=== PATIENT | male | born 1960 | race American Indian/Alaskan Native ===

== ENCOUNTER 2020-06-17 11:32 | Inpatient (IN) | payer OTHER ==
[2020-06-17] MEDS ORDERED: dexAMETHasone 4 MG/ML VIAL IV ONE (12:05)
--- NOTE | 2020-06-17 12:05 | Emergency Department Report ---
ED General Adult HPI - General Chief complaint: Dyspnea/Respdistress Stated complaint: SOB PUI?: Yes Time Seen by Provider: 06/17/20 11:40 Source: patient, EMS ( EMS documentation not available at time of chart dictation ), RN notes reviewed Mode of arrival: Stretcher Limitations: No Limitations, Physical Limitation - History of Present Illness Initial comments: The patient was evaluated in the emergency department for symptoms described in the history of present illness. He/she was evaluated in the context of the global COVID-19 pandemic, which necessitated consideration that the patient might be at risk for infection with the virus that causes COVID-19. Institutional protocols and algorithms that pertain to the evaluation of patients at risk for COVID-19 are in a state of rapid change based on information released by regulatory bodies including the CDC and federal and state organizations. These policies and algorithms were followed during the patient's care in the emergency department. Please note that these policies, procedures and recommendations changed on a rapid basis. During the entire history and physical examination, I had on complete personal protective equipment The patient is a 59-year-old gentleman. He is not known to myself previously. He was diagnosed with COVID-19 over the weekend. He presents to the ER today with a complaint of painless malaise, fatigue and shortness of breath. He was hypoxic in the field to the high 60s/low 70s. He was taking antibiotics over the weekend, not sure if he is taking steroids. He denies physical pain. He denies loss of taste and smell. Denies vomiting. Symptoms constant. Worsened with physical exertion. Decreased with rest. -: Gradual, days(s) Severity scale (0 -10): 2 Consistency: constant Improves with: rest Worsens with: movement - Related Data Allergies Allergy/AdvReac Type Severity Reaction Status Date / Time No Known Allergies Allergy Unverified 06/17/20 14:24 ED Review of Systems ROS: Stated complaint: SOB Other details as noted in HPI Constitutional: fever, malaise, weakness Eyes: denies: eye discharge ENT: congestion Respiratory: cough, shortness of breath Cardiovascular: denies: chest pain Gastrointestinal: denies: abdominal pain, nausea Musculoskeletal: myalgia Neurological: weakness Hematological/Lymphatic: denies: easy bleeding ED Past Medical Hx - Social History Smoking Status: Never Smoker Substance Use Type: None ED Physical Exam - General Limitations: Physical Limitation General appearance: alert, anxious, in distress, obese - Head Head exam: Present: atraumatic, normocephalic - Eye Eye exam: Present: normal appearance, EOMI. Absent: nystagmus - ENT ENT exam: Present: normal exam, normal orophraynx, mucous membranes moist, normal external ear exam - Neck Neck exam: Present: normal inspection, full ROM. Absent: tenderness, meningismus - Respiratory Respiratory exam: Present: respiratory distress, accessory muscle use. Absent: stridor - Cardiovascular Cardiovascular Exam: Present: normal rhythm, tachycardia, normal heart sounds. Absent: systolic murmur, diastolic murmur, rubs, gallop - GI/Abdominal GI/Abdominal exam: Present: soft. Absent: distended, tenderness, guarding, rebound, rigid, pulsatile mass - Rectal Rectal exam: Present: deferred - Extremities Exam Extremities exam: Present: normal inspection, full ROM, other (2+ pulses noted in the bilateral upper and lower extremities. There is no palpable cord. negative Homans sign. Muscular compartments are soft. The pelvis is stable.). Absent: pedal edema, calf tenderness - Back Exam Back exam: Present: normal inspection. Absent: tenderness, CVA tenderness (R), CVA tenderness (L), paraspinal tenderness, vertebral tenderness - Neurological Exam Neurological exam: Present: alert - Psychiatric Psychiatric exam: Present: anxious, other (No facial droop. Tongue midline. Extraocular movements intact bilaterally. Facial sensation intact to light touch in V1, V2, V3 distribution bilaterally. 5 and a 5 strength in 4 extremities. Sensation intact to light touch in 4 extremities.) - Skin Skin exam: Present: warm, dry, intact, normal color. Absent: rash ED Course Vital Signs 06/17/20 06/17/20 06/17/20 11:53 11:55 12:42 Temperature 97.7 F Pulse Rate 127 H Respiratory 14 14 Rate Blood Pressure 115/72 Blood Pressure [Left] O2 Sat by Pulse 93 93 Oximetry 06/17/20 06/17/20 12:59 14:12 Temperature Pulse Rate 123 H Respiratory 25 H Rate Blood Pressure Blood Pressure 112/71 [Left] O2 Sat by Pulse 95 94 Oximetry - Reevaluation(s) Reevaluation #1: 06/17/20 13:23 Appreciate that the patient meets sepsis/SIRS criteria. However, Covid patients have a propensity to develop acute respiratory distress syndrome. Therefore, patient will not benefit from aggressive fluid bolus 30 cc/kg. He will be given gentle fluids, and reassess. Reevaluation #2: 06/17/20 13:42 Laboratory studies reviewed and appreciated. Transaminitis and inflammatory markers consistent with Covid illness. We will admit to the hospitalist service Patient improved on high flow high humidity nasal cannula therapy. Reevaluation #3: 06/17/20 14:14 Hospital physician, Dr. Robb, to admit to the medical service. Patient improved on high flow, O2 sat particularly improved when the patient in prone position - Consultations Consultation #1: 06/17/20 14:29 Discussed the patient's history, physical, and pertinent findings with [place] administrative help physician, Dr. Cortez, Who has authorized the patient to be admitted to this [facility] ED Medical Decision Making - Lab Data Result diagrams: 06/17/20 12:33 06/17/20 12:33 Vital Signs 06/17/20 06/17/20 11:53 11:55 Pulse Rate 127 H Respiratory 14 14 Rate Blood Pressure 115/72 O2 Sat by Pulse 93 93 Oximetry Lab Results 06/17/20 06/17/20 06/17/20 Range/Units 12:33 12:33 12:33 WBC 19.5 H (4.5-11.0) K/mm3 RBC 5.18 H (3.65-5.03) M/mm3 Hgb 15.5 H (11.8-15.2) gm/dl Hct 45.2 (35.5-45.6) % MCV 87 (84-94) fl MCH 30 (28-32) pg MCHC 34 (32-34) % RDW 13.4 (13.2-15.2) % Plt Count 185 (140-440) K/mm3 Lymph % (Auto) 3.8 L (13.4-35.0) % Bullock % (Auto) 2.7 (0.0-7.3) % Eos % (Auto) 0.0 (0.0-4.3) % Baso % (Auto) 0.2 (0.0-1.8) % Lymph # (Auto) 0.7 L (1.2-5.4) K/mm3 Bullock # (Auto) 0.5 (0.0-0.8) K/mm3 Eos # (Auto) 0.0 (0.0-0.4) K/mm3 Baso # (Auto) 0.0 (0.0-0.1) K/mm3 Seg Neutrophils % Cigar Head Perforator Seg Neutrophils # 18.2 H (1.8-7.7) K/mm3 PT 16.5 H (12.2-14.9) Sec. INR 1.33 H (0.87-1.13) D-Dimer 1025.04 H (0-234) ng/mlDDU Sodium 130 L (137-145) mmol/L Potassium 3.4 L (3.6-5.0) mmol/L Chloride 95.0 L (98-107) mmol/L Carbon Dioxide 24 (22-30) mmol/L Anion Gap 14 mmol/L BUN 21 H (9-20) mg/dL Creatinine 0.8 (0.8-1.3) mg/dL Estimated GFR > 60 ml/min BUN/Creatinine Ratio 26 % Glucose 137 H (75-100) mg/dL Lactic Acid (0.7-2.0) mmol/L Calcium 7.9 L (8.4-10.2) mg/dL Magnesium 2.20 (1.7-2.3) mg/dL Total Bilirubin 0.70 (0.1-1.2) mg/dL AST 84 H (5-40) units/L ALT 67 H (7-56) units/L Alkaline Phosphatase 59 (35-129) units/L Lactate Dehydrogenase 437 H (91-180) units/L Total Creatine Kinase 310 H (55-170) units/L Troponin T < 0.010 (0.00-0.029) ng/mL C-Reactive Protein 27.90 H (0.00-1.30) mg/dL Total Protein 6.7 (6.3-8.2) g/dL Albumin 2.9 L (3.9-5) g/dL Albumin/Globulin Ratio 0.8 % // Range/Units 12:33 WBC (4.5-11.0) K/mm3 RBC (3.65-5.03) M/mm3 Hgb (11.8-15.2) gm/dl Hct (35.5-45.6) % MCV (84-94) fl MCH (28-32) pg MCHC (32-34) % RDW (13.2-15.2) % Plt Count (140-440) K/mm3 Lymph % (Auto) (13.4-35.0) % Bullock % (Auto) (0.0-7.3) % Eos % (Auto) (0.0-4.3) % Baso % (Auto) (0.0-1.8) % Lymph # (Auto) (1.2-5.4) K/mm3 Bullock # (Auto) (0.0-0.8) K/mm3 Eos # (Auto) (0.0-0.4) K/mm3 Baso # (Auto) (0.0-0.1) K/mm3 Seg Neutrophils % Seg Neutrophils # (1.8-7.7) K/mm3 PT (12.2-14.9) Sec. INR (0.87-1.13) D-Dimer (0-234) ng/mlDDU Sodium (137-145) mmol/L Potassium (3.6-5.0) mmol/L Chloride (98-107) mmol/L Carbon Dioxide (22-30) mmol/L Anion Gap mmol/L BUN (9-20) mg/dL Creatinine (0.8-1.3) mg/dL Estimated GFR ml/min BUN/Creatinine Ratio % Glucose (75-100) mg/dL Lactic Acid 2.50 H* (0.7-2.0) mmol/L Calcium (8.4-10.2) mg/dL Magnesium (1.7-2.3) mg/dL Total Bilirubin (0.1-1.2) mg/dL AST (5-40) units/L ALT (7-56) units/L Alkaline Phosphatase (35-129) units/L Lactate Dehydrogenase (91-180) units/L Total Creatine Kinase (55-170) units/L Troponin T (0.00-0.029) ng/mL C-Reactive Protein (0.00-1.30) mg/dL Total Protein (6.3-8.2) g/dL Albumin (3.9-5) g/dL Albumin/Globulin Ratio % - Radiology Data Radiology results: pending, report reviewed, image reviewed XR chest 1V ap INDICATION / CLINICAL INFORMATION: Dyspnea COMPARISON: None available. FINDINGS: SUPPORT DEVICES: None. HEART / MEDIASTINUM: No significant abnormality. LUNGS / PLEURA: Lateral airspace disease. Costophrenic sulci are sharp. No pneumothorax. ADDITIONAL FINDINGS: No significant additional findings. IMPRESSION: 1. Bilateral airspace disease concerning for infection. Covid is a consideration. Signer Name: Alan Parrish MD Signed: 06/17/2020 11:56 AM Workstation Name: Register My [employer] - Medical Decision Making Differential diagnosis, including but not limited to: Pneumonia, COVID-19, acute hypoxic respiratory failure Assessment and plan: 59-year-old gentleman, with diagnosed Covid over the weekend, likely presenting with natural history of Covid, and acute hypoxic r espiratory failure. He is protecting his airway, awake, alert, oriented, not encephalopathic. We will start high flow nasal cannula oxygen therapy. We will start antibiotic therapy empirically, and steroids. Courtesy consultation placed for infectious disease. Laboratory studies will be ordered to risk stratify for Covid cytokine storm. Will defer to inpatient team to follow-up on infectious disease consultation which I have placed as a courtesy. Patient will require admission to the hospital once initial diagnostics have resulted. I discussed this plan of care with the patient, who verbalized understanding, and is amenable to this plan of care. Critical Care Time: Yes Critical care time in (mins) excluding proc time.: 35 Critical care attestation.: If time is entered above; I have spent that time in minutes in the direct care of this critically ill patient, excluding procedure time. ED Disposition Clinical Impression: Acute respiratory failure with hypoxia, COVID-19, SIRS (systemic inflammatory response syndrome), Transaminitis, Hypokalemia Disposition: OP ADMIT IP TO THIS HOSP Is pt being admited?: Yes Does the pt Need Aspirin: No Condition: Serious Referrals: JAJA AYALA,ARIES Magallon [Other] - 3-5 Days
[2020-06-17] MEDS ORDERED: AZITHROMYCIN/NS 500 MG/250 ML 500 MG/250 ML BAG IV ONE (12:26)
[2020-06-17] MEDS ORDERED: cefTRIAXone/NS 1 GM/50 ML 1 GM/50 ML BAG IV ONE (12:26)
--- NOTE | 2020-06-17 13:00 | XRay Report ---
XR chest 1V ap INDICATION / CLINICAL INFORMATION: Dyspnea COMPARISON: None available. FINDINGS: SUPPORT DEVICES: None. HEART / MEDIASTINUM: No significant abnormality. LUNGS / PLEURA: Lateral airspace disease. Costophrenic sulci are sharp. No pneumothorax. ADDITIONAL FINDINGS: No significant additional findings. IMPRESSION: 1. Bilateral airspace disease concerning for infection. Covid is a consideration. Signer Name: Alan Parrish MD Signed: 06/17/2020 12:56 PM Workstation Name: [id number]
[2020-06-17 13:05] LABS: Hematocrit 45.2 % (35.5-45.6); Hemoglobin 15.5 gm/dl (11.8-15.2); Mean Corpuscular HGB Conc 34 % (32-34); Mean Corpuscular Volume 87 fl (84-94); Platelet Count 185 K/mm3 (140-440); Red Blood Count 5.18 M/mm3 (3.65-5.03); Red Cell Distribution Width 13.4 % (13.2-15.2)
[2020-06-17 13:09] LABS: Basophils % (Auto) 0.2 % (0.0-1.8); Lymphocytes # (Auto) 0.7 K/mm3 (1.2-5.4); Lymphocytes % (Auto) 3.8 % (13.4-35.0); Monocytes # (Auto) 0.5 K/mm3 (0.0-0.8); Monocytes % (Auto) 2.7 % (0.0-7.3)
[2020-06-17 13:14] LABS: INR 1.33 (0.87-1.13)
[2020-06-17 13:25] LABS: Alanine Aminotransferase 67 units/L (7-56); Albumin 2.9 g/dL (3.9-5); BUN/Creatinine Ratio 26; Blood Urea Nitrogen 21 mg/dL (9-20); Calcium 7.9 mg/dL (8.4-10.2); Hemolysis Index 8
--- NOTE | 2020-06-17 14:16 | History and Physical Report ---
<NELSON AVENDAÑO - Last Filed: 06/17/20 14:28> Medications and Allergies Allergies Allergy/AdvReac Type Severity Reaction Status Date / Time No Known Allergies Allergy Unverified 06/17/20 14:24 Active Meds: Active Medications Acetaminophen (Acetaminophen 325 Mg Tab) 650 mg PO Q4H PRN PRN Reason: Pain MILD(1-3)/Fever >100.5/[facility]OBERTS Ascorbic Acid (Ascorbic Acid 250 Mg Tab) 250 mg PO BID [facility] Cholecalciferol (Cholecalciferol (Vit D3) 400 Unit Tab) 1,000 unit PO QDAY [facility] Heparin Sodium (Porcine) (Heparin 5,000 Unit/1 Ml Vial) 5,000 unit SUB-Q Q12HR [facility] Hydromorphone HCl (Hydromorphone 1 Mg/1 Ml Inj) 0.25 mg IV Q4H PRN PRN Reason: Pain, Moderate (4-6) Potassium Chloride (Kcl 10meq/100ml) 10 meq in 100 mls @ 100 mls/hr IV Q1H [facility] Stop: 06/17/20 15:59 Ceftriaxone Sodium (Rocephin/Ns 2 Gm/100 Ml) 2 gm in 100 mls @ 200 mls/hr IV Q24H [facility]; Protocol Azithromycin (Zithromax/Ns) 500 mg in 250 mls @ 250 mls/hr IV Q24H [facility]; Protocol Methylprednisolone Sodium Succinate (Methylprednisolone Sod Succinate 40 Mg/1 Ml Inj) 40 mg IV Q8HR [facility] Ondansetron HCl (Ondansetron 4 Mg/2 Ml Inj) 4 mg IV Q8H PRN PRN Reason: Nausea And Vomiting Sodium Chloride (Sodium Chloride 0.9% 10 Ml Flush Syringe) 10 ml IV BID [facility] Sodium Chloride (Sodium Chloride 0.9% 10 Ml Flush Syringe) 10 ml IV PRN PRN PRN Reason: LINE FLUSH Zinc Sulfate (Zinc Sulfate 220 Mg Cap) 220 mg PO BID [facility] Exam - Constitutional Vitals: Temp Pulse Resp BP Pulse Ox 97.7 F 123 H 25 H 112/71 94 06/17/20 12:42 06/17/20 14:12 06/17/20 14:12 06/17/20 14:12 06/17/20 14:12 HEART Score - HEART Score Troponin: Troponin T < 0.010 ng/mL (0.00-0.029) 06/17/20 12:33 Results - Labs CBC & Chem 7: 06/17/20 12:33 06/17/20 12:33 Labs: Abnormal lab results 06/17/20 06/17/20 06/17/20 Range/Units 12:33 12:33 12:33 WBC 19.5 H (4.5-11.0) K/mm3 RBC 5.18 H (3.65-5.03) M/mm3 Hgb 15.5 H (11.8-15.2) gm/dl Lymph % (Auto) 3.8 L (13.4-35.0) % Lymph # (Auto) 0.7 L (1.2-5.4) K/mm3 Seg Neutrophils # 18.2 H (1.8-7.7) K/mm3 PT 16.5 H (12.2-14.9) Sec. INR 1.33 H (0.87-1.13) D-Dimer 1025.04 H (0-234) ng/mlDDU Sodium 130 L (137-145) mmol/L Potassium 3.4 L (3.6-5.0) mmol/L Chloride 95.0 L (98-107) mmol/L BUN 21 H (9-20) mg/dL Glucose 137 H (75-100) mg/dL Lactic Acid (0.7-2.0) mmol/L Calcium 7.9 L (8.4-10.2) mg/dL AST 84 H (5-40) units/L ALT 67 H (7-56) units/L Lactate Dehydrogenase 437 H (91-180) units/L Total Creatine Kinase 310 H (55-170) units/L C-Reactive Protein 27.90 H (0.00-1.30) mg/dL Albumin 2.9 L (3.9-5) g/dL 06/17/20 Range/Units 12:33 WBC (4.5-11.0) K/mm3 RBC (3.65-5.03) M/mm3 Hgb (11.8-15.2) gm/dl Lymph % (Auto) (13.4-35.0) % Lymph # (Auto) (1.2-5.4) K/mm3 Seg Neutrophils # (1.8-7.7) K/mm3 PT (12.2-14.9) Sec. INR (0.87-1.13) D-Dimer (0-234) ng/mlDDU Sodium (137-145) mmol/L Potassium (3.6-5.0) mmol/L Chloride (98-107) mmol/L BUN (9-20) mg/dL Glucose (75-100) mg/dL Lactic Acid 2.50 H* (0.7-2.0) mmol/L Calcium (8.4-10.2) mg/dL AST (5-40) units/L ALT (7-56) units/L Lactate Dehydrogenase (91-180) units/L Total Creatine Kinase (55-170) units/L C-Reactive Protein (0.00-1.30) mg/dL Albumin (3.9-5) g/dL <FLAVIA GALINDO - Last Filed: 06/17/20 16:12> History of Present Illness Chief complaint: I cannot breathe History of present illness: 59 YO Male with Obesity Hypoventilation Syndrome presents to ED for evaluation. Patient reports I feel weak and tired". Patient states that he has experienced generalized weakness, malaise, fatigue, decreased exercise tolerance, and shortness of breath over the past 1 week with persistently worsening symptoms with over the same timeframe. Patient states that he underwent a car coronavirus test over the weekend and was found to be coronavirus positive. EMS was notified and upon arrival the patient was found to be in distress with a pulse oximetry in the 60s. The patient was placed on supplemental oxygen and transported to [facility] for further care and evaluation of the aforementioned symptoms. Patient seen and evaluated in the emergency department. All lab imaging studies reviewed. Patient found to have a pulse oximetry of 76% on room air which is consistent with acute hypoxemic respiratory failure. Patient ini tiated on supplemental oxygen with mild improvement in symptoms. Patient also underwent chest x-ray and was found to have bilateral pneumonia complicated by sepsis, as well as acidosis. Patient admitted to medical floor and initiated on coronavirus protocol as well as pneumonia protocol. Patient denies fever, chills, chest pain, palpitations, productive cough, skin rash, recent ill contacts. No prior admission for review. No medication listed at time of admission for reconciliation. Advanced care planning conducted in ED. Past History Past Medical History: other (See HPI) Past Surgical History: No surgical history, Other (Reviewed) Social history: . denies: smoking, alcohol abuse, prescription drug abuse Family history: diabetes, hypertension Medications and Allergies Active Meds: Active Medications Potassium Chloride (Kcl 10meq/100ml) 10 meq in 100 mls @ 100 mls/hr IV Q1H [facility] Stop: 06/17/20 15:59 Review of Systems Constitutional: fatigue, weakness, malaise, no weight loss, no weight gain, no fever, no chills Ears, nose, mouth and throat: no ear pain, no ear discharge, no tinnitis, no decreased hearing, no nasal congestion, no sinus pain Cardiovascular: shortness of breath, no chest pain, no orthopnea, no palpitati ons Respiratory: cough with sputum, shortness of breath, no cough, no hemoptysis Gastrointestinal: no abdominal pain, no nausea, no vomiting, no diarrhea Genitourinary Male: no hematuria, no flank pain, no discharge, no urinary frequency Rectal: no pain, no incontinence, no bleeding Musculoskeletal: no neck stiffness, no neck pain, no arm numbness/tingling Integumentary: no rash, no pruritis, no redness, no sores, no wounds Neurological: no transient paralysis, no paralysis, no weakness, no parathesias, no numbness, no seizures, no syncope Psychiatric: no anxiety, no change in sleep habits, no insomnia, no hypersomnia, no change in appetite, no suicidal ideation, no disorientation Endocrine: no cold intolerance, no heat intolerance, no polyphagia, no polydipsia, no polyuria, no nocturia, no excessive sweating Hematologic/Lymphatic: no easy bruising, no lymphadenopathy, no lymphedema Allergic/Immunologic: no urticaria, no allergic rhinitis, no persistent infections, no anaphylaxis Exam - Constitutional Vitals: Temp Pulse Resp BP Pulse Ox 97.7 F 123 H 25 H 112/71 94 06/17/20 12:42 06/17/20 14:12 06/17/20 14:12 06/17/20 14:12 06/17/20 14:12 General appearance: Present: mild distress - EENT Eyes: Present: PERRL ENT: hearing intact, clear oral mucosa - Neck Neck: Present: supple, normal ROM - Respiratory Respiratory effort: normal, labored, accessory muscle use Respiratory: bilateral: diminished, rhonchi - Cardiovascular Heart Sounds: Present: S1 & S2. Absent: rub, click - Extremities Extremities: pulses symmetrical, No edema Peripheral Pulses: within normal limits - Abdominal General gastrointestinal: Present: soft, non-tender, non-distended, normal bowel sounds Male genitourinary: Present: normal - Integumentary Integumentary: Present: clear, warm, dry - Musculoskeletal Musculoskeletal: generalized weakness - Psychiatric Psychiatric: appropriate mood/affect, intact judgment & insight - Neurologic Neurologic: CNII-XII intact, moves all extremities HEART Score - HEART Score Troponin: Troponin T < 0.010 ng/mL (0.00-0.029) 06/17/20 12:33 Results - Labs CBC & Chem 7: 06/17/20 12:33 06/17/20 14:48 Labs: Abnormal lab results 06/17/20 06/17/20 06/17/20 Range/Units 12:33 12:33 12:33 WBC 19.5 H (4.5-11.0) K/mm3 RBC 5.18 H (3.65-5.03) M/mm3 Hgb 15.5 H (11.8-15.2) gm/dl Lymph % (Auto) 3.8 L (13.4-35.0) % Lymph # (Auto) 0.7 L (1.2-5.4) K/mm3 Seg Neutrophils # 18.2 H (1.8-7.7) K/mm3 PT 16.5 H (12.2-14.9) Sec. INR 1.33 H (0.87-1.13) D-Dimer 1025.04 H (0-234) ng/mlDDU Sodium 130 L (137-145) mmol/L Potassium 3.4 L (3.6-5.0) mmol/L Chloride 95.0 L (98-107) mmol/L BUN 21 H (9-20) mg/dL Glucose 137 H (75-100) mg/dL Lactic Acid (0.7-2.0) mmol/L Calcium 7.9 L (8.4-10.2) mg/dL AST 84 H (5-40) units/L ALT 67 H (7-56) units/L Lactate Dehydrogenase 437 H (91-180) units/L Total Creatine Kinase 310 H (55-170) units/L C-Reactive Protein 27.90 H (0.00-1.30) mg/dL Albumin 2.9 L (3.9-5) g/dL 06/17/20 Range/Units 12:33 WBC (4.5-11.0) K/mm3 RBC (3.65-5.03) M/mm3 Hgb (11.8-15.2) gm/dl Lymph % (Auto) (13.4-35.0) % Lymph # (Auto) (1.2-5.4) K/mm3 Seg Neutrophils # (1.8-7.7) K/mm3 PT (12.2-14.9) Sec. INR (0.87-1.13) D-Dimer (0-234) ng/mlDDU Sodium (137-145) mmol/L Potassium (3.6-5.0) mmol/L Chloride (98-107) mmol/L BUN (9-20) mg/dL Glucose (75-100) mg/dL Lactic Acid 2.50 H* (0.7-2.0) mmol/L Calcium (8.4-10.2) mg/dL AST (5-40) units/L ALT (7-56) units/L Lactate Dehydrogenase (91-180) units/L Total Creatine Kinase (55-170) units/L C-Reactive Protein (0.00-1.30) mg/dL Albumin (3.9-5) g/dL Assessment and Plan - Patient Problems (1) Sepsis Current Visit: Yes Status: Acute Qualifiers: Severe sepsis acute organ dysfunction type: acute respiratory failure Plan to address problem: Sepsis protocol: Chest x-ray, CBC, urinalysis, blood culture, IV antibiotic therapy, IV fluid resuscitation therapy as clinically indicated. Care is taken to avoid fluid overload in a patient with coronavirus infection to avoid fluid overload and flash pulmonary edema with concomitant worsening acute respiratory failure. (2) Acute respiratory failure with hypoxia Current Visit: Yes Status: Acute Plan to address problem: Supplemental oxygen, pulse oximetry, nebulizer therapy, prone positioning while in bed as tolerated, high flow supplemental oxygen as clinically indicated, (3) COVID-19 Current Visit: Yes Status: Acute Plan to address problem: Coronavirus protocol: Contact precaution, isolation precautions, IV antibiotic therapy, IV steroid therapy, supplemental oxygen, supportive care. Prone positioning while in bed. (4) Hypokalemia Current Visit: Yes Status: Acute Plan to address problem: Repleted in ED. Repeat BMP in a.m. (5) Pneumonia Current Visit: Yes Status: Acute Plan to address problem: Pneumonia protocol: Chest x-ray, CBC, CMP, IV antibiotic therapy, supplemental oxygen, pulse oximetry, blood cultures. (6) Acidosis Current Visit: Yes Status: Acute Plan to address problem: BMP, serial lactic acid level, repeat BMP in a.m. (7) DVT prophylaxis Current Visit: Yes Status: Acute Plan to address problem: SCD to bilateral lower extremities while in bed, prophylactic anticoagulation (8) Advance care planning Current Visit: Yes Status: Acute Plan to address problem: Disease education conducted, patient is full code, prognosis discussed, care plan discussed, patient knowledges understanding and agreement with care plan, +30 minutes.
[2020-06-17] MEDS ORDERED: ONDANSETRON 4 MG/2 ML INJ IV PRN (14:17)
[2020-06-17] MEDS ORDERED: ACETAMINOPHEN 325 MG TAB PO PRN (14:21)
[2020-06-17] MEDS ORDERED: HYDROmorphone 1 MG/1 ML INJ IV PRN (14:21)
[2020-06-17 15:04] LABS: Platelet Estimate Consistent w Auto; RBC Morphology Normal; Total Cells Counted 100
[2020-06-17 15:21] LABS: C-Reactive Protein 24.7 mg/dL (0.00-1.30)
--- NOTE | 2020-06-17 15:24 | Consultation ---
History of Present Illness - Reason for Consult Consult date: 06/17/20 COVID Requesting physician: NELSON AVENDAÑO - History of Present Illness The patient is a 59-year-old male with obesity, obesity hypoventilation syndrome came into the emergency room with cough, shortness of breath, fatigue. He was diagnosed with COVID-19 as an outpatient. He was noted to be hypoxic and hence brought to the hospital. No fever. Currently requiring high flow oxygen by nasal cannula. Infectious diseases was consulted for additional evaluation. Labs showed leukocytosis, D-dimer 1025, mild lactate elevation, transaminitis, elevated CRP. Procalcitonin 2.25, ferritin 2297, LDH 437 Review of Systems: reviewed in the chart, unable to obtain, minimize risk of transmission Medications and Allergies Allergies Allergy/AdvReac Type Severity Reaction Status Date / Time No Known Allergies Allergy Unverified 06/17/20 14:24 Active Meds: Active Medications Acetaminophen (Acetaminophen 325 Mg Tab) 650 mg PO Q4H PRN PRN Reason: Pain MILD(1-3)/Fever >100.5/ROBERTS Ascorbic Acid (Ascorbic Acid 250 Mg Tab) 250 mg PO BID CONNOR Cholecalciferol (Cholecalciferol (Vit D3) 1000 Unit (25 Mcg) Tab) 1,000 unit PO DAILY CONNOR Heparin Sodium (Porcine) (Heparin 5,000 Unit/1 Ml Vial) 5,000 unit SUB-Q Q12HR CONNOR Hydromorphone HCl (Hydromorphone 1 Mg/1 Ml Inj) 0.25 mg IV Q4H PRN PRN Reason: Pain, Moderate (4-6) Potassium Chloride (Kcl 10meq/100ml) 10 meq in 100 mls @ 100 mls/hr IV Q1H CONNOR Stop: 06/17/20 15:59 Ceftriaxone Sodium (Rocephin/Ns 2 Gm/100 Ml) 2 gm in 100 mls @ 200 mls/hr IV Q24H CONNOR; Protocol Azithromycin (Zithromax/Ns) 500 mg in 250 mls @ 250 mls/hr IV Q24H CONNOR; Protocol Methylprednisolone Sodium Succinate (Methylprednisolone Sod Succinate 40 Mg/1 Ml Inj) 40 mg IV Q8HR CONNOR Ondansetron HCl (Ondansetron 4 Mg/2 Ml Inj) 4 mg IV Q8H PRN PRN Reason: Nausea And Vomiting Sodium Chloride (Sodium Chloride 0.9% 10 Ml Flush Syringe) 10 ml IV BID CONNOR Sodium Chloride (Sodium Chloride 0.9% 10 Ml Flush Syringe) 10 ml IV PRN PRN PRN Reason: LINE FLUSH Zinc Sulfate (Zinc Sulfate 220 Mg Cap) 220 mg PO BID CONNOR Physical Examination - Physical Exam Narrative exam: Physical Exam (reviewed in chart to minimize risk of transmission) Constitutional: deferred Head, Ears, Nose: deferred Eyes: deferred Neck: deferred Oral: deferred Cardiovascular: deferred Respiratory: deferred GI: deferred Musculoskeletal: deferred Skin: deferred Hem/Lymphatic: deferred Psych: deferred Neurological: deferred - Constitutional Vitals: Vital Signs Temp Pulse Resp BP Pulse Ox 97.7 F 123 H 25 H 112/71 94 06/17/20 12:42 06/17/20 14:12 06/17/20 14:12 06/17/20 14:12 06/17/20 14:12 Temperature -Last 24 Hours Temperature 97.7 F Results - Labs CBC & Chem 7: 06/17/20 12:33 06/17/20 14:48 Labs: Abnormal lab results 06/17/20 06/17/20 06/17/20 Range/Units 12:33 12:33 12:33 WBC 19.5 H (4.5-11.0) K/mm3 RBC 5.18 H (3.65-5.03) M/mm3 Hgb 15.5 H (11.8-15.2) gm/dl Lymph % (Auto) 3.8 L (13.4-35.0) % Lymph # (Auto) 0.7 L (1.2-5.4) K/mm3 Seg Neuts % (Manual) 99.0 H (40.0-70.0) % Lymphocytes % (Manual) 1.0 L (13.4-35.0) % Seg Neutrophils # 18.2 H (1.8-7.7) K/mm3 Seg Neutrophils # Man 19.3 H (1.8-7.7) K/mm3 Lymphocytes # (Manual) 0.2 L (1.2-5.4) K/mm3 PT 16.5 H (12.2-14.9) Sec. INR 1.33 H (0.87-1.13) D-Dimer 1025.04 H (0-234) ng/mlDDU Sodium 130 L (137-145) mmol/L Potassium 3.4 L (3.6-5.0) mmol/L Chloride 95.0 L (98-107) mmol/L BUN 21 H (9-20) mg/dL Glucose 137 H (75-100) mg/dL Lactic Acid (0.7-2.0) mmol/L Calcium 7.9 L (8.4-10.2) mg/dL Ferritin (30.0-300.0) ng/mL AST 84 H (5-40) units/L ALT 67 H (7-56) units/L Lactate Dehydrogenase 437 H (91-180) units/L Total Creatine Kinase 310 H (55-170) units/L C-Reactive Protein 27.90 H (0.00-1.30) mg/dL Albumin 2.9 L (3.9-5) g/dL 06/17/20 06/17/20 06/17/20 Range/Units 12:33 12:33 14:48 WBC (4.5-11.0) K/mm3 RBC (3.65-5.03) M/mm3 Hgb (11.8-15.2) gm/dl Lymph % (Auto) (13.4-35.0) % Lymph # (Auto) (1.2-5.4) K/mm3 Seg Neuts % (Manual) (40.0-70.0) % Lymphocytes % (Manual) (13.4-35.0) % Seg Neutrophils # (1.8-7.7) K/mm3 Seg Neutrophils # Man (1.8-7.7) K/mm3 Lymphocytes # (Manual) (1.2-5.4) K/mm3 PT (12.2-14.9) Sec. INR (0.87-1.13) D-Dimer (0-234) ng/mlDDU Sodium (137-145) mmol/L Potassium (3.6-5.0) mmol/L Chloride (98-107) mmol/L BUN (9-20) mg/dL Glucose (75-100) mg/dL Lactic Acid 2.50 H* 2.20 H* (0.7-2.0) mmol/L Calcium (8.4-10.2) mg/dL Ferritin 2297.0 H (30.0-300.0) ng/mL AST (5-40) units/L ALT (7-56) units/L Lactate Dehydrogenase (91-180) units/L Total Creatine Kinase (55-170) units/L C-Reactive Protein (0.00-1.30) mg/dL Albumin (3.9-5) g/dL 06/17/20 06/17/20 Range/Units 14:48 14:48 WBC (4.5-11.0) K/mm3 RBC (3.65-5.03) M/mm3 Hgb (11.8-15.2) gm/dl Lymph % (Auto) (13.4-35.0) % Lymph # (Auto) (1.2-5.4) K/mm3 Seg Neuts % (Manual) (40.0-70.0) % Lymphocytes % (Manual) (13.4-35.0) % Seg Neutrophils # (1.8-7.7) K/mm3 Seg Neutrophils # Man (1.8-7.7) K/mm3 Lymphocytes # (Manual) (1.2-5.4) K/mm3 PT (12.2-14.9) Sec. INR (0.87-1.13) D-Dimer 939.89 H (0-234) ng/mlDDU Sodium (137-145) mmol/L Potassium (3.6-5.0) mmol/L Chloride (98-107) mmol/L BUN (9-20) mg/dL Glucose 141 H (75-100) mg/dL Lactic Acid (0.7-2.0) mmol/L Calcium (8.4-10.2) mg/dL Ferritin (30.0-300.0) ng/mL AST (5-40) units/L ALT (7-56) units/L Lactate Dehydrogenase 503 H (91-180) units/L Total Creatine Kinase (55-170) units/L C-Reactive Protein 24.70 H (0.00-1.30) mg/dL Albumin (3.9-5) g/dL - Imaging and Cardiology Chest x-ray: report reviewed, image reviewed (b/l airspace disease) Assessment and Plan Cultures: SARS CoV2 PCR: Positive as outpatient Blood culture: In process A/P: 59-year-old male with obesity, obesity hypoventilation syndrome: #Bilateral pneumonia: Secondary to COVID-19. Procalcitonin is also high, treat with empiric antibiotics. Inflammatory markers elevated. #Acute hypoxic respiratory failure: On HFNC #Transaminitis: Likely secondary to COVID-19 Recs: -already on solumedrol per primary -IV remdesivir added -Continue empiric antibiotics: Ceftriaxone + Azithromycin -prophylactic anticoagulation based on d-dimer per hospital protocol -trend ferritin, LDH, d-dimer, CRP every 2-3 days for risk stratification and to assess disease progression Tj Fajardo MD, FACP [facility] O: [phone] F: [phone]
[2020-06-17] MEDS: POTASSIUM CHLORIDE 10 MEQ 10 MEQ/100 ML BAG IV SCH ×2 (15:44→16:57)
[2020-06-17 16:20] LABS: Mucus,Urine FEW /HPF
[2020-06-17 16:21] LABS: Bilirubin,Urine NEG (Negative); Blood,Urine SM (Negative); Color,Urine Yellow (Yellow); Urobilinogen,Urine < 2.0 mg/dL (<2.0)
[2020-06-17] MEDS ORDERED: REMDESIVIR 200 MG in SODIUM CHLORIDE 0.9% 250ML 250 ML IV ONE (17:00)
[2020-06-17] MEDS ORDERED: REMDESIVIR 100 MG VIAL IV ONE (17:00)
[2020-06-17] MEDS ORDERED: LORazepam 2 MG/ML VIAL IV PRN ×2 (17:05→22:52)
[2020-06-17] MEDS ORDERED: ALBUTEROL 2.5 MG/3 ML NEBU IH ONE (17:41)
[2020-06-17] MEDS ORDERED: dilTIAZem 25 MG/5 ML INJ IV STA (18:25)
[2020-06-17] MEDS ORDERED: ADENOSINE 6 MG/2 ML INJ IV ONE ×2 (18:57→21:32)
[2020-06-17] MEDS ORDERED: METOPROLOL TARTRATE 5 MG/5 ML INJ IV ONE ×3 (20:23→21:32)
[2020-06-17] MEDS ORDERED: AMIODARONE 150 MG in DEXTROSE 5% IN WATER 97 ML IV ONE (20:30)
[2020-06-17] MEDS ORDERED: dilTIAZem/D5W 100 MG/100 ML BAG IV ONE (20:39)
[2020-06-17] MEDS ORDERED: dilTIAZem/D5W 100 MG/100 ML BAG IV SCH (21:00)
--- NOTE | 2020-06-17 21:25 | Procedure Note ---
Date of procedure: 06/17/20 Pre-op diagnosis: IV access Post-op diagnosis: same Procedure: Patient is 59-year-old admitted patient was admitted for Covid. The hospitalist is asked me to place an IV because the patient does not have IV access and is currently in SVT. Patient has a small hand 22 that the nurse is using to give the cardiac drugs. Central Venous Line Placement: Indication: Hemodynamic monitoring/Intravenous access The patient gave verbal consent. I discussed the procedure at length with the patient. Patient voiced understanding and agreed to have the central line placed. A time-out was completed verifying correct patient, procedure, site, positioning.. The patient was placed in a dependent position appropriate for central line placement based on the vein to be cannulated. The patients right groin was prepped and draped in sterile fashion. 1% Lidocaine was used to anesthetize the surrounding skin area. Adequate anesthesia was achieved. An ultrasound was used in a sterile fashion to identify vasculature. A triple lumen catheter was introduced into the the common femoral vein using the Seldinger technique and under ultrasound guidance. The catheter was threaded smoothly over the guide wire and appropriate blood return was obtained. Each lumen of the catheter was evacuated of air and flushed with sterile saline. The catheter was then sutured in place to the skin and a sterile dressing applied. Perfusion to the extremity distal to the point of catheter insertion was checked and found to be adequate. Nurse given communication order to use line. Estimated Blood Loss: minimal The patient tolerated the procedure well and there were no complications. Care will be transferred back to the primary team. Estimated blood loss: minimal Pathology: none Condition: critical Disposition: ICU
[2020-06-17] MEDS ORDERED: AMIODARONE 900 MG in DEXTROSE 5% IN WATER 482 ML IV SCH (22:00)
[2020-06-17] MEDS ORDERED: ETOMIDATE 20 MG/10 ML INJ IV ONE (22:45)
[2020-06-17] MEDS ORDERED: ROCURONIUM 50 MG/5 ML INJ IV ONE (22:45)
[2020-06-17] MEDS ORDERED: MINERAL OIL/PETROLATUM, WHITE OPHTH OINT 3.5 GM OU PRN (22:52)
[2020-06-17] MEDS ORDERED: SODIUM CHLORIDE 0.9% 500 ML 500 ML IV ONE (22:58)
[2020-06-17] MEDS ORDERED: LORazepam 100 MG in SODIUM CHLORIDE 0.9% 50 ML, EMPTY BAG 0 ML IV SCH (23:00)
[2020-06-17] MEDS ORDERED: labetaloL 200 MG in DEXTROSE 5% IN WATER 160 ML IV SCH (23:00)
--- NOTE | 2020-06-17 23:10 | Procedure Note ---
Date of procedure: 06/17/20 Pre-op diagnosis: Respiratory failure Post-op diagnosis: same Procedure: Patient is a 59-year-old patient is admitted to the hospital service. Patient is here for Covid. Patient is severely hypoxic. Patient is also confused. Patient is not able to use BiPAP anymore and the hospitalist is asked that I intubate the patient. Endotracheal Intubation: Indication: Respiratory Distress A time-out was completed verifying correct patient, procedure, site, positioning,. The patient was placed in a flat position. Sedation was obtained using etomidate 20 mg and rocuronium 50 mg. The patient was easily ventilated using an ambu bag. The [employer] was used and inserted into the oropharynx at which time there was a Grade 1 view of the vocal cords. A 7.5- maltese endotracheal tube was inserted and visualized going through the vocal cords. The stylette was removed. Colorimetric change was visualized on the capnography. Breath sounds were heard in both lung block equally. The endotracheal tube was placed at 22cm, measured at the teeth. No epigastric sounds were noted. Equal rise and fall of the chest. Patient's oxygen saturation improved after intubation. A chest x-ray was ordered to assess for pneumothorax and verify endotrachealtube placement. Estimated Blood Loss: none The patient tolerated the procedure well and there were no complications. Care will be transferred back to the primary team. Anesthesia: other (Rapid sequence intubation) Estimated blood loss: none Pathology: none Condition: critical Disposition: ICU
--- NOTE | 2020-06-17 23:28 | Event Note ---
Date: 06/17/20 YONIS CARMONA called on 59-year-old white male who was admitted earlier this evening for pneumonia possibly secondary to Covid with associated respiratory failure and sepsis. He was said to be in SVT and subsequently having atrial fibrillation during his initial presentation in IMCU. He was given IV labetalol, dose of amiodarone and subsequently placed on Cardizem drip. However all the above intervention did not control his heart rate. Patient was found in severe respiratory distress. Oxygen saturation was found to be in the 40s. Patient was subsequently intubated by the ER physician. Patient transferred into the intensive care unit. Will monitor ABG. Will await further evaluation by propeller tester and television news anchor.
--- NOTE | 2020-06-17 23:55 | XRay Report ---
CHEST 1 VIEW 06/17/2020 10:38 PM INDICATION / CLINICAL INFORMATION: ETT placement. COMPARISON: 12:29 PM FINDINGS: SUPPORT DEVICES: Endotracheal tube has been placed with the tip 4.8 cm above the marnie. HEART / MEDIASTINUM: No significant abnormality. LUNGS / PLEURA: Bilateral pulmonary opacities are unchanged. No pneumothorax. ADDITIONAL FINDINGS: No significant additional findings. IMPRESSION: 1. Endotracheal tube in expected position. Signer Name: Katie Pringle MD Signed: 06/17/2020 11:51 PM Workstation Name: [id number]
[2020-06-17] MEDS ORDERED: NORepinephrine/NS 4 MG-250 ML 4 MG/250 ML BAG IV ONE (23:57)
[2020-06-18] MEDS ORDERED: SODIUM CHLORIDE 0.9% 1000 ML 1,000 ML IV ONE (00:06)
[2020-06-18] MEDS ORDERED: fentaNYL DRIP Premix 2,000 MCG/100 ML BAG IV ONE (00:58)
[2020-06-18] MEDS: fentaNYL DRIP Premix 2,000 MCG/100 ML BAG IV SCH ×5 (01:15→22:24)
[2020-06-18] MEDS: fentaNYL 100 MCG/2 ML INJ IV PRN (01:22)
[2020-06-18] MEDS: NORepinephrine/NS 4 MG-250 ML 4 MG/250 ML BAG IV SCH ×9 (01:43→22:24)
[2020-06-18] MEDS ORDERED: VASOPRESSIN 20 UNIT in SODIUM CHLORIDE 0.9% 100 ML IV SCH (02:00)
--- NOTE | 2020-06-18 02:30 | XRay Report ---
ABDOMEN 1 VIEW 06/18/2020 1:24 AM INDICATION / CLINICAL INFORMATION: NG TUBE. COMPARISON: None available. FINDINGS: TUBES / LINES: Esophagogastric tube is present in the distal stomach. BOWEL GAS PATTERN: No significant abnormality. FREE AIR / EXTRALUMINAL GAS: None. ADDITIONAL FINDINGS: No significant additional findings. IMPRESSION: 1. Esophagogastric tube in expected position. Signer Name: Katie Pringle MD Signed: 06/18/2020 2:26 AM Workstation Name: [email or web address]
[2020-06-18] MEDS: ZINC SULFATE 220 MG CAP PO SCH ×3 (05:18→23:05)
[2020-06-18] MEDS: ASCORBIC ACID 250 MG TAB PO SCH ×3 (05:18→23:12)
[2020-06-18] MEDS: methylPREDNISolone Sod Succinate 40 MG/1 ML INJ IV SCH ×2 (05:31→07:31)
[2020-06-18 05:58] LABS: Hematocrit 41.7 % (35.5-45.6); Hemoglobin 14.1 gm/dl (11.8-15.2); Mean Corpuscular HGB Conc 34 % (32-34); Mean Corpuscular Volume 88 fl (84-94); Platelet Count 216 K/mm3 (140-440); Red Blood Count 4.75 M/mm3 (3.65-5.03); Red Cell Distribution Width 14.1 % (13.2-15.2)
[2020-06-18 06:10] LABS: Calcium 7.2 mg/dL (8.4-10.2)
[2020-06-18 06:12] LABS: Platelet Estimate Consistent w Auto; Total Cells Counted 100
[2020-06-18] MEDS: POTASSIUM CHLORIDE 10 MEQ 10 MEQ/100 ML BAG IV SCH (07:28)
[2020-06-18] MEDS: SODIUM CHLORIDE 0.9% 50 ML IVPB IV SCH (07:29)
[2020-06-18] MEDS: HEPARIN 5,000 UNIT/1 ML VIAL SUB-Q SCH ×3 (07:30→23:10)
--- NOTE | 2020-06-18 08:37 | Consultation ---
History of Present Illness Consult date: 06/18/20 Requesting physician: FLAVIA GALINDO Reason for consult: other (COVID ARDS, PNEUMONIA) History of present illness: The patient is a 59-year-old male with obesity, obesity hypoventilation syndrome came into the emergency room with cough, shortness of breath, fatigue. He was diagnosed with COVID-19 as an outpatient. He was noted to be hypoxic and hence brought to the hospital. No fever. Currently requiring high flow oxygen by nasal cannula. Infectious diseases was consulted for additional evaluation. Labs showed leukocytosis, D-dimer 1025, mild lactate elevation, transaminitis, elevated CRP. Procalcitonin 2.25, ferritin 2297, LDH 437 Patient was admitted on high flow oxygen, decompensated on BIPAP and was transferred to the ICU and was orally intubated. Currently intubated, on MVS, PEEP +14, FIO2 100% On vasopressin and norepinephrine On Fentanyl and Lorazepam Patient seen and examined. Vitals, labs, medications, chart and imaging reviewed. Discussed with respiratory and nursing staff Past History Past Medical History: other (See HPI) Past Surgical History: No surgical history, Other (Reviewed) Social history: . denies: smoking, alcohol abuse, prescription drug abuse Family history: diabetes, hypertension Medications and Allergies Allergies Allergy/AdvReac Type Severity Reaction Status Date / Time No Known Allergies Allergy Unverified 06/17/20 14:24 Active Meds: Active Medications Acetaminophen (Acetaminophen 325 Mg Tab) 650 mg PO Q4H PRN PRN Reason: Pain MILD(1-3)/Fever >100.5/ROBERTS Ascorbic Acid (Ascorbic Acid 250 Mg Tab) 250 mg PO BID [facility] Last Admin: 06/18/20 05:18 Dose: Not Given Documented by: Cholecalciferol (Cholecalciferol (Vit D3) 1000 Unit (25 Mcg) Tab) 1,000 unit PO DAILY [facility] Fentanyl (Fentanyl 100 Mcg/2 Ml Inj) 50 mcg IV Q10MIN PRN PRN Reason: ANALGESIA Last Admin: 06/18/20 01:22 Dose: 50 mcg Documented by: Heparin Sodium (Porcine) (Heparin 5,000 Unit/1 Ml Vial) 5,000 unit SUB-Q Q12HR [facility] Last Admin: 06/18/20 07:30 Dose: Not Given Documented by: Hydromorphone HCl (Hydromorphone 1 Mg/1 Ml Inj) 0.25 mg IV Q4H PRN PRN Reason: Pain, Moderate (4-6) Hydrophilic Ointment (Lip Therapy Vaseline) 1 applic TP Q2HR PRN PRN Reason: Dry Lips Ceftriaxone Sodium (Rocephin/Ns 2 Gm/100 Ml) 2 gm in 100 mls @ 200 mls/hr IV Q24H [facility]; Protocol Azithromycin (Zithromax/Ns) 500 mg in 250 mls @ 250 mls/hr IV Q24H [facility]; Protocol REMDESIVIR 100 mg/ Sodium (Chloride) 250 mls @ 500 mls/hr IV Q24HR@2100 [facility] Stop: 06/21/20 21:29 Diltiazem HCl (Cardizem/D5w 100mg/100ml) 100 mg in 100 mls @ 5 mls/hr IV TITR [facility]; Protocol Amiodarone HCl 900 mg/ (Dextrose) 500 mls @ 33.333 mls/hr IV DIRECT [facility]; Protocol Labetalol HCl 200 mg/ Dextrose 200 mls @ 120 mls/hr IV TITR [facility]; Protocol Last Titration: 06/18/20 00:00 Dose: 0 mg/min, 0 mls/hr Documented by: Lorazepam 100 mg/ Sodium Chloride/ Miscellaneous Information 100 mls @ 1 mls/hr IV TITR [facility]; Protocol Last Titration: 06/18/20 08:04 Dose: 4 mg/hr, 4 mls/hr Documented by: Norepinephrine (Levophed Drip 4 Mg/Ns 250 Ml) 4 mg in 250 mls @ 7.5 mls/hr IV TITR [facility]; Protocol Last Admin: 06/18/20 07:57 Dose: 24 mcg/min, 90 mls/hr Documented by: Propofol (Diprivan 10 Mg/Ml) 1,000 mg in 100 mls @ 3.402 mls/hr IV TITR [facility]; Protocol Fentanyl Citrate (Fentanyl Drip Premix) 2,000 mcg in 100 mls @ 5.67 mls/hr IV TITR [facility]; Protocol Last Titration: 06/18/20 02:19 Dose: 1 mcg/kg/hr, 5.67 mls/hr Documented by: Vasopressin 20 unit/ Sodium (Chloride) 101 mls @ 12.12 mls/hr IV TITR [facility]; Protocol Last Admin: 06/18/20 02:12 Dose: 0.04 units/min, 12.12 mls/hr Documented by: Lorazepam (Lorazepam 2 Mg/Ml Vial) 1 mg IV BID PRN PRN Reason: Anxiety Last Admin: 06/17/20 17:10 Dose: 1 mg Documented by: Lorazepam (Lorazepam 2 Mg/Ml Vial) 2 mg IV Q10MIN PRN PRN Reason: Agitation Methylprednisolone Sodium Succinate (Methylprednisolone Sod Succinate 40 Mg/1 Ml Inj) 40 mg IV Q8HR [facility] Last Admin: 06/18/20 07:31 Dose: Not Given Documented by: Multi-Ingred Cream/Lotion/Oil/Oint (Mineral Oil/Petrolatum, White Ophth Oint 3.5 Gm) 1 applic OU Q4HR PRN PRN Reason: Dry Eye(s) Ondansetron HCl (Ondansetron 4 Mg/2 Ml Inj) 4 mg IV Q8H PRN PRN Reason: Nausea And Vomiting Sodium Chloride (Sodium Chloride 0.9% 10 Ml Flush Syringe) 10 ml IV BID [facility] Last Admin: 06/18/20 07:31 Dose: Not Given Documented by: Sodium Chloride (Sodium Chloride 0.9% 10 Ml Flush Syringe) 10 ml IV PRN PRN PRN Reason: LINE FLUSH Sodium Chloride (Sodium Chloride 0.9% 50 Ml Ivpb) 50 ml IV Q24HR@2100 [facility] Stop: 06/20/20 21:01 Last Admin: 06/18/20 07:29 Dose: Not Given Documented by: Zinc Sulfate (Zinc Sulfate 220 Mg Cap) 220 mg PO BID [facility] Last Admin: 06/18/20 05:18 Dose: Not Given Documented by: Review of Systems ROS unobtainable: due to endotracheal tube, due to mental status Physical Examination Vital signs: Vital Signs Pulse Resp BP Pulse Ox 127 H 14 115/72 93 06/17/20 11:53 06/17/20 11:53 06/17/20 11:53 06/17/20 11:53 Limitations: Physical Limitation General appearance: obese man, orally intubated ETT 7.5cm at 23cm - Head Head exam: Present: atraumatic, normocephalic Large neck circumference - Eye Eye exam: Present: normal appearance, EOMI. - ENT ENT exam: Present: normal exam, normal orophraynx, mucous membranes moist, normal external ear exam - Neck Neck exam: Present: normal inspection, full ROM. Absent: tenderness, meningismus - Respiratory Respiratory exam: Present: respiratory distress, accessory muscle use, decreased AE bilaterally with rhonchi - Cardiovascular Cardiovascular Exam: Present: normal rhythm, tachycardia, normal heart sounds. Absent: systolic murmur, diastolic murmur, rubs, gallop - GI/Abdominal GI/Abdominal exam: Present: soft. Absent: distended, tenderness, guarding, rebound, rigid, pulsatile mass - Rectal Rectal exam: Present: deferred - Extremities Exam Extremities exam: Present: normal inspection, full ROM, other (2+ pulses noted in the bilateral upper and lower extremities. There is no palpable cord. negative Homans sign. Muscular compartments are soft. Absent: pedal edema, calf tenderness - Neurological Exam Neurological exam: Present: sedated Results - Laboratory Findings CBC and BMP: 06/18/20 05:39 06/18/20 05:39 ABG ABG pH 7.388 (7.320-7.450) 06/18/20 03:55 POC ABG pCO2 33.4 mmHg (32.0-48.0) 06/18/20 03:55 POC ABG pO2 48.3 mmHg (83-108) L 06/18/20 03:55 POC ABG HCO3 19.7 06/18/20 03:55 PT/INR, D-dimer PT 16.5 Sec. (12.2-14.9) H 06/17/20 12:33 INR 1.33 (0.87-1.13) H 06/17/20 12:33 D-Dimer 939.89 ng/mlDDU (0-234) H 06/17/20 14:48 Abnormal lab findings: Abnormal Labs 06/17/20 06/17/20 06/17/20 12:33 12:33 12:33 WBC 19.5 H RBC 5.18 H Hgb 15.5 H Lymph % (Auto) 3.8 L Lymph # (Auto) 0.7 L Seg Neuts % (Manual) 99.0 H Lymphocytes % (Manual) 1.0 L Seg Neutrophils # 18.2 H Seg Neutrophils # Man 19.3 H Lymphocytes # (Manual) 0.2 L Monocytes # (Manual) PT 16.5 H INR 1.33 H D-Dimer 1025.04 H ABG pH POC ABG pCO2 POC ABG pO2 ABG Oxyhemoglobin ABG Sodium ABG Glucose Carboxyhemoglobin Sodium 130 L Potassium 3.4 L Chloride 95.0 L Carbon Dioxide BUN 21 H Creatinine Glucose 137 H POC Glucose Lactic Acid Calcium 7.9 L Ferritin AST 84 H ALT 67 H Lactate Dehydrogenase 437 H Total Creatine Kinase 310 H C-Reactive Protein 27.90 H Albumin 2.9 L Arterial Blood Glucose Arterial Blood Ionized Calcium 06/17/20 06/17/20 06/17/20 12:33 12:33 14:48 WBC RBC Hgb Lymph % (Auto) Lymph # (Auto) Seg Neuts % (Manual) Lymphocytes % (Manual) Seg Neutrophils # Seg Neutrophils # Man Lymphocytes # (Manual) Monocytes # (Manual) PT INR D-Dimer ABG pH POC ABG pCO2 POC ABG pO2 ABG Oxyhemoglobin ABG Sodium ABG Glucose Carboxyhemoglobin Sodium Potassium Chloride Carbon Dioxide BUN Creatinine Glucose POC Glucose Lactic Acid 2.50 H* 2.20 H* Calcium Ferritin 2297.0 H AST ALT Lactate Dehydrogenase Total Creatine Kinase C-Reactive Protein Albumin Arterial Blood Glucose Arterial Blood Ionized Calcium 06/17/20 06/17/20 06/17/20 14:48 14:48 14:48 WBC RBC Hgb Lymph % (Auto) Lymph # (Auto) Seg Neuts % (Manual) Lymphocytes % (Manual) Seg Neutrophils # Seg Neutrophils # Man Lymphocytes # (Manual) Monocytes # (Manual) PT INR D-Dimer 939.89 H ABG pH POC ABG pCO2 POC ABG pO2 ABG Oxyhemoglobin ABG Sodium ABG Glucose Carboxyhemoglobin Sodium Potassium Chloride Carbon Dioxide BUN Creatinine Glucose 141 H POC Glucose Lactic Acid Calcium Ferritin > 2000.0 H AST ALT Lactate Dehydrogenase 503 H Total Creatine Kinase C-Reactive Protein 24.70 H Albumin Arterial Blood Glucose Arterial Blood Ionized Calcium 06/17/20 06/17/20 06/17/20 16:54 19:39 23:43 WBC RBC Hgb Lymph % (Auto) Lymph # (Auto) Seg Neuts % (Manual) Lymphocytes % (Manual) Seg Neutrophils # Seg Neutrophils # Man Lymphocytes # (Manual) Monocytes # (Manual) PT INR D-Dimer ABG pH 7.571 H POC ABG pCO2 24.3 L POC ABG pO2 41.6 L ABG Oxyhemoglobin 84.0 L ABG Sodium 131.0 L ABG Glucose 163 H Carboxyhemoglobin Sodium Potassium Chloride Carbon Dioxide BUN Creatinine Glucose POC Glucose 185 H Lactic Acid 2.10 H* Calcium Ferritin AST ALT Lactate Dehydrogenase Total Creatine Kinase C-Reactive Protein Albumin Arterial Blood Glucose 163 H Arterial Blood Ionized Calcium 4.4 L 06/18/20 06/18/20 06/18/20 00:17 00:23 03:55 WBC RBC Hgb Lymph % (Auto) Lymph # (Auto) Seg Neuts % (Manual) Lymphocytes % (Manual) Seg Neutrophils # Seg Neutrophils # Man Lymphocytes # (Manual) Monocytes # (Manual) PT INR D-Dimer ABG pH POC ABG pCO2 POC ABG pO2 56.5 L 48.3 L ABG Oxyhemoglobin 86.3 L 81.7 L ABG Sodium 132.9 L 131.0 L ABG Glucose 189 H 161 H Carboxyhemoglobin 0.4 L Sodium Potassium Chloride Carbon Dioxide BUN Creatinine Glucose POC Glucose Lactic Acid 3.80 H* Calcium Ferritin AST ALT Lactate Dehydrogenase Total Creatine Kinase C-Reactive Protein Albumin Arterial Blood Glucose 189 H 161 H Arterial Blood Ionized Calcium 4.3 L 4.2 L 06/18/20 06/18/20 06/18/20 05:39 05:39 05:39 WBC 26.2 H RBC Hgb Lymph % (Auto) Lymph # (Auto) Seg Neuts % (Manual) 90.0 H Lymphocytes % (Manual) 5.0 L Seg Neutrophils # Seg Neutrophils # Man 23.6 H Lymphocytes # (Manual) Monocytes # (Manual) 1.3 H PT INR D-Dimer ABG pH POC ABG pCO2 POC ABG pO2 ABG Oxyhemoglobin ABG Sodium ABG Glucose Carboxyhemoglobin Sodium 135 L Potassium Chloride 97.5 L Carbon Dioxide 21 L BUN 39 H Creatinine 1.7 H D Glucose 168 H POC Glucose Lactic Acid 3.40 H* Calcium 7.2 L Ferritin AST ALT Lactate Dehydrogenase Total Creatine Kinase C-Reactive Protein Albumin Arterial Blood Glucose Arterial Blood Ionized Calcium 06/18/20 07:24 WBC RBC Hgb Lymph % (Auto) Lymph # (Auto) Seg Neuts % (Manual) Lymphocytes % (Manual) Seg Neutrophils # Seg Neutrophils # Man Lymphocytes # (Manual) Monocytes # (Manual) PT INR D-Dimer ABG pH POC ABG pCO2 POC ABG pO2 ABG Oxyhemoglobin ABG Sodium ABG Glucose Carboxyhemoglobin Sodium Potassium Chloride Carbon Dioxide BUN Creatinine Glucose POC Glucose Lactic Acid 2.90 H* Calcium Ferritin AST ALT Lactate Dehydrogenase Total Creatine Kinase C-Reactive Protein Albumin Arterial Blood Glucose Arterial Blood Ionized Calcium - Diagnostic Findings Chest x-ray: image reviewed (Bilateral dense alveolar infiltrates) Assessment and Plan Acute hypoxemic respiratory failure due to COVID-19 Severe COVID infection Severe Sepsis Bilateral pneumonia Acute kidney injury (GIRISH) with acute tubular necrosis (ATN) -Continue to wean supplemental oxygen for O2 sats>90% -Monitor blood pressure closely while optimizing sedation,wean vasopressor support for MAP>65 -Critical care prone positioning -Agitation management, keep RASS -4 to allow for critical proning -VAP bundle addressed, aspiration precautions HOB >40 -continue lung protective strategies, permissive hypercapnic acceptable. -continue bronchodilators with pulmonary hygiene per RT - wean per pulmonary driven protocols otherwise - accuchecks with glycemic control per SSI (While critically ill target blood g lucose of 140-180 mg/dL; avoid hypoglycemia) - sedation prn for target RASS -1 to -2 - continue enteral nutritional support at goal rate as tolerated - Monitor liver function test ,avoid hepatotoxic agents - Avoid nephrotoxins, renally dose all medications, conservative fluid management - continue to avoid benzodiazepines, reduce the possibility of delirium - prn analgesia per CPOT score - Maintenance of sleep-wake cycle, avoid delirium -Stress ulcer prophylaxis, Famotidine -PT/OT/ROM exercises -Mobility protocols for pressure ulcer prevention -CXR, ABG in am, ABG 1 hour after critical proning is started -CBC, BMP as clinically indicated -Supportive transfusions to keep HgB >7g/dL -Monitor hemodynamics closely - continue other care per attending / other consultants COVID SPECIFIC INTERVENTIONS -continue steroids:on Solu-Medrol, change to Dexamethasone -continue with Remdesivir -monitor inflammatory markers - ferritin, D-dimer, CRP, LDH every 3 days per facility protocol -continue anticoagulation per System Protocol based on d-dimer -continue contact and airborne isolation CONDITION: CRITICAL PROGNOSIS: GUARDED CODE STATUS: FULL CODE The high probability of a clinically significant, sudden or life-threatening deterioration of the [respiratory, cardiovascular, hematologic & neurologic] system(s) required my full and direct attention, intervention and personal management. The aggregate critical care time was [75] minutes without overlap. Time includes spent on; [x] Data Review and interpretation [x] Patient assessment and monitoring of vital signs [x] Documentation [x] Medication orders and management He was evaluated in the context of the global COVID-19 pandemic, which necessitated consideration that the patient might be at risk for infection with the virus that causes COVID-19. Institutional protocols and algorithms that pertain to the evaluation of patients at risk for COVID-19 are in a state of rapid change based on information released by regulatory bodies including the CDC and federal and state organizations. These policies and algorithms were followed during the patient's care in the ICU Please note that these policies, procedures and recommendations changed on a rapid basis.
[2020-06-18] MEDS ORDERED: SODIUM CHLORIDE 0.9% 500 ML 500 ML IV PRN (09:38)
[2020-06-18] MEDS: VASOPRESSIN 20 UNIT in SODIUM CHLORIDE 0.9% 100 ML IV SCH ×2 (09:46→19:32)
[2020-06-18] MEDS: CHOLECALCIFEROL (VIT D3) 1000 UNIT (25 mcg) TAB PO SCH (09:47)
[2020-06-18] MEDS ORDERED: dexAMETHasone 4 MG/ML VIAL IV SCH (10:00)
[2020-06-18] MEDS ORDERED: CHOLECALCIFEROL (VIT D3) 400 UNIT TAB PO SCH (10:00)
[2020-06-18] MEDS ORDERED: SIMPLE SYRUP 15 ML FEEDTUBE PRN ×2 (10:43)
[2020-06-18] MEDS ORDERED: SODIUM BICARBONATE 325 MG TAB FEEDTUBE PRN (10:43)
[2020-06-18] MEDS ORDERED: LIPASE 10,500/PROTEASE 25,000/AMYLASE 43,750 (UNITS) DR CAP FEEDTUBE PRN (10:43)
[2020-06-18] MEDS: INSULIN REGULAR, HUMAN 100 UNITS/1 ML SUB-Q SCH ×2 (12:22→18:27)
[2020-06-18] MEDS: D5W/0.9% NACL 1,000 ML IV SCH (12:24)
[2020-06-18] MEDS ORDERED: AZITHROMYCIN/NS 500 MG/250 ML 500 MG/250 ML BAG IV SCH (13:00)
[2020-06-18] MEDS ORDERED: cefTRIAXone/NS 2 GM/100 ML 2 GM/100 ML BAG IV SCH (14:00)
--- NOTE | 2020-06-18 14:13 | Consultation ---
History of Present Illness - Reason for Consult acute renal failure - History of Present Illness Morbidly obese 59-year-old male with also past medical history of documented sleep apnea, presented to the emergency department with worsening shortness of breath. Diagnosed with COVID-19 pneumonia. With worsening respiratory distress he had to be eventually intubated. He is on 2 pressors at this time and is in the ICU upon examination. Newell catheter in place and he has remained nonoliguric. Noted to have an acute kidney injury overnight for which nephrology is being consulted. No documented history of renal injury in the past. Past History Past Medical History: other (See HPI) Past Surgical History: No surgical history, Other (Reviewed) Social history: . denies: smoking, alcohol abuse, prescription drug abuse Family history: diabetes, hypertension Medications and Allergies Allergies Allergy/AdvReac Type Severity Reaction Status Date / Time No Known Allergies Allergy Unverified 06/17/20 14:24 Active Meds: Active Medications Acetaminophen (Acetaminophen 325 Mg Tab) 650 mg PO Q4H PRN PRN Reason: Pain MILD(1-3)/Fever >100.5/ROBERTS Lipase/Protease/Amylase (Lipase 10,500/Protease 25,000/Amylase 43,750 (Units) Dr Kulkarni) 1 each FEEDTUBE PRN PRN PRN Reason: For Clogged Feeding Tube Ascorbic Acid (Ascorbic Acid 250 Mg Tab) 250 mg PO BID [facility] Last Admin: 06/18/20 10:16 Dose: 250 mg Documented by: Cholecalciferol (Cholecalciferol (Vit D3) 1000 Unit (25 Mcg) Tab) 1,000 unit PO DAILY [facility] Last Admin: 06/18/20 09:47 Dose: 1,000 unit Documented by: Dexamethasone (Dexamethasone 4 Mg/Ml Vial) 6 mg IV Q12HR [facility] Fentanyl (Fentanyl 100 Mcg/2 Ml Inj) 50 mcg IV Q10MIN PRN PRN Reason: ANALGESIA Last Admin: 06/18/20 01:22 Dose: 50 mcg Documented by: Heparin Sodium (Porcine) (Heparin 5,000 Unit/1 Ml Vial) 5,000 unit SUB-Q Q12HR [facility] Last Admin: 06/18/20 09:47 Dose: 5,000 unit Documented by: Hydromorphone HCl (Hydromorphone 1 Mg/1 Ml Inj) 0.25 mg IV Q4H PRN PRN Reason: Pain, Moderate (4-6) Hydrophilic Ointment (Lip Therapy Vaseline) 1 applic TP Q2HR PRN PRN Reason: Dry Lips Ceftriaxone Sodium (Rocephin/Ns 2 Gm/100 Ml) 2 gm in 100 mls @ 200 mls/hr IV Q24H [facility]; Protocol Last Admin: 06/18/20 13:26 Dose: 200 mls/hr Documented by: Azithromycin (Zithromax/Ns) 500 mg in 250 mls @ 250 mls/hr IV Q24H [facility]; Protocol Last Admin: 06/18/20 12:23 Dose: 250 mls/hr Documented by: REMDESIVIR 100 mg/ Sodium (Chloride) 250 mls @ 500 mls/hr IV Q24HR@2100 [facility] Stop: 06/21/20 21:29 Lorazepam 100 mg/ Sodium Chloride/ Miscellaneous Information 100 mls @ 1 mls/hr IV TITR [facility]; Protocol Last Titration: 06/18/20 10:31 Dose: 1 mg/hr, 1 mls/hr Documented by: Norepinephrine (Levophed Drip 4 Mg/Ns 250 Ml) 4 mg in 250 mls @ 7.5 mls/hr IV TITR [facility]; Protocol Last Admin: 06/18/20 13:26 Dose: 22 mcg/min, 82.5 mls/hr Documented by: Propofol (Diprivan 10 Mg/Ml) 1,000 mg in 100 mls @ 3.402 mls/hr IV TITR [facility]; Protocol Last Titration: 06/18/20 10:31 Dose: 10 mcg/kg/min, 6.804 mls/hr Documented by: Fentanyl Citrate (Fentanyl Drip Premix) 2,000 mcg in 100 mls @ 5.67 mls/hr IV TITR [facility]; Protocol Last Admin: 06/18/20 10:18 Dose: 3 mcg/kg/hr, 17.01 mls/hr Documented by: Vasopressin 20 unit/ Sodium (Chloride) 101 mls @ 9.09 mls/hr IV TITR [facility]; Protocol Last Admin: 06/18/20 09:46 Dose: 0.03 units/min, 9.09 mls/hr Documented by: Sodium Chloride (Nacl 0.9% 500 Ml) 500 mls @ 1 mls/hr IV DIRECT PRN PRN Reason: ARTERIAL LINE FLUSH Last Admin: 06/18/20 10:16 Dose: 1 mls/hr Documented by: Dextrose/Sodium Chloride (D5ns) 1,000 mls @ 75 mls/hr IV DIRECT [facility] Last Admin: 06/18/20 12:24 Dose: 75 mls/hr Documented by: Insulin Human Regular (Insulin Regular, Human 100 Units/1 Ml) 0 units SUB-Q Q6HR [facility]; Protocol Last Admin: 06/18/20 12:22 Dose: 3 units Documented by: Lorazepam (Lorazepam 2 Mg/Ml Vial) 1 mg IV BID PRN PRN Reason: Anxiety Last Admin: 06/17/20 17:10 Dose: 1 mg Documented by: Lorazepam (Lorazepam 2 Mg/Ml Vial) 2 mg IV Q10MIN PRN PRN Reason: Agitation Multi-Ingred Cream/Lotion/Oil/Oint (Mineral Oil/Petrolatum, White Ophth Oint 3.5 Gm) 1 applic OU Q4HR PRN PRN Reason: Dry Eye(s) Ondansetron HCl (Ondansetron 4 Mg/2 Ml Inj) 4 mg IV Q8H PRN PRN Reason: Nausea And Vomiting Simple Syrup (Simple Syrup 15 Ml) 15 ml FEEDTUBE PRN PRN PRN Reason: Hypoglycemia Simple Syrup (Simple Syrup 15 Ml) 30 ml FEEDTUBE PRN PRN PRN Reason: Hypoglycemia Sodium Bicarbonate (Sodium Bicarbonate 325 Mg Tab) 325 mg FEEDTUBE PRN PRN PRN Reason: For Clogged Feeding Tube Sodium Chloride (Sodium Chloride 0.9% 10 Ml Flush Syringe) 10 ml IV BID [facility] Last Admin: 06/18/20 09:47 Dose: 10 ml Documented by: Sodium Chloride (Sodium Chloride 0.9% 10 Ml Flush Syringe) 10 ml IV PRN PRN PRN Reason: LINE FLUSH Sodium Chloride (Sodium Chloride 0.9% 50 Ml Ivpb) 50 ml IV Q24HR@2100 [facility] Stop: 06/20/20 21:01 Last Admin: 06/18/20 07:29 Dose: Not Given Documented by: Zinc Sulfate (Zinc Sulfate 220 Mg Cap) 220 mg PO BID [facility] Last Admin: 06/18/20 09:47 Dose: 220 mg Documented by: Review of Systems ROS unobtainable: due to endotracheal tube Exam - Vital Signs Vital signs: Vital Signs Pulse Resp BP Pulse Ox 127 H 14 115/72 93 02/05/21 11:53 06/17/20 11:53 06/17/20 11:53 06/17/20 11:53 - General Appearance General appearance: obese, chronically ill, sedated on ventilator, intubated EENT: ATNC Neck: Present: neck supple Respiratory: Decreased Breath Sounds Heart: regular Gastrointestinal: Present: normal Integumentary: no rash Musculoskeletal: Present: deferred Results - Lab Results 06/18/20 05:39 06/18/20 05:39 Most recent lab results ABG pH 7.388 (7.320-7.450) 06/18/20 03:55 Calcium 7.2 mg/dL (8.4-10.2) L 06/18/20 05:39 Magnesium 2.20 mg/dL (1.7-2.3) 06/17/20 12:33 Assessment and Plan - Patient Problems (1) Acute renal failure Current Visit: Yes Status: Acute Plan to address problem: Likely prerenal in nature secondary to new onset of COVID-19 pneumonia with worsening sepsis and hypotension. Concern for acute tubular necrosis. He does however remain nonoliguric at this time and will continue to closely monitor his urine output. Please ensure that we avoid all nephrotoxins at this time. We will need to maintain mean arterial pressures above 65 mmHg. Titrate pressors accordingly. Renal ultrasound is pending at this time. We will also obtain urine electrolytes for further evaluation. Urinalysis without any acute abnormalities noted. (2) Pneumonia due to COVID-19 virus Current Visit: Yes Status: Acute Plan to address problem: Management per infectious disease recommendations. (3) Acute respiratory failure with hypoxia Current Visit: Yes Status: Acute Plan to address problem: Patient currently intubated at this time. Vent management per pulmonology recommendations. (4) Hypokalemia Current Visit: Yes Status: Acute Plan to address problem: Replete per protocol.
--- NOTE | 2020-06-18 15:06 | Progress Note ---
Assessment and Plan Acute metabolic encephalopathy -Due to severe sepsis and severe hypoxia -CT head ordered, currently intubated, continue supportive care with frequent neuro check Acute hypoxic respiratory failure -Due to severe COVID-19 pneumonia -Intubated following admission overnight as patient was unable to maintain oxygenation with 100% FiO2 with BiPAP -Critical care following, frequent nebulizer breathing treatment, empiric steroid Severe septic shock -Patient currently on 2 pressor support -Wean off as tolerated COVID-19 pneumonia -Follow inflammatory markers, ID consulted --Patient initially tested positive for COVID-19 virus about 2 weeks before this admission -CXR shows patchy parenchymal disease which represent pulmonary edema or aty pical pneumonia -Placed on dexamethasone for total 10 days and remdesivir total 5 days as long as renal function is optimal -hold off if CrCl<30 -Continue empiric antibiotics for now -Infectious disease consulted, will follow recommendation -Droplet/contact isolation -Continue SPO2 monitoring -Supplemental oxygen as needed -Pulmonary hygiene, Prone intermittently to improve oxygenation -Vitamin C, vitamin D, zinc -Anticoagulation per protocol -Lasix IV as needed to prevent pulmonary edema GIRISH, likely ATN -Follow BMP daily, avoid nephrotoxins -Consult nephrology, follow recommendations hypokalemia, repleted Supraventricular tachycardia/paroxysmal atrial fibrillation -likely due to severe sepsis -Patient currently on 2 pressor, will initiate IV amiodarone drip for rate control if needed -Consulted cardiology, echo ordered currently pending Elevated LFT, due to shock liver from severe sepsis and COVID-19 infection -Continue to trend DVT prophylaxis, per Covid protocol The high probability of a clinically significant, sudden or life threatening deterioration of the [cvs, NURSING SCHEDULER, 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 The aggregate critical care time was [62] minutes. This time is in addition to time spent performing reported procedures but includes the following: [x] Data Review and interpretation [x] Patient assessment and monitoring of vital signs [x] Documentation [x] Medication orders and management 06/18: Patient got intubated overnight. Patient was placed on BiPAP to maintain oxygenation with 100% FiO2 but apparently he found to take off his argueta which made his oxygen saturation go down at 60s/50s and patient was found altered mental status. Code met was called immediately. Patient was transferred to ICU and intubated, patient currently on 2 pressors, intubated with 100% FiO2, renal function noted to be decline, nephrology consulted. Discussed with [place] physician Dr. Thompson and requested call back on Saturday. Poor prognosis, continue to monitor with aggressive supportive care. Also c alled family/ to update clinical status. Subjective Date of service: 06/18/20 Interval history: Patient seen and examined Currently on 2 pressors, mechanically ventilated and sedated Noted vitals, lab results reviewed Discussed with RN at the bedside and critical care attending Objective - Exam Narrative Exam: Limited physical exam due to COVID-19 pandemic to minimize transmission of the disease and to preserve PPE. Vital reviewed and stable. GENERAL: well-developed obese white male lying on bed who is mechanically ventilated and sedated. HEENT: Normocephalic. Atraumatic. NECK: Supple. CHEST/LUNGS: On mechanical ventilation HEART/CARDIOVASCULAR: Tachycardic ABDOMEN: Visibly not distended SKIN: There is no rash NEURO: Patient is intubated MUSCULOSKELETAL: No joint effusion EXTRIMITY: no cyanosis or clubbing. PSYCH: Unable to assess. - Constitutional Vitals: Vital Signs - 12hr 06/18/20 06/18/20 06/18/20 03:15 03:30 03:45 Temperature Pulse Rate 94 H 106 H 92 H Pulse Rate [ Apical] Pulse Rate [ From Monitor] Respiratory 35 H 34 H 36 H Rate Blood Pressure 91/52 87/66 100/62 O2 Sat by Pulse 84 85 84 Oximetry 06/18/20 06/18/20 06/18/20 04:00 04:15 04:30 Temperature 98.3 F Pulse Rate 92 H 99 H 87 Pulse Rate [ Apical] Pulse Rate [ From Monitor] Respiratory 35 H 35 H 35 H Rate Blood Pressure 98/61 100/62 99/62 O2 Sat by Pulse 84 84 Oximetry 06/18/20 06/18/20 06/18/20 04:45 05:01 05:14 Temperature Pulse Rate 93 H 93 H 88 Pulse Rate [ Apical] Pulse Rate [ From Monitor] Respiratory 36 H 34 H Rate Blood Pressure 102/60 102/56 104/58 O2 Sat by Pulse 86 86 84 Oximetry 06/18/20 06/18/20 06/18/20 05:15 05:31 05:45 Temperature Pulse Rate 98 H 105 H 92 H Pulse Rate [ Apical] Pulse Rate [ From Monitor] Respiratory 34 H 38 H 35 H Rate Blood Pressure 104/58 145/101 106/67 O2 Sat by Pulse 85 87 Oximetry 06/18/20 06/18/20 06/18/20 06:00 06:15 06:30 Temperature Pulse Rate 96 H 97 H 94 H Pulse Rate [ Apical] Pulse Rate [ From Monitor] Respiratory 35 H 31 H 32 H Rate Blood Pressure 96/69 100/67 108/71 O2 Sat by Pulse 88 89 90 Oximetry 06/18/20 06/18/20 06/18/20 06:45 07:00 07:15 Temperature Pulse Rate 91 H 95 H 93 H Pulse Rate [ Apical] Pulse Rate [ From Monitor] Respiratory 31 H 33 H 31 H Rate Blood Pressure 105/69 117/61 98/69 O2 Sat by Pulse 90 89 89 Oximetry 06/18/20 06/18/20 06/18/20 07:30 07:45 08:00 Temperature 100.7 F H Pulse Rate 89 94 H 84 Pulse Rate [ 89 Apical] Pulse Rate [ 89 From Monitor] Respiratory 31 H 29 H 32 H Rate Blood Pressure 112/69 108/70 111/68 O2 Sat by Pulse 89 89 89 Oximetry 06/18/20 06/18/20 06/18/20 08:15 08:30 08:45 Temperature Pulse Rate 84 95 H 101 H Pulse Rate [ Apical] Pulse Rate [ From Monitor] Respiratory 35 H 33 H 31 H Rate Blood Pressure 109/73 112/70 105/67 O2 Sat by Pulse 89 87 88 Oximetry 06/18/20 06/18/20 06/18/20 08:55 09:01 09:15 Temperature Pulse Rate 88 97 H 97 H Pulse Rate [ Apical] Pulse Rate [ From Monitor] Respiratory 29 H 33 H Rate Blood Pressure 139/56 139/56 104/72 O2 Sat by Pulse 88 89 Oximetry 06/18/20 06/18/20 06/18/20 09:30 09:45 10:00 Temperature Pulse Rate 100 H 94 H 91 H Pulse Rate [ Apical] Pulse Rate [ From Monitor] Respiratory 31 H 30 H 29 H Rate Blood Pressure 107/63 102/66 100/63 O2 Sat by Pulse 88 89 89 Oximetry 06/18/20 06/18/20 06/18/20 10:15 10:30 10:45 Temperature Pulse Rate 91 H 94 H 90 Pulse Rate [ Apical] Pulse Rate [ From Monitor] Respiratory 25 H 24 25 H Rate Blood Pressure 95/65 102/55 102/66 O2 Sat by Pulse 88 85 86 Oximetry 06/18/20 06/18/20 06/18/20 11:00 11:15 11:29 Temperature Pulse Rate 96 H 99 H 88 Pulse Rate [ Apical] Pulse Rate [ From Monitor] Respiratory 23 22 Rate Blood Pressure 99/65 102/63 90/63 O2 Sat by Pulse 87 87 88 Oximetry 06/18/20 06/18/20 06/18/20 11:30 11:45 11:56 Temperature 99.2 F Pulse Rate 92 H 100 H Pulse Rate [ Apical] Pulse Rate [ From Monitor] Respiratory 21 27 H Rate Blood Pressure 90/63 102/63 O2 Sat by Pulse 87 81 L Oximetry 06/18/20 06/18/20 06/18/20 12:00 12:15 12:30 Temperature Pulse Rate 95 H 96 H 97 H Pulse Rate [ 92 H Apical] Pulse Rate [ 92 H From Monitor] Respiratory 23 22 19 Rate Blood Pressure 100/61 99/65 93/62 O2 Sat by Pulse 85 85 85 Oximetry 06/18/20 06/18/20 06/18/20 12:45 13:00 13:15 Temperature Pulse Rate 85 95 H 107 H Pulse Rate [ Apical] Pulse Rate [ From Monitor] Respiratory 23 22 Rate Blood Pressure 96/58 84/56 84/56 O2 Sat by Pulse 84 84 89 Oximetry 06/18/20 06/18/20 06/18/20 13:30 13:45 14:00 Temperature Pulse Rate 92 H 89 80 Pulse Rate [ Apical] Pulse Rate [ From Monitor] Respiratory 20 17 17 Rate Blood Pressure 94/54 94/54 94/53 O2 Sat by Pulse 95 97 96 Oximetry 06/18/20 06/18/20 14:15 14:30 Temperature Pulse Rate 87 86 Pulse Rate [ Apical] Pulse Rate [ From Monitor] Respiratory 17 13 Rate Blood Pressure 92/51 105/58 O2 Sat by Pulse 97 95 Oximetry - Labs CBC & Chem 7: 06/23/20 04:00 06/23/20 04:00 Labs: Abnormal lab results 06/17/20 06/17/20 06/17/20 Range/Units 12:33 14:48 14:48 WBC (4.5-11.0) K/mm3 Seg Neuts % (Manual) 99.0 H (40.0-70.0) % Lymphocytes % (Manual) 1.0 L (13.4-35.0) % Seg Neutrophils # Man 19.3 H (1.8-7.7) K/mm3 Lymphocytes # (Manual) 0.2 L (1.2-5.4) K/mm3 Monocytes # (Manual) (0.0-0.8) K/mm3 D-Dimer 939.89 H (0-234) ng/mlDDU ABG pH (7.320-7.450) POC ABG pCO2 (32.0-48.0) mmHg POC ABG pO2 (83-108) mmHg ABG Oxyhemoglobin (94-98) ABG Sodium (136.0-145.0) mmol/L ABG Glucose (65-95) mg/dL Carboxyhemoglobin (0.5-1.5) Sodium (137-145) mmol/L Chloride (98-107) mmol/L Carbon Dioxide (22-30) mmol/L BUN (9-20) mg/dL Creatinine (0.8-1.3) mg/dL Glucose (75-100) mg/dL POC Glucose (70-105) mg/dL Lactic Acid 2.20 H* (0.7-2.0) mmol/L Calcium (8.4-10.2) mg/dL Ferritin (30.0-300.0) ng/mL Lactate Dehydrogenase (91-180) units/L C-Reactive Protein (0.00-1.30) mg/dL Arterial Blood Glucose (65-95) mg/dL Arterial Blood Ionized Calcium (4.6-5.3) mg/dL Coronavirus (PCR) (Negative) 06/17/20 06/17/20 06/17/20 Range/Units 14:48 14:48 16:54 WBC (4.5-11.0) K/mm3 Seg Neuts % (Manual) (40.0-70.0) % Lymphocytes % (Manual) (13.4-35.0) % Seg Neutrophils # Man (1.8-7.7) K/mm3 Lymphocytes # (Manual) (1.2-5.4) K/mm3 Monocytes # (Manual) (0.0-0.8) K/mm3 D-Dimer (0-234) ng/mlDDU ABG pH (7.320-7.450) POC ABG pCO2 (32.0-48.0) mmHg POC ABG pO2 (83-108) mmHg ABG Oxyhemoglobin (94-98) ABG Sodium (136.0-145.0) mmol/L ABG Glucose (65-95) mg/dL Carboxyhemoglobin (0.5-1.5) Sodium (137-145) mmol/L Chloride (98-107) mmol/L Carbon Dioxide (22-30) mmol/L BUN (9-20) mg/dL Creatinine (0.8-1.3) mg/dL Glucose 141 H (75-100) mg/dL POC Glucose (70-105) mg/dL Lactic Acid 2.10 H* (0.7-2.0) mmol/L Calcium (8.4-10.2) mg/dL Ferritin > 2000.0 H (30.0-300.0) ng/mL Lactate Dehydrogenase 503 H (91-180) units/L C-Reactive Protein 24.70 H (0.00-1.30) mg/dL Arterial Blood Glucose (65-95) mg/dL Arterial Blood Ionized Calcium (4.6-5.3) mg/dL Coronavirus (PCR) (Negative) 06/17/20 06/17/20 06/18/20 Range/Units 19:39 23:43 00:17 WBC (4.5-11.0) K/mm3 Seg Neuts % (Manual) (40.0-70.0) % Lymphocytes % (Manual) (13.4-35.0) % Seg Neutrophils # Man (1.8-7.7) K/mm3 Lymphocytes # (Manual) (1.2-5.4) K/mm3 Monocytes # (Manual) (0.0-0.8) K/mm3 D-Dimer (0-234) ng/mlDDU ABG pH 7.571 H (7.320-7.450) POC ABG pCO2 24.3 L (32.0-48.0) mmHg POC ABG pO2 41.6 L (83-108) mmHg ABG Oxyhemoglobin 84.0 L (94-98) ABG Sodium 131.0 L (136.0-145.0) mmol/L ABG Glucose 163 H (65-95) mg/dL Carboxyhemoglobin (0.5-1.5) Sodium (137-145) mmol/L Chloride (98-107) mmol/L Carbon Dioxide (22-30) mmol/L BUN (9-20) mg/dL Creatinine (0.8-1.3) mg/dL Glucose (75-100) mg/dL POC Glucose 185 H (70-105) mg/dL Lactic Acid 3.80 H* (0.7-2.0) mmol/L Calcium (8.4-10.2) mg/dL Ferritin (30.0-300.0) ng/mL Lactate Dehydrogenase (91-180) units/L C-Reactive Protein (0.00-1.30) mg/dL Arterial Blood Glucose 163 H (65-95) mg/dL Arterial Blood Ionized Calcium 4.4 L (4.6-5.3) mg/dL Coronavirus (PCR) (Negative) 06/18/20 06/18/20 06/18/20 Range/Units 00:23 03:55 05:39 WBC 26.2 H (4.5-11.0) K/mm3 Seg Neuts % (Manual) 90.0 H (40.0-70.0) % Lymphocytes % (Manual) 5.0 L (13.4-35.0) % Seg Neutrophils # Man 23.6 H (1.8-7.7) K/mm3 Lymphocytes # (Manual) (1.2-5.4) K/mm3 Monocytes # (Manual) 1.3 H (0.0-0.8) K/mm3 D-Dimer (0-234) ng/mlDDU ABG pH (7.320-7.450) POC ABG pCO2 (32.0-48.0) mmHg POC ABG pO2 56.5 L 48.3 L (83-108) mmHg ABG Oxyhemoglobin 86.3 L 81.7 L (94-98) ABG Sodium 132.9 L 131.0 L (136.0-145.0) mmol/L ABG Glucose 189 H 161 H (65-95) mg/dL Carboxyhemoglobin 0.4 L (0.5-1.5) Sodium (137-145) mmol/L Chloride (98-107) mmol/L Carbon Dioxide (22-30) mmol/L BUN (9-20) mg/dL Creatinine (0.8-1.3) mg/dL Glucose (75-100) mg/dL POC Glucose (70-105) mg/dL Lactic Acid (0.7-2.0) mmol/L Calcium (8.4-10.2) mg/dL Ferritin (30.0-300.0) ng/mL Lactate Dehydrogenase (91-180) units/L C-Reactive Protein (0.00-1.30) mg/dL Arterial Blood Glucose 189 H 161 H (65-95) mg/dL Arterial Blood Ionized Calcium 4.3 L 4.2 L (4.6-5.3) mg/dL Coronavirus (PCR) (Negative) 06/18/20 06/18/20 06/18/20 Range/Units 05:39 05:39 07:24 WBC (4.5-11.0) K/mm3 Seg Neuts % (Manual) (40.0-70.0) % Lymphocytes % (Manual) (13.4-35.0) % Seg Neutrophils # Man (1.8-7.7) K/mm3 Lymphocytes # (Manual) (1.2-5.4) K/mm3 Monocytes # (Manual) (0.0-0.8) K/mm3 D-Dimer (0-234) ng/mlDDU ABG pH (7.320-7.450) POC ABG pCO2 (32.0-48.0) mmHg POC ABG pO2 (83-108) mmHg ABG Oxyhemoglobin (94-98) ABG Sodium (136.0-145.0) mmol/L ABG Glucose (65-95) mg/dL Carboxyhemoglobin (0.5-1.5) Sodium 135 L (137-145) mmol/L Chloride 97.5 L (98-107) mmol/L Carbon Dioxide 21 L (22-30) mmol/L BUN 39 H (9-20) mg/dL Creatinine 1.7 H D (0.8-1.3) mg/dL Glucose 168 H (75-100) mg/dL POC Glucose (70-105) mg/dL Lactic Acid 3.40 H* 2.90 H* (0.7-2.0) mmol/L Calcium 7.2 L (8.4-10.2) mg/dL Ferritin (30.0-300.0) ng/mL Lactate Dehydrogenase (91-180) units/L C-Reactive Protein (0.00-1.30) mg/dL Arterial Blood Glucose (65-95) mg/dL Arterial Blood Ionized Calcium (4.6-5.3) mg/dL Coronavirus (PCR) (Negative) 06/18/20 06/18/20 06/18/20 Range/Units 09:00 10:10 14:43 WBC (4.5-11.0) K/mm3 Seg Neuts % (Manual) (40.0-70.0) % Lymphocytes % (Manual) (13.4-35.0) % Seg Neutrophils # Man (1.8-7.7) K/mm3 Lymphocytes # (Manual) (1.2-5.4) K/mm3 Monocytes # (Manual) (0.0-0.8) K/mm3 D-Dimer (0-234) ng/mlDDU ABG pH 7.303 L (7.320-7.450) POC ABG pCO2 (32.0-48.0) mmHg POC ABG pO2 82.3 L (83-108) mmHg ABG Oxyhemoglobin (94-98) ABG Sodium 135.3 L (136.0-145.0) mmol/L ABG Glucose 215 H (65-95) mg/dL Carboxyhemoglobin 0.3 L (0.5-1.5) Sodium (137-145) mmol/L Chloride (98-107) mmol/L Carbon Dioxide (22-30) mmol/L BUN (9-20) mg/dL Creatinine (0.8-1.3) mg/dL Glucose (75-100) mg/dL POC Glucose (70-105) mg/dL Lactic Acid 3.20 H* (0.7-2.0) mmol/L Calcium (8.4-10.2) mg/dL Ferritin (30.0-300.0) ng/mL Lactate Dehydrogenase (91-180) units/L C-Reactive Protein (0.00-1.30) mg/dL Arterial Blood Glucose 215 H (65-95) mg/dL Arterial Blood Ionized Calcium 4.2 L (4.6-5.3) mg/dL Coronavirus (PCR) Positive A (Negative) HEART Score - HEART Score Troponin: Troponin T < 0.010 ng/mL (0.00-0.029) 06/17/20 12:33
[2020-06-18 15:19] LABS: Chloride, Urine 31.1 mmolL (110-250); Creatinine,Urine 192.4 mg/dL (0.1-20.0)
--- NOTE | 2020-06-18 16:41 | Consultation ---
History of Present Illness Consult date: 06/18/20 Requesting physician: FLAVIA GALINDO Consult reason: other (SVT) History of present illness: Pt is a 59-year-old male, previously unknown to our practice, who presented in respiratory distress requiring BiPAP. Pt's respiratory status declined shortly after arrival, and he was subsequently intubated. He was recently found to be COVID-positive and is now being treated for PNA in the setting of COVID-19 infection. Cardiology has been consulted for the eval and mgmt of SVT. Tele reviewed - AF 90-110s. Of note, pt is currently requiring 2 pressors. Past History Social history: Medications and Allergies Allergies Allergy/AdvReac Type Severity Reaction Status Date / Time No Known Allergies Allergy Unverified 06/17/20 14:24 Home Medications Medication Instructions Recorded Confirmed Last Taken Type Losartan/Hydrochlorothiazide 1 each PO QDAY 06/19/20 06/19/20 Unknown History [Losartan-Hctz 100-25 mg Tab] amLODIPine [Norvasc] 5 mg PO DAILY 06/19/20 06/19/20 Unknown History Active Meds: Active Medications Acetaminophen (Acetaminophen 325 Mg Tab) 650 mg PO Q4H PRN PRN Reason: Pain MILD(1-3)/Fever >100.5/ROBERTS Lipase/Protease/Amylase (Lipase 10,500/Protease 25,000/Amylase 43,750 (Units) Dr Kulkarni) 1 each FEEDTUBE PRN PRN PRN Reason: For Clogged Feeding Tube Ascorbic Acid (Ascorbic Acid 250 Mg Tab) 250 mg PO BID [facility] Last Admin: 06/18/20 10:16 Dose: 250 mg Documented by: Cholecalciferol (Cholecalciferol (Vit D3) 1000 Unit (25 Mcg) Tab) 1,000 unit PO DAILY [facility] Last Admin: 06/18/20 09:47 Dose: 1,000 unit Documented by: Dexamethasone (Dexamethasone 4 Mg/Ml Vial) 6 mg IV Q12HR [facility] Fentanyl (Fentanyl 100 Mcg/2 Ml Inj) 50 mcg IV Q10MIN PRN PRN Reason: ANALGESIA Last Admin: 06/18/20 01:22 Dose: 50 mcg Documented by: Heparin Sodium (Porcine) (Heparin 5,000 Unit/1 Ml Vial) 5,000 unit SUB-Q Q12HR [facility] Last Admin: 06/18/20 09:47 Dose: 5,000 unit Documented by: Hydromorphone HCl (Hydromorphone 1 Mg/1 Ml Inj) 0.25 mg IV Q4H PRN PRN Reason: Pain, Moderate (4-6) Hydrophilic Ointment (Lip Therapy Vaseline) 1 applic TP Q2HR PRN PRN Reason: Dry Lips Ceftriaxone Sodium (Rocephin/Ns 2 Gm/100 Ml) 2 gm in 100 mls @ 200 mls/hr IV Q24H [facility]; Protocol Last Admin: 06/18/20 13:26 Dose: 200 mls/hr Documented by: Azithromycin (Zithromax/Ns) 500 mg in 250 mls @ 250 mls/hr IV Q24H [facility]; Protocol Last Admin: 06/18/20 12:23 Dose: 250 mls/hr Documented by: REMDESIVIR 100 mg/ Sodium (Chloride) 250 mls @ 500 mls/hr IV Q24HR@2100 [facility] Stop: 06/21/20 21:29 Lorazepam 100 mg/ Sodium Chloride/ Miscellaneous Information 100 mls @ 1 mls/hr IV TITR [facility]; Protocol Last Titration: 06/18/20 12:30 Dose: 0 mg/hr, 0 mls/hr Documented by: Norepinephrine (Levophed Drip 4 Mg/Ns 250 Ml) 4 mg in 250 mls @ 7.5 mls/hr IV TITR [facility]; Protocol Last Admin: 06/18/20 16:16 Dose: 20 mcg/min, 75 mls/hr Documented by: Propofol (Diprivan 10 Mg/Ml) 1,000 mg in 100 mls @ 3.402 mls/hr IV TITR [facility]; Protocol Last Titration: 06/18/20 10:31 Dose: 10 mcg/kg/min, 6.804 mls/hr Documented by: Fentanyl Citrate (Fentanyl Drip Premix) 2,000 mcg in 100 mls @ 5.67 mls/hr IV TITR [facility]; Protocol Last Admin: 06/18/20 14:53 Dose: 4 mcg/kg/hr, 22.68 mls/hr Documented by: Vasopressin 20 unit/ Sodium (Chloride) 101 mls @ 9.09 mls/hr IV TITR [facility]; Protocol Last Admin: 06/18/20 09:46 Dose: 0.03 units/min, 9.09 mls/hr Documented by: Sodium Chloride (Nacl 0.9% 500 Ml) 500 mls @ 1 mls/hr IV DIRECT PRN PRN Reason: ARTERIAL LINE FLUSH Last Admin: 06/18/20 10:16 Dose: 1 mls/hr Documented by: Dextrose/Sodium Chloride (D5ns) 1,000 mls @ 75 mls/hr IV DIRECT [facility] Last Admin: 06/18/20 12:24 Dose: 75 mls/hr Documented by: Insulin Human Regular (Insulin Regular, Human 100 Units/1 Ml) 0 units SUB-Q Q6HR [facility]; Protocol Last Admin: 06/18/20 12:22 Dose: 3 units Documented by: Lorazepam (Lorazepam 2 Mg/Ml Vial) 1 mg IV BID PRN PRN Reason: Anxiety Last Admin: 06/17/20 17:10 Dose: 1 mg Documented by: Lorazepam (Lorazepam 2 Mg/Ml Vial) 2 mg IV Q10MIN PRN PRN Reason: Agitation Multi-Ingred Cream/Lotion/Oil/Oint (Mineral Oil/Petrolatum, White Ophth Oint 3.5 Gm) 1 applic OU Q4HR PRN PRN Reason: Dry Eye(s) Ondansetron HCl (Ondansetron 4 Mg/2 Ml Inj) 4 mg IV Q8H PRN PRN Reason: Nausea And Vomiting Simple Syrup (Simple Syrup 15 Ml) 15 ml FEEDTUBE PRN PRN PRN Reason: Hypoglycemia Simple Syrup (Simple Syrup 15 Ml) 30 ml FEEDTUBE PRN PRN PRN Reason: Hypoglycemia Sodium Bicarbonate (Sodium Bicarbonate 325 Mg Tab) 325 mg FEEDTUBE PRN PRN PRN Reason: For Clogged Feeding Tube Sodium Chloride (Sodium Chloride 0.9% 10 Ml Flush Syringe) 10 ml IV BID [facility] Last Admin: 06/18/20 09:47 Dose: 10 ml Documented by: Sodium Chloride (Sodium Chloride 0.9% 10 Ml Flush Syringe) 10 ml IV PRN PRN PRN Reason: LINE FLUSH Sodium Chloride (Sodium Chloride 0.9% 50 Ml Ivpb) 50 ml IV Q24HR@2100 [facility] Stop: 06/20/20 21:01 Last Admin: 06/18/20 07:29 Dose: Not Given Documented by: Zinc Sulfate (Zinc Sulfate 220 Mg Cap) 220 mg PO BID [facility] Last Admin: 02/06/21 09:47 Dose: 220 mg Documented by: Review of Systems ROS unobtainable: due to endotracheal tube Physical Examination Last Vital Signs Temp 98.2 F 06/18/20 16:00 Pulse 105 H 06/18/20 19:16 Resp 12 06/18/20 19:16 BP 111/62 06/18/20 19:16 Pulse Ox 96 06/18/20 19:16 Narrative exam: Exam deferred due to COVID-19 infection (exposure reduction). Recommendations based on chart review and provider discussions. Results 06/19/20 04:00 06/19/20 04:00 CBC 06/18/20 Range/Units 05:39 WBC 26.2 H (4.5-11.0) K/mm3 RBC 4.75 (3.65-5.03) M/mm3 Hgb 14.1 (11.8-15.2) gm/dl Hct 41.7 (35.5-45.6) % Plt Count 216 (140-440) K/mm3 Comprehensive Metabolic Panel 06/18/20 Range/Units 05:39 Sodium 135 L (137-145) mmol/L Potassium 4.2 D (3.6-5.0) mmol/L Chloride 97.5 L (98-107) mmol/L Carbon Dioxide 21 L (22-30) mmol/L BUN 39 H (9-20) mg/dL Creatinine 1.7 H D (0.8-1.3) mg/dL Glucose 168 H (75-100) mg/dL Calcium 7.2 L (8.4-10.2) mg/dL EKG interpretations - Telemetry EKG Rhythm: Atrial Fibrillation - EKG Supraventricular dysrhythmia: atrial fibrillation Assessment and Plan Obtain ECG. May initiate IV Amio gtt for rate control if needed. Wean pressors as tolerated. PRN repletion of electrolytes. Continue SQ heparin. Guarded prognosis. Case reviewed in conjunction with Dr. Chavis, who agrees with the assessment and plan of care. - Patient Problems (1) Acute respiratory failure with hypoxia Current Visit: Yes Status: Acute (2) Pneumonia due to COVID-19 virus Current Visit: Yes Status: Acute (3) Sepsis Current Visit: Yes Status: Acute Qualifiers: Severe sepsis acute organ dysfunction type: acute respiratory failure Severe sepsis shock status: with septic shock (4) PAF (paroxysmal atrial fibrillation) Current Visit: Yes Status: Acute (5) GIRISH (acute kidney injury) Current Visit: Yes Status: Acute (6) Elevated LFTs Current Visit: Yes Status: Acute
[2020-06-18] MEDS: dexAMETHasone 4 MG/ML VIAL IV SCH (23:04)
[2020-06-18] MEDS: REMDESIVIR 100 MG in SODIUM CHLORIDE 0.9% 250ML 250 ML IV SCH (23:04)
[2020-06-19] MEDS: fentaNYL DRIP Premix 2,000 MCG/100 ML BAG IV SCH ×6 (01:40→23:12)
[2020-06-19] MEDS: NORepinephrine/NS 4 MG-250 ML 4 MG/250 ML BAG IV SCH ×7 (01:40→23:43)
--- NOTE | 2020-06-19 03:35 | XRay Report ---
CHEST 1 VIEW 06/19/2020 2:15 AM INDICATION / CLINICAL INFORMATION: follow up respiratory failure. COMPARISON: 06/17/20 FINDINGS: SUPPORT DEVICES: Endotracheal tube is unchanged. Esophagogastric tube has been placed below the diaph ragm into the stomach. HEART / MEDIASTINUM: No significant abnormality. LUNGS / PLEURA: Slight improvement in bilateral pulmonary opacities. No pneumothorax. ADDITIONAL FINDINGS: No significant additional findings. IMPRESSION: 1. Interval improvement. Signer Name: Katie Pringle MD Signed: 06/19/2020 3:31 AM Workstation Name: [id number]
[2020-06-19] MEDS: VASOPRESSIN 20 UNIT in SODIUM CHLORIDE 0.9% 100 ML IV SCH ×2 (05:01→16:09)
[2020-06-19] MEDS: D5W/0.9% NACL 1,000 ML IV SCH ×2 (05:13→20:26)
[2020-06-19 05:48] LABS: Albumin 2.5 g/dL (3.9-5); Hematocrit 40.3 % (35.5-45.6); Hemoglobin 13.3 gm/dl (11.8-15.2); Mean Corpuscular HGB Conc 33 % (32-34); Mean Corpuscular Volume 90 fl (84-94); Platelet Count 205 K/mm3 (140-440); Red Cell Distribution Width 14.3 % (13.2-15.2)
[2020-06-19] MEDS: INSULIN REGULAR, HUMAN 100 UNITS/1 ML SUB-Q SCH ×4 (06:22→17:17)
[2020-06-19] MEDS: ACETAMINOPHEN 325 MG TAB PO PRN (06:42)
[2020-06-19 07:12] LABS: Anisocytosis 1+; Monocytes % (Manual) 1.5 % (0.0-7.3); Platelet Estimate Consistent w Auto; Total Cells Counted 200
[2020-06-19] MEDS: SODIUM CHLORIDE 0.9% 50 ML IVPB IV SCH ×2 (07:15→20:39)
[2020-06-19] MEDS ORDERED: SODIUM CHLORIDE 0.9% 1000 ML 1,000 ML ONE (08:41)
--- NOTE | 2020-06-19 09:47 | Progress Note ---
Assessment and Plan Acute hypoxemic respiratory failure due to COVID-19 Severe COVID infection Severe Sepsis with shock Bilateral pneumonia Acute kidney injury (GIRISH) with acute tubular necrosis (ATN) Elevated liver enzymes Obesity NSaline 250cc bolus, Renal consulted may need [employer] Critical care prone positioning for 5 days Day 2/5 Get lower extremity dopplers r/o DVT Amiodarone infusion for afib RVR Antibiotics per ID, on going fevers -Continue to wean supplemental oxygen for O2 sats>90% -Monitor blood pressure closely while optimizing sedation,wean vasopressor support for MAP>65 -Agitation management, keep RASS -4 to allow for critical proning -VAP bundle addressed, aspiration precautions HOB >40 -continue lung protective strategies, permissive hypercapnic acceptable. -continue bronchodilators with pulmonary hygiene per RT - wean per pulmonary driven protocols otherwise - accuchecks with glycemic control per SSI (While critically ill target blood glucose of 140-180 mg/dL; avoid hypoglycemia) - sedation prn for target RASS -1 to -2 - continue enteral nutritional support at goal rate as tolerated - Monitor liver function test ,avoid hepatotoxic agents - Avoid nephrotoxins, renally dose all medications, conservative fluid curt gement - continue to avoid benzodiazepines, reduce the possibility of delirium, - prn analgesia per CPOT score - Maintenance of sleep-wake cycle, avoid delirium -Stress ulcer prophylaxis, Famotidine -PT/OT/ROM exercises -Mobility protocols for pressure ulcer prevention -CXR, ABG in am -CBC, CMP in am -Supportive transfusions to keep HgB >7g/dL -Monitor hemodynamics closely - continue other care per attending / other consultants COVID SPECIFIC INTERVENTIONS -continue steroids: Dexamethasone -continue with Remdesivir -monitor inflammatory markers - ferritin, D-dimer, CRP, LDH every 3 days per facility protocol -continue anticoagulation per System Protocol based on d-dimer -continue contact and airborne isolation CONDITION: CRITICAL PROGNOSIS: GUARDED CODE STATUS: FULL CODE The high probability of a clinically significant, sudden or life-threatening deterioration of the [respiratory, cardiovascular, hematologic & neurologic] system(s) required my full and direct attention, intervention and personal management. The aggregate critical care time was [35] minutes without overlap. Time includes spent on; [x] Data Review and interpretation [x] Patient assessment and monitoring of vital signs [x] Documentation [x] Medication orders and management He was evaluated and treated in the context of the global COVID-19 pandemic, Institutional protocols and algorithms that pertain to the treatment of patients with COVID-19 are in a state of rapid change based on information released by regulatory bodies including the CDC and federal and state organizations. These policies and algorithms were followed during the patient's care in the ICU Please note that these policies, procedures and recommendations continue to change. Called the Sherri Graham, [phone], to update her but unable to get a hold of her. Mail box does not allow for messages Subjective Date of service: 06/19/20 Interval history: Follow up for severe sepsis with septic shock; COVID-ARDS; acute hypoxemic resp failure on MVS: GIRISH/ATN Seen and examined. Vitals, labs, medications, chart reviewed. Discussed with nursing and respiratory staff. Remains critically ill on MVS, tolerated 12 hours of proning yesterday with improvement on P/F ratio Febrile , remains on Norepinephrine and vasopressin. weaning down Norepinephrine requirements. PEEP +14/FIO2 100%, lungs remain compliant with Plat<35. Afib with RVR On Propofol and Fentanyl Objective Vital Signs - 12hr 06/18/20 06/18/20 06/18/20 22:00 22:16 22:30 Temperature Pulse Rate 135 H 127 H 143 H Pulse Rate [ Apical] Pulse Rate [ From Monitor] Respiratory 12 13 11 L Rate Blood Pressure 106/58 104/60 103/59 O2 Sat by Pulse 96 97 97 Oximetry 06/18/20 06/18/20 06/18/20 22:46 23:00 23:16 Temperature Pulse Rate 159 H 133 H 112 H Pulse Rate [ Apical] Pulse Rate [ From Monitor] Respiratory 14 13 14 Rate Blood Pressure 100/64 106/64 106/63 O2 Sat by Pulse 97 97 96 Oximetry 06/18/20 06/18/20 06/18/20 23:18 23:30 23:46 Temperature Pulse Rate 116 H 121 H 126 H Pulse Rate [ Apical] Pulse Rate [ From Monitor] Respiratory 12 10 L 13 Rate Blood Pressure 106/63 103/59 95/60 O2 Sat by Pulse 96 95 95 Oximetry 06/19/20 06/19/20 06/19/20 00:00 00:16 00:26 Temperature 100.2 F H Pulse Rate 133 H 133 H 132 H Pulse Rate [ 83 Apical] Pulse Rate [ 83 From Monitor] Respiratory 20 15 Rate Blood Pressure 96/60 87/60 97/58 O2 Sat by Pulse 97 97 97 Oximetry 06/19/20 06/19/20 06/19/20 00:30 00:46 01:00 Temperature Pulse Rate 117 H 121 H 126 H Pulse Rate [ Apical] Pulse Rate [ From Monitor] Respiratory 12 22 18 Rate Blood Pressure 101/59 102/60 104/56 O2 Sat by Pulse 97 97 97 Oximetry 06/19/20 06/19/20 06/19/20 01:15 01:30 01:46 Temperature Pulse Rate 140 H 128 H Pulse Rate [ Apical] Pulse Rate [ From Monitor] Respiratory 11 L 12 Rate Blood Pressure 101/56 105/63 105/54 O2 Sat by Pulse 97 95 96 Oximetry 06/19/20 06/19/20 06/19/20 02:00 02:16 02:30 Temperature Pulse Rate 111 H 123 H 114 H Pulse Rate [ Apical] Pulse Rate [ From Monitor] Respiratory 10 L 10 L 12 Rate Blood Pressure 101/56 97/63 101/63 O2 Sat by Pulse 95 93 93 Oximetry 06/19/20 06/19/20 06/19/20 02:46 03:00 03:16 Temperature Pulse Rate 131 H 114 H 108 H Pulse Rate [ Apical] Pulse Rate [ From Monitor] Respiratory 10 L 10 L 10 L Rate Blood Pressure 97/57 102/58 99/60 O2 Sat by Pulse 93 91 90 Oximetry 06/19/20 06/19/20 06/19/20 03:30 03:46 03:52 Temperature Pulse Rate 121 H 140 H 108 H Pulse Rate [ Apical] Pulse Rate [ From Monitor] Respiratory 13 12 Rate Blood Pressure 104/55 98/62 95/57 O2 Sat by Pulse 90 91 91 Oximetry 06/19/20 06/19/20 06/19/20 04:00 04:16 04:30 Temperature 101.8 F H Pulse Rate 108 H 102 H 128 H Pulse Rate [ 83 Apical] Pulse Rate [ 83 From Monitor] Respiratory 9 L 10 L 11 L Rate Blood Pressure 102/56 103/58 98/57 O2 Sat by Pulse 89 91 90 Oximetry 06/19/20 06/19/20 06/19/20 04:46 05:00 05:16 Temperature Pulse Rate 140 H 122 H 117 H Pulse Rate [ Apical] Pulse Rate [ From Monitor] Respiratory 13 10 L 11 L Rate Blood Pressure 103/55 99/59 109/59 O2 Sat by Pulse 90 90 89 Oximetry 06/19/20 06/19/20 06/19/20 05:30 05:46 06:00 Temperature Pulse Rate 126 H 110 H 112 H Pulse Rate [ Apical] Pulse Rate [ From Monitor] Respiratory 12 11 L 11 L Rate Blood Pressure 106/58 105/61 104/53 O2 Sat by Pulse 89 91 91 Oximetry 06/19/20 06/19/20 06/19/20 06:16 06:30 06:46 Temperature Pulse Rate 123 H 120 H 111 H Pulse Rate [ Apical] Pulse Rate [ From Monitor] Respiratory 10 L 13 11 L Rate Blood Pressure 103/61 107/61 99/58 O2 Sat by Pulse 90 89 90 Oximetry 06/19/20 06/19/20 06/19/20 07:00 07:16 07:30 Temperature Pulse Rate 123 H 126 H 115 H Pulse Rate [ Apical] Pulse Rate [ From Monitor] Respiratory 16 14 12 Rate Blood Pressure 94/60 94/64 106/56 O2 Sat by Pulse 87 89 89 Oximetry 06/19/20 06/19/20 06/19/20 07:40 07:46 08:00 Temperature 102.4 F H Pulse Rate 130 H 122 H 115 H Pulse Rate [ Apical] Pulse Rate [ 130 H From Monitor] Respiratory 10 L 13 Rate Blood Pressure 102/62 98/62 O2 Sat by Pulse 89 89 Oximetry 06/19/20 08:30 Temperature Pulse Rate 124 H Pulse Rate [ Apical] Pulse Rate [ From Monitor] Respiratory Rate Blood Pressure 105/59 O2 Sat by Pulse 90 Oximetry Constitutional: other (morbidly obese, atraumatic, normocephalic, mild resp distress, orally intuabted) Eyes: non-icteric Neck: supple, no lymphadenopathy, other (Large , short neck) Effort: mildly labored Ascultation: Bilateral: diminished breath sounds, rhonchi Cardiovascular: irregular rhythm, other (S1,S2) Gastrointestinal: normoactive bowel sounds, non-distended Integumentary: rash, other (Femoral CVC, Newell catheter) Extremities: no edema, pulses normal Neurologic: other (unable to assess, sedated) Psychiatric: other (unable to assess, sedated) CBC and BMP: 06/21/20 04:00 06/21/20 05:00 ABG, PT/INR, D-dimer: ABG ABG pH 7.265 (7.320-7.450) L 06/19/20 04:00 POC ABG pCO2 51.8 mmHg (32.0-48.0) H 06/19/20 04:00 POC ABG pO2 65.1 mmHg (83-108) L 06/19/20 04:00 POC ABG HCO3 23.0 06/19/20 04:00 PT/INR, D-dimer PT 16.5 Sec. (12.2-14.9) H 06/17/20 12:33 INR 1.33 (0.87-1.13) H 06/17/20 12:33 D-Dimer 939.89 ng/mlDDU (0-234) H 06/17/20 14:48 Abnormal lab findings: Abnormal Labs 06/17/20 06/17/20 06/17/20 12:33 12:33 12:33 WBC 19.5 H RBC 5.18 H Hgb 15.5 H Lymph % (Auto) 3.8 L Lymph # (Auto) 0.7 L Seg Neuts % (Manual) 99.0 H Lymphocytes % (Manual) 1.0 L Seg Neutrophils # 18.2 H Seg Neutrophils # Man 19.3 H Lymphocytes # (Manual) 0.2 L Monocytes # (Manual) PT 16.5 H INR 1.33 H D-Dimer 1025.04 H ABG pH POC ABG pCO2 POC ABG pO2 ABG Oxyhemoglobin ABG Sodium ABG Glucose Carboxyhemoglobin Sodium 130 L Potassium 3.4 L Chloride 95.0 L Carbon Dioxide BUN 21 H Creatinine Glucose 137 H POC Glucose Lactic Acid Calcium 7.9 L Magnesium Ferritin AST 84 H ALT 67 H Lactate Dehydrogenase 437 H Total Creatine Kinase 310 H C-Reactive Protein 27.90 H Total Protein Albumin 2.9 L Arterial Blood Glucose Arterial Blood Ionized Calcium Urine Creatinine Urine Chloride Coronavirus (PCR) 06/17/20 06/17/20 06/17/20 12:33 12:33 14:48 WBC RBC Hgb Lymph % (Auto) Lymph # (Auto) Seg Neuts % (Manual) Lymphocytes % (Manual) Seg Neutrophils # Seg Neutrophils # Man Lymphocytes # (Manual) Monocytes # (Manual) PT INR D-Dimer ABG pH POC ABG pCO2 POC ABG pO2 ABG Oxyhemoglobin ABG Sodium ABG Glucose Carboxyhemoglobin Sodium Potassium Chloride Carbon Dioxide BUN Creatinine Glucose POC Glucose Lactic Acid 2.50 H* 2.20 H* Calcium Magnesium Ferritin 2297.0 H AST ALT Lactate Dehydrogenase Total Creatine Kinase C-Reactive Protein Total Protein Albumin Arterial Blood Glucose Arterial Blood Ionized Calcium Urine Creatinine Urine Chloride Coronavirus (PCR) 06/17/20 06/17/20 06/17/20 14:48 14:48 14:48 WBC RBC Hgb Lymph % (Auto) Lymph # (Auto) Seg Neuts % (Manual) Lymphocytes % (Manual) Seg Neutrophils # Seg Neutrophils # Man Lymphocytes # (Manual) Monocytes # (Manual) PT INR D-Dimer 939.89 H ABG pH POC ABG pCO2 POC ABG pO2 ABG Oxyhemoglobin ABG Sodium ABG Glucose Carboxyhemoglobin Sodium Potassium Chloride Carbon Dioxide BUN Creatinine Glucose 141 H POC Glucose Lactic Acid Calcium Magnesium Ferritin > 2000.0 H AST ALT Lactate Dehydrogenase 503 H Total Creatine Kinase C-Reactive Protein 24.70 H Total Protein Albumin Arterial Blood Glucose Arterial Blood Ionized Calcium Urine Creatinine Urine Chloride Coronavirus (PCR) 06/17/20 06/17/20 06/17/20 16:54 19:39 23:43 WBC RBC Hgb Lymph % (Auto) Lymph # (Auto) Seg Neuts % (Manual) Lymphocytes % (Manual) Seg Neutrophils # Seg Neutrophils # Man Lymphocytes # (Manual) Monocytes # (Manual) PT INR D-Dimer ABG pH 7.571 H POC ABG pCO2 24.3 L POC ABG pO2 41.6 L ABG Oxyhemoglobin 84.0 L ABG Sodium 131.0 L ABG Glucose 163 H Carboxyhemoglobin Sodium Potassium Chloride Carbon Dioxide BUN Creatinine Glucose POC Glucose 185 H Lactic Acid 2.10 H* Calcium Magnesium Ferritin AST ALT Lactate Dehydrogenase Total Creatine Kinase C-Reactive Protein Total Protein Albumin Arterial Blood Glucose 163 H Arterial Blood Ionized Calcium 4.4 L Urine Creatinine Urine Chloride Coronavirus (PCR) 06/18/20 06/18/20 06/18/20 00:17 00:23 03:55 WBC RBC Hgb Lymph % (Auto) Lymph # (Auto) Seg Neuts % (Manual) Lymphocytes % (Manual) Seg Neutrophils # Seg Neutrophils # Man Lymphocytes # (Manual) Monocytes # (Manual) PT INR D-Dimer ABG pH POC ABG pCO2 POC ABG pO2 56.5 L 48.3 L ABG Oxyhemoglobin 86.3 L 81.7 L ABG Sodium 132.9 L 131.0 L ABG Glucose 189 H 161 H Carboxyhemoglobin 0.4 L Sodium Potassium Chloride Carbon Dioxide BUN Creatinine Glucose POC Glucose Lactic Acid 3.80 H* Calcium Magnesium Ferritin AST ALT Lactate Dehydrogenase Total Creatine Kinase C-Reactive Protein Total Protein Albumin Arterial Blood Glucose 189 H 161 H Arterial Blood Ionized Calcium 4.3 L 4.2 L Urine Creatinine Urine Chloride Coronavirus (PCR) 06/18/20 06/18/20 06/18/20 05:39 05:39 05:39 WBC 26.2 H RBC Hgb Lymph % (Auto) Lymph # (Auto) Seg Neuts % (Manual) 90.0 H Lymphocytes % (Manual) 5.0 L Seg Neutrophils # Seg Neutrophils # Man 23.6 H Lymphocytes # (Manual) Monocytes # (Manual) 1.3 H PT INR D-Dimer ABG pH POC ABG pCO2 POC ABG pO2 ABG Oxyhemoglobin ABG Sodium ABG Glucose Carboxyhemoglobin Sodium 135 L Potassium Chloride 97.5 L Carbon Dioxide 21 L BUN 39 H Creatinine 1.7 H D Glucose 168 H POC Glucose Lactic Acid 3.40 H* Calcium 7.2 L Magnesium Ferritin AST ALT Lactate Dehydrogenase Total Creatine Kinase C-Reactive Protein Total Protein Albumin Arterial Blood Glucose Arterial Blood Ionized Calcium Urine Creatinine Urine Chloride Coronavirus (PCR) 06/18/20 06/18/20 06/18/20 07:24 09:00 10:10 WBC RBC Hgb Lymph % (Auto) Lymph # (Auto) Seg Neuts % (Manual) Lymphocytes % (Manual) Seg Neutrophils # Seg Neutrophils # Man Lymphocytes # (Manual) Monocytes # (Manual) PT INR D-Dimer ABG pH POC ABG pCO2 POC ABG pO2 ABG Oxyhemoglobin ABG Sodium ABG Glucose Carboxyhemoglobin Sodium Potassium Chloride Carbon Dioxide BUN Creatinine Glucose POC Glucose Lactic Acid 2.90 H* 3.20 H* Calcium Magnesium Ferritin AST ALT Lactate Dehydrogenase Total Creatine Kinase C-Reactive Protein Total Protein Albumin Arterial Blood Glucose Arterial Blood Ionized Calcium Urine Creatinine Urine Chloride Coronavirus (PCR) Positive A 06/18/20 06/18/20 06/18/20 11:58 14:43 15:00 WBC RBC Hgb Lymph % (Auto) Lymph # (Auto) Seg Neuts % (Manual) Lymphocytes % (Manual) Seg Neutrophils # Seg Neutrophils # Man Lymphocytes # (Manual) Monocytes # (Manual) PT INR D-Dimer ABG pH 7.303 L POC ABG pCO2 POC ABG pO2 82.3 L ABG Oxyhemoglobin ABG Sodium 135.3 L ABG Glucose 215 H Carboxyhemoglobin 0.3 L Sodium Potassium Chloride Carbon Dioxide BUN Creatinine Glucose POC Glucose 209 H Lactic Acid Calcium Magnesium Ferritin AST ALT Lactate Dehydrogenase Total Creatine Kinase C-Reactive Protein Total Protein Albumin Arterial Blood Glucose 215 H Arterial Blood Ionized Calcium 4.2 L Urine Creatinine 192.4 H Urine Chloride 31.1 L Coronavirus (PCR) 06/18/20 06/18/20 06/18/20 17:16 19:44 20:33 WBC RBC Hgb Lymph % (Auto) Lymph # (Auto) Seg Neuts % (Manual) Lymphocytes % (Manual) Seg Neutrophils # Seg Neutrophils # Man Lymphocytes # (Manual) Monocytes # (Manual) PT INR D-Dimer ABG pH POC ABG pCO2 POC ABG pO2 ABG Oxyhemoglobin ABG Sodium ABG Glucose Carboxyhemoglobin Sodium Potassium Chloride Carbon Dioxide BUN Creatinine Glucose POC Glucose 182 H Lactic Acid 3.00 H* Calcium Magnesium 2.70 H Ferritin AST ALT Lactate Dehydrogenase Total Creatine Kinase C-Reactive Protein Total Protein Albumin Arterial Blood Glucose Arterial Blood Ionized Calcium Urine Creatinine Urine Chloride Coronavirus (PCR) 06/18/20 06/19/20 06/19/20 23:43 04:00 04:00 WBC 31.6 H RBC Hgb Lymph % (Auto) Lymph # (Auto) Seg Neuts % (Manual) 98.0 H Lymphocytes % (Manual) 0.5 L Seg Neutrophils # Seg Neutrophils # Man 31.0 H Lymphocytes # (Manual) 0.2 L Monocytes # (Manual) PT INR D-Dimer ABG pH POC ABG pCO2 POC ABG pO2 ABG Oxyhemoglobin ABG Sodium ABG Glucose Carboxyhemoglobin Sodium Potassium Chloride Carbon Dioxide BUN 56 H Creatinine 1.6 H Glucose 176 H POC Glucose 149 H Lactic Acid Calcium 7.0 L Magnesium Ferritin AST 244 H ALT 159 H Lactate Dehydrogenase Total Creatine Kinase C-Reactive Protein Total Protein 4.9 L D Albumin 2.5 L Arterial Blood Glucose Arterial Blood Ionized Calcium Urine Creatinine Urine Chloride Coronavirus (PCR) 06/19/20 06/19/20 04:00 05:44 WBC RBC Hgb Lymph % (Auto) Lymph # (Auto) Seg Neuts % (Manual) Lymphocytes % (Manual) Seg Neutrophils # Seg Neutrophils # Man Lymphocytes # (Manual) Monocytes # (Manual) PT INR D-Dimer ABG pH 7.265 L POC ABG pCO2 51.8 H POC ABG pO2 65.1 L ABG Oxyhemoglobin ABG Sodium ABG Glucose 184 H Carboxyhemoglobin Sodium Potassium Chloride Carbon Dioxide BUN Creatinine Glucose POC Glucose 156 H Lactic Acid Calcium Magnesium Ferritin AST ALT Lactate Dehydrogenase Total Creatine Kinase C-Reactive Protein Total Protein Albumin Arterial Blood Glucose 184 H Arterial Blood Ionized Calcium 4.3 L Urine Creatinine Urine Chloride Coronavirus (PCR) Chest x-ray: image reviewed Allied health notes reviewed: RT
[2020-06-19] MEDS ORDERED: SODIUM CHLORIDE 0.9% 250ML 250 ML IV NR (09:59)
--- NOTE | 2020-06-19 10:29 | Progress Note ---
Assessment and Plan Cultures: SARS CoV2 PCR: Positive as outpatient SARS-CoV-2 PCR positive low pain 224 okay okay none on the antibiotic given next week for any any other 1 you do have okay thank you best I Blood culture: No growth Sputum culture pending A/P: 59-year-old male with obesity, obesity hypoventilation syndrome: #Severe sepsis with septic shock: Patient on pressors, leukocytosis worsening, likely secondary to critical COVID-19 pneumonia. Blood cultures so far negative. ? Bacterial pneumonia component. #Critical COVID-19 pneumonia: Procalcitonin is also high, treat with empiric antibiotics. Inflammatory markers elevated and worsening. #Acute hypoxic respiratory failure: Worsening, now intubated FiO2 1%, PEEP 16 #Transaminitis: Likely secondary to COVID-19. Worsening #GIRISH: Worsening Recs: -Continue dexamethasone high-dose total 10 days -Continue remdesivir, hold off if CrCl<30 -Stop empiric antibiotics: Ceftriaxone + Azithromycin -Start cefepime IV renally adjusted -Start vancomycin IV renally adjusted, check MRSA PCR -prophylactic anticoagulation based on d-dimer per hospital protocol -trend ferritin, LDH, d-dimer, CRP every 2-3 days for risk stratification and to assess disease progression Poor prognosis Bere Hampton MD [facility] ([facility]) Office [phone] Subjective Date of service: 06/19/20 Principal diagnosis: Critical COVID-19 pneumonia Interval history: Patient remains in critical condition, on pressors, now intubated FiO2 100%, PEEP of 16, sats down to 88%, tachycardic on monitor. Objective - Exam Narrative Exam: Physical exam deferred to minimize COVID-19 transmission during pandemic. - Constitutional Vitals: Vital Signs Temp Pulse Resp BP Pulse Ox 102.4 F H 119 H 12 102/52 88 06/19/20 08:00 06/19/20 10:16 06/19/20 10:16 06/19/20 10:16 06/19/20 10:16 Temperature -Last 24 Hours Temperature 102.4 F Temperature 101.8 F Temperature 100.2 F Temperature 97.9 F Temperature 98.2 F Temperature 99.2 F - Labs CBC & Chem 7: 06/19/20 04:00 06/19/20 04:00 Labs: Abnormal lab results 06/18/20 06/18/20 06/18/20 Range/Units 09:00 10:10 11:58 WBC (4.5-11.0) K/mm3 Seg Neuts % (Manual) (40.0-70.0) % Lymphocytes % (Manual) (13.4-35.0) % Seg Neutrophils # Man (1.8-7.7) K/mm3 Lymphocytes # (Manual) (1.2-5.4) K/mm3 ABG pH (7.320-7.450) POC ABG pCO2 (32.0-48.0) mmHg POC ABG pO2 (83-108) mmHg ABG Sodium (136.0-145.0) mmol/L ABG Glucose (65-95) mg/dL Carboxyhemoglobin (0.5-1.5) BUN (9-20) mg/dL Creatinine (0.8-1.3) mg/dL Glucose (75-100) mg/dL POC Glucose 209 H (70-105) mg/dL Lactic Acid 3.20 H* (0.7-2.0) mmol/L Calcium (8.4-10.2) mg/dL Magnesium (1.7-2.3) mg/dL AST (5-40) units/L ALT (7-56) units/L Total Protein (6.3-8.2) g/dL Albumin (3.9-5) g/dL Arterial Blood Glucose (65-95) mg/dL Arterial Blood Ionized Calcium (4.6-5.3) mg/dL Urine Creatinine (0.1-20.0) mg/dL Urine Chloride (110-250) mmolL Coronavirus (PCR) Positive A (Negative) 06/18/20 06/18/20 06/18/20 Range/Units 14:43 15:00 17:16 WBC (4.5-11.0) K/mm3 Seg Neuts % (Manual) (40.0-70.0) % Lymphocytes % (Manual) (13.4-35.0) % Seg Neutrophils # Man (1.8-7.7) K/mm3 Lymphocytes # (Manual) (1.2-5.4) K/mm3 ABG pH 7.303 L (7.320-7.450) POC ABG pCO2 (32.0-48.0) mmHg POC ABG pO2 82.3 L (83-108) mmHg ABG Sodium 135.3 L (136.0-145.0) mmol/L ABG Glucose 215 H (65-95) mg/dL Carboxyhemoglobin 0.3 L (0.5-1.5) BUN (9-20) mg/dL Creatinine (0.8-1.3) mg/dL Glucose (75-100) mg/dL POC Glucose 182 H (70-105) mg/dL Lactic Acid (0.7-2.0) mmol/L Calcium (8.4-10.2) mg/dL Magnesium (1.7-2.3) mg/dL AST (5-40) units/L ALT (7-56) units/L Total Protein (6.3-8.2) g/dL Albumin (3.9-5) g/dL Arterial Blood Glucose 215 H (65-95) mg/dL Arterial Blood Ionized Calcium 4.2 L (4.6-5.3) mg/dL Urine Creatinine 192.4 H (0.1-20.0) mg/dL Urine Chloride 31.1 L (110-250) mmolL Coronavirus (PCR) (Negative) 06/18/20 06/18/20 06/18/20 Range/Units 19:44 20:33 23:43 WBC (4.5-11.0) K/mm3 Seg Neuts % (Manual) (40.0-70.0) % Lymphocytes % (Manual) (13.4-35.0) % Seg Neutrophils # Man (1.8-7.7) K/mm3 Lymphocytes # (Manual) (1.2-5.4) K/mm3 ABG pH (7.320-7.450) POC ABG pCO2 (32.0-48.0) mmHg POC ABG pO2 (83-108) mmHg ABG Sodium (136.0-145.0) mmol/L ABG Glucose (65-95) mg/dL Carboxyhemoglobin (0.5-1.5) BUN (9-20) mg/dL Creatinine (0.8-1.3) mg/dL Glucose (75-100) mg/dL POC Glucose 149 H (70-105) mg/dL Lactic Acid 3.00 H* (0.7-2.0) mmol/L Calcium (8.4-10.2) mg/dL Magnesium 2.70 H (1.7-2.3) mg/dL AST (5-40) units/L ALT (7-56) units/L Total Protein (6.3-8.2) g/dL Albumin (3.9-5) g/dL Arterial Blood Glucose (65-95) mg/dL Arterial Blood Ionized Calcium (4.6-5.3) mg/dL Urine Creatinine (0.1-20.0) mg/dL Urine Chloride (110-250) mmolL Coronavirus (PCR) (Negative) 06/19/20 06/19/20 06/19/20 Range/Units 04:00 04:00 04:00 WBC 31.6 H (4.5-11.0) K/mm3 Seg Neuts % (Manual) 98.0 H (40.0-70.0) % Lymphocytes % (Manual) 0.5 L (13.4-35.0) % Seg Neutrophils # Man 31.0 H (1.8-7.7) K/mm3 Lymphocytes # (Manual) 0.2 L (1.2-5.4) K/mm3 ABG pH 7.265 L (7.320-7.450) POC ABG pCO2 51.8 H (32.0-48.0) mmHg POC ABG pO2 65.1 L (83-108) mmHg ABG Sodium (136.0-145.0) mmol/L ABG Glucose 184 H (65-95) mg/dL Carboxyhemoglobin (0.5-1.5) BUN 56 H (9-20) mg/dL Creatinine 1.6 H (0.8-1.3) mg/dL Glucose 176 H (75-100) mg/dL POC Glucose (70-105) mg/dL Lactic Acid (0.7-2.0) mmol/L Calcium 7.0 L (8.4-10.2) mg/dL Magnesium (1.7-2.3) mg/dL AST 244 H (5-40) units/L ALT 159 H (7-56) units/L Total Protein 4.9 L D (6.3-8.2) g/dL Albumin 2.5 L (3.9-5) g/dL Arterial Blood Glucose 184 H (65-95) mg/dL Arterial Blood Ionized Calcium 4.3 L (4.6-5.3) mg/dL Urine Creatinine (0.1-20.0) mg/dL Urine Chloride (110-250) mmolL Coronavirus (PCR) (Negative) 06/19/20 Range/Units 05:44 WBC (4.5-11.0) K/mm3 Seg Neuts % (Manual) (40.0-70.0) % Lymphocytes % (Manual) (13.4-35.0) % Seg Neutrophils # Man (1.8-7.7) K/mm3 Lymphocytes # (Manual) (1.2-5.4) K/mm3 ABG pH (7.320-7.450) POC ABG pCO2 (32.0-48.0) mmHg POC ABG pO2 (83-108) mmHg ABG Sodium (136.0-145.0) mmol/L ABG Glucose (65-95) mg/dL Carboxyhemoglobin (0.5-1.5) BUN (9-20) mg/dL Creatinine (0.8-1.3) mg/dL Glucose (75-100) mg/dL POC Glucose 156 H (70-105) mg/dL Lactic Acid (0.7-2.0) mmol/L Calcium (8.4-10.2) mg/dL Magnesium (1.7-2.3) mg/dL AST (5-40) units/L ALT (7-56) units/L Total Protein (6.3-8.2) g/dL Albumin (3.9-5) g/dL Arterial Blood Glucose (65-95) mg/dL Arterial Blood Ionized Calcium (4.6-5.3) mg/dL Urine Creatinine (0.1-20.0) mg/dL Urine Chloride (110-250) mmolL Coronavirus (PCR) (Negative)
[2020-06-19] MEDS: dexAMETHasone 4 MG/ML VIAL IV SCH ×2 (10:36→21:21)
[2020-06-19] MEDS: HEPARIN 5,000 UNIT/1 ML VIAL SUB-Q SCH (10:36)
[2020-06-19] MEDS: ZINC SULFATE 220 MG CAP PO SCH ×2 (10:37→21:22)
[2020-06-19] MEDS: CHOLECALCIFEROL (VIT D3) 1000 UNIT (25 mcg) TAB PO SCH (10:37)
[2020-06-19] MEDS ORDERED: VANCOMYCIN PHARMACY TO DOSE IV SCH (11:00)
--- NOTE | 2020-06-19 11:27 | Progress Note ---
Assessment and Plan May initiate IV Amio gtt for sustained rate > 130 bpm. Wean pressors as tolerated. PRN repletion of electrolytes. Recommend switching SQ heparin to IV heparin gtt given AF duration > 24 hrs. Guarded prognosis. Case reviewed in conjunction with Dr. Chavis, who agrees with the assessment and plan of care. - Patient Problems (1) Acute respiratory failure with hypoxia Current Visit: Yes Status: Acute (2) Pneumonia due to COVID-19 virus Current Visit: Yes Status: Acute (3) Sepsis Current Visit: Yes Status: Acute Qualifiers: Severe sepsis acute organ dysfunction type: acute respiratory failure Severe sepsis shock status: with septic shock (4) Atrial fibrillation with rapid ventricular response Current Visit: Yes Status: Acute (5) GIRISH (acute kidney injury) Current Visit: Yes Status: Acute (6) Elevated LFTs Current Visit: Yes Status: Acute Subjective Date of service: 06/19/20 Principal diagnosis: ARF/Septic Shock/COVID-19 PNA, AF with RVR Interval history: No acute events reported overnight. Remains in AF 90-120s on tele, no events. On Levo & Vaso gtts. Objective Vital Signs Temp Pulse Pulse Pulse Resp BP Pulse Ox 06/19/20 10:16 119 H 12 102/52 88 06/19/20 10:00 108 H 12 96/58 88 06/19/20 09:46 142 H 12 100/54 91 06/19/20 09:30 118 H 13 104/55 91 06/19/20 09:16 128 H 11 L 103/54 89 06/19/20 09:00 148 H 10 L 105/56 89 06/19/20 08:46 123 H 15 105/59 90 06/19/20 08:30 121 H 13 97/59 90 06/19/20 08:16 139 H 11 L 92/58 88 06/19/20 08:00 102.4 F H 115 H 130 H 13 98/62 89 06/19/20 07:46 122 H 10 L 102/62 89 06/19/20 07:40 130 H 06/19/20 07:30 115 H 12 106/56 89 06/19/20 07:16 126 H 14 94/64 89 06/19/20 07:00 123 H 16 94/60 87 06/19/20 06:46 111 H 11 L 99/58 90 06/19/20 06:30 120 H 13 107/61 89 06/19/20 06:16 123 H 10 L 103/61 90 06/19/20 06:00 112 H 11 L 104/53 91 06/19/20 05:46 110 H 11 L 105/61 91 06/19/20 05:30 126 H 12 106/58 89 06/19/20 05:16 117 H 11 L 109/59 89 06/19/20 05:00 122 H 10 L 99/59 90 06/19/20 04:46 140 H 13 103/55 90 06/19/20 04:30 128 H 11 L 98/57 90 06/19/20 04:16 102 H 10 L 103/58 91 06/19/20 04:00 101.8 F H 108 H 83 83 9 L 102/56 89 06/19/20 03:52 108 H 95/57 91 06/19/20 03:46 140 H 12 98/62 91 06/19/20 03:30 121 H 13 104/55 90 06/19/20 03:16 108 H 10 L 99/60 90 06/19/20 03:00 114 H 10 L 102/58 91 06/19/20 02:46 131 H 10 L 97/57 93 06/19/20 02:30 114 H 12 101/63 93 06/19/20 02:16 123 H 10 L 97/63 93 06/19/20 02:00 111 H 10 L 101/56 95 06/19/20 01:46 128 H 12 105/54 96 06/19/20 01:30 140 H 11 L 105/63 95 06/19/20 01:15 101/56 97 06/19/20 01:00 126 H 18 104/56 97 06/19/20 00:46 121 H 22 102/60 97 06/19/20 00:30 117 H 12 101/59 97 06/19/20 00:26 132 H 97/58 97 06/19/20 00:16 133 H 15 87/60 97 06/19/20 00:00 100.2 F H 133 H 83 83 20 96/60 97 06/18/20 23:46 126 H 13 95/60 95 06/18/20 23:30 121 H 10 L 103/59 95 06/18/20 23:18 116 H 12 106/63 96 06/18/20 23:16 112 H 14 106/63 96 06/18/20 23:00 133 H 13 106/64 97 06/18/20 22:46 159 H 14 100/64 97 06/18/20 22:30 143 H 11 L 103/59 97 06/18/20 22:16 127 H 13 104/60 97 06/18/20 22:00 135 H 12 106/58 96 06/18/20 21:46 139 H 22 93/62 96 06/18/20 21:30 108 H 11 L 91/64 94 06/18/20 21:16 137 H 14 106/64 95 06/18/20 21:00 120 H 14 118/68 95 06/18/20 20:54 157 H 118/68 94 06/18/20 20:46 117 H 15 128/66 94 06/18/20 20:30 124 H 12 121/57 95 06/18/20 20:16 125 H 14 111/68 94 06/18/20 20:00 97.9 F 113 H 83 83 14 110/69 94 06/18/20 19:46 110 H 13 108/66 87 06/18/20 19:30 121 H 16 87/58 06/18/20 19:16 105 H 12 111/62 96 06/18/20 19:00 122 H 12 93/65 95 06/18/20 18:46 111 H 13 109/60 95 06/18/20 18:30 96 H 14 95/71 95 06/18/20 18:16 103 H 16 109/63 97 06/18/20 18:00 103 H 12 108/63 95 06/18/20 17:46 100 H 15 102/57 97 06/18/20 17:30 107 H 12 107/57 96 06/18/20 17:16 97 H 16 100/66 96 06/18/20 17:00 102 H 12 107/61 96 06/18/20 16:46 101 H 13 104/61 97 06/18/20 16:30 96 H 16 103/56 95 06/18/20 16:16 112 H 12 108/57 95 06/18/20 16:00 98.2 F 89 83 83 12 104/60 95 06/18/20 15:46 96 H 12 108/61 95 06/18/20 15:30 93 H 12 112/63 97 02/06/21 15:16 96 H 12 106/64 96 06/18/20 15:00 90 12 111/58 96 06/18/20 14:46 93 H 12 106/61 96 06/18/20 14:30 86 13 105/58 95 06/18/20 14:15 87 17 92/51 97 06/18/20 14:00 80 17 94/53 96 06/18/20 13:45 89 17 94/54 97 06/18/20 13:30 92 H 20 94/54 95 06/18/20 13:15 107 H 84/56 89 06/18/20 13:00 95 H 22 84/56 84 06/18/20 12:45 85 23 96/58 84 06/18/20 12:30 97 H 19 93/62 85 06/18/20 12:15 96 H 22 99/65 85 06/18/20 12:00 95 H 92 H 92 H 23 100/61 85 06/18/20 11:56 99.2 F 06/18/20 11:45 100 H 27 H 102/63 81 L 06/18/20 11:30 92 H 21 90/63 87 06/18/20 11:29 88 90/63 88 - Physical Examination Narrative exam: Exam deferred due to COVID-19 infection (exposure reduction). Recommendations based on chart review and provider discussions. - Labs and Meds Cardiac Enzymes 06/19/20 Range/Units 04:00 AST 244 H (5-40) units/L CBC 06/19/20 Range/Units 04:00 WBC 31.6 H (4.5-11.0) K/mm3 RBC 4.50 (3.65-5.03) M/mm3 Hgb 13.3 (11.8-15.2) gm/dl Hct 40.3 (35.5-45.6) % Plt Count 205 (140-440) K/mm3 Comprehensive Metabolic Panel 06/19/20 Range/Units 04:00 Sodium 141 (137-145) mmol/L Potassium 4.8 (3.6-5.0) mmol/L Chloride 104.8 (98-107) mmol/L Carbon Dioxide 24 (22-30) mmol/L BUN 56 H (9-20) mg/dL Creatinine 1.6 H (0.8-1.3) mg/dL Glucose 176 H (75-100) mg/dL Calcium 7.0 L (8.4-10.2) mg/dL AST 244 H (5-40) units/L ALT 159 H (7-56) units/L Alkaline Phosphatase 60 (35-129) units/L Total Protein 4.9 L D (6.3-8.2) g/dL Albumin 2.5 L (3.9-5) g/dL - Imaging and Cardiology EKG: report reviewed, image reviewed - Telemetry EKG Rhythm: Atrial Fibrillation - EKG Supraventricular dysrhythmia: atrial fibrillation
[2020-06-19] MEDS ORDERED: VANCOMYCIN 2,000 MG in SODIUM CHLORIDE 0.9% 500 ML 500 ML IV ONE (12:00)
[2020-06-19] MEDS ORDERED: SIMPLE SYRUP 15 ML FEEDTUBE PRN (12:15)
[2020-06-19] MEDS ORDERED: LIPASE 10,500/PROTEASE 25,000/AMYLASE 43,750 (UNITS) DR CAP FEEDTUBE PRN (12:15)
[2020-06-19] MEDS ORDERED: SODIUM BICARBONATE 325 MG TAB FEEDTUBE PRN (12:15)
[2020-06-19] MEDS: ASCORBIC ACID 250 MG TAB PO SCH ×2 (12:36→21:22)
[2020-06-19] MEDS: HEPARIN/ 0.45% NACL DRIP 25,000 UNIT/500 ML BAG IV SCH (12:37)
[2020-06-19] MEDS: HEPARIN 10,000 UNITS/10 ML VIAL IV PRN (12:37)
[2020-06-19] MEDS: CEFEPIME/NS 2 GM/100 ML 2 GM/100 ML BAG IV SCH ×2 (12:37→21:21)
--- NOTE | 2020-06-19 12:38 | Progress Note ---
Assessment and Plan - Patient Problems (1) Acute renal failure Current Visit: Yes Status: Acute Plan to address problem: Likely prerenal in nature secondary to new onset of COVID-19 pneumonia with worsening sepsis and hypotension. Concern for acute tubular necrosis. He does however remain nonoliguric at this time and will continue to closely monitor his urine output. Please ensure that we avoid all nephrotoxins at this time. We will need to maintain mean arterial pressures above 65 mmHg. Titrate pressors accordingly. Renal ultrasound is pending at this time. Urine electrolytes for further evaluation, likely indicating pre-renal injury. Urinalysis without any acute abnormalities noted. (2) Pneumonia due to COVID-19 virus Current Visit: Yes Status: Acute Plan to address problem: Management per infectious disease recommendations. (3) Acute respiratory failure with hypoxia Current Visit: Yes Status: Acute Plan to address problem: Patient currently intubated at this time. Vent management per pulmonology recommendations. (4) Hypokalemia Current Visit: Yes Status: Acute Plan to address problem: Replete per protocol. Subjective Date of service: 06/19/20 Principal diagnosis: ARF/Septic Shock/COVID-19 PNA, AF with RVR Interval history: Remains on pressor support, intubated. UOP noted. Non-oliguric over the last 24 hours. Renal function remains stable. Objective - Exam Narrative Exam: Not directly examined in order to preserve PPE. - Vital Signs Vital signs: Vital Signs - 12hr 06/19/20 06/19/20 06/19/20 00:46 01:00 01:15 Temperature Pulse Rate 121 H 126 H Pulse Rate [ Apical] Pulse Rate [ From Monitor] Respiratory 22 18 Rate Blood Pressure 102/60 104/56 101/56 O2 Sat by Pulse 97 97 97 Oximetry 06/19/20 06/19/20 06/19/20 01:30 01:46 02:00 Temperature Pulse Rate 140 H 128 H 111 H Pulse Rate [ Apical] Pulse Rate [ From Monitor] Respiratory 11 L 12 10 L Rate Blood Pressure 105/63 105/54 101/56 O2 Sat by Pulse 95 96 95 Oximetry 06/19/20 06/19/20 06/19/20 02:16 02:30 02:46 Temperature Pulse Rate 123 H 114 H 131 H Pulse Rate [ Apical] Pulse Rate [ From Monitor] Respiratory 10 L 12 10 L Rate Blood Pressure 97/63 101/63 97/57 O2 Sat by Pulse 93 93 93 Oximetry 06/19/20 06/19/20 06/19/20 03:00 03:16 03:30 Temperature Pulse Rate 114 H 108 H 121 H Pulse Rate [ Apical] Pulse Rate [ From Monitor] Respiratory 10 L 10 L 13 Rate Blood Pressure 102/58 99/60 104/55 O2 Sat by Pulse 91 90 90 Oximetry 06/19/20 06/19/20 06/19/20 03:46 03:52 04:00 Temperature 101.8 F H Pulse Rate 140 H 108 H 108 H Pulse Rate [ 83 Apical] Pulse Rate [ 83 From Monitor] Respiratory 12 9 L Rate Blood Pressure 98/62 95/57 102/56 O2 Sat by Pulse 91 91 89 Oximetry 06/19/20 06/19/20 06/19/20 04:16 04:30 04:46 Temperature Pulse Rate 102 H 128 H 140 H Pulse Rate [ Apical] Pulse Rate [ From Monitor] Respiratory 10 L 11 L 13 Rate Blood Pressure 103/58 98/57 103/55 O2 Sat by Pulse 91 90 90 Oximetry 06/19/20 06/19/20 06/19/20 05:00 05:16 05:30 Temperature Pulse Rate 122 H 117 H 126 H Pulse Rate [ Apical] Pulse Rate [ From Monitor] Respiratory 10 L 11 L 12 Rate Blood Pressure 99/59 109/59 106/58 O2 Sat by Pulse 90 89 89 Oximetry 06/19/20 06/19/20 06/19/20 05:46 06:00 06:16 Temperature Pulse Rate 110 H 112 H 123 H Pulse Rate [ Apical] Pulse Rate [ From Monitor] Respiratory 11 L 11 L 10 L Rate Blood Pressure 105/61 104/53 103/61 O2 Sat by Pulse 91 91 90 Oximetry 06/19/20 06/19/20 06/19/20 06:30 06:46 07:00 Temperature Pulse Rate 120 H 111 H 123 H Pulse Rate [ Apical] Pulse Rate [ From Monitor] Respiratory 13 11 L 16 Rate Blood Pressure 107/61 99/58 94/60 O2 Sat by Pulse 89 90 87 Oximetry 06/19/20 06/19/20 06/19/20 07:16 07:30 07:40 Temperature Pulse Rate 126 H 115 H 130 H Pulse Rate [ Apical] Pulse Rate [ From Monitor] Respiratory 14 12 Rate Blood Pressure 94/64 106/56 O2 Sat by Pulse 89 89 Oximetry 06/19/20 06/19/20 06/19/20 07:46 08:00 08:16 Temperature 102.4 F H Pulse Rate 122 H 115 H 139 H Pulse Rate [ Apical] Pulse Rate [ 130 H From Monitor] Respiratory 10 L 13 11 L Rate Blood Pressure 102/62 98/62 92/58 O2 Sat by Pulse 89 89 88 Oximetry 06/19/20 06/19/20 06/19/20 08:30 08:46 09:00 Temperature Pulse Rate 121 H 123 H 148 H Pulse Rate [ Apical] Pulse Rate [ From Monitor] Respiratory 13 15 10 L Rate Blood Pressure 97/59 105/59 105/56 O2 Sat by Pulse 90 90 89 Oximetry 06/19/20 06/19/20 06/19/20 09:16 09:30 09:46 Temperature Pulse Rate 128 H 118 H 142 H Pulse Rate [ Apical] Pulse Rate [ From Monitor] Respiratory 11 L 13 12 Rate Blood Pressure 103/54 104/55 100/54 O2 Sat by Pulse 89 91 91 Oximetry 06/19/20 06/19/20 06/19/20 10:00 10:16 10:30 Temperature Pulse Rate 108 H 119 H 115 H Pulse Rate [ Apical] Pulse Rate [ From Monitor] Respiratory 12 12 11 L Rate Blood Pressure 96/58 102/52 93/59 O2 Sat by Pulse 88 88 88 Oximetry 06/19/20 06/19/20 06/19/20 10:46 11:00 11:16 Temperature Pulse Rate 114 H 104 H 124 H Pulse Rate [ Apical] Pulse Rate [ From Monitor] Respiratory 14 14 12 Rate Blood Pressure 96/63 93/65 102/58 O2 Sat by Pulse 91 83 L 91 Oximetry 06/19/20 06/19/20 06/19/20 11:30 11:54 12:00 Temperature 99.5 F Pulse Rate 108 H 123 H Pulse Rate [ Apical] Pulse Rate [ From Monitor] Respiratory 12 Rate Blood Pressure 98/57 92/56 O2 Sat by Pulse 85 91 Oximetry - Lab 06/19/20 04:00 06/19/20 04:00 Most recent lab results ABG pH 7.265 (7.320-7.450) L 06/19/20 04:00 Calcium 7.0 mg/dL (8.4-10.2) L 06/19/20 04:00 Magnesium 2.70 mg/dL (1.7-2.3) H 06/18/20 20:33 Urine Creatinine 192.4 mg/dL (0.1-20.0) H 06/18/20 15:00 Urine Sodium 28 mmol/L 06/18/20 15:00 Medications & Allergies - Medications Allergies/Adverse Reactions: Allergies No Known Allergies Allergy (Unverified 06/17/20 14:24) Home Medications: Home Medications Medication Instructions Recorded Confirmed Last Taken Type Losartan/Hydrochlorothiazide 1 each PO QDAY 06/19/20 06/19/20 Unknown History [Losartan-Hctz 100-25 mg Tab] amLODIPine [Norvasc] 5 mg PO DAILY 06/19/20 06/19/20 Unknown History Active Medications: Generic Name Dose Route Start Last Admin Trade Name Freq PRN Reason Stop Dose Admin Acetaminophen 650 mg 06/17/20 14:17 06/19/20 06:42 Acetaminophen 325 Mg Tab PO 650 mg Q4H PRN Administration Pain MILD(1-3)/Fever >100.5/ROBERTS Lipase/Protease/Amylase 1 each 06/18/20 10:43 Lipase 10,500/Protease 25,000/Amylase 43,750 (Units) Dr Kulkarni FEEDTUBE PRN PRN For Clogged Feeding Tube Lipase/Protease/Amylase 1 each 06/19/20 12:15 Lipase 10,500/Protease 25,000/Amylase 43,750 (Units) Dr Kulkarni FEEDTUBE PRN PRN For Clogged Feeding Tube Ascorbic Acid 250 mg 06/17/20 22:00 06/18/20 23:12 Ascorbic Acid 250 Mg Tab PO 250 mg BID CONNOR Administration Cholecalciferol 1,000 unit 06/18/20 10:00 06/19/20 10:37 Cholecalciferol (Vit D3) 1000 Unit (25 Mcg) Tab PO 1,000 unit DAILY CONNOR Administration Dexamethasone 6 mg 06/18/20 22:00 06/19/20 10:36 Dexamethasone 4 Mg/Ml Vial IV 6 mg Q12HR CONNOR Administration Fentanyl 50 mcg 06/18/20 01:02 06/18/20 01:22 Fentanyl 100 Mcg/2 Ml Inj IV 50 mcg Q10MIN PRN Administration ANALGESIA Heparin Sodium (Porcine) 4,500 unit 06/19/20 11:34 Heparin 10,000 Units/10 Ml Vial 40 unit/kg (4500 unit) IV Q6H PRN Anti-Xa Assay < 0.1 units/ml Hydromorphone HCl 0.25 mg 06/17/20 14:21 Hydromorphone 1 Mg/1 Ml Inj IV Q4H PRN Pain, Moderate (4-6) Hydrophilic Ointment 1 applic 06/17/20 22:52 Lip Therapy Vaseline TP Q2HR PRN Dry Lips REMDESIVIR 100 mg/ Sodium 250 mls @ 500 mls/hr 06/18/20 21:00 06/18/20 23:04 Chloride IV 06/21/20 21:29 500 mls/hr Q24HR@2100 CONNOR Administration Norepinephrine 4 mg in 250 mls @ 7.5 mls/hr 06/18/20 00:00 06/19/20 08:47 Levophed Drip 4 Mg/Ns 250 Ml IV 18 mcg/min TITR CONNOR 67.5 mls/hr Administration Protocol 2 MCG/MIN Propofol 1,000 mg in 100 mls @ 3.402 mls/hr 06/18/20 01:00 06/19/20 05:25 Diprivan 10 Mg/Ml IV 15 mcg/kg/min TITR CONNOR 10.206 mls/hr Administration Protocol 5 MCG/KG/MIN Fentanyl Citrate 2,000 mcg in 100 mls @ 5.67 mls/hr 06/18/20 02:00 06/19/20 10:37 Fentanyl Drip Premix IV 4 mcg/kg/hr TITR CONNOR 22.68 mls/hr Administration Protocol 1 MCG/KG/HR Vasopressin 20 unit/ Sodium 101 mls @ 9.09 mls/hr 06/18/20 10:00 06/19/20 05:01 Chloride IV 0.03 units/min TITR CONONR 9.09 mls/hr Administration Protocol 0.03 UNITS/MIN Sodium Chloride 500 mls @ 1 mls/hr 06/18/20 09:38 06/18/20 10:16 Nacl 0.9% 500 Ml IV 1 mls/hr DIRECT PRN Administration ARTERIAL LINE FLUSH Dextrose/Sodium Chloride 1,000 mls @ 75 mls/hr 06/18/20 12:00 06/19/20 05:13 D5ns IV 75 mls/hr DIRECT CONNOR Administration Cefepime HCl 2 gm in 100 mls @ 200 mls/hr 06/19/20 11:00 Cefepime/Ns 2 Gm/100 Ml IV Q12HR [facility] Protocol Vancomycin HCl 2,000 mg/ 540 mls @ 360 mls/hr 06/19/20 12:00 Sodium Chloride IV 06/19/20 13:29 ONCE ONE Vancomycin HCl 1,250 mg/ 275 mls @ 183.333 mls/hr 06/20/20 00:00 Sodium Chloride IV Q12H [facility] Heparin Sodium/Sodium Chloride 25,000 unit in 500 mls @ 30 mls/hr 06/19/20 12:00 Heparin/ 0.45% Nacl-25,000 Unit/500 Ml IV TITR CONNOR Protocol 1,500 UNITS/HR Insulin Human Regular 0 units 06/18/20 12:00 06/19/20 06:22 Insulin Regular, Human 100 Units/1 Ml SUB-Q 2 units Q6HR [facility] Administration Protocol Lorazepam 1 mg 06/17/20 17:05 06/17/20 17:10 Lorazepam 2 Mg/Ml Vial IV 1 mg BID PRN Administration Anxiety Lorazepam 2 mg 06/17/20 22:52 Lorazepam 2 Mg/Ml Vial IV Q10MIN PRN Agitation Multi-Ingred Cream/Lotion/Oil/Oint 1 applic 06/17/20 22:52 Mineral Oil/Petrolatum, White Ophth Oint 3.5 Gm OU Q4HR PRN Dry Eye(s) Ondansetron HCl 4 mg 06/17/20 14:17 Ondansetron 4 Mg/2 Ml Inj IV Q8H PRN Nausea And Vomiting Simple Syrup 15 ml 06/18/20 10:43 Simple Syrup 15 Ml FEEDTUBE PRN PRN Hypoglycemia Simple Syrup 30 ml 06/18/20 10:43 Simple Syrup 15 Ml FEEDTUBE PRN PRN Hypoglycemia Simple Syrup 15 ml 06/19/20 12:15 Simple Syrup 15 Ml FEEDTUBE PRN PRN Hypoglycemia Simple Syrup 30 ml 06/19/20 12:15 Simple Syrup 15 Ml FEEDTUBE PRN PRN Hypoglycemia Sodium Bicarbonate 325 mg 06/18/20 10:43 Sodium Bicarbonate 325 Mg Tab FEEDTUBE PRN PRN For Clogged Feeding Tube Sodium Bicarbonate 325 mg 06/19/20 12:15 Sodium Bicarbonate 325 Mg Tab FEEDTUBE PRN PRN For Clogged Feeding Tube Sodium Chloride 10 ml 06/17/20 22:00 06/19/20 10:37 Sodium Chloride 0.9% 10 Ml Flush Syringe IV 10 ml BID CONNOR Administration Sodium Chloride 10 ml 06/17/20 14:17 Sodium Chloride 0.9% 10 Ml Flush Syringe IV PRN PRN LINE FLUSH Sodium Chloride 50 ml 06/17/20 17:00 06/19/20 07:15 Sodium Chloride 0.9% 50 Ml Ivpb IV 06/20/20 21:01 Not Given Q24HR@2100 [facility] Zinc Sulfate 220 mg 06/17/20 22:00 06/19/20 10:37 Zinc Sulfate 220 Mg Cap PO 220 mg BID CONNOR Administration
[2020-06-19 13:13] LABS: Hematocrit 37.9 % (35.5-45.6); Hemoglobin 12.6 gm/dl (11.8-15.2)
[2020-06-19 13:24] LABS: INR 1.32 (0.87-1.13)
[2020-06-19 13:25] LABS: Partial Thromboplastin Time 34.9 Sec. (24.2-36.6)
--- NOTE | 2020-06-19 14:29 | Progress Note ---
Assessment and Plan Acute metabolic encephalopathy -Due to severe sepsis and severe hypoxia -CT head ordered, currently intubated, continue supportive care with frequent neuro check Acute hypoxic respiratory failure -Due to severe COVID-19 pneumonia -Intubated following admission overnight as patient was unable to maintain oxygenation with 100% FiO2 with BiPAP -Critical care following, frequent nebulizer breathing treatment, empiric steroid Severe septic shock -Patient currently on 2 pressor support -Wean off as tolerated COVID-19 pneumonia -Follow inflammatory markers, ID consulted --Patient initially tested positive for COVID-19 virus about 2 weeks before this admission -CXR shows patchy parenchymal disease which represent pulmonary edema or aty pical pneumonia -Placed on dexamethasone for total 10 days and remdesivir total 5 days as long as renal function is optimal -hold off if CrCl<30 -Continue empiric antibiotics for now -Infectious disease consulted, will follow recommendation -Droplet/contact isolation -Continue SPO2 monitoring -Supplemental oxygen as needed -Pulmonary hygiene, Prone intermittently to improve oxygenation -Vitamin C, vitamin D, zinc -Anticoagulation per protocol -Lasix IV as needed to prevent pulmonary edema GIRISH, likely ATN -Follow BMP daily, avoid nephrotoxins -Consult nephrology, follow recommendations hypokalemia, repleted Supraventricular tachycardia/paroxysmal atrial fibrillation -likely due to severe sepsis -Patient currently on 2 pressor, will initiate IV amiodarone drip for rate control if needed -Consulted cardiology, echo ordered currently pending -Placed on heparin drip Elevated LFT, due to shock liver from severe sepsis and COVID-19 infection -Continue to trend DVT prophylaxis, per Covid protocol The high probability of a clinically significant, sudden or life threatening deterioration of the [cvs, 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 The aggregate critical care time was [42] minutes. This time is in addition to time spent performing reported procedures but includes the following: [x] Data Review and interpretation [x] Patient assessment and monitoring of vital signs [x] Documentation [x] Medication orders and management 06/18: Patient got intubated overnight. Patient was placed on BiPAP to maintain oxygenation with 100% FiO2 but apparently he found to take off his argueta which made his oxygen saturation go down at 60s/50s and patient was found altered mental status. Code met was called immediately. Patient was transferred to ICU and intubated, patient currently on 2 pressors, intubated with 100% FiO2, renal function noted to be decline, nephrology consulted. Discussed with [place] physician Dr. Thompson and requested call back on Saturday. Poor prognosis, continue to monitor with aggressive supportive care. Also called family/ to update clinical status. 06/19: repeat COVID test was positive. cont cefepime, remdesivir per ID recommendation. follow inflammatory markers, cbc, bmp. placed on heparin drip for atrial fib. Subjective Date of service: 06/19/20 Principal diagnosis: ARF/Septic Shock/COVID-19 PNA, AF with RVR Interval history: Patient seen and examined Currently on 2 pressors, mechanically ventilated and sedated Noted vitals, lab results reviewed Discussed with RN at the bedside and critical care attending Objective - Exam Narrative Exam: Limited physical exam due to COVID-19 pandemic to minimize transmission of the disease and to preserve PPE. Vital reviewed and stable. GENERAL: well-developed obese white male lying on bed who is mechanically ventilated and sedated. HEENT: Normocephalic. Atraumatic. NECK: Supple. CHEST/LUNGS: On mechanical ventilation HEART/CARDIOVASCULAR: Tachycardic ABDOMEN: Visibly not distended SKIN: There is no rash NEURO: Patient is intubated MUSCULOSKELETAL: No joint effusion EXTRIMITY: no cyanosis or clubbing. PSYCH: Unable to assess. - Constitutional Vitals: Vital Signs - 12hr 06/19/20 06/19/20 06/19/20 02:30 02:46 03:00 Temperature Pulse Rate 114 H 131 H 114 H Pulse Rate [ Apical] Pulse Rate [ From Monitor] Respiratory 12 10 L 10 L Rate Blood Pressure 101/63 97/57 102/58 O2 Sat by Pulse 93 93 91 Oximetry 06/19/20 06/19/20 06/19/20 03:16 03:30 03:46 Temperature Pulse Rate 108 H 121 H 140 H Pulse Rate [ Apical] Pulse Rate [ From Monitor] Respiratory 10 L 13 12 Rate Blood Pressure 99/60 104/55 98/62 O2 Sat by Pulse 90 90 91 Oximetry 06/19/20 06/19/20 06/19/20 03:52 04:00 04:16 Temperature 101.8 F H Pulse Rate 108 H 108 H 102 H Pulse Rate [ 83 Apical] Pulse Rate [ 83 From Monitor] Respiratory 9 L 10 L Rate Blood Pressure 95/57 102/56 103/58 O2 Sat by Pulse 91 89 91 Oximetry 06/19/20 06/19/20 06/19/20 04:30 04:46 05:00 Temperature Pulse Rate 128 H 140 H 122 H Pulse Rate [ Apical] Pulse Rate [ From Monitor] Respiratory 11 L 13 10 L Rate Blood Pressure 98/57 103/55 99/59 O2 Sat by Pulse 90 90 90 Oximetry 06/19/20 06/19/20 06/19/20 05:16 05:30 05:46 Temperature Pulse Rate 117 H 126 H 110 H Pulse Rate [ Apical] Pulse Rate [ From Monitor] Respiratory 11 L 12 11 L Rate Blood Pressure 109/59 106/58 105/61 O2 Sat by Pulse 89 89 91 Oximetry 06/19/20 06/19/20 06/19/20 06:00 06:16 06:30 Temperature Pulse Rate 112 H 123 H 120 H Pulse Rate [ Apical] Pulse Rate [ From Monitor] Respiratory 11 L 10 L 13 Rate Blood Pressure 104/53 103/61 107/61 O2 Sat by Pulse 91 90 89 Oximetry 06/19/20 06/19/20 06/19/20 06:46 07:00 07:16 Temperature Pulse Rate 111 H 123 H 126 H Pulse Rate [ Apical] Pulse Rate [ From Monitor] Respiratory 11 L 16 14 Rate Blood Pressure 99/58 94/60 94/64 O2 Sat by Pulse 90 87 89 Oximetry 06/19/20 06/19/20 06/19/20 07:30 07:40 07:46 Temperature Pulse Rate 115 H 130 H 122 H Pulse Rate [ Apical] Pulse Rate [ From Monitor] Respiratory 12 10 L Rate Blood Pressure 106/56 102/62 O2 Sat by Pulse 89 89 Oximetry 06/19/20 06/19/20 06/19/20 08:00 08:16 08:30 Temperature 102.4 F H Pulse Rate 115 H 139 H 121 H Pulse Rate [ Apical] Pulse Rate [ 130 H From Monitor] Respiratory 13 11 L 13 Rate Blood Pressure 98/62 92/58 97/59 O2 Sat by Pulse 89 88 90 Oximetry 06/19/20 06/19/20 06/19/20 08:46 09:00 09:16 Temperature Pulse Rate 123 H 148 H 128 H Pulse Rate [ Apical] Pulse Rate [ From Monitor] Respiratory 15 10 L 11 L Rate Blood Pressure 105/59 105/56 103/54 O2 Sat by Pulse 90 89 89 Oximetry 06/19/20 06/19/20 06/19/20 09:30 09:46 10:00 Temperature Pulse Rate 118 H 142 H 108 H Pulse Rate [ Apical] Pulse Rate [ From Monitor] Respiratory 13 12 12 Rate Blood Pressure 104/55 100/54 96/58 O2 Sat by Pulse 91 91 88 Oximetry 06/19/20 06/19/20 06/19/20 10:16 10:30 10:46 Temperature Pulse Rate 119 H 115 H 114 H Pulse Rate [ Apical] Pulse Rate [ From Monitor] Respiratory 12 11 L 14 Rate Blood Pressure 102/52 93/59 96/63 O2 Sat by Pulse 88 88 91 Oximetry 06/19/20 06/19/20 06/19/20 11:00 11:16 11:30 Temperature Pulse Rate 104 H 124 H 108 H Pulse Rate [ Apical] Pulse Rate [ From Monitor] Respiratory 14 12 12 Rate Blood Pressure 93/65 102/58 98/57 O2 Sat by Pulse 83 L 91 85 Oximetry 06/19/20 06/19/20 06/19/20 11:46 11:54 12:00 Temperature 99.5 F Pulse Rate 115 H 123 H 105 H Pulse Rate [ Apical] Pulse Rate [ 129 H From Monitor] Respiratory 19 18 Rate Blood Pressure 101/60 92/56 101/59 O2 Sat by Pulse 90 91 90 Oximetry 06/19/20 06/19/20 06/19/20 12:16 12:30 12:46 Temperature Pulse Rate 136 H 129 H 111 H Pulse Rate [ Apical] Pulse Rate [ From Monitor] Respiratory 20 13 22 Rate Blood Pressure 101/60 74/40 95/59 O2 Sat by Pulse 90 75 L 89 Oximetry 06/19/20 06/19/20 06/19/20 13:00 13:16 13:30 Temperature Pulse Rate 112 H 109 H 113 H Pulse Rate [ Apical] Pulse Rate [ From Monitor] Respiratory 21 19 18 Rate Blood Pressure 101/58 99/52 108/59 O2 Sat by Pulse 77 L 92 87 Oximetry 06/19/20 06/19/20 13:46 14:00 Temperature Pulse Rate 114 H 112 H Pulse Rate [ Apical] Pulse Rate [ From Monitor] Respiratory 22 19 Rate Blood Pressure 106/63 96/55 O2 Sat by Pulse 92 Oximetry - Labs CBC & Chem 7: 06/23/20 04:00 06/23/20 04:00 Labs: Abnormal lab results 06/18/20 06/18/20 06/18/20 Range/Units 09:00 11:58 14:43 WBC (4.5-11.0) K/mm3 Seg Neuts % (Manual) (40.0-70.0) % Lymphocytes % (Manual) (13.4-35.0) % Seg Neutrophils # Man (1.8-7.7) K/mm3 Lymphocytes # (Manual) (1.2-5.4) K/mm3 PT (12.2-14.9) Sec. INR (0.87-1.13) ABG pH 7.303 L (7.320-7.450) POC ABG pCO2 (32.0-48.0) mmHg POC ABG pO2 82.3 L (83-108) mmHg ABG Sodium 135.3 L (136.0-145.0) mmol/L ABG Glucose 215 H (65-95) mg/dL Carboxyhemoglobin 0.3 L (0.5-1.5) BUN (9-20) mg/dL Creatinine (0.8-1.3) mg/dL Glucose (75-100) mg/dL POC Glucose 209 H (70-105) mg/dL Lactic Acid (0.7-2.0) mmol/L Calcium (8.4-10.2) mg/dL Magnesium (1.7-2.3) mg/dL AST (5-40) units/L ALT (7-56) units/L Total Protein (6.3-8.2) g/dL Albumin (3.9-5) g/dL Arterial Blood Glucose 215 H (65-95) mg/dL Arterial Blood Ionized Calcium 4.2 L (4.6-5.3) mg/dL Urine Creatinine (0.1-20.0) mg/dL Urine Chloride (110-250) mmolL Coronavirus (PCR) Positive A (Negative) 06/18/20 06/18/20 06/18/20 Range/Units 15:00 17:16 19:44 WBC (4.5-11.0) K/mm3 Seg Neuts % (Manual) (40.0-70.0) % Lymphocytes % (Manual) (13.4-35.0) % Seg Neutrophils # Man (1.8-7.7) K/mm3 Lymphocytes # (Manual) (1.2-5.4) K/mm3 PT (12.2-14.9) Sec. INR (0.87-1.13) ABG pH (7.320-7.450) POC ABG pCO2 (32.0-48.0) mmHg POC ABG pO2 (83-108) mmHg ABG Sodium (136.0-145.0) mmol/L ABG Glucose (65-95) mg/dL Carboxyhemoglobin (0.5-1.5) BUN (9-20) mg/dL Creatinine (0.8-1.3) mg/dL Glucose (75-100) mg/dL POC Glucose 182 H (70-105) mg/dL Lactic Acid 3.00 H* (0.7-2.0) mmol/L Calcium (8.4-10.2) mg/dL Magnesium (1.7-2.3) mg/dL AST (5-40) units/L ALT (7-56) units/L Total Protein (6.3-8.2) g/dL Albumin (3.9-5) g/dL Arterial Blood Glucose (65-95) mg/dL Arterial Blood Ionized Calcium (4.6-5.3) mg/dL Urine Creatinine 192.4 H (0.1-20.0) mg/dL Urine Chloride 31.1 L (110-250) mmolL Coronavirus (PCR) (Negative) 06/18/20 06/18/20 06/19/20 Range/Units 20:33 23:43 04:00 WBC 31.6 H (4.5-11.0) K/mm3 Seg Neuts % (Manual) 98.0 H (40.0-70.0) % Lymphocytes % (Manual) 0.5 L (13.4-35.0) % Seg Neutrophils # Man 31.0 H (1.8-7.7) K/mm3 Lymphocytes # (Manual) 0.2 L (1.2-5.4) K/mm3 PT (12.2-14.9) Sec. INR (0.87-1.13) ABG pH (7.320-7.450) POC ABG pCO2 (32.0-48.0) mmHg POC ABG pO2 (83-108) mmHg ABG Sodium (136.0-145.0) mmol/L ABG Glucose (65-95) mg/dL Carboxyhemoglobin (0.5-1.5) BUN (9-20) mg/dL Creatinine (0.8-1.3) mg/dL Glucose (75-100) mg/dL POC Glucose 149 H (70-105) mg/dL Lactic Acid (0.7-2.0) mmol/L Calcium (8.4-10.2) mg/dL Magnesium 2.70 H (1.7-2.3) mg/dL AST (5-40) units/L ALT (7-56) units/L Total Protein (6.3-8.2) g/dL Albumin (3.9-5) g/dL Arterial Blood Glucose (65-95) mg/dL Arterial Blood Ionized Calcium (4.6-5.3) mg/dL Urine Creatinine (0.1-20.0) mg/dL Urine Chloride (110-250) mmolL Coronavirus (PCR) (Negative) 06/19/20 06/19/20 06/19/20 Range/Units 04:00 04:00 05:44 WBC (4.5-11.0) K/mm3 Seg Neuts % (Manual) (40.0-70.0) % Lymphocytes % (Manual) (13.4-35.0) % Seg Neutrophils # Man (1.8-7.7) K/mm3 Lymphocytes # (Manual) (1.2-5.4) K/mm3 PT (12.2-14.9) Sec. INR (0.87-1.13) ABG pH 7.265 L (7.320-7.450) POC ABG pCO2 51.8 H (32.0-48.0) mmHg POC ABG pO2 65.1 L (83-108) mmHg ABG Sodium (136.0-145.0) mmol/L ABG Glucose 184 H (65-95) mg/dL Carboxyhemoglobin (0.5-1.5) BUN 56 H (9-20) mg/dL Creatinine 1.6 H (0.8-1.3) mg/dL Glucose 176 H (75-100) mg/dL POC Glucose 156 H (70-105) mg/dL Lactic Acid (0.7-2.0) mmol/L Calcium 7.0 L (8.4-10.2) mg/dL Magnesium (1.7-2.3) mg/dL AST 244 H (5-40) units/L ALT 159 H (7-56) units/L Total Protein 4.9 L D (6.3-8.2) g/dL Albumin 2.5 L (3.9-5) g/dL Arterial Blood Glucose 184 H (65-95) mg/dL Arterial Blood Ionized Calcium 4.3 L (4.6-5.3) mg/dL Urine Creatinine (0.1-20.0) mg/dL Urine Chloride (110-250) mmolL Coronavirus (PCR) (Negative) 06/19/20 06/19/20 Range/Units 11:42 12:30 WBC (4.5-11.0) K/mm3 Seg Neuts % (Manual) (40.0-70.0) % Lymphocytes % (Manual) (13.4-35.0) % Seg Neutrophils # Man (1.8-7.7) K/mm3 Lymphocytes # (Manual) (1.2-5.4) K/mm3 PT 16.4 H (12.2-14.9) Sec. INR 1.32 H (0.87-1.13) ABG pH (7.320-7.450) POC ABG pCO2 (32.0-48.0) mmHg POC ABG pO2 (83-108) mmHg ABG Sodium (136.0-145.0) mmol/L ABG Glucose (65-95) mg/dL Carboxyhemoglobin (0.5-1.5) BUN (9-20) mg/dL Creatinine (0.8-1.3) mg/dL Glucose (75-100) mg/dL POC Glucose 191 H (70-105) mg/dL Lactic Acid (0.7-2.0) mmol/L Calcium (8.4-10.2) mg/dL Magnesium (1.7-2.3) mg/dL AST (5-40) units/L ALT (7-56) units/L Total Protein (6.3-8.2) g/dL Albumin (3.9-5) g/dL Arterial Blood Glucose (65-95) mg/dL Arterial Blood Ionized Calcium (4.6-5.3) mg/dL Urine Creatinine (0.1-20.0) mg/dL Urine Chloride (110-250) mmolL Coronavirus (PCR) (Negative) HEART Score - HEART Score Troponin: Troponin T < 0.010 ng/mL (0.00-0.029) 06/17/20 12:33
[2020-06-19] MEDS: REMDESIVIR 100 MG in SODIUM CHLORIDE 0.9% 250ML 250 ML IV SCH (20:39)
[2020-06-20] MEDS ORDERED: VANCOMYCIN 1,250 MG in SODIUM CHLORIDE 0.9% 250ML 250 ML IV SCH
[2020-06-20] MEDS: INSULIN REGULAR, HUMAN 100 UNITS/1 ML SUB-Q SCH ×4 (00:11→18:13)
[2020-06-20] MEDS: NORepinephrine/NS 4 MG-250 ML 4 MG/250 ML BAG IV SCH ×5 (02:55→19:51)
[2020-06-20] MEDS: VASOPRESSIN 20 UNIT in SODIUM CHLORIDE 0.9% 100 ML IV SCH ×2 (02:55→14:18)
[2020-06-20] MEDS: fentaNYL DRIP Premix 2,000 MCG/100 ML BAG IV SCH ×5 (02:56→19:58)
[2020-06-20] MEDS: HEPARIN/ 0.45% NACL DRIP 25,000 UNIT/500 ML BAG IV SCH ×2 (04:52→22:30)
[2020-06-20 09:09] LABS: Albumin 1.5 g/dL (3.9-5)
[2020-06-20 09:12] LABS: Calcium 5.5 mg/dL (8.4-10.2)
[2020-06-20] MEDS: CEFEPIME/NS 2 GM/100 ML 2 GM/100 ML BAG IV SCH (09:27)
[2020-06-20] MEDS: CHOLECALCIFEROL (VIT D3) 1000 UNIT (25 mcg) TAB PO SCH ×2 (09:31→11:32)
[2020-06-20] MEDS: ZINC SULFATE 220 MG CAP PO SCH ×3 (09:31→21:30)
[2020-06-20] MEDS: ASCORBIC ACID 250 MG TAB PO SCH ×3 (09:31→21:30)
[2020-06-20] MEDS: dexAMETHasone 4 MG/ML VIAL IV SCH ×2 (09:32→21:31)
--- NOTE | 2020-06-20 10:30 | Progress Note ---
Assessment and Plan Acute hypoxemic respiratory failure due to COVID-19 Severe COVID infection Severe Sepsis with shock Bilateral pneumonia Acute kidney injury (GIRISH) with acute tubular necrosis (ATN) Elevated liver enzymes Obesity - reduced FiO2 to 90% - continue daily proning for > 12 hours - changed tube feeds to Nepro per value engineer's rec's - follow lower extremity dopplers r/o DVT - continue care as below otherwise; - rate control per cardiology team for afib RVR - Antibiotics per ID, on going fevers (Cefepime) - Continue to wean supplemental oxygen for O2 sats >92% - Monitor blood pressure closely while optimizing sedation,wean vasopressor support for MAP > 65 mmHg - Critical care prone positioning - Agitation management, keep RASS -4 to allow for critical proning - VAP bundle addressed, aspiration precautions HOB >40 - continue lung protective strategies, permissive hypercapnic acceptable. - continue bronchodilators with pulmonary hygiene per RT - wean per pulmonary driven protocols otherwise - accuchecks with glycemic control per SSI (While critically ill target blood glucose of 140-180 mg/dL; avoid hypoglycemia) - sedation prn for target RASS -1 to -2 - continue enteral nutritional support at goal rate as tolerated - Monitor liver function test ,avoid hepatotoxic agents - Avoid nephrotoxins, renally dose all medications, conservative fluid management - continue to avoid benzodiazepines, reduce the possibility of delirium, - prn analgesia per CPOT score - Maintenance of sleep-wake cycle, avoid delirium - Stress ulcer prophylaxis, Famotidine - PT/OT/ROM exercises - Mobility protocols for pressure ulcer prevention - CXR, ABG in am - CBC, CMP in am - Supportive transfusions to keep HgB >7g/dL - Monitor hemodynamics closely - continue other care per attending / other consultants COVID SPECIFIC INTERVENTIONS - continue steroids: Dexamethasone - continue with Remdesivir - monitor inflammatory markers - ferritin, D-dimer, CRP, LDH every 3 days per facility protocol - continue anticoagulation per System Protocol based on d-dimer - continue contact and airborne isolation CONDITION: CRITICAL PROGNOSIS: GUARDED CODE STATUS: FULL CODE The high probability of a clinically significant, sudden or life-threatening deterioration of the [respiratory, cardiovascular, hematologic & neurologic] system(s) required my full and direct attention, intervention and personal management. The aggregate critical care time was [35] minutes without overlap. Time includes spent on; [x] Data Review and interpretation [x] Patient assessment and monitoring of vital signs [x] Documentation [x] Medication orders and management He was evaluated in the context of the global COVID-19 pandemic, which necessitated consideration that the patient might be at risk for infection with the virus that causes COVID-19. Institutional protocols and algorithms that pertain to the evaluation of patients at risk for COVID-19 are in a state of rapid change based on information released by regulatory bodies including the CDC and federal and state organizations. These policies and algorithms were followed during the patient's care in the ICU Please note that these policies, procedures and recommendations changed on a rapid basis. Subjective Date of service: 06/20/20 Principal diagnosis: ARF/Septic Shock/COVID-19 PNA, AF with RVR Interval history: Patient is seen today for: Ac hypoxemic respiratory failure; COVID-19; Severe Sepsis with shock; Zackery. pneumonia; GIRISH; Elevated liver enzymes; Obesity Seen and examined at bedside; 24hour events reviewed; nursing and respiratory care staff consulted; no adverse overnight events reported to me; resting in bed; remains opn MVS; AMS is persistent; remains on 100% FiO2 but some room to wean; in prone position Objective Vital Signs - 12hr 06/19/20 06/19/20 06/19/20 22:30 22:46 23:00 Temperature Pulse Rate 99 H 100 H 88 Pulse Rate [ From Monitor] Respiratory 30 H 30 H 30 H Rate Blood Pressure 114/65 104/61 101/61 O2 Sat by Pulse 97 99 97 Oximetry 06/19/20 06/19/20 06/19/20 23:16 23:30 23:46 Temperature Pulse Rate 92 H 100 H 96 H Pulse Rate [ From Monitor] Respiratory 29 H 30 H 30 H Rate Blood Pressure 91/67 106/63 104/66 O2 Sat by Pulse 98 98 99 Oximetry 06/19/20 06/20/20 06/20/20 23:57 00:00 00:04 Temperature 97.5 F L Pulse Rate 99 H 93 H 99 H Pulse Rate [ 86 From Monitor] Respiratory 30 H 30 H Rate Blood Pressure 99/64 109/65 109/65 O2 Sat by Pulse 98 97 98 Oximetry 06/20/20 06/20/20 06/20/20 00:16 00:30 00:46 Temperature Pulse Rate 94 H 96 H 105 H Pulse Rate [ From Monitor] Respiratory 30 H 30 H 30 H Rate Blood Pressure 109/62 107/63 108/59 O2 Sat by Pulse 91 97 99 Oximetry 06/20/20 06/20/20 06/20/20 01:00 01:16 01:30 Temperature Pulse Rate 103 H 102 H 98 H Pulse Rate [ From Monitor] Respiratory 30 H 31 H 31 H Rate Blood Pressure 109/71 106/61 96/60 O2 Sat by Pulse 97 99 97 Oximetry 06/20/20 06/20/20 06/20/20 01:46 02:00 02:16 Temperature Pulse Rate 105 H 97 H 93 H Pulse Rate [ From Monitor] Respiratory 31 H 30 H 30 H Rate Blood Pressure 101/63 109/63 108/67 O2 Sat by Pulse 99 97 99 Oximetry 06/20/20 06/20/20 06/20/20 02:30 02:46 03:00 Temperature Pulse Rate 96 H 90 94 H Pulse Rate [ From Monitor] Respiratory 30 H 30 H 29 H Rate Blood Pressure 102/65 92/68 93/63 O2 Sat by Pulse 97 99 97 Oximetry 06/20/20 06/20/20 06/20/20 03:16 03:30 03:46 Temperature Pulse Rate 90 91 H 102 H Pulse Rate [ From Monitor] Respiratory 30 H 30 H 26 H Rate Blood Pressure 98/62 111/62 107/62 O2 Sat by Pulse 99 97 99 Oximetry 06/20/20 06/20/20 06/20/20 03:54 04:00 04:15 Temperature 97.4 F L Pulse Rate 102 H 94 H 91 H Pulse Rate [ 95 H From Monitor] Respiratory 0 L 7 L Rate Blood Pressure 91/55 103/64 112/61 O2 Sat by Pulse 99 97 97 Oximetry 06/20/20 06/20/20 06/20/20 04:30 04:45 05:00 Temperature Pulse Rate 92 H 85 101 H Pulse Rate [ From Monitor] Respiratory 0 L 9 L 30 H Rate Blood Pressure 100/64 112/64 109/63 O2 Sat by Pulse 97 97 97 Oximetry 06/20/20 06/20/20 06/20/20 05:15 05:30 05:45 Temperature Pulse Rate 99 H 91 H 86 Pulse Rate [ From Monitor] Respiratory 30 H 30 H 30 H Rate Blood Pressure 102/64 108/62 110/61 O2 Sat by Pulse 97 98 97 Oximetry 06/20/20 06/20/20 06/20/20 06:00 06:15 06:30 Temperature Pulse Rate 91 H 85 105 H Pulse Rate [ From Monitor] Respiratory 30 H 30 H 30 H Rate Blood Pressure 109/64 100/64 110/67 O2 Sat by Pulse 97 97 Oximetry 06/20/20 06/20/20 06/20/20 06:45 07:00 07:15 Temperature Pulse Rate 101 H 82 88 Pulse Rate [ From Monitor] Respiratory 30 H 30 H 30 H Rate Blood Pressure 118/61 101/60 106/65 O2 Sat by Pulse 97 97 97 Oximetry 06/20/20 06/20/20 06/20/20 07:30 07:45 07:47 Temperature Pulse Rate 101 H 96 H 98 H Pulse Rate [ From Monitor] Respiratory 30 H 30 H Rate Blood Pressure 104/66 93/66 O2 Sat by Pulse 97 97 Oximetry 06/20/20 06/20/20 06/20/20 07:48 07:59 08:00 Temperature Pulse Rate 99 H 93 H Pulse Rate [ 98 H From Monitor] Respiratory 30 H 30 H Rate Blood Pressure 97/64 97/64 O2 Sat by Pulse 99 99 97 Oximetry 06/20/20 06/20/20 06/20/20 08:15 08:30 08:45 Temperature Pulse Rate 98 H 103 H 90 Pulse Rate [ From Monitor] Respiratory 30 H 30 H 30 H Rate Blood Pressure 105/65 110/68 103/61 O2 Sat by Pulse 97 97 97 Oximetry 06/20/20 06/20/20 06/20/20 09:00 09:15 09:30 Temperature Pulse Rate 99 H 100 H 107 H Pulse Rate [ From Monitor] Respiratory 30 H 30 H 30 H Rate Blood Pressure 109/62 113/60 98/56 O2 Sat by Pulse 97 98 96 Oximetry 06/20/20 06/20/20 09:45 10:00 Temperature Pulse Rate 99 H 90 Pulse Rate [ From Monitor] Respiratory 30 H 30 H Rate Blood Pressure 99/56 94/59 O2 Sat by Pulse 98 98 Oximetry Constitutional: no acute distress, other (morbidly obese, atraumatic, normocephalic, well sedated) Eyes: non-icteric Neck: supple, no lymphadenopathy, other (Large , short neck) Effort: mildly labored Ascultation: Bilateral: diminished breath sounds, rhonchi (scant) Percussion: Bilateral: not dull Cardiovascular: irregular rhythm, other (S1,S2) Gastrointestinal: normoactive bowel sounds, soft, non-tender, non-distended Integumentary: rash, other (Femoral CVC, Newell catheter) Extremities: no cyanosis, no edema, pulses normal, no ischemia or petechiae Neurologic: other (unable to assess, sedated) Psychiatric: other (unable to assess, sedated) CBC and BMP: 06/19/20 12:30 06/20/20 08:25 ABG, PT/INR, D-dimer: ABG ABG pH 7.088 (7.320-7.450) L 06/19/20 18:36 POC ABG pCO2 78.1 mmHg (32.0-48.0) H 06/19/20 18:36 POC ABG pO2 208.3 mmHg (83-108) H 06/19/20 18:36 POC ABG HCO3 23.1 06/19/20 18:36 PT/INR, D-dimer PT 16.4 Sec. (12.2-14.9) H 06/19/20 12:30 INR 1.32 (0.87-1.13) H 06/19/20 12:30 D-Dimer 939.89 ng/mlDDU (0-234) H 06/17/20 14:48 Abnormal lab findings: Abnormal Labs 06/17/20 06/17/20 06/17/20 12:33 12:33 12:33 WBC 19.5 H RBC 5.18 H Hgb 15.5 H Lymph % (Auto) 3.8 L Lymph # (Auto) 0.7 L Seg Neuts % (Manual) 99.0 H Lymphocytes % (Manual) 1.0 L Seg Neutrophils # 18.2 H Seg Neutrophils # Man 19.3 H Lymphocytes # (Manual) 0.2 L Monocytes # (Manual) PT 16.5 H INR 1.33 H D-Dimer 1025.04 H Heparin Anti-Xa Level ABG pH POC ABG pCO2 POC ABG pO2 ABG Oxyhemoglobin ABG Sodium ABG Potassium ABG Glucose Carboxyhemoglobin Sodium 130 L Potassium 3.4 L Chloride 95.0 L Carbon Dioxide BUN 21 H Creatinine Glucose 137 H POC Glucose Lactic Acid Calcium 7.9 L Magnesium Ferritin AST 84 H ALT 67 H Lactate Dehydrogenase 437 H Total Creatine Kinase 310 H C-Reactive Protein 27.90 H Total Protein Albumin 2.9 L Arterial Blood Glucose Arterial Blood Ionized Calcium Urine Creatinine Urine Chloride Vancomycin Trough Coronavirus (PCR) 06/17/20 06/17/20 06/17/20 12:33 12:33 14:48 WBC RBC Hgb Lymph % (Auto) Lymph # (Auto) Seg Neuts % (Manual) Lymphocytes % (Manual) Seg Neutrophils # Seg Neutrophils # Man Lymphocytes # (Manual) Monocytes # (Manual) PT INR D-Dimer Heparin Anti-Xa Level ABG pH POC ABG pCO2 POC ABG pO2 ABG Oxyhemoglobin ABG Sodium ABG Potassium ABG Glucose Carboxyhemoglobin Sodium Potassium Chloride Carbon Dioxide BUN Creatinine Glucose POC Glucose Lactic Acid 2.50 H* 2.20 H* Calcium Magnesium Ferritin 2297.0 H AST ALT Lactate Dehydrogenase Total Creatine Kinase C-Reactive Protein Total Protein Albumin Arterial Blood Glucose Arterial Blood Ionized Calcium Urine Creatinine Urine Chloride Vancomycin Trough Coronavirus (PCR) 06/17/20 06/17/20 06/17/20 14:48 14:48 14:48 WBC RBC Hgb Lymph % (Auto) Lymph # (Auto) Seg Neuts % (Manual) Lymphocytes % (Manual) Seg Neutrophils # Seg Neutrophils # Man Lymphocytes # (Manual) Monocytes # (Manual) PT INR D-Dimer 939.89 H Heparin Anti-Xa Level ABG pH POC ABG pCO2 POC ABG pO2 ABG Oxyhemoglobin ABG Sodium ABG Potassium ABG Glucose Carboxyhemoglobin Sodium Potassium Chloride Carbon Dioxide BUN Creatinine Glucose 141 H POC Glucose Lactic Acid Calcium Magnesium Ferritin > 2000.0 H AST ALT Lactate Dehydrogenase 503 H Total Creatine Kinase C-Reactive Protein 24.70 H Total Protein Albumin Arterial Blood Glucose Arterial Blood Ionized Calcium Urine Creatinine Urine Chloride Vancomycin Trough Coronavirus (PCR) 06/17/20 06/17/20 06/17/20 16:54 19:39 23:43 WBC RBC Hgb Lymph % (Auto) Lymph # (Auto) Seg Neuts % (Manual) Lymphocytes % (Manual) Seg Neutrophils # Seg Neutrophils # Man Lymphocytes # (Manual) Monocytes # (Manual) PT INR D-Dimer Heparin Anti-Xa Level ABG pH 7.571 H POC ABG pCO2 24.3 L POC ABG pO2 41.6 L ABG Oxyhemoglobin 84.0 L ABG Sodium 131.0 L ABG Potassium ABG Glucose 163 H Carboxyhemoglobin Sodium Potassium Chloride Carbon Dioxide BUN Creatinine Glucose POC Glucose 185 H Lactic Acid 2.10 H* Calcium Magnesium Ferritin AST ALT Lactate Dehydrogenase Total Creatine Kinase C-Reactive Protein Total Protein Albumin Arterial Blood Glucose 163 H Arterial Blood Ionized Calcium 4.4 L Urine Creatinine Urine Chloride Vancomycin Trough Coronavirus (PCR) 06/18/20 06/18/20 06/18/20 00:17 00:23 03:55 WBC RBC Hgb Lymph % (Auto) Lymph # (Auto) Seg Neuts % (Manual) Lymphocytes % (Manual) Seg Neutrophils # Seg Neutrophils # Man Lymphocytes # (Manual) Monocytes # (Manual) PT INR D-Dimer Heparin Anti-Xa Level ABG pH POC ABG pCO2 POC ABG pO2 56.5 L 48.3 L ABG Oxyhemoglobin 86.3 L 81.7 L ABG Sodium 132.9 L 131.0 L ABG Potassium ABG Glucose 189 H 161 H Carboxyhemoglobin 0.4 L Sodium Potassium Chloride Carbon Dioxide BUN Creatinine Glucose POC Glucose Lactic Acid 3.80 H* Calcium Magnesium Ferritin AST ALT Lactate Dehydrogenase Total Creatine Kinase C-Reactive Protein Total Protein Albumin Arterial Blood Glucose 189 H 161 H Arterial Blood Ionized Calcium 4.3 L 4.2 L Urine Creatinine Urine Chloride Vancomycin Trough Coronavirus (PCR) 06/18/20 06/18/20 06/18/20 05:39 05:39 05:39 WBC 26.2 H RBC Hgb Lymph % (Auto) Lymph # (Auto) Seg Neuts % (Manual) 90.0 H Lymphocytes % (Manual) 5.0 L Seg Neutrophils # Seg Neutrophils # Man 23.6 H Lymphocytes # (Manual) Monocytes # (Manual) 1.3 H PT INR D-Dimer Heparin Anti-Xa Level ABG pH POC ABG pCO2 POC ABG pO2 ABG Oxyhemoglobin ABG Sodium ABG Potassium ABG Glucose Carboxyhemoglobin Sodium 135 L Potassium Chloride 97.5 L Carbon Dioxide 21 L BUN 39 H Creatinine 1.7 H D Glucose 168 H POC Glucose Lactic Acid 3.40 H* Calcium 7.2 L Magnesium Ferritin AST ALT Lactate Dehydrogenase Total Creatine Kinase C-Reactive Protein Total Protein Albumin Arterial Blood Glucose Arterial Blood Ionized Calcium Urine Creatinine Urine Chloride Vancomycin Trough Coronavirus (PCR) 06/18/20 06/18/20 06/18/20 07:24 09:00 10:10 WBC RBC Hgb Lymph % (Auto) Lymph # (Auto) Seg Neuts % (Manual) Lymphocytes % (Manual) Seg Neutrophils # Seg Neutrophils # Man Lymphocytes # (Manual) Monocytes # (Manual) PT INR D-Dimer Heparin Anti-Xa Level ABG pH POC ABG pCO2 POC ABG pO2 ABG Oxyhemoglobin ABG Sodium ABG Potassium ABG Glucose Carboxyhemoglobin Sodium Potassium Chloride Carbon Dioxide BUN Creatinine Glucose POC Glucose Lactic Acid 2.90 H* 3.20 H* Calcium Magnesium Ferritin AST ALT Lactate Dehydrogenase Total Creatine Kinase C-Reactive Protein Total Protein Albumin Arterial Blood Glucose Arterial Blood Ionized Calcium Urine Creatinine Urine Chloride Vancomycin Trough Coronavirus (PCR) Positive A 06/18/20 06/18/20 06/18/20 11:58 14:43 15:00 WBC RBC Hgb Lymph % (Auto) Lymph # (Auto) Seg Neuts % (Manual) Lymphocytes % (Manual) Seg Neutrophils # Seg Neutrophils # Man Lymphocytes # (Manual) Monocytes # (Manual) PT INR D-Dimer Heparin Anti-Xa Level ABG pH 7.303 L POC ABG pCO2 POC ABG pO2 82.3 L ABG Oxyhemoglobin ABG Sodium 135.3 L ABG Potassium ABG Glucose 215 H Carboxyhemoglobin 0.3 L Sodium Potassium Chloride Carbon Dioxide BUN Creatinine Glucose POC Glucose 209 H Lactic Acid Calcium Magnesium Ferritin AST ALT Lactate Dehydrogenase Total Creatine Kinase C-Reactive Protein Total Protein Albumin Arterial Blood Glucose 215 H Arterial Blood Ionized Calcium 4.2 L Urine Creatinine 192.4 H Urine Chloride 31.1 L Vancomycin Trough Coronavirus (PCR) 06/18/20 06/18/20 06/18/20 17:16 19:44 20:33 WBC RBC Hgb Lymph % (Auto) Lymph # (Auto) Seg Neuts % (Manual) Lymphocytes % (Manual) Seg Neutrophils # Seg Neutrophils # Man Lymphocytes # (Manual) Monocytes # (Manual) PT INR D-Dimer Heparin Anti-Xa Level ABG pH POC ABG pCO2 POC ABG pO2 ABG Oxyhemoglobin ABG Sodium ABG Potassium ABG Glucose Carboxyhemoglobin Sodium Potassium Chloride Carbon Dioxide BUN Creatinine Glucose POC Glucose 182 H Lactic Acid 3.00 H* Calcium Magnesium 2.70 H Ferritin AST ALT Lactate Dehydrogenase Total Creatine Kinase C-Reactive Protein Total Protein Albumin Arterial Blood Glucose Arterial Blood Ionized Calcium Urine Creatinine Urine Chloride Vancomycin Trough Coronavirus (PCR) 06/18/20 06/19/20 06/19/20 23:43 04:00 04:00 WBC 31.6 H RBC Hgb Lymph % (Auto) Lymph # (Auto) Seg Neuts % (Manual) 98.0 H Lymphocytes % (Manual) 0.5 L Seg Neutrophils # Seg Neutrophils # Man 31.0 H Lymphocytes # (Manual) 0.2 L Monocytes # (Manual) PT INR D-Dimer Heparin Anti-Xa Level ABG pH POC ABG pCO2 POC ABG pO2 ABG Oxyhemoglobin ABG Sodium ABG Potassium ABG Glucose Carboxyhemoglobin Sodium Potassium Chloride Carbon Dioxide BUN 56 H Creatinine 1.6 H Glucose 176 H POC Glucose 149 H Lactic Acid Calcium 7.0 L Magnesium Ferritin AST 244 H ALT 159 H Lactate Dehydrogenase Total Creatine Kinase C-Reactive Protein Total Protein 4.9 L D Albumin 2.5 L Arterial Blood Glucose Arterial Blood Ionized Calcium Urine Creatinine Urine Chloride Vancomycin Trough Coronavirus (PCR) 06/19/20 06/19/20 06/19/20 04:00 05:44 11:42 WBC RBC Hgb Lymph % (Auto) Lymph # (Auto) Seg Neuts % (Manual) Lymphocytes % (Manual) Seg Neutrophils # Seg Neutrophils # Man Lymphocytes # (Manual) Monocytes # (Manual) PT INR D-Dimer Heparin Anti-Xa Level ABG pH 7.265 L POC ABG pCO2 51.8 H POC ABG pO2 65.1 L ABG Oxyhemoglobin ABG Sodium ABG Potassium ABG Glucose 184 H Carboxyhemoglobin Sodium Potassium Chloride Carbon Dioxide BUN Creatinine Glucose POC Glucose 156 H 191 H Lactic Acid Calcium Magnesium Ferritin AST ALT Lactate Dehydrogenase Total Creatine Kinase C-Reactive Protein Total Protein Albumin Arterial Blood Glucose 184 H Arterial Blood Ionized Calcium 4.3 L Urine Creatinine Urine Chloride Vancomycin Trough Coronavirus (PCR) 06/19/20 06/19/20 06/19/20 12:30 17:16 18:36 WBC RBC Hgb Lymph % (Auto) Lymph # (Auto) Seg Neuts % (Manual) Lymphocytes % (Manual) Seg Neutrophils # Seg Neutrophils # Man Lymphocytes # (Manual) Monocytes # (Manual) PT 16.4 H INR 1.32 H D-Dimer Heparin Anti-Xa Level ABG pH 7.088 L POC ABG pCO2 78.1 H POC ABG pO2 208.3 H ABG Oxyhemoglobin 98.3 H ABG Sodium ABG Potassium 5.0 H ABG Glucose 182 H Carboxyhemoglobin 0.4 L Sodium Potassium Chloride Carbon Dioxide BUN Creatinine Glucose POC Glucose 154 H Lactic Acid Calcium Magnesium Ferritin AST ALT Lactate Dehydrogenase Total Creatine Kinase C-Reactive Protein Total Protein Albumin Arterial Blood Glucose 182 H Arterial Blood Ionized Calcium 4.3 L Urine Creatinine Urine Chloride Vancomycin Trough Coronavirus (PCR) 06/19/20 06/20/20 06/20/20 23:32 03:00 05:19 WBC RBC Hgb Lymph % (Auto) Lymph # (Auto) Seg Neuts % (Manual) Lymphocytes % (Manual) Seg Neutrophils # Seg Neutrophils # Man Lymphocytes # (Manual) Monocytes # (Manual) PT INR D-Dimer Heparin Anti-Xa Level 0.77 H ABG pH POC ABG pCO2 POC ABG pO2 ABG Oxyhemoglobin ABG Sodium ABG Potassium ABG Glucose Carboxyhemoglobin Sodium Potassium Chloride Carbon Dioxide BUN Creatinine Glucose POC Glucose 201 H 190 H Lactic Acid Calcium Magnesium Ferritin AST ALT Lactate Dehydrogenase Total Creatine Kinase C-Reactive Protein Total Protein Albumin Arterial Blood Glucose Arterial Blood Ionized Calcium Urine Creatinine Urine Chloride Vancomycin Trough Coronavirus (PCR) 06/20/20 06/20/20 08:25 08:25 WBC RBC Hgb Lymph % (Auto) Lymph # (Auto) Seg Neuts % (Manual) Lymphocytes % (Manual) Seg Neutrophils # Seg Neutrophils # Man Lymphocytes # (Manual) Monocytes # (Manual) PT INR D-Dimer Heparin Anti-Xa Level ABG pH POC ABG pCO2 POC ABG pO2 ABG Oxyhemoglobin ABG Sodium ABG Potassium ABG Glucose Carboxyhemoglobin Sodium 135 L Potassium 5.4 H Chloride 109.2 H Carbon Dioxide 19 L BUN 68 H Creatinine 2.5 H D Glucose 201 H POC Glucose Lactic Acid Calcium 5.5 L* D Magnesium Ferritin AST 123 H ALT 86 H Lactate Dehydrogenase Total Creatine Kinase C-Reactive Protein Total Protein 4.6 L Albumin 1.5 L Arterial Blood Glucose Arterial Blood Ionized Calcium Urine Creatinine Urine Chloride Vancomycin Trough 22.7 H Coronavirus (PCR) Chest x-ray: image reviewed (bilateral basilar predominant infiltrates) Allied health notes reviewed: nursing
[2020-06-20] MEDS: D5W/0.9% NACL 1,000 ML IV SCH (11:30)
--- NOTE | 2020-06-20 12:27 | Progress Note ---
Assessment and Plan Cultures: SARS CoV2 PCR: Positive as outpatient Blood culture: no growth Sputum culture: no rowth A/P: 59-year-old male with obesity, obesity hypoventilation syndrome: #Severe sepsis with septic shock: likely secondary to critical COVID-19 pneumonia. Blood cultures so far negative. ?Bacterial pneumonia component. #Critical COVID-19 pneumonia: Procalcitonin is also high, treat with empiric antibiotics. #Acute hypoxic respiratory failure: on the vent, prone ventilation. #Transaminitis: Likely secondary to COVID-19. #GIRISH: Worsening Recs: -Continue steroids for at least total 10 days -Continue remdesivir, hold off if CrCl<30 -Continue empiric IV Cefepime, Vancomycin, renally dosed -prophylactic anticoagulation based on d-dimer per hospital protocol -trend ferritin, LDH, d-dimer, CRP every 2-3 days for risk stratification and to assess disease progression -poor prognosis Tj Fajardo MD, FACP [facility], [place], [facility] ([facility] O: [phone] F: [phone] Subjective Date of service: 06/20/20 Principal diagnosis: ARF/Septic Shock/COVID-19 PNA, AF with RVR Interval history: No fever. Now on prone ventilation. Objective - Exam Narrative Exam: Physical Exam (reviewed in chart to minimize risk of transmission) Constitutional: deferred Head, Ears, Nose: deferred Eyes: deferred Neck: deferred Oral: deferred Cardiovascular: deferred Respiratory: deferred GI: deferred Musculoskeletal: deferred Skin: deferred Hem/Lymphatic: deferred Psych: deferred Neurological: deferred - Constitutional Vitals: Vital Signs Temp Pulse Resp BP Pulse Ox 97.7 F 97 H 30 H 95/61 99 06/20/20 12:00 06/20/20 12:00 06/20/20 12:00 06/20/20 12:00 06/20/20 12:00 Temperature -Last 24 Hours Temperature 97.7 F Temperature 97.3 F Temperature 97.4 F Temperature 97.5 F Temperature 97.8 F Temperature 98.9 F - Labs CBC & Chem 7: 06/19/20 12:30 06/20/20 08:25 Labs: Abnormal lab results 06/19/20 06/19/20 06/19/20 Range/Units 12:30 17:16 18:36 PT 16.4 H (12.2-14.9) Sec. INR 1.32 H (0.87-1.13) Heparin Anti-Xa Level (0.3-0.7) U.I./ml ABG pH 7.088 L (7.320-7.450) POC ABG pCO2 78.1 H (32.0-48.0) mmHg POC ABG pO2 208.3 H (83-108) mmHg ABG Oxyhemoglobin 98.3 H (94-98) ABG Potassium 5.0 H (3.40-4.50) mmol/L ABG Glucose 182 H (65-95) mg/dL Carboxyhemoglobin 0.4 L (0.5-1.5) Sodium (137-145) mmol/L Potassium (3.6-5.0) mmol/L Chloride (98-107) mmol/L Carbon Dioxide (22-30) mmol/L BUN (9-20) mg/dL Creatinine (0.8-1.3) mg/dL Glucose (75-100) mg/dL POC Glucose 154 H (70-105) mg/dL Calcium (8.4-10.2) mg/dL AST (5-40) units/L ALT (7-56) units/L Total Protein (6.3-8.2) g/dL Albumin (3.9-5) g/dL Arterial Blood Glucose 182 H (65-95) mg/dL Arterial Blood Ionized Calcium 4.3 L (4.6-5.3) mg/dL Vancomycin Trough (5.0-20.0) ug/mL 06/19/20 06/20/20 06/20/20 Range/Units 23:32 03:00 05:19 PT (12.2-14.9) Sec. INR (0.87-1.13) Heparin Anti-Xa Level 0.77 H (0.3-0.7) U.I./ml ABG pH (7.320-7.450) POC ABG pCO2 (32.0-48.0) mmHg POC ABG pO2 (83-108) mmHg ABG Oxyhemoglobin (94-98) ABG Potassium (3.40-4.50) mmol/L ABG Glucose (65-95) mg/dL Carboxyhemoglobin (0.5-1.5) Sodium (137-145) mmol/L Potassium (3.6-5.0) mmol/L Chloride (98-107) mmol/L Carbon Dioxide (22-30) mmol/L BUN (9-20) mg/dL Creatinine (0.8-1.3) mg/dL Glucose (75-100) mg/dL POC Glucose 201 H 190 H (70-105) mg/dL Calcium (8.4-10.2) mg/dL AST (5-40) units/L ALT (7-56) units/L Total Protein (6.3-8.2) g/dL Albumin (3.9-5) g/dL Arterial Blood Glucose (65-95) mg/dL Arterial Blood Ionized Calcium (4.6-5.3) mg/dL Vancomycin Trough (5.0-20.0) ug/mL 06/20/20 06/20/20 06/20/20 Range/Units 08:25 08:25 11:40 PT (12.2-14.9) Sec. INR (0.87-1.13) Heparin Anti-Xa Level 0.89 H (0.3-0.7) U.I./ml ABG pH (7.320-7.450) POC ABG pCO2 (32.0-48.0) mmHg POC ABG pO2 (83-108) mmHg ABG Oxyhemoglobin (94-98) ABG Potassium (3.40-4.50) mmol/L ABG Glucose (65-95) mg/dL Carboxyhemoglobin (0.5-1.5) Sodium 135 L (137-145) mmol/L Potassium 5.4 H (3.6-5.0) mmol/L Chloride 109.2 H (98-107) mmol/L Carbon Dioxide 19 L (22-30) mmol/L BUN 68 H (9-20) mg/dL Creatinine 2.5 H D (0.8-1.3) mg/dL Glucose 201 H (75-100) mg/dL POC Glucose (70-105) mg/dL Calcium 5.5 L* D (8.4-10.2) mg/dL AST 123 H (5-40) units/L ALT 86 H (7-56) units/L Total Protein 4.6 L (6.3-8.2) g/dL Albumin 1.5 L (3.9-5) g/dL Arterial Blood Glucose (65-95) mg/dL Arterial Blood Ionized Calcium (4.6-5.3) mg/dL Vancomycin Trough 22.7 H (5.0-20.0) ug/mL - Imaging and cardiology Chest x-ray: report reviewed, image reviewed (Slight interval improvement. ET tube +)
[2020-06-20] MEDS: FAMOTIDINE 20 MG/2 ML INJ IV SCH (12:49)
--- NOTE | 2020-06-20 14:18 | Progress Note ---
Assessment and Plan - Patient Problems (1) Acute renal failure Current Visit: Yes Status: Acute Plan to address problem: Likely prerenal in nature secondary to new onset of COVID-19 pneumonia with worsening sepsis and hypotension. Concern for acute tubular necrosis. He has become now progressively more oliguric. I am concerned that his acute tubular necrosis is worsening at this time. Renal function has shown worsening. Labs reviewed this morning. He is continuing on D5 half-normal saline at 75 cc an hour. I will give him a dose of Lasix 60 mg IV twice daily to see if he will start to increase overall urine output. His respiratory status continues to be poor as he remains intubated with an FiO2 of 90%. He is prone at this time. No acute indications for renal placement therapy but if within the next 24 hours renal function continues to worsen he will likely need to be started. (2) Pneumonia due to COVID-19 virus Current Visit: Yes Status: Acute Plan to address problem: Management per infectious disease recommendations. (3) Acute respiratory failure with hypoxia Current Visit: Yes Status: Acute Plan to address problem: Patient currently intubated at this time. Vent management per pulmonology recommendations. (4) Hypokalemia Current Visit: Yes Status: Acute Plan to address problem: Now showing evidence of hyperkalemia. Will give dose of Lasix today to increase potassium secretion. Subjective Date of service: 06/20/20 Principal diagnosis: ARF/Septic Shock/COVID-19 PNA, AF with RVR Interval history: Renal function is showing worsening at this time along with progressively worsening oliguria. He has only produced approximately 100 cc of urine output since this morning. Newell catheter is in place this time. He remains on 2 pressors at this time. We will give a trial of Lasix to see if we can increase his urine output and clearance. Remains intubated. Objective - Exam Narrative Exam: Not directly examined in order to preserve PPE. - Vital Signs Vital signs: Vital Signs - 12hr 06/20/20 06/20/20 06/20/20 02:16 02:30 02:46 Temperature Pulse Rate 93 H 96 H 90 Pulse Rate [ From Monitor] Respiratory 30 H 30 H 30 H Rate Blood Pressure 108/67 102/65 92/68 O2 Sat by Pulse 99 97 99 Oximetry 06/20/20 06/20/20 06/20/20 03:00 03:16 03:30 Temperature Pulse Rate 94 H 90 91 H Pulse Rate [ From Monitor] Respiratory 29 H 30 H 30 H Rate Blood Pressure 93/63 98/62 111/62 O2 Sat by Pulse 97 99 97 Oximetry 06/20/20 06/20/20 06/20/20 03:46 03:54 04:00 Temperature 97.4 F L Pulse Rate 102 H 102 H 94 H Pulse Rate [ 95 H From Monitor] Respiratory 26 H 0 L Rate Blood Pressure 107/62 91/55 103/64 O2 Sat by Pulse 99 99 97 Oximetry 06/20/20 06/20/20 06/20/20 04:15 04:30 04:45 Temperature Pulse Rate 91 H 92 H 85 Pulse Rate [ From Monitor] Respiratory 7 L 0 L 9 L Rate Blood Pressure 112/61 100/64 112/64 O2 Sat by Pulse 97 97 97 Oximetry 06/20/20 06/20/20 06/20/20 05:00 05:15 05:30 Temperature Pulse Rate 101 H 99 H 91 H Pulse Rate [ From Monitor] Respiratory 30 H 30 H 30 H Rate Blood Pressure 109/63 102/64 108/62 O2 Sat by Pulse 97 97 98 Oximetry 06/20/20 06/20/20 06/20/20 05:45 06:00 06:15 Temperature Pulse Rate 86 91 H 85 Pulse Rate [ From Monitor] Respiratory 30 H 30 H 30 H Rate Blood Pressure 110/61 109/64 100/64 O2 Sat by Pulse 97 97 Oximetry 06/20/20 06/20/20 06/20/20 06:30 06:45 07:00 Temperature Pulse Rate 105 H 101 H 82 Pulse Rate [ From Monitor] Respiratory 30 H 30 H 30 H Rate Blood Pressure 110/67 118/61 101/60 O2 Sat by Pulse 97 97 97 Oximetry 06/20/20 06/20/20 06/20/20 07:15 07:30 07:45 Temperature Pulse Rate 88 101 H 96 H Pulse Rate [ From Monitor] Respiratory 30 H 30 H 30 H Rate Blood Pressure 106/65 104/66 93/66 O2 Sat by Pulse 97 97 97 Oximetry 06/20/20 06/20/20 06/20/20 07:47 07:48 07:59 Temperature Pulse Rate 98 H 99 H Pulse Rate [ 98 H From Monitor] Respiratory 30 H Rate Blood Pressure 97/64 O2 Sat by Pulse 99 99 Oximetry 06/20/20 06/20/20 06/20/20 08:00 08:15 08:30 Temperature 97.3 F L Pulse Rate 93 H 98 H 103 H Pulse Rate [ From Monitor] Respiratory 30 H 30 H 30 H Rate Blood Pressure 97/64 105/65 110/68 O2 Sat by Pulse 97 97 97 Oximetry 06/20/20 06/20/20 06/20/20 08:45 09:00 09:15 Temperature Pulse Rate 90 99 H 100 H Pulse Rate [ From Monitor] Respiratory 30 H 30 H 30 H Rate Blood Pressure 103/61 109/62 113/60 O2 Sat by Pulse 97 97 98 Oximetry 06/20/20 06/20/20 06/20/20 09:30 09:45 10:00 Temperature Pulse Rate 107 H 99 H 90 Pulse Rate [ From Monitor] Respiratory 30 H 30 H 30 H Rate Blood Pressure 98/56 99/56 94/59 O2 Sat by Pulse 96 98 98 Oximetry 06/20/20 06/20/20 06/20/20 10:15 10:30 10:45 Temperature Pulse Rate 99 H 99 H 91 H Pulse Rate [ From Monitor] Respiratory 30 H 30 H 30 H Rate Blood Pressure 98/52 97/64 101/61 O2 Sat by Pulse 97 98 Oximetry 06/20/20 06/20/20 06/20/20 11:00 11:15 11:30 Temperature Pulse Rate 95 H 94 H 92 H Pulse Rate [ From Monitor] Respiratory 30 H 30 H 30 H Rate Blood Pressure 100/66 105/61 97/62 O2 Sat by Pulse 98 98 99 Oximetry 06/20/20 06/20/20 06/20/20 11:35 11:45 11:51 Temperature Pulse Rate 105 H 92 H 90 Pulse Rate [ From Monitor] Respiratory 30 H Rate Blood Pressure 97/62 96/55 O2 Sat by Pulse 99 98 Oximetry 06/20/20 06/20/20 06/20/20 11:52 12:00 12:15 Temperature 97.7 F Pulse Rate 97 H 89 Pulse Rate [ 90 From Monitor] Respiratory 30 H 30 H 30 H Rate Blood Pressure 95/61 97/57 O2 Sat by Pulse 98 99 100 Oximetry 06/20/20 06/20/20 06/20/20 12:30 12:45 13:00 Temperature Pulse Rate 104 H 95 H 90 Pulse Rate [ From Monitor] Respiratory 30 H 31 H 30 H Rate Blood Pressure 95/58 93/60 102/61 O2 Sat by Pulse 100 99 94 Oximetry 06/20/20 06/20/20 06/20/20 13:15 13:30 13:45 Temperature Pulse Rate 104 H 97 H 100 H Pulse Rate [ From Monitor] Respiratory 30 H 30 H 30 H Rate Blood Pressure 102/62 110/64 107/61 O2 Sat by Pulse 96 97 93 Oximetry 06/20/20 14:00 Temperature Pulse Rate 95 H Pulse Rate [ From Monitor] Respiratory 29 H Rate Blood Pressure 93/55 O2 Sat by Pulse 91 Oximetry - Lab 06/19/20 12:30 06/20/20 08:25 Most recent lab results ABG pH 7.088 (7.320-7.450) L 06/19/20 18:36 Calcium 5.5 mg/dL (8.4-10.2) L* D 06/20/20 08:25 Magnesium 2.70 mg/dL (1.7-2.3) H 06/18/20 20:33 Urine Creatinine 192.4 mg/dL (0.1-20.0) H 06/18/20 15:00 Urine Sodium 28 mmol/L 06/18/20 15:00 Medications & Allergies - Medications Allergies/Adverse Reactions: Allergies No Known Allergies Allergy (Unverified 06/17/20 14:24) Home Medications: Home Medications Medication Instructions Recorded Confirmed Last Taken Type Losartan/Hydrochlorothiazide 1 each PO QDAY 06/19/20 06/19/20 Unknown History [Losartan-Hctz 100-25 mg Tab] amLODIPine [Norvasc] 5 mg PO DAILY 06/19/20 06/19/20 Unknown History Active Medications: Generic Name Dose Route Start Last Admin Trade Name Freq PRN Reason Stop Dose Admin Acetaminophen 650 mg 06/17/20 14:17 06/19/20 06:42 Acetaminophen 325 Mg Tab PO 650 mg Q4H PRN Administration Pain MILD(1-3)/Fever >100.5/ROBERTS Lipase/Protease/Amylase 1 each 06/19/20 12:15 Lipase 10,500/Protease 25,000/Amylase 43,750 (Units) Dr Kulkarni FEEDTUBE PRN PRN For Clogged Feeding Tube Ascorbic Acid 250 mg 06/17/20 22:00 06/20/20 11:31 Ascorbic Acid 250 Mg Tab PO Not Given BID [facility] Cholecalciferol 1,000 unit 06/18/20 10:00 06/20/20 11:32 Cholecalciferol (Vit D3) 1000 Unit (25 Mcg) Tab PO Not Given DAILY [facility] Dexamethasone 6 mg 06/18/20 22:00 06/20/20 09:32 Dexamethasone 4 Mg/Ml Vial IV 06/28/20 10:01 6 mg Q12HR CONNOR Administration Famotidine 20 mg 06/20/20 11:00 06/20/20 12:49 Famotidine 20 Mg/2 Ml Inj IV 20 mg DAILY CONNOR Administration Fentanyl 50 mcg 06/18/20 01:02 06/18/20 01:22 Fentanyl 100 Mcg/2 Ml Inj IV 50 mcg Q10MIN PRN Administration ANALGESIA Heparin Sodium (Porcine) 4,500 unit 06/19/20 11:34 06/19/20 12:37 Heparin 10,000 Units/10 Ml Vial 40 unit/kg (4500 unit) 4,500 unit IV Administration Q6H PRN Anti-Xa Assay < 0.1 units/ml Hydrophilic Ointment 1 applic 06/17/20 22:52 Lip Therapy Vaseline TP Q2HR PRN Dry Lips REMDESIVIR 100 mg/ Sodium 250 mls @ 500 mls/hr 06/18/20 21:00 06/19/20 20:39 Chloride IV 06/21/20 21:29 500 mls/hr Q24HR@2100 CONNOR Administration Norepinephrine 4 mg in 250 mls @ 7.5 mls/hr 06/18/20 00:00 06/20/20 13:45 Levophed Drip 4 Mg/Ns 250 Ml IV 12 mcg/min TITR CONNOR 45 mls/hr Titration Protocol 2 MCG/MIN Propofol 1,000 mg in 100 mls @ 3.402 mls/hr 06/18/20 01:00 06/20/20 09:32 Diprivan 10 Mg/Ml IV 15 mcg/kg/min TITR CONNOR 10.206 mls/hr Administration Protocol 5 MCG/KG/MIN Fentanyl Citrate 2,000 mcg in 100 mls @ 5.67 mls/hr 06/18/20 02:00 06/20/20 11:31 Fentanyl Drip Premix IV 4 mcg/kg/hr TITR CONNOR 22.68 mls/hr Administration Protocol 1 MCG/KG/HR Vasopressin 20 unit/ Sodium 101 mls @ 9.09 mls/hr 06/18/20 10:00 06/20/20 02:55 Chloride IV 0.03 units/min TITR CONNOR 9.09 mls/hr Administration Protocol 0.03 UNITS/MIN Sodium Chloride 500 mls @ 1 mls/hr 06/18/20 09:38 06/19/20 21:37 Nacl 0.9% 500 Ml IV 0 mls/hr DIRECT PRN Infusion ARTERIAL LINE FLUSH Dextrose/Sodium Chloride 1,000 mls @ 75 mls/hr 06/18/20 12:00 06/20/20 11:30 D5ns IV 75 mls/hr DIRECT CONNOR Administration Heparin Sodium/Sodium Chloride 25,000 unit in 500 mls @ 30 mls/hr 06/19/20 12:00 06/20/20 04:52 Heparin/ 0.45% Nacl-25,000 Unit/500 Ml IV 1,400 units/hr TITR CONNOR 28 mls/hr Administration Protocol 1,500 UNITS/HR Cefepime HCl 2 gm in 100 mls @ 200 mls/hr 06/21/20 10:00 Cefepime/Ns 2 Gm/100 Ml IV Q24HR CONNOR Protocol Insulin Human Regular 0 units 06/18/20 12:00 06/20/20 12:49 Insulin Regular, Human 100 Units/1 Ml SUB-Q 2 units Q6HR CONNOR Administration Protocol Lorazepam 1 mg 06/17/20 17:05 06/17/20 17:10 Lorazepam 2 Mg/Ml Vial IV 1 mg BID PRN Administration Anxiety Multi-Ingred Cream/Lotion/Oil/Oint 1 applic 06/17/20 22:52 Mineral Oil/Petrolatum, White Ophth Oint 3.5 Gm OU Q4HR PRN Dry Eye(s) Ondansetron HCl 4 mg 06/17/20 14:17 Ondansetron 4 Mg/2 Ml Inj IV Q8H PRN Nausea And Vomiting Simple Syrup 15 ml 06/19/20 12:15 Simple Syrup 15 Ml FEEDTUBE PRN PRN Hypoglycemia Simple Syrup 30 ml 06/19/20 12:15 Simple Syrup 15 Ml FEEDTUBE PRN PRN Hypoglycemia Sodium Bicarbonate 325 mg 06/19/20 12:15 Sodium Bicarbonate 325 Mg Tab FEEDTUBE PRN PRN For Clogged Feeding Tube Sodium Chloride 10 ml 06/17/20 22:00 06/20/20 09:32 Sodium Chloride 0.9% 10 Ml Flush Syringe IV 10 ml BID CONNOR Administration Sodium Chloride 10 ml 06/17/20 14:17 Sodium Chloride 0.9% 10 Ml Flush Syringe IV PRN PRN LINE FLUSH Sodium Chloride 50 ml 06/17/20 17:00 06/19/20 20:39 Sodium Chloride 0.9% 50 Ml Ivpb IV 06/20/20 21:01 50 ml Q24HR@2100 CONNOR Administration Zinc Sulfate 220 mg 06/17/20 22:00 06/20/20 11:32 Zinc Sulfate 220 Mg Cap PO Not Given BID CONNOR
--- NOTE | 2020-06-20 16:13 | Progress Note ---
Assessment and Plan Pt in AFib HR 90s. Agree with present cardiac management. Consider IV amio if necessary for HR optimization. Obtain tte once COVID-19 infection is adequately managed. Cont vasopressors and supportive management per primary/critical care team. Pt is critically ill. Overall guarded prognosis. Case reviewed in conjunction with Dr. Chavis, who agrees with the assessment and plan of care. - Patient Problems (1) Acute respiratory failure with hypoxia Current Visit: Yes Status: Acute (2) Pneumonia due to COVID-19 virus Current Visit: Yes Status: Acute (3) Sepsis Current Visit: Yes Status: Acute Qualifiers: Severe sepsis acute organ dysfunction type: acute respiratory failure Severe sepsis shock status: with septic shock (4) Atrial fibrillation with rapid ventricular response Current Visit: Yes Status: Acute (5) GIRISH (acute kidney injury) Current Visit: Yes Status: Acute (6) Elevated LFTs Current Visit: Yes Status: Acute Subjective Date of service: 06/20/20 Principal diagnosis: ARF/Septic Shock/COVID-19 PNA, AF with RVR Interval history: pt remains intubated, sedated, in prone position. requiring multiple vasopressors. on heparin gtt. tele reviewed - in AFib HR 90s. Objective Last Vital Signs Temp 97.7 F 06/20/20 12:00 Pulse 93 H 06/20/20 15:19 Resp 30 H 06/20/20 15:00 BP 97/58 06/20/20 15:19 Pulse Ox 100 06/20/20 15:19 - Physical Examination General: Other (intubated, sedated, prone position ) Neck: Positive: neck supple Cardiac: Positive: irregularly irregular, S1/S2 Lungs: Positive: Oxygen, Ventilated Respirations Neuro: Positive: Other (intubated, sedated, prone position ) - Labs and Meds Cardiac Enzymes 06/20/20 Range/Units 08:25 AST 123 H (5-40) units/L Comprehensive Metabolic Panel 06/20/20 Range/Units 08:25 Sodium 135 L (137-145) mmol/L Potassium 5.4 H (3.6-5.0) mmol/L Chloride 109.2 H (98-107) mmol/L Carbon Dioxide 19 L (22-30) mmol/L BUN 68 H (9-20) mg/dL Creatinine 2.5 H D (0.8-1.3) mg/dL Glucose 201 H (75-100) mg/dL Calcium 5.5 L* D (8.4-10.2) mg/dL AST 123 H (5-40) units/L ALT 86 H (7-56) units/L Alkaline Phosphatase 59 (35-129) units/L Total Protein 4.6 L (6.3-8.2) g/dL Albumin 1.5 L (3.9-5) g/dL - Imaging and Cardiology EKG: report reviewed, image reviewed - Telemetry EKG Rhythm: Atrial Fibrillation
--- NOTE | 2020-06-20 16:26 | Progress Note ---
Assessment and Plan Acute metabolic encephalopathy -Due to severe sepsis and severe hypoxia -CT head ordered (patient is too unstable to do the scan), currently intubated, continue supportive care with frequent neuro check Acute hypoxic respiratory failure -Due to severe COVID-19 pneumonia -Intubated following admission overnight as patient was unable to maintain oxygenation with 100% FiO2 with BiPAP -Critical care following, frequent nebulizer breathing treatment, empiric steroid Severe septic shock -Patient currently on 2 pressor support -Wean off as tolerated COVID-19 pneumonia -Follow inflammatory markers, ID consulted --Patient initially tested positive for COVID-19 virus about 2 weeks before this admission -CXR shows patchy parenchymal disease which represent pulmonary edema or atypical pneumonia -Placed on dexamethasone for total 10 days and remdesivir total 5 days as long as renal function is optimal -hold off if CrCl<30 -Continue empiric antibiotics for now per ID recommendation -Droplet/contact isolation -Continue SPO2 monitoring -Supplemental oxygen as needed -Pulmonary hygiene, Prone intermittently to improve oxygenation -Vitamin C, vitamin D, zinc -Anticoagulation per protocol -Lasix IV as needed to prevent pulmonary edema GIRISH, likely ATN -Follow BMP daily, avoid nephrotoxins -Consult nephrology, follow recommendations hypokalemia, repleted Supraventricular tachycardia/paroxysmal atrial fibrillation -likely due to severe sepsis -Patient currently on 2 pressor, will initiate IV amiodarone drip for rate control if needed -Consulted cardiology, echo ordered currently pending -Placed on heparin drip Elevated LFT, due to shock liver from severe sepsis and COVID-19 infection -Continue to trend DVT prophylaxis, per Covid protocol The high probability of a clinically significant, sudden or life threatening deterioration of the [[facility], DIRECTOR IT, 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 The aggregate critical care time was [42] minutes. This time is in addition to time spent performing reported procedures but includes the following: [x] Data Review and interpretation [x] Patient assessment and monitoring of vital signs [x] Documentation [x] Medication orders and management 06/18: Patient got intubated overnight. Patient was placed on BiPAP to maintain oxygenation with 100% FiO2 but apparently he found to take off his argueta which made his oxygen saturation go down at 60s/50s and patient was found altered mental status. Code met was called immediately. Patient was transferred to ICU and intubated, patient currently on 2 pressors, intubated with 100% FiO2, renal function noted to be decline, nephrology consulted. Discussed with [place] physician Dr. Thompson and requested call back on Saturday. Poor prognosis, continue to monitor with aggressive supportive care. Also called family/ to update clinical status. 06/19: Repeat COVID test was positive. cont cefepime, remdesivir per ID recommendation. follow inflammatory markers, cbc, bmp. placed on heparin drip for atrial fib 06/20: Remains on mechanical ventilation, on 2 pressors, on heparin drip. discussed with and daughter by phone. Renal function declining. cont supportive care for now Subjective Date of service: 06/20/20 Principal diagnosis: ARF/Septic Shock/COVID-19 PNA, AF with RVR Interval history: Patient seen and examined Currently on 2 pressors, mechanically ventilated and sedated Noted vitals, lab results reviewed Discussed with RN at the bedside and critical care attending Objective - Exam Narrative Exam: Limited physical exam due to COVID-19 pandemic to minimize transmission of the disease and to preserve PPE. Vital reviewed and stable. GENERAL: well-developed obese white male lying on bed who is mechanically ventilated and sedated. HEENT: Normocephalic. Atraumatic. NECK: Supple. CHEST/LUNGS: On mechanical ventilation HEART/CARDIOVASCULAR: Tachycardic ABDOMEN: Visibly not distended SKIN: There is no rash NEURO: Patient is intubated MUSCULOSKELETAL: No joint effusion EXTRIMITY: no cyanosis or clubbing. PSYCH: Unable to assess. - Constitutional Vitals: Vital Signs - 12hr 06/20/20 06/20/20 06/20/20 04:30 04:45 05:00 Temperature Pulse Rate 92 H 85 101 H Pulse Rate [ From Monitor] Respiratory 0 L 9 L 30 H Rate Blood Pressure 100/64 112/64 109/63 O2 Sat by Pulse 97 97 97 Oximetry 06/20/20 06/20/20 06/20/20 05:15 05:30 05:45 Temperature Pulse Rate 99 H 91 H 86 Pulse Rate [ From Monitor] Respiratory 30 H 30 H 30 H Rate Blood Pressure 102/64 108/62 110/61 O2 Sat by Pulse 97 98 97 Oximetry 06/20/20 06/20/20 06/20/20 06:00 06:15 06:30 Temperature Pulse Rate 91 H 85 105 H Pulse Rate [ From Monitor] Respiratory 30 H 30 H 30 H Rate Blood Pressure 109/64 100/64 110/67 O2 Sat by Pulse 97 97 Oximetry 06/20/20 06/20/20 06/20/20 06:45 07:00 07:15 Temperature Pulse Rate 101 H 82 88 Pulse Rate [ From Monitor] Respiratory 30 H 30 H 30 H Rate Blood Pressure 118/61 101/60 106/65 O2 Sat by Pulse 97 97 97 Oximetry 06/20/20 06/20/20 06/20/20 07:30 07:45 07:47 Temperature Pulse Rate 101 H 96 H 98 H Pulse Rate [ From Monitor] Respiratory 30 H 30 H Rate Blood Pressure 104/66 93/66 O2 Sat by Pulse 97 97 Oximetry 06/20/20 06/20/20 06/20/20 07:48 07:59 08:00 Temperature 97.3 F L Pulse Rate 99 H 93 H Pulse Rate [ 98 H From Monitor] Respiratory 30 H 30 H Rate Blood Pressure 97/64 97/64 O2 Sat by Pulse 99 99 97 Oximetry 06/20/20 06/20/20 06/20/20 08:15 08:30 08:45 Temperature Pulse Rate 98 H 103 H 90 Pulse Rate [ From Monitor] Respiratory 30 H 30 H 30 H Rate Blood Pressure 105/65 110/68 103/61 O2 Sat by Pulse 97 97 97 Oximetry 06/20/20 06/20/20 06/20/20 09:00 09:15 09:30 Temperature Pulse Rate 99 H 100 H 107 H Pulse Rate [ From Monitor] Respiratory 30 H 30 H 30 H Rate Blood Pressure 109/62 113/60 98/56 O2 Sat by Pulse 97 98 96 Oximetry 06/20/20 06/20/20 06/20/20 09:45 10:00 10:15 Temperature Pulse Rate 99 H 90 99 H Pulse Rate [ From Monitor] Respiratory 30 H 30 H 30 H Rate Blood Pressure 99/56 94/59 98/52 O2 Sat by Pulse 98 98 97 Oximetry 06/20/20 06/20/20 06/20/20 10:30 10:45 11:00 Temperature Pulse Rate 99 H 91 H 95 H Pulse Rate [ From Monitor] Respiratory 30 H 30 H 30 H Rate Blood Pressure 97/64 101/61 100/66 O2 Sat by Pulse 98 98 Oximetry 06/20/20 06/20/20 06/20/20 11:15 11:30 11:35 Temperature Pulse Rate 94 H 92 H 105 H Pulse Rate [ From Monitor] Respiratory 30 H 30 H Rate Blood Pressure 105/61 97/62 97/62 O2 Sat by Pulse 98 99 99 Oximetry 06/20/20 06/20/20 06/20/20 11:45 11:51 11:52 Temperature Pulse Rate 92 H 90 Pulse Rate [ 90 From Monitor] Respiratory 30 H 30 H Rate Blood Pressure 96/55 O2 Sat by Pulse 98 98 Oximetry 06/20/20 06/20/20 06/20/20 12:00 12:15 12:30 Temperature 97.7 F Pulse Rate 97 H 89 104 H Pulse Rate [ From Monitor] Respiratory 30 H 30 H 30 H Rate Blood Pressure 95/61 97/57 95/58 O2 Sat by Pulse 99 100 100 Oximetry 06/20/20 06/20/20 06/20/20 12:45 13:00 13:15 Temperature Pulse Rate 95 H 90 104 H Pulse Rate [ From Monitor] Respiratory 31 H 30 H 30 H Rate Blood Pressure 93/60 102/61 102/62 O2 Sat by Pulse 99 94 96 Oximetry 06/20/20 06/20/20 06/20/20 13:30 13:45 14:00 Temperature Pulse Rate 97 H 100 H 95 H Pulse Rate [ From Monitor] Respiratory 30 H 30 H 29 H Rate Blood Pressure 110/64 107/61 93/55 O2 Sat by Pulse 97 93 91 Oximetry 06/20/20 06/20/20 06/20/20 14:15 14:30 14:45 Temperature Pulse Rate 97 H 93 H 100 H Pulse Rate [ From Monitor] Respiratory 30 H 31 H 30 H Rate Blood Pressure 96/60 104/56 95/54 O2 Sat by Pulse 89 96 92 Oximetry 06/20/20 06/20/20 15:00 15:19 Temperature Pulse Rate 105 H 93 H Pulse Rate [ From Monitor] Respiratory 30 H Rate Blood Pressure 104/55 97/58 O2 Sat by Pulse 98 100 Oximetry - Labs CBC & Chem 7: 06/23/20 04:00 06/23/20 04:00 Labs: Abnormal lab results 06/19/20 06/19/20 06/19/20 Range/Units 17:16 18:36 23:32 Heparin Anti-Xa Level (0.3-0.7) U.I./ml ABG pH 7.088 L (7.320-7.450) POC ABG pCO2 78.1 H (32.0-48.0) mmHg POC ABG pO2 208.3 H (83-108) mmHg ABG Oxyhemoglobin 98.3 H (94-98) ABG Potassium 5.0 H (3.40-4.50) mmol/L ABG Glucose 182 H (65-95) mg/dL Carboxyhemoglobin 0.4 L (0.5-1.5) Sodium (137-145) mmol/L Potassium (3.6-5.0) mmol/L Chloride (98-107) mmol/L Carbon Dioxide (22-30) mmol/L BUN (9-20) mg/dL Creatinine (0.8-1.3) mg/dL Glucose (75-100) mg/dL POC Glucose 154 H 201 H (70-105) mg/dL Calcium (8.4-10.2) mg/dL AST (5-40) units/L ALT (7-56) units/L Total Protein (6.3-8.2) g/dL Albumin (3.9-5) g/dL Arterial Blood Glucose 182 H (65-95) mg/dL Arterial Blood Ionized Calcium 4.3 L (4.6-5.3) mg/dL Vancomycin Trough (5.0-20.0) ug/mL 06/20/20 06/20/20 06/20/20 Range/Units 03:00 05:19 08:25 Heparin Anti-Xa Level 0.77 H (0.3-0.7) U.I./ml ABG pH (7.320-7.450) POC ABG pCO2 (32.0-48.0) mmHg POC ABG pO2 (83-108) mmHg ABG Oxyhemoglobin (94-98) ABG Potassium (3.40-4.50) mmol/L ABG Glucose (65-95) mg/dL Carboxyhemoglobin (0.5-1.5) Sodium 135 L (137-145) mmol/L Potassium 5.4 H (3.6-5.0) mmol/L Chloride 109.2 H (98-107) mmol/L Carbon Dioxide 19 L (22-30) mmol/L BUN 68 H (9-20) mg/dL Creatinine 2.5 H D (0.8-1.3) mg/dL Glucose 201 H (75-100) mg/dL POC Glucose 190 H (70-105) mg/dL Calcium 5.5 L* D (8.4-10.2) mg/dL AST 123 H (5-40) units/L ALT 86 H (7-56) units/L Total Protein 4.6 L (6.3-8.2) g/dL Albumin 1.5 L (3.9-5) g/dL Arterial Blood Glucose (65-95) mg/dL Arterial Blood Ionized Calcium (4.6-5.3) mg/dL Vancomycin Trough (5.0-20.0) ug/mL 06/20/20 06/20/20 06/20/20 Range/Units 08:25 11:36 11:40 Heparin Anti-Xa Level 0.89 H (0.3-0.7) U.I./ml ABG pH (7.320-7.450) POC ABG pCO2 (32.0-48.0) mmHg POC ABG pO2 (83-108) mmHg ABG Oxyhemoglobin (94-98) ABG Potassium (3.40-4.50) mmol/L ABG Glucose (65-95) mg/dL Carboxyhemoglobin (0.5-1.5) Sodium (137-145) mmol/L Potassium (3.6-5.0) mmol/L Chloride (98-107) mmol/L Carbon Dioxide (22-30) mmol/L BUN (9-20) mg/dL Creatinine (0.8-1.3) mg/dL Glucose (75-100) mg/dL POC Glucose 184 H (70-105) mg/dL Calcium (8.4-10.2) mg/dL AST (5-40) units/L ALT (7-56) units/L Total Protein (6.3-8.2) g/dL Albumin (3.9-5) g/dL Arterial Blood Glucose (65-95) mg/dL Arterial Blood Ionized Calcium (4.6-5.3) mg/dL Vancomycin Trough 22.7 H (5.0-20.0) ug/mL HEART Score - HEART Score Troponin: Troponin T < 0.010 ng/mL (0.00-0.029) 06/17/20 12:33
--- NOTE | 2020-06-20 17:37 | XRay Report ---
CHEST 1 VIEW 5:14 PM INDICATION / CLINICAL INFORMATION: Follow-up respiratory failure. COMPARISON: Yesterday. FINDINGS: SUPPORT DEVICES: The nasogastric tube has been removed. The tip of the endotracheal tube is approxima tely 9 cm above the marnie. HEART / MEDIASTINUM: Unchanged. LUNGS / PLEURA: Patchy parenchymal opacities in both mid to lower lung zones have improved, especiall y in the left lower lobe. No new abnormality. No pneumothorax. ADDITIONAL FINDINGS: No significant additional findings. IMPRESSION: 1. Improving bilateral parenchymal opacities. 2. Slightly high endotracheal tube position. Signer Name: Jay Post MD Signed: 06/20/2020 5:33 PM Workstation Name: [id number]
[2020-06-20] MEDS: FUROSEMIDE 40 MG/4 ML INJ IV SCH (18:13)
[2020-06-20] MEDS ORDERED: SODIUM BICARB 8.4% 50 MEQ/50 ML SYRINGE IV ONE (20:30)
--- NOTE | 2020-06-20 20:59 | XRay Report ---
ABDOMEN 1 VIEW 06/20/2020 7:50 PM INDICATION / CLINICAL INFORMATION: OGT insertion. COMPARISON: June 20 2020 chest radiograph and 06/18/2020 abdominal radiograph FINDINGS: TUBES / LINES: Gastric tube tip terminates over the expected location of the mid/distal stomach. BOWEL GAS PATTERN: No significant abnormality. FREE AIR / EXTRALUMINAL GAS: None. ADDITIONAL FINDINGS: Pulmonary airspace disease. IMPRESSION: 1. Gastric tube tip likely resides in the mid/distal stomach. Signer Name: Jay Duff MD Signed: 06/20/2020 8:55 PM Workstation Name: [id number]
[2020-06-20] MEDS: SODIUM CHLORIDE 0.9% 50 ML IVPB IV SCH (21:31)
[2020-06-20] MEDS: REMDESIVIR 100 MG in SODIUM CHLORIDE 0.9% 250ML 250 ML IV SCH (21:31)
[2020-06-21] MEDS: fentaNYL DRIP Premix 2,000 MCG/100 ML BAG IV SCH ×7 (00:23→22:20)
[2020-06-21] MEDS: NORepinephrine/NS 4 MG-250 ML 4 MG/250 ML BAG IV SCH ×4 (00:23→20:55)
[2020-06-21] MEDS: D5W/0.9% NACL 1,000 ML IV SCH (00:23)
[2020-06-21] MEDS: INSULIN REGULAR, HUMAN 100 UNITS/1 ML SUB-Q SCH ×4 (00:24→17:19)
[2020-06-21] MEDS: VASOPRESSIN 20 UNIT in SODIUM CHLORIDE 0.9% 100 ML IV SCH ×3 (01:44→23:08)
[2020-06-21] MEDS: FUROSEMIDE 40 MG/4 ML INJ IV SCH ×3 (05:41→17:15)
[2020-06-21 05:45] LABS: Hematocrit 36.9 % (35.5-45.6); Hemoglobin 11.9 gm/dl (11.8-15.2)
[2020-06-21 06:44] LABS: Albumin 2.1 g/dL (3.9-5); Calcium 6.5 mg/dL (8.4-10.2)
--- NOTE | 2020-06-21 07:59 | Progress Note ---
Assessment and Plan Acute hypoxemic respiratory failure due to COVID-19 Severe COVID infection Severe Sepsis with shock Bilateral pneumonia Acute kidney injury (GIRISH) with acute tubular necrosis (ATN) Elevated liver enzymes Obesity - reduced FiO2 to 70% - continue daily proning for > 12 hours - lower extremity dopplers r/o DVT - continue care as below otherwise; - rate control per cardiology team for afib RVR - Antibiotics per ID, on going fevers (Cefepime) - Continue to wean supplemental oxygen for O2 sats >92% - Monitor blood pressure closely while optimizing sedation,wean vasopressor support for MAP > 65 mmHg - Critical care prone positioning - Agitation management, keep RASS -4 to allow for critical proning - VAP bundle addressed, aspiration precautions HOB >40 - continue lung protective strategies, permissive hypercapnic acceptable. - continue bronchodilators with pulmonary hygiene per RT - wean per pulmonary driven protocols otherwise - accuchecks with glycemic control per SSI (While critically ill target blood glucose of 140-180 mg/dL; avoid hypoglycemia) - sedation prn for target RASS -1 to -2 - continue enteral nutritional support at goal rate as tolerated - Monitor liver function test ,avoid hepatotoxic agents - azotemia per nephrology rec's - Avoid nephrotoxins, renally dose all medications, conservative fluid management - continue to avoid benzodiazepines, reduce the possibility of delirium, - prn analgesia per CPOT score - Maintenance of sleep-wake cycle, avoid delirium - Stress ulcer prophylaxis, Famotidine - PT/OT/ROM exercises - Mobility protocols for pressure ulcer prevention - CXR, ABG in am - CBC, CMP in am - Supportive transfusions to keep HgB >7g/dL - Monitor hemodynamics closely - continue other care per attending / other consultants COVID SPECIFIC INTERVENTIONS - continue steroids: Dexamethasone - continue with Remdesivir - monitor inflammatory markers - ferritin, D-dimer, CRP, LDH every 3 days per facility protocol - continue anticoagulation per System Protocol based on d-dimer - continue contact and airborne isolation CONDITION: CRITICAL PROGNOSIS: GUARDED CODE STATUS: FULL CODE The high probability of a clinically significant, sudden or life-threatening deterioration of the [respiratory, cardiovascular, hematologic & neurologic] system(s) required my full and direct attention, intervention and personal management. The aggregate critical care time was [32] minutes without overlap. Time includes spent on; [x] Data Review and interpretation [x] Patient assessment and monitoring of vital signs [x] Documentation [x] Medication orders and management He was evaluated in the context of the global COVID-19 pandemic, which necessitated consideration that the patient might be at risk for infection with the virus that causes COVID-19. Institutional protocols and algorithms that pertain to the evaluation of patients at risk for COVID-19 are in a state of rapid change based on information released by regulatory bodies including the CDC and federal and state organizations. These policies and algorithms were followed during the patient's care in the ICU Please note that these policies, procedures and recommendations changed on a rapid basis. Subjective Date of service: 06/21/20 Principal diagnosis: Ac hypoxemic resp failure; COVID-19; Septic Shock; Zackery. PNA; GIRISH; Obesity Interval history: Patient is seen today for: Ac hypoxemic respiratory failure; COVID-19; Severe Sepsis with shock; Zackery. pneumonia; GIRISH; Elevated liver enzymes; Obesity Seen and examined at bedside; 24hour events reviewed; nursing and respiratory care staff consulted; no adverse overnight events reported to me; resting in bed; remains on MVS; back in prone position; FiO2 at 80% with 100% FiO2; sedated; no emesis or overt aspiration; remains on levophed and vasopressin Objective Vital Signs - 12hr 06/20/20 06/20/20 06/20/20 20:00 20:15 20:30 Temperature 97.7 F Pulse Rate 87 95 H 103 H Pulse Rate [ 98 H From Monitor] Respiratory 30 H 30 H 30 H Rate Blood Pressure 90/52 82/55 105/70 O2 Sat by Pulse 97 97 98 Oximetry 06/20/20 06/20/20 06/20/20 20:45 21:00 21:15 Temperature Pulse Rate 92 H 84 80 Pulse Rate [ From Monitor] Respiratory 30 H 30 H 30 H Rate Blood Pressure 111/71 113/70 111/64 O2 Sat by Pulse 95 95 95 Oximetry 06/20/20 06/20/20 06/20/20 21:30 21:45 22:00 Temperature Pulse Rate 88 87 84 Pulse Rate [ From Monitor] Respiratory 30 H 30 H 30 H Rate Blood Pressure 115/68 108/63 111/64 O2 Sat by Pulse 95 96 95 Oximetry 06/20/20 06/20/20 06/20/20 22:15 22:30 22:45 Temperature Pulse Rate 91 H 77 90 Pulse Rate [ From Monitor] Respiratory 30 H 30 H 30 H Rate Blood Pressure 117/67 104/62 114/71 O2 Sat by Pulse 94 94 94 Oximetry 06/20/20 06/20/20 06/20/20 23:00 23:14 23:15 Temperature Pulse Rate 88 80 85 Pulse Rate [ From Monitor] Respiratory 30 H 30 H 30 H Rate Blood Pressure 113/69 113/69 116/67 O2 Sat by Pulse 95 94 93 Oximetry 06/20/20 06/20/20 06/21/20 23:30 23:45 00:00 Temperature 97.3 F L 97.3 F L Pulse Rate 89 86 102 H Pulse Rate [ 102 H From Monitor] Respiratory 30 H 30 H 30 H Rate Blood Pressure 118/75 113/67 O2 Sat by Pulse 94 92 98 Oximetry 06/21/20 06/21/20 06/21/20 00:05 00:14 00:15 Temperature Pulse Rate 79 94 H 111 H Pulse Rate [ From Monitor] Respiratory 30 H Rate Blood Pressure 118/75 124/72 124/72 O2 Sat by Pulse 99 99 Oximetry 06/21/20 06/21/20 06/21/20 00:30 00:45 01:00 Temperature Pulse Rate 103 H 93 H 86 Pulse Rate [ From Monitor] Respiratory 31 H 30 H 30 H Rate Blood Pressure 125/66 128/74 118/68 O2 Sat by Pulse 99 100 100 Oximetry 06/21/20 06/21/20 06/21/20 01:15 01:30 01:45 Temperature Pulse Rate 92 H 95 H 99 H Pulse Rate [ From Monitor] Respiratory 30 H 30 H 30 H Rate Blood Pressure 116/65 119/66 109/70 O2 Sat by Pulse 100 100 100 Oximetry 06/21/20 06/21/20 06/21/20 02:00 02:15 02:30 Temperature Pulse Rate 90 89 88 Pulse Rate [ From Monitor] Respiratory 30 H 30 H 30 H Rate Blood Pressure 109/67 122/63 124/72 O2 Sat by Pulse 100 99 99 Oximetry 06/21/20 06/21/20 06/21/20 02:45 03:00 03:15 Temperature Pulse Rate 97 H 99 H 101 H Pulse Rate [ From Monitor] Respiratory 30 H 30 H 30 H Rate Blood Pressure 121/64 117/67 120/67 O2 Sat by Pulse 100 100 99 Oximetry 06/21/20 06/21/20 06/21/20 03:30 03:45 04:00 Temperature 97.1 F L Pulse Rate 98 H 91 H 97 H Pulse Rate [ 84 From Monitor] Respiratory 30 H 30 H 30 H Rate Blood Pressure 126/72 115/60 106/68 O2 Sat by Pulse 99 99 99 Oximetry 06/21/20 06/21/20 06/21/20 04:15 04:30 04:39 Temperature Pulse Rate 101 H 95 H 100 H Pulse Rate [ From Monitor] Respiratory 30 H 30 H Rate Blood Pressure 115/70 111/65 111/65 O2 Sat by Pulse 99 99 99 Oximetry 06/21/20 06/21/20 06/21/20 04:45 05:00 05:15 Temperature Pulse Rate 97 H 83 93 H Pulse Rate [ From Monitor] Respiratory 30 H 30 H 30 H Rate Blood Pressure 115/59 115/60 117/67 O2 Sat by Pulse 98 99 99 Oximetry 06/21/20 06/21/20 06/21/20 05:30 05:45 06:00 Temperature Pulse Rate 98 H 89 95 H Pulse Rate [ From Monitor] Respiratory 30 H 30 H 30 H Rate Blood Pressure 110/64 110/65 114/66 O2 Sat by Pulse 98 99 98 Oximetry Constitutional: no acute distress, other (morbidly obese, atraumatic, normocephalic, well sedated) Eyes: non-icteric Neck: supple, no lymphadenopathy, other (Large , short neck) Effort: mildly labored Ascultation: Bilateral: diminished breath sounds, rhonchi (scant) Percussion: Bilateral: not dull Cardiovascular: irregular rhythm, other (S1,S2) Gastrointestinal: normoactive bowel sounds, soft, non-tender, non-distended Integumentary: rash, other (Femoral CVC, Newell catheter) Extremities: no cyanosis, no edema, pulses normal, no ischemia or petechiae Neurologic: pupils equal and round, other (unable to assess, sedated) Psychiatric: other (unable to assess, sedated) CBC and BMP: 06/21/20 04:00 06/21/20 05:00 ABG, PT/INR, D-dimer: ABG ABG pH 7.099 (7.320-7.450) L 06/20/20 20:00 POC ABG pCO2 61.1 mmHg (32.0-48.0) H 06/20/20 20:00 POC ABG pO2 94.8 mmHg (83-108) 06/20/20 20:00 POC ABG HCO3 18.5 06/20/20 20:00 PT/INR, D-dimer PT 16.4 Sec. (12.2-14.9) H 06/19/20 12:30 INR 1.32 (0.87-1.13) H 06/19/20 12:30 D-Dimer 939.89 ng/mlDDU (0-234) H 06/17/20 14:48 Abnormal lab findings: Abnormal Labs 06/17/20 06/17/20 06/17/20 12:33 12:33 12:33 WBC 19.5 H RBC 5.18 H Hgb 15.5 H Lymph % (Auto) 3.8 L Lymph # (Auto) 0.7 L Seg Neuts % (Manual) 99.0 H Lymphocytes % (Manual) 1.0 L Seg Neutrophils # 18.2 H Seg Neutrophils # Man 19.3 H Lymphocytes # (Manual) 0.2 L Monocytes # (Manual) PT 16.5 H INR 1.33 H D-Dimer 1025.04 H Heparin Anti-Xa Level ABG pH POC ABG pCO2 POC ABG pO2 ABG Oxyhemoglobin ABG Sodium ABG Potassium ABG Chloride ABG Glucose Carboxyhemoglobin Sodium 130 L Potassium 3.4 L Chloride 95.0 L Carbon Dioxide BUN 21 H Creatinine Glucose 137 H POC Glucose Lactic Acid Calcium 7.9 L Magnesium Ferritin AST 84 H ALT 67 H Lactate Dehydrogenase 437 H Total Creatine Kinase 310 H C-Reactive Protein 27.90 H Total Protein Albumin 2.9 L Triglycerides Arterial Blood Glucose Arterial Blood Ionized Calcium Urine Creatinine Urine Chloride Vancomycin Trough Coronavirus (PCR) 06/17/20 06/17/20 06/17/20 12:33 12:33 14:48 WBC RBC Hgb Lymph % (Auto) Lymph # (Auto) Seg Neuts % (Manual) Lymphocytes % (Manual) Seg Neutrophils # Seg Neutrophils # Man Lymphocytes # (Manual) Monocytes # (Manual) PT INR D-Dimer Heparin Anti-Xa Level ABG pH POC ABG pCO2 POC ABG pO2 ABG Oxyhemoglobin ABG Sodium ABG Potassium ABG Chloride ABG Glucose Carboxyhemoglobin Sodium Potassium Chloride Carbon Dioxide BUN Creatinine Glucose POC Glucose Lactic Acid 2.50 H* 2.20 H* Calcium Magnesium Ferritin 2297.0 H AST ALT Lactate Dehydrogenase Total Creatine Kinase C-Reactive Protein Total Protein Albumin Triglycerides Arterial Blood Glucose Arterial Blood Ionized Calcium Urine Creatinine Urine Chloride Vancomycin Trough Coronavirus (PCR) 06/17/20 06/17/20 06/17/20 14:48 14:48 14:48 WBC RBC Hgb Lymph % (Auto) Lymph # (Auto) Seg Neuts % (Manual) Lymphocytes % (Manual) Seg Neutrophils # Seg Neutrophils # Man Lymphocytes # (Manual) Monocytes # (Manual) PT INR D-Dimer 939.89 H Heparin Anti-Xa Level ABG pH POC ABG pCO2 POC ABG pO2 ABG Oxyhemoglobin ABG Sodium ABG Potassium ABG Chloride ABG Glucose Carboxyhemoglobin Sodium Potassium Chloride Carbon Dioxide BUN Creatinine Glucose 141 H POC Glucose Lactic Acid Calcium Magnesium Ferritin > 2000.0 H AST ALT Lactate Dehydrogenase 503 H Total Creatine Kinase C-Reactive Protein 24.70 H Total Protein Albumin Triglycerides Arterial Blood Glucose Arterial Blood Ionized Calcium Urine Creatinine Urine Chloride Vancomycin Trough Coronavirus (PCR) 06/17/20 06/17/20 06/17/20 16:54 19:39 23:43 WBC RBC Hgb Lymph % (Auto) Lymph # (Auto) Seg Neuts % (Manual) Lymphocytes % (Manual) Seg Neutrophils # Seg Neutrophils # Man Lymphocytes # (Manual) Monocytes # (Manual) PT INR D-Dimer Heparin Anti-Xa Level ABG pH 7.571 H POC ABG pCO2 24.3 L POC ABG pO2 41.6 L ABG Oxyhemoglobin 84.0 L ABG Sodium 131.0 L ABG Potassium ABG Chloride ABG Glucose 163 H Carboxyhemoglobin Sodium Potassium Chloride Carbon Dioxide BUN Creatinine Glucose POC Glucose 185 H Lactic Acid 2.10 H* Calcium Magnesium Ferritin AST ALT Lactate Dehydrogenase Total Creatine Kinase C-Reactive Protein Total Protein Albumin Triglycerides Arterial Blood Glucose 163 H Arterial Blood Ionized Calcium 4.4 L Urine Creatinine Urine Chloride Vancomycin Trough Coronavirus (PCR) 06/18/20 06/18/20 06/18/20 00:17 00:23 03:55 WBC RBC Hgb Lymph % (Auto) Lymph # (Auto) Seg Neuts % (Manual) Lymphocytes % (Manual) Seg Neutrophils # Seg Neutrophils # Man Lymphocytes # (Manual) Monocytes # (Manual) PT INR D-Dimer Heparin Anti-Xa Level ABG pH POC ABG pCO2 POC ABG pO2 56.5 L 48.3 L ABG Oxyhemoglobin 86.3 L 81.7 L ABG Sodium 132.9 L 131.0 L ABG Potassium ABG Chloride ABG Glucose 189 H 161 H Carboxyhemoglobin 0.4 L Sodium Potassium Chloride Carbon Dioxide BUN Creatinine Glucose POC Glucose Lactic Acid 3.80 H* Calcium Magnesium Ferritin AST ALT Lactate Dehydrogenase Total Creatine Kinase C-Reactive Protein Total Protein Albumin Triglycerides Arterial Blood Glucose 189 H 161 H Arterial Blood Ionized Calcium 4.3 L 4.2 L Urine Creatinine Urine Chloride Vancomycin Trough Coronavirus (PCR) 06/18/20 06/18/20 06/18/20 05:39 05:39 05:39 WBC 26.2 H RBC Hgb Lymph % (Auto) Lymph # (Auto) Seg Neuts % (Manual) 90.0 H Lymphocytes % (Manual) 5.0 L Seg Neutrophils # Seg Neutrophils # Man 23.6 H Lymphocytes # (Manual) Monocytes # (Manual) 1.3 H PT INR D-Dimer Heparin Anti-Xa Level ABG pH POC ABG pCO2 POC ABG pO2 ABG Oxyhemoglobin ABG Sodium ABG Potassium ABG Chloride ABG Glucose Carboxyhemoglobin Sodium 135 L Potassium Chloride 97.5 L Carbon Dioxide 21 L BUN 39 H Creatinine 1.7 H D Glucose 168 H POC Glucose Lactic Acid 3.40 H* Calcium 7.2 L Magnesium Ferritin AST ALT Lactate Dehydrogenase Total Creatine Kinase C-Reactive Protein Total Protein Albumin Triglycerides Arterial Blood Glucose Arterial Blood Ionized Calcium Urine Creatinine Urine Chloride Vancomycin Trough Coronavirus (PCR) 06/18/20 06/18/20 06/18/20 07:24 09:00 10:10 WBC RBC Hgb Lymph % (Auto) Lymph # (Auto) Seg Neuts % (Manual) Lymphocytes % (Manual) Seg Neutrophils # Seg Neutrophils # Man Lymphocytes # (Manual) Monocytes # (Manual) PT INR D-Dimer Heparin Anti-Xa Level ABG pH POC ABG pCO2 POC ABG pO2 ABG Oxyhemoglobin ABG Sodium ABG Potassium ABG Chloride ABG Glucose Carboxyhemoglobin Sodium Potassium Chloride Carbon Dioxide BUN Creatinine Glucose POC Glucose Lactic Acid 2.90 H* 3.20 H* Calcium Magnesium Ferritin AST ALT Lactate Dehydrogenase Total Creatine Kinase C-Reactive Protein Total Protein Albumin Triglycerides Arterial Blood Glucose Arterial Blood Ionized Calcium Urine Creatinine Urine Chloride Vancomycin Trough Coronavirus (PCR) Positive A 06/18/20 06/18/20 06/18/20 11:58 14:43 15:00 WBC RBC Hgb Lymph % (Auto) Lymph # (Auto) Seg Neuts % (Manual) Lymphocytes % (Manual) Seg Neutrophils # Seg Neutrophils # Man Lymphocytes # (Manual) Monocytes # (Manual) PT INR D-Dimer Heparin Anti-Xa Level ABG pH 7.303 L POC ABG pCO2 POC ABG pO2 82.3 L ABG Oxyhemoglobin ABG Sodium 135.3 L ABG Potassium ABG Chloride ABG Glucose 215 H Carboxyhemoglobin 0.3 L Sodium Potassium Chloride Carbon Dioxide BUN Creatinine Glucose POC Glucose 209 H Lactic Acid Calcium Magnesium Ferritin AST ALT Lactate Dehydrogenase Total Creatine Kinase C-Reactive Protein Total Protein Albumin Triglycerides Arterial Blood Glucose 215 H Arterial Blood Ionized Calcium 4.2 L Urine Creatinine 192.4 H Urine Chloride 31.1 L Vancomycin Trough Coronavirus (PCR) 06/18/20 06/18/20 06/18/20 17:16 19:44 20:33 WBC RBC Hgb Lymph % (Auto) Lymph # (Auto) Seg Neuts % (Manual) Lymphocytes % (Manual) Seg Neutrophils # Seg Neutrophils # Man Lymphocytes # (Manual) Monocytes # (Manual) PT INR D-Dimer Heparin Anti-Xa Level ABG pH POC ABG pCO2 POC ABG pO2 ABG Oxyhemoglobin ABG Sodium ABG Potassium ABG Chloride ABG Glucose Carboxyhemoglobin Sodium Potassium Chloride Carbon Dioxide BUN Creatinine Glucose POC Glucose 182 H Lactic Acid 3.00 H* Calcium Magnesium 2.70 H Ferritin AST ALT Lactate Dehydrogenase Total Creatine Kinase C-Reactive Protein Total Protein Albumin Triglycerides Arterial Blood Glucose Arterial Blood Ionized Calcium Urine Creatinine Urine Chloride Vancomycin Trough Coronavirus (PCR) 06/18/20 06/19/20 06/19/20 23:43 04:00 04:00 WBC 31.6 H RBC Hgb Lymph % (Auto) Lymph # (Auto) Seg Neuts % (Manual) 98.0 H Lymphocytes % (Manual) 0.5 L Seg Neutrophils # Seg Neutrophils # Man 31.0 H Lymphocytes # (Manual) 0.2 L Monocytes # (Manual) PT INR D-Dimer Heparin Anti-Xa Level ABG pH POC ABG pCO2 POC ABG pO2 ABG Oxyhemoglobin ABG Sodium ABG Potassium ABG Chloride ABG Glucose Carboxyhemoglobin Sodium Potassium Chloride Carbon Dioxide BUN 56 H Creatinine 1.6 H Glucose 176 H POC Glucose 149 H Lactic Acid Calcium 7.0 L Magnesium Ferritin AST 244 H ALT 159 H Lactate Dehydrogenase Total Creatine Kinase C-Reactive Protein Total Protein 4.9 L D Albumin 2.5 L Triglycerides Arterial Blood Glucose Arterial Blood Ionized Calcium Urine Creatinine Urine Chloride Vancomycin Trough Coronavirus (PCR) 06/19/20 06/19/20 06/19/20 04:00 05:44 11:42 WBC RBC Hgb Lymph % (Auto) Lymph # (Auto) Seg Neuts % (Manual) Lymphocytes % (Manual) Seg Neutrophils # Seg Neutrophils # Man Lymphocytes # (Manual) Monocytes # (Manual) PT INR D-Dimer Heparin Anti-Xa Level ABG pH 7.265 L POC ABG pCO2 51.8 H POC ABG pO2 65.1 L ABG Oxyhemoglobin ABG Sodium ABG Potassium ABG Chloride ABG Glucose 184 H Carboxyhemoglobin Sodium Potassium Chloride Carbon Dioxide BUN Creatinine Glucose POC Glucose 156 H 191 H Lactic Acid Calcium Magnesium Ferritin AST ALT Lactate Dehydrogenase Total Creatine Kinase C-Reactive Protein Total Protein Albumin Triglycerides Arterial Blood Glucose 184 H Arterial Blood Ionized Calcium 4.3 L Urine Creatinine Urine Chloride Vancomycin Trough Coronavirus (PCR) 06/19/20 06/19/20 06/19/20 12:30 17:16 18:36 WBC RBC Hgb Lymph % (Auto) Lymph # (Auto) Seg Neuts % (Manual) Lymphocytes % (Manual) Seg Neutrophils # Seg Neutrophils # Man Lymphocytes # (Manual) Monocytes # (Manual) PT 16.4 H INR 1.32 H D-Dimer Heparin Anti-Xa Level ABG pH 7.088 L POC ABG pCO2 78.1 H POC ABG pO2 208.3 H ABG Oxyhemoglobin 98.3 H ABG Sodium ABG Potassium 5.0 H ABG Chloride ABG Glucose 182 H Carboxyhemoglobin 0.4 L Sodium Potassium Chloride Carbon Dioxide BUN Creatinine Glucose POC Glucose 154 H Lactic Acid Calcium Magnesium Ferritin AST ALT Lactate Dehydrogenase Total Creatine Kinase C-Reactive Protein Total Protein Albumin Triglycerides Arterial Blood Glucose 182 H Arterial Blood Ionized Calcium 4.3 L Urine Creatinine Urine Chloride Vancomycin Trough Coronavirus (PCR) 06/19/20 06/20/20 06/20/20 23:32 03:00 05:19 WBC RBC Hgb Lymph % (Auto) Lymph # (Auto) Seg Neuts % (Manual) Lymphocytes % (Manual) Seg Neutrophils # Seg Neutrophils # Man Lymphocytes # (Manual) Monocytes # (Manual) PT INR D-Dimer Heparin Anti-Xa Level 0.77 H ABG pH POC ABG pCO2 POC ABG pO2 ABG Oxyhemoglobin ABG Sodium ABG Potassium ABG Chloride ABG Glucose Carboxyhemoglobin Sodium Potassium Chloride Carbon Dioxide BUN Creatinine Glucose POC Glucose 201 H 190 H Lactic Acid Calcium Magnesium Ferritin AST ALT Lactate Dehydrogenase Total Creatine Kinase C-Reactive Protein Total Protein Albumin Triglycerides Arterial Blood Glucose Arterial Blood Ionized Calcium Urine Creatinine Urine Chloride Vancomycin Trough Coronavirus (PCR) 06/20/20 06/20/20 06/20/20 08:25 08:25 11:36 WBC RBC Hgb Lymph % (Auto) Lymph # (Auto) Seg Neuts % (Manual) Lymphocytes % (Manual) Seg Neutrophils # Seg Neutrophils # Man Lymphocytes # (Manual) Monocytes # (Manual) PT INR D-Dimer Heparin Anti-Xa Level ABG pH POC ABG pCO2 POC ABG pO2 ABG Oxyhemoglobin ABG Sodium ABG Potassium ABG Chloride ABG Glucose Carboxyhemoglobin Sodium 135 L Potassium 5.4 H Chloride 109.2 H Carbon Dioxide 19 L BUN 68 H Creatinine 2.5 H D Glucose 201 H POC Glucose 184 H Lactic Acid Calcium 5.5 L* D Magnesium Ferritin AST 123 H ALT 86 H Lactate Dehydrogenase Total Creatine Kinase C-Reactive Protein Total Protein 4.6 L Albumin 1.5 L Triglycerides Arterial Blood Glucose Arterial Blood Ionized Calcium Urine Creatinine Urine Chloride Vancomycin Trough 22.7 H Coronavirus (PCR) 06/20/20 06/20/20 06/20/20 11:40 17:28 20:00 WBC RBC Hgb Lymph % (Auto) Lymph # (Auto) Seg Neuts % (Manual) Lymphocytes % (Manual) Seg Neutrophils # Seg Neutrophils # Man Lymphocytes # (Manual) Monocytes # (Manual) PT INR D-Dimer Heparin Anti-Xa Level 0.89 H ABG pH 7.099 L POC ABG pCO2 61.1 H POC ABG pO2 ABG Oxyhemoglobin ABG Sodium ABG Potassium 5.0 H ABG Chloride 111.0 H ABG Glucose 200 H Carboxyhemoglobin 0.4 L Sodium Potassium Chloride Carbon Dioxide BUN Creatinine Glucose POC Glucose 165 H Lactic Acid Calcium Magnesium Ferritin AST ALT Lactate Dehydrogenase Total Creatine Kinase C-Reactive Protein Total Protein Albumin Triglycerides Arterial Blood Glucose 200 H Arterial Blood Ionized Calcium 4.2 L Urine Creatinine Urine Chloride Vancomycin Trough Coronavirus (PCR) 06/20/20 06/21/20 06/21/20 23:29 05:00 05:20 WBC RBC Hgb Lymph % (Auto) Lymph # (Auto) Seg Neuts % (Manual) Lymphocytes % (Manual) Seg Neutrophils # Seg Neutrophils # Man Lymphocytes # (Manual) Monocytes # (Manual) PT INR D-Dimer Heparin Anti-Xa Level ABG pH POC ABG pCO2 POC ABG pO2 ABG Oxyhemoglobin ABG Sodium ABG Potassium ABG Chloride ABG Glucose Carboxyhemoglobin Sodium Potassium Chloride 112.0 H Carbon Dioxide 20 L BUN 92 H Creatinine 3.9 H D Glucose 214 H POC Glucose 145 H 191 H Lactic Acid Calcium 6.5 L D Magnesium Ferritin AST 98 H ALT 84 H Lactate Dehydrogenase Total Creatine Kinase C-Reactive Protein Total Protein 4.6 L Albumin 2.1 L Triglycerides 180 H Arterial Blood Glucose Arterial Blood Ionized Calcium Urine Creatinine Urine Chloride Vancomycin Trough Coronavirus (PCR) 06/21/20 Unknown WBC RBC Hgb Lymph % (Auto) Lymph # (Auto) Seg Neuts % (Manual) Lymphocytes % (Manual) Seg Neutrophils # Seg Neutrophils # Man Lymphocytes # (Manual) Monocytes # (Manual) PT INR D-Dimer Heparin Anti-Xa Level 0.78 H ABG pH POC ABG pCO2 POC ABG pO2 ABG Oxyhemoglobin ABG Sodium ABG Potassium ABG Chloride ABG Glucose Carboxyhemoglobin Sodium Potassium Chloride Carbon Dioxide BUN Creatinine Glucose POC Glucose Lactic Acid Calcium Magnesium Ferritin AST ALT Lactate Dehydrogenase Total Creatine Kinase C-Reactive Protein Total Protein Albumin Triglycerides Arterial Blood Glucose Arterial Blood Ionized Calcium Urine Creatinine Urine Chloride Vancomycin Trough Coronavirus (PCR) Chest x-ray: image reviewed (slightly worse L>R lower lobe infiltrates) Allied health notes reviewed: nursing
--- NOTE | 2020-06-21 08:36 | XRay Report ---
CHEST 1 VIEW 0754 hours INDICATION: follow up respiratory failure. COMPARISON: Yesterday FINDINGS: Support devices: The endotracheal tube terminates 6.4 cm superior to the marnie. Nasogastric tube is followed to the mid stomach although the distal tip is not included. Heart: Within normal limits. Lungs/Pleura: Patchy infiltrate throughout the left lung appears increased by 25%. Subtle airspace di sease at the right lung base has resolved. The right lung is generally clear. No pneumothorax. Additional findings: None. IMPRESSION: Mild interval worsening of the left lung infiltrate. Signer Name: Mahendra Keane Jr, MD Signed: 06/21/2020 8:32 AM Workstation Name: [id number]
[2020-06-21] MEDS: FAMOTIDINE 20 MG/2 ML INJ IV SCH (08:59)
[2020-06-21] MEDS: dexAMETHasone 4 MG/ML VIAL IV SCH ×2 (08:59→21:05)
[2020-06-21] MEDS: CHOLECALCIFEROL (VIT D3) 1000 UNIT (25 mcg) TAB PO SCH (09:00)
[2020-06-21] MEDS: ASCORBIC ACID 250 MG TAB PO SCH ×2 (09:00→21:05)
[2020-06-21] MEDS: CEFEPIME/NS 2 GM/100 ML 2 GM/100 ML BAG IV SCH (09:00)
[2020-06-21] MEDS: ZINC SULFATE 220 MG CAP PO SCH ×2 (09:00→21:05)
--- NOTE | 2020-06-21 11:28 | Progress Note ---
Assessment and Plan Pt in AFib HR 90s. Agree with present cardiac management. Consider IV amio if necessary for HR optimization. Obtain tte once COVID-19 infection is adequately managed. Cont vasopressors and supportive management per primary/critical care team. Pt is critically ill. Overall guarded prognosis. Case reviewed in conjunction with Dr. Chavis, who agrees with the assessment and plan of care. - Patient Problems (1) Acute respiratory failure with hypoxia Current Visit: Yes Status: Acute (2) Pneumonia due to COVID-19 virus Current Visit: Yes Status: Acute (3) Sepsis Current Visit: Yes Status: Acute Qualifiers: Severe sepsis acute organ dysfunction type: acute respiratory failure Severe sepsis shock status: with septic shock (4) Atrial fibrillation with rapid ventricular response Current Visit: Yes Status: Acute (5) GIRISH (acute kidney injury) Current Visit: Yes Status: Acute (6) Elevated LFTs Current Visit: Yes Status: Acute Subjective Date of service: 06/21/20 Principal diagnosis: Ac hypoxemic resp failure; COVID-19; Septic Shock; Zackeyr. PNA; GIRISH; Obesity Interval history: pt remains intubated, sedated, in prone position. requiring multiple vasopressor s. on heparin gtt. tele reviewed - in AFib/AFlutter HR 90s. Objective Last Vital Signs Temp 97.7 F 06/21/20 08:00 Pulse 89 06/21/20 10:00 Resp 30 H 06/21/20 10:00 BP 107/61 06/21/20 10:00 Pulse Ox 100 06/21/20 10:00 - Physical Examination General: Other (intubated, sedated, prone position ) Neck: Positive: neck supple Cardiac: Positive: irregularly irregular, S1/S2 Lungs: Positive: Decreased Breath Sounds, Oxygen, Ventilated Respirations Neuro: Positive: Other (intubated, sedated, prone position ) - Labs and Meds Cardiac Enzymes 06/21/20 Range/Units 05:00 AST 98 H (5-40) units/L Lipids 06/21/20 Range/Units 05:00 Triglycerides 180 H (2-149) mg/dL CBC 06/21/20 Range/Units 04:00 Hgb 11.9 (11.8-15.2) gm/dl Hct 36.9 (35.5-45.6) % Plt Count 190 (140-440) K/mm3 Comprehensive Metabolic Panel 06/21/20 Range/Units 05:00 Sodium 144 D (137-145) mmol/L Potassium 5.0 (3.6-5.0) mmol/L Chloride 112.0 H (98-107) mmol/L Carbon Dioxide 20 L (22-30) mmol/L BUN 92 H (9-20) mg/dL Creatinine 3.9 H D (0.8-1.3) mg/dL Glucose 214 H (75-100) mg/dL Calcium 6.5 L D (8.4-10.2) mg/dL AST 98 H (5-40) units/L ALT 84 H (7-56) units/L Alkaline Phosphatase 68 (35-129) units/L Total Protein 4.6 L (6.3-8.2) g/dL Albumin 2.1 L (3.9-5) g/dL - Imaging and Cardiology EKG: report reviewed, image reviewed - Telemetry EKG Rhythm: Atrial Fibrillation - Allied health notes Allied health notes reviewed: nursing
--- NOTE | 2020-06-21 13:16 | Progress Note ---
Assessment and Plan Cultures: SARS CoV2 PCR: Positive as outpatient Blood culture: no growth Sputum culture: no growth A/P: 59-year-old male with obesity, obesity hypoventilation syndrome: #Severe sepsis with septic shock: likely secondary to critical COVID-19 pneumonia. Blood cultures so far negative. ?Bacterial pneumonia component. #Critical COVID-19 pneumonia: Procalcitonin also high, treat with empiric a ntibiotics. #Acute hypoxic respiratory failure: on the vent, requiring prone ventilation. #Transaminitis: Likely secondary to COVID-19. #GIRISH: creatinine elevated. Recs: -Continue steroids for at least total 10 days -Continue remdesivir, D5 today -Continue empiric IV Cefepime x 5-7 days -Vancomycin discontinued -prophylactic anticoagulation based on d-dimer per hospital protocol -trend ferritin, LDH, d-dimer, CRP every 2-3 days for risk stratification and to assess disease progression -poor prognosis Tj Fajardo MD, FACP [facility] ([facility] O: [phone] F: [phone] Subjective Date of service: 06/21/20 Principal diagnosis: Ac hypoxemic resp failure; COVID-19; Septic Shock; Zackery. PNA; GIRISH; Obesity Interval history: No fever. Remains on the vent. Still on pressors. Objective - Exam Narrative Exam: Physical Exam (reviewed in chart to minimize risk of transmission) Constitutional: deferred Head, Ears, Nose: deferred Eyes: deferred Neck: deferred Oral: deferred Cardiovascular: deferred Respiratory: deferred GI: deferred Musculoskeletal: deferred Skin: deferred Hem/Lymphatic: deferred Psych: deferred Neurological: deferred - Constitutional Vitals: Vital Signs Temp Pulse Resp BP Pulse Ox 97.7 F 89 30 H 107/61 100 06/21/20 08:00 06/21/20 10:00 06/21/20 10:00 06/21/20 10:00 06/21/20 10:00 Temperature -Last 24 Hours Temperature 97.7 F Temperature 97.1 F Temperature 97.1 F Temperature 97.3 F Temperature 97.3 F Temperature 97.7 F Temperature 97.9 F - Labs CBC & Chem 7: 06/21/20 04:00 06/21/20 05:00 Labs: Abnormal lab results 02/12/3106/20/20 06/20/20 Range/Units 11:36 17:28 20:00 Heparin Anti-Xa Level (0.3-0.7) U.I./ml ABG pH 7.099 L (7.320-7.450) POC ABG pCO2 61.1 H (32.0-48.0) mmHg ABG Potassium 5.0 H (3.40-4.50) mmol/L ABG Chloride 111.0 H (98-107) mmol/L ABG Glucose 200 H (65-95) mg/dL Carboxyhemoglobin 0.4 L (0.5-1.5) Chloride (98-107) mmol/L Carbon Dioxide (22-30) mmol/L BUN (9-20) mg/dL Creatinine (0.8-1.3) mg/dL Glucose (75-100) mg/dL POC Glucose 184 H 165 H (70-105) mg/dL Calcium (8.4-10.2) mg/dL AST (5-40) units/L ALT (7-56) units/L Total Protein (6.3-8.2) g/dL Albumin (3.9-5) g/dL Triglycerides (2-149) mg/dL Arterial Blood Glucose 200 H (65-95) mg/dL Arterial Blood Ionized Calcium 4.2 L (4.6-5.3) mg/dL 06/20/20 06/21/20 06/21/20 Range/Units 23:29 05:00 05:20 Heparin Anti-Xa Level (0.3-0.7) U.I./ml ABG pH (7.320-7.450) POC ABG pCO2 (32.0-48.0) mmHg ABG Potassium (3.40-4.50) mmol/L ABG Chloride (98-107) mmol/L ABG Glucose (65-95) mg/dL Carboxyhemoglobin (0.5-1.5) Chloride 112.0 H (98-107) mmol/L Carbon Dioxide 20 L (22-30) mmol/L BUN 92 H (9-20) mg/dL Creatinine 3.9 H D (0.8-1.3) mg/dL Glucose 214 H (75-100) mg/dL POC Glucose 145 H 191 H (70-105) mg/dL Calcium 6.5 L D (8.4-10.2) mg/dL AST 98 H (5-40) units/L ALT 84 H (7-56) units/L Total Protein 4.6 L (6.3-8.2) g/dL Albumin 2.1 L (3.9-5) g/dL Triglycerides 180 H (2-149) mg/dL Arterial Blood Glucose (65-95) mg/dL Arterial Blood Ionized Calcium (4.6-5.3) mg/dL 06/21/20 06/21/20 Range/Units 08:56 Unknown Heparin Anti-Xa Level 0.28 L 0.78 H (0.3-0.7) U.I./ml ABG pH (7.320-7.450) POC ABG pCO2 (32.0-48.0) mmHg ABG Potassium (3.40-4.50) mmol/L ABG Chloride (98-107) mmol/L ABG Glucose (65-95) mg/dL Carboxyhemoglobin (0.5-1.5) Chloride (98-107) mmol/L Carbon Dioxide (22-30) mmol/L BUN (9-20) mg/dL Creatinine (0.8-1.3) mg/dL Glucose (75-100) mg/dL POC Glucose (70-105) mg/dL Calcium (8.4-10.2) mg/dL AST (5-40) units/L ALT (7-56) units/L Total Protein (6.3-8.2) g/dL Albumin (3.9-5) g/dL Triglycerides (2-149) mg/dL Arterial Blood Glucose (65-95) mg/dL Arterial Blood Ionized Calcium (4.6-5.3) mg/dL
--- NOTE | 2020-06-21 15:49 | Progress Note ---
Assessment and Plan - Patient Problems (1) Acute renal failure Current Visit: Yes Status: Acute Plan to address problem: Likely prerenal in nature secondary to new onset of COVID-19 pneumonia with worsening sepsis and hypotension. Concern for acute tubular necrosis. He has become now progressively more oliguric. I am concerned that his acute tubular necrosis is worsening at this time. Renal function has shown worsening. Labs reviewed this morning. He is continuing on D5 half-normal saline at 75 cc an hour. I will increase dose of Lasix to 80 mg IV twice daily to see if he will start to increase overall urine output. His respiratory status continues to be poor as he remains intubated with an FiO2 of 80%. He is prone at this time. No acute indications for renal placement therapy but if within the next 24 hours renal function continues to worsen he will likely need to be started. (2) Pneumonia due to COVID-19 virus Current Visit: Yes Status: Acute Plan to address problem: Management per infectious disease recommendations. (3) Acute respiratory failure with hypoxia Current Visit: Yes Status: Acute Plan to address problem: Patient currently intubated at this time. Vent management per pulmonology recommendations. (4) Hypokalemia Current Visit: Yes Status: Acute Plan to address problem: Now showing evidence of hyperkalemia. Will give dose of Lasix today to increase potassium secretion. Subjective Date of service: 06/21/20 Principal diagnosis: Ac hypoxemic resp failure; COVID-19; Septic Shock; Zackery. PNA; GIRISH; Obesity Interval history: patient remains intubated on 2 pressors at this time. FiO2 of 80%. Remains oliguric but has produced approximately 200 cc of urine this morning. Is obtaining Lasix therapy. Objective - Exam Narrative Exam: Not directly examined in order to preserve PPE. - Vital Signs Vital signs: Vital Signs - 12hr 06/21/20 06/21/20 06/21/20 03:45 04:00 04:15 Temperature 97.1 F L Pulse Rate 91 H 97 H 101 H Pulse Rate [ 84 From Monitor] Respiratory 30 H 30 H 30 H Rate Blood Pressure 115/60 106/68 115/70 O2 Sat by Pulse 99 99 99 Oximetry 06/21/20 06/21/20 06/21/20 04:30 04:39 04:45 Temperature Pulse Rate 95 H 100 H 97 H Pulse Rate [ From Monitor] Respiratory 30 H 30 H Rate Blood Pressure 111/65 111/65 115/59 O2 Sat by Pulse 99 99 98 Oximetry 06/21/20 06/21/20 06/21/20 05:00 05:15 05:30 Temperature Pulse Rate 83 93 H 98 H Pulse Rate [ From Monitor] Respiratory 30 H 30 H 30 H Rate Blood Pressure 115/60 117/67 110/64 O2 Sat by Pulse 99 99 98 Oximetry 06/21/20 06/21/20 06/21/20 05:45 06:00 06:15 Temperature Pulse Rate 89 95 H 91 H Pulse Rate [ From Monitor] Respiratory 30 H 30 H 30 H Rate Blood Pressure 110/65 114/66 104/56 O2 Sat by Pulse 99 98 98 Oximetry 06/21/20 06/21/20 06/21/20 06:30 06:46 07:00 Temperature Pulse Rate 87 94 H 90 Pulse Rate [ From Monitor] Respiratory 30 H 30 H 30 H Rate Blood Pressure 114/62 109/63 106/59 O2 Sat by Pulse 99 99 99 Oximetry 06/21/20 06/21/20 06/21/20 07:15 07:30 07:45 Temperature Pulse Rate 85 88 90 Pulse Rate [ From Monitor] Respiratory 30 H 30 H 30 H Rate Blood Pressure 112/61 102/65 107/63 O2 Sat by Pulse 98 99 99 Oximetry 06/21/20 06/21/20 06/21/20 08:00 08:15 08:30 Temperature 97.7 F Pulse Rate 89 92 H 93 H Pulse Rate [ 95 H From Monitor] Respiratory 11 L 20 15 Rate Blood Pressure 106/60 112/62 110/56 O2 Sat by Pulse 98 99 100 Oximetry 06/21/20 06/21/20 06/21/20 08:45 08:57 09:00 Temperature Pulse Rate 90 79 92 H Pulse Rate [ From Monitor] Respiratory 30 H 30 H Rate Blood Pressure 105/61 105/61 107/61 O2 Sat by Pulse 100 99 100 Oximetry 06/21/20 06/21/20 06/21/20 09:15 09:30 09:45 Temperature Pulse Rate 93 H 94 H 91 H Pulse Rate [ From Monitor] Respiratory 30 H 30 H 30 H Rate Blood Pressure 105/59 99/55 104/56 O2 Sat by Pulse 100 100 100 Oximetry 06/21/20 06/21/20 06/21/20 10:00 10:15 10:30 Temperature Pulse Rate 89 78 90 Pulse Rate [ From Monitor] Respiratory 30 H 30 H 30 H Rate Blood Pressure 107/61 104/59 107/62 O2 Sat by Pulse 100 100 100 Oximetry 06/21/20 06/21/20 06/21/20 10:45 11:00 11:15 Temperature Pulse Rate 95 H 103 H 86 Pulse Rate [ From Monitor] Respiratory 30 H 30 H 30 H Rate Blood Pressure 87/58 99/63 91/54 O2 Sat by Pulse 100 100 100 Oximetry 06/21/20 06/21/20 06/21/20 11:30 11:45 12:00 Temperature 97.0 F L Pulse Rate 93 H 89 87 Pulse Rate [ 88 From Monitor] Respiratory 30 H 30 H 30 H Rate Blood Pressure 102/52 104/56 93/59 O2 Sat by Pulse 100 100 100 Oximetry 06/21/20 06/21/20 06/21/20 12:15 12:30 12:40 Temperature Pulse Rate 92 H 88 99 H Pulse Rate [ From Monitor] Respiratory 30 H 30 H Rate Blood Pressure 107/56 105/54 105/54 O2 Sat by Pulse 100 100 100 Oximetry 06/21/20 06/21/20 06/21/20 12:45 13:00 13:15 Temperature Pulse Rate 109 H 96 H 83 Pulse Rate [ From Monitor] Respiratory 30 H 30 H 30 H Rate Blood Pressure 100/52 101/59 111/58 O2 Sat by Pulse 100 99 100 Oximetry 06/21/20 06/21/20 06/21/20 13:30 13:45 14:00 Temperature Pulse Rate 89 89 88 Pulse Rate [ From Monitor] Respiratory 30 H 30 H 30 H Rate Blood Pressure 102/53 92/52 96/56 O2 Sat by Pulse 99 99 99 Oximetry 06/21/20 06/21/20 06/21/20 14:15 14:30 14:45 Temperature Pulse Rate 93 H 90 100 H Pulse Rate [ From Monitor] Respiratory 30 H 30 H 30 H Rate Blood Pressure 98/56 98/58 94/52 O2 Sat by Pulse 99 99 100 Oximetry - Lab 06/21/20 04:00 06/21/20 05:00 Most recent lab results ABG pH 7.099 (7.320-7.450) L 06/20/20 20:00 Calcium 6.5 mg/dL (8.4-10.2) L D 06/21/20 05:00 Magnesium 2.70 mg/dL (1.7-2.3) H 06/18/20 20:33 Urine Creatinine 192.4 mg/dL (0.1-20.0) H 06/18/20 15:00 Urine Sodium 28 mmol/L 06/18/20 15:00 Medications & Allergies - Medications Allergies/Adverse Reactions: Allergies No Known Allergies Allergy (Unverified 06/17/20 14:24) Home Medications: Home Medications Medication Instructions Recorded Confirmed Last Taken Type Losartan/Hydrochlorothiazide 1 each PO QDAY 06/19/20 06/19/20 Unknown History [Losartan-Hctz 100-25 mg Tab] amLODIPine [Norvasc] 5 mg PO DAILY 06/19/20 06/19/20 Unknown History Active Medications: Generic Name Dose Route Start Last Admin Trade Name Freq PRN Reason Stop Dose Admin Acetaminophen 650 mg 06/17/20 14:17 06/19/20 06:42 Acetaminophen 325 Mg Tab PO 650 mg Q4H PRN Administration Pain MILD(1-3)/Fever >100.5/ROBERTS Lipase/Protease/Amylase 1 each 06/19/20 12:15 Lipase 10,500/Protease 25,000/Amylase 43,750 (Units) Dr Kulkarni FEEDTUBE PRN PRN For Clogged Feeding Tube Ascorbic Acid 250 mg 06/17/20 22:00 06/21/20 09:00 Ascorbic Acid 250 Mg Tab PO 250 mg BID CONNOR Administration Cholecalciferol 1,000 unit 06/18/20 10:00 06/21/20 09:00 Cholecalciferol (Vit D3) 1000 Unit (25 Mcg) Tab PO 1,000 unit DAILY CONNOR Administration Dexamethasone 6 mg 06/18/20 22:00 06/21/20 08:59 Dexamethasone 4 Mg/Ml Vial IV 06/28/20 10:01 6 mg Q12HR CONNOR Administration Famotidine 20 mg 06/20/20 11:00 06/21/20 08:59 Famotidine 20 Mg/2 Ml Inj IV 20 mg DAILY CONNOR Administration Fentanyl 50 mcg 06/18/20 01:02 06/18/20 01:22 Fentanyl 100 Mcg/2 Ml Inj IV 50 mcg Q10MIN PRN Administration ANALGESIA Furosemide 60 mg 06/20/20 18:00 06/21/20 05:41 Furosemide 40 Mg/4 Ml Inj IV 60 mg 0600,1800 CONNOR Administration Heparin Sodium (Porcine) 4,500 unit 06/19/20 11:34 06/19/20 12:37 Heparin 10,000 Units/10 Ml Vial 40 unit/kg (4500 unit) 4,500 unit IV Administration Q6H PRN Anti-Xa Assay < 0.1 units/ml Hydrophilic Ointment 1 applic 06/17/20 22:52 Lip Therapy Vaseline TP Q2HR PRN Dry Lips REMDESIVIR 100 mg/ Sodium 250 mls @ 500 mls/hr 06/18/20 21:00 06/20/20 21:31 Chloride IV 06/21/20 21:29 500 mls/hr Q24HR@2100 CONNOR Administration Norepinephrine 4 mg in 250 mls @ 7.5 mls/hr 06/18/20 00:00 06/21/20 13:43 Levophed Drip 4 Mg/Ns 250 Ml IV 6 mcg/min TITR CONNOR 22.5 mls/hr Administration Protocol 2 MCG/MIN Propofol 1,000 mg in 100 mls @ 3.402 mls/hr 06/18/20 01:00 06/21/20 10:41 Diprivan 10 Mg/Ml IV 15 mcg/kg/min TITR CONNOR 10.206 mls/hr Administration Protocol 5 MCG/KG/MIN Fentanyl Citrate 2,000 mcg in 100 mls @ 5.67 mls/hr 06/18/20 02:00 06/21/20 14:44 Fentanyl Drip Premix IV 4 mcg/kg/hr TITR CONNOR 22.68 mls/hr Administration Protocol 1 MCG/KG/HR Vasopressin 20 unit/ Sodium 101 mls @ 9.09 mls/hr 06/18/20 10:00 06/21/20 12:15 Chloride IV 0.03 units/min TITR CONNOR 9.09 mls/hr Administration Protocol 0.03 UNITS/MIN Sodium Chloride 500 mls @ 1 mls/hr 06/18/20 09:38 06/19/20 21:37 Nacl 0.9% 500 Ml IV 0 mls/hr DIRECT PRN Infusion ARTERIAL LINE FLUSH Dextrose/Sodium Chloride 1,000 mls @ 75 mls/hr 06/18/20 12:00 06/21/20 00:23 D5ns IV 75 mls/hr DIRECT CONNOR Administration Heparin Sodium/Sodium Chloride 25,000 unit in 500 mls @ 30 mls/hr 06/19/20 12:00 06/21/20 10:42 Heparin/ 0.45% Nacl-25,000 Unit/500 Ml IV 1,300 units/hr TITR CONNOR 26 mls/hr Titration Protocol 1,500 UNITS/HR Cefepime HCl 2 gm in 100 mls @ 200 mls/hr 06/21/20 10:00 06/21/20 09:00 Cefepime/Ns 2 Gm/100 Ml IV 200 mls/hr Q24HR CONNOR Administration Protocol Insulin Human Regular 0 units 06/18/20 12:00 06/21/20 12:57 Insulin Regular, Human 100 Units/1 Ml SUB-Q 2 units Q6HR CONNOR Administration Protocol Lorazepam 1 mg 06/17/20 17:05 06/17/20 17:10 Lorazepam 2 Mg/Ml Vial IV 1 mg BID PRN Administration Anxiety Multi-Ingred Cream/Lotion/Oil/Oint 1 applic 06/17/20 22:52 Mineral Oil/Petrolatum, White Ophth Oint 3.5 Gm OU Q4HR PRN Dry Eye(s) Ondansetron HCl 4 mg 06/17/20 14:17 Ondansetron 4 Mg/2 Ml Inj IV Q8H PRN Nausea And Vomiting Simple Syrup 15 ml 06/19/20 12:15 Simple Syrup 15 Ml FEEDTUBE PRN PRN Hypoglycemia Simple Syrup 30 ml 06/19/20 12:15 Simple Syrup 15 Ml FEEDTUBE PRN PRN Hypoglycemia Sodium Bicarbonate 325 mg 06/19/20 12:15 Sodium Bicarbonate 325 Mg Tab FEEDTUBE PRN PRN For Clogged Feeding Tube Sodium Chloride 10 ml 06/17/20 22:00 06/21/20 09:00 Sodium Chloride 0.9% 10 Ml Flush Syringe IV 10 ml BID CONNOR Administration Sodium Chloride 10 ml 06/17/20 14:17 Sodium Chloride 0.9% 10 Ml Flush Syringe IV PRN PRN LINE FLUSH Zinc Sulfate 220 mg 06/17/20 22:00 06/21/20 09:00 Zinc Sulfate 220 Mg Cap PO 220 mg BID CONNOR Administration
--- NOTE | 2020-06-21 16:43 | Progress Note ---
Assessment and Plan 59-year-old white male who was admitted for pneumonia secondary to Covid with associated respiratory failure and sepsis. Acute metabolic encephalopathy -Due to severe sepsis and severe hypoxia -CT head ordered (patient is too unstable to do the scan), currently intubated, continue supportive care with frequent neuro check Acute hypoxic respiratory failure -Due to severe COVID-19 pneumonia -Intubated following admission overnight as patient was unable to maintain oxygenation with 100% FiO2 with BiPAP -Critical care following, frequent nebulizer breathing treatment, empiric steroid Severe septic shock -Patient currently on 2 pressor support -Wean off as tolerated COVID-19 pneumonia -Follow inflammatory markers, ID consulted --Patient initially tested positive for COVID-19 virus about 2 weeks before this admission -CXR shows patchy parenchymal disease which represent pulmonary edema or atypical pneumonia -Placed on dexamethasone for total 10 days and remdesivir total 5 days as long as renal function is optimal -hold off if CrCl<30 -Continue empiric antibiotics for now per ID recommendation -Droplet/contact isolation -Continue SPO2 monitoring -Supplemental oxygen as needed -Pulmonary hygiene, Prone intermittently to improve oxygenation -Vitamin C, vitamin D, zinc -Anticoagulation per protocol -Lasix IV as needed to prevent pulmonary edema GIRISH, likely ATN -Follow BMP daily, avoid nephrotoxins -Consult nephrology, follow recommendations hypokalemia, repleted Supraventricular tachycardia/paroxysmal atrial fibrillation -likely due to severe sepsis -Patient currently on 2 pressor, will initiate IV amiodarone drip for rate control if needed -Consulted cardiology, echo ordered currently pending -Placed on heparin drip Elevated LFT, due to shock liver from severe sepsis and COVID-19 infection -Continue to trend DVT prophylaxis, per Covid protocol The high probability of a clinically significant, sudden or life threatening deterioration of the [[facility], 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 The aggregate critical care time was [42] minutes. This time is in addition to time spent performing reported procedures but includes the following: [x] Data Review and interpretation [x] Patient assessment and monitoring of vital signs [x] Documentation [x] Medication orders and management daily course: 06/18: Patient got intubated overnight. Patient was placed on BiPAP to maintain oxygenation with 100% FiO2 but apparently he found to take off his argueta which made his oxygen saturation go down at 60s/50s and patient was found altered mental status. Code met was called immediately. Patient was transferred to ICU and intubated, patient currently on 2 pressors, intubated with 100% FiO2, renal function noted to be decline, nephrology consulted. Discussed with [facility] physician Dr. Thompson and requested call back on Saturday. Poor prognosis, continue to monitor with aggressive supportive care. Also called family/ to update clinical status. 06/19: Repeat COVID test was positive. cont cefepime, remdesivir per ID recommendation. follow inflammatory markers, cbc, bmp. placed on heparin drip for atrial fib 06/20: Remains on mechanical ventilation, on 2 pressors, on heparin drip. discussed with and daughter by phone. Renal function declining. cont supportive care for now. 06/21: Renal function cont to decline, urine outpt sig decreased. started on lasix 80mg BID, plan to follow urine output, if no improvement patient need to start on HD. called and daughter today. updated all clinical details. Also discussed clinical condition with Alex AYALA. Subjective Date of service: 06/21/20 Principal diagnosis: ARF/Septic Shock/COVID-19 PNA, AF with RVR Interval history: Patient seen and examined Currently on 2 pressors, mechanically ventilated and sedated Noted vitals, lab results reviewed Discussed with RN at the bedside and critical care attending Objective - Exam Narrative Exam: Limited physical exam due to COVID-19 pandemic to minimize transmission of the disease and to preserve PPE. Vital reviewed and stable. GENERAL: well-developed obese white male lying on bed who is mechanically ventilated and sedated. HEENT: Normocephalic. Atraumatic. NECK: Supple. CHEST/LUNGS: On mechanical ventilation HEART/CARDIOVASCULAR: Tachycardic ABDOMEN: Visibly not distended SKIN: There is no rash NEURO: Patient is intubated MUSCULOSKELETAL: No joint effusion EXTRIMITY: no cyanosis or clubbing. PSYCH: Unable to assess. - Constitutional Vitals: Vital Signs - 12hr 06/21/20 06/21/20 06/21/20 04:45 05:00 05:15 Temperature Pulse Rate 97 H 83 93 H Pulse Rate [ From Monitor] Respiratory 30 H 30 H 30 H Rate Blood Pressure 115/59 115/60 117/67 O2 Sat by Pulse 98 99 99 Oximetry 06/21/20 06/21/20 06/21/20 05:30 05:45 06:00 Temperature Pulse Rate 98 H 89 95 H Pulse Rate [ From Monitor] Respiratory 30 H 30 H 30 H Rate Blood Pressure 110/64 110/65 114/66 O2 Sat by Pulse 98 99 98 Oximetry 06/21/20 06/21/20 06/21/20 06:15 06:30 06:46 Temperature Pulse Rate 91 H 87 94 H Pulse Rate [ From Monitor] Respiratory 30 H 30 H 30 H Rate Blood Pressure 104/56 114/62 109/63 O2 Sat by Pulse 98 99 99 Oximetry 06/21/20 06/21/20 06/21/20 07:00 07:15 07:30 Temperature Pulse Rate 90 85 88 Pulse Rate [ From Monitor] Respiratory 30 H 30 H 30 H Rate Blood Pressure 106/59 112/61 102/65 O2 Sat by Pulse 99 98 99 Oximetry 06/21/20 06/21/20 06/21/20 07:45 08:00 08:15 Temperature 97.7 F Pulse Rate 90 89 92 H Pulse Rate [ 95 H From Monitor] Respiratory 30 H 11 L 20 Rate Blood Pressure 107/63 106/60 112/62 O2 Sat by Pulse 99 98 99 Oximetry 06/21/20 06/21/20 06/21/20 08:30 08:45 08:57 Temperature Pulse Rate 93 H 90 79 Pulse Rate [ From Monitor] Respiratory 15 30 H Rate Blood Pressure 110/56 105/61 105/61 O2 Sat by Pulse 100 100 99 Oximetry 06/21/20 06/21/20 06/21/20 09:00 09:15 09:30 Temperature Pulse Rate 92 H 93 H 94 H Pulse Rate [ From Monitor] Respiratory 30 H 30 H 30 H Rate Blood Pressure 107/61 105/59 99/55 O2 Sat by Pulse 100 100 100 Oximetry 06/21/20 06/21/20 06/21/20 09:45 10:00 10:15 Temperature Pulse Rate 91 H 89 78 Pulse Rate [ From Monitor] Respiratory 30 H 30 H 30 H Rate Blood Pressure 104/56 107/61 104/59 O2 Sat by Pulse 100 100 100 Oximetry 06/21/20 06/21/20 06/21/20 10:30 10:45 11:00 Temperature Pulse Rate 90 95 H 103 H Pulse Rate [ From Monitor] Respiratory 30 H 30 H 30 H Rate Blood Pressure 107/62 87/58 99/63 O2 Sat by Pulse 100 100 100 Oximetry 06/21/20 06/21/20 06/21/20 11:15 11:30 11:45 Temperature Pulse Rate 86 93 H 89 Pulse Rate [ From Monitor] Respiratory 30 H 30 H 30 H Rate Blood Pressure 91/54 102/52 104/56 O2 Sat by Pulse 100 100 100 Oximetry 06/21/20 06/21/20 06/21/20 12:00 12:15 12:30 Temperature 97.0 F L Pulse Rate 87 92 H 88 Pulse Rate [ 88 From Monitor] Respiratory 30 H 30 H 30 H Rate Blood Pressure 93/59 107/56 105/54 O2 Sat by Pulse 100 100 100 Oximetry 06/21/20 06/21/20 06/21/20 12:40 12:45 13:00 Temperature Pulse Rate 99 H 109 H 96 H Pulse Rate [ From Monitor] Respiratory 30 H 30 H Rate Blood Pressure 105/54 100/52 101/59 O2 Sat by Pulse 100 100 99 Oximetry 06/21/20 06/21/20 06/21/20 13:15 13:30 13:45 Temperature Pulse Rate 83 89 89 Pulse Rate [ From Monitor] Respiratory 30 H 30 H 30 H Rate Blood Pressure 111/58 102/53 92/52 O2 Sat by Pulse 100 99 99 Oximetry 06/21/20 06/21/20 06/21/20 14:00 14:15 14:30 Temperature Pulse Rate 88 93 H 90 Pulse Rate [ From Monitor] Respiratory 30 H 30 H 30 H Rate Blood Pressure 96/56 98/56 98/58 O2 Sat by Pulse 99 99 99 Oximetry 06/21/20 14:45 Temperature Pulse Rate 100 H Pulse Rate [ From Monitor] Respiratory 30 H Rate Blood Pressure 94/52 O2 Sat by Pulse 100 Oximetry - Labs CBC & Chem 7: 06/23/20 04:00 06/23/20 04:00 Labs: Abnormal lab results 06/20/20 06/20/20 06/20/20 Range/Units 17:28 20:00 23:29 Heparin Anti-Xa Level (0.3-0.7) U.I./ml ABG pH 7.099 L (7.320-7.450) POC ABG pCO2 61.1 H (32.0-48.0) mmHg POC ABG pO2 (83-108) mmHg ABG Oxyhemoglobin (94-98) ABG Potassium 5.0 H (3.40-4.50) mmol/L ABG Chloride 111.0 H (98-107) mmol/L ABG Glucose 200 H (65-95) mg/dL Carboxyhemoglobin 0.4 L (0.5-1.5) Chloride (98-107) mmol/L Carbon Dioxide (22-30) mmol/L BUN (9-20) mg/dL Creatinine (0.8-1.3) mg/dL Glucose (75-100) mg/dL POC Glucose 165 H 145 H (70-105) mg/dL Calcium (8.4-10.2) mg/dL AST (5-40) units/L ALT (7-56) units/L Total Protein (6.3-8.2) g/dL Albumin (3.9-5) g/dL Triglycerides (2-149) mg/dL Arterial Blood Glucose 200 H (65-95) mg/dL Arterial Blood Ionized Calcium 4.2 L (4.6-5.3) mg/dL 06/21/20 06/21/20 06/21/20 Range/Units 05:00 05:20 08:56 Heparin Anti-Xa Level 0.28 L (0.3-0.7) U.I./ml ABG pH (7.320-7.450) POC ABG pCO2 (32.0-48.0) mmHg POC ABG pO2 (83-108) mmHg ABG Oxyhemoglobin (94-98) ABG Potassium (3.40-4.50) mmol/L ABG Chloride (98-107) mmol/L ABG Glucose (65-95) mg/dL Carboxyhemoglobin (0.5-1.5) Chloride 112.0 H (98-107) mmol/L Carbon Dioxide 20 L (22-30) mmol/L BUN 92 H (9-20) mg/dL Creatinine 3.9 H D (0.8-1.3) mg/dL Glucose 214 H (75-100) mg/dL POC Glucose 191 H (70-105) mg/dL Calcium 6.5 L D (8.4-10.2) mg/dL AST 98 H (5-40) units/L ALT 84 H (7-56) units/L Total Protein 4.6 L (6.3-8.2) g/dL Albumin 2.1 L (3.9-5) g/dL Triglycerides 180 H (2-149) mg/dL Arterial Blood Glucose (65-95) mg/dL Arterial Blood Ionized Calcium (4.6-5.3) mg/dL 06/21/20 06/21/20 06/21/20 Range/Units 11:12 12:43 Unknown Heparin Anti-Xa Level 0.78 H (0.3-0.7) U.I./ml ABG pH 7.184 L (7.320-7.450) POC ABG pCO2 48.3 H (32.0-48.0) mmHg POC ABG pO2 172.1 H (83-108) mmHg ABG Oxyhemoglobin 98.7 H (94-98) ABG Potassium 4.9 H (3.40-4.50) mmol/L ABG Chloride 112.0 H (98-107) mmol/L ABG Glucose 196 H (65-95) mg/dL Carboxyhemoglobin 0.2 L (0.5-1.5) Chloride (98-107) mmol/L Carbon Dioxide (22-30) mmol/L BUN (9-20) mg/dL Creatinine (0.8-1.3) mg/dL Glucose (75-100) mg/dL POC Glucose 177 H (70-105) mg/dL Calcium (8.4-10.2) mg/dL AST (5-40) units/L ALT (7-56) units/L Total Protein (6.3-8.2) g/dL Albumin (3.9-5) g/dL Triglycerides (2-149) mg/dL Arterial Blood Glucose 196 H (65-95) mg/dL Arterial Blood Ionized Calcium 4.1 L (4.6-5.3) mg/dL HEART Score - HEART Score Troponin: Troponin T < 0.010 ng/mL (0.00-0.029) 06/17/20 12:33
[2020-06-21] MEDS: HEPARIN/ 0.45% NACL DRIP 25,000 UNIT/500 ML BAG IV SCH (17:38)
[2020-06-21] MEDS: REMDESIVIR 100 MG in SODIUM CHLORIDE 0.9% 250ML 250 ML IV SCH (21:00)
[2020-06-22] MEDS: INSULIN REGULAR, HUMAN 100 UNITS/1 ML SUB-Q SCH ×4 (00:22→17:43)
[2020-06-22] MEDS: NORepinephrine/NS 4 MG-250 ML 4 MG/250 ML BAG IV SCH ×4 (02:21→22:45)
[2020-06-22] MEDS: fentaNYL DRIP Premix 2,000 MCG/100 ML BAG IV SCH ×6 (02:21→21:34)
[2020-06-22] MEDS: FUROSEMIDE 40 MG/4 ML INJ IV SCH ×2 (06:07→17:03)
[2020-06-22 06:32] LABS: Hematocrit 35.2 % (35.5-45.6); Hemoglobin 11.7 gm/dl (11.8-15.2); Mean Corpuscular HGB Conc 33 % (32-34); Mean Corpuscular Volume 89 fl (84-94); Platelet Count 205 K/mm3 (140-440); Red Blood Count 3.94 M/mm3 (3.65-5.03); Red Cell Distribution Width 15.8 % (13.2-15.2)
[2020-06-22 07:59] LABS: Calcium 6.7 mg/dL (8.4-10.2)
--- NOTE | 2020-06-22 08:53 | XRay Report ---
CHEST 1 VIEW INDICATION: follow up respiratory failure COMPARISON: 06/21/2020 FINDINGS: SUPPORT DEVICES: Endotracheal tubes in good position. Nasogastric tube has tip below diaphragm. HEART / MEDIASTINUM: No significant abnormality. LUNGS / PLEURA: Persistent pulmonary process noted left lung more severe effected than right. No pneu mothorax. ADDITIONAL FINDINGS: IMPRESSION: 1. No interval change as compared to previous exam Signer Name: Chapin Adam MD Signed: 06/22/2020 8:48 AM Workstation Name: [id number]
[2020-06-22] MEDS: CEFEPIME/NS 2 GM/100 ML 2 GM/100 ML BAG IV SCH (08:59)
[2020-06-22] MEDS: CHOLECALCIFEROL (VIT D3) 1000 UNIT (25 mcg) TAB PO SCH (08:59)
[2020-06-22] MEDS: ZINC SULFATE 220 MG CAP PO SCH ×2 (08:59→21:08)
[2020-06-22] MEDS: FAMOTIDINE 20 MG/2 ML INJ IV SCH (08:59)
[2020-06-22] MEDS: dexAMETHasone 4 MG/ML VIAL IV SCH ×2 (08:59→21:09)
[2020-06-22] MEDS: ASCORBIC ACID 250 MG TAB PO SCH ×2 (08:59→21:09)
[2020-06-22] MEDS: VASOPRESSIN 20 UNIT in SODIUM CHLORIDE 0.9% 100 ML IV SCH ×2 (09:57→21:08)
--- NOTE | 2020-06-22 10:44 | Progress Note ---
Assessment and Plan Pt in AFib HR 90s. Agree with present cardiac management. Consider IV amio if necessary for HR optimization. Obtain tte once COVID-19 infection is adequately managed. Cont vasopressors and supportive management per primary/critical care team. Renal indices trending upwards - for possible MANAGER FLOAT per nephrology team. Pt is critically ill. Overall guarded prognosis. The patient has been seen in conjunction with Dr. Chavis who agrees with the assessment and plan of care. - Patient Problems (1) Acute respiratory failure with hypoxia Current Visit: Yes Status: Acute (2) Pneumonia due to COVID-19 virus Current Visit: Yes Status: Acute (3) Sepsis Current Visit: Yes Status: Acute Qualifiers: Severe sepsis acute organ dysfunction type: acute respiratory failure Severe sepsis shock status: with septic shock (4) Atrial fibrillation with rapid ventricular response Current Visit: Yes Status: Acute (5) Acute renal failure Current Visit: Yes Status: Acute (6) Elevated LFTs Current Visit: Yes Status: Acute Subjective Date of service: 06/22/20 Principal diagnosis: ARF/Septic Shock/COVID-19 PNA, AF with RVR Interval history: pt remains intubated, sedated, in prone position. requiring multiple vasopressors. on heparin gtt. tele reviewed - in AFib/AFlutter HR 90s, intermittent AFib RVR HR 130s noted overnight. Objective Last Vital Signs Temp 97.9 F 06/22/20 08:00 Pulse 98 H 06/22/20 09:15 Resp 30 H 06/22/20 09:15 BP 108/39 06/22/20 09:15 Pulse Ox 99 06/22/20 09:15 - Physical Examination General: Other (intubated, sedated, prone position ) Neck: Positive: neck supple Cardiac: Positive: irregularly irregular, S1/S2 Lungs: Positive: Decreased Breath Sounds Neuro: Positive: Other (intubated, sedated, prone position ) Skin: Negative: Rash - Labs and Meds CBC 06/22/20 Range/Units 05:30 WBC 33.9 H (4.5-11.0) K/mm3 RBC 3.94 (3.65-5.03) M/mm3 Hgb 11.7 L (11.8-15.2) gm/dl Hct 35.2 L (35.5-45.6) % Plt Count 205 (140-440) K/mm3 Comprehensive Metabolic Panel 06/22/20 Range/Units 05:30 Sodium 142 (137-145) mmol/L Potassium 5.7 H (3.6-5.0) mmol/L Chloride 111.3 H (98-107) mmol/L Carbon Dioxide 18 L (22-30) mmol/L BUN 112 H (9-20) mg/dL Creatinine 5.0 H (0.8-1.3) mg/dL Glucose 173 H (75-100) mg/dL Calcium 6.7 L (8.4-10.2) mg/dL - Imaging and Cardiology EKG: report reviewed, image reviewed - Telemetry EKG Rhythm: Atrial Fibrillation - Allied health notes Allied health notes reviewed: RT
--- NOTE | 2020-06-22 12:31 | Progress Note ---
Assessment and Plan Acute hypoxemic respiratory failure due to COVID-19 Severe COVID infection Severe Sepsis with shock Bilateral pneumonia Acute kidney injury (GIRISH) with acute tubular necrosis (ATN) Elevated liver enzymes Obesity - repeat Procalcitonin & CRP re: ? steroid leucocytosis - hold tube feeds - begin Reglan re: high residuals - again reduced FiO2 to 70% - get trialysis catheter re: dialysis and discontinue femoral CVL - HD/UF per nephrology team - continue daily proning for > 12 hours - follow lower extremity dopplers r/o DVT - continue care as below otherwise; - rate control per cardiology team for afib RVR - Antibiotics per ID, on going fevers (Cefepime) - Continue to wean supplemental oxygen for O2 sats >92% - Monitor blood pressure closely while optimizing sedation,wean vasopressor support for MAP > 65 mmHg - Critical care prone positioning - Agitation management, keep RASS -4 to allow for critical proning - VAP bundle addressed, aspiration precautions HOB >40 - continue lung protective strategies, permissive hypercapnic acceptable. - continue bronchodilators with pulmonary hygiene per RT - wean per pulmonary driven protocols otherwise - accuchecks with glycemic control per SSI (While critically ill target blood glucose of 140-180 mg/dL; avoid hypoglycemia) - sedation prn for target RASS -1 to -2 - continue enteral nutritional support at goal rate as tolerated - Monitor liver function test ,avoid hepatotoxic agents - azotemia per nephrology rec's - Avoid nephrotoxins, renally dose all medications, conservative fluid management - continue to avoid benzodiazepines, reduce the possibility of delirium, - prn analgesia per CPOT score - Maintenance of sleep-wake cycle, avoid delirium - Stress ulcer prophylaxis, Famotidine - PT/OT/ROM exercises - Mobility protocols for pressure ulcer prevention - CXR, ABG in am - CBC, CMP in am - Supportive transfusions to keep HgB >7g/dL - Monitor hemodynamics closely - continue other care per attending / other consultants COVID SPECIFIC INTERVENTIONS - continue steroids: Dexamethasone - continue with Remdesivir - monitor inflammatory markers - ferritin, D-dimer, CRP, LDH every 3 days per facility protocol - continue anticoagulation per System Protocol based on d-dimer - continue contact and airborne isolation CONDITION: CRITICAL PROGNOSIS: GUARDED CODE STATUS: FULL CODE The high probability of a clinically significant, sudden or life-threatening deterioration of the [respiratory, cardiovascular, hematologic & neurologic] system(s) required my full and direct attention, intervention and personal management. The aggregate critical care time was [37] minutes without overlap. Time includes spent on; [x] Data Review and interpretation [x] Patient assessment and monitoring of vital signs [x] Documentation [x] Medication orders and management He was evaluated in the context of the global COVID-19 pandemic, which necessitated consideration that the patient might be at risk for infection with the virus that causes COVID-19. Institutional protocols and algorithms that pertain to the evaluation of patients at risk for COVID-19 are in a state of rapid change based on information released by regulatory bodies including the CDC and federal and state organizations. These policies and algorithms were followed during the patient's care in the ICU Please note that these policies, procedures and recommendations changed on a rapid basis. Subjective Date of service: 06/22/20 Principal diagnosis: ARF/Septic Shock/COVID-19 PNA, AF with RVR Interval history: Patient is seen today for: Ac hypoxemic respiratory failure; COVID-19; Severe Sepsis with shock; Zackery. pneumonia; GIRISH; Elevated liver enzymes; Obesity Seen and examined at bedside; 24hour events reviewed; nursing and respiratory care staff consulted; no adverse overnight events reported to me; resting in bed; remains on MVS; back in prone position; FiO2 at 80% but room to wean; residuals high (700's) and tube feeds held; no emesis or overt aspiration; remains on levophed & vasopressin Objective Vital Signs - 12hr 06/22/20 06/22/20 06/22/20 00:30 00:31 00:45 Temperature Pulse Rate 110 H 90 101 H Pulse Rate [ From Monitor] Respiratory 30 H 30 H Rate Blood Pressure 112/68 112/68 111/67 O2 Sat by Pulse 97 96 97 Oximetry 06/22/20 06/22/20 06/22/20 01:00 01:15 01:30 Temperature Pulse Rate 95 H 102 H 103 H Pulse Rate [ From Monitor] Respiratory 22 31 H 30 H Rate Blood Pressure 122/63 126/59 124/62 O2 Sat by Pulse 97 97 97 Oximetry 06/22/20 06/22/20 06/22/20 01:46 02:00 02:15 Temperature Pulse Rate 104 H 100 H 118 H Pulse Rate [ From Monitor] Respiratory 30 H 30 H 31 H Rate Blood Pressure 127/55 121/61 118/60 O2 Sat by Pulse 97 96 96 Oximetry 06/22/20 06/22/20 06/22/20 02:30 02:46 03:00 Temperature Pulse Rate 105 H 98 H 101 H Pulse Rate [ From Monitor] Respiratory 29 H 28 H 27 H Rate Blood Pressure 110/55 123/55 112/59 O2 Sat by Pulse 97 97 97 Oximetry 06/22/20 06/22/20 06/22/20 03:15 03:30 03:45 Temperature 97.9 F Pulse Rate 120 H 102 H 87 Pulse Rate [ From Monitor] Respiratory 30 H 27 H 22 Rate Blood Pressure 116/57 109/58 99/57 O2 Sat by Pulse 96 96 96 Oximetry 06/22/20 06/22/20 06/22/20 04:00 04:15 04:30 Temperature Pulse Rate 99 H 97 H 94 H Pulse Rate [ 95 H From Monitor] Respiratory 26 H 30 H 28 H Rate Blood Pressure 90/63 109/65 119/68 O2 Sat by Pulse 95 96 95 Oximetry 06/22/20 06/22/20 06/22/20 04:46 05:00 05:10 Temperature Pulse Rate 91 H 107 H 104 H Pulse Rate [ From Monitor] Respiratory 30 H 30 H Rate Blood Pressure 124/57 129/65 129/65 O2 Sat by Pulse 96 95 98 Oximetry 06/22/20 06/22/20 06/22/20 05:16 05:30 05:45 Temperature Pulse Rate 105 H 105 H 94 H Pulse Rate [ From Monitor] Respiratory 31 H 29 H 31 H Rate Blood Pressure 126/54 126/54 114/61 O2 Sat by Pulse 96 98 98 Oximetry 06/22/20 06/22/20 06/22/20 06:00 06:15 06:30 Temperature Pulse Rate 92 H 96 H 98 H Pulse Rate [ From Monitor] Respiratory 31 H 28 H 29 H Rate Blood Pressure 127/58 119/58 113/62 O2 Sat by Pulse 97 98 98 Oximetry 06/22/20 06/22/20 06/22/20 06:45 07:00 07:15 Temperature Pulse Rate 98 H 97 H 104 H Pulse Rate [ From Monitor] Respiratory 31 H 30 H 32 H Rate Blood Pressure 110/62 117/56 113/62 O2 Sat by Pulse 98 98 98 Oximetry 06/22/20 06/22/20 06/22/20 07:30 07:46 08:00 Temperature 97.9 F Pulse Rate 91 H 91 H 84 Pulse Rate [ 86 From Monitor] Respiratory 30 H 30 H 29 H Rate Blood Pressure 120/59 118/62 112/61 O2 Sat by Pulse 98 98 98 Oximetry 06/22/20 06/22/20 06/22/20 08:16 08:30 08:45 Temperature Pulse Rate 91 H 103 H 96 H Pulse Rate [ From Monitor] Respiratory 13 30 H 30 H Rate Blood Pressure 112/61 95/44 90/43 O2 Sat by Pulse 98 98 98 Oximetry 06/22/20 06/22/20 06/22/20 09:00 09:15 09:30 Temperature Pulse Rate 96 H 98 H 100 H Pulse Rate [ From Monitor] Respiratory 30 H 30 H 32 H Rate Blood Pressure 95/52 108/39 102/29 O2 Sat by Pulse 98 99 100 Oximetry 06/22/20 06/22/20 06/22/20 09:45 10:00 10:15 Temperature Pulse Rate 90 92 H 93 H Pulse Rate [ From Monitor] Respiratory 31 H 30 H 30 H Rate Blood Pressure 104/32 113/50 121/54 O2 Sat by Pulse 99 99 100 Oximetry 06/22/20 06/22/20 06/22/20 10:30 10:45 11:00 Temperature Pulse Rate 103 H 99 H 107 H Pulse Rate [ From Monitor] Respiratory 30 H 30 H 31 H Rate Blood Pressure 120/59 109/57 121/61 O2 Sat by Pulse 100 100 100 Oximetry Constitutional: other (morbidly obese, atraumatic, normocephalic, mild resp distress, orally intuabted) Eyes: non-icteric ENT: oropharynx moist, other (ETT 24 cm TROY) Neck: supple, no lymphadenopathy, other (Large , short neck) Effort: mildly labored Ascultation: Right: rhonchi (scant), Bilateral: diminished breath sounds Percussion: Bilateral: not dull Cardiovascular: irregular rhythm, other (S1,S2) Gastrointestinal: normoactive bowel sounds, non-distended Integumentary: rash, other (Femoral CVC, Newell catheter) Extremities: no edema, pink and warm, pulses normal, no ischemia or petechiae Neurologic: other (unable to assess, sedated) Psychiatric: other (unable to assess, sedated) CBC and BMP: 06/22/20 05:30 06/22/20 05:30 ABG, PT/INR, D-dimer: ABG ABG pH 7.169 (7.320-7.450) L 06/22/20 04:00 POC ABG pCO2 46.5 mmHg (32.0-48.0) 06/22/20 04:00 POC ABG pO2 88.8 mmHg (83-108) 06/22/20 04:00 POC ABG HCO3 16.5 06/22/20 04:00 PT/INR, D-dimer PT 16.4 Sec. (12.2-14.9) H 06/19/20 12:30 INR 1.32 (0.87-1.13) H 06/19/20 12:30 D-Dimer 939.89 ng/mlDDU (0-234) H 06/17/20 14:48 Abnormal lab findings: Abnormal Labs 06/17/20 06/17/20 06/17/20 12:33 12:33 12:33 WBC 19.5 H RBC 5.18 H Hgb 15.5 H Hct RDW Lymph % (Auto) 3.8 L Lymph # (Auto) 0.7 L Seg Neuts % (Manual) 99.0 H Lymphocytes % (Manual) 1.0 L Seg Neutrophils # 18.2 H Seg Neutrophils # Man 19.3 H Lymphocytes # (Manual) 0.2 L Monocytes # (Manual) PT 16.5 H INR 1.33 H D-Dimer 1025.04 H Heparin Anti-Xa Level ABG pH POC ABG pCO2 POC ABG pO2 ABG Oxyhemoglobin ABG Sodium ABG Potassium ABG Chloride ABG Glucose Carboxyhemoglobin Sodium 130 L Potassium 3.4 L Chloride 95.0 L Carbon Dioxide BUN 21 H Creatinine Glucose 137 H POC Glucose Lactic Acid Calcium 7.9 L Magnesium Ferritin AST 84 H ALT 67 H Lactate Dehydrogenase 437 H Total Creatine Kinase 310 H C-Reactive Protein 27.90 H Total Protein Albumin 2.9 L Triglycerides Arterial Blood Glucose Arterial Blood Ionized Calcium Urine Creatinine Urine Chloride Vancomycin Trough Coronavirus (PCR) 06/17/20 06/17/20 06/17/20 12:33 12:33 14:48 WBC RBC Hgb Hct RDW Lymph % (Auto) Lymph # (Auto) Seg Neuts % (Manual) Lymphocytes % (Manual) Seg Neutrophils # Seg Neutrophils # Man Lymphocytes # (Manual) Monocytes # (Manual) PT INR D-Dimer Heparin Anti-Xa Level ABG pH POC ABG pCO2 POC ABG pO2 ABG Oxyhemoglobin ABG Sodium ABG Potassium ABG Chloride ABG Glucose Carboxyhemoglobin Sodium Potassium Chloride Carbon Dioxide BUN Creatinine Glucose POC Glucose Lactic Acid 2.50 H* 2.20 H* Calcium Magnesium Ferritin 2297.0 H AST ALT Lactate Dehydrogenase Total Creatine Kinase C-Reactive Protein Total Protein Albumin Triglycerides Arterial Blood Glucose Arterial Blood Ionized Calcium Urine Creatinine Urine Chloride Vancomycin Trough Coronavirus (PCR) 06/17/20 06/17/20 06/17/20 14:48 14:48 14:48 WBC RBC Hgb Hct RDW Lymph % (Auto) Lymph # (Auto) Seg Neuts % (Manual) Lymphocytes % (Manual) Seg Neutrophils # Seg Neutrophils # Man Lymphocytes # (Manual) Monocytes # (Manual) PT INR D-Dimer 939.89 H Heparin Anti-Xa Level ABG pH POC ABG pCO2 POC ABG pO2 ABG Oxyhemoglobin ABG Sodium ABG Potassium ABG Chloride ABG Glucose Carboxyhemoglobin Sodium Potassium Chloride Carbon Dioxide BUN Creatinine Glucose 141 H POC Glucose Lactic Acid Calcium Magnesium Ferritin > 2000.0 H AST ALT Lactate Dehydrogenase 503 H Total Creatine Kinase C-Reactive Protein 24.70 H Total Protein Albumin Triglycerides Arterial Blood Glucose Arterial Blood Ionized Calcium Urine Creatinine Urine Chloride Vancomycin Trough Coronavirus (PCR) 06/17/20 06/17/20 06/17/20 16:54 19:39 23:43 WBC RBC Hgb Hct RDW Lymph % (Auto) Lymph # (Auto) Seg Neuts % (Manual) Lymphocytes % (Manual) Seg Neutrophils # Seg Neutrophils # Man Lymphocytes # (Manual) Monocytes # (Manual) PT INR D-Dimer Heparin Anti-Xa Level ABG pH 7.571 H POC ABG pCO2 24.3 L POC ABG pO2 41.6 L ABG Oxyhemoglobin 84.0 L ABG Sodium 131.0 L ABG Potassium ABG Chloride ABG Glucose 163 H Carboxyhemoglobin Sodium Potassium Chloride Carbon Dioxide BUN Creatinine Glucose POC Glucose 185 H Lactic Acid 2.10 H* Calcium Magnesium Ferritin AST ALT Lactate Dehydrogenase Total Creatine Kinase C-Reactive Protein Total Protein Albumin Triglycerides Arterial Blood Glucose 163 H Arterial Blood Ionized Calcium 4.4 L Urine Creatinine Urine Chloride Vancomycin Trough Coronavirus (PCR) 06/18/20 06/18/20 06/18/20 00:17 00:23 03:55 WBC RBC Hgb Hct RDW Lymph % (Auto) Lymph # (Auto) Seg Neuts % (Manual) Lymphocytes % (Manual) Seg Neutrophils # Seg Neutrophils # Man Lymphocytes # (Manual) Monocytes # (Manual) PT INR D-Dimer Heparin Anti-Xa Level ABG pH POC ABG pCO2 POC ABG pO2 56.5 L 48.3 L ABG Oxyhemoglobin 86.3 L 81.7 L ABG Sodium 132.9 L 131.0 L ABG Potassium ABG Chloride ABG Glucose 189 H 161 H Carboxyhemoglobin 0.4 L Sodium Potassium Chloride Carbon Dioxide BUN Creatinine Glucose POC Glucose Lactic Acid 3.80 H* Calcium Magnesium Ferritin AST ALT Lactate Dehydrogenase Total Creatine Kinase C-Reactive Protein Total Protein Albumin Triglycerides Arterial Blood Glucose 189 H 161 H Arterial Blood Ionized Calcium 4.3 L 4.2 L Urine Creatinine Urine Chloride Vancomycin Trough Coronavirus (PCR) 06/18/20 06/18/20 06/18/20 05:39 05:39 05:39 WBC 26.2 H RBC Hgb Hct RDW Lymph % (Auto) Lymph # (Auto) Seg Neuts % (Manual) 90.0 H Lymphocytes % (Manual) 5.0 L Seg Neutrophils # Seg Neutrophils # Man 23.6 H Lymphocytes # (Manual) Monocytes # (Manual) 1.3 H PT INR D-Dimer Heparin Anti-Xa Level ABG pH POC ABG pCO2 POC ABG pO2 ABG Oxyhemoglobin ABG Sodium ABG Potassium ABG Chloride ABG Glucose Carboxyhemoglobin Sodium 135 L Potassium Chloride 97.5 L Carbon Dioxide 21 L BUN 39 H Creatinine 1.7 H D Glucose 168 H POC Glucose Lactic Acid 3.40 H* Calcium 7.2 L Magnesium Ferritin AST ALT Lactate Dehydrogenase Total Creatine Kinase C-Reactive Protein Total Protein Albumin Triglycerides Arterial Blood Glucose Arterial Blood Ionized Calcium Urine Creatinine Urine Chloride Vancomycin Trough Coronavirus (PCR) 06/18/20 06/18/20 06/18/20 07:24 09:00 10:10 WBC RBC Hgb Hct RDW Lymph % (Auto) Lymph # (Auto) Seg Neuts % (Manual) Lymphocytes % (Manual) Seg Neutrophils # Seg Neutrophils # Man Lymphocytes # (Manual) Monocytes # (Manual) PT INR D-Dimer Heparin Anti-Xa Level ABG pH POC ABG pCO2 POC ABG pO2 ABG Oxyhemoglobin ABG Sodium ABG Potassium ABG Chloride ABG Glucose Carboxyhemoglobin Sodium Potassium Chloride Carbon Dioxide BUN Creatinine Glucose POC Glucose Lactic Acid 2.90 H* 3.20 H* Calcium Magnesium Ferritin AST ALT Lactate Dehydrogenase Total Creatine Kinase C-Reactive Protein Total Protein Albumin Triglycerides Arterial Blood Glucose Arterial Blood Ionized Calcium Urine Creatinine Urine Chloride Vancomycin Trough Coronavirus (PCR) Positive A 06/18/20 06/18/20 06/18/20 11:58 14:43 15:00 WBC RBC Hgb Hct RDW Lymph % (Auto) Lymph # (Auto) Seg Neuts % (Manual) Lymphocytes % (Manual) Seg Neutrophils # Seg Neutrophils # Man Lymphocytes # (Manual) Monocytes # (Manual) PT INR D-Dimer Heparin Anti-Xa Level ABG pH 7.303 L POC ABG pCO2 POC ABG pO2 82.3 L ABG Oxyhemoglobin ABG Sodium 135.3 L ABG Potassium ABG Chloride ABG Glucose 215 H Carboxyhemoglobin 0.3 L Sodium Potassium Chloride Carbon Dioxide BUN Creatinine Glucose POC Glucose 209 H Lactic Acid Calcium Magnesium Ferritin AST ALT Lactate Dehydrogenase Total Creatine Kinase C-Reactive Protein Total Protein Albumin Triglycerides Arterial Blood Glucose 215 H Arterial Blood Ionized Calcium 4.2 L Urine Creatinine 192.4 H Urine Chloride 31.1 L Vancomycin Trough Coronavirus (PCR) 06/18/20 06/18/20 06/18/20 17:16 19:44 20:33 WBC RBC Hgb Hct RDW Lymph % (Auto) Lymph # (Auto) Seg Neuts % (Manual) Lymphocytes % (Manual) Seg Neutrophils # Seg Neutrophils # Man Lymphocytes # (Manual) Monocytes # (Manual) PT INR D-Dimer Heparin Anti-Xa Level ABG pH POC ABG pCO2 POC ABG pO2 ABG Oxyhemoglobin ABG Sodium ABG Potassium ABG Chloride ABG Glucose Carboxyhemoglobin Sodium Potassium Chloride Carbon Dioxide BUN Creatinine Glucose POC Glucose 182 H Lactic Acid 3.00 H* Calcium Magnesium 2.70 H Ferritin AST ALT Lactate Dehydrogenase Total Creatine Kinase C-Reactive Protein Total Protein Albumin Triglycerides Arterial Blood Glucose Arterial Blood Ionized Calcium Urine Creatinine Urine Chloride Vancomycin Trough Coronavirus (PCR) 06/18/20 06/19/20 06/19/20 23:43 04:00 04:00 WBC 31.6 H RBC Hgb Hct RDW Lymph % (Auto) Lymph # (Auto) Seg Neuts % (Manual) 98.0 H Lymphocytes % (Manual) 0.5 L Seg Neutrophils # Seg Neutrophils # Man 31.0 H Lymphocytes # (Manual) 0.2 L Monocytes # (Manual) PT INR D-Dimer Heparin Anti-Xa Level ABG pH POC ABG pCO2 POC ABG pO2 ABG Oxyhemoglobin ABG Sodium ABG Potassium ABG Chloride ABG Glucose Carboxyhemoglobin Sodium Potassium Chloride Carbon Dioxide BUN 56 H Creatinine 1.6 H Glucose 176 H POC Glucose 149 H Lactic Acid Calcium 7.0 L Magnesium Ferritin AST 244 H ALT 159 H Lactate Dehydrogenase Total Creatine Kinase C-Reactive Protein Total Protein 4.9 L D Albumin 2.5 L Triglycerides Arterial Blood Glucose Arterial Blood Ionized Calcium Urine Creatinine Urine Chloride Vancomycin Trough Coronavirus (PCR) 06/19/20 06/19/20 06/19/20 04:00 05:44 11:42 WBC RBC Hgb Hct RDW Lymph % (Auto) Lymph # (Auto) Seg Neuts % (Manual) Lymphocytes % (Manual) Seg Neutrophils # Seg Neutrophils # Man Lymphocytes # (Manual) Monocytes # (Manual) PT INR D-Dimer Heparin Anti-Xa Level ABG pH 7.265 L POC ABG pCO2 51.8 H POC ABG pO2 65.1 L ABG Oxyhemoglobin ABG Sodium ABG Potassium ABG Chloride ABG Glucose 184 H Carboxyhemoglobin Sodium Potassium Chloride Carbon Dioxide BUN Creatinine Glucose POC Glucose 156 H 191 H Lactic Acid Calcium Magnesium Ferritin AST ALT Lactate Dehydrogenase Total Creatine Kinase C-Reactive Protein Total Protein Albumin Triglycerides Arterial Blood Glucose 184 H Arterial Blood Ionized Calcium 4.3 L Urine Creatinine Urine Chloride Vancomycin Trough Coronavirus (PCR) 06/19/20 06/19/20 06/19/20 12:30 17:16 18:36 WBC RBC Hgb Hct RDW Lymph % (Auto) Lymph # (Auto) Seg Neuts % (Manual) Lymphocytes % (Manual) Seg Neutrophils # Seg Neutrophils # Man Lymphocytes # (Manual) Monocytes # (Manual) PT 16.4 H INR 1.32 H D-Dimer Heparin Anti-Xa Level ABG pH 7.088 L POC ABG pCO2 78.1 H POC ABG pO2 208.3 H ABG Oxyhemoglobin 98.3 H ABG Sodium ABG Potassium 5.0 H ABG Chloride ABG Glucose 182 H Carboxyhemoglobin 0.4 L Sodium Potassium Chloride Carbon Dioxide BUN Creatinine Glucose POC Glucose 154 H Lactic Acid Calcium Magnesium Ferritin AST ALT Lactate Dehydrogenase Total Creatine Kinase C-Reactive Protein Total Protein Albumin Triglycerides Arterial Blood Glucose 182 H Arterial Blood Ionized Calcium 4.3 L Urine Creatinine Urine Chloride Vancomycin Trough Coronavirus (PCR) 06/19/20 06/20/20 06/20/20 23:32 03:00 05:19 WBC RBC Hgb Hct RDW Lymph % (Auto) Lymph # (Auto) Seg Neuts % (Manual) Lymphocytes % (Manual) Seg Neutrophils # Seg Neutrophils # Man Lymphocytes # (Manual) Monocytes # (Manual) PT INR D-Dimer Heparin Anti-Xa Level 0.77 H ABG pH POC ABG pCO2 POC ABG pO2 ABG Oxyhemoglobin ABG Sodium ABG Potassium ABG Chloride ABG Glucose Carboxyhemoglobin Sodium Potassium Chloride Carbon Dioxide BUN Creatinine Glucose POC Glucose 201 H 190 H Lactic Acid Calcium Magnesium Ferritin AST ALT Lactate Dehydrogenase Total Creatine Kinase C-Reactive Protein Total Protein Albumin Triglycerides Arterial Blood Glucose Arterial Blood Ionized Calcium Urine Creatinine Urine Chloride Vancomycin Trough Coronavirus (PCR) 06/20/20 06/20/20 06/20/20 08:25 08:25 11:36 WBC RBC Hgb Hct RDW Lymph % (Auto) Lymph # (Auto) Seg Neuts % (Manual) Lymphocytes % (Manual) Seg Neutrophils # Seg Neutrophils # Man Lymphocytes # (Manual) Monocytes # (Manual) PT INR D-Dimer Heparin Anti-Xa Level ABG pH POC ABG pCO2 POC ABG pO2 ABG Oxyhemoglobin ABG Sodium ABG Potassium ABG Chloride ABG Glucose Carboxyhemoglobin Sodium 135 L Potassium 5.4 H Chloride 109.2 H Carbon Dioxide 19 L BUN 68 H Creatinine 2.5 H D Glucose 201 H POC Glucose 184 H Lactic Acid Calcium 5.5 L* D Magnesium Ferritin AST 123 H ALT 86 H Lactate Dehydrogenase Total Creatine Kinase C-Reactive Protein Total Protein 4.6 L Albumin 1.5 L Triglycerides Arterial Blood Glucose Arterial Blood Ionized Calcium Urine Creatinine Urine Chloride Vancomycin Trough 22.7 H Coronavirus (PCR) 06/20/20 06/20/20 06/20/20 11:40 17:28 20:00 WBC RBC Hgb Hct RDW Lymph % (Auto) Lymph # (Auto) Seg Neuts % (Manual) Lymphocytes % (Manual) Seg Neutrophils # Seg Neutrophils # Man Lymphocytes # (Manual) Monocytes # (Manual) PT INR D-Dimer Heparin Anti-Xa Level 0.89 H ABG pH 7.099 L POC ABG pCO2 61.1 H POC ABG pO2 ABG Oxyhemoglobin ABG Sodium ABG Potassium 5.0 H ABG Chloride 111.0 H ABG Glucose 200 H Carboxyhemoglobin 0.4 L Sodium Potassium Chloride Carbon Dioxide BUN Creatinine Glucose POC Glucose 165 H Lactic Acid Calcium Magnesium Ferritin AST ALT Lactate Dehydrogenase Total Creatine Kinase C-Reactive Protein Total Protein Albumin Triglycerides Arterial Blood Glucose 200 H Arterial Blood Ionized Calcium 4.2 L Urine Creatinine Urine Chloride Vancomycin Trough Coronavirus (PCR) 06/20/20 06/21/20 06/21/20 23:29 05:00 05:20 WBC RBC Hgb Hct RDW Lymph % (Auto) Lymph # (Auto) Seg Neuts % (Manual) Lymphocytes % (Manual) Seg Neutrophils # Seg Neutrophils # Man Lymphocytes # (Manual) Monocytes # (Manual) PT INR D-Dimer Heparin Anti-Xa Level ABG pH POC ABG pCO2 POC ABG pO2 ABG Oxyhemoglobin ABG Sodium ABG Potassium ABG Chloride ABG Glucose Carboxyhemoglobin Sodium Potassium Chloride 112.0 H Carbon Dioxide 20 L BUN 92 H Creatinine 3.9 H D Glucose 214 H POC Glucose 145 H 191 H Lactic Acid Calcium 6.5 L D Magnesium Ferritin AST 98 H ALT 84 H Lactate Dehydrogenase Total Creatine Kinase C-Reactive Protein Total Protein 4.6 L Albumin 2.1 L Triglycerides 180 H Arterial Blood Glucose Arterial Blood Ionized Calcium Urine Creatinine Urine Chloride Vancomycin Trough Coronavirus (PCR) 06/21/20 06/21/20 06/21/20 08:56 11:12 12:43 WBC RBC Hgb Hct RDW Lymph % (Auto) Lymph # (Auto) Seg Neuts % (Manual) Lymphocytes % (Manual) Seg Neutrophils # Seg Neutrophils # Man Lymphocytes # (Manual) Monocytes # (Manual) PT INR D-Dimer Heparin Anti-Xa Level 0.28 L ABG pH 7.184 L POC ABG pCO2 48.3 H POC ABG pO2 172.1 H ABG Oxyhemoglobin 98.7 H ABG Sodium ABG Potassium 4.9 H ABG Chloride 112.0 H ABG Glucose 196 H Carboxyhemoglobin 0.2 L Sodium Potassium Chloride Carbon Dioxide BUN Creatinine Glucose POC Glucose 177 H Lactic Acid Calcium Magnesium Ferritin AST ALT Lactate Dehydrogenase Total Creatine Kinase C-Reactive Protein Total Protein Albumin Triglycerides Arterial Blood Glucose 196 H Arterial Blood Ionized Calcium 4.1 L Urine Creatinine Urine Chloride Vancomycin Trough Coronavirus (PCR) 06/21/20 06/21/20 06/22/20 16:31 Unknown 00:12 WBC RBC Hgb Hct RDW Lymph % (Auto) Lymph # (Auto) Seg Neuts % (Manual) Lymphocytes % (Manual) Seg Neutrophils # Seg Neutrophils # Man Lymphocytes # (Manual) Monocytes # (Manual) PT INR D-Dimer Heparin Anti-Xa Level 0.78 H ABG pH POC ABG pCO2 POC ABG pO2 ABG Oxyhemoglobin ABG Sodium ABG Potassium ABG Chloride ABG Glucose Carboxyhemoglobin Sodium Potassium Chloride Carbon Dioxide BUN Creatinine Glucose POC Glucose 150 H 173 H Lactic Acid Calcium Magnesium Ferritin AST ALT Lactate Dehydrogenase Total Creatine Kinase C-Reactive Protein Total Protein Albumin Triglycerides Arterial Blood Glucose Arterial Blood Ionized Calcium Urine Creatinine Urine Chloride Vancomycin Trough Coronavirus (PCR) 06/22/20 06/22/20 06/22/20 04:00 05:04 05:30 WBC 33.9 H RBC Hgb 11.7 L Hct 35.2 L RDW 15.8 H Lymph % (Auto) Lymph # (Auto) Seg Neuts % (Manual) Lymphocytes % (Manual) Seg Neutrophils # Seg Neutrophils # Man Lymphocytes # (Manual) Monocytes # (Manual) PT INR D-Dimer Heparin Anti-Xa Level ABG pH 7.169 L POC ABG pCO2 POC ABG pO2 ABG Oxyhemoglobin ABG Sodium ABG Potassium 5.1 H ABG Chloride 112.0 H ABG Glucose 186 H Carboxyhemoglobin 0.3 L Sodium Potassium Chloride Carbon Dioxide BUN Creatinine Glucose POC Glucose 161 H Lactic Acid Calcium Magnesium Ferritin AST ALT Lactate Dehydrogenase Total Creatine Kinase C-Reactive Protein Total Protein Albumin Triglycerides Arterial Blood Glucose 186 H Arterial Blood Ionized Calcium 4.1 L Urine Creatinine Urine Chloride Vancomycin Trough Coronavirus (PCR) 06/22/20 05:30 WBC RBC Hgb Hct RDW Lymph % (Auto) Lymph # (Auto) Seg Neuts % (Manual) Lymphocytes % (Manual) Seg Neutrophils # Seg Neutrophils # Man Lymphocytes # (Manual) Monocytes # (Manual) PT INR D-Dimer Heparin Anti-Xa Level ABG pH POC ABG pCO2 POC ABG pO2 ABG Oxyhemoglobin ABG Sodium ABG Potassium ABG Chloride ABG Glucose Carboxyhemoglobin Sodium Potassium 5.7 H Chloride 111.3 H Carbon Dioxide 18 L BUN 112 H Creatinine 5.0 H Glucose 173 H POC Glucose Lactic Acid Calcium 6.7 L Magnesium Ferritin AST ALT Lactate Dehydrogenase Total Creatine Kinase C-Reactive Protein Total Protein Albumin Triglycerides Arterial Blood Glucose Arterial Blood Ionized Calcium Urine Creatinine Urine Chloride Vancomycin Trough Coronavirus (PCR) Chest x-ray: image reviewed (ETT in good position) Allied health notes reviewed: nursing
--- NOTE | 2020-06-22 12:34 | Progress Note ---
Assessment and Plan Cultures: SARS CoV2 PCR: Positive as outpatient Blood culture: no growth Sputum culture: no growth A/P: 59-year-old male with obesity, obesity hypoventilation syndrome: #Severe sepsis with septic shock: likely secondary to critical COVID-19 pneumonia. Blood cultures so far negative. ?Bacterial pneumonia component, but sputum culture with no growth. On empiric abx, steroids. Completed Remdesivir. #Critical COVID-19 pneumonia: Procalcitonin also high, treat with empiric antibiotics. #Acute hypoxic respiratory failure: on the vent #Transaminitis: Likely secondary to COVID-19. #GIRISH: creatinine elevated. Recs: -Continue steroids for at least total 10 days -completed Remdesivir -Continue empiric IV Cefepime x 5-7 days given ongoing pressor use -prophylactic anticoagulation based on d-dimer per hospital protocol -trend ferritin, LDH, d-dimer, CRP every 2-3 days for risk stratification and to assess disease progression -poor prognosis Tj Fajardo MD, FACP [facility] ([facility] O: [phone] F: [phone] Subjective Date of service: 06/22/20 Principal diagnosis: ARF/Septic Shock/COVID-19 PNA, AF with RVR Interval history: No fever. Remains on the vent. Critically ill, on pressors. Objective - Exam Narrative Exam: Physical Exam (reviewed in chart to minimize risk of transmission) Constitutional: deferred Head, Ears, Nose: deferred Eyes: deferred Neck: deferred Oral: deferred Cardiovascular: deferred Respiratory: deferred GI: deferred Musculoskeletal: deferred Skin: deferred Hem/Lymphatic: deferred Psych: deferred Neurological: deferred - Constitutional Vitals: Vital Signs Temp Pulse Resp BP Pulse Ox 97.9 F 107 H 31 H 121/61 100 06/22/20 08:00 06/22/20 11:00 06/22/20 11:00 06/22/20 11:00 06/22/20 11:00 Temperature -Last 24 Hours Temperature 97.9 F Temperature 97.9 F Temperature 98.1 F Temperature 98.2 F Temperature 97.9 F - Labs CBC & Chem 7: 06/22/20 05:30 06/22/20 05:30 Labs: Abnormal lab results 06/21/20 06/21/2021 Range/Units 11:12 12:43 16:31 WBC (4.5-11.0) K/mm3 Hgb (11.8-15.2) gm/dl Hct (35.5-45.6) % RDW (13.2-15.2) % ABG pH 7.184 L (7.320-7.450) POC ABG pCO2 48.3 H (32.0-48.0) mmHg POC ABG pO2 172.1 H (83-108) mmHg ABG Oxyhemoglobin 98.7 H (94-98) ABG Potassium 4.9 H (3.40-4.50) mmol/L ABG Chloride 112.0 H (98-107) mmol/L ABG Glucose 196 H (65-95) mg/dL Carboxyhemoglobin 0.2 L (0.5-1.5) Potassium (3.6-5.0) mmol/L Chloride (98-107) mmol/L Carbon Dioxide (22-30) mmol/L BUN (9-20) mg/dL Creatinine (0.8-1.3) mg/dL Glucose (75-100) mg/dL POC Glucose 177 H 150 H (70-105) mg/dL Calcium (8.4-10.2) mg/dL Arterial Blood Glucose 196 H (65-95) mg/dL Arterial Blood Ionized Calcium 4.1 L (4.6-5.3) mg/dL 06/22/20 06/22/20 06/22/20 Range/Units 00:12 04:00 05:04 WBC (4.5-11.0) K/mm3 Hgb (11.8-15.2) gm/dl Hct (35.5-45.6) % RDW (13.2-15.2) % ABG pH 7.169 L (7.320-7.450) POC ABG pCO2 (32.0-48.0) mmHg POC ABG pO2 (83-108) mmHg ABG Oxyhemoglobin (94-98) ABG Potassium 5.1 H (3.40-4.50) mmol/L ABG Chloride 112.0 H (98-107) mmol/L ABG Glucose 186 H (65-95) mg/dL Carboxyhemoglobin 0.3 L (0.5-1.5) Potassium (3.6-5.0) mmol/L Chloride (98-107) mmol/L Carbon Dioxide (22-30) mmol/L BUN (9-20) mg/dL Creatinine (0.8-1.3) mg/dL Glucose (75-100) mg/dL POC Glucose 173 H 161 H (70-105) mg/dL Calcium (8.4-10.2) mg/dL Arterial Blood Glucose 186 H (65-95) mg/dL Arterial Blood Ionized Calcium 4.1 L (4.6-5.3) mg/dL 06/22/20 06/22/20 Range/Units 05:30 05:30 WBC 33.9 H (4.5-11.0) K/mm3 Hgb 11.7 L (11.8-15.2) gm/dl Hct 35.2 L (35.5-45.6) % RDW 15.8 H (13.2-15.2) % ABG pH (7.320-7.450) POC ABG pCO2 (32.0-48.0) mmHg POC ABG pO2 (83-108) mmHg ABG Oxyhemoglobin (94-98) ABG Potassium (3.40-4.50) mmol/L ABG Chloride (98-107) mmol/L ABG Glucose (65-95) mg/dL Carboxyhemoglobin (0.5-1.5) Potassium 5.7 H (3.6-5.0) mmol/L Chloride 111.3 H (98-107) mmol/L Carbon Dioxide 18 L (22-30) mmol/L BUN 112 H (9-20) mg/dL Creatinine 5.0 H (0.8-1.3) mg/dL Glucose 173 H (75-100) mg/dL POC Glucose (70-105) mg/dL Calcium 6.7 L (8.4-10.2) mg/dL Arterial Blood Glucose (65-95) mg/dL Arterial Blood Ionized Calcium (4.6-5.3) mg/dL
[2020-06-22] MEDS ORDERED: SODIUM CHLORIDE 0.9% 100 ML IV PRN (12:53)
[2020-06-22] MEDS: HEPARIN/ 0.45% NACL DRIP 25,000 UNIT/500 ML BAG IV SCH (13:25)
[2020-06-22] MEDS: METOCLOPRAMIDE 10 MG/2 ML INJ IV SCH ×2 (13:25→18:10)
[2020-06-22 14:13] LABS: Total Cells Counted 100
[2020-06-22 14:14] LABS: Anisocytosis 1+; Band Neutrophils # (Manual) 0.7 K/mm3; Burr Cells Few; Platelet Estimate Consistent w Auto
--- NOTE | 2020-06-22 14:49 | Progress Note ---
Assessment and Plan 59-year-old white male who was admitted for pneumonia secondary to Covid with associated respiratory failure and sepsis. Acute metabolic encephalopathy -Due to severe sepsis and severe hypoxia -CT head ordered (patient is too unstable to do the scan), currently intubated, continue supportive care with frequent neuro check Acute hypoxic respiratory failure -Due to severe COVID-19 pneumonia -Intubated following admission overnight as patient was unable to maintain oxygenation with 100% FiO2 with BiPAP -Critical care following, frequent nebulizer breathing treatment, empiric steroid Severe septic shock -Patient currently on 2 pressor support -Wean off as tolerated COVID-19 pneumonia -Follow inflammatory markers, ID consulted --Patient initially tested positive for COVID-19 virus about 2 weeks before this admission -CXR shows patchy parenchymal disease which represent pulmonary edema or atypical pneumonia -Placed on dexamethasone for total 10 days and completed remdesivir total 5 days -Continue empiric antibiotics for now per ID recommendation -Droplet/contact isolation -Continue SPO2 monitoring -Supplemental oxygen as needed -Pulmonary hygiene, Prone intermittently to improve oxygenation -Vitamin C, vitamin D, zinc -Anticoagulation per protocol -Lasix IV as needed to prevent pulmonary edema GIRISH, likely ATN -Follow BMP daily, avoid nephrotoxins -Consulted nephrology, follow recommendations -Renal function continues to decline, started on hemodialysis hypokalemia, repleted Supraventricular tachycardia/paroxysmal atrial fibrillation -likely due to severe sepsis -Patient currently on 2 pressor, will initiate IV amiodarone drip for rate control if needed -Consulted cardiology, echo ordered currently pending -Placed on heparin drip Elevated LFT, due to shock liver from severe sepsis and COVID-19 infection -Continue to trend DVT prophylaxis, per Covid protocol The high probability of a clinically significant, sudden or life threatening deterioration of the [cvs, H[employer] STR[employer]ER, 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 The aggregate critical care time was [42] minutes. This time is in addition to time spent performing reported procedures but includes the following: [x] Data Review and interpretation [x] Patient assessment and monitoring of vital signs [x] Documentation [x] Medication orders and management daily course: 06/18: Patient got intubated overnight. Patient was placed on BiPAP to maintain oxygenation with 100% FiO2 but apparently he found to take off his argueta which made his oxygen saturation go down at 60s/50s and patient was found altered mental status. Code met was called immediately. Patient was transferred to ICU and intubated, patient currently on 2 pressors, intubated with 100% FiO2, renal function noted to be decline, nephrology consulted. Discussed with [place] physician Dr. Thompson and requested call back on Saturday. Poor prognosis, continue to monitor with aggressive supportive care. Also called family/ to update clinical status. 06/19: Repeat COVID test was positive. cont cefepime, remdesivir per ID recommendation. follow inflammatory markers, cbc, bmp. placed on heparin drip for atrial fib 06/20: Remains on mechanical ventilation, on 2 pressors, on heparin drip. discussed with and daughter by phone. Renal function declining. cont supportive care for now. 06/21: Renal function cont to decline, urine outpt sig decreased. started on lasix 80mg BID, plan to follow urine output, if no improvement patient need to start on HD. called and daughter today. updated all clinical details 06/22: Renal function continues to decline with uremia and hyperkalemia. Will need to proceed with hemodialysis. Nephrology discussed with the family and they agrees for the hemodialysis. Patient remains on pressor support and mechanical ventilation. Vas-Cath placed today by vascular started on hemodialysis today. Subjective Date of service: 06/22/20 Principal diagnosis: ARF/Septic Shock/COVID-19 PNA, AF with RVR Interval history: Patient seen and examined Currently on 2 pressors, mechanically ventilated and sedated Noted vitals, lab results reviewed Discussed with RN at the bedside and critical care attending Objective - Exam Narrative Exam: Limited physical exam due to COVID-19 pandemic to minimize transmission of the disease and to preserve PPE. Vital reviewed and stable. GENERAL: well-developed obese white male lying on bed who is mechanically ventilated and sedated. HEENT: Normocephalic. Atraumatic. NECK: Supple. CHEST/LUNGS: On mechanical ventilation HEART/CARDIOVASCULAR: Tachycardic ABDOMEN: Visibly not distended SKIN: There is no rash NEURO: Patient is intubated MUSCULOSKELETAL: No joint effusion EXTRIMITY: no cyanosis or clubbing. PSYCH: Unable to assess. - Constitutional Vitals: Vital Signs - 12hr 06/22/20 06/22/20 06/22/20 03:00 03:15 03:30 Temperature Pulse Rate 101 H 120 H 102 H Pulse Rate [ From Monitor] Respiratory 27 H 30 H 27 H Rate Blood Pressure 112/59 116/57 109/58 O2 Sat by Pulse 97 96 96 Oximetry 06/22/20 06/22/20 06/22/20 03:45 04:00 04:15 Temperature 97.9 F Pulse Rate 87 99 H 97 H Pulse Rate [ 95 H From Monitor] Respiratory 22 26 H 30 H Rate Blood Pressure 99/57 90/63 109/65 O2 Sat by Pulse 96 95 96 Oximetry 06/22/20 06/22/20 06/22/20 04:30 04:46 05:00 Temperature Pulse Rate 94 H 91 H 107 H Pulse Rate [ From Monitor] Respiratory 28 H 30 H 30 H Rate Blood Pressure 119/68 124/57 129/65 O2 Sat by Pulse 95 96 95 Oximetry 06/22/20 06/22/20 06/22/20 05:10 05:16 05:30 Temperature Pulse Rate 104 H 105 H 105 H Pulse Rate [ From Monitor] Respiratory 31 H 29 H Rate Blood Pressure 129/65 126/54 126/54 O2 Sat by Pulse 98 96 98 Oximetry 06/22/20 06/22/20 06/22/20 05:45 06:00 06:15 Temperature Pulse Rate 94 H 92 H 96 H Pulse Rate [ From Monitor] Respiratory 31 H 31 H 28 H Rate Blood Pressure 114/61 127/58 119/58 O2 Sat by Pulse 98 97 98 Oximetry 06/22/20 06/22/20 06/22/20 06:30 06:45 07:00 Temperature Pulse Rate 98 H 98 H 97 H Pulse Rate [ From Monitor] Respiratory 29 H 31 H 30 H Rate Blood Pressure 113/62 110/62 117/56 O2 Sat by Pulse 98 98 98 Oximetry 06/22/20 06/22/20 06/22/20 07:15 07:30 07:46 Temperature Pulse Rate 104 H 91 H 91 H Pulse Rate [ From Monitor] Respiratory 32 H 30 H 30 H Rate Blood Pressure 113/62 120/59 118/62 O2 Sat by Pulse 98 98 98 Oximetry 06/22/20 06/22/20 06/22/20 08:00 08:16 08:30 Temperature 97.9 F Pulse Rate 84 91 H 103 H Pulse Rate [ 86 From Monitor] Respiratory 29 H 13 30 H Rate Blood Pressure 112/61 112/61 95/44 O2 Sat by Pulse 98 98 98 Oximetry 06/22/20 06/22/20 06/22/20 08:45 09:00 09:15 Temperature Pulse Rate 96 H 96 H 98 H Pulse Rate [ From Monitor] Respiratory 30 H 30 H 30 H Rate Blood Pressure 90/43 95/52 108/39 O2 Sat by Pulse 98 98 99 Oximetry 06/22/20 06/22/20 06/22/20 09:30 09:45 10:00 Temperature Pulse Rate 100 H 90 92 H Pulse Rate [ From Monitor] Respiratory 32 H 31 H 30 H Rate Blood Pressure 102/29 104/32 113/50 O2 Sat by Pulse 100 99 99 Oximetry 06/22/20 06/22/20 06/22/20 10:10 10:15 10:30 Temperature Pulse Rate 127 H 93 H 103 H Pulse Rate [ From Monitor] Respiratory 30 H 30 H Rate Blood Pressure 110/63 121/54 120/59 O2 Sat by Pulse 97 100 100 Oximetry 06/22/20 06/22/20 06/22/20 10:45 11:00 11:15 Temperature Pulse Rate 99 H 107 H 99 H Pulse Rate [ From Monitor] Respiratory 30 H 31 H 30 H Rate Blood Pressure 109/57 121/61 110/62 O2 Sat by Pulse 100 100 100 Oximetry 06/22/20 06/22/20 06/22/20 11:30 11:45 12:00 Temperature 98.4 F Pulse Rate 89 111 H 114 H Pulse Rate [ 88 From Monitor] Respiratory 30 H 30 H 30 H Rate Blood Pressure 117/51 120/59 120/59 O2 Sat by Pulse 100 98 99 Oximetry 06/22/20 06/22/20 06/22/20 12:15 12:30 12:46 Temperature Pulse Rate 110 H 113 H 112 H Pulse Rate [ From Monitor] Respiratory 31 H 31 H 27 H Rate Blood Pressure 126/59 124/56 128/57 O2 Sat by Pulse 99 98 99 Oximetry 06/22/20 06/22/20 06/22/20 13:00 13:15 13:30 Temperature Pulse Rate 110 H 106 H 129 H Pulse Rate [ From Monitor] Respiratory 23 30 H 29 H Rate Blood Pressure 114/53 119/58 113/63 O2 Sat by Pulse 98 98 98 Oximetry 06/22/20 06/22/20 13:46 14:30 Temperature Pulse Rate 127 H 136 H Pulse Rate [ From Monitor] Respiratory 30 H Rate Blood Pressure 110/63 106/55 O2 Sat by Pulse 97 98 Oximetry - Labs CBC & Chem 7: 06/23/20 04:00 06/23/20 04:00 Labs: Abnormal lab results 06/21/20 06/21/20 06/22/20 Range/Units 11:12 16:31 00:12 WBC (4.5-11.0) K/mm3 Hgb (11.8-15.2) gm/dl Hct (35.5-45.6) % RDW (13.2-15.2) % Seg Neuts % (Manual) (40.0-70.0) % Lymphocytes % (Manual) (13.4-35.0) % Seg Neutrophils # Man (1.8-7.7) K/mm3 ABG pH 7.184 L (7.320-7.450) POC ABG pCO2 48.3 H (32.0-48.0) mmHg POC ABG pO2 172.1 H (83-108) mmHg ABG Oxyhemoglobin 98.7 H (94-98) ABG Potassium 4.9 H (3.40-4.50) mmol/L ABG Chloride 112.0 H (98-107) mmol/L ABG Glucose 196 H (65-95) mg/dL Carboxyhemoglobin 0.2 L (0.5-1.5) Potassium (3.6-5.0) mmol/L Chloride (98-107) mmol/L Carbon Dioxide (22-30) mmol/L BUN (9-20) mg/dL Creatinine (0.8-1.3) mg/dL Glucose (75-100) mg/dL POC Glucose 150 H 173 H (70-105) mg/dL Calcium (8.4-10.2) mg/dL Arterial Blood Glucose 196 H (65-95) mg/dL Arterial Blood Ionized Calcium 4.1 L (4.6-5.3) mg/dL 06/22/20 06/22/20 06/22/20 Range/Units 04:00 05:04 05:30 WBC 33.9 H (4.5-11.0) K/mm3 Hgb 11.7 L (11.8-15.2) gm/dl Hct 35.2 L (35.5-45.6) % RDW 15.8 H (13.2-15.2) % Seg Neuts % (Manual) 93.0 H (40.0-70.0) % Lymphocytes % (Manual) 5.0 L (13.4-35.0) % Seg Neutrophils # Man 31.5 H (1.8-7.7) K/mm3 ABG pH 7.169 L (7.320-7.450) POC ABG pCO2 (32.0-48.0) mmHg POC ABG pO2 (83-108) mmHg ABG Oxyhemoglobin (94-98) ABG Potassium 5.1 H (3.40-4.50) mmol/L ABG Chloride 112.0 H (98-107) mmol/L ABG Glucose 186 H (65-95) mg/dL Carboxyhemoglobin 0.3 L (0.5-1.5) Potassium (3.6-5.0) mmol/L Chloride (98-107) mmol/L Carbon Dioxide (22-30) mmol/L BUN (9-20) mg/dL Creatinine (0.8-1.3) mg/dL Glucose (75-100) mg/dL POC Glucose 161 H (70-105) mg/dL Calcium (8.4-10.2) mg/dL Arterial Blood Glucose 186 H (65-95) mg/dL Arterial Blood Ionized Calcium 4.1 L (4.6-5.3) mg/dL 06/22/20 Range/Units 05:30 WBC (4.5-11.0) K/mm3 Hgb (11.8-15.2) gm/dl Hct (35.5-45.6) % RDW (13.2-15.2) % Seg Neuts % (Manual) (40.0-70.0) % Lymphocytes % (Manual) (13.4-35.0) % Seg Neutrophils # Man (1.8-7.7) K/mm3 ABG pH (7.320-7.450) POC ABG pCO2 (32.0-48.0) mmHg POC ABG pO2 (83-108) mmHg ABG Oxyhemoglobin (94-98) ABG Potassium (3.40-4.50) mmol/L ABG Chloride (98-107) mmol/L ABG Glucose (65-95) mg/dL Carboxyhemoglobin (0.5-1.5) Potassium 5.7 H (3.6-5.0) mmol/L Chloride 111.3 H (98-107) mmol/L Carbon Dioxide 18 L (22-30) mmol/L BUN 112 H (9-20) mg/dL Creatinine 5.0 H (0.8-1.3) mg/dL Glucose 173 H (75-100) mg/dL POC Glucose (70-105) mg/dL Calcium 6.7 L (8.4-10.2) mg/dL Arterial Blood Glucose (65-95) mg/dL Arterial Blood Ionized Calcium (4.6-5.3) mg/dL HEART Score - HEART Score Troponin: Troponin T < 0.010 ng/mL (0.00-0.029) 06/17/20 12:33
--- NOTE | 2020-06-22 17:06 | Progress Note ---
Assessment and Plan - Patient Problems (1) Acute renal failure Current Visit: Yes Status: Acute Plan to address problem: Acute kidney failure Covid as stated nephropathy -prerenal azotemia versus acute tubular necrosis. Kidney function is worsening. Patient has developed hyperkalemia, refractory acidosis and worsening azotemia. I called patient's and daughter and discussed patient's condition. Prognosis is poor given worsening COVID-19 pneumonia with multisystem organ failure. Discussed options and they want to do dialysis and see if patient improves. We discussed the risks of dialysis especially with the unstable hemodynamic status including hypotension which could be potentially life-threatening. They want to proceed with dialysis at this time. They state that patient would not want to be on prolonged life support though. Will reevaluate in 48 to 72 hours. Consulted vascular for access placement. Hemodialysis thereafter. (2) Severe sepsis with septic shock Current Visit: Yes Status: Acute Plan to address problem: Continue antibiotics per infectious disease tanning consultant appropriately adjusted to the degree of renal function. (3) Hyperkalemia Current Visit: Yes Status: Acute Plan to address problem: Hemodialysis and then reevaluate in the morning (4) Metabolic acidosis Current Visit: Yes Status: Acute Plan to address problem: Worsening acidosis noted. We will dialyze today and reevaluate in the morning (5) Acute respiratory failure with hypoxia Current Visit: Yes Status: Acute Plan to address problem: Continue respiratory management by pulmonary (6) Pneumonia due to COVID-19 virus Current Visit: Yes Status: Acute Plan to address problem: IV Dexamethasone Supplemental oxygen/Respiratory support as needed Proning as tolerated Remdesevir contra-indicated due to Kidney failure Prophylactic anticoagulation Trend inflammatory markers to assess disease progression and prognosis (7) Transaminitis Current Visit: Yes Status: Acute Plan to address problem: Hypoperfusion injury. Follow-up liver function test Subjective Date of service: 06/22/20 Principal diagnosis: ARF/Septic Shock/COVID-19 PNA, AF with RVR Interval history: Patient was not examined today due to the COVID-19 status to limit exposure of the consulting hunter skin diver and also for PPE preservation. I reviewed multidisciplinary notes and discussed with staff and physicians as needed. Objective - Exam Narrative Exam: Patient was not examined at the bedside today due to personal protective equipment preservation during the COVID-19 pandemic - Vital Signs Vital signs: Vital Signs - 12hr 06/22/20 06/22/20 06/22/20 05:10 05:16 05:30 Temperature Pulse Rate 104 H 105 H 105 H Pulse Rate [ From Monitor] Respiratory 31 H 29 H Rate Blood Pressure 129/65 126/54 126/54 O2 Sat by Pulse 98 96 98 Oximetry 06/22/20 06/22/20 06/22/20 05:45 06:00 06:15 Temperature Pulse Rate 94 H 92 H 96 H Pulse Rate [ From Monitor] Respiratory 31 H 31 H 28 H Rate Blood Pressure 114/61 127/58 119/58 O2 Sat by Pulse 98 97 98 Oximetry 06/22/20 06/22/20 06/22/20 06:30 06:45 07:00 Temperature Pulse Rate 98 H 98 H 97 H Pulse Rate [ From Monitor] Respiratory 29 H 31 H 30 H Rate Blood Pressure 113/62 110/62 117/56 O2 Sat by Pulse 98 98 98 Oximetry 06/22/20 06/22/20 06/22/20 07:15 07:30 07:46 Temperature Pulse Rate 104 H 91 H 91 H Pulse Rate [ From Monitor] Respiratory 32 H 30 H 30 H Rate Blood Pressure 113/62 120/59 118/62 O2 Sat by Pulse 98 98 98 Oximetry 06/22/20 06/22/20 06/22/20 08:00 08:16 08:30 Temperature 97.9 F Pulse Rate 84 91 H 103 H Pulse Rate [ 86 From Monitor] Respiratory 29 H 13 30 H Rate Blood Pressure 112/61 112/61 95/44 O2 Sat by Pulse 98 98 98 Oximetry 06/22/20 06/22/20 06/22/20 08:45 09:00 09:15 Temperature Pulse Rate 96 H 96 H 98 H Pulse Rate [ From Monitor] Respiratory 30 H 30 H 30 H Rate Blood Pressure 90/43 95/52 108/39 O2 Sat by Pulse 98 98 99 Oximetry 06/22/20 06/22/20 06/22/20 09:30 09:45 10:00 Temperature Pulse Rate 100 H 90 92 H Pulse Rate [ From Monitor] Respiratory 32 H 31 H 30 H Rate Blood Pressure 102/29 104/32 113/50 O2 Sat by Pulse 100 99 99 Oximetry 06/22/20 06/22/20 06/22/20 10:10 10:15 10:30 Temperature Pulse Rate 127 H 93 H 103 H Pulse Rate [ From Monitor] Respiratory 30 H 30 H Rate Blood Pressure 110/63 121/54 120/59 O2 Sat by Pulse 97 100 100 Oximetry 06/22/20 06/22/20 06/22/20 10:45 11:00 11:15 Temperature Pulse Rate 99 H 107 H 99 H Pulse Rate [ From Monitor] Respiratory 30 H 31 H 30 H Rate Blood Pressure 109/57 121/61 110/62 O2 Sat by Pulse 100 100 100 Oximetry 06/22/20 06/22/20 06/22/20 11:30 11:45 12:00 Temperature 98.4 F Pulse Rate 89 111 H 114 H Pulse Rate [ 88 From Monitor] Respiratory 30 H 30 H 30 H Rate Blood Pressure 117/51 120/59 120/59 O2 Sat by Pulse 100 98 99 Oximetry 06/22/20 06/22/20 06/22/20 12:15 12:30 12:46 Temperature Pulse Rate 110 H 113 H 112 H Pulse Rate [ From Monitor] Respiratory 31 H 31 H 27 H Rate Blood Pressure 126/59 124/56 128/57 O2 Sat by Pulse 99 98 99 Oximetry 06/22/20 06/22/20 06/22/20 13:00 13:15 13:30 Temperature Pulse Rate 110 H 106 H 129 H Pulse Rate [ From Monitor] Respiratory 23 30 H 29 H Rate Blood Pressure 114/53 119/58 113/63 O2 Sat by Pulse 98 98 98 Oximetry 06/22/20 06/22/20 06/22/20 13:46 14:00 14:15 Temperature Pulse Rate 127 H 120 H 118 H Pulse Rate [ From Monitor] Respiratory 30 H 30 H 30 H Rate Blood Pressure 110/63 113/63 116/54 O2 Sat by Pulse 97 98 97 Oximetry 06/22/20 06/22/20 06/22/20 14:30 14:45 15:00 Temperature Pulse Rate 125 H 113 H 124 H Pulse Rate [ From Monitor] Respiratory 27 H 30 H 30 H Rate Blood Pressure 106/55 112/52 120/53 O2 Sat by Pulse 97 98 98 Oximetry 06/22/20 06/22/20 06/22/20 15:15 15:30 15:45 Temperature Pulse Rate 127 H 105 H 102 H Pulse Rate [ From Monitor] Respiratory 30 H 30 H 30 H Rate Blood Pressure 127/52 127/52 105/54 O2 Sat by Pulse 99 94 97 Oximetry 06/22/20 16:00 Temperature 98.1 F Pulse Rate 98 H Pulse Rate [ 128 H From Monitor] Respiratory 30 H Rate Blood Pressure 108/67 O2 Sat by Pulse 96 Oximetry - Lab 06/22/20 05:30 06/22/20 05:30 Most recent lab results ABG pH 7.169 (7.320-7.450) L 06/22/20 04:00 Calcium 6.7 mg/dL (8.4-10.2) L 06/22/20 05:30 Magnesium 2.70 mg/dL (1.7-2.3) H 06/18/20 20:33 Urine Creatinine 192.4 mg/dL (0.1-20.0) H 06/18/20 15:00 Urine Sodium 28 mmol/L 06/18/20 15:00 Medications & Allergies - Medications Allergies/Adverse Reactions: Allergies No Known Allergies Allergy (Unverified 06/17/20 14:24) Home Medications: Home Medications Medication Instructions Recorded Confirmed Last Taken Type Losartan/Hydrochlorothiazide 1 each PO QDAY 06/19/20 06/19/20 Unknown History [Losartan-Hctz 100-25 mg Tab] amLODIPine [Norvasc] 5 mg PO DAILY 06/19/20 06/19/20 Unknown History Active Medications: Generic Name Dose Route Start Last Admin Trade Name Garrett PRN Reason Stop Dose Admin Acetaminophen 650 mg 06/17/20 14:17 06/19/20 06:42 Acetaminophen 325 Mg Tab PO 650 mg Q4H PRN Administration Pain MILD(1-3)/Fever >100.5/ROBERTS Lipase/Protease/Amylase 1 each 06/19/20 12:15 Lipase 10,500/Protease 25,000/Amylase 43,750 (Units) Dr Shad BOYLE PRN PRN For Clogged Feeding Tube Ascorbic Acid 250 mg 06/17/20 22:00 06/22/20 08:59 Ascorbic Acid 250 Mg Tab PO 250 mg BID [facility] Administration Cholecalciferol 1,000 unit 06/18/20 10:00 06/22/20 08:59 Cholecalciferol (Vit D3) 1000 Unit (25 Mcg) Tab PO 1,000 unit DAILY [facility] Administration Dexamethasone 6 mg 06/18/20 22:00 06/22/20 08:59 Dexamethasone 4 Mg/Ml Vial IV 06/28/20 10:01 6 mg Q12HR [facility] Administration Famotidine 20 mg 06/20/20 11:00 06/22/20 08:59 Famotidine 20 Mg/2 Ml Inj IV 20 mg DAILY [facility] Administration Fentanyl 50 mcg 06/18/20 01:02 06/18/20 01:22 Fentanyl 100 Mcg/2 Ml Inj IV 50 mcg Q10MIN PRN Administration ANALGESIA Furosemide 80 mg 06/21/20 16:00 06/22/20 17:03 Furosemide 40 Mg/4 Ml Inj IV 80 mg 0600,1800 [facility] Administration Heparin Sodium (Porcine) 4,500 unit 06/19/20 11:34 06/19/20 12:37 Heparin 10,000 Units/10 Ml Vial 40 unit/kg (4500 unit) 4,500 unit IV Administration Q6H PRN Anti-Xa Assay < 0.1 units/ml Heparin Sodium (Porcine) 5,000 unit 06/22/20 12:53 Heparin 10,000 Unit/1 Ml Vial IV PAM PRN hemodialysis Hydrophilic Ointment 1 applic 06/17/20 22:52 Lip Therapy Vaseline TP Q2HR PRN Dry Lips Norepinephrine 4 mg in 250 mls @ 7.5 mls/hr 06/18/20 00:00 06/22/20 14:23 Levophed Drip 4 Mg/Ns 250 Ml IV 8 mcg/min TITR CON[facility] 30 mls/hr Administration Protocol 2 MCG/MIN Propofol 1,000 mg in 100 mls @ 3.402 mls/hr 06/18/20 01:00 06/22/20 16:40 Diprivan 10 Mg/Ml IV 15 mcg/kg/min TITR [facility] 10.206 mls/hr Administration Protocol 5 MCG/KG/MIN Fentanyl Citrate 2,000 mcg in 100 mls @ 5.67 mls/hr 06/18/20 02:00 06/22/20 13:38 Fentanyl Drip Premix IV 4 mcg/kg/hr TITR [facility] 22.68 mls/hr Administration Protocol 1 MCG/KG/HR Vasopressin 20 unit/ Sodium 101 mls @ 9.09 mls/hr 06/18/20 10:00 06/22/20 09:57 Chloride IV 0.03 units/min TITR [facility] 9.09 mls/hr Administration Protocol 0.03 UNITS/MIN Sodium Chloride 500 mls @ 1 mls/hr 06/18/20 09:38 06/19/20 21:37 Nacl 0.9% 500 Ml IV 0 mls/hr DIRECT PRN Infusion ARTERIAL LINE FLUSH Dextrose/Sodium Chloride 1,000 mls @ 75 mls/hr 06/18/20 12:00 06/21/20 19:16 D5ns IV Infused DIRECT [facility] Infusion Heparin Sodium/Sodium Chloride 25,000 unit in 500 mls @ 30 mls/hr 06/19/20 12:00 06/22/20 13:25 Heparin/ 0.45% Nacl-25,000 Unit/500 Ml IV 1,300 units/hr TITR [facility] 26 mls/hr Administration Protocol 1,500 UNITS/HR Cefepime HCl 2 gm in 100 mls @ 200 mls/hr 06/21/20 10:00 06/22/20 08:59 Cefepime/Ns 2 Gm/100 Ml IV 06/27/20 10:29 200 mls/hr Q24HR [facility] Administration Protocol Sodium Chloride 100 mls @ 999 mls/hr 06/22/20 12:53 Nacl 0.9% IV PAM PRN Hypotension Insulin Human Regular 0 units 06/18/20 12:00 06/22/20 13:17 Insulin Regular, Human 100 Units/1 Ml SUB-Q Not Given Q6HR COUNT INCLUDES THE [facility] Protocol Lorazepam 1 mg 06/17/20 17:05 06/17/20 17:10 Lorazepam 2 Mg/Ml Vial IV 1 mg BID PRN Administration Anxiety Metoclopramide HCl 5 mg 06/22/20 13:00 06/22/20 13:25 Metoclopramide 10 Mg/2 Ml Inj IV 5 mg Q6H COUNT INCLUDES THE [facility] Administration Multi-Ingred Cream/Lotion/Oil/Oint 1 applic 06/17/20 22:52 Mineral Oil/Petrolatum, White Ophth Oint 3.5 Gm OU Q4HR PRN Dry Eye(s) Ondansetron HCl 4 mg 06/17/20 14:17 Ondansetron 4 Mg/2 Ml Inj IV Q8H PRN Nausea And Vomiting Simple Syrup 15 ml 06/19/20 12:15 Simple Syrup 15 Ml FEEDTUBE PRN PRN Hypoglycemia Simple Syrup 30 ml 06/19/20 12:15 Simple Syrup 15 Ml FEEDTUBE PRN PRN Hypoglycemia Sodium Bicarbonate 325 mg 06/19/20 12:15 Sodium Bicarbonate 325 Mg Tab FEEDTUBE PRN PRN For Clogged Feeding Tube Sodium Chloride 10 ml 06/17/20 22:00 06/22/20 08:59 Sodium Chloride 0.9% 10 Ml Flush Syringe IV 10 ml BID CONNOR Administration Sodium Chloride 10 ml 06/17/20 14:17 Sodium Chloride 0.9% 10 Ml Flush Syringe IV PRN PRN LINE FLUSH Zinc Sulfate 220 mg 06/17/20 22:00 06/22/20 08:59 Zinc Sulfate 220 Mg Cap PO 220 mg BID CONNOR Administration
--- NOTE | 2020-06-22 17:24 | Consultation ---
History of Present Illness - Reason for Consult Consult date: 06/22/20 Vas-Cath Insertion Requesting physician: JACINTO LATHAM - History of Present Illness The patient is a 60-year-old male who presented to the hospital after being diagnosed with COVID-19 infection the weekend prior to his presentation. He presented to the emergency department with complaints of malaise and shortness of breath. Upon presentation he was found to have an oxygen saturation in the 60s and was intubated shortly after his presentation. Since his admission he has developed multisystem organ failure requiring increasing oxygen and prone positioning as well as worsening renal failure and SVTs. We were consulted for placement of a Vas-Cath for urgent dialysis. Past History Past Medical History: hypertension, other (Morbid obesity) Past Surgical History: No surgical history, Other (Reviewed) Social history: Family history: diabetes, hypertension Medications and Allergies Allergies Allergy/AdvReac Type Severity Reaction Status Date / Time No Known Allergies Allergy Unverified 06/17/20 14:24 Home Medications Medication Instructions Recorded Confirmed Last Taken Type Losartan/Hydrochlorothiazide 1 each PO QDAY 06/19/20 06/19/20 Unknown History [Losartan-Hctz 100-25 mg Tab] amLODIPine [Norvasc] 5 mg PO DAILY 06/19/20 06/19/20 Unknown History Active Meds: Active Medications Acetaminophen (Acetaminophen 325 Mg Tab) 650 mg PO Q4H PRN PRN Reason: Pain MILD(1-3)/Fever >100.5/ROBERTS Last Admin: 06/19/20 06:42 Dose: 650 mg Documented by: Lipase/Protease/Amylase (Lipase 10,500/Protease 25,000/Amylase 43,750 (Units) Dr Kulkarni) 1 each FEEDTUBE PRN PRN PRN Reason: For Clogged Feeding Tube Ascorbic Acid (Ascorbic Acid 250 Mg Tab) 250 mg PO BID [facility] Last Admin: 06/22/20 08:59 Dose: 250 mg Documented by: Cholecalciferol (Cholecalciferol (Vit D3) 1000 Unit (25 Mcg) Tab) 1,000 unit PO DAILY [facility] Last Admin: 06/22/20 08:59 Dose: 1,000 unit Documented by: Dexamethasone (Dexamethasone 4 Mg/Ml Vial) 6 mg IV Q12HR [facility] Stop: 06/28/20 10:01 Last Admin: 06/22/20 08:59 Dose: 6 mg Documented by: Famotidine (Famotidine 20 Mg/2 Ml Inj) 20 mg IV DAILY [facility] Last Admin: 06/22/20 08:59 Dose: 20 mg Documented by: Fentanyl (Fentanyl 100 Mcg/2 Ml Inj) 50 mcg IV Q10MIN PRN PRN Reason: ANALGESIA Last Admin: 06/18/20 01:22 Dose: 50 mcg Documented by: Furosemide (Furosemide 40 Mg/4 Ml Inj) 80 mg IV 0600,1800 CON[facility] Last Admin: 06/22/20 17:03 Dose: 80 mg Documented by: Heparin Sodium (Porcine) (Heparin 10,000 Units/10 Ml Vial) 4,500 unit 40 unit/kg (4500 unit) IV Q6H PRN PRN Reason: Anti-Xa Assay < 0.1 units/ml Last Admin: 06/19/20 12:37 Dose: 4,500 unit Documented by: Heparin Sodium (Porcine) (Heparin 10,000 Unit/1 Ml Vial) 5,000 unit IV PAM PRN PRN Reason: hemodialysis Hydrophilic Ointment (Lip Therapy Vaseline) 1 applic TP Q2HR PRN PRN Reason: Dry Lips Norepinephrine (Levophed Drip 4 Mg/Ns 250 Ml) 4 mg in 250 mls @ 7.5 mls/hr IV TITR CONNOR; Protocol Last Admin: 06/22/20 14:23 Dose: 8 mcg/min, 30 mls/hr Documented by: Propofol (Diprivan 10 Mg/Ml) 1,000 mg in 100 mls @ 3.402 mls/hr IV TITR CONNOR; Protocol Last Admin: 06/22/20 16:40 Dose: 15 mcg/kg/min, 10.206 mls/hr Documented by: Fentanyl Citrate (Fentanyl Drip Premix) 2,000 mcg in 100 mls @ 5.67 mls/hr IV TITR [facility]; Protocol Last Admin: 06/22/20 17:13 Dose: 4 mcg/kg/hr, 22.68 mls/hr Documented by: Vasopressin 20 unit/ Sodium (Chloride) 101 mls @ 9.09 mls/hr IV TITR [facility]; Protocol Last Admin: 06/22/20 09:57 Dose: 0.03 units/min, 9.09 mls/hr Documented by: Sodium Chloride (Nacl 0.9% 500 Ml) 500 mls @ 1 mls/hr IV DIRECT PRN PRN Reason: ARTERIAL LINE FLUSH Last Infusion: 06/19/20 21:37 Dose: 0 mls/hr Documented by: Dextrose/Sodium Chloride (D5ns) 1,000 mls @ 75 mls/hr IV DIRECT [facility] Last Infusion: 06/21/20 19:16 Dose: Infused Documented by: Heparin Sodium/Sodium Chloride (Heparin/ 0.45% Nacl-25,000 Unit/500 Ml) 25,000 unit in 500 mls @ 30 mls/hr IV TITR [facility]; Protocol Last Admin: 06/22/20 13:25 Dose: 1,300 units/hr, 26 mls/hr Documented by: Cefepime HCl (Cefepime/Ns 2 Gm/100 Ml) 2 gm in 100 mls @ 200 mls/hr IV Q24HR [facility]; Protocol Stop: 06/27/20 10:29 Last Admin: 06/22/20 08:59 Dose: 200 mls/hr Documented by: Sodium Chloride (Nacl 0.9%) 100 mls @ 999 mls/hr IV PAM PRN PRN Reason: Hypotension Insulin Human Regular (Insulin Regular, Human 100 Units/1 Ml) 0 units SUB-Q Q6HR [facility]; Protocol Last Admin: 06/22/20 13:17 Dose: Not Given Documented by: Lorazepam (Lorazepam 2 Mg/Ml Vial) 1 mg IV BID PRN PRN Reason: Anxiety Last Admin: 06/17/20 17:10 Dose: 1 mg Documented by: Metoclopramide HCl (Metoclopramide 10 Mg/2 Ml Inj) 5 mg IV Q6H [facility] Last Admin: 06/22/20 13:25 Dose: 5 mg Documented by: Multi-Ingred Cream/Lotion/Oil/Oint (Mineral Oil/Petrolatum, White Ophth Oint 3.5 Gm) 1 applic OU Q4HR PRN PRN Reason: Dry Eye(s) Ondansetron HCl (Ondansetron 4 Mg/2 Ml Inj) 4 mg IV Q8H PRN PRN Reason: Nausea And Vomiting Simple Syrup (Simple Syrup 15 Ml) 15 ml FEEDTUBE PRN PRN PRN Reason: Hypoglycemia Simple Syrup (Simple Syrup 15 Ml) 30 ml FEEDTUBE PRN PRN PRN Reason: Hypoglycemia Sodium Bicarbonate (Sodium Bicarbonate 325 Mg Tab) 325 mg FEEDTUBE PRN PRN PRN Reason: For Clogged Feeding Tube Sodium Chloride (Sodium Chloride 0.9% 10 Ml Flush Syringe) 10 ml IV BID [facility] Last Admin: 06/22/20 08:59 Dose: 10 ml Documented by: Sodium Chloride (Sodium Chloride 0.9% 10 Ml Flush Syringe) 10 ml IV PRN PRN PRN Reason: LINE FLUSH Zinc Sulfate (Zinc Sulfate 220 Mg Cap) 220 mg PO BID [facility] Last Admin: 06/22/20 08:59 Dose: 220 mg Documented by: Review of Systems ROS unobtainable: due to endotracheal tube Exam - Constitutional Vitals: Temp Pulse Resp BP Pulse Ox 98.1 F 128 H 30 H 108/67 99 06/22/20 16:00 06/22/20 16:00 06/22/20 16:00 06/22/20 16:00 06/22/20 16:00 General appearance: Present: other (Intubated and sedated) - Respiratory Respiratory effort: other (Ventilator dependent) - Cardiovascular Heart rate: 116 Rhythm: other (Irregular and tachycardic) - Extremities Extremity abnormal: edema (Diffuse edema in all 4 extremities) - Abdominal General gastrointestinal: Present: deferred Male genitourinary: Present: deferred - Rectal Rectal Exam: deferred Results - Labs CBC & Chem 7: 06/22/20 05:30 06/22/20 05:30 Labs: Abnormal lab results 06/21/20 06/22/20 06/22/20 Range/Units 16:31 00:12 04:00 WBC (4.5-11.0) K/mm3 Hgb (11.8-15.2) gm/dl Hct (35.5-45.6) % RDW (13.2-15.2) % Seg Neuts % (Manual) (40.0-70.0) % Lymphocytes % (Manual) (13.4-35.0) % Seg Neutrophils # Man (1.8-7.7) K/mm3 ABG pH 7.169 L (7.320-7.450) ABG Potassium 5.1 H (3.40-4.50) mmol/L ABG Chloride 112.0 H (98-107) mmol/L ABG Glucose 186 H (65-95) mg/dL Carboxyhemoglobin 0.3 L (0.5-1.5) Potassium (3.6-5.0) mmol/L Chloride (98-107) mmol/L Carbon Dioxide (22-30) mmol/L BUN (9-20) mg/dL Creatinine (0.8-1.3) mg/dL Glucose (75-100) mg/dL POC Glucose 150 H 173 H (70-105) mg/dL Calcium (8.4-10.2) mg/dL C-Reactive Protein (0.00-1.30) mg/dL Arterial Blood Glucose 186 H (65-95) mg/dL Arterial Blood Ionized Calcium 4.1 L (4.6-5.3) mg/dL 06/22/20 06/22/20 06/22/20 Range/Units 05:04 05:30 05:30 WBC 33.9 H (4.5-11.0) K/mm3 Hgb 11.7 L (11.8-15.2) gm/dl Hct 35.2 L (35.5-45.6) % RDW 15.8 H (13.2-15.2) % Seg Neuts % (Manual) 93.0 H (40.0-70.0) % Lymphocytes % (Manual) 5.0 L (13.4-35.0) % Seg Neutrophils # Man 31.5 H (1.8-7.7) K/mm3 ABG pH (7.320-7.450) ABG Potassium (3.40-4.50) mmol/L ABG Chloride (98-107) mmol/L ABG Glucose (65-95) mg/dL Carboxyhemoglobin (0.5-1.5) Potassium 5.7 H (3.6-5.0) mmol/L Chloride 111.3 H (98-107) mmol/L Carbon Dioxide 18 L (22-30) mmol/L BUN 112 H (9-20) mg/dL Creatinine 5.0 H (0.8-1.3) mg/dL Glucose 173 H (75-100) mg/dL POC Glucose 161 H (70-105) mg/dL Calcium 6.7 L (8.4-10.2) mg/dL C-Reactive Protein (0.00-1.30) mg/dL Arterial Blood Glucose (65-95) mg/dL Arterial Blood Ionized Calcium (4.6-5.3) mg/dL 06/22/20 Range/Units 14:37 WBC (4.5-11.0) K/mm3 Hgb (11.8-15.2) gm/dl Hct (35.5-45.6) % RDW (13.2-15.2) % Seg Neuts % (Manual) (40.0-70.0) % Lymphocytes % (Manual) (13.4-35.0) % Seg Neutrophils # Man (1.8-7.7) K/mm3 ABG pH (7.320-7.450) ABG Potassium (3.40-4.50) mmol/L ABG Chloride (98-107) mmol/L ABG Glucose (65-95) mg/dL Carboxyhemoglobin (0.5-1.5) Potassium (3.6-5.0) mmol/L Chloride (98-107) mmol/L Carbon Dioxide (22-30) mmol/L BUN (9-20) mg/dL Creatinine (0.8-1.3) mg/dL Glucose (75-100) mg/dL POC Glucose (70-105) mg/dL Calcium (8.4-10.2) mg/dL C-Reactive Protein 5.30 H (0.00-1.30) mg/dL Arterial Blood Glucose (65-95) mg/dL Arterial Blood Ionized Calcium (4.6-5.3) mg/dL Assessment and Plan The patient is a 60-year-old male with a history of COVID-19 infection and multisystem organ failure. He is in need of a Vas-Cath for urgent dialysis. His was given the risk, benefits, and alternative procedures and consented to the procedure.
--- NOTE | 2020-06-22 17:31 | Operative Report ---
Operative Report Operative Report: Date of Procedure: 06/22/2020 Pre-operative Diagnosis: Acute Renal Insufficiency Secondary to COVID-19 Infecti on Post-operative Diagnosis: Same Procedure(s): 1. Ultrasound-Guided Access Left Common Femoral Vein 2. Placement of 30 cm Trialysis Vascath Surgeon: Margarito Hunter M.D. Lineman: None Anesthesia: 2% Lidocaine EBL: Minimal Counts: Correct Complications: None Condition: Stable Findings: All ports easily aspirated and flushed at the completion of the case. Specimen: None Indication: The patient is a 60-year-old male with a history of COVID-19 infection who developed multisystem organ failure including acute renal failure. He is in need of a Vas-Cath for urgent dialysis. His was given the risk, benefits, and alternative procedures and consented to the procedure. Description of Procedure: The procedure was performed at the patient's bedside in the intensive care unit. Ultrasound was used to identify the left common femoral vein and confirm patency. Once patency was confirmed the overlying skin and soft tissue was anesthetized with lidocaine. An 11 blade was used to make a small stab incision and then an 18-gauge access needle was used ultrasound guidance in the left common femoral vein. A 0.035 J-wire was advanced to the vein and after removing the needle the tract was serially dilated. A 30 cm Trialysis Vas-Cath was then inserted by Seldinger technique. All ports easily aspirated and flushed and then were primed with the appropriate amount heparin. The catheter was then secured in position with a 3-0 nylon suture and then dressed with a sterile dressing. The patient tolerated procedure well and remained in the intensive care unit in critical but stable condition.
[2020-06-22 17:56] LABS: Hepatitis B Surface Antigen Non-Reactive (Negative); Hepatitis C Virus Antibody Non-Reactive (NonReactive)
[2020-06-22] MEDS: EPOETIN ALFA-EPBX 10,000 UNIT/1 ML VIAL IV PRN (22:21)
[2020-06-23] MEDS: METOCLOPRAMIDE 10 MG/2 ML INJ IV SCH ×4 (00:12→18:03)
[2020-06-23] MEDS: INSULIN REGULAR, HUMAN 100 UNITS/1 ML SUB-Q SCH ×4 (00:21→17:58)
[2020-06-23] MEDS: fentaNYL DRIP Premix 2,000 MCG/100 ML BAG IV SCH ×6 (01:18→20:18)
--- NOTE | 2020-06-23 03:08 | XRay Report ---
CHEST 1 VIEW 06/23/2020 1:03 AM INDICATION / CLINICAL INFORMATION: follow up respiratory failure. COMPARISON: 06/22/20 FINDINGS: SUPPORT DEVICES: Stable, satisfactory device positioning. HEART / MEDIASTINUM: Stable. LUNGS / PLEURA: Bilateral pulmonary opacities, left greater than right, are unchanged. No pneumothora x. ADDITIONAL FINDINGS: No significant additional findings. IMPRESSION: 1. No significant change. Signer Name: Katie Pringle MD Signed: 06/23/2020 3:03 AM Workstation Name: [id number]
[2020-06-23 04:37] LABS: Hematocrit 33.8 % (35.5-45.6); Hemoglobin 11.3 gm/dl (11.8-15.2); Mean Corpuscular HGB Conc 33 % (32-34); Mean Corpuscular Volume 89 fl (84-94); Platelet Count 179 K/mm3 (140-440); Red Blood Count 3.81 M/mm3 (3.65-5.03); Red Cell Distribution Width 15.1 % (13.2-15.2)
[2020-06-23 04:58] LABS: Calcium 8.5 mg/dL (8.4-10.2)
[2020-06-23] MEDS: FUROSEMIDE 40 MG/4 ML INJ IV SCH ×2 (06:10→17:59)
[2020-06-23 06:18] LABS: Anisocytosis 1+; Band Neutrophils # (Manual) 0.3 K/mm3; Ovalocytes Rare; Platelet Estimate Consistent w Auto; Spherocytes Rare; Target Cells Few; Total Cells Counted 100
[2020-06-23] MEDS: VASOPRESSIN 20 UNIT in SODIUM CHLORIDE 0.9% 100 ML IV SCH ×2 (06:46→16:08)
[2020-06-23] MEDS: CHOLECALCIFEROL (VIT D3) 1000 UNIT (25 mcg) TAB PO SCH (09:15)
[2020-06-23] MEDS: FAMOTIDINE 20 MG/2 ML INJ IV SCH (09:15)
[2020-06-23] MEDS: ZINC SULFATE 220 MG CAP PO SCH ×2 (09:15→22:00)
[2020-06-23] MEDS: dexAMETHasone 4 MG/ML VIAL IV SCH ×2 (09:15→22:00)
[2020-06-23] MEDS: CEFEPIME/NS 2 GM/100 ML 2 GM/100 ML BAG IV SCH (09:16)
[2020-06-23] MEDS: ASCORBIC ACID 250 MG TAB PO SCH ×2 (09:18→22:00)
--- NOTE | 2020-06-23 11:34 | Vascular Lab Report ---
DUPLEX DOPPLER LOWER EXTREMITY VEINS, BILATERAL INDICATION: swelling. TECHNIQUE: Duplex doppler imaging was performed through the veins of both lower extremities using ve nous compression and other maneuvers. COMPARISON: No relevant prior imaging study available. FINDINGS: Right Common femoral vein: Negative. Right Superficial femoral vein: Negative. Right Popliteal vein: Negative. Right Calf veins: Negative. Left Common femoral vein: Negative. Left Superficial femoral vein: Negative. Left Popliteal vein: Negative. Left Calf veins: Negative. Additional findings: None. IMPRESSION: No sonographic evidence for DVT in either lower extremity. Signer Name: Mahendra Keane Jr, MD Signed: 06/23/2020 11:29 AM Workstation Name: [id number]
[2020-06-23] MEDS: NORepinephrine/NS 4 MG-250 ML 4 MG/250 ML BAG IV SCH (12:24)
--- NOTE | 2020-06-23 12:44 | Progress Note ---
Assessment and Plan Cultures: SARS CoV2 PCR: Positive as outpatient Blood culture: no growth Sputum culture: no growth A/P: 59-year-old male with obesity, obesity hypoventilation syndrome: #Severe sepsis with septic shock: likely secondary to critical COVID-19 pneumonia. Blood cultures so far negative. ?Bacterial pneumonia component, but sputum culture with no growth. On empiric abx, steroids. Completed Remdesivir. #Critical COVID-19 pneumonia: Procalcitonin also high, treat with empiric antibiotics. #Acute hypoxic respiratory failure: on the vent #Transaminitis: Likely secondary to COVID-19. #GIRISH: creatinine elevated. Recs: -Continue steroids for at least total 10 days -completed Remdesivir -Continue empiric IV Cefepime x 5-7 days given ongoing pressor use -prophylactic anticoagulation based on d-dimer per hospital protocol -trend ferritin, LDH, d-dimer, CRP every 2-3 days for risk stratification and to assess disease progression -poor prognosis Tj Fajardo MD, FACP [facility] ([facility] O: [phone] F: [phone] Subjective Date of service: 06/23/20 Principal diagnosis: ARF/Septic Shock/COVID-19 PNA, AF with RVR Interval history: No fever. Remains on the vent. Critically ill, on pressors. Objective - Exam Narrative Exam: Physical Exam (reviewed in chart to minimize risk of transmission) Constitutional: deferred Head, Ears, Nose: deferred Eyes: deferred Neck: deferred Oral: deferred Cardiovascular: deferred Respiratory: deferred GI: deferred Musculoskeletal: deferred Skin: deferred Hem/Lymphatic: deferred Psych: deferred Neurological: deferred - Constitutional Vitals: Vital Signs Temp Pulse Resp BP Pulse Ox 98.6 F 128 H 30 H 90/46 94 06/23/20 12:00 06/23/20 12:04 06/23/20 09:15 06/23/20 12:04 06/23/20 11:20 Temperature -Last 24 Hours Temperature 98.6 F Temperature 99.1 F Temperature 99.1 F Temperature 98.1 F Temperature 97.2 F Temperature 98.0 F Temperature 98.0 F Temperature 98.0 F Temperature 98.1 F - Labs CBC & Chem 7: 06/23/20 04:00 06/23/20 04:00 Labs: Abnormal lab results 06/22/20 06/22/20 06/22/20 Range/Units 05:30 11:39 13:27 WBC (4.5-11.0) K/mm3 Hgb (11.8-15.2) gm/dl Hct (35.5-45.6) % Seg Neuts % (Manual) 93.0 H (40.0-70.0) % Lymphocytes % (Manual) 5.0 L (13.4-35.0) % Nucleated RBC % (0.0-0.9) % Seg Neutrophils # Man 31.5 H (1.8-7.7) K/mm3 Lymphocytes # (Manual) (1.2-5.4) K/mm3 Monocytes # (Manual) (0.0-0.8) K/mm3 Heparin Anti-Xa Level (0.3-0.7) U.I./ml ABG pH (7.320-7.450) POC ABG pO2 (83-108) mmHg ABG Sodium (136.0-145.0) mmol/L ABG Potassium (3.40-4.50) mmol/L ABG Chloride (98-107) mmol/L ABG Glucose (65-95) mg/dL Chloride (98-107) mmol/L Carbon Dioxide (22-30) mmol/L BUN (9-20) mg/dL Creatinine (0.8-1.3) mg/dL Glucose (75-100) mg/dL POC Glucose 172 H 176 H (70-105) mg/dL C-Reactive Protein (0.00-1.30) mg/dL Arterial Blood Glucose (65-95) mg/dL 06/22/20 06/22/20 06/22/20 Range/Units 14:37 17:00 17:40 WBC (4.5-11.0) K/mm3 Hgb (11.8-15.2) gm/dl Hct (35.5-45.6) % Seg Neuts % (Manual) (40.0-70.0) % Lymphocytes % (Manual) (13.4-35.0) % Nucleated RBC % (0.0-0.9) % Seg Neutrophils # Man (1.8-7.7) K/mm3 Lymphocytes # (Manual) (1.2-5.4) K/mm3 Monocytes # (Manual) (0.0-0.8) K/mm3 Heparin Anti-Xa Level 1.32 H (0.3-0.7) U.I./ml ABG pH (7.320-7.450) POC ABG pO2 (83-108) mmHg ABG Sodium (136.0-145.0) mmol/L ABG Potassium (3.40-4.50) mmol/L ABG Chloride (98-107) mmol/L ABG Glucose (65-95) mg/dL Chloride (98-107) mmol/L Carbon Dioxide (22-30) mmol/L BUN (9-20) mg/dL Creatinine (0.8-1.3) mg/dL Glucose (75-100) mg/dL POC Glucose 171 H (70-105) mg/dL C-Reactive Protein 5.30 H (0.00-1.30) mg/dL Arterial Blood Glucose (65-95) mg/dL 06/22/20 06/23/20 06/23/20 Range/Units 23:36 02:13 02:41 WBC (4.5-11.0) K/mm3 Hgb (11.8-15.2) gm/dl Hct (35.5-45.6) % Seg Neuts % (Manual) (40.0-70.0) % Lymphocytes % (Manual) (13.4-35.0) % Nucleated RBC % (0.0-0.9) % Seg Neutrophils # Man (1.8-7.7) K/mm3 Lymphocytes # (Manual) (1.2-5.4) K/mm3 Monocytes # (Manual) (0.0-0.8) K/mm3 Heparin Anti-Xa Level 0.21 L (0.3-0.7) U.I./ml ABG pH 7.318 L (7.320-7.450) POC ABG pO2 157.5 H (83-108) mmHg ABG Sodium 135.6 L (136.0-145.0) mmol/L ABG Potassium 4.6 H (3.40-4.50) mmol/L ABG Chloride 110.0 H (98-107) mmol/L ABG Glucose 169 H (65-95) mg/dL Chloride (98-107) mmol/L Carbon Dioxide (22-30) mmol/L BUN (9-20) mg/dL Creatinine (0.8-1.3) mg/dL Glucose (75-100) mg/dL POC Glucose 155 H (70-105) mg/dL C-Reactive Protein (0.00-1.30) mg/dL Arterial Blood Glucose 169 H (65-95) mg/dL 06/23/20 06/23/20 06/23/20 Range/Units 04:00 04:00 05:24 WBC 27.4 H (4.5-11.0) K/mm3 Hgb 11.3 L (11.8-15.2) gm/dl Hct 33.8 L (35.5-45.6) % Seg Neuts % (Manual) 93.0 H (40.0-70.0) % Lymphocytes % (Manual) 1.0 L (13.4-35.0) % Nucleated RBC % 1.0 H (0.0-0.9) % Seg Neutrophils # Man 25.5 H (1.8-7.7) K/mm3 Lymphocytes # (Manual) 0.3 L (1.2-5.4) K/mm3 Monocytes # (Manual) 1.1 H (0.0-0.8) K/mm3 Heparin Anti-Xa Level (0.3-0.7) U.I./ml ABG pH (7.320-7.450) POC ABG pO2 (83-108) mmHg ABG Sodium (136.0-145.0) mmol/L ABG Potassium (3.40-4.50) mmol/L ABG Chloride (98-107) mmol/L ABG Glucose (65-95) mg/dL Chloride 107.6 H (98-107) mmol/L Carbon Dioxide 20 L (22-30) mmol/L BUN 100 H (9-20) mg/dL Creatinine 4.7 H (0.8-1.3) mg/dL Glucose 168 H (75-100) mg/dL POC Glucose 151 H (70-105) mg/dL C-Reactive Protein (0.00-1.30) mg/dL Arterial Blood Glucose (65-95) mg/dL
--- NOTE | 2020-06-23 12:55 | Progress Note ---
Assessment and Plan Acute hypoxemic respiratory failure due to COVID-19 Severe COVID infection Severe Sepsis with shock Bilateral pneumonia Acute kidney injury (GIRISH) with acute tubular necrosis (ATN) Elevated liver enzymes Obesity - repeat Procalcitonin elevated - continue antibiotics per ID, on going fevers (Cefepime) - resume tube feeds @ 10 cc/hr - continue Reglan - discontinue femoral CVL - continue HD/UF per nephrology team for toxin and volume clearance - begin bowel regimen - continue care as below otherwise; - rate control per cardiology team for afib RVR - Continue to wean supplemental oxygen for O2 sats >92% - Monitor blood pressure closely while optimizing sedation,wean vasopressor support for MAP > 65 mmHg - Critical care prone positioning - Agitation management, keep RASS -1 to -12 now off proning - VAP bundle addressed, aspiration precautions HOB >40 - continue lung protective strategies, permissive hypercapnic acceptable. - continue bronchodilators with pulmonary hygiene per RT - wean per pulmonary driven protocols otherwise - accuchecks with glycemic control per SSI (While critically ill target blood glucose of 140-180 mg/dL; avoid hypoglycemia) - sedation prn for target RASS -1 to -2 - continue enteral nutritional support at goal rate as tolerated - Monitor liver function test ,avoid hepatotoxic agents - azotemia per nephrology rec's - Avoid nephrotoxins, renally dose all medications, conservative fluid management - continue to avoid benzodiazepines, reduce the possibility of delirium, - prn analgesia per CPOT score - Maintenance of sleep-wake cycle, avoid delirium - Stress ulcer prophylaxis, Famotidine - PT/OT/ROM exercises - Mobility protocols for pressure ulcer prevention - CXR, ABG in am - CBC, CMP in am - Supportive transfusions to keep HgB >7g/dL - Monitor hemodynamics closely - continue other care per attending / other consultants COVID SPECIFIC INTERVENTIONS - continue steroids: Dexamethasone - continue with Remdesivir - monitor inflammatory markers - ferritin, D-dimer, CRP, LDH every 3 days per facility protocol - continue anticoagulation per System Protocol based on d-dimer - continue contact and airborne isolation CONDITION: CRITICAL PROGNOSIS: GUARDED CODE STATUS: FULL CODE The high probability of a clinically significant, sudden or life-threatening deterioration of the [respiratory, cardiovascular, hematologic & neurologic] system(s) required my full and direct attention, intervention and personal management. The aggregate critical care time was [33] minutes without overlap. Time includes spent on; [x] Data Review and interpretation [x] Patient assessment and monitoring of vital signs [x] Documentation [x] Medication orders and management He was evaluated in the context of the global COVID-19 pandemic, which necessita antelmo consideration that the patient might be at risk for infection with the virus that causes COVID-19. Institutional protocols and algorithms that pertain to the evaluation of patients at risk for COVID-19 are in a state of rapid change based on information released by regulatory bodies including the CDC and federal and state organizations. These policies and algorithms were followed during the patient's care in the ICU Please note that these policies, procedures and recommendations changed on a rapid basis. Subjective Date of service: 06/23/20 Principal diagnosis: ARF/Septic Shock/COVID-19 PNA, AF with RVR Interval history: Patient is seen today for: Ac hypoxemic respiratory failure; COVID-19; Severe Sepsis with shock; Zackery. pneumonia; GIRISH; Elevated liver enzymes; Obesity Seen and examined at bedside; 24hour events reviewed; nursing and respiratory care staff consulted; no adverse overnight events reported to me; resting in bed; remains on MVS; FiO2 down to 60%; s/p HD/UF yesterday and today; AMS is persistent; remains on Levophed and vasopressin Objective Vital Signs - 12hr 06/23/20 06/23/20 06/23/20 01:00 01:10 01:20 Temperature Pulse Rate 101 H 107 H 108 H Respiratory 31 H 30 H 23 Rate Blood Pressure 106/56 106/56 105/56 O2 Sat by Pulse 99 99 99 Oximetry O2 Sat by Pulse Oximetry [ Anterior Bilateral Throughout] 06/23/20 06/23/20 06/23/20 01:30 01:40 01:50 Temperature Pulse Rate 103 H 104 H 111 H Respiratory 30 H 28 H 30 H Rate Blood Pressure 104/50 104/50 109/55 O2 Sat by Pulse 99 99 99 Oximetry O2 Sat by Pulse Oximetry [ Anterior Bilateral Throughout] 06/23/20 06/23/20 06/23/20 02:00 02:10 02:20 Temperature Pulse Rate 106 H 109 H 107 H Respiratory 30 H 28 H 30 H Rate Blood Pressure 112/55 112/55 114/53 O2 Sat by Pulse 99 99 99 Oximetry O2 Sat by Pulse Oximetry [ Anterior Bilateral Throughout] 06/23/20 06/23/20 06/23/20 02:30 02:40 02:50 Temperature Pulse Rate 100 H 106 H 113 H Respiratory 30 H 30 H 30 H Rate Blood Pressure 104/59 104/59 106/51 O2 Sat by Pulse 99 99 99 Oximetry O2 Sat by Pulse Oximetry [ Anterior Bilateral Throughout] 06/23/20 06/23/20 06/23/20 03:00 03:10 03:20 Temperature Pulse Rate 111 H 121 H 126 H Respiratory 29 H 28 H 31 H Rate Blood Pressure 97/52 97/52 96/51 O2 Sat by Pulse 97 91 98 Oximetry O2 Sat by Pulse Oximetry [ Anterior Bilateral Throughout] 06/23/20 06/23/20 06/23/20 03:30 03:40 03:50 Temperature Pulse Rate 97 H 104 H 99 H Respiratory 28 H 32 H 30 H Rate Blood Pressure 99/51 99/51 109/54 O2 Sat by Pulse 100 99 98 Oximetry O2 Sat by Pulse Oximetry [ Anterior Bilateral Throughout] 06/23/20 06/23/20 06/23/20 04:00 04:10 04:20 Temperature 98.1 F Pulse Rate 100 H 101 H 101 H Respiratory 30 H 30 H 30 H Rate Blood Pressure 95/49 95/49 99/51 O2 Sat by Pulse 98 98 98 Oximetry O2 Sat by Pulse Oximetry [ Anterior Bilateral Throughout] 06/23/20 06/23/20 06/23/20 04:26 04:30 04:40 Temperature Pulse Rate 98 H 114 H 103 H Respiratory 30 H 30 H Rate Blood Pressure 104/53 107/57 107/57 O2 Sat by Pulse 97 97 97 Oximetry O2 Sat by Pulse Oximetry [ Anterior Bilateral Throughout] 06/23/20 06/23/20 06/23/20 04:50 05:00 05:10 Temperature Pulse Rate 97 H 115 H 115 H Respiratory 30 H 30 H 30 H Rate Blood Pressure 104/53 98/50 98/50 O2 Sat by Pulse 96 94 96 Oximetry O2 Sat by Pulse Oximetry [ Anterior Bilateral Throughout] 06/23/20 06/23/20 06/23/20 05:20 05:30 05:40 Temperature Pulse Rate 98 H 102 H 98 H Respiratory 28 H 32 H 29 H Rate Blood Pressure 107/57 104/68 104/68 O2 Sat by Pulse 97 97 97 Oximetry O2 Sat by Pulse Oximetry [ Anterior Bilateral Throughout] 02/04/0206/23/20 06/23/20 05:50 06:00 06:10 Temperature Pulse Rate 94 H 102 H 99 H Respiratory 30 H 31 H 30 H Rate Blood Pressure 107/71 116/67 116/67 O2 Sat by Pulse 97 97 97 Oximetry O2 Sat by Pulse Oximetry [ Anterior Bilateral Throughout] 06/23/20 06/23/20 06/23/20 07:47 08:18 09:15 Temperature 99.1 F 99.1 F Pulse Rate 87 97 H Respiratory 30 H Rate Blood Pressure 111/58 109/62 O2 Sat by Pulse 96 Oximetry O2 Sat by Pulse 94 Oximetry [ Anterior Bilateral Throughout] 06/23/20 06/23/20 06/23/20 09:25 09:30 09:45 Temperature Pulse Rate 77 94 H 96 H Respiratory Rate Blood Pressure 113/58 115/71 101/54 O2 Sat by Pulse Oximetry O2 Sat by Pulse Oximetry [ Anterior Bilateral Throughout] 06/23/20 06/23/20 06/23/20 10:00 10:15 10:30 Temperature Pulse Rate 96 H 101 H 91 H Respiratory Rate Blood Pressure 96/51 110/58 92/53 O2 Sat by Pulse Oximetry O2 Sat by Pulse Oximetry [ Anterior Bilateral Throughout] 06/23/20 06/23/20 06/23/20 10:45 10:48 11:00 Temperature Pulse Rate 92 H 92 H 92 H Respiratory Rate Blood Pressure 84/54 100/61 104/62 O2 Sat by Pulse Oximetry O2 Sat by Pulse Oximetry [ Anterior Bilateral Throughout] 06/23/20 06/23/20 06/23/20 11:15 11:20 11:30 Temperature Pulse Rate 96 H 94 H 101 H Respiratory Rate Blood Pressure 98/65 98/65 93/60 O2 Sat by Pulse 94 Oximetry O2 Sat by Pulse Oximetry [ Anterior Bilateral Throughout] 06/23/20 06/23/20 06/23/20 11:45 11:58 12:00 Temperature 98.6 F Pulse Rate 97 H 139 H Respiratory Rate Blood Pressure 106/55 81/45 O2 Sat by Pulse Oximetry O2 Sat by Pulse Oximetry [ Anterior Bilateral Throughout] 06/23/20 12:04 Temperature Pulse Rate 128 H Respiratory Rate Blood Pressure 90/46 O2 Sat by Pulse Oximetry O2 Sat by Pulse Oximetry [ Anterior Bilateral Throughout] Constitutional: other (morbidly obese, atraumatic, normocephalic, mild resp distress, orally intuabted) Eyes: non-icteric ENT: oropharynx moist, other (ETT 24 cm TROY) Neck: supple, no lymphadenopathy, other (Large , short neck) Effort: mildly labored Ascultation: Bilateral: diminished breath sounds, rhonchi Percussion: Bilateral: not dull Cardiovascular: irregular rhythm, other (S1,S2) Gastrointestinal: normoactive bowel sounds, non-distended Integumentary: rash, other (Femoral CVC, Newell catheter) Extremities: no edema, pink and warm, pulses normal, no ischemia or petechiae Neurologic: pupils equal and round, other (unable to assess, sedated) Psychiatric: other (unable to assess, sedated) CBC and BMP: 06/23/20 04:00 06/23/20 04:00 ABG, PT/INR, D-dimer: ABG ABG pH 7.318 (7.320-7.450) L 06/23/20 02:41 POC ABG pCO2 39.5 mmHg (32.0-48.0) 06/23/20 02:41 POC ABG pO2 157.5 mmHg (83-108) H 06/23/20 02:41 POC ABG HCO3 19.8 06/23/20 02:41 PT/INR, D-dimer PT 16.4 Sec. (12.2-14.9) H 06/19/20 12:30 INR 1.32 (0.87-1.13) H 06/19/20 12:30 D-Dimer 939.89 ng/mlDDU (0-234) H 06/17/20 14:48 Abnormal lab findings: Abnormal Labs 06/17/20 06/17/20 06/17/20 12:33 12:33 12:33 WBC 19.5 H RBC 5.18 H Hgb 15.5 H Hct RDW Lymph % (Auto) 3.8 L Lymph # (Auto) 0.7 L Seg Neuts % (Manual) 99.0 H Lymphocytes % (Manual) 1.0 L Nucleated RBC % Seg Neutrophils # 18.2 H Seg Neutrophils # Man 19.3 H Lymphocytes # (Manual) 0.2 L Monocytes # (Manual) PT 16.5 H INR 1.33 H D-Dimer 1025.04 H Heparin Anti-Xa Level ABG pH POC ABG pCO2 POC ABG pO2 ABG Oxyhemoglobin ABG Sodium ABG Potassium ABG Chloride ABG Glucose Carboxyhemoglobin Sodium 130 L Potassium 3.4 L Chloride 95.0 L Carbon Dioxide BUN 21 H Creatinine Glucose 137 H POC Glucose Lactic Acid Calcium 7.9 L Magnesium Ferritin AST 84 H ALT 67 H Lactate Dehydrogenase 437 H Total Creatine Kinase 310 H C-Reactive Protein 27.90 H Total Protein Albumin 2.9 L Triglycerides Arterial Blood Glucose Arterial Blood Ionized Calcium Urine Creatinine Urine Chloride Vancomycin Trough Coronavirus (PCR) 06/17/20 06/17/20 06/17/20 12:33 12:33 14:48 WBC RBC Hgb Hct RDW Lymph % (Auto) Lymph # (Auto) Seg Neuts % (Manual) Lymphocytes % (Manual) Nucleated RBC % Seg Neutrophils # Seg Neutrophils # Man Lymphocytes # (Manual) Monocytes # (Manual) PT INR D-Dimer Heparin Anti-Xa Level ABG pH POC ABG pCO2 POC ABG pO2 ABG Oxyhemoglobin ABG Sodium ABG Potassium ABG Chloride ABG Glucose Carboxyhemoglobin Sodium Potassium Chloride Carbon Dioxide BUN Creatinine Glucose POC Glucose Lactic Acid 2.50 H* 2.20 H* Calcium Magnesium Ferritin 2297.0 H AST ALT Lactate Dehydrogenase Total Creatine Kinase C-Reactive Protein Total Protein Albumin Triglycerides Arterial Blood Glucose Arterial Blood Ionized Calcium Urine Creatinine Urine Chloride Vancomycin Trough Coronavirus (PCR) 06/17/20 06/17/20 06/17/20 14:48 14:48 14:48 WBC RBC Hgb Hct RDW Lymph % (Auto) Lymph # (Auto) Seg Neuts % (Manual) Lymphocytes % (Manual) Nucleated RBC % Seg Neutrophils # Seg Neutrophils # Man Lymphocytes # (Manual) Monocytes # (Manual) PT INR D-Dimer 939.89 H Heparin Anti-Xa Level ABG pH POC ABG pCO2 POC ABG pO2 ABG Oxyhemoglobin ABG Sodium ABG Potassium ABG Chloride ABG Glucose Carboxyhemoglobin Sodium Potassium Chloride Carbon Dioxide BUN Creatinine Glucose 141 H POC Glucose Lactic Acid Calcium Magnesium Ferritin > 2000.0 H AST ALT Lactate Dehydrogenase 503 H Total Creatine Kinase C-Reactive Protein 24.70 H Total Protein Albumin Triglycerides Arterial Blood Glucose Arterial Blood Ionized Calcium Urine Creatinine Urine Chloride Vancomycin Trough Coronavirus (PCR) 06/17/20 06/17/20 06/17/20 16:54 19:39 23:43 WBC RBC Hgb Hct RDW Lymph % (Auto) Lymph # (Auto) Seg Neuts % (Manual) Lymphocytes % (Manual) Nucleated RBC % Seg Neutrophils # Seg Neutrophils # Man Lymphocytes # (Manual) Monocytes # (Manual) PT INR D-Dimer Heparin Anti-Xa Level ABG pH 7.571 H POC ABG pCO2 24.3 L POC ABG pO2 41.6 L ABG Oxyhemoglobin 84.0 L ABG Sodium 131.0 L ABG Potassium ABG Chloride ABG Glucose 163 H Carboxyhemoglobin Sodium Potassium Chloride Carbon Dioxide BUN Creatinine Glucose POC Glucose 185 H Lactic Acid 2.10 H* Calcium Magnesium Ferritin AST ALT Lactate Dehydrogenase Total Creatine Kinase C-Reactive Protein Total Protein Albumin Triglycerides Arterial Blood Glucose 163 H Arterial Blood Ionized Calcium 4.4 L Urine Creatinine Urine Chloride Vancomycin Trough Coronavirus (PCR) 06/18/20 06/18/20 06/18/20 00:17 00:23 03:55 WBC RBC Hgb Hct RDW Lymph % (Auto) Lymph # (Auto) Seg Neuts % (Manual) Lymphocytes % (Manual) Nucleated RBC % Seg Neutrophils # Seg Neutrophils # Man Lymphocytes # (Manual) Monocytes # (Manual) PT INR D-Dimer Heparin Anti-Xa Level ABG pH POC ABG pCO2 POC ABG pO2 56.5 L 48.3 L ABG Oxyhemoglobin 86.3 L 81.7 L ABG Sodium 132.9 L 131.0 L ABG Potassium ABG Chloride ABG Glucose 189 H 161 H Carboxyhemoglobin 0.4 L Sodium Potassium Chloride Carbon Dioxide BUN Creatinine Glucose POC Glucose Lactic Acid 3.80 H* Calcium Magnesium Ferritin AST ALT Lactate Dehydrogenase Total Creatine Kinase C-Reactive Protein Total Protein Albumin Triglycerides Arterial Blood Glucose 189 H 161 H Arterial Blood Ionized Calcium 4.3 L 4.2 L Urine Creatinine Urine Chloride Vancomycin Trough Coronavirus (PCR) 06/18/20 06/18/20 06/18/20 05:39 05:39 05:39 WBC 26.2 H RBC Hgb Hct RDW Lymph % (Auto) Lymph # (Auto) Seg Neuts % (Manual) 90.0 H Lymphocytes % (Manual) 5.0 L Nucleated RBC % Seg Neutrophils # Seg Neutrophils # Man 23.6 H Lymphocytes # (Manual) Monocytes # (Manual) 1.3 H PT INR D-Dimer Heparin Anti-Xa Level ABG pH POC ABG pCO2 POC ABG pO2 ABG Oxyhemoglobin ABG Sodium ABG Potassium ABG Chloride ABG Glucose Carboxyhemoglobin Sodium 135 L Potassium Chloride 97.5 L Carbon Dioxide 21 L BUN 39 H Creatinine 1.7 H D Glucose 168 H POC Glucose Lactic Acid 3.40 H* Calcium 7.2 L Magnesium Ferritin AST ALT Lactate Dehydrogenase Total Creatine Kinase C-Reactive Protein Total Protein Albumin Triglycerides Arterial Blood Glucose Arterial Blood Ionized Calcium Urine Creatinine Urine Chloride Vancomycin Trough Coronavirus (PCR) 06/18/20 06/18/20 06/18/20 07:24 09:00 10:10 WBC RBC Hgb Hct RDW Lymph % (Auto) Lymph # (Auto) Seg Neuts % (Manual) Lymphocytes % (Manual) Nucleated RBC % Seg Neutrophils # Seg Neutrophils # Man Lymphocytes # (Manual) Monocytes # (Manual) PT INR D-Dimer Heparin Anti-Xa Level ABG pH POC ABG pCO2 POC ABG pO2 ABG Oxyhemoglobin ABG Sodium ABG Potassium ABG Chloride ABG Glucose Carboxyhemoglobin Sodium Potassium Chloride Carbon Dioxide BUN Creatinine Glucose POC Glucose Lactic Acid 2.90 H* 3.20 H* Calcium Magnesium Ferritin AST ALT Lactate Dehydrogenase Total Creatine Kinase C-Reactive Protein Total Protein Albumin Triglycerides Arterial Blood Glucose Arterial Blood Ionized Calcium Urine Creatinine Urine Chloride Vancomycin Trough Coronavirus (PCR) Positive A 06/18/20 06/18/20 06/18/20 11:58 14:43 15:00 WBC RBC Hgb Hct RDW Lymph % (Auto) Lymph # (Auto) Seg Neuts % (Manual) Lymphocytes % (Manual) Nucleated RBC % Seg Neutrophils # Seg Neutrophils # Man Lymphocytes # (Manual) Monocytes # (Manual) PT INR D-Dimer Heparin Anti-Xa Level ABG pH 7.303 L POC ABG pCO2 POC ABG pO2 82.3 L ABG Oxyhemoglobin ABG Sodium 135.3 L ABG Potassium ABG Chloride ABG Glucose 215 H Carboxyhemoglobin 0.3 L Sodium Potassium Chloride Carbon Dioxide BUN Creatinine Glucose POC Glucose 209 H Lactic Acid Calcium Magnesium Ferritin AST ALT Lactate Dehydrogenase Total Creatine Kinase C-Reactive Protein Total Protein Albumin Triglycerides Arterial Blood Glucose 215 H Arterial Blood Ionized Calcium 4.2 L Urine Creatinine 192.4 H Urine Chloride 31.1 L Vancomycin Trough Coronavirus (PCR) 06/18/20 06/18/20 06/18/20 17:16 19:44 20:33 WBC RBC Hgb Hct RDW Lymph % (Auto) Lymph # (Auto) Seg Neuts % (Manual) Lymphocytes % (Manual) Nucleated RBC % Seg Neutrophils # Seg Neutrophils # Man Lymphocytes # (Manual) Monocytes # (Manual) PT INR D-Dimer Heparin Anti-Xa Level ABG pH POC ABG pCO2 POC ABG pO2 ABG Oxyhemoglobin ABG Sodium ABG Potassium ABG Chloride ABG Glucose Carboxyhemoglobin Sodium Potassium Chloride Carbon Dioxide BUN Creatinine Glucose POC Glucose 182 H Lactic Acid 3.00 H* Calcium Magnesium 2.70 H Ferritin AST ALT Lactate Dehydrogenase Total Creatine Kinase C-Reactive Protein Total Protein Albumin Triglycerides Arterial Blood Glucose Arterial Blood Ionized Calcium Urine Creatinine Urine Chloride Vancomycin Trough Coronavirus (PCR) 06/18/20 06/19/20 06/19/20 23:43 04:00 04:00 WBC 31.6 H RBC Hgb Hct RDW Lymph % (Auto) Lymph # (Auto) Seg Neuts % (Manual) 98.0 H Lymphocytes % (Manual) 0.5 L Nucleated RBC % Seg Neutrophils # Seg Neutrophils # Man 31.0 H Lymphocytes # (Manual) 0.2 L Monocytes # (Manual) PT INR D-Dimer Heparin Anti-Xa Level ABG pH POC ABG pCO2 POC ABG pO2 ABG Oxyhemoglobin ABG Sodium ABG Potassium ABG Chloride ABG Glucose Carboxyhemoglobin Sodium Potassium Chloride Carbon Dioxide BUN 56 H Creatinine 1.6 H Glucose 176 H POC Glucose 149 H Lactic Acid Calcium 7.0 L Magnesium Ferritin AST 244 H ALT 159 H Lactate Dehydrogenase Total Creatine Kinase C-Reactive Protein Total Protein 4.9 L D Albumin 2.5 L Triglycerides Arterial Blood Glucose Arterial Blood Ionized Calcium Urine Creatinine Urine Chloride Vancomycin Trough Coronavirus (PCR) 06/19/20 06/19/20 06/19/20 04:00 05:44 11:42 WBC RBC Hgb Hct RDW Lymph % (Auto) Lymph # (Auto) Seg Neuts % (Manual) Lymphocytes % (Manual) Nucleated RBC % Seg Neutrophils # Seg Neutrophils # Man Lymphocytes # (Manual) Monocytes # (Manual) PT INR D-Dimer Heparin Anti-Xa Level ABG pH 7.265 L POC ABG pCO2 51.8 H POC ABG pO2 65.1 L ABG Oxyhemoglobin ABG Sodium ABG Potassium ABG Chloride ABG Glucose 184 H Carboxyhemoglobin Sodium Potassium Chloride Carbon Dioxide BUN Creatinine Glucose POC Glucose 156 H 191 H Lactic Acid Calcium Magnesium Ferritin AST ALT Lactate Dehydrogenase Total Creatine Kinase C-Reactive Protein Total Protein Albumin Triglycerides Arterial Blood Glucose 184 H Arterial Blood Ionized Calcium 4.3 L Urine Creatinine Urine Chloride Vancomycin Trough Coronavirus (PCR) 06/19/20 06/19/20 06/19/20 12:30 17:16 18:36 WBC RBC Hgb Hct RDW Lymph % (Auto) Lymph # (Auto) Seg Neuts % (Manual) Lymphocytes % (Manual) Nucleated RBC % Seg Neutrophils # Seg Neutrophils # Man Lymphocytes # (Manual) Monocytes # (Manual) PT 16.4 H INR 1.32 H D-Dimer Heparin Anti-Xa Level ABG pH 7.088 L POC ABG pCO2 78.1 H POC ABG pO2 208.3 H ABG Oxyhemoglobin 98.3 H ABG Sodium ABG Potassium 5.0 H ABG Chloride ABG Glucose 182 H Carboxyhemoglobin 0.4 L Sodium Potassium Chloride Carbon Dioxide BUN Creatinine Glucose POC Glucose 154 H Lactic Acid Calcium Magnesium Ferritin AST ALT Lactate Dehydrogenase Total Creatine Kinase C-Reactive Protein Total Protein Albumin Triglycerides Arterial Blood Glucose 182 H Arterial Blood Ionized Calcium 4.3 L Urine Creatinine Urine Chloride Vancomycin Trough Coronavirus (PCR) 06/19/20 06/20/20 06/20/20 23:32 03:00 05:19 WBC RBC Hgb Hct RDW Lymph % (Auto) Lymph # (Auto) Seg Neuts % (Manual) Lymphocytes % (Manual) Nucleated RBC % Seg Neutrophils # Seg Neutrophils # Man Lymphocytes # (Manual) Monocytes # (Manual) PT INR D-Dimer Heparin Anti-Xa Level 0.77 H ABG pH POC ABG pCO2 POC ABG pO2 ABG Oxyhemoglobin ABG Sodium ABG Potassium ABG Chloride ABG Glucose Carboxyhemoglobin Sodium Potassium Chloride Carbon Dioxide BUN Creatinine Glucose POC Glucose 201 H 190 H Lactic Acid Calcium Magnesium Ferritin AST ALT Lactate Dehydrogenase Total Creatine Kinase C-Reactive Protein Total Protein Albumin Triglycerides Arterial Blood Glucose Arterial Blood Ionized Calcium Urine Creatinine Urine Chloride Vancomycin Trough Coronavirus (PCR) 06/20/20 06/20/20 06/20/20 08:25 08:25 11:36 WBC RBC Hgb Hct RDW Lymph % (Auto) Lymph # (Auto) Seg Neuts % (Manual) Lymphocytes % (Manual) Nucleated RBC % Seg Neutrophils # Seg Neutrophils # Man Lymphocytes # (Manual) Monocytes # (Manual) PT INR D-Dimer Heparin Anti-Xa Level ABG pH POC ABG pCO2 POC ABG pO2 ABG Oxyhemoglobin ABG Sodium ABG Potassium ABG Chloride ABG Glucose Carboxyhemoglobin Sodium 135 L Potassium 5.4 H Chloride 109.2 H Carbon Dioxide 19 L BUN 68 H Creatinine 2.5 H D Glucose 201 H POC Glucose 184 H Lactic Acid Calcium 5.5 L* D Magnesium Ferritin AST 123 H ALT 86 H Lactate Dehydrogenase Total Creatine Kinase C-Reactive Protein Total Protein 4.6 L Albumin 1.5 L Triglycerides Arterial Blood Glucose Arterial Blood Ionized Calcium Urine Creatinine Urine Chloride Vancomycin Trough 22.7 H Coronavirus (PCR) 06/20/20 06/20/20 06/20/20 11:40 17:28 20:00 WBC RBC Hgb Hct RDW Lymph % (Auto) Lymph # (Auto) Seg Neuts % (Manual) Lymphocytes % (Manual) Nucleated RBC % Seg Neutrophils # Seg Neutrophils # Man Lymphocytes # (Manual) Monocytes # (Manual) PT INR D-Dimer Heparin Anti-Xa Level 0.89 H ABG pH 7.099 L POC ABG pCO2 61.1 H POC ABG pO2 ABG Oxyhemoglobin ABG Sodium ABG Potassium 5.0 H ABG Chloride 111.0 H ABG Glucose 200 H Carboxyhemoglobin 0.4 L Sodium Potassium Chloride Carbon Dioxide BUN Creatinine Glucose POC Glucose 165 H Lactic Acid Calcium Magnesium Ferritin AST ALT Lactate Dehydrogenase Total Creatine Kinase C-Reactive Protein Total Protein Albumin Triglycerides Arterial Blood Glucose 200 H Arterial Blood Ionized Calcium 4.2 L Urine Creatinine Urine Chloride Vancomycin Trough Coronavirus (PCR) 06/20/20 06/21/20 06/21/20 23:29 05:00 05:20 WBC RBC Hgb Hct RDW Lymph % (Auto) Lymph # (Auto) Seg Neuts % (Manual) Lymphocytes % (Manual) Nucleated RBC % Seg Neutrophils # Seg Neutrophils # Man Lymphocytes # (Manual) Monocytes # (Manual) PT INR D-Dimer Heparin Anti-Xa Level ABG pH POC ABG pCO2 POC ABG pO2 ABG Oxyhemoglobin ABG Sodium ABG Potassium ABG Chloride ABG Glucose Carboxyhemoglobin Sodium Potassium Chloride 112.0 H Carbon Dioxide 20 L BUN 92 H Creatinine 3.9 H D Glucose 214 H POC Glucose 145 H 191 H Lactic Acid Calcium 6.5 L D Magnesium Ferritin AST 98 H ALT 84 H Lactate Dehydrogenase Total Creatine Kinase C-Reactive Protein Total Protein 4.6 L Albumin 2.1 L Triglycerides 180 H Arterial Blood Glucose Arterial Blood Ionized Calcium Urine Creatinine Urine Chloride Vancomycin Trough Coronavirus (PCR) 06/21/20 06/21/20 06/21/20 08:56 11:12 12:43 WBC RBC Hgb Hct RDW Lymph % (Auto) Lymph # (Auto) Seg Neuts % (Manual) Lymphocytes % (Manual) Nucleated RBC % Seg Neutrophils # Seg Neutrophils # Man Lymphocytes # (Manual) Monocytes # (Manual) PT INR D-Dimer Heparin Anti-Xa Level 0.28 L ABG pH 7.184 L POC ABG pCO2 48.3 H POC ABG pO2 172.1 H ABG Oxyhemoglobin 98.7 H ABG Sodium ABG Potassium 4.9 H ABG Chloride 112.0 H ABG Glucose 196 H Carboxyhemoglobin 0.2 L Sodium Potassium Chloride Carbon Dioxide BUN Creatinine Glucose POC Glucose 177 H Lactic Acid Calcium Magnesium Ferritin AST ALT Lactate Dehydrogenase Total Creatine Kinase C-Reactive Protein Total Protein Albumin Triglycerides Arterial Blood Glucose 196 H Arterial Blood Ionized Calcium 4.1 L Urine Creatinine Urine Chloride Vancomycin Trough Coronavirus (PCR) 06/21/20 06/21/20 06/22/20 16:31 Unknown 00:12 WBC RBC Hgb Hct RDW Lymph % (Auto) Lymph # (Auto) Seg Neuts % (Manual) Lymphocytes % (Manual) Nucleated RBC % Seg Neutrophils # Seg Neutrophils # Man Lymphocytes # (Manual) Monocytes # (Manual) PT INR D-Dimer Heparin Anti-Xa Level 0.78 H ABG pH POC ABG pCO2 POC ABG pO2 ABG Oxyhemoglobin ABG Sodium ABG Potassium ABG Chloride ABG Glucose Carboxyhemoglobin Sodium Potassium Chloride Carbon Dioxide BUN Creatinine Glucose POC Glucose 150 H 173 H Lactic Acid Calcium Magnesium Ferritin AST ALT Lactate Dehydrogenase Total Creatine Kinase C-Reactive Protein Total Protein Albumin Triglycerides Arterial Blood Glucose Arterial Blood Ionized Calcium Urine Creatinine Urine Chloride Vancomycin Trough Coronavirus (PCR) 06/22/20 06/22/20 06/22/20 04:00 05:04 05:30 WBC 33.9 H RBC Hgb 11.7 L Hct 35.2 L RDW 15.8 H Lymph % (Auto) Lymph # (Auto) Seg Neuts % (Manual) 93.0 H Lymphocytes % (Manual) 5.0 L Nucleated RBC % Seg Neutrophils # Seg Neutrophils # Man 31.5 H Lymphocytes # (Manual) Monocytes # (Manual) PT INR D-Dimer Heparin Anti-Xa Level ABG pH 7.169 L POC ABG pCO2 POC ABG pO2 ABG Oxyhemoglobin ABG Sodium ABG Potassium 5.1 H ABG Chloride 112.0 H ABG Glucose 186 H Carboxyhemoglobin 0.3 L Sodium Potassium Chloride Carbon Dioxide BUN Creatinine Glucose POC Glucose 161 H Lactic Acid Calcium Magnesium Ferritin AST ALT Lactate Dehydrogenase Total Creatine Kinase C-Reactive Protein Total Protein Albumin Triglycerides Arterial Blood Glucose 186 H Arterial Blood Ionized Calcium 4.1 L Urine Creatinine Urine Chloride Vancomycin Trough Coronavirus (PCR) 06/22/20 06/22/20 06/22/20 05:30 11:39 13:27 WBC RBC Hgb Hct RDW Lymph % (Auto) Lymph # (Auto) Seg Neuts % (Manual) Lymphocytes % (Manual) Nucleated RBC % Seg Neutrophils # Seg Neutrophils # Man Lymphocytes # (Manual) Monocytes # (Manual) PT INR D-Dimer Heparin Anti-Xa Level ABG pH POC ABG pCO2 POC ABG pO2 ABG Oxyhemoglobin ABG Sodium ABG Potassium ABG Chloride ABG Glucose Carboxyhemoglobin Sodium Potassium 5.7 H Chloride 111.3 H Carbon Dioxide 18 L BUN 112 H Creatinine 5.0 H Glucose 173 H POC Glucose 172 H 176 H Lactic Acid Calcium 6.7 L Magnesium Ferritin AST ALT Lactate Dehydrogenase Total Creatine Kinase C-Reactive Protein Total Protein Albumin Triglycerides Arterial Blood Glucose Arterial Blood Ionized Calcium Urine Creatinine Urine Chloride Vancomycin Trough Coronavirus (PCR) 06/22/20 06/22/20 06/22/20 14:37 17:00 17:40 WBC RBC Hgb Hct RDW Lymph % (Auto) Lymph # (Auto) Seg Neuts % (Manual) Lymphocytes % (Manual) Nucleated RBC % Seg Neutrophils # Seg Neutrophils # Man Lymphocytes # (Manual) Monocytes # (Manual) PT INR D-Dimer Heparin Anti-Xa Level 1.32 H ABG pH POC ABG pCO2 POC ABG pO2 ABG Oxyhemoglobin ABG Sodium ABG Potassium ABG Chloride ABG Glucose Carboxyhemoglobin Sodium Potassium Chloride Carbon Dioxide BUN Creatinine Glucose POC Glucose 171 H Lactic Acid Calcium Magnesium Ferritin AST ALT Lactate Dehydrogenase Total Creatine Kinase C-Reactive Protein 5.30 H Total Protein Albumin Triglycerides Arterial Blood Glucose Arterial Blood Ionized Calcium Urine Creatinine Urine Chloride Vancomycin Trough Coronavirus (PCR) 06/22/20 06/23/20 06/23/20 23:36 02:13 02:41 WBC RBC Hgb Hct RDW Lymph % (Auto) Lymph # (Auto) Seg Neuts % (Manual) Lymphocytes % (Manual) Nucleated RBC % Seg Neutrophils # Seg Neutrophils # Man Lymphocytes # (Manual) Monocytes # (Manual) PT INR D-Dimer Heparin Anti-Xa Level 0.21 L ABG pH 7.318 L POC ABG pCO2 POC ABG pO2 157.5 H ABG Oxyhemoglobin ABG Sodium 135.6 L ABG Potassium 4.6 H ABG Chloride 110.0 H ABG Glucose 169 H Carboxyhemoglobin Sodium Potassium Chloride Carbon Dioxide BUN Creatinine Glucose POC Glucose 155 H Lactic Acid Calcium Magnesium Ferritin AST ALT Lactate Dehydrogenase Total Creatine Kinase C-Reactive Protein Total Protein Albumin Triglycerides Arterial Blood Glucose 169 H Arterial Blood Ionized Calcium Urine Creatinine Urine Chloride Vancomycin Trough Coronavirus (PCR) 06/23/20 06/23/20 06/23/20 04:00 04:00 05:24 WBC 27.4 H RBC Hgb 11.3 L Hct 33.8 L RDW Lymph % (Auto) Lymph # (Auto) Seg Neuts % (Manual) 93.0 H Lymphocytes % (Manual) 1.0 L Nucleated RBC % 1.0 H Seg Neutrophils # Seg Neutrophils # Man 25.5 H Lymphocytes # (Manual) 0.3 L Monocytes # (Manual) 1.1 H PT INR D-Dimer Heparin Anti-Xa Level ABG pH POC ABG pCO2 POC ABG pO2 ABG Oxyhemoglobin ABG Sodium ABG Potassium ABG Chloride ABG Glucose Carboxyhemoglobin Sodium Potassium Chloride 107.6 H Carbon Dioxide 20 L BUN 100 H Creatinine 4.7 H Glucose 168 H POC Glucose 151 H Lactic Acid Calcium Magnesium Ferritin AST ALT Lactate Dehydrogenase Total Creatine Kinase C-Reactive Protein Total Protein Albumin Triglycerides Arterial Blood Glucose Arterial Blood Ionized Calcium Urine Creatinine Urine Chloride Vancomycin Trough Coronavirus (PCR) Prior PFT's, U/S of legs: report reviewed (negative for DVT) Allied health notes reviewed: nursing
--- NOTE | 2020-06-23 13:18 | Progress Note ---
Assessment and Plan Agree with present cardiac management. Consider IV amio if necessary for HR optimization. Obtain tte once COVID-19 infection is adequately managed. Cont vasopressors and supportive management per primary/critical care team. 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 Overall guarded prognosis. The patient has been seen in conjunction with Dr. Chavis who agrees with the assessment and plan of care. - Patient Problems (1) Acute respiratory failure with hypoxia Current Visit: Yes Status: Acute (2) Pneumonia due to COVID-19 virus Current Visit: Yes Status: Acute (3) Sepsis Current Visit: Yes Status: Acute Qualifiers: Severe sepsis acute organ dysfunction type: acute respiratory failure Severe sepsis shock status: with septic shock (4) Atrial fibrillation with rapid ventricular response Current Visit: Yes Status: Acute (5) Acute renal failure Current Visit: Yes Status: Acute (6) Elevated LFTs Current Visit: Yes Status: Acute Subjective Date of service: 06/23/20 Principal diagnosis: ARF/Septic Shock/COVID-19 PNA, AF with RVR Interval history: pt remains intubated, sedated, turned to supine position due to need for HD access placement yesterday. requiring multiple vasopressors. on heparin gtt. tele reviewed - in AFib/AFlutter HR 100s. Objective Last Vital Signs Temp 98.6 F 06/23/20 12:00 Pulse 128 H 06/23/20 12:04 Resp 30 H 06/23/20 09:15 BP 90/46 06/23/20 12:04 Pulse Ox 94 06/23/20 11:20 - Physical Examination General: Other (intubated, sedated) Neck: Positive: neck supple Cardiac: Positive: irregularly irregular, S1/S2 Lungs: Positive: Decreased Breath Sounds, Oxygen, Ventilated Respirations Neuro: Positive: Other (intubated, sedated) Skin: Negative: Rash - Labs and Meds CBC 06/23/20 Range/Units 04:00 WBC 27.4 H (4.5-11.0) K/mm3 RBC 3.81 (3.65-5.03) M/mm3 Hgb 11.3 L (11.8-15.2) gm/dl Hct 33.8 L (35.5-45.6) % Plt Count 179 (140-440) K/mm3 Comprehensive Metabolic Panel 06/23/20 Range/Units 04:00 Sodium 143 (137-145) mmol/L Potassium 4.8 (3.6-5.0) mmol/L Chloride 107.6 H (98-107) mmol/L Carbon Dioxide 20 L (22-30) mmol/L BUN 100 H (9-20) mg/dL Creatinine 4.7 H (0.8-1.3) mg/dL Glucose 168 H (75-100) mg/dL Calcium 8.5 D (8.4-10.2) mg/dL - Imaging and Cardiology EKG: report reviewed, image reviewed - Allied health notes Allied health notes reviewed: nursing
[2020-06-23] MEDS: HEPARIN/ 0.45% NACL DRIP 25,000 UNIT/500 ML BAG IV SCH (13:24)
--- NOTE | 2020-06-23 13:59 | Progress Note ---
Assessment and Plan 59-year-old white male who was admitted for pneumonia secondary to Covid with associated respiratory failure and sepsis. Acute metabolic encephalopathy -Due to severe sepsis and severe hypoxia -CT head ordered (patient is too unstable to do the scan), currently intubated, continue supportive care with frequent neuro check Acute hypoxic respiratory failure -Due to severe COVID-19 pneumonia -Intubated following admission overnight as patient was unable to maintain oxygenation with 100% FiO2 with BiPAP -Critical care following, frequent nebulizer breathing treatment, empiric steroid Severe septic shock -Patient currently on 2 pressor support -Wean off as tolerated COVID-19 pneumonia -Follow inflammatory markers, ID consulted --Patient initially tested positive for COVID-19 virus about 2 weeks before this admission -CXR shows patchy parenchymal disease which represent pulmonary edema or atypical pneumonia -Placed on dexamethasone for total 10 days and completed remdesivir total 5 days -Continue empiric antibiotics for now per ID recommendation -Droplet/contact isolation -Continue SPO2 monitoring -Supplemental oxygen as needed -Pulmonary hygiene, Prone intermittently to improve oxygenation -Vitamin C, vitamin D, zinc -Anticoagulation per protocol -Lasix IV as needed to prevent pulmonary edema GIRISH, likely ATN -Follow BMP daily, avoid nephrotoxins -Consulted nephrology, follow recommendations -Renal function continues to decline, started on hemodialysis since 06/22/20 hypokalemia, repleted Supraventricular tachycardia/paroxysmal atrial fibrillation -likely due to severe sepsis -Patient currently on 2 pressor, will initiate IV amiodarone drip for rate control if needed -Consulted cardiology, echo ordered currently pending -Placed on heparin drip Elevated LFT, due to shock liver from severe sepsis and COVID-19 infection -Continue to trend Morbid obesity, -Associated with poor outcome with Covid infection -need counseling for diet and exercise and healthy lifestyles once clinically stable as outpatient DVT prophylaxis, per Covid protocol Full CODE STATUS Poor prognosis The high probability of a clinically significant, sudden or life threatening deterioration of the [[employer], [employer], 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 The aggregate critical care time was [42] minutes. This time is in addition to time spent performing reported procedures but includes the following: [x] Data Review and interpretation [x] Patient assessment and monitoring of vital signs [x] Documentation [x] Medication orders and management daily course: 06/18: Patient got intubated overnight. Patient was placed on BiPAP to maintain oxygenation with 100% FiO2 but apparently he found to take off his argueta which made his oxygen saturation go down at 60s/50s and patient was found altered mental status. Code met was called immediately. Patient was transferred to ICU and intubated, patient currently on 2 pressors, intubated with 100% FiO2, renal function noted to be decline, nephrology consulted. Discussed with [place] physician Dr. Thompson and requested call back on Saturday. Poor prognosis, continue to monitor with aggressive supportive care. Also called family/ to update clinical status. 06/19: Repeat COVID test was positive. cont cefepime, remdesivir per ID recommendation. follow inflammatory markers, cbc, bmp. placed on heparin drip for atrial fib 06/20: Remains on mechanical ventilation, on 2 pressors, on heparin drip. discussed with and daughter by phone. Renal function declining. cont supportive care for now. 06/21: Renal function cont to decline, urine outpt sig decreased. started on lasix 80mg BID, plan to follow urine output, if no improvement patient need to start on HD. called and daughter today. updated all clinical details 06/22: Renal function continues to decline with uremia and hyperkalemia. Will need to proceed with hemodialysis. Nephrology discussed with the family and they agrees for the hemodialysis. Patient remains on pressor support and mechanical ventilation. Vas-Cath placed today by vascular started on hemodialysis today. 06/23: 2nd round of HD today, remains on 2 pressors. per RN not tolerating TF, has no record of BM since 06/18. start on stool softner. follow cbc/bmp. updated family( and daughter) by phone -all question answered to best of my knowledge and to their satisfaction. Patient remains critically ill with a very poor prognosis. Subjective Date of service: 06/23/20 Principal diagnosis: ARF/Septic Shock/COVID-19 PNA, AF with RVR Interval history: Patient seen and examined Currently on 2 pressors, mechanically ventilated and sedated Noted vitals, lab results reviewed Discussed with RN at the bedside and critical care attending Objective - Exam Narrative Exam: Limited physical exam due to COVID-19 pandemic to minimize transmission of the disease and to preserve PPE. Vital reviewed and stable. GENERAL: Well-developed obese white male lying on bed who is mechanically ventilated and sedated. HEENT: Normocephalic. Atraumatic. NECK: Supple. CHEST/LUNGS: On mechanical ventilation HEART/CARDIOVASCULAR: Tachycardic ABDOMEN: Visibly not distended SKIN: There is no rash NEURO: Patient is intubated MUSCULOSKELETAL: No joint effusion EXTRIMITY: no cyanosis or clubbing. PSYCH: Unable to assess. - Constitutional Vitals: Vital Signs - 12hr 06/23/20 06/23/20 06/23/20 02:00 02:10 02:20 Temperature Pulse Rate 106 H 109 H 107 H Respiratory 30 H 28 H 30 H Rate Blood Pressure 112/55 112/55 114/53 O2 Sat by Pulse 99 99 99 Oximetry O2 Sat by Pulse Oximetry [ Anterior Bilateral Throughout] 06/23/20 06/23/20 06/23/20 02:30 02:40 02:50 Temperature Pulse Rate 100 H 106 H 113 H Respiratory 30 H 30 H 30 H Rate Blood Pressure 104/59 104/59 106/51 O2 Sat by Pulse 99 99 99 Oximetry O2 Sat by Pulse Oximetry [ Anterior Bilateral Throughout] 06/23/20 06/23/20 06/23/20 03:00 03:10 03:20 Temperature Pulse Rate 111 H 121 H 126 H Respiratory 29 H 28 H 31 H Rate Blood Pressure 97/52 97/52 96/51 O2 Sat by Pulse 97 91 98 Oximetry O2 Sat by Pulse Oximetry [ Anterior Bilateral Throughout] 06/23/20 06/23/20 06/23/20 03:30 03:40 03:50 Temperature Pulse Rate 97 H 104 H 99 H Respiratory 28 H 32 H 30 H Rate Blood Pressure 99/51 99/51 109/54 O2 Sat by Pulse 100 99 98 Oximetry O2 Sat by Pulse Oximetry [ Anterior Bilateral Throughout] 06/23/20 06/23/20 06/23/20 04:00 04:10 04:20 Temperature 98.1 F Pulse Rate 100 H 101 H 101 H Respiratory 30 H 30 H 30 H Rate Blood Pressure 95/49 95/49 99/51 O2 Sat by Pulse 98 98 98 Oximetry O2 Sat by Pulse Oximetry [ Anterior Bilateral Throughout] 06/23/20 06/23/20 06/23/20 04:26 04:30 04:40 Temperature Pulse Rate 98 H 114 H 103 H Respiratory 30 H 30 H Rate Blood Pressure 104/53 107/57 107/57 O2 Sat by Pulse 97 97 97 Oximetry O2 Sat by Pulse Oximetry [ Anterior Bilateral Throughout] 06/23/20 06/23/20 06/23/20 04:50 05:00 05:10 Temperature Pulse Rate 97 H 115 H 115 H Respiratory 30 H 30 H 30 H Rate Blood Pressure 104/53 98/50 98/50 O2 Sat by Pulse 96 94 96 Oximetry O2 Sat by Pulse Oximetry [ Anterior Bilateral Throughout] 06/23/20 06/23/20 06/23/20 05:20 05:30 05:40 Temperature Pulse Rate 98 H 102 H 98 H Respiratory 28 H 32 H 29 H Rate Blood Pressure 107/57 104/68 104/68 O2 Sat by Pulse 97 97 97 Oximetry O2 Sat by Pulse Oximetry [ Anterior Bilateral Throughout] 06/23/20 06/23/20 06/23/20 05:50 06:00 06:10 Temperature Pulse Rate 94 H 102 H 99 H Respiratory 30 H 31 H 30 H Rate Blood Pressure 107/71 116/67 116/67 O2 Sat by Pulse 97 97 97 Oximetry O2 Sat by Pulse Oximetry [ Anterior Bilateral Throughout] 06/23/20 06/23/20 06/23/20 07:47 08:18 09:15 Temperature 99.1 F 99.1 F Pulse Rate 87 97 H Respiratory 30 H Rate Blood Pressure 111/58 109/62 O2 Sat by Pulse 96 Oximetry O2 Sat by Pulse 94 Oximetry [ Anterior Bilateral Throughout] 06/23/20 06/23/20 06/23/20 09:25 09:30 09:45 Temperature Pulse Rate 77 94 H 96 H Respiratory Rate Blood Pressure 113/58 115/71 101/54 O2 Sat by Pulse Oximetry O2 Sat by Pulse Oximetry [ Anterior Bilateral Throughout] 06/23/20 06/23/20 06/23/20 10:00 10:15 10:30 Temperature Pulse Rate 96 H 101 H 91 H Respiratory Rate Blood Pressure 96/51 110/58 92/53 O2 Sat by Pulse Oximetry O2 Sat by Pulse Oximetry [ Anterior Bilateral Throughout] 06/23/20 06/23/20 06/23/20 10:45 10:48 11:00 Temperature Pulse Rate 92 H 92 H 92 H Respiratory Rate Blood Pressure 84/54 100/61 104/62 O2 Sat by Pulse Oximetry O2 Sat by Pulse Oximetry [ Anterior Bilateral Throughout] 06/23/20 06/23/20 06/23/20 11:15 11:20 11:30 Temperature Pulse Rate 96 H 94 H 101 H Respiratory Rate Blood Pressure 98/65 98/65 93/60 O2 Sat by Pulse 94 Oximetry O2 Sat by Pulse Oximetry [ Anterior Bilateral Throughout] 06/23/20 06/23/20 06/23/20 11:45 12:00 12:04 Temperature 98.6 F Pulse Rate 97 H 139 H 128 H Respiratory Rate Blood Pressure 106/55 81/45 88/46 O2 Sat by Pulse Oximetry O2 Sat by Pulse Oximetry [ Anterior Bilateral Throughout] 06/23/20 06/23/20 12:15 12:25 Temperature Pulse Rate 142 H 99 H Respiratory 30 H Rate Blood Pressure 85/54 130/54 O2 Sat by Pulse Oximetry O2 Sat by Pulse 94 Oximetry [ Anterior Bilateral Throughout] - Labs CBC & Chem 7: 06/23/20 04:00 06/23/20 04:00 Labs: Abnormal lab results 06/22/20 06/22/20 06/22/20 Range/Units 05:30 11:39 13:27 WBC (4.5-11.0) K/mm3 Hgb (11.8-15.2) gm/dl Hct (35.5-45.6) % Seg Neuts % (Manual) 93.0 H (40.0-70.0) % Lymphocytes % (Manual) 5.0 L (13.4-35.0) % Nucleated RBC % (0.0-0.9) % Seg Neutrophils # Man 31.5 H (1.8-7.7) K/mm3 Lymphocytes # (Manual) (1.2-5.4) K/mm3 Monocytes # (Manual) (0.0-0.8) K/mm3 Heparin Anti-Xa Level (0.3-0.7) U.I./ml ABG pH (7.320-7.450) POC ABG pO2 (83-108) mmHg ABG Sodium (136.0-145.0) mmol/L ABG Potassium (3.40-4.50) mmol/L ABG Chloride (98-107) mmol/L ABG Glucose (65-95) mg/dL Chloride (98-107) mmol/L Carbon Dioxide (22-30) mmol/L BUN (9-20) mg/dL Creatinine (0.8-1.3) mg/dL Glucose (75-100) mg/dL POC Glucose 172 H 176 H (70-105) mg/dL C-Reactive Protein (0.00-1.30) mg/dL Arterial Blood Glucose (65-95) mg/dL 06/22/20 06/22/20 06/22/20 Range/Units 14:37 17:00 17:40 WBC (4.5-11.0) K/mm3 Hgb (11.8-15.2) gm/dl Hct (35.5-45.6) % Seg Neuts % (Manual) (40.0-70.0) % Lymphocytes % (Manual) (13.4-35.0) % Nucleated RBC % (0.0-0.9) % Seg Neutrophils # Man (1.8-7.7) K/mm3 Lymphocytes # (Manual) (1.2-5.4) K/mm3 Monocytes # (Manual) (0.0-0.8) K/mm3 Heparin Anti-Xa Level 1.32 H (0.3-0.7) U.I./ml ABG pH (7.320-7.450) POC ABG pO2 (83-108) mmHg ABG Sodium (136.0-145.0) mmol/L ABG Potassium (3.40-4.50) mmol/L ABG Chloride (98-107) mmol/L ABG Glucose (65-95) mg/dL Chloride (98-107) mmol/L Carbon Dioxide (22-30) mmol/L BUN (9-20) mg/dL Creatinine (0.8-1.3) mg/dL Glucose (75-100) mg/dL POC Glucose 171 H (70-105) mg/dL C-Reactive Protein 5.30 H (0.00-1.30) mg/dL Arterial Blood Glucose (65-95) mg/dL 06/22/20 06/23/20 06/23/20 Range/Units 23:36 02:13 02:41 WBC (4.5-11.0) K/mm3 Hgb (11.8-15.2) gm/dl Hct (35.5-45.6) % Seg Neuts % (Manual) (40.0-70.0) % Lymphocytes % (Manual) (13.4-35.0) % Nucleated RBC % (0.0-0.9) % Seg Neutrophils # Man (1.8-7.7) K/mm3 Lymphocytes # (Manual) (1.2-5.4) K/mm3 Monocytes # (Manual) (0.0-0.8) K/mm3 Heparin Anti-Xa Level 0.21 L (0.3-0.7) U.I./ml ABG pH 7.318 L (7.320-7.450) POC ABG pO2 157.5 H (83-108) mmHg ABG Sodium 135.6 L (136.0-145.0) mmol/L ABG Potassium 4.6 H (3.40-4.50) mmol/L ABG Chloride 110.0 H (98-107) mmol/L ABG Glucose 169 H (65-95) mg/dL Chloride (98-107) mmol/L Carbon Dioxide (22-30) mmol/L BUN (9-20) mg/dL Creatinine (0.8-1.3) mg/dL Glucose (75-100) mg/dL POC Glucose 155 H (70-105) mg/dL C-Reactive Protein (0.00-1.30) mg/dL Arterial Blood Glucose 169 H (65-95) mg/dL 06/23/20 06/23/20 06/23/20 Range/Units 04:00 04:00 05:24 WBC 27.4 H (4.5-11.0) K/mm3 Hgb 11.3 L (11.8-15.2) gm/dl Hct 33.8 L (35.5-45.6) % Seg Neuts % (Manual) 93.0 H (40.0-70.0) % Lymphocytes % (Manual) 1.0 L (13.4-35.0) % Nucleated RBC % 1.0 H (0.0-0.9) % Seg Neutrophils # Man 25.5 H (1.8-7.7) K/mm3 Lymphocytes # (Manual) 0.3 L (1.2-5.4) K/mm3 Monocytes # (Manual) 1.1 H (0.0-0.8) K/mm3 Heparin Anti-Xa Level (0.3-0.7) U.I./ml ABG pH (7.320-7.450) POC ABG pO2 (83-108) mmHg ABG Sodium (136.0-145.0) mmol/L ABG Potassium (3.40-4.50) mmol/L ABG Chloride (98-107) mmol/L ABG Glucose (65-95) mg/dL Chloride 107.6 H (98-107) mmol/L Carbon Dioxide 20 L (22-30) mmol/L BUN 100 H (9-20) mg/dL Creatinine 4.7 H (0.8-1.3) mg/dL Glucose 168 H (75-100) mg/dL POC Glucose 151 H (70-105) mg/dL C-Reactive Protein (0.00-1.30) mg/dL Arterial Blood Glucose (65-95) mg/dL HEART Score - HEART Score Troponin: Troponin T < 0.010 ng/mL (0.00-0.029) 06/17/20 12:33
[2020-06-23] MEDS ORDERED: DOCUSATE SODIUM 100 MG CAP PO SCH (15:00)
[2020-06-23] MEDS: POLYETHYLENE GLYCOL 3350 17 GM POWDER PO SCH (15:53)
[2020-06-23] MEDS: DOCUSATE SODIUM 100 MG/10 ML ORAL LIQD FEEDTUBE SCH ×2 (15:53→22:00)
--- NOTE | 2020-06-23 17:08 | Progress Note ---
Assessment and Plan - Patient Problems (1) Acute renal failure Current Visit: Yes Status: Acute Plan to address problem: Acute kidney failure Covid as stated nephropathy -prerenal azotemia versus acute tubular necrosis. Kidney function is worsening. Patient has developed hyperkalemia, refractory acidosis and worsening azotemia. Hemodialysis initia [place] on June 22. Patient tolerated treatment yesterday. Today's treatment was cut short by 15 minutes due to tachycardia. Will reevaluate in the morning and proceed with dialysis if hemodynamically stable. (2) Severe sepsis with septic shock Current Visit: Yes Status: Acute Plan to address problem: Continue antibiotics per infectious disease food consultant appropriately adjusted to the degree of renal function. (3) Hyperkalemia Current Visit: Yes Status: Acute Plan to address problem: Hemodialysis and then reevaluate in the morning (4) Metabolic acidosis Current Visit: Yes Status: Acute Plan to address problem: Acidosis improving with dialysis. Dialyze again in the morning and reevaluate (5) Acute respiratory failure with hypoxia Current Visit: Yes Status: Acute Plan to address problem: Continue respiratory management by pulmonary (6) Pneumonia due to COVID-19 virus Current Visit: Yes Status: Acute Plan to address problem: IV Dexamethasone Supplemental oxygen/Respiratory support as needed Proning as tolerated Remdesevir contra-indicated due to Kidney failure Prophylactic anticoagulation Trend inflammatory markers to assess disease progression and prognosis (7) Transaminitis Current Visit: Yes Status: Acute Plan to address problem: Hypoperfusion injury. Follow-up liver function test Subjective Date of service: 06/23/20 Principal diagnosis: ARF/Septic Shock/COVID-19 PNA, AF with RVR Interval history: Patient was not examined today due to the COVID-19 status to limit exposure of the consulting au pair and also for PPE preservation. I reviewed multidisciplinary notes and discussed with staff and physicians as needed. Patient is on 2 vasopressors. Dialysis was abbreviated by 15 minutes due to t achycardia. I discussed with the dialysis nurse. Objective - Exam Narrative Exam: Patient was not examined at the bedside today due to personal protective equipment preservation during the COVID-19 pandemic. Patient is on 2 pressors now - Vital Signs Vital signs: Vital Signs - 12hr 06/23/20 06/23/20 06/23/20 05:10 05:20 05:30 Temperature Pulse Rate 115 H 98 H 102 H Respiratory 30 H 28 H 32 H Rate Blood Pressure 98/50 107/57 104/68 O2 Sat by Pulse 96 97 97 Oximetry O2 Sat by Pulse Oximetry [ Anterior Bilateral Throughout] 06/23/20 06/23/20 06/23/20 05:40 05:50 06:00 Temperature Pulse Rate 98 H 94 H 102 H Respiratory 29 H 30 H 31 H Rate Blood Pressure 104/68 107/71 116/67 O2 Sat by Pulse 97 97 97 Oximetry O2 Sat by Pulse Oximetry [ Anterior Bilateral Throughout] 06/23/20 06/23/20 06/23/20 06:10 06:20 06:30 Temperature Pulse Rate 99 H 94 H 93 H Respiratory 30 H 30 H 32 H Rate Blood Pressure 116/67 121/59 109/64 O2 Sat by Pulse 97 96 96 Oximetry O2 Sat by Pulse Oximetry [ Anterior Bilateral Throughout] 06/23/20 06/23/20 06/23/20 06:40 06:50 07:00 Temperature Pulse Rate 102 H 95 H 101 H Respiratory 31 H 30 H 27 H Rate Blood Pressure 109/64 114/61 119/63 O2 Sat by Pulse 96 96 96 Oximetry O2 Sat by Pulse Oximetry [ Anterior Bilateral Throughout] 06/23/20 06/23/20 06/23/20 07:10 07:20 07:30 Temperature Pulse Rate 97 H 109 H 103 H Respiratory 30 H 31 H 31 H Rate Blood Pressure 119/63 124/59 115/60 O2 Sat by Pulse 96 96 96 Oximetry O2 Sat by Pulse Oximetry [ Anterior Bilateral Throughout] 06/23/20 06/23/20 06/23/20 07:40 07:47 07:50 Temperature 99.1 F Pulse Rate 97 H 95 H Respiratory 30 H 30 H Rate Blood Pressure 115/60 113/58 O2 Sat by Pulse 96 96 Oximetry O2 Sat by Pulse Oximetry [ Anterior Bilateral Throughout] 06/23/20 06/23/20 06/23/20 08:00 08:10 08:18 Temperature Pulse Rate 99 H 89 87 Respiratory 30 H 30 H Rate Blood Pressure 117/56 117/56 111/58 O2 Sat by Pulse 95 96 96 Oximetry O2 Sat by Pulse Oximetry [ Anterior Bilateral Throughout] 06/23/20 06/23/20 06/23/20 08:20 08:30 08:40 Temperature Pulse Rate 96 H 97 H 102 H Respiratory 28 H 30 H 30 H Rate Blood Pressure 111/58 98/50 98/50 O2 Sat by Pulse 96 93 94 Oximetry O2 Sat by Pulse Oximetry [ Anterior Bilateral Throughout] 06/23/20 06/23/20 06/23/20 08:50 09:00 09:10 Temperature Pulse Rate 100 H 102 H 96 H Respiratory 25 H 31 H 30 H Rate Blood Pressure 112/56 109/62 109/62 O2 Sat by Pulse 96 96 96 Oximetry O2 Sat by Pulse Oximetry [ Anterior Bilateral Throughout] 06/23/20 06/23/20 06/23/20 09:15 09:20 09:25 Temperature 99.1 F Pulse Rate 97 H 97 H 77 Respiratory 30 H 30 H Rate Blood Pressure 109/62 113/58 113/58 O2 Sat by Pulse 95 Oximetry O2 Sat by Pulse 94 Oximetry [ Anterior Bilateral Throughout] 06/23/20 06/23/20 06/23/20 09:30 09:40 09:45 Temperature Pulse Rate 103 H 99 H 96 H Respiratory 30 H 30 H Rate Blood Pressure 113/58 115/71 101/54 O2 Sat by Pulse 96 87 Oximetry O2 Sat by Pulse Oximetry [ Anterior Bilateral Throughout] 06/23/20 06/23/20 06/23/20 09:50 10:00 10:10 Temperature Pulse Rate 108 H 100 H 108 H Respiratory 30 H 31 H 31 H Rate Blood Pressure 101/54 96/51 96/51 O2 Sat by Pulse 94 94 93 Oximetry O2 Sat by Pulse Oximetry [ Anterior Bilateral Throughout] 06/23/20 06/23/20 06/23/20 10:15 10:20 10:30 Temperature Pulse Rate 101 H 116 H 112 H Respiratory 31 H 30 H Rate Blood Pressure 110/58 110/58 110/58 O2 Sat by Pulse 94 93 Oximetry O2 Sat by Pulse Oximetry [ Anterior Bilateral Throughout] 06/23/20 06/23/20 06/23/20 10:40 10:45 10:48 Temperature Pulse Rate 103 H 92 H 92 H Respiratory 30 H Rate Blood Pressure 92/53 84/54 100/61 O2 Sat by Pulse 91 Oximetry O2 Sat by Pulse Oximetry [ Anterior Bilateral Throughout] 06/23/20 06/23/20 06/23/20 10:50 11:00 11:10 Temperature Pulse Rate 107 H 115 H 129 H Respiratory 30 H 32 H 32 H Rate Blood Pressure 81/57 104/62 104/62 O2 Sat by Pulse 92 93 94 Oximetry O2 Sat by Pulse Oximetry [ Anterior Bilateral Throughout] 06/23/20 06/23/20 06/23/20 11:15 11:20 11:30 Temperature Pulse Rate 96 H 105 H 99 H Respiratory 30 H 28 H Rate Blood Pressure 98/65 98/65 93/60 O2 Sat by Pulse 94 95 Oximetry O2 Sat by Pulse Oximetry [ Anterior Bilateral Throughout] 06/23/20 06/23/20 06/23/20 11:40 11:45 11:50 Temperature Pulse Rate 101 H 97 H 118 H Respiratory 31 H 33 H Rate Blood Pressure 93/60 106/55 106/55 O2 Sat by Pulse 94 94 Oximetry O2 Sat by Pulse Oximetry [ Anterior Bilateral Throughout] 06/23/20 06/23/20 06/23/20 12:00 12:04 12:10 Temperature 98.6 F Pulse Rate 120 H 128 H 110 H Respiratory 28 H 27 H Rate Blood Pressure 106/55 88/46 85/54 O2 Sat by Pulse 94 96 Oximetry O2 Sat by Pulse Oximetry [ Anterior Bilateral Throughout] 06/23/20 06/23/20 06/23/20 12:15 12:20 12:25 Temperature Pulse Rate 142 H 93 H 99 H Respiratory 30 H 30 H Rate Blood Pressure 85/54 130/54 130/54 O2 Sat by Pulse 98 Oximetry O2 Sat by Pulse 94 Oximetry [ Anterior Bilateral Throughout] 06/23/20 06/23/20 06/23/20 12:30 12:40 12:50 Temperature Pulse Rate 100 H 94 H 106 H Respiratory 30 H 30 H 30 H Rate Blood Pressure 130/59 130/59 126/68 O2 Sat by Pulse 97 96 96 Oximetry O2 Sat by Pulse Oximetry [ Anterior Bilateral Throughout] 06/23/20 06/23/20 06/23/20 13:00 13:10 13:20 Temperature Pulse Rate 102 H 113 H 98 H Respiratory 30 H 30 H 30 H Rate Blood Pressure 123/65 123/65 116/66 O2 Sat by Pulse 96 96 96 Oximetry O2 Sat by Pulse Oximetry [ Anterior Bilateral Throughout] 06/23/20 06/23/20 06/23/20 13:30 13:40 13:50 Temperature Pulse Rate 101 H 128 H 104 H Respiratory 30 H 31 H 29 H Rate Blood Pressure 104/51 104/51 111/73 O2 Sat by Pulse 94 93 94 Oximetry O2 Sat by Pulse Oximetry [ Anterior Bilateral Throughout] 06/23/20 06/23/20 06/23/20 14:00 14:10 14:20 Temperature Pulse Rate 100 H 100 H 109 H Respiratory 32 H 30 H 30 H Rate Blood Pressure 111/73 114/68 124/67 O2 Sat by Pulse 95 95 94 Oximetry O2 Sat by Pulse Oximetry [ Anterior Bilateral Throughout] 06/23/20 06/23/20 06/23/20 14:30 14:40 14:50 Temperature Pulse Rate 95 H 94 H 100 H Respiratory 30 H 30 H 31 H Rate Blood Pressure 132/69 124/67 127/68 O2 Sat by Pulse 95 95 95 Oximetry O2 Sat by Pulse Oximetry [ Anterior Bilateral Throughout] 06/23/20 06/23/20 06/23/20 15:00 15:30 15:37 Temperature 98.9 F Pulse Rate 90 98 H Respiratory 30 H Rate Blood Pressure 122/73 130/63 O2 Sat by Pulse 95 95 Oximetry O2 Sat by Pulse Oximetry [ Anterior Bilateral Throughout] - Lab 06/23/20 04:00 06/23/20 04:00 Most recent lab results ABG pH 7.318 (7.320-7.450) L 06/23/20 02:41 Calcium 8.5 mg/dL (8.4-10.2) D 06/23/20 04:00 Magnesium 2.70 mg/dL (1.7-2.3) H 06/18/20 20:33 Urine Creatinine 192.4 mg/dL (0.1-20.0) H 06/18/20 15:00 Urine Sodium 28 mmol/L 06/18/20 15:00 Medications & Allergies - Medications Allergies/Adverse Reactions: Allergies No Known Allergies Allergy (Unverified 06/17/20 14:24) Home Medications: Home Medications Medication Instructions Recorded Confirmed Last Taken Type Losartan/Hydrochlorothiazide 1 each PO QDAY 06/19/20 06/19/20 Unknown History [Losartan-Hctz 100-25 mg Tab] amLODIPine [Norvasc] 5 mg PO DAILY 06/19/20 06/19/20 Unknown History Active Medications: Generic Name Dose Route Start Last Admin Trade Name Freq PRN Reason Stop Dose Admin Acetaminophen 650 mg 06/17/20 14:17 06/19/20 06:42 Acetaminophen 325 Mg Tab PO 650 mg Q4H PRN Administration Pain MILD(1-3)/Fever >100.5/ROBERTS Lipase/Protease/Amylase 1 each 06/19/20 12:15 Lipase 10,500/Protease 25,000/Amylase 43,750 (Units) Dr Cap FEEDTUBE PRN PRN For Clogged Feeding Tube Ascorbic Acid 250 mg 06/17/20 22:00 06/23/20 09:18 Ascorbic Acid 250 Mg Tab PO 250 mg BID CONNOR Administration Cholecalciferol 1,000 unit 06/18/20 10:00 06/23/20 09:15 Cholecalciferol (Vit D3) 1000 Unit (25 Mcg) Tab PO 1,000 unit DAILY CONNOR Administration Dexamethasone 6 mg 06/18/20 22:00 06/23/20 09:15 Dexamethasone 4 Mg/Ml Vial IV 06/28/20 10:01 6 mg Q12HR CONNOR Administration Docusate Sodium 100 mg 06/23/20 15:00 06/23/20 15:53 Docusate Sodium 100 Mg/10 Ml Oral Liqd FEEDTUBE 100 mg BID CONNOR Administration Famotidine 20 mg 06/20/20 11:00 06/23/20 09:15 Famotidine 20 Mg/2 Ml Inj IV 20 mg DAILY CONNOR Administration Fentanyl 50 mcg 06/18/20 01:02 06/18/20 01:22 Fentanyl 100 Mcg/2 Ml Inj IV 50 mcg Q10MIN PRN Administration ANALGESIA Furosemide 80 mg 06/21/20 16:00 06/23/20 06:10 Furosemide 40 Mg/4 Ml Inj IV 80 mg 0600,1800 CONNOR Administration Heparin Sodium (Porcine) 4,500 unit 06/19/20 11:34 06/19/20 12:37 Heparin 10,000 Units/10 Ml Vial 40 unit/kg (4500 unit) 4,500 unit IV Administration Q6H PRN Anti-Xa Assay < 0.1 units/ml Heparin Sodium (Porcine) 5,000 unit 06/22/20 12:53 Heparin 10,000 Unit/1 Ml Vial IV PAM PRN hemodialysis Hydrophilic Ointment 1 applic 06/17/20 22:52 Lip Therapy Vaseline TP Q2HR PRN Dry Lips Norepinephrine 4 mg in 250 mls @ 7.5 mls/hr 06/18/20 00:00 06/23/20 12:24 Levophed Drip 4 Mg/Ns 250 Ml IV 4 mcg/min TITR CONNOR 15 mls/hr Administration Protocol 2 MCG/MIN Propofol 1,000 mg in 100 mls @ 3.402 mls/hr 06/18/20 01:00 06/23/20 09:12 Diprivan 10 Mg/Ml IV 15 mcg/kg/min TITR CONNOR 10.206 mls/hr Administration Protocol 5 MCG/KG/MIN Fentanyl Citrate 2,000 mcg in 100 mls @ 5.67 mls/hr 06/18/20 02:00 06/23/20 13:24 Fentanyl Drip Premix IV 4 mcg/kg/hr TITR CONNOR 22.68 mls/hr Administration Protocol 1 MCG/KG/HR Vasopressin 20 unit/ Sodium 101 mls @ 9.09 mls/hr 06/18/20 10:00 06/23/20 16:08 Chloride IV 0.03 units/min TITR CONNOR 9.09 mls/hr Administration Protocol 0.03 UNITS/MIN Sodium Chloride 500 mls @ 1 mls/hr 06/18/20 09:38 06/19/20 21:37 Nacl 0.9% 500 Ml IV 0 mls/hr DIRECT PRN Infusion ARTERIAL LINE FLUSH Dextrose/Sodium Chloride 1,000 mls @ 30 mls/hr 06/18/20 12:00 06/21/20 19:16 D5ns IV Infused DIRECT CONNOR Infusion Heparin Sodium/Sodium Chloride 25,000 unit in 500 mls @ 30 mls/hr 06/19/20 12:00 06/23/20 13:24 Heparin/ 0.45% Nacl-25,000 Unit/500 Ml IV 1,200 units/hr TITR CONNOR 24 mls/hr Administration Protocol 1,500 UNITS/HR Cefepime HCl 2 gm in 100 mls @ 200 mls/hr 06/21/20 10:00 06/23/20 09:16 Cefepime/Ns 2 Gm/100 Ml IV 06/27/20 10:29 200 mls/hr Q24HR CONNOR Administration Protocol Sodium Chloride 100 mls @ 999 mls/hr 06/22/20 12:53 Nacl 0.9% IV PAM PRN Hypotension Insulin Human Regular 0 units 06/18/20 12:00 06/23/20 13:26 Insulin Regular, Human 100 Units/1 Ml SUB-Q Not Given Q6HR [facility] Protocol Lorazepam 1 mg 06/17/20 17:05 06/17/20 17:10 Lorazepam 2 Mg/Ml Vial IV 1 mg BID PRN Administration Anxiety Metoclopramide HCl 5 mg 06/22/20 13:00 06/23/20 12:24 Metoclopramide 10 Mg/2 Ml Inj IV 5 mg Q6H CONNOR Administration Multi-Ingred Cream/Lotion/Oil/Oint 1 applic 06/17/20 22:52 Mineral Oil/Petrolatum, White Ophth Oint 3.5 Gm OU Q4HR PRN Dry Eye(s) Ondansetron HCl 4 mg 06/17/20 14:17 Ondansetron 4 Mg/2 Ml Inj IV Q8H PRN Nausea And Vomiting Polyethylene Glycol 17 gm 06/23/20 15:00 06/23/20 15:53 Polyethylene Glycol 3350 17 Gm Powder PO 17 gm QDAY CONNOR Administration Simple Syrup 15 ml 06/19/20 12:15 Simple Syrup 15 Ml FEEDTUBE PRN PRN Hypoglycemia Simple Syrup 30 ml 06/19/20 12:15 Simple Syrup 15 Ml FEEDTUBE PRN PRN Hypoglycemia Sodium Bicarbonate 325 mg 06/19/20 12:15 Sodium Bicarbonate 325 Mg Tab FEEDTUBE PRN PRN For Clogged Feeding Tube Sodium Chloride 10 ml 06/17/20 22:00 06/23/20 09:17 Sodium Chloride 0.9% 10 Ml Flush Syringe IV 10 ml BID CONNOR Administration Sodium Chloride 10 ml 06/17/20 14:17 Sodium Chloride 0.9% 10 Ml Flush Syringe IV PRN PRN LINE FLUSH Zinc Sulfate 220 mg 06/17/20 22:00 06/23/20 09:15 Zinc Sulfate 220 Mg Cap PO 220 mg BID CONNOR Administration
[2020-06-24] MEDS: INSULIN REGULAR, HUMAN 100 UNITS/1 ML SUB-Q SCH ×5 (00:14→18:29)
[2020-06-24] MEDS: fentaNYL DRIP Premix 2,000 MCG/100 ML BAG IV SCH ×5 (00:31→22:23)
[2020-06-24] MEDS: METOCLOPRAMIDE 10 MG/2 ML INJ IV SCH ×4 (00:32→18:03)
[2020-06-24] MEDS: VASOPRESSIN 20 UNIT in SODIUM CHLORIDE 0.9% 100 ML IV SCH ×2 (02:15→13:40)
--- NOTE | 2020-06-24 03:48 | XRay Report ---
CHEST 1 VIEW 06/24/2020 1:48 AM INDICATION / CLINICAL INFORMATION: follow up respiratory failure. COMPARISON: 06/23/20 FINDINGS: SUPPORT DEVICES: Unchanged. HEART / MEDIASTINUM: Stable. LUNGS / PLEURA: Bilateral pulmonary opacities, left greater than right, appear stable. No pneumothora x. ADDITIONAL FINDINGS: No significant additional findings. IMPRESSION: 1. No significant change. Signer Name: Katie Pringle MD Signed: 06/24/2020 3:44 AM Workstation Name: [id number]
[2020-06-24] MEDS: NORepinephrine/NS 4 MG-250 ML 4 MG/250 ML BAG IV SCH (04:02)
[2020-06-24] MEDS: FUROSEMIDE 40 MG/4 ML INJ IV SCH (05:41)
[2020-06-24 07:29] LABS: Hematocrit 32.6 % (35.5-45.6); Hemoglobin 10.9 gm/dl (11.8-15.2); Mean Corpuscular HGB Conc 34 % (32-34); Mean Corpuscular Volume 87 fl (84-94); Platelet Count 194 K/mm3 (140-440); Red Blood Count 3.73 M/mm3 (3.65-5.03); Red Cell Distribution Width 14.8 % (13.2-15.2)
[2020-06-24 07:42] LABS: Calcium 7.6 mg/dL (8.4-10.2)
[2020-06-24 07:44] LABS: Basophils % (Auto) 0.1 % (0.0-1.8); Lymphocytes # (Auto) 0.7 K/mm3 (1.2-5.4); Monocytes # (Auto) 1.2 K/mm3 (0.0-0.8); Monocytes % (Auto) 3.6 % (0.0-7.3)
[2020-06-24] MEDS: HEPARIN/ 0.45% NACL DRIP 25,000 UNIT/500 ML BAG IV SCH (08:04)
--- NOTE | 2020-06-24 09:00 | Progress Note ---
Assessment and Plan - Patient Problems (1) Acute renal failure Current Visit: Yes Status: Acute Plan to address problem: Acute kidney failure Covid as stated nephropathy -prerenal azotemia versus acute tubular necrosis. Kidney function worsening and patient developed hyperkalemia, refractory acidosis and worsening azotemia. Hemodialysis initiated on June 22. Patient tolerated treatment June 22. On June 23, treatment was cut short by 15 minutes due to tachycardia. Hemodynamic status is not significantly changed. Will attempt dialysis again today. I will habematolel back with family tomorrow and see about their long-term goals. They had indicated and patient would not like to be on chronic life support. Patient with multisystem organ failure and does not appear to be making significant progress. (2) Severe sepsis with septic shock Current Visit: Yes Status: Acute Plan to address problem: Continue antibiotics per infectious disease network systems consultant appropriately adjusted to the degree of renal function. (3) Hyperkalemia Current Visit: Yes Status: Acute Plan to address problem: Hemodialysis and then reevaluate in the morning (4) Metabolic acidosis Current Visit: Yes Status: Acute Plan to address problem: Acidosis improving with dialysis. Dialyze again today and reevaluate (5) Acute respiratory failure with hypoxia Current Visit: Yes Status: Acute Plan to address problem: Continue respiratory management by pulmonary (6) Pneumonia due to COVID-19 virus Current Visit: Yes Status: Acute Plan to address problem: IV Dexamethasone Supplemental oxygen/Respiratory support as needed Proning as tolerated Remdesevir contra-indicated due to Kidney failure Prophylactic anticoagulation Trend inflammatory markers to assess disease progression and prognosis (7) Transaminitis Current Visit: Yes Status: Acute Plan to address problem: Hypoperfusion injury. Follow-up liver function test Subjective Date of service: 06/24/20 Principal diagnosis: ARF/Septic Shock/COVID-19 PNA, AF with RVR Interval history: Patient was not examined today due to the COVID-19 status to limit exposure of the consulting substance abuse prevention coordinator and also for PPE preservation. I reviewed multid isciplinary notes and discussed with staff and physicians as needed. Patient is still on 2 vasopressors -Levophed and vasopressin he is sedated on propofol and fentanyl. He is on anticoagulation with intravenous heparin. Dialysis was abbreviated yesterday by 15 minutes due to tachycardia. Will attempt dialysis again today Objective - Exam Narrative Exam: Patient was not examined at the bedside today due to personal protective equipment preservation during the COVID-19 pandemic. Patient is on 2 pressors now - Vital Signs Vital signs: Vital Signs - 12hr 06/23/20 06/23/20 06/23/20 21:00 21:10 21:20 Temperature Pulse Rate 99 H 109 H 119 H Pulse Rate [ From Monitor] Respiratory 31 H 21 30 H Rate Blood Pressure 130/71 130/71 102/57 O2 Sat by Pulse 94 91 91 Oximetry 06/23/20 06/23/20 06/23/20 21:30 21:40 21:50 Temperature Pulse Rate 98 H 102 H 109 H Pulse Rate [ From Monitor] Respiratory 29 H 30 H 31 H Rate Blood Pressure 111/57 111/57 111/63 O2 Sat by Pulse 92 94 93 Oximetry 06/23/20 06/23/20 06/23/20 22:00 22:10 22:20 Temperature Pulse Rate 96 H 104 H 112 H Pulse Rate [ From Monitor] Respiratory 30 H 29 H 25 H Rate Blood Pressure 116/61 116/61 110/60 O2 Sat by Pulse 92 92 92 Oximetry 06/23/20 06/23/20 06/23/20 22:30 22:40 22:50 Temperature Pulse Rate 125 H 121 H 128 H Pulse Rate [ From Monitor] Respiratory 29 H 32 H 31 H Rate Blood Pressure 110/60 90/50 89/51 O2 Sat by Pulse 91 91 92 Oximetry 06/23/20 06/23/20 06/23/20 23:00 23:10 23:16 Temperature Pulse Rate 130 H 111 H 112 H Pulse Rate [ From Monitor] Respiratory 30 H 30 H 28 H Rate Blood Pressure 80/56 177/79 103/59 O2 Sat by Pulse 92 93 92 Oximetry 06/23/20 06/23/20 06/23/20 23:20 23:25 23:30 Temperature Pulse Rate 88 104 H 106 H Pulse Rate [ From Monitor] Respiratory 26 H 34 H Rate Blood Pressure 103/59 103/59 108/67 O2 Sat by Pulse 92 92 92 Oximetry 06/23/20 06/23/20 06/24/20 23:40 23:50 00:00 Temperature 98.1 F Pulse Rate 101 H 109 H 117 H Pulse Rate [ From Monitor] Respiratory 34 H 30 H 30 H Rate Blood Pressure 108/67 104/64 109/61 O2 Sat by Pulse 93 93 92 Oximetry 06/24/20 06/24/2021 00:10 00:20 00:30 Temperature Pulse Rate 101 H 99 H 114 H Pulse Rate [ From Monitor] Respiratory 32 H 33 H 31 H Rate Blood Pressure 109/61 101/60 111/63 O2 Sat by Pulse 93 94 93 Oximetry 06/24/20 06/24/20 06/24/20 00:40 00:50 01:00 Temperature Pulse Rate 111 H 112 H 96 H Pulse Rate [ From Monitor] Respiratory 31 H 32 H 33 H Rate Blood Pressure 111/63 118/57 105/56 O2 Sat by Pulse 93 93 93 Oximetry 06/24/20 06/24/20 06/24/20 01:10 01:20 01:30 Temperature Pulse Rate 113 H 108 H 101 H Pulse Rate [ From Monitor] Respiratory 28 H 27 H 31 H Rate Blood Pressure 105/56 113/58 116/62 O2 Sat by Pulse 93 93 93 Oximetry 06/24/20 06/24/20 06/24/20 01:40 01:50 02:00 Temperature Pulse Rate 102 H 108 H 112 H Pulse Rate [ From Monitor] Respiratory 29 H 30 H 30 H Rate Blood Pressure 116/62 112/58 115/52 O2 Sat by Pulse 94 92 91 Oximetry 06/24/20 06/24/20 06/24/20 02:10 02:20 02:30 Temperature Pulse Rate 103 H 108 H 108 H Pulse Rate [ From Monitor] Respiratory 30 H 30 H 30 H Rate Blood Pressure 115/52 103/54 112/64 O2 Sat by Pulse 92 92 92 Oximetry 06/24/20 06/24/20 06/24/20 02:40 02:50 03:00 Temperature Pulse Rate 110 H 107 H 112 H Pulse Rate [ From Monitor] Respiratory 30 H 31 H 28 H Rate Blood Pressure 112/64 112/52 111/54 O2 Sat by Pulse 94 92 92 Oximetry 06/24/20 06/24/20 06/24/20 03:10 03:20 03:30 Temperature Pulse Rate 109 H 104 H 94 H Pulse Rate [ From Monitor] Respiratory 33 H 26 H 30 H Rate Blood Pressure 111/54 116/61 113/61 O2 Sat by Pulse 92 93 94 Oximetry 06/24/20 06/24/20 06/24/20 03:31 03:40 03:50 Temperature Pulse Rate 104 H 107 H 126 H Pulse Rate [ From Monitor] Respiratory 28 H 25 H Rate Blood Pressure 116/61 113/61 99/52 O2 Sat by Pulse 93 93 92 Oximetry 06/24/20 06/24/20 06/24/20 04:00 04:10 04:20 Temperature Pulse Rate 91 H 104 H 96 H Pulse Rate [ From Monitor] Respiratory 30 H 30 H 30 H Rate Blood Pressure 113/61 110/63 110/63 O2 Sat by Pulse 93 93 93 Oximetry 06/24/20 06/24/20 06/24/20 04:30 04:40 04:50 Temperature Pulse Rate 120 H 105 H 105 H Pulse Rate [ From Monitor] Respiratory 28 H 30 H 30 H Rate Blood Pressure 110/63 100/53 100/66 O2 Sat by Pulse 89 92 94 Oximetry 06/24/20 06/24/20 06/24/20 05:00 05:10 05:20 Temperature Pulse Rate 100 H 102 H 108 H Pulse Rate [ From Monitor] Respiratory 30 H 31 H 30 H Rate Blood Pressure 93/69 93/69 119/69 O2 Sat by Pulse 94 92 92 Oximetry 06/24/20 06/24/20 06/24/20 05:30 05:40 05:50 Temperature Pulse Rate 104 H 104 H 89 Pulse Rate [ From Monitor] Respiratory 25 H 30 H 28 H Rate Blood Pressure 120/63 120/63 127/66 O2 Sat by Pulse 92 93 93 Oximetry 06/24/20 06/24/20 06/24/20 06:00 06:10 06:20 Temperature Pulse Rate 107 H 107 H 97 H Pulse Rate [ From Monitor] Respiratory 30 H 28 H 28 H Rate Blood Pressure 127/66 117/54 123/63 O2 Sat by Pulse 92 93 93 Oximetry 06/24/20 06/24/20 06/24/20 06:30 06:40 06:50 Temperature Pulse Rate 117 H 112 H 105 H Pulse Rate [ From Monitor] Respiratory 22 30 H 23 Rate Blood Pressure 123/63 100/56 112/63 O2 Sat by Pulse 90 93 93 Oximetry 06/24/20 06/24/20 06/24/20 07:00 07:10 07:20 Temperature 98.7 F Pulse Rate 115 H 111 H 97 H Pulse Rate [ From Monitor] Respiratory 30 H 28 H 17 Rate Blood Pressure 122/67 122/67 117/64 O2 Sat by Pulse 92 92 94 Oximetry 0206/24/20 06/24/20 07:30 07:40 07:50 Temperature Pulse Rate 97 H 103 H 103 H Pulse Rate [ From Monitor] Respiratory 23 30 H 27 H Rate Blood Pressure 113/61 113/61 102/66 O2 Sat by Pulse 93 93 94 Oximetry 06/24/20 06/24/20 06/24/20 08:00 08:10 08:20 Temperature Pulse Rate 95 H 114 H 135 H Pulse Rate [ 89 From Monitor] Respiratory 29 H 26 H 30 H Rate Blood Pressure 103/70 103/70 109/58 O2 Sat by Pulse 93 93 91 Oximetry 06/24/20 08:30 Temperature Pulse Rate 121 H Pulse Rate [ From Monitor] Respiratory 30 H Rate Blood Pressure 122/58 O2 Sat by Pulse 92 Oximetry - Lab 06/24/20 06:30 06/24/20 07:03 Most recent lab results ABG pH 7.335 (7.320-7.450) 06/24/20 04:41 Calcium 7.6 mg/dL (8.4-10.2) L 06/24/20 07:03 Magnesium 2.70 mg/dL (1.7-2.3) H 06/18/20 20:33 Urine Creatinine 192.4 mg/dL (0.1-20.0) H 06/18/20 15:00 Urine Sodium 28 mmol/L 06/18/20 15:00 Medications & Allergies - Medications Allergies/Adverse Reactions: Allergies No Known Allergies Allergy (Unverified 06/17/20 14:24) Home Medications: Home Medications Medication Instructions Recorded Confirmed Last Taken Type Losartan/Hydrochlorothiazide 1 each PO QDAY 06/19/20 06/19/20 Unknown History [Losartan-Hctz 100-25 mg Tab] amLODIPine [Norvasc] 5 mg PO DAILY 06/19/20 06/19/20 Unknown History Active Medications: Generic Name Dose Route Start Last Admin Trade Name Freq PRN Reason Stop Dose Admin Acetaminophen 650 mg 06/17/20 14:17 06/19/20 06:42 Acetaminophen 325 Mg Tab PO 650 mg Q4H PRN Administration Pain MILD(1-3)/Fever >100.5/ROBERTS Lipase/Protease/Amylase 1 each 06/19/20 12:15 Lipase 10,500/Protease 25,000/Amylase 43,750 (Units) Dr Cap FEEDTUBE PRN PRN For Clogged Feeding Tube Ascorbic Acid 250 mg 06/17/20 22:00 06/23/20 22:00 Ascorbic Acid 250 Mg Tab PO 250 mg BID CONNOR Administration Cholecalciferol 1,000 unit 06/18/20 10:00 06/23/20 09:15 Cholecalciferol (Vit D3) 1000 Unit (25 Mcg) Tab PO 1,000 unit DAILY CONNOR Administration Dexamethasone 6 mg 06/18/20 22:00 06/23/20 22:00 Dexamethasone 4 Mg/Ml Vial IV 06/28/20 10:01 6 mg Q12HR CONNOR Administration Docusate Sodium 100 mg 06/23/20 15:00 06/23/20 22:00 Docusate Sodium 100 Mg/10 Ml Oral Liqd FEEDTUBE Not Given BID CONNOR Famotidine 20 mg 06/20/20 11:00 06/23/20 09:15 Famotidine 20 Mg/2 Ml Inj IV 20 mg DAILY CONNOR Administration Fentanyl 50 mcg 06/18/20 01:02 06/18/20 01:22 Fentanyl 100 Mcg/2 Ml Inj IV 50 mcg Q10MIN PRN Administration ANALGESIA Furosemide 80 mg 06/21/20 16:00 06/24/20 05:41 Furosemide 40 Mg/4 Ml Inj IV 80 mg 0600,1800 CONNOR Administration Heparin Sodium (Porcine) 4,500 unit 06/19/20 11:34 06/19/20 12:37 Heparin 10,000 Units/10 Ml Vial 40 unit/kg (4500 unit) 4,500 unit IV Administration Q6H PRN Anti-Xa Assay < 0.1 units/ml Heparin Sodium (Porcine) 5,000 unit 06/22/20 12:53 Heparin 10,000 Unit/1 Ml Vial IV PAM PRN hemodialysis Hydrophilic Ointment 1 applic 06/17/20 22:52 Lip Therapy Vaseline TP Q2HR PRN Dry Lips Norepinephrine 4 mg in 250 mls @ 7.5 mls/hr 06/18/20 00:00 06/24/20 08:16 Levophed Drip 4 Mg/Ns 250 Ml IV 2 mcg/min TITR CONNOR 7.5 mls/hr Titration Protocol 2 MCG/MIN Propofol 1,000 mg in 100 mls @ 3.402 mls/hr 06/18/20 01:00 06/24/20 08:05 Diprivan 10 Mg/Ml IV 15 mcg/kg/min TITR CONNOR 10.206 mls/hr Administration Protocol 5 MCG/KG/MIN Fentanyl Citrate 2,000 mcg in 100 mls @ 5.67 mls/hr 06/18/20 02:00 06/24/20 08:04 Fentanyl Drip Premix IV 4 mcg/kg/hr TITR CONNOR 22.68 mls/hr Administration Protocol 1 MCG/KG/HR Vasopressin 20 unit/ Sodium 101 mls @ 9.09 mls/hr 06/18/20 10:00 06/24/20 02:15 Chloride IV 0.03 units/min TITR CONNOR 9.09 mls/hr Administration Protocol 0.03 UNITS/MIN Sodium Chloride 500 mls @ 1 mls/hr 06/18/20 09:38 06/19/20 21:37 Nacl 0.9% 500 Ml IV 0 mls/hr DIRECT PRN Infusion ARTERIAL LINE FLUSH Dextrose/Sodium Chloride 1,000 mls @ 30 mls/hr 06/18/20 12:00 06/21/20 19:16 D5ns IV Infused DIRECT CONNOR Infusion Heparin Sodium/Sodium Chloride 25,000 unit in 500 mls @ 30 mls/hr 06/19/20 12:00 06/24/20 08:04 Heparin/ 0.45% Nacl-25,000 Unit/500 Ml IV 1,200 units/hr TITR CONNOR 24 mls/hr Administration Protocol 1,500 UNITS/HR Cefepime HCl 2 gm in 100 mls @ 200 mls/hr 06/21/20 10:00 06/23/20 09:16 Cefepime/Ns 2 Gm/100 Ml IV 06/27/20 10:29 200 mls/hr Q24HR [facility] Administration Protocol Sodium Chloride 100 mls @ 999 mls/hr 06/22/20 12:53 Nacl 0.9% IV PAM PRN Hypotension Insulin Human Regular 0 units 06/18/20 12:00 06/24/20 05:58 Insulin Regular, Human 100 Units/1 Ml SUB-Q Not Given Q6HR [facility] Protocol Lorazepam 1 mg 06/17/20 17:05 06/17/20 17:10 Lorazepam 2 Mg/Ml Vial IV 1 mg BID PRN Administration Anxiety Metoclopramide HCl 5 mg 06/22/20 13:00 06/24/20 00:32 Metoclopramide 10 Mg/2 Ml Inj IV 5 mg Q6H [facility] Administration Multi-Ingred Cream/Lotion/Oil/Oint 1 applic 06/17/20 22:52 Mineral Oil/Petrolatum, White Ophth Oint 3.5 Gm OU Q4HR PRN Dry Eye(s) Ondansetron HCl 4 mg 06/17/20 14:17 Ondansetron 4 Mg/2 Ml Inj IV Q8H PRN Nausea And Vomiting Polyethylene Glycol 17 gm 06/23/20 15:00 06/23/20 15:53 Polyethylene Glycol 3350 17 Gm Powder PO 17 gm QDAY [facility] Administration Simple Syrup 15 ml 06/19/20 12:15 Simple Syrup 15 Ml FEEDTUBE PRN PRN Hypoglycemia Simple Syrup 30 ml 06/19/20 12:15 Simple Syrup 15 Ml FEEDTUBE PRN PRN Hypoglycemia Sodium Bicarbonate 325 mg 06/19/20 12:15 Sodium Bicarbonate 325 Mg Tab FEEDTUBE PRN PRN For Clogged Feeding Tube Sodium Chloride 10 ml 06/17/20 22:00 06/23/20 22:00 Sodium Chloride 0.9% 10 Ml Flush Syringe IV 10 ml BID CONNOR Administration Sodium Chloride 10 ml 06/17/20 14:17 Sodium Chloride 0.9% 10 Ml Flush Syringe IV PRN PRN LINE FLUSH Zinc Sulfate 220 mg 06/17/20 22:00 06/23/20 22:00 Zinc Sulfate 220 Mg Cap PO 220 mg BID CONNOR Administration
[2020-06-24] MEDS: dexAMETHasone 4 MG/ML VIAL IV SCH ×2 (09:14→22:23)
[2020-06-24] MEDS: ASCORBIC ACID 250 MG TAB PO SCH ×2 (09:15→22:00)
[2020-06-24] MEDS: DOCUSATE SODIUM 100 MG/10 ML ORAL LIQD FEEDTUBE SCH ×2 (09:15→22:23)
[2020-06-24] MEDS: CEFEPIME/NS 2 GM/100 ML 2 GM/100 ML BAG IV SCH (09:15)
[2020-06-24] MEDS: CHOLECALCIFEROL (VIT D3) 1000 UNIT (25 mcg) TAB PO SCH (09:15)
[2020-06-24] MEDS: POLYETHYLENE GLYCOL 3350 17 GM POWDER PO SCH (09:15)
[2020-06-24] MEDS: FAMOTIDINE 20 MG/2 ML INJ IV SCH (09:16)
[2020-06-24] MEDS: ZINC SULFATE 220 MG CAP PO SCH ×2 (09:17→22:23)
[2020-06-24 09:21] LABS: Total Cells Counted 100
[2020-06-24 09:22] LABS: Platelet Estimate Consistent w Auto; RBC Morphology Normal
--- NOTE | 2020-06-24 10:43 | Progress Note ---
Assessment and Plan tele reviewed - pt noted to be in AFlutter HR 110 - 130s since initiation of HD. He remains on vasopressors. Optimize HR - initiate IV amio. Cont heparin gtt. Pt is critically ill. Overall guarded prognosis. The patient has been seen in conjunction with Dr. Chavis who agrees with the assessment and plan of care. - Patient Problems (1) Acute respiratory failure with hypoxia Current Visit: Yes Status: Acute (2) Pneumonia due to COVID-19 virus Current Visit: Yes Status: Acute (3) Sepsis Current Visit: Yes Status: Acute Qualifiers: Severe sepsis acute organ dysfunction type: acute respiratory failure Severe sepsis shock status: with septic shock (4) Atrial fibrillation with rapid ventricular response Current Visit: Yes Status: Acute (5) Acute renal failure Current Visit: Yes Status: Acute (6) Elevated LFTs Current Visit: Yes Status: Acute Subjective Date of service: 06/24/20 Principal diagnosis: ARF/Septic Shock/COVID-19 PNA, AF with RVR Interval history: pt remains intubated, sedated. requiring multiple vasopressors. on heparin gtt. tele reviewed - in AFib/AFlutter HR 110 - 130s. Objective Last Vital Signs Temp 98.7 F 06/24/20 07:00 Pulse 121 H 06/24/20 10:20 Resp 33 H 06/24/20 10:20 BP 96/48 06/24/20 10:20 Pulse Ox 91 06/24/20 10:20 - Physical Examination General: Other (intubated, sedated) Neck: Positive: neck supple Cardiac: Positive: irregularly irregular, S1/S2, Tachycardia Lungs: Positive: Decreased Breath Sounds, Oxygen, Ventilated Respirations Neuro: Positive: Other (intubated, sedated) Skin: Negative: Rash - Labs and Meds CBC 06/24/20 Range/Units 06:30 WBC 34.3 H (4.5-11.0) K/mm3 RBC 3.73 (3.65-5.03) M/mm3 Hgb 10.9 L (11.8-15.2) gm/dl Hct 32.6 L (35.5-45.6) % Plt Count 194 (140-440) K/mm3 Lymph # (Auto) 0.7 L (1.2-5.4) K/mm3 [place] # (Auto) 1.2 H (0.0-0.8) K/mm3 Eos # (Auto) 0.0 (0.0-0.4) K/mm3 Baso # (Auto) 0.0 (0.0-0.1) K/mm3 Comprehensive Metabolic Panel 06/24/20 Range/Units 07:03 Sodium 140 (137-145) mmol/L Potassium 5.1 H (3.6-5.0) mmol/L Chloride 103.0 (98-107) mmol/L Carbon Dioxide 23 (22-30) mmol/L BUN 103 H (9-20) mg/dL Creatinine 5.0 H (0.8-1.3) mg/dL Glucose 163 H (75-100) mg/dL Calcium 7.6 L (8.4-10.2) mg/dL - Imaging and Cardiology EKG: report reviewed, image reviewed - Allied health notes Allied health notes reviewed: nursing
[2020-06-24] MEDS ORDERED: AMIODARONE 900 MG in DEXTROSE 5% IN WATER 482 ML IV SCH (11:15)
[2020-06-24] MEDS ORDERED: AMIODARONE 150 MG in DEXTROSE 5% IN WATER 97 ML IV ONE (11:15)
--- NOTE | 2020-06-24 11:36 | Progress Note ---
Assessment and Plan Assessment and plan: 59-year-old white male who was admitted for pneumonia secondary to Covid with associated respiratory failure and sepsis. Acute metabolic encephalopathy -Due to severe sepsis and severe hypoxia -CT head ordered (patient is too unstable to do the scan), currently intubated, continue supportive care with frequent neuro check Acute hypoxic respiratory failure -Due to severe COVID-19 pneumonia -Intubated following admission overnight as patient was unable to maintain oxygenation with 100% FiO2 with BiPAP -Critical care following, frequent nebulizer breathing treatment, empiric steroid Severe septic shock -Patient currently on 2 pressor support -Wean off as tolerated COVID-19 pneumonia -Follow inflammatory markers, ID consulted --Patient initially tested positive for COVID-19 virus about 2 weeks before this admission -CXR shows patchy parenchymal disease which represent pulmonary edema or atypi tanisha pneumonia -Placed on dexamethasone for total 10 days and completed remdesivir total 5 days -Continue empiric antibiotics for now per ID recommendation -Droplet/contact isolation -Continue SPO2 monitoring -Supplemental oxygen as needed -Pulmonary hygiene, Prone intermittently to improve oxygenation -Vitamin C, vitamin D, zinc -Anticoagulation per protocol -Lasix IV as needed to prevent pulmonary edema GIRISH, likely ATN -Follow BMP daily, avoid nephrotoxins -Consulted nephrology, follow recommendations -Renal function continues to decline, started on hemodialysis since 06/22/20 hypokalemia, repleted Supraventricular tachycardia/paroxysmal atrial fibrillation -likely due to severe sepsis -Patient currently on 2 pressor, will initiate IV amiodarone drip for rate control if needed -Consulted cardiology, echo ordered currently pending -Placed on heparin drip Elevated LFT, due to shock liver from severe sepsis and COVID-19 infection -Continue to trend Morbid obesity, -Associated with poor outcome with Covid infection -need counseling for diet and exercise and healthy lifestyles once clinically stable as outpatient DVT prophylaxis, per Covid protocol Full CODE STATUS Poor prognosis The high probability of a clinically significant, sudden or life threatening deterioration of the [[facility], 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 The aggregate critical care time was [42] minutes. This time is in addition to time spent performing reported procedures but includes the following: [x] Data Review and interpretation [x] Patient assessment and monitoring of vital signs [x] Documentation [x] Medication orders and management daily course: 06/18: Patient got intubated overnight. Patient was placed on BiPAP to maintain oxygenation with 100% FiO2 but apparently he found to take off his argueta which made his oxygen saturation go down at 60s/50s and patient was found altered mental status. Code met was called immediately. Patient was transferred to ICU and intubated, patient currently on 2 pressors, intubated with 100% FiO2, renal function noted to be decline, nephrology consulted. Discussed with [place] physician Dr. Thompson and requested call back on Saturday. Poor prognosis, continue to monitor with aggressive supportive care. Also called family/ to update clinical status. 06/19: Repeat COVID test was positive. cont cefepime, remdesivir per ID recommendation. follow inflammatory markers, cbc, bmp. placed on heparin drip for atrial fib 06/20: Remains on mechanical ventilation, on 2 pressors, on heparin drip. discussed with and daughter by phone. Renal function declining. cont supportive care for now. 06/21: Renal function cont to decline, urine outpt sig decreased. started on lasix 80mg BID, plan to follow urine output, if no improvement patient need to start on HD. called and daughter today. updated all clinical details 06/22: Renal function continues to decline with uremia and hyperkalemia. Will need to proceed with hemodialysis. Nephrology discussed with the family and they agrees for the hemodialysis. Patient remains on pressor support and mech anical ventilation. Vas-Cath placed today by vascular started on hemodialysis today. 06/23: 2nd round of HD today, remains on 2 pressors. per RN not tolerating TF, has no record of BM since 06/18. start on stool softner. follow cbc/bmp. updated family( and daughter) by phone -all question answered to best of my knowledge and to their satisfaction. Patient remains critically ill with a very poor prognosis. 06/24: Continue supportive care, Very poor prognosis, [employer] Supervisor to discuss with family in am due to the futility of the condition. History Interval history: patient seen and examined, remains on full ventilator, discussed with [employer] Supervisor. Hospitalist Physical - Physical exam Narrative exam: Limited physical exam due to COVID-19 pandemic to minimize transmission of the disease and to preserve PPE. Vital reviewed and stable. GENERAL: Well-developed obese white male lying on bed who is mechanically ventilated and sedated. HEENT: Normocephalic. Atraumatic. NECK: Supple. CHEST/LUNGS: On mechanical ventilation HEART/CARDIOVASCULAR: Tachycardic ABDOMEN: Visibly not distended SKIN: There is no rash NEURO: Patient is intubated MUSCULOSKELETAL: No joint effusion EXTRIMITY: no cyanosis or clubbing. PSYCH: Unable to assess. - Constitutional Vitals: Temp Pulse Resp BP Pulse Ox 98.7 F 121 H 33 H 96/48 91 06/24/20 07:00 06/24/20 10:20 06/24/20 10:20 06/24/20 10:20 06/24/20 10:20 General appearance: Present: other (Intubated and sedated) HEART Score - HEART Score Troponin: Troponin T < 0.010 ng/mL (0.00-0.029) 06/17/20 12:33 Results - Labs CBC & Chem 7: 06/24/20 06:30 06/24/20 07:03 Labs: Laboratory Last Values WBC 34.3 K/mm3 (4.5-11.0) H 06/24/20 06:30 RBC 3.73 M/mm3 (3.65-5.03) 06/24/20 06:30 Hgb 10.9 gm/dl (11.8-15.2) L 06/24/20 06:30 Hct 32.6 % (35.5-45.6) L 06/24/20 06:30 MCV 87 fl (84-94) 06/24/20 06:30 MCH 29 pg (28-32) 06/24/20 06:30 MCHC 34 % (32-34) 06/24/20 06:30 RDW 14.8 % (13.2-15.2) 06/24/20 06:30 Plt Count 194 K/mm3 (140-440) 06/24/20 06:30 Lymph % (Auto) 2.0 % (13.4-35.0) L 06/24/20 06:30 [place] % (Auto) 3.6 % (0.0-7.3) 06/24/20 06:30 Eos % (Auto) 0.0 % (0.0-4.3) 06/24/20 06:30 Baso % (Auto) 0.1 % (0.0-1.8) 06/24/20 06:30 Lymph # (Auto) 0.7 K/mm3 (1.2-5.4) L 06/24/20 06:30 [place] # (Auto) 1.2 K/mm3 (0.0-0.8) H 06/24/20 06:30 Eos # (Auto) 0.0 K/mm3 (0.0-0.4) 06/24/20 06:30 Baso # (Auto) 0.0 K/mm3 (0.0-0.1) 06/24/20 06:30 Add Manual Diff Complete 06/24/20 06:30 Total Counted 100 06/24/20 06:30 Seg Neutrophils % Cook Soup 06/24/20 06:30 Seg Neuts % (Manual) 96.0 % (40.0-70.0) H 06/24/20 06:30 Band Neutrophils % 1.0 % 06/23/20 04:00 Lymphocytes % (Manual) 3.0 % (13.4-35.0) L 06/24/20 06:30 Reactive Lymphs % (Man) 1.0 % 06/23/20 04:00 Monocytes % (Manual) 1.0 % (0.0-7.3) 06/24/20 06:30 Nucleated RBC % Not Reportable 06/24/20 06:30 Seg Neutrophils # 32.3 K/mm3 (1.8-7.7) H 06/24/20 06:30 Seg Neutrophils # Man 32.9 K/mm3 (1.8-7.7) H 06/24/20 06:30 Band Neutrophils # 0.0 K/mm3 06/24/20 06:30 Lymphocytes # (Manual) 1.0 K/mm3 (1.2-5.4) L 06/24/20 06:30 Abs React Lymphs (Man) 0.0 K/mm3 06/24/20 06:30 Monocytes # (Manual) 0.3 K/mm3 (0.0-0.8) 06/24/20 06:30 Eosinophils # (Manual) 0.0 K/mm3 (0.0-0.4) 06/24/20 06:30 Basophils # (Manual) 0.0 K/mm3 (0.0-0.1) 06/24/20 06:30 Metamyelocytes # 0.0 K/mm3 06/24/20 06:30 Myelocytes # 0.0 K/mm3 06/24/20 06:30 Promyelocytes # 0.0 K/mm3 06/24/20 06:30 Blast Cells # 0.0 K/mm3 06/24/20 06:30 WBC Morphology Not Reportable 06/24/20 06:30 Hypersegmented Neuts Not Reportable 06/24/20 06:30 Hyposegmented Neuts Not Reportable 06/24/20 06:30 Hypogranular Neuts Not Reportable 06/24/20 06:30 Smudge Cells Not Reportable 06/24/20 06:30 Toxic Granulation Not Reportable 06/24/20 06:30 Toxic Vacuolation Not Reportable 06/24/20 06:30 Dohle Bodies Not Reportable 06/24/20 06:30 Pelger-Huet Anomaly Not Reportable 06/24/20 06:30 Carlito Rods Not Reportable 06/24/20 06:30 Platelet Estimate Consistent w auto 06/24/20 06:30 Clumped Platelets Not Reportable 06/24/20 06:30 Plt Clumps, EDTA Not Reportable 06/24/20 06:30 Large Platelets Not Reportable 06/24/20 06:30 Giant Platelets Not Reportable 06/24/20 06:30 Platelet Satelliting Not Reportable 06/24/20 06:30 Plt Morphology Comment Not Reportable 06/24/20 06:30 RBC Morphology Normal 06/24/20 06:30 Dimorphic RBCs Not Reportable 06/24/20 06:30 Polychromasia Not Reportable 06/24/20 06:30 Hypochromasia Not Reportable 06/24/20 06:30 Poikilocytosis Not Reportable 06/24/20 06:30 Anisocytosis Not Reportable 06/24/20 06:30 Microcytosis Not Reportable 06/24/20 06:30 Macrocytosis Not Reportable 06/24/20 06:30 Spherocytes Not Reportable 06/24/20 06:30 Pappenheimer Bodies Not Reportable 06/24/20 06:30 Sickle Cells Not Reportable 06/24/20 06:30 Target Cells Not Reportable 06/24/20 06:30 Tear Drop Cells Not Reportable 06/24/20 06:30 Ovalocytes Not Reportable 06/24/20 06:30 Helmet Cells Not Reportable 06/24/20 06:30 [place] Bodies Not Reportable 06/24/20 06:30 [place] Rings Not Reportable 06/24/20 06:30 Livier Cells Not Reportable 06/24/20 06:30 Bite Cells Not Reportable 06/24/20 06:30 Crenated Cell Not Reportable 06/24/20 06:30 Elliptocytes Not Reportable 06/24/20 06:30 Acanthocytes (Spur) Not Reportable 06/24/20 06:30 Rouleaux Not Reportable 06/24/20 06:30 Hemoglobin C Crystals Not Reportable 06/24/20 06:30 Schistocytes Not Reportable 06/24/20 06:30 Malaria parasites Not Reportable 06/24/20 06:30 Victoriano Bodies Not Reportable 06/24/20 06:30 Hem Pathologist Commnt No 06/24/20 06:30 PT 16.4 Sec. (12.2-14.9) H 06/19/20 12:30 INR 1.32 (0.87-1.13) H 06/19/20 12:30 APTT 34.9 Sec. (24.2-36.6) 06/19/20 12:30 D-Dimer 939.89 ng/mlDDU (0-234) H 06/17/20 14:48 Heparin Anti-Xa Level 0.26 U.I./ml (0.3-0.7) L 06/24/20 09:37 ABG pH 7.335 (7.320-7.450) 06/24/20 04:41 POC ABG pCO2 41.9 mmHg (32.0-48.0) 06/24/20 04:41 POC ABG pO2 71.1 mmHg (83-108) L 06/24/20 04:41 POC ABG HCO3 21.8 06/24/20 04:41 POC ABG Base Excess -3.8 06/24/20 04:41 ABG Hemoglobin 13.1 (12.0-17.5) 06/24/20 04:41 ABG Oxyhemoglobin 92.4 (94-98) L 06/24/20 04:41 ABG Methemoglobin 0 (0.0-1.5) 06/24/20 04:41 ABG Sodium 115.6 mmol/L (136.0-145.0) L 06/24/20 04:41 ABG Potassium 4.5 mmol/L (3.40-4.50) 06/24/20 04:41 ABG Chloride 103.0 mmol/L (98-107) 06/24/20 04:41 ABG Glucose 159 mg/dL (65-95) H 06/24/20 04:41 Carboxyhemoglobin 0.5 (0.5-1.5) 06/24/20 04:41 FiO2 60.0 06/24/20 04:41 Sodium 140 mmol/L (137-145) 06/24/20 07:03 Potassium 5.1 mmol/L (3.6-5.0) H 06/24/20 07:03 Chloride 103.0 mmol/L (98-107) 06/24/20 07:03 Carbon Dioxide 23 mmol/L (22-30) 06/24/20 07:03 Anion Gap 19 mmol/L 06/24/20 07:03 BUN 103 mg/dL (9-20) H 06/24/20 07:03 Creatinine 5.0 mg/dL (0.8-1.3) H 06/24/20 07:03 Estimated GFR 14 ml/min 06/24/20 07:03 BUN/Creatinine Ratio 21 % 06/24/20 07:03 Glucose 163 mg/dL (75-100) H 06/24/20 07:03 POC Glucose 143 mg/dL (70-105) H 06/24/20 05:57 Lactic Acid 1.90 mmol/L (0.7-2.0) 06/18/20 Unknown Calcium 7.6 mg/dL (8.4-10.2) L 06/24/20 07:03 Magnesium 2.70 mg/dL (1.7-2.3) H 06/18/20 20:33 Ferritin > 2000.0 ng/mL (30.0-300.0) H 06/17/20 14:48 Total Bilirubin 0.40 mg/dL (0.1-1.2) 06/21/20 05:00 AST 98 units/L (5-40) H 06/21/20 05:00 ALT 84 units/L (7-56) H 06/21/20 05:00 Alkaline Phosphatase 68 units/L (35-129) 06/21/20 05:00 Lactate Dehydrogenase 503 units/L (91-180) H 06/17/20 14:48 Total Creatine Kinase 310 units/L (55-170) H 06/17/20 12:33 Troponin T < 0.010 ng/mL (0.00-0.029) 06/17/20 12:33 C-Reactive Protein 5.30 mg/dL (0.00-1.30) H 06/22/20 14:37 Total Protein 4.6 g/dL (6.3-8.2) L 06/21/20 05:00 Albumin 2.1 g/dL (3.9-5) L 06/21/20 05:00 Albumin/Globulin Ratio 0.8 % 06/21/20 05:00 Triglycerides 180 mg/dL (2-149) H 06/21/20 05:00 Procalcitonin 17.82 ng/mL (<0.15) 06/22/20 14:37 Arterial Blood Glucose 159 mg/dL (65-95) H 06/24/20 04:41 Arterial Blood Ionized Calcium 4.2 mg/dL (4.6-5.3) L 06/24/20 04:41 Urine Color Yellow (Yellow) 06/17/20 15:57 Urine Turbidity Clear (Clear) 06/17/20 15:57 Urine pH 6.0 (5.0-7.0) 06/17/20 15:57 Ur Specific [place] 1.019 (1.003-1.030) 06/17/20 15:57 Urine Protein 30 mg/dl mg/dL (Negative) 06/17/20 15:57 Urine Glucose (UA) Neg mg/dL (Negative) 06/17/20 15:57 Urine Ketones Neg mg/dL (Negative) 06/17/20 15:57 Urine Blood Sm (Negative) 06/17/20 15:57 Urine Nitrite Neg (Negative) 06/17/20 15:57 Ur Reducing Substances Not Reportable 06/17/20 15:57 Urine Bilirubin Neg (Negative) 06/17/20 15:57 Urine Ictotest Not Reportable 06/17/20 15:57 Urine Urobilinogen < 2.0 mg/dL (<2.0) 06/17/20 15:57 Ur Leukocyte Esterase Neg (Negative) 06/17/20 15:57 Urine WBC (Auto) 1.0 /HPF (0.0-6.0) 06/17/20 15:57 Urine RBC (Auto) 2.0 /HPF (0.0-6.0) 06/17/20 15:57 Urine Mucus Few /HPF 06/17/20 15:57 Urine Creatinine 192.4 mg/dL (0.1-20.0) H 06/18/20 15:00 Urine Sodium 28 mmol/L 06/18/20 15:00 Urine Chloride 31.1 mmolL (110-250) L 06/18/20 15:00 Nasal Screen MRSA (PCR) Negative (Negative) 06/19/20 10:38 Vancomycin Trough 22.7 ug/mL (5.0-20.0) H 06/20/20 08:25 Coronavirus (PCR) Positive (Negative) A 06/18/20 09:00 Hepatitis A IgM Ab Non-reactive (NonReactive) 06/22/20 17:00 Hep Bs Antigen Non-reactive (Negative) 06/22/20 17:00 Hep B Core IgM Ab Non-reactive (NonReactive) 06/22/20 17:00 Hepatitis C Antibody Non-reactive (NonReactive) 06/22/20 17:00 [place]/IV: Voiding Method Indwelling Catheter Active Medications - Current Medications Current Medications: Generic Name Dose Route Start Last Admin Trade Name Freq PRN Reason Stop Dose Admin Acetaminophen 650 mg 06/17/20 14:17 06/19/20 06:42 Acetaminophen 325 Mg Tab PO 650 mg Q4H PRN Administration Pain MILD(1-3)/Fever >100.5/ROBERTS Lipase/Protease/Amylase 1 each 06/19/20 12:15 Lipase 10,500/Protease 25,000/Amylase 43,750 (Units) Dr Kulkarni FEEDTUBE PRN PRN For Clogged Feeding Tube Ascorbic Acid 250 mg 06/17/20 22:00 06/24/20 09:15 Ascorbic Acid 250 Mg Tab PO 250 mg BID CONNOR Administration Cholecalciferol 1,000 unit 06/18/20 10:00 06/24/20 09:15 Cholecalciferol (Vit D3) 1000 Unit (25 Mcg) Tab PO 1,000 unit DAILY CONNOR Administration Dexamethasone 6 mg 06/18/20 22:00 06/24/20 09:14 Dexamethasone 4 Mg/Ml Vial IV 06/28/20 10:01 6 mg Q12HR CONNOR Administration Docusate Sodium 100 mg 06/23/20 15:00 06/24/20 09:15 Docusate Sodium 100 Mg/10 Ml Oral Liqd FEEDTUBE 100 mg BID CONNOR Administration Famotidine 20 mg 06/20/20 11:00 06/24/20 09:16 Famotidine 20 Mg/2 Ml Inj IV 20 mg DAILY CONNOR Administration Fentanyl 50 mcg 06/18/20 01:02 06/18/20 01:22 Fentanyl 100 Mcg/2 Ml Inj IV 50 mcg Q10MIN PRN Administration ANALGESIA Heparin Sodium (Porcine) 4,500 unit 06/19/20 11:34 06/19/20 12:37 Heparin 10,000 Units/10 Ml Vial 40 unit/kg (4500 unit) 4,500 unit IV Administration Q6H PRN Anti-Xa Assay < 0.1 units/ml Heparin Sodium (Porcine) 5,000 unit 06/22/20 12:53 Heparin 10,000 Unit/1 Ml Vial IV PAM PRN hemodialysis Hydrophilic Ointment 1 applic 06/17/20 22:52 Lip Therapy Vaseline TP Q2HR PRN Dry Lips Norepinephrine 4 mg in 250 mls @ 7.5 mls/hr 06/18/20 00:00 06/24/20 09:30 Levophed Drip 4 Mg/Ns 250 Ml IV 0 mcg/min TITR CONNOR 0 mls/hr Titration Protocol 2 MCG/MIN Propofol 1,000 mg in 100 mls @ 3.402 mls/hr 06/18/20 01:00 06/24/20 08:05 Diprivan 10 Mg/Ml IV 15 mcg/kg/min TITR CONNOR 10.206 mls/hr Administration Protocol 5 MCG/KG/MIN Fentanyl Citrate 2,000 mcg in 100 mls @ 5.67 mls/hr 06/18/20 02:00 06/24/20 08:04 Fentanyl Drip Premix IV 4 mcg/kg/hr TITR CONNOR 22.68 mls/hr Administration Protocol 1 MCG/KG/HR Vasopressin 20 unit/ Sodium 101 mls @ 9.09 mls/hr 06/18/20 10:00 06/24/20 02:15 Chloride IV 0.03 units/min TITR CONNOR 9.09 mls/hr Administration Protocol 0.03 UNITS/MIN Sodium Chloride 500 mls @ 1 mls/hr 06/18/20 09:38 06/19/20 21:37 Nacl 0.9% 500 Ml IV 0 mls/hr DIRECT PRN Infusion ARTERIAL LINE FLUSH Dextrose/Sodium Chloride 1,000 mls @ 30 mls/hr 06/18/20 12:00 06/21/20 19:16 D5ns IV Infused DIRECT CONNOR Infusion Heparin Sodium/Sodium Chloride 25,000 unit in 500 mls @ 30 mls/hr 06/19/20 12:00 06/24/20 11:14 Heparin/ 0.45% Nacl-25,000 Unit/500 Ml IV 1,350 units/hr TITR CONNOR 27 mls/hr Titration Protocol 1,500 UNITS/HR Cefepime HCl 2 gm in 100 mls @ 200 mls/hr 06/21/20 10:00 06/24/20 09:15 Cefepime/Ns 2 Gm/100 Ml IV 06/27/20 10:29 200 mls/hr Q24HR CONNOR Administration Protocol Sodium Chloride 100 mls @ 999 mls/hr 06/22/20 12:53 Nacl 0.9% IV PAM PRN Hypotension Amiodarone HCl 900 mg/ 500 mls @ 33.333 mls/hr 06/24/20 11:15 06/24/20 11:20 Dextrose IV 1 mg/min DIRECT CONNOR 33.333 mls/hr Administration Protocol 1 MG/MIN Insulin Human Regular 0 units 06/18/20 12:00 06/24/20 05:58 Insulin Regular, Human 100 Units/1 Ml SUB-Q Not Given Q6HR [facility] Protocol Lorazepam 1 mg 06/17/20 17:05 06/17/20 17:10 Lorazepam 2 Mg/Ml Vial IV 1 mg BID PRN Administration Anxiety Metoclopramide HCl 5 mg 06/22/20 13:00 06/24/20 09:14 Metoclopramide 10 Mg/2 Ml Inj IV 5 mg Q6H CONNOR Administration Multi-Ingred Cream/Lotion/Oil/Oint 1 applic 06/17/20 22:52 Mineral Oil/Petrolatum, White Ophth Oint 3.5 Gm OU Q4HR PRN Dry Eye(s) Ondansetron HCl 4 mg 06/17/20 14:17 Ondansetron 4 Mg/2 Ml Inj IV Q8H PRN Nausea And Vomiting Polyethylene Glycol 17 gm 06/23/20 15:00 06/24/20 09:15 Polyethylene Glycol 3350 17 Gm Powder PO 17 gm QDAY CONNOR Administration Simple Syrup 15 ml 06/19/20 12:15 Simple Syrup 15 Ml FEEDTUBE PRN PRN Hypoglycemia Simple Syrup 30 ml 06/19/20 12:15 Simple Syrup 15 Ml FEEDTUBE PRN PRN Hypoglycemia Sodium Bicarbonate 325 mg 06/19/20 12:15 Sodium Bicarbonate 325 Mg Tab FEEDTUBE PRN PRN For Clogged Feeding Tube Sodium Chloride 10 ml 06/17/20 22:00 06/24/20 09:16 Sodium Chloride 0.9% 10 Ml Flush Syringe IV 10 ml BID CONNOR Administration Sodium Chloride 10 ml 06/17/20 14:17 Sodium Chloride 0.9% 10 Ml Flush Syringe IV PRN PRN LINE FLUSH Zinc Sulfate 220 mg 06/17/20 22:00 06/24/20 09:17 Zinc Sulfate 220 Mg Cap PO 220 mg BID CONNOR Administration Nutrition/Malnutrition Assess - Dietary Evaluation Nutrition/Malnutrition Findings: Nutrition Notes Start: 06/18/20 10:28 Freq: Status: Active Protocol: Document 06/23/20 11:43 NASIR (Rec: 06/23/20 12:03 NASIR [id number]) Co-Sign 06/23/20 11:43 NHALL Nutrition Notes Initial or Follow up Reassessment Current Diagnosis Acute Kidney Injury,Sepsis, Respiratory Failure Other Pertinent Diagnosis COVID-19 (+), pneu Current Diet Nepro at 70 ml/h when supine, 20 ml/h when prone Labs/Tests BUN 100 Cr 4.7 GFR 15 K 4.8 Pertinent Medications Lasix Levophed Vasopressin Height 6 ft Weight 137 kg [place] Body Weight (kg) 80.90 BMI 40.9 Weight change and time frame Wt change noted, pt has fluid overload Weight Status Obese Subjective/Other Information F/u TF re-start, renal labs, and HD status. TF still on hold. HD removed 1 L. Spoke with RN about constipation and POC. Percent of energy/protein needs met: 0%/0% Burn Absent Trauma Absent GI Symptoms Constipation Current % PO Negligible Minimum of two criteria No physical signs of malnutrition #2 Nutrition Diagnosis Overweight/obesity Diagnosis Progress(for reassessment Continues documentation) #1 Nutrition Diagnosis Inadequate oral intake Diagnosis Progress(for reassessment Continues documentation) Is patient on ventilator? Yes Is Patient Ambulatory and/or Out of Bed No REE-([facility]-confined to bed) 2653.908 Kcal/Kg value to use for calculation 13 Approximate Energy Requirements Using 1781 kcal/Kg Calculation Used for Recommendations Kcal/kg Additional Notes Protein needs up to >2 g/kg IBW: 162 g Fluid needs: 500 ml + output Nutrition Intervention Change Diet Order: Once medically able, re-start Nepro 1.8 Nutrition Support: Nepro 1.8 at 40ml/hr. Flush 50ml q4hr. If proning regimen: Prone (12 hr): 20 ml/hr. Flush 50 ml q4h. Supine: 60 ml/hr Flush 50 ml q4h. Kcal 1,728 Protein (gm) 78 Fluid (mL) 698 Goal #1 Tolerate TF Goal #2 Once medically able, meet energy and protein needs as best as possible. Anticipated Discharge Needs: Unable to determine at this time Follow-Up By: 06/24/20 Additional Comments F/u TF re-start, I&O's, and renal labs.
--- NOTE | 2020-06-24 12:37 | Progress Note ---
Assessment and Plan Acute hypoxemic respiratory failure due to COVID-19 Severe COVID infection Severe Sepsis with shock Bilateral pneumonia Acute kidney injury (GIRISH) with acute tubular necrosis (ATN) Elevated liver enzymes Obesity - discussed care plan at length with his and daughters and answered their questions - RN asked to hold sedation for SAT - continue antibiotics per ID, on going fevers & hypotension (Cefepime) - continue tube feeds and advance to goal rate as tolerated - continue Reglan - discontinued femoral CVL - continue HD/UF per nephrology team for toxin and volume clearance - continue bowel regimen - continue care as below otherwise; - rate control per cardiology team for afib RVR - Continue to wean supplemental oxygen for O2 sats >92% - Monitor blood pressure closely while optimizing sedation,wean vasopressor s upport for MAP > 65 mmHg - Critical care prone positioning - Agitation management, keep RASS -1 to -12 now off proning - VAP bundle addressed, aspiration precautions HOB >40 - continue lung protective strategies, permissive hypercapnic acceptable. - continue bronchodilators with pulmonary hygiene per RT - wean per pulmonary driven protocols otherwise - accuchecks with glycemic control per SSI (While critically ill target blood glucose of 140-180 mg/dL; avoid hypoglycemia) - sedation prn for target RASS -1 to -2 - continue enteral nutritional support at goal rate as tolerated - Monitor liver function test ,avoid hepatotoxic agents - azotemia per nephrology rec's - Avoid nephrotoxins, renally dose all medications, conservative fluid management - continue to avoid benzodiazepines, reduce the possibility of delirium, - prn analgesia per CPOT score - Maintenance of sleep-wake cycle, avoid delirium - Stress ulcer prophylaxis, Famotidine - PT/OT/ROM exercises - Mobility protocols for pressure ulcer prevention - CXR, ABG in am - CBC, CMP in am - Supportive transfusions to keep HgB >7g/dL - Monitor hemodynamics closely - continue other care per attending / other consultants COVID SPECIFIC INTERVENTIONS - continue steroids: Dexamethasone - continue with Remdesivir - monitor inflammatory markers - ferritin, D-dimer, CRP, LDH every 3 days per facility protocol - continue anticoagulation per System Protocol based on d-dimer - continue contact and airborne isolation CONDITION: CRITICAL PROGNOSIS: GUARDED CODE STATUS: FULL CODE The high probability of a clinically significant, sudden or life-threatening deterioration of the [respiratory, cardiovascular, hematologic & neurologic] system(s) required my full and direct attention, intervention and personal management. The aggregate critical care time was [45] minutes without overlap. Time includes spent on; [x] Data Review and interpretation [x] Patient assessment and monitoring of vital signs [x] Documentation [x] Medication orders and management He was evaluated in the context of the global COVID-19 pandemic, which necessitated consideration that the patient might be at risk for infection with the virus that causes COVID-19. Institutional protocols and algorithms that pertain to the evaluation of patients at risk for COVID-19 are in a state of rapid change based on information released by regulatory bodies including the CDC and federal and state organizations. These policies and algorithms were followed during the patient's care in the ICU Please note that these policies, procedures and recommendations changed on a rapid basis. Subjective Date of service: 06/24/20 Principal diagnosis: ARF/Septic Shock/COVID-19 PNA, AF with RVR Interval history: Patient is seen today for: Ac hypoxemic respiratory failure; COVID-19; Severe Sepsis with shock; Zackery. pneumonia; GIRISH; Elevated liver enzymes; Obesity Seen and examined at bedside; 24hour events reviewed; nursing and respiratory care staff consulted; no adverse overnight events reported to me; resting in bed; remains on MVS; FiO2 remains at 60%; tolerating HD/UF so far; no emesis or overt aspiration; sedated; remains on full weight based anticoagulation Objective Vital Signs - 12hr 06/24/20 06/24/20 06/24/20 00:40 00:50 01:00 Temperature Pulse Rate 111 H 112 H 96 H Pulse Rate [ From Monitor] Respiratory 31 H 32 H 33 H Rate Blood Pressure 111/63 118/57 105/56 O2 Sat by Pulse 93 93 93 Oximetry 06/24/20 06/24/20 06/24/20 01:10 01:20 01:30 Temperature Pulse Rate 113 H 108 H 101 H Pulse Rate [ From Monitor] Respiratory 28 H 27 H 31 H Rate Blood Pressure 105/56 113/58 116/62 O2 Sat by Pulse 93 93 93 Oximetry 06/24/20 06/24/20 06/24/20 01:40 01:50 02:00 Temperature Pulse Rate 102 H 108 H 112 H Pulse Rate [ From Monitor] Respiratory 29 H 30 H 30 H Rate Blood Pressure 116/62 112/58 115/52 O2 Sat by Pulse 94 92 91 Oximetry 02/05/0206/24/20 06/24/20 02:10 02:20 02:30 Temperature Pulse Rate 103 H 108 H 108 H Pulse Rate [ From Monitor] Respiratory 30 H 30 H 30 H Rate Blood Pressure 115/52 103/54 112/64 O2 Sat by Pulse 92 92 92 Oximetry 06/24/20 06/24/20 06/24/20 02:40 02:50 03:00 Temperature Pulse Rate 110 H 107 H 112 H Pulse Rate [ From Monitor] Respiratory 30 H 31 H 28 H Rate Blood Pressure 112/64 112/52 111/54 O2 Sat by Pulse 94 92 92 Oximetry 06/24/20 06/24/20 06/24/20 03:10 03:20 03:30 Temperature Pulse Rate 109 H 104 H 94 H Pulse Rate [ From Monitor] Respiratory 33 H 26 H 30 H Rate Blood Pressure 111/54 116/61 113/61 O2 Sat by Pulse 92 93 94 Oximetry 06/24/20 06/24/20 06/24/20 03:31 03:40 03:50 Temperature Pulse Rate 104 H 107 H 126 H Pulse Rate [ From Monitor] Respiratory 28 H 25 H Rate Blood Pressure 116/61 113/61 99/52 O2 Sat by Pulse 93 93 92 Oximetry 06/24/20 06/24/20 06/24/20 04:00 04:10 04:20 Temperature Pulse Rate 91 H 104 H 96 H Pulse Rate [ From Monitor] Respiratory 30 H 30 H 30 H Rate Blood Pressure 113/61 110/63 110/63 O2 Sat by Pulse 93 93 93 Oximetry 06/24/20 06/24/20 06/24/20 04:30 04:40 04:50 Temperature Pulse Rate 120 H 105 H 105 H Pulse Rate [ From Monitor] Respiratory 28 H 30 H 30 H Rate Blood Pressure 110/63 100/53 100/66 O2 Sat by Pulse 89 92 94 Oximetry 06/24/20 06/24/20 06/24/20 05:00 05:10 05:20 Temperature Pulse Rate 100 H 102 H 108 H Pulse Rate [ From Monitor] Respiratory 30 H 31 H 30 H Rate Blood Pressure 93/69 93/69 119/69 O2 Sat by Pulse 94 92 92 Oximetry 06/24/20 06/24/20 06/24/20 05:30 05:40 05:50 Temperature Pulse Rate 104 H 104 H 89 Pulse Rate [ From Monitor] Respiratory 25 H 30 H 28 H Rate Blood Pressure 120/63 120/63 127/66 O2 Sat by Pulse 92 93 93 Oximetry 06/24/20 06/24/20 06/24/20 06:00 06:10 06:20 Temperature Pulse Rate 107 H 107 H 97 H Pulse Rate [ From Monitor] Respiratory 30 H 28 H 28 H Rate Blood Pressure 127/66 117/54 123/63 O2 Sat by Pulse 92 93 93 Oximetry 06/24/20 06/24/20 06/24/20 06:30 06:40 06:50 Temperature Pulse Rate 117 H 112 H 105 H Pulse Rate [ From Monitor] Respiratory 22 30 H 23 Rate Blood Pressure 123/63 100/56 112/63 O2 Sat by Pulse 90 93 93 Oximetry 06/24/20 06/24/20 06/24/20 07:00 07:10 07:20 Temperature 98.7 F Pulse Rate 115 H 111 H 97 H Pulse Rate [ From Monitor] Respiratory 30 H 28 H 17 Rate Blood Pressure 122/67 122/67 117/64 O2 Sat by Pulse 92 92 94 Oximetry 06/24/20 06/24/20 06/24/20 07:30 07:40 07:50 Temperature Pulse Rate 97 H 103 H 103 H Pulse Rate [ From Monitor] Respiratory 23 30 H 27 H Rate Blood Pressure 113/61 113/61 102/66 O2 Sat by Pulse 93 93 94 Oximetry 06/24/20 06/24/20 06/24/20 08:00 08:10 08:20 Temperature Pulse Rate 128 H 114 H 135 H Pulse Rate [ 89 From Monitor] Respiratory 29 H 26 H 30 H Rate Blood Pressure 119/61 103/70 109/58 O2 Sat by Pulse 92 93 91 Oximetry 06/24/20 06/24/20 06/24/20 08:30 08:40 08:50 Temperature Pulse Rate 121 H 113 H 107 H Pulse Rate [ From Monitor] Respiratory 30 H 26 H 28 H Rate Blood Pressure 122/58 122/58 118/57 O2 Sat by Pulse 92 93 93 Oximetry 06/24/20 06/24/20 06/24/20 09:00 09:10 09:20 Temperature Pulse Rate 113 H 115 H 101 H Pulse Rate [ From Monitor] Respiratory 30 H 30 H 28 H Rate Blood Pressure 107/53 107/53 116/60 O2 Sat by Pulse 92 92 93 Oximetry 06/24/20 06/24/20 06/24/20 09:30 09:40 09:50 Temperature Pulse Rate 107 H 107 H 126 H Pulse Rate [ From Monitor] Respiratory 30 H 30 H 30 H Rate Blood Pressure 119/61 120/51 98/52 O2 Sat by Pulse 92 91 91 Oximetry 06/24/20 06/24/20 06/24/20 10:00 10:10 10:20 Temperature Pulse Rate 119 H 136 H 121 H Pulse Rate [ From Monitor] Respiratory 28 H 28 H 33 H Rate Blood Pressure 107/42 107/42 96/48 O2 Sat by Pulse 91 90 91 Oximetry 06/24/20 06/24/20 12:00 12:15 Temperature 98.6 F Pulse Rate 107 H Pulse Rate [ From Monitor] Respiratory Rate Blood Pressure 101/51 O2 Sat by Pulse 93 Oximetry Constitutional: no acute distress, other (morbidly obese, atraumatic, normocephalic, mild resp distress, orally intuabted) Eyes: non-icteric ENT: oropharynx moist, other (ETT 24 cm TROY) Neck: supple, no lymphadenopathy, other (Large , short neck) Effort: mildly labored Ascultation: Bilateral: diminished breath sounds, rhonchi Percussion: Bilateral: not dull Cardiovascular: irregular rhythm, other (S1,S2) Gastrointestinal: normoactive bowel sounds, non-distended Integumentary: rash, other (Femoral CVC, Newell catheter) Extremities: no edema, pink and warm, pulses normal, no ischemia or petechiae Neurologic: pupils equal and round, other (unable to assess, sedated) Psychiatric: other (unable to assess, sedated) CBC and BMP: 06/24/20 06:30 06/24/20 07:03 ABG, PT/INR, D-dimer: ABG ABG pH 7.335 (7.320-7.450) 06/24/20 04:41 POC ABG pCO2 41.9 mmHg (32.0-48.0) 06/24/20 04:41 POC ABG pO2 71.1 mmHg (83-108) L 06/24/20 04:41 POC ABG HCO3 21.8 06/24/20 04:41 PT/INR, D-dimer PT 16.4 Sec. (12.2-14.9) H 06/19/20 12:30 INR 1.32 (0.87-1.13) H 06/19/20 12:30 D-Dimer 939.89 ng/mlDDU (0-234) H 06/17/20 14:48 Abnormal lab findings: Abnormal Labs 06/17/20 06/17/20 06/17/20 12:33 12:33 12:33 WBC 19.5 H RBC 5.18 H Hgb 15.5 H Hct RDW Lymph % (Auto) 3.8 L Lymph # (Auto) 0.7 L Ocean # (Auto) Seg Neuts % (Manual) 99.0 H Lymphocytes % (Manual) 1.0 L Nucleated RBC % Seg Neutrophils # 18.2 H Seg Neutrophils # Man 19.3 H Lymphocytes # (Manual) 0.2 L Monocytes # (Manual) PT 16.5 H INR 1.33 H D-Dimer 1025.04 H Heparin Anti-Xa Level ABG pH POC ABG pCO2 POC ABG pO2 ABG Oxyhemoglobin ABG Sodium ABG Potassium ABG Chloride ABG Glucose Carboxyhemoglobin Sodium 130 L Potassium 3.4 L Chloride 95.0 L Carbon Dioxide BUN 21 H Creatinine Glucose 137 H POC Glucose Lactic Acid Calcium 7.9 L Magnesium Ferritin AST 84 H ALT 67 H Lactate Dehydrogenase 437 H Total Creatine Kinase 310 H C-Reactive Protein 27.90 H Total Protein Albumin 2.9 L Triglycerides Arterial Blood Glucose Arterial Blood Ionized Calcium Urine Creatinine Urine Chloride Vancomycin Trough Coronavirus (PCR) 06/17/20 06/17/20 06/17/20 12:33 12:33 14:48 WBC RBC Hgb Hct RDW Lymph % (Auto) Lymph # (Auto) Ocean # (Auto) Seg Neuts % (Manual) Lymphocytes % (Manual) Nucleated RBC % Seg Neutrophils # Seg Neutrophils # Man Lymphocytes # (Manual) Monocytes # (Manual) PT INR D-Dimer Heparin Anti-Xa Level ABG pH POC ABG pCO2 POC ABG pO2 ABG Oxyhemoglobin ABG Sodium ABG Potassium ABG Chloride ABG Glucose Carboxyhemoglobin Sodium Potassium Chloride Carbon Dioxide BUN Creatinine Glucose POC Glucose Lactic Acid 2.50 H* 2.20 H* Calcium Magnesium Ferritin 2297.0 H AST ALT Lactate Dehydrogenase Total Creatine Kinase C-Reactive Protein Total Protein Albumin Triglycerides Arterial Blood Glucose Arterial Blood Ionized Calcium Urine Creatinine Urine Chloride Vancomycin Trough Coronavirus (PCR) 06/17/20 06/17/2006/17/21 14:48 14:48 14:48 WBC RBC Hgb Hct RDW Lymph % (Auto) Lymph # (Auto) Ocean # (Auto) Seg Neuts % (Manual) Lymphocytes % (Manual) Nucleated RBC % Seg Neutrophils # Seg Neutrophils # Man Lymphocytes # (Manual) Monocytes # (Manual) PT INR D-Dimer 939.89 H Heparin Anti-Xa Level ABG pH POC ABG pCO2 POC ABG pO2 ABG Oxyhemoglobin ABG Sodium ABG Potassium ABG Chloride ABG Glucose Carboxyhemoglobin Sodium Potassium Chloride Carbon Dioxide BUN Creatinine Glucose 141 H POC Glucose Lactic Acid Calcium Magnesium Ferritin > 2000.0 H AST ALT Lactate Dehydrogenase 503 H Total Creatine Kinase C-Reactive Protein 24.70 H Total Protein Albumin Triglycerides Arterial Blood Glucose Arterial Blood Ionized Calcium Urine Creatinine Urine Chloride Vancomycin Trough Coronavirus (PCR) 06/17/20 06/17/20 06/17/20 16:54 19:39 23:43 WBC RBC Hgb Hct RDW Lymph % (Auto) Lymph # (Auto) Ocean # (Auto) Seg Neuts % (Manual) Lymphocytes % (Manual) Nucleated RBC % Seg Neutrophils # Seg Neutrophils # Man Lymphocytes # (Manual) Monocytes # (Manual) PT INR D-Dimer Heparin Anti-Xa Level ABG pH 7.571 H POC ABG pCO2 24.3 L POC ABG pO2 41.6 L ABG Oxyhemoglobin 84.0 L ABG Sodium 131.0 L ABG Potassium ABG Chloride ABG Glucose 163 H Carboxyhemoglobin Sodium Potassium Chloride Carbon Dioxide BUN Creatinine Glucose POC Glucose 185 H Lactic Acid 2.10 H* Calcium Magnesium Ferritin AST ALT Lactate Dehydrogenase Total Creatine Kinase C-Reactive Protein Total Protein Albumin Triglycerides Arterial Blood Glucose 163 H Arterial Blood Ionized Calcium 4.4 L Urine Creatinine Urine Chloride Vancomycin Trough Coronavirus (PCR) 06/18/20 06/18/20 06/18/20 00:17 00:23 03:55 WBC RBC Hgb Hct RDW Lymph % (Auto) Lymph # (Auto) Ocean # (Auto) Seg Neuts % (Manual) Lymphocytes % (Manual) Nucleated RBC % Seg Neutrophils # Seg Neutrophils # Man Lymphocytes # (Manual) Monocytes # (Manual) PT INR D-Dimer Heparin Anti-Xa Level ABG pH POC ABG pCO2 POC ABG pO2 56.5 L 48.3 L ABG Oxyhemoglobin 86.3 L 81.7 L ABG Sodium 132.9 L 131.0 L ABG Potassium ABG Chloride ABG Glucose 189 H 161 H Carboxyhemoglobin 0.4 L Sodium Potassium Chloride Carbon Dioxide BUN Creatinine Glucose POC Glucose Lactic Acid 3.80 H* Calcium Magnesium Ferritin AST ALT Lactate Dehydrogenase Total Creatine Kinase C-Reactive Protein Total Protein Albumin Triglycerides Arterial Blood Glucose 189 H 161 H Arterial Blood Ionized Calcium 4.3 L 4.2 L Urine Creatinine Urine Chloride Vancomycin Trough Coronavirus (PCR) 06/18/20 06/18/20 06/18/20 05:39 05:39 05:39 WBC 26.2 H RBC Hgb Hct RDW Lymph % (Auto) Lymph # (Auto) Ocean # (Auto) Seg Neuts % (Manual) 90.0 H Lymphocytes % (Manual) 5.0 L Nucleated RBC % Seg Neutrophils # Seg Neutrophils # Man 23.6 H Lymphocytes # (Manual) Monocytes # (Manual) 1.3 H PT INR D-Dimer Heparin Anti-Xa Level ABG pH POC ABG pCO2 POC ABG pO2 ABG Oxyhemoglobin ABG Sodium ABG Potassium ABG Chloride ABG Glucose Carboxyhemoglobin Sodium 135 L Potassium Chloride 97.5 L Carbon Dioxide 21 L BUN 39 H Creatinine 1.7 H D Glucose 168 H POC Glucose Lactic Acid 3.40 H* Calcium 7.2 L Magnesium Ferritin AST ALT Lactate Dehydrogenase Total Creatine Kinase C-Reactive Protein Total Protein Albumin Triglycerides Arterial Blood Glucose Arterial Blood Ionized Calcium Urine Creatinine Urine Chloride Vancomycin Trough Coronavirus (PCR) 06/18/20 06/18/20 06/18/20 07:24 09:00 10:10 WBC RBC Hgb Hct RDW Lymph % (Auto) Lymph # (Auto) Ocean # (Auto) Seg Neuts % (Manual) Lymphocytes % (Manual) Nucleated RBC % Seg Neutrophils # Seg Neutrophils # Man Lymphocytes # (Manual) Monocytes # (Manual) PT INR D-Dimer Heparin Anti-Xa Level ABG pH POC ABG pCO2 POC ABG pO2 ABG Oxyhemoglobin ABG Sodium ABG Potassium ABG Chloride ABG Glucose Carboxyhemoglobin Sodium Potassium Chloride Carbon Dioxide BUN Creatinine Glucose POC Glucose Lactic Acid 2.90 H* 3.20 H* Calcium Magnesium Ferritin AST ALT Lactate Dehydrogenase Total Creatine Kinase C-Reactive Protein Total Protein Albumin Triglycerides Arterial Blood Glucose Arterial Blood Ionized Calcium Urine Creatinine Urine Chloride Vancomycin Trough Coronavirus (PCR) Positive A 06/18/20 06/18/20 06/18/20 11:58 14:43 15:00 WBC RBC Hgb Hct RDW Lymph % (Auto) Lymph # (Auto) Ocean # (Auto) Seg Neuts % (Manual) Lymphocytes % (Manual) Nucleated RBC % Seg Neutrophils # Seg Neutrophils # Man Lymphocytes # (Manual) Monocytes # (Manual) PT INR D-Dimer Heparin Anti-Xa Level ABG pH 7.303 L POC ABG pCO2 POC ABG pO2 82.3 L ABG Oxyhemoglobin ABG Sodium 135.3 L ABG Potassium ABG Chloride ABG Glucose 215 H Carboxyhemoglobin 0.3 L Sodium Potassium Chloride Carbon Dioxide BUN Creatinine Glucose POC Glucose 209 H Lactic Acid Calcium Magnesium Ferritin AST ALT Lactate Dehydrogenase Total Creatine Kinase C-Reactive Protein Total Protein Albumin Triglycerides Arterial Blood Glucose 215 H Arterial Blood Ionized Calcium 4.2 L Urine Creatinine 192.4 H Urine Chloride 31.1 L Vancomycin Trough Coronavirus (PCR) 06/18/20 06/18/20 06/18/20 17:16 19:44 20:33 WBC RBC Hgb Hct RDW Lymph % (Auto) Lymph # (Auto) Ocean # (Auto) Seg Neuts % (Manual) Lymphocytes % (Manual) Nucleated RBC % Seg Neutrophils # Seg Neutrophils # Man Lymphocytes # (Manual) Monocytes # (Manual) PT INR D-Dimer Heparin Anti-Xa Level ABG pH POC ABG pCO2 POC ABG pO2 ABG Oxyhemoglobin ABG Sodium ABG Potassium ABG Chloride ABG Glucose Carboxyhemoglobin Sodium Potassium Chloride Carbon Dioxide BUN Creatinine Glucose POC Glucose 182 H Lactic Acid 3.00 H* Calcium Magnesium 2.70 H Ferritin AST ALT Lactate Dehydrogenase Total Creatine Kinase C-Reactive Protein Total Protein Albumin Triglycerides Arterial Blood Glucose Arterial Blood Ionized Calcium Urine Creatinine Urine Chloride Vancomycin Trough Coronavirus (PCR) 06/18/20 06/19/20 06/19/20 23:43 04:00 04:00 WBC 31.6 H RBC Hgb Hct RDW Lymph % (Auto) Lymph # (Auto) Ocean # (Auto) Seg Neuts % (Manual) 98.0 H Lymphocytes % (Manual) 0.5 L Nucleated RBC % Seg Neutrophils # Seg Neutrophils # Man 31.0 H Lymphocytes # (Manual) 0.2 L Monocytes # (Manual) PT INR D-Dimer Heparin Anti-Xa Level ABG pH POC ABG pCO2 POC ABG pO2 ABG Oxyhemoglobin ABG Sodium ABG Potassium ABG Chloride ABG Glucose Carboxyhemoglobin Sodium Potassium Chloride Carbon Dioxide BUN 56 H Creatinine 1.6 H Glucose 176 H POC Glucose 149 H Lactic Acid Calcium 7.0 L Magnesium Ferritin AST 244 H ALT 159 H Lactate Dehydrogenase Total Creatine Kinase C-Reactive Protein Total Protein 4.9 L D Albumin 2.5 L Triglycerides Arterial Blood Glucose Arterial Blood Ionized Calcium Urine Creatinine Urine Chloride Vancomycin Trough Coronavirus (PCR) 06/19/20 06/19/20 06/19/20 04:00 05:44 11:42 WBC RBC Hgb Hct RDW Lymph % (Auto) Lymph # (Auto) Ocean # (Auto) Seg Neuts % (Manual) Lymphocytes % (Manual) Nucleated RBC % Seg Neutrophils # Seg Neutrophils # Man Lymphocytes # (Manual) Monocytes # (Manual) PT INR D-Dimer Heparin Anti-Xa Level ABG pH 7.265 L POC ABG pCO2 51.8 H POC ABG pO2 65.1 L ABG Oxyhemoglobin ABG Sodium ABG Potassium ABG Chloride ABG Glucose 184 H Carboxyhemoglobin Sodium Potassium Chloride Carbon Dioxide BUN Creatinine Glucose POC Glucose 156 H 191 H Lactic Acid Calcium Magnesium Ferritin AST ALT Lactate Dehydrogenase Total Creatine Kinase C-Reactive Protein Total Protein Albumin Triglycerides Arterial Blood Glucose 184 H Arterial Blood Ionized Calcium 4.3 L Urine Creatinine Urine Chloride Vancomycin Trough Coronavirus (PCR) 06/19/20 06/19/20 06/19/20 12:30 17:16 18:36 WBC RBC Hgb Hct RDW Lymph % (Auto) Lymph # (Auto) Ocean # (Auto) Seg Neuts % (Manual) Lymphocytes % (Manual) Nucleated RBC % Seg Neutrophils # Seg Neutrophils # Man Lymphocytes # (Manual) Monocytes # (Manual) PT 16.4 H INR 1.32 H D-Dimer Heparin Anti-Xa Level ABG pH 7.088 L POC ABG pCO2 78.1 H POC ABG pO2 208.3 H ABG Oxyhemoglobin 98.3 H ABG Sodium ABG Potassium 5.0 H ABG Chloride ABG Glucose 182 H Carboxyhemoglobin 0.4 L Sodium Potassium Chloride Carbon Dioxide BUN Creatinine Glucose POC Glucose 154 H Lactic Acid Calcium Magnesium Ferritin AST ALT Lactate Dehydrogenase Total Creatine Kinase C-Reactive Protein Total Protein Albumin Triglycerides Arterial Blood Glucose 182 H Arterial Blood Ionized Calcium 4.3 L Urine Creatinine Urine Chloride Vancomycin Trough Coronavirus (PCR) 06/19/20 06/20/20 06/20/20 23:32 03:00 05:19 WBC RBC Hgb Hct RDW Lymph % (Auto) Lymph # (Auto) Ocean # (Auto) Seg Neuts % (Manual) Lymphocytes % (Manual) Nucleated RBC % Seg Neutrophils # Seg Neutrophils # Man Lymphocytes # (Manual) Monocytes # (Manual) PT INR D-Dimer Heparin Anti-Xa Level 0.77 H ABG pH POC ABG pCO2 POC ABG pO2 ABG Oxyhemoglobin ABG Sodium ABG Potassium ABG Chloride ABG Glucose Carboxyhemoglobin Sodium Potassium Chloride Carbon Dioxide BUN Creatinine Glucose POC Glucose 201 H 190 H Lactic Acid Calcium Magnesium Ferritin AST ALT Lactate Dehydrogenase Total Creatine Kinase C-Reactive Protein Total Protein Albumin Triglycerides Arterial Blood Glucose Arterial Blood Ionized Calcium Urine Creatinine Urine Chloride Vancomycin Trough Coronavirus (PCR) 06/20/20 06/20/20 06/20/20 08:25 08:25 11:36 WBC RBC Hgb Hct RDW Lymph % (Auto) Lymph # (Auto) Ocean # (Auto) Seg Neuts % (Manual) Lymphocytes % (Manual) Nucleated RBC % Seg Neutrophils # Seg Neutrophils # Man Lymphocytes # (Manual) Monocytes # (Manual) PT INR D-Dimer Heparin Anti-Xa Level ABG pH POC ABG pCO2 POC ABG pO2 ABG Oxyhemoglobin ABG Sodium ABG Potassium ABG Chloride ABG Glucose Carboxyhemoglobin Sodium 135 L Potassium 5.4 H Chloride 109.2 H Carbon Dioxide 19 L BUN 68 H Creatinine 2.5 H D Glucose 201 H POC Glucose 184 H Lactic Acid Calcium 5.5 L* D Magnesium Ferritin AST 123 H ALT 86 H Lactate Dehydrogenase Total Creatine Kinase C-Reactive Protein Total Protein 4.6 L Albumin 1.5 L Triglycerides Arterial Blood Glucose Arterial Blood Ionized Calcium Urine Creatinine Urine Chloride Vancomycin Trough 22.7 H Coronavirus (PCR) 06/20/20 06/20/20 06/20/20 11:40 17:28 20:00 WBC RBC Hgb Hct RDW Lymph % (Auto) Lymph # (Auto) Ocean # (Auto) Seg Neuts % (Manual) Lymphocytes % (Manual) Nucleated RBC % Seg Neutrophils # Seg Neutrophils # Man Lymphocytes # (Manual) Monocytes # (Manual) PT INR D-Dimer Heparin Anti-Xa Level 0.89 H ABG pH 7.099 L POC ABG pCO2 61.1 H POC ABG pO2 ABG Oxyhemoglobin ABG Sodium ABG Potassium 5.0 H ABG Chloride 111.0 H ABG Glucose 200 H Carboxyhemoglobin 0.4 L Sodium Potassium Chloride Carbon Dioxide BUN Creatinine Glucose POC Glucose 165 H Lactic Acid Calcium Magnesium Ferritin AST ALT Lactate Dehydrogenase Total Creatine Kinase C-Reactive Protein Total Protein Albumin Triglycerides Arterial Blood Glucose 200 H Arterial Blood Ionized Calcium 4.2 L Urine Creatinine Urine Chloride Vancomycin Trough Coronavirus (PCR) 06/20/20 06/21/20 06/21/20 23:29 05:00 05:20 WBC RBC Hgb Hct RDW Lymph % (Auto) Lymph # (Auto) Ocean # (Auto) Seg Neuts % (Manual) Lymphocytes % (Manual) Nucleated RBC % Seg Neutrophils # Seg Neutrophils # Man Lymphocytes # (Manual) Monocytes # (Manual) PT INR D-Dimer Heparin Anti-Xa Level ABG pH POC ABG pCO2 POC ABG pO2 ABG Oxyhemoglobin ABG Sodium ABG Potassium ABG Chloride ABG Glucose Carboxyhemoglobin Sodium Potassium Chloride 112.0 H Carbon Dioxide 20 L BUN 92 H Creatinine 3.9 H D Glucose 214 H POC Glucose 145 H 191 H Lactic Acid Calcium 6.5 L D Magnesium Ferritin AST 98 H ALT 84 H Lactate Dehydrogenase Total Creatine Kinase C-Reactive Protein Total Protein 4.6 L Albumin 2.1 L Triglycerides 180 H Arterial Blood Glucose Arterial Blood Ionized Calcium Urine Creatinine Urine Chloride Vancomycin Trough Coronavirus (PCR) 06/21/20 06/21/20 06/21/20 08:56 11:12 12:43 WBC RBC Hgb Hct RDW Lymph % (Auto) Lymph # (Auto) Ocean # (Auto) Seg Neuts % (Manual) Lymphocytes % (Manual) Nucleated RBC % Seg Neutrophils # Seg Neutrophils # Man Lymphocytes # (Manual) Monocytes # (Manual) PT INR D-Dimer Heparin Anti-Xa Level 0.28 L ABG pH 7.184 L POC ABG pCO2 48.3 H POC ABG pO2 172.1 H ABG Oxyhemoglobin 98.7 H ABG Sodium ABG Potassium 4.9 H ABG Chloride 112.0 H ABG Glucose 196 H Carboxyhemoglobin 0.2 L Sodium Potassium Chloride Carbon Dioxide BUN Creatinine Glucose POC Glucose 177 H Lactic Acid Calcium Magnesium Ferritin AST ALT Lactate Dehydrogenase Total Creatine Kinase C-Reactive Protein Total Protein Albumin Triglycerides Arterial Blood Glucose 196 H Arterial Blood Ionized Calcium 4.1 L Urine Creatinine Urine Chloride Vancomycin Trough Coronavirus (PCR) 06/21/20 06/21/20 06/22/20 16:31 Unknown 00:12 WBC RBC Hgb Hct RDW Lymph % (Auto) Lymph # (Auto) Ocean # (Auto) Seg Neuts % (Manual) Lymphocytes % (Manual) Nucleated RBC % Seg Neutrophils # Seg Neutrophils # Man Lymphocytes # (Manual) Monocytes # (Manual) PT INR D-Dimer Heparin Anti-Xa Level 0.78 H ABG pH POC ABG pCO2 POC ABG pO2 ABG Oxyhemoglobin ABG Sodium ABG Potassium ABG Chloride ABG Glucose Carboxyhemoglobin Sodium Potassium Chloride Carbon Dioxide BUN Creatinine Glucose POC Glucose 150 H 173 H Lactic Acid Calcium Magnesium Ferritin AST ALT Lactate Dehydrogenase Total Creatine Kinase C-Reactive Protein Total Protein Albumin Triglycerides Arterial Blood Glucose Arterial Blood Ionized Calcium Urine Creatinine Urine Chloride Vancomycin Trough Coronavirus (PCR) 06/22/20 06/22/20 06/22/20 04:00 05:04 05:30 WBC 33.9 H RBC Hgb 11.7 L Hct 35.2 L RDW 15.8 H Lymph % (Auto) Lymph # (Auto) Ocean # (Auto) Seg Neuts % (Manual) 93.0 H Lymphocytes % (Manual) 5.0 L Nucleated RBC % Seg Neutrophils # Seg Neutrophils # Man 31.5 H Lymphocytes # (Manual) Monocytes # (Manual) PT INR D-Dimer Heparin Anti-Xa Level ABG pH 7.169 L POC ABG pCO2 POC ABG pO2 ABG Oxyhemoglobin ABG Sodium ABG Potassium 5.1 H ABG Chloride 112.0 H ABG Glucose 186 H Carboxyhemoglobin 0.3 L Sodium Potassium Chloride Carbon Dioxide BUN Creatinine Glucose POC Glucose 161 H Lactic Acid Calcium Magnesium Ferritin AST ALT Lactate Dehydrogenase Total Creatine Kinase C-Reactive Protein Total Protein Albumin Triglycerides Arterial Blood Glucose 186 H Arterial Blood Ionized Calcium 4.1 L Urine Creatinine Urine Chloride Vancomycin Trough Coronavirus (PCR) 06/22/20 06/22/20 06/22/20 05:30 11:39 13:27 WBC RBC Hgb Hct RDW Lymph % (Auto) Lymph # (Auto) Ocean # (Auto) Seg Neuts % (Manual) Lymphocytes % (Manual) Nucleated RBC % Seg Neutrophils # Seg Neutrophils # Man Lymphocytes # (Manual) Monocytes # (Manual) PT INR D-Dimer Heparin Anti-Xa Level ABG pH POC ABG pCO2 POC ABG pO2 ABG Oxyhemoglobin ABG Sodium ABG Potassium ABG Chloride ABG Glucose Carboxyhemoglobin Sodium Potassium 5.7 H Chloride 111.3 H Carbon Dioxide 18 L BUN 112 H Creatinine 5.0 H Glucose 173 H POC Glucose 172 H 176 H Lactic Acid Calcium 6.7 L Magnesium Ferritin AST ALT Lactate Dehydrogenase Total Creatine Kinase C-Reactive Protein Total Protein Albumin Triglycerides Arterial Blood Glucose Arterial Blood Ionized Calcium Urine Creatinine Urine Chloride Vancomycin Trough Coronavirus (PCR) 06/22/20 06/22/20 06/22/20 14:37 17:00 17:40 WBC RBC Hgb Hct RDW Lymph % (Auto) Lymph # (Auto) Ocean # (Auto) Seg Neuts % (Manual) Lymphocytes % (Manual) Nucleated RBC % Seg Neutrophils # Seg Neutrophils # Man Lymphocytes # (Manual) Monocytes # (Manual) PT INR D-Dimer Heparin Anti-Xa Level 1.32 H ABG pH POC ABG pCO2 POC ABG pO2 ABG Oxyhemoglobin ABG Sodium ABG Potassium ABG Chloride ABG Glucose Carboxyhemoglobin Sodium Potassium Chloride Carbon Dioxide BUN Creatinine Glucose POC Glucose 171 H Lactic Acid Calcium Magnesium Ferritin AST ALT Lactate Dehydrogenase Total Creatine Kinase C-Reactive Protein 5.30 H Total Protein Albumin Triglycerides Arterial Blood Glucose Arterial Blood Ionized Calcium Urine Creatinine Urine Chloride Vancomycin Trough Coronavirus (PCR) 06/22/20 06/23/20 06/23/20 23:36 02:13 02:41 WBC RBC Hgb Hct RDW Lymph % (Auto) Lymph # (Auto) Ocean # (Auto) Seg Neuts % (Manual) Lymphocytes % (Manual) Nucleated RBC % Seg Neutrophils # Seg Neutrophils # Man Lymphocytes # (Manual) Monocytes # (Manual) PT INR D-Dimer Heparin Anti-Xa Level 0.21 L ABG pH 7.318 L POC ABG pCO2 POC ABG pO2 157.5 H ABG Oxyhemoglobin ABG Sodium 135.6 L ABG Potassium 4.6 H ABG Chloride 110.0 H ABG Glucose 169 H Carboxyhemoglobin Sodium Potassium Chloride Carbon Dioxide BUN Creatinine Glucose POC Glucose 155 H Lactic Acid Calcium Magnesium Ferritin AST ALT Lactate Dehydrogenase Total Creatine Kinase C-Reactive Protein Total Protein Albumin Triglycerides Arterial Blood Glucose 169 H Arterial Blood Ionized Calcium Urine Creatinine Urine Chloride Vancomycin Trough Coronavirus (PCR) 06/23/20 06/23/20 06/23/20 04:00 04:00 05:24 WBC 27.4 H RBC Hgb 11.3 L Hct 33.8 L RDW Lymph % (Auto) Lymph # (Auto) Ocean # (Auto) Seg Neuts % (Manual) 93.0 H Lymphocytes % (Manual) 1.0 L Nucleated RBC % 1.0 H Seg Neutrophils # Seg Neutrophils # Man 25.5 H Lymphocytes # (Manual) 0.3 L Monocytes # (Manual) 1.1 H PT INR D-Dimer Heparin Anti-Xa Level ABG pH POC ABG pCO2 POC ABG pO2 ABG Oxyhemoglobin ABG Sodium ABG Potassium ABG Chloride ABG Glucose Carboxyhemoglobin Sodium Potassium Chloride 107.6 H Carbon Dioxide 20 L BUN 100 H Creatinine 4.7 H Glucose 168 H POC Glucose 151 H Lactic Acid Calcium Magnesium Ferritin AST ALT Lactate Dehydrogenase Total Creatine Kinase C-Reactive Protein Total Protein Albumin Triglycerides Arterial Blood Glucose Arterial Blood Ionized Calcium Urine Creatinine Urine Chloride Vancomycin Trough Coronavirus (PCR) 06/23/20 06/23/20 06/23/20 11:30 17:18 23:50 WBC RBC Hgb Hct RDW Lymph % (Auto) Lymph # (Auto) Ocean # (Auto) Seg Neuts % (Manual) Lymphocytes % (Manual) Nucleated RBC % Seg Neutrophils # Seg Neutrophils # Man Lymphocytes # (Manual) Monocytes # (Manual) PT INR D-Dimer Heparin Anti-Xa Level ABG pH POC ABG pCO2 POC ABG pO2 ABG Oxyhemoglobin ABG Sodium ABG Potassium ABG Chloride ABG Glucose Carboxyhemoglobin Sodium Potassium Chloride Carbon Dioxide BUN Creatinine Glucose POC Glucose 157 H 156 H 162 H Lactic Acid Calcium Magnesium Ferritin AST ALT Lactate Dehydrogenase Total Creatine Kinase C-Reactive Protein Total Protein Albumin Triglycerides Arterial Blood Glucose Arterial Blood Ionized Calcium Urine Creatinine Urine Chloride Vancomycin Trough Coronavirus (PCR) 06/24/20 06/24/20 06/24/20 04:41 05:57 06:30 WBC 34.3 H RBC Hgb 10.9 L Hct 32.6 L RDW Lymph % (Auto) 2.0 L Lymph # (Auto) 0.7 L Ocean # (Auto) 1.2 H Seg Neuts % (Manual) 96.0 H Lymphocytes % (Manual) 3.0 L Nucleated RBC % Seg Neutrophils # 32.3 H Seg Neutrophils # Man 32.9 H Lymphocytes # (Manual) 1.0 L Monocytes # (Manual) PT INR D-Dimer Heparin Anti-Xa Level ABG pH POC ABG pCO2 POC ABG pO2 71.1 L ABG Oxyhemoglobin 92.4 L ABG Sodium 115.6 L ABG Potassium ABG Chloride ABG Glucose 159 H Carboxyhemoglobin Sodium Potassium Chloride Carbon Dioxide BUN Creatinine Glucose POC Glucose 143 H Lactic Acid Calcium Magnesium Ferritin AST ALT Lactate Dehydrogenase Total Creatine Kinase C-Reactive Protein Total Protein Albumin Triglycerides Arterial Blood Glucose 159 H Arterial Blood Ionized Calcium 4.2 L Urine Creatinine Urine Chloride Vancomycin Trough Coronavirus (PCR) 06/24/20 06/24/20 06/24/20 07:03 09:37 11:56 WBC RBC Hgb Hct RDW Lymph % (Auto) Lymph # (Auto) Ocean # (Auto) Seg Neuts % (Manual) Lymphocytes % (Manual) Nucleated RBC % Seg Neutrophils # Seg Neutrophils # Man Lymphocytes # (Manual) Monocytes # (Manual) PT INR D-Dimer Heparin Anti-Xa Level 0.26 L ABG pH POC ABG pCO2 POC ABG pO2 ABG Oxyhemoglobin ABG Sodium ABG Potassium ABG Chloride ABG Glucose Carboxyhemoglobin Sodium Potassium 5.1 H Chloride Carbon Dioxide BUN 103 H Creatinine 5.0 H Glucose 163 H POC Glucose 149 H Lactic Acid Calcium 7.6 L Magnesium Ferritin AST ALT Lactate Dehydrogenase Total Creatine Kinase C-Reactive Protein Total Protein Albumin Triglycerides Arterial Blood Glucose Arterial Blood Ionized Calcium Urine Creatinine Urine Chloride Vancomycin Trough Coronavirus (PCR) Chest x-ray: image reviewed (tubes and lines in good position) Allied health notes reviewed: nursing
[2020-06-24] MEDS: EPOETIN ALFA-EPBX 10,000 UNIT/1 ML VIAL IV PRN (14:33)
--- NOTE | 2020-06-24 15:30 | Progress Note ---
Assessment and Plan Cultures: SARS CoV2 PCR: Positive as outpatient Blood culture: no growth Sputum culture: no growth A/P: 59-year-old male with obesity, obesity hypoventilation syndrome: #Severe sepsis with septic shock: likely secondary to critical COVID-19 pneumonia. Blood cultures so far negative. ?Bacterial pneumonia component, but sputum culture with no growth. On empiric abx, steroids. Completed Remdesivir. #Critical COVID-19 pneumonia: Procalcitonin also high, treating with empiric antibiotics. #Acute hypoxic respiratory failure: on the vent #Transaminitis: Likely secondary to COVID-19. #GIRISH: creatinine elevated. Recs: -Continue steroids for at least total 10 days -s/p Remdesivir -Continue empiric IV Cefepime x 7 days given ongoing pressor use -prophylactic anticoagulation based on d-dimer per hospital protocol -trend ferritin, LDH, d-dimer, CRP every 2-3 days for risk stratification and to assess disease progression -extremely poor prognosis Tj Fajardo MD, FACP [facility] ([facility] O: [phone] F: [phone] Subjective Date of service: 06/24/20 Principal diagnosis: ARF/Septic Shock/COVID-19 PNA, AF with RVR Interval history: Remains on the vent. Critically ill, on multiple pressors. Objective - Exam Narrative Exam: Physical Exam (reviewed in chart to minimize risk of transmission) Constitutional: deferred Head, Ears, Nose: deferred Eyes: deferred Neck: deferred Oral: deferred Cardiovascular: deferred Respiratory: deferred GI: deferred Musculoskeletal: deferred Skin: deferred Hem/Lymphatic: deferred Psych: deferred Neurological: deferred - Constitutional Vitals: Vital Signs Temp Pulse Resp BP Pulse Ox 98.6 F 114 H 25 H 100/63 90 06/24/20 12:00 06/24/20 15:00 06/24/20 13:10 06/24/20 15:00 06/24/20 15:00 Temperature -Last 24 Hours Temperature 98.6 F Temperature 98.7 F Temperature 98.1 F Temperature 99.3 F Temperature 98.8 F Temperature 98.9 F - Labs CBC & Chem 7: 06/24/20 06:30 06/24/20 07:03 Labs: Abnormal lab results 06/23/20 06/23/20 06/23/20 Range/Units 11:30 17:18 23:50 WBC (4.5-11.0) K/mm3 Hgb (11.8-15.2) gm/dl Hct (35.5-45.6) % Lymph % (Auto) (13.4-35.0) % Lymph # (Auto) (1.2-5.4) K/mm3 Hill # (Auto) (0.0-0.8) K/mm3 Seg Neuts % (Manual) (40.0-70.0) % Lymphocytes % (Manual) (13.4-35.0) % Seg Neutrophils # (1.8-7.7) K/mm3 Seg Neutrophils # Man (1.8-7.7) K/mm3 Lymphocytes # (Manual) (1.2-5.4) K/mm3 Heparin Anti-Xa Level (0.3-0.7) U.I./ml POC ABG pO2 (83-108) mmHg ABG Oxyhemoglobin (94-98) ABG Sodium (136.0-145.0) mmol/L ABG Glucose (65-95) mg/dL Potassium (3.6-5.0) mmol/L BUN (9-20) mg/dL Creatinine (0.8-1.3) mg/dL Glucose (75-100) mg/dL POC Glucose 157 H 156 H 162 H (70-105) mg/dL Calcium (8.4-10.2) mg/dL Arterial Blood Glucose (65-95) mg/dL Arterial Blood Ionized Calcium (4.6-5.3) mg/dL 06/24/20 06/24/20 06/24/20 Range/Units 04:41 05:57 06:30 WBC 34.3 H (4.5-11.0) K/mm3 Hgb 10.9 L (11.8-15.2) gm/dl Hct 32.6 L (35.5-45.6) % Lymph % (Auto) 2.0 L (13.4-35.0) % Lymph # (Auto) 0.7 L (1.2-5.4) K/mm3 Hill # (Auto) 1.2 H (0.0-0.8) K/mm3 Seg Neuts % (Manual) 96.0 H (40.0-70.0) % Lymphocytes % (Manual) 3.0 L (13.4-35.0) % Seg Neutrophils # 32.3 H (1.8-7.7) K/mm3 Seg Neutrophils # Man 32.9 H (1.8-7.7) K/mm3 Lymphocytes # (Manual) 1.0 L (1.2-5.4) K/mm3 Heparin Anti-Xa Level (0.3-0.7) U.I./ml POC ABG pO2 71.1 L (83-108) mmHg ABG Oxyhemoglobin 92.4 L (94-98) ABG Sodium 115.6 L (136.0-145.0) mmol/L ABG Glucose 159 H (65-95) mg/dL Potassium (3.6-5.0) mmol/L BUN (9-20) mg/dL Creatinine (0.8-1.3) mg/dL Glucose (75-100) mg/dL POC Glucose 143 H (70-105) mg/dL Calcium (8.4-10.2) mg/dL Arterial Blood Glucose 159 H (65-95) mg/dL Arterial Blood Ionized Calcium 4.2 L (4.6-5.3) mg/dL 06/24/20 06/24/20 06/24/20 Range/Units 07:03 09:37 11:56 WBC (4.5-11.0) K/mm3 Hgb (11.8-15.2) gm/dl Hct (35.5-45.6) % Lymph % (Auto) (13.4-35.0) % Lymph # (Auto) (1.2-5.4) K/mm3 Hill # (Auto) (0.0-0.8) K/mm3 Seg Neuts % (Manual) (40.0-70.0) % Lymphocytes % (Manual) (13.4-35.0) % Seg Neutrophils # (1.8-7.7) K/mm3 Seg Neutrophils # Man (1.8-7.7) K/mm3 Lymphocytes # (Manual) (1.2-5.4) K/mm3 Heparin Anti-Xa Level 0.26 L (0.3-0.7) U.I./ml POC ABG pO2 (83-108) mmHg ABG Oxyhemoglobin (94-98) ABG Sodium (136.0-145.0) mmol/L ABG Glucose (65-95) mg/dL Potassium 5.1 H (3.6-5.0) mmol/L BUN 103 H (9-20) mg/dL Creatinine 5.0 H (0.8-1.3) mg/dL Glucose 163 H (75-100) mg/dL POC Glucose 149 H (70-105) mg/dL Calcium 7.6 L (8.4-10.2) mg/dL Arterial Blood Glucose (65-95) mg/dL Arterial Blood Ionized Calcium (4.6-5.3) mg/dL
[2020-06-25] MEDS: METOCLOPRAMIDE 10 MG/2 ML INJ IV SCH ×4 (01:00→18:03)
[2020-06-25] MEDS: HEPARIN/ 0.45% NACL DRIP 25,000 UNIT/500 ML BAG IV SCH ×2 (02:33→19:21)
[2020-06-25 03:47] LABS: Hematocrit 32.1 % (35.5-45.6); Hemoglobin 10.6 gm/dl (11.8-15.2)
[2020-06-25] MEDS: fentaNYL DRIP Premix 2,000 MCG/100 ML BAG IV SCH ×3 (05:08→20:52)
[2020-06-25] MEDS: INSULIN REGULAR, HUMAN 100 UNITS/1 ML SUB-Q SCH ×3 (05:50→17:54)
[2020-06-25] MEDS: DOCUSATE SODIUM 100 MG/10 ML ORAL LIQD FEEDTUBE SCH ×2 (09:03→22:30)
[2020-06-25] MEDS: ZINC SULFATE 220 MG CAP PO SCH ×2 (09:03→22:30)
[2020-06-25] MEDS: CHOLECALCIFEROL (VIT D3) 1000 UNIT (25 mcg) TAB PO SCH (09:03)
[2020-06-25] MEDS: FAMOTIDINE 20 MG/2 ML INJ IV SCH (09:03)
[2020-06-25] MEDS: dexAMETHasone 4 MG/ML VIAL IV SCH ×2 (09:03→22:25)
[2020-06-25] MEDS: CEFEPIME/NS 2 GM/100 ML 2 GM/100 ML BAG IV SCH (09:04)
[2020-06-25] MEDS: POLYETHYLENE GLYCOL 3350 17 GM POWDER PO SCH (09:05)
[2020-06-25] MEDS: ASCORBIC ACID 250 MG TAB PO SCH ×2 (09:05→22:30)
--- NOTE | 2020-06-25 10:11 | Progress Note ---
Assessment and Plan - Patient Problems (1) Acute renal failure Current Visit: Yes Status: Acute Plan to address problem: Acute kidney failure Covid as stated nephropathy -prerenal azotemia versus acute tubular necrosis. Kidney function worsening and patient developed hyperkalemia, refractory acidosis and worsening azotemia. Hemodialysis initiated on June 22. Patient tolerated treatment June 22. On June 23, treatment was cut short by 15 minutes due to tachycardia. Tolerated hemodialysis yesterday June 24 with no problems and 1 L ultrafiltration. Hemodynamic status is not significantly changed. I will [place] back with family today and see about their long-term goals. They had indicated and patient would not like to be on chronic life support. Patient with multisystem organ failure and does not appear to be making significant progress. Prognosis is poor (2) Severe sepsis with septic shock Current Visit: Yes Status: Acute Plan to address problem: Continue antibiotics per infectious disease library consultant appropriately adjusted to the degree of renal function. (3) Hyperkalemia Current Visit: Yes Status: Acute Plan to address problem: Improved with dialysis (4) Metabolic acidosis Current Visit: Yes Status: Acute Plan to address problem: Acidosis improving with dialysis. (5) Acute respiratory failure with hypoxia Current Visit: Yes Status: Acute Plan to address problem: Continue respiratory management by pulmonary (6) Pneumonia due to COVID-19 virus Current Visit: Yes Status: Acute Plan to address problem: IV Dexamethasone Supplemental oxygen/Respiratory support as needed Proning as tolerated Remdesevir contra-indicated due to Kidney failure Prophylactic anticoagulation Trend inflammatory markers to assess disease progression and prognosis (7) Transaminitis Current Visit: Yes Status: Acute Plan to address problem: Hypoperfusion injury. 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 I reviewed multidisciplinary notes and discussed with staff and physicians as needed. Patient is still on 2 vasopressors -Levophed and vasopressin he is sedated on propofol and fentanyl. He is on anticoagulation with intravenous heparin. Tolerated hemodialysis yesterday with 1 L ultrafiltration. Heart rate in the 130s. Objective - Exam Narrative Exam: Patient was not examined at the bedside today due to personal protective equipment preservation during the COVID-19 pandemic. Patient is on 2 pressors now - Vital Signs Vital signs: Vital Signs - 12hr 06/24/20 06/24/20 06/24/20 22:10 22:20 22:30 Temperature Pulse Rate 121 H 118 H 113 H Respiratory 16 22 30 H Rate Blood Pressure 99/52 92/50 95/49 O2 Sat by Pulse 93 95 93 Oximetry 06/24/20 06/24/20 06/24/20 22:40 22:50 23:00 Temperature Pulse Rate 118 H 112 H 117 H Respiratory 31 H 30 H 24 Rate Blood Pressure 95/49 90/50 98/54 O2 Sat by Pulse 93 93 93 Oximetry 06/24/20 06/24/20 06/24/20 23:10 23:20 23:30 Temperature Pulse Rate 115 H 112 H 95 H Respiratory 30 H 30 H 30 H Rate Blood Pressure 98/54 94/48 92/47 O2 Sat by Pulse 93 93 93 Oximetry 06/24/20 06/24/20 06/24/20 23:40 23:50 23:55 Temperature 97.9 F Pulse Rate 112 H 113 H Respiratory 26 H 32 H Rate Blood Pressure 92/47 92/53 O2 Sat by Pulse 93 94 Oximetry 06/25/20 06/25/20 06/25/20 00:00 00:10 00:20 Temperature Pulse Rate 120 H 115 H 113 H Respiratory 28 H 30 H 24 Rate Blood Pressure 98/56 98/56 98/55 O2 Sat by Pulse 93 93 93 Oximetry 06/25/20 06/25/20 06/25/20 00:30 00:40 00:50 Temperature Pulse Rate 111 H 116 H 105 H Respiratory 25 H 27 H 21 Rate Blood Pressure 93/49 93/49 96/51 O2 Sat by Pulse 93 93 93 Oximetry 06/25/20 06/25/20 06/25/20 01:00 01:10 01:20 Temperature Pulse Rate 103 H 119 H 108 H Respiratory 28 H 22 19 Rate Blood Pressure 99/52 99/52 102/52 O2 Sat by Pulse 93 92 93 Oximetry 06/25/20 06/25/20 06/25/20 01:30 01:40 01:50 Temperature Pulse Rate 113 H 115 H 117 H Respiratory 22 17 22 Rate Blood Pressure 101/51 101/51 100/56 O2 Sat by Pulse 92 92 92 Oximetry 06/25/20 06/25/20 06/25/20 02:00 02:10 02:20 Temperature Pulse Rate 113 H 121 H 127 H Respiratory 21 30 H 14 Rate Blood Pressure 102/57 102/57 105/63 O2 Sat by Pulse 91 92 93 Oximetry 06/25/20 06/25/20 06/25/20 02:30 02:40 02:50 Temperature Pulse Rate 123 H 124 H 125 H Respiratory 21 14 21 Rate Blood Pressure 118/60 105/63 140/76 O2 Sat by Pulse 91 92 92 Oximetry 06/25/20 06/25/20 06/25/20 03:00 03:10 03:20 Temperature Pulse Rate 137 H 138 H 125 H Respiratory 23 16 26 H Rate Blood Pressure 140/76 166/88 144/70 O2 Sat by Pulse 92 91 92 Oximetry 06/25/20 06/25/20 06/25/20 03:30 03:34 03:40 Temperature 98.6 F Pulse Rate 112 H 134 H Respiratory 30 H 16 Rate Blood Pressure 121/75 121/75 O2 Sat by Pulse 91 94 Oximetry 06/25/20 06/25/20 06/25/20 03:50 04:00 04:10 Temperature Pulse Rate 132 H 131 H 133 H Respiratory 17 15 17 Rate Blood Pressure 114/66 145/73 145/73 O2 Sat by Pulse 92 92 92 Oximetry 06/25/20 06/25/20 06/25/20 04:20 04:29 04:30 Temperature Pulse Rate 134 H 134 H 134 H Respiratory 22 21 Rate Blood Pressure 152/75 160/82 160/82 O2 Sat by Pulse 93 91 91 Oximetry 06/25/20 06/25/20 06/25/20 04:40 04:50 05:00 Temperature Pulse Rate 133 H 131 H 131 H Respiratory 18 17 18 Rate Blood Pressure 160/82 143/64 122/78 O2 Sat by Pulse 93 91 92 Oximetry 06/25/20 06/25/20 06/25/20 05:10 05:20 05:30 Temperature Pulse Rate 132 H 132 H 139 H Respiratory 17 17 17 Rate Blood Pressure 143/64 164/74 165/77 O2 Sat by Pulse 92 93 92 Oximetry 06/25/20 06/25/20 06/25/20 05:40 05:50 06:00 Temperature Pulse Rate 138 H 125 H 147 H Respiratory 20 16 18 Rate Blood Pressure 122/78 165/87 164/79 O2 Sat by Pulse 93 92 91 Oximetry 06/25/20 06/25/20 06/25/20 06:10 06:20 06:30 Temperature Pulse Rate 150 H 136 H 130 H Respiratory 16 21 15 Rate Blood Pressure 142/79 129/63 118/61 O2 Sat by Pulse 90 90 91 Oximetry 06/25/20 06/25/20 06/25/20 06:40 06:50 07:00 Temperature Pulse Rate 117 H 123 H 123 H Respiratory 24 16 19 Rate Blood Pressure 118/61 102/54 99/50 O2 Sat by Pulse 90 90 91 Oximetry 06/25/20 06/25/20 06/25/20 07:10 07:20 07:30 Temperature Pulse Rate 123 H 115 H 105 H Respiratory 17 23 21 Rate Blood Pressure 99/50 110/54 117/51 O2 Sat by Pulse 93 92 92 Oximetry 06/25/20 06/25/20 06/25/20 07:40 07:50 08:00 Temperature 98.9 F Pulse Rate 122 H 111 H 110 H Respiratory 30 H 25 H 21 Rate Blood Pressure 117/51 98/49 100/53 O2 Sat by Pulse 92 92 92 Oximetry 06/25/20 06/25/20 06/25/20 08:10 08:20 08:30 Temperature Pulse Rate 109 H 113 H 111 H Respiratory 18 20 18 Rate Blood Pressure 100/53 102/49 103/49 O2 Sat by Pulse 91 91 92 Oximetry 06/25/20 06/25/20 06/25/20 08:40 08:50 09:00 Temperature Pulse Rate 110 H 111 H 110 H Respiratory 23 16 24 Rate Blood Pressure 103/49 102/55 104/58 O2 Sat by Pulse 93 92 92 Oximetry 06/25/20 09:10 Temperature Pulse Rate 111 H Respiratory 18 Rate Blood Pressure 104/58 O2 Sat by Pulse 94 Oximetry - Lab 06/25/20 03:00 06/24/20 07:03 Most recent lab results ABG pH 7.445 (7.320-7.450) 06/25/20 03:48 Calcium 7.6 mg/dL (8.4-10.2) L 06/24/20 07:03 Magnesium 2.70 mg/dL (1.7-2.3) H 06/18/20 20:33 Urine Creatinine 192.4 mg/dL (0.1-20.0) H 06/18/20 15:00 Urine Sodium 28 mmol/L 06/18/20 15:00 Medications & Allergies - Medications Allergies/Adverse Reactions: Allergies No Known Allergies Allergy (Unverified 06/17/20 14:24) Home Medications: Home Medications Medication Instructions Recorded Confirmed Last Taken Type Losartan/Hydrochlorothiazide 1 each PO QDAY 06/19/20 06/19/20 Unknown History [Losartan-Hctz 100-25 mg Tab] amLODIPine [Norvasc] 5 mg PO DAILY 06/19/20 06/19/20 Unknown History Active Medications: Generic Name Dose Route Start Last Admin Trade Name Freq PRN Reason Stop Dose Admin Acetaminophen 650 mg 06/17/20 14:17 06/19/20 06:42 Acetaminophen 325 Mg Tab PO 650 mg Q4H PRN Administration Pain MILD(1-3)/Fever >100.5/ROBERTS Lipase/Protease/Amylase 1 each 06/19/20 12:15 Lipase 10,500/Protease 25,000/Amylase 43,750 (Units) Dr Kulkarni FEEDTUBE PRN PRN For Clogged Feeding Tube Ascorbic Acid 250 mg 06/17/20 22:00 06/25/20 09:05 Ascorbic Acid 250 Mg Tab PO 250 mg BID CONNOR Administration Cholecalciferol 1,000 unit 06/18/20 10:00 06/25/20 09:03 Cholecalciferol (Vit D3) 1000 Unit (25 Mcg) Tab PO 1,000 unit DAILY CONNOR Administration Dexamethasone 6 mg 06/18/20 22:00 06/25/20 09:03 Dexamethasone 4 Mg/Ml Vial IV 06/28/20 10:01 6 mg Q12HR CONNOR Administration Docusate Sodium 100 mg 06/23/20 15:00 06/25/20 09:03 Docusate Sodium 100 Mg/10 Ml Oral Liqd FEEDTUBE 100 mg BID CONNOR Administration Famotidine 20 mg 06/20/20 11:00 06/25/20 09:03 Famotidine 20 Mg/2 Ml Inj IV 20 mg DAILY CONNOR Administration Fentanyl 50 mcg 06/18/20 01:02 06/18/20 01:22 Fentanyl 100 Mcg/2 Ml Inj IV 50 mcg Q10MIN PRN Administration ANALGESIA Heparin Sodium (Porcine) 4,500 unit 06/19/20 11:34 06/19/20 12:37 Heparin 10,000 Units/10 Ml Vial 40 unit/kg (4500 unit) 4,500 unit IV Administration Q6H PRN Anti-Xa Assay < 0.1 units/ml Heparin Sodium (Porcine) 5,000 unit 06/22/20 12:53 Heparin 10,000 Unit/1 Ml Vial IV PAM PRN hemodialysis Hydrophilic Ointment 1 applic 06/17/20 22:52 Lip Therapy Vaseline TP Q2HR PRN Dry Lips Norepinephrine 4 mg in 250 mls @ 7.5 mls/hr 06/18/20 00:00 06/24/20 09:30 Levophed Drip 4 Mg/Ns 250 Ml IV 0 mcg/min TITR CONNOR 0 mls/hr Titration Protocol 2 MCG/MIN Propofol 1,000 mg in 100 mls @ 3.402 mls/hr 06/18/20 01:00 06/25/20 06:05 Diprivan 10 Mg/Ml IV 20 mcg/kg/min TITR CONNOR 13.608 mls/hr Titration Protocol 5 MCG/KG/MIN Fentanyl Citrate 2,000 mcg in 100 mls @ 5.67 mls/hr 06/18/20 02:00 06/25/20 05:08 Fentanyl Drip Premix IV 2 mcg/kg/hr TITR CONNOR 11.34 mls/hr Administration Protocol 1 MCG/KG/HR Vasopressin 20 unit/ Sodium 101 mls @ 9.09 mls/hr 06/18/20 10:00 06/24/20 18:05 Chloride IV 0 units/min TITR CONNOR 0 mls/hr Titration Protocol 0.03 UNITS/MIN Sodium Chloride 500 mls @ 1 mls/hr 06/18/20 09:38 06/19/20 21:37 Nacl 0.9% 500 Ml IV 0 mls/hr DIRECT PRN Infusion ARTERIAL LINE FLUSH Heparin Sodium/Sodium Chloride 25,000 unit in 500 mls @ 30 mls/hr 06/19/20 12:00 06/25/20 02:33 Heparin/ 0.45% Nacl-25,000 Unit/500 Ml IV 1,350 units/hr TITR CONNOR 27 mls/hr Administration Protocol 1,500 UNITS/HR Cefepime HCl 2 gm in 100 mls @ 200 mls/hr 06/21/20 10:00 06/25/20 09:04 Cefepime/Ns 2 Gm/100 Ml IV 06/27/20 10:29 200 mls/hr Q24HR CONNOR Administration Protocol Sodium Chloride 100 mls @ 999 mls/hr 06/22/20 12:53 Nacl 0.9% IV PAM PRN Hypotension Amiodarone HCl 900 mg/ 500 mls @ 33.333 mls/hr 06/24/20 11:15 06/24/20 17:20 Dextrose IV 0.5 mg/min DIRECT CONNOR 16.667 mls/hr Infusion Protocol 1 MG/MIN Insulin Human Regular 0 units 06/18/20 12:00 06/25/20 05:50 Insulin Regular, Human 100 Units/1 Ml SUB-Q Not Given Q6HR CONNOR Protocol Lorazepam 1 mg 06/17/20 17:05 06/17/20 17:10 Lorazepam 2 Mg/Ml Vial IV 1 mg BID PRN Administration Anxiety Metoclopramide HCl 5 mg 06/22/20 13:00 06/25/20 09:05 Metoclopramide 10 Mg/2 Ml Inj IV 5 mg Q6H CONNOR Administration Multi-Ingred Cream/Lotion/Oil/Oint 1 applic 06/17/20 22:52 Mineral Oil/Petrolatum, White Ophth Oint 3.5 Gm OU Q4HR PRN Dry Eye(s) Ondansetron HCl 4 mg 06/17/20 14:17 Ondansetron 4 Mg/2 Ml Inj IV Q8H PRN Nausea And Vomiting Polyethylene Glycol 17 gm 06/23/20 15:00 06/25/20 09:05 Polyethylene Glycol 3350 17 Gm Powder PO 17 gm QDAY CONNOR Administration Simple Syrup 15 ml 06/19/20 12:15 Simple Syrup 15 Ml FEEDTUBE PRN PRN Hypoglycemia Simple Syrup 30 ml 06/19/20 12:15 Simple Syrup 15 Ml FEEDTUBE PRN PRN Hypoglycemia Sodium Bicarbonate 325 mg 06/19/20 12:15 Sodium Bicarbonate 325 Mg Tab FEEDTUBE PRN PRN For Clogged Feeding Tube Sodium Chloride 10 ml 06/17/20 22:00 06/25/20 09:05 Sodium Chloride 0.9% 10 Ml Flush Syringe IV 10 ml BID CONNOR Administration Sodium Chloride 10 ml 06/17/20 14:17 Sodium Chloride 0.9% 10 Ml Flush Syringe IV PRN PRN LINE FLUSH Zinc Sulfate 220 mg 06/17/20 22:00 06/25/20 09:03 Zinc Sulfate 220 Mg Cap PO 220 mg BID CONNOR Administration
--- NOTE | 2020-06-25 12:28 | Progress Note ---
Assessment and Plan Acute hypoxemic respiratory failure due to COVID-19 Severe COVID infection Severe Sepsis with shock Bilateral pneumonia Acute kidney injury (GIRISH) with acute tubular necrosis (ATN) Elevated liver enzymes Obesity - continue daily SAT's & SBT's as tolerated - to transition to oral amiodarone - complete antibiotics per ID, on going fevers & hypotension (Cefepime) - continue care as below otherwise; - continue tube feeds and advance to goal rate as tolerated - continue HD/UF per nephrology team for toxin and volume clearance - continue bowel regimen - rate control per cardiology team for afib RVR - Continue to wean supplemental oxygen for O2 sats >92% - Monitor blood pressure closely while optimizing sedation,wean vasopressor support for MAP > 65 mmHg - Critical care prone positioning - Agitation management, keep RASS -1 to -12 now off proning - VAP bundle addressed, aspiration precautions HOB >40 - continue lung protective strategies, permissive hypercapnic acceptable. - continue bronchodilators with pulmonary hygiene per RT - wean per pulmonary driven protocols otherwise - accuchecks with glycemic control per SSI (While critically ill target blood glucose of 140-180 mg/dL; avoid hypoglycemia) - sedation prn for target RASS -1 to -2 - continue enteral nutritional support at goal rate as tolerated - Monitor liver function test ,avoid hepatotoxic agents - azotemia per nephrology rec's - Avoid nephrotoxins, renally dose all medications, conservative fluid management - continue to avoid benzodiazepines, reduce the possibility of delirium, - prn analgesia per CPOT score - Maintenance of sleep-wake cycle, avoid delirium - Stress ulcer prophylaxis, Famotidine - PT/OT/ROM exercises - Mobility protocols for pressure ulcer prevention - CXR, ABG in am - CBC, CMP in am - Supportive transfusions to keep HgB >7g/dL - Monitor hemodynamics closely - continue other care per attending / other consultants COVID SPECIFIC INTERVENTIONS - continue steroids: Dexamethasone - continue with Remdesivir - monitor inflammatory markers - ferritin, D-dimer, CRP, LDH every 3 days per facility protocol - continue anticoagulation per System Protocol based on d-dimer - continue contact and airborne isolation CONDITION: CRITICAL PROGNOSIS: GUARDED CODE STATUS: FULL CODE The high probability of a clinically significant, sudden or life-threatening deterioration of the [respiratory, cardiovascular, hematologic & neurologic] system(s) required my full and direct attention, intervention and personal management. The aggregate critical care time was [35] minutes without overlap. Time includes spent on; [x] Data Review and interpretation [x] Patient assessment and monitoring of vital signs [x] Documentation [x] Medication orders and management He was evaluated in the context of the global COVID-19 pandemic, which necessitated consideration that the patient might be at risk for infection with the virus that causes COVID-19. Institutional protocols and algorithms that per tain to the evaluation of patients at risk for COVID-19 are in a state of rapid change based on information released by regulatory bodies including the CDC and federal and state organizations. These policies and algorithms were followed during the patient's care in the ICU Please note that these policies, procedures and recommendations changed on a rapid basis. Subjective Date of service: 06/25/20 Principal diagnosis: ARF/Septic Shock/COVID-19 PNA, AF with RVR Interval history: Patient is seen today for: Ac hypoxemic respiratory failure; COVID-19; Severe Sepsis with shock; Zackery. pneumonia; GIRISH; Elevated liver enzymes; Obesity Seen and examined at bedside; 24hour events reviewed; nursing and respiratory care staff consulted; no adverse overnight events reported to me; resting in bed; remains on MVS; FiO2 remains at 60%; weaned off vasopressors; sedated; agitated during SAT; no emesis or overt aspiration; remains on amiodarone Objective Vital Signs - 12hr 06/25/20 06/25/20 06/25/20 00:30 00:40 00:50 Temperature Pulse Rate 111 H 116 H 105 H Respiratory 25 H 27 H 21 Rate Blood Pressure 93/49 93/49 96/51 O2 Sat by Pulse 93 93 93 Oximetry 06/25/20 06/25/20 06/25/20 01:00 01:10 01:20 Temperature Pulse Rate 103 H 119 H 108 H Respiratory 28 H 22 19 Rate Blood Pressure 99/52 99/52 102/52 O2 Sat by Pulse 93 92 93 Oximetry 06/25/20 06/25/20 06/25/20 01:30 01:40 01:50 Temperature Pulse Rate 113 H 115 H 117 H Respiratory 22 17 22 Rate Blood Pressure 101/51 101/51 100/56 O2 Sat by Pulse 92 92 92 Oximetry 06/25/20 06/25/20 06/25/20 02:00 02:10 02:20 Temperature Pulse Rate 113 H 121 H 127 H Respiratory 21 30 H 14 Rate Blood Pressure 102/57 102/57 105/63 O2 Sat by Pulse 91 92 93 Oximetry 06/25/20 06/25/20 06/25/20 02:30 02:40 02:50 Temperature Pulse Rate 123 H 124 H 125 H Respiratory 21 14 21 Rate Blood Pressure 118/60 105/63 140/76 O2 Sat by Pulse 91 92 92 Oximetry 06/25/20 06/25/20 06/25/20 03:00 03:10 03:20 Temperature Pulse Rate 137 H 138 H 125 H Respiratory 23 16 26 H Rate Blood Pressure 140/76 166/88 144/70 O2 Sat by Pulse 92 91 92 Oximetry 06/25/20 06/25/20 06/25/20 03:30 03:34 03:40 Temperature 98.6 F Pulse Rate 112 H 134 H Respiratory 30 H 16 Rate Blood Pressure 121/75 121/75 O2 Sat by Pulse 91 94 Oximetry 06/25/20 06/25/20 06/25/20 03:50 04:00 04:10 Temperature Pulse Rate 132 H 131 H 133 H Respiratory 17 15 17 Rate Blood Pressure 114/66 145/73 145/73 O2 Sat by Pulse 92 92 92 Oximetry 06/25/20 06/25/20 06/25/20 04:20 04:29 04:30 Temperature Pulse Rate 134 H 134 H 134 H Respiratory 22 21 Rate Blood Pressure 152/75 160/82 160/82 O2 Sat by Pulse 93 91 91 Oximetry 06/25/20 06/25/20 06/25/20 04:40 04:50 05:00 Temperature Pulse Rate 133 H 131 H 131 H Respiratory 18 17 18 Rate Blood Pressure 160/82 143/64 122/78 O2 Sat by Pulse 93 91 92 Oximetry 06/25/20 06/25/20 06/25/20 05:10 05:20 05:30 Temperature Pulse Rate 132 H 132 H 139 H Respiratory 17 17 17 Rate Blood Pressure 143/64 164/74 165/77 O2 Sat by Pulse 92 93 92 Oximetry 06/25/20 06/25/20 06/25/20 05:40 05:50 06:00 Temperature Pulse Rate 138 H 125 H 147 H Respiratory 20 16 18 Rate Blood Pressure 122/78 165/87 164/79 O2 Sat by Pulse 93 92 91 Oximetry 06/25/20 06/25/20 06/25/20 06:10 06:20 06:30 Temperature Pulse Rate 150 H 136 H 130 H Respiratory 16 21 15 Rate Blood Pressure 142/79 129/63 118/61 O2 Sat by Pulse 90 90 91 Oximetry 06/25/20 06/25/20 06/25/20 06:40 06:50 07:00 Temperature Pulse Rate 117 H 123 H 123 H Respiratory 24 16 19 Rate Blood Pressure 118/61 102/54 99/50 O2 Sat by Pulse 90 90 91 Oximetry 06/25/20 06/25/20 06/25/20 07:10 07:20 07:30 Temperature Pulse Rate 123 H 115 H 105 H Respiratory 17 23 21 Rate Blood Pressure 99/50 110/54 117/51 O2 Sat by Pulse 93 92 92 Oximetry 06/25/20 06/25/20 06/25/20 07:40 07:50 08:00 Temperature 98.9 F Pulse Rate 122 H 111 H 110 H Respiratory 30 H 25 H 21 Rate Blood Pressure 117/51 98/49 100/53 O2 Sat by Pulse 92 92 92 Oximetry 06/25/20 06/25/20 06/25/20 08:10 08:20 08:30 Temperature Pulse Rate 109 H 113 H 111 H Respiratory 18 20 18 Rate Blood Pressure 100/53 102/49 103/49 O2 Sat by Pulse 91 91 92 Oximetry 06/25/20 06/25/20 06/25/20 08:40 08:50 09:00 Temperature Pulse Rate 110 H 111 H 110 H Respiratory 23 16 24 Rate Blood Pressure 103/49 102/55 104/58 O2 Sat by Pulse 93 92 92 Oximetry 06/25/20 09:10 Temperature Pulse Rate 111 H Respiratory 18 Rate Blood Pressure 104/58 O2 Sat by Pulse 94 Oximetry Constitutional: no acute distress, other (morbidly obese, atraumatic, normocephalic, mild resp distress, orally intuabted) Eyes: non-icteric ENT: oropharynx moist, other (ETT 24 cm TROY) Neck: supple, no lymphadenopathy, other (Large , short neck) Effort: mildly labored Ascultation: Bilateral: diminished breath sounds, rhonchi Percussion: Bilateral: not dull Cardiovascular: irregular rhythm, other (S1,S2) Gastrointestinal: normoactive bowel sounds, non-distended Integumentary: rash, other (Femoral CVC, Newell catheter) Extremities: no edema, pink and warm, pulses normal, no ischemia or petechiae Neurologic: pupils equal and round, other (unable to assess, sedated) Psychiatric: other (unable to assess, sedated) CBC and BMP: 06/25/20 03:00 06/24/20 07:03 ABG, PT/INR, D-dimer: ABG ABG pH 7.445 (7.320-7.450) 06/25/20 03:48 POC ABG pCO2 29.4 mmHg (32.0-48.0) L 06/25/20 03:48 POC ABG pO2 67.1 mmHg (83-108) L 06/25/20 03:48 POC ABG HCO3 19.7 06/25/20 03:48 PT/INR, D-dimer PT 16.4 Sec. (12.2-14.9) H 06/19/20 12:30 INR 1.32 (0.87-1.13) H 06/19/20 12:30 D-Dimer 939.89 ng/mlDDU (0-234) H 06/17/20 14:48 Abnormal lab findings: Abnormal Labs 06/17/20 06/17/20 06/17/20 12:33 12:33 12:33 WBC 19.5 H RBC 5.18 H Hgb 15.5 H Hct RDW Lymph % (Auto) 3.8 L Lymph # (Auto) 0.7 L Cherry # (Auto) Seg Neuts % (Manual) 99.0 H Lymphocytes % (Manual) 1.0 L Nucleated RBC % Seg Neutrophils # 18.2 H Seg Neutrophils # Man 19.3 H Lymphocytes # (Manual) 0.2 L Monocytes # (Manual) PT 16.5 H INR 1.33 H D-Dimer 1025.04 H Heparin Anti-Xa Level ABG pH POC ABG pCO2 POC ABG pO2 ABG Hemoglobin ABG Oxyhemoglobin ABG Sodium ABG Potassium ABG Chloride ABG Glucose Carboxyhemoglobin Sodium 130 L Potassium 3.4 L Chloride 95.0 L Carbon Dioxide BUN 21 H Creatinine Glucose 137 H POC Glucose Lactic Acid Calcium 7.9 L Magnesium Ferritin AST 84 H ALT 67 H Lactate Dehydrogenase 437 H Total Creatine Kinase 310 H C-Reactive Protein 27.90 H Total Protein Albumin 2.9 L Triglycerides Arterial Blood Glucose Arterial Blood Ionized Calcium Urine Creatinine Urine Chloride Vancomycin Trough Coronavirus (PCR) 06/17/20 06/17/20 06/17/20 12:33 12:33 14:48 WBC RBC Hgb Hct RDW Lymph % (Auto) Lymph # (Auto) Cherry # (Auto) Seg Neuts % (Manual) Lymphocytes % (Manual) Nucleated RBC % Seg Neutrophils # Seg Neutrophils # Man Lymphocytes # (Manual) Monocytes # (Manual) PT INR D-Dimer Heparin Anti-Xa Level ABG pH POC ABG pCO2 POC ABG pO2 ABG Hemoglobin ABG Oxyhemoglobin ABG Sodium ABG Potassium ABG Chloride ABG Glucose Carboxyhemoglobin Sodium Potassium Chloride Carbon Dioxide BUN Creatinine Glucose POC Glucose Lactic Acid 2.50 H* 2.20 H* Calcium Magnesium Ferritin 2297.0 H AST ALT Lactate Dehydrogenase Total Creatine Kinase C-Reactive Protein Total Protein Albumin Triglycerides Arterial Blood Glucose Arterial Blood Ionized Calcium Urine Creatinine Urine Chloride Vancomycin Trough Coronavirus (PCR) 06/17/20 06/17/20 06/17/20 14:48 14:48 14:48 WBC RBC Hgb Hct RDW Lymph % (Auto) Lymph # (Auto) Cherry # (Auto) Seg Neuts % (Manual) Lymphocytes % (Manual) Nucleated RBC % Seg Neutrophils # Seg Neutrophils # Man Lymphocytes # (Manual) Monocytes # (Manual) PT INR D-Dimer 939.89 H Heparin Anti-Xa Level ABG pH POC ABG pCO2 POC ABG pO2 ABG Hemoglobin ABG Oxyhemoglobin ABG Sodium ABG Potassium ABG Chloride ABG Glucose Carboxyhemoglobin Sodium Potassium Chloride Carbon Dioxide BUN Creatinine Glucose 141 H POC Glucose Lactic Acid Calcium Magnesium Ferritin > 2000.0 H AST ALT Lactate Dehydrogenase 503 H Total Creatine Kinase C-Reactive Protein 24.70 H Total Protein Albumin Triglycerides Arterial Blood Glucose Arterial Blood Ionized Calcium Urine Creatinine Urine Chloride Vancomycin Trough Coronavirus (PCR) 06/17/20 06/17/20 06/17/20 16:54 19:39 23:43 WBC RBC Hgb Hct RDW Lymph % (Auto) Lymph # (Auto) Cherry # (Auto) Seg Neuts % (Manual) Lymphocytes % (Manual) Nucleated RBC % Seg Neutrophils # Seg Neutrophils # Man Lymphocytes # (Manual) Monocytes # (Manual) PT INR D-Dimer Heparin Anti-Xa Level ABG pH 7.571 H POC ABG pCO2 24.3 L POC ABG pO2 41.6 L ABG Hemoglobin ABG Oxyhemoglobin 84.0 L ABG Sodium 131.0 L ABG Potassium ABG Chloride ABG Glucose 163 H Carboxyhemoglobin Sodium Potassium Chloride Carbon Dioxide BUN Creatinine Glucose POC Glucose 185 H Lactic Acid 2.10 H* Calcium Magnesium Ferritin AST ALT Lactate Dehydrogenase Total Creatine Kinase C-Reactive Protein Total Protein Albumin Triglycerides Arterial Blood Glucose 163 H Arterial Blood Ionized Calcium 4.4 L Urine Creatinine Urine Chloride Vancomycin Trough Coronavirus (PCR) 06/18/20 06/18/20 06/18/20 00:17 00:23 03:55 WBC RBC Hgb Hct RDW Lymph % (Auto) Lymph # (Auto) Cherry # (Auto) Seg Neuts % (Manual) Lymphocytes % (Manual) Nucleated RBC % Seg Neutrophils # Seg Neutrophils # Man Lymphocytes # (Manual) Monocytes # (Manual) PT INR D-Dimer Heparin Anti-Xa Level ABG pH POC ABG pCO2 POC ABG pO2 56.5 L 48.3 L ABG Hemoglobin ABG Oxyhemoglobin 86.3 L 81.7 L ABG Sodium 132.9 L 131.0 L ABG Potassium ABG Chloride ABG Glucose 189 H 161 H Carboxyhemoglobin 0.4 L Sodium Potassium Chloride Carbon Dioxide BUN Creatinine Glucose POC Glucose Lactic Acid 3.80 H* Calcium Magnesium Ferritin AST ALT Lactate Dehydrogenase Total Creatine Kinase C-Reactive Protein Total Protein Albumin Triglycerides Arterial Blood Glucose 189 H 161 H Arterial Blood Ionized Calcium 4.3 L 4.2 L Urine Creatinine Urine Chloride Vancomycin Trough Coronavirus (PCR) 06/18/20 06/18/20 06/18/20 05:39 05:39 05:39 WBC 26.2 H RBC Hgb Hct RDW Lymph % (Auto) Lymph # (Auto) Cherry # (Auto) Seg Neuts % (Manual) 90.0 H Lymphocytes % (Manual) 5.0 L Nucleated RBC % Seg Neutrophils # Seg Neutrophils # Man 23.6 H Lymphocytes # (Manual) Monocytes # (Manual) 1.3 H PT INR D-Dimer Heparin Anti-Xa Level ABG pH POC ABG pCO2 POC ABG pO2 ABG Hemoglobin ABG Oxyhemoglobin ABG Sodium ABG Potassium ABG Chloride ABG Glucose Carboxyhemoglobin Sodium 135 L Potassium Chloride 97.5 L Carbon Dioxide 21 L BUN 39 H Creatinine 1.7 H D Glucose 168 H POC Glucose Lactic Acid 3.40 H* Calcium 7.2 L Magnesium Ferritin AST ALT Lactate Dehydrogenase Total Creatine Kinase C-Reactive Protein Total Protein Albumin Triglycerides Arterial Blood Glucose Arterial Blood Ionized Calcium Urine Creatinine Urine Chloride Vancomycin Trough Coronavirus (PCR) 06/18/20 06/18/20 06/18/20 07:24 09:00 10:10 WBC RBC Hgb Hct RDW Lymph % (Auto) Lymph # (Auto) Cherry # (Auto) Seg Neuts % (Manual) Lymphocytes % (Manual) Nucleated RBC % Seg Neutrophils # Seg Neutrophils # Man Lymphocytes # (Manual) Monocytes # (Manual) PT INR D-Dimer Heparin Anti-Xa Level ABG pH POC ABG pCO2 POC ABG pO2 ABG Hemoglobin ABG Oxyhemoglobin ABG Sodium ABG Potassium ABG Chloride ABG Glucose Carboxyhemoglobin Sodium Potassium Chloride Carbon Dioxide BUN Creatinine Glucose POC Glucose Lactic Acid 2.90 H* 3.20 H* Calcium Magnesium Ferritin AST ALT Lactate Dehydrogenase Total Creatine Kinase C-Reactive Protein Total Protein Albumin Triglycerides Arterial Blood Glucose Arterial Blood Ionized Calcium Urine Creatinine Urine Chloride Vancomycin Trough Coronavirus (PCR) Positive A 06/18/20 06/18/20 06/18/20 11:58 14:43 15:00 WBC RBC Hgb Hct RDW Lymph % (Auto) Lymph # (Auto) Cherry # (Auto) Seg Neuts % (Manual) Lymphocytes % (Manual) Nucleated RBC % Seg Neutrophils # Seg Neutrophils # Man Lymphocytes # (Manual) Monocytes # (Manual) PT INR D-Dimer Heparin Anti-Xa Level ABG pH 7.303 L POC ABG pCO2 POC ABG pO2 82.3 L ABG Hemoglobin ABG Oxyhemoglobin ABG Sodium 135.3 L ABG Potassium ABG Chloride ABG Glucose 215 H Carboxyhemoglobin 0.3 L Sodium Potassium Chloride Carbon Dioxide BUN Creatinine Glucose POC Glucose 209 H Lactic Acid Calcium Magnesium Ferritin AST ALT Lactate Dehydrogenase Total Creatine Kinase C-Reactive Protein Total Protein Albumin Triglycerides Arterial Blood Glucose 215 H Arterial Blood Ionized Calcium 4.2 L Urine Creatinine 192.4 H Urine Chloride 31.1 L Vancomycin Trough Coronavirus (PCR) 06/18/20 06/18/20 06/18/20 17:16 19:44 20:33 WBC RBC Hgb Hct RDW Lymph % (Auto) Lymph # (Auto) Cherry # (Auto) Seg Neuts % (Manual) Lymphocytes % (Manual) Nucleated RBC % Seg Neutrophils # Seg Neutrophils # Man Lymphocytes # (Manual) Monocytes # (Manual) PT INR D-Dimer Heparin Anti-Xa Level ABG pH POC ABG pCO2 POC ABG pO2 ABG Hemoglobin ABG Oxyhemoglobin ABG Sodium ABG Potassium ABG Chloride ABG Glucose Carboxyhemoglobin Sodium Potassium Chloride Carbon Dioxide BUN Creatinine Glucose POC Glucose 182 H Lactic Acid 3.00 H* Calcium Magnesium 2.70 H Ferritin AST ALT Lactate Dehydrogenase Total Creatine Kinase C-Reactive Protein Total Protein Albumin Triglycerides Arterial Blood Glucose Arterial Blood Ionized Calcium Urine Creatinine Urine Chloride Vancomycin Trough Coronavirus (PCR) 06/18/20 06/19/20 06/19/20 23:43 04:00 04:00 WBC 31.6 H RBC Hgb Hct RDW Lymph % (Auto) Lymph # (Auto) Cherry # (Auto) Seg Neuts % (Manual) 98.0 H Lymphocytes % (Manual) 0.5 L Nucleated RBC % Seg Neutrophils # Seg Neutrophils # Man 31.0 H Lymphocytes # (Manual) 0.2 L Monocytes # (Manual) PT INR D-Dimer Heparin Anti-Xa Level ABG pH POC ABG pCO2 POC ABG pO2 ABG Hemoglobin ABG Oxyhemoglobin ABG Sodium ABG Potassium ABG Chloride ABG Glucose Carboxyhemoglobin Sodium Potassium Chloride Carbon Dioxide BUN 56 H Creatinine 1.6 H Glucose 176 H POC Glucose 149 H Lactic Acid Calcium 7.0 L Magnesium Ferritin AST 244 H ALT 159 H Lactate Dehydrogenase Total Creatine Kinase C-Reactive Protein Total Protein 4.9 L D Albumin 2.5 L Triglycerides Arterial Blood Glucose Arterial Blood Ionized Calcium Urine Creatinine Urine Chloride Vancomycin Trough Coronavirus (PCR) 06/19/20 06/19/20 06/19/20 04:00 05:44 11:42 WBC RBC Hgb Hct RDW Lymph % (Auto) Lymph # (Auto) Cherry # (Auto) Seg Neuts % (Manual) Lymphocytes % (Manual) Nucleated RBC % Seg Neutrophils # Seg Neutrophils # Man Lymphocytes # (Manual) Monocytes # (Manual) PT INR D-Dimer Heparin Anti-Xa Level ABG pH 7.265 L POC ABG pCO2 51.8 H POC ABG pO2 65.1 L ABG Hemoglobin ABG Oxyhemoglobin ABG Sodium ABG Potassium ABG Chloride ABG Glucose 184 H Carboxyhemoglobin Sodium Potassium Chloride Carbon Dioxide BUN Creatinine Glucose POC Glucose 156 H 191 H Lactic Acid Calcium Magnesium Ferritin AST ALT Lactate Dehydrogenase Total Creatine Kinase C-Reactive Protein Total Protein Albumin Triglycerides Arterial Blood Glucose 184 H Arterial Blood Ionized Calcium 4.3 L Urine Creatinine Urine Chloride Vancomycin Trough Coronavirus (PCR) 06/19/20 06/19/20 06/19/20 12:30 17:16 18:36 WBC RBC Hgb Hct RDW Lymph % (Auto) Lymph # (Auto) Cherry # (Auto) Seg Neuts % (Manual) Lymphocytes % (Manual) Nucleated RBC % Seg Neutrophils # Seg Neutrophils # Man Lymphocytes # (Manual) Monocytes # (Manual) PT 16.4 H INR 1.32 H D-Dimer Heparin Anti-Xa Level ABG pH 7.088 L POC ABG pCO2 78.1 H POC ABG pO2 208.3 H ABG Hemoglobin ABG Oxyhemoglobin 98.3 H ABG Sodium ABG Potassium 5.0 H ABG Chloride ABG Glucose 182 H Carboxyhemoglobin 0.4 L Sodium Potassium Chloride Carbon Dioxide BUN Creatinine Glucose POC Glucose 154 H Lactic Acid Calcium Magnesium Ferritin AST ALT Lactate Dehydrogenase Total Creatine Kinase C-Reactive Protein Total Protein Albumin Triglycerides Arterial Blood Glucose 182 H Arterial Blood Ionized Calcium 4.3 L Urine Creatinine Urine Chloride Vancomycin Trough Coronavirus (PCR) 06/19/20 06/20/20 06/20/20 23:32 03:00 05:19 WBC RBC Hgb Hct RDW Lymph % (Auto) Lymph # (Auto) Cherry # (Auto) Seg Neuts % (Manual) Lymphocytes % (Manual) Nucleated RBC % Seg Neutrophils # Seg Neutrophils # Man Lymphocytes # (Manual) Monocytes # (Manual) PT INR D-Dimer Heparin Anti-Xa Level 0.77 H ABG pH POC ABG pCO2 POC ABG pO2 ABG Hemoglobin ABG Oxyhemoglobin ABG Sodium ABG Potassium ABG Chloride ABG Glucose Carboxyhemoglobin Sodium Potassium Chloride Carbon Dioxide BUN Creatinine Glucose POC Glucose 201 H 190 H Lactic Acid Calcium Magnesium Ferritin AST ALT Lactate Dehydrogenase Total Creatine Kinase C-Reactive Protein Total Protein Albumin Triglycerides Arterial Blood Glucose Arterial Blood Ionized Calcium Urine Creatinine Urine Chloride Vancomycin Trough Coronavirus (PCR) 06/20/20 06/20/20 06/20/20 08:25 08:25 11:36 WBC RBC Hgb Hct RDW Lymph % (Auto) Lymph # (Auto) Cherry # (Auto) Seg Neuts % (Manual) Lymphocytes % (Manual) Nucleated RBC % Seg Neutrophils # Seg Neutrophils # Man Lymphocytes # (Manual) Monocytes # (Manual) PT INR D-Dimer Heparin Anti-Xa Level ABG pH POC ABG pCO2 POC ABG pO2 ABG Hemoglobin ABG Oxyhemoglobin ABG Sodium ABG Potassium ABG Chloride ABG Glucose Carboxyhemoglobin Sodium 135 L Potassium 5.4 H Chloride 109.2 H Carbon Dioxide 19 L BUN 68 H Creatinine 2.5 H D Glucose 201 H POC Glucose 184 H Lactic Acid Calcium 5.5 L* D Magnesium Ferritin AST 123 H ALT 86 H Lactate Dehydrogenase Total Creatine Kinase C-Reactive Protein Total Protein 4.6 L Albumin 1.5 L Triglycerides Arterial Blood Glucose Arterial Blood Ionized Calcium Urine Creatinine Urine Chloride Vancomycin Trough 22.7 H Coronavirus (PCR) 06/20/20 06/20/20 06/20/20 11:40 17:28 20:00 WBC RBC Hgb Hct RDW Lymph % (Auto) Lymph # (Auto) Cherry # (Auto) Seg Neuts % (Manual) Lymphocytes % (Manual) Nucleated RBC % Seg Neutrophils # Seg Neutrophils # Man Lymphocytes # (Manual) Monocytes # (Manual) PT INR D-Dimer Heparin Anti-Xa Level 0.89 H ABG pH 7.099 L POC ABG pCO2 61.1 H POC ABG pO2 ABG Hemoglobin ABG Oxyhemoglobin ABG Sodium ABG Potassium 5.0 H ABG Chloride 111.0 H ABG Glucose 200 H Carboxyhemoglobin 0.4 L Sodium Potassium Chloride Carbon Dioxide BUN Creatinine Glucose POC Glucose 165 H Lactic Acid Calcium Magnesium Ferritin AST ALT Lactate Dehydrogenase Total Creatine Kinase C-Reactive Protein Total Protein Albumin Triglycerides Arterial Blood Glucose 200 H Arterial Blood Ionized Calcium 4.2 L Urine Creatinine Urine Chloride Vancomycin Trough Coronavirus (PCR) 06/20/20 06/21/20 06/21/20 23:29 05:00 05:20 WBC RBC Hgb Hct RDW Lymph % (Auto) Lymph # (Auto) Cherry # (Auto) Seg Neuts % (Manual) Lymphocytes % (Manual) Nucleated RBC % Seg Neutrophils # Seg Neutrophils # Man Lymphocytes # (Manual) Monocytes # (Manual) PT INR D-Dimer Heparin Anti-Xa Level ABG pH POC ABG pCO2 POC ABG pO2 ABG Hemoglobin ABG Oxyhemoglobin ABG Sodium ABG Potassium ABG Chloride ABG Glucose Carboxyhemoglobin Sodium Potassium Chloride 112.0 H Carbon Dioxide 20 L BUN 92 H Creatinine 3.9 H D Glucose 214 H POC Glucose 145 H 191 H Lactic Acid Calcium 6.5 L D Magnesium Ferritin AST 98 H ALT 84 H Lactate Dehydrogenase Total Creatine Kinase C-Reactive Protein Total Protein 4.6 L Albumin 2.1 L Triglycerides 180 H Arterial Blood Glucose Arterial Blood Ionized Calcium Urine Creatinine Urine Chloride Vancomycin Trough Coronavirus (PCR) 06/21/20 06/21/20 06/21/20 08:56 11:12 12:43 WBC RBC Hgb Hct RDW Lymph % (Auto) Lymph # (Auto) Cherry # (Auto) Seg Neuts % (Manual) Lymphocytes % (Manual) Nucleated RBC % Seg Neutrophils # Seg Neutrophils # Man Lymphocytes # (Manual) Monocytes # (Manual) PT INR D-Dimer Heparin Anti-Xa Level 0.28 L ABG pH 7.184 L POC ABG pCO2 48.3 H POC ABG pO2 172.1 H ABG Hemoglobin ABG Oxyhemoglobin 98.7 H ABG Sodium ABG Potassium 4.9 H ABG Chloride 112.0 H ABG Glucose 196 H Carboxyhemoglobin 0.2 L Sodium Potassium Chloride Carbon Dioxide BUN Creatinine Glucose POC Glucose 177 H Lactic Acid Calcium Magnesium Ferritin AST ALT Lactate Dehydrogenase Total Creatine Kinase C-Reactive Protein Total Protein Albumin Triglycerides Arterial Blood Glucose 196 H Arterial Blood Ionized Calcium 4.1 L Urine Creatinine Urine Chloride Vancomycin Trough Coronavirus (PCR) 06/21/20 06/21/20 06/22/20 16:31 Unknown 00:12 WBC RBC Hgb Hct RDW Lymph % (Auto) Lymph # (Auto) Cherry # (Auto) Seg Neuts % (Manual) Lymphocytes % (Manual) Nucleated RBC % Seg Neutrophils # Seg Neutrophils # Man Lymphocytes # (Manual) Monocytes # (Manual) PT INR D-Dimer Heparin Anti-Xa Level 0.78 H ABG pH POC ABG pCO2 POC ABG pO2 ABG Hemoglobin ABG Oxyhemoglobin ABG Sodium ABG Potassium ABG Chloride ABG Glucose Carboxyhemoglobin Sodium Potassium Chloride Carbon Dioxide BUN Creatinine Glucose POC Glucose 150 H 173 H Lactic Acid Calcium Magnesium Ferritin AST ALT Lactate Dehydrogenase Total Creatine Kinase C-Reactive Protein Total Protein Albumin Triglycerides Arterial Blood Glucose Arterial Blood Ionized Calcium Urine Creatinine Urine Chloride Vancomycin Trough Coronavirus (PCR) 06/22/20 06/22/20 06/22/20 04:00 05:04 05:30 WBC 33.9 H RBC Hgb 11.7 L Hct 35.2 L RDW 15.8 H Lymph % (Auto) Lymph # (Auto) Cherry # (Auto) Seg Neuts % (Manual) 93.0 H Lymphocytes % (Manual) 5.0 L Nucleated RBC % Seg Neutrophils # Seg Neutrophils # Man 31.5 H Lymphocytes # (Manual) Monocytes # (Manual) PT INR D-Dimer Heparin Anti-Xa Level ABG pH 7.169 L POC ABG pCO2 POC ABG pO2 ABG Hemoglobin ABG Oxyhemoglobin ABG Sodium ABG Potassium 5.1 H ABG Chloride 112.0 H ABG Glucose 186 H Carboxyhemoglobin 0.3 L Sodium Potassium Chloride Carbon Dioxide BUN Creatinine Glucose POC Glucose 161 H Lactic Acid Calcium Magnesium Ferritin AST ALT Lactate Dehydrogenase Total Creatine Kinase C-Reactive Protein Total Protein Albumin Triglycerides Arterial Blood Glucose 186 H Arterial Blood Ionized Calcium 4.1 L Urine Creatinine Urine Chloride Vancomycin Trough Coronavirus (PCR) 06/22/20 06/22/20 06/22/20 05:30 11:39 13:27 WBC RBC Hgb Hct RDW Lymph % (Auto) Lymph # (Auto) Cherry # (Auto) Seg Neuts % (Manual) Lymphocytes % (Manual) Nucleated RBC % Seg Neutrophils # Seg Neutrophils # Man Lymphocytes # (Manual) Monocytes # (Manual) PT INR D-Dimer Heparin Anti-Xa Level ABG pH POC ABG pCO2 POC ABG pO2 ABG Hemoglobin ABG Oxyhemoglobin ABG Sodium ABG Potassium ABG Chloride ABG Glucose Carboxyhemoglobin Sodium Potassium 5.7 H Chloride 111.3 H Carbon Dioxide 18 L BUN 112 H Creatinine 5.0 H Glucose 173 H POC Glucose 172 H 176 H Lactic Acid Calcium 6.7 L Magnesium Ferritin AST ALT Lactate Dehydrogenase Total Creatine Kinase C-Reactive Protein Total Protein Albumin Triglycerides Arterial Blood Glucose Arterial Blood Ionized Calcium Urine Creatinine Urine Chloride Vancomycin Trough Coronavirus (PCR) 06/22/20 06/22/20 06/22/20 14:37 17:00 17:40 WBC RBC Hgb Hct RDW Lymph % (Auto) Lymph # (Auto) Cherry # (Auto) Seg Neuts % (Manual) Lymphocytes % (Manual) Nucleated RBC % Seg Neutrophils # Seg Neutrophils # Man Lymphocytes # (Manual) Monocytes # (Manual) PT INR D-Dimer Heparin Anti-Xa Level 1.32 H ABG pH POC ABG pCO2 POC ABG pO2 ABG Hemoglobin ABG Oxyhemoglobin ABG Sodium ABG Potassium ABG Chloride ABG Glucose Carboxyhemoglobin Sodium Potassium Chloride Carbon Dioxide BUN Creatinine Glucose POC Glucose 171 H Lactic Acid Calcium Magnesium Ferritin AST ALT Lactate Dehydrogenase Total Creatine Kinase C-Reactive Protein 5.30 H Total Protein Albumin Triglycerides Arterial Blood Glucose Arterial Blood Ionized Calcium Urine Creatinine Urine Chloride Vancomycin Trough Coronavirus (PCR) 06/22/20 06/23/20 06/23/20 23:36 02:13 02:41 WBC RBC Hgb Hct RDW Lymph % (Auto) Lymph # (Auto) Cherry # (Auto) Seg Neuts % (Manual) Lymphocytes % (Manual) Nucleated RBC % Seg Neutrophils # Seg Neutrophils # Man Lymphocytes # (Manual) Monocytes # (Manual) PT INR D-Dimer Heparin Anti-Xa Level 0.21 L ABG pH 7.318 L POC ABG pCO2 POC ABG pO2 157.5 H ABG Hemoglobin ABG Oxyhemoglobin ABG Sodium 135.6 L ABG Potassium 4.6 H ABG Chloride 110.0 H ABG Glucose 169 H Carboxyhemoglobin Sodium Potassium Chloride Carbon Dioxide BUN Creatinine Glucose POC Glucose 155 H Lactic Acid Calcium Magnesium Ferritin AST ALT Lactate Dehydrogenase Total Creatine Kinase C-Reactive Protein Total Protein Albumin Triglycerides Arterial Blood Glucose 169 H Arterial Blood Ionized Calcium Urine Creatinine Urine Chloride Vancomycin Trough Coronavirus (PCR) 06/23/20 06/23/20 06/23/20 04:00 04:00 05:24 WBC 27.4 H RBC Hgb 11.3 L Hct 33.8 L RDW Lymph % (Auto) Lymph # (Auto) Cherry # (Auto) Seg Neuts % (Manual) 93.0 H Lymphocytes % (Manual) 1.0 L Nucleated RBC % 1.0 H Seg Neutrophils # Seg Neutrophils # Man 25.5 H Lymphocytes # (Manual) 0.3 L Monocytes # (Manual) 1.1 H PT INR D-Dimer Heparin Anti-Xa Level ABG pH POC ABG pCO2 POC ABG pO2 ABG Hemoglobin ABG Oxyhemoglobin ABG Sodium ABG Potassium ABG Chloride ABG Glucose Carboxyhemoglobin Sodium Potassium Chloride 107.6 H Carbon Dioxide 20 L BUN 100 H Creatinine 4.7 H Glucose 168 H POC Glucose 151 H Lactic Acid Calcium Magnesium Ferritin AST ALT Lactate Dehydrogenase Total Creatine Kinase C-Reactive Protein Total Protein Albumin Triglycerides Arterial Blood Glucose Arterial Blood Ionized Calcium Urine Creatinine Urine Chloride Vancomycin Trough Coronavirus (PCR) 06/23/20 06/23/20 06/23/20 11:30 17:18 23:50 WBC RBC Hgb Hct RDW Lymph % (Auto) Lymph # (Auto) Cherry # (Auto) Seg Neuts % (Manual) Lymphocytes % (Manual) Nucleated RBC % Seg Neutrophils # Seg Neutrophils # Man Lymphocytes # (Manual) Monocytes # (Manual) PT INR D-Dimer Heparin Anti-Xa Level ABG pH POC ABG pCO2 POC ABG pO2 ABG Hemoglobin ABG Oxyhemoglobin ABG Sodium ABG Potassium ABG Chloride ABG Glucose Carboxyhemoglobin Sodium Potassium Chloride Carbon Dioxide BUN Creatinine Glucose POC Glucose 157 H 156 H 162 H Lactic Acid Calcium Magnesium Ferritin AST ALT Lactate Dehydrogenase Total Creatine Kinase C-Reactive Protein Total Protein Albumin Triglycerides Arterial Blood Glucose Arterial Blood Ionized Calcium Urine Creatinine Urine Chloride Vancomycin Trough Coronavirus (PCR) 06/24/20 06/24/20 06/24/20 04:41 05:57 06:30 WBC 34.3 H RBC Hgb 10.9 L Hct 32.6 L RDW Lymph % (Auto) 2.0 L Lymph # (Auto) 0.7 L Cherry # (Auto) 1.2 H Seg Neuts % (Manual) 96.0 H Lymphocytes % (Manual) 3.0 L Nucleated RBC % Seg Neutrophils # 32.3 H Seg Neutrophils # Man 32.9 H Lymphocytes # (Manual) 1.0 L Monocytes # (Manual) PT INR D-Dimer Heparin Anti-Xa Level ABG pH POC ABG pCO2 POC ABG pO2 71.1 L ABG Hemoglobin ABG Oxyhemoglobin 92.4 L ABG Sodium 115.6 L ABG Potassium ABG Chloride ABG Glucose 159 H Carboxyhemoglobin Sodium Potassium Chloride Carbon Dioxide BUN Creatinine Glucose POC Glucose 143 H Lactic Acid Calcium Magnesium Ferritin AST ALT Lactate Dehydrogenase Total Creatine Kinase C-Reactive Protein Total Protein Albumin Triglycerides Arterial Blood Glucose 159 H Arterial Blood Ionized Calcium 4.2 L Urine Creatinine Urine Chloride Vancomycin Trough Coronavirus (PCR) 06/24/20 06/24/20 06/24/20 07:03 09:37 11:56 WBC RBC Hgb Hct RDW Lymph % (Auto) Lymph # (Auto) Cherry # (Auto) Seg Neuts % (Manual) Lymphocytes % (Manual) Nucleated RBC % Seg Neutrophils # Seg Neutrophils # Man Lymphocytes # (Manual) Monocytes # (Manual) PT INR D-Dimer Heparin Anti-Xa Level 0.26 L ABG pH POC ABG pCO2 POC ABG pO2 ABG Hemoglobin ABG Oxyhemoglobin ABG Sodium ABG Potassium ABG Chloride ABG Glucose Carboxyhemoglobin Sodium Potassium 5.1 H Chloride Carbon Dioxide BUN 103 H Creatinine 5.0 H Glucose 163 H POC Glucose 149 H Lactic Acid Calcium 7.6 L Magnesium Ferritin AST ALT Lactate Dehydrogenase Total Creatine Kinase C-Reactive Protein Total Protein Albumin Triglycerides Arterial Blood Glucose Arterial Blood Ionized Calcium Urine Creatinine Urine Chloride Vancomycin Trough Coronavirus (PCR) 06/24/20 06/25/20 06/25/20 18:09 01:05 03:00 WBC RBC Hgb 10.6 L Hct 32.1 L RDW Lymph % (Auto) Lymph # (Auto) Cherry # (Auto) Seg Neuts % (Manual) Lymphocytes % (Manual) Nucleated RBC % Seg Neutrophils # Seg Neutrophils # Man Lymphocytes # (Manual) Monocytes # (Manual) PT INR D-Dimer Heparin Anti-Xa Level ABG pH POC ABG pCO2 POC ABG pO2 ABG Hemoglobin ABG Oxyhemoglobin ABG Sodium ABG Potassium ABG Chloride ABG Glucose Carboxyhemoglobin Sodium Potassium Chloride Carbon Dioxide BUN Creatinine Glucose POC Glucose 141 H 137 H Lactic Acid Calcium Magnesium Ferritin AST ALT Lactate Dehydrogenase Total Creatine Kinase C-Reactive Protein Total Protein Albumin Triglycerides Arterial Blood Glucose Arterial Blood Ionized Calcium Urine Creatinine Urine Chloride Vancomycin Trough Coronavirus (PCR) 06/25/20 06/25/20 06/25/20 03:48 05:17 12:08 WBC RBC Hgb Hct RDW Lymph % (Auto) Lymph # (Auto) Cherry # (Auto) Seg Neuts % (Manual) Lymphocytes % (Manual) Nucleated RBC % Seg Neutrophils # Seg Neutrophils # Man Lymphocytes # (Manual) Monocytes # (Manual) PT INR D-Dimer Heparin Anti-Xa Level ABG pH POC ABG pCO2 29.4 L POC ABG pO2 67.1 L ABG Hemoglobin 11.5 L ABG Oxyhemoglobin ABG Sodium 124.1 L ABG Potassium 4.6 H ABG Chloride ABG Glucose 159 H Carboxyhemoglobin Sodium Potassium Chloride Carbon Dioxide BUN Creatinine Glucose POC Glucose 149 H 150 H Lactic Acid Calcium Magnesium Ferritin AST ALT Lactate Dehydrogenase Total Creatine Kinase C-Reactive Protein Total Protein Albumin Triglycerides Arterial Blood Glucose 159 H Arterial Blood Ionized Calcium 4.2 L Urine Creatinine Urine Chloride Vancomycin Trough Coronavirus (PCR) Chest x-ray: other (none today) Allied health notes reviewed: nursing
--- NOTE | 2020-06-25 16:15 | Progress Note ---
Assessment and Plan Cultures: SARS CoV2 PCR: Positive as outpatient Blood culture: no growth Sputum culture: no growth A/P: 59-year-old male with obesity, obesity hypoventilation syndrome: #Severe sepsis with septic shock: likely secondary to critical COVID-19 pneumonia. Blood cultures so far negative. ?Bacterial pneumonia component, but sputum culture with no growth. On empiric abx, steroids. Completed Remdesivir. #Critical COVID-19 pneumonia: Procalcitonin also high, treating with empiric antibiotics. #Acute hypoxic respiratory failure: on the vent #Transaminitis: Likely secondary to COVID-19. #GIRISH: creatinine elevated. Recs: -Continue steroids for at least total 10 days -s/p Remdesivir -Continue empiric IV Cefepime x 7 days given ongoing pressor use -prophylactic anticoagulation based on d-dimer per hospital protocol -trend ferritin, LDH, d-dimer, CRP every 2-3 days for risk stratification and to assess disease progression -extremely poor prognosis Юлия Finney MD [facility] ([facility] O: [phone] F: [phone] Subjective Date of service: 06/25/20 Principal diagnosis: ARF/Septic Shock/COVID-19 PNA, AF with RVR Interval history: Afebrile, white count mildly elevated at 10.6. Remains on the vent. Objective - Exam Narrative Exam: Physical exam deferred due to PPE conservation strategy. Please refer to primary team's note. - Constitutional Vitals: Vital Signs Temp Pulse Resp BP Pulse Ox 98.9 F 111 H 18 110/62 90 06/25/20 08:00 06/25/20 13:30 06/25/20 13:30 06/25/20 13:30 06/25/20 13:30 Temperature -Last 24 Hours Temperature 98.9 F Temperature 98.6 F Temperature 97.9 F Temperature 97.9 F Temperature 98.9 F - Labs CBC & Chem 7: 06/25/20 03:00 06/24/20 07:03 Labs: Abnormal lab results 06/24/20 06/25/20 06/25/20 Range/Units 18:09 01:05 03:00 Hgb 10.6 L (11.8-15.2) gm/dl Hct 32.1 L (35.5-45.6) % POC ABG pCO2 (32.0-48.0) mmHg POC ABG pO2 (83-108) mmHg ABG Hemoglobin (12.0-17.5) ABG Sodium (136.0-145.0) mmol/L ABG Potassium (3.40-4.50) mmol/L ABG Glucose (65-95) mg/dL POC Glucose 141 H 137 H (70-105) mg/dL Arterial Blood Glucose (65-95) mg/dL Arterial Blood Ionized Calcium (4.6-5.3) mg/dL 06/25/20 06/25/20 06/25/20 Range/Units 03:48 05:17 12:08 Hgb (11.8-15.2) gm/dl Hct (35.5-45.6) % POC ABG pCO2 29.4 L (32.0-48.0) mmHg POC ABG pO2 67.1 L (83-108) mmHg ABG Hemoglobin 11.5 L (12.0-17.5) ABG Sodium 124.1 L (136.0-145.0) mmol/L ABG Potassium 4.6 H (3.40-4.50) mmol/L ABG Glucose 159 H (65-95) mg/dL POC Glucose 149 H 150 H (70-105) mg/dL Arterial Blood Glucose 159 H (65-95) mg/dL Arterial Blood Ionized Calcium 4.2 L (4.6-5.3) mg/dL
--- NOTE | 2020-06-25 17:44 | Progress Note ---
Assessment and Plan Will initiate enteral Amiodarone. - Patient Problems (1) Acute respiratory failure with hypoxia Current Visit: Yes Status: Acute (2) Sepsis Current Visit: Yes Status: Acute Qualifiers: Severe sepsis acute organ dysfunction type: acute respiratory failure Severe sepsis shock status: with septic shock (3) Atrial fibrillation with rapid ventricular response Current Visit: Yes Status: Acute (4) Acute renal failure Current Visit: Yes Status: Acute (5) Pneumonia due to COVID-19 virus Current Visit: Yes Status: Acute (6) Elevated LFTs Current Visit: Yes Status: Acute Subjective Date of service: 06/25/20 Principal diagnosis: ARF/Septic Shock/COVID-19 PNA, AF with RVR Interval history: Intubated and mechanically ventilated. In sinus tachycardia. Objective Vital Signs Last Vital Signs Temp 98.9 F 06/25/20 08:00 Pulse 118 H 06/25/20 17:10 Resp 21 06/25/20 17:10 BP 162/84 06/25/20 17:10 Pulse Ox 93 06/25/20 17:10 - Physical Examination General: Other (intubated, sedated) Neck: Positive: neck supple Cardiac: Positive: Regular Rhythm Lungs: Positive: Decreased Breath Sounds Neuro: Positive: Other (intubated, sedated) Skin: Negative: Rash - Labs and Meds CBC 06/25/20 Range/Units 03:00 Hgb 10.6 L (11.8-15.2) gm/dl Hct 32.1 L (35.5-45.6) % Plt Count 193 (140-440) K/mm3 - Imaging and Cardiology EKG: report reviewed, image reviewed - EKG Sinus rhythms and dysrhythmias: sinus tachycardia
[2020-06-25] MEDS: HEPARIN 10,000 UNITS/10 ML VIAL IV PRN (19:22)
[2020-06-25] MEDS: AMIODARONE 200 MG TAB PO SCH (20:00)
[2020-06-25 20:17] LABS: Hematocrit 26.7 % (35.5-45.6); Mean Corpuscular HGB Conc 34 % (32-34); Mean Corpuscular Volume 87 fl (84-94); Platelet Count 193 K/mm3 (140-440); Red Blood Count 3.06 M/mm3 (3.65-5.03); Red Cell Distribution Width 14.4 % (13.2-15.2)
--- NOTE | 2020-06-25 20:49 | Progress Note ---
Assessment and Plan The high probability of a clinically significant, sudden or life threatening deterioration of the [cvs, [employer], 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 The aggregate critical care time was [42] minutes. This time is in addition to time spent performing reported procedures but includes the following: [x] Data Review and interpretation [x] Patient assessment and monitoring of vital signs [x] Documentation [x] Medication orders and management Assessment and Plan Assessment and plan: 59-year-old white male who was admitted for pneumonia secondary to Covid with associated respiratory failure and sepsis. Acute metabolic encephalopathy -Due to severe sepsis and severe hypoxia -CT head ordered (patient is too unstable to do the scan), currently intubated, continue supportive care with frequent neuro check Acute hypoxic respiratory failure -Due to severe COVID-19 pneumonia -Intubated following admission overnight as patient was unable to maintain oxygenation with 100% FiO2 with BiPAP -Critical care following, frequent nebulizer breathing treatment, empiric steroid Severe septic shock -Patient currently on 2 pressor support -Wean off as tolerated COVID-19 pneumonia -Follow inflammatory markers, ID consulted --Patient initially tested positive for COVID-19 virus about 2 weeks before this admission -CXR shows patchy parenchymal disease which represent pulmonary edema or atypical pneumonia -Placed on dexamethasone for total 10 days and completed remdesivir total 5 days -Continue empiric antibiotics for now per ID recommendation -Droplet/contact isolation -Continue SPO2 monitoring -Supplemental oxygen as needed -Pulmonary hygiene, Prone intermittently to improve oxygenation -Vitamin C, vitamin D, zinc -Anticoagulation per protocol -Lasix IV as needed to prevent pulmonary edema GIRISH, likely ATN -Follow BMP daily, avoid nephrotoxins -Consulted nephrology, follow recommendations -Renal function continues to decline, started on hemodialysis since 06/22/20 hypokalemia, repleted Supraventricular tachycardia/paroxysmal atrial fibrillation -likely due to severe sepsis -Patient currently on 2 pressor, will initiate IV amiodarone drip for rate control if needed -Consulted cardiology, echo ordered currently pending -Placed on heparin drip Elevated LFT, due to shock liver from severe sepsis and COVID-19 infection -Continue to trend Morbid obesity, -Associated with poor outcome with Covid infection -need counseling for diet and exercise and healthy lifestyles once clinically stable as outpatient DVT prophylaxis, per Covid protocol Full CODE STATUS Poor prognosis Subjective Date of service: 06/25/20 Principal diagnosis: ARF/Septic Shock/COVID-19 PNA, AF with RVR Interval history: 59 YO Male with Obesity Hypoventilation Syndrome presents to ED for evaluation. Patient reports I feel weak and tired". Patient states that he has experienced generalized weakness, malaise, fatigue, decreased exercise tolerance, and shortness of breath over the past 1 week with persistently worsening symptoms with over the same timeframe. Patient states that he underwent a car coronavirus test over the weekend and was found to be coronavirus positive. EMS was notified and upon arrival the patient was found to be in distress with a pulse oximetry in the 60s. The patient was placed on supplemental oxygen and transported to [facility] for further care and evaluation of the aforementioned symptoms. Patient seen and evaluated in the emergency department. All lab imaging studies reviewed. Patient found to have a pulse oximetry of 76% on room air which is consistent with acute hypoxemic respiratory failure. Patient in itiated on supplemental oxygen with mild improvement in symptoms. Patient also underwent chest x-ray and was found to have bilateral pneumonia complicated by sepsis, as well as acidosis. Patient admitted to medical floor and initiated on coronavirus protocol as well as pneumonia protocol. Patient denies fever, chills, chest pain, palpitations, productive cough, skin rash, recent ill contacts. No prior admission for review. No medication listed at time of admission for reconciliation. Advanced care planning conducted in ED. Patient admitted for respiratory failure with hypoxia Patient was intubated on 06/17/2020 daily course: 06/18: Patient got intubated overnight. Patient was placed on BiPAP to maintain oxygenation with 100% FiO2 but apparently he found to take off his argueta which made his oxygen saturation go down at 60s/50s and patient was found altered mental status. Code met was called immediately. Patient was transferred to ICU and intubated, patient currently on 2 pressors, intubated with 100% FiO2, renal function noted to be decline, nephrology consulted. Discussed with [place] physician Dr. Thompson and requested call back on Saturday. Poor prognosis, continue to monitor with aggressive supportive care. Also called family/ to update clinical status. 06/19: Repeat COVID test was positive. cont cefepime, remdesivir per ID recommendation. follow inflammatory markers, cbc, bmp. placed on heparin drip for atrial fib 06/20: Remains on mechanical ventilation, on 2 pressors, on heparin drip. discussed with and daughter by phone. Renal function declining. cont supportive care for now. 06/21: Renal function cont to decline, urine outpt sig decreased. started on lasix 80mg BID, plan to follow urine output, if no improvement patient need to start on HD. called and daughter today. updated all clinical details 06/22: Renal function continues to decline with uremia and hyperkalemia. Will need to proceed with hemodialysis. Nephrology discussed with the family and they agrees for the hemodialysis. Patient remains on pressor support and mechanical ventilation. Vas-Cath placed today by vascular started on hemodialysis today. 06/23: 2nd round of HD today, remains on 2 pressors. per RN not tolerating TF, has no record of BM since 06/18. start on stool softner. follow cbc/bmp. updated family( and daughter) by phone -all question answered to best of my knowledge and to their satisfaction. Patient remains critically ill with a very poor prognosis. 06/24: Continue supportive care, Very poor prognosis, G[employer] Peeler to discuss with family in am due to the futility of the condition. 06/25/2020 continue supportive care very poor prognosis History Interval history: patient seen and examined, remains on ventilator Objective - Exam Narrative Exam: Patient intubated - Constitutional Vitals: Vital Signs - 12hr 06/25/20 06/25/20 06/25/20 08:50 09:00 09:10 Temperature Pulse Rate 111 H 110 H 111 H Respiratory 16 24 18 Rate Blood Pressure 102/55 104/58 104/58 O2 Sat by Pulse 92 92 94 Oximetry 06/25/20 06/25/20 06/25/20 09:20 09:30 09:40 Temperature Pulse Rate 120 H 110 H 105 H Respiratory 16 15 14 Rate Blood Pressure 92/53 81/51 81/51 O2 Sat by Pulse 91 91 91 Oximetry 06/25/20 06/25/20 06/25/20 09:50 10:00 10:10 Temperature Pulse Rate 105 H 109 H 115 H Respiratory 16 13 16 Rate Blood Pressure 83/56 94/58 94/58 O2 Sat by Pulse 91 90 91 Oximetry 06/25/20 06/25/20 06/25/20 10:20 10:30 10:40 Temperature Pulse Rate 104 H 111 H 108 H Respiratory 12 15 23 Rate Blood Pressure 92/56 92/56 103/61 O2 Sat by Pulse 91 90 91 Oximetry 06/25/20 06/25/20 06/25/20 10:50 11:00 11:10 Temperature Pulse Rate 105 H 96 H 112 H Respiratory 13 18 13 Rate Blood Pressure 92/56 92/56 122/59 O2 Sat by Pulse 90 91 91 Oximetry 06/25/20 06/25/20 06/25/20 11:20 11:30 11:40 Temperature Pulse Rate 99 H 120 H 142 H Respiratory 16 20 24 Rate Blood Pressure 122/59 122/59 184/83 O2 Sat by Pulse 91 93 91 Oximetry 06/25/20 06/25/20 06/25/20 11:50 12:00 12:10 Temperature Pulse Rate 142 H 122 H 122 H Respiratory 21 21 13 Rate Blood Pressure 184/83 146/79 146/79 O2 Sat by Pulse 93 90 90 Oximetry 06/25/20 06/25/20 06/25/20 12:20 12:30 12:40 Temperature Pulse Rate 132 H 130 H 105 H Respiratory 27 H 25 H 16 Rate Blood Pressure 146/79 144/62 144/62 O2 Sat by Pulse 89 90 90 Oximetry 06/25/20 06/25/20 06/25/20 12:50 13:00 13:10 Temperature Pulse Rate 129 H 121 H 126 H Respiratory 16 15 15 Rate Blood Pressure 144/62 109/55 109/55 O2 Sat by Pulse 90 89 89 Oximetry 06/25/20 06/25/20 06/25/20 13:20 13:30 13:40 Temperature Pulse Rate 113 H 111 H 112 H Respiratory 13 18 18 Rate Blood Pressure 116/66 110/62 110/62 O2 Sat by Pulse 90 90 91 Oximetry 06/25/20 06/25/20 06/25/20 13:50 14:00 14:10 Temperature Pulse Rate 107 H 115 H 99 H Respiratory 17 21 16 Rate Blood Pressure 112/53 118/58 118/58 O2 Sat by Pulse 90 91 91 Oximetry 06/25/20 06/25/20 06/25/20 14:20 14:30 14:40 Temperature Pulse Rate 118 H 107 H 117 H Respiratory 22 19 13 Rate Blood Pressure 120/62 117/66 117/66 O2 Sat by Pulse 91 91 92 Oximetry 06/25/20 06/25/20 06/25/20 14:50 15:00 15:10 Temperature Pulse Rate 114 H 121 H 125 H Respiratory 23 14 15 Rate Blood Pressure 111/64 118/64 118/64 O2 Sat by Pulse 91 91 92 Oximetry 06/25/20 06/25/20 06/25/20 15:20 15:30 15:40 Temperature Pulse Rate 124 H 133 H 134 H Respiratory 14 20 21 Rate Blood Pressure 115/73 111/64 182/77 O2 Sat by Pulse 91 89 91 Oximetry 06/25/20 06/25/20 06/25/20 15:50 16:00 16:10 Temperature Pulse Rate 117 H 120 H 121 H Respiratory 16 19 14 Rate Blood Pressure 158/77 148/72 148/72 O2 Sat by Pulse 92 93 91 Oximetry 06/25/20 06/25/20 06/25/20 16:20 16:30 16:38 Temperature Pulse Rate 126 H 116 H 120 H Respiratory 16 13 Rate Blood Pressure 123/61 115/58 158/77 O2 Sat by Pulse 93 92 92 Oximetry 06/25/20 06/25/20 06/25/20 16:40 16:50 17:00 Temperature Pulse Rate 120 H 121 H 123 H Respiratory 22 16 22 Rate Blood Pressure 115/58 109/52 162/84 O2 Sat by Pulse 92 92 94 Oximetry 06/25/20 06/25/20 06/25/20 17:10 17:20 17:30 Temperature Pulse Rate 118 H 141 H 132 H Respiratory 21 23 24 Rate Blood Pressure 162/84 168/84 182/59 O2 Sat by Pulse 93 92 92 Oximetry 06/25/20 06/25/20 06/25/20 17:40 17:50 18:00 Temperature Pulse Rate 125 H 124 H 131 H Respiratory 17 17 19 Rate Blood Pressure 182/59 178/85 172/75 O2 Sat by Pulse 91 90 91 Oximetry 06/25/20 06/25/20 18:10 20:00 Temperature 98.3 F Pulse Rate 118 H Respiratory 15 Rate Blood Pressure 140/79 O2 Sat by Pulse 91 Oximetry General appearance: Present: no acute distress, well-nourished - EENT Eyes: PERRL, EOM intact ENT: hearing intact, clear oral mucosa Ears: bilateral: normal - Neck Neck: supple, normal ROM - Respiratory Respiratory effort: normal Respiratory: bilateral: CTA - Breasts Breasts: normal - Cardiovascular Heart rate: 78 Rhythm: regular Heart Sounds: Present: S1 & S2. Absent: gallop, rub Extremities: pulses intact, No edema, normal color, Full ROM - Gastrointestinal General gastrointestinal: Present: soft, non-tender, non-distended, normal bowel sounds - Genitourinary Male genitourinary: normal - Integumentary Integumentary: clear, warm, dry - Musculoskeletal Musculoskeletal: generalized weakness - Neurologic Neurologic: moves all extremities, other (Intubated and sedated) - Psychiatric Psychiatric: memory intact, other (Intubated) - Labs CBC & Chem 7: 06/28/20 10:03 06/29/20 03:45 Labs: Abnormal lab results 06/25/20 06/25/20 06/25/20 Range/Units 01:05 03:00 03:48 WBC (4.5-11.0) K/mm3 RBC (3.65-5.03) M/mm3 Hgb 10.6 L (11.8-15.2) gm/dl Hct 32.1 L (35.5-45.6) % Heparin Anti-Xa Level (0.3-0.7) U.I./ml POC ABG pCO2 29.4 L (32.0-48.0) mmHg POC ABG pO2 67.1 L (83-108) mmHg ABG Hemoglobin 11.5 L (12.0-17.5) ABG Sodium 124.1 L (136.0-145.0) mmol/L ABG Potassium 4.6 H (3.40-4.50) mmol/L ABG Glucose 159 H (65-95) mg/dL POC Glucose 137 H (70-105) mg/dL Arterial Blood Glucose 159 H (65-95) mg/dL Arterial Blood Ionized Calcium 4.2 L (4.6-5.3) mg/dL 06/25/20 06/25/20 06/25/20 Range/Units 05:17 12:08 16:27 WBC (4.5-11.0) K/mm3 RBC (3.65-5.03) M/mm3 Hgb (11.8-15.2) gm/dl Hct (35.5-45.6) % Heparin Anti-Xa Level < 0.10 L (0.3-0.7) U.I./ml POC ABG pCO2 (32.0-48.0) mmHg POC ABG pO2 (83-108) mmHg ABG Hemoglobin (12.0-17.5) ABG Sodium (136.0-145.0) mmol/L ABG Potassium (3.40-4.50) mmol/L ABG Glucose (65-95) mg/dL POC Glucose 149 H 150 H (70-105) mg/dL Arterial Blood Glucose (65-95) mg/dL Arterial Blood Ionized Calcium (4.6-5.3) mg/dL 06/25/20 06/25/20 06/25/20 Range/Units 16:35 17:27 20:00 WBC 32.7 H (4.5-11.0) K/mm3 RBC 3.06 L (3.65-5.03) M/mm3 Hgb 9.0 L (11.8-15.2) gm/dl Hct 26.7 L (35.5-45.6) % Heparin Anti-Xa Level (0.3-0.7) U.I./ml POC ABG pCO2 (32.0-48.0) mmHg POC ABG pO2 (83-108) mmHg ABG Hemoglobin (12.0-17.5) ABG Sodium (136.0-145.0) mmol/L ABG Potassium (3.40-4.50) mmol/L ABG Glucose (65-95) mg/dL POC Glucose 143 H 156 H (70-105) mg/dL Arterial Blood Glucose (65-95) mg/dL Arterial Blood Ionized Calcium (4.6-5.3) mg/dL HEART Score - HEART Score Troponin: Troponin T < 0.010 ng/mL (0.00-0.029) 06/17/20 12:33
[2020-06-25 21:02] LABS: Total Cells Counted 100
[2020-06-25 21:03] LABS: RBC Morphology Normal
[2020-06-25 21:19] LABS: INR 1.47 (0.87-1.13)
[2020-06-25 22:26] LABS: Partial Thromboplastin Time 65.8 Sec. (24.2-36.6)
[2020-06-25 23:42] LABS: Hematocrit 28.6 % (35.5-45.6); Hemoglobin 9.5 gm/dl (11.8-15.2)
[2020-06-26] MEDS: INSULIN REGULAR, HUMAN 100 UNITS/1 ML SUB-Q SCH ×4 (00:30→17:59)
[2020-06-26] MEDS: METOCLOPRAMIDE 10 MG/2 ML INJ IV SCH ×4 (01:34→20:30)
[2020-06-26] MEDS: fentaNYL DRIP Premix 2,000 MCG/100 ML BAG IV SCH ×3 (04:24→20:30)
[2020-06-26 05:03] LABS: Calcium 7.6 mg/dL (8.4-10.2)
[2020-06-26] MEDS ORDERED: CALCIUM GLUCONATE 1,000 MG in SODIUM CHLORIDE 0.9% 100 ML IV ONE (05:18)
[2020-06-26] MEDS ORDERED: INSULIN REGULAR, HUMAN 100 UNITS/1 ML SUB-Q ONE (05:18)
[2020-06-26] MEDS ORDERED: DEXTROSE 50% IN WATER (25GM) 50 ML SYRINGE IV ONE (05:19)
[2020-06-26 06:17] LABS: Hematocrit 28.2 % (35.5-45.6); Hemoglobin 9.7 gm/dl (11.8-15.2); Mean Corpuscular HGB Conc 34 % (32-34); Mean Corpuscular Volume 87 fl (84-94); Platelet Count 203 K/mm3 (140-440); Red Blood Count 3.26 M/mm3 (3.65-5.03); Red Cell Distribution Width 14.1 % (13.2-15.2)
[2020-06-26 06:30] LABS: INR 1.44 (0.87-1.13); Partial Thromboplastin Time 28.5 Sec. (24.2-36.6)
[2020-06-26 07:09] LABS: Band Neutrophils # (Manual) 1.1 K/mm3; Total Cells Counted 100
[2020-06-26 07:10] LABS: Anisocytosis Few; Hypochromasia Few; Macrocytosis Rare; Platelet Estimate Consistent w Auto; Target Cells Few
[2020-06-26] MEDS: AMIODARONE 200 MG TAB PO SCH ×3 (08:51→20:30)
[2020-06-26] MEDS: ASCORBIC ACID 250 MG TAB PO SCH ×2 (10:03→21:57)
[2020-06-26] MEDS: CHOLECALCIFEROL (VIT D3) 1000 UNIT (25 mcg) TAB PO SCH (10:03)
[2020-06-26] MEDS: DOCUSATE SODIUM 100 MG/10 ML ORAL LIQD FEEDTUBE SCH ×2 (10:03→21:57)
[2020-06-26] MEDS: ZINC SULFATE 220 MG CAP PO SCH ×2 (10:03→21:58)
[2020-06-26] MEDS: CEFEPIME/NS 2 GM/100 ML 2 GM/100 ML BAG IV SCH (10:03)
[2020-06-26] MEDS: FAMOTIDINE 20 MG/2 ML INJ IV SCH (10:04)
[2020-06-26] MEDS: POLYETHYLENE GLYCOL 3350 17 GM POWDER PO SCH (10:04)
[2020-06-26] MEDS: dexAMETHasone 4 MG/ML VIAL IV SCH ×2 (10:04→21:57)
--- NOTE | 2020-06-26 12:55 | Progress Note ---
Assessment and Plan Acute hypoxemic respiratory failure due to COVID-19 Severe COVID infection Severe Sepsis with shock Bilateral pneumonia Acute kidney injury (GIRISH) with acute tubular necrosis (ATN) Elevated liver enzymes Obesity - repeat CXR in am - get Procalcitonin, lactate levels in am to aid clinical decision making - complete antibiotics per ID (Cefepime) - continue daily SAT's & SBT's as tolerated - to transition to oral amiodarone - continue care as below otherwise; - continue tube feeds and advance to goal rate as tolerated - continue HD/UF per nephrology team for toxin and volume clearance - continue bowel regimen - rate control per cardiology team for afib RVR - Continue to wean supplemental oxygen for O2 sats >92% - Monitor blood pressure closely while optimizing sedation,wean vasopressor support for MAP > 65 mmHg - Critical care prone positioning - Agitation management, keep RASS -1 to -12 now off proning - VAP bundle addressed, aspiration precautions HOB >40 - continue lung protective strategies, permissive hypercapnic acceptable. - continue bronchodilators with pulmonary hygiene per RT - wean per pulmonary driven protocols otherwise - accuchecks with glycemic control per SSI (While critically ill target blood glucose of 140-180 mg/dL; avoid hypoglycemia) - sedation prn for target RASS -1 to -2 - continue enteral nutritional support at goal rate as tolerated - Monitor liver function test ,avoid hepatotoxic agents - azotemia per nephrology rec's - Avoid nephrotoxins, renally dose all medications, conservative fluid management - continue to avoid benzodiazepines, reduce the possibility of delirium, - prn analgesia per CPOT score - Maintenance of sleep-wake cycle, avoid delirium - Stress ulcer prophylaxis, Famotidine - PT/OT/ROM exercises - Mobility protocols for pressure ulcer prevention - CXR, ABG in am - CBC, CMP in am - Supportive transfusions to keep HgB >7g/dL - Monitor hemodynamics closely - continue other care per attending / other consultants COVID SPECIFIC INTERVENTIONS - continue steroids: Dexamethasone - continue with Remdesivir - monitor inflammatory markers - ferritin, D-dimer, CRP, LDH every 3 days per facility protocol - continue anticoagulation per System Protocol based on d-dimer - continue contact and airborne isolation CONDITION: CRITICAL PROGNOSIS: GUARDED CODE STATUS: FULL CODE The high probability of a clinically significant, sudden or life-threatening deterioration of the [respiratory, cardiovascular, hematologic & neurologic] system(s) required my full and direct attention, intervention and personal management. The aggregate critical care time was [32] minutes without overlap. Time includes spent on; [x] Data Review and interpretation [x] Patient assessment and monitoring of vital signs [x] Documentation [x] Medication orders and management He was evaluated in the context of the global COVID-19 pandemic, which necessitated consideration that the patient might be at risk for infection with the virus that causes COVID-19. Institutional protocols and algorithms that pertain to the evaluation of patients at risk for COVID-19 are in a state of rapid change based on information released by regulatory bodies including the CDC and federal and state organizations. These policies and algorithms were followed during the patient's care in the ICU Please note that these policies, procedures and recommendations changed on a rapid basis. Subjective Date of service: 06/26/20 Principal diagnosis: ARF/Septic Shock/COVID-19 PNA, AF with RVR Interval history: Patient is seen today for: Ac hypoxemic respiratory failure; COVID-19; Severe Sepsis with shock; Zackery. pneumonia; GIRISH; Elevated liver enzymes; Obesity Seen and examined at bedside; 24hour events reviewed; nursing and respiratory care staff consulted; no adverse overnight events reported to me; resting in bed ; remains on MVS; FiO2 slowly improving; leucocytosis noted but has weaned of vasopressors and is mostly afebrile; AMS is persistent and not following prompts well during SAT's but non-focal examination Objective Vital Signs - 12hr 06/26/20 06/26/20 06/26/20 01:00 01:10 01:20 Temperature Pulse Rate 105 H 104 H 118 H Respiratory 26 H 21 23 Rate Blood Pressure 89/53 89/53 106/49 O2 Sat by Pulse 95 95 96 Oximetry 06/26/20 06/26/20 06/26/20 01:30 01:40 01:50 Temperature Pulse Rate 109 H 116 H 117 H Respiratory 20 15 17 Rate Blood Pressure 106/49 156/87 153/81 O2 Sat by Pulse 98 97 96 Oximetry 06/26/20 06/26/20 06/26/20 02:00 02:10 02:20 Temperature Pulse Rate 135 H 131 H 113 H Respiratory 18 26 H 18 Rate Blood Pressure 141/72 141/72 153/78 O2 Sat by Pulse 96 95 96 Oximetry 06/26/20 06/26/20 06/26/20 02:30 02:40 02:50 Temperature Pulse Rate 133 H 112 H 118 H Respiratory 17 15 21 Rate Blood Pressure 155/78 155/78 149/69 O2 Sat by Pulse 96 95 95 Oximetry 06/26/20 06/26/20 06/26/20 03:00 03:10 03:20 Temperature Pulse Rate 109 H 120 H 126 H Respiratory 20 14 20 Rate Blood Pressure 152/78 152/78 143/65 O2 Sat by Pulse 96 96 96 Oximetry 06/26/20 06/26/20 06/26/20 03:30 03:40 03:50 Temperature Pulse Rate 118 H 118 H 117 H Respiratory 21 28 H 23 Rate Blood Pressure 143/65 125/62 114/60 O2 Sat by Pulse 95 95 95 Oximetry 06/26/20 06/26/20 06/26/20 03:52 04:00 04:10 Temperature 98.4 F Pulse Rate 114 H 129 H Respiratory 21 22 Rate Blood Pressure 113/64 113/64 O2 Sat by Pulse 95 96 Oximetry 06/26/20 06/26/20 06/26/20 04:20 04:30 04:40 Temperature Pulse Rate 117 H 108 H 116 H Respiratory 22 17 24 Rate Blood Pressure 156/81 156/81 169/74 O2 Sat by Pulse 96 96 95 Oximetry 06/26/20 06/26/20 06/26/20 04:50 05:00 05:10 Temperature Pulse Rate 110 H 120 H 118 H Respiratory 18 25 H 22 Rate Blood Pressure 138/74 123/55 123/55 O2 Sat by Pulse 94 94 95 Oximetry 06/26/20 06/26/20 06/26/20 05:20 05:30 05:40 Temperature Pulse Rate 116 H 113 H 119 H Respiratory 25 H 18 27 H Rate Blood Pressure 144/77 125/62 125/62 O2 Sat by Pulse 95 95 95 Oximetry 06/26/20 06/26/20 06/26/20 05:50 06:00 06:10 Temperature Pulse Rate 116 H 124 H 120 H Respiratory 18 28 H 17 Rate Blood Pressure 126/61 120/58 120/58 O2 Sat by Pulse 96 95 96 Oximetry 06/26/20 06/26/20 06/26/20 06:20 06:30 06:40 Temperature Pulse Rate 126 H 122 H 121 H Respiratory 16 21 15 Rate Blood Pressure 127/62 130/70 130/70 O2 Sat by Pulse 96 96 96 Oximetry 02/14/21 02/14/21 02/14/21 06:50 07:00 07:10 Temperature Pulse Rate 128 H 114 H 130 H Respiratory 18 18 23 Rate Blood Pressure 146/68 152/76 146/68 O2 Sat by Pulse 95 96 96 Oximetry 06/26/20 06/26/20 06/26/20 07:20 07:30 07:35 Temperature Pulse Rate 141 H 150 H 144 H Respiratory 21 25 H Rate Blood Pressure 170/86 178/90 178/90 O2 Sat by Pulse 96 95 95 Oximetry 06/26/20 06/26/20 06/26/20 07:40 07:50 08:00 Temperature Pulse Rate 145 H 138 H 128 H Respiratory 21 20 21 Rate Blood Pressure 178/90 177/82 177/82 O2 Sat by Pulse 94 93 95 Oximetry 06/26/20 06/26/20 06/26/20 08:10 08:20 08:30 Temperature Pulse Rate 126 H 114 H 119 H Respiratory 19 17 19 Rate Blood Pressure 147/59 141/66 143/68 O2 Sat by Pulse 95 95 95 Oximetry 06/26/20 06/26/20 06/26/20 08:40 08:50 09:00 Temperature Pulse Rate 124 H 127 H 116 H Respiratory 17 19 17 Rate Blood Pressure 143/68 145/63 134/80 O2 Sat by Pulse 95 95 95 Oximetry 06/26/20 06/26/20 06/26/20 09:10 09:20 09:30 Temperature Pulse Rate 132 H 126 H 111 H Respiratory 20 17 18 Rate Blood Pressure 134/80 158/66 158/66 O2 Sat by Pulse 95 95 95 Oximetry 06/26/20 06/26/20 06/26/20 09:40 09:50 10:00 Temperature Pulse Rate 139 H 120 H 125 H Respiratory 29 H 18 28 H Rate Blood Pressure 133/56 138/51 138/51 O2 Sat by Pulse 94 95 95 Oximetry 06/26/20 06/26/20 06/26/20 10:10 10:20 10:30 Temperature Pulse Rate 111 H 130 H 114 H Respiratory 17 16 15 Rate Blood Pressure 115/55 126/58 126/58 O2 Sat by Pulse 96 96 96 Oximetry 06/26/20 06/26/20 06/26/20 10:40 10:50 11:00 Temperature Pulse Rate 123 H 130 H 116 H Respiratory 19 22 27 H Rate Blood Pressure 144/64 155/81 155/81 O2 Sat by Pulse 95 95 93 Oximetry Constitutional: no acute distress, other (morbidly obese, atraumatic, normocephalic, mild resp distress, orally intuabted) Eyes: non-icteric ENT: oropharynx moist, other (ETT 24 cm TROY) Neck: supple, no lymphadenopathy, other (Large , short neck) Effort: mildly labored Ascultation: Bilateral: diminished breath sounds, rhonchi Percussion: Bilateral: not dull Cardiovascular: irregular rhythm, other (S1,S2) Gastrointestinal: normoactive bowel sounds, non-distended Integumentary: rash, other (Femoral CVC, Newell catheter) Extremities: no edema, pink and warm, pulses normal, no ischemia or petechiae, edema (trace) Neurologic: non-focal exam (grossly), pupils equal and round, other (unable to assess, sedated) Psychiatric: other (unable to assess, sedated) CBC and BMP: 06/26/20 05:47 06/26/20 03:59 ABG, PT/INR, D-dimer: ABG ABG pH 7.370 (7.320-7.450) 06/26/20 03:25 POC ABG pCO2 33.1 mmHg (32.0-48.0) 06/26/20 03:25 POC ABG pO2 87.1 mmHg (83-108) 06/26/20 03:25 POC ABG HCO3 18.7 06/26/20 03:25 PT/INR, D-dimer PT 17.4 Sec. (12.2-14.9) H 06/26/20 05:47 INR 1.44 (0.87-1.13) H 06/26/20 05:47 D-Dimer 939.89 ng/mlDDU (0-234) H 06/17/20 14:48 Abnormal lab findings: Abnormal Labs 06/17/20 06/17/20 06/17/20 12:33 12:33 12:33 WBC 19.5 H RBC 5.18 H Hgb 15.5 H Hct RDW Lymph % (Auto) 3.8 L Lymph # (Auto) 0.7 L [place] # (Auto) Seg Neuts % (Manual) 99.0 H Lymphocytes % (Manual) 1.0 L Nucleated RBC % Seg Neutrophils # 18.2 H Seg Neutrophils # Man 19.3 H Lymphocytes # (Manual) 0.2 L Monocytes # (Manual) PT 16.5 H INR 1.33 H APTT D-Dimer 1025.04 H Heparin Anti-Xa Level ABG pH POC ABG pCO2 POC ABG pO2 ABG Hemoglobin ABG Oxyhemoglobin ABG Sodium ABG Potassium ABG Chloride ABG Glucose Carboxyhemoglobin Sodium 130 L Potassium 3.4 L Chloride 95.0 L Carbon Dioxide BUN 21 H Creatinine Glucose 137 H POC Glucose Lactic Acid Calcium 7.9 L Magnesium Ferritin AST 84 H ALT 67 H Lactate Dehydrogenase 437 H Total Creatine Kinase 310 H C-Reactive Protein 27.90 H Total Protein Albumin 2.9 L Triglycerides Arterial Blood Glucose Arterial Blood Ionized Calcium Urine Creatinine Urine Chloride Vancomycin Trough Coronavirus (PCR) 06/17/20 06/17/20 06/17/20 12:33 12:33 14:48 WBC RBC Hgb Hct RDW Lymph % (Auto) Lymph # (Auto) [place] # (Auto) Seg Neuts % (Manual) Lymphocytes % (Manual) Nucleated RBC % Seg Neutrophils # Seg Neutrophils # Man Lymphocytes # (Manual) Monocytes # (Manual) PT INR APTT D-Dimer Heparin Anti-Xa Level ABG pH POC ABG pCO2 POC ABG pO2 ABG Hemoglobin ABG Oxyhemoglobin ABG Sodium ABG Potassium ABG Chloride ABG Glucose Carboxyhemoglobin Sodium Potassium Chloride Carbon Dioxide BUN Creatinine Glucose POC Glucose Lactic Acid 2.50 H* 2.20 H* Calcium Magnesium Ferritin 2297.0 H AST ALT Lactate Dehydrogenase Total Creatine Kinase C-Reactive Protein Total Protein Albumin Triglycerides Arterial Blood Glucose Arterial Blood Ionized Calcium Urine Creatinine Urine Chloride Vancomycin Trough Coronavirus (PCR) 06/17/20 06/17/20 06/17/20 14:48 14:48 14:48 WBC RBC Hgb Hct RDW Lymph % (Auto) Lymph # (Auto) [place] # (Auto) Seg Neuts % (Manual) Lymphocytes % (Manual) Nucleated RBC % Seg Neutrophils # Seg Neutrophils # Man Lymphocytes # (Manual) Monocytes # (Manual) PT INR APTT D-Dimer 939.89 H Heparin Anti-Xa Level ABG pH POC ABG pCO2 POC ABG pO2 ABG Hemoglobin ABG Oxyhemoglobin ABG Sodium ABG Potassium ABG Chloride ABG Glucose Carboxyhemoglobin Sodium Potassium Chloride Carbon Dioxide BUN Creatinine Glucose 141 H POC Glucose Lactic Acid Calcium Magnesium Ferritin > 2000.0 H AST ALT Lactate Dehydrogenase 503 H Total Creatine Kinase C-Reactive Protein 24.70 H Total Protein Albumin Triglycerides Arterial Blood Glucose Arterial Blood Ionized Calcium Urine Creatinine Urine Chloride Vancomycin Trough Coronavirus (PCR) 06/17/20 06/17/20 06/17/20 16:54 19:39 23:43 WBC RBC Hgb Hct RDW Lymph % (Auto) Lymph # (Auto) [place] # (Auto) Seg Neuts % (Manual) Lymphocytes % (Manual) Nucleated RBC % Seg Neutrophils # Seg Neutrophils # Man Lymphocytes # (Manual) Monocytes # (Manual) PT INR APTT D-Dimer Heparin Anti-Xa Level ABG pH 7.571 H POC ABG pCO2 24.3 L POC ABG pO2 41.6 L ABG Hemoglobin ABG Oxyhemoglobin 84.0 L ABG Sodium 131.0 L ABG Potassium ABG Chloride ABG Glucose 163 H Carboxyhemoglobin Sodium Potassium Chloride Carbon Dioxide BUN Creatinine Glucose POC Glucose 185 H Lactic Acid 2.10 H* Calcium Magnesium Ferritin AST ALT Lactate Dehydrogenase Total Creatine Kinase C-Reactive Protein Total Protein Albumin Triglycerides Arterial Blood Glucose 163 H Arterial Blood Ionized Calcium 4.4 L Urine Creatinine Urine Chloride Vancomycin Trough Coronavirus (PCR) 06/18/20 06/18/20 06/18/20 00:17 00:23 03:55 WBC RBC Hgb Hct RDW Lymph % (Auto) Lymph # (Auto) [place] # (Auto) Seg Neuts % (Manual) Lymphocytes % (Manual) Nucleated RBC % Seg Neutrophils # Seg Neutrophils # Man Lymphocytes # (Manual) Monocytes # (Manual) PT INR APTT D-Dimer Heparin Anti-Xa Level ABG pH POC ABG pCO2 POC ABG pO2 56.5 L 48.3 L ABG Hemoglobin ABG Oxyhemoglobin 86.3 L 81.7 L ABG Sodium 132.9 L 131.0 L ABG Potassium ABG Chloride ABG Glucose 189 H 161 H Carboxyhemoglobin 0.4 L Sodium Potassium Chloride Carbon Dioxide BUN Creatinine Glucose POC Glucose Lactic Acid 3.80 H* Calcium Magnesium Ferritin AST ALT Lactate Dehydrogenase Total Creatine Kinase C-Reactive Protein Total Protein Albumin Triglycerides Arterial Blood Glucose 189 H 161 H Arterial Blood Ionized Calcium 4.3 L 4.2 L Urine Creatinine Urine Chloride Vancomycin Trough Coronavirus (PCR) 06/18/20 06/18/20 06/18/20 05:39 05:39 05:39 WBC 26.2 H RBC Hgb Hct RDW Lymph % (Auto) Lymph # (Auto) [place] # (Auto) Seg Neuts % (Manual) 90.0 H Lymphocytes % (Manual) 5.0 L Nucleated RBC % Seg Neutrophils # Seg Neutrophils # Man 23.6 H Lymphocytes # (Manual) Monocytes # (Manual) 1.3 H PT INR APTT D-Dimer Heparin Anti-Xa Level ABG pH POC ABG pCO2 POC ABG pO2 ABG Hemoglobin ABG Oxyhemoglobin ABG Sodium ABG Potassium ABG Chloride ABG Glucose Carboxyhemoglobin Sodium 135 L Potassium Chloride 97.5 L Carbon Dioxide 21 L BUN 39 H Creatinine 1.7 H D Glucose 168 H POC Glucose Lactic Acid 3.40 H* Calcium 7.2 L Magnesium Ferritin AST ALT Lactate Dehydrogenase Total Creatine Kinase C-Reactive Protein Total Protein Albumin Triglycerides Arterial Blood Glucose Arterial Blood Ionized Calcium Urine Creatinine Urine Chloride Vancomycin Trough Coronavirus (PCR) 06/18/20 06/18/20 06/18/20 07:24 09:00 10:10 WBC RBC Hgb Hct RDW Lymph % (Auto) Lymph # (Auto) [place] # (Auto) Seg Neuts % (Manual) Lymphocytes % (Manual) Nucleated RBC % Seg Neutrophils # Seg Neutrophils # Man Lymphocytes # (Manual) Monocytes # (Manual) PT INR APTT D-Dimer Heparin Anti-Xa Level ABG pH POC ABG pCO2 POC ABG pO2 ABG Hemoglobin ABG Oxyhemoglobin ABG Sodium ABG Potassium ABG Chloride ABG Glucose Carboxyhemoglobin Sodium Potassium Chloride Carbon Dioxide BUN Creatinine Glucose POC Glucose Lactic Acid 2.90 H* 3.20 H* Calcium Magnesium Ferritin AST ALT Lactate Dehydrogenase Total Creatine Kinase C-Reactive Protein Total Protein Albumin Triglycerides Arterial Blood Glucose Arterial Blood Ionized Calcium Urine Creatinine Urine Chloride Vancomycin Trough Coronavirus (PCR) Positive A 06/18/20 06/18/20 06/18/20 11:58 14:43 15:00 WBC RBC Hgb Hct RDW Lymph % (Auto) Lymph # (Auto) [place] # (Auto) Seg Neuts % (Manual) Lymphocytes % (Manual) Nucleated RBC % Seg Neutrophils # Seg Neutrophils # Man Lymphocytes # (Manual) Monocytes # (Manual) PT INR APTT D-Dimer Heparin Anti-Xa Level ABG pH 7.303 L POC ABG pCO2 POC ABG pO2 82.3 L ABG Hemoglobin ABG Oxyhemoglobin ABG Sodium 135.3 L ABG Potassium ABG Chloride ABG Glucose 215 H Carboxyhemoglobin 0.3 L Sodium Potassium Chloride Carbon Dioxide BUN Creatinine Glucose POC Glucose 209 H Lactic Acid Calcium Magnesium Ferritin AST ALT Lactate Dehydrogenase Total Creatine Kinase C-Reactive Protein Total Protein Albumin Triglycerides Arterial Blood Glucose 215 H Arterial Blood Ionized Calcium 4.2 L Urine Creatinine 192.4 H Urine Chloride 31.1 L Vancomycin Trough Coronavirus (PCR) 06/18/20 06/18/20 06/18/20 17:16 19:44 20:33 WBC RBC Hgb Hct RDW Lymph % (Auto) Lymph # (Auto) [place] # (Auto) Seg Neuts % (Manual) Lymphocytes % (Manual) Nucleated RBC % Seg Neutrophils # Seg Neutrophils # Man Lymphocytes # (Manual) Monocytes # (Manual) PT INR APTT D-Dimer Heparin Anti-Xa Level ABG pH POC ABG pCO2 POC ABG pO2 ABG Hemoglobin ABG Oxyhemoglobin ABG Sodium ABG Potassium ABG Chloride ABG Glucose Carboxyhemoglobin Sodium Potassium Chloride Carbon Dioxide BUN Creatinine Glucose POC Glucose 182 H Lactic Acid 3.00 H* Calcium Magnesium 2.70 H Ferritin AST ALT Lactate Dehydrogenase Total Creatine Kinase C-Reactive Protein Total Protein Albumin Triglycerides Arterial Blood Glucose Arterial Blood Ionized Calcium Urine Creatinine Urine Chloride Vancomycin Trough Coronavirus (PCR) 06/18/20 06/19/20 06/19/20 23:43 04:00 04:00 WBC 31.6 H RBC Hgb Hct RDW Lymph % (Auto) Lymph # (Auto) [place] # (Auto) Seg Neuts % (Manual) 98.0 H Lymphocytes % (Manual) 0.5 L Nucleated RBC % Seg Neutrophils # Seg Neutrophils # Man 31.0 H Lymphocytes # (Manual) 0.2 L Monocytes # (Manual) PT INR APTT D-Dimer Heparin Anti-Xa Level ABG pH POC ABG pCO2 POC ABG pO2 ABG Hemoglobin ABG Oxyhemoglobin ABG Sodium ABG Potassium ABG Chloride ABG Glucose Carboxyhemoglobin Sodium Potassium Chloride Carbon Dioxide BUN 56 H Creatinine 1.6 H Glucose 176 H POC Glucose 149 H Lactic Acid Calcium 7.0 L Magnesium Ferritin AST 244 H ALT 159 H Lactate Dehydrogenase Total Creatine Kinase C-Reactive Protein Total Protein 4.9 L D Albumin 2.5 L Triglycerides Arterial Blood Glucose Arterial Blood Ionized Calcium Urine Creatinine Urine Chloride Vancomycin Trough Coronavirus (PCR) 06/19/20 06/19/20 06/19/20 04:00 05:44 11:42 WBC RBC Hgb Hct RDW Lymph % (Auto) Lymph # (Auto) [place] # (Auto) Seg Neuts % (Manual) Lymphocytes % (Manual) Nucleated RBC % Seg Neutrophils # Seg Neutrophils # Man Lymphocytes # (Manual) Monocytes # (Manual) PT INR APTT D-Dimer Heparin Anti-Xa Level ABG pH 7.265 L POC ABG pCO2 51.8 H POC ABG pO2 65.1 L ABG Hemoglobin ABG Oxyhemoglobin ABG Sodium ABG Potassium ABG Chloride ABG Glucose 184 H Carboxyhemoglobin Sodium Potassium Chloride Carbon Dioxide BUN Creatinine Glucose POC Glucose 156 H 191 H Lactic Acid Calcium Magnesium Ferritin AST ALT Lactate Dehydrogenase Total Creatine Kinase C-Reactive Protein Total Protein Albumin Triglycerides Arterial Blood Glucose 184 H Arterial Blood Ionized Calcium 4.3 L Urine Creatinine Urine Chloride Vancomycin Trough Coronavirus (PCR) 06/19/20 06/19/20 06/19/20 12:30 17:16 18:36 WBC RBC Hgb Hct RDW Lymph % (Auto) Lymph # (Auto) [place] # (Auto) Seg Neuts % (Manual) Lymphocytes % (Manual) Nucleated RBC % Seg Neutrophils # Seg Neutrophils # Man Lymphocytes # (Manual) Monocytes # (Manual) PT 16.4 H INR 1.32 H APTT D-Dimer Heparin Anti-Xa Level ABG pH 7.088 L POC ABG pCO2 78.1 H POC ABG pO2 208.3 H ABG Hemoglobin ABG Oxyhemoglobin 98.3 H ABG Sodium ABG Potassium 5.0 H ABG Chloride ABG Glucose 182 H Carboxyhemoglobin 0.4 L Sodium Potassium Chloride Carbon Dioxide BUN Creatinine Glucose POC Glucose 154 H Lactic Acid Calcium Magnesium Ferritin AST ALT Lactate Dehydrogenase Total Creatine Kinase C-Reactive Protein Total Protein Albumin Triglycerides Arterial Blood Glucose 182 H Arterial Blood Ionized Calcium 4.3 L Urine Creatinine Urine Chloride Vancomycin Trough Coronavirus (PCR) 06/19/20 06/20/20 06/20/20 23:32 03:00 05:19 WBC RBC Hgb Hct RDW Lymph % (Auto) Lymph # (Auto) [place] # (Auto) Seg Neuts % (Manual) Lymphocytes % (Manual) Nucleated RBC % Seg Neutrophils # Seg Neutrophils # Man Lymphocytes # (Manual) Monocytes # (Manual) PT INR APTT D-Dimer Heparin Anti-Xa Level 0.77 H ABG pH POC ABG pCO2 POC ABG pO2 ABG Hemoglobin ABG Oxyhemoglobin ABG Sodium ABG Potassium ABG Chloride ABG Glucose Carboxyhemoglobin Sodium Potassium Chloride Carbon Dioxide BUN Creatinine Glucose POC Glucose 201 H 190 H Lactic Acid Calcium Magnesium Ferritin AST ALT Lactate Dehydrogenase Total Creatine Kinase C-Reactive Protein Total Protein Albumin Triglycerides Arterial Blood Glucose Arterial Blood Ionized Calcium Urine Creatinine Urine Chloride Vancomycin Trough Coronavirus (PCR) 06/20/20 06/20/20 06/20/20 08:25 08:25 11:36 WBC RBC Hgb Hct RDW Lymph % (Auto) Lymph # (Auto) [place] # (Auto) Seg Neuts % (Manual) Lymphocytes % (Manual) Nucleated RBC % Seg Neutrophils # Seg Neutrophils # Man Lymphocytes # (Manual) Monocytes # (Manual) PT INR APTT D-Dimer Heparin Anti-Xa Level ABG pH POC ABG pCO2 POC ABG pO2 ABG Hemoglobin ABG Oxyhemoglobin ABG Sodium ABG Potassium ABG Chloride ABG Glucose Carboxyhemoglobin Sodium 135 L Potassium 5.4 H Chloride 109.2 H Carbon Dioxide 19 L BUN 68 H Creatinine 2.5 H D Glucose 201 H POC Glucose 184 H Lactic Acid Calcium 5.5 L* D Magnesium Ferritin AST 123 H ALT 86 H Lactate Dehydrogenase Total Creatine Kinase C-Reactive Protein Total Protein 4.6 L Albumin 1.5 L Triglycerides Arterial Blood Glucose Arterial Blood Ionized Calcium Urine Creatinine Urine Chloride Vancomycin Trough 22.7 H Coronavirus (PCR) 06/20/20 06/20/20 06/20/20 11:40 17:28 20:00 WBC RBC Hgb Hct RDW Lymph % (Auto) Lymph # (Auto) [place] # (Auto) Seg Neuts % (Manual) Lymphocytes % (Manual) Nucleated RBC % Seg Neutrophils # Seg Neutrophils # Man Lymphocytes # (Manual) Monocytes # (Manual) PT INR APTT D-Dimer Heparin Anti-Xa Level 0.89 H ABG pH 7.099 L POC ABG pCO2 61.1 H POC ABG pO2 ABG Hemoglobin ABG Oxyhemoglobin ABG Sodium ABG Potassium 5.0 H ABG Chloride 111.0 H ABG Glucose 200 H Carboxyhemoglobin 0.4 L Sodium Potassium Chloride Carbon Dioxide BUN Creatinine Glucose POC Glucose 165 H Lactic Acid Calcium Magnesium Ferritin AST ALT Lactate Dehydrogenase Total Creatine Kinase C-Reactive Protein Total Protein Albumin Triglycerides Arterial Blood Glucose 200 H Arterial Blood Ionized Calcium 4.2 L Urine Creatinine Urine Chloride Vancomycin Trough Coronavirus (PCR) 06/20/20 06/21/20 06/21/20 23:29 05:00 05:20 WBC RBC Hgb Hct RDW Lymph % (Auto) Lymph # (Auto) [place] # (Auto) Seg Neuts % (Manual) Lymphocytes % (Manual) Nucleated RBC % Seg Neutrophils # Seg Neutrophils # Man Lymphocytes # (Manual) Monocytes # (Manual) PT INR APTT D-Dimer Heparin Anti-Xa Level ABG pH POC ABG pCO2 POC ABG pO2 ABG Hemoglobin ABG Oxyhemoglobin ABG Sodium ABG Potassium ABG Chloride ABG Glucose Carboxyhemoglobin Sodium Potassium Chloride 112.0 H Carbon Dioxide 20 L BUN 92 H Creatinine 3.9 H D Glucose 214 H POC Glucose 145 H 191 H Lactic Acid Calcium 6.5 L D Magnesium Ferritin AST 98 H ALT 84 H Lactate Dehydrogenase Total Creatine Kinase C-Reactive Protein Total Protein 4.6 L Albumin 2.1 L Triglycerides 180 H Arterial Blood Glucose Arterial Blood Ionized Calcium Urine Creatinine Urine Chloride Vancomycin Trough Coronavirus (PCR) 06/21/20 06/21/20 06/21/20 08:56 11:12 12:43 WBC RBC Hgb Hct RDW Lymph % (Auto) Lymph # (Auto) [place] # (Auto) Seg Neuts % (Manual) Lymphocytes % (Manual) Nucleated RBC % Seg Neutrophils # Seg Neutrophils # Man Lymphocytes # (Manual) Monocytes # (Manual) PT INR APTT D-Dimer Heparin Anti-Xa Level 0.28 L ABG pH 7.184 L POC ABG pCO2 48.3 H POC ABG pO2 172.1 H ABG Hemoglobin ABG Oxyhemoglobin 98.7 H ABG Sodium ABG Potassium 4.9 H ABG Chloride 112.0 H ABG Glucose 196 H Carboxyhemoglobin 0.2 L Sodium Potassium Chloride Carbon Dioxide BUN Creatinine Glucose POC Glucose 177 H Lactic Acid Calcium Magnesium Ferritin AST ALT Lactate Dehydrogenase Total Creatine Kinase C-Reactive Protein Total Protein Albumin Triglycerides Arterial Blood Glucose 196 H Arterial Blood Ionized Calcium 4.1 L Urine Creatinine Urine Chloride Vancomycin Trough Coronavirus (PCR) 06/21/20 06/21/20 06/22/20 16:31 Unknown 00:12 WBC RBC Hgb Hct RDW Lymph % (Auto) Lymph # (Auto) [place] # (Auto) Seg Neuts % (Manual) Lymphocytes % (Manual) Nucleated RBC % Seg Neutrophils # Seg Neutrophils # Man Lymphocytes # (Manual) Monocytes # (Manual) PT INR APTT D-Dimer Heparin Anti-Xa Level 0.78 H ABG pH POC ABG pCO2 POC ABG pO2 ABG Hemoglobin ABG Oxyhemoglobin ABG Sodium ABG Potassium ABG Chloride ABG Glucose Carboxyhemoglobin Sodium Potassium Chloride Carbon Dioxide BUN Creatinine Glucose POC Glucose 150 H 173 H Lactic Acid Calcium Magnesium Ferritin AST ALT Lactate Dehydrogenase Total Creatine Kinase C-Reactive Protein Total Protein Albumin Triglycerides Arterial Blood Glucose Arterial Blood Ionized Calcium Urine Creatinine Urine Chloride Vancomycin Trough Coronavirus (PCR) 06/22/20 06/22/20 06/22/20 04:00 05:04 05:30 WBC 33.9 H RBC Hgb 11.7 L Hct 35.2 L RDW 15.8 H Lymph % (Auto) Lymph # (Auto) [place] # (Auto) Seg Neuts % (Manual) 93.0 H Lymphocytes % (Manual) 5.0 L Nucleated RBC % Seg Neutrophils # Seg Neutrophils # Man 31.5 H Lymphocytes # (Manual) Monocytes # (Manual) PT INR APTT D-Dimer Heparin Anti-Xa Level ABG pH 7.169 L POC ABG pCO2 POC ABG pO2 ABG Hemoglobin ABG Oxyhemoglobin ABG Sodium ABG Potassium 5.1 H ABG Chloride 112.0 H ABG Glucose 186 H Carboxyhemoglobin 0.3 L Sodium Potassium Chloride Carbon Dioxide BUN Creatinine Glucose POC Glucose 161 H Lactic Acid Calcium Magnesium Ferritin AST ALT Lactate Dehydrogenase Total Creatine Kinase C-Reactive Protein Total Protein Albumin Triglycerides Arterial Blood Glucose 186 H Arterial Blood Ionized Calcium 4.1 L Urine Creatinine Urine Chloride Vancomycin Trough Coronavirus (PCR) 06/22/20 06/22/20 06/22/20 05:30 11:39 13:27 WBC RBC Hgb Hct RDW Lymph % (Auto) Lymph # (Auto) [place] # (Auto) Seg Neuts % (Manual) Lymphocytes % (Manual) Nucleated RBC % Seg Neutrophils # Seg Neutrophils # Man Lymphocytes # (Manual) Monocytes # (Manual) PT INR APTT D-Dimer Heparin Anti-Xa Level ABG pH POC ABG pCO2 POC ABG pO2 ABG Hemoglobin ABG Oxyhemoglobin ABG Sodium ABG Potassium ABG Chloride ABG Glucose Carboxyhemoglobin Sodium Potassium 5.7 H Chloride 111.3 H Carbon Dioxide 18 L BUN 112 H Creatinine 5.0 H Glucose 173 H POC Glucose 172 H 176 H Lactic Acid Calcium 6.7 L Magnesium Ferritin AST ALT Lactate Dehydrogenase Total Creatine Kinase C-Reactive Protein Total Protein Albumin Triglycerides Arterial Blood Glucose Arterial Blood Ionized Calcium Urine Creatinine Urine Chloride Vancomycin Trough Coronavirus (PCR) 06/22/20 06/22/20 06/22/20 14:37 17:00 17:40 WBC RBC Hgb Hct RDW Lymph % (Auto) Lymph # (Auto) [place] # (Auto) Seg Neuts % (Manual) Lymphocytes % (Manual) Nucleated RBC % Seg Neutrophils # Seg Neutrophils # Man Lymphocytes # (Manual) Monocytes # (Manual) PT INR APTT D-Dimer Heparin Anti-Xa Level 1.32 H ABG pH POC ABG pCO2 POC ABG pO2 ABG Hemoglobin ABG Oxyhemoglobin ABG Sodium ABG Potassium ABG Chloride ABG Glucose Carboxyhemoglobin Sodium Potassium Chloride Carbon Dioxide BUN Creatinine Glucose POC Glucose 171 H Lactic Acid Calcium Magnesium Ferritin AST ALT Lactate Dehydrogenase Total Creatine Kinase C-Reactive Protein 5.30 H Total Protein Albumin Triglycerides Arterial Blood Glucose Arterial Blood Ionized Calcium Urine Creatinine Urine Chloride Vancomycin Trough Coronavirus (PCR) 06/22/20 06/23/20 06/23/20 23:36 02:13 02:41 WBC RBC Hgb Hct RDW Lymph % (Auto) Lymph # (Auto) [place] # (Auto) Seg Neuts % (Manual) Lymphocytes % (Manual) Nucleated RBC % Seg Neutrophils # Seg Neutrophils # Man Lymphocytes # (Manual) Monocytes # (Manual) PT INR APTT D-Dimer Heparin Anti-Xa Level 0.21 L ABG pH 7.318 L POC ABG pCO2 POC ABG pO2 157.5 H ABG Hemoglobin ABG Oxyhemoglobin ABG Sodium 135.6 L ABG Potassium 4.6 H ABG Chloride 110.0 H ABG Glucose 169 H Carboxyhemoglobin Sodium Potassium Chloride Carbon Dioxide BUN Creatinine Glucose POC Glucose 155 H Lactic Acid Calcium Magnesium Ferritin AST ALT Lactate Dehydrogenase Total Creatine Kinase C-Reactive Protein Total Protein Albumin Triglycerides Arterial Blood Glucose 169 H Arterial Blood Ionized Calcium Urine Creatinine Urine Chloride Vancomycin Trough Coronavirus (PCR) 06/23/20 06/23/20 06/23/20 04:00 04:00 05:24 WBC 27.4 H RBC Hgb 11.3 L Hct 33.8 L RDW Lymph % (Auto) Lymph # (Auto) [place] # (Auto) Seg Neuts % (Manual) 93.0 H Lymphocytes % (Manual) 1.0 L Nucleated RBC % 1.0 H Seg Neutrophils # Seg Neutrophils # Man 25.5 H Lymphocytes # (Manual) 0.3 L Monocytes # (Manual) 1.1 H PT INR APTT D-Dimer Heparin Anti-Xa Level ABG pH POC ABG pCO2 POC ABG pO2 ABG Hemoglobin ABG Oxyhemoglobin ABG Sodium ABG Potassium ABG Chloride ABG Glucose Carboxyhemoglobin Sodium Potassium Chloride 107.6 H Carbon Dioxide 20 L BUN 100 H Creatinine 4.7 H Glucose 168 H POC Glucose 151 H Lactic Acid Calcium Magnesium Ferritin AST ALT Lactate Dehydrogenase Total Creatine Kinase C-Reactive Protein Total Protein Albumin Triglycerides Arterial Blood Glucose Arterial Blood Ionized Calcium Urine Creatinine Urine Chloride Vancomycin Trough Coronavirus (PCR) 06/23/20 06/23/20 06/23/20 11:30 17:18 23:50 WBC RBC Hgb Hct RDW Lymph % (Auto) Lymph # (Auto) [place] # (Auto) Seg Neuts % (Manual) Lymphocytes % (Manual) Nucleated RBC % Seg Neutrophils # Seg Neutrophils # Man Lymphocytes # (Manual) Monocytes # (Manual) PT INR APTT D-Dimer Heparin Anti-Xa Level ABG pH POC ABG pCO2 POC ABG pO2 ABG Hemoglobin ABG Oxyhemoglobin ABG Sodium ABG Potassium ABG Chloride ABG Glucose Carboxyhemoglobin Sodium Potassium Chloride Carbon Dioxide BUN Creatinine Glucose POC Glucose 157 H 156 H 162 H Lactic Acid Calcium Magnesium Ferritin AST ALT Lactate Dehydrogenase Total Creatine Kinase C-Reactive Protein Total Protein Albumin Triglycerides Arterial Blood Glucose Arterial Blood Ionized Calcium Urine Creatinine Urine Chloride Vancomycin Trough Coronavirus (PCR) 06/24/20 06/24/20 06/24/20 04:41 05:57 06:30 WBC 34.3 H RBC Hgb 10.9 L Hct 32.6 L RDW Lymph % (Auto) 2.0 L Lymph # (Auto) 0.7 L [place] # (Auto) 1.2 H Seg Neuts % (Manual) 96.0 H Lymphocytes % (Manual) 3.0 L Nucleated RBC % Seg Neutrophils # 32.3 H Seg Neutrophils # Man 32.9 H Lymphocytes # (Manual) 1.0 L Monocytes # (Manual) PT INR APTT D-Dimer Heparin Anti-Xa Level ABG pH POC ABG pCO2 POC ABG pO2 71.1 L ABG Hemoglobin ABG Oxyhemoglobin 92.4 L ABG Sodium 115.6 L ABG Potassium ABG Chloride ABG Glucose 159 H Carboxyhemoglobin Sodium Potassium Chloride Carbon Dioxide BUN Creatinine Glucose POC Glucose 143 H Lactic Acid Calcium Magnesium Ferritin AST ALT Lactate Dehydrogenase Total Creatine Kinase C-Reactive Protein Total Protein Albumin Triglycerides Arterial Blood Glucose 159 H Arterial Blood Ionized Calcium 4.2 L Urine Creatinine Urine Chloride Vancomycin Trough Coronavirus (PCR) 06/24/20 06/24/20 06/24/20 07:03 09:37 11:56 WBC RBC Hgb Hct RDW Lymph % (Auto) Lymph # (Auto) [place] # (Auto) Seg Neuts % (Manual) Lymphocytes % (Manual) Nucleated RBC % Seg Neutrophils # Seg Neutrophils # Man Lymphocytes # (Manual) Monocytes # (Manual) PT INR APTT D-Dimer Heparin Anti-Xa Level 0.26 L ABG pH POC ABG pCO2 POC ABG pO2 ABG Hemoglobin ABG Oxyhemoglobin ABG Sodium ABG Potassium ABG Chloride ABG Glucose Carboxyhemoglobin Sodium Potassium 5.1 H Chloride Carbon Dioxide BUN 103 H Creatinine 5.0 H Glucose 163 H POC Glucose 149 H Lactic Acid Calcium 7.6 L Magnesium Ferritin AST ALT Lactate Dehydrogenase Total Creatine Kinase C-Reactive Protein Total Protein Albumin Triglycerides Arterial Blood Glucose Arterial Blood Ionized Calcium Urine Creatinine Urine Chloride Vancomycin Trough Coronavirus (PCR) 06/24/20 06/25/20 06/25/20 18:09 01:05 03:00 WBC RBC Hgb 10.6 L Hct 32.1 L RDW Lymph % (Auto) Lymph # (Auto) [place] # (Auto) Seg Neuts % (Manual) Lymphocytes % (Manual) Nucleated RBC % Seg Neutrophils # Seg Neutrophils # Man Lymphocytes # (Manual) Monocytes # (Manual) PT INR APTT D-Dimer Heparin Anti-Xa Level ABG pH POC ABG pCO2 POC ABG pO2 ABG Hemoglobin ABG Oxyhemoglobin ABG Sodium ABG Potassium ABG Chloride ABG Glucose Carboxyhemoglobin Sodium Potassium Chloride Carbon Dioxide BUN Creatinine Glucose POC Glucose 141 H 137 H Lactic Acid Calcium Magnesium Ferritin AST ALT Lactate Dehydrogenase Total Creatine Kinase C-Reactive Protein Total Protein Albumin Triglycerides Arterial Blood Glucose Arterial Blood Ionized Calcium Urine Creatinine Urine Chloride Vancomycin Trough Coronavirus (PCR) 06/25/20 06/25/20 06/25/20 03:48 05:17 12:08 WBC RBC Hgb Hct RDW Lymph % (Auto) Lymph # (Auto) [place] # (Auto) Seg Neuts % (Manual) Lymphocytes % (Manual) Nucleated RBC % Seg Neutrophils # Seg Neutrophils # Man Lymphocytes # (Manual) Monocytes # (Manual) PT INR APTT D-Dimer Heparin Anti-Xa Level ABG pH POC ABG pCO2 29.4 L POC ABG pO2 67.1 L ABG Hemoglobin 11.5 L ABG Oxyhemoglobin ABG Sodium 124.1 L ABG Potassium 4.6 H ABG Chloride ABG Glucose 159 H Carboxyhemoglobin Sodium Potassium Chloride Carbon Dioxide BUN Creatinine Glucose POC Glucose 149 H 150 H Lactic Acid Calcium Magnesium Ferritin AST ALT Lactate Dehydrogenase Total Creatine Kinase C-Reactive Protein Total Protein Albumin Triglycerides Arterial Blood Glucose 159 H Arterial Blood Ionized Calcium 4.2 L Urine Creatinine Urine Chloride Vancomycin Trough Coronavirus (PCR) 06/25/20 06/25/20 06/25/20 16:27 16:35 17:27 WBC RBC Hgb Hct RDW Lymph % (Auto) Lymph # (Auto) [place] # (Auto) Seg Neuts % (Manual) Lymphocytes % (Manual) Nucleated RBC % Seg Neutrophils # Seg Neutrophils # Man Lymphocytes # (Manual) Monocytes # (Manual) PT INR APTT D-Dimer Heparin Anti-Xa Level < 0.10 L ABG pH POC ABG pCO2 POC ABG pO2 ABG Hemoglobin ABG Oxyhemoglobin ABG Sodium ABG Potassium ABG Chloride ABG Glucose Carboxyhemoglobin Sodium Potassium Chloride Carbon Dioxide BUN Creatinine Glucose POC Glucose 143 H 156 H Lactic Acid Calcium Magnesium Ferritin AST ALT Lactate Dehydrogenase Total Creatine Kinase C-Reactive Protein Total Protein Albumin Triglycerides Arterial Blood Glucose Arterial Blood Ionized Calcium Urine Creatinine Urine Chloride Vancomycin Trough Coronavirus (PCR) 06/25/20 06/25/20 06/25/20 20:00 20:55 23:10 WBC 32.7 H RBC 3.06 L Hgb 9.0 L 9.5 L Hct 26.7 L 28.6 L RDW Lymph % (Auto) Lymph # (Auto) [place] # (Auto) Seg Neuts % (Manual) Lymphocytes % (Manual) 2.0 L Nucleated RBC % Seg Neutrophils # Seg Neutrophils # Man 30.7 H Lymphocytes # (Manual) 0.7 L Monocytes # (Manual) 1.3 H PT 17.7 H INR 1.47 H APTT 65.8 H* D-Dimer Heparin Anti-Xa Level ABG pH POC ABG pCO2 POC ABG pO2 ABG Hemoglobin ABG Oxyhemoglobin ABG Sodium ABG Potassium ABG Chloride ABG Glucose Carboxyhemoglobin Sodium Potassium Chloride Carbon Dioxide BUN Creatinine Glucose POC Glucose Lactic Acid Calcium Magnesium Ferritin AST ALT Lactate Dehydrogenase Total Creatine Kinase C-Reactive Protein Total Protein Albumin Triglycerides Arterial Blood Glucose Arterial Blood Ionized Calcium Urine Creatinine Urine Chloride Vancomycin Trough Coronavirus (PCR) 06/25/20 06/26/20 06/26/20 23:14 01:30 03:25 WBC RBC Hgb Hct RDW Lymph % (Auto) Lymph # (Auto) [place] # (Auto) Seg Neuts % (Manual) Lymphocytes % (Manual) Nucleated RBC % Seg Neutrophils # Seg Neutrophils # Man Lymphocytes # (Manual) Monocytes # (Manual) PT INR APTT D-Dimer Heparin Anti-Xa Level < 0.10 L ABG pH POC ABG pCO2 POC ABG pO2 ABG Hemoglobin 11.8 L ABG Oxyhemoglobin ABG Sodium 127.1 L ABG Potassium 5.4 H ABG Chloride ABG Glucose 155 H Carboxyhemoglobin 0.3 L Sodium Potassium Chloride Carbon Dioxide BUN Creatinine Glucose POC Glucose 148 H Lactic Acid Calcium Magnesium Ferritin AST ALT Lactate Dehydrogenase Total Creatine Kinase C-Reactive Protein Total Protein Albumin Triglycerides Arterial Blood Glucose 155 H Arterial Blood Ionized Calcium 4.2 L Urine Creatinine Urine Chloride Vancomycin Trough Coronavirus (PCR) 06/26/20 06/26/20 06/26/20 03:59 05:14 05:47 WBC 36.5 H RBC 3.26 L Hgb 9.7 L Hct 28.2 L RDW Lymph % (Auto) Lymph # (Auto) [place] # (Auto) Seg Neuts % (Manual) 92.0 H Lymphocytes % (Manual) 4.0 L Nucleated RBC % Seg Neutrophils # Seg Neutrophils # Man 33.6 H Lymphocytes # (Manual) Monocytes # (Manual) PT INR APTT D-Dimer Heparin Anti-Xa Level ABG pH POC ABG pCO2 POC ABG pO2 ABG Hemoglobin ABG Oxyhemoglobin ABG Sodium ABG Potassium ABG Chloride ABG Glucose Carboxyhemoglobin Sodium Potassium 5.9 H Chloride Carbon Dioxide 20 L BUN 144 H Creatinine 6.4 H Glucose 149 H POC Glucose 128 H Lactic Acid Calcium 7.6 L Magnesium Ferritin AST ALT Lactate Dehydrogenase Total Creatine Kinase C-Reactive Protein Total Protein Albumin Triglycerides Arterial Blood Glucose Arterial Blood Ionized Calcium Urine Creatinine Urine Chloride Vancomycin Trough Coronavirus (PCR) 06/26/20 05:47 WBC RBC Hgb Hct RDW Lymph % (Auto) Lymph # (Auto) [place] # (Auto) Seg Neuts % (Manual) Lymphocytes % (Manual) Nucleated RBC % Seg Neutrophils # Seg Neutrophils # Man Lymphocytes # (Manual) Monocytes # (Manual) PT 17.4 H INR 1.44 H APTT D-Dimer Heparin Anti-Xa Level ABG pH POC ABG pCO2 POC ABG pO2 ABG Hemoglobin ABG Oxyhemoglobin ABG Sodium ABG Potassium ABG Chloride ABG Glucose Carboxyhemoglobin Sodium Potassium Chloride Carbon Dioxide BUN Creatinine Glucose POC Glucose Lactic Acid Calcium Magnesium Ferritin AST ALT Lactate Dehydrogenase Total Creatine Kinase C-Reactive Protein Total Protein Albumin Triglycerides Arterial Blood Glucose Arterial Blood Ionized Calcium Urine Creatinine Urine Chloride Vancomycin Trough Coronavirus (PCR) Chest x-ray: other (none today) Allied health notes reviewed: nursing
--- NOTE | 2020-06-26 14:56 | Progress Note ---
Assessment and Plan - Patient Problems (1) Acute renal failure Current Visit: Yes Status: Acute Plan to address problem: Acute kidney failure Covid as stated nephropathy -prerenal azotemia versus acute tubular necrosis. Kidney function worsening and patient developed hyperkalemia, refractory acidosis and worsening azotemia. Hemodialysis initiated on June 22. Patient tolerated treatment June 22. On June 23, treatment was cut short by 15 minutes due to tachycardia. Tolerated hemodialysis yesterday June 24 with no problems and 1 L ultrafiltration. Hemodynamic status has improved as patient is now off of vasopressors. Hemodialysis again in the morning. (2) Severe sepsis with septic shock Current Visit: Yes Status: Acute Plan to address problem: Continue antibiotics per infectious disease communications consultant appropriately adjusted to the degree of renal function. Patient is now off of vasopressors. (3) Hyperkalemia Current Visit: Yes Status: Acute Plan to address problem: Improved with dialysis (4) Metabolic acidosis Current Visit: Yes Status: Acute Plan to address problem: Acidosis improving with dialysis. (5) Acute respiratory failure with hypoxia Current Visit: Yes Status: Acute Plan to address problem: Continue respiratory management by pulmonary (6) Pneumonia due to COVID-19 virus Current Visit: Yes Status: Acute Plan to address problem: IV Dexamethasone Supplemental oxygen/Respiratory support as needed Proning as tolerated Remdesevir contra-indicated due to Kidney failure Prophylactic anticoagulation Trend inflammatory markers to assess disease progression and prognosis (7) Transaminitis Current Visit: Yes Status: Acute Plan to address problem: Hypoperfusion injury. Follow-up liver function test Subjective Date of service: 06/26/20 Principal diagnosis: ARF/Septic Shock/COVID-19 PNA, AF with RVR Interval history: Patient was not examined today due to the COVID-19 status to limit exposure of the consulting obstetric assistant and also for PPE preservation. I reviewed multidisciplinary notes and discussed with staff and physicians as needed. Patient is sedated on propofol and fentanyl. He is on anticoagulation with intravenous heparin. Discussed with the nurse on medical floor. Patient is now off of vasopressors. Objective - Exam Narrative Exam: Patient was not examined at the bedside today due to personal protective equipment preservation during the COVID-19 pandemic. Patient is on 2 pressors now - Vital Signs Vital signs: Vital Signs - 12hr 06/26/20 06/26/20 06/26/20 03:00 03:10 03:20 Temperature Pulse Rate 109 H 120 H 126 H Respiratory 20 14 20 Rate Blood Pressure 152/78 152/78 143/65 O2 Sat by Pulse 96 96 96 Oximetry 06/26/20 06/26/20 06/26/20 03:30 03:40 03:50 Temperature Pulse Rate 118 H 118 H 117 H Respiratory 21 28 H 23 Rate Blood Pressure 143/65 125/62 114/60 O2 Sat by Pulse 95 95 95 Oximetry 06/26/20 06/26/20 06/26/20 03:52 04:00 04:10 Temperature 98.4 F Pulse Rate 114 H 129 H Respiratory 21 22 Rate Blood Pressure 113/64 113/64 O2 Sat by Pulse 95 96 Oximetry 06/26/20 06/26/20 06/26/20 04:20 04:30 04:40 Temperature Pulse Rate 117 H 108 H 116 H Respiratory 22 17 24 Rate Blood Pressure 156/81 156/81 169/74 O2 Sat by Pulse 96 96 95 Oximetry 06/26/20 06/26/20 06/26/20 04:50 05:00 05:10 Temperature Pulse Rate 110 H 120 H 118 H Respiratory 18 25 H 22 Rate Blood Pressure 138/74 123/55 123/55 O2 Sat by Pulse 94 94 95 Oximetry 06/26/20 06/26/20 06/26/20 05:20 05:30 05:40 Temperature Pulse Rate 116 H 113 H 119 H Respiratory 25 H 18 27 H Rate Blood Pressure 144/77 125/62 125/62 O2 Sat by Pulse 95 95 95 Oximetry 06/26/20 06/26/20 06/26/20 05:50 06:00 06:10 Temperature Pulse Rate 116 H 124 H 120 H Respiratory 18 28 H 17 Rate Blood Pressure 126/61 120/58 120/58 O2 Sat by Pulse 96 95 96 Oximetry 06/26/20 06/26/20 06/26/20 06:20 06:30 06:40 Temperature Pulse Rate 126 H 122 H 121 H Respiratory 16 21 15 Rate Blood Pressure 127/62 130/70 130/70 O2 Sat by Pulse 96 96 96 Oximetry 06/26/20 06/26/20 06/26/20 06:50 07:00 07:10 Temperature Pulse Rate 128 H 114 H 130 H Respiratory 18 18 23 Rate Blood Pressure 146/68 152/76 146/68 O2 Sat by Pulse 95 96 96 Oximetry 02/06/26/20 06/26/20 07:20 07:30 07:35 Temperature Pulse Rate 141 H 150 H 144 H Respiratory 21 25 H Rate Blood Pressure 170/86 178/90 178/90 O2 Sat by Pulse 96 95 95 Oximetry 06/26/20 06/26/20 06/26/20 07:40 07:50 08:00 Temperature Pulse Rate 145 H 138 H 128 H Respiratory 21 20 21 Rate Blood Pressure 178/90 177/82 177/82 O2 Sat by Pulse 94 93 95 Oximetry 06/26/20 06/26/20 06/26/20 08:10 08:20 08:30 Temperature Pulse Rate 126 H 114 H 119 H Respiratory 19 17 19 Rate Blood Pressure 147/59 141/66 143/68 O2 Sat by Pulse 95 95 95 Oximetry 06/26/20 06/26/20 06/26/20 08:40 08:50 09:00 Temperature Pulse Rate 124 H 127 H 116 H Respiratory 17 19 17 Rate Blood Pressure 143/68 145/63 134/80 O2 Sat by Pulse 95 95 95 Oximetry 06/26/20 06/26/20 06/26/20 09:10 09:20 09:30 Temperature Pulse Rate 132 H 126 H 111 H Respiratory 20 17 18 Rate Blood Pressure 134/80 158/66 158/66 O2 Sat by Pulse 95 95 95 Oximetry 06/26/20 06/26/20 06/26/20 09:40 09:50 10:00 Temperature Pulse Rate 139 H 120 H 125 H Respiratory 29 H 18 28 H Rate Blood Pressure 133/56 138/51 138/51 O2 Sat by Pulse 94 95 95 Oximetry 06/26/20 06/26/20 06/26/20 10:10 10:20 10:30 Temperature Pulse Rate 111 H 130 H 114 H Respiratory 17 16 15 Rate Blood Pressure 115/55 126/58 126/58 O2 Sat by Pulse 96 96 96 Oximetry 06/26/20 06/26/20 06/26/20 10:40 10:50 11:00 Temperature Pulse Rate 123 H 130 H 116 H Respiratory 19 22 27 H Rate Blood Pressure 144/64 155/81 155/81 O2 Sat by Pulse 95 95 93 Oximetry 06/26/20 06/26/20 06/26/20 11:10 11:20 11:30 Temperature Pulse Rate 138 H 123 H 131 H Respiratory 21 20 25 H Rate Blood Pressure 159/72 178/85 172/75 O2 Sat by Pulse 94 95 95 Oximetry 06/26/20 06/26/20 06/26/20 11:40 11:50 12:00 Temperature Pulse Rate 129 H 124 H 131 H Respiratory 22 23 22 Rate Blood Pressure 172/75 180/76 180/76 O2 Sat by Pulse 95 95 95 Oximetry 06/26/20 06/26/20 06/26/20 12:10 12:20 12:30 Temperature Pulse Rate 130 H 139 H 131 H Respiratory 20 18 20 Rate Blood Pressure 181/77 169/70 167/67 O2 Sat by Pulse 95 95 95 Oximetry 06/26/20 06/26/20 06/26/20 12:40 12:50 13:00 Temperature Pulse Rate 124 H 126 H 127 H Respiratory 22 19 21 Rate Blood Pressure 167/67 177/74 166/61 O2 Sat by Pulse 94 95 94 Oximetry 06/26/20 06/26/20 06/26/20 13:10 13:20 13:30 Temperature Pulse Rate 131 H 128 H 123 H Respiratory 17 19 19 Rate Blood Pressure 166/61 146/83 156/74 O2 Sat by Pulse 95 95 95 Oximetry 06/26/20 06/26/20 06/26/20 13:40 13:50 14:00 Temperature Pulse Rate 129 H 131 H 120 H Respiratory 21 25 H 21 Rate Blood Pressure 156/74 153/77 163/73 O2 Sat by Pulse 95 93 94 Oximetry 06/26/20 06/26/20 14:10 14:20 Temperature Pulse Rate 122 H 119 H Respiratory 20 20 Rate Blood Pressure 163/73 161/68 O2 Sat by Pulse 94 94 Oximetry - Lab 06/26/20 05:47 06/26/20 03:59 Most recent lab results ABG pH 7.370 (7.320-7.450) 06/26/20 03:25 Calcium 7.6 mg/dL (8.4-10.2) L 06/26/20 03:59 Magnesium 2.70 mg/dL (1.7-2.3) H 06/18/20 20:33 Urine Creatinine 192.4 mg/dL (0.1-20.0) H 06/18/20 15:00 Urine Sodium 28 mmol/L 06/18/20 15:00 Medications & Allergies - Medications Allergies/Adverse Reactions: Allergies No Known Allergies Allergy (Unverified 06/17/20 14:24) Home Medications: Home Medications Medication Instructions Recorded Confirmed Last Taken Type Losartan/Hydrochlorothiazide 1 each PO QDAY 06/19/20 06/19/20 Unknown History [Losartan-Hctz 100-25 mg Tab] amLODIPine [Norvasc] 5 mg PO DAILY 06/19/20 06/19/20 Unknown History Active Medications: Generic Name Dose Route Start Last Admin Trade Name Freq PRN Reason Stop Dose Admin Acetaminophen 650 mg 06/17/20 14:17 06/19/20 06:42 Acetaminophen 325 Mg Tab PO 650 mg Q4H PRN Administration Pain MILD(1-3)/Fever >100.5/ROBERTS Amiodarone HCl 400 mg 06/25/20 20:00 06/26/20 13:36 Amiodarone 200 Mg Tab PO 400 mg TID CONNOR Administration Lipase/Protease/Amylase 1 each 06/19/20 12:15 Lipase 10,500/Protease 25,000/Amylase 43,750 (Units) Dr Kulkarni FEEDTUBE PRN PRN For Clogged Feeding Tube Ascorbic Acid 250 mg 06/17/20 22:00 06/26/20 10:03 Ascorbic Acid 250 Mg Tab PO 250 mg BID CONNOR Administration Cholecalciferol 1,000 unit 06/18/20 10:00 06/26/20 10:03 Cholecalciferol (Vit D3) 1000 Unit (25 Mcg) Tab PO 1,000 unit DAILY CONNOR Administration Dexamethasone 6 mg 06/18/20 22:00 06/26/20 10:04 Dexamethasone 4 Mg/Ml Vial IV 06/28/20 10:01 6 mg Q12HR CONNOR Administration Docusate Sodium 100 mg 06/23/20 15:00 06/26/20 10:03 Docusate Sodium 100 Mg/10 Ml Oral Liqd FEEDTUBE 100 mg BID CONNOR Administration Famotidine 20 mg 06/20/20 11:00 06/26/20 10:04 Famotidine 20 Mg/2 Ml Inj IV 20 mg DAILY CONNOR Administration Fentanyl 50 mcg 06/18/20 01:02 06/18/20 01:22 Fentanyl 100 Mcg/2 Ml Inj IV 50 mcg Q10MIN PRN Administration ANALGESIA Heparin Sodium (Porcine) 4,500 unit 06/19/20 11:34 06/25/20 19:22 Heparin 10,000 Units/10 Ml Vial 40 unit/kg (4500 unit) 4,500 unit IV Administration Q6H PRN Anti-Xa Assay < 0.1 units/ml Heparin Sodium (Porcine) 5,000 unit 06/22/20 12:53 Heparin 10,000 Unit/1 Ml Vial IV PAM PRN hemodialysis Hydrophilic Ointment 1 applic 06/17/20 22:52 Lip Therapy Vaseline TP Q2HR PRN Dry Lips Norepinephrine 4 mg in 250 mls @ 7.5 mls/hr 06/18/20 00:00 06/24/20 09:30 Levophed Drip 4 Mg/Ns 250 Ml IV 0 mcg/min TITR CONNOR 0 mls/hr Titration Protocol 2 MCG/MIN Propofol 1,000 mg in 100 mls @ 3.402 mls/hr 06/18/20 01:00 06/26/20 11:56 Diprivan 10 Mg/Ml IV 20 mcg/kg/min TITR CONNOR 13.608 mls/hr Administration Protocol 5 MCG/KG/MIN Fentanyl Citrate 2,000 mcg in 100 mls @ 5.67 mls/hr 06/18/20 02:00 06/26/20 11:47 Fentanyl Drip Premix IV 2 mcg/kg/hr TITR CONNOR 11.34 mls/hr Administration Protocol 1 MCG/KG/HR Vasopressin 20 unit/ Sodium 101 mls @ 9.09 mls/hr 06/18/20 10:00 06/24/20 18:05 Chloride IV 0 units/min TITR CONNOR 0 mls/hr Titration Protocol 0.03 UNITS/MIN Sodium Chloride 500 mls @ 1 mls/hr 06/18/20 09:38 06/19/20 21:37 Nacl 0.9% 500 Ml IV 0 mls/hr DIRECT PRN Infusion ARTERIAL LINE FLUSH Heparin Sodium/Sodium Chloride 25,000 unit in 500 mls @ 30 mls/hr 06/19/20 12:00 06/25/20 19:49 Heparin/ 0.45% Nacl-25,000 Unit/500 Ml IV 0 units/hr TITR CONNOR 0 mls/hr Titration Protocol 1,500 UNITS/HR Cefepime HCl 2 gm in 100 mls @ 200 mls/hr 06/21/20 10:00 06/26/20 10:03 Cefepime/Ns 2 Gm/100 Ml IV 06/27/20 10:29 200 mls/hr Q24HR CONNOR Administration Protocol Sodium Chloride 100 mls @ 999 mls/hr 06/22/20 12:53 Nacl 0.9% IV PAM PRN Hypotension Insulin Human Regular 0 units 06/18/20 12:00 06/26/20 13:07 Insulin Regular, Human 100 Units/1 Ml SUB-Q Not Given Q6HR CONNOR Protocol Lorazepam 1 mg 06/17/20 17:05 06/17/20 17:10 Lorazepam 2 Mg/Ml Vial IV 1 mg BID PRN Administration Anxiety Metoclopramide HCl 5 mg 06/22/20 13:00 06/26/20 13:36 Metoclopramide 10 Mg/2 Ml Inj IV 5 mg Q6H CONNOR Administration Multi-Ingred Cream/Lotion/Oil/Oint 1 applic 06/17/20 22:52 Mineral Oil/Petrolatum, White Ophth Oint 3.5 Gm OU Q4HR PRN Dry Eye(s) Ondansetron HCl 4 mg 06/17/20 14:17 Ondansetron 4 Mg/2 Ml Inj IV Q8H PRN Nausea And Vomiting Polyethylene Glycol 17 gm 06/23/20 15:00 06/26/20 10:04 Polyethylene Glycol 3350 17 Gm Powder PO 17 gm QDAY CONNOR Administration Simple Syrup 15 ml 06/19/20 12:15 Simple Syrup 15 Ml FEEDTUBE PRN PRN Hypoglycemia Simple Syrup 30 ml 06/19/20 12:15 Simple Syrup 15 Ml FEEDTUBE PRN PRN Hypoglycemia Sodium Bicarbonate 325 mg 06/19/20 12:15 Sodium Bicarbonate 325 Mg Tab FEEDTUBE PRN PRN For Clogged Feeding Tube Sodium Chloride 10 ml 06/17/20 22:00 06/26/20 09:01 Sodium Chloride 0.9% 10 Ml Flush Syringe IV 10 ml BID CONNOR Administration Sodium Chloride 10 ml 06/17/20 14:17 Sodium Chloride 0.9% 10 Ml Flush Syringe IV PRN PRN LINE FLUSH Zinc Sulfate 220 mg 06/17/20 22:00 06/26/20 10:03 Zinc Sulfate 220 Mg Cap PO 220 mg BID CONNOR Administration
--- NOTE | 2020-06-26 19:01 | Progress Note ---
Assessment and Plan Continue loading doses of amiodarone. - Patient Problems (1) Acute respiratory failure with hypoxia Current Visit: Yes Status: Acute (2) Sepsis Current Visit: Yes Status: Acute Qualifiers: Severe sepsis acute organ dysfunction type: acute respiratory failure Severe sepsis shock status: with septic shock (3) Atrial fibrillation with rapid ventricular response Current Visit: Yes Status: Acute (4) Acute renal failure Current Visit: Yes Status: Acute (5) Pneumonia due to COVID-19 virus Current Visit: Yes Status: Acute (6) Elevated LFTs Current Visit: Yes Status: Acute Subjective Date of service: 06/26/20 Principal diagnosis: ARF/Septic Shock/COVID-19 PNA, AF with RVR Interval history: Intubated and mechanically ventilated. In AF with RVR. Objective Vital Signs Vital Signs - 8 hr 06/26/20 06/26/20 06/26/20 11:00 11:10 11:20 Pulse Rate 116 H 138 H 123 H Respiratory 27 H 21 20 Rate Blood Pressure 155/81 159/72 178/85 O2 Sat by Pulse 93 94 95 Oximetry 06/26/20 06/26/20 06/26/20 11:30 11:40 11:50 Pulse Rate 131 H 129 H 124 H Respiratory 25 H 22 23 Rate Blood Pressure 172/75 172/75 180/76 O2 Sat by Pulse 95 95 95 Oximetry 06/26/20 06/26/20 06/26/20 12:00 12:10 12:20 Pulse Rate 131 H 130 H 139 H Respiratory 22 20 18 Rate Blood Pressure 180/76 181/77 169/70 O2 Sat by Pulse 95 95 95 Oximetry 06/26/20 06/26/20 06/26/20 12:30 12:40 12:50 Pulse Rate 131 H 124 H 126 H Respiratory 20 22 19 Rate Blood Pressure 167/67 167/67 177/74 O2 Sat by Pulse 95 94 95 Oximetry 06/26/20 06/26/20 06/26/20 13:00 13:10 13:20 Pulse Rate 127 H 131 H 128 H Respiratory 21 17 19 Rate Blood Pressure 166/61 166/61 146/83 O2 Sat by Pulse 94 95 95 Oximetry 06/26/20 06/26/20 06/26/20 13:30 13:40 13:50 Pulse Rate 123 H 129 H 131 H Respiratory 19 21 25 H Rate Blood Pressure 156/74 156/74 153/77 O2 Sat by Pulse 95 95 93 Oximetry 06/26/20 06/26/20 06/26/20 14:00 14:10 14:20 Pulse Rate 120 H 122 H 119 H Respiratory 21 20 20 Rate Blood Pressure 163/73 163/73 161/68 O2 Sat by Pulse 94 94 94 Oximetry 06/26/20 06/26/20 06/26/20 14:30 14:40 14:50 Pulse Rate 133 H 119 H 126 H Respiratory 17 19 18 Rate Blood Pressure 161/68 141/69 134/65 O2 Sat by Pulse 95 94 94 Oximetry 06/26/20 06/26/20 06/26/20 15:00 15:10 15:20 Pulse Rate 120 H 112 H 125 H Respiratory 19 19 18 Rate Blood Pressure 147/73 147/73 152/71 O2 Sat by Pulse 95 95 94 Oximetry 06/26/20 06/26/20 06/26/20 15:30 15:40 15:50 Pulse Rate 123 H 124 H 128 H Respiratory 17 20 17 Rate Blood Pressure 152/71 156/53 147/52 O2 Sat by Pulse 95 95 95 Oximetry 06/26/20 06/26/20 06/26/20 16:00 16:10 16:20 Pulse Rate 120 H 123 H 122 H Respiratory 19 16 18 Rate Blood Pressure 138/61 138/61 148/67 O2 Sat by Pulse 95 95 95 Oximetry 06/26/20 06/26/20 06/26/20 16:30 16:40 16:50 Pulse Rate 127 H 128 H 130 H Respiratory 19 20 24 Rate Blood Pressure 149/58 149/58 152/53 O2 Sat by Pulse 95 95 95 Oximetry 06/26/20 06/26/20 06/26/20 17:00 17:10 17:20 Pulse Rate 124 H 120 H 118 H Respiratory 21 17 21 Rate Blood Pressure 138/62 138/62 147/52 O2 Sat by Pulse 95 95 95 Oximetry 06/26/20 06/26/20 06/26/20 17:30 17:40 17:50 Pulse Rate 116 H 116 H 128 H Respiratory 18 18 22 Rate Blood Pressure 136/61 136/61 147/71 O2 Sat by Pulse 95 95 96 Oximetry 06/26/20 18:01 Pulse Rate 116 H Respiratory 22 Rate Blood Pressure 157/69 O2 Sat by Pulse 95 Oximetry - Physical Examination General: Other (intubated, sedated) Neck: Positive: neck supple Cardiac: Positive: Irregularly Regular, S1/S2 Lungs: Positive: Rhonchi Neuro: Positive: Other (intubated, sedated) Abdomen: Positive: Soft Skin: Negative: Rash - Labs and Meds Coagulation 06/25/20 06/26/20 Range/Units 20:55 05:47 PT 17.7 H 17.4 H (12.2-14.9) Sec. INR 1.47 H 1.44 H (0.87-1.13) APTT 65.8 H* 28.5 (24.2-36.6) Sec. Lipids 06/26/20 Range/Units 03:58 Triglycerides 147 (2-149) mg/dL CBC 06/25/20 06/25/20 06/26/20 Range/Units 20:00 23:10 05:47 WBC 32.7 H 36.5 H (4.5-11.0) K/mm3 RBC 3.06 L 3.26 L (3.65-5.03) M/mm3 Hgb 9.0 L 9.5 L 9.7 L (11.8-15.2) gm/dl Hct 26.7 L 28.6 L 28.2 L (35.5-45.6) % Plt Count 193 203 (140-440) K/mm3 Comprehensive Metabolic Panel 06/26/20 Range/Units 03:59 Sodium 140 (137-145) mmol/L Potassium 5.9 H (3.6-5.0) mmol/L Chloride 99.6 (98-107) mmol/L Carbon Dioxide 20 L (22-30) mmol/L BUN 144 H (9-20) mg/dL Creatinine 6.4 H (0.8-1.3) mg/dL Glucose 149 H (75-100) mg/dL Calcium 7.6 L (8.4-10.2) mg/dL - Imaging and Cardiology EKG: report reviewed, image reviewed - EKG Sinus rhythms and dysrhythmias: sinus tachycardia - Allied health notes Allied health notes reviewed: nursing
[2020-06-27] MEDS: METOCLOPRAMIDE 10 MG/2 ML INJ IV SCH ×4 (00:22→20:01)
[2020-06-27] MEDS: INSULIN REGULAR, HUMAN 100 UNITS/1 ML SUB-Q SCH ×5 (00:22→23:53)
[2020-06-27] MEDS: fentaNYL DRIP Premix 2,000 MCG/100 ML BAG IV SCH ×3 (04:43→21:29)
--- NOTE | 2020-06-27 04:53 | XRay Report ---
CHEST 1 VIEW 06/27/2020 3:21 AM INDICATION / CLINICAL INFORMATION: Aspiration. COMPARISON: 06/24/2020 FINDINGS: SUPPORT DEVICES: Endotracheal and nasogastric tubes project in expected position HEART / MEDIASTINUM: No significant abnormality. LUNGS / PLEURA: Bilateral airspace consolidation has slightly worsened No pneumothorax. ADDITIONAL FINDINGS: No significant additional findings. IMPRESSION: 1. Worsening bilateral pneumonia Signer Name: Chaitanya Beaver MD Signed: 06/27/2020 4:49 AM Workstation Name: [id number]
[2020-06-27 05:00] LABS: Hematocrit 26.4 % (35.5-45.6); Hemoglobin 8.7 gm/dl (11.8-15.2)
--- NOTE | 2020-06-27 07:12 | Progress Note ---
Assessment and Plan The high probability of a clinically significant, sudden or life threatening deterioration of the [[facility], [employer], 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 The aggregate critical care time was [42] minutes. This time is in addition to time spent performing reported procedures but includes the following: [x] Data Review and interpretation [x] Patient assessment and monitoring of vital signs [x] Documentation [x] Medication orders and management Assessment and Plan Assessment and plan: 59-year-old white male who was admitted for pneumonia secondary to Covid with associated respiratory failure and sepsis. Acute metabolic encephalopathy -Due to severe sepsis and severe hypoxia -CT head ordered (patient is too unstable to do the scan), currently intubated, continue supportive care with frequent neuro check Acute hypoxic respiratory failure -Due to severe COVID-19 pneumonia -Intubated following admission overnight as patient was unable to maintain oxygenation with 100% FiO2 with BiPAP -Critical care following, frequent nebulizer breathing treatment, empiric steroid Severe septic shock -Patient currently on 2 pressor support -Wean off as tolerated COVID-19 pneumonia -Follow inflammatory markers, ID consulted --Patient initially tested positive for COVID-19 virus about 2 weeks before this admission -CXR shows patchy parenchymal disease which represent pulmonary edema or atypical pneumonia -Placed on dexamethasone for total 10 days and completed remdesivir total 5 days -Continue empiric antibiotics for now per ID recommendation -Droplet/contact isolation -Continue SPO2 monitoring -Supplemental oxygen as needed -Pulmonary hygiene, Prone intermittently to improve oxygenation -Vitamin C, vitamin D, zinc -Anticoagulation per protocol -Lasix IV as needed to prevent pulmonary edema GIRISH, likely ATN -Follow BMP daily, avoid nephrotoxins -Consulted nephrology, follow recommendations -Renal function continues to decline, started on hemodialysis since 06/22/20 hypokalemia, repleted Supraventricular tachycardia/paroxysmal atrial fibrillation -likely due to severe sepsis -Patient currently on 2 pressor, will initiate IV amiodarone drip for rate control if needed -Consulted cardiology, echo ordered currently pending -Placed on heparin drip Elevated LFT, due to shock liver from severe sepsis and COVID-19 infection -Continue to trend Morbid obesity, -Associated with poor outcome with Covid infection -need counseling for diet and exercise and healthy lifestyles once clinically stable as outpatient DVT prophylaxis, per Covid protocol Full CODE STATUS Poor prognosis Subjective Date of service: 06/26/20 Principal diagnosis: ARF/Septic Shock/COVID-19 PNA, AF with RVR Interval history: 59 YO Male with Obesity Hypoventilation Syndrome presents to ED for evaluation. Patient reports I feel weak and tired". Patient states that he has experienced generalized weakness, malaise, fatigue, decreased exercise tolerance, and shortness of breath over the past 1 week with persistently worsening symptoms with over the same timeframe. Patient states that he underwent a car coronavirus test over the weekend and was found to be coronavirus positive. EMS was notified and upon arrival the patient was found to be in distress with a pulse oximetry in the 60s. The patient was placed on supplemental oxygen and transported to [facility] for further care and evaluation of the aforementioned symptoms. Patient seen and evaluated in the emergency department. All lab imaging studies reviewed. Patient found to have a pulse oximetry of 76% on room air which is consistent with acute hypoxemic respiratory failure. Patient in itiated on supplemental oxygen with mild improvement in symptoms. Patient also underwent chest x-ray and was found to have bilateral pneumonia complicated by sepsis, as well as acidosis. Patient admitted to medical floor and initiated on coronavirus protocol as well as pneumonia protocol. Patient denies fever, chills, chest pain, palpitations, productive cough, skin rash, recent ill contacts. No prior admission for review. No medication listed at time of admission for reconciliation. Advanced care planning conducted in ED. Patient admitted for respiratory failure with hypoxia Patient was intubated on 06/17/2020 daily course: 06/18: Patient got intubated overnight. Patient was placed on BiPAP to maintain oxygenation with 100% FiO2 but apparently he found to take off his argueta which made his oxygen saturation go down at 60s/50s and patient was found altered mental status. Code met was called immediately. Patient was transferred to ICU and intubated, patient currently on 2 pressors, intubated with 100% FiO2, renal function noted to be decline, nephrology consulted. Discussed with [place] physician Dr. Thompson and requested call back on Saturday. Poor prognosis, continue to monitor with aggressive supportive care. Also called family/ to update clinical status. 06/19: Repeat COVID test was positive. cont cefepime, remdesivir per ID recommendation. follow inflammatory markers, cbc, bmp. placed on heparin drip for atrial fib 06/20: Remains on mechanical ventilation, on 2 pressors, on heparin drip. discussed with and daughter by phone. Renal function declining. cont supportive care for now. 06/21: Renal function cont to decline, urine outpt sig decreased. started on lasix 80mg BID, plan to follow urine output, if no improvement patient need to start on HD. called and daughter today. updated all clinical details 06/22: Renal function continues to decline with uremia and hyperkalemia. Will need to proceed with hemodialysis. Nephrology discussed with the family and they agrees for the hemodialysis. Patient remains on pressor support and mechanical ventilation. Vas-Cath placed today by vascular started on hemodialysis today. 06/23: 2nd round of HD today, remains on 2 pressors. per RN not tolerating TF, has no record of BM since 06/18. start on stool softner. follow cbc/bmp. updated family( and daughter) by phone -all question answered to best of my knowledge and to their satisfaction. Patient remains critically ill with a very poor prognosis. 06/24: Continue supportive care, Very poor prognosis, [employer] to discuss with family in am due to the futility of the condition. 06/25/2020 continue supportive care very poor prognosis History Interval history: patient seen and examined, remains on ventilator Objective - Exam Narrative Exam: Patient intubated - Constitutional Vitals: Vital Signs - 12hr 06/26/20 06/26/20 06/26/20 19:20 19:30 19:40 Temperature Pulse Rate 119 H 136 H 131 H Respiratory 16 19 17 Rate Blood Pressure 146/62 153/63 153/63 O2 Sat by Pulse 96 96 96 Oximetry 06/26/20 06/26/20 06/26/20 19:50 20:00 20:10 Temperature 99.7 F H Pulse Rate 117 H 115 H 115 H Respiratory 17 30 H 21 Rate Blood Pressure 142/70 135/61 135/61 O2 Sat by Pulse 96 96 95 Oximetry 06/26/20 06/26/20 06/26/20 20:20 20:30 20:32 Temperature Pulse Rate 133 H 121 H 120 H Respiratory 17 19 Rate Blood Pressure 138/59 138/59 161/72 O2 Sat by Pulse 96 96 95 Oximetry 06/26/20 06/26/20 06/26/20 20:40 20:50 21:00 Temperature Pulse Rate 134 H 126 H 142 H Respiratory 17 21 25 H Rate Blood Pressure 161/72 164/71 126/67 O2 Sat by Pulse 93 95 95 Oximetry 06/26/20 06/26/20 06/26/20 21:10 21:20 21:30 Temperature Pulse Rate 126 H 124 H 128 H Respiratory 19 19 18 Rate Blood Pressure 126/67 129/60 139/64 O2 Sat by Pulse 96 95 95 Oximetry 06/26/20 06/26/20 06/26/20 21:40 21:50 22:00 Temperature Pulse Rate 116 H 108 H 119 H Respiratory 30 H 15 17 Rate Blood Pressure 139/64 125/55 127/58 O2 Sat by Pulse 95 95 96 Oximetry 06/26/20 06/26/20 06/26/20 22:04 22:10 22:20 Temperature Pulse Rate 107 H 117 H 128 H Respiratory 22 23 26 H Rate Blood Pressure 127/58 127/58 129/57 O2 Sat by Pulse 95 95 95 Oximetry 06/26/20 06/26/20 06/26/20 22:30 22:40 22:50 Temperature Pulse Rate 118 H 131 H 124 H Respiratory 26 H 18 17 Rate Blood Pressure 145/63 145/63 130/63 O2 Sat by Pulse 96 96 95 Oximetry 06/26/20 06/26/20 06/26/20 23:00 23:10 23:20 Temperature Pulse Rate 117 H 118 H 133 H Respiratory 18 22 23 Rate Blood Pressure 130/63 143/64 154/74 O2 Sat by Pulse 96 95 96 Oximetry 06/26/20 06/26/20 06/26/20 23:30 23:40 23:50 Temperature Pulse Rate 118 H 133 H 113 H Respiratory 27 H 30 H 30 H Rate Blood Pressure 136/59 154/74 127/60 O2 Sat by Pulse 96 96 95 Oximetry 06/26/20 06/26/20 06/27/20 23:55 23:56 00:00 Temperature 99.1 F Pulse Rate 125 H 116 H Respiratory 26 H Rate Blood Pressure 127/60 122/62 O2 Sat by Pulse 95 96 Oximetry 06/27/20 06/27/20 06/27/20 00:10 00:20 00:30 Temperature Pulse Rate 121 H 109 H 124 H Respiratory 26 H 26 H 17 Rate Blood Pressure 122/62 132/67 144/72 O2 Sat by Pulse 96 96 96 Oximetry 06/27/20 06/27/20 06/27/20 00:40 00:50 01:00 Temperature Pulse Rate 118 H 116 H 128 H Respiratory 20 26 H 25 H Rate Blood Pressure 144/72 145/62 139/60 O2 Sat by Pulse 96 96 96 Oximetry 06/27/20 06/27/20 06/27/20 01:10 01:20 01:30 Temperature Pulse Rate 112 H 116 H 120 H Respiratory 28 H 29 H 25 H Rate Blood Pressure 139/60 129/64 121/56 O2 Sat by Pulse 95 96 96 Oximetry 06/27/20 06/27/20 06/27/20 01:40 01:50 02:00 Temperature Pulse Rate 113 H 116 H 120 H Respiratory 28 H 32 H 28 H Rate Blood Pressure 121/56 115/49 111/43 O2 Sat by Pulse 95 96 95 Oximetry 06/27/20 06/27/20 06/27/20 02:10 02:20 02:30 Temperature Pulse Rate 102 H 105 H 104 H Respiratory 27 H 28 H 30 H Rate Blood Pressure 111/43 107/49 112/46 O2 Sat by Pulse 96 96 95 Oximetry 06/27/20 06/27/20 06/27/20 02:40 02:50 03:00 Temperature Pulse Rate 107 H 111 H 109 H Respiratory 24 30 H 20 Rate Blood Pressure 112/46 107/44 91/51 O2 Sat by Pulse 96 96 95 Oximetry 06/27/20 06/27/20 06/27/20 03:10 03:20 03:30 Temperature Pulse Rate 109 H 112 H 107 H Respiratory 31 H 23 22 Rate Blood Pressure 91/51 91/52 97/52 O2 Sat by Pulse 96 96 96 Oximetry 06/27/20 06/27/20 06/27/20 03:34 03:40 03:50 Temperature 98.1 F Pulse Rate 111 H 107 H Respiratory 30 H 27 H Rate Blood Pressure 97/52 110/52 O2 Sat by Pulse 96 96 Oximetry 06/27/20 06/27/20 06/27/20 04:00 04:10 04:15 Temperature Pulse Rate 99 H 118 H 115 H Respiratory 30 H 22 Rate Blood Pressure 116/42 116/42 125/72 O2 Sat by Pulse 96 96 96 Oximetry 06/27/20 06/27/20 06/27/20 04:20 04:30 04:40 Temperature Pulse Rate 130 H 130 H 126 H Respiratory 17 27 H 24 Rate Blood Pressure 125/72 125/72 169/81 O2 Sat by Pulse 96 98 96 Oximetry 06/27/20 06/27/20 06/27/20 04:50 05:00 05:10 Temperature Pulse Rate 115 H 125 H 117 H Respiratory 21 17 20 Rate Blood Pressure 181/82 181/82 145/73 O2 Sat by Pulse 98 94 95 Oximetry 06/27/20 06/27/20 06/27/20 05:20 05:30 05:40 Temperature Pulse Rate 119 H 109 H 127 H Respiratory 23 22 26 H Rate Blood Pressure 143/66 141/69 141/69 O2 Sat by Pulse 95 95 96 Oximetry 06/27/20 06/27/20 06/27/20 05:50 06:00 06:10 Temperature Pulse Rate 114 H 124 H 107 H Respiratory 30 H 18 25 H Rate Blood Pressure 142/64 127/68 127/68 O2 Sat by Pulse 96 96 96 Oximetry 06/27/20 06/27/20 06/27/20 06:20 06:30 06:40 Temperature Pulse Rate 112 H 118 H 118 H Respiratory 24 30 H 31 H Rate Blood Pressure 125/62 125/60 125/60 O2 Sat by Pulse 96 96 95 Oximetry General appearance: Present: no acute distress, well-nourished - EENT Eyes: PERRL, EOM intact ENT: hearing intact, clear oral mucosa Ears: bilateral: normal - Neck Neck: supple, normal ROM - Respiratory Respiratory effort: normal Respiratory: bilateral: CTA - Breasts Breasts: normal - Cardiovascular Rhythm: regular Heart Sounds: Present: S1 & S2. Absent: gallop, rub Extremities: pulses intact, No edema, normal color, Full ROM - Gastrointestinal General gastrointestinal: Present: soft, non-tender, non-distended, normal bowel sounds - Genitourinary Male genitourinary: normal - Integumentary Integumentary: clear, warm, dry - Musculoskeletal Musculoskeletal: 1, strength equal bilaterally - Neurologic Neurologic: moves all extremities - Psychiatric Psychiatric: memory intact, appropriate mood/affect, intact judgment & insight - Labs CBC & Chem 7: 06/27/20 04:00 06/26/20 03:59 Labs: Abnormal lab results 06/26/20 06/26/20 06/26/20 Range/Units 05:14 05:47 12:47 WBC 36.5 H (4.5-11.0) K/mm3 RBC 3.26 L (3.65-5.03) M/mm3 Hgb 9.7 L (11.8-15.2) gm/dl Hct 28.2 L (35.5-45.6) % Seg Neuts % (Manual) 92.0 H (40.0-70.0) % Lymphocytes % (Manual) 4.0 L (13.4-35.0) % Seg Neutrophils # Man 33.6 H (1.8-7.7) K/mm3 ABG pH (7.320-7.450) ABG Hemoglobin (12.0-17.5) ABG Sodium (136.0-145.0) mmol/L ABG Potassium (3.40-4.50) mmol/L ABG Glucose (65-95) mg/dL POC Glucose 128 H 124 H (70-105) mg/dL Arterial Blood Glucose (65-95) mg/dL Arterial Blood Ionized Calcium (4.6-5.3) mg/dL 06/26/20 06/27/20 06/27/20 Range/Units 17:42 03:32 04:00 WBC (4.5-11.0) K/mm3 RBC (3.65-5.03) M/mm3 Hgb 8.7 L (11.8-15.2) gm/dl Hct 26.4 L (35.5-45.6) % Seg Neuts % (Manual) (40.0-70.0) % Lymphocytes % (Manual) (13.4-35.0) % Seg Neutrophils # Man (1.8-7.7) K/mm3 ABG pH 7.298 L (7.320-7.450) ABG Hemoglobin 9.6 L (12.0-17.5) ABG Sodium 124.4 L (136.0-145.0) mmol/L ABG Potassium 6.6 H (3.40-4.50) mmol/L ABG Glucose 136 H (65-95) mg/dL POC Glucose 127 H (70-105) mg/dL Arterial Blood Glucose 136 H (65-95) mg/dL Arterial Blood Ionized Calcium 4.1 L (4.6-5.3) mg/dL HEART Score - HEART Score Troponin: Troponin T < 0.010 ng/mL (0.00-0.029) 06/17/20 12:33
[2020-06-27] MEDS: AMIODARONE 200 MG TAB PO SCH ×3 (08:13→20:00)
[2020-06-27] MEDS ORDERED: SODIUM CHLORIDE 0.9% 100 ML IV PRN (08:30)
--- NOTE | 2020-06-27 09:02 | Progress Note ---
Assessment and Plan - Patient Problems (1) Acute renal failure Current Visit: Yes Status: Acute Plan to address problem: Acute kidney failure Covid as stated nephropathy -prerenal azotemia versus acute tubular necrosis. Kidney function worsening and patient developed hyperkalemia, refractory acidosis and worsening azotemia. Hemodialysis initiated on June 22. Patient tolerated treatment June 22. On June 23, treatment was cut short by 15 minutes due to tachycardia. Tolerated hemodialysis June 24 with no problems and 1 L ultrafiltration. Hemodynamic status has improved as patient is now off of vasopressors. Hemodialysis this morning attempt 1 to 2 L ultrafiltration. (2) Severe sepsis with septic shock Current Visit: Yes Status: Acute Plan to address problem: Continue antibiotics per infectious disease oracle drm consultant appropriately adjusted to the degree of renal function. Patient is now off of vasopressors. (3) Hyperkalemia Current Visit: Yes Status: Acute Plan to address problem: Improved with dialysis (4) Metabolic acidosis Current Visit: Yes Status: Acute Plan to address problem: Acidosis improving with dialysis. (5) Acute respiratory failure with hypoxia Current Visit: Yes Status: Acute Plan to address problem: Continue respiratory management by pulmonary (6) Pneumonia due to COVID-19 virus Current Visit: Yes Status: Acute Plan to address problem: IV Dexamethasone Supplemental oxygen/Respiratory support as needed Proning as tolerated Remdesevir contra-indicated due to Kidney failure Prophylactic anticoagulation Trend inflammatory markers to assess disease progression and prognosis (7) Transaminitis Current Visit: Yes Status: Acute Plan to address problem: Hypoperfusion injury. Follow-up liver function test Subjective Date of service: 06/27/20 Principal diagnosis: ARF/Septic Shock/COVID-19 PNA, AF with RVR Interval history: Patient was not examined today due to the COVID-19 status to limit exposure of the consulting creative consultant and also for PPE preservation. I reviewed multidisciplinary notes and discussed with staff and physicians as needed. Patient is sedated on propofol and fentanyl. He is on anticoagulation with in travenous heparin. Discussed with the nurse on medical floor. Patient is still off of vasopressors. Objective - Exam Narrative Exam: Patient was not examined at the bedside today due to personal protective equipment preservation during the COVID-19 pandemic. Patient is off pressors now - Vital Signs Vital signs: Vital Signs - 12hr 06/26/20 06/26/20 06/26/20 21:00 21:10 21:20 Temperature Pulse Rate 142 H 126 H 124 H Respiratory 25 H 19 19 Rate Blood Pressure 126/67 126/67 129/60 O2 Sat by Pulse 95 96 95 Oximetry 06/26/20 06/26/20 06/26/20 21:30 21:40 21:50 Temperature Pulse Rate 128 H 116 H 108 H Respiratory 18 30 H 15 Rate Blood Pressure 139/64 139/64 125/55 O2 Sat by Pulse 95 95 95 Oximetry 06/26/20 06/26/20 06/26/20 22:00 22:04 22:10 Temperature Pulse Rate 119 H 107 H 117 H Respiratory 17 22 23 Rate Blood Pressure 127/58 127/58 127/58 O2 Sat by Pulse 96 95 95 Oximetry 06/26/20 06/26/20 06/26/20 22:20 22:30 22:40 Temperature Pulse Rate 128 H 118 H 131 H Respiratory 26 H 26 H 18 Rate Blood Pressure 129/57 145/63 145/63 O2 Sat by Pulse 95 96 96 Oximetry 06/26/20 06/26/20 06/26/20 22:50 23:00 23:10 Temperature Pulse Rate 124 H 117 H 118 H Respiratory 17 18 22 Rate Blood Pressure 130/63 130/63 143/64 O2 Sat by Pulse 95 96 95 Oximetry 06/26/20 06/26/20 06/26/20 23:20 23:30 23:40 Temperature Pulse Rate 133 H 118 H 133 H Respiratory 23 27 H 30 H Rate Blood Pressure 154/74 136/59 154/74 O2 Sat by Pulse 96 96 96 Oximetry 06/26/20 06/26/20 06/26/20 23:50 23:55 23:56 Temperature 99.1 F Pulse Rate 113 H 125 H Respiratory 30 H Rate Blood Pressure 127/60 127/60 O2 Sat by Pulse 95 95 Oximetry 06/27/20 06/27/20 06/27/20 00:00 00:10 00:20 Temperature Pulse Rate 116 H 121 H 109 H Respiratory 26 H 26 H 26 H Rate Blood Pressure 122/62 122/62 132/67 O2 Sat by Pulse 96 96 96 Oximetry 06/27/20 06/27/20 06/27/20 00:30 00:40 00:50 Temperature Pulse Rate 124 H 118 H 116 H Respiratory 17 20 26 H Rate Blood Pressure 144/72 144/72 145/62 O2 Sat by Pulse 96 96 96 Oximetry 06/27/20 06/27/20 06/27/20 01:00 01:10 01:20 Temperature Pulse Rate 128 H 112 H 116 H Respiratory 25 H 28 H 29 H Rate Blood Pressure 139/60 139/60 129/64 O2 Sat by Pulse 96 95 96 Oximetry 06/27/20 06/27/20 06/27/20 01:30 01:40 01:50 Temperature Pulse Rate 120 H 113 H 116 H Respiratory 25 H 28 H 32 H Rate Blood Pressure 121/56 121/56 115/49 O2 Sat by Pulse 96 95 96 Oximetry 06/27/20 06/27/20 06/27/20 02:00 02:10 02:20 Temperature Pulse Rate 120 H 102 H 105 H Respiratory 28 H 27 H 28 H Rate Blood Pressure 111/43 111/43 107/49 O2 Sat by Pulse 95 96 96 Oximetry 06/27/20 06/27/20 06/27/20 02:30 02:40 02:50 Temperature Pulse Rate 104 H 107 H 111 H Respiratory 30 H 24 30 H Rate Blood Pressure 112/46 112/46 107/44 O2 Sat by Pulse 95 96 96 Oximetry 06/27/20 06/27/20 06/27/20 03:00 03:10 03:20 Temperature Pulse Rate 109 H 109 H 112 H Respiratory 20 31 H 23 Rate Blood Pressure 91/51 91/51 91/52 O2 Sat by Pulse 95 96 96 Oximetry 06/27/20 06/27/20 06/27/20 03:30 03:34 03:40 Temperature 98.1 F Pulse Rate 107 H 111 H Respiratory 22 30 H Rate Blood Pressure 97/52 97/52 O2 Sat by Pulse 96 96 Oximetry 06/27/20 06/27/20 06/27/20 03:50 04:00 04:10 Temperature Pulse Rate 107 H 99 H 118 H Respiratory 27 H 30 H 22 Rate Blood Pressure 110/52 116/42 116/42 O2 Sat by Pulse 96 96 96 Oximetry 06/27/20 06/27/20 06/27/20 04:15 04:20 04:30 Temperature Pulse Rate 115 H 130 H 130 H Respiratory 17 27 H Rate Blood Pressure 125/72 125/72 125/72 O2 Sat by Pulse 96 96 98 Oximetry 06/27/20 06/27/20 06/27/20 04:40 04:50 05:00 Temperature Pulse Rate 126 H 115 H 125 H Respiratory 24 21 17 Rate Blood Pressure 169/81 181/82 181/82 O2 Sat by Pulse 96 98 94 Oximetry 06/27/20 06/27/20 06/27/20 05:10 05:20 05:30 Temperature Pulse Rate 117 H 119 H 109 H Respiratory 20 23 22 Rate Blood Pressure 145/73 143/66 141/69 O2 Sat by Pulse 95 95 95 Oximetry 06/27/20 06/27/20 06/27/20 05:40 05:50 06:00 Temperature Pulse Rate 127 H 114 H 124 H Respiratory 26 H 30 H 18 Rate Blood Pressure 141/69 142/64 127/68 O2 Sat by Pulse 96 96 96 Oximetry 06/27/20 06/27/20 06/27/20 06:10 06:20 06:30 Temperature Pulse Rate 107 H 112 H 118 H Respiratory 25 H 24 30 H Rate Blood Pressure 127/68 125/62 125/60 O2 Sat by Pulse 96 96 96 Oximetry 06/27/20 06/27/20 06/27/20 06:40 06:50 07:00 Temperature Pulse Rate 118 H 112 H 110 H Respiratory 31 H 29 H 30 H Rate Blood Pressure 125/60 113/56 108/53 O2 Sat by Pulse 95 96 95 Oximetry 06/27/20 06/27/20 06/27/20 07:10 07:20 07:30 Temperature Pulse Rate 125 H 119 H 106 H Respiratory 30 H 30 H 28 H Rate Blood Pressure 108/53 108/53 98/51 O2 Sat by Pulse 95 96 96 Oximetry 06/27/20 06/27/20 06/27/20 07:40 07:50 08:00 Temperature 98.7 F Pulse Rate 113 H 108 H 107 H Respiratory 30 H 30 H 27 H Rate Blood Pressure 98/51 98/51 93/55 O2 Sat by Pulse 96 96 96 Oximetry 06/27/20 06/27/20 08:10 08:20 Temperature Pulse Rate 101 H 96 H Respiratory 30 H 30 H Rate Blood Pressure 93/55 98/53 O2 Sat by Pulse 96 96 Oximetry - Lab 06/27/20 04:00 06/26/20 03:59 Most recent lab results ABG pH 7.298 (7.320-7.450) L 06/27/20 03:32 Calcium 7.6 mg/dL (8.4-10.2) L 06/26/20 03:59 Magnesium 2.70 mg/dL (1.7-2.3) H 06/18/20 20:33 Urine Creatinine 192.4 mg/dL (0.1-20.0) H 06/18/20 15:00 Urine Sodium 28 mmol/L 06/18/20 15:00 Medications & Allergies - Medications Allergies/Adverse Reactions: Allergies No Known Allergies Allergy (Unverified 06/17/20 14:24) Home Medications: Home Medications Medication Instructions Recorded Confirmed Last Taken Type Losartan/Hydrochlorothiazide 1 each PO QDAY 06/19/20 06/19/20 Unknown History [Losartan-Hctz 100-25 mg Tab] amLODIPine [Norvasc] 5 mg PO DAILY 06/19/20 06/19/20 Unknown History Active Medications: Generic Name Dose Route Start Last Admin Trade Name Freq PRN Reason Stop Dose Admin Acetaminophen 650 mg 06/17/20 14:17 06/19/20 06:42 Acetaminophen 325 Mg Tab PO 650 mg Q4H PRN Administration Pain MILD(1-3)/Fever >100.5/ROBERTS Amiodarone HCl 400 mg 06/25/20 20:00 06/27/20 08:13 Amiodarone 200 Mg Tab PO 400 mg TID CONNOR Administration Lipase/Protease/Amylase 1 each 06/19/20 12:15 Lipase 10,500/Protease 25,000/Amylase 43,750 (Units) Dr Kulkarni FEEDTUBE PRN PRN For Clogged Feeding Tube Ascorbic Acid 250 mg 06/17/20 22:00 06/26/20 21:57 Ascorbic Acid 250 Mg Tab PO 250 mg BID CONNOR Administration Cholecalciferol 1,000 unit 06/18/20 10:00 06/26/20 10:03 Cholecalciferol (Vit D3) 1000 Unit (25 Mcg) Tab PO 1,000 unit DAILY CONNOR Administration Dexamethasone 6 mg 06/18/20 22:00 06/26/20 21:57 Dexamethasone 4 Mg/Ml Vial IV 06/28/20 10:01 6 mg Q12HR CONNOR Administration Docusate Sodium 100 mg 06/23/20 15:00 06/26/20 21:57 Docusate Sodium 100 Mg/10 Ml Oral Liqd FEEDTUBE 100 mg BID CONNOR Administration Famotidine 20 mg 06/20/20 11:00 06/26/20 10:04 Famotidine 20 Mg/2 Ml Inj IV 20 mg DAILY CONNOR Administration Fentanyl 50 mcg 06/18/20 01:02 06/18/20 01:22 Fentanyl 100 Mcg/2 Ml Inj IV 50 mcg Q10MIN PRN Administration ANALGESIA Heparin Sodium (Porcine) 4,500 unit 06/19/20 11:34 06/25/20 19:22 Heparin 10,000 Units/10 Ml Vial 40 unit/kg (4500 unit) 4,500 unit IV Administration Q6H PRN Anti-Xa Assay < 0.1 units/ml Heparin Sodium (Porcine) 5,000 unit 06/22/20 12:53 Heparin 10,000 Unit/1 Ml Vial IV PAM PRN hemodialysis Hydrophilic Ointment 1 applic 06/17/20 22:52 Lip Therapy Vaseline TP Q2HR PRN Dry Lips Norepinephrine 4 mg in 250 mls @ 7.5 mls/hr 06/18/20 00:00 06/24/20 09:30 Levophed Drip 4 Mg/Ns 250 Ml IV 0 mcg/min TITR CONNOR 0 mls/hr Titration Protocol 2 MCG/MIN Propofol 1,000 mg in 100 mls @ 3.402 mls/hr 06/18/20 01:00 06/27/20 04:50 Diprivan 10 Mg/Ml IV 25 mcg/kg/min TITR CONNOR 17.01 mls/hr Titration Protocol 5 MCG/KG/MIN Fentanyl Citrate 2,000 mcg in 100 mls @ 5.67 mls/hr 06/18/20 02:00 06/27/20 04:43 Fentanyl Drip Premix IV 2 mcg/kg/hr TITR CONONR 11.34 mls/hr Administration Protocol 1 MCG/KG/HR Vasopressin 20 unit/ Sodium 101 mls @ 9.09 mls/hr 06/18/20 10:00 06/24/20 18:05 Chloride IV 0 units/min TITR CONNOR 0 mls/hr Titration Protocol 0.03 UNITS/MIN Sodium Chloride 500 mls @ 1 mls/hr 06/18/20 09:38 06/19/20 21:37 Nacl 0.9% 500 Ml IV 0 mls/hr DIRECT PRN Infusion ARTERIAL LINE FLUSH Heparin Sodium/Sodium Chloride 25,000 unit in 500 mls @ 30 mls/hr 06/19/20 12:00 06/25/20 19:49 Heparin/ 0.45% Nacl-25,000 Unit/500 Ml IV 0 units/hr TITR CONNOR 0 mls/hr Titration Protocol 1,500 UNITS/HR Cefepime HCl 2 gm in 100 mls @ 200 mls/hr 06/21/20 10:00 06/26/20 10:03 Cefepime/Ns 2 Gm/100 Ml IV 06/27/20 10:29 200 mls/hr Q24HR CONNOR Administration Protocol Sodium Chloride 100 mls @ 999 mls/hr 06/27/20 08:30 Nacl 0.9% IV PAM PRN Hypotension Insulin Human Regular 0 units 06/18/20 12:00 06/27/20 06:26 Insulin Regular, Human 100 Units/1 Ml SUB-Q Not Given Q6HR [facility] Protocol Lorazepam 1 mg 06/17/20 17:05 06/17/20 17:10 Lorazepam 2 Mg/Ml Vial IV 1 mg BID PRN Administration Anxiety Metoclopramide HCl 5 mg 06/22/20 13:00 06/27/20 06:25 Metoclopramide 10 Mg/2 Ml Inj IV 5 mg Q6H CONNOR Administration Multi-Ingred Cream/Lotion/Oil/Oint 1 applic 06/17/20 22:52 Mineral Oil/Petrolatum, White Ophth Oint 3.5 Gm OU Q4HR PRN Dry Eye(s) Ondansetron HCl 4 mg 06/17/20 14:17 Ondansetron 4 Mg/2 Ml Inj IV Q8H PRN Nausea And Vomiting Polyethylene Glycol 17 gm 06/23/20 15:00 06/26/20 10:04 Polyethylene Glycol 3350 17 Gm Powder PO 17 gm QDAY CONNOR Administration Simple Syrup 15 ml 06/19/20 12:15 Simple Syrup 15 Ml FEEDTUBE PRN PRN Hypoglycemia Simple Syrup 30 ml 06/19/20 12:15 Simple Syrup 15 Ml FEEDTUBE PRN PRN Hypoglycemia Sodium Bicarbonate 325 mg 06/19/20 12:15 Sodium Bicarbonate 325 Mg Tab FEEDTUBE PRN PRN For Clogged Feeding Tube Sodium Chloride 10 ml 06/17/20 22:00 06/27/20 07:28 Sodium Chloride 0.9% 10 Ml Flush Syringe IV Not Given BID CONNOR Sodium Chloride 10 ml 06/17/20 14:17 Sodium Chloride 0.9% 10 Ml Flush Syringe IV PRN PRN LINE FLUSH Zinc Sulfate 220 mg 06/17/20 22:00 06/26/20 21:58 Zinc Sulfate 220 Mg Cap PO 220 mg BID CONNOR Administration
[2020-06-27] MEDS: ASCORBIC ACID 250 MG TAB PO SCH ×2 (09:52→21:28)
[2020-06-27] MEDS: CHOLECALCIFEROL (VIT D3) 1000 UNIT (25 mcg) TAB PO SCH (09:52)
[2020-06-27] MEDS: ZINC SULFATE 220 MG CAP PO SCH ×2 (09:52→21:28)
[2020-06-27] MEDS: CEFEPIME/NS 2 GM/100 ML 2 GM/100 ML BAG IV SCH (09:52)
[2020-06-27] MEDS: dexAMETHasone 4 MG/ML VIAL IV SCH ×2 (09:52→21:27)
[2020-06-27] MEDS: FAMOTIDINE 20 MG/2 ML INJ IV SCH (09:52)
[2020-06-27] MEDS: DOCUSATE SODIUM 100 MG/10 ML ORAL LIQD FEEDTUBE SCH ×2 (09:53→21:27)
[2020-06-27] MEDS: POLYETHYLENE GLYCOL 3350 17 GM POWDER PO SCH (09:53)
[2020-06-27 10:45] LABS: Calcium 7.6 mg/dL (8.4-10.2)
[2020-06-27] MEDS ORDERED: SODIUM BICARB 8.4% 50 MEQ/50 ML SYRINGE IV ONE (12:00)
[2020-06-27] MEDS ORDERED: CALCIUM GLUCONATE 2,000 MG in SODIUM CHLORIDE 0.9% 100 ML IV ONE ×3 (12:00→22:24)
--- NOTE | 2020-06-27 13:02 | Progress Note ---
Assessment and Plan Acute hypoxemic respiratory failure due to COVID-19 Severe COVID infection Severe Sepsis with shock Bilateral pneumonia Acute kidney injury (GIRISH) with acute tubular necrosis (ATN) Elevated liver enzymes Obesity - reduced FiO2 to 55% & RT notified - repeat CXR reviewed and stable; tubes & lines in good position - lactate elevated slightly, follow procalcitonin - received hyperkalemia cocktail and RN to notify nephrology re: ? HD/UF - complete antibiotics per ID (Cefepime) - continue daily SAT's & SBT's as tolerated - continue care as below otherwise; - continue tube feeds and advance to goal rate as tolerated - continue HD/UF per nephrology team for toxin and volume clearance - continue bowel regimen - rate control per cardiology team for afib RVR - Continue to wean supplemental oxygen for O2 sats >92% - Monitor blood pressure closely while optimizing sedation,wean vasopressor support for MAP > 65 mmHg - Critical care prone positioning - Agitation management, keep RASS -1 to -12 now off proning - VAP bundle addressed, aspiration precautions HOB >40 - continue lung protective strategies, permissive hypercapnic acceptable. - continue bronchodilators with pulmonary hygiene per RT - wean per pulmonary driven protocols otherwise - accuchecks with glycemic control per SSI (While critically ill target blood g lucose of 140-180 mg/dL; avoid hypoglycemia) - sedation prn for target RASS -1 to -2 - continue enteral nutritional support at goal rate as tolerated - Monitor liver function test ,avoid hepatotoxic agents - azotemia per nephrology rec's - Avoid nephrotoxins, renally dose all medications, conservative fluid management - continue to avoid benzodiazepines, reduce the possibility of delirium, - prn analgesia per CPOT score - Maintenance of sleep-wake cycle, avoid delirium - Stress ulcer prophylaxis, Famotidine - PT/OT/ROM exercises - Mobility protocols for pressure ulcer prevention - CXR, ABG in am - CBC, CMP in am - Supportive transfusions to keep HgB >7g/dL - Monitor hemodynamics closely - continue other care per attending / other consultants COVID SPECIFIC INTERVENTIONS - continue steroids: Dexamethasone - continue with Remdesivir - monitor inflammatory markers - ferritin, D-dimer, CRP, LDH every 3 days per facility protocol - continue anticoagulation per System Protocol based on d-dimer - continue contact and airborne isolation CONDITION: CRITICAL PROGNOSIS: GUARDED CODE STATUS: FULL CODE The high probability of a clinically significant, sudden or life-threatening deterioration of the [respiratory, cardiovascular, hematologic & neurologic] sy stem(s) required my full and direct attention, intervention and personal management. The aggregate critical care time was [36] minutes without overlap. Time includes spent on; [x] Data Review and interpretation [x] Patient assessment and monitoring of vital signs [x] Documentation [x] Medication orders and management He was evaluated in the context of the global COVID-19 pandemic, which ne cessitated consideration that the patient might be at risk for infection with the virus that causes COVID-19. Institutional protocols and algorithms that pertain to the evaluation of patients at risk for COVID-19 are in a state of rapid change based on information released by regulatory bodies including the CDC and federal and state organizations. These policies and algorithms were followed during the patient's care in the ICU Please note that these policies, procedures and recommendations changed on a rapid basis. Subjective Date of service: 06/27/20 Principal diagnosis: ARF/Septic Shock/COVID-19 PNA, AF with RVR Interval history: Patient is seen today for: Ac hypoxemic respiratory failure; COVID-19; Severe Sepsis with shock; Zackery. pneumonia; GIRISH; Elevated liver enzymes; Obesity Seen and examined at bedside; 24hour events reviewed; nursing and respiratory care staff consulted; no adverse overnight events reported to me; resting in bed; remains on MVS; hyperkalemic today withg potassium of 7.0; no emesis or overt aspiration; still making some clear looking urine; FiO2 remains at 60% but some room to wean Objective Vital Signs - 12hr 06/27/20 06/27/20 06/27/20 01:10 01:20 01:30 Temperature Pulse Rate 112 H 116 H 120 H Respiratory 28 H 29 H 25 H Rate Blood Pressure 139/60 129/64 121/56 O2 Sat by Pulse 95 96 96 Oximetry O2 Sat by Pulse Oximetry [ Anterior Bilateral Throughout] 06/27/20 06/27/20 06/27/20 01:40 01:50 02:00 Temperature Pulse Rate 113 H 116 H 120 H Respiratory 28 H 32 H 28 H Rate Blood Pressure 121/56 115/49 111/43 O2 Sat by Pulse 95 96 95 Oximetry O2 Sat by Pulse Oximetry [ Anterior Bilateral Throughout] 06/27/20 06/27/20 06/27/20 02:10 02:20 02:30 Temperature Pulse Rate 102 H 105 H 104 H Respiratory 27 H 28 H 30 H Rate Blood Pressure 111/43 107/49 112/46 O2 Sat by Pulse 96 96 95 Oximetry O2 Sat by Pulse Oximetry [ Anterior Bilateral Throughout] 06/27/20 06/27/20 06/27/20 02:40 02:50 03:00 Temperature Pulse Rate 107 H 111 H 109 H Respiratory 24 30 H 20 Rate Blood Pressure 112/46 107/44 91/51 O2 Sat by Pulse 96 96 95 Oximetry O2 Sat by Pulse Oximetry [ Anterior Bilateral Throughout] 06/27/20 06/27/20 06/27/20 03:10 03:20 03:30 Temperature Pulse Rate 109 H 112 H 107 H Respiratory 31 H 23 22 Rate Blood Pressure 91/51 91/52 97/52 O2 Sat by Pulse 96 96 96 Oximetry O2 Sat by Pulse Oximetry [ Anterior Bilateral Throughout] 06/27/20 06/27/20 06/27/20 03:34 03:40 03:50 Temperature 98.1 F Pulse Rate 111 H 107 H Respiratory 30 H 27 H Rate Blood Pressure 97/52 110/52 O2 Sat by Pulse 96 96 Oximetry O2 Sat by Pulse Oximetry [ Anterior Bilateral Throughout] 06/27/20 06/27/20 06/27/20 04:00 04:10 04:15 Temperature Pulse Rate 99 H 118 H 115 H Respiratory 30 H 22 Rate Blood Pressure 116/42 116/42 125/72 O2 Sat by Pulse 96 96 96 Oximetry O2 Sat by Pulse Oximetry [ Anterior Bilateral Throughout] 06/27/20 06/27/20 06/27/20 04:20 04:30 04:40 Temperature Pulse Rate 130 H 130 H 126 H Respiratory 17 27 H 24 Rate Blood Pressure 125/72 125/72 169/81 O2 Sat by Pulse 96 98 96 Oximetry O2 Sat by Pulse Oximetry [ Anterior Bilateral Throughout] 06/27/20 06/27/20 06/27/20 04:50 05:00 05:10 Temperature Pulse Rate 115 H 125 H 117 H Respiratory 21 17 20 Rate Blood Pressure 181/82 181/82 145/73 O2 Sat by Pulse 98 94 95 Oximetry O2 Sat by Pulse Oximetry [ Anterior Bilateral Throughout] 06/27/20 06/27/20 06/27/20 05:20 05:30 05:40 Temperature Pulse Rate 119 H 109 H 127 H Respiratory 23 22 26 H Rate Blood Pressure 143/66 141/69 141/69 O2 Sat by Pulse 95 95 96 Oximetry O2 Sat by Pulse Oximetry [ Anterior Bilateral Throughout] 06/27/20 06/27/20 06/27/20 05:50 06:00 06:10 Temperature Pulse Rate 114 H 124 H 107 H Respiratory 30 H 18 25 H Rate Blood Pressure 142/64 127/68 127/68 O2 Sat by Pulse 96 96 96 Oximetry O2 Sat by Pulse Oximetry [ Anterior Bilateral Throughout] 06/27/20 06/27/20 06/27/20 06:20 06:30 06:40 Temperature Pulse Rate 112 H 118 H 118 H Respiratory 24 30 H 31 H Rate Blood Pressure 125/62 125/60 125/60 O2 Sat by Pulse 96 96 95 Oximetry O2 Sat by Pulse Oximetry [ Anterior Bilateral Throughout] 06/27/20 06/27/20 06/27/20 06:50 07:00 07:10 Temperature Pulse Rate 112 H 110 H 125 H Respiratory 29 H 30 H 30 H Rate Blood Pressure 113/56 108/53 108/53 O2 Sat by Pulse 96 95 95 Oximetry O2 Sat by Pulse Oximetry [ Anterior Bilateral Throughout] 06/27/20 06/27/20 06/27/20 07:20 07:30 07:40 Temperature Pulse Rate 119 H 106 H 113 H Respiratory 30 H 28 H 30 H Rate Blood Pressure 108/53 98/51 98/51 O2 Sat by Pulse 96 96 96 Oximetry O2 Sat by Pulse Oximetry [ Anterior Bilateral Throughout] 06/27/20 06/27/20 06/27/20 07:50 08:00 08:10 Temperature 98.7 F Pulse Rate 108 H 107 H 101 H Respiratory 30 H 27 H 30 H Rate Blood Pressure 98/51 93/55 93/55 O2 Sat by Pulse 96 96 96 Oximetry O2 Sat by Pulse Oximetry [ Anterior Bilateral Throughout] 06/27/20 06/27/20 06/27/20 08:20 08:24 08:30 Temperature Pulse Rate 96 H 101 H 102 H Respiratory 30 H 30 H Rate Blood Pressure 98/53 98/53 98/53 O2 Sat by Pulse 96 96 97 Oximetry O2 Sat by Pulse Oximetry [ Anterior Bilateral Throughout] 06/27/20 06/27/20 06/27/20 08:40 08:50 09:00 Temperature Pulse Rate 124 H 116 H 99 H Respiratory 22 26 H 28 H Rate Blood Pressure 149/74 150/70 134/79 O2 Sat by Pulse 97 97 97 Oximetry O2 Sat by Pulse Oximetry [ Anterior Bilateral Throughout] 06/27/20 06/27/20 06/27/20 09:10 09:20 09:30 Temperature Pulse Rate 114 H 113 H 107 H Respiratory 25 H 20 19 Rate Blood Pressure 134/79 156/72 144/73 O2 Sat by Pulse 96 96 96 Oximetry O2 Sat by Pulse Oximetry [ Anterior Bilateral Throughout] 06/27/20 06/27/20 06/27/20 09:40 09:50 10:00 Temperature Pulse Rate 108 H 112 H 127 H Respiratory 28 H 23 26 H Rate Blood Pressure 98/51 133/74 133/74 O2 Sat by Pulse 96 96 96 Oximetry O2 Sat by Pulse Oximetry [ Anterior Bilateral Throughout] 06/27/20 06/27/20 06/27/20 10:10 10:20 10:30 Temperature 98.5 F Pulse Rate 113 H 123 H 131 H Respiratory 17 21 17 Rate Blood Pressure 122/74 110/77 116/68 O2 Sat by Pulse 97 94 94 Oximetry O2 Sat by Pulse 93 Oximetry [ Anterior Bilateral Throughout] 06/27/20 06/27/20 06/27/20 10:40 10:45 10:50 Temperature Pulse Rate 139 H 89 118 H Respiratory 20 31 H Rate Blood Pressure 116/68 107/62 107/62 O2 Sat by Pulse 94 93 Oximetry O2 Sat by Pulse Oximetry [ Anterior Bilateral Throughout] 06/27/20 06/27/20 06/27/20 11:00 11:10 11:15 Temperature Pulse Rate 117 H 112 H 131 H Respiratory 28 H 26 H Rate Blood Pressure 103/45 103/45 96/51 O2 Sat by Pulse 92 92 Oximetry O2 Sat by Pulse Oximetry [ Anterior Bilateral Throughout] 06/27/20 06/27/20 06/27/20 11:30 11:45 12:00 Temperature 98.6 F Pulse Rate 91 H 87 109 H Respiratory Rate Blood Pressure 96/51 104/44 108/48 O2 Sat by Pulse Oximetry O2 Sat by Pulse Oximetry [ Anterior Bilateral Throughout] 06/27/20 06/27/20 06/27/20 12:15 12:30 12:40 Temperature Pulse Rate 83 100 H 102 H Respiratory Rate Blood Pressure 102/52 93/53 85/55 O2 Sat by Pulse Oximetry O2 Sat by Pulse Oximetry [ Anterior Bilateral Throughout] Constitutional: appears uncomfortable, other (morbidly obese, atraumatic, normocephalic, mild resp distress, orally intuabted) Eyes: non-icteric ENT: oropharynx moist, other (ETT 24 cm TROY) Neck: supple, no lymphadenopathy, other (Large , short neck) Effort: mildly labored Ascultation: Bilateral: diminished breath sounds, rhonchi Percussion: Bilateral: not dull Cardiovascular: irregular rhythm, other (S1,S2) Gastrointestinal: normoactive bowel sounds, non-distended Integumentary: rash, other (Femoral CVC, Newell catheter) Extremities: no edema, pink and warm, pulses normal, no ischemia or petechiae, edema (trace to 1+) Neurologic: non-focal exam (grossly), pupils equal and round, other (unable to assess, sedated) Psychiatric: other (unable to assess, sedated) CBC and BMP: 06/27/20 04:00 06/27/20 10:14 ABG, PT/INR, D-dimer: ABG ABG pH 7.298 (7.320-7.450) L 06/27/20 03:32 POC ABG pCO2 38.1 mmHg (32.0-48.0) 06/27/20 03:32 POC ABG pO2 97.3 mmHg (83-108) 06/27/20 03:32 POC ABG HCO3 18.2 06/27/20 03:32 PT/INR, D-dimer PT 17.4 Sec. (12.2-14.9) H 06/26/20 05:47 INR 1.44 (0.87-1.13) H 06/26/20 05:47 D-Dimer 939.89 ng/mlDDU (0-234) H 06/17/20 14:48 Abnormal lab findings: Abnormal Labs 06/17/20 06/17/20 06/17/20 12:33 12:33 12:33 WBC 19.5 H RBC 5.18 H Hgb 15.5 H Hct RDW Lymph % (Auto) 3.8 L Lymph # (Auto) 0.7 L [place] # (Auto) Seg Neuts % (Manual) 99.0 H Lymphocytes % (Manual) 1.0 L Nucleated RBC % Seg Neutrophils # 18.2 H Seg Neutrophils # Man 19.3 H Lymphocytes # (Manual) 0.2 L Monocytes # (Manual) PT 16.5 H INR 1.33 H APTT D-Dimer 1025.04 H Heparin Anti-Xa Level ABG pH POC ABG pCO2 POC ABG pO2 ABG Hemoglobin ABG Oxyhemoglobin ABG Sodium ABG Potassium ABG Chloride ABG Glucose Carboxyhemoglobin Sodium 130 L Potassium 3.4 L Chloride 95.0 L Carbon Dioxide BUN 21 H Creatinine Glucose 137 H POC Glucose Lactic Acid Calcium 7.9 L Magnesium Ferritin AST 84 H ALT 67 H Lactate Dehydrogenase 437 H Total Creatine Kinase 310 H C-Reactive Protein 27.90 H Total Protein Albumin 2.9 L Triglycerides Arterial Blood Glucose Arterial Blood Ionized Calcium Urine Creatinine Urine Chloride Vancomycin Trough Coronavirus (PCR) 06/17/20 06/17/20 06/17/20 12:33 12:33 14:48 WBC RBC Hgb Hct RDW Lymph % (Auto) Lymph # (Auto) [place] # (Auto) Seg Neuts % (Manual) Lymphocytes % (Manual) Nucleated RBC % Seg Neutrophils # Seg Neutrophils # Man Lymphocytes # (Manual) Monocytes # (Manual) PT INR APTT D-Dimer Heparin Anti-Xa Level ABG pH POC ABG pCO2 POC ABG pO2 ABG Hemoglobin ABG Oxyhemoglobin ABG Sodium ABG Potassium ABG Chloride ABG Glucose Carboxyhemoglobin Sodium Potassium Chloride Carbon Dioxide BUN Creatinine Glucose POC Glucose Lactic Acid 2.50 H* 2.20 H* Calcium Magnesium Ferritin 2297.0 H AST ALT Lactate Dehydrogenase Total Creatine Kinase C-Reactive Protein Total Protein Albumin Triglycerides Arterial Blood Glucose Arterial Blood Ionized Calcium Urine Creatinine Urine Chloride Vancomycin Trough Coronavirus (PCR) 06/17/20 06/17/20 06/17/20 14:48 14:48 14:48 WBC RBC Hgb Hct RDW Lymph % (Auto) Lymph # (Auto) [place] # (Auto) Seg Neuts % (Manual) Lymphocytes % (Manual) Nucleated RBC % Seg Neutrophils # Seg Neutrophils # Man Lymphocytes # (Manual) Monocytes # (Manual) PT INR APTT D-Dimer 939.89 H Heparin Anti-Xa Level ABG pH POC ABG pCO2 POC ABG pO2 ABG Hemoglobin ABG Oxyhemoglobin ABG Sodium ABG Potassium ABG Chloride ABG Glucose Carboxyhemoglobin Sodium Potassium Chloride Carbon Dioxide BUN Creatinine Glucose 141 H POC Glucose Lactic Acid Calcium Magnesium Ferritin > 2000.0 H AST ALT Lactate Dehydrogenase 503 H Total Creatine Kinase C-Reactive Protein 24.70 H Total Protein Albumin Triglycerides Arterial Blood Glucose Arterial Blood Ionized Calcium Urine Creatinine Urine Chloride Vancomycin Trough Coronavirus (PCR) 06/17/20 06/17/20 06/17/20 16:54 19:39 23:43 WBC RBC Hgb Hct RDW Lymph % (Auto) Lymph # (Auto) [place] # (Auto) Seg Neuts % (Manual) Lymphocytes % (Manual) Nucleated RBC % Seg Neutrophils # Seg Neutrophils # Man Lymphocytes # (Manual) Monocytes # (Manual) PT INR APTT D-Dimer Heparin Anti-Xa Level ABG pH 7.571 H POC ABG pCO2 24.3 L POC ABG pO2 41.6 L ABG Hemoglobin ABG Oxyhemoglobin 84.0 L ABG Sodium 131.0 L ABG Potassium ABG Chloride ABG Glucose 163 H Carboxyhemoglobin Sodium Potassium Chloride Carbon Dioxide BUN Creatinine Glucose POC Glucose 185 H Lactic Acid 2.10 H* Calcium Magnesium Ferritin AST ALT Lactate Dehydrogenase Total Creatine Kinase C-Reactive Protein Total Protein Albumin Triglycerides Arterial Blood Glucose 163 H Arterial Blood Ionized Calcium 4.4 L Urine Creatinine Urine Chloride Vancomycin Trough Coronavirus (PCR) 06/18/20 06/18/20 06/18/20 00:17 00:23 03:55 WBC RBC Hgb Hct RDW Lymph % (Auto) Lymph # (Auto) [place] # (Auto) Seg Neuts % (Manual) Lymphocytes % (Manual) Nucleated RBC % Seg Neutrophils # Seg Neutrophils # Man Lymphocytes # (Manual) Monocytes # (Manual) PT INR APTT D-Dimer Heparin Anti-Xa Level ABG pH POC ABG pCO2 POC ABG pO2 56.5 L 48.3 L ABG Hemoglobin ABG Oxyhemoglobin 86.3 L 81.7 L ABG Sodium 132.9 L 131.0 L ABG Potassium ABG Chloride ABG Glucose 189 H 161 H Carboxyhemoglobin 0.4 L Sodium Potassium Chloride Carbon Dioxide BUN Creatinine Glucose POC Glucose Lactic Acid 3.80 H* Calcium Magnesium Ferritin AST ALT Lactate Dehydrogenase Total Creatine Kinase C-Reactive Protein Total Protein Albumin Triglycerides Arterial Blood Glucose 189 H 161 H Arterial Blood Ionized Calcium 4.3 L 4.2 L Urine Creatinine Urine Chloride Vancomycin Trough Coronavirus (PCR) 06/18/20 06/18/20 06/18/20 05:39 05:39 05:39 WBC 26.2 H RBC Hgb Hct RDW Lymph % (Auto) Lymph # (Auto) [place] # (Auto) Seg Neuts % (Manual) 90.0 H Lymphocytes % (Manual) 5.0 L Nucleated RBC % Seg Neutrophils # Seg Neutrophils # Man 23.6 H Lymphocytes # (Manual) Monocytes # (Manual) 1.3 H PT INR APTT D-Dimer Heparin Anti-Xa Level ABG pH POC ABG pCO2 POC ABG pO2 ABG Hemoglobin ABG Oxyhemoglobin ABG Sodium ABG Potassium ABG Chloride ABG Glucose Carboxyhemoglobin Sodium 135 L Potassium Chloride 97.5 L Carbon Dioxide 21 L BUN 39 H Creatinine 1.7 H D Glucose 168 H POC Glucose Lactic Acid 3.40 H* Calcium 7.2 L Magnesium Ferritin AST ALT Lactate Dehydrogenase Total Creatine Kinase C-Reactive Protein Total Protein Albumin Triglycerides Arterial Blood Glucose Arterial Blood Ionized Calcium Urine Creatinine Urine Chloride Vancomycin Trough Coronavirus (PCR) 06/18/20 06/18/20 06/18/20 07:24 09:00 10:10 WBC RBC Hgb Hct RDW Lymph % (Auto) Lymph # (Auto) [place] # (Auto) Seg Neuts % (Manual) Lymphocytes % (Manual) Nucleated RBC % Seg Neutrophils # Seg Neutrophils # Man Lymphocytes # (Manual) Monocytes # (Manual) PT INR APTT D-Dimer Heparin Anti-Xa Level ABG pH POC ABG pCO2 POC ABG pO2 ABG Hemoglobin ABG Oxyhemoglobin ABG Sodium ABG Potassium ABG Chloride ABG Glucose Carboxyhemoglobin Sodium Potassium Chloride Carbon Dioxide BUN Creatinine Glucose POC Glucose Lactic Acid 2.90 H* 3.20 H* Calcium Magnesium Ferritin AST ALT Lactate Dehydrogenase Total Creatine Kinase C-Reactive Protein Total Protein Albumin Triglycerides Arterial Blood Glucose Arterial Blood Ionized Calcium Urine Creatinine Urine Chloride Vancomycin Trough Coronavirus (PCR) Positive A 06/18/20 06/18/20 06/18/20 11:58 14:43 15:00 WBC RBC Hgb Hct RDW Lymph % (Auto) Lymph # (Auto) [place] # (Auto) Seg Neuts % (Manual) Lymphocytes % (Manual) Nucleated RBC % Seg Neutrophils # Seg Neutrophils # Man Lymphocytes # (Manual) Monocytes # (Manual) PT INR APTT D-Dimer Heparin Anti-Xa Level ABG pH 7.303 L POC ABG pCO2 POC ABG pO2 82.3 L ABG Hemoglobin ABG Oxyhemoglobin ABG Sodium 135.3 L ABG Potassium ABG Chloride ABG Glucose 215 H Carboxyhemoglobin 0.3 L Sodium Potassium Chloride Carbon Dioxide BUN Creatinine Glucose POC Glucose 209 H Lactic Acid Calcium Magnesium Ferritin AST ALT Lactate Dehydrogenase Total Creatine Kinase C-Reactive Protein Total Protein Albumin Triglycerides Arterial Blood Glucose 215 H Arterial Blood Ionized Calcium 4.2 L Urine Creatinine 192.4 H Urine Chloride 31.1 L Vancomycin Trough Coronavirus (PCR) 06/18/20 06/18/20 06/18/20 17:16 19:44 20:33 WBC RBC Hgb Hct RDW Lymph % (Auto) Lymph # (Auto) [place] # (Auto) Seg Neuts % (Manual) Lymphocytes % (Manual) Nucleated RBC % Seg Neutrophils # Seg Neutrophils # Man Lymphocytes # (Manual) Monocytes # (Manual) PT INR APTT D-Dimer Heparin Anti-Xa Level ABG pH POC ABG pCO2 POC ABG pO2 ABG Hemoglobin ABG Oxyhemoglobin ABG Sodium ABG Potassium ABG Chloride ABG Glucose Carboxyhemoglobin Sodium Potassium Chloride Carbon Dioxide BUN Creatinine Glucose POC Glucose 182 H Lactic Acid 3.00 H* Calcium Magnesium 2.70 H Ferritin AST ALT Lactate Dehydrogenase Total Creatine Kinase C-Reactive Protein Total Protein Albumin Triglycerides Arterial Blood Glucose Arterial Blood Ionized Calcium Urine Creatinine Urine Chloride Vancomycin Trough Coronavirus (PCR) 06/18/20 06/19/20 06/19/20 23:43 04:00 04:00 WBC 31.6 H RBC Hgb Hct RDW Lymph % (Auto) Lymph # (Auto) [place] # (Auto) Seg Neuts % (Manual) 98.0 H Lymphocytes % (Manual) 0.5 L Nucleated RBC % Seg Neutrophils # Seg Neutrophils # Man 31.0 H Lymphocytes # (Manual) 0.2 L Monocytes # (Manual) PT INR APTT D-Dimer Heparin Anti-Xa Level ABG pH POC ABG pCO2 POC ABG pO2 ABG Hemoglobin ABG Oxyhemoglobin ABG Sodium ABG Potassium ABG Chloride ABG Glucose Carboxyhemoglobin Sodium Potassium Chloride Carbon Dioxide BUN 56 H Creatinine 1.6 H Glucose 176 H POC Glucose 149 H Lactic Acid Calcium 7.0 L Magnesium Ferritin AST 244 H ALT 159 H Lactate Dehydrogenase Total Creatine Kinase C-Reactive Protein Total Protein 4.9 L D Albumin 2.5 L Triglycerides Arterial Blood Glucose Arterial Blood Ionized Calcium Urine Creatinine Urine Chloride Vancomycin Trough Coronavirus (PCR) 06/19/20 06/19/20 06/19/20 04:00 05:44 11:42 WBC RBC Hgb Hct RDW Lymph % (Auto) Lymph # (Auto) [place] # (Auto) Seg Neuts % (Manual) Lymphocytes % (Manual) Nucleated RBC % Seg Neutrophils # Seg Neutrophils # Man Lymphocytes # (Manual) Monocytes # (Manual) PT INR APTT D-Dimer Heparin Anti-Xa Level ABG pH 7.265 L POC ABG pCO2 51.8 H POC ABG pO2 65.1 L ABG Hemoglobin ABG Oxyhemoglobin ABG Sodium ABG Potassium ABG Chloride ABG Glucose 184 H Carboxyhemoglobin Sodium Potassium Chloride Carbon Dioxide BUN Creatinine Glucose POC Glucose 156 H 191 H Lactic Acid Calcium Magnesium Ferritin AST ALT Lactate Dehydrogenase Total Creatine Kinase C-Reactive Protein Total Protein Albumin Triglycerides Arterial Blood Glucose 184 H Arterial Blood Ionized Calcium 4.3 L Urine Creatinine Urine Chloride Vancomycin Trough Coronavirus (PCR) 06/19/20 06/19/20 06/19/20 12:30 17:16 18:36 WBC RBC Hgb Hct RDW Lymph % (Auto) Lymph # (Auto) [place] # (Auto) Seg Neuts % (Manual) Lymphocytes % (Manual) Nucleated RBC % Seg Neutrophils # Seg Neutrophils # Man Lymphocytes # (Manual) Monocytes # (Manual) PT 16.4 H INR 1.32 H APTT D-Dimer Heparin Anti-Xa Level ABG pH 7.088 L POC ABG pCO2 78.1 H POC ABG pO2 208.3 H ABG Hemoglobin ABG Oxyhemoglobin 98.3 H ABG Sodium ABG Potassium 5.0 H ABG Chloride ABG Glucose 182 H Carboxyhemoglobin 0.4 L Sodium Potassium Chloride Carbon Dioxide BUN Creatinine Glucose POC Glucose 154 H Lactic Acid Calcium Magnesium Ferritin AST ALT Lactate Dehydrogenase Total Creatine Kinase C-Reactive Protein Total Protein Albumin Triglycerides Arterial Blood Glucose 182 H Arterial Blood Ionized Calcium 4.3 L Urine Creatinine Urine Chloride Vancomycin Trough Coronavirus (PCR) 06/19/20 06/20/20 06/20/20 23:32 03:00 05:19 WBC RBC Hgb Hct RDW Lymph % (Auto) Lymph # (Auto) [place] # (Auto) Seg Neuts % (Manual) Lymphocytes % (Manual) Nucleated RBC % Seg Neutrophils # Seg Neutrophils # Man Lymphocytes # (Manual) Monocytes # (Manual) PT INR APTT D-Dimer Heparin Anti-Xa Level 0.77 H ABG pH POC ABG pCO2 POC ABG pO2 ABG Hemoglobin ABG Oxyhemoglobin ABG Sodium ABG Potassium ABG Chloride ABG Glucose Carboxyhemoglobin Sodium Potassium Chloride Carbon Dioxide BUN Creatinine Glucose POC Glucose 201 H 190 H Lactic Acid Calcium Magnesium Ferritin AST ALT Lactate Dehydrogenase Total Creatine Kinase C-Reactive Protein Total Protein Albumin Triglycerides Arterial Blood Glucose Arterial Blood Ionized Calcium Urine Creatinine Urine Chloride Vancomycin Trough Coronavirus (PCR) 06/20/20 06/20/20 06/20/20 08:25 08:25 11:36 WBC RBC Hgb Hct RDW Lymph % (Auto) Lymph # (Auto) [place] # (Auto) Seg Neuts % (Manual) Lymphocytes % (Manual) Nucleated RBC % Seg Neutrophils # Seg Neutrophils # Man Lymphocytes # (Manual) Monocytes # (Manual) PT INR APTT D-Dimer Heparin Anti-Xa Level ABG pH POC ABG pCO2 POC ABG pO2 ABG Hemoglobin ABG Oxyhemoglobin ABG Sodium ABG Potassium ABG Chloride ABG Glucose Carboxyhemoglobin Sodium 135 L Potassium 5.4 H Chloride 109.2 H Carbon Dioxide 19 L BUN 68 H Creatinine 2.5 H D Glucose 201 H POC Glucose 184 H Lactic Acid Calcium 5.5 L* D Magnesium Ferritin AST 123 H ALT 86 H Lactate Dehydrogenase Total Creatine Kinase C-Reactive Protein Total Protein 4.6 L Albumin 1.5 L Triglycerides Arterial Blood Glucose Arterial Blood Ionized Calcium Urine Creatinine Urine Chloride Vancomycin Trough 22.7 H Coronavirus (PCR) 06/20/20 06/20/20 06/20/20 11:40 17:28 20:00 WBC RBC Hgb Hct RDW Lymph % (Auto) Lymph # (Auto) [place] # (Auto) Seg Neuts % (Manual) Lymphocytes % (Manual) Nucleated RBC % Seg Neutrophils # Seg Neutrophils # Man Lymphocytes # (Manual) Monocytes # (Manual) PT INR APTT D-Dimer Heparin Anti-Xa Level 0.89 H ABG pH 7.099 L POC ABG pCO2 61.1 H POC ABG pO2 ABG Hemoglobin ABG Oxyhemoglobin ABG Sodium ABG Potassium 5.0 H ABG Chloride 111.0 H ABG Glucose 200 H Carboxyhemoglobin 0.4 L Sodium Potassium Chloride Carbon Dioxide BUN Creatinine Glucose POC Glucose 165 H Lactic Acid Calcium Magnesium Ferritin AST ALT Lactate Dehydrogenase Total Creatine Kinase C-Reactive Protein Total Protein Albumin Triglycerides Arterial Blood Glucose 200 H Arterial Blood Ionized Calcium 4.2 L Urine Creatinine Urine Chloride Vancomycin Trough Coronavirus (PCR) 06/20/20 06/21/20 06/21/20 23:29 05:00 05:20 WBC RBC Hgb Hct RDW Lymph % (Auto) Lymph # (Auto) [place] # (Auto) Seg Neuts % (Manual) Lymphocytes % (Manual) Nucleated RBC % Seg Neutrophils # Seg Neutrophils # Man Lymphocytes # (Manual) Monocytes # (Manual) PT INR APTT D-Dimer Heparin Anti-Xa Level ABG pH POC ABG pCO2 POC ABG pO2 ABG Hemoglobin ABG Oxyhemoglobin ABG Sodium ABG Potassium ABG Chloride ABG Glucose Carboxyhemoglobin Sodium Potassium Chloride 112.0 H Carbon Dioxide 20 L BUN 92 H Creatinine 3.9 H D Glucose 214 H POC Glucose 145 H 191 H Lactic Acid Calcium 6.5 L D Magnesium Ferritin AST 98 H ALT 84 H Lactate Dehydrogenase Total Creatine Kinase C-Reactive Protein Total Protein 4.6 L Albumin 2.1 L Triglycerides 180 H Arterial Blood Glucose Arterial Blood Ionized Calcium Urine Creatinine Urine Chloride Vancomycin Trough Coronavirus (PCR) 06/21/20 06/21/20 06/21/20 08:56 11:12 12:43 WBC RBC Hgb Hct RDW Lymph % (Auto) Lymph # (Auto) [place] # (Auto) Seg Neuts % (Manual) Lymphocytes % (Manual) Nucleated RBC % Seg Neutrophils # Seg Neutrophils # Man Lymphocytes # (Manual) Monocytes # (Manual) PT INR APTT D-Dimer Heparin Anti-Xa Level 0.28 L ABG pH 7.184 L POC ABG pCO2 48.3 H POC ABG pO2 172.1 H ABG Hemoglobin ABG Oxyhemoglobin 98.7 H ABG Sodium ABG Potassium 4.9 H ABG Chloride 112.0 H ABG Glucose 196 H Carboxyhemoglobin 0.2 L Sodium Potassium Chloride Carbon Dioxide BUN Creatinine Glucose POC Glucose 177 H Lactic Acid Calcium Magnesium Ferritin AST ALT Lactate Dehydrogenase Total Creatine Kinase C-Reactive Protein Total Protein Albumin Triglycerides Arterial Blood Glucose 196 H Arterial Blood Ionized Calcium 4.1 L Urine Creatinine Urine Chloride Vancomycin Trough Coronavirus (PCR) 06/21/20 06/21/20 06/22/20 16:31 Unknown 00:12 WBC RBC Hgb Hct RDW Lymph % (Auto) Lymph # (Auto) [place] # (Auto) Seg Neuts % (Manual) Lymphocytes % (Manual) Nucleated RBC % Seg Neutrophils # Seg Neutrophils # Man Lymphocytes # (Manual) Monocytes # (Manual) PT INR APTT D-Dimer Heparin Anti-Xa Level 0.78 H ABG pH POC ABG pCO2 POC ABG pO2 ABG Hemoglobin ABG Oxyhemoglobin ABG Sodium ABG Potassium ABG Chloride ABG Glucose Carboxyhemoglobin Sodium Potassium Chloride Carbon Dioxide BUN Creatinine Glucose POC Glucose 150 H 173 H Lactic Acid Calcium Magnesium Ferritin AST ALT Lactate Dehydrogenase Total Creatine Kinase C-Reactive Protein Total Protein Albumin Triglycerides Arterial Blood Glucose Arterial Blood Ionized Calcium Urine Creatinine Urine Chloride Vancomycin Trough Coronavirus (PCR) 06/22/20 06/22/20 06/22/20 04:00 05:04 05:30 WBC 33.9 H RBC Hgb 11.7 L Hct 35.2 L RDW 15.8 H Lymph % (Auto) Lymph # (Auto) [place] # (Auto) Seg Neuts % (Manual) 93.0 H Lymphocytes % (Manual) 5.0 L Nucleated RBC % Seg Neutrophils # Seg Neutrophils # Man 31.5 H Lymphocytes # (Manual) Monocytes # (Manual) PT INR APTT D-Dimer Heparin Anti-Xa Level ABG pH 7.169 L POC ABG pCO2 POC ABG pO2 ABG Hemoglobin ABG Oxyhemoglobin ABG Sodium ABG Potassium 5.1 H ABG Chloride 112.0 H ABG Glucose 186 H Carboxyhemoglobin 0.3 L Sodium Potassium Chloride Carbon Dioxide BUN Creatinine Glucose POC Glucose 161 H Lactic Acid Calcium Magnesium Ferritin AST ALT Lactate Dehydrogenase Total Creatine Kinase C-Reactive Protein Total Protein Albumin Triglycerides Arterial Blood Glucose 186 H Arterial Blood Ionized Calcium 4.1 L Urine Creatinine Urine Chloride Vancomycin Trough Coronavirus (PCR) 06/22/20 06/22/20 06/22/20 05:30 11:39 13:27 WBC RBC Hgb Hct RDW Lymph % (Auto) Lymph # (Auto) [place] # (Auto) Seg Neuts % (Manual) Lymphocytes % (Manual) Nucleated RBC % Seg Neutrophils # Seg Neutrophils # Man Lymphocytes # (Manual) Monocytes # (Manual) PT INR APTT D-Dimer Heparin Anti-Xa Level ABG pH POC ABG pCO2 POC ABG pO2 ABG Hemoglobin ABG Oxyhemoglobin ABG Sodium ABG Potassium ABG Chloride ABG Glucose Carboxyhemoglobin Sodium Potassium 5.7 H Chloride 111.3 H Carbon Dioxide 18 L BUN 112 H Creatinine 5.0 H Glucose 173 H POC Glucose 172 H 176 H Lactic Acid Calcium 6.7 L Magnesium Ferritin AST ALT Lactate Dehydrogenase Total Creatine Kinase C-Reactive Protein Total Protein Albumin Triglycerides Arterial Blood Glucose Arterial Blood Ionized Calcium Urine Creatinine Urine Chloride Vancomycin Trough Coronavirus (PCR) 06/22/20 06/22/20 06/22/20 14:37 17:00 17:40 WBC RBC Hgb Hct RDW Lymph % (Auto) Lymph # (Auto) [place] # (Auto) Seg Neuts % (Manual) Lymphocytes % (Manual) Nucleated RBC % Seg Neutrophils # Seg Neutrophils # Man Lymphocytes # (Manual) Monocytes # (Manual) PT INR APTT D-Dimer Heparin Anti-Xa Level 1.32 H ABG pH POC ABG pCO2 POC ABG pO2 ABG Hemoglobin ABG Oxyhemoglobin ABG Sodium ABG Potassium ABG Chloride ABG Glucose Carboxyhemoglobin Sodium Potassium Chloride Carbon Dioxide BUN Creatinine Glucose POC Glucose 171 H Lactic Acid Calcium Magnesium Ferritin AST ALT Lactate Dehydrogenase Total Creatine Kinase C-Reactive Protein 5.30 H Total Protein Albumin Triglycerides Arterial Blood Glucose Arterial Blood Ionized Calcium Urine Creatinine Urine Chloride Vancomycin Trough Coronavirus (PCR) 06/22/20 06/23/20 06/23/20 23:36 02:13 02:41 WBC RBC Hgb Hct RDW Lymph % (Auto) Lymph # (Auto) [place] # (Auto) Seg Neuts % (Manual) Lymphocytes % (Manual) Nucleated RBC % Seg Neutrophils # Seg Neutrophils # Man Lymphocytes # (Manual) Monocytes # (Manual) PT INR APTT D-Dimer Heparin Anti-Xa Level 0.21 L ABG pH 7.318 L POC ABG pCO2 POC ABG pO2 157.5 H ABG Hemoglobin ABG Oxyhemoglobin ABG Sodium 135.6 L ABG Potassium 4.6 H ABG Chloride 110.0 H ABG Glucose 169 H Carboxyhemoglobin Sodium Potassium Chloride Carbon Dioxide BUN Creatinine Glucose POC Glucose 155 H Lactic Acid Calcium Magnesium Ferritin AST ALT Lactate Dehydrogenase Total Creatine Kinase C-Reactive Protein Total Protein Albumin Triglycerides Arterial Blood Glucose 169 H Arterial Blood Ionized Calcium Urine Creatinine Urine Chloride Vancomycin Trough Coronavirus (PCR) 06/23/20 06/23/20 06/23/20 04:00 04:00 05:24 WBC 27.4 H RBC Hgb 11.3 L Hct 33.8 L RDW Lymph % (Auto) Lymph # (Auto) [place] # (Auto) Seg Neuts % (Manual) 93.0 H Lymphocytes % (Manual) 1.0 L Nucleated RBC % 1.0 H Seg Neutrophils # Seg Neutrophils # Man 25.5 H Lymphocytes # (Manual) 0.3 L Monocytes # (Manual) 1.1 H PT INR APTT D-Dimer Heparin Anti-Xa Level ABG pH POC ABG pCO2 POC ABG pO2 ABG Hemoglobin ABG Oxyhemoglobin ABG Sodium ABG Potassium ABG Chloride ABG Glucose Carboxyhemoglobin Sodium Potassium Chloride 107.6 H Carbon Dioxide 20 L BUN 100 H Creatinine 4.7 H Glucose 168 H POC Glucose 151 H Lactic Acid Calcium Magnesium Ferritin AST ALT Lactate Dehydrogenase Total Creatine Kinase C-Reactive Protein Total Protein Albumin Triglycerides Arterial Blood Glucose Arterial Blood Ionized Calcium Urine Creatinine Urine Chloride Vancomycin Trough Coronavirus (PCR) 06/23/20 06/23/20 06/23/20 11:30 17:18 23:50 WBC RBC Hgb Hct RDW Lymph % (Auto) Lymph # (Auto) [place] # (Auto) Seg Neuts % (Manual) Lymphocytes % (Manual) Nucleated RBC % Seg Neutrophils # Seg Neutrophils # Man Lymphocytes # (Manual) Monocytes # (Manual) PT INR APTT D-Dimer Heparin Anti-Xa Level ABG pH POC ABG pCO2 POC ABG pO2 ABG Hemoglobin ABG Oxyhemoglobin ABG Sodium ABG Potassium ABG Chloride ABG Glucose Carboxyhemoglobin Sodium Potassium Chloride Carbon Dioxide BUN Creatinine Glucose POC Glucose 157 H 156 H 162 H Lactic Acid Calcium Magnesium Ferritin AST ALT Lactate Dehydrogenase Total Creatine Kinase C-Reactive Protein Total Protein Albumin Triglycerides Arterial Blood Glucose Arterial Blood Ionized Calcium Urine Creatinine Urine Chloride Vancomycin Trough Coronavirus (PCR) 06/24/20 06/24/20 06/24/20 04:41 05:57 06:30 WBC 34.3 H RBC Hgb 10.9 L Hct 32.6 L RDW Lymph % (Auto) 2.0 L Lymph # (Auto) 0.7 L [place] # (Auto) 1.2 H Seg Neuts % (Manual) 96.0 H Lymphocytes % (Manual) 3.0 L Nucleated RBC % Seg Neutrophils # 32.3 H Seg Neutrophils # Man 32.9 H Lymphocytes # (Manual) 1.0 L Monocytes # (Manual) PT INR APTT D-Dimer Heparin Anti-Xa Level ABG pH POC ABG pCO2 POC ABG pO2 71.1 L ABG Hemoglobin ABG Oxyhemoglobin 92.4 L ABG Sodium 115.6 L ABG Potassium ABG Chloride ABG Glucose 159 H Carboxyhemoglobin Sodium Potassium Chloride Carbon Dioxide BUN Creatinine Glucose POC Glucose 143 H Lactic Acid Calcium Magnesium Ferritin AST ALT Lactate Dehydrogenase Total Creatine Kinase C-Reactive Protein Total Protein Albumin Triglycerides Arterial Blood Glucose 159 H Arterial Blood Ionized Calcium 4.2 L Urine Creatinine Urine Chloride Vancomycin Trough Coronavirus (PCR) 06/24/20 06/24/20 06/24/20 07:03 09:37 11:56 WBC RBC Hgb Hct RDW Lymph % (Auto) Lymph # (Auto) [place] # (Auto) Seg Neuts % (Manual) Lymphocytes % (Manual) Nucleated RBC % Seg Neutrophils # Seg Neutrophils # Man Lymphocytes # (Manual) Monocytes # (Manual) PT INR APTT D-Dimer Heparin Anti-Xa Level 0.26 L ABG pH POC ABG pCO2 POC ABG pO2 ABG Hemoglobin ABG Oxyhemoglobin ABG Sodium ABG Potassium ABG Chloride ABG Glucose Carboxyhemoglobin Sodium Potassium 5.1 H Chloride Carbon Dioxide BUN 103 H Creatinine 5.0 H Glucose 163 H POC Glucose 149 H Lactic Acid Calcium 7.6 L Magnesium Ferritin AST ALT Lactate Dehydrogenase Total Creatine Kinase C-Reactive Protein Total Protein Albumin Triglycerides Arterial Blood Glucose Arterial Blood Ionized Calcium Urine Creatinine Urine Chloride Vancomycin Trough Coronavirus (PCR) 06/24/20 06/25/20 06/25/20 18:09 01:05 03:00 WBC RBC Hgb 10.6 L Hct 32.1 L RDW Lymph % (Auto) Lymph # (Auto) [place] # (Auto) Seg Neuts % (Manual) Lymphocytes % (Manual) Nucleated RBC % Seg Neutrophils # Seg Neutrophils # Man Lymphocytes # (Manual) Monocytes # (Manual) PT INR APTT D-Dimer Heparin Anti-Xa Level ABG pH POC ABG pCO2 POC ABG pO2 ABG Hemoglobin ABG Oxyhemoglobin ABG Sodium ABG Potassium ABG Chloride ABG Glucose Carboxyhemoglobin Sodium Potassium Chloride Carbon Dioxide BUN Creatinine Glucose POC Glucose 141 H 137 H Lactic Acid Calcium Magnesium Ferritin AST ALT Lactate Dehydrogenase Total Creatine Kinase C-Reactive Protein Total Protein Albumin Triglycerides Arterial Blood Glucose Arterial Blood Ionized Calcium Urine Creatinine Urine Chloride Vancomycin Trough Coronavirus (PCR) 06/25/20 06/25/20 06/25/20 03:48 05:17 12:08 WBC RBC Hgb Hct RDW Lymph % (Auto) Lymph # (Auto) [place] # (Auto) Seg Neuts % (Manual) Lymphocytes % (Manual) Nucleated RBC % Seg Neutrophils # Seg Neutrophils # Man Lymphocytes # (Manual) Monocytes # (Manual) PT INR APTT D-Dimer Heparin Anti-Xa Level ABG pH POC ABG pCO2 29.4 L POC ABG pO2 67.1 L ABG Hemoglobin 11.5 L ABG Oxyhemoglobin ABG Sodium 124.1 L ABG Potassium 4.6 H ABG Chloride ABG Glucose 159 H Carboxyhemoglobin Sodium Potassium Chloride Carbon Dioxide BUN Creatinine Glucose POC Glucose 149 H 150 H Lactic Acid Calcium Magnesium Ferritin AST ALT Lactate Dehydrogenase Total Creatine Kinase C-Reactive Protein Total Protein Albumin Triglycerides Arterial Blood Glucose 159 H Arterial Blood Ionized Calcium 4.2 L Urine Creatinine Urine Chloride Vancomycin Trough Coronavirus (PCR) 06/25/20 06/25/20 06/25/20 16:27 16:35 17:27 WBC RBC Hgb Hct RDW Lymph % (Auto) Lymph # (Auto) [place] # (Auto) Seg Neuts % (Manual) Lymphocytes % (Manual) Nucleated RBC % Seg Neutrophils # Seg Neutrophils # Man Lymphocytes # (Manual) Monocytes # (Manual) PT INR APTT D-Dimer Heparin Anti-Xa Level < 0.10 L ABG pH POC ABG pCO2 POC ABG pO2 ABG Hemoglobin ABG Oxyhemoglobin ABG Sodium ABG Potassium ABG Chloride ABG Glucose Carboxyhemoglobin Sodium Potassium Chloride Carbon Dioxide BUN Creatinine Glucose POC Glucose 143 H 156 H Lactic Acid Calcium Magnesium Ferritin AST ALT Lactate Dehydrogenase Total Creatine Kinase C-Reactive Protein Total Protein Albumin Triglycerides Arterial Blood Glucose Arterial Blood Ionized Calcium Urine Creatinine Urine Chloride Vancomycin Trough Coronavirus (PCR) 06/25/20 06/25/20 06/25/20 20:00 20:55 23:10 WBC 32.7 H RBC 3.06 L Hgb 9.0 L 9.5 L Hct 26.7 L 28.6 L RDW Lymph % (Auto) Lymph # (Auto) [place] # (Auto) Seg Neuts % (Manual) Lymphocytes % (Manual) 2.0 L Nucleated RBC % Seg Neutrophils # Seg Neutrophils # Man 30.7 H Lymphocytes # (Manual) 0.7 L Monocytes # (Manual) 1.3 H PT 17.7 H INR 1.47 H APTT 65.8 H* D-Dimer Heparin Anti-Xa Level ABG pH POC ABG pCO2 POC ABG pO2 ABG Hemoglobin ABG Oxyhemoglobin ABG Sodium ABG Potassium ABG Chloride ABG Glucose Carboxyhemoglobin Sodium Potassium Chloride Carbon Dioxide BUN Creatinine Glucose POC Glucose Lactic Acid Calcium Magnesium Ferritin AST ALT Lactate Dehydrogenase Total Creatine Kinase C-Reactive Protein Total Protein Albumin Triglycerides Arterial Blood Glucose Arterial Blood Ionized Calcium Urine Creatinine Urine Chloride Vancomycin Trough Coronavirus (PCR) 06/25/20 06/26/20 06/26/20 23:14 01:30 03:25 WBC RBC Hgb Hct RDW Lymph % (Auto) Lymph # (Auto) [place] # (Auto) Seg Neuts % (Manual) Lymphocytes % (Manual) Nucleated RBC % Seg Neutrophils # Seg Neutrophils # Man Lymphocytes # (Manual) Monocytes # (Manual) PT INR APTT D-Dimer Heparin Anti-Xa Level < 0.10 L ABG pH POC ABG pCO2 POC ABG pO2 ABG Hemoglobin 11.8 L ABG Oxyhemoglobin ABG Sodium 127.1 L ABG Potassium 5.4 H ABG Chloride ABG Glucose 155 H Carboxyhemoglobin 0.3 L Sodium Potassium Chloride Carbon Dioxide BUN Creatinine Glucose POC Glucose 148 H Lactic Acid Calcium Magnesium Ferritin AST ALT Lactate Dehydrogenase Total Creatine Kinase C-Reactive Protein Total Protein Albumin Triglycerides Arterial Blood Glucose 155 H Arterial Blood Ionized Calcium 4.2 L Urine Creatinine Urine Chloride Vancomycin Trough Coronavirus (PCR) 06/26/20 06/26/20 06/26/20 03:59 05:14 05:47 WBC 36.5 H RBC 3.26 L Hgb 9.7 L Hct 28.2 L RDW Lymph % (Auto) Lymph # (Auto) [place] # (Auto) Seg Neuts % (Manual) 92.0 H Lymphocytes % (Manual) 4.0 L Nucleated RBC % Seg Neutrophils # Seg Neutrophils # Man 33.6 H Lymphocytes # (Manual) Monocytes # (Manual) PT INR APTT D-Dimer Heparin Anti-Xa Level ABG pH POC ABG pCO2 POC ABG pO2 ABG Hemoglobin ABG Oxyhemoglobin ABG Sodium ABG Potassium ABG Chloride ABG Glucose Carboxyhemoglobin Sodium Potassium 5.9 H Chloride Carbon Dioxide 20 L BUN 144 H Creatinine 6.4 H Glucose 149 H POC Glucose 128 H Lactic Acid Calcium 7.6 L Magnesium Ferritin AST ALT Lactate Dehydrogenase Total Creatine Kinase C-Reactive Protein Total Protein Albumin Triglycerides Arterial Blood Glucose Arterial Blood Ionized Calcium Urine Creatinine Urine Chloride Vancomycin Trough Coronavirus (PCR) 06/26/20 06/26/20 06/26/20 05:47 12:47 17:42 WBC RBC Hgb Hct RDW Lymph % (Auto) Lymph # (Auto) [place] # (Auto) Seg Neuts % (Manual) Lymphocytes % (Manual) Nucleated RBC % Seg Neutrophils # Seg Neutrophils # Man Lymphocytes # (Manual) Monocytes # (Manual) PT 17.4 H INR 1.44 H APTT D-Dimer Heparin Anti-Xa Level ABG pH POC ABG pCO2 POC ABG pO2 ABG Hemoglobin ABG Oxyhemoglobin ABG Sodium ABG Potassium ABG Chloride ABG Glucose Carboxyhemoglobin Sodium Potassium Chloride Carbon Dioxide BUN Creatinine Glucose POC Glucose 124 H 127 H Lactic Acid Calcium Magnesium Ferritin AST ALT Lactate Dehydrogenase Total Creatine Kinase C-Reactive Protein Total Protein Albumin Triglycerides Arterial Blood Glucose Arterial Blood Ionized Calcium Urine Creatinine Urine Chloride Vancomycin Trough Coronavirus (PCR) 06/26/20 06/27/20 06/27/20 23:30 03:32 04:00 WBC RBC Hgb 8.7 L Hct 26.4 L RDW Lymph % (Auto) Lymph # (Auto) [place] # (Auto) Seg Neuts % (Manual) Lymphocytes % (Manual) Nucleated RBC % Seg Neutrophils # Seg Neutrophils # Man Lymphocytes # (Manual) Monocytes # (Manual) PT INR APTT D-Dimer Heparin Anti-Xa Level ABG pH 7.298 L POC ABG pCO2 POC ABG pO2 ABG Hemoglobin 9.6 L ABG Oxyhemoglobin ABG Sodium 124.4 L ABG Potassium 6.6 H ABG Chloride ABG Glucose 136 H Carboxyhemoglobin Sodium Potassium Chloride Carbon Dioxide BUN Creatinine Glucose POC Glucose 123 H Lactic Acid Calcium Magnesium Ferritin AST ALT Lactate Dehydrogenase Total Creatine Kinase C-Reactive Protein Total Protein Albumin Triglycerides Arterial Blood Glucose 136 H Arterial Blood Ionized Calcium 4.1 L Urine Creatinine Urine Chloride Vancomycin Trough Coronavirus (PCR) 06/27/20 06/27/20 06/27/20 05:26 10:14 11:58 WBC RBC Hgb Hct RDW Lymph % (Auto) Lymph # (Auto) [place] # (Auto) Seg Neuts % (Manual) Lymphocytes % (Manual) Nucleated RBC % Seg Neutrophils # Seg Neutrophils # Man Lymphocytes # (Manual) Monocytes # (Manual) PT INR APTT D-Dimer Heparin Anti-Xa Level ABG pH POC ABG pCO2 POC ABG pO2 ABG Hemoglobin ABG Oxyhemoglobin ABG Sodium ABG Potassium ABG Chloride ABG Glucose Carboxyhemoglobin Sodium 136 L Potassium 7.0 H* Chloride 97.8 L Carbon Dioxide BUN 172 H Creatinine 7.4 H Glucose 129 H POC Glucose 124 H 115 H Lactic Acid Calcium 7.6 L Magnesium Ferritin AST ALT Lactate Dehydrogenase Total Creatine Kinase C-Reactive Protein Total Protein Albumin Triglycerides Arterial Blood Glucose Arterial Blood Ionized Calcium Urine Creatinine Urine Chloride Vancomycin Trough Coronavirus (PCR) Chest x-ray: image reviewed Allied health notes reviewed: nursing
--- NOTE | 2020-06-27 14:09 | Progress Note ---
Assessment and Plan Telemetry reviewed: Afib, HR 100-110. Continue PO Amiodarone and initiate PO lopressor. Continue Heparin gtt. Electrolyte management per nephrology. Pt was seen in conjunction with Dr Sumanth Santos, who agrees with this assessment and plan of care. - Patient Problems (1) Acute respiratory failure with hypoxia Current Visit: Yes Status: Acute (2) Sepsis Current Visit: Yes Status: Acute Qualifiers: Severe sepsis acute organ dysfunction type: acute respiratory failure Severe sepsis shock status: with septic shock (3) Atrial fibrillation with rapid ventricular response Current Visit: Yes Status: Acute (4) Acute renal failure Current Visit: Yes Status: Acute (5) Pneumonia due to COVID-19 virus Current Visit: Yes Status: Acute (6) Elevated LFTs Current Visit: Yes Status: Acute (7) Hyperkalemia Current Visit: Yes Status: Acute Subjective Date of service: 06/27/20 Principal diagnosis: ARF/Septic Shock/COVID-19 PNA, AF with RVR Interval history: Pt is lying supine, sedated, remains intubated. Telemetry reviewed: Afib HR 100-110. Objective Last Vital Signs Temp 98.3 F 06/27/20 12:45 Pulse 109 H 06/27/20 12:45 Resp 30 H 06/27/20 12:45 BP 96/54 06/27/20 12:45 Pulse Ox 94 06/27/20 12:45 - Physical Examination General: Other (intubated, lethargic) Neck: Positive: neck supple Cardiac: Positive: irregularly irregular, S1/S2 Lungs: Positive: Decreased Breath Sounds Neuro: Positive: Other (intubated, lethargic) Abdomen: Positive: Soft Skin: Negative: Rash, Wound Extremities: Present: upper extr. pulses, lower extr. pulses - Labs and Meds CBC 06/27/20 Range/Units 04:00 Hgb 8.7 L (11.8-15.2) gm/dl Hct 26.4 L (35.5-45.6) % Plt Count 205 (140-440) K/mm3 Comprehensive Metabolic Panel 06/27/20 Range/Units 10:14 Sodium 136 L (137-145) mmol/L Potassium 7.0 H* (3.6-5.0) mmol/L Chloride 97.8 L (98-107) mmol/L Carbon Dioxide 22 (22-30) mmol/L BUN 172 H (9-20) mg/dL Creatinine 7.4 H (0.8-1.3) mg/dL Glucose 129 H (75-100) mg/dL Calcium 7.6 L (8.4-10.2) mg/dL - Imaging and Cardiology EKG: report reviewed, image reviewed - Telemetry EKG Rhythm: Atrial Fibrillation - EKG Sinus rhythms and dysrhythmias: sinus tachycardia - Allied health notes Allied health notes reviewed: nursing
[2020-06-27] MEDS: METOPROLOL TARTRATE 25 MG TAB PO SCH ×2 (17:58→21:28)
--- NOTE | 2020-06-27 18:11 | Progress Note ---
Assessment and Plan Cultures: SARS CoV2 PCR: Positive as outpatient Blood culture: no growth Sputum culture: no growth A/P: 59-year-old male with obesity, obesity hypoventilation syndrome: #Severe sepsis with septic shock: likely secondary to critical COVID-19 pneumonia. Blood cultures so far negative. ?Bacterial pneumonia component, but sputum culture with no growth. On empiric abx, steroids. Completed Remdesivir. #Critical COVID-19 pneumonia: Procalcitonin also high, treating with empiric antibiotics. #Acute hypoxic respiratory failure: on the vent #Transaminitis: Likely secondary to COVID-19. #GIRISH: creatinine elevated. Recs: -Continue steroids for at least total 10 days -s/p Remdesivir -Continue empiric IV Cefepime x 7 days given ongoing pressor use -prophylactic anticoagulation based on d-dimer per hospital protocol -trend ferritin, LDH, d-dimer, CRP every 2-3 days for risk stratification and to assess disease progression -extremely poor prognosis Юлия Finney MD [facility] O: [phone] F: [phone] Subjective Date of service: 06/27/20 Principal diagnosis: ARF/Septic Shock/COVID-19 PNA, AF with RVR Interval history: Afebrile, no acute change present. Imaging personally reviewed: Chest x-ray: Worsening bilateral pneumonia. Objective - Exam Narrative Exam: Physical exam deferred due to PPE conservation strategy. Please refer to primary team's note. - Constitutional Vitals: Vital Signs Temp Pulse Resp BP Pulse Ox 98.6 F 124 H 27 H 169/63 95 06/27/20 15:55 06/27/20 17:58 06/27/20 17:00 06/27/20 17:58 06/27/20 17:00 Temperature -Last 24 Hours Temperature 98.6 F Temperature 98.3 F Temperature 98.6 F Temperature 98.5 F Temperature 98.7 F Temperature 98.1 F Temperature 99.1 F Temperature 99.7 F - Labs CBC & Chem 7: 06/27/20 04:00 06/27/20 10:14 Labs: Abnormal lab results 06/26/20 06/27/20 06/27/20 Range/Units 23:30 03:32 04:00 Hgb 8.7 L (11.8-15.2) gm/dl Hct 26.4 L (35.5-45.6) % ABG pH 7.298 L (7.320-7.450) ABG Hemoglobin 9.6 L (12.0-17.5) ABG Sodium 124.4 L (136.0-145.0) mmol/L ABG Potassium 6.6 H (3.40-4.50) mmol/L ABG Glucose 136 H (65-95) mg/dL Sodium (137-145) mmol/L Potassium (3.6-5.0) mmol/L Chloride (98-107) mmol/L BUN (9-20) mg/dL Creatinine (0.8-1.3) mg/dL Glucose (75-100) mg/dL POC Glucose 123 H (70-105) mg/dL Calcium (8.4-10.2) mg/dL Arterial Blood Glucose 136 H (65-95) mg/dL Arterial Blood Ionized Calcium 4.1 L (4.6-5.3) mg/dL 06/27/20 06/27/20 06/27/20 Range/Units 05:26 10:14 11:58 Hgb (11.8-15.2) gm/dl Hct (35.5-45.6) % ABG pH (7.320-7.450) ABG Hemoglobin (12.0-17.5) ABG Sodium (136.0-145.0) mmol/L ABG Potassium (3.40-4.50) mmol/L ABG Glucose (65-95) mg/dL Sodium 136 L (137-145) mmol/L Potassium 7.0 H* (3.6-5.0) mmol/L Chloride 97.8 L (98-107) mmol/L BUN 172 H (9-20) mg/dL Creatinine 7.4 H (0.8-1.3) mg/dL Glucose 129 H (75-100) mg/dL POC Glucose 124 H 115 H (70-105) mg/dL Calcium 7.6 L (8.4-10.2) mg/dL Arterial Blood Glucose (65-95) mg/dL Arterial Blood Ionized Calcium (4.6-5.3) mg/dL
[2020-06-27] MEDS ORDERED: SODIUM POLYSTYRENE 15 GM/60 ML ORAL LIQD PO ONE (22:25)
[2020-06-28] MEDS ORDERED: SODIUM CHLORIDE 0.9% 100 ML IV PRN (01:25)
[2020-06-28] MEDS: METOCLOPRAMIDE 10 MG/2 ML INJ IV SCH ×4 (01:41→21:08)
[2020-06-28] MEDS: fentaNYL 100 MCG/2 ML INJ IV PRN (04:32)
[2020-06-28] MEDS: NORepinephrine/NS 4 MG-250 ML 4 MG/250 ML BAG IV SCH (04:39)
[2020-06-28] MEDS: fentaNYL DRIP Premix 2,000 MCG/100 ML BAG IV SCH ×3 (05:07→19:46)
[2020-06-28] MEDS: INSULIN REGULAR, HUMAN 100 UNITS/1 ML SUB-Q SCH ×4 (05:50→23:58)
[2020-06-28] MEDS: HEPARIN 10,000 UNIT/1 ML VIAL IV PRN (06:11)
[2020-06-28] MEDS: DOCUSATE SODIUM 100 MG/10 ML ORAL LIQD FEEDTUBE SCH ×2 (09:42→21:08)
[2020-06-28] MEDS: AMIODARONE 200 MG TAB PO SCH ×2 (09:42→13:22)
[2020-06-28] MEDS: METOPROLOL TARTRATE 25 MG TAB PO SCH ×2 (09:42→13:23)
[2020-06-28] MEDS: POLYETHYLENE GLYCOL 3350 17 GM POWDER PO SCH (09:43)
[2020-06-28] MEDS: dexAMETHasone 4 MG/ML VIAL IV SCH (09:43)
[2020-06-28] MEDS: FAMOTIDINE 20 MG/2 ML INJ IV SCH (09:43)
[2020-06-28] MEDS: ASCORBIC ACID 250 MG TAB PO SCH ×2 (09:44→21:08)
[2020-06-28] MEDS: CHOLECALCIFEROL (VIT D3) 1000 UNIT (25 mcg) TAB PO SCH (09:45)
[2020-06-28] MEDS: ZINC SULFATE 220 MG CAP PO SCH ×2 (09:45→21:08)
[2020-06-28 10:39] LABS: Calcium 7.6 mg/dL (8.4-10.2)
--- NOTE | 2020-06-28 10:52 | Progress Note ---
Assessment and Plan - Patient Problems (1) Acute renal failure Current Visit: Yes Status: Acute Plan to address problem: Acute kidney failure Covid as stated nephropathy -prerenal azotemia versus acute tubular necrosis. Kidney function worsening and patient developed hyperkalemia, refractory acidosis and worsening azotemia. Hemodialysis initiated on June 22. Patient tolerated treatment June 22. On June 23, treatment was cut short by 15 minutes due to tachycardia. Tolerated hemodialysis June 24 with no problems and 1 L ultrafiltration. Hemodynamic status has improved as patient is now off of vasopressors. Hemodialysis again today if potassium is not corrected with medications (2) Severe sepsis with septic shock Current Visit: Yes Status: Acute Plan to address problem: Continue antibiotics per infectious disease ada accommodation consultant appropriately adjusted to the degree of renal function. Patient is off of vasopressors. (3) Hyperkalemia Current Visit: Yes Status: Acute Plan to address problem: Potassium increased last night and patient had to be dialyzed early this morning. Repeat potassium still 6.5. Will need dialysis again today. 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 I reviewed multidi sciplinary notes and discussed with staff and physicians as needed. Patient is sedated on propofol and fentanyl. He is on anticoagulation with intravenous heparin. Discussed with the nurse on medical floor. Patient is still off of vasopressors. He had dialysis again early this morning due to hyperkalemia. Potassium was 7.3. Objective - Exam Narrative Exam: Patient was not examined at the bedside today due to personal protective equipment preservation during the COVID-19 pandemic. Patient is off pressors now - Vital Signs Vital signs: Vital Signs - 12hr 06/27/20 06/27/20 06/27/20 22:51 23:01 23:09 Temperature Pulse Rate 113 H 109 H 114 H Pulse Rate [ From Monitor] Respiratory 23 27 H 29 H Rate Blood Pressure 159/75 168/73 168/73 O2 Sat by Pulse 94 94 94 Oximetry O2 Sat by Pulse Oximetry [ Anterior Bilateral Throughout] 06/27/20 06/27/20 06/27/20 23:11 23:21 23:30 Temperature Pulse Rate 100 H 115 H 115 H Pulse Rate [ From Monitor] Respiratory 30 H 25 H 21 Rate Blood Pressure 168/73 155/73 137/76 O2 Sat by Pulse 94 94 94 Oximetry O2 Sat by Pulse Oximetry [ Anterior Bilateral Throughout] 06/27/20 06/27/20 06/27/20 23:41 23:48 23:51 Temperature 99.0 F Pulse Rate 108 H 101 H Pulse Rate [ From Monitor] Respiratory 31 H 30 H Rate Blood Pressure 137/76 131/68 O2 Sat by Pulse 94 94 Oximetry O2 Sat by Pulse Oximetry [ Anterior Bilateral Throughout] 06/28/20 06/28/20 06/28/20 00:00 00:01 00:11 Temperature Pulse Rate 120 H 111 H 102 H Pulse Rate [ 120 H From Monitor] Respiratory 30 H 30 H 30 H Rate Blood Pressure 114/61 114/61 O2 Sat by Pulse 90 93 94 Oximetry O2 Sat by Pulse Oximetry [ Anterior Bilateral Throughout] 06/28/20 06/28/20 06/28/20 00:21 00:26 00:30 Temperature Pulse Rate 102 H 98 H 107 H Pulse Rate [ From Monitor] Respiratory 30 H 30 H Rate Blood Pressure 132/72 132/72 106/56 O2 Sat by Pulse 93 92 90 Oximetry O2 Sat by Pulse Oximetry [ Anterior Bilateral Throughout] 06/28/20 06/28/20 06/28/20 00:41 00:51 01:00 Temperature Pulse Rate 111 H 99 H 113 H Pulse Rate [ From Monitor] Respiratory 30 H 30 H 30 H Rate Blood Pressure 106/56 109/52 110/55 O2 Sat by Pulse 93 92 93 Oximetry O2 Sat by Pulse Oximetry [ Anterior Bilateral Throughout] 06/28/20 06/28/20 06/28/20 01:11 01:21 01:30 Temperature Pulse Rate 109 H 99 H 103 H Pulse Rate [ From Monitor] Respiratory 30 H 30 H 30 H Rate Blood Pressure 110/55 100/50 99/47 O2 Sat by Pulse 95 93 94 Oximetry O2 Sat by Pulse Oximetry [ Anterior Bilateral Throughout] 06/28/20 06/28/20 06/28/20 01:41 01:51 02:00 Temperature Pulse Rate 86 94 H 101 H Pulse Rate [ From Monitor] Respiratory 30 H 30 H 30 H Rate Blood Pressure 100/50 105/50 94/54 O2 Sat by Pulse 93 94 94 Oximetry O2 Sat by Pulse Oximetry [ Anterior Bilateral Throughout] 06/28/20 06/28/20 06/28/20 02:11 02:21 02:30 Temperature Pulse Rate 89 93 H 90 Pulse Rate [ From Monitor] Respiratory 30 H 30 H 30 H Rate Blood Pressure 105/50 109/47 104/46 O2 Sat by Pulse 94 94 94 Oximetry O2 Sat by Pulse Oximetry [ Anterior Bilateral Throughout] 06/28/20 06/28/20 06/28/20 02:41 02:51 03:01 Temperature Pulse Rate 96 H 104 H 103 H Pulse Rate [ From Monitor] Respiratory 32 H 28 H 22 Rate Blood Pressure 104/46 121/65 124/70 O2 Sat by Pulse 95 95 95 Oximetry O2 Sat by Pulse Oximetry [ Anterior Bilateral Throughout] 06/28/20 06/28/20 06/28/20 03:10 03:11 03:15 Temperature 98.9 F Pulse Rate 103 H 100 H 113 H Pulse Rate [ From Monitor] Respiratory 28 H 28 H Rate Blood Pressure 124/70 124/70 128/76 O2 Sat by Pulse 95 Oximetry O2 Sat by Pulse 94 Oximetry [ Anterior Bilateral Throughout] 06/28/20 06/28/20 06/28/20 03:21 03:30 03:41 Temperature Pulse Rate 104 H 110 H 111 H Pulse Rate [ From Monitor] Respiratory 28 H 19 21 Rate Blood Pressure 128/71 144/64 144/64 O2 Sat by Pulse 93 93 91 Oximetry O2 Sat by Pulse Oximetry [ Anterior Bilateral Throughout] 06/28/20 06/28/20 06/28/20 03:45 03:51 03:56 Temperature 98.1 F Pulse Rate 114 H 121 H Pulse Rate [ From Monitor] Respiratory 17 Rate Blood Pressure 138/62 138/62 O2 Sat by Pulse 89 Oximetry O2 Sat by Pulse Oximetry [ Anterior Bilateral Throughout] 06/28/20 06/28/20 06/28/20 04:00 04:01 04:11 Temperature Pulse Rate 112 H 124 H 111 H Pulse Rate [ 116 H From Monitor] Respiratory 30 H 20 24 Rate Blood Pressure 128/58 128/58 128/58 O2 Sat by Pulse 90 91 91 Oximetry O2 Sat by Pulse Oximetry [ Anterior Bilateral Throughout] 06/28/20 06/28/20 06/28/20 04:15 04:21 04:30 Temperature Pulse Rate 115 H 130 H 115 H Pulse Rate [ From Monitor] Respiratory 17 Rate Blood Pressure 118/63 118/63 98/51 O2 Sat by Pulse 87 Oximetry O2 Sat by Pulse Oximetry [ Anterior Bilateral Throughout] 06/28/20 06/28/20 06/28/20 04:31 04:40 04:45 Temperature Pulse Rate 128 H 127 H 118 H Pulse Rate [ From Monitor] Respiratory 30 H 28 H Rate Blood Pressure 98/51 86/46 109/65 O2 Sat by Pulse 87 89 Oximetry O2 Sat by Pulse Oximetry [ Anterior Bilateral Throughout] 06/28/20 06/28/20 06/28/20 04:50 05:00 05:10 Temperature Pulse Rate 110 H 113 H 113 H Pulse Rate [ From Monitor] Respiratory 24 21 27 H Rate Blood Pressure 93/57 112/38 107/52 O2 Sat by Pulse 91 91 92 Oximetry O2 Sat by Pulse Oximetry [ Anterior Bilateral Throughout] 06/28/20 06/28/20 06/28/20 05:15 05:20 05:25 Temperature Pulse Rate 97 H 116 H 108 H Pulse Rate [ From Monitor] Respiratory 23 Rate Blood Pressure 113/45 120/54 115/60 O2 Sat by Pulse 93 93 Oximetry O2 Sat by Pulse Oximetry [ Anterior Bilateral Throughout] 06/28/20 06/28/20 06/28/20 05:30 05:31 05:41 Temperature Pulse Rate 108 H 126 H 137 H Pulse Rate [ From Monitor] Respiratory 25 H 15 Rate Blood Pressure 111/51 111/51 112/64 O2 Sat by Pulse 89 88 Oximetry O2 Sat by Pulse Oximetry [ Anterior Bilateral Throughout] 06/28/20 06/28/20 06/28/20 05:45 05:50 06:00 Temperature Pulse Rate 120 H 118 H 128 H Pulse Rate [ From Monitor] Respiratory 29 H 27 H Rate Blood Pressure 93/64 99/60 112/67 O2 Sat by Pulse 92 91 Oximetry O2 Sat by Pulse Oximetry [ Anterior Bilateral Throughout] 06/28/20 06/28/20 06/28/20 06:11 06:15 06:20 Temperature Pulse Rate 127 H 114 H 110 H Pulse Rate [ From Monitor] Respiratory 24 24 Rate Blood Pressure 109/59 96/61 104/59 O2 Sat by Pulse 90 92 Oximetry O2 Sat by Pulse Oximetry [ Anterior Bilateral Throughout] 06/28/20 06/28/20 06/28/20 06:29 06:30 06:40 Temperature 98.8 F Pulse Rate 109 H 115 H 116 H Pulse Rate [ From Monitor] Respiratory 26 H 30 H 22 Rate Blood Pressure 106/58 103/54 122/64 O2 Sat by Pulse 93 93 Oximetry O2 Sat by Pulse 93 Oximetry [ Anterior Bilateral Throughout] 06/28/20 06/28/20 06/28/20 06:50 07:00 07:10 Temperature Pulse Rate 122 H 103 H 129 H Pulse Rate [ From Monitor] Respiratory 30 H 26 H 24 Rate Blood Pressure 119/63 125/61 112/55 O2 Sat by Pulse 94 94 93 Oximetry O2 Sat by Pulse Oximetry [ Anterior Bilateral Throughout] 06/28/20 06/28/20 06/28/20 08:00 08:30 09:42 Temperature 99.1 F Pulse Rate 134 H 120 H Pulse Rate [ From Monitor] Respiratory Rate Blood Pressure 83/44 121/76 O2 Sat by Pulse 93 Oximetry O2 Sat by Pulse Oximetry [ Anterior Bilateral Throughout] - Lab 06/27/20 04:00 06/28/20 10:03 Most recent lab results ABG pH 7.338 (7.320-7.450) 06/28/20 02:16 Calcium 7.6 mg/dL (8.4-10.2) L 06/28/20 10:03 Magnesium 2.70 mg/dL (1.7-2.3) H 06/18/20 20:33 Urine Creatinine 192.4 mg/dL (0.1-20.0) H 06/18/20 15:00 Urine Sodium 28 mmol/L 06/18/20 15:00 Medications & Allergies - Medications Allergies/Adverse Reactions: Allergies No Known Allergies Allergy (Unverified 06/17/20 14:24) Home Medications: Home Medications Medication Instructions Recorded Confirmed Last Taken Type Losartan/Hydrochlorothiazide 1 each PO QDAY 06/19/20 06/19/20 Unknown History [Losartan-Hctz 100-25 mg Tab] amLODIPine [Norvasc] 5 mg PO DAILY 06/19/20 06/19/20 Unknown History Active Medications: Generic Name Dose Route Start Last Admin Trade Name Freq PRN Reason Stop Dose Admin Acetaminophen 650 mg 06/17/20 14:17 06/19/20 06:42 Acetaminophen 325 Mg Tab PO 650 mg Q4H PRN Administration Pain MILD(1-3)/Fever >100.5/ROBERTS Amiodarone HCl 400 mg 06/25/20 20:00 06/28/20 09:42 Amiodarone 200 Mg Tab PO 400 mg TID CONNOR Administration Lipase/Protease/Amylase 1 each 06/19/20 12:15 Lipase 10,500/Protease 25,000/Amylase 43,750 (Units) Dr Cap FEEDTUBE PRN PRN For Clogged Feeding Tube Ascorbic Acid 250 mg 06/17/20 22:00 06/28/20 09:44 Ascorbic Acid 250 Mg Tab PO 250 mg BID CONNOR Administration Cholecalciferol 1,000 unit 06/18/20 10:00 06/28/20 09:45 Cholecalciferol (Vit D3) 1000 Unit (25 Mcg) Tab PO 1,000 unit DAILY CONNOR Administration Docusate Sodium 100 mg 06/23/20 15:00 06/28/20 09:42 Docusate Sodium 100 Mg/10 Ml Oral Liqd FEEDTUBE 100 mg BID CONNOR Administration Famotidine 20 mg 06/20/20 11:00 06/28/20 09:43 Famotidine 20 Mg/2 Ml Inj IV 20 mg DAILY CONNOR Administration Fentanyl 50 mcg 06/18/20 01:02 06/28/20 04:32 Fentanyl 100 Mcg/2 Ml Inj IV 50 mcg Q10MIN PRN Administration ANALGESIA Heparin Sodium (Porcine) 4,500 unit 06/19/20 11:34 06/25/20 19:22 Heparin 10,000 Units/10 Ml Vial 40 unit/kg (4500 unit) 4,500 unit IV Administration Q6H PRN Anti-Xa Assay < 0.1 units/ml Heparin Sodium (Porcine) 5,000 unit 06/22/20 12:53 06/28/20 06:11 Heparin 10,000 Unit/1 Ml Vial IV 5,000 unit PAM PRN Administration hemodialysis Hydrophilic Ointment 1 applic 06/17/20 22:52 Lip Therapy Vaseline TP Q2HR PRN Dry Lips Norepinephrine 4 mg in 250 mls @ 7.5 mls/hr 06/18/20 00:00 06/28/20 06:54 Levophed Drip 4 Mg/Ns 250 Ml IV 0 mcg/min TITR CONNOR 0 mls/hr Titration Protocol 2 MCG/MIN Propofol 1,000 mg in 100 mls @ 3.402 mls/hr 06/18/20 01:00 06/28/20 05:17 Diprivan 10 Mg/Ml IV 25 mcg/kg/min TITR CONNOR 17.01 mls/hr Administration Protocol 5 MCG/KG/MIN Fentanyl Citrate 2,000 mcg in 100 mls @ 5.67 mls/hr 06/18/20 02:00 06/28/20 06:54 Fentanyl Drip Premix IV 2 mcg/kg/hr TITR CONNOR 11.34 mls/hr Titration Protocol 1 MCG/KG/HR Vasopressin 20 unit/ Sodium 101 mls @ 9.09 mls/hr 06/18/20 10:00 06/24/20 18:05 Chloride IV 0 units/min TITR CONNOR 0 mls/hr Titration Protocol 0.03 UNITS/MIN Sodium Chloride 500 mls @ 1 mls/hr 06/18/20 09:38 06/19/20 21:37 Nacl 0.9% 500 Ml IV 0 mls/hr DIRECT PRN Infusion ARTERIAL LINE FLUSH Heparin Sodium/Sodium Chloride 25,000 unit in 500 mls @ 30 mls/hr 06/19/20 12:00 06/25/20 19:49 Heparin/ 0.45% Nacl-25,000 Unit/500 Ml IV 0 units/hr TITR CONNOR 0 mls/hr Titration Protocol 1,500 UNITS/HR Sodium Chloride 100 mls @ 999 mls/hr 06/28/20 01:25 Nacl 0.9% IV PAM PRN Hypotension Insulin Human Regular 0 units 06/18/20 12:00 06/28/20 05:50 Insulin Regular, Human 100 Units/1 Ml SUB-Q Not Given Q6HR [facility] Protocol Lorazepam 1 mg 06/17/20 17:05 06/17/20 17:10 Lorazepam 2 Mg/Ml Vial IV 1 mg BID PRN Administration Anxiety Metoclopramide HCl 5 mg 06/22/20 13:00 06/28/20 06:29 Metoclopramide 10 Mg/2 Ml Inj IV 5 mg Q6H CONNOR Administration Metoprolol Tartrate 25 mg 06/27/20 15:00 06/28/20 09:42 Metoprolol Tartrate 25 Mg Tab PO 25 mg TID CONNOR Administration Multi-Ingred Cream/Lotion/Oil/Oint 1 applic 06/17/20 22:52 Mineral Oil/Petrolatum, White Ophth Oint 3.5 Gm OU Q4HR PRN Dry Eye(s) Ondansetron HCl 4 mg 06/17/20 14:17 Ondansetron 4 Mg/2 Ml Inj IV Q8H PRN Nausea And Vomiting Polyethylene Glycol 17 gm 06/23/20 15:00 06/28/20 09:43 Polyethylene Glycol 3350 17 Gm Powder PO 17 gm QDAY CONNOR Administration Simple Syrup 15 ml 06/19/20 12:15 Simple Syrup 15 Ml FEEDTUBE PRN PRN Hypoglycemia Simple Syrup 30 ml 06/19/20 12:15 Simple Syrup 15 Ml FEEDTUBE PRN PRN Hypoglycemia Sodium Bicarbonate 325 mg 06/19/20 12:15 Sodium Bicarbonate 325 Mg Tab FEEDTUBE PRN PRN For Clogged Feeding Tube Sodium Chloride 10 ml 06/17/20 22:00 06/28/20 09:44 Sodium Chloride 0.9% 10 Ml Flush Syringe IV 10 ml BID CONNOR Administration Sodium Chloride 10 ml 06/17/20 14:17 Sodium Chloride 0.9% 10 Ml Flush Syringe IV PRN PRN LINE FLUSH Zinc Sulfate 220 mg 06/17/20 22:00 06/28/20 09:45 Zinc Sulfate 220 Mg Cap PO 220 mg BID CONNOR Administration
[2020-06-28] MEDS ORDERED: DEXTROSE 50% IN WATER (25GM) 50 ML SYRINGE IV STA (10:58)
[2020-06-28] MEDS ORDERED: SODIUM BICARB 8.4% 50 MEQ/50 ML SYRINGE IV STA (10:58)
[2020-06-28] MEDS ORDERED: INSULIN REGULAR, HUMAN 100 UNITS/1 ML IV ONE (11:00)
[2020-06-28] MEDS ORDERED: ALBUTEROL 2.5 MG/3 ML NEBU IH ONE (11:00)
[2020-06-28 11:18] LABS: Hemoglobin 8.9 gm/dl (11.8-15.2); Mean Corpuscular HGB Conc 33 % (32-34); Mean Corpuscular Volume 89 fl (84-94); Platelet Count 167 K/mm3 (140-440); Red Blood Count 3.03 M/mm3 (3.65-5.03)
--- NOTE | 2020-06-28 11:45 | Progress Note ---
Assessment and Plan Acute hypoxemic respiratory failure due to COVID-19 Severe COVID infection Severe Sepsis with shock Bilateral pneumonia Acute kidney injury (GIRISH) with acute tubular necrosis (ATN) Elevated liver enzymes Obesity - for repeat HD re: hyperkalemia - received hyperkalemia cocktail today also - begin Seroquel and wean off propofol - repeat lactate WNL - complete antibiotics per ID recommendations - continue daily SAT's & SBT's as tolerated - continue care as below otherwise; - continue tube feeds and advance to goal rate as tolerated - continue HD/UF per nephrology team for toxin and volume clearance - continue bowel regimen - rate control per cardiology team for afib RVR - Continue to wean supplemental oxygen for O2 sats >92% - Monitor blood pressure closely while optimizing sedation,wean vasopressor support for MAP > 65 mmHg - Critical care prone positioning - Agitation management, keep RASS -1 to -12 now off proning - VAP bundle addressed, aspiration precautions HOB >40 - continue lung protective strategies, permissive hypercapnic acceptable. - continue bronchodilators with pulmonary hygiene per RT - wean per pulmonary driven protocols otherwise - accuchecks with glycemic control per SSI (While critically ill target blood glucose of 140-180 mg/dL; avoid hypoglycemia) - sedation prn for target RASS -1 to -2 - continue enteral nutritional support at goal rate as tolerated - Monitor liver function test ,avoid hepatotoxic agents - azotemia per nephrology rec's - Avoid nephrotoxins, renally dose all medications, conservative fluid management - continue to avoid benzodiazepines, reduce the possibility of delirium, - prn analgesia per CPOT score - Maintenance of sleep-wake cycle, avoid delirium - Stress ulcer prophylaxis, Famotidine - PT/OT/ROM exercises - Mobility protocols for pressure ulcer prevention - CXR, ABG in am - CBC, CMP in am - Supportive transfusions to keep HgB >7g/dL - Monitor hemodynamics closely - continue other care per attending / other consultants COVID SPECIFIC INTERVENTIONS - continue steroids: Dexamethasone - continue with Remdesivir - monitor inflammatory markers - ferritin, D-dimer, CRP, LDH per facility protocol - continue anticoagulation per System Protocol based on d-dimer - continue contact and airborne isolation CONDITION: CRITICAL PROGNOSIS: GUARDED CODE STATUS: FULL CODE The high probability of a clinically significant, sudden or life-threatening deterioration of the [respiratory, cardiovascular, hematologic & neurologic] system(s) required my full and direct attention, intervention and personal management. The aggregate critical care time was [32] minutes without overlap. Time includes spent on; [x] Data Review and interpretation [x] Patient assessment and monitoring of vital signs [x] Documentation [x] Medication orders and management He was evaluated in the context of the global COVID-19 pandemic, which necessitated consideration that the patient might be at risk for infection with the virus that causes COVID-19. Institutional protocols and algorithms that pertain to the evaluation of patients at risk for COVID-19 are in a state of rapid change based on information released by regulatory bodies including the CDC and federal and state organizations. These policies and algorithms were followed during the patient's care in the ICU Please note that these policies, procedures and recommendations changed on a rapid basis. Subjective Date of service: 06/28/20 Principal diagnosis: ARF/Septic Shock/COVID-19 PNA, AF with RVR Interval history: Patient is seen today for: Ac hypoxemic respiratory failure; COVID-19; Severe Sepsis with shock; Zackery. pneumonia; GIRISH; Elevated liver enzymes; Obesity Seen and examined at bedside; 24hour events reviewed; nursing and respiratory care staff consulted; no adverse overnight events reported to me; resting in bed; remains on MVS; FiO2 at 55%; agitated during SAT's and on propofol now; still with hyperkalemia post dialysis; No emesis or overt aspiration; tolerating trickle feeds at 10 mls/hr so far Objective Vital Signs - 12hr 06/27/20 06/27/20 06/28/20 23:48 23:51 00:00 Temperature 99.0 F Pulse Rate 101 H 120 H Pulse Rate [ 120 H From Monitor] Respiratory 30 H 30 H Rate Blood Pressure 131/68 O2 Sat by Pulse 94 90 Oximetry O2 Sat by Pulse Oximetry [ Anterior Bilateral Throughout] 06/28/20 06/28/20 06/28/20 00:01 00:11 00:21 Temperature Pulse Rate 111 H 102 H 102 H Pulse Rate [ From Monitor] Respiratory 30 H 30 H 30 H Rate Blood Pressure 114/61 114/61 132/72 O2 Sat by Pulse 93 94 93 Oximetry O2 Sat by Pulse Oximetry [ Anterior Bilateral Throughout] 06/28/20 06/28/20 06/28/20 00:26 00:30 00:41 Temperature Pulse Rate 98 H 107 H 111 H Pulse Rate [ From Monitor] Respiratory 30 H 30 H Rate Blood Pressure 132/72 106/56 106/56 O2 Sat by Pulse 92 90 93 Oximetry O2 Sat by Pulse Oximetry [ Anterior Bilateral Throughout] 06/28/20 06/28/20 06/28/20 00:51 01:00 01:11 Temperature Pulse Rate 99 H 113 H 109 H Pulse Rate [ From Monitor] Respiratory 30 H 30 H 30 H Rate Blood Pressure 109/52 110/55 110/55 O2 Sat by Pulse 92 93 95 Oximetry O2 Sat by Pulse Oximetry [ Anterior Bilateral Throughout] 06/28/20 06/28/20 06/28/20 01:21 01:30 01:41 Temperature Pulse Rate 99 H 103 H 86 Pulse Rate [ From Monitor] Respiratory 30 H 30 H 30 H Rate Blood Pressure 100/50 99/47 100/50 O2 Sat by Pulse 93 94 93 Oximetry O2 Sat by Pulse Oximetry [ Anterior Bilateral Throughout] 06/28/20 06/28/20 06/28/20 01:51 02:00 02:11 Temperature Pulse Rate 94 H 101 H 89 Pulse Rate [ From Monitor] Respiratory 30 H 30 H 30 H Rate Blood Pressure 105/50 94/54 105/50 O2 Sat by Pulse 94 94 94 Oximetry O2 Sat by Pulse Oximetry [ Anterior Bilateral Throughout] 06/28/20 06/28/20 06/28/20 02:21 02:30 02:41 Temperature Pulse Rate 93 H 90 96 H Pulse Rate [ From Monitor] Respiratory 30 H 30 H 32 H Rate Blood Pressure 109/47 104/46 104/46 O2 Sat by Pulse 94 94 95 Oximetry O2 Sat by Pulse Oximetry [ Anterior Bilateral Throughout] 06/28/20 06/28/20 06/28/20 02:51 03:01 03:10 Temperature 98.9 F Pulse Rate 104 H 103 H 103 H Pulse Rate [ From Monitor] Respiratory 28 H 22 28 H Rate Blood Pressure 121/65 124/70 124/70 O2 Sat by Pulse 95 95 Oximetry O2 Sat by Pulse 94 Oximetry [ Anterior Bilateral Throughout] 06/28/20 06/28/20 06/28/20 03:11 03:15 03:21 Temperature Pulse Rate 100 H 113 H 104 H Pulse Rate [ From Monitor] Respiratory 28 H 28 H Rate Blood Pressure 124/70 128/76 128/71 O2 Sat by Pulse 95 93 Oximetry O2 Sat by Pulse Oximetry [ Anterior Bilateral Throughout] 06/28/20 06/28/20 06/28/20 03:30 03:41 03:45 Temperature Pulse Rate 110 H 111 H 114 H Pulse Rate [ From Monitor] Respiratory 19 21 Rate Blood Pressure 144/64 144/64 138/62 O2 Sat by Pulse 93 91 Oximetry O2 Sat by Pulse Oximetry [ Anterior Bilateral Throughout] 06/28/20 06/28/20 06/28/20 03:51 03:56 04:00 Temperature 98.1 F Pulse Rate 121 H 112 H Pulse Rate [ 116 H From Monitor] Respiratory 17 30 H Rate Blood Pressure 138/62 128/58 O2 Sat by Pulse 89 90 Oximetry O2 Sat by Pulse Oximetry [ Anterior Bilateral Throughout] 06/28/20 06/28/20 06/28/20 04:01 04:11 04:15 Temperature Pulse Rate 124 H 111 H 115 H Pulse Rate [ From Monitor] Respiratory 20 24 Rate Blood Pressure 128/58 128/58 118/63 O2 Sat by Pulse 91 91 Oximetry O2 Sat by Pulse Oximetry [ Anterior Bilateral Throughout] 06/28/20 06/28/20 06/28/20 04:21 04:30 04:31 Temperature Pulse Rate 130 H 115 H 128 H Pulse Rate [ From Monitor] Respiratory 17 30 H Rate Blood Pressure 118/63 98/51 98/51 O2 Sat by Pulse 87 87 Oximetry O2 Sat by Pulse Oximetry [ Anterior Bilateral Throughout] 06/28/20 06/28/20 06/28/20 04:40 04:45 04:50 Temperature Pulse Rate 127 H 118 H 110 H Pulse Rate [ From Monitor] Respiratory 28 H 24 Rate Blood Pressure 86/46 109/65 93/57 O2 Sat by Pulse 89 91 Oximetry O2 Sat by Pulse Oximetry [ Anterior Bilateral Throughout] 06/28/20 06/28/20 06/28/20 05:00 05:10 05:15 Temperature Pulse Rate 113 H 113 H 97 H Pulse Rate [ From Monitor] Respiratory 21 27 H Rate Blood Pressure 112/38 107/52 113/45 O2 Sat by Pulse 91 92 Oximetry O2 Sat by Pulse Oximetry [ Anterior Bilateral Throughout] 06/28/20 06/28/20 06/28/20 05:20 05:25 05:30 Temperature Pulse Rate 116 H 108 H 108 H Pulse Rate [ From Monitor] Respiratory 23 Rate Blood Pressure 120/54 115/60 111/51 O2 Sat by Pulse 93 93 Oximetry O2 Sat by Pulse Oximetry [ Anterior Bilateral Throughout] 06/28/20 06/28/20 06/28/20 05:31 05:41 05:45 Temperature Pulse Rate 126 H 137 H 120 H Pulse Rate [ From Monitor] Respiratory 25 H 15 Rate Blood Pressure 111/51 112/64 93/64 O2 Sat by Pulse 89 88 Oximetry O2 Sat by Pulse Oximetry [ Anterior Bilateral Throughout] 06/28/20 06/28/20 06/28/20 05:50 06:00 06:11 Temperature Pulse Rate 118 H 128 H 127 H Pulse Rate [ From Monitor] Respiratory 29 H 27 H 24 Rate Blood Pressure 99/60 112/67 109/59 O2 Sat by Pulse 92 91 90 Oximetry O2 Sat by Pulse Oximetry [ Anterior Bilateral Throughout] 06/28/20 06/28/20 06/28/20 06:15 06:20 06:29 Temperature 98.8 F Pulse Rate 114 H 110 H 109 H Pulse Rate [ From Monitor] Respiratory 24 26 H Rate Blood Pressure 96/61 104/59 106/58 O2 Sat by Pulse 92 Oximetry O2 Sat by Pulse 93 Oximetry [ Anterior Bilateral Throughout] 06/28/20 06/28/20 06/28/20 06:30 06:40 06:50 Temperature Pulse Rate 115 H 116 H 122 H Pulse Rate [ From Monitor] Respiratory 30 H 22 30 H Rate Blood Pressure 103/54 122/64 119/63 O2 Sat by Pulse 93 93 94 Oximetry O2 Sat by Pulse Oximetry [ Anterior Bilateral Throughout] 06/28/20 06/28/20 06/28/20 07:00 07:10 07:15 Temperature Pulse Rate 103 H 129 H 125 H Pulse Rate [ From Monitor] Respiratory 26 H 24 29 H Rate Blood Pressure 125/61 112/55 115/58 O2 Sat by Pulse 94 93 94 Oximetry O2 Sat by Pulse Oximetry [ Anterior Bilateral Throughout] 06/28/20 06/28/20 06/28/20 07:30 07:45 08:00 Temperature 99.1 F Pulse Rate 119 H 110 H 124 H Pulse Rate [ 118 H From Monitor] Respiratory 24 23 25 H Rate Blood Pressure 94/54 90/56 83/54 O2 Sat by Pulse 92 93 93 Oximetry O2 Sat by Pulse Oximetry [ Anterior Bilateral Throughout] 06/28/20 06/28/20 06/28/20 08:15 08:30 08:45 Temperature Pulse Rate 100 H 102 H 106 H Pulse Rate [ From Monitor] Respiratory 30 H 21 24 Rate Blood Pressure 88/51 83/44 104/50 O2 Sat by Pulse 93 92 95 Oximetry O2 Sat by Pulse Oximetry [ Anterior Bilateral Throughout] 06/28/20 06/28/20 06/28/20 09:00 09:15 09:30 Temperature Pulse Rate 102 H 116 H 113 H Pulse Rate [ From Monitor] Respiratory 27 H 30 H 25 H Rate Blood Pressure 117/63 121/67 121/76 O2 Sat by Pulse 96 95 95 Oximetry O2 Sat by Pulse Oximetry [ Anterior Bilateral Throughout] 06/28/20 06/28/20 06/28/20 09:42 09:45 10:01 Temperature Pulse Rate 120 H 105 H 112 H Pulse Rate [ From Monitor] Respiratory 22 19 Rate Blood Pressure 121/76 122/67 139/73 O2 Sat by Pulse 95 95 Oximetry O2 Sat by Pulse Oximetry [ Anterior Bilateral Throughout] 06/28/20 06/28/20 06/28/20 10:15 10:31 10:45 Temperature Pulse Rate 117 H 99 H 108 H Pulse Rate [ From Monitor] Respiratory 30 H 30 H 22 Rate Blood Pressure 129/70 116/54 116/54 O2 Sat by Pulse 94 94 95 Oximetry O2 Sat by Pulse Oximetry [ Anterior Bilateral Throughout] 06/28/20 06/28/20 06/28/20 11:01 11:15 11:27 Temperature Pulse Rate 100 H 99 H Pulse Rate [ 110 H From Monitor] Respiratory 30 H 25 H 30 H Rate Blood Pressure 120/58 121/67 O2 Sat by Pulse 94 94 93 Oximetry O2 Sat by Pulse Oximetry [ Anterior Bilateral Throughout] Constitutional: appears uncomfortable, other (morbidly obese, atraumatic, normocephalic, mild resp distress, orally intuabted) Eyes: non-icteric ENT: oropharynx moist, other (ETT 24 cm TROY) Neck: supple, no lymphadenopathy, other (Large , short neck) Effort: mildly labored Ascultation: Bilateral: diminished breath sounds, rhonchi Percussion: Bilateral: not dull Cardiovascular: irregular rhythm, other (S1,S2) Gastrointestinal: normoactive bowel sounds, non-distended, other (OG Tube) Integumentary: rash, other (Femoral CVC, Newell catheter) Extremities: no edema, pink and warm, pulses normal, no ischemia or petechiae, edema (trace to 1+) Neurologic: non-focal exam (grossly), pupils equal and round, other (unable to assess, sedated) Psychiatric: other (unable to assess, sedated) CBC and BMP: 06/28/20 10:03 06/28/20 10:03 ABG, PT/INR, D-dimer: ABG ABG pH 7.338 (7.320-7.450) 06/28/20 02:16 POC ABG pCO2 34.9 mmHg (32.0-48.0) 06/28/20 02:16 POC ABG pO2 79.0 mmHg (83-108) L 06/28/20 02:16 POC ABG HCO3 18.3 06/28/20 02:16 PT/INR, D-dimer PT 17.4 Sec. (12.2-14.9) H 06/26/20 05:47 INR 1.44 (0.87-1.13) H 06/26/20 05:47 D-Dimer 939.89 ng/mlDDU (0-234) H 06/17/20 14:48 Abnormal lab findings: Abnormal Labs 06/17/20 06/17/20 06/17/20 12:33 12:33 12:33 WBC 19.5 H RBC 5.18 H Hgb 15.5 H Hct RDW Lymph % (Auto) 3.8 L Lymph # (Auto) 0.7 L Dickenson # (Auto) Seg Neuts % (Manual) 99.0 H Lymphocytes % (Manual) 1.0 L Nucleated RBC % Seg Neutrophils # 18.2 H Seg Neutrophils # Man 19.3 H Lymphocytes # (Manual) 0.2 L Monocytes # (Manual) PT 16.5 H INR 1.33 H APTT D-Dimer 1025.04 H Heparin Anti-Xa Level ABG pH POC ABG pCO2 POC ABG pO2 ABG Hemoglobin ABG Oxyhemoglobin ABG Sodium ABG Potassium ABG Chloride ABG Glucose Carboxyhemoglobin Sodium 130 L Potassium 3.4 L Chloride 95.0 L Carbon Dioxide BUN 21 H Creatinine Glucose 137 H POC Glucose Lactic Acid Calcium 7.9 L Magnesium Ferritin AST 84 H ALT 67 H Lactate Dehydrogenase 437 H Total Creatine Kinase 310 H C-Reactive Protein 27.90 H Total Protein Albumin 2.9 L Triglycerides Arterial Blood Glucose Arterial Blood Ionized Calcium Urine Creatinine Urine Chloride Vancomycin Trough Coronavirus (PCR) 06/17/20 06/17/20 06/17/20 12:33 12:33 14:48 WBC RBC Hgb Hct RDW Lymph % (Auto) Lymph # (Auto) Dickenson # (Auto) Seg Neuts % (Manual) Lymphocytes % (Manual) Nucleated RBC % Seg Neutrophils # Seg Neutrophils # Man Lymphocytes # (Manual) Monocytes # (Manual) PT INR APTT D-Dimer Heparin Anti-Xa Level ABG pH POC ABG pCO2 POC ABG pO2 ABG Hemoglobin ABG Oxyhemoglobin ABG Sodium ABG Potassium ABG Chloride ABG Glucose Carboxyhemoglobin Sodium Potassium Chloride Carbon Dioxide BUN Creatinine Glucose POC Glucose Lactic Acid 2.50 H* 2.20 H* Calcium Magnesium Ferritin 2297.0 H AST ALT Lactate Dehydrogenase Total Creatine Kinase C-Reactive Protein Total Protein Albumin Triglycerides Arterial Blood Glucose Arterial Blood Ionized Calcium Urine Creatinine Urine Chloride Vancomycin Trough Coronavirus (PCR) 06/17/20 06/17/20 06/17/20 14:48 14:48 14:48 WBC RBC Hgb Hct RDW Lymph % (Auto) Lymph # (Auto) Dickenson # (Auto) Seg Neuts % (Manual) Lymphocytes % (Manual) Nucleated RBC % Seg Neutrophils # Seg Neutrophils # Man Lymphocytes # (Manual) Monocytes # (Manual) PT INR APTT D-Dimer 939.89 H Heparin Anti-Xa Level ABG pH POC ABG pCO2 POC ABG pO2 ABG Hemoglobin ABG Oxyhemoglobin ABG Sodium ABG Potassium ABG Chloride ABG Glucose Carboxyhemoglobin Sodium Potassium Chloride Carbon Dioxide BUN Creatinine Glucose 141 H POC Glucose Lactic Acid Calcium Magnesium Ferritin > 2000.0 H AST ALT Lactate Dehydrogenase 503 H Total Creatine Kinase C-Reactive Protein 24.70 H Total Protein Albumin Triglycerides Arterial Blood Glucose Arterial Blood Ionized Calcium Urine Creatinine Urine Chloride Vancomycin Trough Coronavirus (PCR) 06/17/20 06/17/20 06/17/20 16:54 19:39 23:43 WBC RBC Hgb Hct RDW Lymph % (Auto) Lymph # (Auto) Dickenson # (Auto) Seg Neuts % (Manual) Lymphocytes % (Manual) Nucleated RBC % Seg Neutrophils # Seg Neutrophils # Man Lymphocytes # (Manual) Monocytes # (Manual) PT INR APTT D-Dimer Heparin Anti-Xa Level ABG pH 7.571 H POC ABG pCO2 24.3 L POC ABG pO2 41.6 L ABG Hemoglobin ABG Oxyhemoglobin 84.0 L ABG Sodium 131.0 L ABG Potassium ABG Chloride ABG Glucose 163 H Carboxyhemoglobin Sodium Potassium Chloride Carbon Dioxide BUN Creatinine Glucose POC Glucose 185 H Lactic Acid 2.10 H* Calcium Magnesium Ferritin AST ALT Lactate Dehydrogenase Total Creatine Kinase C-Reactive Protein Total Protein Albumin Triglycerides Arterial Blood Glucose 163 H Arterial Blood Ionized Calcium 4.4 L Urine Creatinine Urine Chloride Vancomycin Trough Coronavirus (PCR) 06/18/20 06/18/20 06/18/20 00:17 00:23 03:55 WBC RBC Hgb Hct RDW Lymph % (Auto) Lymph # (Auto) Dickenson # (Auto) Seg Neuts % (Manual) Lymphocytes % (Manual) Nucleated RBC % Seg Neutrophils # Seg Neutrophils # Man Lymphocytes # (Manual) Monocytes # (Manual) PT INR APTT D-Dimer Heparin Anti-Xa Level ABG pH POC ABG pCO2 POC ABG pO2 56.5 L 48.3 L ABG Hemoglobin ABG Oxyhemoglobin 86.3 L 81.7 L ABG Sodium 132.9 L 131.0 L ABG Potassium ABG Chloride ABG Glucose 189 H 161 H Carboxyhemoglobin 0.4 L Sodium Potassium Chloride Carbon Dioxide BUN Creatinine Glucose POC Glucose Lactic Acid 3.80 H* Calcium Magnesium Ferritin AST ALT Lactate Dehydrogenase Total Creatine Kinase C-Reactive Protein Total Protein Albumin Triglycerides Arterial Blood Glucose 189 H 161 H Arterial Blood Ionized Calcium 4.3 L 4.2 L Urine Creatinine Urine Chloride Vancomycin Trough Coronavirus (PCR) 06/18/20 06/18/20 06/18/20 05:39 05:39 05:39 WBC 26.2 H RBC Hgb Hct RDW Lymph % (Auto) Lymph # (Auto) Dickenson # (Auto) Seg Neuts % (Manual) 90.0 H Lymphocytes % (Manual) 5.0 L Nucleated RBC % Seg Neutrophils # Seg Neutrophils # Man 23.6 H Lymphocytes # (Manual) Monocytes # (Manual) 1.3 H PT INR APTT D-Dimer Heparin Anti-Xa Level ABG pH POC ABG pCO2 POC ABG pO2 ABG Hemoglobin ABG Oxyhemoglobin ABG Sodium ABG Potassium ABG Chloride ABG Glucose Carboxyhemoglobin Sodium 135 L Potassium Chloride 97.5 L Carbon Dioxide 21 L BUN 39 H Creatinine 1.7 H D Glucose 168 H POC Glucose Lactic Acid 3.40 H* Calcium 7.2 L Magnesium Ferritin AST ALT Lactate Dehydrogenase Total Creatine Kinase C-Reactive Protein Total Protein Albumin Triglycerides Arterial Blood Glucose Arterial Blood Ionized Calcium Urine Creatinine Urine Chloride Vancomycin Trough Coronavirus (PCR) 06/18/20 06/18/20 06/18/20 07:24 09:00 10:10 WBC RBC Hgb Hct RDW Lymph % (Auto) Lymph # (Auto) Dickenson # (Auto) Seg Neuts % (Manual) Lymphocytes % (Manual) Nucleated RBC % Seg Neutrophils # Seg Neutrophils # Man Lymphocytes # (Manual) Monocytes # (Manual) PT INR APTT D-Dimer Heparin Anti-Xa Level ABG pH POC ABG pCO2 POC ABG pO2 ABG Hemoglobin ABG Oxyhemoglobin ABG Sodium ABG Potassium ABG Chloride ABG Glucose Carboxyhemoglobin Sodium Potassium Chloride Carbon Dioxide BUN Creatinine Glucose POC Glucose Lactic Acid 2.90 H* 3.20 H* Calcium Magnesium Ferritin AST ALT Lactate Dehydrogenase Total Creatine Kinase C-Reactive Protein Total Protein Albumin Triglycerides Arterial Blood Glucose Arterial Blood Ionized Calcium Urine Creatinine Urine Chloride Vancomycin Trough Coronavirus (PCR) Positive A 06/18/20 06/18/20 06/18/20 11:58 14:43 15:00 WBC RBC Hgb Hct RDW Lymph % (Auto) Lymph # (Auto) Dickenson # (Auto) Seg Neuts % (Manual) Lymphocytes % (Manual) Nucleated RBC % Seg Neutrophils # Seg Neutrophils # Man Lymphocytes # (Manual) Monocytes # (Manual) PT INR APTT D-Dimer Heparin Anti-Xa Level ABG pH 7.303 L POC ABG pCO2 POC ABG pO2 82.3 L ABG Hemoglobin ABG Oxyhemoglobin ABG Sodium 135.3 L ABG Potassium ABG Chloride ABG Glucose 215 H Carboxyhemoglobin 0.3 L Sodium Potassium Chloride Carbon Dioxide BUN Creatinine Glucose POC Glucose 209 H Lactic Acid Calcium Magnesium Ferritin AST ALT Lactate Dehydrogenase Total Creatine Kinase C-Reactive Protein Total Protein Albumin Triglycerides Arterial Blood Glucose 215 H Arterial Blood Ionized Calcium 4.2 L Urine Creatinine 192.4 H Urine Chloride 31.1 L Vancomycin Trough Coronavirus (PCR) 06/18/20 06/18/20 06/18/20 17:16 19:44 20:33 WBC RBC Hgb Hct RDW Lymph % (Auto) Lymph # (Auto) Dickenson # (Auto) Seg Neuts % (Manual) Lymphocytes % (Manual) Nucleated RBC % Seg Neutrophils # Seg Neutrophils # Man Lymphocytes # (Manual) Monocytes # (Manual) PT INR APTT D-Dimer Heparin Anti-Xa Level ABG pH POC ABG pCO2 POC ABG pO2 ABG Hemoglobin ABG Oxyhemoglobin ABG Sodium ABG Potassium ABG Chloride ABG Glucose Carboxyhemoglobin Sodium Potassium Chloride Carbon Dioxide BUN Creatinine Glucose POC Glucose 182 H Lactic Acid 3.00 H* Calcium Magnesium 2.70 H Ferritin AST ALT Lactate Dehydrogenase Total Creatine Kinase C-Reactive Protein Total Protein Albumin Triglycerides Arterial Blood Glucose Arterial Blood Ionized Calcium Urine Creatinine Urine Chloride Vancomycin Trough Coronavirus (PCR) 06/18/20 06/19/20 06/19/20 23:43 04:00 04:00 WBC 31.6 H RBC Hgb Hct RDW Lymph % (Auto) Lymph # (Auto) Dickenson # (Auto) Seg Neuts % (Manual) 98.0 H Lymphocytes % (Manual) 0.5 L Nucleated RBC % Seg Neutrophils # Seg Neutrophils # Man 31.0 H Lymphocytes # (Manual) 0.2 L Monocytes # (Manual) PT INR APTT D-Dimer Heparin Anti-Xa Level ABG pH POC ABG pCO2 POC ABG pO2 ABG Hemoglobin ABG Oxyhemoglobin ABG Sodium ABG Potassium ABG Chloride ABG Glucose Carboxyhemoglobin Sodium Potassium Chloride Carbon Dioxide BUN 56 H Creatinine 1.6 H Glucose 176 H POC Glucose 149 H Lactic Acid Calcium 7.0 L Magnesium Ferritin AST 244 H ALT 159 H Lactate Dehydrogenase Total Creatine Kinase C-Reactive Protein Total Protein 4.9 L D Albumin 2.5 L Triglycerides Arterial Blood Glucose Arterial Blood Ionized Calcium Urine Creatinine Urine Chloride Vancomycin Trough Coronavirus (PCR) 06/19/20 06/19/20 06/19/20 04:00 05:44 11:42 WBC RBC Hgb Hct RDW Lymph % (Auto) Lymph # (Auto) Dickenson # (Auto) Seg Neuts % (Manual) Lymphocytes % (Manual) Nucleated RBC % Seg Neutrophils # Seg Neutrophils # Man Lymphocytes # (Manual) Monocytes # (Manual) PT INR APTT D-Dimer Heparin Anti-Xa Level ABG pH 7.265 L POC ABG pCO2 51.8 H POC ABG pO2 65.1 L ABG Hemoglobin ABG Oxyhemoglobin ABG Sodium ABG Potassium ABG Chloride ABG Glucose 184 H Carboxyhemoglobin Sodium Potassium Chloride Carbon Dioxide BUN Creatinine Glucose POC Glucose 156 H 191 H Lactic Acid Calcium Magnesium Ferritin AST ALT Lactate Dehydrogenase Total Creatine Kinase C-Reactive Protein Total Protein Albumin Triglycerides Arterial Blood Glucose 184 H Arterial Blood Ionized Calcium 4.3 L Urine Creatinine Urine Chloride Vancomycin Trough Coronavirus (PCR) 06/19/20 06/19/20 06/19/20 12:30 17:16 18:36 WBC RBC Hgb Hct RDW Lymph % (Auto) Lymph # (Auto) Dickenson # (Auto) Seg Neuts % (Manual) Lymphocytes % (Manual) Nucleated RBC % Seg Neutrophils # Seg Neutrophils # Man Lymphocytes # (Manual) Monocytes # (Manual) PT 16.4 H INR 1.32 H APTT D-Dimer Heparin Anti-Xa Level ABG pH 7.088 L POC ABG pCO2 78.1 H POC ABG pO2 208.3 H ABG Hemoglobin ABG Oxyhemoglobin 98.3 H ABG Sodium ABG Potassium 5.0 H ABG Chloride ABG Glucose 182 H Carboxyhemoglobin 0.4 L Sodium Potassium Chloride Carbon Dioxide BUN Creatinine Glucose POC Glucose 154 H Lactic Acid Calcium Magnesium Ferritin AST ALT Lactate Dehydrogenase Total Creatine Kinase C-Reactive Protein Total Protein Albumin Triglycerides Arterial Blood Glucose 182 H Arterial Blood Ionized Calcium 4.3 L Urine Creatinine Urine Chloride Vancomycin Trough Coronavirus (PCR) 06/19/20 06/20/20 06/20/20 23:32 03:00 05:19 WBC RBC Hgb Hct RDW Lymph % (Auto) Lymph # (Auto) Dickenson # (Auto) Seg Neuts % (Manual) Lymphocytes % (Manual) Nucleated RBC % Seg Neutrophils # Seg Neutrophils # Man Lymphocytes # (Manual) Monocytes # (Manual) PT INR APTT D-Dimer Heparin Anti-Xa Level 0.77 H ABG pH POC ABG pCO2 POC ABG pO2 ABG Hemoglobin ABG Oxyhemoglobin ABG Sodium ABG Potassium ABG Chloride ABG Glucose Carboxyhemoglobin Sodium Potassium Chloride Carbon Dioxide BUN Creatinine Glucose POC Glucose 201 H 190 H Lactic Acid Calcium Magnesium Ferritin AST ALT Lactate Dehydrogenase Total Creatine Kinase C-Reactive Protein Total Protein Albumin Triglycerides Arterial Blood Glucose Arterial Blood Ionized Calcium Urine Creatinine Urine Chloride Vancomycin Trough Coronavirus (PCR) 06/20/20 06/20/20 06/20/20 08:25 08:25 11:36 WBC RBC Hgb Hct RDW Lymph % (Auto) Lymph # (Auto) Dickenson # (Auto) Seg Neuts % (Manual) Lymphocytes % (Manual) Nucleated RBC % Seg Neutrophils # Seg Neutrophils # Man Lymphocytes # (Manual) Monocytes # (Manual) PT INR APTT D-Dimer Heparin Anti-Xa Level ABG pH POC ABG pCO2 POC ABG pO2 ABG Hemoglobin ABG Oxyhemoglobin ABG Sodium ABG Potassium ABG Chloride ABG Glucose Carboxyhemoglobin Sodium 135 L Potassium 5.4 H Chloride 109.2 H Carbon Dioxide 19 L BUN 68 H Creatinine 2.5 H D Glucose 201 H POC Glucose 184 H Lactic Acid Calcium 5.5 L* D Magnesium Ferritin AST 123 H ALT 86 H Lactate Dehydrogenase Total Creatine Kinase C-Reactive Protein Total Protein 4.6 L Albumin 1.5 L Triglycerides Arterial Blood Glucose Arterial Blood Ionized Calcium Urine Creatinine Urine Chloride Vancomycin Trough 22.7 H Coronavirus (PCR) 06/20/20 06/20/20 06/20/20 11:40 17:28 20:00 WBC RBC Hgb Hct RDW Lymph % (Auto) Lymph # (Auto) [place] # (Auto) Seg Neuts % (Manual) Lymphocytes % (Manual) Nucleated RBC % Seg Neutrophils # Seg Neutrophils # Man Lymphocytes # (Manual) Monocytes # (Manual) PT INR APTT D-Dimer Heparin Anti-Xa Level 0.89 H ABG pH 7.099 L POC ABG pCO2 61.1 H POC ABG pO2 ABG Hemoglobin ABG Oxyhemoglobin ABG Sodium ABG Potassium 5.0 H ABG Chloride 111.0 H ABG Glucose 200 H Carboxyhemoglobin 0.4 L Sodium Potassium Chloride Carbon Dioxide BUN Creatinine Glucose POC Glucose 165 H Lactic Acid Calcium Magnesium Ferritin AST ALT Lactate Dehydrogenase Total Creatine Kinase C-Reactive Protein Total Protein Albumin Triglycerides Arterial Blood Glucose 200 H Arterial Blood Ionized Calcium 4.2 L Urine Creatinine Urine Chloride Vancomycin Trough Coronavirus (PCR) 06/20/20 06/21/20 06/21/20 23:29 05:00 05:20 WBC RBC Hgb Hct RDW Lymph % (Auto) Lymph # (Auto) [place] # (Auto) Seg Neuts % (Manual) Lymphocytes % (Manual) Nucleated RBC % Seg Neutrophils # Seg Neutrophils # Man Lymphocytes # (Manual) Monocytes # (Manual) PT INR APTT D-Dimer Heparin Anti-Xa Level ABG pH POC ABG pCO2 POC ABG pO2 ABG Hemoglobin ABG Oxyhemoglobin ABG Sodium ABG Potassium ABG Chloride ABG Glucose Carboxyhemoglobin Sodium Potassium Chloride 112.0 H Carbon Dioxide 20 L BUN 92 H Creatinine 3.9 H D Glucose 214 H POC Glucose 145 H 191 H Lactic Acid Calcium 6.5 L D Magnesium Ferritin AST 98 H ALT 84 H Lactate Dehydrogenase Total Creatine Kinase C-Reactive Protein Total Protein 4.6 L Albumin 2.1 L Triglycerides 180 H Arterial Blood Glucose Arterial Blood Ionized Calcium Urine Creatinine Urine Chloride Vancomycin Trough Coronavirus (PCR) 06/21/20 06/21/20 06/21/20 08:56 11:12 12:43 WBC RBC Hgb Hct RDW Lymph % (Auto) Lymph # (Auto) [place] # (Auto) Seg Neuts % (Manual) Lymphocytes % (Manual) Nucleated RBC % Seg Neutrophils # Seg Neutrophils # Man Lymphocytes # (Manual) Monocytes # (Manual) PT INR APTT D-Dimer Heparin Anti-Xa Level 0.28 L ABG pH 7.184 L POC ABG pCO2 48.3 H POC ABG pO2 172.1 H ABG Hemoglobin ABG Oxyhemoglobin 98.7 H ABG Sodium ABG Potassium 4.9 H ABG Chloride 112.0 H ABG Glucose 196 H Carboxyhemoglobin 0.2 L Sodium Potassium Chloride Carbon Dioxide BUN Creatinine Glucose POC Glucose 177 H Lactic Acid Calcium Magnesium Ferritin AST ALT Lactate Dehydrogenase Total Creatine Kinase C-Reactive Protein Total Protein Albumin Triglycerides Arterial Blood Glucose 196 H Arterial Blood Ionized Calcium 4.1 L Urine Creatinine Urine Chloride Vancomycin Trough Coronavirus (PCR) 06/21/20 06/21/20 06/22/20 16:31 Unknown 00:12 WBC RBC Hgb Hct RDW Lymph % (Auto) Lymph # (Auto) [place] # (Auto) Seg Neuts % (Manual) Lymphocytes % (Manual) Nucleated RBC % Seg Neutrophils # Seg Neutrophils # Man Lymphocytes # (Manual) Monocytes # (Manual) PT INR APTT D-Dimer Heparin Anti-Xa Level 0.78 H ABG pH POC ABG pCO2 POC ABG pO2 ABG Hemoglobin ABG Oxyhemoglobin ABG Sodium ABG Potassium ABG Chloride ABG Glucose Carboxyhemoglobin Sodium Potassium Chloride Carbon Dioxide BUN Creatinine Glucose POC Glucose 150 H 173 H Lactic Acid Calcium Magnesium Ferritin AST ALT Lactate Dehydrogenase Total Creatine Kinase C-Reactive Protein Total Protein Albumin Triglycerides Arterial Blood Glucose Arterial Blood Ionized Calcium Urine Creatinine Urine Chloride Vancomycin Trough Coronavirus (PCR) 06/22/20 06/22/20 06/22/20 04:00 05:04 05:30 WBC 33.9 H RBC Hgb 11.7 L Hct 35.2 L RDW 15.8 H Lymph % (Auto) Lymph # (Auto) [place] # (Auto) Seg Neuts % (Manual) 93.0 H Lymphocytes % (Manual) 5.0 L Nucleated RBC % Seg Neutrophils # Seg Neutrophils # Man 31.5 H Lymphocytes # (Manual) Monocytes # (Manual) PT INR APTT D-Dimer Heparin Anti-Xa Level ABG pH 7.169 L POC ABG pCO2 POC ABG pO2 ABG Hemoglobin ABG Oxyhemoglobin ABG Sodium ABG Potassium 5.1 H ABG Chloride 112.0 H ABG Glucose 186 H Carboxyhemoglobin 0.3 L Sodium Potassium Chloride Carbon Dioxide BUN Creatinine Glucose POC Glucose 161 H Lactic Acid Calcium Magnesium Ferritin AST ALT Lactate Dehydrogenase Total Creatine Kinase C-Reactive Protein Total Protein Albumin Triglycerides Arterial Blood Glucose 186 H Arterial Blood Ionized Calcium 4.1 L Urine Creatinine Urine Chloride Vancomycin Trough Coronavirus (PCR) 06/22/20 06/22/20 06/22/20 05:30 11:39 13:27 WBC RBC Hgb Hct RDW Lymph % (Auto) Lymph # (Auto) [place] # (Auto) Seg Neuts % (Manual) Lymphocytes % (Manual) Nucleated RBC % Seg Neutrophils # Seg Neutrophils # Man Lymphocytes # (Manual) Monocytes # (Manual) PT INR APTT D-Dimer Heparin Anti-Xa Level ABG pH POC ABG pCO2 POC ABG pO2 ABG Hemoglobin ABG Oxyhemoglobin ABG Sodium ABG Potassium ABG Chloride ABG Glucose Carboxyhemoglobin Sodium Potassium 5.7 H Chloride 111.3 H Carbon Dioxide 18 L BUN 112 H Creatinine 5.0 H Glucose 173 H POC Glucose 172 H 176 H Lactic Acid Calcium 6.7 L Magnesium Ferritin AST ALT Lactate Dehydrogenase Total Creatine Kinase C-Reactive Protein Total Protein Albumin Triglycerides Arterial Blood Glucose Arterial Blood Ionized Calcium Urine Creatinine Urine Chloride Vancomycin Trough Coronavirus (PCR) 06/22/20 06/22/20 06/22/20 14:37 17:00 17:40 WBC RBC Hgb Hct RDW Lymph % (Auto) Lymph # (Auto) [place] # (Auto) Seg Neuts % (Manual) Lymphocytes % (Manual) Nucleated RBC % Seg Neutrophils # Seg Neutrophils # Man Lymphocytes # (Manual) Monocytes # (Manual) PT INR APTT D-Dimer Heparin Anti-Xa Level 1.32 H ABG pH POC ABG pCO2 POC ABG pO2 ABG Hemoglobin ABG Oxyhemoglobin ABG Sodium ABG Potassium ABG Chloride ABG Glucose Carboxyhemoglobin Sodium Potassium Chloride Carbon Dioxide BUN Creatinine Glucose POC Glucose 171 H Lactic Acid Calcium Magnesium Ferritin AST ALT Lactate Dehydrogenase Total Creatine Kinase C-Reactive Protein 5.30 H Total Protein Albumin Triglycerides Arterial Blood Glucose Arterial Blood Ionized Calcium Urine Creatinine Urine Chloride Vancomycin Trough Coronavirus (PCR) 06/22/20 06/23/20 06/23/20 23:36 02:13 02:41 WBC RBC Hgb Hct RDW Lymph % (Auto) Lymph # (Auto) [place] # (Auto) Seg Neuts % (Manual) Lymphocytes % (Manual) Nucleated RBC % Seg Neutrophils # Seg Neutrophils # Man Lymphocytes # (Manual) Monocytes # (Manual) PT INR APTT D-Dimer Heparin Anti-Xa Level 0.21 L ABG pH 7.318 L POC ABG pCO2 POC ABG pO2 157.5 H ABG Hemoglobin ABG Oxyhemoglobin ABG Sodium 135.6 L ABG Potassium 4.6 H ABG Chloride 110.0 H ABG Glucose 169 H Carboxyhemoglobin Sodium Potassium Chloride Carbon Dioxide BUN Creatinine Glucose POC Glucose 155 H Lactic Acid Calcium Magnesium Ferritin AST ALT Lactate Dehydrogenase Total Creatine Kinase C-Reactive Protein Total Protein Albumin Triglycerides Arterial Blood Glucose 169 H Arterial Blood Ionized Calcium Urine Creatinine Urine Chloride Vancomycin Trough Coronavirus (PCR) 06/23/20 06/23/20 06/23/20 04:00 04:00 05:24 WBC 27.4 H RBC Hgb 11.3 L Hct 33.8 L RDW Lymph % (Auto) Lymph # (Auto) [place] # (Auto) Seg Neuts % (Manual) 93.0 H Lymphocytes % (Manual) 1.0 L Nucleated RBC % 1.0 H Seg Neutrophils # Seg Neutrophils # Man 25.5 H Lymphocytes # (Manual) 0.3 L Monocytes # (Manual) 1.1 H PT INR APTT D-Dimer Heparin Anti-Xa Level ABG pH POC ABG pCO2 POC ABG pO2 ABG Hemoglobin ABG Oxyhemoglobin ABG Sodium ABG Potassium ABG Chloride ABG Glucose Carboxyhemoglobin Sodium Potassium Chloride 107.6 H Carbon Dioxide 20 L BUN 100 H Creatinine 4.7 H Glucose 168 H POC Glucose 151 H Lactic Acid Calcium Magnesium Ferritin AST ALT Lactate Dehydrogenase Total Creatine Kinase C-Reactive Protein Total Protein Albumin Triglycerides Arterial Blood Glucose Arterial Blood Ionized Calcium Urine Creatinine Urine Chloride Vancomycin Trough Coronavirus (PCR) 06/23/20 06/23/20 06/23/20 11:30 17:18 23:50 WBC RBC Hgb Hct RDW Lymph % (Auto) Lymph # (Auto) [place] # (Auto) Seg Neuts % (Manual) Lymphocytes % (Manual) Nucleated RBC % Seg Neutrophils # Seg Neutrophils # Man Lymphocytes # (Manual) Monocytes # (Manual) PT INR APTT D-Dimer Heparin Anti-Xa Level ABG pH POC ABG pCO2 POC ABG pO2 ABG Hemoglobin ABG Oxyhemoglobin ABG Sodium ABG Potassium ABG Chloride ABG Glucose Carboxyhemoglobin Sodium Potassium Chloride Carbon Dioxide BUN Creatinine Glucose POC Glucose 157 H 156 H 162 H Lactic Acid Calcium Magnesium Ferritin AST ALT Lactate Dehydrogenase Total Creatine Kinase C-Reactive Protein Total Protein Albumin Triglycerides Arterial Blood Glucose Arterial Blood Ionized Calcium Urine Creatinine Urine Chloride Vancomycin Trough Coronavirus (PCR) 06/24/20 06/24/20 06/24/20 04:41 05:57 06:30 WBC 34.3 H RBC Hgb 10.9 L Hct 32.6 L RDW Lymph % (Auto) 2.0 L Lymph # (Auto) 0.7 L [place] # (Auto) 1.2 H Seg Neuts % (Manual) 96.0 H Lymphocytes % (Manual) 3.0 L Nucleated RBC % Seg Neutrophils # 32.3 H Seg Neutrophils # Man 32.9 H Lymphocytes # (Manual) 1.0 L Monocytes # (Manual) PT INR APTT D-Dimer Heparin Anti-Xa Level ABG pH POC ABG pCO2 POC ABG pO2 71.1 L ABG Hemoglobin ABG Oxyhemoglobin 92.4 L ABG Sodium 115.6 L ABG Potassium ABG Chloride ABG Glucose 159 H Carboxyhemoglobin Sodium Potassium Chloride Carbon Dioxide BUN Creatinine Glucose POC Glucose 143 H Lactic Acid Calcium Magnesium Ferritin AST ALT Lactate Dehydrogenase Total Creatine Kinase C-Reactive Protein Total Protein Albumin Triglycerides Arterial Blood Glucose 159 H Arterial Blood Ionized Calcium 4.2 L Urine Creatinine Urine Chloride Vancomycin Trough Coronavirus (PCR) 06/24/20 06/24/20 06/24/20 07:03 09:37 11:56 WBC RBC Hgb Hct RDW Lymph % (Auto) Lymph # (Auto) [place] # (Auto) Seg Neuts % (Manual) Lymphocytes % (Manual) Nucleated RBC % Seg Neutrophils # Seg Neutrophils # Man Lymphocytes # (Manual) Monocytes # (Manual) PT INR APTT D-Dimer Heparin Anti-Xa Level 0.26 L ABG pH POC ABG pCO2 POC ABG pO2 ABG Hemoglobin ABG Oxyhemoglobin ABG Sodium ABG Potassium ABG Chloride ABG Glucose Carboxyhemoglobin Sodium Potassium 5.1 H Chloride Carbon Dioxide BUN 103 H Creatinine 5.0 H Glucose 163 H POC Glucose 149 H Lactic Acid Calcium 7.6 L Magnesium Ferritin AST ALT Lactate Dehydrogenase Total Creatine Kinase C-Reactive Protein Total Protein Albumin Triglycerides Arterial Blood Glucose Arterial Blood Ionized Calcium Urine Creatinine Urine Chloride Vancomycin Trough Coronavirus (PCR) 06/24/20 06/25/20 06/25/20 18:09 01:05 03:00 WBC RBC Hgb 10.6 L Hct 32.1 L RDW Lymph % (Auto) Lymph # (Auto) [place] # (Auto) Seg Neuts % (Manual) Lymphocytes % (Manual) Nucleated RBC % Seg Neutrophils # Seg Neutrophils # Man Lymphocytes # (Manual) Monocytes # (Manual) PT INR APTT D-Dimer Heparin Anti-Xa Level ABG pH POC ABG pCO2 POC ABG pO2 ABG Hemoglobin ABG Oxyhemoglobin ABG Sodium ABG Potassium ABG Chloride ABG Glucose Carboxyhemoglobin Sodium Potassium Chloride Carbon Dioxide BUN Creatinine Glucose POC Glucose 141 H 137 H Lactic Acid Calcium Magnesium Ferritin AST ALT Lactate Dehydrogenase Total Creatine Kinase C-Reactive Protein Total Protein Albumin Triglycerides Arterial Blood Glucose Arterial Blood Ionized Calcium Urine Creatinine Urine Chloride Vancomycin Trough Coronavirus (PCR) 06/25/20 06/25/20 06/25/20 03:48 05:17 12:08 WBC RBC Hgb Hct RDW Lymph % (Auto) Lymph # (Auto) [place] # (Auto) Seg Neuts % (Manual) Lymphocytes % (Manual) Nucleated RBC % Seg Neutrophils # Seg Neutrophils # Man Lymphocytes # (Manual) Monocytes # (Manual) PT INR APTT D-Dimer Heparin Anti-Xa Level ABG pH POC ABG pCO2 29.4 L POC ABG pO2 67.1 L ABG Hemoglobin 11.5 L ABG Oxyhemoglobin ABG Sodium 124.1 L ABG Potassium 4.6 H ABG Chloride ABG Glucose 159 H Carboxyhemoglobin Sodium Potassium Chloride Carbon Dioxide BUN Creatinine Glucose POC Glucose 149 H 150 H Lactic Acid Calcium Magnesium Ferritin AST ALT Lactate Dehydrogenase Total Creatine Kinase C-Reactive Protein Total Protein Albumin Triglycerides Arterial Blood Glucose 159 H Arterial Blood Ionized Calcium 4.2 L Urine Creatinine Urine Chloride Vancomycin Trough Coronavirus (PCR) 06/25/20 06/25/20 06/25/20 16:27 16:35 17:27 WBC RBC Hgb Hct RDW Lymph % (Auto) Lymph # (Auto) [place] # (Auto) Seg Neuts % (Manual) Lymphocytes % (Manual) Nucleated RBC % Seg Neutrophils # Seg Neutrophils # Man Lymphocytes # (Manual) Monocytes # (Manual) PT INR APTT D-Dimer Heparin Anti-Xa Level < 0.10 L ABG pH POC ABG pCO2 POC ABG pO2 ABG Hemoglobin ABG Oxyhemoglobin ABG Sodium ABG Potassium ABG Chloride ABG Glucose Carboxyhemoglobin Sodium Potassium Chloride Carbon Dioxide BUN Creatinine Glucose POC Glucose 143 H 156 H Lactic Acid Calcium Magnesium Ferritin AST ALT Lactate Dehydrogenase Total Creatine Kinase C-Reactive Protein Total Protein Albumin Triglycerides Arterial Blood Glucose Arterial Blood Ionized Calcium Urine Creatinine Urine Chloride Vancomycin Trough Coronavirus (PCR) 06/25/20 06/25/20 06/25/20 20:00 20:55 23:10 WBC 32.7 H RBC 3.06 L Hgb 9.0 L 9.5 L Hct 26.7 L 28.6 L RDW Lymph % (Auto) Lymph # (Auto) [place] # (Auto) Seg Neuts % (Manual) Lymphocytes % (Manual) 2.0 L Nucleated RBC % Seg Neutrophils # Seg Neutrophils # Man 30.7 H Lymphocytes # (Manual) 0.7 L Monocytes # (Manual) 1.3 H PT 17.7 H INR 1.47 H APTT 65.8 H* D-Dimer Heparin Anti-Xa Level ABG pH POC ABG pCO2 POC ABG pO2 ABG Hemoglobin ABG Oxyhemoglobin ABG Sodium ABG Potassium ABG Chloride ABG Glucose Carboxyhemoglobin Sodium Potassium Chloride Carbon Dioxide BUN Creatinine Glucose POC Glucose Lactic Acid Calcium Magnesium Ferritin AST ALT Lactate Dehydrogenase Total Creatine Kinase C-Reactive Protein Total Protein Albumin Triglycerides Arterial Blood Glucose Arterial Blood Ionized Calcium Urine Creatinine Urine Chloride Vancomycin Trough Coronavirus (PCR) 06/25/20 06/26/20 06/26/20 23:14 01:30 03:25 WBC RBC Hgb Hct RDW Lymph % (Auto) Lymph # (Auto) [place] # (Auto) Seg Neuts % (Manual) Lymphocytes % (Manual) Nucleated RBC % Seg Neutrophils # Seg Neutrophils # Man Lymphocytes # (Manual) Monocytes # (Manual) PT INR APTT D-Dimer Heparin Anti-Xa Level < 0.10 L ABG pH POC ABG pCO2 POC ABG pO2 ABG Hemoglobin 11.8 L ABG Oxyhemoglobin ABG Sodium 127.1 L ABG Potassium 5.4 H ABG Chloride ABG Glucose 155 H Carboxyhemoglobin 0.3 L Sodium Potassium Chloride Carbon Dioxide BUN Creatinine Glucose POC Glucose 148 H Lactic Acid Calcium Magnesium Ferritin AST ALT Lactate Dehydrogenase Total Creatine Kinase C-Reactive Protein Total Protein Albumin Triglycerides Arterial Blood Glucose 155 H Arterial Blood Ionized Calcium 4.2 L Urine Creatinine Urine Chloride Vancomycin Trough Coronavirus (PCR) 06/26/20 06/26/20 06/26/20 03:59 05:14 05:47 WBC 36.5 H RBC 3.26 L Hgb 9.7 L Hct 28.2 L RDW Lymph % (Auto) Lymph # (Auto) [place] # (Auto) Seg Neuts % (Manual) 92.0 H Lymphocytes % (Manual) 4.0 L Nucleated RBC % Seg Neutrophils # Seg Neutrophils # Man 33.6 H Lymphocytes # (Manual) Monocytes # (Manual) PT INR APTT D-Dimer Heparin Anti-Xa Level ABG pH POC ABG pCO2 POC ABG pO2 ABG Hemoglobin ABG Oxyhemoglobin ABG Sodium ABG Potassium ABG Chloride ABG Glucose Carboxyhemoglobin Sodium Potassium 5.9 H Chloride Carbon Dioxide 20 L BUN 144 H Creatinine 6.4 H Glucose 149 H POC Glucose 128 H Lactic Acid Calcium 7.6 L Magnesium Ferritin AST ALT Lactate Dehydrogenase Total Creatine Kinase C-Reactive Protein Total Protein Albumin Triglycerides Arterial Blood Glucose Arterial Blood Ionized Calcium Urine Creatinine Urine Chloride Vancomycin Trough Coronavirus (PCR) 06/26/20 06/26/20 06/26/20 05:47 12:47 17:42 WBC RBC Hgb Hct RDW Lymph % (Auto) Lymph # (Auto) [place] # (Auto) Seg Neuts % (Manual) Lymphocytes % (Manual) Nucleated RBC % Seg Neutrophils # Seg Neutrophils # Man Lymphocytes # (Manual) Monocytes # (Manual) PT 17.4 H INR 1.44 H APTT D-Dimer Heparin Anti-Xa Level ABG pH POC ABG pCO2 POC ABG pO2 ABG Hemoglobin ABG Oxyhemoglobin ABG Sodium ABG Potassium ABG Chloride ABG Glucose Carboxyhemoglobin Sodium Potassium Chloride Carbon Dioxide BUN Creatinine Glucose POC Glucose 124 H 127 H Lactic Acid Calcium Magnesium Ferritin AST ALT Lactate Dehydrogenase Total Creatine Kinase C-Reactive Protein Total Protein Albumin Triglycerides Arterial Blood Glucose Arterial Blood Ionized Calcium Urine Creatinine Urine Chloride Vancomycin Trough Coronavirus (PCR) 06/26/20 06/27/20 06/27/20 23:30 03:32 04:00 WBC RBC Hgb 8.7 L Hct 26.4 L RDW Lymph % (Auto) Lymph # (Auto) [place] # (Auto) Seg Neuts % (Manual) Lymphocytes % (Manual) Nucleated RBC % Seg Neutrophils # Seg Neutrophils # Man Lymphocytes # (Manual) Monocytes # (Manual) PT INR APTT D-Dimer Heparin Anti-Xa Level ABG pH 7.298 L POC ABG pCO2 POC ABG pO2 ABG Hemoglobin 9.6 L ABG Oxyhemoglobin ABG Sodium 124.4 L ABG Potassium 6.6 H ABG Chloride ABG Glucose 136 H Carboxyhemoglobin Sodium Potassium Chloride Carbon Dioxide BUN Creatinine Glucose POC Glucose 123 H Lactic Acid Calcium Magnesium Ferritin AST ALT Lactate Dehydrogenase Total Creatine Kinase C-Reactive Protein Total Protein Albumin Triglycerides Arterial Blood Glucose 136 H Arterial Blood Ionized Calcium 4.1 L Urine Creatinine Urine Chloride Vancomycin Trough Coronavirus (PCR) 06/27/20 06/27/20 06/27/20 05:26 10:14 11:58 WBC RBC Hgb Hct RDW Lymph % (Auto) Lymph # (Auto) [place] # (Auto) Seg Neuts % (Manual) Lymphocytes % (Manual) Nucleated RBC % Seg Neutrophils # Seg Neutrophils # Man Lymphocytes # (Manual) Monocytes # (Manual) PT INR APTT D-Dimer Heparin Anti-Xa Level ABG pH POC ABG pCO2 POC ABG pO2 ABG Hemoglobin ABG Oxyhemoglobin ABG Sodium ABG Potassium ABG Chloride ABG Glucose Carboxyhemoglobin Sodium 136 L Potassium 7.0 H* Chloride 97.8 L Carbon Dioxide BUN 172 H Creatinine 7.4 H Glucose 129 H POC Glucose 124 H 115 H Lactic Acid Calcium 7.6 L Magnesium Ferritin AST ALT Lactate Dehydrogenase Total Creatine Kinase C-Reactive Protein Total Protein Albumin Triglycerides Arterial Blood Glucose Arterial Blood Ionized Calcium Urine Creatinine Urine Chloride Vancomycin Trough Coronavirus (PCR) 06/27/20 06/27/20 06/27/20 17:32 18:30 23:24 WBC RBC Hgb Hct RDW Lymph % (Auto) Lymph # (Auto) [place] # (Auto) Seg Neuts % (Manual) Lymphocytes % (Manual) Nucleated RBC % Seg Neutrophils # Seg Neutrophils # Man Lymphocytes # (Manual) Monocytes # (Manual) PT INR APTT D-Dimer Heparin Anti-Xa Level ABG pH POC ABG pCO2 POC ABG pO2 ABG Hemoglobin ABG Oxyhemoglobin ABG Sodium ABG Potassium ABG Chloride ABG Glucose Carboxyhemoglobin Sodium Potassium 7.3 H* Chloride Carbon Dioxide BUN Creatinine Glucose POC Glucose 122 H 116 H Lactic Acid Calcium Magnesium Ferritin AST ALT Lactate Dehydrogenase Total Creatine Kinase C-Reactive Protein Total Protein Albumin Triglycerides Arterial Blood Glucose Arterial Blood Ionized Calcium Urine Creatinine Urine Chloride Vancomycin Trough Coronavirus (PCR) 06/28/20 06/28/20 06/28/20 00:00 02:16 05:37 WBC RBC Hgb Hct RDW Lymph % (Auto) Lymph # (Auto) [place] # (Auto) Seg Neuts % (Manual) Lymphocytes % (Manual) Nucleated RBC % Seg Neutrophils # Seg Neutrophils # Man Lymphocytes # (Manual) Monocytes # (Manual) PT INR APTT D-Dimer Heparin Anti-Xa Level ABG pH POC ABG pCO2 POC ABG pO2 79.0 L ABG Hemoglobin 11.7 L ABG Oxyhemoglobin ABG Sodium 128.1 L ABG Potassium 6.6 H ABG Chloride ABG Glucose 124 H Carboxyhemoglobin Sodium Potassium 7.3 H* Chloride Carbon Dioxide BUN Creatinine Glucose POC Glucose 115 H Lactic Acid Calcium Magnesium Ferritin AST ALT Lactate Dehydrogenase Total Creatine Kinase C-Reactive Protein Total Protein Albumin Triglycerides Arterial Blood Glucose 124 H Arterial Blood Ionized Calcium 4.2 L Urine Creatinine Urine Chloride Vancomycin Trough Coronavirus (PCR) 06/28/20 06/28/20 10:03 10:03 WBC 33.6 H RBC 3.03 L Hgb 8.9 L Hct 27.0 L RDW Lymph % (Auto) Lymph # (Auto) [place] # (Auto) Seg Neuts % (Manual) Lymphocytes % (Manual) Nucleated RBC % Seg Neutrophils # Seg Neutrophils # Man Lymphocytes # (Manual) Monocytes # (Manual) PT INR APTT D-Dimer Heparin Anti-Xa Level ABG pH POC ABG pCO2 POC ABG pO2 ABG Hemoglobin ABG Oxyhemoglobin ABG Sodium ABG Potassium ABG Chloride ABG Glucose Carboxyhemoglobin Sodium 136 L Potassium 6.5 H* Chloride Carbon Dioxide 20 L BUN 129 H Creatinine 5.8 H Glucose 113 H POC Glucose Lactic Acid Calcium 7.6 L Magnesium Ferritin AST ALT Lactate Dehydrogenase Total Creatine Kinase C-Reactive Protein Total Protein Albumin Triglycerides Arterial Blood Glucose Arterial Blood Ionized Calcium Urine Creatinine Urine Chloride Vancomycin Trough Coronavirus (PCR) Chest x-ray: other (none today) Allied health notes reviewed: nursing
[2020-06-28] MEDS: QUEtiapine 200 MG TAB PO SCH ×2 (13:22→21:09)
--- NOTE | 2020-06-28 13:54 | Progress Note ---
Assessment and Plan Telemetry reviewed: Afib, HR 110-130. Convert PO Amiodarone to Amiodarone IV and initiate discontinue lopressor. Continue Heparin gtt. Electrolyte management per nephrology. Pt was seen in conjunction with Dr Sumanth Santos, who agrees with this assessment and plan of care. - Patient Problems (1) Acute respiratory failure with hypoxia Current Visit: Yes Status: Acute (2) Sepsis Current Visit: Yes Status: Acute Qualifiers: Severe sepsis acute organ dysfunction type: acute respiratory failure Severe sepsis shock status: with septic shock (3) Atrial fibrillation with rapid ventricular response Current Visit: Yes Status: Acute (4) Acute renal failure Current Visit: Yes Status: Acute (5) Pneumonia due to COVID-19 virus Current Visit: Yes Status: Acute (6) Elevated LFTs Current Visit: Yes Status: Acute (7) Hyperkalemia Current Visit: Yes Status: Acute Subjective Date of service: 06/28/20 Principal diagnosis: ARF/Septic Shock/COVID-19 PNA, AF with RVR Interval history: Pt is lying supine, sedated, remains intubated. Telemetry reviewed: Afib HR 110-130. Objective Vital Signs Temp Pulse Pulse Pulse Resp Resp BP 06/28/20 13:23 113 H 145/62 06/28/20 13:01 112 H 29 H 139/80 06/28/20 12:45 107 H 25 H 126/78 06/28/20 12:31 110 H 20 123/78 06/28/20 12:15 112 H 20 106/76 06/28/20 12:00 111 H 30 H 111/78 06/28/20 11:47 113 H 93 H 24 103/53 06/28/20 11:45 101 H 30 H 103/53 06/28/20 11:30 111 H 28 H 101/59 06/28/20 11:27 110 H 30 H 06/28/20 11:15 99 H 25 H 121/67 06/28/20 11:01 100 H 30 H 120/58 06/28/20 10:45 108 H 22 116/54 06/28/20 10:31 99 H 30 H 116/54 06/28/20 10:15 117 H 30 H 129/70 06/28/20 10:01 112 H 19 139/73 06/28/20 09:45 105 H 22 122/67 06/28/20 09:42 120 H 121/76 06/28/20 09:30 113 H 25 H 121/76 06/28/20 09:15 116 H 30 H 121/67 06/28/20 09:00 102 H 27 H 117/63 06/28/20 08:45 106 H 24 104/50 06/28/20 08:30 102 H 21 83/44 06/28/20 08:15 100 H 30 H 88/51 06/28/20 08:00 99.1 F 122 H 118 H 25 H 83/54 06/28/20 07:45 110 H 23 90/56 06/28/20 07:30 119 H 24 94/54 06/28/20 07:15 125 H 29 H 115/58 06/28/20 07:10 129 H 24 112/55 06/28/20 07:00 103 H 26 H 125/61 06/28/20 06:50 122 H 30 H 119/63 06/28/20 06:40 116 H 22 122/64 06/28/20 06:30 115 H 30 H 103/54 06/28/20 06:29 98.8 F 109 H 26 H 106/58 06/28/20 06:20 110 H 24 104/59 06/28/20 06:15 114 H 96/61 06/28/20 06:11 127 H 24 109/59 06/28/20 06:00 128 H 27 H 112/67 06/28/20 05:50 118 H 29 H 99/60 06/28/20 05:45 120 H 93/64 06/28/20 05:41 137 H 15 112/64 06/28/20 05:31 126 H 25 H 111/51 06/28/20 05:30 108 H 111/51 06/28/20 05:25 108 H 115/60 06/28/20 05:20 116 H 23 120/54 06/28/20 05:15 97 H 113/45 06/28/20 05:10 113 H 27 H 107/52 06/28/20 05:00 113 H 21 112/38 06/28/20 04:50 110 H 24 93/57 06/28/20 04:45 118 H 109/65 06/28/20 04:40 127 H 28 H 86/46 06/28/20 04:31 128 H 30 H 98/51 06/28/20 04:30 115 H 98/51 06/28/20 04:21 130 H 17 118/63 06/28/20 04:15 115 H 118/63 06/28/20 04:11 111 H 24 128/58 06/28/20 04:01 124 H 20 128/58 06/28/20 04:00 112 H 116 H 30 H 128/58 06/28/20 03:56 98.1 F 06/28/20 03:51 121 H 17 138/62 06/28/20 03:45 114 H 138/62 06/28/20 03:41 111 H 21 144/64 06/28/20 03:30 110 H 19 144/64 06/28/20 03:21 104 H 28 H 128/71 06/28/20 03:15 113 H 128/76 06/28/20 03:11 100 H 28 H 124/70 06/28/20 03:10 98.9 F 103 H 28 H 124/70 06/28/20 03:01 103 H 22 124/70 06/28/20 02:51 104 H 28 H 121/65 06/28/20 02:41 96 H 32 H 104/46 06/28/20 02:30 90 30 H 104/46 06/28/20 02:21 93 H 30 H 109/47 06/28/20 02:11 89 30 H 105/50 06/28/20 02:00 101 H 30 H 94/54 06/28/20 01:51 94 H 30 H 105/50 06/28/20 01:41 86 30 H 100/50 06/28/20 01:30 103 H 30 H 99/47 06/28/20 01:21 99 H 30 H 100/50 06/28/20 01:11 109 H 30 H 110/55 06/28/20 01:00 113 H 30 H 110/55 06/28/20 00:51 99 H 30 H 109/52 06/28/20 00:41 111 H 30 H 106/56 06/28/20 00:30 107 H 30 H 106/56 06/28/20 00:26 98 H 132/72 06/28/20 00:21 102 H 30 H 132/72 06/28/20 00:11 102 H 30 H 114/61 06/28/20 00:01 111 H 30 H 114/61 06/28/20 00:00 120 H 120 H 30 H 06/27/20 23:51 101 H 30 H 131/68 06/27/20 23:48 99.0 F 06/27/20 23:41 108 H 31 H 137/76 06/27/20 23:30 115 H 21 137/76 06/27/20 23:21 115 H 25 H 155/73 06/27/20 23:11 100 H 30 H 168/73 06/27/20 23:09 114 H 29 H 168/73 06/27/20 23:01 109 H 27 H 168/73 06/27/20 22:51 113 H 23 159/75 06/27/20 22:41 121 H 27 H 151/74 06/27/20 22:31 98 H 24 151/74 06/27/20 22:21 116 H 26 H 164/80 06/27/20 22:11 115 H 18 149/74 06/27/20 22:01 126 H 22 149/74 06/27/20 21:51 105 H 22 162/81 06/27/20 21:41 113 H 29 H 145/84 06/27/20 21:31 105 H 24 145/84 06/27/20 21:28 104 H 06/27/20 21:21 100 H 24 134/70 06/27/20 21:11 88 30 H 132/77 06/27/20 21:01 95 H 30 H 132/77 06/27/20 20:58 95 H 132/77 06/27/20 20:51 97 H 25 H 110/63 06/27/20 20:41 95 H 30 H 110/59 06/27/20 20:30 102 H 30 H 110/59 06/27/20 20:21 99 H 30 H 104/50 06/27/20 20:10 107 H 30 H 110/49 06/27/20 20:00 112 H 111 H 30 H 110/49 06/27/20 19:58 99.0 F 06/27/20 19:50 105 H 30 H 115/56 06/27/20 19:40 109 H 30 H 113/58 06/27/20 19:30 111 H 30 H 146/61 06/27/20 19:20 115 H 30 H 146/61 06/27/20 19:10 114 H 27 H 138/75 06/27/20 19:00 126 H 26 H 157/67 06/27/20 18:50 110 H 27 H 157/67 06/27/20 18:40 117 H 30 H 143/67 06/27/20 18:30 115 H 28 H 143/67 06/27/20 18:20 110 H 26 H 157/74 06/27/20 18:10 124 H 30 H 143/70 06/27/20 18:00 121 H 21 169/63 06/27/20 17:58 124 H 169/63 06/27/20 17:50 123 H 28 H 169/63 06/27/20 17:40 116 H 21 168/74 06/27/20 17:30 120 H 21 167/82 06/27/20 17:20 122 H 17 163/77 06/27/20 17:10 117 H 17 168/74 06/27/20 17:00 105 H 27 H 168/74 06/27/20 16:50 114 H 21 159/74 06/27/20 16:40 104 H 22 150/77 06/27/20 16:30 120 H 21 150/77 06/27/20 16:20 104 H 22 155/76 06/27/20 16:10 98 H 25 H 102/51 06/27/20 16:00 95 H 30 H 102/51 06/27/20 15:56 104 H 95/53 06/27/20 15:55 98.6 F 06/27/20 15:50 102 H 30 H 95/53 06/27/20 15:40 113 H 30 H 103/47 06/27/20 15:30 103 H 30 H 103/47 06/27/20 15:20 109 H 30 H 103/53 06/27/20 15:10 100 H 31 H 104/54 06/27/20 15:00 106 H 30 H 104/54 06/27/20 14:50 115 H 30 H 111/51 06/27/20 14:40 104 H 30 H 109/58 06/27/20 14:30 108 H 30 H 109/58 06/27/20 14:20 108 H 30 H 104/54 06/27/20 14:10 103 H 30 H 99/54 06/27/20 14:00 104 H 30 H 99/54 Pulse Ox Pulse Ox 06/28/20 13:23 06/28/20 13:01 96 06/28/20 12:45 95 06/28/20 12:31 96 06/28/20 12:15 96 06/28/20 12:00 95 06/28/20 11:47 94 06/28/20 11:45 94 06/28/20 11:30 93 06/28/20 11:27 93 06/28/20 11:15 94 06/28/20 11:01 94 06/28/20 10:45 95 06/28/20 10:31 94 06/28/20 10:15 94 06/28/20 10:01 95 06/28/20 09:45 95 06/28/20 09:42 06/28/20 09:30 95 06/28/20 09:15 95 06/28/20 09:00 96 06/28/20 08:45 95 06/28/20 08:30 92 06/28/20 08:15 93 06/28/20 08:00 93 06/28/20 07:45 93 06/28/20 07:30 92 06/28/20 07:15 94 06/28/20 07:10 93 06/28/20 07:00 94 06/28/20 06:50 94 06/28/20 06:40 93 06/28/20 06:30 93 06/28/20 06:29 93 06/28/20 06:20 92 06/28/20 06:15 06/28/20 06:11 90 06/28/20 06:00 91 06/28/20 05:50 92 06/28/20 05:45 06/28/20 05:41 88 06/28/20 05:31 89 06/28/20 05:30 06/28/20 05:25 93 06/28/20 05:20 93 06/28/20 05:15 06/28/20 05:10 92 06/28/20 05:00 91 06/28/20 04:50 91 06/28/20 04:45 06/28/20 04:40 89 06/28/20 04:31 87 06/28/20 04:30 06/28/20 04:21 87 06/28/20 04:15 06/28/20 04:11 91 06/28/20 04:01 91 06/28/20 04:00 90 06/28/20 03:56 06/28/20 03:51 89 06/28/20 03:45 06/28/20 03:41 91 06/28/20 03:30 93 06/28/20 03:21 93 06/28/20 03:15 06/28/20 03:11 95 06/28/20 03:10 94 06/28/20 03:01 95 06/28/20 02:51 95 06/28/20 02:41 95 06/28/20 02:30 94 06/28/20 02:21 94 06/28/20 02:11 94 06/28/20 02:00 94 06/28/20 01:51 94 06/28/20 01:41 93 06/28/20 01:30 94 06/28/20 01:21 93 06/28/20 01:11 95 06/28/20 01:00 93 06/28/20 00:51 92 06/28/20 00:41 93 06/28/20 00:30 90 06/28/20 00:26 92 06/28/20 00:21 93 06/28/20 00:11 94 06/28/20 00:01 93 06/28/20 00:00 90 06/27/20 23:51 94 06/27/20 23:48 06/27/20 23:41 94 06/27/20 23:30 94 06/27/20 23:21 94 06/27/20 23:11 94 06/27/20 23:09 94 06/27/20 23:01 94 06/27/20 22:51 94 06/27/20 22:41 94 06/27/20 22:31 94 06/27/20 22:21 93 06/27/20 22:11 94 06/27/20 22:01 95 06/27/20 21:51 95 06/27/20 21:41 96 06/27/20 21:31 95 06/27/20 21:28 06/27/20 21:21 95 06/27/20 21:11 95 06/27/20 21:01 95 06/27/20 20:58 95 06/27/20 20:51 98 06/27/20 20:41 94 06/27/20 20:30 94 06/27/20 20:21 93 06/27/20 20:10 93 06/27/20 20:00 93 06/27/20 19:58 06/27/20 19:50 93 06/27/20 19:40 94 06/27/20 19:30 93 06/27/20 19:20 95 06/27/20 19:10 95 06/27/20 19:00 95 06/27/20 18:50 94 06/27/20 18:40 94 06/27/20 18:30 94 06/27/20 18:20 94 06/27/20 18:10 94 06/27/20 18:00 94 06/27/20 17:58 06/27/20 17:50 94 06/27/20 17:40 94 06/27/20 17:30 95 06/27/20 17:20 95 06/27/20 17:10 95 06/27/20 17:00 95 06/27/20 16:50 96 06/27/20 16:40 96 06/27/20 16:30 96 06/27/20 16:20 96 06/27/20 16:10 96 06/27/20 16:00 95 06/27/20 15:56 96 06/27/20 15:55 06/27/20 15:50 95 06/27/20 15:40 96 06/27/20 15:30 95 06/27/20 15:20 95 06/27/20 15:10 95 06/27/20 15:00 94 06/27/20 14:50 95 06/27/20 14:40 95 06/27/20 14:30 95 06/27/20 14:20 96 06/27/20 14:10 96 06/27/20 14:00 96 - Physical Examination General: Other (intubated, lethargic) Neck: Positive: neck supple Cardiac: Positive: Reg Rate and Rhythm, S1/S2 Lungs: Positive: Decreased Breath Sounds Neuro: Positive: Other (intubated, lethargic) Abdomen: Positive: Soft Skin: Negative: Rash, Wound Extremities: Present: upper extr. pulses, lower extr. pulses - Labs and Meds CBC 06/28/20 Range/Units 10:03 WBC 33.6 H (4.5-11.0) K/mm3 RBC 3.03 L (3.65-5.03) M/mm3 Hgb 8.9 L (11.8-15.2) gm/dl Hct 27.0 L (35.5-45.6) % Plt Count 167 (140-440) K/mm3 Comprehensive Metabolic Panel 06/27/20 06/28/20 06/28/20 Range/Units 18:30 00:00 10:03 Sodium 136 L (137-145) mmol/L Potassium 7.3 H* 7.3 H* 6.5 H* (3.6-5.0) mmol/L Chloride 98.7 (98-107) mmol/L Carbon Dioxide 20 L (22-30) mmol/L BUN 129 H (9-20) mg/dL Creatinine 5.8 H (0.8-1.3) mg/dL Glucose 113 H (75-100) mg/dL Calcium 7.6 L (8.4-10.2) mg/dL - Imaging and Cardiology EKG: report reviewed, image reviewed - EKG Sinus rhythms and dysrhythmias: sinus tachycardia - Allied health notes Allied health notes reviewed: nursing
--- NOTE | 2020-06-28 15:49 | Progress Note ---
Assessment and Plan Cultures: SARS CoV2 PCR: Positive as outpatient Blood culture: no growth Sputum culture: no growth A/P: 59-year-old male with obesity, obesity hypoventilation syndrome: #Severe sepsis with septic shock: likely secondary to critical COVID-19 pneumonia. Blood cultures so far negative. ?Bacterial pneumonia component, but sputum culture with no growth. On empiric abx, steroids. Completed Remdesivir. #Critical COVID-19 pneumonia: Procalcitonin also high, treating with empiric antibiotics. #Acute hypoxic respiratory failure: on the vent #Transaminitis: Likely secondary to COVID-19. #GIRISH: creatinine elevated. Recs: -Continue steroids for at least total 10 days -s/p Remdesivir -Continue empiric IV Cefepime x 7 days given ongoing pressor use -prophylactic anticoagulation based on d-dimer per hospital protocol -trend ferritin, LDH, d-dimer, CRP every 2-3 days for risk stratification and to assess disease progression -extremely poor prognosis Юлия Finney MD [facility] O: [phone] F: [phone] Subjective Date of service: 06/28/20 Principal diagnosis: ARF/Septic Shock/COVID-19 PNA, AF with RVR Interval history: Afebrile, whtie count elevated at 33.6 which is approximately stable. Objective - Exam Narrative Exam: Physical exam deferred due to PPE conservation strategy. Please refer to primary team's note. - Constitutional Vitals: Vital Signs Temp Pulse Resp BP Pulse Ox 99.1 F 113 H 29 H 145/62 96 06/28/20 08:00 06/28/20 13:23 06/28/20 13:01 06/28/20 13:23 06/28/20 13:01 Temperature -Last 24 Hours Temperature 99.1 F Temperature 98.8 F Temperature 98.1 F Temperature 98.9 F Temperature 99.0 F Temperature 99.0 F Temperature 98.6 F - Labs CBC & Chem 7: 06/28/20 10:03 06/28/20 Unknown Labs: Abnormal lab results 06/27/20 06/27/20 06/27/20 Range/Units 17:32 18:30 23:24 WBC (4.5-11.0) K/mm3 RBC (3.65-5.03) M/mm3 Hgb (11.8-15.2) gm/dl Hct (35.5-45.6) % POC ABG pO2 (83-108) mmHg ABG Hemoglobin (12.0-17.5) ABG Sodium (136.0-145.0) mmol/L ABG Potassium (3.40-4.50) mmol/L ABG Glucose (65-95) mg/dL Sodium (137-145) mmol/L Potassium 7.3 H* (3.6-5.0) mmol/L Carbon Dioxide (22-30) mmol/L BUN (9-20) mg/dL Creatinine (0.8-1.3) mg/dL Glucose (75-100) mg/dL POC Glucose 122 H 116 H (70-105) mg/dL Calcium (8.4-10.2) mg/dL Arterial Blood Glucose (65-95) mg/dL Arterial Blood Ionized Calcium (4.6-5.3) mg/dL 06/28/20 06/28/20 06/28/20 Range/Units 00:00 02:16 05:37 WBC (4.5-11.0) K/mm3 RBC (3.65-5.03) M/mm3 Hgb (11.8-15.2) gm/dl Hct (35.5-45.6) % POC ABG pO2 79.0 L (83-108) mmHg ABG Hemoglobin 11.7 L (12.0-17.5) ABG Sodium 128.1 L (136.0-145.0) mmol/L ABG Potassium 6.6 H (3.40-4.50) mmol/L ABG Glucose 124 H (65-95) mg/dL Sodium (137-145) mmol/L Potassium 7.3 H* (3.6-5.0) mmol/L Carbon Dioxide (22-30) mmol/L BUN (9-20) mg/dL Creatinine (0.8-1.3) mg/dL Glucose (75-100) mg/dL POC Glucose 115 H (70-105) mg/dL Calcium (8.4-10.2) mg/dL Arterial Blood Glucose 124 H (65-95) mg/dL Arterial Blood Ionized Calcium 4.2 L (4.6-5.3) mg/dL 06/28/20 06/28/20 06/28/20 Range/Units 10:03 10:03 11:51 WBC 33.6 H (4.5-11.0) K/mm3 RBC 3.03 L (3.65-5.03) M/mm3 Hgb 8.9 L (11.8-15.2) gm/dl Hct 27.0 L (35.5-45.6) % POC ABG pO2 (83-108) mmHg ABG Hemoglobin (12.0-17.5) ABG Sodium (136.0-145.0) mmol/L ABG Potassium (3.40-4.50) mmol/L ABG Glucose (65-95) mg/dL Sodium 136 L (137-145) mmol/L Potassium 6.5 H* (3.6-5.0) mmol/L Carbon Dioxide 20 L (22-30) mmol/L BUN 129 H (9-20) mg/dL Creatinine 5.8 H (0.8-1.3) mg/dL Glucose 113 H (75-100) mg/dL POC Glucose 107 H (70-105) mg/dL Calcium 7.6 L (8.4-10.2) mg/dL Arterial Blood Glucose (65-95) mg/dL Arterial Blood Ionized Calcium (4.6-5.3) mg/dL 06/28/20 Range/Units Unknown WBC (4.5-11.0) K/mm3 RBC (3.65-5.03) M/mm3 Hgb (11.8-15.2) gm/dl Hct (35.5-45.6) % POC ABG pO2 (83-108) mmHg ABG Hemoglobin (12.0-17.5) ABG Sodium (136.0-145.0) mmol/L ABG Potassium (3.40-4.50) mmol/L ABG Glucose (65-95) mg/dL Sodium (137-145) mmol/L Potassium 5.4 H (3.6-5.0) mmol/L Carbon Dioxide (22-30) mmol/L BUN (9-20) mg/dL Creatinine (0.8-1.3) mg/dL Glucose (75-100) mg/dL POC Glucose (70-105) mg/dL Calcium (8.4-10.2) mg/dL Arterial Blood Glucose (65-95) mg/dL Arterial Blood Ionized Calcium (4.6-5.3) mg/dL
[2020-06-28] MEDS: AMIODARONE 900 MG in DEXTROSE 5% IN WATER 482 ML IV SCH (16:37)
--- NOTE | 2020-06-28 18:52 | Event Note ---
Date: 06/28/20 Family including and daughter were called at home phone number # [phone] Family updated about the patient's present condition Family was informed about Covid pneumonia respiratory failure vent dependency end-stage renal disease and the prognosis which is poor.
[2020-06-28] MEDS ORDERED: CALCIUM GLUCONATE 2,000 MG in SODIUM CHLORIDE 0.9% 100 ML IV ONE (19:45)
[2020-06-29] MEDS: fentaNYL DRIP Premix 2,000 MCG/100 ML BAG IV SCH ×3 (03:12→19:28)
[2020-06-29 04:14] LABS: Albumin 2.2 g/dL (3.9-5); Calcium 7.4 mg/dL (8.4-10.2)
[2020-06-29] MEDS: AMIODARONE 900 MG in DEXTROSE 5% IN WATER 482 ML IV SCH (05:04)
[2020-06-29] MEDS: INSULIN REGULAR, HUMAN 100 UNITS/1 ML SUB-Q SCH ×3 (05:07→18:32)
[2020-06-29] MEDS: METOCLOPRAMIDE 10 MG/2 ML INJ IV SCH ×3 (06:03→23:37)
--- NOTE | 2020-06-29 07:56 | Progress Note ---
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 The aggregate critical care time was [42] minutes. This time is in addition to time spent performing reported procedures but includes the following: [x] Data Review and interpretation [x] Patient assessment and monitoring of vital signs [x] Documentation [x] Medication orders and management Assessment and Plan Assessment and plan: 59-year-old white male who was admitted for pneumonia secondary to Covid with associated respiratory failure and sepsis. Hyperkalemia Treated aggressively Calcium gluconate IV sodium bicarbonate and Kayexalate given Acute metabolic encephalopathy -Due to severe sepsis and severe hypoxia -CT head ordered (patient is too unstable to do the scan), currently intubated, continue supportive care with frequent neuro check Acute hypoxic respiratory failure -Due to severe COVID-19 pneumonia -Intubated following admission overnight as patient was unable to maintain oxygenation with 100% FiO2 with BiPAP -Critical care following, frequent nebulizer breathing treatment, empiric steroid Severe septic shock -Patient currently on 2 pressor support -Wean off as tolerated COVID-19 pneumonia -Follow inflammatory markers, ID consulted --Patient initially tested positive for COVID-19 virus about 2 weeks before this admission -CXR shows patchy parenchymal disease which represent pulmonary edema or atypical pneumonia -Placed on dexamethasone for total 10 days and completed remdesivir total 5 days -Continue empiric antibiotics for now per ID recommendation -Droplet/contact isolation -Continue SPO2 monitoring -Supplemental oxygen as needed -Pulmonary hygiene, Prone intermittently to improve oxygenation -Vitamin C, vitamin D, zinc -Anticoagulation per protocol -Lasix IV as needed to prevent pulmonary edema GIRISH, likely ATN -Follow BMP daily, avoid nephrotoxins -Consulted nephrology, follow recommendations -Renal function continues to decline, started on hemodialysis since 06/22/20 hypokalemia, repleted Supraventricular tachycardia/paroxysmal atrial fibrillation -likely due to severe sepsis -Patient currently on 2 pressor, will initiate IV amiodarone drip for rate control if needed -Consulted cardiology, echo ordered currently pending -Placed on heparin drip Elevated LFT, due to shock liver from severe sepsis and COVID-19 infection -Continue to trend Morbid obesity, -Associated with poor outcome with Covid infection -need counseling for diet and exercise and healthy lifestyles once clinically stable as outpatient DVT prophylaxis, per Covid protocol Full CODE STATUS Poor prognosis Subjective Date of service: 06/28/20 Principal diagnosis: ARF/Septic Shock/COVID-19 PNA, AF with RVR Interval history: 59 YO Male with Obesity Hypoventilation Syndrome presents to ED for evaluation. Patient reports I feel weak and tired". Patient states that he has experienced generalized weakness, malaise, fatigue, decreased exercise tolerance, and shortness of breath over the past 1 week with persistently worsening symptoms with over the same timeframe. Patient states that he underwent a car coronavirus test over the weekend and was found to be coronavirus positive. EMS was notified and upon arrival the patient was found to be in distress with a pulse oximetry in the 60s. The patient was placed on supplemental oxygen and transported to [facility] for further care and evaluation of the aforementioned symptoms. Patient seen and evaluated in the emergency department. All lab imaging studies reviewed. Patient found to have a pulse oximetry of 76% on room air which is consistent with acute hypoxemic respiratory failure. Patient initiated on supplemental oxygen with mild improvement in symptoms. Patient also underwent chest x-ray and was found to have bilateral pneumonia complicated by sepsis, as well as acidosis. Patient admitted to medical floor and initiated on coronavirus protocol as well as pneumonia protocol. Patient denies fever, chills, chest pain, palpitations, productive cough, skin rash, recent ill contacts. No prior admission for review. No medication listed at time of admission for reconciliation. Advanced care planning conducted in ED. Patient admitted for respiratory failure with hypoxia Patient was intubated on 06/17/2020 daily course: 06/18: Patient got intubated overnight. Patient was placed on BiPAP to maintain oxygenation with 100% FiO2 but apparently he found to take off his argueta which made his oxygen saturation go down at 60s/50s and patient was found altered mental status. Code met was called immediately. Patient was transferred to ICU and intubated, patient currently on 2 pressors, intubated with 100% FiO2, renal function noted to be decline, nephrology consulted. Discussed with [place] physician Dr. Thompson and requested call back on Saturday. Poor prognosis, continue to monitor with aggressive supportive care. Also called family/ to update clinical status. 06/19: Repeat COVID test was positive. cont cefepime, remdesivir per ID recommendation. follow inflammatory markers, cbc, bmp. placed on heparin ip for atrial fib 06/20: Remains on mechanical ventilation, on 2 pressors, on heparin drip. discussed with and daughter by phone. Renal function declining. cont supportive care for now. 06/21: Renal function cont to decline, urine outpt sig decreased. started on lasix 80mg BID, plan to follow urine output, if no improvement patient need to start on HD. called and daughter today. updated all clinical details 06/22: Renal function continues to decline with uremia and hyperkalemia. Will need to proceed with hemodialysis. Nephrology discussed with the family and they agrees for the hemodialysis. Patient remains on pressor support and mechanical ventilation. Vas-Cath placed today by vascular started on hemodialysis today. 06/23: 2nd round of HD today, remains on 2 pressors. per RN not tolerating TF, has no record of BM since 06/18. start on stool softner. follow cbc/bmp. updated family( and daughter) by phone -all question answered to best of my knowledge and to their satisfaction. Patient remains critically ill with a very poor prognosis. 06/24: Continue supportive care, Very poor prognosis, Patient Service Representative to discuss wi th family in am due to the futility of the condition. 06/25/2020 continue supportive care very poor prognosis 06/26/2020 continue supportive care very poor prognosis family updated 06/27/2020 continue supportive care and weaning if possible 06/28/2020 continue supportive care, talk with at length History Interval history: patient seen and examined, remains on ventilator Objective - Exam Narrative Exam: Patient intubated - Constitutional Vitals: Vital Signs - 12hr 06/28/20 06/28/20 06/28/20 20:00 20:15 20:23 Temperature 98.1 F Pulse Rate 100 H 97 H 91 H Respiratory 31 H 29 H Rate Blood Pressure 92/48 100/46 92/48 O2 Sat by Pulse 97 96 97 Oximetry 06/28/20 06/28/20 06/28/20 20:30 20:45 21:00 Temperature Pulse Rate 109 H 87 95 H Respiratory 30 H 30 H 30 H Rate Blood Pressure 105/58 92/48 108/51 O2 Sat by Pulse 99 97 98 Oximetry 06/28/20 06/28/20 06/28/20 21:15 21:30 21:45 Temperature Pulse Rate 92 H 85 110 H Respiratory 30 H 30 H 30 H Rate Blood Pressure 105/58 99/45 99/45 O2 Sat by Pulse 98 99 98 Oximetry 06/28/20 06/28/20 06/28/20 22:00 22:11 22:15 Temperature Pulse Rate 96 H 102 H 94 H Respiratory 30 H 27 H 22 Rate Blood Pressure 95/51 108/51 108/51 O2 Sat by Pulse 98 98 98 Oximetry 06/28/20 06/28/20 06/28/20 22:30 22:45 23:00 Temperature Pulse Rate 88 82 97 H Respiratory 27 H 27 H 31 H Rate Blood Pressure 102/48 102/48 103/51 O2 Sat by Pulse 97 97 97 Oximetry 06/28/20 06/28/20 06/28/20 23:15 23:30 23:45 Temperature Pulse Rate 89 92 H 86 Respiratory 30 H 30 H 30 H Rate Blood Pressure 102/48 107/51 107/51 O2 Sat by Pulse 97 98 97 Oximetry 06/28/20 06/29/20 06/29/20 23:57 00:00 00:09 Temperature 98.9 F Pulse Rate 82 100 H Respiratory 30 H Rate Blood Pressure 96/48 96/48 O2 Sat by Pulse 97 97 Oximetry 06/29/20 06/29/20 06/29/20 00:15 00:30 00:45 Temperature Pulse Rate 91 H 94 H 93 H Respiratory 30 H 30 H 30 H Rate Blood Pressure 96/48 98/52 98/52 O2 Sat by Pulse 96 97 99 Oximetry 06/29/20 06/29/20 06/29/20 01:00 01:15 01:30 Temperature Pulse Rate 91 H 95 H 86 Respiratory 30 H 30 H 31 H Rate Blood Pressure 92/47 92/47 101/48 O2 Sat by Pulse 98 98 98 Oximetry 06/29/20 06/29/20 06/29/20 01:45 02:00 02:15 Temperature Pulse Rate 98 H 94 H 89 Respiratory 30 H 30 H 30 H Rate Blood Pressure 101/48 96/49 96/49 O2 Sat by Pulse 98 98 97 Oximetry 06/29/20 06/29/20 06/29/20 02:30 02:45 03:00 Temperature Pulse Rate 96 H 96 H 92 H Respiratory 28 H 30 H 30 H Rate Blood Pressure 88/48 88/48 87/52 O2 Sat by Pulse 97 98 97 Oximetry 06/29/20 06/29/20 06/29/20 03:15 03:31 03:45 Temperature Pulse Rate 84 94 H 89 Respiratory 30 H 30 H 30 H Rate Blood Pressure 87/52 127/52 127/52 O2 Sat by Pulse 99 99 98 Oximetry 06/29/20 06/29/20 06/29/20 04:00 04:15 04:30 Temperature 98.8 F Pulse Rate 96 H 111 H 107 H Respiratory 24 18 30 H Rate Blood Pressure 127/52 149/68 O2 Sat by Pulse 98 97 97 Oximetry 06/29/20 06/29/20 06/29/20 04:44 04:45 05:01 Temperature Pulse Rate 100 H 97 H 100 H Respiratory 27 H 30 H Rate Blood Pressure 149/68 149/68 138/53 O2 Sat by Pulse 96 97 100 Oximetry 06/29/20 06/29/20 06/29/20 05:15 05:31 05:45 Temperature Pulse Rate 101 H 102 H 104 H Respiratory 30 H 30 H 30 H Rate Blood Pressure 138/53 108/47 108/47 O2 Sat by Pulse 98 98 100 Oximetry 06/29/20 06:00 Temperature Pulse Rate 96 H Respiratory 30 H Rate Blood Pressure 108/47 O2 Sat by Pulse 100 Oximetry General appearance: Present: no acute distress, well-nourished - EENT Eyes: PERRL, EOM intact ENT: hearing intact, clear oral mucosa Ears: bilateral: normal - Neck Neck: supple, normal ROM - Respiratory Respiratory effort: normal Respiratory: bilateral: CTA - Breasts Breasts: normal - Cardiovascular Rhythm: regular Heart Sounds: Present: S1 & S2. Absent: gallop, rub Extremities: pulses intact, No edema, normal color, Full ROM - Gastrointestinal General gastrointestinal: Present: soft, non-tender, non-distended, normal bowel sounds - Genitourinary Male genitourinary: normal - Integumentary Integumentary: clear, warm, dry - Musculoskeletal Musculoskeletal: generalized weakness - Neurologic Neurologic: moves all extremities, other (Intubated ) - Psychiatric Psychiatric: other (Intubated) - Labs CBC & Chem 7: 06/28/20 10:03 06/29/20 03:45 Labs: Abnormal lab results 02/16/21 02/16/21 02/16/21 Range/Units 10:03 10:03 11:51 WBC 33.6 H (4.5-11.0) K/mm3 RBC 3.03 L (3.65-5.03) M/mm3 Hgb 8.9 L (11.8-15.2) gm/dl Hct 27.0 L (35.5-45.6) % ABG Hemoglobin (12.0-17.5) ABG Sodium (136.0-145.0) mmol/L ABG Potassium (3.40-4.50) mmol/L ABG Chloride (98-107) mmol/L ABG Glucose (65-95) mg/dL Sodium 136 L (137-145) mmol/L Potassium 6.5 H* (3.6-5.0) mmol/L Chloride (98-107) mmol/L Carbon Dioxide 20 L (22-30) mmol/L BUN 129 H (9-20) mg/dL Creatinine 5.8 H (0.8-1.3) mg/dL Glucose 113 H (75-100) mg/dL POC Glucose 107 H (70-105) mg/dL Calcium 7.6 L (8.4-10.2) mg/dL AST (5-40) units/L Total Protein (6.3-8.2) g/dL Albumin (3.9-5) g/dL Arterial Blood Glucose (65-95) mg/dL Arterial Blood Ionized Calcium (4.6-5.3) mg/dL 06/28/20 06/28/20 06/29/20 Range/Units 17:45 Unknown 03:15 WBC (4.5-11.0) K/mm3 RBC (3.65-5.03) M/mm3 Hgb (11.8-15.2) gm/dl Hct (35.5-45.6) % ABG Hemoglobin 7.8 L (12.0-17.5) ABG Sodium 127.4 L (136.0-145.0) mmol/L ABG Potassium 5.5 H (3.40-4.50) mmol/L ABG Chloride 97.0 L (98-107) mmol/L ABG Glucose 96 H (65-95) mg/dL Sodium (137-145) mmol/L Potassium 5.4 H (3.6-5.0) mmol/L Chloride (98-107) mmol/L Carbon Dioxide (22-30) mmol/L BUN (9-20) mg/dL Creatinine (0.8-1.3) mg/dL Glucose (75-100) mg/dL POC Glucose 117 H (70-105) mg/dL Calcium (8.4-10.2) mg/dL AST (5-40) units/L Total Protein (6.3-8.2) g/dL Albumin (3.9-5) g/dL Arterial Blood Glucose 96 H (65-95) mg/dL Arterial Blood Ionized Calcium 4.0 L (4.6-5.3) mg/dL 06/29/20 Range/Units 03:45 WBC (4.5-11.0) K/mm3 RBC (3.65-5.03) M/mm3 Hgb (11.8-15.2) gm/dl Hct (35.5-45.6) % ABG Hemoglobin (12.0-17.5) ABG Sodium (136.0-145.0) mmol/L ABG Potassium (3.40-4.50) mmol/L ABG Chloride (98-107) mmol/L ABG Glucose (65-95) mg/dL Sodium 135 L (137-145) mmol/L Potassium 6.0 H (3.6-5.0) mmol/L Chloride 94.8 L (98-107) mmol/L Carbon Dioxide (22-30) mmol/L BUN 109 H (9-20) mg/dL Creatinine 5.5 H (0.8-1.3) mg/dL Glucose (75-100) mg/dL POC Glucose (70-105) mg/dL Calcium 7.4 L (8.4-10.2) mg/dL AST 47 H (5-40) units/L Total Protein 4.9 L (6.3-8.2) g/dL Albumin 2.2 L (3.9-5) g/dL Arterial Blood Glucose (65-95) mg/dL Arterial Blood Ionized Calcium (4.6-5.3) mg/dL HEART Score - HEART Score Troponin: Troponin T < 0.010 ng/mL (0.00-0.029) 06/17/20 12:33
--- NOTE | 2020-06-29 07:59 | Progress Note ---
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 The aggregate critical care time was [42] minutes. This time is in addition to time spent performing reported procedures but includes the following: [x] Data Review and interpretation [x] Patient assessment and monitoring of vital signs [x] Documentation [x] Medication orders and management Assessment and Plan Assessment and plan: 59-year-old white male who was admitted for pneumonia secondary to Covid with associated respiratory failure and sepsis. Hyperkalemia Treated aggressively Calcium gluconate IV sodium bicarbonate and Kayexalate given Acute metabolic encephalopathy -Due to severe sepsis and severe hypoxia -CT head ordered (patient is too unstable to do the scan), currently intubated, continue supportive care with frequent neuro check Acute hypoxic respiratory failure -Due to severe COVID-19 pneumonia -Intubated following admission overnight as patient was unable to maintain oxygenation with 100% FiO2 with BiPAP -Critical care following, frequent nebulizer breathing treatment, empiric steroid Severe septic shock -Patient currently on 2 pressor support -Wean off as tolerated COVID-19 pneumonia -Follow inflammatory markers, ID consulted --Patient initially tested positive for COVID-19 virus about 2 weeks before this admission -CXR shows patchy parenchymal disease which represent pulmonary edema or atypical pneumonia -Placed on dexamethasone for total 10 days and completed remdesivir total 5 days -Continue empiric antibiotics for now per ID recommendation -Droplet/contact isolation -Continue SPO2 monitoring -Supplemental oxygen as needed -Pulmonary hygiene, Prone intermittently to improve oxygenation -Vitamin C, vitamin D, zinc -Anticoagulation per protocol -Lasix IV as needed to prevent pulmonary edema GIRISH, likely ATN -Follow BMP daily, avoid nephrotoxins -Consulted nephrology, follow recommendations -Renal function continues to decline, started on hemodialysis since 06/22/20 hypokalemia, repleted Supraventricular tachycardia/paroxysmal atrial fibrillation -likely due to severe sepsis -Patient currently on 2 pressor, will initiate IV amiodarone drip for rate control if needed -Consulted cardiology, echo ordered currently pending -Placed on heparin drip Elevated LFT, due to shock liver from severe sepsis and COVID-19 infection -Continue to trend Morbid obesity, -Associated with poor outcome with Covid infection -need counseling for diet and exercise and healthy lifestyles once clinically stable as outpatient DVT prophylaxis, per Covid protocol Full CODE STATUS Poor prognosis Subjective Date of service: 06/27/20 Principal diagnosis: ARF/Septic Shock/COVID-19 PNA, AF with RVR Interval history: 59 YO Male with Obesity Hypoventilation Syndrome presents to ED for evaluation. Patient reports I feel weak and tired". Patient states that he has experienced generalized weakness, malaise, fatigue, decreased exercise tolerance, and shortness of breath over the past 1 week with persistently worsening symptoms with over the same timeframe. Patient states that he underwent a car coronavirus test over the weekend and was found to be coronavirus positive. EMS was notified and upon arrival the patient was found to be in distress with a pulse oximetry in the 60s. The patient was placed on supplemental oxygen and transported to [facility] for further care and evaluation of the aforementioned symptoms. Patient seen and evaluated in the emergency department. All lab imaging studies reviewed. Patient found to have a pulse oximetry of 76% on room air which is consistent with acute hypoxemic respiratory failure. Patient initiated on supplemental oxygen with mild improvement in symptoms. Patient also underwent chest x-ray and was found to have bilateral pneumonia complicated by sepsis, as well as acidosis. Patient admitted to medical floor and initiated on coronavirus protocol as well as pneumonia protocol. Patient denies fever, chills, chest pain, palpitations, productive cough, skin rash, recent ill contacts. No prior admission for review. No medication listed at time of admission for reconciliation. Advanced care planning conducted in ED. Patient admitted for respiratory failure with hypoxia Patient was intubated on 06/17/2020 daily course: 06/18: Patient got intubated overnight. Patient was placed on BiPAP to maintain oxygenation with 100% FiO2 but apparently he found to take off his argueta which made his oxygen saturation go down at 60s/50s and patient was found altered mental status. Code met was called immediately. Patient was transferred to ICU and intubated, patient currently on 2 pressors, intubated with 100% FiO2, renal function noted to be decline, nephrology consulted. Discussed with [place] physician Dr. Thompson and requested call back on Saturday. Poor prognosis, continue to monitor with aggressive supportive care. Also called family/ to update clinical status. 06/19: Repeat COVID test was positive. cont cefepime, remdesivir per ID recommendation. follow inflammatory markers, cbc, bmp. placed on heparin ip for atrial fib 06/20: Remains on mechanical ventilation, on 2 pressors, on heparin drip. discussed with and daughter by phone. Renal function declining. cont supportive care for now. 06/21: Renal function cont to decline, urine outpt sig decreased. started on lasix 80mg BID, plan to follow urine output, if no improvement patient need to start on HD. called and daughter today. updated all clinical details 06/22: Renal function continues to decline with uremia and hyperkalemia. Will need to proceed with hemodialysis. Nephrology discussed with the family and they agrees for the hemodialysis. Patient remains on pressor support and mechanical ventilation. Vas-Cath placed today by vascular started on hemodialysis today. 06/23: 2nd round of HD today, remains on 2 pressors. per RN not tolerating TF, has no record of BM since 06/18. start on stool softner. follow cbc/bmp. updated family( and daughter) by phone -all question answered to best of my knowledge and to their satisfaction. Patient remains critically ill with a very poor prognosis. 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 06/25/2020 continue supportive care very poor prognosis 06/26/2020 continue supportive care very poor prognosis family updated 06/27/2020 continue supportive care and weaning if possible History Interval history: patient seen and examined, remains on ventilator Objective - Exam Narrative Exam: Patient intubated - Constitutional Vitals: Vital Signs - 12hr 06/28/20 06/28/20 06/28/20 20:00 20:15 20:23 Temperature 98.1 F Pulse Rate 100 H 97 H 91 H Respiratory 31 H 29 H Rate Blood Pressure 92/48 100/46 92/48 O2 Sat by Pulse 97 96 97 Oximetry 06/28/20 06/28/20 06/28/20 20:30 20:45 21:00 Temperature Pulse Rate 109 H 87 95 H Respiratory 30 H 30 H 30 H Rate Blood Pressure 105/58 92/48 108/51 O2 Sat by Pulse 99 97 98 Oximetry 06/28/20 06/28/20 06/28/20 21:15 21:30 21:45 Temperature Pulse Rate 92 H 85 110 H Respiratory 30 H 30 H 30 H Rate Blood Pressure 105/58 99/45 99/45 O2 Sat by Pulse 98 99 98 Oximetry 06/28/20 06/28/20 06/28/20 22:00 22:11 22:15 Temperature Pulse Rate 96 H 102 H 94 H Respiratory 30 H 27 H 22 Rate Blood Pressure 95/51 108/51 108/51 O2 Sat by Pulse 98 98 98 Oximetry 06/28/20 06/28/20 06/28/20 22:30 22:45 23:00 Temperature Pulse Rate 88 82 97 H Respiratory 27 H 27 H 31 H Rate Blood Pressure 102/48 102/48 103/51 O2 Sat by Pulse 97 97 97 Oximetry 06/28/20 06/28/20 06/28/20 23:15 23:30 23:45 Temperature Pulse Rate 89 92 H 86 Respiratory 30 H 30 H 30 H Rate Blood Pressure 102/48 107/51 107/51 O2 Sat by Pulse 97 98 97 Oximetry 06/28/20 06/29/20 06/29/20 23:57 00:00 00:09 Temperature 98.9 F Pulse Rate 82 100 H Respiratory 30 H Rate Blood Pressure 96/48 96/48 O2 Sat by Pulse 97 97 Oximetry 06/29/20 06/29/20 06/29/20 00:15 00:30 00:45 Temperature Pulse Rate 91 H 94 H 93 H Respiratory 30 H 30 H 30 H Rate Blood Pressure 96/48 98/52 98/52 O2 Sat by Pulse 96 97 99 Oximetry 06/29/20 06/29/20 06/29/20 01:00 01:15 01:30 Temperature Pulse Rate 91 H 95 H 86 Respiratory 30 H 30 H 31 H Rate Blood Pressure 92/47 92/47 101/48 O2 Sat by Pulse 98 98 98 Oximetry 06/29/20 06/29/20 06/29/20 01:45 02:00 02:15 Temperature Pulse Rate 98 H 94 H 89 Respiratory 30 H 30 H 30 H Rate Blood Pressure 101/48 96/49 96/49 O2 Sat by Pulse 98 98 97 Oximetry 06/29/20 06/29/20 06/29/20 02:30 02:45 03:00 Temperature Pulse Rate 96 H 96 H 92 H Respiratory 28 H 30 H 30 H Rate Blood Pressure 88/48 88/48 87/52 O2 Sat by Pulse 97 98 97 Oximetry 02/06/29/20 06/29/20 03:15 03:31 03:45 Temperature Pulse Rate 84 94 H 89 Respiratory 30 H 30 H 30 H Rate Blood Pressure 87/52 127/52 127/52 O2 Sat by Pulse 99 99 98 Oximetry 06/29/20 06/29/20 06/29/20 04:00 04:15 04:30 Temperature 98.8 F Pulse Rate 96 H 111 H 107 H Respiratory 24 18 30 H Rate Blood Pressure 127/52 149/68 O2 Sat by Pulse 98 97 97 Oximetry 06/29/20 06/29/20 06/29/20 04:44 04:45 05:01 Temperature Pulse Rate 100 H 97 H 100 H Respiratory 27 H 30 H Rate Blood Pressure 149/68 149/68 138/53 O2 Sat by Pulse 96 97 100 Oximetry 06/29/20 06/29/20 06/29/20 05:15 05:31 05:45 Temperature Pulse Rate 101 H 102 H 104 H Respiratory 30 H 30 H 30 H Rate Blood Pressure 138/53 108/47 108/47 O2 Sat by Pulse 98 98 100 Oximetry 06/29/20 06:00 Temperature Pulse Rate 96 H Respiratory 30 H Rate Blood Pressure 108/47 O2 Sat by Pulse 100 Oximetry General appearance: Present: no acute distress, well-nourished - EENT Eyes: PERRL, EOM intact ENT: hearing intact, clear oral mucosa Ears: bilateral: normal - Neck Neck: supple, normal ROM - Respiratory Respiratory effort: normal Respiratory: bilateral: CTA - Breasts Breasts: normal - Cardiovascular Heart rate: 76 Rhythm: regular Heart Sounds: Present: S1 & S2. Absent: gallop, rub Extremities: pulses intact, No edema, normal color, Full ROM - Gastrointestinal General gastrointestinal: Present: soft, non-tender, non-distended, normal bowel sounds - Genitourinary Male genitourinary: normal - Integumentary Integumentary: clear, warm, dry - Musculoskeletal Musculoskeletal: generalized weakness - Neurologic Neurologic: moves all extremities, other (Patient intubated) - Psychiatric Psychiatric: other (Patient intubated) - Labs CBC & Chem 7: 06/28/20 10:03 06/29/20 03:45 Labs: Abnormal lab results 06/28/20 06/28/20 06/28/20 Range/Units 10:03 10:03 11:51 WBC 33.6 H (4.5-11.0) K/mm3 RBC 3.03 L (3.65-5.03) M/mm3 Hgb 8.9 L (11.8-15.2) gm/dl Hct 27.0 L (35.5-45.6) % ABG Hemoglobin (12.0-17.5) ABG Sodium (136.0-145.0) mmol/L ABG Potassium (3.40-4.50) mmol/L ABG Chloride (98-107) mmol/L ABG Glucose (65-95) mg/dL Sodium 136 L (137-145) mmol/L Potassium 6.5 H* (3.6-5.0) mmol/L Chloride (98-107) mmol/L Carbon Dioxide 20 L (22-30) mmol/L BUN 129 H (9-20) mg/dL Creatinine 5.8 H (0.8-1.3) mg/dL Glucose 113 H (75-100) mg/dL POC Glucose 107 H (70-105) mg/dL Calcium 7.6 L (8.4-10.2) mg/dL AST (5-40) units/L Total Protein (6.3-8.2) g/dL Albumin (3.9-5) g/dL Arterial Blood Glucose (65-95) mg/dL Arterial Blood Ionized Calcium (4.6-5.3) mg/dL 06/28/20 06/28/20 06/29/20 Range/Units 17:45 Unknown 03:15 WBC (4.5-11.0) K/mm3 RBC (3.65-5.03) M/mm3 Hgb (11.8-15.2) gm/dl Hct (35.5-45.6) % ABG Hemoglobin 7.8 L (12.0-17.5) ABG Sodium 127.4 L (136.0-145.0) mmol/L ABG Potassium 5.5 H (3.40-4.50) mmol/L ABG Chloride 97.0 L (98-107) mmol/L ABG Glucose 96 H (65-95) mg/dL Sodium (137-145) mmol/L Potassium 5.4 H (3.6-5.0) mmol/L Chloride (98-107) mmol/L Carbon Dioxide (22-30) mmol/L BUN (9-20) mg/dL Creatinine (0.8-1.3) mg/dL Glucose (75-100) mg/dL POC Glucose 117 H (70-105) mg/dL Calcium (8.4-10.2) mg/dL AST (5-40) units/L Total Protein (6.3-8.2) g/dL Albumin (3.9-5) g/dL Arterial Blood Glucose 96 H (65-95) mg/dL Arterial Blood Ionized Calcium 4.0 L (4.6-5.3) mg/dL 06/29/20 Range/Units 03:45 WBC (4.5-11.0) K/mm3 RBC (3.65-5.03) M/mm3 Hgb (11.8-15.2) gm/dl Hct (35.5-45.6) % ABG Hemoglobin (12.0-17.5) ABG Sodium (136.0-145.0) mmol/L ABG Potassium (3.40-4.50) mmol/L ABG Chloride (98-107) mmol/L ABG Glucose (65-95) mg/dL Sodium 135 L (137-145) mmol/L Potassium 6.0 H (3.6-5.0) mmol/L Chloride 94.8 L (98-107) mmol/L Carbon Dioxide (22-30) mmol/L BUN 109 H (9-20) mg/dL Creatinine 5.5 H (0.8-1.3) mg/dL Glucose (75-100) mg/dL POC Glucose (70-105) mg/dL Calcium 7.4 L (8.4-10.2) mg/dL AST 47 H (5-40) units/L Total Protein 4.9 L (6.3-8.2) g/dL Albumin 2.2 L (3.9-5) g/dL Arterial Blood Glucose (65-95) mg/dL Arterial Blood Ionized Calcium (4.6-5.3) mg/dL HEART Score - HEART Score Troponin: Troponin T < 0.010 ng/mL (0.00-0.029) 06/17/20 12:33
[2020-06-29] MEDS: ZINC SULFATE 220 MG CAP PO SCH ×2 (10:19→23:36)
[2020-06-29] MEDS: QUEtiapine 200 MG TAB PO SCH ×2 (10:19→23:37)
[2020-06-29] MEDS: ASCORBIC ACID 250 MG TAB PO SCH ×2 (10:19→23:37)
[2020-06-29] MEDS: FAMOTIDINE 20 MG/2 ML INJ IV SCH (10:19)
[2020-06-29] MEDS: DOCUSATE SODIUM 100 MG/10 ML ORAL LIQD FEEDTUBE SCH ×2 (10:19→23:36)
[2020-06-29] MEDS: POLYETHYLENE GLYCOL 3350 17 GM POWDER PO SCH (10:19)
[2020-06-29] MEDS: CHOLECALCIFEROL (VIT D3) 1000 UNIT (25 mcg) TAB PO SCH (10:19)
--- NOTE | 2020-06-29 10:42 | Progress Note ---
Assessment and Plan - Patient Problems (1) Acute renal failure Current Visit: Yes Status: Acute Plan to address problem: Acute kidney failure Covid as stated nephropathy -prerenal azotemia versus acute tubular necrosis. Kidney function worsening and patient developed hyperkalemia, refractory acidosis and worsening azotemia. Hemodialysis initiated on June 22. Hemodynamic status has improved as patient is now off of vasopressors. Hemodialysis again today (2) Severe sepsis with septic shock Current Visit: Yes Status: Acute Plan to address problem: Continue antibiotics per infectious disease health analytics consultant appropriately adjusted to the degree of renal function. Patient is off of vasopressors. (3) Hyperkalemia Current Visit: Yes Status: Acute Plan to address problem: Persistent hypokalemia. Suspect inadequate clearance with dialysis. Also need to exclude cell lysis. Follow-up hemoglobin and also check CPK. Will need dialysis again today. Repeat potassium after dialysis today. (4) Metabolic acidosis Current Visit: Yes Status: Acute Plan to address problem: Acidosis improving with dialysis. (5) Acute respiratory failure with hypoxia Current Visit: Yes Status: Acute Plan to address problem: Continue respiratory management by pulmonary (6) Pneumonia due to COVID-19 virus Current Visit: Yes Status: Acute Plan to address problem: IV Dexamethasone Supplemental oxygen/Respiratory support as needed Proning as tolerated Remdesevir contra-indicated due to Kidney failure Prophylactic anticoagulation Trend inflammatory markers to assess disease progression and prognosis (7) Transaminitis Current Visit: Yes Status: Acute Plan to address problem: Hypoperfusion injury. Follow-up liver function test Subjective Date of service: 06/29/20 Principal diagnosis: ARF/Septic Shock/COVID-19 PNA, AF with RVR Interval history: Patient was not examined today due to the COVID-19 status to limit exposure of the consulting modeler and also for PPE preservation. I reviewed multidisciplinary notes and discussed with staff and physicians as needed. Patient is sedated on propofol and fentanyl. He is on anticoagulation with intravenous heparin. Discussed with the nurse on medical floor. Patient is still off of vasopressors. He had dialysis again yesterday and potassium had decreased but is again high this morning. Objective - Exam Narrative Exam: Patient was not examined at the bedside today due to personal protective equipment preservation during the COVID-19 pandemic. Patient is off pressors now - Vital Signs Vital signs: Vital Signs - 12hr 06/28/20 06/28/20 06/28/20 22:45 23:00 23:15 Temperature Pulse Rate 82 97 H 89 Pulse Rate [ From Monitor] Respiratory 27 H 31 H 30 H Rate Blood Pressure 102/48 103/51 102/48 O2 Sat by Pulse 97 97 97 Oximetry 06/28/20 06/28/20 06/28/20 23:30 23:45 23:57 Temperature 98.9 F Pulse Rate 92 H 86 Pulse Rate [ From Monitor] Respiratory 30 H 30 H Rate Blood Pressure 107/51 107/51 O2 Sat by Pulse 98 97 Oximetry 06/29/20 06/29/20 06/29/20 00:00 00:09 00:15 Temperature Pulse Rate 82 100 H 91 H Pulse Rate [ From Monitor] Respiratory 30 H 30 H Rate Blood Pressure 96/48 96/48 96/48 O2 Sat by Pulse 97 97 96 Oximetry 06/29/20 06/29/20 06/29/20 00:30 00:45 01:00 Temperature Pulse Rate 94 H 93 H 91 H Pulse Rate [ From Monitor] Respiratory 30 H 30 H 30 H Rate Blood Pressure 98/52 98/52 92/47 O2 Sat by Pulse 97 99 98 Oximetry 06/29/20 06/29/20 06/29/20 01:15 01:30 01:45 Temperature Pulse Rate 95 H 86 98 H Pulse Rate [ From Monitor] Respiratory 30 H 31 H 30 H Rate Blood Pressure 92/47 101/48 101/48 O2 Sat by Pulse 98 98 98 Oximetry 06/29/20 06/29/20 06/29/20 02:00 02:15 02:30 Temperature Pulse Rate 94 H 89 96 H Pulse Rate [ From Monitor] Respiratory 30 H 30 H 28 H Rate Blood Pressure 96/49 96/49 88/48 O2 Sat by Pulse 98 97 97 Oximetry 06/29/20 06/29/20 06/29/20 02:45 03:00 03:15 Temperature Pulse Rate 96 H 92 H 84 Pulse Rate [ From Monitor] Respiratory 30 H 30 H 30 H Rate Blood Pressure 88/48 87/52 87/52 O2 Sat by Pulse 98 97 99 Oximetry 06/29/20 06/29/20 06/29/20 03:31 03:45 04:00 Temperature 98.8 F Pulse Rate 94 H 89 96 H Pulse Rate [ From Monitor] Respiratory 30 H 30 H 24 Rate Blood Pressure 127/52 127/52 127/52 O2 Sat by Pulse 99 98 98 Oximetry 06/29/20 06/29/20 06/29/20 04:15 04:30 04:44 Temperature Pulse Rate 111 H 107 H 100 H Pulse Rate [ From Monitor] Respiratory 18 30 H Rate Blood Pressure 149/68 149/68 O2 Sat by Pulse 97 97 96 Oximetry 06/29/20 06/29/20 06/29/20 04:45 05:01 05:15 Temperature Pulse Rate 97 H 100 H 101 H Pulse Rate [ From Monitor] Respiratory 27 H 30 H 30 H Rate Blood Pressure 149/68 138/53 138/53 O2 Sat by Pulse 97 100 98 Oximetry 06/29/20 06/29/20 06/29/20 05:31 05:45 06:00 Temperature Pulse Rate 102 H 104 H 96 H Pulse Rate [ From Monitor] Respiratory 30 H 30 H 30 H Rate Blood Pressure 108/47 108/47 108/47 O2 Sat by Pulse 98 100 100 Oximetry 06/29/20 06/29/20 06/29/20 06:15 06:30 06:45 Temperature Pulse Rate 94 H 111 H 106 H Pulse Rate [ From Monitor] Respiratory 30 H 31 H 30 H Rate Blood Pressure 95/47 106/46 106/46 O2 Sat by Pulse 100 100 100 Oximetry 06/29/20 06/29/20 06/29/20 07:00 07:15 07:30 Temperature Pulse Rate 92 H 103 H 99 H Pulse Rate [ From Monitor] Respiratory 30 H 30 H 30 H Rate Blood Pressure 104/46 104/46 104/49 O2 Sat by Pulse 100 100 100 Oximetry 06/29/20 06/29/20 06/29/20 07:45 07:58 08:00 Temperature 99.2 F Pulse Rate 96 H 100 H Pulse Rate [ 106 H From Monitor] Respiratory 30 H 30 H 31 H Rate Blood Pressure 104/49 92/46 O2 Sat by Pulse 100 100 99 Oximetry 06/29/20 08:32 Temperature Pulse Rate 95 H Pulse Rate [ From Monitor] Respiratory Rate Blood Pressure 97/49 O2 Sat by Pulse 97 Oximetry - Lab 06/28/20 10:03 06/29/20 03:45 Most recent lab results ABG pH 7.369 (7.320-7.450) 06/29/20 03:15 Calcium 7.4 mg/dL (8.4-10.2) L 06/29/20 03:45 Magnesium 2.70 mg/dL (1.7-2.3) H 06/18/20 20:33 Urine Creatinine 192.4 mg/dL (0.1-20.0) H 06/18/20 15:00 Urine Sodium 28 mmol/L 06/18/20 15:00 Medications & Allergies - Medications Allergies/Adverse Reactions: Allergies No Known Allergies Allergy (Unverified 06/17/20 14:24) Home Medications: Home Medications Medication Instructions Recorded Confirmed Last Taken Type Losartan/Hydrochlorothiazide 1 each PO QDAY 06/19/20 06/19/20 Unknown History [Losartan-Hctz 100-25 mg Tab] amLODIPine [Norvasc] 5 mg PO DAILY 06/19/20 06/19/20 Unknown History Active Medications: Generic Name Dose Route Start Last Admin Trade Name Freq PRN Reason Stop Dose Admin Acetaminophen 650 mg 06/17/20 14:17 06/19/20 06:42 Acetaminophen 325 Mg Tab PO 650 mg Q4H PRN Administration Pain MILD(1-3)/Fever >100.5/ROBERTS Lipase/Protease/Amylase 1 each 06/19/20 12:15 Lipase 10,500/Protease 25,000/Amylase 43,750 (Units) Dr Kulkarni FEEDTUBE PRN PRN For Clogged Feeding Tube Ascorbic Acid 250 mg 06/17/20 22:00 06/29/20 10:19 Ascorbic Acid 250 Mg Tab PO 250 mg BID CONNOR Administration Cholecalciferol 1,000 unit 06/18/20 10:00 06/29/20 10:19 Cholecalciferol (Vit D3) 1000 Unit (25 Mcg) Tab PO 1,000 unit DAILY CONNOR Administration Docusate Sodium 100 mg 06/23/20 15:00 06/29/20 10:19 Docusate Sodium 100 Mg/10 Ml Oral Liqd FEEDTUBE 100 mg BID CONNOR Administration Famotidine 20 mg 06/20/20 11:00 06/29/20 10:19 Famotidine 20 Mg/2 Ml Inj IV 20 mg DAILY CONNOR Administration Fentanyl 50 mcg 06/18/20 01:02 06/28/20 04:32 Fentanyl 100 Mcg/2 Ml Inj IV 50 mcg Q10MIN PRN Administration ANALGESIA Heparin Sodium (Porcine) 4,500 unit 06/19/20 11:34 06/25/20 19:22 Heparin 10,000 Units/10 Ml Vial 40 unit/kg (4500 unit) 4,500 unit IV Administration Q6H PRN Anti-Xa Assay < 0.1 units/ml Heparin Sodium (Porcine) 5,000 unit 06/22/20 12:53 06/28/20 06:11 Heparin 10,000 Unit/1 Ml Vial IV 5,000 unit PAM PRN Administration hemodialysis Hydrophilic Ointment 1 applic 06/17/20 22:52 Lip Therapy Vaseline TP Q2HR PRN Dry Lips Norepinephrine 4 mg in 250 mls @ 7.5 mls/hr 06/18/20 00:00 06/28/20 17:30 Levophed Drip 4 Mg/Ns 250 Ml IV 0 mcg/min TITR CONNOR 0 mls/hr Titration Protocol 2 MCG/MIN Propofol 1,000 mg in 100 mls @ 3.402 mls/hr 06/18/20 01:00 06/29/20 10:35 Diprivan 10 Mg/Ml IV 25 mcg/kg/min TITR CONNOR 17.01 mls/hr Titration Protocol 5 MCG/KG/MIN Fentanyl Citrate 2,000 mcg in 100 mls @ 5.67 mls/hr 06/18/20 02:00 06/29/20 03:12 Fentanyl Drip Premix IV 2 mcg/kg/hr TITR CONNOR 11.34 mls/hr Administration Protocol 1 MCG/KG/HR Vasopressin 20 unit/ Sodium 101 mls @ 9.09 mls/hr 06/18/20 10:00 06/24/20 18:05 Chloride IV 0 units/min TITR CONNOR 0 mls/hr Titration Protocol 0.03 UNITS/MIN Sodium Chloride 500 mls @ 1 mls/hr 06/18/20 09:38 06/19/20 21:37 Nacl 0.9% 500 Ml IV 0 mls/hr DIRECT PRN Infusion ARTERIAL LINE FLUSH Heparin Sodium/Sodium Chloride 25,000 unit in 500 mls @ 30 mls/hr 06/19/20 12:00 06/25/20 19:49 Heparin/ 0.45% Nacl-25,000 Unit/500 Ml IV 0 units/hr TITR CONNOR 0 mls/hr Titration Protocol 1,500 UNITS/HR Sodium Chloride 100 mls @ 999 mls/hr 06/28/20 01:25 Nacl 0.9% IV PAM PRN Hypotension Amiodarone HCl 900 mg/ 500 mls @ 33.333 mls/hr 06/28/20 15:00 06/29/20 05:04 Dextrose IV 1 mg/min DIRECT CONNOR 33.333 mls/hr Administration Protocol 1 MG/MIN Insulin Human Regular 0 units 06/18/20 12:00 06/29/20 05:07 Insulin Regular, Human 100 Units/1 Ml SUB-Q Not Given Q6HR CONNOR Protocol Lorazepam 1 mg 06/17/20 17:05 06/17/20 17:10 Lorazepam 2 Mg/Ml Vial IV 1 mg BID PRN Administration Anxiety Metoclopramide HCl 10 mg 06/28/20 13:00 06/29/20 06:03 Metoclopramide 10 Mg/2 Ml Inj IV 10 mg Q8H CONNOR Administration Multi-Ingred Cream/Lotion/Oil/Oint 1 applic 06/17/20 22:52 Mineral Oil/Petrolatum, White Ophth Oint 3.5 Gm OU Q4HR PRN Dry Eye(s) Ondansetron HCl 4 mg 06/17/20 14:17 Ondansetron 4 Mg/2 Ml Inj IV Q8H PRN Nausea And Vomiting Polyethylene Glycol 17 gm 06/23/20 15:00 06/29/20 10:19 Polyethylene Glycol 3350 17 Gm Powder PO 17 gm QDAY CONNOR Administration Quetiapine Fumarate 200 mg 06/28/20 13:00 06/29/20 10:19 Quetiapine 200 Mg Tab PO 200 mg BID CONNOR Administration Simple Syrup 15 ml 06/19/20 12:15 Simple Syrup 15 Ml FEEDTUBE PRN PRN Hypoglycemia Simple Syrup 30 ml 06/19/20 12:15 Simple Syrup 15 Ml FEEDTUBE PRN PRN Hypoglycemia Sodium Bicarbonate 325 mg 06/19/20 12:15 Sodium Bicarbonate 325 Mg Tab FEEDTUBE PRN PRN For Clogged Feeding Tube Sodium Chloride 10 ml 06/17/20 22:00 06/29/20 10:19 Sodium Chloride 0.9% 10 Ml Flush Syringe IV 10 ml BID CONNOR Administration Sodium Chloride 10 ml 06/17/20 14:17 Sodium Chloride 0.9% 10 Ml Flush Syringe IV PRN PRN LINE FLUSH Zinc Sulfate 220 mg 06/17/20 22:00 06/29/20 10:19 Zinc Sulfate 220 Mg Cap PO 220 mg BID CONNOR Administration
--- NOTE | 2020-06-29 11:52 | Progress Note ---
Assessment and Plan Acute hypoxemic respiratory failure due to COVID-19 Severe COVID infection Severe Sepsis with shock Bilateral pneumonia Acute kidney injury (GIRISH) with acute tubular necrosis (ATN) Elevated liver enzymes Obesity - advance tube feeds by 10 mls/hr q12h till back at goal rate - Levophed resumed, titrate for target MAP > 65 mmHg - for repeat HD/UF today - continue Seroquel (QTc 420) - s/p antibiotics per ID recommendations - continue daily SAT's & SBT's as tolerated - continue care as below otherwise; - continue tube feeds and advance to goal rate as tolerated - continue HD/UF per nephrology team for toxin and volume clearance - continue bowel regimen - rate control per cardiology team for afib RVR - Continue to wean supplemental oxygen for O2 sats >92% - Monitor blood pressure closely while optimizing sedation,wean vasopressor support for MAP > 65 mmHg - Critical care prone positioning - Agitation management, keep RASS -1 to -12 now off proning - VAP bundle addressed, aspiration precautions HOB >40 - continue lung protective strategies, permissive hypercapnic acceptable. - continue bronchodilators with pulmonary hygiene per RT - wean per pulmonary driven protocols otherwise - accuchecks with glycemic control per SSI (While critically ill target blood glucose of 140-180 mg/dL; avoid hypoglycemia) - sedation prn for target RASS -1 to -2 - continue enteral nutritional support at goal rate as tolerated - Monitor liver function test ,avoid hepatotoxic agents - azotemia per nephrology rec's - Avoid nephrotoxins, renally dose all medications, conservative fluid management - continue to avoid benzodiazepines, reduce the possibility of delirium, - prn analgesia per CPOT score - Maintenance of sleep-wake cycle, avoid delirium - Stress ulcer prophylaxis, Famotidine - PT/OT/ROM exercises - Mobility protocols for pressure ulcer prevention - CXR, ABG in am - CBC, CMP in am - Supportive transfusions to keep HgB >7g/dL - Monitor hemodynamics closely - continue other care per attending / other consultants COVID SPECIFIC INTERVENTIONS - continue steroids: Dexamethasone - continue with Remdesivir - monitor inflammatory markers - ferritin, D-dimer, CRP, LDH per facility srikanth col - continue anticoagulation per System Protocol based on d-dimer - continue contact and airborne isolation CONDITION: CRITICAL PROGNOSIS: GUARDED CODE STATUS: FULL CODE The high probability of a clinically significant, sudden or life-threatening deterioration of the [respiratory, cardiovascular, hematologic & neurologic] system(s) required my full and direct attention, intervention and personal management. The aggregate critical care time was [34] minutes without overlap. Time includes spent on; [x] Data Review and interpretation [x] Patient assessment and monitoring of vital signs [x] Documentation [x] Medication orders and management He was evaluated in the context of the global COVID-19 pandemic, which necessitated consideration that the patient might be at risk for infection with the virus that causes COVID-19. Institutional protocols and algorithms that pertain to the evaluation of patients at risk for COVID-19 are in a state of rapid change based on information released by regulatory bodies including the CDC and federal and state organizations. These policies and algorithms were followed during the patient's care in the ICU Please note that these policies, procedures and recommendations changed on a rapid basis. Subjective Date of service: 06/29/20 Principal diagnosis: ARF/Septic Shock/COVID-19 PNA, AF with RVR Interval history: Patient is seen today for: Ac hypoxemic respiratory failure; COVID-19; Severe Sepsis with shock; Zackery. pneumonia; GIRISH; Elevated liver enzymes; Obesity Seen and examined at bedside; 24hour events reviewed; nursing and respiratory care staff consulted; no adverse overnight events reported to me; resting in bed; remains on MVS; now back on vasopressors; oxygenation is improved somewhat; still with hyperkalemia and for HD/UF today; had a good BM and tolerating tube feeds better now Objective Vital Signs - 12hr 06/28/20 06/29/20 06/29/20 23:57 00:00 00:09 Temperature 98.9 F Pulse Rate 82 100 H Pulse Rate [ From Monitor] Respiratory 30 H Rate Blood Pressure 96/48 96/48 O2 Sat by Pulse 97 97 Oximetry 06/29/20 06/29/20 06/29/20 00:15 00:30 00:45 Temperature Pulse Rate 91 H 94 H 93 H Pulse Rate [ From Monitor] Respiratory 30 H 30 H 30 H Rate Blood Pressure 96/48 98/52 98/52 O2 Sat by Pulse 96 97 99 Oximetry 06/29/20 06/29/20 06/29/20 01:00 01:15 01:30 Temperature Pulse Rate 91 H 95 H 86 Pulse Rate [ From Monitor] Respiratory 30 H 30 H 31 H Rate Blood Pressure 92/47 92/47 101/48 O2 Sat by Pulse 98 98 98 Oximetry 06/29/20 06/29/20 06/29/20 01:45 02:00 02:15 Temperature Pulse Rate 98 H 94 H 89 Pulse Rate [ From Monitor] Respiratory 30 H 30 H 30 H Rate Blood Pressure 101/48 96/49 96/49 O2 Sat by Pulse 98 98 97 Oximetry 06/29/20 06/29/20 06/29/20 02:30 02:45 03:00 Temperature Pulse Rate 96 H 96 H 92 H Pulse Rate [ From Monitor] Respiratory 28 H 30 H 30 H Rate Blood Pressure 88/48 88/48 87/52 O2 Sat by Pulse 97 98 97 Oximetry 06/29/20 06/29/20 06/29/20 03:15 03:31 03:45 Temperature Pulse Rate 84 94 H 89 Pulse Rate [ From Monitor] Respiratory 30 H 30 H 30 H Rate Blood Pressure 87/52 127/52 127/52 O2 Sat by Pulse 99 99 98 Oximetry 06/29/20 06/29/20 06/29/20 04:00 04:15 04:30 Temperature 98.8 F Pulse Rate 96 H 111 H 107 H Pulse Rate [ From Monitor] Respiratory 24 18 30 H Rate Blood Pressure 127/52 149/68 O2 Sat by Pulse 98 97 97 Oximetry 06/29/20 06/29/20 06/29/20 04:44 04:45 05:01 Temperature Pulse Rate 100 H 97 H 100 H Pulse Rate [ From Monitor] Respiratory 27 H 30 H Rate Blood Pressure 149/68 149/68 138/53 O2 Sat by Pulse 96 97 100 Oximetry 06/29/20 06/29/20 06/29/20 05:15 05:31 05:45 Temperature Pulse Rate 101 H 102 H 104 H Pulse Rate [ From Monitor] Respiratory 30 H 30 H 30 H Rate Blood Pressure 138/53 108/47 108/47 O2 Sat by Pulse 98 98 100 Oximetry 06/29/20 06/29/20 06/29/20 06:00 06:15 06:30 Temperature Pulse Rate 96 H 94 H 111 H Pulse Rate [ From Monitor] Respiratory 30 H 30 H 31 H Rate Blood Pressure 108/47 95/47 106/46 O2 Sat by Pulse 100 100 100 Oximetry 06/29/20 06/29/20 06/29/20 06:45 07:00 07:15 Temperature Pulse Rate 106 H 92 H 103 H Pulse Rate [ From Monitor] Respiratory 30 H 30 H 30 H Rate Blood Pressure 106/46 104/46 104/46 O2 Sat by Pulse 100 100 100 Oximetry 06/29/20 06/29/20 06/29/20 07:30 07:45 07:58 Temperature Pulse Rate 99 H 96 H Pulse Rate [ 106 H From Monitor] Respiratory 30 H 30 H 30 H Rate Blood Pressure 104/49 104/49 O2 Sat by Pulse 100 100 100 Oximetry 06/29/20 06/29/20 08:00 08:32 Temperature 99.2 F Pulse Rate 100 H 95 H Pulse Rate [ From Monitor] Respiratory 31 H Rate Blood Pressure 92/46 97/49 O2 Sat by Pulse 99 97 Oximetry Constitutional: appears uncomfortable, other (morbidly obese, atraumatic, normocephalic, mild resp distress, orally intuabted) Eyes: non-icteric ENT: oropharynx moist, other (ETT 24 cm TROY) Neck: supple, no lymphadenopathy, other (Large , short neck) Effort: mildly labored Ascultation: Bilateral: rhonchi (scant) Percussion: Bilateral: not dull Cardiovascular: irregular rhythm, other (S1,S2) Gastrointestinal: normoactive bowel sounds, non-distended (protuberant), other (OG Tube) Integumentary: rash, other (Femoral CVC, Newell catheter) Extremities: no edema, pink and warm, pulses normal, no ischemia or petechiae, edema (trace to 1+) Neurologic: non-focal exam (grossly), pupils equal and round, other (unable to assess, sedated) Psychiatric: other (unable to assess, sedated) CBC and BMP: 06/28/20 10:03 06/29/20 03:45 ABG, PT/INR, D-dimer: ABG ABG pH 7.369 (7.320-7.450) 06/29/20 03:15 POC ABG pCO2 37.3 mmHg (32.0-48.0) 06/29/20 03:15 POC ABG pO2 95.5 mmHg (83-108) 06/29/20 03:15 POC ABG HCO3 21 06/29/20 03:15 PT/INR, D-dimer PT 17.4 Sec. (12.2-14.9) H 06/26/20 05:47 INR 1.44 (0.87-1.13) H 06/26/20 05:47 D-Dimer 939.89 ng/mlDDU (0-234) H 06/17/20 14:48 Abnormal lab findings: Abnormal Labs 06/17/20 06/17/20 06/17/20 12:33 12:33 12:33 WBC 19.5 H RBC 5.18 H Hgb 15.5 H Hct RDW Lymph % (Auto) 3.8 L Lymph # (Auto) 0.7 L [place] # (Auto) Seg Neuts % (Manual) 99.0 H Lymphocytes % (Manual) 1.0 L Nucleated RBC % Seg Neutrophils # 18.2 H Seg Neutrophils # Man 19.3 H Lymphocytes # (Manual) 0.2 L Monocytes # (Manual) PT 16.5 H INR 1.33 H APTT D-Dimer 1025.04 H Heparin Anti-Xa Level ABG pH POC ABG pCO2 POC ABG pO2 ABG Hemoglobin ABG Oxyhemoglobin ABG Sodium ABG Potassium ABG Chloride ABG Glucose Carboxyhemoglobin Sodium 130 L Potassium 3.4 L Chloride 95.0 L Carbon Dioxide BUN 21 H Creatinine Glucose 137 H POC Glucose Lactic Acid Calcium 7.9 L Magnesium Ferritin AST 84 H ALT 67 H Lactate Dehydrogenase 437 H Total Creatine Kinase 310 H C-Reactive Protein 27.90 H Total Protein Albumin 2.9 L Triglycerides Arterial Blood Glucose Arterial Blood Ionized Calcium Urine Creatinine Urine Chloride Vancomycin Trough Coronavirus (PCR) 06/17/20 06/17/20 06/17/20 12:33 12:33 14:48 WBC RBC Hgb Hct RDW Lymph % (Auto) Lymph # (Auto) [place] # (Auto) Seg Neuts % (Manual) Lymphocytes % (Manual) Nucleated RBC % Seg Neutrophils # Seg Neutrophils # Man Lymphocytes # (Manual) Monocytes # (Manual) PT INR APTT D-Dimer Heparin Anti-Xa Level ABG pH POC ABG pCO2 POC ABG pO2 ABG Hemoglobin ABG Oxyhemoglobin ABG Sodium ABG Potassium ABG Chloride ABG Glucose Carboxyhemoglobin Sodium Potassium Chloride Carbon Dioxide BUN Creatinine Glucose POC Glucose Lactic Acid 2.50 H* 2.20 H* Calcium Magnesium Ferritin 2297.0 H AST ALT Lactate Dehydrogenase Total Creatine Kinase C-Reactive Protein Total Protein Albumin Triglycerides Arterial Blood Glucose Arterial Blood Ionized Calcium Urine Creatinine Urine Chloride Vancomycin Trough Coronavirus (PCR) 06/17/20 06/17/20 06/17/20 14:48 14:48 14:48 WBC RBC Hgb Hct RDW Lymph % (Auto) Lymph # (Auto) [place] # (Auto) Seg Neuts % (Manual) Lymphocytes % (Manual) Nucleated RBC % Seg Neutrophils # Seg Neutrophils # Man Lymphocytes # (Manual) Monocytes # (Manual) PT INR APTT D-Dimer 939.89 H Heparin Anti-Xa Level ABG pH POC ABG pCO2 POC ABG pO2 ABG Hemoglobin ABG Oxyhemoglobin ABG Sodium ABG Potassium ABG Chloride ABG Glucose Carboxyhemoglobin Sodium Potassium Chloride Carbon Dioxide BUN Creatinine Glucose 141 H POC Glucose Lactic Acid Calcium Magnesium Ferritin > 2000.0 H AST ALT Lactate Dehydrogenase 503 H Total Creatine Kinase C-Reactive Protein 24.70 H Total Protein Albumin Triglycerides Arterial Blood Glucose Arterial Blood Ionized Calcium Urine Creatinine Urine Chloride Vancomycin Trough Coronavirus (PCR) 06/17/20 06/17/20 06/17/20 16:54 19:39 23:43 WBC RBC Hgb Hct RDW Lymph % (Auto) Lymph # (Auto) [place] # (Auto) Seg Neuts % (Manual) Lymphocytes % (Manual) Nucleated RBC % Seg Neutrophils # Seg Neutrophils # Man Lymphocytes # (Manual) Monocytes # (Manual) PT INR APTT D-Dimer Heparin Anti-Xa Level ABG pH 7.571 H POC ABG pCO2 24.3 L POC ABG pO2 41.6 L ABG Hemoglobin ABG Oxyhemoglobin 84.0 L ABG Sodium 131.0 L ABG Potassium ABG Chloride ABG Glucose 163 H Carboxyhemoglobin Sodium Potassium Chloride Carbon Dioxide BUN Creatinine Glucose POC Glucose 185 H Lactic Acid 2.10 H* Calcium Magnesium Ferritin AST ALT Lactate Dehydrogenase Total Creatine Kinase C-Reactive Protein Total Protein Albumin Triglycerides Arterial Blood Glucose 163 H Arterial Blood Ionized Calcium 4.4 L Urine Creatinine Urine Chloride Vancomycin Trough Coronavirus (PCR) 06/18/20 06/18/20 06/18/20 00:17 00:23 03:55 WBC RBC Hgb Hct RDW Lymph % (Auto) Lymph # (Auto) [place] # (Auto) Seg Neuts % (Manual) Lymphocytes % (Manual) Nucleated RBC % Seg Neutrophils # Seg Neutrophils # Man Lymphocytes # (Manual) Monocytes # (Manual) PT INR APTT D-Dimer Heparin Anti-Xa Level ABG pH POC ABG pCO2 POC ABG pO2 56.5 L 48.3 L ABG Hemoglobin ABG Oxyhemoglobin 86.3 L 81.7 L ABG Sodium 132.9 L 131.0 L ABG Potassium ABG Chloride ABG Glucose 189 H 161 H Carboxyhemoglobin 0.4 L Sodium Potassium Chloride Carbon Dioxide BUN Creatinine Glucose POC Glucose Lactic Acid 3.80 H* Calcium Magnesium Ferritin AST ALT Lactate Dehydrogenase Total Creatine Kinase C-Reactive Protein Total Protein Albumin Triglycerides Arterial Blood Glucose 189 H 161 H Arterial Blood Ionized Calcium 4.3 L 4.2 L Urine Creatinine Urine Chloride Vancomycin Trough Coronavirus (PCR) 06/18/20 06/18/20 06/18/20 05:39 05:39 05:39 WBC 26.2 H RBC Hgb Hct RDW Lymph % (Auto) Lymph # (Auto) [place] # (Auto) Seg Neuts % (Manual) 90.0 H Lymphocytes % (Manual) 5.0 L Nucleated RBC % Seg Neutrophils # Seg Neutrophils # Man 23.6 H Lymphocytes # (Manual) Monocytes # (Manual) 1.3 H PT INR APTT D-Dimer Heparin Anti-Xa Level ABG pH POC ABG pCO2 POC ABG pO2 ABG Hemoglobin ABG Oxyhemoglobin ABG Sodium ABG Potassium ABG Chloride ABG Glucose Carboxyhemoglobin Sodium 135 L Potassium Chloride 97.5 L Carbon Dioxide 21 L BUN 39 H Creatinine 1.7 H D Glucose 168 H POC Glucose Lactic Acid 3.40 H* Calcium 7.2 L Magnesium Ferritin AST ALT Lactate Dehydrogenase Total Creatine Kinase C-Reactive Protein Total Protein Albumin Triglycerides Arterial Blood Glucose Arterial Blood Ionized Calcium Urine Creatinine Urine Chloride Vancomycin Trough Coronavirus (PCR) 06/18/20 06/18/20 06/18/20 07:24 09:00 10:10 WBC RBC Hgb Hct RDW Lymph % (Auto) Lymph # (Auto) [place] # (Auto) Seg Neuts % (Manual) Lymphocytes % (Manual) Nucleated RBC % Seg Neutrophils # Seg Neutrophils # Man Lymphocytes # (Manual) Monocytes # (Manual) PT INR APTT D-Dimer Heparin Anti-Xa Level ABG pH POC ABG pCO2 POC ABG pO2 ABG Hemoglobin ABG Oxyhemoglobin ABG Sodium ABG Potassium ABG Chloride ABG Glucose Carboxyhemoglobin Sodium Potassium Chloride Carbon Dioxide BUN Creatinine Glucose POC Glucose Lactic Acid 2.90 H* 3.20 H* Calcium Magnesium Ferritin AST ALT Lactate Dehydrogenase Total Creatine Kinase C-Reactive Protein Total Protein Albumin Triglycerides Arterial Blood Glucose Arterial Blood Ionized Calcium Urine Creatinine Urine Chloride Vancomycin Trough Coronavirus (PCR) Positive A 06/18/20 06/18/20 06/18/20 11:58 14:43 15:00 WBC RBC Hgb Hct RDW Lymph % (Auto) Lymph # (Auto) [place] # (Auto) Seg Neuts % (Manual) Lymphocytes % (Manual) Nucleated RBC % Seg Neutrophils # Seg Neutrophils # Man Lymphocytes # (Manual) Monocytes # (Manual) PT INR APTT D-Dimer Heparin Anti-Xa Level ABG pH 7.303 L POC ABG pCO2 POC ABG pO2 82.3 L ABG Hemoglobin ABG Oxyhemoglobin ABG Sodium 135.3 L ABG Potassium ABG Chloride ABG Glucose 215 H Carboxyhemoglobin 0.3 L Sodium Potassium Chloride Carbon Dioxide BUN Creatinine Glucose POC Glucose 209 H Lactic Acid Calcium Magnesium Ferritin AST ALT Lactate Dehydrogenase Total Creatine Kinase C-Reactive Protein Total Protein Albumin Triglycerides Arterial Blood Glucose 215 H Arterial Blood Ionized Calcium 4.2 L Urine Creatinine 192.4 H Urine Chloride 31.1 L Vancomycin Trough Coronavirus (PCR) 06/18/20 06/18/20 06/18/20 17:16 19:44 20:33 WBC RBC Hgb Hct RDW Lymph % (Auto) Lymph # (Auto) [place] # (Auto) Seg Neuts % (Manual) Lymphocytes % (Manual) Nucleated RBC % Seg Neutrophils # Seg Neutrophils # Man Lymphocytes # (Manual) Monocytes # (Manual) PT INR APTT D-Dimer Heparin Anti-Xa Level ABG pH POC ABG pCO2 POC ABG pO2 ABG Hemoglobin ABG Oxyhemoglobin ABG Sodium ABG Potassium ABG Chloride ABG Glucose Carboxyhemoglobin Sodium Potassium Chloride Carbon Dioxide BUN Creatinine Glucose POC Glucose 182 H Lactic Acid 3.00 H* Calcium Magnesium 2.70 H Ferritin AST ALT Lactate Dehydrogenase Total Creatine Kinase C-Reactive Protein Total Protein Albumin Triglycerides Arterial Blood Glucose Arterial Blood Ionized Calcium Urine Creatinine Urine Chloride Vancomycin Trough Coronavirus (PCR) 06/18/20 06/19/20 06/19/20 23:43 04:00 04:00 WBC 31.6 H RBC Hgb Hct RDW Lymph % (Auto) Lymph # (Auto) [place] # (Auto) Seg Neuts % (Manual) 98.0 H Lymphocytes % (Manual) 0.5 L Nucleated RBC % Seg Neutrophils # Seg Neutrophils # Man 31.0 H Lymphocytes # (Manual) 0.2 L Monocytes # (Manual) PT INR APTT D-Dimer Heparin Anti-Xa Level ABG pH POC ABG pCO2 POC ABG pO2 ABG Hemoglobin ABG Oxyhemoglobin ABG Sodium ABG Potassium ABG Chloride ABG Glucose Carboxyhemoglobin Sodium Potassium Chloride Carbon Dioxide BUN 56 H Creatinine 1.6 H Glucose 176 H POC Glucose 149 H Lactic Acid Calcium 7.0 L Magnesium Ferritin AST 244 H ALT 159 H Lactate Dehydrogenase Total Creatine Kinase C-Reactive Protein Total Protein 4.9 L D Albumin 2.5 L Triglycerides Arterial Blood Glucose Arterial Blood Ionized Calcium Urine Creatinine Urine Chloride Vancomycin Trough Coronavirus (PCR) 06/19/20 06/19/20 06/19/20 04:00 05:44 11:42 WBC RBC Hgb Hct RDW Lymph % (Auto) Lymph # (Auto) [place] # (Auto) Seg Neuts % (Manual) Lymphocytes % (Manual) Nucleated RBC % Seg Neutrophils # Seg Neutrophils # Man Lymphocytes # (Manual) Monocytes # (Manual) PT INR APTT D-Dimer Heparin Anti-Xa Level ABG pH 7.265 L POC ABG pCO2 51.8 H POC ABG pO2 65.1 L ABG Hemoglobin ABG Oxyhemoglobin ABG Sodium ABG Potassium ABG Chloride ABG Glucose 184 H Carboxyhemoglobin Sodium Potassium Chloride Carbon Dioxide BUN Creatinine Glucose POC Glucose 156 H 191 H Lactic Acid Calcium Magnesium Ferritin AST ALT Lactate Dehydrogenase Total Creatine Kinase C-Reactive Protein Total Protein Albumin Triglycerides Arterial Blood Glucose 184 H Arterial Blood Ionized Calcium 4.3 L Urine Creatinine Urine Chloride Vancomycin Trough Coronavirus (PCR) 06/19/20 06/19/20 06/19/20 12:30 17:16 18:36 WBC RBC Hgb Hct RDW Lymph % (Auto) Lymph # (Auto) [place] # (Auto) Seg Neuts % (Manual) Lymphocytes % (Manual) Nucleated RBC % Seg Neutrophils # Seg Neutrophils # Man Lymphocytes # (Manual) Monocytes # (Manual) PT 16.4 H INR 1.32 H APTT D-Dimer Heparin Anti-Xa Level ABG pH 7.088 L POC ABG pCO2 78.1 H POC ABG pO2 208.3 H ABG Hemoglobin ABG Oxyhemoglobin 98.3 H ABG Sodium ABG Potassium 5.0 H ABG Chloride ABG Glucose 182 H Carboxyhemoglobin 0.4 L Sodium Potassium Chloride Carbon Dioxide BUN Creatinine Glucose POC Glucose 154 H Lactic Acid Calcium Magnesium Ferritin AST ALT Lactate Dehydrogenase Total Creatine Kinase C-Reactive Protein Total Protein Albumin Triglycerides Arterial Blood Glucose 182 H Arterial Blood Ionized Calcium 4.3 L Urine Creatinine Urine Chloride Vancomycin Trough Coronavirus (PCR) 06/19/20 06/20/20 06/20/20 23:32 03:00 05:19 WBC RBC Hgb Hct RDW Lymph % (Auto) Lymph # (Auto) [place] # (Auto) Seg Neuts % (Manual) Lymphocytes % (Manual) Nucleated RBC % Seg Neutrophils # Seg Neutrophils # Man Lymphocytes # (Manual) Monocytes # (Manual) PT INR APTT D-Dimer Heparin Anti-Xa Level 0.77 H ABG pH POC ABG pCO2 POC ABG pO2 ABG Hemoglobin ABG Oxyhemoglobin ABG Sodium ABG Potassium ABG Chloride ABG Glucose Carboxyhemoglobin Sodium Potassium Chloride Carbon Dioxide BUN Creatinine Glucose POC Glucose 201 H 190 H Lactic Acid Calcium Magnesium Ferritin AST ALT Lactate Dehydrogenase Total Creatine Kinase C-Reactive Protein Total Protein Albumin Triglycerides Arterial Blood Glucose Arterial Blood Ionized Calcium Urine Creatinine Urine Chloride Vancomycin Trough Coronavirus (PCR) 06/20/20 06/20/20 06/20/20 08:25 08:25 11:36 WBC RBC Hgb Hct RDW Lymph % (Auto) Lymph # (Auto) [place] # (Auto) Seg Neuts % (Manual) Lymphocytes % (Manual) Nucleated RBC % Seg Neutrophils # Seg Neutrophils # Man Lymphocytes # (Manual) Monocytes # (Manual) PT INR APTT D-Dimer Heparin Anti-Xa Level ABG pH POC ABG pCO2 POC ABG pO2 ABG Hemoglobin ABG Oxyhemoglobin ABG Sodium ABG Potassium ABG Chloride ABG Glucose Carboxyhemoglobin Sodium 135 L Potassium 5.4 H Chloride 109.2 H Carbon Dioxide 19 L BUN 68 H Creatinine 2.5 H D Glucose 201 H POC Glucose 184 H Lactic Acid Calcium 5.5 L* D Magnesium Ferritin AST 123 H ALT 86 H Lactate Dehydrogenase Total Creatine Kinase C-Reactive Protein Total Protein 4.6 L Albumin 1.5 L Triglycerides Arterial Blood Glucose Arterial Blood Ionized Calcium Urine Creatinine Urine Chloride Vancomycin Trough 22.7 H Coronavirus (PCR) 06/20/20 06/20/20 06/20/20 11:40 17:28 20:00 WBC RBC Hgb Hct RDW Lymph % (Auto) Lymph # (Auto) [place] # (Auto) Seg Neuts % (Manual) Lymphocytes % (Manual) Nucleated RBC % Seg Neutrophils # Seg Neutrophils # Man Lymphocytes # (Manual) Monocytes # (Manual) PT INR APTT D-Dimer Heparin Anti-Xa Level 0.89 H ABG pH 7.099 L POC ABG pCO2 61.1 H POC ABG pO2 ABG Hemoglobin ABG Oxyhemoglobin ABG Sodium ABG Potassium 5.0 H ABG Chloride 111.0 H ABG Glucose 200 H Carboxyhemoglobin 0.4 L Sodium Potassium Chloride Carbon Dioxide BUN Creatinine Glucose POC Glucose 165 H Lactic Acid Calcium Magnesium Ferritin AST ALT Lactate Dehydrogenase Total Creatine Kinase C-Reactive Protein Total Protein Albumin Triglycerides Arterial Blood Glucose 200 H Arterial Blood Ionized Calcium 4.2 L Urine Creatinine Urine Chloride Vancomycin Trough Coronavirus (PCR) 06/20/20 06/21/20 06/21/20 23:29 05:00 05:20 WBC RBC Hgb Hct RDW Lymph % (Auto) Lymph # (Auto) [place] # (Auto) Seg Neuts % (Manual) Lymphocytes % (Manual) Nucleated RBC % Seg Neutrophils # Seg Neutrophils # Man Lymphocytes # (Manual) Monocytes # (Manual) PT INR APTT D-Dimer Heparin Anti-Xa Level ABG pH POC ABG pCO2 POC ABG pO2 ABG Hemoglobin ABG Oxyhemoglobin ABG Sodium ABG Potassium ABG Chloride ABG Glucose Carboxyhemoglobin Sodium Potassium Chloride 112.0 H Carbon Dioxide 20 L BUN 92 H Creatinine 3.9 H D Glucose 214 H POC Glucose 145 H 191 H Lactic Acid Calcium 6.5 L D Magnesium Ferritin AST 98 H ALT 84 H Lactate Dehydrogenase Total Creatine Kinase C-Reactive Protein Total Protein 4.6 L Albumin 2.1 L Triglycerides 180 H Arterial Blood Glucose Arterial Blood Ionized Calcium Urine Creatinine Urine Chloride Vancomycin Trough Coronavirus (PCR) 06/21/20 06/21/20 06/21/20 08:56 11:12 12:43 WBC RBC Hgb Hct RDW Lymph % (Auto) Lymph # (Auto) [place] # (Auto) Seg Neuts % (Manual) Lymphocytes % (Manual) Nucleated RBC % Seg Neutrophils # Seg Neutrophils # Man Lymphocytes # (Manual) Monocytes # (Manual) PT INR APTT D-Dimer Heparin Anti-Xa Level 0.28 L ABG pH 7.184 L POC ABG pCO2 48.3 H POC ABG pO2 172.1 H ABG Hemoglobin ABG Oxyhemoglobin 98.7 H ABG Sodium ABG Potassium 4.9 H ABG Chloride 112.0 H ABG Glucose 196 H Carboxyhemoglobin 0.2 L Sodium Potassium Chloride Carbon Dioxide BUN Creatinine Glucose POC Glucose 177 H Lactic Acid Calcium Magnesium Ferritin AST ALT Lactate Dehydrogenase Total Creatine Kinase C-Reactive Protein Total Protein Albumin Triglycerides Arterial Blood Glucose 196 H Arterial Blood Ionized Calcium 4.1 L Urine Creatinine Urine Chloride Vancomycin Trough Coronavirus (PCR) 06/21/20 06/21/20 06/22/20 16:31 Unknown 00:12 WBC RBC Hgb Hct RDW Lymph % (Auto) Lymph # (Auto) [place] # (Auto) Seg Neuts % (Manual) Lymphocytes % (Manual) Nucleated RBC % Seg Neutrophils # Seg Neutrophils # Man Lymphocytes # (Manual) Monocytes # (Manual) PT INR APTT D-Dimer Heparin Anti-Xa Level 0.78 H ABG pH POC ABG pCO2 POC ABG pO2 ABG Hemoglobin ABG Oxyhemoglobin ABG Sodium ABG Potassium ABG Chloride ABG Glucose Carboxyhemoglobin Sodium Potassium Chloride Carbon Dioxide BUN Creatinine Glucose POC Glucose 150 H 173 H Lactic Acid Calcium Magnesium Ferritin AST ALT Lactate Dehydrogenase Total Creatine Kinase C-Reactive Protein Total Protein Albumin Triglycerides Arterial Blood Glucose Arterial Blood Ionized Calcium Urine Creatinine Urine Chloride Vancomycin Trough Coronavirus (PCR) 06/22/20 06/22/20 06/22/20 04:00 05:04 05:30 WBC 33.9 H RBC Hgb 11.7 L Hct 35.2 L RDW 15.8 H Lymph % (Auto) Lymph # (Auto) [place] # (Auto) Seg Neuts % (Manual) 93.0 H Lymphocytes % (Manual) 5.0 L Nucleated RBC % Seg Neutrophils # Seg Neutrophils # Man 31.5 H Lymphocytes # (Manual) Monocytes # (Manual) PT INR APTT D-Dimer Heparin Anti-Xa Level ABG pH 7.169 L POC ABG pCO2 POC ABG pO2 ABG Hemoglobin ABG Oxyhemoglobin ABG Sodium ABG Potassium 5.1 H ABG Chloride 112.0 H ABG Glucose 186 H Carboxyhemoglobin 0.3 L Sodium Potassium Chloride Carbon Dioxide BUN Creatinine Glucose POC Glucose 161 H Lactic Acid Calcium Magnesium Ferritin AST ALT Lactate Dehydrogenase Total Creatine Kinase C-Reactive Protein Total Protein Albumin Triglycerides Arterial Blood Glucose 186 H Arterial Blood Ionized Calcium 4.1 L Urine Creatinine Urine Chloride Vancomycin Trough Coronavirus (PCR) 06/22/20 06/22/20 06/22/20 05:30 11:39 13:27 WBC RBC Hgb Hct RDW Lymph % (Auto) Lymph # (Auto) [place] # (Auto) Seg Neuts % (Manual) Lymphocytes % (Manual) Nucleated RBC % Seg Neutrophils # Seg Neutrophils # Man Lymphocytes # (Manual) Monocytes # (Manual) PT INR APTT D-Dimer Heparin Anti-Xa Level ABG pH POC ABG pCO2 POC ABG pO2 ABG Hemoglobin ABG Oxyhemoglobin ABG Sodium ABG Potassium ABG Chloride ABG Glucose Carboxyhemoglobin Sodium Potassium 5.7 H Chloride 111.3 H Carbon Dioxide 18 L BUN 112 H Creatinine 5.0 H Glucose 173 H POC Glucose 172 H 176 H Lactic Acid Calcium 6.7 L Magnesium Ferritin AST ALT Lactate Dehydrogenase Total Creatine Kinase C-Reactive Protein Total Protein Albumin Triglycerides Arterial Blood Glucose Arterial Blood Ionized Calcium Urine Creatinine Urine Chloride Vancomycin Trough Coronavirus (PCR) 06/22/20 06/22/20 06/22/20 14:37 17:00 17:40 WBC RBC Hgb Hct RDW Lymph % (Auto) Lymph # (Auto) [place] # (Auto) Seg Neuts % (Manual) Lymphocytes % (Manual) Nucleated RBC % Seg Neutrophils # Seg Neutrophils # Man Lymphocytes # (Manual) Monocytes # (Manual) PT INR APTT D-Dimer Heparin Anti-Xa Level 1.32 H ABG pH POC ABG pCO2 POC ABG pO2 ABG Hemoglobin ABG Oxyhemoglobin ABG Sodium ABG Potassium ABG Chloride ABG Glucose Carboxyhemoglobin Sodium Potassium Chloride Carbon Dioxide BUN Creatinine Glucose POC Glucose 171 H Lactic Acid Calcium Magnesium Ferritin AST ALT Lactate Dehydrogenase Total Creatine Kinase C-Reactive Protein 5.30 H Total Protein Albumin Triglycerides Arterial Blood Glucose Arterial Blood Ionized Calcium Urine Creatinine Urine Chloride Vancomycin Trough Coronavirus (PCR) 06/22/20 06/23/20 06/23/20 23:36 02:13 02:41 WBC RBC Hgb Hct RDW Lymph % (Auto) Lymph # (Auto) [place] # (Auto) Seg Neuts % (Manual) Lymphocytes % (Manual) Nucleated RBC % Seg Neutrophils # Seg Neutrophils # Man Lymphocytes # (Manual) Monocytes # (Manual) PT INR APTT D-Dimer Heparin Anti-Xa Level 0.21 L ABG pH 7.318 L POC ABG pCO2 POC ABG pO2 157.5 H ABG Hemoglobin ABG Oxyhemoglobin ABG Sodium 135.6 L ABG Potassium 4.6 H ABG Chloride 110.0 H ABG Glucose 169 H Carboxyhemoglobin Sodium Potassium Chloride Carbon Dioxide BUN Creatinine Glucose POC Glucose 155 H Lactic Acid Calcium Magnesium Ferritin AST ALT Lactate Dehydrogenase Total Creatine Kinase C-Reactive Protein Total Protein Albumin Triglycerides Arterial Blood Glucose 169 H Arterial Blood Ionized Calcium Urine Creatinine Urine Chloride Vancomycin Trough Coronavirus (PCR) 06/23/20 06/23/20 06/23/20 04:00 04:00 05:24 WBC 27.4 H RBC Hgb 11.3 L Hct 33.8 L RDW Lymph % (Auto) Lymph # (Auto) [place] # (Auto) Seg Neuts % (Manual) 93.0 H Lymphocytes % (Manual) 1.0 L Nucleated RBC % 1.0 H Seg Neutrophils # Seg Neutrophils # Man 25.5 H Lymphocytes # (Manual) 0.3 L Monocytes # (Manual) 1.1 H PT INR APTT D-Dimer Heparin Anti-Xa Level ABG pH POC ABG pCO2 POC ABG pO2 ABG Hemoglobin ABG Oxyhemoglobin ABG Sodium ABG Potassium ABG Chloride ABG Glucose Carboxyhemoglobin Sodium Potassium Chloride 107.6 H Carbon Dioxide 20 L BUN 100 H Creatinine 4.7 H Glucose 168 H POC Glucose 151 H Lactic Acid Calcium Magnesium Ferritin AST ALT Lactate Dehydrogenase Total Creatine Kinase C-Reactive Protein Total Protein Albumin Triglycerides Arterial Blood Glucose Arterial Blood Ionized Calcium Urine Creatinine Urine Chloride Vancomycin Trough Coronavirus (PCR) 06/23/20 06/23/20 06/23/20 11:30 17:18 23:50 WBC RBC Hgb Hct RDW Lymph % (Auto) Lymph # (Auto) [place] # (Auto) Seg Neuts % (Manual) Lymphocytes % (Manual) Nucleated RBC % Seg Neutrophils # Seg Neutrophils # Man Lymphocytes # (Manual) Monocytes # (Manual) PT INR APTT D-Dimer Heparin Anti-Xa Level ABG pH POC ABG pCO2 POC ABG pO2 ABG Hemoglobin ABG Oxyhemoglobin ABG Sodium ABG Potassium ABG Chloride ABG Glucose Carboxyhemoglobin Sodium Potassium Chloride Carbon Dioxide BUN Creatinine Glucose POC Glucose 157 H 156 H 162 H Lactic Acid Calcium Magnesium Ferritin AST ALT Lactate Dehydrogenase Total Creatine Kinase C-Reactive Protein Total Protein Albumin Triglycerides Arterial Blood Glucose Arterial Blood Ionized Calcium Urine Creatinine Urine Chloride Vancomycin Trough Coronavirus (PCR) 06/24/20 06/24/20 06/24/20 04:41 05:57 06:30 WBC 34.3 H RBC Hgb 10.9 L Hct 32.6 L RDW Lymph % (Auto) 2.0 L Lymph # (Auto) 0.7 L [place] # (Auto) 1.2 H Seg Neuts % (Manual) 96.0 H Lymphocytes % (Manual) 3.0 L Nucleated RBC % Seg Neutrophils # 32.3 H Seg Neutrophils # Man 32.9 H Lymphocytes # (Manual) 1.0 L Monocytes # (Manual) PT INR APTT D-Dimer Heparin Anti-Xa Level ABG pH POC ABG pCO2 POC ABG pO2 71.1 L ABG Hemoglobin ABG Oxyhemoglobin 92.4 L ABG Sodium 115.6 L ABG Potassium ABG Chloride ABG Glucose 159 H Carboxyhemoglobin Sodium Potassium Chloride Carbon Dioxide BUN Creatinine Glucose POC Glucose 143 H Lactic Acid Calcium Magnesium Ferritin AST ALT Lactate Dehydrogenase Total Creatine Kinase C-Reactive Protein Total Protein Albumin Triglycerides Arterial Blood Glucose 159 H Arterial Blood Ionized Calcium 4.2 L Urine Creatinine Urine Chloride Vancomycin Trough Coronavirus (PCR) 06/24/20 06/24/20 06/24/20 07:03 09:37 11:56 WBC RBC Hgb Hct RDW Lymph % (Auto) Lymph # (Auto) [place] # (Auto) Seg Neuts % (Manual) Lymphocytes % (Manual) Nucleated RBC % Seg Neutrophils # Seg Neutrophils # Man Lymphocytes # (Manual) Monocytes # (Manual) PT INR APTT D-Dimer Heparin Anti-Xa Level 0.26 L ABG pH POC ABG pCO2 POC ABG pO2 ABG Hemoglobin ABG Oxyhemoglobin ABG Sodium ABG Potassium ABG Chloride ABG Glucose Carboxyhemoglobin Sodium Potassium 5.1 H Chloride Carbon Dioxide BUN 103 H Creatinine 5.0 H Glucose 163 H POC Glucose 149 H Lactic Acid Calcium 7.6 L Magnesium Ferritin AST ALT Lactate Dehydrogenase Total Creatine Kinase C-Reactive Protein Total Protein Albumin Triglycerides Arterial Blood Glucose Arterial Blood Ionized Calcium Urine Creatinine Urine Chloride Vancomycin Trough Coronavirus (PCR) 06/24/20 06/25/20 06/25/20 18:09 01:05 03:00 WBC RBC Hgb 10.6 L Hct 32.1 L RDW Lymph % (Auto) Lymph # (Auto) [place] # (Auto) Seg Neuts % (Manual) Lymphocytes % (Manual) Nucleated RBC % Seg Neutrophils # Seg Neutrophils # Man Lymphocytes # (Manual) Monocytes # (Manual) PT INR APTT D-Dimer Heparin Anti-Xa Level ABG pH POC ABG pCO2 POC ABG pO2 ABG Hemoglobin ABG Oxyhemoglobin ABG Sodium ABG Potassium ABG Chloride ABG Glucose Carboxyhemoglobin Sodium Potassium Chloride Carbon Dioxide BUN Creatinine Glucose POC Glucose 141 H 137 H Lactic Acid Calcium Magnesium Ferritin AST ALT Lactate Dehydrogenase Total Creatine Kinase C-Reactive Protein Total Protein Albumin Triglycerides Arterial Blood Glucose Arterial Blood Ionized Calcium Urine Creatinine Urine Chloride Vancomycin Trough Coronavirus (PCR) 06/25/20 06/25/20 06/25/20 03:48 05:17 12:08 WBC RBC Hgb Hct RDW Lymph % (Auto) Lymph # (Auto) [place] # (Auto) Seg Neuts % (Manual) Lymphocytes % (Manual) Nucleated RBC % Seg Neutrophils # Seg Neutrophils # Man Lymphocytes # (Manual) Monocytes # (Manual) PT INR APTT D-Dimer Heparin Anti-Xa Level ABG pH POC ABG pCO2 29.4 L POC ABG pO2 67.1 L ABG Hemoglobin 11.5 L ABG Oxyhemoglobin ABG Sodium 124.1 L ABG Potassium 4.6 H ABG Chloride ABG Glucose 159 H Carboxyhemoglobin Sodium Potassium Chloride Carbon Dioxide BUN Creatinine Glucose POC Glucose 149 H 150 H Lactic Acid Calcium Magnesium Ferritin AST ALT Lactate Dehydrogenase Total Creatine Kinase C-Reactive Protein Total Protein Albumin Triglycerides Arterial Blood Glucose 159 H Arterial Blood Ionized Calcium 4.2 L Urine Creatinine Urine Chloride Vancomycin Trough Coronavirus (PCR) 06/25/20 06/25/20 06/25/20 16:27 16:35 17:27 WBC RBC Hgb Hct RDW Lymph % (Auto) Lymph # (Auto) [place] # (Auto) Seg Neuts % (Manual) Lymphocytes % (Manual) Nucleated RBC % Seg Neutrophils # Seg Neutrophils # Man Lymphocytes # (Manual) Monocytes # (Manual) PT INR APTT D-Dimer Heparin Anti-Xa Level < 0.10 L ABG pH POC ABG pCO2 POC ABG pO2 ABG Hemoglobin ABG Oxyhemoglobin ABG Sodium ABG Potassium ABG Chloride ABG Glucose Carboxyhemoglobin Sodium Potassium Chloride Carbon Dioxide BUN Creatinine Glucose POC Glucose 143 H 156 H Lactic Acid Calcium Magnesium Ferritin AST ALT Lactate Dehydrogenase Total Creatine Kinase C-Reactive Protein Total Protein Albumin Triglycerides Arterial Blood Glucose Arterial Blood Ionized Calcium Urine Creatinine Urine Chloride Vancomycin Trough Coronavirus (PCR) 06/25/20 06/25/20 06/25/20 20:00 20:55 23:10 WBC 32.7 H RBC 3.06 L Hgb 9.0 L 9.5 L Hct 26.7 L 28.6 L RDW Lymph % (Auto) Lymph # (Auto) [place] # (Auto) Seg Neuts % (Manual) Lymphocytes % (Manual) 2.0 L Nucleated RBC % Seg Neutrophils # Seg Neutrophils # Man 30.7 H Lymphocytes # (Manual) 0.7 L Monocytes # (Manual) 1.3 H PT 17.7 H INR 1.47 H APTT 65.8 H* D-Dimer Heparin Anti-Xa Level ABG pH POC ABG pCO2 POC ABG pO2 ABG Hemoglobin ABG Oxyhemoglobin ABG Sodium ABG Potassium ABG Chloride ABG Glucose Carboxyhemoglobin Sodium Potassium Chloride Carbon Dioxide BUN Creatinine Glucose POC Glucose Lactic Acid Calcium Magnesium Ferritin AST ALT Lactate Dehydrogenase Total Creatine Kinase C-Reactive Protein Total Protein Albumin Triglycerides Arterial Blood Glucose Arterial Blood Ionized Calcium Urine Creatinine Urine Chloride Vancomycin Trough Coronavirus (PCR) 06/25/20 06/26/20 06/26/20 23:14 01:30 03:25 WBC RBC Hgb Hct RDW Lymph % (Auto) Lymph # (Auto) [place] # (Auto) Seg Neuts % (Manual) Lymphocytes % (Manual) Nucleated RBC % Seg Neutrophils # Seg Neutrophils # Man Lymphocytes # (Manual) Monocytes # (Manual) PT INR APTT D-Dimer Heparin Anti-Xa Level < 0.10 L ABG pH POC ABG pCO2 POC ABG pO2 ABG Hemoglobin 11.8 L ABG Oxyhemoglobin ABG Sodium 127.1 L ABG Potassium 5.4 H ABG Chloride ABG Glucose 155 H Carboxyhemoglobin 0.3 L Sodium Potassium Chloride Carbon Dioxide BUN Creatinine Glucose POC Glucose 148 H Lactic Acid Calcium Magnesium Ferritin AST ALT Lactate Dehydrogenase Total Creatine Kinase C-Reactive Protein Total Protein Albumin Triglycerides Arterial Blood Glucose 155 H Arterial Blood Ionized Calcium 4.2 L Urine Creatinine Urine Chloride Vancomycin Trough Coronavirus (PCR) 06/26/20 06/26/20 06/26/20 03:59 05:14 05:47 WBC 36.5 H RBC 3.26 L Hgb 9.7 L Hct 28.2 L RDW Lymph % (Auto) Lymph # (Auto) [place] # (Auto) Seg Neuts % (Manual) 92.0 H Lymphocytes % (Manual) 4.0 L Nucleated RBC % Seg Neutrophils # Seg Neutrophils # Man 33.6 H Lymphocytes # (Manual) Monocytes # (Manual) PT INR APTT D-Dimer Heparin Anti-Xa Level ABG pH POC ABG pCO2 POC ABG pO2 ABG Hemoglobin ABG Oxyhemoglobin ABG Sodium ABG Potassium ABG Chloride ABG Glucose Carboxyhemoglobin Sodium Potassium 5.9 H Chloride Carbon Dioxide 20 L BUN 144 H Creatinine 6.4 H Glucose 149 H POC Glucose 128 H Lactic Acid Calcium 7.6 L Magnesium Ferritin AST ALT Lactate Dehydrogenase Total Creatine Kinase C-Reactive Protein Total Protein Albumin Triglycerides Arterial Blood Glucose Arterial Blood Ionized Calcium Urine Creatinine Urine Chloride Vancomycin Trough Coronavirus (PCR) 06/26/20 06/26/20 06/26/20 05:47 12:47 17:42 WBC RBC Hgb Hct RDW Lymph % (Auto) Lymph # (Auto) [place] # (Auto) Seg Neuts % (Manual) Lymphocytes % (Manual) Nucleated RBC % Seg Neutrophils # Seg Neutrophils # Man Lymphocytes # (Manual) Monocytes # (Manual) PT 17.4 H INR 1.44 H APTT D-Dimer Heparin Anti-Xa Level ABG pH POC ABG pCO2 POC ABG pO2 ABG Hemoglobin ABG Oxyhemoglobin ABG Sodium ABG Potassium ABG Chloride ABG Glucose Carboxyhemoglobin Sodium Potassium Chloride Carbon Dioxide BUN Creatinine Glucose POC Glucose 124 H 127 H Lactic Acid Calcium Magnesium Ferritin AST ALT Lactate Dehydrogenase Total Creatine Kinase C-Reactive Protein Total Protein Albumin Triglycerides Arterial Blood Glucose Arterial Blood Ionized Calcium Urine Creatinine Urine Chloride Vancomycin Trough Coronavirus (PCR) 06/26/20 06/27/20 06/27/20 23:30 03:32 04:00 WBC RBC Hgb 8.7 L Hct 26.4 L RDW Lymph % (Auto) Lymph # (Auto) [place] # (Auto) Seg Neuts % (Manual) Lymphocytes % (Manual) Nucleated RBC % Seg Neutrophils # Seg Neutrophils # Man Lymphocytes # (Manual) Monocytes # (Manual) PT INR APTT D-Dimer Heparin Anti-Xa Level ABG pH 7.298 L POC ABG pCO2 POC ABG pO2 ABG Hemoglobin 9.6 L ABG Oxyhemoglobin ABG Sodium 124.4 L ABG Potassium 6.6 H ABG Chloride ABG Glucose 136 H Carboxyhemoglobin Sodium Potassium Chloride Carbon Dioxide BUN Creatinine Glucose POC Glucose 123 H Lactic Acid Calcium Magnesium Ferritin AST ALT Lactate Dehydrogenase Total Creatine Kinase C-Reactive Protein Total Protein Albumin Triglycerides Arterial Blood Glucose 136 H Arterial Blood Ionized Calcium 4.1 L Urine Creatinine Urine Chloride Vancomycin Trough Coronavirus (PCR) 06/27/20 06/27/20 06/27/20 05:26 10:14 11:58 WBC RBC Hgb Hct RDW Lymph % (Auto) Lymph # (Auto) [place] # (Auto) Seg Neuts % (Manual) Lymphocytes % (Manual) Nucleated RBC % Seg Neutrophils # Seg Neutrophils # Man Lymphocytes # (Manual) Monocytes # (Manual) PT INR APTT D-Dimer Heparin Anti-Xa Level ABG pH POC ABG pCO2 POC ABG pO2 ABG Hemoglobin ABG Oxyhemoglobin ABG Sodium ABG Potassium ABG Chloride ABG Glucose Carboxyhemoglobin Sodium 136 L Potassium 7.0 H* Chloride 97.8 L Carbon Dioxide BUN 172 H Creatinine 7.4 H Glucose 129 H POC Glucose 124 H 115 H Lactic Acid Calcium 7.6 L Magnesium Ferritin AST ALT Lactate Dehydrogenase Total Creatine Kinase C-Reactive Protein Total Protein Albumin Triglycerides Arterial Blood Glucose Arterial Blood Ionized Calcium Urine Creatinine Urine Chloride Vancomycin Trough Coronavirus (PCR) 06/27/20 06/27/20 06/27/20 17:32 18:30 23:24 WBC RBC Hgb Hct RDW Lymph % (Auto) Lymph # (Auto) [place] # (Auto) Seg Neuts % (Manual) Lymphocytes % (Manual) Nucleated RBC % Seg Neutrophils # Seg Neutrophils # Man Lymphocytes # (Manual) Monocytes # (Manual) PT INR APTT D-Dimer Heparin Anti-Xa Level ABG pH POC ABG pCO2 POC ABG pO2 ABG Hemoglobin ABG Oxyhemoglobin ABG Sodium ABG Potassium ABG Chloride ABG Glucose Carboxyhemoglobin Sodium Potassium 7.3 H* Chloride Carbon Dioxide BUN Creatinine Glucose POC Glucose 122 H 116 H Lactic Acid Calcium Magnesium Ferritin AST ALT Lactate Dehydrogenase Total Creatine Kinase C-Reactive Protein Total Protein Albumin Triglycerides Arterial Blood Glucose Arterial Blood Ionized Calcium Urine Creatinine Urine Chloride Vancomycin Trough Coronavirus (PCR) 06/28/20 06/28/20 06/28/20 00:00 02:16 05:37 WBC RBC Hgb Hct RDW Lymph % (Auto) Lymph # (Auto) [place] # (Auto) Seg Neuts % (Manual) Lymphocytes % (Manual) Nucleated RBC % Seg Neutrophils # Seg Neutrophils # Man Lymphocytes # (Manual) Monocytes # (Manual) PT INR APTT D-Dimer Heparin Anti-Xa Level ABG pH POC ABG pCO2 POC ABG pO2 79.0 L ABG Hemoglobin 11.7 L ABG Oxyhemoglobin ABG Sodium 128.1 L ABG Potassium 6.6 H ABG Chloride ABG Glucose 124 H Carboxyhemoglobin Sodium Potassium 7.3 H* Chloride Carbon Dioxide BUN Creatinine Glucose POC Glucose 115 H Lactic Acid Calcium Magnesium Ferritin AST ALT Lactate Dehydrogenase Total Creatine Kinase C-Reactive Protein Total Protein Albumin Triglycerides Arterial Blood Glucose 124 H Arterial Blood Ionized Calcium 4.2 L Urine Creatinine Urine Chloride Vancomycin Trough Coronavirus (PCR) 06/28/20 06/28/20 06/28/20 10:03 10:03 11:51 WBC 33.6 H RBC 3.03 L Hgb 8.9 L Hct 27.0 L RDW Lymph % (Auto) Lymph # (Auto) [place] # (Auto) Seg Neuts % (Manual) Lymphocytes % (Manual) Nucleated RBC % Seg Neutrophils # Seg Neutrophils # Man Lymphocytes # (Manual) Monocytes # (Manual) PT INR APTT D-Dimer Heparin Anti-Xa Level ABG pH POC ABG pCO2 POC ABG pO2 ABG Hemoglobin ABG Oxyhemoglobin ABG Sodium ABG Potassium ABG Chloride ABG Glucose Carboxyhemoglobin Sodium 136 L Potassium 6.5 H* Chloride Carbon Dioxide 20 L BUN 129 H Creatinine 5.8 H Glucose 113 H POC Glucose 107 H Lactic Acid Calcium 7.6 L Magnesium Ferritin AST ALT Lactate Dehydrogenase Total Creatine Kinase C-Reactive Protein Total Protein Albumin Triglycerides Arterial Blood Glucose Arterial Blood Ionized Calcium Urine Creatinine Urine Chloride Vancomycin Trough Coronavirus (PCR) 06/28/20 06/28/20 06/29/20 17:45 Unknown 03:15 WBC RBC Hgb Hct RDW Lymph % (Auto) Lymph # (Auto) [place] # (Auto) Seg Neuts % (Manual) Lymphocytes % (Manual) Nucleated RBC % Seg Neutrophils # Seg Neutrophils # Man Lymphocytes # (Manual) Monocytes # (Manual) PT INR APTT D-Dimer Heparin Anti-Xa Level ABG pH POC ABG pCO2 POC ABG pO2 ABG Hemoglobin 7.8 L ABG Oxyhemoglobin ABG Sodium 127.4 L ABG Potassium 5.5 H ABG Chloride 97.0 L ABG Glucose 96 H Carboxyhemoglobin Sodium Potassium 5.4 H Chloride Carbon Dioxide BUN Creatinine Glucose POC Glucose 117 H Lactic Acid Calcium Magnesium Ferritin AST ALT Lactate Dehydrogenase Total Creatine Kinase C-Reactive Protein Total Protein Albumin Triglycerides Arterial Blood Glucose 96 H Arterial Blood Ionized Calcium 4.0 L Urine Creatinine Urine Chloride Vancomycin Trough Coronavirus (PCR) 06/29/20 03:45 WBC RBC Hgb Hct RDW Lymph % (Auto) Lymph # (Auto) [place] # (Auto) Seg Neuts % (Manual) Lymphocytes % (Manual) Nucleated RBC % Seg Neutrophils # Seg Neutrophils # Man Lymphocytes # (Manual) Monocytes # (Manual) PT INR APTT D-Dimer Heparin Anti-Xa Level ABG pH POC ABG pCO2 POC ABG pO2 ABG Hemoglobin ABG Oxyhemoglobin ABG Sodium ABG Potassium ABG Chloride ABG Glucose Carboxyhemoglobin Sodium 135 L Potassium 6.0 H Chloride 94.8 L Carbon Dioxide BUN 109 H Creatinine 5.5 H Glucose POC Glucose Lactic Acid Calcium 7.4 L Magnesium Ferritin AST 47 H ALT Lactate Dehydrogenase Total Creatine Kinase C-Reactive Protein Total Protein 4.9 L Albumin 2.2 L Triglycerides Arterial Blood Glucose Arterial Blood Ionized Calcium Urine Creatinine Urine Chloride Vancomycin Trough Coronavirus (PCR) Chest x-ray: other (none today) Allied health notes reviewed: nursing
[2020-06-29] MEDS ORDERED: SODIUM BICARB 8.4% 50 MEQ/50 ML SYRINGE IV ONE (12:00)
[2020-06-29 14:02] LABS: Hemoglobin 7.6 gm/dl (11.8-15.2); Mean Corpuscular HGB Conc 33 % (32-34); Mean Corpuscular Volume 90 fl (84-94); Platelet Count 162 K/mm3 (140-440); Red Blood Count 2.57 M/mm3 (3.65-5.03); Red Cell Distribution Width 13.7 % (13.2-15.2)
--- NOTE | 2020-06-29 14:20 | Progress Note ---
Assessment and Plan 59-year-old white male who was admitted for pneumonia secondary to Covid with associated respiratory failure and sepsis. Hyperkalemia -Treated aggressively -Calcium gluconate IV sodium bicarbonate and Kayexalate given Acute metabolic encephalopathy -Due to severe sepsis and severe hypoxia -CT head ordered (patient is too unstable to do the scan), currently intubated, continue supportive care with frequent neuro check Acute hypoxic respiratory failure -Due to severe COVID-19 pneumonia -Intubated following admission overnight as patient was unable to maintain oxygenation with 100% FiO2 with BiPAP -Critical care following, frequent nebulizer breathing treatment, empiric steroid Severe septic shock -Patient currently on 2 pressor support -Wean off as tolerated COVID-19 pneumonia -Follow inflammatory markers, ID consulted --Patient initially tested positive for COVID-19 virus about 2 weeks before this admission -CXR shows patchy parenchymal disease which represent pulmonary edema or atypical pneumonia -Placed on dexamethasone for total 10 days and completed remdesivir total 5 days -Continue empiric antibiotics for now per ID recommendation -Droplet/contact isolation -Continue SPO2 monitoring -Supplemental oxygen as needed -Pulmonary hygiene, Prone intermittently to improve oxygenation -Vitamin C, vitamin D, zinc -Anticoagulation per protocol -Lasix IV as needed to prevent pulmonary edema GIRISH, likely ATN -Follow BMP daily, avoid nephrotoxins -Consulted nephrology, follow recommendations -Renal function continues to decline, started on hemodialysis since 06/22/20 hypokalemia, repleted Supraventricular tachycardia/paroxysmal atrial fibrillation -likely due to severe sepsis -Patient currently on 2 pressor, will initiate IV amiodarone drip for rate control if needed -Consulted cardiology, echo ordered currently pending -Placed on heparin drip Elevated LFT, due to shock liver from severe sepsis and COVID-19 infection -Continue to trend Morbid obesity, -Associated with poor outcome with Covid infection -need counseling for diet and exercise and healthy lifestyles once clinically stable as outpatient DVT prophylaxis, per Covid protocol Full CODE STATUS Poor prognosis The high probability of a clinically significant, sudden or life threatening deterioration of the [cvs, EXPORT SPECIALIST, 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 The aggregate critical c are time was [42] minutes. This time is in addition to time spent performing reported procedures but includes the following: [x] Data Review and interpretation [x] Patient assessment and monitoring of vital signs [x] Documentation [x] Medication orders and management daily course: 06/18: Patient got intubated overnight. Patient was placed on BiPAP to maintain oxygenation with 100% FiO2 but apparently he found to take off his argueta which made his oxygen saturation go down at 60s/50s and patient was found altered mental status. Code met was called immediately. Patient was transferred to ICU and intubated, patient currently on 2 pressors, intubated with 100% FiO2, renal function noted to be decline, nephrology consulted. Discussed with [place] physician Dr. Thompson and requested call back on Saturday. Poor prognosis, continue to monitor with aggressive supportive care. Also called family/ to update clinical status. 06/19: Repeat COVID test was positive. cont cefepime, remdesivir per ID recommendation. follow inflammatory markers, cbc, bmp. placed on heparin drip for atrial fib 06/20: Remains on mechanical ventilation, on 2 pressors, on heparin drip. discussed with and daughter by phone. Renal function declining. cont supportive care for now. 06/21: Renal function cont to decline, urine outpt sig decreased. started on lasix 80mg BID, plan to follow urine output, if no improvement patient need to start on HD. called and daughter today. updated all clinical details 06/22: Renal function continues to decline with uremia and hyperkalemia. Will need to proceed with hemodialysis. Nephrology discussed with the family and they agrees for the hemodialysis. Patient remains on pressor support and mechanical ventilation. Vas-Cath placed today by vascular started on hemodialysis today. 06/23: 2nd round of HD today, remains on 2 pressors. per RN not tolerating TF, has no record of BM since 06/18. start on stool softner. follow cbc/bmp. updated family( and daughter) by phone -all question answered to best of my knowledge and to their satisfaction. Patient remains critically ill with a very poor prognosis. 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 06/25/2020 continue supportive care very poor prognosis 06/26/2020 continue supportive care very poor prognosis family updated 06/27/2020 continue supportive care and weaning if possible 06/28/2020 continue supportive care, talk with at length 06/29: Resumed care. K level persistently high. give one dose of bicarbonate, plan for HD today, recheck k after HD. Subjective Date of service: 06/29/20 Principal diagnosis: ARF/Septic Shock/COVID-19 PNA, AF with RVR Objective - Constitutional Vitals: Vital Signs - 12hr 06/29/20 06/29/20 06/29/20 02:30 02:45 03:00 Temperature Pulse Rate 96 H 96 H 92 H Pulse Rate [ From Monitor] Respiratory 28 H 30 H 30 H Rate Blood Pressure 88/48 88/48 87/52 O2 Sat by Pulse 97 98 97 Oximetry 06/29/20 06/29/20 06/29/20 03:15 03:31 03:45 Temperature Pulse Rate 84 94 H 89 Pulse Rate [ From Monitor] Respiratory 30 H 30 H 30 H Rate Blood Pressure 87/52 127/52 127/52 O2 Sat by Pulse 99 99 98 Oximetry 06/29/20 06/29/20 06/29/20 04:00 04:15 04:30 Temperature 98.8 F Pulse Rate 96 H 111 H 107 H Pulse Rate [ From Monitor] Respiratory 24 18 30 H Rate Blood Pressure 127/52 149/68 O2 Sat by Pulse 98 97 97 Oximetry 06/29/20 06/29/20 06/29/20 04:44 04:45 05:01 Temperature Pulse Rate 100 H 97 H 100 H Pulse Rate [ From Monitor] Respiratory 27 H 30 H Rate Blood Pressure 149/68 149/68 138/53 O2 Sat by Pulse 96 97 100 Oximetry 06/29/20 06/29/20 06/29/20 05:15 05:31 05:45 Temperature Pulse Rate 101 H 102 H 104 H Pulse Rate [ From Monitor] Respiratory 30 H 30 H 30 H Rate Blood Pressure 138/53 108/47 108/47 O2 Sat by Pulse 98 98 100 Oximetry 06/29/20 06/29/20 06/29/20 06:00 06:15 06:30 Temperature Pulse Rate 96 H 94 H 111 H Pulse Rate [ From Monitor] Respiratory 30 H 30 H 31 H Rate Blood Pressure 108/47 95/47 106/46 O2 Sat by Pulse 100 100 100 Oximetry 06/29/20 06/29/20 06/29/20 06:45 07:00 07:15 Temperature Pulse Rate 106 H 92 H 103 H Pulse Rate [ From Monitor] Respiratory 30 H 30 H 30 H Rate Blood Pressure 106/46 104/46 104/46 O2 Sat by Pulse 100 100 100 Oximetry 06/29/20 06/29/20 06/29/20 07:30 07:45 07:58 Temperature Pulse Rate 99 H 96 H Pulse Rate [ 106 H From Monitor] Respiratory 30 H 30 H 30 H Rate Blood Pressure 104/49 104/49 O2 Sat by Pulse 100 100 100 Oximetry 06/29/20 06/29/20 06/29/20 08:00 08:30 08:32 Temperature 99.2 F Pulse Rate 100 H 105 H 95 H Pulse Rate [ From Monitor] Respiratory 31 H 30 H Rate Blood Pressure 92/46 97/49 97/49 O2 Sat by Pulse 99 100 97 Oximetry 06/29/20 06/29/20 06/29/20 09:01 09:30 10:01 Temperature Pulse Rate 100 H 105 H 128 H Pulse Rate [ From Monitor] Respiratory 28 H 20 18 Rate Blood Pressure 153/74 146/67 156/72 O2 Sat by Pulse 97 96 96 Oximetry 06/29/20 06/29/20 06/29/20 10:31 11:01 11:30 Temperature Pulse Rate 119 H 108 H 106 H Pulse Rate [ From Monitor] Respiratory 16 14 29 H Rate Blood Pressure 156/72 82/28 79/33 O2 Sat by Pulse 95 92 95 Oximetry 06/29/20 06/29/20 06/29/20 12:00 12:30 12:39 Temperature 99.6 F Pulse Rate 108 H 114 H 125 H Pulse Rate [ From Monitor] Respiratory 24 31 H Rate Blood Pressure 106/49 105/51 105/51 O2 Sat by Pulse 97 98 97 Oximetry 06/29/20 06/29/20 13:00 13:30 Temperature Pulse Rate 108 H 107 H Pulse Rate [ From Monitor] Respiratory 26 H 30 H Rate Blood Pressure 110/47 102/45 O2 Sat by Pulse 97 97 Oximetry - Labs CBC & Chem 7: 06/30/20 13:12 06/30/20 03:50 Labs: Abnormal lab results 06/28/20 06/28/20 06/29/20 Range/Units 17:45 Unknown 03:15 WBC (4.5-11.0) K/mm3 RBC (3.65-5.03) M/mm3 Hgb (11.8-15.2) gm/dl Hct (35.5-45.6) % ABG Hemoglobin 7.8 L (12.0-17.5) ABG Sodium 127.4 L (136.0-145.0) mmol/L ABG Potassium 5.5 H (3.40-4.50) mmol/L ABG Chloride 97.0 L (98-107) mmol/L ABG Glucose 96 H (65-95) mg/dL Sodium (137-145) mmol/L Potassium 5.4 H (3.6-5.0) mmol/L Chloride (98-107) mmol/L BUN (9-20) mg/dL Creatinine (0.8-1.3) mg/dL POC Glucose 117 H (70-105) mg/dL Calcium (8.4-10.2) mg/dL AST (5-40) units/L Total Protein (6.3-8.2) g/dL Albumin (3.9-5) g/dL Arterial Blood Glucose 96 H (65-95) mg/dL Arterial Blood Ionized Calcium 4.0 L (4.6-5.3) mg/dL 06/29/20 06/29/20 Range/Units 03:45 Unknown WBC 20.7 H (4.5-11.0) K/mm3 RBC 2.57 L (3.65-5.03) M/mm3 Hgb 7.6 L (11.8-15.2) gm/dl Hct 23.0 L (35.5-45.6) % ABG Hemoglobin (12.0-17.5) ABG Sodium (136.0-145.0) mmol/L ABG Potassium (3.40-4.50) mmol/L ABG Chloride (98-107) mmol/L ABG Glucose (65-95) mg/dL Sodium 135 L (137-145) mmol/L Potassium 6.0 H (3.6-5.0) mmol/L Chloride 94.8 L (98-107) mmol/L BUN 109 H (9-20) mg/dL Creatinine 5.5 H (0.8-1.3) mg/dL POC Glucose (70-105) mg/dL Calcium 7.4 L (8.4-10.2) mg/dL AST 47 H (5-40) units/L Total Protein 4.9 L (6.3-8.2) g/dL Albumin 2.2 L (3.9-5) g/dL Arterial Blood Glucose (65-95) mg/dL Arterial Blood Ionized Calcium (4.6-5.3) mg/dL HEART Score - HEART Score Troponin: Troponin T < 0.010 ng/mL (0.00-0.029) 06/17/20 12:33
--- NOTE | 2020-06-29 14:32 | Progress Note ---
Assessment and Plan Cont IV amio. Anemia noted - cont heparin gtt if no contraindications. F/u BMP and CBC in AM. Pt is critically ill. Overall guarded prognosis. The patient has been seen in conjunction with Dr. Adarsh Santos who agrees with the assessment and plan of care. - Patient Problems (1) Acute respiratory failure with hypoxia Current Visit: Yes Status: Acute (2) Pneumonia due to COVID-19 virus Current Visit: Yes Status: Acute (3) Sepsis Current Visit: Yes Status: Acute Qualifiers: Severe sepsis acute organ dysfunction type: acute respiratory failure Severe sepsis shock status: with septic shock (4) Atrial fibrillation with rapid ventricular response Current Visit: Yes Status: Acute (5) Acute renal failure Current Visit: Yes Status: Acute (6) Elevated LFTs Current Visit: Yes Status: Acute Subjective Date of service: 06/29/20 Principal diagnosis: ARF/Septic Shock/COVID-19 PNA, AF with RVR Interval history: pt remains intubated, sedated. placed back on levophed today. on amio gtt. tele reviewed - in AFib/AFlutter HR 100s - 120s. Objective Last Vital Signs Temp 99.6 F 06/29/20 12:00 Pulse 107 H 06/29/20 13:30 Resp 30 H 06/29/20 13:30 BP 102/45 06/29/20 13:30 Pulse Ox 97 06/29/20 13:30 - Physical Examination General: Other (intubated, lethargic) Neck: Positive: neck supple Cardiac: Positive: irregularly irregular, S1/S2, Tachycardia Lungs: Positive: Decreased Breath Sounds Neuro: Positive: Other (intubated, lethargic) Abdomen: Positive: Soft Skin: Negative: Rash, Wound Extremities: Present: upper extr. pulses, lower extr. pulses - Labs and Meds Cardiac Enzymes 06/29/20 Range/Units 03:45 AST 47 H (5-40) units/L CBC 06/29/20 Range/Units Unknown WBC 20.7 H (4.5-11.0) K/mm3 RBC 2.57 L (3.65-5.03) M/mm3 Hgb 7.6 L (11.8-15.2) gm/dl Hct 23.0 L (35.5-45.6) % Plt Count 162 (140-440) K/mm3 Comprehensive Metabolic Panel 06/28/20 06/29/20 Range/Units Unknown 03:45 Sodium 135 L (137-145) mmol/L Potassium 5.4 H 6.0 H (3.6-5.0) mmol/L Chloride 94.8 L (98-107) mmol/L Carbon Dioxide 24 (22-30) mmol/L BUN 109 H (9-20) mg/dL Creatinine 5.5 H (0.8-1.3) mg/dL Glucose 98 (75-100) mg/dL Calcium 7.4 L (8.4-10.2) mg/dL AST 47 H (5-40) units/L ALT 50 (7-56) units/L Alkaline Phosphatase 70 (35-129) units/L Total Protein 4.9 L (6.3-8.2) g/dL Albumin 2.2 L (3.9-5) g/dL - Imaging and Cardiology EKG: report reviewed, image reviewed - Telemetry EKG Rhythm: Atrial Fibrillation - EKG Sinus rhythms and dysrhythmias: sinus tachycardia - Allied health notes Allied health notes reviewed: nursing
[2020-06-29] MEDS: NORepinephrine/NS 4 MG-250 ML 4 MG/250 ML BAG IV SCH (17:01)
--- NOTE | 2020-06-29 17:15 | Progress Note ---
Assessment and Plan Cultures: SARS CoV2 PCR: Positive as outpatient Blood culture: no growth Sputum culture: no growth A/P: 59-year-old male with obesity, obesity hypoventilation syndrome: #Severe sepsis with septic shock: likely secondary to critical COVID-19 pneumonia. Blood cultures so far negative. ?Bacterial pneumonia component, but sputum culture with no growth. On empiric abx, steroids. Completed Remdesivir. #Critical COVID-19 pneumonia: Procalcitonin also high, treating with empiric antibiotics. #Acute hypoxic respiratory failure: on the vent #Transaminitis: Likely secondary to COVID-19. #GIRISH: creatinine elevated. Recs: -Continue steroids for at least total 10 days -s/p Remdesivir -Continue empiric IV Cefepime x 7 days given ongoing pressor use -prophylactic anticoagulation based on d-dimer per hospital protocol -trend ferritin, LDH, d-dimer, CRP every 2-3 days for risk stratification and to assess disease progression -extremely poor prognosis Юлия Finney MD [facility] O: [phone] F: [phone] Subjective Date of service: 06/29/20 Principal diagnosis: ARF/Septic Shock/COVID-19 PNA, AF with RVR Interval history: Afebrile, white count improved to 20.7. Cultures remain negative. Patient resting hypoventilated. Objective - Exam Narrative Exam: Physical exam deferred due to PPE conservation strategy. Please refer to primary team's note. - Constitutional Vitals: Vital Signs Temp Pulse Resp BP Pulse Ox 99.6 F 107 H 24 88/58 97 06/29/20 12:00 06/29/20 16:31 06/29/20 16:30 06/29/20 16:31 06/29/20 16:31 Temperature -Last 24 Hours Temperature 99.6 F Temperature 99.2 F Temperature 98.8 F Temperature 98.9 F Temperature 98.1 F - Labs CBC & Chem 7: 06/29/20 Unknown 06/29/20 Unknown Labs: Abnormal lab results 06/28/20 06/29/20 06/29/20 Range/Units 17:45 03:15 03:45 WBC (4.5-11.0) K/mm3 RBC (3.65-5.03) M/mm3 Hgb (11.8-15.2) gm/dl Hct (35.5-45.6) % ABG Hemoglobin 7.8 L (12.0-17.5) ABG Sodium 127.4 L (136.0-145.0) mmol/L ABG Potassium 5.5 H (3.40-4.50) mmol/L ABG Chloride 97.0 L (98-107) mmol/L ABG Glucose 96 H (65-95) mg/dL Sodium 135 L (137-145) mmol/L Potassium 6.0 H (3.6-5.0) mmol/L Chloride 94.8 L (98-107) mmol/L BUN 109 H (9-20) mg/dL Creatinine 5.5 H (0.8-1.3) mg/dL POC Glucose 117 H (70-105) mg/dL Calcium 7.4 L (8.4-10.2) mg/dL AST 47 H (5-40) units/L Total Creatine Kinase (55-170) units/L Total Protein 4.9 L (6.3-8.2) g/dL Albumin 2.2 L (3.9-5) g/dL Arterial Blood Glucose 96 H (65-95) mg/dL Arterial Blood Ionized Calcium 4.0 L (4.6-5.3) mg/dL 06/29/20 06/29/20 06/29/20 Range/Units Unknown Unknown Unknown WBC 20.7 H (4.5-11.0) K/mm3 RBC 2.57 L (3.65-5.03) M/mm3 Hgb 7.6 L (11.8-15.2) gm/dl Hct 23.0 L (35.5-45.6) % ABG Hemoglobin (12.0-17.5) ABG Sodium (136.0-145.0) mmol/L ABG Potassium (3.40-4.50) mmol/L ABG Chloride (98-107) mmol/L ABG Glucose (65-95) mg/dL Sodium (137-145) mmol/L Potassium 6.1 H* (3.6-5.0) mmol/L Chloride (98-107) mmol/L BUN 114 H (9-20) mg/dL Creatinine (0.8-1.3) mg/dL POC Glucose (70-105) mg/dL Calcium (8.4-10.2) mg/dL AST (5-40) units/L Total Creatine Kinase (55-170) units/L Total Protein (6.3-8.2) g/dL Albumin (3.9-5) g/dL Arterial Blood Glucose (65-95) mg/dL Arterial Blood Ionized Calcium (4.6-5.3) mg/dL 06/29/20 Range/Units Unknown WBC (4.5-11.0) K/mm3 RBC (3.65-5.03) M/mm3 Hgb (11.8-15.2) gm/dl Hct (35.5-45.6) % ABG Hemoglobin (12.0-17.5) ABG Sodium (136.0-145.0) mmol/L ABG Potassium (3.40-4.50) mmol/L ABG Chloride (98-107) mmol/L ABG Glucose (65-95) mg/dL Sodium (137-145) mmol/L Potassium (3.6-5.0) mmol/L Chloride (98-107) mmol/L BUN (9-20) mg/dL Creatinine (0.8-1.3) mg/dL POC Glucose (70-105) mg/dL Calcium (8.4-10.2) mg/dL AST (5-40) units/L Total Creatine Kinase 618 H (55-170) units/L Total Protein (6.3-8.2) g/dL Albumin (3.9-5) g/dL Arterial Blood Glucose (65-95) mg/dL Arterial Blood Ionized Calcium (4.6-5.3) mg/dL
--- NOTE | 2020-06-29 22:55 | Cat Scan Report ---
CT HEAD WITHOUT CONTRAST INDICATION / CLINICAL INFORMATION: Possible anoxic brain injury. TECHNIQUE: All CT scans at this location are performed using CT dose reduction for ALARA by means of automated e xposure control. COMPARISON: None available. FINDINGS: Limited by motion artifact. HEMORRHAGE: None. EXTRA-AXIAL SPACES: Normal in size and morphology for the patient's age. VENTRICULAR SYSTEM: Normal in size and morphology for the patient's age. CEREBRAL PARENCHYMA: No significant abnormality. No acute territorial infarct. MIDLINE SHIFT OR HERNIATION: None. CEREBELLUM / BRAINSTEM: No significant abnormality. ORBITS: Normal as visualized. SOFT TISSUES of HEAD: No significant abnormality. CALVARIUM: No significant abnormality. PARANASAL SINUSES / MASTOID AIR CELLS: Complete opacification of sphenoid and left maxillary sinus wi th moderate mucosal thickening of left ethmoid sinuses ADDITIONAL FINDINGS: None. IMPRESSION: 1. No acute intracranial abnormality. 2. Mucosal sinus disease Signer Name: Chaitanya Beaver MD Signed: 06/29/2020 10:50 PM Workstation Name: [id number]
[2020-06-30] MEDS: INSULIN REGULAR, HUMAN 100 UNITS/1 ML SUB-Q SCH ×4 (00:09→18:21)
[2020-06-30] MEDS: AMIODARONE 900 MG in DEXTROSE 5% IN WATER 482 ML IV SCH (02:16)
[2020-06-30] MEDS: fentaNYL DRIP Premix 2,000 MCG/100 ML BAG IV SCH ×4 (02:30→21:34)
[2020-06-30 04:47] LABS: Hemoglobin 13.9 gm/dl (11.8-15.2); Mean Corpuscular HGB Conc 34 % (32-34); Mean Corpuscular Volume 88 fl (84-94); Red Blood Count 4.64 M/mm3 (3.65-5.03); Red Cell Distribution Width 14.2 % (13.2-15.2)
[2020-06-30 04:48] LABS: Platelet Count 189 K/mm3 (140-440)
[2020-06-30 05:05] LABS: Calcium 7.1 mg/dL (8.4-10.2)
[2020-06-30 05:21] LABS: Platelet Estimate Consistent w Auto; Total Cells Counted 100
[2020-06-30] MEDS: METOCLOPRAMIDE 10 MG/2 ML INJ IV SCH ×3 (05:23→20:09)
[2020-06-30] MEDS: HEPARIN 10,000 UNITS/10 ML VIAL IV PRN (09:30)
[2020-06-30] MEDS: POLYETHYLENE GLYCOL 3350 17 GM POWDER PO SCH (10:14)
[2020-06-30] MEDS: DOCUSATE SODIUM 100 MG/10 ML ORAL LIQD FEEDTUBE SCH ×2 (10:14→21:13)
[2020-06-30] MEDS: QUEtiapine 200 MG TAB PO SCH ×2 (10:15→21:13)
[2020-06-30] MEDS: FAMOTIDINE 20 MG/2 ML INJ IV SCH (10:15)
[2020-06-30] MEDS: CHOLECALCIFEROL (VIT D3) 1000 UNIT (25 mcg) TAB PO SCH (10:16)
[2020-06-30] MEDS: ASCORBIC ACID 250 MG TAB PO SCH ×2 (10:16→21:14)
[2020-06-30] MEDS: ZINC SULFATE 220 MG CAP PO SCH ×2 (10:17→21:14)
--- NOTE | 2020-06-30 10:40 | Progress Note ---
Assessment and Plan Acute hypoxemic respiratory failure due to COVID-19 Severe COVID infection Severe Sepsis with shock Bilateral pneumonia Acute kidney injury (GIRISH) with acute tubular necrosis (ATN) Elevated liver enzymes Obesity - reduce set rate to 25/min - continue enteral nutrition as tolerated - wean vasopressors for target MAP > 65 mmHg - HD/UF today - continue daily SAT's & SBT's as tolerated - continue care as below otherwise; - continue tube feeds and advance to goal rate as tolerated - continue HD/UF per nephrology team for toxin and volume clearance - continue bowel regimen - rate control per cardiology team for afib RVR - Continue to wean supplemental oxygen for O2 sats >92% - Monitor blood pressure closely while optimizing sedation,wean vasopressor support for MAP > 65 mmHg - Critical care prone positioning - Agitation management, keep RASS -1 to -12 now off proning - VAP bundle addressed, aspiration precautions HOB >40 - continue lung protective strategies, permissive hypercapnic acceptable. - continue bronchodilators with pulmonary hygiene per RT - wean per pulmonary driven protocols otherwise - accuchecks with glycemic control per SSI (While critically ill target blood glucose of 140-180 mg/dL; avoid hypoglycemia) - sedation prn for target RASS -1 to -2 - continue enteral nutritional support at goal rate as tolerated - s/p antibiotics per ID recommendations - Monitor liver function test ,avoid hepatotoxic agents - azotemia per nephrology rec's - Avoid nephrotoxins, renally dose all medications, conservative fluid management - continue to avoid benzodiazepines, reduce the possibility of delirium, - prn analgesia per CPOT score - Maintenance of sleep-wake cycle, avoid delirium - Stress ulcer prophylaxis, Famotidine - PT/OT/ROM exercises - Mobility protocols for pressure ulcer prevention - CXR, ABG in am - CBC, CMP in am - Supportive transfusions to keep HgB >7g/dL - Monitor hemodynamics closely - continue other care per attending / other consultants COVID SPECIFIC INTERVENTIONS - continue steroids: Dexamethasone - continue with Remdesivir - monitor inflammatory markers - ferritin, D-dimer, CRP, LDH per facility protocol - continue anticoagulation per System Protocol based on d-dimer - continue contact and airborne isolation CONDITION: CRITICAL PROGNOSIS: GUARDED CODE STATUS: FULL CODE The high probability of a clinically significant, sudden or life-threatening deterioration of the [respiratory, cardiovascular, hematologic & neurologic] system(s) required my full and direct attention, intervention and personal management. The aggregate critical care time was [32] minutes without overlap. Time includes spent on; [x] Data Review and interpretation [x] Patient assessment and monitoring of vital signs [x] Documentation [x] Medication orders and management He was evaluated in the context of the global COVID-19 pandemic, which necessitated consideration that the patient might be at risk for infection with the virus that causes COVID-19. Institutional protocols and algorithms that pertain to the evaluation of patients at risk for COVID-19 are in a state of rapid change based on information released by regulatory bodies including the CDC and federal and state organizations. These policies and algorithms were followed during the patient's care in the ICU Please note that these policies, procedures and recommendations changed on a rapid basis. Subjective Date of service: 06/30/20 Principal diagnosis: ARF/Septic Shock/COVID-19 PNA, AF with RVR Interval history: Patient is seen today for: Ac hypoxemic respiratory failure; COVID-19; Severe Sepsis with shock; Zackery. pneumonia; GIRISH; Elevated liver enzymes; Obesity Seen and examined at bedside; 24hour events reviewed; nursing and respiratory care staff consulted; no adverse overnight events reported to me; resting in bed; remains on MVS; oxygenation continues to improve; HD/UF ongoing; remains on amiodarone; back on vasopressors; AMS is persistent but non focal Objective Vital Signs - 12hr 06/29/20 06/29/20 06/29/20 22:41 22:45 23:00 Temperature Pulse Rate 129 H 141 H 130 H Respiratory 24 21 20 Rate Blood Pressure 162/66 136/53 121/54 O2 Sat by Pulse 91 90 90 Oximetry O2 Sat by Pulse Oximetry [ Anterior Bilateral Throughout] 06/29/20 06/29/20 06/29/20 23:15 23:30 23:34 Temperature Pulse Rate 131 H 116 H 125 H Respiratory 19 26 H Rate Blood Pressure 128/60 138/51 138/51 O2 Sat by Pulse 92 91 92 Oximetry O2 Sat by Pulse Oximetry [ Anterior Bilateral Throughout] 06/29/20 06/30/20 06/30/20 23:45 00:00 00:15 Temperature 100.3 F H Pulse Rate 122 H 123 H 117 H Respiratory 15 28 H 19 Rate Blood Pressure 122/56 140/53 125/60 O2 Sat by Pulse 93 93 94 Oximetry O2 Sat by Pulse Oximetry [ Anterior Bilateral Throughout] 06/30/20 06/30/20 06/30/20 00:30 00:45 01:00 Temperature Pulse Rate 133 H 137 H 128 H Respiratory 30 H 30 H 30 H Rate Blood Pressure 135/61 117/60 110/50 O2 Sat by Pulse 94 94 95 Oximetry O2 Sat by Pulse Oximetry [ Anterior Bilateral Throughout] 06/30/20 06/30/20 06/30/20 01:15 01:31 01:45 Temperature Pulse Rate 127 H 120 H 123 H Respiratory 25 H 23 22 Rate Blood Pressure 121/40 91/46 91/36 O2 Sat by Pulse 93 94 94 Oximetry O2 Sat by Pulse Oximetry [ Anterior Bilateral Throughout] 06/30/20 06/30/20 06/30/20 02:00 02:15 02:30 Temperature Pulse Rate 108 H 118 H 123 H Respiratory 30 H 18 30 H Rate Blood Pressure 84/38 91/42 91/44 O2 Sat by Pulse 95 95 96 Oximetry O2 Sat by Pulse Oximetry [ Anterior Bilateral Throughout] 06/30/20 06/30/20 06/30/20 02:45 03:00 03:15 Temperature Pulse Rate 100 H 120 H 107 H Respiratory 28 H 17 30 H Rate Blood Pressure 89/43 116/42 104/51 O2 Sat by Pulse 96 96 97 Oximetry O2 Sat by Pulse Oximetry [ Anterior Bilateral Throughout] 06/30/20 06/30/20 06/30/20 03:16 03:31 03:45 Temperature Pulse Rate 110 H 113 H 113 H Respiratory 24 19 Rate Blood Pressure 104/51 179/62 175/77 O2 Sat by Pulse 96 95 94 Oximetry O2 Sat by Pulse Oximetry [ Anterior Bilateral Throughout] 06/30/20 06/30/20 06/30/20 04:00 04:15 04:30 Temperature 98.4 F Pulse Rate 126 H 120 H 121 H Respiratory 18 21 17 Rate Blood Pressure 182/76 171/76 156/76 O2 Sat by Pulse 96 94 94 Oximetry O2 Sat by Pulse Oximetry [ Anterior Bilateral Throughout] 06/30/20 06/30/20 06/30/20 04:45 05:00 05:15 Temperature Pulse Rate 128 H 135 H 129 H Respiratory 15 25 H 21 Rate Blood Pressure 149/75 151/73 143/66 O2 Sat by Pulse 94 93 94 Oximetry O2 Sat by Pulse Oximetry [ Anterior Bilateral Throughout] 0206/30/20 06/30/20 05:31 05:45 06:01 Temperature Pulse Rate 122 H 123 H 119 H Respiratory 31 H 30 H 17 Rate Blood Pressure 114/52 113/57 146/73 O2 Sat by Pulse 93 95 95 Oximetry O2 Sat by Pulse Oximetry [ Anterior Bilateral Throughout] 06/30/20 06/30/20 06/30/20 06:15 06:30 06:45 Temperature Pulse Rate 124 H 121 H 129 H Respiratory 30 H 25 H 26 H Rate Blood Pressure 111/54 108/48 119/56 O2 Sat by Pulse 94 95 95 Oximetry O2 Sat by Pulse Oximetry [ Anterior Bilateral Throughout] 06/30/20 06/30/20 06/30/20 07:00 07:15 07:30 Temperature Pulse Rate 135 H 117 H 112 H Respiratory 31 H 28 H 30 H Rate Blood Pressure 111/55 112/51 104/59 O2 Sat by Pulse 96 96 97 Oximetry O2 Sat by Pulse Oximetry [ Anterior Bilateral Throughout] 06/30/20 06/30/20 06/30/20 07:45 07:55 08:00 Temperature Pulse Rate 124 H 121 H 107 H Respiratory 21 30 H Rate Blood Pressure 110/56 108/48 113/53 O2 Sat by Pulse 96 95 97 Oximetry O2 Sat by Pulse Oximetry [ Anterior Bilateral Throughout] 06/30/20 06/30/20 06/30/20 08:15 08:30 08:45 Temperature Pulse Rate 106 H 119 H 107 H Respiratory 30 H 27 H 30 H Rate Blood Pressure 121/53 118/58 109/55 O2 Sat by Pulse 97 97 97 Oximetry O2 Sat by Pulse Oximetry [ Anterior Bilateral Throughout] 06/30/20 06/30/20 06/30/20 09:00 09:15 09:30 Temperature 98.4 F Pulse Rate 112 H 110 H 106 H Respiratory 30 H 30 H 18 Rate Blood Pressure 103/54 111/52 111/52 O2 Sat by Pulse 97 96 Oximetry O2 Sat by Pulse 93 Oximetry [ Anterior Bilateral Throughout] 06/30/20 06/30/20 06/30/20 09:31 09:45 10:00 Temperature Pulse Rate 102 H 138 H 119 H Respiratory 27 H 25 H 29 H Rate Blood Pressure 173/74 191/83 128/68 O2 Sat by Pulse 96 93 99 Oximetry O2 Sat by Pulse Oximetry [ Anterior Bilateral Throughout] 06/30/20 06/30/20 06/30/20 10:15 10:30 10:31 Temperature Pulse Rate 141 H 133 H 130 H Respiratory 18 25 H Rate Blood Pressure 128/68 151/74 151/74 O2 Sat by Pulse 95 95 Oximetry O2 Sat by Pulse Oximetry [ Anterior Bilateral Throughout] Constitutional: appears uncomfortable, other (morbidly obese, atraumatic, normocephalic, mild resp distress, orally intuabted) Eyes: non-icteric ENT: oropharynx moist, other (ETT 24 cm TROY) Neck: supple, no lymphadenopathy, other (Large , short neck) Effort: mildly labored Ascultation: Bilateral: diminished breath sounds, rhonchi (scant) Percussion: Bilateral: not dull Cardiovascular: irregular rhythm, other (S1,S2) Gastrointestinal: normoactive bowel sounds, non-distended (protuberant), other (OG Tube) Integumentary: rash, other (Femoral CVC, Newell catheter) Extremities: no edema, pink and warm, pulses normal, no ischemia or petechiae, edema (trace to 1+) Neurologic: non-focal exam (grossly), pupils equal and round, other (unable to assess, sedated) Psychiatric: other (unable to assess, sedated) CBC and BMP: 06/30/20 03:50 06/30/20 03:50 ABG, PT/INR, D-dimer: ABG ABG pH 7.422 (7.320-7.450) 06/30/20 03:32 POC ABG pCO2 34.0 mmHg (32.0-48.0) 06/30/20 03:32 POC ABG pO2 87.1 mmHg (83-108) 06/30/20 03:32 POC ABG HCO3 21.7 06/30/20 03:32 PT/INR, D-dimer PT 17.4 Sec. (12.2-14.9) H 06/26/20 05:47 INR 1.44 (0.87-1.13) H 06/26/20 05:47 D-Dimer 939.89 ng/mlDDU (0-234) H 06/17/20 14:48 Abnormal lab findings: Abnormal Labs 06/17/20 06/17/20 06/17/20 12:33 12:33 12:33 WBC 19.5 H RBC 5.18 H Hgb 15.5 H Hct RDW Lymph % (Auto) 3.8 L Lymph # (Auto) 0.7 L [place] # (Auto) Seg Neuts % (Manual) 99.0 H Lymphocytes % (Manual) 1.0 L Nucleated RBC % Seg Neutrophils # 18.2 H Seg Neutrophils # Man 19.3 H Lymphocytes # (Manual) 0.2 L Monocytes # (Manual) PT 16.5 H INR 1.33 H APTT D-Dimer 1025.04 H Heparin Anti-Xa Level ABG pH POC ABG pCO2 POC ABG pO2 ABG Hemoglobin ABG Oxyhemoglobin ABG Sodium ABG Potassium ABG Chloride ABG Glucose Carboxyhemoglobin Sodium 130 L Potassium 3.4 L Chloride 95.0 L Carbon Dioxide BUN 21 H Creatinine Glucose 137 H POC Glucose Lactic Acid Calcium 7.9 L Phosphorus Magnesium Ferritin AST 84 H ALT 67 H Lactate Dehydrogenase 437 H Total Creatine Kinase 310 H C-Reactive Protein 27.90 H Total Protein Albumin 2.9 L Triglycerides Arterial Blood Glucose Arterial Blood Ionized Calcium Urine Creatinine Urine Chloride Vancomycin Trough Coronavirus (PCR) 06/17/20 06/17/20 06/17/20 12:33 12:33 14:48 WBC RBC Hgb Hct RDW Lymph % (Auto) Lymph # (Auto) [place] # (Auto) Seg Neuts % (Manual) Lymphocytes % (Manual) Nucleated RBC % Seg Neutrophils # Seg Neutrophils # Man Lymphocytes # (Manual) Monocytes # (Manual) PT INR APTT D-Dimer Heparin Anti-Xa Level ABG pH POC ABG pCO2 POC ABG pO2 ABG Hemoglobin ABG Oxyhemoglobin ABG Sodium ABG Potassium ABG Chloride ABG Glucose Carboxyhemoglobin Sodium Potassium Chloride Carbon Dioxide BUN Creatinine Glucose POC Glucose Lactic Acid 2.50 H* 2.20 H* Calcium Phosphorus Magnesium Ferritin 2297.0 H AST ALT Lactate Dehydrogenase Total Creatine Kinase C-Reactive Protein Total Protein Albumin Triglycerides Arterial Blood Glucose Arterial Blood Ionized Calcium Urine Creatinine Urine Chloride Vancomycin Trough Coronavirus (PCR) 06/17/20 06/17/20 06/17/20 14:48 14:48 14:48 WBC RBC Hgb Hct RDW Lymph % (Auto) Lymph # (Auto) [place] # (Auto) Seg Neuts % (Manual) Lymphocytes % (Manual) Nucleated RBC % Seg Neutrophils # Seg Neutrophils # Man Lymphocytes # (Manual) Monocytes # (Manual) PT INR APTT D-Dimer 939.89 H Heparin Anti-Xa Level ABG pH POC ABG pCO2 POC ABG pO2 ABG Hemoglobin ABG Oxyhemoglobin ABG Sodium ABG Potassium ABG Chloride ABG Glucose Carboxyhemoglobin Sodium Potassium Chloride Carbon Dioxide BUN Creatinine Glucose 141 H POC Glucose Lactic Acid Calcium Phosphorus Magnesium Ferritin > 2000.0 H AST ALT Lactate Dehydrogenase 503 H Total Creatine Kinase C-Reactive Protein 24.70 H Total Protein Albumin Triglycerides Arterial Blood Glucose Arterial Blood Ionized Calcium Urine Creatinine Urine Chloride Vancomycin Trough Coronavirus (PCR) 06/17/20 06/17/20 06/17/20 16:54 19:39 23:43 WBC RBC Hgb Hct RDW Lymph % (Auto) Lymph # (Auto) [place] # (Auto) Seg Neuts % (Manual) Lymphocytes % (Manual) Nucleated RBC % Seg Neutrophils # Seg Neutrophils # Man Lymphocytes # (Manual) Monocytes # (Manual) PT INR APTT D-Dimer Heparin Anti-Xa Level ABG pH 7.571 H POC ABG pCO2 24.3 L POC ABG pO2 41.6 L ABG Hemoglobin ABG Oxyhemoglobin 84.0 L ABG Sodium 131.0 L ABG Potassium ABG Chloride ABG Glucose 163 H Carboxyhemoglobin Sodium Potassium Chloride Carbon Dioxide BUN Creatinine Glucose POC Glucose 185 H Lactic Acid 2.10 H* Calcium Phosphorus Magnesium Ferritin AST ALT Lactate Dehydrogenase Total Creatine Kinase C-Reactive Protein Total Protein Albumin Triglycerides Arterial Blood Glucose 163 H Arterial Blood Ionized Calcium 4.4 L Urine Creatinine Urine Chloride Vancomycin Trough Coronavirus (PCR) 06/18/20 06/18/20 06/18/20 00:17 00:23 03:55 WBC RBC Hgb Hct RDW Lymph % (Auto) Lymph # (Auto) [place] # (Auto) Seg Neuts % (Manual) Lymphocytes % (Manual) Nucleated RBC % Seg Neutrophils # Seg Neutrophils # Man Lymphocytes # (Manual) Monocytes # (Manual) PT INR APTT D-Dimer Heparin Anti-Xa Level ABG pH POC ABG pCO2 POC ABG pO2 56.5 L 48.3 L ABG Hemoglobin ABG Oxyhemoglobin 86.3 L 81.7 L ABG Sodium 132.9 L 131.0 L ABG Potassium ABG Chloride ABG Glucose 189 H 161 H Carboxyhemoglobin 0.4 L Sodium Potassium Chloride Carbon Dioxide BUN Creatinine Glucose POC Glucose Lactic Acid 3.80 H* Calcium Phosphorus Magnesium Ferritin AST ALT Lactate Dehydrogenase Total Creatine Kinase C-Reactive Protein Total Protein Albumin Triglycerides Arterial Blood Glucose 189 H 161 H Arterial Blood Ionized Calcium 4.3 L 4.2 L Urine Creatinine Urine Chloride Vancomycin Trough Coronavirus (PCR) 06/18/20 06/18/20 06/18/20 05:39 05:39 05:39 WBC 26.2 H RBC Hgb Hct RDW Lymph % (Auto) Lymph # (Auto) [place] # (Auto) Seg Neuts % (Manual) 90.0 H Lymphocytes % (Manual) 5.0 L Nucleated RBC % Seg Neutrophils # Seg Neutrophils # Man 23.6 H Lymphocytes # (Manual) Monocytes # (Manual) 1.3 H PT INR APTT D-Dimer Heparin Anti-Xa Level ABG pH POC ABG pCO2 POC ABG pO2 ABG Hemoglobin ABG Oxyhemoglobin ABG Sodium ABG Potassium ABG Chloride ABG Glucose Carboxyhemoglobin Sodium 135 L Potassium Chloride 97.5 L Carbon Dioxide 21 L BUN 39 H Creatinine 1.7 H D Glucose 168 H POC Glucose Lactic Acid 3.40 H* Calcium 7.2 L Phosphorus Magnesium Ferritin AST ALT Lactate Dehydrogenase Total Creatine Kinase C-Reactive Protein Total Protein Albumin Triglycerides Arterial Blood Glucose Arterial Blood Ionized Calcium Urine Creatinine Urine Chloride Vancomycin Trough Coronavirus (PCR) 06/18/20 06/18/20 06/18/20 07:24 09:00 10:10 WBC RBC Hgb Hct RDW Lymph % (Auto) Lymph # (Auto) [place] # (Auto) Seg Neuts % (Manual) Lymphocytes % (Manual) Nucleated RBC % Seg Neutrophils # Seg Neutrophils # Man Lymphocytes # (Manual) Monocytes # (Manual) PT INR APTT D-Dimer Heparin Anti-Xa Level ABG pH POC ABG pCO2 POC ABG pO2 ABG Hemoglobin ABG Oxyhemoglobin ABG Sodium ABG Potassium ABG Chloride ABG Glucose Carboxyhemoglobin Sodium Potassium Chloride Carbon Dioxide BUN Creatinine Glucose POC Glucose Lactic Acid 2.90 H* 3.20 H* Calcium Phosphorus Magnesium Ferritin AST ALT Lactate Dehydrogenase Total Creatine Kinase C-Reactive Protein Total Protein Albumin Triglycerides Arterial Blood Glucose Arterial Blood Ionized Calcium Urine Creatinine Urine Chloride Vancomycin Trough Coronavirus (PCR) Positive A 06/18/20 06/18/20 06/18/20 11:58 14:43 15:00 WBC RBC Hgb Hct RDW Lymph % (Auto) Lymph # (Auto) [place] # (Auto) Seg Neuts % (Manual) Lymphocytes % (Manual) Nucleated RBC % Seg Neutrophils # Seg Neutrophils # Man Lymphocytes # (Manual) Monocytes # (Manual) PT INR APTT D-Dimer Heparin Anti-Xa Level ABG pH 7.303 L POC ABG pCO2 POC ABG pO2 82.3 L ABG Hemoglobin ABG Oxyhemoglobin ABG Sodium 135.3 L ABG Potassium ABG Chloride ABG Glucose 215 H Carboxyhemoglobin 0.3 L Sodium Potassium Chloride Carbon Dioxide BUN Creatinine Glucose POC Glucose 209 H Lactic Acid Calcium Phosphorus Magnesium Ferritin AST ALT Lactate Dehydrogenase Total Creatine Kinase C-Reactive Protein Total Protein Albumin Triglycerides Arterial Blood Glucose 215 H Arterial Blood Ionized Calcium 4.2 L Urine Creatinine 192.4 H Urine Chloride 31.1 L Vancomycin Trough Coronavirus (PCR) 06/18/20 06/18/20 06/18/20 17:16 19:44 20:33 WBC RBC Hgb Hct RDW Lymph % (Auto) Lymph # (Auto) [place] # (Auto) Seg Neuts % (Manual) Lymphocytes % (Manual) Nucleated RBC % Seg Neutrophils # Seg Neutrophils # Man Lymphocytes # (Manual) Monocytes # (Manual) PT INR APTT D-Dimer Heparin Anti-Xa Level ABG pH POC ABG pCO2 POC ABG pO2 ABG Hemoglobin ABG Oxyhemoglobin ABG Sodium ABG Potassium ABG Chloride ABG Glucose Carboxyhemoglobin Sodium Potassium Chloride Carbon Dioxide BUN Creatinine Glucose POC Glucose 182 H Lactic Acid 3.00 H* Calcium Phosphorus Magnesium 2.70 H Ferritin AST ALT Lactate Dehydrogenase Total Creatine Kinase C-Reactive Protein Total Protein Albumin Triglycerides Arterial Blood Glucose Arterial Blood Ionized Calcium Urine Creatinine Urine Chloride Vancomycin Trough Coronavirus (PCR) 06/18/20 06/19/20 06/19/20 23:43 04:00 04:00 WBC 31.6 H RBC Hgb Hct RDW Lymph % (Auto) Lymph # (Auto) [place] # (Auto) Seg Neuts % (Manual) 98.0 H Lymphocytes % (Manual) 0.5 L Nucleated RBC % Seg Neutrophils # Seg Neutrophils # Man 31.0 H Lymphocytes # (Manual) 0.2 L Monocytes # (Manual) PT INR APTT D-Dimer Heparin Anti-Xa Level ABG pH POC ABG pCO2 POC ABG pO2 ABG Hemoglobin ABG Oxyhemoglobin ABG Sodium ABG Potassium ABG Chloride ABG Glucose Carboxyhemoglobin Sodium Potassium Chloride Carbon Dioxide BUN 56 H Creatinine 1.6 H Glucose 176 H POC Glucose 149 H Lactic Acid Calcium 7.0 L Phosphorus Magnesium Ferritin AST 244 H ALT 159 H Lactate Dehydrogenase Total Creatine Kinase C-Reactive Protein Total Protein 4.9 L D Albumin 2.5 L Triglycerides Arterial Blood Glucose Arterial Blood Ionized Calcium Urine Creatinine Urine Chloride Vancomycin Trough Coronavirus (PCR) 06/19/20 06/19/20 06/19/20 04:00 05:44 11:42 WBC RBC Hgb Hct RDW Lymph % (Auto) Lymph # (Auto) [place] # (Auto) Seg Neuts % (Manual) Lymphocytes % (Manual) Nucleated RBC % Seg Neutrophils # Seg Neutrophils # Man Lymphocytes # (Manual) Monocytes # (Manual) PT INR APTT D-Dimer Heparin Anti-Xa Level ABG pH 7.265 L POC ABG pCO2 51.8 H POC ABG pO2 65.1 L ABG Hemoglobin ABG Oxyhemoglobin ABG Sodium ABG Potassium ABG Chloride ABG Glucose 184 H Carboxyhemoglobin Sodium Potassium Chloride Carbon Dioxide BUN Creatinine Glucose POC Glucose 156 H 191 H Lactic Acid Calcium Phosphorus Magnesium Ferritin AST ALT Lactate Dehydrogenase Total Creatine Kinase C-Reactive Protein Total Protein Albumin Triglycerides Arterial Blood Glucose 184 H Arterial Blood Ionized Calcium 4.3 L Urine Creatinine Urine Chloride Vancomycin Trough Coronavirus (PCR) 06/19/20 06/19/20 06/19/20 12:30 17:16 18:36 WBC RBC Hgb Hct RDW Lymph % (Auto) Lymph # (Auto) [place] # (Auto) Seg Neuts % (Manual) Lymphocytes % (Manual) Nucleated RBC % Seg Neutrophils # Seg Neutrophils # Man Lymphocytes # (Manual) Monocytes # (Manual) PT 16.4 H INR 1.32 H APTT D-Dimer Heparin Anti-Xa Level ABG pH 7.088 L POC ABG pCO2 78.1 H POC ABG pO2 208.3 H ABG Hemoglobin ABG Oxyhemoglobin 98.3 H ABG Sodium ABG Potassium 5.0 H ABG Chloride ABG Glucose 182 H Carboxyhemoglobin 0.4 L Sodium Potassium Chloride Carbon Dioxide BUN Creatinine Glucose POC Glucose 154 H Lactic Acid Calcium Phosphorus Magnesium Ferritin AST ALT Lactate Dehydrogenase Total Creatine Kinase C-Reactive Protein Total Protein Albumin Triglycerides Arterial Blood Glucose 182 H Arterial Blood Ionized Calcium 4.3 L Urine Creatinine Urine Chloride Vancomycin Trough Coronavirus (PCR) 06/19/20 06/20/20 06/20/20 23:32 03:00 05:19 WBC RBC Hgb Hct RDW Lymph % (Auto) Lymph # (Auto) [place] # (Auto) Seg Neuts % (Manual) Lymphocytes % (Manual) Nucleated RBC % Seg Neutrophils # Seg Neutrophils # Man Lymphocytes # (Manual) Monocytes # (Manual) PT INR APTT D-Dimer Heparin Anti-Xa Level 0.77 H ABG pH POC ABG pCO2 POC ABG pO2 ABG Hemoglobin ABG Oxyhemoglobin ABG Sodium ABG Potassium ABG Chloride ABG Glucose Carboxyhemoglobin Sodium Potassium Chloride Carbon Dioxide BUN Creatinine Glucose POC Glucose 201 H 190 H Lactic Acid Calcium Phosphorus Magnesium Ferritin AST ALT Lactate Dehydrogenase Total Creatine Kinase C-Reactive Protein Total Protein Albumin Triglycerides Arterial Blood Glucose Arterial Blood Ionized Calcium Urine Creatinine Urine Chloride Vancomycin Trough Coronavirus (PCR) 06/20/20 06/20/20 06/20/20 08:25 08:25 11:36 WBC RBC Hgb Hct RDW Lymph % (Auto) Lymph # (Auto) [place] # (Auto) Seg Neuts % (Manual) Lymphocytes % (Manual) Nucleated RBC % Seg Neutrophils # Seg Neutrophils # Man Lymphocytes # (Manual) Monocytes # (Manual) PT INR APTT D-Dimer Heparin Anti-Xa Level ABG pH POC ABG pCO2 POC ABG pO2 ABG Hemoglobin ABG Oxyhemoglobin ABG Sodium ABG Potassium ABG Chloride ABG Glucose Carboxyhemoglobin Sodium 135 L Potassium 5.4 H Chloride 109.2 H Carbon Dioxide 19 L BUN 68 H Creatinine 2.5 H D Glucose 201 H POC Glucose 184 H Lactic Acid Calcium 5.5 L* D Phosphorus Magnesium Ferritin AST 123 H ALT 86 H Lactate Dehydrogenase Total Creatine Kinase C-Reactive Protein Total Protein 4.6 L Albumin 1.5 L Triglycerides Arterial Blood Glucose Arterial Blood Ionized Calcium Urine Creatinine Urine Chloride Vancomycin Trough 22.7 H Coronavirus (PCR) 06/20/20 06/20/20 06/20/20 11:40 17:28 20:00 WBC RBC Hgb Hct RDW Lymph % (Auto) Lymph # (Auto) [place] # (Auto) Seg Neuts % (Manual) Lymphocytes % (Manual) Nucleated RBC % Seg Neutrophils # Seg Neutrophils # Man Lymphocytes # (Manual) Monocytes # (Manual) PT INR APTT D-Dimer Heparin Anti-Xa Level 0.89 H ABG pH 7.099 L POC ABG pCO2 61.1 H POC ABG pO2 ABG Hemoglobin ABG Oxyhemoglobin ABG Sodium ABG Potassium 5.0 H ABG Chloride 111.0 H ABG Glucose 200 H Carboxyhemoglobin 0.4 L Sodium Potassium Chloride Carbon Dioxide BUN Creatinine Glucose POC Glucose 165 H Lactic Acid Calcium Phosphorus Magnesium Ferritin AST ALT Lactate Dehydrogenase Total Creatine Kinase C-Reactive Protein Total Protein Albumin Triglycerides Arterial Blood Glucose 200 H Arterial Blood Ionized Calcium 4.2 L Urine Creatinine Urine Chloride Vancomycin Trough Coronavirus (PCR) 06/20/20 06/21/20 06/21/20 23:29 05:00 05:20 WBC RBC Hgb Hct RDW Lymph % (Auto) Lymph # (Auto) [place] # (Auto) Seg Neuts % (Manual) Lymphocytes % (Manual) Nucleated RBC % Seg Neutrophils # Seg Neutrophils # Man Lymphocytes # (Manual) Monocytes # (Manual) PT INR APTT D-Dimer Heparin Anti-Xa Level ABG pH POC ABG pCO2 POC ABG pO2 ABG Hemoglobin ABG Oxyhemoglobin ABG Sodium ABG Potassium ABG Chloride ABG Glucose Carboxyhemoglobin Sodium Potassium Chloride 112.0 H Carbon Dioxide 20 L BUN 92 H Creatinine 3.9 H D Glucose 214 H POC Glucose 145 H 191 H Lactic Acid Calcium 6.5 L D Phosphorus Magnesium Ferritin AST 98 H ALT 84 H Lactate Dehydrogenase Total Creatine Kinase C-Reactive Protein Total Protein 4.6 L Albumin 2.1 L Triglycerides 180 H Arterial Blood Glucose Arterial Blood Ionized Calcium Urine Creatinine Urine Chloride Vancomycin Trough Coronavirus (PCR) 06/21/20 06/21/20 06/21/20 08:56 11:12 12:43 WBC RBC Hgb Hct RDW Lymph % (Auto) Lymph # (Auto) [place] # (Auto) Seg Neuts % (Manual) Lymphocytes % (Manual) Nucleated RBC % Seg Neutrophils # Seg Neutrophils # Man Lymphocytes # (Manual) Monocytes # (Manual) PT INR APTT D-Dimer Heparin Anti-Xa Level 0.28 L ABG pH 7.184 L POC ABG pCO2 48.3 H POC ABG pO2 172.1 H ABG Hemoglobin ABG Oxyhemoglobin 98.7 H ABG Sodium ABG Potassium 4.9 H ABG Chloride 112.0 H ABG Glucose 196 H Carboxyhemoglobin 0.2 L Sodium Potassium Chloride Carbon Dioxide BUN Creatinine Glucose POC Glucose 177 H Lactic Acid Calcium Phosphorus Magnesium Ferritin AST ALT Lactate Dehydrogenase Total Creatine Kinase C-Reactive Protein Total Protein Albumin Triglycerides Arterial Blood Glucose 196 H Arterial Blood Ionized Calcium 4.1 L Urine Creatinine Urine Chloride Vancomycin Trough Coronavirus (PCR) 06/21/20 06/21/20 06/22/20 16:31 Unknown 00:12 WBC RBC Hgb Hct RDW Lymph % (Auto) Lymph # (Auto) [place] # (Auto) Seg Neuts % (Manual) Lymphocytes % (Manual) Nucleated RBC % Seg Neutrophils # Seg Neutrophils # Man Lymphocytes # (Manual) Monocytes # (Manual) PT INR APTT D-Dimer Heparin Anti-Xa Level 0.78 H ABG pH POC ABG pCO2 POC ABG pO2 ABG Hemoglobin ABG Oxyhemoglobin ABG Sodium ABG Potassium ABG Chloride ABG Glucose Carboxyhemoglobin Sodium Potassium Chloride Carbon Dioxide BUN Creatinine Glucose POC Glucose 150 H 173 H Lactic Acid Calcium Phosphorus Magnesium Ferritin AST ALT Lactate Dehydrogenase Total Creatine Kinase C-Reactive Protein Total Protein Albumin Triglycerides Arterial Blood Glucose Arterial Blood Ionized Calcium Urine Creatinine Urine Chloride Vancomycin Trough Coronavirus (PCR) 06/22/20 06/22/20 06/22/20 04:00 05:04 05:30 WBC 33.9 H RBC Hgb 11.7 L Hct 35.2 L RDW 15.8 H Lymph % (Auto) Lymph # (Auto) [place] # (Auto) Seg Neuts % (Manual) 93.0 H Lymphocytes % (Manual) 5.0 L Nucleated RBC % Seg Neutrophils # Seg Neutrophils # Man 31.5 H Lymphocytes # (Manual) Monocytes # (Manual) PT INR APTT D-Dimer Heparin Anti-Xa Level ABG pH 7.169 L POC ABG pCO2 POC ABG pO2 ABG Hemoglobin ABG Oxyhemoglobin ABG Sodium ABG Potassium 5.1 H ABG Chloride 112.0 H ABG Glucose 186 H Carboxyhemoglobin 0.3 L Sodium Potassium Chloride Carbon Dioxide BUN Creatinine Glucose POC Glucose 161 H Lactic Acid Calcium Phosphorus Magnesium Ferritin AST ALT Lactate Dehydrogenase Total Creatine Kinase C-Reactive Protein Total Protein Albumin Triglycerides Arterial Blood Glucose 186 H Arterial Blood Ionized Calcium 4.1 L Urine Creatinine Urine Chloride Vancomycin Trough Coronavirus (PCR) 06/22/20 06/22/20 06/22/20 05:30 11:39 13:27 WBC RBC Hgb Hct RDW Lymph % (Auto) Lymph # (Auto) [place] # (Auto) Seg Neuts % (Manual) Lymphocytes % (Manual) Nucleated RBC % Seg Neutrophils # Seg Neutrophils # Man Lymphocytes # (Manual) Monocytes # (Manual) PT INR APTT D-Dimer Heparin Anti-Xa Level ABG pH POC ABG pCO2 POC ABG pO2 ABG Hemoglobin ABG Oxyhemoglobin ABG Sodium ABG Potassium ABG Chloride ABG Glucose Carboxyhemoglobin Sodium Potassium 5.7 H Chloride 111.3 H Carbon Dioxide 18 L BUN 112 H Creatinine 5.0 H Glucose 173 H POC Glucose 172 H 176 H Lactic Acid Calcium 6.7 L Phosphorus Magnesium Ferritin AST ALT Lactate Dehydrogenase Total Creatine Kinase C-Reactive Protein Total Protein Albumin Triglycerides Arterial Blood Glucose Arterial Blood Ionized Calcium Urine Creatinine Urine Chloride Vancomycin Trough Coronavirus (PCR) 06/22/20 06/22/20 06/22/20 14:37 17:00 17:40 WBC RBC Hgb Hct RDW Lymph % (Auto) Lymph # (Auto) [place] # (Auto) Seg Neuts % (Manual) Lymphocytes % (Manual) Nucleated RBC % Seg Neutrophils # Seg Neutrophils # Man Lymphocytes # (Manual) Monocytes # (Manual) PT INR APTT D-Dimer Heparin Anti-Xa Level 1.32 H ABG pH POC ABG pCO2 POC ABG pO2 ABG Hemoglobin ABG Oxyhemoglobin ABG Sodium ABG Potassium ABG Chloride ABG Glucose Carboxyhemoglobin Sodium Potassium Chloride Carbon Dioxide BUN Creatinine Glucose POC Glucose 171 H Lactic Acid Calcium Phosphorus Magnesium Ferritin AST ALT Lactate Dehydrogenase Total Creatine Kinase C-Reactive Protein 5.30 H Total Protein Albumin Triglycerides Arterial Blood Glucose Arterial Blood Ionized Calcium Urine Creatinine Urine Chloride Vancomycin Trough Coronavirus (PCR) 06/22/20 06/23/20 06/23/20 23:36 02:13 02:41 WBC RBC Hgb Hct RDW Lymph % (Auto) Lymph # (Auto) [place] # (Auto) Seg Neuts % (Manual) Lymphocytes % (Manual) Nucleated RBC % Seg Neutrophils # Seg Neutrophils # Man Lymphocytes # (Manual) Monocytes # (Manual) PT INR APTT D-Dimer Heparin Anti-Xa Level 0.21 L ABG pH 7.318 L POC ABG pCO2 POC ABG pO2 157.5 H ABG Hemoglobin ABG Oxyhemoglobin ABG Sodium 135.6 L ABG Potassium 4.6 H ABG Chloride 110.0 H ABG Glucose 169 H Carboxyhemoglobin Sodium Potassium Chloride Carbon Dioxide BUN Creatinine Glucose POC Glucose 155 H Lactic Acid Calcium Phosphorus Magnesium Ferritin AST ALT Lactate Dehydrogenase Total Creatine Kinase C-Reactive Protein Total Protein Albumin Triglycerides Arterial Blood Glucose 169 H Arterial Blood Ionized Calcium Urine Creatinine Urine Chloride Vancomycin Trough Coronavirus (PCR) 06/23/20 06/23/20 06/23/20 04:00 04:00 05:24 WBC 27.4 H RBC Hgb 11.3 L Hct 33.8 L RDW Lymph % (Auto) Lymph # (Auto) [place] # (Auto) Seg Neuts % (Manual) 93.0 H Lymphocytes % (Manual) 1.0 L Nucleated RBC % 1.0 H Seg Neutrophils # Seg Neutrophils # Man 25.5 H Lymphocytes # (Manual) 0.3 L Monocytes # (Manual) 1.1 H PT INR APTT D-Dimer Heparin Anti-Xa Level ABG pH POC ABG pCO2 POC ABG pO2 ABG Hemoglobin ABG Oxyhemoglobin ABG Sodium ABG Potassium ABG Chloride ABG Glucose Carboxyhemoglobin Sodium Potassium Chloride 107.6 H Carbon Dioxide 20 L BUN 100 H Creatinine 4.7 H Glucose 168 H POC Glucose 151 H Lactic Acid Calcium Phosphorus Magnesium Ferritin AST ALT Lactate Dehydrogenase Total Creatine Kinase C-Reactive Protein Total Protein Albumin Triglycerides Arterial Blood Glucose Arterial Blood Ionized Calcium Urine Creatinine Urine Chloride Vancomycin Trough Coronavirus (PCR) 06/23/20 06/23/20 06/23/20 11:30 17:18 23:50 WBC RBC Hgb Hct RDW Lymph % (Auto) Lymph # (Auto) [place] # (Auto) Seg Neuts % (Manual) Lymphocytes % (Manual) Nucleated RBC % Seg Neutrophils # Seg Neutrophils # Man Lymphocytes # (Manual) Monocytes # (Manual) PT INR APTT D-Dimer Heparin Anti-Xa Level ABG pH POC ABG pCO2 POC ABG pO2 ABG Hemoglobin ABG Oxyhemoglobin ABG Sodium ABG Potassium ABG Chloride ABG Glucose Carboxyhemoglobin Sodium Potassium Chloride Carbon Dioxide BUN Creatinine Glucose POC Glucose 157 H 156 H 162 H Lactic Acid Calcium Phosphorus Magnesium Ferritin AST ALT Lactate Dehydrogenase Total Creatine Kinase C-Reactive Protein Total Protein Albumin Triglycerides Arterial Blood Glucose Arterial Blood Ionized Calcium Urine Creatinine Urine Chloride Vancomycin Trough Coronavirus (PCR) 06/24/20 06/24/20 06/24/20 04:41 05:57 06:30 WBC 34.3 H RBC Hgb 10.9 L Hct 32.6 L RDW Lymph % (Auto) 2.0 L Lymph # (Auto) 0.7 L [place] # (Auto) 1.2 H Seg Neuts % (Manual) 96.0 H Lymphocytes % (Manual) 3.0 L Nucleated RBC % Seg Neutrophils # 32.3 H Seg Neutrophils # Man 32.9 H Lymphocytes # (Manual) 1.0 L Monocytes # (Manual) PT INR APTT D-Dimer Heparin Anti-Xa Level ABG pH POC ABG pCO2 POC ABG pO2 71.1 L ABG Hemoglobin ABG Oxyhemoglobin 92.4 L ABG Sodium 115.6 L ABG Potassium ABG Chloride ABG Glucose 159 H Carboxyhemoglobin Sodium Potassium Chloride Carbon Dioxide BUN Creatinine Glucose POC Glucose 143 H Lactic Acid Calcium Phosphorus Magnesium Ferritin AST ALT Lactate Dehydrogenase Total Creatine Kinase C-Reactive Protein Total Protein Albumin Triglycerides Arterial Blood Glucose 159 H Arterial Blood Ionized Calcium 4.2 L Urine Creatinine Urine Chloride Vancomycin Trough Coronavirus (PCR) 06/24/20 06/24/20 06/24/20 07:03 09:37 11:56 WBC RBC Hgb Hct RDW Lymph % (Auto) Lymph # (Auto) [place] # (Auto) Seg Neuts % (Manual) Lymphocytes % (Manual) Nucleated RBC % Seg Neutrophils # Seg Neutrophils # Man Lymphocytes # (Manual) Monocytes # (Manual) PT INR APTT D-Dimer Heparin Anti-Xa Level 0.26 L ABG pH POC ABG pCO2 POC ABG pO2 ABG Hemoglobin ABG Oxyhemoglobin ABG Sodium ABG Potassium ABG Chloride ABG Glucose Carboxyhemoglobin Sodium Potassium 5.1 H Chloride Carbon Dioxide BUN 103 H Creatinine 5.0 H Glucose 163 H POC Glucose 149 H Lactic Acid Calcium 7.6 L Phosphorus Magnesium Ferritin AST ALT Lactate Dehydrogenase Total Creatine Kinase C-Reactive Protein Total Protein Albumin Triglycerides Arterial Blood Glucose Arterial Blood Ionized Calcium Urine Creatinine Urine Chloride Vancomycin Trough Coronavirus (PCR) 06/24/20 06/25/20 06/25/20 18:09 01:05 03:00 WBC RBC Hgb 10.6 L Hct 32.1 L RDW Lymph % (Auto) Lymph # (Auto) [place] # (Auto) Seg Neuts % (Manual) Lymphocytes % (Manual) Nucleated RBC % Seg Neutrophils # Seg Neutrophils # Man Lymphocytes # (Manual) Monocytes # (Manual) PT INR APTT D-Dimer Heparin Anti-Xa Level ABG pH POC ABG pCO2 POC ABG pO2 ABG Hemoglobin ABG Oxyhemoglobin ABG Sodium ABG Potassium ABG Chloride ABG Glucose Carboxyhemoglobin Sodium Potassium Chloride Carbon Dioxide BUN Creatinine Glucose POC Glucose 141 H 137 H Lactic Acid Calcium Phosphorus Magnesium Ferritin AST ALT Lactate Dehydrogenase Total Creatine Kinase C-Reactive Protein Total Protein Albumin Triglycerides Arterial Blood Glucose Arterial Blood Ionized Calcium Urine Creatinine Urine Chloride Vancomycin Trough Coronavirus (PCR) 06/25/20 06/25/20 06/25/20 03:48 05:17 12:08 WBC RBC Hgb Hct RDW Lymph % (Auto) Lymph # (Auto) [place] # (Auto) Seg Neuts % (Manual) Lymphocytes % (Manual) Nucleated RBC % Seg Neutrophils # Seg Neutrophils # Man Lymphocytes # (Manual) Monocytes # (Manual) PT INR APTT D-Dimer Heparin Anti-Xa Level ABG pH POC ABG pCO2 29.4 L POC ABG pO2 67.1 L ABG Hemoglobin 11.5 L ABG Oxyhemoglobin ABG Sodium 124.1 L ABG Potassium 4.6 H ABG Chloride ABG Glucose 159 H Carboxyhemoglobin Sodium Potassium Chloride Carbon Dioxide BUN Creatinine Glucose POC Glucose 149 H 150 H Lactic Acid Calcium Phosphorus Magnesium Ferritin AST ALT Lactate Dehydrogenase Total Creatine Kinase C-Reactive Protein Total Protein Albumin Triglycerides Arterial Blood Glucose 159 H Arterial Blood Ionized Calcium 4.2 L Urine Creatinine Urine Chloride Vancomycin Trough Coronavirus (PCR) 06/25/20 06/25/20 06/25/20 16:27 16:35 17:27 WBC RBC Hgb Hct RDW Lymph % (Auto) Lymph # (Auto) [place] # (Auto) Seg Neuts % (Manual) Lymphocytes % (Manual) Nucleated RBC % Seg Neutrophils # Seg Neutrophils # Man Lymphocytes # (Manual) Monocytes # (Manual) PT INR APTT D-Dimer Heparin Anti-Xa Level < 0.10 L ABG pH POC ABG pCO2 POC ABG pO2 ABG Hemoglobin ABG Oxyhemoglobin ABG Sodium ABG Potassium ABG Chloride ABG Glucose Carboxyhemoglobin Sodium Potassium Chloride Carbon Dioxide BUN Creatinine Glucose POC Glucose 143 H 156 H Lactic Acid Calcium Phosphorus Magnesium Ferritin AST ALT Lactate Dehydrogenase Total Creatine Kinase C-Reactive Protein Total Protein Albumin Triglycerides Arterial Blood Glucose Arterial Blood Ionized Calcium Urine Creatinine Urine Chloride Vancomycin Trough Coronavirus (PCR) 06/25/20 06/25/20 06/25/20 20:00 20:55 23:10 WBC 32.7 H RBC 3.06 L Hgb 9.0 L 9.5 L Hct 26.7 L 28.6 L RDW Lymph % (Auto) Lymph # (Auto) [place] # (Auto) Seg Neuts % (Manual) Lymphocytes % (Manual) 2.0 L Nucleated RBC % Seg Neutrophils # Seg Neutrophils # Man 30.7 H Lymphocytes # (Manual) 0.7 L Monocytes # (Manual) 1.3 H PT 17.7 H INR 1.47 H APTT 65.8 H* D-Dimer Heparin Anti-Xa Level ABG pH POC ABG pCO2 POC ABG pO2 ABG Hemoglobin ABG Oxyhemoglobin ABG Sodium ABG Potassium ABG Chloride ABG Glucose Carboxyhemoglobin Sodium Potassium Chloride Carbon Dioxide BUN Creatinine Glucose POC Glucose Lactic Acid Calcium Phosphorus Magnesium Ferritin AST ALT Lactate Dehydrogenase Total Creatine Kinase C-Reactive Protein Total Protein Albumin Triglycerides Arterial Blood Glucose Arterial Blood Ionized Calcium Urine Creatinine Urine Chloride Vancomycin Trough Coronavirus (PCR) 06/25/20 06/26/20 06/26/20 23:14 01:30 03:25 WBC RBC Hgb Hct RDW Lymph % (Auto) Lymph # (Auto) [place] # (Auto) Seg Neuts % (Manual) Lymphocytes % (Manual) Nucleated RBC % Seg Neutrophils # Seg Neutrophils # Man Lymphocytes # (Manual) Monocytes # (Manual) PT INR APTT D-Dimer Heparin Anti-Xa Level < 0.10 L ABG pH POC ABG pCO2 POC ABG pO2 ABG Hemoglobin 11.8 L ABG Oxyhemoglobin ABG Sodium 127.1 L ABG Potassium 5.4 H ABG Chloride ABG Glucose 155 H Carboxyhemoglobin 0.3 L Sodium Potassium Chloride Carbon Dioxide BUN Creatinine Glucose POC Glucose 148 H Lactic Acid Calcium Phosphorus Magnesium Ferritin AST ALT Lactate Dehydrogenase Total Creatine Kinase C-Reactive Protein Total Protein Albumin Triglycerides Arterial Blood Glucose 155 H Arterial Blood Ionized Calcium 4.2 L Urine Creatinine Urine Chloride Vancomycin Trough Coronavirus (PCR) 06/26/20 06/26/20 06/26/20 03:59 05:14 05:47 WBC 36.5 H RBC 3.26 L Hgb 9.7 L Hct 28.2 L RDW Lymph % (Auto) Lymph # (Auto) [place] # (Auto) Seg Neuts % (Manual) 92.0 H Lymphocytes % (Manual) 4.0 L Nucleated RBC % Seg Neutrophils # Seg Neutrophils # Man 33.6 H Lymphocytes # (Manual) Monocytes # (Manual) PT INR APTT D-Dimer Heparin Anti-Xa Level ABG pH POC ABG pCO2 POC ABG pO2 ABG Hemoglobin ABG Oxyhemoglobin ABG Sodium ABG Potassium ABG Chloride ABG Glucose Carboxyhemoglobin Sodium Potassium 5.9 H Chloride Carbon Dioxide 20 L BUN 144 H Creatinine 6.4 H Glucose 149 H POC Glucose 128 H Lactic Acid Calcium 7.6 L Phosphorus Magnesium Ferritin AST ALT Lactate Dehydrogenase Total Creatine Kinase C-Reactive Protein Total Protein Albumin Triglycerides Arterial Blood Glucose Arterial Blood Ionized Calcium Urine Creatinine Urine Chloride Vancomycin Trough Coronavirus (PCR) 06/26/20 06/26/20 06/26/20 05:47 12:47 17:42 WBC RBC Hgb Hct RDW Lymph % (Auto) Lymph # (Auto) [place] # (Auto) Seg Neuts % (Manual) Lymphocytes % (Manual) Nucleated RBC % Seg Neutrophils # Seg Neutrophils # Man Lymphocytes # (Manual) Monocytes # (Manual) PT 17.4 H INR 1.44 H APTT D-Dimer Heparin Anti-Xa Level ABG pH POC ABG pCO2 POC ABG pO2 ABG Hemoglobin ABG Oxyhemoglobin ABG Sodium ABG Potassium ABG Chloride ABG Glucose Carboxyhemoglobin Sodium Potassium Chloride Carbon Dioxide BUN Creatinine Glucose POC Glucose 124 H 127 H Lactic Acid Calcium Phosphorus Magnesium Ferritin AST ALT Lactate Dehydrogenase Total Creatine Kinase C-Reactive Protein Total Protein Albumin Triglycerides Arterial Blood Glucose Arterial Blood Ionized Calcium Urine Creatinine Urine Chloride Vancomycin Trough Coronavirus (PCR) 06/26/20 06/27/20 06/27/20 23:30 03:32 04:00 WBC RBC Hgb 8.7 L Hct 26.4 L RDW Lymph % (Auto) Lymph # (Auto) [place] # (Auto) Seg Neuts % (Manual) Lymphocytes % (Manual) Nucleated RBC % Seg Neutrophils # Seg Neutrophils # Man Lymphocytes # (Manual) Monocytes # (Manual) PT INR APTT D-Dimer Heparin Anti-Xa Level ABG pH 7.298 L POC ABG pCO2 POC ABG pO2 ABG Hemoglobin 9.6 L ABG Oxyhemoglobin ABG Sodium 124.4 L ABG Potassium 6.6 H ABG Chloride ABG Glucose 136 H Carboxyhemoglobin Sodium Potassium Chloride Carbon Dioxide BUN Creatinine Glucose POC Glucose 123 H Lactic Acid Calcium Phosphorus Magnesium Ferritin AST ALT Lactate Dehydrogenase Total Creatine Kinase C-Reactive Protein Total Protein Albumin Triglycerides Arterial Blood Glucose 136 H Arterial Blood Ionized Calcium 4.1 L Urine Creatinine Urine Chloride Vancomycin Trough Coronavirus (PCR) 06/27/20 06/27/20 06/27/20 05:26 10:14 11:58 WBC RBC Hgb Hct RDW Lymph % (Auto) Lymph # (Auto) [place] # (Auto) Seg Neuts % (Manual) Lymphocytes % (Manual) Nucleated RBC % Seg Neutrophils # Seg Neutrophils # Man Lymphocytes # (Manual) Monocytes # (Manual) PT INR APTT D-Dimer Heparin Anti-Xa Level ABG pH POC ABG pCO2 POC ABG pO2 ABG Hemoglobin ABG Oxyhemoglobin ABG Sodium ABG Potassium ABG Chloride ABG Glucose Carboxyhemoglobin Sodium 136 L Potassium 7.0 H* Chloride 97.8 L Carbon Dioxide BUN 172 H Creatinine 7.4 H Glucose 129 H POC Glucose 124 H 115 H Lactic Acid Calcium 7.6 L Phosphorus Magnesium Ferritin AST ALT Lactate Dehydrogenase Total Creatine Kinase C-Reactive Protein Total Protein Albumin Triglycerides Arterial Blood Glucose Arterial Blood Ionized Calcium Urine Creatinine Urine Chloride Vancomycin Trough Coronavirus (PCR) 06/27/20 06/27/20 06/27/20 17:32 18:30 23:24 WBC RBC Hgb Hct RDW Lymph % (Auto) Lymph # (Auto) [place] # (Auto) Seg Neuts % (Manual) Lymphocytes % (Manual) Nucleated RBC % Seg Neutrophils # Seg Neutrophils # Man Lymphocytes # (Manual) Monocytes # (Manual) PT INR APTT D-Dimer Heparin Anti-Xa Level ABG pH POC ABG pCO2 POC ABG pO2 ABG Hemoglobin ABG Oxyhemoglobin ABG Sodium ABG Potassium ABG Chloride ABG Glucose Carboxyhemoglobin Sodium Potassium 7.3 H* Chloride Carbon Dioxide BUN Creatinine Glucose POC Glucose 122 H 116 H Lactic Acid Calcium Phosphorus Magnesium Ferritin AST ALT Lactate Dehydrogenase Total Creatine Kinase C-Reactive Protein Total Protein Albumin Triglycerides Arterial Blood Glucose Arterial Blood Ionized Calcium Urine Creatinine Urine Chloride Vancomycin Trough Coronavirus (PCR) 06/28/20 06/28/20 06/28/20 00:00 02:16 05:37 WBC RBC Hgb Hct RDW Lymph % (Auto) Lymph # (Auto) [place] # (Auto) Seg Neuts % (Manual) Lymphocytes % (Manual) Nucleated RBC % Seg Neutrophils # Seg Neutrophils # Man Lymphocytes # (Manual) Monocytes # (Manual) PT INR APTT D-Dimer Heparin Anti-Xa Level ABG pH POC ABG pCO2 POC ABG pO2 79.0 L ABG Hemoglobin 11.7 L ABG Oxyhemoglobin ABG Sodium 128.1 L ABG Potassium 6.6 H ABG Chloride ABG Glucose 124 H Carboxyhemoglobin Sodium Potassium 7.3 H* Chloride Carbon Dioxide BUN Creatinine Glucose POC Glucose 115 H Lactic Acid Calcium Phosphorus Magnesium Ferritin AST ALT Lactate Dehydrogenase Total Creatine Kinase C-Reactive Protein Total Protein Albumin Triglycerides Arterial Blood Glucose 124 H Arterial Blood Ionized Calcium 4.2 L Urine Creatinine Urine Chloride Vancomycin Trough Coronavirus (PCR) 06/28/20 06/28/20 06/28/20 10:03 10:03 11:51 WBC 33.6 H RBC 3.03 L Hgb 8.9 L Hct 27.0 L RDW Lymph % (Auto) Lymph # (Auto) [place] # (Auto) Seg Neuts % (Manual) Lymphocytes % (Manual) Nucleated RBC % Seg Neutrophils # Seg Neutrophils # Man Lymphocytes # (Manual) Monocytes # (Manual) PT INR APTT D-Dimer Heparin Anti-Xa Level ABG pH POC ABG pCO2 POC ABG pO2 ABG Hemoglobin ABG Oxyhemoglobin ABG Sodium ABG Potassium ABG Chloride ABG Glucose Carboxyhemoglobin Sodium 136 L Potassium 6.5 H* Chloride Carbon Dioxide 20 L BUN 129 H Creatinine 5.8 H Glucose 113 H POC Glucose 107 H Lactic Acid Calcium 7.6 L Phosphorus Magnesium Ferritin AST ALT Lactate Dehydrogenase Total Creatine Kinase C-Reactive Protein Total Protein Albumin Triglycerides Arterial Blood Glucose Arterial Blood Ionized Calcium Urine Creatinine Urine Chloride Vancomycin Trough Coronavirus (PCR) 06/28/20 06/28/20 06/29/20 17:45 Unknown 03:15 WBC RBC Hgb Hct RDW Lymph % (Auto) Lymph # (Auto) [place] # (Auto) Seg Neuts % (Manual) Lymphocytes % (Manual) Nucleated RBC % Seg Neutrophils # Seg Neutrophils # Man Lymphocytes # (Manual) Monocytes # (Manual) PT INR APTT D-Dimer Heparin Anti-Xa Level ABG pH POC ABG pCO2 POC ABG pO2 ABG Hemoglobin 7.8 L ABG Oxyhemoglobin ABG Sodium 127.4 L ABG Potassium 5.5 H ABG Chloride 97.0 L ABG Glucose 96 H Carboxyhemoglobin Sodium Potassium 5.4 H Chloride Carbon Dioxide BUN Creatinine Glucose POC Glucose 117 H Lactic Acid Calcium Phosphorus Magnesium Ferritin AST ALT Lactate Dehydrogenase Total Creatine Kinase C-Reactive Protein Total Protein Albumin Triglycerides Arterial Blood Glucose 96 H Arterial Blood Ionized Calcium 4.0 L Urine Creatinine Urine Chloride Vancomycin Trough Coronavirus (PCR) 06/29/20 06/29/20 06/29/20 03:45 Unknown Unknown WBC RBC Hgb Hct RDW Lymph % (Auto) Lymph # (Auto) [place] # (Auto) Seg Neuts % (Manual) Lymphocytes % (Manual) Nucleated RBC % Seg Neutrophils # Seg Neutrophils # Man Lymphocytes # (Manual) Monocytes # (Manual) PT INR APTT D-Dimer Heparin Anti-Xa Level ABG pH POC ABG pCO2 POC ABG pO2 ABG Hemoglobin ABG Oxyhemoglobin ABG Sodium ABG Potassium ABG Chloride ABG Glucose Carboxyhemoglobin Sodium 135 L Potassium 6.0 H 6.1 H* Chloride 94.8 L Carbon Dioxide BUN 109 H 114 H Creatinine 5.5 H Glucose POC Glucose Lactic Acid Calcium 7.4 L Phosphorus Magnesium Ferritin AST 47 H ALT Lactate Dehydrogenase Total Creatine Kinase C-Reactive Protein Total Protein 4.9 L Albumin 2.2 L Triglycerides Arterial Blood Glucose Arterial Blood Ionized Calcium Urine Creatinine Urine Chloride Vancomycin Trough Coronavirus (PCR) 06/29/20 06/29/20 06/30/20 Unknown Unknown 03:32 WBC 20.7 H RBC 2.57 L Hgb 7.6 L Hct 23.0 L RDW Lymph % (Auto) Lymph # (Auto) [place] # (Auto) Seg Neuts % (Manual) Lymphocytes % (Manual) Nucleated RBC % Seg Neutrophils # Seg Neutrophils # Man Lymphocytes # (Manual) Monocytes # (Manual) PT INR APTT D-Dimer Heparin Anti-Xa Level ABG pH POC ABG pCO2 POC ABG pO2 ABG Hemoglobin 11.4 L ABG Oxyhemoglobin ABG Sodium 130.1 L ABG Potassium 5.0 H ABG Chloride ABG Glucose Carboxyhemoglobin Sodium Potassium Chloride Carbon Dioxide BUN Creatinine Glucose POC Glucose Lactic Acid Calcium Phosphorus Magnesium Ferritin AST ALT Lactate Dehydrogenase Total Creatine Kinase 618 H C-Reactive Protein Total Protein Albumin Triglycerides Arterial Blood Glucose Arterial Blood Ionized Calcium 3.9 L Urine Creatinine Urine Chloride Vancomycin Trough Coronavirus (PCR) 06/30/20 06/30/20 03:50 03:50 WBC 13.1 H RBC Hgb Hct RDW Lymph % (Auto) Lymph # (Auto) [place] # (Auto) Seg Neuts % (Manual) 95.0 H Lymphocytes % (Manual) 3.0 L Nucleated RBC % Seg Neutrophils # Seg Neutrophils # Man 12.4 H Lymphocytes # (Manual) 0.4 L Monocytes # (Manual) PT INR APTT D-Dimer Heparin Anti-Xa Level ABG pH POC ABG pCO2 POC ABG pO2 ABG Hemoglobin ABG Oxyhemoglobin ABG Sodium ABG Potassium ABG Chloride ABG Glucose Carboxyhemoglobin Sodium 135 L Potassium 5.4 H D Chloride 93.6 L Carbon Dioxide BUN 85 H Creatinine 4.6 H Glucose POC Glucose Lactic Acid Calcium 7.1 L Phosphorus 9.40 H Magnesium Ferritin AST ALT Lactate Dehydrogenase Total Creatine Kinase C-Reactive Protein Total Protein Albumin Triglycerides Arterial Blood Glucose Arterial Blood Ionized Calcium Urine Creatinine Urine Chloride Vancomycin Trough Coronavirus (PCR) Additional Studies: CT Brain negative Allied health notes reviewed: nursing
--- NOTE | 2020-06-30 11:42 | Progress Note ---
Assessment and Plan Optimize HR - increase amio gtt back to 1mg/min and give additional IV amio bolus. Cont heparin gtt if no contraindications. F/u BMP and CBC in AM. Pt is critically ill. Overall guarded prognosis. The patient has been seen in conjunction with Dr. Adarsh Santos who agrees with the assessment and plan of care. - Patient Problems (1) Acute respiratory failure with hypoxia Current Visit: Yes Status: Acute (2) Pneumonia due to COVID-19 virus Current Visit: Yes Status: Acute (3) Sepsis Current Visit: Yes Status: Acute Qualifiers: Severe sepsis acute organ dysfunction type: acute respiratory failure Severe sepsis shock status: with septic shock (4) Atrial fibrillation with rapid ventricular response Current Visit: Yes Status: Acute (5) Acute renal failure Current Visit: Yes Status: Acute (6) Elevated LFTs Current Visit: Yes Status: Acute Subjective Date of service: 06/30/20 Principal diagnosis: ARF/Septic Shock/COVID-19 PNA, AF with RVR Interval history: pt remains intubated, sedated. intermittently requiring vasopressor support. on amio gtt. tele reviewed - in AFib/AFlutter HR 100s - 120s. Objective Last Vital Signs Temp 98.4 F 06/30/20 09:30 Pulse 108 H 06/30/20 11:30 Resp 25 H 06/30/20 10:31 BP 101/54 06/30/20 11:30 Pulse Ox 95 06/30/20 11:27 - Physical Examination General: Other (intubated, lethargic) Neck: Positive: neck supple Cardiac: Positive: irregularly irregular, S1/S2, Tachycardia Lungs: Positive: Decreased Breath Sounds, Oxygen, Ventilated Respirations Neuro: Positive: Other (intubated, lethargic) Abdomen: Positive: Soft Skin: Negative: Rash, Wound Extremities: Present: upper extr. pulses, lower extr. pulses - Labs and Meds Cardiac Enzymes 06/29/20 Range/Units 03:45 AST 47 H (5-40) units/L CBC 06/29/20 06/30/20 Range/Units Unknown 03:50 WBC 20.7 H 13.1 H (4.5-11.0) K/mm3 RBC 2.57 L 4.64 (3.65-5.03) M/mm3 Hgb 7.6 L 13.9 D (11.8-15.2) gm/dl Hct 23.0 L 41.0 D (35.5-45.6) % Plt Count 162 189 (140-440) K/mm3 Comprehensive Metabolic Panel 06/29/20 06/29/20 06/29/20 Range/Units 03:45 17:15 Unknown Sodium 135 L (137-145) mmol/L Potassium 6.0 H 4.1 D 6.1 H* (3.6-5.0) mmol/L Chloride 94.8 L (98-107) mmol/L Carbon Dioxide 24 (22-30) mmol/L BUN 109 H (9-20) mg/dL Creatinine 5.5 H (0.8-1.3) mg/dL Glucose 98 (75-100) mg/dL Calcium 7.4 L (8.4-10.2) mg/dL AST 47 H (5-40) units/L ALT 50 (7-56) units/L Alkaline Phosphatase 70 (35-129) units/L Total Protein 4.9 L (6.3-8.2) g/dL Albumin 2.2 L (3.9-5) g/dL 06/29/20 06/30/20 Range/Units Unknown 03:50 Sodium 135 L (137-145) mmol/L Potassium 5.4 H D (3.6-5.0) mmol/L Chloride 93.6 L (98-107) mmol/L Carbon Dioxide 24 (22-30) mmol/L BUN 114 H 85 H (9-20) mg/dL Creatinine 4.6 H (0.8-1.3) mg/dL Glucose 92 (75-100) mg/dL Calcium 7.1 L (8.4-10.2) mg/dL AST (5-40) units/L ALT (7-56) units/L Alkaline Phosphatase (35-129) units/L Total Protein (6.3-8.2) g/dL Albumin (3.9-5) g/dL - Imaging and Cardiology EKG: report reviewed, image reviewed - EKG Sinus rhythms and dysrhythmias: sinus tachycardia - Allied health notes Allied health notes reviewed: nursing
--- NOTE | 2020-06-30 11:46 | Progress Note ---
Assessment and Plan Cultures: SARS CoV2 PCR: Positive as outpatient Blood culture: no growth Sputum culture: no growth A/P: 59-year-old male with obesity, obesity hypoventilation syndrome: #Severe sepsis with septic shock: likely secondary to critical COVID-19 pneumonia. Blood cultures so far negative. ?Bacterial pneumonia component, but sputum culture with no growth. On empiric abx, steroids. Completed Remdesivir. #Critical COVID-19 pneumonia: Procalcitonin also high, treating with empiric antibiotics. #Acute hypoxic respiratory failure: on the vent #Transaminitis: Likely secondary to COVID-19. #GIRISH: creatinine elevated. Recs: -Continue steroids for at least total 10 days -s/p Remdesivir -Continue empiric IV Cefepime x 7 days given ongoing pressor use -prophylactic anticoagulation based on d-dimer per hospital protocol -trend ferritin, LDH, d-dimer, CRP every 2-3 days for risk stratification and to assess disease progression -White count improving, repeat procalcitonin in the AM. -extremely poor prognosis Юлия Finney MD [facility] O: [phone] F: [phone] Subjective Date of service: 06/30/20 Principal diagnosis: ARF/Septic Shock/COVID-19 PNA, AF with RVR Interval history: Afebrile but Tmax of 100.3 overnight. Objective - Exam Narrative Exam: Physical exam deferred due to PPE conservation strategy. Please refer to primary team's note. - Constitutional Vitals: Vital Signs Temp Pulse Resp BP Pulse Ox 98.4 F 108 H 25 H 101/54 95 06/30/20 09:30 06/30/20 11:30 06/30/20 10:31 06/30/20 11:30 06/30/20 11:27 Temperature -Last 24 Hours Temperature 98.4 F Temperature 98.4 F Temperature 100.3 F Temperature 99.2 F Temperature 99.2 F Temperature 99.6 F - Labs CBC & Chem 7: 06/30/20 03:50 06/30/20 03:50 Labs: Abnormal lab results 06/29/20 06/29/20 06/29/20 Range/Units 03:45 Unknown Unknown WBC (4.5-11.0) K/mm3 RBC (3.65-5.03) M/mm3 Hgb (11.8-15.2) gm/dl Hct (35.5-45.6) % Seg Neuts % (Manual) (40.0-70.0) % Lymphocytes % (Manual) (13.4-35.0) % Seg Neutrophils # Man (1.8-7.7) K/mm3 Lymphocytes # (Manual) (1.2-5.4) K/mm3 ABG Hemoglobin (12.0-17.5) ABG Sodium (136.0-145.0) mmol/L ABG Potassium (3.40-4.50) mmol/L Sodium 135 L (137-145) mmol/L Potassium 6.0 H 6.1 H* (3.6-5.0) mmol/L Chloride 94.8 L (98-107) mmol/L BUN 109 H 114 H (9-20) mg/dL Creatinine 5.5 H (0.8-1.3) mg/dL Calcium 7.4 L (8.4-10.2) mg/dL Phosphorus (2.5-4.5) mg/dL AST 47 H (5-40) units/L Total Creatine Kinase (55-170) units/L Total Protein 4.9 L (6.3-8.2) g/dL Albumin 2.2 L (3.9-5) g/dL Arterial Blood Ionized Calcium (4.6-5.3) mg/dL 06/29/20 06/29/20 06/30/20 Range/Units Unknown Unknown 03:32 WBC 20.7 H (4.5-11.0) K/mm3 RBC 2.57 L (3.65-5.03) M/mm3 Hgb 7.6 L (11.8-15.2) gm/dl Hct 23.0 L (35.5-45.6) % Seg Neuts % (Manual) (40.0-70.0) % Lymphocytes % (Manual) (13.4-35.0) % Seg Neutrophils # Man (1.8-7.7) K/mm3 Lymphocytes # (Manual) (1.2-5.4) K/mm3 ABG Hemoglobin 11.4 L (12.0-17.5) ABG Sodium 130.1 L (136.0-145.0) mmol/L ABG Potassium 5.0 H (3.40-4.50) mmol/L Sodium (137-145) mmol/L Potassium (3.6-5.0) mmol/L Chloride (98-107) mmol/L BUN (9-20) mg/dL Creatinine (0.8-1.3) mg/dL Calcium (8.4-10.2) mg/dL Phosphorus (2.5-4.5) mg/dL AST (5-40) units/L Total Creatine Kinase 618 H (55-170) units/L Total Protein (6.3-8.2) g/dL Albumin (3.9-5) g/dL Arterial Blood Ionized Calcium 3.9 L (4.6-5.3) mg/dL 06/30/20 06/30/20 Range/Units 03:50 03:50 WBC 13.1 H (4.5-11.0) K/mm3 RBC (3.65-5.03) M/mm3 Hgb (11.8-15.2) gm/dl Hct (35.5-45.6) % Seg Neuts % (Manual) 95.0 H (40.0-70.0) % Lymphocytes % (Manual) 3.0 L (13.4-35.0) % Seg Neutrophils # Man 12.4 H (1.8-7.7) K/mm3 Lymphocytes # (Manual) 0.4 L (1.2-5.4) K/mm3 ABG Hemoglobin (12.0-17.5) ABG Sodium (136.0-145.0) mmol/L ABG Potassium (3.40-4.50) mmol/L Sodium 135 L (137-145) mmol/L Potassium 5.4 H D (3.6-5.0) mmol/L Chloride 93.6 L (98-107) mmol/L BUN 85 H (9-20) mg/dL Creatinine 4.6 H (0.8-1.3) mg/dL Calcium 7.1 L (8.4-10.2) mg/dL Phosphorus 9.40 H (2.5-4.5) mg/dL AST (5-40) units/L Total Creatine Kinase (55-170) units/L Total Protein (6.3-8.2) g/dL Albumin (3.9-5) g/dL Arterial Blood Ionized Calcium (4.6-5.3) mg/dL
[2020-06-30] MEDS ORDERED: AMIODARONE 150 MG in DEXTROSE 5% IN WATER 97 ML IV ONE (12:00)
[2020-06-30] MEDS: EPOETIN ALFA-EPBX 10,000 UNIT/1 ML VIAL IV PRN (12:58)
[2020-06-30] MEDS: HEPARIN 10,000 UNIT/1 ML VIAL IV PRN (13:36)
[2020-06-30 13:41] LABS: Hematocrit 23.2 % (35.5-45.6); Hemoglobin 7.8 gm/dl (11.8-15.2)
[2020-06-30] MEDS: NORepinephrine/NS 4 MG-250 ML 4 MG/250 ML BAG IV SCH (14:01)
--- NOTE | 2020-06-30 16:21 | Progress Note ---
Assessment and Plan 59-year-old white male who was admitted for pneumonia secondary to Covid with associated respiratory failure and sepsis. Hyperkalemia -Treated aggressively -Calcium gluconate IV sodium bicarbonate and Kayexalate given Acute metabolic encephalopathy -Due to severe sepsis and severe hypoxia -CT head ordered (patient is too unstable to do the scan), currently intubated, continue supportive care with frequent neuro check Acute hypoxic respiratory failure -Due to severe COVID-19 pneumonia -Intubated following admission overnight as patient was unable to maintain oxygenation with 100% FiO2 with BiPAP -Critical care following, frequent nebulizer breathing treatment, empiric steroid Severe septic shock -Patient currently on 2 pressor support -Wean off as tolerated COVID-19 pneumonia -Follow inflammatory markers, ID consulted --Patient initially tested positive for COVID-19 virus about 2 weeks before this admission -CXR shows patchy parenchymal disease which represent pulmonary edema or atypical pneumonia -Placed on dexamethasone for total 10 days and completed remdesivir total 5 days -Continue empiric antibiotics for now per ID recommendation -Droplet/contact isolation -Continue SPO2 monitoring -Supplemental oxygen as needed -Pulmonary hygiene, Prone intermittently to improve oxygenation -Vitamin C, vitamin D, zinc -Anticoagulation per protocol -Lasix IV as needed to prevent pulmonary edema GIRISH, likely ATN -Follow BMP daily, avoid nephrotoxins -Consulted nephrology, follow recommendations -Renal function continues to decline, started on hemodialysis since 06/22/20 hypokalemia, repleted Supraventricular tachycardia/paroxysmal atrial fibrillation -likely due to severe sepsis -Patient currently on 2 pressor, will initiate IV amiodarone drip for rate control if needed -Consulted cardiology, echo ordered currently pending -Placed on heparin drip Elevated LFT, due to shock liver from severe sepsis and COVID-19 infection -Continue to trend Morbid obesity, -Associated with poor outcome with Covid infection -need counseling for diet and exercise and healthy lifestyles once clinically stable as outpatient DVT prophylaxis, per Covid protocol Full CODE STATUS Poor prognosis The high probability of a clinically significant, sudden or life threatening deterioration of the [cvs, DIETARY SERVICES MANAGER, 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 The aggregate critical c are time was [42] minutes. This time is in addition to time spent performing reported procedures but includes the following: [x] Data Review and interpretation [x] Patient assessment and monitoring of vital signs [x] Documentation [x] Medication orders and management daily course: 06/18: Patient got intubated overnight. Patient was placed on BiPAP to maintain oxygenation with 100% FiO2 but apparently he found to take off his argueta which made his oxygen saturation go down at 60s/50s and patient was found altered mental status. Code met was called immediately. Patient was transferred to ICU and intubated, patient currently on 2 pressors, intubated with 100% FiO2, renal function noted to be decline, nephrology consulted. Discussed with [place] physician Dr. Thompson and requested call back on Saturday. Poor prognosis, continue to monitor with aggressive supportive care. Also called family/ to update clinical status. 06/19: Repeat COVID test was positive. cont cefepime, remdesivir per ID recommendation. follow inflammatory markers, cbc, bmp. placed on heparin drip for atrial fib 06/20: Remains on mechanical ventilation, on 2 pressors, on heparin drip. discussed with and daughter by phone. Renal function declining. cont supportive care for now. 06/21: Renal function cont to decline, urine outpt sig decreased. started on lasix 80mg BID, plan to follow urine output, if no improvement patient need to start on HD. called and daughter today. updated all clinical details 06/22: Renal function continues to decline with uremia and hyperkalemia. Will need to proceed with hemodialysis. Nephrology discussed with the family and they agrees for the hemodialysis. Patient remains on pressor support and mechanical ventilation. Vas-Cath placed today by vascular started on hemodialysis today. 06/23: 2nd round of HD today, remains on 2 pressors. per RN not tolerating TF, has no record of BM since 06/18. start on stool softner. follow cbc/bmp. updated family( and daughter) by phone -all question answered to best of my knowledge and to their satisfaction. Patient remains critically ill with a very poor prognosis. 06/24: Continue supportive care, Very poor prognosis, Visual Merchandising Assistant to discuss with family in am due to the futility of the condition. 06/25/2020 continue supportive care very poor prognosis 06/26/2020 continue supportive care very poor prognosis family updated 06/27/2020 continue supportive care and weaning if possible 06/28/2020 continue supportive care, talk with at length 06/29: Resumed care. K level persistently high. give one dose of bicarbonate, plan for HD today, recheck k after HD. updated family by phone 06/30: updated family by phone. Patient remains on amiodarone drip and vasopressin. Getting HD at the bedside. Tolerating tube feeding at low rate. Subjective Date of service: 06/30/20 Principal diagnosis: ARF/Septic Shock/COVID-19 PNA, AF with RVR Objective - Constitutional Vitals: Vital Signs - 12hr 06/30/20 06/30/20 06/30/20 04:30 04:45 05:00 Temperature Pulse Rate 121 H 128 H 135 H Respiratory 17 15 25 H Rate Blood Pressure 156/76 149/75 151/73 O2 Sat by Pulse 94 94 93 Oximetry O2 Sat by Pulse Oximetry [ Anterior Bilateral Throughout] 06/30/20 06/30/20 06/30/20 05:15 05:31 05:45 Temperature Pulse Rate 129 H 122 H 123 H Respiratory 21 31 H 30 H Rate Blood Pressure 143/66 114/52 113/57 O2 Sat by Pulse 94 93 95 Oximetry O2 Sat by Pulse Oximetry [ Anterior Bilateral Throughout] 06/30/20 06/30/20 06/30/20 06:01 06:15 06:30 Temperature Pulse Rate 119 H 124 H 121 H Respiratory 17 30 H 25 H Rate Blood Pressure 146/73 111/54 108/48 O2 Sat by Pulse 95 94 95 Oximetry O2 Sat by Pulse Oximetry [ Anterior Bilateral Throughout] 06/30/20 06/30/20 06/30/20 06:45 07:00 07:15 Temperature Pulse Rate 129 H 135 H 117 H Respiratory 26 H 31 H 28 H Rate Blood Pressure 119/56 111/55 112/51 O2 Sat by Pulse 95 96 96 Oximetry O2 Sat by Pulse Oximetry [ Anterior Bilateral Throughout] 06/30/20 06/30/20 06/30/20 07:30 07:45 07:55 Temperature Pulse Rate 112 H 124 H 121 H Respiratory 30 H 21 Rate Blood Pressure 104/59 110/56 108/48 O2 Sat by Pulse 97 96 95 Oximetry O2 Sat by Pulse Oximetry [ Anterior Bilateral Throughout] 06/30/20 06/30/20 06/30/20 08:00 08:15 08:30 Temperature Pulse Rate 107 H 106 H 119 H Respiratory 30 H 30 H 27 H Rate Blood Pressure 113/53 121/53 118/58 O2 Sat by Pulse 97 97 97 Oximetry O2 Sat by Pulse Oximetry [ Anterior Bilateral Throughout] 06/30/20 06/30/20 06/30/20 08:45 09:00 09:15 Temperature Pulse Rate 107 H 112 H 110 H Respiratory 30 H 30 H 30 H Rate Blood Pressure 109/55 103/54 111/52 O2 Sat by Pulse 97 97 96 Oximetry O2 Sat by Pulse Oximetry [ Anterior Bilateral Throughout] 06/30/20 06/30/20 06/30/20 09:30 09:31 09:45 Temperature 98.4 F Pulse Rate 106 H 102 H 138 H Respiratory 18 27 H 25 H Rate Blood Pressure 111/52 173/74 191/83 O2 Sat by Pulse 96 93 Oximetry O2 Sat by Pulse 93 Oximetry [ Anterior Bilateral Throughout] 06/30/20 06/30/20 06/30/20 10:00 10:15 10:30 Temperature Pulse Rate 119 H 141 H 133 H Respiratory 29 H 18 Rate Blood Pressure 128/68 128/68 151/74 O2 Sat by Pulse 99 95 Oximetry O2 Sat by Pulse Oximetry [ Anterior Bilateral Throughout] 06/30/20 06/30/20 06/30/20 10:31 10:45 11:00 Temperature Pulse Rate 130 H 146 H 98 H Respiratory 25 H 19 28 H Rate Blood Pressure 151/74 130/76 118/61 O2 Sat by Pulse 95 96 97 Oximetry O2 Sat by Pulse Oximetry [ Anterior Bilateral Throughout] 06/30/20 06/30/20 06/30/20 11:15 11:27 11:30 Temperature Pulse Rate 104 H 103 H 110 H Respiratory 28 H 24 Rate Blood Pressure 91/57 91/57 101/54 O2 Sat by Pulse 96 95 96 Oximetry O2 Sat by Pulse Oximetry [ Anterior Bilateral Throughout] 06/30/20 06/30/20 06/30/20 11:45 12:00 12:15 Temperature Pulse Rate 106 H 122 H 120 H Respiratory 30 H 30 H 24 Rate Blood Pressure 111/55 121/63 116/51 O2 Sat by Pulse 97 98 97 Oximetry O2 Sat by Pulse Oximetry [ Anterior Bilateral Throughout] 06/30/20 06/30/20 06/30/20 12:30 12:45 13:00 Temperature Pulse Rate 111 H 119 H 118 H Respiratory 30 H 23 30 H Rate Blood Pressure 106/53 111/53 112/54 O2 Sat by Pulse 98 97 98 Oximetry O2 Sat by Pulse Oximetry [ Anterior Bilateral Throughout] 06/30/20 06/30/20 06/30/20 13:15 13:30 13:45 Temperature 98.8 F Pulse Rate 107 H 106 H 116 H Respiratory 30 H 18 Rate Blood Pressure 110/45 107/49 108/54 O2 Sat by Pulse 97 Oximetry O2 Sat by Pulse 98 Oximetry [ Anterior Bilateral Throughout] 06/30/20 16:02 Temperature Pulse Rate 116 H Respiratory Rate Blood Pressure 108/54 O2 Sat by Pulse 97 Oximetry O2 Sat by Pulse Oximetry [ Anterior Bilateral Throughout] - Labs CBC & Chem 7: 06/30/20 13:12 06/30/20 03:50 Labs: Abnormal lab results 06/30/20 06/30/20 06/30/20 Range/Units 03:32 03:50 03:50 WBC 13.1 H (4.5-11.0) K/mm3 Hgb (11.8-15.2) gm/dl Hct (35.5-45.6) % Seg Neuts % (Manual) 95.0 H (40.0-70.0) % Lymphocytes % (Manual) 3.0 L (13.4-35.0) % Seg Neutrophils # Man 12.4 H (1.8-7.7) K/mm3 Lymphocytes # (Manual) 0.4 L (1.2-5.4) K/mm3 ABG Hemoglobin 11.4 L (12.0-17.5) ABG Sodium 130.1 L (136.0-145.0) mmol/L ABG Potassium 5.0 H (3.40-4.50) mmol/L Sodium 135 L (137-145) mmol/L Potassium 5.4 H D (3.6-5.0) mmol/L Chloride 93.6 L (98-107) mmol/L BUN 85 H (9-20) mg/dL Creatinine 4.6 H (0.8-1.3) mg/dL POC Glucose (70-105) mg/dL Calcium 7.1 L (8.4-10.2) mg/dL Phosphorus 9.40 H (2.5-4.5) mg/dL Arterial Blood Ionized Calcium 3.9 L (4.6-5.3) mg/dL Coronavirus (PCR) (Negative) 06/30/20 06/30/20 06/30/20 Range/Units 11:39 13:12 Unknown WBC (4.5-11.0) K/mm3 Hgb 7.8 L D (11.8-15.2) gm/dl Hct 23.2 L D (35.5-45.6) % Seg Neuts % (Manual) (40.0-70.0) % Lymphocytes % (Manual) (13.4-35.0) % Seg Neutrophils # Man (1.8-7.7) K/mm3 Lymphocytes # (Manual) (1.2-5.4) K/mm3 ABG Hemoglobin (12.0-17.5) ABG Sodium (136.0-145.0) mmol/L ABG Potassium (3.40-4.50) mmol/L Sodium (137-145) mmol/L Potassium (3.6-5.0) mmol/L Chloride (98-107) mmol/L BUN (9-20) mg/dL Creatinine (0.8-1.3) mg/dL POC Glucose 111 H (70-105) mg/dL Calcium (8.4-10.2) mg/dL Phosphorus (2.5-4.5) mg/dL Arterial Blood Ionized Calcium (4.6-5.3) mg/dL Coronavirus (PCR) Positive A (Negative) HEART Score - HEART Score Troponin: Troponin T < 0.010 ng/mL (0.00-0.029) 06/17/20 12:33
[2020-06-30] MEDS ORDERED: SODIUM CHLORIDE 0.9% 100 ML IV PRN (16:59)
--- NOTE | 2020-06-30 17:01 | Progress Note ---
Assessment and Plan - Patient Problems (1) GIRISH (acute kidney injury) Current Visit: Yes Status: Acute Plan to address problem: Acute kidney failure 2/2 prerenal azotemia versus acute tubular necrosis, Kidney function worsening and patient developed hyperkalemia, refractory acidosis and worsening azotemia. Hemodialysis initiated on June 22. He modynamic status has improved as patient is now off of vasopressors. Cont HD on MWF schedule (2) Severe sepsis with septic shock Current Visit: Yes Status: Acute Plan to address problem: Continue antibiotics per infectious disease data communications software consultant appropriately adjusted to the degree of renal function. Patient is off of vasopressors. (3) Hyperkalemia Current Visit: Yes Status: Acute Plan to address problem: improving with HD, cont 2g K renal diet (4) Metabolic acidosis Current Visit: Yes Status: Acute Plan to address problem: Acidosis improving with dialysis. (5) Acute respiratory failure with hypoxia Current Visit: Yes Status: Acute Plan to address problem: Continue respiratory management by pulmonary (6) Pneumonia due to COVID-19 virus Current Visit: Yes Status: Acute Plan to address problem: IV Dexamethasone Supplemental oxygen/Respiratory support as needed Proning as tolerated Remdesevir contra-indicated due to Kidney failure Prophylactic anticoagulation Trend inflammatory markers to assess disease progression and prognosis Subjective Date of service: 06/30/20 Principal diagnosis: ARF/Septic Shock/COVID-19 PNA, AF with RVR Objective - Vital Signs Vital signs: Vital Signs - 12hr 06/30/20 06/30/20 06/30/20 05:00 05:15 05:31 Temperature Pulse Rate 135 H 129 H 122 H Respiratory 25 H 21 31 H Rate Blood Pressure 151/73 143/66 114/52 O2 Sat by Pulse 93 94 93 Oximetry O2 Sat by Pulse Oximetry [ Anterior Bilateral Throughout] 06/30/20 06/30/20 06/30/20 05:45 06:01 06:15 Temperature Pulse Rate 123 H 119 H 124 H Respiratory 30 H 17 30 H Rate Blood Pressure 113/57 146/73 111/54 O2 Sat by Pulse 95 95 94 Oximetry O2 Sat by Pulse Oximetry [ Anterior Bilateral Throughout] 06/30/20 06/30/20 06/30/20 06:30 06:45 07:00 Temperature Pulse Rate 121 H 129 H 135 H Respiratory 25 H 26 H 31 H Rate Blood Pressure 108/48 119/56 111/55 O2 Sat by Pulse 95 95 96 Oximetry O2 Sat by Pulse Oximetry [ Anterior Bilateral Throughout] 06/30/20 06/30/20 06/30/20 07:15 07:30 07:45 Temperature Pulse Rate 117 H 112 H 124 H Respiratory 28 H 30 H 21 Rate Blood Pressure 112/51 104/59 110/56 O2 Sat by Pulse 96 97 96 Oximetry O2 Sat by Pulse Oximetry [ Anterior Bilateral Throughout] 06/30/20 06/30/20 06/30/20 07:55 08:00 08:15 Temperature Pulse Rate 121 H 107 H 106 H Respiratory 30 H 30 H Rate Blood Pressure 108/48 113/53 121/53 O2 Sat by Pulse 95 97 97 Oximetry O2 Sat by Pulse Oximetry [ Anterior Bilateral Throughout] 06/30/20 06/30/20 06/30/20 08:30 08:45 09:00 Temperature Pulse Rate 119 H 107 H 112 H Respiratory 27 H 30 H 30 H Rate Blood Pressure 118/58 109/55 103/54 O2 Sat by Pulse 97 97 97 Oximetry O2 Sat by Pulse Oximetry [ Anterior Bilateral Throughout] 06/30/20 06/30/20 06/30/20 09:15 09:30 09:31 Temperature 98.4 F Pulse Rate 110 H 106 H 102 H Respiratory 30 H 18 27 H Rate Blood Pressure 111/52 111/52 173/74 O2 Sat by Pulse 96 96 Oximetry O2 Sat by Pulse 93 Oximetry [ Anterior Bilateral Throughout] 06/30/20 06/30/20 06/30/20 09:45 10:00 10:15 Temperature Pulse Rate 138 H 119 H 141 H Respiratory 25 H 29 H 18 Rate Blood Pressure 191/83 128/68 128/68 O2 Sat by Pulse 93 99 95 Oximetry O2 Sat by Pulse Oximetry [ Anterior Bilateral Throughout] 06/30/20 06/30/20 06/30/20 10:30 10:31 10:45 Temperature Pulse Rate 133 H 130 H 146 H Respiratory 25 H 19 Rate Blood Pressure 151/74 151/74 130/76 O2 Sat by Pulse 95 96 Oximetry O2 Sat by Pulse Oximetry [ Anterior Bilateral Throughout] 06/30/20 06/30/20 06/30/20 11:00 11:15 11:27 Temperature Pulse Rate 98 H 104 H 103 H Respiratory 28 H 28 H Rate Blood Pressure 118/61 91/57 91/57 O2 Sat by Pulse 97 96 95 Oximetry O2 Sat by Pulse Oximetry [ Anterior Bilateral Throughout] 06/30/20 06/30/20 06/30/20 11:30 11:45 12:00 Temperature 98.8 F Pulse Rate 110 H 106 H 122 H Respiratory 24 30 H 30 H Rate Blood Pressure 101/54 111/55 121/63 O2 Sat by Pulse 96 97 98 Oximetry O2 Sat by Pulse Oximetry [ Anterior Bilateral Throughout] 06/30/20 06/30/20 06/30/20 12:15 12:30 12:45 Temperature Pulse Rate 120 H 111 H 119 H Respiratory 24 30 H 23 Rate Blood Pressure 116/51 106/53 111/53 O2 Sat by Pulse 97 98 97 Oximetry O2 Sat by Pulse Oximetry [ Anterior Bilateral Throughout] 06/30/20 06/30/20 06/30/20 13:00 13:15 13:30 Temperature Pulse Rate 118 H 107 H 106 H Respiratory 30 H 30 H Rate Blood Pressure 112/54 110/45 107/49 O2 Sat by Pulse 98 97 Oximetry O2 Sat by Pulse Oximetry [ Anterior Bilateral Throughout] 06/30/20 06/30/20 06/30/20 13:45 16:00 16:02 Temperature 98.8 F 98.7 F Pulse Rate 116 H 116 H Respiratory 18 Rate Blood Pressure 108/54 108/54 O2 Sat by Pulse 97 Oximetry O2 Sat by Pulse 98 Oximetry [ Anterior Bilateral Throughout] - Lab 06/30/20 13:12 06/30/20 03:50 Most recent lab results ABG pH 7.422 (7.320-7.450) 06/30/20 03:32 Calcium 7.1 mg/dL (8.4-10.2) L 06/30/20 03:50 Phosphorus 9.40 mg/dL (2.5-4.5) H 06/30/20 03:50 Magnesium 2.70 mg/dL (1.7-2.3) H 06/18/20 20:33 Urine Creatinine 192.4 mg/dL (0.1-20.0) H 06/18/20 15:00 Urine Sodium 28 mmol/L 06/18/20 15:00 Medications & Allergies - Medications Allergies/Adverse Reactions: Allergies No Known Allergies Allergy (Unverified 06/17/20 14:24) Home Medications: Home Medications Medication Instructions Recorded Confirmed Last Taken Type Losartan/Hydrochlorothiazide 1 each PO QDAY 02/07/21 02/07/21 Unknown History [Losartan-Hctz 100-25 mg Tab] amLODIPine [Norvasc] 5 mg PO DAILY 06/19/20 06/19/20 Unknown History Active Medications: Generic Name Dose Route Start Last Admin Trade Name Freq PRN Reason Stop Dose Admin Acetaminophen 650 mg 06/17/20 14:17 06/19/20 06:42 Acetaminophen 325 Mg Tab PO 650 mg Q4H PRN Administration Pain MILD(1-3)/Fever >100.5/ROBERTS Lipase/Protease/Amylase 1 each 06/19/20 12:15 Lipase 10,500/Protease 25,000/Amylase 43,750 (Units) Dr Kulkarni FEEDTUBE PRN PRN For Clogged Feeding Tube Ascorbic Acid 250 mg 06/17/20 22:00 06/30/20 10:16 Ascorbic Acid 250 Mg Tab PO 250 mg BID CONNOR Administration Cholecalciferol 1,000 unit 06/18/20 10:00 06/30/20 10:16 Cholecalciferol (Vit D3) 1000 Unit (25 Mcg) Tab PO 1,000 unit DAILY CONNOR Administration Docusate Sodium 100 mg 06/23/20 15:00 06/30/20 10:14 Docusate Sodium 100 Mg/10 Ml Oral Liqd FEEDTUBE 100 mg BID CONNOR Administration Famotidine 20 mg 06/20/20 11:00 06/30/20 10:15 Famotidine 20 Mg/2 Ml Inj IV 20 mg DAILY CONNOR Administration Fentanyl 50 mcg 06/18/20 01:02 06/28/20 04:32 Fentanyl 100 Mcg/2 Ml Inj IV 50 mcg Q10MIN PRN Administration ANALGESIA Heparin Sodium (Porcine) 4,500 unit 06/19/20 11:34 06/30/20 09:30 Heparin 10,000 Units/10 Ml Vial 40 unit/kg (4500 unit) 4,500 unit IV Administration Q6H PRN Anti-Xa Assay < 0.1 units/ml Heparin Sodium (Porcine) 5,000 unit 06/22/20 12:53 06/30/20 13:36 Heparin 10,000 Unit/1 Ml Vial IV 5,000 unit PAM PRN Administration hemodialysis Hydrophilic Ointment 1 applic 06/17/20 22:52 Lip Therapy Vaseline TP Q2HR PRN Dry Lips Norepinephrine 4 mg in 250 mls @ 7.5 mls/hr 06/18/20 00:00 06/30/20 14:01 Levophed Drip 4 Mg/Ns 250 Ml IV 2 mcg/min TITR CONNOR 7.5 mls/hr Administration Protocol 2 MCG/MIN Propofol 1,000 mg in 100 mls @ 3.402 mls/hr 06/18/20 01:00 06/30/20 14:02 Diprivan 10 Mg/Ml IV 20 mcg/kg/min TITR CONNOR 13.608 mls/hr Administration Protocol 5 MCG/KG/MIN Fentanyl Citrate 2,000 mcg in 100 mls @ 5.67 mls/hr 06/18/20 02:00 06/30/20 16:39 Fentanyl Drip Premix IV 3 mcg/kg/hr TITR CONNOR 17.01 mls/hr Administration Protocol 1 MCG/KG/HR Vasopressin 20 unit/ Sodium 101 mls @ 9.09 mls/hr 06/18/20 10:00 06/24/20 18:05 Chloride IV 0 units/min TITR CONNOR 0 mls/hr Titration Protocol 0.03 UNITS/MIN Sodium Chloride 500 mls @ 1 mls/hr 06/18/20 09:38 06/19/20 21:37 Nacl 0.9% 500 Ml IV 0 mls/hr DIRECT PRN Infusion ARTERIAL LINE FLUSH Heparin Sodium/Sodium Chloride 25,000 unit in 500 mls @ 30 mls/hr 06/19/20 12:00 06/25/20 19:49 Heparin/ 0.45% Nacl-25,000 Unit/500 Ml IV 0 units/hr TITR CONNOR 0 mls/hr Titration Protocol 1,500 UNITS/HR Sodium Chloride 100 mls @ 999 mls/hr 06/28/20 01:25 Nacl 0.9% IV PAM PRN Hypotension Amiodarone HCl 900 mg/ 500 mls @ 33.333 mls/hr 06/28/20 15:00 06/30/20 02:16 Dextrose IV 0.5 mg/min DIRECT CONNOR 16.667 mls/hr Administration Protocol 1 MG/MIN Insulin Human Regular 0 units 06/18/20 12:00 06/30/20 13:23 Insulin Regular, Human 100 Units/1 Ml SUB-Q Not Given Q6HR CONNOR Protocol Lorazepam 1 mg 06/17/20 17:05 06/17/20 17:10 Lorazepam 2 Mg/Ml Vial IV 1 mg BID PRN Administration Anxiety Metoclopramide HCl 10 mg 06/28/20 13:00 06/30/20 14:03 Metoclopramide 10 Mg/2 Ml Inj IV 10 mg Q8H CONNOR Administration Multi-Ingred Cream/Lotion/Oil/Oint 1 applic 06/17/20 22:52 Mineral Oil/Petrolatum, White Ophth Oint 3.5 Gm OU Q4HR PRN Dry Eye(s) Ondansetron HCl 4 mg 06/17/20 14:17 Ondansetron 4 Mg/2 Ml Inj IV Q8H PRN Nausea And Vomiting Polyethylene Glycol 17 gm 06/23/20 15:00 06/30/20 10:14 Polyethylene Glycol 3350 17 Gm Powder PO 17 gm QDAY CONNOR Administration Quetiapine Fumarate 200 mg 06/28/20 13:00 06/30/20 10:15 Quetiapine 200 Mg Tab PO 200 mg BID CONNOR Administration Simple Syrup 15 ml 06/19/20 12:15 Simple Syrup 15 Ml FEEDTUBE PRN PRN Hypoglycemia Simple Syrup 30 ml 06/19/20 12:15 Simple Syrup 15 Ml FEEDTUBE PRN PRN Hypoglycemia Sodium Bicarbonate 325 mg 06/19/20 12:15 Sodium Bicarbonate 325 Mg Tab FEEDTUBE PRN PRN For Clogged Feeding Tube Sodium Chloride 10 ml 06/17/20 22:00 06/30/20 10:15 Sodium Chloride 0.9% 10 Ml Flush Syringe IV 10 ml BID CONNOR Administration Sodium Chloride 10 ml 06/17/20 14:17 Sodium Chloride 0.9% 10 Ml Flush Syringe IV PRN PRN LINE FLUSH Zinc Sulfate 220 mg 06/17/20 22:00 06/30/20 10:17 Zinc Sulfate 220 Mg Cap PO 220 mg BID CONNOR Administration
[2020-07-01] MEDS: INSULIN REGULAR, HUMAN 100 UNITS/1 ML SUB-Q SCH ×5 (00:02→23:35)
[2020-07-01] MEDS: fentaNYL DRIP Premix 2,000 MCG/100 ML BAG IV SCH ×4 (02:32→19:22)
[2020-07-01 06:33] LABS: Hemoglobin 6.4 gm/dl (11.8-15.2); Mean Corpuscular HGB Conc 33 % (32-34); Mean Corpuscular Volume 89 fl (84-94); Platelet Count 162 K/mm3 (140-440); Red Blood Count 2.16 M/mm3 (3.65-5.03); Red Cell Distribution Width 14.1 % (13.2-15.2)
[2020-07-01 07:04] LABS: Calcium 6.7 mg/dL (8.4-10.2)
[2020-07-01 07:29] LABS: Hematocrit 19.2 % (35.5-45.6)
[2020-07-01] MEDS: METOCLOPRAMIDE 10 MG/2 ML INJ IV SCH ×3 (08:10→22:25)
[2020-07-01] MEDS ORDERED: SODIUM CHLORIDE 0.9% 500 ML 500 ML IV SCH (10:00)
[2020-07-01] MEDS: FAMOTIDINE 20 MG/2 ML INJ IV SCH (11:06)
[2020-07-01] MEDS: POLYETHYLENE GLYCOL 3350 17 GM POWDER PO SCH (11:06)
[2020-07-01] MEDS: QUEtiapine 200 MG TAB PO SCH ×2 (11:07→22:25)
[2020-07-01] MEDS: DOCUSATE SODIUM 100 MG/10 ML ORAL LIQD FEEDTUBE SCH ×2 (11:07→22:25)
[2020-07-01] MEDS: CHOLECALCIFEROL (VIT D3) 1000 UNIT (25 mcg) TAB PO SCH (11:07)
[2020-07-01] MEDS: ZINC SULFATE 220 MG CAP PO SCH ×2 (11:07→22:25)
[2020-07-01] MEDS: ASCORBIC ACID 250 MG TAB PO SCH ×2 (11:07→22:25)
--- NOTE | 2020-07-01 13:07 | Progress Note ---
Assessment and Plan tte reviewed - TDS, EF 55-60%. tele reviewed - pt converted to NSR this morning. Cont IV amio for additional 24Hr and consider transition to PO amio if NSR is maintained. Severe anemia noted. Heparin gtt held. PRBC tx ordered per primary. Further eval/management per primary. Pt is critically ill. Overall guarded prognosis. The patient has been seen in conjunction with Dr. Adarsh Santos who agrees with the assessment and plan of care. - Patient Problems (1) Acute respiratory failure with hypoxia Current Visit: Yes Status: Acute (2) Pneumonia due to COVID-19 virus Current Visit: Yes Status: Acute (3) Sepsis Current Visit: Yes Status: Acute Qualifiers: Severe sepsis acute organ dysfunction type: acute respiratory failure Severe sepsis shock status: with septic shock (4) Atrial fibrillation with rapid ventricular response Current Visit: Yes Status: Acute (5) Acute renal failure Current Visit: Yes Status: Acute (6) Elevated LFTs Current Visit: Yes Status: Acute (7) Anemia Current Visit: Yes Status: Acute Subjective Date of service: 07/01/20 Principal diagnosis: ARF/Septic Shock/COVID-19 PNA, AF with RVR Interval history: pt remains intubated, sedated. intermittently requiring vasopressor support. on amio gtt. tele reviewed -pt converted to NSR this morning. Objective Last Vital Signs Temp 99.0 F 07/01/20 08:00 Pulse 85 07/01/20 11:45 Resp 25 H 07/01/20 11:45 BP 119/47 07/01/20 11:45 Pulse Ox 95 07/01/20 11:45 - Physical Examination General: Other (intubated, lethargic) Neck: Positive: neck supple Cardiac: Positive: Reg Rate and Rhythm, S1/S2 Lungs: Positive: Decreased Breath Sounds, Oxygen, Ventilated Respirations Neuro: Positive: Other (intubated, lethargic) Abdomen: Positive: Soft Skin: Negative: Rash, Wound Extremities: Present: upper extr. pulses, lower extr. pulses - Labs and Meds Lipids 07/01/20 Range/Units 06:00 Triglycerides 250 H (2-149) mg/dL CBC 06/30/20 07/01/20 Range/Units 13:12 06:00 WBC 16.7 H (4.5-11.0) K/mm3 RBC 2.16 L (3.65-5.03) M/mm3 Hgb 7.8 L D 6.4 L (11.8-15.2) gm/dl Hct 23.2 L D 19.2 L* (35.5-45.6) % Plt Count 162 (140-440) K/mm3 Comprehensive Metabolic Panel 07/01/20 Range/Units 06:00 Sodium 136 L (137-145) mmol/L Potassium 4.8 (3.6-5.0) mmol/L Chloride 95.8 L (98-107) mmol/L Carbon Dioxide 25 (22-30) mmol/L BUN 72 H (9-20) mg/dL Creatinine 4.3 H (0.8-1.3) mg/dL Glucose 83 (75-100) mg/dL Calcium 6.7 L (8.4-10.2) mg/dL - Imaging and Cardiology EKG: report reviewed, image reviewed - Telemetry EKG Rhythm: Sinus Rhythm - EKG Sinus rhythms and dysrhythmias: sinus tachycardia - Allied health notes Allied health notes reviewed: nursing
--- NOTE | 2020-07-01 13:32 | Progress Note ---
Assessment and Plan - Patient Problems (1) GIRISH (acute kidney injury) Current Visit: Yes Status: Acute Plan to address problem: Acute kidney failure 2/2 prerenal azotemia versus acute tubular necrosis, Kidney function worsening and patient developed hyperkalemia, refractory acidosis and worsening azotemia. Hemodialysis initiated on June 22. He modynamic status has improved. Cont HD on MWF schedule with vasopressor support as needed to maintain MAP > 65mmHg (2) Severe sepsis with septic shock Current Visit: Yes Status: Acute Plan to address problem: Continue antibiotics per infectious disease product consultant appropriately adjusted to the degree of renal function. Patient is off of vasopressors. (3) Hyperkalemia Current Visit: Yes Status: Acute Plan to address problem: improving with HD, cont 2g K renal diet (4) Metabolic acidosis Current Visit: Yes Status: Acute Plan to address problem: Acidosis improving with dialysis. (5) Acute respiratory failure with hypoxia Current Visit: Yes Status: Acute Plan to address problem: Continue respiratory management by pulmonary (6) Pneumonia due to COVID-19 virus Current Visit: Yes Status: Acute Plan to address problem: IV Dexamethasone Supplemental oxygen/Respiratory support as needed Proning as tolerated Remdesevir contra-indicated due to Kidney failure Prophylactic anticoagulation Trend inflammatory markers to assess disease progression and prognosis Subjective Date of service: 07/01/20 Principal diagnosis: ARF/Septic Shock/COVID-19 PNA, AF with RVR Interval history: Patient was not examined today due to the COVID-19 status to limit exposure of the consulting tagman and also for PPE preservation. I reviewed multidisciplinary notes and discussed with staff and physicians as needed. Patient is sedated on propofol and fentanyl. He is on anticoagulation with intravenous heparin. Patient is receiving vasopressor support during HD Objective - Exam Narrative Exam: exam deferred d/t PPE preservation - Vital Signs Vital signs: Vital Signs - 12hr 07/01/20 07/01/20 07/01/20 01:45 02:00 02:15 Temperature Pulse Rate 76 74 76 Pulse Rate [ From Monitor] Respiratory 25 H 25 H 25 H Rate Blood Pressure 131/52 131/52 129/53 O2 Sat by Pulse 98 99 97 Oximetry 07/01/20 07/01/20 07/01/20 02:30 02:45 03:00 Temperature Pulse Rate 77 76 77 Pulse Rate [ From Monitor] Respiratory 25 H 25 H 25 H Rate Blood Pressure 127/52 125/50 127/54 O2 Sat by Pulse 96 98 97 Oximetry 07/01/20 07/01/20 07/01/20 03:15 03:17 03:30 Temperature Pulse Rate 77 77 76 Pulse Rate [ From Monitor] Respiratory 25 H 25 H Rate Blood Pressure 134/54 134/54 134/52 O2 Sat by Pulse 97 97 98 Oximetry 07/01/20 07/01/20 07/01/20 03:45 04:00 04:15 Temperature Pulse Rate 78 77 77 Pulse Rate [ From Monitor] Respiratory 25 H 25 H 25 H Rate Blood Pressure 129/51 130/51 129/52 O2 Sat by Pulse 96 98 97 Oximetry 07/01/20 07/01/20 07/01/20 04:30 04:45 05:00 Temperature Pulse Rate 76 76 76 Pulse Rate [ From Monitor] Respiratory 25 H 25 H 25 H Rate Blood Pressure 130/51 133/54 126/51 O2 Sat by Pulse 97 97 96 Oximetry 07/01/20 07/01/20 07/01/20 05:15 05:30 05:45 Temperature Pulse Rate 77 76 75 Pulse Rate [ From Monitor] Respiratory 25 H 25 H 25 H Rate Blood Pressure 130/54 121/55 134/55 O2 Sat by Pulse 96 96 96 Oximetry 07/01/20 07/01/20 07/01/20 06:00 06:15 06:30 Temperature Pulse Rate 77 72 78 Pulse Rate [ From Monitor] Respiratory 25 H 25 H 25 H Rate Blood Pressure 137/56 182/63 173/61 O2 Sat by Pulse 97 93 100 Oximetry 07/01/20 07/01/20 07/01/20 06:45 07:00 07:15 Temperature Pulse Rate 79 85 82 Pulse Rate [ From Monitor] Respiratory 26 H 19 18 Rate Blood Pressure 189/55 197/62 168/58 O2 Sat by Pulse 87 87 87 Oximetry 07/01/20 07/01/20 07/01/20 07:30 07:45 08:00 Temperature 99.0 F Pulse Rate 85 86 Pulse Rate [ 86 From Monitor] Respiratory 14 25 H Rate Blood Pressure 187/61 176/58 165/51 O2 Sat by Pulse 88 89 86 Oximetry 07/01/20 07/01/20 07/01/20 08:15 08:30 08:45 Temperature Pulse Rate 85 89 89 Pulse Rate [ From Monitor] Respiratory 17 25 H 25 H Rate Blood Pressure 160/54 137/52 138/49 O2 Sat by Pulse 90 91 92 Oximetry 07/01/20 07/01/20 07/01/20 09:00 09:15 09:30 Temperature Pulse Rate 88 88 87 Pulse Rate [ From Monitor] Respiratory 25 H 25 H 25 H Rate Blood Pressure 129/46 129/50 129/50 O2 Sat by Pulse 94 95 95 Oximetry 07/01/20 07/01/20 07/01/20 09:45 10:01 10:15 Temperature Pulse Rate 87 96 H 86 Pulse Rate [ From Monitor] Respiratory 25 H 13 25 H Rate Blood Pressure 139/48 185/58 136/50 O2 Sat by Pulse 96 89 90 Oximetry 07/01/20 07/01/20 07/01/20 10:30 10:45 11:00 Temperature Pulse Rate 86 86 85 Pulse Rate [ From Monitor] Respiratory 25 H 25 H 25 H Rate Blood Pressure 133/48 124/49 122/44 O2 Sat by Pulse 93 94 94 Oximetry 07/01/20 07/01/20 07/01/20 11:15 11:30 11:45 Temperature Pulse Rate 84 86 85 Pulse Rate [ From Monitor] Respiratory 25 H 25 H 25 H Rate Blood Pressure 133/52 130/46 119/47 O2 Sat by Pulse 95 94 95 Oximetry - Lab 07/01/20 06:00 07/01/20 06:00 Most recent lab results ABG pH 7.461 (7.320-7.450) H 07/01/20 03:19 Calcium 6.7 mg/dL (8.4-10.2) L 07/01/20 06:00 Phosphorus 9.40 mg/dL (2.5-4.5) H 06/30/20 03:50 Magnesium 2.70 mg/dL (1.7-2.3) H 06/18/20 20:33 Urine Creatinine 192.4 mg/dL (0.1-20.0) H 06/18/20 15:00 Urine Sodium 28 mmol/L 06/18/20 15:00 Medications & Allergies - Medications Allergies/Adverse Reactions: Allergies No Known Allergies Allergy (Unverified 06/17/20 14:24) Home Medications: Home Medications Medication Instructions Recorded Confirmed Last Taken Type Losartan/Hydrochlorothiazide 1 each PO QDAY 06/19/20 06/19/20 Unknown History [Losartan-Hctz 100-25 mg Tab] amLODIPine [Norvasc] 5 mg PO DAILY 06/19/20 06/19/20 Unknown History Active Medications: Generic Name Dose Route Start Last Admin Trade Name Freq PRN Reason Stop Dose Admin Acetaminophen 650 mg 06/17/20 14:17 06/19/20 06:42 Acetaminophen 325 Mg Tab PO 650 mg Q4H PRN Administration Pain MILD(1-3)/Fever >100.5/ROBERTS Lipase/Protease/Amylase 1 each 06/19/20 12:15 Lipase 10,500/Protease 25,000/Amylase 43,750 (Units) Dr Kulkarni FEEDTUBE PRN PRN For Clogged Feeding Tube Ascorbic Acid 250 mg 06/17/20 22:00 07/01/20 11:07 Ascorbic Acid 250 Mg Tab PO 250 mg BID CONNOR Administration Cholecalciferol 1,000 unit 06/18/20 10:00 07/01/20 11:07 Cholecalciferol (Vit D3) 1000 Unit (25 Mcg) Tab PO 1,000 unit DAILY CONNOR Administration Docusate Sodium 100 mg 06/23/20 15:00 07/01/20 11:07 Docusate Sodium 100 Mg/10 Ml Oral Liqd FEEDTUBE 100 mg BID CONNOR Administration Famotidine 20 mg 06/20/20 11:00 07/01/20 11:06 Famotidine 20 Mg/2 Ml Inj IV 20 mg DAILY CONNOR Administration Fentanyl 50 mcg 06/18/20 01:02 06/28/20 04:32 Fentanyl 100 Mcg/2 Ml Inj IV 50 mcg Q10MIN PRN Administration ANALGESIA Heparin Sodium (Porcine) 4,500 unit 06/19/20 11:34 06/30/20 09:30 Heparin 10,000 Units/10 Ml Vial 40 unit/kg (4500 unit) 4,500 unit IV Administration Q6H PRN Anti-Xa Assay < 0.1 units/ml Heparin Sodium (Porcine) 5,000 unit 06/22/20 12:53 06/30/20 13:36 Heparin 10,000 Unit/1 Ml Vial IV 5,000 unit PAM PRN Administration hemodialysis Hydrophilic Ointment 1 applic 06/17/20 22:52 Lip Therapy Vaseline TP Q2HR PRN Dry Lips Norepinephrine 4 mg in 250 mls @ 7.5 mls/hr 06/18/20 00:00 07/01/20 08:05 Levophed Drip 4 Mg/Ns 250 Ml IV 0 mcg/min TITR CONNOR 0 mls/hr Titration Protocol 2 MCG/MIN Propofol 1,000 mg in 100 mls @ 3.402 mls/hr 06/18/20 01:00 07/01/20 11:07 Diprivan 10 Mg/Ml IV 30 mcg/kg/min TITR CONNOR 20.412 mls/hr Administration Protocol 5 MCG/KG/MIN Fentanyl Citrate 2,000 mcg in 100 mls @ 5.67 mls/hr 06/18/20 02:00 07/01/20 13:30 Fentanyl Drip Premix IV 3 mcg/kg/hr TITR CONNOR 17.01 mls/hr Administration Protocol 1 MCG/KG/HR Vasopressin 20 unit/ Sodium 101 mls @ 9.09 mls/hr 06/18/20 10:00 06/24/20 18:05 Chloride IV 0 units/min TITR CONNOR 0 mls/hr Titration Protocol 0.03 UNITS/MIN Sodium Chloride 500 mls @ 1 mls/hr 06/18/20 09:38 06/19/20 21:37 Nacl 0.9% 500 Ml IV 0 mls/hr DIRECT PRN Infusion ARTERIAL LINE FLUSH Heparin Sodium/Sodium Chloride 25,000 unit in 500 mls @ 30 mls/hr 06/19/20 12:00 06/25/20 19:49 Heparin/ 0.45% Nacl-25,000 Unit/500 Ml IV 0 units/hr TITR CONNOR 0 mls/hr Titration Protocol 1,500 UNITS/HR Sodium Chloride 100 mls @ 999 mls/hr 06/28/20 01:25 Nacl 0.9% IV PAM PRN Hypotension Amiodarone HCl 900 mg/ 500 mls @ 33.333 mls/hr 06/28/20 15:00 07/01/20 07:00 Dextrose IV 0.5 mg/min DIRECT CONNOR 16.667 mls/hr Infusion Protocol 1 MG/MIN Sodium Chloride 100 mls @ 999 mls/hr 06/30/20 16:59 Nacl 0.9% IV PAM PRN Hypotension Sodium Chloride 500 mls @ 0 mls/hr 07/01/20 10:00 Nacl 0.9% 500 Ml IV 07/01/20 20:00 ONCE CONNOR As Directed Insulin Human Regular 0 units 06/18/20 12:00 07/01/20 11:54 Insulin Regular, Human 100 Units/1 Ml SUB-Q Not Given Q6HR [facility] Protocol Lorazepam 1 mg 06/17/20 17:05 06/17/20 17:10 Lorazepam 2 Mg/Ml Vial IV 1 mg BID PRN Administration Anxiety Metoclopramide HCl 10 mg 06/28/20 13:00 07/01/20 12:57 Metoclopramide 10 Mg/2 Ml Inj IV 10 mg Q8H CONNOR Administration Multi-Ingred Cream/Lotion/Oil/Oint 1 applic 06/17/20 22:52 Mineral Oil/Petrolatum, White Ophth Oint 3.5 Gm OU Q4HR PRN Dry Eye(s) Ondansetron HCl 4 mg 06/17/20 14:17 Ondansetron 4 Mg/2 Ml Inj IV Q8H PRN Nausea And Vomiting Polyethylene Glycol 17 gm 06/23/20 15:00 07/01/20 11:06 Polyethylene Glycol 3350 17 Gm Powder PO 17 gm QDAY CONNOR Administration Quetiapine Fumarate 200 mg 06/28/20 13:00 07/01/20 11:07 Quetiapine 200 Mg Tab PO 200 mg BID CONNOR Administration Simple Syrup 15 ml 06/19/20 12:15 Simple Syrup 15 Ml FEEDTUBE PRN PRN Hypoglycemia Simple Syrup 30 ml 06/19/20 12:15 Simple Syrup 15 Ml FEEDTUBE PRN PRN Hypoglycemia Sodium Bicarbonate 325 mg 06/19/20 12:15 Sodium Bicarbonate 325 Mg Tab FEEDTUBE PRN PRN For Clogged Feeding Tube Sodium Chloride 10 ml 06/17/20 22:00 07/01/20 11:07 Sodium Chloride 0.9% 10 Ml Flush Syringe IV 10 ml BID CONNOR Administration Sodium Chloride 10 ml 06/17/20 14:17 Sodium Chloride 0.9% 10 Ml Flush Syringe IV PRN PRN LINE FLUSH Zinc Sulfate 220 mg 06/17/20 22:00 07/01/20 11:07 Zinc Sulfate 220 Mg Cap PO 220 mg BID CONNOR Administration
--- NOTE | 2020-07-01 15:02 | Progress Note ---
Assessment and Plan Acute hypoxemic respiratory failure due to COVID-19 Severe COVID infection Severe Sepsis with shock Bilateral pneumonia Acute kidney injury (GIRISH) with acute tubular necrosis (ATN) Elevated liver enzymes Obesity - received 1 unit PRBC's - reduced set rate to 20/min - reduced peep 8 - increased FiO2 from 30-40% - wean vasopressors for target MAP > 65 mmHg (on Levophed) - HD/UF again today ongoing - continue daily SAT's & SBT's as tolerated - continue care as below otherwise; - continue tube feeds and advance to goal rate as tolerated - continue HD/UF per nephrology team for toxin and volume clearance - continue bowel regimen - rate control per cardiology team for afib RVR - Continue to wean supplemental oxygen for O2 sats >92% - Monitor blood pressure closely while optimizing sedation,wean vasopressor support for MAP > 65 mmHg - Critical care prone positioning - Agitation management, keep RASS -1 to -12 now off proning - VAP bundle addressed, aspiration precautions HOB >40 - continue lung protective strategies, permissive hypercapnic acceptable. - continue bronchodilators with pulmonary hygiene per RT - wean per pulmonary driven protocols otherwise - accuchecks with glycemic control per SSI (While critically ill target blood glucose of 140-180 mg/dL; avoid hypoglycemia) - sedation prn for target RASS -1 to -2 - continue enteral nutritional support at goal rate as tolerated - s/p antibiotics per ID recommendations - Monitor liver function test ,avoid hepatotoxic agents - azotemia per nephrology rec's - Avoid nephrotoxins, renally dose all medications, conservative fluid management - continue to avoid benzodiazepines, reduce the possibility of delirium, - prn analgesia per CPOT score - Maintenance of sleep-wake cycle, avoid delirium - Stress ulcer prophylaxis, Famotidine - PT/OT/ROM exercises - Mobility protocols for pressure ulcer prevention - CXR, ABG in am - CBC, CMP in am - Supportive transfusions to keep HgB >7g/dL - Monitor hemodynamics closely - continue other care per attending / other consultants COVID SPECIFIC INTERVENTIONS - continue steroids: Dexamethasone - continue with Remdesivir - monitor inflammatory markers - ferritin, D-dimer, CRP, LDH per facility protocol - continue anticoagulation per System Protocol based on d-dimer - continue contact and airborne isolation CONDITION: CRITICAL PROGNOSIS: GUARDED CODE STATUS: FULL CODE The high probability of a clinically significant, sudden or life-threatening deterioration of the [respiratory, cardiovascular, hematologic & neurologic] system(s) required my full and direct attention, intervention and personal management. The aggregate critical care time was [34] minutes without overlap. Time includes spent on; [x] Data Review and interpretation [x] Patient assessment and monitoring of vital signs [x] Documentation [x] Medication orders and management He was evaluated in the context of the global COVID-19 pandemic, which necessitated consideration that the patient might be at risk for infection with the virus that causes COVID-19. Institutional protocols and algorithms that pertain to the evaluation of patients at risk for COVID-19 are in a state of rapid change based on information released by regulatory bodies including the CDC and federal and state organizations. These policies and algorithms were followed during the patient's care in the ICU Please note that these policies, procedures and recommendations changed on a rapid basis. Subjective Date of service: 07/01/20 Principal diagnosis: ARF/Septic Shock/COVID-19 PNA, AF with RVR Interval history: Patient is seen today for: Ac hypoxemic respiratory failure; COVID-19; Severe Sepsis with shock; Zackery. pneumonia; GIRISH; Elevated liver enzymes; Obesity Seen and examined at bedside; 24hour events reviewed; nursing and respiratory care staff consulted; no adverse overnight events reported to me; resting in bed; remains on MVS; FiO2 down to 30% with peep at 8 cm H2O; HD/UF ongoing; remains on Levophed; tolerating tube feeds Objective Vital Signs - 12hr 07/01/20 07/01/20 07/01/20 03:15 03:17 03:30 Temperature Pulse Rate 77 77 76 Pulse Rate [ From Monitor] Respiratory 25 H 25 H Rate Blood Pressure 134/54 134/54 134/52 O2 Sat by Pulse 97 97 98 Oximetry O2 Sat by Pulse Oximetry [ Anterior Bilateral Throughout] 07/01/20 07/01/20 07/01/20 03:45 04:00 04:15 Temperature Pulse Rate 78 77 77 Pulse Rate [ From Monitor] Respiratory 25 H 25 H 25 H Rate Blood Pressure 129/51 130/51 129/52 O2 Sat by Pulse 96 98 97 Oximetry O2 Sat by Pulse Oximetry [ Anterior Bilateral Throughout] 07/01/20 07/01/20 07/01/20 04:30 04:45 05:00 Temperature Pulse Rate 76 76 76 Pulse Rate [ From Monitor] Respiratory 25 H 25 H 25 H Rate Blood Pressure 130/51 133/54 126/51 O2 Sat by Pulse 97 97 96 Oximetry O2 Sat by Pulse Oximetry [ Anterior Bilateral Throughout] 07/01/20 07/01/20 07/01/20 05:15 05:30 05:45 Temperature Pulse Rate 77 76 75 Pulse Rate [ From Monitor] Respiratory 25 H 25 H 25 H Rate Blood Pressure 130/54 121/55 134/55 O2 Sat by Pulse 96 96 96 Oximetry O2 Sat by Pulse Oximetry [ Anterior Bilateral Throughout] 07/01/20 07/01/20 07/01/20 06:00 06:15 06:30 Temperature Pulse Rate 77 72 78 Pulse Rate [ From Monitor] Respiratory 25 H 25 H 25 H Rate Blood Pressure 137/56 182/63 173/61 O2 Sat by Pulse 97 93 100 Oximetry O2 Sat by Pulse Oximetry [ Anterior Bilateral Throughout] 07/01/20 07/01/20 07/01/20 06:45 07:00 07:15 Temperature Pulse Rate 79 85 82 Pulse Rate [ From Monitor] Respiratory 26 H 19 18 Rate Blood Pressure 189/55 197/62 168/58 O2 Sat by Pulse 87 87 87 Oximetry O2 Sat by Pulse Oximetry [ Anterior Bilateral Throughout] 07/01/20 07/01/20 07/01/20 07:30 07:45 08:00 Temperature 99.0 F Pulse Rate 85 89 Pulse Rate [ 86 From Monitor] Respiratory 14 25 H Rate Blood Pressure 187/61 176/58 165/51 O2 Sat by Pulse 88 89 86 Oximetry O2 Sat by Pulse Oximetry [ Anterior Bilateral Throughout] 07/01/20 07/01/20 07/01/20 08:15 08:30 08:45 Temperature Pulse Rate 85 89 89 Pulse Rate [ From Monitor] Respiratory 17 25 H 25 H Rate Blood Pressure 160/54 137/52 138/49 O2 Sat by Pulse 90 91 92 Oximetry O2 Sat by Pulse Oximetry [ Anterior Bilateral Throughout] 07/01/20 07/01/20 07/01/20 09:00 09:15 09:30 Temperature Pulse Rate 88 88 87 Pulse Rate [ From Monitor] Respiratory 25 H 25 H 25 H Rate Blood Pressure 129/46 129/50 129/50 O2 Sat by Pulse 94 95 95 Oximetry O2 Sat by Pulse Oximetry [ Anterior Bilateral Throughout] 07/01/20 07/01/20 07/01/20 09:45 10:01 10:15 Temperature Pulse Rate 87 96 H 86 Pulse Rate [ From Monitor] Respiratory 25 H 13 25 H Rate Blood Pressure 139/48 185/58 136/50 O2 Sat by Pulse 96 89 90 Oximetry O2 Sat by Pulse Oximetry [ Anterior Bilateral Throughout] 07/01/20 07/01/20 07/01/20 10:30 10:45 11:00 Temperature Pulse Rate 86 86 85 Pulse Rate [ From Monitor] Respiratory 25 H 25 H 25 H Rate Blood Pressure 133/48 124/49 122/44 O2 Sat by Pulse 93 94 94 Oximetry O2 Sat by Pulse Oximetry [ Anterior Bilateral Throughout] 07/01/20 07/01/20 07/01/20 11:15 11:30 11:45 Temperature Pulse Rate 84 86 85 Pulse Rate [ From Monitor] Respiratory 25 H 25 H 25 H Rate Blood Pressure 133/52 130/46 119/47 O2 Sat by Pulse 95 94 95 Oximetry O2 Sat by Pulse Oximetry [ Anterior Bilateral Throughout] 07/01/20 07/01/20 07/01/20 12:00 12:15 12:30 Temperature Pulse Rate 85 85 80 Pulse Rate [ 85 From Monitor] Respiratory 25 H 26 H 25 H Rate Blood Pressure 128/46 128/47 124/46 O2 Sat by Pulse 95 94 94 Oximetry O2 Sat by Pulse Oximetry [ Anterior Bilateral Throughout] 07/01/20 07/01/20 07/01/20 12:45 13:00 13:15 Temperature 99.0 F Pulse Rate 82 83 84 Pulse Rate [ From Monitor] Respiratory 25 H 25 H 25 H Rate Blood Pressure 122/45 126/46 128/46 O2 Sat by Pulse 95 96 95 Oximetry O2 Sat by Pulse 100 Oximetry [ Anterior Bilateral Throughout] 07/01/20 07/01/20 07/01/20 13:30 13:45 13:57 Temperature 99.0 F Pulse Rate 81 76 73 Pulse Rate [ From Monitor] Respiratory 25 H 25 H 22 Rate Blood Pressure 122/46 123/48 136/52 O2 Sat by Pulse 97 96 98 Oximetry O2 Sat by Pulse Oximetry [ Anterior Bilateral Throughout] 07/01/20 07/01/20 07/01/20 14:00 14:12 14:15 Temperature 98.7 F Pulse Rate 75 86 86 Pulse Rate [ From Monitor] Respiratory 23 26 H Rate Blood Pressure 136/52 124/59 124/59 O2 Sat by Pulse 97 95 Oximetry O2 Sat by Pulse Oximetry [ Anterior Bilateral Throughout] 07/01/20 07/01/20 14:32 14:33 Temperature 98.1 F Pulse Rate 80 81 Pulse Rate [ From Monitor] Respiratory 22 Rate Blood Pressure 115/47 115/47 O2 Sat by Pulse 96 Oximetry O2 Sat by Pulse Oximetry [ Anterior Bilateral Throughout] Constitutional: appears uncomfortable, other (morbidly obese, atraumatic, normocephalic, mild resp distress, orally intuabted) Eyes: non-icteric ENT: oropharynx moist, other (ETT 24 cm TROY) Neck: supple, no lymphadenopathy, other (Large , short neck) Effort: mildly labored Ascultation: Bilateral: diminished breath sounds, rhonchi (scant) Percussion: Bilateral: not dull Cardiovascular: irregular rhythm, other (S1,S2) Gastrointestinal: normoactive bowel sounds, non-distended (protuberant), other (OG Tube) Integumentary: rash, other (Femoral CVC, Newell catheter) Extremities: no edema, pink and warm, pulses normal, no ischemia or petechiae, edema (trace to 1+) Neurologic: non-focal exam (grossly), pupils equal and round, other (unable to assess, sedated) Psychiatric: other (unable to assess, sedated) CBC and BMP: 07/01/20 06:00 07/01/20 06:00 ABG, PT/INR, D-dimer: ABG ABG pH 7.461 (7.320-7.450) H 07/01/20 03:19 POC ABG pCO2 36.8 mmHg (32.0-48.0) 07/01/20 03:19 POC ABG pO2 77.2 mmHg (83-108) L 07/01/20 03:19 POC ABG HCO3 25.6 07/01/20 03:19 PT/INR, D-dimer PT 17.4 Sec. (12.2-14.9) H 06/26/20 05:47 INR 1.44 (0.87-1.13) H 06/26/20 05:47 D-Dimer 939.89 ng/mlDDU (0-234) H 06/17/20 14:48 Abnormal lab findings: Abnormal Labs 06/17/20 06/17/20 06/17/20 12:33 12:33 12:33 WBC 19.5 H RBC 5.18 H Hgb 15.5 H Hct RDW Lymph % (Auto) 3.8 L Lymph # (Auto) 0.7 L [place] # (Auto) Seg Neuts % (Manual) 99.0 H Lymphocytes % (Manual) 1.0 L Nucleated RBC % Seg Neutrophils # 18.2 H Seg Neutrophils # Man 19.3 H Lymphocytes # (Manual) 0.2 L Monocytes # (Manual) PT 16.5 H INR 1.33 H APTT D-Dimer 1025.04 H Heparin Anti-Xa Level ABG pH POC ABG pCO2 POC ABG pO2 ABG Hemoglobin ABG Oxyhemoglobin ABG Sodium ABG Potassium ABG Chloride ABG Glucose Carboxyhemoglobin Sodium 130 L Potassium 3.4 L Chloride 95.0 L Carbon Dioxide BUN 21 H Creatinine Glucose 137 H POC Glucose Lactic Acid Calcium 7.9 L Phosphorus Magnesium Ferritin AST 84 H ALT 67 H Lactate Dehydrogenase 437 H Total Creatine Kinase 310 H C-Reactive Protein 27.90 H Total Protein Albumin 2.9 L Triglycerides Arterial Blood Glucose Arterial Blood Ionized Calcium Urine Creatinine Urine Chloride Vancomycin Trough Coronavirus (PCR) Crossmatch 06/17/20 06/17/20 06/17/20 12:33 12:33 14:48 WBC RBC Hgb Hct RDW Lymph % (Auto) Lymph # (Auto) [place] # (Auto) Seg Neuts % (Manual) Lymphocytes % (Manual) Nucleated RBC % Seg Neutrophils # Seg Neutrophils # Man Lymphocytes # (Manual) Monocytes # (Manual) PT INR APTT D-Dimer Heparin Anti-Xa Level ABG pH POC ABG pCO2 POC ABG pO2 ABG Hemoglobin ABG Oxyhemoglobin ABG Sodium ABG Potassium ABG Chloride ABG Glucose Carboxyhemoglobin Sodium Potassium Chloride Carbon Dioxide BUN Creatinine Glucose POC Glucose Lactic Acid 2.50 H* 2.20 H* Calcium Phosphorus Magnesium Ferritin 2297.0 H AST ALT Lactate Dehydrogenase Total Creatine Kinase C-Reactive Protein Total Protein Albumin Triglycerides Arterial Blood Glucose Arterial Blood Ionized Calcium Urine Creatinine Urine Chloride Vancomycin Trough Coronavirus (PCR) Crossmatch 06/17/20 06/17/20 06/17/20 14:48 14:48 14:48 WBC RBC Hgb Hct RDW Lymph % (Auto) Lymph # (Auto) [place] # (Auto) Seg Neuts % (Manual) Lymphocytes % (Manual) Nucleated RBC % Seg Neutrophils # Seg Neutrophils # Man Lymphocytes # (Manual) Monocytes # (Manual) PT INR APTT D-Dimer 939.89 H Heparin Anti-Xa Level ABG pH POC ABG pCO2 POC ABG pO2 ABG Hemoglobin ABG Oxyhemoglobin ABG Sodium ABG Potassium ABG Chloride ABG Glucose Carboxyhemoglobin Sodium Potassium Chloride Carbon Dioxide BUN Creatinine Glucose 141 H POC Glucose Lactic Acid Calcium Phosphorus Magnesium Ferritin > 2000.0 H AST ALT Lactate Dehydrogenase 503 H Total Creatine Kinase C-Reactive Protein 24.70 H Total Protein Albumin Triglycerides Arterial Blood Glucose Arterial Blood Ionized Calcium Urine Creatinine Urine Chloride Vancomycin Trough Coronavirus (PCR) Crossmatch 06/17/20 06/17/20 06/17/20 16:54 19:39 23:43 WBC RBC Hgb Hct RDW Lymph % (Auto) Lymph # (Auto) [place] # (Auto) Seg Neuts % (Manual) Lymphocytes % (Manual) Nucleated RBC % Seg Neutrophils # Seg Neutrophils # Man Lymphocytes # (Manual) Monocytes # (Manual) PT INR APTT D-Dimer Heparin Anti-Xa Level ABG pH 7.571 H POC ABG pCO2 24.3 L POC ABG pO2 41.6 L ABG Hemoglobin ABG Oxyhemoglobin 84.0 L ABG Sodium 131.0 L ABG Potassium ABG Chloride ABG Glucose 163 H Carboxyhemoglobin Sodium Potassium Chloride Carbon Dioxide BUN Creatinine Glucose POC Glucose 185 H Lactic Acid 2.10 H* Calcium Phosphorus Magnesium Ferritin AST ALT Lactate Dehydrogenase Total Creatine Kinase C-Reactive Protein Total Protein Albumin Triglycerides Arterial Blood Glucose 163 H Arterial Blood Ionized Calcium 4.4 L Urine Creatinine Urine Chloride Vancomycin Trough Coronavirus (PCR) Crossmatch 06/18/20 06/18/20 06/18/20 00:17 00:23 03:55 WBC RBC Hgb Hct RDW Lymph % (Auto) Lymph # (Auto) [place] # (Auto) Seg Neuts % (Manual) Lymphocytes % (Manual) Nucleated RBC % Seg Neutrophils # Seg Neutrophils # Man Lymphocytes # (Manual) Monocytes # (Manual) PT INR APTT D-Dimer Heparin Anti-Xa Level ABG pH POC ABG pCO2 POC ABG pO2 56.5 L 48.3 L ABG Hemoglobin ABG Oxyhemoglobin 86.3 L 81.7 L ABG Sodium 132.9 L 131.0 L ABG Potassium ABG Chloride ABG Glucose 189 H 161 H Carboxyhemoglobin 0.4 L Sodium Potassium Chloride Carbon Dioxide BUN Creatinine Glucose POC Glucose Lactic Acid 3.80 H* Calcium Phosphorus Magnesium Ferritin AST ALT Lactate Dehydrogenase Total Creatine Kinase C-Reactive Protein Total Protein Albumin Triglycerides Arterial Blood Glucose 189 H 161 H Arterial Blood Ionized Calcium 4.3 L 4.2 L Urine Creatinine Urine Chloride Vancomycin Trough Coronavirus (PCR) Crossmatch 06/18/20 06/18/20 06/18/20 05:39 05:39 05:39 WBC 26.2 H RBC Hgb Hct RDW Lymph % (Auto) Lymph # (Auto) [place] # (Auto) Seg Neuts % (Manual) 90.0 H Lymphocytes % (Manual) 5.0 L Nucleated RBC % Seg Neutrophils # Seg Neutrophils # Man 23.6 H Lymphocytes # (Manual) Monocytes # (Manual) 1.3 H PT INR APTT D-Dimer Heparin Anti-Xa Level ABG pH POC ABG pCO2 POC ABG pO2 ABG Hemoglobin ABG Oxyhemoglobin ABG Sodium ABG Potassium ABG Chloride ABG Glucose Carboxyhemoglobin Sodium 135 L Potassium Chloride 97.5 L Carbon Dioxide 21 L BUN 39 H Creatinine 1.7 H D Glucose 168 H POC Glucose Lactic Acid 3.40 H* Calcium 7.2 L Phosphorus Magnesium Ferritin AST ALT Lactate Dehydrogenase Total Creatine Kinase C-Reactive Protein Total Protein Albumin Triglycerides Arterial Blood Glucose Arterial Blood Ionized Calcium Urine Creatinine Urine Chloride Vancomycin Trough Coronavirus (PCR) Crossmatch 06/18/20 06/18/20 06/18/20 07:24 09:00 10:10 WBC RBC Hgb Hct RDW Lymph % (Auto) Lymph # (Auto) [place] # (Auto) Seg Neuts % (Manual) Lymphocytes % (Manual) Nucleated RBC % Seg Neutrophils # Seg Neutrophils # Man Lymphocytes # (Manual) Monocytes # (Manual) PT INR APTT D-Dimer Heparin Anti-Xa Level ABG pH POC ABG pCO2 POC ABG pO2 ABG Hemoglobin ABG Oxyhemoglobin ABG Sodium ABG Potassium ABG Chloride ABG Glucose Carboxyhemoglobin Sodium Potassium Chloride Carbon Dioxide BUN Creatinine Glucose POC Glucose Lactic Acid 2.90 H* 3.20 H* Calcium Phosphorus Magnesium Ferritin AST ALT Lactate Dehydrogenase Total Creatine Kinase C-Reactive Protein Total Protein Albumin Triglycerides Arterial Blood Glucose Arterial Blood Ionized Calcium Urine Creatinine Urine Chloride Vancomycin Trough Coronavirus (PCR) Positive A Crossmatch 06/18/20 06/18/20 06/18/20 11:58 14:43 15:00 WBC RBC Hgb Hct RDW Lymph % (Auto) Lymph # (Auto) [place] # (Auto) Seg Neuts % (Manual) Lymphocytes % (Manual) Nucleated RBC % Seg Neutrophils # Seg Neutrophils # Man Lymphocytes # (Manual) Monocytes # (Manual) PT INR APTT D-Dimer Heparin Anti-Xa Level ABG pH 7.303 L POC ABG pCO2 POC ABG pO2 82.3 L ABG Hemoglobin ABG Oxyhemoglobin ABG Sodium 135.3 L ABG Potassium ABG Chloride ABG Glucose 215 H Carboxyhemoglobin 0.3 L Sodium Potassium Chloride Carbon Dioxide BUN Creatinine Glucose POC Glucose 209 H Lactic Acid Calcium Phosphorus Magnesium Ferritin AST ALT Lactate Dehydrogenase Total Creatine Kinase C-Reactive Protein Total Protein Albumin Triglycerides Arterial Blood Glucose 215 H Arterial Blood Ionized Calcium 4.2 L Urine Creatinine 192.4 H Urine Chloride 31.1 L Vancomycin Trough Coronavirus (PCR) Crossmatch 06/18/20 06/18/20 06/18/20 17:16 19:44 20:33 WBC RBC Hgb Hct RDW Lymph % (Auto) Lymph # (Auto) [place] # (Auto) Seg Neuts % (Manual) Lymphocytes % (Manual) Nucleated RBC % Seg Neutrophils # Seg Neutrophils # Man Lymphocytes # (Manual) Monocytes # (Manual) PT INR APTT D-Dimer Heparin Anti-Xa Level ABG pH POC ABG pCO2 POC ABG pO2 ABG Hemoglobin ABG Oxyhemoglobin ABG Sodium ABG Potassium ABG Chloride ABG Glucose Carboxyhemoglobin Sodium Potassium Chloride Carbon Dioxide BUN Creatinine Glucose POC Glucose 182 H Lactic Acid 3.00 H* Calcium Phosphorus Magnesium 2.70 H Ferritin AST ALT Lactate Dehydrogenase Total Creatine Kinase C-Reactive Protein Total Protein Albumin Triglycerides Arterial Blood Glucose Arterial Blood Ionized Calcium Urine Creatinine Urine Chloride Vancomycin Trough Coronavirus (PCR) Crossmatch 06/18/20 06/19/20 06/19/20 23:43 04:00 04:00 WBC 31.6 H RBC Hgb Hct RDW Lymph % (Auto) Lymph # (Auto) [place] # (Auto) Seg Neuts % (Manual) 98.0 H Lymphocytes % (Manual) 0.5 L Nucleated RBC % Seg Neutrophils # Seg Neutrophils # Man 31.0 H Lymphocytes # (Manual) 0.2 L Monocytes # (Manual) PT INR APTT D-Dimer Heparin Anti-Xa Level ABG pH POC ABG pCO2 POC ABG pO2 ABG Hemoglobin ABG Oxyhemoglobin ABG Sodium ABG Potassium ABG Chloride ABG Glucose Carboxyhemoglobin Sodium Potassium Chloride Carbon Dioxide BUN 56 H Creatinine 1.6 H Glucose 176 H POC Glucose 149 H Lactic Acid Calcium 7.0 L Phosphorus Magnesium Ferritin AST 244 H ALT 159 H Lactate Dehydrogenase Total Creatine Kinase C-Reactive Protein Total Protein 4.9 L D Albumin 2.5 L Triglycerides Arterial Blood Glucose Arterial Blood Ionized Calcium Urine Creatinine Urine Chloride Vancomycin Trough Coronavirus (PCR) Crossmatch 06/19/20 06/19/20 06/19/20 04:00 05:44 11:42 WBC RBC Hgb Hct RDW Lymph % (Auto) Lymph # (Auto) [place] # (Auto) Seg Neuts % (Manual) Lymphocytes % (Manual) Nucleated RBC % Seg Neutrophils # Seg Neutrophils # Man Lymphocytes # (Manual) Monocytes # (Manual) PT INR APTT D-Dimer Heparin Anti-Xa Level ABG pH 7.265 L POC ABG pCO2 51.8 H POC ABG pO2 65.1 L ABG Hemoglobin ABG Oxyhemoglobin ABG Sodium ABG Potassium ABG Chloride ABG Glucose 184 H Carboxyhemoglobin Sodium Potassium Chloride Carbon Dioxide BUN Creatinine Glucose POC Glucose 156 H 191 H Lactic Acid Calcium Phosphorus Magnesium Ferritin AST ALT Lactate Dehydrogenase Total Creatine Kinase C-Reactive Protein Total Protein Albumin Triglycerides Arterial Blood Glucose 184 H Arterial Blood Ionized Calcium 4.3 L Urine Creatinine Urine Chloride Vancomycin Trough Coronavirus (PCR) Crossmatch 06/19/20 06/19/20 06/19/20 12:30 17:16 18:36 WBC RBC Hgb Hct RDW Lymph % (Auto) Lymph # (Auto) [place] # (Auto) Seg Neuts % (Manual) Lymphocytes % (Manual) Nucleated RBC % Seg Neutrophils # Seg Neutrophils # Man Lymphocytes # (Manual) Monocytes # (Manual) PT 16.4 H INR 1.32 H APTT D-Dimer Heparin Anti-Xa Level ABG pH 7.088 L POC ABG pCO2 78.1 H POC ABG pO2 208.3 H ABG Hemoglobin ABG Oxyhemoglobin 98.3 H ABG Sodium ABG Potassium 5.0 H ABG Chloride ABG Glucose 182 H Carboxyhemoglobin 0.4 L Sodium Potassium Chloride Carbon Dioxide BUN Creatinine Glucose POC Glucose 154 H Lactic Acid Calcium Phosphorus Magnesium Ferritin AST ALT Lactate Dehydrogenase Total Creatine Kinase C-Reactive Protein Total Protein Albumin Triglycerides Arterial Blood Glucose 182 H Arterial Blood Ionized Calcium 4.3 L Urine Creatinine Urine Chloride Vancomycin Trough Coronavirus (PCR) Crossmatch 06/19/20 06/20/20 06/20/20 23:32 03:00 05:19 WBC RBC Hgb Hct RDW Lymph % (Auto) Lymph # (Auto) [place] # (Auto) Seg Neuts % (Manual) Lymphocytes % (Manual) Nucleated RBC % Seg Neutrophils # Seg Neutrophils # Man Lymphocytes # (Manual) Monocytes # (Manual) PT INR APTT D-Dimer Heparin Anti-Xa Level 0.77 H ABG pH POC ABG pCO2 POC ABG pO2 ABG Hemoglobin ABG Oxyhemoglobin ABG Sodium ABG Potassium ABG Chloride ABG Glucose Carboxyhemoglobin Sodium Potassium Chloride Carbon Dioxide BUN Creatinine Glucose POC Glucose 201 H 190 H Lactic Acid Calcium Phosphorus Magnesium Ferritin AST ALT Lactate Dehydrogenase Total Creatine Kinase C-Reactive Protein Total Protein Albumin Triglycerides Arterial Blood Glucose Arterial Blood Ionized Calcium Urine Creatinine Urine Chloride Vancomycin Trough Coronavirus (PCR) Crossmatch 06/20/20 06/20/20 06/20/20 08:25 08:25 11:36 WBC RBC Hgb Hct RDW Lymph % (Auto) Lymph # (Auto) [place] # (Auto) Seg Neuts % (Manual) Lymphocytes % (Manual) Nucleated RBC % Seg Neutrophils # Seg Neutrophils # Man Lymphocytes # (Manual) Monocytes # (Manual) PT INR APTT D-Dimer Heparin Anti-Xa Level ABG pH POC ABG pCO2 POC ABG pO2 ABG Hemoglobin ABG Oxyhemoglobin ABG Sodium ABG Potassium ABG Chloride ABG Glucose Carboxyhemoglobin Sodium 135 L Potassium 5.4 H Chloride 109.2 H Carbon Dioxide 19 L BUN 68 H Creatinine 2.5 H D Glucose 201 H POC Glucose 184 H Lactic Acid Calcium 5.5 L* D Phosphorus Magnesium Ferritin AST 123 H ALT 86 H Lactate Dehydrogenase Total Creatine Kinase C-Reactive Protein Total Protein 4.6 L Albumin 1.5 L Triglycerides Arterial Blood Glucose Arterial Blood Ionized Calcium Urine Creatinine Urine Chloride Vancomycin Trough 22.7 H Coronavirus (PCR) Crossmatch 06/20/20 06/20/20 06/20/20 11:40 17:28 20:00 WBC RBC Hgb Hct RDW Lymph % (Auto) Lymph # (Auto) [place] # (Auto) Seg Neuts % (Manual) Lymphocytes % (Manual) Nucleated RBC % Seg Neutrophils # Seg Neutrophils # Man Lymphocytes # (Manual) Monocytes # (Manual) PT INR APTT D-Dimer Heparin Anti-Xa Level 0.89 H ABG pH 7.099 L POC ABG pCO2 61.1 H POC ABG pO2 ABG Hemoglobin ABG Oxyhemoglobin ABG Sodium ABG Potassium 5.0 H ABG Chloride 111.0 H ABG Glucose 200 H Carboxyhemoglobin 0.4 L Sodium Potassium Chloride Carbon Dioxide BUN Creatinine Glucose POC Glucose 165 H Lactic Acid Calcium Phosphorus Magnesium Ferritin AST ALT Lactate Dehydrogenase Total Creatine Kinase C-Reactive Protein Total Protein Albumin Triglycerides Arterial Blood Glucose 200 H Arterial Blood Ionized Calcium 4.2 L Urine Creatinine Urine Chloride Vancomycin Trough Coronavirus (PCR) Crossmatch 06/20/20 06/21/20 06/21/20 23:29 05:00 05:20 WBC RBC Hgb Hct RDW Lymph % (Auto) Lymph # (Auto) [place] # (Auto) Seg Neuts % (Manual) Lymphocytes % (Manual) Nucleated RBC % Seg Neutrophils # Seg Neutrophils # Man Lymphocytes # (Manual) Monocytes # (Manual) PT INR APTT D-Dimer Heparin Anti-Xa Level ABG pH POC ABG pCO2 POC ABG pO2 ABG Hemoglobin ABG Oxyhemoglobin ABG Sodium ABG Potassium ABG Chloride ABG Glucose Carboxyhemoglobin Sodium Potassium Chloride 112.0 H Carbon Dioxide 20 L BUN 92 H Creatinine 3.9 H D Glucose 214 H POC Glucose 145 H 191 H Lactic Acid Calcium 6.5 L D Phosphorus Magnesium Ferritin AST 98 H ALT 84 H Lactate Dehydrogenase Total Creatine Kinase C-Reactive Protein Total Protein 4.6 L Albumin 2.1 L Triglycerides 180 H Arterial Blood Glucose Arterial Blood Ionized Calcium Urine Creatinine Urine Chloride Vancomycin Trough Coronavirus (PCR) Crossmatch 06/21/20 06/21/20 06/21/20 08:56 11:12 12:43 WBC RBC Hgb Hct RDW Lymph % (Auto) Lymph # (Auto) [place] # (Auto) Seg Neuts % (Manual) Lymphocytes % (Manual) Nucleated RBC % Seg Neutrophils # Seg Neutrophils # Man Lymphocytes # (Manual) Monocytes # (Manual) PT INR APTT D-Dimer Heparin Anti-Xa Level 0.28 L ABG pH 7.184 L POC ABG pCO2 48.3 H POC ABG pO2 172.1 H ABG Hemoglobin ABG Oxyhemoglobin 98.7 H ABG Sodium ABG Potassium 4.9 H ABG Chloride 112.0 H ABG Glucose 196 H Carboxyhemoglobin 0.2 L Sodium Potassium Chloride Carbon Dioxide BUN Creatinine Glucose POC Glucose 177 H Lactic Acid Calcium Phosphorus Magnesium Ferritin AST ALT Lactate Dehydrogenase Total Creatine Kinase C-Reactive Protein Total Protein Albumin Triglycerides Arterial Blood Glucose 196 H Arterial Blood Ionized Calcium 4.1 L Urine Creatinine Urine Chloride Vancomycin Trough Coronavirus (PCR) Crossmatch 06/21/20 06/21/20 06/22/20 16:31 Unknown 00:12 WBC RBC Hgb Hct RDW Lymph % (Auto) Lymph # (Auto) [place] # (Auto) Seg Neuts % (Manual) Lymphocytes % (Manual) Nucleated RBC % Seg Neutrophils # Seg Neutrophils # Man Lymphocytes # (Manual) Monocytes # (Manual) PT INR APTT D-Dimer Heparin Anti-Xa Level 0.78 H ABG pH POC ABG pCO2 POC ABG pO2 ABG Hemoglobin ABG Oxyhemoglobin ABG Sodium ABG Potassium ABG Chloride ABG Glucose Carboxyhemoglobin Sodium Potassium Chloride Carbon Dioxide BUN Creatinine Glucose POC Glucose 150 H 173 H Lactic Acid Calcium Phosphorus Magnesium Ferritin AST ALT Lactate Dehydrogenase Total Creatine Kinase C-Reactive Protein Total Protein Albumin Triglycerides Arterial Blood Glucose Arterial Blood Ionized Calcium Urine Creatinine Urine Chloride Vancomycin Trough Coronavirus (PCR) Crossmatch 06/22/20 06/22/20 06/22/20 04:00 05:04 05:30 WBC 33.9 H RBC Hgb 11.7 L Hct 35.2 L RDW 15.8 H Lymph % (Auto) Lymph # (Auto) [place] # (Auto) Seg Neuts % (Manual) 93.0 H Lymphocytes % (Manual) 5.0 L Nucleated RBC % Seg Neutrophils # Seg Neutrophils # Man 31.5 H Lymphocytes # (Manual) Monocytes # (Manual) PT INR APTT D-Dimer Heparin Anti-Xa Level ABG pH 7.169 L POC ABG pCO2 POC ABG pO2 ABG Hemoglobin ABG Oxyhemoglobin ABG Sodium ABG Potassium 5.1 H ABG Chloride 112.0 H ABG Glucose 186 H Carboxyhemoglobin 0.3 L Sodium Potassium Chloride Carbon Dioxide BUN Creatinine Glucose POC Glucose 161 H Lactic Acid Calcium Phosphorus Magnesium Ferritin AST ALT Lactate Dehydrogenase Total Creatine Kinase C-Reactive Protein Total Protein Albumin Triglycerides Arterial Blood Glucose 186 H Arterial Blood Ionized Calcium 4.1 L Urine Creatinine Urine Chloride Vancomycin Trough Coronavirus (PCR) Crossmatch 06/22/20 06/22/20 06/22/20 05:30 11:39 13:27 WBC RBC Hgb Hct RDW Lymph % (Auto) Lymph # (Auto) [place] # (Auto) Seg Neuts % (Manual) Lymphocytes % (Manual) Nucleated RBC % Seg Neutrophils # Seg Neutrophils # Man Lymphocytes # (Manual) Monocytes # (Manual) PT INR APTT D-Dimer Heparin Anti-Xa Level ABG pH POC ABG pCO2 POC ABG pO2 ABG Hemoglobin ABG Oxyhemoglobin ABG Sodium ABG Potassium ABG Chloride ABG Glucose Carboxyhemoglobin Sodium Potassium 5.7 H Chloride 111.3 H Carbon Dioxide 18 L BUN 112 H Creatinine 5.0 H Glucose 173 H POC Glucose 172 H 176 H Lactic Acid Calcium 6.7 L Phosphorus Magnesium Ferritin AST ALT Lactate Dehydrogenase Total Creatine Kinase C-Reactive Protein Total Protein Albumin Triglycerides Arterial Blood Glucose Arterial Blood Ionized Calcium Urine Creatinine Urine Chloride Vancomycin Trough Coronavirus (PCR) Crossmatch 06/22/20 06/22/20 06/22/20 14:37 17:00 17:40 WBC RBC Hgb Hct RDW Lymph % (Auto) Lymph # (Auto) [place] # (Auto) Seg Neuts % (Manual) Lymphocytes % (Manual) Nucleated RBC % Seg Neutrophils # Seg Neutrophils # Man Lymphocytes # (Manual) Monocytes # (Manual) PT INR APTT D-Dimer Heparin Anti-Xa Level 1.32 H ABG pH POC ABG pCO2 POC ABG pO2 ABG Hemoglobin ABG Oxyhemoglobin ABG Sodium ABG Potassium ABG Chloride ABG Glucose Carboxyhemoglobin Sodium Potassium Chloride Carbon Dioxide BUN Creatinine Glucose POC Glucose 171 H Lactic Acid Calcium Phosphorus Magnesium Ferritin AST ALT Lactate Dehydrogenase Total Creatine Kinase C-Reactive Protein 5.30 H Total Protein Albumin Triglycerides Arterial Blood Glucose Arterial Blood Ionized Calcium Urine Creatinine Urine Chloride Vancomycin Trough Coronavirus (PCR) Crossmatch 06/22/20 06/23/20 06/23/20 23:36 02:13 02:41 WBC RBC Hgb Hct RDW Lymph % (Auto) Lymph # (Auto) [place] # (Auto) Seg Neuts % (Manual) Lymphocytes % (Manual) Nucleated RBC % Seg Neutrophils # Seg Neutrophils # Man Lymphocytes # (Manual) Monocytes # (Manual) PT INR APTT D-Dimer Heparin Anti-Xa Level 0.21 L ABG pH 7.318 L POC ABG pCO2 POC ABG pO2 157.5 H ABG Hemoglobin ABG Oxyhemoglobin ABG Sodium 135.6 L ABG Potassium 4.6 H ABG Chloride 110.0 H ABG Glucose 169 H Carboxyhemoglobin Sodium Potassium Chloride Carbon Dioxide BUN Creatinine Glucose POC Glucose 155 H Lactic Acid Calcium Phosphorus Magnesium Ferritin AST ALT Lactate Dehydrogenase Total Creatine Kinase C-Reactive Protein Total Protein Albumin Triglycerides Arterial Blood Glucose 169 H Arterial Blood Ionized Calcium Urine Creatinine Urine Chloride Vancomycin Trough Coronavirus (PCR) Crossmatch 06/23/20 06/23/20 06/23/20 04:00 04:00 05:24 WBC 27.4 H RBC Hgb 11.3 L Hct 33.8 L RDW Lymph % (Auto) Lymph # (Auto) [place] # (Auto) Seg Neuts % (Manual) 93.0 H Lymphocytes % (Manual) 1.0 L Nucleated RBC % 1.0 H Seg Neutrophils # Seg Neutrophils # Man 25.5 H Lymphocytes # (Manual) 0.3 L Monocytes # (Manual) 1.1 H PT INR APTT D-Dimer Heparin Anti-Xa Level ABG pH POC ABG pCO2 POC ABG pO2 ABG Hemoglobin ABG Oxyhemoglobin ABG Sodium ABG Potassium ABG Chloride ABG Glucose Carboxyhemoglobin Sodium Potassium Chloride 107.6 H Carbon Dioxide 20 L BUN 100 H Creatinine 4.7 H Glucose 168 H POC Glucose 151 H Lactic Acid Calcium Phosphorus Magnesium Ferritin AST ALT Lactate Dehydrogenase Total Creatine Kinase C-Reactive Protein Total Protein Albumin Triglycerides Arterial Blood Glucose Arterial Blood Ionized Calcium Urine Creatinine Urine Chloride Vancomycin Trough Coronavirus (PCR) Crossmatch 06/23/20 06/23/20 06/23/20 11:30 17:18 23:50 WBC RBC Hgb Hct RDW Lymph % (Auto) Lymph # (Auto) [place] # (Auto) Seg Neuts % (Manual) Lymphocytes % (Manual) Nucleated RBC % Seg Neutrophils # Seg Neutrophils # Man Lymphocytes # (Manual) Monocytes # (Manual) PT INR APTT D-Dimer Heparin Anti-Xa Level ABG pH POC ABG pCO2 POC ABG pO2 ABG Hemoglobin ABG Oxyhemoglobin ABG Sodium ABG Potassium ABG Chloride ABG Glucose Carboxyhemoglobin Sodium Potassium Chloride Carbon Dioxide BUN Creatinine Glucose POC Glucose 157 H 156 H 162 H Lactic Acid Calcium Phosphorus Magnesium Ferritin AST ALT Lactate Dehydrogenase Total Creatine Kinase C-Reactive Protein Total Protein Albumin Triglycerides Arterial Blood Glucose Arterial Blood Ionized Calcium Urine Creatinine Urine Chloride Vancomycin Trough Coronavirus (PCR) Crossmatch 06/24/20 06/24/20 06/24/20 04:41 05:57 06:30 WBC 34.3 H RBC Hgb 10.9 L Hct 32.6 L RDW Lymph % (Auto) 2.0 L Lymph # (Auto) 0.7 L [place] # (Auto) 1.2 H Seg Neuts % (Manual) 96.0 H Lymphocytes % (Manual) 3.0 L Nucleated RBC % Seg Neutrophils # 32.3 H Seg Neutrophils # Man 32.9 H Lymphocytes # (Manual) 1.0 L Monocytes # (Manual) PT INR APTT D-Dimer Heparin Anti-Xa Level ABG pH POC ABG pCO2 POC ABG pO2 71.1 L ABG Hemoglobin ABG Oxyhemoglobin 92.4 L ABG Sodium 115.6 L ABG Potassium ABG Chloride ABG Glucose 159 H Carboxyhemoglobin Sodium Potassium Chloride Carbon Dioxide BUN Creatinine Glucose POC Glucose 143 H Lactic Acid Calcium Phosphorus Magnesium Ferritin AST ALT Lactate Dehydrogenase Total Creatine Kinase C-Reactive Protein Total Protein Albumin Triglycerides Arterial Blood Glucose 159 H Arterial Blood Ionized Calcium 4.2 L Urine Creatinine Urine Chloride Vancomycin Trough Coronavirus (PCR) Crossmatch 06/24/20 06/24/20 06/24/20 07:03 09:37 11:56 WBC RBC Hgb Hct RDW Lymph % (Auto) Lymph # (Auto) [place] # (Auto) Seg Neuts % (Manual) Lymphocytes % (Manual) Nucleated RBC % Seg Neutrophils # Seg Neutrophils # Man Lymphocytes # (Manual) Monocytes # (Manual) PT INR APTT D-Dimer Heparin Anti-Xa Level 0.26 L ABG pH POC ABG pCO2 POC ABG pO2 ABG Hemoglobin ABG Oxyhemoglobin ABG Sodium ABG Potassium ABG Chloride ABG Glucose Carboxyhemoglobin Sodium Potassium 5.1 H Chloride Carbon Dioxide BUN 103 H Creatinine 5.0 H Glucose 163 H POC Glucose 149 H Lactic Acid Calcium 7.6 L Phosphorus Magnesium Ferritin AST ALT Lactate Dehydrogenase Total Creatine Kinase C-Reactive Protein Total Protein Albumin Triglycerides Arterial Blood Glucose Arterial Blood Ionized Calcium Urine Creatinine Urine Chloride Vancomycin Trough Coronavirus (PCR) Crossmatch 06/24/20 06/25/20 06/25/20 18:09 01:05 03:00 WBC RBC Hgb 10.6 L Hct 32.1 L RDW Lymph % (Auto) Lymph # (Auto) [place] # (Auto) Seg Neuts % (Manual) Lymphocytes % (Manual) Nucleated RBC % Seg Neutrophils # Seg Neutrophils # Man Lymphocytes # (Manual) Monocytes # (Manual) PT INR APTT D-Dimer Heparin Anti-Xa Level ABG pH POC ABG pCO2 POC ABG pO2 ABG Hemoglobin ABG Oxyhemoglobin ABG Sodium ABG Potassium ABG Chloride ABG Glucose Carboxyhemoglobin Sodium Potassium Chloride Carbon Dioxide BUN Creatinine Glucose POC Glucose 141 H 137 H Lactic Acid Calcium Phosphorus Magnesium Ferritin AST ALT Lactate Dehydrogenase Total Creatine Kinase C-Reactive Protein Total Protein Albumin Triglycerides Arterial Blood Glucose Arterial Blood Ionized Calcium Urine Creatinine Urine Chloride Vancomycin Trough Coronavirus (PCR) Crossmatch 06/25/20 06/25/20 06/25/20 03:48 05:17 12:08 WBC RBC Hgb Hct RDW Lymph % (Auto) Lymph # (Auto) [place] # (Auto) Seg Neuts % (Manual) Lymphocytes % (Manual) Nucleated RBC % Seg Neutrophils # Seg Neutrophils # Man Lymphocytes # (Manual) Monocytes # (Manual) PT INR APTT D-Dimer Heparin Anti-Xa Level ABG pH POC ABG pCO2 29.4 L POC ABG pO2 67.1 L ABG Hemoglobin 11.5 L ABG Oxyhemoglobin ABG Sodium 124.1 L ABG Potassium 4.6 H ABG Chloride ABG Glucose 159 H Carboxyhemoglobin Sodium Potassium Chloride Carbon Dioxide BUN Creatinine Glucose POC Glucose 149 H 150 H Lactic Acid Calcium Phosphorus Magnesium Ferritin AST ALT Lactate Dehydrogenase Total Creatine Kinase C-Reactive Protein Total Protein Albumin Triglycerides Arterial Blood Glucose 159 H Arterial Blood Ionized Calcium 4.2 L Urine Creatinine Urine Chloride Vancomycin Trough Coronavirus (PCR) Crossmatch 06/25/20 06/25/20 06/25/20 16:27 16:35 17:27 WBC RBC Hgb Hct RDW Lymph % (Auto) Lymph # (Auto) [place] # (Auto) Seg Neuts % (Manual) Lymphocytes % (Manual) Nucleated RBC % Seg Neutrophils # Seg Neutrophils # Man Lymphocytes # (Manual) Monocytes # (Manual) PT INR APTT D-Dimer Heparin Anti-Xa Level < 0.10 L ABG pH POC ABG pCO2 POC ABG pO2 ABG Hemoglobin ABG Oxyhemoglobin ABG Sodium ABG Potassium ABG Chloride ABG Glucose Carboxyhemoglobin Sodium Potassium Chloride Carbon Dioxide BUN Creatinine Glucose POC Glucose 143 H 156 H Lactic Acid Calcium Phosphorus Magnesium Ferritin AST ALT Lactate Dehydrogenase Total Creatine Kinase C-Reactive Protein Total Protein Albumin Triglycerides Arterial Blood Glucose Arterial Blood Ionized Calcium Urine Creatinine Urine Chloride Vancomycin Trough Coronavirus (PCR) Crossmatch 06/25/20 06/25/20 06/25/20 20:00 20:55 23:10 WBC 32.7 H RBC 3.06 L Hgb 9.0 L 9.5 L Hct 26.7 L 28.6 L RDW Lymph % (Auto) Lymph # (Auto) [place] # (Auto) Seg Neuts % (Manual) Lymphocytes % (Manual) 2.0 L Nucleated RBC % Seg Neutrophils # Seg Neutrophils # Man 30.7 H Lymphocytes # (Manual) 0.7 L Monocytes # (Manual) 1.3 H PT 17.7 H INR 1.47 H APTT 65.8 H* D-Dimer Heparin Anti-Xa Level ABG pH POC ABG pCO2 POC ABG pO2 ABG Hemoglobin ABG Oxyhemoglobin ABG Sodium ABG Potassium ABG Chloride ABG Glucose Carboxyhemoglobin Sodium Potassium Chloride Carbon Dioxide BUN Creatinine Glucose POC Glucose Lactic Acid Calcium Phosphorus Magnesium Ferritin AST ALT Lactate Dehydrogenase Total Creatine Kinase C-Reactive Protein Total Protein Albumin Triglycerides Arterial Blood Glucose Arterial Blood Ionized Calcium Urine Creatinine Urine Chloride Vancomycin Trough Coronavirus (PCR) Crossmatch 06/25/20 06/26/20 06/26/20 23:14 01:30 03:25 WBC RBC Hgb Hct RDW Lymph % (Auto) Lymph # (Auto) [place] # (Auto) Seg Neuts % (Manual) Lymphocytes % (Manual) Nucleated RBC % Seg Neutrophils # Seg Neutrophils # Man Lymphocytes # (Manual) Monocytes # (Manual) PT INR APTT D-Dimer Heparin Anti-Xa Level < 0.10 L ABG pH POC ABG pCO2 POC ABG pO2 ABG Hemoglobin 11.8 L ABG Oxyhemoglobin ABG Sodium 127.1 L ABG Potassium 5.4 H ABG Chloride ABG Glucose 155 H Carboxyhemoglobin 0.3 L Sodium Potassium Chloride Carbon Dioxide BUN Creatinine Glucose POC Glucose 148 H Lactic Acid Calcium Phosphorus Magnesium Ferritin AST ALT Lactate Dehydrogenase Total Creatine Kinase C-Reactive Protein Total Protein Albumin Triglycerides Arterial Blood Glucose 155 H Arterial Blood Ionized Calcium 4.2 L Urine Creatinine Urine Chloride Vancomycin Trough Coronavirus (PCR) Crossmatch 06/26/20 06/26/20 06/26/20 03:59 05:14 05:47 WBC 36.5 H RBC 3.26 L Hgb 9.7 L Hct 28.2 L RDW Lymph % (Auto) Lymph # (Auto) [place] # (Auto) Seg Neuts % (Manual) 92.0 H Lymphocytes % (Manual) 4.0 L Nucleated RBC % Seg Neutrophils # Seg Neutrophils # Man 33.6 H Lymphocytes # (Manual) Monocytes # (Manual) PT INR APTT D-Dimer Heparin Anti-Xa Level ABG pH POC ABG pCO2 POC ABG pO2 ABG Hemoglobin ABG Oxyhemoglobin ABG Sodium ABG Potassium ABG Chloride ABG Glucose Carboxyhemoglobin Sodium Potassium 5.9 H Chloride Carbon Dioxide 20 L BUN 144 H Creatinine 6.4 H Glucose 149 H POC Glucose 128 H Lactic Acid Calcium 7.6 L Phosphorus Magnesium Ferritin AST ALT Lactate Dehydrogenase Total Creatine Kinase C-Reactive Protein Total Protein Albumin Triglycerides Arterial Blood Glucose Arterial Blood Ionized Calcium Urine Creatinine Urine Chloride Vancomycin Trough Coronavirus (PCR) Crossmatch 06/26/20 06/26/20 06/26/20 05:47 12:47 17:42 WBC RBC Hgb Hct RDW Lymph % (Auto) Lymph # (Auto) [place] # (Auto) Seg Neuts % (Manual) Lymphocytes % (Manual) Nucleated RBC % Seg Neutrophils # Seg Neutrophils # Man Lymphocytes # (Manual) Monocytes # (Manual) PT 17.4 H INR 1.44 H APTT D-Dimer Heparin Anti-Xa Level ABG pH POC ABG pCO2 POC ABG pO2 ABG Hemoglobin ABG Oxyhemoglobin ABG Sodium ABG Potassium ABG Chloride ABG Glucose Carboxyhemoglobin Sodium Potassium Chloride Carbon Dioxide BUN Creatinine Glucose POC Glucose 124 H 127 H Lactic Acid Calcium Phosphorus Magnesium Ferritin AST ALT Lactate Dehydrogenase Total Creatine Kinase C-Reactive Protein Total Protein Albumin Triglycerides Arterial Blood Glucose Arterial Blood Ionized Calcium Urine Creatinine Urine Chloride Vancomycin Trough Coronavirus (PCR) Crossmatch 06/26/20 06/27/20 06/27/20 23:30 03:32 04:00 WBC RBC Hgb 8.7 L Hct 26.4 L RDW Lymph % (Auto) Lymph # (Auto) [place] # (Auto) Seg Neuts % (Manual) Lymphocytes % (Manual) Nucleated RBC % Seg Neutrophils # Seg Neutrophils # Man Lymphocytes # (Manual) Monocytes # (Manual) PT INR APTT D-Dimer Heparin Anti-Xa Level ABG pH 7.298 L POC ABG pCO2 POC ABG pO2 ABG Hemoglobin 9.6 L ABG Oxyhemoglobin ABG Sodium 124.4 L ABG Potassium 6.6 H ABG Chloride ABG Glucose 136 H Carboxyhemoglobin Sodium Potassium Chloride Carbon Dioxide BUN Creatinine Glucose POC Glucose 123 H Lactic Acid Calcium Phosphorus Magnesium Ferritin AST ALT Lactate Dehydrogenase Total Creatine Kinase C-Reactive Protein Total Protein Albumin Triglycerides Arterial Blood Glucose 136 H Arterial Blood Ionized Calcium 4.1 L Urine Creatinine Urine Chloride Vancomycin Trough Coronavirus (PCR) Crossmatch 06/27/20 06/27/20 06/27/20 05:26 10:14 11:58 WBC RBC Hgb Hct RDW Lymph % (Auto) Lymph # (Auto) [place] # (Auto) Seg Neuts % (Manual) Lymphocytes % (Manual) Nucleated RBC % Seg Neutrophils # Seg Neutrophils # Man Lymphocytes # (Manual) Monocytes # (Manual) PT INR APTT D-Dimer Heparin Anti-Xa Level ABG pH POC ABG pCO2 POC ABG pO2 ABG Hemoglobin ABG Oxyhemoglobin ABG Sodium ABG Potassium ABG Chloride ABG Glucose Carboxyhemoglobin Sodium 136 L Potassium 7.0 H* Chloride 97.8 L Carbon Dioxide BUN 172 H Creatinine 7.4 H Glucose 129 H POC Glucose 124 H 115 H Lactic Acid Calcium 7.6 L Phosphorus Magnesium Ferritin AST ALT Lactate Dehydrogenase Total Creatine Kinase C-Reactive Protein Total Protein Albumin Triglycerides Arterial Blood Glucose Arterial Blood Ionized Calcium Urine Creatinine Urine Chloride Vancomycin Trough Coronavirus (PCR) Crossmatch 06/27/20 06/27/20 06/27/20 17:32 18:30 23:24 WBC RBC Hgb Hct RDW Lymph % (Auto) Lymph # (Auto) [place] # (Auto) Seg Neuts % (Manual) Lymphocytes % (Manual) Nucleated RBC % Seg Neutrophils # Seg Neutrophils # Man Lymphocytes # (Manual) Monocytes # (Manual) PT INR APTT D-Dimer Heparin Anti-Xa Level ABG pH POC ABG pCO2 POC ABG pO2 ABG Hemoglobin ABG Oxyhemoglobin ABG Sodium ABG Potassium ABG Chloride ABG Glucose Carboxyhemoglobin Sodium Potassium 7.3 H* Chloride Carbon Dioxide BUN Creatinine Glucose POC Glucose 122 H 116 H Lactic Acid Calcium Phosphorus Magnesium Ferritin AST ALT Lactate Dehydrogenase Total Creatine Kinase C-Reactive Protein Total Protein Albumin Triglycerides Arterial Blood Glucose Arterial Blood Ionized Calcium Urine Creatinine Urine Chloride Vancomycin Trough Coronavirus (PCR) Crossmatch 06/28/20 06/28/20 06/28/20 00:00 02:16 05:37 WBC RBC Hgb Hct RDW Lymph % (Auto) Lymph # (Auto) [place] # (Auto) Seg Neuts % (Manual) Lymphocytes % (Manual) Nucleated RBC % Seg Neutrophils # Seg Neutrophils # Man Lymphocytes # (Manual) Monocytes # (Manual) PT INR APTT D-Dimer Heparin Anti-Xa Level ABG pH POC ABG pCO2 POC ABG pO2 79.0 L ABG Hemoglobin 11.7 L ABG Oxyhemoglobin ABG Sodium 128.1 L ABG Potassium 6.6 H ABG Chloride ABG Glucose 124 H Carboxyhemoglobin Sodium Potassium 7.3 H* Chloride Carbon Dioxide BUN Creatinine Glucose POC Glucose 115 H Lactic Acid Calcium Phosphorus Magnesium Ferritin AST ALT Lactate Dehydrogenase Total Creatine Kinase C-Reactive Protein Total Protein Albumin Triglycerides Arterial Blood Glucose 124 H Arterial Blood Ionized Calcium 4.2 L Urine Creatinine Urine Chloride Vancomycin Trough Coronavirus (PCR) Crossmatch 06/28/20 06/28/20 06/28/20 10:03 10:03 11:51 WBC 33.6 H RBC 3.03 L Hgb 8.9 L Hct 27.0 L RDW Lymph % (Auto) Lymph # (Auto) [place] # (Auto) Seg Neuts % (Manual) Lymphocytes % (Manual) Nucleated RBC % Seg Neutrophils # Seg Neutrophils # Man Lymphocytes # (Manual) Monocytes # (Manual) PT INR APTT D-Dimer Heparin Anti-Xa Level ABG pH POC ABG pCO2 POC ABG pO2 ABG Hemoglobin ABG Oxyhemoglobin ABG Sodium ABG Potassium ABG Chloride ABG Glucose Carboxyhemoglobin Sodium 136 L Potassium 6.5 H* Chloride Carbon Dioxide 20 L BUN 129 H Creatinine 5.8 H Glucose 113 H POC Glucose 107 H Lactic Acid Calcium 7.6 L Phosphorus Magnesium Ferritin AST ALT Lactate Dehydrogenase Total Creatine Kinase C-Reactive Protein Total Protein Albumin Triglycerides Arterial Blood Glucose Arterial Blood Ionized Calcium Urine Creatinine Urine Chloride Vancomycin Trough Coronavirus (PCR) Crossmatch 06/28/20 06/28/20 06/29/20 17:45 Unknown 03:15 WBC RBC Hgb Hct RDW Lymph % (Auto) Lymph # (Auto) [place] # (Auto) Seg Neuts % (Manual) Lymphocytes % (Manual) Nucleated RBC % Seg Neutrophils # Seg Neutrophils # Man Lymphocytes # (Manual) Monocytes # (Manual) PT INR APTT D-Dimer Heparin Anti-Xa Level ABG pH POC ABG pCO2 POC ABG pO2 ABG Hemoglobin 7.8 L ABG Oxyhemoglobin ABG Sodium 127.4 L ABG Potassium 5.5 H ABG Chloride 97.0 L ABG Glucose 96 H Carboxyhemoglobin Sodium Potassium 5.4 H Chloride Carbon Dioxide BUN Creatinine Glucose POC Glucose 117 H Lactic Acid Calcium Phosphorus Magnesium Ferritin AST ALT Lactate Dehydrogenase Total Creatine Kinase C-Reactive Protein Total Protein Albumin Triglycerides Arterial Blood Glucose 96 H Arterial Blood Ionized Calcium 4.0 L Urine Creatinine Urine Chloride Vancomycin Trough Coronavirus (PCR) Crossmatch 06/29/20 06/29/20 06/29/20 03:45 Unknown Unknown WBC RBC Hgb Hct RDW Lymph % (Auto) Lymph # (Auto) [place] # (Auto) Seg Neuts % (Manual) Lymphocytes % (Manual) Nucleated RBC % Seg Neutrophils # Seg Neutrophils # Man Lymphocytes # (Manual) Monocytes # (Manual) PT INR APTT D-Dimer Heparin Anti-Xa Level ABG pH POC ABG pCO2 POC ABG pO2 ABG Hemoglobin ABG Oxyhemoglobin ABG Sodium ABG Potassium ABG Chloride ABG Glucose Carboxyhemoglobin Sodium 135 L Potassium 6.0 H 6.1 H* Chloride 94.8 L Carbon Dioxide BUN 109 H 114 H Creatinine 5.5 H Glucose POC Glucose Lactic Acid Calcium 7.4 L Phosphorus Magnesium Ferritin AST 47 H ALT Lactate Dehydrogenase Total Creatine Kinase C-Reactive Protein Total Protein 4.9 L Albumin 2.2 L Triglycerides Arterial Blood Glucose Arterial Blood Ionized Calcium Urine Creatinine Urine Chloride Vancomycin Trough Coronavirus (PCR) Crossmatch 06/29/20 06/29/20 06/30/20 Unknown Unknown 03:32 WBC 20.7 H RBC 2.57 L Hgb 7.6 L Hct 23.0 L RDW Lymph % (Auto) Lymph # (Auto) [place] # (Auto) Seg Neuts % (Manual) Lymphocytes % (Manual) Nucleated RBC % Seg Neutrophils # Seg Neutrophils # Man Lymphocytes # (Manual) Monocytes # (Manual) PT INR APTT D-Dimer Heparin Anti-Xa Level ABG pH POC ABG pCO2 POC ABG pO2 ABG Hemoglobin 11.4 L ABG Oxyhemoglobin ABG Sodium 130.1 L ABG Potassium 5.0 H ABG Chloride ABG Glucose Carboxyhemoglobin Sodium Potassium Chloride Carbon Dioxide BUN Creatinine Glucose POC Glucose Lactic Acid Calcium Phosphorus Magnesium Ferritin AST ALT Lactate Dehydrogenase Total Creatine Kinase 618 H C-Reactive Protein Total Protein Albumin Triglycerides Arterial Blood Glucose Arterial Blood Ionized Calcium 3.9 L Urine Creatinine Urine Chloride Vancomycin Trough Coronavirus (PCR) Crossmatch 02/06/30/20 06/30/20 03:50 03:50 11:39 WBC 13.1 H RBC Hgb Hct RDW Lymph % (Auto) Lymph # (Auto) [place] # (Auto) Seg Neuts % (Manual) 95.0 H Lymphocytes % (Manual) 3.0 L Nucleated RBC % Seg Neutrophils # Seg Neutrophils # Man 12.4 H Lymphocytes # (Manual) 0.4 L Monocytes # (Manual) PT INR APTT D-Dimer Heparin Anti-Xa Level ABG pH POC ABG pCO2 POC ABG pO2 ABG Hemoglobin ABG Oxyhemoglobin ABG Sodium ABG Potassium ABG Chloride ABG Glucose Carboxyhemoglobin Sodium 135 L Potassium 5.4 H D Chloride 93.6 L Carbon Dioxide BUN 85 H Creatinine 4.6 H Glucose POC Glucose 111 H Lactic Acid Calcium 7.1 L Phosphorus 9.40 H Magnesium Ferritin AST ALT Lactate Dehydrogenase Total Creatine Kinase C-Reactive Protein Total Protein Albumin Triglycerides Arterial Blood Glucose Arterial Blood Ionized Calcium Urine Creatinine Urine Chloride Vancomycin Trough Coronavirus (PCR) Crossmatch 06/30/20 06/30/20 07/01/20 13:12 Unknown 03:19 WBC RBC Hgb 7.8 L D Hct 23.2 L D RDW Lymph % (Auto) Lymph # (Auto) [place] # (Auto) Seg Neuts % (Manual) Lymphocytes % (Manual) Nucleated RBC % Seg Neutrophils # Seg Neutrophils # Man Lymphocytes # (Manual) Monocytes # (Manual) PT INR APTT D-Dimer Heparin Anti-Xa Level ABG pH 7.461 H POC ABG pCO2 POC ABG pO2 77.2 L ABG Hemoglobin 6.9 L ABG Oxyhemoglobin ABG Sodium 128.5 L ABG Potassium ABG Chloride 97.0 L ABG Glucose Carboxyhemoglobin Sodium Potassium Chloride Carbon Dioxide BUN Creatinine Glucose POC Glucose Lactic Acid Calcium Phosphorus Magnesium Ferritin AST ALT Lactate Dehydrogenase Total Creatine Kinase C-Reactive Protein Total Protein Albumin Triglycerides Arterial Blood Glucose Arterial Blood Ionized Calcium 3.7 L Urine Creatinine Urine Chloride Vancomycin Trough Coronavirus (PCR) Positive A Crossmatch 07/01/20 07/01/20 07/01/20 06:00 06:00 11:04 WBC 16.7 H RBC 2.16 L Hgb 6.4 L Hct 19.2 L* RDW Lymph % (Auto) Lymph # (Auto) [place] # (Auto) Seg Neuts % (Manual) Lymphocytes % (Manual) Nucleated RBC % Seg Neutrophils # Seg Neutrophils # Man Lymphocytes # (Manual) Monocytes # (Manual) PT INR APTT D-Dimer Heparin Anti-Xa Level ABG pH POC ABG pCO2 POC ABG pO2 ABG Hemoglobin ABG Oxyhemoglobin ABG Sodium ABG Potassium ABG Chloride ABG Glucose Carboxyhemoglobin Sodium 136 L Potassium Chloride 95.8 L Carbon Dioxide BUN 72 H Creatinine 4.3 H Glucose POC Glucose Lactic Acid Calcium 6.7 L Phosphorus Magnesium Ferritin AST ALT Lactate Dehydrogenase Total Creatine Kinase C-Reactive Protein Total Protein Albumin Triglycerides 250 H Arterial Blood Glucose Arterial Blood Ionized Calcium Urine Creatinine Urine Chloride Vancomycin Trough Coronavirus (PCR) Crossmatch See Detail Chest x-ray: other (none today) Allied health notes reviewed: nursing
--- NOTE | 2020-07-01 16:39 | Progress Note ---
Assessment and Plan Cultures: SARS CoV2 PCR: Positive as outpatient Blood culture: no growth Sputum culture: no growth A/P: 59-year-old male with obesity, obesity hypoventilation syndrome: #Severe sepsis with septic shock: likely secondary to critical COVID-19 pneumonia. Blood cultures so far negative. ?Bacterial pneumonia component, but sputum culture with no growth. On empiric abx, steroids. Completed Remdesivir. #Critical COVID-19 pneumonia: Procalcitonin also high on admission (Now with worsening GIRISH, no longer reliable), completed empiric antibiotic course. #Acute hypoxic respiratory failure: on the vent #Transaminitis: Likely secondary to COVID-19. #GIRISH: On HD MWF, started 06/22/2020 Recs: -Continue steroids for at least total 10 days -s/p Remdesivir -Completed empiric cefepime, monitor off antibiotics for now. -prophylactic anticoagulation based on d-dimer per hospital protocol -trend ferritin, LDH, d-dimer, CRP every 2-3 days for risk stratification and to assess disease progression -extremely poor prognosis Юлия Finney MD [facility], [place], [facility] ([facility]) O: [phone] F: [phone] Subjective Date of service: 07/01/20 Principal diagnosis: ARF/Septic Shock/COVID-19 PNA, AF with RVR Interval history: Afebrile, white count 16.7 Objective - Exam Narrative Exam: Physical exam deferred due to PPE conservation strategy. Please refer to primary team's note. - Constitutional Vitals: Vital Signs Temp Pulse Resp BP Pulse Ox 98.1 F 85 26 H 151/48 97 07/01/20 14:32 07/01/20 16:15 07/01/20 16:01 07/01/20 16:15 07/01/20 16:01 Temperature -Last 24 Hours Temperature 98.1 F Temperature 98.7 F Temperature 99.0 F Temperature 99.0 F Temperature 99.0 F Temperature 98.7 F Temperature 98.8 F - Labs CBC & Chem 7: 07/01/20 06:00 07/01/20 06:00 Labs: Abnormal lab results 07/01/20 07/01/20 07/01/20 Range/Units 03:19 06:00 06:00 WBC 16.7 H (4.5-11.0) K/mm3 RBC 2.16 L (3.65-5.03) M/mm3 Hgb 6.4 L (11.8-15.2) gm/dl Hct 19.2 L* (35.5-45.6) % ABG pH 7.461 H (7.320-7.450) POC ABG pO2 77.2 L (83-108) mmHg ABG Hemoglobin 6.9 L (12.0-17.5) ABG Sodium 128.5 L (136.0-145.0) mmol/L ABG Chloride 97.0 L (98-107) mmol/L Sodium 136 L (137-145) mmol/L Chloride 95.8 L (98-107) mmol/L BUN 72 H (9-20) mg/dL Creatinine 4.3 H (0.8-1.3) mg/dL Calcium 6.7 L (8.4-10.2) mg/dL Triglycerides 250 H (2-149) mg/dL Arterial Blood Ionized Calcium 3.7 L (4.6-5.3) mg/dL Crossmatch 07/01/20 Range/Units 11:04 WBC (4.5-11.0) K/mm3 RBC (3.65-5.03) M/mm3 Hgb (11.8-15.2) gm/dl Hct (35.5-45.6) % ABG pH (7.320-7.450) POC ABG pO2 (83-108) mmHg ABG Hemoglobin (12.0-17.5) ABG Sodium (136.0-145.0) mmol/L ABG Chloride (98-107) mmol/L Sodium (137-145) mmol/L Chloride (98-107) mmol/L BUN (9-20) mg/dL Creatinine (0.8-1.3) mg/dL Calcium (8.4-10.2) mg/dL Triglycerides (2-149) mg/dL Arterial Blood Ionized Calcium (4.6-5.3) mg/dL Crossmatch See Detail
--- NOTE | 2020-07-01 17:02 | Progress Note ---
Assessment and Plan 59-year-old white male who was admitted for pneumonia secondary to Covid with associated respiratory failure and sepsis. Hyperkalemia -Treated aggressively -Calcium gluconate IV sodium bicarbonate and Kayexalate given Acute metabolic encephalopathy -Due to severe sepsis and severe hypoxia -CT head ordered (patient is too unstable to do the scan), currently intubated, continue supportive care with frequent neuro check Acute hypoxic respiratory failure -Due to severe COVID-19 pneumonia -Intubated following admission overnight as patient was unable to maintain oxygenation with 100% FiO2 with BiPAP -Critical care following, frequent nebulizer breathing treatment, empiric steroid Severe septic shock -Patient currently on 2 pressor support -Wean off as tolerated COVID-19 pneumonia -Follow inflammatory markers, ID consulted --Patient initially tested positive for COVID-19 virus about 2 weeks before this admission -CXR shows patchy parenchymal disease which represent pulmonary edema or atypical pneumonia -Placed on dexamethasone for total 10 days and completed remdesivir total 5 days -Continue empiric antibiotics for now per ID recommendation -Droplet/contact isolation -Continue SPO2 monitoring -Supplemental oxygen as needed -Pulmonary hygiene, Prone intermittently to improve oxygenation -Vitamin C, vitamin D, zinc -Anticoagulation per protocol -Lasix IV as needed to prevent pulmonary edema GIRISH, likely ATN -Follow BMP daily, avoid nephrotoxins -Consulted nephrology, follow recommendations -Renal function continues to decline, started on hemodialysis since 06/22/20 hypokalemia, repleted Supraventricular tachycardia/paroxysmal atrial fibrillation -likely due to severe sepsis -Patient currently on pressors and IV amiodarone drip for rate control if needed -Consulted cardiology, echo ordered currently pending -Placed on heparin drip Elevated LFT, due to shock liver from severe sepsis and COVID-19 infection -Continue to trend Morbid obesity, -Associated with poor outcome with Covid infection -need counseling for diet and exercise and healthy lifestyles once clinically stable as outpatient DVT prophylaxis, per Covid protocol Full CODE STATUS Poor prognosis The high probability of a clinically significant, sudden or life threatening deterioration of the [cvs, ANTHROPOLOGICAL LINGUIST, 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 The aggregate critical care time was [42] minutes. This time is in addition to time spent performing reported procedures but includes the following: [x] Data Review and interpretation [x] Patient assessment and monitoring of vital signs [x] Documentation [x] Medication orders and management daily course: 06/18: Patient got intubated overnight. Patient was placed on BiPAP to maintain oxygenation with 100% FiO2 but apparently he found to take off his argueta which made his oxygen saturation go down at 60s/50s and patient was found altered mental status. Code met was called immediately. Patient was transferred to ICU and intubated, patient currently on 2 pressors, intubated with 100% FiO2, renal function noted to be decline, nephrology consulted. Discussed with [facility] physician Dr. Thompson and requested call back on Saturday. Poor prognosis, continue to monitor with aggressive supportive care. Also called family/ to update clinical status. 06/19: Repeat COVID test was positive. cont cefepime, remdesivir per ID recommendation. follow inflammatory markers, cbc, bmp. placed on heparin drip for atrial fib 06/20: Remains on mechanical ventilation, on 2 pressors, on heparin drip. discussed with and daughter by phone. Renal function declining. cont supportive care for now. 06/21: Renal function cont to decline, urine outpt sig decreased. started on lasix 80mg BID, plan to follow urine output, if no improvement patient need to start on HD. called and daughter today. updated all clinical details 06/22: Renal function continues to decline with uremia and hyperkalemia. Will need to proceed with hemodialysis. Nephrology discussed with the family and they agrees for the hemodialysis. Patient remains on pressor support and mechanical ventilation. Vas-Cath placed today by vascular started on hemodialysis today. 06/23: 2nd round of HD today, remains on 2 pressors. per RN not tolerating TF, has no record of BM since 06/18. start on stool softner. follow cbc/bmp. updated family( and daughter) by phone -all question answered to best of my knowledge and to their satisfaction. Patient remains critically ill with a very poor prognosis. 06/24: Continue supportive care, Very poor prognosis, Senior Medical Director to discuss with family in am due to the futility of the condition. 06/25/2020 continue supportive care very poor prognosis 06/26/2020 continue supportive care very poor prognosis family updated 06/27/2020 continue supportive care and weaning if possible 06/28/2020 continue supportive care, talk with at length 06/29: Resumed care. K level persistently high. give one dose of bicarbonate, plan for HD today, recheck k after HD. updated family by phone 06/30: updated family by phone. Patient remains on amiodarone drip and vasopressin. Getting HD at the bedside. Tolerating tube feeding at low rate. 07/01: Hb dropped to 6.4 today, transfuse one unit PRBC. patient is off pressor today, remains on amioderone. cont to monitor Subjective Date of service: 07/01/20 Principal diagnosis: ARF/Septic Shock/COVID-19 PNA, AF with RVR Objective - Constitutional Vitals: Vital Signs - 12hr 07/01/20 07/01/20 07/01/20 05:15 05:30 05:45 Temperature Pulse Rate 77 76 75 Pulse Rate [ From Monitor] Respiratory 25 H 25 H 25 H Rate Blood Pressure 130/54 121/55 134/55 O2 Sat by Pulse 96 96 96 Oximetry O2 Sat by Pulse Oximetry [ Anterior Bilateral Throughout] 07/01/20 07/01/20 07/01/20 06:00 06:15 06:30 Temperature Pulse Rate 77 72 78 Pulse Rate [ From Monitor] Respiratory 25 H 25 H 25 H Rate Blood Pressure 137/56 182/63 173/61 O2 Sat by Pulse 97 93 100 Oximetry O2 Sat by Pulse Oximetry [ Anterior Bilateral Throughout] 07/01/20 07/01/20 07/01/20 06:45 07:00 07:15 Temperature Pulse Rate 79 85 82 Pulse Rate [ From Monitor] Respiratory 26 H 19 18 Rate Blood Pressure 189/55 197/62 168/58 O2 Sat by Pulse 87 87 87 Oximetry O2 Sat by Pulse Oximetry [ Anterior Bilateral Throughout] 07/01/20 07/01/20 07/01/20 07:30 07:45 08:00 Temperature 99.0 F Pulse Rate 85 89 Pulse Rate [ 86 From Monitor] Respiratory 14 25 H Rate Blood Pressure 187/61 176/58 165/51 O2 Sat by Pulse 88 89 86 Oximetry O2 Sat by Pulse Oximetry [ Anterior Bilateral Throughout] 07/01/20 07/01/20 07/01/20 08:15 08:30 08:45 Temperature Pulse Rate 85 89 89 Pulse Rate [ From Monitor] Respiratory 17 25 H 25 H Rate Blood Pressure 160/54 137/52 138/49 O2 Sat by Pulse 90 91 92 Oximetry O2 Sat by Pulse Oximetry [ Anterior Bilateral Throughout] 07/01/20 07/01/20 07/01/20 09:00 09:15 09:30 Temperature Pulse Rate 88 88 87 Pulse Rate [ From Monitor] Respiratory 25 H 25 H 25 H Rate Blood Pressure 129/46 129/50 129/50 O2 Sat by Pulse 94 95 95 Oximetry O2 Sat by Pulse Oximetry [ Anterior Bilateral Throughout] 07/01/20 07/01/20 07/01/20 09:45 10:01 10:15 Temperature Pulse Rate 87 96 H 86 Pulse Rate [ From Monitor] Respiratory 25 H 13 25 H Rate Blood Pressure 139/48 185/58 136/50 O2 Sat by Pulse 96 89 90 Oximetry O2 Sat by Pulse Oximetry [ Anterior Bilateral Throughout] 07/01/20 07/01/20 07/01/20 10:30 10:45 11:00 Temperature Pulse Rate 86 86 85 Pulse Rate [ From Monitor] Respiratory 25 H 25 H 25 H Rate Blood Pressure 133/48 124/49 122/44 O2 Sat by Pulse 93 94 94 Oximetry O2 Sat by Pulse Oximetry [ Anterior Bilateral Throughout] 07/01/20 07/01/20 07/01/20 11:15 11:30 11:45 Temperature Pulse Rate 84 86 85 Pulse Rate [ From Monitor] Respiratory 25 H 25 H 25 H Rate Blood Pressure 133/52 130/46 119/47 O2 Sat by Pulse 95 94 95 Oximetry O2 Sat by Pulse Oximetry [ Anterior Bilateral Throughout] 07/01/20 07/01/20 07/01/20 12:00 12:15 12:30 Temperature Pulse Rate 85 85 80 Pulse Rate [ 85 From Monitor] Respiratory 25 H 26 H 25 H Rate Blood Pressure 128/46 128/47 124/46 O2 Sat by Pulse 95 94 94 Oximetry O2 Sat by Pulse Oximetry [ Anterior Bilateral Throughout] 07/01/20 07/01/20 07/01/20 12:45 13:00 13:15 Temperature 99.0 F Pulse Rate 82 83 84 Pulse Rate [ From Monitor] Respiratory 25 H 25 H 25 H Rate Blood Pressure 122/45 126/46 128/46 O2 Sat by Pulse 95 96 95 Oximetry O2 Sat by Pulse 100 Oximetry [ Anterior Bilateral Throughout] 07/01/20 07/01/20 07/01/20 13:30 13:45 13:57 Temperature 99.0 F Pulse Rate 81 76 73 Pulse Rate [ From Monitor] Respiratory 25 H 25 H 22 Rate Blood Pressure 122/46 123/48 136/52 O2 Sat by Pulse 97 96 98 Oximetry O2 Sat by Pulse Oximetry [ Anterior Bilateral Throughout] 07/01/20 07/01/20 07/01/20 14:00 14:12 14:15 Temperature 98.7 F Pulse Rate 75 86 91 H Pulse Rate [ From Monitor] Respiratory 23 26 H 16 Rate Blood Pressure 136/52 124/59 124/49 O2 Sat by Pulse 97 95 96 Oximetry O2 Sat by Pulse Oximetry [ Anterior Bilateral Throughout] 07/01/20 07/01/20 07/01/20 14:30 14:32 14:33 Temperature 98.1 F Pulse Rate 88 80 81 Pulse Rate [ From Monitor] Respiratory 27 H 22 Rate Blood Pressure 115/47 115/47 115/47 O2 Sat by Pulse 96 96 Oximetry O2 Sat by Pulse Oximetry [ Anterior Bilateral Throughout] 07/01/20 07/01/20 07/01/20 14:45 15:01 15:03 Temperature Pulse Rate 90 84 88 Pulse Rate [ From Monitor] Respiratory 22 25 H Rate Blood Pressure 135/39 145/45 145/45 O2 Sat by Pulse 95 94 Oximetry O2 Sat by Pulse Oximetry [ Anterior Bilateral Throughout] 07/01/20 07/01/20 07/01/20 15:15 15:30 15:31 Temperature Pulse Rate 92 H 89 89 Pulse Rate [ From Monitor] Respiratory 13 24 Rate Blood Pressure 146/44 137/50 137/50 O2 Sat by Pulse 94 100 Oximetry O2 Sat by Pulse Oximetry [ Anterior Bilateral Throughout] 07/01/20 07/01/20 07/01/20 15:45 16:00 16:01 Temperature Pulse Rate 78 90 96 H Pulse Rate [ From Monitor] Respiratory 23 26 H Rate Blood Pressure 122/53 158/52 168/75 O2 Sat by Pulse 100 97 Oximetry O2 Sat by Pulse Oximetry [ Anterior Bilateral Throughout] 07/01/20 07/01/20 07/01/20 16:15 16:30 16:45 Temperature Pulse Rate 85 89 75 Pulse Rate [ From Monitor] Respiratory Rate Blood Pressure 151/48 155/53 165/53 O2 Sat by Pulse Oximetry O2 Sat by Pulse Oximetry [ Anterior Bilateral Throughout] 07/01/20 16:54 Temperature 98.5 F Pulse Rate 77 Pulse Rate [ From Monitor] Respiratory 25 H Rate Blood Pressure 162/52 O2 Sat by Pulse Oximetry O2 Sat by Pulse 100 Oximetry [ Anterior Bilateral Throughout] - Labs CBC & Chem 7: 07/02/20 06:00 07/01/20 06:00 Labs: Abnormal lab results 07/01/20 07/01/20 07/01/20 Range/Units 03:19 06:00 06:00 WBC 16.7 H (4.5-11.0) K/mm3 RBC 2.16 L (3.65-5.03) M/mm3 Hgb 6.4 L (11.8-15.2) gm/dl Hct 19.2 L* (35.5-45.6) % ABG pH 7.461 H (7.320-7.450) POC ABG pO2 77.2 L (83-108) mmHg ABG Hemoglobin 6.9 L (12.0-17.5) ABG Sodium 128.5 L (136.0-145.0) mmol/L ABG Chloride 97.0 L (98-107) mmol/L Sodium 136 L (137-145) mmol/L Chloride 95.8 L (98-107) mmol/L BUN 72 H (9-20) mg/dL Creatinine 4.3 H (0.8-1.3) mg/dL Calcium 6.7 L (8.4-10.2) mg/dL Triglycerides 250 H (2-149) mg/dL Arterial Blood Ionized Calcium 3.7 L (4.6-5.3) mg/dL Crossmatch 07/01/20 Range/Units 11:04 WBC (4.5-11.0) K/mm3 RBC (3.65-5.03) M/mm3 Hgb (11.8-15.2) gm/dl Hct (35.5-45.6) % ABG pH (7.320-7.450) POC ABG pO2 (83-108) mmHg ABG Hemoglobin (12.0-17.5) ABG Sodium (136.0-145.0) mmol/L ABG Chloride (98-107) mmol/L Sodium (137-145) mmol/L Chloride (98-107) mmol/L BUN (9-20) mg/dL Creatinine (0.8-1.3) mg/dL Calcium (8.4-10.2) mg/dL Triglycerides (2-149) mg/dL Arterial Blood Ionized Calcium (4.6-5.3) mg/dL Crossmatch See Detail HEART Score - HEART Score Troponin: Troponin T < 0.010 ng/mL (0.00-0.029) 06/17/20 12:33
[2020-07-01] MEDS: AMIODARONE 900 MG in DEXTROSE 5% IN WATER 482 ML IV SCH (18:29)
[2020-07-02] MEDS: fentaNYL DRIP Premix 2,000 MCG/100 ML BAG IV SCH ×4 (00:47→19:57)
[2020-07-02] MEDS: INSULIN REGULAR, HUMAN 100 UNITS/1 ML SUB-Q SCH ×3 (05:48→18:39)
[2020-07-02] MEDS: METOCLOPRAMIDE 10 MG/2 ML INJ IV SCH ×3 (05:56→20:46)
[2020-07-02 06:21] LABS: Hematocrit 21.8 % (35.5-45.6); Hemoglobin 7.4 gm/dl (11.8-15.2); Mean Corpuscular HGB Conc 34 % (32-34); Mean Corpuscular Volume 88 fl (84-94); Platelet Count 195 K/mm3 (140-440); Red Blood Count 2.47 M/mm3 (3.65-5.03); Red Cell Distribution Width 15.1 % (13.2-15.2)
[2020-07-02] MEDS: ASCORBIC ACID 250 MG TAB PO SCH ×2 (10:07→21:01)
[2020-07-02] MEDS: QUEtiapine 200 MG TAB PO SCH ×2 (10:07→21:01)
[2020-07-02] MEDS: FAMOTIDINE 20 MG/2 ML INJ IV SCH (10:07)
[2020-07-02] MEDS: DOCUSATE SODIUM 100 MG/10 ML ORAL LIQD FEEDTUBE SCH ×2 (10:07→21:01)
[2020-07-02] MEDS: CHOLECALCIFEROL (VIT D3) 1000 UNIT (25 mcg) TAB PO SCH (10:08)
[2020-07-02] MEDS: POLYETHYLENE GLYCOL 3350 17 GM POWDER PO SCH (10:08)
--- NOTE | 2020-07-02 10:17 | Progress Note ---
Assessment and Plan 60-year-old male respiratory failure on the ventilator has atrial fibrillation off of pressors try to be sedated with propofol. Will start Cardizem 30 mg via NG tube every 6 and titrate up as blood pressure allows. Is on IV amiodarone which will wean off by the a.m. Not on oral anticoagulation secondary to anemia is on renal failure getting dialysis - Patient Problems (1) Anemia Current Visit: Yes Status: Acute (2) Acute renal failure Current Visit: Yes Status: Acute Qualifiers: Acute renal failure type: with acute tubular necrosis Qualified Code(s): N17.0 - Acute kidney failure with tubular necrosis (3) Acute respiratory failure with hypoxia Current Visit: Yes Status: Acute (4) Atrial fibrillation with rapid ventricular response Current Visit: Yes Status: Acute (5) COVID-19 Current Visit: Yes Status: Acute (6) Elevated LFTs Current Visit: Yes Status: Acute (7) Hyperkalemia Current Visit: Yes Status: Acute (8) Pneumonia due to COVID-19 virus Current Visit: Yes Status: Acute (9) Sepsis Current Visit: Yes Status: Acute Qualifiers: Severe sepsis acute organ dysfunction type: acute respiratory failure Severe sepsis shock status: with septic shock Subjective Date of service: 07/02/20 Principal diagnosis: ARF/Septic Shock/COVID-19 PNA, AF with RVR Interval history: on vent but moving Objective Vital Signs Temp Pulse Pulse Resp BP Pulse Ox Pulse Ox 07/02/20 08:45 127 H 31 H 163/72 94 07/02/20 08:31 118 H 23 167/65 95 07/02/20 08:15 126 H 25 H 166/70 94 07/02/20 08:05 135 H 163/92 93 07/02/20 08:00 98.9 F 145 H 30 H 108/54 94 07/02/20 07:45 123 H 25 H 112/83 93 07/02/20 07:31 126 H 18 112/83 97 07/02/20 07:15 101 H 25 H 119/49 98 07/02/20 07:00 102 H 25 H 114/49 98 07/02/20 06:45 116 H 25 H 111/52 98 07/02/20 06:30 120 H 25 H 108/54 96 07/02/20 06:15 123 H 28 H 117/60 96 07/02/20 06:00 106 H 25 H 109/56 97 07/02/20 05:45 114 H 25 H 115/56 96 07/02/20 05:30 117 H 25 H 121/51 96 07/02/20 05:15 104 H 25 H 114/53 96 07/02/20 05:00 115 H 25 H 114/57 96 07/02/20 04:45 133 H 26 H 113/64 96 07/02/20 04:32 123 H 132/57 95 07/02/20 04:30 118 H 25 H 132/57 95 07/02/20 04:28 128 H 07/02/20 04:15 122 H 21 133/64 92 07/02/20 04:01 131 H 20 128/74 92 07/02/20 03:45 99.5 F 115 H 25 H 144/67 94 07/02/20 03:30 133 H 25 H 135/63 94 07/02/20 03:15 124 H 26 H 144/72 95 07/02/20 03:00 111 H 25 H 145/63 94 07/02/20 02:45 114 H 25 H 131/57 93 07/02/20 02:30 106 H 25 H 140/58 94 07/02/20 02:15 94 H 26 H 129/51 94 07/02/20 02:00 95 H 25 H 140/45 95 07/02/20 01:45 102 H 26 H 164/66 95 07/02/20 01:30 92 H 28 H 158/56 95 07/02/20 01:15 90 25 H 160/55 95 07/02/20 01:00 98 H 21 144/65 95 07/02/20 00:47 95 H 159/54 94 07/02/20 00:45 88 25 H 159/54 96 07/02/20 00:30 96 H 25 H 145/63 94 07/02/20 00:15 92 H 27 H 159/56 94 07/02/20 00:03 91 H 07/02/20 00:01 86 25 H 162/57 93 07/01/20 23:59 99.5 F 07/01/20 23:45 85 25 H 145/66 97 07/01/20 23:30 88 25 H 134/57 100 07/01/20 23:15 88 25 H 131/50 99 07/01/20 23:00 89 25 H 126/50 99 07/01/20 22:45 89 25 H 132/50 99 07/01/20 22:30 85 25 H 135/55 100 07/01/20 22:15 87 25 H 130/51 99 07/01/20 22:00 88 25 H 131/52 99 07/01/20 21:45 88 25 H 132/53 99 07/01/20 21:30 88 25 H 134/53 99 07/01/20 21:15 87 25 H 126/48 99 07/01/20 21:00 87 25 H 137/49 99 07/01/20 20:45 87 25 H 153/55 99 07/01/20 20:35 92 H 154/54 99 07/01/20 20:30 82 25 H 154/54 99 07/01/20 20:15 84 25 H 140/53 98 07/01/20 20:00 98.6 F 84 25 H 124/53 99 07/01/20 19:56 81 07/01/20 19:45 81 25 H 144/52 99 07/01/20 19:30 81 23 136/53 99 07/01/20 19:15 83 25 H 144/52 99 07/01/20 19:09 83 25 H 143/52 99 07/01/20 19:00 83 25 H 143/52 99 07/01/20 18:45 86 25 H 143/54 99 07/01/20 18:30 83 25 H 139/54 99 07/01/20 18:15 85 25 H 147/54 99 07/01/20 18:00 84 25 H 148/56 98 07/01/20 17:45 81 25 H 142/52 96 07/01/20 17:30 84 27 H 149/60 93 07/01/20 17:15 80 17 149/60 99 07/01/20 17:03 81 151/59 99 07/01/20 17:00 79 25 H 151/59 98 07/01/20 16:54 98.5 F 77 25 H 162/52 100 07/01/20 16:45 81 25 H 162/52 100 07/01/20 16:31 86 23 155/53 99 07/01/20 16:30 89 155/53 07/01/20 16:15 86 26 H 151/48 100 07/01/20 16:01 96 H 26 H 168/75 97 07/01/20 16:00 98.5 F 90 96 H 26 H 158/52 97 07/01/20 15:45 78 23 122/53 100 07/01/20 15:31 89 24 137/50 100 07/01/20 15:30 89 137/50 07/01/20 15:15 92 H 13 146/44 94 07/01/20 15:03 88 145/45 07/01/20 15:01 84 25 H 145/45 94 07/01/20 14:45 90 22 135/39 95 07/01/20 14:33 81 115/47 07/01/20 14:32 98.1 F 80 22 115/47 96 07/01/20 14:30 88 27 H 115/47 96 07/01/20 14:15 91 H 16 124/49 96 07/01/20 14:12 98.7 F 86 26 H 124/59 95 07/01/20 14:00 75 23 136/52 97 07/01/20 13:57 99.0 F 73 22 136/52 98 07/01/20 13:45 76 25 H 123/48 96 07/01/20 13:30 81 25 H 122/46 97 07/01/20 13:15 84 25 H 128/46 95 07/01/20 13:00 99.0 F 83 25 H 126/46 96 100 07/01/20 12:55 82 126/46 95 07/01/20 12:45 82 25 H 122/45 95 07/01/20 12:30 80 25 H 124/46 94 07/01/20 12:15 85 26 H 128/47 94 07/01/20 12:00 85 85 25 H 128/46 95 07/01/20 11:45 85 25 H 119/47 95 07/01/20 11:30 86 25 H 130/46 94 07/01/20 11:15 84 25 H 133/52 95 07/01/20 11:00 85 25 H 122/44 94 07/01/20 10:45 86 25 H 124/49 94 07/01/20 10:30 86 25 H 133/48 93 - Physical Examination General: Other (intubated, lethargic) Neck: Positive: neck supple Cardiac: Positive: Irregularly Regular Lungs: Positive: Decreased Breath Sounds Neuro: Positive: Other (intubated, lethargic) Abdomen: Positive: Soft Skin: Negative: Rash, Wound Extremities: Present: upper extr. pulses, lower extr. pulses - Labs and Meds CBC 07/02/20 Range/Units 06:00 WBC 14.6 H (4.5-11.0) K/mm3 RBC 2.47 L (3.65-5.03) M/mm3 Hgb 7.4 L (11.8-15.2) gm/dl Hct 21.8 L (35.5-45.6) % Plt Count 195 (140-440) K/mm3 - Imaging and Cardiology EKG: report reviewed, image reviewed Echo: report reviewed (gail lv function ef55-60%) - Telemetry EKG Rhythm: Atrial Fibrillation (120-130's) - EKG Sinus rhythms and dysrhythmias: sinus tachycardia - Allied health notes Allied health notes reviewed: nursing
[2020-07-02] MEDS: dilTIAZem 30 MG TAB PO SCH ×3 (11:23→23:02)
[2020-07-02] MEDS: ZINC SULFATE 220 MG CAP PO SCH ×2 (11:23→21:01)
[2020-07-02 12:08] LABS: Calcium 7.2 mg/dL (8.4-10.2)
[2020-07-02 12:10] LABS: Albumin 1.9 g/dL (3.9-5); Bilirubin,Direct 0.7 mg/dL (0-0.2)
--- NOTE | 2020-07-02 12:16 | Progress Note ---
Assessment and Plan Acute hypoxemic respiratory failure due to COVID-19 Severe COVID infection Severe Sepsis with shock Bilateral pneumonia Acute kidney injury (GIRISH) with acute tubular necrosis (ATN) Elevated liver enzymes Obesity - repeat CXR re: worsening hypoxemia - received 1 unit PRBC's - reduced set rate to 12/min - keep peep at 8 - wean vasopressors for target MAP > 65 mmHg (now off Levophed today but BP's soft) - HD/UF per nephrology prescription - continue daily SAT's & SBT's as tolerated - continue care as below otherwise; - continue tube feeds and advance to goal rate as tolerated - continue HD/UF per nephrology team for toxin and volume clearance - continue bowel regimen - rate control per cardiology team for afib RVR - Continue to wean supplemental oxygen for O2 sats >92% - Monitor blood pressure closely while optimizing sedation,wean vasopressor support for MAP > 65 mmHg - Critical care prone positioning - VAP bundle addressed, aspiration precautions HOB >40 - continue lung protective strategies, permissive hypercapnic acceptable. - continue bronchodilators with pulmonary hygiene per RT - wean per pulmonary driven protocols otherwise - accuchecks with glycemic control per SSI (While critically ill target blood glucose of 140-180 mg/dL; avoid hypoglycemia) - sedation prn for target RASS -1 to -2 - continue enteral nutritional support at goal rate as tolerated - s/p antibiotics per ID recommendations - Monitor liver function test ,avoid hepatotoxic agents - azotemia per nephrology rec's - Avoid nephrotoxins, renally dose all medications, conservative fluid management - continue to avoid benzodiazepines, reduce the possibility of delirium, - prn analgesia per CPOT score - Maintenance of sleep-wake cycle, avoid delirium - Stress ulcer prophylaxis, Famotidine - PT/OT/ROM exercises - Mobility protocols for pressure ulcer prevention - CXR, ABG in am - CBC, CMP in am - Supportive transfusions to keep HgB >7g/dL - Monitor hemodynamics closely - continue other care per attending / other consultants COVID SPECIFIC INTERVENTIONS - continue steroids: Dexamethasone - continue with Remdesivir - monitor inflammatory markers - ferritin, D-dimer, CRP, LDH per facility protocol - continue anticoagulation per System Protocol based on d-dimer - continue contact and airborne isolation CONDITION: CRITICAL PROGNOSIS: GUARDED CODE STATUS: FULL CODE The high probability of a clinically significant, sudden or life-threatening deterioration of the [respiratory, cardiovascular, hematologic & neurologic] system(s) required my full and direct attention, intervention and personal management. The aggregate critical care time was [32] minutes without overlap. Time includes spent on; [x] Data Review and interpretation [x] Patient assessment and monitoring of vital signs [x] Documentation [x] Medication orders and management He was evaluated in the context of the global COVID-19 pandemic, which necessitated consideration that the patient might be at risk for infection with the virus that causes COVID-19. Institutional protocols and algorithms that pertain to the evaluation of patients at risk for COVID-19 are in a state of rapid change based on information released by regulatory bodies including the CDC and federal and state organizations. These policies and algorithms were followed during the patient's care in the ICU Please note that these policies, procedures and recommendations changed on a rapid basis. Subjective Date of service: 07/02/20 Principal diagnosis: ARF/Septic Shock/COVID-19 PNA, AF with RVR Interval history: Patient is seen today for: Ac hypoxemic respiratory failure; COVID-19; Severe Sepsis with shock; Zackery. pneumonia; GIRISH; Elevated liver enzymes; Obesity Seen and examined at bedside; 24hour events reviewed; nursing and respiratory care staff consulted; no adverse overnight events reported to me; resting in bed; remains on MVS; responds to name calling but not following prompts; FiO2 increased to 50% overnight; oliguric; no emesis or overt aspiration Objective Vital Signs - 12hr 07/02/20 07/02/20 07/02/20 00:30 00:45 00:47 Temperature Pulse Rate 96 H 88 95 H Respiratory 25 H 25 H Rate Blood Pressure 145/63 159/54 159/54 O2 Sat by Pulse 94 96 94 Oximetry 07/02/20 07/02/20 07/02/20 01:00 01:15 01:30 Temperature Pulse Rate 98 H 90 92 H Respiratory 21 25 H 28 H Rate Blood Pressure 144/65 160/55 158/56 O2 Sat by Pulse 95 95 95 Oximetry 07/02/20 07/02/20 07/02/20 01:45 02:00 02:15 Temperature Pulse Rate 102 H 95 H 94 H Respiratory 26 H 25 H 26 H Rate Blood Pressure 164/66 140/45 129/51 O2 Sat by Pulse 95 95 94 Oximetry 07/02/20 07/02/20 07/02/20 02:30 02:45 03:00 Temperature Pulse Rate 106 H 114 H 111 H Respiratory 25 H 25 H 25 H Rate Blood Pressure 140/58 131/57 145/63 O2 Sat by Pulse 94 93 94 Oximetry 07/02/20 07/02/20 07/02/20 03:15 03:30 03:45 Temperature 99.5 F Pulse Rate 124 H 133 H 115 H Respiratory 26 H 25 H 25 H Rate Blood Pressure 144/72 135/63 144/67 O2 Sat by Pulse 95 94 94 Oximetry 07/02/20 07/02/20 07/02/20 04:01 04:15 04:28 Temperature Pulse Rate 131 H 122 H 128 H Respiratory 20 21 Rate Blood Pressure 128/74 133/64 O2 Sat by Pulse 92 92 Oximetry 07/02/20 07/02/20 07/02/20 04:30 04:32 04:45 Temperature Pulse Rate 118 H 123 H 133 H Respiratory 25 H 26 H Rate Blood Pressure 132/57 132/57 113/64 O2 Sat by Pulse 95 95 96 Oximetry 07/02/20 07/02/20 07/02/20 05:00 05:15 05:30 Temperature Pulse Rate 115 H 104 H 117 H Respiratory 25 H 25 H 25 H Rate Blood Pressure 114/57 114/53 121/51 O2 Sat by Pulse 96 96 96 Oximetry 07/02/20 07/02/20 07/02/20 05:45 06:00 06:15 Temperature Pulse Rate 114 H 106 H 123 H Respiratory 25 H 25 H 28 H Rate Blood Pressure 115/56 109/56 117/60 O2 Sat by Pulse 96 97 96 Oximetry 07/02/20 07/02/20 07/02/20 06:30 06:45 07:00 Temperature Pulse Rate 120 H 116 H 102 H Respiratory 25 H 25 H 25 H Rate Blood Pressure 108/54 111/52 114/49 O2 Sat by Pulse 96 98 98 Oximetry 07/02/20 07/02/20 07/02/20 07:15 07:31 07:45 Temperature Pulse Rate 101 H 126 H 123 H Respiratory 25 H 18 25 H Rate Blood Pressure 119/49 112/83 112/83 O2 Sat by Pulse 98 97 93 Oximetry 07/02/20 07/02/20 07/02/20 08:00 08:05 08:15 Temperature 98.9 F Pulse Rate 145 H 135 H 126 H Respiratory 30 H 25 H Rate Blood Pressure 108/54 163/92 166/70 O2 Sat by Pulse 94 93 94 Oximetry 07/02/20 07/02/20 07/02/20 08:31 08:45 09:01 Temperature Pulse Rate 118 H 127 H 135 H Respiratory 23 31 H 26 H Rate Blood Pressure 167/65 163/72 144/62 O2 Sat by Pulse 95 94 95 Oximetry 07/02/20 07/02/20 07/02/20 09:15 09:31 09:45 Temperature Pulse Rate 124 H 132 H 122 H Respiratory 28 H 24 25 H Rate Blood Pressure 159/57 147/58 157/66 O2 Sat by Pulse 94 95 95 Oximetry 07/02/20 07/02/20 07/02/20 10:01 10:15 10:31 Temperature Pulse Rate 123 H 128 H 135 H Respiratory 26 H 16 30 H Rate Blood Pressure 161/71 146/71 114/61 O2 Sat by Pulse 96 96 96 Oximetry 07/02/20 07/02/20 07/02/20 10:45 11:00 11:15 Temperature Pulse Rate 115 H 102 H 118 H Respiratory 25 H 25 H 25 H Rate Blood Pressure 129/47 129/47 112/55 O2 Sat by Pulse 96 96 97 Oximetry 07/02/20 07/02/20 07/02/20 11:23 11:30 12:00 Temperature 100.0 F H Pulse Rate 110 H 121 H Respiratory 25 H Rate Blood Pressure 112/55 126/56 O2 Sat by Pulse 97 Oximetry Constitutional: appears uncomfortable, other (morbidly obese, atraumatic, normocephalic, mild resp distress, orally intuabted) Eyes: non-icteric ENT: oropharynx moist, other (ETT 24 cm TROY) Neck: supple, no lymphadenopathy, other (Large , short neck) Effort: mildly labored Ascultation: Bilateral: diminished breath sounds, rhonchi (scant) Percussion: Bilateral: not dull Cardiovascular: irregular rhythm, other (S1,S2) Gastrointestinal: normoactive bowel sounds, non-distended (protuberant), other (OG Tube) Integumentary: rash, other (Femoral CVC, Newell catheter) Extremities: no edema, pink and warm, pulses normal, no ischemia or petechiae, edema (trace to 1+) Neurologic: non-focal exam (grossly), pupils equal and round, other (unable to assess, sedated) Psychiatric: other (unable to assess, sedated) CBC and BMP: 07/02/20 06:00 07/02/20 11:33 ABG, PT/INR, D-dimer: ABG ABG pH 7.457 (7.320-7.450) H 07/02/20 04:44 POC ABG pCO2 35.8 mmHg (32.0-48.0) 07/02/20 04:44 POC ABG pO2 79.4 mmHg (83-108) L 07/02/20 04:44 POC ABG HCO3 24.7 07/02/20 04:44 PT/INR, D-dimer PT 17.4 Sec. (12.2-14.9) H 06/26/20 05:47 INR 1.44 (0.87-1.13) H 06/26/20 05:47 D-Dimer 939.89 ng/mlDDU (0-234) H 06/17/20 14:48 Abnormal lab findings: Abnormal Labs 06/17/20 06/17/20 06/17/20 12:33 12:33 12:33 WBC 19.5 H RBC 5.18 H Hgb 15.5 H Hct RDW Lymph % (Auto) 3.8 L Lymph # (Auto) 0.7 L Walsh # (Auto) Seg Neuts % (Manual) 99.0 H Lymphocytes % (Manual) 1.0 L Nucleated RBC % Seg Neutrophils # 18.2 H Seg Neutrophils # Man 19.3 H Lymphocytes # (Manual) 0.2 L Monocytes # (Manual) PT 16.5 H INR 1.33 H APTT D-Dimer 1025.04 H Heparin Anti-Xa Level ABG pH POC ABG pCO2 POC ABG pO2 ABG Hemoglobin ABG Oxyhemoglobin ABG Sodium ABG Potassium ABG Chloride ABG Glucose Carboxyhemoglobin Sodium 130 L Potassium 3.4 L Chloride 95.0 L Carbon Dioxide BUN 21 H Creatinine Glucose 137 H POC Glucose Lactic Acid Calcium 7.9 L Phosphorus Magnesium Ferritin AST 84 H ALT 67 H Lactate Dehydrogenase 437 H Total Creatine Kinase 310 H C-Reactive Protein 27.90 H Total Protein Albumin 2.9 L Triglycerides Arterial Blood Glucose Arterial Blood Ionized Calcium Urine Creatinine Urine Chloride Vancomycin Trough Coronavirus (PCR) Crossmatch 0206/17/20 06/17/20 12:33 12:33 14:48 WBC RBC Hgb Hct RDW Lymph % (Auto) Lymph # (Auto) Walsh # (Auto) Seg Neuts % (Manual) Lymphocytes % (Manual) Nucleated RBC % Seg Neutrophils # Seg Neutrophils # Man Lymphocytes # (Manual) Monocytes # (Manual) PT INR APTT D-Dimer Heparin Anti-Xa Level ABG pH POC ABG pCO2 POC ABG pO2 ABG Hemoglobin ABG Oxyhemoglobin ABG Sodium ABG Potassium ABG Chloride ABG Glucose Carboxyhemoglobin Sodium Potassium Chloride Carbon Dioxide BUN Creatinine Glucose POC Glucose Lactic Acid 2.50 H* 2.20 H* Calcium Phosphorus Magnesium Ferritin 2297.0 H AST ALT Lactate Dehydrogenase Total Creatine Kinase C-Reactive Protein Total Protein Albumin Triglycerides Arterial Blood Glucose Arterial Blood Ionized Calcium Urine Creatinine Urine Chloride Vancomycin Trough Coronavirus (PCR) Crossmatch 06/17/20 06/17/20 06/17/20 14:48 14:48 14:48 WBC RBC Hgb Hct RDW Lymph % (Auto) Lymph # (Auto) Walsh # (Auto) Seg Neuts % (Manual) Lymphocytes % (Manual) Nucleated RBC % Seg Neutrophils # Seg Neutrophils # Man Lymphocytes # (Manual) Monocytes # (Manual) PT INR APTT D-Dimer 939.89 H Heparin Anti-Xa Level ABG pH POC ABG pCO2 POC ABG pO2 ABG Hemoglobin ABG Oxyhemoglobin ABG Sodium ABG Potassium ABG Chloride ABG Glucose Carboxyhemoglobin Sodium Potassium Chloride Carbon Dioxide BUN Creatinine Glucose 141 H POC Glucose Lactic Acid Calcium Phosphorus Magnesium Ferritin > 2000.0 H AST ALT Lactate Dehydrogenase 503 H Total Creatine Kinase C-Reactive Protein 24.70 H Total Protein Albumin Triglycerides Arterial Blood Glucose Arterial Blood Ionized Calcium Urine Creatinine Urine Chloride Vancomycin Trough Coronavirus (PCR) Crossmatch 06/17/20 06/17/20 06/17/20 16:54 19:39 23:43 WBC RBC Hgb Hct RDW Lymph % (Auto) Lymph # (Auto) Walsh # (Auto) Seg Neuts % (Manual) Lymphocytes % (Manual) Nucleated RBC % Seg Neutrophils # Seg Neutrophils # Man Lymphocytes # (Manual) Monocytes # (Manual) PT INR APTT D-Dimer Heparin Anti-Xa Level ABG pH 7.571 H POC ABG pCO2 24.3 L POC ABG pO2 41.6 L ABG Hemoglobin ABG Oxyhemoglobin 84.0 L ABG Sodium 131.0 L ABG Potassium ABG Chloride ABG Glucose 163 H Carboxyhemoglobin Sodium Potassium Chloride Carbon Dioxide BUN Creatinine Glucose POC Glucose 185 H Lactic Acid 2.10 H* Calcium Phosphorus Magnesium Ferritin AST ALT Lactate Dehydrogenase Total Creatine Kinase C-Reactive Protein Total Protein Albumin Triglycerides Arterial Blood Glucose 163 H Arterial Blood Ionized Calcium 4.4 L Urine Creatinine Urine Chloride Vancomycin Trough Coronavirus (PCR) Crossmatch 06/18/20 06/18/20 06/18/20 00:17 00:23 03:55 WBC RBC Hgb Hct RDW Lymph % (Auto) Lymph # (Auto) Walsh # (Auto) Seg Neuts % (Manual) Lymphocytes % (Manual) Nucleated RBC % Seg Neutrophils # Seg Neutrophils # Man Lymphocytes # (Manual) Monocytes # (Manual) PT INR APTT D-Dimer Heparin Anti-Xa Level ABG pH POC ABG pCO2 POC ABG pO2 56.5 L 48.3 L ABG Hemoglobin ABG Oxyhemoglobin 86.3 L 81.7 L ABG Sodium 132.9 L 131.0 L ABG Potassium ABG Chloride ABG Glucose 189 H 161 H Carboxyhemoglobin 0.4 L Sodium Potassium Chloride Carbon Dioxide BUN Creatinine Glucose POC Glucose Lactic Acid 3.80 H* Calcium Phosphorus Magnesium Ferritin AST ALT Lactate Dehydrogenase Total Creatine Kinase C-Reactive Protein Total Protein Albumin Triglycerides Arterial Blood Glucose 189 H 161 H Arterial Blood Ionized Calcium 4.3 L 4.2 L Urine Creatinine Urine Chloride Vancomycin Trough Coronavirus (PCR) Crossmatch 06/18/20 06/18/20 06/18/20 05:39 05:39 05:39 WBC 26.2 H RBC Hgb Hct RDW Lymph % (Auto) Lymph # (Auto) Walsh # (Auto) Seg Neuts % (Manual) 90.0 H Lymphocytes % (Manual) 5.0 L Nucleated RBC % Seg Neutrophils # Seg Neutrophils # Man 23.6 H Lymphocytes # (Manual) Monocytes # (Manual) 1.3 H PT INR APTT D-Dimer Heparin Anti-Xa Level ABG pH POC ABG pCO2 POC ABG pO2 ABG Hemoglobin ABG Oxyhemoglobin ABG Sodium ABG Potassium ABG Chloride ABG Glucose Carboxyhemoglobin Sodium 135 L Potassium Chloride 97.5 L Carbon Dioxide 21 L BUN 39 H Creatinine 1.7 H D Glucose 168 H POC Glucose Lactic Acid 3.40 H* Calcium 7.2 L Phosphorus Magnesium Ferritin AST ALT Lactate Dehydrogenase Total Creatine Kinase C-Reactive Protein Total Protein Albumin Triglycerides Arterial Blood Glucose Arterial Blood Ionized Calcium Urine Creatinine Urine Chloride Vancomycin Trough Coronavirus (PCR) Crossmatch 06/18/20 06/18/20 06/18/20 07:24 09:00 10:10 WBC RBC Hgb Hct RDW Lymph % (Auto) Lymph # (Auto) Walsh # (Auto) Seg Neuts % (Manual) Lymphocytes % (Manual) Nucleated RBC % Seg Neutrophils # Seg Neutrophils # Man Lymphocytes # (Manual) Monocytes # (Manual) PT INR APTT D-Dimer Heparin Anti-Xa Level ABG pH POC ABG pCO2 POC ABG pO2 ABG Hemoglobin ABG Oxyhemoglobin ABG Sodium ABG Potassium ABG Chloride ABG Glucose Carboxyhemoglobin Sodium Potassium Chloride Carbon Dioxide BUN Creatinine Glucose POC Glucose Lactic Acid 2.90 H* 3.20 H* Calcium Phosphorus Magnesium Ferritin AST ALT Lactate Dehydrogenase Total Creatine Kinase C-Reactive Protein Total Protein Albumin Triglycerides Arterial Blood Glucose Arterial Blood Ionized Calcium Urine Creatinine Urine Chloride Vancomycin Trough Coronavirus (PCR) Positive A Crossmatch 06/18/20 06/18/20 06/18/20 11:58 14:43 15:00 WBC RBC Hgb Hct RDW Lymph % (Auto) Lymph # (Auto) Walsh # (Auto) Seg Neuts % (Manual) Lymphocytes % (Manual) Nucleated RBC % Seg Neutrophils # Seg Neutrophils # Man Lymphocytes # (Manual) Monocytes # (Manual) PT INR APTT D-Dimer Heparin Anti-Xa Level ABG pH 7.303 L POC ABG pCO2 POC ABG pO2 82.3 L ABG Hemoglobin ABG Oxyhemoglobin ABG Sodium 135.3 L ABG Potassium ABG Chloride ABG Glucose 215 H Carboxyhemoglobin 0.3 L Sodium Potassium Chloride Carbon Dioxide BUN Creatinine Glucose POC Glucose 209 H Lactic Acid Calcium Phosphorus Magnesium Ferritin AST ALT Lactate Dehydrogenase Total Creatine Kinase C-Reactive Protein Total Protein Albumin Triglycerides Arterial Blood Glucose 215 H Arterial Blood Ionized Calcium 4.2 L Urine Creatinine 192.4 H Urine Chloride 31.1 L Vancomycin Trough Coronavirus (PCR) Crossmatch 06/18/20 06/18/20 06/18/20 17:16 19:44 20:33 WBC RBC Hgb Hct RDW Lymph % (Auto) Lymph # (Auto) Walsh # (Auto) Seg Neuts % (Manual) Lymphocytes % (Manual) Nucleated RBC % Seg Neutrophils # Seg Neutrophils # Man Lymphocytes # (Manual) Monocytes # (Manual) PT INR APTT D-Dimer Heparin Anti-Xa Level ABG pH POC ABG pCO2 POC ABG pO2 ABG Hemoglobin ABG Oxyhemoglobin ABG Sodium ABG Potassium ABG Chloride ABG Glucose Carboxyhemoglobin Sodium Potassium Chloride Carbon Dioxide BUN Creatinine Glucose POC Glucose 182 H Lactic Acid 3.00 H* Calcium Phosphorus Magnesium 2.70 H Ferritin AST ALT Lactate Dehydrogenase Total Creatine Kinase C-Reactive Protein Total Protein Albumin Triglycerides Arterial Blood Glucose Arterial Blood Ionized Calcium Urine Creatinine Urine Chloride Vancomycin Trough Coronavirus (PCR) Crossmatch 06/18/20 06/19/20 06/19/20 23:43 04:00 04:00 WBC 31.6 H RBC Hgb Hct RDW Lymph % (Auto) Lymph # (Auto) Walsh # (Auto) Seg Neuts % (Manual) 98.0 H Lymphocytes % (Manual) 0.5 L Nucleated RBC % Seg Neutrophils # Seg Neutrophils # Man 31.0 H Lymphocytes # (Manual) 0.2 L Monocytes # (Manual) PT INR APTT D-Dimer Heparin Anti-Xa Level ABG pH POC ABG pCO2 POC ABG pO2 ABG Hemoglobin ABG Oxyhemoglobin ABG Sodium ABG Potassium ABG Chloride ABG Glucose Carboxyhemoglobin Sodium Potassium Chloride Carbon Dioxide BUN 56 H Creatinine 1.6 H Glucose 176 H POC Glucose 149 H Lactic Acid Calcium 7.0 L Phosphorus Magnesium Ferritin AST 244 H ALT 159 H Lactate Dehydrogenase Total Creatine Kinase C-Reactive Protein Total Protein 4.9 L D Albumin 2.5 L Triglycerides Arterial Blood Glucose Arterial Blood Ionized Calcium Urine Creatinine Urine Chloride Vancomycin Trough Coronavirus (PCR) Crossmatch 06/19/20 06/19/20 06/19/20 04:00 05:44 11:42 WBC RBC Hgb Hct RDW Lymph % (Auto) Lymph # (Auto) Walsh # (Auto) Seg Neuts % (Manual) Lymphocytes % (Manual) Nucleated RBC % Seg Neutrophils # Seg Neutrophils # Man Lymphocytes # (Manual) Monocytes # (Manual) PT INR APTT D-Dimer Heparin Anti-Xa Level ABG pH 7.265 L POC ABG pCO2 51.8 H POC ABG pO2 65.1 L ABG Hemoglobin ABG Oxyhemoglobin ABG Sodium ABG Potassium ABG Chloride ABG Glucose 184 H Carboxyhemoglobin Sodium Potassium Chloride Carbon Dioxide BUN Creatinine Glucose POC Glucose 156 H 191 H Lactic Acid Calcium Phosphorus Magnesium Ferritin AST ALT Lactate Dehydrogenase Total Creatine Kinase C-Reactive Protein Total Protein Albumin Triglycerides Arterial Blood Glucose 184 H Arterial Blood Ionized Calcium 4.3 L Urine Creatinine Urine Chloride Vancomycin Trough Coronavirus (PCR) Crossmatch 06/19/20 06/19/20 06/19/20 12:30 17:16 18:36 WBC RBC Hgb Hct RDW Lymph % (Auto) Lymph # (Auto) Walsh # (Auto) Seg Neuts % (Manual) Lymphocytes % (Manual) Nucleated RBC % Seg Neutrophils # Seg Neutrophils # Man Lymphocytes # (Manual) Monocytes # (Manual) PT 16.4 H INR 1.32 H APTT D-Dimer Heparin Anti-Xa Level ABG pH 7.088 L POC ABG pCO2 78.1 H POC ABG pO2 208.3 H ABG Hemoglobin ABG Oxyhemoglobin 98.3 H ABG Sodium ABG Potassium 5.0 H ABG Chloride ABG Glucose 182 H Carboxyhemoglobin 0.4 L Sodium Potassium Chloride Carbon Dioxide BUN Creatinine Glucose POC Glucose 154 H Lactic Acid Calcium Phosphorus Magnesium Ferritin AST ALT Lactate Dehydrogenase Total Creatine Kinase C-Reactive Protein Total Protein Albumin Triglycerides Arterial Blood Glucose 182 H Arterial Blood Ionized Calcium 4.3 L Urine Creatinine Urine Chloride Vancomycin Trough Coronavirus (PCR) Crossmatch 06/19/20 06/20/20 06/20/20 23:32 03:00 05:19 WBC RBC Hgb Hct RDW Lymph % (Auto) Lymph # (Auto) Walsh # (Auto) Seg Neuts % (Manual) Lymphocytes % (Manual) Nucleated RBC % Seg Neutrophils # Seg Neutrophils # Man Lymphocytes # (Manual) Monocytes # (Manual) PT INR APTT D-Dimer Heparin Anti-Xa Level 0.77 H ABG pH POC ABG pCO2 POC ABG pO2 ABG Hemoglobin ABG Oxyhemoglobin ABG Sodium ABG Potassium ABG Chloride ABG Glucose Carboxyhemoglobin Sodium Potassium Chloride Carbon Dioxide BUN Creatinine Glucose POC Glucose 201 H 190 H Lactic Acid Calcium Phosphorus Magnesium Ferritin AST ALT Lactate Dehydrogenase Total Creatine Kinase C-Reactive Protein Total Protein Albumin Triglycerides Arterial Blood Glucose Arterial Blood Ionized Calcium Urine Creatinine Urine Chloride Vancomycin Trough Coronavirus (PCR) Crossmatch 06/20/20 06/20/20 06/20/20 08:25 08:25 11:36 WBC RBC Hgb Hct RDW Lymph % (Auto) Lymph # (Auto) Walsh # (Auto) Seg Neuts % (Manual) Lymphocytes % (Manual) Nucleated RBC % Seg Neutrophils # Seg Neutrophils # Man Lymphocytes # (Manual) Monocytes # (Manual) PT INR APTT D-Dimer Heparin Anti-Xa Level ABG pH POC ABG pCO2 POC ABG pO2 ABG Hemoglobin ABG Oxyhemoglobin ABG Sodium ABG Potassium ABG Chloride ABG Glucose Carboxyhemoglobin Sodium 135 L Potassium 5.4 H Chloride 109.2 H Carbon Dioxide 19 L BUN 68 H Creatinine 2.5 H D Glucose 201 H POC Glucose 184 H Lactic Acid Calcium 5.5 L* D Phosphorus Magnesium Ferritin AST 123 H ALT 86 H Lactate Dehydrogenase Total Creatine Kinase C-Reactive Protein Total Protein 4.6 L Albumin 1.5 L Triglycerides Arterial Blood Glucose Arterial Blood Ionized Calcium Urine Creatinine Urine Chloride Vancomycin Trough 22.7 H Coronavirus (PCR) Crossmatch 06/20/20 06/20/20 06/20/20 11:40 17:28 20:00 WBC RBC Hgb Hct RDW Lymph % (Auto) Lymph # (Auto) Walsh # (Auto) Seg Neuts % (Manual) Lymphocytes % (Manual) Nucleated RBC % Seg Neutrophils # Seg Neutrophils # Man Lymphocytes # (Manual) Monocytes # (Manual) PT INR APTT D-Dimer Heparin Anti-Xa Level 0.89 H ABG pH 7.099 L POC ABG pCO2 61.1 H POC ABG pO2 ABG Hemoglobin ABG Oxyhemoglobin ABG Sodium ABG Potassium 5.0 H ABG Chloride 111.0 H ABG Glucose 200 H Carboxyhemoglobin 0.4 L Sodium Potassium Chloride Carbon Dioxide BUN Creatinine Glucose POC Glucose 165 H Lactic Acid Calcium Phosphorus Magnesium Ferritin AST ALT Lactate Dehydrogenase Total Creatine Kinase C-Reactive Protein Total Protein Albumin Triglycerides Arterial Blood Glucose 200 H Arterial Blood Ionized Calcium 4.2 L Urine Creatinine Urine Chloride Vancomycin Trough Coronavirus (PCR) Crossmatch 06/20/20 06/21/20 06/21/20 23:29 05:00 05:20 WBC RBC Hgb Hct RDW Lymph % (Auto) Lymph # (Auto) Walsh # (Auto) Seg Neuts % (Manual) Lymphocytes % (Manual) Nucleated RBC % Seg Neutrophils # Seg Neutrophils # Man Lymphocytes # (Manual) Monocytes # (Manual) PT INR APTT D-Dimer Heparin Anti-Xa Level ABG pH POC ABG pCO2 POC ABG pO2 ABG Hemoglobin ABG Oxyhemoglobin ABG Sodium ABG Potassium ABG Chloride ABG Glucose Carboxyhemoglobin Sodium Potassium Chloride 112.0 H Carbon Dioxide 20 L BUN 92 H Creatinine 3.9 H D Glucose 214 H POC Glucose 145 H 191 H Lactic Acid Calcium 6.5 L D Phosphorus Magnesium Ferritin AST 98 H ALT 84 H Lactate Dehydrogenase Total Creatine Kinase C-Reactive Protein Total Protein 4.6 L Albumin 2.1 L Triglycerides 180 H Arterial Blood Glucose Arterial Blood Ionized Calcium Urine Creatinine Urine Chloride Vancomycin Trough Coronavirus (PCR) Crossmatch 06/21/20 06/21/20 06/21/20 08:56 11:12 12:43 WBC RBC Hgb Hct RDW Lymph % (Auto) Lymph # (Auto) Walsh # (Auto) Seg Neuts % (Manual) Lymphocytes % (Manual) Nucleated RBC % Seg Neutrophils # Seg Neutrophils # Man Lymphocytes # (Manual) Monocytes # (Manual) PT INR APTT D-Dimer Heparin Anti-Xa Level 0.28 L ABG pH 7.184 L POC ABG pCO2 48.3 H POC ABG pO2 172.1 H ABG Hemoglobin ABG Oxyhemoglobin 98.7 H ABG Sodium ABG Potassium 4.9 H ABG Chloride 112.0 H ABG Glucose 196 H Carboxyhemoglobin 0.2 L Sodium Potassium Chloride Carbon Dioxide BUN Creatinine Glucose POC Glucose 177 H Lactic Acid Calcium Phosphorus Magnesium Ferritin AST ALT Lactate Dehydrogenase Total Creatine Kinase C-Reactive Protein Total Protein Albumin Triglycerides Arterial Blood Glucose 196 H Arterial Blood Ionized Calcium 4.1 L Urine Creatinine Urine Chloride Vancomycin Trough Coronavirus (PCR) Crossmatch 06/21/20 06/21/20 06/22/20 16:31 Unknown 00:12 WBC RBC Hgb Hct RDW Lymph % (Auto) Lymph # (Auto) Walsh # (Auto) Seg Neuts % (Manual) Lymphocytes % (Manual) Nucleated RBC % Seg Neutrophils # Seg Neutrophils # Man Lymphocytes # (Manual) Monocytes # (Manual) PT INR APTT D-Dimer Heparin Anti-Xa Level 0.78 H ABG pH POC ABG pCO2 POC ABG pO2 ABG Hemoglobin ABG Oxyhemoglobin ABG Sodium ABG Potassium ABG Chloride ABG Glucose Carboxyhemoglobin Sodium Potassium Chloride Carbon Dioxide BUN Creatinine Glucose POC Glucose 150 H 173 H Lactic Acid Calcium Phosphorus Magnesium Ferritin AST ALT Lactate Dehydrogenase Total Creatine Kinase C-Reactive Protein Total Protein Albumin Triglycerides Arterial Blood Glucose Arterial Blood Ionized Calcium Urine Creatinine Urine Chloride Vancomycin Trough Coronavirus (PCR) Crossmatch 06/22/20 06/22/20 06/22/20 04:00 05:04 05:30 WBC 33.9 H RBC Hgb 11.7 L Hct 35.2 L RDW 15.8 H Lymph % (Auto) Lymph # (Auto) Walsh # (Auto) Seg Neuts % (Manual) 93.0 H Lymphocytes % (Manual) 5.0 L Nucleated RBC % Seg Neutrophils # Seg Neutrophils # Man 31.5 H Lymphocytes # (Manual) Monocytes # (Manual) PT INR APTT D-Dimer Heparin Anti-Xa Level ABG pH 7.169 L POC ABG pCO2 POC ABG pO2 ABG Hemoglobin ABG Oxyhemoglobin ABG Sodium ABG Potassium 5.1 H ABG Chloride 112.0 H ABG Glucose 186 H Carboxyhemoglobin 0.3 L Sodium Potassium Chloride Carbon Dioxide BUN Creatinine Glucose POC Glucose 161 H Lactic Acid Calcium Phosphorus Magnesium Ferritin AST ALT Lactate Dehydrogenase Total Creatine Kinase C-Reactive Protein Total Protein Albumin Triglycerides Arterial Blood Glucose 186 H Arterial Blood Ionized Calcium 4.1 L Urine Creatinine Urine Chloride Vancomycin Trough Coronavirus (PCR) Crossmatch 06/22/20 06/22/20 06/22/20 05:30 11:39 13:27 WBC RBC Hgb Hct RDW Lymph % (Auto) Lymph # (Auto) Walsh # (Auto) Seg Neuts % (Manual) Lymphocytes % (Manual) Nucleated RBC % Seg Neutrophils # Seg Neutrophils # Man Lymphocytes # (Manual) Monocytes # (Manual) PT INR APTT D-Dimer Heparin Anti-Xa Level ABG pH POC ABG pCO2 POC ABG pO2 ABG Hemoglobin ABG Oxyhemoglobin ABG Sodium ABG Potassium ABG Chloride ABG Glucose Carboxyhemoglobin Sodium Potassium 5.7 H Chloride 111.3 H Carbon Dioxide 18 L BUN 112 H Creatinine 5.0 H Glucose 173 H POC Glucose 172 H 176 H Lactic Acid Calcium 6.7 L Phosphorus Magnesium Ferritin AST ALT Lactate Dehydrogenase Total Creatine Kinase C-Reactive Protein Total Protein Albumin Triglycerides Arterial Blood Glucose Arterial Blood Ionized Calcium Urine Creatinine Urine Chloride Vancomycin Trough Coronavirus (PCR) Crossmatch 06/22/20 06/22/20 06/22/20 14:37 17:00 17:40 WBC RBC Hgb Hct RDW Lymph % (Auto) Lymph # (Auto) Walsh # (Auto) Seg Neuts % (Manual) Lymphocytes % (Manual) Nucleated RBC % Seg Neutrophils # Seg Neutrophils # Man Lymphocytes # (Manual) Monocytes # (Manual) PT INR APTT D-Dimer Heparin Anti-Xa Level 1.32 H ABG pH POC ABG pCO2 POC ABG pO2 ABG Hemoglobin ABG Oxyhemoglobin ABG Sodium ABG Potassium ABG Chloride ABG Glucose Carboxyhemoglobin Sodium Potassium Chloride Carbon Dioxide BUN Creatinine Glucose POC Glucose 171 H Lactic Acid Calcium Phosphorus Magnesium Ferritin AST ALT Lactate Dehydrogenase Total Creatine Kinase C-Reactive Protein 5.30 H Total Protein Albumin Triglycerides Arterial Blood Glucose Arterial Blood Ionized Calcium Urine Creatinine Urine Chloride Vancomycin Trough Coronavirus (PCR) Crossmatch 06/22/20 06/23/20 06/23/20 23:36 02:13 02:41 WBC RBC Hgb Hct RDW Lymph % (Auto) Lymph # (Auto) Walsh # (Auto) Seg Neuts % (Manual) Lymphocytes % (Manual) Nucleated RBC % Seg Neutrophils # Seg Neutrophils # Man Lymphocytes # (Manual) Monocytes # (Manual) PT INR APTT D-Dimer Heparin Anti-Xa Level 0.21 L ABG pH 7.318 L POC ABG pCO2 POC ABG pO2 157.5 H ABG Hemoglobin ABG Oxyhemoglobin ABG Sodium 135.6 L ABG Potassium 4.6 H ABG Chloride 110.0 H ABG Glucose 169 H Carboxyhemoglobin Sodium Potassium Chloride Carbon Dioxide BUN Creatinine Glucose POC Glucose 155 H Lactic Acid Calcium Phosphorus Magnesium Ferritin AST ALT Lactate Dehydrogenase Total Creatine Kinase C-Reactive Protein Total Protein Albumin Triglycerides Arterial Blood Glucose 169 H Arterial Blood Ionized Calcium Urine Creatinine Urine Chloride Vancomycin Trough Coronavirus (PCR) Crossmatch 06/23/20 06/23/20 06/23/20 04:00 04:00 05:24 WBC 27.4 H RBC Hgb 11.3 L Hct 33.8 L RDW Lymph % (Auto) Lymph # (Auto) Walsh # (Auto) Seg Neuts % (Manual) 93.0 H Lymphocytes % (Manual) 1.0 L Nucleated RBC % 1.0 H Seg Neutrophils # Seg Neutrophils # Man 25.5 H Lymphocytes # (Manual) 0.3 L Monocytes # (Manual) 1.1 H PT INR APTT D-Dimer Heparin Anti-Xa Level ABG pH POC ABG pCO2 POC ABG pO2 ABG Hemoglobin ABG Oxyhemoglobin ABG Sodium ABG Potassium ABG Chloride ABG Glucose Carboxyhemoglobin Sodium Potassium Chloride 107.6 H Carbon Dioxide 20 L BUN 100 H Creatinine 4.7 H Glucose 168 H POC Glucose 151 H Lactic Acid Calcium Phosphorus Magnesium Ferritin AST ALT Lactate Dehydrogenase Total Creatine Kinase C-Reactive Protein Total Protein Albumin Triglycerides Arterial Blood Glucose Arterial Blood Ionized Calcium Urine Creatinine Urine Chloride Vancomycin Trough Coronavirus (PCR) Crossmatch 06/23/20 06/23/20 06/23/20 11:30 17:18 23:50 WBC RBC Hgb Hct RDW Lymph % (Auto) Lymph # (Auto) Walsh # (Auto) Seg Neuts % (Manual) Lymphocytes % (Manual) Nucleated RBC % Seg Neutrophils # Seg Neutrophils # Man Lymphocytes # (Manual) Monocytes # (Manual) PT INR APTT D-Dimer Heparin Anti-Xa Level ABG pH POC ABG pCO2 POC ABG pO2 ABG Hemoglobin ABG Oxyhemoglobin ABG Sodium ABG Potassium ABG Chloride ABG Glucose Carboxyhemoglobin Sodium Potassium Chloride Carbon Dioxide BUN Creatinine Glucose POC Glucose 157 H 156 H 162 H Lactic Acid Calcium Phosphorus Magnesium Ferritin AST ALT Lactate Dehydrogenase Total Creatine Kinase C-Reactive Protein Total Protein Albumin Triglycerides Arterial Blood Glucose Arterial Blood Ionized Calcium Urine Creatinine Urine Chloride Vancomycin Trough Coronavirus (PCR) Crossmatch 06/24/20 06/24/20 06/24/20 04:41 05:57 06:30 WBC 34.3 H RBC Hgb 10.9 L Hct 32.6 L RDW Lymph % (Auto) 2.0 L Lymph # (Auto) 0.7 L Walsh # (Auto) 1.2 H Seg Neuts % (Manual) 96.0 H Lymphocytes % (Manual) 3.0 L Nucleated RBC % Seg Neutrophils # 32.3 H Seg Neutrophils # Man 32.9 H Lymphocytes # (Manual) 1.0 L Monocytes # (Manual) PT INR APTT D-Dimer Heparin Anti-Xa Level ABG pH POC ABG pCO2 POC ABG pO2 71.1 L ABG Hemoglobin ABG Oxyhemoglobin 92.4 L ABG Sodium 115.6 L ABG Potassium ABG Chloride ABG Glucose 159 H Carboxyhemoglobin Sodium Potassium Chloride Carbon Dioxide BUN Creatinine Glucose POC Glucose 143 H Lactic Acid Calcium Phosphorus Magnesium Ferritin AST ALT Lactate Dehydrogenase Total Creatine Kinase C-Reactive Protein Total Protein Albumin Triglycerides Arterial Blood Glucose 159 H Arterial Blood Ionized Calcium 4.2 L Urine Creatinine Urine Chloride Vancomycin Trough Coronavirus (PCR) Crossmatch 06/24/20 06/24/20 06/24/20 07:03 09:37 11:56 WBC RBC Hgb Hct RDW Lymph % (Auto) Lymph # (Auto) Walsh # (Auto) Seg Neuts % (Manual) Lymphocytes % (Manual) Nucleated RBC % Seg Neutrophils # Seg Neutrophils # Man Lymphocytes # (Manual) Monocytes # (Manual) PT INR APTT D-Dimer Heparin Anti-Xa Level 0.26 L ABG pH POC ABG pCO2 POC ABG pO2 ABG Hemoglobin ABG Oxyhemoglobin ABG Sodium ABG Potassium ABG Chloride ABG Glucose Carboxyhemoglobin Sodium Potassium 5.1 H Chloride Carbon Dioxide BUN 103 H Creatinine 5.0 H Glucose 163 H POC Glucose 149 H Lactic Acid Calcium 7.6 L Phosphorus Magnesium Ferritin AST ALT Lactate Dehydrogenase Total Creatine Kinase C-Reactive Protein Total Protein Albumin Triglycerides Arterial Blood Glucose Arterial Blood Ionized Calcium Urine Creatinine Urine Chloride Vancomycin Trough Coronavirus (PCR) Crossmatch 06/24/20 06/25/20 06/25/20 18:09 01:05 03:00 WBC RBC Hgb 10.6 L Hct 32.1 L RDW Lymph % (Auto) Lymph # (Auto) Walsh # (Auto) Seg Neuts % (Manual) Lymphocytes % (Manual) Nucleated RBC % Seg Neutrophils # Seg Neutrophils # Man Lymphocytes # (Manual) Monocytes # (Manual) PT INR APTT D-Dimer Heparin Anti-Xa Level ABG pH POC ABG pCO2 POC ABG pO2 ABG Hemoglobin ABG Oxyhemoglobin ABG Sodium ABG Potassium ABG Chloride ABG Glucose Carboxyhemoglobin Sodium Potassium Chloride Carbon Dioxide BUN Creatinine Glucose POC Glucose 141 H 137 H Lactic Acid Calcium Phosphorus Magnesium Ferritin AST ALT Lactate Dehydrogenase Total Creatine Kinase C-Reactive Protein Total Protein Albumin Triglycerides Arterial Blood Glucose Arterial Blood Ionized Calcium Urine Creatinine Urine Chloride Vancomycin Trough Coronavirus (PCR) Crossmatch 06/25/20 06/25/20 06/25/20 03:48 05:17 12:08 WBC RBC Hgb Hct RDW Lymph % (Auto) Lymph # (Auto) Walsh # (Auto) Seg Neuts % (Manual) Lymphocytes % (Manual) Nucleated RBC % Seg Neutrophils # Seg Neutrophils # Man Lymphocytes # (Manual) Monocytes # (Manual) PT INR APTT D-Dimer Heparin Anti-Xa Level ABG pH POC ABG pCO2 29.4 L POC ABG pO2 67.1 L ABG Hemoglobin 11.5 L ABG Oxyhemoglobin ABG Sodium 124.1 L ABG Potassium 4.6 H ABG Chloride ABG Glucose 159 H Carboxyhemoglobin Sodium Potassium Chloride Carbon Dioxide BUN Creatinine Glucose POC Glucose 149 H 150 H Lactic Acid Calcium Phosphorus Magnesium Ferritin AST ALT Lactate Dehydrogenase Total Creatine Kinase C-Reactive Protein Total Protein Albumin Triglycerides Arterial Blood Glucose 159 H Arterial Blood Ionized Calcium 4.2 L Urine Creatinine Urine Chloride Vancomycin Trough Coronavirus (PCR) Crossmatch 06/25/20 06/25/20 06/25/20 16:27 16:35 17:27 WBC RBC Hgb Hct RDW Lymph % (Auto) Lymph # (Auto) Walsh # (Auto) Seg Neuts % (Manual) Lymphocytes % (Manual) Nucleated RBC % Seg Neutrophils # Seg Neutrophils # Man Lymphocytes # (Manual) Monocytes # (Manual) PT INR APTT D-Dimer Heparin Anti-Xa Level < 0.10 L ABG pH POC ABG pCO2 POC ABG pO2 ABG Hemoglobin ABG Oxyhemoglobin ABG Sodium ABG Potassium ABG Chloride ABG Glucose Carboxyhemoglobin Sodium Potassium Chloride Carbon Dioxide BUN Creatinine Glucose POC Glucose 143 H 156 H Lactic Acid Calcium Phosphorus Magnesium Ferritin AST ALT Lactate Dehydrogenase Total Creatine Kinase C-Reactive Protein Total Protein Albumin Triglycerides Arterial Blood Glucose Arterial Blood Ionized Calcium Urine Creatinine Urine Chloride Vancomycin Trough Coronavirus (PCR) Crossmatch 06/25/20 06/25/20 06/25/20 20:00 20:55 23:10 WBC 32.7 H RBC 3.06 L Hgb 9.0 L 9.5 L Hct 26.7 L 28.6 L RDW Lymph % (Auto) Lymph # (Auto) Walsh # (Auto) Seg Neuts % (Manual) Lymphocytes % (Manual) 2.0 L Nucleated RBC % Seg Neutrophils # Seg Neutrophils # Man 30.7 H Lymphocytes # (Manual) 0.7 L Monocytes # (Manual) 1.3 H PT 17.7 H INR 1.47 H APTT 65.8 H* D-Dimer Heparin Anti-Xa Level ABG pH POC ABG pCO2 POC ABG pO2 ABG Hemoglobin ABG Oxyhemoglobin ABG Sodium ABG Potassium ABG Chloride ABG Glucose Carboxyhemoglobin Sodium Potassium Chloride Carbon Dioxide BUN Creatinine Glucose POC Glucose Lactic Acid Calcium Phosphorus Magnesium Ferritin AST ALT Lactate Dehydrogenase Total Creatine Kinase C-Reactive Protein Total Protein Albumin Triglycerides Arterial Blood Glucose Arterial Blood Ionized Calcium Urine Creatinine Urine Chloride Vancomycin Trough Coronavirus (PCR) Crossmatch 06/25/20 06/26/20 06/26/20 23:14 01:30 03:25 WBC RBC Hgb Hct RDW Lymph % (Auto) Lymph # (Auto) Walsh # (Auto) Seg Neuts % (Manual) Lymphocytes % (Manual) Nucleated RBC % Seg Neutrophils # Seg Neutrophils # Man Lymphocytes # (Manual) Monocytes # (Manual) PT INR APTT D-Dimer Heparin Anti-Xa Level < 0.10 L ABG pH POC ABG pCO2 POC ABG pO2 ABG Hemoglobin 11.8 L ABG Oxyhemoglobin ABG Sodium 127.1 L ABG Potassium 5.4 H ABG Chloride ABG Glucose 155 H Carboxyhemoglobin 0.3 L Sodium Potassium Chloride Carbon Dioxide BUN Creatinine Glucose POC Glucose 148 H Lactic Acid Calcium Phosphorus Magnesium Ferritin AST ALT Lactate Dehydrogenase Total Creatine Kinase C-Reactive Protein Total Protein Albumin Triglycerides Arterial Blood Glucose 155 H Arterial Blood Ionized Calcium 4.2 L Urine Creatinine Urine Chloride Vancomycin Trough Coronavirus (PCR) Crossmatch 06/26/20 06/26/20 06/26/20 03:59 05:14 05:47 WBC 36.5 H RBC 3.26 L Hgb 9.7 L Hct 28.2 L RDW Lymph % (Auto) Lymph # (Auto) Walsh # (Auto) Seg Neuts % (Manual) 92.0 H Lymphocytes % (Manual) 4.0 L Nucleated RBC % Seg Neutrophils # Seg Neutrophils # Man 33.6 H Lymphocytes # (Manual) Monocytes # (Manual) PT INR APTT D-Dimer Heparin Anti-Xa Level ABG pH POC ABG pCO2 POC ABG pO2 ABG Hemoglobin ABG Oxyhemoglobin ABG Sodium ABG Potassium ABG Chloride ABG Glucose Carboxyhemoglobin Sodium Potassium 5.9 H Chloride Carbon Dioxide 20 L BUN 144 H Creatinine 6.4 H Glucose 149 H POC Glucose 128 H Lactic Acid Calcium 7.6 L Phosphorus Magnesium Ferritin AST ALT Lactate Dehydrogenase Total Creatine Kinase C-Reactive Protein Total Protein Albumin Triglycerides Arterial Blood Glucose Arterial Blood Ionized Calcium Urine Creatinine Urine Chloride Vancomycin Trough Coronavirus (PCR) Crossmatch 06/26/20 06/26/20 06/26/20 05:47 12:47 17:42 WBC RBC Hgb Hct RDW Lymph % (Auto) Lymph # (Auto) Walsh # (Auto) Seg Neuts % (Manual) Lymphocytes % (Manual) Nucleated RBC % Seg Neutrophils # Seg Neutrophils # Man Lymphocytes # (Manual) Monocytes # (Manual) PT 17.4 H INR 1.44 H APTT D-Dimer Heparin Anti-Xa Level ABG pH POC ABG pCO2 POC ABG pO2 ABG Hemoglobin ABG Oxyhemoglobin ABG Sodium ABG Potassium ABG Chloride ABG Glucose Carboxyhemoglobin Sodium Potassium Chloride Carbon Dioxide BUN Creatinine Glucose POC Glucose 124 H 127 H Lactic Acid Calcium Phosphorus Magnesium Ferritin AST ALT Lactate Dehydrogenase Total Creatine Kinase C-Reactive Protein Total Protein Albumin Triglycerides Arterial Blood Glucose Arterial Blood Ionized Calcium Urine Creatinine Urine Chloride Vancomycin Trough Coronavirus (PCR) Crossmatch 06/26/20 06/27/20 06/27/20 23:30 03:32 04:00 WBC RBC Hgb 8.7 L Hct 26.4 L RDW Lymph % (Auto) Lymph # (Auto) Walsh # (Auto) Seg Neuts % (Manual) Lymphocytes % (Manual) Nucleated RBC % Seg Neutrophils # Seg Neutrophils # Man Lymphocytes # (Manual) Monocytes # (Manual) PT INR APTT D-Dimer Heparin Anti-Xa Level ABG pH 7.298 L POC ABG pCO2 POC ABG pO2 ABG Hemoglobin 9.6 L ABG Oxyhemoglobin ABG Sodium 124.4 L ABG Potassium 6.6 H ABG Chloride ABG Glucose 136 H Carboxyhemoglobin Sodium Potassium Chloride Carbon Dioxide BUN Creatinine Glucose POC Glucose 123 H Lactic Acid Calcium Phosphorus Magnesium Ferritin AST ALT Lactate Dehydrogenase Total Creatine Kinase C-Reactive Protein Total Protein Albumin Triglycerides Arterial Blood Glucose 136 H Arterial Blood Ionized Calcium 4.1 L Urine Creatinine Urine Chloride Vancomycin Trough Coronavirus (PCR) Crossmatch 06/27/20 06/27/20 06/27/20 05:26 10:14 11:58 WBC RBC Hgb Hct RDW Lymph % (Auto) Lymph # (Auto) Walsh # (Auto) Seg Neuts % (Manual) Lymphocytes % (Manual) Nucleated RBC % Seg Neutrophils # Seg Neutrophils # Man Lymphocytes # (Manual) Monocytes # (Manual) PT INR APTT D-Dimer Heparin Anti-Xa Level ABG pH POC ABG pCO2 POC ABG pO2 ABG Hemoglobin ABG Oxyhemoglobin ABG Sodium ABG Potassium ABG Chloride ABG Glucose Carboxyhemoglobin Sodium 136 L Potassium 7.0 H* Chloride 97.8 L Carbon Dioxide BUN 172 H Creatinine 7.4 H Glucose 129 H POC Glucose 124 H 115 H Lactic Acid Calcium 7.6 L Phosphorus Magnesium Ferritin AST ALT Lactate Dehydrogenase Total Creatine Kinase C-Reactive Protein Total Protein Albumin Triglycerides Arterial Blood Glucose Arterial Blood Ionized Calcium Urine Creatinine Urine Chloride Vancomycin Trough Coronavirus (PCR) Crossmatch 06/27/20 06/27/20 06/27/20 17:32 18:30 23:24 WBC RBC Hgb Hct RDW Lymph % (Auto) Lymph # (Auto) Walsh # (Auto) Seg Neuts % (Manual) Lymphocytes % (Manual) Nucleated RBC % Seg Neutrophils # Seg Neutrophils # Man Lymphocytes # (Manual) Monocytes # (Manual) PT INR APTT D-Dimer Heparin Anti-Xa Level ABG pH POC ABG pCO2 POC ABG pO2 ABG Hemoglobin ABG Oxyhemoglobin ABG Sodium ABG Potassium ABG Chloride ABG Glucose Carboxyhemoglobin Sodium Potassium 7.3 H* Chloride Carbon Dioxide BUN Creatinine Glucose POC Glucose 122 H 116 H Lactic Acid Calcium Phosphorus Magnesium Ferritin AST ALT Lactate Dehydrogenase Total Creatine Kinase C-Reactive Protein Total Protein Albumin Triglycerides Arterial Blood Glucose Arterial Blood Ionized Calcium Urine Creatinine Urine Chloride Vancomycin Trough Coronavirus (PCR) Crossmatch 06/28/20 06/28/20 06/28/20 00:00 02:16 05:37 WBC RBC Hgb Hct RDW Lymph % (Auto) Lymph # (Auto) Walsh # (Auto) Seg Neuts % (Manual) Lymphocytes % (Manual) Nucleated RBC % Seg Neutrophils # Seg Neutrophils # Man Lymphocytes # (Manual) Monocytes # (Manual) PT INR APTT D-Dimer Heparin Anti-Xa Level ABG pH POC ABG pCO2 POC ABG pO2 79.0 L ABG Hemoglobin 11.7 L ABG Oxyhemoglobin ABG Sodium 128.1 L ABG Potassium 6.6 H ABG Chloride ABG Glucose 124 H Carboxyhemoglobin Sodium Potassium 7.3 H* Chloride Carbon Dioxide BUN Creatinine Glucose POC Glucose 115 H Lactic Acid Calcium Phosphorus Magnesium Ferritin AST ALT Lactate Dehydrogenase Total Creatine Kinase C-Reactive Protein Total Protein Albumin Triglycerides Arterial Blood Glucose 124 H Arterial Blood Ionized Calcium 4.2 L Urine Creatinine Urine Chloride Vancomycin Trough Coronavirus (PCR) Crossmatch 06/28/20 06/28/20 06/28/20 10:03 10:03 11:51 WBC 33.6 H RBC 3.03 L Hgb 8.9 L Hct 27.0 L RDW Lymph % (Auto) Lymph # (Auto) Walsh # (Auto) Seg Neuts % (Manual) Lymphocytes % (Manual) Nucleated RBC % Seg Neutrophils # Seg Neutrophils # Man Lymphocytes # (Manual) Monocytes # (Manual) PT INR APTT D-Dimer Heparin Anti-Xa Level ABG pH POC ABG pCO2 POC ABG pO2 ABG Hemoglobin ABG Oxyhemoglobin ABG Sodium ABG Potassium ABG Chloride ABG Glucose Carboxyhemoglobin Sodium 136 L Potassium 6.5 H* Chloride Carbon Dioxide 20 L BUN 129 H Creatinine 5.8 H Glucose 113 H POC Glucose 107 H Lactic Acid Calcium 7.6 L Phosphorus Magnesium Ferritin AST ALT Lactate Dehydrogenase Total Creatine Kinase C-Reactive Protein Total Protein Albumin Triglycerides Arterial Blood Glucose Arterial Blood Ionized Calcium Urine Creatinine Urine Chloride Vancomycin Trough Coronavirus (PCR) Crossmatch 06/28/20 06/28/20 06/29/20 17:45 Unknown 03:15 WBC RBC Hgb Hct RDW Lymph % (Auto) Lymph # (Auto) Walsh # (Auto) Seg Neuts % (Manual) Lymphocytes % (Manual) Nucleated RBC % Seg Neutrophils # Seg Neutrophils # Man Lymphocytes # (Manual) Monocytes # (Manual) PT INR APTT D-Dimer Heparin Anti-Xa Level ABG pH POC ABG pCO2 POC ABG pO2 ABG Hemoglobin 7.8 L ABG Oxyhemoglobin ABG Sodium 127.4 L ABG Potassium 5.5 H ABG Chloride 97.0 L ABG Glucose 96 H Carboxyhemoglobin Sodium Potassium 5.4 H Chloride Carbon Dioxide BUN Creatinine Glucose POC Glucose 117 H Lactic Acid Calcium Phosphorus Magnesium Ferritin AST ALT Lactate Dehydrogenase Total Creatine Kinase C-Reactive Protein Total Protein Albumin Triglycerides Arterial Blood Glucose 96 H Arterial Blood Ionized Calcium 4.0 L Urine Creatinine Urine Chloride Vancomycin Trough Coronavirus (PCR) Crossmatch 06/29/20 06/29/20 06/29/20 03:45 Unknown Unknown WBC RBC Hgb Hct RDW Lymph % (Auto) Lymph # (Auto) Walsh # (Auto) Seg Neuts % (Manual) Lymphocytes % (Manual) Nucleated RBC % Seg Neutrophils # Seg Neutrophils # Man Lymphocytes # (Manual) Monocytes # (Manual) PT INR APTT D-Dimer Heparin Anti-Xa Level ABG pH POC ABG pCO2 POC ABG pO2 ABG Hemoglobin ABG Oxyhemoglobin ABG Sodium ABG Potassium ABG Chloride ABG Glucose Carboxyhemoglobin Sodium 135 L Potassium 6.0 H 6.1 H* Chloride 94.8 L Carbon Dioxide BUN 109 H 114 H Creatinine 5.5 H Glucose POC Glucose Lactic Acid Calcium 7.4 L Phosphorus Magnesium Ferritin AST 47 H ALT Lactate Dehydrogenase Total Creatine Kinase C-Reactive Protein Total Protein 4.9 L Albumin 2.2 L Triglycerides Arterial Blood Glucose Arterial Blood Ionized Calcium Urine Creatinine Urine Chloride Vancomycin Trough Coronavirus (PCR) Crossmatch 06/29/20 06/29/20 06/30/20 Unknown Unknown 03:32 WBC 20.7 H RBC 2.57 L Hgb 7.6 L Hct 23.0 L RDW Lymph % (Auto) Lymph # (Auto) Walsh # (Auto) Seg Neuts % (Manual) Lymphocytes % (Manual) Nucleated RBC % Seg Neutrophils # Seg Neutrophils # Man Lymphocytes # (Manual) Monocytes # (Manual) PT INR APTT D-Dimer Heparin Anti-Xa Level ABG pH POC ABG pCO2 POC ABG pO2 ABG Hemoglobin 11.4 L ABG Oxyhemoglobin ABG Sodium 130.1 L ABG Potassium 5.0 H ABG Chloride ABG Glucose Carboxyhemoglobin Sodium Potassium Chloride Carbon Dioxide BUN Creatinine Glucose POC Glucose Lactic Acid Calcium Phosphorus Magnesium Ferritin AST ALT Lactate Dehydrogenase Total Creatine Kinase 618 H C-Reactive Protein Total Protein Albumin Triglycerides Arterial Blood Glucose Arterial Blood Ionized Calcium 3.9 L Urine Creatinine Urine Chloride Vancomycin Trough Coronavirus (PCR) Crossmatch 06/30/20 06/30/20 06/30/20 03:50 03:50 11:39 WBC 13.1 H RBC Hgb Hct RDW Lymph % (Auto) Lymph # (Auto) Walsh # (Auto) Seg Neuts % (Manual) 95.0 H Lymphocytes % (Manual) 3.0 L Nucleated RBC % Seg Neutrophils # Seg Neutrophils # Man 12.4 H Lymphocytes # (Manual) 0.4 L Monocytes # (Manual) PT INR APTT D-Dimer Heparin Anti-Xa Level ABG pH POC ABG pCO2 POC ABG pO2 ABG Hemoglobin ABG Oxyhemoglobin ABG Sodium ABG Potassium ABG Chloride ABG Glucose Carboxyhemoglobin Sodium 135 L Potassium 5.4 H D Chloride 93.6 L Carbon Dioxide BUN 85 H Creatinine 4.6 H Glucose POC Glucose 111 H Lactic Acid Calcium 7.1 L Phosphorus 9.40 H Magnesium Ferritin AST ALT Lactate Dehydrogenase Total Creatine Kinase C-Reactive Protein Total Protein Albumin Triglycerides Arterial Blood Glucose Arterial Blood Ionized Calcium Urine Creatinine Urine Chloride Vancomycin Trough Coronavirus (PCR) Crossmatch 06/30/20 06/30/20 07/01/20 13:12 Unknown 03:19 WBC RBC Hgb 7.8 L D Hct 23.2 L D RDW Lymph % (Auto) Lymph # (Auto) Walsh # (Auto) Seg Neuts % (Manual) Lymphocytes % (Manual) Nucleated RBC % Seg Neutrophils # Seg Neutrophils # Man Lymphocytes # (Manual) Monocytes # (Manual) PT INR APTT D-Dimer Heparin Anti-Xa Level ABG pH 7.461 H POC ABG pCO2 POC ABG pO2 77.2 L ABG Hemoglobin 6.9 L ABG Oxyhemoglobin ABG Sodium 128.5 L ABG Potassium ABG Chloride 97.0 L ABG Glucose Carboxyhemoglobin Sodium Potassium Chloride Carbon Dioxide BUN Creatinine Glucose POC Glucose Lactic Acid Calcium Phosphorus Magnesium Ferritin AST ALT Lactate Dehydrogenase Total Creatine Kinase C-Reactive Protein Total Protein Albumin Triglycerides Arterial Blood Glucose Arterial Blood Ionized Calcium 3.7 L Urine Creatinine Urine Chloride Vancomycin Trough Coronavirus (PCR) Positive A Crossmatch 07/01/20 07/01/20 07/01/20 06:00 06:00 11:04 WBC 16.7 H RBC 2.16 L Hgb 6.4 L Hct 19.2 L* RDW Lymph % (Auto) Lymph # (Auto) Walsh # (Auto) Seg Neuts % (Manual) Lymphocytes % (Manual) Nucleated RBC % Seg Neutrophils # Seg Neutrophils # Man Lymphocytes # (Manual) Monocytes # (Manual) PT INR APTT D-Dimer Heparin Anti-Xa Level ABG pH POC ABG pCO2 POC ABG pO2 ABG Hemoglobin ABG Oxyhemoglobin ABG Sodium ABG Potassium ABG Chloride ABG Glucose Carboxyhemoglobin Sodium 136 L Potassium Chloride 95.8 L Carbon Dioxide BUN 72 H Creatinine 4.3 H Glucose POC Glucose Lactic Acid Calcium 6.7 L Phosphorus Magnesium Ferritin AST ALT Lactate Dehydrogenase Total Creatine Kinase C-Reactive Protein Total Protein Albumin Triglycerides 250 H Arterial Blood Glucose Arterial Blood Ionized Calcium Urine Creatinine Urine Chloride Vancomycin Trough Coronavirus (PCR) Crossmatch See Detail 07/02/20 07/02/20 04:44 06:00 WBC 14.6 H RBC 2.47 L Hgb 7.4 L Hct 21.8 L RDW Lymph % (Auto) Lymph # (Auto) Walsh # (Auto) Seg Neuts % (Manual) Lymphocytes % (Manual) Nucleated RBC % Seg Neutrophils # Seg Neutrophils # Man Lymphocytes # (Manual) Monocytes # (Manual) PT INR APTT D-Dimer Heparin Anti-Xa Level ABG pH 7.457 H POC ABG pCO2 POC ABG pO2 79.4 L ABG Hemoglobin 8.5 L ABG Oxyhemoglobin ABG Sodium 128.4 L ABG Potassium ABG Chloride 97.0 L ABG Glucose 100 H Carboxyhemoglobin Sodium Potassium Chloride Carbon Dioxide BUN Creatinine Glucose POC Glucose Lactic Acid Calcium Phosphorus Magnesium Ferritin AST ALT Lactate Dehydrogenase Total Creatine Kinase C-Reactive Protein Total Protein Albumin Triglycerides Arterial Blood Glucose 100 H Arterial Blood Ionized Calcium 3.9 L Urine Creatinine Urine Chloride Vancomycin Trough Coronavirus (PCR) Crossmatch Chest x-ray: pending Allied health notes reviewed: nursing
--- NOTE | 2020-07-02 12:34 | Progress Note ---
Assessment and Plan - Patient Problems (1) GIRISH (acute kidney injury) Current Visit: Yes Status: Acute Plan to address problem: Acute kidney failure 2/2 prerenal azotemia versus acute tubular necrosis, Kidney function worsening and patient developed hyperkalemia, refractory acidosis and worsening azotemia. Hemodialysis initiated on June 22. He modynamic status has improved. Cont HD on MWF schedule with vasopressor support as needed to maintain MAP > 65mmHg (2) Severe sepsis with septic shock Current Visit: Yes Status: Acute Plan to address problem: Continue antibiotics per infectious disease salesforce consultant appropriately adjusted to the degree of renal function. Patient is off of vasopressors. (3) Hyperkalemia Current Visit: Yes Status: Acute Plan to address problem: improving with HD, cont 2g K renal diet (4) Metabolic acidosis Current Visit: Yes Status: Acute Plan to address problem: Acidosis improving with dialysis. (5) Acute respiratory failure with hypoxia Current Visit: Yes Status: Acute Plan to address problem: Continue respiratory management by pulmonary (6) Pneumonia due to COVID-19 virus Current Visit: Yes Status: Acute Plan to address problem: IV Dexamethasone Supplemental oxygen/Respiratory support as needed Proning as tolerated Remdesevir contra-indicated due to Kidney failure Prophylactic anticoagulation Trend inflammatory markers to assess disease progression and prognosis Subjective Date of service: 07/02/20 Principal diagnosis: ARF/Septic Shock/COVID-19 PNA, AF with RVR Interval history: Patient was not examined today due to the COVID-19 status to 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 I reviewed multidisciplinary notes and discussed with staff and physicians as needed. Patient is sedated on propofol and fentanyl. He is on anticoagulation with intravenous heparin. HD well tolerated yesterday with 1L UF. pt remains off vasopressors, on ventilator support with FiO2 40% this AM Objective - Exam Narrative Exam: exam deferred d/t PPE preservation - Vital Signs Vital signs: Vital Signs - 12hr 07/02/20 07/02/20 07/02/20 00:45 00:47 01:00 Temperature Pulse Rate 88 95 H 98 H Respiratory 25 H 21 Rate Blood Pressure 159/54 159/54 144/65 O2 Sat by Pulse 96 94 95 Oximetry 07/02/20 07/02/20 07/02/20 01:15 01:30 01:45 Temperature Pulse Rate 90 92 H 102 H Respiratory 25 H 28 H 26 H Rate Blood Pressure 160/55 158/56 164/66 O2 Sat by Pulse 95 95 95 Oximetry 07/02/20 07/02/20 07/02/20 02:00 02:15 02:30 Temperature Pulse Rate 95 H 94 H 106 H Respiratory 25 H 26 H 25 H Rate Blood Pressure 140/45 129/51 140/58 O2 Sat by Pulse 95 94 94 Oximetry 07/02/20 07/02/20 07/02/20 02:45 03:00 03:15 Temperature Pulse Rate 114 H 111 H 124 H Respiratory 25 H 25 H 26 H Rate Blood Pressure 131/57 145/63 144/72 O2 Sat by Pulse 93 94 95 Oximetry 07/02/20 07/02/20 07/02/20 03:30 03:45 04:01 Temperature 99.5 F Pulse Rate 133 H 115 H 131 H Respiratory 25 H 25 H 20 Rate Blood Pressure 135/63 144/67 128/74 O2 Sat by Pulse 94 94 92 Oximetry 07/02/20 07/02/20 07/02/20 04:15 04:28 04:30 Temperature Pulse Rate 122 H 128 H 118 H Respiratory 21 25 H Rate Blood Pressure 133/64 132/57 O2 Sat by Pulse 92 95 Oximetry 07/02/20 07/02/20 07/02/20 04:32 04:45 05:00 Temperature Pulse Rate 123 H 133 H 115 H Respiratory 26 H 25 H Rate Blood Pressure 132/57 113/64 114/57 O2 Sat by Pulse 95 96 96 Oximetry 07/02/20 07/02/20 07/02/20 05:15 05:30 05:45 Temperature Pulse Rate 104 H 117 H 114 H Respiratory 25 H 25 H 25 H Rate Blood Pressure 114/53 121/51 115/56 O2 Sat by Pulse 96 96 96 Oximetry 07/02/20 07/02/20 07/02/20 06:00 06:15 06:30 Temperature Pulse Rate 106 H 123 H 120 H Respiratory 25 H 28 H 25 H Rate Blood Pressure 109/56 117/60 108/54 O2 Sat by Pulse 97 96 96 Oximetry 07/02/20 07/02/20 07/02/20 06:45 07:00 07:15 Temperature Pulse Rate 116 H 102 H 101 H Respiratory 25 H 25 H 25 H Rate Blood Pressure 111/52 114/49 119/49 O2 Sat by Pulse 98 98 98 Oximetry 07/02/20 07/02/20 07/02/20 07:31 07:45 08:00 Temperature 98.9 F Pulse Rate 126 H 123 H 145 H Respiratory 18 25 H 30 H Rate Blood Pressure 112/83 112/83 108/54 O2 Sat by Pulse 97 93 94 Oximetry 07/02/20 07/02/20 07/02/20 08:05 08:15 08:31 Temperature Pulse Rate 135 H 126 H 118 H Respiratory 25 H 23 Rate Blood Pressure 163/92 166/70 167/65 O2 Sat by Pulse 93 94 95 Oximetry 07/02/20 07/02/20 07/02/20 08:45 09:01 09:15 Temperature Pulse Rate 127 H 135 H 124 H Respiratory 31 H 26 H 28 H Rate Blood Pressure 163/72 144/62 159/57 O2 Sat by Pulse 94 95 94 Oximetry 07/02/20 07/02/20 07/02/20 09:31 09:45 10:01 Temperature Pulse Rate 132 H 122 H 123 H Respiratory 24 25 H 26 H Rate Blood Pressure 147/58 157/66 161/71 O2 Sat by Pulse 95 95 96 Oximetry 07/02/20 07/02/20 07/02/20 10:15 10:31 10:45 Temperature Pulse Rate 128 H 135 H 115 H Respiratory 16 30 H 25 H Rate Blood Pressure 146/71 114/61 129/47 O2 Sat by Pulse 96 96 96 Oximetry 07/02/20 07/02/20 07/02/20 11:00 11:15 11:23 Temperature Pulse Rate 102 H 118 H 110 H Respiratory 25 H 25 H Rate Blood Pressure 129/47 112/55 112/55 O2 Sat by Pulse 96 97 Oximetry 07/02/20 07/02/20 11:30 12:00 Temperature 100.0 F H Pulse Rate 121 H Respiratory 25 H Rate Blood Pressure 126/56 O2 Sat by Pulse 97 Oximetry - Lab 07/02/20 06:00 07/02/20 11:33 Most recent lab results ABG pH 7.457 (7.320-7.450) H 07/02/20 04:44 Calcium 7.2 mg/dL (8.4-10.2) L 07/02/20 11:33 Phosphorus 9.40 mg/dL (2.5-4.5) H 06/30/20 03:50 Magnesium 2.70 mg/dL (1.7-2.3) H 06/18/20 20:33 Urine Creatinine 192.4 mg/dL (0.1-20.0) H 06/18/20 15:00 Urine Sodium 28 mmol/L 06/18/20 15:00 Medications & Allergies - Medications Allergies/Adverse Reactions: Allergies No Known Allergies Allergy (Unverified 06/17/20 14:24) Home Medications: Home Medications Medication Instructions Recorded Confirmed Last Taken Type Losartan/Hydrochlorothiazide 1 each PO QDAY 06/19/20 06/19/20 Unknown History [Losartan-Hctz 100-25 mg Tab] amLODIPine [Norvasc] 5 mg PO DAILY 06/19/20 06/19/20 Unknown History Active Medications: Generic Name Dose Route Start Last Admin Trade Name Freq PRN Reason Stop Dose Admin Acetaminophen 650 mg 06/17/20 14:17 06/19/20 06:42 Acetaminophen 325 Mg Tab PO 650 mg Q4H PRN Administration Pain MILD(1-3)/Fever >100.5/ROBERTS Lipase/Protease/Amylase 1 each 06/19/20 12:15 Lipase 10,500/Protease 25,000/Amylase 43,750 (Units) Dr Kulkarni FEEDTUBE PRN PRN For Clogged Feeding Tube Ascorbic Acid 250 mg 06/17/20 22:00 07/02/20 10:07 Ascorbic Acid 250 Mg Tab PO 250 mg BID CONNOR Administration Cholecalciferol 1,000 unit 06/18/20 10:00 07/02/20 10:08 Cholecalciferol (Vit D3) 1000 Unit (25 Mcg) Tab PO 1,000 unit DAILY CONNOR Administration Diltiazem HCl 30 mg 07/02/20 12:00 07/02/20 11:23 Diltiazem 30 Mg Tab PO 30 mg Q6HR CONNOR Administration Docusate Sodium 100 mg 06/23/20 15:00 07/02/20 10:07 Docusate Sodium 100 Mg/10 Ml Oral Liqd FEEDTUBE 100 mg BID CONNOR Administration Famotidine 20 mg 06/20/20 11:00 07/02/20 10:07 Famotidine 20 Mg/2 Ml Inj IV 20 mg DAILY CONNOR Administration Fentanyl 50 mcg 06/18/20 01:02 06/28/20 04:32 Fentanyl 100 Mcg/2 Ml Inj IV 50 mcg Q10MIN PRN Administration ANALGESIA Heparin Sodium (Porcine) 5,000 unit 06/22/20 12:53 06/30/20 13:36 Heparin 10,000 Unit/1 Ml Vial IV 5,000 unit PAM PRN Administration hemodialysis Hydrophilic Ointment 1 applic 06/17/20 22:52 Lip Therapy Vaseline TP Q2HR PRN Dry Lips Norepinephrine 4 mg in 250 mls @ 7.5 mls/hr 06/18/20 00:00 07/01/20 13:45 Levophed Drip 4 Mg/Ns 250 Ml IV 2 mcg/min TITR CONNOR 7.5 mls/hr Titration Protocol 2 MCG/MIN Propofol 1,000 mg in 100 mls @ 3.402 mls/hr 06/18/20 01:00 07/02/20 04:02 Diprivan 10 Mg/Ml IV 15 mcg/kg/min TITR CONNOR 10.206 mls/hr Administration Protocol 5 MCG/KG/MIN Fentanyl Citrate 2,000 mcg in 100 mls @ 5.67 mls/hr 06/18/20 02:00 07/02/20 08:00 Fentanyl Drip Premix IV 3 mcg/kg/hr TITR CONNOR 17.01 mls/hr Administration Protocol 1 MCG/KG/HR Vasopressin 20 unit/ Sodium 101 mls @ 9.09 mls/hr 06/18/20 10:00 06/24/20 18:05 Chloride IV 0 units/min TITR CONNOR 0 mls/hr Titration Protocol 0.03 UNITS/MIN Sodium Chloride 500 mls @ 1 mls/hr 06/18/20 09:38 06/19/20 21:37 Nacl 0.9% 500 Ml IV 0 mls/hr DIRECT PRN Infusion ARTERIAL LINE FLUSH Sodium Chloride 100 mls @ 999 mls/hr 06/28/20 01:25 Nacl 0.9% IV PAM PRN Hypotension Amiodarone HCl 900 mg/ 500 mls @ 33.333 mls/hr 06/28/20 15:00 07/01/20 18:29 Dextrose IV 0.5 mg/min DIRECT CONNOR 16.667 mls/hr Administration Protocol 1 MG/MIN Sodium Chloride 100 mls @ 999 mls/hr 06/30/20 16:59 Nacl 0.9% IV PAM PRN Hypotension Insulin Human Regular 0 units 06/18/20 12:00 07/02/20 05:48 Insulin Regular, Human 100 Units/1 Ml SUB-Q Not Given Q6HR [facility]1983 Protocol Lorazepam 1 mg 06/17/20 17:05 06/17/20 17:10 Lorazepam 2 Mg/Ml Vial IV 1 mg BID PRN Administration Anxiety Metoclopramide HCl 10 mg 06/28/20 13:00 07/02/20 05:56 Metoclopramide 10 Mg/2 Ml Inj IV 10 mg Q8H CONNOR Administration Multi-Ingred Cream/Lotion/Oil/Oint 1 applic 06/17/20 22:52 Mineral Oil/Petrolatum, White Ophth Oint 3.5 Gm OU Q4HR PRN Dry Eye(s) Ondansetron HCl 4 mg 06/17/20 14:17 Ondansetron 4 Mg/2 Ml Inj IV Q8H PRN Nausea And Vomiting Polyethylene Glycol 17 gm 06/23/20 15:00 07/02/20 10:08 Polyethylene Glycol 3350 17 Gm Powder PO 17 gm QDAY CONNOR Administration Quetiapine Fumarate 200 mg 06/28/20 13:00 07/02/20 10:07 Quetiapine 200 Mg Tab PO 200 mg BID CONNOR Administration Simple Syrup 15 ml 06/19/20 12:15 Simple Syrup 15 Ml FEEDTUBE PRN PRN Hypoglycemia Simple Syrup 30 ml 06/19/20 12:15 Simple Syrup 15 Ml FEEDTUBE PRN PRN Hypoglycemia Sodium Bicarbonate 325 mg 06/19/20 12:15 Sodium Bicarbonate 325 Mg Tab FEEDTUBE PRN PRN For Clogged Feeding Tube Sodium Chloride 10 ml 06/17/20 22:00 07/02/20 10:09 Sodium Chloride 0.9% 10 Ml Flush Syringe IV 10 ml BID CONNOR Administration Sodium Chloride 10 ml 06/17/20 14:17 Sodium Chloride 0.9% 10 Ml Flush Syringe IV PRN PRN LINE FLUSH Zinc Sulfate 220 mg 06/17/20 22:00 07/02/20 11:23 Zinc Sulfate 220 Mg Cap PO 220 mg BID CONNOR Administration
--- NOTE | 2020-07-02 12:48 | Progress Note ---
Assessment and Plan 59-year-old white male who was admitted for pneumonia secondary to Covid with associated respiratory failure and sepsis. Hyperkalemia -Treated aggressively -Calcium gluconate IV sodium bicarbonate and Kayexalate given Acute metabolic encephalopathy -Due to severe sepsis and severe hypoxia -CT head ordered (patient is too unstable to do the scan), currently intubated, continue supportive care with frequent neuro check Acute hypoxic respiratory failure -Due to severe COVID-19 pneumonia -Intubated following admission overnight as patient was unable to maintain oxygenation with 100% FiO2 with BiPAP -Critical care following, frequent nebulizer breathing treatment, empiric steroid Severe septic shock -Patient currently on 2 pressor support -Wean off as tolerated COVID-19 pneumonia -Follow inflammatory markers, ID consulted --Patient initially tested positive for COVID-19 virus about 2 weeks before this admission -CXR shows patchy parenchymal disease which represent pulmonary edema or atypical pneumonia -Placed on dexamethasone for total 10 days and completed remdesivir total 5 days -Continue empiric antibiotics for now per ID recommendation -Droplet/contact isolation -Continue SPO2 monitoring -Supplemental oxygen as needed -Pulmonary hygiene, Prone intermittently to improve oxygenation -Vitamin C, vitamin D, zinc -Anticoagulation per protocol -Lasix IV as needed to prevent pulmonary edema GIRISH, likely ATN -Follow BMP daily, avoid nephrotoxins -Consulted nephrology, follow recommendations -Renal function continues to decline, started on hemodialysis since 06/22/20 hypokalemia, repleted Supraventricular tachycardia/paroxysmal atrial fibrillation -likely due to severe sepsis -Patient currently on pressors and IV amiodarone drip for rate control if needed -Consulted cardiology, echo ordered currently pending -Placed on heparin drip Elevated LFT, due to shock liver from severe sepsis and COVID-19 infection -Continue to trend Morbid obesity, -Associated with poor outcome with Covid infection -need counseling for diet and exercise and healthy lifestyles once clinically stable as outpatient DVT prophylaxis, per Covid protocol Full CODE STATUS Poor prognosis The high probability of a clinically significant, sudden or life threatening deterioration of the [[facility] [employer], 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 The aggregate critical care time was [42] minutes. This time is in addition to time spent performing reported procedures but includes the following: [x] Data Review and interpretation [x] Patient assessment and monitoring of vital signs [x] Documentation [x] Medication orders and management daily course: 06/18: Patient got intubated overnight. Patient was placed on BiPAP to maintain oxygenation with 100% FiO2 but apparently he found to take off his argueta which made his oxygen saturation go down at 60s/50s and patient was found altered mental status. Code met was called immediately. Patient was transferred to ICU and intubated, patient currently on 2 pressors, intubated with 100% FiO2, renal function noted to be decline, nephrology consulted. Discussed with [place] physician Dr. Thompson and requested call back on Saturday. Poor prognosis, continue to monitor with aggressive supportive care. Also called family/ to update clinical status. 06/19: Repeat COVID test was positive. cont cefepime, remdesivir per ID recommendation. follow inflammatory markers, cbc, bmp. placed on heparin drip for atrial fib 06/20: Remains on mechanical ventilation, on 2 pressors, on heparin drip. discussed with and daughter by phone. Renal function declining. cont supportive care for now. 06/21: Renal function cont to decline, urine outpt sig decreased. started on lasix 80mg BID, plan to follow urine output, if no improvement patient need to start on HD. called and daughter today. updated all clinical details 06/22: Renal function continues to decline with uremia and hyperkalemia. Will need to proceed with hemodialysis. Nephrology discussed with the family and they agrees for the hemodialysis. Patient remains on pressor support and mechanical ventilation. Vas-Cath placed today by vascular started on hemodialysis today. 06/23: 2nd round of HD today, remains on 2 pressors. per RN not tolerating TF, has no record of BM since 06/18. start on stool softner. follow cbc/bmp. updated family( and daughter) by phone -all question answered to best of my knowledge and to their satisfaction. Patient remains critically ill with a very poor prognosis. 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 06/25/2020 continue supportive care very poor prognosis 06/26/2020 continue supportive care very poor prognosis family updated 06/27/2020 continue supportive care and weaning if possible 06/28/2020 continue supportive care, talk with at length 06/29: Resumed care. K level persistently high. give one dose of bicarbonate, plan for HD today, recheck k after HD. updated family by phone 06/30: updated family by phone. Patient remains on amiodarone drip and vasopressin. Getting HD at the bedside. Tolerating tube feeding at low rate. 07/01: Hb dropped to 6.4 today, transfuse one unit PRBC. patient is off pressor today, remains on amioderone. cont to monitor 07/02: Called patient and updated clinical details. Patient remains critically ill, still intubated. Patient's oxygen requirement and PEEP pressure has went down. Continue weaning protocol per critical care recommendation. Patient remains off pressor. Continue to wean off from amiodarone and plan to rate control with p.o. medications. Tolerating tube feeding. H&H stable today. Order for stool for occult blood. Monitor H&H and BMP. Continue to follow clinically Subjective Date of service: 07/02/20 Principal diagnosis: ARF/Septic Shock/COVID-19 PNA, AF with RVR Objective - Constitutional Vitals: Vital Signs - 12hr 07/02/20 07/02/20 07/02/20 01:00 01:15 01:30 Temperature Pulse Rate 98 H 90 92 H Respiratory 21 25 H 28 H Rate Blood Pressure 144/65 160/55 158/56 O2 Sat by Pulse 95 95 95 Oximetry 07/02/20 07/02/20 07/02/20 01:45 02:00 02:15 Temperature Pulse Rate 102 H 95 H 94 H Respiratory 26 H 25 H 26 H Rate Blood Pressure 164/66 140/45 129/51 O2 Sat by Pulse 95 95 94 Oximetry 07/02/20 07/02/20 07/02/20 02:30 02:45 03:00 Temperature Pulse Rate 106 H 114 H 111 H Respiratory 25 H 25 H 25 H Rate Blood Pressure 140/58 131/57 145/63 O2 Sat by Pulse 94 93 94 Oximetry 07/02/20 07/02/20 07/02/20 03:15 03:30 03:45 Temperature 99.5 F Pulse Rate 124 H 133 H 115 H Respiratory 26 H 25 H 25 H Rate Blood Pressure 144/72 135/63 144/67 O2 Sat by Pulse 95 94 94 Oximetry 07/02/20 07/02/20 07/02/20 04:01 04:15 04:28 Temperature Pulse Rate 131 H 122 H 128 H Respiratory 20 21 Rate Blood Pressure 128/74 133/64 O2 Sat by Pulse 92 92 Oximetry 07/02/20 07/02/20 07/02/20 04:30 04:32 04:45 Temperature Pulse Rate 118 H 123 H 133 H Respiratory 25 H 26 H Rate Blood Pressure 132/57 132/57 113/64 O2 Sat by Pulse 95 95 96 Oximetry 07/02/20 07/02/20 07/02/20 05:00 05:15 05:30 Temperature Pulse Rate 115 H 104 H 117 H Respiratory 25 H 25 H 25 H Rate Blood Pressure 114/57 114/53 121/51 O2 Sat by Pulse 96 96 96 Oximetry 07/02/20 07/02/20 07/02/20 05:45 06:00 06:15 Temperature Pulse Rate 114 H 106 H 123 H Respiratory 25 H 25 H 28 H Rate Blood Pressure 115/56 109/56 117/60 O2 Sat by Pulse 96 97 96 Oximetry 07/02/20 07/02/20 07/02/20 06:30 06:45 07:00 Temperature Pulse Rate 120 H 116 H 102 H Respiratory 25 H 25 H 25 H Rate Blood Pressure 108/54 111/52 114/49 O2 Sat by Pulse 96 98 98 Oximetry 07/02/20 07/02/20 07/02/20 07:15 07:31 07:45 Temperature Pulse Rate 101 H 126 H 123 H Respiratory 25 H 18 25 H Rate Blood Pressure 119/49 112/83 112/83 O2 Sat by Pulse 98 97 93 Oximetry 07/02/20 07/02/20 07/02/20 08:00 08:05 08:15 Temperature 98.9 F Pulse Rate 145 H 135 H 126 H Respiratory 30 H 25 H Rate Blood Pressure 108/54 163/92 166/70 O2 Sat by Pulse 94 93 94 Oximetry 07/02/20 07/02/20 07/02/20 08:31 08:45 09:01 Temperature Pulse Rate 118 H 127 H 135 H Respiratory 23 31 H 26 H Rate Blood Pressure 167/65 163/72 144/62 O2 Sat by Pulse 95 94 95 Oximetry 07/02/20 07/02/20 07/02/20 09:15 09:31 09:45 Temperature Pulse Rate 124 H 132 H 122 H Respiratory 28 H 24 25 H Rate Blood Pressure 159/57 147/58 157/66 O2 Sat by Pulse 94 95 95 Oximetry 07/02/20 07/02/20 07/02/20 10:01 10:15 10:31 Temperature Pulse Rate 123 H 128 H 135 H Respiratory 26 H 16 30 H Rate Blood Pressure 161/71 146/71 114/61 O2 Sat by Pulse 96 96 96 Oximetry 07/02/20 07/02/20 07/02/20 10:45 11:00 11:15 Temperature Pulse Rate 115 H 102 H 118 H Respiratory 25 H 25 H 25 H Rate Blood Pressure 129/47 129/47 112/55 O2 Sat by Pulse 96 96 97 Oximetry 07/02/20 07/02/20 07/02/20 11:23 11:30 12:00 Temperature 100.0 F H Pulse Rate 110 H 121 H Respiratory 25 H Rate Blood Pressure 112/55 126/56 O2 Sat by Pulse 97 Oximetry - Labs CBC & Chem 7: 07/02/20 06:00 07/02/20 11:33 Labs: Abnormal lab results 07/01/20 07/02/20 07/02/20 Range/Units 11:04 04:44 06:00 WBC 14.6 H (4.5-11.0) K/mm3 RBC 2.47 L (3.65-5.03) M/mm3 Hgb 7.4 L (11.8-15.2) gm/dl Hct 21.8 L (35.5-45.6) % ABG pH 7.457 H (7.320-7.450) POC ABG pO2 79.4 L (83-108) mmHg ABG Hemoglobin 8.5 L (12.0-17.5) ABG Sodium 128.4 L (136.0-145.0) mmol/L ABG Chloride 97.0 L (98-107) mmol/L ABG Glucose 100 H (65-95) mg/dL Sodium (137-145) mmol/L Potassium (3.6-5.0) mmol/L Chloride (98-107) mmol/L BUN (9-20) mg/dL Creatinine (0.8-1.3) mg/dL Glucose (75-100) mg/dL Calcium (8.4-10.2) mg/dL Direct Bilirubin (0-0.2) mg/dL AST (5-40) units/L ALT (7-56) units/L Total Protein (6.3-8.2) g/dL Albumin (3.9-5) g/dL Arterial Blood Glucose 100 H (65-95) mg/dL Arterial Blood Ionized Calcium 3.9 L (4.6-5.3) mg/dL Crossmatch See Detail 07/02/20 07/02/20 Range/Units 11:33 11:33 WBC (4.5-11.0) K/mm3 RBC (3.65-5.03) M/mm3 Hgb (11.8-15.2) gm/dl Hct (35.5-45.6) % ABG pH (7.320-7.450) POC ABG pO2 (83-108) mmHg ABG Hemoglobin (12.0-17.5) ABG Sodium (136.0-145.0) mmol/L ABG Chloride (98-107) mmol/L ABG Glucose (65-95) mg/dL Sodium 133 L (137-145) mmol/L Potassium 5.2 H (3.6-5.0) mmol/L Chloride 93.3 L (98-107) mmol/L BUN 66 H (9-20) mg/dL Creatinine 4.1 H (0.8-1.3) mg/dL Glucose 102 H (75-100) mg/dL Calcium 7.2 L (8.4-10.2) mg/dL Direct Bilirubin 0.7 H (0-0.2) mg/dL AST 94 H (5-40) units/L ALT 60 H (7-56) units/L Total Protein 4.4 L (6.3-8.2) g/dL Albumin 1.9 L (3.9-5) g/dL Arterial Blood Glucose (65-95) mg/dL Arterial Blood Ionized Calcium (4.6-5.3) mg/dL Crossmatch HEART Score - HEART Score Troponin: Troponin T < 0.010 ng/mL (0.00-0.029) 06/17/20 12:33
--- NOTE | 2020-07-02 12:50 | XRay Report ---
CHEST 1 VIEW 07/02/2020 12:18 PM INDICATION / CLINICAL INFORMATION: pneumonia. COMPARISON: 06/27/2020 FINDINGS: SUPPORT DEVICES: Nasogastric tube descends into the stomach. HEART / MEDIASTINUM: Unchanged LUNGS / PLEURA: There are worsening bilateral pulmonary opacities. No pneumothorax. ADDITIONAL FINDINGS: No significant additional findings. IMPRESSION: 1. Interval worsening. Signer Name: Gerry Mckinney MD Signed: 07/02/2020 12:46 PM Workstation Name: [id number]
[2020-07-02] MEDS: NORepinephrine/NS 4 MG-250 ML 4 MG/250 ML BAG IV SCH (14:39)
[2020-07-02] MEDS: AMIODARONE 900 MG in DEXTROSE 5% IN WATER 482 ML IV SCH (20:42)
[2020-07-02] MEDS: LIP THERAPY VASELINE TP PRN (20:45)
[2020-07-02] MEDS: ACETAMINOPHEN 325 MG TAB PO PRN (20:46)
[2020-07-03] MEDS: fentaNYL DRIP Premix 2,000 MCG/100 ML BAG IV SCH ×4 (02:20→20:11)
[2020-07-03] MEDS: dilTIAZem 30 MG TAB PO SCH ×3 (05:25→18:33)
[2020-07-03] MEDS: METOCLOPRAMIDE 10 MG/2 ML INJ IV SCH ×3 (05:26→20:11)
[2020-07-03] MEDS: INSULIN REGULAR, HUMAN 100 UNITS/1 ML SUB-Q SCH ×4 (06:33→18:39)
[2020-07-03] MEDS: ACETAMINOPHEN 325 MG TAB PO PRN (09:16)
[2020-07-03] MEDS: CHOLECALCIFEROL (VIT D3) 1000 UNIT (25 mcg) TAB PO SCH (09:17)
[2020-07-03] MEDS: DOCUSATE SODIUM 100 MG/10 ML ORAL LIQD FEEDTUBE SCH ×2 (09:17→22:03)
[2020-07-03] MEDS: QUEtiapine 200 MG TAB PO SCH ×2 (09:17→22:03)
[2020-07-03] MEDS: FAMOTIDINE 20 MG/2 ML INJ IV SCH (09:17)
[2020-07-03] MEDS: ASCORBIC ACID 250 MG TAB PO SCH ×2 (09:17→22:03)
[2020-07-03] MEDS: POLYETHYLENE GLYCOL 3350 17 GM POWDER PO SCH (09:17)
[2020-07-03] MEDS: ZINC SULFATE 220 MG CAP PO SCH ×2 (09:17→22:03)
--- NOTE | 2020-07-03 09:43 | Progress Note ---
Assessment and Plan 60-year-old male respiratory failure on the ventilator has atrial fibrillation off of pressors try to be sedated with propofol. Not on oral anticoagulation secondary to anemia is on renal failure getting dialysis. Patient is 100% oxygen has maintained sinus rhythm we will continue IV amiodarone as they will try to decrease oxygenation to maintain sinus rhythm. Continue oral Cardizem. Patient maintained sinus rhythm in the a.m. we will stop IV amiodarone - Patient Problems (1) Anemia Current Visit: Yes Status: Acute (2) Acute renal failure Current Visit: Yes Status: Acute Qualifiers: Acute renal failure type: with acute tubular necrosis Qualified Code(s): N17.0 - Acute kidney failure with tubular necrosis (3) Acute respiratory failure with hypoxia Current Visit: Yes Status: Acute (4) Atrial fibrillation with rapid ventricular response Current Visit: Yes Status: Acute (5) COVID-19 Current Visit: Yes Status: Acute (6) Elevated LFTs Current Visit: Yes Status: Acute (7) Hyperkalemia Current Visit: Yes Status: Acute (8) Pneumonia due to COVID-19 virus Current Visit: Yes Status: Acute (9) Sepsis Current Visit: Yes Status: Acute Qualifiers: Severe sepsis acute organ dysfunction type: acute respiratory failure Severe sepsis shock status: with septic shock Subjective Date of service: 07/03/20 Principal diagnosis: ARF/Septic Shock/COVID-19 PNA, AF with RVR Interval history: Intubated sedated Objective Vital Signs Temp Pulse Pulse Resp BP Pulse Ox 07/03/20 08:00 92 H 25 H 110/49 91 07/03/20 07:45 92 H 26 H 119/49 91 07/03/20 07:35 90 124/52 91 07/03/20 07:30 93 H 27 H 124/52 91 07/03/20 07:15 91 H 25 H 121/49 92 07/03/20 07:00 100.1 F H 96 H 27 H 126/48 91 07/03/20 06:45 95 H 27 H 117/49 91 07/03/20 06:30 95 H 28 H 115/48 91 07/03/20 06:15 96 H 27 H 124/47 91 07/03/20 06:00 95 H 27 H 117/49 90 07/03/20 05:45 97 H 29 H 115/51 90 07/03/20 05:30 98 H 27 H 113/50 89 07/03/20 05:25 98 H 116/48 07/03/20 05:15 94 H 27 H 116/48 90 07/03/20 05:00 95 H 27 H 108/47 91 07/03/20 04:45 95 H 26 H 113/46 91 07/03/20 04:30 96 H 27 H 114/48 91 07/03/20 04:15 95 H 27 H 114/46 91 07/03/20 04:00 97 H 25 H 106/49 91 07/03/20 03:52 99 H 92 07/03/20 03:45 97 H 27 H 114/47 92 07/03/20 03:30 96 H 26 H 108/47 92 07/03/20 03:15 97 H 25 H 110/47 92 07/03/20 03:00 96 H 26 H 120/49 92 07/03/20 02:45 98 H 26 H 124/52 93 07/03/20 02:30 97 H 28 H 118/48 93 07/03/20 02:15 100 H 26 H 110/45 94 07/03/20 02:00 100 H 27 H 105/45 94 07/03/20 01:45 102 H 28 H 102/40 94 07/03/20 01:30 105 H 28 H 104/39 95 07/03/20 01:15 104 H 28 H 106/38 95 07/03/20 01:00 106 H 28 H 116/43 95 07/03/20 00:45 105 H 29 H 118/50 93 07/03/20 00:30 111 H 35 H 116/46 73 L 07/03/20 00:15 106 H 30 H 115/50 77 L 07/03/20 00:10 97 H 114/47 92 07/03/20 00:00 100.4 F H 121 H 30 H 106/46 76 L 07/02/20 23:45 128 H 29 H 115/47 83 L 07/02/20 23:30 122 H 23 86 07/02/20 23:15 114 H 29 H 118/50 84 07/02/20 23:02 118 H 117/51 07/02/20 23:00 114 H 22 117/51 88 07/02/20 22:45 101 H 25 H 113/52 90 07/02/20 22:30 120 H 29 H 119/58 93 20 22:21 114 H 26 H 112/58 93 07/02/20 22:15 108 H 20 112/58 93 07/02/20 22:00 112 H 22 102/54 91 20 21:59 109 H 07/02/20 21:47 104 H 23 112/50 94 20 21:45 108 H 22 112/50 93 20 21:30 102 H 20 107/52 93 07/02/20 21:15 109 H 14 114/54 93 07/02/20 21:00 120 H 22 112/50 92 07/02/20 20:45 106 H 20 118/50 92 07/02/20 20:42 116 H 118/50 92 07/02/20 20:30 105 H 22 112/47 88 07/02/20 20:15 121 H 20 121/55 77 L 07/02/20 20:00 100.8 F H 115 H 38 H 111/60 85 07/02/20 19:45 140 H 33 H 124/59 87 20 19:30 112 H 32 H 117/56 92 20 19:15 124 H 28 H 122/56 92 07/02/20 19:00 116 H 22 113/53 93 07/02/20 18:38 129 H 114/62 07/02/20 18:15 122 H 19 129/61 92 07/02/20 18:01 125 H 32 H 128/59 93 07/02/20 17:45 131 H 25 H 133/60 92 07/02/20 17:31 131 H 29 H 131/59 92 20 17:15 113 H 26 H 124/52 92 07/02/20 17:01 106 H 26 H 120/48 93 20 16:45 133 H 25 H 132/51 92 20 16:42 145 H 132/51 91 07/02/20 16:31 108 H 31 H 132/51 91 07/02/20 16:15 120 H 28 H 132/51 91 20 16:00 124 H 132 H 25 H 125/56 91 20 15:45 121 H 22 128/56 91 07/02/20 15:31 124 H 34 H 146/60 91 07/02/20 15:15 117 H 31 H 161/64 90 07/02/20 15:01 120 H 25 H 153/75 89 07/02/20 15:00 98.5 F 07/02/20 14:45 125 H 28 H 148/74 92 07/02/20 14:30 120 H 25 H 119/57 93 07/02/20 14:15 117 H 24 114/42 97 07/02/20 14:00 123 H 26 H 103/51 97 07/02/20 13:45 118 H 24 103/48 97 07/02/20 13:30 116 H 25 H 107/44 97 07/02/20 13:15 122 H 25 H 113/52 98 07/02/20 13:00 111 H 25 H 109/47 98 07/02/20 12:56 115 H 117/49 98 07/02/20 12:45 115 H 25 H 117/49 98 07/02/20 12:30 117 H 25 H 114/51 98 07/02/20 12:15 114 H 25 H 103/55 98 07/02/20 12:00 100.0 F H 106 H 25 H 117/53 98 07/02/20 11:45 126 H 25 H 116/56 98 07/02/20 11:30 121 H 25 H 126/56 97 07/02/20 11:23 110 H 112/55 07/02/20 11:15 118 H 25 H 112/55 97 07/02/20 11:00 102 H 25 H 129/47 96 07/02/20 10:45 115 H 25 H 129/47 96 07/02/20 10:31 135 H 30 H 114/61 96 07/02/20 10:15 128 H 16 146/71 96 07/02/20 10:01 123 H 26 H 161/71 96 07/02/20 09:45 122 H 25 H 157/66 95 - Physical Examination General: Other (intubated, lethargic) Neck: Positive: neck supple Cardiac: Positive: Reg Rate and Rhythm Lungs: Positive: Decreased Breath Sounds Neuro: Positive: Other (intubated, lethargic) Abdomen: Positive: Soft Skin: Negative: Rash, Wound Extremities: Present: upper extr. pulses, lower extr. pulses, +1 Edema - Labs and Meds Cardiac Enzymes 07/02/20 Range/Units 11:33 AST 94 H (5-40) units/L Comprehensive Metabolic Panel 07/02/20 07/02/20 Range/Units 11:33 11:33 Sodium 133 L (137-145) mmol/L Potassium 5.2 H (3.6-5.0) mmol/L Chloride 93.3 L (98-107) mmol/L Carbon Dioxide 24 (22-30) mmol/L BUN 66 H (9-20) mg/dL Creatinine 4.1 H (0.8-1.3) mg/dL Glucose 102 H (75-100) mg/dL Calcium 7.2 L (8.4-10.2) mg/dL Direct Bilirubin 0.7 H (0-0.2) mg/dL Indirect Bilirubin 0.1 mg/dL AST 94 H (5-40) units/L ALT 60 H (7-56) units/L Alkaline Phosphatase 80 (35-129) units/L Total Protein 4.4 L (6.3-8.2) g/dL Albumin 1.9 L (3.9-5) g/dL - Imaging and Cardiology EKG: report reviewed, image reviewed Echo: report reviewed (gail lv function ef55-60%) - Telemetry EKG Rhythm: Sinus Rhythm (Patient converted to sinus rhythm last night) - EKG Sinus rhythms and dysrhythmias: sinus tachycardia - Allied health notes Allied health notes reviewed: nursing
[2020-07-03 10:26] LABS: Hematocrit 21.4 % (35.5-45.6); Hemoglobin 7.3 gm/dl (11.8-15.2); Mean Corpuscular HGB Conc 34 % (32-34); Mean Corpuscular Volume 88 fl (84-94); Platelet Count 241 K/mm3 (140-440); Red Blood Count 2.44 M/mm3 (3.65-5.03); Red Cell Distribution Width 14.6 % (13.2-15.2)
[2020-07-03] MEDS ORDERED: SODIUM CHLORIDE 0.9% 100 ML IV PRN (11:11)
[2020-07-03] MEDS ORDERED: SODIUM BICARB 8.4% 50 MEQ/50 ML SYRINGE IV ONE (11:19)
[2020-07-03] MEDS: SODIUM POLYSTYRENE 15 GM/60 ML ORAL LIQD PO PRN (11:33)
--- NOTE | 2020-07-03 11:47 | Progress Note ---
Assessment and Plan - Patient Problems (1) GIRISH (acute kidney injury) Current Visit: Yes Status: Acute Plan to address problem: Acute kidney failure 2/2 prerenal azotemia versus acute tubular necrosis, patient without significant renal recovery, remains dialysis dependent. Labs showed significant hyperkalemia K >6, arranged HD today for correction of hyperkalemia. Kayexalate 30g ordered. (2) Severe sepsis with septic shock Current Visit: Yes Status: Acute Plan to address problem: Continue antibiotics per infectious disease oracle manufacturing consultant appropriately adjusted to the degree of renal function. Patient is off of vasopressors. (3) Hyperkalemia Current Visit: Yes Status: Acute Plan to address problem: additional HD today. cont 2g K renal diet (4) Metabolic acidosis Current Visit: Yes Status: Acute Plan to address problem: Acidosis improving with dialysis. (5) Acute respiratory failure with hypoxia Current Visit: Yes Status: Acute Plan to address problem: Continue respiratory management by pulmonary (6) Pneumonia due to COVID-19 virus Current Visit: Yes Status: Acute Plan to address problem: IV Dexamethasone Supplemental oxygen/Respiratory support as needed Proning as tolerated Remdesevir contra-indicated due to Kidney failure Prophylactic anticoagulation Trend inflammatory markers to assess disease progression and prognosis Subjective Date of service: 07/03/20 Principal diagnosis: ARF/Septic Shock/COVID-19 PNA, AF with RVR Interval history: Patient was not examined today due to the COVID-19 status to 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 I reviewed multidisciplinary notes and discussed with staff and physicians as needed. Patient is sedated on propofol and fentanyl. He is on anticoagulation with intravenous heparin. HD well tolerated yesterday with 1L UF. pt remains off vasopressors, on ventilator support with FiO2 increased to 100%, labs showed significant hyperkalemia > 6.2, HD arranged for today. Objective - Exam Narrative Exam: exam deferred d/t PPE preservation - Vital Signs Vital signs: Vital Signs - 12hr 07/02/20 07/03/20 07/03/20 23:45 00:00 00:10 Temperature 100.4 F H Pulse Rate 128 H 121 H 97 H Respiratory 29 H 30 H Rate Blood Pressure 115/47 106/46 114/47 O2 Sat by Pulse 83 L 76 L 92 Oximetry 07/03/20 07/03/20 07/03/20 00:15 00:30 00:45 Temperature Pulse Rate 106 H 111 H 105 H Respiratory 30 H 35 H 29 H Rate Blood Pressure 115/50 116/46 118/50 O2 Sat by Pulse 77 L 73 L 93 Oximetry 07/03/20 07/03/20 07/03/20 01:00 01:15 01:30 Temperature Pulse Rate 106 H 104 H 105 H Respiratory 28 H 28 H 28 H Rate Blood Pressure 116/43 106/38 104/39 O2 Sat by Pulse 95 95 95 Oximetry 07/03/20 07/03/20 07/03/20 01:45 02:00 02:15 Temperature Pulse Rate 102 H 100 H 100 H Respiratory 28 H 27 H 26 H Rate Blood Pressure 102/40 105/45 110/45 O2 Sat by Pulse 94 94 94 Oximetry 07/03/20 07/03/20 07/03/20 02:30 02:45 03:00 Temperature Pulse Rate 97 H 98 H 96 H Respiratory 28 H 26 H 26 H Rate Blood Pressure 118/48 124/52 120/49 O2 Sat by Pulse 93 93 92 Oximetry 07/03/20 07/03/20 07/03/20 03:15 03:30 03:45 Temperature Pulse Rate 97 H 96 H 97 H Respiratory 25 H 26 H 27 H Rate Blood Pressure 110/47 108/47 114/47 O2 Sat by Pulse 92 92 92 Oximetry 07/03/20 07/03/20 07/03/20 03:52 04:00 04:15 Temperature Pulse Rate 99 H 97 H 95 H Respiratory 25 H 27 H Rate Blood Pressure 106/49 114/46 O2 Sat by Pulse 92 91 91 Oximetry 07/03/20 07/03/20 07/03/20 04:30 04:45 05:00 Temperature Pulse Rate 96 H 95 H 95 H Respiratory 27 H 26 H 27 H Rate Blood Pressure 114/48 113/46 108/47 O2 Sat by Pulse 91 91 91 Oximetry 07/03/20 07/03/20 07/03/20 05:15 05:25 05:30 Temperature Pulse Rate 94 H 98 H 98 H Respiratory 27 H 27 H Rate Blood Pressure 116/48 116/48 113/50 O2 Sat by Pulse 90 89 Oximetry 07/03/20 07/03/20 07/03/20 05:45 06:00 06:15 Temperature Pulse Rate 97 H 95 H 96 H Respiratory 29 H 27 H 27 H Rate Blood Pressure 115/51 117/49 124/47 O2 Sat by Pulse 90 90 91 Oximetry 07/03/20 07/03/20 07/03/20 06:30 06:45 07:00 Temperature 100.1 F H Pulse Rate 95 H 95 H 96 H Respiratory 28 H 27 H 27 H Rate Blood Pressure 115/48 117/49 126/48 O2 Sat by Pulse 91 91 91 Oximetry 07/03/20 07/03/20 07/03/20 07:15 07:30 07:35 Temperature Pulse Rate 91 H 93 H 90 Respiratory 25 H 27 H Rate Blood Pressure 121/49 124/52 124/52 O2 Sat by Pulse 92 91 91 Oximetry 07/03/20 07/03/20 07/03/20 07:45 08:00 08:15 Temperature Pulse Rate 92 H 92 H 92 H Respiratory 26 H 25 H 26 H Rate Blood Pressure 119/49 110/49 107/50 O2 Sat by Pulse 91 91 91 Oximetry 07/03/20 07/03/20 07/03/20 08:30 08:45 09:01 Temperature Pulse Rate 92 H 91 H 91 H Respiratory 26 H 26 H 27 H Rate Blood Pressure 111/51 126/52 134/52 O2 Sat by Pulse 91 91 90 Oximetry 07/03/20 07/03/20 07/03/20 09:15 09:30 09:45 Temperature Pulse Rate 91 H 89 89 Respiratory 29 H 27 H 27 H Rate Blood Pressure 118/53 123/54 125/51 O2 Sat by Pulse 89 90 89 Oximetry 07/03/20 07/03/20 07/03/20 10:00 10:15 10:30 Temperature Pulse Rate 91 H 89 89 Respiratory 26 H 26 H 25 H Rate Blood Pressure 114/48 115/43 108/41 O2 Sat by Pulse 91 92 92 Oximetry 07/03/20 07/03/20 07/03/20 10:45 11:00 11:32 Temperature Pulse Rate 110 H 111 H 109 H Respiratory 25 H 22 Rate Blood Pressure 100/44 89/47 122/60 O2 Sat by Pulse 93 93 Oximetry - Lab 07/03/20 09:15 07/03/20 09:15 Most recent lab results ABG pH 7.399 (7.320-7.450) 07/03/20 03:54 Calcium 7.0 mg/dL (8.4-10.2) L 02/21/21 09:15 Phosphorus 9.40 mg/dL (2.5-4.5) H 06/30/20 03:50 Magnesium 2.70 mg/dL (1.7-2.3) H 06/18/20 20:33 Urine Creatinine 192.4 mg/dL (0.1-20.0) H 06/18/20 15:00 Urine Sodium 28 mmol/L 06/18/20 15:00 Medications & Allergies - Medications Allergies/Adverse Reactions: Allergies No Known Allergies Allergy (Unverified 06/17/20 14:24) Home Medications: Home Medications Medication Instructions Recorded Confirmed Last Taken Type Losartan/Hydrochlorothiazide 1 each PO QDAY 06/19/20 06/19/20 Unknown History [Losartan-Hctz 100-25 mg Tab] amLODIPine [Norvasc] 5 mg PO DAILY 06/19/20 06/19/20 Unknown History Active Medications: Generic Name Dose Route Start Last Admin Trade Name Freq PRN Reason Stop Dose Admin Acetaminophen 650 mg 06/17/20 14:17 07/03/20 09:16 Acetaminophen 325 Mg Tab PO 650 mg Q4H PRN Administration Pain MILD(1-3)/Fever >100.5/ROBERTS Lipase/Protease/Amylase 1 each 06/19/20 12:15 Lipase 10,500/Protease 25,000/Amylase 43,750 (Units) Dr Kulkarni FEEDTPOLY PRN PRN For Clogged Feeding Tube Ascorbic Acid 250 mg 06/17/20 22:00 07/03/20 09:17 Ascorbic Acid 250 Mg Tab PO 250 mg BID CONNOR Administration Cholecalciferol 1,000 unit 06/18/20 10:00 07/03/20 09:17 Cholecalciferol (Vit D3) 1000 Unit (25 Mcg) Tab PO 1,000 unit DAILY CONNOR Administration Diltiazem HCl 30 mg 07/02/20 12:00 07/03/20 11:32 Diltiazem 30 Mg Tab PO 30 mg Q6HR CONNOR Administration Docusate Sodium 100 mg 06/23/20 15:00 07/03/20 09:17 Docusate Sodium 100 Mg/10 Ml Oral Liqd FEEDTUBE 100 mg BID CONNOR Administration Famotidine 20 mg 06/20/20 11:00 07/03/20 09:17 Famotidine 20 Mg/2 Ml Inj IV 20 mg DAILY CONNOR Administration Fentanyl 50 mcg 06/18/20 01:02 06/28/20 04:32 Fentanyl 100 Mcg/2 Ml Inj IV 50 mcg Q10MIN PRN Administration ANALGESIA Heparin Sodium (Porcine) 5,000 unit 06/22/20 12:53 06/30/20 13:36 Heparin 10,000 Unit/1 Ml Vial IV 5,000 unit PAM PRN Administration hemodialysis Hydrophilic Ointment 1 applic 06/17/20 22:52 07/02/20 20:45 Lip Therapy Vaseline TP 1 applic Q2HR PRN Administration Dry Lips Norepinephrine 4 mg in 250 mls @ 7.5 mls/hr 06/18/20 00:00 07/02/20 14:39 Levophed Drip 4 Mg/Ns 250 Ml IV 2 mcg/min TITR CONNOR 7.5 mls/hr Administration Protocol 2 MCG/MIN Propofol 1,000 mg in 100 mls @ 3.402 mls/hr 06/18/20 01:00 07/03/20 03:48 Diprivan 10 Mg/Ml IV 15 mcg/kg/min TITR CONNOR 10.206 mls/hr Administration Protocol 5 MCG/KG/MIN Fentanyl Citrate 2,000 mcg in 100 mls @ 5.67 mls/hr 06/18/20 02:00 07/03/20 08:14 Fentanyl Drip Premix IV 3 mcg/kg/hr TITR CONNOR 17.01 mls/hr Administration Protocol 1 MCG/KG/HR Vasopressin 20 unit/ Sodium 101 mls @ 9.09 mls/hr 06/18/20 10:00 06/24/20 18:05 Chloride IV 0 units/min TITR CONNOR 0 mls/hr Titration Protocol 0.03 UNITS/MIN Sodium Chloride 500 mls @ 1 mls/hr 06/18/20 09:38 06/19/20 21:37 Nacl 0.9% 500 Ml IV 0 mls/hr DIRECT PRN Infusion ARTERIAL LINE FLUSH Sodium Chloride 100 mls @ 999 mls/hr 06/28/20 01:25 Nacl 0.9% IV PAM PRN Hypotension Amiodarone HCl 900 mg/ 500 mls @ 33.333 mls/hr 06/28/20 15:00 07/02/20 20:42 Dextrose IV 0.5 mg/min DIRECT CONNOR 16.667 mls/hr Administration Protocol 1 MG/MIN Sodium Chloride 100 mls @ 999 mls/hr 06/30/20 16:59 Nacl 0.9% IV PAM PRN Hypotension Sodium Chloride 100 mls @ 999 mls/hr 07/03/20 11:11 Nacl 0.9% IV PAM PRN Hypotension Insulin Human Regular 0 units 06/18/20 12:00 07/03/20 06:33 Insulin Regular, Human 100 Units/1 Ml SUB-Q Not Given Q6HR [facility] Protocol Lorazepam 1 mg 06/17/20 17:05 06/17/20 17:10 Lorazepam 2 Mg/Ml Vial IV 1 mg BID PRN Administration Anxiety Metoclopramide HCl 10 mg 06/28/20 13:00 07/03/20 05:26 Metoclopramide 10 Mg/2 Ml Inj IV 10 mg Q8H CONNOR Administration Multi-Ingred Cream/Lotion/Oil/Oint 1 applic 06/17/20 22:52 Mineral Oil/Petrolatum, White Ophth Oint 3.5 Gm OU Q4HR PRN Dry Eye(s) Ondansetron HCl 4 mg 06/17/20 14:17 Ondansetron 4 Mg/2 Ml Inj IV Q8H PRN Nausea And Vomiting Polyethylene Glycol 17 gm 06/23/20 15:00 07/03/20 09:17 Polyethylene Glycol 3350 17 Gm Powder PO 17 gm QDAY CONNOR Administration Quetiapine Fumarate 200 mg 06/28/20 13:00 07/03/20 09:17 Quetiapine 200 Mg Tab PO 200 mg BID CONNOR Administration Simple Syrup 15 ml 06/19/20 12:15 Simple Syrup 15 Ml FEEDTUBE PRN PRN Hypoglycemia Simple Syrup 30 ml 06/19/20 12:15 Simple Syrup 15 Ml FEEDTUBE PRN PRN Hypoglycemia Sodium Bicarbonate 325 mg 06/19/20 12:15 Sodium Bicarbonate 325 Mg Tab FEEDTUBE PRN PRN For Clogged Feeding Tube Sodium Chloride 10 ml 06/17/20 22:00 07/03/20 09:18 Sodium Chloride 0.9% 10 Ml Flush Syringe IV 10 ml BID CONNOR Administration Sodium Chloride 10 ml 06/17/20 14:17 Sodium Chloride 0.9% 10 Ml Flush Syringe IV PRN PRN LINE FLUSH Sodium Polystyrene Sulfonate 15 gm 07/03/20 11:19 07/03/20 11:33 Sodium Polystyrene 15 Gm/60 Ml Oral Liqd PO 15 gm Q6HR PRN Administration Hyperkalemia Zinc Sulfate 220 mg 06/17/20 22:00 07/03/20 09:17 Zinc Sulfate 220 Mg Cap PO 220 mg BID CONNOR Administration
--- NOTE | 2020-07-03 12:15 | XRay Report ---
CHEST 1 VIEW 07/03/2020 11:18 AM INDICATION / CLINICAL INFORMATION: SOB. COMPARISON: 07/02/2020 FINDINGS: SUPPORT DEVICES: Endotracheal tube tip projects approximately 2 cm above the marnie. Nasogastric tube descends into the stomach. HEART / MEDIASTINUM: Unchanged LUNGS / PLEURA: Mild worsening airspace opacities bilaterally. No pneumothorax. ADDITIONAL FINDINGS: No significant additional findings. IMPRESSION: 1. Interval worsening. Signer Name: Gerry Mckinney MD Signed: 07/03/2020 12:10 PM Workstation Name: [id number]
--- NOTE | 2020-07-03 12:29 | Progress Note ---
Assessment and Plan Acute hypoxemic respiratory failure due to COVID-19 Severe COVID infection Severe Sepsis with shock Bilateral pneumonia Acute kidney injury (GIRISH) with acute tubular necrosis (ATN) Elevated liver enzymes Obesity - discussed care plan at length with his family over the phone and all her questions were answered (RN was on the call) - repeat COVID-19 test positive - increased peep to 14 - reduced FiO2 to 90% - hyperkalemia cocktail administered - for HD/UF today - will resume dexamethasone re: worsening acidosis & continued positive status while trending serum inflamatory markers - will evaluate daily for resumption of anticoagulation - continue care as below otherwise; - HD/UF per nephrology prescription - continue daily SAT's & SBT's as tolerated - continue tube feeds and advance to goal rate as tolerated - continue HD/UF per nephrology team for toxin and volume clearance - continue bowel regimen - rate control per cardiology team for afib RVR - Continue to wean supplemental oxygen for O2 sats >92% - Monitor blood pressure closely while optimizing sedation,wean vasopressor support for MAP > 65 mmHg - Critical care prone positioning - VAP bundle addressed, aspiration precautions HOB >40 - continue lung protective strategies, permissive hypercapnic acceptable. - continue bronchodilators with pulmonary hygiene per RT - wean per pulmonary driven protocols otherwise - accuchecks with glycemic control per SSI (While critically ill target blood glucose of 140-180 mg/dL; avoid hypoglycemia) - sedation prn for target RASS -1 to -2 - continue enteral nutritional support at goal rate as tolerated - s/p antibiotics per ID recommendations - Monitor liver function test ,avoid hepatotoxic agents - azotemia per nephrology rec's - Avoid nephrotoxins, renally dose all medications, conservative fluid management - continue to avoid benzodiazepines, reduce the possibility of delirium, - prn analgesia per CPOT score - Maintenance of sleep-wake cycle, avoid delirium - Stress ulcer prophylaxis, Famotidine - PT/OT/ROM exercises - Mobility protocols for pressure ulcer prevention - CXR, ABG in am - CBC, CMP in am - Supportive transfusions to keep HgB >7g/dL - Monitor hemodynamics closely - continue other care per attending / other consultants COVID SPECIFIC INTERVENTIONS - continue steroids: Dexamethasone - continue with Remdesivir - monitor inflammatory markers - ferritin, D-dimer, CRP, LDH per facility protocol - continue anticoagulation per System Protocol based on d-dimer - continue contact and airborne isolation CONDITION: CRITICAL PROGNOSIS: GUARDED CODE STATUS: FULL CODE The high probability of a clinically significant, sudden or life-threatening deterioration of the [respiratory, cardiovascular, hematologic & neurologic] system(s) required my full and direct attention, intervention and personal management. The aggregate critical care time was [40] minutes without overlap. Time includes spent on; [x] Data Review and interpretation [x] Patient assessment and monitoring of vital signs [x] Documentation [x] Medication orders and management He was evaluated in the context of the global COVID-19 pandemic, which necessitated consideration that the patient might be at risk for infection with the virus that causes COVID-19. Institutional protocols and algorithms that pertain to the evaluation of patients at risk for COVID-19 are in a state of r apid change based on information released by regulatory bodies including the CDC and federal and state organizations. These policies and algorithms were followed during the patient's care in the ICU Please note that these policies, procedures and recommendations changed on a rapid basis. Subjective Date of service: 07/03/20 Principal diagnosis: ARF/Septic Shock/COVID-19 PNA, AF with RVR Interval history: Patient is seen today for: Ac hypoxemic respiratory failure; COVID-19; Severe Sepsis with shock; Zackery. pneumonia; GIRISH; Elevated liver enzymes; Obesity Seen and examined at bedside; 24hour events reviewed; nursing and respiratory care staff consulted; no adverse overnight events reported to me; resting in bed; remains on MVS; FiO2 up to 100% and peep up to 12 overnight; no emesdis or overt aspiration; remains sedated; no gross bleeding; + hyperkalemia today Objective Vital Signs - 12hr 07/03/20 07/03/20 07/03/20 00:30 00:45 01:00 Temperature Pulse Rate 111 H 105 H 106 H Respiratory 35 H 29 H 28 H Rate Blood Pressure 116/46 118/50 116/43 O2 Sat by Pulse 73 L 93 95 Oximetry 07/03/20 07/03/20 07/03/20 01:15 01:30 01:45 Temperature Pulse Rate 104 H 105 H 102 H Respiratory 28 H 28 H 28 H Rate Blood Pressure 106/38 104/39 102/40 O2 Sat by Pulse 95 95 94 Oximetry 07/03/20 07/03/20 07/03/20 02:00 02:15 02:30 Temperature Pulse Rate 100 H 100 H 97 H Respiratory 27 H 26 H 28 H Rate Blood Pressure 105/45 110/45 118/48 O2 Sat by Pulse 94 94 93 Oximetry 07/03/20 07/03/20 07/03/20 02:45 03:00 03:15 Temperature Pulse Rate 98 H 96 H 97 H Respiratory 26 H 26 H 25 H Rate Blood Pressure 124/52 120/49 110/47 O2 Sat by Pulse 93 92 92 Oximetry 07/03/20 07/03/20 07/03/20 03:30 03:45 03:52 Temperature Pulse Rate 96 H 97 H 99 H Respiratory 26 H 27 H Rate Blood Pressure 108/47 114/47 O2 Sat by Pulse 92 92 92 Oximetry 07/03/20 07/03/20 07/03/20 04:00 04:15 04:30 Temperature Pulse Rate 97 H 95 H 96 H Respiratory 25 H 27 H 27 H Rate Blood Pressure 106/49 114/46 114/48 O2 Sat by Pulse 91 91 91 Oximetry 07/03/20 07/03/20 07/03/20 04:45 05:00 05:15 Temperature Pulse Rate 95 H 95 H 94 H Respiratory 26 H 27 H 27 H Rate Blood Pressure 113/46 108/47 116/48 O2 Sat by Pulse 91 91 90 Oximetry 07/03/20 07/03/20 07/03/20 05:25 05:30 05:45 Temperature Pulse Rate 98 H 98 H 97 H Respiratory 27 H 29 H Rate Blood Pressure 116/48 113/50 115/51 O2 Sat by Pulse 89 90 Oximetry 07/03/20 07/03/20 07/03/20 06:00 06:15 06:30 Temperature Pulse Rate 95 H 96 H 95 H Respiratory 27 H 27 H 28 H Rate Blood Pressure 117/49 124/47 115/48 O2 Sat by Pulse 90 91 91 Oximetry 07/03/20 07/03/20 07/03/20 06:45 07:00 07:15 Temperature 100.1 F H Pulse Rate 95 H 96 H 91 H Respiratory 27 H 27 H 25 H Rate Blood Pressure 117/49 126/48 121/49 O2 Sat by Pulse 91 91 92 Oximetry 07/03/20 07/03/20 07/03/20 07:30 07:35 07:45 Temperature Pulse Rate 93 H 90 92 H Respiratory 27 H 26 H Rate Blood Pressure 124/52 124/52 119/49 O2 Sat by Pulse 91 91 91 Oximetry 07/03/20 07/03/20 07/03/20 08:00 08:15 08:30 Temperature Pulse Rate 92 H 92 H 92 H Respiratory 25 H 26 H 26 H Rate Blood Pressure 110/49 107/50 111/51 O2 Sat by Pulse 91 91 91 Oximetry 07/03/20 07/03/20 07/03/20 08:45 09:01 09:15 Temperature Pulse Rate 91 H 91 H 91 H Respiratory 26 H 27 H 29 H Rate Blood Pressure 126/52 134/52 118/53 O2 Sat by Pulse 91 90 89 Oximetry 07/03/20 07/03/20 07/03/20 09:30 09:45 10:00 Temperature Pulse Rate 89 89 91 H Respiratory 27 H 27 H 26 H Rate Blood Pressure 123/54 125/51 114/48 O2 Sat by Pulse 90 89 91 Oximetry 07/03/20 07/03/20 07/03/20 10:15 10:30 10:45 Temperature Pulse Rate 89 89 110 H Respiratory 26 H 25 H 25 H Rate Blood Pressure 115/43 108/41 100/44 O2 Sat by Pulse 92 92 93 Oximetry 07/03/20 07/03/20 07/03/20 11:00 11:15 11:31 Temperature Pulse Rate 111 H 111 H 107 H Respiratory 22 23 21 Rate Blood Pressure 89/47 81/45 122/60 O2 Sat by Pulse 93 94 93 Oximetry 07/03/20 07/03/20 07/03/20 11:32 11:45 12:00 Temperature 98.4 F Pulse Rate 109 H 113 H 105 H Respiratory 22 22 Rate Blood Pressure 122/60 109/52 105/46 O2 Sat by Pulse 94 95 Oximetry 07/03/20 07/03/20 12:12 12:15 Temperature Pulse Rate 113 H 113 H Respiratory 22 Rate Blood Pressure 105/46 101/45 O2 Sat by Pulse 94 96 Oximetry Constitutional: appears uncomfortable, other (morbidly obese, atraumatic, normocephalic, mild resp distress, orally intuabted) Eyes: non-icteric ENT: oropharynx moist, other (ETT 24 cm TROY) Neck: supple, no lymphadenopathy, other (Large , short neck) Effort: mildly labored Ascultation: Bilateral: diminished breath sounds, rhonchi (scant) Percussion: Bilateral: not dull Cardiovascular: irregular rhythm, other (S1,S2) Gastrointestinal: normoactive bowel sounds, non-distended (protuberant), other (OG Tube) Integumentary: rash, other (Femoral CVC, Newell catheter) Extremities: no edema, pink and warm, pulses normal, no ischemia or petechiae, edema (trace to 1+) Neurologic: non-focal exam (grossly), pupils equal and round, other (unable to assess, sedated) Psychiatric: other (unable to assess, sedated) CBC and BMP: 07/03/20 09:15 07/03/20 09:15 ABG, PT/INR, D-dimer: ABG ABG pH 7.399 (7.320-7.450) 07/03/20 03:54 POC ABG pCO2 39.6 mmHg (32.0-48.0) 07/03/20 03:54 POC ABG pO2 66.1 mmHg (83-108) L 07/03/20 03:54 POC ABG HCO3 23.9 07/03/20 03:54 PT/INR, D-dimer PT 17.4 Sec. (12.2-14.9) H 06/26/20 05:47 INR 1.44 (0.87-1.13) H 06/26/20 05:47 D-Dimer 939.89 ng/mlDDU (0-234) H 06/17/20 14:48 Abnormal lab findings: Abnormal Labs 06/17/20 06/17/20 06/17/20 12:33 12:33 12:33 WBC 19.5 H RBC 5.18 H Hgb 15.5 H Hct RDW Lymph % (Auto) 3.8 L Lymph # (Auto) 0.7 L [place] # (Auto) Seg Neuts % (Manual) 99.0 H Lymphocytes % (Manual) 1.0 L Nucleated RBC % Seg Neutrophils # 18.2 H Seg Neutrophils # Man 19.3 H Lymphocytes # (Manual) 0.2 L Monocytes # (Manual) PT 16.5 H INR 1.33 H APTT D-Dimer 1025.04 H Heparin Anti-Xa Level ABG pH POC ABG pCO2 POC ABG pO2 ABG Hemoglobin ABG Oxyhemoglobin ABG Sodium ABG Potassium ABG Chloride ABG Glucose Carboxyhemoglobin Sodium 130 L Potassium 3.4 L Chloride 95.0 L Carbon Dioxide BUN 21 H Creatinine Glucose 137 H POC Glucose Lactic Acid Calcium 7.9 L Phosphorus Magnesium Ferritin Direct Bilirubin AST 84 H ALT 67 H Lactate Dehydrogenase 437 H Total Creatine Kinase 310 H C-Reactive Protein 27.90 H Total Protein Albumin 2.9 L Triglycerides Arterial Blood Glucose Arterial Blood Ionized Calcium Urine Creatinine Urine Chloride Vancomycin Trough Coronavirus (PCR) Crossmatch 06/17/20 06/17/20 06/17/20 12:33 12:33 14:48 WBC RBC Hgb Hct RDW Lymph % (Auto) Lymph # (Auto) [place] # (Auto) Seg Neuts % (Manual) Lymphocytes % (Manual) Nucleated RBC % Seg Neutrophils # Seg Neutrophils # Man Lymphocytes # (Manual) Monocytes # (Manual) PT INR APTT D-Dimer Heparin Anti-Xa Level ABG pH POC ABG pCO2 POC ABG pO2 ABG Hemoglobin ABG Oxyhemoglobin ABG Sodium ABG Potassium ABG Chloride ABG Glucose Carboxyhemoglobin Sodium Potassium Chloride Carbon Dioxide BUN Creatinine Glucose POC Glucose Lactic Acid 2.50 H* 2.20 H* Calcium Phosphorus Magnesium Ferritin 2297.0 H Direct Bilirubin AST ALT Lactate Dehydrogenase Total Creatine Kinase C-Reactive Protein Total Protein Albumin Triglycerides Arterial Blood Glucose Arterial Blood Ionized Calcium Urine Creatinine Urine Chloride Vancomycin Trough Coronavirus (PCR) Crossmatch 06/17/20 06/17/20 06/17/20 14:48 14:48 14:48 WBC RBC Hgb Hct RDW Lymph % (Auto) Lymph # (Auto) [place] # (Auto) Seg Neuts % (Manual) Lymphocytes % (Manual) Nucleated RBC % Seg Neutrophils # Seg Neutrophils # Man Lymphocytes # (Manual) Monocytes # (Manual) PT INR APTT D-Dimer 939.89 H Heparin Anti-Xa Level ABG pH POC ABG pCO2 POC ABG pO2 ABG Hemoglobin ABG Oxyhemoglobin ABG Sodium ABG Potassium ABG Chloride ABG Glucose Carboxyhemoglobin Sodium Potassium Chloride Carbon Dioxide BUN Creatinine Glucose 141 H POC Glucose Lactic Acid Calcium Phosphorus Magnesium Ferritin > 2000.0 H Direct Bilirubin AST ALT Lactate Dehydrogenase 503 H Total Creatine Kinase C-Reactive Protein 24.70 H Total Protein Albumin Triglycerides Arterial Blood Glucose Arterial Blood Ionized Calcium Urine Creatinine Urine Chloride Vancomycin Trough Coronavirus (PCR) Crossmatch 06/17/20 06/17/20 06/17/20 16:54 19:39 23:43 WBC RBC Hgb Hct RDW Lymph % (Auto) Lymph # (Auto) [place] # (Auto) Seg Neuts % (Manual) Lymphocytes % (Manual) Nucleated RBC % Seg Neutrophils # Seg Neutrophils # Man Lymphocytes # (Manual) Monocytes # (Manual) PT INR APTT D-Dimer Heparin Anti-Xa Level ABG pH 7.571 H POC ABG pCO2 24.3 L POC ABG pO2 41.6 L ABG Hemoglobin ABG Oxyhemoglobin 84.0 L ABG Sodium 131.0 L ABG Potassium ABG Chloride ABG Glucose 163 H Carboxyhemoglobin Sodium Potassium Chloride Carbon Dioxide BUN Creatinine Glucose POC Glucose 185 H Lactic Acid 2.10 H* Calcium Phosphorus Magnesium Ferritin Direct Bilirubin AST ALT Lactate Dehydrogenase Total Creatine Kinase C-Reactive Protein Total Protein Albumin Triglycerides Arterial Blood Glucose 163 H Arterial Blood Ionized Calcium 4.4 L Urine Creatinine Urine Chloride Vancomycin Trough Coronavirus (PCR) Crossmatch 06/18/20 06/18/20 06/18/20 00:17 00:23 03:55 WBC RBC Hgb Hct RDW Lymph % (Auto) Lymph # (Auto) [place] # (Auto) Seg Neuts % (Manual) Lymphocytes % (Manual) Nucleated RBC % Seg Neutrophils # Seg Neutrophils # Man Lymphocytes # (Manual) Monocytes # (Manual) PT INR APTT D-Dimer Heparin Anti-Xa Level ABG pH POC ABG pCO2 POC ABG pO2 56.5 L 48.3 L ABG Hemoglobin ABG Oxyhemoglobin 86.3 L 81.7 L ABG Sodium 132.9 L 131.0 L ABG Potassium ABG Chloride ABG Glucose 189 H 161 H Carboxyhemoglobin 0.4 L Sodium Potassium Chloride Carbon Dioxide BUN Creatinine Glucose POC Glucose Lactic Acid 3.80 H* Calcium Phosphorus Magnesium Ferritin Direct Bilirubin AST ALT Lactate Dehydrogenase Total Creatine Kinase C-Reactive Protein Total Protein Albumin Triglycerides Arterial Blood Glucose 189 H 161 H Arterial Blood Ionized Calcium 4.3 L 4.2 L Urine Creatinine Urine Chloride Vancomycin Trough Coronavirus (PCR) Crossmatch 06/18/20 06/18/20 06/18/20 05:39 05:39 05:39 WBC 26.2 H RBC Hgb Hct RDW Lymph % (Auto) Lymph # (Auto) [place] # (Auto) Seg Neuts % (Manual) 90.0 H Lymphocytes % (Manual) 5.0 L Nucleated RBC % Seg Neutrophils # Seg Neutrophils # Man 23.6 H Lymphocytes # (Manual) Monocytes # (Manual) 1.3 H PT INR APTT D-Dimer Heparin Anti-Xa Level ABG pH POC ABG pCO2 POC ABG pO2 ABG Hemoglobin ABG Oxyhemoglobin ABG Sodium ABG Potassium ABG Chloride ABG Glucose Carboxyhemoglobin Sodium 135 L Potassium Chloride 97.5 L Carbon Dioxide 21 L BUN 39 H Creatinine 1.7 H D Glucose 168 H POC Glucose Lactic Acid 3.40 H* Calcium 7.2 L Phosphorus Magnesium Ferritin Direct Bilirubin AST ALT Lactate Dehydrogenase Total Creatine Kinase C-Reactive Protein Total Protein Albumin Triglycerides Arterial Blood Glucose Arterial Blood Ionized Calcium Urine Creatinine Urine Chloride Vancomycin Trough Coronavirus (PCR) Crossmatch 06/18/20 06/18/20 06/18/20 07:24 09:00 10:10 WBC RBC Hgb Hct RDW Lymph % (Auto) Lymph # (Auto) [place] # (Auto) Seg Neuts % (Manual) Lymphocytes % (Manual) Nucleated RBC % Seg Neutrophils # Seg Neutrophils # Man Lymphocytes # (Manual) Monocytes # (Manual) PT INR APTT D-Dimer Heparin Anti-Xa Level ABG pH POC ABG pCO2 POC ABG pO2 ABG Hemoglobin ABG Oxyhemoglobin ABG Sodium ABG Potassium ABG Chloride ABG Glucose Carboxyhemoglobin Sodium Potassium Chloride Carbon Dioxide BUN Creatinine Glucose POC Glucose Lactic Acid 2.90 H* 3.20 H* Calcium Phosphorus Magnesium Ferritin Direct Bilirubin AST ALT Lactate Dehydrogenase Total Creatine Kinase C-Reactive Protein Total Protein Albumin Triglycerides Arterial Blood Glucose Arterial Blood Ionized Calcium Urine Creatinine Urine Chloride Vancomycin Trough Coronavirus (PCR) Positive A Crossmatch 06/18/20 06/18/20 06/18/20 11:58 14:43 15:00 WBC RBC Hgb Hct RDW Lymph % (Auto) Lymph # (Auto) [place] # (Auto) Seg Neuts % (Manual) Lymphocytes % (Manual) Nucleated RBC % Seg Neutrophils # Seg Neutrophils # Man Lymphocytes # (Manual) Monocytes # (Manual) PT INR APTT D-Dimer Heparin Anti-Xa Level ABG pH 7.303 L POC ABG pCO2 POC ABG pO2 82.3 L ABG Hemoglobin ABG Oxyhemoglobin ABG Sodium 135.3 L ABG Potassium ABG Chloride ABG Glucose 215 H Carboxyhemoglobin 0.3 L Sodium Potassium Chloride Carbon Dioxide BUN Creatinine Glucose POC Glucose 209 H Lactic Acid Calcium Phosphorus Magnesium Ferritin Direct Bilirubin AST ALT Lactate Dehydrogenase Total Creatine Kinase C-Reactive Protein Total Protein Albumin Triglycerides Arterial Blood Glucose 215 H Arterial Blood Ionized Calcium 4.2 L Urine Creatinine 192.4 H Urine Chloride 31.1 L Vancomycin Trough Coronavirus (PCR) Crossmatch 06/18/20 06/18/20 06/18/20 17:16 19:44 20:33 WBC RBC Hgb Hct RDW Lymph % (Auto) Lymph # (Auto) [place] # (Auto) Seg Neuts % (Manual) Lymphocytes % (Manual) Nucleated RBC % Seg Neutrophils # Seg Neutrophils # Man Lymphocytes # (Manual) Monocytes # (Manual) PT INR APTT D-Dimer Heparin Anti-Xa Level ABG pH POC ABG pCO2 POC ABG pO2 ABG Hemoglobin ABG Oxyhemoglobin ABG Sodium ABG Potassium ABG Chloride ABG Glucose Carboxyhemoglobin Sodium Potassium Chloride Carbon Dioxide BUN Creatinine Glucose POC Glucose 182 H Lactic Acid 3.00 H* Calcium Phosphorus Magnesium 2.70 H Ferritin Direct Bilirubin AST ALT Lactate Dehydrogenase Total Creatine Kinase C-Reactive Protein Total Protein Albumin Triglycerides Arterial Blood Glucose Arterial Blood Ionized Calcium Urine Creatinine Urine Chloride Vancomycin Trough Coronavirus (PCR) Crossmatch 06/18/20 06/19/20 06/19/20 23:43 04:00 04:00 WBC 31.6 H RBC Hgb Hct RDW Lymph % (Auto) Lymph # (Auto) [place] # (Auto) Seg Neuts % (Manual) 98.0 H Lymphocytes % (Manual) 0.5 L Nucleated RBC % Seg Neutrophils # Seg Neutrophils # Man 31.0 H Lymphocytes # (Manual) 0.2 L Monocytes # (Manual) PT INR APTT D-Dimer Heparin Anti-Xa Level ABG pH POC ABG pCO2 POC ABG pO2 ABG Hemoglobin ABG Oxyhemoglobin ABG Sodium ABG Potassium ABG Chloride ABG Glucose Carboxyhemoglobin Sodium Potassium Chloride Carbon Dioxide BUN 56 H Creatinine 1.6 H Glucose 176 H POC Glucose 149 H Lactic Acid Calcium 7.0 L Phosphorus Magnesium Ferritin Direct Bilirubin AST 244 H ALT 159 H Lactate Dehydrogenase Total Creatine Kinase C-Reactive Protein Total Protein 4.9 L D Albumin 2.5 L Triglycerides Arterial Blood Glucose Arterial Blood Ionized Calcium Urine Creatinine Urine Chloride Vancomycin Trough Coronavirus (PCR) Crossmatch 06/19/20 06/19/20 06/19/20 04:00 05:44 11:42 WBC RBC Hgb Hct RDW Lymph % (Auto) Lymph # (Auto) [place] # (Auto) Seg Neuts % (Manual) Lymphocytes % (Manual) Nucleated RBC % Seg Neutrophils # Seg Neutrophils # Man Lymphocytes # (Manual) Monocytes # (Manual) PT INR APTT D-Dimer Heparin Anti-Xa Level ABG pH 7.265 L POC ABG pCO2 51.8 H POC ABG pO2 65.1 L ABG Hemoglobin ABG Oxyhemoglobin ABG Sodium ABG Potassium ABG Chloride ABG Glucose 184 H Carboxyhemoglobin Sodium Potassium Chloride Carbon Dioxide BUN Creatinine Glucose POC Glucose 156 H 191 H Lactic Acid Calcium Phosphorus Magnesium Ferritin Direct Bilirubin AST ALT Lactate Dehydrogenase Total Creatine Kinase C-Reactive Protein Total Protein Albumin Triglycerides Arterial Blood Glucose 184 H Arterial Blood Ionized Calcium 4.3 L Urine Creatinine Urine Chloride Vancomycin Trough Coronavirus (PCR) Crossmatch 06/19/20 06/19/20 06/19/20 12:30 17:16 18:36 WBC RBC Hgb Hct RDW Lymph % (Auto) Lymph # (Auto) [place] # (Auto) Seg Neuts % (Manual) Lymphocytes % (Manual) Nucleated RBC % Seg Neutrophils # Seg Neutrophils # Man Lymphocytes # (Manual) Monocytes # (Manual) PT 16.4 H INR 1.32 H APTT D-Dimer Heparin Anti-Xa Level ABG pH 7.088 L POC ABG pCO2 78.1 H POC ABG pO2 208.3 H ABG Hemoglobin ABG Oxyhemoglobin 98.3 H ABG Sodium ABG Potassium 5.0 H ABG Chloride ABG Glucose 182 H Carboxyhemoglobin 0.4 L Sodium Potassium Chloride Carbon Dioxide BUN Creatinine Glucose POC Glucose 154 H Lactic Acid Calcium Phosphorus Magnesium Ferritin Direct Bilirubin AST ALT Lactate Dehydrogenase Total Creatine Kinase C-Reactive Protein Total Protein Albumin Triglycerides Arterial Blood Glucose 182 H Arterial Blood Ionized Calcium 4.3 L Urine Creatinine Urine Chloride Vancomycin Trough Coronavirus (PCR) Crossmatch 06/19/20 06/20/20 06/20/20 23:32 03:00 05:19 WBC RBC Hgb Hct RDW Lymph % (Auto) Lymph # (Auto) [place] # (Auto) Seg Neuts % (Manual) Lymphocytes % (Manual) Nucleated RBC % Seg Neutrophils # Seg Neutrophils # Man Lymphocytes # (Manual) Monocytes # (Manual) PT INR APTT D-Dimer Heparin Anti-Xa Level 0.77 H ABG pH POC ABG pCO2 POC ABG pO2 ABG Hemoglobin ABG Oxyhemoglobin ABG Sodium ABG Potassium ABG Chloride ABG Glucose Carboxyhemoglobin Sodium Potassium Chloride Carbon Dioxide BUN Creatinine Glucose POC Glucose 201 H 190 H Lactic Acid Calcium Phosphorus Magnesium Ferritin Direct Bilirubin AST ALT Lactate Dehydrogenase Total Creatine Kinase C-Reactive Protein Total Protein Albumin Triglycerides Arterial Blood Glucose Arterial Blood Ionized Calcium Urine Creatinine Urine Chloride Vancomycin Trough Coronavirus (PCR) Crossmatch 06/20/20 06/20/20 06/20/20 08:25 08:25 11:36 WBC RBC Hgb Hct RDW Lymph % (Auto) Lymph # (Auto) [place] # (Auto) Seg Neuts % (Manual) Lymphocytes % (Manual) Nucleated RBC % Seg Neutrophils # Seg Neutrophils # Man Lymphocytes # (Manual) Monocytes # (Manual) PT INR APTT D-Dimer Heparin Anti-Xa Level ABG pH POC ABG pCO2 POC ABG pO2 ABG Hemoglobin ABG Oxyhemoglobin ABG Sodium ABG Potassium ABG Chloride ABG Glucose Carboxyhemoglobin Sodium 135 L Potassium 5.4 H Chloride 109.2 H Carbon Dioxide 19 L BUN 68 H Creatinine 2.5 H D Glucose 201 H POC Glucose 184 H Lactic Acid Calcium 5.5 L* D Phosphorus Magnesium Ferritin Direct Bilirubin AST 123 H ALT 86 H Lactate Dehydrogenase Total Creatine Kinase C-Reactive Protein Total Protein 4.6 L Albumin 1.5 L Triglycerides Arterial Blood Glucose Arterial Blood Ionized Calcium Urine Creatinine Urine Chloride Vancomycin Trough 22.7 H Coronavirus (PCR) Crossmatch 06/20/20 06/20/20 06/20/20 11:40 17:28 20:00 WBC RBC Hgb Hct RDW Lymph % (Auto) Lymph # (Auto) [place] # (Auto) Seg Neuts % (Manual) Lymphocytes % (Manual) Nucleated RBC % Seg Neutrophils # Seg Neutrophils # Man Lymphocytes # (Manual) Monocytes # (Manual) PT INR APTT D-Dimer Heparin Anti-Xa Level 0.89 H ABG pH 7.099 L POC ABG pCO2 61.1 H POC ABG pO2 ABG Hemoglobin ABG Oxyhemoglobin ABG Sodium ABG Potassium 5.0 H ABG Chloride 111.0 H ABG Glucose 200 H Carboxyhemoglobin 0.4 L Sodium Potassium Chloride Carbon Dioxide BUN Creatinine Glucose POC Glucose 165 H Lactic Acid Calcium Phosphorus Magnesium Ferritin Direct Bilirubin AST ALT Lactate Dehydrogenase Total Creatine Kinase C-Reactive Protein Total Protein Albumin Triglycerides Arterial Blood Glucose 200 H Arterial Blood Ionized Calcium 4.2 L Urine Creatinine Urine Chloride Vancomycin Trough Coronavirus (PCR) Crossmatch 06/20/20 06/21/20 06/21/20 23:29 05:00 05:20 WBC RBC Hgb Hct RDW Lymph % (Auto) Lymph # (Auto) [place] # (Auto) Seg Neuts % (Manual) Lymphocytes % (Manual) Nucleated RBC % Seg Neutrophils # Seg Neutrophils # Man Lymphocytes # (Manual) Monocytes # (Manual) PT INR APTT D-Dimer Heparin Anti-Xa Level ABG pH POC ABG pCO2 POC ABG pO2 ABG Hemoglobin ABG Oxyhemoglobin ABG Sodium ABG Potassium ABG Chloride ABG Glucose Carboxyhemoglobin Sodium Potassium Chloride 112.0 H Carbon Dioxide 20 L BUN 92 H Creatinine 3.9 H D Glucose 214 H POC Glucose 145 H 191 H Lactic Acid Calcium 6.5 L D Phosphorus Magnesium Ferritin Direct Bilirubin AST 98 H ALT 84 H Lactate Dehydrogenase Total Creatine Kinase C-Reactive Protein Total Protein 4.6 L Albumin 2.1 L Triglycerides 180 H Arterial Blood Glucose Arterial Blood Ionized Calcium Urine Creatinine Urine Chloride Vancomycin Trough Coronavirus (PCR) Crossmatch 06/21/20 06/21/20 06/21/20 08:56 11:12 12:43 WBC RBC Hgb Hct RDW Lymph % (Auto) Lymph # (Auto) [place] # (Auto) Seg Neuts % (Manual) Lymphocytes % (Manual) Nucleated RBC % Seg Neutrophils # Seg Neutrophils # Man Lymphocytes # (Manual) Monocytes # (Manual) PT INR APTT D-Dimer Heparin Anti-Xa Level 0.28 L ABG pH 7.184 L POC ABG pCO2 48.3 H POC ABG pO2 172.1 H ABG Hemoglobin ABG Oxyhemoglobin 98.7 H ABG Sodium ABG Potassium 4.9 H ABG Chloride 112.0 H ABG Glucose 196 H Carboxyhemoglobin 0.2 L Sodium Potassium Chloride Carbon Dioxide BUN Creatinine Glucose POC Glucose 177 H Lactic Acid Calcium Phosphorus Magnesium Ferritin Direct Bilirubin AST ALT Lactate Dehydrogenase Total Creatine Kinase C-Reactive Protein Total Protein Albumin Triglycerides Arterial Blood Glucose 196 H Arterial Blood Ionized Calcium 4.1 L Urine Creatinine Urine Chloride Vancomycin Trough Coronavirus (PCR) Crossmatch 06/21/20 06/21/20 06/22/20 16:31 Unknown 00:12 WBC RBC Hgb Hct RDW Lymph % (Auto) Lymph # (Auto) [place] # (Auto) Seg Neuts % (Manual) Lymphocytes % (Manual) Nucleated RBC % Seg Neutrophils # Seg Neutrophils # Man Lymphocytes # (Manual) Monocytes # (Manual) PT INR APTT D-Dimer Heparin Anti-Xa Level 0.78 H ABG pH POC ABG pCO2 POC ABG pO2 ABG Hemoglobin ABG Oxyhemoglobin ABG Sodium ABG Potassium ABG Chloride ABG Glucose Carboxyhemoglobin Sodium Potassium Chloride Carbon Dioxide BUN Creatinine Glucose POC Glucose 150 H 173 H Lactic Acid Calcium Phosphorus Magnesium Ferritin Direct Bilirubin AST ALT Lactate Dehydrogenase Total Creatine Kinase C-Reactive Protein Total Protein Albumin Triglycerides Arterial Blood Glucose Arterial Blood Ionized Calcium Urine Creatinine Urine Chloride Vancomycin Trough Coronavirus (PCR) Crossmatch 06/22/20 06/22/20 06/22/20 04:00 05:04 05:30 WBC 33.9 H RBC Hgb 11.7 L Hct 35.2 L RDW 15.8 H Lymph % (Auto) Lymph # (Auto) [place] # (Auto) Seg Neuts % (Manual) 93.0 H Lymphocytes % (Manual) 5.0 L Nucleated RBC % Seg Neutrophils # Seg Neutrophils # Man 31.5 H Lymphocytes # (Manual) Monocytes # (Manual) PT INR APTT D-Dimer Heparin Anti-Xa Level ABG pH 7.169 L POC ABG pCO2 POC ABG pO2 ABG Hemoglobin ABG Oxyhemoglobin ABG Sodium ABG Potassium 5.1 H ABG Chloride 112.0 H ABG Glucose 186 H Carboxyhemoglobin 0.3 L Sodium Potassium Chloride Carbon Dioxide BUN Creatinine Glucose POC Glucose 161 H Lactic Acid Calcium Phosphorus Magnesium Ferritin Direct Bilirubin AST ALT Lactate Dehydrogenase Total Creatine Kinase C-Reactive Protein Total Protein Albumin Triglycerides Arterial Blood Glucose 186 H Arterial Blood Ionized Calcium 4.1 L Urine Creatinine Urine Chloride Vancomycin Trough Coronavirus (PCR) Crossmatch 06/22/20 06/22/20 06/22/20 05:30 11:39 13:27 WBC RBC Hgb Hct RDW Lymph % (Auto) Lymph # (Auto) [place] # (Auto) Seg Neuts % (Manual) Lymphocytes % (Manual) Nucleated RBC % Seg Neutrophils # Seg Neutrophils # Man Lymphocytes # (Manual) Monocytes # (Manual) PT INR APTT D-Dimer Heparin Anti-Xa Level ABG pH POC ABG pCO2 POC ABG pO2 ABG Hemoglobin ABG Oxyhemoglobin ABG Sodium ABG Potassium ABG Chloride ABG Glucose Carboxyhemoglobin Sodium Potassium 5.7 H Chloride 111.3 H Carbon Dioxide 18 L BUN 112 H Creatinine 5.0 H Glucose 173 H POC Glucose 172 H 176 H Lactic Acid Calcium 6.7 L Phosphorus Magnesium Ferritin Direct Bilirubin AST ALT Lactate Dehydrogenase Total Creatine Kinase C-Reactive Protein Total Protein Albumin Triglycerides Arterial Blood Glucose Arterial Blood Ionized Calcium Urine Creatinine Urine Chloride Vancomycin Trough Coronavirus (PCR) Crossmatch 06/22/20 06/22/20 06/22/20 14:37 17:00 17:40 WBC RBC Hgb Hct RDW Lymph % (Auto) Lymph # (Auto) [place] # (Auto) Seg Neuts % (Manual) Lymphocytes % (Manual) Nucleated RBC % Seg Neutrophils # Seg Neutrophils # Man Lymphocytes # (Manual) Monocytes # (Manual) PT INR APTT D-Dimer Heparin Anti-Xa Level 1.32 H ABG pH POC ABG pCO2 POC ABG pO2 ABG Hemoglobin ABG Oxyhemoglobin ABG Sodium ABG Potassium ABG Chloride ABG Glucose Carboxyhemoglobin Sodium Potassium Chloride Carbon Dioxide BUN Creatinine Glucose POC Glucose 171 H Lactic Acid Calcium Phosphorus Magnesium Ferritin Direct Bilirubin AST ALT Lactate Dehydrogenase Total Creatine Kinase C-Reactive Protein 5.30 H Total Protein Albumin Triglycerides Arterial Blood Glucose Arterial Blood Ionized Calcium Urine Creatinine Urine Chloride Vancomycin Trough Coronavirus (PCR) Crossmatch 06/22/20 06/23/20 06/23/20 23:36 02:13 02:41 WBC RBC Hgb Hct RDW Lymph % (Auto) Lymph # (Auto) [place] # (Auto) Seg Neuts % (Manual) Lymphocytes % (Manual) Nucleated RBC % Seg Neutrophils # Seg Neutrophils # Man Lymphocytes # (Manual) Monocytes # (Manual) PT INR APTT D-Dimer Heparin Anti-Xa Level 0.21 L ABG pH 7.318 L POC ABG pCO2 POC ABG pO2 157.5 H ABG Hemoglobin ABG Oxyhemoglobin ABG Sodium 135.6 L ABG Potassium 4.6 H ABG Chloride 110.0 H ABG Glucose 169 H Carboxyhemoglobin Sodium Potassium Chloride Carbon Dioxide BUN Creatinine Glucose POC Glucose 155 H Lactic Acid Calcium Phosphorus Magnesium Ferritin Direct Bilirubin AST ALT Lactate Dehydrogenase Total Creatine Kinase C-Reactive Protein Total Protein Albumin Triglycerides Arterial Blood Glucose 169 H Arterial Blood Ionized Calcium Urine Creatinine Urine Chloride Vancomycin Trough Coronavirus (PCR) Crossmatch 06/23/20 06/23/20 06/23/20 04:00 04:00 05:24 WBC 27.4 H RBC Hgb 11.3 L Hct 33.8 L RDW Lymph % (Auto) Lymph # (Auto) [place] # (Auto) Seg Neuts % (Manual) 93.0 H Lymphocytes % (Manual) 1.0 L Nucleated RBC % 1.0 H Seg Neutrophils # Seg Neutrophils # Man 25.5 H Lymphocytes # (Manual) 0.3 L Monocytes # (Manual) 1.1 H PT INR APTT D-Dimer Heparin Anti-Xa Level ABG pH POC ABG pCO2 POC ABG pO2 ABG Hemoglobin ABG Oxyhemoglobin ABG Sodium ABG Potassium ABG Chloride ABG Glucose Carboxyhemoglobin Sodium Potassium Chloride 107.6 H Carbon Dioxide 20 L BUN 100 H Creatinine 4.7 H Glucose 168 H POC Glucose 151 H Lactic Acid Calcium Phosphorus Magnesium Ferritin Direct Bilirubin AST ALT Lactate Dehydrogenase Total Creatine Kinase C-Reactive Protein Total Protein Albumin Triglycerides Arterial Blood Glucose Arterial Blood Ionized Calcium Urine Creatinine Urine Chloride Vancomycin Trough Coronavirus (PCR) Crossmatch 06/23/20 06/23/20 06/23/20 11:30 17:18 23:50 WBC RBC Hgb Hct RDW Lymph % (Auto) Lymph # (Auto) [place] # (Auto) Seg Neuts % (Manual) Lymphocytes % (Manual) Nucleated RBC % Seg Neutrophils # Seg Neutrophils # Man Lymphocytes # (Manual) Monocytes # (Manual) PT INR APTT D-Dimer Heparin Anti-Xa Level ABG pH POC ABG pCO2 POC ABG pO2 ABG Hemoglobin ABG Oxyhemoglobin ABG Sodium ABG Potassium ABG Chloride ABG Glucose Carboxyhemoglobin Sodium Potassium Chloride Carbon Dioxide BUN Creatinine Glucose POC Glucose 157 H 156 H 162 H Lactic Acid Calcium Phosphorus Magnesium Ferritin Direct Bilirubin AST ALT Lactate Dehydrogenase Total Creatine Kinase C-Reactive Protein Total Protein Albumin Triglycerides Arterial Blood Glucose Arterial Blood Ionized Calcium Urine Creatinine Urine Chloride Vancomycin Trough Coronavirus (PCR) Crossmatch 06/24/20 06/24/20 06/24/20 04:41 05:57 06:30 WBC 34.3 H RBC Hgb 10.9 L Hct 32.6 L RDW Lymph % (Auto) 2.0 L Lymph # (Auto) 0.7 L [place] # (Auto) 1.2 H Seg Neuts % (Manual) 96.0 H Lymphocytes % (Manual) 3.0 L Nucleated RBC % Seg Neutrophils # 32.3 H Seg Neutrophils # Man 32.9 H Lymphocytes # (Manual) 1.0 L Monocytes # (Manual) PT INR APTT D-Dimer Heparin Anti-Xa Level ABG pH POC ABG pCO2 POC ABG pO2 71.1 L ABG Hemoglobin ABG Oxyhemoglobin 92.4 L ABG Sodium 115.6 L ABG Potassium ABG Chloride ABG Glucose 159 H Carboxyhemoglobin Sodium Potassium Chloride Carbon Dioxide BUN Creatinine Glucose POC Glucose 143 H Lactic Acid Calcium Phosphorus Magnesium Ferritin Direct Bilirubin AST ALT Lactate Dehydrogenase Total Creatine Kinase C-Reactive Protein Total Protein Albumin Triglycerides Arterial Blood Glucose 159 H Arterial Blood Ionized Calcium 4.2 L Urine Creatinine Urine Chloride Vancomycin Trough Coronavirus (PCR) Crossmatch 06/24/20 06/24/20 06/24/20 07:03 09:37 11:56 WBC RBC Hgb Hct RDW Lymph % (Auto) Lymph # (Auto) [place] # (Auto) Seg Neuts % (Manual) Lymphocytes % (Manual) Nucleated RBC % Seg Neutrophils # Seg Neutrophils # Man Lymphocytes # (Manual) Monocytes # (Manual) PT INR APTT D-Dimer Heparin Anti-Xa Level 0.26 L ABG pH POC ABG pCO2 POC ABG pO2 ABG Hemoglobin ABG Oxyhemoglobin ABG Sodium ABG Potassium ABG Chloride ABG Glucose Carboxyhemoglobin Sodium Potassium 5.1 H Chloride Carbon Dioxide BUN 103 H Creatinine 5.0 H Glucose 163 H POC Glucose 149 H Lactic Acid Calcium 7.6 L Phosphorus Magnesium Ferritin Direct Bilirubin AST ALT Lactate Dehydrogenase Total Creatine Kinase C-Reactive Protein Total Protein Albumin Triglycerides Arterial Blood Glucose Arterial Blood Ionized Calcium Urine Creatinine Urine Chloride Vancomycin Trough Coronavirus (PCR) Crossmatch 06/24/20 06/25/20 06/25/20 18:09 01:05 03:00 WBC RBC Hgb 10.6 L Hct 32.1 L RDW Lymph % (Auto) Lymph # (Auto) [place] # (Auto) Seg Neuts % (Manual) Lymphocytes % (Manual) Nucleated RBC % Seg Neutrophils # Seg Neutrophils # Man Lymphocytes # (Manual) Monocytes # (Manual) PT INR APTT D-Dimer Heparin Anti-Xa Level ABG pH POC ABG pCO2 POC ABG pO2 ABG Hemoglobin ABG Oxyhemoglobin ABG Sodium ABG Potassium ABG Chloride ABG Glucose Carboxyhemoglobin Sodium Potassium Chloride Carbon Dioxide BUN Creatinine Glucose POC Glucose 141 H 137 H Lactic Acid Calcium Phosphorus Magnesium Ferritin Direct Bilirubin AST ALT Lactate Dehydrogenase Total Creatine Kinase C-Reactive Protein Total Protein Albumin Triglycerides Arterial Blood Glucose Arterial Blood Ionized Calcium Urine Creatinine Urine Chloride Vancomycin Trough Coronavirus (PCR) Crossmatch 06/25/20 06/25/20 06/25/20 03:48 05:17 12:08 WBC RBC Hgb Hct RDW Lymph % (Auto) Lymph # (Auto) [place] # (Auto) Seg Neuts % (Manual) Lymphocytes % (Manual) Nucleated RBC % Seg Neutrophils # Seg Neutrophils # Man Lymphocytes # (Manual) Monocytes # (Manual) PT INR APTT D-Dimer Heparin Anti-Xa Level ABG pH POC ABG pCO2 29.4 L POC ABG pO2 67.1 L ABG Hemoglobin 11.5 L ABG Oxyhemoglobin ABG Sodium 124.1 L ABG Potassium 4.6 H ABG Chloride ABG Glucose 159 H Carboxyhemoglobin Sodium Potassium Chloride Carbon Dioxide BUN Creatinine Glucose POC Glucose 149 H 150 H Lactic Acid Calcium Phosphorus Magnesium Ferritin Direct Bilirubin AST ALT Lactate Dehydrogenase Total Creatine Kinase C-Reactive Protein Total Protein Albumin Triglycerides Arterial Blood Glucose 159 H Arterial Blood Ionized Calcium 4.2 L Urine Creatinine Urine Chloride Vancomycin Trough Coronavirus (PCR) Crossmatch 06/25/20 06/25/20 06/25/20 16:27 16:35 17:27 WBC RBC Hgb Hct RDW Lymph % (Auto) Lymph # (Auto) [place] # (Auto) Seg Neuts % (Manual) Lymphocytes % (Manual) Nucleated RBC % Seg Neutrophils # Seg Neutrophils # Man Lymphocytes # (Manual) Monocytes # (Manual) PT INR APTT D-Dimer Heparin Anti-Xa Level < 0.10 L ABG pH POC ABG pCO2 POC ABG pO2 ABG Hemoglobin ABG Oxyhemoglobin ABG Sodium ABG Potassium ABG Chloride ABG Glucose Carboxyhemoglobin Sodium Potassium Chloride Carbon Dioxide BUN Creatinine Glucose POC Glucose 143 H 156 H Lactic Acid Calcium Phosphorus Magnesium Ferritin Direct Bilirubin AST ALT Lactate Dehydrogenase Total Creatine Kinase C-Reactive Protein Total Protein Albumin Triglycerides Arterial Blood Glucose Arterial Blood Ionized Calcium Urine Creatinine Urine Chloride Vancomycin Trough Coronavirus (PCR) Crossmatch 06/25/20 06/25/20 06/25/20 20:00 20:55 23:10 WBC 32.7 H RBC 3.06 L Hgb 9.0 L 9.5 L Hct 26.7 L 28.6 L RDW Lymph % (Auto) Lymph # (Auto) [place] # (Auto) Seg Neuts % (Manual) Lymphocytes % (Manual) 2.0 L Nucleated RBC % Seg Neutrophils # Seg Neutrophils # Man 30.7 H Lymphocytes # (Manual) 0.7 L Monocytes # (Manual) 1.3 H PT 17.7 H INR 1.47 H APTT 65.8 H* D-Dimer Heparin Anti-Xa Level ABG pH POC ABG pCO2 POC ABG pO2 ABG Hemoglobin ABG Oxyhemoglobin ABG Sodium ABG Potassium ABG Chloride ABG Glucose Carboxyhemoglobin Sodium Potassium Chloride Carbon Dioxide BUN Creatinine Glucose POC Glucose Lactic Acid Calcium Phosphorus Magnesium Ferritin Direct Bilirubin AST ALT Lactate Dehydrogenase Total Creatine Kinase C-Reactive Protein Total Protein Albumin Triglycerides Arterial Blood Glucose Arterial Blood Ionized Calcium Urine Creatinine Urine Chloride Vancomycin Trough Coronavirus (PCR) Crossmatch 06/25/20 06/26/20 06/26/20 23:14 01:30 03:25 WBC RBC Hgb Hct RDW Lymph % (Auto) Lymph # (Auto) [place] # (Auto) Seg Neuts % (Manual) Lymphocytes % (Manual) Nucleated RBC % Seg Neutrophils # Seg Neutrophils # Man Lymphocytes # (Manual) Monocytes # (Manual) PT INR APTT D-Dimer Heparin Anti-Xa Level < 0.10 L ABG pH POC ABG pCO2 POC ABG pO2 ABG Hemoglobin 11.8 L ABG Oxyhemoglobin ABG Sodium 127.1 L ABG Potassium 5.4 H ABG Chloride ABG Glucose 155 H Carboxyhemoglobin 0.3 L Sodium Potassium Chloride Carbon Dioxide BUN Creatinine Glucose POC Glucose 148 H Lactic Acid Calcium Phosphorus Magnesium Ferritin Direct Bilirubin AST ALT Lactate Dehydrogenase Total Creatine Kinase C-Reactive Protein Total Protein Albumin Triglycerides Arterial Blood Glucose 155 H Arterial Blood Ionized Calcium 4.2 L Urine Creatinine Urine Chloride Vancomycin Trough Coronavirus (PCR) Crossmatch 06/26/20 06/26/20 06/26/20 03:59 05:14 05:47 WBC 36.5 H RBC 3.26 L Hgb 9.7 L Hct 28.2 L RDW Lymph % (Auto) Lymph # (Auto) [place] # (Auto) Seg Neuts % (Manual) 92.0 H Lymphocytes % (Manual) 4.0 L Nucleated RBC % Seg Neutrophils # Seg Neutrophils # Man 33.6 H Lymphocytes # (Manual) Monocytes # (Manual) PT INR APTT D-Dimer Heparin Anti-Xa Level ABG pH POC ABG pCO2 POC ABG pO2 ABG Hemoglobin ABG Oxyhemoglobin ABG Sodium ABG Potassium ABG Chloride ABG Glucose Carboxyhemoglobin Sodium Potassium 5.9 H Chloride Carbon Dioxide 20 L BUN 144 H Creatinine 6.4 H Glucose 149 H POC Glucose 128 H Lactic Acid Calcium 7.6 L Phosphorus Magnesium Ferritin Direct Bilirubin AST ALT Lactate Dehydrogenase Total Creatine Kinase C-Reactive Protein Total Protein Albumin Triglycerides Arterial Blood Glucose Arterial Blood Ionized Calcium Urine Creatinine Urine Chloride Vancomycin Trough Coronavirus (PCR) Crossmatch 06/26/20 06/26/20 06/26/20 05:47 12:47 17:42 WBC RBC Hgb Hct RDW Lymph % (Auto) Lymph # (Auto) [place] # (Auto) Seg Neuts % (Manual) Lymphocytes % (Manual) Nucleated RBC % Seg Neutrophils # Seg Neutrophils # Man Lymphocytes # (Manual) Monocytes # (Manual) PT 17.4 H INR 1.44 H APTT D-Dimer Heparin Anti-Xa Level ABG pH POC ABG pCO2 POC ABG pO2 ABG Hemoglobin ABG Oxyhemoglobin ABG Sodium ABG Potassium ABG Chloride ABG Glucose Carboxyhemoglobin Sodium Potassium Chloride Carbon Dioxide BUN Creatinine Glucose POC Glucose 124 H 127 H Lactic Acid Calcium Phosphorus Magnesium Ferritin Direct Bilirubin AST ALT Lactate Dehydrogenase Total Creatine Kinase C-Reactive Protein Total Protein Albumin Triglycerides Arterial Blood Glucose Arterial Blood Ionized Calcium Urine Creatinine Urine Chloride Vancomycin Trough Coronavirus (PCR) Crossmatch 06/26/20 06/27/20 06/27/20 23:30 03:32 04:00 WBC RBC Hgb 8.7 L Hct 26.4 L RDW Lymph % (Auto) Lymph # (Auto) [place] # (Auto) Seg Neuts % (Manual) Lymphocytes % (Manual) Nucleated RBC % Seg Neutrophils # Seg Neutrophils # Man Lymphocytes # (Manual) Monocytes # (Manual) PT INR APTT D-Dimer Heparin Anti-Xa Level ABG pH 7.298 L POC ABG pCO2 POC ABG pO2 ABG Hemoglobin 9.6 L ABG Oxyhemoglobin ABG Sodium 124.4 L ABG Potassium 6.6 H ABG Chloride ABG Glucose 136 H Carboxyhemoglobin Sodium Potassium Chloride Carbon Dioxide BUN Creatinine Glucose POC Glucose 123 H Lactic Acid Calcium Phosphorus Magnesium Ferritin Direct Bilirubin AST ALT Lactate Dehydrogenase Total Creatine Kinase C-Reactive Protein Total Protein Albumin Triglycerides Arterial Blood Glucose 136 H Arterial Blood Ionized Calcium 4.1 L Urine Creatinine Urine Chloride Vancomycin Trough Coronavirus (PCR) Crossmatch 06/27/20 06/27/20 06/27/20 05:26 10:14 11:58 WBC RBC Hgb Hct RDW Lymph % (Auto) Lymph # (Auto) [place] # (Auto) Seg Neuts % (Manual) Lymphocytes % (Manual) Nucleated RBC % Seg Neutrophils # Seg Neutrophils # Man Lymphocytes # (Manual) Monocytes # (Manual) PT INR APTT D-Dimer Heparin Anti-Xa Level ABG pH POC ABG pCO2 POC ABG pO2 ABG Hemoglobin ABG Oxyhemoglobin ABG Sodium ABG Potassium ABG Chloride ABG Glucose Carboxyhemoglobin Sodium 136 L Potassium 7.0 H* Chloride 97.8 L Carbon Dioxide BUN 172 H Creatinine 7.4 H Glucose 129 H POC Glucose 124 H 115 H Lactic Acid Calcium 7.6 L Phosphorus Magnesium Ferritin Direct Bilirubin AST ALT Lactate Dehydrogenase Total Creatine Kinase C-Reactive Protein Total Protein Albumin Triglycerides Arterial Blood Glucose Arterial Blood Ionized Calcium Urine Creatinine Urine Chloride Vancomycin Trough Coronavirus (PCR) Crossmatch 06/27/20 06/27/20 06/27/20 17:32 18:30 23:24 WBC RBC Hgb Hct RDW Lymph % (Auto) Lymph # (Auto) [place] # (Auto) Seg Neuts % (Manual) Lymphocytes % (Manual) Nucleated RBC % Seg Neutrophils # Seg Neutrophils # Man Lymphocytes # (Manual) Monocytes # (Manual) PT INR APTT D-Dimer Heparin Anti-Xa Level ABG pH POC ABG pCO2 POC ABG pO2 ABG Hemoglobin ABG Oxyhemoglobin ABG Sodium ABG Potassium ABG Chloride ABG Glucose Carboxyhemoglobin Sodium Potassium 7.3 H* Chloride Carbon Dioxide BUN Creatinine Glucose POC Glucose 122 H 116 H Lactic Acid Calcium Phosphorus Magnesium Ferritin Direct Bilirubin AST ALT Lactate Dehydrogenase Total Creatine Kinase C-Reactive Protein Total Protein Albumin Triglycerides Arterial Blood Glucose Arterial Blood Ionized Calcium Urine Creatinine Urine Chloride Vancomycin Trough Coronavirus (PCR) Crossmatch 06/28/20 06/28/20 06/28/20 00:00 02:16 05:37 WBC RBC Hgb Hct RDW Lymph % (Auto) Lymph # (Auto) [place] # (Auto) Seg Neuts % (Manual) Lymphocytes % (Manual) Nucleated RBC % Seg Neutrophils # Seg Neutrophils # Man Lymphocytes # (Manual) Monocytes # (Manual) PT INR APTT D-Dimer Heparin Anti-Xa Level ABG pH POC ABG pCO2 POC ABG pO2 79.0 L ABG Hemoglobin 11.7 L ABG Oxyhemoglobin ABG Sodium 128.1 L ABG Potassium 6.6 H ABG Chloride ABG Glucose 124 H Carboxyhemoglobin Sodium Potassium 7.3 H* Chloride Carbon Dioxide BUN Creatinine Glucose POC Glucose 115 H Lactic Acid Calcium Phosphorus Magnesium Ferritin Direct Bilirubin AST ALT Lactate Dehydrogenase Total Creatine Kinase C-Reactive Protein Total Protein Albumin Triglycerides Arterial Blood Glucose 124 H Arterial Blood Ionized Calcium 4.2 L Urine Creatinine Urine Chloride Vancomycin Trough Coronavirus (PCR) Crossmatch 06/28/20 06/28/20 06/28/20 10:03 10:03 11:51 WBC 33.6 H RBC 3.03 L Hgb 8.9 L Hct 27.0 L RDW Lymph % (Auto) Lymph # (Auto) [place] # (Auto) Seg Neuts % (Manual) Lymphocytes % (Manual) Nucleated RBC % Seg Neutrophils # Seg Neutrophils # Man Lymphocytes # (Manual) Monocytes # (Manual) PT INR APTT D-Dimer Heparin Anti-Xa Level ABG pH POC ABG pCO2 POC ABG pO2 ABG Hemoglobin ABG Oxyhemoglobin ABG Sodium ABG Potassium ABG Chloride ABG Glucose Carboxyhemoglobin Sodium 136 L Potassium 6.5 H* Chloride Carbon Dioxide 20 L BUN 129 H Creatinine 5.8 H Glucose 113 H POC Glucose 107 H Lactic Acid Calcium 7.6 L Phosphorus Magnesium Ferritin Direct Bilirubin AST ALT Lactate Dehydrogenase Total Creatine Kinase C-Reactive Protein Total Protein Albumin Triglycerides Arterial Blood Glucose Arterial Blood Ionized Calcium Urine Creatinine Urine Chloride Vancomycin Trough Coronavirus (PCR) Crossmatch 06/28/20 06/28/20 06/29/20 17:45 Unknown 03:15 WBC RBC Hgb Hct RDW Lymph % (Auto) Lymph # (Auto) [place] # (Auto) Seg Neuts % (Manual) Lymphocytes % (Manual) Nucleated RBC % Seg Neutrophils # Seg Neutrophils # Man Lymphocytes # (Manual) Monocytes # (Manual) PT INR APTT D-Dimer Heparin Anti-Xa Level ABG pH POC ABG pCO2 POC ABG pO2 ABG Hemoglobin 7.8 L ABG Oxyhemoglobin ABG Sodium 127.4 L ABG Potassium 5.5 H ABG Chloride 97.0 L ABG Glucose 96 H Carboxyhemoglobin Sodium Potassium 5.4 H Chloride Carbon Dioxide BUN Creatinine Glucose POC Glucose 117 H Lactic Acid Calcium Phosphorus Magnesium Ferritin Direct Bilirubin AST ALT Lactate Dehydrogenase Total Creatine Kinase C-Reactive Protein Total Protein Albumin Triglycerides Arterial Blood Glucose 96 H Arterial Blood Ionized Calcium 4.0 L Urine Creatinine Urine Chloride Vancomycin Trough Coronavirus (PCR) Crossmatch 06/29/20 06/29/2006/29/21 03:45 Unknown Unknown WBC RBC Hgb Hct RDW Lymph % (Auto) Lymph # (Auto) [place] # (Auto) Seg Neuts % (Manual) Lymphocytes % (Manual) Nucleated RBC % Seg Neutrophils # Seg Neutrophils # Man Lymphocytes # (Manual) Monocytes # (Manual) PT INR APTT D-Dimer Heparin Anti-Xa Level ABG pH POC ABG pCO2 POC ABG pO2 ABG Hemoglobin ABG Oxyhemoglobin ABG Sodium ABG Potassium ABG Chloride ABG Glucose Carboxyhemoglobin Sodium 135 L Potassium 6.0 H 6.1 H* Chloride 94.8 L Carbon Dioxide BUN 109 H 114 H Creatinine 5.5 H Glucose POC Glucose Lactic Acid Calcium 7.4 L Phosphorus Magnesium Ferritin Direct Bilirubin AST 47 H ALT Lactate Dehydrogenase Total Creatine Kinase C-Reactive Protein Total Protein 4.9 L Albumin 2.2 L Triglycerides Arterial Blood Glucose Arterial Blood Ionized Calcium Urine Creatinine Urine Chloride Vancomycin Trough Coronavirus (PCR) Crossmatch 06/29/20 06/29/20 06/30/20 Unknown Unknown 03:32 WBC 20.7 H RBC 2.57 L Hgb 7.6 L Hct 23.0 L RDW Lymph % (Auto) Lymph # (Auto) [place] # (Auto) Seg Neuts % (Manual) Lymphocytes % (Manual) Nucleated RBC % Seg Neutrophils # Seg Neutrophils # Man Lymphocytes # (Manual) Monocytes # (Manual) PT INR APTT D-Dimer Heparin Anti-Xa Level ABG pH POC ABG pCO2 POC ABG pO2 ABG Hemoglobin 11.4 L ABG Oxyhemoglobin ABG Sodium 130.1 L ABG Potassium 5.0 H ABG Chloride ABG Glucose Carboxyhemoglobin Sodium Potassium Chloride Carbon Dioxide BUN Creatinine Glucose POC Glucose Lactic Acid Calcium Phosphorus Magnesium Ferritin Direct Bilirubin AST ALT Lactate Dehydrogenase Total Creatine Kinase 618 H C-Reactive Protein Total Protein Albumin Triglycerides Arterial Blood Glucose Arterial Blood Ionized Calcium 3.9 L Urine Creatinine Urine Chloride Vancomycin Trough Coronavirus (PCR) Crossmatch 06/30/20 06/30/20 06/30/20 03:50 03:50 11:39 WBC 13.1 H RBC Hgb Hct RDW Lymph % (Auto) Lymph # (Auto) [place] # (Auto) Seg Neuts % (Manual) 95.0 H Lymphocytes % (Manual) 3.0 L Nucleated RBC % Seg Neutrophils # Seg Neutrophils # Man 12.4 H Lymphocytes # (Manual) 0.4 L Monocytes # (Manual) PT INR APTT D-Dimer Heparin Anti-Xa Level ABG pH POC ABG pCO2 POC ABG pO2 ABG Hemoglobin ABG Oxyhemoglobin ABG Sodium ABG Potassium ABG Chloride ABG Glucose Carboxyhemoglobin Sodium 135 L Potassium 5.4 H D Chloride 93.6 L Carbon Dioxide BUN 85 H Creatinine 4.6 H Glucose POC Glucose 111 H Lactic Acid Calcium 7.1 L Phosphorus 9.40 H Magnesium Ferritin Direct Bilirubin AST ALT Lactate Dehydrogenase Total Creatine Kinase C-Reactive Protein Total Protein Albumin Triglycerides Arterial Blood Glucose Arterial Blood Ionized Calcium Urine Creatinine Urine Chloride Vancomycin Trough Coronavirus (PCR) Crossmatch 06/30/20 06/30/20 07/01/20 13:12 Unknown 03:19 WBC RBC Hgb 7.8 L D Hct 23.2 L D RDW Lymph % (Auto) Lymph # (Auto) [place] # (Auto) Seg Neuts % (Manual) Lymphocytes % (Manual) Nucleated RBC % Seg Neutrophils # Seg Neutrophils # Man Lymphocytes # (Manual) Monocytes # (Manual) PT INR APTT D-Dimer Heparin Anti-Xa Level ABG pH 7.461 H POC ABG pCO2 POC ABG pO2 77.2 L ABG Hemoglobin 6.9 L ABG Oxyhemoglobin ABG Sodium 128.5 L ABG Potassium ABG Chloride 97.0 L ABG Glucose Carboxyhemoglobin Sodium Potassium Chloride Carbon Dioxide BUN Creatinine Glucose POC Glucose Lactic Acid Calcium Phosphorus Magnesium Ferritin Direct Bilirubin AST ALT Lactate Dehydrogenase Total Creatine Kinase C-Reactive Protein Total Protein Albumin Triglycerides Arterial Blood Glucose Arterial Blood Ionized Calcium 3.7 L Urine Creatinine Urine Chloride Vancomycin Trough Coronavirus (PCR) Positive A Crossmatch 07/01/20 07/01/20 07/01/20 06:00 06:00 11:04 WBC 16.7 H RBC 2.16 L Hgb 6.4 L Hct 19.2 L* RDW Lymph % (Auto) Lymph # (Auto) [place] # (Auto) Seg Neuts % (Manual) Lymphocytes % (Manual) Nucleated RBC % Seg Neutrophils # Seg Neutrophils # Man Lymphocytes # (Manual) Monocytes # (Manual) PT INR APTT D-Dimer Heparin Anti-Xa Level ABG pH POC ABG pCO2 POC ABG pO2 ABG Hemoglobin ABG Oxyhemoglobin ABG Sodium ABG Potassium ABG Chloride ABG Glucose Carboxyhemoglobin Sodium 136 L Potassium Chloride 95.8 L Carbon Dioxide BUN 72 H Creatinine 4.3 H Glucose POC Glucose Lactic Acid Calcium 6.7 L Phosphorus Magnesium Ferritin Direct Bilirubin AST ALT Lactate Dehydrogenase Total Creatine Kinase C-Reactive Protein Total Protein Albumin Triglycerides 250 H Arterial Blood Glucose Arterial Blood Ionized Calcium Urine Creatinine Urine Chloride Vancomycin Trough Coronavirus (PCR) Crossmatch See Detail 07/02/20 07/02/20 07/02/20 04:44 06:00 11:33 WBC 14.6 H RBC 2.47 L Hgb 7.4 L Hct 21.8 L RDW Lymph % (Auto) Lymph # (Auto) [place] # (Auto) Seg Neuts % (Manual) Lymphocytes % (Manual) Nucleated RBC % Seg Neutrophils # Seg Neutrophils # Man Lymphocytes # (Manual) Monocytes # (Manual) PT INR APTT D-Dimer Heparin Anti-Xa Level ABG pH 7.457 H POC ABG pCO2 POC ABG pO2 79.4 L ABG Hemoglobin 8.5 L ABG Oxyhemoglobin ABG Sodium 128.4 L ABG Potassium ABG Chloride 97.0 L ABG Glucose 100 H Carboxyhemoglobin Sodium 133 L Potassium 5.2 H Chloride 93.3 L Carbon Dioxide BUN 66 H Creatinine 4.1 H Glucose 102 H POC Glucose Lactic Acid Calcium 7.2 L Phosphorus Magnesium Ferritin Direct Bilirubin AST ALT Lactate Dehydrogenase Total Creatine Kinase C-Reactive Protein Total Protein Albumin Triglycerides Arterial Blood Glucose 100 H Arterial Blood Ionized Calcium 3.9 L Urine Creatinine Urine Chloride Vancomycin Trough Coronavirus (PCR) Crossmatch 07/02/20 07/03/20 07/03/20 11:33 03:54 09:15 WBC 16.6 H RBC 2.44 L Hgb 7.3 L Hct 21.4 L RDW Lymph % (Auto) Lymph # (Auto) Clare # (Auto) Seg Neuts % (Manual) Lymphocytes % (Manual) Nucleated RBC % Seg Neutrophils # Seg Neutrophils # Man Lymphocytes # (Manual) Monocytes # (Manual) PT INR APTT D-Dimer Heparin Anti-Xa Level ABG pH POC ABG pCO2 POC ABG pO2 66.1 L ABG Hemoglobin 8.0 L ABG Oxyhemoglobin ABG Sodium 124.6 L ABG Potassium 5.5 H ABG Chloride 96.0 L ABG Glucose 111 H Carboxyhemoglobin Sodium Potassium Chloride Carbon Dioxide BUN Creatinine Glucose POC Glucose Lactic Acid Calcium Phosphorus Magnesium Ferritin Direct Bilirubin 0.7 H AST 94 H ALT 60 H Lactate Dehydrogenase Total Creatine Kinase C-Reactive Protein Total Protein 4.4 L Albumin 1.9 L Triglycerides Arterial Blood Glucose 111 H Arterial Blood Ionized Calcium 3.8 L Urine Creatinine Urine Chloride Vancomycin Trough Coronavirus (PCR) Crossmatch 07/03/20 09:15 WBC RBC Hgb Hct RDW Lymph % (Auto) Lymph # (Auto) Clare # (Auto) Seg Neuts % (Manual) Lymphocytes % (Manual) Nucleated RBC % Seg Neutrophils # Seg Neutrophils # Man Lymphocytes # (Manual) Monocytes # (Manual) PT INR APTT D-Dimer Heparin Anti-Xa Level ABG pH POC ABG pCO2 POC ABG pO2 ABG Hemoglobin ABG Oxyhemoglobin ABG Sodium ABG Potassium ABG Chloride ABG Glucose Carboxyhemoglobin Sodium 133 L Potassium 6.2 H* Chloride 93.1 L Carbon Dioxide BUN 89 H Creatinine 5.1 H Glucose POC Glucose Lactic Acid Calcium 7.0 L Phosphorus Magnesium Ferritin Direct Bilirubin AST ALT Lactate Dehydrogenase Total Creatine Kinase C-Reactive Protein Total Protein Albumin Triglycerides Arterial Blood Glucose Arterial Blood Ionized Calcium Urine Creatinine Urine Chloride Vancomycin Trough Coronavirus (PCR) Crossmatch Chest x-ray: image reviewed (increased bilateral / lizeth-hilar infiltrates increased) Allied health notes reviewed: nursing
[2020-07-03] MEDS ORDERED: SODIUM POLYSTYRENE 15 GM/60 ML ORAL LIQD PO ONE (12:47)
--- NOTE | 2020-07-03 12:54 | Progress Note ---
Assessment and Plan Cultures: SARS CoV2 PCR: Positive as outpatient Blood culture: no growth Sputum culture: no growth A/P: 59-year-old male with obesity, obesity hypoventilation syndrome: #Severe sepsis with septic shock: likely secondary to critical COVID-19 pneumonia. Blood cultures so far negative. ?Bacterial pneumonia component, but sputum culture with no growth. On empiric abx, steroids. Completed Remdesivir. #Critical COVID-19 pneumonia: Procalcitonin also high on admission (Now with worsening GIRISH, no longer reliable), completed empiric antibiotic course. #Acute hypoxic respiratory failure: on the vent #Transaminitis: Likely secondary to COVID-19. #GIRISH: On HD MWF, started 06/22/2020 Recs: -completed steroids, remdesivir, cefepime -if febrile again, would reculture ET aspirate, blood and start IV Cefepime + Vancomycin renally dosed -prophylactic anticoagulation based on d-dimer per hospital protocol -poor prognosis Tj Fajardo MD, FACP [facility] ([facility] O: [phone] F: [phone] Subjective Date of service: 07/03/20 Principal diagnosis: ARF/Septic Shock/COVID-19 PNA, AF with RVR Interval history: Remains on the vent. Critically ill. Low grade fever. Objective - Exam Narrative Exam: Physical Exam (reviewed in chart to minimize risk of transmission) Constitutional: deferred Head, Ears, Nose: deferred Eyes: deferred Neck: deferred Oral: deferred Cardiovascular: deferred Respiratory: deferred GI: deferred Musculoskeletal: deferred Skin: deferred Hem/Lymphatic: deferred Psych: deferred Neurological: deferred - Constitutional Vitals: Vital Signs Temp Pulse Resp BP Pulse Ox 98.4 F 113 H 22 101/45 96 07/03/20 12:00 07/03/20 12:15 07/03/20 12:15 07/03/20 12:15 07/03/20 12:15 Temperature -Last 24 Hours Temperature 98.4 F Temperature 100.1 F Temperature 100.4 F Temperature 100.8 F Temperature 98.5 F - Labs CBC & Chem 7: 07/03/20 09:15 07/03/20 09:15 Labs: Abnormal lab results 07/03/20 07/03/20 07/03/20 Range/Units 03:54 09:15 09:15 WBC 16.6 H (4.5-11.0) K/mm3 RBC 2.44 L (3.65-5.03) M/mm3 Hgb 7.3 L (11.8-15.2) gm/dl Hct 21.4 L (35.5-45.6) % POC ABG pO2 66.1 L (83-108) mmHg ABG Hemoglobin 8.0 L (12.0-17.5) ABG Sodium 124.6 L (136.0-145.0) mmol/L ABG Potassium 5.5 H (3.40-4.50) mmol/L ABG Chloride 96.0 L (98-107) mmol/L ABG Glucose 111 H (65-95) mg/dL Sodium 133 L (137-145) mmol/L Potassium 6.2 H* (3.6-5.0) mmol/L Chloride 93.1 L (98-107) mmol/L BUN 89 H (9-20) mg/dL Creatinine 5.1 H (0.8-1.3) mg/dL Calcium 7.0 L (8.4-10.2) mg/dL Arterial Blood Glucose 111 H (65-95) mg/dL Arterial Blood Ionized Calcium 3.8 L (4.6-5.3) mg/dL
--- NOTE | 2020-07-03 14:12 | Progress Note ---
Assessment and Plan 59-year-old white male who was admitted for pneumonia secondary to Covid with associated respiratory failure and sepsis. Hyperkalemia -Treated aggressively -Calcium gluconate IV sodium bicarbonate and Kayexalate given Acute metabolic encephalopathy -Due to severe sepsis and severe hypoxia -CT head ordered (patient is too unstable to do the scan), currently intubated, continue supportive care with frequent neuro check Acute hypoxic respiratory failure -Due to severe COVID-19 pneumonia -Intubated following admission overnight as patient was unable to maintain oxygenation with 100% FiO2 with BiPAP -Critical care following, frequent nebulizer breathing treatment, empiric steroid Severe septic shock -Patient currently on 2 pressor support -Wean off as tolerated COVID-19 pneumonia -Follow inflammatory markers, ID consulted --Patient initially tested positive for COVID-19 virus about 2 weeks before this admission -CXR shows patchy parenchymal disease which represent pulmonary edema or atypical pneumonia -Placed on dexamethasone for total 10 days and completed remdesivir total 5 days -Continue empiric antibiotics for now per ID recommendation -Droplet/contact isolation -Continue SPO2 monitoring -Supplemental oxygen as needed -Pulmonary hygiene, Prone intermittently to improve oxygenation -Vitamin C, vitamin D, zinc -Anticoagulation per protocol -Lasix IV as needed to prevent pulmonary edema GIRISH, likely ATN -Follow BMP daily, avoid nephrotoxins -Consulted nephrology, follow recommendations -Renal function continues to decline, started on hemodialysis since 06/22/20 hypokalemia, repleted Supraventricular tachycardia/paroxysmal atrial fibrillation -likely due to severe sepsis -Patient currently on pressors and IV amiodarone drip for rate control if needed -Consulted cardiology, echo ordered currently pending -Placed on heparin drip Elevated LFT, due to shock liver from severe sepsis and COVID-19 infection -Continue to trend Morbid obesity, -Associated with poor outcome with Covid infection -need counseling for diet and exercise and healthy lifestyles once clinically stable as outpatient DVT prophylaxis, per Covid protocol Full CODE STATUS Poor prognosis The high probability of a clinically significant, sudden or life threatening deterioration of the [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 The aggregate critical care time was [42] minutes. This time is in addition to time spent performing reported procedures but includes the following: [x] Data Review and interpretation [x] Patient assessment and monitoring of vital signs [x] Documentation [x] Medication orders and management daily course: 06/18: Patient got intubated overnight. Patient was placed on BiPAP to maintain oxygenation with 100% FiO2 but apparently he found to take off his argueta which made his oxygen saturation go down at 60s/50s and patient was found altered mental status. Code met was called immediately. Patient was transferred to ICU and intubated, patient currently on 2 pressors, intubated with 100% FiO2, renal function noted to be decline, nephrology consulted. Discussed with [place] physician Dr. Thompson and requested call back on Saturday. Poor prognosis, continue to monitor with aggressive supportive care. Also called family/ to update clinical status. 06/19: Repeat COVID test was positive. cont cefepime, remdesivir per ID recommendation. follow inflammatory markers, cbc, bmp. placed on heparin drip for atrial fib 06/20: Remains on mechanical ventilation, on 2 pressors, on heparin drip. discussed with and daughter by phone. Renal function declining. cont supportive care for now. 06/21: Renal function cont to decline, urine outpt sig decreased. started on lasix 80mg BID, plan to follow urine output, if no improvement patient need to start on HD. called and daughter today. updated all clinical details 06/22: Renal function continues to decline with uremia and hyperkalemia. Will need to proceed with hemodialysis. Nephrology discussed with the family and they agrees for the hemodialysis. Patient remains on pressor support and mechanical ventilation. Vas-Cath placed today by vascular started on hemodialysis today. 06/23: 2nd round of HD today, remains on 2 pressors. per RN not tolerating TF, has no record of BM since 06/18. start on stool softner. follow cbc/bmp. updated family( and daughter) by phone -all question answered to best of my knowledge and to their satisfaction. Patient remains critically ill with a very poor prognosis. 06/24: Continue supportive care, Very poor prognosis, Handbook Writer to discuss with family in am due to the futility of the condition. 06/25/2020 continue supportive care very poor prognosis 06/26/2020 continue supportive care very poor prognosis family updated 06/27/2020 continue supportive care and weaning if possible 06/28/2020 continue supportive care, talk with at length 06/29: Resumed care. K level persistently high. give one dose of bicarbonate, plan for HD today, recheck k after HD. updated family by phone 06/30: updated family by phone. Patient remains on amiodarone drip and vasopressin. Getting HD at the bedside. Tolerating tube feeding at low rate. 07/01: Hb dropped to 6.4 today, transfuse one unit PRBC. patient is off pressor today, remains on amioderone. cont to monitor 07/02: Called patient and updated clinical details. Patient remains critically ill, still intubated. Patient's oxygen requirement and PEEP pressure has went down. Continue weaning protocol per critical care recommendation. Patient remains off pressor. Continue to wean off from amiodarone and plan to rate control with p.o. medications. Tolerating tube feeding. H&H stable today. Order for stool for occult blood. Monitor H&H and BMP. Continue to follow clinically 07/03: discussed with [place] physician today. Patient back on 100percent Fio2 since last night. planned for emergent Hd today. spiked fever, start IV Cefepime + Vancomycin renally dosed. Restarted Levophed today, remains on amiodarone drip. Patient family was updated by critical care attending today. Subjective Date of service: 07/03/20 Principal diagnosis: ARF/Septic Shock/COVID-19 PNA, AF with RVR Objective - Constitutional Vitals: Vital Signs - 12hr 07/03/20 07/03/20 07/03/20 02:15 02:30 02:45 Temperature Pulse Rate 100 H 97 H 98 H Respiratory 26 H 28 H 26 H Rate Blood Pressure 110/45 118/48 124/52 O2 Sat by Pulse 94 93 93 Oximetry 07/03/20 07/03/20 07/03/20 03:00 03:15 03:30 Temperature Pulse Rate 96 H 97 H 96 H Respiratory 26 H 25 H 26 H Rate Blood Pressure 120/49 110/47 108/47 O2 Sat by Pulse 92 92 92 Oximetry 07/03/20 07/03/20 07/03/20 03:45 03:52 04:00 Temperature Pulse Rate 97 H 99 H 97 H Respiratory 27 H 25 H Rate Blood Pressure 114/47 106/49 O2 Sat by Pulse 92 92 91 Oximetry 07/03/20 07/03/20 07/03/20 04:15 04:30 04:45 Temperature Pulse Rate 95 H 96 H 95 H Respiratory 27 H 27 H 26 H Rate Blood Pressure 114/46 114/48 113/46 O2 Sat by Pulse 91 91 91 Oximetry 07/03/20 07/03/20 07/03/20 05:00 05:15 05:25 Temperature Pulse Rate 95 H 94 H 98 H Respiratory 27 H 27 H Rate Blood Pressure 108/47 116/48 116/48 O2 Sat by Pulse 91 90 Oximetry 07/03/20 07/03/20 07/03/20 05:30 05:45 06:00 Temperature Pulse Rate 98 H 97 H 95 H Respiratory 27 H 29 H 27 H Rate Blood Pressure 113/50 115/51 117/49 O2 Sat by Pulse 89 90 90 Oximetry 07/03/20 07/03/20 07/03/20 06:15 06:30 06:45 Temperature Pulse Rate 96 H 95 H 95 H Respiratory 27 H 28 H 27 H Rate Blood Pressure 124/47 115/48 117/49 O2 Sat by Pulse 91 91 91 Oximetry 07/03/20 07/03/20 07/03/20 07:00 07:15 07:30 Temperature 100.1 F H Pulse Rate 96 H 91 H 93 H Respiratory 27 H 25 H 27 H Rate Blood Pressure 126/48 121/49 124/52 O2 Sat by Pulse 91 92 91 Oximetry 07/03/20 07/03/20 07/03/20 07:35 07:45 08:00 Temperature Pulse Rate 90 92 H 92 H Respiratory 26 H 25 H Rate Blood Pressure 124/52 119/49 110/49 O2 Sat by Pulse 91 91 91 Oximetry 07/03/20 07/03/20 07/03/20 08:15 08:30 08:45 Temperature Pulse Rate 92 H 92 H 91 H Respiratory 26 H 26 H 26 H Rate Blood Pressure 107/50 111/51 126/52 O2 Sat by Pulse 91 91 91 Oximetry 07/03/20 07/03/20 07/03/20 09:01 09:15 09:30 Temperature Pulse Rate 91 H 91 H 89 Respiratory 27 H 29 H 27 H Rate Blood Pressure 134/52 118/53 123/54 O2 Sat by Pulse 90 89 90 Oximetry 07/03/20 07/03/20 07/03/20 09:45 10:00 10:15 Temperature Pulse Rate 89 91 H 89 Respiratory 27 H 26 H 26 H Rate Blood Pressure 125/51 114/48 115/43 O2 Sat by Pulse 89 91 92 Oximetry 07/03/20 07/03/20 07/03/20 10:30 10:45 11:00 Temperature Pulse Rate 89 110 H 111 H Respiratory 25 H 25 H 22 Rate Blood Pressure 108/41 100/44 89/47 O2 Sat by Pulse 92 93 93 Oximetry 07/03/20 07/03/20 07/03/20 11:15 11:31 11:32 Temperature Pulse Rate 111 H 107 H 109 H Respiratory 23 21 Rate Blood Pressure 81/45 122/60 122/60 O2 Sat by Pulse 94 93 Oximetry 07/03/20 07/03/20 07/03/20 11:45 12:00 12:12 Temperature 98.4 F Pulse Rate 113 H 105 H 113 H Respiratory 22 22 Rate Blood Pressure 109/52 105/46 105/46 O2 Sat by Pulse 94 95 94 Oximetry 07/03/20 07/03/20 07/03/20 12:15 12:30 12:45 Temperature Pulse Rate 113 H 110 H 112 H Respiratory 22 19 20 Rate Blood Pressure 101/45 96/48 96/48 O2 Sat by Pulse 96 97 97 Oximetry 07/03/20 13:00 Temperature Pulse Rate 111 H Respiratory 19 Rate Blood Pressure 92/47 O2 Sat by Pulse 97 Oximetry - Labs CBC & Chem 7: 07/04/20 05:20 07/04/20 05:20 Labs: Abnormal lab results 07/03/20 07/03/20 07/03/20 Range/Units 03:54 09:15 09:15 WBC 16.6 H (4.5-11.0) K/mm3 RBC 2.44 L (3.65-5.03) M/mm3 Hgb 7.3 L (11.8-15.2) gm/dl Hct 21.4 L (35.5-45.6) % POC ABG pO2 66.1 L (83-108) mmHg ABG Hemoglobin 8.0 L (12.0-17.5) ABG Sodium 124.6 L (136.0-145.0) mmol/L ABG Potassium 5.5 H (3.40-4.50) mmol/L ABG Chloride 96.0 L (98-107) mmol/L ABG Glucose 111 H (65-95) mg/dL Sodium 133 L (137-145) mmol/L Potassium 6.2 H* (3.6-5.0) mmol/L Chloride 93.1 L (98-107) mmol/L BUN 89 H (9-20) mg/dL Creatinine 5.1 H (0.8-1.3) mg/dL Calcium 7.0 L (8.4-10.2) mg/dL Arterial Blood Glucose 111 H (65-95) mg/dL Arterial Blood Ionized Calcium 3.8 L (4.6-5.3) mg/dL Coronavirus (PCR) (Negative) 07/03/20 Range/Units 10:10 WBC (4.5-11.0) K/mm3 RBC (3.65-5.03) M/mm3 Hgb (11.8-15.2) gm/dl Hct (35.5-45.6) % POC ABG pO2 (83-108) mmHg ABG Hemoglobin (12.0-17.5) ABG Sodium (136.0-145.0) mmol/L ABG Potassium (3.40-4.50) mmol/L ABG Chloride (98-107) mmol/L ABG Glucose (65-95) mg/dL Sodium (137-145) mmol/L Potassium (3.6-5.0) mmol/L Chloride (98-107) mmol/L BUN (9-20) mg/dL Creatinine (0.8-1.3) mg/dL Calcium (8.4-10.2) mg/dL Arterial Blood Glucose (65-95) mg/dL Arterial Blood Ionized Calcium (4.6-5.3) mg/dL Coronavirus (PCR) Positive A (Negative) HEART Score - HEART Score Troponin: Troponin T < 0.010 ng/mL (0.00-0.029) 06/17/20 12:33
[2020-07-03 15:29] LABS: C-Reactive Protein 31.5 mg/dL (0.00-1.30)
[2020-07-03] MEDS: NORepinephrine/NS 4 MG-250 ML 4 MG/250 ML BAG IV SCH (16:50)
[2020-07-03] MEDS: EPOETIN ALFA-EPBX 10,000 UNIT/1 ML VIAL IV PRN (18:10)
[2020-07-03] MEDS: dexAMETHasone 4 MG/ML VIAL IV SCH (18:34)
[2020-07-03] MEDS: AMIODARONE 900 MG in DEXTROSE 5% IN WATER 482 ML IV SCH (22:03)
[2020-07-03] MEDS: HEPARIN 5,000 UNIT/1 ML VIAL SUB-Q SCH (22:04)
[2020-07-04] MEDS: dilTIAZem 30 MG TAB PO SCH ×4 (00:36→18:27)
[2020-07-04] MEDS: INSULIN REGULAR, HUMAN 100 UNITS/1 ML SUB-Q SCH ×4 (00:37→17:45)
[2020-07-04] MEDS: fentaNYL DRIP Premix 2,000 MCG/100 ML BAG IV SCH ×4 (02:36→20:26)
--- NOTE | 2020-07-04 03:23 | Progress Note ---
Assessment and Plan Acute hypoxemic respiratory failure due to COVID-19 Severe COVID infection Severe Sepsis with shock Bilateral pneumonia Acute kidney injury (GIRISH) with acute tubular necrosis (ATN) on HD Elevated liver enzymes Obesity - Monitor blood pressure closely while optimizing sedation,wean vasopressor support for MAP > 65 mmHg -- VAP bundle addressed, aspiration precautions HOB >40 - continue lung protective strategies, permissive hypercapnic acceptable. - continue bronchodilators with pulmonary hygiene per RT - titrate supplemental oxygen to keep O2 sats>90% - continue tube feeds and advance to goal rate as tolerated - continue HD/UF per nephrology team for toxin and volume clearance - accuchecks with glycemic control per SSI (While critically ill target blood glucose of 140-180 mg/dL; avoid hypoglycemia) - sedation prn for target RASS -1 to -2 - continue enteral nutritional support at goal rate as tolerated - s/p antibiotics per ID recommendations - Monitor liver function test ,avoid hepatotoxic agents - azotemia per nephrology rec's - Avoid nephrotoxins, renally dose all medications, conservative fluid management - continue to avoid benzodiazepines, reduce the possibility of delirium, - prn analgesia per CPOT score - Maintenance of sleep-wake cycle, avoid delirium - Stress ulcer prophylaxis, Famotidine - PT/OT/ROM exercises - Mobility protocols for pressure ulcer prevention - CXR, ABG in am - CBC, CMP in am - Supportive transfusions to keep HgB >7g/dL - Monitor hemodynamics closely - continue other care per attending / other consultants COVID SPECIFIC INTERVENTIONS - continue steroids: Dexamethasone - s/p Remdesivir -s/p Critical care proning - monitor inflammatory markers per facility protocol - continue anticoagulation per System Protocol based on d-dimer - continue contact and airborne isolation CONDITION: CRITICAL PROGNOSIS: GUARDED CODE STATUS: FULL CODE The high probability of a clinically significant, sudden or life-threatening deterioration of the [respiratory, cardiovascular, hematologic & neurologic] system(s) required my full and direct attention, intervention and personal management. The aggregate critical care time was [35] minutes without overlap. Time includes spent on; [x] Data Review and interpretation [x] Patient assessment and monitoring of vital signs [x] Documentation [x] Medication orders and management b Subjective Date of service: 07/04/20 Principal diagnosis: ARF/Septic Shock/COVID-19 PNA, AF with RVR Interval history: Follow up for severe sepsis with septic shock; COVID-ARDS; acute hypoxemic resp failure on MVS: GIRISH/ATN Seen and examined. Vitals, labs, medications, chart reviewed. Discussed with nursing and respiratory staff. Remains critically ill on MVS,s/p HD yesterday via a left femoral Trialysis catheter Remains on Norepinephrine at 4 mcg PEEP +14/FIO2 90%, On Propofol and Fentanyl Objective Vital Signs - 12hr 07/03/20 07/03/20 07/03/20 15:30 15:45 16:00 Temperature Pulse Rate 126 H 129 H 129 H Respiratory 18 18 20 Rate Blood Pressure 99/51 96/46 97/44 O2 Sat by Pulse 95 94 94 Oximetry O2 Sat by Pulse Oximetry [ Anterior Bilateral Throughout] 07/03/20 07/03/20 07/03/20 16:15 16:30 16:45 Temperature Pulse Rate 129 H 101 H 102 H Respiratory 18 19 17 Rate Blood Pressure 96/45 89/39 94/48 O2 Sat by Pulse 95 95 96 Oximetry O2 Sat by Pulse Oximetry [ Anterior Bilateral Throughout] 07/03/20 07/03/20 07/03/20 17:00 17:15 17:30 Temperature Pulse Rate 113 H 110 H 105 H Respiratory 17 17 17 Rate Blood Pressure 106/51 109/53 109/48 O2 Sat by Pulse 97 97 97 Oximetry O2 Sat by Pulse Oximetry [ Anterior Bilateral Throughout] 07/03/20 07/03/20 07/03/20 17:45 17:50 18:00 Temperature 98.3 F Pulse Rate 101 H 106 H 118 H Respiratory 17 15 16 Rate Blood Pressure 110/49 110/49 107/52 O2 Sat by Pulse 98 98 Oximetry O2 Sat by Pulse 98 Oximetry [ Anterior Bilateral Throughout] 07/03/20 07/03/20 07/03/20 18:33 19:00 19:15 Temperature Pulse Rate 107 H 105 H 107 H Respiratory 17 17 Rate Blood Pressure 103/53 102/52 114/50 O2 Sat by Pulse 98 98 Oximetry O2 Sat by Pulse Oximetry [ Anterior Bilateral Throughout] 07/03/20 07/03/20 07/03/20 19:30 19:45 20:00 Temperature 98.4 F Pulse Rate 114 H 98 H 99 H Respiratory 17 16 17 Rate Blood Pressure 99/54 99/54 120/53 O2 Sat by Pulse 98 98 98 Oximetry O2 Sat by Pulse Oximetry [ Anterior Bilateral Throughout] 07/03/20 07/03/20 07/03/20 20:15 20:24 20:30 Temperature Pulse Rate 99 H 104 H 87 Respiratory 16 17 Rate Blood Pressure 101/56 101/56 120/54 O2 Sat by Pulse 97 97 99 Oximetry O2 Sat by Pulse Oximetry [ Anterior Bilateral Throughout] 07/03/20 07/03/20 07/03/20 20:45 20:49 21:00 Temperature Pulse Rate 105 H 96 H 97 H Respiratory 15 15 Rate Blood Pressure 119/57 122/57 O2 Sat by Pulse 97 97 Oximetry O2 Sat by Pulse Oximetry [ Anterior Bilateral Throughout] 07/03/20 07/03/20 07/03/20 21:15 21:30 21:45 Temperature Pulse Rate 103 H 106 H 98 H Respiratory 15 15 16 Rate Blood Pressure 122/61 126/58 112/59 O2 Sat by Pulse 98 98 98 Oximetry O2 Sat by Pulse Oximetry [ Anterior Bilateral Throughout] 07/03/20 07/03/20 07/03/20 22:00 22:15 22:31 Temperature Pulse Rate 96 H 90 105 H Respiratory 19 19 29 H Rate Blood Pressure 129/58 129/58 133/92 O2 Sat by Pulse 98 86 Oximetry O2 Sat by Pulse Oximetry [ Anterior Bilateral Throughout] 07/03/20 07/03/20 07/03/20 22:45 22:57 23:01 Temperature Pulse Rate 102 H 98 H 101 H Respiratory 21 18 Rate Blood Pressure 151/73 151/73 139/61 O2 Sat by Pulse 95 98 98 Oximetry O2 Sat by Pulse Oximetry [ Anterior Bilateral Throughout] 07/03/20 07/03/20 07/03/20 23:15 23:17 23:31 Temperature Pulse Rate 105 H 104 H 98 H Respiratory 16 16 18 Rate Blood Pressure 141/63 141/63 129/61 O2 Sat by Pulse 99 99 99 Oximetry O2 Sat by Pulse Oximetry [ Anterior Bilateral Throughout] 07/03/20 07/03/20 07/04/20 23:45 23:57 00:00 Temperature 98.6 F Pulse Rate 105 H Respiratory 17 Rate Blood Pressure 134/64 O2 Sat by Pulse 99 98 Oximetry O2 Sat by Pulse Oximetry [ Anterior Bilateral Throughout] 07/04/20 07/04/20 07/04/20 00:01 00:15 00:30 Temperature Pulse Rate 95 H 100 H 115 H Respiratory 15 16 18 Rate Blood Pressure 126/53 127/58 118/61 O2 Sat by Pulse 99 98 98 Oximetry O2 Sat by Pulse Oximetry [ Anterior Bilateral Throughout] Constitutional: appears uncomfortable, other (morbidly obese, atraumatic, normocephalic, mild resp distress, orally intuabted) Eyes: non-icteric ENT: oropharynx moist, other (ETT 24 cm TROY, oral ulcers with some bleeding) Neck: supple, no lymphadenopathy, other (Large , short neck) Effort: mildly labored Ascultation: Bilateral: diminished breath sounds, rhonchi (scant) Percussion: Bilateral: not dull Cardiovascular: irregular rhythm, other (S1,S2) Gastrointestinal: normoactive bowel sounds, non-distended (protuberant), other (OG Tube) Integumentary: rash, other (Femoral CVC, Newell catheter, FMS) Extremities: no edema, pink and warm, pulses normal, no ischemia or petechiae, edema (trace to 1+) Neurologic: non-focal exam (grossly), pupils equal and round, other (unable to assess, sedated) Psychiatric: other (unable to assess, sedated) CBC and BMP: 07/06/20 11:35 07/06/20 11:35 ABG, PT/INR, D-dimer: ABG ABG pH 7.399 (7.320-7.450) 07/03/20 03:54 POC ABG pCO2 39.6 mmHg (32.0-48.0) 07/03/20 03:54 POC ABG pO2 66.1 mmHg (83-108) L 07/03/20 03:54 POC ABG HCO3 23.9 07/03/20 03:54 PT/INR, D-dimer PT 17.4 Sec. (12.2-14.9) H 06/26/20 05:47 INR 1.44 (0.87-1.13) H 06/26/20 05:47 D-Dimer 6608.00 ng/mlDDU (0-234) H 07/03/20 14:50 Abnormal lab findings: Abnormal Labs 06/17/20 06/17/20 06/17/20 12:33 12:33 12:33 WBC 19.5 H RBC 5.18 H Hgb 15.5 H Hct RDW Lymph % (Auto) 3.8 L Lymph # (Auto) 0.7 L [place] # (Auto) Seg Neuts % (Manual) 99.0 H Lymphocytes % (Manual) 1.0 L Nucleated RBC % Seg Neutrophils # 18.2 H Seg Neutrophils # Man 19.3 H Lymphocytes # (Manual) 0.2 L Monocytes # (Manual) PT 16.5 H INR 1.33 H APTT D-Dimer 1025.04 H Heparin Anti-Xa Level ABG pH POC ABG pCO2 POC ABG pO2 ABG Hemoglobin ABG Oxyhemoglobin ABG Sodium ABG Potassium ABG Chloride ABG Glucose Carboxyhemoglobin Sodium 130 L Potassium 3.4 L Chloride 95.0 L Carbon Dioxide BUN 21 H Creatinine Glucose 137 H POC Glucose Lactic Acid Calcium 7.9 L Phosphorus Magnesium Ferritin Direct Bilirubin AST 84 H ALT 67 H Lactate Dehydrogenase 437 H Total Creatine Kinase 310 H C-Reactive Protein 27.90 H Total Protein Albumin 2.9 L Triglycerides Arterial Blood Glucose Arterial Blood Ionized Calcium Urine Creatinine Urine Chloride Vancomycin Trough Coronavirus (PCR) Crossmatch 06/17/20 06/17/20 06/17/20 12:33 12:33 14:48 WBC RBC Hgb Hct RDW Lymph % (Auto) Lymph # (Auto) [place] # (Auto) Seg Neuts % (Manual) Lymphocytes % (Manual) Nucleated RBC % Seg Neutrophils # Seg Neutrophils # Man Lymphocytes # (Manual) Monocytes # (Manual) PT INR APTT D-Dimer Heparin Anti-Xa Level ABG pH POC ABG pCO2 POC ABG pO2 ABG Hemoglobin ABG Oxyhemoglobin ABG Sodium ABG Potassium ABG Chloride ABG Glucose Carboxyhemoglobin Sodium Potassium Chloride Carbon Dioxide BUN Creatinine Glucose POC Glucose Lactic Acid 2.50 H* 2.20 H* Calcium Phosphorus Magnesium Ferritin 2297.0 H Direct Bilirubin AST ALT Lactate Dehydrogenase Total Creatine Kinase C-Reactive Protein Total Protein Albumin Triglycerides Arterial Blood Glucose Arterial Blood Ionized Calcium Urine Creatinine Urine Chloride Vancomycin Trough Coronavirus (PCR) Crossmatch 06/17/20 06/17/20 06/17/20 14:48 14:48 14:48 WBC RBC Hgb Hct RDW Lymph % (Auto) Lymph # (Auto) [place] # (Auto) Seg Neuts % (Manual) Lymphocytes % (Manual) Nucleated RBC % Seg Neutrophils # Seg Neutrophils # Man Lymphocytes # (Manual) Monocytes # (Manual) PT INR APTT D-Dimer 939.89 H Heparin Anti-Xa Level ABG pH POC ABG pCO2 POC ABG pO2 ABG Hemoglobin ABG Oxyhemoglobin ABG Sodium ABG Potassium ABG Chloride ABG Glucose Carboxyhemoglobin Sodium Potassium Chloride Carbon Dioxide BUN Creatinine Glucose 141 H POC Glucose Lactic Acid Calcium Phosphorus Magnesium Ferritin > 2000.0 H Direct Bilirubin AST ALT Lactate Dehydrogenase 503 H Total Creatine Kinase C-Reactive Protein 24.70 H Total Protein Albumin Triglycerides Arterial Blood Glucose Arterial Blood Ionized Calcium Urine Creatinine Urine Chloride Vancomycin Trough Coronavirus (PCR) Crossmatch 06/17/20 06/17/20 06/17/20 16:54 19:39 23:43 WBC RBC Hgb Hct RDW Lymph % (Auto) Lymph # (Auto) [place] # (Auto) Seg Neuts % (Manual) Lymphocytes % (Manual) Nucleated RBC % Seg Neutrophils # Seg Neutrophils # Man Lymphocytes # (Manual) Monocytes # (Manual) PT INR APTT D-Dimer Heparin Anti-Xa Level ABG pH 7.571 H POC ABG pCO2 24.3 L POC ABG pO2 41.6 L ABG Hemoglobin ABG Oxyhemoglobin 84.0 L ABG Sodium 131.0 L ABG Potassium ABG Chloride ABG Glucose 163 H Carboxyhemoglobin Sodium Potassium Chloride Carbon Dioxide BUN Creatinine Glucose POC Glucose 185 H Lactic Acid 2.10 H* Calcium Phosphorus Magnesium Ferritin Direct Bilirubin AST ALT Lactate Dehydrogenase Total Creatine Kinase C-Reactive Protein Total Protein Albumin Triglycerides Arterial Blood Glucose 163 H Arterial Blood Ionized Calcium 4.4 L Urine Creatinine Urine Chloride Vancomycin Trough Coronavirus (PCR) Crossmatch 06/18/20 06/18/20 06/18/20 00:17 00:23 03:55 WBC RBC Hgb Hct RDW Lymph % (Auto) Lymph # (Auto) [place] # (Auto) Seg Neuts % (Manual) Lymphocytes % (Manual) Nucleated RBC % Seg Neutrophils # Seg Neutrophils # Man Lymphocytes # (Manual) Monocytes # (Manual) PT INR APTT D-Dimer Heparin Anti-Xa Level ABG pH POC ABG pCO2 POC ABG pO2 56.5 L 48.3 L ABG Hemoglobin ABG Oxyhemoglobin 86.3 L 81.7 L ABG Sodium 132.9 L 131.0 L ABG Potassium ABG Chloride ABG Glucose 189 H 161 H Carboxyhemoglobin 0.4 L Sodium Potassium Chloride Carbon Dioxide BUN Creatinine Glucose POC Glucose Lactic Acid 3.80 H* Calcium Phosphorus Magnesium Ferritin Direct Bilirubin AST ALT Lactate Dehydrogenase Total Creatine Kinase C-Reactive Protein Total Protein Albumin Triglycerides Arterial Blood Glucose 189 H 161 H Arterial Blood Ionized Calcium 4.3 L 4.2 L Urine Creatinine Urine Chloride Vancomycin Trough Coronavirus (PCR) Crossmatch 06/18/20 06/18/20 06/18/20 05:39 05:39 05:39 WBC 26.2 H RBC Hgb Hct RDW Lymph % (Auto) Lymph # (Auto) [place] # (Auto) Seg Neuts % (Manual) 90.0 H Lymphocytes % (Manual) 5.0 L Nucleated RBC % Seg Neutrophils # Seg Neutrophils # Man 23.6 H Lymphocytes # (Manual) Monocytes # (Manual) 1.3 H PT INR APTT D-Dimer Heparin Anti-Xa Level ABG pH POC ABG pCO2 POC ABG pO2 ABG Hemoglobin ABG Oxyhemoglobin ABG Sodium ABG Potassium ABG Chloride ABG Glucose Carboxyhemoglobin Sodium 135 L Potassium Chloride 97.5 L Carbon Dioxide 21 L BUN 39 H Creatinine 1.7 H D Glucose 168 H POC Glucose Lactic Acid 3.40 H* Calcium 7.2 L Phosphorus Magnesium Ferritin Direct Bilirubin AST ALT Lactate Dehydrogenase Total Creatine Kinase C-Reactive Protein Total Protein Albumin Triglycerides Arterial Blood Glucose Arterial Blood Ionized Calcium Urine Creatinine Urine Chloride Vancomycin Trough Coronavirus (PCR) Crossmatch 06/18/20 06/18/20 06/18/20 07:24 09:00 10:10 WBC RBC Hgb Hct RDW Lymph % (Auto) Lymph # (Auto) [place] # (Auto) Seg Neuts % (Manual) Lymphocytes % (Manual) Nucleated RBC % Seg Neutrophils # Seg Neutrophils # Man Lymphocytes # (Manual) Monocytes # (Manual) PT INR APTT D-Dimer Heparin Anti-Xa Level ABG pH POC ABG pCO2 POC ABG pO2 ABG Hemoglobin ABG Oxyhemoglobin ABG Sodium ABG Potassium ABG Chloride ABG Glucose Carboxyhemoglobin Sodium Potassium Chloride Carbon Dioxide BUN Creatinine Glucose POC Glucose Lactic Acid 2.90 H* 3.20 H* Calcium Phosphorus Magnesium Ferritin Direct Bilirubin AST ALT Lactate Dehydrogenase Total Creatine Kinase C-Reactive Protein Total Protein Albumin Triglycerides Arterial Blood Glucose Arterial Blood Ionized Calcium Urine Creatinine Urine Chloride Vancomycin Trough Coronavirus (PCR) Positive A Crossmatch 06/18/20 06/18/20 06/18/20 11:58 14:43 15:00 WBC RBC Hgb Hct RDW Lymph % (Auto) Lymph # (Auto) [place] # (Auto) Seg Neuts % (Manual) Lymphocytes % (Manual) Nucleated RBC % Seg Neutrophils # Seg Neutrophils # Man Lymphocytes # (Manual) Monocytes # (Manual) PT INR APTT D-Dimer Heparin Anti-Xa Level ABG pH 7.303 L POC ABG pCO2 POC ABG pO2 82.3 L ABG Hemoglobin ABG Oxyhemoglobin ABG Sodium 135.3 L ABG Potassium ABG Chloride ABG Glucose 215 H Carboxyhemoglobin 0.3 L Sodium Potassium Chloride Carbon Dioxide BUN Creatinine Glucose POC Glucose 209 H Lactic Acid Calcium Phosphorus Magnesium Ferritin Direct Bilirubin AST ALT Lactate Dehydrogenase Total Creatine Kinase C-Reactive Protein Total Protein Albumin Triglycerides Arterial Blood Glucose 215 H Arterial Blood Ionized Calcium 4.2 L Urine Creatinine 192.4 H Urine Chloride 31.1 L Vancomycin Trough Coronavirus (PCR) Crossmatch 06/18/20 06/18/20 06/18/20 17:16 19:44 20:33 WBC RBC Hgb Hct RDW Lymph % (Auto) Lymph # (Auto) [place] # (Auto) Seg Neuts % (Manual) Lymphocytes % (Manual) Nucleated RBC % Seg Neutrophils # Seg Neutrophils # Man Lymphocytes # (Manual) Monocytes # (Manual) PT INR APTT D-Dimer Heparin Anti-Xa Level ABG pH POC ABG pCO2 POC ABG pO2 ABG Hemoglobin ABG Oxyhemoglobin ABG Sodium ABG Potassium ABG Chloride ABG Glucose Carboxyhemoglobin Sodium Potassium Chloride Carbon Dioxide BUN Creatinine Glucose POC Glucose 182 H Lactic Acid 3.00 H* Calcium Phosphorus Magnesium 2.70 H Ferritin Direct Bilirubin AST ALT Lactate Dehydrogenase Total Creatine Kinase C-Reactive Protein Total Protein Albumin Triglycerides Arterial Blood Glucose Arterial Blood Ionized Calcium Urine Creatinine Urine Chloride Vancomycin Trough Coronavirus (PCR) Crossmatch 06/18/20 06/19/20 06/19/20 23:43 04:00 04:00 WBC 31.6 H RBC Hgb Hct RDW Lymph % (Auto) Lymph # (Auto) [place] # (Auto) Seg Neuts % (Manual) 98.0 H Lymphocytes % (Manual) 0.5 L Nucleated RBC % Seg Neutrophils # Seg Neutrophils # Man 31.0 H Lymphocytes # (Manual) 0.2 L Monocytes # (Manual) PT INR APTT D-Dimer Heparin Anti-Xa Level ABG pH POC ABG pCO2 POC ABG pO2 ABG Hemoglobin ABG Oxyhemoglobin ABG Sodium ABG Potassium ABG Chloride ABG Glucose Carboxyhemoglobin Sodium Potassium Chloride Carbon Dioxide BUN 56 H Creatinine 1.6 H Glucose 176 H POC Glucose 149 H Lactic Acid Calcium 7.0 L Phosphorus Magnesium Ferritin Direct Bilirubin AST 244 H ALT 159 H Lactate Dehydrogenase Total Creatine Kinase C-Reactive Protein Total Protein 4.9 L D Albumin 2.5 L Triglycerides Arterial Blood Glucose Arterial Blood Ionized Calcium Urine Creatinine Urine Chloride Vancomycin Trough Coronavirus (PCR) Crossmatch 06/19/20 06/19/20 06/19/20 04:00 05:44 11:42 WBC RBC Hgb Hct RDW Lymph % (Auto) Lymph # (Auto) [place] # (Auto) Seg Neuts % (Manual) Lymphocytes % (Manual) Nucleated RBC % Seg Neutrophils # Seg Neutrophils # Man Lymphocytes # (Manual) Monocytes # (Manual) PT INR APTT D-Dimer Heparin Anti-Xa Level ABG pH 7.265 L POC ABG pCO2 51.8 H POC ABG pO2 65.1 L ABG Hemoglobin ABG Oxyhemoglobin ABG Sodium ABG Potassium ABG Chloride ABG Glucose 184 H Carboxyhemoglobin Sodium Potassium Chloride Carbon Dioxide BUN Creatinine Glucose POC Glucose 156 H 191 H Lactic Acid Calcium Phosphorus Magnesium Ferritin Direct Bilirubin AST ALT Lactate Dehydrogenase Total Creatine Kinase C-Reactive Protein Total Protein Albumin Triglycerides Arterial Blood Glucose 184 H Arterial Blood Ionized Calcium 4.3 L Urine Creatinine Urine Chloride Vancomycin Trough Coronavirus (PCR) Crossmatch 06/19/20 06/19/20 06/19/20 12:30 17:16 18:36 WBC RBC Hgb Hct RDW Lymph % (Auto) Lymph # (Auto) [place] # (Auto) Seg Neuts % (Manual) Lymphocytes % (Manual) Nucleated RBC % Seg Neutrophils # Seg Neutrophils # Man Lymphocytes # (Manual) Monocytes # (Manual) PT 16.4 H INR 1.32 H APTT D-Dimer Heparin Anti-Xa Level ABG pH 7.088 L POC ABG pCO2 78.1 H POC ABG pO2 208.3 H ABG Hemoglobin ABG Oxyhemoglobin 98.3 H ABG Sodium ABG Potassium 5.0 H ABG Chloride ABG Glucose 182 H Carboxyhemoglobin 0.4 L Sodium Potassium Chloride Carbon Dioxide BUN Creatinine Glucose POC Glucose 154 H Lactic Acid Calcium Phosphorus Magnesium Ferritin Direct Bilirubin AST ALT Lactate Dehydrogenase Total Creatine Kinase C-Reactive Protein Total Protein Albumin Triglycerides Arterial Blood Glucose 182 H Arterial Blood Ionized Calcium 4.3 L Urine Creatinine Urine Chloride Vancomycin Trough Coronavirus (PCR) Crossmatch 06/19/20 06/20/20 06/20/20 23:32 03:00 05:19 WBC RBC Hgb Hct RDW Lymph % (Auto) Lymph # (Auto) [place] # (Auto) Seg Neuts % (Manual) Lymphocytes % (Manual) Nucleated RBC % Seg Neutrophils # Seg Neutrophils # Man Lymphocytes # (Manual) Monocytes # (Manual) PT INR APTT D-Dimer Heparin Anti-Xa Level 0.77 H ABG pH POC ABG pCO2 POC ABG pO2 ABG Hemoglobin ABG Oxyhemoglobin ABG Sodium ABG Potassium ABG Chloride ABG Glucose Carboxyhemoglobin Sodium Potassium Chloride Carbon Dioxide BUN Creatinine Glucose POC Glucose 201 H 190 H Lactic Acid Calcium Phosphorus Magnesium Ferritin Direct Bilirubin AST ALT Lactate Dehydrogenase Total Creatine Kinase C-Reactive Protein Total Protein Albumin Triglycerides Arterial Blood Glucose Arterial Blood Ionized Calcium Urine Creatinine Urine Chloride Vancomycin Trough Coronavirus (PCR) Crossmatch 06/20/20 06/20/20 06/20/20 08:25 08:25 11:36 WBC RBC Hgb Hct RDW Lymph % (Auto) Lymph # (Auto) [place] # (Auto) Seg Neuts % (Manual) Lymphocytes % (Manual) Nucleated RBC % Seg Neutrophils # Seg Neutrophils # Man Lymphocytes # (Manual) Monocytes # (Manual) PT INR APTT D-Dimer Heparin Anti-Xa Level ABG pH POC ABG pCO2 POC ABG pO2 ABG Hemoglobin ABG Oxyhemoglobin ABG Sodium ABG Potassium ABG Chloride ABG Glucose Carboxyhemoglobin Sodium 135 L Potassium 5.4 H Chloride 109.2 H Carbon Dioxide 19 L BUN 68 H Creatinine 2.5 H D Glucose 201 H POC Glucose 184 H Lactic Acid Calcium 5.5 L* D Phosphorus Magnesium Ferritin Direct Bilirubin AST 123 H ALT 86 H Lactate Dehydrogenase Total Creatine Kinase C-Reactive Protein Total Protein 4.6 L Albumin 1.5 L Triglycerides Arterial Blood Glucose Arterial Blood Ionized Calcium Urine Creatinine Urine Chloride Vancomycin Trough 22.7 H Coronavirus (PCR) Crossmatch 06/20/20 06/20/20 06/20/20 11:40 17:28 20:00 WBC RBC Hgb Hct RDW Lymph % (Auto) Lymph # (Auto) [place] # (Auto) Seg Neuts % (Manual) Lymphocytes % (Manual) Nucleated RBC % Seg Neutrophils # Seg Neutrophils # Man Lymphocytes # (Manual) Monocytes # (Manual) PT INR APTT D-Dimer Heparin Anti-Xa Level 0.89 H ABG pH 7.099 L POC ABG pCO2 61.1 H POC ABG pO2 ABG Hemoglobin ABG Oxyhemoglobin ABG Sodium ABG Potassium 5.0 H ABG Chloride 111.0 H ABG Glucose 200 H Carboxyhemoglobin 0.4 L Sodium Potassium Chloride Carbon Dioxide BUN Creatinine Glucose POC Glucose 165 H Lactic Acid Calcium Phosphorus Magnesium Ferritin Direct Bilirubin AST ALT Lactate Dehydrogenase Total Creatine Kinase C-Reactive Protein Total Protein Albumin Triglycerides Arterial Blood Glucose 200 H Arterial Blood Ionized Calcium 4.2 L Urine Creatinine Urine Chloride Vancomycin Trough Coronavirus (PCR) Crossmatch 06/20/20 06/21/20 06/21/20 23:29 05:00 05:20 WBC RBC Hgb Hct RDW Lymph % (Auto) Lymph # (Auto) [place] # (Auto) Seg Neuts % (Manual) Lymphocytes % (Manual) Nucleated RBC % Seg Neutrophils # Seg Neutrophils # Man Lymphocytes # (Manual) Monocytes # (Manual) PT INR APTT D-Dimer Heparin Anti-Xa Level ABG pH POC ABG pCO2 POC ABG pO2 ABG Hemoglobin ABG Oxyhemoglobin ABG Sodium ABG Potassium ABG Chloride ABG Glucose Carboxyhemoglobin Sodium Potassium Chloride 112.0 H Carbon Dioxide 20 L BUN 92 H Creatinine 3.9 H D Glucose 214 H POC Glucose 145 H 191 H Lactic Acid Calcium 6.5 L D Phosphorus Magnesium Ferritin Direct Bilirubin AST 98 H ALT 84 H Lactate Dehydrogenase Total Creatine Kinase C-Reactive Protein Total Protein 4.6 L Albumin 2.1 L Triglycerides 180 H Arterial Blood Glucose Arterial Blood Ionized Calcium Urine Creatinine Urine Chloride Vancomycin Trough Coronavirus (PCR) Crossmatch 06/21/20 06/21/20 06/21/20 08:56 11:12 12:43 WBC RBC Hgb Hct RDW Lymph % (Auto) Lymph # (Auto) [place] # (Auto) Seg Neuts % (Manual) Lymphocytes % (Manual) Nucleated RBC % Seg Neutrophils # Seg Neutrophils # Man Lymphocytes # (Manual) Monocytes # (Manual) PT INR APTT D-Dimer Heparin Anti-Xa Level 0.28 L ABG pH 7.184 L POC ABG pCO2 48.3 H POC ABG pO2 172.1 H ABG Hemoglobin ABG Oxyhemoglobin 98.7 H ABG Sodium ABG Potassium 4.9 H ABG Chloride 112.0 H ABG Glucose 196 H Carboxyhemoglobin 0.2 L Sodium Potassium Chloride Carbon Dioxide BUN Creatinine Glucose POC Glucose 177 H Lactic Acid Calcium Phosphorus Magnesium Ferritin Direct Bilirubin AST ALT Lactate Dehydrogenase Total Creatine Kinase C-Reactive Protein Total Protein Albumin Triglycerides Arterial Blood Glucose 196 H Arterial Blood Ionized Calcium 4.1 L Urine Creatinine Urine Chloride Vancomycin Trough Coronavirus (PCR) Crossmatch 06/21/20 06/21/20 06/22/20 16:31 Unknown 00:12 WBC RBC Hgb Hct RDW Lymph % (Auto) Lymph # (Auto) [place] # (Auto) Seg Neuts % (Manual) Lymphocytes % (Manual) Nucleated RBC % Seg Neutrophils # Seg Neutrophils # Man Lymphocytes # (Manual) Monocytes # (Manual) PT INR APTT D-Dimer Heparin Anti-Xa Level 0.78 H ABG pH POC ABG pCO2 POC ABG pO2 ABG Hemoglobin ABG Oxyhemoglobin ABG Sodium ABG Potassium ABG Chloride ABG Glucose Carboxyhemoglobin Sodium Potassium Chloride Carbon Dioxide BUN Creatinine Glucose POC Glucose 150 H 173 H Lactic Acid Calcium Phosphorus Magnesium Ferritin Direct Bilirubin AST ALT Lactate Dehydrogenase Total Creatine Kinase C-Reactive Protein Total Protein Albumin Triglycerides Arterial Blood Glucose Arterial Blood Ionized Calcium Urine Creatinine Urine Chloride Vancomycin Trough Coronavirus (PCR) Crossmatch 06/22/20 06/22/20 06/22/20 04:00 05:04 05:30 WBC 33.9 H RBC Hgb 11.7 L Hct 35.2 L RDW 15.8 H Lymph % (Auto) Lymph # (Auto) [place] # (Auto) Seg Neuts % (Manual) 93.0 H Lymphocytes % (Manual) 5.0 L Nucleated RBC % Seg Neutrophils # Seg Neutrophils # Man 31.5 H Lymphocytes # (Manual) Monocytes # (Manual) PT INR APTT D-Dimer Heparin Anti-Xa Level ABG pH 7.169 L POC ABG pCO2 POC ABG pO2 ABG Hemoglobin ABG Oxyhemoglobin ABG Sodium ABG Potassium 5.1 H ABG Chloride 112.0 H ABG Glucose 186 H Carboxyhemoglobin 0.3 L Sodium Potassium Chloride Carbon Dioxide BUN Creatinine Glucose POC Glucose 161 H Lactic Acid Calcium Phosphorus Magnesium Ferritin Direct Bilirubin AST ALT Lactate Dehydrogenase Total Creatine Kinase C-Reactive Protein Total Protein Albumin Triglycerides Arterial Blood Glucose 186 H Arterial Blood Ionized Calcium 4.1 L Urine Creatinine Urine Chloride Vancomycin Trough Coronavirus (PCR) Crossmatch 06/22/20 06/22/20 06/22/20 05:30 11:39 13:27 WBC RBC Hgb Hct RDW Lymph % (Auto) Lymph # (Auto) [place] # (Auto) Seg Neuts % (Manual) Lymphocytes % (Manual) Nucleated RBC % Seg Neutrophils # Seg Neutrophils # Man Lymphocytes # (Manual) Monocytes # (Manual) PT INR APTT D-Dimer Heparin Anti-Xa Level ABG pH POC ABG pCO2 POC ABG pO2 ABG Hemoglobin ABG Oxyhemoglobin ABG Sodium ABG Potassium ABG Chloride ABG Glucose Carboxyhemoglobin Sodium Potassium 5.7 H Chloride 111.3 H Carbon Dioxide 18 L BUN 112 H Creatinine 5.0 H Glucose 173 H POC Glucose 172 H 176 H Lactic Acid Calcium 6.7 L Phosphorus Magnesium Ferritin Direct Bilirubin AST ALT Lactate Dehydrogenase Total Creatine Kinase C-Reactive Protein Total Protein Albumin Triglycerides Arterial Blood Glucose Arterial Blood Ionized Calcium Urine Creatinine Urine Chloride Vancomycin Trough Coronavirus (PCR) Crossmatch 06/22/20 06/22/20 06/22/20 14:37 17:00 17:40 WBC RBC Hgb Hct RDW Lymph % (Auto) Lymph # (Auto) [place] # (Auto) Seg Neuts % (Manual) Lymphocytes % (Manual) Nucleated RBC % Seg Neutrophils # Seg Neutrophils # Man Lymphocytes # (Manual) Monocytes # (Manual) PT INR APTT D-Dimer Heparin Anti-Xa Level 1.32 H ABG pH POC ABG pCO2 POC ABG pO2 ABG Hemoglobin ABG Oxyhemoglobin ABG Sodium ABG Potassium ABG Chloride ABG Glucose Carboxyhemoglobin Sodium Potassium Chloride Carbon Dioxide BUN Creatinine Glucose POC Glucose 171 H Lactic Acid Calcium Phosphorus Magnesium Ferritin Direct Bilirubin AST ALT Lactate Dehydrogenase Total Creatine Kinase C-Reactive Protein 5.30 H Total Protein Albumin Triglycerides Arterial Blood Glucose Arterial Blood Ionized Calcium Urine Creatinine Urine Chloride Vancomycin Trough Coronavirus (PCR) Crossmatch 06/22/20 06/23/20 06/23/20 23:36 02:13 02:41 WBC RBC Hgb Hct RDW Lymph % (Auto) Lymph # (Auto) [place] # (Auto) Seg Neuts % (Manual) Lymphocytes % (Manual) Nucleated RBC % Seg Neutrophils # Seg Neutrophils # Man Lymphocytes # (Manual) Monocytes # (Manual) PT INR APTT D-Dimer Heparin Anti-Xa Level 0.21 L ABG pH 7.318 L POC ABG pCO2 POC ABG pO2 157.5 H ABG Hemoglobin ABG Oxyhemoglobin ABG Sodium 135.6 L ABG Potassium 4.6 H ABG Chloride 110.0 H ABG Glucose 169 H Carboxyhemoglobin Sodium Potassium Chloride Carbon Dioxide BUN Creatinine Glucose POC Glucose 155 H Lactic Acid Calcium Phosphorus Magnesium Ferritin Direct Bilirubin AST ALT Lactate Dehydrogenase Total Creatine Kinase C-Reactive Protein Total Protein Albumin Triglycerides Arterial Blood Glucose 169 H Arterial Blood Ionized Calcium Urine Creatinine Urine Chloride Vancomycin Trough Coronavirus (PCR) Crossmatch 06/23/20 06/23/20 06/23/20 04:00 04:00 05:24 WBC 27.4 H RBC Hgb 11.3 L Hct 33.8 L RDW Lymph % (Auto) Lymph # (Auto) [place] # (Auto) Seg Neuts % (Manual) 93.0 H Lymphocytes % (Manual) 1.0 L Nucleated RBC % 1.0 H Seg Neutrophils # Seg Neutrophils # Man 25.5 H Lymphocytes # (Manual) 0.3 L Monocytes # (Manual) 1.1 H PT INR APTT D-Dimer Heparin Anti-Xa Level ABG pH POC ABG pCO2 POC ABG pO2 ABG Hemoglobin ABG Oxyhemoglobin ABG Sodium ABG Potassium ABG Chloride ABG Glucose Carboxyhemoglobin Sodium Potassium Chloride 107.6 H Carbon Dioxide 20 L BUN 100 H Creatinine 4.7 H Glucose 168 H POC Glucose 151 H Lactic Acid Calcium Phosphorus Magnesium Ferritin Direct Bilirubin AST ALT Lactate Dehydrogenase Total Creatine Kinase C-Reactive Protein Total Protein Albumin Triglycerides Arterial Blood Glucose Arterial Blood Ionized Calcium Urine Creatinine Urine Chloride Vancomycin Trough Coronavirus (PCR) Crossmatch 06/23/20 06/23/20 06/23/20 11:30 17:18 23:50 WBC RBC Hgb Hct RDW Lymph % (Auto) Lymph # (Auto) [place] # (Auto) Seg Neuts % (Manual) Lymphocytes % (Manual) Nucleated RBC % Seg Neutrophils # Seg Neutrophils # Man Lymphocytes # (Manual) Monocytes # (Manual) PT INR APTT D-Dimer Heparin Anti-Xa Level ABG pH POC ABG pCO2 POC ABG pO2 ABG Hemoglobin ABG Oxyhemoglobin ABG Sodium ABG Potassium ABG Chloride ABG Glucose Carboxyhemoglobin Sodium Potassium Chloride Carbon Dioxide BUN Creatinine Glucose POC Glucose 157 H 156 H 162 H Lactic Acid Calcium Phosphorus Magnesium Ferritin Direct Bilirubin AST ALT Lactate Dehydrogenase Total Creatine Kinase C-Reactive Protein Total Protein Albumin Triglycerides Arterial Blood Glucose Arterial Blood Ionized Calcium Urine Creatinine Urine Chloride Vancomycin Trough Coronavirus (PCR) Crossmatch 06/24/20 06/24/20 06/24/20 04:41 05:57 06:30 WBC 34.3 H RBC Hgb 10.9 L Hct 32.6 L RDW Lymph % (Auto) 2.0 L Lymph # (Auto) 0.7 L [place] # (Auto) 1.2 H Seg Neuts % (Manual) 96.0 H Lymphocytes % (Manual) 3.0 L Nucleated RBC % Seg Neutrophils # 32.3 H Seg Neutrophils # Man 32.9 H Lymphocytes # (Manual) 1.0 L Monocytes # (Manual) PT INR APTT D-Dimer Heparin Anti-Xa Level ABG pH POC ABG pCO2 POC ABG pO2 71.1 L ABG Hemoglobin ABG Oxyhemoglobin 92.4 L ABG Sodium 115.6 L ABG Potassium ABG Chloride ABG Glucose 159 H Carboxyhemoglobin Sodium Potassium Chloride Carbon Dioxide BUN Creatinine Glucose POC Glucose 143 H Lactic Acid Calcium Phosphorus Magnesium Ferritin Direct Bilirubin AST ALT Lactate Dehydrogenase Total Creatine Kinase C-Reactive Protein Total Protein Albumin Triglycerides Arterial Blood Glucose 159 H Arterial Blood Ionized Calcium 4.2 L Urine Creatinine Urine Chloride Vancomycin Trough Coronavirus (PCR) Crossmatch 06/24/20 06/24/20 06/24/20 07:03 09:37 11:56 WBC RBC Hgb Hct RDW Lymph % (Auto) Lymph # (Auto) [place] # (Auto) Seg Neuts % (Manual) Lymphocytes % (Manual) Nucleated RBC % Seg Neutrophils # Seg Neutrophils # Man Lymphocytes # (Manual) Monocytes # (Manual) PT INR APTT D-Dimer Heparin Anti-Xa Level 0.26 L ABG pH POC ABG pCO2 POC ABG pO2 ABG Hemoglobin ABG Oxyhemoglobin ABG Sodium ABG Potassium ABG Chloride ABG Glucose Carboxyhemoglobin Sodium Potassium 5.1 H Chloride Carbon Dioxide BUN 103 H Creatinine 5.0 H Glucose 163 H POC Glucose 149 H Lactic Acid Calcium 7.6 L Phosphorus Magnesium Ferritin Direct Bilirubin AST ALT Lactate Dehydrogenase Total Creatine Kinase C-Reactive Protein Total Protein Albumin Triglycerides Arterial Blood Glucose Arterial Blood Ionized Calcium Urine Creatinine Urine Chloride Vancomycin Trough Coronavirus (PCR) Crossmatch 06/24/20 06/25/20 06/25/20 18:09 01:05 03:00 WBC RBC Hgb 10.6 L Hct 32.1 L RDW Lymph % (Auto) Lymph # (Auto) [place] # (Auto) Seg Neuts % (Manual) Lymphocytes % (Manual) Nucleated RBC % Seg Neutrophils # Seg Neutrophils # Man Lymphocytes # (Manual) Monocytes # (Manual) PT INR APTT D-Dimer Heparin Anti-Xa Level ABG pH POC ABG pCO2 POC ABG pO2 ABG Hemoglobin ABG Oxyhemoglobin ABG Sodium ABG Potassium ABG Chloride ABG Glucose Carboxyhemoglobin Sodium Potassium Chloride Carbon Dioxide BUN Creatinine Glucose POC Glucose 141 H 137 H Lactic Acid Calcium Phosphorus Magnesium Ferritin Direct Bilirubin AST ALT Lactate Dehydrogenase Total Creatine Kinase C-Reactive Protein Total Protein Albumin Triglycerides Arterial Blood Glucose Arterial Blood Ionized Calcium Urine Creatinine Urine Chloride Vancomycin Trough Coronavirus (PCR) Crossmatch 06/25/20 06/25/20 06/25/20 03:48 05:17 12:08 WBC RBC Hgb Hct RDW Lymph % (Auto) Lymph # (Auto) [place] # (Auto) Seg Neuts % (Manual) Lymphocytes % (Manual) Nucleated RBC % Seg Neutrophils # Seg Neutrophils # Man Lymphocytes # (Manual) Monocytes # (Manual) PT INR APTT D-Dimer Heparin Anti-Xa Level ABG pH POC ABG pCO2 29.4 L POC ABG pO2 67.1 L ABG Hemoglobin 11.5 L ABG Oxyhemoglobin ABG Sodium 124.1 L ABG Potassium 4.6 H ABG Chloride ABG Glucose 159 H Carboxyhemoglobin Sodium Potassium Chloride Carbon Dioxide BUN Creatinine Glucose POC Glucose 149 H 150 H Lactic Acid Calcium Phosphorus Magnesium Ferritin Direct Bilirubin AST ALT Lactate Dehydrogenase Total Creatine Kinase C-Reactive Protein Total Protein Albumin Triglycerides Arterial Blood Glucose 159 H Arterial Blood Ionized Calcium 4.2 L Urine Creatinine Urine Chloride Vancomycin Trough Coronavirus (PCR) Crossmatch 06/25/20 06/25/20 06/25/20 16:27 16:35 17:27 WBC RBC Hgb Hct RDW Lymph % (Auto) Lymph # (Auto) [place] # (Auto) Seg Neuts % (Manual) Lymphocytes % (Manual) Nucleated RBC % Seg Neutrophils # Seg Neutrophils # Man Lymphocytes # (Manual) Monocytes # (Manual) PT INR APTT D-Dimer Heparin Anti-Xa Level < 0.10 L ABG pH POC ABG pCO2 POC ABG pO2 ABG Hemoglobin ABG Oxyhemoglobin ABG Sodium ABG Potassium ABG Chloride ABG Glucose Carboxyhemoglobin Sodium Potassium Chloride Carbon Dioxide BUN Creatinine Glucose POC Glucose 143 H 156 H Lactic Acid Calcium Phosphorus Magnesium Ferritin Direct Bilirubin AST ALT Lactate Dehydrogenase Total Creatine Kinase C-Reactive Protein Total Protein Albumin Triglycerides Arterial Blood Glucose Arterial Blood Ionized Calcium Urine Creatinine Urine Chloride Vancomycin Trough Coronavirus (PCR) Crossmatch 06/25/20 06/25/20 06/25/20 20:00 20:55 23:10 WBC 32.7 H RBC 3.06 L Hgb 9.0 L 9.5 L Hct 26.7 L 28.6 L RDW Lymph % (Auto) Lymph # (Auto) [place] # (Auto) Seg Neuts % (Manual) Lymphocytes % (Manual) 2.0 L Nucleated RBC % Seg Neutrophils # Seg Neutrophils # Man 30.7 H Lymphocytes # (Manual) 0.7 L Monocytes # (Manual) 1.3 H PT 17.7 H INR 1.47 H APTT 65.8 H* D-Dimer Heparin Anti-Xa Level ABG pH POC ABG pCO2 POC ABG pO2 ABG Hemoglobin ABG Oxyhemoglobin ABG Sodium ABG Potassium ABG Chloride ABG Glucose Carboxyhemoglobin Sodium Potassium Chloride Carbon Dioxide BUN Creatinine Glucose POC Glucose Lactic Acid Calcium Phosphorus Magnesium Ferritin Direct Bilirubin AST ALT Lactate Dehydrogenase Total Creatine Kinase C-Reactive Protein Total Protein Albumin Triglycerides Arterial Blood Glucose Arterial Blood Ionized Calcium Urine Creatinine Urine Chloride Vancomycin Trough Coronavirus (PCR) Crossmatch 06/25/20 06/26/20 06/26/20 23:14 01:30 03:25 WBC RBC Hgb Hct RDW Lymph % (Auto) Lymph # (Auto) [place] # (Auto) Seg Neuts % (Manual) Lymphocytes % (Manual) Nucleated RBC % Seg Neutrophils # Seg Neutrophils # Man Lymphocytes # (Manual) Monocytes # (Manual) PT INR APTT D-Dimer Heparin Anti-Xa Level < 0.10 L ABG pH POC ABG pCO2 POC ABG pO2 ABG Hemoglobin 11.8 L ABG Oxyhemoglobin ABG Sodium 127.1 L ABG Potassium 5.4 H ABG Chloride ABG Glucose 155 H Carboxyhemoglobin 0.3 L Sodium Potassium Chloride Carbon Dioxide BUN Creatinine Glucose POC Glucose 148 H Lactic Acid Calcium Phosphorus Magnesium Ferritin Direct Bilirubin AST ALT Lactate Dehydrogenase Total Creatine Kinase C-Reactive Protein Total Protein Albumin Triglycerides Arterial Blood Glucose 155 H Arterial Blood Ionized Calcium 4.2 L Urine Creatinine Urine Chloride Vancomycin Trough Coronavirus (PCR) Crossmatch 06/26/20 06/26/20 06/26/20 03:59 05:14 05:47 WBC 36.5 H RBC 3.26 L Hgb 9.7 L Hct 28.2 L RDW Lymph % (Auto) Lymph # (Auto) [place] # (Auto) Seg Neuts % (Manual) 92.0 H Lymphocytes % (Manual) 4.0 L Nucleated RBC % Seg Neutrophils # Seg Neutrophils # Man 33.6 H Lymphocytes # (Manual) Monocytes # (Manual) PT INR APTT D-Dimer Heparin Anti-Xa Level ABG pH POC ABG pCO2 POC ABG pO2 ABG Hemoglobin ABG Oxyhemoglobin ABG Sodium ABG Potassium ABG Chloride ABG Glucose Carboxyhemoglobin Sodium Potassium 5.9 H Chloride Carbon Dioxide 20 L BUN 144 H Creatinine 6.4 H Glucose 149 H POC Glucose 128 H Lactic Acid Calcium 7.6 L Phosphorus Magnesium Ferritin Direct Bilirubin AST ALT Lactate Dehydrogenase Total Creatine Kinase C-Reactive Protein Total Protein Albumin Triglycerides Arterial Blood Glucose Arterial Blood Ionized Calcium Urine Creatinine Urine Chloride Vancomycin Trough Coronavirus (PCR) Crossmatch 06/26/20 06/26/20 06/26/20 05:47 12:47 17:42 WBC RBC Hgb Hct RDW Lymph % (Auto) Lymph # (Auto) [place] # (Auto) Seg Neuts % (Manual) Lymphocytes % (Manual) Nucleated RBC % Seg Neutrophils # Seg Neutrophils # Man Lymphocytes # (Manual) Monocytes # (Manual) PT 17.4 H INR 1.44 H APTT D-Dimer Heparin Anti-Xa Level ABG pH POC ABG pCO2 POC ABG pO2 ABG Hemoglobin ABG Oxyhemoglobin ABG Sodium ABG Potassium ABG Chloride ABG Glucose Carboxyhemoglobin Sodium Potassium Chloride Carbon Dioxide BUN Creatinine Glucose POC Glucose 124 H 127 H Lactic Acid Calcium Phosphorus Magnesium Ferritin Direct Bilirubin AST ALT Lactate Dehydrogenase Total Creatine Kinase C-Reactive Protein Total Protein Albumin Triglycerides Arterial Blood Glucose Arterial Blood Ionized Calcium Urine Creatinine Urine Chloride Vancomycin Trough Coronavirus (PCR) Crossmatch 06/26/20 06/27/20 06/27/20 23:30 03:32 04:00 WBC RBC Hgb 8.7 L Hct 26.4 L RDW Lymph % (Auto) Lymph # (Auto) [place] # (Auto) Seg Neuts % (Manual) Lymphocytes % (Manual) Nucleated RBC % Seg Neutrophils # Seg Neutrophils # Man Lymphocytes # (Manual) Monocytes # (Manual) PT INR APTT D-Dimer Heparin Anti-Xa Level ABG pH 7.298 L POC ABG pCO2 POC ABG pO2 ABG Hemoglobin 9.6 L ABG Oxyhemoglobin ABG Sodium 124.4 L ABG Potassium 6.6 H ABG Chloride ABG Glucose 136 H Carboxyhemoglobin Sodium Potassium Chloride Carbon Dioxide BUN Creatinine Glucose POC Glucose 123 H Lactic Acid Calcium Phosphorus Magnesium Ferritin Direct Bilirubin AST ALT Lactate Dehydrogenase Total Creatine Kinase C-Reactive Protein Total Protein Albumin Triglycerides Arterial Blood Glucose 136 H Arterial Blood Ionized Calcium 4.1 L Urine Creatinine Urine Chloride Vancomycin Trough Coronavirus (PCR) Crossmatch 06/27/20 06/27/20 06/27/20 05:26 10:14 11:58 WBC RBC Hgb Hct RDW Lymph % (Auto) Lymph # (Auto) [place] # (Auto) Seg Neuts % (Manual) Lymphocytes % (Manual) Nucleated RBC % Seg Neutrophils # Seg Neutrophils # Man Lymphocytes # (Manual) Monocytes # (Manual) PT INR APTT D-Dimer Heparin Anti-Xa Level ABG pH POC ABG pCO2 POC ABG pO2 ABG Hemoglobin ABG Oxyhemoglobin ABG Sodium ABG Potassium ABG Chloride ABG Glucose Carboxyhemoglobin Sodium 136 L Potassium 7.0 H* Chloride 97.8 L Carbon Dioxide BUN 172 H Creatinine 7.4 H Glucose 129 H POC Glucose 124 H 115 H Lactic Acid Calcium 7.6 L Phosphorus Magnesium Ferritin Direct Bilirubin AST ALT Lactate Dehydrogenase Total Creatine Kinase C-Reactive Protein Total Protein Albumin Triglycerides Arterial Blood Glucose Arterial Blood Ionized Calcium Urine Creatinine Urine Chloride Vancomycin Trough Coronavirus (PCR) Crossmatch 06/27/20 06/27/20 06/27/20 17:32 18:30 23:24 WBC RBC Hgb Hct RDW Lymph % (Auto) Lymph # (Auto) [place] # (Auto) Seg Neuts % (Manual) Lymphocytes % (Manual) Nucleated RBC % Seg Neutrophils # Seg Neutrophils # Man Lymphocytes # (Manual) Monocytes # (Manual) PT INR APTT D-Dimer Heparin Anti-Xa Level ABG pH POC ABG pCO2 POC ABG pO2 ABG Hemoglobin ABG Oxyhemoglobin ABG Sodium ABG Potassium ABG Chloride ABG Glucose Carboxyhemoglobin Sodium Potassium 7.3 H* Chloride Carbon Dioxide BUN Creatinine Glucose POC Glucose 122 H 116 H Lactic Acid Calcium Phosphorus Magnesium Ferritin Direct Bilirubin AST ALT Lactate Dehydrogenase Total Creatine Kinase C-Reactive Protein Total Protein Albumin Triglycerides Arterial Blood Glucose Arterial Blood Ionized Calcium Urine Creatinine Urine Chloride Vancomycin Trough Coronavirus (PCR) Crossmatch 06/28/20 06/28/20 06/28/20 00:00 02:16 05:37 WBC RBC Hgb Hct RDW Lymph % (Auto) Lymph # (Auto) [place] # (Auto) Seg Neuts % (Manual) Lymphocytes % (Manual) Nucleated RBC % Seg Neutrophils # Seg Neutrophils # Man Lymphocytes # (Manual) Monocytes # (Manual) PT INR APTT D-Dimer Heparin Anti-Xa Level ABG pH POC ABG pCO2 POC ABG pO2 79.0 L ABG Hemoglobin 11.7 L ABG Oxyhemoglobin ABG Sodium 128.1 L ABG Potassium 6.6 H ABG Chloride ABG Glucose 124 H Carboxyhemoglobin Sodium Potassium 7.3 H* Chloride Carbon Dioxide BUN Creatinine Glucose POC Glucose 115 H Lactic Acid Calcium Phosphorus Magnesium Ferritin Direct Bilirubin AST ALT Lactate Dehydrogenase Total Creatine Kinase C-Reactive Protein Total Protein Albumin Triglycerides Arterial Blood Glucose 124 H Arterial Blood Ionized Calcium 4.2 L Urine Creatinine Urine Chloride Vancomycin Trough Coronavirus (PCR) Crossmatch 06/28/20 06/28/20 06/28/20 10:03 10:03 11:51 WBC 33.6 H RBC 3.03 L Hgb 8.9 L Hct 27.0 L RDW Lymph % (Auto) Lymph # (Auto) [place] # (Auto) Seg Neuts % (Manual) Lymphocytes % (Manual) Nucleated RBC % Seg Neutrophils # Seg Neutrophils # Man Lymphocytes # (Manual) Monocytes # (Manual) PT INR APTT D-Dimer Heparin Anti-Xa Level ABG pH POC ABG pCO2 POC ABG pO2 ABG Hemoglobin ABG Oxyhemoglobin ABG Sodium ABG Potassium ABG Chloride ABG Glucose Carboxyhemoglobin Sodium 136 L Potassium 6.5 H* Chloride Carbon Dioxide 20 L BUN 129 H Creatinine 5.8 H Glucose 113 H POC Glucose 107 H Lactic Acid Calcium 7.6 L Phosphorus Magnesium Ferritin Direct Bilirubin AST ALT Lactate Dehydrogenase Total Creatine Kinase C-Reactive Protein Total Protein Albumin Triglycerides Arterial Blood Glucose Arterial Blood Ionized Calcium Urine Creatinine Urine Chloride Vancomycin Trough Coronavirus (PCR) Crossmatch 06/28/20 06/28/20 06/29/20 17:45 Unknown 03:15 WBC RBC Hgb Hct RDW Lymph % (Auto) Lymph # (Auto) [place] # (Auto) Seg Neuts % (Manual) Lymphocytes % (Manual) Nucleated RBC % Seg Neutrophils # Seg Neutrophils # Man Lymphocytes # (Manual) Monocytes # (Manual) PT INR APTT D-Dimer Heparin Anti-Xa Level ABG pH POC ABG pCO2 POC ABG pO2 ABG Hemoglobin 7.8 L ABG Oxyhemoglobin ABG Sodium 127.4 L ABG Potassium 5.5 H ABG Chloride 97.0 L ABG Glucose 96 H Carboxyhemoglobin Sodium Potassium 5.4 H Chloride Carbon Dioxide BUN Creatinine Glucose POC Glucose 117 H Lactic Acid Calcium Phosphorus Magnesium Ferritin Direct Bilirubin AST ALT Lactate Dehydrogenase Total Creatine Kinase C-Reactive Protein Total Protein Albumin Triglycerides Arterial Blood Glucose 96 H Arterial Blood Ionized Calcium 4.0 L Urine Creatinine Urine Chloride Vancomycin Trough Coronavirus (PCR) Crossmatch 06/29/20 06/29/20 06/29/20 03:45 Unknown Unknown WBC RBC Hgb Hct RDW Lymph % (Auto) Lymph # (Auto) [place] # (Auto) Seg Neuts % (Manual) Lymphocytes % (Manual) Nucleated RBC % Seg Neutrophils # Seg Neutrophils # Man Lymphocytes # (Manual) Monocytes # (Manual) PT INR APTT D-Dimer Heparin Anti-Xa Level ABG pH POC ABG pCO2 POC ABG pO2 ABG Hemoglobin ABG Oxyhemoglobin ABG Sodium ABG Potassium ABG Chloride ABG Glucose Carboxyhemoglobin Sodium 135 L Potassium 6.0 H 6.1 H* Chloride 94.8 L Carbon Dioxide BUN 109 H 114 H Creatinine 5.5 H Glucose POC Glucose Lactic Acid Calcium 7.4 L Phosphorus Magnesium Ferritin Direct Bilirubin AST 47 H ALT Lactate Dehydrogenase Total Creatine Kinase C-Reactive Protein Total Protein 4.9 L Albumin 2.2 L Triglycerides Arterial Blood Glucose Arterial Blood Ionized Calcium Urine Creatinine Urine Chloride Vancomycin Trough Coronavirus (PCR) Crossmatch 06/29/20 06/29/20 06/30/20 Unknown Unknown 03:32 WBC 20.7 H RBC 2.57 L Hgb 7.6 L Hct 23.0 L RDW Lymph % (Auto) Lymph # (Auto) [place] # (Auto) Seg Neuts % (Manual) Lymphocytes % (Manual) Nucleated RBC % Seg Neutrophils # Seg Neutrophils # Man Lymphocytes # (Manual) Monocytes # (Manual) PT INR APTT D-Dimer Heparin Anti-Xa Level ABG pH POC ABG pCO2 POC ABG pO2 ABG Hemoglobin 11.4 L ABG Oxyhemoglobin ABG Sodium 130.1 L ABG Potassium 5.0 H ABG Chloride ABG Glucose Carboxyhemoglobin Sodium Potassium Chloride Carbon Dioxide BUN Creatinine Glucose POC Glucose Lactic Acid Calcium Phosphorus Magnesium Ferritin Direct Bilirubin AST ALT Lactate Dehydrogenase Total Creatine Kinase 618 H C-Reactive Protein Total Protein Albumin Triglycerides Arterial Blood Glucose Arterial Blood Ionized Calcium 3.9 L Urine Creatinine Urine Chloride Vancomycin Trough Coronavirus (PCR) Crossmatch 06/30/20 06/30/20 06/30/20 03:50 03:50 11:39 WBC 13.1 H RBC Hgb Hct RDW Lymph % (Auto) Lymph # (Auto) [place] # (Auto) Seg Neuts % (Manual) 95.0 H Lymphocytes % (Manual) 3.0 L Nucleated RBC % Seg Neutrophils # Seg Neutrophils # Man 12.4 H Lymphocytes # (Manual) 0.4 L Monocytes # (Manual) PT INR APTT D-Dimer Heparin Anti-Xa Level ABG pH POC ABG pCO2 POC ABG pO2 ABG Hemoglobin ABG Oxyhemoglobin ABG Sodium ABG Potassium ABG Chloride ABG Glucose Carboxyhemoglobin Sodium 135 L Potassium 5.4 H D Chloride 93.6 L Carbon Dioxide BUN 85 H Creatinine 4.6 H Glucose POC Glucose 111 H Lactic Acid Calcium 7.1 L Phosphorus 9.40 H Magnesium Ferritin Direct Bilirubin AST ALT Lactate Dehydrogenase Total Creatine Kinase C-Reactive Protein Total Protein Albumin Triglycerides Arterial Blood Glucose Arterial Blood Ionized Calcium Urine Creatinine Urine Chloride Vancomycin Trough Coronavirus (PCR) Crossmatch 06/30/20 06/30/20 07/01/20 13:12 Unknown 03:19 WBC RBC Hgb 7.8 L D Hct 23.2 L D RDW Lymph % (Auto) Lymph # (Auto) [place] # (Auto) Seg Neuts % (Manual) Lymphocytes % (Manual) Nucleated RBC % Seg Neutrophils # Seg Neutrophils # Man Lymphocytes # (Manual) Monocytes # (Manual) PT INR APTT D-Dimer Heparin Anti-Xa Level ABG pH 7.461 H POC ABG pCO2 POC ABG pO2 77.2 L ABG Hemoglobin 6.9 L ABG Oxyhemoglobin ABG Sodium 128.5 L ABG Potassium ABG Chloride 97.0 L ABG Glucose Carboxyhemoglobin Sodium Potassium Chloride Carbon Dioxide BUN Creatinine Glucose POC Glucose Lactic Acid Calcium Phosphorus Magnesium Ferritin Direct Bilirubin AST ALT Lactate Dehydrogenase Total Creatine Kinase C-Reactive Protein Total Protein Albumin Triglycerides Arterial Blood Glucose Arterial Blood Ionized Calcium 3.7 L Urine Creatinine Urine Chloride Vancomycin Trough Coronavirus (PCR) Positive A Crossmatch 07/01/20 07/01/20 07/01/20 06:00 06:00 11:04 WBC 16.7 H RBC 2.16 L Hgb 6.4 L Hct 19.2 L* RDW Lymph % (Auto) Lymph # (Auto) [place] # (Auto) Seg Neuts % (Manual) Lymphocytes % (Manual) Nucleated RBC % Seg Neutrophils # Seg Neutrophils # Man Lymphocytes # (Manual) Monocytes # (Manual) PT INR APTT D-Dimer Heparin Anti-Xa Level ABG pH POC ABG pCO2 POC ABG pO2 ABG Hemoglobin ABG Oxyhemoglobin ABG Sodium ABG Potassium ABG Chloride ABG Glucose Carboxyhemoglobin Sodium 136 L Potassium Chloride 95.8 L Carbon Dioxide BUN 72 H Creatinine 4.3 H Glucose POC Glucose Lactic Acid Calcium 6.7 L Phosphorus Magnesium Ferritin Direct Bilirubin AST ALT Lactate Dehydrogenase Total Creatine Kinase C-Reactive Protein Total Protein Albumin Triglycerides 250 H Arterial Blood Glucose Arterial Blood Ionized Calcium Urine Creatinine Urine Chloride Vancomycin Trough Coronavirus (PCR) Crossmatch See Detail 07/02/20 07/02/20 07/02/20 04:44 06:00 11:33 WBC 14.6 H RBC 2.47 L Hgb 7.4 L Hct 21.8 L RDW Lymph % (Auto) Lymph # (Auto) [place] # (Auto) Seg Neuts % (Manual) Lymphocytes % (Manual) Nucleated RBC % Seg Neutrophils # Seg Neutrophils # Man Lymphocytes # (Manual) Monocytes # (Manual) PT INR APTT D-Dimer Heparin Anti-Xa Level ABG pH 7.457 H POC ABG pCO2 POC ABG pO2 79.4 L ABG Hemoglobin 8.5 L ABG Oxyhemoglobin ABG Sodium 128.4 L ABG Potassium ABG Chloride 97.0 L ABG Glucose 100 H Carboxyhemoglobin Sodium 133 L Potassium 5.2 H Chloride 93.3 L Carbon Dioxide BUN 66 H Creatinine 4.1 H Glucose 102 H POC Glucose Lactic Acid Calcium 7.2 L Phosphorus Magnesium Ferritin Direct Bilirubin AST ALT Lactate Dehydrogenase Total Creatine Kinase C-Reactive Protein Total Protein Albumin Triglycerides Arterial Blood Glucose 100 H Arterial Blood Ionized Calcium 3.9 L Urine Creatinine Urine Chloride Vancomycin Trough Coronavirus (PCR) Crossmatch 07/02/20 07/03/20 07/03/20 11:33 03:54 09:15 WBC 16.6 H RBC 2.44 L Hgb 7.3 L Hct 21.4 L RDW Lymph % (Auto) Lymph # (Auto) [place] # (Auto) Seg Neuts % (Manual) Lymphocytes % (Manual) Nucleated RBC % Seg Neutrophils # Seg Neutrophils # Man Lymphocytes # (Manual) Monocytes # (Manual) PT INR APTT D-Dimer Heparin Anti-Xa Level ABG pH POC ABG pCO2 POC ABG pO2 66.1 L ABG Hemoglobin 8.0 L ABG Oxyhemoglobin ABG Sodium 124.6 L ABG Potassium 5.5 H ABG Chloride 96.0 L ABG Glucose 111 H Carboxyhemoglobin Sodium Potassium Chloride Carbon Dioxide BUN Creatinine Glucose POC Glucose Lactic Acid Calcium Phosphorus Magnesium Ferritin Direct Bilirubin 0.7 H AST 94 H ALT 60 H Lactate Dehydrogenase Total Creatine Kinase C-Reactive Protein Total Protein 4.4 L Albumin 1.9 L Triglycerides Arterial Blood Glucose 111 H Arterial Blood Ionized Calcium 3.8 L Urine Creatinine Urine Chloride Vancomycin Trough Coronavirus (PCR) Crossmatch 07/03/20 07/03/20 07/03/20 09:15 10:10 14:50 WBC RBC Hgb Hct RDW Lymph % (Auto) Lymph # (Auto) [place] # (Auto) Seg Neuts % (Manual) Lymphocytes % (Manual) Nucleated RBC % Seg Neutrophils # Seg Neutrophils # Man Lymphocytes # (Manual) Monocytes # (Manual) PT INR APTT D-Dimer 6608.00 H Heparin Anti-Xa Level ABG pH POC ABG pCO2 POC ABG pO2 ABG Hemoglobin ABG Oxyhemoglobin ABG Sodium ABG Potassium ABG Chloride ABG Glucose Carboxyhemoglobin Sodium 133 L Potassium 6.2 H* Chloride 93.1 L Carbon Dioxide BUN 89 H Creatinine 5.1 H Glucose POC Glucose Lactic Acid Calcium 7.0 L Phosphorus Magnesium Ferritin Direct Bilirubin AST ALT Lactate Dehydrogenase Total Creatine Kinase C-Reactive Protein Total Protein Albumin Triglycerides Arterial Blood Glucose Arterial Blood Ionized Calcium Urine Creatinine Urine Chloride Vancomycin Trough Coronavirus (PCR) Positive A Crossmatch 07/03/20 07/03/20 07/03/20 14:50 14:50 14:50 WBC RBC Hgb Hct RDW Lymph % (Auto) Lymph # (Auto) [place] # (Auto) Seg Neuts % (Manual) Lymphocytes % (Manual) Nucleated RBC % Seg Neutrophils # Seg Neutrophils # Man Lymphocytes # (Manual) Monocytes # (Manual) PT INR APTT D-Dimer Heparin Anti-Xa Level ABG pH POC ABG pCO2 POC ABG pO2 ABG Hemoglobin ABG Oxyhemoglobin ABG Sodium ABG Potassium ABG Chloride ABG Glucose Carboxyhemoglobin Sodium Potassium Chloride Carbon Dioxide BUN Creatinine Glucose POC Glucose Lactic Acid < 0.20 L Calcium Phosphorus Magnesium Ferritin 1171.0 H Direct Bilirubin AST ALT Lactate Dehydrogenase 525 H Total Creatine Kinase C-Reactive Protein 31.50 H Total Protein Albumin Triglycerides Arterial Blood Glucose Arterial Blood Ionized Calcium Urine Creatinine Urine Chloride Vancomycin Trough Coronavirus (PCR) Crossmatch 07/03/20 16:47 WBC RBC Hgb Hct RDW Lymph % (Auto) Lymph # (Auto) [place] # (Auto) Seg Neuts % (Manual) Lymphocytes % (Manual) Nucleated RBC % Seg Neutrophils # Seg Neutrophils # Man Lymphocytes # (Manual) Monocytes # (Manual) PT INR APTT D-Dimer Heparin Anti-Xa Level ABG pH POC ABG pCO2 POC ABG pO2 ABG Hemoglobin ABG Oxyhemoglobin ABG Sodium ABG Potassium ABG Chloride ABG Glucose Carboxyhemoglobin Sodium Potassium Chloride Carbon Dioxide BUN Creatinine Glucose POC Glucose 107 H Lactic Acid Calcium Phosphorus Magnesium Ferritin Direct Bilirubin AST ALT Lactate Dehydrogenase Total Creatine Kinase C-Reactive Protein Total Protein Albumin Triglycerides Arterial Blood Glucose Arterial Blood Ionized Calcium Urine Creatinine Urine Chloride Vancomycin Trough Coronavirus (PCR) Crossmatch Chest x-ray: image reviewed Allied health notes reviewed: RT
[2020-07-04] MEDS: METOCLOPRAMIDE 10 MG/2 ML INJ IV SCH ×3 (05:23→21:08)
[2020-07-04] MEDS: HEPARIN 5,000 UNIT/1 ML VIAL SUB-Q SCH ×3 (05:23→21:20)
[2020-07-04 05:56] LABS: Hematocrit 20.8 % (35.5-45.6); Hemoglobin 6.7 gm/dl (11.8-15.2); Mean Corpuscular HGB Conc 32 % (32-34); Mean Corpuscular Volume 90 fl (84-94); Platelet Count 220 K/mm3 (140-440); Red Blood Count 2.32 M/mm3 (3.65-5.03); Red Cell Distribution Width 15.2 % (13.2-15.2)
[2020-07-04 05:58] LABS: ABG HCO3 26.8 mmol/L (20.0-26.0); ABG Methemoglobin 0.6 % (0.0-1.5); ABG Oxygen Saturation 97.3 % (95.0-99.0); ABG PCO2 52.8 mm Hg; ABG PH 7.324 pH Units (7.350-7.450); ABG PO2 98.9 mm Hg (80.0-90.0)
[2020-07-04 06:12] LABS: Calcium 7.9 mg/dL (8.4-10.2)
[2020-07-04 06:13] LABS: Basophils % (Auto) 0.3 % (0.0-1.8); Eosinophils % (Auto) 0.1 % (0.0-4.3); Lymphocytes % (Auto) 2.6 % (13.4-35.0); Monocytes % (Auto) 3.8 % (0.0-7.3)
[2020-07-04 06:14] LABS: Lymphocytes # (Auto) 0.3 K/mm3 (1.2-5.4); Monocytes # (Auto) 0.5 K/mm3 (0.0-0.8)
[2020-07-04] MEDS: NORepinephrine/NS 4 MG-250 ML 4 MG/250 ML BAG IV SCH (08:12)
[2020-07-04] MEDS ORDERED: SODIUM CHLORIDE 0.9% 500 ML 500 ML IV NR (09:18)
[2020-07-04] MEDS: ASCORBIC ACID 250 MG TAB PO SCH ×2 (10:38→21:08)
[2020-07-04] MEDS: POLYETHYLENE GLYCOL 3350 17 GM POWDER PO SCH (10:38)
[2020-07-04] MEDS: QUEtiapine 200 MG TAB PO SCH ×2 (10:39→21:08)
[2020-07-04] MEDS: CHOLECALCIFEROL (VIT D3) 1000 UNIT (25 mcg) TAB PO SCH (10:39)
[2020-07-04] MEDS: DOCUSATE SODIUM 100 MG/10 ML ORAL LIQD FEEDTUBE SCH ×2 (10:39→21:08)
[2020-07-04] MEDS: dexAMETHasone 4 MG/ML VIAL IV SCH (10:39)
[2020-07-04] MEDS: ZINC SULFATE 220 MG CAP PO SCH ×2 (10:39→21:08)
[2020-07-04] MEDS: SODIUM POLYSTYRENE 15 GM/60 ML ORAL LIQD PO PRN (10:39)
[2020-07-04] MEDS: FAMOTIDINE 20 MG/2 ML INJ IV SCH (10:39)
[2020-07-04] MEDS: SODIUM BICARBONATE 650 MG TAB PO SCH ×3 (10:42→20:27)
--- NOTE | 2020-07-04 11:08 | Progress Note ---
Assessment and Plan tele reviewed - currently in AFib HR 100s. Cont IV amio and tele reviewed - pt converted to NSR this morning. Cont IV amio and PO cardizem with hold parameters as BPs permit - pt is intermittently requiring vasopressors. Severe anemia noted. Heparin gtt held. PRBC tx PRN per primary. Further eval/management per primary. Pt is critically ill. Overall guarded prognosis. The patient has been seen in conjunction with Dr. Adarsh Santos who agrees with the assessment and plan of care. - Patient Problems (1) Acute respiratory failure with hypoxia Current Visit: Yes Status: Acute (2) Pneumonia due to COVID-19 virus Current Visit: Yes Status: Acute (3) Sepsis Current Visit: Yes Status: Acute Qualifiers: Severe sepsis acute organ dysfunction type: acute respiratory failure Severe sepsis shock status: with septic shock (4) Atrial fibrillation with rapid ventricular response Current Visit: Yes Status: Acute (5) Acute renal failure Current Visit: Yes Status: Acute (6) Elevated LFTs Current Visit: Yes Status: Acute (7) Anemia Current Visit: Yes Status: Acute Subjective Date of service: 07/04/20 Principal diagnosis: ARF/Septic Shock/COVID-19 PNA, AF with RVR Interval history: pt remains intubated, sedated. intermittently requiring vasopressor support. on amio gtt. tele reviewed - currently in AFib HR 100s. Objective Last Vital Signs Temp 99.3 F 07/04/20 08:00 Pulse 112 H 07/04/20 10:15 Resp 15 07/04/20 10:15 BP 132/58 07/04/20 10:15 Pulse Ox 99 07/04/20 10:15 - Physical Examination General: Other (intubated, lethargic) Neck: Positive: neck supple Cardiac: Positive: irregularly irregular, S1/S2 Lungs: Positive: Decreased Breath Sounds, Oxygen, Ventilated Respirations Neuro: Positive: Other (intubated, lethargic) Abdomen: Positive: Soft Skin: Negative: Rash, Wound Extremities: Present: upper extr. pulses, lower extr. pulses, +1 Edema - Labs and Meds Cardiac Enzymes 07/03/20 Range/Units 14:50 Lactate Dehydrogenase 525 H (91-180) units/L CBC 07/04/20 Range/Units 05:20 WBC 11.8 H (4.5-11.0) K/mm3 RBC 2.32 L (3.65-5.03) M/mm3 Hgb 6.7 L (11.8-15.2) gm/dl Hct 20.8 L (35.5-45.6) % Plt Count 220 (140-440) K/mm3 Lymph # (Auto) 0.3 L (1.2-5.4) K/mm3 [place] # (Auto) 0.5 (0.0-0.8) K/mm3 Eos # (Auto) 0.0 (0.0-0.4) K/mm3 Baso # (Auto) 0.0 (0.0-0.1) K/mm3 Comprehensive Metabolic Panel 07/04/20 Range/Units 05:20 Sodium 138 (137-145) mmol/L Potassium 6.0 H (3.6-5.0) mmol/L Chloride 97.8 L (98-107) mmol/L Carbon Dioxide 26 (22-30) mmol/L BUN 75 H (9-20) mg/dL Creatinine 4.5 H (0.8-1.3) mg/dL Glucose 121 H (75-100) mg/dL Calcium 7.9 L (8.4-10.2) mg/dL - Imaging and Cardiology EKG: report reviewed, image reviewed Echo: report reviewed (TDS, EF 55-60%. ) - Telemetry EKG Rhythm: Atrial Fibrillation - EKG Sinus rhythms and dysrhythmias: sinus tachycardia - Allied health notes Allied health notes reviewed: nursing
[2020-07-04] MEDS: EPOETIN ALFA-EPBX 10,000 UNIT/1 ML VIAL IV PRN (11:45)
--- NOTE | 2020-07-04 16:27 | Progress Note ---
Assessment and Plan 59-year-old white male who was admitted for pneumonia secondary to Covid with associated respiratory failure and sepsis. Hyperkalemia -Treated aggressively -Calcium gluconate IV sodium bicarbonate and Kayexalate given Acute metabolic encephalopathy -Due to severe sepsis and severe hypoxia -CT head ordered (patient is too unstable to do the scan), currently intubated, continue supportive care with frequent neuro check Acute hypoxic respiratory failure -Due to severe COVID-19 pneumonia -Intubated following admission overnight as patient was unable to maintain oxygenation with 100% FiO2 with BiPAP -Critical care following, frequent nebulizer breathing treatment, empiric steroid Severe septic shock -Patient currently on 2 pressor support -Wean off as tolerated COVID-19 pneumonia -Follow inflammatory markers, ID consulted --Patient initially tested positive for COVID-19 virus about 2 weeks before this admission -CXR shows patchy parenchymal disease which represent pulmonary edema or atypical pneumonia -Placed on dexamethasone for total 10 days and completed remdesivir total 5 days -Continue empiric antibiotics for now per ID recommendation -Droplet/contact isolation -Continue SPO2 monitoring -Supplemental oxygen as needed -Pulmonary hygiene, Prone intermittently to improve oxygenation -Vitamin C, vitamin D, zinc -Anticoagulation per protocol -Lasix IV as needed to prevent pulmonary edema GIRISH, likely ATN -Follow BMP daily, avoid nephrotoxins -Consulted nephrology, follow recommendations -Renal function continues to decline, started on hemodialysis since 06/22/20 hypokalemia, repleted Supraventricular tachycardia/paroxysmal atrial fibrillation -likely due to severe sepsis -Patient currently on pressors and IV amiodarone drip for rate control if needed -Consulted cardiology, echo ordered currently pending -Placed on heparin drip Elevated LFT, due to shock liver from severe sepsis and COVID-19 infection -Continue to trend Morbid obesity, -Associated with poor outcome with Covid infection -need counseling for diet and exercise and healthy lifestyles once clinically stable as outpatient DVT prophylaxis, per Covid protocol Full CODE STATUS Poor prognosis The high probability of a clinically significant, sudden or life threatening deterioration of the [[facility], [employer], 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 The aggregate critical care time was [42] minutes. This time is in addition to time spent performing reported procedures but includes the following: [x] Data Review and interpretation [x] Patient assessment and monitoring of vital signs [x] Documentation [x] Medication orders and management daily course: 06/18: Patient got intubated overnight. Patient was placed on BiPAP to maintain oxygenation with 100% FiO2 but apparently he found to take off his argueta which made his oxygen saturation go down at 60s/50s and patient was found altered mental status. Code met was called immediately. Patient was transferred to ICU and intubated, patient currently on 2 pressors, intubated with 100% FiO2, renal function noted to be decline, nephrology consulted. Discussed with [place] physician Dr. Thompson and requested call back on Saturday. Poor prognosis, continue to monitor with aggressive supportive care. Also called family/ to update clinical status. 06/19: Repeat COVID test was positive. cont cefepime, remdesivir per ID recommendation. follow inflammatory markers, cbc, bmp. placed on heparin drip for atrial fib 06/20: Remains on mechanical ventilation, on 2 pressors, on heparin drip. discussed with and daughter by phone. Renal function declining. cont supportive care for now. 06/21: Renal function cont to decline, urine outpt sig decreased. started on lasix 80mg BID, plan to follow urine output, if no improvement patient need to start on HD. called and daughter today. updated all clinical details 06/22: Renal function continues to decline with uremia and hyperkalemia. Will need to proceed with hemodialysis. Nephrology discussed with the family and they agrees for the hemodialysis. Patient remains on pressor support and mechanical ventilation. Vas-Cath placed today by vascular started on hemodialysis today. 06/23: 2nd round of HD today, remains on 2 pressors. per RN not tolerating TF, has no record of BM since 06/18. start on stool softner. follow cbc/bmp. updated family( and daughter) by phone -all question answered to best of my knowledge and to their satisfaction. Patient remains critically ill with a very poor prognosis. 06/24: Continue supportive care, Very poor prognosis, [place] T[employer] to discuss with family in am due to the futility of the condition. 06/25/2020 continue supportive care very poor prognosis 06/26/2020 continue supportive care very poor prognosis family updated 06/27/2020 continue supportive care and weaning if possible 06/28/2020 continue supportive care, talk with at length 06/29: Resumed care. K level persistently high. give one dose of bicarbonate, plan for HD today, recheck k after HD. updated family by phone 06/30: updated family by phone. Patient remains on amiodarone drip and vasopressin. Getting HD at the bedside. Tolerating tube feeding at low rate. 07/01: Hb dropped to 6.4 today, transfuse one unit PRBC. patient is off pressor today, remains on amioderone. cont to monitor 07/02: Called patient and updated clinical details. Patient remains critically ill, still intubated. Patient's oxygen requirement and PEEP pressure has went down. Continue weaning protocol per critical care recommendation. Patient remains off pressor. Continue to wean off from amiodarone and plan to rate control with p.o. medications. Tolerating tube feeding. H&H stable today. Order for stool for occult blood. Monitor H&H and BMP. Continue to follow clinically 07/03: discussed with [place] physician today. Patient back on 100percent Fio2 since last night. planned for emergent Hd today. spiked fever, start IV Cefepime + Vancomycin renally dosed. Restarted Levophed today, remains on amiodarone drip. Patient family was updated by critical care attending today. 07/04: Patient has hemodialysis yesterday and also plan for today for volume overload and pulmonary edema. Patient currently on 80% FiO2. Remains on Levophed and amiodarone. Hemoglobin dropped to 6.7 without any evidence of active bleeding. LFTs remain stable. Repeat Covid test on 06/30 and 07/03 remains positive. Will transfuse another unit of packed RBC today. Called family for update -explained family that patient is critically ill with very poor prognosis. Subjective Date of service: 07/04/20 Principal diagnosis: ARF/Septic Shock/COVID-19 PNA, AF with RVR Objective - Constitutional Vitals: Vital Signs - 12hr 07/04/20 07/04/20 07/04/20 04:30 04:44 04:45 Temperature Pulse Rate 96 H 101 H 112 H Respiratory 15 17 Rate Blood Pressure 129/55 129/55 121/57 O2 Sat by Pulse 98 98 98 Oximetry O2 Sat by Pulse Oximetry [ Anterior Bilateral Throughout] 07/04/20 07/04/20 07/04/20 05:00 05:15 05:22 Temperature Pulse Rate 99 H 92 H 99 H Respiratory 15 15 Rate Blood Pressure 122/53 129/63 129/63 O2 Sat by Pulse 98 99 Oximetry O2 Sat by Pulse Oximetry [ Anterior Bilateral Throughout] 07/04/20 07/04/20 07/04/20 05:30 05:45 06:00 Temperature Pulse Rate 103 H 92 H 94 H Respiratory 17 15 17 Rate Blood Pressure 133/59 138/57 121/62 O2 Sat by Pulse 99 98 98 Oximetry O2 Sat by Pulse Oximetry [ Anterior Bilateral Throughout] 07/04/20 07/04/20 07/04/20 06:15 06:30 06:45 Temperature Pulse Rate 92 H 91 H 97 H Respiratory 14 14 14 Rate Blood Pressure 121/62 123/56 118/55 O2 Sat by Pulse 98 98 98 Oximetry O2 Sat by Pulse Oximetry [ Anterior Bilateral Throughout] 07/04/20 07/04/20 07/04/20 07:01 07:15 07:30 Temperature Pulse Rate 96 H 100 H 103 H Respiratory 18 21 16 Rate Blood Pressure 124/53 120/56 124/57 O2 Sat by Pulse 98 99 99 Oximetry O2 Sat by Pulse Oximetry [ Anterior Bilateral Throughout] 07/04/20 07/04/20 07/04/20 07:45 08:00 08:15 Temperature 99.3 F Pulse Rate 101 H 88 91 H Respiratory 14 16 21 Rate Blood Pressure 120/54 105/54 111/57 O2 Sat by Pulse 98 98 97 Oximetry O2 Sat by Pulse Oximetry [ Anterior Bilateral Throughout] 07/04/20 07/04/20 07/04/20 08:30 08:45 09:00 Temperature Pulse Rate 98 H 97 H 98 H Respiratory 21 16 14 Rate Blood Pressure 146/77 136/67 113/57 O2 Sat by Pulse 96 97 97 Oximetry O2 Sat by Pulse Oximetry [ Anterior Bilateral Throughout] 07/04/20 07/04/20 07/04/20 09:15 09:25 09:30 Temperature 99.3 F Pulse Rate 107 H 94 H 95 H Respiratory 18 15 14 Rate Blood Pressure 114/54 116/49 125/54 O2 Sat by Pulse 98 97 Oximetry O2 Sat by Pulse Oximetry [ Anterior Bilateral Throughout] 07/04/20 07/04/20 07/04/20 09:45 10:00 10:15 Temperature Pulse Rate 88 94 H 110 H Respiratory 14 18 15 Rate Blood Pressure 109/58 123/59 132/58 O2 Sat by Pulse 99 99 99 Oximetry O2 Sat by Pulse Oximetry [ Anterior Bilateral Throughout] 07/04/20 07/04/20 07/04/20 10:30 10:45 11:00 Temperature Pulse Rate 110 H 110 H 97 H Respiratory 14 14 15 Rate Blood Pressure 121/55 122/55 118/57 O2 Sat by Pulse 99 99 95 Oximetry O2 Sat by Pulse Oximetry [ Anterior Bilateral Throughout] 07/04/20 07/04/20 07/04/20 11:15 11:30 11:38 Temperature Pulse Rate 97 H 99 H 90 Respiratory 17 20 Rate Blood Pressure 122/60 129/57 118/52 O2 Sat by Pulse 89 87 95 Oximetry O2 Sat by Pulse Oximetry [ Anterior Bilateral Throughout] 07/04/20 07/04/20 07/04/20 11:45 11:53 12:00 Temperature Pulse Rate 93 H 91 H 92 H Respiratory 16 17 Rate Blood Pressure 123/67 121/60 O2 Sat by Pulse 86 95 88 Oximetry O2 Sat by Pulse Oximetry [ Anterior Bilateral Throughout] 07/04/20 07/04/20 07/04/20 12:15 12:30 12:45 Temperature Pulse Rate 95 H 99 H 95 H Respiratory 15 18 18 Rate Blood Pressure 129/64 134/64 133/63 O2 Sat by Pulse 99 100 100 Oximetry O2 Sat by Pulse Oximetry [ Anterior Bilateral Throughout] 07/04/20 07/04/20 07/04/20 13:00 13:15 13:20 Temperature 97.9 F Pulse Rate 99 H 95 H 97 H Respiratory 20 20 Rate Blood Pressure 134/69 137/70 137/70 O2 Sat by Pulse 100 100 Oximetry O2 Sat by Pulse 98 Oximetry [ Anterior Bilateral Throughout] 07/04/20 07/04/20 07/04/20 13:30 13:45 14:00 Temperature Pulse Rate 97 H 96 H 96 H Respiratory 17 18 17 Rate Blood Pressure 134/73 143/66 133/69 O2 Sat by Pulse 99 99 99 Oximetry O2 Sat by Pulse Oximetry [ Anterior Bilateral Throughout] 07/04/20 07/04/20 07/04/20 14:15 14:30 14:45 Temperature Pulse Rate 87 88 93 H Respiratory 20 20 18 Rate Blood Pressure 138/63 134/67 133/59 O2 Sat by Pulse 99 99 99 Oximetry O2 Sat by Pulse Oximetry [ Anterior Bilateral Throughout] 07/04/20 07/04/20 07/04/20 15:00 15:15 15:29 Temperature Pulse Rate 97 H 93 H 102 H Respiratory 20 20 Rate Blood Pressure 139/62 123/64 139/62 O2 Sat by Pulse 99 99 99 Oximetry O2 Sat by Pulse Oximetry [ Anterior Bilateral Throughout] 07/04/20 07/04/20 07/04/20 15:30 15:43 15:45 Temperature Pulse Rate 104 H 104 H Respiratory 17 16 Rate Blood Pressure 126/58 126/58 O2 Sat by Pulse 99 96 98 Oximetry O2 Sat by Pulse Oximetry [ Anterior Bilateral Throughout] 07/04/20 07/04/20 15:46 16:00 Temperature Pulse Rate 103 H 95 H Respiratory 17 Rate Blood Pressure 115/52 O2 Sat by Pulse 98 Oximetry O2 Sat by Pulse Oximetry [ Anterior Bilateral Throughout] - Labs CBC & Chem 7: 07/04/20 05:20 07/04/20 05:20 Labs: Abnormal lab results 07/01/20 07/03/20 07/04/20 Range/Units 11:04 16:47 05:20 WBC 11.8 H (4.5-11.0) K/mm3 RBC 2.32 L (3.65-5.03) M/mm3 Hgb 6.7 L (11.8-15.2) gm/dl Hct 20.8 L (35.5-45.6) % Lymph % (Auto) 2.6 L (13.4-35.0) % Lymph # (Auto) 0.3 L (1.2-5.4) K/mm3 Seg Neutrophils # 11.0 H (1.8-7.7) K/mm3 ABG pH (7.350-7.450) pH Units ABG pO2 (80.0-90.0) mm Hg ABG HCO3 (20.0-26.0) mmol/L ABG Hemoglobin (14.0-18.0) gm/dl Potassium (3.6-5.0) mmol/L Chloride (98-107) mmol/L BUN (9-20) mg/dL Creatinine (0.8-1.3) mg/dL Glucose (75-100) mg/dL POC Glucose 107 H (70-105) mg/dL Calcium (8.4-10.2) mg/dL Crossmatch See Detail 07/04/20 07/04/20 07/04/20 Range/Units 05:20 05:20 05:50 WBC (4.5-11.0) K/mm3 RBC (3.65-5.03) M/mm3 Hgb (11.8-15.2) gm/dl Hct (35.5-45.6) % Lymph % (Auto) (13.4-35.0) % Lymph # (Auto) (1.2-5.4) K/mm3 Seg Neutrophils # (1.8-7.7) K/mm3 ABG pH 7.324 L (7.350-7.450) pH Units ABG pO2 98.9 H (80.0-90.0) mm Hg ABG HCO3 26.8 H (20.0-26.0) mmol/L ABG Hemoglobin < 5.1 L (14.0-18.0) gm/dl Potassium 6.0 H (3.6-5.0) mmol/L Chloride 97.8 L (98-107) mmol/L BUN 75 H (9-20) mg/dL Creatinine 4.5 H (0.8-1.3) mg/dL Glucose 121 H (75-100) mg/dL POC Glucose 114 H (70-105) mg/dL Calcium 7.9 L (8.4-10.2) mg/dL Crossmatch 07/04/20 07/04/20 Range/Units 09:25 12:33 WBC (4.5-11.0) K/mm3 RBC (3.65-5.03) M/mm3 Hgb (11.8-15.2) gm/dl Hct (35.5-45.6) % Lymph % (Auto) (13.4-35.0) % Lymph # (Auto) (1.2-5.4) K/mm3 Seg Neutrophils # (1.8-7.7) K/mm3 ABG pH (7.350-7.450) pH Units ABG pO2 (80.0-90.0) mm Hg ABG HCO3 (20.0-26.0) mmol/L ABG Hemoglobin (14.0-18.0) gm/dl Potassium (3.6-5.0) mmol/L Chloride (98-107) mmol/L BUN (9-20) mg/dL Creatinine (0.8-1.3) mg/dL Glucose (75-100) mg/dL POC Glucose 119 H (70-105) mg/dL Calcium (8.4-10.2) mg/dL Crossmatch See Detail HEART Score - HEART Score Troponin: Troponin T < 0.010 ng/mL (0.00-0.029) 06/17/20 12:33
--- NOTE | 2020-07-04 17:07 | Progress Note ---
Assessment and Plan - Patient Problems (1) GIRISH (acute kidney injury) Current Visit: Yes Status: Acute Plan to address problem: Acute kidney failure 2/2 prerenal azotemia versus acute tubular necrosis, patient without significant renal recovery, remains dialysis dependent. S/p additional HD yesterday for volume control and correction of hyperkalemia. Resume HD on MWF schedule (2) Severe sepsis with septic shock Current Visit: Yes Status: Acute Plan to address problem: Continue antibiotics per infectious disease network security consultant appropriately adjusted to the degree of renal function. Patient is off of vasopressors. (3) Hyperkalemia Current Visit: Yes Status: Acute Plan to address problem: HD today, cont 2g K renal diet (4) Metabolic acidosis Current Visit: Yes Status: Acute Plan to address problem: Acidosis improving with dialysis. (5) Acute respiratory failure with hypoxia Current Visit: Yes Status: Acute Plan to address problem: Continue respiratory management by pulmonary (6) Pneumonia due to COVID-19 virus Current Visit: Yes Status: Acute Plan to address problem: IV Dexamethasone Supplemental oxygen/Respiratory support as needed Proning as tolerated Remdesevir contra-indicated due to Kidney failure Prophylactic anticoagulation Trend inflammatory markers to assess disease progression and prognosis Subjective Date of service: 07/04/20 Principal diagnosis: ARF/Septic Shock/COVID-19 PNA, AF with RVR Interval history: Patient was not examined today due to the COVID-19 status to 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 I reviewed multidisciplinary notes and discussed with staff and physicians as needed. Patient is sedated on propofol and fentanyl. He is on anticoagulation with intravenous heparin. HD well tolerated yesterday with 1L UF. pt remains off vasopressors, on ventilator support with FiO2 80%, additional HD performed yesterday for volume control and correction of hyperkalemia. To resume HD on MWF schedule Objective - Exam Narrative Exam: exam deferred d/t PPE preservation - Vital Signs Vital signs: Vital Signs - 12hr 07/04/20 07/04/20 07/04/20 05:15 05:22 05:30 Temperature Pulse Rate 92 H 99 H 103 H Respiratory 15 17 Rate Blood Pressure 129/63 129/63 133/59 O2 Sat by Pulse 99 99 Oximetry O2 Sat by Pulse Oximetry [ Anterior Bilateral Throughout] 07/04/20 07/04/20 07/04/20 05:45 06:00 06:15 Temperature Pulse Rate 92 H 94 H 92 H Respiratory 15 17 14 Rate Blood Pressure 138/57 121/62 121/62 O2 Sat by Pulse 98 98 98 Oximetry O2 Sat by Pulse Oximetry [ Anterior Bilateral Throughout] 07/04/20 07/04/20 07/04/20 06:30 06:45 07:01 Temperature Pulse Rate 91 H 97 H 96 H Respiratory 14 14 18 Rate Blood Pressure 123/56 118/55 124/53 O2 Sat by Pulse 98 98 98 Oximetry O2 Sat by Pulse Oximetry [ Anterior Bilateral Throughout] 07/04/20 07/04/20 07/04/20 07:15 07:30 07:45 Temperature Pulse Rate 100 H 103 H 101 H Respiratory 21 16 14 Rate Blood Pressure 120/56 124/57 120/54 O2 Sat by Pulse 99 99 98 Oximetry O2 Sat by Pulse Oximetry [ Anterior Bilateral Throughout] 07/04/20 07/04/20 07/04/20 08:00 08:15 08:30 Temperature 99.3 F Pulse Rate 88 91 H 98 H Respiratory 16 21 21 Rate Blood Pressure 105/54 111/57 146/77 O2 Sat by Pulse 98 97 96 Oximetry O2 Sat by Pulse Oximetry [ Anterior Bilateral Throughout] 07/04/20 07/04/20 07/04/20 08:45 09:00 09:15 Temperature Pulse Rate 97 H 98 H 107 H Respiratory 16 14 18 Rate Blood Pressure 136/67 113/57 114/54 O2 Sat by Pulse 97 97 98 Oximetry O2 Sat by Pulse Oximetry [ Anterior Bilateral Throughout] 07/04/20 07/04/20 07/04/20 09:25 09:30 09:45 Temperature 99.3 F Pulse Rate 94 H 95 H 88 Respiratory 15 14 14 Rate Blood Pressure 116/49 125/54 109/58 O2 Sat by Pulse 97 99 Oximetry O2 Sat by Pulse Oximetry [ Anterior Bilateral Throughout] 07/04/20 07/04/20 07/04/20 10:00 10:15 10:30 Temperature Pulse Rate 94 H 110 H 110 H Respiratory 18 15 14 Rate Blood Pressure 123/59 132/58 121/55 O2 Sat by Pulse 99 99 99 Oximetry O2 Sat by Pulse Oximetry [ Anterior Bilateral Throughout] 07/04/20 07/04/20 07/04/20 10:45 11:00 11:15 Temperature Pulse Rate 110 H 97 H 97 H Respiratory 14 15 17 Rate Blood Pressure 122/55 118/57 122/60 O2 Sat by Pulse 99 95 89 Oximetry O2 Sat by Pulse Oximetry [ Anterior Bilateral Throughout] 07/04/20 07/04/20 07/04/20 11:30 11:38 11:45 Temperature Pulse Rate 99 H 90 93 H Respiratory 20 16 Rate Blood Pressure 129/57 118/52 123/67 O2 Sat by Pulse 87 95 86 Oximetry O2 Sat by Pulse Oximetry [ Anterior Bilateral Throughout] 07/04/20 07/04/20 07/04/20 11:53 12:00 12:15 Temperature Pulse Rate 91 H 92 H 95 H Respiratory 17 15 Rate Blood Pressure 121/60 129/64 O2 Sat by Pulse 95 88 99 Oximetry O2 Sat by Pulse Oximetry [ Anterior Bilateral Throughout] 07/04/20 07/04/20 07/04/20 12:30 12:45 13:00 Temperature Pulse Rate 99 H 95 H 99 H Respiratory 18 18 20 Rate Blood Pressure 134/64 133/63 134/69 O2 Sat by Pulse 100 100 100 Oximetry O2 Sat by Pulse Oximetry [ Anterior Bilateral Throughout] 07/04/20 07/04/20 07/04/20 13:15 13:20 13:30 Temperature 97.9 F Pulse Rate 95 H 97 H 97 H Respiratory 20 17 Rate Blood Pressure 137/70 137/70 134/73 O2 Sat by Pulse 100 99 Oximetry O2 Sat by Pulse 98 Oximetry [ Anterior Bilateral Throughout] 07/04/20 07/04/20 07/04/20 13:45 14:00 14:15 Temperature Pulse Rate 96 H 96 H 87 Respiratory 18 17 20 Rate Blood Pressure 143/66 133/69 138/63 O2 Sat by Pulse 99 99 99 Oximetry O2 Sat by Pulse Oximetry [ Anterior Bilateral Throughout] 07/04/20 07/04/20 07/04/20 14:30 14:45 15:00 Temperature Pulse Rate 88 93 H 97 H Respiratory 20 18 20 Rate Blood Pressure 134/67 133/59 139/62 O2 Sat by Pulse 99 99 99 Oximetry O2 Sat by Pulse Oximetry [ Anterior Bilateral Throughout] 07/04/20 07/04/20 07/04/20 15:15 15:29 15:30 Temperature Pulse Rate 93 H 102 H 104 H Respiratory 20 17 Rate Blood Pressure 123/64 139/62 126/58 O2 Sat by Pulse 99 99 99 Oximetry O2 Sat by Pulse Oximetry [ Anterior Bilateral Throughout] 07/04/20 07/04/20 07/04/20 15:43 15:45 15:46 Temperature Pulse Rate 104 H 103 H Respiratory 16 Rate Blood Pressure 126/58 O2 Sat by Pulse 96 98 Oximetry O2 Sat by Pulse Oximetry [ Anterior Bilateral Throughout] 07/04/20 16:00 Temperature Pulse Rate 95 H Respiratory 17 Rate Blood Pressure 115/52 O2 Sat by Pulse 98 Oximetry O2 Sat by Pulse Oximetry [ Anterior Bilateral Throughout] - Lab 07/04/20 05:20 07/04/20 05:20 Most recent lab results ABG pH 7.324 pH Units (7.350-7.450) L 07/04/20 05:20 ABG pCO2 52.8 mm Hg 07/04/20 05:20 ABG pO2 98.9 mm Hg (80.0-90.0) H 07/04/20 05:20 ABG HCO3 26.8 mmol/L (20.0-26.0) H 07/04/20 05:20 ABG O2 Saturation 97.3 % (95.0-99.0) 07/04/20 05:20 Calcium 7.9 mg/dL (8.4-10.2) L 07/04/20 05:20 Phosphorus 9.40 mg/dL (2.5-4.5) H 06/30/20 03:50 Magnesium 2.70 mg/dL (1.7-2.3) H 06/18/20 20:33 Urine Creatinine 192.4 mg/dL (0.1-20.0) H 06/18/20 15:00 Urine Sodium 28 mmol/L 06/18/20 15:00 Medications & Allergies - Medications Allergies/Adverse Reactions: Allergies No Known Allergies Allergy (Unverified 06/17/20 14:24) Home Medications: Home Medications Medication Instructions Recorded Confirmed Last Taken Type Losartan/Hydrochlorothiazide 1 each PO QDAY 06/19/20 06/19/20 Unknown History [Losartan-Hctz 100-25 mg Tab] amLODIPine [Norvasc] 5 mg PO DAILY 06/19/20 06/19/20 Unknown History Active Medications: Generic Name Dose Route Start Last Admin Trade Name Freq PRN Reason Stop Dose Admin Acetaminophen 650 mg 06/17/20 14:17 07/03/20 09:16 Acetaminophen 325 Mg Tab PO 650 mg Q4H PRN Administration Pain MILD(1-3)/Fever >100.5/ROBERTS Lipase/Protease/Amylase 1 each 06/19/20 12:15 Lipase 10,500/Protease 25,000/Amylase 43,750 (Units) Dr Kulkarni FEEDTUBE PRN PRN For Clogged Feeding Tube Ascorbic Acid 250 mg 06/17/20 22:00 07/04/20 10:38 Ascorbic Acid 250 Mg Tab PO 250 mg BID CONNOR Administration Cholecalciferol 1,000 unit 06/18/20 10:00 07/04/20 10:39 Cholecalciferol (Vit D3) 1000 Unit (25 Mcg) Tab PO 1,000 unit DAILY CONNOR Administration Dexamethasone 6 mg 07/03/20 14:00 07/04/20 10:39 Dexamethasone 4 Mg/Ml Vial IV 07/13/20 13:59 6 mg DAILY CONNOR Administration Diltiazem HCl 30 mg 07/02/20 12:00 07/04/20 13:20 Diltiazem 30 Mg Tab PO 30 mg Q6HR CONNOR Administration Docusate Sodium 100 mg 06/23/20 15:00 07/04/20 10:39 Docusate Sodium 100 Mg/10 Ml Oral Liqd FEEDTUBE 100 mg BID CONNOR Administration Famotidine 20 mg 06/20/20 11:00 07/04/20 10:39 Famotidine 20 Mg/2 Ml Inj IV 20 mg DAILY CONNOR Administration Fentanyl 50 mcg 06/18/20 01:02 06/28/20 04:32 Fentanyl 100 Mcg/2 Ml Inj IV 50 mcg Q10MIN PRN Administration ANALGESIA Heparin Sodium (Porcine) 5,000 unit 06/22/20 12:53 06/30/20 13:36 Heparin 10,000 Unit/1 Ml Vial IV 5,000 unit PAM PRN Administration hemodialysis Heparin Sodium (Porcine) 5,000 unit 07/03/20 22:00 07/04/20 13:19 Heparin 5,000 Unit/1 Ml Vial SUB-Q 5,000 unit Q8HR CONNOR Administration Hydrophilic Ointment 1 applic 06/17/20 22:52 07/02/20 20:45 Lip Therapy Vaseline TP 1 applic Q2HR PRN Administration Dry Lips Norepinephrine 4 mg in 250 mls @ 7.5 mls/hr 06/18/20 00:00 07/04/20 14:45 Levophed Drip 4 Mg/Ns 250 Ml IV 0 mcg/min TITR CONNOR 0 mls/hr Titration Protocol 2 MCG/MIN Propofol 1,000 mg in 100 mls @ 3.402 mls/hr 06/18/20 01:00 07/04/20 16:04 Diprivan 10 Mg/Ml IV 15 mcg/kg/min TITR CONNOR 10.206 mls/hr Administration Protocol 5 MCG/KG/MIN Fentanyl Citrate 2,000 mcg in 100 mls @ 5.67 mls/hr 06/18/20 02:00 07/04/20 14:46 Fentanyl Drip Premix IV 3 mcg/kg/hr TITR CONNOR 17.01 mls/hr Administration Protocol 1 MCG/KG/HR Vasopressin 20 unit/ Sodium 101 mls @ 9.09 mls/hr 06/18/20 10:00 06/24/20 18:05 Chloride IV 0 units/min TITR CONNOR 0 mls/hr Titration Protocol 0.03 UNITS/MIN Sodium Chloride 500 mls @ 1 mls/hr 06/18/20 09:38 06/19/20 21:37 Nacl 0.9% 500 Ml IV 0 mls/hr DIRECT PRN Infusion ARTERIAL LINE FLUSH Amiodarone HCl 900 mg/ 500 mls @ 33.333 mls/hr 06/28/20 15:00 07/03/20 22:03 Dextrose IV 0.5 mg/min DIRECT CONNOR 16.667 mls/hr Administration Protocol 1 MG/MIN Sodium Chloride 100 mls @ 999 mls/hr 07/03/20 11:11 Nacl 0.9% IV PAM PRN Hypotension Sodium Chloride 500 mls @ 0 mls/hr 07/04/20 09:18 Nacl 0.9% 500 Ml IV 07/04/20 23:59 ONCE NR As Directed Insulin Human Regular 0 units 06/18/20 12:00 07/04/20 13:24 Insulin Regular, Human 100 Units/1 Ml SUB-Q Not Given Q6HR [facility] Protocol Metoclopramide HCl 10 mg 06/28/20 13:00 07/04/20 13:19 Metoclopramide 10 Mg/2 Ml Inj IV 10 mg Q8H [facility] Administration Multi-Ingred Cream/Lotion/Oil/Oint 1 applic 06/17/20 22:52 Mineral Oil/Petrolatum, White Ophth Oint 3.5 Gm OU Q4HR PRN Dry Eye(s) Ondansetron HCl 4 mg 06/17/20 14:17 Ondansetron 4 Mg/2 Ml Inj IV Q8H PRN Nausea And Vomiting Polyethylene Glycol 17 gm 06/23/20 15:00 07/04/20 10:38 Polyethylene Glycol 3350 17 Gm Powder PO 17 gm QDAY CONNOR Administration Quetiapine Fumarate 200 mg 06/28/20 13:00 07/04/20 10:39 Quetiapine 200 Mg Tab PO 200 mg BID CONNOR Administration Simple Syrup 15 ml 06/19/20 12:15 Simple Syrup 15 Ml FEEDTUBE PRN PRN Hypoglycemia Simple Syrup 30 ml 06/19/20 12:15 Simple Syrup 15 Ml FEEDTUBE PRN PRN Hypoglycemia Sodium Bicarbonate 325 mg 06/19/20 12:15 Sodium Bicarbonate 325 Mg Tab FEEDTUBE PRN PRN For Clogged Feeding Tube Sodium Bicarbonate 650 mg 07/04/20 10:00 07/04/20 13:19 Sodium Bicarbonate 650 Mg Tab PO 650 mg TID CONNOR Administration Sodium Chloride 10 ml 06/17/20 22:00 07/04/20 10:39 Sodium Chloride 0.9% 10 Ml Flush Syringe IV 10 ml BID CONNOR Administration Sodium Chloride 10 ml 06/17/20 14:17 Sodium Chloride 0.9% 10 Ml Flush Syringe IV PRN PRN LINE FLUSH Sodium Polystyrene Sulfonate 15 gm 07/03/20 11:19 07/04/20 10:39 Sodium Polystyrene 15 Gm/60 Ml Oral Liqd PO 15 gm Q6HR PRN Administration Hyperkalemia Zinc Sulfate 220 mg 06/17/20 22:00 07/04/20 10:39 Zinc Sulfate 220 Mg Cap PO 220 mg BID CONNOR Administration
--- NOTE | 2020-07-04 17:18 | Progress Note ---
Assessment and Plan Cultures: SARS CoV2 PCR: Positive as outpatient Blood culture: no growth Sputum culture: no growth A/P: 59-year-old male with obesity, obesity hypoventilation syndrome: #Severe sepsis with septic shock: likely secondary to critical COVID-19 pneumonia. Blood cultures so far negative. ?Bacterial pneumonia component, but sputum culture with no growth. On empiric abx, steroids. Completed Remdesivir. #Critical COVID-19 pneumonia: Procalcitonin also high on admission (Now with worsening GIRISH, no longer reliable), completed empiric antibiotic course. #Acute hypoxic respiratory failure: on the vent #Transaminitis: Likely secondary to COVID-19. #GIRISH: On HD MWF, started 06/22/2020 Recs: -completed steroids, remdesivir, cefepime -if febrile again, would reculture ET aspirate, blood and start IV Cefepime + Vancomycin renally dosed -prophylactic anticoagulation based on d-dimer per hospital protocol -poor prognosis Юлия Finney MD [facility] O: [phone] F: [phone] Subjective Date of service: 07/04/20 Principal diagnosis: ARF/Septic Shock/COVID-19 PNA, AF with RVR Interval history: Afebrile, normal white count. Objective - Exam Narrative Exam: Physical exam deferred due to PPE conservation strategy. Please refer to primary team's note. - Constitutional Vitals: Vital Signs Temp Pulse Resp BP Pulse Ox 97.9 F 106 H 17 114/62 99 07/04/20 13:15 07/04/20 17:00 07/04/20 17:00 07/04/20 17:00 07/04/20 17:00 Temperature -Last 24 Hours Temperature 97.9 F Temperature 99.3 F Temperature 99.3 F Temperature 98.5 F Temperature 98.6 F Temperature 98.4 F Temperature 98.3 F - Labs CBC & Chem 7: 07/04/20 05:20 07/04/20 05:20 Labs: Abnormal lab results 07/01/20 07/03/20 07/04/20 Range/Units 11:04 16:47 05:20 WBC 11.8 H (4.5-11.0) K/mm3 RBC 2.32 L (3.65-5.03) M/mm3 Hgb 6.7 L (11.8-15.2) gm/dl Hct 20.8 L (35.5-45.6) % Lymph % (Auto) 2.6 L (13.4-35.0) % Lymph # (Auto) 0.3 L (1.2-5.4) K/mm3 Seg Neutrophils # 11.0 H (1.8-7.7) K/mm3 ABG pH (7.350-7.450) pH Units ABG pO2 (80.0-90.0) mm Hg ABG HCO3 (20.0-26.0) mmol/L ABG Hemoglobin (14.0-18.0) gm/dl Potassium (3.6-5.0) mmol/L Chloride (98-107) mmol/L BUN (9-20) mg/dL Creatinine (0.8-1.3) mg/dL Glucose (75-100) mg/dL POC Glucose 107 H (70-105) mg/dL Calcium (8.4-10.2) mg/dL Crossmatch See Detail 07/04/20 07/04/20 07/04/20 Range/Units 05:20 05:20 05:50 WBC (4.5-11.0) K/mm3 RBC (3.65-5.03) M/mm3 Hgb (11.8-15.2) gm/dl Hct (35.5-45.6) % Lymph % (Auto) (13.4-35.0) % Lymph # (Auto) (1.2-5.4) K/mm3 Seg Neutrophils # (1.8-7.7) K/mm3 ABG pH 7.324 L (7.350-7.450) pH Units ABG pO2 98.9 H (80.0-90.0) mm Hg ABG HCO3 26.8 H (20.0-26.0) mmol/L ABG Hemoglobin < 5.1 L (14.0-18.0) gm/dl Potassium 6.0 H (3.6-5.0) mmol/L Chloride 97.8 L (98-107) mmol/L BUN 75 H (9-20) mg/dL Creatinine 4.5 H (0.8-1.3) mg/dL Glucose 121 H (75-100) mg/dL POC Glucose 114 H (70-105) mg/dL Calcium 7.9 L (8.4-10.2) mg/dL Crossmatch 07/04/20 07/04/20 Range/Units 09:25 12:33 WBC (4.5-11.0) K/mm3 RBC (3.65-5.03) M/mm3 Hgb (11.8-15.2) gm/dl Hct (35.5-45.6) % Lymph % (Auto) (13.4-35.0) % Lymph # (Auto) (1.2-5.4) K/mm3 Seg Neutrophils # (1.8-7.7) K/mm3 ABG pH (7.350-7.450) pH Units ABG pO2 (80.0-90.0) mm Hg ABG HCO3 (20.0-26.0) mmol/L ABG Hemoglobin (14.0-18.0) gm/dl Potassium (3.6-5.0) mmol/L Chloride (98-107) mmol/L BUN (9-20) mg/dL Creatinine (0.8-1.3) mg/dL Glucose (75-100) mg/dL POC Glucose 119 H (70-105) mg/dL Calcium (8.4-10.2) mg/dL Crossmatch See Detail
[2020-07-05] MEDS: INSULIN REGULAR, HUMAN 100 UNITS/1 ML SUB-Q SCH ×4 (00:07→17:23)
[2020-07-05] MEDS: dilTIAZem 30 MG TAB PO SCH ×4 (00:22→17:22)
[2020-07-05] MEDS: AMIODARONE 900 MG in DEXTROSE 5% IN WATER 482 ML IV SCH (01:08)
[2020-07-05] MEDS: fentaNYL DRIP Premix 2,000 MCG/100 ML BAG IV SCH ×5 (02:44→19:35)
[2020-07-05 05:23] LABS: ABG Base Excess 0.1 mmol/L (-2.0-3.0); ABG HCO3 26.8 mmol/L (20.0-26.0); ABG Oxygen Saturation 98.7 % (95.0-99.0); ABG PCO2 56.4 mm Hg; ABG PH 7.295 pH Units (7.350-7.450); ABG PO2 151.9 mm Hg (80.0-90.0)
[2020-07-05 05:24] LABS: ABG Methemoglobin 0.5 % (0.0-1.5)
[2020-07-05] MEDS: METOCLOPRAMIDE 10 MG/2 ML INJ IV SCH ×3 (06:05→20:42)
[2020-07-05] MEDS: HEPARIN 5,000 UNIT/1 ML VIAL SUB-Q SCH ×3 (06:28→21:34)
[2020-07-05 08:47] LABS: Basophils # (Auto) 0.1 K/mm3 (0.0-0.1); Basophils % (Auto) 1.2 % (0.0-1.8); Eosinophils # (Auto) 0.1 K/mm3 (0.0-0.4); Hematocrit 23.9 % (35.5-45.6); Hemoglobin 7.9 gm/dl (11.8-15.2); Lymphocytes # (Auto) 0.7 K/mm3 (1.2-5.4); Lymphocytes % (Auto) 7.5 % (13.4-35.0); Mean Corpuscular HGB Conc 33 % (32-34); Mean Corpuscular Volume 87 fl (84-94); Monocytes # (Auto) 0.4 K/mm3 (0.0-0.8); Monocytes % (Auto) 4.5 % (0.0-7.3); Platelet Count 222 K/mm3 (140-440); Red Blood Count 2.77 M/mm3 (3.65-5.03); Red Cell Distribution Width 16.7 % (13.2-15.2)
[2020-07-05 09:09] LABS: Albumin 1.9 g/dL (3.9-5); Bilirubin,Direct 0.5 mg/dL (0-0.2); Calcium 7.6 mg/dL (8.4-10.2)
[2020-07-05] MEDS: QUEtiapine 200 MG TAB PO SCH ×2 (09:52→21:29)
[2020-07-05] MEDS: DOCUSATE SODIUM 100 MG/10 ML ORAL LIQD FEEDTUBE SCH ×2 (09:52→21:29)
[2020-07-05] MEDS: ASCORBIC ACID 250 MG TAB PO SCH ×2 (09:52→21:29)
[2020-07-05] MEDS: POLYETHYLENE GLYCOL 3350 17 GM POWDER PO SCH (09:52)
[2020-07-05] MEDS: FAMOTIDINE 20 MG/2 ML INJ IV SCH (09:53)
[2020-07-05] MEDS: CHOLECALCIFEROL (VIT D3) 1000 UNIT (25 mcg) TAB PO SCH (09:53)
[2020-07-05] MEDS: dexAMETHasone 4 MG/ML VIAL IV SCH (09:53)
[2020-07-05] MEDS: ZINC SULFATE 220 MG CAP PO SCH ×2 (09:53→21:29)
--- NOTE | 2020-07-05 10:11 | Progress Note ---
Assessment and Plan tele reviewed - currently in AFib HR 90s. Cont IV amio and PO cardizem with hold parameters as BPs permit - pt is intermittently requiring vasopressors. Severe anemia noted. Heparin gtt held. PRBC tx PRN per primary. Further eval/management per primary. Pt is critically ill. Overall guarded prognosis. The patient has been seen in conjunction with Dr. Singh who agrees with the assessment and plan of care. - Patient Problems (1) Acute respiratory failure with hypoxia Current Visit: Yes Status: Acute (2) Pneumonia due to COVID-19 virus Current Visit: Yes Status: Acute (3) Sepsis Current Visit: Yes Status: Acute Qualifiers: Severe sepsis acute organ dysfunction type: acute respiratory failure Severe sepsis shock status: with septic shock (4) Atrial fibrillation with rapid ventricular response Current Visit: Yes Status: Acute (5) Acute renal failure Current Visit: Yes Status: Acute (6) Elevated LFTs Current Visit: Yes Status: Acute (7) Anemia Current Visit: Yes Status: Acute Subjective Date of service: 07/05/20 Principal diagnosis: ARF/Septic Shock/COVID-19 PNA, AF with RVR Interval history: pt remains intubated, sedated. intermittently requiring vasopressor support. on amio gtt. tele reviewed - currently in AFib/AFlutter HR 90s. Objective Last Vital Signs Temp 97.9 F 07/05/20 08:00 Pulse 101 H 07/05/20 08:30 Resp 21 07/05/20 06:15 BP 101/49 07/05/20 08:30 Pulse Ox 99 07/05/20 08:30 - Physical Examination General: Other (intubated, lethargic) Neck: Positive: neck supple Cardiac: Positive: irregularly irregular, S1/S2 Lungs: Positive: Decreased Breath Sounds, Oxygen, Ventilated Respirations Neuro: Positive: Other (intubated, lethargic) Abdomen: Positive: Soft Skin: Negative: Rash, Wound Extremities: Present: upper extr. pulses, lower extr. pulses, +1 Edema - Labs and Meds Cardiac Enzymes 07/05/20 Range/Units 08:21 AST 75 H (5-40) units/L Lipids 07/05/20 Range/Units 08:21 Triglycerides 258 H (2-149) mg/dL CBC 07/05/20 Range/Units 08:21 WBC 9.1 (4.5-11.0) K/mm3 RBC 2.77 L (3.65-5.03) M/mm3 Hgb 7.9 L (11.8-15.2) gm/dl Hct 23.9 L (35.5-45.6) % Plt Count 222 (140-440) K/mm3 Lymph # (Auto) 0.7 L (1.2-5.4) K/mm3 Sac # (Auto) 0.4 (0.0-0.8) K/mm3 Eos # (Auto) 0.1 (0.0-0.4) K/mm3 Baso # (Auto) 0.1 (0.0-0.1) K/mm3 Comprehensive Metabolic Panel 07/05/20 Range/Units 08:21 Sodium 133 L (137-145) mmol/L Potassium 5.6 H (3.6-5.0) mmol/L Chloride 94.4 L (98-107) mmol/L Carbon Dioxide 26 (22-30) mmol/L BUN 80 H (9-20) mg/dL Creatinine 4.2 H (0.8-1.3) mg/dL Glucose 114 H (75-100) mg/dL Calcium 7.6 L (8.4-10.2) mg/dL Direct Bilirubin 0.5 H (0-0.2) mg/dL Indirect Bilirubin 0.1 mg/dL AST 75 H (5-40) units/L ALT 86 H (7-56) units/L Alkaline Phosphatase 107 (35-129) units/L Total Protein 5.6 L D (6.3-8.2) g/dL Albumin 1.9 L (3.9-5) g/dL - Imaging and Cardiology EKG: report reviewed, image reviewed Echo: report reviewed (TDS, EF 55-60%. ) - Telemetry EKG Rhythm: Atrial Fibrillation - EKG Sinus rhythms and dysrhythmias: sinus tachycardia - Allied health notes Allied health notes reviewed: nursing
[2020-07-05] MEDS: SODIUM BICARBONATE 650 MG TAB PO SCH ×3 (10:36→20:42)
[2020-07-05] MEDS: SODIUM POLYSTYRENE 15 GM/60 ML ORAL LIQD PO PRN (10:36)
[2020-07-05] MEDS ORDERED: SODIUM POLYSTYRENE 15 GM/60 ML ORAL LIQD PO NR (11:00)
--- NOTE | 2020-07-05 11:02 | Progress Note ---
Assessment and Plan - Patient Problems (1) GIRISH (acute kidney injury) Current Visit: Yes Status: Acute Plan to address problem: Acute kidney failure 2/2 prerenal azotemia versus acute tubular necrosis, patient without significant renal recovery, remains dialysis dependendt. cont HD on MWF schedule (2) Severe sepsis with septic shock Current Visit: Yes Status: Acute Plan to address problem: Continue antibiotics per infectious disease functional consultant appropriately adjusted to the degree of renal function. Patient is on intermittent vasopressors to maint ain MAP > 65mmHg . (3) Hyperkalemia Current Visit: Yes Status: Acute Plan to address problem: K improved with HD, but still elevated. added additional Kayexalate 30g x 1 dose. cont 2g K renal diet (4) Metabolic acidosis Current Visit: Yes Status: Acute Plan to address problem: Acidosis improving with dialysis. (5) Acute respiratory failure with hypoxia Current Visit: Yes Status: Acute Plan to address problem: Continue respiratory management by pulmonary (6) Pneumonia due to COVID-19 virus Current Visit: Yes Status: Acute Plan to address problem: IV Dexamethasone Supplemental oxygen/Respiratory support as needed Proning as tolerated Remdesevir contra-indicated due to Kidney failure Prophylactic anticoagulation Trend inflammatory markers to assess disease progression and prognosis Subjective Date of service: 07/05/20 Principal diagnosis: ARF/Septic Shock/COVID-19 PNA, AF with RVR Interval history: Patient was not examined today due to the COVID-19 status 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 I reviewed multidisciplinary notes and discussed with staff and physicians as needed. Patient is sedated on propofol and fentanyl. He is on anticoagulation with intravenous heparin. HD well tolerated yesterday with 1L UF. pt remains off vasopressors, on ventilator support with FiO2 70%, pt remains in Afib, rate controlled on IV amio/po cardizem. Objective - Exam Narrative Exam: exam deferred d/t PPE preservation - Vital Signs Vital signs: Vital Signs - 12hr 07/04/20 07/04/20 07/04/20 23:00 23:15 23:28 Temperature 98.2 F Pulse Rate 95 H 91 H Pulse Rate [ Right Dorsalis Pedis] Respiratory 15 21 Rate Blood Pressure 104/50 111/56 O2 Sat by Pulse 96 98 Oximetry 07/04/20 07/04/20 07/05/20 23:30 23:45 00:00 Temperature Pulse Rate 93 H 103 H 94 H Pulse Rate [ Right Dorsalis Pedis] Respiratory 17 19 20 Rate Blood Pressure 98/54 107/54 104/52 O2 Sat by Pulse 98 98 98 Oximetry 07/05/20 07/05/20 07/05/20 00:15 00:22 00:30 Temperature Pulse Rate 105 H 105 H 94 H Pulse Rate [ Right Dorsalis Pedis] Respiratory 17 19 Rate Blood Pressure 106/51 106/51 107/55 O2 Sat by Pulse 99 99 Oximetry 07/05/20 07/05/20 07/05/20 00:44 00:45 01:00 Temperature Pulse Rate 106 H 99 H 100 H Pulse Rate [ Right Dorsalis Pedis] Respiratory 16 18 Rate Blood Pressure 104/52 102/49 105/53 O2 Sat by Pulse 99 99 99 Oximetry 07/05/20 07/05/20 07/05/20 01:15 01:31 01:45 Temperature Pulse Rate 93 H 100 H 95 H Pulse Rate [ Right Dorsalis Pedis] Respiratory 19 22 19 Rate Blood Pressure 104/57 130/62 113/54 O2 Sat by Pulse 99 99 99 Oximetry 07/05/20 07/05/20 07/05/20 02:00 02:15 02:30 Temperature Pulse Rate 91 H 90 97 H Pulse Rate [ Right Dorsalis Pedis] Respiratory 21 21 20 Rate Blood Pressure 110/54 109/51 111/52 O2 Sat by Pulse 99 99 99 Oximetry 07/05/20 07/05/20 07/05/20 02:45 03:00 03:15 Temperature Pulse Rate 94 H 112 H 99 H Pulse Rate [ Right Dorsalis Pedis] Respiratory 16 19 22 Rate Blood Pressure 108/52 110/54 109/60 O2 Sat by Pulse 99 99 99 Oximetry 07/05/20 07/05/20 07/05/20 03:22 03:30 03:45 Temperature 97.3 F L Pulse Rate 102 H 95 H Pulse Rate [ Right Dorsalis Pedis] Respiratory 18 16 Rate Blood Pressure 97/50 101/47 O2 Sat by Pulse 98 98 Oximetry 07/05/20 07/05/20 07/05/20 04:00 04:15 04:30 Temperature Pulse Rate 100 H 96 H 90 Pulse Rate [ 92 H Right Dorsalis Pedis] Respiratory 12 17 14 Rate Blood Pressure 98/50 102/49 98/50 O2 Sat by Pulse 98 99 98 Oximetry 07/05/20 07/05/20 07/05/20 04:45 05:00 05:15 Temperature Pulse Rate 89 90 82 Pulse Rate [ Right Dorsalis Pedis] Respiratory 15 21 15 Rate Blood Pressure 102/57 114/54 113/48 O2 Sat by Pulse 99 98 99 Oximetry 07/05/20 07/05/20 07/05/20 05:30 05:45 06:00 Temperature Pulse Rate 98 H 95 H 92 H Pulse Rate [ Right Dorsalis Pedis] Respiratory 17 15 13 Rate Blood Pressure 103/55 106/52 114/47 O2 Sat by Pulse 99 98 98 Oximetry 07/05/20 07/05/20 07/05/20 06:04 06:15 08:00 Temperature 97.9 F Pulse Rate 96 H 93 H 106 H Pulse Rate [ Right Dorsalis Pedis] Respiratory 21 Rate Blood Pressure 114/47 116/71 O2 Sat by Pulse 99 Oximetry 07/05/20 08:30 Temperature Pulse Rate 101 H Pulse Rate [ Right Dorsalis Pedis] Respiratory Rate Blood Pressure 101/49 O2 Sat by Pulse 99 Oximetry - Lab 07/05/20 08:21 07/05/20 08:21 Most recent lab results ABG pH 7.295 pH Units (7.350-7.450) L 07/05/20 04:30 ABG pCO2 56.4 mm Hg 07/05/20 04:30 ABG pO2 151.9 mm Hg (80.0-90.0) H 07/05/20 04:30 ABG HCO3 26.8 mmol/L (20.0-26.0) H 07/05/20 04:30 ABG O2 Saturation 98.7 % (95.0-99.0) 07/05/20 04:30 Calcium 7.6 mg/dL (8.4-10.2) L 07/05/20 08:21 Phosphorus 9.40 mg/dL (2.5-4.5) H 06/30/20 03:50 Magnesium 2.70 mg/dL (1.7-2.3) H 06/18/20 20:33 Urine Creatinine 192.4 mg/dL (0.1-20.0) H 06/18/20 15:00 Urine Sodium 28 mmol/L 06/18/20 15:00 Medications & Allergies - Medications Allergies/Adverse Reactions: Allergies No Known Allergies Allergy (Unverified 06/17/20 14:24) Home Medications: Home Medications Medication Instructions Recorded Confirmed Last Taken Type Losartan/Hydrochlorothiazide 1 each PO QDAY 06/19/20 06/19/20 Unknown History [Losartan-Hctz 100-25 mg Tab] amLODIPine [Norvasc] 5 mg PO DAILY 06/19/20 06/19/20 Unknown History Active Medications: Generic Name Dose Route Start Last Admin Trade Name Freq PRN Reason Stop Dose Admin Acetaminophen 650 mg 06/17/20 14:17 07/03/20 09:16 Acetaminophen 325 Mg Tab PO 650 mg Q4H PRN Administration Pain MILD(1-3)/Fever >100.5/ROBERTS Lipase/Protease/Amylase 1 each 06/19/20 12:15 Lipase 10,500/Protease 25,000/Amylase 43,750 (Units) Dr Kulkarni FEEDTUBE PRN PRN For Clogged Feeding Tube Ascorbic Acid 250 mg 06/17/20 22:00 07/05/20 09:52 Ascorbic Acid 250 Mg Tab PO 250 mg BID CONNOR Administration Cholecalciferol 1,000 unit 06/18/20 10:00 07/05/20 09:53 Cholecalciferol (Vit D3) 1000 Unit (25 Mcg) Tab PO 1,000 unit DAILY CONNOR Administration Dexamethasone 6 mg 07/03/20 14:00 07/05/20 09:53 Dexamethasone 4 Mg/Ml Vial IV 07/13/20 13:59 6 mg DAILY CONNOR Administration Diltiazem HCl 30 mg 07/02/20 12:00 07/05/20 06:04 Diltiazem 30 Mg Tab PO 30 mg Q6HR CONNOR Administration Docusate Sodium 100 mg 06/23/20 15:00 07/05/20 09:52 Docusate Sodium 100 Mg/10 Ml Oral Liqd FEEDTUBE 100 mg BID CONNOR Administration Famotidine 20 mg 06/20/20 11:00 07/05/20 09:53 Famotidine 20 Mg/2 Ml Inj IV 20 mg DAILY CONNOR Administration Fentanyl 50 mcg 06/18/20 01:02 06/28/20 04:32 Fentanyl 100 Mcg/2 Ml Inj IV 50 mcg Q10MIN PRN Administration ANALGESIA Heparin Sodium (Porcine) 5,000 unit 06/22/20 12:53 06/30/20 13:36 Heparin 10,000 Unit/1 Ml Vial IV 5,000 unit PAM PRN Administration hemodialysis Heparin Sodium (Porcine) 5,000 unit 07/03/20 22:00 07/05/20 06:28 Heparin 5,000 Unit/1 Ml Vial SUB-Q 5,000 unit Q8HR CONNOR Administration Hydrophilic Ointment 1 applic 06/17/20 22:52 07/02/20 20:45 Lip Therapy Vaseline TP 1 applic Q2HR PRN Administration Dry Lips Norepinephrine 4 mg in 250 mls @ 7.5 mls/hr 06/18/20 00:00 07/04/20 14:45 Levophed Drip 4 Mg/Ns 250 Ml IV 0 mcg/min TITR CONNOR 0 mls/hr Titration Protocol 2 MCG/MIN Propofol 1,000 mg in 100 mls @ 3.402 mls/hr 06/18/20 01:00 07/05/20 01:08 Diprivan 10 Mg/Ml IV 15 mcg/kg/min TITR CONNOR 10.206 mls/hr Administration Protocol 5 MCG/KG/MIN Fentanyl Citrate 2,000 mcg in 100 mls @ 5.67 mls/hr 06/18/20 02:00 07/05/20 08:39 Fentanyl Drip Premix IV 3 mcg/kg/hr TITR CONNOR 17.01 mls/hr Administration Protocol 1 MCG/KG/HR Sodium Chloride 500 mls @ 1 mls/hr 06/18/20 09:38 06/19/20 21:37 Nacl 0.9% 500 Ml IV 0 mls/hr DIRECT PRN Infusion ARTERIAL LINE FLUSH Amiodarone HCl 900 mg/ 500 mls @ 33.333 mls/hr 06/28/20 15:00 07/05/20 01:08 Dextrose IV 0.5 mg/min DIRECT CONNOR 16.667 mls/hr Administration Protocol 1 MG/MIN Sodium Chloride 100 mls @ 999 mls/hr 07/03/20 11:11 Nacl 0.9% IV PAM PRN Hypotension Insulin Human Regular 0 units 06/18/20 12:00 07/05/20 05:59 Insulin Regular, Human 100 Units/1 Ml SUB-Q Not Given Q6HR CONNOR Protocol Metoclopramide HCl 10 mg 06/28/20 13:00 07/05/20 06:05 Metoclopramide 10 Mg/2 Ml Inj IV 10 mg Q8H CONNOR Administration Multi-Ingred Cream/Lotion/Oil/Oint 1 applic 06/17/20 22:52 Mineral Oil/Petrolatum, White Ophth Oint 3.5 Gm OU Q4HR PRN Dry Eye(s) Ondansetron HCl 4 mg 06/17/20 14:17 Ondansetron 4 Mg/2 Ml Inj IV Q8H PRN Nausea And Vomiting Polyethylene Glycol 17 gm 06/23/20 15:00 07/05/20 09:52 Polyethylene Glycol 3350 17 Gm Powder PO 17 gm QDAY CONNOR Administration Quetiapine Fumarate 200 mg 06/28/20 13:00 07/05/20 09:52 Quetiapine 200 Mg Tab PO 200 mg BID CONNOR Administration Simple Syrup 15 ml 06/19/20 12:15 Simple Syrup 15 Ml FEEDTUBE PRN PRN Hypoglycemia Simple Syrup 30 ml 06/19/20 12:15 Simple Syrup 15 Ml FEEDTUBE PRN PRN Hypoglycemia Sodium Bicarbonate 325 mg 06/19/20 12:15 Sodium Bicarbonate 325 Mg Tab FEEDTUBE PRN PRN For Clogged Feeding Tube Sodium Bicarbonate 650 mg 07/04/20 10:00 07/05/20 10:36 Sodium Bicarbonate 650 Mg Tab PO 650 mg TID CONNOR Administration Sodium Chloride 10 ml 06/17/20 22:00 07/05/20 09:54 Sodium Chloride 0.9% 10 Ml Flush Syringe IV 10 ml BID CONNOR Administration Sodium Chloride 10 ml 06/17/20 14:17 Sodium Chloride 0.9% 10 Ml Flush Syringe IV PRN PRN LINE FLUSH Sodium Polystyrene Sulfonate 15 gm 07/03/20 11:19 07/05/20 10:36 Sodium Polystyrene 15 Gm/60 Ml Oral Liqd PO 15 gm Q6HR PRN Administration Hyperkalemia Zinc Sulfate 220 mg 06/17/20 22:00 07/05/20 09:53 Zinc Sulfate 220 Mg Cap PO 220 mg BID CONNOR Administration
--- NOTE | 2020-07-05 12:43 | Progress Note ---
Assessment and Plan Acute hypoxemic respiratory failure due to COVID-19 Severe COVID infection Severe Sepsis with shock Bilateral pneumonia Acute kidney injury (GIRISH) with acute tubular necrosis (ATN) Elevated liver enzymes Obesity - therapeutic anticoagulation on hold - received hyperkalemia cocktail - continue HD/UF per nephrology prescription - keep peep at 14 - reduced FiO2 to 60% - continue dexamethasone re: worsening acidosis & continued positive status while trending serum inflamatory markers - will evaluate daily for resumption of anticoagulation - continue care as below otherwise; - continue daily SAT's & SBT's as tolerated - continue tube feeds and advance to goal rate as tolerated - continue HD/UF per nephrology team for toxin and volume clearance - continue bowel regimen - rate control per cardiology team for afib RVR - Continue to wean supplemental oxygen for O2 sats >92% - Monitor blood pressure closely while optimizing sedation,wean vasopressor support for MAP > 65 mmHg - Critical care prone positioning - VAP bundle addressed, aspiration precautions HOB >40 - continue lung protective strategies, permissive hypercapnic acceptable. - continue bronchodilators with pulmonary hygiene per RT - wean per pulmonary driven protocols otherwise - accuchecks with glycemic control per SSI (While critically ill target blood glucose of 140-180 mg/dL; avoid hypoglycemia) - sedation prn for target RASS -1 to -2 - continue enteral nutritional support at goal rate as tolerated - s/p antibiotics per ID recommendations - Monitor liver function test ,avoid hepatotoxic agents - azotemia per nephrology rec's - Avoid nephrotoxins, renally dose all medications, conservative fluid management - continue to avoid benzodiazepines, reduce the possibility of delirium, - prn analgesia per CPOT score - Maintenance of sleep-wake cycle, avoid delirium - Stress ulcer prophylaxis, Famotidine - PT/OT/ROM exercises - Mobility protocols for pressure ulcer prevention - CXR, ABG in am - CBC, CMP in am - Supportive transfusions to keep HgB >7g/dL - Monitor hemodynamics closely - continue other care per attending / other consultants COVID SPECIFIC INTERVENTIONS - continue steroids: Dexamethasone - continue with Remdesivir - monitor inflammatory markers - ferritin, D-dimer, CRP, LDH per facility protoc ol - continue anticoagulation per System Protocol based on d-dimer - continue contact and airborne isolation CONDITION: CRITICAL PROGNOSIS: GUARDED CODE STATUS: FULL CODE The high probability of a clinically significant, sudden or life-threatening deterioration of the [respiratory, cardiovascular, hematologic & neurologic] system(s) required my full and direct attention, intervention and personal management. The aggregate critical care time was [35] minutes without overlap. Time includes spent on; [x] Data Review and interpretation [x] Patient assessment and monitoring of vital signs [x] Documentation [x] Medication orders and management He was evaluated in the context of the global COVID-19 pandemic, which necessitated consideration that the patient might be at risk for infection with the virus that causes COVID-19. Institutional protocols and algorithms that pertain to the evaluation of patients at risk for COVID-19 are in a state of rapid change based on information released by regulatory bodies including the CDC and federal and state organizations. These policies and algorithms were followed during the patient's care in the ICU Please note that these policies, procedures and recommendations changed on a rapid basis. Subjective Date of service: 07/05/20 Principal diagnosis: ARF/Septic Shock/COVID-19 PNA, AF with RVR Interval history: Patient is seen today for: Ac hypoxemic respiratory failure; COVID-19; Severe Sepsis with shock; Zackery. pneumonia; GIRISH; Elevated liver enzymes; Obesity Seen and examined at bedside; 24hour events reviewed; nursing and respiratory care staff consulted; no adverse overnight events reported to me; resting in bed; remains on MVS; remains dialysis dependent and oliguric; responds to name calling but not following commands; no emesis or overt aspiration Objective Vital Signs - 12hr 07/05/20 07/05/20 07/05/20 00:44 00:45 01:00 Temperature Pulse Rate 106 H 99 H 100 H Pulse Rate [ From Monitor] Pulse Rate [ Right Dorsalis Pedis] Respiratory 16 18 Rate Blood Pressure 104/52 102/49 105/53 O2 Sat by Pulse 99 99 99 Oximetry 07/05/20 07/05/20 07/05/20 01:15 01:31 01:45 Temperature Pulse Rate 93 H 100 H 95 H Pulse Rate [ From Monitor] Pulse Rate [ Right Dorsalis Pedis] Respiratory 19 22 19 Rate Blood Pressure 104/57 130/62 113/54 O2 Sat by Pulse 99 99 99 Oximetry 07/05/20 07/05/20 07/05/20 02:00 02:15 02:30 Temperature Pulse Rate 91 H 90 97 H Pulse Rate [ From Monitor] Pulse Rate [ Right Dorsalis Pedis] Respiratory 21 21 20 Rate Blood Pressure 110/54 109/51 111/52 O2 Sat by Pulse 99 99 99 Oximetry 07/05/20 07/05/20 07/05/20 02:45 03:00 03:15 Temperature Pulse Rate 94 H 112 H 99 H Pulse Rate [ From Monitor] Pulse Rate [ Right Dorsalis Pedis] Respiratory 16 19 22 Rate Blood Pressure 108/52 110/54 109/60 O2 Sat by Pulse 99 99 99 Oximetry 07/05/20 07/05/20 07/05/20 03:22 03:30 03:45 Temperature 97.3 F L Pulse Rate 102 H 95 H Pulse Rate [ From Monitor] Pulse Rate [ Right Dorsalis Pedis] Respiratory 18 16 Rate Blood Pressure 97/50 101/47 O2 Sat by Pulse 98 98 Oximetry 07/05/20 07/05/20 07/05/20 04:00 04:15 04:30 Temperature Pulse Rate 100 H 96 H 90 Pulse Rate [ From Monitor] Pulse Rate [ 92 H Right Dorsalis Pedis] Respiratory 12 17 14 Rate Blood Pressure 98/50 102/49 98/50 O2 Sat by Pulse 98 99 98 Oximetry 07/05/20 07/05/20 07/05/20 04:45 05:00 05:15 Temperature Pulse Rate 89 90 82 Pulse Rate [ From Monitor] Pulse Rate [ Right Dorsalis Pedis] Respiratory 15 21 15 Rate Blood Pressure 102/57 114/54 113/48 O2 Sat by Pulse 99 98 99 Oximetry 07/05/20 07/05/20 07/05/20 05:30 05:45 06:00 Temperature Pulse Rate 98 H 95 H 92 H Pulse Rate [ From Monitor] Pulse Rate [ Right Dorsalis Pedis] Respiratory 17 15 13 Rate Blood Pressure 103/55 106/52 114/47 O2 Sat by Pulse 99 98 98 Oximetry 07/05/20 07/05/20 07/05/20 06:04 06:15 06:30 Temperature Pulse Rate 96 H 93 H 104 H Pulse Rate [ From Monitor] Pulse Rate [ Right Dorsalis Pedis] Respiratory 21 16 Rate Blood Pressure 114/47 116/71 131/63 O2 Sat by Pulse 99 95 Oximetry 07/05/20 07/05/20 07/05/20 06:45 07:00 07:15 Temperature Pulse Rate 98 H 83 95 H Pulse Rate [ From Monitor] Pulse Rate [ Right Dorsalis Pedis] Respiratory 15 15 18 Rate Blood Pressure 106/53 109/48 101/49 O2 Sat by Pulse 96 97 97 Oximetry 07/05/20 07/05/20 07/05/20 07:30 07:45 08:00 Temperature 97.9 F Pulse Rate 91 H 89 100 H Pulse Rate [ 102 H From Monitor] Pulse Rate [ 102 H Right Dorsalis Pedis] Respiratory 14 16 18 Rate Blood Pressure 95/43 86/47 102/49 O2 Sat by Pulse 98 97 98 Oximetry 07/05/20 07/05/20 07/05/20 08:15 08:30 08:45 Temperature Pulse Rate 92 H 97 H 87 Pulse Rate [ From Monitor] Pulse Rate [ Right Dorsalis Pedis] Respiratory 15 16 20 Rate Blood Pressure 101/49 109/45 109/51 O2 Sat by Pulse 98 98 98 Oximetry 07/05/20 07/05/20 07/05/20 09:00 09:15 09:30 Temperature Pulse Rate 92 H 91 H 87 Pulse Rate [ From Monitor] Pulse Rate [ Right Dorsalis Pedis] Respiratory 21 19 20 Rate Blood Pressure 97/52 106/52 101/48 O2 Sat by Pulse 98 98 98 Oximetry 07/05/20 07/05/20 07/05/20 09:45 10:00 10:16 Temperature Pulse Rate 91 H 92 H 90 Pulse Rate [ From Monitor] Pulse Rate [ Right Dorsalis Pedis] Respiratory 18 14 16 Rate Blood Pressure 91/49 87/51 93/54 O2 Sat by Pulse 98 97 97 Oximetry 07/05/20 07/05/20 07/05/20 10:30 10:45 11:00 Temperature Pulse Rate 81 97 H 90 Pulse Rate [ From Monitor] Pulse Rate [ Right Dorsalis Pedis] Respiratory 16 18 19 Rate Blood Pressure 98/50 97/53 105/52 O2 Sat by Pulse 97 98 98 Oximetry 07/05/20 07/05/20 11:56 12:07 Temperature Pulse Rate 90 92 H Pulse Rate [ From Monitor] Pulse Rate [ Right Dorsalis Pedis] Respiratory Rate Blood Pressure 131/63 O2 Sat by Pulse 98 Oximetry Constitutional: appears uncomfortable, other (morbidly obese, atraumatic, normocephalic, mild resp distress, orally intuabted) Eyes: non-icteric ENT: oropharynx moist, other (ETT 24 cm TROY) Neck: supple, no lymphadenopathy, other (Large , short neck) Effort: mildly labored Ascultation: Bilateral: diminished breath sounds, rhonchi (scant) Percussion: Bilateral: not dull Cardiovascular: irregular rhythm, other (S1,S2) Gastrointestinal: normoactive bowel sounds, non-distended (protuberant), other (OG Tube) Integumentary: rash, other (Femoral CVC, Newell catheter) Extremities: no edema, pink and warm, pulses normal, no ischemia or petechiae, edema (trace to 1+) Neurologic: non-focal exam (grossly), pupils equal and round, other (unable to assess, sedated) Psychiatric: other (unable to assess, sedated) CBC and BMP: 07/05/20 08:21 07/05/20 08:21 ABG, PT/INR, D-dimer: ABG ABG pH 7.295 pH Units (7.350-7.450) L 07/05/20 04:30 POC ABG pCO2 39.6 mmHg (32.0-48.0) 07/03/20 03:54 ABG pCO2 56.4 mm Hg 07/05/20 04:30 POC ABG pO2 66.1 mmHg (83-108) L 07/03/20 03:54 ABG pO2 151.9 mm Hg (80.0-90.0) H 07/05/20 04:30 POC ABG HCO3 23.9 07/03/20 03:54 ABG O2 Saturation 98.7 % (95.0-99.0) 07/05/20 04:30 PT/INR, D-dimer PT 17.4 Sec. (12.2-14.9) H 06/26/20 05:47 INR 1.44 (0.87-1.13) H 06/26/20 05:47 D-Dimer 6608.00 ng/mlDDU (0-234) H 07/03/20 14:50 Abnormal lab findings: Abnormal Labs 06/17/20 06/17/20 06/17/20 12:33 12:33 12:33 WBC 19.5 H RBC 5.18 H Hgb 15.5 H Hct RDW Lymph % (Auto) 3.8 L Lymph # (Auto) 0.7 L [place] # (Auto) Seg Neutrophils % Seg Neuts % (Manual) 99.0 H Lymphocytes % (Manual) 1.0 L Nucleated RBC % Seg Neutrophils # 18.2 H Seg Neutrophils # Man 19.3 H Lymphocytes # (Manual) 0.2 L Monocytes # (Manual) PT 16.5 H INR 1.33 H APTT D-Dimer 1025.04 H Heparin Anti-Xa Level ABG pH POC ABG pCO2 POC ABG pO2 ABG pO2 ABG HCO3 ABG Hemoglobin ABG Oxyhemoglobin ABG Sodium ABG Potassium ABG Chloride ABG Glucose Carboxyhemoglobin Sodium 130 L Potassium 3.4 L Chloride 95.0 L Carbon Dioxide BUN 21 H Creatinine Glucose 137 H POC Glucose Lactic Acid Calcium 7.9 L Phosphorus Magnesium Ferritin Direct Bilirubin AST 84 H ALT 67 H Lactate Dehydrogenase 437 H Total Creatine Kinase 310 H C-Reactive Protein 27.90 H Total Protein Albumin 2.9 L Triglycerides Arterial Blood Glucose Arterial Blood Ionized Calcium Urine Creatinine Urine Chloride Vancomycin Trough Coronavirus (PCR) Crossmatch 06/17/20 06/17/20 06/17/20 12:33 12:33 14:48 WBC RBC Hgb Hct RDW Lymph % (Auto) Lymph # (Auto) [place] # (Auto) Seg Neutrophils % Seg Neuts % (Manual) Lymphocytes % (Manual) Nucleated RBC % Seg Neutrophils # Seg Neutrophils # Man Lymphocytes # (Manual) Monocytes # (Manual) PT INR APTT D-Dimer Heparin Anti-Xa Level ABG pH POC ABG pCO2 POC ABG pO2 ABG pO2 ABG HCO3 ABG Hemoglobin ABG Oxyhemoglobin ABG Sodium ABG Potassium ABG Chloride ABG Glucose Carboxyhemoglobin Sodium Potassium Chloride Carbon Dioxide BUN Creatinine Glucose POC Glucose Lactic Acid 2.50 H* 2.20 H* Calcium Phosphorus Magnesium Ferritin 2297.0 H Direct Bilirubin AST ALT Lactate Dehydrogenase Total Creatine Kinase C-Reactive Protein Total Protein Albumin Triglycerides Arterial Blood Glucose Arterial Blood Ionized Calcium Urine Creatinine Urine Chloride Vancomycin Trough Coronavirus (PCR) Crossmatch 06/17/20 06/17/20 06/17/20 14:48 14:48 14:48 WBC RBC Hgb Hct RDW Lymph % (Auto) Lymph # (Auto) [place] # (Auto) Seg Neutrophils % Seg Neuts % (Manual) Lymphocytes % (Manual) Nucleated RBC % Seg Neutrophils # Seg Neutrophils # Man Lymphocytes # (Manual) Monocytes # (Manual) PT INR APTT D-Dimer 939.89 H Heparin Anti-Xa Level ABG pH POC ABG pCO2 POC ABG pO2 ABG pO2 ABG HCO3 ABG Hemoglobin ABG Oxyhemoglobin ABG Sodium ABG Potassium ABG Chloride ABG Glucose Carboxyhemoglobin Sodium Potassium Chloride Carbon Dioxide BUN Creatinine Glucose 141 H POC Glucose Lactic Acid Calcium Phosphorus Magnesium Ferritin > 2000.0 H Direct Bilirubin AST ALT Lactate Dehydrogenase 503 H Total Creatine Kinase C-Reactive Protein 24.70 H Total Protein Albumin Triglycerides Arterial Blood Glucose Arterial Blood Ionized Calcium Urine Creatinine Urine Chloride Vancomycin Trough Coronavirus (PCR) Crossmatch 06/17/20 06/17/20 06/17/20 16:54 19:39 23:43 WBC RBC Hgb Hct RDW Lymph % (Auto) Lymph # (Auto) [place] # (Auto) Seg Neutrophils % Seg Neuts % (Manual) Lymphocytes % (Manual) Nucleated RBC % Seg Neutrophils # Seg Neutrophils # Man Lymphocytes # (Manual) Monocytes # (Manual) PT INR APTT D-Dimer Heparin Anti-Xa Level ABG pH 7.571 H POC ABG pCO2 24.3 L POC ABG pO2 41.6 L ABG pO2 ABG HCO3 ABG Hemoglobin ABG Oxyhemoglobin 84.0 L ABG Sodium 131.0 L ABG Potassium ABG Chloride ABG Glucose 163 H Carboxyhemoglobin Sodium Potassium Chloride Carbon Dioxide BUN Creatinine Glucose POC Glucose 185 H Lactic Acid 2.10 H* Calcium Phosphorus Magnesium Ferritin Direct Bilirubin AST ALT Lactate Dehydrogenase Total Creatine Kinase C-Reactive Protein Total Protein Albumin Triglycerides Arterial Blood Glucose 163 H Arterial Blood Ionized Calcium 4.4 L Urine Creatinine Urine Chloride Vancomycin Trough Coronavirus (PCR) Crossmatch 06/18/20 06/18/20 06/18/20 00:17 00:23 03:55 WBC RBC Hgb Hct RDW Lymph % (Auto) Lymph # (Auto) [place] # (Auto) Seg Neutrophils % Seg Neuts % (Manual) Lymphocytes % (Manual) Nucleated RBC % Seg Neutrophils # Seg Neutrophils # Man Lymphocytes # (Manual) Monocytes # (Manual) PT INR APTT D-Dimer Heparin Anti-Xa Level ABG pH POC ABG pCO2 POC ABG pO2 56.5 L 48.3 L ABG pO2 ABG HCO3 ABG Hemoglobin ABG Oxyhemoglobin 86.3 L 81.7 L ABG Sodium 132.9 L 131.0 L ABG Potassium ABG Chloride ABG Glucose 189 H 161 H Carboxyhemoglobin 0.4 L Sodium Potassium Chloride Carbon Dioxide BUN Creatinine Glucose POC Glucose Lactic Acid 3.80 H* Calcium Phosphorus Magnesium Ferritin Direct Bilirubin AST ALT Lactate Dehydrogenase Total Creatine Kinase C-Reactive Protein Total Protein Albumin Triglycerides Arterial Blood Glucose 189 H 161 H Arterial Blood Ionized Calcium 4.3 L 4.2 L Urine Creatinine Urine Chloride Vancomycin Trough Coronavirus (PCR) Crossmatch 06/18/20 06/18/20 06/18/20 05:39 05:39 05:39 WBC 26.2 H RBC Hgb Hct RDW Lymph % (Auto) Lymph # (Auto) [place] # (Auto) Seg Neutrophils % Seg Neuts % (Manual) 90.0 H Lymphocytes % (Manual) 5.0 L Nucleated RBC % Seg Neutrophils # Seg Neutrophils # Man 23.6 H Lymphocytes # (Manual) Monocytes # (Manual) 1.3 H PT INR APTT D-Dimer Heparin Anti-Xa Level ABG pH POC ABG pCO2 POC ABG pO2 ABG pO2 ABG HCO3 ABG Hemoglobin ABG Oxyhemoglobin ABG Sodium ABG Potassium ABG Chloride ABG Glucose Carboxyhemoglobin Sodium 135 L Potassium Chloride 97.5 L Carbon Dioxide 21 L BUN 39 H Creatinine 1.7 H D Glucose 168 H POC Glucose Lactic Acid 3.40 H* Calcium 7.2 L Phosphorus Magnesium Ferritin Direct Bilirubin AST ALT Lactate Dehydrogenase Total Creatine Kinase C-Reactive Protein Total Protein Albumin Triglycerides Arterial Blood Glucose Arterial Blood Ionized Calcium Urine Creatinine Urine Chloride Vancomycin Trough Coronavirus (PCR) Crossmatch 06/18/20 06/18/20 06/18/20 07:24 09:00 10:10 WBC RBC Hgb Hct RDW Lymph % (Auto) Lymph # (Auto) [place] # (Auto) Seg Neutrophils % Seg Neuts % (Manual) Lymphocytes % (Manual) Nucleated RBC % Seg Neutrophils # Seg Neutrophils # Man Lymphocytes # (Manual) Monocytes # (Manual) PT INR APTT D-Dimer Heparin Anti-Xa Level ABG pH POC ABG pCO2 POC ABG pO2 ABG pO2 ABG HCO3 ABG Hemoglobin ABG Oxyhemoglobin ABG Sodium ABG Potassium ABG Chloride ABG Glucose Carboxyhemoglobin Sodium Potassium Chloride Carbon Dioxide BUN Creatinine Glucose POC Glucose Lactic Acid 2.90 H* 3.20 H* Calcium Phosphorus Magnesium Ferritin Direct Bilirubin AST ALT Lactate Dehydrogenase Total Creatine Kinase C-Reactive Protein Total Protein Albumin Triglycerides Arterial Blood Glucose Arterial Blood Ionized Calcium Urine Creatinine Urine Chloride Vancomycin Trough Coronavirus (PCR) Positive A Crossmatch 06/18/20 06/18/20 06/18/20 11:58 14:43 15:00 WBC RBC Hgb Hct RDW Lymph % (Auto) Lymph # (Auto) [place] # (Auto) Seg Neutrophils % Seg Neuts % (Manual) Lymphocytes % (Manual) Nucleated RBC % Seg Neutrophils # Seg Neutrophils # Man Lymphocytes # (Manual) Monocytes # (Manual) PT INR APTT D-Dimer Heparin Anti-Xa Level ABG pH 7.303 L POC ABG pCO2 POC ABG pO2 82.3 L ABG pO2 ABG HCO3 ABG Hemoglobin ABG Oxyhemoglobin ABG Sodium 135.3 L ABG Potassium ABG Chloride ABG Glucose 215 H Carboxyhemoglobin 0.3 L Sodium Potassium Chloride Carbon Dioxide BUN Creatinine Glucose POC Glucose 209 H Lactic Acid Calcium Phosphorus Magnesium Ferritin Direct Bilirubin AST ALT Lactate Dehydrogenase Total Creatine Kinase C-Reactive Protein Total Protein Albumin Triglycerides Arterial Blood Glucose 215 H Arterial Blood Ionized Calcium 4.2 L Urine Creatinine 192.4 H Urine Chloride 31.1 L Vancomycin Trough Coronavirus (PCR) Crossmatch 06/18/20 06/18/20 06/18/20 17:16 19:44 20:33 WBC RBC Hgb Hct RDW Lymph % (Auto) Lymph # (Auto) [place] # (Auto) Seg Neutrophils % Seg Neuts % (Manual) Lymphocytes % (Manual) Nucleated RBC % Seg Neutrophils # Seg Neutrophils # Man Lymphocytes # (Manual) Monocytes # (Manual) PT INR APTT D-Dimer Heparin Anti-Xa Level ABG pH POC ABG pCO2 POC ABG pO2 ABG pO2 ABG HCO3 ABG Hemoglobin ABG Oxyhemoglobin ABG Sodium ABG Potassium ABG Chloride ABG Glucose Carboxyhemoglobin Sodium Potassium Chloride Carbon Dioxide BUN Creatinine Glucose POC Glucose 182 H Lactic Acid 3.00 H* Calcium Phosphorus Magnesium 2.70 H Ferritin Direct Bilirubin AST ALT Lactate Dehydrogenase Total Creatine Kinase C-Reactive Protein Total Protein Albumin Triglycerides Arterial Blood Glucose Arterial Blood Ionized Calcium Urine Creatinine Urine Chloride Vancomycin Trough Coronavirus (PCR) Crossmatch 06/18/20 06/19/20 06/19/20 23:43 04:00 04:00 WBC 31.6 H RBC Hgb Hct RDW Lymph % (Auto) Lymph # (Auto) [place] # (Auto) Seg Neutrophils % Seg Neuts % (Manual) 98.0 H Lymphocytes % (Manual) 0.5 L Nucleated RBC % Seg Neutrophils # Seg Neutrophils # Man 31.0 H Lymphocytes # (Manual) 0.2 L Monocytes # (Manual) PT INR APTT D-Dimer Heparin Anti-Xa Level ABG pH POC ABG pCO2 POC ABG pO2 ABG pO2 ABG HCO3 ABG Hemoglobin ABG Oxyhemoglobin ABG Sodium ABG Potassium ABG Chloride ABG Glucose Carboxyhemoglobin Sodium Potassium Chloride Carbon Dioxide BUN 56 H Creatinine 1.6 H Glucose 176 H POC Glucose 149 H Lactic Acid Calcium 7.0 L Phosphorus Magnesium Ferritin Direct Bilirubin AST 244 H ALT 159 H Lactate Dehydrogenase Total Creatine Kinase C-Reactive Protein Total Protein 4.9 L D Albumin 2.5 L Triglycerides Arterial Blood Glucose Arterial Blood Ionized Calcium Urine Creatinine Urine Chloride Vancomycin Trough Coronavirus (PCR) Crossmatch 06/19/20 06/19/20 06/19/20 04:00 05:44 11:42 WBC RBC Hgb Hct RDW Lymph % (Auto) Lymph # (Auto) [place] # (Auto) Seg Neutrophils % Seg Neuts % (Manual) Lymphocytes % (Manual) Nucleated RBC % Seg Neutrophils # Seg Neutrophils # Man Lymphocytes # (Manual) Monocytes # (Manual) PT INR APTT D-Dimer Heparin Anti-Xa Level ABG pH 7.265 L POC ABG pCO2 51.8 H POC ABG pO2 65.1 L ABG pO2 ABG HCO3 ABG Hemoglobin ABG Oxyhemoglobin ABG Sodium ABG Potassium ABG Chloride ABG Glucose 184 H Carboxyhemoglobin Sodium Potassium Chloride Carbon Dioxide BUN Creatinine Glucose POC Glucose 156 H 191 H Lactic Acid Calcium Phosphorus Magnesium Ferritin Direct Bilirubin AST ALT Lactate Dehydrogenase Total Creatine Kinase C-Reactive Protein Total Protein Albumin Triglycerides Arterial Blood Glucose 184 H Arterial Blood Ionized Calcium 4.3 L Urine Creatinine Urine Chloride Vancomycin Trough Coronavirus (PCR) Crossmatch 06/19/20 06/19/20 06/19/20 12:30 17:16 18:36 WBC RBC Hgb Hct RDW Lymph % (Auto) Lymph # (Auto) [place] # (Auto) Seg Neutrophils % Seg Neuts % (Manual) Lymphocytes % (Manual) Nucleated RBC % Seg Neutrophils # Seg Neutrophils # Man Lymphocytes # (Manual) Monocytes # (Manual) PT 16.4 H INR 1.32 H APTT D-Dimer Heparin Anti-Xa Level ABG pH 7.088 L POC ABG pCO2 78.1 H POC ABG pO2 208.3 H ABG pO2 ABG HCO3 ABG Hemoglobin ABG Oxyhemoglobin 98.3 H ABG Sodium ABG Potassium 5.0 H ABG Chloride ABG Glucose 182 H Carboxyhemoglobin 0.4 L Sodium Potassium Chloride Carbon Dioxide BUN Creatinine Glucose POC Glucose 154 H Lactic Acid Calcium Phosphorus Magnesium Ferritin Direct Bilirubin AST ALT Lactate Dehydrogenase Total Creatine Kinase C-Reactive Protein Total Protein Albumin Triglycerides Arterial Blood Glucose 182 H Arterial Blood Ionized Calcium 4.3 L Urine Creatinine Urine Chloride Vancomycin Trough Coronavirus (PCR) Crossmatch 06/19/20 06/20/20 06/20/20 23:32 03:00 05:19 WBC RBC Hgb Hct RDW Lymph % (Auto) Lymph # (Auto) [place] # (Auto) Seg Neutrophils % Seg Neuts % (Manual) Lymphocytes % (Manual) Nucleated RBC % Seg Neutrophils # Seg Neutrophils # Man Lymphocytes # (Manual) Monocytes # (Manual) PT INR APTT D-Dimer Heparin Anti-Xa Level 0.77 H ABG pH POC ABG pCO2 POC ABG pO2 ABG pO2 ABG HCO3 ABG Hemoglobin ABG Oxyhemoglobin ABG Sodium ABG Potassium ABG Chloride ABG Glucose Carboxyhemoglobin Sodium Potassium Chloride Carbon Dioxide BUN Creatinine Glucose POC Glucose 201 H 190 H Lactic Acid Calcium Phosphorus Magnesium Ferritin Direct Bilirubin AST ALT Lactate Dehydrogenase Total Creatine Kinase C-Reactive Protein Total Protein Albumin Triglycerides Arterial Blood Glucose Arterial Blood Ionized Calcium Urine Creatinine Urine Chloride Vancomycin Trough Coronavirus (PCR) Crossmatch 06/20/20 06/20/20 06/20/20 08:25 08:25 11:36 WBC RBC Hgb Hct RDW Lymph % (Auto) Lymph # (Auto) [place] # (Auto) Seg Neutrophils % Seg Neuts % (Manual) Lymphocytes % (Manual) Nucleated RBC % Seg Neutrophils # Seg Neutrophils # Man Lymphocytes # (Manual) Monocytes # (Manual) PT INR APTT D-Dimer Heparin Anti-Xa Level ABG pH POC ABG pCO2 POC ABG pO2 ABG pO2 ABG HCO3 ABG Hemoglobin ABG Oxyhemoglobin ABG Sodium ABG Potassium ABG Chloride ABG Glucose Carboxyhemoglobin Sodium 135 L Potassium 5.4 H Chloride 109.2 H Carbon Dioxide 19 L BUN 68 H Creatinine 2.5 H D Glucose 201 H POC Glucose 184 H Lactic Acid Calcium 5.5 L* D Phosphorus Magnesium Ferritin Direct Bilirubin AST 123 H ALT 86 H Lactate Dehydrogenase Total Creatine Kinase C-Reactive Protein Total Protein 4.6 L Albumin 1.5 L Triglycerides Arterial Blood Glucose Arterial Blood Ionized Calcium Urine Creatinine Urine Chloride Vancomycin Trough 22.7 H Coronavirus (PCR) Crossmatch 06/20/20 06/20/20 06/20/20 11:40 17:28 20:00 WBC RBC Hgb Hct RDW Lymph % (Auto) Lymph # (Auto) [place] # (Auto) Seg Neutrophils % Seg Neuts % (Manual) Lymphocytes % (Manual) Nucleated RBC % Seg Neutrophils # Seg Neutrophils # Man Lymphocytes # (Manual) Monocytes # (Manual) PT INR APTT D-Dimer Heparin Anti-Xa Level 0.89 H ABG pH 7.099 L POC ABG pCO2 61.1 H POC ABG pO2 ABG pO2 ABG HCO3 ABG Hemoglobin ABG Oxyhemoglobin ABG Sodium ABG Potassium 5.0 H ABG Chloride 111.0 H ABG Glucose 200 H Carboxyhemoglobin 0.4 L Sodium Potassium Chloride Carbon Dioxide BUN Creatinine Glucose POC Glucose 165 H Lactic Acid Calcium Phosphorus Magnesium Ferritin Direct Bilirubin AST ALT Lactate Dehydrogenase Total Creatine Kinase C-Reactive Protein Total Protein Albumin Triglycerides Arterial Blood Glucose 200 H Arterial Blood Ionized Calcium 4.2 L Urine Creatinine Urine Chloride Vancomycin Trough Coronavirus (PCR) Crossmatch 06/20/20 06/21/20 06/21/20 23:29 05:00 05:20 WBC RBC Hgb Hct RDW Lymph % (Auto) Lymph # (Auto) [place] # (Auto) Seg Neutrophils % Seg Neuts % (Manual) Lymphocytes % (Manual) Nucleated RBC % Seg Neutrophils # Seg Neutrophils # Man Lymphocytes # (Manual) Monocytes # (Manual) PT INR APTT D-Dimer Heparin Anti-Xa Level ABG pH POC ABG pCO2 POC ABG pO2 ABG pO2 ABG HCO3 ABG Hemoglobin ABG Oxyhemoglobin ABG Sodium ABG Potassium ABG Chloride ABG Glucose Carboxyhemoglobin Sodium Potassium Chloride 112.0 H Carbon Dioxide 20 L BUN 92 H Creatinine 3.9 H D Glucose 214 H POC Glucose 145 H 191 H Lactic Acid Calcium 6.5 L D Phosphorus Magnesium Ferritin Direct Bilirubin AST 98 H ALT 84 H Lactate Dehydrogenase Total Creatine Kinase C-Reactive Protein Total Protein 4.6 L Albumin 2.1 L Triglycerides 180 H Arterial Blood Glucose Arterial Blood Ionized Calcium Urine Creatinine Urine Chloride Vancomycin Trough Coronavirus (PCR) Crossmatch 06/21/20 06/21/20 06/21/20 08:56 11:12 12:43 WBC RBC Hgb Hct RDW Lymph % (Auto) Lymph # (Auto) [place] # (Auto) Seg Neutrophils % Seg Neuts % (Manual) Lymphocytes % (Manual) Nucleated RBC % Seg Neutrophils # Seg Neutrophils # Man Lymphocytes # (Manual) Monocytes # (Manual) PT INR APTT D-Dimer Heparin Anti-Xa Level 0.28 L ABG pH 7.184 L POC ABG pCO2 48.3 H POC ABG pO2 172.1 H ABG pO2 ABG HCO3 ABG Hemoglobin ABG Oxyhemoglobin 98.7 H ABG Sodium ABG Potassium 4.9 H ABG Chloride 112.0 H ABG Glucose 196 H Carboxyhemoglobin 0.2 L Sodium Potassium Chloride Carbon Dioxide BUN Creatinine Glucose POC Glucose 177 H Lactic Acid Calcium Phosphorus Magnesium Ferritin Direct Bilirubin AST ALT Lactate Dehydrogenase Total Creatine Kinase C-Reactive Protein Total Protein Albumin Triglycerides Arterial Blood Glucose 196 H Arterial Blood Ionized Calcium 4.1 L Urine Creatinine Urine Chloride Vancomycin Trough Coronavirus (PCR) Crossmatch 06/21/20 06/21/20 06/22/20 16:31 Unknown 00:12 WBC RBC Hgb Hct RDW Lymph % (Auto) Lymph # (Auto) [place] # (Auto) Seg Neutrophils % Seg Neuts % (Manual) Lymphocytes % (Manual) Nucleated RBC % Seg Neutrophils # Seg Neutrophils # Man Lymphocytes # (Manual) Monocytes # (Manual) PT INR APTT D-Dimer Heparin Anti-Xa Level 0.78 H ABG pH POC ABG pCO2 POC ABG pO2 ABG pO2 ABG HCO3 ABG Hemoglobin ABG Oxyhemoglobin ABG Sodium ABG Potassium ABG Chloride ABG Glucose Carboxyhemoglobin Sodium Potassium Chloride Carbon Dioxide BUN Creatinine Glucose POC Glucose 150 H 173 H Lactic Acid Calcium Phosphorus Magnesium Ferritin Direct Bilirubin AST ALT Lactate Dehydrogenase Total Creatine Kinase C-Reactive Protein Total Protein Albumin Triglycerides Arterial Blood Glucose Arterial Blood Ionized Calcium Urine Creatinine Urine Chloride Vancomycin Trough Coronavirus (PCR) Crossmatch 06/22/20 06/22/20 06/22/20 04:00 05:04 05:30 WBC 33.9 H RBC Hgb 11.7 L Hct 35.2 L RDW 15.8 H Lymph % (Auto) Lymph # (Auto) [place] # (Auto) Seg Neutrophils % Seg Neuts % (Manual) 93.0 H Lymphocytes % (Manual) 5.0 L Nucleated RBC % Seg Neutrophils # Seg Neutrophils # Man 31.5 H Lymphocytes # (Manual) Monocytes # (Manual) PT INR APTT D-Dimer Heparin Anti-Xa Level ABG pH 7.169 L POC ABG pCO2 POC ABG pO2 ABG pO2 ABG HCO3 ABG Hemoglobin ABG Oxyhemoglobin ABG Sodium ABG Potassium 5.1 H ABG Chloride 112.0 H ABG Glucose 186 H Carboxyhemoglobin 0.3 L Sodium Potassium Chloride Carbon Dioxide BUN Creatinine Glucose POC Glucose 161 H Lactic Acid Calcium Phosphorus Magnesium Ferritin Direct Bilirubin AST ALT Lactate Dehydrogenase Total Creatine Kinase C-Reactive Protein Total Protein Albumin Triglycerides Arterial Blood Glucose 186 H Arterial Blood Ionized Calcium 4.1 L Urine Creatinine Urine Chloride Vancomycin Trough Coronavirus (PCR) Crossmatch 06/22/20 06/22/20 06/22/20 05:30 11:39 13:27 WBC RBC Hgb Hct RDW Lymph % (Auto) Lymph # (Auto) [place] # (Auto) Seg Neutrophils % Seg Neuts % (Manual) Lymphocytes % (Manual) Nucleated RBC % Seg Neutrophils # Seg Neutrophils # Man Lymphocytes # (Manual) Monocytes # (Manual) PT INR APTT D-Dimer Heparin Anti-Xa Level ABG pH POC ABG pCO2 POC ABG pO2 ABG pO2 ABG HCO3 ABG Hemoglobin ABG Oxyhemoglobin ABG Sodium ABG Potassium ABG Chloride ABG Glucose Carboxyhemoglobin Sodium Potassium 5.7 H Chloride 111.3 H Carbon Dioxide 18 L BUN 112 H Creatinine 5.0 H Glucose 173 H POC Glucose 172 H 176 H Lactic Acid Calcium 6.7 L Phosphorus Magnesium Ferritin Direct Bilirubin AST ALT Lactate Dehydrogenase Total Creatine Kinase C-Reactive Protein Total Protein Albumin Triglycerides Arterial Blood Glucose Arterial Blood Ionized Calcium Urine Creatinine Urine Chloride Vancomycin Trough Coronavirus (PCR) Crossmatch 06/22/20 06/22/20 06/22/20 14:37 17:00 17:40 WBC RBC Hgb Hct RDW Lymph % (Auto) Lymph # (Auto) [place] # (Auto) Seg Neutrophils % Seg Neuts % (Manual) Lymphocytes % (Manual) Nucleated RBC % Seg Neutrophils # Seg Neutrophils # Man Lymphocytes # (Manual) Monocytes # (Manual) PT INR APTT D-Dimer Heparin Anti-Xa Level 1.32 H ABG pH POC ABG pCO2 POC ABG pO2 ABG pO2 ABG HCO3 ABG Hemoglobin ABG Oxyhemoglobin ABG Sodium ABG Potassium ABG Chloride ABG Glucose Carboxyhemoglobin Sodium Potassium Chloride Carbon Dioxide BUN Creatinine Glucose POC Glucose 171 H Lactic Acid Calcium Phosphorus Magnesium Ferritin Direct Bilirubin AST ALT Lactate Dehydrogenase Total Creatine Kinase C-Reactive Protein 5.30 H Total Protein Albumin Triglycerides Arterial Blood Glucose Arterial Blood Ionized Calcium Urine Creatinine Urine Chloride Vancomycin Trough Coronavirus (PCR) Crossmatch 06/22/20 06/23/20 06/23/20 23:36 02:13 02:41 WBC RBC Hgb Hct RDW Lymph % (Auto) Lymph # (Auto) [place] # (Auto) Seg Neutrophils % Seg Neuts % (Manual) Lymphocytes % (Manual) Nucleated RBC % Seg Neutrophils # Seg Neutrophils # Man Lymphocytes # (Manual) Monocytes # (Manual) PT INR APTT D-Dimer Heparin Anti-Xa Level 0.21 L ABG pH 7.318 L POC ABG pCO2 POC ABG pO2 157.5 H ABG pO2 ABG HCO3 ABG Hemoglobin ABG Oxyhemoglobin ABG Sodium 135.6 L ABG Potassium 4.6 H ABG Chloride 110.0 H ABG Glucose 169 H Carboxyhemoglobin Sodium Potassium Chloride Carbon Dioxide BUN Creatinine Glucose POC Glucose 155 H Lactic Acid Calcium Phosphorus Magnesium Ferritin Direct Bilirubin AST ALT Lactate Dehydrogenase Total Creatine Kinase C-Reactive Protein Total Protein Albumin Triglycerides Arterial Blood Glucose 169 H Arterial Blood Ionized Calcium Urine Creatinine Urine Chloride Vancomycin Trough Coronavirus (PCR) Crossmatch 06/23/20 06/23/20 06/23/20 04:00 04:00 05:24 WBC 27.4 H RBC Hgb 11.3 L Hct 33.8 L RDW Lymph % (Auto) Lymph # (Auto) [place] # (Auto) Seg Neutrophils % Seg Neuts % (Manual) 93.0 H Lymphocytes % (Manual) 1.0 L Nucleated RBC % 1.0 H Seg Neutrophils # Seg Neutrophils # Man 25.5 H Lymphocytes # (Manual) 0.3 L Monocytes # (Manual) 1.1 H PT INR APTT D-Dimer Heparin Anti-Xa Level ABG pH POC ABG pCO2 POC ABG pO2 ABG pO2 ABG HCO3 ABG Hemoglobin ABG Oxyhemoglobin ABG Sodium ABG Potassium ABG Chloride ABG Glucose Carboxyhemoglobin Sodium Potassium Chloride 107.6 H Carbon Dioxide 20 L BUN 100 H Creatinine 4.7 H Glucose 168 H POC Glucose 151 H Lactic Acid Calcium Phosphorus Magnesium Ferritin Direct Bilirubin AST ALT Lactate Dehydrogenase Total Creatine Kinase C-Reactive Protein Total Protein Albumin Triglycerides Arterial Blood Glucose Arterial Blood Ionized Calcium Urine Creatinine Urine Chloride Vancomycin Trough Coronavirus (PCR) Crossmatch 06/23/20 06/23/20 06/23/20 11:30 17:18 23:50 WBC RBC Hgb Hct RDW Lymph % (Auto) Lymph # (Auto) [place] # (Auto) Seg Neutrophils % Seg Neuts % (Manual) Lymphocytes % (Manual) Nucleated RBC % Seg Neutrophils # Seg Neutrophils # Man Lymphocytes # (Manual) Monocytes # (Manual) PT INR APTT D-Dimer Heparin Anti-Xa Level ABG pH POC ABG pCO2 POC ABG pO2 ABG pO2 ABG HCO3 ABG Hemoglobin ABG Oxyhemoglobin ABG Sodium ABG Potassium ABG Chloride ABG Glucose Carboxyhemoglobin Sodium Potassium Chloride Carbon Dioxide BUN Creatinine Glucose POC Glucose 157 H 156 H 162 H Lactic Acid Calcium Phosphorus Magnesium Ferritin Direct Bilirubin AST ALT Lactate Dehydrogenase Total Creatine Kinase C-Reactive Protein Total Protein Albumin Triglycerides Arterial Blood Glucose Arterial Blood Ionized Calcium Urine Creatinine Urine Chloride Vancomycin Trough Coronavirus (PCR) Crossmatch 06/24/20 06/24/20 06/24/20 04:41 05:57 06:30 WBC 34.3 H RBC Hgb 10.9 L Hct 32.6 L RDW Lymph % (Auto) 2.0 L Lymph # (Auto) 0.7 L [place] # (Auto) 1.2 H Seg Neutrophils % Seg Neuts % (Manual) 96.0 H Lymphocytes % (Manual) 3.0 L Nucleated RBC % Seg Neutrophils # 32.3 H Seg Neutrophils # Man 32.9 H Lymphocytes # (Manual) 1.0 L Monocytes # (Manual) PT INR APTT D-Dimer Heparin Anti-Xa Level ABG pH POC ABG pCO2 POC ABG pO2 71.1 L ABG pO2 ABG HCO3 ABG Hemoglobin ABG Oxyhemoglobin 92.4 L ABG Sodium 115.6 L ABG Potassium ABG Chloride ABG Glucose 159 H Carboxyhemoglobin Sodium Potassium Chloride Carbon Dioxide BUN Creatinine Glucose POC Glucose 143 H Lactic Acid Calcium Phosphorus Magnesium Ferritin Direct Bilirubin AST ALT Lactate Dehydrogenase Total Creatine Kinase C-Reactive Protein Total Protein Albumin Triglycerides Arterial Blood Glucose 159 H Arterial Blood Ionized Calcium 4.2 L Urine Creatinine Urine Chloride Vancomycin Trough Coronavirus (PCR) Crossmatch 06/24/20 06/24/20 06/24/20 07:03 09:37 11:56 WBC RBC Hgb Hct RDW Lymph % (Auto) Lymph # (Auto) [place] # (Auto) Seg Neutrophils % Seg Neuts % (Manual) Lymphocytes % (Manual) Nucleated RBC % Seg Neutrophils # Seg Neutrophils # Man Lymphocytes # (Manual) Monocytes # (Manual) PT INR APTT D-Dimer Heparin Anti-Xa Level 0.26 L ABG pH POC ABG pCO2 POC ABG pO2 ABG pO2 ABG HCO3 ABG Hemoglobin ABG Oxyhemoglobin ABG Sodium ABG Potassium ABG Chloride ABG Glucose Carboxyhemoglobin Sodium Potassium 5.1 H Chloride Carbon Dioxide BUN 103 H Creatinine 5.0 H Glucose 163 H POC Glucose 149 H Lactic Acid Calcium 7.6 L Phosphorus Magnesium Ferritin Direct Bilirubin AST ALT Lactate Dehydrogenase Total Creatine Kinase C-Reactive Protein Total Protein Albumin Triglycerides Arterial Blood Glucose Arterial Blood Ionized Calcium Urine Creatinine Urine Chloride Vancomycin Trough Coronavirus (PCR) Crossmatch 06/24/20 06/25/20 06/25/20 18:09 01:05 03:00 WBC RBC Hgb 10.6 L Hct 32.1 L RDW Lymph % (Auto) Lymph # (Auto) [place] # (Auto) Seg Neutrophils % Seg Neuts % (Manual) Lymphocytes % (Manual) Nucleated RBC % Seg Neutrophils # Seg Neutrophils # Man Lymphocytes # (Manual) Monocytes # (Manual) PT INR APTT D-Dimer Heparin Anti-Xa Level ABG pH POC ABG pCO2 POC ABG pO2 ABG pO2 ABG HCO3 ABG Hemoglobin ABG Oxyhemoglobin ABG Sodium ABG Potassium ABG Chloride ABG Glucose Carboxyhemoglobin Sodium Potassium Chloride Carbon Dioxide BUN Creatinine Glucose POC Glucose 141 H 137 H Lactic Acid Calcium Phosphorus Magnesium Ferritin Direct Bilirubin AST ALT Lactate Dehydrogenase Total Creatine Kinase C-Reactive Protein Total Protein Albumin Triglycerides Arterial Blood Glucose Arterial Blood Ionized Calcium Urine Creatinine Urine Chloride Vancomycin Trough Coronavirus (PCR) Crossmatch 06/25/20 06/25/20 06/25/20 03:48 05:17 12:08 WBC RBC Hgb Hct RDW Lymph % (Auto) Lymph # (Auto) [place] # (Auto) Seg Neutrophils % Seg Neuts % (Manual) Lymphocytes % (Manual) Nucleated RBC % Seg Neutrophils # Seg Neutrophils # Man Lymphocytes # (Manual) Monocytes # (Manual) PT INR APTT D-Dimer Heparin Anti-Xa Level ABG pH POC ABG pCO2 29.4 L POC ABG pO2 67.1 L ABG pO2 ABG HCO3 ABG Hemoglobin 11.5 L ABG Oxyhemoglobin ABG Sodium 124.1 L ABG Potassium 4.6 H ABG Chloride ABG Glucose 159 H Carboxyhemoglobin Sodium Potassium Chloride Carbon Dioxide BUN Creatinine Glucose POC Glucose 149 H 150 H Lactic Acid Calcium Phosphorus Magnesium Ferritin Direct Bilirubin AST ALT Lactate Dehydrogenase Total Creatine Kinase C-Reactive Protein Total Protein Albumin Triglycerides Arterial Blood Glucose 159 H Arterial Blood Ionized Calcium 4.2 L Urine Creatinine Urine Chloride Vancomycin Trough Coronavirus (PCR) Crossmatch 06/25/20 06/25/20 06/25/20 16:27 16:35 17:27 WBC RBC Hgb Hct RDW Lymph % (Auto) Lymph # (Auto) [place] # (Auto) Seg Neutrophils % Seg Neuts % (Manual) Lymphocytes % (Manual) Nucleated RBC % Seg Neutrophils # Seg Neutrophils # Man Lymphocytes # (Manual) Monocytes # (Manual) PT INR APTT D-Dimer Heparin Anti-Xa Level < 0.10 L ABG pH POC ABG pCO2 POC ABG pO2 ABG pO2 ABG HCO3 ABG Hemoglobin ABG Oxyhemoglobin ABG Sodium ABG Potassium ABG Chloride ABG Glucose Carboxyhemoglobin Sodium Potassium Chloride Carbon Dioxide BUN Creatinine Glucose POC Glucose 143 H 156 H Lactic Acid Calcium Phosphorus Magnesium Ferritin Direct Bilirubin AST ALT Lactate Dehydrogenase Total Creatine Kinase C-Reactive Protein Total Protein Albumin Triglycerides Arterial Blood Glucose Arterial Blood Ionized Calcium Urine Creatinine Urine Chloride Vancomycin Trough Coronavirus (PCR) Crossmatch 06/25/20 06/25/20 06/25/20 20:00 20:55 23:10 WBC 32.7 H RBC 3.06 L Hgb 9.0 L 9.5 L Hct 26.7 L 28.6 L RDW Lymph % (Auto) Lymph # (Auto) [place] # (Auto) Seg Neutrophils % Seg Neuts % (Manual) Lymphocytes % (Manual) 2.0 L Nucleated RBC % Seg Neutrophils # Seg Neutrophils # Man 30.7 H Lymphocytes # (Manual) 0.7 L Monocytes # (Manual) 1.3 H PT 17.7 H INR 1.47 H APTT 65.8 H* D-Dimer Heparin Anti-Xa Level ABG pH POC ABG pCO2 POC ABG pO2 ABG pO2 ABG HCO3 ABG Hemoglobin ABG Oxyhemoglobin ABG Sodium ABG Potassium ABG Chloride ABG Glucose Carboxyhemoglobin Sodium Potassium Chloride Carbon Dioxide BUN Creatinine Glucose POC Glucose Lactic Acid Calcium Phosphorus Magnesium Ferritin Direct Bilirubin AST ALT Lactate Dehydrogenase Total Creatine Kinase C-Reactive Protein Total Protein Albumin Triglycerides Arterial Blood Glucose Arterial Blood Ionized Calcium Urine Creatinine Urine Chloride Vancomycin Trough Coronavirus (PCR) Crossmatch 06/25/20 06/26/20 06/26/20 23:14 01:30 03:25 WBC RBC Hgb Hct RDW Lymph % (Auto) Lymph # (Auto) [place] # (Auto) Seg Neutrophils % Seg Neuts % (Manual) Lymphocytes % (Manual) Nucleated RBC % Seg Neutrophils # Seg Neutrophils # Man Lymphocytes # (Manual) Monocytes # (Manual) PT INR APTT D-Dimer Heparin Anti-Xa Level < 0.10 L ABG pH POC ABG pCO2 POC ABG pO2 ABG pO2 ABG HCO3 ABG Hemoglobin 11.8 L ABG Oxyhemoglobin ABG Sodium 127.1 L ABG Potassium 5.4 H ABG Chloride ABG Glucose 155 H Carboxyhemoglobin 0.3 L Sodium Potassium Chloride Carbon Dioxide BUN Creatinine Glucose POC Glucose 148 H Lactic Acid Calcium Phosphorus Magnesium Ferritin Direct Bilirubin AST ALT Lactate Dehydrogenase Total Creatine Kinase C-Reactive Protein Total Protein Albumin Triglycerides Arterial Blood Glucose 155 H Arterial Blood Ionized Calcium 4.2 L Urine Creatinine Urine Chloride Vancomycin Trough Coronavirus (PCR) Crossmatch 06/26/20 06/26/20 06/26/20 03:59 05:14 05:47 WBC 36.5 H RBC 3.26 L Hgb 9.7 L Hct 28.2 L RDW Lymph % (Auto) Lymph # (Auto) [place] # (Auto) Seg Neutrophils % Seg Neuts % (Manual) 92.0 H Lymphocytes % (Manual) 4.0 L Nucleated RBC % Seg Neutrophils # Seg Neutrophils # Man 33.6 H Lymphocytes # (Manual) Monocytes # (Manual) PT INR APTT D-Dimer Heparin Anti-Xa Level ABG pH POC ABG pCO2 POC ABG pO2 ABG pO2 ABG HCO3 ABG Hemoglobin ABG Oxyhemoglobin ABG Sodium ABG Potassium ABG Chloride ABG Glucose Carboxyhemoglobin Sodium Potassium 5.9 H Chloride Carbon Dioxide 20 L BUN 144 H Creatinine 6.4 H Glucose 149 H POC Glucose 128 H Lactic Acid Calcium 7.6 L Phosphorus Magnesium Ferritin Direct Bilirubin AST ALT Lactate Dehydrogenase Total Creatine Kinase C-Reactive Protein Total Protein Albumin Triglycerides Arterial Blood Glucose Arterial Blood Ionized Calcium Urine Creatinine Urine Chloride Vancomycin Trough Coronavirus (PCR) Crossmatch 06/26/20 06/26/20 06/26/20 05:47 12:47 17:42 WBC RBC Hgb Hct RDW Lymph % (Auto) Lymph # (Auto) [place] # (Auto) Seg Neutrophils % Seg Neuts % (Manual) Lymphocytes % (Manual) Nucleated RBC % Seg Neutrophils # Seg Neutrophils # Man Lymphocytes # (Manual) Monocytes # (Manual) PT 17.4 H INR 1.44 H APTT D-Dimer Heparin Anti-Xa Level ABG pH POC ABG pCO2 POC ABG pO2 ABG pO2 ABG HCO3 ABG Hemoglobin ABG Oxyhemoglobin ABG Sodium ABG Potassium ABG Chloride ABG Glucose Carboxyhemoglobin Sodium Potassium Chloride Carbon Dioxide BUN Creatinine Glucose POC Glucose 124 H 127 H Lactic Acid Calcium Phosphorus Magnesium Ferritin Direct Bilirubin AST ALT Lactate Dehydrogenase Total Creatine Kinase C-Reactive Protein Total Protein Albumin Triglycerides Arterial Blood Glucose Arterial Blood Ionized Calcium Urine Creatinine Urine Chloride Vancomycin Trough Coronavirus (PCR) Crossmatch 06/26/20 06/27/20 06/27/20 23:30 03:32 04:00 WBC RBC Hgb 8.7 L Hct 26.4 L RDW Lymph % (Auto) Lymph # (Auto) [place] # (Auto) Seg Neutrophils % Seg Neuts % (Manual) Lymphocytes % (Manual) Nucleated RBC % Seg Neutrophils # Seg Neutrophils # Man Lymphocytes # (Manual) Monocytes # (Manual) PT INR APTT D-Dimer Heparin Anti-Xa Level ABG pH 7.298 L POC ABG pCO2 POC ABG pO2 ABG pO2 ABG HCO3 ABG Hemoglobin 9.6 L ABG Oxyhemoglobin ABG Sodium 124.4 L ABG Potassium 6.6 H ABG Chloride ABG Glucose 136 H Carboxyhemoglobin Sodium Potassium Chloride Carbon Dioxide BUN Creatinine Glucose POC Glucose 123 H Lactic Acid Calcium Phosphorus Magnesium Ferritin Direct Bilirubin AST ALT Lactate Dehydrogenase Total Creatine Kinase C-Reactive Protein Total Protein Albumin Triglycerides Arterial Blood Glucose 136 H Arterial Blood Ionized Calcium 4.1 L Urine Creatinine Urine Chloride Vancomycin Trough Coronavirus (PCR) Crossmatch 06/27/20 06/27/20 06/27/20 05:26 10:14 11:58 WBC RBC Hgb Hct RDW Lymph % (Auto) Lymph # (Auto) [place] # (Auto) Seg Neutrophils % Seg Neuts % (Manual) Lymphocytes % (Manual) Nucleated RBC % Seg Neutrophils # Seg Neutrophils # Man Lymphocytes # (Manual) Monocytes # (Manual) PT INR APTT D-Dimer Heparin Anti-Xa Level ABG pH POC ABG pCO2 POC ABG pO2 ABG pO2 ABG HCO3 ABG Hemoglobin ABG Oxyhemoglobin ABG Sodium ABG Potassium ABG Chloride ABG Glucose Carboxyhemoglobin Sodium 136 L Potassium 7.0 H* Chloride 97.8 L Carbon Dioxide BUN 172 H Creatinine 7.4 H Glucose 129 H POC Glucose 124 H 115 H Lactic Acid Calcium 7.6 L Phosphorus Magnesium Ferritin Direct Bilirubin AST ALT Lactate Dehydrogenase Total Creatine Kinase C-Reactive Protein Total Protein Albumin Triglycerides Arterial Blood Glucose Arterial Blood Ionized Calcium Urine Creatinine Urine Chloride Vancomycin Trough Coronavirus (PCR) Crossmatch 06/27/20 06/27/20 06/27/20 17:32 18:30 23:24 WBC RBC Hgb Hct RDW Lymph % (Auto) Lymph # (Auto) [place] # (Auto) Seg Neutrophils % Seg Neuts % (Manual) Lymphocytes % (Manual) Nucleated RBC % Seg Neutrophils # Seg Neutrophils # Man Lymphocytes # (Manual) Monocytes # (Manual) PT INR APTT D-Dimer Heparin Anti-Xa Level ABG pH POC ABG pCO2 POC ABG pO2 ABG pO2 ABG HCO3 ABG Hemoglobin ABG Oxyhemoglobin ABG Sodium ABG Potassium ABG Chloride ABG Glucose Carboxyhemoglobin Sodium Potassium 7.3 H* Chloride Carbon Dioxide BUN Creatinine Glucose POC Glucose 122 H 116 H Lactic Acid Calcium Phosphorus Magnesium Ferritin Direct Bilirubin AST ALT Lactate Dehydrogenase Total Creatine Kinase C-Reactive Protein Total Protein Albumin Triglycerides Arterial Blood Glucose Arterial Blood Ionized Calcium Urine Creatinine Urine Chloride Vancomycin Trough Coronavirus (PCR) Crossmatch 06/28/20 06/28/20 06/28/20 00:00 02:16 05:37 WBC RBC Hgb Hct RDW Lymph % (Auto) Lymph # (Auto) [place] # (Auto) Seg Neutrophils % Seg Neuts % (Manual) Lymphocytes % (Manual) Nucleated RBC % Seg Neutrophils # Seg Neutrophils # Man Lymphocytes # (Manual) Monocytes # (Manual) PT INR APTT D-Dimer Heparin Anti-Xa Level ABG pH POC ABG pCO2 POC ABG pO2 79.0 L ABG pO2 ABG HCO3 ABG Hemoglobin 11.7 L ABG Oxyhemoglobin ABG Sodium 128.1 L ABG Potassium 6.6 H ABG Chloride ABG Glucose 124 H Carboxyhemoglobin Sodium Potassium 7.3 H* Chloride Carbon Dioxide BUN Creatinine Glucose POC Glucose 115 H Lactic Acid Calcium Phosphorus Magnesium Ferritin Direct Bilirubin AST ALT Lactate Dehydrogenase Total Creatine Kinase C-Reactive Protein Total Protein Albumin Triglycerides Arterial Blood Glucose 124 H Arterial Blood Ionized Calcium 4.2 L Urine Creatinine Urine Chloride Vancomycin Trough Coronavirus (PCR) Crossmatch 06/28/20 06/28/20 06/28/20 10:03 10:03 11:51 WBC 33.6 H RBC 3.03 L Hgb 8.9 L Hct 27.0 L RDW Lymph % (Auto) Lymph # (Auto) [place] # (Auto) Seg Neutrophils % Seg Neuts % (Manual) Lymphocytes % (Manual) Nucleated RBC % Seg Neutrophils # Seg Neutrophils # Man Lymphocytes # (Manual) Monocytes # (Manual) PT INR APTT D-Dimer Heparin Anti-Xa Level ABG pH POC ABG pCO2 POC ABG pO2 ABG pO2 ABG HCO3 ABG Hemoglobin ABG Oxyhemoglobin ABG Sodium ABG Potassium ABG Chloride ABG Glucose Carboxyhemoglobin Sodium 136 L Potassium 6.5 H* Chloride Carbon Dioxide 20 L BUN 129 H Creatinine 5.8 H Glucose 113 H POC Glucose 107 H Lactic Acid Calcium 7.6 L Phosphorus Magnesium Ferritin Direct Bilirubin AST ALT Lactate Dehydrogenase Total Creatine Kinase C-Reactive Protein Total Protein Albumin Triglycerides Arterial Blood Glucose Arterial Blood Ionized Calcium Urine Creatinine Urine Chloride Vancomycin Trough Coronavirus (PCR) Crossmatch 06/28/20 06/28/20 06/29/20 17:45 Unknown 03:15 WBC RBC Hgb Hct RDW Lymph % (Auto) Lymph # (Auto) [place] # (Auto) Seg Neutrophils % Seg Neuts % (Manual) Lymphocytes % (Manual) Nucleated RBC % Seg Neutrophils # Seg Neutrophils # Man Lymphocytes # (Manual) Monocytes # (Manual) PT INR APTT D-Dimer Heparin Anti-Xa Level ABG pH POC ABG pCO2 POC ABG pO2 ABG pO2 ABG HCO3 ABG Hemoglobin 7.8 L ABG Oxyhemoglobin ABG Sodium 127.4 L ABG Potassium 5.5 H ABG Chloride 97.0 L ABG Glucose 96 H Carboxyhemoglobin Sodium Potassium 5.4 H Chloride Carbon Dioxide BUN Creatinine Glucose POC Glucose 117 H Lactic Acid Calcium Phosphorus Magnesium Ferritin Direct Bilirubin AST ALT Lactate Dehydrogenase Total Creatine Kinase C-Reactive Protein Total Protein Albumin Triglycerides Arterial Blood Glucose 96 H Arterial Blood Ionized Calcium 4.0 L Urine Creatinine Urine Chloride Vancomycin Trough Coronavirus (PCR) Crossmatch 06/29/20 06/29/20 06/29/20 03:45 Unknown Unknown WBC RBC Hgb Hct RDW Lymph % (Auto) Lymph # (Auto) [place] # (Auto) Seg Neutrophils % Seg Neuts % (Manual) Lymphocytes % (Manual) Nucleated RBC % Seg Neutrophils # Seg Neutrophils # Man Lymphocytes # (Manual) Monocytes # (Manual) PT INR APTT D-Dimer Heparin Anti-Xa Level ABG pH POC ABG pCO2 POC ABG pO2 ABG pO2 ABG HCO3 ABG Hemoglobin ABG Oxyhemoglobin ABG Sodium ABG Potassium ABG Chloride ABG Glucose Carboxyhemoglobin Sodium 135 L Potassium 6.0 H 6.1 H* Chloride 94.8 L Carbon Dioxide BUN 109 H 114 H Creatinine 5.5 H Glucose POC Glucose Lactic Acid Calcium 7.4 L Phosphorus Magnesium Ferritin Direct Bilirubin AST 47 H ALT Lactate Dehydrogenase Total Creatine Kinase C-Reactive Protein Total Protein 4.9 L Albumin 2.2 L Triglycerides Arterial Blood Glucose Arterial Blood Ionized Calcium Urine Creatinine Urine Chloride Vancomycin Trough Coronavirus (PCR) Crossmatch 06/29/20 06/29/20 06/30/20 Unknown Unknown 03:32 WBC 20.7 H RBC 2.57 L Hgb 7.6 L Hct 23.0 L RDW Lymph % (Auto) Lymph # (Auto) [place] # (Auto) Seg Neutrophils % Seg Neuts % (Manual) Lymphocytes % (Manual) Nucleated RBC % Seg Neutrophils # Seg Neutrophils # Man Lymphocytes # (Manual) Monocytes # (Manual) PT INR APTT D-Dimer Heparin Anti-Xa Level ABG pH POC ABG pCO2 POC ABG pO2 ABG pO2 ABG HCO3 ABG Hemoglobin 11.4 L ABG Oxyhemoglobin ABG Sodium 130.1 L ABG Potassium 5.0 H ABG Chloride ABG Glucose Carboxyhemoglobin Sodium Potassium Chloride Carbon Dioxide BUN Creatinine Glucose POC Glucose Lactic Acid Calcium Phosphorus Magnesium Ferritin Direct Bilirubin AST ALT Lactate Dehydrogenase Total Creatine Kinase 618 H C-Reactive Protein Total Protein Albumin Triglycerides Arterial Blood Glucose Arterial Blood Ionized Calcium 3.9 L Urine Creatinine Urine Chloride Vancomycin Trough Coronavirus (PCR) Crossmatch 06/30/20 06/30/20 06/30/20 03:50 03:50 11:39 WBC 13.1 H RBC Hgb Hct RDW Lymph % (Auto) Lymph # (Auto) [place] # (Auto) Seg Neutrophils % Seg Neuts % (Manual) 95.0 H Lymphocytes % (Manual) 3.0 L Nucleated RBC % Seg Neutrophils # Seg Neutrophils # Man 12.4 H Lymphocytes # (Manual) 0.4 L Monocytes # (Manual) PT INR APTT D-Dimer Heparin Anti-Xa Level ABG pH POC ABG pCO2 POC ABG pO2 ABG pO2 ABG HCO3 ABG Hemoglobin ABG Oxyhemoglobin ABG Sodium ABG Potassium ABG Chloride ABG Glucose Carboxyhemoglobin Sodium 135 L Potassium 5.4 H D Chloride 93.6 L Carbon Dioxide BUN 85 H Creatinine 4.6 H Glucose POC Glucose 111 H Lactic Acid Calcium 7.1 L Phosphorus 9.40 H Magnesium Ferritin Direct Bilirubin AST ALT Lactate Dehydrogenase Total Creatine Kinase C-Reactive Protein Total Protein Albumin Triglycerides Arterial Blood Glucose Arterial Blood Ionized Calcium Urine Creatinine Urine Chloride Vancomycin Trough Coronavirus (PCR) Crossmatch 06/30/20 06/30/20 07/01/20 13:12 Unknown 03:19 WBC RBC Hgb 7.8 L D Hct 23.2 L D RDW Lymph % (Auto) Lymph # (Auto) [place] # (Auto) Seg Neutrophils % Seg Neuts % (Manual) Lymphocytes % (Manual) Nucleated RBC % Seg Neutrophils # Seg Neutrophils # Man Lymphocytes # (Manual) Monocytes # (Manual) PT INR APTT D-Dimer Heparin Anti-Xa Level ABG pH 7.461 H POC ABG pCO2 POC ABG pO2 77.2 L ABG pO2 ABG HCO3 ABG Hemoglobin 6.9 L ABG Oxyhemoglobin ABG Sodium 128.5 L ABG Potassium ABG Chloride 97.0 L ABG Glucose Carboxyhemoglobin Sodium Potassium Chloride Carbon Dioxide BUN Creatinine Glucose POC Glucose Lactic Acid Calcium Phosphorus Magnesium Ferritin Direct Bilirubin AST ALT Lactate Dehydrogenase Total Creatine Kinase C-Reactive Protein Total Protein Albumin Triglycerides Arterial Blood Glucose Arterial Blood Ionized Calcium 3.7 L Urine Creatinine Urine Chloride Vancomycin Trough Coronavirus (PCR) Positive A Crossmatch 07/01/20 07/01/20 07/01/20 06:00 06:00 11:04 WBC 16.7 H RBC 2.16 L Hgb 6.4 L Hct 19.2 L* RDW Lymph % (Auto) Lymph # (Auto) [place] # (Auto) Seg Neutrophils % Seg Neuts % (Manual) Lymphocytes % (Manual) Nucleated RBC % Seg Neutrophils # Seg Neutrophils # Man Lymphocytes # (Manual) Monocytes # (Manual) PT INR APTT D-Dimer Heparin Anti-Xa Level ABG pH POC ABG pCO2 POC ABG pO2 ABG pO2 ABG HCO3 ABG Hemoglobin ABG Oxyhemoglobin ABG Sodium ABG Potassium ABG Chloride ABG Glucose Carboxyhemoglobin Sodium 136 L Potassium Chloride 95.8 L Carbon Dioxide BUN 72 H Creatinine 4.3 H Glucose POC Glucose Lactic Acid Calcium 6.7 L Phosphorus Magnesium Ferritin Direct Bilirubin AST ALT Lactate Dehydrogenase Total Creatine Kinase C-Reactive Protein Total Protein Albumin Triglycerides 250 H Arterial Blood Glucose Arterial Blood Ionized Calcium Urine Creatinine Urine Chloride Vancomycin Trough Coronavirus (PCR) Crossmatch See Detail 07/02/20 07/02/20 07/02/20 04:44 06:00 11:33 WBC 14.6 H RBC 2.47 L Hgb 7.4 L Hct 21.8 L RDW Lymph % (Auto) Lymph # (Auto) [place] # (Auto) Seg Neutrophils % Seg Neuts % (Manual) Lymphocytes % (Manual) Nucleated RBC % Seg Neutrophils # Seg Neutrophils # Man Lymphocytes # (Manual) Monocytes # (Manual) PT INR APTT D-Dimer Heparin Anti-Xa Level ABG pH 7.457 H POC ABG pCO2 POC ABG pO2 79.4 L ABG pO2 ABG HCO3 ABG Hemoglobin 8.5 L ABG Oxyhemoglobin ABG Sodium 128.4 L ABG Potassium ABG Chloride 97.0 L ABG Glucose 100 H Carboxyhemoglobin Sodium 133 L Potassium 5.2 H Chloride 93.3 L Carbon Dioxide BUN 66 H Creatinine 4.1 H Glucose 102 H POC Glucose Lactic Acid Calcium 7.2 L Phosphorus Magnesium Ferritin Direct Bilirubin AST ALT Lactate Dehydrogenase Total Creatine Kinase C-Reactive Protein Total Protein Albumin Triglycerides Arterial Blood Glucose 100 H Arterial Blood Ionized Calcium 3.9 L Urine Creatinine Urine Chloride Vancomycin Trough Coronavirus (PCR) Crossmatch 07/02/20 07/03/20 07/03/20 11:33 03:54 09:15 WBC 16.6 H RBC 2.44 L Hgb 7.3 L Hct 21.4 L RDW Lymph % (Auto) Lymph # (Auto) [place] # (Auto) Seg Neutrophils % Seg Neuts % (Manual) Lymphocytes % (Manual) Nucleated RBC % Seg Neutrophils # Seg Neutrophils # Man Lymphocytes # (Manual) Monocytes # (Manual) PT INR APTT D-Dimer Heparin Anti-Xa Level ABG pH POC ABG pCO2 POC ABG pO2 66.1 L ABG pO2 ABG HCO3 ABG Hemoglobin 8.0 L ABG Oxyhemoglobin ABG Sodium 124.6 L ABG Potassium 5.5 H ABG Chloride 96.0 L ABG Glucose 111 H Carboxyhemoglobin Sodium Potassium Chloride Carbon Dioxide BUN Creatinine Glucose POC Glucose Lactic Acid Calcium Phosphorus Magnesium Ferritin Direct Bilirubin 0.7 H AST 94 H ALT 60 H Lactate Dehydrogenase Total Creatine Kinase C-Reactive Protein Total Protein 4.4 L Albumin 1.9 L Triglycerides Arterial Blood Glucose 111 H Arterial Blood Ionized Calcium 3.8 L Urine Creatinine Urine Chloride Vancomycin Trough Coronavirus (PCR) Crossmatch 07/03/20 07/03/20 07/03/20 09:15 10:10 14:50 WBC RBC Hgb Hct RDW Lymph % (Auto) Lymph # (Auto) [place] # (Auto) Seg Neutrophils % Seg Neuts % (Manual) Lymphocytes % (Manual) Nucleated RBC % Seg Neutrophils # Seg Neutrophils # Man Lymphocytes # (Manual) Monocytes # (Manual) PT INR APTT D-Dimer 6608.00 H Heparin Anti-Xa Level ABG pH POC ABG pCO2 POC ABG pO2 ABG pO2 ABG HCO3 ABG Hemoglobin ABG Oxyhemoglobin ABG Sodium ABG Potassium ABG Chloride ABG Glucose Carboxyhemoglobin Sodium 133 L Potassium 6.2 H* Chloride 93.1 L Carbon Dioxide BUN 89 H Creatinine 5.1 H Glucose POC Glucose Lactic Acid Calcium 7.0 L Phosphorus Magnesium Ferritin Direct Bilirubin AST ALT Lactate Dehydrogenase Total Creatine Kinase C-Reactive Protein Total Protein Albumin Triglycerides Arterial Blood Glucose Arterial Blood Ionized Calcium Urine Creatinine Urine Chloride Vancomycin Trough Coronavirus (PCR) Positive A Crossmatch 07/03/20 07/03/20 07/03/20 14:50 14:50 14:50 WBC RBC Hgb Hct RDW Lymph % (Auto) Lymph # (Auto) [place] # (Auto) Seg Neutrophils % Seg Neuts % (Manual) Lymphocytes % (Manual) Nucleated RBC % Seg Neutrophils # Seg Neutrophils # Man Lymphocytes # (Manual) Monocytes # (Manual) PT INR APTT D-Dimer Heparin Anti-Xa Level ABG pH POC ABG pCO2 POC ABG pO2 ABG pO2 ABG HCO3 ABG Hemoglobin ABG Oxyhemoglobin ABG Sodium ABG Potassium ABG Chloride ABG Glucose Carboxyhemoglobin Sodium Potassium Chloride Carbon Dioxide BUN Creatinine Glucose POC Glucose Lactic Acid < 0.20 L Calcium Phosphorus Magnesium Ferritin 1171.0 H Direct Bilirubin AST ALT Lactate Dehydrogenase 525 H Total Creatine Kinase C-Reactive Protein 31.50 H Total Protein Albumin Triglycerides Arterial Blood Glucose Arterial Blood Ionized Calcium Urine Creatinine Urine Chloride Vancomycin Trough Coronavirus (PCR) Crossmatch 07/03/20 07/04/20 07/04/20 16:47 05:20 05:20 WBC 11.8 H RBC 2.32 L Hgb 6.7 L Hct 20.8 L RDW Lymph % (Auto) 2.6 L Lymph # (Auto) 0.3 L [place] # (Auto) Seg Neutrophils % Seg Neuts % (Manual) Lymphocytes % (Manual) Nucleated RBC % Seg Neutrophils # 11.0 H Seg Neutrophils # Man Lymphocytes # (Manual) Monocytes # (Manual) PT INR APTT D-Dimer Heparin Anti-Xa Level ABG pH POC ABG pCO2 POC ABG pO2 ABG pO2 ABG HCO3 ABG Hemoglobin ABG Oxyhemoglobin ABG Sodium ABG Potassium ABG Chloride ABG Glucose Carboxyhemoglobin Sodium Potassium 6.0 H Chloride 97.8 L Carbon Dioxide BUN 75 H Creatinine 4.5 H Glucose 121 H POC Glucose 107 H Lactic Acid Calcium 7.9 L Phosphorus Magnesium Ferritin Direct Bilirubin AST ALT Lactate Dehydrogenase Total Creatine Kinase C-Reactive Protein Total Protein Albumin Triglycerides Arterial Blood Glucose Arterial Blood Ionized Calcium Urine Creatinine Urine Chloride Vancomycin Trough Coronavirus (PCR) Crossmatch 07/04/20 07/04/20 07/04/20 05:20 05:50 09:25 WBC RBC Hgb Hct RDW Lymph % (Auto) Lymph # (Auto) [place] # (Auto) Seg Neutrophils % Seg Neuts % (Manual) Lymphocytes % (Manual) Nucleated RBC % Seg Neutrophils # Seg Neutrophils # Man Lymphocytes # (Manual) Monocytes # (Manual) PT INR APTT D-Dimer Heparin Anti-Xa Level ABG pH 7.324 L POC ABG pCO2 POC ABG pO2 ABG pO2 98.9 H ABG HCO3 26.8 H ABG Hemoglobin < 5.1 L ABG Oxyhemoglobin ABG Sodium ABG Potassium ABG Chloride ABG Glucose Carboxyhemoglobin Sodium Potassium Chloride Carbon Dioxide BUN Creatinine Glucose POC Glucose 114 H Lactic Acid Calcium Phosphorus Magnesium Ferritin Direct Bilirubin AST ALT Lactate Dehydrogenase Total Creatine Kinase C-Reactive Protein Total Protein Albumin Triglycerides Arterial Blood Glucose Arterial Blood Ionized Calcium Urine Creatinine Urine Chloride Vancomycin Trough Coronavirus (PCR) Crossmatch See Detail 07/04/20 07/04/20 07/04/20 12:33 17:41 23:04 WBC RBC Hgb Hct RDW Lymph % (Auto) Lymph # (Auto) [place] # (Auto) Seg Neutrophils % Seg Neuts % (Manual) Lymphocytes % (Manual) Nucleated RBC % Seg Neutrophils # Seg Neutrophils # Man Lymphocytes # (Manual) Monocytes # (Manual) PT INR APTT D-Dimer Heparin Anti-Xa Level ABG pH POC ABG pCO2 POC ABG pO2 ABG pO2 ABG HCO3 ABG Hemoglobin ABG Oxyhemoglobin ABG Sodium ABG Potassium ABG Chloride ABG Glucose Carboxyhemoglobin Sodium Potassium Chloride Carbon Dioxide BUN Creatinine Glucose POC Glucose 119 H 109 H 116 H Lactic Acid Calcium Phosphorus Magnesium Ferritin Direct Bilirubin AST ALT Lactate Dehydrogenase Total Creatine Kinase C-Reactive Protein Total Protein Albumin Triglycerides Arterial Blood Glucose Arterial Blood Ionized Calcium Urine Creatinine Urine Chloride Vancomycin Trough Coronavirus (PCR) Crossmatch 07/05/20 07/05/20 07/05/20 04:30 08:21 08:21 WBC RBC 2.77 L Hgb 7.9 L Hct 23.9 L RDW 16.7 H Lymph % (Auto) 7.5 L Lymph # (Auto) 0.7 L [place] # (Auto) Seg Neutrophils % 85.8 H Seg Neuts % (Manual) Lymphocytes % (Manual) Nucleated RBC % Seg Neutrophils # 7.8 H Seg Neutrophils # Man Lymphocytes # (Manual) Monocytes # (Manual) PT INR APTT D-Dimer Heparin Anti-Xa Level ABG pH 7.295 L POC ABG pCO2 POC ABG pO2 ABG pO2 151.9 H ABG HCO3 26.8 H ABG Hemoglobin 7.3 L ABG Oxyhemoglobin ABG Sodium ABG Potassium ABG Chloride ABG Glucose Carboxyhemoglobin Sodium Potassium Chloride Carbon Dioxide BUN Creatinine Glucose POC Glucose Lactic Acid Calcium Phosphorus Magnesium Ferritin Direct Bilirubin AST ALT Lactate Dehydrogenase Total Creatine Kinase C-Reactive Protein Total Protein Albumin Triglycerides 258 H Arterial Blood Glucose Arterial Blood Ionized Calcium Urine Creatinine Urine Chloride Vancomycin Trough Coronavirus (PCR) Crossmatch 07/05/20 08:21 WBC RBC Hgb Hct RDW Lymph % (Auto) Lymph # (Auto) [place] # (Auto) Seg Neutrophils % Seg Neuts % (Manual) Lymphocytes % (Manual) Nucleated RBC % Seg Neutrophils # Seg Neutrophils # Man Lymphocytes # (Manual) Monocytes # (Manual) PT INR APTT D-Dimer Heparin Anti-Xa Level ABG pH POC ABG pCO2 POC ABG pO2 ABG pO2 ABG HCO3 ABG Hemoglobin ABG Oxyhemoglobin ABG Sodium ABG Potassium ABG Chloride ABG Glucose Carboxyhemoglobin Sodium 133 L Potassium 5.6 H Chloride 94.4 L Carbon Dioxide BUN 80 H Creatinine 4.2 H Glucose 114 H POC Glucose Lactic Acid Calcium 7.6 L Phosphorus Magnesium Ferritin Direct Bilirubin 0.5 H AST 75 H ALT 86 H Lactate Dehydrogenase Total Creatine Kinase C-Reactive Protein Total Protein 5.6 L D Albumin 1.9 L Triglycerides Arterial Blood Glucose Arterial Blood Ionized Calcium Urine Creatinine Urine Chloride Vancomycin Trough Coronavirus (PCR) Crossmatch Chest x-ray: other (none today) Allied health notes reviewed: nursing
--- NOTE | 2020-07-05 16:24 | Progress Note ---
Assessment and Plan Cultures: SARS CoV2 PCR: Positive as outpatient Blood culture: no growth Sputum culture: no growth A/P: 59-year-old male with obesity, obesity hypoventilation syndrome: #Severe sepsis with septic shock: likely secondary to critical COVID-19 pneumonia. Blood cultures so far negative. ?Bacterial pneumonia component, but sputum culture with no growth. On empiric abx, steroids. Completed Remdesivir. #Critical COVID-19 pneumonia: Procalcitonin also high on admission (Now with worsening GIRISH, no longer reliable), completed empiric antibiotic course. #Acute hypoxic respiratory failure: on the vent #Transaminitis: Likely secondary to COVID-19. #GIRISH: On HD MWF, started 06/22/2020 Recs: -completed steroids, remdesivir, cefepime -if febrile again, would reculture ET aspirate, blood and start IV Cefepime + Vancomycin renally dosed -prophylactic anticoagulation based on d-dimer per hospital protocol -poor prognosis Юлия Finney MD [facility] ([facility] O: [phone] F: [phone] Subjective Date of service: 07/05/20 Principal diagnosis: ARF/Septic Shock/COVID-19 PNA, AF with RVR Interval history: Afebrile, normal white count. Objective - Exam Narrative Exam: Physical exam deferred due to PPE conservation strategy. Please refer to primary team's note. - Constitutional Vitals: Vital Signs Temp Pulse Resp BP Pulse Ox 98.3 F 102 H 15 107/59 96 07/05/20 12:00 07/05/20 16:00 07/05/20 16:00 07/05/20 16:00 07/05/20 16:00 Temperature -Last 24 Hours Temperature 98.3 F Temperature 97.9 F Temperature 97.3 F Temperature 98.2 F Temperature 98.2 F - Labs CBC & Chem 7: 07/05/20 08:21 07/05/20 08:21 Labs: Abnormal lab results 07/01/20 07/04/20 07/04/20 Range/Units 11:04 17:41 23:04 RBC (3.65-5.03) M/mm3 Hgb (11.8-15.2) gm/dl Hct (35.5-45.6) % RDW (13.2-15.2) % Lymph % (Auto) (13.4-35.0) % Lymph # (Auto) (1.2-5.4) K/mm3 Seg Neutrophils % (40.0-70.0) % Seg Neutrophils # (1.8-7.7) K/mm3 ABG pH (7.350-7.450) pH Units ABG pO2 (80.0-90.0) mm Hg ABG HCO3 (20.0-26.0) mmol/L ABG Hemoglobin (14.0-18.0) gm/dl Sodium (137-145) mmol/L Potassium (3.6-5.0) mmol/L Chloride (98-107) mmol/L BUN (9-20) mg/dL Creatinine (0.8-1.3) mg/dL Glucose (75-100) mg/dL POC Glucose 109 H 116 H (70-105) mg/dL Calcium (8.4-10.2) mg/dL Direct Bilirubin (0-0.2) mg/dL AST (5-40) units/L ALT (7-56) units/L Total Protein (6.3-8.2) g/dL Albumin (3.9-5) g/dL Triglycerides (2-149) mg/dL Crossmatch See Detail 07/05/20 07/05/20 07/05/20 Range/Units 04:30 08:21 08:21 RBC 2.77 L (3.65-5.03) M/mm3 Hgb 7.9 L (11.8-15.2) gm/dl Hct 23.9 L (35.5-45.6) % RDW 16.7 H (13.2-15.2) % Lymph % (Auto) 7.5 L (13.4-35.0) % Lymph # (Auto) 0.7 L (1.2-5.4) K/mm3 Seg Neutrophils % 85.8 H (40.0-70.0) % Seg Neutrophils # 7.8 H (1.8-7.7) K/mm3 ABG pH 7.295 L (7.350-7.450) pH Units ABG pO2 151.9 H (80.0-90.0) mm Hg ABG HCO3 26.8 H (20.0-26.0) mmol/L ABG Hemoglobin 7.3 L (14.0-18.0) gm/dl Sodium (137-145) mmol/L Potassium (3.6-5.0) mmol/L Chloride (98-107) mmol/L BUN (9-20) mg/dL Creatinine (0.8-1.3) mg/dL Glucose (75-100) mg/dL POC Glucose (70-105) mg/dL Calcium (8.4-10.2) mg/dL Direct Bilirubin (0-0.2) mg/dL AST (5-40) units/L ALT (7-56) units/L Total Protein (6.3-8.2) g/dL Albumin (3.9-5) g/dL Triglycerides 258 H (2-149) mg/dL Crossmatch 07/05/20 07/05/20 Range/Units 08:21 12:12 RBC (3.65-5.03) M/mm3 Hgb (11.8-15.2) gm/dl Hct (35.5-45.6) % RDW (13.2-15.2) % Lymph % (Auto) (13.4-35.0) % Lymph # (Auto) (1.2-5.4) K/mm3 Seg Neutrophils % (40.0-70.0) % Seg Neutrophils # (1.8-7.7) K/mm3 ABG pH (7.350-7.450) pH Units ABG pO2 (80.0-90.0) mm Hg ABG HCO3 (20.0-26.0) mmol/L ABG Hemoglobin (14.0-18.0) gm/dl Sodium 133 L (137-145) mmol/L Potassium 5.6 H (3.6-5.0) mmol/L Chloride 94.4 L (98-107) mmol/L BUN 80 H (9-20) mg/dL Creatinine 4.2 H (0.8-1.3) mg/dL Glucose 114 H (75-100) mg/dL POC Glucose 106 H (70-105) mg/dL Calcium 7.6 L (8.4-10.2) mg/dL Direct Bilirubin 0.5 H (0-0.2) mg/dL AST 75 H (5-40) units/L ALT 86 H (7-56) units/L Total Protein 5.6 L D (6.3-8.2) g/dL Albumin 1.9 L (3.9-5) g/dL Triglycerides (2-149) mg/dL Crossmatch
--- NOTE | 2020-07-05 17:21 | Progress Note ---
Assessment and Plan 59-year-old white male who was admitted for pneumonia secondary to Covid with associated respiratory failure and sepsis. Hyperkalemia -Treated aggressively -Calcium gluconate IV sodium bicarbonate and Kayexalate given Acute metabolic encephalopathy -Due to severe sepsis and severe hypoxia -CT head ordered (patient is too unstable to do the scan), currently intubated, continue supportive care with frequent neuro check Acute hypoxic respiratory failure -Due to severe COVID-19 pneumonia -Intubated following admission overnight as patient was unable to maintain oxygenation with 100% FiO2 with BiPAP -Critical care following, frequent nebulizer breathing treatment, empiric steroid Severe septic shock -Patient currently on 2 pressor support -Wean off as tolerated COVID-19 pneumonia -Follow inflammatory markers, ID consulted --Patient initially tested positive for COVID-19 virus about 2 weeks before this admission -CXR shows patchy parenchymal disease which represent pulmonary edema or atypical pneumonia -Placed on dexamethasone for total 10 days and completed remdesivir total 5 days -Continue empiric antibiotics for now per ID recommendation -Droplet/contact isolation -Continue SPO2 monitoring -Supplemental oxygen as needed -Pulmonary hygiene, Prone intermittently to improve oxygenation -Vitamin C, vitamin D, zinc -Anticoagulation per protocol -Lasix IV as needed to prevent pulmonary edema GIRISH, likely ATN -Follow BMP daily, avoid nephrotoxins -Consulted nephrology, follow recommendations -Renal function continues to decline, started on hemodialysis since 06/22/20 hypokalemia, repleted Supraventricular tachycardia/paroxysmal atrial fibrillation -likely due to severe sepsis -Patient currently on pressors and IV amiodarone drip for rate control if needed -Consulted cardiology, echo ordered currently pending -Placed on heparin drip Elevated LFT, due to shock liver from severe sepsis and COVID-19 infection -Continue to trend Morbid obesity, -Associated with poor outcome with Covid infection -need counseling for diet and exercise and healthy lifestyles once clinically stable as outpatient DVT prophylaxis, per Covid protocol Full CODE STATUS Poor prognosis The high probability of a clinically significant, sudden or life threatening deterioration of the [[employer], [employer]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 The aggregate critical care time was [42] minutes. This time is in addition to time spent performing reported procedures but includes the following: [x] Data Review and interpretation [x] Patient assessment and monitoring of vital signs [x] Documentation [x] Medication orders and management daily course: 06/18: Patient got intubated overnight. Patient was placed on BiPAP to maintain oxygenation with 100% FiO2 but apparently he found to take off his argueta which made his oxygen saturation go down at 60s/50s and patient was found altered mental status. Code met was called immediately. Patient was transferred to ICU and intubated, patient currently on 2 pressors, intubated with 100% FiO2, renal function noted to be decline, nephrology consulted. Discussed with [place] physician Dr. Thompson and requested call back on Saturday. Poor prognosis, continue to monitor with aggressive supportive care. Also called family/ to update clinical status. 06/19: Repeat COVID test was positive. cont cefepime, remdesivir per ID recommendation. follow inflammatory markers, cbc, bmp. placed on heparin drip for atrial fib 06/20: Remains on mechanical ventilation, on 2 pressors, on heparin drip. discussed with and daughter by phone. Renal function declining. cont supportive care for now. 06/21: Renal function cont to decline, urine outpt sig decreased. started on lasix 80mg BID, plan to follow urine output, if no improvement patient need to start on HD. called and daughter today. updated all clinical details 06/22: Renal function continues to decline with uremia and hyperkalemia. Will need to proceed with hemodialysis. Nephrology discussed with the family and they agrees for the hemodialysis. Patient remains on pressor support and mechanical ventilation. Vas-Cath placed today by vascular started on hemodialysis today. 06/23: 2nd round of HD today, remains on 2 pressors. per RN not tolerating TF, has no record of BM since 06/18. start on stool softner. follow cbc/bmp. updated family( and daughter) by phone -all question answered to best of my knowledge and to their satisfaction. Patient remains critically ill with a very poor prognosis. 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 06/25/2020 continue supportive care very poor prognosis 06/26/2020 continue supportive care very poor prognosis family updated 06/27/2020 continue supportive care and weaning if possible 06/28/2020 continue supportive care, talk with at length 06/29: Resumed care. K level persistently high. give one dose of bicarbonate, plan for HD today, recheck k after HD. updated family by phone 06/30: updated family by phone. Patient remains on amiodarone drip and vasopressin. Getting HD at the bedside. Tolerating tube feeding at low rate. 07/01: Hb dropped to 6.4 today, transfuse one unit PRBC. patient is off pressor today, remains on amioderone. cont to monitor 07/02: Called patient and updated clinical details. Patient remains critically ill, still intubated. Patient's oxygen requirement and PEEP pressure has went down. Continue weaning protocol per critical care recommendation. Patient remains off pressor. Continue to wean off from amiodarone and plan to rate control with p.o. medications. Tolerating tube feeding. H&H stable today. Order for stool for occult blood. Monitor H&H and BMP. Continue to follow clinically 07/03: discussed with [place] physician today. Patient back on 100percent Fio2 since last night. planned for emergent Hd today. spiked fever, start IV Cefepime + Vancomycin renally dosed. Restarted Levophed today, remains on amiodarone drip. Patient family was updated by critical care attending today. 07/04: Patient has hemodialysis yesterday and also plan for today for volume overload and pulmonary edema. Patient currently on 80% FiO2. Remains on Levophed and amiodarone. Hemoglobin dropped to 6.7 without any evidence of active bleeding. LFTs remain stable. Repeat Covid test on 06/30 and 07/03 remains positive. Will transfuse another unit of packed RBC today. Called family for update -explained family that patient is critically ill with very poor prognosis. 07/05: Patient on 70% FiO2 with PEEP of 12. h/h stable after transfusion. hyperkalemia improved, cont sodiumbicarbonate pill with TF. follow BMP. off levophed today, remains on amioderone. poor prognosis. Subjective Date of service: 07/05/20 Principal diagnosis: ARF/Septic Shock/COVID-19 PNA, AF with RVR Objective - Constitutional Vitals: Vital Signs - 12hr 07/05/20 07/05/20 07/05/20 05:30 05:45 06:00 Temperature Pulse Rate 98 H 95 H 92 H Pulse Rate [ From Monitor] Pulse Rate [ Right Dorsalis Pedis] Respiratory 17 15 13 Rate Blood Pressure 103/55 106/52 114/47 O2 Sat by Pulse 99 98 98 Oximetry 07/05/20 07/05/20 07/05/20 06:04 06:15 06:30 Temperature Pulse Rate 96 H 93 H 104 H Pulse Rate [ From Monitor] Pulse Rate [ Right Dorsalis Pedis] Respiratory 21 16 Rate Blood Pressure 114/47 116/71 131/63 O2 Sat by Pulse 99 95 Oximetry 07/05/20 07/05/20 07/05/20 06:45 07:00 07:15 Temperature Pulse Rate 98 H 83 95 H Pulse Rate [ From Monitor] Pulse Rate [ Right Dorsalis Pedis] Respiratory 15 15 18 Rate Blood Pressure 106/53 109/48 101/49 O2 Sat by Pulse 96 97 97 Oximetry 07/05/20 07/05/20 07/05/20 07:30 07:45 08:00 Temperature 97.9 F Pulse Rate 91 H 89 100 H Pulse Rate [ 102 H From Monitor] Pulse Rate [ 102 H Right Dorsalis Pedis] Respiratory 14 16 18 Rate Blood Pressure 95/43 86/47 102/49 O2 Sat by Pulse 98 97 98 Oximetry 07/05/20 07/05/20 07/05/20 08:15 08:30 08:45 Temperature Pulse Rate 92 H 97 H 87 Pulse Rate [ From Monitor] Pulse Rate [ Right Dorsalis Pedis] Respiratory 15 16 20 Rate Blood Pressure 101/49 109/45 109/51 O2 Sat by Pulse 98 98 98 Oximetry 07/05/20 07/05/20 07/05/20 09:00 09:15 09:30 Temperature Pulse Rate 92 H 91 H 87 Pulse Rate [ From Monitor] Pulse Rate [ Right Dorsalis Pedis] Respiratory 21 19 20 Rate Blood Pressure 97/52 106/52 101/48 O2 Sat by Pulse 98 98 98 Oximetry 07/05/20 07/05/20 07/05/20 09:45 10:00 10:16 Temperature Pulse Rate 91 H 92 H 90 Pulse Rate [ From Monitor] Pulse Rate [ Right Dorsalis Pedis] Respiratory 18 14 16 Rate Blood Pressure 91/49 87/51 93/54 O2 Sat by Pulse 98 97 97 Oximetry 07/05/20 07/05/20 07/05/20 10:30 10:45 11:00 Temperature Pulse Rate 81 97 H 90 Pulse Rate [ From Monitor] Pulse Rate [ Right Dorsalis Pedis] Respiratory 16 18 19 Rate Blood Pressure 98/50 97/53 105/52 O2 Sat by Pulse 97 98 98 Oximetry 07/05/20 07/05/20 07/05/20 11:15 11:30 11:45 Temperature Pulse Rate 91 H 94 H 101 H Pulse Rate [ From Monitor] Pulse Rate [ Right Dorsalis Pedis] Respiratory 18 17 20 Rate Blood Pressure 84/57 134/57 131/63 O2 Sat by Pulse 97 97 97 Oximetry 07/05/20 07/05/20 07/05/20 11:56 12:00 12:07 Temperature 98.3 F Pulse Rate 90 88 92 H Pulse Rate [ 102 H From Monitor] Pulse Rate [ 102 H Right Dorsalis Pedis] Respiratory 16 Rate Blood Pressure 131/63 117/54 O2 Sat by Pulse 98 98 Oximetry 07/05/20 07/05/20 07/05/20 12:15 12:30 12:45 Temperature Pulse Rate 97 H 98 H 107 H Pulse Rate [ From Monitor] Pulse Rate [ Right Dorsalis Pedis] Respiratory 19 24 20 Rate Blood Pressure 121/61 113/59 120/60 O2 Sat by Pulse 98 98 98 Oximetry 07/05/20 07/05/20 07/05/20 13:00 13:15 13:30 Temperature Pulse Rate 95 H 87 94 H Pulse Rate [ From Monitor] Pulse Rate [ Right Dorsalis Pedis] Respiratory 14 14 16 Rate Blood Pressure 126/58 108/50 100/52 O2 Sat by Pulse 98 99 99 Oximetry 07/05/20 07/05/20 07/05/20 13:45 14:00 14:15 Temperature Pulse Rate 90 94 H 85 Pulse Rate [ From Monitor] Pulse Rate [ Right Dorsalis Pedis] Respiratory 16 12 13 Rate Blood Pressure 109/55 110/49 114/46 O2 Sat by Pulse 98 98 96 Oximetry 07/05/20 07/05/20 07/05/20 14:30 14:45 15:00 Temperature Pulse Rate 93 H 97 H 95 H Pulse Rate [ From Monitor] Pulse Rate [ Right Dorsalis Pedis] Respiratory 16 15 14 Rate Blood Pressure 119/51 121/56 122/53 O2 Sat by Pulse 96 96 96 Oximetry 07/05/20 07/05/20 07/05/20 15:15 15:30 15:45 Temperature Pulse Rate 96 H 104 H 96 H Pulse Rate [ From Monitor] Pulse Rate [ Right Dorsalis Pedis] Respiratory 15 14 13 Rate Blood Pressure 119/57 110/53 106/49 O2 Sat by Pulse 95 96 96 Oximetry 07/05/20 07/05/20 07/05/20 16:00 16:15 16:30 Temperature Pulse Rate 97 H 99 H 93 H Pulse Rate [ 102 H From Monitor] Pulse Rate [ 102 H Right Dorsalis Pedis] Respiratory 15 13 15 Rate Blood Pressure 107/59 122/49 122/60 O2 Sat by Pulse 96 97 98 Oximetry 07/05/20 07/05/20 16:45 17:00 Temperature Pulse Rate 100 H 104 H Pulse Rate [ From Monitor] Pulse Rate [ Right Dorsalis Pedis] Respiratory 17 25 H Rate Blood Pressure 130/58 130/63 O2 Sat by Pulse 96 95 Oximetry - Labs CBC & Chem 7: 07/05/20 08:21 07/05/20 08:21 Labs: Abnormal lab results 07/04/20 07/04/20 07/05/20 Range/Units 17:41 23:04 04:30 RBC (3.65-5.03) M/mm3 Hgb (11.8-15.2) gm/dl Hct (35.5-45.6) % RDW (13.2-15.2) % Lymph % (Auto) (13.4-35.0) % Lymph # (Auto) (1.2-5.4) K/mm3 Seg Neutrophils % (40.0-70.0) % Seg Neutrophils # (1.8-7.7) K/mm3 ABG pH 7.295 L (7.350-7.450) pH Units ABG pO2 151.9 H (80.0-90.0) mm Hg ABG HCO3 26.8 H (20.0-26.0) mmol/L ABG Hemoglobin 7.3 L (14.0-18.0) gm/dl Sodium (137-145) mmol/L Potassium (3.6-5.0) mmol/L Chloride (98-107) mmol/L BUN (9-20) mg/dL Creatinine (0.8-1.3) mg/dL Glucose (75-100) mg/dL POC Glucose 109 H 116 H (70-105) mg/dL Calcium (8.4-10.2) mg/dL Direct Bilirubin (0-0.2) mg/dL AST (5-40) units/L ALT (7-56) units/L Total Protein (6.3-8.2) g/dL Albumin (3.9-5) g/dL Triglycerides (2-149) mg/dL 07/05/20 07/05/20 07/05/20 Range/Units 08:21 08:21 08:21 RBC 2.77 L (3.65-5.03) M/mm3 Hgb 7.9 L (11.8-15.2) gm/dl Hct 23.9 L (35.5-45.6) % RDW 16.7 H (13.2-15.2) % Lymph % (Auto) 7.5 L (13.4-35.0) % Lymph # (Auto) 0.7 L (1.2-5.4) K/mm3 Seg Neutrophils % 85.8 H (40.0-70.0) % Seg Neutrophils # 7.8 H (1.8-7.7) K/mm3 ABG pH (7.350-7.450) pH Units ABG pO2 (80.0-90.0) mm Hg ABG HCO3 (20.0-26.0) mmol/L ABG Hemoglobin (14.0-18.0) gm/dl Sodium 133 L (137-145) mmol/L Potassium 5.6 H (3.6-5.0) mmol/L Chloride 94.4 L (98-107) mmol/L BUN 80 H (9-20) mg/dL Creatinine 4.2 H (0.8-1.3) mg/dL Glucose 114 H (75-100) mg/dL POC Glucose (70-105) mg/dL Calcium 7.6 L (8.4-10.2) mg/dL Direct Bilirubin 0.5 H (0-0.2) mg/dL AST 75 H (5-40) units/L ALT 86 H (7-56) units/L Total Protein 5.6 L D (6.3-8.2) g/dL Albumin 1.9 L (3.9-5) g/dL Triglycerides 258 H (2-149) mg/dL 07/05/20 Range/Units 12:12 RBC (3.65-5.03) M/mm3 Hgb (11.8-15.2) gm/dl Hct (35.5-45.6) % RDW (13.2-15.2) % Lymph % (Auto) (13.4-35.0) % Lymph # (Auto) (1.2-5.4) K/mm3 Seg Neutrophils % (40.0-70.0) % Seg Neutrophils # (1.8-7.7) K/mm3 ABG pH (7.350-7.450) pH Units ABG pO2 (80.0-90.0) mm Hg ABG HCO3 (20.0-26.0) mmol/L ABG Hemoglobin (14.0-18.0) gm/dl Sodium (137-145) mmol/L Potassium (3.6-5.0) mmol/L Chloride (98-107) mmol/L BUN (9-20) mg/dL Creatinine (0.8-1.3) mg/dL Glucose (75-100) mg/dL POC Glucose 106 H (70-105) mg/dL Calcium (8.4-10.2) mg/dL Direct Bilirubin (0-0.2) mg/dL AST (5-40) units/L ALT (7-56) units/L Total Protein (6.3-8.2) g/dL Albumin (3.9-5) g/dL Triglycerides (2-149) mg/dL HEART Score - HEART Score Troponin: Troponin T < 0.010 ng/mL (0.00-0.029) 06/17/20 12:33
[2020-07-06] MEDS: dilTIAZem 30 MG TAB PO SCH ×4 (00:20→18:26)
[2020-07-06] MEDS: INSULIN REGULAR, HUMAN 100 UNITS/1 ML SUB-Q SCH ×4 (00:25→17:59)
[2020-07-06] MEDS: fentaNYL DRIP Premix 2,000 MCG/100 ML BAG IV SCH ×4 (02:40→21:53)
[2020-07-06] MEDS: AMIODARONE 900 MG in DEXTROSE 5% IN WATER 482 ML IV SCH (04:20)
[2020-07-06] MEDS: METOCLOPRAMIDE 10 MG/2 ML INJ IV SCH ×3 (06:04→20:48)
[2020-07-06] MEDS: HEPARIN 5,000 UNIT/1 ML VIAL SUB-Q SCH ×3 (06:13→21:25)
--- NOTE | 2020-07-06 09:50 | Progress Note ---
Assessment and Plan tele reviewed - currently in AFib HR 90s - 100s. Cont IV amio and PO cardizem with hold parameters as BPs permit. Severe anemia noted. Heparin gtt held. PRBC tx PRN per primary. Further eval/management per primary. Pt is critically ill. Overall guarded prognosis. The patient has been seen in conjunction with Dr. Singh who agrees with the assessment and plan of care. - Patient Problems (1) Acute respiratory failure with hypoxia Current Visit: Yes Status: Acute (2) Pneumonia due to COVID-19 virus Current Visit: Yes Status: Acute (3) Sepsis Current Visit: Yes Status: Acute Qualifiers: Severe sepsis acute organ dysfunction type: acute respiratory failure Severe sepsis shock status: with septic shock (4) Atrial fibrillation with rapid ventricular response Current Visit: Yes Status: Acute (5) Acute renal failure Current Visit: Yes Status: Acute (6) Elevated LFTs Current Visit: Yes Status: Acute (7) Anemia Current Visit: Yes Status: Acute Subjective Date of service: 07/06/20 Principal diagnosis: ARF/Septic Shock/COVID-19 PNA, AF with RVR Interval history: pt remains intubated, sedated. intermittently requiring vasopressor support. on amio gtt. tele reviewed - currently in AFib/AFlutter HR 90s. Objective Last Vital Signs Temp 98.4 F 07/06/20 08:00 Pulse 105 H 07/06/20 08:51 Resp 19 07/06/20 06:16 BP 120/52 07/06/20 08:51 Pulse Ox 93 07/06/20 08:51 - Physical Examination General: Other (intubated, lethargic) Neck: Positive: neck supple Cardiac: Positive: irregularly irregular, S1/S2 Lungs: Positive: Decreased Breath Sounds Neuro: Positive: Other (intubated, lethargic) Abdomen: Positive: Soft Skin: Negative: Rash, Wound Extremities: Present: upper extr. pulses, lower extr. pulses, +1 Edema - Imaging and Cardiology EKG: report reviewed, image reviewed Echo: report reviewed (TDS, EF 55-60%. ) - Telemetry EKG Rhythm: Atrial Fibrillation - EKG Sinus rhythms and dysrhythmias: sinus tachycardia - Allied health notes Allied health notes reviewed: nursing
[2020-07-06] MEDS: CHOLECALCIFEROL (VIT D3) 1000 UNIT (25 mcg) TAB PO SCH (10:07)
[2020-07-06] MEDS: ZINC SULFATE 220 MG CAP PO SCH ×2 (10:08→21:15)
[2020-07-06] MEDS: POLYETHYLENE GLYCOL 3350 17 GM POWDER PO SCH (10:08)
[2020-07-06] MEDS: QUEtiapine 200 MG TAB PO SCH ×2 (10:08→21:15)
[2020-07-06] MEDS: DOCUSATE SODIUM 100 MG/10 ML ORAL LIQD FEEDTUBE SCH ×2 (10:08→21:15)
[2020-07-06] MEDS: SODIUM BICARBONATE 650 MG TAB PO SCH ×3 (10:08→20:48)
[2020-07-06] MEDS: dexAMETHasone 4 MG/ML VIAL IV SCH (10:08)
[2020-07-06] MEDS: FAMOTIDINE 20 MG/2 ML INJ IV SCH (10:08)
[2020-07-06] MEDS: ASCORBIC ACID 250 MG TAB PO SCH ×2 (10:10→21:15)
--- NOTE | 2020-07-06 10:27 | Progress Note ---
Assessment and Plan - Patient Problems (1) GIRISH (acute kidney injury) Current Visit: Yes Status: Acute Plan to address problem: Acute kidney failure 2/2 prerenal azotemia versus acute tubular necrosis, patient without significant renal recovery, remains dialysis dependent. cont HD on MWF schedule (2) Severe sepsis with septic shock Current Visit: Yes Status: Acute Plan to address problem: Continue antibiotics per infectious disease field technical support consultant appropriately adjusted to the degree of renal function. Patient is on intermittent vasopressors to [place] in MAP > 65mmHg . (3) Hyperkalemia Current Visit: Yes Status: Acute Plan to address problem: For HD to day using 2K bath. cont 2g K renal diet (4) Metabolic acidosis Current Visit: Yes Status: Acute Plan to address problem: Acidosis improving with dialysis. (5) Acute respiratory failure with hypoxia Current Visit: Yes Status: Acute Plan to address problem: Continue respiratory management by pulmonary (6) Pneumonia due to COVID-19 virus Current Visit: Yes Status: Acute Plan to address problem: IV Dexamethasone Supplemental oxygen/Respiratory support as needed Proning as tolerated Remdesevir contra-indicated due to Kidney failure Prophylactic anticoagulation Trend inflammatory markers to assess disease progression and prognosis Subjective Date of service: 07/06/20 Principal diagnosis: ARF/Septic Shock/COVID-19 PNA, AF with RVR Interval history: Patient was not examined today due to the COVID-19 status 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 I reviewed multidisciplinary notes and discussed with staff and physicians as needed. Patient is sedated on propofol and fentanyl. He is on anticoagulation with intravenous heparin. HD well tolerated yesterday with 1L UF. pt remains off vasopressors, on ventilator support with FiO2 60% Objective - Exam Narrative Exam: exam deferred d/t PPE preservation - Vital Signs Vital signs: Vital Signs - 12hr 07/05/20 07/05/20 07/05/20 22:30 22:45 22:55 Temperature Pulse Rate 90 109 H 88 Pulse Rate [ Right Dorsalis Pedis] Respiratory 15 18 16 Rate Blood Pressure 115/46 124/52 124/52 O2 Sat by Pulse 96 96 96 Oximetry 07/05/20 07/05/20 07/05/20 23:00 23:04 23:15 Temperature Pulse Rate 87 100 H 99 H Pulse Rate [ Right Dorsalis Pedis] Respiratory 15 17 16 Rate Blood Pressure 114/46 114/46 115/50 O2 Sat by Pulse 96 96 96 Oximetry 07/05/20 07/05/20 07/05/20 23:24 23:30 23:45 Temperature Pulse Rate 104 H 104 H 95 H Pulse Rate [ Right Dorsalis Pedis] Respiratory 17 16 20 Rate Blood Pressure 114/46 122/54 119/57 O2 Sat by Pulse 95 95 96 Oximetry 07/06/20 07/06/20 07/06/20 00:00 00:15 00:20 Temperature 99.2 F Pulse Rate 101 H 95 H 104 H Pulse Rate [ 92 H Right Dorsalis Pedis] Respiratory 25 H 17 Rate Blood Pressure 114/59 123/55 123/55 O2 Sat by Pulse 94 90 Oximetry 07/06/20 07/06/20 07/06/20 00:21 00:30 00:45 Temperature Pulse Rate 99 H 105 H 103 H Pulse Rate [ Right Dorsalis Pedis] Respiratory 18 19 Rate Blood Pressure 123/55 127/57 123/59 O2 Sat by Pulse 96 95 96 Oximetry 07/06/20 07/06/20 07/06/20 01:00 01:15 01:30 Temperature Pulse Rate 146 H 104 H 103 H Pulse Rate [ Right Dorsalis Pedis] Respiratory 29 H 35 H 20 Rate Blood Pressure 125/55 130/53 127/58 O2 Sat by Pulse 96 96 96 Oximetry 07/06/20 07/06/20 07/06/20 01:46 02:00 02:15 Temperature Pulse Rate 107 H 96 H 99 H Pulse Rate [ Right Dorsalis Pedis] Respiratory 22 19 17 Rate Blood Pressure 118/52 121/48 116/51 O2 Sat by Pulse 95 96 96 Oximetry 07/06/20 07/06/20 07/06/20 02:30 02:45 03:00 Temperature Pulse Rate 98 H 103 H 97 H Pulse Rate [ Right Dorsalis Pedis] Respiratory 26 H 23 15 Rate Blood Pressure 112/52 101/56 116/50 O2 Sat by Pulse 96 96 96 Oximetry 07/06/20 07/06/20 07/06/20 03:15 03:30 03:45 Temperature Pulse Rate 103 H 94 H 91 H Pulse Rate [ Right Dorsalis Pedis] Respiratory 12 13 15 Rate Blood Pressure 111/51 103/50 109/48 O2 Sat by Pulse 96 97 96 Oximetry 07/06/20 07/06/20 07/06/20 04:00 04:15 04:29 Temperature 98.5 F Pulse Rate 106 H 101 H 94 H Pulse Rate [ 92 H Right Dorsalis Pedis] Respiratory 13 14 Rate Blood Pressure 111/49 101/49 101/49 O2 Sat by Pulse 97 96 96 Oximetry 07/06/20 07/06/20 07/06/20 04:30 04:45 05:00 Temperature Pulse Rate 96 H 105 H 105 H Pulse Rate [ Right Dorsalis Pedis] Respiratory 15 13 14 Rate Blood Pressure 98/46 98/50 92/53 O2 Sat by Pulse 97 97 97 Oximetry 07/06/20 07/06/20 07/06/20 05:15 05:30 05:45 Temperature Pulse Rate 101 H 86 89 Pulse Rate [ Right Dorsalis Pedis] Respiratory 14 13 14 Rate Blood Pressure 98/53 109/49 109/48 O2 Sat by Pulse 97 97 97 Oximetry 07/06/20 07/06/20 07/06/20 06:00 06:04 06:16 Temperature Pulse Rate 115 H 103 H 92 H Pulse Rate [ Right Dorsalis Pedis] Respiratory 12 19 Rate Blood Pressure 117/54 117/54 123/49 O2 Sat by Pulse 96 97 Oximetry 07/06/20 07/06/20 08:00 08:51 Temperature 98.4 F Pulse Rate 105 H Pulse Rate [ 94 H Right Dorsalis Pedis] Respiratory Rate Blood Pressure 120/52 O2 Sat by Pulse 93 Oximetry - Lab 07/05/20 08:21 07/05/20 08:21 Most recent lab results ABG pH 7.291 (7.320-7.450) L 07/06/20 04:29 ABG pCO2 56.4 mm Hg 07/05/20 04:30 ABG pO2 151.9 mm Hg (80.0-90.0) H 07/05/20 04:30 ABG HCO3 26.8 mmol/L (20.0-26.0) H 07/05/20 04:30 ABG O2 Saturation 98.7 % (95.0-99.0) 07/05/20 04:30 Calcium 7.6 mg/dL (8.4-10.2) L 07/05/20 08:21 Phosphorus 9.40 mg/dL (2.5-4.5) H 06/30/20 03:50 Magnesium 2.70 mg/dL (1.7-2.3) H 06/18/20 20:33 Urine Creatinine 192.4 mg/dL (0.1-20.0) H 06/18/20 15:00 Urine Sodium 28 mmol/L 06/18/20 15:00 Medications & Allergies - Medications Allergies/Adverse Reactions: Allergies No Known Allergies Allergy (Unverified 06/17/20 14:24) Home Medications: Home Medications Medication Instructions Recorded Confirmed Last Taken Type Losartan/Hydrochlorothiazide 1 each PO QDAY 06/19/20 06/19/20 Unknown History [Losartan-Hctz 100-25 mg Tab] amLODIPine [Norvasc] 5 mg PO DAILY 06/19/20 06/19/20 Unknown History Active Medications: Generic Name Dose Route Start Last Admin Trade Name Freq PRN Reason Stop Dose Admin Acetaminophen 650 mg 06/17/20 14:17 07/03/20 09:16 Acetaminophen 325 Mg Tab PO 650 mg Q4H PRN Administration Pain MILD(1-3)/Fever >100.5/ROBERTS Lipase/Protease/Amylase 1 each 06/19/20 12:15 Lipase 10,500/Protease 25,000/Amylase 43,750 (Units) Dr Kulkarni FEEDTUBE PRN PRN For Clogged Feeding Tube Ascorbic Acid 250 mg 06/17/20 22:00 07/06/20 10:10 Ascorbic Acid 250 Mg Tab PO 250 mg BID CONNOR Administration Cholecalciferol 1,000 unit 06/18/20 10:00 07/06/20 10:07 Cholecalciferol (Vit D3) 1000 Unit (25 Mcg) Tab PO 1,000 unit DAILY CONNOR Administration Dexamethasone 6 mg 07/03/20 14:00 07/06/20 10:08 Dexamethasone 4 Mg/Ml Vial IV 07/13/20 13:59 6 mg DAILY CONNOR Administration Diltiazem HCl 30 mg 07/02/20 12:00 07/06/20 06:04 Diltiazem 30 Mg Tab PO 30 mg Q6HR CONNOR Administration Docusate Sodium 100 mg 06/23/20 15:00 07/06/20 10:08 Docusate Sodium 100 Mg/10 Ml Oral Liqd FEEDTUBE 100 mg BID CONNOR Administration Famotidine 20 mg 06/20/20 11:00 07/06/20 10:08 Famotidine 20 Mg/2 Ml Inj IV 20 mg DAILY CONNOR Administration Fentanyl 50 mcg 06/18/20 01:02 06/28/20 04:32 Fentanyl 100 Mcg/2 Ml Inj IV 50 mcg Q10MIN PRN Administration ANALGESIA Heparin Sodium (Porcine) 5,000 unit 06/22/20 12:53 06/30/20 13:36 Heparin 10,000 Unit/1 Ml Vial IV 5,000 unit PAM PRN Administration hemodialysis Heparin Sodium (Porcine) 5,000 unit 07/03/20 22:00 07/06/20 06:13 Heparin 5,000 Unit/1 Ml Vial SUB-Q 5,000 unit Q8HR CONNOR Administration Hydrophilic Ointment 1 applic 06/17/20 22:52 07/02/20 20:45 Lip Therapy Vaseline TP 1 applic Q2HR PRN Administration Dry Lips Norepinephrine 4 mg in 250 mls @ 7.5 mls/hr 06/18/20 00:00 07/04/20 14:45 Levophed Drip 4 Mg/Ns 250 Ml IV 0 mcg/min TITR CONNOR 0 mls/hr Titration Protocol 2 MCG/MIN Propofol 1,000 mg in 100 mls @ 3.402 mls/hr 06/18/20 01:00 07/06/20 07:33 Diprivan 10 Mg/Ml IV 15 mcg/kg/min TITR CONNOR 10.206 mls/hr Administration Protocol 5 MCG/KG/MIN Fentanyl Citrate 2,000 mcg in 100 mls @ 5.67 mls/hr 06/18/20 02:00 07/06/20 07:33 Fentanyl Drip Premix IV 3 mcg/kg/hr TITR CONNOR 17.01 mls/hr Administration Protocol 1 MCG/KG/HR Sodium Chloride 500 mls @ 1 mls/hr 06/18/20 09:38 06/19/20 21:37 Nacl 0.9% 500 Ml IV 0 mls/hr DIRECT PRN Infusion ARTERIAL LINE FLUSH Amiodarone HCl 900 mg/ 500 mls @ 33.333 mls/hr 06/28/20 15:00 07/06/20 04:20 Dextrose IV 0.5 mg/min DIRECT CONNOR 16.667 mls/hr Administration Protocol 1 MG/MIN Sodium Chloride 100 mls @ 999 mls/hr 07/03/20 11:11 Nacl 0.9% IV PAM PRN Hypotension Insulin Human Regular 0 units 06/18/20 12:00 07/06/20 07:57 Insulin Regular, Human 100 Units/1 Ml SUB-Q Not Given Q6HR [facility] Protocol Metoclopramide HCl 10 mg 06/28/20 13:00 07/06/20 06:04 Metoclopramide 10 Mg/2 Ml Inj IV 10 mg Q8H CONNOR Administration Multi-Ingred Cream/Lotion/Oil/Oint 1 applic 06/17/20 22:52 Mineral Oil/Petrolatum, White Ophth Oint 3.5 Gm OU Q4HR PRN Dry Eye(s) Ondansetron HCl 4 mg 06/17/20 14:17 Ondansetron 4 Mg/2 Ml Inj IV Q8H PRN Nausea And Vomiting Polyethylene Glycol 17 gm 06/23/20 15:00 07/06/20 10:08 Polyethylene Glycol 3350 17 Gm Powder PO 17 gm QDAY CONNOR Administration Quetiapine Fumarate 200 mg 06/28/20 13:00 07/06/20 10:08 Quetiapine 200 Mg Tab PO 200 mg BID CONNOR Administration Simple Syrup 15 ml 06/19/20 12:15 Simple Syrup 15 Ml FEEDTUBE PRN PRN Hypoglycemia Simple Syrup 30 ml 06/19/20 12:15 Simple Syrup 15 Ml FEEDTUBE PRN PRN Hypoglycemia Sodium Bicarbonate 325 mg 06/19/20 12:15 Sodium Bicarbonate 325 Mg Tab FEEDTUBE PRN PRN For Clogged Feeding Tube Sodium Bicarbonate 650 mg 07/04/20 10:00 07/06/20 10:08 Sodium Bicarbonate 650 Mg Tab PO 650 mg TID CONNOR Administration Sodium Chloride 10 ml 06/17/20 22:00 07/06/20 10:09 Sodium Chloride 0.9% 10 Ml Flush Syringe IV 10 ml BID CONNOR Administration Sodium Chloride 10 ml 06/17/20 14:17 Sodium Chloride 0.9% 10 Ml Flush Syringe IV PRN PRN LINE FLUSH Sodium Polystyrene Sulfonate 15 gm 07/03/20 11:19 07/05/20 10:36 Sodium Polystyrene 15 Gm/60 Ml Oral Liqd PO 15 gm Q6HR PRN Administration Hyperkalemia Zinc Sulfate 220 mg 06/17/20 22:00 07/06/20 10:08 Zinc Sulfate 220 Mg Cap PO 220 mg BID CONNOR Administration
--- NOTE | 2020-07-06 11:45 | Progress Note ---
Assessment and Plan Acute hypoxemic respiratory failure due to COVID-19 Severe COVID infection Severe Sepsis with shock Bilateral pneumonia Acute kidney injury (GIRISH) with acute tubular necrosis (ATN) Elevated liver enzymes Obesity - repeat CXR in am - therapeutic anticoagulation remains on hold - s/p HD/UF today - keep peep at 14 - complete dexamethasone dosing re: worsening acidosis & continued positive status while trending serum inflamatory markers - continue care as below otherwise; - continue daily SAT's & SBT's as tolerated - continue tube feeds and advance to goal rate as tolerated - continue HD/UF per nephrology team for toxin and volume clearance - continue bowel regimen - rate control per cardiology team for afib RVR - Continue to wean supplemental oxygen for O2 sats >92% - Monitor blood pressure closely while optimizing sedation,wean vasopressor support for MAP > 65 mmHg - Critical care prone positioning - VAP bundle addressed, aspiration precautions HOB >40 - continue lung protective strategies, permissive hypercapnic acceptable. - continue bronchodilators with pulmonary hygiene per RT - wean per pulmonary driven protocols otherwise - accuchecks with glycemic control per SSI (While critically ill target blood g lucose of 140-180 mg/dL; avoid hypoglycemia) - sedation prn for target RASS -1 to -2 - continue enteral nutritional support at goal rate as tolerated - s/p antibiotics per ID recommendations - Monitor liver function test ,avoid hepatotoxic agents - azotemia per nephrology rec's - Avoid nephrotoxins, renally dose all medications, conservative fluid management - continue to avoid benzodiazepines, reduce the possibility of delirium, - prn analgesia per CPOT score - Maintenance of sleep-wake cycle, avoid delirium - Stress ulcer prophylaxis, Famotidine - PT/OT/ROM exercises - Mobility protocols for pressure ulcer prevention - CXR, ABG in am - CBC, CMP in am - Supportive transfusions to keep HgB >7g/dL - Monitor hemodynamics closely - continue other care per attending / other consultants COVID SPECIFIC INTERVENTIONS - continue steroids: Dexamethasone - continue with Remdesivir - monitor inflammatory markers - ferritin, D-dimer, CRP, LDH per facility protocol - continue anticoagulation per System Protocol based on d-dimer - continue contact and airborne isolation CONDITION: CRITICAL PROGNOSIS: GUARDED CODE STATUS: FULL CODE The high probability of a clinically significant, sudden or life-threatening deterioration of the [respiratory, cardiovascular, hematologic & neurologic] system(s) required my full and direct attention, intervention and personal management. The aggregate critical care time was [32] minutes without overlap. Time includes spent on; [x] Data Review and interpretation [x] Patient assessment and monitoring of vital signs [x] Documentation [x] Medication orders and management He was evaluated in the context of the global COVID-19 pandemic, which necessitated consideration that the patient might be at risk for infection with the virus that causes COVID-19. Institutional protocols and algorithms that pertain to the evaluation of patients at risk for COVID-19 are in a state of rapid change based on information released by regulatory bodies including the CDC and federal and state organizations. These policies and algorithms were followed during the patient's care in the ICU Please note that these policies, procedures and recommendations changed on a rapid basis. Subjective Date of service: 07/06/20 Principal diagnosis: ARF/Septic Shock/COVID-19 PNA, AF with RVR Interval history: Patient is seen today for: Ac hypoxemic respiratory failure; COVID-19; Severe Sepsis with shock; Zackery. pneumonia; GIRISH; Elevated liver enzymes; Obesity Seen and examined at bedside; 24hour events reviewed; nursing and respiratory care staff consulted; no adverse overnight events reported to me; resting in bed; remains on MVS; still dialysis dependent and oliguric; no significant impr ovement in oxygenation overnight; no emesis or overt aspiration Objective Vital Signs - 12hr 07/05/20 07/06/20 07/06/20 23:45 00:00 00:15 Temperature 99.2 F Pulse Rate 95 H 101 H 95 H Pulse Rate [ 92 H Right Dorsalis Pedis] Respiratory 20 25 H 17 Rate Blood Pressure 119/57 114/59 123/55 O2 Sat by Pulse 96 94 90 Oximetry 07/06/20 07/06/20 07/06/20 00:20 00:21 00:30 Temperature Pulse Rate 104 H 99 H 105 H Pulse Rate [ Right Dorsalis Pedis] Respiratory 18 Rate Blood Pressure 123/55 123/55 127/57 O2 Sat by Pulse 96 95 Oximetry 07/06/20 07/06/20 07/06/20 00:45 01:00 01:15 Temperature Pulse Rate 103 H 146 H 104 H Pulse Rate [ Right Dorsalis Pedis] Respiratory 19 29 H 35 H Rate Blood Pressure 123/59 125/55 130/53 O2 Sat by Pulse 96 96 96 Oximetry 07/06/20 07/06/20 07/06/20 01:30 01:46 02:00 Temperature Pulse Rate 103 H 107 H 96 H Pulse Rate [ Right Dorsalis Pedis] Respiratory 20 22 19 Rate Blood Pressure 127/58 118/52 121/48 O2 Sat by Pulse 96 95 96 Oximetry 07/06/20 07/06/20 07/06/20 02:15 02:30 02:45 Temperature Pulse Rate 99 H 98 H 103 H Pulse Rate [ Right Dorsalis Pedis] Respiratory 17 26 H 23 Rate Blood Pressure 116/51 112/52 101/56 O2 Sat by Pulse 96 96 96 Oximetry 07/06/20 07/06/20 07/06/20 03:00 03:15 03:30 Temperature Pulse Rate 97 H 103 H 94 H Pulse Rate [ Right Dorsalis Pedis] Respiratory 15 12 13 Rate Blood Pressure 116/50 111/51 103/50 O2 Sat by Pulse 96 96 97 Oximetry 07/06/20 07/06/20 07/06/20 03:45 04:00 04:15 Temperature 98.5 F Pulse Rate 91 H 106 H 101 H Pulse Rate [ 92 H Right Dorsalis Pedis] Respiratory 15 13 14 Rate Blood Pressure 109/48 111/49 101/49 O2 Sat by Pulse 96 97 96 Oximetry 07/06/20 07/06/20 07/06/20 04:29 04:30 04:45 Temperature Pulse Rate 94 H 96 H 105 H Pulse Rate [ Right Dorsalis Pedis] Respiratory 15 13 Rate Blood Pressure 101/49 98/46 98/50 O2 Sat by Pulse 96 97 97 Oximetry 07/06/20 07/06/20 07/06/20 05:00 05:15 05:30 Temperature Pulse Rate 105 H 101 H 86 Pulse Rate [ Right Dorsalis Pedis] Respiratory 14 14 13 Rate Blood Pressure 92/53 98/53 109/49 O2 Sat by Pulse 97 97 97 Oximetry 07/06/20 07/06/20 07/06/20 05:45 06:00 06:04 Temperature Pulse Rate 89 115 H 103 H Pulse Rate [ Right Dorsalis Pedis] Respiratory 14 12 Rate Blood Pressure 109/48 117/54 117/54 O2 Sat by Pulse 97 96 Oximetry 07/06/20 07/06/20 07/06/20 06:16 08:00 08:51 Temperature 98.4 F Pulse Rate 92 H 105 H Pulse Rate [ 94 H Right Dorsalis Pedis] Respiratory 19 Rate Blood Pressure 123/49 120/52 O2 Sat by Pulse 97 93 Oximetry Constitutional: appears uncomfortable, other (morbidly obese, atraumatic, normoc ephalic, mild resp distress, orally intuabted) Eyes: non-icteric ENT: oropharynx moist, other (ETT 24 cm TROY' + blood crusted lips) Neck: supple, no lymphadenopathy, other (Large , short neck) Effort: mildly labored Ascultation: Bilateral: diminished breath sounds, rhonchi (scant) Percussion: Bilateral: not dull Cardiovascular: irregular rhythm, other (S1,S2) Gastrointestinal: normoactive bowel sounds, non-distended (protuberant), other (OG Tube) Integumentary: rash, other (Femoral CVC, Newell catheter) Extremities: no edema, pink and warm, pulses normal, no ischemia or petechiae, edema (trace to 1+) Neurologic: non-focal exam (grossly), pupils equal and round, other (unable to assess, sedated) Psychiatric: other (unable to assess, sedated) CBC and BMP: 07/07/20 05:04 07/07/20 10:17 ABG, PT/INR, D-dimer: ABG ABG pH 7.291 (7.320-7.450) L 07/06/20 04:29 POC ABG pCO2 51.3 mmHg (32.0-48.0) H 07/06/20 04:29 ABG pCO2 56.4 mm Hg 07/05/20 04:30 POC ABG pO2 93.1 mmHg (83-108) 07/06/20 04:29 ABG pO2 151.9 mm Hg (80.0-90.0) H 07/05/20 04:30 POC ABG HCO3 24.2 07/06/20 04:29 ABG O2 Saturation 98.7 % (95.0-99.0) 07/05/20 04:30 PT/INR, D-dimer PT 17.4 Sec. (12.2-14.9) H 06/26/20 05:47 INR 1.44 (0.87-1.13) H 06/26/20 05:47 D-Dimer 6608.00 ng/mlDDU (0-234) H 07/03/20 14:50 Abnormal lab findings: Abnormal Labs 06/17/20 06/17/20 06/17/20 12:33 12:33 12:33 WBC 19.5 H RBC 5.18 H Hgb 15.5 H Hct RDW Lymph % (Auto) 3.8 L Lymph # (Auto) 0.7 L Curry # (Auto) Seg Neutrophils % Seg Neuts % (Manual) 99.0 H Lymphocytes % (Manual) 1.0 L Nucleated RBC % Seg Neutrophils # 18.2 H Seg Neutrophils # Man 19.3 H Lymphocytes # (Manual) 0.2 L Monocytes # (Manual) PT 16.5 H INR 1.33 H APTT D-Dimer 1025.04 H Heparin Anti-Xa Level ABG pH POC ABG pCO2 POC ABG pO2 ABG pO2 ABG HCO3 ABG Hemoglobin ABG Oxyhemoglobin ABG Sodium ABG Potassium ABG Chloride ABG Glucose Carboxyhemoglobin Sodium 130 L Potassium 3.4 L Chloride 95.0 L Carbon Dioxide BUN 21 H Creatinine Glucose 137 H POC Glucose Lactic Acid Calcium 7.9 L Phosphorus Magnesium Ferritin Direct Bilirubin AST 84 H ALT 67 H Lactate Dehydrogenase 437 H Total Creatine Kinase 310 H C-Reactive Protein 27.90 H Total Protein Albumin 2.9 L Triglycerides Arterial Blood Glucose Arterial Blood Ionized Calcium Urine Creatinine Urine Chloride Vancomycin Trough Coronavirus (PCR) Crossmatch 06/17/20 06/17/20 06/17/20 12:33 12:33 14:48 WBC RBC Hgb Hct RDW Lymph % (Auto) Lymph # (Auto) Curry # (Auto) Seg Neutrophils % Seg Neuts % (Manual) Lymphocytes % (Manual) Nucleated RBC % Seg Neutrophils # Seg Neutrophils # Man Lymphocytes # (Manual) Monocytes # (Manual) PT INR APTT D-Dimer Heparin Anti-Xa Level ABG pH POC ABG pCO2 POC ABG pO2 ABG pO2 ABG HCO3 ABG Hemoglobin ABG Oxyhemoglobin ABG Sodium ABG Potassium ABG Chloride ABG Glucose Carboxyhemoglobin Sodium Potassium Chloride Carbon Dioxide BUN Creatinine Glucose POC Glucose Lactic Acid 2.50 H* 2.20 H* Calcium Phosphorus Magnesium Ferritin 2297.0 H Direct Bilirubin AST ALT Lactate Dehydrogenase Total Creatine Kinase C-Reactive Protein Total Protein Albumin Triglycerides Arterial Blood Glucose Arterial Blood Ionized Calcium Urine Creatinine Urine Chloride Vancomycin Trough Coronavirus (PCR) Crossmatch 06/17/20 06/17/20 06/17/20 14:48 14:48 14:48 WBC RBC Hgb Hct RDW Lymph % (Auto) Lymph # (Auto) Curry # (Auto) Seg Neutrophils % Seg Neuts % (Manual) Lymphocytes % (Manual) Nucleated RBC % Seg Neutrophils # Seg Neutrophils # Man Lymphocytes # (Manual) Monocytes # (Manual) PT INR APTT D-Dimer 939.89 H Heparin Anti-Xa Level ABG pH POC ABG pCO2 POC ABG pO2 ABG pO2 ABG HCO3 ABG Hemoglobin ABG Oxyhemoglobin ABG Sodium ABG Potassium ABG Chloride ABG Glucose Carboxyhemoglobin Sodium Potassium Chloride Carbon Dioxide BUN Creatinine Glucose 141 H POC Glucose Lactic Acid Calcium Phosphorus Magnesium Ferritin > 2000.0 H Direct Bilirubin AST ALT Lactate Dehydrogenase 503 H Total Creatine Kinase C-Reactive Protein 24.70 H Total Protein Albumin Triglycerides Arterial Blood Glucose Arterial Blood Ionized Calcium Urine Creatinine Urine Chloride Vancomycin Trough Coronavirus (PCR) Crossmatch 06/17/20 06/17/20 06/17/20 16:54 19:39 23:43 WBC RBC Hgb Hct RDW Lymph % (Auto) Lymph # (Auto) Curry # (Auto) Seg Neutrophils % Seg Neuts % (Manual) Lymphocytes % (Manual) Nucleated RBC % Seg Neutrophils # Seg Neutrophils # Man Lymphocytes # (Manual) Monocytes # (Manual) PT INR APTT D-Dimer Heparin Anti-Xa Level ABG pH 7.571 H POC ABG pCO2 24.3 L POC ABG pO2 41.6 L ABG pO2 ABG HCO3 ABG Hemoglobin ABG Oxyhemoglobin 84.0 L ABG Sodium 131.0 L ABG Potassium ABG Chloride ABG Glucose 163 H Carboxyhemoglobin Sodium Potassium Chloride Carbon Dioxide BUN Creatinine Glucose POC Glucose 185 H Lactic Acid 2.10 H* Calcium Phosphorus Magnesium Ferritin Direct Bilirubin AST ALT Lactate Dehydrogenase Total Creatine Kinase C-Reactive Protein Total Protein Albumin Triglycerides Arterial Blood Glucose 163 H Arterial Blood Ionized Calcium 4.4 L Urine Creatinine Urine Chloride Vancomycin Trough Coronavirus (PCR) Crossmatch 06/18/20 06/18/20 06/18/20 00:17 00:23 03:55 WBC RBC Hgb Hct RDW Lymph % (Auto) Lymph # (Auto) Curry # (Auto) Seg Neutrophils % Seg Neuts % (Manual) Lymphocytes % (Manual) Nucleated RBC % Seg Neutrophils # Seg Neutrophils # Man Lymphocytes # (Manual) Monocytes # (Manual) PT INR APTT D-Dimer Heparin Anti-Xa Level ABG pH POC ABG pCO2 POC ABG pO2 56.5 L 48.3 L ABG pO2 ABG HCO3 ABG Hemoglobin ABG Oxyhemoglobin 86.3 L 81.7 L ABG Sodium 132.9 L 131.0 L ABG Potassium ABG Chloride ABG Glucose 189 H 161 H Carboxyhemoglobin 0.4 L Sodium Potassium Chloride Carbon Dioxide BUN Creatinine Glucose POC Glucose Lactic Acid 3.80 H* Calcium Phosphorus Magnesium Ferritin Direct Bilirubin AST ALT Lactate Dehydrogenase Total Creatine Kinase C-Reactive Protein Total Protein Albumin Triglycerides Arterial Blood Glucose 189 H 161 H Arterial Blood Ionized Calcium 4.3 L 4.2 L Urine Creatinine Urine Chloride Vancomycin Trough Coronavirus (PCR) Crossmatch 06/18/20 06/18/20 06/18/20 05:39 05:39 05:39 WBC 26.2 H RBC Hgb Hct RDW Lymph % (Auto) Lymph # (Auto) Curry # (Auto) Seg Neutrophils % Seg Neuts % (Manual) 90.0 H Lymphocytes % (Manual) 5.0 L Nucleated RBC % Seg Neutrophils # Seg Neutrophils # Man 23.6 H Lymphocytes # (Manual) Monocytes # (Manual) 1.3 H PT INR APTT D-Dimer Heparin Anti-Xa Level ABG pH POC ABG pCO2 POC ABG pO2 ABG pO2 ABG HCO3 ABG Hemoglobin ABG Oxyhemoglobin ABG Sodium ABG Potassium ABG Chloride ABG Glucose Carboxyhemoglobin Sodium 135 L Potassium Chloride 97.5 L Carbon Dioxide 21 L BUN 39 H Creatinine 1.7 H D Glucose 168 H POC Glucose Lactic Acid 3.40 H* Calcium 7.2 L Phosphorus Magnesium Ferritin Direct Bilirubin AST ALT Lactate Dehydrogenase Total Creatine Kinase C-Reactive Protein Total Protein Albumin Triglycerides Arterial Blood Glucose Arterial Blood Ionized Calcium Urine Creatinine Urine Chloride Vancomycin Trough Coronavirus (PCR) Crossmatch 06/18/20 06/18/20 06/18/20 07:24 09:00 10:10 WBC RBC Hgb Hct RDW Lymph % (Auto) Lymph # (Auto) Curry # (Auto) Seg Neutrophils % Seg Neuts % (Manual) Lymphocytes % (Manual) Nucleated RBC % Seg Neutrophils # Seg Neutrophils # Man Lymphocytes # (Manual) Monocytes # (Manual) PT INR APTT D-Dimer Heparin Anti-Xa Level ABG pH POC ABG pCO2 POC ABG pO2 ABG pO2 ABG HCO3 ABG Hemoglobin ABG Oxyhemoglobin ABG Sodium ABG Potassium ABG Chloride ABG Glucose Carboxyhemoglobin Sodium Potassium Chloride Carbon Dioxide BUN Creatinine Glucose POC Glucose Lactic Acid 2.90 H* 3.20 H* Calcium Phosphorus Magnesium Ferritin Direct Bilirubin AST ALT Lactate Dehydrogenase Total Creatine Kinase C-Reactive Protein Total Protein Albumin Triglycerides Arterial Blood Glucose Arterial Blood Ionized Calcium Urine Creatinine Urine Chloride Vancomycin Trough Coronavirus (PCR) Positive A Crossmatch 06/18/20 06/18/20 06/18/20 11:58 14:43 15:00 WBC RBC Hgb Hct RDW Lymph % (Auto) Lymph # (Auto) Curry # (Auto) Seg Neutrophils % Seg Neuts % (Manual) Lymphocytes % (Manual) Nucleated RBC % Seg Neutrophils # Seg Neutrophils # Man Lymphocytes # (Manual) Monocytes # (Manual) PT INR APTT D-Dimer Heparin Anti-Xa Level ABG pH 7.303 L POC ABG pCO2 POC ABG pO2 82.3 L ABG pO2 ABG HCO3 ABG Hemoglobin ABG Oxyhemoglobin ABG Sodium 135.3 L ABG Potassium ABG Chloride ABG Glucose 215 H Carboxyhemoglobin 0.3 L Sodium Potassium Chloride Carbon Dioxide BUN Creatinine Glucose POC Glucose 209 H Lactic Acid Calcium Phosphorus Magnesium Ferritin Direct Bilirubin AST ALT Lactate Dehydrogenase Total Creatine Kinase C-Reactive Protein Total Protein Albumin Triglycerides Arterial Blood Glucose 215 H Arterial Blood Ionized Calcium 4.2 L Urine Creatinine 192.4 H Urine Chloride 31.1 L Vancomycin Trough Coronavirus (PCR) Crossmatch 06/18/20 06/18/20 06/18/20 17:16 19:44 20:33 WBC RBC Hgb Hct RDW Lymph % (Auto) Lymph # (Auto) Curry # (Auto) Seg Neutrophils % Seg Neuts % (Manual) Lymphocytes % (Manual) Nucleated RBC % Seg Neutrophils # Seg Neutrophils # Man Lymphocytes # (Manual) Monocytes # (Manual) PT INR APTT D-Dimer Heparin Anti-Xa Level ABG pH POC ABG pCO2 POC ABG pO2 ABG pO2 ABG HCO3 ABG Hemoglobin ABG Oxyhemoglobin ABG Sodium ABG Potassium ABG Chloride ABG Glucose Carboxyhemoglobin Sodium Potassium Chloride Carbon Dioxide BUN Creatinine Glucose POC Glucose 182 H Lactic Acid 3.00 H* Calcium Phosphorus Magnesium 2.70 H Ferritin Direct Bilirubin AST ALT Lactate Dehydrogenase Total Creatine Kinase C-Reactive Protein Total Protein Albumin Triglycerides Arterial Blood Glucose Arterial Blood Ionized Calcium Urine Creatinine Urine Chloride Vancomycin Trough Coronavirus (PCR) Crossmatch 06/18/20 06/19/20 06/19/20 23:43 04:00 04:00 WBC 31.6 H RBC Hgb Hct RDW Lymph % (Auto) Lymph # (Auto) Curry # (Auto) Seg Neutrophils % Seg Neuts % (Manual) 98.0 H Lymphocytes % (Manual) 0.5 L Nucleated RBC % Seg Neutrophils # Seg Neutrophils # Man 31.0 H Lymphocytes # (Manual) 0.2 L Monocytes # (Manual) PT INR APTT D-Dimer Heparin Anti-Xa Level ABG pH POC ABG pCO2 POC ABG pO2 ABG pO2 ABG HCO3 ABG Hemoglobin ABG Oxyhemoglobin ABG Sodium ABG Potassium ABG Chloride ABG Glucose Carboxyhemoglobin Sodium Potassium Chloride Carbon Dioxide BUN 56 H Creatinine 1.6 H Glucose 176 H POC Glucose 149 H Lactic Acid Calcium 7.0 L Phosphorus Magnesium Ferritin Direct Bilirubin AST 244 H ALT 159 H Lactate Dehydrogenase Total Creatine Kinase C-Reactive Protein Total Protein 4.9 L D Albumin 2.5 L Triglycerides Arterial Blood Glucose Arterial Blood Ionized Calcium Urine Creatinine Urine Chloride Vancomycin Trough Coronavirus (PCR) Crossmatch 06/19/20 06/19/20 06/19/20 04:00 05:44 11:42 WBC RBC Hgb Hct RDW Lymph % (Auto) Lymph # (Auto) Curry # (Auto) Seg Neutrophils % Seg Neuts % (Manual) Lymphocytes % (Manual) Nucleated RBC % Seg Neutrophils # Seg Neutrophils # Man Lymphocytes # (Manual) Monocytes # (Manual) PT INR APTT D-Dimer Heparin Anti-Xa Level ABG pH 7.265 L POC ABG pCO2 51.8 H POC ABG pO2 65.1 L ABG pO2 ABG HCO3 ABG Hemoglobin ABG Oxyhemoglobin ABG Sodium ABG Potassium ABG Chloride ABG Glucose 184 H Carboxyhemoglobin Sodium Potassium Chloride Carbon Dioxide BUN Creatinine Glucose POC Glucose 156 H 191 H Lactic Acid Calcium Phosphorus Magnesium Ferritin Direct Bilirubin AST ALT Lactate Dehydrogenase Total Creatine Kinase C-Reactive Protein Total Protein Albumin Triglycerides Arterial Blood Glucose 184 H Arterial Blood Ionized Calcium 4.3 L Urine Creatinine Urine Chloride Vancomycin Trough Coronavirus (PCR) Crossmatch 06/19/20 06/19/20 06/19/20 12:30 17:16 18:36 WBC RBC Hgb Hct RDW Lymph % (Auto) Lymph # (Auto) Curry # (Auto) Seg Neutrophils % Seg Neuts % (Manual) Lymphocytes % (Manual) Nucleated RBC % Seg Neutrophils # Seg Neutrophils # Man Lymphocytes # (Manual) Monocytes # (Manual) PT 16.4 H INR 1.32 H APTT D-Dimer Heparin Anti-Xa Level ABG pH 7.088 L POC ABG pCO2 78.1 H POC ABG pO2 208.3 H ABG pO2 ABG HCO3 ABG Hemoglobin ABG Oxyhemoglobin 98.3 H ABG Sodium ABG Potassium 5.0 H ABG Chloride ABG Glucose 182 H Carboxyhemoglobin 0.4 L Sodium Potassium Chloride Carbon Dioxide BUN Creatinine Glucose POC Glucose 154 H Lactic Acid Calcium Phosphorus Magnesium Ferritin Direct Bilirubin AST ALT Lactate Dehydrogenase Total Creatine Kinase C-Reactive Protein Total Protein Albumin Triglycerides Arterial Blood Glucose 182 H Arterial Blood Ionized Calcium 4.3 L Urine Creatinine Urine Chloride Vancomycin Trough Coronavirus (PCR) Crossmatch 06/19/20 06/20/20 06/20/20 23:32 03:00 05:19 WBC RBC Hgb Hct RDW Lymph % (Auto) Lymph # (Auto) Curry # (Auto) Seg Neutrophils % Seg Neuts % (Manual) Lymphocytes % (Manual) Nucleated RBC % Seg Neutrophils # Seg Neutrophils # Man Lymphocytes # (Manual) Monocytes # (Manual) PT INR APTT D-Dimer Heparin Anti-Xa Level 0.77 H ABG pH POC ABG pCO2 POC ABG pO2 ABG pO2 ABG HCO3 ABG Hemoglobin ABG Oxyhemoglobin ABG Sodium ABG Potassium ABG Chloride ABG Glucose Carboxyhemoglobin Sodium Potassium Chloride Carbon Dioxide BUN Creatinine Glucose POC Glucose 201 H 190 H Lactic Acid Calcium Phosphorus Magnesium Ferritin Direct Bilirubin AST ALT Lactate Dehydrogenase Total Creatine Kinase C-Reactive Protein Total Protein Albumin Triglycerides Arterial Blood Glucose Arterial Blood Ionized Calcium Urine Creatinine Urine Chloride Vancomycin Trough Coronavirus (PCR) Crossmatch 06/20/20 06/20/20 06/20/20 08:25 08:25 11:36 WBC RBC Hgb Hct RDW Lymph % (Auto) Lymph # (Auto) Curry # (Auto) Seg Neutrophils % Seg Neuts % (Manual) Lymphocytes % (Manual) Nucleated RBC % Seg Neutrophils # Seg Neutrophils # Man Lymphocytes # (Manual) Monocytes # (Manual) PT INR APTT D-Dimer Heparin Anti-Xa Level ABG pH POC ABG pCO2 POC ABG pO2 ABG pO2 ABG HCO3 ABG Hemoglobin ABG Oxyhemoglobin ABG Sodium ABG Potassium ABG Chloride ABG Glucose Carboxyhemoglobin Sodium 135 L Potassium 5.4 H Chloride 109.2 H Carbon Dioxide 19 L BUN 68 H Creatinine 2.5 H D Glucose 201 H POC Glucose 184 H Lactic Acid Calcium 5.5 L* D Phosphorus Magnesium Ferritin Direct Bilirubin AST 123 H ALT 86 H Lactate Dehydrogenase Total Creatine Kinase C-Reactive Protein Total Protein 4.6 L Albumin 1.5 L Triglycerides Arterial Blood Glucose Arterial Blood Ionized Calcium Urine Creatinine Urine Chloride Vancomycin Trough 22.7 H Coronavirus (PCR) Crossmatch 06/20/20 06/20/20 06/20/20 11:40 17:28 20:00 WBC RBC Hgb Hct RDW Lymph % (Auto) Lymph # (Auto) Curry # (Auto) Seg Neutrophils % Seg Neuts % (Manual) Lymphocytes % (Manual) Nucleated RBC % Seg Neutrophils # Seg Neutrophils # Man Lymphocytes # (Manual) Monocytes # (Manual) PT INR APTT D-Dimer Heparin Anti-Xa Level 0.89 H ABG pH 7.099 L POC ABG pCO2 61.1 H POC ABG pO2 ABG pO2 ABG HCO3 ABG Hemoglobin ABG Oxyhemoglobin ABG Sodium ABG Potassium 5.0 H ABG Chloride 111.0 H ABG Glucose 200 H Carboxyhemoglobin 0.4 L Sodium Potassium Chloride Carbon Dioxide BUN Creatinine Glucose POC Glucose 165 H Lactic Acid Calcium Phosphorus Magnesium Ferritin Direct Bilirubin AST ALT Lactate Dehydrogenase Total Creatine Kinase C-Reactive Protein Total Protein Albumin Triglycerides Arterial Blood Glucose 200 H Arterial Blood Ionized Calcium 4.2 L Urine Creatinine Urine Chloride Vancomycin Trough Coronavirus (PCR) Crossmatch 06/20/20 06/21/20 06/21/20 23:29 05:00 05:20 WBC RBC Hgb Hct RDW Lymph % (Auto) Lymph # (Auto) Curry # (Auto) Seg Neutrophils % Seg Neuts % (Manual) Lymphocytes % (Manual) Nucleated RBC % Seg Neutrophils # Seg Neutrophils # Man Lymphocytes # (Manual) Monocytes # (Manual) PT INR APTT D-Dimer Heparin Anti-Xa Level ABG pH POC ABG pCO2 POC ABG pO2 ABG pO2 ABG HCO3 ABG Hemoglobin ABG Oxyhemoglobin ABG Sodium ABG Potassium ABG Chloride ABG Glucose Carboxyhemoglobin Sodium Potassium Chloride 112.0 H Carbon Dioxide 20 L BUN 92 H Creatinine 3.9 H D Glucose 214 H POC Glucose 145 H 191 H Lactic Acid Calcium 6.5 L D Phosphorus Magnesium Ferritin Direct Bilirubin AST 98 H ALT 84 H Lactate Dehydrogenase Total Creatine Kinase C-Reactive Protein Total Protein 4.6 L Albumin 2.1 L Triglycerides 180 H Arterial Blood Glucose Arterial Blood Ionized Calcium Urine Creatinine Urine Chloride Vancomycin Trough Coronavirus (PCR) Crossmatch 06/21/20 06/21/20 06/21/20 08:56 11:12 12:43 WBC RBC Hgb Hct RDW Lymph % (Auto) Lymph # (Auto) Curry # (Auto) Seg Neutrophils % Seg Neuts % (Manual) Lymphocytes % (Manual) Nucleated RBC % Seg Neutrophils # Seg Neutrophils # Man Lymphocytes # (Manual) Monocytes # (Manual) PT INR APTT D-Dimer Heparin Anti-Xa Level 0.28 L ABG pH 7.184 L POC ABG pCO2 48.3 H POC ABG pO2 172.1 H ABG pO2 ABG HCO3 ABG Hemoglobin ABG Oxyhemoglobin 98.7 H ABG Sodium ABG Potassium 4.9 H ABG Chloride 112.0 H ABG Glucose 196 H Carboxyhemoglobin 0.2 L Sodium Potassium Chloride Carbon Dioxide BUN Creatinine Glucose POC Glucose 177 H Lactic Acid Calcium Phosphorus Magnesium Ferritin Direct Bilirubin AST ALT Lactate Dehydrogenase Total Creatine Kinase C-Reactive Protein Total Protein Albumin Triglycerides Arterial Blood Glucose 196 H Arterial Blood Ionized Calcium 4.1 L Urine Creatinine Urine Chloride Vancomycin Trough Coronavirus (PCR) Crossmatch 06/21/20 06/21/20 06/22/20 16:31 Unknown 00:12 WBC RBC Hgb Hct RDW Lymph % (Auto) Lymph # (Auto) Curry # (Auto) Seg Neutrophils % Seg Neuts % (Manual) Lymphocytes % (Manual) Nucleated RBC % Seg Neutrophils # Seg Neutrophils # Man Lymphocytes # (Manual) Monocytes # (Manual) PT INR APTT D-Dimer Heparin Anti-Xa Level 0.78 H ABG pH POC ABG pCO2 POC ABG pO2 ABG pO2 ABG HCO3 ABG Hemoglobin ABG Oxyhemoglobin ABG Sodium ABG Potassium ABG Chloride ABG Glucose Carboxyhemoglobin Sodium Potassium Chloride Carbon Dioxide BUN Creatinine Glucose POC Glucose 150 H 173 H Lactic Acid Calcium Phosphorus Magnesium Ferritin Direct Bilirubin AST ALT Lactate Dehydrogenase Total Creatine Kinase C-Reactive Protein Total Protein Albumin Triglycerides Arterial Blood Glucose Arterial Blood Ionized Calcium Urine Creatinine Urine Chloride Vancomycin Trough Coronavirus (PCR) Crossmatch 06/22/20 06/22/20 06/22/20 04:00 05:04 05:30 WBC 33.9 H RBC Hgb 11.7 L Hct 35.2 L RDW 15.8 H Lymph % (Auto) Lymph # (Auto) Curry # (Auto) Seg Neutrophils % Seg Neuts % (Manual) 93.0 H Lymphocytes % (Manual) 5.0 L Nucleated RBC % Seg Neutrophils # Seg Neutrophils # Man 31.5 H Lymphocytes # (Manual) Monocytes # (Manual) PT INR APTT D-Dimer Heparin Anti-Xa Level ABG pH 7.169 L POC ABG pCO2 POC ABG pO2 ABG pO2 ABG HCO3 ABG Hemoglobin ABG Oxyhemoglobin ABG Sodium ABG Potassium 5.1 H ABG Chloride 112.0 H ABG Glucose 186 H Carboxyhemoglobin 0.3 L Sodium Potassium Chloride Carbon Dioxide BUN Creatinine Glucose POC Glucose 161 H Lactic Acid Calcium Phosphorus Magnesium Ferritin Direct Bilirubin AST ALT Lactate Dehydrogenase Total Creatine Kinase C-Reactive Protein Total Protein Albumin Triglycerides Arterial Blood Glucose 186 H Arterial Blood Ionized Calcium 4.1 L Urine Creatinine Urine Chloride Vancomycin Trough Coronavirus (PCR) Crossmatch 06/22/20 06/22/20 06/22/20 05:30 11:39 13:27 WBC RBC Hgb Hct RDW Lymph % (Auto) Lymph # (Auto) Curry # (Auto) Seg Neutrophils % Seg Neuts % (Manual) Lymphocytes % (Manual) Nucleated RBC % Seg Neutrophils # Seg Neutrophils # Man Lymphocytes # (Manual) Monocytes # (Manual) PT INR APTT D-Dimer Heparin Anti-Xa Level ABG pH POC ABG pCO2 POC ABG pO2 ABG pO2 ABG HCO3 ABG Hemoglobin ABG Oxyhemoglobin ABG Sodium ABG Potassium ABG Chloride ABG Glucose Carboxyhemoglobin Sodium Potassium 5.7 H Chloride 111.3 H Carbon Dioxide 18 L BUN 112 H Creatinine 5.0 H Glucose 173 H POC Glucose 172 H 176 H Lactic Acid Calcium 6.7 L Phosphorus Magnesium Ferritin Direct Bilirubin AST ALT Lactate Dehydrogenase Total Creatine Kinase C-Reactive Protein Total Protein Albumin Triglycerides Arterial Blood Glucose Arterial Blood Ionized Calcium Urine Creatinine Urine Chloride Vancomycin Trough Coronavirus (PCR) Crossmatch 06/22/20 06/22/20 06/22/20 14:37 17:00 17:40 WBC RBC Hgb Hct RDW Lymph % (Auto) Lymph # (Auto) Curry # (Auto) Seg Neutrophils % Seg Neuts % (Manual) Lymphocytes % (Manual) Nucleated RBC % Seg Neutrophils # Seg Neutrophils # Man Lymphocytes # (Manual) Monocytes # (Manual) PT INR APTT D-Dimer Heparin Anti-Xa Level 1.32 H ABG pH POC ABG pCO2 POC ABG pO2 ABG pO2 ABG HCO3 ABG Hemoglobin ABG Oxyhemoglobin ABG Sodium ABG Potassium ABG Chloride ABG Glucose Carboxyhemoglobin Sodium Potassium Chloride Carbon Dioxide BUN Creatinine Glucose POC Glucose 171 H Lactic Acid Calcium Phosphorus Magnesium Ferritin Direct Bilirubin AST ALT Lactate Dehydrogenase Total Creatine Kinase C-Reactive Protein 5.30 H Total Protein Albumin Triglycerides Arterial Blood Glucose Arterial Blood Ionized Calcium Urine Creatinine Urine Chloride Vancomycin Trough Coronavirus (PCR) Crossmatch 06/22/20 06/23/20 06/23/20 23:36 02:13 02:41 WBC RBC Hgb Hct RDW Lymph % (Auto) Lymph # (Auto) Curry # (Auto) Seg Neutrophils % Seg Neuts % (Manual) Lymphocytes % (Manual) Nucleated RBC % Seg Neutrophils # Seg Neutrophils # Man Lymphocytes # (Manual) Monocytes # (Manual) PT INR APTT D-Dimer Heparin Anti-Xa Level 0.21 L ABG pH 7.318 L POC ABG pCO2 POC ABG pO2 157.5 H ABG pO2 ABG HCO3 ABG Hemoglobin ABG Oxyhemoglobin ABG Sodium 135.6 L ABG Potassium 4.6 H ABG Chloride 110.0 H ABG Glucose 169 H Carboxyhemoglobin Sodium Potassium Chloride Carbon Dioxide BUN Creatinine Glucose POC Glucose 155 H Lactic Acid Calcium Phosphorus Magnesium Ferritin Direct Bilirubin AST ALT Lactate Dehydrogenase Total Creatine Kinase C-Reactive Protein Total Protein Albumin Triglycerides Arterial Blood Glucose 169 H Arterial Blood Ionized Calcium Urine Creatinine Urine Chloride Vancomycin Trough Coronavirus (PCR) Crossmatch 06/23/20 06/23/20 06/23/20 04:00 04:00 05:24 WBC 27.4 H RBC Hgb 11.3 L Hct 33.8 L RDW Lymph % (Auto) Lymph # (Auto) Curry # (Auto) Seg Neutrophils % Seg Neuts % (Manual) 93.0 H Lymphocytes % (Manual) 1.0 L Nucleated RBC % 1.0 H Seg Neutrophils # Seg Neutrophils # Man 25.5 H Lymphocytes # (Manual) 0.3 L Monocytes # (Manual) 1.1 H PT INR APTT D-Dimer Heparin Anti-Xa Level ABG pH POC ABG pCO2 POC ABG pO2 ABG pO2 ABG HCO3 ABG Hemoglobin ABG Oxyhemoglobin ABG Sodium ABG Potassium ABG Chloride ABG Glucose Carboxyhemoglobin Sodium Potassium Chloride 107.6 H Carbon Dioxide 20 L BUN 100 H Creatinine 4.7 H Glucose 168 H POC Glucose 151 H Lactic Acid Calcium Phosphorus Magnesium Ferritin Direct Bilirubin AST ALT Lactate Dehydrogenase Total Creatine Kinase C-Reactive Protein Total Protein Albumin Triglycerides Arterial Blood Glucose Arterial Blood Ionized Calcium Urine Creatinine Urine Chloride Vancomycin Trough Coronavirus (PCR) Crossmatch 06/23/20 06/23/20 06/23/20 11:30 17:18 23:50 WBC RBC Hgb Hct RDW Lymph % (Auto) Lymph # (Auto) Curry # (Auto) Seg Neutrophils % Seg Neuts % (Manual) Lymphocytes % (Manual) Nucleated RBC % Seg Neutrophils # Seg Neutrophils # Man Lymphocytes # (Manual) Monocytes # (Manual) PT INR APTT D-Dimer Heparin Anti-Xa Level ABG pH POC ABG pCO2 POC ABG pO2 ABG pO2 ABG HCO3 ABG Hemoglobin ABG Oxyhemoglobin ABG Sodium ABG Potassium ABG Chloride ABG Glucose Carboxyhemoglobin Sodium Potassium Chloride Carbon Dioxide BUN Creatinine Glucose POC Glucose 157 H 156 H 162 H Lactic Acid Calcium Phosphorus Magnesium Ferritin Direct Bilirubin AST ALT Lactate Dehydrogenase Total Creatine Kinase C-Reactive Protein Total Protein Albumin Triglycerides Arterial Blood Glucose Arterial Blood Ionized Calcium Urine Creatinine Urine Chloride Vancomycin Trough Coronavirus (PCR) Crossmatch 06/24/20 06/24/20 06/24/20 04:41 05:57 06:30 WBC 34.3 H RBC Hgb 10.9 L Hct 32.6 L RDW Lymph % (Auto) 2.0 L Lymph # (Auto) 0.7 L Curry # (Auto) 1.2 H Seg Neutrophils % Seg Neuts % (Manual) 96.0 H Lymphocytes % (Manual) 3.0 L Nucleated RBC % Seg Neutrophils # 32.3 H Seg Neutrophils # Man 32.9 H Lymphocytes # (Manual) 1.0 L Monocytes # (Manual) PT INR APTT D-Dimer Heparin Anti-Xa Level ABG pH POC ABG pCO2 POC ABG pO2 71.1 L ABG pO2 ABG HCO3 ABG Hemoglobin ABG Oxyhemoglobin 92.4 L ABG Sodium 115.6 L ABG Potassium ABG Chloride ABG Glucose 159 H Carboxyhemoglobin Sodium Potassium Chloride Carbon Dioxide BUN Creatinine Glucose POC Glucose 143 H Lactic Acid Calcium Phosphorus Magnesium Ferritin Direct Bilirubin AST ALT Lactate Dehydrogenase Total Creatine Kinase C-Reactive Protein Total Protein Albumin Triglycerides Arterial Blood Glucose 159 H Arterial Blood Ionized Calcium 4.2 L Urine Creatinine Urine Chloride Vancomycin Trough Coronavirus (PCR) Crossmatch 06/24/20 06/24/20 06/24/20 07:03 09:37 11:56 WBC RBC Hgb Hct RDW Lymph % (Auto) Lymph # (Auto) Curry # (Auto) Seg Neutrophils % Seg Neuts % (Manual) Lymphocytes % (Manual) Nucleated RBC % Seg Neutrophils # Seg Neutrophils # Man Lymphocytes # (Manual) Monocytes # (Manual) PT INR APTT D-Dimer Heparin Anti-Xa Level 0.26 L ABG pH POC ABG pCO2 POC ABG pO2 ABG pO2 ABG HCO3 ABG Hemoglobin ABG Oxyhemoglobin ABG Sodium ABG Potassium ABG Chloride ABG Glucose Carboxyhemoglobin Sodium Potassium 5.1 H Chloride Carbon Dioxide BUN 103 H Creatinine 5.0 H Glucose 163 H POC Glucose 149 H Lactic Acid Calcium 7.6 L Phosphorus Magnesium Ferritin Direct Bilirubin AST ALT Lactate Dehydrogenase Total Creatine Kinase C-Reactive Protein Total Protein Albumin Triglycerides Arterial Blood Glucose Arterial Blood Ionized Calcium Urine Creatinine Urine Chloride Vancomycin Trough Coronavirus (PCR) Crossmatch 06/24/20 06/25/20 06/25/20 18:09 01:05 03:00 WBC RBC Hgb 10.6 L Hct 32.1 L RDW Lymph % (Auto) Lymph # (Auto) Curry # (Auto) Seg Neutrophils % Seg Neuts % (Manual) Lymphocytes % (Manual) Nucleated RBC % Seg Neutrophils # Seg Neutrophils # Man Lymphocytes # (Manual) Monocytes # (Manual) PT INR APTT D-Dimer Heparin Anti-Xa Level ABG pH POC ABG pCO2 POC ABG pO2 ABG pO2 ABG HCO3 ABG Hemoglobin ABG Oxyhemoglobin ABG Sodium ABG Potassium ABG Chloride ABG Glucose Carboxyhemoglobin Sodium Potassium Chloride Carbon Dioxide BUN Creatinine Glucose POC Glucose 141 H 137 H Lactic Acid Calcium Phosphorus Magnesium Ferritin Direct Bilirubin AST ALT Lactate Dehydrogenase Total Creatine Kinase C-Reactive Protein Total Protein Albumin Triglycerides Arterial Blood Glucose Arterial Blood Ionized Calcium Urine Creatinine Urine Chloride Vancomycin Trough Coronavirus (PCR) Crossmatch 06/25/20 06/25/20 06/25/20 03:48 05:17 12:08 WBC RBC Hgb Hct RDW Lymph % (Auto) Lymph # (Auto) Curry # (Auto) Seg Neutrophils % Seg Neuts % (Manual) Lymphocytes % (Manual) Nucleated RBC % Seg Neutrophils # Seg Neutrophils # Man Lymphocytes # (Manual) Monocytes # (Manual) PT INR APTT D-Dimer Heparin Anti-Xa Level ABG pH POC ABG pCO2 29.4 L POC ABG pO2 67.1 L ABG pO2 ABG HCO3 ABG Hemoglobin 11.5 L ABG Oxyhemoglobin ABG Sodium 124.1 L ABG Potassium 4.6 H ABG Chloride ABG Glucose 159 H Carboxyhemoglobin Sodium Potassium Chloride Carbon Dioxide BUN Creatinine Glucose POC Glucose 149 H 150 H Lactic Acid Calcium Phosphorus Magnesium Ferritin Direct Bilirubin AST ALT Lactate Dehydrogenase Total Creatine Kinase C-Reactive Protein Total Protein Albumin Triglycerides Arterial Blood Glucose 159 H Arterial Blood Ionized Calcium 4.2 L Urine Creatinine Urine Chloride Vancomycin Trough Coronavirus (PCR) Crossmatch 06/25/20 06/25/20 06/25/20 16:27 16:35 17:27 WBC RBC Hgb Hct RDW Lymph % (Auto) Lymph # (Auto) Curry # (Auto) Seg Neutrophils % Seg Neuts % (Manual) Lymphocytes % (Manual) Nucleated RBC % Seg Neutrophils # Seg Neutrophils # Man Lymphocytes # (Manual) Monocytes # (Manual) PT INR APTT D-Dimer Heparin Anti-Xa Level < 0.10 L ABG pH POC ABG pCO2 POC ABG pO2 ABG pO2 ABG HCO3 ABG Hemoglobin ABG Oxyhemoglobin ABG Sodium ABG Potassium ABG Chloride ABG Glucose Carboxyhemoglobin Sodium Potassium Chloride Carbon Dioxide BUN Creatinine Glucose POC Glucose 143 H 156 H Lactic Acid Calcium Phosphorus Magnesium Ferritin Direct Bilirubin AST ALT Lactate Dehydrogenase Total Creatine Kinase C-Reactive Protein Total Protein Albumin Triglycerides Arterial Blood Glucose Arterial Blood Ionized Calcium Urine Creatinine Urine Chloride Vancomycin Trough Coronavirus (PCR) Crossmatch 06/25/20 06/25/20 06/25/20 20:00 20:55 23:10 WBC 32.7 H RBC 3.06 L Hgb 9.0 L 9.5 L Hct 26.7 L 28.6 L RDW Lymph % (Auto) Lymph # (Auto) Curry # (Auto) Seg Neutrophils % Seg Neuts % (Manual) Lymphocytes % (Manual) 2.0 L Nucleated RBC % Seg Neutrophils # Seg Neutrophils # Man 30.7 H Lymphocytes # (Manual) 0.7 L Monocytes # (Manual) 1.3 H PT 17.7 H INR 1.47 H APTT 65.8 H* D-Dimer Heparin Anti-Xa Level ABG pH POC ABG pCO2 POC ABG pO2 ABG pO2 ABG HCO3 ABG Hemoglobin ABG Oxyhemoglobin ABG Sodium ABG Potassium ABG Chloride ABG Glucose Carboxyhemoglobin Sodium Potassium Chloride Carbon Dioxide BUN Creatinine Glucose POC Glucose Lactic Acid Calcium Phosphorus Magnesium Ferritin Direct Bilirubin AST ALT Lactate Dehydrogenase Total Creatine Kinase C-Reactive Protein Total Protein Albumin Triglycerides Arterial Blood Glucose Arterial Blood Ionized Calcium Urine Creatinine Urine Chloride Vancomycin Trough Coronavirus (PCR) Crossmatch 06/25/20 06/26/20 06/26/20 23:14 01:30 03:25 WBC RBC Hgb Hct RDW Lymph % (Auto) Lymph # (Auto) Curry # (Auto) Seg Neutrophils % Seg Neuts % (Manual) Lymphocytes % (Manual) Nucleated RBC % Seg Neutrophils # Seg Neutrophils # Man Lymphocytes # (Manual) Monocytes # (Manual) PT INR APTT D-Dimer Heparin Anti-Xa Level < 0.10 L ABG pH POC ABG pCO2 POC ABG pO2 ABG pO2 ABG HCO3 ABG Hemoglobin 11.8 L ABG Oxyhemoglobin ABG Sodium 127.1 L ABG Potassium 5.4 H ABG Chloride ABG Glucose 155 H Carboxyhemoglobin 0.3 L Sodium Potassium Chloride Carbon Dioxide BUN Creatinine Glucose POC Glucose 148 H Lactic Acid Calcium Phosphorus Magnesium Ferritin Direct Bilirubin AST ALT Lactate Dehydrogenase Total Creatine Kinase C-Reactive Protein Total Protein Albumin Triglycerides Arterial Blood Glucose 155 H Arterial Blood Ionized Calcium 4.2 L Urine Creatinine Urine Chloride Vancomycin Trough Coronavirus (PCR) Crossmatch 06/26/20 06/26/20 06/26/20 03:59 05:14 05:47 WBC 36.5 H RBC 3.26 L Hgb 9.7 L Hct 28.2 L RDW Lymph % (Auto) Lymph # (Auto) Curry # (Auto) Seg Neutrophils % Seg Neuts % (Manual) 92.0 H Lymphocytes % (Manual) 4.0 L Nucleated RBC % Seg Neutrophils # Seg Neutrophils # Man 33.6 H Lymphocytes # (Manual) Monocytes # (Manual) PT INR APTT D-Dimer Heparin Anti-Xa Level ABG pH POC ABG pCO2 POC ABG pO2 ABG pO2 ABG HCO3 ABG Hemoglobin ABG Oxyhemoglobin ABG Sodium ABG Potassium ABG Chloride ABG Glucose Carboxyhemoglobin Sodium Potassium 5.9 H Chloride Carbon Dioxide 20 L BUN 144 H Creatinine 6.4 H Glucose 149 H POC Glucose 128 H Lactic Acid Calcium 7.6 L Phosphorus Magnesium Ferritin Direct Bilirubin AST ALT Lactate Dehydrogenase Total Creatine Kinase C-Reactive Protein Total Protein Albumin Triglycerides Arterial Blood Glucose Arterial Blood Ionized Calcium Urine Creatinine Urine Chloride Vancomycin Trough Coronavirus (PCR) Crossmatch 06/26/20 06/26/20 06/26/20 05:47 12:47 17:42 WBC RBC Hgb Hct RDW Lymph % (Auto) Lymph # (Auto) Curry # (Auto) Seg Neutrophils % Seg Neuts % (Manual) Lymphocytes % (Manual) Nucleated RBC % Seg Neutrophils # Seg Neutrophils # Man Lymphocytes # (Manual) Monocytes # (Manual) PT 17.4 H INR 1.44 H APTT D-Dimer Heparin Anti-Xa Level ABG pH POC ABG pCO2 POC ABG pO2 ABG pO2 ABG HCO3 ABG Hemoglobin ABG Oxyhemoglobin ABG Sodium ABG Potassium ABG Chloride ABG Glucose Carboxyhemoglobin Sodium Potassium Chloride Carbon Dioxide BUN Creatinine Glucose POC Glucose 124 H 127 H Lactic Acid Calcium Phosphorus Magnesium Ferritin Direct Bilirubin AST ALT Lactate Dehydrogenase Total Creatine Kinase C-Reactive Protein Total Protein Albumin Triglycerides Arterial Blood Glucose Arterial Blood Ionized Calcium Urine Creatinine Urine Chloride Vancomycin Trough Coronavirus (PCR) Crossmatch 06/26/20 06/27/20 06/27/20 23:30 03:32 04:00 WBC RBC Hgb 8.7 L Hct 26.4 L RDW Lymph % (Auto) Lymph # (Auto) Curry # (Auto) Seg Neutrophils % Seg Neuts % (Manual) Lymphocytes % (Manual) Nucleated RBC % Seg Neutrophils # Seg Neutrophils # Man Lymphocytes # (Manual) Monocytes # (Manual) PT INR APTT D-Dimer Heparin Anti-Xa Level ABG pH 7.298 L POC ABG pCO2 POC ABG pO2 ABG pO2 ABG HCO3 ABG Hemoglobin 9.6 L ABG Oxyhemoglobin ABG Sodium 124.4 L ABG Potassium 6.6 H ABG Chloride ABG Glucose 136 H Carboxyhemoglobin Sodium Potassium Chloride Carbon Dioxide BUN Creatinine Glucose POC Glucose 123 H Lactic Acid Calcium Phosphorus Magnesium Ferritin Direct Bilirubin AST ALT Lactate Dehydrogenase Total Creatine Kinase C-Reactive Protein Total Protein Albumin Triglycerides Arterial Blood Glucose 136 H Arterial Blood Ionized Calcium 4.1 L Urine Creatinine Urine Chloride Vancomycin Trough Coronavirus (PCR) Crossmatch 06/27/20 06/27/20 06/27/20 05:26 10:14 11:58 WBC RBC Hgb Hct RDW Lymph % (Auto) Lymph # (Auto) Curry # (Auto) Seg Neutrophils % Seg Neuts % (Manual) Lymphocytes % (Manual) Nucleated RBC % Seg Neutrophils # Seg Neutrophils # Man Lymphocytes # (Manual) Monocytes # (Manual) PT INR APTT D-Dimer Heparin Anti-Xa Level ABG pH POC ABG pCO2 POC ABG pO2 ABG pO2 ABG HCO3 ABG Hemoglobin ABG Oxyhemoglobin ABG Sodium ABG Potassium ABG Chloride ABG Glucose Carboxyhemoglobin Sodium 136 L Potassium 7.0 H* Chloride 97.8 L Carbon Dioxide BUN 172 H Creatinine 7.4 H Glucose 129 H POC Glucose 124 H 115 H Lactic Acid Calcium 7.6 L Phosphorus Magnesium Ferritin Direct Bilirubin AST ALT Lactate Dehydrogenase Total Creatine Kinase C-Reactive Protein Total Protein Albumin Triglycerides Arterial Blood Glucose Arterial Blood Ionized Calcium Urine Creatinine Urine Chloride Vancomycin Trough Coronavirus (PCR) Crossmatch 06/27/20 06/27/20 06/27/20 17:32 18:30 23:24 WBC RBC Hgb Hct RDW Lymph % (Auto) Lymph # (Auto) Curry # (Auto) Seg Neutrophils % Seg Neuts % (Manual) Lymphocytes % (Manual) Nucleated RBC % Seg Neutrophils # Seg Neutrophils # Man Lymphocytes # (Manual) Monocytes # (Manual) PT INR APTT D-Dimer Heparin Anti-Xa Level ABG pH POC ABG pCO2 POC ABG pO2 ABG pO2 ABG HCO3 ABG Hemoglobin ABG Oxyhemoglobin ABG Sodium ABG Potassium ABG Chloride ABG Glucose Carboxyhemoglobin Sodium Potassium 7.3 H* Chloride Carbon Dioxide BUN Creatinine Glucose POC Glucose 122 H 116 H Lactic Acid Calcium Phosphorus Magnesium Ferritin Direct Bilirubin AST ALT Lactate Dehydrogenase Total Creatine Kinase C-Reactive Protein Total Protein Albumin Triglycerides Arterial Blood Glucose Arterial Blood Ionized Calcium Urine Creatinine Urine Chloride Vancomycin Trough Coronavirus (PCR) Crossmatch 06/28/20 06/28/20 06/28/20 00:00 02:16 05:37 WBC RBC Hgb Hct RDW Lymph % (Auto) Lymph # (Auto) Curry # (Auto) Seg Neutrophils % Seg Neuts % (Manual) Lymphocytes % (Manual) Nucleated RBC % Seg Neutrophils # Seg Neutrophils # Man Lymphocytes # (Manual) Monocytes # (Manual) PT INR APTT D-Dimer Heparin Anti-Xa Level ABG pH POC ABG pCO2 POC ABG pO2 79.0 L ABG pO2 ABG HCO3 ABG Hemoglobin 11.7 L ABG Oxyhemoglobin ABG Sodium 128.1 L ABG Potassium 6.6 H ABG Chloride ABG Glucose 124 H Carboxyhemoglobin Sodium Potassium 7.3 H* Chloride Carbon Dioxide BUN Creatinine Glucose POC Glucose 115 H Lactic Acid Calcium Phosphorus Magnesium Ferritin Direct Bilirubin AST ALT Lactate Dehydrogenase Total Creatine Kinase C-Reactive Protein Total Protein Albumin Triglycerides Arterial Blood Glucose 124 H Arterial Blood Ionized Calcium 4.2 L Urine Creatinine Urine Chloride Vancomycin Trough Coronavirus (PCR) Crossmatch 06/28/20 06/28/20 06/28/20 10:03 10:03 11:51 WBC 33.6 H RBC 3.03 L Hgb 8.9 L Hct 27.0 L RDW Lymph % (Auto) Lymph # (Auto) Curry # (Auto) Seg Neutrophils % Seg Neuts % (Manual) Lymphocytes % (Manual) Nucleated RBC % Seg Neutrophils # Seg Neutrophils # Man Lymphocytes # (Manual) Monocytes # (Manual) PT INR APTT D-Dimer Heparin Anti-Xa Level ABG pH POC ABG pCO2 POC ABG pO2 ABG pO2 ABG HCO3 ABG Hemoglobin ABG Oxyhemoglobin ABG Sodium ABG Potassium ABG Chloride ABG Glucose Carboxyhemoglobin Sodium 136 L Potassium 6.5 H* Chloride Carbon Dioxide 20 L BUN 129 H Creatinine 5.8 H Glucose 113 H POC Glucose 107 H Lactic Acid Calcium 7.6 L Phosphorus Magnesium Ferritin Direct Bilirubin AST ALT Lactate Dehydrogenase Total Creatine Kinase C-Reactive Protein Total Protein Albumin Triglycerides Arterial Blood Glucose Arterial Blood Ionized Calcium Urine Creatinine Urine Chloride Vancomycin Trough Coronavirus (PCR) Crossmatch 06/28/20 06/28/20 06/29/20 17:45 Unknown 03:15 WBC RBC Hgb Hct RDW Lymph % (Auto) Lymph # (Auto) Curry # (Auto) Seg Neutrophils % Seg Neuts % (Manual) Lymphocytes % (Manual) Nucleated RBC % Seg Neutrophils # Seg Neutrophils # Man Lymphocytes # (Manual) Monocytes # (Manual) PT INR APTT D-Dimer Heparin Anti-Xa Level ABG pH POC ABG pCO2 POC ABG pO2 ABG pO2 ABG HCO3 ABG Hemoglobin 7.8 L ABG Oxyhemoglobin ABG Sodium 127.4 L ABG Potassium 5.5 H ABG Chloride 97.0 L ABG Glucose 96 H Carboxyhemoglobin Sodium Potassium 5.4 H Chloride Carbon Dioxide BUN Creatinine Glucose POC Glucose 117 H Lactic Acid Calcium Phosphorus Magnesium Ferritin Direct Bilirubin AST ALT Lactate Dehydrogenase Total Creatine Kinase C-Reactive Protein Total Protein Albumin Triglycerides Arterial Blood Glucose 96 H Arterial Blood Ionized Calcium 4.0 L Urine Creatinine Urine Chloride Vancomycin Trough Coronavirus (PCR) Crossmatch 06/29/20 06/29/20 06/29/20 03:45 Unknown Unknown WBC RBC Hgb Hct RDW Lymph % (Auto) Lymph # (Auto) Curry # (Auto) Seg Neutrophils % Seg Neuts % (Manual) Lymphocytes % (Manual) Nucleated RBC % Seg Neutrophils # Seg Neutrophils # Man Lymphocytes # (Manual) Monocytes # (Manual) PT INR APTT D-Dimer Heparin Anti-Xa Level ABG pH POC ABG pCO2 POC ABG pO2 ABG pO2 ABG HCO3 ABG Hemoglobin ABG Oxyhemoglobin ABG Sodium ABG Potassium ABG Chloride ABG Glucose Carboxyhemoglobin Sodium 135 L Potassium 6.0 H 6.1 H* Chloride 94.8 L Carbon Dioxide BUN 109 H 114 H Creatinine 5.5 H Glucose POC Glucose Lactic Acid Calcium 7.4 L Phosphorus Magnesium Ferritin Direct Bilirubin AST 47 H ALT Lactate Dehydrogenase Total Creatine Kinase C-Reactive Protein Total Protein 4.9 L Albumin 2.2 L Triglycerides Arterial Blood Glucose Arterial Blood Ionized Calcium Urine Creatinine Urine Chloride Vancomycin Trough Coronavirus (PCR) Crossmatch 06/29/20 06/29/20 06/30/20 Unknown Unknown 03:32 WBC 20.7 H RBC 2.57 L Hgb 7.6 L Hct 23.0 L RDW Lymph % (Auto) Lymph # (Auto) Curry # (Auto) Seg Neutrophils % Seg Neuts % (Manual) Lymphocytes % (Manual) Nucleated RBC % Seg Neutrophils # Seg Neutrophils # Man Lymphocytes # (Manual) Monocytes # (Manual) PT INR APTT D-Dimer Heparin Anti-Xa Level ABG pH POC ABG pCO2 POC ABG pO2 ABG pO2 ABG HCO3 ABG Hemoglobin 11.4 L ABG Oxyhemoglobin ABG Sodium 130.1 L ABG Potassium 5.0 H ABG Chloride ABG Glucose Carboxyhemoglobin Sodium Potassium Chloride Carbon Dioxide BUN Creatinine Glucose POC Glucose Lactic Acid Calcium Phosphorus Magnesium Ferritin Direct Bilirubin AST ALT Lactate Dehydrogenase Total Creatine Kinase 618 H C-Reactive Protein Total Protein Albumin Triglycerides Arterial Blood Glucose Arterial Blood Ionized Calcium 3.9 L Urine Creatinine Urine Chloride Vancomycin Trough Coronavirus (PCR) Crossmatch 06/30/20 06/30/20 06/30/20 03:50 03:50 11:39 WBC 13.1 H RBC Hgb Hct RDW Lymph % (Auto) Lymph # (Auto) Curry # (Auto) Seg Neutrophils % Seg Neuts % (Manual) 95.0 H Lymphocytes % (Manual) 3.0 L Nucleated RBC % Seg Neutrophils # Seg Neutrophils # Man 12.4 H Lymphocytes # (Manual) 0.4 L Monocytes # (Manual) PT INR APTT D-Dimer Heparin Anti-Xa Level ABG pH POC ABG pCO2 POC ABG pO2 ABG pO2 ABG HCO3 ABG Hemoglobin ABG Oxyhemoglobin ABG Sodium ABG Potassium ABG Chloride ABG Glucose Carboxyhemoglobin Sodium 135 L Potassium 5.4 H D Chloride 93.6 L Carbon Dioxide BUN 85 H Creatinine 4.6 H Glucose POC Glucose 111 H Lactic Acid Calcium 7.1 L Phosphorus 9.40 H Magnesium Ferritin Direct Bilirubin AST ALT Lactate Dehydrogenase Total Creatine Kinase C-Reactive Protein Total Protein Albumin Triglycerides Arterial Blood Glucose Arterial Blood Ionized Calcium Urine Creatinine Urine Chloride Vancomycin Trough Coronavirus (PCR) Crossmatch 06/30/20 06/30/20 07/01/20 13:12 Unknown 03:19 WBC RBC Hgb 7.8 L D Hct 23.2 L D RDW Lymph % (Auto) Lymph # (Auto) Curry # (Auto) Seg Neutrophils % Seg Neuts % (Manual) Lymphocytes % (Manual) Nucleated RBC % Seg Neutrophils # Seg Neutrophils # Man Lymphocytes # (Manual) Monocytes # (Manual) PT INR APTT D-Dimer Heparin Anti-Xa Level ABG pH 7.461 H POC ABG pCO2 POC ABG pO2 77.2 L ABG pO2 ABG HCO3 ABG Hemoglobin 6.9 L ABG Oxyhemoglobin ABG Sodium 128.5 L ABG Potassium ABG Chloride 97.0 L ABG Glucose Carboxyhemoglobin Sodium Potassium Chloride Carbon Dioxide BUN Creatinine Glucose POC Glucose Lactic Acid Calcium Phosphorus Magnesium Ferritin Direct Bilirubin AST ALT Lactate Dehydrogenase Total Creatine Kinase C-Reactive Protein Total Protein Albumin Triglycerides Arterial Blood Glucose Arterial Blood Ionized Calcium 3.7 L Urine Creatinine Urine Chloride Vancomycin Trough Coronavirus (PCR) Positive A Crossmatch 07/01/20 07/01/20 07/01/20 06:00 06:00 11:04 WBC 16.7 H RBC 2.16 L Hgb 6.4 L Hct 19.2 L* RDW Lymph % (Auto) Lymph # (Auto) Curry # (Auto) Seg Neutrophils % Seg Neuts % (Manual) Lymphocytes % (Manual) Nucleated RBC % Seg Neutrophils # Seg Neutrophils # Man Lymphocytes # (Manual) Monocytes # (Manual) PT INR APTT D-Dimer Heparin Anti-Xa Level ABG pH POC ABG pCO2 POC ABG pO2 ABG pO2 ABG HCO3 ABG Hemoglobin ABG Oxyhemoglobin ABG Sodium ABG Potassium ABG Chloride ABG Glucose Carboxyhemoglobin Sodium 136 L Potassium Chloride 95.8 L Carbon Dioxide BUN 72 H Creatinine 4.3 H Glucose POC Glucose Lactic Acid Calcium 6.7 L Phosphorus Magnesium Ferritin Direct Bilirubin AST ALT Lactate Dehydrogenase Total Creatine Kinase C-Reactive Protein Total Protein Albumin Triglycerides 250 H Arterial Blood Glucose Arterial Blood Ionized Calcium Urine Creatinine Urine Chloride Vancomycin Trough Coronavirus (PCR) Crossmatch See Detail 07/02/20 07/02/20 07/02/20 04:44 06:00 11:33 WBC 14.6 H RBC 2.47 L Hgb 7.4 L Hct 21.8 L RDW Lymph % (Auto) Lymph # (Auto) Curry # (Auto) Seg Neutrophils % Seg Neuts % (Manual) Lymphocytes % (Manual) Nucleated RBC % Seg Neutrophils # Seg Neutrophils # Man Lymphocytes # (Manual) Monocytes # (Manual) PT INR APTT D-Dimer Heparin Anti-Xa Level ABG pH 7.457 H POC ABG pCO2 POC ABG pO2 79.4 L ABG pO2 ABG HCO3 ABG Hemoglobin 8.5 L ABG Oxyhemoglobin ABG Sodium 128.4 L ABG Potassium ABG Chloride 97.0 L ABG Glucose 100 H Carboxyhemoglobin Sodium 133 L Potassium 5.2 H Chloride 93.3 L Carbon Dioxide BUN 66 H Creatinine 4.1 H Glucose 102 H POC Glucose Lactic Acid Calcium 7.2 L Phosphorus Magnesium Ferritin Direct Bilirubin AST ALT Lactate Dehydrogenase Total Creatine Kinase C-Reactive Protein Total Protein Albumin Triglycerides Arterial Blood Glucose 100 H Arterial Blood Ionized Calcium 3.9 L Urine Creatinine Urine Chloride Vancomycin Trough Coronavirus (PCR) Crossmatch 07/02/20 07/03/20 07/03/20 11:33 03:54 09:15 WBC 16.6 H RBC 2.44 L Hgb 7.3 L Hct 21.4 L RDW Lymph % (Auto) Lymph # (Auto) Curry # (Auto) Seg Neutrophils % Seg Neuts % (Manual) Lymphocytes % (Manual) Nucleated RBC % Seg Neutrophils # Seg Neutrophils # Man Lymphocytes # (Manual) Monocytes # (Manual) PT INR APTT D-Dimer Heparin Anti-Xa Level ABG pH POC ABG pCO2 POC ABG pO2 66.1 L ABG pO2 ABG HCO3 ABG Hemoglobin 8.0 L ABG Oxyhemoglobin ABG Sodium 124.6 L ABG Potassium 5.5 H ABG Chloride 96.0 L ABG Glucose 111 H Carboxyhemoglobin Sodium Potassium Chloride Carbon Dioxide BUN Creatinine Glucose POC Glucose Lactic Acid Calcium Phosphorus Magnesium Ferritin Direct Bilirubin 0.7 H AST 94 H ALT 60 H Lactate Dehydrogenase Total Creatine Kinase C-Reactive Protein Total Protein 4.4 L Albumin 1.9 L Triglycerides Arterial Blood Glucose 111 H Arterial Blood Ionized Calcium 3.8 L Urine Creatinine Urine Chloride Vancomycin Trough Coronavirus (PCR) Crossmatch 07/03/20 07/03/20 07/03/20 09:15 10:10 14:50 WBC RBC Hgb Hct RDW Lymph % (Auto) Lymph # (Auto) Curry # (Auto) Seg Neutrophils % Seg Neuts % (Manual) Lymphocytes % (Manual) Nucleated RBC % Seg Neutrophils # Seg Neutrophils # Man Lymphocytes # (Manual) Monocytes # (Manual) PT INR APTT D-Dimer 6608.00 H Heparin Anti-Xa Level ABG pH POC ABG pCO2 POC ABG pO2 ABG pO2 ABG HCO3 ABG Hemoglobin ABG Oxyhemoglobin ABG Sodium ABG Potassium ABG Chloride ABG Glucose Carboxyhemoglobin Sodium 133 L Potassium 6.2 H* Chloride 93.1 L Carbon Dioxide BUN 89 H Creatinine 5.1 H Glucose POC Glucose Lactic Acid Calcium 7.0 L Phosphorus Magnesium Ferritin Direct Bilirubin AST ALT Lactate Dehydrogenase Total Creatine Kinase C-Reactive Protein Total Protein Albumin Triglycerides Arterial Blood Glucose Arterial Blood Ionized Calcium Urine Creatinine Urine Chloride Vancomycin Trough Coronavirus (PCR) Positive A Crossmatch 07/03/20 07/03/20 07/03/20 14:50 14:50 14:50 WBC RBC Hgb Hct RDW Lymph % (Auto) Lymph # (Auto) Curry # (Auto) Seg Neutrophils % Seg Neuts % (Manual) Lymphocytes % (Manual) Nucleated RBC % Seg Neutrophils # Seg Neutrophils # Man Lymphocytes # (Manual) Monocytes # (Manual) PT INR APTT D-Dimer Heparin Anti-Xa Level ABG pH POC ABG pCO2 POC ABG pO2 ABG pO2 ABG HCO3 ABG Hemoglobin ABG Oxyhemoglobin ABG Sodium ABG Potassium ABG Chloride ABG Glucose Carboxyhemoglobin Sodium Potassium Chloride Carbon Dioxide BUN Creatinine Glucose POC Glucose Lactic Acid < 0.20 L Calcium Phosphorus Magnesium Ferritin 1171.0 H Direct Bilirubin AST ALT Lactate Dehydrogenase 525 H Total Creatine Kinase C-Reactive Protein 31.50 H Total Protein Albumin Triglycerides Arterial Blood Glucose Arterial Blood Ionized Calcium Urine Creatinine Urine Chloride Vancomycin Trough Coronavirus (PCR) Crossmatch 07/03/20 07/04/20 07/04/20 16:47 05:20 05:20 WBC 11.8 H RBC 2.32 L Hgb 6.7 L Hct 20.8 L RDW Lymph % (Auto) 2.6 L Lymph # (Auto) 0.3 L Curry # (Auto) Seg Neutrophils % Seg Neuts % (Manual) Lymphocytes % (Manual) Nucleated RBC % Seg Neutrophils # 11.0 H Seg Neutrophils # Man Lymphocytes # (Manual) Monocytes # (Manual) PT INR APTT D-Dimer Heparin Anti-Xa Level ABG pH POC ABG pCO2 POC ABG pO2 ABG pO2 ABG HCO3 ABG Hemoglobin ABG Oxyhemoglobin ABG Sodium ABG Potassium ABG Chloride ABG Glucose Carboxyhemoglobin Sodium Potassium 6.0 H Chloride 97.8 L Carbon Dioxide BUN 75 H Creatinine 4.5 H Glucose 121 H POC Glucose 107 H Lactic Acid Calcium 7.9 L Phosphorus Magnesium Ferritin Direct Bilirubin AST ALT Lactate Dehydrogenase Total Creatine Kinase C-Reactive Protein Total Protein Albumin Triglycerides Arterial Blood Glucose Arterial Blood Ionized Calcium Urine Creatinine Urine Chloride Vancomycin Trough Coronavirus (PCR) Crossmatch 07/04/20 07/04/20 07/04/20 05:20 05:50 09:25 WBC RBC Hgb Hct RDW Lymph % (Auto) Lymph # (Auto) Curry # (Auto) Seg Neutrophils % Seg Neuts % (Manual) Lymphocytes % (Manual) Nucleated RBC % Seg Neutrophils # Seg Neutrophils # Man Lymphocytes # (Manual) Monocytes # (Manual) PT INR APTT D-Dimer Heparin Anti-Xa Level ABG pH 7.324 L POC ABG pCO2 POC ABG pO2 ABG pO2 98.9 H ABG HCO3 26.8 H ABG Hemoglobin < 5.1 L ABG Oxyhemoglobin ABG Sodium ABG Potassium ABG Chloride ABG Glucose Carboxyhemoglobin Sodium Potassium Chloride Carbon Dioxide BUN Creatinine Glucose POC Glucose 114 H Lactic Acid Calcium Phosphorus Magnesium Ferritin Direct Bilirubin AST ALT Lactate Dehydrogenase Total Creatine Kinase C-Reactive Protein Total Protein Albumin Triglycerides Arterial Blood Glucose Arterial Blood Ionized Calcium Urine Creatinine Urine Chloride Vancomycin Trough Coronavirus (PCR) Crossmatch See Detail 07/04/20 07/04/20 07/04/20 12:33 17:41 23:04 WBC RBC Hgb Hct RDW Lymph % (Auto) Lymph # (Auto) Curry # (Auto) Seg Neutrophils % Seg Neuts % (Manual) Lymphocytes % (Manual) Nucleated RBC % Seg Neutrophils # Seg Neutrophils # Man Lymphocytes # (Manual) Monocytes # (Manual) PT INR APTT D-Dimer Heparin Anti-Xa Level ABG pH POC ABG pCO2 POC ABG pO2 ABG pO2 ABG HCO3 ABG Hemoglobin ABG Oxyhemoglobin ABG Sodium ABG Potassium ABG Chloride ABG Glucose Carboxyhemoglobin Sodium Potassium Chloride Carbon Dioxide BUN Creatinine Glucose POC Glucose 119 H 109 H 116 H Lactic Acid Calcium Phosphorus Magnesium Ferritin Direct Bilirubin AST ALT Lactate Dehydrogenase Total Creatine Kinase C-Reactive Protein Total Protein Albumin Triglycerides Arterial Blood Glucose Arterial Blood Ionized Calcium Urine Creatinine Urine Chloride Vancomycin Trough Coronavirus (PCR) Crossmatch 07/05/20 07/05/20 07/05/20 04:30 08:21 08:21 WBC RBC 2.77 L Hgb 7.9 L Hct 23.9 L RDW 16.7 H Lymph % (Auto) 7.5 L Lymph # (Auto) 0.7 L Curry # (Auto) Seg Neutrophils % 85.8 H Seg Neuts % (Manual) Lymphocytes % (Manual) Nucleated RBC % Seg Neutrophils # 7.8 H Seg Neutrophils # Man Lymphocytes # (Manual) Monocytes # (Manual) PT INR APTT D-Dimer Heparin Anti-Xa Level ABG pH 7.295 L POC ABG pCO2 POC ABG pO2 ABG pO2 151.9 H ABG HCO3 26.8 H ABG Hemoglobin 7.3 L ABG Oxyhemoglobin ABG Sodium ABG Potassium ABG Chloride ABG Glucose Carboxyhemoglobin Sodium Potassium Chloride Carbon Dioxide BUN Creatinine Glucose POC Glucose Lactic Acid Calcium Phosphorus Magnesium Ferritin Direct Bilirubin AST ALT Lactate Dehydrogenase Total Creatine Kinase C-Reactive Protein Total Protein Albumin Triglycerides 258 H Arterial Blood Glucose Arterial Blood Ionized Calcium Urine Creatinine Urine Chloride Vancomycin Trough Coronavirus (PCR) Crossmatch 07/05/20 07/05/20 07/06/20 08:21 12:12 04:29 WBC RBC Hgb Hct RDW Lymph % (Auto) Lymph # (Auto) Curry # (Auto) Seg Neutrophils % Seg Neuts % (Manual) Lymphocytes % (Manual) Nucleated RBC % Seg Neutrophils # Seg Neutrophils # Man Lymphocytes # (Manual) Monocytes # (Manual) PT INR APTT D-Dimer Heparin Anti-Xa Level ABG pH 7.291 L POC ABG pCO2 51.3 H POC ABG pO2 ABG pO2 ABG HCO3 ABG Hemoglobin 8.5 L ABG Oxyhemoglobin ABG Sodium 129.6 L ABG Potassium 4.8 H ABG Chloride 96.0 L ABG Glucose Carboxyhemoglobin Sodium 133 L Potassium 5.6 H Chloride 94.4 L Carbon Dioxide BUN 80 H Creatinine 4.2 H Glucose 114 H POC Glucose 106 H Lactic Acid Calcium 7.6 L Phosphorus Magnesium Ferritin Direct Bilirubin 0.5 H AST 75 H ALT 86 H Lactate Dehydrogenase Total Creatine Kinase C-Reactive Protein Total Protein 5.6 L D Albumin 1.9 L Triglycerides Arterial Blood Glucose Arterial Blood Ionized Calcium 4.2 L Urine Creatinine Urine Chloride Vancomycin Trough Coronavirus (PCR) Crossmatch Chest x-ray: other (none today) Allied health notes reviewed: nursing
[2020-07-06 12:08] LABS: Hematocrit 21.5 % (35.5-45.6); Hemoglobin 7.5 gm/dl (11.8-15.2); Mean Corpuscular HGB Conc 35 % (32-34); Mean Corpuscular Volume 85 fl (84-94); Platelet Count 185 K/mm3 (140-440); Red Blood Count 2.54 M/mm3 (3.65-5.03); Red Cell Distribution Width 15.7 % (13.2-15.2)
[2020-07-06 13:06] LABS: Blood Urea Nitrogen 107 mg/dL (9-20); Calcium 7.5 mg/dL (8.4-10.2); Hemolysis Index 234
[2020-07-06 13:10] LABS: BUN/Creatinine Ratio 21
--- NOTE | 2020-07-06 14:18 | Progress Note ---
Assessment and Plan 59-year-old white male who was admitted for pneumonia secondary to Covid with associated respiratory failure and sepsis. Hyperkalemia -Treated aggressively -Calcium gluconate IV sodium bicarbonate and Kayexalate given Acute metabolic encephalopathy -Due to severe sepsis and severe hypoxia -CT head ordered (patient is too unstable to do the scan), currently intubated, continue supportive care with frequent neuro check Acute hypoxic respiratory failure -Due to severe COVID-19 pneumonia -Intubated following admission overnight as patient was unable to maintain oxygenation with 100% FiO2 with BiPAP -Critical care following, frequent nebulizer breathing treatment, empiric steroid Severe septic shock -Patient currently on 2 pressor support -Wean off as tolerated COVID-19 pneumonia -Follow inflammatory markers, ID consulted --Patient initially tested positive for COVID-19 virus about 2 weeks before this admission -CXR shows patchy parenchymal disease which represent pulmonary edema or atypical pneumonia -Placed on dexamethasone for total 10 days and completed remdesivir total 5 days -Continue empiric antibiotics for now per ID recommendation -Droplet/contact isolation -Continue SPO2 monitoring -Supplemental oxygen as needed -Pulmonary hygiene, Prone intermittently to improve oxygenation -Vitamin C, vitamin D, zinc -Anticoagulation per protocol -Lasix IV as needed to prevent pulmonary edema GIRISH, likely ATN -Follow BMP daily, avoid nephrotoxins -Consulted nephrology, follow recommendations -Renal function continues to decline, started on hemodialysis since 06/22/20 hypokalemia, repleted Supraventricular tachycardia/paroxysmal atrial fibrillation -likely due to severe sepsis -Patient currently on pressors and IV amiodarone drip for rate control if needed -Consulted cardiology, echo ordered currently pending -Placed on heparin drip Elevated LFT, due to shock liver from severe sepsis and COVID-19 infection -Continue to trend Morbid obesity, -Associated with poor outcome with Covid infection -need counseling for diet and exercise and healthy lifestyles once clinically stable as outpatient DVT prophylaxis, per Covid protocol Full CODE STATUS Poor prognosis The high probability of a clinically significant, sudden or life threatening deterioration of the [[facility]vs, [employer], 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 The aggregate critical care time was [42] minutes. This time is in addition to time spent performing reported procedures but includes the following: [x] Data Review and interpretation [x] Patient assessment and monitoring of vital signs [x] Documentation [x] Medication orders and management daily course: 06/18: Patient got intubated overnight. Patient was placed on BiPAP to maintain oxygenation with 100% FiO2 but apparently he found to take off his argueta which made his oxygen saturation go down at 60s/50s and patient was found altered mental status. Code met was called immediately. Patient was transferred to ICU and intubated, patient currently on 2 pressors, intubated with 100% FiO2, renal function noted to be decline, nephrology consulted. Discussed with [place] physician Dr. Thompson and requested call back on Saturday. Poor prognosis, continue to monitor with aggressive supportive care. Also called family/ to update clinical status. 06/19: Repeat COVID test was positive. cont cefepime, remdesivir per ID recommendation. follow inflammatory markers, cbc, bmp. placed on heparin drip for atrial fib 06/20: Remains on mechanical ventilation, on 2 pressors, on heparin drip. discussed with and daughter by phone. Renal function declining. cont supportive care for now. 06/21: Renal function cont to decline, urine outpt sig decreased. started on lasix 80mg BID, plan to follow urine output, if no improvement patient need to start on HD. called and daughter today. updated all clinical details 06/22: Renal function continues to decline with uremia and hyperkalemia. Will need to proceed with hemodialysis. Nephrology discussed with the family and they agrees for the hemodialysis. Patient remains on pressor support and mechanical ventilation. Vas-Cath placed today by vascular started on hemodialysis today. 06/23: 2nd round of HD today, remains on 2 pressors. per RN not tolerating TF, has no record of BM since 06/18. start on stool softner. follow cbc/bmp. updated family( and daughter) by phone -all question answered to best of my knowledge and to their satisfaction. Patient remains critically ill with a very poor prognosis. 06/24: Continue supportive care, Very poor prognosis, [employer] to discuss with family in am due to the futility of the condition. 06/25/2020 continue supportive care very poor prognosis 06/26/2020 continue supportive care very poor prognosis family updated 06/27/2020 continue supportive care and weaning if possible 06/28/2020 continue supportive care, talk with at length 06/29: Resumed care. K level persistently high. give one dose of bicarbonate, plan for HD today, recheck k after HD. updated family by phone 06/30: updated family by phone. Patient remains on amiodarone drip and vasopressin. Getting HD at the bedside. Tolerating tube feeding at low rate. 07/01: Hb dropped to 6.4 today, transfuse one unit PRBC. patient is off pressor today, remains on amioderone. cont to monitor 07/02: Called patient and updated clinical details. Patient remains critically ill, still intubated. Patient's oxygen requirement and PEEP pressure has went down. Continue weaning protocol per critical care recommendation. Patient remains off pressor. Continue to wean off from amiodarone and plan to rate control with p.o. medications. Tolerating tube feeding. H&H stable today. Order for stool for occult blood. Monitor H&H and BMP. Continue to follow clinically 07/03: discussed with [place] physician today. Patient back on 100percent Fio2 since last night. planned for emergent Hd today. spiked fever, start IV Cefepime + Vancomycin renally dosed. Restarted Levophed today, remains on amiodarone drip. Patient family was updated by critical care attending today. 07/04: Patient has hemodialysis yesterday and also plan for today for volume overload and pulmonary edema. Patient currently on 80% FiO2. Remains on Levophed and amiodarone. Hemoglobin dropped to 6.7 without any evidence of active bleeding. LFTs remain stable. Repeat Covid test on 06/30 and 07/03 remains positive. Will transfuse another unit of packed RBC today. Called family for update -explained family that patient is critically ill with very poor prognosis. 07/05: Patient on 70% FiO2 with PEEP of 14. h/h stable after transfusion. hyperkalemia improved, cont sodiumbicarbonate pill with TF. follow BMP. off levophed today, remains on amioderone. poor prognosis. 07/06: Patient remains on amiodarone drip, maintaining BP without any pressor. FiO2 requirement trended down to 60% with PEEP of 14. Continue to follow clin ically. Plan to wean off amiodarone drip as tolerated. Wean off from sedation as tolerated. Updated family. Patient remains critically ill with poor prognosis. Subjective Date of service: 07/06/20 Principal diagnosis: ARF/Septic Shock/COVID-19 PNA, AF with RVR Objective - Constitutional Vitals: Vital Signs - 12hr 07/06/20 07/06/20 07/06/20 02:30 02:45 03:00 Temperature Pulse Rate 98 H 103 H 97 H Pulse Rate [ Right Dorsalis Pedis] Respiratory 26 H 23 15 Rate Blood Pressure 112/52 101/56 116/50 O2 Sat by Pulse 96 96 96 Oximetry 07/06/20 07/06/20 07/06/20 03:15 03:30 03:45 Temperature Pulse Rate 103 H 94 H 91 H Pulse Rate [ Right Dorsalis Pedis] Respiratory 12 13 15 Rate Blood Pressure 111/51 103/50 109/48 O2 Sat by Pulse 96 97 96 Oximetry 07/06/20 07/06/20 07/06/20 04:00 04:15 04:29 Temperature 98.5 F Pulse Rate 106 H 101 H 94 H Pulse Rate [ 92 H Right Dorsalis Pedis] Respiratory 13 14 Rate Blood Pressure 111/49 101/49 101/49 O2 Sat by Pulse 97 96 96 Oximetry 07/06/20 07/06/20 07/06/20 04:30 04:45 05:00 Temperature Pulse Rate 96 H 105 H 105 H Pulse Rate [ Right Dorsalis Pedis] Respiratory 15 13 14 Rate Blood Pressure 98/46 98/50 92/53 O2 Sat by Pulse 97 97 97 Oximetry 07/06/20 07/06/20 07/06/20 05:15 05:30 05:45 Temperature Pulse Rate 101 H 86 89 Pulse Rate [ Right Dorsalis Pedis] Respiratory 14 13 14 Rate Blood Pressure 98/53 109/49 109/48 O2 Sat by Pulse 97 97 97 Oximetry 07/06/20 07/06/20 07/06/20 06:00 06:04 06:16 Temperature Pulse Rate 115 H 103 H 92 H Pulse Rate [ Right Dorsalis Pedis] Respiratory 12 19 Rate Blood Pressure 117/54 117/54 123/49 O2 Sat by Pulse 96 97 Oximetry 07/06/20 07/06/20 07/06/20 06:30 06:45 07:00 Temperature Pulse Rate 89 99 H 88 Pulse Rate [ Right Dorsalis Pedis] Respiratory 14 14 15 Rate Blood Pressure 123/52 131/53 122/47 O2 Sat by Pulse 96 97 96 Oximetry 07/06/20 07/06/20 07/06/20 07:15 07:30 07:45 Temperature Pulse Rate 94 H 92 H 111 H Pulse Rate [ Right Dorsalis Pedis] Respiratory 13 18 24 Rate Blood Pressure 117/47 110/53 129/65 O2 Sat by Pulse 96 96 94 Oximetry 07/06/20 07/06/20 07/06/20 08:00 08:15 08:30 Temperature 98.4 F Pulse Rate 99 H 92 H 102 H Pulse Rate [ 94 H Right Dorsalis Pedis] Respiratory 22 24 26 H Rate Blood Pressure 133/55 135/56 126/66 O2 Sat by Pulse 94 95 94 Oximetry 07/06/20 07/06/20 07/06/20 08:45 08:51 09:00 Temperature Pulse Rate 100 H 105 H 93 H Pulse Rate [ Right Dorsalis Pedis] Respiratory 24 26 H Rate Blood Pressure 120/52 120/52 120/52 O2 Sat by Pulse 95 93 95 Oximetry 07/06/20 07/06/20 07/06/20 09:15 09:30 09:45 Temperature Pulse Rate 101 H 105 H 90 Pulse Rate [ Right Dorsalis Pedis] Respiratory 27 H 27 H 23 Rate Blood Pressure 128/52 130/51 118/45 O2 Sat by Pulse 93 94 94 Oximetry 07/06/20 07/06/20 07/06/20 10:00 10:15 10:30 Temperature Pulse Rate 102 H 88 104 H Pulse Rate [ Right Dorsalis Pedis] Respiratory 22 27 H 26 H Rate Blood Pressure 111/51 121/52 114/55 O2 Sat by Pulse 95 95 95 Oximetry 07/06/20 07/06/20 07/06/20 10:45 11:00 11:15 Temperature Pulse Rate 106 H 92 H 103 H Pulse Rate [ Right Dorsalis Pedis] Respiratory 25 H 24 21 Rate Blood Pressure 105/53 114/49 108/47 O2 Sat by Pulse 95 94 96 Oximetry 07/06/20 07/06/20 07/06/20 11:30 11:45 12:00 Temperature Pulse Rate 104 H 105 H 105 H Pulse Rate [ 94 H Right Dorsalis Pedis] Respiratory 26 H 22 24 Rate Blood Pressure 112/55 123/57 123/55 O2 Sat by Pulse 95 95 91 Oximetry 07/06/20 07/06/20 13:00 13:15 Temperature 98.3 F Pulse Rate 105 H Pulse Rate [ Right Dorsalis Pedis] Respiratory Rate Blood Pressure 131/62 O2 Sat by Pulse 93 Oximetry - Labs CBC & Chem 7: 07/06/20 11:35 07/06/20 11:35 Labs: Abnormal lab results 07/06/20 07/06/20 07/06/20 Range/Units 04:29 11:35 11:35 RBC 2.54 L (3.65-5.03) M/mm3 Hgb 7.5 L (11.8-15.2) gm/dl Hct 21.5 L (35.5-45.6) % MCHC 35 H (32-34) % RDW 15.7 H (13.2-15.2) % ABG pH 7.291 L (7.320-7.450) POC ABG pCO2 51.3 H (32.0-48.0) mmHg ABG Hemoglobin 8.5 L (12.0-17.5) ABG Sodium 129.6 L (136.0-145.0) mmol/L ABG Potassium 4.8 H (3.40-4.50) mmol/L ABG Chloride 96.0 L (98-107) mmol/L Sodium 130 L (137-145) mmol/L Chloride 92.2 L (98-107) mmol/L Carbon Dioxide 19 L D (22-30) mmol/L BUN 107 H (9-20) mg/dL Creatinine 5.1 H (0.8-1.3) mg/dL Glucose 106 H (75-100) mg/dL Calcium 7.5 L (8.4-10.2) mg/dL Arterial Blood Ionized Calcium 4.2 L (4.6-5.3) mg/dL HEART Score - HEART Score Troponin: Troponin T < 0.010 ng/mL (0.00-0.029) 06/17/20 12:33
--- NOTE | 2020-07-06 15:25 | Progress Note ---
Assessment and Plan Cultures: SARS CoV2 PCR: Positive as outpatient Blood culture: no growth Sputum culture: no growth A/P: 59-year-old male with obesity, obesity hypoventilation syndrome: #Severe sepsis with septic shock: likely secondary to critical COVID-19 pneumonia. Blood cultures so far negative. ?Bacterial pneumonia component, but sputum culture with no growth. On empiric abx, steroids. Completed Remdesivir. #Critical COVID-19 pneumonia: Procalcitonin also high on admission (Now with worsening GIRISH, no longer reliable), completed empiric antibiotic course. #Acute hypoxic respiratory failure: on the vent #Transaminitis: Likely secondary to COVID-19. #GIRISH: On HD MWF, started 06/22/2020 Recs: -completed steroids, remdesivir, cefepime -if febrile again, would reculture ET aspirate, blood and start IV Cefepime + Vancomycin renally dosed -prophylactic anticoagulation based on d-dimer per hospital protocol -poor prognosis Юлия Finney MD [facility] O: [phone] F: [phone] Subjective Date of service: 07/06/20 Principal diagnosis: ARF/Septic Shock/COVID-19 PNA, AF with RVR Interval history: Afebrile, normal white count. No acute change. Remains mechanically ventilated. Objective - Exam Narrative Exam: Physical exam deferred due to PPE conservation strategy. Please refer to primary team's note. - Constitutional Vitals: Vital Signs Temp Pulse Resp BP Pulse Ox 98.3 F 105 H 24 131/62 93 07/06/20 13:00 07/06/20 13:15 07/06/20 12:00 07/06/20 13:15 07/06/20 13:15 Temperature -Last 24 Hours Temperature 98.3 F Temperature 98.4 F Temperature 98.5 F Temperature 99.2 F Temperature 98.6 F - Labs CBC & Chem 7: 07/06/20 11:35 07/06/20 11:35 Labs: Abnormal lab results 07/06/20 07/06/20 07/06/20 Range/Units 04:29 11:35 11:35 RBC 2.54 L (3.65-5.03) M/mm3 Hgb 7.5 L (11.8-15.2) gm/dl Hct 21.5 L (35.5-45.6) % MCHC 35 H (32-34) % RDW 15.7 H (13.2-15.2) % ABG pH 7.291 L (7.320-7.450) POC ABG pCO2 51.3 H (32.0-48.0) mmHg ABG Hemoglobin 8.5 L (12.0-17.5) ABG Sodium 129.6 L (136.0-145.0) mmol/L ABG Potassium 4.8 H (3.40-4.50) mmol/L ABG Chloride 96.0 L (98-107) mmol/L Sodium 130 L (137-145) mmol/L Chloride 92.2 L (98-107) mmol/L Carbon Dioxide 19 L D (22-30) mmol/L BUN 107 H (9-20) mg/dL Creatinine 5.1 H (0.8-1.3) mg/dL Glucose 106 H (75-100) mg/dL POC Glucose (70-105) mg/dL Calcium 7.5 L (8.4-10.2) mg/dL Arterial Blood Ionized Calcium 4.2 L (4.6-5.3) mg/dL 07/06/20 Range/Units 12:16 RBC (3.65-5.03) M/mm3 Hgb (11.8-15.2) gm/dl Hct (35.5-45.6) % MCHC (32-34) % RDW (13.2-15.2) % ABG pH (7.320-7.450) POC ABG pCO2 (32.0-48.0) mmHg ABG Hemoglobin (12.0-17.5) ABG Sodium (136.0-145.0) mmol/L ABG Potassium (3.40-4.50) mmol/L ABG Chloride (98-107) mmol/L Sodium (137-145) mmol/L Chloride (98-107) mmol/L Carbon Dioxide (22-30) mmol/L BUN (9-20) mg/dL Creatinine (0.8-1.3) mg/dL Glucose (75-100) mg/dL POC Glucose 106 H (70-105) mg/dL Calcium (8.4-10.2) mg/dL Arterial Blood Ionized Calcium (4.6-5.3) mg/dL
--- NOTE | 2020-07-06 16:34 | XRay Report ---
CHEST 1 VIEW 07/06/2020 3:47 PM INDICATION / CLINICAL INFORMATION: Pneumonia. COMPARISON: One view of the chest from 07/03/2020. FINDINGS: SUPPORT DEVICES: Unchanged. HEART / MEDIASTINUM: Stable. LUNGS / PLEURA: Generalized bilateral airspace opacities have slightly improved. No significant pleur al effusion. No pneumothorax. ADDITIONAL FINDINGS: No significant additional findings. IMPRESSION: Slightly improved aeration of the lungs without other significant interval changes. Signer Name: Altaf May MD Signed: 07/06/2020 4:29 PM Workstation Name: [id number]
[2020-07-06] MEDS: EPOETIN ALFA-EPBX 10,000 UNIT/1 ML VIAL IV PRN (19:56)
[2020-07-06 22:34] LABS: Calcium 7.8 mg/dL (8.4-10.2)
[2020-07-07] MEDS: INSULIN REGULAR, HUMAN 100 UNITS/1 ML SUB-Q SCH ×4 (01:41→17:49)
[2020-07-07] MEDS: dilTIAZem 30 MG TAB PO SCH ×2 (01:41→05:32)
[2020-07-07] MEDS: fentaNYL DRIP Premix 2,000 MCG/100 ML BAG IV SCH ×3 (03:56→16:12)
[2020-07-07 05:21] LABS: Hematocrit 21.5 % (35.5-45.6); Hemoglobin 7.6 gm/dl (11.8-15.2); Mean Corpuscular HGB Conc 35 % (32-34); Mean Corpuscular Volume 88 fl (84-94); Platelet Count 215 K/mm3 (140-440); Red Blood Count 2.46 M/mm3 (3.65-5.03); Red Cell Distribution Width 16.5 % (13.2-15.2)
[2020-07-07] MEDS: METOCLOPRAMIDE 10 MG/2 ML INJ IV SCH ×3 (05:32→17:58)
[2020-07-07] MEDS: HEPARIN 5,000 UNIT/1 ML VIAL SUB-Q SCH ×3 (05:43→22:10)
--- NOTE | 2020-07-07 05:44 | XRay Report ---
XR chest 1V ap INDICATION / CLINICAL INFORMATION: Pneumonia. COMPARISON: 07/06/2020 FINDINGS: SUPPORT DEVICES: Endotracheal tube terminates approximately 2.7 cm above the marnie. There is portion s of the enteric catheter are unchanged. HEART /PULMONARY VASCULATURE: Unchanged. LUNGS / PLEURA: Bilateral pulmonary opacities remain most pronounced within the lung bases, and are u nchanged from prior study. No pneumothorax. IMPRESSION: Stable appearance of the chest with lines and tubes, as above. Signer Name: Merrick Wills MD Signed: 07/07/2020 5:40 AM Workstation Name: [id number]
[2020-07-07] MEDS: SODIUM BICARBONATE 650 MG TAB PO SCH ×3 (09:34→20:45)
[2020-07-07] MEDS: DOCUSATE SODIUM 100 MG/10 ML ORAL LIQD FEEDTUBE SCH ×2 (09:35→22:13)
[2020-07-07] MEDS: AMIODARONE 900 MG in DEXTROSE 5% IN WATER 482 ML IV SCH (09:36)
[2020-07-07] MEDS: POLYETHYLENE GLYCOL 3350 17 GM POWDER PO SCH (09:36)
[2020-07-07] MEDS: CHOLECALCIFEROL (VIT D3) 1000 UNIT (25 mcg) TAB PO SCH (09:37)
[2020-07-07] MEDS: ZINC SULFATE 220 MG CAP PO SCH ×2 (09:37→22:11)
[2020-07-07] MEDS: FAMOTIDINE 20 MG/2 ML INJ IV SCH (09:37)
[2020-07-07] MEDS: QUEtiapine 200 MG TAB PO SCH ×2 (09:37→22:11)
[2020-07-07] MEDS: ASCORBIC ACID 250 MG TAB PO SCH ×2 (09:37→22:11)
[2020-07-07] MEDS: dexAMETHasone 4 MG/ML VIAL IV SCH (09:37)
[2020-07-07 10:50] LABS: Calcium 7.8 mg/dL (8.4-10.2)
--- NOTE | 2020-07-07 11:48 | Progress Note ---
Assessment and Plan D/c IV amio and increase PO cardizem with hold parameters. The patient has been seen in conjunction with Dr. Singh who agrees with the as sessment and plan of care. - Patient Problems (1) Acute respiratory failure with hypoxia Current Visit: Yes Status: Acute (2) Pneumonia due to COVID-19 virus Current Visit: Yes Status: Acute (3) Sepsis Current Visit: Yes Status: Acute Qualifiers: Severe sepsis acute organ dysfunction type: acute respiratory failure Severe sepsis shock status: with septic shock (4) Atrial fibrillation with rapid ventricular response Current Visit: Yes Status: Acute (5) Acute renal failure Current Visit: Yes Status: Acute (6) Elevated LFTs Current Visit: Yes Status: Acute (7) Anemia Current Visit: Yes Status: Acute Subjective Date of service: 07/07/20 Principal diagnosis: ARF/Septic Shock/COVID-19 PNA, AF with RVR Interval history: pt remains intubated, sedated. intermittently requiring vasopressor support. on amio gtt. tele reviewed - currently in AFib/AFlutter HR 90s. Objective Last Vital Signs Temp 98.8 F 07/07/20 08:00 Pulse 99 H 07/07/20 10:15 Resp 22 07/07/20 10:15 BP 117/69 07/07/20 10:15 Pulse Ox 94 07/07/20 10:15 - Physical Examination General: Other (intubated, lethargic) Neck: Positive: neck supple Cardiac: Positive: irregularly irregular, S1/S2 Lungs: Positive: Decreased Breath Sounds, Oxygen, Ventilated Respirations Neuro: Positive: Other (intubated, lethargic) Abdomen: Positive: Soft Skin: Negative: Rash, Wound Extremities: Present: upper extr. pulses, lower extr. pulses, +1 Edema - Labs and Meds CBC 07/06/20 07/07/20 Range/Units 11:35 05:04 WBC 10.0 7.3 (4.5-11.0) K/mm3 RBC 2.54 L 2.46 L (3.65-5.03) M/mm3 Hgb 7.5 L 7.6 L (11.8-15.2) gm/dl Hct 21.5 L 21.5 L (35.5-45.6) % Plt Count 185 215 (140-440) K/mm3 Comprehensive Metabolic Panel 07/06/20 07/06/20 07/07/20 Range/Units 11:35 21:56 10:17 Sodium 130 L 135 L 136 L (137-145) mmol/L Potassium TNR 5.1 H 4.9 Chloride 92.2 L 98.2 96.8 L (98-107) mmol/L Carbon Dioxide 19 L D 26 D 27 (22-30) mmol/L BUN 107 H 73 H 82 H (9-20) mg/dL Creatinine 5.1 H 4.0 H 4.3 H (0.8-1.3) mg/dL Glucose 106 H 112 H 129 H (75-100) mg/dL Calcium 7.5 L 7.8 L 7.8 L (8.4-10.2) mg/dL - Imaging and Cardiology EKG: report reviewed, image reviewed Echo: report reviewed (TDS, EF 55-60%. ) - Telemetry EKG Rhythm: Atrial Fibrillation - EKG Sinus rhythms and dysrhythmias: sinus tachycardia - Allied health notes Allied health notes reviewed: RT
[2020-07-07] MEDS ORDERED: dilTIAZem 30 MG TAB PO SCH (11:49)
[2020-07-07] MEDS: dilTIAZem 60 MG TAB PO SCH ×2 (13:02→17:59)
[2020-07-07 13:08] LABS: Total Cells Counted 100
[2020-07-07 13:12] LABS: Platelet Estimate Consistent w Auto; RBC Morphology Normal
--- NOTE | 2020-07-07 13:16 | Progress Note ---
Assessment and Plan Acute hypoxemic respiratory failure due to COVID-19 Severe COVID infection Severe Sepsis with shock Bilateral pneumonia Acute kidney injury (GIRISH) with acute tubular necrosis (ATN) Elevated liver enzymes Obesity - taper Reglan re: loose stools - repeat CXR reviewed and addressed - therapeutic anticoagulation remains on hold - continue HD/UF per nephrology prescription for toxin and volume clearance - keep peep at 14 - complete dexamethasone dosing re: worsening acidosis & continued positive status while trending serum inflamatory markers - continue care as below otherwise; - continue daily SAT's & SBT's as tolerated - continue tube feeds and advance to goal rate as tolerated - continue HD/UF per nephrology team for toxin and volume clearance - continue bowel regimen - rate control per cardiology team for afib RVR - Continue to wean supplemental oxygen for O2 sats >92% - Monitor blood pressure closely while optimizing sedation,wean vasopressor support for MAP > 65 mmHg - Critical care prone positioning - VAP bundle addressed, aspiration precautions HOB >40 - continue lung protective strategies, permissive hypercapnic acceptable. - continue bronchodilators with pulmonary hygiene per RT - wean per pulmonary driven protocols otherwise - accuchecks with glycemic control per SSI (While critically ill target blood glucose of 140-180 mg/dL; avoid hypoglycemia) - sedation prn for target RASS -1 to -2 - continue enteral nutritional support at goal rate as tolerated - s/p antibiotics per ID recommendations - Monitor liver function test ,avoid hepatotoxic agents - azotemia per nephrology rec's - Avoid nephrotoxins, renally dose all medications, conservative fluid management - continue to avoid benzodiazepines, reduce the possibility of delirium, - prn analgesia per CPOT score - Maintenance of sleep-wake cycle, avoid delirium - Stress ulcer prophylaxis, Famotidine - PT/OT/ROM exercises - Mobility protocols for pressure ulcer prevention - CXR, ABG in am - CBC, CMP in am - Supportive transfusions to keep HgB >7g/dL - Monitor hemodynamics closely - continue other care per attending / other consultants COVID SPECIFIC INTERVENTIONS - continue steroids: Dexamethasone - continue with Remdesivir - monitor inflammatory markers - ferritin, D-dimer, CRP, LDH per facility pro tocol - continue anticoagulation per System Protocol based on d-dimer - continue contact and airborne isolation CONDITION: CRITICAL PROGNOSIS: GUARDED CODE STATUS: FULL CODE The high probability of a clinically significant, sudden or life-threatening deterioration of the [respiratory, cardiovascular, hematologic & neurologic] system(s) required my full and direct attention, intervention and personal management. The aggregate critical care time was [33] minutes without overlap. Time includes spent on; [x] Data Review and interpretation [x] Patient assessment and monitoring of vital signs [x] Documentation [x] Medication orders and management He was evaluated in the context of the global COVID-19 pandemic, which necessitated consideration that the patient might be at risk for infection with the virus that causes COVID-19. Institutional protocols and algorithms that pertain to the evaluation of patients at risk for COVID-19 are in a state of rapid change based on information released by regulatory bodies including the CDC and federal and state organizations. These policies and algorithms were followed during the patient's care in the ICU Please note that these policies, procedures and recommendations changed on a rapid basis. Subjective Date of service: 07/07/20 Principal diagnosis: ARF/Septic Shock/COVID-19 PNA, AF with RVR Interval history: Patient is seen today for: Ac hypoxemic respiratory failure; COVID-19; Severe Sepsis with shock; Zackery. pneumonia; GIRISH; Elevated liver enzymes; Obesity Seen and examined at bedside; 24hour events reviewed; nursing and respiratory care staff consulted; no adverse overnight events reported to me; resting in bed; remains on MVS; AMS is persistent; just cleaned and work of breathing increased; no new issues otherwise Objective Vital Signs - 12hr 07/07/20 07/07/20 07/07/20 01:30 01:45 02:00 Temperature Pulse Rate 101 H 102 H 102 H Pulse Rate [ From Monitor] Pulse Rate [ Right Dorsalis Pedis] Respiratory 19 19 18 Rate Blood Pressure 106/49 106/50 119/56 O2 Sat by Pulse 97 96 96 Oximetry 07/07/20 07/07/20 07/07/20 02:15 02:30 02:45 Temperature Pulse Rate 108 H 112 H 100 H Pulse Rate [ From Monitor] Pulse Rate [ Right Dorsalis Pedis] Respiratory 19 18 19 Rate Blood Pressure 130/58 129/50 142/52 O2 Sat by Pulse 96 95 97 Oximetry 07/07/20 07/07/20 07/07/20 03:00 03:15 03:30 Temperature Pulse Rate 115 H 120 H 108 H Pulse Rate [ From Monitor] Pulse Rate [ Right Dorsalis Pedis] Respiratory 20 21 29 H Rate Blood Pressure 138/58 144/62 144/62 O2 Sat by Pulse 96 97 96 Oximetry 07/07/20 07/07/20 07/07/20 03:46 03:47 03:48 Temperature 97.7 F Pulse Rate 108 H Pulse Rate [ From Monitor] Pulse Rate [ 98 H Right Dorsalis Pedis] Respiratory 24 16 Rate Blood Pressure 152/79 O2 Sat by Pulse 94 Oximetry 07/07/20 07/07/20 07/07/20 04:00 04:16 04:30 Temperature Pulse Rate 96 H 110 H 98 H Pulse Rate [ From Monitor] Pulse Rate [ Right Dorsalis Pedis] Respiratory 20 26 H 26 H Rate Blood Pressure 148/80 157/73 132/57 O2 Sat by Pulse 94 94 95 Oximetry 07/07/20 07/07/20 07/07/20 04:46 04:47 05:00 Temperature Pulse Rate 96 H 103 H 98 H Pulse Rate [ From Monitor] Pulse Rate [ Right Dorsalis Pedis] Respiratory 26 H 22 Rate Blood Pressure 131/54 131/54 131/54 O2 Sat by Pulse 95 96 94 Oximetry 07/07/20 07/07/20 07/07/20 05:16 05:30 05:32 Temperature Pulse Rate 99 H 96 H 105 H Pulse Rate [ From Monitor] Pulse Rate [ Right Dorsalis Pedis] Respiratory 23 22 Rate Blood Pressure 115/59 116/57 116/57 O2 Sat by Pulse 96 95 Oximetry 07/07/20 07/07/20 07/07/20 05:45 06:00 06:15 Temperature Pulse Rate 105 H 91 H 93 H Pulse Rate [ From Monitor] Pulse Rate [ Right Dorsalis Pedis] Respiratory 22 22 23 Rate Blood Pressure 131/59 125/56 119/57 O2 Sat by Pulse 96 96 96 Oximetry 07/07/20 07/07/20 07/07/20 06:30 06:45 07:00 Temperature Pulse Rate 107 H 106 H 107 H Pulse Rate [ From Monitor] Pulse Rate [ Right Dorsalis Pedis] Respiratory 26 H 22 20 Rate Blood Pressure 111/60 116/46 98/51 O2 Sat by Pulse 95 96 95 Oximetry 07/07/20 07/07/20 07/07/20 07:15 07:30 07:45 Temperature Pulse Rate 90 89 91 H Pulse Rate [ From Monitor] Pulse Rate [ Right Dorsalis Pedis] Respiratory 23 22 28 H Rate Blood Pressure 107/44 114/55 104/65 O2 Sat by Pulse 96 95 95 Oximetry 07/07/20 07/07/20 07/07/20 08:00 08:15 08:24 Temperature 98.8 F Pulse Rate 102 H 96 H 107 H Pulse Rate [ 90 From Monitor] Pulse Rate [ Right Dorsalis Pedis] Respiratory 21 24 Rate Blood Pressure 111/55 128/59 128/59 O2 Sat by Pulse 94 94 94 Oximetry 07/07/20 07/07/20 07/07/20 08:30 08:45 09:00 Temperature Pulse Rate 105 H 100 H 84 Pulse Rate [ From Monitor] Pulse Rate [ Right Dorsalis Pedis] Respiratory 24 26 H 25 H Rate Blood Pressure 134/52 133/59 124/50 O2 Sat by Pulse 94 94 95 Oximetry 07/07/20 07/07/20 07/07/20 09:15 09:30 09:45 Temperature Pulse Rate 106 H 97 H 100 H Pulse Rate [ From Monitor] Pulse Rate [ Right Dorsalis Pedis] Respiratory 20 18 21 Rate Blood Pressure 112/52 112/53 120/56 O2 Sat by Pulse 95 95 96 Oximetry 07/07/20 07/07/20 07/07/20 10:00 10:15 12:00 Temperature 98.7 F Pulse Rate 98 H 99 H Pulse Rate [ From Monitor] Pulse Rate [ Right Dorsalis Pedis] Respiratory 29 H 22 Rate Blood Pressure 132/71 117/69 O2 Sat by Pulse 94 94 Oximetry Constitutional: appears uncomfortable, other (morbidly obese, atraumatic, normocephalic, mild resp distress, orally intuabted) Eyes: non-icteric ENT: oropharynx moist, other (ETT 24 cm TROY + blood crusted lips) Neck: supple, no lymphadenopathy, other (Large , short neck) Effort: mildly labored Ascultation: Bilateral: diminished breath sounds, rhonchi (scant) Percussion: Bilateral: not dull Cardiovascular: irregular rhythm, other (S1,S2) Gastrointestinal: normoactive bowel sounds, non-distended (protuberant), other (OG Tube) Integumentary: rash, other (Femoral CVC, Newell catheter) Extremities: no edema, pink and warm, pulses normal, no ischemia or petechiae, edema (trace to 1+) Neurologic: non-focal exam (grossly), pupils equal and round, other (unable to a ssess, sedated) Psychiatric: other (unable to assess, sedated) CBC and BMP: 07/08/20 04:00 07/08/20 04:00 ABG, PT/INR, D-dimer: ABG ABG pH 7.368 (7.320-7.450) 07/07/20 04:18 POC ABG pCO2 46.9 mmHg (32.0-48.0) 07/07/20 04:18 ABG pCO2 56.4 mm Hg 07/05/20 04:30 POC ABG pO2 79.6 mmHg (83-108) L 07/07/20 04:18 ABG pO2 151.9 mm Hg (80.0-90.0) H 07/05/20 04:30 POC ABG HCO3 26.4 07/07/20 04:18 ABG O2 Saturation 98.7 % (95.0-99.0) 07/05/20 04:30 PT/INR, D-dimer PT 17.4 Sec. (12.2-14.9) H 06/26/20 05:47 INR 1.44 (0.87-1.13) H 06/26/20 05:47 D-Dimer 6608.00 ng/mlDDU (0-234) H 07/03/20 14:50 Abnormal lab findings: Abnormal Labs 06/17/20 06/17/20 06/17/20 12:33 12:33 12:33 WBC 19.5 H RBC 5.18 H Hgb 15.5 H Hct MCHC RDW Lymph % (Auto) 3.8 L Lymph # (Auto) 0.7 L [place] # (Auto) Seg Neutrophils % Seg Neuts % (Manual) 99.0 H Lymphocytes % (Manual) 1.0 L Nucleated RBC % Seg Neutrophils # 18.2 H Seg Neutrophils # Man 19.3 H Lymphocytes # (Manual) 0.2 L Monocytes # (Manual) PT 16.5 H INR 1.33 H APTT D-Dimer 1025.04 H Heparin Anti-Xa Level ABG pH POC ABG pCO2 POC ABG pO2 ABG pO2 ABG HCO3 ABG Hemoglobin ABG Oxyhemoglobin ABG Sodium ABG Potassium ABG Chloride ABG Glucose Carboxyhemoglobin Sodium 130 L Potassium 3.4 L Chloride 95.0 L Carbon Dioxide BUN 21 H Creatinine Glucose 137 H POC Glucose Lactic Acid Calcium 7.9 L Phosphorus Magnesium Ferritin Direct Bilirubin AST 84 H ALT 67 H Lactate Dehydrogenase 437 H Total Creatine Kinase 310 H C-Reactive Protein 27.90 H Total Protein Albumin 2.9 L Triglycerides Arterial Blood Glucose Arterial Blood Ionized Calcium Urine Creatinine Urine Chloride Vancomycin Trough Coronavirus (PCR) Crossmatch 06/17/20 06/17/20 06/17/20 12:33 12:33 14:48 WBC RBC Hgb Hct MCHC RDW Lymph % (Auto) Lymph # (Auto) [place] # (Auto) Seg Neutrophils % Seg Neuts % (Manual) Lymphocytes % (Manual) Nucleated RBC % Seg Neutrophils # Seg Neutrophils # Man Lymphocytes # (Manual) Monocytes # (Manual) PT INR APTT D-Dimer Heparin Anti-Xa Level ABG pH POC ABG pCO2 POC ABG pO2 ABG pO2 ABG HCO3 ABG Hemoglobin ABG Oxyhemoglobin ABG Sodium ABG Potassium ABG Chloride ABG Glucose Carboxyhemoglobin Sodium Potassium Chloride Carbon Dioxide BUN Creatinine Glucose POC Glucose Lactic Acid 2.50 H* 2.20 H* Calcium Phosphorus Magnesium Ferritin 2297.0 H Direct Bilirubin AST ALT Lactate Dehydrogenase Total Creatine Kinase C-Reactive Protein Total Protein Albumin Triglycerides Arterial Blood Glucose Arterial Blood Ionized Calcium Urine Creatinine Urine Chloride Vancomycin Trough Coronavirus (PCR) Crossmatch 06/17/20 06/17/20 06/17/20 14:48 14:48 14:48 WBC RBC Hgb Hct MCHC RDW Lymph % (Auto) Lymph # (Auto) [place] # (Auto) Seg Neutrophils % Seg Neuts % (Manual) Lymphocytes % (Manual) Nucleated RBC % Seg Neutrophils # Seg Neutrophils # Man Lymphocytes # (Manual) Monocytes # (Manual) PT INR APTT D-Dimer 939.89 H Heparin Anti-Xa Level ABG pH POC ABG pCO2 POC ABG pO2 ABG pO2 ABG HCO3 ABG Hemoglobin ABG Oxyhemoglobin ABG Sodium ABG Potassium ABG Chloride ABG Glucose Carboxyhemoglobin Sodium Potassium Chloride Carbon Dioxide BUN Creatinine Glucose 141 H POC Glucose Lactic Acid Calcium Phosphorus Magnesium Ferritin > 2000.0 H Direct Bilirubin AST ALT Lactate Dehydrogenase 503 H Total Creatine Kinase C-Reactive Protein 24.70 H Total Protein Albumin Triglycerides Arterial Blood Glucose Arterial Blood Ionized Calcium Urine Creatinine Urine Chloride Vancomycin Trough Coronavirus (PCR) Crossmatch 06/17/20 06/17/20 06/17/20 16:54 19:39 23:43 WBC RBC Hgb Hct MCHC RDW Lymph % (Auto) Lymph # (Auto) [place] # (Auto) Seg Neutrophils % Seg Neuts % (Manual) Lymphocytes % (Manual) Nucleated RBC % Seg Neutrophils # Seg Neutrophils # Man Lymphocytes # (Manual) Monocytes # (Manual) PT INR APTT D-Dimer Heparin Anti-Xa Level ABG pH 7.571 H POC ABG pCO2 24.3 L POC ABG pO2 41.6 L ABG pO2 ABG HCO3 ABG Hemoglobin ABG Oxyhemoglobin 84.0 L ABG Sodium 131.0 L ABG Potassium ABG Chloride ABG Glucose 163 H Carboxyhemoglobin Sodium Potassium Chloride Carbon Dioxide BUN Creatinine Glucose POC Glucose 185 H Lactic Acid 2.10 H* Calcium Phosphorus Magnesium Ferritin Direct Bilirubin AST ALT Lactate Dehydrogenase Total Creatine Kinase C-Reactive Protein Total Protein Albumin Triglycerides Arterial Blood Glucose 163 H Arterial Blood Ionized Calcium 4.4 L Urine Creatinine Urine Chloride Vancomycin Trough Coronavirus (PCR) Crossmatch 06/18/20 06/18/20 06/18/20 00:17 00:23 03:55 WBC RBC Hgb Hct MCHC RDW Lymph % (Auto) Lymph # (Auto) [place] # (Auto) Seg Neutrophils % Seg Neuts % (Manual) Lymphocytes % (Manual) Nucleated RBC % Seg Neutrophils # Seg Neutrophils # Man Lymphocytes # (Manual) Monocytes # (Manual) PT INR APTT D-Dimer Heparin Anti-Xa Level ABG pH POC ABG pCO2 POC ABG pO2 56.5 L 48.3 L ABG pO2 ABG HCO3 ABG Hemoglobin ABG Oxyhemoglobin 86.3 L 81.7 L ABG Sodium 132.9 L 131.0 L ABG Potassium ABG Chloride ABG Glucose 189 H 161 H Carboxyhemoglobin 0.4 L Sodium Potassium Chloride Carbon Dioxide BUN Creatinine Glucose POC Glucose Lactic Acid 3.80 H* Calcium Phosphorus Magnesium Ferritin Direct Bilirubin AST ALT Lactate Dehydrogenase Total Creatine Kinase C-Reactive Protein Total Protein Albumin Triglycerides Arterial Blood Glucose 189 H 161 H Arterial Blood Ionized Calcium 4.3 L 4.2 L Urine Creatinine Urine Chloride Vancomycin Trough Coronavirus (PCR) Crossmatch 06/18/20 06/18/20 06/18/20 05:39 05:39 05:39 WBC 26.2 H RBC Hgb Hct MCHC RDW Lymph % (Auto) Lymph # (Auto) [place] # (Auto) Seg Neutrophils % Seg Neuts % (Manual) 90.0 H Lymphocytes % (Manual) 5.0 L Nucleated RBC % Seg Neutrophils # Seg Neutrophils # Man 23.6 H Lymphocytes # (Manual) Monocytes # (Manual) 1.3 H PT INR APTT D-Dimer Heparin Anti-Xa Level ABG pH POC ABG pCO2 POC ABG pO2 ABG pO2 ABG HCO3 ABG Hemoglobin ABG Oxyhemoglobin ABG Sodium ABG Potassium ABG Chloride ABG Glucose Carboxyhemoglobin Sodium 135 L Potassium Chloride 97.5 L Carbon Dioxide 21 L BUN 39 H Creatinine 1.7 H D Glucose 168 H POC Glucose Lactic Acid 3.40 H* Calcium 7.2 L Phosphorus Magnesium Ferritin Direct Bilirubin AST ALT Lactate Dehydrogenase Total Creatine Kinase C-Reactive Protein Total Protein Albumin Triglycerides Arterial Blood Glucose Arterial Blood Ionized Calcium Urine Creatinine Urine Chloride Vancomycin Trough Coronavirus (PCR) Crossmatch 06/18/20 06/18/20 06/18/20 07:24 09:00 10:10 WBC RBC Hgb Hct MCHC RDW Lymph % (Auto) Lymph # (Auto) [place] # (Auto) Seg Neutrophils % Seg Neuts % (Manual) Lymphocytes % (Manual) Nucleated RBC % Seg Neutrophils # Seg Neutrophils # Man Lymphocytes # (Manual) Monocytes # (Manual) PT INR APTT D-Dimer Heparin Anti-Xa Level ABG pH POC ABG pCO2 POC ABG pO2 ABG pO2 ABG HCO3 ABG Hemoglobin ABG Oxyhemoglobin ABG Sodium ABG Potassium ABG Chloride ABG Glucose Carboxyhemoglobin Sodium Potassium Chloride Carbon Dioxide BUN Creatinine Glucose POC Glucose Lactic Acid 2.90 H* 3.20 H* Calcium Phosphorus Magnesium Ferritin Direct Bilirubin AST ALT Lactate Dehydrogenase Total Creatine Kinase C-Reactive Protein Total Protein Albumin Triglycerides Arterial Blood Glucose Arterial Blood Ionized Calcium Urine Creatinine Urine Chloride Vancomycin Trough Coronavirus (PCR) Positive A Crossmatch 06/18/20 06/18/20 06/18/20 11:58 14:43 15:00 WBC RBC Hgb Hct MCHC RDW Lymph % (Auto) Lymph # (Auto) [place] # (Auto) Seg Neutrophils % Seg Neuts % (Manual) Lymphocytes % (Manual) Nucleated RBC % Seg Neutrophils # Seg Neutrophils # Man Lymphocytes # (Manual) Monocytes # (Manual) PT INR APTT D-Dimer Heparin Anti-Xa Level ABG pH 7.303 L POC ABG pCO2 POC ABG pO2 82.3 L ABG pO2 ABG HCO3 ABG Hemoglobin ABG Oxyhemoglobin ABG Sodium 135.3 L ABG Potassium ABG Chloride ABG Glucose 215 H Carboxyhemoglobin 0.3 L Sodium Potassium Chloride Carbon Dioxide BUN Creatinine Glucose POC Glucose 209 H Lactic Acid Calcium Phosphorus Magnesium Ferritin Direct Bilirubin AST ALT Lactate Dehydrogenase Total Creatine Kinase C-Reactive Protein Total Protein Albumin Triglycerides Arterial Blood Glucose 215 H Arterial Blood Ionized Calcium 4.2 L Urine Creatinine 192.4 H Urine Chloride 31.1 L Vancomycin Trough Coronavirus (PCR) Crossmatch 06/18/20 06/18/20 06/18/20 17:16 19:44 20:33 WBC RBC Hgb Hct MCHC RDW Lymph % (Auto) Lymph # (Auto) [place] # (Auto) Seg Neutrophils % Seg Neuts % (Manual) Lymphocytes % (Manual) Nucleated RBC % Seg Neutrophils # Seg Neutrophils # Man Lymphocytes # (Manual) Monocytes # (Manual) PT INR APTT D-Dimer Heparin Anti-Xa Level ABG pH POC ABG pCO2 POC ABG pO2 ABG pO2 ABG HCO3 ABG Hemoglobin ABG Oxyhemoglobin ABG Sodium ABG Potassium ABG Chloride ABG Glucose Carboxyhemoglobin Sodium Potassium Chloride Carbon Dioxide BUN Creatinine Glucose POC Glucose 182 H Lactic Acid 3.00 H* Calcium Phosphorus Magnesium 2.70 H Ferritin Direct Bilirubin AST ALT Lactate Dehydrogenase Total Creatine Kinase C-Reactive Protein Total Protein Albumin Triglycerides Arterial Blood Glucose Arterial Blood Ionized Calcium Urine Creatinine Urine Chloride Vancomycin Trough Coronavirus (PCR) Crossmatch 06/18/20 06/19/20 06/19/20 23:43 04:00 04:00 WBC 31.6 H RBC Hgb Hct MCHC RDW Lymph % (Auto) Lymph # (Auto) [place] # (Auto) Seg Neutrophils % Seg Neuts % (Manual) 98.0 H Lymphocytes % (Manual) 0.5 L Nucleated RBC % Seg Neutrophils # Seg Neutrophils # Man 31.0 H Lymphocytes # (Manual) 0.2 L Monocytes # (Manual) PT INR APTT D-Dimer Heparin Anti-Xa Level ABG pH POC ABG pCO2 POC ABG pO2 ABG pO2 ABG HCO3 ABG Hemoglobin ABG Oxyhemoglobin ABG Sodium ABG Potassium ABG Chloride ABG Glucose Carboxyhemoglobin Sodium Potassium Chloride Carbon Dioxide BUN 56 H Creatinine 1.6 H Glucose 176 H POC Glucose 149 H Lactic Acid Calcium 7.0 L Phosphorus Magnesium Ferritin Direct Bilirubin AST 244 H ALT 159 H Lactate Dehydrogenase Total Creatine Kinase C-Reactive Protein Total Protein 4.9 L D Albumin 2.5 L Triglycerides Arterial Blood Glucose Arterial Blood Ionized Calcium Urine Creatinine Urine Chloride Vancomycin Trough Coronavirus (PCR) Crossmatch 06/19/20 06/19/20 06/19/20 04:00 05:44 11:42 WBC RBC Hgb Hct MCHC RDW Lymph % (Auto) Lymph # (Auto) [place] # (Auto) Seg Neutrophils % Seg Neuts % (Manual) Lymphocytes % (Manual) Nucleated RBC % Seg Neutrophils # Seg Neutrophils # Man Lymphocytes # (Manual) Monocytes # (Manual) PT INR APTT D-Dimer Heparin Anti-Xa Level ABG pH 7.265 L POC ABG pCO2 51.8 H POC ABG pO2 65.1 L ABG pO2 ABG HCO3 ABG Hemoglobin ABG Oxyhemoglobin ABG Sodium ABG Potassium ABG Chloride ABG Glucose 184 H Carboxyhemoglobin Sodium Potassium Chloride Carbon Dioxide BUN Creatinine Glucose POC Glucose 156 H 191 H Lactic Acid Calcium Phosphorus Magnesium Ferritin Direct Bilirubin AST ALT Lactate Dehydrogenase Total Creatine Kinase C-Reactive Protein Total Protein Albumin Triglycerides Arterial Blood Glucose 184 H Arterial Blood Ionized Calcium 4.3 L Urine Creatinine Urine Chloride Vancomycin Trough Coronavirus (PCR) Crossmatch 06/19/20 06/19/20 06/19/20 12:30 17:16 18:36 WBC RBC Hgb Hct MCHC RDW Lymph % (Auto) Lymph # (Auto) [place] # (Auto) Seg Neutrophils % Seg Neuts % (Manual) Lymphocytes % (Manual) Nucleated RBC % Seg Neutrophils # Seg Neutrophils # Man Lymphocytes # (Manual) Monocytes # (Manual) PT 16.4 H INR 1.32 H APTT D-Dimer Heparin Anti-Xa Level ABG pH 7.088 L POC ABG pCO2 78.1 H POC ABG pO2 208.3 H ABG pO2 ABG HCO3 ABG Hemoglobin ABG Oxyhemoglobin 98.3 H ABG Sodium ABG Potassium 5.0 H ABG Chloride ABG Glucose 182 H Carboxyhemoglobin 0.4 L Sodium Potassium Chloride Carbon Dioxide BUN Creatinine Glucose POC Glucose 154 H Lactic Acid Calcium Phosphorus Magnesium Ferritin Direct Bilirubin AST ALT Lactate Dehydrogenase Total Creatine Kinase C-Reactive Protein Total Protein Albumin Triglycerides Arterial Blood Glucose 182 H Arterial Blood Ionized Calcium 4.3 L Urine Creatinine Urine Chloride Vancomycin Trough Coronavirus (PCR) Crossmatch 06/19/20 06/20/20 06/20/20 23:32 03:00 05:19 WBC RBC Hgb Hct MCHC RDW Lymph % (Auto) Lymph # (Auto) [place] # (Auto) Seg Neutrophils % Seg Neuts % (Manual) Lymphocytes % (Manual) Nucleated RBC % Seg Neutrophils # Seg Neutrophils # Man Lymphocytes # (Manual) Monocytes # (Manual) PT INR APTT D-Dimer Heparin Anti-Xa Level 0.77 H ABG pH POC ABG pCO2 POC ABG pO2 ABG pO2 ABG HCO3 ABG Hemoglobin ABG Oxyhemoglobin ABG Sodium ABG Potassium ABG Chloride ABG Glucose Carboxyhemoglobin Sodium Potassium Chloride Carbon Dioxide BUN Creatinine Glucose POC Glucose 201 H 190 H Lactic Acid Calcium Phosphorus Magnesium Ferritin Direct Bilirubin AST ALT Lactate Dehydrogenase Total Creatine Kinase C-Reactive Protein Total Protein Albumin Triglycerides Arterial Blood Glucose Arterial Blood Ionized Calcium Urine Creatinine Urine Chloride Vancomycin Trough Coronavirus (PCR) Crossmatch 06/20/20 06/20/20 06/20/20 08:25 08:25 11:36 WBC RBC Hgb Hct MCHC RDW Lymph % (Auto) Lymph # (Auto) [place] # (Auto) Seg Neutrophils % Seg Neuts % (Manual) Lymphocytes % (Manual) Nucleated RBC % Seg Neutrophils # Seg Neutrophils # Man Lymphocytes # (Manual) Monocytes # (Manual) PT INR APTT D-Dimer Heparin Anti-Xa Level ABG pH POC ABG pCO2 POC ABG pO2 ABG pO2 ABG HCO3 ABG Hemoglobin ABG Oxyhemoglobin ABG Sodium ABG Potassium ABG Chloride ABG Glucose Carboxyhemoglobin Sodium 135 L Potassium 5.4 H Chloride 109.2 H Carbon Dioxide 19 L BUN 68 H Creatinine 2.5 H D Glucose 201 H POC Glucose 184 H Lactic Acid Calcium 5.5 L* D Phosphorus Magnesium Ferritin Direct Bilirubin AST 123 H ALT 86 H Lactate Dehydrogenase Total Creatine Kinase C-Reactive Protein Total Protein 4.6 L Albumin 1.5 L Triglycerides Arterial Blood Glucose Arterial Blood Ionized Calcium Urine Creatinine Urine Chloride Vancomycin Trough 22.7 H Coronavirus (PCR) Crossmatch 06/20/20 06/20/20 06/20/20 11:40 17:28 20:00 WBC RBC Hgb Hct MCHC RDW Lymph % (Auto) Lymph # (Auto) [place] # (Auto) Seg Neutrophils % Seg Neuts % (Manual) Lymphocytes % (Manual) Nucleated RBC % Seg Neutrophils # Seg Neutrophils # Man Lymphocytes # (Manual) Monocytes # (Manual) PT INR APTT D-Dimer Heparin Anti-Xa Level 0.89 H ABG pH 7.099 L POC ABG pCO2 61.1 H POC ABG pO2 ABG pO2 ABG HCO3 ABG Hemoglobin ABG Oxyhemoglobin ABG Sodium ABG Potassium 5.0 H ABG Chloride 111.0 H ABG Glucose 200 H Carboxyhemoglobin 0.4 L Sodium Potassium Chloride Carbon Dioxide BUN Creatinine Glucose POC Glucose 165 H Lactic Acid Calcium Phosphorus Magnesium Ferritin Direct Bilirubin AST ALT Lactate Dehydrogenase Total Creatine Kinase C-Reactive Protein Total Protein Albumin Triglycerides Arterial Blood Glucose 200 H Arterial Blood Ionized Calcium 4.2 L Urine Creatinine Urine Chloride Vancomycin Trough Coronavirus (PCR) Crossmatch 06/20/20 06/21/20 06/21/20 23:29 05:00 05:20 WBC RBC Hgb Hct MCHC RDW Lymph % (Auto) Lymph # (Auto) [place] # (Auto) Seg Neutrophils % Seg Neuts % (Manual) Lymphocytes % (Manual) Nucleated RBC % Seg Neutrophils # Seg Neutrophils # Man Lymphocytes # (Manual) Monocytes # (Manual) PT INR APTT D-Dimer Heparin Anti-Xa Level ABG pH POC ABG pCO2 POC ABG pO2 ABG pO2 ABG HCO3 ABG Hemoglobin ABG Oxyhemoglobin ABG Sodium ABG Potassium ABG Chloride ABG Glucose Carboxyhemoglobin Sodium Potassium Chloride 112.0 H Carbon Dioxide 20 L BUN 92 H Creatinine 3.9 H D Glucose 214 H POC Glucose 145 H 191 H Lactic Acid Calcium 6.5 L D Phosphorus Magnesium Ferritin Direct Bilirubin AST 98 H ALT 84 H Lactate Dehydrogenase Total Creatine Kinase C-Reactive Protein Total Protein 4.6 L Albumin 2.1 L Triglycerides 180 H Arterial Blood Glucose Arterial Blood Ionized Calcium Urine Creatinine Urine Chloride Vancomycin Trough Coronavirus (PCR) Crossmatch 06/21/20 06/21/20 06/21/20 08:56 11:12 12:43 WBC RBC Hgb Hct MCHC RDW Lymph % (Auto) Lymph # (Auto) [place] # (Auto) Seg Neutrophils % Seg Neuts % (Manual) Lymphocytes % (Manual) Nucleated RBC % Seg Neutrophils # Seg Neutrophils # Man Lymphocytes # (Manual) Monocytes # (Manual) PT INR APTT D-Dimer Heparin Anti-Xa Level 0.28 L ABG pH 7.184 L POC ABG pCO2 48.3 H POC ABG pO2 172.1 H ABG pO2 ABG HCO3 ABG Hemoglobin ABG Oxyhemoglobin 98.7 H ABG Sodium ABG Potassium 4.9 H ABG Chloride 112.0 H ABG Glucose 196 H Carboxyhemoglobin 0.2 L Sodium Potassium Chloride Carbon Dioxide BUN Creatinine Glucose POC Glucose 177 H Lactic Acid Calcium Phosphorus Magnesium Ferritin Direct Bilirubin AST ALT Lactate Dehydrogenase Total Creatine Kinase C-Reactive Protein Total Protein Albumin Triglycerides Arterial Blood Glucose 196 H Arterial Blood Ionized Calcium 4.1 L Urine Creatinine Urine Chloride Vancomycin Trough Coronavirus (PCR) Crossmatch 06/21/20 06/21/20 06/22/20 16:31 Unknown 00:12 WBC RBC Hgb Hct MCHC RDW Lymph % (Auto) Lymph # (Auto) [place] # (Auto) Seg Neutrophils % Seg Neuts % (Manual) Lymphocytes % (Manual) Nucleated RBC % Seg Neutrophils # Seg Neutrophils # Man Lymphocytes # (Manual) Monocytes # (Manual) PT INR APTT D-Dimer Heparin Anti-Xa Level 0.78 H ABG pH POC ABG pCO2 POC ABG pO2 ABG pO2 ABG HCO3 ABG Hemoglobin ABG Oxyhemoglobin ABG Sodium ABG Potassium ABG Chloride ABG Glucose Carboxyhemoglobin Sodium Potassium Chloride Carbon Dioxide BUN Creatinine Glucose POC Glucose 150 H 173 H Lactic Acid Calcium Phosphorus Magnesium Ferritin Direct Bilirubin AST ALT Lactate Dehydrogenase Total Creatine Kinase C-Reactive Protein Total Protein Albumin Triglycerides Arterial Blood Glucose Arterial Blood Ionized Calcium Urine Creatinine Urine Chloride Vancomycin Trough Coronavirus (PCR) Crossmatch 06/22/20 06/22/20 06/22/20 04:00 05:04 05:30 WBC 33.9 H RBC Hgb 11.7 L Hct 35.2 L MCHC RDW 15.8 H Lymph % (Auto) Lymph # (Auto) [place] # (Auto) Seg Neutrophils % Seg Neuts % (Manual) 93.0 H Lymphocytes % (Manual) 5.0 L Nucleated RBC % Seg Neutrophils # Seg Neutrophils # Man 31.5 H Lymphocytes # (Manual) Monocytes # (Manual) PT INR APTT D-Dimer Heparin Anti-Xa Level ABG pH 7.169 L POC ABG pCO2 POC ABG pO2 ABG pO2 ABG HCO3 ABG Hemoglobin ABG Oxyhemoglobin ABG Sodium ABG Potassium 5.1 H ABG Chloride 112.0 H ABG Glucose 186 H Carboxyhemoglobin 0.3 L Sodium Potassium Chloride Carbon Dioxide BUN Creatinine Glucose POC Glucose 161 H Lactic Acid Calcium Phosphorus Magnesium Ferritin Direct Bilirubin AST ALT Lactate Dehydrogenase Total Creatine Kinase C-Reactive Protein Total Protein Albumin Triglycerides Arterial Blood Glucose 186 H Arterial Blood Ionized Calcium 4.1 L Urine Creatinine Urine Chloride Vancomycin Trough Coronavirus (PCR) Crossmatch 06/22/20 06/22/20 06/22/20 05:30 11:39 13:27 WBC RBC Hgb Hct MCHC RDW Lymph % (Auto) Lymph # (Auto) [place] # (Auto) Seg Neutrophils % Seg Neuts % (Manual) Lymphocytes % (Manual) Nucleated RBC % Seg Neutrophils # Seg Neutrophils # Man Lymphocytes # (Manual) Monocytes # (Manual) PT INR APTT D-Dimer Heparin Anti-Xa Level ABG pH POC ABG pCO2 POC ABG pO2 ABG pO2 ABG HCO3 ABG Hemoglobin ABG Oxyhemoglobin ABG Sodium ABG Potassium ABG Chloride ABG Glucose Carboxyhemoglobin Sodium Potassium 5.7 H Chloride 111.3 H Carbon Dioxide 18 L BUN 112 H Creatinine 5.0 H Glucose 173 H POC Glucose 172 H 176 H Lactic Acid Calcium 6.7 L Phosphorus Magnesium Ferritin Direct Bilirubin AST ALT Lactate Dehydrogenase Total Creatine Kinase C-Reactive Protein Total Protein Albumin Triglycerides Arterial Blood Glucose Arterial Blood Ionized Calcium Urine Creatinine Urine Chloride Vancomycin Trough Coronavirus (PCR) Crossmatch 06/22/20 06/22/20 06/22/20 14:37 17:00 17:40 WBC RBC Hgb Hct MCHC RDW Lymph % (Auto) Lymph # (Auto) [place] # (Auto) Seg Neutrophils % Seg Neuts % (Manual) Lymphocytes % (Manual) Nucleated RBC % Seg Neutrophils # Seg Neutrophils # Man Lymphocytes # (Manual) Monocytes # (Manual) PT INR APTT D-Dimer Heparin Anti-Xa Level 1.32 H ABG pH POC ABG pCO2 POC ABG pO2 ABG pO2 ABG HCO3 ABG Hemoglobin ABG Oxyhemoglobin ABG Sodium ABG Potassium ABG Chloride ABG Glucose Carboxyhemoglobin Sodium Potassium Chloride Carbon Dioxide BUN Creatinine Glucose POC Glucose 171 H Lactic Acid Calcium Phosphorus Magnesium Ferritin Direct Bilirubin AST ALT Lactate Dehydrogenase Total Creatine Kinase C-Reactive Protein 5.30 H Total Protein Albumin Triglycerides Arterial Blood Glucose Arterial Blood Ionized Calcium Urine Creatinine Urine Chloride Vancomycin Trough Coronavirus (PCR) Crossmatch 06/22/20 06/23/20 06/23/20 23:36 02:13 02:41 WBC RBC Hgb Hct MCHC RDW Lymph % (Auto) Lymph # (Auto) [place] # (Auto) Seg Neutrophils % Seg Neuts % (Manual) Lymphocytes % (Manual) Nucleated RBC % Seg Neutrophils # Seg Neutrophils # Man Lymphocytes # (Manual) Monocytes # (Manual) PT INR APTT D-Dimer Heparin Anti-Xa Level 0.21 L ABG pH 7.318 L POC ABG pCO2 POC ABG pO2 157.5 H ABG pO2 ABG HCO3 ABG Hemoglobin ABG Oxyhemoglobin ABG Sodium 135.6 L ABG Potassium 4.6 H ABG Chloride 110.0 H ABG Glucose 169 H Carboxyhemoglobin Sodium Potassium Chloride Carbon Dioxide BUN Creatinine Glucose POC Glucose 155 H Lactic Acid Calcium Phosphorus Magnesium Ferritin Direct Bilirubin AST ALT Lactate Dehydrogenase Total Creatine Kinase C-Reactive Protein Total Protein Albumin Triglycerides Arterial Blood Glucose 169 H Arterial Blood Ionized Calcium Urine Creatinine Urine Chloride Vancomycin Trough Coronavirus (PCR) Crossmatch 06/23/20 06/23/20 06/23/20 04:00 04:00 05:24 WBC 27.4 H RBC Hgb 11.3 L Hct 33.8 L MCHC RDW Lymph % (Auto) Lymph # (Auto) [place] # (Auto) Seg Neutrophils % Seg Neuts % (Manual) 93.0 H Lymphocytes % (Manual) 1.0 L Nucleated RBC % 1.0 H Seg Neutrophils # Seg Neutrophils # Man 25.5 H Lymphocytes # (Manual) 0.3 L Monocytes # (Manual) 1.1 H PT INR APTT D-Dimer Heparin Anti-Xa Level ABG pH POC ABG pCO2 POC ABG pO2 ABG pO2 ABG HCO3 ABG Hemoglobin ABG Oxyhemoglobin ABG Sodium ABG Potassium ABG Chloride ABG Glucose Carboxyhemoglobin Sodium Potassium Chloride 107.6 H Carbon Dioxide 20 L BUN 100 H Creatinine 4.7 H Glucose 168 H POC Glucose 151 H Lactic Acid Calcium Phosphorus Magnesium Ferritin Direct Bilirubin AST ALT Lactate Dehydrogenase Total Creatine Kinase C-Reactive Protein Total Protein Albumin Triglycerides Arterial Blood Glucose Arterial Blood Ionized Calcium Urine Creatinine Urine Chloride Vancomycin Trough Coronavirus (PCR) Crossmatch 06/23/20 06/23/20 06/23/20 11:30 17:18 23:50 WBC RBC Hgb Hct MCHC RDW Lymph % (Auto) Lymph # (Auto) [place] # (Auto) Seg Neutrophils % Seg Neuts % (Manual) Lymphocytes % (Manual) Nucleated RBC % Seg Neutrophils # Seg Neutrophils # Man Lymphocytes # (Manual) Monocytes # (Manual) PT INR APTT D-Dimer Heparin Anti-Xa Level ABG pH POC ABG pCO2 POC ABG pO2 ABG pO2 ABG HCO3 ABG Hemoglobin ABG Oxyhemoglobin ABG Sodium ABG Potassium ABG Chloride ABG Glucose Carboxyhemoglobin Sodium Potassium Chloride Carbon Dioxide BUN Creatinine Glucose POC Glucose 157 H 156 H 162 H Lactic Acid Calcium Phosphorus Magnesium Ferritin Direct Bilirubin AST ALT Lactate Dehydrogenase Total Creatine Kinase C-Reactive Protein Total Protein Albumin Triglycerides Arterial Blood Glucose Arterial Blood Ionized Calcium Urine Creatinine Urine Chloride Vancomycin Trough Coronavirus (PCR) Crossmatch 06/24/20 06/24/20 06/24/20 04:41 05:57 06:30 WBC 34.3 H RBC Hgb 10.9 L Hct 32.6 L MCHC RDW Lymph % (Auto) 2.0 L Lymph # (Auto) 0.7 L [place] # (Auto) 1.2 H Seg Neutrophils % Seg Neuts % (Manual) 96.0 H Lymphocytes % (Manual) 3.0 L Nucleated RBC % Seg Neutrophils # 32.3 H Seg Neutrophils # Man 32.9 H Lymphocytes # (Manual) 1.0 L Monocytes # (Manual) PT INR APTT D-Dimer Heparin Anti-Xa Level ABG pH POC ABG pCO2 POC ABG pO2 71.1 L ABG pO2 ABG HCO3 ABG Hemoglobin ABG Oxyhemoglobin 92.4 L ABG Sodium 115.6 L ABG Potassium ABG Chloride ABG Glucose 159 H Carboxyhemoglobin Sodium Potassium Chloride Carbon Dioxide BUN Creatinine Glucose POC Glucose 143 H Lactic Acid Calcium Phosphorus Magnesium Ferritin Direct Bilirubin AST ALT Lactate Dehydrogenase Total Creatine Kinase C-Reactive Protein Total Protein Albumin Triglycerides Arterial Blood Glucose 159 H Arterial Blood Ionized Calcium 4.2 L Urine Creatinine Urine Chloride Vancomycin Trough Coronavirus (PCR) Crossmatch 06/24/20 06/24/20 06/24/20 07:03 09:37 11:56 WBC RBC Hgb Hct MCHC RDW Lymph % (Auto) Lymph # (Auto) [place] # (Auto) Seg Neutrophils % Seg Neuts % (Manual) Lymphocytes % (Manual) Nucleated RBC % Seg Neutrophils # Seg Neutrophils # Man Lymphocytes # (Manual) Monocytes # (Manual) PT INR APTT D-Dimer Heparin Anti-Xa Level 0.26 L ABG pH POC ABG pCO2 POC ABG pO2 ABG pO2 ABG HCO3 ABG Hemoglobin ABG Oxyhemoglobin ABG Sodium ABG Potassium ABG Chloride ABG Glucose Carboxyhemoglobin Sodium Potassium 5.1 H Chloride Carbon Dioxide BUN 103 H Creatinine 5.0 H Glucose 163 H POC Glucose 149 H Lactic Acid Calcium 7.6 L Phosphorus Magnesium Ferritin Direct Bilirubin AST ALT Lactate Dehydrogenase Total Creatine Kinase C-Reactive Protein Total Protein Albumin Triglycerides Arterial Blood Glucose Arterial Blood Ionized Calcium Urine Creatinine Urine Chloride Vancomycin Trough Coronavirus (PCR) Crossmatch 06/24/20 06/25/20 06/25/20 18:09 01:05 03:00 WBC RBC Hgb 10.6 L Hct 32.1 L MCHC RDW Lymph % (Auto) Lymph # (Auto) [place] # (Auto) Seg Neutrophils % Seg Neuts % (Manual) Lymphocytes % (Manual) Nucleated RBC % Seg Neutrophils # Seg Neutrophils # Man Lymphocytes # (Manual) Monocytes # (Manual) PT INR APTT D-Dimer Heparin Anti-Xa Level ABG pH POC ABG pCO2 POC ABG pO2 ABG pO2 ABG HCO3 ABG Hemoglobin ABG Oxyhemoglobin ABG Sodium ABG Potassium ABG Chloride ABG Glucose Carboxyhemoglobin Sodium Potassium Chloride Carbon Dioxide BUN Creatinine Glucose POC Glucose 141 H 137 H Lactic Acid Calcium Phosphorus Magnesium Ferritin Direct Bilirubin AST ALT Lactate Dehydrogenase Total Creatine Kinase C-Reactive Protein Total Protein Albumin Triglycerides Arterial Blood Glucose Arterial Blood Ionized Calcium Urine Creatinine Urine Chloride Vancomycin Trough Coronavirus (PCR) Crossmatch 06/25/20 06/25/20 06/25/20 03:48 05:17 12:08 WBC RBC Hgb Hct MCHC RDW Lymph % (Auto) Lymph # (Auto) [place] # (Auto) Seg Neutrophils % Seg Neuts % (Manual) Lymphocytes % (Manual) Nucleated RBC % Seg Neutrophils # Seg Neutrophils # Man Lymphocytes # (Manual) Monocytes # (Manual) PT INR APTT D-Dimer Heparin Anti-Xa Level ABG pH POC ABG pCO2 29.4 L POC ABG pO2 67.1 L ABG pO2 ABG HCO3 ABG Hemoglobin 11.5 L ABG Oxyhemoglobin ABG Sodium 124.1 L ABG Potassium 4.6 H ABG Chloride ABG Glucose 159 H Carboxyhemoglobin Sodium Potassium Chloride Carbon Dioxide BUN Creatinine Glucose POC Glucose 149 H 150 H Lactic Acid Calcium Phosphorus Magnesium Ferritin Direct Bilirubin AST ALT Lactate Dehydrogenase Total Creatine Kinase C-Reactive Protein Total Protein Albumin Triglycerides Arterial Blood Glucose 159 H Arterial Blood Ionized Calcium 4.2 L Urine Creatinine Urine Chloride Vancomycin Trough Coronavirus (PCR) Crossmatch 06/25/20 06/25/20 06/25/20 16:27 16:35 17:27 WBC RBC Hgb Hct MCHC RDW Lymph % (Auto) Lymph # (Auto) [place] # (Auto) Seg Neutrophils % Seg Neuts % (Manual) Lymphocytes % (Manual) Nucleated RBC % Seg Neutrophils # Seg Neutrophils # Man Lymphocytes # (Manual) Monocytes # (Manual) PT INR APTT D-Dimer Heparin Anti-Xa Level < 0.10 L ABG pH POC ABG pCO2 POC ABG pO2 ABG pO2 ABG HCO3 ABG Hemoglobin ABG Oxyhemoglobin ABG Sodium ABG Potassium ABG Chloride ABG Glucose Carboxyhemoglobin Sodium Potassium Chloride Carbon Dioxide BUN Creatinine Glucose POC Glucose 143 H 156 H Lactic Acid Calcium Phosphorus Magnesium Ferritin Direct Bilirubin AST ALT Lactate Dehydrogenase Total Creatine Kinase C-Reactive Protein Total Protein Albumin Triglycerides Arterial Blood Glucose Arterial Blood Ionized Calcium Urine Creatinine Urine Chloride Vancomycin Trough Coronavirus (PCR) Crossmatch 06/25/20 06/25/20 06/25/20 20:00 20:55 23:10 WBC 32.7 H RBC 3.06 L Hgb 9.0 L 9.5 L Hct 26.7 L 28.6 L MCHC RDW Lymph % (Auto) Lymph # (Auto) [place] # (Auto) Seg Neutrophils % Seg Neuts % (Manual) Lymphocytes % (Manual) 2.0 L Nucleated RBC % Seg Neutrophils # Seg Neutrophils # Man 30.7 H Lymphocytes # (Manual) 0.7 L Monocytes # (Manual) 1.3 H PT 17.7 H INR 1.47 H APTT 65.8 H* D-Dimer Heparin Anti-Xa Level ABG pH POC ABG pCO2 POC ABG pO2 ABG pO2 ABG HCO3 ABG Hemoglobin ABG Oxyhemoglobin ABG Sodium ABG Potassium ABG Chloride ABG Glucose Carboxyhemoglobin Sodium Potassium Chloride Carbon Dioxide BUN Creatinine Glucose POC Glucose Lactic Acid Calcium Phosphorus Magnesium Ferritin Direct Bilirubin AST ALT Lactate Dehydrogenase Total Creatine Kinase C-Reactive Protein Total Protein Albumin Triglycerides Arterial Blood Glucose Arterial Blood Ionized Calcium Urine Creatinine Urine Chloride Vancomycin Trough Coronavirus (PCR) Crossmatch 06/25/20 06/26/20 06/26/20 23:14 01:30 03:25 WBC RBC Hgb Hct MCHC RDW Lymph % (Auto) Lymph # (Auto) [place] # (Auto) Seg Neutrophils % Seg Neuts % (Manual) Lymphocytes % (Manual) Nucleated RBC % Seg Neutrophils # Seg Neutrophils # Man Lymphocytes # (Manual) Monocytes # (Manual) PT INR APTT D-Dimer Heparin Anti-Xa Level < 0.10 L ABG pH POC ABG pCO2 POC ABG pO2 ABG pO2 ABG HCO3 ABG Hemoglobin 11.8 L ABG Oxyhemoglobin ABG Sodium 127.1 L ABG Potassium 5.4 H ABG Chloride ABG Glucose 155 H Carboxyhemoglobin 0.3 L Sodium Potassium Chloride Carbon Dioxide BUN Creatinine Glucose POC Glucose 148 H Lactic Acid Calcium Phosphorus Magnesium Ferritin Direct Bilirubin AST ALT Lactate Dehydrogenase Total Creatine Kinase C-Reactive Protein Total Protein Albumin Triglycerides Arterial Blood Glucose 155 H Arterial Blood Ionized Calcium 4.2 L Urine Creatinine Urine Chloride Vancomycin Trough Coronavirus (PCR) Crossmatch 06/26/20 06/26/20 06/26/20 03:59 05:14 05:47 WBC 36.5 H RBC 3.26 L Hgb 9.7 L Hct 28.2 L MCHC RDW Lymph % (Auto) Lymph # (Auto) [place] # (Auto) Seg Neutrophils % Seg Neuts % (Manual) 92.0 H Lymphocytes % (Manual) 4.0 L Nucleated RBC % Seg Neutrophils # Seg Neutrophils # Man 33.6 H Lymphocytes # (Manual) Monocytes # (Manual) PT INR APTT D-Dimer Heparin Anti-Xa Level ABG pH POC ABG pCO2 POC ABG pO2 ABG pO2 ABG HCO3 ABG Hemoglobin ABG Oxyhemoglobin ABG Sodium ABG Potassium ABG Chloride ABG Glucose Carboxyhemoglobin Sodium Potassium 5.9 H Chloride Carbon Dioxide 20 L BUN 144 H Creatinine 6.4 H Glucose 149 H POC Glucose 128 H Lactic Acid Calcium 7.6 L Phosphorus Magnesium Ferritin Direct Bilirubin AST ALT Lactate Dehydrogenase Total Creatine Kinase C-Reactive Protein Total Protein Albumin Triglycerides Arterial Blood Glucose Arterial Blood Ionized Calcium Urine Creatinine Urine Chloride Vancomycin Trough Coronavirus (PCR) Crossmatch 06/26/20 06/26/20 06/26/20 05:47 12:47 17:42 WBC RBC Hgb Hct MCHC RDW Lymph % (Auto) Lymph # (Auto) [place] # (Auto) Seg Neutrophils % Seg Neuts % (Manual) Lymphocytes % (Manual) Nucleated RBC % Seg Neutrophils # Seg Neutrophils # Man Lymphocytes # (Manual) Monocytes # (Manual) PT 17.4 H INR 1.44 H APTT D-Dimer Heparin Anti-Xa Level ABG pH POC ABG pCO2 POC ABG pO2 ABG pO2 ABG HCO3 ABG Hemoglobin ABG Oxyhemoglobin ABG Sodium ABG Potassium ABG Chloride ABG Glucose Carboxyhemoglobin Sodium Potassium Chloride Carbon Dioxide BUN Creatinine Glucose POC Glucose 124 H 127 H Lactic Acid Calcium Phosphorus Magnesium Ferritin Direct Bilirubin AST ALT Lactate Dehydrogenase Total Creatine Kinase C-Reactive Protein Total Protein Albumin Triglycerides Arterial Blood Glucose Arterial Blood Ionized Calcium Urine Creatinine Urine Chloride Vancomycin Trough Coronavirus (PCR) Crossmatch 06/26/20 06/27/20 06/27/20 23:30 03:32 04:00 WBC RBC Hgb 8.7 L Hct 26.4 L MCHC RDW Lymph % (Auto) Lymph # (Auto) [place] # (Auto) Seg Neutrophils % Seg Neuts % (Manual) Lymphocytes % (Manual) Nucleated RBC % Seg Neutrophils # Seg Neutrophils # Man Lymphocytes # (Manual) Monocytes # (Manual) PT INR APTT D-Dimer Heparin Anti-Xa Level ABG pH 7.298 L POC ABG pCO2 POC ABG pO2 ABG pO2 ABG HCO3 ABG Hemoglobin 9.6 L ABG Oxyhemoglobin ABG Sodium 124.4 L ABG Potassium 6.6 H ABG Chloride ABG Glucose 136 H Carboxyhemoglobin Sodium Potassium Chloride Carbon Dioxide BUN Creatinine Glucose POC Glucose 123 H Lactic Acid Calcium Phosphorus Magnesium Ferritin Direct Bilirubin AST ALT Lactate Dehydrogenase Total Creatine Kinase C-Reactive Protein Total Protein Albumin Triglycerides Arterial Blood Glucose 136 H Arterial Blood Ionized Calcium 4.1 L Urine Creatinine Urine Chloride Vancomycin Trough Coronavirus (PCR) Crossmatch 06/27/20 06/27/20 06/27/20 05:26 10:14 11:58 WBC RBC Hgb Hct MCHC RDW Lymph % (Auto) Lymph # (Auto) [place] # (Auto) Seg Neutrophils % Seg Neuts % (Manual) Lymphocytes % (Manual) Nucleated RBC % Seg Neutrophils # Seg Neutrophils # Man Lymphocytes # (Manual) Monocytes # (Manual) PT INR APTT D-Dimer Heparin Anti-Xa Level ABG pH POC ABG pCO2 POC ABG pO2 ABG pO2 ABG HCO3 ABG Hemoglobin ABG Oxyhemoglobin ABG Sodium ABG Potassium ABG Chloride ABG Glucose Carboxyhemoglobin Sodium 136 L Potassium 7.0 H* Chloride 97.8 L Carbon Dioxide BUN 172 H Creatinine 7.4 H Glucose 129 H POC Glucose 124 H 115 H Lactic Acid Calcium 7.6 L Phosphorus Magnesium Ferritin Direct Bilirubin AST ALT Lactate Dehydrogenase Total Creatine Kinase C-Reactive Protein Total Protein Albumin Triglycerides Arterial Blood Glucose Arterial Blood Ionized Calcium Urine Creatinine Urine Chloride Vancomycin Trough Coronavirus (PCR) Crossmatch 06/27/20 06/27/20 06/27/20 17:32 18:30 23:24 WBC RBC Hgb Hct MCHC RDW Lymph % (Auto) Lymph # (Auto) [place] # (Auto) Seg Neutrophils % Seg Neuts % (Manual) Lymphocytes % (Manual) Nucleated RBC % Seg Neutrophils # Seg Neutrophils # Man Lymphocytes # (Manual) Monocytes # (Manual) PT INR APTT D-Dimer Heparin Anti-Xa Level ABG pH POC ABG pCO2 POC ABG pO2 ABG pO2 ABG HCO3 ABG Hemoglobin ABG Oxyhemoglobin ABG Sodium ABG Potassium ABG Chloride ABG Glucose Carboxyhemoglobin Sodium Potassium 7.3 H* Chloride Carbon Dioxide BUN Creatinine Glucose POC Glucose 122 H 116 H Lactic Acid Calcium Phosphorus Magnesium Ferritin Direct Bilirubin AST ALT Lactate Dehydrogenase Total Creatine Kinase C-Reactive Protein Total Protein Albumin Triglycerides Arterial Blood Glucose Arterial Blood Ionized Calcium Urine Creatinine Urine Chloride Vancomycin Trough Coronavirus (PCR) Crossmatch 06/28/20 06/28/20 06/28/20 00:00 02:16 05:37 WBC RBC Hgb Hct MCHC RDW Lymph % (Auto) Lymph # (Auto) [place] # (Auto) Seg Neutrophils % Seg Neuts % (Manual) Lymphocytes % (Manual) Nucleated RBC % Seg Neutrophils # Seg Neutrophils # Man Lymphocytes # (Manual) Monocytes # (Manual) PT INR APTT D-Dimer Heparin Anti-Xa Level ABG pH POC ABG pCO2 POC ABG pO2 79.0 L ABG pO2 ABG HCO3 ABG Hemoglobin 11.7 L ABG Oxyhemoglobin ABG Sodium 128.1 L ABG Potassium 6.6 H ABG Chloride ABG Glucose 124 H Carboxyhemoglobin Sodium Potassium 7.3 H* Chloride Carbon Dioxide BUN Creatinine Glucose POC Glucose 115 H Lactic Acid Calcium Phosphorus Magnesium Ferritin Direct Bilirubin AST ALT Lactate Dehydrogenase Total Creatine Kinase C-Reactive Protein Total Protein Albumin Triglycerides Arterial Blood Glucose 124 H Arterial Blood Ionized Calcium 4.2 L Urine Creatinine Urine Chloride Vancomycin Trough Coronavirus (PCR) Crossmatch 06/28/20 06/28/20 06/28/20 10:03 10:03 11:51 WBC 33.6 H RBC 3.03 L Hgb 8.9 L Hct 27.0 L MCHC RDW Lymph % (Auto) Lymph # (Auto) [place] # (Auto) Seg Neutrophils % Seg Neuts % (Manual) Lymphocytes % (Manual) Nucleated RBC % Seg Neutrophils # Seg Neutrophils # Man Lymphocytes # (Manual) Monocytes # (Manual) PT INR APTT D-Dimer Heparin Anti-Xa Level ABG pH POC ABG pCO2 POC ABG pO2 ABG pO2 ABG HCO3 ABG Hemoglobin ABG Oxyhemoglobin ABG Sodium ABG Potassium ABG Chloride ABG Glucose Carboxyhemoglobin Sodium 136 L Potassium 6.5 H* Chloride Carbon Dioxide 20 L BUN 129 H Creatinine 5.8 H Glucose 113 H POC Glucose 107 H Lactic Acid Calcium 7.6 L Phosphorus Magnesium Ferritin Direct Bilirubin AST ALT Lactate Dehydrogenase Total Creatine Kinase C-Reactive Protein Total Protein Albumin Triglycerides Arterial Blood Glucose Arterial Blood Ionized Calcium Urine Creatinine Urine Chloride Vancomycin Trough Coronavirus (PCR) Crossmatch 06/28/20 06/28/20 06/29/20 17:45 Unknown 03:15 WBC RBC Hgb Hct MCHC RDW Lymph % (Auto) Lymph # (Auto) [place] # (Auto) Seg Neutrophils % Seg Neuts % (Manual) Lymphocytes % (Manual) Nucleated RBC % Seg Neutrophils # Seg Neutrophils # Man Lymphocytes # (Manual) Monocytes # (Manual) PT INR APTT D-Dimer Heparin Anti-Xa Level ABG pH POC ABG pCO2 POC ABG pO2 ABG pO2 ABG HCO3 ABG Hemoglobin 7.8 L ABG Oxyhemoglobin ABG Sodium 127.4 L ABG Potassium 5.5 H ABG Chloride 97.0 L ABG Glucose 96 H Carboxyhemoglobin Sodium Potassium 5.4 H Chloride Carbon Dioxide BUN Creatinine Glucose POC Glucose 117 H Lactic Acid Calcium Phosphorus Magnesium Ferritin Direct Bilirubin AST ALT Lactate Dehydrogenase Total Creatine Kinase C-Reactive Protein Total Protein Albumin Triglycerides Arterial Blood Glucose 96 H Arterial Blood Ionized Calcium 4.0 L Urine Creatinine Urine Chloride Vancomycin Trough Coronavirus (PCR) Crossmatch 06/29/20 06/29/20 06/29/20 03:45 Unknown Unknown WBC RBC Hgb Hct MCHC RDW Lymph % (Auto) Lymph # (Auto) [place] # (Auto) Seg Neutrophils % Seg Neuts % (Manual) Lymphocytes % (Manual) Nucleated RBC % Seg Neutrophils # Seg Neutrophils # Man Lymphocytes # (Manual) Monocytes # (Manual) PT INR APTT D-Dimer Heparin Anti-Xa Level ABG pH POC ABG pCO2 POC ABG pO2 ABG pO2 ABG HCO3 ABG Hemoglobin ABG Oxyhemoglobin ABG Sodium ABG Potassium ABG Chloride ABG Glucose Carboxyhemoglobin Sodium 135 L Potassium 6.0 H 6.1 H* Chloride 94.8 L Carbon Dioxide BUN 109 H 114 H Creatinine 5.5 H Glucose POC Glucose Lactic Acid Calcium 7.4 L Phosphorus Magnesium Ferritin Direct Bilirubin AST 47 H ALT Lactate Dehydrogenase Total Creatine Kinase C-Reactive Protein Total Protein 4.9 L Albumin 2.2 L Triglycerides Arterial Blood Glucose Arterial Blood Ionized Calcium Urine Creatinine Urine Chloride Vancomycin Trough Coronavirus (PCR) Crossmatch 06/29/20 06/29/20 06/30/20 Unknown Unknown 03:32 WBC 20.7 H RBC 2.57 L Hgb 7.6 L Hct 23.0 L MCHC RDW Lymph % (Auto) Lymph # (Auto) [place] # (Auto) Seg Neutrophils % Seg Neuts % (Manual) Lymphocytes % (Manual) Nucleated RBC % Seg Neutrophils # Seg Neutrophils # Man Lymphocytes # (Manual) Monocytes # (Manual) PT INR APTT D-Dimer Heparin Anti-Xa Level ABG pH POC ABG pCO2 POC ABG pO2 ABG pO2 ABG HCO3 ABG Hemoglobin 11.4 L ABG Oxyhemoglobin ABG Sodium 130.1 L ABG Potassium 5.0 H ABG Chloride ABG Glucose Carboxyhemoglobin Sodium Potassium Chloride Carbon Dioxide BUN Creatinine Glucose POC Glucose Lactic Acid Calcium Phosphorus Magnesium Ferritin Direct Bilirubin AST ALT Lactate Dehydrogenase Total Creatine Kinase 618 H C-Reactive Protein Total Protein Albumin Triglycerides Arterial Blood Glucose Arterial Blood Ionized Calcium 3.9 L Urine Creatinine Urine Chloride Vancomycin Trough Coronavirus (PCR) Crossmatch 06/30/20 06/30/20 06/30/20 03:50 03:50 11:39 WBC 13.1 H RBC Hgb Hct MCHC RDW Lymph % (Auto) Lymph # (Auto) [place] # (Auto) Seg Neutrophils % Seg Neuts % (Manual) 95.0 H Lymphocytes % (Manual) 3.0 L Nucleated RBC % Seg Neutrophils # Seg Neutrophils # Man 12.4 H Lymphocytes # (Manual) 0.4 L Monocytes # (Manual) PT INR APTT D-Dimer Heparin Anti-Xa Level ABG pH POC ABG pCO2 POC ABG pO2 ABG pO2 ABG HCO3 ABG Hemoglobin ABG Oxyhemoglobin ABG Sodium ABG Potassium ABG Chloride ABG Glucose Carboxyhemoglobin Sodium 135 L Potassium 5.4 H D Chloride 93.6 L Carbon Dioxide BUN 85 H Creatinine 4.6 H Glucose POC Glucose 111 H Lactic Acid Calcium 7.1 L Phosphorus 9.40 H Magnesium Ferritin Direct Bilirubin AST ALT Lactate Dehydrogenase Total Creatine Kinase C-Reactive Protein Total Protein Albumin Triglycerides Arterial Blood Glucose Arterial Blood Ionized Calcium Urine Creatinine Urine Chloride Vancomycin Trough Coronavirus (PCR) Crossmatch 06/30/20 06/30/20 07/01/20 13:12 Unknown 03:19 WBC RBC Hgb 7.8 L D Hct 23.2 L D MCHC RDW Lymph % (Auto) Lymph # (Auto) [place] # (Auto) Seg Neutrophils % Seg Neuts % (Manual) Lymphocytes % (Manual) Nucleated RBC % Seg Neutrophils # Seg Neutrophils # Man Lymphocytes # (Manual) Monocytes # (Manual) PT INR APTT D-Dimer Heparin Anti-Xa Level ABG pH 7.461 H POC ABG pCO2 POC ABG pO2 77.2 L ABG pO2 ABG HCO3 ABG Hemoglobin 6.9 L ABG Oxyhemoglobin ABG Sodium 128.5 L ABG Potassium ABG Chloride 97.0 L ABG Glucose Carboxyhemoglobin Sodium Potassium Chloride Carbon Dioxide BUN Creatinine Glucose POC Glucose Lactic Acid Calcium Phosphorus Magnesium Ferritin Direct Bilirubin AST ALT Lactate Dehydrogenase Total Creatine Kinase C-Reactive Protein Total Protein Albumin Triglycerides Arterial Blood Glucose Arterial Blood Ionized Calcium 3.7 L Urine Creatinine Urine Chloride Vancomycin Trough Coronavirus (PCR) Positive A Crossmatch 07/01/20 07/01/20 07/01/20 06:00 06:00 11:04 WBC 16.7 H RBC 2.16 L Hgb 6.4 L Hct 19.2 L* MCHC RDW Lymph % (Auto) Lymph # (Auto) [place] # (Auto) Seg Neutrophils % Seg Neuts % (Manual) Lymphocytes % (Manual) Nucleated RBC % Seg Neutrophils # Seg Neutrophils # Man Lymphocytes # (Manual) Monocytes # (Manual) PT INR APTT D-Dimer Heparin Anti-Xa Level ABG pH POC ABG pCO2 POC ABG pO2 ABG pO2 ABG HCO3 ABG Hemoglobin ABG Oxyhemoglobin ABG Sodium ABG Potassium ABG Chloride ABG Glucose Carboxyhemoglobin Sodium 136 L Potassium Chloride 95.8 L Carbon Dioxide BUN 72 H Creatinine 4.3 H Glucose POC Glucose Lactic Acid Calcium 6.7 L Phosphorus Magnesium Ferritin Direct Bilirubin AST ALT Lactate Dehydrogenase Total Creatine Kinase C-Reactive Protein Total Protein Albumin Triglycerides 250 H Arterial Blood Glucose Arterial Blood Ionized Calcium Urine Creatinine Urine Chloride Vancomycin Trough Coronavirus (PCR) Crossmatch See Detail 07/02/20 07/02/20 07/02/20 04:44 06:00 11:33 WBC 14.6 H RBC 2.47 L Hgb 7.4 L Hct 21.8 L MCHC RDW Lymph % (Auto) Lymph # (Auto) [place] # (Auto) Seg Neutrophils % Seg Neuts % (Manual) Lymphocytes % (Manual) Nucleated RBC % Seg Neutrophils # Seg Neutrophils # Man Lymphocytes # (Manual) Monocytes # (Manual) PT INR APTT D-Dimer Heparin Anti-Xa Level ABG pH 7.457 H POC ABG pCO2 POC ABG pO2 79.4 L ABG pO2 ABG HCO3 ABG Hemoglobin 8.5 L ABG Oxyhemoglobin ABG Sodium 128.4 L ABG Potassium ABG Chloride 97.0 L ABG Glucose 100 H Carboxyhemoglobin Sodium 133 L Potassium 5.2 H Chloride 93.3 L Carbon Dioxide BUN 66 H Creatinine 4.1 H Glucose 102 H POC Glucose Lactic Acid Calcium 7.2 L Phosphorus Magnesium Ferritin Direct Bilirubin AST ALT Lactate Dehydrogenase Total Creatine Kinase C-Reactive Protein Total Protein Albumin Triglycerides Arterial Blood Glucose 100 H Arterial Blood Ionized Calcium 3.9 L Urine Creatinine Urine Chloride Vancomycin Trough Coronavirus (PCR) Crossmatch 07/02/20 07/03/20 07/03/20 11:33 03:54 09:15 WBC 16.6 H RBC 2.44 L Hgb 7.3 L Hct 21.4 L MCHC RDW Lymph % (Auto) Lymph # (Auto) [place] # (Auto) Seg Neutrophils % Seg Neuts % (Manual) Lymphocytes % (Manual) Nucleated RBC % Seg Neutrophils # Seg Neutrophils # Man Lymphocytes # (Manual) Monocytes # (Manual) PT INR APTT D-Dimer Heparin Anti-Xa Level ABG pH POC ABG pCO2 POC ABG pO2 66.1 L ABG pO2 ABG HCO3 ABG Hemoglobin 8.0 L ABG Oxyhemoglobin ABG Sodium 124.6 L ABG Potassium 5.5 H ABG Chloride 96.0 L ABG Glucose 111 H Carboxyhemoglobin Sodium Potassium Chloride Carbon Dioxide BUN Creatinine Glucose POC Glucose Lactic Acid Calcium Phosphorus Magnesium Ferritin Direct Bilirubin 0.7 H AST 94 H ALT 60 H Lactate Dehydrogenase Total Creatine Kinase C-Reactive Protein Total Protein 4.4 L Albumin 1.9 L Triglycerides Arterial Blood Glucose 111 H Arterial Blood Ionized Calcium 3.8 L Urine Creatinine Urine Chloride Vancomycin Trough Coronavirus (PCR) Crossmatch 07/03/20 07/03/20 07/03/20 09:15 10:10 14:50 WBC RBC Hgb Hct MCHC RDW Lymph % (Auto) Lymph # (Auto) [place] # (Auto) Seg Neutrophils % Seg Neuts % (Manual) Lymphocytes % (Manual) Nucleated RBC % Seg Neutrophils # Seg Neutrophils # Man Lymphocytes # (Manual) Monocytes # (Manual) PT INR APTT D-Dimer 6608.00 H Heparin Anti-Xa Level ABG pH POC ABG pCO2 POC ABG pO2 ABG pO2 ABG HCO3 ABG Hemoglobin ABG Oxyhemoglobin ABG Sodium ABG Potassium ABG Chloride ABG Glucose Carboxyhemoglobin Sodium 133 L Potassium 6.2 H* Chloride 93.1 L Carbon Dioxide BUN 89 H Creatinine 5.1 H Glucose POC Glucose Lactic Acid Calcium 7.0 L Phosphorus Magnesium Ferritin Direct Bilirubin AST ALT Lactate Dehydrogenase Total Creatine Kinase C-Reactive Protein Total Protein Albumin Triglycerides Arterial Blood Glucose Arterial Blood Ionized Calcium Urine Creatinine Urine Chloride Vancomycin Trough Coronavirus (PCR) Positive A Crossmatch 07/03/20 07/03/20 07/03/20 14:50 14:50 14:50 WBC RBC Hgb Hct MCHC RDW Lymph % (Auto) Lymph # (Auto) [place] # (Auto) Seg Neutrophils % Seg Neuts % (Manual) Lymphocytes % (Manual) Nucleated RBC % Seg Neutrophils # Seg Neutrophils # Man Lymphocytes # (Manual) Monocytes # (Manual) PT INR APTT D-Dimer Heparin Anti-Xa Level ABG pH POC ABG pCO2 POC ABG pO2 ABG pO2 ABG HCO3 ABG Hemoglobin ABG Oxyhemoglobin ABG Sodium ABG Potassium ABG Chloride ABG Glucose Carboxyhemoglobin Sodium Potassium Chloride Carbon Dioxide BUN Creatinine Glucose POC Glucose Lactic Acid < 0.20 L Calcium Phosphorus Magnesium Ferritin 1171.0 H Direct Bilirubin AST ALT Lactate Dehydrogenase 525 H Total Creatine Kinase C-Reactive Protein 31.50 H Total Protein Albumin Triglycerides Arterial Blood Glucose Arterial Blood Ionized Calcium Urine Creatinine Urine Chloride Vancomycin Trough Coronavirus (PCR) Crossmatch 07/03/20 07/04/20 07/04/20 16:47 05:20 05:20 WBC 11.8 H RBC 2.32 L Hgb 6.7 L Hct 20.8 L MCHC RDW Lymph % (Auto) 2.6 L Lymph # (Auto) 0.3 L [place] # (Auto) Seg Neutrophils % Seg Neuts % (Manual) Lymphocytes % (Manual) Nucleated RBC % Seg Neutrophils # 11.0 H Seg Neutrophils # Man Lymphocytes # (Manual) Monocytes # (Manual) PT INR APTT D-Dimer Heparin Anti-Xa Level ABG pH POC ABG pCO2 POC ABG pO2 ABG pO2 ABG HCO3 ABG Hemoglobin ABG Oxyhemoglobin ABG Sodium ABG Potassium ABG Chloride ABG Glucose Carboxyhemoglobin Sodium Potassium 6.0 H Chloride 97.8 L Carbon Dioxide BUN 75 H Creatinine 4.5 H Glucose 121 H POC Glucose 107 H Lactic Acid Calcium 7.9 L Phosphorus Magnesium Ferritin Direct Bilirubin AST ALT Lactate Dehydrogenase Total Creatine Kinase C-Reactive Protein Total Protein Albumin Triglycerides Arterial Blood Glucose Arterial Blood Ionized Calcium Urine Creatinine Urine Chloride Vancomycin Trough Coronavirus (PCR) Crossmatch 07/04/20 07/04/20 07/04/20 05:20 05:50 09:25 WBC RBC Hgb Hct MCHC RDW Lymph % (Auto) Lymph # (Auto) [place] # (Auto) Seg Neutrophils % Seg Neuts % (Manual) Lymphocytes % (Manual) Nucleated RBC % Seg Neutrophils # Seg Neutrophils # Man Lymphocytes # (Manual) Monocytes # (Manual) PT INR APTT D-Dimer Heparin Anti-Xa Level ABG pH 7.324 L POC ABG pCO2 POC ABG pO2 ABG pO2 98.9 H ABG HCO3 26.8 H ABG Hemoglobin < 5.1 L ABG Oxyhemoglobin ABG Sodium ABG Potassium ABG Chloride ABG Glucose Carboxyhemoglobin Sodium Potassium Chloride Carbon Dioxide BUN Creatinine Glucose POC Glucose 114 H Lactic Acid Calcium Phosphorus Magnesium Ferritin Direct Bilirubin AST ALT Lactate Dehydrogenase Total Creatine Kinase C-Reactive Protein Total Protein Albumin Triglycerides Arterial Blood Glucose Arterial Blood Ionized Calcium Urine Creatinine Urine Chloride Vancomycin Trough Coronavirus (PCR) Crossmatch See Detail 07/04/20 07/04/20 07/04/20 12:33 17:41 23:04 WBC RBC Hgb Hct MCHC RDW Lymph % (Auto) Lymph # (Auto) [place] # (Auto) Seg Neutrophils % Seg Neuts % (Manual) Lymphocytes % (Manual) Nucleated RBC % Seg Neutrophils # Seg Neutrophils # Man Lymphocytes # (Manual) Monocytes # (Manual) PT INR APTT D-Dimer Heparin Anti-Xa Level ABG pH POC ABG pCO2 POC ABG pO2 ABG pO2 ABG HCO3 ABG Hemoglobin ABG Oxyhemoglobin ABG Sodium ABG Potassium ABG Chloride ABG Glucose Carboxyhemoglobin Sodium Potassium Chloride Carbon Dioxide BUN Creatinine Glucose POC Glucose 119 H 109 H 116 H Lactic Acid Calcium Phosphorus Magnesium Ferritin Direct Bilirubin AST ALT Lactate Dehydrogenase Total Creatine Kinase C-Reactive Protein Total Protein Albumin Triglycerides Arterial Blood Glucose Arterial Blood Ionized Calcium Urine Creatinine Urine Chloride Vancomycin Trough Coronavirus (PCR) Crossmatch 07/05/20 07/05/20 07/05/20 04:30 08:21 08:21 WBC RBC 2.77 L Hgb 7.9 L Hct 23.9 L MCHC RDW 16.7 H Lymph % (Auto) 7.5 L Lymph # (Auto) 0.7 L [place] # (Auto) Seg Neutrophils % 85.8 H Seg Neuts % (Manual) Lymphocytes % (Manual) Nucleated RBC % Seg Neutrophils # 7.8 H Seg Neutrophils # Man Lymphocytes # (Manual) Monocytes # (Manual) PT INR APTT D-Dimer Heparin Anti-Xa Level ABG pH 7.295 L POC ABG pCO2 POC ABG pO2 ABG pO2 151.9 H ABG HCO3 26.8 H ABG Hemoglobin 7.3 L ABG Oxyhemoglobin ABG Sodium ABG Potassium ABG Chloride ABG Glucose Carboxyhemoglobin Sodium Potassium Chloride Carbon Dioxide BUN Creatinine Glucose POC Glucose Lactic Acid Calcium Phosphorus Magnesium Ferritin Direct Bilirubin AST ALT Lactate Dehydrogenase Total Creatine Kinase C-Reactive Protein Total Protein Albumin Triglycerides 258 H Arterial Blood Glucose Arterial Blood Ionized Calcium Urine Creatinine Urine Chloride Vancomycin Trough Coronavirus (PCR) Crossmatch 07/05/20 07/05/20 07/06/20 08:21 12:12 04:29 WBC RBC Hgb Hct MCHC RDW Lymph % (Auto) Lymph # (Auto) [place] # (Auto) Seg Neutrophils % Seg Neuts % (Manual) Lymphocytes % (Manual) Nucleated RBC % Seg Neutrophils # Seg Neutrophils # Man Lymphocytes # (Manual) Monocytes # (Manual) PT INR APTT D-Dimer Heparin Anti-Xa Level ABG pH 7.291 L POC ABG pCO2 51.3 H POC ABG pO2 ABG pO2 ABG HCO3 ABG Hemoglobin 8.5 L ABG Oxyhemoglobin ABG Sodium 129.6 L ABG Potassium 4.8 H ABG Chloride 96.0 L ABG Glucose Carboxyhemoglobin Sodium 133 L Potassium 5.6 H Chloride 94.4 L Carbon Dioxide BUN 80 H Creatinine 4.2 H Glucose 114 H POC Glucose 106 H Lactic Acid Calcium 7.6 L Phosphorus Magnesium Ferritin Direct Bilirubin 0.5 H AST 75 H ALT 86 H Lactate Dehydrogenase Total Creatine Kinase C-Reactive Protein Total Protein 5.6 L D Albumin 1.9 L Triglycerides Arterial Blood Glucose Arterial Blood Ionized Calcium 4.2 L Urine Creatinine Urine Chloride Vancomycin Trough Coronavirus (PCR) Crossmatch 07/06/20 07/06/20 07/06/20 11:35 11:35 12:16 WBC RBC 2.54 L Hgb 7.5 L Hct 21.5 L MCHC 35 H RDW 15.7 H Lymph % (Auto) Lymph # (Auto) [place] # (Auto) Seg Neutrophils % Seg Neuts % (Manual) Lymphocytes % (Manual) Nucleated RBC % Seg Neutrophils # Seg Neutrophils # Man Lymphocytes # (Manual) Monocytes # (Manual) PT INR APTT D-Dimer Heparin Anti-Xa Level ABG pH POC ABG pCO2 POC ABG pO2 ABG pO2 ABG HCO3 ABG Hemoglobin ABG Oxyhemoglobin ABG Sodium ABG Potassium ABG Chloride ABG Glucose Carboxyhemoglobin Sodium 130 L Potassium Chloride 92.2 L Carbon Dioxide 19 L D BUN 107 H Creatinine 5.1 H Glucose 106 H POC Glucose 106 H Lactic Acid Calcium 7.5 L Phosphorus Magnesium Ferritin Direct Bilirubin AST ALT Lactate Dehydrogenase Total Creatine Kinase C-Reactive Protein Total Protein Albumin Triglycerides Arterial Blood Glucose Arterial Blood Ionized Calcium Urine Creatinine Urine Chloride Vancomycin Trough Coronavirus (PCR) Crossmatch 07/06/20 07/06/20 07/06/20 17:01 21:56 23:41 WBC RBC Hgb Hct MCHC RDW Lymph % (Auto) Lymph # (Auto) [place] # (Auto) Seg Neutrophils % Seg Neuts % (Manual) Lymphocytes % (Manual) Nucleated RBC % Seg Neutrophils # Seg Neutrophils # Man Lymphocytes # (Manual) Monocytes # (Manual) PT INR APTT D-Dimer Heparin Anti-Xa Level ABG pH POC ABG pCO2 POC ABG pO2 ABG pO2 ABG HCO3 ABG Hemoglobin ABG Oxyhemoglobin ABG Sodium ABG Potassium ABG Chloride ABG Glucose Carboxyhemoglobin Sodium 135 L Potassium 5.1 H Chloride Carbon Dioxide BUN 73 H Creatinine 4.0 H Glucose 112 H POC Glucose 109 H 111 H Lactic Acid Calcium 7.8 L Phosphorus Magnesium Ferritin Direct Bilirubin AST ALT Lactate Dehydrogenase Total Creatine Kinase C-Reactive Protein Total Protein Albumin Triglycerides Arterial Blood Glucose Arterial Blood Ionized Calcium Urine Creatinine Urine Chloride Vancomycin Trough Coronavirus (PCR) Crossmatch 07/07/20 07/07/20 07/07/20 04:18 05:04 05:29 WBC RBC 2.46 L Hgb 7.6 L Hct 21.5 L MCHC 35 H RDW 16.5 H Lymph % (Auto) Lymph # (Auto) [place] # (Auto) Seg Neutrophils % Seg Neuts % (Manual) 82.0 H Lymphocytes % (Manual) Nucleated RBC % 1.0 H Seg Neutrophils # Seg Neutrophils # Man Lymphocytes # (Manual) 1.1 L Monocytes # (Manual) PT INR APTT D-Dimer Heparin Anti-Xa Level ABG pH POC ABG pCO2 POC ABG pO2 79.6 L ABG pO2 ABG HCO3 ABG Hemoglobin 8.2 L ABG Oxyhemoglobin ABG Sodium 133.3 L ABG Potassium 4.7 H ABG Chloride ABG Glucose 135 H Carboxyhemoglobin Sodium Potassium Chloride Carbon Dioxide BUN Creatinine Glucose POC Glucose 112 H Lactic Acid Calcium Phosphorus Magnesium Ferritin Direct Bilirubin AST ALT Lactate Dehydrogenase Total Creatine Kinase C-Reactive Protein Total Protein Albumin Triglycerides Arterial Blood Glucose 135 H Arterial Blood Ionized Calcium 4.5 L Urine Creatinine Urine Chloride Vancomycin Trough Coronavirus (PCR) Crossmatch 07/07/20 10:17 WBC RBC Hgb Hct MCHC RDW Lymph % (Auto) Lymph # (Auto) [place] # (Auto) Seg Neutrophils % Seg Neuts % (Manual) Lymphocytes % (Manual) Nucleated RBC % Seg Neutrophils # Seg Neutrophils # Man Lymphocytes # (Manual) Monocytes # (Manual) PT INR APTT D-Dimer Heparin Anti-Xa Level ABG pH POC ABG pCO2 POC ABG pO2 ABG pO2 ABG HCO3 ABG Hemoglobin ABG Oxyhemoglobin ABG Sodium ABG Potassium ABG Chloride ABG Glucose Carboxyhemoglobin Sodium 136 L Potassium Chloride 96.8 L Carbon Dioxide BUN 82 H Creatinine 4.3 H Glucose 129 H POC Glucose Lactic Acid Calcium 7.8 L Phosphorus Magnesium Ferritin Direct Bilirubin AST ALT Lactate Dehydrogenase Total Creatine Kinase C-Reactive Protein Total Protein Albumin Triglycerides Arterial Blood Glucose Arterial Blood Ionized Calcium Urine Creatinine Urine Chloride Vancomycin Trough Coronavirus (PCR) Crossmatch Chest x-ray: pending Allied health notes reviewed: nursing
--- NOTE | 2020-07-07 15:09 | Progress Note ---
Assessment and Plan 59-year-old white male who was admitted for pneumonia secondary to Covid with associated respiratory failure and sepsis. Acute metabolic encephalopathy -Due to severe sepsis and severe hypoxia -CT head showed no acute process, currently intubated, continue supportive care with frequent neuro check Acute hypoxic respiratory failure -Due to severe COVID-19 pneumonia -Intubated following admission overnight as patient was unable to maintain oxygenation with 100% FiO2 with BiPAP -Critical care following, frequent nebulizer breathing treatment, s/p empiric steroid -Patient currently mechanically ventilated and unable to wean off Severe septic shock -Status post 2 pressor support -Still intermittently requiring pressor support, currently off pressor COVID-19 pneumonia -Follow inflammatory markers, ID consulted --Patient initially tested positive for COVID-19 virus about 2 weeks before this admission -CXR shows patchy parenchymal disease which represent pulmonary edema or atypical pneumonia -Placed on dexamethasone for total 10 days and completed remdesivir total 5 days -Continue empiric antibiotics for now per ID recommendation -Droplet/contact isolation -Continue SPO2 monitoring -Supplemental oxygen as needed -Pulmonary hygiene, Prone intermittently to improve oxygenation -Vitamin C, vitamin D, zinc -Anticoagulation per protocol GIRISH, likely ATN -Follow BMP daily, avoid nephrotoxins -Consulted nephrology, follow recommendations -Renal function continues to decline, started on hemodialysis since 06/22/20 Hyperkalemia -Treated aggressively, due to renal failure -s/p Calcium gluconate IV sodium bicarbonate and Kayexalate given -Patient currently on scheduled hemodialysis hypokalemia, repleted Supraventricular tachycardia/paroxysmal atrial fibrillation -likely due to severe sepsis -Status post IV amiodarone drip for rate control -Currently on Cardizem with tube feeding -Consulted cardiology, echo showed preserved EF -Placed on heparin drip but discontinued due to severe anemia requiring transfusion Elevated LFT, due to shock liver from severe sepsis and COVID-19 infection -Continue to trend Anemia likely due to severe sepsis and declining renal function Morbid obesity, -Associated with poor outcome with Covid infection -need counseling for diet and exercise and healthy lifestyles once clinically stable as outpatient DVT prophylaxis, on hold now for anemia The high probability of a clinically significant, sudden or life threatening deterioration of the [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 The aggregate critic al care time was [32] minutes. This time is in addition to time spent performing reported procedures but includes the following: [x] Data Review and interpretation [x] Patient assessment and monitoring of vital signs [x] Documentation [x] Medication orders and management Daily course: 06/18: Patient got intubated overnight. Patient was placed on BiPAP to maintain oxygenation with 100% FiO2 but apparently he found to take off his argueta which made his oxygen saturation go down at 60s/50s and patient was found altered mental status. Code met was called immediately. Patient was transferred to ICU and intubated, patient currently on 2 pressors, intubated with 100% FiO2, renal function noted to be decline, nephrology consulted. Discussed with [facility] physician Dr. Thompson and requested call back on Saturday. Poor prognosis, continue to monitor with aggressive supportive care. Also called family/ to update clinical status. 06/19: Repeat COVID test was positive. cont cefepime, remdesivir per ID recommendation. follow inflammatory markers, cbc, bmp. placed on heparin drip for atrial fib 06/20: Remains on mechanical ventilation, on 2 pressors, on heparin drip. discussed with and daughter by phone. Renal function declining. cont supportive care for now. 06/21: Renal function cont to decline, urine outpt sig decreased. started on lasix 80mg BID, plan to follow urine output, if no improvement patient need to start on HD. called and daughter today. updated all clinical details 06/22: Renal function continues to decline with uremia and hyperkalemia. Will need to proceed with hemodialysis. Nephrology discussed with the family and they agrees for the hemodialysis. Patient remains on pressor support and mechanical ventilation. Vas-Cath placed today by vascular started on hemodialysis today. 06/23: 2nd round of HD today, remains on 2 pressors. per RN not tolerating TF, has no record of BM since 06/18. start on stool softner. follow cbc/bmp. updated family( and daughter) by phone -all question answered to best of my knowledge and to their satisfaction. Patient remains critically ill with a very poor prognosis. 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 06/25/2020 continue supportive care very poor prognosis 06/26/2020 continue supportive care very poor prognosis family updated 06/27/2020 continue supportive care and weaning if possible 06/28/2020 continue supportive care, talk with at length 06/29: Resumed care. K level persistently high. give one dose of bicarbonate, plan for HD today, recheck k after HD. updated family by phone 06/30: updated family by phone. Patient remains on amiodarone drip and vasopressin. Getting HD at the bedside. Tolerating tube feeding at low rate. 07/01: Hb dropped to 6.4 today, transfuse one unit PRBC. patient is off pressor today, remains on amioderone. cont to monitor 07/02: Called patient and updated clinical details. Patient remains critically ill, still intubated. Patient's oxygen requirement and PEEP pressure has went down. Continue weaning protocol per critical care recommendation. Patient remains off pressor. Continue to wean off from amiodarone and plan to rate control with p.o. medications. Tolerating tube feeding. H&H stable today. Order for stool for occult blood. Monitor H&H and BMP. Continue to follow clinically 07/03: discussed with [facility] physician today. Patient back on 100percent Fio2 since last night. planned for emergent Hd today. spiked fever, start IV Cefepime + Vancomycin renally dosed. Restarted Levophed today, remains on amiodarone drip. Patient family was updated by critical care attending today. 07/04: Patient has hemodialysis yesterday and also plan for today for volume overload and pulmonary edema. Patient currently on 80% FiO2. Remains on Levophed and amiodarone. Hemoglobin dropped to 6.7 without any evidence of active bleeding. LFTs remain stable. Repeat Covid test on 06/30 and 07/03 remains positive. Will transfuse another unit of packed RBC today. Called family for update -explained family that patient is critically ill with very poor prognosis. 07/05: Patient on 70% FiO2 with PEEP of 14. h/h stable after transfusion. hyperkalemia improved, cont sodiumbicarbonate pill with TF. follow BMP. off levophed today, remains on amioderone. poor prognosis. 07/06: Patient remains on amiodarone drip, maintaining BP without any pressor. FiO2 requirement trended down to 60% with PEEP of 14. Continue to follow clinically. Plan to wean off amiodarone drip as tolerated. Wean off from sedation as tolerated. Updated family. Patient remains critically ill with poor prognosis. 07/07: Called family for update. Off amiodarone drip today, patient also off pressor. FiO2 requirement trended up again to 80-100%. Continue to provide supportive care, monitor clinically. Having difficulty to wean off from the vent support. Patient is persistently positive for COVID-19 and COVID-19 antibody is nonreactive. Patient remains critically ill with very poor prognosis. Subjective Date of service: 07/07/20 Principal diagnosis: ARF/Septic Shock/COVID-19 PNA, AF with RVR Interval history: Patient seen and examined Off amiodarone today, mechanically ventilated and sedated Noted vitals, lab results reviewed Discussed with RN at the bedside and critical care attending Called family for update Objective - Exam Narrative Exam: Limited physical exam due to COVID-19 pandemic to minimize transmission of the disease and to preserve PPE. Vital reviewed and stable. GENERAL: Well-developed obese white male lying on bed who is mechanically ventilated and sedated. HEENT: Normocephalic. Atraumatic. NECK: Supple. CHEST/LUNGS: On mechanical ventilation HEART/CARDIOVASCULAR: Tachycardic ABDOMEN: Visibly not distended SKIN: There is no rash NEURO: Patient is intubated MUSCULOSKELETAL: No joint effusion EXTRIMITY: no cyanosis or clubbing. PSYCH: Unable to assess. - Constitutional Vitals: Vital Signs - 12hr 07/07/20 07/07/20 07/07/20 03:15 03:30 03:46 Temperature Pulse Rate 120 H 108 H 108 H Pulse Rate [ From Monitor] Pulse Rate [ Right Dorsalis Pedis] Respiratory 21 29 H 24 Rate Blood Pressure 144/62 144/62 152/79 O2 Sat by Pulse 97 96 94 Oximetry 07/07/20 07/07/20 07/07/20 03:47 03:48 04:00 Temperature 97.7 F Pulse Rate 96 H Pulse Rate [ From Monitor] Pulse Rate [ 98 H Right Dorsalis Pedis] Respiratory 16 20 Rate Blood Pressure 148/80 O2 Sat by Pulse 94 Oximetry 07/07/20 07/07/20 07/07/20 04:16 04:30 04:46 Temperature Pulse Rate 110 H 98 H 96 H Pulse Rate [ From Monitor] Pulse Rate [ Right Dorsalis Pedis] Respiratory 26 H 26 H 26 H Rate Blood Pressure 157/73 132/57 131/54 O2 Sat by Pulse 94 95 95 Oximetry 07/07/20 07/07/20 07/07/20 04:47 05:00 05:16 Temperature Pulse Rate 103 H 98 H 99 H Pulse Rate [ From Monitor] Pulse Rate [ Right Dorsalis Pedis] Respiratory 22 23 Rate Blood Pressure 131/54 131/54 115/59 O2 Sat by Pulse 96 94 96 Oximetry 07/07/20 07/07/20 07/07/20 05:30 05:32 05:45 Temperature Pulse Rate 96 H 105 H 105 H Pulse Rate [ From Monitor] Pulse Rate [ Right Dorsalis Pedis] Respiratory 22 22 Rate Blood Pressure 116/57 116/57 131/59 O2 Sat by Pulse 95 96 Oximetry 07/07/20 07/07/20 07/07/20 06:00 06:15 06:30 Temperature Pulse Rate 91 H 93 H 107 H Pulse Rate [ From Monitor] Pulse Rate [ Right Dorsalis Pedis] Respiratory 22 23 26 H Rate Blood Pressure 125/56 119/57 111/60 O2 Sat by Pulse 96 96 95 Oximetry 07/07/20 07/07/20 07/07/20 06:45 07:00 07:15 Temperature Pulse Rate 106 H 107 H 90 Pulse Rate [ From Monitor] Pulse Rate [ Right Dorsalis Pedis] Respiratory 22 20 23 Rate Blood Pressure 116/46 98/51 107/44 O2 Sat by Pulse 96 95 96 Oximetry 07/07/20 07/07/20 07/07/20 07:30 07:45 08:00 Temperature 98.8 F Pulse Rate 89 91 H 102 H Pulse Rate [ 90 From Monitor] Pulse Rate [ Right Dorsalis Pedis] Respiratory 22 28 H 21 Rate Blood Pressure 114/55 104/65 111/55 O2 Sat by Pulse 95 95 94 Oximetry 07/07/20 07/07/20 07/07/20 08:15 08:24 08:30 Temperature Pulse Rate 96 H 107 H 105 H Pulse Rate [ From Monitor] Pulse Rate [ Right Dorsalis Pedis] Respiratory 24 24 Rate Blood Pressure 128/59 128/59 134/52 O2 Sat by Pulse 94 94 94 Oximetry 07/07/20 07/07/20 07/07/20 08:45 09:00 09:15 Temperature Pulse Rate 100 H 84 106 H Pulse Rate [ From Monitor] Pulse Rate [ Right Dorsalis Pedis] Respiratory 26 H 25 H 20 Rate Blood Pressure 133/59 124/50 112/52 O2 Sat by Pulse 94 95 95 Oximetry 07/07/20 07/07/20 07/07/20 09:30 09:45 10:00 Temperature Pulse Rate 97 H 100 H 98 H Pulse Rate [ From Monitor] Pulse Rate [ Right Dorsalis Pedis] Respiratory 18 21 29 H Rate Blood Pressure 112/53 120/56 132/71 O2 Sat by Pulse 95 96 94 Oximetry 07/07/20 07/07/20 07/07/20 10:15 10:30 10:46 Temperature Pulse Rate 99 H 96 H 103 H Pulse Rate [ From Monitor] Pulse Rate [ Right Dorsalis Pedis] Respiratory 22 28 H 25 H Rate Blood Pressure 117/69 132/75 150/66 O2 Sat by Pulse 94 93 92 Oximetry 07/07/20 07/07/20 07/07/20 11:00 11:15 11:30 Temperature Pulse Rate 106 H 93 H 90 Pulse Rate [ From Monitor] Pulse Rate [ Right Dorsalis Pedis] Respiratory 26 H 23 20 Rate Blood Pressure 138/64 128/60 120/60 O2 Sat by Pulse 93 95 95 Oximetry 07/07/20 07/07/20 07/07/20 11:45 12:00 12:15 Temperature 98.7 F Pulse Rate 95 H 93 H 98 H Pulse Rate [ 93 H From Monitor] Pulse Rate [ Right Dorsalis Pedis] Respiratory 21 18 20 Rate Blood Pressure 121/61 131/61 138/58 O2 Sat by Pulse 96 96 96 Oximetry 07/07/20 07/07/20 07/07/20 12:30 12:45 13:00 Temperature Pulse Rate 99 H 96 H 90 Pulse Rate [ From Monitor] Pulse Rate [ Right Dorsalis Pedis] Respiratory 20 18 19 Rate Blood Pressure 125/63 115/64 120/61 O2 Sat by Pulse 96 97 97 Oximetry 07/07/20 07/07/20 07/07/20 13:02 13:16 13:30 Temperature Pulse Rate 93 H 87 94 H Pulse Rate [ From Monitor] Pulse Rate [ Right Dorsalis Pedis] Respiratory 18 22 Rate Blood Pressure 120/1 134/65 134/65 O2 Sat by Pulse 95 95 Oximetry 07/07/20 07/07/20 13:45 13:52 Temperature Pulse Rate 101 H 92 H Pulse Rate [ From Monitor] Pulse Rate [ Right Dorsalis Pedis] Respiratory 24 Rate Blood Pressure 158/63 158/63 O2 Sat by Pulse 93 92 Oximetry - Labs CBC & Chem 7: 07/08/20 04:00 07/08/20 04:00 Labs: Abnormal lab results 07/06/20 07/06/20 07/06/20 Range/Units 12:16 17:01 21:56 RBC (3.65-5.03) M/mm3 Hgb (11.8-15.2) gm/dl Hct (35.5-45.6) % MCHC (32-34) % RDW (13.2-15.2) % Seg Neuts % (Manual) (40.0-70.0) % Nucleated RBC % (0.0-0.9) % Lymphocytes # (Manual) (1.2-5.4) K/mm3 POC ABG pO2 (83-108) mmHg ABG Hemoglobin (12.0-17.5) ABG Sodium (136.0-145.0) mmol/L ABG Potassium (3.40-4.50) mmol/L ABG Glucose (65-95) mg/dL Sodium 135 L (137-145) mmol/L Potassium 5.1 H (3.6-5.0) mmol/L Chloride (98-107) mmol/L BUN 73 H (9-20) mg/dL Creatinine 4.0 H (0.8-1.3) mg/dL Glucose 112 H (75-100) mg/dL POC Glucose 106 H 109 H (70-105) mg/dL Calcium 7.8 L (8.4-10.2) mg/dL Arterial Blood Glucose (65-95) mg/dL Arterial Blood Ionized Calcium (4.6-5.3) mg/dL 07/06/20 07/07/20 07/07/20 Range/Units 23:41 04:18 05:04 RBC 2.46 L (3.65-5.03) M/mm3 Hgb 7.6 L (11.8-15.2) gm/dl Hct 21.5 L (35.5-45.6) % MCHC 35 H (32-34) % RDW 16.5 H (13.2-15.2) % Seg Neuts % (Manual) 82.0 H (40.0-70.0) % Nucleated RBC % 1.0 H (0.0-0.9) % Lymphocytes # (Manual) 1.1 L (1.2-5.4) K/mm3 POC ABG pO2 79.6 L (83-108) mmHg ABG Hemoglobin 8.2 L (12.0-17.5) ABG Sodium 133.3 L (136.0-145.0) mmol/L ABG Potassium 4.7 H (3.40-4.50) mmol/L ABG Glucose 135 H (65-95) mg/dL Sodium (137-145) mmol/L Potassium (3.6-5.0) mmol/L Chloride (98-107) mmol/L BUN (9-20) mg/dL Creatinine (0.8-1.3) mg/dL Glucose (75-100) mg/dL POC Glucose 111 H (70-105) mg/dL Calcium (8.4-10.2) mg/dL Arterial Blood Glucose 135 H (65-95) mg/dL Arterial Blood Ionized Calcium 4.5 L (4.6-5.3) mg/dL 07/07/20 07/07/20 Range/Units 05:29 10:17 RBC (3.65-5.03) M/mm3 Hgb (11.8-15.2) gm/dl Hct (35.5-45.6) % MCHC (32-34) % RDW (13.2-15.2) % Seg Neuts % (Manual) (40.0-70.0) % Nucleated RBC % (0.0-0.9) % Lymphocytes # (Manual) (1.2-5.4) K/mm3 POC ABG pO2 (83-108) mmHg ABG Hemoglobin (12.0-17.5) ABG Sodium (136.0-145.0) mmol/L ABG Potassium (3.40-4.50) mmol/L ABG Glucose (65-95) mg/dL Sodium 136 L (137-145) mmol/L Potassium (3.6-5.0) mmol/L Chloride 96.8 L (98-107) mmol/L BUN 82 H (9-20) mg/dL Creatinine 4.3 H (0.8-1.3) mg/dL Glucose 129 H (75-100) mg/dL POC Glucose 112 H (70-105) mg/dL Calcium 7.8 L (8.4-10.2) mg/dL Arterial Blood Glucose (65-95) mg/dL Arterial Blood Ionized Calcium (4.6-5.3) mg/dL HEART Score - HEART Score Troponin: Troponin T < 0.010 ng/mL (0.00-0.029) 06/17/20 12:33
--- NOTE | 2020-07-07 16:53 | Progress Note ---
Assessment and Plan - Patient Problems (1) GIRISH (acute kidney injury) Current Visit: Yes Status: Acute Plan to address problem: Acute kidney failure 2/2 prerenal azotemia versus acute tubular necrosis, patient without significant renal recovery, remains dialysis dependent. 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 Patient is on intermittent vasopressors to [place] in MAP > 65mmHg . (3) Hyperkalemia Current Visit: Yes Status: Acute Plan to address problem: corrected with HD (4) Metabolic acidosis Current Visit: Yes Status: Acute Plan to address problem: Acidosis corrected with dialysis. (5) Acute respiratory failure with hypoxia Current Visit: Yes Status: Acute Plan to address problem: Continue respiratory management by pulmonary (6) Pneumonia due to COVID-19 virus Current Visit: Yes Status: Acute Plan to address problem: IV Dexamethasone Supplemental oxygen/Respiratory support as needed Proning as tolerated Remdesevir contra-indicated due to Kidney failure Prophylactic anticoagulation Trend inflammatory markers to assess disease progression and prognosis Subjective Date of service: 07/07/20 Principal diagnosis: ARF/Septic Shock/COVID-19 PNA, AF with RVR Interval history: Patient was not examined today due to the COVID-19 status to 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 I reviewed multidisciplinary notes and discussed with staff and physicians as needed. Patient is sedated on propofol and fentanyl. He is on anticoagulation with intravenous heparin. HD well tolerated yesterday with 1L UF. pt remains off vasopressors, on ventilator support with FiO2 60% Objective - Exam Narrative Exam: exam deferred d/t PPE preservation - Vital Signs Vital signs: Vital Signs - 12hr 07/07/20 07/07/20 07/07/20 05:00 05:16 05:30 Temperature Pulse Rate 98 H 99 H 96 H Pulse Rate [ From Monitor] Respiratory 22 23 22 Rate Blood Pressure 131/54 115/59 116/57 O2 Sat by Pulse 94 96 95 Oximetry 07/07/20 07/07/20 07/07/20 05:32 05:45 06:00 Temperature Pulse Rate 105 H 105 H 91 H Pulse Rate [ From Monitor] Respiratory 22 22 Rate Blood Pressure 116/57 131/59 125/56 O2 Sat by Pulse 96 96 Oximetry 07/07/20 07/07/20 07/07/20 06:15 06:30 06:45 Temperature Pulse Rate 93 H 107 H 106 H Pulse Rate [ From Monitor] Respiratory 23 26 H 22 Rate Blood Pressure 119/57 111/60 116/46 O2 Sat by Pulse 96 95 96 Oximetry 07/07/20 07/07/20 07/07/20 07:00 07:15 07:30 Temperature Pulse Rate 107 H 90 89 Pulse Rate [ From Monitor] Respiratory 20 23 22 Rate Blood Pressure 98/51 107/44 114/55 O2 Sat by Pulse 95 96 95 Oximetry 07/07/20 07/07/20 07/07/20 07:45 08:00 08:15 Temperature 98.8 F Pulse Rate 91 H 102 H 96 H Pulse Rate [ 90 From Monitor] Respiratory 28 H 21 24 Rate Blood Pressure 104/65 111/55 128/59 O2 Sat by Pulse 95 94 94 Oximetry 07/07/20 07/07/20 07/07/20 08:24 08:30 08:45 Temperature Pulse Rate 107 H 105 H 100 H Pulse Rate [ From Monitor] Respiratory 24 26 H Rate Blood Pressure 128/59 134/52 133/59 O2 Sat by Pulse 94 94 94 Oximetry 07/07/20 07/07/20 07/07/20 09:00 09:15 09:30 Temperature Pulse Rate 84 106 H 97 H Pulse Rate [ From Monitor] Respiratory 25 H 20 18 Rate Blood Pressure 124/50 112/52 112/53 O2 Sat by Pulse 95 95 95 Oximetry 07/07/20 07/07/20 07/07/20 09:45 10:00 10:15 Temperature Pulse Rate 100 H 98 H 99 H Pulse Rate [ From Monitor] Respiratory 21 29 H 22 Rate Blood Pressure 120/56 132/71 117/69 O2 Sat by Pulse 96 94 94 Oximetry 07/07/20 07/07/20 07/07/20 10:30 10:46 11:00 Temperature Pulse Rate 96 H 103 H 106 H Pulse Rate [ From Monitor] Respiratory 28 H 25 H 26 H Rate Blood Pressure 132/75 150/66 138/64 O2 Sat by Pulse 93 92 93 Oximetry 07/07/20 07/07/20 07/07/20 11:15 11:30 11:45 Temperature Pulse Rate 93 H 90 95 H Pulse Rate [ From Monitor] Respiratory 23 20 21 Rate Blood Pressure 128/60 120/60 121/61 O2 Sat by Pulse 95 95 96 Oximetry 07/07/20 07/07/20 07/07/20 12:00 12:15 12:30 Temperature 98.7 F Pulse Rate 93 H 98 H 99 H Pulse Rate [ 93 H From Monitor] Respiratory 18 20 20 Rate Blood Pressure 131/61 138/58 125/63 O2 Sat by Pulse 96 96 96 Oximetry 07/07/20 07/07/20 07/07/20 12:45 13:00 13:02 Temperature Pulse Rate 96 H 90 93 H Pulse Rate [ From Monitor] Respiratory 18 19 Rate Blood Pressure 115/64 120/61 120/1 O2 Sat by Pulse 97 97 Oximetry 07/07/20 07/07/20 07/07/20 13:16 13:30 13:45 Temperature Pulse Rate 87 94 H 101 H Pulse Rate [ From Monitor] Respiratory 18 22 24 Rate Blood Pressure 134/65 134/65 158/63 O2 Sat by Pulse 95 95 93 Oximetry 07/07/20 07/07/20 07/07/20 13:52 14:00 14:16 Temperature Pulse Rate 92 H Pulse Rate [ From Monitor] Respiratory Rate Blood Pressure 158/63 161/57 161/57 O2 Sat by Pulse 92 90 93 Oximetry 07/07/20 07/07/20 07/07/20 14:30 14:46 15:00 Temperature Pulse Rate 95 H 104 H 94 H Pulse Rate [ From Monitor] Respiratory 33 H 29 H 24 Rate Blood Pressure 174/63 143/63 142/62 O2 Sat by Pulse 92 93 95 Oximetry 07/07/20 07/07/20 15:16 15:30 Temperature Pulse Rate 91 H 95 H Pulse Rate [ From Monitor] Respiratory 22 20 Rate Blood Pressure 132/58 122/57 O2 Sat by Pulse 96 98 Oximetry - Lab 07/07/20 05:04 07/07/20 10:17 Most recent lab results ABG pH 7.368 (7.320-7.450) 07/07/20 04:18 ABG pCO2 56.4 mm Hg 07/05/20 04:30 ABG pO2 151.9 mm Hg (80.0-90.0) H 07/05/20 04:30 ABG HCO3 26.8 mmol/L (20.0-26.0) H 07/05/20 04:30 ABG O2 Saturation 98.7 % (95.0-99.0) 07/05/20 04:30 Calcium 7.8 mg/dL (8.4-10.2) L 07/07/20 10:17 Phosphorus 9.40 mg/dL (2.5-4.5) H 06/30/20 03:50 Magnesium 2.70 mg/dL (1.7-2.3) H 06/18/20 20:33 Urine Creatinine 192.4 mg/dL (0.1-20.0) H 06/18/20 15:00 Urine Sodium 28 mmol/L 06/18/20 15:00 Medications & Allergies - Medications Allergies/Adverse Reactions: Allergies No Known Allergies Allergy (Unverified 06/17/20 14:24) Home Medications: Home Medications Medication Instructions Recorded Confirmed Last Taken Type Losartan/Hydrochlorothiazide 1 each PO QDAY 06/19/20 06/19/20 Unknown History [Losartan-Hctz 100-25 mg Tab] amLODIPine [Norvasc] 5 mg PO DAILY 06/19/20 06/19/20 Unknown History Active Medications: Generic Name Dose Route Start Last Admin Trade Name Freq PRN Reason Stop Dose Admin Acetaminophen 650 mg 06/17/20 14:17 07/03/20 09:16 Acetaminophen 325 Mg Tab PO 650 mg Q4H PRN Administration Pain MILD(1-3)/Fever >100.5/ROBERTS Lipase/Protease/Amylase 1 each 06/19/20 12:15 Lipase 10,500/Protease 25,000/Amylase 43,750 (Units) Dr Kulkarni FEEDTUBE PRN PRN For Clogged Feeding Tube Ascorbic Acid 250 mg 06/17/20 22:00 07/07/20 09:37 Ascorbic Acid 250 Mg Tab PO 250 mg BID CONNOR Administration Cholecalciferol 1,000 unit 06/18/20 10:00 07/07/20 09:37 Cholecalciferol (Vit D3) 1000 Unit (25 Mcg) Tab PO 1,000 unit DAILY CONNOR Administration Dexamethasone 6 mg 07/03/20 14:00 07/07/20 09:37 Dexamethasone 4 Mg/Ml Vial IV 07/13/20 13:59 6 mg DAILY CONNOR Administration Diltiazem HCl 60 mg 07/07/20 12:00 07/07/20 13:02 Diltiazem 60 Mg Tab PO 60 mg Q6HR CONNOR Administration Docusate Sodium 100 mg 06/23/20 15:00 07/07/20 09:35 Docusate Sodium 100 Mg/10 Ml Oral Liqd FEEDTUBE Not Given BID CONNOR Famotidine 20 mg 06/20/20 11:00 07/07/20 09:37 Famotidine 20 Mg/2 Ml Inj IV 20 mg DAILY CONNOR Administration Fentanyl 50 mcg 06/18/20 01:02 06/28/20 04:32 Fentanyl 100 Mcg/2 Ml Inj IV 50 mcg Q10MIN PRN Administration ANALGESIA Heparin Sodium (Porcine) 5,000 unit 06/22/20 12:53 06/30/20 13:36 Heparin 10,000 Unit/1 Ml Vial IV 5,000 unit PAM PRN Administration hemodialysis Heparin Sodium (Porcine) 5,000 unit 07/03/20 22:00 07/07/20 13:02 Heparin 5,000 Unit/1 Ml Vial SUB-Q 5,000 unit Q8HR CONNOR Administration Hydrophilic Ointment 1 applic 06/17/20 22:52 07/02/20 20:45 Lip Therapy Vaseline TP 1 applic Q2HR PRN Administration Dry Lips Norepinephrine 4 mg in 250 mls @ 7.5 mls/hr 06/18/20 00:00 07/07/20 03:58 Levophed Drip 4 Mg/Ns 250 Ml IV 0 mcg/min TITR CONNOR 0 mls/hr Titration Protocol 2 MCG/MIN Propofol 1,000 mg in 100 mls @ 3.402 mls/hr 06/18/20 01:00 07/07/20 14:55 Diprivan 10 Mg/Ml IV 15 mcg/kg/min TITR CONNOR 10.206 mls/hr Administration Protocol 5 MCG/KG/MIN Fentanyl Citrate 2,000 mcg in 100 mls @ 5.67 mls/hr 06/18/20 02:00 07/07/20 16:12 Fentanyl Drip Premix IV 3 mcg/kg/hr TITR CONNOR 17.01 mls/hr Administration Protocol 1 MCG/KG/HR Sodium Chloride 500 mls @ 1 mls/hr 06/18/20 09:38 06/19/20 21:37 Nacl 0.9% 500 Ml IV 0 mls/hr DIRECT PRN Infusion ARTERIAL LINE FLUSH Sodium Chloride 100 mls @ 999 mls/hr 07/03/20 11:11 Nacl 0.9% IV PAM PRN Hypotension Insulin Human Regular 0 units 06/18/20 12:00 07/07/20 13:03 Insulin Regular, Human 100 Units/1 Ml SUB-Q Not Given Q6HR [facility] Protocol Metoclopramide HCl 5 mg 07/07/20 09:00 07/07/20 09:35 Metoclopramide 10 Mg/2 Ml Inj IV 07/08/20 08:59 5 mg Q8H CONNOR Administration Multi-Ingred Cream/Lotion/Oil/Oint 1 applic 06/17/20 22:52 Mineral Oil/Petrolatum, White Ophth Oint 3.5 Gm OU Q4HR PRN Dry Eye(s) Ondansetron HCl 4 mg 06/17/20 14:17 Ondansetron 4 Mg/2 Ml Inj IV Q8H PRN Nausea And Vomiting Polyethylene Glycol 17 gm 06/23/20 15:00 07/07/20 09:36 Polyethylene Glycol 3350 17 Gm Powder PO Not Given QDAY [facility] Quetiapine Fumarate 200 mg 06/28/20 13:00 07/07/20 09:37 Quetiapine 200 Mg Tab PO 200 mg BID CONNOR Administration Simple Syrup 15 ml 06/19/20 12:15 Simple Syrup 15 Ml FEEDTUBE PRN PRN Hypoglycemia Simple Syrup 30 ml 06/19/20 12:15 Simple Syrup 15 Ml FEEDTUBE PRN PRN Hypoglycemia Sodium Bicarbonate 325 mg 06/19/20 12:15 Sodium Bicarbonate 325 Mg Tab FEEDTUBE PRN PRN For Clogged Feeding Tube Sodium Bicarbonate 650 mg 07/04/20 10:00 07/07/20 13:02 Sodium Bicarbonate 650 Mg Tab PO 650 mg TID CONNOR Administration Sodium Chloride 10 ml 06/17/20 22:00 07/07/20 09:38 Sodium Chloride 0.9% 10 Ml Flush Syringe IV 10 ml BID CONNOR Administration Sodium Chloride 10 ml 06/17/20 14:17 Sodium Chloride 0.9% 10 Ml Flush Syringe IV PRN PRN LINE FLUSH Sodium Polystyrene Sulfonate 15 gm 07/03/20 11:19 07/05/20 10:36 Sodium Polystyrene 15 Gm/60 Ml Oral Liqd PO 15 gm Q6HR PRN Administration Hyperkalemia Zinc Sulfate 220 mg 06/17/20 22:00 07/07/20 09:37 Zinc Sulfate 220 Mg Cap PO 220 mg BID CONNOR Administration
--- NOTE | 2020-07-07 19:20 | Progress Note ---
Assessment and Plan Cultures: SARS CoV2 PCR: Positive as outpatient Blood culture: no growth Sputum culture: no growth A/P: 59-year-old male with obesity, obesity hypoventilation syndrome: #Severe sepsis with septic shock: likely secondary to critical COVID-19 pneumonia. Blood cultures so far negative. ?Bacterial pneumonia component, but sputum culture with no growth. On empiric abx, steroids. Completed Remdesivir. #Critical COVID-19 pneumonia: Procalcitonin also high on admission (Now with worsening GIRISH, no longer reliable), completed empiric antibiotic course. #Acute hypoxic respiratory failure: on the vent #Transaminitis: Likely secondary to COVID-19. #GIRISH: On HD MWF, started 06/22/2020 Recs: -completed steroids, remdesivir, cefepime -if febrile again, would reculture ET aspirate, blood and start IV Cefepime + Vancomycin renally dosed -prophylactic anticoagulation based on d-dimer per hospital protocol -poor prognosis Infectious disease will sign off for now. Please do not hesitate to call with any questions or new concerns. Юлия Finney MD [facility] ([facility]) O: [phone] F: [phone] Subjective Date of service: 07/07/20 Principal diagnosis: ARF/Septic Shock/COVID-19 PNA, AF with RVR Interval history: Afebrile, normal white count. Imaging personally viewed: Chest x-ray: Stable chest Objective - Exam Narrative Exam: Physical exam deferred due to PPE conservation strategy. Please refer to primary team's note. - Constitutional Vitals: Vital Signs Temp Pulse Resp BP Pulse Ox 98.1 F 98 H 19 116/53 97 07/07/20 16:00 07/07/20 19:00 07/07/20 19:00 07/07/20 19:00 07/07/20 19:00 Temperature -Last 24 Hours Temperature 98.1 F Temperature 98.7 F Temperature 98.8 F Temperature 97.7 F Temperature 98.1 F Temperature 99.0 F Temperature 99.0 F - Labs CBC & Chem 7: 07/07/20 05:04 07/07/20 10:17 Labs: Abnormal lab results 07/06/20 07/06/20 07/07/20 Range/Units 21:56 23:41 04:18 RBC (3.65-5.03) M/mm3 Hgb (11.8-15.2) gm/dl Hct (35.5-45.6) % MCHC (32-34) % RDW (13.2-15.2) % Seg Neuts % (Manual) (40.0-70.0) % Nucleated RBC % (0.0-0.9) % Lymphocytes # (Manual) (1.2-5.4) K/mm3 POC ABG pO2 79.6 L (83-108) mmHg ABG Hemoglobin 8.2 L (12.0-17.5) ABG Sodium 133.3 L (136.0-145.0) mmol/L ABG Potassium 4.7 H (3.40-4.50) mmol/L ABG Glucose 135 H (65-95) mg/dL Sodium 135 L (137-145) mmol/L Potassium 5.1 H (3.6-5.0) mmol/L Chloride (98-107) mmol/L BUN 73 H (9-20) mg/dL Creatinine 4.0 H (0.8-1.3) mg/dL Glucose 112 H (75-100) mg/dL POC Glucose 111 H (70-105) mg/dL Calcium 7.8 L (8.4-10.2) mg/dL Arterial Blood Glucose 135 H (65-95) mg/dL Arterial Blood Ionized Calcium 4.5 L (4.6-5.3) mg/dL 07/07/20 07/07/20 07/07/20 Range/Units 05:04 05:29 10:17 RBC 2.46 L (3.65-5.03) M/mm3 Hgb 7.6 L (11.8-15.2) gm/dl Hct 21.5 L (35.5-45.6) % MCHC 35 H (32-34) % RDW 16.5 H (13.2-15.2) % Seg Neuts % (Manual) 82.0 H (40.0-70.0) % Nucleated RBC % 1.0 H (0.0-0.9) % Lymphocytes # (Manual) 1.1 L (1.2-5.4) K/mm3 POC ABG pO2 (83-108) mmHg ABG Hemoglobin (12.0-17.5) ABG Sodium (136.0-145.0) mmol/L ABG Potassium (3.40-4.50) mmol/L ABG Glucose (65-95) mg/dL Sodium 136 L (137-145) mmol/L Potassium (3.6-5.0) mmol/L Chloride 96.8 L (98-107) mmol/L BUN 82 H (9-20) mg/dL Creatinine 4.3 H (0.8-1.3) mg/dL Glucose 129 H (75-100) mg/dL POC Glucose 112 H (70-105) mg/dL Calcium 7.8 L (8.4-10.2) mg/dL Arterial Blood Glucose (65-95) mg/dL Arterial Blood Ionized Calcium (4.6-5.3) mg/dL 07/07/20 Range/Units 12:18 RBC (3.65-5.03) M/mm3 Hgb (11.8-15.2) gm/dl Hct (35.5-45.6) % MCHC (32-34) % RDW (13.2-15.2) % Seg Neuts % (Manual) (40.0-70.0) % Nucleated RBC % (0.0-0.9) % Lymphocytes # (Manual) (1.2-5.4) K/mm3 POC ABG pO2 (83-108) mmHg ABG Hemoglobin (12.0-17.5) ABG Sodium (136.0-145.0) mmol/L ABG Potassium (3.40-4.50) mmol/L ABG Glucose (65-95) mg/dL Sodium (137-145) mmol/L Potassium (3.6-5.0) mmol/L Chloride (98-107) mmol/L BUN (9-20) mg/dL Creatinine (0.8-1.3) mg/dL Glucose (75-100) mg/dL POC Glucose 108 H (70-105) mg/dL Calcium (8.4-10.2) mg/dL Arterial Blood Glucose (65-95) mg/dL Arterial Blood Ionized Calcium (4.6-5.3) mg/dL
[2020-07-08] MEDS: INSULIN REGULAR, HUMAN 100 UNITS/1 ML SUB-Q SCH ×4 (00:26→18:03)
[2020-07-08] MEDS: METOCLOPRAMIDE 10 MG/2 ML INJ IV SCH (01:00)
[2020-07-08] MEDS: dilTIAZem 60 MG TAB PO SCH ×2 (01:00→05:27)
[2020-07-08] MEDS: NORepinephrine/NS 4 MG-250 ML 4 MG/250 ML BAG IV SCH ×3 (02:05→12:39)
[2020-07-08] MEDS: fentaNYL DRIP Premix 2,000 MCG/100 ML BAG IV SCH ×4 (04:29→22:58)
[2020-07-08 05:01] LABS: Hematocrit 22.2 % (35.5-45.6); Hemoglobin 7.3 gm/dl (11.8-15.2); Mean Corpuscular HGB Conc 33 % (32-34); Mean Corpuscular Volume 88 fl (84-94); Platelet Count 213 K/mm3 (140-440); Red Blood Count 2.52 M/mm3 (3.65-5.03); Red Cell Distribution Width 16.6 % (13.2-15.2)
[2020-07-08 05:03] LABS: Eosinophils % (Auto) 3.4 % (0.0-4.3); Lymphocytes % (Auto) 11.5 % (13.4-35.0); Monocytes % (Auto) 6.2 % (0.0-7.3)
[2020-07-08 05:04] LABS: Basophils % (Auto) 0.7 % (0.0-1.8); Lymphocytes # (Auto) 1.2 K/mm3 (1.2-5.4); Monocytes # (Auto) 0.6 K/mm3 (0.0-0.8)
[2020-07-08 05:05] LABS: Basophils # (Auto) 0.1 K/mm3 (0.0-0.1); Eosinophils # (Auto) 0.4 K/mm3 (0.0-0.4)
[2020-07-08 05:15] LABS: Calcium 7.9 mg/dL (8.4-10.2)
[2020-07-08] MEDS: HEPARIN 5,000 UNIT/1 ML VIAL SUB-Q SCH ×3 (05:45→22:01)
[2020-07-08] MEDS: SODIUM BICARBONATE 650 MG TAB PO SCH ×3 (08:20→20:59)
[2020-07-08] MEDS: POLYETHYLENE GLYCOL 3350 17 GM POWDER PO SCH (09:17)
[2020-07-08] MEDS: DOCUSATE SODIUM 100 MG/10 ML ORAL LIQD FEEDTUBE SCH ×2 (09:17→22:15)
[2020-07-08] MEDS: QUEtiapine 200 MG TAB PO SCH ×2 (09:30→22:52)
[2020-07-08] MEDS: CHOLECALCIFEROL (VIT D3) 1000 UNIT (25 mcg) TAB PO SCH (09:30)
[2020-07-08] MEDS: FAMOTIDINE 20 MG/2 ML INJ IV SCH (09:30)
[2020-07-08] MEDS: dexAMETHasone 4 MG/ML VIAL IV SCH (09:30)
[2020-07-08] MEDS: ZINC SULFATE 220 MG CAP PO SCH ×2 (09:30→22:53)
[2020-07-08] MEDS: ASCORBIC ACID 250 MG TAB PO SCH ×2 (09:32→22:52)
--- NOTE | 2020-07-08 12:02 | Progress Note ---
Assessment and Plan - Patient Problems (1) GIRISH (acute kidney injury) Current Visit: Yes Status: Acute Plan to address problem: Acute kidney failure 2/2 prerenal azotemia versus acute tubular necrosis, patient without significant renal recovery, remains dialysis dependent. cont HD on MWF schedule (2) Severe sepsis with septic shock Current Visit: Yes Status: Acute Plan to address problem: Continue antibiotics per infectious disease microsoft bi consultant appropriately adjusted to the degree of renal function. Patient is on intermittent vasopressors to [place] in MAP > 65mmHg . (3) Hyperkalemia Current Visit: Yes Status: Acute Plan to address problem: corrected with HD (4) Metabolic acidosis Current Visit: Yes Status: Acute Plan to address problem: Acidosis corrected with dialysis. (5) Acute respiratory failure with hypoxia Current Visit: Yes Status: Acute Plan to address problem: Continue respiratory management by pulmonary (6) Pneumonia due to COVID-19 virus Current Visit: Yes Status: Acute Plan to address problem: IV Dexamethasone Supplemental oxygen/Respiratory support as needed Proning as tolerated Remdesevir contra-indicated due to Kidney failure Prophylactic anticoagulation Trend inflammatory markers to assess disease progression and prognosis Subjective Date of service: 07/08/20 Principal diagnosis: ARF/Septic Shock/COVID-19 PNA, AF with RVR Interval history: Patient was not examined today due to the COVID-19 status 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 I reviewed multidisciplinary notes and discussed with staff and physicians as needed. Patient is sedated on propofol and fentanyl. He is on anticoagulation with intravenous heparin. HD well tolerated yesterday with 1L UF. pt remains off vasopressors, on ventilator support with FiO2 70%, undergoing HD Objective - Exam Narrative Exam: exam deferred d/t PPE preservation - Vital Signs Vital signs: Vital Signs - 12hr 07/08/20 07/08/20 07/08/20 00:15 00:30 00:45 Temperature Pulse Rate 94 H 108 H 93 H Pulse Rate [ From Monitor] Respiratory 16 18 15 Rate Blood Pressure 102/39 104/41 103/44 O2 Sat by Pulse 97 97 97 Oximetry O2 Sat by Pulse Oximetry [ Anterior Bilateral Throughout] 07/08/20 07/08/20 07/08/20 01:00 01:15 01:30 Temperature Pulse Rate 93 H 93 H 99 H Pulse Rate [ From Monitor] Respiratory 17 16 17 Rate Blood Pressure 111/39 92/39 88/43 O2 Sat by Pulse 97 97 96 Oximetry O2 Sat by Pulse Oximetry [ Anterior Bilateral Throughout] 07/08/20 07/08/20 07/08/20 01:45 02:00 02:15 Temperature Pulse Rate 98 H 93 H 98 H Pulse Rate [ From Monitor] Respiratory 16 16 16 Rate Blood Pressure 86/47 77/37 72/42 O2 Sat by Pulse 96 97 86 Oximetry O2 Sat by Pulse Oximetry [ Anterior Bilateral Throughout] 07/08/20 07/08/20 07/08/20 02:30 02:45 03:00 Temperature Pulse Rate 95 H 94 H 109 H Pulse Rate [ From Monitor] Respiratory 19 21 19 Rate Blood Pressure 81/45 114/48 106/48 O2 Sat by Pulse 97 97 97 Oximetry O2 Sat by Pulse Oximetry [ Anterior Bilateral Throughout] 07/08/20 07/08/20 07/08/20 03:15 03:21 03:30 Temperature 97.9 F Pulse Rate 101 H 90 Pulse Rate [ From Monitor] Respiratory 18 16 Rate Blood Pressure 108/48 106/48 O2 Sat by Pulse 97 97 Oximetry O2 Sat by Pulse Oximetry [ Anterior Bilateral Throughout] 07/08/20 07/08/20 07/08/20 03:45 03:53 04:00 Temperature Pulse Rate 102 H 104 H 110 H Pulse Rate [ 92 H From Monitor] Respiratory 17 18 Rate Blood Pressure 111/49 106/48 112/50 O2 Sat by Pulse 97 97 96 Oximetry O2 Sat by Pulse Oximetry [ Anterior Bilateral Throughout] 07/08/20 07/08/20 07/08/20 04:15 04:30 04:45 Temperature Pulse Rate 100 H 102 H 96 H Pulse Rate [ From Monitor] Respiratory 15 20 14 Rate Blood Pressure 101/48 103/49 110/49 O2 Sat by Pulse 96 96 96 Oximetry O2 Sat by Pulse Oximetry [ Anterior Bilateral Throughout] 07/08/20 07/08/20 07/08/20 05:00 05:15 05:27 Temperature Pulse Rate 102 H 104 H 97 H Pulse Rate [ From Monitor] Respiratory 13 18 Rate Blood Pressure 109/46 100/45 100/45 O2 Sat by Pulse 96 96 Oximetry O2 Sat by Pulse Oximetry [ Anterior Bilateral Throughout] 07/08/20 07/08/20 07/08/20 05:30 05:45 06:00 Temperature Pulse Rate 111 H 101 H 101 H Pulse Rate [ From Monitor] Respiratory 16 15 17 Rate Blood Pressure 102/45 99/44 105/45 O2 Sat by Pulse 97 97 98 Oximetry O2 Sat by Pulse Oximetry [ Anterior Bilateral Throughout] 07/08/20 07/08/20 07/08/20 06:15 06:30 06:45 Temperature Pulse Rate 99 H 114 H 107 H Pulse Rate [ From Monitor] Respiratory 17 15 16 Rate Blood Pressure 102/46 92/41 99/48 O2 Sat by Pulse 98 98 98 Oximetry O2 Sat by Pulse Oximetry [ Anterior Bilateral Throughout] 07/08/20 07/08/20 07/08/20 07:00 07:15 07:30 Temperature Pulse Rate 102 H 105 H 105 H Pulse Rate [ From Monitor] Respiratory 19 15 14 Rate Blood Pressure 101/47 100/49 108/49 O2 Sat by Pulse 96 96 97 Oximetry O2 Sat by Pulse Oximetry [ Anterior Bilateral Throughout] 07/08/20 07/08/20 07/08/20 07:45 08:00 08:15 Temperature 98.2 F Pulse Rate 107 H 120 H 107 H Pulse Rate [ 94 H From Monitor] Respiratory 15 15 13 Rate Blood Pressure 102/52 107/48 112/48 O2 Sat by Pulse 97 86 91 Oximetry O2 Sat by Pulse Oximetry [ Anterior Bilateral Throughout] 07/08/20 07/08/20 07/08/20 08:30 08:40 08:45 Temperature 98.9 F Pulse Rate 94 H 94 H 103 H Pulse Rate [ From Monitor] Respiratory 18 15 Rate Blood Pressure 106/47 106/47 112/87 O2 Sat by Pulse 96 97 Oximetry O2 Sat by Pulse 97 Oximetry [ Anterior Bilateral Throughout] 07/08/20 07/08/20 07/08/20 09:00 09:15 09:30 Temperature Pulse Rate 100 H 112 H 103 H Pulse Rate [ From Monitor] Respiratory 16 15 16 Rate Blood Pressure 121/49 108/56 113/54 O2 Sat by Pulse 97 97 96 Oximetry O2 Sat by Pulse Oximetry [ Anterior Bilateral Throughout] 07/08/20 07/08/20 07/08/20 09:45 10:00 10:15 Temperature Pulse Rate 106 H 106 H 104 H Pulse Rate [ From Monitor] Respiratory 15 15 21 Rate Blood Pressure 118/53 114/55 110/49 O2 Sat by Pulse 97 89 Oximetry O2 Sat by Pulse Oximetry [ Anterior Bilateral Throughout] 07/08/20 07/08/20 07/08/20 10:30 10:45 11:00 Temperature Pulse Rate 111 H 106 H 99 H Pulse Rate [ From Monitor] Respiratory 14 16 14 Rate Blood Pressure 113/48 105/47 112/55 O2 Sat by Pulse 88 98 97 Oximetry O2 Sat by Pulse Oximetry [ Anterior Bilateral Throughout] 07/08/20 07/08/20 07/08/20 11:01 11:15 11:30 Temperature Pulse Rate 102 H 111 H 101 H Pulse Rate [ From Monitor] Respiratory Rate Blood Pressure 112/55 103/54 110/53 O2 Sat by Pulse Oximetry O2 Sat by Pulse Oximetry [ Anterior Bilateral Throughout] 07/08/20 11:46 Temperature Pulse Rate 105 H Pulse Rate [ From Monitor] Respiratory Rate Blood Pressure 117/53 O2 Sat by Pulse Oximetry O2 Sat by Pulse Oximetry [ Anterior Bilateral Throughout] - Lab 07/08/20 04:00 07/08/20 04:00 Most recent lab results ABG pH 7.220 (7.320-7.450) L 07/08/20 04:09 ABG pCO2 56.4 mm Hg 07/05/20 04:30 ABG pO2 151.9 mm Hg (80.0-90.0) H 07/05/20 04:30 ABG HCO3 26.8 mmol/L (20.0-26.0) H 07/05/20 04:30 ABG O2 Saturation 98.7 % (95.0-99.0) 07/05/20 04:30 Calcium 7.9 mg/dL (8.4-10.2) L 07/08/20 04:00 Phosphorus 9.40 mg/dL (2.5-4.5) H 06/30/20 03:50 Magnesium 2.70 mg/dL (1.7-2.3) H 06/18/20 20:33 Urine Creatinine 192.4 mg/dL (0.1-20.0) H 06/18/20 15:00 Urine Sodium 28 mmol/L 06/18/20 15:00 Medications & Allergies - Medications Allergies/Adverse Reactions: Allergies No Known Allergies Allergy (Unverified 06/17/20 14:24) Home Medications: Home Medications Medication Instructions Recorded Confirmed Last Taken Type Losartan/Hydrochlorothiazide 1 each PO QDAY 06/19/20 06/19/20 Unknown History [Losartan-Hctz 100-25 mg Tab] amLODIPine [Norvasc] 5 mg PO DAILY 06/19/20 06/19/20 Unknown History Active Medications: Generic Name Dose Route Start Last Admin Trade Name Freq PRN Reason Stop Dose Admin Acetaminophen 650 mg 06/17/20 14:17 07/03/20 09:16 Acetaminophen 325 Mg Tab PO 650 mg Q4H PRN Administration Pain MILD(1-3)/Fever >100.5/ROBERTS Amiodarone HCl 200 mg 07/08/20 12:00 Amiodarone 200 Mg Tab PO BID CONNOR Lipase/Protease/Amylase 1 each 06/19/20 12:15 Lipase 10,500/Protease 25,000/Amylase 43,750 (Units) Dr Kulkarni FEEDTUBE PRN PRN For Clogged Feeding Tube Ascorbic Acid 250 mg 06/17/20 22:00 07/08/20 09:32 Ascorbic Acid 250 Mg Tab PO 250 mg BID CONNOR Administration Cholecalciferol 1,000 unit 06/18/20 10:00 07/08/20 09:30 Cholecalciferol (Vit D3) 1000 Unit (25 Mcg) Tab PO 1,000 unit DAILY [facility]NOR Administration Dexamethasone 6 mg 07/03/20 14:00 07/08/20 09:30 Dexamethasone 4 Mg/Ml Vial IV 07/13/20 13:59 6 mg DAILY CONNOR Administration Docusate Sodium 100 mg 06/23/20 15:00 07/08/20 09:17 Docusate Sodium 100 Mg/10 Ml Oral Liqd FEEDTUBE Not Given BID CONNOR Famotidine 20 mg 06/20/20 11:00 07/08/20 09:30 Famotidine 20 Mg/2 Ml Inj IV 20 mg DAILY CONNOR Administration Fentanyl 50 mcg 06/18/20 01:02 06/28/20 04:32 Fentanyl 100 Mcg/2 Ml Inj IV 50 mcg Q10MIN PRN Administration ANALGESIA Heparin Sodium (Porcine) 5,000 unit 06/22/20 12:53 06/30/20 13:36 Heparin 10,000 Unit/1 Ml Vial IV 5,000 unit PAM PRN Administration hemodialysis Heparin Sodium (Porcine) 5,000 unit 07/03/20 22:00 07/08/20 05:45 Heparin 5,000 Unit/1 Ml Vial SUB-Q 5,000 unit Q8HR [facility]NOR Administration Hydrophilic Ointment 1 applic 06/17/20 22:52 07/02/20 20:45 Lip Therapy Vaseline TP 1 applic Q2HR PRN Administration Dry Lips Propofol 1,000 mg in 100 mls @ 3.402 mls/hr 06/18/20 01:00 07/08/20 09:30 Diprivan 10 Mg/Ml IV 10 mcg/kg/min TITR CONNOR 6.804 mls/hr Administration Protocol 5 MCG/KG/MIN Fentanyl Citrate 2,000 mcg in 100 mls @ 5.67 mls/hr 06/18/20 02:00 07/08/20 09:31 Fentanyl Drip Premix IV 3 mcg/kg/hr TITR CONNOR 17.01 mls/hr Administration Protocol 1 MCG/KG/HR Sodium Chloride 500 mls @ 1 mls/hr 06/18/20 09:38 06/19/20 21:37 Nacl 0.9% 500 Ml IV 0 mls/hr DIRECT PRN Infusion ARTERIAL LINE FLUSH Sodium Chloride 100 mls @ 999 mls/hr 07/03/20 11:11 Nacl 0.9% IV PAM PRN Hypotension Norepinephrine 4 mg in 250 mls @ 7.5 mls/hr 07/08/20 02:06 07/08/20 08:15 Levophed Drip 4 Mg/Ns 250 Ml IV 14 mcg/min TITR CONNOR 52.5 mls/hr Titration Protocol 2 MCG/MIN Insulin Human Regular 0 units 06/18/20 12:00 07/08/20 05:46 Insulin Regular, Human 100 Units/1 Ml SUB-Q Not Given Q6HR [facility] Protocol Multi-Ingred Cream/Lotion/Oil/Oint 1 applic 06/17/20 22:52 Mineral Oil/Petrolatum, White Ophth Oint 3.5 Gm OU Q4HR PRN Dry Eye(s) Ondansetron HCl 4 mg 06/17/20 14:17 Ondansetron 4 Mg/2 Ml Inj IV Q8H PRN Nausea And Vomiting Polyethylene Glycol 17 gm 06/23/20 15:00 07/08/20 09:17 Polyethylene Glycol 3350 17 Gm Powder PO Not Given QDAY [facility] Quetiapine Fumarate 200 mg 06/28/20 13:00 07/08/20 09:30 Quetiapine 200 Mg Tab PO 200 mg BID [facility] Administration Simple Syrup 15 ml 06/19/20 12:15 Simple Syrup 15 Ml FEEDTUBE PRN PRN Hypoglycemia Simple Syrup 30 ml 06/19/20 12:15 Simple Syrup 15 Ml FEEDTUBE PRN PRN Hypoglycemia Sodium Bicarbonate 325 mg 06/19/20 12:15 Sodium Bicarbonate 325 Mg Tab FEEDTUBE PRN PRN For Clogged Feeding Tube Sodium Bicarbonate 650 mg 07/04/20 10:00 07/08/20 08:20 Sodium Bicarbonate 650 Mg Tab PO 650 mg TID [facility] Administration Sodium Chloride 10 ml 06/17/20 22:00 07/08/20 09:32 Sodium Chloride 0.9% 10 Ml Flush Syringe IV 10 ml BID [facility] Administration Sodium Chloride 10 ml 06/17/20 14:17 Sodium Chloride 0.9% 10 Ml Flush Syringe IV PRN PRN LINE FLUSH Sodium Polystyrene Sulfonate 15 gm 07/03/20 11:19 07/05/20 10:36 Sodium Polystyrene 15 Gm/60 Ml Oral Liqd PO 15 gm Q6HR PRN Administration Hyperkalemia Zinc Sulfate 220 mg 06/17/20 22:00 07/08/20 09:30 Zinc Sulfate 220 Mg Cap PO 220 mg BID CONNOR Administration
[2020-07-08] MEDS ORDERED: SODIUM CHLORIDE 0.9% 100 ML IV PRN (12:19)
[2020-07-08] MEDS: AMIODARONE 200 MG TAB PO SCH ×3 (12:38→23:10)
--- NOTE | 2020-07-08 12:38 | Progress Note ---
Assessment and Plan Assessment and plan: 59-year-old white male who was admitted for pneumonia secondary to Covid with associated respiratory failure and sepsis. Acute metabolic encephalopathy -Due to severe sepsis and severe hypoxia -CT head showed no acute process, currently intubated, continue supportive care with frequent neuro check Acute hypoxic respiratory failure -Due to severe COVID-19 pneumonia -Intubated following admission overnight as patient was unable to maintain oxygenation with 100% FiO2 with BiPAP -Critical care following, frequent nebulizer breathing treatment, s/p empiric steroid -Patient currently mechanically ventilated and unable to wean off Severe septic shock -Status post 2 pressor support -Still intermittently requiring pressor support, currently off pressor COVID-19 pneumonia -Follow inflammatory markers, ID consulted --Patient initially tested positive for COVID-19 virus about 2 weeks before this admission -CXR shows patchy parenchymal disease which represent pulmonary edema or atypical pneumonia -Placed on dexamethasone for total 10 days and completed remdesivir total 5 days -Continue empiric antibiotics for now per ID recommendation -Droplet/contact isolation -Continue SPO2 monitoring -Supplemental oxygen as needed -Pulmonary hygiene, Prone intermittently to improve oxygenation -Vitamin C, vitamin D, zinc -Anticoagulation per protocol GIRISH, likely ATN -Follow BMP daily, avoid nephrotoxins -Consulted nephrology, follow recommendations -Renal function continues to decline, started on hemodialysis since 06/22/20 Hyperkalemia -Treated aggressively, due to renal failure -s/p Calcium gluconate IV sodium bicarbonate and Kayexalate given -Patient currently on scheduled hemodialysis hypokalemia, repleted Supraventricular tachycardia/paroxysmal atrial fibrillation -likely due to severe sepsis -Status post IV amiodarone drip for rate control -Currently on Cardizem with tube feeding -Consulted cardiology, echo showed preserved EF -Placed on heparin drip but discontinued due to severe anemia requiring transfusion Elevated LFT, due to shock liver from severe sepsis and COVID-19 infection -Continue to trend Anemia likely due to severe sepsis and declining renal function Morbid obesity, -Associated with poor outcome with Covid infection -need counseling for diet and exercise and healthy lifestyles once clinically stable as outpatient DVT prophylaxis, on hold now for anemia The high probability of a clinically significant, sudden or life threatening deterioration of the [SALES SERVICE PROFESSIONAL, CVS, renal, 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 The aggregate critical care time was [32] minutes. This time is in addition to time spent performing reported procedures but includes the following: [x] Data Review and interpretation [x] Patient assessment and monitoring of vital signs [x] Documentation [x] Medication orders and management Daily course: 06/18: Patient got intubated overnight. Patient was placed on BiPAP to maintain oxygenation with 100% FiO2 but apparently he found to take off his argueta which made his oxygen saturation go down at 60s/50s and patient was found altered mental status. Code met was called immediately. Patient was transferred to ICU and intubated, patient currently on 2 pressors, intubated with 100% FiO2, renal function noted to be decline, nephrology consulted. Discussed with [place] physician Dr. Thompson and requested call back on Saturday. Poor prognosis, continue to monitor with aggressive supportive care. Also called family/ to update clinical status. 06/19: Repeat COVID test was positive. cont cefepime, remdesivir per ID recommendation. follow inflammatory markers, cbc, bmp. placed on heparin drip for atrial fib 06/20: Remains on mechanical ventilation, on 2 pressors, on heparin drip. discussed with and daughter by phone. Renal function declining. cont supportive care for now. 06/21: Renal function cont to decline, urine outpt sig decreased. started on lasix 80mg BID, plan to follow urine output, if no improvement patient need to start on HD. called and daughter today. updated all clinical details 06/22: Renal function continues to decline with uremia and hyperkalemia. Will need to proceed with hemodialysis. Nephrology discussed with the family and they agrees for the hemodialysis. Patient remains on pressor support and me chanical ventilation. Vas-Cath placed today by vascular started on hemodialysis today. 06/23: 2nd round of HD today, remains on 2 pressors. per RN not tolerating TF, has no record of BM since 06/18. start on stool softner. follow cbc/bmp. updated family( and daughter) by phone -all question answered to best of my knowledge and to their satisfaction. Patient remains critically ill with a very poor prognosis. 06/24: Continue supportive care, Very poor prognosis, Fire Department Marine Engineer to discuss with family in am due to the futility of the condition. 06/25/2020 continue supportive care very poor prognosis 06/26/2020 continue supportive care very poor prognosis family updated 06/27/2020 continue supportive care and weaning if possible 06/28/2020 continue supportive care, talk with at length 06/29: Resumed care. K level persistently high. give one dose of bicarbonate, plan for HD today, recheck k after HD. updated family by phone 06/30: updated family by phone. Patient remains on amiodarone drip and vasopressin. Getting HD at the bedside. Tolerating tube feeding at low rate. 07/01: Hb dropped to 6.4 today, transfuse one unit PRBC. patient is off pressor today, remains on amioderone. cont to monitor 07/02: Called patient and updated clinical details. Patient remains critically ill, still intubated. Patient's oxygen requirement and PEEP pressure has went down. Continue weaning protocol per critical care recommendation. Patient remains off pressor. Continue to wean off from amiodarone and plan to rate control with p.o. medications. Tolerating tube feeding. H&H stable today. Order for stool for occult blood. Monitor H&H and BMP. Continue to follow clinically 07/03: discussed with [facility] physician today. Patient back on 100percent Fio2 since last night. planned for emergent Hd today. spiked fever, start IV Cefepime + Vancomycin renally dosed. Restarted Levophed today, remains on amiodarone drip. Patient family was updated by critical care attending today. 07/04: Patient has hemodialysis yesterday and also plan for today for volume overload and pulmonary edema. Patient currently on 80% FiO2. Remains on Levophed and amiodarone. Hemoglobin dropped to 6.7 without any evidence of active bleeding. LFTs remain stable. Repeat Covid test on 06/30 and 07/03 remains positive. Will transfuse another unit of packed RBC today. Called family for update -explained family that patient is critically ill with very poor prognosis. 07/05: Patient on 70% FiO2 with PEEP of 14. h/h stable after transfusion. hyperkalemia improved, cont sodiumbicarbonate pill with TF. follow BMP. off levophed today, remains on amioderone. poor prognosis. 07/06: Patient remains on amiodarone drip, maintaining BP without any pressor. FiO2 requirement trended down to 60% with PEEP of 14. Continue to follow clinically. Plan to wean off amiodarone drip as tolerated. Wean off from sedation as tolerated. Updated family. Patient remains critically ill with p oor prognosis. 07/07: Called family for update. Off amiodarone drip today, patient also off pressor. FiO2 requirement trended up again to 80-100%. Continue to provide supportive care, monitor clinically. Having difficulty to wean off from the vent support. Patient is persistently positive for COVID-19 and COVID-19 antibody is nonreactive. Patient remains critically ill with very poor prognosi s. 07/08: Continue supportive care. Straightedge Worker staff electronic warfare officer and medical sales specialist input noted. Prognosis remains guarded to poor. Management per team. Critical care time 35-minute History Interval history: patient seen and examined, remains on full ventilator Hospitalist Physical - Physical exam Narrative exam: GENERAL: Well-developed obese white male lying on bed who is mechanically vent ilated and sedated. HEENT: Normocephalic. Atraumatic. NG tube in place NECK: Supple. CHEST/LUNGS: On mechanical ventilation HEART/CARDIOVASCULAR: Regular rate and rhythm ABDOMEN: Visibly not distended SKIN: There is no rash NEURO: Patient is intubated MUSCULOSKELETAL: No joint effusion EXTRIMITY: no cyanosis or clubbing. PSYCH: Unable to assess. - Constitutional Vitals: Temp Pulse Resp BP Pulse Ox 98.3 F 100 H 19 112/55 97 07/08/20 12:14 07/08/20 12:14 07/08/20 12:14 07/08/20 12:14 07/08/20 12:14 General appearance: Present: no acute distress, well-nourished HEART Score - HEART Score Troponin: Troponin T < 0.010 ng/mL (0.00-0.029) 06/17/20 12:33 Results - Labs CBC & Chem 7: 07/08/20 04:00 07/08/20 04:00 Labs: Laboratory Last Values WBC 10.2 K/mm3 (4.5-11.0) 07/08/20 04:00 RBC 2.52 M/mm3 (3.65-5.03) L 07/08/20 04:00 Hgb 7.3 gm/dl (11.8-15.2) L 07/08/20 04:00 Hct 22.2 % (35.5-45.6) L 07/08/20 04:00 MCV 88 fl (84-94) 07/08/20 04:00 MCH 29 pg (28-32) 07/08/20 04:00 MCHC 33 % (32-34) 07/08/20 04:00 RDW 16.6 % (13.2-15.2) H 07/08/20 04:00 Plt Count 213 K/mm3 (140-440) 07/08/20 04:00 Lymph % (Auto) 11.5 % (13.4-35.0) L 07/08/20 04:00 Howard % (Auto) 6.2 % (0.0-7.3) 07/08/20 04:00 Eos % (Auto) 3.4 % (0.0-4.3) 07/08/20 04:00 Baso % (Auto) 0.7 % (0.0-1.8) 07/08/20 04:00 Lymph # (Auto) 1.2 K/mm3 (1.2-5.4) 07/08/20 04:00 Howard # (Auto) 0.6 K/mm3 (0.0-0.8) 07/08/20 04:00 Eos # (Auto) 0.4 K/mm3 (0.0-0.4) 07/08/20 04:00 Baso # (Auto) 0.1 K/mm3 (0.0-0.1) 07/08/20 04:00 Add Manual Diff Complete 07/07/20 05:04 Total Counted 100 07/07/20 05:04 Seg Neutrophils % 78.2 % (40.0-70.0) H 07/08/20 04:00 Seg Neuts % (Manual) 82.0 % (40.0-70.0) H 07/07/20 05:04 Band Neutrophils % 3.0 % 06/26/20 05:47 Lymphocytes % (Manual) 15.0 % (13.4-35.0) 07/07/20 05:04 Reactive Lymphs % (Man) 1.0 % 06/23/20 04:00 Monocytes % (Manual) 3.0 % (0.0-7.3) 07/07/20 05:04 Metamyelocytes % 1.0 % 06/26/20 05:47 Nucleated RBC % 1.0 % (0.0-0.9) H 07/07/20 05:04 Seg Neutrophils # 8.0 K/mm3 (1.8-7.7) H 07/08/20 04:00 Seg Neutrophils # Man 6.0 K/mm3 (1.8-7.7) 07/07/20 05:04 Band Neutrophils # 0.0 K/mm3 07/07/20 05:04 Lymphocytes # (Manual) 1.1 K/mm3 (1.2-5.4) L 07/07/20 05:04 Abs React Lymphs (Man) 0.0 K/mm3 07/07/20 05:04 Monocytes # (Manual) 0.2 K/mm3 (0.0-0.8) 07/07/20 05:04 Eosinophils # (Manual) 0.0 K/mm3 (0.0-0.4) 07/07/20 05:04 Basophils # (Manual) 0.0 K/mm3 (0.0-0.1) 07/07/20 05:04 Metamyelocytes # 0.0 K/mm3 07/07/20 05:04 Myelocytes # 0.0 K/mm3 07/07/20 05:04 Promyelocytes # 0.0 K/mm3 07/07/20 05:04 Blast Cells # 0.0 K/mm3 07/07/20 05:04 Pathologist Review Not Reportable 06/26/20 05:47 WBC Morphology Not Reportable 07/07/20 05:04 Hypersegmented Neuts Not Reportable 07/07/20 05:04 Hyposegmented Neuts Not Reportable 07/07/20 05:04 Hypogranular Neuts Not Reportable 07/07/20 05:04 Smudge Cells Not Reportable 07/07/20 05:04 Toxic Granulation Not Reportable 07/07/20 05:04 Toxic Vacuolation Not Reportable 07/07/20 05:04 Dohle Bodies Not Reportable 07/07/20 05:04 Pelger-Huet Anomaly Not Reportable 07/07/20 05:04 Carlito Rods Not Reportable 07/07/20 05:04 Platelet Estimate Consistent w auto 07/07/20 05:04 Clumped Platelets Not Reportable 07/07/20 05:04 Plt Clumps, EDTA Not Reportable 07/07/20 05:04 Large Platelets Not Reportable 07/07/20 05:04 Giant Platelets Not Reportable 07/07/20 05:04 Platelet Satelliting Not Reportable 07/07/20 05:04 Plt Morphology Comment Not Reportable 07/07/20 05:04 RBC Morphology Normal 07/07/20 05:04 Dimorphic RBCs Not Reportable 07/07/20 05:04 Polychromasia Not Reportable 07/07/20 05:04 Hypochromasia Not Reportable 07/07/20 05:04 Poikilocytosis Not Reportable 07/07/20 05:04 Anisocytosis Not Reportable 07/07/20 05:04 Microcytosis Not Reportable 07/07/20 05:04 Macrocytosis Not Reportable 07/07/20 05:04 Spherocytes Not Reportable 07/07/20 05:04 Pappenheimer Bodies Not Reportable 07/07/20 05:04 Sickle Cells Not Reportable 07/07/20 05:04 Target Cells Not Reportable 07/07/20 05:04 Tear Drop Cells Not Reportable 07/07/20 05:04 Ovalocytes Not Reportable 07/07/20 05:04 Helmet Cells Not Reportable 07/07/20 05:04 [place] Bodies Not Reportable 07/07/20 05:04 [place] Rings Not Reportable 07/07/20 05:04 [place] Cells Not Reportable 07/07/20 05:04 Bite Cells Not Reportable 07/07/20 05:04 Crenated Cell Not Reportable 07/07/20 05:04 Elliptocytes Not Reportable 07/07/20 05:04 Acanthocytes (Spur) Not Reportable 07/07/20 05:04 Rouleaux Not Reportable 07/07/20 05:04 Hemoglobin C Crystals Not Reportable 07/07/20 05:04 Schistocytes Not Reportable 07/07/20 05:04 Malaria parasites Not Reportable 07/07/20 05:04 Victoriano Bodies Not Reportable 07/07/20 05:04 Hem Pathologist Commnt No 07/07/20 05:04 PT 17.4 Sec. (12.2-14.9) H 06/26/20 05:47 INR 1.44 (0.87-1.13) H 06/26/20 05:47 APTT 28.5 Sec. (24.2-36.6) 06/26/20 05:47 D-Dimer 6608.00 ng/mlDDU (0-234) H 07/03/20 14:50 Heparin Anti-Xa Level < 0.10 U.I./ml (0.3-0.7) L 06/26/20 01:30 ABG pH 7.220 (7.320-7.450) L 07/08/20 04:09 POC ABG pCO2 60.5 mmHg (32.0-48.0) H 07/08/20 04:09 ABG pCO2 56.4 mm Hg 07/05/20 04:30 POC ABG pO2 107.9 mmHg (83-108) 07/08/20 04:09 ABG pO2 151.9 mm Hg (80.0-90.0) H 07/05/20 04:30 POC ABG HCO3 24.2 07/08/20 04:09 ABG HCO3 26.8 mmol/L (20.0-26.0) H 07/05/20 04:30 ABG O2 Saturation 98.7 % (95.0-99.0) 07/05/20 04:30 ABG O2 Content 5.0 (0.0-44) 07/04/20 05:20 POC ABG Base Excess -3.6 07/08/20 04:09 ABG Base Excess 0.1 mmol/L (-2.0-3.0) 07/05/20 04:30 ABG Hemoglobin 8.2 (12.0-17.5) L 07/08/20 04:09 ABG Oxyhemoglobin 96.2 (94-98) 07/08/20 04:09 ABG Carboxyhemoglobin 1.7 % (0.0-5.0) 07/05/20 04:30 ABG Methemoglobin 0.1 (0.0-1.5) 07/08/20 04:09 ABG Sodium 131.3 mmol/L (136.0-145.0) L 07/08/20 04:09 ABG Potassium 5.2 mmol/L (3.40-4.50) H 07/08/20 04:09 ABG Chloride 99.0 mmol/L (98-107) 07/08/20 04:09 ABG Glucose 103 mg/dL (65-95) H 07/08/20 04:09 Oxyhemoglobin 96.5 % (95.0-99.0) 07/05/20 04:30 Carboxyhemoglobin 1.1 (0.5-1.5) 07/08/20 04:09 FiO2 80 07/08/20 04:09 Sodium 132 mmol/L (137-145) L 07/08/20 04:00 Potassium 5.4 mmol/L (3.6-5.0) H 07/08/20 04:00 Chloride 92.5 mmol/L (98-107) L 07/08/20 04:00 Carbon Dioxide 28 mmol/L (22-30) 07/08/20 04:00 Anion Gap 17 mmol/L 07/08/20 04:00 BUN 98 mg/dL (9-20) H 07/08/20 04:00 Creatinine 4.9 mg/dL (0.8-1.3) H 07/08/20 04:00 Estimated GFR 15 ml/min 07/08/20 04:00 BUN/Creatinine Ratio 20 % 07/08/20 04:00 Glucose 105 mg/dL (75-100) H 07/08/20 04:00 POC Glucose 99 mg/dL (70-105) 07/08/20 05:25 Lactic Acid < 0.20 mmol/L (0.7-2.0) L 07/03/20 14:50 Calcium 7.9 mg/dL (8.4-10.2) L 07/08/20 04:00 Phosphorus 9.40 mg/dL (2.5-4.5) H 06/30/20 03:50 Magnesium 2.70 mg/dL (1.7-2.3) H 06/18/20 20:33 Ferritin 1171.0 ng/mL (30.0-300.0) H 07/03/20 14:50 Total Bilirubin 0.60 mg/dL (0.1-1.2) 07/05/20 08:21 Direct Bilirubin 0.5 mg/dL (0-0.2) H 07/05/20 08:21 Indirect Bilirubin 0.1 mg/dL 07/05/20 08:21 AST 75 units/L (5-40) H 07/05/20 08:21 ALT 86 units/L (7-56) H 07/05/20 08:21 Alkaline Phosphatase 107 units/L (35-129) 07/05/20 08:21 Lactate Dehydrogenase 525 units/L (91-180) H 07/03/20 14:50 Total Creatine Kinase 618 units/L (55-170) H 06/29/20 Unknown Troponin T < 0.010 ng/mL (0.00-0.029) 06/17/20 12:33 C-Reactive Protein 31.50 mg/dL (0.00-1.30) H 07/03/20 14:50 Total Protein 5.6 g/dL (6.3-8.2) L D 07/05/20 08:21 Albumin 1.9 g/dL (3.9-5) L 07/05/20 08: Albumin/Globulin Ratio 0.5 % 07/05/20 08:21 Triglycerides 258 mg/dL (2-149) H 07/05/20 08:21 Procalcitonin 15.78 ng/mL (<0.15) 07/03/20 14:50 Arterial Blood Glucose 103 mg/dL (65-95) H 07/08/20 04:09 Arterial Blood Ionized Calcium 4.3 mg/dL (4.6-5.3) L 07/08/20 04:09 Urine Color Yellow (Yellow) 06/17/20 15:57 Urine Turbidity Clear (Clear) 06/17/20 15:57 Urine pH 6.0 (5.0-7.0) 06/17/20 15:57 Ur Specific [place] 1.019 (1.003-1.030) 06/17/20 15:57 Urine Protein 30 mg/dl mg/dL (Negative) 06/17/20 15:57 Urine Glucose (UA) Neg mg/dL (Negative) 06/17/20 15:57 Urine Ketones Neg mg/dL (Negative) 06/17/20 15:57 Urine Blood Sm (Negative) 06/17/20 15:57 Urine Nitrite Neg (Negative) 06/17/20 15:57 Ur Reducing Substances Not Reportable 06/17/20 15:57 Urine Bilirubin Neg (Negative) 06/17/20 15:57 Urine Ictotest Not Reportable 06/17/20 15:57 Urine Urobilinogen < 2.0 mg/dL (<2.0) 06/17/20 15:57 Ur Leukocyte Esterase Neg (Negative) 06/17/20 15:57 Urine WBC (Auto) 1.0 /HPF (0.0-6.0) 06/17/20 15:57 Urine RBC (Auto) 2.0 /HPF (0.0-6.0) 06/17/20 15:57 Urine Mucus Few /HPF 06/17/20 15:57 Urine Creatinine 192.4 mg/dL (0.1-20.0) H 06/18/20 15:00 Urine Sodium 28 mmol/L 06/18/20 15:00 Urine Chloride 31.1 mmolL (110-250) L 06/18/20 15:00 Nasal Screen MRSA (PCR) Negative (Negative) 06/19/20 10:38 Vancomycin Trough 22.7 ug/mL (5.0-20.0) H 06/20/20 08:25 Coronavirus (PCR) Positive (Negative) A 07/03/20 10:10 Hepatitis A IgM Ab Non-reactive (NonReactive) 06/22/20 17:00 Hep Bs Antigen Non-reactive (Negative) 06/22/20 17:00 Hep B Core IgM Ab Non-reactive (NonReactive) 06/22/20 17:00 Hepatitis C Antibody Non-reactive (NonReactive) 06/22/20 17:00 SARS-CoV-2 IgG Ab Nonreactive (NonReactive) 07/04/20 05:20 Blood Type A POSITIVE 07/04/20 09:25 Antibody Screen Negative 07/04/20 09:25 Crossmatch See Detail 07/04/20 09:25 - Diagnostic Impressions Diagnostic Impressions: Echocardiogram 06/29/20 06:00 Transthoracic Echocardiogram Indication: A-fib BP: 105/47 HR: 99 Conclusions *The study is technically very difficult and limited due to poor acoustic windows. *Global left ventricular wall motion and contractility are within normal limits. *The estimated ejection fraction is 55-60%. *There is no pericardial effusion. Findings Procedure Info: The study quality is technically difficult. The study is technically limited due to poor acoustic windows. Left Ventricle: Global left ventricular wall motion and contractility are within normal limits. Global left ventricular systolic function is normal. The estimated ejection fraction is 55-60%. Left Atrium: The left atrium is not well visualized. Right Ventricle: The right ventricle is not well visualized. Right Atrium: The right atrium is not well visualized. Aortic Valve: The aortic valve is not well visualized. Mitral Valve: The mitral valve is not well visualized. Tricuspid Valve: The tricuspid valve is not well visualized. Pulmonic Valve: The pulmonic valve is not well visualized. Pericardium: There is no pericardial effusion. Venous: There is no change in the dimension of the inferior vena cava with respiration consistent with markedly increased right atrial pressure. [place]/IV: Voiding Method Indwelling Catheter Active Medications - Current Medications Current Medications: Generic Name Dose Route Start Last Admin Trade Name Freq PRN Reason Stop Dose Admin Acetaminophen 650 mg 06/17/20 14:17 07/03/20 09:16 Acetaminophen 325 Mg Tab PO 650 mg Q4H PRN Administration Pain MILD(1-3)/Fever >100.5/ROBERTS Amiodarone HCl 200 mg 07/08/20 12:30 Amiodarone 200 Mg Tab PO BID CONNOR Lipase/Protease/Amylase 1 each 06/19/20 12:15 Lipase 10,500/Protease 25,000/Amylase 43,750 (Units) Dr Shad FEEDTUBE PRN PRN For Clogged Feeding Tube Ascorbic Acid 250 mg 06/17/20 22:00 07/08/20 09:32 Ascorbic Acid 250 Mg Tab PO 250 mg BID CONNOR Administration Cholecalciferol 1,000 unit 06/18/20 10:00 07/08/20 09:30 Cholecalciferol (Vit D3) 1000 Unit (25 Mcg) Tab PO 1,000 unit DAILY CONNOR Administration Dexamethasone 6 mg 07/03/20 14:00 07/08/20 09:30 Dexamethasone 4 Mg/Ml Vial IV 07/13/20 13:59 6 mg DAILY CONNOR Administration Docusate Sodium 100 mg 06/23/20 15:00 07/08/20 09:17 Docusate Sodium 100 Mg/10 Ml Oral Liqd FEEDTUBE Not Given BID CONNOR Famotidine 20 mg 06/20/20 11:00 07/08/20 09:30 Famotidine 20 Mg/2 Ml Inj IV 20 mg DAILY CONNOR Administration Fentanyl 50 mcg 06/18/20 01:02 06/28/20 04:32 Fentanyl 100 Mcg/2 Ml Inj IV 50 mcg Q10MIN PRN Administration ANALGESIA Heparin Sodium (Porcine) 5,000 unit 06/22/20 12:53 06/30/20 13:36 Heparin 10,000 Unit/1 Ml Vial IV 5,000 unit PAM PRN Administration hemodialysis Heparin Sodium (Porcine) 5,000 unit 07/03/20 22:00 07/08/20 05:45 Heparin 5,000 Unit/1 Ml Vial SUB-Q 5,000 unit Q8HR CONNOR Administration Hydrophilic Ointment 1 applic 06/17/20 22:52 07/02/20 20:45 Lip Therapy Vaseline TP 1 applic Q2HR PRN Administration Dry Lips Propofol 1,000 mg in 100 mls @ 3.402 mls/hr 06/18/20 01:00 07/08/20 09:30 Diprivan 10 Mg/Ml IV 10 mcg/kg/min TITR CONNOR 6.804 mls/hr Administration Protocol 5 MCG/KG/MIN Fentanyl Citrate 2,000 mcg in 100 mls @ 5.67 mls/hr 06/18/20 02:00 07/08/20 09:31 Fentanyl Drip Premix IV 3 mcg/kg/hr TITR CONNOR 17.01 mls/hr Administration Protocol 1 MCG/KG/HR Sodium Chloride 500 mls @ 1 mls/hr 06/18/20 09:38 06/19/20 21:37 Nacl 0.9% 500 Ml IV 0 mls/hr DIRECT PRN Infusion ARTERIAL LINE FLUSH Norepinephrine 4 mg in 250 mls @ 7.5 mls/hr 07/08/20 02:06 07/08/20 08:15 Levophed Drip 4 Mg/Ns 250 Ml IV 14 mcg/min TITR CONNOR 52.5 mls/hr Titration Protocol 2 MCG/MIN Sodium Chloride 100 mls @ 999 mls/hr 07/08/20 12:19 Nacl 0.9% IV PAM PRN Hypotension Insulin Human Regular 0 units 06/18/20 12:00 07/08/20 12:08 Insulin Regular, Human 100 Units/1 Ml SUB-Q Not Given Q6HR [facility] Protocol Multi-Ingred Cream/Lotion/Oil/Oint 1 applic 06/17/20 22:52 Mineral Oil/Petrolatum, White Ophth Oint 3.5 Gm OU Q4HR PRN Dry Eye(s) Ondansetron HCl 4 mg 06/17/20 14:17 Ondansetron 4 Mg/2 Ml Inj IV Q8H PRN Nausea And Vomiting Polyethylene Glycol 17 gm 06/23/20 15:00 07/08/20 09:17 Polyethylene Glycol 3350 17 Gm Powder PO Not Given QDAY CONNOR Quetiapine Fumarate 200 mg 06/28/20 13:00 07/08/20 09:30 Quetiapine 200 Mg Tab PO 200 mg BID CONNOR Administration Simple Syrup 15 ml 06/19/20 12:15 Simple Syrup 15 Ml FEEDTUBE PRN PRN Hypoglycemia Simple Syrup 30 ml 06/19/20 12:15 Simple Syrup 15 Ml FEEDTUBE PRN PRN Hypoglycemia Sodium Bicarbonate 325 mg 06/19/20 12:15 Sodium Bicarbonate 325 Mg Tab FEEDTUBE PRN PRN For Clogged Feeding Tube Sodium Bicarbonate 650 mg 07/04/20 10:00 07/08/20 08:20 Sodium Bicarbonate 650 Mg Tab PO 650 mg TID CONNOR Administration Sodium Chloride 10 ml 06/17/20 22:00 07/08/20 09:32 Sodium Chloride 0.9% 10 Ml Flush Syringe IV 10 ml BID CONNOR Administration Sodium Chloride 10 ml 06/17/20 14:17 Sodium Chloride 0.9% 10 Ml Flush Syringe IV PRN PRN LINE FLUSH Sodium Polystyrene Sulfonate 15 gm 07/03/20 11:19 07/05/20 10:36 Sodium Polystyrene 15 Gm/60 Ml Oral Liqd PO 15 gm Q6HR PRN Administration Hyperkalemia Zinc Sulfate 220 mg 06/17/20 22:00 07/08/20 09:30 Zinc Sulfate 220 Mg Cap PO 220 mg BID CONNOR Administration Nutrition/Malnutrition Assess - Dietary Evaluation Nutrition/Malnutrition Findings: Nutrition Notes Start: 06/18/20 10:28 Freq: Status: Active Protocol: Document 07/05/20 12:08 AL (Rec: 07/05/20 12:33 AL [id number]) Co-Sign 07/05/20 12:08 NHALL Nutrition Notes Initial or Follow up Reassessment Current Diagnosis Acute Kidney Injury,Sepsis, Respiratory Failure Other Pertinent Diagnosis COVID-19 (+), pneu Current Diet Nepro 1.8 at 40ml/hr Labs/Tests K 6 BUN 80 Cr 4.3 Na 133 Pertinent Medications Reglan Propofol at 10.2046 ml/hr (269 kcal) Colace Kionex Decadron Miralax Height 6 ft Weight 138.4 kg [place] Body Weight (kg) 80.90 BMI 41.3 Weight Status Obese Subjective/Other Information FU for stable TF. Pt tolerating TF at 40 ml/hr ( goal rate). Percent of energy/protein needs met: 89%/48% Burn Absent Trauma Absent Current % PO Negligible Minimum of two criteria No physical signs of malnutrition #2 Nutrition Diagnosis Overweight/obesity Diagnosis Progress(for reassessment Continues documentation) #1 Nutrition Diagnosis Inadequate oral intake Diagnosis Progress(for reassessment Continues documentation) Is patient on ventilator? Yes Is Patient Ambulatory and/or Out of Bed No REE-([place]-confined to bed) 2670.696 Kcal/Kg value to use for calculation 14 Approximate Energy Requirements Using 1938 kcal/Kg Calculation Used for Recommendations Kcal/kg Additional Notes Protein needs up to >2 g/kg IBW: 162 g Fluid needs: 1,000 ml + output Nutrition Intervention Change Diet Order: TF Nutrition Support: Nepro 1.8 at 40ml/hr. Flush 70 ml q4hr for hyponatremia Flush 170ml q4h once resolved If proning regimen: Prone (12 hr): 20 ml/hr. Flush 85 ml q4h. Supine: 60 ml/hr Flush 255 ml q4h. [ End ] Kcal 1,728 Protein (gm) 78 Fluid (mL) 698 Goal #1 Tolerate TF at goal rate Goal #2 Meet energy and protein needs as best as possible. Anticipated Discharge Needs: Unable to determine at the time. Follow-Up By: 07/12/20 Additional Comments F/U for TF tolerance and labs, wt, and vent status
--- NOTE | 2020-07-08 13:18 | Progress Note ---
Assessment and Plan Acute hypoxemic respiratory failure due to COVID-19 Severe COVID infection Severe Sepsis with shock Bilateral pneumonia Acute kidney injury (GIRISH) with acute tubular necrosis (ATN) Elevated liver enzymes Obesity - a/p HD/UF; agree with back to back UF sessions for likely increasing pulmonary edema as against pneumopnia - nephrology input - spoke with his and updated her on his progress - continue care as below otherwise; - therapeutic anticoagulation remains on hold - continue HD/UF per nephrology prescription for toxin and volume clearance - keep peep at 14 - complete dexamethasone dosing re: worsening acidosis & continued positive status while trending serum inflamatory markers - continue daily SAT's & SBT's as tolerated - continue tube feeds and advance to goal rate as tolerated - continue HD/UF per nephrology team for toxin and volume clearance - continue bowel regimen - rate control per cardiology team for afib RVR - Continue to wean supplemental oxygen for O2 sats >92% - Monitor blood pressure closely while optimizing sedation,wean vasopressor support for MAP > 65 mmHg - Critical care prone positioning - VAP bundle addressed, aspiration precautions HOB >40 - continue lung protective strategies, permissive hypercapnic acceptable. - continue bronchodilators with pulmonary hygiene per RT - wean per pulmonary driven protocols otherwise - accuchecks with glycemic control per SSI (While critically ill target blood glucose of 140-180 mg/dL; avoid hypoglycemia) - sedation prn for target RASS -1 to -2 - continue enteral nutritional support at goal rate as tolerated - s/p antibiotics per ID recommendations - Monitor liver function test ,avoid hepatotoxic agents - azotemia per nephrology rec's - Avoid nephrotoxins, renally dose all medications, conservative fluid management - continue to avoid benzodiazepines, reduce the possibility of delirium, - prn analgesia per CPOT score - Maintenance of sleep-wake cycle, avoid delirium - Stress ulcer prophylaxis, Famotidine - PT/OT/ROM exercises - Mobility protocols for pressure ulcer prevention - CXR, ABG in am - CBC, CMP in am - Supportive transfusions to keep HgB >7g/dL - Monitor hemodynamics closely - continue other care per attending / other consultants COVID SPECIFIC INTERVENTIONS - continue steroids: Dexamethasone - continue with Remdesivir - monitor inflammatory markers - ferritin, D-dimer, CRP, LDH per facility protocol - continue anticoagulation per System Protocol based on d-dimer - continue contact and airborne isolation CONDITION: CRITICAL PROGNOSIS: GUARDED CODE STATUS: FULL CODE The high probability of a clinically significant, sudden or life-threatening deterioration of the [respiratory, cardiovascular, hematologic & neurologic] system(s) required my full and direct attention, intervention and personal management. The aggregate critical care time was [40] minutes without overlap. Time includes spent on; [x] Data Review and interpretation [x] Patient assessment and monitoring of vital signs [x] Documentation [x] Medication orders and management He was evaluated in the context of the global COVID-19 pandemic, which necessitated consideration that the patient might be at risk for infection with the virus that causes COVID-19. Institutional protocols and algorithms that pertain to the evaluation of patients at risk for COVID-19 are in a state of rapid change based on information released by regulatory bodies including the CDC and federal and state organizations. These policies and algorithms were followed during the patient's care in the ICU Please note that these policies, procedures and recommendations changed on a rapid basis. Subjective Date of service: 07/08/20 Principal diagnosis: ARF; Septic Shock; COVID-19 PNA; Atrial fibrillation; Obesity Interval history: Patient is seen today for: Ac hypoxemic respiratory failure; COVID-19; Severe Sepsis with shock; Zackery. pneumonia; GIRISH; Elevated liver enzymes; Obesity Seen and examined at bedside; 24hour events reviewed; nursing and respiratory care staff consulted; no adverse overnight events reported to me; resting in bed; remains on MVS; AMS is persistent; CXR is consistent with increased volume overload; s/p HD/UF today and 3Kg pulled per RN Objective Vital Signs - 12hr 07/08/20 07/08/20 07/08/20 01:30 01:45 02:00 Temperature Pulse Rate 99 H 98 H 93 H Pulse Rate [ From Monitor] Respiratory 17 16 16 Rate Blood Pressure 88/43 86/47 77/37 O2 Sat by Pulse 96 96 97 Oximetry O2 Sat by Pulse Oximetry [ Anterior Bilateral Throughout] 07/08/20 07/08/20 07/08/20 02:15 02:30 02:45 Temperature Pulse Rate 98 H 95 H 94 H Pulse Rate [ From Monitor] Respiratory 16 19 21 Rate Blood Pressure 72/42 81/45 114/48 O2 Sat by Pulse 86 97 97 Oximetry O2 Sat by Pulse Oximetry [ Anterior Bilateral Throughout] 07/08/20 07/08/20 07/08/20 03:00 03:15 03:21 Temperature 97.9 F Pulse Rate 109 H 101 H Pulse Rate [ From Monitor] Respiratory 19 18 Rate Blood Pressure 106/48 108/48 O2 Sat by Pulse 97 97 Oximetry O2 Sat by Pulse Oximetry [ Anterior Bilateral Throughout] 07/08/20 07/08/20 07/08/20 03:30 03:45 03:53 Temperature Pulse Rate 90 102 H 104 H Pulse Rate [ From Monitor] Respiratory 16 17 Rate Blood Pressure 106/48 111/49 106/48 O2 Sat by Pulse 97 97 97 Oximetry O2 Sat by Pulse Oximetry [ Anterior Bilateral Throughout] 07/08/20 07/08/20 07/08/20 04:00 04:15 04:30 Temperature Pulse Rate 110 H 100 H 102 H Pulse Rate [ 92 H From Monitor] Respiratory 18 15 20 Rate Blood Pressure 112/50 101/48 103/49 O2 Sat by Pulse 96 96 96 Oximetry O2 Sat by Pulse Oximetry [ Anterior Bilateral Throughout] 07/08/20 07/08/20 07/08/20 04:45 05:00 05:15 Temperature Pulse Rate 96 H 102 H 104 H Pulse Rate [ From Monitor] Respiratory 14 13 18 Rate Blood Pressure 110/49 109/46 100/45 O2 Sat by Pulse 96 96 96 Oximetry O2 Sat by Pulse Oximetry [ Anterior Bilateral Throughout] 07/08/20 07/08/20 07/08/20 05:27 05:30 05:45 Temperature Pulse Rate 97 H 111 H 101 H Pulse Rate [ From Monitor] Respiratory 16 15 Rate Blood Pressure 100/45 102/45 99/44 O2 Sat by Pulse 97 97 Oximetry O2 Sat by Pulse Oximetry [ Anterior Bilateral Throughout] 07/08/20 07/08/20 07/08/20 06:00 06:15 06:30 Temperature Pulse Rate 101 H 99 H 114 H Pulse Rate [ From Monitor] Respiratory 17 17 15 Rate Blood Pressure 105/45 102/46 92/41 O2 Sat by Pulse 98 98 98 Oximetry O2 Sat by Pulse Oximetry [ Anterior Bilateral Throughout] 07/08/20 07/08/20 07/08/20 06:45 07:00 07:15 Temperature Pulse Rate 107 H 102 H 105 H Pulse Rate [ From Monitor] Respiratory 16 19 15 Rate Blood Pressure 99/48 101/47 100/49 O2 Sat by Pulse 98 96 96 Oximetry O2 Sat by Pulse Oximetry [ Anterior Bilateral Throughout] 07/08/20 07/08/20 07/08/20 07:30 07:45 08:00 Temperature 98.2 F Pulse Rate 105 H 107 H 120 H Pulse Rate [ 94 H From Monitor] Respiratory 14 15 15 Rate Blood Pressure 108/49 102/52 107/48 O2 Sat by Pulse 97 97 86 Oximetry O2 Sat by Pulse Oximetry [ Anterior Bilateral Throughout] 07/08/20 07/08/20 07/08/20 08:15 08:30 08:40 Temperature 98.9 F Pulse Rate 107 H 94 H 94 H Pulse Rate [ From Monitor] Respiratory 13 18 Rate Blood Pressure 112/48 106/47 106/47 O2 Sat by Pulse 91 96 Oximetry O2 Sat by Pulse 97 Oximetry [ Anterior Bilateral Throughout] 07/08/20 07/08/20 07/08/20 08:45 09:00 09:15 Temperature Pulse Rate 103 H 100 H 112 H Pulse Rate [ From Monitor] Respiratory 15 16 15 Rate Blood Pressure 112/87 121/49 108/56 O2 Sat by Pulse 97 97 97 Oximetry O2 Sat by Pulse Oximetry [ Anterior Bilateral Throughout] 07/08/20 07/08/20 07/08/20 09:30 09:45 10:00 Temperature Pulse Rate 103 H 106 H 106 H Pulse Rate [ From Monitor] Respiratory 16 15 15 Rate Blood Pressure 113/54 118/53 114/55 O2 Sat by Pulse 96 97 Oximetry O2 Sat by Pulse Oximetry [ Anterior Bilateral Throughout] 07/08/20 07/08/20 07/08/20 10:15 10:30 10:45 Temperature Pulse Rate 104 H 111 H 106 H Pulse Rate [ From Monitor] Respiratory 21 14 16 Rate Blood Pressure 110/49 113/48 105/47 O2 Sat by Pulse 89 88 98 Oximetry O2 Sat by Pulse Oximetry [ Anterior Bilateral Throughout] 07/08/20 07/08/20 07/08/20 11:00 11:01 11:15 Temperature Pulse Rate 99 H 102 H 111 H Pulse Rate [ From Monitor] Respiratory 14 Rate Blood Pressure 112/55 112/55 103/54 O2 Sat by Pulse 97 Oximetry O2 Sat by Pulse Oximetry [ Anterior Bilateral Throughout] 07/08/20 07/08/20 07/08/20 11:30 11:46 12:00 Temperature 98.3 F Pulse Rate 101 H 105 H 100 H Pulse Rate [ From Monitor] Respiratory Rate Blood Pressure 110/53 117/53 115/50 O2 Sat by Pulse Oximetry O2 Sat by Pulse Oximetry [ Anterior Bilateral Throughout] 07/08/20 07/08/20 12:10 12:14 Temperature 98.3 F Pulse Rate 100 H 100 H Pulse Rate [ From Monitor] Respiratory 19 Rate Blood Pressure 112/55 112/55 O2 Sat by Pulse Oximetry O2 Sat by Pulse 97 Oximetry [ Anterior Bilateral Throughout] Constitutional: appears uncomfortable, other (morbidly obese, atraumatic, normocephalic, mild resp distress, orally intuabted) Eyes: non-icteric ENT: oropharynx moist, other (ETT 24 cm TROY + blood crusted lips) Neck: supple, no lymphadenopathy, other (Large , short neck) Effort: mildly labored Ascultation: Bilateral: diminished breath sounds, rhonchi Percussion: Bilateral: not dull Cardiovascular: irregular rhythm, other (S1,S2) Gastrointestinal: normoactive bowel sounds, non-distended (protuberant), other (OG Tube) Integumentary: rash, other (Femoral CVC, Newell catheter) Extremities: no edema, pink and warm, pulses normal, no ischemia or petechiae, edema (trace to 1+) Neurologic: non-focal exam (grossly), pupils equal and round, other (unable to assess, sedated) Psychiatric: other (unable to assess, sedated) CBC and BMP: 07/08/20 04:00 07/08/20 04:00 ABG, PT/INR, D-dimer: ABG ABG pH 7.220 (7.320-7.450) L 07/08/20 04:09 POC ABG pCO2 60.5 mmHg (32.0-48.0) H 07/08/20 04:09 ABG pCO2 56.4 mm Hg 07/05/20 04:30 POC ABG pO2 107.9 mmHg (83-108) 07/08/20 04:09 ABG pO2 151.9 mm Hg (80.0-90.0) H 07/05/20 04:30 POC ABG HCO3 24.2 07/08/20 04:09 ABG O2 Saturation 98.7 % (95.0-99.0) 07/05/20 04:30 PT/INR, D-dimer PT 17.4 Sec. (12.2-14.9) H 06/26/20 05:47 INR 1.44 (0.87-1.13) H 06/26/20 05:47 D-Dimer 6608.00 ng/mlDDU (0-234) H 07/03/20 14:50 Abnormal lab findings: Abnormal Labs 06/17/20 06/17/20 06/17/20 12:33 12:33 12:33 WBC 19.5 H RBC 5.18 H Hgb 15.5 H Hct MCHC RDW Lymph % (Auto) 3.8 L Lymph # (Auto) 0.7 L [place] # (Auto) Seg Neutrophils % Seg Neuts % (Manual) 99.0 H Lymphocytes % (Manual) 1.0 L Nucleated RBC % Seg Neutrophils # 18.2 H Seg Neutrophils # Man 19.3 H Lymphocytes # (Manual) 0.2 L Monocytes # (Manual) PT 16.5 H INR 1.33 H APTT D-Dimer 1025.04 H Heparin Anti-Xa Level ABG pH POC ABG pCO2 POC ABG pO2 ABG pO2 ABG HCO3 ABG Hemoglobin ABG Oxyhemoglobin ABG Sodium ABG Potassium ABG Chloride ABG Glucose Carboxyhemoglobin Sodium 130 L Potassium 3.4 L Chloride 95.0 L Carbon Dioxide BUN 21 H Creatinine Glucose 137 H POC Glucose Lactic Acid Calcium 7.9 L Phosphorus Magnesium Ferritin Direct Bilirubin AST 84 H ALT 67 H Lactate Dehydrogenase 437 H Total Creatine Kinase 310 H C-Reactive Protein 27.90 H Total Protein Albumin 2.9 L Triglycerides Arterial Blood Glucose Arterial Blood Ionized Calcium Urine Creatinine Urine Chloride Vancomycin Trough Coronavirus (PCR) Crossmatch 06/17/20 06/17/20 06/17/20 12:33 12:33 14:48 WBC RBC Hgb Hct MCHC RDW Lymph % (Auto) Lymph # (Auto) [place] # (Auto) Seg Neutrophils % Seg Neuts % (Manual) Lymphocytes % (Manual) Nucleated RBC % Seg Neutrophils # Seg Neutrophils # Man Lymphocytes # (Manual) Monocytes # (Manual) PT INR APTT D-Dimer Heparin Anti-Xa Level ABG pH POC ABG pCO2 POC ABG pO2 ABG pO2 ABG HCO3 ABG Hemoglobin ABG Oxyhemoglobin ABG Sodium ABG Potassium ABG Chloride ABG Glucose Carboxyhemoglobin Sodium Potassium Chloride Carbon Dioxide BUN Creatinine Glucose POC Glucose Lactic Acid 2.50 H* 2.20 H* Calcium Phosphorus Magnesium Ferritin 2297.0 H Direct Bilirubin AST ALT Lactate Dehydrogenase Total Creatine Kinase C-Reactive Protein Total Protein Albumin Triglycerides Arterial Blood Glucose Arterial Blood Ionized Calcium Urine Creatinine Urine Chloride Vancomycin Trough Coronavirus (PCR) Crossmatch 06/17/20 06/17/20 06/17/20 14:48 14:48 14:48 WBC RBC Hgb Hct MCHC RDW Lymph % (Auto) Lymph # (Auto) [place] # (Auto) Seg Neutrophils % Seg Neuts % (Manual) Lymphocytes % (Manual) Nucleated RBC % Seg Neutrophils # Seg Neutrophils # Man Lymphocytes # (Manual) Monocytes # (Manual) PT INR APTT D-Dimer 939.89 H Heparin Anti-Xa Level ABG pH POC ABG pCO2 POC ABG pO2 ABG pO2 ABG HCO3 ABG Hemoglobin ABG Oxyhemoglobin ABG Sodium ABG Potassium ABG Chloride ABG Glucose Carboxyhemoglobin Sodium Potassium Chloride Carbon Dioxide BUN Creatinine Glucose 141 H POC Glucose Lactic Acid Calcium Phosphorus Magnesium Ferritin > 2000.0 H Direct Bilirubin AST ALT Lactate Dehydrogenase 503 H Total Creatine Kinase C-Reactive Protein 24.70 H Total Protein Albumin Triglycerides Arterial Blood Glucose Arterial Blood Ionized Calcium Urine Creatinine Urine Chloride Vancomycin Trough Coronavirus (PCR) Crossmatch 06/17/20 06/17/20 06/17/20 16:54 19:39 23:43 WBC RBC Hgb Hct MCHC RDW Lymph % (Auto) Lymph # (Auto) [place] # (Auto) Seg Neutrophils % Seg Neuts % (Manual) Lymphocytes % (Manual) Nucleated RBC % Seg Neutrophils # Seg Neutrophils # Man Lymphocytes # (Manual) Monocytes # (Manual) PT INR APTT D-Dimer Heparin Anti-Xa Level ABG pH 7.571 H POC ABG pCO2 24.3 L POC ABG pO2 41.6 L ABG pO2 ABG HCO3 ABG Hemoglobin ABG Oxyhemoglobin 84.0 L ABG Sodium 131.0 L ABG Potassium ABG Chloride ABG Glucose 163 H Carboxyhemoglobin Sodium Potassium Chloride Carbon Dioxide BUN Creatinine Glucose POC Glucose 185 H Lactic Acid 2.10 H* Calcium Phosphorus Magnesium Ferritin Direct Bilirubin AST ALT Lactate Dehydrogenase Total Creatine Kinase C-Reactive Protein Total Protein Albumin Triglycerides Arterial Blood Glucose 163 H Arterial Blood Ionized Calcium 4.4 L Urine Creatinine Urine Chloride Vancomycin Trough Coronavirus (PCR) Crossmatch 06/18/20 06/18/20 06/18/20 00:17 00:23 03:55 WBC RBC Hgb Hct MCHC RDW Lymph % (Auto) Lymph # (Auto) [place] # (Auto) Seg Neutrophils % Seg Neuts % (Manual) Lymphocytes % (Manual) Nucleated RBC % Seg Neutrophils # Seg Neutrophils # Man Lymphocytes # (Manual) Monocytes # (Manual) PT INR APTT D-Dimer Heparin Anti-Xa Level ABG pH POC ABG pCO2 POC ABG pO2 56.5 L 48.3 L ABG pO2 ABG HCO3 ABG Hemoglobin ABG Oxyhemoglobin 86.3 L 81.7 L ABG Sodium 132.9 L 131.0 L ABG Potassium ABG Chloride ABG Glucose 189 H 161 H Carboxyhemoglobin 0.4 L Sodium Potassium Chloride Carbon Dioxide BUN Creatinine Glucose POC Glucose Lactic Acid 3.80 H* Calcium Phosphorus Magnesium Ferritin Direct Bilirubin AST ALT Lactate Dehydrogenase Total Creatine Kinase C-Reactive Protein Total Protein Albumin Triglycerides Arterial Blood Glucose 189 H 161 H Arterial Blood Ionized Calcium 4.3 L 4.2 L Urine Creatinine Urine Chloride Vancomycin Trough Coronavirus (PCR) Crossmatch 06/18/20 06/18/20 06/18/20 05:39 05:39 05:39 WBC 26.2 H RBC Hgb Hct MCHC RDW Lymph % (Auto) Lymph # (Auto) [place] # (Auto) Seg Neutrophils % Seg Neuts % (Manual) 90.0 H Lymphocytes % (Manual) 5.0 L Nucleated RBC % Seg Neutrophils # Seg Neutrophils # Man 23.6 H Lymphocytes # (Manual) Monocytes # (Manual) 1.3 H PT INR APTT D-Dimer Heparin Anti-Xa Level ABG pH POC ABG pCO2 POC ABG pO2 ABG pO2 ABG HCO3 ABG Hemoglobin ABG Oxyhemoglobin ABG Sodium ABG Potassium ABG Chloride ABG Glucose Carboxyhemoglobin Sodium 135 L Potassium Chloride 97.5 L Carbon Dioxide 21 L BUN 39 H Creatinine 1.7 H D Glucose 168 H POC Glucose Lactic Acid 3.40 H* Calcium 7.2 L Phosphorus Magnesium Ferritin Direct Bilirubin AST ALT Lactate Dehydrogenase Total Creatine Kinase C-Reactive Protein Total Protein Albumin Triglycerides Arterial Blood Glucose Arterial Blood Ionized Calcium Urine Creatinine Urine Chloride Vancomycin Trough Coronavirus (PCR) Crossmatch 06/18/20 06/18/20 06/18/20 07:24 09:00 10:10 WBC RBC Hgb Hct MCHC RDW Lymph % (Auto) Lymph # (Auto) [place] # (Auto) Seg Neutrophils % Seg Neuts % (Manual) Lymphocytes % (Manual) Nucleated RBC % Seg Neutrophils # Seg Neutrophils # Man Lymphocytes # (Manual) Monocytes # (Manual) PT INR APTT D-Dimer Heparin Anti-Xa Level ABG pH POC ABG pCO2 POC ABG pO2 ABG pO2 ABG HCO3 ABG Hemoglobin ABG Oxyhemoglobin ABG Sodium ABG Potassium ABG Chloride ABG Glucose Carboxyhemoglobin Sodium Potassium Chloride Carbon Dioxide BUN Creatinine Glucose POC Glucose Lactic Acid 2.90 H* 3.20 H* Calcium Phosphorus Magnesium Ferritin Direct Bilirubin AST ALT Lactate Dehydrogenase Total Creatine Kinase C-Reactive Protein Total Protein Albumin Triglycerides Arterial Blood Glucose Arterial Blood Ionized Calcium Urine Creatinine Urine Chloride Vancomycin Trough Coronavirus (PCR) Positive A Crossmatch 06/18/20 06/18/20 06/18/20 11:58 14:43 15:00 WBC RBC Hgb Hct MCHC RDW Lymph % (Auto) Lymph # (Auto) [place] # (Auto) Seg Neutrophils % Seg Neuts % (Manual) Lymphocytes % (Manual) Nucleated RBC % Seg Neutrophils # Seg Neutrophils # Man Lymphocytes # (Manual) Monocytes # (Manual) PT INR APTT D-Dimer Heparin Anti-Xa Level ABG pH 7.303 L POC ABG pCO2 POC ABG pO2 82.3 L ABG pO2 ABG HCO3 ABG Hemoglobin ABG Oxyhemoglobin ABG Sodium 135.3 L ABG Potassium ABG Chloride ABG Glucose 215 H Carboxyhemoglobin 0.3 L Sodium Potassium Chloride Carbon Dioxide BUN Creatinine Glucose POC Glucose 209 H Lactic Acid Calcium Phosphorus Magnesium Ferritin Direct Bilirubin AST ALT Lactate Dehydrogenase Total Creatine Kinase C-Reactive Protein Total Protein Albumin Triglycerides Arterial Blood Glucose 215 H Arterial Blood Ionized Calcium 4.2 L Urine Creatinine 192.4 H Urine Chloride 31.1 L Vancomycin Trough Coronavirus (PCR) Crossmatch 06/18/20 06/18/20 06/18/20 17:16 19:44 20:33 WBC RBC Hgb Hct MCHC RDW Lymph % (Auto) Lymph # (Auto) [place] # (Auto) Seg Neutrophils % Seg Neuts % (Manual) Lymphocytes % (Manual) Nucleated RBC % Seg Neutrophils # Seg Neutrophils # Man Lymphocytes # (Manual) Monocytes # (Manual) PT INR APTT D-Dimer Heparin Anti-Xa Level ABG pH POC ABG pCO2 POC ABG pO2 ABG pO2 ABG HCO3 ABG Hemoglobin ABG Oxyhemoglobin ABG Sodium ABG Potassium ABG Chloride ABG Glucose Carboxyhemoglobin Sodium Potassium Chloride Carbon Dioxide BUN Creatinine Glucose POC Glucose 182 H Lactic Acid 3.00 H* Calcium Phosphorus Magnesium 2.70 H Ferritin Direct Bilirubin AST ALT Lactate Dehydrogenase Total Creatine Kinase C-Reactive Protein Total Protein Albumin Triglycerides Arterial Blood Glucose Arterial Blood Ionized Calcium Urine Creatinine Urine Chloride Vancomycin Trough Coronavirus (PCR) Crossmatch 06/18/20 06/19/20 06/19/20 23:43 04:00 04:00 WBC 31.6 H RBC Hgb Hct MCHC RDW Lymph % (Auto) Lymph # (Auto) [place] # (Auto) Seg Neutrophils % Seg Neuts % (Manual) 98.0 H Lymphocytes % (Manual) 0.5 L Nucleated RBC % Seg Neutrophils # Seg Neutrophils # Man 31.0 H Lymphocytes # (Manual) 0.2 L Monocytes # (Manual) PT INR APTT D-Dimer Heparin Anti-Xa Level ABG pH POC ABG pCO2 POC ABG pO2 ABG pO2 ABG HCO3 ABG Hemoglobin ABG Oxyhemoglobin ABG Sodium ABG Potassium ABG Chloride ABG Glucose Carboxyhemoglobin Sodium Potassium Chloride Carbon Dioxide BUN 56 H Creatinine 1.6 H Glucose 176 H POC Glucose 149 H Lactic Acid Calcium 7.0 L Phosphorus Magnesium Ferritin Direct Bilirubin AST 244 H ALT 159 H Lactate Dehydrogenase Total Creatine Kinase C-Reactive Protein Total Protein 4.9 L D Albumin 2.5 L Triglycerides Arterial Blood Glucose Arterial Blood Ionized Calcium Urine Creatinine Urine Chloride Vancomycin Trough Coronavirus (PCR) Crossmatch 06/19/20 06/19/20 06/19/20 04:00 05:44 11:42 WBC RBC Hgb Hct MCHC RDW Lymph % (Auto) Lymph # (Auto) [place] # (Auto) Seg Neutrophils % Seg Neuts % (Manual) Lymphocytes % (Manual) Nucleated RBC % Seg Neutrophils # Seg Neutrophils # Man Lymphocytes # (Manual) Monocytes # (Manual) PT INR APTT D-Dimer Heparin Anti-Xa Level ABG pH 7.265 L POC ABG pCO2 51.8 H POC ABG pO2 65.1 L ABG pO2 ABG HCO3 ABG Hemoglobin ABG Oxyhemoglobin ABG Sodium ABG Potassium ABG Chloride ABG Glucose 184 H Carboxyhemoglobin Sodium Potassium Chloride Carbon Dioxide BUN Creatinine Glucose POC Glucose 156 H 191 H Lactic Acid Calcium Phosphorus Magnesium Ferritin Direct Bilirubin AST ALT Lactate Dehydrogenase Total Creatine Kinase C-Reactive Protein Total Protein Albumin Triglycerides Arterial Blood Glucose 184 H Arterial Blood Ionized Calcium 4.3 L Urine Creatinine Urine Chloride Vancomycin Trough Coronavirus (PCR) Crossmatch 06/19/20 06/19/20 06/19/20 12:30 17:16 18:36 WBC RBC Hgb Hct MCHC RDW Lymph % (Auto) Lymph # (Auto) [place] # (Auto) Seg Neutrophils % Seg Neuts % (Manual) Lymphocytes % (Manual) Nucleated RBC % Seg Neutrophils # Seg Neutrophils # Man Lymphocytes # (Manual) Monocytes # (Manual) PT 16.4 H INR 1.32 H APTT D-Dimer Heparin Anti-Xa Level ABG pH 7.088 L POC ABG pCO2 78.1 H POC ABG pO2 208.3 H ABG pO2 ABG HCO3 ABG Hemoglobin ABG Oxyhemoglobin 98.3 H ABG Sodium ABG Potassium 5.0 H ABG Chloride ABG Glucose 182 H Carboxyhemoglobin 0.4 L Sodium Potassium Chloride Carbon Dioxide BUN Creatinine Glucose POC Glucose 154 H Lactic Acid Calcium Phosphorus Magnesium Ferritin Direct Bilirubin AST ALT Lactate Dehydrogenase Total Creatine Kinase C-Reactive Protein Total Protein Albumin Triglycerides Arterial Blood Glucose 182 H Arterial Blood Ionized Calcium 4.3 L Urine Creatinine Urine Chloride Vancomycin Trough Coronavirus (PCR) Crossmatch 06/19/20 06/20/20 06/20/20 23:32 03:00 05:19 WBC RBC Hgb Hct MCHC RDW Lymph % (Auto) Lymph # (Auto) [place] # (Auto) Seg Neutrophils % Seg Neuts % (Manual) Lymphocytes % (Manual) Nucleated RBC % Seg Neutrophils # Seg Neutrophils # Man Lymphocytes # (Manual) Monocytes # (Manual) PT INR APTT D-Dimer Heparin Anti-Xa Level 0.77 H ABG pH POC ABG pCO2 POC ABG pO2 ABG pO2 ABG HCO3 ABG Hemoglobin ABG Oxyhemoglobin ABG Sodium ABG Potassium ABG Chloride ABG Glucose Carboxyhemoglobin Sodium Potassium Chloride Carbon Dioxide BUN Creatinine Glucose POC Glucose 201 H 190 H Lactic Acid Calcium Phosphorus Magnesium Ferritin Direct Bilirubin AST ALT Lactate Dehydrogenase Total Creatine Kinase C-Reactive Protein Total Protein Albumin Triglycerides Arterial Blood Glucose Arterial Blood Ionized Calcium Urine Creatinine Urine Chloride Vancomycin Trough Coronavirus (PCR) Crossmatch 06/20/20 06/20/20 06/20/20 08:25 08:25 11:36 WBC RBC Hgb Hct MCHC RDW Lymph % (Auto) Lymph # (Auto) [place] # (Auto) Seg Neutrophils % Seg Neuts % (Manual) Lymphocytes % (Manual) Nucleated RBC % Seg Neutrophils # Seg Neutrophils # Man Lymphocytes # (Manual) Monocytes # (Manual) PT INR APTT D-Dimer Heparin Anti-Xa Level ABG pH POC ABG pCO2 POC ABG pO2 ABG pO2 ABG HCO3 ABG Hemoglobin ABG Oxyhemoglobin ABG Sodium ABG Potassium ABG Chloride ABG Glucose Carboxyhemoglobin Sodium 135 L Potassium 5.4 H Chloride 109.2 H Carbon Dioxide 19 L BUN 68 H Creatinine 2.5 H D Glucose 201 H POC Glucose 184 H Lactic Acid Calcium 5.5 L* D Phosphorus Magnesium Ferritin Direct Bilirubin AST 123 H ALT 86 H Lactate Dehydrogenase Total Creatine Kinase C-Reactive Protein Total Protein 4.6 L Albumin 1.5 L Triglycerides Arterial Blood Glucose Arterial Blood Ionized Calcium Urine Creatinine Urine Chloride Vancomycin Trough 22.7 H Coronavirus (PCR) Crossmatch 06/20/20 06/20/20 06/20/20 11:40 17:28 20:00 WBC RBC Hgb Hct MCHC RDW Lymph % (Auto) Lymph # (Auto) [place] # (Auto) Seg Neutrophils % Seg Neuts % (Manual) Lymphocytes % (Manual) Nucleated RBC % Seg Neutrophils # Seg Neutrophils # Man Lymphocytes # (Manual) Monocytes # (Manual) PT INR APTT D-Dimer Heparin Anti-Xa Level 0.89 H ABG pH 7.099 L POC ABG pCO2 61.1 H POC ABG pO2 ABG pO2 ABG HCO3 ABG Hemoglobin ABG Oxyhemoglobin ABG Sodium ABG Potassium 5.0 H ABG Chloride 111.0 H ABG Glucose 200 H Carboxyhemoglobin 0.4 L Sodium Potassium Chloride Carbon Dioxide BUN Creatinine Glucose POC Glucose 165 H Lactic Acid Calcium Phosphorus Magnesium Ferritin Direct Bilirubin AST ALT Lactate Dehydrogenase Total Creatine Kinase C-Reactive Protein Total Protein Albumin Triglycerides Arterial Blood Glucose 200 H Arterial Blood Ionized Calcium 4.2 L Urine Creatinine Urine Chloride Vancomycin Trough Coronavirus (PCR) Crossmatch 06/20/20 06/21/20 06/21/20 23:29 05:00 05:20 WBC RBC Hgb Hct MCHC RDW Lymph % (Auto) Lymph # (Auto) [place] # (Auto) Seg Neutrophils % Seg Neuts % (Manual) Lymphocytes % (Manual) Nucleated RBC % Seg Neutrophils # Seg Neutrophils # Man Lymphocytes # (Manual) Monocytes # (Manual) PT INR APTT D-Dimer Heparin Anti-Xa Level ABG pH POC ABG pCO2 POC ABG pO2 ABG pO2 ABG HCO3 ABG Hemoglobin ABG Oxyhemoglobin ABG Sodium ABG Potassium ABG Chloride ABG Glucose Carboxyhemoglobin Sodium Potassium Chloride 112.0 H Carbon Dioxide 20 L BUN 92 H Creatinine 3.9 H D Glucose 214 H POC Glucose 145 H 191 H Lactic Acid Calcium 6.5 L D Phosphorus Magnesium Ferritin Direct Bilirubin AST 98 H ALT 84 H Lactate Dehydrogenase Total Creatine Kinase C-Reactive Protein Total Protein 4.6 L Albumin 2.1 L Triglycerides 180 H Arterial Blood Glucose Arterial Blood Ionized Calcium Urine Creatinine Urine Chloride Vancomycin Trough Coronavirus (PCR) Crossmatch 06/21/20 06/21/20 06/21/20 08:56 11:12 12:43 WBC RBC Hgb Hct MCHC RDW Lymph % (Auto) Lymph # (Auto) [place] # (Auto) Seg Neutrophils % Seg Neuts % (Manual) Lymphocytes % (Manual) Nucleated RBC % Seg Neutrophils # Seg Neutrophils # Man Lymphocytes # (Manual) Monocytes # (Manual) PT INR APTT D-Dimer Heparin Anti-Xa Level 0.28 L ABG pH 7.184 L POC ABG pCO2 48.3 H POC ABG pO2 172.1 H ABG pO2 ABG HCO3 ABG Hemoglobin ABG Oxyhemoglobin 98.7 H ABG Sodium ABG Potassium 4.9 H ABG Chloride 112.0 H ABG Glucose 196 H Carboxyhemoglobin 0.2 L Sodium Potassium Chloride Carbon Dioxide BUN Creatinine Glucose POC Glucose 177 H Lactic Acid Calcium Phosphorus Magnesium Ferritin Direct Bilirubin AST ALT Lactate Dehydrogenase Total Creatine Kinase C-Reactive Protein Total Protein Albumin Triglycerides Arterial Blood Glucose 196 H Arterial Blood Ionized Calcium 4.1 L Urine Creatinine Urine Chloride Vancomycin Trough Coronavirus (PCR) Crossmatch 06/21/20 06/21/20 06/22/20 16:31 Unknown 00:12 WBC RBC Hgb Hct MCHC RDW Lymph % (Auto) Lymph # (Auto) [place] # (Auto) Seg Neutrophils % Seg Neuts % (Manual) Lymphocytes % (Manual) Nucleated RBC % Seg Neutrophils # Seg Neutrophils # Man Lymphocytes # (Manual) Monocytes # (Manual) PT INR APTT D-Dimer Heparin Anti-Xa Level 0.78 H ABG pH POC ABG pCO2 POC ABG pO2 ABG pO2 ABG HCO3 ABG Hemoglobin ABG Oxyhemoglobin ABG Sodium ABG Potassium ABG Chloride ABG Glucose Carboxyhemoglobin Sodium Potassium Chloride Carbon Dioxide BUN Creatinine Glucose POC Glucose 150 H 173 H Lactic Acid Calcium Phosphorus Magnesium Ferritin Direct Bilirubin AST ALT Lactate Dehydrogenase Total Creatine Kinase C-Reactive Protein Total Protein Albumin Triglycerides Arterial Blood Glucose Arterial Blood Ionized Calcium Urine Creatinine Urine Chloride Vancomycin Trough Coronavirus (PCR) Crossmatch 06/22/20 06/22/20 06/22/20 04:00 05:04 05:30 WBC 33.9 H RBC Hgb 11.7 L Hct 35.2 L MCHC RDW 15.8 H Lymph % (Auto) Lymph # (Auto) [place] # (Auto) Seg Neutrophils % Seg Neuts % (Manual) 93.0 H Lymphocytes % (Manual) 5.0 L Nucleated RBC % Seg Neutrophils # Seg Neutrophils # Man 31.5 H Lymphocytes # (Manual) Monocytes # (Manual) PT INR APTT D-Dimer Heparin Anti-Xa Level ABG pH 7.169 L POC ABG pCO2 POC ABG pO2 ABG pO2 ABG HCO3 ABG Hemoglobin ABG Oxyhemoglobin ABG Sodium ABG Potassium 5.1 H ABG Chloride 112.0 H ABG Glucose 186 H Carboxyhemoglobin 0.3 L Sodium Potassium Chloride Carbon Dioxide BUN Creatinine Glucose POC Glucose 161 H Lactic Acid Calcium Phosphorus Magnesium Ferritin Direct Bilirubin AST ALT Lactate Dehydrogenase Total Creatine Kinase C-Reactive Protein Total Protein Albumin Triglycerides Arterial Blood Glucose 186 H Arterial Blood Ionized Calcium 4.1 L Urine Creatinine Urine Chloride Vancomycin Trough Coronavirus (PCR) Crossmatch 06/22/20 06/22/20 06/22/20 05:30 11:39 13:27 WBC RBC Hgb Hct MCHC RDW Lymph % (Auto) Lymph # (Auto) [place] # (Auto) Seg Neutrophils % Seg Neuts % (Manual) Lymphocytes % (Manual) Nucleated RBC % Seg Neutrophils # Seg Neutrophils # Man Lymphocytes # (Manual) Monocytes # (Manual) PT INR APTT D-Dimer Heparin Anti-Xa Level ABG pH POC ABG pCO2 POC ABG pO2 ABG pO2 ABG HCO3 ABG Hemoglobin ABG Oxyhemoglobin ABG Sodium ABG Potassium ABG Chloride ABG Glucose Carboxyhemoglobin Sodium Potassium 5.7 H Chloride 111.3 H Carbon Dioxide 18 L BUN 112 H Creatinine 5.0 H Glucose 173 H POC Glucose 172 H 176 H Lactic Acid Calcium 6.7 L Phosphorus Magnesium Ferritin Direct Bilirubin AST ALT Lactate Dehydrogenase Total Creatine Kinase C-Reactive Protein Total Protein Albumin Triglycerides Arterial Blood Glucose Arterial Blood Ionized Calcium Urine Creatinine Urine Chloride Vancomycin Trough Coronavirus (PCR) Crossmatch 06/22/20 06/22/20 06/22/20 14:37 17:00 17:40 WBC RBC Hgb Hct MCHC RDW Lymph % (Auto) Lymph # (Auto) [place] # (Auto) Seg Neutrophils % Seg Neuts % (Manual) Lymphocytes % (Manual) Nucleated RBC % Seg Neutrophils # Seg Neutrophils # Man Lymphocytes # (Manual) Monocytes # (Manual) PT INR APTT D-Dimer Heparin Anti-Xa Level 1.32 H ABG pH POC ABG pCO2 POC ABG pO2 ABG pO2 ABG HCO3 ABG Hemoglobin ABG Oxyhemoglobin ABG Sodium ABG Potassium ABG Chloride ABG Glucose Carboxyhemoglobin Sodium Potassium Chloride Carbon Dioxide BUN Creatinine Glucose POC Glucose 171 H Lactic Acid Calcium Phosphorus Magnesium Ferritin Direct Bilirubin AST ALT Lactate Dehydrogenase Total Creatine Kinase C-Reactive Protein 5.30 H Total Protein Albumin Triglycerides Arterial Blood Glucose Arterial Blood Ionized Calcium Urine Creatinine Urine Chloride Vancomycin Trough Coronavirus (PCR) Crossmatch 06/22/20 06/23/20 06/23/20 23:36 02:13 02:41 WBC RBC Hgb Hct MCHC RDW Lymph % (Auto) Lymph # (Auto) [place] # (Auto) Seg Neutrophils % Seg Neuts % (Manual) Lymphocytes % (Manual) Nucleated RBC % Seg Neutrophils # Seg Neutrophils # Man Lymphocytes # (Manual) Monocytes # (Manual) PT INR APTT D-Dimer Heparin Anti-Xa Level 0.21 L ABG pH 7.318 L POC ABG pCO2 POC ABG pO2 157.5 H ABG pO2 ABG HCO3 ABG Hemoglobin ABG Oxyhemoglobin ABG Sodium 135.6 L ABG Potassium 4.6 H ABG Chloride 110.0 H ABG Glucose 169 H Carboxyhemoglobin Sodium Potassium Chloride Carbon Dioxide BUN Creatinine Glucose POC Glucose 155 H Lactic Acid Calcium Phosphorus Magnesium Ferritin Direct Bilirubin AST ALT Lactate Dehydrogenase Total Creatine Kinase C-Reactive Protein Total Protein Albumin Triglycerides Arterial Blood Glucose 169 H Arterial Blood Ionized Calcium Urine Creatinine Urine Chloride Vancomycin Trough Coronavirus (PCR) Crossmatch 06/23/20 06/23/20 06/23/20 04:00 04:00 05:24 WBC 27.4 H RBC Hgb 11.3 L Hct 33.8 L MCHC RDW Lymph % (Auto) Lymph # (Auto) [place] # (Auto) Seg Neutrophils % Seg Neuts % (Manual) 93.0 H Lymphocytes % (Manual) 1.0 L Nucleated RBC % 1.0 H Seg Neutrophils # Seg Neutrophils # Man 25.5 H Lymphocytes # (Manual) 0.3 L Monocytes # (Manual) 1.1 H PT INR APTT D-Dimer Heparin Anti-Xa Level ABG pH POC ABG pCO2 POC ABG pO2 ABG pO2 ABG HCO3 ABG Hemoglobin ABG Oxyhemoglobin ABG Sodium ABG Potassium ABG Chloride ABG Glucose Carboxyhemoglobin Sodium Potassium Chloride 107.6 H Carbon Dioxide 20 L BUN 100 H Creatinine 4.7 H Glucose 168 H POC Glucose 151 H Lactic Acid Calcium Phosphorus Magnesium Ferritin Direct Bilirubin AST ALT Lactate Dehydrogenase Total Creatine Kinase C-Reactive Protein Total Protein Albumin Triglycerides Arterial Blood Glucose Arterial Blood Ionized Calcium Urine Creatinine Urine Chloride Vancomycin Trough Coronavirus (PCR) Crossmatch 06/23/20 06/23/20 06/23/20 11:30 17:18 23:50 WBC RBC Hgb Hct MCHC RDW Lymph % (Auto) Lymph # (Auto) [place] # (Auto) Seg Neutrophils % Seg Neuts % (Manual) Lymphocytes % (Manual) Nucleated RBC % Seg Neutrophils # Seg Neutrophils # Man Lymphocytes # (Manual) Monocytes # (Manual) PT INR APTT D-Dimer Heparin Anti-Xa Level ABG pH POC ABG pCO2 POC ABG pO2 ABG pO2 ABG HCO3 ABG Hemoglobin ABG Oxyhemoglobin ABG Sodium ABG Potassium ABG Chloride ABG Glucose Carboxyhemoglobin Sodium Potassium Chloride Carbon Dioxide BUN Creatinine Glucose POC Glucose 157 H 156 H 162 H Lactic Acid Calcium Phosphorus Magnesium Ferritin Direct Bilirubin AST ALT Lactate Dehydrogenase Total Creatine Kinase C-Reactive Protein Total Protein Albumin Triglycerides Arterial Blood Glucose Arterial Blood Ionized Calcium Urine Creatinine Urine Chloride Vancomycin Trough Coronavirus (PCR) Crossmatch 06/24/20 06/24/20 06/24/20 04:41 05:57 06:30 WBC 34.3 H RBC Hgb 10.9 L Hct 32.6 L MCHC RDW Lymph % (Auto) 2.0 L Lymph # (Auto) 0.7 L [place] # (Auto) 1.2 H Seg Neutrophils % Seg Neuts % (Manual) 96.0 H Lymphocytes % (Manual) 3.0 L Nucleated RBC % Seg Neutrophils # 32.3 H Seg Neutrophils # Man 32.9 H Lymphocytes # (Manual) 1.0 L Monocytes # (Manual) PT INR APTT D-Dimer Heparin Anti-Xa Level ABG pH POC ABG pCO2 POC ABG pO2 71.1 L ABG pO2 ABG HCO3 ABG Hemoglobin ABG Oxyhemoglobin 92.4 L ABG Sodium 115.6 L ABG Potassium ABG Chloride ABG Glucose 159 H Carboxyhemoglobin Sodium Potassium Chloride Carbon Dioxide BUN Creatinine Glucose POC Glucose 143 H Lactic Acid Calcium Phosphorus Magnesium Ferritin Direct Bilirubin AST ALT Lactate Dehydrogenase Total Creatine Kinase C-Reactive Protein Total Protein Albumin Triglycerides Arterial Blood Glucose 159 H Arterial Blood Ionized Calcium 4.2 L Urine Creatinine Urine Chloride Vancomycin Trough Coronavirus (PCR) Crossmatch 06/24/20 06/24/20 06/24/20 07:03 09:37 11:56 WBC RBC Hgb Hct MCHC RDW Lymph % (Auto) Lymph # (Auto) [place] # (Auto) Seg Neutrophils % Seg Neuts % (Manual) Lymphocytes % (Manual) Nucleated RBC % Seg Neutrophils # Seg Neutrophils # Man Lymphocytes # (Manual) Monocytes # (Manual) PT INR APTT D-Dimer Heparin Anti-Xa Level 0.26 L ABG pH POC ABG pCO2 POC ABG pO2 ABG pO2 ABG HCO3 ABG Hemoglobin ABG Oxyhemoglobin ABG Sodium ABG Potassium ABG Chloride ABG Glucose Carboxyhemoglobin Sodium Potassium 5.1 H Chloride Carbon Dioxide BUN 103 H Creatinine 5.0 H Glucose 163 H POC Glucose 149 H Lactic Acid Calcium 7.6 L Phosphorus Magnesium Ferritin Direct Bilirubin AST ALT Lactate Dehydrogenase Total Creatine Kinase C-Reactive Protein Total Protein Albumin Triglycerides Arterial Blood Glucose Arterial Blood Ionized Calcium Urine Creatinine Urine Chloride Vancomycin Trough Coronavirus (PCR) Crossmatch 06/24/20 06/25/20 06/25/20 18:09 01:05 03:00 WBC RBC Hgb 10.6 L Hct 32.1 L MCHC RDW Lymph % (Auto) Lymph # (Auto) [place] # (Auto) Seg Neutrophils % Seg Neuts % (Manual) Lymphocytes % (Manual) Nucleated RBC % Seg Neutrophils # Seg Neutrophils # Man Lymphocytes # (Manual) Monocytes # (Manual) PT INR APTT D-Dimer Heparin Anti-Xa Level ABG pH POC ABG pCO2 POC ABG pO2 ABG pO2 ABG HCO3 ABG Hemoglobin ABG Oxyhemoglobin ABG Sodium ABG Potassium ABG Chloride ABG Glucose Carboxyhemoglobin Sodium Potassium Chloride Carbon Dioxide BUN Creatinine Glucose POC Glucose 141 H 137 H Lactic Acid Calcium Phosphorus Magnesium Ferritin Direct Bilirubin AST ALT Lactate Dehydrogenase Total Creatine Kinase C-Reactive Protein Total Protein Albumin Triglycerides Arterial Blood Glucose Arterial Blood Ionized Calcium Urine Creatinine Urine Chloride Vancomycin Trough Coronavirus (PCR) Crossmatch 06/25/20 06/25/20 06/25/20 03:48 05:17 12:08 WBC RBC Hgb Hct MCHC RDW Lymph % (Auto) Lymph # (Auto) [place] # (Auto) Seg Neutrophils % Seg Neuts % (Manual) Lymphocytes % (Manual) Nucleated RBC % Seg Neutrophils # Seg Neutrophils # Man Lymphocytes # (Manual) Monocytes # (Manual) PT INR APTT D-Dimer Heparin Anti-Xa Level ABG pH POC ABG pCO2 29.4 L POC ABG pO2 67.1 L ABG pO2 ABG HCO3 ABG Hemoglobin 11.5 L ABG Oxyhemoglobin ABG Sodium 124.1 L ABG Potassium 4.6 H ABG Chloride ABG Glucose 159 H Carboxyhemoglobin Sodium Potassium Chloride Carbon Dioxide BUN Creatinine Glucose POC Glucose 149 H 150 H Lactic Acid Calcium Phosphorus Magnesium Ferritin Direct Bilirubin AST ALT Lactate Dehydrogenase Total Creatine Kinase C-Reactive Protein Total Protein Albumin Triglycerides Arterial Blood Glucose 159 H Arterial Blood Ionized Calcium 4.2 L Urine Creatinine Urine Chloride Vancomycin Trough Coronavirus (PCR) Crossmatch 06/25/20 06/25/20 06/25/20 16:27 16:35 17:27 WBC RBC Hgb Hct MCHC RDW Lymph % (Auto) Lymph # (Auto) [place] # (Auto) Seg Neutrophils % Seg Neuts % (Manual) Lymphocytes % (Manual) Nucleated RBC % Seg Neutrophils # Seg Neutrophils # Man Lymphocytes # (Manual) Monocytes # (Manual) PT INR APTT D-Dimer Heparin Anti-Xa Level < 0.10 L ABG pH POC ABG pCO2 POC ABG pO2 ABG pO2 ABG HCO3 ABG Hemoglobin ABG Oxyhemoglobin ABG Sodium ABG Potassium ABG Chloride ABG Glucose Carboxyhemoglobin Sodium Potassium Chloride Carbon Dioxide BUN Creatinine Glucose POC Glucose 143 H 156 H Lactic Acid Calcium Phosphorus Magnesium Ferritin Direct Bilirubin AST ALT Lactate Dehydrogenase Total Creatine Kinase C-Reactive Protein Total Protein Albumin Triglycerides Arterial Blood Glucose Arterial Blood Ionized Calcium Urine Creatinine Urine Chloride Vancomycin Trough Coronavirus (PCR) Crossmatch 06/25/20 06/25/20 06/25/20 20:00 20:55 23:10 WBC 32.7 H RBC 3.06 L Hgb 9.0 L 9.5 L Hct 26.7 L 28.6 L MCHC RDW Lymph % (Auto) Lymph # (Auto) [place] # (Auto) Seg Neutrophils % Seg Neuts % (Manual) Lymphocytes % (Manual) 2.0 L Nucleated RBC % Seg Neutrophils # Seg Neutrophils # Man 30.7 H Lymphocytes # (Manual) 0.7 L Monocytes # (Manual) 1.3 H PT 17.7 H INR 1.47 H APTT 65.8 H* D-Dimer Heparin Anti-Xa Level ABG pH POC ABG pCO2 POC ABG pO2 ABG pO2 ABG HCO3 ABG Hemoglobin ABG Oxyhemoglobin ABG Sodium ABG Potassium ABG Chloride ABG Glucose Carboxyhemoglobin Sodium Potassium Chloride Carbon Dioxide BUN Creatinine Glucose POC Glucose Lactic Acid Calcium Phosphorus Magnesium Ferritin Direct Bilirubin AST ALT Lactate Dehydrogenase Total Creatine Kinase C-Reactive Protein Total Protein Albumin Triglycerides Arterial Blood Glucose Arterial Blood Ionized Calcium Urine Creatinine Urine Chloride Vancomycin Trough Coronavirus (PCR) Crossmatch 06/25/20 06/26/20 06/26/20 23:14 01:30 03:25 WBC RBC Hgb Hct MCHC RDW Lymph % (Auto) Lymph # (Auto) [place] # (Auto) Seg Neutrophils % Seg Neuts % (Manual) Lymphocytes % (Manual) Nucleated RBC % Seg Neutrophils # Seg Neutrophils # Man Lymphocytes # (Manual) Monocytes # (Manual) PT INR APTT D-Dimer Heparin Anti-Xa Level < 0.10 L ABG pH POC ABG pCO2 POC ABG pO2 ABG pO2 ABG HCO3 ABG Hemoglobin 11.8 L ABG Oxyhemoglobin ABG Sodium 127.1 L ABG Potassium 5.4 H ABG Chloride ABG Glucose 155 H Carboxyhemoglobin 0.3 L Sodium Potassium Chloride Carbon Dioxide BUN Creatinine Glucose POC Glucose 148 H Lactic Acid Calcium Phosphorus Magnesium Ferritin Direct Bilirubin AST ALT Lactate Dehydrogenase Total Creatine Kinase C-Reactive Protein Total Protein Albumin Triglycerides Arterial Blood Glucose 155 H Arterial Blood Ionized Calcium 4.2 L Urine Creatinine Urine Chloride Vancomycin Trough Coronavirus (PCR) Crossmatch 06/26/20 06/26/20 06/26/20 03:59 05:14 05:47 WBC 36.5 H RBC 3.26 L Hgb 9.7 L Hct 28.2 L MCHC RDW Lymph % (Auto) Lymph # (Auto) [place] # (Auto) Seg Neutrophils % Seg Neuts % (Manual) 92.0 H Lymphocytes % (Manual) 4.0 L Nucleated RBC % Seg Neutrophils # Seg Neutrophils # Man 33.6 H Lymphocytes # (Manual) Monocytes # (Manual) PT INR APTT D-Dimer Heparin Anti-Xa Level ABG pH POC ABG pCO2 POC ABG pO2 ABG pO2 ABG HCO3 ABG Hemoglobin ABG Oxyhemoglobin ABG Sodium ABG Potassium ABG Chloride ABG Glucose Carboxyhemoglobin Sodium Potassium 5.9 H Chloride Carbon Dioxide 20 L BUN 144 H Creatinine 6.4 H Glucose 149 H POC Glucose 128 H Lactic Acid Calcium 7.6 L Phosphorus Magnesium Ferritin Direct Bilirubin AST ALT Lactate Dehydrogenase Total Creatine Kinase C-Reactive Protein Total Protein Albumin Triglycerides Arterial Blood Glucose Arterial Blood Ionized Calcium Urine Creatinine Urine Chloride Vancomycin Trough Coronavirus (PCR) Crossmatch 06/26/20 06/26/20 06/26/20 05:47 12:47 17:42 WBC RBC Hgb Hct MCHC RDW Lymph % (Auto) Lymph # (Auto) [place] # (Auto) Seg Neutrophils % Seg Neuts % (Manual) Lymphocytes % (Manual) Nucleated RBC % Seg Neutrophils # Seg Neutrophils # Man Lymphocytes # (Manual) Monocytes # (Manual) PT 17.4 H INR 1.44 H APTT D-Dimer Heparin Anti-Xa Level ABG pH POC ABG pCO2 POC ABG pO2 ABG pO2 ABG HCO3 ABG Hemoglobin ABG Oxyhemoglobin ABG Sodium ABG Potassium ABG Chloride ABG Glucose Carboxyhemoglobin Sodium Potassium Chloride Carbon Dioxide BUN Creatinine Glucose POC Glucose 124 H 127 H Lactic Acid Calcium Phosphorus Magnesium Ferritin Direct Bilirubin AST ALT Lactate Dehydrogenase Total Creatine Kinase C-Reactive Protein Total Protein Albumin Triglycerides Arterial Blood Glucose Arterial Blood Ionized Calcium Urine Creatinine Urine Chloride Vancomycin Trough Coronavirus (PCR) Crossmatch 06/26/20 06/27/20 06/27/20 23:30 03:32 04:00 WBC RBC Hgb 8.7 L Hct 26.4 L MCHC RDW Lymph % (Auto) Lymph # (Auto) [place] # (Auto) Seg Neutrophils % Seg Neuts % (Manual) Lymphocytes % (Manual) Nucleated RBC % Seg Neutrophils # Seg Neutrophils # Man Lymphocytes # (Manual) Monocytes # (Manual) PT INR APTT D-Dimer Heparin Anti-Xa Level ABG pH 7.298 L POC ABG pCO2 POC ABG pO2 ABG pO2 ABG HCO3 ABG Hemoglobin 9.6 L ABG Oxyhemoglobin ABG Sodium 124.4 L ABG Potassium 6.6 H ABG Chloride ABG Glucose 136 H Carboxyhemoglobin Sodium Potassium Chloride Carbon Dioxide BUN Creatinine Glucose POC Glucose 123 H Lactic Acid Calcium Phosphorus Magnesium Ferritin Direct Bilirubin AST ALT Lactate Dehydrogenase Total Creatine Kinase C-Reactive Protein Total Protein Albumin Triglycerides Arterial Blood Glucose 136 H Arterial Blood Ionized Calcium 4.1 L Urine Creatinine Urine Chloride Vancomycin Trough Coronavirus (PCR) Crossmatch 06/27/20 06/27/20 06/27/20 05:26 10:14 11:58 WBC RBC Hgb Hct MCHC RDW Lymph % (Auto) Lymph # (Auto) [place] # (Auto) Seg Neutrophils % Seg Neuts % (Manual) Lymphocytes % (Manual) Nucleated RBC % Seg Neutrophils # Seg Neutrophils # Man Lymphocytes # (Manual) Monocytes # (Manual) PT INR APTT D-Dimer Heparin Anti-Xa Level ABG pH POC ABG pCO2 POC ABG pO2 ABG pO2 ABG HCO3 ABG Hemoglobin ABG Oxyhemoglobin ABG Sodium ABG Potassium ABG Chloride ABG Glucose Carboxyhemoglobin Sodium 136 L Potassium 7.0 H* Chloride 97.8 L Carbon Dioxide BUN 172 H Creatinine 7.4 H Glucose 129 H POC Glucose 124 H 115 H Lactic Acid Calcium 7.6 L Phosphorus Magnesium Ferritin Direct Bilirubin AST ALT Lactate Dehydrogenase Total Creatine Kinase C-Reactive Protein Total Protein Albumin Triglycerides Arterial Blood Glucose Arterial Blood Ionized Calcium Urine Creatinine Urine Chloride Vancomycin Trough Coronavirus (PCR) Crossmatch 06/27/20 06/27/20 06/27/20 17:32 18:30 23:24 WBC RBC Hgb Hct MCHC RDW Lymph % (Auto) Lymph # (Auto) [place] # (Auto) Seg Neutrophils % Seg Neuts % (Manual) Lymphocytes % (Manual) Nucleated RBC % Seg Neutrophils # Seg Neutrophils # Man Lymphocytes # (Manual) Monocytes # (Manual) PT INR APTT D-Dimer Heparin Anti-Xa Level ABG pH POC ABG pCO2 POC ABG pO2 ABG pO2 ABG HCO3 ABG Hemoglobin ABG Oxyhemoglobin ABG Sodium ABG Potassium ABG Chloride ABG Glucose Carboxyhemoglobin Sodium Potassium 7.3 H* Chloride Carbon Dioxide BUN Creatinine Glucose POC Glucose 122 H 116 H Lactic Acid Calcium Phosphorus Magnesium Ferritin Direct Bilirubin AST ALT Lactate Dehydrogenase Total Creatine Kinase C-Reactive Protein Total Protein Albumin Triglycerides Arterial Blood Glucose Arterial Blood Ionized Calcium Urine Creatinine Urine Chloride Vancomycin Trough Coronavirus (PCR) Crossmatch 06/28/20 06/28/20 06/28/20 00:00 02:16 05:37 WBC RBC Hgb Hct MCHC RDW Lymph % (Auto) Lymph # (Auto) [place] # (Auto) Seg Neutrophils % Seg Neuts % (Manual) Lymphocytes % (Manual) Nucleated RBC % Seg Neutrophils # Seg Neutrophils # Man Lymphocytes # (Manual) Monocytes # (Manual) PT INR APTT D-Dimer Heparin Anti-Xa Level ABG pH POC ABG pCO2 POC ABG pO2 79.0 L ABG pO2 ABG HCO3 ABG Hemoglobin 11.7 L ABG Oxyhemoglobin ABG Sodium 128.1 L ABG Potassium 6.6 H ABG Chloride ABG Glucose 124 H Carboxyhemoglobin Sodium Potassium 7.3 H* Chloride Carbon Dioxide BUN Creatinine Glucose POC Glucose 115 H Lactic Acid Calcium Phosphorus Magnesium Ferritin Direct Bilirubin AST ALT Lactate Dehydrogenase Total Creatine Kinase C-Reactive Protein Total Protein Albumin Triglycerides Arterial Blood Glucose 124 H Arterial Blood Ionized Calcium 4.2 L Urine Creatinine Urine Chloride Vancomycin Trough Coronavirus (PCR) Crossmatch 06/28/20 06/28/20 06/28/20 10:03 10:03 11:51 WBC 33.6 H RBC 3.03 L Hgb 8.9 L Hct 27.0 L MCHC RDW Lymph % (Auto) Lymph # (Auto) [place] # (Auto) Seg Neutrophils % Seg Neuts % (Manual) Lymphocytes % (Manual) Nucleated RBC % Seg Neutrophils # Seg Neutrophils # Man Lymphocytes # (Manual) Monocytes # (Manual) PT INR APTT D-Dimer Heparin Anti-Xa Level ABG pH POC ABG pCO2 POC ABG pO2 ABG pO2 ABG HCO3 ABG Hemoglobin ABG Oxyhemoglobin ABG Sodium ABG Potassium ABG Chloride ABG Glucose Carboxyhemoglobin Sodium 136 L Potassium 6.5 H* Chloride Carbon Dioxide 20 L BUN 129 H Creatinine 5.8 H Glucose 113 H POC Glucose 107 H Lactic Acid Calcium 7.6 L Phosphorus Magnesium Ferritin Direct Bilirubin AST ALT Lactate Dehydrogenase Total Creatine Kinase C-Reactive Protein Total Protein Albumin Triglycerides Arterial Blood Glucose Arterial Blood Ionized Calcium Urine Creatinine Urine Chloride Vancomycin Trough Coronavirus (PCR) Crossmatch 06/28/20 06/28/20 06/29/20 17:45 Unknown 03:15 WBC RBC Hgb Hct MCHC RDW Lymph % (Auto) Lymph # (Auto) [place] # (Auto) Seg Neutrophils % Seg Neuts % (Manual) Lymphocytes % (Manual) Nucleated RBC % Seg Neutrophils # Seg Neutrophils # Man Lymphocytes # (Manual) Monocytes # (Manual) PT INR APTT D-Dimer Heparin Anti-Xa Level ABG pH POC ABG pCO2 POC ABG pO2 ABG pO2 ABG HCO3 ABG Hemoglobin 7.8 L ABG Oxyhemoglobin ABG Sodium 127.4 L ABG Potassium 5.5 H ABG Chloride 97.0 L ABG Glucose 96 H Carboxyhemoglobin Sodium Potassium 5.4 H Chloride Carbon Dioxide BUN Creatinine Glucose POC Glucose 117 H Lactic Acid Calcium Phosphorus Magnesium Ferritin Direct Bilirubin AST ALT Lactate Dehydrogenase Total Creatine Kinase C-Reactive Protein Total Protein Albumin Triglycerides Arterial Blood Glucose 96 H Arterial Blood Ionized Calcium 4.0 L Urine Creatinine Urine Chloride Vancomycin Trough Coronavirus (PCR) Crossmatch 06/29/20 06/29/20 06/29/20 03:45 Unknown Unknown WBC RBC Hgb Hct MCHC RDW Lymph % (Auto) Lymph # (Auto) [place] # (Auto) Seg Neutrophils % Seg Neuts % (Manual) Lymphocytes % (Manual) Nucleated RBC % Seg Neutrophils # Seg Neutrophils # Man Lymphocytes # (Manual) Monocytes # (Manual) PT INR APTT D-Dimer Heparin Anti-Xa Level ABG pH POC ABG pCO2 POC ABG pO2 ABG pO2 ABG HCO3 ABG Hemoglobin ABG Oxyhemoglobin ABG Sodium ABG Potassium ABG Chloride ABG Glucose Carboxyhemoglobin Sodium 135 L Potassium 6.0 H 6.1 H* Chloride 94.8 L Carbon Dioxide BUN 109 H 114 H Creatinine 5.5 H Glucose POC Glucose Lactic Acid Calcium 7.4 L Phosphorus Magnesium Ferritin Direct Bilirubin AST 47 H ALT Lactate Dehydrogenase Total Creatine Kinase C-Reactive Protein Total Protein 4.9 L Albumin 2.2 L Triglycerides Arterial Blood Glucose Arterial Blood Ionized Calcium Urine Creatinine Urine Chloride Vancomycin Trough Coronavirus (PCR) Crossmatch 06/29/20 06/29/20 06/30/20 Unknown Unknown 03:32 WBC 20.7 H RBC 2.57 L Hgb 7.6 L Hct 23.0 L MCHC RDW Lymph % (Auto) Lymph # (Auto) [place] # (Auto) Seg Neutrophils % Seg Neuts % (Manual) Lymphocytes % (Manual) Nucleated RBC % Seg Neutrophils # Seg Neutrophils # Man Lymphocytes # (Manual) Monocytes # (Manual) PT INR APTT D-Dimer Heparin Anti-Xa Level ABG pH POC ABG pCO2 POC ABG pO2 ABG pO2 ABG HCO3 ABG Hemoglobin 11.4 L ABG Oxyhemoglobin ABG Sodium 130.1 L ABG Potassium 5.0 H ABG Chloride ABG Glucose Carboxyhemoglobin Sodium Potassium Chloride Carbon Dioxide BUN Creatinine Glucose POC Glucose Lactic Acid Calcium Phosphorus Magnesium Ferritin Direct Bilirubin AST ALT Lactate Dehydrogenase Total Creatine Kinase 618 H C-Reactive Protein Total Protein Albumin Triglycerides Arterial Blood Glucose Arterial Blood Ionized Calcium 3.9 L Urine Creatinine Urine Chloride Vancomycin Trough Coronavirus (PCR) Crossmatch 06/30/20 06/30/20 06/30/20 03:50 03:50 11:39 WBC 13.1 H RBC Hgb Hct MCHC RDW Lymph % (Auto) Lymph # (Auto) [place] # (Auto) Seg Neutrophils % Seg Neuts % (Manual) 95.0 H Lymphocytes % (Manual) 3.0 L Nucleated RBC % Seg Neutrophils # Seg Neutrophils # Man 12.4 H Lymphocytes # (Manual) 0.4 L Monocytes # (Manual) PT INR APTT D-Dimer Heparin Anti-Xa Level ABG pH POC ABG pCO2 POC ABG pO2 ABG pO2 ABG HCO3 ABG Hemoglobin ABG Oxyhemoglobin ABG Sodium ABG Potassium ABG Chloride ABG Glucose Carboxyhemoglobin Sodium 135 L Potassium 5.4 H D Chloride 93.6 L Carbon Dioxide BUN 85 H Creatinine 4.6 H Glucose POC Glucose 111 H Lactic Acid Calcium 7.1 L Phosphorus 9.40 H Magnesium Ferritin Direct Bilirubin AST ALT Lactate Dehydrogenase Total Creatine Kinase C-Reactive Protein Total Protein Albumin Triglycerides Arterial Blood Glucose Arterial Blood Ionized Calcium Urine Creatinine Urine Chloride Vancomycin Trough Coronavirus (PCR) Crossmatch 06/30/20 06/30/20 07/01/20 13:12 Unknown 03:19 WBC RBC Hgb 7.8 L D Hct 23.2 L D MCHC RDW Lymph % (Auto) Lymph # (Auto) [place] # (Auto) Seg Neutrophils % Seg Neuts % (Manual) Lymphocytes % (Manual) Nucleated RBC % Seg Neutrophils # Seg Neutrophils # Man Lymphocytes # (Manual) Monocytes # (Manual) PT INR APTT D-Dimer Heparin Anti-Xa Level ABG pH 7.461 H POC ABG pCO2 POC ABG pO2 77.2 L ABG pO2 ABG HCO3 ABG Hemoglobin 6.9 L ABG Oxyhemoglobin ABG Sodium 128.5 L ABG Potassium ABG Chloride 97.0 L ABG Glucose Carboxyhemoglobin Sodium Potassium Chloride Carbon Dioxide BUN Creatinine Glucose POC Glucose Lactic Acid Calcium Phosphorus Magnesium Ferritin Direct Bilirubin AST ALT Lactate Dehydrogenase Total Creatine Kinase C-Reactive Protein Total Protein Albumin Triglycerides Arterial Blood Glucose Arterial Blood Ionized Calcium 3.7 L Urine Creatinine Urine Chloride Vancomycin Trough Coronavirus (PCR) Positive A Crossmatch 07/01/20 07/01/20 07/01/20 06:00 06:00 11:04 WBC 16.7 H RBC 2.16 L Hgb 6.4 L Hct 19.2 L* MCHC RDW Lymph % (Auto) Lymph # (Auto) [place] # (Auto) Seg Neutrophils % Seg Neuts % (Manual) Lymphocytes % (Manual) Nucleated RBC % Seg Neutrophils # Seg Neutrophils # Man Lymphocytes # (Manual) Monocytes # (Manual) PT INR APTT D-Dimer Heparin Anti-Xa Level ABG pH POC ABG pCO2 POC ABG pO2 ABG pO2 ABG HCO3 ABG Hemoglobin ABG Oxyhemoglobin ABG Sodium ABG Potassium ABG Chloride ABG Glucose Carboxyhemoglobin Sodium 136 L Potassium Chloride 95.8 L Carbon Dioxide BUN 72 H Creatinine 4.3 H Glucose POC Glucose Lactic Acid Calcium 6.7 L Phosphorus Magnesium Ferritin Direct Bilirubin AST ALT Lactate Dehydrogenase Total Creatine Kinase C-Reactive Protein Total Protein Albumin Triglycerides 250 H Arterial Blood Glucose Arterial Blood Ionized Calcium Urine Creatinine Urine Chloride Vancomycin Trough Coronavirus (PCR) Crossmatch See Detail 07/02/20 07/02/20 07/02/20 04:44 06:00 11:33 WBC 14.6 H RBC 2.47 L Hgb 7.4 L Hct 21.8 L MCHC RDW Lymph % (Auto) Lymph # (Auto) [place] # (Auto) Seg Neutrophils % Seg Neuts % (Manual) Lymphocytes % (Manual) Nucleated RBC % Seg Neutrophils # Seg Neutrophils # Man Lymphocytes # (Manual) Monocytes # (Manual) PT INR APTT D-Dimer Heparin Anti-Xa Level ABG pH 7.457 H POC ABG pCO2 POC ABG pO2 79.4 L ABG pO2 ABG HCO3 ABG Hemoglobin 8.5 L ABG Oxyhemoglobin ABG Sodium 128.4 L ABG Potassium ABG Chloride 97.0 L ABG Glucose 100 H Carboxyhemoglobin Sodium 133 L Potassium 5.2 H Chloride 93.3 L Carbon Dioxide BUN 66 H Creatinine 4.1 H Glucose 102 H POC Glucose Lactic Acid Calcium 7.2 L Phosphorus Magnesium Ferritin Direct Bilirubin AST ALT Lactate Dehydrogenase Total Creatine Kinase C-Reactive Protein Total Protein Albumin Triglycerides Arterial Blood Glucose 100 H Arterial Blood Ionized Calcium 3.9 L Urine Creatinine Urine Chloride Vancomycin Trough Coronavirus (PCR) Crossmatch 07/02/20 07/03/20 07/03/20 11:33 03:54 09:15 WBC 16.6 H RBC 2.44 L Hgb 7.3 L Hct 21.4 L MCHC RDW Lymph % (Auto) Lymph # (Auto) [place] # (Auto) Seg Neutrophils % Seg Neuts % (Manual) Lymphocytes % (Manual) Nucleated RBC % Seg Neutrophils # Seg Neutrophils # Man Lymphocytes # (Manual) Monocytes # (Manual) PT INR APTT D-Dimer Heparin Anti-Xa Level ABG pH POC ABG pCO2 POC ABG pO2 66.1 L ABG pO2 ABG HCO3 ABG Hemoglobin 8.0 L ABG Oxyhemoglobin ABG Sodium 124.6 L ABG Potassium 5.5 H ABG Chloride 96.0 L ABG Glucose 111 H Carboxyhemoglobin Sodium Potassium Chloride Carbon Dioxide BUN Creatinine Glucose POC Glucose Lactic Acid Calcium Phosphorus Magnesium Ferritin Direct Bilirubin 0.7 H AST 94 H ALT 60 H Lactate Dehydrogenase Total Creatine Kinase C-Reactive Protein Total Protein 4.4 L Albumin 1.9 L Triglycerides Arterial Blood Glucose 111 H Arterial Blood Ionized Calcium 3.8 L Urine Creatinine Urine Chloride Vancomycin Trough Coronavirus (PCR) Crossmatch 07/03/20 07/03/20 07/03/20 09:15 10:10 14:50 WBC RBC Hgb Hct MCHC RDW Lymph % (Auto) Lymph # (Auto) [place] # (Auto) Seg Neutrophils % Seg Neuts % (Manual) Lymphocytes % (Manual) Nucleated RBC % Seg Neutrophils # Seg Neutrophils # Man Lymphocytes # (Manual) Monocytes # (Manual) PT INR APTT D-Dimer 6608.00 H Heparin Anti-Xa Level ABG pH POC ABG pCO2 POC ABG pO2 ABG pO2 ABG HCO3 ABG Hemoglobin ABG Oxyhemoglobin ABG Sodium ABG Potassium ABG Chloride ABG Glucose Carboxyhemoglobin Sodium 133 L Potassium 6.2 H* Chloride 93.1 L Carbon Dioxide BUN 89 H Creatinine 5.1 H Glucose POC Glucose Lactic Acid Calcium 7.0 L Phosphorus Magnesium Ferritin Direct Bilirubin AST ALT Lactate Dehydrogenase Total Creatine Kinase C-Reactive Protein Total Protein Albumin Triglycerides Arterial Blood Glucose Arterial Blood Ionized Calcium Urine Creatinine Urine Chloride Vancomycin Trough Coronavirus (PCR) Positive A Crossmatch 07/03/20 07/03/20 07/03/20 14:50 14:50 14:50 WBC RBC Hgb Hct MCHC RDW Lymph % (Auto) Lymph # (Auto) [place] # (Auto) Seg Neutrophils % Seg Neuts % (Manual) Lymphocytes % (Manual) Nucleated RBC % Seg Neutrophils # Seg Neutrophils # Man Lymphocytes # (Manual) Monocytes # (Manual) PT INR APTT D-Dimer Heparin Anti-Xa Level ABG pH POC ABG pCO2 POC ABG pO2 ABG pO2 ABG HCO3 ABG Hemoglobin ABG Oxyhemoglobin ABG Sodium ABG Potassium ABG Chloride ABG Glucose Carboxyhemoglobin Sodium Potassium Chloride Carbon Dioxide BUN Creatinine Glucose POC Glucose Lactic Acid < 0.20 L Calcium Phosphorus Magnesium Ferritin 1171.0 H Direct Bilirubin AST ALT Lactate Dehydrogenase 525 H Total Creatine Kinase C-Reactive Protein 31.50 H Total Protein Albumin Triglycerides Arterial Blood Glucose Arterial Blood Ionized Calcium Urine Creatinine Urine Chloride Vancomycin Trough Coronavirus (PCR) Crossmatch 07/03/20 07/04/20 07/04/20 16:47 05:20 05:20 WBC 11.8 H RBC 2.32 L Hgb 6.7 L Hct 20.8 L MCHC RDW Lymph % (Auto) 2.6 L Lymph # (Auto) 0.3 L [place] # (Auto) Seg Neutrophils % Seg Neuts % (Manual) Lymphocytes % (Manual) Nucleated RBC % Seg Neutrophils # 11.0 H Seg Neutrophils # Man Lymphocytes # (Manual) Monocytes # (Manual) PT INR APTT D-Dimer Heparin Anti-Xa Level ABG pH POC ABG pCO2 POC ABG pO2 ABG pO2 ABG HCO3 ABG Hemoglobin ABG Oxyhemoglobin ABG Sodium ABG Potassium ABG Chloride ABG Glucose Carboxyhemoglobin Sodium Potassium 6.0 H Chloride 97.8 L Carbon Dioxide BUN 75 H Creatinine 4.5 H Glucose 121 H POC Glucose 107 H Lactic Acid Calcium 7.9 L Phosphorus Magnesium Ferritin Direct Bilirubin AST ALT Lactate Dehydrogenase Total Creatine Kinase C-Reactive Protein Total Protein Albumin Triglycerides Arterial Blood Glucose Arterial Blood Ionized Calcium Urine Creatinine Urine Chloride Vancomycin Trough Coronavirus (PCR) Crossmatch 07/04/20 07/04/20 07/04/20 05:20 05:50 09:25 WBC RBC Hgb Hct MCHC RDW Lymph % (Auto) Lymph # (Auto) [place] # (Auto) Seg Neutrophils % Seg Neuts % (Manual) Lymphocytes % (Manual) Nucleated RBC % Seg Neutrophils # Seg Neutrophils # Man Lymphocytes # (Manual) Monocytes # (Manual) PT INR APTT D-Dimer Heparin Anti-Xa Level ABG pH 7.324 L POC ABG pCO2 POC ABG pO2 ABG pO2 98.9 H ABG HCO3 26.8 H ABG Hemoglobin < 5.1 L ABG Oxyhemoglobin ABG Sodium ABG Potassium ABG Chloride ABG Glucose Carboxyhemoglobin Sodium Potassium Chloride Carbon Dioxide BUN Creatinine Glucose POC Glucose 114 H Lactic Acid Calcium Phosphorus Magnesium Ferritin Direct Bilirubin AST ALT Lactate Dehydrogenase Total Creatine Kinase C-Reactive Protein Total Protein Albumin Triglycerides Arterial Blood Glucose Arterial Blood Ionized Calcium Urine Creatinine Urine Chloride Vancomycin Trough Coronavirus (PCR) Crossmatch See Detail 07/04/20 07/04/20 07/04/20 12:33 17:41 23:04 WBC RBC Hgb Hct MCHC RDW Lymph % (Auto) Lymph # (Auto) [place] # (Auto) Seg Neutrophils % Seg Neuts % (Manual) Lymphocytes % (Manual) Nucleated RBC % Seg Neutrophils # Seg Neutrophils # Man Lymphocytes # (Manual) Monocytes # (Manual) PT INR APTT D-Dimer Heparin Anti-Xa Level ABG pH POC ABG pCO2 POC ABG pO2 ABG pO2 ABG HCO3 ABG Hemoglobin ABG Oxyhemoglobin ABG Sodium ABG Potassium ABG Chloride ABG Glucose Carboxyhemoglobin Sodium Potassium Chloride Carbon Dioxide BUN Creatinine Glucose POC Glucose 119 H 109 H 116 H Lactic Acid Calcium Phosphorus Magnesium Ferritin Direct Bilirubin AST ALT Lactate Dehydrogenase Total Creatine Kinase C-Reactive Protein Total Protein Albumin Triglycerides Arterial Blood Glucose Arterial Blood Ionized Calcium Urine Creatinine Urine Chloride Vancomycin Trough Coronavirus (PCR) Crossmatch 07/05/20 07/05/20 07/05/20 04:30 08:21 08:21 WBC RBC 2.77 L Hgb 7.9 L Hct 23.9 L MCHC RDW 16.7 H Lymph % (Auto) 7.5 L Lymph # (Auto) 0.7 L [place] # (Auto) Seg Neutrophils % 85.8 H Seg Neuts % (Manual) Lymphocytes % (Manual) Nucleated RBC % Seg Neutrophils # 7.8 H Seg Neutrophils # Man Lymphocytes # (Manual) Monocytes # (Manual) PT INR APTT D-Dimer Heparin Anti-Xa Level ABG pH 7.295 L POC ABG pCO2 POC ABG pO2 ABG pO2 151.9 H ABG HCO3 26.8 H ABG Hemoglobin 7.3 L ABG Oxyhemoglobin ABG Sodium ABG Potassium ABG Chloride ABG Glucose Carboxyhemoglobin Sodium Potassium Chloride Carbon Dioxide BUN Creatinine Glucose POC Glucose Lactic Acid Calcium Phosphorus Magnesium Ferritin Direct Bilirubin AST ALT Lactate Dehydrogenase Total Creatine Kinase C-Reactive Protein Total Protein Albumin Triglycerides 258 H Arterial Blood Glucose Arterial Blood Ionized Calcium Urine Creatinine Urine Chloride Vancomycin Trough Coronavirus (PCR) Crossmatch 07/05/20 07/05/20 07/06/20 08:21 12:12 04:29 WBC RBC Hgb Hct MCHC RDW Lymph % (Auto) Lymph # (Auto) [place] # (Auto) Seg Neutrophils % Seg Neuts % (Manual) Lymphocytes % (Manual) Nucleated RBC % Seg Neutrophils # Seg Neutrophils # Man Lymphocytes # (Manual) Monocytes # (Manual) PT INR APTT D-Dimer Heparin Anti-Xa Level ABG pH 7.291 L POC ABG pCO2 51.3 H POC ABG pO2 ABG pO2 ABG HCO3 ABG Hemoglobin 8.5 L ABG Oxyhemoglobin ABG Sodium 129.6 L ABG Potassium 4.8 H ABG Chloride 96.0 L ABG Glucose Carboxyhemoglobin Sodium 133 L Potassium 5.6 H Chloride 94.4 L Carbon Dioxide BUN 80 H Creatinine 4.2 H Glucose 114 H POC Glucose 106 H Lactic Acid Calcium 7.6 L Phosphorus Magnesium Ferritin Direct Bilirubin 0.5 H AST 75 H ALT 86 H Lactate Dehydrogenase Total Creatine Kinase C-Reactive Protein Total Protein 5.6 L D Albumin 1.9 L Triglycerides Arterial Blood Glucose Arterial Blood Ionized Calcium 4.2 L Urine Creatinine Urine Chloride Vancomycin Trough Coronavirus (PCR) Crossmatch 07/06/20 07/06/20 07/06/20 11:35 11:35 12:16 WBC RBC 2.54 L Hgb 7.5 L Hct 21.5 L MCHC 35 H RDW 15.7 H Lymph % (Auto) Lymph # (Auto) [place] # (Auto) Seg Neutrophils % Seg Neuts % (Manual) Lymphocytes % (Manual) Nucleated RBC % Seg Neutrophils # Seg Neutrophils # Man Lymphocytes # (Manual) Monocytes # (Manual) PT INR APTT D-Dimer Heparin Anti-Xa Level ABG pH POC ABG pCO2 POC ABG pO2 ABG pO2 ABG HCO3 ABG Hemoglobin ABG Oxyhemoglobin ABG Sodium ABG Potassium ABG Chloride ABG Glucose Carboxyhemoglobin Sodium 130 L Potassium Chloride 92.2 L Carbon Dioxide 19 L D BUN 107 H Creatinine 5.1 H Glucose 106 H POC Glucose 106 H Lactic Acid Calcium 7.5 L Phosphorus Magnesium Ferritin Direct Bilirubin AST ALT Lactate Dehydrogenase Total Creatine Kinase C-Reactive Protein Total Protein Albumin Triglycerides Arterial Blood Glucose Arterial Blood Ionized Calcium Urine Creatinine Urine Chloride Vancomycin Trough Coronavirus (PCR) Crossmatch 07/06/20 07/06/20 07/06/20 17:01 21:56 23:41 WBC RBC Hgb Hct MCHC RDW Lymph % (Auto) Lymph # (Auto) [place] # (Auto) Seg Neutrophils % Seg Neuts % (Manual) Lymphocytes % (Manual) Nucleated RBC % Seg Neutrophils # Seg Neutrophils # Man Lymphocytes # (Manual) Monocytes # (Manual) PT INR APTT D-Dimer Heparin Anti-Xa Level ABG pH POC ABG pCO2 POC ABG pO2 ABG pO2 ABG HCO3 ABG Hemoglobin ABG Oxyhemoglobin ABG Sodium ABG Potassium ABG Chloride ABG Glucose Carboxyhemoglobin Sodium 135 L Potassium 5.1 H Chloride Carbon Dioxide BUN 73 H Creatinine 4.0 H Glucose 112 H POC Glucose 109 H 111 H Lactic Acid Calcium 7.8 L Phosphorus Magnesium Ferritin Direct Bilirubin AST ALT Lactate Dehydrogenase Total Creatine Kinase C-Reactive Protein Total Protein Albumin Triglycerides Arterial Blood Glucose Arterial Blood Ionized Calcium Urine Creatinine Urine Chloride Vancomycin Trough Coronavirus (PCR) Crossmatch 07/07/20 07/07/20 07/07/20 04:18 05:04 05:29 WBC RBC 2.46 L Hgb 7.6 L Hct 21.5 L MCHC 35 H RDW 16.5 H Lymph % (Auto) Lymph # (Auto) [place] # (Auto) Seg Neutrophils % Seg Neuts % (Manual) 82.0 H Lymphocytes % (Manual) Nucleated RBC % 1.0 H Seg Neutrophils # Seg Neutrophils # Man Lymphocytes # (Manual) 1.1 L Monocytes # (Manual) PT INR APTT D-Dimer Heparin Anti-Xa Level ABG pH POC ABG pCO2 POC ABG pO2 79.6 L ABG pO2 ABG HCO3 ABG Hemoglobin 8.2 L ABG Oxyhemoglobin ABG Sodium 133.3 L ABG Potassium 4.7 H ABG Chloride ABG Glucose 135 H Carboxyhemoglobin Sodium Potassium Chloride Carbon Dioxide BUN Creatinine Glucose POC Glucose 112 H Lactic Acid Calcium Phosphorus Magnesium Ferritin Direct Bilirubin AST ALT Lactate Dehydrogenase Total Creatine Kinase C-Reactive Protein Total Protein Albumin Triglycerides Arterial Blood Glucose 135 H Arterial Blood Ionized Calcium 4.5 L Urine Creatinine Urine Chloride Vancomycin Trough Coronavirus (PCR) Crossmatch 07/07/20 07/07/20 07/07/20 10:17 12:18 17:43 WBC RBC Hgb Hct MCHC RDW Lymph % (Auto) Lymph # (Auto) [place] # (Auto) Seg Neutrophils % Seg Neuts % (Manual) Lymphocytes % (Manual) Nucleated RBC % Seg Neutrophils # Seg Neutrophils # Man Lymphocytes # (Manual) Monocytes # (Manual) PT INR APTT D-Dimer Heparin Anti-Xa Level ABG pH POC ABG pCO2 POC ABG pO2 ABG pO2 ABG HCO3 ABG Hemoglobin ABG Oxyhemoglobin ABG Sodium ABG Potassium ABG Chloride ABG Glucose Carboxyhemoglobin Sodium 136 L Potassium Chloride 96.8 L Carbon Dioxide BUN 82 H Creatinine 4.3 H Glucose 129 H POC Glucose 108 H 116 H Lactic Acid Calcium 7.8 L Phosphorus Magnesium Ferritin Direct Bilirubin AST ALT Lactate Dehydrogenase Total Creatine Kinase C-Reactive Protein Total Protein Albumin Triglycerides Arterial Blood Glucose Arterial Blood Ionized Calcium Urine Creatinine Urine Chloride Vancomycin Trough Coronavirus (PCR) Crossmatch 07/07/20 07/08/20 07/08/20 23:31 04:00 04:00 WBC RBC 2.52 L Hgb 7.3 L Hct 22.2 L MCHC RDW 16.6 H Lymph % (Auto) 11.5 L Lymph # (Auto) [place] # (Auto) Seg Neutrophils % 78.2 H Seg Neuts % (Manual) Lymphocytes % (Manual) Nucleated RBC % Seg Neutrophils # 8.0 H Seg Neutrophils # Man Lymphocytes # (Manual) Monocytes # (Manual) PT INR APTT D-Dimer Heparin Anti-Xa Level ABG pH POC ABG pCO2 POC ABG pO2 ABG pO2 ABG HCO3 ABG Hemoglobin ABG Oxyhemoglobin ABG Sodium ABG Potassium ABG Chloride ABG Glucose Carboxyhemoglobin Sodium 132 L Potassium 5.4 H Chloride 92.5 L Carbon Dioxide BUN 98 H Creatinine 4.9 H Glucose 105 H POC Glucose 117 H Lactic Acid Calcium 7.9 L Phosphorus Magnesium Ferritin Direct Bilirubin AST ALT Lactate Dehydrogenase Total Creatine Kinase C-Reactive Protein Total Protein Albumin Triglycerides Arterial Blood Glucose Arterial Blood Ionized Calcium Urine Creatinine Urine Chloride Vancomycin Trough Coronavirus (PCR) Crossmatch 07/08/20 04:09 WBC RBC Hgb Hct MCHC RDW Lymph % (Auto) Lymph # (Auto) [place] # (Auto) Seg Neutrophils % Seg Neuts % (Manual) Lymphocytes % (Manual) Nucleated RBC % Seg Neutrophils # Seg Neutrophils # Man Lymphocytes # (Manual) Monocytes # (Manual) PT INR APTT D-Dimer Heparin Anti-Xa Level ABG pH 7.220 L POC ABG pCO2 60.5 H POC ABG pO2 ABG pO2 ABG HCO3 ABG Hemoglobin 8.2 L ABG Oxyhemoglobin ABG Sodium 131.3 L ABG Potassium 5.2 H ABG Chloride ABG Glucose 103 H Carboxyhemoglobin Sodium Potassium Chloride Carbon Dioxide BUN Creatinine Glucose POC Glucose Lactic Acid Calcium Phosphorus Magnesium Ferritin Direct Bilirubin AST ALT Lactate Dehydrogenase Total Creatine Kinase C-Reactive Protein Total Protein Albumin Triglycerides Arterial Blood Glucose 103 H Arterial Blood Ionized Calcium 4.3 L Urine Creatinine Urine Chloride Vancomycin Trough Coronavirus (PCR) Crossmatch Chest x-ray: image reviewed (increased bilateral infiltrates overall) Allied health notes reviewed: nursing
--- NOTE | 2020-07-08 13:39 | Progress Note ---
Assessment and Plan Pt resumed on levophed overnight, BPs unable to tolerate PO cardizem. Initiate PO amio. Will follow on as needed basis over the weekend. The patient has been seen in conjunction with Dr. Singh who agrees with the assessment and plan of care. - Patient Problems (1) Acute respiratory failure with hypoxia Current Visit: Yes Status: Acute (2) Pneumonia due to COVID-19 virus Current Visit: Yes Status: Acute (3) Sepsis Current Visit: Yes Status: Acute Qualifiers: Severe sepsis acute organ dysfunction type: acute respiratory failure Severe sepsis shock status: with septic shock (4) Atrial fibrillation with rapid ventricular response Current Visit: Yes Status: Acute (5) Acute renal failure Current Visit: Yes Status: Acute (6) Elevated LFTs Current Visit: Yes Status: Acute (7) Anemia Current Visit: Yes Status: Acute Subjective Date of service: 07/08/20 Principal diagnosis: ARF; Septic Shock; COVID-19 PNA; Atrial fibrillation; Obesity Interval history: pt remains intubated, sedated. intermittently requiring vasopressor support. tele reviewed - currently in AFib/AFlutter HR 90s - 100s. Objective Last Vital Signs Temp 98.3 F 07/08/20 12:14 Pulse 100 H 07/08/20 12:14 Resp 19 07/08/20 12:14 BP 112/55 07/08/20 12:14 Pulse Ox 97 07/08/20 12:14 - Physical Examination General: Other (intubated, lethargic) Neck: Positive: neck supple Cardiac: Positive: irregularly irregular, S1/S2 Lungs: Positive: Decreased Breath Sounds Neuro: Positive: Other (intubated, lethargic) Abdomen: Positive: Soft Skin: Negative: Rash, Wound Extremities: Present: upper extr. pulses, lower extr. pulses, +1 Edema - Labs and Meds CBC 07/08/20 Range/Units 04:00 WBC 10.2 (4.5-11.0) K/mm3 RBC 2.52 L (3.65-5.03) M/mm3 Hgb 7.3 L (11.8-15.2) gm/dl Hct 22.2 L (35.5-45.6) % Plt Count 213 (140-440) K/mm3 Lymph # (Auto) 1.2 (1.2-5.4) K/mm3 [place] # (Auto) 0.6 (0.0-0.8) K/mm3 Eos # (Auto) 0.4 (0.0-0.4) K/mm3 Baso # (Auto) 0.1 (0.0-0.1) K/mm3 Comprehensive Metabolic Panel 07/08/20 Range/Units 04:00 Sodium 132 L (137-145) mmol/L Potassium 5.4 H (3.6-5.0) mmol/L Chloride 92.5 L (98-107) mmol/L Carbon Dioxide 28 (22-30) mmol/L BUN 98 H (9-20) mg/dL Creatinine 4.9 H (0.8-1.3) mg/dL Glucose 105 H (75-100) mg/dL Calcium 7.9 L (8.4-10.2) mg/dL - Imaging and Cardiology EKG: report reviewed, image reviewed Echo: report reviewed (TDS, EF 55-60%. ) - Telemetry EKG Rhythm: Atrial Fibrillation - EKG Sinus rhythms and dysrhythmias: sinus tachycardia - Allied health notes Allied health notes reviewed: nursing
[2020-07-09] MEDS: fentaNYL 100 MCG/2 ML INJ IV PRN (00:20)
[2020-07-09] MEDS: fentaNYL DRIP Premix 2,000 MCG/100 ML BAG IV SCH ×3 (04:04→14:50)
[2020-07-09] MEDS: INSULIN REGULAR, HUMAN 100 UNITS/1 ML SUB-Q SCH ×5 (05:32→23:57)
[2020-07-09] MEDS: EPOETIN ALFA-EPBX 10,000 UNIT/1 ML VIAL IV PRN (08:56)
[2020-07-09] MEDS: HEPARIN 5,000 UNIT/1 ML VIAL SUB-Q SCH ×3 (09:04→21:29)
[2020-07-09] MEDS: POLYETHYLENE GLYCOL 3350 17 GM POWDER PO SCH (09:21)
[2020-07-09] MEDS: dexAMETHasone 4 MG/ML VIAL IV SCH (09:21)
[2020-07-09] MEDS: CHOLECALCIFEROL (VIT D3) 1000 UNIT (25 mcg) TAB PO SCH (09:21)
[2020-07-09] MEDS: QUEtiapine 200 MG TAB PO SCH ×2 (09:21→21:29)
[2020-07-09] MEDS: SODIUM BICARBONATE 650 MG TAB PO SCH ×3 (09:21→20:30)
[2020-07-09] MEDS: FAMOTIDINE 20 MG/2 ML INJ IV SCH (09:21)
[2020-07-09] MEDS: AMIODARONE 200 MG TAB PO SCH ×2 (09:21→21:29)
[2020-07-09] MEDS: ASCORBIC ACID 250 MG TAB PO SCH ×2 (09:22→21:30)
[2020-07-09] MEDS: ZINC SULFATE 220 MG CAP PO SCH ×2 (09:23→21:31)
[2020-07-09] MEDS: DOCUSATE SODIUM 100 MG/10 ML ORAL LIQD FEEDTUBE SCH ×2 (09:25→21:29)
--- NOTE | 2020-07-09 10:32 | Progress Note ---
Assessment and Plan Assessment and plan: 59-year-old white male who was admitted for pneumonia secondary to Covid with associated respiratory failure and sepsis. Acute metabolic encephalopathy -Due to severe sepsis and severe hypoxia -CT head showed no acute process, currently intubated, continue supportive care with frequent neuro check Acute hypoxic respiratory failure -Due to severe COVID-19 pneumonia -Intubated following admission overnight as patient was unable to maintain oxygenation with 100% FiO2 with BiPAP -Critical care following, frequent nebulizer breathing treatment, s/p empiric steroid -Patient currently mechanically ventilated and unable to wean off Severe septic shock -Status post 2 pressor support -Still intermittently requiring pressor support, currently off pressor COVID-19 pneumonia -Follow inflammatory markers, ID consulted --Patient initially tested positive for COVID-19 virus about 2 weeks before this admission -CXR shows patchy parenchymal disease which represent pulmonary edema or atypical pneumonia -Placed on dexamethasone for total 10 days and completed remdesivir total 5 days -Continue empiric antibiotics for now per ID recommendation -Droplet/contact isolation -Continue SPO2 monitoring -Supplemental oxygen as needed -Pulmonary hygiene, Prone intermittently to improve oxygenation -Vitamin C, vitamin D, zinc -Anticoagulation per protocol GIRISH, likely ATN -Follow BMP daily, avoid nephrotoxins -Consulted nephrology, follow recommendations -Renal function continues to decline, started on hemodialysis since 06/22/20 Hyperkalemia -Treated aggressively, due to renal failure -s/p Calcium gluconate IV sodium bicarbonate and Kayexalate given -Patient currently on scheduled hemodialysis hypokalemia, repleted Supraventricular tachycardia/paroxysmal atrial fibrillation -likely due to severe sepsis -Status post IV amiodarone drip for rate control -Currently on Cardizem with tube feeding -Consulted cardiology, echo showed preserved EF -Placed on heparin drip but discontinued due to severe anemia requiring transfusion Elevated LFT, due to shock liver from severe sepsis and COVID-19 infection -Continue to trend Anemia likely due to severe sepsis and declining renal function Morbid obesity, -Associated with poor outcome with Covid infection -need counseling for diet and exercise and healthy lifestyles once clinically stable as outpatient DVT prophylaxis, on hold now for anemia The high probability of a clinically significant, sudden or life threatening deterioration of the [VETERANS SERVICE REPRESENTATIVE, CVS, renal, 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 The aggregate critical care time was [32] minutes. This time is in addition to time spent performing reported procedures but includes the following: [x] Data Review and interpretation [x] Patient assessment and monitoring of vital signs [x] Documentation [x] Medication orders and management Daily course: 06/18: Patient got intubated overnight. Patient was placed on BiPAP to maintain oxygenation with 100% FiO2 but apparently he found to take off his argueta which made his oxygen saturation go down at 60s/50s and patient was found altered mental status. Code met was called immediately. Patient was transferred to ICU and intubated, patient currently on 2 pressors, intubated with 100% FiO2, renal function noted to be decline, nephrology consulted. Discussed with [facility] physician Dr. Thompson and requested call back on Saturday. Poor prognosis, continue to monitor with aggressive supportive care. Also called family/ to update clinical status. 06/19: Repeat COVID test was positive. cont cefepime, remdesivir per ID recommendation. follow inflammatory markers, cbc, bmp. placed on heparin drip for atrial fib 06/20: Remains on mechanical ventilation, on 2 pressors, on heparin drip. discussed with and daughter by phone. Renal function declining. cont supportive care for now. 06/21: Renal function cont to decline, urine outpt sig decreased. started on lasix 80mg BID, plan to follow urine output, if no improvement patient need to start on HD. called and daughter today. updated all clinical details 06/22: Renal function continues to decline with uremia and hyperkalemia. Will need to proceed with hemodialysis. Nephrology discussed with the family and they agrees for the hemodialysis. Patient remains on pressor support and mechanical ventilation. Vas-Cath placed today by vascular started on hemodialysis today. 06/23: 2nd round of HD today, remains on 2 pressors. per RN not tolerating TF, has no record of BM since 06/18. start on stool softner. follow cbc/bmp. updated family( and daughter) by phone -all question answered to best of my knowledge and to their satisfaction. Patient remains critically ill with a very poor prognosis. 06/24: Continue supportive care, Very poor prognosis, Fisheries Inspector to discuss wit h family in am due to the futility of the condition. 06/25/2020 continue supportive care very poor prognosis 06/26/2020 continue supportive care very poor prognosis family updated 06/27/2020 continue supportive care and weaning if possible 06/28/2020 continue supportive care, talk with at length 06/29: Resumed care. K level persistently high. give one dose of bicarbonate, plan for HD today, recheck k after HD. updated family by phone 06/30: updated family by phone. Patient remains on amiodarone drip and vasopressin. Getting HD at the bedside. Tolerating tube feeding at low rate. 07/01: Hb dropped to 6.4 today, transfuse one unit PRBC. patient is off pressor today, remains on amioderone. cont to monitor 07/02: Called patient and updated clinical details. Patient remains critically ill, still intubated. Patient's oxygen requirement and PEEP pressure has went down. Continue weaning protocol per critical care recommendation. Patient remains off pressor. Continue to wean off from amiodarone and plan to rate control with p.o. medications. Tolerating tube feeding. H&H stable today. Order for stool for occult blood. Monitor H&H and BMP. Continue to follow clinically 07/03: discussed with [facility] physician today. Patient back on 100percent Fio2 since last night. planned for emergent Hd today. spiked fever, start IV Cefepime + Vancomycin renally dosed. Restarted Levophed today, remains on amiodarone drip. Patient family was updated by critical care attending today. 07/04: Patient has hemodialysis yesterday and also plan for today for volume ov erload and pulmonary edema. Patient currently on 80% FiO2. Remains on Levophed and amiodarone. Hemoglobin dropped to 6.7 without any evidence of active bleeding. LFTs remain stable. Repeat Covid test on 06/30 and 07/03 remains positive. Will transfuse another unit of packed RBC today. Called family for update -explained family that patient is critically ill with very poor prognosis. 07/05: Patient on 70% FiO2 with PEEP of 14. h/h stable after transfusion. hyperkalemia improved, cont sodiumbicarbonate pill with TF. follow BMP. off levophed today, remains on amioderone. poor prognosis. 07/06: Patient remains on amiodarone drip, maintaining BP without any pressor. FiO2 requirement trended down to 60% with PEEP of 14. Continue to follow clinically. Plan to wean off amiodarone drip as tolerated. Wean off from sedation as tolerated. Updated family. Patient remains critically ill with poor prognosis. 07/07: Called family for update. Off amiodarone drip today, patient also off pressor. FiO2 requirement trended up again to 80-100%. Continue to provide supportive care, monitor clinically. Having difficulty to wean off from the vent support. Patient is persistently positive for COVID-19 and COVID-19 antibody is nonreactive. Patient remains critically ill with very poor progn osis. 07/08: Continue supportive care. Trolley Cleaner senior payroll administrator and judge's clerk input noted. Prognosis remains guarded to poor. Management per team. Critical care time 35-minute 07/09/20 patient is tachycardic. Heart rate 121. Hemoglobin 7.3. Patient is having hemodialysis. Continue supportive care. Patient having difficulty to wean off from the vent support. Prognosis is poor. Nephrology and cardiology follow-up. Recheck CBC BMP in the morning. Continue current management. History Interval history: 07/09/20 patient seen and examined, remains on full ventilator patient is tachycardic. Heart rate 121. Hemoglobin 7.3. Patient is having h emodialysis. Continue supportive care. Patient having difficulty to wean off from the vent support. Prognosis is poor. Nephrology and cardiology follow up. Hospitalist Physical - Constitutional Vitals: Temp Pulse Resp BP Pulse Ox 98.9 F 121 H 24 108/55 96 07/09/20 08:00 07/09/20 09:45 07/09/20 08:45 07/09/20 09:45 07/09/20 08:45 General appearance: Present: no acute distress, mild distress, well-nourished - EENT Eyes: Present: PERRL ENT: hearing intact - Neck Neck: Present: supple - Respiratory Respiratory effort: normal - Cardiovascular Rhythm: regular Heart Sounds: Present: S1 & S2 - Extremities Extremities: no ischemia Peripheral Pulses: within normal limits - Abdominal General gastrointestinal: deferred - Integumentary Integumentary: Present: clear, warm, dry - Neurologic Neurologic: CNII-XII intact HEART Score - HEART Score Troponin: Troponin T < 0.010 ng/mL (0.00-0.029) 06/17/20 12:33 Results - Labs CBC & Chem 7: 07/08/20 04:00 07/08/20 04:00 Labs: Laboratory Last Values WBC 10.2 K/mm3 (4.5-11.0) 07/08/20 04:00 RBC 2.52 M/mm3 (3.65-5.03) L 07/08/20 04:00 Hgb 7.3 gm/dl (11.8-15.2) L 07/08/20 04:00 Hct 22.2 % (35.5-45.6) L 07/08/20 04:00 MCV 88 fl (84-94) 07/08/20 04:00 MCH 29 pg (28-32) 07/08/20 04:00 MCHC 33 % (32-34) 07/08/20 04:00 RDW 16.6 % (13.2-15.2) H 07/08/20 04:00 Plt Count 213 K/mm3 (140-440) 07/08/20 04:00 Lymph % (Auto) 11.5 % (13.4-35.0) L 07/08/20 04:00 [place] % (Auto) 6.2 % (0.0-7.3) 07/08/20 04:00 Eos % (Auto) 3.4 % (0.0-4.3) 07/08/20 04:00 Baso % (Auto) 0.7 % (0.0-1.8) 07/08/20 04:00 Lymph # (Auto) 1.2 K/mm3 (1.2-5.4) 07/08/20 04:00 [place] # (Auto) 0.6 K/mm3 (0.0-0.8) 07/08/20 04:00 Eos # (Auto) 0.4 K/mm3 (0.0-0.4) 07/08/20 04:00 Baso # (Auto) 0.1 K/mm3 (0.0-0.1) 07/08/20 04:00 Add Manual Diff Complete 07/07/20 05:04 Total Counted 100 07/07/20 05:04 Seg Neutrophils % 78.2 % (40.0-70.0) H 07/08/20 04:00 Seg Neuts % (Manual) 82.0 % (40.0-70.0) H 07/07/20 05:04 Band Neutrophils % 3.0 % 06/26/20 05:47 Lymphocytes % (Manual) 15.0 % (13.4-35.0) 07/07/20 05:04 Reactive Lymphs % (Man) 1.0 % 06/23/20 04:00 Monocytes % (Manual) 3.0 % (0.0-7.3) 07/07/20 05:04 Metamyelocytes % 1.0 % 06/26/20 05:47 Nucleated RBC % 1.0 % (0.0-0.9) H 07/07/20 05:04 Seg Neutrophils # 8.0 K/mm3 (1.8-7.7) H 07/08/20 04:00 Seg Neutrophils # Man 6.0 K/mm3 (1.8-7.7) 07/07/20 05:04 Band Neutrophils # 0.0 K/mm3 07/07/20 05:04 Lymphocytes # (Manual) 1.1 K/mm3 (1.2-5.4) L 07/07/20 05:04 Abs React Lymphs (Man) 0.0 K/mm3 07/07/20 05:04 Monocytes # (Manual) 0.2 K/mm3 (0.0-0.8) 07/07/20 05:04 Eosinophils # (Manual) 0.0 K/mm3 (0.0-0.4) 07/07/20 05:04 Basophils # (Manual) 0.0 K/mm3 (0.0-0.1) 07/07/20 05:04 Metamyelocytes # 0.0 K/mm3 07/07/20 05:04 Myelocytes # 0.0 K/mm3 07/07/20 05:04 Promyelocytes # 0.0 K/mm3 07/07/20 05:04 Blast Cells # 0.0 K/mm3 07/07/20 05:04 Pathologist Review Not Reportable 06/26/20 05:47 WBC Morphology Not Reportable 07/07/20 05:04 Hypersegmented Neuts Not Reportable 07/07/20 05:04 Hyposegmented Neuts Not Reportable 07/07/20 05:04 Hypogranular Neuts Not Reportable 07/07/20 05:04 Smudge Cells Not Reportable 07/07/20 05:04 Toxic Granulation Not Reportable 07/07/20 05:04 Toxic Vacuolation Not Reportable 07/07/20 05:04 Dohle Bodies Not Reportable 07/07/20 05:04 Pelger-Huet Anomaly Not Reportable 07/07/20 05:04 Carlito Rods Not Reportable 07/07/20 05:04 Platelet Estimate Consistent w auto 07/07/20 05:04 Clumped Platelets Not Reportable 07/07/20 05:04 Plt Clumps, EDTA Not Reportable 07/07/20 05:04 Large Platelets Not Reportable 07/07/20 05:04 Giant Platelets Not Reportable 07/07/20 05:04 Platelet Satelliting Not Reportable 07/07/20 05:04 Plt Morphology Comment Not Reportable 07/07/20 05:04 RBC Morphology Normal 07/07/20 05:04 Dimorphic RBCs Not Reportable 07/07/20 05:04 Polychromasia Not Reportable 07/07/20 05:04 Hypochromasia Not Reportable 07/07/20 05:04 Poikilocytosis Not Reportable 07/07/20 05:04 Anisocytosis Not Reportable 07/07/20 05:04 Microcytosis Not Reportable 07/07/20 05:04 Macrocytosis Not Reportable 07/07/20 05:04 Spherocytes Not Reportable 07/07/20 05:04 Pappenheimer Bodies Not Reportable 07/07/20 05:04 Sickle Cells Not Reportable 07/07/20 05:04 Target Cells Not Reportable 07/07/20 05:04 Tear Drop Cells Not Reportable 07/07/20 05:04 Ovalocytes Not Reportable 07/07/20 05:04 Helmet Cells Not Reportable 07/07/20 05:04 [place] Bodies Not Reportable 07/07/20 05:04 [place] Rings Not Reportable 07/07/20 05:04 [place] Cells Not Reportable 07/07/20 05:04 Bite Cells Not Reportable 07/07/20 05:04 Crenated Cell Not Reportable 07/07/20 05:04 Elliptocytes Not Reportable 07/07/20 05:04 Acanthocytes (Spur) Not Reportable 07/07/20 05:04 Rouleaux Not Reportable 07/07/20 05:04 Hemoglobin C Crystals Not Reportable 07/07/20 05:04 Schistocytes Not Reportable 07/07/20 05:04 Malaria parasites Not Reportable 07/07/20 05:04 Victor[place] Bodies Not Reportable 07/07/20 05:04 Hem Pathologist Commnt No 07/07/20 05:04 PT 17.4 Sec. (12.2-14.9) H 06/26/20 05:47 INR 1.44 (0.87-1.13) H 06/26/20 05:47 APTT 28.5 Sec. (24.2-36.6) 06/26/20 05:47 D-Dimer 6608.00 ng/mlDDU (0-234) H 07/03/20 14:50 Heparin Anti-Xa Level < 0.10 U.I./ml (0.3-0.7) L 06/26/20 01:30 ABG pH 7.361 (7.320-7.450) 07/09/20 05:10 POC ABG pCO2 46.9 mmHg (32.0-48.0) 07/09/20 05:10 ABG pCO2 56.4 mm Hg 07/05/20 04:30 POC ABG pO2 76.1 mmHg (83-108) L 07/09/20 05:10 ABG pO2 151.9 mm Hg (80.0-90.0) H 07/05/20 04:30 POC ABG HCO3 26 07/09/20 05:10 ABG HCO3 26.8 mmol/L (20.0-26.0) H 07/05/20 04:30 ABG O2 Saturation 98.7 % (95.0-99.0) 07/05/20 04:30 ABG O2 Content 5.0 (0.0-44) 07/04/20 05:20 POC ABG Base Excess 0.3 07/09/20 05:10 ABG Base Excess 0.1 mmol/L (-2.0-3.0) 07/05/20 04:30 ABG Hemoglobin 8.4 (12.0-17.5) L 07/09/20 05:10 ABG Oxyhemoglobin 97.6 (94-98) 07/08/20 20:21 ABG Carboxyhemoglobin 1.7 % (0.0-5.0) 07/05/20 04:30 ABG Methemoglobin 0.1 (0.0-1.5) 07/08/20 20:21 ABG Sodium 131.2 mmol/L (136.0-145.0) L 07/09/20 05:10 ABG Potassium 4.7 mmol/L (3.40-4.50) H 07/09/20 05:10 ABG Chloride 99.0 mmol/L (98-107) 07/09/20 05:10 ABG Glucose 102 mg/dL (65-95) H 07/09/20 05:10 Oxyhemoglobin 96.5 % (95.0-99.0) 07/05/20 04:30 Carboxyhemoglobin 0.8 (0.5-1.5) 07/08/20 20:21 FiO2 60 07/09/20 05:10 Sodium 132 mmol/L (137-145) L 07/08/20 04:00 Potassium 5.4 mmol/L (3.6-5.0) H 07/08/20 04:00 Chloride 92.5 mmol/L (98-107) L 07/08/20 04:00 Carbon Dioxide 28 mmol/L (22-30) 07/08/20 04:00 Anion Gap 17 mmol/L 07/08/20 04:00 BUN 98 mg/dL (9-20) H 07/08/20 04:00 Creatinine 4.9 mg/dL (0.8-1.3) H 07/08/20 04:00 Estimated GFR 15 ml/min 07/08/20 04:00 BUN/Creatinine Ratio 20 % 07/08/20 04:00 Glucose 105 mg/dL (75-100) H 07/08/20 04:00 POC Glucose 101 mg/dL (70-105) 07/09/20 05:49 Lactic Acid < 0.20 mmol/L (0.7-2.0) L 07/03/20 14:50 Calcium 7.9 mg/dL (8.4-10.2) L 07/08/20 04:00 Phosphorus 9.40 mg/dL (2.5-4.5) H 06/30/20 03:50 Magnesium 2.70 mg/dL (1.7-2.3) H 06/18/20 20:33 Ferritin 1171.0 ng/mL (30.0-300.0) H 07/03/20 14:50 Total Bilirubin 0.60 mg/dL (0.1-1.2) 07/05/20 08:21 Direct Bilirubin 0.5 mg/dL (0-0.2) H 07/05/20 08:21 Indirect Bilirubin 0.1 mg/dL 07/05/20 08:21 AST 75 units/L (5-40) H 07/05/20 08:21 ALT 86 units/L (7-56) H 07/05/20 08:21 Alkaline Phosphatase 107 units/L (35-129) 07/05/20 08:21 Lactate Dehydrogenase 525 units/L (91-180) H 07/03/20 14:50 Total Creatine Kinase 618 units/L (55-170) H 06/29/20 Unknown Troponin T < 0.010 ng/mL (0.00-0.029) 06/17/20 12:33 C-Reactive Protein 31.50 mg/dL (0.00-1.30) H 07/03/20 14:50 Total Protein 5.6 g/dL (6.3-8.2) L D 07/05/20 08:21 Albumin 1.9 g/dL (3.9-5) L 07/05/20 08:21 Albumin/Globulin Ratio 0.5 % 07/05/20 08:21 Triglycerides 258 mg/dL (2-149) H 07/05/20 08:21 Procalcitonin 15.78 ng/mL (<0.15) 07/03/20 14:50 Arterial Blood Glucose 102 mg/dL (65-95) H 07/09/20 05:10 Arterial Blood Ionized Calcium 4.3 mg/dL (4.6-5.3) L 07/09/20 05:10 Urine Color Yellow (Yellow) 06/17/20 15:57 Urine Turbidity Clear (Clear) 06/17/20 15:57 Urine pH 6.0 (5.0-7.0) 06/17/20 15:57 Ur Specific [place] 1.019 (1.003-1.030) 06/17/20 15:57 Urine Protein 30 mg/dl mg/dL (Negative) 06/17/20 15:57 Urine Glucose (UA) Neg mg/dL (Negative) 06/17/20 15:57 Urine Ketones Neg mg/dL (Negative) 06/17/20 15:57 Urine Blood Sm (Negative) 06/17/20 15:57 Urine Nitrite Neg (Negative) 06/17/20 15:57 Ur Reducing Substances Not Reportable 06/17/20 15:57 Urine Bilirubin Neg (Negative) 06/17/20 15:57 Urine Ictotest Not Reportable 06/17/20 15:57 Urine Urobilinogen < 2.0 mg/dL (<2.0) 06/17/20 15:57 Ur Leukocyte Esterase Neg (Negative) 06/17/20 15:57 Urine WBC (Auto) 1.0 /HPF (0.0-6.0) 06/17/20 15:57 Urine RBC (Auto) 2.0 /HPF (0.0-6.0) 06/17/20 15:57 Urine Mucus Few /HPF 06/17/20 15:57 Urine Creatinine 192.4 mg/dL (0.1-20.0) H 06/18/20 15:00 Urine Sodium 28 mmol/L 06/18/20 15:00 Urine Chloride 31.1 mmolL (110-250) L 06/18/20 15:00 Nasal Screen MRSA (PCR) Negative (Negative) 06/19/20 10:38 Vancomycin Trough 22.7 ug/mL (5.0-20.0) H 06/20/20 08:25 Coronavirus (PCR) Positive (Negative) A 07/03/20 10:10 Hepatitis A IgM Ab Non-reactive (NonReactive) 06/22/20 17:00 Hep Bs Antigen Non-reactive (Negative) 06/22/20 17:00 Hep B Core IgM Ab Non-reactive (NonReactive) 06/22/20 17:00 Hepatitis C Antibody Non-reactive (NonReactive) 06/22/20 17:00 SARS-CoV-2 IgG Ab Nonreactive (NonReactive) 07/04/20 05:20 Blood Type A POSITIVE 07/04/20 09:25 Antibody Screen Negative 07/04/20 09:25 Crossmatch See Detail 07/04/20 09:25 - Diagnostic Impressions Diagnostic Impressions: Echocardiogram 06/29/20 06:00 Transthoracic Echocardiogram Indication: A-fib BP: 105/47 HR: 99 Conclusions *The study is technically very difficult and limited due to poor acoustic windows. *Global left ventricular wall motion and contractility are within normal limits. *The estimated ejection fraction is 55-60%. *There is no pericardial effusion. Findings Procedure Info: The study quality is technically difficult. The study is technically limited due to poor acoustic windows. Left Ventricle: Global left ventricular wall motion and contractility are within normal limits. Global left ventricular systolic function is normal. The estimated ejection fraction is 55-60%. Left Atrium: The left atrium is not well visualized. Right Ventricle: The right ventricle is not well visualized. Right Atrium: The right atrium is not well visualized. Aortic Valve: The aortic valve is not well visualized. Mitral Valve: The mitral valve is not well visualized. Tricuspid Valve: The tricuspid valve is not well visualized. Pulmonic Valve: The pulmonic valve is not well visualized. Pericardium: There is no pericardial effusion. Venous: There is no change in the dimension of the inferior vena cava with respiration consistent with markedly increased right atrial pressure. [place]/IV: Voiding Method Indwelling Catheter Active Medications - Current Medications Current Medications: Generic Name Dose Route Start Last Admin Trade Name Freq PRN Reason Stop Dose Admin Acetaminophen 650 mg 06/17/20 14:17 07/03/20 09:16 Acetaminophen 325 Mg Tab PO 650 mg Q4H PRN Administration Pain MILD(1-3)/Fever >100.5/ROBERTS Amiodarone HCl 200 mg 07/08/20 12:30 07/09/20 09:21 Amiodarone 200 Mg Tab PO 200 mg BID CONNOR Administration Lipase/Protease/Amylase 1 each 06/19/20 12:15 Lipase 10,500/Protease 25,000/Amylase 43,750 (Units) Dr Kulkarni FEEDTUBE PRN PRN For Clogged Feeding Tube Ascorbic Acid 250 mg 06/17/20 22:00 07/09/20 09:22 Ascorbic Acid 250 Mg Tab PO 250 mg BID CONNOR Administration Cholecalciferol 1,000 unit 06/18/20 10:00 07/09/20 09:21 Cholecalciferol (Vit D3) 1000 Unit (25 Mcg) Tab PO 1,000 unit DAILY CONNOR Administration Dexamethasone 6 mg 07/03/20 14:00 07/09/20 09:21 Dexamethasone 4 Mg/Ml Vial IV 07/13/20 13:59 6 mg DAILY CONNOR Administration Docusate Sodium 100 mg 06/23/20 15:00 07/09/20 09:25 Docusate Sodium 100 Mg/10 Ml Oral Liqd FEEDTUBE Not Given BID CONNOR Famotidine 20 mg 06/20/20 11:00 07/09/20 09:21 Famotidine 20 Mg/2 Ml Inj IV 20 mg DAILY CONNOR Administration Fentanyl 50 mcg 06/18/20 01:02 07/09/20 00:20 Fentanyl 100 Mcg/2 Ml Inj IV 50 mcg Q10MIN PRN Administration ANALGESIA Heparin Sodium (Porcine) 5,000 unit 06/22/20 12:53 06/30/20 13:36 Heparin 10,000 Unit/1 Ml Vial IV 5,000 unit PAM PRN Administration hemodialysis Heparin Sodium (Porcine) 5,000 unit 07/03/20 22:00 07/09/20 09:04 Heparin 5,000 Unit/1 Ml Vial SUB-Q Not Given Q8HR CONNOR Hydrophilic Ointment 1 applic 06/17/20 22:52 07/02/20 20:45 Lip Therapy Vaseline TP 1 applic Q2HR PRN Administration Dry Lips Propofol 1,000 mg in 100 mls @ 3.402 mls/hr 06/18/20 01:00 07/09/20 05:59 Diprivan 10 Mg/Ml IV 10 mcg/kg/min TITR CONNOR 6.804 mls/hr Administration Protocol 5 MCG/KG/MIN Fentanyl Citrate 2,000 mcg in 100 mls @ 5.67 mls/hr 06/18/20 02:00 07/09/20 09:23 Fentanyl Drip Premix IV 4 mcg/kg/hr TITR CONNOR 22.68 mls/hr Administration Protocol 1 MCG/KG/HR Sodium Chloride 500 mls @ 1 mls/hr 06/18/20 09:38 06/19/20 21:37 Nacl 0.9% 500 Ml IV 0 mls/hr DIRECT PRN Infusion ARTERIAL LINE FLUSH Norepinephrine 4 mg in 250 mls @ 7.5 mls/hr 07/08/20 02:06 07/08/20 18:15 Levophed Drip 4 Mg/Ns 250 Ml IV 2 mcg/min TITR CONNOR 7.5 mls/hr Titration Protocol 2 MCG/MIN Sodium Chloride 100 mls @ 999 mls/hr 07/08/20 12:19 Nacl 0.9% IV PAM PRN Hypotension Insulin Human Regular 0 units 06/18/20 12:00 07/09/20 05:32 Insulin Regular, Human 100 Units/1 Ml SUB-Q Not Given Q6HR [facility] Protocol Multi-Ingred Cream/Lotion/Oil/Oint 1 applic 06/17/20 22:52 Mineral Oil/Petrolatum, White Ophth Oint 3.5 Gm OU Q4HR PRN Dry Eye(s) Ondansetron HCl 4 mg 06/17/20 14:17 Ondansetron 4 Mg/2 Ml Inj IV Q8H PRN Nausea And Vomiting Polyethylene Glycol 17 gm 06/23/20 15:00 07/09/20 09:21 Polyethylene Glycol 3350 17 Gm Powder PO 17 gm QDAY CONNOR Administration Quetiapine Fumarate 200 mg 06/28/20 13:00 07/09/20 09:21 Quetiapine 200 Mg Tab PO 200 mg BID CONNOR Administration Simple Syrup 15 ml 06/19/20 12:15 Simple Syrup 15 Ml FEEDTUBE PRN PRN Hypoglycemia Simple Syrup 30 ml 06/19/20 12:15 Simple Syrup 15 Ml FEEDTUBE PRN PRN Hypoglycemia Sodium Bicarbonate 325 mg 06/19/20 12:15 Sodium Bicarbonate 325 Mg Tab FEEDTUBE PRN PRN For Clogged Feeding Tube Sodium Bicarbonate 650 mg 07/04/20 10:00 07/09/20 09:21 Sodium Bicarbonate 650 Mg Tab PO 650 mg TID CONNOR Administration Sodium Chloride 10 ml 06/17/20 22:00 07/09/20 09:23 Sodium Chloride 0.9% 10 Ml Flush Syringe IV 10 ml BID CONNOR Administration Sodium Chloride 10 ml 06/17/20 14:17 Sodium Chloride 0.9% 10 Ml Flush Syringe IV PRN PRN LINE FLUSH Sodium Polystyrene Sulfonate 15 gm 07/03/20 11:19 07/05/20 10:36 Sodium Polystyrene 15 Gm/60 Ml Oral Liqd PO 15 gm Q6HR PRN Administration Hyperkalemia Zinc Sulfate 220 mg 06/17/20 22:00 07/09/20 09:23 Zinc Sulfate 220 Mg Cap PO 220 mg BID CONNOR Administration Nutrition/Malnutrition Assess - Dietary Evaluation Nutrition/Malnutrition Findings: Nutrition Notes Start: 06/18/20 10:28 Freq: Status: Active Protocol: Document 07/05/20 12:08 AL (Rec: 07/05/20 12:33 AL [id number]) Co-Sign 07/05/20 12:08 NHALL Nutrition Notes Initial or Follow up Reassessment Current Diagnosis Acute Kidney Injury,Sepsis, Respiratory Failure Other Pertinent Diagnosis COVID-19 (+), pneu Current Diet Nepro 1.8 at 40ml/hr Labs/Tests K 6 BUN 80 Cr 4.3 Na 133 Pertinent Medications Reglan Propofol at 10.2046 ml/hr (269 kcal) Colace Kionex Decadron Miralax Height 6 ft Weight 138.4 kg [place] Body Weight (kg) 80.90 BMI 41.3 Weight Status Obese Subjective/Other Information FU for stable TF. Pt tolerating TF at 40 ml/hr ( goal rate). Percent of energy/protein needs met: 89%/48% Burn Absent Trauma Absent Current % PO Negligible Minimum of two criteria No physical signs of malnutrition #2 Nutrition Diagnosis Overweight/obesity Diagnosis Progress(for reassessment Continues documentation) #1 Nutrition Diagnosis Inadequate oral intake Diagnosis Progress(for reassessment Continues documentation) Is patient on ventilator? Yes Is Patient Ambulatory and/or Out of Bed No REE-([facility]-confined to bed) 2670.696 Kcal/Kg value to use for calculation 14 Approximate Energy Requirements Using 1938 kcal/Kg Calculation Used for Recommendations Kcal/kg Additional Notes Protein needs up to >2 g/kg IBW: 162 g Fluid needs: 1,000 ml + output Nutrition Intervention Change Diet Order: TF Nutrition Support: Nepro 1.8 at 40ml/hr. Flush 70 ml q4hr for hyponatremia Flush 170ml q4h once resolved If proning regimen: Prone (12 hr): 20 ml/hr. Flush 85 ml q4h. Supine: 60 ml/hr Flush 255 ml q4h. [ End ] Kcal 1,728 Protein (gm) 78 Fluid (mL) 698 Goal #1 Tolerate TF at goal rate Goal #2 Meet energy and protein needs as best as possible. Anticipated Discharge Needs: Unable to determine at the time. Follow-Up By: 07/12/20 Additional Comments F/U for TF tolerance and labs, wt, and vent status - Malnutrition Assessment Minimum of two criteria: Yes - Attestation Statement I have reviewed and agreed w/ Malnutrition eval & tx plan: Yes
--- NOTE | 2020-07-09 10:42 | Progress Note ---
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 Kidney function worsened and patient developed hyperkalemia, refractory acidosis and worsening azotemia. Hemodialysis initiated on June 22. Hemodynamic status had improved and patient has been weaned off of vasopressors but is now back on Levophed. Undergoing hemodialysis today with goal 3.5 L ultrafiltration blood flow is 300 dialysate flow 600mls/min (2) Severe sepsis with septic shock Current Visit: Yes Status: Acute Plan to address problem: Continue antibiotics per infectious disease data consultant appropriately adjusted to the degree of renal function. Patient is back on vasopressors. (3) Hyperkalemia Current Visit: Yes Status: Acute Plan to address problem: Potassium has improved with intensive dialysis. Follow-up (4) Metabolic acidosis Current Visit: Yes Status: Acute Plan to address problem: Acidosis improving with dialysis. (5) Acute respiratory failure with hypoxia Current Visit: Yes Status: Acute Plan to address problem: Continue respiratory management by pulmonary (6) Pneumonia due to COVID-19 virus Current Visit: Yes Status: Acute Plan to address problem: IV Dexamethasone Supplemental oxygen/Respiratory support as needed Proning as tolerated Remdesevir contra-indicated due to Kidney failure Prophylactic anticoagulation Trend inflammatory markers to assess disease progression and prognosis (7) Transaminitis Current Visit: Yes Status: Acute Plan to address problem: Hypoperfusion injury. Follow-up liver function test Subjective Date of service: 07/09/20 Principal diagnosis: ARF; Septic Shock; COVID-19 PNA; Atrial fibrillation; Obesity Interval history: Patient was not examined today due to the COVID-19 status to limit exposure of the consulting food checkers and cashiers supervisor and also for PPE preservation. I reviewed multidisciplinary notes and discussed with staff and physicians as needed. Patient is sedated on propofol and fentanyl. He is on anticoagulation with intravenous heparin. Discussed with the nurse on medical floor. Patient is back on vasopressors. He is currently undergoing hemodialysis Objective - Exam Narrative Exam: Patient was not examined at the bedside today due to personal protective equipment preservation during the COVID-19 pandemic. - Vital Signs Vital signs: Vital Signs - 12hr 07/08/20 07/08/20 07/08/20 22:45 23:00 23:15 Temperature Pulse Rate 97 H 91 H 98 H Pulse Rate [ From Monitor] Respiratory 25 H 25 H 25 H Rate Blood Pressure 103/55 111/59 106/59 O2 Sat by Pulse 95 97 97 Oximetry O2 Sat by Pulse Oximetry [ Anterior Bilateral Throughout] 07/08/20 07/08/20 07/08/20 23:30 23:34 23:37 Temperature Pulse Rate 97 H 93 H 88 Pulse Rate [ From Monitor] Respiratory 25 H 25 H Rate Blood Pressure 108/62 108/62 106/59 O2 Sat by Pulse 98 99 98 Oximetry O2 Sat by Pulse Oximetry [ Anterior Bilateral Throughout] 07/08/20 07/09/20 07/09/20 23:45 00:00 00:15 Temperature 98.2 F Pulse Rate 101 H 128 H 120 H Pulse Rate [ 99 H From Monitor] Respiratory 25 H 30 H 27 H Rate Blood Pressure 101/68 101/68 100/76 O2 Sat by Pulse 98 90 81 L Oximetry O2 Sat by Pulse Oximetry [ Anterior Bilateral Throughout] 07/09/20 07/09/20 07/09/20 00:30 00:46 01:00 Temperature Pulse Rate 126 H 127 H 116 H Pulse Rate [ From Monitor] Respiratory 26 H 25 H 35 H Rate Blood Pressure 150/67 133/72 150/78 O2 Sat by Pulse 79 L 94 94 Oximetry O2 Sat by Pulse Oximetry [ Anterior Bilateral Throughout] 07/09/20 07/09/20 07/09/20 01:15 01:30 01:45 Temperature Pulse Rate 119 H 109 H 131 H Pulse Rate [ From Monitor] Respiratory 29 H 28 H 26 H Rate Blood Pressure 115/49 122/55 115/51 O2 Sat by Pulse 92 93 97 Oximetry O2 Sat by Pulse Oximetry [ Anterior Bilateral Throughout] 07/09/20 07/09/20 07/09/20 02:00 02:15 02:30 Temperature Pulse Rate 113 H 108 H 117 H Pulse Rate [ From Monitor] Respiratory 24 25 H 25 H Rate Blood Pressure 107/47 96/47 102/49 O2 Sat by Pulse 97 97 97 Oximetry O2 Sat by Pulse Oximetry [ Anterior Bilateral Throughout] 07/09/20 07/09/20 07/09/20 02:45 03:00 03:15 Temperature Pulse Rate 114 H 113 H 109 H Pulse Rate [ From Monitor] Respiratory 25 H 25 H 25 H Rate Blood Pressure 100/46 90/47 88/50 O2 Sat by Pulse 95 95 96 Oximetry O2 Sat by Pulse Oximetry [ Anterior Bilateral Throughout] 07/09/20 07/09/20 07/09/20 03:30 03:45 03:55 Temperature 99.4 F Pulse Rate 102 H 103 H Pulse Rate [ From Monitor] Respiratory 26 H 25 H Rate Blood Pressure 94/50 93/51 O2 Sat by Pulse 96 96 Oximetry O2 Sat by Pulse Oximetry [ Anterior Bilateral Throughout] 07/09/20 07/09/20 07/09/20 04:00 04:15 04:30 Temperature Pulse Rate 103 H 114 H 99 H Pulse Rate [ 99 H From Monitor] Respiratory 25 H 25 H 25 H Rate Blood Pressure 87/50 94/52 94/49 O2 Sat by Pulse 97 98 98 Oximetry O2 Sat by Pulse Oximetry [ Anterior Bilateral Throughout] 07/09/20 07/09/20 07/09/20 04:45 04:50 05:00 Temperature Pulse Rate 100 H 98 H 113 H Pulse Rate [ From Monitor] Respiratory 25 H 25 H Rate Blood Pressure 94/51 94/49 96/47 O2 Sat by Pulse 94 95 95 Oximetry O2 Sat by Pulse Oximetry [ Anterior Bilateral Throughout] 07/09/20 07/09/20 07/09/20 05:15 05:30 05:45 Temperature Pulse Rate 102 H 100 H 112 H Pulse Rate [ From Monitor] Respiratory 25 H 25 H 25 H Rate Blood Pressure 93/49 93/49 89/49 O2 Sat by Pulse 93 93 94 Oximetry O2 Sat by Pulse Oximetry [ Anterior Bilateral Throughout] 07/09/20 07/09/20 07/09/20 06:00 06:15 06:30 Temperature Pulse Rate 102 H 115 H 108 H Pulse Rate [ From Monitor] Respiratory 25 H 25 H 25 H Rate Blood Pressure 99/51 101/49 107/51 O2 Sat by Pulse 93 93 95 Oximetry O2 Sat by Pulse Oximetry [ Anterior Bilateral Throughout] 07/09/20 07/09/20 07/09/20 06:45 07:00 07:15 Temperature Pulse Rate 102 H 109 H 95 H Pulse Rate [ From Monitor] Respiratory 25 H 25 H 25 H Rate Blood Pressure 96/49 102/52 94/52 O2 Sat by Pulse 93 93 92 Oximetry O2 Sat by Pulse Oximetry [ Anterior Bilateral Throughout] 07/09/20 07/09/20 07/09/20 07:30 07:45 08:00 Temperature 98.9 F Pulse Rate 111 H 114 H 117 H Pulse Rate [ From Monitor] Respiratory 25 H 25 H 27 H Rate Blood Pressure 103/54 105/54 105/54 O2 Sat by Pulse 93 93 93 Oximetry O2 Sat by Pulse 95 Oximetry [ Anterior Bilateral Throughout] 07/09/20 07/09/20 07/09/20 08:07 08:15 08:30 Temperature Pulse Rate 114 H 114 H 132 H Pulse Rate [ From Monitor] Respiratory 26 H 27 H Rate Blood Pressure 149/79 148/64 147/61 O2 Sat by Pulse 88 97 98 Oximetry O2 Sat by Pulse Oximetry [ Anterior Bilateral Throughout] 07/09/20 07/09/20 07/09/20 08:45 09:00 09:15 Temperature Pulse Rate 120 H 117 H 111 H Pulse Rate [ From Monitor] Respiratory 24 Rate Blood Pressure 136/60 126/62 120/60 O2 Sat by Pulse 96 Oximetry O2 Sat by Pulse Oximetry [ Anterior Bilateral Throughout] 07/09/20 07/09/20 09:30 09:45 Temperature Pulse Rate 118 H 121 H Pulse Rate [ From Monitor] Respiratory Rate Blood Pressure 116/53 108/55 O2 Sat by Pulse Oximetry O2 Sat by Pulse Oximetry [ Anterior Bilateral Throughout] - Lab 07/08/20 04:00 07/08/20 04:00 Most recent lab results ABG pH 7.361 (7.320-7.450) 07/09/20 05:10 ABG pCO2 56.4 mm Hg 07/05/20 04:30 ABG pO2 151.9 mm Hg (80.0-90.0) H 07/05/20 04:30 ABG HCO3 26.8 mmol/L (20.0-26.0) H 07/05/20 04:30 ABG O2 Saturation 98.7 % (95.0-99.0) 07/05/20 04:30 Calcium 7.9 mg/dL (8.4-10.2) L 07/08/20 04:00 Phosphorus 9.40 mg/dL (2.5-4.5) H 06/30/20 03:50 Magnesium 2.70 mg/dL (1.7-2.3) H 06/18/20 20:33 Urine Creatinine 192.4 mg/dL (0.1-20.0) H 06/18/20 15:00 Urine Sodium 28 mmol/L 06/18/20 15:00 Medications & Allergies - Medications Allergies/Adverse Reactions: Allergies No Known Allergies Allergy (Unverified 06/17/20 14:24) Home Medications: Home Medications Medication Instructions Recorded Confirmed Last Taken Type Losartan/Hydrochlorothiazide 1 each PO QDAY 06/19/20 06/19/20 Unknown History [Losartan-Hctz 100-25 mg Tab] amLODIPine [Norvasc] 5 mg PO DAILY 06/19/20 06/19/20 Unknown History Active Medications: Generic Name Dose Route Start Last Admin Trade Name Freq PRN Reason Stop Dose Admin Acetaminophen 650 mg 06/17/20 14:17 07/03/20 09:16 Acetaminophen 325 Mg Tab PO 650 mg Q4H PRN Administration Pain MILD(1-3)/Fever >100.5/ROBERTS Amiodarone HCl 200 mg 07/08/20 12:30 07/09/20 09:21 Amiodarone 200 Mg Tab PO 200 mg BID CONNOR Administration Lipase/Protease/Amylase 1 each 06/19/20 12:15 Lipase 10,500/Protease 25,000/Amylase 43,750 (Units) Dr Kulkarni FEEDTUBE PRN PRN For Clogged Feeding Tube Ascorbic Acid 250 mg 06/17/20 22:00 07/09/20 09:22 Ascorbic Acid 250 Mg Tab PO 250 mg BID CONNOR Administration Cholecalciferol 1,000 unit 06/18/20 10:00 07/09/20 09:21 Cholecalciferol (Vit D3) 1000 Unit (25 Mcg) Tab PO 1,000 unit DAILY CONNOR Administration Dexamethasone 6 mg 07/03/20 14:00 07/09/20 09:21 Dexamethasone 4 Mg/Ml Vial IV 07/13/20 13:59 6 mg DAILY CONNOR Administration Docusate Sodium 100 mg 06/23/20 15:00 07/09/20 09:25 Docusate Sodium 100 Mg/10 Ml Oral Liqd FEEDTUBE Not Given BID CONNOR Famotidine 20 mg 06/20/20 11:00 07/09/20 09:21 Famotidine 20 Mg/2 Ml Inj IV 20 mg DAILY CONNOR Administration Fentanyl 50 mcg 06/18/20 01:02 07/09/20 00:20 Fentanyl 100 Mcg/2 Ml Inj IV 50 mcg Q10MIN PRN Administration ANALGESIA Heparin Sodium (Porcine) 5,000 unit 06/22/20 12:53 06/30/20 13:36 Heparin 10,000 Unit/1 Ml Vial IV 5,000 unit PAM PRN Administration hemodialysis Heparin Sodium (Porcine) 5,000 unit 07/03/20 22:00 07/09/20 09:04 Heparin 5,000 Unit/1 Ml Vial SUB-Q Not Given Q8HR [facility] Hydrophilic Ointment 1 applic 06/17/20 22:52 07/02/20 20:45 Lip Therapy Vaseline TP 1 applic Q2HR PRN Administration Dry Lips Propofol 1,000 mg in 100 mls @ 3.402 mls/hr 06/18/20 01:00 07/09/20 05:59 Diprivan 10 Mg/Ml IV 10 mcg/kg/min TITR CONNOR 6.804 mls/hr Administration Protocol 5 MCG/KG/MIN Fentanyl Citrate 2,000 mcg in 100 mls @ 5.67 mls/hr 06/18/20 02:00 07/09/20 09:23 Fentanyl Drip Premix IV 4 mcg/kg/hr TITR CONNOR 22.68 mls/hr Administration Protocol 1 MCG/KG/HR Sodium Chloride 500 mls @ 1 mls/hr 06/18/20 09:38 06/19/20 21:37 Nacl 0.9% 500 Ml IV 0 mls/hr DIRECT PRN Infusion ARTERIAL LINE FLUSH Norepinephrine 4 mg in 250 mls @ 7.5 mls/hr 07/08/20 02:06 07/08/20 18:15 Levophed Drip 4 Mg/Ns 250 Ml IV 2 mcg/min TITR CONNOR 7.5 mls/hr Titration Protocol 2 MCG/MIN Sodium Chloride 100 mls @ 999 mls/hr 07/08/20 12:19 Nacl 0.9% IV PAM PRN Hypotension Insulin Human Regular 0 units 06/18/20 12:00 07/09/20 05:32 Insulin Regular, Human 100 Units/1 Ml SUB-Q Not Given Q6HR [facility] Protocol Multi-Ingred Cream/Lotion/Oil/Oint 1 applic 06/17/20 22:52 Mineral Oil/Petrolatum, White Ophth Oint 3.5 Gm OU Q4HR PRN Dry Eye(s) Ondansetron HCl 4 mg 06/17/20 14:17 Ondansetron 4 Mg/2 Ml Inj IV Q8H PRN Nausea And Vomiting Polyethylene Glycol 17 gm 06/23/20 15:00 07/09/20 09:21 Polyethylene Glycol 3350 17 Gm Powder PO 17 gm QDAY CONNOR Administration Quetiapine Fumarate 200 mg 06/28/20 13:00 07/09/20 09:21 Quetiapine 200 Mg Tab PO 200 mg BID CONNOR Administration Simple Syrup 15 ml 06/19/20 12:15 Simple Syrup 15 Ml FEEDTUBE PRN PRN Hypoglycemia Simple Syrup 30 ml 06/19/20 12:15 Simple Syrup 15 Ml FEEDTUBE PRN PRN Hypoglycemia Sodium Bicarbonate 325 mg 06/19/20 12:15 Sodium Bicarbonate 325 Mg Tab FEEDTUBE PRN PRN For Clogged Feeding Tube Sodium Bicarbonate 650 mg 07/04/20 10:00 07/09/20 09:21 Sodium Bicarbonate 650 Mg Tab PO 650 mg TID CONNOR Administration Sodium Chloride 10 ml 06/17/20 22:00 07/09/20 09:23 Sodium Chloride 0.9% 10 Ml Flush Syringe IV 10 ml BID CONNOR Administration Sodium Chloride 10 ml 06/17/20 14:17 Sodium Chloride 0.9% 10 Ml Flush Syringe IV PRN PRN LINE FLUSH Sodium Polystyrene Sulfonate 15 gm 07/03/20 11:19 07/05/20 10:36 Sodium Polystyrene 15 Gm/60 Ml Oral Liqd PO 15 gm Q6HR PRN Administration Hyperkalemia Zinc Sulfate 220 mg 06/17/20 22:00 07/09/20 09:23 Zinc Sulfate 220 Mg Cap PO 220 mg BID CONNOR Administration
[2020-07-09] MEDS: NORepinephrine/NS 4 MG-250 ML 4 MG/250 ML BAG IV SCH (11:44)
--- NOTE | 2020-07-09 14:21 | Progress Note ---
Assessment and Plan Acute hypoxemic respiratory failure due to COVID-19 Severe COVID infection Severe Sepsis with shock Bilateral pneumonia Acute kidney injury (GIRISH) with acute tubular necrosis (ATN) Elevated liver enzymes Obesity - will conference with his and daughters tomorrow - will repeat CXR in am - will repeat ABG at 9 pm tonight and addres - nephrology input sincerely appreciated - continue care as below otherwise; - therapeutic anticoagulation remains on hold - continue HD/UF per nephrology prescription for toxin and volume clearance - keep peep at 14 - complete dexamethasone dosing re: worsening acidosis & continued positive status while trending serum inflamatory markers - continue daily SAT's & SBT's as tolerated - continue tube feeds and advance to goal rate as tolerated - continue HD/UF per nephrology team for toxin and volume clearance - continue bowel regimen - rate control per cardiology team for afib RVR - Continue to wean supplemental oxygen for O2 sats >92% - Monitor blood pressure closely while optimizing sedation,wean vasopressor support for MAP > 65 mmHg - Critical care prone positioning - VAP bundle addressed, aspiration precautions HOB >40 - continue lung protective strategies, permissive hypercapnic acceptable. - continue bronchodilators with pulmonary hygiene per RT - wean per pulmonary driven protocols otherwise - accuchecks with glycemic control per SSI (While critically ill target blood glucose of 140-180 mg/dL; avoid hypoglycemia) - sedation prn for target RASS -1 to -2 - continue enteral nutritional support at goal rate as tolerated - s/p antibiotics per ID recommendations - Monitor liver function test ,avoid hepatotoxic agents - azotemia per nephrology rec's - Avoid nephrotoxins, renally dose all medications, conservative fluid management - continue to avoid benzodiazepines, reduce the possibility of delirium, - prn analgesia per CPOT score - Maintenance of sleep-wake cycle, avoid delirium - Stress ulcer prophylaxis, Famotidine - PT/OT/ROM exercises - Mobility protocols for pressure ulcer prevention - CXR, ABG in am - CBC, CMP in am - Supportive transfusions to keep HgB >7g/dL - Monitor hemodynamics closely - continue other care per attending / other consultants COVID SPECIFIC INTERVENTIONS - continue steroids: Dexamethasone - continue with Remdesivir - monitor inflammatory markers - ferritin, D-dimer, CRP, LDH per facility protoc ol - continue anticoagulation per System Protocol based on d-dimer - continue contact and airborne isolation CONDITION: CRITICAL PROGNOSIS: GUARDED CODE STATUS: FULL CODE The high probability of a clinically significant, sudden or life-threatening deterioration of the [respiratory, cardiovascular, hematologic & neurologic] system(s) required my full and direct attention, intervention and personal management. The aggregate critical care time was [35] minutes without overlap. Time includes spent on; [x] Data Review and interpretation [x] Patient assessment and monitoring of vital signs [x] Documentation [x] Medication orders and management He was evaluated in the context of the global COVID-19 pandemic, which necessitated consideration that the patient might be at risk for infection with the virus that causes COVID-19. Institutional protocols and algorithms that pertain to the evaluation of patients at risk for COVID-19 are in a state of rapid change based on information released by regulatory bodies including the CDC and federal and state organizations. These policies and algorithms were followed during the patient's care in the ICU Please note that these policies, procedures and recommendations changed on a rapid basis. Subjective Date of service: 07/09/20 Principal diagnosis: ARF; Septic Shock; COVID-19 PNA; Atrial fibrillation; Obesity Interval history: Patient is seen today for: Ac hypoxemic respiratory failure; COVID-19; Severe Sepsis with shock; Zackery. pneumonia; GIRISH; Elevated liver enzymes; Obesity Seen and examined at bedside; 24hour events reviewed; nursing and respiratory care staff consulted; no adverse overnight events reported to me; resting in bed; remains on MVS; AMS is persistent; FiO2 increased to 100% prior to dialysis but weaned back down to 80%; agitated moving extremities & head during SAT's but not following commands; no gross bleeding and no seizures Objective Vital Signs - 12hr 07/09/20 07/09/20 07/09/20 02:30 02:45 03:00 Temperature Pulse Rate 117 H 114 H 113 H Pulse Rate [ From Monitor] Respiratory 25 H 25 H 25 H Rate Blood Pressure 102/49 100/46 90/47 O2 Sat by Pulse 97 95 95 Oximetry O2 Sat by Pulse Oximetry [ Anterior Bilateral Throughout] 07/09/20 07/09/20 07/09/20 03:15 03:30 03:45 Temperature Pulse Rate 109 H 102 H 103 H Pulse Rate [ From Monitor] Respiratory 25 H 26 H 25 H Rate Blood Pressure 88/50 94/50 93/51 O2 Sat by Pulse 96 96 96 Oximetry O2 Sat by Pulse Oximetry [ Anterior Bilateral Throughout] 07/09/20 07/09/20 07/09/20 03:55 04:00 04:15 Temperature 99.4 F Pulse Rate 103 H 114 H Pulse Rate [ 99 H From Monitor] Respiratory 25 H 25 H Rate Blood Pressure 87/50 94/52 O2 Sat by Pulse 97 98 Oximetry O2 Sat by Pulse Oximetry [ Anterior Bilateral Throughout] 07/09/20 07/09/20 07/09/20 04:30 04:45 04:50 Temperature Pulse Rate 99 H 100 H 98 H Pulse Rate [ From Monitor] Respiratory 25 H 25 H Rate Blood Pressure 94/49 94/51 94/49 O2 Sat by Pulse 98 94 95 Oximetry O2 Sat by Pulse Oximetry [ Anterior Bilateral Throughout] 07/09/20 07/09/20 07/09/20 05:00 05:15 05:30 Temperature Pulse Rate 113 H 102 H 100 H Pulse Rate [ From Monitor] Respiratory 25 H 25 H 25 H Rate Blood Pressure 96/47 93/49 93/49 O2 Sat by Pulse 95 93 93 Oximetry O2 Sat by Pulse Oximetry [ Anterior Bilateral Throughout] 07/09/20 07/09/20 07/09/20 05:45 06:00 06:15 Temperature Pulse Rate 112 H 102 H 115 H Pulse Rate [ From Monitor] Respiratory 25 H 25 H 25 H Rate Blood Pressure 89/49 99/51 101/49 O2 Sat by Pulse 94 93 93 Oximetry O2 Sat by Pulse Oximetry [ Anterior Bilateral Throughout] 07/09/20 07/09/20 07/09/20 06:30 06:45 07:00 Temperature Pulse Rate 108 H 102 H 109 H Pulse Rate [ From Monitor] Respiratory 25 H 25 H 25 H Rate Blood Pressure 107/51 96/49 102/52 O2 Sat by Pulse 95 93 93 Oximetry O2 Sat by Pulse Oximetry [ Anterior Bilateral Throughout] 07/09/20 07/09/20 07/09/20 07:15 07:30 07:45 Temperature Pulse Rate 95 H 111 H 114 H Pulse Rate [ From Monitor] Respiratory 25 H 25 H 25 H Rate Blood Pressure 94/52 103/54 105/54 O2 Sat by Pulse 92 93 93 Oximetry O2 Sat by Pulse Oximetry [ Anterior Bilateral Throughout] 07/09/20 07/09/20 07/09/20 08:00 08:07 08:15 Temperature 98.9 F Pulse Rate 117 H 114 H 114 H Pulse Rate [ From Monitor] Respiratory 27 H 26 H Rate Blood Pressure 105/54 149/79 148/64 O2 Sat by Pulse 93 88 97 Oximetry O2 Sat by Pulse 95 Oximetry [ Anterior Bilateral Throughout] 07/09/20 07/09/20 07/09/20 08:30 08:45 09:00 Temperature Pulse Rate 132 H 120 H 125 H Pulse Rate [ From Monitor] Respiratory 27 H 24 33 H Rate Blood Pressure 147/61 136/60 126/62 O2 Sat by Pulse 98 96 93 Oximetry O2 Sat by Pulse Oximetry [ Anterior Bilateral Throughout] 07/09/20 07/09/20 07/09/20 09:15 09:16 09:30 Temperature Pulse Rate 111 H 119 H 124 H Pulse Rate [ From Monitor] Respiratory 34 H 22 Rate Blood Pressure 120/60 120/60 116/53 O2 Sat by Pulse 93 89 Oximetry O2 Sat by Pulse Oximetry [ Anterior Bilateral Throughout] 07/09/20 07/09/20 07/09/20 09:45 10:00 10:15 Temperature Pulse Rate 118 H 115 H 118 H Pulse Rate [ From Monitor] Respiratory 36 H 26 H Rate Blood Pressure 108/55 110/48 91/46 O2 Sat by Pulse 87 95 Oximetry O2 Sat by Pulse Oximetry [ Anterior Bilateral Throughout] 07/09/20 07/09/20 07/09/20 10:16 10:30 10:45 Temperature Pulse Rate 126 H 115 H 120 H Pulse Rate [ From Monitor] Respiratory 20 21 24 Rate Blood Pressure 93/46 97/43 99/48 O2 Sat by Pulse 96 95 97 Oximetry O2 Sat by Pulse Oximetry [ Anterior Bilateral Throughout] 07/09/20 07/09/20 07/09/20 11:00 11:15 11:19 Temperature Pulse Rate 117 H 123 H Pulse Rate [ From Monitor] Respiratory 23 Rate Blood Pressure 109/48 109/56 109/56 O2 Sat by Pulse 96 97 Oximetry O2 Sat by Pulse Oximetry [ Anterior Bilateral Throughout] 07/09/20 07/09/20 07/09/20 11:30 11:45 11:59 Temperature 97.4 F L Pulse Rate 113 H 129 H 109 H Pulse Rate [ From Monitor] Respiratory 28 H Rate Blood Pressure 100/37 105/49 133/61 O2 Sat by Pulse Oximetry O2 Sat by Pulse 98 Oximetry [ Anterior Bilateral Throughout] 07/09/20 12:00 Temperature 98.4 F Pulse Rate Pulse Rate [ From Monitor] Respiratory Rate Blood Pressure O2 Sat by Pulse Oximetry O2 Sat by Pulse Oximetry [ Anterior Bilateral Throughout] Constitutional: appears uncomfortable, other (morbidly obese, atraumatic, normocephalic, mild resp distress, orally intuabted) Eyes: non-icteric ENT: oropharynx moist, other (ETT 24 cm TROY + blood crusted lips) Neck: supple, no lymphadenopathy, other (Large , short neck) Effort: mildly labored Ascultation: Bilateral: diminished breath sounds, rhonchi Percussion: Bilateral: not dull Cardiovascular: irregular rhythm, other (S1,S2) Gastrointestinal: normoactive bowel sounds, non-distended (protuberant), other (OG Tube) Integumentary: rash, other (Femoral CVC, Newell catheter) Extremities: no edema, pink and warm, pulses normal, no ischemia or petechiae, edema (trace to 1+) Neurologic: non-focal exam (grossly), pupils equal and round, other (unable to assess, sedated) Psychiatric: other (unable to assess, sedated) CBC and BMP: 07/08/20 04:00 07/08/20 04:00 ABG, PT/INR, D-dimer: ABG ABG pH 7.361 (7.320-7.450) 07/09/20 05:10 POC ABG pCO2 46.9 mmHg (32.0-48.0) 07/09/20 05:10 ABG pCO2 56.4 mm Hg 07/05/20 04:30 POC ABG pO2 76.1 mmHg (83-108) L 07/09/20 05:10 ABG pO2 151.9 mm Hg (80.0-90.0) H 07/05/20 04:30 POC ABG HCO3 26 07/09/20 05:10 ABG O2 Saturation 98.7 % (95.0-99.0) 07/05/20 04:30 PT/INR, D-dimer PT 17.4 Sec. (12.2-14.9) H 06/26/20 05:47 INR 1.44 (0.87-1.13) H 06/26/20 05:47 D-Dimer 6608.00 ng/mlDDU (0-234) H 07/03/20 14:50 Abnormal lab findings: Abnormal Labs 06/17/20 06/17/20 06/17/20 12:33 12:33 12:33 WBC 19.5 H RBC 5.18 H Hgb 15.5 H Hct MCHC RDW Lymph % (Auto) 3.8 L Lymph # (Auto) 0.7 L [place] # (Auto) Seg Neutrophils % Seg Neuts % (Manual) 99.0 H Lymphocytes % (Manual) 1.0 L Nucleated RBC % Seg Neutrophils # 18.2 H Seg Neutrophils # Man 19.3 H Lymphocytes # (Manual) 0.2 L Monocytes # (Manual) PT 16.5 H INR 1.33 H APTT D-Dimer 1025.04 H Heparin Anti-Xa Level ABG pH POC ABG pCO2 POC ABG pO2 ABG pO2 ABG HCO3 ABG Hemoglobin ABG Oxyhemoglobin ABG Sodium ABG Potassium ABG Chloride ABG Glucose Carboxyhemoglobin Sodium 130 L Potassium 3.4 L Chloride 95.0 L Carbon Dioxide BUN 21 H Creatinine Glucose 137 H POC Glucose Lactic Acid Calcium 7.9 L Phosphorus Magnesium Ferritin Direct Bilirubin AST 84 H ALT 67 H Lactate Dehydrogenase 437 H Total Creatine Kinase 310 H C-Reactive Protein 27.90 H Total Protein Albumin 2.9 L Triglycerides Arterial Blood Glucose Arterial Blood Ionized Calcium Urine Creatinine Urine Chloride Vancomycin Trough Coronavirus (PCR) Crossmatch 06/17/20 06/17/20 06/17/20 12:33 12:33 14:48 WBC RBC Hgb Hct MCHC RDW Lymph % (Auto) Lymph # (Auto) [place] # (Auto) Seg Neutrophils % Seg Neuts % (Manual) Lymphocytes % (Manual) Nucleated RBC % Seg Neutrophils # Seg Neutrophils # Man Lymphocytes # (Manual) Monocytes # (Manual) PT INR APTT D-Dimer Heparin Anti-Xa Level ABG pH POC ABG pCO2 POC ABG pO2 ABG pO2 ABG HCO3 ABG Hemoglobin ABG Oxyhemoglobin ABG Sodium ABG Potassium ABG Chloride ABG Glucose Carboxyhemoglobin Sodium Potassium Chloride Carbon Dioxide BUN Creatinine Glucose POC Glucose Lactic Acid 2.50 H* 2.20 H* Calcium Phosphorus Magnesium Ferritin 2297.0 H Direct Bilirubin AST ALT Lactate Dehydrogenase Total Creatine Kinase C-Reactive Protein Total Protein Albumin Triglycerides Arterial Blood Glucose Arterial Blood Ionized Calcium Urine Creatinine Urine Chloride Vancomycin Trough Coronavirus (PCR) Crossmatch 06/17/20 06/17/20 06/17/20 14:48 14:48 14:48 WBC RBC Hgb Hct MCHC RDW Lymph % (Auto) Lymph # (Auto) [place] # (Auto) Seg Neutrophils % Seg Neuts % (Manual) Lymphocytes % (Manual) Nucleated RBC % Seg Neutrophils # Seg Neutrophils # Man Lymphocytes # (Manual) Monocytes # (Manual) PT INR APTT D-Dimer 939.89 H Heparin Anti-Xa Level ABG pH POC ABG pCO2 POC ABG pO2 ABG pO2 ABG HCO3 ABG Hemoglobin ABG Oxyhemoglobin ABG Sodium ABG Potassium ABG Chloride ABG Glucose Carboxyhemoglobin Sodium Potassium Chloride Carbon Dioxide BUN Creatinine Glucose 141 H POC Glucose Lactic Acid Calcium Phosphorus Magnesium Ferritin > 2000.0 H Direct Bilirubin AST ALT Lactate Dehydrogenase 503 H Total Creatine Kinase C-Reactive Protein 24.70 H Total Protein Albumin Triglycerides Arterial Blood Glucose Arterial Blood Ionized Calcium Urine Creatinine Urine Chloride Vancomycin Trough Coronavirus (PCR) Crossmatch 06/17/20 06/17/20 06/17/20 16:54 19:39 23:43 WBC RBC Hgb Hct MCHC RDW Lymph % (Auto) Lymph # (Auto) [place] # (Auto) Seg Neutrophils % Seg Neuts % (Manual) Lymphocytes % (Manual) Nucleated RBC % Seg Neutrophils # Seg Neutrophils # Man Lymphocytes # (Manual) Monocytes # (Manual) PT INR APTT D-Dimer Heparin Anti-Xa Level ABG pH 7.571 H POC ABG pCO2 24.3 L POC ABG pO2 41.6 L ABG pO2 ABG HCO3 ABG Hemoglobin ABG Oxyhemoglobin 84.0 L ABG Sodium 131.0 L ABG Potassium ABG Chloride ABG Glucose 163 H Carboxyhemoglobin Sodium Potassium Chloride Carbon Dioxide BUN Creatinine Glucose POC Glucose 185 H Lactic Acid 2.10 H* Calcium Phosphorus Magnesium Ferritin Direct Bilirubin AST ALT Lactate Dehydrogenase Total Creatine Kinase C-Reactive Protein Total Protein Albumin Triglycerides Arterial Blood Glucose 163 H Arterial Blood Ionized Calcium 4.4 L Urine Creatinine Urine Chloride Vancomycin Trough Coronavirus (PCR) Crossmatch 06/18/20 06/18/20 06/18/20 00:17 00:23 03:55 WBC RBC Hgb Hct MCHC RDW Lymph % (Auto) Lymph # (Auto) [place] # (Auto) Seg Neutrophils % Seg Neuts % (Manual) Lymphocytes % (Manual) Nucleated RBC % Seg Neutrophils # Seg Neutrophils # Man Lymphocytes # (Manual) Monocytes # (Manual) PT INR APTT D-Dimer Heparin Anti-Xa Level ABG pH POC ABG pCO2 POC ABG pO2 56.5 L 48.3 L ABG pO2 ABG HCO3 ABG Hemoglobin ABG Oxyhemoglobin 86.3 L 81.7 L ABG Sodium 132.9 L 131.0 L ABG Potassium ABG Chloride ABG Glucose 189 H 161 H Carboxyhemoglobin 0.4 L Sodium Potassium Chloride Carbon Dioxide BUN Creatinine Glucose POC Glucose Lactic Acid 3.80 H* Calcium Phosphorus Magnesium Ferritin Direct Bilirubin AST ALT Lactate Dehydrogenase Total Creatine Kinase C-Reactive Protein Total Protein Albumin Triglycerides Arterial Blood Glucose 189 H 161 H Arterial Blood Ionized Calcium 4.3 L 4.2 L Urine Creatinine Urine Chloride Vancomycin Trough Coronavirus (PCR) Crossmatch 06/18/20 06/18/20 06/18/20 05:39 05:39 05:39 WBC 26.2 H RBC Hgb Hct MCHC RDW Lymph % (Auto) Lymph # (Auto) [place] # (Auto) Seg Neutrophils % Seg Neuts % (Manual) 90.0 H Lymphocytes % (Manual) 5.0 L Nucleated RBC % Seg Neutrophils # Seg Neutrophils # Man 23.6 H Lymphocytes # (Manual) Monocytes # (Manual) 1.3 H PT INR APTT D-Dimer Heparin Anti-Xa Level ABG pH POC ABG pCO2 POC ABG pO2 ABG pO2 ABG HCO3 ABG Hemoglobin ABG Oxyhemoglobin ABG Sodium ABG Potassium ABG Chloride ABG Glucose Carboxyhemoglobin Sodium 135 L Potassium Chloride 97.5 L Carbon Dioxide 21 L BUN 39 H Creatinine 1.7 H D Glucose 168 H POC Glucose Lactic Acid 3.40 H* Calcium 7.2 L Phosphorus Magnesium Ferritin Direct Bilirubin AST ALT Lactate Dehydrogenase Total Creatine Kinase C-Reactive Protein Total Protein Albumin Triglycerides Arterial Blood Glucose Arterial Blood Ionized Calcium Urine Creatinine Urine Chloride Vancomycin Trough Coronavirus (PCR) Crossmatch 06/18/20 06/18/20 06/18/20 07:24 09:00 10:10 WBC RBC Hgb Hct MCHC RDW Lymph % (Auto) Lymph # (Auto) [place] # (Auto) Seg Neutrophils % Seg Neuts % (Manual) Lymphocytes % (Manual) Nucleated RBC % Seg Neutrophils # Seg Neutrophils # Man Lymphocytes # (Manual) Monocytes # (Manual) PT INR APTT D-Dimer Heparin Anti-Xa Level ABG pH POC ABG pCO2 POC ABG pO2 ABG pO2 ABG HCO3 ABG Hemoglobin ABG Oxyhemoglobin ABG Sodium ABG Potassium ABG Chloride ABG Glucose Carboxyhemoglobin Sodium Potassium Chloride Carbon Dioxide BUN Creatinine Glucose POC Glucose Lactic Acid 2.90 H* 3.20 H* Calcium Phosphorus Magnesium Ferritin Direct Bilirubin AST ALT Lactate Dehydrogenase Total Creatine Kinase C-Reactive Protein Total Protein Albumin Triglycerides Arterial Blood Glucose Arterial Blood Ionized Calcium Urine Creatinine Urine Chloride Vancomycin Trough Coronavirus (PCR) Positive A Crossmatch 06/18/20 06/18/20 06/18/20 11:58 14:43 15:00 WBC RBC Hgb Hct MCHC RDW Lymph % (Auto) Lymph # (Auto) [place] # (Auto) Seg Neutrophils % Seg Neuts % (Manual) Lymphocytes % (Manual) Nucleated RBC % Seg Neutrophils # Seg Neutrophils # Man Lymphocytes # (Manual) Monocytes # (Manual) PT INR APTT D-Dimer Heparin Anti-Xa Level ABG pH 7.303 L POC ABG pCO2 POC ABG pO2 82.3 L ABG pO2 ABG HCO3 ABG Hemoglobin ABG Oxyhemoglobin ABG Sodium 135.3 L ABG Potassium ABG Chloride ABG Glucose 215 H Carboxyhemoglobin 0.3 L Sodium Potassium Chloride Carbon Dioxide BUN Creatinine Glucose POC Glucose 209 H Lactic Acid Calcium Phosphorus Magnesium Ferritin Direct Bilirubin AST ALT Lactate Dehydrogenase Total Creatine Kinase C-Reactive Protein Total Protein Albumin Triglycerides Arterial Blood Glucose 215 H Arterial Blood Ionized Calcium 4.2 L Urine Creatinine 192.4 H Urine Chloride 31.1 L Vancomycin Trough Coronavirus (PCR) Crossmatch 06/18/20 06/18/20 06/18/20 17:16 19:44 20:33 WBC RBC Hgb Hct MCHC RDW Lymph % (Auto) Lymph # (Auto) [place] # (Auto) Seg Neutrophils % Seg Neuts % (Manual) Lymphocytes % (Manual) Nucleated RBC % Seg Neutrophils # Seg Neutrophils # Man Lymphocytes # (Manual) Monocytes # (Manual) PT INR APTT D-Dimer Heparin Anti-Xa Level ABG pH POC ABG pCO2 POC ABG pO2 ABG pO2 ABG HCO3 ABG Hemoglobin ABG Oxyhemoglobin ABG Sodium ABG Potassium ABG Chloride ABG Glucose Carboxyhemoglobin Sodium Potassium Chloride Carbon Dioxide BUN Creatinine Glucose POC Glucose 182 H Lactic Acid 3.00 H* Calcium Phosphorus Magnesium 2.70 H Ferritin Direct Bilirubin AST ALT Lactate Dehydrogenase Total Creatine Kinase C-Reactive Protein Total Protein Albumin Triglycerides Arterial Blood Glucose Arterial Blood Ionized Calcium Urine Creatinine Urine Chloride Vancomycin Trough Coronavirus (PCR) Crossmatch 06/18/20 06/19/20 06/19/20 23:43 04:00 04:00 WBC 31.6 H RBC Hgb Hct MCHC RDW Lymph % (Auto) Lymph # (Auto) [place] # (Auto) Seg Neutrophils % Seg Neuts % (Manual) 98.0 H Lymphocytes % (Manual) 0.5 L Nucleated RBC % Seg Neutrophils # Seg Neutrophils # Man 31.0 H Lymphocytes # (Manual) 0.2 L Monocytes # (Manual) PT INR APTT D-Dimer Heparin Anti-Xa Level ABG pH POC ABG pCO2 POC ABG pO2 ABG pO2 ABG HCO3 ABG Hemoglobin ABG Oxyhemoglobin ABG Sodium ABG Potassium ABG Chloride ABG Glucose Carboxyhemoglobin Sodium Potassium Chloride Carbon Dioxide BUN 56 H Creatinine 1.6 H Glucose 176 H POC Glucose 149 H Lactic Acid Calcium 7.0 L Phosphorus Magnesium Ferritin Direct Bilirubin AST 244 H ALT 159 H Lactate Dehydrogenase Total Creatine Kinase C-Reactive Protein Total Protein 4.9 L D Albumin 2.5 L Triglycerides Arterial Blood Glucose Arterial Blood Ionized Calcium Urine Creatinine Urine Chloride Vancomycin Trough Coronavirus (PCR) Crossmatch 06/19/20 06/19/20 06/19/20 04:00 05:44 11:42 WBC RBC Hgb Hct MCHC RDW Lymph % (Auto) Lymph # (Auto) [place] # (Auto) Seg Neutrophils % Seg Neuts % (Manual) Lymphocytes % (Manual) Nucleated RBC % Seg Neutrophils # Seg Neutrophils # Man Lymphocytes # (Manual) Monocytes # (Manual) PT INR APTT D-Dimer Heparin Anti-Xa Level ABG pH 7.265 L POC ABG pCO2 51.8 H POC ABG pO2 65.1 L ABG pO2 ABG HCO3 ABG Hemoglobin ABG Oxyhemoglobin ABG Sodium ABG Potassium ABG Chloride ABG Glucose 184 H Carboxyhemoglobin Sodium Potassium Chloride Carbon Dioxide BUN Creatinine Glucose POC Glucose 156 H 191 H Lactic Acid Calcium Phosphorus Magnesium Ferritin Direct Bilirubin AST ALT Lactate Dehydrogenase Total Creatine Kinase C-Reactive Protein Total Protein Albumin Triglycerides Arterial Blood Glucose 184 H Arterial Blood Ionized Calcium 4.3 L Urine Creatinine Urine Chloride Vancomycin Trough Coronavirus (PCR) Crossmatch 06/19/20 06/19/20 06/19/20 12:30 17:16 18:36 WBC RBC Hgb Hct MCHC RDW Lymph % (Auto) Lymph # (Auto) [place] # (Auto) Seg Neutrophils % Seg Neuts % (Manual) Lymphocytes % (Manual) Nucleated RBC % Seg Neutrophils # Seg Neutrophils # Man Lymphocytes # (Manual) Monocytes # (Manual) PT 16.4 H INR 1.32 H APTT D-Dimer Heparin Anti-Xa Level ABG pH 7.088 L POC ABG pCO2 78.1 H POC ABG pO2 208.3 H ABG pO2 ABG HCO3 ABG Hemoglobin ABG Oxyhemoglobin 98.3 H ABG Sodium ABG Potassium 5.0 H ABG Chloride ABG Glucose 182 H Carboxyhemoglobin 0.4 L Sodium Potassium Chloride Carbon Dioxide BUN Creatinine Glucose POC Glucose 154 H Lactic Acid Calcium Phosphorus Magnesium Ferritin Direct Bilirubin AST ALT Lactate Dehydrogenase Total Creatine Kinase C-Reactive Protein Total Protein Albumin Triglycerides Arterial Blood Glucose 182 H Arterial Blood Ionized Calcium 4.3 L Urine Creatinine Urine Chloride Vancomycin Trough Coronavirus (PCR) Crossmatch 06/19/20 06/20/20 06/20/20 23:32 03:00 05:19 WBC RBC Hgb Hct MCHC RDW Lymph % (Auto) Lymph # (Auto) [place] # (Auto) Seg Neutrophils % Seg Neuts % (Manual) Lymphocytes % (Manual) Nucleated RBC % Seg Neutrophils # Seg Neutrophils # Man Lymphocytes # (Manual) Monocytes # (Manual) PT INR APTT D-Dimer Heparin Anti-Xa Level 0.77 H ABG pH POC ABG pCO2 POC ABG pO2 ABG pO2 ABG HCO3 ABG Hemoglobin ABG Oxyhemoglobin ABG Sodium ABG Potassium ABG Chloride ABG Glucose Carboxyhemoglobin Sodium Potassium Chloride Carbon Dioxide BUN Creatinine Glucose POC Glucose 201 H 190 H Lactic Acid Calcium Phosphorus Magnesium Ferritin Direct Bilirubin AST ALT Lactate Dehydrogenase Total Creatine Kinase C-Reactive Protein Total Protein Albumin Triglycerides Arterial Blood Glucose Arterial Blood Ionized Calcium Urine Creatinine Urine Chloride Vancomycin Trough Coronavirus (PCR) Crossmatch 06/20/20 06/20/20 06/20/20 08:25 08:25 11:36 WBC RBC Hgb Hct MCHC RDW Lymph % (Auto) Lymph # (Auto) [place] # (Auto) Seg Neutrophils % Seg Neuts % (Manual) Lymphocytes % (Manual) Nucleated RBC % Seg Neutrophils # Seg Neutrophils # Man Lymphocytes # (Manual) Monocytes # (Manual) PT INR APTT D-Dimer Heparin Anti-Xa Level ABG pH POC ABG pCO2 POC ABG pO2 ABG pO2 ABG HCO3 ABG Hemoglobin ABG Oxyhemoglobin ABG Sodium ABG Potassium ABG Chloride ABG Glucose Carboxyhemoglobin Sodium 135 L Potassium 5.4 H Chloride 109.2 H Carbon Dioxide 19 L BUN 68 H Creatinine 2.5 H D Glucose 201 H POC Glucose 184 H Lactic Acid Calcium 5.5 L* D Phosphorus Magnesium Ferritin Direct Bilirubin AST 123 H ALT 86 H Lactate Dehydrogenase Total Creatine Kinase C-Reactive Protein Total Protein 4.6 L Albumin 1.5 L Triglycerides Arterial Blood Glucose Arterial Blood Ionized Calcium Urine Creatinine Urine Chloride Vancomycin Trough 22.7 H Coronavirus (PCR) Crossmatch 06/20/20 06/20/20 06/20/20 11:40 17:28 20:00 WBC RBC Hgb Hct MCHC RDW Lymph % (Auto) Lymph # (Auto) [place] # (Auto) Seg Neutrophils % Seg Neuts % (Manual) Lymphocytes % (Manual) Nucleated RBC % Seg Neutrophils # Seg Neutrophils # Man Lymphocytes # (Manual) Monocytes # (Manual) PT INR APTT D-Dimer Heparin Anti-Xa Level 0.89 H ABG pH 7.099 L POC ABG pCO2 61.1 H POC ABG pO2 ABG pO2 ABG HCO3 ABG Hemoglobin ABG Oxyhemoglobin ABG Sodium ABG Potassium 5.0 H ABG Chloride 111.0 H ABG Glucose 200 H Carboxyhemoglobin 0.4 L Sodium Potassium Chloride Carbon Dioxide BUN Creatinine Glucose POC Glucose 165 H Lactic Acid Calcium Phosphorus Magnesium Ferritin Direct Bilirubin AST ALT Lactate Dehydrogenase Total Creatine Kinase C-Reactive Protein Total Protein Albumin Triglycerides Arterial Blood Glucose 200 H Arterial Blood Ionized Calcium 4.2 L Urine Creatinine Urine Chloride Vancomycin Trough Coronavirus (PCR) Crossmatch 06/20/20 06/21/20 06/21/20 23:29 05:00 05:20 WBC RBC Hgb Hct MCHC RDW Lymph % (Auto) Lymph # (Auto) [place] # (Auto) Seg Neutrophils % Seg Neuts % (Manual) Lymphocytes % (Manual) Nucleated RBC % Seg Neutrophils # Seg Neutrophils # Man Lymphocytes # (Manual) Monocytes # (Manual) PT INR APTT D-Dimer Heparin Anti-Xa Level ABG pH POC ABG pCO2 POC ABG pO2 ABG pO2 ABG HCO3 ABG Hemoglobin ABG Oxyhemoglobin ABG Sodium ABG Potassium ABG Chloride ABG Glucose Carboxyhemoglobin Sodium Potassium Chloride 112.0 H Carbon Dioxide 20 L BUN 92 H Creatinine 3.9 H D Glucose 214 H POC Glucose 145 H 191 H Lactic Acid Calcium 6.5 L D Phosphorus Magnesium Ferritin Direct Bilirubin AST 98 H ALT 84 H Lactate Dehydrogenase Total Creatine Kinase C-Reactive Protein Total Protein 4.6 L Albumin 2.1 L Triglycerides 180 H Arterial Blood Glucose Arterial Blood Ionized Calcium Urine Creatinine Urine Chloride Vancomycin Trough Coronavirus (PCR) Crossmatch 06/21/20 06/21/20 06/21/20 08:56 11:12 12:43 WBC RBC Hgb Hct MCHC RDW Lymph % (Auto) Lymph # (Auto) [place] # (Auto) Seg Neutrophils % Seg Neuts % (Manual) Lymphocytes % (Manual) Nucleated RBC % Seg Neutrophils # Seg Neutrophils # Man Lymphocytes # (Manual) Monocytes # (Manual) PT INR APTT D-Dimer Heparin Anti-Xa Level 0.28 L ABG pH 7.184 L POC ABG pCO2 48.3 H POC ABG pO2 172.1 H ABG pO2 ABG HCO3 ABG Hemoglobin ABG Oxyhemoglobin 98.7 H ABG Sodium ABG Potassium 4.9 H ABG Chloride 112.0 H ABG Glucose 196 H Carboxyhemoglobin 0.2 L Sodium Potassium Chloride Carbon Dioxide BUN Creatinine Glucose POC Glucose 177 H Lactic Acid Calcium Phosphorus Magnesium Ferritin Direct Bilirubin AST ALT Lactate Dehydrogenase Total Creatine Kinase C-Reactive Protein Total Protein Albumin Triglycerides Arterial Blood Glucose 196 H Arterial Blood Ionized Calcium 4.1 L Urine Creatinine Urine Chloride Vancomycin Trough Coronavirus (PCR) Crossmatch 06/21/20 06/21/20 06/22/20 16:31 Unknown 00:12 WBC RBC Hgb Hct MCHC RDW Lymph % (Auto) Lymph # (Auto) [place] # (Auto) Seg Neutrophils % Seg Neuts % (Manual) Lymphocytes % (Manual) Nucleated RBC % Seg Neutrophils # Seg Neutrophils # Man Lymphocytes # (Manual) Monocytes # (Manual) PT INR APTT D-Dimer Heparin Anti-Xa Level 0.78 H ABG pH POC ABG pCO2 POC ABG pO2 ABG pO2 ABG HCO3 ABG Hemoglobin ABG Oxyhemoglobin ABG Sodium ABG Potassium ABG Chloride ABG Glucose Carboxyhemoglobin Sodium Potassium Chloride Carbon Dioxide BUN Creatinine Glucose POC Glucose 150 H 173 H Lactic Acid Calcium Phosphorus Magnesium Ferritin Direct Bilirubin AST ALT Lactate Dehydrogenase Total Creatine Kinase C-Reactive Protein Total Protein Albumin Triglycerides Arterial Blood Glucose Arterial Blood Ionized Calcium Urine Creatinine Urine Chloride Vancomycin Trough Coronavirus (PCR) Crossmatch 06/22/20 06/22/20 06/22/20 04:00 05:04 05:30 WBC 33.9 H RBC Hgb 11.7 L Hct 35.2 L MCHC RDW 15.8 H Lymph % (Auto) Lymph # (Auto) [place] # (Auto) Seg Neutrophils % Seg Neuts % (Manual) 93.0 H Lymphocytes % (Manual) 5.0 L Nucleated RBC % Seg Neutrophils # Seg Neutrophils # Man 31.5 H Lymphocytes # (Manual) Monocytes # (Manual) PT INR APTT D-Dimer Heparin Anti-Xa Level ABG pH 7.169 L POC ABG pCO2 POC ABG pO2 ABG pO2 ABG HCO3 ABG Hemoglobin ABG Oxyhemoglobin ABG Sodium ABG Potassium 5.1 H ABG Chloride 112.0 H ABG Glucose 186 H Carboxyhemoglobin 0.3 L Sodium Potassium Chloride Carbon Dioxide BUN Creatinine Glucose POC Glucose 161 H Lactic Acid Calcium Phosphorus Magnesium Ferritin Direct Bilirubin AST ALT Lactate Dehydrogenase Total Creatine Kinase C-Reactive Protein Total Protein Albumin Triglycerides Arterial Blood Glucose 186 H Arterial Blood Ionized Calcium 4.1 L Urine Creatinine Urine Chloride Vancomycin Trough Coronavirus (PCR) Crossmatch 06/22/20 06/22/20 06/22/20 05:30 11:39 13:27 WBC RBC Hgb Hct MCHC RDW Lymph % (Auto) Lymph # (Auto) [place] # (Auto) Seg Neutrophils % Seg Neuts % (Manual) Lymphocytes % (Manual) Nucleated RBC % Seg Neutrophils # Seg Neutrophils # Man Lymphocytes # (Manual) Monocytes # (Manual) PT INR APTT D-Dimer Heparin Anti-Xa Level ABG pH POC ABG pCO2 POC ABG pO2 ABG pO2 ABG HCO3 ABG Hemoglobin ABG Oxyhemoglobin ABG Sodium ABG Potassium ABG Chloride ABG Glucose Carboxyhemoglobin Sodium Potassium 5.7 H Chloride 111.3 H Carbon Dioxide 18 L BUN 112 H Creatinine 5.0 H Glucose 173 H POC Glucose 172 H 176 H Lactic Acid Calcium 6.7 L Phosphorus Magnesium Ferritin Direct Bilirubin AST ALT Lactate Dehydrogenase Total Creatine Kinase C-Reactive Protein Total Protein Albumin Triglycerides Arterial Blood Glucose Arterial Blood Ionized Calcium Urine Creatinine Urine Chloride Vancomycin Trough Coronavirus (PCR) Crossmatch 06/22/20 06/22/20 06/22/20 14:37 17:00 17:40 WBC RBC Hgb Hct MCHC RDW Lymph % (Auto) Lymph # (Auto) [place] # (Auto) Seg Neutrophils % Seg Neuts % (Manual) Lymphocytes % (Manual) Nucleated RBC % Seg Neutrophils # Seg Neutrophils # Man Lymphocytes # (Manual) Monocytes # (Manual) PT INR APTT D-Dimer Heparin Anti-Xa Level 1.32 H ABG pH POC ABG pCO2 POC ABG pO2 ABG pO2 ABG HCO3 ABG Hemoglobin ABG Oxyhemoglobin ABG Sodium ABG Potassium ABG Chloride ABG Glucose Carboxyhemoglobin Sodium Potassium Chloride Carbon Dioxide BUN Creatinine Glucose POC Glucose 171 H Lactic Acid Calcium Phosphorus Magnesium Ferritin Direct Bilirubin AST ALT Lactate Dehydrogenase Total Creatine Kinase C-Reactive Protein 5.30 H Total Protein Albumin Triglycerides Arterial Blood Glucose Arterial Blood Ionized Calcium Urine Creatinine Urine Chloride Vancomycin Trough Coronavirus (PCR) Crossmatch 06/22/20 06/23/20 06/23/20 23:36 02:13 02:41 WBC RBC Hgb Hct MCHC RDW Lymph % (Auto) Lymph # (Auto) [place] # (Auto) Seg Neutrophils % Seg Neuts % (Manual) Lymphocytes % (Manual) Nucleated RBC % Seg Neutrophils # Seg Neutrophils # Man Lymphocytes # (Manual) Monocytes # (Manual) PT INR APTT D-Dimer Heparin Anti-Xa Level 0.21 L ABG pH 7.318 L POC ABG pCO2 POC ABG pO2 157.5 H ABG pO2 ABG HCO3 ABG Hemoglobin ABG Oxyhemoglobin ABG Sodium 135.6 L ABG Potassium 4.6 H ABG Chloride 110.0 H ABG Glucose 169 H Carboxyhemoglobin Sodium Potassium Chloride Carbon Dioxide BUN Creatinine Glucose POC Glucose 155 H Lactic Acid Calcium Phosphorus Magnesium Ferritin Direct Bilirubin AST ALT Lactate Dehydrogenase Total Creatine Kinase C-Reactive Protein Total Protein Albumin Triglycerides Arterial Blood Glucose 169 H Arterial Blood Ionized Calcium Urine Creatinine Urine Chloride Vancomycin Trough Coronavirus (PCR) Crossmatch 06/23/20 06/23/20 06/23/20 04:00 04:00 05:24 WBC 27.4 H RBC Hgb 11.3 L Hct 33.8 L MCHC RDW Lymph % (Auto) Lymph # (Auto) [place] # (Auto) Seg Neutrophils % Seg Neuts % (Manual) 93.0 H Lymphocytes % (Manual) 1.0 L Nucleated RBC % 1.0 H Seg Neutrophils # Seg Neutrophils # Man 25.5 H Lymphocytes # (Manual) 0.3 L Monocytes # (Manual) 1.1 H PT INR APTT D-Dimer Heparin Anti-Xa Level ABG pH POC ABG pCO2 POC ABG pO2 ABG pO2 ABG HCO3 ABG Hemoglobin ABG Oxyhemoglobin ABG Sodium ABG Potassium ABG Chloride ABG Glucose Carboxyhemoglobin Sodium Potassium Chloride 107.6 H Carbon Dioxide 20 L BUN 100 H Creatinine 4.7 H Glucose 168 H POC Glucose 151 H Lactic Acid Calcium Phosphorus Magnesium Ferritin Direct Bilirubin AST ALT Lactate Dehydrogenase Total Creatine Kinase C-Reactive Protein Total Protein Albumin Triglycerides Arterial Blood Glucose Arterial Blood Ionized Calcium Urine Creatinine Urine Chloride Vancomycin Trough Coronavirus (PCR) Crossmatch 06/23/20 06/23/20 06/23/20 11:30 17:18 23:50 WBC RBC Hgb Hct MCHC RDW Lymph % (Auto) Lymph # (Auto) [place] # (Auto) Seg Neutrophils % Seg Neuts % (Manual) Lymphocytes % (Manual) Nucleated RBC % Seg Neutrophils # Seg Neutrophils # Man Lymphocytes # (Manual) Monocytes # (Manual) PT INR APTT D-Dimer Heparin Anti-Xa Level ABG pH POC ABG pCO2 POC ABG pO2 ABG pO2 ABG HCO3 ABG Hemoglobin ABG Oxyhemoglobin ABG Sodium ABG Potassium ABG Chloride ABG Glucose Carboxyhemoglobin Sodium Potassium Chloride Carbon Dioxide BUN Creatinine Glucose POC Glucose 157 H 156 H 162 H Lactic Acid Calcium Phosphorus Magnesium Ferritin Direct Bilirubin AST ALT Lactate Dehydrogenase Total Creatine Kinase C-Reactive Protein Total Protein Albumin Triglycerides Arterial Blood Glucose Arterial Blood Ionized Calcium Urine Creatinine Urine Chloride Vancomycin Trough Coronavirus (PCR) Crossmatch 06/24/20 06/24/20 06/24/20 04:41 05:57 06:30 WBC 34.3 H RBC Hgb 10.9 L Hct 32.6 L MCHC RDW Lymph % (Auto) 2.0 L Lymph # (Auto) 0.7 L [place] # (Auto) 1.2 H Seg Neutrophils % Seg Neuts % (Manual) 96.0 H Lymphocytes % (Manual) 3.0 L Nucleated RBC % Seg Neutrophils # 32.3 H Seg Neutrophils # Man 32.9 H Lymphocytes # (Manual) 1.0 L Monocytes # (Manual) PT INR APTT D-Dimer Heparin Anti-Xa Level ABG pH POC ABG pCO2 POC ABG pO2 71.1 L ABG pO2 ABG HCO3 ABG Hemoglobin ABG Oxyhemoglobin 92.4 L ABG Sodium 115.6 L ABG Potassium ABG Chloride ABG Glucose 159 H Carboxyhemoglobin Sodium Potassium Chloride Carbon Dioxide BUN Creatinine Glucose POC Glucose 143 H Lactic Acid Calcium Phosphorus Magnesium Ferritin Direct Bilirubin AST ALT Lactate Dehydrogenase Total Creatine Kinase C-Reactive Protein Total Protein Albumin Triglycerides Arterial Blood Glucose 159 H Arterial Blood Ionized Calcium 4.2 L Urine Creatinine Urine Chloride Vancomycin Trough Coronavirus (PCR) Crossmatch 06/24/20 06/24/20 06/24/20 07:03 09:37 11:56 WBC RBC Hgb Hct MCHC RDW Lymph % (Auto) Lymph # (Auto) [place] # (Auto) Seg Neutrophils % Seg Neuts % (Manual) Lymphocytes % (Manual) Nucleated RBC % Seg Neutrophils # Seg Neutrophils # Man Lymphocytes # (Manual) Monocytes # (Manual) PT INR APTT D-Dimer Heparin Anti-Xa Level 0.26 L ABG pH POC ABG pCO2 POC ABG pO2 ABG pO2 ABG HCO3 ABG Hemoglobin ABG Oxyhemoglobin ABG Sodium ABG Potassium ABG Chloride ABG Glucose Carboxyhemoglobin Sodium Potassium 5.1 H Chloride Carbon Dioxide BUN 103 H Creatinine 5.0 H Glucose 163 H POC Glucose 149 H Lactic Acid Calcium 7.6 L Phosphorus Magnesium Ferritin Direct Bilirubin AST ALT Lactate Dehydrogenase Total Creatine Kinase C-Reactive Protein Total Protein Albumin Triglycerides Arterial Blood Glucose Arterial Blood Ionized Calcium Urine Creatinine Urine Chloride Vancomycin Trough Coronavirus (PCR) Crossmatch 06/24/20 06/25/20 06/25/20 18:09 01:05 03:00 WBC RBC Hgb 10.6 L Hct 32.1 L MCHC RDW Lymph % (Auto) Lymph # (Auto) [place] # (Auto) Seg Neutrophils % Seg Neuts % (Manual) Lymphocytes % (Manual) Nucleated RBC % Seg Neutrophils # Seg Neutrophils # Man Lymphocytes # (Manual) Monocytes # (Manual) PT INR APTT D-Dimer Heparin Anti-Xa Level ABG pH POC ABG pCO2 POC ABG pO2 ABG pO2 ABG HCO3 ABG Hemoglobin ABG Oxyhemoglobin ABG Sodium ABG Potassium ABG Chloride ABG Glucose Carboxyhemoglobin Sodium Potassium Chloride Carbon Dioxide BUN Creatinine Glucose POC Glucose 141 H 137 H Lactic Acid Calcium Phosphorus Magnesium Ferritin Direct Bilirubin AST ALT Lactate Dehydrogenase Total Creatine Kinase C-Reactive Protein Total Protein Albumin Triglycerides Arterial Blood Glucose Arterial Blood Ionized Calcium Urine Creatinine Urine Chloride Vancomycin Trough Coronavirus (PCR) Crossmatch 06/25/20 06/25/20 06/25/20 03:48 05:17 12:08 WBC RBC Hgb Hct MCHC RDW Lymph % (Auto) Lymph # (Auto) [place] # (Auto) Seg Neutrophils % Seg Neuts % (Manual) Lymphocytes % (Manual) Nucleated RBC % Seg Neutrophils # Seg Neutrophils # Man Lymphocytes # (Manual) Monocytes # (Manual) PT INR APTT D-Dimer Heparin Anti-Xa Level ABG pH POC ABG pCO2 29.4 L POC ABG pO2 67.1 L ABG pO2 ABG HCO3 ABG Hemoglobin 11.5 L ABG Oxyhemoglobin ABG Sodium 124.1 L ABG Potassium 4.6 H ABG Chloride ABG Glucose 159 H Carboxyhemoglobin Sodium Potassium Chloride Carbon Dioxide BUN Creatinine Glucose POC Glucose 149 H 150 H Lactic Acid Calcium Phosphorus Magnesium Ferritin Direct Bilirubin AST ALT Lactate Dehydrogenase Total Creatine Kinase C-Reactive Protein Total Protein Albumin Triglycerides Arterial Blood Glucose 159 H Arterial Blood Ionized Calcium 4.2 L Urine Creatinine Urine Chloride Vancomycin Trough Coronavirus (PCR) Crossmatch 06/25/20 06/25/20 06/25/20 16:27 16:35 17:27 WBC RBC Hgb Hct MCHC RDW Lymph % (Auto) Lymph # (Auto) [place] # (Auto) Seg Neutrophils % Seg Neuts % (Manual) Lymphocytes % (Manual) Nucleated RBC % Seg Neutrophils # Seg Neutrophils # Man Lymphocytes # (Manual) Monocytes # (Manual) PT INR APTT D-Dimer Heparin Anti-Xa Level < 0.10 L ABG pH POC ABG pCO2 POC ABG pO2 ABG pO2 ABG HCO3 ABG Hemoglobin ABG Oxyhemoglobin ABG Sodium ABG Potassium ABG Chloride ABG Glucose Carboxyhemoglobin Sodium Potassium Chloride Carbon Dioxide BUN Creatinine Glucose POC Glucose 143 H 156 H Lactic Acid Calcium Phosphorus Magnesium Ferritin Direct Bilirubin AST ALT Lactate Dehydrogenase Total Creatine Kinase C-Reactive Protein Total Protein Albumin Triglycerides Arterial Blood Glucose Arterial Blood Ionized Calcium Urine Creatinine Urine Chloride Vancomycin Trough Coronavirus (PCR) Crossmatch 06/25/20 06/25/20 06/25/20 20:00 20:55 23:10 WBC 32.7 H RBC 3.06 L Hgb 9.0 L 9.5 L Hct 26.7 L 28.6 L MCHC RDW Lymph % (Auto) Lymph # (Auto) [place] # (Auto) Seg Neutrophils % Seg Neuts % (Manual) Lymphocytes % (Manual) 2.0 L Nucleated RBC % Seg Neutrophils # Seg Neutrophils # Man 30.7 H Lymphocytes # (Manual) 0.7 L Monocytes # (Manual) 1.3 H PT 17.7 H INR 1.47 H APTT 65.8 H* D-Dimer Heparin Anti-Xa Level ABG pH POC ABG pCO2 POC ABG pO2 ABG pO2 ABG HCO3 ABG Hemoglobin ABG Oxyhemoglobin ABG Sodium ABG Potassium ABG Chloride ABG Glucose Carboxyhemoglobin Sodium Potassium Chloride Carbon Dioxide BUN Creatinine Glucose POC Glucose Lactic Acid Calcium Phosphorus Magnesium Ferritin Direct Bilirubin AST ALT Lactate Dehydrogenase Total Creatine Kinase C-Reactive Protein Total Protein Albumin Triglycerides Arterial Blood Glucose Arterial Blood Ionized Calcium Urine Creatinine Urine Chloride Vancomycin Trough Coronavirus (PCR) Crossmatch 06/25/20 06/26/20 06/26/20 23:14 01:30 03:25 WBC RBC Hgb Hct MCHC RDW Lymph % (Auto) Lymph # (Auto) [place] # (Auto) Seg Neutrophils % Seg Neuts % (Manual) Lymphocytes % (Manual) Nucleated RBC % Seg Neutrophils # Seg Neutrophils # Man Lymphocytes # (Manual) Monocytes # (Manual) PT INR APTT D-Dimer Heparin Anti-Xa Level < 0.10 L ABG pH POC ABG pCO2 POC ABG pO2 ABG pO2 ABG HCO3 ABG Hemoglobin 11.8 L ABG Oxyhemoglobin ABG Sodium 127.1 L ABG Potassium 5.4 H ABG Chloride ABG Glucose 155 H Carboxyhemoglobin 0.3 L Sodium Potassium Chloride Carbon Dioxide BUN Creatinine Glucose POC Glucose 148 H Lactic Acid Calcium Phosphorus Magnesium Ferritin Direct Bilirubin AST ALT Lactate Dehydrogenase Total Creatine Kinase C-Reactive Protein Total Protein Albumin Triglycerides Arterial Blood Glucose 155 H Arterial Blood Ionized Calcium 4.2 L Urine Creatinine Urine Chloride Vancomycin Trough Coronavirus (PCR) Crossmatch 06/26/20 06/26/20 06/26/20 03:59 05:14 05:47 WBC 36.5 H RBC 3.26 L Hgb 9.7 L Hct 28.2 L MCHC RDW Lymph % (Auto) Lymph # (Auto) [place] # (Auto) Seg Neutrophils % Seg Neuts % (Manual) 92.0 H Lymphocytes % (Manual) 4.0 L Nucleated RBC % Seg Neutrophils # Seg Neutrophils # Man 33.6 H Lymphocytes # (Manual) Monocytes # (Manual) PT INR APTT D-Dimer Heparin Anti-Xa Level ABG pH POC ABG pCO2 POC ABG pO2 ABG pO2 ABG HCO3 ABG Hemoglobin ABG Oxyhemoglobin ABG Sodium ABG Potassium ABG Chloride ABG Glucose Carboxyhemoglobin Sodium Potassium 5.9 H Chloride Carbon Dioxide 20 L BUN 144 H Creatinine 6.4 H Glucose 149 H POC Glucose 128 H Lactic Acid Calcium 7.6 L Phosphorus Magnesium Ferritin Direct Bilirubin AST ALT Lactate Dehydrogenase Total Creatine Kinase C-Reactive Protein Total Protein Albumin Triglycerides Arterial Blood Glucose Arterial Blood Ionized Calcium Urine Creatinine Urine Chloride Vancomycin Trough Coronavirus (PCR) Crossmatch 06/26/20 06/26/20 06/26/20 05:47 12:47 17:42 WBC RBC Hgb Hct MCHC RDW Lymph % (Auto) Lymph # (Auto) [place] # (Auto) Seg Neutrophils % Seg Neuts % (Manual) Lymphocytes % (Manual) Nucleated RBC % Seg Neutrophils # Seg Neutrophils # Man Lymphocytes # (Manual) Monocytes # (Manual) PT 17.4 H INR 1.44 H APTT D-Dimer Heparin Anti-Xa Level ABG pH POC ABG pCO2 POC ABG pO2 ABG pO2 ABG HCO3 ABG Hemoglobin ABG Oxyhemoglobin ABG Sodium ABG Potassium ABG Chloride ABG Glucose Carboxyhemoglobin Sodium Potassium Chloride Carbon Dioxide BUN Creatinine Glucose POC Glucose 124 H 127 H Lactic Acid Calcium Phosphorus Magnesium Ferritin Direct Bilirubin AST ALT Lactate Dehydrogenase Total Creatine Kinase C-Reactive Protein Total Protein Albumin Triglycerides Arterial Blood Glucose Arterial Blood Ionized Calcium Urine Creatinine Urine Chloride Vancomycin Trough Coronavirus (PCR) Crossmatch 06/26/20 06/27/20 06/27/20 23:30 03:32 04:00 WBC RBC Hgb 8.7 L Hct 26.4 L MCHC RDW Lymph % (Auto) Lymph # (Auto) [place] # (Auto) Seg Neutrophils % Seg Neuts % (Manual) Lymphocytes % (Manual) Nucleated RBC % Seg Neutrophils # Seg Neutrophils # Man Lymphocytes # (Manual) Monocytes # (Manual) PT INR APTT D-Dimer Heparin Anti-Xa Level ABG pH 7.298 L POC ABG pCO2 POC ABG pO2 ABG pO2 ABG HCO3 ABG Hemoglobin 9.6 L ABG Oxyhemoglobin ABG Sodium 124.4 L ABG Potassium 6.6 H ABG Chloride ABG Glucose 136 H Carboxyhemoglobin Sodium Potassium Chloride Carbon Dioxide BUN Creatinine Glucose POC Glucose 123 H Lactic Acid Calcium Phosphorus Magnesium Ferritin Direct Bilirubin AST ALT Lactate Dehydrogenase Total Creatine Kinase C-Reactive Protein Total Protein Albumin Triglycerides Arterial Blood Glucose 136 H Arterial Blood Ionized Calcium 4.1 L Urine Creatinine Urine Chloride Vancomycin Trough Coronavirus (PCR) Crossmatch 06/27/20 06/27/20 06/27/20 05:26 10:14 11:58 WBC RBC Hgb Hct MCHC RDW Lymph % (Auto) Lymph # (Auto) [place] # (Auto) Seg Neutrophils % Seg Neuts % (Manual) Lymphocytes % (Manual) Nucleated RBC % Seg Neutrophils # Seg Neutrophils # Man Lymphocytes # (Manual) Monocytes # (Manual) PT INR APTT D-Dimer Heparin Anti-Xa Level ABG pH POC ABG pCO2 POC ABG pO2 ABG pO2 ABG HCO3 ABG Hemoglobin ABG Oxyhemoglobin ABG Sodium ABG Potassium ABG Chloride ABG Glucose Carboxyhemoglobin Sodium 136 L Potassium 7.0 H* Chloride 97.8 L Carbon Dioxide BUN 172 H Creatinine 7.4 H Glucose 129 H POC Glucose 124 H 115 H Lactic Acid Calcium 7.6 L Phosphorus Magnesium Ferritin Direct Bilirubin AST ALT Lactate Dehydrogenase Total Creatine Kinase C-Reactive Protein Total Protein Albumin Triglycerides Arterial Blood Glucose Arterial Blood Ionized Calcium Urine Creatinine Urine Chloride Vancomycin Trough Coronavirus (PCR) Crossmatch 06/27/20 06/27/20 06/27/20 17:32 18:30 23:24 WBC RBC Hgb Hct MCHC RDW Lymph % (Auto) Lymph # (Auto) [place] # (Auto) Seg Neutrophils % Seg Neuts % (Manual) Lymphocytes % (Manual) Nucleated RBC % Seg Neutrophils # Seg Neutrophils # Man Lymphocytes # (Manual) Monocytes # (Manual) PT INR APTT D-Dimer Heparin Anti-Xa Level ABG pH POC ABG pCO2 POC ABG pO2 ABG pO2 ABG HCO3 ABG Hemoglobin ABG Oxyhemoglobin ABG Sodium ABG Potassium ABG Chloride ABG Glucose Carboxyhemoglobin Sodium Potassium 7.3 H* Chloride Carbon Dioxide BUN Creatinine Glucose POC Glucose 122 H 116 H Lactic Acid Calcium Phosphorus Magnesium Ferritin Direct Bilirubin AST ALT Lactate Dehydrogenase Total Creatine Kinase C-Reactive Protein Total Protein Albumin Triglycerides Arterial Blood Glucose Arterial Blood Ionized Calcium Urine Creatinine Urine Chloride Vancomycin Trough Coronavirus (PCR) Crossmatch 06/28/20 06/28/20 06/28/20 00:00 02:16 05:37 WBC RBC Hgb Hct MCHC RDW Lymph % (Auto) Lymph # (Auto) [place] # (Auto) Seg Neutrophils % Seg Neuts % (Manual) Lymphocytes % (Manual) Nucleated RBC % Seg Neutrophils # Seg Neutrophils # Man Lymphocytes # (Manual) Monocytes # (Manual) PT INR APTT D-Dimer Heparin Anti-Xa Level ABG pH POC ABG pCO2 POC ABG pO2 79.0 L ABG pO2 ABG HCO3 ABG Hemoglobin 11.7 L ABG Oxyhemoglobin ABG Sodium 128.1 L ABG Potassium 6.6 H ABG Chloride ABG Glucose 124 H Carboxyhemoglobin Sodium Potassium 7.3 H* Chloride Carbon Dioxide BUN Creatinine Glucose POC Glucose 115 H Lactic Acid Calcium Phosphorus Magnesium Ferritin Direct Bilirubin AST ALT Lactate Dehydrogenase Total Creatine Kinase C-Reactive Protein Total Protein Albumin Triglycerides Arterial Blood Glucose 124 H Arterial Blood Ionized Calcium 4.2 L Urine Creatinine Urine Chloride Vancomycin Trough Coronavirus (PCR) Crossmatch 06/28/20 06/28/20 06/28/20 10:03 10:03 11:51 WBC 33.6 H RBC 3.03 L Hgb 8.9 L Hct 27.0 L MCHC RDW Lymph % (Auto) Lymph # (Auto) [place] # (Auto) Seg Neutrophils % Seg Neuts % (Manual) Lymphocytes % (Manual) Nucleated RBC % Seg Neutrophils # Seg Neutrophils # Man Lymphocytes # (Manual) Monocytes # (Manual) PT INR APTT D-Dimer Heparin Anti-Xa Level ABG pH POC ABG pCO2 POC ABG pO2 ABG pO2 ABG HCO3 ABG Hemoglobin ABG Oxyhemoglobin ABG Sodium ABG Potassium ABG Chloride ABG Glucose Carboxyhemoglobin Sodium 136 L Potassium 6.5 H* Chloride Carbon Dioxide 20 L BUN 129 H Creatinine 5.8 H Glucose 113 H POC Glucose 107 H Lactic Acid Calcium 7.6 L Phosphorus Magnesium Ferritin Direct Bilirubin AST ALT Lactate Dehydrogenase Total Creatine Kinase C-Reactive Protein Total Protein Albumin Triglycerides Arterial Blood Glucose Arterial Blood Ionized Calcium Urine Creatinine Urine Chloride Vancomycin Trough Coronavirus (PCR) Crossmatch 06/28/20 06/28/20 06/29/20 17:45 Unknown 03:15 WBC RBC Hgb Hct MCHC RDW Lymph % (Auto) Lymph # (Auto) [place] # (Auto) Seg Neutrophils % Seg Neuts % (Manual) Lymphocytes % (Manual) Nucleated RBC % Seg Neutrophils # Seg Neutrophils # Man Lymphocytes # (Manual) Monocytes # (Manual) PT INR APTT D-Dimer Heparin Anti-Xa Level ABG pH POC ABG pCO2 POC ABG pO2 ABG pO2 ABG HCO3 ABG Hemoglobin 7.8 L ABG Oxyhemoglobin ABG Sodium 127.4 L ABG Potassium 5.5 H ABG Chloride 97.0 L ABG Glucose 96 H Carboxyhemoglobin Sodium Potassium 5.4 H Chloride Carbon Dioxide BUN Creatinine Glucose POC Glucose 117 H Lactic Acid Calcium Phosphorus Magnesium Ferritin Direct Bilirubin AST ALT Lactate Dehydrogenase Total Creatine Kinase C-Reactive Protein Total Protein Albumin Triglycerides Arterial Blood Glucose 96 H Arterial Blood Ionized Calcium 4.0 L Urine Creatinine Urine Chloride Vancomycin Trough Coronavirus (PCR) Crossmatch 06/29/20 06/29/20 06/29/20 03:45 Unknown Unknown WBC RBC Hgb Hct MCHC RDW Lymph % (Auto) Lymph # (Auto) [place] # (Auto) Seg Neutrophils % Seg Neuts % (Manual) Lymphocytes % (Manual) Nucleated RBC % Seg Neutrophils # Seg Neutrophils # Man Lymphocytes # (Manual) Monocytes # (Manual) PT INR APTT D-Dimer Heparin Anti-Xa Level ABG pH POC ABG pCO2 POC ABG pO2 ABG pO2 ABG HCO3 ABG Hemoglobin ABG Oxyhemoglobin ABG Sodium ABG Potassium ABG Chloride ABG Glucose Carboxyhemoglobin Sodium 135 L Potassium 6.0 H 6.1 H* Chloride 94.8 L Carbon Dioxide BUN 109 H 114 H Creatinine 5.5 H Glucose POC Glucose Lactic Acid Calcium 7.4 L Phosphorus Magnesium Ferritin Direct Bilirubin AST 47 H ALT Lactate Dehydrogenase Total Creatine Kinase C-Reactive Protein Total Protein 4.9 L Albumin 2.2 L Triglycerides Arterial Blood Glucose Arterial Blood Ionized Calcium Urine Creatinine Urine Chloride Vancomycin Trough Coronavirus (PCR) Crossmatch 06/29/20 06/29/20 06/30/20 Unknown Unknown 03:32 WBC 20.7 H RBC 2.57 L Hgb 7.6 L Hct 23.0 L MCHC RDW Lymph % (Auto) Lymph # (Auto) [place] # (Auto) Seg Neutrophils % Seg Neuts % (Manual) Lymphocytes % (Manual) Nucleated RBC % Seg Neutrophils # Seg Neutrophils # Man Lymphocytes # (Manual) Monocytes # (Manual) PT INR APTT D-Dimer Heparin Anti-Xa Level ABG pH POC ABG pCO2 POC ABG pO2 ABG pO2 ABG HCO3 ABG Hemoglobin 11.4 L ABG Oxyhemoglobin ABG Sodium 130.1 L ABG Potassium 5.0 H ABG Chloride ABG Glucose Carboxyhemoglobin Sodium Potassium Chloride Carbon Dioxide BUN Creatinine Glucose POC Glucose Lactic Acid Calcium Phosphorus Magnesium Ferritin Direct Bilirubin AST ALT Lactate Dehydrogenase Total Creatine Kinase 618 H C-Reactive Protein Total Protein Albumin Triglycerides Arterial Blood Glucose Arterial Blood Ionized Calcium 3.9 L Urine Creatinine Urine Chloride Vancomycin Trough Coronavirus (PCR) Crossmatch 06/30/20 06/30/20 06/30/20 03:50 03:50 11:39 WBC 13.1 H RBC Hgb Hct MCHC RDW Lymph % (Auto) Lymph # (Auto) [place] # (Auto) Seg Neutrophils % Seg Neuts % (Manual) 95.0 H Lymphocytes % (Manual) 3.0 L Nucleated RBC % Seg Neutrophils # Seg Neutrophils # Man 12.4 H Lymphocytes # (Manual) 0.4 L Monocytes # (Manual) PT INR APTT D-Dimer Heparin Anti-Xa Level ABG pH POC ABG pCO2 POC ABG pO2 ABG pO2 ABG HCO3 ABG Hemoglobin ABG Oxyhemoglobin ABG Sodium ABG Potassium ABG Chloride ABG Glucose Carboxyhemoglobin Sodium 135 L Potassium 5.4 H D Chloride 93.6 L Carbon Dioxide BUN 85 H Creatinine 4.6 H Glucose POC Glucose 111 H Lactic Acid Calcium 7.1 L Phosphorus 9.40 H Magnesium Ferritin Direct Bilirubin AST ALT Lactate Dehydrogenase Total Creatine Kinase C-Reactive Protein Total Protein Albumin Triglycerides Arterial Blood Glucose Arterial Blood Ionized Calcium Urine Creatinine Urine Chloride Vancomycin Trough Coronavirus (PCR) Crossmatch 06/30/20 06/30/20 07/01/20 13:12 Unknown 03:19 WBC RBC Hgb 7.8 L D Hct 23.2 L D MCHC RDW Lymph % (Auto) Lymph # (Auto) [place] # (Auto) Seg Neutrophils % Seg Neuts % (Manual) Lymphocytes % (Manual) Nucleated RBC % Seg Neutrophils # Seg Neutrophils # Man Lymphocytes # (Manual) Monocytes # (Manual) PT INR APTT D-Dimer Heparin Anti-Xa Level ABG pH 7.461 H POC ABG pCO2 POC ABG pO2 77.2 L ABG pO2 ABG HCO3 ABG Hemoglobin 6.9 L ABG Oxyhemoglobin ABG Sodium 128.5 L ABG Potassium ABG Chloride 97.0 L ABG Glucose Carboxyhemoglobin Sodium Potassium Chloride Carbon Dioxide BUN Creatinine Glucose POC Glucose Lactic Acid Calcium Phosphorus Magnesium Ferritin Direct Bilirubin AST ALT Lactate Dehydrogenase Total Creatine Kinase C-Reactive Protein Total Protein Albumin Triglycerides Arterial Blood Glucose Arterial Blood Ionized Calcium 3.7 L Urine Creatinine Urine Chloride Vancomycin Trough Coronavirus (PCR) Positive A Crossmatch 07/01/20 07/01/20 07/01/20 06:00 06:00 11:04 WBC 16.7 H RBC 2.16 L Hgb 6.4 L Hct 19.2 L* MCHC RDW Lymph % (Auto) Lymph # (Auto) [place] # (Auto) Seg Neutrophils % Seg Neuts % (Manual) Lymphocytes % (Manual) Nucleated RBC % Seg Neutrophils # Seg Neutrophils # Man Lymphocytes # (Manual) Monocytes # (Manual) PT INR APTT D-Dimer Heparin Anti-Xa Level ABG pH POC ABG pCO2 POC ABG pO2 ABG pO2 ABG HCO3 ABG Hemoglobin ABG Oxyhemoglobin ABG Sodium ABG Potassium ABG Chloride ABG Glucose Carboxyhemoglobin Sodium 136 L Potassium Chloride 95.8 L Carbon Dioxide BUN 72 H Creatinine 4.3 H Glucose POC Glucose Lactic Acid Calcium 6.7 L Phosphorus Magnesium Ferritin Direct Bilirubin AST ALT Lactate Dehydrogenase Total Creatine Kinase C-Reactive Protein Total Protein Albumin Triglycerides 250 H Arterial Blood Glucose Arterial Blood Ionized Calcium Urine Creatinine Urine Chloride Vancomycin Trough Coronavirus (PCR) Crossmatch See Detail 07/02/20 07/02/20 07/02/20 04:44 06:00 11:33 WBC 14.6 H RBC 2.47 L Hgb 7.4 L Hct 21.8 L MCHC RDW Lymph % (Auto) Lymph # (Auto) [place] # (Auto) Seg Neutrophils % Seg Neuts % (Manual) Lymphocytes % (Manual) Nucleated RBC % Seg Neutrophils # Seg Neutrophils # Man Lymphocytes # (Manual) Monocytes # (Manual) PT INR APTT D-Dimer Heparin Anti-Xa Level ABG pH 7.457 H POC ABG pCO2 POC ABG pO2 79.4 L ABG pO2 ABG HCO3 ABG Hemoglobin 8.5 L ABG Oxyhemoglobin ABG Sodium 128.4 L ABG Potassium ABG Chloride 97.0 L ABG Glucose 100 H Carboxyhemoglobin Sodium 133 L Potassium 5.2 H Chloride 93.3 L Carbon Dioxide BUN 66 H Creatinine 4.1 H Glucose 102 H POC Glucose Lactic Acid Calcium 7.2 L Phosphorus Magnesium Ferritin Direct Bilirubin AST ALT Lactate Dehydrogenase Total Creatine Kinase C-Reactive Protein Total Protein Albumin Triglycerides Arterial Blood Glucose 100 H Arterial Blood Ionized Calcium 3.9 L Urine Creatinine Urine Chloride Vancomycin Trough Coronavirus (PCR) Crossmatch 07/02/20 07/03/2021 11:33 03:54 09:15 WBC 16.6 H RBC 2.44 L Hgb 7.3 L Hct 21.4 L MCHC RDW Lymph % (Auto) Lymph # (Auto) [place] # (Auto) Seg Neutrophils % Seg Neuts % (Manual) Lymphocytes % (Manual) Nucleated RBC % Seg Neutrophils # Seg Neutrophils # Man Lymphocytes # (Manual) Monocytes # (Manual) PT INR APTT D-Dimer Heparin Anti-Xa Level ABG pH POC ABG pCO2 POC ABG pO2 66.1 L ABG pO2 ABG HCO3 ABG Hemoglobin 8.0 L ABG Oxyhemoglobin ABG Sodium 124.6 L ABG Potassium 5.5 H ABG Chloride 96.0 L ABG Glucose 111 H Carboxyhemoglobin Sodium Potassium Chloride Carbon Dioxide BUN Creatinine Glucose POC Glucose Lactic Acid Calcium Phosphorus Magnesium Ferritin Direct Bilirubin 0.7 H AST 94 H ALT 60 H Lactate Dehydrogenase Total Creatine Kinase C-Reactive Protein Total Protein 4.4 L Albumin 1.9 L Triglycerides Arterial Blood Glucose 111 H Arterial Blood Ionized Calcium 3.8 L Urine Creatinine Urine Chloride Vancomycin Trough Coronavirus (PCR) Crossmatch 07/03/20 07/03/20 07/03/20 09:15 10:10 14:50 WBC RBC Hgb Hct MCHC RDW Lymph % (Auto) Lymph # (Auto) [place] # (Auto) Seg Neutrophils % Seg Neuts % (Manual) Lymphocytes % (Manual) Nucleated RBC % Seg Neutrophils # Seg Neutrophils # Man Lymphocytes # (Manual) Monocytes # (Manual) PT INR APTT D-Dimer 6608.00 H Heparin Anti-Xa Level ABG pH POC ABG pCO2 POC ABG pO2 ABG pO2 ABG HCO3 ABG Hemoglobin ABG Oxyhemoglobin ABG Sodium ABG Potassium ABG Chloride ABG Glucose Carboxyhemoglobin Sodium 133 L Potassium 6.2 H* Chloride 93.1 L Carbon Dioxide BUN 89 H Creatinine 5.1 H Glucose POC Glucose Lactic Acid Calcium 7.0 L Phosphorus Magnesium Ferritin Direct Bilirubin AST ALT Lactate Dehydrogenase Total Creatine Kinase C-Reactive Protein Total Protein Albumin Triglycerides Arterial Blood Glucose Arterial Blood Ionized Calcium Urine Creatinine Urine Chloride Vancomycin Trough Coronavirus (PCR) Positive A Crossmatch 07/03/20 07/03/20 07/03/20 14:50 14:50 14:50 WBC RBC Hgb Hct MCHC RDW Lymph % (Auto) Lymph # (Auto) [place] # (Auto) Seg Neutrophils % Seg Neuts % (Manual) Lymphocytes % (Manual) Nucleated RBC % Seg Neutrophils # Seg Neutrophils # Man Lymphocytes # (Manual) Monocytes # (Manual) PT INR APTT D-Dimer Heparin Anti-Xa Level ABG pH POC ABG pCO2 POC ABG pO2 ABG pO2 ABG HCO3 ABG Hemoglobin ABG Oxyhemoglobin ABG Sodium ABG Potassium ABG Chloride ABG Glucose Carboxyhemoglobin Sodium Potassium Chloride Carbon Dioxide BUN Creatinine Glucose POC Glucose Lactic Acid < 0.20 L Calcium Phosphorus Magnesium Ferritin 1171.0 H Direct Bilirubin AST ALT Lactate Dehydrogenase 525 H Total Creatine Kinase C-Reactive Protein 31.50 H Total Protein Albumin Triglycerides Arterial Blood Glucose Arterial Blood Ionized Calcium Urine Creatinine Urine Chloride Vancomycin Trough Coronavirus (PCR) Crossmatch 07/03/20 07/04/20 07/04/20 16:47 05:20 05:20 WBC 11.8 H RBC 2.32 L Hgb 6.7 L Hct 20.8 L MCHC RDW Lymph % (Auto) 2.6 L Lymph # (Auto) 0.3 L [place] # (Auto) Seg Neutrophils % Seg Neuts % (Manual) Lymphocytes % (Manual) Nucleated RBC % Seg Neutrophils # 11.0 H Seg Neutrophils # Man Lymphocytes # (Manual) Monocytes # (Manual) PT INR APTT D-Dimer Heparin Anti-Xa Level ABG pH POC ABG pCO2 POC ABG pO2 ABG pO2 ABG HCO3 ABG Hemoglobin ABG Oxyhemoglobin ABG Sodium ABG Potassium ABG Chloride ABG Glucose Carboxyhemoglobin Sodium Potassium 6.0 H Chloride 97.8 L Carbon Dioxide BUN 75 H Creatinine 4.5 H Glucose 121 H POC Glucose 107 H Lactic Acid Calcium 7.9 L Phosphorus Magnesium Ferritin Direct Bilirubin AST ALT Lactate Dehydrogenase Total Creatine Kinase C-Reactive Protein Total Protein Albumin Triglycerides Arterial Blood Glucose Arterial Blood Ionized Calcium Urine Creatinine Urine Chloride Vancomycin Trough Coronavirus (PCR) Crossmatch 07/04/20 07/04/20 07/04/20 05:20 05:50 09:25 WBC RBC Hgb Hct MCHC RDW Lymph % (Auto) Lymph # (Auto) [place] # (Auto) Seg Neutrophils % Seg Neuts % (Manual) Lymphocytes % (Manual) Nucleated RBC % Seg Neutrophils # Seg Neutrophils # Man Lymphocytes # (Manual) Monocytes # (Manual) PT INR APTT D-Dimer Heparin Anti-Xa Level ABG pH 7.324 L POC ABG pCO2 POC ABG pO2 ABG pO2 98.9 H ABG HCO3 26.8 H ABG Hemoglobin < 5.1 L ABG Oxyhemoglobin ABG Sodium ABG Potassium ABG Chloride ABG Glucose Carboxyhemoglobin Sodium Potassium Chloride Carbon Dioxide BUN Creatinine Glucose POC Glucose 114 H Lactic Acid Calcium Phosphorus Magnesium Ferritin Direct Bilirubin AST ALT Lactate Dehydrogenase Total Creatine Kinase C-Reactive Protein Total Protein Albumin Triglycerides Arterial Blood Glucose Arterial Blood Ionized Calcium Urine Creatinine Urine Chloride Vancomycin Trough Coronavirus (PCR) Crossmatch See Detail 07/04/20 07/04/20 07/04/20 12:33 17:41 23:04 WBC RBC Hgb Hct MCHC RDW Lymph % (Auto) Lymph # (Auto) [place] # (Auto) Seg Neutrophils % Seg Neuts % (Manual) Lymphocytes % (Manual) Nucleated RBC % Seg Neutrophils # Seg Neutrophils # Man Lymphocytes # (Manual) Monocytes # (Manual) PT INR APTT D-Dimer Heparin Anti-Xa Level ABG pH POC ABG pCO2 POC ABG pO2 ABG pO2 ABG HCO3 ABG Hemoglobin ABG Oxyhemoglobin ABG Sodium ABG Potassium ABG Chloride ABG Glucose Carboxyhemoglobin Sodium Potassium Chloride Carbon Dioxide BUN Creatinine Glucose POC Glucose 119 H 109 H 116 H Lactic Acid Calcium Phosphorus Magnesium Ferritin Direct Bilirubin AST ALT Lactate Dehydrogenase Total Creatine Kinase C-Reactive Protein Total Protein Albumin Triglycerides Arterial Blood Glucose Arterial Blood Ionized Calcium Urine Creatinine Urine Chloride Vancomycin Trough Coronavirus (PCR) Crossmatch 07/05/20 07/05/20 07/05/20 04:30 08:21 08:21 WBC RBC 2.77 L Hgb 7.9 L Hct 23.9 L MCHC RDW 16.7 H Lymph % (Auto) 7.5 L Lymph # (Auto) 0.7 L [place] # (Auto) Seg Neutrophils % 85.8 H Seg Neuts % (Manual) Lymphocytes % (Manual) Nucleated RBC % Seg Neutrophils # 7.8 H Seg Neutrophils # Man Lymphocytes # (Manual) Monocytes # (Manual) PT INR APTT D-Dimer Heparin Anti-Xa Level ABG pH 7.295 L POC ABG pCO2 POC ABG pO2 ABG pO2 151.9 H ABG HCO3 26.8 H ABG Hemoglobin 7.3 L ABG Oxyhemoglobin ABG Sodium ABG Potassium ABG Chloride ABG Glucose Carboxyhemoglobin Sodium Potassium Chloride Carbon Dioxide BUN Creatinine Glucose POC Glucose Lactic Acid Calcium Phosphorus Magnesium Ferritin Direct Bilirubin AST ALT Lactate Dehydrogenase Total Creatine Kinase C-Reactive Protein Total Protein Albumin Triglycerides 258 H Arterial Blood Glucose Arterial Blood Ionized Calcium Urine Creatinine Urine Chloride Vancomycin Trough Coronavirus (PCR) Crossmatch 07/05/20 07/05/20 07/06/20 08:21 12:12 04:29 WBC RBC Hgb Hct MCHC RDW Lymph % (Auto) Lymph # (Auto) [place] # (Auto) Seg Neutrophils % Seg Neuts % (Manual) Lymphocytes % (Manual) Nucleated RBC % Seg Neutrophils # Seg Neutrophils # Man Lymphocytes # (Manual) Monocytes # (Manual) PT INR APTT D-Dimer Heparin Anti-Xa Level ABG pH 7.291 L POC ABG pCO2 51.3 H POC ABG pO2 ABG pO2 ABG HCO3 ABG Hemoglobin 8.5 L ABG Oxyhemoglobin ABG Sodium 129.6 L ABG Potassium 4.8 H ABG Chloride 96.0 L ABG Glucose Carboxyhemoglobin Sodium 133 L Potassium 5.6 H Chloride 94.4 L Carbon Dioxide BUN 80 H Creatinine 4.2 H Glucose 114 H POC Glucose 106 H Lactic Acid Calcium 7.6 L Phosphorus Magnesium Ferritin Direct Bilirubin 0.5 H AST 75 H ALT 86 H Lactate Dehydrogenase Total Creatine Kinase C-Reactive Protein Total Protein 5.6 L D Albumin 1.9 L Triglycerides Arterial Blood Glucose Arterial Blood Ionized Calcium 4.2 L Urine Creatinine Urine Chloride Vancomycin Trough Coronavirus (PCR) Crossmatch 07/06/20 07/06/20 07/06/20 11:35 11:35 12:16 WBC RBC 2.54 L Hgb 7.5 L Hct 21.5 L MCHC 35 H RDW 15.7 H Lymph % (Auto) Lymph # (Auto) [place] # (Auto) Seg Neutrophils % Seg Neuts % (Manual) Lymphocytes % (Manual) Nucleated RBC % Seg Neutrophils # Seg Neutrophils # Man Lymphocytes # (Manual) Monocytes # (Manual) PT INR APTT D-Dimer Heparin Anti-Xa Level ABG pH POC ABG pCO2 POC ABG pO2 ABG pO2 ABG HCO3 ABG Hemoglobin ABG Oxyhemoglobin ABG Sodium ABG Potassium ABG Chloride ABG Glucose Carboxyhemoglobin Sodium 130 L Potassium Chloride 92.2 L Carbon Dioxide 19 L D BUN 107 H Creatinine 5.1 H Glucose 106 H POC Glucose 106 H Lactic Acid Calcium 7.5 L Phosphorus Magnesium Ferritin Direct Bilirubin AST ALT Lactate Dehydrogenase Total Creatine Kinase C-Reactive Protein Total Protein Albumin Triglycerides Arterial Blood Glucose Arterial Blood Ionized Calcium Urine Creatinine Urine Chloride Vancomycin Trough Coronavirus (PCR) Crossmatch 07/06/20 07/06/20 07/06/20 17:01 21:56 23:41 WBC RBC Hgb Hct MCHC RDW Lymph % (Auto) Lymph # (Auto) [place] # (Auto) Seg Neutrophils % Seg Neuts % (Manual) Lymphocytes % (Manual) Nucleated RBC % Seg Neutrophils # Seg Neutrophils # Man Lymphocytes # (Manual) Monocytes # (Manual) PT INR APTT D-Dimer Heparin Anti-Xa Level ABG pH POC ABG pCO2 POC ABG pO2 ABG pO2 ABG HCO3 ABG Hemoglobin ABG Oxyhemoglobin ABG Sodium ABG Potassium ABG Chloride ABG Glucose Carboxyhemoglobin Sodium 135 L Potassium 5.1 H Chloride Carbon Dioxide BUN 73 H Creatinine 4.0 H Glucose 112 H POC Glucose 109 H 111 H Lactic Acid Calcium 7.8 L Phosphorus Magnesium Ferritin Direct Bilirubin AST ALT Lactate Dehydrogenase Total Creatine Kinase C-Reactive Protein Total Protein Albumin Triglycerides Arterial Blood Glucose Arterial Blood Ionized Calcium Urine Creatinine Urine Chloride Vancomycin Trough Coronavirus (PCR) Crossmatch 07/07/20 07/07/20 07/07/20 04:18 05:04 05:29 WBC RBC 2.46 L Hgb 7.6 L Hct 21.5 L MCHC 35 H RDW 16.5 H Lymph % (Auto) Lymph # (Auto) [place] # (Auto) Seg Neutrophils % Seg Neuts % (Manual) 82.0 H Lymphocytes % (Manual) Nucleated RBC % 1.0 H Seg Neutrophils # Seg Neutrophils # Man Lymphocytes # (Manual) 1.1 L Monocytes # (Manual) PT INR APTT D-Dimer Heparin Anti-Xa Level ABG pH POC ABG pCO2 POC ABG pO2 79.6 L ABG pO2 ABG HCO3 ABG Hemoglobin 8.2 L ABG Oxyhemoglobin ABG Sodium 133.3 L ABG Potassium 4.7 H ABG Chloride ABG Glucose 135 H Carboxyhemoglobin Sodium Potassium Chloride Carbon Dioxide BUN Creatinine Glucose POC Glucose 112 H Lactic Acid Calcium Phosphorus Magnesium Ferritin Direct Bilirubin AST ALT Lactate Dehydrogenase Total Creatine Kinase C-Reactive Protein Total Protein Albumin Triglycerides Arterial Blood Glucose 135 H Arterial Blood Ionized Calcium 4.5 L Urine Creatinine Urine Chloride Vancomycin Trough Coronavirus (PCR) Crossmatch 07/07/20 07/07/20 07/07/20 10:17 12:18 17:43 WBC RBC Hgb Hct MCHC RDW Lymph % (Auto) Lymph # (Auto) [place] # (Auto) Seg Neutrophils % Seg Neuts % (Manual) Lymphocytes % (Manual) Nucleated RBC % Seg Neutrophils # Seg Neutrophils # Man Lymphocytes # (Manual) Monocytes # (Manual) PT INR APTT D-Dimer Heparin Anti-Xa Level ABG pH POC ABG pCO2 POC ABG pO2 ABG pO2 ABG HCO3 ABG Hemoglobin ABG Oxyhemoglobin ABG Sodium ABG Potassium ABG Chloride ABG Glucose Carboxyhemoglobin Sodium 136 L Potassium Chloride 96.8 L Carbon Dioxide BUN 82 H Creatinine 4.3 H Glucose 129 H POC Glucose 108 H 116 H Lactic Acid Calcium 7.8 L Phosphorus Magnesium Ferritin Direct Bilirubin AST ALT Lactate Dehydrogenase Total Creatine Kinase C-Reactive Protein Total Protein Albumin Triglycerides Arterial Blood Glucose Arterial Blood Ionized Calcium Urine Creatinine Urine Chloride Vancomycin Trough Coronavirus (PCR) Crossmatch 07/07/20 07/08/20 07/08/20 23:31 04:00 04:00 WBC RBC 2.52 L Hgb 7.3 L Hct 22.2 L MCHC RDW 16.6 H Lymph % (Auto) 11.5 L Lymph # (Auto) [place] # (Auto) Seg Neutrophils % 78.2 H Seg Neuts % (Manual) Lymphocytes % (Manual) Nucleated RBC % Seg Neutrophils # 8.0 H Seg Neutrophils # Man Lymphocytes # (Manual) Monocytes # (Manual) PT INR APTT D-Dimer Heparin Anti-Xa Level ABG pH POC ABG pCO2 POC ABG pO2 ABG pO2 ABG HCO3 ABG Hemoglobin ABG Oxyhemoglobin ABG Sodium ABG Potassium ABG Chloride ABG Glucose Carboxyhemoglobin Sodium 132 L Potassium 5.4 H Chloride 92.5 L Carbon Dioxide BUN 98 H Creatinine 4.9 H Glucose 105 H POC Glucose 117 H Lactic Acid Calcium 7.9 L Phosphorus Magnesium Ferritin Direct Bilirubin AST ALT Lactate Dehydrogenase Total Creatine Kinase C-Reactive Protein Total Protein Albumin Triglycerides Arterial Blood Glucose Arterial Blood Ionized Calcium Urine Creatinine Urine Chloride Vancomycin Trough Coronavirus (PCR) Crossmatch 07/08/20 07/08/20 07/08/20 04:09 11:34 17:05 WBC RBC Hgb Hct MCHC RDW Lymph % (Auto) Lymph # (Auto) [place] # (Auto) Seg Neutrophils % Seg Neuts % (Manual) Lymphocytes % (Manual) Nucleated RBC % Seg Neutrophils # Seg Neutrophils # Man Lymphocytes # (Manual) Monocytes # (Manual) PT INR APTT D-Dimer Heparin Anti-Xa Level ABG pH 7.220 L POC ABG pCO2 60.5 H POC ABG pO2 ABG pO2 ABG HCO3 ABG Hemoglobin 8.2 L ABG Oxyhemoglobin ABG Sodium 131.3 L ABG Potassium 5.2 H ABG Chloride ABG Glucose 103 H Carboxyhemoglobin Sodium Potassium Chloride Carbon Dioxide BUN Creatinine Glucose POC Glucose 140 H 125 H Lactic Acid Calcium Phosphorus Magnesium Ferritin Direct Bilirubin AST ALT Lactate Dehydrogenase Total Creatine Kinase C-Reactive Protein Total Protein Albumin Triglycerides Arterial Blood Glucose 103 H Arterial Blood Ionized Calcium 4.3 L Urine Creatinine Urine Chloride Vancomycin Trough Coronavirus (PCR) Crossmatch 07/08/20 07/08/20 07/09/20 20:21 23:43 05:10 WBC RBC Hgb Hct MCHC RDW Lymph % (Auto) Lymph # (Auto) [place] # (Auto) Seg Neutrophils % Seg Neuts % (Manual) Lymphocytes % (Manual) Nucleated RBC % Seg Neutrophils # Seg Neutrophils # Man Lymphocytes # (Manual) Monocytes # (Manual) PT INR APTT D-Dimer Heparin Anti-Xa Level ABG pH 7.20 L POC ABG pCO2 69.8 H POC ABG pO2 138.9 H 76.1 L ABG pO2 ABG HCO3 ABG Hemoglobin 11.9 L 8.4 L ABG Oxyhemoglobin ABG Sodium 133.1 L 131.2 L ABG Potassium 5.0 H 4.7 H ABG Chloride ABG Glucose 120 H 102 H Carboxyhemoglobin Sodium Potassium Chloride Carbon Dioxide BUN Creatinine Glucose POC Glucose 118 H Lactic Acid Calcium Phosphorus Magnesium Ferritin Direct Bilirubin AST ALT Lactate Dehydrogenase Total Creatine Kinase C-Reactive Protein Total Protein Albumin Triglycerides Arterial Blood Glucose 120 H 102 H Arterial Blood Ionized Calcium 4.4 L 4.3 L Urine Creatinine Urine Chloride Vancomycin Trough Coronavirus (PCR) Crossmatch Chest x-ray: other (none today) Allied health notes reviewed: nursing
[2020-07-10] MEDS: NORepinephrine/NS 4 MG-250 ML 4 MG/250 ML BAG IV SCH (02:10)
[2020-07-10] MEDS: fentaNYL DRIP Premix 2,000 MCG/100 ML BAG IV SCH ×4 (02:12→19:49)
--- NOTE | 2020-07-10 03:24 | XRay Report ---
CHEST 1 VIEW 07/10/2020 2:16 AM INDICATION / CLINICAL INFORMATION: Pulmonary edema. COMPARISON: 07/07/2020 FINDINGS: SUPPORT DEVICES: Stable, satisfactory device positioning. HEART / MEDIASTINUM: Stable. LUNGS / PLEURA: Stable diffuse bilateral opacities. No pneumothorax. ADDITIONAL FINDINGS: No significant additional findings. IMPRESSION: 1. No significant change. Signer Name: Vishal Harrison MD Signed: 07/10/2020 3:20 AM Workstation Name: [id number]
[2020-07-10 04:35] LABS: Hematocrit 20.7 % (35.5-45.6); Hemoglobin 6.8 gm/dl (11.8-15.2); Mean Corpuscular HGB Conc 33 % (32-34); Mean Corpuscular Volume 87 fl (84-94); Platelet Count 225 K/mm3 (140-440); Red Blood Count 2.37 M/mm3 (3.65-5.03); Red Cell Distribution Width 16.9 % (13.2-15.2)
[2020-07-10 05:30] LABS: Calcium 7.4 mg/dL (8.4-10.2)
[2020-07-10] MEDS: ASCORBIC ACID 250 MG TAB PO SCH ×2 (10:27→22:10)
[2020-07-10] MEDS: ZINC SULFATE 220 MG CAP PO SCH ×2 (10:28→21:45)
[2020-07-10] MEDS: FAMOTIDINE 20 MG/2 ML INJ IV SCH (10:28)
[2020-07-10] MEDS: POLYETHYLENE GLYCOL 3350 17 GM POWDER PO SCH (10:28)
[2020-07-10] MEDS: SODIUM BICARBONATE 650 MG TAB PO SCH ×3 (10:28→19:48)
[2020-07-10] MEDS: CHOLECALCIFEROL (VIT D3) 1000 UNIT (25 mcg) TAB PO SCH (10:28)
[2020-07-10] MEDS: QUEtiapine 200 MG TAB PO SCH ×2 (10:28→21:45)
[2020-07-10] MEDS: AMIODARONE 200 MG TAB PO SCH ×2 (10:28→21:46)
[2020-07-10] MEDS: dexAMETHasone 4 MG/ML VIAL IV SCH (10:28)
[2020-07-10] MEDS: DOCUSATE SODIUM 100 MG/10 ML ORAL LIQD FEEDTUBE SCH ×2 (10:28→21:45)
[2020-07-10] MEDS ORDERED: SODIUM CHLORIDE 0.9% 500 ML 500 ML IV ONE (11:18)
--- NOTE | 2020-07-10 11:18 | Progress Note ---
Assessment and Plan Assessment and plan: 59-year-old white male who was admitted for pneumonia secondary to Covid with associated respiratory failure and sepsis. Acute metabolic encephalopathy -Due to severe sepsis and severe hypoxia -CT head showed no acute process, currently intubated, continue supportive care with frequent neuro check Acute hypoxic respiratory failure -Due to severe COVID-19 pneumonia -Intubated following admission overnight as patient was unable to maintain oxygenation with 100% FiO2 with BiPAP -Critical care following, frequent nebulizer breathing treatment, s/p empiric steroid -Patient currently mechanically ventilated and unable to wean off Severe septic shock -Status post 2 pressor support -Still intermittently requiring pressor support, currently off pressor COVID-19 pneumonia -Follow inflammatory markers, ID consulted --Patient initially tested positive for COVID-19 virus about 2 weeks before this admission -CXR shows patchy parenchymal disease which represent pulmonary edema or atypical pneumonia -Placed on dexamethasone for total 10 days and completed remdesivir total 5 days -Continue empiric antibiotics for now per ID recommendation -Droplet/contact isolation -Continue SPO2 monitoring -Supplemental oxygen as needed -Pulmonary hygiene, Prone intermittently to improve oxygenation -Vitamin C, vitamin D, zinc -Anticoagulation per protocol GIRISH, likely ATN -Follow BMP daily, avoid nephrotoxins -Consulted nephrology, follow recommendations -Renal function continues to decline, started on hemodialysis since 06/22/20 Hyperkalemia -Treated aggressively, due to renal failure -s/p Calcium gluconate IV sodium bicarbonate and Kayexalate given -Patient currently on scheduled hemodialysis hypokalemia, repleted Supraventricular tachycardia/paroxysmal atrial fibrillation -likely due to severe sepsis -Status post IV amiodarone drip for rate control -Currently on Cardizem with tube feeding -Consulted cardiology, echo showed preserved EF -Placed on heparin drip but discontinued due to severe anemia requiring transfusion Elevated LFT, due to shock liver from severe sepsis and COVID-19 infection -Continue to trend Anemia likely due to severe sepsis and declining renal function Morbid obesity, -Associated with poor outcome with Covid infection -need counseling for diet and exercise and healthy lifestyles once clinically stable as outpatient DVT prophylaxis, on hold now for anemia The high probability of a clinically significant, sudden or life threatening deterioration of the [ENVIRONMENTAL ENGINEER, CVS, renal, 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 The aggregate critical care time was [32] minutes. This time is in addition to time spent performing reported procedures but includes the following: [x] Data Review and interpretation [x] Patient assessment and monitoring of vital signs [x] Documentation [x] Medication orders and management Daily course: 06/18: Patient got intubated overnight. Patient was placed on BiPAP to maintain oxygenation with 100% FiO2 but apparently he found to take off his argueta which made his oxygen saturation go down at 60s/50s and patient was found altered mental status. Code met was called immediately. Patient was transferred to ICU and intubated, patient currently on 2 pressors, intubated with 100% FiO2, renal function noted to be decline, nephrology consulted. Discussed with [facility] physician Dr. Thompson and requested call back on Saturday. Poor prognosis, continue to monitor with aggressive supportive care. Also called family/ to update clinical status. 06/19: Repeat COVID test was positive. cont cefepime, remdesivir per ID recommendation. follow inflammatory markers, cbc, bmp. placed on heparin drip for atrial fib 06/20: Remains on mechanical ventilation, on 2 pressors, on heparin drip. discussed with and daughter by phone. Renal function declining. cont supportive care for now. 06/21: Renal function cont to decline, urine outpt sig decreased. started on lasix 80mg BID, plan to follow urine output, if no improvement patient need to start on HD. called and daughter today. updated all clinical details 06/22: Renal function continues to decline with uremia and hyperkalemia. Will need to proceed with hemodialysis. Nephrology discussed with the family and they agrees for the hemodialysis. Patient remains on pressor support and mechanical ventilation. Vas-Cath placed today by vascular started on hemodialysis today. 06/23: 2nd round of HD today, remains on 2 pressors. per RN not tolerating TF, has no record of BM since 06/18. start on stool softner. follow cbc/bmp. updated family( and daughter) by phone -all question answered to best of my knowledge and to their satisfaction. Patient remains critically ill with a very poor prognosis. 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 06/25/2020 continue supportive care very poor prognosis 06/26/2020 continue supportive care very poor prognosis family updated 06/27/2020 continue supportive care and weaning if possible 06/28/2020 continue supportive care, talk with at length 06/29: Resumed care. K level persistently high. give one dose of bicarbonate, plan for HD today, recheck k after HD. updated family by phone 06/30: updated family by phone. Patient remains on amiodarone drip and vasopressin. Getting HD at the bedside. Tolerating tube feeding at low rate. 07/01: Hb dropped to 6.4 today, transfuse one unit PRBC. patient is off pressor today, remains on amioderone. cont to monitor 07/02: Called patient and updated clinical details. Patient remains critically ill, still intubated. Patient's oxygen requirement and PEEP pressure has went down. Continue weaning protocol per critical care recommendation. Patient remains off pressor. Continue to wean off from amiodarone and plan to rate control with p.o. medications. Tolerating tube feeding. H&H stable today. Order for stool for occult blood. Monitor H&H and BMP. Continue to follow clinically 07/03: discussed with [facility] physician today. Patient back on 100percent Fio2 since last night. planned for emergent Hd today. spiked fever, start IV Cefepime + Vancomycin renally dosed. Restarted Levophed today, remains on amiodarone drip. Patient family was updated by critical care attending today. 07/04: Patient has hemodialysis yesterday and also plan for today for volume ov erload and pulmonary edema. Patient currently on 80% FiO2. Remains on Levophed and amiodarone. Hemoglobin dropped to 6.7 without any evidence of active bleeding. LFTs remain stable. Repeat Covid test on 06/30 and 07/03 remains positive. Will transfuse another unit of packed RBC today. Called family for update -explained family that patient is critically ill with very poor prognosis. 07/05: Patient on 70% FiO2 with PEEP of 14. h/h stable after transfusion. hyperkalemia improved, cont sodiumbicarbonate pill with TF. follow BMP. off levophed today, remains on amioderone. poor prognosis. 07/06: Patient remains on amiodarone drip, maintaining BP without any pressor. FiO2 requirement trended down to 60% with PEEP of 14. Continue to follow clinically. Plan to wean off amiodarone drip as tolerated. Wean off from sedation as tolerated. Updated family. Patient remains critically ill with poor prognosis. 07/07: Called family for update. Off amiodarone drip today, patient also off pressor. FiO2 requirement trended up again to 80-100%. Continue to provide supportive care, monitor clinically. Having difficulty to wean off from the vent support. Patient is persistently positive for COVID-19 and COVID-19 antibody is nonreactive. Patient remains critically ill with very poor progn osis. 07/08: Continue supportive care. 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 Prognosis remains guarded to poor. Management per team. Critical care time 35-minute 07/09/20 patient is tachycardic. Heart rate 121. Hemoglobin 7.3. Patient is having hemodialysis. Continue supportive care. Patient having difficulty to wean off from the vent support. Prognosis is poor. Nephrology and cardiology follow-up. Recheck CBC BMP in the morning. Continue current management. 07/10/20 patient seen and examined, remains on full ventilator patient is doing better. Patient is off pressor. heart rate 123. Hemoglobin 6.8 and hematocrit 20.7. WBC is 18.1. Continue supportive care. Patient having difficulty to wean off from the vent support. We will started on Zosyn 4.5 g IV every 8 hours. Will transfuse 1 unit of packed red blood cell. Prognosis is poor. Nephrology and cardiology follow up. Recheck CBC BMP in the morning History Interval history: 07/10/20 patient seen and examined, remains on full ventilator patient is doing better. Patient is off pressor. heart rate 123. Hemoglobin 6.8 and hematocrit 20.7. Continue supportive care. Patient having difficulty to wean off from the vent support. Prognosis is poor. Nephrology and cardiology follow up. Hospitalist Physical - Constitutional Vitals: Temp Pulse Resp BP Pulse Ox 98.1 F 123 H 21 122/68 95 07/10/20 08:00 07/10/20 08:46 07/10/20 08:46 07/10/20 08:46 07/10/20 08:46 General appearance: Present: mild distress, well-nourished - EENT Eyes: Present: PERRL, EOM intact ENT: hearing intact, clear oral mucosa - Neck Neck: Present: supple, normal ROM - Respiratory Respiratory effort: labored Respiratory: bilateral: diminished - Cardiovascular Rhythm: regular Heart Sounds: Present: S1 & S2 - Extremities Extremities: no ischemia, pulses intact Extremity abnormal: edema Peripheral Pulses: within normal limits - Abdominal General gastrointestinal: soft, non-tender, normal bowel sounds - Integumentary Integumentary: Present: clear, warm, dry - Psychiatric Psychiatric: other - Neurologic Neurologic: CNII-XII intact HEART Score - HEART Score Troponin: Troponin T < 0.010 ng/mL (0.00-0.029) 06/17/20 12:33 Results - Labs CBC & Chem 7: 07/10/20 03:55 07/10/20 03:55 Labs: Laboratory Last Values WBC 18.1 K/mm3 (4.5-11.0) H 07/10/20 03:55 RBC 2.37 M/mm3 (3.65-5.03) L 07/10/20 03:55 Hgb 6.8 gm/dl (11.8-15.2) L 07/10/20 03:55 Hct 20.7 % (35.5-45.6) L 07/10/20 03:55 MCV 87 fl (84-94) 07/10/20 03:55 MCH 29 pg (28-32) 07/10/20 03:55 MCHC 33 % (32-34) 07/10/20 03:55 RDW 16.9 % (13.2-15.2) H 07/10/20 03:55 Plt Count 225 K/mm3 (140-440) 07/10/20 03:55 Lymph % (Auto) 11.5 % (13.4-35.0) L 07/08/20 04:00 Perkins % (Auto) 6.2 % (0.0-7.3) 07/08/20 04:00 Eos % (Auto) 3.4 % (0.0-4.3) 07/08/20 04:00 Baso % (Auto) 0.7 % (0.0-1.8) 07/08/20 04:00 Lymph # (Auto) 1.2 K/mm3 (1.2-5.4) 07/08/20 04:00 Perkins # (Auto) 0.6 K/mm3 (0.0-0.8) 07/08/20 04:00 Eos # (Auto) 0.4 K/mm3 (0.0-0.4) 07/08/20 04:00 Baso # (Auto) 0.1 K/mm3 (0.0-0.1) 07/08/20 04:00 Add Manual Diff Complete 07/07/20 05:04 Total Counted 100 07/07/20 05:04 Seg Neutrophils % 78.2 % (40.0-70.0) H 07/08/20 04:00 Seg Neuts % (Manual) 82.0 % (40.0-70.0) H 07/07/20 05:04 Band Neutrophils % 3.0 % 06/26/20 05:47 Lymphocytes % (Manual) 15.0 % (13.4-35.0) 07/07/20 05:04 Reactive Lymphs % (Man) 1.0 % 06/23/20 04:00 Monocytes % (Manual) 3.0 % (0.0-7.3) 07/07/20 05:04 Metamyelocytes % 1.0 % 06/26/20 05:47 Nucleated RBC % 1.0 % (0.0-0.9) H 07/07/20 05:04 Seg Neutrophils # 8.0 K/mm3 (1.8-7.7) H 07/08/20 04:00 Seg Neutrophils # Man 6.0 K/mm3 (1.8-7.7) 07/07/20 05:04 Band Neutrophils # 0.0 K/mm3 07/07/20 05:04 Lymphocytes # (Manual) 1.1 K/mm3 (1.2-5.4) L 07/07/20 05:04 Abs React Lymphs (Man) 0.0 K/mm3 07/07/20 05:04 Monocytes # (Manual) 0.2 K/mm3 (0.0-0.8) 07/07/20 05:04 Eosinophils # (Manual) 0.0 K/mm3 (0.0-0.4) 07/07/20 05:04 Basophils # (Manual) 0.0 K/mm3 (0.0-0.1) 07/07/20 05:04 Metamyelocytes # 0.0 K/mm3 07/07/20 05:04 Myelocytes # 0.0 K/mm3 07/07/20 05:04 Promyelocytes # 0.0 K/mm3 07/07/20 05:04 Blast Cells # 0.0 K/mm3 07/07/20 05:04 Pathologist Review Not Reportable 06/26/20 05:47 WBC Morphology Not Reportable 07/07/20 05:04 Hypersegmented Neuts Not Reportable 07/07/20 05:04 Hyposegmented Neuts Not Reportable 07/07/20 05:04 Hypogranular Neuts Not Reportable 07/07/20 05:04 Smudge Cells Not Reportable 07/07/20 05:04 Toxic Granulation Not Reportable 07/07/20 05:04 Toxic Vacuolation Not Reportable 07/07/20 05:04 Dohle Bodies Not Reportable 07/07/20 05:04 Pelger-Huet Anomaly Not Reportable 07/07/20 05:04 Carlito Rods Not Reportable 07/07/20 05:04 Platelet Estimate Consistent w auto 07/07/20 05:04 Clumped Platelets Not Reportable 07/07/20 05:04 Plt Clumps, EDTA Not Reportable 07/07/20 05:04 Large Platelets Not Reportable 07/07/20 05:04 Giant Platelets Not Reportable 07/07/20 05:04 Platelet Satelliting Not Reportable 07/07/20 05:04 Plt Morphology Comment Not Reportable 07/07/20 05:04 RBC Morphology Normal 07/07/20 05:04 Dimorphic RBCs Not Reportable 07/07/20 05:04 Polychromasia Not Reportable 07/07/20 05:04 Hypochromasia Not Reportable 07/07/20 05:04 Poikilocytosis Not Reportable 07/07/20 05:04 Anisocytosis Not Reportable 07/07/20 05:04 Microcytosis Not Reportable 07/07/20 05:04 Macrocytosis Not Reportable 07/07/20 05:04 Spherocytes Not Reportable 07/07/20 05:04 Pappenheimer Bodies Not Reportable 07/07/20 05:04 Sickle Cells Not Reportable 07/07/20 05:04 Target Cells Not Reportable 07/07/20 05:04 Tear Drop Cells Not Reportable 07/07/20 05:04 Ovalocytes Not Reportable 07/07/20 05:04 Helmet Cells Not Reportable 07/07/20 05:04 [place] Bodies Not Reportable 07/07/20 05:04 Wellman Rings Not Reportable 07/07/20 05:04 Ursa Cells Not Reportable 07/07/20 05:04 Bite Cells Not Reportable 07/07/20 05:04 Crenated Cell Not Reportable 07/07/20 05:04 Elliptocytes Not Reportable 07/07/20 05:04 Acanthocytes (Spur) Not Reportable 07/07/20 05:04 Rouleaux Not Reportable 07/07/20 05:04 Hemoglobin C Crystals Not Reportable 07/07/20 05:04 Schistocytes Not Reportable 07/07/20 05:04 Malaria parasites Not Reportable 07/07/20 05:04 Victoriano Bodies Not Reportable 07/07/20 05:04 Hem Pathologist Commnt No 07/07/20 05:04 PT 17.4 Sec. (12.2-14.9) H 06/26/20 05:47 INR 1.44 (0.87-1.13) H 06/26/20 05:47 APTT 28.5 Sec. (24.2-36.6) 06/26/20 05:47 D-Dimer 6608.00 ng/mlDDU (0-234) H 07/03/20 14:50 Heparin Anti-Xa Level < 0.10 U.I./ml (0.3-0.7) L 06/26/20 01:30 ABG pH 7.412 (7.320-7.450) 07/10/20 03:49 POC ABG pCO2 43.9 mmHg (32.0-48.0) 07/10/20 03:49 ABG pCO2 56.4 mm Hg 07/05/20 04:30 POC ABG pO2 94.4 mmHg (83-108) 07/10/20 03:49 ABG pO2 151.9 mm Hg (80.0-90.0) H 07/05/20 04:30 POC ABG HCO3 27.3 07/10/20 03:49 ABG HCO3 26.8 mmol/L (20.0-26.0) H 07/05/20 04:30 ABG O2 Saturation 98.7 % (95.0-99.0) 07/05/20 04:30 ABG O2 Content 5.0 (0.0-44) 07/04/20 05:20 POC ABG Base Excess 2.5 07/10/20 03:49 ABG Base Excess 0.1 mmol/L (-2.0-3.0) 07/05/20 04:30 ABG Hemoglobin 7.7 (12.0-17.5) L 07/10/20 03:49 ABG Oxyhemoglobin 96.2 (94-98) 07/10/20 03:49 ABG Carboxyhemoglobin 1.7 % (0.0-5.0) 07/05/20 04:30 ABG Methemoglobin 0.1 (0.0-1.5) 07/10/20 03:49 ABG Sodium 130.3 mmol/L (136.0-145.0) L 07/10/20 03:49 ABG Potassium 4.6 mmol/L (3.40-4.50) H 07/10/20 03:49 ABG Chloride 100.0 mmol/L (98-107) 07/10/20 03:49 ABG Glucose 90 mg/dL (65-95) 07/10/20 03:49 Oxyhemoglobin 96.5 % (95.0-99.0) 07/05/20 04:30 Carboxyhemoglobin 0.9 (0.5-1.5) 07/10/20 03:49 FiO2 75 07/10/20 03:49 Sodium 136 mmol/L (137-145) L 07/10/20 03:55 Potassium 4.9 mmol/L (3.6-5.0) 07/10/20 03:55 Chloride 96.0 mmol/L (98-107) L 07/10/20 03:55 Carbon Dioxide 29 mmol/L (22-30) 07/10/20 03:55 Anion Gap 16 mmol/L 07/10/20 03:55 BUN 76 mg/dL (9-20) H 07/10/20 03:55 Creatinine 3.6 mg/dL (0.8-1.3) H 07/10/20 03:55 Estimated GFR 21 ml/min 07/10/20 03:55 BUN/Creatinine Ratio 21 % 07/10/20 03:55 Glucose 84 mg/dL (75-100) 07/10/20 03:55 POC Glucose 87 mg/dL (70-105) 07/10/20 05:01 Lactic Acid 1.10 mmol/L (0.7-2.0) 07/10/20 03:55 Calcium 7.4 mg/dL (8.4-10.2) L 07/10/20 03:55 Phosphorus 9.40 mg/dL (2.5-4.5) H 06/30/20 03:50 Magnesium 2.70 mg/dL (1.7-2.3) H 06/18/20 20:33 Ferritin 1171.0 ng/mL (30.0-300.0) H 07/03/20 14:50 Total Bilirubin 0.60 mg/dL (0.1-1.2) 07/05/20 08:21 Direct Bilirubin 0.5 mg/dL (0-0.2) H 07/05/20 08:21 Indirect Bilirubin 0.1 mg/dL 07/05/20 08:21 AST 75 units/L (5-40) H 07/05/20 08:21 ALT 86 units/L (7-56) H 07/05/20 08:21 Alkaline Phosphatase 107 units/L (35-129) 07/05/20 08:21 Lactate Dehydrogenase 525 units/L (91-180) H 07/03/20 14:50 Total Creatine Kinase 618 units/L (55-170) H 06/29/20 Unknown Troponin T < 0.010 ng/mL (0.00-0.029) 06/17/20 12:33 C-Reactive Protein 31.50 mg/dL (0.00-1.30) H 07/03/20 14:50 Total Protein 5.6 g/dL (6.3-8.2) L D 07/05/20 08:21 Albumin 1.9 g/dL (3.9-5) L 07/05/20 08:21 Albumin/Globulin Ratio 0.5 % 07/05/20 08:21 Triglycerides 258 mg/dL (2-149) H 07/05/20 08:21 Procalcitonin 15.78 ng/mL (<0.15) 07/03/20 14:50 Arterial Blood Glucose 90 mg/dL (65-95) 07/10/20 03:49 Arterial Blood Ionized Calcium 4.2 mg/dL (4.6-5.3) L 07/10/20 03:49 Urine Color Yellow (Yellow) 06/17/20 15:57 Urine Turbidity Clear (Clear) 06/17/20 15:57 Urine pH 6.0 (5.0-7.0) 06/17/20 15:57 Ur Specific [place] 1.019 (1.003-1.030) 06/17/20 15:57 Urine Protein 30 mg/dl mg/dL (Negative) 06/17/20 15:57 Urine Glucose (UA) Neg mg/dL (Negative) 06/17/20 15:57 Urine Ketones Neg mg/dL (Negative) 06/17/20 15:57 Urine Blood Sm (Negative) 06/17/20 15:57 Urine Nitrite Neg (Negative) 06/17/20 15:57 Ur Reducing Substances Not Reportable 06/17/20 15:57 Urine Bilirubin Neg (Negative) 06/17/20 15:57 Urine Ictotest Not Reportable 06/17/20 15:57 Urine Urobilinogen < 2.0 mg/dL (<2.0) 06/17/20 15:57 Ur Leukocyte Esterase Neg (Negative) 06/17/20 15:57 Urine WBC (Auto) 1.0 /HPF (0.0-6.0) 06/17/20 15:57 Urine RBC (Auto) 2.0 /HPF (0.0-6.0) 06/17/20 15:57 Urine Mucus Few /HPF 06/17/20 15:57 Urine Creatinine 192.4 mg/dL (0.1-20.0) H 06/18/20 15:00 Urine Sodium 28 mmol/L 06/18/20 15:00 Urine Chloride 31.1 mmolL (110-250) L 06/18/20 15:00 Nasal Screen MRSA (PCR) Negative (Negative) 06/19/20 10:38 Vancomycin Trough 22.7 ug/mL (5.0-20.0) H 06/20/20 08:25 Coronavirus (PCR) Positive (Negative) A 07/03/20 10:10 Hepatitis A IgM Ab Non-reactive (NonReactive) 06/22/20 17:00 Hep Bs Antigen Non-reactive (Negative) 06/22/20 17:00 Hep B Core IgM Ab Non-reactive (NonReactive) 06/22/20 17:00 Hepatitis C Antibody Non-reactive (NonReactive) 06/22/20 17:00 SARS-CoV-2 IgG Ab Nonreactive (NonReactive) 07/04/20 05:20 Blood Type A POSITIVE 07/04/20 09:25 Antibody Screen Negative 07/04/20 09:25 Crossmatch See Detail 07/04/20 09:25 - Diagnostic Impressions Diagnostic Impressions: Echocardiogram 06/29/20 06:00 Transthoracic Echocardiogram Indication: A-fib BP: 105/47 HR: 99 Conclusions *The study is technically very difficult and limited due to poor acoustic windows. *Global left ventricular wall motion and contractility are within normal limits. *The estimated ejection fraction is 55-60%. *There is no pericardial effusion. Findings Procedure Info: The study quality is technically difficult. The study is technically limited due to poor acoustic windows. Left Ventricle: Global left ventricular wall motion and contractility are within normal limits. Global left ventricular systolic function is normal. The estimated ejection fraction is 55-60%. Left Atrium: The left atrium is not well visualized. Right Ventricle: The right ventricle is not well visualized. Right Atrium: The right atrium is not well visualized. Aortic Valve: The aortic valve is not well visualized. Mitral Valve: The mitral valve is not well visualized. Tricuspid Valve: The tricuspid valve is not well visualized. Pulmonic Valve: The pulmonic valve is not well visualized. Pericardium: There is no pericardial effusion. Venous: There is no change in the dimension of the inferior vena cava with respiration consistent with markedly increased right atrial pressure. Newell/IV: Voiding Method Indwelling Catheter Active Medications - Current Medications Current Medications: Generic Name Dose Route Start Last Admin Trade Name Freq PRN Reason Stop Dose Admin Acetaminophen 650 mg 06/17/20 14:17 07/03/20 09:16 Acetaminophen 325 Mg Tab PO 650 mg Q4H PRN Administration Pain MILD(1-3)/Fever >100.5/ROBERTS Amiodarone HCl 200 mg 07/08/20 12:30 07/10/20 10:28 Amiodarone 200 Mg Tab PO 200 mg BID CONNOR Administration Lipase/Protease/Amylase 1 each 06/19/20 12:15 Lipase 10,500/Protease 25,000/Amylase 43,750 (Units) Dr Cap FEEDTUBE PRN PRN For Clogged Feeding Tube Ascorbic Acid 250 mg 06/17/20 22:00 07/10/20 10:27 Ascorbic Acid 250 Mg Tab PO 250 mg BID CONNOR Administration Cholecalciferol 1,000 unit 06/18/20 10:00 07/10/20 10:28 Cholecalciferol (Vit D3) 1000 Unit (25 Mcg) Tab PO 1,000 unit DAILY CONNOR Administration Dexamethasone 6 mg 07/03/20 14:00 07/10/20 10:28 Dexamethasone 4 Mg/Ml Vial IV 07/13/20 13:59 6 mg DAILY CONNOR Administration Docusate Sodium 100 mg 06/23/20 15:00 07/10/20 10:28 Docusate Sodium 100 Mg/10 Ml Oral Liqd FEEDTUBE 100 mg BID CONNOR Administration Famotidine 20 mg 06/20/20 11:00 07/10/20 10:28 Famotidine 20 Mg/2 Ml Inj IV 20 mg DAILY CONNOR Administration Fentanyl 50 mcg 06/18/20 01:02 07/09/20 00:20 Fentanyl 100 Mcg/2 Ml Inj IV 50 mcg Q10MIN PRN Administration ANALGESIA Heparin Sodium (Porcine) 5,000 unit 06/22/20 12:53 06/30/20 13:36 Heparin 10,000 Unit/1 Ml Vial IV 5,000 unit PAM PRN Administration hemodialysis Heparin Sodium (Porcine) 5,000 unit 07/03/20 22:00 07/09/20 21:29 Heparin 5,000 Unit/1 Ml Vial SUB-Q 5,000 unit Q8HR CONNOR Administration Hydrophilic Ointment 1 applic 06/17/20 22:52 07/02/20 20:45 Lip Therapy Vaseline TP 1 applic Q2HR PRN Administration Dry Lips Propofol 1,000 mg in 100 mls @ 3.402 mls/hr 06/18/20 01:00 07/10/20 08:36 Diprivan 10 Mg/Ml IV 10 mcg/kg/min TITR CONNOR 6.804 mls/hr Administration Protocol 5 MCG/KG/MIN Fentanyl Citrate 2,000 mcg in 100 mls @ 5.67 mls/hr 06/18/20 02:00 07/10/20 08:35 Fentanyl Drip Premix IV 3 mcg/kg/hr TITR CONNOR 17.01 mls/hr Administration Protocol 1 MCG/KG/HR Sodium Chloride 500 mls @ 1 mls/hr 06/18/20 09:38 06/19/20 21:37 Nacl 0.9% 500 Ml IV 0 mls/hr DIRECT PRN Infusion ARTERIAL LINE FLUSH Norepinephrine 4 mg in 250 mls @ 7.5 mls/hr 07/08/20 02:06 07/10/20 06:30 Levophed Drip 4 Mg/Ns 250 Ml IV 0 mcg/min TITR CONNOR 0 mls/hr Titration Protocol 2 MCG/MIN Sodium Chloride 100 mls @ 999 mls/hr 07/08/20 12:19 Nacl 0.9% IV PAM PRN Hypotension Piperacillin Sod/Tazobactam Sod 4.5 gm in 100 mls @ 200 mls/hr 07/10/20 12:00 Zosyn/Ns 4.5gm/100ml IV Q8H [facility] Protocol Insulin Human Regular 0 units 06/18/20 12:00 07/09/20 23:57 Insulin Regular, Human 100 Units/1 Ml SUB-Q Not Given Q6HR [facility] Protocol Multi-Ingred Cream/Lotion/Oil/Oint 1 applic 06/17/20 22:52 Mineral Oil/Petrolatum, White Ophth Oint 3.5 Gm OU Q4HR PRN Dry Eye(s) Ondansetron HCl 4 mg 06/17/20 14:17 Ondansetron 4 Mg/2 Ml Inj IV Q8H PRN Nausea And Vomiting Polyethylene Glycol 17 gm 06/23/20 15:00 07/10/20 10:28 Polyethylene Glycol 3350 17 Gm Powder PO 17 gm QDAY CONNOR Administration Quetiapine Fumarate 200 mg 06/28/20 13:00 07/10/20 10:28 Quetiapine 200 Mg Tab PO 200 mg BID CONNOR Administration Simple Syrup 15 ml 06/19/20 12:15 Simple Syrup 15 Ml FEEDTUBE PRN PRN Hypoglycemia Simple Syrup 30 ml 06/19/20 12:15 Simple Syrup 15 Ml FEEDTUBE PRN PRN Hypoglycemia Sodium Bicarbonate 325 mg 06/19/20 12:15 Sodium Bicarbonate 325 Mg Tab FEEDTUBE PRN PRN For Clogged Feeding Tube Sodium Bicarbonate 650 mg 07/04/20 10:00 07/10/20 10:28 Sodium Bicarbonate 650 Mg Tab PO 650 mg TID CONNOR Administration Sodium Chloride 10 ml 06/17/20 22:00 07/09/20 21:30 Sodium Chloride 0.9% 10 Ml Flush Syringe IV 10 ml BID CONNOR Administration Sodium Chloride 10 ml 06/17/20 14:17 Sodium Chloride 0.9% 10 Ml Flush Syringe IV PRN PRN LINE FLUSH Sodium Polystyrene Sulfonate 15 gm 07/03/20 11:19 07/05/20 10:36 Sodium Polystyrene 15 Gm/60 Ml Oral Liqd PO 15 gm Q6HR PRN Administration Hyperkalemia Zinc Sulfate 220 mg 06/17/20 22:00 07/10/20 10:28 Zinc Sulfate 220 Mg Cap PO 220 mg BID CONNOR Administration Nutrition/Malnutrition Assess - Dietary Evaluation Nutrition/Malnutrition Findings: Nutrition Notes Start: 06/18/20 10:28 Freq: Status: Active Protocol: Document 07/05/20 12:08 AL (Rec: 07/05/20 12:33 [place] [id number]) Co-Sign 07/05/20 12:08 NHALL Nutrition Notes Initial or Follow up Reassessment Current Diagnosis Acute Kidney Injury,Sepsis, Respiratory Failure Other Pertinent Diagnosis COVID-19 (+), pneu Current Diet Nepro 1.8 at 40ml/hr Labs/Tests K 6 BUN 80 Cr 4.3 Na 133 Pertinent Medications Reglan Propofol at 10.2046 ml/hr (269 kcal) Colace Kionex Decadron Miralax Height 6 ft Weight 138.4 kg [place] Body Weight (kg) 80.90 BMI 41.3 Weight Status Obese Subjective/Other Information FU for stable TF. Pt tolerating TF at 40 ml/hr ( goal rate). Percent of energy/protein needs met: 89%/48% Burn Absent Trauma Absent Current % PO Negligible Minimum of two criteria No physical signs of malnutrition #2 Nutrition Diagnosis Overweight/obesity Diagnosis Progress(for reassessment Continues documentation) #1 Nutrition Diagnosis Inadequate oral intake Diagnosis Progress(for reassessment Continues documentation) Is patient on ventilator? Yes Is Patient Ambulatory and/or Out of Bed No REE-([facility]-confined to bed) 2670.696 Kcal/Kg value to use for calculation 14 Approximate Energy Requirements Using 1938 kcal/Kg Calculation Used for Recommendations Kcal/kg Additional Notes Protein needs up to >2 g/kg IBW: 162 g Fluid needs: 1,000 ml + output Nutrition Intervention Change Diet Order: TF Nutrition Support: Nepro 1.8 at 40ml/hr. Flush 70 ml q4hr for hyponatremia Flush 170ml q4h once resolved If proning regimen: Prone (12 hr): 20 ml/hr. Flush 85 ml q4h. Supine: 60 ml/hr Flush 255 ml q4h. [ End ] Kcal 1,728 Protein (gm) 78 Fluid (mL) 698 Goal #1 Tolerate TF at goal rate Goal #2 Meet energy and protein needs as best as possible. Anticipated Discharge Needs: Unable to determine at the time. Follow-Up By: 07/12/20 Additional Comments F/U for TF tolerance and labs, wt, and vent status - Malnutrition Assessment Minimum of two criteria: No - Attestation Statement I have reviewed and agreed w/ Malnutrition eval & tx plan: Yes
[2020-07-10] MEDS ORDERED: PIPERACIL-TAZO 2.25 GM/50 ML 2.25 GM/50 ML BAG IV SCH (12:00)
[2020-07-10 12:49] LABS: Band Neutrophils # (Manual) 0.2 K/mm3; Myelocytes # (Manual) 0.4 K/mm3; Total Cells Counted 100
[2020-07-10 12:50] LABS: Stomatocytes Rare
[2020-07-10 12:51] LABS: Macrocytosis Rare; Platelet Estimate Consistent w Auto
[2020-07-10] MEDS: HEPARIN 5,000 UNIT/1 ML VIAL SUB-Q SCH ×3 (13:21→21:46)
[2020-07-10] MEDS: INSULIN REGULAR, HUMAN 100 UNITS/1 ML SUB-Q SCH ×2 (13:22→18:32)
--- NOTE | 2020-07-10 14:00 | Progress Note ---
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 Kidney function worsened and patient developed hyperkalemia, refractory acidosis and worsening azotemia. Hemodialysis initiated on June 22. Hemodynamic s tatus had improved and patient has been weaned off of vasopressors but is now back on Levophed. Undergoing hemodialysis today with goal 3.5 L ultrafiltration blood flow is 300 dialysate flow 600mls/min (2) Severe sepsis with septic shock Current Visit: Yes Status: Acute Plan to address problem: Continue antibiotics per infectious disease party plan sales consultant appropriately adjusted to the degree of renal function. Patient is back on vasopressors. (3) Hyperkalemia Current Visit: Yes Status: Acute Plan to address problem: Potassium has improved with intensive dialysis. Follow-up (4) Metabolic acidosis Current Visit: Yes Status: Acute Plan to address problem: Acidosis improving with dialysis. (5) Acute respiratory failure with hypoxia Current Visit: Yes Status: Acute Plan to address problem: Continue respiratory management by pulmonary (6) Pneumonia due to COVID-19 virus Current Visit: Yes Status: Acute Plan to address problem: IV Dexamethasone Supplemental oxygen/Respiratory support as needed Proning as tolerated Remdesevir contra-indicated due to Kidney failure Prophylactic anticoagulation Trend inflammatory markers to assess disease progression and prognosis (7) Transaminitis Current Visit: Yes Status: Acute Plan to address problem: Hypoperfusion injury. Follow-up liver function test Subjective Date of service: 07/10/20 Principal diagnosis: ARF; Septic Shock; COVID-19 PNA; Atrial fibrillation; Obesity Interval history: Patient was not examined today due to the COVID-19 status to limit exposure of the consulting operating room surgical technician and also for PPE preservation. I reviewed multidisciplinary notes and discussed with staff and physicians as needed. Patient is sedated on propofol and fentanyl. He is on anticoagulation with intravenous heparin. Patient is back on vasopressors. He had hemodialysis yesterday Objective - Exam Narrative Exam: Patient was not examined at the bedside today due to personal protective equipment preservation during the COVID-19 pandemic. - Vital Signs Vital signs: Vital Signs - 12hr 07/10/20 07/10/20 07/10/20 02:00 02:15 02:30 Temperature Pulse Rate 105 H 93 H 101 H Pulse Rate [ From Monitor] Respiratory 25 H 25 H 25 H Rate Blood Pressure 86/45 80/53 86/50 O2 Sat by Pulse 99 99 99 Oximetry 07/10/20 07/10/20 07/10/20 02:45 03:00 03:16 Temperature Pulse Rate 97 H 109 H 104 H Pulse Rate [ From Monitor] Respiratory 25 H 25 H 25 H Rate Blood Pressure 97/52 98/58 102/54 O2 Sat by Pulse 99 98 98 Oximetry 07/10/20 07/10/20 07/10/20 03:21 03:30 03:46 Temperature 98.3 F Pulse Rate 99 H 98 H Pulse Rate [ From Monitor] Respiratory 25 H 21 Rate Blood Pressure 99/51 103/56 O2 Sat by Pulse 97 97 Oximetry 07/10/20 07/10/20 07/10/20 03:47 04:00 04:15 Temperature Pulse Rate 103 H 105 H 103 H Pulse Rate [ 99 H From Monitor] Respiratory 26 H 25 H Rate Blood Pressure 99/51 100/52 102/58 O2 Sat by Pulse 97 97 97 Oximetry 07/10/20 07/10/20 07/10/20 04:30 04:45 05:00 Temperature Pulse Rate 99 H 109 H 99 H Pulse Rate [ From Monitor] Respiratory 25 H 25 H 25 H Rate Blood Pressure 108/56 102/61 109/54 O2 Sat by Pulse 97 96 97 Oximetry 07/10/20 07/10/20 07/10/20 05:15 05:30 05:46 Temperature Pulse Rate 104 H 106 H 131 H Pulse Rate [ From Monitor] Respiratory 25 H 27 H 21 Rate Blood Pressure 113/52 113/52 158/73 O2 Sat by Pulse 97 94 93 Oximetry 07/10/20 07/10/20 07/10/20 06:00 06:16 06:30 Temperature Pulse Rate 130 H 122 H 129 H Pulse Rate [ From Monitor] Respiratory 15 18 17 Rate Blood Pressure 155/83 156/73 147/79 O2 Sat by Pulse 92 92 91 Oximetry 07/10/20 07/10/20 07/10/20 06:45 07:00 07:15 Temperature Pulse Rate 125 H 118 H 109 H Pulse Rate [ From Monitor] Respiratory 16 22 13 Rate Blood Pressure 139/72 139/72 121/63 O2 Sat by Pulse 92 92 93 Oximetry 07/10/20 07/10/20 07/10/20 07:30 07:45 08:00 Temperature 98.1 F Pulse Rate 130 H 126 H 122 H Pulse Rate [ From Monitor] Respiratory 16 17 22 Rate Blood Pressure 114/62 108/58 116/63 O2 Sat by Pulse 92 94 94 Oximetry 07/10/20 07/10/20 07/10/20 08:11 08:15 08:20 Temperature Pulse Rate 131 H 122 H 124 H Pulse Rate [ 131 H From Monitor] Respiratory 14 17 Rate Blood Pressure 131/70 131/70 O2 Sat by Pulse 94 95 95 Oximetry 07/10/20 07/10/20 07/10/20 08:30 08:46 09:00 Temperature Pulse Rate 137 H 123 H 121 H Pulse Rate [ From Monitor] Respiratory 25 H 21 19 Rate Blood Pressure 119/65 122/68 129/69 O2 Sat by Pulse 95 95 96 Oximetry 07/10/20 07/10/20 07/10/20 09:16 09:30 09:45 Temperature Pulse Rate 114 H 118 H 124 H Pulse Rate [ From Monitor] Respiratory 25 H 17 13 Rate Blood Pressure 122/62 113/63 115/67 O2 Sat by Pulse 96 96 96 Oximetry 07/10/20 07/10/20 07/10/20 10:00 10:16 10:30 Temperature Pulse Rate 118 H 128 H 116 H Pulse Rate [ From Monitor] Respiratory 18 15 18 Rate Blood Pressure 114/60 114/63 111/57 O2 Sat by Pulse 95 94 94 Oximetry 07/10/20 07/10/20 07/10/20 10:45 11:00 11:15 Temperature Pulse Rate 126 H 127 H 127 H Pulse Rate [ From Monitor] Respiratory 17 23 17 Rate Blood Pressure 117/67 104/56 113/62 O2 Sat by Pulse Oximetry 07/10/20 07/10/20 07/10/20 11:20 11:30 11:45 Temperature Pulse Rate 117 H 123 H 132 H Pulse Rate [ From Monitor] Respiratory 17 22 Rate Blood Pressure 113/62 109/64 108/60 O2 Sat by Pulse Oximetry 07/10/20 07/10/20 07/10/20 12:00 12:15 12:30 Temperature 99.1 F Pulse Rate 124 H 116 H 117 H Pulse Rate [ 113 H From Monitor] Respiratory 20 24 18 Rate Blood Pressure 109/65 116/64 123/65 O2 Sat by Pulse 94 Oximetry 07/10/20 07/10/20 07/10/20 12:45 13:00 13:15 Temperature Pulse Rate 111 H 126 H 120 H Pulse Rate [ From Monitor] Respiratory 18 18 15 Rate Blood Pressure 116/59 105/63 110/62 O2 Sat by Pulse Oximetry - Lab 07/10/20 03:55 07/10/20 03:55 Most recent lab results ABG pH 7.412 (7.320-7.450) 07/10/20 03:49 ABG pCO2 56.4 mm Hg 07/05/20 04:30 ABG pO2 151.9 mm Hg (80.0-90.0) H 07/05/20 04:30 ABG HCO3 26.8 mmol/L (20.0-26.0) H 07/05/20 04:30 ABG O2 Saturation 98.7 % (95.0-99.0) 07/05/20 04:30 Calcium 7.4 mg/dL (8.4-10.2) L 07/10/20 03:55 Phosphorus 9.40 mg/dL (2.5-4.5) H 06/30/20 03:50 Magnesium 2.70 mg/dL (1.7-2.3) H 06/18/20 20:33 Urine Creatinine 192.4 mg/dL (0.1-20.0) H 06/18/20 15:00 Urine Sodium 28 mmol/L 06/18/20 15:00 Medications & Allergies - Medications Allergies/Adverse Reactions: Allergies No Known Allergies Allergy (Unverified 06/17/20 14:24) Home Medications: Home Medications Medication Instructions Recorded Confirmed Last Taken Type Losartan/Hydrochlorothiazide 1 each PO QDAY 06/19/20 06/19/20 Unknown History [Losartan-Hctz 100-25 mg Tab] amLODIPine [Norvasc] 5 mg PO DAILY 06/19/20 06/19/20 Unknown History Active Medications: Generic Name Dose Route Start Last Admin Trade Name Freq PRN Reason Stop Dose Admin Acetaminophen 650 mg 06/17/20 14:17 07/03/20 09:16 Acetaminophen 325 Mg Tab PO 650 mg Q4H PRN Administration Pain MILD(1-3)/Fever >100.5/ROBERTS Amiodarone HCl 200 mg 07/08/20 12:30 07/10/20 10:28 Amiodarone 200 Mg Tab PO 200 mg BID CONNOR Administration Lipase/Protease/Amylase 1 each 06/19/20 12:15 Lipase 10,500/Protease 25,000/Amylase 43,750 (Units) Dr Kulkarni FEEDTUBE PRN PRN For Clogged Feeding Tube Ascorbic Acid 250 mg 06/17/20 22:00 07/10/20 10:27 Ascorbic Acid 250 Mg Tab PO 250 mg BID CONNOR Administration Cholecalciferol 1,000 unit 06/18/20 10:00 07/10/20 10:28 Cholecalciferol (Vit D3) 1000 Unit (25 Mcg) Tab PO 1,000 unit DAILY CONNOR Administration Dexamethasone 6 mg 07/03/20 14:00 07/10/20 10:28 Dexamethasone 4 Mg/Ml Vial IV 07/13/20 13:59 6 mg DAILY CONNOR Administration Docusate Sodium 100 mg 06/23/20 15:00 07/10/20 10:28 Docusate Sodium 100 Mg/10 Ml Oral Liqd FEEDTUBE 100 mg BID CONNOR Administration Famotidine 20 mg 06/20/20 11:00 07/10/20 10:28 Famotidine 20 Mg/2 Ml Inj IV 20 mg DAILY CONNOR Administration Fentanyl 50 mcg 06/18/20 01:02 07/09/20 00:20 Fentanyl 100 Mcg/2 Ml Inj IV 50 mcg Q10MIN PRN Administration ANALGESIA Heparin Sodium (Porcine) 5,000 unit 06/22/20 12:53 06/30/20 13:36 Heparin 10,000 Unit/1 Ml Vial IV 5,000 unit PAM PRN Administration hemodialysis Heparin Sodium (Porcine) 5,000 unit 07/03/20 22:00 07/10/20 13:42 Heparin 5,000 Unit/1 Ml Vial SUB-Q 5,000 unit Q8HR CONNOR Administration Hydrophilic Ointment 1 applic 06/17/20 22:52 07/02/20 20:45 Lip Therapy Vaseline TP 1 applic Q2HR PRN Administration Dry Lips Propofol 1,000 mg in 100 mls @ 3.402 mls/hr 06/18/20 01:00 07/10/20 08:36 Diprivan 10 Mg/Ml IV 10 mcg/kg/min TITR CONNOR 6.804 mls/hr Administration Protocol 5 MCG/KG/MIN Fentanyl Citrate 2,000 mcg in 100 mls @ 5.67 mls/hr 06/18/20 02:00 07/10/20 08:35 Fentanyl Drip Premix IV 3 mcg/kg/hr TITR CONNOR 17.01 mls/hr Administration Protocol 1 MCG/KG/HR Sodium Chloride 500 mls @ 1 mls/hr 06/18/20 09:38 06/19/20 21:37 Nacl 0.9% 500 Ml IV 0 mls/hr DIRECT PRN Infusion ARTERIAL LINE FLUSH Norepinephrine 4 mg in 250 mls @ 7.5 mls/hr 07/08/20 02:06 07/10/20 06:30 Levophed Drip 4 Mg/Ns 250 Ml IV 0 mcg/min TITR CONNOR 0 mls/hr Titration Protocol 2 MCG/MIN Sodium Chloride 100 mls @ 999 mls/hr 07/08/20 12:19 Nacl 0.9% IV PAM PRN Hypotension Piperacillin Sod/Tazobactam Sod 2.25 gm in 50 mls @ 100 mls/hr 07/10/20 12:00 07/10/20 13:42 Zosyn/Ns 2.25 Gm/50ml IV 100 mls/hr Q6H [facility] Administration Protocol Insulin Human Regular 0 units 06/18/20 12:00 07/10/20 13:22 Insulin Regular, Human 100 Units/1 Ml SUB-Q Not Given Q6HR [facility] Protocol Multi-Ingred Cream/Lotion/Oil/Oint 1 applic 06/17/20 22:52 Mineral Oil/Petrolatum, White Ophth Oint 3.5 Gm OU Q4HR PRN Dry Eye(s) Ondansetron HCl 4 mg 06/17/20 14:17 Ondansetron 4 Mg/2 Ml Inj IV Q8H PRN Nausea And Vomiting Polyethylene Glycol 17 gm 06/23/20 15:00 07/10/20 10:28 Polyethylene Glycol 3350 17 Gm Powder PO 17 gm QDAY CONNOR Administration Quetiapine Fumarate 200 mg 06/28/20 13:00 07/10/20 10:28 Quetiapine 200 Mg Tab PO 200 mg BID CONNOR Administration Simple Syrup 15 ml 06/19/20 12:15 Simple Syrup 15 Ml FEEDTUBE PRN PRN Hypoglycemia Simple Syrup 30 ml 06/19/20 12:15 Simple Syrup 15 Ml FEEDTUBE PRN PRN Hypoglycemia Sodium Bicarbonate 325 mg 06/19/20 12:15 Sodium Bicarbonate 325 Mg Tab FEEDTUBE PRN PRN For Clogged Feeding Tube Sodium Bicarbonate 650 mg 07/04/20 10:00 07/10/20 13:42 Sodium Bicarbonate 650 Mg Tab PO 650 mg TID CONNOR Administration Sodium Chloride 10 ml 06/17/20 22:00 07/10/20 10:23 Sodium Chloride 0.9% 10 Ml Flush Syringe IV 10 ml BID CONNOR Administration Sodium Chloride 10 ml 06/17/20 14:17 Sodium Chloride 0.9% 10 Ml Flush Syringe IV PRN PRN LINE FLUSH Sodium Polystyrene Sulfonate 15 gm 07/03/20 11:19 07/05/20 10:36 Sodium Polystyrene 15 Gm/60 Ml Oral Liqd PO 15 gm Q6HR PRN Administration Hyperkalemia Zinc Sulfate 220 mg 06/17/20 22:00 07/10/20 10:28 Zinc Sulfate 220 Mg Cap PO 220 mg BID CONNOR Administration
--- NOTE | 2020-07-10 14:06 | Progress Note ---
Assessment and Plan Acute hypoxemic respiratory failure due to COVID-19 Severe COVID infection Severe Sepsis with shock Bilateral pneumonia Acute kidney injury (GIRISH) with acute tubular necrosis (ATN) Elevated liver enzymes Obesity (Discussed care with his family extensively over the phone and answered their questions; explained the gravity of his illness and the likely need for a tracheostomy if he shows improvement) - reduced set TV to 500 mls - reduced FiO2 to 70% - 1 unit PRBC transfusion - started on Zosyn by attending - nephrology input sincerely appreciated - continue care as below otherwise; - therapeutic anticoagulation remains on hold - continue HD/UF per nephrology prescription for toxin and volume clearance - keep peep at 14 - complete dexamethasone dosing re: worsening acidosis & continued positive status while trending serum inflammatory markers - continue daily SAT's & SBT's as tolerated - continue tube feeds and advance to goal rate as tolerated - continue HD/UF per nephrology team for toxin and volume clearance - continue bowel regimen - rate control per cardiology team for afib RVR - Continue to wean supplemental oxygen for O2 sats >92% - Monitor blood pressure closely while optimizing sedation,wean vasopressor support for MAP > 65 mmHg - Critical care prone positioning - VAP bundle addressed, aspiration precautions HOB >40 - continue lung protective strategies, permissive hypercapnic acceptable. - continue bronchodilators with pulmonary hygiene per RT - wean per pulmonary driven protocols otherwise - accuchecks with glycemic control per SSI (While critically ill target blood glucose of 140-180 mg/dL; avoid hypoglycemia) - sedation prn for target RASS -1 to -2 - continue enteral nutritional support at goal rate as tolerated - s/p antibiotics per ID recommendations - Monitor liver function test ,avoid hepatotoxic agents - azotemia per nephrology rec's - Avoid nephrotoxins, renally dose all medications, conservative fluid management - continue to avoid benzodiazepines, reduce the possibility of delirium, - prn analgesia per CPOT score - Maintenance of sleep-wake cycle, avoid delirium - Stress ulcer prophylaxis, Famotidine - PT/OT/ROM exercises - Mobility protocols for pressure ulcer prevention - CXR, ABG in am - CBC, CMP in am - Supportive transfusions to keep HgB >7g/dL - Monitor hemodynamics closely - continue other care per attending / other consultants COVID SPECIFIC INTERVENTIONS - continue steroids: Dexamethasone - continue with Remdesivir - monitor inflammatory markers - ferritin, D-dimer, CRP, LDH per facility protocol - continue anticoagulation per System Protocol based on d-dimer - continue contact and airborne isolation CONDITION: CRITICAL PROGNOSIS: GUARDED CODE STATUS: FULL CODE The high probability of a clinically significant, sudden or life-threatening deterioration of the [respiratory, cardiovascular, hematologic & neurologic] system(s) required my full and direct attention, intervention and personal management. The aggregate critical care time was [40] minutes without overlap. Time includes spent on; [x] Data Review and interpretation [x] Patient assessment and monitoring of vital signs [x] Documentation [x] Medication orders and management He was evaluated in the context of the global COVID-19 pandemic, which necessitated consideration that the patient might be at risk for infection with the virus that causes COVID-19. Institutional protocols and algorithms that pertain to the evaluation of patients at risk for COVID-19 are in a state of rapid change based on information released by regulatory bodies including the CDC and federal and state organizations. These policies and algorithms were followed during the patient's care in the ICU Please note that these policies, procedures and recommendations changed on a rapid basis. Subjective Date of service: 07/10/20 Principal diagnosis: ARF; Septic Shock; COVID-19 PNA; Atrial fibrillation; Obesity Interval history: Patient is seen today for: Ac hypoxemic respiratory failure; COVID-19; Severe Sepsis with shock; Zackery. pneumonia; GIRISH; Elevated liver enzymes; Obesity Seen and examined at bedside; 24hour events reviewed; nursing and respiratory care staff consulted; no adverse overnight events reported to me; resting in bed; remains on MVS; FiO2 at 75% with room to wean; no dialysis today; no high grade fevers; no emesis or overt aspiration Objective Vital Signs - 12hr 07/10/20 07/10/20 07/10/20 02:15 02:30 02:45 Temperature Pulse Rate 93 H 101 H 97 H Pulse Rate [ From Monitor] Respiratory 25 H 25 H 25 H Rate Blood Pressure 80/53 86/50 97/52 O2 Sat by Pulse 99 99 99 Oximetry 07/10/20 07/10/20 07/10/20 03:00 03:16 03:21 Temperature 98.3 F Pulse Rate 109 H 104 H Pulse Rate [ From Monitor] Respiratory 25 H 25 H Rate Blood Pressure 98/58 102/54 O2 Sat by Pulse 98 98 Oximetry 07/10/20 07/10/20 07/10/20 03:30 03:46 03:47 Temperature Pulse Rate 99 H 98 H 103 H Pulse Rate [ From Monitor] Respiratory 25 H 21 Rate Blood Pressure 99/51 103/56 99/51 O2 Sat by Pulse 97 97 97 Oximetry 07/10/20 07/10/20 07/10/20 04:00 04:15 04:30 Temperature Pulse Rate 105 H 103 H 99 H Pulse Rate [ 99 H From Monitor] Respiratory 26 H 25 H 25 H Rate Blood Pressure 100/52 102/58 108/56 O2 Sat by Pulse 97 97 97 Oximetry 07/10/20 07/10/20 07/10/20 04:45 05:00 05:15 Temperature Pulse Rate 109 H 99 H 104 H Pulse Rate [ From Monitor] Respiratory 25 H 25 H 25 H Rate Blood Pressure 102/61 109/54 113/52 O2 Sat by Pulse 96 97 97 Oximetry 07/10/20 07/10/20 07/10/20 05:30 05:46 06:00 Temperature Pulse Rate 106 H 131 H 130 H Pulse Rate [ From Monitor] Respiratory 27 H 21 15 Rate Blood Pressure 113/52 158/73 155/83 O2 Sat by Pulse 94 93 92 Oximetry 07/10/20 07/10/20 07/10/20 06:16 06:30 06:45 Temperature Pulse Rate 122 H 129 H 125 H Pulse Rate [ From Monitor] Respiratory 18 17 16 Rate Blood Pressure 156/73 147/79 139/72 O2 Sat by Pulse 92 91 92 Oximetry 07/10/20 07/10/20 07/10/20 07:00 07:15 07:30 Temperature Pulse Rate 118 H 109 H 130 H Pulse Rate [ From Monitor] Respiratory 22 13 16 Rate Blood Pressure 139/72 121/63 114/62 O2 Sat by Pulse 92 93 92 Oximetry 07/10/20 07/10/20 07/10/20 07:45 08:00 08:11 Temperature 98.1 F Pulse Rate 126 H 122 H 131 H Pulse Rate [ 131 H From Monitor] Respiratory 17 22 14 Rate Blood Pressure 108/58 116/63 O2 Sat by Pulse 94 94 94 Oximetry 07/10/20 07/10/20 07/10/20 08:15 08:20 08:30 Temperature Pulse Rate 122 H 124 H 137 H Pulse Rate [ From Monitor] Respiratory 17 25 H Rate Blood Pressure 131/70 131/70 119/65 O2 Sat by Pulse 95 95 95 Oximetry 07/10/20 07/10/20 07/10/20 08:46 09:00 09:16 Temperature Pulse Rate 123 H 121 H 114 H Pulse Rate [ From Monitor] Respiratory 21 19 25 H Rate Blood Pressure 122/68 129/69 122/62 O2 Sat by Pulse 95 96 96 Oximetry 07/10/20 07/10/20 07/10/20 09:30 09:45 10:00 Temperature Pulse Rate 118 H 124 H 118 H Pulse Rate [ From Monitor] Respiratory 17 13 18 Rate Blood Pressure 113/63 115/67 114/60 O2 Sat by Pulse 96 96 95 Oximetry 07/10/20 07/10/20 07/10/20 10:16 10:30 10:45 Temperature Pulse Rate 128 H 116 H 126 H Pulse Rate [ From Monitor] Respiratory 15 18 17 Rate Blood Pressure 114/63 111/57 117/67 O2 Sat by Pulse 94 94 Oximetry 07/10/20 07/10/20 07/10/20 11:00 11:15 11:20 Temperature Pulse Rate 127 H 127 H 117 H Pulse Rate [ From Monitor] Respiratory 23 17 Rate Blood Pressure 104/56 113/62 113/62 O2 Sat by Pulse Oximetry 07/10/20 07/10/20 07/10/20 11:30 11:45 12:00 Temperature 99.1 F Pulse Rate 123 H 132 H 124 H Pulse Rate [ 113 H From Monitor] Respiratory 17 22 20 Rate Blood Pressure 109/64 108/60 109/65 O2 Sat by Pulse 94 Oximetry 07/10/20 07/10/20 07/10/20 12:15 12:30 12:45 Temperature Pulse Rate 116 H 117 H 111 H Pulse Rate [ From Monitor] Respiratory 24 18 18 Rate Blood Pressure 116/64 123/65 116/59 O2 Sat by Pulse Oximetry 07/10/20 07/10/20 13:00 13:15 Temperature Pulse Rate 126 H 120 H Pulse Rate [ From Monitor] Respiratory 18 15 Rate Blood Pressure 105/63 110/62 O2 Sat by Pulse Oximetry Constitutional: appears uncomfortable, other (morbidly obese, atraumatic, normocephalic, mild resp distress, orally intubated) Eyes: non-icteric ENT: oropharynx moist, other (ETT 24 cm TROY + blood crusted lips) Neck: supple, no lymphadenopathy, other (Large , short neck) Effort: mildly labored Ascultation: Bilateral: diminished breath sounds, rhonchi Percussion: Bilateral: not dull Cardiovascular: irregular rhythm, other (S1,S2) Gastrointestinal: normoactive bowel sounds, non-distended (protuberant), other (OG Tube) Integumentary: rash, other (Femoral CVC, Newell catheter) Extremities: pink and warm, pulses normal, no ischemia or petechiae, edema (trace to 1+) Neurologic: non-focal exam (grossly), pupils equal and round, other (unable to assess, sedated) Psychiatric: other (unable to assess, sedated) CBC and BMP: 07/10/20 03:55 07/10/20 03:55 ABG, PT/INR, D-dimer: ABG ABG pH 7.412 (7.320-7.450) 07/10/20 03:49 POC ABG pCO2 43.9 mmHg (32.0-48.0) 07/10/20 03:49 ABG pCO2 56.4 mm Hg 07/05/20 04:30 POC ABG pO2 94.4 mmHg (83-108) 07/10/20 03:49 ABG pO2 151.9 mm Hg (80.0-90.0) H 07/05/20 04:30 POC ABG HCO3 27.3 07/10/20 03:49 ABG O2 Saturation 98.7 % (95.0-99.0) 07/05/20 04:30 PT/INR, D-dimer PT 17.4 Sec. (12.2-14.9) H 06/26/20 05:47 INR 1.44 (0.87-1.13) H 06/26/20 05:47 D-Dimer 6608.00 ng/mlDDU (0-234) H 07/03/20 14:50 Abnormal lab findings: Abnormal Labs 06/17/20 06/17/20 06/17/20 12:33 12:33 12:33 WBC 19.5 H RBC 5.18 H Hgb 15.5 H Hct MCHC RDW Lymph % (Auto) 3.8 L Lymph # (Auto) 0.7 L [place] # (Auto) Seg Neutrophils % Seg Neuts % (Manual) 99.0 H Lymphocytes % (Manual) 1.0 L Nucleated RBC % Seg Neutrophils # 18.2 H Seg Neutrophils # Man 19.3 H Lymphocytes # (Manual) 0.2 L Monocytes # (Manual) Eosinophils # (Manual) PT 16.5 H INR 1.33 H APTT D-Dimer 1025.04 H Heparin Anti-Xa Level ABG pH POC ABG pCO2 POC ABG pO2 ABG pO2 ABG HCO3 ABG Hemoglobin ABG Oxyhemoglobin ABG Sodium ABG Potassium ABG Chloride ABG Glucose Carboxyhemoglobin Sodium 130 L Potassium 3.4 L Chloride 95.0 L Carbon Dioxide BUN 21 H Creatinine Glucose 137 H POC Glucose Lactic Acid Calcium 7.9 L Phosphorus Magnesium Ferritin Direct Bilirubin AST 84 H ALT 67 H Lactate Dehydrogenase 437 H Total Creatine Kinase 310 H C-Reactive Protein 27.90 H Total Protein Albumin 2.9 L Triglycerides Arterial Blood Glucose Arterial Blood Ionized Calcium Urine Creatinine Urine Chloride Vancomycin Trough Coronavirus (PCR) Crossmatch 06/17/20 06/17/20 06/17/20 12:33 12:33 14:48 WBC RBC Hgb Hct MCHC RDW Lymph % (Auto) Lymph # (Auto) [place] # (Auto) Seg Neutrophils % Seg Neuts % (Manual) Lymphocytes % (Manual) Nucleated RBC % Seg Neutrophils # Seg Neutrophils # Man Lymphocytes # (Manual) Monocytes # (Manual) Eosinophils # (Manual) PT INR APTT D-Dimer Heparin Anti-Xa Level ABG pH POC ABG pCO2 POC ABG pO2 ABG pO2 ABG HCO3 ABG Hemoglobin ABG Oxyhemoglobin ABG Sodium ABG Potassium ABG Chloride ABG Glucose Carboxyhemoglobin Sodium Potassium Chloride Carbon Dioxide BUN Creatinine Glucose POC Glucose Lactic Acid 2.50 H* 2.20 H* Calcium Phosphorus Magnesium Ferritin 2297.0 H Direct Bilirubin AST ALT Lactate Dehydrogenase Total Creatine Kinase C-Reactive Protein Total Protein Albumin Triglycerides Arterial Blood Glucose Arterial Blood Ionized Calcium Urine Creatinine Urine Chloride Vancomycin Trough Coronavirus (PCR) Crossmatch 06/17/20 06/17/20 06/17/20 14:48 14:48 14:48 WBC RBC Hgb Hct MCHC RDW Lymph % (Auto) Lymph # (Auto) [place] # (Auto) Seg Neutrophils % Seg Neuts % (Manual) Lymphocytes % (Manual) Nucleated RBC % Seg Neutrophils # Seg Neutrophils # Man Lymphocytes # (Manual) Monocytes # (Manual) Eosinophils # (Manual) PT INR APTT D-Dimer 939.89 H Heparin Anti-Xa Level ABG pH POC ABG pCO2 POC ABG pO2 ABG pO2 ABG HCO3 ABG Hemoglobin ABG Oxyhemoglobin ABG Sodium ABG Potassium ABG Chloride ABG Glucose Carboxyhemoglobin Sodium Potassium Chloride Carbon Dioxide BUN Creatinine Glucose 141 H POC Glucose Lactic Acid Calcium Phosphorus Magnesium Ferritin > 2000.0 H Direct Bilirubin AST ALT Lactate Dehydrogenase 503 H Total Creatine Kinase C-Reactive Protein 24.70 H Total Protein Albumin Triglycerides Arterial Blood Glucose Arterial Blood Ionized Calcium Urine Creatinine Urine Chloride Vancomycin Trough Coronavirus (PCR) Crossmatch 06/17/20 06/17/20 06/17/20 16:54 19:39 23:43 WBC RBC Hgb Hct MCHC RDW Lymph % (Auto) Lymph # (Auto) [place] # (Auto) Seg Neutrophils % Seg Neuts % (Manual) Lymphocytes % (Manual) Nucleated RBC % Seg Neutrophils # Seg Neutrophils # Man Lymphocytes # (Manual) Monocytes # (Manual) Eosinophils # (Manual) PT INR APTT D-Dimer Heparin Anti-Xa Level ABG pH 7.571 H POC ABG pCO2 24.3 L POC ABG pO2 41.6 L ABG pO2 ABG HCO3 ABG Hemoglobin ABG Oxyhemoglobin 84.0 L ABG Sodium 131.0 L ABG Potassium ABG Chloride ABG Glucose 163 H Carboxyhemoglobin Sodium Potassium Chloride Carbon Dioxide BUN Creatinine Glucose POC Glucose 185 H Lactic Acid 2.10 H* Calcium Phosphorus Magnesium Ferritin Direct Bilirubin AST ALT Lactate Dehydrogenase Total Creatine Kinase C-Reactive Protein Total Protein Albumin Triglycerides Arterial Blood Glucose 163 H Arterial Blood Ionized Calcium 4.4 L Urine Creatinine Urine Chloride Vancomycin Trough Coronavirus (PCR) Crossmatch 06/18/20 06/18/20 06/18/20 00:17 00:23 03:55 WBC RBC Hgb Hct MCHC RDW Lymph % (Auto) Lymph # (Auto) [place] # (Auto) Seg Neutrophils % Seg Neuts % (Manual) Lymphocytes % (Manual) Nucleated RBC % Seg Neutrophils # Seg Neutrophils # Man Lymphocytes # (Manual) Monocytes # (Manual) Eosinophils # (Manual) PT INR APTT D-Dimer Heparin Anti-Xa Level ABG pH POC ABG pCO2 POC ABG pO2 56.5 L 48.3 L ABG pO2 ABG HCO3 ABG Hemoglobin ABG Oxyhemoglobin 86.3 L 81.7 L ABG Sodium 132.9 L 131.0 L ABG Potassium ABG Chloride ABG Glucose 189 H 161 H Carboxyhemoglobin 0.4 L Sodium Potassium Chloride Carbon Dioxide BUN Creatinine Glucose POC Glucose Lactic Acid 3.80 H* Calcium Phosphorus Magnesium Ferritin Direct Bilirubin AST ALT Lactate Dehydrogenase Total Creatine Kinase C-Reactive Protein Total Protein Albumin Triglycerides Arterial Blood Glucose 189 H 161 H Arterial Blood Ionized Calcium 4.3 L 4.2 L Urine Creatinine Urine Chloride Vancomycin Trough Coronavirus (PCR) Crossmatch 06/18/20 06/18/20 06/18/20 05:39 05:39 05:39 WBC 26.2 H RBC Hgb Hct MCHC RDW Lymph % (Auto) Lymph # (Auto) [place] # (Auto) Seg Neutrophils % Seg Neuts % (Manual) 90.0 H Lymphocytes % (Manual) 5.0 L Nucleated RBC % Seg Neutrophils # Seg Neutrophils # Man 23.6 H Lymphocytes # (Manual) Monocytes # (Manual) 1.3 H Eosinophils # (Manual) PT INR APTT D-Dimer Heparin Anti-Xa Level ABG pH POC ABG pCO2 POC ABG pO2 ABG pO2 ABG HCO3 ABG Hemoglobin ABG Oxyhemoglobin ABG Sodium ABG Potassium ABG Chloride ABG Glucose Carboxyhemoglobin Sodium 135 L Potassium Chloride 97.5 L Carbon Dioxide 21 L BUN 39 H Creatinine 1.7 H D Glucose 168 H POC Glucose Lactic Acid 3.40 H* Calcium 7.2 L Phosphorus Magnesium Ferritin Direct Bilirubin AST ALT Lactate Dehydrogenase Total Creatine Kinase C-Reactive Protein Total Protein Albumin Triglycerides Arterial Blood Glucose Arterial Blood Ionized Calcium Urine Creatinine Urine Chloride Vancomycin Trough Coronavirus (PCR) Crossmatch 06/18/20 06/18/20 06/18/20 07:24 09:00 10:10 WBC RBC Hgb Hct MCHC RDW Lymph % (Auto) Lymph # (Auto) [place] # (Auto) Seg Neutrophils % Seg Neuts % (Manual) Lymphocytes % (Manual) Nucleated RBC % Seg Neutrophils # Seg Neutrophils # Man Lymphocytes # (Manual) Monocytes # (Manual) Eosinophils # (Manual) PT INR APTT D-Dimer Heparin Anti-Xa Level ABG pH POC ABG pCO2 POC ABG pO2 ABG pO2 ABG HCO3 ABG Hemoglobin ABG Oxyhemoglobin ABG Sodium ABG Potassium ABG Chloride ABG Glucose Carboxyhemoglobin Sodium Potassium Chloride Carbon Dioxide BUN Creatinine Glucose POC Glucose Lactic Acid 2.90 H* 3.20 H* Calcium Phosphorus Magnesium Ferritin Direct Bilirubin AST ALT Lactate Dehydrogenase Total Creatine Kinase C-Reactive Protein Total Protein Albumin Triglycerides Arterial Blood Glucose Arterial Blood Ionized Calcium Urine Creatinine Urine Chloride Vancomycin Trough Coronavirus (PCR) Positive A Crossmatch 06/18/20 06/18/20 06/18/20 11:58 14:43 15:00 WBC RBC Hgb Hct MCHC RDW Lymph % (Auto) Lymph # (Auto) [place] # (Auto) Seg Neutrophils % Seg Neuts % (Manual) Lymphocytes % (Manual) Nucleated RBC % Seg Neutrophils # Seg Neutrophils # Man Lymphocytes # (Manual) Monocytes # (Manual) Eosinophils # (Manual) PT INR APTT D-Dimer Heparin Anti-Xa Level ABG pH 7.303 L POC ABG pCO2 POC ABG pO2 82.3 L ABG pO2 ABG HCO3 ABG Hemoglobin ABG Oxyhemoglobin ABG Sodium 135.3 L ABG Potassium ABG Chloride ABG Glucose 215 H Carboxyhemoglobin 0.3 L Sodium Potassium Chloride Carbon Dioxide BUN Creatinine Glucose POC Glucose 209 H Lactic Acid Calcium Phosphorus Magnesium Ferritin Direct Bilirubin AST ALT Lactate Dehydrogenase Total Creatine Kinase C-Reactive Protein Total Protein Albumin Triglycerides Arterial Blood Glucose 215 H Arterial Blood Ionized Calcium 4.2 L Urine Creatinine 192.4 H Urine Chloride 31.1 L Vancomycin Trough Coronavirus (PCR) Crossmatch 06/18/20 06/18/20 06/18/20 17:16 19:44 20:33 WBC RBC Hgb Hct MCHC RDW Lymph % (Auto) Lymph # (Auto) [place] # (Auto) Seg Neutrophils % Seg Neuts % (Manual) Lymphocytes % (Manual) Nucleated RBC % Seg Neutrophils # Seg Neutrophils # Man Lymphocytes # (Manual) Monocytes # (Manual) Eosinophils # (Manual) PT INR APTT D-Dimer Heparin Anti-Xa Level ABG pH POC ABG pCO2 POC ABG pO2 ABG pO2 ABG HCO3 ABG Hemoglobin ABG Oxyhemoglobin ABG Sodium ABG Potassium ABG Chloride ABG Glucose Carboxyhemoglobin Sodium Potassium Chloride Carbon Dioxide BUN Creatinine Glucose POC Glucose 182 H Lactic Acid 3.00 H* Calcium Phosphorus Magnesium 2.70 H Ferritin Direct Bilirubin AST ALT Lactate Dehydrogenase Total Creatine Kinase C-Reactive Protein Total Protein Albumin Triglycerides Arterial Blood Glucose Arterial Blood Ionized Calcium Urine Creatinine Urine Chloride Vancomycin Trough Coronavirus (PCR) Crossmatch 06/18/20 06/19/20 06/19/20 23:43 04:00 04:00 WBC 31.6 H RBC Hgb Hct MCHC RDW Lymph % (Auto) Lymph # (Auto) [place] # (Auto) Seg Neutrophils % Seg Neuts % (Manual) 98.0 H Lymphocytes % (Manual) 0.5 L Nucleated RBC % Seg Neutrophils # Seg Neutrophils # Man 31.0 H Lymphocytes # (Manual) 0.2 L Monocytes # (Manual) Eosinophils # (Manual) PT INR APTT D-Dimer Heparin Anti-Xa Level ABG pH POC ABG pCO2 POC ABG pO2 ABG pO2 ABG HCO3 ABG Hemoglobin ABG Oxyhemoglobin ABG Sodium ABG Potassium ABG Chloride ABG Glucose Carboxyhemoglobin Sodium Potassium Chloride Carbon Dioxide BUN 56 H Creatinine 1.6 H Glucose 176 H POC Glucose 149 H Lactic Acid Calcium 7.0 L Phosphorus Magnesium Ferritin Direct Bilirubin AST 244 H ALT 159 H Lactate Dehydrogenase Total Creatine Kinase C-Reactive Protein Total Protein 4.9 L D Albumin 2.5 L Triglycerides Arterial Blood Glucose Arterial Blood Ionized Calcium Urine Creatinine Urine Chloride Vancomycin Trough Coronavirus (PCR) Crossmatch 06/19/20 06/19/20 06/19/20 04:00 05:44 11:42 WBC RBC Hgb Hct MCHC RDW Lymph % (Auto) Lymph # (Auto) [place] # (Auto) Seg Neutrophils % Seg Neuts % (Manual) Lymphocytes % (Manual) Nucleated RBC % Seg Neutrophils # Seg Neutrophils # Man Lymphocytes # (Manual) Monocytes # (Manual) Eosinophils # (Manual) PT INR APTT D-Dimer Heparin Anti-Xa Level ABG pH 7.265 L POC ABG pCO2 51.8 H POC ABG pO2 65.1 L ABG pO2 ABG HCO3 ABG Hemoglobin ABG Oxyhemoglobin ABG Sodium ABG Potassium ABG Chloride ABG Glucose 184 H Carboxyhemoglobin Sodium Potassium Chloride Carbon Dioxide BUN Creatinine Glucose POC Glucose 156 H 191 H Lactic Acid Calcium Phosphorus Magnesium Ferritin Direct Bilirubin AST ALT Lactate Dehydrogenase Total Creatine Kinase C-Reactive Protein Total Protein Albumin Triglycerides Arterial Blood Glucose 184 H Arterial Blood Ionized Calcium 4.3 L Urine Creatinine Urine Chloride Vancomycin Trough Coronavirus (PCR) Crossmatch 06/19/20 06/19/20 06/19/20 12:30 17:16 18:36 WBC RBC Hgb Hct MCHC RDW Lymph % (Auto) Lymph # (Auto) [place] # (Auto) Seg Neutrophils % Seg Neuts % (Manual) Lymphocytes % (Manual) Nucleated RBC % Seg Neutrophils # Seg Neutrophils # Man Lymphocytes # (Manual) Monocytes # (Manual) Eosinophils # (Manual) PT 16.4 H INR 1.32 H APTT D-Dimer Heparin Anti-Xa Level ABG pH 7.088 L POC ABG pCO2 78.1 H POC ABG pO2 208.3 H ABG pO2 ABG HCO3 ABG Hemoglobin ABG Oxyhemoglobin 98.3 H ABG Sodium ABG Potassium 5.0 H ABG Chloride ABG Glucose 182 H Carboxyhemoglobin 0.4 L Sodium Potassium Chloride Carbon Dioxide BUN Creatinine Glucose POC Glucose 154 H Lactic Acid Calcium Phosphorus Magnesium Ferritin Direct Bilirubin AST ALT Lactate Dehydrogenase Total Creatine Kinase C-Reactive Protein Total Protein Albumin Triglycerides Arterial Blood Glucose 182 H Arterial Blood Ionized Calcium 4.3 L Urine Creatinine Urine Chloride Vancomycin Trough Coronavirus (PCR) Crossmatch 06/19/20 06/20/20 06/20/20 23:32 03:00 05:19 WBC RBC Hgb Hct MCHC RDW Lymph % (Auto) Lymph # (Auto) [place] # (Auto) Seg Neutrophils % Seg Neuts % (Manual) Lymphocytes % (Manual) Nucleated RBC % Seg Neutrophils # Seg Neutrophils # Man Lymphocytes # (Manual) Monocytes # (Manual) Eosinophils # (Manual) PT INR APTT D-Dimer Heparin Anti-Xa Level 0.77 H ABG pH POC ABG pCO2 POC ABG pO2 ABG pO2 ABG HCO3 ABG Hemoglobin ABG Oxyhemoglobin ABG Sodium ABG Potassium ABG Chloride ABG Glucose Carboxyhemoglobin Sodium Potassium Chloride Carbon Dioxide BUN Creatinine Glucose POC Glucose 201 H 190 H Lactic Acid Calcium Phosphorus Magnesium Ferritin Direct Bilirubin AST ALT Lactate Dehydrogenase Total Creatine Kinase C-Reactive Protein Total Protein Albumin Triglycerides Arterial Blood Glucose Arterial Blood Ionized Calcium Urine Creatinine Urine Chloride Vancomycin Trough Coronavirus (PCR) Crossmatch 06/20/20 06/20/20 06/20/20 08:25 08:25 11:36 WBC RBC Hgb Hct MCHC RDW Lymph % (Auto) Lymph # (Auto) [place] # (Auto) Seg Neutrophils % Seg Neuts % (Manual) Lymphocytes % (Manual) Nucleated RBC % Seg Neutrophils # Seg Neutrophils # Man Lymphocytes # (Manual) Monocytes # (Manual) Eosinophils # (Manual) PT INR APTT D-Dimer Heparin Anti-Xa Level ABG pH POC ABG pCO2 POC ABG pO2 ABG pO2 ABG HCO3 ABG Hemoglobin ABG Oxyhemoglobin ABG Sodium ABG Potassium ABG Chloride ABG Glucose Carboxyhemoglobin Sodium 135 L Potassium 5.4 H Chloride 109.2 H Carbon Dioxide 19 L BUN 68 H Creatinine 2.5 H D Glucose 201 H POC Glucose 184 H Lactic Acid Calcium 5.5 L* D Phosphorus Magnesium Ferritin Direct Bilirubin AST 123 H ALT 86 H Lactate Dehydrogenase Total Creatine Kinase C-Reactive Protein Total Protein 4.6 L Albumin 1.5 L Triglycerides Arterial Blood Glucose Arterial Blood Ionized Calcium Urine Creatinine Urine Chloride Vancomycin Trough 22.7 H Coronavirus (PCR) Crossmatch 06/20/20 06/20/20 06/20/20 11:40 17:28 20:00 WBC RBC Hgb Hct MCHC RDW Lymph % (Auto) Lymph # (Auto) [place] # (Auto) Seg Neutrophils % Seg Neuts % (Manual) Lymphocytes % (Manual) Nucleated RBC % Seg Neutrophils # Seg Neutrophils # Man Lymphocytes # (Manual) Monocytes # (Manual) Eosinophils # (Manual) PT INR APTT D-Dimer Heparin Anti-Xa Level 0.89 H ABG pH 7.099 L POC ABG pCO2 61.1 H POC ABG pO2 ABG pO2 ABG HCO3 ABG Hemoglobin ABG Oxyhemoglobin ABG Sodium ABG Potassium 5.0 H ABG Chloride 111.0 H ABG Glucose 200 H Carboxyhemoglobin 0.4 L Sodium Potassium Chloride Carbon Dioxide BUN Creatinine Glucose POC Glucose 165 H Lactic Acid Calcium Phosphorus Magnesium Ferritin Direct Bilirubin AST ALT Lactate Dehydrogenase Total Creatine Kinase C-Reactive Protein Total Protein Albumin Triglycerides Arterial Blood Glucose 200 H Arterial Blood Ionized Calcium 4.2 L Urine Creatinine Urine Chloride Vancomycin Trough Coronavirus (PCR) Crossmatch 06/20/20 06/21/20 06/21/20 23:29 05:00 05:20 WBC RBC Hgb Hct MCHC RDW Lymph % (Auto) Lymph # (Auto) [place] # (Auto) Seg Neutrophils % Seg Neuts % (Manual) Lymphocytes % (Manual) Nucleated RBC % Seg Neutrophils # Seg Neutrophils # Man Lymphocytes # (Manual) Monocytes # (Manual) Eosinophils # (Manual) PT INR APTT D-Dimer Heparin Anti-Xa Level ABG pH POC ABG pCO2 POC ABG pO2 ABG pO2 ABG HCO3 ABG Hemoglobin ABG Oxyhemoglobin ABG Sodium ABG Potassium ABG Chloride ABG Glucose Carboxyhemoglobin Sodium Potassium Chloride 112.0 H Carbon Dioxide 20 L BUN 92 H Creatinine 3.9 H D Glucose 214 H POC Glucose 145 H 191 H Lactic Acid Calcium 6.5 L D Phosphorus Magnesium Ferritin Direct Bilirubin AST 98 H ALT 84 H Lactate Dehydrogenase Total Creatine Kinase C-Reactive Protein Total Protein 4.6 L Albumin 2.1 L Triglycerides 180 H Arterial Blood Glucose Arterial Blood Ionized Calcium Urine Creatinine Urine Chloride Vancomycin Trough Coronavirus (PCR) Crossmatch 06/21/20 06/21/20 06/21/20 08:56 11:12 12:43 WBC RBC Hgb Hct MCHC RDW Lymph % (Auto) Lymph # (Auto) [place] # (Auto) Seg Neutrophils % Seg Neuts % (Manual) Lymphocytes % (Manual) Nucleated RBC % Seg Neutrophils # Seg Neutrophils # Man Lymphocytes # (Manual) Monocytes # (Manual) Eosinophils # (Manual) PT INR APTT D-Dimer Heparin Anti-Xa Level 0.28 L ABG pH 7.184 L POC ABG pCO2 48.3 H POC ABG pO2 172.1 H ABG pO2 ABG HCO3 ABG Hemoglobin ABG Oxyhemoglobin 98.7 H ABG Sodium ABG Potassium 4.9 H ABG Chloride 112.0 H ABG Glucose 196 H Carboxyhemoglobin 0.2 L Sodium Potassium Chloride Carbon Dioxide BUN Creatinine Glucose POC Glucose 177 H Lactic Acid Calcium Phosphorus Magnesium Ferritin Direct Bilirubin AST ALT Lactate Dehydrogenase Total Creatine Kinase C-Reactive Protein Total Protein Albumin Triglycerides Arterial Blood Glucose 196 H Arterial Blood Ionized Calcium 4.1 L Urine Creatinine Urine Chloride Vancomycin Trough Coronavirus (PCR) Crossmatch 06/21/20 06/21/20 06/22/20 16:31 Unknown 00:12 WBC RBC Hgb Hct MCHC RDW Lymph % (Auto) Lymph # (Auto) [place] # (Auto) Seg Neutrophils % Seg Neuts % (Manual) Lymphocytes % (Manual) Nucleated RBC % Seg Neutrophils # Seg Neutrophils # Man Lymphocytes # (Manual) Monocytes # (Manual) Eosinophils # (Manual) PT INR APTT D-Dimer Heparin Anti-Xa Level 0.78 H ABG pH POC ABG pCO2 POC ABG pO2 ABG pO2 ABG HCO3 ABG Hemoglobin ABG Oxyhemoglobin ABG Sodium ABG Potassium ABG Chloride ABG Glucose Carboxyhemoglobin Sodium Potassium Chloride Carbon Dioxide BUN Creatinine Glucose POC Glucose 150 H 173 H Lactic Acid Calcium Phosphorus Magnesium Ferritin Direct Bilirubin AST ALT Lactate Dehydrogenase Total Creatine Kinase C-Reactive Protein Total Protein Albumin Triglycerides Arterial Blood Glucose Arterial Blood Ionized Calcium Urine Creatinine Urine Chloride Vancomycin Trough Coronavirus (PCR) Crossmatch 06/22/20 06/22/20 06/22/20 04:00 05:04 05:30 WBC 33.9 H RBC Hgb 11.7 L Hct 35.2 L MCHC RDW 15.8 H Lymph % (Auto) Lymph # (Auto) [place] # (Auto) Seg Neutrophils % Seg Neuts % (Manual) 93.0 H Lymphocytes % (Manual) 5.0 L Nucleated RBC % Seg Neutrophils # Seg Neutrophils # Man 31.5 H Lymphocytes # (Manual) Monocytes # (Manual) Eosinophils # (Manual) PT INR APTT D-Dimer Heparin Anti-Xa Level ABG pH 7.169 L POC ABG pCO2 POC ABG pO2 ABG pO2 ABG HCO3 ABG Hemoglobin ABG Oxyhemoglobin ABG Sodium ABG Potassium 5.1 H ABG Chloride 112.0 H ABG Glucose 186 H Carboxyhemoglobin 0.3 L Sodium Potassium Chloride Carbon Dioxide BUN Creatinine Glucose POC Glucose 161 H Lactic Acid Calcium Phosphorus Magnesium Ferritin Direct Bilirubin AST ALT Lactate Dehydrogenase Total Creatine Kinase C-Reactive Protein Total Protein Albumin Triglycerides Arterial Blood Glucose 186 H Arterial Blood Ionized Calcium 4.1 L Urine Creatinine Urine Chloride Vancomycin Trough Coronavirus (PCR) Crossmatch 06/22/20 06/22/20 06/22/20 05:30 11:39 13:27 WBC RBC Hgb Hct MCHC RDW Lymph % (Auto) Lymph # (Auto) [place] # (Auto) Seg Neutrophils % Seg Neuts % (Manual) Lymphocytes % (Manual) Nucleated RBC % Seg Neutrophils # Seg Neutrophils # Man Lymphocytes # (Manual) Monocytes # (Manual) Eosinophils # (Manual) PT INR APTT D-Dimer Heparin Anti-Xa Level ABG pH POC ABG pCO2 POC ABG pO2 ABG pO2 ABG HCO3 ABG Hemoglobin ABG Oxyhemoglobin ABG Sodium ABG Potassium ABG Chloride ABG Glucose Carboxyhemoglobin Sodium Potassium 5.7 H Chloride 111.3 H Carbon Dioxide 18 L BUN 112 H Creatinine 5.0 H Glucose 173 H POC Glucose 172 H 176 H Lactic Acid Calcium 6.7 L Phosphorus Magnesium Ferritin Direct Bilirubin AST ALT Lactate Dehydrogenase Total Creatine Kinase C-Reactive Protein Total Protein Albumin Triglycerides Arterial Blood Glucose Arterial Blood Ionized Calcium Urine Creatinine Urine Chloride Vancomycin Trough Coronavirus (PCR) Crossmatch 06/22/20 06/22/20 06/22/20 14:37 17:00 17:40 WBC RBC Hgb Hct MCHC RDW Lymph % (Auto) Lymph # (Auto) [place] # (Auto) Seg Neutrophils % Seg Neuts % (Manual) Lymphocytes % (Manual) Nucleated RBC % Seg Neutrophils # Seg Neutrophils # Man Lymphocytes # (Manual) Monocytes # (Manual) Eosinophils # (Manual) PT INR APTT D-Dimer Heparin Anti-Xa Level 1.32 H ABG pH POC ABG pCO2 POC ABG pO2 ABG pO2 ABG HCO3 ABG Hemoglobin ABG Oxyhemoglobin ABG Sodium ABG Potassium ABG Chloride ABG Glucose Carboxyhemoglobin Sodium Potassium Chloride Carbon Dioxide BUN Creatinine Glucose POC Glucose 171 H Lactic Acid Calcium Phosphorus Magnesium Ferritin Direct Bilirubin AST ALT Lactate Dehydrogenase Total Creatine Kinase C-Reactive Protein 5.30 H Total Protein Albumin Triglycerides Arterial Blood Glucose Arterial Blood Ionized Calcium Urine Creatinine Urine Chloride Vancomycin Trough Coronavirus (PCR) Crossmatch 06/22/20 06/23/20 06/23/20 23:36 02:13 02:41 WBC RBC Hgb Hct MCHC RDW Lymph % (Auto) Lymph # (Auto) [place] # (Auto) Seg Neutrophils % Seg Neuts % (Manual) Lymphocytes % (Manual) Nucleated RBC % Seg Neutrophils # Seg Neutrophils # Man Lymphocytes # (Manual) Monocytes # (Manual) Eosinophils # (Manual) PT INR APTT D-Dimer Heparin Anti-Xa Level 0.21 L ABG pH 7.318 L POC ABG pCO2 POC ABG pO2 157.5 H ABG pO2 ABG HCO3 ABG Hemoglobin ABG Oxyhemoglobin ABG Sodium 135.6 L ABG Potassium 4.6 H ABG Chloride 110.0 H ABG Glucose 169 H Carboxyhemoglobin Sodium Potassium Chloride Carbon Dioxide BUN Creatinine Glucose POC Glucose 155 H Lactic Acid Calcium Phosphorus Magnesium Ferritin Direct Bilirubin AST ALT Lactate Dehydrogenase Total Creatine Kinase C-Reactive Protein Total Protein Albumin Triglycerides Arterial Blood Glucose 169 H Arterial Blood Ionized Calcium Urine Creatinine Urine Chloride Vancomycin Trough Coronavirus (PCR) Crossmatch 06/23/20 06/23/20 06/23/20 04:00 04:00 05:24 WBC 27.4 H RBC Hgb 11.3 L Hct 33.8 L MCHC RDW Lymph % (Auto) Lymph # (Auto) [place] # (Auto) Seg Neutrophils % Seg Neuts % (Manual) 93.0 H Lymphocytes % (Manual) 1.0 L Nucleated RBC % 1.0 H Seg Neutrophils # Seg Neutrophils # Man 25.5 H Lymphocytes # (Manual) 0.3 L Monocytes # (Manual) 1.1 H Eosinophils # (Manual) PT INR APTT D-Dimer Heparin Anti-Xa Level ABG pH POC ABG pCO2 POC ABG pO2 ABG pO2 ABG HCO3 ABG Hemoglobin ABG Oxyhemoglobin ABG Sodium ABG Potassium ABG Chloride ABG Glucose Carboxyhemoglobin Sodium Potassium Chloride 107.6 H Carbon Dioxide 20 L BUN 100 H Creatinine 4.7 H Glucose 168 H POC Glucose 151 H Lactic Acid Calcium Phosphorus Magnesium Ferritin Direct Bilirubin AST ALT Lactate Dehydrogenase Total Creatine Kinase C-Reactive Protein Total Protein Albumin Triglycerides Arterial Blood Glucose Arterial Blood Ionized Calcium Urine Creatinine Urine Chloride Vancomycin Trough Coronavirus (PCR) Crossmatch 06/23/20 06/23/20 06/23/20 11:30 17:18 23:50 WBC RBC Hgb Hct MCHC RDW Lymph % (Auto) Lymph # (Auto) [place] # (Auto) Seg Neutrophils % Seg Neuts % (Manual) Lymphocytes % (Manual) Nucleated RBC % Seg Neutrophils # Seg Neutrophils # Man Lymphocytes # (Manual) Monocytes # (Manual) Eosinophils # (Manual) PT INR APTT D-Dimer Heparin Anti-Xa Level ABG pH POC ABG pCO2 POC ABG pO2 ABG pO2 ABG HCO3 ABG Hemoglobin ABG Oxyhemoglobin ABG Sodium ABG Potassium ABG Chloride ABG Glucose Carboxyhemoglobin Sodium Potassium Chloride Carbon Dioxide BUN Creatinine Glucose POC Glucose 157 H 156 H 162 H Lactic Acid Calcium Phosphorus Magnesium Ferritin Direct Bilirubin AST ALT Lactate Dehydrogenase Total Creatine Kinase C-Reactive Protein Total Protein Albumin Triglycerides Arterial Blood Glucose Arterial Blood Ionized Calcium Urine Creatinine Urine Chloride Vancomycin Trough Coronavirus (PCR) Crossmatch 06/24/20 06/24/20 06/24/20 04:41 05:57 06:30 WBC 34.3 H RBC Hgb 10.9 L Hct 32.6 L MCHC RDW Lymph % (Auto) 2.0 L Lymph # (Auto) 0.7 L [place] # (Auto) 1.2 H Seg Neutrophils % Seg Neuts % (Manual) 96.0 H Lymphocytes % (Manual) 3.0 L Nucleated RBC % Seg Neutrophils # 32.3 H Seg Neutrophils # Man 32.9 H Lymphocytes # (Manual) 1.0 L Monocytes # (Manual) Eosinophils # (Manual) PT INR APTT D-Dimer Heparin Anti-Xa Level ABG pH POC ABG pCO2 POC ABG pO2 71.1 L ABG pO2 ABG HCO3 ABG Hemoglobin ABG Oxyhemoglobin 92.4 L ABG Sodium 115.6 L ABG Potassium ABG Chloride ABG Glucose 159 H Carboxyhemoglobin Sodium Potassium Chloride Carbon Dioxide BUN Creatinine Glucose POC Glucose 143 H Lactic Acid Calcium Phosphorus Magnesium Ferritin Direct Bilirubin AST ALT Lactate Dehydrogenase Total Creatine Kinase C-Reactive Protein Total Protein Albumin Triglycerides Arterial Blood Glucose 159 H Arterial Blood Ionized Calcium 4.2 L Urine Creatinine Urine Chloride Vancomycin Trough Coronavirus (PCR) Crossmatch 06/24/20 06/24/20 06/24/20 07:03 09:37 11:56 WBC RBC Hgb Hct MCHC RDW Lymph % (Auto) Lymph # (Auto) [place] # (Auto) Seg Neutrophils % Seg Neuts % (Manual) Lymphocytes % (Manual) Nucleated RBC % Seg Neutrophils # Seg Neutrophils # Man Lymphocytes # (Manual) Monocytes # (Manual) Eosinophils # (Manual) PT INR APTT D-Dimer Heparin Anti-Xa Level 0.26 L ABG pH POC ABG pCO2 POC ABG pO2 ABG pO2 ABG HCO3 ABG Hemoglobin ABG Oxyhemoglobin ABG Sodium ABG Potassium ABG Chloride ABG Glucose Carboxyhemoglobin Sodium Potassium 5.1 H Chloride Carbon Dioxide BUN 103 H Creatinine 5.0 H Glucose 163 H POC Glucose 149 H Lactic Acid Calcium 7.6 L Phosphorus Magnesium Ferritin Direct Bilirubin AST ALT Lactate Dehydrogenase Total Creatine Kinase C-Reactive Protein Total Protein Albumin Triglycerides Arterial Blood Glucose Arterial Blood Ionized Calcium Urine Creatinine Urine Chloride Vancomycin Trough Coronavirus (PCR) Crossmatch 06/24/20 06/25/20 06/25/20 18:09 01:05 03:00 WBC RBC Hgb 10.6 L Hct 32.1 L MCHC RDW Lymph % (Auto) Lymph # (Auto) [place] # (Auto) Seg Neutrophils % Seg Neuts % (Manual) Lymphocytes % (Manual) Nucleated RBC % Seg Neutrophils # Seg Neutrophils # Man Lymphocytes # (Manual) Monocytes # (Manual) Eosinophils # (Manual) PT INR APTT D-Dimer Heparin Anti-Xa Level ABG pH POC ABG pCO2 POC ABG pO2 ABG pO2 ABG HCO3 ABG Hemoglobin ABG Oxyhemoglobin ABG Sodium ABG Potassium ABG Chloride ABG Glucose Carboxyhemoglobin Sodium Potassium Chloride Carbon Dioxide BUN Creatinine Glucose POC Glucose 141 H 137 H Lactic Acid Calcium Phosphorus Magnesium Ferritin Direct Bilirubin AST ALT Lactate Dehydrogenase Total Creatine Kinase C-Reactive Protein Total Protein Albumin Triglycerides Arterial Blood Glucose Arterial Blood Ionized Calcium Urine Creatinine Urine Chloride Vancomycin Trough Coronavirus (PCR) Crossmatch 06/25/20 06/25/20 06/25/20 03:48 05:17 12:08 WBC RBC Hgb Hct MCHC RDW Lymph % (Auto) Lymph # (Auto) [place] # (Auto) Seg Neutrophils % Seg Neuts % (Manual) Lymphocytes % (Manual) Nucleated RBC % Seg Neutrophils # Seg Neutrophils # Man Lymphocytes # (Manual) Monocytes # (Manual) Eosinophils # (Manual) PT INR APTT D-Dimer Heparin Anti-Xa Level ABG pH POC ABG pCO2 29.4 L POC ABG pO2 67.1 L ABG pO2 ABG HCO3 ABG Hemoglobin 11.5 L ABG Oxyhemoglobin ABG Sodium 124.1 L ABG Potassium 4.6 H ABG Chloride ABG Glucose 159 H Carboxyhemoglobin Sodium Potassium Chloride Carbon Dioxide BUN Creatinine Glucose POC Glucose 149 H 150 H Lactic Acid Calcium Phosphorus Magnesium Ferritin Direct Bilirubin AST ALT Lactate Dehydrogenase Total Creatine Kinase C-Reactive Protein Total Protein Albumin Triglycerides Arterial Blood Glucose 159 H Arterial Blood Ionized Calcium 4.2 L Urine Creatinine Urine Chloride Vancomycin Trough Coronavirus (PCR) Crossmatch 06/25/20 06/25/20 06/25/20 16:27 16:35 17:27 WBC RBC Hgb Hct MCHC RDW Lymph % (Auto) Lymph # (Auto) [place] # (Auto) Seg Neutrophils % Seg Neuts % (Manual) Lymphocytes % (Manual) Nucleated RBC % Seg Neutrophils # Seg Neutrophils # Man Lymphocytes # (Manual) Monocytes # (Manual) Eosinophils # (Manual) PT INR APTT D-Dimer Heparin Anti-Xa Level < 0.10 L ABG pH POC ABG pCO2 POC ABG pO2 ABG pO2 ABG HCO3 ABG Hemoglobin ABG Oxyhemoglobin ABG Sodium ABG Potassium ABG Chloride ABG Glucose Carboxyhemoglobin Sodium Potassium Chloride Carbon Dioxide BUN Creatinine Glucose POC Glucose 143 H 156 H Lactic Acid Calcium Phosphorus Magnesium Ferritin Direct Bilirubin AST ALT Lactate Dehydrogenase Total Creatine Kinase C-Reactive Protein Total Protein Albumin Triglycerides Arterial Blood Glucose Arterial Blood Ionized Calcium Urine Creatinine Urine Chloride Vancomycin Trough Coronavirus (PCR) Crossmatch 06/25/20 06/25/20 06/25/20 20:00 20:55 23:10 WBC 32.7 H RBC 3.06 L Hgb 9.0 L 9.5 L Hct 26.7 L 28.6 L MCHC RDW Lymph % (Auto) Lymph # (Auto) [place] # (Auto) Seg Neutrophils % Seg Neuts % (Manual) Lymphocytes % (Manual) 2.0 L Nucleated RBC % Seg Neutrophils # Seg Neutrophils # Man 30.7 H Lymphocytes # (Manual) 0.7 L Monocytes # (Manual) 1.3 H Eosinophils # (Manual) PT 17.7 H INR 1.47 H APTT 65.8 H* D-Dimer Heparin Anti-Xa Level ABG pH POC ABG pCO2 POC ABG pO2 ABG pO2 ABG HCO3 ABG Hemoglobin ABG Oxyhemoglobin ABG Sodium ABG Potassium ABG Chloride ABG Glucose Carboxyhemoglobin Sodium Potassium Chloride Carbon Dioxide BUN Creatinine Glucose POC Glucose Lactic Acid Calcium Phosphorus Magnesium Ferritin Direct Bilirubin AST ALT Lactate Dehydrogenase Total Creatine Kinase C-Reactive Protein Total Protein Albumin Triglycerides Arterial Blood Glucose Arterial Blood Ionized Calcium Urine Creatinine Urine Chloride Vancomycin Trough Coronavirus (PCR) Crossmatch 06/25/20 06/26/20 06/26/20 23:14 01:30 03:25 WBC RBC Hgb Hct MCHC RDW Lymph % (Auto) Lymph # (Auto) [place] # (Auto) Seg Neutrophils % Seg Neuts % (Manual) Lymphocytes % (Manual) Nucleated RBC % Seg Neutrophils # Seg Neutrophils # Man Lymphocytes # (Manual) Monocytes # (Manual) Eosinophils # (Manual) PT INR APTT D-Dimer Heparin Anti-Xa Level < 0.10 L ABG pH POC ABG pCO2 POC ABG pO2 ABG pO2 ABG HCO3 ABG Hemoglobin 11.8 L ABG Oxyhemoglobin ABG Sodium 127.1 L ABG Potassium 5.4 H ABG Chloride ABG Glucose 155 H Carboxyhemoglobin 0.3 L Sodium Potassium Chloride Carbon Dioxide BUN Creatinine Glucose POC Glucose 148 H Lactic Acid Calcium Phosphorus Magnesium Ferritin Direct Bilirubin AST ALT Lactate Dehydrogenase Total Creatine Kinase C-Reactive Protein Total Protein Albumin Triglycerides Arterial Blood Glucose 155 H Arterial Blood Ionized Calcium 4.2 L Urine Creatinine Urine Chloride Vancomycin Trough Coronavirus (PCR) Crossmatch 06/26/20 06/26/20 06/26/20 03:59 05:14 05:47 WBC 36.5 H RBC 3.26 L Hgb 9.7 L Hct 28.2 L MCHC RDW Lymph % (Auto) Lymph # (Auto) [place] # (Auto) Seg Neutrophils % Seg Neuts % (Manual) 92.0 H Lymphocytes % (Manual) 4.0 L Nucleated RBC % Seg Neutrophils # Seg Neutrophils # Man 33.6 H Lymphocytes # (Manual) Monocytes # (Manual) Eosinophils # (Manual) PT INR APTT D-Dimer Heparin Anti-Xa Level ABG pH POC ABG pCO2 POC ABG pO2 ABG pO2 ABG HCO3 ABG Hemoglobin ABG Oxyhemoglobin ABG Sodium ABG Potassium ABG Chloride ABG Glucose Carboxyhemoglobin Sodium Potassium 5.9 H Chloride Carbon Dioxide 20 L BUN 144 H Creatinine 6.4 H Glucose 149 H POC Glucose 128 H Lactic Acid Calcium 7.6 L Phosphorus Magnesium Ferritin Direct Bilirubin AST ALT Lactate Dehydrogenase Total Creatine Kinase C-Reactive Protein Total Protein Albumin Triglycerides Arterial Blood Glucose Arterial Blood Ionized Calcium Urine Creatinine Urine Chloride Vancomycin Trough Coronavirus (PCR) Crossmatch 06/26/20 06/26/20 06/26/20 05:47 12:47 17:42 WBC RBC Hgb Hct MCHC RDW Lymph % (Auto) Lymph # (Auto) [place] # (Auto) Seg Neutrophils % Seg Neuts % (Manual) Lymphocytes % (Manual) Nucleated RBC % Seg Neutrophils # Seg Neutrophils # Man Lymphocytes # (Manual) Monocytes # (Manual) Eosinophils # (Manual) PT 17.4 H INR 1.44 H APTT D-Dimer Heparin Anti-Xa Level ABG pH POC ABG pCO2 POC ABG pO2 ABG pO2 ABG HCO3 ABG Hemoglobin ABG Oxyhemoglobin ABG Sodium ABG Potassium ABG Chloride ABG Glucose Carboxyhemoglobin Sodium Potassium Chloride Carbon Dioxide BUN Creatinine Glucose POC Glucose 124 H 127 H Lactic Acid Calcium Phosphorus Magnesium Ferritin Direct Bilirubin AST ALT Lactate Dehydrogenase Total Creatine Kinase C-Reactive Protein Total Protein Albumin Triglycerides Arterial Blood Glucose Arterial Blood Ionized Calcium Urine Creatinine Urine Chloride Vancomycin Trough Coronavirus (PCR) Crossmatch 06/26/20 06/27/20 06/27/20 23:30 03:32 04:00 WBC RBC Hgb 8.7 L Hct 26.4 L MCHC RDW Lymph % (Auto) Lymph # (Auto) [place] # (Auto) Seg Neutrophils % Seg Neuts % (Manual) Lymphocytes % (Manual) Nucleated RBC % Seg Neutrophils # Seg Neutrophils # Man Lymphocytes # (Manual) Monocytes # (Manual) Eosinophils # (Manual) PT INR APTT D-Dimer Heparin Anti-Xa Level ABG pH 7.298 L POC ABG pCO2 POC ABG pO2 ABG pO2 ABG HCO3 ABG Hemoglobin 9.6 L ABG Oxyhemoglobin ABG Sodium 124.4 L ABG Potassium 6.6 H ABG Chloride ABG Glucose 136 H Carboxyhemoglobin Sodium Potassium Chloride Carbon Dioxide BUN Creatinine Glucose POC Glucose 123 H Lactic Acid Calcium Phosphorus Magnesium Ferritin Direct Bilirubin AST ALT Lactate Dehydrogenase Total Creatine Kinase C-Reactive Protein Total Protein Albumin Triglycerides Arterial Blood Glucose 136 H Arterial Blood Ionized Calcium 4.1 L Urine Creatinine Urine Chloride Vancomycin Trough Coronavirus (PCR) Crossmatch 06/27/20 06/27/20 06/27/20 05:26 10:14 11:58 WBC RBC Hgb Hct MCHC RDW Lymph % (Auto) Lymph # (Auto) [place] # (Auto) Seg Neutrophils % Seg Neuts % (Manual) Lymphocytes % (Manual) Nucleated RBC % Seg Neutrophils # Seg Neutrophils # Man Lymphocytes # (Manual) Monocytes # (Manual) Eosinophils # (Manual) PT INR APTT D-Dimer Heparin Anti-Xa Level ABG pH POC ABG pCO2 POC ABG pO2 ABG pO2 ABG HCO3 ABG Hemoglobin ABG Oxyhemoglobin ABG Sodium ABG Potassium ABG Chloride ABG Glucose Carboxyhemoglobin Sodium 136 L Potassium 7.0 H* Chloride 97.8 L Carbon Dioxide BUN 172 H Creatinine 7.4 H Glucose 129 H POC Glucose 124 H 115 H Lactic Acid Calcium 7.6 L Phosphorus Magnesium Ferritin Direct Bilirubin AST ALT Lactate Dehydrogenase Total Creatine Kinase C-Reactive Protein Total Protein Albumin Triglycerides Arterial Blood Glucose Arterial Blood Ionized Calcium Urine Creatinine Urine Chloride Vancomycin Trough Coronavirus (PCR) Crossmatch 06/27/20 06/27/20 06/27/20 17:32 18:30 23:24 WBC RBC Hgb Hct MCHC RDW Lymph % (Auto) Lymph # (Auto) [place] # (Auto) Seg Neutrophils % Seg Neuts % (Manual) Lymphocytes % (Manual) Nucleated RBC % Seg Neutrophils # Seg Neutrophils # Man Lymphocytes # (Manual) Monocytes # (Manual) Eosinophils # (Manual) PT INR APTT D-Dimer Heparin Anti-Xa Level ABG pH POC ABG pCO2 POC ABG pO2 ABG pO2 ABG HCO3 ABG Hemoglobin ABG Oxyhemoglobin ABG Sodium ABG Potassium ABG Chloride ABG Glucose Carboxyhemoglobin Sodium Potassium 7.3 H* Chloride Carbon Dioxide BUN Creatinine Glucose POC Glucose 122 H 116 H Lactic Acid Calcium Phosphorus Magnesium Ferritin Direct Bilirubin AST ALT Lactate Dehydrogenase Total Creatine Kinase C-Reactive Protein Total Protein Albumin Triglycerides Arterial Blood Glucose Arterial Blood Ionized Calcium Urine Creatinine Urine Chloride Vancomycin Trough Coronavirus (PCR) Crossmatch 06/28/20 06/28/20 06/28/20 00:00 02:16 05:37 WBC RBC Hgb Hct MCHC RDW Lymph % (Auto) Lymph # (Auto) [place] # (Auto) Seg Neutrophils % Seg Neuts % (Manual) Lymphocytes % (Manual) Nucleated RBC % Seg Neutrophils # Seg Neutrophils # Man Lymphocytes # (Manual) Monocytes # (Manual) Eosinophils # (Manual) PT INR APTT D-Dimer Heparin Anti-Xa Level ABG pH POC ABG pCO2 POC ABG pO2 79.0 L ABG pO2 ABG HCO3 ABG Hemoglobin 11.7 L ABG Oxyhemoglobin ABG Sodium 128.1 L ABG Potassium 6.6 H ABG Chloride ABG Glucose 124 H Carboxyhemoglobin Sodium Potassium 7.3 H* Chloride Carbon Dioxide BUN Creatinine Glucose POC Glucose 115 H Lactic Acid Calcium Phosphorus Magnesium Ferritin Direct Bilirubin AST ALT Lactate Dehydrogenase Total Creatine Kinase C-Reactive Protein Total Protein Albumin Triglycerides Arterial Blood Glucose 124 H Arterial Blood Ionized Calcium 4.2 L Urine Creatinine Urine Chloride Vancomycin Trough Coronavirus (PCR) Crossmatch 06/28/20 06/28/20 06/28/20 10:03 10:03 11:51 WBC 33.6 H RBC 3.03 L Hgb 8.9 L Hct 27.0 L MCHC RDW Lymph % (Auto) Lymph # (Auto) [place] # (Auto) Seg Neutrophils % Seg Neuts % (Manual) Lymphocytes % (Manual) Nucleated RBC % Seg Neutrophils # Seg Neutrophils # Man Lymphocytes # (Manual) Monocytes # (Manual) Eosinophils # (Manual) PT INR APTT D-Dimer Heparin Anti-Xa Level ABG pH POC ABG pCO2 POC ABG pO2 ABG pO2 ABG HCO3 ABG Hemoglobin ABG Oxyhemoglobin ABG Sodium ABG Potassium ABG Chloride ABG Glucose Carboxyhemoglobin Sodium 136 L Potassium 6.5 H* Chloride Carbon Dioxide 20 L BUN 129 H Creatinine 5.8 H Glucose 113 H POC Glucose 107 H Lactic Acid Calcium 7.6 L Phosphorus Magnesium Ferritin Direct Bilirubin AST ALT Lactate Dehydrogenase Total Creatine Kinase C-Reactive Protein Total Protein Albumin Triglycerides Arterial Blood Glucose Arterial Blood Ionized Calcium Urine Creatinine Urine Chloride Vancomycin Trough Coronavirus (PCR) Crossmatch 06/28/20 06/28/20 06/29/20 17:45 Unknown 03:15 WBC RBC Hgb Hct MCHC RDW Lymph % (Auto) Lymph # (Auto) [place] # (Auto) Seg Neutrophils % Seg Neuts % (Manual) Lymphocytes % (Manual) Nucleated RBC % Seg Neutrophils # Seg Neutrophils # Man Lymphocytes # (Manual) Monocytes # (Manual) Eosinophils # (Manual) PT INR APTT D-Dimer Heparin Anti-Xa Level ABG pH POC ABG pCO2 POC ABG pO2 ABG pO2 ABG HCO3 ABG Hemoglobin 7.8 L ABG Oxyhemoglobin ABG Sodium 127.4 L ABG Potassium 5.5 H ABG Chloride 97.0 L ABG Glucose 96 H Carboxyhemoglobin Sodium Potassium 5.4 H Chloride Carbon Dioxide BUN Creatinine Glucose POC Glucose 117 H Lactic Acid Calcium Phosphorus Magnesium Ferritin Direct Bilirubin AST ALT Lactate Dehydrogenase Total Creatine Kinase C-Reactive Protein Total Protein Albumin Triglycerides Arterial Blood Glucose 96 H Arterial Blood Ionized Calcium 4.0 L Urine Creatinine Urine Chloride Vancomycin Trough Coronavirus (PCR) Crossmatch 06/29/20 06/29/20 06/29/20 03:45 Unknown Unknown WBC RBC Hgb Hct MCHC RDW Lymph % (Auto) Lymph # (Auto) [place] # (Auto) Seg Neutrophils % Seg Neuts % (Manual) Lymphocytes % (Manual) Nucleated RBC % Seg Neutrophils # Seg Neutrophils # Man Lymphocytes # (Manual) Monocytes # (Manual) Eosinophils # (Manual) PT INR APTT D-Dimer Heparin Anti-Xa Level ABG pH POC ABG pCO2 POC ABG pO2 ABG pO2 ABG HCO3 ABG Hemoglobin ABG Oxyhemoglobin ABG Sodium ABG Potassium ABG Chloride ABG Glucose Carboxyhemoglobin Sodium 135 L Potassium 6.0 H 6.1 H* Chloride 94.8 L Carbon Dioxide BUN 109 H 114 H Creatinine 5.5 H Glucose POC Glucose Lactic Acid Calcium 7.4 L Phosphorus Magnesium Ferritin Direct Bilirubin AST 47 H ALT Lactate Dehydrogenase Total Creatine Kinase C-Reactive Protein Total Protein 4.9 L Albumin 2.2 L Triglycerides Arterial Blood Glucose Arterial Blood Ionized Calcium Urine Creatinine Urine Chloride Vancomycin Trough Coronavirus (PCR) Crossmatch 06/29/20 06/29/20 06/30/20 Unknown Unknown 03:32 WBC 20.7 H RBC 2.57 L Hgb 7.6 L Hct 23.0 L MCHC RDW Lymph % (Auto) Lymph # (Auto) [place] # (Auto) Seg Neutrophils % Seg Neuts % (Manual) Lymphocytes % (Manual) Nucleated RBC % Seg Neutrophils # Seg Neutrophils # Man Lymphocytes # (Manual) Monocytes # (Manual) Eosinophils # (Manual) PT INR APTT D-Dimer Heparin Anti-Xa Level ABG pH POC ABG pCO2 POC ABG pO2 ABG pO2 ABG HCO3 ABG Hemoglobin 11.4 L ABG Oxyhemoglobin ABG Sodium 130.1 L ABG Potassium 5.0 H ABG Chloride ABG Glucose Carboxyhemoglobin Sodium Potassium Chloride Carbon Dioxide BUN Creatinine Glucose POC Glucose Lactic Acid Calcium Phosphorus Magnesium Ferritin Direct Bilirubin AST ALT Lactate Dehydrogenase Total Creatine Kinase 618 H C-Reactive Protein Total Protein Albumin Triglycerides Arterial Blood Glucose Arterial Blood Ionized Calcium 3.9 L Urine Creatinine Urine Chloride Vancomycin Trough Coronavirus (PCR) Crossmatch 06/30/20 06/30/20 06/30/20 03:50 03:50 11:39 WBC 13.1 H RBC Hgb Hct MCHC RDW Lymph % (Auto) Lymph # (Auto) [place] # (Auto) Seg Neutrophils % Seg Neuts % (Manual) 95.0 H Lymphocytes % (Manual) 3.0 L Nucleated RBC % Seg Neutrophils # Seg Neutrophils # Man 12.4 H Lymphocytes # (Manual) 0.4 L Monocytes # (Manual) Eosinophils # (Manual) PT INR APTT D-Dimer Heparin Anti-Xa Level ABG pH POC ABG pCO2 POC ABG pO2 ABG pO2 ABG HCO3 ABG Hemoglobin ABG Oxyhemoglobin ABG Sodium ABG Potassium ABG Chloride ABG Glucose Carboxyhemoglobin Sodium 135 L Potassium 5.4 H D Chloride 93.6 L Carbon Dioxide BUN 85 H Creatinine 4.6 H Glucose POC Glucose 111 H Lactic Acid Calcium 7.1 L Phosphorus 9.40 H Magnesium Ferritin Direct Bilirubin AST ALT Lactate Dehydrogenase Total Creatine Kinase C-Reactive Protein Total Protein Albumin Triglycerides Arterial Blood Glucose Arterial Blood Ionized Calcium Urine Creatinine Urine Chloride Vancomycin Trough Coronavirus (PCR) Crossmatch 06/30/20 06/30/20 07/01/20 13:12 Unknown 03:19 WBC RBC Hgb 7.8 L D Hct 23.2 L D MCHC RDW Lymph % (Auto) Lymph # (Auto) [place] # (Auto) Seg Neutrophils % Seg Neuts % (Manual) Lymphocytes % (Manual) Nucleated RBC % Seg Neutrophils # Seg Neutrophils # Man Lymphocytes # (Manual) Monocytes # (Manual) Eosinophils # (Manual) PT INR APTT D-Dimer Heparin Anti-Xa Level ABG pH 7.461 H POC ABG pCO2 POC ABG pO2 77.2 L ABG pO2 ABG HCO3 ABG Hemoglobin 6.9 L ABG Oxyhemoglobin ABG Sodium 128.5 L ABG Potassium ABG Chloride 97.0 L ABG Glucose Carboxyhemoglobin Sodium Potassium Chloride Carbon Dioxide BUN Creatinine Glucose POC Glucose Lactic Acid Calcium Phosphorus Magnesium Ferritin Direct Bilirubin AST ALT Lactate Dehydrogenase Total Creatine Kinase C-Reactive Protein Total Protein Albumin Triglycerides Arterial Blood Glucose Arterial Blood Ionized Calcium 3.7 L Urine Creatinine Urine Chloride Vancomycin Trough Coronavirus (PCR) Positive A Crossmatch 07/01/20 07/01/20 07/01/20 06:00 06:00 11:04 WBC 16.7 H RBC 2.16 L Hgb 6.4 L Hct 19.2 L* MCHC RDW Lymph % (Auto) Lymph # (Auto) [place] # (Auto) Seg Neutrophils % Seg Neuts % (Manual) Lymphocytes % (Manual) Nucleated RBC % Seg Neutrophils # Seg Neutrophils # Man Lymphocytes # (Manual) Monocytes # (Manual) Eosinophils # (Manual) PT INR APTT D-Dimer Heparin Anti-Xa Level ABG pH POC ABG pCO2 POC ABG pO2 ABG pO2 ABG HCO3 ABG Hemoglobin ABG Oxyhemoglobin ABG Sodium ABG Potassium ABG Chloride ABG Glucose Carboxyhemoglobin Sodium 136 L Potassium Chloride 95.8 L Carbon Dioxide BUN 72 H Creatinine 4.3 H Glucose POC Glucose Lactic Acid Calcium 6.7 L Phosphorus Magnesium Ferritin Direct Bilirubin AST ALT Lactate Dehydrogenase Total Creatine Kinase C-Reactive Protein Total Protein Albumin Triglycerides 250 H Arterial Blood Glucose Arterial Blood Ionized Calcium Urine Creatinine Urine Chloride Vancomycin Trough Coronavirus (PCR) Crossmatch See Detail 07/02/20 07/02/20 07/02/20 04:44 06:00 11:33 WBC 14.6 H RBC 2.47 L Hgb 7.4 L Hct 21.8 L MCHC RDW Lymph % (Auto) Lymph # (Auto) [place] # (Auto) Seg Neutrophils % Seg Neuts % (Manual) Lymphocytes % (Manual) Nucleated RBC % Seg Neutrophils # Seg Neutrophils # Man Lymphocytes # (Manual) Monocytes # (Manual) Eosinophils # (Manual) PT INR APTT D-Dimer Heparin Anti-Xa Level ABG pH 7.457 H POC ABG pCO2 POC ABG pO2 79.4 L ABG pO2 ABG HCO3 ABG Hemoglobin 8.5 L ABG Oxyhemoglobin ABG Sodium 128.4 L ABG Potassium ABG Chloride 97.0 L ABG Glucose 100 H Carboxyhemoglobin Sodium 133 L Potassium 5.2 H Chloride 93.3 L Carbon Dioxide BUN 66 H Creatinine 4.1 H Glucose 102 H POC Glucose Lactic Acid Calcium 7.2 L Phosphorus Magnesium Ferritin Direct Bilirubin AST ALT Lactate Dehydrogenase Total Creatine Kinase C-Reactive Protein Total Protein Albumin Triglycerides Arterial Blood Glucose 100 H Arterial Blood Ionized Calcium 3.9 L Urine Creatinine Urine Chloride Vancomycin Trough Coronavirus (PCR) Crossmatch 07/02/20 07/03/20 07/03/20 11:33 03:54 09:15 WBC 16.6 H RBC 2.44 L Hgb 7.3 L Hct 21.4 L MCHC RDW Lymph % (Auto) Lymph # (Auto) [place] # (Auto) Seg Neutrophils % Seg Neuts % (Manual) Lymphocytes % (Manual) Nucleated RBC % Seg Neutrophils # Seg Neutrophils # Man Lymphocytes # (Manual) Monocytes # (Manual) Eosinophils # (Manual) PT INR APTT D-Dimer Heparin Anti-Xa Level ABG pH POC ABG pCO2 POC ABG pO2 66.1 L ABG pO2 ABG HCO3 ABG Hemoglobin 8.0 L ABG Oxyhemoglobin ABG Sodium 124.6 L ABG Potassium 5.5 H ABG Chloride 96.0 L ABG Glucose 111 H Carboxyhemoglobin Sodium Potassium Chloride Carbon Dioxide BUN Creatinine Glucose POC Glucose Lactic Acid Calcium Phosphorus Magnesium Ferritin Direct Bilirubin 0.7 H AST 94 H ALT 60 H Lactate Dehydrogenase Total Creatine Kinase C-Reactive Protein Total Protein 4.4 L Albumin 1.9 L Triglycerides Arterial Blood Glucose 111 H Arterial Blood Ionized Calcium 3.8 L Urine Creatinine Urine Chloride Vancomycin Trough Coronavirus (PCR) Crossmatch 07/03/20 07/03/20 07/03/20 09:15 10:10 14:50 WBC RBC Hgb Hct MCHC RDW Lymph % (Auto) Lymph # (Auto) [place] # (Auto) Seg Neutrophils % Seg Neuts % (Manual) Lymphocytes % (Manual) Nucleated RBC % Seg Neutrophils # Seg Neutrophils # Man Lymphocytes # (Manual) Monocytes # (Manual) Eosinophils # (Manual) PT INR APTT D-Dimer 6608.00 H Heparin Anti-Xa Level ABG pH POC ABG pCO2 POC ABG pO2 ABG pO2 ABG HCO3 ABG Hemoglobin ABG Oxyhemoglobin ABG Sodium ABG Potassium ABG Chloride ABG Glucose Carboxyhemoglobin Sodium 133 L Potassium 6.2 H* Chloride 93.1 L Carbon Dioxide BUN 89 H Creatinine 5.1 H Glucose POC Glucose Lactic Acid Calcium 7.0 L Phosphorus Magnesium Ferritin Direct Bilirubin AST ALT Lactate Dehydrogenase Total Creatine Kinase C-Reactive Protein Total Protein Albumin Triglycerides Arterial Blood Glucose Arterial Blood Ionized Calcium Urine Creatinine Urine Chloride Vancomycin Trough Coronavirus (PCR) Positive A Crossmatch 07/03/20 07/03/20 07/03/20 14:50 14:50 14:50 WBC RBC Hgb Hct MCHC RDW Lymph % (Auto) Lymph # (Auto) [place] # (Auto) Seg Neutrophils % Seg Neuts % (Manual) Lymphocytes % (Manual) Nucleated RBC % Seg Neutrophils # Seg Neutrophils # Man Lymphocytes # (Manual) Monocytes # (Manual) Eosinophils # (Manual) PT INR APTT D-Dimer Heparin Anti-Xa Level ABG pH POC ABG pCO2 POC ABG pO2 ABG pO2 ABG HCO3 ABG Hemoglobin ABG Oxyhemoglobin ABG Sodium ABG Potassium ABG Chloride ABG Glucose Carboxyhemoglobin Sodium Potassium Chloride Carbon Dioxide BUN Creatinine Glucose POC Glucose Lactic Acid < 0.20 L Calcium Phosphorus Magnesium Ferritin 1171.0 H Direct Bilirubin AST ALT Lactate Dehydrogenase 525 H Total Creatine Kinase C-Reactive Protein 31.50 H Total Protein Albumin Triglycerides Arterial Blood Glucose Arterial Blood Ionized Calcium Urine Creatinine Urine Chloride Vancomycin Trough Coronavirus (PCR) Crossmatch 07/03/20 07/04/20 07/04/20 16:47 05:20 05:20 WBC 11.8 H RBC 2.32 L Hgb 6.7 L Hct 20.8 L MCHC RDW Lymph % (Auto) 2.6 L Lymph # (Auto) 0.3 L [place] # (Auto) Seg Neutrophils % Seg Neuts % (Manual) Lymphocytes % (Manual) Nucleated RBC % Seg Neutrophils # 11.0 H Seg Neutrophils # Man Lymphocytes # (Manual) Monocytes # (Manual) Eosinophils # (Manual) PT INR APTT D-Dimer Heparin Anti-Xa Level ABG pH POC ABG pCO2 POC ABG pO2 ABG pO2 ABG HCO3 ABG Hemoglobin ABG Oxyhemoglobin ABG Sodium ABG Potassium ABG Chloride ABG Glucose Carboxyhemoglobin Sodium Potassium 6.0 H Chloride 97.8 L Carbon Dioxide BUN 75 H Creatinine 4.5 H Glucose 121 H POC Glucose 107 H Lactic Acid Calcium 7.9 L Phosphorus Magnesium Ferritin Direct Bilirubin AST ALT Lactate Dehydrogenase Total Creatine Kinase C-Reactive Protein Total Protein Albumin Triglycerides Arterial Blood Glucose Arterial Blood Ionized Calcium Urine Creatinine Urine Chloride Vancomycin Trough Coronavirus (PCR) Crossmatch 07/04/20 07/04/20 07/04/20 05:20 05:50 09:25 WBC RBC Hgb Hct MCHC RDW Lymph % (Auto) Lymph # (Auto) [place] # (Auto) Seg Neutrophils % Seg Neuts % (Manual) Lymphocytes % (Manual) Nucleated RBC % Seg Neutrophils # Seg Neutrophils # Man Lymphocytes # (Manual) Monocytes # (Manual) Eosinophils # (Manual) PT INR APTT D-Dimer Heparin Anti-Xa Level ABG pH 7.324 L POC ABG pCO2 POC ABG pO2 ABG pO2 98.9 H ABG HCO3 26.8 H ABG Hemoglobin < 5.1 L ABG Oxyhemoglobin ABG Sodium ABG Potassium ABG Chloride ABG Glucose Carboxyhemoglobin Sodium Potassium Chloride Carbon Dioxide BUN Creatinine Glucose POC Glucose 114 H Lactic Acid Calcium Phosphorus Magnesium Ferritin Direct Bilirubin AST ALT Lactate Dehydrogenase Total Creatine Kinase C-Reactive Protein Total Protein Albumin Triglycerides Arterial Blood Glucose Arterial Blood Ionized Calcium Urine Creatinine Urine Chloride Vancomycin Trough Coronavirus (PCR) Crossmatch See Detail 07/04/20 07/04/20 07/04/20 12:33 17:41 23:04 WBC RBC Hgb Hct MCHC RDW Lymph % (Auto) Lymph # (Auto) [place] # (Auto) Seg Neutrophils % Seg Neuts % (Manual) Lymphocytes % (Manual) Nucleated RBC % Seg Neutrophils # Seg Neutrophils # Man Lymphocytes # (Manual) Monocytes # (Manual) Eosinophils # (Manual) PT INR APTT D-Dimer Heparin Anti-Xa Level ABG pH POC ABG pCO2 POC ABG pO2 ABG pO2 ABG HCO3 ABG Hemoglobin ABG Oxyhemoglobin ABG Sodium ABG Potassium ABG Chloride ABG Glucose Carboxyhemoglobin Sodium Potassium Chloride Carbon Dioxide BUN Creatinine Glucose POC Glucose 119 H 109 H 116 H Lactic Acid Calcium Phosphorus Magnesium Ferritin Direct Bilirubin AST ALT Lactate Dehydrogenase Total Creatine Kinase C-Reactive Protein Total Protein Albumin Triglycerides Arterial Blood Glucose Arterial Blood Ionized Calcium Urine Creatinine Urine Chloride Vancomycin Trough Coronavirus (PCR) Crossmatch 07/05/20 07/05/20 07/05/20 04:30 08:21 08:21 WBC RBC 2.77 L Hgb 7.9 L Hct 23.9 L MCHC RDW 16.7 H Lymph % (Auto) 7.5 L Lymph # (Auto) 0.7 L [place] # (Auto) Seg Neutrophils % 85.8 H Seg Neuts % (Manual) Lymphocytes % (Manual) Nucleated RBC % Seg Neutrophils # 7.8 H Seg Neutrophils # Man Lymphocytes # (Manual) Monocytes # (Manual) Eosinophils # (Manual) PT INR APTT D-Dimer Heparin Anti-Xa Level ABG pH 7.295 L POC ABG pCO2 POC ABG pO2 ABG pO2 151.9 H ABG HCO3 26.8 H ABG Hemoglobin 7.3 L ABG Oxyhemoglobin ABG Sodium ABG Potassium ABG Chloride ABG Glucose Carboxyhemoglobin Sodium Potassium Chloride Carbon Dioxide BUN Creatinine Glucose POC Glucose Lactic Acid Calcium Phosphorus Magnesium Ferritin Direct Bilirubin AST ALT Lactate Dehydrogenase Total Creatine Kinase C-Reactive Protein Total Protein Albumin Triglycerides 258 H Arterial Blood Glucose Arterial Blood Ionized Calcium Urine Creatinine Urine Chloride Vancomycin Trough Coronavirus (PCR) Crossmatch 07/05/20 07/05/20 07/06/20 08:21 12:12 04:29 WBC RBC Hgb Hct MCHC RDW Lymph % (Auto) Lymph # (Auto) [place] # (Auto) Seg Neutrophils % Seg Neuts % (Manual) Lymphocytes % (Manual) Nucleated RBC % Seg Neutrophils # Seg Neutrophils # Man Lymphocytes # (Manual) Monocytes # (Manual) Eosinophils # (Manual) PT INR APTT D-Dimer Heparin Anti-Xa Level ABG pH 7.291 L POC ABG pCO2 51.3 H POC ABG pO2 ABG pO2 ABG HCO3 ABG Hemoglobin 8.5 L ABG Oxyhemoglobin ABG Sodium 129.6 L ABG Potassium 4.8 H ABG Chloride 96.0 L ABG Glucose Carboxyhemoglobin Sodium 133 L Potassium 5.6 H Chloride 94.4 L Carbon Dioxide BUN 80 H Creatinine 4.2 H Glucose 114 H POC Glucose 106 H Lactic Acid Calcium 7.6 L Phosphorus Magnesium Ferritin Direct Bilirubin 0.5 H AST 75 H ALT 86 H Lactate Dehydrogenase Total Creatine Kinase C-Reactive Protein Total Protein 5.6 L D Albumin 1.9 L Triglycerides Arterial Blood Glucose Arterial Blood Ionized Calcium 4.2 L Urine Creatinine Urine Chloride Vancomycin Trough Coronavirus (PCR) Crossmatch 07/06/20 07/06/20 07/06/20 11:35 11:35 12:16 WBC RBC 2.54 L Hgb 7.5 L Hct 21.5 L MCHC 35 H RDW 15.7 H Lymph % (Auto) Lymph # (Auto) [place] # (Auto) Seg Neutrophils % Seg Neuts % (Manual) Lymphocytes % (Manual) Nucleated RBC % Seg Neutrophils # Seg Neutrophils # Man Lymphocytes # (Manual) Monocytes # (Manual) Eosinophils # (Manual) PT INR APTT D-Dimer Heparin Anti-Xa Level ABG pH POC ABG pCO2 POC ABG pO2 ABG pO2 ABG HCO3 ABG Hemoglobin ABG Oxyhemoglobin ABG Sodium ABG Potassium ABG Chloride ABG Glucose Carboxyhemoglobin Sodium 130 L Potassium Chloride 92.2 L Carbon Dioxide 19 L D BUN 107 H Creatinine 5.1 H Glucose 106 H POC Glucose 106 H Lactic Acid Calcium 7.5 L Phosphorus Magnesium Ferritin Direct Bilirubin AST ALT Lactate Dehydrogenase Total Creatine Kinase C-Reactive Protein Total Protein Albumin Triglycerides Arterial Blood Glucose Arterial Blood Ionized Calcium Urine Creatinine Urine Chloride Vancomycin Trough Coronavirus (PCR) Crossmatch 07/06/20 07/06/20 07/06/20 17:01 21:56 23:41 WBC RBC Hgb Hct MCHC RDW Lymph % (Auto) Lymph # (Auto) [place] # (Auto) Seg Neutrophils % Seg Neuts % (Manual) Lymphocytes % (Manual) Nucleated RBC % Seg Neutrophils # Seg Neutrophils # Man Lymphocytes # (Manual) Monocytes # (Manual) Eosinophils # (Manual) PT INR APTT D-Dimer Heparin Anti-Xa Level ABG pH POC ABG pCO2 POC ABG pO2 ABG pO2 ABG HCO3 ABG Hemoglobin ABG Oxyhemoglobin ABG Sodium ABG Potassium ABG Chloride ABG Glucose Carboxyhemoglobin Sodium 135 L Potassium 5.1 H Chloride Carbon Dioxide BUN 73 H Creatinine 4.0 H Glucose 112 H POC Glucose 109 H 111 H Lactic Acid Calcium 7.8 L Phosphorus Magnesium Ferritin Direct Bilirubin AST ALT Lactate Dehydrogenase Total Creatine Kinase C-Reactive Protein Total Protein Albumin Triglycerides Arterial Blood Glucose Arterial Blood Ionized Calcium Urine Creatinine Urine Chloride Vancomycin Trough Coronavirus (PCR) Crossmatch 07/07/20 07/07/20 07/07/20 04:18 05:04 05:29 WBC RBC 2.46 L Hgb 7.6 L Hct 21.5 L MCHC 35 H RDW 16.5 H Lymph % (Auto) Lymph # (Auto) [place] # (Auto) Seg Neutrophils % Seg Neuts % (Manual) 82.0 H Lymphocytes % (Manual) Nucleated RBC % 1.0 H Seg Neutrophils # Seg Neutrophils # Man Lymphocytes # (Manual) 1.1 L Monocytes # (Manual) Eosinophils # (Manual) PT INR APTT D-Dimer Heparin Anti-Xa Level ABG pH POC ABG pCO2 POC ABG pO2 79.6 L ABG pO2 ABG HCO3 ABG Hemoglobin 8.2 L ABG Oxyhemoglobin ABG Sodium 133.3 L ABG Potassium 4.7 H ABG Chloride ABG Glucose 135 H Carboxyhemoglobin Sodium Potassium Chloride Carbon Dioxide BUN Creatinine Glucose POC Glucose 112 H Lactic Acid Calcium Phosphorus Magnesium Ferritin Direct Bilirubin AST ALT Lactate Dehydrogenase Total Creatine Kinase C-Reactive Protein Total Protein Albumin Triglycerides Arterial Blood Glucose 135 H Arterial Blood Ionized Calcium 4.5 L Urine Creatinine Urine Chloride Vancomycin Trough Coronavirus (PCR) Crossmatch 07/07/20 07/07/20 07/07/20 10:17 12:18 17:43 WBC RBC Hgb Hct MCHC RDW Lymph % (Auto) Lymph # (Auto) [place] # (Auto) Seg Neutrophils % Seg Neuts % (Manual) Lymphocytes % (Manual) Nucleated RBC % Seg Neutrophils # Seg Neutrophils # Man Lymphocytes # (Manual) Monocytes # (Manual) Eosinophils # (Manual) PT INR APTT D-Dimer Heparin Anti-Xa Level ABG pH POC ABG pCO2 POC ABG pO2 ABG pO2 ABG HCO3 ABG Hemoglobin ABG Oxyhemoglobin ABG Sodium ABG Potassium ABG Chloride ABG Glucose Carboxyhemoglobin Sodium 136 L Potassium Chloride 96.8 L Carbon Dioxide BUN 82 H Creatinine 4.3 H Glucose 129 H POC Glucose 108 H 116 H Lactic Acid Calcium 7.8 L Phosphorus Magnesium Ferritin Direct Bilirubin AST ALT Lactate Dehydrogenase Total Creatine Kinase C-Reactive Protein Total Protein Albumin Triglycerides Arterial Blood Glucose Arterial Blood Ionized Calcium Urine Creatinine Urine Chloride Vancomycin Trough Coronavirus (PCR) Crossmatch 07/07/20 07/08/20 07/08/20 23:31 04:00 04:00 WBC RBC 2.52 L Hgb 7.3 L Hct 22.2 L MCHC RDW 16.6 H Lymph % (Auto) 11.5 L Lymph # (Auto) [place] # (Auto) Seg Neutrophils % 78.2 H Seg Neuts % (Manual) Lymphocytes % (Manual) Nucleated RBC % Seg Neutrophils # 8.0 H Seg Neutrophils # Man Lymphocytes # (Manual) Monocytes # (Manual) Eosinophils # (Manual) PT INR APTT D-Dimer Heparin Anti-Xa Level ABG pH POC ABG pCO2 POC ABG pO2 ABG pO2 ABG HCO3 ABG Hemoglobin ABG Oxyhemoglobin ABG Sodium ABG Potassium ABG Chloride ABG Glucose Carboxyhemoglobin Sodium 132 L Potassium 5.4 H Chloride 92.5 L Carbon Dioxide BUN 98 H Creatinine 4.9 H Glucose 105 H POC Glucose 117 H Lactic Acid Calcium 7.9 L Phosphorus Magnesium Ferritin Direct Bilirubin AST ALT Lactate Dehydrogenase Total Creatine Kinase C-Reactive Protein Total Protein Albumin Triglycerides Arterial Blood Glucose Arterial Blood Ionized Calcium Urine Creatinine Urine Chloride Vancomycin Trough Coronavirus (PCR) Crossmatch 07/08/20 07/08/20 07/08/20 04:09 11:34 17:05 WBC RBC Hgb Hct MCHC RDW Lymph % (Auto) Lymph # (Auto) [place] # (Auto) Seg Neutrophils % Seg Neuts % (Manual) Lymphocytes % (Manual) Nucleated RBC % Seg Neutrophils # Seg Neutrophils # Man Lymphocytes # (Manual) Monocytes # (Manual) Eosinophils # (Manual) PT INR APTT D-Dimer Heparin Anti-Xa Level ABG pH 7.220 L POC ABG pCO2 60.5 H POC ABG pO2 ABG pO2 ABG HCO3 ABG Hemoglobin 8.2 L ABG Oxyhemoglobin ABG Sodium 131.3 L ABG Potassium 5.2 H ABG Chloride ABG Glucose 103 H Carboxyhemoglobin Sodium Potassium Chloride Carbon Dioxide BUN Creatinine Glucose POC Glucose 140 H 125 H Lactic Acid Calcium Phosphorus Magnesium Ferritin Direct Bilirubin AST ALT Lactate Dehydrogenase Total Creatine Kinase C-Reactive Protein Total Protein Albumin Triglycerides Arterial Blood Glucose 103 H Arterial Blood Ionized Calcium 4.3 L Urine Creatinine Urine Chloride Vancomycin Trough Coronavirus (PCR) Crossmatch 07/08/20 07/08/20 07/09/20 20:21 23:43 05:10 WBC RBC Hgb Hct MCHC RDW Lymph % (Auto) Lymph # (Auto) [place] # (Auto) Seg Neutrophils % Seg Neuts % (Manual) Lymphocytes % (Manual) Nucleated RBC % Seg Neutrophils # Seg Neutrophils # Man Lymphocytes # (Manual) Monocytes # (Manual) Eosinophils # (Manual) PT INR APTT D-Dimer Heparin Anti-Xa Level ABG pH 7.20 L POC ABG pCO2 69.8 H POC ABG pO2 138.9 H 76.1 L ABG pO2 ABG HCO3 ABG Hemoglobin 11.9 L 8.4 L ABG Oxyhemoglobin ABG Sodium 133.1 L 131.2 L ABG Potassium 5.0 H 4.7 H ABG Chloride ABG Glucose 120 H 102 H Carboxyhemoglobin Sodium Potassium Chloride Carbon Dioxide BUN Creatinine Glucose POC Glucose 118 H Lactic Acid Calcium Phosphorus Magnesium Ferritin Direct Bilirubin AST ALT Lactate Dehydrogenase Total Creatine Kinase C-Reactive Protein Total Protein Albumin Triglycerides Arterial Blood Glucose 120 H 102 H Arterial Blood Ionized Calcium 4.4 L 4.3 L Urine Creatinine Urine Chloride Vancomycin Trough Coronavirus (PCR) Crossmatch 07/09/20 07/09/20 07/09/20 11:51 17:04 21:00 WBC RBC Hgb Hct MCHC RDW Lymph % (Auto) Lymph # (Auto) [place] # (Auto) Seg Neutrophils % Seg Neuts % (Manual) Lymphocytes % (Manual) Nucleated RBC % Seg Neutrophils # Seg Neutrophils # Man Lymphocytes # (Manual) Monocytes # (Manual) Eosinophils # (Manual) PT INR APTT D-Dimer Heparin Anti-Xa Level ABG pH POC ABG pCO2 POC ABG pO2 114.2 H ABG pO2 ABG HCO3 ABG Hemoglobin 7.8 L ABG Oxyhemoglobin ABG Sodium 132.3 L ABG Potassium 4.6 H ABG Chloride ABG Glucose Carboxyhemoglobin Sodium Potassium Chloride Carbon Dioxide BUN Creatinine Glucose POC Glucose 113 H 111 H Lactic Acid Calcium Phosphorus Magnesium Ferritin Direct Bilirubin AST ALT Lactate Dehydrogenase Total Creatine Kinase C-Reactive Protein Total Protein Albumin Triglycerides Arterial Blood Glucose Arterial Blood Ionized Calcium 4.4 L Urine Creatinine Urine Chloride Vancomycin Trough Coronavirus (PCR) Crossmatch 07/10/20 07/10/20 07/10/20 03:49 03:55 03:55 WBC 18.1 H RBC 2.37 L Hgb 6.8 L Hct 20.7 L MCHC RDW 16.9 H Lymph % (Auto) Lymph # (Auto) [place] # (Auto) Seg Neutrophils % Seg Neuts % (Manual) 79.0 H Lymphocytes % (Manual) 10.0 L Nucleated RBC % 1.0 H Seg Neutrophils # Seg Neutrophils # Man 14.3 H Lymphocytes # (Manual) Monocytes # (Manual) Eosinophils # (Manual) 0.7 H PT INR APTT D-Dimer Heparin Anti-Xa Level ABG pH POC ABG pCO2 POC ABG pO2 ABG pO2 ABG HCO3 ABG Hemoglobin 7.7 L ABG Oxyhemoglobin ABG Sodium 130.3 L ABG Potassium 4.6 H ABG Chloride ABG Glucose Carboxyhemoglobin Sodium 136 L Potassium Chloride 96.0 L Carbon Dioxide BUN 76 H Creatinine 3.6 H Glucose POC Glucose Lactic Acid Calcium 7.4 L Phosphorus Magnesium Ferritin Direct Bilirubin AST ALT Lactate Dehydrogenase Total Creatine Kinase C-Reactive Protein Total Protein Albumin Triglycerides Arterial Blood Glucose Arterial Blood Ionized Calcium 4.2 L Urine Creatinine Urine Chloride Vancomycin Trough Coronavirus (PCR) Crossmatch 07/10/20 13:24 WBC RBC Hgb Hct MCHC RDW Lymph % (Auto) Lymph # (Auto) [place] # (Auto) Seg Neutrophils % Seg Neuts % (Manual) Lymphocytes % (Manual) Nucleated RBC % Seg Neutrophils # Seg Neutrophils # Man Lymphocytes # (Manual) Monocytes # (Manual) Eosinophils # (Manual) PT INR APTT D-Dimer Heparin Anti-Xa Level ABG pH POC ABG pCO2 POC ABG pO2 ABG pO2 ABG HCO3 ABG Hemoglobin ABG Oxyhemoglobin ABG Sodium ABG Potassium ABG Chloride ABG Glucose Carboxyhemoglobin Sodium Potassium Chloride Carbon Dioxide BUN Creatinine Glucose POC Glucose Lactic Acid Calcium Phosphorus Magnesium Ferritin Direct Bilirubin AST ALT Lactate Dehydrogenase Total Creatine Kinase C-Reactive Protein Total Protein Albumin Triglycerides Arterial Blood Glucose Arterial Blood Ionized Calcium Urine Creatinine Urine Chloride Vancomycin Trough Coronavirus (PCR) Crossmatch See Detail Chest x-ray: image reviewed (moderate bilateral pulmonary infiltrates) Allied health notes reviewed: nursing
[2020-07-11] MEDS: INSULIN REGULAR, HUMAN 100 UNITS/1 ML SUB-Q SCH ×4 (00:16→17:49)
[2020-07-11] MEDS: fentaNYL DRIP Premix 2,000 MCG/100 ML BAG IV SCH ×4 (04:22→22:23)
[2020-07-11] MEDS: HEPARIN 5,000 UNIT/1 ML VIAL SUB-Q SCH ×3 (05:23→22:00)
[2020-07-11] MEDS: SODIUM BICARBONATE 650 MG TAB PO SCH ×3 (07:41→21:25)
[2020-07-11 07:52] LABS: Blood Urea Nitrogen 101 mg/dL (9-20); Calcium 7.8 mg/dL (8.4-10.2); Hemolysis Index 136
[2020-07-11 07:53] LABS: BUN/Creatinine Ratio 22
[2020-07-11 07:56] LABS: Hematocrit 24.8 % (35.5-45.6); Hemoglobin 8.2 gm/dl (11.8-15.2); Mean Corpuscular HGB Conc 33 % (32-34); Mean Corpuscular Volume 85 fl (84-94); Red Blood Count 2.91 M/mm3 (3.65-5.03); Red Cell Distribution Width 17.2 % (13.2-15.2)
[2020-07-11 07:57] LABS: Platelet Count 268 K/mm3 (140-440)
[2020-07-11 09:20] LABS: Calcium 7.6 mg/dL (8.4-10.2)
[2020-07-11] MEDS: FAMOTIDINE 20 MG/2 ML INJ IV SCH (09:37)
[2020-07-11] MEDS: DOCUSATE SODIUM 100 MG/10 ML ORAL LIQD FEEDTUBE SCH ×2 (09:38→21:21)
[2020-07-11] MEDS: ZINC SULFATE 220 MG CAP PO SCH ×2 (09:38→21:24)
[2020-07-11] MEDS: dexAMETHasone 4 MG/ML VIAL IV SCH (09:38)
[2020-07-11] MEDS: ASCORBIC ACID 250 MG TAB PO SCH ×2 (09:38→21:24)
[2020-07-11] MEDS: QUEtiapine 200 MG TAB PO SCH ×2 (09:38→21:21)
[2020-07-11] MEDS: CHOLECALCIFEROL (VIT D3) 1000 UNIT (25 mcg) TAB PO SCH (09:38)
[2020-07-11] MEDS: AMIODARONE 200 MG TAB PO SCH ×2 (09:38→21:21)
[2020-07-11] MEDS: POLYETHYLENE GLYCOL 3350 17 GM POWDER PO SCH (09:40)
[2020-07-11] MEDS ORDERED: HEPARIN 10,000 UNITS/10 ML VIAL ONE (10:47)
[2020-07-11] MEDS: NORepinephrine/NS 4 MG-250 ML 4 MG/250 ML BAG IV SCH (10:49)
[2020-07-11 11:14] LABS: Band Neutrophils # (Manual) 1.8 K/mm3; Total Cells Counted 100
[2020-07-11 11:15] LABS: Anisocytosis 1+; Toxic Granulation 1+
[2020-07-11 11:16] LABS: Large Platelets Few; Platelet Estimate Consistent w Auto
--- NOTE | 2020-07-11 11:29 | Progress Note ---
<DARYL OTTO - Last Filed: 07/11/20 11:45> Assessment and Plan Assessment and plan: Acute metabolic encephalopathy -Due to severe sepsis and severe hypoxia -CT head showed no acute process -Supportive care with frequent neuro check Acute hypoxic respiratory failure -Due to severe COVID-19 pneumonia -Intubated following admission overnight as patient was unable to maintain oxygenation with 100% FiO2 with BiPAP -Critical care following -s/p empiric steroid -Pulmonary hygiene -Wean MV as tolerated -VAP bundle Severe septic shock -s/p pressor support -2/ to COVID 19 infection - CCM consulted, appreciate recommendations COVID-19 pneumonia -Trend inflammatory markers -ID consulted, appreciate recommendations -Patient initially tested positive for COVID-19 virus about 2 weeks before this admission -CXR showed patchy parenchymal disease which represent pulmonary edema or atypical pneumonia -s/p Dexamethasone for total 10 days and remdesivir total 5 days -Abc therapy -Droplet/contact isolation -Continue SPO2 monitoring -Supplemental oxygen as needed -Pulmonary hygiene, Prone intermittently to improve oxygenation -Vitamin C, vitamin D, zinc -Anticoagulation per protocol GIRISH, likely ATN -Avoid nephrotoxins -Renally dose medications -Strict intake and output -Consulted nephrology,apprecaite recommendations -Initiated on hemodialysis on 06/22/20 -HD per nephrology Hyperkalemia -Treated aggressively, due to renal failure -s/p Calcium gluconate IV sodium bicarbonate and Kayexalate given -HD initiated d/t persistent hyperkalema -Electorate corrections with HD Supraventricular tachycardia/paroxysmal atrial fibrillation -likely due to severe sepsis -Status post IV amiodarone drip for rate control -Currently on Cardizem PO -Consulted cardiology, appreciate recommendations -06/29 echo showed preserved EF -Placed on heparin drip but discontinued due to severe anemia requiring transfusion Elevated LFTs -due to shock liver from severe sepsis and COVID-19 infection -Continue to trend Anemia likely due to severe sepsis and declining renal function -s/p 4 units PRBC during stay -Transfuse for h/h <7 -Trend CBC Morbid obesity, -Associated with poor outcome with Covid infection -need counseling for diet and exercise and healthy lifestyles once clinically stable as outpatient DVT prophylaxis -GI prophaylaxis -Heparin subq -SCDS to BLE while in bed History Interval history: 59-year-old white male who was admitted for pneumonia secondary to Covid with associated respiratory failure and sepsis. 06/18: Patient got intubated overnight. Patient was placed on BiPAP to maintain oxygenation with 100% FiO2 but apparently he found to take off his argueta which made his oxygen saturation go down at 60s/50s and patient was found altered mental status. Code met was called immediately. Patient was transferred to ICU and intubated, patient currently on 2 pressors, intubated with 100% FiO2, renal function noted to be decline, nephrology consulted. Discussed with [place] physician Dr. Thompson and requested call back on Saturday. Poor prognosis, continue to monitor with aggressive supportive care. Also called family/ to update clinical status. 06/19: Repeat COVID test was positive. cont cefepime, remdesivir per ID recomm endation. follow inflammatory markers, cbc, bmp. placed on heparin drip for atrial fib 06/20: Remains on mechanical ventilation, on 2 pressors, on heparin drip. discussed with and daughter by phone. Renal function declining. cont supportive care for now. 06/21: Renal function cont to decline, urine outpt sig decreased. started on lasix 80mg BID, plan to follow urine output, if no improvement patient need to start on HD. called and daughter today. updated all clinical details 06/22: Renal function continues to decline with uremia and hyperkalemia. Will need to proceed with hemodialysis. Nephrology discussed with the family and they agrees for the hemodialysis. Patient remains on pressor support and mechanical ventilation. Vas-Cath placed today by vascular started on hemodialysis today. 06/23: 2nd round of HD today, remains on 2 pressors. per RN not tolerating TF, has no record of BM since 06/18. start on stool softner. follow cbc/bmp. updated family( and daughter) by phone -all question answered to best of my knowledge and to their satisfaction. Patient remains critically ill with a very poor prognosis. 06/24: Continue supportive care, Very poor prognosis, Manager Java to discuss with family in am due to the futility of the condition. 06/25/2020 continue supportive care very poor prognosis 06/26/2020 continue supportive care very poor prognosis family updated 06/27/2020 continue supportive care and weaning if possible 06/28/2020 continue supportive care, talk with at length 06/29: Resumed care. K level persistently high. give one dose of bicarbonate, plan for HD today, recheck k after HD. updated family by phone 06/30: updated family by phone. Patient remains on amiodarone drip and vasopressin. Getting HD at the bedside. Tolerating tube feeding at low rate. 07/01: Hb dropped to 6.4 today, transfuse one unit PRBC. patient is off pressor today, remains on amioderone. cont to monitor 07/02: Called patient and updated clinical details. Patient remains critically ill, still intubated. Patient's oxygen requirement and PEEP pressure has went down. Continue weaning protocol per critical care recommendation. Patient remains off pressor. Continue to wean off from amiodarone and plan to rate control with p.o. medications. Tolerating tube feeding. H&H stable today. Order for stool for occult blood. Monitor H&H and BMP. Continue to follow clinically 07/03: discussed with [place] physician today. Patient back on 100percent Fio2 since last night. planned for emergent Hd today. spiked fever, start IV Cefepime + Vancomycin renally dosed. Restarted Levophed today, remains on amiodarone drip. Patient family was updated by critical care attending today. 07/04: Patient has hemodialysis yesterday and also plan for today for volume overload and pulmonary edema. Patient currently on 80% FiO2. Remains on Levophed and amiodarone. Hemoglobin dropped to 6.7 without any evidence of active bleeding. LFTs remain stable. Repeat Covid test on 06/30 and 07/03 remains positive. Will transfuse another unit of packed RBC today. Called family for update -explained family that patient is critically ill with very poor prognosis. 07/05: Patient on 70% FiO2 with PEEP of 14. h/h stable after transfusion. hyperkalemia improved, cont sodiumbicarbonate pill with TF. follow BMP. off levophed today, remains on amioderone. poor prognosis. 07/06: Patient remains on amiodarone drip, maintaining BP without any pressor. FiO2 requirement trended down to 60% with PEEP of 14. Continue to follow clinically. Plan to wean off amiodarone drip as tolerated. Wean off from sedation as tolerated. Updated family. Patient remains critically ill with poor prognosis. 07/07: Called family for update. Off amiodarone drip today, patient also off pressor. FiO2 requirement trended up again to 80-100%. Continue to provide supportive care, monitor clinically. Having difficulty to wean off from the vent support. Patient is persistently positive for COVID-19 and COVID-19 antibody is nonreactive. Patient remains critically ill with very poor prognosis. 07/08: Continue supportive care. Costume Cutter certified physician assistant and asphalt roller person input noted. Prognosis remains guarded to poor. Management per team. Critical care time 35-minute 07/09/20 patient is tachycardic. Heart rate 121. Hemoglobin 7.3. Patient is having hemodialysis. Continue supportive care. Patient having difficulty to wean off from the vent support. Prognosis is poor. Nephrology and cardiology follow-up. Recheck CBC BMP in the morning. Continue current management. 07/10/20 patient seen and examined, remains on full ventilator patient is doing better. Patient is off pressor. heart rate 123. Hemoglobin 6.8 and hematocrit 20.7. WBC is 18.1. Continue supportive care. Patient having difficulty to wean off from the vent support. We will started on Zosyn 4.5 g IV every 8 hours. Will transfuse 1 unit of packed red blood cell. Prognosis is poor. Nephrology and cardiology follow up. Recheck CBC BMP in the morning 07/11: remains off vasopressor, h/h appropriately responded to 1 unit PRBC. HD today. Remain on MV with fiO2 at 70%. peep 10. No acute events reported overnight. Hospitalist Physical - Constitutional Vitals: Temp Pulse Resp BP Pulse Ox 98.5 F 133 H 16 90/47 96 07/11/20 03:38 07/11/20 11:00 07/11/20 11:00 07/11/20 11:00 07/11/20 11:00 General appearance: Present: mild distress, well-nourished - EENT ENT: clear oral mucosa - Neck Neck: Present: supple - Respiratory Respiratory effort: normal - Cardiovascular Rhythm: regular - Extremities Extremities: no ischemia, pulses intact, pulses symmetrical Peripheral Pulses: within normal limits - Abdominal General gastrointestinal: soft, non-tender, non-distended - Integumentary Integumentary: Present: warm, dry - Psychiatric Psychiatric: other (sedated) - Neurologic Neurologic: other (sedated) HEART Score - HEART Score Troponin: Troponin T < 0.010 ng/mL (0.00-0.029) 06/17/20 12:33 Results - Labs CBC & Chem 7: 07/11/20 06:52 07/11/20 08:48 Labs: Laboratory Last Values WBC 26.0 K/mm3 (4.5-11.0) H 07/11/20 06:52 RBC 2.91 M/mm3 (3.65-5.03) L 07/11/20 06:52 Hgb 8.2 gm/dl (11.8-15.2) L 07/11/20 06:52 Hct 24.8 % (35.5-45.6) L 07/11/20 06:52 MCV 85 fl (84-94) 07/11/20 06:52 MCH 28 pg (28-32) 07/11/20 06:52 MCHC 33 % (32-34) 07/11/20 06:52 RDW 17.2 % (13.2-15.2) H 07/11/20 06:52 Plt Count 268 K/mm3 (140-440) 07/11/20 06:52 Lymph % (Auto) 11.5 % (13.4-35.0) L 07/08/20 04:00 Osborne % (Auto) 6.2 % (0.0-7.3) 07/08/20 04:00 Eos % (Auto) 3.4 % (0.0-4.3) 07/08/20 04:00 Baso % (Auto) 0.7 % (0.0-1.8) 07/08/20 04:00 Lymph # (Auto) 1.2 K/mm3 (1.2-5.4) 07/08/20 04:00 Osborne # (Auto) 0.6 K/mm3 (0.0-0.8) 07/08/20 04:00 Eos # (Auto) 0.4 K/mm3 (0.0-0.4) 07/08/20 04:00 Baso # (Auto) 0.1 K/mm3 (0.0-0.1) 07/08/20 04:00 Add Manual Diff Complete 07/11/20 06:52 Total Counted 100 07/11/20 06:52 Seg Neutrophils % 78.2 % (40.0-70.0) H 07/08/20 04:00 Seg Neuts % (Manual) 65.0 % (40.0-70.0) 07/11/20 06:52 Band Neutrophils % 7.0 % 07/11/20 06:52 Lymphocytes % (Manual) 1.0 % (13.4-35.0) L 07/11/20 06:52 Reactive Lymphs % (Man) 1.0 % 06/23/20 04:00 Monocytes % (Manual) 11.0 % (0.0-7.3) H 07/11/20 06:52 Eosinophils % (Manual) 4.0 % (0.0-4.3) 07/11/20 06:52 Metamyelocytes % 12.0 % 07/11/20 06:52 Myelocytes % 2.0 % 07/10/20 03:55 Nucleated RBC % Not Reportable 07/11/20 06:52 Seg Neutrophils # 8.0 K/mm3 (1.8-7.7) H 07/08/20 04:00 Seg Neutrophils # Man 16.9 K/mm3 (1.8-7.7) H 07/11/20 06:52 Band Neutrophils # 1.8 K/mm3 07/11/20 06:52 Lymphocytes # (Manual) 0.3 K/mm3 (1.2-5.4) L 07/11/20 06:52 Abs React Lymphs (Man) 0.0 K/mm3 07/11/20 06:52 Monocytes # (Manual) 2.9 K/mm3 (0.0-0.8) H 07/11/20 06:52 Eosinophils # (Manual) 1.0 K/mm3 (0.0-0.4) H 07/11/20 06:52 Basophils # (Manual) 0.0 K/mm3 (0.0-0.1) 07/11/20 06:52 Metamyelocytes # 3.1 K/mm3 07/11/20 06:52 Myelocytes # 0.0 K/mm3 07/11/20 06:52 Promyelocytes # 0.0 K/mm3 07/11/20 06:52 Blast Cells # 0.0 K/mm3 07/11/20 06:52 Pathologist Review Not Reportable 06/26/20 05:47 WBC Morphology Not Reportable 07/11/20 06:52 Hypersegmented Neuts Not Reportable 07/11/20 06:52 Hyposegmented Neuts Not Reportable 07/11/20 06:52 Hypogranular Neuts Not Reportable 07/11/20 06:52 Smudge Cells Not Reportable 07/11/20 06:52 Toxic Granulation 1+ 07/11/20 06:52 Toxic Vacuolation Not Reportable 07/11/20 06:52 Dohle Bodies Not Reportable 07/11/20 06:52 Pelger-Huet Anomaly Not Reportable 07/11/20 06:52 Carlito Rods Not Reportable 07/11/20 06:52 Platelet Estimate Consistent w auto 07/11/20 06:52 Clumped Platelets Not Reportable 07/11/20 06:52 Plt Clumps, EDTA Not Reportable 07/11/20 06:52 Large Platelets Few 07/11/20 06:52 Giant Platelets Not Reportable 07/11/20 06:52 Platelet Satelliting Not Reportable 07/11/20 06:52 Plt Morphology Comment Not Reportable 07/11/20 06:52 RBC Morphology Not Reportable 07/11/20 06:52 Dimorphic RBCs Not Reportable 07/11/20 06:52 Polychromasia Not Reportable 07/11/20 06:52 Hypochromasia Not Reportable 07/11/20 06:52 Poikilocytosis Not Reportable 07/11/20 06:52 Anisocytosis 1+ 07/11/20 06:52 Microcytosis Not Reportable 07/11/20 06:52 Macrocytosis Not Reportable 07/11/20 06:52 Spherocytes Not Reportable 07/11/20 06:52 Pappenheimer Bodies Not Reportable 07/11/20 06:52 Sickle Cells Not Reportable 07/11/20 06:52 Target Cells Not Reportable 07/11/20 06:52 Tear Drop Cells Not Reportable 07/11/20 06:52 Ovalocytes Not Reportable 07/11/20 06:52 Stomatocytes Rare 07/10/20 03:55 Helmet Cells Not Reportable 07/11/20 06:52 Brothers-Tarnov Bodies Not Reportable 07/11/20 06:52 [place] Rings Not Reportable 07/11/20 06:52 Newberry Cells Not Reportable 07/11/20 06:52 Bite Cells Not Reportable 07/11/20 06:52 Crenated Cell Not Reportable 07/11/20 06:52 Elliptocytes Not Reportable 07/11/20 06:52 Acanthocytes (Spur) Not Reportable 07/11/20 06:52 Rouleaux Not Reportable 07/11/20 06:52 Hemoglobin C Crystals Not Reportable 07/11/20 06:52 Schistocytes Not Reportable 07/11/20 06:52 Malaria parasites Not Reportable 07/11/20 06:52 Victoriano Bodies Not Reportable 07/11/20 06:52 Hem Pathologist Commnt No 07/11/20 06:52 PT 17.4 Sec. (12.2-14.9) H 06/26/20 05:47 INR 1.44 (0.87-1.13) H 06/26/20 05:47 APTT 28.5 Sec. (24.2-36.6) 06/26/20 05:47 D-Dimer 6608.00 ng/mlDDU (0-234) H 07/03/20 14:50 Heparin Anti-Xa Level < 0.10 U.I./ml (0.3-0.7) L 06/26/20 01:30 ABG pH 7.377 (7.320-7.450) 07/11/20 04:08 POC ABG pCO2 43.3 mmHg (32.0-48.0) 07/11/20 04:08 ABG pCO2 56.4 mm Hg 07/05/20 04:30 POC ABG pO2 92.1 mmHg (83-108) 07/11/20 04:08 ABG pO2 151.9 mm Hg (80.0-90.0) H 07/05/20 04:30 POC ABG HCO3 24.9 07/11/20 04:08 ABG HCO3 26.8 mmol/L (20.0-26.0) H 07/05/20 04:30 ABG O2 Saturation 98.7 % (95.0-99.0) 07/05/20 04:30 ABG O2 Content 5.0 (0.0-44) 07/04/20 05:20 POC ABG Base Excess -0.3 07/11/20 04:08 ABG Base Excess 0.1 mmol/L (-2.0-3.0) 07/05/20 04:30 ABG Hemoglobin 8.5 (12.0-17.5) L 07/11/20 04:08 ABG Oxyhemoglobin 95.7 (94-98) 07/11/20 04:08 ABG Carboxyhemoglobin 1.7 % (0.0-5.0) 07/05/20 04:30 ABG Methemoglobin 0.1 (0.0-1.5) 07/11/20 04:08 ABG Sodium 130.6 mmol/L (136.0-145.0) L 07/11/20 04:08 ABG Potassium 4.9 mmol/L (3.40-4.50) H 07/11/20 04:08 ABG Chloride 98.0 mmol/L (98-107) 07/11/20 04:08 ABG Glucose 105 mg/dL (65-95) H 07/11/20 04:08 Oxyhemoglobin 96.5 % (95.0-99.0) 07/05/20 04:30 Carboxyhemoglobin 1.0 (0.5-1.5) 07/11/20 04:08 FiO2 70 07/11/20 04:08 Sodium 134 mmol/L (137-145) L 07/11/20 08:48 Potassium 5.3 mmol/L (3.6-5.0) H 07/11/20 08:48 Chloride 94.8 mmol/L (98-107) L 07/11/20 08:48 Carbon Dioxide 27 mmol/L (22-30) 07/11/20 08:48 Anion Gap 18 mmol/L 07/11/20 08:48 BUN 99 mg/dL (9-20) H 07/11/20 08:48 Creatinine 4.6 mg/dL (0.8-1.3) H 07/11/20 08:48 Estimated GFR 16 ml/min 07/11/20 08:48 BUN/Creatinine Ratio 22 % 07/11/20 08:48 Glucose 102 mg/dL (75-100) H 07/11/20 08:48 POC Glucose 98 mg/dL (70-105) 07/11/20 04:58 Lactic Acid 1.10 mmol/L (0.7-2.0) 07/10/20 03:55 Calcium 7.6 mg/dL (8.4-10.2) L 07/11/20 08:48 Phosphorus 9.40 mg/dL (2.5-4.5) H 06/30/20 03:50 Magnesium 2.70 mg/dL (1.7-2.3) H 06/18/20 20:33 Ferritin 1171.0 ng/mL (30.0-300.0) H 07/03/20 14:50 Total Bilirubin 0.60 mg/dL (0.1-1.2) 07/05/20 08:21 Direct Bilirubin 0.5 mg/dL (0-0.2) H 07/05/20 08:21 Indirect Bilirubin 0.1 mg/dL 07/05/20 08:21 AST 75 units/L (5-40) H 07/05/20 08:21 ALT 86 units/L (7-56) H 07/05/20 08:21 Alkaline Phosphatase 107 units/L (35-129) 07/05/20 08:21 Lactate Dehydrogenase 525 units/L (91-180) H 07/03/20 14:50 Total Creatine Kinase 618 units/L (55-170) H 06/29/20 Unknown Troponin T < 0.010 ng/mL (0.00-0.029) 06/17/20 12:33 C-Reactive Protein 31.50 mg/dL (0.00-1.30) H 07/03/20 14:50 Total Protein 5.6 g/dL (6.3-8.2) L D 07/05/20 08:21 Albumin 1.9 g/dL (3.9-5) L 07/05/20 08:21 Albumin/Globulin Ratio 0.5 % 07/05/20 08:21 Triglycerides 258 mg/dL (2-149) H 07/05/20 08:21 Procalcitonin 14.50 ng/mL (<0.15) 07/10/20 03:55 Arterial Blood Glucose 105 mg/dL (65-95) H 07/11/20 04:08 Arterial Blood Ionized Calcium 4.1 mg/dL (4.6-5.3) L 07/11/20 04:08 Urine Color Yellow (Yellow) 06/17/20 15:57 Urine Turbidity Clear (Clear) 06/17/20 15:57 Urine pH 6.0 (5.0-7.0) 06/17/20 15:57 Ur Specific [place] 1.019 (1.003-1.030) 06/17/20 15:57 Urine Protein 30 mg/dl mg/dL (Negative) 06/17/20 15:57 Urine Glucose (UA) Neg mg/dL (Negative) 06/17/20 15:57 Urine Ketones Neg mg/dL (Negative) 06/17/20 15:57 Urine Blood Sm (Negative) 06/17/20 15:57 Urine Nitrite Neg (Negative) 06/17/20 15:57 Ur Reducing Substances Not Reportable 06/17/20 15:57 Urine Bilirubin Neg (Negative) 06/17/20 15:57 Urine Ictotest Not Reportable 06/17/20 15:57 Urine Urobilinogen < 2.0 mg/dL (<2.0) 06/17/20 15:57 Ur Leukocyte Esterase Neg (Negative) 06/17/20 15:57 Urine WBC (Auto) 1.0 /HPF (0.0-6.0) 06/17/20 15:57 Urine RBC (Auto) 2.0 /HPF (0.0-6.0) 06/17/20 15:57 Urine Mucus Few /HPF 06/17/20 15:57 Urine Creatinine 192.4 mg/dL (0.1-20.0) H 06/18/20 15:00 Urine Sodium 28 mmol/L 06/18/20 15:00 Urine Chloride 31.1 mmolL (110-250) L 06/18/20 15:00 Nasal Screen MRSA (PCR) Negative (Negative) 06/19/20 10:38 Vancomycin Trough 22.7 ug/mL (5.0-20.0) H 06/20/20 08:25 Coronavirus (PCR) Positive (Negative) A 07/03/20 10:10 Hepatitis A IgM Ab Non-reactive (NonReactive) 06/22/20 17:00 Hep Bs Antigen Non-reactive (Negative) 06/22/20 17:00 Hep B Core IgM Ab Non-reactive (NonReactive) 06/22/20 17:00 Hepatitis C Antibody Non-reactive (NonReactive) 06/22/20 17:00 SARS-CoV-2 IgG Ab Nonreactive (NonReactive) 07/04/20 05:20 Blood Type A POSITIVE 07/10/20 13:24 Antibody Screen Negative 07/10/20 13:24 Crossmatch See Detail 07/10/20 13:24 - Diagnostic Impressions Diagnostic Impressions: Echocardiogram 06/29/20 06:00 Transthoracic Echocardiogram Indication: A-fib BP: 105/47 HR: 99 Conclusions *The study is technically very difficult and limited due to poor acoustic windows. *Global left ventricular wall motion and contractility are within normal limits. *The estimated ejection fraction is 55-60%. *There is no pericardial effusion. Findings Procedure Info: The study quality is technically difficult. The study is technically limited due to poor acoustic windows. Left Ventricle: Global left ventricular wall motion and contractility are within normal limits. Global left ventricular systolic function is normal. The estimated ejection fraction is 55-60%. Left Atrium: The left atrium is not well visualized. Right Ventricle: The right ventricle is not well visualized. Right Atrium: The right atrium is not well visualized. Aortic Valve: The aortic valve is not well visualized. Mitral Valve: The mitral valve is not well visualized. Tricuspid Valve: The tricuspid valve is not well visualized. Pulmonic Valve: The pulmonic valve is not well visualized. Pericardium: There is no pericardial effusion. Venous: There is no change in the dimension of the inferior vena cava with respiration consistent with markedly increased right atrial pressure. [place]ell/IV: Voiding Method Indwelling Catheter Active Medications - Current Medications Current Medications: Generic Name Dose Route Start Last Admin Trade Name Freq PRN Reason Stop Dose Admin Acetaminophen 650 mg 06/17/20 14:17 07/03/20 09:16 Acetaminophen 325 Mg Tab PO 650 mg Q4H PRN Administration Pain MILD(1-3)/Fever >100.5/ROBERTS Amiodarone HCl 200 mg 07/08/20 12:30 07/11/20 09:38 Amiodarone 200 Mg Tab PO 200 mg BID CONNOR Administration Lipase/Protease/Amylase 1 each 06/19/20 12:15 Lipase 10,500/Protease 25,000/Amylase 43,750 (Units) Dr Kulkarni FEEDTUBE PRN PRN For Clogged Feeding Tube Ascorbic Acid 250 mg 06/17/20 22:00 07/11/20 09:38 Ascorbic Acid 250 Mg Tab PO 250 mg BID CONNOR Administration Cholecalciferol 1,000 unit 06/18/20 10:00 07/11/20 09:38 Cholecalciferol (Vit D3) 1000 Unit (25 Mcg) Tab PO 1,000 unit DAILY CONNOR Administration Dexamethasone 6 mg 07/03/20 14:00 07/11/20 09:38 Dexamethasone 4 Mg/Ml Vial IV 07/13/20 13:59 6 mg DAILY CONNOR Administration Docusate Sodium 100 mg 06/23/20 15:00 07/11/20 09:38 Docusate Sodium 100 Mg/10 Ml Oral Liqd FEEDTUBE 100 mg BID CONNOR Administration Famotidine 20 mg 06/20/20 11:00 07/11/20 09:37 Famotidine 20 Mg/2 Ml Inj IV 20 mg DAILY CONNOR Administration Fentanyl 50 mcg 06/18/20 01:02 07/09/20 00:20 Fentanyl 100 Mcg/2 Ml Inj IV 50 mcg Q10MIN PRN Administration ANALGESIA Heparin Sodium (Porcine) 5,000 unit 06/22/20 12:53 06/30/20 13:36 Heparin 10,000 Unit/1 Ml Vial IV 5,000 unit PAM PRN Administration hemodialysis Heparin Sodium (Porcine) 5,000 unit 07/03/20 22:00 07/11/20 05:23 Heparin 5,000 Unit/1 Ml Vial SUB-Q 5,000 unit Q8HR CONNOR Administration Hydrophilic Ointment 1 applic 06/17/20 22:52 07/02/20 20:45 Lip Therapy Vaseline TP 1 applic Q2HR PRN Administration Dry Lips Propofol 1,000 mg in 100 mls @ 3.402 mls/hr 06/18/20 01:00 07/10/20 21:47 Diprivan 10 Mg/Ml IV 10 mcg/kg/min TITR CONNOR 6.804 mls/hr Administration Protocol 5 MCG/KG/MIN Fentanyl Citrate 2,000 mcg in 100 mls @ 5.67 mls/hr 06/18/20 02:00 07/11/20 09:38 Fentanyl Drip Premix IV 3 mcg/kg/hr TITR CONNOR 17.01 mls/hr Administration Protocol 1 MCG/KG/HR Sodium Chloride 500 mls @ 1 mls/hr 06/18/20 09:38 06/19/20 21:37 Nacl 0.9% 500 Ml IV 0 mls/hr DIRECT PRN Infusion ARTERIAL LINE FLUSH Norepinephrine 4 mg in 250 mls @ 7.5 mls/hr 07/08/20 02:06 07/11/20 11:03 Levophed Drip 4 Mg/Ns 250 Ml IV 4 mcg/min TITR CONNOR 15 mls/hr Titration Protocol 2 MCG/MIN Sodium Chloride 100 mls @ 999 mls/hr 07/08/20 12:19 Nacl 0.9% IV PAM PRN Hypotension Vasopressin 20 unit/ Sodium 101 mls @ 9.09 mls/hr 07/11/20 11:00 Chloride IV TITR CONNOR Protocol 0.03 UNITS/MIN Insulin Human Regular 0 units 06/18/20 12:00 07/11/20 05:24 Insulin Regular, Human 100 Units/1 Ml SUB-Q Not Given Q6HR CONNOR Protocol Multi-Ingred Cream/Lotion/Oil/Oint 1 applic 06/17/20 22:52 Mineral Oil/Petrolatum, White Ophth Oint 3.5 Gm OU Q4HR PRN Dry Eye(s) Ondansetron HCl 4 mg 06/17/20 14:17 Ondansetron 4 Mg/2 Ml Inj IV Q8H PRN Nausea And Vomiting Polyethylene Glycol 17 gm 06/23/20 15:00 07/11/20 09:40 Polyethylene Glycol 3350 17 Gm Powder PO 17 gm QDAY CONNOR Administration Quetiapine Fumarate 200 mg 06/28/20 13:00 07/11/20 09:38 Quetiapine 200 Mg Tab PO 200 mg BID CONNOR Administration Simple Syrup 15 ml 06/19/20 12:15 Simple Syrup 15 Ml FEEDTUBE PRN PRN Hypoglycemia Simple Syrup 30 ml 06/19/20 12:15 Simple Syrup 15 Ml FEEDTUBE PRN PRN Hypoglycemia Sodium Bicarbonate 325 mg 06/19/20 12:15 Sodium Bicarbonate 325 Mg Tab FEEDTUBE PRN PRN For Clogged Feeding Tube Sodium Bicarbonate 650 mg 07/04/20 10:00 07/11/20 07:41 Sodium Bicarbonate 650 Mg Tab PO 650 mg TID CONNOR Administration Sodium Chloride 10 ml 06/17/20 22:00 07/10/20 21:46 Sodium Chloride 0.9% 10 Ml Flush Syringe IV 10 ml BID CONNOR Administration Sodium Chloride 10 ml 06/17/20 14:17 Sodium Chloride 0.9% 10 Ml Flush Syringe IV PRN PRN LINE FLUSH Sodium Polystyrene Sulfonate 15 gm 07/03/20 11:19 07/05/20 10:36 Sodium Polystyrene 15 Gm/60 Ml Oral Liqd PO 15 gm Q6HR PRN Administration Hyperkalemia Zinc Sulfate 220 mg 06/17/20 22:00 07/11/20 09:38 Zinc Sulfate 220 Mg Cap PO 220 mg BID CONNOR Administration Nutrition/Malnutrition Assess - Dietary Evaluation Nutrition/Malnutrition Findings: Nutrition Notes Start: 06/18/20 10:28 Freq: Status: Active Protocol: Document 07/05/20 12:08 AL (Rec: 07/05/20 12:33 AL [id number]) Co-Sign 07/05/20 12:08 NHALL Nutrition Notes Initial or Follow up Reassessment Current Diagnosis Acute Kidney Injury,Sepsis, Respiratory Failure Other Pertinent Diagnosis COVID-19 (+), pneu Current Diet Nepro 1.8 at 40ml/hr Labs/Tests K 6 BUN 80 Cr 4.3 Na 133 Pertinent Medications Reglan Propofol at 10.2046 ml/hr (269 kcal) Colace Kionex Decadron Miralax Height 6 ft Weight 138.4 kg [place] Body Weight (kg) 80.90 BMI 41.3 Weight Status Obese Subjective/Other Information FU for stable TF. Pt tolerating TF at 40 ml/hr ( goal rate). Percent of energy/protein needs met: 89%/48% Burn Absent Trauma Absent Current % PO Negligible Minimum of two criteria No physical signs of malnutrition #2 Nutrition Diagnosis Overweight/obesity Diagnosis Progress(for reassessment Continues documentation) #1 Nutrition Diagnosis Inadequate oral intake Diagnosis Progress(for reassessment Continues documentation) Is patient on ventilator? Yes Is Patient Ambulatory and/or Out of Bed No REE-([facility]-confined to bed) 2670.696 Kcal/Kg value to use for calculation 14 Approximate Energy Requirements Using 1938 kcal/Kg Calculation Used for Recommendations Kcal/kg Additional Notes Protein needs up to >2 g/kg IBW: 162 g Fluid needs: 1,000 ml + output Nutrition Intervention Change Diet Order: TF Nutrition Support: Nepro 1.8 at 40ml/hr. Flush 70 ml q4hr for hyponatremia Flush 170ml q4h once resolved If proning regimen: Prone (12 hr): 20 ml/hr. Flush 85 ml q4h. Supine: 60 ml/hr Flush 255 ml q4h. [ End ] Kcal 1,728 Protein (gm) 78 Fluid (mL) 698 Goal #1 Tolerate TF at goal rate Goal #2 Meet energy and protein needs as best as possible. Anticipated Discharge Needs: Unable to determine at the time. Follow-Up By: 07/12/20 Additional Comments F/U for TF tolerance and labs, wt, and vent status <ZEESHAN CHAIDEZ - Last Filed: 07/13/20 07:16> Assessment and Plan Assessment and plan: I saw and evaluated the patient. I agree with the findings and the plan of care as documented in the Nurse Practitioner's~note, with the following corrections and additions. The high probability of a clinically significant, sudden or life threatening deterioration of the [PULMONARY] system(s) required my full and direct attention, intervention and personal management. The aggregate critical care time was [35] minutes. This time is in addition to time spent performing reported procedures but includes the following: [X] Data Review and interpretation [X] Patient assessment and monitoring of vital signs [X] Documentation [X] Medication orders and management Hospitalist Physical - Constitutional Vitals: Temp Pulse Resp BP Pulse Ox 99.5 F 120 H 20 107/65 95 07/13/20 03:43 07/13/20 06:00 07/13/20 06:00 07/13/20 06:00 07/13/20 06:00 HEART Score - HEART Score Troponin: Troponin T < 0.010 ng/mL (0.00-0.029) 06/17/20 12:33 Results - Labs CBC & Chem 7: 07/12/20 03:40 07/12/20 03:40 Labs: Laboratory Last Values WBC 24.3 K/mm3 (4.5-11.0) H 07/12/20 03:40 RBC 2.83 M/mm3 (3.65-5.03) L 07/12/20 03:40 Hgb 8.0 gm/dl (11.8-15.2) L 07/12/20 03:40 Hct 24.9 % (35.5-45.6) L 07/12/20 03:40 MCV 88 fl (84-94) 07/12/20 03:40 MCH 28 pg (28-32) 07/12/20 03:40 MCHC 32 % (32-34) 07/12/20 03:40 RDW 17.7 % (13.2-15.2) H 07/12/20 03:40 Plt Count 285 K/mm3 (140-440) 07/12/20 03:40 Lymph % (Auto) 5.6 % (13.4-35.0) L 07/12/20 03:40 [place] % (Auto) 7.4 % (0.0-7.3) H 07/12/20 03:40 Eos % (Auto) 2.8 % (0.0-4.3) 07/12/20 03:40 Baso % (Auto) 0.3 % (0.0-1.8) 07/12/20 03:40 Lymph # (Auto) 1.4 K/mm3 (1.2-5.4) 07/12/20 03:40 [place] # (Auto) 1.8 K/mm3 (0.0-0.8) H 07/12/20 03:40 Eos # (Auto) 0.7 K/mm3 (0.0-0.4) H 07/12/20 03:40 Baso # (Auto) 0.1 K/mm3 (0.0-0.1) 07/12/20 03:40 Add Manual Diff Complete 07/11/20 06:52 Total Counted 100 07/11/20 06:52 Seg Neutrophils % 83.9 % (40.0-70.0) H 07/12/20 03:40 Seg Neuts % (Manual) 65.0 % (40.0-70.0) 07/11/20 06:52 Band Neutrophils % 7.0 % 07/11/20 06:52 Lymphocytes % (Manual) 1.0 % (13.4-35.0) L 07/11/20 06:52 Reactive Lymphs % (Man) 1.0 % 06/23/20 04:00 Monocytes % (Manual) 11.0 % (0.0-7.3) H 07/11/20 06:52 Eosinophils % (Manual) 4.0 % (0.0-4.3) 07/11/20 06:52 Metamyelocytes % 12.0 % 07/11/20 06:52 Myelocytes % 2.0 % 07/10/20 03:55 Nucleated RBC % Not Reportable 07/11/20 06:52 Seg Neutrophils # 20.4 K/mm3 (1.8-7.7) H 07/12/20 03:40 Seg Neutrophils # Man 16.9 K/mm3 (1.8-7.7) H 07/11/20 06:52 Band Neutrophils # 1.8 K/mm3 07/11/20 06:52 Lymphocytes # (Manual) 0.3 K/mm3 (1.2-5.4) L 07/11/20 06:52 Abs React Lymphs (Man) 0.0 K/mm3 07/11/20 06:52 Monocytes # (Manual) 2.9 K/mm3 (0.0-0.8) H 07/11/20 06:52 Eosinophils # (Manual) 1.0 K/mm3 (0.0-0.4) H 07/11/20 06:52 Basophils # (Manual) 0.0 K/mm3 (0.0-0.1) 07/11/20 06:52 Metamyelocytes # 3.1 K/mm3 07/11/20 06:52 Myelocytes # 0.0 K/mm3 07/11/20 06:52 Promyelocytes # 0.0 K/mm3 07/11/20 06:52 Blast Cells # 0.0 K/mm3 07/11/20 06:52 Pathologist Review Not Reportable 06/26/20 05:47 WBC Morphology Not Reportable 07/11/20 06:52 Hypersegmented Neuts Not Reportable 07/11/20 06:52 Hyposegmented Neuts Not Reportable 07/11/20 06:52 Hypogranular Neuts Not Reportable 07/11/20 06:52 Smudge Cells Not Reportable 07/11/20 06:52 Toxic Granulation 1+ 07/11/20 06:52 Toxic Vacuolation Not Reportable 07/11/20 06:52 Dohle Bodies Not Reportable 07/11/20 06:52 Pelger-Huet Anomaly Not Reportable 07/11/20 06:52 Carlito Rods Not Reportable 07/11/20 06:52 Platelet Estimate Consistent w auto 07/11/20 06:52 Clumped Platelets Not Reportable 07/11/20 06:52 Plt Clumps, EDTA Not Reportable 07/11/20 06:52 Large Platelets Few 07/11/20 06:52 Giant Platelets Not Reportable 07/11/20 06:52 Platelet Satelliting Not Reportable 07/11/20 06:52 Plt Morphology Comment Not Reportable 07/11/20 06:52 RBC Morphology Not Reportable 07/11/20 06:52 Dimorphic RBCs Not Reportable 07/11/20 06:52 Polychromasia Not Reportable 07/11/20 06:52 Hypochromasia Not Reportable 07/11/20 06:52 Poikilocytosis Not Reportable 07/11/20 06:52 Anisocytosis 1+ 07/11/20 06:52 Microcytosis Not Reportable 07/11/20 06:52 Macrocytosis Not Reportable 07/11/20 06:52 Spherocytes Not Reportable 07/11/20 06:52 Pappenheimer Bodies Not Reportable 07/11/20 06:52 Sickle Cells Not Reportable 07/11/20 06:52 Target Cells Not Reportable 07/11/20 06:52 Tear Drop Cells Not Reportable 07/11/20 06:52 Ovalocytes Not Reportable 07/11/20 06:52 Stomatocytes Rare 07/10/20 03:55 Helmet Cells Not Reportable 07/11/20 06:52 Brothers-Tarnov Bodies Not Reportable 07/11/20 06:52 [place] Rings Not Reportable 07/11/20 06:52 Livier Cells Not Reportable 07/11/20 06:52 Bite Cells Not Reportable 07/11/20 06:52 Crenated Cell Not Reportable 07/11/20 06:52 Elliptocytes Not Reportable 07/11/20 06:52 Acanthocytes (Spur) Not Reportable 07/11/20 06:52 Rouleaux Not Reportable 07/11/20 06:52 Hemoglobin C Crystals Not Reportable 07/11/20 06:52 Schistocytes Not Reportable 07/11/20 06:52 Malaria parasites Not Reportable 07/11/20 06:52 Victoriano Bodies Not Reportable 07/11/20 06:52 Hem Pathologist Commnt No 07/11/20 06:52 PT 17.4 Sec. (12.2-14.9) H 06/26/20 05:47 INR 1.44 (0.87-1.13) H 06/26/20 05:47 APTT 28.5 Sec. (24.2-36.6) 06/26/20 05:47 D-Dimer 6608.00 ng/mlDDU (0-234) H 07/03/20 14:50 Heparin Anti-Xa Level < 0.10 U.I./ml (0.3-0.7) L 06/26/20 01:30 ABG pH 7.347 (7.320-7.450) 07/13/20 03:11 POC ABG pCO2 49.0 mmHg (32.0-48.0) H 07/13/20 03:11 ABG pCO2 56.4 mm Hg 07/05/20 04:30 POC ABG pO2 69.6 mmHg (83-108) L 07/13/20 03:11 ABG pO2 151.9 mm Hg (80.0-90.0) H 07/05/20 04:30 POC ABG HCO3 26.3 07/13/20 03:11 ABG HCO3 26.8 mmol/L (20.0-26.0) H 07/05/20 04:30 ABG O2 Saturation 98.7 % (95.0-99.0) 07/05/20 04:30 ABG O2 Content 5.0 (0.0-44) 07/04/20 05:20 POC ABG Base Excess 0.4 07/13/20 03:11 ABG Base Excess 0.1 mmol/L (-2.0-3.0) 07/05/20 04:30 ABG Hemoglobin 8.5 (12.0-17.5) L 07/13/20 03:11 ABG Oxyhemoglobin 90.5 (94-98) L 07/13/20 03:11 ABG Carboxyhemoglobin 1.7 % (0.0-5.0) 07/05/20 04:30 ABG Methemoglobin 0.1 (0.0-1.5) 07/13/20 03:11 ABG Sodium 133.6 mmol/L (136.0-145.0) L 07/13/20 03:11 ABG Potassium 5.1 mmol/L (3.40-4.50) H 07/13/20 03:11 ABG Chloride 100.0 mmol/L (98-107) 07/13/20 03:11 ABG Glucose 104 mg/dL (65-95) H 07/13/20 03:11 Oxyhemoglobin 96.5 % (95.0-99.0) 07/05/20 04:30 Carboxyhemoglobin 0.8 (0.5-1.5) 07/13/20 03:11 FiO2 60.0 07/13/20 03:11 Sodium 134 mmol/L (137-145) L 07/12/20 03:40 Potassium 4.8 mmol/L (3.6-5.0) 07/12/20 03:40 Chloride 95.5 mmol/L (98-107) L 07/12/20 03:40 Carbon Dioxide 27 mmol/L (22-30) 07/12/20 03:40 Anion Gap 16 mmol/L 07/12/20 03:40 BUN 79 mg/dL (9-20) H 07/12/20 03:40 Creatinine 3.7 mg/dL (0.8-1.3) H 07/12/20 03:40 Estimated GFR 20 ml/min 07/12/20 03:40 BUN/Creatinine Ratio 21 % 07/12/20 03:40 Glucose 127 mg/dL (75-100) H 07/12/20 03:40 POC Glucose 100 mg/dL (70-105) 07/13/20 05:34 Lactic Acid 1.10 mmol/L (0.7-2.0) 07/12/20 03:40 Calcium 7.8 mg/dL (8.4-10.2) L 07/12/20 03:40 Phosphorus 9.40 mg/dL (2.5-4.5) H 06/30/20 03:50 Magnesium 2.70 mg/dL (1.7-2.3) H 06/18/20 20:33 Ferritin 1171.0 ng/mL (30.0-300.0) H 07/03/20 14:50 Total Bilirubin 0.60 mg/dL (0.1-1.2) 07/05/20 08:21 Direct Bilirubin 0.5 mg/dL (0-0.2) H 07/05/20 08:21 Indirect Bilirubin 0.1 mg/dL 07/05/20 08:21 AST 75 units/L (5-40) H 07/05/20 08:21 ALT 86 units/L (7-56) H 07/05/20 08:21 Alkaline Phosphatase 107 units/L (35-129) 07/05/20 08:21 Lactate Dehydrogenase 525 units/L (91-180) H 07/03/20 14:50 Total Creatine Kinase 618 units/L (55-170) H 06/29/20 Unknown Troponin T < 0.010 ng/mL (0.00-0.029) 06/17/20 12:33 C-Reactive Protein 31.50 mg/dL (0.00-1.30) H 07/03/20 14:50 Total Protein 5.6 g/dL (6.3-8.2) L D 07/05/20 08:21 Albumin 1.9 g/dL (3.9-5) L 07/05/20 08:21 Albumin/Globulin Ratio 0.5 % 07/05/20 08:21 Triglycerides 246 mg/dL (2-149) H 07/12/20 04:00 Procalcitonin 8.39 ng/mL (<0.15) 07/12/20 03:40 Arterial Blood Glucose 104 mg/dL (65-95) H 07/13/20 03:11 Arterial Blood Ionized Calcium 4.3 mg/dL (4.6-5.3) L 07/13/20 03:11 Urine Color Yellow (Yellow) 06/17/20 15:57 Urine Turbidity Clear (Clear) 06/17/20 15:57 Urine pH 6.0 (5.0-7.0) 06/17/20 15:57 Ur Specific [place] 1.019 (1.003-1.030) 06/17/20 15:57 Urine Protein 30 mg/dl mg/dL (Negative) 06/17/20 15:57 Urine Glucose (UA) Neg mg/dL (Negative) 06/17/20 15:57 Urine Ketones Neg mg/dL (Negative) 06/17/20 15:57 Urine Blood Sm (Negative) 06/17/20 15:57 Urine Nitrite Neg (Negative) 06/17/20 15:57 Ur Reducing Substances Not Reportable 06/17/20 15:57 Urine Bilirubin Neg (Negative) 06/17/20 15:57 Urine Ictotest Not Reportable 06/17/20 15:57 Urine Urobilinogen < 2.0 mg/dL (<2.0) 06/17/20 15:57 Ur Leukocyte Esterase Neg (Negative) 06/17/20 15:57 Urine WBC (Auto) 1.0 /HPF (0.0-6.0) 06/17/20 15:57 Urine RBC (Auto) 2.0 /HPF (0.0-6.0) 06/17/20 15:57 Urine Mucus Few /HPF 06/17/20 15:57 Urine Creatinine 192.4 mg/dL (0.1-20.0) H 06/18/20 15:00 Urine Sodium 28 mmol/L 06/18/20 15:00 Urine Chloride 31.1 mmolL (110-250) L 06/18/20 15:00 Nasal Screen MRSA (PCR) Negative (Negative) 06/19/20 10:38 Vancomycin Trough 22.7 ug/mL (5.0-20.0) H 06/20/20 08:25 Coronavirus (PCR) Positive (Negative) A 07/03/20 10:10 Hepatitis A IgM Ab Non-reactive (NonReactive) 06/22/20 17:00 Hep Bs Antigen Non-reactive (Negative) 06/22/20 17:00 Hep B Core IgM Ab Non-reactive (NonReactive) 06/22/20 17:00 Hepatitis C Antibody Non-reactive (NonReactive) 06/22/20 17:00 SARS-CoV-2 IgG Ab Nonreactive (NonReactive) 07/04/20 05:20 Blood Type A POSITIVE 07/10/20 13:24 Antibody Screen Negative 07/10/20 13:24 Crossmatch See Detail 07/10/20 13:24 - Diagnostic Impressions Diagnostic Impressions: Echocardiogram 06/29/20 06:00 Transthoracic Echocardiogram Indication: A-fib BP: 105/47 HR: 99 Conclusions *The study is technically very difficult and limited due to poor acoustic windows. *Global left ventricular wall motion and contractility are within normal limits. *The estimated ejection fraction is 55-60%. *There is no pericardial effusion. Findings Procedure Info: The study quality is technically difficult. The study is technically limited due to poor acoustic windows. Left Ventricle: Global left ventricular wall motion and contractility are within normal limits. Global left ventricular systolic function is normal. The estimated ejection fraction is 55-60%. Left Atrium: The left atrium is not well visualized. Right Ventricle: The right ventricle is not well visualized. Right Atrium: The right atrium is not well visualized. Aortic Valve: The aortic valve is not well visualized. Mitral Valve: The mitral valve is not well visualized. Tricuspid Valve: The tricuspid valve is not well visualized. Pulmonic Valve: The pulmonic valve is not well visualized. Pericardium: There is no pericardial effusion. Venous: There is no change in the dimension of the inferior vena cava with respiration consistent with markedly increased right atrial pressure. [place]/IV: Voiding Method Incontinent Active Medications - Current Medications Current Medications: Generic Name Dose Route Start Last Admin Trade Name Freq PRN Reason Stop Dose Admin Acetaminophen 650 mg 06/17/20 14:17 07/03/20 09:16 Acetaminophen 325 Mg Tab PO 650 mg Q4H PRN Administration Pain MILD(1-3)/Fever >100.5/ROBERTS Amiodarone HCl 200 mg 07/08/20 12:30 07/12/20 21:34 Amiodarone 200 Mg Tab PO 200 mg BID CONNOR Administration Lipase/Protease/Amylase 1 each 06/19/20 12:15 Lipase 10,500/Protease 25,000/Amylase 43,750 (Units) Dr Kulkarni FEEDTUBE PRN PRN For Clogged Feeding Tube Ascorbic Acid 250 mg 06/17/20 22:00 07/12/20 21:34 Ascorbic Acid 250 Mg Tab PO 250 mg BID CONNOR Administration Cholecalciferol 1,000 unit 06/18/20 10:00 07/12/20 09:20 Cholecalciferol (Vit D3) 1000 Unit (25 Mcg) Tab PO 1,000 unit DAILY CONNOR Administration Dexamethasone 4 mg 07/12/20 10:00 07/12/20 09:20 Dexamethasone 4 Mg/Ml Vial IV 07/13/20 13:59 4 mg DAILY CONNOR Administration Dexamethasone 2 mg 07/14/20 10:00 Dexamethasone 4 Mg/Ml Vial IV 07/15/20 10:01 DAILY CONNOR Docusate Sodium 100 mg 06/23/20 15:00 07/12/20 21:35 Docusate Sodium 100 Mg/10 Ml Oral Liqd FEEDTUBE 100 mg BID CONNOR Administration Famotidine 20 mg 06/20/20 11:00 07/12/20 09:20 Famotidine 20 Mg/2 Ml Inj IV 20 mg DAILY CONNOR Administration Fentanyl 50 mcg 06/18/20 01:02 07/09/20 00:20 Fentanyl 100 Mcg/2 Ml Inj IV 50 mcg Q10MIN PRN Administration ANALGESIA Heparin Sodium (Porcine) 5,000 unit 06/22/20 12:53 06/30/20 13:36 Heparin 10,000 Unit/1 Ml Vial IV 5,000 unit PAM PRN Administration hemodialysis Heparin Sodium (Porcine) 5,000 unit 07/03/20 22:00 07/13/20 06:15 Heparin 5,000 Unit/1 Ml Vial SUB-Q 5,000 unit Q8HR CONNOR Administration Hydrophilic Ointment 1 applic 06/17/20 22:52 07/12/20 20:22 Lip Therapy Vaseline TP 1 applic Q2HR PRN Administration Dry Lips Propofol 1,000 mg in 100 mls @ 3.402 mls/hr 06/18/20 01:00 07/13/20 02:46 Diprivan 10 Mg/Ml IV 10 mcg/kg/min TITR CONNOR 6.804 mls/hr Administration Protocol 5 MCG/KG/MIN Fentanyl Citrate 2,000 mcg in 100 mls @ 5.67 mls/hr 06/18/20 02:00 07/13/20 06:14 Fentanyl Drip Premix IV 3 mcg/kg/hr TITR CONNOR 17.01 mls/hr Administration Protocol 1 MCG/KG/HR Sodium Chloride 500 mls @ 1 mls/hr 06/18/20 09:38 06/19/20 21:37 Nacl 0.9% 500 Ml IV 0 mls/hr DIRECT PRN Infusion ARTERIAL LINE FLUSH Norepinephrine 4 mg in 250 mls @ 7.5 mls/hr 07/08/20 02:06 07/12/20 09:40 Levophed Drip 4 Mg/Ns 250 Ml IV 0 mcg/min TITR CONNOR 0 mls/hr Titration Protocol 2 MCG/MIN Vasopressin 20 unit/ Sodium 101 mls @ 9.09 mls/hr 07/11/20 11:00 07/13/20 02:36 Chloride IV 0.03 units/min TITR CONNOR 9.09 mls/hr Titration Protocol 0.03 UNITS/MIN Sodium Chloride 100 mls @ 999 mls/hr 07/12/20 10:00 Nacl 0.9% IV PAM PRN Hypotension Insulin Human Regular 0 units 06/18/20 12:00 07/13/20 06:04 Insulin Regular, Human 100 Units/1 Ml SUB-Q Not Given Q6HR [facility] Protocol Multi-Ingred Cream/Lotion/Oil/Oint 1 applic 06/17/20 22:52 07/12/20 20:22 Mineral Oil/Petrolatum, White Ophth Oint 3.5 Gm OU 1 applic Q4HR PRN Administration Dry Eye(s) Ondansetron HCl 4 mg 06/17/20 14:17 Ondansetron 4 Mg/2 Ml Inj IV Q8H PRN Nausea And Vomiting Polyethylene Glycol 17 gm 06/23/20 15:00 07/12/20 09:20 Polyethylene Glycol 3350 17 Gm Powder PO 17 gm QDAY CONNOR Administration Quetiapine Fumarate 200 mg 06/28/20 13:00 07/12/20 21:34 Quetiapine 200 Mg Tab PO 200 mg BID CONNOR Administration Simple Syrup 15 ml 06/19/20 12:15 Simple Syrup 15 Ml FEEDTUBE PRN PRN Hypoglycemia Simple Syrup 30 ml 06/19/20 12:15 Simple Syrup 15 Ml FEEDTUBE PRN PRN Hypoglycemia Sodium Bicarbonate 325 mg 06/19/20 12:15 07/11/20 20:00 Sodium Bicarbonate 325 Mg Tab FEEDTUBE 325 mg PRN PRN Administration For Clogged Feeding Tube Sodium Bicarbonate 650 mg 07/04/20 10:00 07/12/20 20:20 Sodium Bicarbonate 650 Mg Tab PO 650 mg TID CONNOR Administration Sodium Chloride 10 ml 06/17/20 22:00 07/12/20 21:35 Sodium Chloride 0.9% 10 Ml Flush Syringe IV 10 ml BID CONNOR Administration Sodium Chloride 10 ml 06/17/20 14:17 Sodium Chloride 0.9% 10 Ml Flush Syringe IV PRN PRN LINE FLUSH Sodium Polystyrene Sulfonate 15 gm 07/03/20 11:19 07/05/20 10:36 Sodium Polystyrene 15 Gm/60 Ml Oral Liqd PO 15 gm Q6HR PRN Administration Hyperkalemia Zinc Sulfate 220 mg 06/17/20 22:00 07/12/20 21:35 Zinc Sulfate 220 Mg Cap PO 220 mg BID CONNOR Administration Nutrition/Malnutrition Assess - Dietary Evaluation Nutrition/Malnutrition Findings: Nutrition Notes Start: 06/18/20 10:28 Freq: Status: Active Protocol: Document 07/12/20 11:11 AL (Rec: 07/12/20 11:15 AL [id number]) Co-Sign 07/12/20 11:11 LP Nutrition Notes Initial or Follow up Reassessment Current Diagnosis Acute Kidney Injury,Sepsis, Respiratory Failure Other Pertinent Diagnosis COVID-19 (+), pneu Current Diet Nepro 1.8 at 40ml/hr Labs/Tests Na 134 BUN 79 Cr 3.7 Pertinent Medications Propofol at 6.8 ml/hr (180 kcal) Levophed Vasopressin Height 6 ft Weight 160 kg [place] Body Weight (kg) 80.90 BMI 47.8 Weight change and time frame Wt change of 30 kg noted. Pt on HD Weight Status Obese Subjective/Other Information FU for stable TF. Pt tolerating TF at 40 ml/hr ( goal rate). Percent of energy/protein needs met: 89%/48% Burn Absent Trauma Absent Current % PO Negligible Minimum of two criteria No physical signs of malnutrition #2 Nutrition Diagnosis Overweight/obesity Diagnosis Progress(for reassessment Continues documentation) #1 Nutrition Diagnosis Inadequate oral intake Diagnosis Progress(for reassessment Continues documentation) Is patient on ventilator? Yes Is Patient Ambulatory and/or Out of Bed No REE-([facility]-confined to bed) 2929.632 Kcal/Kg value to use for calculation 12 Approximate Energy Requirements Using 1920 kcal/Kg Calculation Used for Recommendations Kcal/kg Additional Notes Protein needs up to >2 g/kg IBW: 162 g Fluid needs: 1,000 ml + output Nutrition Intervention Change Diet Order: TF Nutrition Support: Nepro 1.8 at 50 ml/hr Flush 215 ml q4h Kcal 2,160 Protein (gm) 97 Fluid (mL) 872 Goal #1 Tolerate TF at goal rate Goal #2 Meet energy and protein needs as best as possible. Anticipated Discharge Needs: Unable to determine at the time. Follow-Up By: 07/19/20 Additional Comments F/U for TF tolerance and vent status
[2020-07-11] MEDS: VASOPRESSIN 20 UNIT in SODIUM CHLORIDE 0.9% 100 ML IV SCH ×2 (11:36→22:23)
--- NOTE | 2020-07-11 11:44 | Progress Note ---
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 Kidney function worsened and patient developed hyperkalemia, refractory acidosis and worsening azotemia. Hemodialysis initiated on June 22. Hemodynamic status had improved and patient has been weaned off of vasopressors but is now back on Levophed. 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 Patient is on intermittent vasopressors to maintain MAP > 65mmHg . (3) Hyperkalemia Current Visit: Yes Status: Acute Plan to address problem: to be corrected with dialysis. cont 2g K renal diet (4) Metabolic acidosis Current Visit: Yes Status: Acute Plan to address problem: Acidosis corrected with dialysis. (5) Acute respiratory failure with hypoxia Current Visit: Yes Status: Acute Plan to address problem: Continue respiratory management by pulmonary (6) Pneumonia due to COVID-19 virus Current Visit: Yes Status: Acute Plan to address problem: IV Dexamethasone Supplemental oxygen/Respiratory support as needed Proning as tolerated Remdesevir contra-indicated due to Kidney failure Prophylactic anticoagulation Trend inflammatory markers to assess disease progression and prognosis Subjective Date of service: 07/11/20 Principal diagnosis: ARF; Septic Shock; COVID-19 PNA; Atrial fibrillation; Obesity Interval history: Patient was not examined today due to the COVID-19 status to 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 I reviewed multidisciplinary notes and discussed with staff and physicians as needed. Patient is sedated on propofol and fentanyl. He is on anticoagulation with intravenous heparin. Objective - Exam Narrative Exam: exam deferred d/t PPE preservation - Vital Signs Vital signs: Vital Signs - 12hr 07/10/20 07/10/20 07/11/20 23:45 23:46 00:00 Temperature 98.7 F Pulse Rate 121 H 122 H 102 H Pulse Rate [ 102 H From Monitor] Respiratory 21 20 26 H Rate Blood Pressure 101/58 101/58 94/56 O2 Sat by Pulse 98 98 98 Oximetry 07/11/20 07/11/20 07/11/20 00:15 00:30 00:45 Temperature Pulse Rate 102 H 113 H 114 H Pulse Rate [ From Monitor] Respiratory 19 24 24 Rate Blood Pressure 92/52 92/52 98/52 O2 Sat by Pulse 98 98 98 Oximetry 07/11/20 07/11/20 07/11/20 01:00 01:15 01:30 Temperature Pulse Rate 102 H 112 H 101 H Pulse Rate [ From Monitor] Respiratory 24 22 22 Rate Blood Pressure 98/52 104/53 104/53 O2 Sat by Pulse 98 98 98 Oximetry 07/11/20 07/11/20 07/11/20 01:46 02:00 02:16 Temperature Pulse Rate 115 H 120 H 121 H Pulse Rate [ From Monitor] Respiratory 26 H 19 19 Rate Blood Pressure 120/60 120/60 132/71 O2 Sat by Pulse 97 97 96 Oximetry 07/11/20 07/11/20 07/11/20 02:30 02:45 03:00 Temperature Pulse Rate 118 H 114 H 134 H Pulse Rate [ From Monitor] Respiratory 22 21 21 Rate Blood Pressure 123/70 113/65 132/71 O2 Sat by Pulse 95 95 95 Oximetry 07/11/20 07/11/20 07/11/20 03:15 03:30 03:38 Temperature 98.5 F Pulse Rate 121 H 108 H Pulse Rate [ From Monitor] Respiratory 18 21 Rate Blood Pressure 113/67 115/71 O2 Sat by Pulse 95 95 Oximetry 07/11/20 07/11/20 07/11/20 03:45 04:00 04:15 Temperature Pulse Rate 117 H 118 H 118 H Pulse Rate [ 118 H From Monitor] Respiratory 24 22 24 Rate Blood Pressure 115/64 115/64 128/62 O2 Sat by Pulse 96 96 95 Oximetry 07/11/20 07/11/20 07/11/20 04:30 04:45 05:00 Temperature Pulse Rate 121 H 110 H 116 H Pulse Rate [ From Monitor] Respiratory 18 16 17 Rate Blood Pressure 128/62 122/59 122/59 O2 Sat by Pulse 95 96 96 Oximetry 07/11/20 07/11/20 07/11/20 05:15 05:30 05:45 Temperature Pulse Rate 101 H 118 H 118 H Pulse Rate [ From Monitor] Respiratory 21 19 22 Rate Blood Pressure 107/65 119/66 114/64 O2 Sat by Pulse 96 96 96 Oximetry 07/11/20 07/11/20 07/11/20 06:00 06:15 06:30 Temperature Pulse Rate 114 H 109 H 118 H Pulse Rate [ From Monitor] Respiratory 17 19 18 Rate Blood Pressure 114/64 113/55 111/61 O2 Sat by Pulse 95 96 95 Oximetry 07/11/20 07/11/20 07/11/20 06:45 07:00 07:15 Temperature Pulse Rate 113 H 125 H 114 H Pulse Rate [ From Monitor] Respiratory 19 17 17 Rate Blood Pressure 111/67 111/67 128/62 O2 Sat by Pulse 94 95 94 Oximetry 07/11/20 07/11/20 07/11/20 07:30 07:45 08:00 Temperature Pulse Rate 111 H 126 H 118 H Pulse Rate [ 124 H From Monitor] Respiratory 19 20 20 Rate Blood Pressure 128/62 111/70 111/70 O2 Sat by Pulse 95 95 96 Oximetry 07/11/20 07/11/20 07/11/20 08:15 08:30 08:40 Temperature Pulse Rate 114 H 123 H 130 H Pulse Rate [ From Monitor] Respiratory 21 20 Rate Blood Pressure 113/57 113/57 112/53 O2 Sat by Pulse 96 96 95 Oximetry 07/11/20 07/11/20 07/11/20 08:45 09:00 09:15 Temperature Pulse Rate 134 H 114 H 112 H Pulse Rate [ From Monitor] Respiratory 21 18 32 H Rate Blood Pressure 109/62 109/62 106/52 O2 Sat by Pulse 96 95 93 Oximetry 07/11/20 07/11/20 07/11/20 09:30 09:46 10:00 Temperature Pulse Rate 113 H 130 H 117 H Pulse Rate [ From Monitor] Respiratory 22 23 20 Rate Blood Pressure 105/59 105/53 96/51 O2 Sat by Pulse 96 96 96 Oximetry 07/11/20 07/11/20 07/11/20 10:15 10:30 10:45 Temperature Pulse Rate 114 H 113 H 115 H Pulse Rate [ From Monitor] Respiratory 18 19 19 Rate Blood Pressure 88/43 91/51 83/46 O2 Sat by Pulse 95 96 94 Oximetry 07/11/20 11:00 Temperature Pulse Rate 133 H Pulse Rate [ From Monitor] Respiratory 16 Rate Blood Pressure 90/47 O2 Sat by Pulse 96 Oximetry - Lab 07/11/20 06:52 07/11/20 08:48 Most recent lab results ABG pH 7.377 (7.320-7.450) 07/11/20 04:08 ABG pCO2 56.4 mm Hg 02/23/21 04:30 ABG pO2 151.9 mm Hg (80.0-90.0) H 07/05/20 04:30 ABG HCO3 26.8 mmol/L (20.0-26.0) H 07/05/20 04:30 ABG O2 Saturation 98.7 % (95.0-99.0) 07/05/20 04:30 Calcium 7.6 mg/dL (8.4-10.2) L 07/11/20 08:48 Phosphorus 9.40 mg/dL (2.5-4.5) H 06/30/20 03:50 Magnesium 2.70 mg/dL (1.7-2.3) H 06/18/20 20:33 Urine Creatinine 192.4 mg/dL (0.1-20.0) H 06/18/20 15:00 Urine Sodium 28 mmol/L 06/18/20 15:00 Medications & Allergies - Medications Allergies/Adverse Reactions: Allergies No Known Allergies Allergy (Unverified 06/17/20 14:24) Home Medications: Home Medications Medication Instructions Recorded Confirmed Last Taken Type Losartan/Hydrochlorothiazide 1 each PO QDAY 06/19/20 06/19/20 Unknown History [Losartan-Hctz 100-25 mg Tab] amLODIPine [Norvasc] 5 mg PO DAILY 06/19/20 06/19/20 Unknown History Active Medications: Generic Name Dose Route Start Last Admin Trade Name Freq PRN Reason Stop Dose Admin Acetaminophen 650 mg 06/17/20 14:17 07/03/20 09:16 Acetaminophen 325 Mg Tab PO 650 mg Q4H PRN Administration Pain MILD(1-3)/Fever >100.5/ROBERTS Amiodarone HCl 200 mg 07/08/20 12:30 07/11/20 09:38 Amiodarone 200 Mg Tab PO 200 mg BID CONNOR Administration Lipase/Protease/Amylase 1 each 06/19/20 12:15 Lipase 10,500/Protease 25,000/Amylase 43,750 (Units) Dr Shad PADILLATPOLY PRN PRN For Clogged Feeding Tube Ascorbic Acid 250 mg 06/17/20 22:00 07/11/20 09:38 Ascorbic Acid 250 Mg Tab PO 250 mg BID CONNOR Administration Cholecalciferol 1,000 unit 06/18/20 10:00 07/11/20 09:38 Cholecalciferol (Vit D3) 1000 Unit (25 Mcg) Tab PO 1,000 unit DAILY CONNOR Administration Dexamethasone 6 mg 07/03/20 14:00 07/11/20 09:38 Dexamethasone 4 Mg/Ml Vial IV 07/13/20 13:59 6 mg DAILY CONNOR Administration Docusate Sodium 100 mg 06/23/20 15:00 07/11/20 09:38 Docusate Sodium 100 Mg/10 Ml Oral Liqd FEEDTUBE 100 mg BID CONNOR Administration Famotidine 20 mg 06/20/20 11:00 07/11/20 09:37 Famotidine 20 Mg/2 Ml Inj IV 20 mg DAILY CONNOR Administration Fentanyl 50 mcg 06/18/20 01:02 07/09/20 00:20 Fentanyl 100 Mcg/2 Ml Inj IV 50 mcg Q10MIN PRN Administration ANALGESIA Heparin Sodium (Porcine) 5,000 unit 06/22/20 12:53 06/30/20 13:36 Heparin 10,000 Unit/1 Ml Vial IV 5,000 unit PAM PRN Administration hemodialysis Heparin Sodium (Porcine) 5,000 unit 07/03/20 22:00 07/11/20 05:23 Heparin 5,000 Unit/1 Ml Vial SUB-Q 5,000 unit Q8HR CONNOR Administration Hydrophilic Ointment 1 applic 06/17/20 22:52 07/02/20 20:45 Lip Therapy Vaseline TP 1 applic Q2HR PRN Administration Dry Lips Propofol 1,000 mg in 100 mls @ 3.402 mls/hr 06/18/20 01:00 07/10/20 21:47 Diprivan 10 Mg/Ml IV 10 mcg/kg/min TITR CONNOR 6.804 mls/hr Administration Protocol 5 MCG/KG/MIN Fentanyl Citrate 2,000 mcg in 100 mls @ 5.67 mls/hr 06/18/20 02:00 07/11/20 09:38 Fentanyl Drip Premix IV 3 mcg/kg/hr TITR CONNOR 17.01 mls/hr Administration Protocol 1 MCG/KG/HR Sodium Chloride 500 mls @ 1 mls/hr 06/18/20 09:38 06/19/20 21:37 Nacl 0.9% 500 Ml IV 0 mls/hr DIRECT PRN Infusion ARTERIAL LINE FLUSH Norepinephrine 4 mg in 250 mls @ 7.5 mls/hr 07/08/20 02:06 07/11/20 11:42 Levophed Drip 4 Mg/Ns 250 Ml IV 6 mcg/min TITR CONNOR 22.5 mls/hr Titration Protocol 2 MCG/MIN Sodium Chloride 100 mls @ 999 mls/hr 07/08/20 12:19 Nacl 0.9% IV PAM PRN Hypotension Vasopressin 20 unit/ Sodium 101 mls @ 9.09 mls/hr 07/11/20 11:00 07/11/20 11:36 Chloride IV 0.03 units/min TITR CONNOR 9.09 mls/hr Administration Protocol 0.03 UNITS/MIN Insulin Human Regular 0 units 06/18/20 12:00 07/11/20 05:24 Insulin Regular, Human 100 Units/1 Ml SUB-Q Not Given Q6HR CONNOR Protocol Multi-Ingred Cream/Lotion/Oil/Oint 1 applic 06/17/20 22:52 Mineral Oil/Petrolatum, White Ophth Oint 3.5 Gm OU Q4HR PRN Dry Eye(s) Ondansetron HCl 4 mg 06/17/20 14:17 Ondansetron 4 Mg/2 Ml Inj IV Q8H PRN Nausea And Vomiting Polyethylene Glycol 17 gm 06/23/20 15:00 07/11/20 09:40 Polyethylene Glycol 3350 17 Gm Powder PO 17 gm QDAY CONNOR Administration Quetiapine Fumarate 200 mg 06/28/20 13:00 07/11/20 09:38 Quetiapine 200 Mg Tab PO 200 mg BID CONNOR Administration Simple Syrup 15 ml 06/19/20 12:15 Simple Syrup 15 Ml FEEDTUBE PRN PRN Hypoglycemia Simple Syrup 30 ml 06/19/20 12:15 Simple Syrup 15 Ml FEEDTUBE PRN PRN Hypoglycemia Sodium Bicarbonate 325 mg 06/19/20 12:15 Sodium Bicarbonate 325 Mg Tab FEEDTUBE PRN PRN For Clogged Feeding Tube Sodium Bicarbonate 650 mg 07/04/20 10:00 07/11/20 07:41 Sodium Bicarbonate 650 Mg Tab PO 650 mg TID CONNOR Administration Sodium Chloride 10 ml 06/17/20 22:00 07/10/20 21:46 Sodium Chloride 0.9% 10 Ml Flush Syringe IV 10 ml BID CONNOR Administration Sodium Chloride 10 ml 06/17/20 14:17 Sodium Chloride 0.9% 10 Ml Flush Syringe IV PRN PRN LINE FLUSH Sodium Polystyrene Sulfonate 15 gm 07/03/20 11:19 07/05/20 10:36 Sodium Polystyrene 15 Gm/60 Ml Oral Liqd PO 15 gm Q6HR PRN Administration Hyperkalemia Zinc Sulfate 220 mg 06/17/20 22:00 07/11/20 09:38 Zinc Sulfate 220 Mg Cap PO 220 mg BID CONNOR Administration
--- NOTE | 2020-07-11 11:57 | Progress Note ---
Assessment and Plan tele reviewed - currently in AFib/AFlutter HR 120s. pt continues to intermittently require vasopressors. Cont amio. The patient has been seen in conjunction with Dr. Chavis who agrees with the assessment and plan of care. - Patient Problems (1) Acute respiratory failure with hypoxia Current Visit: Yes Status: Acute (2) Pneumonia due to COVID-19 virus Current Visit: Yes Status: Acute (3) Sepsis Current Visit: Yes Status: Acute Qualifiers: Severe sepsis acute organ dysfunction type: acute respiratory failure Severe sepsis shock status: with septic shock (4) Atrial fibrillation with rapid ventricular response Current Visit: Yes Status: Acute (5) Acute renal failure Current Visit: Yes Status: Acute (6) Elevated LFTs Current Visit: Yes Status: Acute (7) Anemia Current Visit: Yes Status: Acute Subjective Date of service: 07/11/20 Principal diagnosis: ARF; Septic Shock; COVID-19 PNA; Atrial fibrillation; Obesity Interval history: pt remains intubated, sedated. intermittently requiring vasopressor support. tele reviewed - currently in AFib/AFlutter HR 120s. Objective Last Vital Signs Temp 98.5 F 07/11/20 03:38 Pulse 133 H 07/11/20 11:00 Resp 16 07/11/20 11:00 BP 90/47 07/11/20 11:00 Pulse Ox 96 07/11/20 11:00 - Physical Examination General: Other (intubated, lethargic) Neck: Positive: neck supple Cardiac: Positive: irregularly irregular, S1/S2, Tachycardia Lungs: Positive: Decreased Breath Sounds, Oxygen, Ventilated Respirations Neuro: Positive: Other (intubated, lethargic) Abdomen: Positive: Soft Skin: Negative: Rash, Wound Extremities: Present: upper extr. pulses, lower extr. pulses, +1 Edema - Labs and Meds CBC 07/11/20 Range/Units 06:52 WBC 26.0 H (4.5-11.0) K/mm3 RBC 2.91 L (3.65-5.03) M/mm3 Hgb 8.2 L (11.8-15.2) gm/dl Hct 24.8 L (35.5-45.6) % Plt Count 268 (140-440) K/mm3 Comprehensive Metabolic Panel 07/11/20 07/11/20 Range/Units 06:52 08:48 Sodium 133 L 134 L (137-145) mmol/L Potassium TNR 5.3 H Chloride 93.5 L 94.8 L (98-107) mmol/L Carbon Dioxide 24 27 (22-30) mmol/L BUN 101 H 99 H (9-20) mg/dL Creatinine 4.5 H 4.6 H (0.8-1.3) mg/dL Glucose 100 102 H (75-100) mg/dL Calcium 7.8 L 7.6 L (8.4-10.2) mg/dL - Imaging and Cardiology EKG: report reviewed, image reviewed Echo: report reviewed (TDS, EF 55-60%. ) - Telemetry EKG Rhythm: Atrial Fibrillation - EKG Sinus rhythms and dysrhythmias: sinus tachycardia - Allied health notes Allied health notes reviewed: nursing
[2020-07-11] MEDS: EPOETIN ALFA-EPBX 10,000 UNIT/1 ML VIAL IV PRN (12:44)
--- NOTE | 2020-07-11 14:18 | Progress Note ---
Assessment and Plan Acute hypoxemic respiratory failure due to COVID-19 Severe COVID infection Severe Sepsis with shock Bilateral pneumonia Acute kidney injury (GIRISH) with acute tubular necrosis (ATN) Elevated liver enzymes Obesity (Discussed care with his family extensively over the phone and answered their questions; explained the gravity of his illness and the likely need for a tracheostomy if he shows improvement) - taper off dexamethasone - repeat procalcitonin in am (will trend rather than use absolute value) - repeat lactate in am - keep set TV at 500 mls (PIP's in high 20's) - follow clinically off AB's - nephrology input sincerely appreciated - continue care as below otherwise; - therapeutic anticoagulation remains on hold - continue HD/UF per nephrology prescription for toxin and volume clearance - keep peep at 14 - continue daily SAT's & SBT's as tolerated - continue tube feeds and advance to goal rate as tolerated - continue HD/UF per nephrology team for toxin and volume clearance - continue bowel regimen - rate control per cardiology team for afib RVR - Continue to wean supplemental oxygen for O2 sats >92% - Monitor blood pressure closely while optimizing sedation,wean vasopressor support for MAP > 65 mmHg - Critical care prone positioning - VAP bundle addressed, aspiration precautions HOB >40 - continue lung protective strategies, permissive hypercapnic acceptable. - continue bronchodilators with pulmonary hygiene per RT - wean per pulmonary driven protocols otherwise - accuchecks with glycemic control per SSI (While critically ill target blood glucose of 140-180 mg/dL; avoid hypoglycemia) - sedation prn for target RASS -1 to -2 - continue enteral nutritional support at goal rate as tolerated - s/p antibiotics per ID recommendations - Monitor liver function test ,avoid hepatotoxic agents - azotemia per nephrology rec's - Avoid nephrotoxins, renally dose all medications, conservative fluid manage ment - continue to avoid benzodiazepines, reduce the possibility of delirium, - prn analgesia per CPOT score - Maintenance of sleep-wake cycle, avoid delirium - Stress ulcer prophylaxis, Famotidine - PT/OT/ROM exercises - Mobility protocols for pressure ulcer prevention - CXR, ABG in am - CBC, CMP in am - Supportive transfusions to keep HgB >7g/dL - Monitor hemodynamics closely - continue other care per attending / other consultants COVID SPECIFIC INTERVENTIONS - continue steroids: Dexamethasone - continue with Remdesivir - monitor inflammatory markers - ferritin, D-dimer, CRP, LDH per facility protocol - continue anticoagulation per System Protocol based on d-dimer - continue contact and airborne isolation CONDITION: CRITICAL PROGNOSIS: GUARDED CODE STATUS: FULL CODE The high probability of a clinically significant, sudden or life-threatening deterioration of the [respiratory, cardiovascular, hematologic & neurologic] system(s) required my full and direct attention, intervention and personal management. The aggregate critical care time was [33] minutes without overlap. Time includes spent on; [x] Data Review and interpretation [x] Patient assessment and monitoring of vital signs [x] Documentation [x] Medication orders and management He was evaluated in the context of the global COVID-19 pandemic, which necessitated consideration that the patient might be at risk for infection with the virus that causes COVID-19. Institutional protocols and algorithms that pertain to the evaluation of patients at risk for COVID-19 are in a state of rapid change based on information released by regulatory bodies including the CDC and federal and state organizations. These policies and algorithms were followed during the patient's care in the ICU Please note that these policies, procedures and recommendations changed on a rapid basis. Subjective Date of service: 07/11/20 Principal diagnosis: ARF; Septic Shock; COVID-19 PNA; Atrial fibrillation; Obesity Interval history: Patient is seen today for: Ac hypoxemic respiratory failure; COVID-19; Severe Sepsis with shock; Zackery. pneumonia; GIRISH; Elevated liver enzymes; Obesity Seen and examined at bedside; 24hour events reviewed; nursing and respiratory care staff consulted; no adverse overnight events reported to me; resting in bed; remains on MVS; FiO2 at 70%; HD/UF ongoing with goal for 3.5Kg UF; on vasopressin and Levophed for BP support during dialysis; remains afebrile but leucocytosis noted Objective Vital Signs - 12hr 07/11/20 07/11/20 07/11/20 02:16 02:30 02:45 Temperature Pulse Rate 121 H 118 H 114 H Pulse Rate [ From Monitor] Respiratory 19 22 21 Rate Blood Pressure 132/71 123/70 113/65 O2 Sat by Pulse 96 95 95 Oximetry 07/11/20 07/11/20 07/11/20 03:00 03:15 03:30 Temperature Pulse Rate 134 H 121 H 108 H Pulse Rate [ From Monitor] Respiratory 21 18 21 Rate Blood Pressure 132/71 113/67 115/71 O2 Sat by Pulse 95 95 95 Oximetry 07/11/20 07/11/20 07/11/20 03:38 03:45 04:00 Temperature 98.5 F Pulse Rate 117 H 118 H Pulse Rate [ 118 H From Monitor] Respiratory 24 22 Rate Blood Pressure 115/64 115/64 O2 Sat by Pulse 96 96 Oximetry 07/11/20 07/11/20 07/11/20 04:15 04:30 04:45 Temperature Pulse Rate 118 H 121 H 110 H Pulse Rate [ From Monitor] Respiratory 24 18 16 Rate Blood Pressure 128/62 128/62 122/59 O2 Sat by Pulse 95 95 96 Oximetry 07/11/20 07/11/20 07/11/20 05:00 05:15 05:30 Temperature Pulse Rate 116 H 101 H 118 H Pulse Rate [ From Monitor] Respiratory 17 21 19 Rate Blood Pressure 122/59 107/65 119/66 O2 Sat by Pulse 96 96 96 Oximetry 07/11/20 07/11/20 07/11/20 05:45 06:00 06:15 Temperature Pulse Rate 118 H 114 H 109 H Pulse Rate [ From Monitor] Respiratory 22 17 19 Rate Blood Pressure 114/64 114/64 113/55 O2 Sat by Pulse 96 95 96 Oximetry 07/11/20 07/11/20 07/11/20 06:30 06:45 07:00 Temperature Pulse Rate 118 H 113 H 125 H Pulse Rate [ From Monitor] Respiratory 18 19 17 Rate Blood Pressure 111/61 111/67 111/67 O2 Sat by Pulse 95 94 95 Oximetry 07/11/20 07/11/20 07/11/20 07:15 07:30 07:45 Temperature Pulse Rate 114 H 111 H 126 H Pulse Rate [ From Monitor] Respiratory 17 19 20 Rate Blood Pressure 128/62 128/62 111/70 O2 Sat by Pulse 94 95 95 Oximetry 07/11/20 07/11/20 07/11/20 08:00 08:15 08:30 Temperature 98.4 F Pulse Rate 118 H 114 H 123 H Pulse Rate [ 124 H From Monitor] Respiratory 20 21 20 Rate Blood Pressure 111/70 113/57 113/57 O2 Sat by Pulse 96 96 96 Oximetry 07/11/20 07/11/20 07/11/20 08:40 08:45 09:00 Temperature Pulse Rate 130 H 134 H 114 H Pulse Rate [ From Monitor] Respiratory 21 18 Rate Blood Pressure 112/53 109/62 109/62 O2 Sat by Pulse 95 96 95 Oximetry 07/11/20 07/11/20 07/11/20 09:15 09:30 09:46 Temperature Pulse Rate 112 H 113 H 130 H Pulse Rate [ From Monitor] Respiratory 32 H 22 23 Rate Blood Pressure 106/52 105/59 105/53 O2 Sat by Pulse 93 96 96 Oximetry 07/11/20 07/11/20 07/11/20 10:00 10:15 10:30 Temperature Pulse Rate 117 H 114 H 113 H Pulse Rate [ From Monitor] Respiratory 20 18 19 Rate Blood Pressure 96/51 88/43 91/51 O2 Sat by Pulse 96 95 96 Oximetry 07/11/20 07/11/20 07/11/20 10:45 11:00 11:15 Temperature Pulse Rate 115 H 133 H 114 H Pulse Rate [ From Monitor] Respiratory 19 16 19 Rate Blood Pressure 83/46 90/47 100/49 O2 Sat by Pulse 94 96 95 Oximetry 07/11/20 07/11/20 07/11/20 11:30 11:46 12:00 Temperature 97.9 F Pulse Rate 115 H 119 H 106 H Pulse Rate [ 114 H From Monitor] Respiratory 18 17 18 Rate Blood Pressure 100/49 112/52 112/52 O2 Sat by Pulse 95 95 93 Oximetry 07/11/20 07/11/20 07/11/20 12:04 12:15 12:30 Temperature Pulse Rate 113 H 118 H 110 H Pulse Rate [ From Monitor] Respiratory 16 14 Rate Blood Pressure 100/49 122/64 122/64 O2 Sat by Pulse 93 96 95 Oximetry 07/11/20 07/11/20 12:45 13:00 Temperature Pulse Rate 101 H 104 H Pulse Rate [ From Monitor] Respiratory 15 15 Rate Blood Pressure 133/67 133/67 O2 Sat by Pulse 96 96 Oximetry Constitutional: appears uncomfortable, other (morbidly obese, atraumatic, normocephalic, mild resp distress, orally intubated) Eyes: non-icteric ENT: oropharynx moist, other (ETT 24 cm TROY + blood crusted lips) Neck: supple, no lymphadenopathy, other (Large , short neck) Effort: mildly labored Ascultation: Bilateral: diminished breath sounds, rhonchi Percussion: Bilateral: not dull Cardiovascular: irregular rhythm, other (S1,S2) Gastrointestinal: normoactive bowel sounds, non-distended (protuberant), other (OG Tube) Integumentary: rash, other (Femoral CVC, Newell catheter) Extremities: pink and warm, pulses normal, no ischemia or petechiae, edema (trace to 1+) Neurologic: non-focal exam (grossly), pupils equal and round, other (unable to assess, sedated) Psychiatric: other (unable to assess, sedated) CBC and BMP: 07/11/20 06:52 07/11/20 08:48 ABG, PT/INR, D-dimer: ABG ABG pH 7.377 (7.320-7.450) 07/11/20 04:08 POC ABG pCO2 43.3 mmHg (32.0-48.0) 07/11/20 04:08 ABG pCO2 56.4 mm Hg 07/05/20 04:30 POC ABG pO2 92.1 mmHg (83-108) 07/11/20 04:08 ABG pO2 151.9 mm Hg (80.0-90.0) H 07/05/20 04:30 POC ABG HCO3 24.9 07/11/20 04:08 ABG O2 Saturation 98.7 % (95.0-99.0) 07/05/20 04:30 PT/INR, D-dimer PT 17.4 Sec. (12.2-14.9) H 06/26/20 05:47 INR 1.44 (0.87-1.13) H 06/26/20 05:47 D-Dimer 6608.00 ng/mlDDU (0-234) H 07/03/20 14:50 Abnormal lab findings: Abnormal Labs 06/17/20 06/17/20 06/17/20 12:33 12:33 12:33 WBC 19.5 H RBC 5.18 H Hgb 15.5 H Hct MCHC RDW Lymph % (Auto) 3.8 L Lymph # (Auto) 0.7 L [place] # (Auto) Seg Neutrophils % Seg Neuts % (Manual) 99.0 H Lymphocytes % (Manual) 1.0 L Monocytes % (Manual) Nucleated RBC % Seg Neutrophils # 18.2 H Seg Neutrophils # Man 19.3 H Lymphocytes # (Manual) 0.2 L Monocytes # (Manual) Eosinophils # (Manual) PT 16.5 H INR 1.33 H APTT D-Dimer 1025.04 H Heparin Anti-Xa Level ABG pH POC ABG pCO2 POC ABG pO2 ABG pO2 ABG HCO3 ABG Hemoglobin ABG Oxyhemoglobin ABG Sodium ABG Potassium ABG Chloride ABG Glucose Carboxyhemoglobin Sodium 130 L Potassium 3.4 L Chloride 95.0 L Carbon Dioxide BUN 21 H Creatinine Glucose 137 H POC Glucose Lactic Acid Calcium 7.9 L Phosphorus Magnesium Ferritin Direct Bilirubin AST 84 H ALT 67 H Lactate Dehydrogenase 437 H Total Creatine Kinase 310 H C-Reactive Protein 27.90 H Total Protein Albumin 2.9 L Triglycerides Arterial Blood Glucose Arterial Blood Ionized Calcium Urine Creatinine Urine Chloride Vancomycin Trough Coronavirus (PCR) Crossmatch 06/17/20 06/17/20 06/17/20 12:33 12:33 14:48 WBC RBC Hgb Hct MCHC RDW Lymph % (Auto) Lymph # (Auto) [place] # (Auto) Seg Neutrophils % Seg Neuts % (Manual) Lymphocytes % (Manual) Monocytes % (Manual) Nucleated RBC % Seg Neutrophils # Seg Neutrophils # Man Lymphocytes # (Manual) Monocytes # (Manual) Eosinophils # (Manual) PT INR APTT D-Dimer Heparin Anti-Xa Level ABG pH POC ABG pCO2 POC ABG pO2 ABG pO2 ABG HCO3 ABG Hemoglobin ABG Oxyhemoglobin ABG Sodium ABG Potassium ABG Chloride ABG Glucose Carboxyhemoglobin Sodium Potassium Chloride Carbon Dioxide BUN Creatinine Glucose POC Glucose Lactic Acid 2.50 H* 2.20 H* Calcium Phosphorus Magnesium Ferritin 2297.0 H Direct Bilirubin AST ALT Lactate Dehydrogenase Total Creatine Kinase C-Reactive Protein Total Protein Albumin Triglycerides Arterial Blood Glucose Arterial Blood Ionized Calcium Urine Creatinine Urine Chloride Vancomycin Trough Coronavirus (PCR) Crossmatch 06/17/20 06/17/20 06/17/20 14:48 14:48 14:48 WBC RBC Hgb Hct MCHC RDW Lymph % (Auto) Lymph # (Auto) [place] # (Auto) Seg Neutrophils % Seg Neuts % (Manual) Lymphocytes % (Manual) Monocytes % (Manual) Nucleated RBC % Seg Neutrophils # Seg Neutrophils # Man Lymphocytes # (Manual) Monocytes # (Manual) Eosinophils # (Manual) PT INR APTT D-Dimer 939.89 H Heparin Anti-Xa Level ABG pH POC ABG pCO2 POC ABG pO2 ABG pO2 ABG HCO3 ABG Hemoglobin ABG Oxyhemoglobin ABG Sodium ABG Potassium ABG Chloride ABG Glucose Carboxyhemoglobin Sodium Potassium Chloride Carbon Dioxide BUN Creatinine Glucose 141 H POC Glucose Lactic Acid Calcium Phosphorus Magnesium Ferritin > 2000.0 H Direct Bilirubin AST ALT Lactate Dehydrogenase 503 H Total Creatine Kinase C-Reactive Protein 24.70 H Total Protein Albumin Triglycerides Arterial Blood Glucose Arterial Blood Ionized Calcium Urine Creatinine Urine Chloride Vancomycin Trough Coronavirus (PCR) Crossmatch 06/17/20 06/17/20 06/17/20 16:54 19:39 23:43 WBC RBC Hgb Hct MCHC RDW Lymph % (Auto) Lymph # (Auto) [place] # (Auto) Seg Neutrophils % Seg Neuts % (Manual) Lymphocytes % (Manual) Monocytes % (Manual) Nucleated RBC % Seg Neutrophils # Seg Neutrophils # Man Lymphocytes # (Manual) Monocytes # (Manual) Eosinophils # (Manual) PT INR APTT D-Dimer Heparin Anti-Xa Level ABG pH 7.571 H POC ABG pCO2 24.3 L POC ABG pO2 41.6 L ABG pO2 ABG HCO3 ABG Hemoglobin ABG Oxyhemoglobin 84.0 L ABG Sodium 131.0 L ABG Potassium ABG Chloride ABG Glucose 163 H Carboxyhemoglobin Sodium Potassium Chloride Carbon Dioxide BUN Creatinine Glucose POC Glucose 185 H Lactic Acid 2.10 H* Calcium Phosphorus Magnesium Ferritin Direct Bilirubin AST ALT Lactate Dehydrogenase Total Creatine Kinase C-Reactive Protein Total Protein Albumin Triglycerides Arterial Blood Glucose 163 H Arterial Blood Ionized Calcium 4.4 L Urine Creatinine Urine Chloride Vancomycin Trough Coronavirus (PCR) Crossmatch 06/18/20 06/18/20 06/18/20 00:17 00:23 03:55 WBC RBC Hgb Hct MCHC RDW Lymph % (Auto) Lymph # (Auto) [place] # (Auto) Seg Neutrophils % Seg Neuts % (Manual) Lymphocytes % (Manual) Monocytes % (Manual) Nucleated RBC % Seg Neutrophils # Seg Neutrophils # Man Lymphocytes # (Manual) Monocytes # (Manual) Eosinophils # (Manual) PT INR APTT D-Dimer Heparin Anti-Xa Level ABG pH POC ABG pCO2 POC ABG pO2 56.5 L 48.3 L ABG pO2 ABG HCO3 ABG Hemoglobin ABG Oxyhemoglobin 86.3 L 81.7 L ABG Sodium 132.9 L 131.0 L ABG Potassium ABG Chloride ABG Glucose 189 H 161 H Carboxyhemoglobin 0.4 L Sodium Potassium Chloride Carbon Dioxide BUN Creatinine Glucose POC Glucose Lactic Acid 3.80 H* Calcium Phosphorus Magnesium Ferritin Direct Bilirubin AST ALT Lactate Dehydrogenase Total Creatine Kinase C-Reactive Protein Total Protein Albumin Triglycerides Arterial Blood Glucose 189 H 161 H Arterial Blood Ionized Calcium 4.3 L 4.2 L Urine Creatinine Urine Chloride Vancomycin Trough Coronavirus (PCR) Crossmatch 06/18/20 06/18/20 06/18/20 05:39 05:39 05:39 WBC 26.2 H RBC Hgb Hct MCHC RDW Lymph % (Auto) Lymph # (Auto) [place] # (Auto) Seg Neutrophils % Seg Neuts % (Manual) 90.0 H Lymphocytes % (Manual) 5.0 L Monocytes % (Manual) Nucleated RBC % Seg Neutrophils # Seg Neutrophils # Man 23.6 H Lymphocytes # (Manual) Monocytes # (Manual) 1.3 H Eosinophils # (Manual) PT INR APTT D-Dimer Heparin Anti-Xa Level ABG pH POC ABG pCO2 POC ABG pO2 ABG pO2 ABG HCO3 ABG Hemoglobin ABG Oxyhemoglobin ABG Sodium ABG Potassium ABG Chloride ABG Glucose Carboxyhemoglobin Sodium 135 L Potassium Chloride 97.5 L Carbon Dioxide 21 L BUN 39 H Creatinine 1.7 H D Glucose 168 H POC Glucose Lactic Acid 3.40 H* Calcium 7.2 L Phosphorus Magnesium Ferritin Direct Bilirubin AST ALT Lactate Dehydrogenase Total Creatine Kinase C-Reactive Protein Total Protein Albumin Triglycerides Arterial Blood Glucose Arterial Blood Ionized Calcium Urine Creatinine Urine Chloride Vancomycin Trough Coronavirus (PCR) Crossmatch 06/18/20 06/18/20 06/18/20 07:24 09:00 10:10 WBC RBC Hgb Hct MCHC RDW Lymph % (Auto) Lymph # (Auto) [place] # (Auto) Seg Neutrophils % Seg Neuts % (Manual) Lymphocytes % (Manual) Monocytes % (Manual) Nucleated RBC % Seg Neutrophils # Seg Neutrophils # Man Lymphocytes # (Manual) Monocytes # (Manual) Eosinophils # (Manual) PT INR APTT D-Dimer Heparin Anti-Xa Level ABG pH POC ABG pCO2 POC ABG pO2 ABG pO2 ABG HCO3 ABG Hemoglobin ABG Oxyhemoglobin ABG Sodium ABG Potassium ABG Chloride ABG Glucose Carboxyhemoglobin Sodium Potassium Chloride Carbon Dioxide BUN Creatinine Glucose POC Glucose Lactic Acid 2.90 H* 3.20 H* Calcium Phosphorus Magnesium Ferritin Direct Bilirubin AST ALT Lactate Dehydrogenase Total Creatine Kinase C-Reactive Protein Total Protein Albumin Triglycerides Arterial Blood Glucose Arterial Blood Ionized Calcium Urine Creatinine Urine Chloride Vancomycin Trough Coronavirus (PCR) Positive A Crossmatch 06/18/20 06/18/20 06/18/20 11:58 14:43 15:00 WBC RBC Hgb Hct MCHC RDW Lymph % (Auto) Lymph # (Auto) [place] # (Auto) Seg Neutrophils % Seg Neuts % (Manual) Lymphocytes % (Manual) Monocytes % (Manual) Nucleated RBC % Seg Neutrophils # Seg Neutrophils # Man Lymphocytes # (Manual) Monocytes # (Manual) Eosinophils # (Manual) PT INR APTT D-Dimer Heparin Anti-Xa Level ABG pH 7.303 L POC ABG pCO2 POC ABG pO2 82.3 L ABG pO2 ABG HCO3 ABG Hemoglobin ABG Oxyhemoglobin ABG Sodium 135.3 L ABG Potassium ABG Chloride ABG Glucose 215 H Carboxyhemoglobin 0.3 L Sodium Potassium Chloride Carbon Dioxide BUN Creatinine Glucose POC Glucose 209 H Lactic Acid Calcium Phosphorus Magnesium Ferritin Direct Bilirubin AST ALT Lactate Dehydrogenase Total Creatine Kinase C-Reactive Protein Total Protein Albumin Triglycerides Arterial Blood Glucose 215 H Arterial Blood Ionized Calcium 4.2 L Urine Creatinine 192.4 H Urine Chloride 31.1 L Vancomycin Trough Coronavirus (PCR) Crossmatch 06/18/20 06/18/20 06/18/20 17:16 19:44 20:33 WBC RBC Hgb Hct MCHC RDW Lymph % (Auto) Lymph # (Auto) [place] # (Auto) Seg Neutrophils % Seg Neuts % (Manual) Lymphocytes % (Manual) Monocytes % (Manual) Nucleated RBC % Seg Neutrophils # Seg Neutrophils # Man Lymphocytes # (Manual) Monocytes # (Manual) Eosinophils # (Manual) PT INR APTT D-Dimer Heparin Anti-Xa Level ABG pH POC ABG pCO2 POC ABG pO2 ABG pO2 ABG HCO3 ABG Hemoglobin ABG Oxyhemoglobin ABG Sodium ABG Potassium ABG Chloride ABG Glucose Carboxyhemoglobin Sodium Potassium Chloride Carbon Dioxide BUN Creatinine Glucose POC Glucose 182 H Lactic Acid 3.00 H* Calcium Phosphorus Magnesium 2.70 H Ferritin Direct Bilirubin AST ALT Lactate Dehydrogenase Total Creatine Kinase C-Reactive Protein Total Protein Albumin Triglycerides Arterial Blood Glucose Arterial Blood Ionized Calcium Urine Creatinine Urine Chloride Vancomycin Trough Coronavirus (PCR) Crossmatch 06/18/20 06/19/20 06/19/20 23:43 04:00 04:00 WBC 31.6 H RBC Hgb Hct MCHC RDW Lymph % (Auto) Lymph # (Auto) [place] # (Auto) Seg Neutrophils % Seg Neuts % (Manual) 98.0 H Lymphocytes % (Manual) 0.5 L Monocytes % (Manual) Nucleated RBC % Seg Neutrophils # Seg Neutrophils # Man 31.0 H Lymphocytes # (Manual) 0.2 L Monocytes # (Manual) Eosinophils # (Manual) PT INR APTT D-Dimer Heparin Anti-Xa Level ABG pH POC ABG pCO2 POC ABG pO2 ABG pO2 ABG HCO3 ABG Hemoglobin ABG Oxyhemoglobin ABG Sodium ABG Potassium ABG Chloride ABG Glucose Carboxyhemoglobin Sodium Potassium Chloride Carbon Dioxide BUN 56 H Creatinine 1.6 H Glucose 176 H POC Glucose 149 H Lactic Acid Calcium 7.0 L Phosphorus Magnesium Ferritin Direct Bilirubin AST 244 H ALT 159 H Lactate Dehydrogenase Total Creatine Kinase C-Reactive Protein Total Protein 4.9 L D Albumin 2.5 L Triglycerides Arterial Blood Glucose Arterial Blood Ionized Calcium Urine Creatinine Urine Chloride Vancomycin Trough Coronavirus (PCR) Crossmatch 06/19/20 06/19/20 06/19/20 04:00 05:44 11:42 WBC RBC Hgb Hct MCHC RDW Lymph % (Auto) Lymph # (Auto) [place] # (Auto) Seg Neutrophils % Seg Neuts % (Manual) Lymphocytes % (Manual) Monocytes % (Manual) Nucleated RBC % Seg Neutrophils # Seg Neutrophils # Man Lymphocytes # (Manual) Monocytes # (Manual) Eosinophils # (Manual) PT INR APTT D-Dimer Heparin Anti-Xa Level ABG pH 7.265 L POC ABG pCO2 51.8 H POC ABG pO2 65.1 L ABG pO2 ABG HCO3 ABG Hemoglobin ABG Oxyhemoglobin ABG Sodium ABG Potassium ABG Chloride ABG Glucose 184 H Carboxyhemoglobin Sodium Potassium Chloride Carbon Dioxide BUN Creatinine Glucose POC Glucose 156 H 191 H Lactic Acid Calcium Phosphorus Magnesium Ferritin Direct Bilirubin AST ALT Lactate Dehydrogenase Total Creatine Kinase C-Reactive Protein Total Protein Albumin Triglycerides Arterial Blood Glucose 184 H Arterial Blood Ionized Calcium 4.3 L Urine Creatinine Urine Chloride Vancomycin Trough Coronavirus (PCR) Crossmatch 06/19/20 06/19/20 06/19/20 12:30 17:16 18:36 WBC RBC Hgb Hct MCHC RDW Lymph % (Auto) Lymph # (Auto) [place] # (Auto) Seg Neutrophils % Seg Neuts % (Manual) Lymphocytes % (Manual) Monocytes % (Manual) Nucleated RBC % Seg Neutrophils # Seg Neutrophils # Man Lymphocytes # (Manual) Monocytes # (Manual) Eosinophils # (Manual) PT 16.4 H INR 1.32 H APTT D-Dimer Heparin Anti-Xa Level ABG pH 7.088 L POC ABG pCO2 78.1 H POC ABG pO2 208.3 H ABG pO2 ABG HCO3 ABG Hemoglobin ABG Oxyhemoglobin 98.3 H ABG Sodium ABG Potassium 5.0 H ABG Chloride ABG Glucose 182 H Carboxyhemoglobin 0.4 L Sodium Potassium Chloride Carbon Dioxide BUN Creatinine Glucose POC Glucose 154 H Lactic Acid Calcium Phosphorus Magnesium Ferritin Direct Bilirubin AST ALT Lactate Dehydrogenase Total Creatine Kinase C-Reactive Protein Total Protein Albumin Triglycerides Arterial Blood Glucose 182 H Arterial Blood Ionized Calcium 4.3 L Urine Creatinine Urine Chloride Vancomycin Trough Coronavirus (PCR) Crossmatch 06/19/20 06/20/20 06/20/20 23:32 03:00 05:19 WBC RBC Hgb Hct MCHC RDW Lymph % (Auto) Lymph # (Auto) [place] # (Auto) Seg Neutrophils % Seg Neuts % (Manual) Lymphocytes % (Manual) Monocytes % (Manual) Nucleated RBC % Seg Neutrophils # Seg Neutrophils # Man Lymphocytes # (Manual) Monocytes # (Manual) Eosinophils # (Manual) PT INR APTT D-Dimer Heparin Anti-Xa Level 0.77 H ABG pH POC ABG pCO2 POC ABG pO2 ABG pO2 ABG HCO3 ABG Hemoglobin ABG Oxyhemoglobin ABG Sodium ABG Potassium ABG Chloride ABG Glucose Carboxyhemoglobin Sodium Potassium Chloride Carbon Dioxide BUN Creatinine Glucose POC Glucose 201 H 190 H Lactic Acid Calcium Phosphorus Magnesium Ferritin Direct Bilirubin AST ALT Lactate Dehydrogenase Total Creatine Kinase C-Reactive Protein Total Protein Albumin Triglycerides Arterial Blood Glucose Arterial Blood Ionized Calcium Urine Creatinine Urine Chloride Vancomycin Trough Coronavirus (PCR) Crossmatch 06/20/20 06/20/20 06/20/20 08:25 08:25 11:36 WBC RBC Hgb Hct MCHC RDW Lymph % (Auto) Lymph # (Auto) [place] # (Auto) Seg Neutrophils % Seg Neuts % (Manual) Lymphocytes % (Manual) Monocytes % (Manual) Nucleated RBC % Seg Neutrophils # Seg Neutrophils # Man Lymphocytes # (Manual) Monocytes # (Manual) Eosinophils # (Manual) PT INR APTT D-Dimer Heparin Anti-Xa Level ABG pH POC ABG pCO2 POC ABG pO2 ABG pO2 ABG HCO3 ABG Hemoglobin ABG Oxyhemoglobin ABG Sodium ABG Potassium ABG Chloride ABG Glucose Carboxyhemoglobin Sodium 135 L Potassium 5.4 H Chloride 109.2 H Carbon Dioxide 19 L BUN 68 H Creatinine 2.5 H D Glucose 201 H POC Glucose 184 H Lactic Acid Calcium 5.5 L* D Phosphorus Magnesium Ferritin Direct Bilirubin AST 123 H ALT 86 H Lactate Dehydrogenase Total Creatine Kinase C-Reactive Protein Total Protein 4.6 L Albumin 1.5 L Triglycerides Arterial Blood Glucose Arterial Blood Ionized Calcium Urine Creatinine Urine Chloride Vancomycin Trough 22.7 H Coronavirus (PCR) Crossmatch 06/20/20 06/20/20 06/20/20 11:40 17:28 20:00 WBC RBC Hgb Hct MCHC RDW Lymph % (Auto) Lymph # (Auto) [place] # (Auto) Seg Neutrophils % Seg Neuts % (Manual) Lymphocytes % (Manual) Monocytes % (Manual) Nucleated RBC % Seg Neutrophils # Seg Neutrophils # Man Lymphocytes # (Manual) Monocytes # (Manual) Eosinophils # (Manual) PT INR APTT D-Dimer Heparin Anti-Xa Level 0.89 H ABG pH 7.099 L POC ABG pCO2 61.1 H POC ABG pO2 ABG pO2 ABG HCO3 ABG Hemoglobin ABG Oxyhemoglobin ABG Sodium ABG Potassium 5.0 H ABG Chloride 111.0 H ABG Glucose 200 H Carboxyhemoglobin 0.4 L Sodium Potassium Chloride Carbon Dioxide BUN Creatinine Glucose POC Glucose 165 H Lactic Acid Calcium Phosphorus Magnesium Ferritin Direct Bilirubin AST ALT Lactate Dehydrogenase Total Creatine Kinase C-Reactive Protein Total Protein Albumin Triglycerides Arterial Blood Glucose 200 H Arterial Blood Ionized Calcium 4.2 L Urine Creatinine Urine Chloride Vancomycin Trough Coronavirus (PCR) Crossmatch 06/20/20 06/21/20 06/21/20 23:29 05:00 05:20 WBC RBC Hgb Hct MCHC RDW Lymph % (Auto) Lymph # (Auto) [place] # (Auto) Seg Neutrophils % Seg Neuts % (Manual) Lymphocytes % (Manual) Monocytes % (Manual) Nucleated RBC % Seg Neutrophils # Seg Neutrophils # Man Lymphocytes # (Manual) Monocytes # (Manual) Eosinophils # (Manual) PT INR APTT D-Dimer Heparin Anti-Xa Level ABG pH POC ABG pCO2 POC ABG pO2 ABG pO2 ABG HCO3 ABG Hemoglobin ABG Oxyhemoglobin ABG Sodium ABG Potassium ABG Chloride ABG Glucose Carboxyhemoglobin Sodium Potassium Chloride 112.0 H Carbon Dioxide 20 L BUN 92 H Creatinine 3.9 H D Glucose 214 H POC Glucose 145 H 191 H Lactic Acid Calcium 6.5 L D Phosphorus Magnesium Ferritin Direct Bilirubin AST 98 H ALT 84 H Lactate Dehydrogenase Total Creatine Kinase C-Reactive Protein Total Protein 4.6 L Albumin 2.1 L Triglycerides 180 H Arterial Blood Glucose Arterial Blood Ionized Calcium Urine Creatinine Urine Chloride Vancomycin Trough Coronavirus (PCR) Crossmatch 06/21/20 06/21/20 06/21/20 08:56 11:12 12:43 WBC RBC Hgb Hct MCHC RDW Lymph % (Auto) Lymph # (Auto) [place] # (Auto) Seg Neutrophils % Seg Neuts % (Manual) Lymphocytes % (Manual) Monocytes % (Manual) Nucleated RBC % Seg Neutrophils # Seg Neutrophils # Man Lymphocytes # (Manual) Monocytes # (Manual) Eosinophils # (Manual) PT INR APTT D-Dimer Heparin Anti-Xa Level 0.28 L ABG pH 7.184 L POC ABG pCO2 48.3 H POC ABG pO2 172.1 H ABG pO2 ABG HCO3 ABG Hemoglobin ABG Oxyhemoglobin 98.7 H ABG Sodium ABG Potassium 4.9 H ABG Chloride 112.0 H ABG Glucose 196 H Carboxyhemoglobin 0.2 L Sodium Potassium Chloride Carbon Dioxide BUN Creatinine Glucose POC Glucose 177 H Lactic Acid Calcium Phosphorus Magnesium Ferritin Direct Bilirubin AST ALT Lactate Dehydrogenase Total Creatine Kinase C-Reactive Protein Total Protein Albumin Triglycerides Arterial Blood Glucose 196 H Arterial Blood Ionized Calcium 4.1 L Urine Creatinine Urine Chloride Vancomycin Trough Coronavirus (PCR) Crossmatch 06/21/20 06/21/20 06/22/20 16:31 Unknown 00:12 WBC RBC Hgb Hct MCHC RDW Lymph % (Auto) Lymph # (Auto) [place] # (Auto) Seg Neutrophils % Seg Neuts % (Manual) Lymphocytes % (Manual) Monocytes % (Manual) Nucleated RBC % Seg Neutrophils # Seg Neutrophils # Man Lymphocytes # (Manual) Monocytes # (Manual) Eosinophils # (Manual) PT INR APTT D-Dimer Heparin Anti-Xa Level 0.78 H ABG pH POC ABG pCO2 POC ABG pO2 ABG pO2 ABG HCO3 ABG Hemoglobin ABG Oxyhemoglobin ABG Sodium ABG Potassium ABG Chloride ABG Glucose Carboxyhemoglobin Sodium Potassium Chloride Carbon Dioxide BUN Creatinine Glucose POC Glucose 150 H 173 H Lactic Acid Calcium Phosphorus Magnesium Ferritin Direct Bilirubin AST ALT Lactate Dehydrogenase Total Creatine Kinase C-Reactive Protein Total Protein Albumin Triglycerides Arterial Blood Glucose Arterial Blood Ionized Calcium Urine Creatinine Urine Chloride Vancomycin Trough Coronavirus (PCR) Crossmatch 06/22/20 06/22/20 06/22/20 04:00 05:04 05:30 WBC 33.9 H RBC Hgb 11.7 L Hct 35.2 L MCHC RDW 15.8 H Lymph % (Auto) Lymph # (Auto) [place] # (Auto) Seg Neutrophils % Seg Neuts % (Manual) 93.0 H Lymphocytes % (Manual) 5.0 L Monocytes % (Manual) Nucleated RBC % Seg Neutrophils # Seg Neutrophils # Man 31.5 H Lymphocytes # (Manual) Monocytes # (Manual) Eosinophils # (Manual) PT INR APTT D-Dimer Heparin Anti-Xa Level ABG pH 7.169 L POC ABG pCO2 POC ABG pO2 ABG pO2 ABG HCO3 ABG Hemoglobin ABG Oxyhemoglobin ABG Sodium ABG Potassium 5.1 H ABG Chloride 112.0 H ABG Glucose 186 H Carboxyhemoglobin 0.3 L Sodium Potassium Chloride Carbon Dioxide BUN Creatinine Glucose POC Glucose 161 H Lactic Acid Calcium Phosphorus Magnesium Ferritin Direct Bilirubin AST ALT Lactate Dehydrogenase Total Creatine Kinase C-Reactive Protein Total Protein Albumin Triglycerides Arterial Blood Glucose 186 H Arterial Blood Ionized Calcium 4.1 L Urine Creatinine Urine Chloride Vancomycin Trough Coronavirus (PCR) Crossmatch 06/22/20 06/22/20 06/22/20 05:30 11:39 13:27 WBC RBC Hgb Hct MCHC RDW Lymph % (Auto) Lymph # (Auto) [place] # (Auto) Seg Neutrophils % Seg Neuts % (Manual) Lymphocytes % (Manual) Monocytes % (Manual) Nucleated RBC % Seg Neutrophils # Seg Neutrophils # Man Lymphocytes # (Manual) Monocytes # (Manual) Eosinophils # (Manual) PT INR APTT D-Dimer Heparin Anti-Xa Level ABG pH POC ABG pCO2 POC ABG pO2 ABG pO2 ABG HCO3 ABG Hemoglobin ABG Oxyhemoglobin ABG Sodium ABG Potassium ABG Chloride ABG Glucose Carboxyhemoglobin Sodium Potassium 5.7 H Chloride 111.3 H Carbon Dioxide 18 L BUN 112 H Creatinine 5.0 H Glucose 173 H POC Glucose 172 H 176 H Lactic Acid Calcium 6.7 L Phosphorus Magnesium Ferritin Direct Bilirubin AST ALT Lactate Dehydrogenase Total Creatine Kinase C-Reactive Protein Total Protein Albumin Triglycerides Arterial Blood Glucose Arterial Blood Ionized Calcium Urine Creatinine Urine Chloride Vancomycin Trough Coronavirus (PCR) Crossmatch 06/22/20 06/22/20 06/22/20 14:37 17:00 17:40 WBC RBC Hgb Hct MCHC RDW Lymph % (Auto) Lymph # (Auto) [place] # (Auto) Seg Neutrophils % Seg Neuts % (Manual) Lymphocytes % (Manual) Monocytes % (Manual) Nucleated RBC % Seg Neutrophils # Seg Neutrophils # Man Lymphocytes # (Manual) Monocytes # (Manual) Eosinophils # (Manual) PT INR APTT D-Dimer Heparin Anti-Xa Level 1.32 H ABG pH POC ABG pCO2 POC ABG pO2 ABG pO2 ABG HCO3 ABG Hemoglobin ABG Oxyhemoglobin ABG Sodium ABG Potassium ABG Chloride ABG Glucose Carboxyhemoglobin Sodium Potassium Chloride Carbon Dioxide BUN Creatinine Glucose POC Glucose 171 H Lactic Acid Calcium Phosphorus Magnesium Ferritin Direct Bilirubin AST ALT Lactate Dehydrogenase Total Creatine Kinase C-Reactive Protein 5.30 H Total Protein Albumin Triglycerides Arterial Blood Glucose Arterial Blood Ionized Calcium Urine Creatinine Urine Chloride Vancomycin Trough Coronavirus (PCR) Crossmatch 06/22/20 06/23/20 06/23/20 23:36 02:13 02:41 WBC RBC Hgb Hct MCHC RDW Lymph % (Auto) Lymph # (Auto) [place] # (Auto) Seg Neutrophils % Seg Neuts % (Manual) Lymphocytes % (Manual) Monocytes % (Manual) Nucleated RBC % Seg Neutrophils # Seg Neutrophils # Man Lymphocytes # (Manual) Monocytes # (Manual) Eosinophils # (Manual) PT INR APTT D-Dimer Heparin Anti-Xa Level 0.21 L ABG pH 7.318 L POC ABG pCO2 POC ABG pO2 157.5 H ABG pO2 ABG HCO3 ABG Hemoglobin ABG Oxyhemoglobin ABG Sodium 135.6 L ABG Potassium 4.6 H ABG Chloride 110.0 H ABG Glucose 169 H Carboxyhemoglobin Sodium Potassium Chloride Carbon Dioxide BUN Creatinine Glucose POC Glucose 155 H Lactic Acid Calcium Phosphorus Magnesium Ferritin Direct Bilirubin AST ALT Lactate Dehydrogenase Total Creatine Kinase C-Reactive Protein Total Protein Albumin Triglycerides Arterial Blood Glucose 169 H Arterial Blood Ionized Calcium Urine Creatinine Urine Chloride Vancomycin Trough Coronavirus (PCR) Crossmatch 06/23/20 06/23/20 06/23/20 04:00 04:00 05:24 WBC 27.4 H RBC Hgb 11.3 L Hct 33.8 L MCHC RDW Lymph % (Auto) Lymph # (Auto) [place] # (Auto) Seg Neutrophils % Seg Neuts % (Manual) 93.0 H Lymphocytes % (Manual) 1.0 L Monocytes % (Manual) Nucleated RBC % 1.0 H Seg Neutrophils # Seg Neutrophils # Man 25.5 H Lymphocytes # (Manual) 0.3 L Monocytes # (Manual) 1.1 H Eosinophils # (Manual) PT INR APTT D-Dimer Heparin Anti-Xa Level ABG pH POC ABG pCO2 POC ABG pO2 ABG pO2 ABG HCO3 ABG Hemoglobin ABG Oxyhemoglobin ABG Sodium ABG Potassium ABG Chloride ABG Glucose Carboxyhemoglobin Sodium Potassium Chloride 107.6 H Carbon Dioxide 20 L BUN 100 H Creatinine 4.7 H Glucose 168 H POC Glucose 151 H Lactic Acid Calcium Phosphorus Magnesium Ferritin Direct Bilirubin AST ALT Lactate Dehydrogenase Total Creatine Kinase C-Reactive Protein Total Protein Albumin Triglycerides Arterial Blood Glucose Arterial Blood Ionized Calcium Urine Creatinine Urine Chloride Vancomycin Trough Coronavirus (PCR) Crossmatch 06/23/20 06/23/20 06/23/20 11:30 17:18 23:50 WBC RBC Hgb Hct MCHC RDW Lymph % (Auto) Lymph # (Auto) [place] # (Auto) Seg Neutrophils % Seg Neuts % (Manual) Lymphocytes % (Manual) Monocytes % (Manual) Nucleated RBC % Seg Neutrophils # Seg Neutrophils # Man Lymphocytes # (Manual) Monocytes # (Manual) Eosinophils # (Manual) PT INR APTT D-Dimer Heparin Anti-Xa Level ABG pH POC ABG pCO2 POC ABG pO2 ABG pO2 ABG HCO3 ABG Hemoglobin ABG Oxyhemoglobin ABG Sodium ABG Potassium ABG Chloride ABG Glucose Carboxyhemoglobin Sodium Potassium Chloride Carbon Dioxide BUN Creatinine Glucose POC Glucose 157 H 156 H 162 H Lactic Acid Calcium Phosphorus Magnesium Ferritin Direct Bilirubin AST ALT Lactate Dehydrogenase Total Creatine Kinase C-Reactive Protein Total Protein Albumin Triglycerides Arterial Blood Glucose Arterial Blood Ionized Calcium Urine Creatinine Urine Chloride Vancomycin Trough Coronavirus (PCR) Crossmatch 06/24/20 06/24/20 06/24/20 04:41 05:57 06:30 WBC 34.3 H RBC Hgb 10.9 L Hct 32.6 L MCHC RDW Lymph % (Auto) 2.0 L Lymph # (Auto) 0.7 L [place] # (Auto) 1.2 H Seg Neutrophils % Seg Neuts % (Manual) 96.0 H Lymphocytes % (Manual) 3.0 L Monocytes % (Manual) Nucleated RBC % Seg Neutrophils # 32.3 H Seg Neutrophils # Man 32.9 H Lymphocytes # (Manual) 1.0 L Monocytes # (Manual) Eosinophils # (Manual) PT INR APTT D-Dimer Heparin Anti-Xa Level ABG pH POC ABG pCO2 POC ABG pO2 71.1 L ABG pO2 ABG HCO3 ABG Hemoglobin ABG Oxyhemoglobin 92.4 L ABG Sodium 115.6 L ABG Potassium ABG Chloride ABG Glucose 159 H Carboxyhemoglobin Sodium Potassium Chloride Carbon Dioxide BUN Creatinine Glucose POC Glucose 143 H Lactic Acid Calcium Phosphorus Magnesium Ferritin Direct Bilirubin AST ALT Lactate Dehydrogenase Total Creatine Kinase C-Reactive Protein Total Protein Albumin Triglycerides Arterial Blood Glucose 159 H Arterial Blood Ionized Calcium 4.2 L Urine Creatinine Urine Chloride Vancomycin Trough Coronavirus (PCR) Crossmatch 06/24/20 06/24/20 06/24/20 07:03 09:37 11:56 WBC RBC Hgb Hct MCHC RDW Lymph % (Auto) Lymph # (Auto) [place] # (Auto) Seg Neutrophils % Seg Neuts % (Manual) Lymphocytes % (Manual) Monocytes % (Manual) Nucleated RBC % Seg Neutrophils # Seg Neutrophils # Man Lymphocytes # (Manual) Monocytes # (Manual) Eosinophils # (Manual) PT INR APTT D-Dimer Heparin Anti-Xa Level 0.26 L ABG pH POC ABG pCO2 POC ABG pO2 ABG pO2 ABG HCO3 ABG Hemoglobin ABG Oxyhemoglobin ABG Sodium ABG Potassium ABG Chloride ABG Glucose Carboxyhemoglobin Sodium Potassium 5.1 H Chloride Carbon Dioxide BUN 103 H Creatinine 5.0 H Glucose 163 H POC Glucose 149 H Lactic Acid Calcium 7.6 L Phosphorus Magnesium Ferritin Direct Bilirubin AST ALT Lactate Dehydrogenase Total Creatine Kinase C-Reactive Protein Total Protein Albumin Triglycerides Arterial Blood Glucose Arterial Blood Ionized Calcium Urine Creatinine Urine Chloride Vancomycin Trough Coronavirus (PCR) Crossmatch 06/24/20 06/25/20 06/25/20 18:09 01:05 03:00 WBC RBC Hgb 10.6 L Hct 32.1 L MCHC RDW Lymph % (Auto) Lymph # (Auto) [place] # (Auto) Seg Neutrophils % Seg Neuts % (Manual) Lymphocytes % (Manual) Monocytes % (Manual) Nucleated RBC % Seg Neutrophils # Seg Neutrophils # Man Lymphocytes # (Manual) Monocytes # (Manual) Eosinophils # (Manual) PT INR APTT D-Dimer Heparin Anti-Xa Level ABG pH POC ABG pCO2 POC ABG pO2 ABG pO2 ABG HCO3 ABG Hemoglobin ABG Oxyhemoglobin ABG Sodium ABG Potassium ABG Chloride ABG Glucose Carboxyhemoglobin Sodium Potassium Chloride Carbon Dioxide BUN Creatinine Glucose POC Glucose 141 H 137 H Lactic Acid Calcium Phosphorus Magnesium Ferritin Direct Bilirubin AST ALT Lactate Dehydrogenase Total Creatine Kinase C-Reactive Protein Total Protein Albumin Triglycerides Arterial Blood Glucose Arterial Blood Ionized Calcium Urine Creatinine Urine Chloride Vancomycin Trough Coronavirus (PCR) Crossmatch 06/25/20 06/25/20 06/25/20 03:48 05:17 12:08 WBC RBC Hgb Hct MCHC RDW Lymph % (Auto) Lymph # (Auto) [place] # (Auto) Seg Neutrophils % Seg Neuts % (Manual) Lymphocytes % (Manual) Monocytes % (Manual) Nucleated RBC % Seg Neutrophils # Seg Neutrophils # Man Lymphocytes # (Manual) Monocytes # (Manual) Eosinophils # (Manual) PT INR APTT D-Dimer Heparin Anti-Xa Level ABG pH POC ABG pCO2 29.4 L POC ABG pO2 67.1 L ABG pO2 ABG HCO3 ABG Hemoglobin 11.5 L ABG Oxyhemoglobin ABG Sodium 124.1 L ABG Potassium 4.6 H ABG Chloride ABG Glucose 159 H Carboxyhemoglobin Sodium Potassium Chloride Carbon Dioxide BUN Creatinine Glucose POC Glucose 149 H 150 H Lactic Acid Calcium Phosphorus Magnesium Ferritin Direct Bilirubin AST ALT Lactate Dehydrogenase Total Creatine Kinase C-Reactive Protein Total Protein Albumin Triglycerides Arterial Blood Glucose 159 H Arterial Blood Ionized Calcium 4.2 L Urine Creatinine Urine Chloride Vancomycin Trough Coronavirus (PCR) Crossmatch 06/25/20 06/25/20 06/25/20 16:27 16:35 17:27 WBC RBC Hgb Hct MCHC RDW Lymph % (Auto) Lymph # (Auto) [place] # (Auto) Seg Neutrophils % Seg Neuts % (Manual) Lymphocytes % (Manual) Monocytes % (Manual) Nucleated RBC % Seg Neutrophils # Seg Neutrophils # Man Lymphocytes # (Manual) Monocytes # (Manual) Eosinophils # (Manual) PT INR APTT D-Dimer Heparin Anti-Xa Level < 0.10 L ABG pH POC ABG pCO2 POC ABG pO2 ABG pO2 ABG HCO3 ABG Hemoglobin ABG Oxyhemoglobin ABG Sodium ABG Potassium ABG Chloride ABG Glucose Carboxyhemoglobin Sodium Potassium Chloride Carbon Dioxide BUN Creatinine Glucose POC Glucose 143 H 156 H Lactic Acid Calcium Phosphorus Magnesium Ferritin Direct Bilirubin AST ALT Lactate Dehydrogenase Total Creatine Kinase C-Reactive Protein Total Protein Albumin Triglycerides Arterial Blood Glucose Arterial Blood Ionized Calcium Urine Creatinine Urine Chloride Vancomycin Trough Coronavirus (PCR) Crossmatch 06/25/20 06/25/20 06/25/20 20:00 20:55 23:10 WBC 32.7 H RBC 3.06 L Hgb 9.0 L 9.5 L Hct 26.7 L 28.6 L MCHC RDW Lymph % (Auto) Lymph # (Auto) [place] # (Auto) Seg Neutrophils % Seg Neuts % (Manual) Lymphocytes % (Manual) 2.0 L Monocytes % (Manual) Nucleated RBC % Seg Neutrophils # Seg Neutrophils # Man 30.7 H Lymphocytes # (Manual) 0.7 L Monocytes # (Manual) 1.3 H Eosinophils # (Manual) PT 17.7 H INR 1.47 H APTT 65.8 H* D-Dimer Heparin Anti-Xa Level ABG pH POC ABG pCO2 POC ABG pO2 ABG pO2 ABG HCO3 ABG Hemoglobin ABG Oxyhemoglobin ABG Sodium ABG Potassium ABG Chloride ABG Glucose Carboxyhemoglobin Sodium Potassium Chloride Carbon Dioxide BUN Creatinine Glucose POC Glucose Lactic Acid Calcium Phosphorus Magnesium Ferritin Direct Bilirubin AST ALT Lactate Dehydrogenase Total Creatine Kinase C-Reactive Protein Total Protein Albumin Triglycerides Arterial Blood Glucose Arterial Blood Ionized Calcium Urine Creatinine Urine Chloride Vancomycin Trough Coronavirus (PCR) Crossmatch 06/25/20 06/26/20 06/26/20 23:14 01:30 03:25 WBC RBC Hgb Hct MCHC RDW Lymph % (Auto) Lymph # (Auto) [place] # (Auto) Seg Neutrophils % Seg Neuts % (Manual) Lymphocytes % (Manual) Monocytes % (Manual) Nucleated RBC % Seg Neutrophils # Seg Neutrophils # Man Lymphocytes # (Manual) Monocytes # (Manual) Eosinophils # (Manual) PT INR APTT D-Dimer Heparin Anti-Xa Level < 0.10 L ABG pH POC ABG pCO2 POC ABG pO2 ABG pO2 ABG HCO3 ABG Hemoglobin 11.8 L ABG Oxyhemoglobin ABG Sodium 127.1 L ABG Potassium 5.4 H ABG Chloride ABG Glucose 155 H Carboxyhemoglobin 0.3 L Sodium Potassium Chloride Carbon Dioxide BUN Creatinine Glucose POC Glucose 148 H Lactic Acid Calcium Phosphorus Magnesium Ferritin Direct Bilirubin AST ALT Lactate Dehydrogenase Total Creatine Kinase C-Reactive Protein Total Protein Albumin Triglycerides Arterial Blood Glucose 155 H Arterial Blood Ionized Calcium 4.2 L Urine Creatinine Urine Chloride Vancomycin Trough Coronavirus (PCR) Crossmatch 06/26/20 06/26/20 06/26/20 03:59 05:14 05:47 WBC 36.5 H RBC 3.26 L Hgb 9.7 L Hct 28.2 L MCHC RDW Lymph % (Auto) Lymph # (Auto) [place] # (Auto) Seg Neutrophils % Seg Neuts % (Manual) 92.0 H Lymphocytes % (Manual) 4.0 L Monocytes % (Manual) Nucleated RBC % Seg Neutrophils # Seg Neutrophils # Man 33.6 H Lymphocytes # (Manual) Monocytes # (Manual) Eosinophils # (Manual) PT INR APTT D-Dimer Heparin Anti-Xa Level ABG pH POC ABG pCO2 POC ABG pO2 ABG pO2 ABG HCO3 ABG Hemoglobin ABG Oxyhemoglobin ABG Sodium ABG Potassium ABG Chloride ABG Glucose Carboxyhemoglobin Sodium Potassium 5.9 H Chloride Carbon Dioxide 20 L BUN 144 H Creatinine 6.4 H Glucose 149 H POC Glucose 128 H Lactic Acid Calcium 7.6 L Phosphorus Magnesium Ferritin Direct Bilirubin AST ALT Lactate Dehydrogenase Total Creatine Kinase C-Reactive Protein Total Protein Albumin Triglycerides Arterial Blood Glucose Arterial Blood Ionized Calcium Urine Creatinine Urine Chloride Vancomycin Trough Coronavirus (PCR) Crossmatch 06/26/20 06/26/20 06/26/20 05:47 12:47 17:42 WBC RBC Hgb Hct MCHC RDW Lymph % (Auto) Lymph # (Auto) [place] # (Auto) Seg Neutrophils % Seg Neuts % (Manual) Lymphocytes % (Manual) Monocytes % (Manual) Nucleated RBC % Seg Neutrophils # Seg Neutrophils # Man Lymphocytes # (Manual) Monocytes # (Manual) Eosinophils # (Manual) PT 17.4 H INR 1.44 H APTT D-Dimer Heparin Anti-Xa Level ABG pH POC ABG pCO2 POC ABG pO2 ABG pO2 ABG HCO3 ABG Hemoglobin ABG Oxyhemoglobin ABG Sodium ABG Potassium ABG Chloride ABG Glucose Carboxyhemoglobin Sodium Potassium Chloride Carbon Dioxide BUN Creatinine Glucose POC Glucose 124 H 127 H Lactic Acid Calcium Phosphorus Magnesium Ferritin Direct Bilirubin AST ALT Lactate Dehydrogenase Total Creatine Kinase C-Reactive Protein Total Protein Albumin Triglycerides Arterial Blood Glucose Arterial Blood Ionized Calcium Urine Creatinine Urine Chloride Vancomycin Trough Coronavirus (PCR) Crossmatch 0206/27/20 06/27/20 23:30 03:32 04:00 WBC RBC Hgb 8.7 L Hct 26.4 L MCHC RDW Lymph % (Auto) Lymph # (Auto) [place] # (Auto) Seg Neutrophils % Seg Neuts % (Manual) Lymphocytes % (Manual) Monocytes % (Manual) Nucleated RBC % Seg Neutrophils # Seg Neutrophils # Man Lymphocytes # (Manual) Monocytes # (Manual) Eosinophils # (Manual) PT INR APTT D-Dimer Heparin Anti-Xa Level ABG pH 7.298 L POC ABG pCO2 POC ABG pO2 ABG pO2 ABG HCO3 ABG Hemoglobin 9.6 L ABG Oxyhemoglobin ABG Sodium 124.4 L ABG Potassium 6.6 H ABG Chloride ABG Glucose 136 H Carboxyhemoglobin Sodium Potassium Chloride Carbon Dioxide BUN Creatinine Glucose POC Glucose 123 H Lactic Acid Calcium Phosphorus Magnesium Ferritin Direct Bilirubin AST ALT Lactate Dehydrogenase Total Creatine Kinase C-Reactive Protein Total Protein Albumin Triglycerides Arterial Blood Glucose 136 H Arterial Blood Ionized Calcium 4.1 L Urine Creatinine Urine Chloride Vancomycin Trough Coronavirus (PCR) Crossmatch 06/27/20 06/27/20 06/27/20 05:26 10:14 11:58 WBC RBC Hgb Hct MCHC RDW Lymph % (Auto) Lymph # (Auto) [place] # (Auto) Seg Neutrophils % Seg Neuts % (Manual) Lymphocytes % (Manual) Monocytes % (Manual) Nucleated RBC % Seg Neutrophils # Seg Neutrophils # Man Lymphocytes # (Manual) Monocytes # (Manual) Eosinophils # (Manual) PT INR APTT D-Dimer Heparin Anti-Xa Level ABG pH POC ABG pCO2 POC ABG pO2 ABG pO2 ABG HCO3 ABG Hemoglobin ABG Oxyhemoglobin ABG Sodium ABG Potassium ABG Chloride ABG Glucose Carboxyhemoglobin Sodium 136 L Potassium 7.0 H* Chloride 97.8 L Carbon Dioxide BUN 172 H Creatinine 7.4 H Glucose 129 H POC Glucose 124 H 115 H Lactic Acid Calcium 7.6 L Phosphorus Magnesium Ferritin Direct Bilirubin AST ALT Lactate Dehydrogenase Total Creatine Kinase C-Reactive Protein Total Protein Albumin Triglycerides Arterial Blood Glucose Arterial Blood Ionized Calcium Urine Creatinine Urine Chloride Vancomycin Trough Coronavirus (PCR) Crossmatch 06/27/20 06/27/20 06/27/20 17:32 18:30 23:24 WBC RBC Hgb Hct MCHC RDW Lymph % (Auto) Lymph # (Auto) [place] # (Auto) Seg Neutrophils % Seg Neuts % (Manual) Lymphocytes % (Manual) Monocytes % (Manual) Nucleated RBC % Seg Neutrophils # Seg Neutrophils # Man Lymphocytes # (Manual) Monocytes # (Manual) Eosinophils # (Manual) PT INR APTT D-Dimer Heparin Anti-Xa Level ABG pH POC ABG pCO2 POC ABG pO2 ABG pO2 ABG HCO3 ABG Hemoglobin ABG Oxyhemoglobin ABG Sodium ABG Potassium ABG Chloride ABG Glucose Carboxyhemoglobin Sodium Potassium 7.3 H* Chloride Carbon Dioxide BUN Creatinine Glucose POC Glucose 122 H 116 H Lactic Acid Calcium Phosphorus Magnesium Ferritin Direct Bilirubin AST ALT Lactate Dehydrogenase Total Creatine Kinase C-Reactive Protein Total Protein Albumin Triglycerides Arterial Blood Glucose Arterial Blood Ionized Calcium Urine Creatinine Urine Chloride Vancomycin Trough Coronavirus (PCR) Crossmatch 06/28/20 06/28/20 06/28/20 00:00 02:16 05:37 WBC RBC Hgb Hct MCHC RDW Lymph % (Auto) Lymph # (Auto) [place] # (Auto) Seg Neutrophils % Seg Neuts % (Manual) Lymphocytes % (Manual) Monocytes % (Manual) Nucleated RBC % Seg Neutrophils # Seg Neutrophils # Man Lymphocytes # (Manual) Monocytes # (Manual) Eosinophils # (Manual) PT INR APTT D-Dimer Heparin Anti-Xa Level ABG pH POC ABG pCO2 POC ABG pO2 79.0 L ABG pO2 ABG HCO3 ABG Hemoglobin 11.7 L ABG Oxyhemoglobin ABG Sodium 128.1 L ABG Potassium 6.6 H ABG Chloride ABG Glucose 124 H Carboxyhemoglobin Sodium Potassium 7.3 H* Chloride Carbon Dioxide BUN Creatinine Glucose POC Glucose 115 H Lactic Acid Calcium Phosphorus Magnesium Ferritin Direct Bilirubin AST ALT Lactate Dehydrogenase Total Creatine Kinase C-Reactive Protein Total Protein Albumin Triglycerides Arterial Blood Glucose 124 H Arterial Blood Ionized Calcium 4.2 L Urine Creatinine Urine Chloride Vancomycin Trough Coronavirus (PCR) Crossmatch 06/28/20 06/28/20 06/28/20 10:03 10:03 11:51 WBC 33.6 H RBC 3.03 L Hgb 8.9 L Hct 27.0 L MCHC RDW Lymph % (Auto) Lymph # (Auto) [place] # (Auto) Seg Neutrophils % Seg Neuts % (Manual) Lymphocytes % (Manual) Monocytes % (Manual) Nucleated RBC % Seg Neutrophils # Seg Neutrophils # Man Lymphocytes # (Manual) Monocytes # (Manual) Eosinophils # (Manual) PT INR APTT D-Dimer Heparin Anti-Xa Level ABG pH POC ABG pCO2 POC ABG pO2 ABG pO2 ABG HCO3 ABG Hemoglobin ABG Oxyhemoglobin ABG Sodium ABG Potassium ABG Chloride ABG Glucose Carboxyhemoglobin Sodium 136 L Potassium 6.5 H* Chloride Carbon Dioxide 20 L BUN 129 H Creatinine 5.8 H Glucose 113 H POC Glucose 107 H Lactic Acid Calcium 7.6 L Phosphorus Magnesium Ferritin Direct Bilirubin AST ALT Lactate Dehydrogenase Total Creatine Kinase C-Reactive Protein Total Protein Albumin Triglycerides Arterial Blood Glucose Arterial Blood Ionized Calcium Urine Creatinine Urine Chloride Vancomycin Trough Coronavirus (PCR) Crossmatch 06/28/20 06/28/20 06/29/20 17:45 Unknown 03:15 WBC RBC Hgb Hct MCHC RDW Lymph % (Auto) Lymph # (Auto) [place] # (Auto) Seg Neutrophils % Seg Neuts % (Manual) Lymphocytes % (Manual) Monocytes % (Manual) Nucleated RBC % Seg Neutrophils # Seg Neutrophils # Man Lymphocytes # (Manual) Monocytes # (Manual) Eosinophils # (Manual) PT INR APTT D-Dimer Heparin Anti-Xa Level ABG pH POC ABG pCO2 POC ABG pO2 ABG pO2 ABG HCO3 ABG Hemoglobin 7.8 L ABG Oxyhemoglobin ABG Sodium 127.4 L ABG Potassium 5.5 H ABG Chloride 97.0 L ABG Glucose 96 H Carboxyhemoglobin Sodium Potassium 5.4 H Chloride Carbon Dioxide BUN Creatinine Glucose POC Glucose 117 H Lactic Acid Calcium Phosphorus Magnesium Ferritin Direct Bilirubin AST ALT Lactate Dehydrogenase Total Creatine Kinase C-Reactive Protein Total Protein Albumin Triglycerides Arterial Blood Glucose 96 H Arterial Blood Ionized Calcium 4.0 L Urine Creatinine Urine Chloride Vancomycin Trough Coronavirus (PCR) Crossmatch 06/29/20 06/29/20 06/29/20 03:45 Unknown Unknown WBC RBC Hgb Hct MCHC RDW Lymph % (Auto) Lymph # (Auto) [place] # (Auto) Seg Neutrophils % Seg Neuts % (Manual) Lymphocytes % (Manual) Monocytes % (Manual) Nucleated RBC % Seg Neutrophils # Seg Neutrophils # Man Lymphocytes # (Manual) Monocytes # (Manual) Eosinophils # (Manual) PT INR APTT D-Dimer Heparin Anti-Xa Level ABG pH POC ABG pCO2 POC ABG pO2 ABG pO2 ABG HCO3 ABG Hemoglobin ABG Oxyhemoglobin ABG Sodium ABG Potassium ABG Chloride ABG Glucose Carboxyhemoglobin Sodium 135 L Potassium 6.0 H 6.1 H* Chloride 94.8 L Carbon Dioxide BUN 109 H 114 H Creatinine 5.5 H Glucose POC Glucose Lactic Acid Calcium 7.4 L Phosphorus Magnesium Ferritin Direct Bilirubin AST 47 H ALT Lactate Dehydrogenase Total Creatine Kinase C-Reactive Protein Total Protein 4.9 L Albumin 2.2 L Triglycerides Arterial Blood Glucose Arterial Blood Ionized Calcium Urine Creatinine Urine Chloride Vancomycin Trough Coronavirus (PCR) Crossmatch 06/29/20 06/29/20 06/30/20 Unknown Unknown 03:32 WBC 20.7 H RBC 2.57 L Hgb 7.6 L Hct 23.0 L MCHC RDW Lymph % (Auto) Lymph # (Auto) [place] # (Auto) Seg Neutrophils % Seg Neuts % (Manual) Lymphocytes % (Manual) Monocytes % (Manual) Nucleated RBC % Seg Neutrophils # Seg Neutrophils # Man Lymphocytes # (Manual) Monocytes # (Manual) Eosinophils # (Manual) PT INR APTT D-Dimer Heparin Anti-Xa Level ABG pH POC ABG pCO2 POC ABG pO2 ABG pO2 ABG HCO3 ABG Hemoglobin 11.4 L ABG Oxyhemoglobin ABG Sodium 130.1 L ABG Potassium 5.0 H ABG Chloride ABG Glucose Carboxyhemoglobin Sodium Potassium Chloride Carbon Dioxide BUN Creatinine Glucose POC Glucose Lactic Acid Calcium Phosphorus Magnesium Ferritin Direct Bilirubin AST ALT Lactate Dehydrogenase Total Creatine Kinase 618 H C-Reactive Protein Total Protein Albumin Triglycerides Arterial Blood Glucose Arterial Blood Ionized Calcium 3.9 L Urine Creatinine Urine Chloride Vancomycin Trough Coronavirus (PCR) Crossmatch 06/30/20 06/30/20 06/30/20 03:50 03:50 11:39 WBC 13.1 H RBC Hgb Hct MCHC RDW Lymph % (Auto) Lymph # (Auto) [place] # (Auto) Seg Neutrophils % Seg Neuts % (Manual) 95.0 H Lymphocytes % (Manual) 3.0 L Monocytes % (Manual) Nucleated RBC % Seg Neutrophils # Seg Neutrophils # Man 12.4 H Lymphocytes # (Manual) 0.4 L Monocytes # (Manual) Eosinophils # (Manual) PT INR APTT D-Dimer Heparin Anti-Xa Level ABG pH POC ABG pCO2 POC ABG pO2 ABG pO2 ABG HCO3 ABG Hemoglobin ABG Oxyhemoglobin ABG Sodium ABG Potassium ABG Chloride ABG Glucose Carboxyhemoglobin Sodium 135 L Potassium 5.4 H D Chloride 93.6 L Carbon Dioxide BUN 85 H Creatinine 4.6 H Glucose POC Glucose 111 H Lactic Acid Calcium 7.1 L Phosphorus 9.40 H Magnesium Ferritin Direct Bilirubin AST ALT Lactate Dehydrogenase Total Creatine Kinase C-Reactive Protein Total Protein Albumin Triglycerides Arterial Blood Glucose Arterial Blood Ionized Calcium Urine Creatinine Urine Chloride Vancomycin Trough Coronavirus (PCR) Crossmatch 06/30/20 06/30/20 07/01/20 13:12 Unknown 03:19 WBC RBC Hgb 7.8 L D Hct 23.2 L D MCHC RDW Lymph % (Auto) Lymph # (Auto) [place] # (Auto) Seg Neutrophils % Seg Neuts % (Manual) Lymphocytes % (Manual) Monocytes % (Manual) Nucleated RBC % Seg Neutrophils # Seg Neutrophils # Man Lymphocytes # (Manual) Monocytes # (Manual) Eosinophils # (Manual) PT INR APTT D-Dimer Heparin Anti-Xa Level ABG pH 7.461 H POC ABG pCO2 POC ABG pO2 77.2 L ABG pO2 ABG HCO3 ABG Hemoglobin 6.9 L ABG Oxyhemoglobin ABG Sodium 128.5 L ABG Potassium ABG Chloride 97.0 L ABG Glucose Carboxyhemoglobin Sodium Potassium Chloride Carbon Dioxide BUN Creatinine Glucose POC Glucose Lactic Acid Calcium Phosphorus Magnesium Ferritin Direct Bilirubin AST ALT Lactate Dehydrogenase Total Creatine Kinase C-Reactive Protein Total Protein Albumin Triglycerides Arterial Blood Glucose Arterial Blood Ionized Calcium 3.7 L Urine Creatinine Urine Chloride Vancomycin Trough Coronavirus (PCR) Positive A Crossmatch 07/01/20 07/01/20 07/01/20 06:00 06:00 11:04 WBC 16.7 H RBC 2.16 L Hgb 6.4 L Hct 19.2 L* MCHC RDW Lymph % (Auto) Lymph # (Auto) [place] # (Auto) Seg Neutrophils % Seg Neuts % (Manual) Lymphocytes % (Manual) Monocytes % (Manual) Nucleated RBC % Seg Neutrophils # Seg Neutrophils # Man Lymphocytes # (Manual) Monocytes # (Manual) Eosinophils # (Manual) PT INR APTT D-Dimer Heparin Anti-Xa Level ABG pH POC ABG pCO2 POC ABG pO2 ABG pO2 ABG HCO3 ABG Hemoglobin ABG Oxyhemoglobin ABG Sodium ABG Potassium ABG Chloride ABG Glucose Carboxyhemoglobin Sodium 136 L Potassium Chloride 95.8 L Carbon Dioxide BUN 72 H Creatinine 4.3 H Glucose POC Glucose Lactic Acid Calcium 6.7 L Phosphorus Magnesium Ferritin Direct Bilirubin AST ALT Lactate Dehydrogenase Total Creatine Kinase C-Reactive Protein Total Protein Albumin Triglycerides 250 H Arterial Blood Glucose Arterial Blood Ionized Calcium Urine Creatinine Urine Chloride Vancomycin Trough Coronavirus (PCR) Crossmatch See Detail 07/02/20 07/02/20 07/02/20 04:44 06:00 11:33 WBC 14.6 H RBC 2.47 L Hgb 7.4 L Hct 21.8 L MCHC RDW Lymph % (Auto) Lymph # (Auto) [place] # (Auto) Seg Neutrophils % Seg Neuts % (Manual) Lymphocytes % (Manual) Monocytes % (Manual) Nucleated RBC % Seg Neutrophils # Seg Neutrophils # Man Lymphocytes # (Manual) Monocytes # (Manual) Eosinophils # (Manual) PT INR APTT D-Dimer Heparin Anti-Xa Level ABG pH 7.457 H POC ABG pCO2 POC ABG pO2 79.4 L ABG pO2 ABG HCO3 ABG Hemoglobin 8.5 L ABG Oxyhemoglobin ABG Sodium 128.4 L ABG Potassium ABG Chloride 97.0 L ABG Glucose 100 H Carboxyhemoglobin Sodium 133 L Potassium 5.2 H Chloride 93.3 L Carbon Dioxide BUN 66 H Creatinine 4.1 H Glucose 102 H POC Glucose Lactic Acid Calcium 7.2 L Phosphorus Magnesium Ferritin Direct Bilirubin AST ALT Lactate Dehydrogenase Total Creatine Kinase C-Reactive Protein Total Protein Albumin Triglycerides Arterial Blood Glucose 100 H Arterial Blood Ionized Calcium 3.9 L Urine Creatinine Urine Chloride Vancomycin Trough Coronavirus (PCR) Crossmatch 07/02/20 07/03/20 07/03/20 11:33 03:54 09:15 WBC 16.6 H RBC 2.44 L Hgb 7.3 L Hct 21.4 L MCHC RDW Lymph % (Auto) Lymph # (Auto) [place] # (Auto) Seg Neutrophils % Seg Neuts % (Manual) Lymphocytes % (Manual) Monocytes % (Manual) Nucleated RBC % Seg Neutrophils # Seg Neutrophils # Man Lymphocytes # (Manual) Monocytes # (Manual) Eosinophils # (Manual) PT INR APTT D-Dimer Heparin Anti-Xa Level ABG pH POC ABG pCO2 POC ABG pO2 66.1 L ABG pO2 ABG HCO3 ABG Hemoglobin 8.0 L ABG Oxyhemoglobin ABG Sodium 124.6 L ABG Potassium 5.5 H ABG Chloride 96.0 L ABG Glucose 111 H Carboxyhemoglobin Sodium Potassium Chloride Carbon Dioxide BUN Creatinine Glucose POC Glucose Lactic Acid Calcium Phosphorus Magnesium Ferritin Direct Bilirubin 0.7 H AST 94 H ALT 60 H Lactate Dehydrogenase Total Creatine Kinase C-Reactive Protein Total Protein 4.4 L Albumin 1.9 L Triglycerides Arterial Blood Glucose 111 H Arterial Blood Ionized Calcium 3.8 L Urine Creatinine Urine Chloride Vancomycin Trough Coronavirus (PCR) Crossmatch 07/03/20 07/03/20 07/03/20 09:15 10:10 14:50 WBC RBC Hgb Hct MCHC RDW Lymph % (Auto) Lymph # (Auto) [place] # (Auto) Seg Neutrophils % Seg Neuts % (Manual) Lymphocytes % (Manual) Monocytes % (Manual) Nucleated RBC % Seg Neutrophils # Seg Neutrophils # Man Lymphocytes # (Manual) Monocytes # (Manual) Eosinophils # (Manual) PT INR APTT D-Dimer 6608.00 H Heparin Anti-Xa Level ABG pH POC ABG pCO2 POC ABG pO2 ABG pO2 ABG HCO3 ABG Hemoglobin ABG Oxyhemoglobin ABG Sodium ABG Potassium ABG Chloride ABG Glucose Carboxyhemoglobin Sodium 133 L Potassium 6.2 H* Chloride 93.1 L Carbon Dioxide BUN 89 H Creatinine 5.1 H Glucose POC Glucose Lactic Acid Calcium 7.0 L Phosphorus Magnesium Ferritin Direct Bilirubin AST ALT Lactate Dehydrogenase Total Creatine Kinase C-Reactive Protein Total Protein Albumin Triglycerides Arterial Blood Glucose Arterial Blood Ionized Calcium Urine Creatinine Urine Chloride Vancomycin Trough Coronavirus (PCR) Positive A Crossmatch 07/03/20 07/03/20 07/03/20 14:50 14:50 14:50 WBC RBC Hgb Hct MCHC RDW Lymph % (Auto) Lymph # (Auto) [place] # (Auto) Seg Neutrophils % Seg Neuts % (Manual) Lymphocytes % (Manual) Monocytes % (Manual) Nucleated RBC % Seg Neutrophils # Seg Neutrophils # Man Lymphocytes # (Manual) Monocytes # (Manual) Eosinophils # (Manual) PT INR APTT D-Dimer Heparin Anti-Xa Level ABG pH POC ABG pCO2 POC ABG pO2 ABG pO2 ABG HCO3 ABG Hemoglobin ABG Oxyhemoglobin ABG Sodium ABG Potassium ABG Chloride ABG Glucose Carboxyhemoglobin Sodium Potassium Chloride Carbon Dioxide BUN Creatinine Glucose POC Glucose Lactic Acid < 0.20 L Calcium Phosphorus Magnesium Ferritin 1171.0 H Direct Bilirubin AST ALT Lactate Dehydrogenase 525 H Total Creatine Kinase C-Reactive Protein 31.50 H Total Protein Albumin Triglycerides Arterial Blood Glucose Arterial Blood Ionized Calcium Urine Creatinine Urine Chloride Vancomycin Trough Coronavirus (PCR) Crossmatch 07/03/20 07/04/20 07/04/20 16:47 05:20 05:20 WBC 11.8 H RBC 2.32 L Hgb 6.7 L Hct 20.8 L MCHC RDW Lymph % (Auto) 2.6 L Lymph # (Auto) 0.3 L [place] # (Auto) Seg Neutrophils % Seg Neuts % (Manual) Lymphocytes % (Manual) Monocytes % (Manual) Nucleated RBC % Seg Neutrophils # 11.0 H Seg Neutrophils # Man Lymphocytes # (Manual) Monocytes # (Manual) Eosinophils # (Manual) PT INR APTT D-Dimer Heparin Anti-Xa Level ABG pH POC ABG pCO2 POC ABG pO2 ABG pO2 ABG HCO3 ABG Hemoglobin ABG Oxyhemoglobin ABG Sodium ABG Potassium ABG Chloride ABG Glucose Carboxyhemoglobin Sodium Potassium 6.0 H Chloride 97.8 L Carbon Dioxide BUN 75 H Creatinine 4.5 H Glucose 121 H POC Glucose 107 H Lactic Acid Calcium 7.9 L Phosphorus Magnesium Ferritin Direct Bilirubin AST ALT Lactate Dehydrogenase Total Creatine Kinase C-Reactive Protein Total Protein Albumin Triglycerides Arterial Blood Glucose Arterial Blood Ionized Calcium Urine Creatinine Urine Chloride Vancomycin Trough Coronavirus (PCR) Crossmatch 07/04/20 07/04/20 07/04/20 05:20 05:50 09:25 WBC RBC Hgb Hct MCHC RDW Lymph % (Auto) Lymph # (Auto) [place] # (Auto) Seg Neutrophils % Seg Neuts % (Manual) Lymphocytes % (Manual) Monocytes % (Manual) Nucleated RBC % Seg Neutrophils # Seg Neutrophils # Man Lymphocytes # (Manual) Monocytes # (Manual) Eosinophils # (Manual) PT INR APTT D-Dimer Heparin Anti-Xa Level ABG pH 7.324 L POC ABG pCO2 POC ABG pO2 ABG pO2 98.9 H ABG HCO3 26.8 H ABG Hemoglobin < 5.1 L ABG Oxyhemoglobin ABG Sodium ABG Potassium ABG Chloride ABG Glucose Carboxyhemoglobin Sodium Potassium Chloride Carbon Dioxide BUN Creatinine Glucose POC Glucose 114 H Lactic Acid Calcium Phosphorus Magnesium Ferritin Direct Bilirubin AST ALT Lactate Dehydrogenase Total Creatine Kinase C-Reactive Protein Total Protein Albumin Triglycerides Arterial Blood Glucose Arterial Blood Ionized Calcium Urine Creatinine Urine Chloride Vancomycin Trough Coronavirus (PCR) Crossmatch See Detail 07/04/20 07/04/20 07/04/20 12:33 17:41 23:04 WBC RBC Hgb Hct MCHC RDW Lymph % (Auto) Lymph # (Auto) [place] # (Auto) Seg Neutrophils % Seg Neuts % (Manual) Lymphocytes % (Manual) Monocytes % (Manual) Nucleated RBC % Seg Neutrophils # Seg Neutrophils # Man Lymphocytes # (Manual) Monocytes # (Manual) Eosinophils # (Manual) PT INR APTT D-Dimer Heparin Anti-Xa Level ABG pH POC ABG pCO2 POC ABG pO2 ABG pO2 ABG HCO3 ABG Hemoglobin ABG Oxyhemoglobin ABG Sodium ABG Potassium ABG Chloride ABG Glucose Carboxyhemoglobin Sodium Potassium Chloride Carbon Dioxide BUN Creatinine Glucose POC Glucose 119 H 109 H 116 H Lactic Acid Calcium Phosphorus Magnesium Ferritin Direct Bilirubin AST ALT Lactate Dehydrogenase Total Creatine Kinase C-Reactive Protein Total Protein Albumin Triglycerides Arterial Blood Glucose Arterial Blood Ionized Calcium Urine Creatinine Urine Chloride Vancomycin Trough Coronavirus (PCR) Crossmatch 07/05/20 07/05/20 07/05/20 04:30 08:21 08:21 WBC RBC 2.77 L Hgb 7.9 L Hct 23.9 L MCHC RDW 16.7 H Lymph % (Auto) 7.5 L Lymph # (Auto) 0.7 L [place] # (Auto) Seg Neutrophils % 85.8 H Seg Neuts % (Manual) Lymphocytes % (Manual) Monocytes % (Manual) Nucleated RBC % Seg Neutrophils # 7.8 H Seg Neutrophils # Man Lymphocytes # (Manual) Monocytes # (Manual) Eosinophils # (Manual) PT INR APTT D-Dimer Heparin Anti-Xa Level ABG pH 7.295 L POC ABG pCO2 POC ABG pO2 ABG pO2 151.9 H ABG HCO3 26.8 H ABG Hemoglobin 7.3 L ABG Oxyhemoglobin ABG Sodium ABG Potassium ABG Chloride ABG Glucose Carboxyhemoglobin Sodium Potassium Chloride Carbon Dioxide BUN Creatinine Glucose POC Glucose Lactic Acid Calcium Phosphorus Magnesium Ferritin Direct Bilirubin AST ALT Lactate Dehydrogenase Total Creatine Kinase C-Reactive Protein Total Protein Albumin Triglycerides 258 H Arterial Blood Glucose Arterial Blood Ionized Calcium Urine Creatinine Urine Chloride Vancomycin Trough Coronavirus (PCR) Crossmatch 07/05/20 07/05/20 07/06/20 08:21 12:12 04:29 WBC RBC Hgb Hct MCHC RDW Lymph % (Auto) Lymph # (Auto) [place] # (Auto) Seg Neutrophils % Seg Neuts % (Manual) Lymphocytes % (Manual) Monocytes % (Manual) Nucleated RBC % Seg Neutrophils # Seg Neutrophils # Man Lymphocytes # (Manual) Monocytes # (Manual) Eosinophils # (Manual) PT INR APTT D-Dimer Heparin Anti-Xa Level ABG pH 7.291 L POC ABG pCO2 51.3 H POC ABG pO2 ABG pO2 ABG HCO3 ABG Hemoglobin 8.5 L ABG Oxyhemoglobin ABG Sodium 129.6 L ABG Potassium 4.8 H ABG Chloride 96.0 L ABG Glucose Carboxyhemoglobin Sodium 133 L Potassium 5.6 H Chloride 94.4 L Carbon Dioxide BUN 80 H Creatinine 4.2 H Glucose 114 H POC Glucose 106 H Lactic Acid Calcium 7.6 L Phosphorus Magnesium Ferritin Direct Bilirubin 0.5 H AST 75 H ALT 86 H Lactate Dehydrogenase Total Creatine Kinase C-Reactive Protein Total Protein 5.6 L D Albumin 1.9 L Triglycerides Arterial Blood Glucose Arterial Blood Ionized Calcium 4.2 L Urine Creatinine Urine Chloride Vancomycin Trough Coronavirus (PCR) Crossmatch 07/06/20 07/06/20 07/06/20 11:35 11:35 12:16 WBC RBC 2.54 L Hgb 7.5 L Hct 21.5 L MCHC 35 H RDW 15.7 H Lymph % (Auto) Lymph # (Auto) [place] # (Auto) Seg Neutrophils % Seg Neuts % (Manual) Lymphocytes % (Manual) Monocytes % (Manual) Nucleated RBC % Seg Neutrophils # Seg Neutrophils # Man Lymphocytes # (Manual) Monocytes # (Manual) Eosinophils # (Manual) PT INR APTT D-Dimer Heparin Anti-Xa Level ABG pH POC ABG pCO2 POC ABG pO2 ABG pO2 ABG HCO3 ABG Hemoglobin ABG Oxyhemoglobin ABG Sodium ABG Potassium ABG Chloride ABG Glucose Carboxyhemoglobin Sodium 130 L Potassium Chloride 92.2 L Carbon Dioxide 19 L D BUN 107 H Creatinine 5.1 H Glucose 106 H POC Glucose 106 H Lactic Acid Calcium 7.5 L Phosphorus Magnesium Ferritin Direct Bilirubin AST ALT Lactate Dehydrogenase Total Creatine Kinase C-Reactive Protein Total Protein Albumin Triglycerides Arterial Blood Glucose Arterial Blood Ionized Calcium Urine Creatinine Urine Chloride Vancomycin Trough Coronavirus (PCR) Crossmatch 07/06/20 07/06/20 07/06/20 17:01 21:56 23:41 WBC RBC Hgb Hct MCHC RDW Lymph % (Auto) Lymph # (Auto) [place] # (Auto) Seg Neutrophils % Seg Neuts % (Manual) Lymphocytes % (Manual) Monocytes % (Manual) Nucleated RBC % Seg Neutrophils # Seg Neutrophils # Man Lymphocytes # (Manual) Monocytes # (Manual) Eosinophils # (Manual) PT INR APTT D-Dimer Heparin Anti-Xa Level ABG pH POC ABG pCO2 POC ABG pO2 ABG pO2 ABG HCO3 ABG Hemoglobin ABG Oxyhemoglobin ABG Sodium ABG Potassium ABG Chloride ABG Glucose Carboxyhemoglobin Sodium 135 L Potassium 5.1 H Chloride Carbon Dioxide BUN 73 H Creatinine 4.0 H Glucose 112 H POC Glucose 109 H 111 H Lactic Acid Calcium 7.8 L Phosphorus Magnesium Ferritin Direct Bilirubin AST ALT Lactate Dehydrogenase Total Creatine Kinase C-Reactive Protein Total Protein Albumin Triglycerides Arterial Blood Glucose Arterial Blood Ionized Calcium Urine Creatinine Urine Chloride Vancomycin Trough Coronavirus (PCR) Crossmatch 07/07/20 07/07/20 07/07/20 04:18 05:04 05:29 WBC RBC 2.46 L Hgb 7.6 L Hct 21.5 L MCHC 35 H RDW 16.5 H Lymph % (Auto) Lymph # (Auto) [place] # (Auto) Seg Neutrophils % Seg Neuts % (Manual) 82.0 H Lymphocytes % (Manual) Monocytes % (Manual) Nucleated RBC % 1.0 H Seg Neutrophils # Seg Neutrophils # Man Lymphocytes # (Manual) 1.1 L Monocytes # (Manual) Eosinophils # (Manual) PT INR APTT D-Dimer Heparin Anti-Xa Level ABG pH POC ABG pCO2 POC ABG pO2 79.6 L ABG pO2 ABG HCO3 ABG Hemoglobin 8.2 L ABG Oxyhemoglobin ABG Sodium 133.3 L ABG Potassium 4.7 H ABG Chloride ABG Glucose 135 H Carboxyhemoglobin Sodium Potassium Chloride Carbon Dioxide BUN Creatinine Glucose POC Glucose 112 H Lactic Acid Calcium Phosphorus Magnesium Ferritin Direct Bilirubin AST ALT Lactate Dehydrogenase Total Creatine Kinase C-Reactive Protein Total Protein Albumin Triglycerides Arterial Blood Glucose 135 H Arterial Blood Ionized Calcium 4.5 L Urine Creatinine Urine Chloride Vancomycin Trough Coronavirus (PCR) Crossmatch 07/07/20 07/07/20 07/07/20 10:17 12:18 17:43 WBC RBC Hgb Hct MCHC RDW Lymph % (Auto) Lymph # (Auto) [place] # (Auto) Seg Neutrophils % Seg Neuts % (Manual) Lymphocytes % (Manual) Monocytes % (Manual) Nucleated RBC % Seg Neutrophils # Seg Neutrophils # Man Lymphocytes # (Manual) Monocytes # (Manual) Eosinophils # (Manual) PT INR APTT D-Dimer Heparin Anti-Xa Level ABG pH POC ABG pCO2 POC ABG pO2 ABG pO2 ABG HCO3 ABG Hemoglobin ABG Oxyhemoglobin ABG Sodium ABG Potassium ABG Chloride ABG Glucose Carboxyhemoglobin Sodium 136 L Potassium Chloride 96.8 L Carbon Dioxide BUN 82 H Creatinine 4.3 H Glucose 129 H POC Glucose 108 H 116 H Lactic Acid Calcium 7.8 L Phosphorus Magnesium Ferritin Direct Bilirubin AST ALT Lactate Dehydrogenase Total Creatine Kinase C-Reactive Protein Total Protein Albumin Triglycerides Arterial Blood Glucose Arterial Blood Ionized Calcium Urine Creatinine Urine Chloride Vancomycin Trough Coronavirus (PCR) Crossmatch 07/07/20 07/08/20 07/08/20 23:31 04:00 04:00 WBC RBC 2.52 L Hgb 7.3 L Hct 22.2 L MCHC RDW 16.6 H Lymph % (Auto) 11.5 L Lymph # (Auto) [place] # (Auto) Seg Neutrophils % 78.2 H Seg Neuts % (Manual) Lymphocytes % (Manual) Monocytes % (Manual) Nucleated RBC % Seg Neutrophils # 8.0 H Seg Neutrophils # Man Lymphocytes # (Manual) Monocytes # (Manual) Eosinophils # (Manual) PT INR APTT D-Dimer Heparin Anti-Xa Level ABG pH POC ABG pCO2 POC ABG pO2 ABG pO2 ABG HCO3 ABG Hemoglobin ABG Oxyhemoglobin ABG Sodium ABG Potassium ABG Chloride ABG Glucose Carboxyhemoglobin Sodium 132 L Potassium 5.4 H Chloride 92.5 L Carbon Dioxide BUN 98 H Creatinine 4.9 H Glucose 105 H POC Glucose 117 H Lactic Acid Calcium 7.9 L Phosphorus Magnesium Ferritin Direct Bilirubin AST ALT Lactate Dehydrogenase Total Creatine Kinase C-Reactive Protein Total Protein Albumin Triglycerides Arterial Blood Glucose Arterial Blood Ionized Calcium Urine Creatinine Urine Chloride Vancomycin Trough Coronavirus (PCR) Crossmatch 07/08/20 07/08/20 07/08/20 04:09 11:34 17:05 WBC RBC Hgb Hct MCHC RDW Lymph % (Auto) Lymph # (Auto) [place] # (Auto) Seg Neutrophils % Seg Neuts % (Manual) Lymphocytes % (Manual) Monocytes % (Manual) Nucleated RBC % Seg Neutrophils # Seg Neutrophils # Man Lymphocytes # (Manual) Monocytes # (Manual) Eosinophils # (Manual) PT INR APTT D-Dimer Heparin Anti-Xa Level ABG pH 7.220 L POC ABG pCO2 60.5 H POC ABG pO2 ABG pO2 ABG HCO3 ABG Hemoglobin 8.2 L ABG Oxyhemoglobin ABG Sodium 131.3 L ABG Potassium 5.2 H ABG Chloride ABG Glucose 103 H Carboxyhemoglobin Sodium Potassium Chloride Carbon Dioxide BUN Creatinine Glucose POC Glucose 140 H 125 H Lactic Acid Calcium Phosphorus Magnesium Ferritin Direct Bilirubin AST ALT Lactate Dehydrogenase Total Creatine Kinase C-Reactive Protein Total Protein Albumin Triglycerides Arterial Blood Glucose 103 H Arterial Blood Ionized Calcium 4.3 L Urine Creatinine Urine Chloride Vancomycin Trough Coronavirus (PCR) Crossmatch 07/08/20 07/08/20 07/09/20 20:21 23:43 05:10 WBC RBC Hgb Hct MCHC RDW Lymph % (Auto) Lymph # (Auto) [place] # (Auto) Seg Neutrophils % Seg Neuts % (Manual) Lymphocytes % (Manual) Monocytes % (Manual) Nucleated RBC % Seg Neutrophils # Seg Neutrophils # Man Lymphocytes # (Manual) Monocytes # (Manual) Eosinophils # (Manual) PT INR APTT D-Dimer Heparin Anti-Xa Level ABG pH 7.20 L POC ABG pCO2 69.8 H POC ABG pO2 138.9 H 76.1 L ABG pO2 ABG HCO3 ABG Hemoglobin 11.9 L 8.4 L ABG Oxyhemoglobin ABG Sodium 133.1 L 131.2 L ABG Potassium 5.0 H 4.7 H ABG Chloride ABG Glucose 120 H 102 H Carboxyhemoglobin Sodium Potassium Chloride Carbon Dioxide BUN Creatinine Glucose POC Glucose 118 H Lactic Acid Calcium Phosphorus Magnesium Ferritin Direct Bilirubin AST ALT Lactate Dehydrogenase Total Creatine Kinase C-Reactive Protein Total Protein Albumin Triglycerides Arterial Blood Glucose 120 H 102 H Arterial Blood Ionized Calcium 4.4 L 4.3 L Urine Creatinine Urine Chloride Vancomycin Trough Coronavirus (PCR) Crossmatch 07/09/20 07/09/20 07/09/20 11:51 17:04 21:00 WBC RBC Hgb Hct MCHC RDW Lymph % (Auto) Lymph # (Auto) [place] # (Auto) Seg Neutrophils % Seg Neuts % (Manual) Lymphocytes % (Manual) Monocytes % (Manual) Nucleated RBC % Seg Neutrophils # Seg Neutrophils # Man Lymphocytes # (Manual) Monocytes # (Manual) Eosinophils # (Manual) PT INR APTT D-Dimer Heparin Anti-Xa Level ABG pH POC ABG pCO2 POC ABG pO2 114.2 H ABG pO2 ABG HCO3 ABG Hemoglobin 7.8 L ABG Oxyhemoglobin ABG Sodium 132.3 L ABG Potassium 4.6 H ABG Chloride ABG Glucose Carboxyhemoglobin Sodium Potassium Chloride Carbon Dioxide BUN Creatinine Glucose POC Glucose 113 H 111 H Lactic Acid Calcium Phosphorus Magnesium Ferritin Direct Bilirubin AST ALT Lactate Dehydrogenase Total Creatine Kinase C-Reactive Protein Total Protein Albumin Triglycerides Arterial Blood Glucose Arterial Blood Ionized Calcium 4.4 L Urine Creatinine Urine Chloride Vancomycin Trough Coronavirus (PCR) Crossmatch 07/10/20 07/10/20 07/10/20 03:49 03:55 03:55 WBC 18.1 H RBC 2.37 L Hgb 6.8 L Hct 20.7 L MCHC RDW 16.9 H Lymph % (Auto) Lymph # (Auto) [place] # (Auto) Seg Neutrophils % Seg Neuts % (Manual) 79.0 H Lymphocytes % (Manual) 10.0 L Monocytes % (Manual) Nucleated RBC % 1.0 H Seg Neutrophils # Seg Neutrophils # Man 14.3 H Lymphocytes # (Manual) Monocytes # (Manual) Eosinophils # (Manual) 0.7 H PT INR APTT D-Dimer Heparin Anti-Xa Level ABG pH POC ABG pCO2 POC ABG pO2 ABG pO2 ABG HCO3 ABG Hemoglobin 7.7 L ABG Oxyhemoglobin ABG Sodium 130.3 L ABG Potassium 4.6 H ABG Chloride ABG Glucose Carboxyhemoglobin Sodium 136 L Potassium Chloride 96.0 L Carbon Dioxide BUN 76 H Creatinine 3.6 H Glucose POC Glucose Lactic Acid Calcium 7.4 L Phosphorus Magnesium Ferritin Direct Bilirubin AST ALT Lactate Dehydrogenase Total Creatine Kinase C-Reactive Protein Total Protein Albumin Triglycerides Arterial Blood Glucose Arterial Blood Ionized Calcium 4.2 L Urine Creatinine Urine Chloride Vancomycin Trough Coronavirus (PCR) Crossmatch 07/10/20 07/11/20 07/11/20 13:24 04:08 06:52 WBC 26.0 H RBC 2.91 L Hgb 8.2 L Hct 24.8 L MCHC RDW 17.2 H Lymph % (Auto) Lymph # (Auto) [place] # (Auto) Seg Neutrophils % Seg Neuts % (Manual) Lymphocytes % (Manual) 1.0 L Monocytes % (Manual) 11.0 H Nucleated RBC % Seg Neutrophils # Seg Neutrophils # Man 16.9 H Lymphocytes # (Manual) 0.3 L Monocytes # (Manual) 2.9 H Eosinophils # (Manual) 1.0 H PT INR APTT D-Dimer Heparin Anti-Xa Level ABG pH POC ABG pCO2 POC ABG pO2 ABG pO2 ABG HCO3 ABG Hemoglobin 8.5 L ABG Oxyhemoglobin ABG Sodium 130.6 L ABG Potassium 4.9 H ABG Chloride ABG Glucose 105 H Carboxyhemoglobin Sodium Potassium Chloride Carbon Dioxide BUN Creatinine Glucose POC Glucose Lactic Acid Calcium Phosphorus Magnesium Ferritin Direct Bilirubin AST ALT Lactate Dehydrogenase Total Creatine Kinase C-Reactive Protein Total Protein Albumin Triglycerides Arterial Blood Glucose 105 H Arterial Blood Ionized Calcium 4.1 L Urine Creatinine Urine Chloride Vancomycin Trough Coronavirus (PCR) Crossmatch See Detail 07/11/20 07/11/20 06:52 08:48 WBC RBC Hgb Hct MCHC RDW Lymph % (Auto) Lymph # (Auto) [place] # (Auto) Seg Neutrophils % Seg Neuts % (Manual) Lymphocytes % (Manual) Monocytes % (Manual) Nucleated RBC % Seg Neutrophils # Seg Neutrophils # Man Lymphocytes # (Manual) Monocytes # (Manual) Eosinophils # (Manual) PT INR APTT D-Dimer Heparin Anti-Xa Level ABG pH POC ABG pCO2 POC ABG pO2 ABG pO2 ABG HCO3 ABG Hemoglobin ABG Oxyhemoglobin ABG Sodium ABG Potassium ABG Chloride ABG Glucose Carboxyhemoglobin Sodium 133 L 134 L Potassium 5.3 H Chloride 93.5 L 94.8 L Carbon Dioxide BUN 101 H 99 H Creatinine 4.5 H 4.6 H Glucose 102 H POC Glucose Lactic Acid Calcium 7.8 L 7.6 L Phosphorus Magnesium Ferritin Direct Bilirubin AST ALT Lactate Dehydrogenase Total Creatine Kinase C-Reactive Protein Total Protein Albumin Triglycerides Arterial Blood Glucose Arterial Blood Ionized Calcium Urine Creatinine Urine Chloride Vancomycin Trough Coronavirus (PCR) Crossmatch Chest x-ray: other (none today) Allied health notes reviewed: nursing
[2020-07-12] MEDS: NORepinephrine/NS 4 MG-250 ML 4 MG/250 ML BAG IV SCH (00:11)
[2020-07-12] MEDS: INSULIN REGULAR, HUMAN 100 UNITS/1 ML SUB-Q SCH ×4 (00:47→18:00)
[2020-07-12] MEDS: fentaNYL DRIP Premix 2,000 MCG/100 ML BAG IV SCH ×4 (03:34→21:32)
[2020-07-12 03:58] LABS: Hematocrit 24.9 % (35.5-45.6); Mean Corpuscular HGB Conc 32 % (32-34); Mean Corpuscular Volume 88 fl (84-94); Platelet Count 285 K/mm3 (140-440); Red Blood Count 2.83 M/mm3 (3.65-5.03); Red Cell Distribution Width 17.7 % (13.2-15.2)
[2020-07-12 04:02] LABS: Basophils # (Auto) 0.1 K/mm3 (0.0-0.1); Basophils % (Auto) 0.3 % (0.0-1.8); Eosinophils # (Auto) 0.7 K/mm3 (0.0-0.4); Eosinophils % (Auto) 2.8 % (0.0-4.3); Lymphocytes # (Auto) 1.4 K/mm3 (1.2-5.4); Lymphocytes % (Auto) 5.6 % (13.4-35.0); Monocytes # (Auto) 1.8 K/mm3 (0.0-0.8); Monocytes % (Auto) 7.4 % (0.0-7.3)
[2020-07-12 04:09] LABS: Calcium 7.8 mg/dL (8.4-10.2)
[2020-07-12] MEDS: HEPARIN 5,000 UNIT/1 ML VIAL SUB-Q SCH ×3 (05:19→21:35)
[2020-07-12] MEDS: SODIUM BICARBONATE 650 MG TAB PO SCH ×3 (07:54→20:20)
[2020-07-12] MEDS: VASOPRESSIN 20 UNIT in SODIUM CHLORIDE 0.9% 100 ML IV SCH ×2 (09:19→20:24)
[2020-07-12] MEDS: POLYETHYLENE GLYCOL 3350 17 GM POWDER PO SCH (09:20)
[2020-07-12] MEDS: DOCUSATE SODIUM 100 MG/10 ML ORAL LIQD FEEDTUBE SCH ×2 (09:20→21:35)
[2020-07-12] MEDS: ZINC SULFATE 220 MG CAP PO SCH ×2 (09:20→21:35)
[2020-07-12] MEDS: AMIODARONE 200 MG TAB PO SCH ×2 (09:20→21:34)
[2020-07-12] MEDS: ASCORBIC ACID 250 MG TAB PO SCH ×2 (09:20→21:34)
[2020-07-12] MEDS: CHOLECALCIFEROL (VIT D3) 1000 UNIT (25 mcg) TAB PO SCH (09:20)
[2020-07-12] MEDS: QUEtiapine 200 MG TAB PO SCH ×2 (09:20→21:34)
[2020-07-12] MEDS: FAMOTIDINE 20 MG/2 ML INJ IV SCH (09:20)
[2020-07-12] MEDS: dexAMETHasone 4 MG/ML VIAL IV SCH (09:20)
--- NOTE | 2020-07-12 09:51 | Progress Note ---
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 Kidney function worsened and patient developed hyperkalemia, refractory acidosis and worsening azotemia, no signs of significant renal recovery, will cont HD on MWF schedule (2) Severe sepsis with septic shock Current Visit: Yes Status: Acute Plan to address problem: Continue antibiotics per infectious disease community health consultant appropriately adjusted to the degree of renal function. Patient is on intermittent vasopressors to maintain MAP > 65mmHg . (3) Hyperkalemia Current Visit: Yes Status: Acute Plan to address problem: corrected with dialysis. cont 2g K renal diet (4) Metabolic acidosis Current Visit: Yes Status: Acute Plan to address problem: Acidosis corrected with dialysis. (5) Acute respiratory failure with hypoxia Current Visit: Yes Status: Acute Plan to address problem: Continue respiratory management by pulmonary (6) Pneumonia due to COVID-19 virus Current Visit: Yes Status: Acute Plan to address problem: IV Dexamethasone Supplemental oxygen/Respiratory support as needed Proning as tolerated Remdesevir contra-indicated due to Kidney failure Prophylactic anticoagulation Trend inflammatory markers to assess disease progression and prognosis Subjective Date of service: 07/12/20 Principal diagnosis: ARF; Septic Shock; COVID-19 PNA; Atrial fibrillation; Obesity Interval history: Patient was not examined today due to the COVID-19 status to 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 I reviewed multidisciplinary notes and discussed with staff and physicians as needed. Patient is sedated on propofol and fentanyl. Off vasopressors currently Objective - Exam Narrative Exam: exam deferred d/t PPE preservation - Vital Signs Vital signs: Vital Signs - 12hr 07/11/20 07/11/20 07/11/20 22:00 22:15 22:30 Temperature Pulse Rate 118 H 115 H 97 H Pulse Rate [ From Monitor] Respiratory 14 13 16 Rate Blood Pressure 100/49 78/51 95/53 O2 Sat by Pulse 93 97 97 Oximetry 07/11/20 07/11/20 07/11/20 22:45 23:00 23:15 Temperature Pulse Rate 94 H 104 H 96 H Pulse Rate [ From Monitor] Respiratory 19 18 23 Rate Blood Pressure 99/61 99/61 107/63 O2 Sat by Pulse 97 98 99 Oximetry 07/11/20 07/11/20 07/11/20 23:24 23:30 23:45 Temperature Pulse Rate 87 126 H 107 H Pulse Rate [ From Monitor] Respiratory 18 24 Rate Blood Pressure 107/63 114/75 112/60 O2 Sat by Pulse 99 98 98 Oximetry 07/11/20 07/12/20 07/12/20 23:58 00:00 00:15 Temperature 98.8 F Pulse Rate 103 H 110 H 88 Pulse Rate [ From Monitor] Respiratory 25 H 27 H 16 Rate Blood Pressure 112/60 109/61 110/58 O2 Sat by Pulse 98 98 98 Oximetry 07/12/20 07/12/20 07/12/20 00:30 00:45 01:00 Temperature Pulse Rate 91 H 95 H 98 H Pulse Rate [ From Monitor] Respiratory 24 27 H 29 H Rate Blood Pressure 111/61 110/67 110/67 O2 Sat by Pulse 99 98 98 Oximetry 07/12/20 07/12/20 07/12/20 01:15 01:30 01:45 Temperature Pulse Rate 84 98 H 99 H Pulse Rate [ From Monitor] Respiratory 26 H 26 H 27 H Rate Blood Pressure 119/60 117/75 122/67 O2 Sat by Pulse 99 99 99 Oximetry 07/12/20 07/12/20 07/12/20 02:00 02:15 02:30 Temperature Pulse Rate 96 H 98 H 93 H Pulse Rate [ From Monitor] Respiratory 24 25 H 25 H Rate Blood Pressure 122/67 115/64 120/64 O2 Sat by Pulse 98 98 98 Oximetry 07/12/20 07/12/20 07/12/20 02:45 03:00 03:15 Temperature Pulse Rate 97 H 91 H 100 H Pulse Rate [ From Monitor] Respiratory 26 H 27 H 27 H Rate Blood Pressure 119/70 122/62 108/72 O2 Sat by Pulse 98 97 98 Oximetry 07/12/20 07/12/20 07/12/20 03:30 03:45 04:00 Temperature 97.8 F Pulse Rate 100 H 100 H 99 H Pulse Rate [ From Monitor] Respiratory 24 25 H 25 H Rate Blood Pressure 97/76 107/74 121/67 O2 Sat by Pulse 98 98 97 Oximetry 07/12/20 07/12/20 07/12/20 04:16 04:30 04:41 Temperature Pulse Rate 95 H 100 H 108 H Pulse Rate [ From Monitor] Respiratory 25 H 23 Rate Blood Pressure 127/62 127/62 115/74 O2 Sat by Pulse 95 95 96 Oximetry 07/12/20 07/12/20 07/12/20 04:45 05:00 05:15 Temperature Pulse Rate 124 H 94 H 96 H Pulse Rate [ From Monitor] Respiratory 23 25 H 25 H Rate Blood Pressure 130/70 130/70 111/65 O2 Sat by Pulse 95 95 96 Oximetry 07/12/20 07/12/20 07/12/20 05:30 05:45 06:00 Temperature Pulse Rate 102 H 99 H 94 H Pulse Rate [ From Monitor] Respiratory 18 24 28 H Rate Blood Pressure 111/65 113/73 114/63 O2 Sat by Pulse 95 97 96 Oximetry 07/12/20 07/12/20 07/12/20 06:16 06:30 06:45 Temperature Pulse Rate 140 H 91 H 98 H Pulse Rate [ From Monitor] Respiratory 20 22 24 Rate Blood Pressure 129/61 110/66 117/72 O2 Sat by Pulse 98 96 97 Oximetry 07/12/20 07/12/20 07/12/20 07:00 07:15 07:26 Temperature 98.7 F Pulse Rate 103 H 98 H Pulse Rate [ From Monitor] Respiratory 26 H 24 Rate Blood Pressure 117/72 122/66 O2 Sat by Pulse 97 97 Oximetry 07/12/20 07/12/20 07/12/20 07:30 07:45 08:00 Temperature Pulse Rate 99 H 105 H 116 H Pulse Rate [ 106 H From Monitor] Respiratory 26 H 24 26 H Rate Blood Pressure 116/56 118/53 120/67 O2 Sat by Pulse 97 97 97 Oximetry 07/12/20 07/12/20 07/12/20 08:06 08:15 08:30 Temperature Pulse Rate 106 H 102 H 104 H Pulse Rate [ From Monitor] Respiratory 26 H 27 H Rate Blood Pressure 120/67 127/72 118/63 O2 Sat by Pulse 99 97 97 Oximetry 07/12/20 07/12/20 07/12/20 08:45 09:00 09:15 Temperature Pulse Rate 103 H 109 H 104 H Pulse Rate [ From Monitor] Respiratory 24 22 26 H Rate Blood Pressure 126/64 126/64 104/62 O2 Sat by Pulse 96 96 96 Oximetry 07/12/20 07/12/20 09:30 09:45 Temperature Pulse Rate 109 H 128 H Pulse Rate [ From Monitor] Respiratory 22 22 Rate Blood Pressure 104/63 89/51 O2 Sat by Pulse 96 94 Oximetry - Lab 07/12/20 03:40 07/12/20 03:40 Most recent lab results ABG pH 7.340 (7.320-7.450) 07/12/20 03:20 ABG pCO2 56.4 mm Hg 07/05/20 04:30 ABG pO2 151.9 mm Hg (80.0-90.0) H 07/05/20 04:30 ABG HCO3 26.8 mmol/L (20.0-26.0) H 07/05/20 04:30 ABG O2 Saturation 98.7 % (95.0-99.0) 07/05/20 04:30 Calcium 7.8 mg/dL (8.4-10.2) L 07/12/20 03:40 Phosphorus 9.40 mg/dL (2.5-4.5) H 06/30/20 03:50 Magnesium 2.70 mg/dL (1.7-2.3) H 06/18/20 20:33 Urine Creatinine 192.4 mg/dL (0.1-20.0) H 06/18/20 15:00 Urine Sodium 28 mmol/L 06/18/20 15:00 Medications & Allergies - Medications Allergies/Adverse Reactions: Allergies No Known Allergies Allergy (Unverified 06/17/20 14:24) Home Medications: Home Medications Medication Instructions Recorded Confirmed Last Taken Type Losartan/Hydrochlorothiazide 1 each PO QDAY 06/19/20 06/19/20 Unknown History [Losartan-Hctz 100-25 mg Tab] amLODIPine [Norvasc] 5 mg PO DAILY 06/19/20 06/19/20 Unknown History Active Medications: Generic Name Dose Route Start Last Admin Trade Name Freq PRN Reason Stop Dose Admin Acetaminophen 650 mg 06/17/20 14:17 07/03/20 09:16 Acetaminophen 325 Mg Tab PO 650 mg Q4H PRN Administration Pain MILD(1-3)/Fever >100.5/ROBERTS Amiodarone HCl 200 mg 07/08/20 12:30 07/12/20 09:20 Amiodarone 200 Mg Tab PO 200 mg BID CONNOR Administration Lipase/Protease/Amylase 1 each 06/19/20 12:15 Lipase 10,500/Protease 25,000/Amylase 43,750 (Units) Dr Kulkarni FEEDTUBE PRN PRN For Clogged Feeding Tube Ascorbic Acid 250 mg 06/17/20 22:00 07/12/20 09:20 Ascorbic Acid 250 Mg Tab PO 250 mg BID CONNOR Administration Cholecalciferol 1,000 unit 06/18/20 10:00 07/12/20 09:20 Cholecalciferol (Vit D3) 1000 Unit (25 Mcg) Tab PO 1,000 unit DAILY CONNOR Administration Dexamethasone 4 mg 07/12/20 10:00 07/12/20 09:20 Dexamethasone 4 Mg/Ml Vial IV 07/13/20 13:59 4 mg DAILY CONNOR Administration Dexamethasone 2 mg 07/14/20 10:00 Dexamethasone 4 Mg/Ml Vial IV 07/15/20 10:01 DAILY CONNOR Docusate Sodium 100 mg 06/23/20 15:00 07/12/20 09:20 Docusate Sodium 100 Mg/10 Ml Oral Liqd FEEDTUBE 100 mg BID CONNOR Administration Famotidine 20 mg 06/20/20 11:00 07/12/20 09:20 Famotidine 20 Mg/2 Ml Inj IV 20 mg DAILY CONNOR Administration Fentanyl 50 mcg 06/18/20 01:02 07/09/20 00:20 Fentanyl 100 Mcg/2 Ml Inj IV 50 mcg Q10MIN PRN Administration ANALGESIA Heparin Sodium (Porcine) 5,000 unit 06/22/20 12:53 06/30/20 13:36 Heparin 10,000 Unit/1 Ml Vial IV 5,000 unit PAM PRN Administration hemodialysis Heparin Sodium (Porcine) 5,000 unit 07/03/20 22:00 07/12/20 05:19 Heparin 5,000 Unit/1 Ml Vial SUB-Q 5,000 unit Q8HR CONNOR Administration Hydrophilic Ointment 1 applic 06/17/20 22:52 07/02/20 20:45 Lip Therapy Vaseline TP 1 applic Q2HR PRN Administration Dry Lips Propofol 1,000 mg in 100 mls @ 3.402 mls/hr 06/18/20 01:00 07/12/20 01:15 Diprivan 10 Mg/Ml IV 10 mcg/kg/min TITR CONNOR 6.804 mls/hr Administration Protocol 5 MCG/KG/MIN Fentanyl Citrate 2,000 mcg in 100 mls @ 5.67 mls/hr 06/18/20 02:00 07/12/20 09:19 Fentanyl Drip Premix IV 3 mcg/kg/hr TITR CONNOR 17.01 mls/hr Administration Protocol 1 MCG/KG/HR Sodium Chloride 500 mls @ 1 mls/hr 06/18/20 09:38 06/19/20 21:37 Nacl 0.9% 500 Ml IV 0 mls/hr DIRECT PRN Infusion ARTERIAL LINE FLUSH Norepinephrine 4 mg in 250 mls @ 7.5 mls/hr 07/08/20 02:06 07/12/20 09:19 Levophed Drip 4 Mg/Ns 250 Ml IV 2 mcg/min TITR CONNOR 7.5 mls/hr Titration Protocol 2 MCG/MIN Sodium Chloride 100 mls @ 999 mls/hr 07/08/20 12:19 Nacl 0.9% IV PAM PRN Hypotension Vasopressin 20 unit/ Sodium 101 mls @ 9.09 mls/hr 07/11/20 11:00 07/12/20 09:19 Chloride IV 0.03 units/min TITR CONNOR 9.09 mls/hr Administration Protocol 0.03 UNITS/MIN Insulin Human Regular 0 units 06/18/20 12:00 07/12/20 05:57 Insulin Regular, Human 100 Units/1 Ml SUB-Q Not Given Q6HR PENDING SALE TO [facility] Protocol Multi-Ingred Cream/Lotion/Oil/Oint 1 applic 06/17/20 22:52 Mineral Oil/Petrolatum, White Ophth Oint 3.5 Gm OU Q4HR PRN Dry Eye(s) Ondansetron HCl 4 mg 06/17/20 14:17 Ondansetron 4 Mg/2 Ml Inj IV Q8H PRN Nausea And Vomiting Polyethylene Glycol 17 gm 06/23/20 15:00 07/12/20 09:20 Polyethylene Glycol 3350 17 Gm Powder PO 17 gm QDAY CONNOR Administration Quetiapine Fumarate 200 mg 06/28/20 13:00 07/12/20 09:20 Quetiapine 200 Mg Tab PO 200 mg BID CONNOR Administration Simple Syrup 15 ml 06/19/20 12:15 Simple Syrup 15 Ml FEEDTUBE PRN PRN Hypoglycemia Simple Syrup 30 ml 06/19/20 12:15 Simple Syrup 15 Ml FEEDTUBE PRN PRN Hypoglycemia Sodium Bicarbonate 325 mg 06/19/20 12:15 07/11/20 20:00 Sodium Bicarbonate 325 Mg Tab FEEDTUBE 325 mg PRN PRN Administration For Clogged Feeding Tube Sodium Bicarbonate 650 mg 07/04/20 10:00 07/12/20 07:54 Sodium Bicarbonate 650 Mg Tab PO 650 mg TID CONNOR Administration Sodium Chloride 10 ml 06/17/20 22:00 07/12/20 09:29 Sodium Chloride 0.9% 10 Ml Flush Syringe IV 10 ml BID CONNOR Administration Sodium Chloride 10 ml 06/17/20 14:17 Sodium Chloride 0.9% 10 Ml Flush Syringe IV PRN PRN LINE FLUSH Sodium Polystyrene Sulfonate 15 gm 07/03/20 11:19 07/05/20 10:36 Sodium Polystyrene 15 Gm/60 Ml Oral Liqd PO 15 gm Q6HR PRN Administration Hyperkalemia Zinc Sulfate 220 mg 06/17/20 22:00 07/12/20 09:20 Zinc Sulfate 220 Mg Cap PO 220 mg BID CONNOR Administration
[2020-07-12] MEDS ORDERED: SODIUM CHLORIDE 0.9% 100 ML IV PRN (10:00)
--- NOTE | 2020-07-12 10:16 | Progress Note ---
Assessment and Plan tele reviewed - currently in AFib/AFlutter HR 120s. pt continues to intermittently require vasopressors. Cont amio. The patient has been seen in conjunction with Dr. Chavis who agrees with the assessment and plan of care. - Patient Problems (1) Acute respiratory failure with hypoxia Current Visit: Yes Status: Acute (2) Pneumonia due to COVID-19 virus Current Visit: Yes Status: Acute (3) Sepsis Current Visit: Yes Status: Acute Qualifiers: Severe sepsis acute organ dysfunction type: acute respiratory failure Severe sepsis shock status: with septic shock (4) Atrial fibrillation with rapid ventricular response Current Visit: Yes Status: Acute (5) Acute renal failure Current Visit: Yes Status: Acute (6) Elevated LFTs Current Visit: Yes Status: Acute (7) Anemia Current Visit: Yes Status: Acute Subjective Date of service: 07/12/20 Principal diagnosis: ARF; Septic Shock; COVID-19 PNA; Atrial fibrillation; Obesity Interval history: pt remains intubated, sedated. intermittently requiring vasopressor support. tele reviewed - currently in AFib/AFlutter HR 120s. Objective Last Vital Signs Temp 98.7 F 07/12/20 07:26 Pulse 128 H 07/12/20 09:45 Resp 22 07/12/20 09:45 BP 89/51 07/12/20 09:45 Pulse Ox 94 07/12/20 09:45 - Physical Examination General: Other (intubated, lethargic) Neck: Positive: neck supple Cardiac: Positive: irregularly irregular, S1/S2, Tachycardia Lungs: Positive: Decreased Breath Sounds, Oxygen, Ventilated Respirations Neuro: Positive: Other (intubated, lethargic) Abdomen: Positive: Soft Skin: Negative: Rash, Wound Extremities: Present: upper extr. pulses, lower extr. pulses, +1 Edema - Labs and Meds Lipids 07/12/20 Range/Units 04:00 Triglycerides 246 H (2-149) mg/dL CBC 07/12/20 Range/Units 03:40 WBC 24.3 H (4.5-11.0) K/mm3 RBC 2.83 L (3.65-5.03) M/mm3 Hgb 8.0 L (11.8-15.2) gm/dl Hct 24.9 L (35.5-45.6) % Plt Count 285 (140-440) K/mm3 Lymph # (Auto) 1.4 (1.2-5.4) K/mm3 [place] # (Auto) 1.8 H (0.0-0.8) K/mm3 Eos # (Auto) 0.7 H (0.0-0.4) K/mm3 Baso # (Auto) 0.1 (0.0-0.1) K/mm3 Comprehensive Metabolic Panel 07/12/20 Range/Units 03:40 Sodium 134 L (137-145) mmol/L Potassium 4.8 (3.6-5.0) mmol/L Chloride 95.5 L (98-107) mmol/L Carbon Dioxide 27 (22-30) mmol/L BUN 79 H (9-20) mg/dL Creatinine 3.7 H (0.8-1.3) mg/dL Glucose 127 H (75-100) mg/dL Calcium 7.8 L (8.4-10.2) mg/dL - Imaging and Cardiology EKG: report reviewed, image reviewed Echo: report reviewed (TDS, EF 55-60%. ) - Telemetry EKG Rhythm: Atrial Fibrillation - EKG Sinus rhythms and dysrhythmias: sinus tachycardia - Allied health notes Allied health notes reviewed: nursing
--- NOTE | 2020-07-12 12:31 | Progress Note ---
Assessment and Plan Acute hypoxemic respiratory failure due to COVID-19 Severe COVID infection Severe Sepsis with shock Bilateral pneumonia Acute kidney injury (GIRISH) with acute tubular necrosis (ATN) Elevated liver enzymes Obesity (Discussed care with his family extensively over the phone and answered their questions; explained the gravity of his illness and the likely need for a tracheostomy if he shows improvement) - complete taper off dexamethasone - repeat procalcitonin trending down - continue to follow clinically off AB's - nephrology input sincerely appreciated (for HD/UF tomorrow) - continue care as below otherwise; - therapeutic anticoagulation remains on hold - continue HD/UF per nephrology prescription for toxin and volume clearance - keep peep at 14 - continue daily SAT's & SBT's as tolerated - continue tube feeds and advance to goal rate as tolerated - continue HD/UF per nephrology team for toxin and volume clearance - continue bowel regimen - rate control per cardiology team for afib RVR - Continue to wean supplemental oxygen for O2 sats >92% - Monitor blood pressure closely while optimizing sedation,wean vasopressor support for MAP > 65 mmHg - Critical care prone positioning - VAP bundle addressed, aspiration precautions HOB >40 - continue lung protective strategies, permissive hypercapnic acceptable. - continue bronchodilators with pulmonary hygiene per RT - wean per pulmonary driven protocols otherwise - accuchecks with glycemic control per SSI (While critically ill target blood glucose of 140-180 mg/dL; avoid hypoglycemia) - sedation prn for target RASS -1 to -2 - continue enteral nutritional support at goal rate as tolerated - s/p antibiotics per ID recommendations - Monitor liver function test ,avoid hepatotoxic agents - azotemia per nephrology rec's - Avoid nephrotoxins, renally dose all medications, conservative fluid management - continue to avoid benzodiazepines, reduce the possibility of delirium, - prn analgesia per CPOT score - Maintenance of sleep-wake cycle, avoid delirium - Stress ulcer prophylaxis, Famotidine - PT/OT/ROM exercises - Mobility protocols for pressure ulcer prevention - CXR, ABG in am - CBC, CMP in am - Supportive transfusions to keep HgB >7g/dL - Monitor hemodynamics closely - continue other care per attending / other consultants COVID SPECIFIC INTERVENTIONS - continue steroids: Dexamethasone - continue with Remdesivir - monitor inflammatory markers - ferritin, D-dimer, CRP, LDH per facility protocol - continue anticoagulation per System Protocol based on d-dimer - continue contact and airborne isolation CONDITION: CRITICAL PROGNOSIS: GUARDED CODE STATUS: FULL CODE The high probability of a clinically significant, sudden or life-threatening deterioration of the [respiratory, cardiovascular, hematologic & neurologic] system(s) required my full and direct attention, intervention and personal management. The aggregate critical care time was [32] minutes without overlap. Time includes spent on; [x] Data Review and interpretation [x] Patient assessment and monitoring of vital signs [x] Documentation [x] Medication orders and management He was evaluated in the context of the global COVID-19 pandemic, which necessitated consideration that the patient might be at risk for infection with the virus that causes COVID-19. Institutional protocols and algorithms that pertain to the evaluation of patients at risk for COVID-19 are in a state of rapid change based on information released by regulatory bodies including the CDC and federal and state organizations. These policies and algorithms were followed during the patient's care in the ICU Please note that these policies, procedures and recommendations changed on a rapid basis. Subjective Date of service: 07/12/20 Principal diagnosis: ARF; Septic Shock; COVID-19 PNA; Atrial fibrillation; Obesity Interval history: Patient is seen today for: Ac hypoxemic respiratory failure; COVID-19; Severe Sepsis with shock; Zackery. pneumonia; GIRISH; Elevated liver enzymes; Obesity Seen and examined at bedside; 24hour events reviewed; nursing and respiratory care staff consulted; no adverse overnight events reported to me; resting in bed; remains on MVS; FiO2 down to 55%; AMS is persistent; weaned off Levophed; no gross bleeding; afebrile Objective Vital Signs - 12hr 07/12/20 07/12/20 07/12/20 00:45 01:00 01:15 Temperature Pulse Rate 95 H 98 H 84 Pulse Rate [ From Monitor] Respiratory 27 H 29 H 26 H Rate Blood Pressure 110/67 110/67 119/60 O2 Sat by Pulse 98 98 99 Oximetry 07/12/20 07/12/20 07/12/20 01:30 01:45 02:00 Temperature Pulse Rate 98 H 99 H 96 H Pulse Rate [ From Monitor] Respiratory 26 H 27 H 24 Rate Blood Pressure 117/75 122/67 122/67 O2 Sat by Pulse 99 99 98 Oximetry 07/12/20 07/12/20 07/12/20 02:15 02:30 02:45 Temperature Pulse Rate 98 H 93 H 97 H Pulse Rate [ From Monitor] Respiratory 25 H 25 H 26 H Rate Blood Pressure 115/64 120/64 119/70 O2 Sat by Pulse 98 98 98 Oximetry 07/12/20 07/12/20 07/12/20 03:00 03:15 03:30 Temperature Pulse Rate 91 H 100 H 100 H Pulse Rate [ From Monitor] Respiratory 27 H 27 H 24 Rate Blood Pressure 122/62 108/72 97/76 O2 Sat by Pulse 97 98 98 Oximetry 07/12/20 07/12/20 07/12/20 03:45 04:00 04:16 Temperature 97.8 F Pulse Rate 100 H 99 H 95 H Pulse Rate [ From Monitor] Respiratory 25 H 25 H 25 H Rate Blood Pressure 107/74 121/67 127/62 O2 Sat by Pulse 98 97 95 Oximetry 07/12/20 07/12/20 07/12/20 04:30 04:41 04:45 Temperature Pulse Rate 100 H 108 H 124 H Pulse Rate [ From Monitor] Respiratory 23 23 Rate Blood Pressure 127/62 115/74 130/70 O2 Sat by Pulse 95 96 95 Oximetry 07/12/20 07/12/20 07/12/20 05:00 05:15 05:30 Temperature Pulse Rate 94 H 96 H 102 H Pulse Rate [ From Monitor] Respiratory 25 H 25 H 18 Rate Blood Pressure 130/70 111/65 111/65 O2 Sat by Pulse 95 96 95 Oximetry 07/12/20 07/12/20 07/12/20 05:45 06:00 06:16 Temperature Pulse Rate 99 H 94 H 140 H Pulse Rate [ From Monitor] Respiratory 24 28 H 20 Rate Blood Pressure 113/73 114/63 129/61 O2 Sat by Pulse 97 96 98 Oximetry 07/12/20 07/12/20 07/12/20 06:30 06:45 07:00 Temperature Pulse Rate 91 H 98 H 103 H Pulse Rate [ From Monitor] Respiratory 22 24 26 H Rate Blood Pressure 110/66 117/72 117/72 O2 Sat by Pulse 96 97 97 Oximetry 07/12/20 07/12/20 07/12/20 07:15 07:26 07:30 Temperature 98.7 F Pulse Rate 98 H 99 H Pulse Rate [ From Monitor] Respiratory 24 26 H Rate Blood Pressure 122/66 116/56 O2 Sat by Pulse 97 97 Oximetry 0307/12/20 07/12/20 07:45 08:00 08:06 Temperature Pulse Rate 105 H 116 H 106 H Pulse Rate [ 106 H From Monitor] Respiratory 24 26 H Rate Blood Pressure 118/53 120/67 120/67 O2 Sat by Pulse 97 97 99 Oximetry 07/12/20 07/12/20 07/12/20 08:15 08:30 08:45 Temperature Pulse Rate 102 H 104 H 103 H Pulse Rate [ From Monitor] Respiratory 26 H 27 H 24 Rate Blood Pressure 127/72 118/63 126/64 O2 Sat by Pulse 97 97 96 Oximetry 07/12/20 07/12/20 07/12/20 09:00 09:15 09:30 Temperature Pulse Rate 109 H 104 H 109 H Pulse Rate [ From Monitor] Respiratory 22 26 H 22 Rate Blood Pressure 126/64 104/62 104/63 O2 Sat by Pulse 96 96 96 Oximetry 07/12/20 07/12/20 07/12/20 09:45 10:00 10:15 Temperature Pulse Rate 128 H 117 H 108 H Pulse Rate [ From Monitor] Respiratory 22 13 16 Rate Blood Pressure 89/51 88/54 81/57 O2 Sat by Pulse 94 92 95 Oximetry 07/12/20 07/12/20 07/12/20 10:30 10:45 11:00 Temperature Pulse Rate 108 H 112 H 109 H Pulse Rate [ From Monitor] Respiratory 12 25 H 14 Rate Blood Pressure 90/54 99/60 104/57 O2 Sat by Pulse 94 94 95 Oximetry 07/12/20 07/12/20 07/12/20 11:15 11:30 11:37 Temperature Pulse Rate 105 H 113 H 111 H Pulse Rate [ From Monitor] Respiratory 22 19 Rate Blood Pressure 97/56 96/62 96/62 O2 Sat by Pulse 94 96 96 Oximetry 07/12/20 07/12/20 07/12/20 11:45 12:00 12:03 Temperature 98.3 F Pulse Rate 102 H 98 H Pulse Rate [ From Monitor] Respiratory 17 24 Rate Blood Pressure 85/61 85/61 O2 Sat by Pulse 95 96 Oximetry 07/12/20 12:15 Temperature Pulse Rate 101 H Pulse Rate [ From Monitor] Respiratory 25 H Rate Blood Pressure 113/69 O2 Sat by Pulse 97 Oximetry Constitutional: appears uncomfortable, other (morbidly obese, atraumatic, normocephalic, mild resp distress, orally intubated) Eyes: non-icteric ENT: oropharynx moist, other (ETT 24 cm TROY + blood crusted lips) Neck: supple, no lymphadenopathy, other (Large , short neck) Effort: mildly labored Ascultation: Bilateral: diminished breath sounds, rhonchi Percussion: Bilateral: not dull Cardiovascular: irregular rhythm, other (S1,S2) Gastrointestinal: normoactive bowel sounds, non-distended (protuberant), other (OG Tube) Integumentary: rash, other (Femoral CVC, Newell catheter) Extremities: pink and warm, pulses normal, no ischemia or petechiae, edema (trace to 1+) Neurologic: non-focal exam (grossly), pupils equal and round, other (unable to assess, sedated) Psychiatric: other (unable to assess, sedated) CBC and BMP: 07/13/20 08:48 07/13/20 06:59 ABG, PT/INR, D-dimer: ABG ABG pH 7.340 (7.320-7.450) 07/12/20 03:20 POC ABG pCO2 49.1 mmHg (32.0-48.0) H 07/12/20 03:20 ABG pCO2 56.4 mm Hg 07/05/20 04:30 POC ABG pO2 130.3 mmHg (83-108) H 07/12/20 03:20 ABG pO2 151.9 mm Hg (80.0-90.0) H 07/05/20 04:30 POC ABG HCO3 25.9 07/12/20 03:20 ABG O2 Saturation 98.7 % (95.0-99.0) 07/05/20 04:30 PT/INR, D-dimer PT 17.4 Sec. (12.2-14.9) H 06/26/20 05:47 INR 1.44 (0.87-1.13) H 06/26/20 05:47 D-Dimer 6608.00 ng/mlDDU (0-234) H 07/03/20 14:50 Abnormal lab findings: Abnormal Labs 06/17/20 06/17/20 06/17/20 12:33 12:33 12:33 WBC 19.5 H RBC 5.18 H Hgb 15.5 H Hct MCHC RDW Lymph % (Auto) 3.8 L Faulk % (Auto) Lymph # (Auto) 0.7 L Faulk # (Auto) Eos # (Auto) Seg Neutrophils % Seg Neuts % (Manual) 99.0 H Lymphocytes % (Manual) 1.0 L Monocytes % (Manual) Nucleated RBC % Seg Neutrophils # 18.2 H Seg Neutrophils # Man 19.3 H Lymphocytes # (Manual) 0.2 L Monocytes # (Manual) Eosinophils # (Manual) PT 16.5 H INR 1.33 H APTT D-Dimer 1025.04 H Heparin Anti-Xa Level ABG pH POC ABG pCO2 POC ABG pO2 ABG pO2 ABG HCO3 ABG Hemoglobin ABG Oxyhemoglobin ABG Sodium ABG Potassium ABG Chloride ABG Glucose Carboxyhemoglobin Sodium 130 L Potassium 3.4 L Chloride 95.0 L Carbon Dioxide BUN 21 H Creatinine Glucose 137 H POC Glucose Lactic Acid Calcium 7.9 L Phosphorus Magnesium Ferritin Direct Bilirubin AST 84 H ALT 67 H Lactate Dehydrogenase 437 H Total Creatine Kinase 310 H C-Reactive Protein 27.90 H Total Protein Albumin 2.9 L Triglycerides Arterial Blood Glucose Arterial Blood Ionized Calcium Urine Creatinine Urine Chloride Vancomycin Trough Coronavirus (PCR) Crossmatch 06/17/20 06/17/20 06/17/20 12:33 12:33 14:48 WBC RBC Hgb Hct MCHC RDW Lymph % (Auto) Faulk % (Auto) Lymph # (Auto) Faulk # (Auto) Eos # (Auto) Seg Neutrophils % Seg Neuts % (Manual) Lymphocytes % (Manual) Monocytes % (Manual) Nucleated RBC % Seg Neutrophils # Seg Neutrophils # Man Lymphocytes # (Manual) Monocytes # (Manual) Eosinophils # (Manual) PT INR APTT D-Dimer Heparin Anti-Xa Level ABG pH POC ABG pCO2 POC ABG pO2 ABG pO2 ABG HCO3 ABG Hemoglobin ABG Oxyhemoglobin ABG Sodium ABG Potassium ABG Chloride ABG Glucose Carboxyhemoglobin Sodium Potassium Chloride Carbon Dioxide BUN Creatinine Glucose POC Glucose Lactic Acid 2.50 H* 2.20 H* Calcium Phosphorus Magnesium Ferritin 2297.0 H Direct Bilirubin AST ALT Lactate Dehydrogenase Total Creatine Kinase C-Reactive Protein Total Protein Albumin Triglycerides Arterial Blood Glucose Arterial Blood Ionized Calcium Urine Creatinine Urine Chloride Vancomycin Trough Coronavirus (PCR) Crossmatch 06/17/20 06/17/20 06/17/20 14:48 14:48 14:48 WBC RBC Hgb Hct MCHC RDW Lymph % (Auto) Faulk % (Auto) Lymph # (Auto) Faulk # (Auto) Eos # (Auto) Seg Neutrophils % Seg Neuts % (Manual) Lymphocytes % (Manual) Monocytes % (Manual) Nucleated RBC % Seg Neutrophils # Seg Neutrophils # Man Lymphocytes # (Manual) Monocytes # (Manual) Eosinophils # (Manual) PT INR APTT D-Dimer 939.89 H Heparin Anti-Xa Level ABG pH POC ABG pCO2 POC ABG pO2 ABG pO2 ABG HCO3 ABG Hemoglobin ABG Oxyhemoglobin ABG Sodium ABG Potassium ABG Chloride ABG Glucose Carboxyhemoglobin Sodium Potassium Chloride Carbon Dioxide BUN Creatinine Glucose 141 H POC Glucose Lactic Acid Calcium Phosphorus Magnesium Ferritin > 2000.0 H Direct Bilirubin AST ALT Lactate Dehydrogenase 503 H Total Creatine Kinase C-Reactive Protein 24.70 H Total Protein Albumin Triglycerides Arterial Blood Glucose Arterial Blood Ionized Calcium Urine Creatinine Urine Chloride Vancomycin Trough Coronavirus (PCR) Crossmatch 06/17/20 06/17/20 06/17/20 16:54 19:39 23:43 WBC RBC Hgb Hct MCHC RDW Lymph % (Auto) Faulk % (Auto) Lymph # (Auto) Faulk # (Auto) Eos # (Auto) Seg Neutrophils % Seg Neuts % (Manual) Lymphocytes % (Manual) Monocytes % (Manual) Nucleated RBC % Seg Neutrophils # Seg Neutrophils # Man Lymphocytes # (Manual) Monocytes # (Manual) Eosinophils # (Manual) PT INR APTT D-Dimer Heparin Anti-Xa Level ABG pH 7.571 H POC ABG pCO2 24.3 L POC ABG pO2 41.6 L ABG pO2 ABG HCO3 ABG Hemoglobin ABG Oxyhemoglobin 84.0 L ABG Sodium 131.0 L ABG Potassium ABG Chloride ABG Glucose 163 H Carboxyhemoglobin Sodium Potassium Chloride Carbon Dioxide BUN Creatinine Glucose POC Glucose 185 H Lactic Acid 2.10 H* Calcium Phosphorus Magnesium Ferritin Direct Bilirubin AST ALT Lactate Dehydrogenase Total Creatine Kinase C-Reactive Protein Total Protein Albumin Triglycerides Arterial Blood Glucose 163 H Arterial Blood Ionized Calcium 4.4 L Urine Creatinine Urine Chloride Vancomycin Trough Coronavirus (PCR) Crossmatch 06/18/20 06/18/20 06/18/20 00:17 00:23 03:55 WBC RBC Hgb Hct MCHC RDW Lymph % (Auto) Faulk % (Auto) Lymph # (Auto) Faulk # (Auto) Eos # (Auto) Seg Neutrophils % Seg Neuts % (Manual) Lymphocytes % (Manual) Monocytes % (Manual) Nucleated RBC % Seg Neutrophils # Seg Neutrophils # Man Lymphocytes # (Manual) Monocytes # (Manual) Eosinophils # (Manual) PT INR APTT D-Dimer Heparin Anti-Xa Level ABG pH POC ABG pCO2 POC ABG pO2 56.5 L 48.3 L ABG pO2 ABG HCO3 ABG Hemoglobin ABG Oxyhemoglobin 86.3 L 81.7 L ABG Sodium 132.9 L 131.0 L ABG Potassium ABG Chloride ABG Glucose 189 H 161 H Carboxyhemoglobin 0.4 L Sodium Potassium Chloride Carbon Dioxide BUN Creatinine Glucose POC Glucose Lactic Acid 3.80 H* Calcium Phosphorus Magnesium Ferritin Direct Bilirubin AST ALT Lactate Dehydrogenase Total Creatine Kinase C-Reactive Protein Total Protein Albumin Triglycerides Arterial Blood Glucose 189 H 161 H Arterial Blood Ionized Calcium 4.3 L 4.2 L Urine Creatinine Urine Chloride Vancomycin Trough Coronavirus (PCR) Crossmatch 06/18/20 06/18/20 06/18/20 05:39 05:39 05:39 WBC 26.2 H RBC Hgb Hct MCHC RDW Lymph % (Auto) Faulk % (Auto) Lymph # (Auto) Faulk # (Auto) Eos # (Auto) Seg Neutrophils % Seg Neuts % (Manual) 90.0 H Lymphocytes % (Manual) 5.0 L Monocytes % (Manual) Nucleated RBC % Seg Neutrophils # Seg Neutrophils # Man 23.6 H Lymphocytes # (Manual) Monocytes # (Manual) 1.3 H Eosinophils # (Manual) PT INR APTT D-Dimer Heparin Anti-Xa Level ABG pH POC ABG pCO2 POC ABG pO2 ABG pO2 ABG HCO3 ABG Hemoglobin ABG Oxyhemoglobin ABG Sodium ABG Potassium ABG Chloride ABG Glucose Carboxyhemoglobin Sodium 135 L Potassium Chloride 97.5 L Carbon Dioxide 21 L BUN 39 H Creatinine 1.7 H D Glucose 168 H POC Glucose Lactic Acid 3.40 H* Calcium 7.2 L Phosphorus Magnesium Ferritin Direct Bilirubin AST ALT Lactate Dehydrogenase Total Creatine Kinase C-Reactive Protein Total Protein Albumin Triglycerides Arterial Blood Glucose Arterial Blood Ionized Calcium Urine Creatinine Urine Chloride Vancomycin Trough Coronavirus (PCR) Crossmatch 06/18/20 06/18/20 06/18/20 07:24 09:00 10:10 WBC RBC Hgb Hct MCHC RDW Lymph % (Auto) Faulk % (Auto) Lymph # (Auto) Faulk # (Auto) Eos # (Auto) Seg Neutrophils % Seg Neuts % (Manual) Lymphocytes % (Manual) Monocytes % (Manual) Nucleated RBC % Seg Neutrophils # Seg Neutrophils # Man Lymphocytes # (Manual) Monocytes # (Manual) Eosinophils # (Manual) PT INR APTT D-Dimer Heparin Anti-Xa Level ABG pH POC ABG pCO2 POC ABG pO2 ABG pO2 ABG HCO3 ABG Hemoglobin ABG Oxyhemoglobin ABG Sodium ABG Potassium ABG Chloride ABG Glucose Carboxyhemoglobin Sodium Potassium Chloride Carbon Dioxide BUN Creatinine Glucose POC Glucose Lactic Acid 2.90 H* 3.20 H* Calcium Phosphorus Magnesium Ferritin Direct Bilirubin AST ALT Lactate Dehydrogenase Total Creatine Kinase C-Reactive Protein Total Protein Albumin Triglycerides Arterial Blood Glucose Arterial Blood Ionized Calcium Urine Creatinine Urine Chloride Vancomycin Trough Coronavirus (PCR) Positive A Crossmatch 06/18/20 06/18/20 06/18/20 11:58 14:43 15:00 WBC RBC Hgb Hct MCHC RDW Lymph % (Auto) Faulk % (Auto) Lymph # (Auto) Faulk # (Auto) Eos # (Auto) Seg Neutrophils % Seg Neuts % (Manual) Lymphocytes % (Manual) Monocytes % (Manual) Nucleated RBC % Seg Neutrophils # Seg Neutrophils # Man Lymphocytes # (Manual) Monocytes # (Manual) Eosinophils # (Manual) PT INR APTT D-Dimer Heparin Anti-Xa Level ABG pH 7.303 L POC ABG pCO2 POC ABG pO2 82.3 L ABG pO2 ABG HCO3 ABG Hemoglobin ABG Oxyhemoglobin ABG Sodium 135.3 L ABG Potassium ABG Chloride ABG Glucose 215 H Carboxyhemoglobin 0.3 L Sodium Potassium Chloride Carbon Dioxide BUN Creatinine Glucose POC Glucose 209 H Lactic Acid Calcium Phosphorus Magnesium Ferritin Direct Bilirubin AST ALT Lactate Dehydrogenase Total Creatine Kinase C-Reactive Protein Total Protein Albumin Triglycerides Arterial Blood Glucose 215 H Arterial Blood Ionized Calcium 4.2 L Urine Creatinine 192.4 H Urine Chloride 31.1 L Vancomycin Trough Coronavirus (PCR) Crossmatch 06/18/20 06/18/20 06/18/20 17:16 19:44 20:33 WBC RBC Hgb Hct MCHC RDW Lymph % (Auto) Faulk % (Auto) Lymph # (Auto) Faulk # (Auto) Eos # (Auto) Seg Neutrophils % Seg Neuts % (Manual) Lymphocytes % (Manual) Monocytes % (Manual) Nucleated RBC % Seg Neutrophils # Seg Neutrophils # Man Lymphocytes # (Manual) Monocytes # (Manual) Eosinophils # (Manual) PT INR APTT D-Dimer Heparin Anti-Xa Level ABG pH POC ABG pCO2 POC ABG pO2 ABG pO2 ABG HCO3 ABG Hemoglobin ABG Oxyhemoglobin ABG Sodium ABG Potassium ABG Chloride ABG Glucose Carboxyhemoglobin Sodium Potassium Chloride Carbon Dioxide BUN Creatinine Glucose POC Glucose 182 H Lactic Acid 3.00 H* Calcium Phosphorus Magnesium 2.70 H Ferritin Direct Bilirubin AST ALT Lactate Dehydrogenase Total Creatine Kinase C-Reactive Protein Total Protein Albumin Triglycerides Arterial Blood Glucose Arterial Blood Ionized Calcium Urine Creatinine Urine Chloride Vancomycin Trough Coronavirus (PCR) Crossmatch 06/18/20 06/19/20 06/19/20 23:43 04:00 04:00 WBC 31.6 H RBC Hgb Hct MCHC RDW Lymph % (Auto) Faulk % (Auto) Lymph # (Auto) Faulk # (Auto) Eos # (Auto) Seg Neutrophils % Seg Neuts % (Manual) 98.0 H Lymphocytes % (Manual) 0.5 L Monocytes % (Manual) Nucleated RBC % Seg Neutrophils # Seg Neutrophils # Man 31.0 H Lymphocytes # (Manual) 0.2 L Monocytes # (Manual) Eosinophils # (Manual) PT INR APTT D-Dimer Heparin Anti-Xa Level ABG pH POC ABG pCO2 POC ABG pO2 ABG pO2 ABG HCO3 ABG Hemoglobin ABG Oxyhemoglobin ABG Sodium ABG Potassium ABG Chloride ABG Glucose Carboxyhemoglobin Sodium Potassium Chloride Carbon Dioxide BUN 56 H Creatinine 1.6 H Glucose 176 H POC Glucose 149 H Lactic Acid Calcium 7.0 L Phosphorus Magnesium Ferritin Direct Bilirubin AST 244 H ALT 159 H Lactate Dehydrogenase Total Creatine Kinase C-Reactive Protein Total Protein 4.9 L D Albumin 2.5 L Triglycerides Arterial Blood Glucose Arterial Blood Ionized Calcium Urine Creatinine Urine Chloride Vancomycin Trough Coronavirus (PCR) Crossmatch 06/19/20 06/19/20 06/19/20 04:00 05:44 11:42 WBC RBC Hgb Hct MCHC RDW Lymph % (Auto) Faulk % (Auto) Lymph # (Auto) Faulk # (Auto) Eos # (Auto) Seg Neutrophils % Seg Neuts % (Manual) Lymphocytes % (Manual) Monocytes % (Manual) Nucleated RBC % Seg Neutrophils # Seg Neutrophils # Man Lymphocytes # (Manual) Monocytes # (Manual) Eosinophils # (Manual) PT INR APTT D-Dimer Heparin Anti-Xa Level ABG pH 7.265 L POC ABG pCO2 51.8 H POC ABG pO2 65.1 L ABG pO2 ABG HCO3 ABG Hemoglobin ABG Oxyhemoglobin ABG Sodium ABG Potassium ABG Chloride ABG Glucose 184 H Carboxyhemoglobin Sodium Potassium Chloride Carbon Dioxide BUN Creatinine Glucose POC Glucose 156 H 191 H Lactic Acid Calcium Phosphorus Magnesium Ferritin Direct Bilirubin AST ALT Lactate Dehydrogenase Total Creatine Kinase C-Reactive Protein Total Protein Albumin Triglycerides Arterial Blood Glucose 184 H Arterial Blood Ionized Calcium 4.3 L Urine Creatinine Urine Chloride Vancomycin Trough Coronavirus (PCR) Crossmatch 06/19/20 06/19/20 06/19/20 12:30 17:16 18:36 WBC RBC Hgb Hct MCHC RDW Lymph % (Auto) Faulk % (Auto) Lymph # (Auto) Faulk # (Auto) Eos # (Auto) Seg Neutrophils % Seg Neuts % (Manual) Lymphocytes % (Manual) Monocytes % (Manual) Nucleated RBC % Seg Neutrophils # Seg Neutrophils # Man Lymphocytes # (Manual) Monocytes # (Manual) Eosinophils # (Manual) PT 16.4 H INR 1.32 H APTT D-Dimer Heparin Anti-Xa Level ABG pH 7.088 L POC ABG pCO2 78.1 H POC ABG pO2 208.3 H ABG pO2 ABG HCO3 ABG Hemoglobin ABG Oxyhemoglobin 98.3 H ABG Sodium ABG Potassium 5.0 H ABG Chloride ABG Glucose 182 H Carboxyhemoglobin 0.4 L Sodium Potassium Chloride Carbon Dioxide BUN Creatinine Glucose POC Glucose 154 H Lactic Acid Calcium Phosphorus Magnesium Ferritin Direct Bilirubin AST ALT Lactate Dehydrogenase Total Creatine Kinase C-Reactive Protein Total Protein Albumin Triglycerides Arterial Blood Glucose 182 H Arterial Blood Ionized Calcium 4.3 L Urine Creatinine Urine Chloride Vancomycin Trough Coronavirus (PCR) Crossmatch 06/19/20 06/20/20 06/20/20 23:32 03:00 05:19 WBC RBC Hgb Hct MCHC RDW Lymph % (Auto) Faulk % (Auto) Lymph # (Auto) Faulk # (Auto) Eos # (Auto) Seg Neutrophils % Seg Neuts % (Manual) Lymphocytes % (Manual) Monocytes % (Manual) Nucleated RBC % Seg Neutrophils # Seg Neutrophils # Man Lymphocytes # (Manual) Monocytes # (Manual) Eosinophils # (Manual) PT INR APTT D-Dimer Heparin Anti-Xa Level 0.77 H ABG pH POC ABG pCO2 POC ABG pO2 ABG pO2 ABG HCO3 ABG Hemoglobin ABG Oxyhemoglobin ABG Sodium ABG Potassium ABG Chloride ABG Glucose Carboxyhemoglobin Sodium Potassium Chloride Carbon Dioxide BUN Creatinine Glucose POC Glucose 201 H 190 H Lactic Acid Calcium Phosphorus Magnesium Ferritin Direct Bilirubin AST ALT Lactate Dehydrogenase Total Creatine Kinase C-Reactive Protein Total Protein Albumin Triglycerides Arterial Blood Glucose Arterial Blood Ionized Calcium Urine Creatinine Urine Chloride Vancomycin Trough Coronavirus (PCR) Crossmatch 06/20/20 06/20/20 06/20/20 08:25 08:25 11:36 WBC RBC Hgb Hct MCHC RDW Lymph % (Auto) Faulk % (Auto) Lymph # (Auto) Faulk # (Auto) Eos # (Auto) Seg Neutrophils % Seg Neuts % (Manual) Lymphocytes % (Manual) Monocytes % (Manual) Nucleated RBC % Seg Neutrophils # Seg Neutrophils # Man Lymphocytes # (Manual) Monocytes # (Manual) Eosinophils # (Manual) PT INR APTT D-Dimer Heparin Anti-Xa Level ABG pH POC ABG pCO2 POC ABG pO2 ABG pO2 ABG HCO3 ABG Hemoglobin ABG Oxyhemoglobin ABG Sodium ABG Potassium ABG Chloride ABG Glucose Carboxyhemoglobin Sodium 135 L Potassium 5.4 H Chloride 109.2 H Carbon Dioxide 19 L BUN 68 H Creatinine 2.5 H D Glucose 201 H POC Glucose 184 H Lactic Acid Calcium 5.5 L* D Phosphorus Magnesium Ferritin Direct Bilirubin AST 123 H ALT 86 H Lactate Dehydrogenase Total Creatine Kinase C-Reactive Protein Total Protein 4.6 L Albumin 1.5 L Triglycerides Arterial Blood Glucose Arterial Blood Ionized Calcium Urine Creatinine Urine Chloride Vancomycin Trough 22.7 H Coronavirus (PCR) Crossmatch 06/20/20 06/20/20 06/20/20 11:40 17:28 20:00 WBC RBC Hgb Hct MCHC RDW Lymph % (Auto) Faulk % (Auto) Lymph # (Auto) Faulk # (Auto) Eos # (Auto) Seg Neutrophils % Seg Neuts % (Manual) Lymphocytes % (Manual) Monocytes % (Manual) Nucleated RBC % Seg Neutrophils # Seg Neutrophils # Man Lymphocytes # (Manual) Monocytes # (Manual) Eosinophils # (Manual) PT INR APTT D-Dimer Heparin Anti-Xa Level 0.89 H ABG pH 7.099 L POC ABG pCO2 61.1 H POC ABG pO2 ABG pO2 ABG HCO3 ABG Hemoglobin ABG Oxyhemoglobin ABG Sodium ABG Potassium 5.0 H ABG Chloride 111.0 H ABG Glucose 200 H Carboxyhemoglobin 0.4 L Sodium Potassium Chloride Carbon Dioxide BUN Creatinine Glucose POC Glucose 165 H Lactic Acid Calcium Phosphorus Magnesium Ferritin Direct Bilirubin AST ALT Lactate Dehydrogenase Total Creatine Kinase C-Reactive Protein Total Protein Albumin Triglycerides Arterial Blood Glucose 200 H Arterial Blood Ionized Calcium 4.2 L Urine Creatinine Urine Chloride Vancomycin Trough Coronavirus (PCR) Crossmatch 06/20/20 06/21/20 06/21/20 23:29 05:00 05:20 WBC RBC Hgb Hct MCHC RDW Lymph % (Auto) [place] % (Auto) Lymph # (Auto) [place] # (Auto) Eos # (Auto) Seg Neutrophils % Seg Neuts % (Manual) Lymphocytes % (Manual) Monocytes % (Manual) Nucleated RBC % Seg Neutrophils # Seg Neutrophils # Man Lymphocytes # (Manual) Monocytes # (Manual) Eosinophils # (Manual) PT INR APTT D-Dimer Heparin Anti-Xa Level ABG pH POC ABG pCO2 POC ABG pO2 ABG pO2 ABG HCO3 ABG Hemoglobin ABG Oxyhemoglobin ABG Sodium ABG Potassium ABG Chloride ABG Glucose Carboxyhemoglobin Sodium Potassium Chloride 112.0 H Carbon Dioxide 20 L BUN 92 H Creatinine 3.9 H D Glucose 214 H POC Glucose 145 H 191 H Lactic Acid Calcium 6.5 L D Phosphorus Magnesium Ferritin Direct Bilirubin AST 98 H ALT 84 H Lactate Dehydrogenase Total Creatine Kinase C-Reactive Protein Total Protein 4.6 L Albumin 2.1 L Triglycerides 180 H Arterial Blood Glucose Arterial Blood Ionized Calcium Urine Creatinine Urine Chloride Vancomycin Trough Coronavirus (PCR) Crossmatch 06/21/20 06/21/20 06/21/20 08:56 11:12 12:43 WBC RBC Hgb Hct MCHC RDW Lymph % (Auto) [place] % (Auto) Lymph # (Auto) [place] # (Auto) Eos # (Auto) Seg Neutrophils % Seg Neuts % (Manual) Lymphocytes % (Manual) Monocytes % (Manual) Nucleated RBC % Seg Neutrophils # Seg Neutrophils # Man Lymphocytes # (Manual) Monocytes # (Manual) Eosinophils # (Manual) PT INR APTT D-Dimer Heparin Anti-Xa Level 0.28 L ABG pH 7.184 L POC ABG pCO2 48.3 H POC ABG pO2 172.1 H ABG pO2 ABG HCO3 ABG Hemoglobin ABG Oxyhemoglobin 98.7 H ABG Sodium ABG Potassium 4.9 H ABG Chloride 112.0 H ABG Glucose 196 H Carboxyhemoglobin 0.2 L Sodium Potassium Chloride Carbon Dioxide BUN Creatinine Glucose POC Glucose 177 H Lactic Acid Calcium Phosphorus Magnesium Ferritin Direct Bilirubin AST ALT Lactate Dehydrogenase Total Creatine Kinase C-Reactive Protein Total Protein Albumin Triglycerides Arterial Blood Glucose 196 H Arterial Blood Ionized Calcium 4.1 L Urine Creatinine Urine Chloride Vancomycin Trough Coronavirus (PCR) Crossmatch 06/21/20 06/21/20 06/22/20 16:31 Unknown 00:12 WBC RBC Hgb Hct MCHC RDW Lymph % (Auto) [place] % (Auto) Lymph # (Auto) [place] # (Auto) Eos # (Auto) Seg Neutrophils % Seg Neuts % (Manual) Lymphocytes % (Manual) Monocytes % (Manual) Nucleated RBC % Seg Neutrophils # Seg Neutrophils # Man Lymphocytes # (Manual) Monocytes # (Manual) Eosinophils # (Manual) PT INR APTT D-Dimer Heparin Anti-Xa Level 0.78 H ABG pH POC ABG pCO2 POC ABG pO2 ABG pO2 ABG HCO3 ABG Hemoglobin ABG Oxyhemoglobin ABG Sodium ABG Potassium ABG Chloride ABG Glucose Carboxyhemoglobin Sodium Potassium Chloride Carbon Dioxide BUN Creatinine Glucose POC Glucose 150 H 173 H Lactic Acid Calcium Phosphorus Magnesium Ferritin Direct Bilirubin AST ALT Lactate Dehydrogenase Total Creatine Kinase C-Reactive Protein Total Protein Albumin Triglycerides Arterial Blood Glucose Arterial Blood Ionized Calcium Urine Creatinine Urine Chloride Vancomycin Trough Coronavirus (PCR) Crossmatch 06/22/20 06/22/20 06/22/20 04:00 05:04 05:30 WBC 33.9 H RBC Hgb 11.7 L Hct 35.2 L MCHC RDW 15.8 H Lymph % (Auto) [place] % (Auto) Lymph # (Auto) [place] # (Auto) Eos # (Auto) Seg Neutrophils % Seg Neuts % (Manual) 93.0 H Lymphocytes % (Manual) 5.0 L Monocytes % (Manual) Nucleated RBC % Seg Neutrophils # Seg Neutrophils # Man 31.5 H Lymphocytes # (Manual) Monocytes # (Manual) Eosinophils # (Manual) PT INR APTT D-Dimer Heparin Anti-Xa Level ABG pH 7.169 L POC ABG pCO2 POC ABG pO2 ABG pO2 ABG HCO3 ABG Hemoglobin ABG Oxyhemoglobin ABG Sodium ABG Potassium 5.1 H ABG Chloride 112.0 H ABG Glucose 186 H Carboxyhemoglobin 0.3 L Sodium Potassium Chloride Carbon Dioxide BUN Creatinine Glucose POC Glucose 161 H Lactic Acid Calcium Phosphorus Magnesium Ferritin Direct Bilirubin AST ALT Lactate Dehydrogenase Total Creatine Kinase C-Reactive Protein Total Protein Albumin Triglycerides Arterial Blood Glucose 186 H Arterial Blood Ionized Calcium 4.1 L Urine Creatinine Urine Chloride Vancomycin Trough Coronavirus (PCR) Crossmatch 06/22/20 06/22/20 06/22/20 05:30 11:39 13:27 WBC RBC Hgb Hct MCHC RDW Lymph % (Auto) [place] % (Auto) Lymph # (Auto) [place] # (Auto) Eos # (Auto) Seg Neutrophils % Seg Neuts % (Manual) Lymphocytes % (Manual) Monocytes % (Manual) Nucleated RBC % Seg Neutrophils # Seg Neutrophils # Man Lymphocytes # (Manual) Monocytes # (Manual) Eosinophils # (Manual) PT INR APTT D-Dimer Heparin Anti-Xa Level ABG pH POC ABG pCO2 POC ABG pO2 ABG pO2 ABG HCO3 ABG Hemoglobin ABG Oxyhemoglobin ABG Sodium ABG Potassium ABG Chloride ABG Glucose Carboxyhemoglobin Sodium Potassium 5.7 H Chloride 111.3 H Carbon Dioxide 18 L BUN 112 H Creatinine 5.0 H Glucose 173 H POC Glucose 172 H 176 H Lactic Acid Calcium 6.7 L Phosphorus Magnesium Ferritin Direct Bilirubin AST ALT Lactate Dehydrogenase Total Creatine Kinase C-Reactive Protein Total Protein Albumin Triglycerides Arterial Blood Glucose Arterial Blood Ionized Calcium Urine Creatinine Urine Chloride Vancomycin Trough Coronavirus (PCR) Crossmatch 06/22/20 06/22/20 06/22/20 14:37 17:00 17:40 WBC RBC Hgb Hct MCHC RDW Lymph % (Auto) [place] % (Auto) Lymph # (Auto) [place] # (Auto) Eos # (Auto) Seg Neutrophils % Seg Neuts % (Manual) Lymphocytes % (Manual) Monocytes % (Manual) Nucleated RBC % Seg Neutrophils # Seg Neutrophils # Man Lymphocytes # (Manual) Monocytes # (Manual) Eosinophils # (Manual) PT INR APTT D-Dimer Heparin Anti-Xa Level 1.32 H ABG pH POC ABG pCO2 POC ABG pO2 ABG pO2 ABG HCO3 ABG Hemoglobin ABG Oxyhemoglobin ABG Sodium ABG Potassium ABG Chloride ABG Glucose Carboxyhemoglobin Sodium Potassium Chloride Carbon Dioxide BUN Creatinine Glucose POC Glucose 171 H Lactic Acid Calcium Phosphorus Magnesium Ferritin Direct Bilirubin AST ALT Lactate Dehydrogenase Total Creatine Kinase C-Reactive Protein 5.30 H Total Protein Albumin Triglycerides Arterial Blood Glucose Arterial Blood Ionized Calcium Urine Creatinine Urine Chloride Vancomycin Trough Coronavirus (PCR) Crossmatch 06/22/20 06/23/20 06/23/20 23:36 02:13 02:41 WBC RBC Hgb Hct MCHC RDW Lymph % (Auto) [place] % (Auto) Lymph # (Auto) [place] # (Auto) Eos # (Auto) Seg Neutrophils % Seg Neuts % (Manual) Lymphocytes % (Manual) Monocytes % (Manual) Nucleated RBC % Seg Neutrophils # Seg Neutrophils # Man Lymphocytes # (Manual) Monocytes # (Manual) Eosinophils # (Manual) PT INR APTT D-Dimer Heparin Anti-Xa Level 0.21 L ABG pH 7.318 L POC ABG pCO2 POC ABG pO2 157.5 H ABG pO2 ABG HCO3 ABG Hemoglobin ABG Oxyhemoglobin ABG Sodium 135.6 L ABG Potassium 4.6 H ABG Chloride 110.0 H ABG Glucose 169 H Carboxyhemoglobin Sodium Potassium Chloride Carbon Dioxide BUN Creatinine Glucose POC Glucose 155 H Lactic Acid Calcium Phosphorus Magnesium Ferritin Direct Bilirubin AST ALT Lactate Dehydrogenase Total Creatine Kinase C-Reactive Protein Total Protein Albumin Triglycerides Arterial Blood Glucose 169 H Arterial Blood Ionized Calcium Urine Creatinine Urine Chloride Vancomycin Trough Coronavirus (PCR) Crossmatch 06/23/20 06/23/20 06/23/20 04:00 04:00 05:24 WBC 27.4 H RBC Hgb 11.3 L Hct 33.8 L MCHC RDW Lymph % (Auto) [place] % (Auto) Lymph # (Auto) [place] # (Auto) Eos # (Auto) Seg Neutrophils % Seg Neuts % (Manual) 93.0 H Lymphocytes % (Manual) 1.0 L Monocytes % (Manual) Nucleated RBC % 1.0 H Seg Neutrophils # Seg Neutrophils # Man 25.5 H Lymphocytes # (Manual) 0.3 L Monocytes # (Manual) 1.1 H Eosinophils # (Manual) PT INR APTT D-Dimer Heparin Anti-Xa Level ABG pH POC ABG pCO2 POC ABG pO2 ABG pO2 ABG HCO3 ABG Hemoglobin ABG Oxyhemoglobin ABG Sodium ABG Potassium ABG Chloride ABG Glucose Carboxyhemoglobin Sodium Potassium Chloride 107.6 H Carbon Dioxide 20 L BUN 100 H Creatinine 4.7 H Glucose 168 H POC Glucose 151 H Lactic Acid Calcium Phosphorus Magnesium Ferritin Direct Bilirubin AST ALT Lactate Dehydrogenase Total Creatine Kinase C-Reactive Protein Total Protein Albumin Triglycerides Arterial Blood Glucose Arterial Blood Ionized Calcium Urine Creatinine Urine Chloride Vancomycin Trough Coronavirus (PCR) Crossmatch 06/23/20 06/23/20 06/23/20 11:30 17:18 23:50 WBC RBC Hgb Hct MCHC RDW Lymph % (Auto) [place] % (Auto) Lymph # (Auto) [place] # (Auto) Eos # (Auto) Seg Neutrophils % Seg Neuts % (Manual) Lymphocytes % (Manual) Monocytes % (Manual) Nucleated RBC % Seg Neutrophils # Seg Neutrophils # Man Lymphocytes # (Manual) Monocytes # (Manual) Eosinophils # (Manual) PT INR APTT D-Dimer Heparin Anti-Xa Level ABG pH POC ABG pCO2 POC ABG pO2 ABG pO2 ABG HCO3 ABG Hemoglobin ABG Oxyhemoglobin ABG Sodium ABG Potassium ABG Chloride ABG Glucose Carboxyhemoglobin Sodium Potassium Chloride Carbon Dioxide BUN Creatinine Glucose POC Glucose 157 H 156 H 162 H Lactic Acid Calcium Phosphorus Magnesium Ferritin Direct Bilirubin AST ALT Lactate Dehydrogenase Total Creatine Kinase C-Reactive Protein Total Protein Albumin Triglycerides Arterial Blood Glucose Arterial Blood Ionized Calcium Urine Creatinine Urine Chloride Vancomycin Trough Coronavirus (PCR) Crossmatch 06/24/20 06/24/20 06/24/20 04:41 05:57 06:30 WBC 34.3 H RBC Hgb 10.9 L Hct 32.6 L MCHC RDW Lymph % (Auto) 2.0 L [place] % (Auto) Lymph # (Auto) 0.7 L [place] # (Auto) 1.2 H Eos # (Auto) Seg Neutrophils % Seg Neuts % (Manual) 96.0 H Lymphocytes % (Manual) 3.0 L Monocytes % (Manual) Nucleated RBC % Seg Neutrophils # 32.3 H Seg Neutrophils # Man 32.9 H Lymphocytes # (Manual) 1.0 L Monocytes # (Manual) Eosinophils # (Manual) PT INR APTT D-Dimer Heparin Anti-Xa Level ABG pH POC ABG pCO2 POC ABG pO2 71.1 L ABG pO2 ABG HCO3 ABG Hemoglobin ABG Oxyhemoglobin 92.4 L ABG Sodium 115.6 L ABG Potassium ABG Chloride ABG Glucose 159 H Carboxyhemoglobin Sodium Potassium Chloride Carbon Dioxide BUN Creatinine Glucose POC Glucose 143 H Lactic Acid Calcium Phosphorus Magnesium Ferritin Direct Bilirubin AST ALT Lactate Dehydrogenase Total Creatine Kinase C-Reactive Protein Total Protein Albumin Triglycerides Arterial Blood Glucose 159 H Arterial Blood Ionized Calcium 4.2 L Urine Creatinine Urine Chloride Vancomycin Trough Coronavirus (PCR) Crossmatch 06/24/20 06/24/20 06/24/20 07:03 09:37 11:56 WBC RBC Hgb Hct MCHC RDW Lymph % (Auto) [place] % (Auto) Lymph # (Auto) [place] # (Auto) Eos # (Auto) Seg Neutrophils % Seg Neuts % (Manual) Lymphocytes % (Manual) Monocytes % (Manual) Nucleated RBC % Seg Neutrophils # Seg Neutrophils # Man Lymphocytes # (Manual) Monocytes # (Manual) Eosinophils # (Manual) PT INR APTT D-Dimer Heparin Anti-Xa Level 0.26 L ABG pH POC ABG pCO2 POC ABG pO2 ABG pO2 ABG HCO3 ABG Hemoglobin ABG Oxyhemoglobin ABG Sodium ABG Potassium ABG Chloride ABG Glucose Carboxyhemoglobin Sodium Potassium 5.1 H Chloride Carbon Dioxide BUN 103 H Creatinine 5.0 H Glucose 163 H POC Glucose 149 H Lactic Acid Calcium 7.6 L Phosphorus Magnesium Ferritin Direct Bilirubin AST ALT Lactate Dehydrogenase Total Creatine Kinase C-Reactive Protein Total Protein Albumin Triglycerides Arterial Blood Glucose Arterial Blood Ionized Calcium Urine Creatinine Urine Chloride Vancomycin Trough Coronavirus (PCR) Crossmatch 06/24/20 06/25/20 06/25/20 18:09 01:05 03:00 WBC RBC Hgb 10.6 L Hct 32.1 L MCHC RDW Lymph % (Auto) [place] % (Auto) Lymph # (Auto) [place] # (Auto) Eos # (Auto) Seg Neutrophils % Seg Neuts % (Manual) Lymphocytes % (Manual) Monocytes % (Manual) Nucleated RBC % Seg Neutrophils # Seg Neutrophils # Man Lymphocytes # (Manual) Monocytes # (Manual) Eosinophils # (Manual) PT INR APTT D-Dimer Heparin Anti-Xa Level ABG pH POC ABG pCO2 POC ABG pO2 ABG pO2 ABG HCO3 ABG Hemoglobin ABG Oxyhemoglobin ABG Sodium ABG Potassium ABG Chloride ABG Glucose Carboxyhemoglobin Sodium Potassium Chloride Carbon Dioxide BUN Creatinine Glucose POC Glucose 141 H 137 H Lactic Acid Calcium Phosphorus Magnesium Ferritin Direct Bilirubin AST ALT Lactate Dehydrogenase Total Creatine Kinase C-Reactive Protein Total Protein Albumin Triglycerides Arterial Blood Glucose Arterial Blood Ionized Calcium Urine Creatinine Urine Chloride Vancomycin Trough Coronavirus (PCR) Crossmatch 06/25/20 06/25/20 06/25/20 03:48 05:17 12:08 WBC RBC Hgb Hct MCHC RDW Lymph % (Auto) [place] % (Auto) Lymph # (Auto) [place] # (Auto) Eos # (Auto) Seg Neutrophils % Seg Neuts % (Manual) Lymphocytes % (Manual) Monocytes % (Manual) Nucleated RBC % Seg Neutrophils # Seg Neutrophils # Man Lymphocytes # (Manual) Monocytes # (Manual) Eosinophils # (Manual) PT INR APTT D-Dimer Heparin Anti-Xa Level ABG pH POC ABG pCO2 29.4 L POC ABG pO2 67.1 L ABG pO2 ABG HCO3 ABG Hemoglobin 11.5 L ABG Oxyhemoglobin ABG Sodium 124.1 L ABG Potassium 4.6 H ABG Chloride ABG Glucose 159 H Carboxyhemoglobin Sodium Potassium Chloride Carbon Dioxide BUN Creatinine Glucose POC Glucose 149 H 150 H Lactic Acid Calcium Phosphorus Magnesium Ferritin Direct Bilirubin AST ALT Lactate Dehydrogenase Total Creatine Kinase C-Reactive Protein Total Protein Albumin Triglycerides Arterial Blood Glucose 159 H Arterial Blood Ionized Calcium 4.2 L Urine Creatinine Urine Chloride Vancomycin Trough Coronavirus (PCR) Crossmatch 06/25/20 06/25/20 06/25/20 16:27 16:35 17:27 WBC RBC Hgb Hct MCHC RDW Lymph % (Auto) [place] % (Auto) Lymph # (Auto) [place] # (Auto) Eos # (Auto) Seg Neutrophils % Seg Neuts % (Manual) Lymphocytes % (Manual) Monocytes % (Manual) Nucleated RBC % Seg Neutrophils # Seg Neutrophils # Man Lymphocytes # (Manual) Monocytes # (Manual) Eosinophils # (Manual) PT INR APTT D-Dimer Heparin Anti-Xa Level < 0.10 L ABG pH POC ABG pCO2 POC ABG pO2 ABG pO2 ABG HCO3 ABG Hemoglobin ABG Oxyhemoglobin ABG Sodium ABG Potassium ABG Chloride ABG Glucose Carboxyhemoglobin Sodium Potassium Chloride Carbon Dioxide BUN Creatinine Glucose POC Glucose 143 H 156 H Lactic Acid Calcium Phosphorus Magnesium Ferritin Direct Bilirubin AST ALT Lactate Dehydrogenase Total Creatine Kinase C-Reactive Protein Total Protein Albumin Triglycerides Arterial Blood Glucose Arterial Blood Ionized Calcium Urine Creatinine Urine Chloride Vancomycin Trough Coronavirus (PCR) Crossmatch 06/25/20 06/25/20 06/25/20 20:00 20:55 23:10 WBC 32.7 H RBC 3.06 L Hgb 9.0 L 9.5 L Hct 26.7 L 28.6 L MCHC RDW Lymph % (Auto) [place] % (Auto) Lymph # (Auto) [place] # (Auto) Eos # (Auto) Seg Neutrophils % Seg Neuts % (Manual) Lymphocytes % (Manual) 2.0 L Monocytes % (Manual) Nucleated RBC % Seg Neutrophils # Seg Neutrophils # Man 30.7 H Lymphocytes # (Manual) 0.7 L Monocytes # (Manual) 1.3 H Eosinophils # (Manual) PT 17.7 H INR 1.47 H APTT 65.8 H* D-Dimer Heparin Anti-Xa Level ABG pH POC ABG pCO2 POC ABG pO2 ABG pO2 ABG HCO3 ABG Hemoglobin ABG Oxyhemoglobin ABG Sodium ABG Potassium ABG Chloride ABG Glucose Carboxyhemoglobin Sodium Potassium Chloride Carbon Dioxide BUN Creatinine Glucose POC Glucose Lactic Acid Calcium Phosphorus Magnesium Ferritin Direct Bilirubin AST ALT Lactate Dehydrogenase Total Creatine Kinase C-Reactive Protein Total Protein Albumin Triglycerides Arterial Blood Glucose Arterial Blood Ionized Calcium Urine Creatinine Urine Chloride Vancomycin Trough Coronavirus (PCR) Crossmatch 06/25/20 06/26/20 06/26/20 23:14 01:30 03:25 WBC RBC Hgb Hct MCHC RDW Lymph % (Auto) [place] % (Auto) Lymph # (Auto) [place] # (Auto) Eos # (Auto) Seg Neutrophils % Seg Neuts % (Manual) Lymphocytes % (Manual) Monocytes % (Manual) Nucleated RBC % Seg Neutrophils # Seg Neutrophils # Man Lymphocytes # (Manual) Monocytes # (Manual) Eosinophils # (Manual) PT INR APTT D-Dimer Heparin Anti-Xa Level < 0.10 L ABG pH POC ABG pCO2 POC ABG pO2 ABG pO2 ABG HCO3 ABG Hemoglobin 11.8 L ABG Oxyhemoglobin ABG Sodium 127.1 L ABG Potassium 5.4 H ABG Chloride ABG Glucose 155 H Carboxyhemoglobin 0.3 L Sodium Potassium Chloride Carbon Dioxide BUN Creatinine Glucose POC Glucose 148 H Lactic Acid Calcium Phosphorus Magnesium Ferritin Direct Bilirubin AST ALT Lactate Dehydrogenase Total Creatine Kinase C-Reactive Protein Total Protein Albumin Triglycerides Arterial Blood Glucose 155 H Arterial Blood Ionized Calcium 4.2 L Urine Creatinine Urine Chloride Vancomycin Trough Coronavirus (PCR) Crossmatch 06/26/20 06/26/20 06/26/20 03:59 05:14 05:47 WBC 36.5 H RBC 3.26 L Hgb 9.7 L Hct 28.2 L MCHC RDW Lymph % (Auto) [place] % (Auto) Lymph # (Auto) [place] # (Auto) Eos # (Auto) Seg Neutrophils % Seg Neuts % (Manual) 92.0 H Lymphocytes % (Manual) 4.0 L Monocytes % (Manual) Nucleated RBC % Seg Neutrophils # Seg Neutrophils # Man 33.6 H Lymphocytes # (Manual) Monocytes # (Manual) Eosinophils # (Manual) PT INR APTT D-Dimer Heparin Anti-Xa Level ABG pH POC ABG pCO2 POC ABG pO2 ABG pO2 ABG HCO3 ABG Hemoglobin ABG Oxyhemoglobin ABG Sodium ABG Potassium ABG Chloride ABG Glucose Carboxyhemoglobin Sodium Potassium 5.9 H Chloride Carbon Dioxide 20 L BUN 144 H Creatinine 6.4 H Glucose 149 H POC Glucose 128 H Lactic Acid Calcium 7.6 L Phosphorus Magnesium Ferritin Direct Bilirubin AST ALT Lactate Dehydrogenase Total Creatine Kinase C-Reactive Protein Total Protein Albumin Triglycerides Arterial Blood Glucose Arterial Blood Ionized Calcium Urine Creatinine Urine Chloride Vancomycin Trough Coronavirus (PCR) Crossmatch 06/26/20 06/26/20 06/26/20 05:47 12:47 17:42 WBC RBC Hgb Hct MCHC RDW Lymph % (Auto) [place] % (Auto) Lymph # (Auto) [place] # (Auto) Eos # (Auto) Seg Neutrophils % Seg Neuts % (Manual) Lymphocytes % (Manual) Monocytes % (Manual) Nucleated RBC % Seg Neutrophils # Seg Neutrophils # Man Lymphocytes # (Manual) Monocytes # (Manual) Eosinophils # (Manual) PT 17.4 H INR 1.44 H APTT D-Dimer Heparin Anti-Xa Level ABG pH POC ABG pCO2 POC ABG pO2 ABG pO2 ABG HCO3 ABG Hemoglobin ABG Oxyhemoglobin ABG Sodium ABG Potassium ABG Chloride ABG Glucose Carboxyhemoglobin Sodium Potassium Chloride Carbon Dioxide BUN Creatinine Glucose POC Glucose 124 H 127 H Lactic Acid Calcium Phosphorus Magnesium Ferritin Direct Bilirubin AST ALT Lactate Dehydrogenase Total Creatine Kinase C-Reactive Protein Total Protein Albumin Triglycerides Arterial Blood Glucose Arterial Blood Ionized Calcium Urine Creatinine Urine Chloride Vancomycin Trough Coronavirus (PCR) Crossmatch 06/26/20 06/27/20 06/27/20 23:30 03:32 04:00 WBC RBC Hgb 8.7 L Hct 26.4 L MCHC RDW Lymph % (Auto) [place] % (Auto) Lymph # (Auto) [place] # (Auto) Eos # (Auto) Seg Neutrophils % Seg Neuts % (Manual) Lymphocytes % (Manual) Monocytes % (Manual) Nucleated RBC % Seg Neutrophils # Seg Neutrophils # Man Lymphocytes # (Manual) Monocytes # (Manual) Eosinophils # (Manual) PT INR APTT D-Dimer Heparin Anti-Xa Level ABG pH 7.298 L POC ABG pCO2 POC ABG pO2 ABG pO2 ABG HCO3 ABG Hemoglobin 9.6 L ABG Oxyhemoglobin ABG Sodium 124.4 L ABG Potassium 6.6 H ABG Chloride ABG Glucose 136 H Carboxyhemoglobin Sodium Potassium Chloride Carbon Dioxide BUN Creatinine Glucose POC Glucose 123 H Lactic Acid Calcium Phosphorus Magnesium Ferritin Direct Bilirubin AST ALT Lactate Dehydrogenase Total Creatine Kinase C-Reactive Protein Total Protein Albumin Triglycerides Arterial Blood Glucose 136 H Arterial Blood Ionized Calcium 4.1 L Urine Creatinine Urine Chloride Vancomycin Trough Coronavirus (PCR) Crossmatch 06/27/20 06/27/20 06/27/20 05:26 10:14 11:58 WBC RBC Hgb Hct MCHC RDW Lymph % (Auto) [place] % (Auto) Lymph # (Auto) [place] # (Auto) Eos # (Auto) Seg Neutrophils % Seg Neuts % (Manual) Lymphocytes % (Manual) Monocytes % (Manual) Nucleated RBC % Seg Neutrophils # Seg Neutrophils # Man Lymphocytes # (Manual) Monocytes # (Manual) Eosinophils # (Manual) PT INR APTT D-Dimer Heparin Anti-Xa Level ABG pH POC ABG pCO2 POC ABG pO2 ABG pO2 ABG HCO3 ABG Hemoglobin ABG Oxyhemoglobin ABG Sodium ABG Potassium ABG Chloride ABG Glucose Carboxyhemoglobin Sodium 136 L Potassium 7.0 H* Chloride 97.8 L Carbon Dioxide BUN 172 H Creatinine 7.4 H Glucose 129 H POC Glucose 124 H 115 H Lactic Acid Calcium 7.6 L Phosphorus Magnesium Ferritin Direct Bilirubin AST ALT Lactate Dehydrogenase Total Creatine Kinase C-Reactive Protein Total Protein Albumin Triglycerides Arterial Blood Glucose Arterial Blood Ionized Calcium Urine Creatinine Urine Chloride Vancomycin Trough Coronavirus (PCR) Crossmatch 06/27/20 06/27/20 06/27/20 17:32 18:30 23:24 WBC RBC Hgb Hct MCHC RDW Lymph % (Auto) [place] % (Auto) Lymph # (Auto) [place] # (Auto) Eos # (Auto) Seg Neutrophils % Seg Neuts % (Manual) Lymphocytes % (Manual) Monocytes % (Manual) Nucleated RBC % Seg Neutrophils # Seg Neutrophils # Man Lymphocytes # (Manual) Monocytes # (Manual) Eosinophils # (Manual) PT INR APTT D-Dimer Heparin Anti-Xa Level ABG pH POC ABG pCO2 POC ABG pO2 ABG pO2 ABG HCO3 ABG Hemoglobin ABG Oxyhemoglobin ABG Sodium ABG Potassium ABG Chloride ABG Glucose Carboxyhemoglobin Sodium Potassium 7.3 H* Chloride Carbon Dioxide BUN Creatinine Glucose POC Glucose 122 H 116 H Lactic Acid Calcium Phosphorus Magnesium Ferritin Direct Bilirubin AST ALT Lactate Dehydrogenase Total Creatine Kinase C-Reactive Protein Total Protein Albumin Triglycerides Arterial Blood Glucose Arterial Blood Ionized Calcium Urine Creatinine Urine Chloride Vancomycin Trough Coronavirus (PCR) Crossmatch 06/28/20 06/28/20 06/28/20 00:00 02:16 05:37 WBC RBC Hgb Hct MCHC RDW Lymph % (Auto) [place] % (Auto) Lymph # (Auto) [place] # (Auto) Eos # (Auto) Seg Neutrophils % Seg Neuts % (Manual) Lymphocytes % (Manual) Monocytes % (Manual) Nucleated RBC % Seg Neutrophils # Seg Neutrophils # Man Lymphocytes # (Manual) Monocytes # (Manual) Eosinophils # (Manual) PT INR APTT D-Dimer Heparin Anti-Xa Level ABG pH POC ABG pCO2 POC ABG pO2 79.0 L ABG pO2 ABG HCO3 ABG Hemoglobin 11.7 L ABG Oxyhemoglobin ABG Sodium 128.1 L ABG Potassium 6.6 H ABG Chloride ABG Glucose 124 H Carboxyhemoglobin Sodium Potassium 7.3 H* Chloride Carbon Dioxide BUN Creatinine Glucose POC Glucose 115 H Lactic Acid Calcium Phosphorus Magnesium Ferritin Direct Bilirubin AST ALT Lactate Dehydrogenase Total Creatine Kinase C-Reactive Protein Total Protein Albumin Triglycerides Arterial Blood Glucose 124 H Arterial Blood Ionized Calcium 4.2 L Urine Creatinine Urine Chloride Vancomycin Trough Coronavirus (PCR) Crossmatch 06/28/20 06/28/20 06/28/20 10:03 10:03 11:51 WBC 33.6 H RBC 3.03 L Hgb 8.9 L Hct 27.0 L MCHC RDW Lymph % (Auto) [place] % (Auto) Lymph # (Auto) [place] # (Auto) Eos # (Auto) Seg Neutrophils % Seg Neuts % (Manual) Lymphocytes % (Manual) Monocytes % (Manual) Nucleated RBC % Seg Neutrophils # Seg Neutrophils # Man Lymphocytes # (Manual) Monocytes # (Manual) Eosinophils # (Manual) PT INR APTT D-Dimer Heparin Anti-Xa Level ABG pH POC ABG pCO2 POC ABG pO2 ABG pO2 ABG HCO3 ABG Hemoglobin ABG Oxyhemoglobin ABG Sodium ABG Potassium ABG Chloride ABG Glucose Carboxyhemoglobin Sodium 136 L Potassium 6.5 H* Chloride Carbon Dioxide 20 L BUN 129 H Creatinine 5.8 H Glucose 113 H POC Glucose 107 H Lactic Acid Calcium 7.6 L Phosphorus Magnesium Ferritin Direct Bilirubin AST ALT Lactate Dehydrogenase Total Creatine Kinase C-Reactive Protein Total Protein Albumin Triglycerides Arterial Blood Glucose Arterial Blood Ionized Calcium Urine Creatinine Urine Chloride Vancomycin Trough Coronavirus (PCR) Crossmatch 06/28/20 06/28/20 06/29/20 17:45 Unknown 03:15 WBC RBC Hgb Hct MCHC RDW Lymph % (Auto) [place] % (Auto) Lymph # (Auto) [place] # (Auto) Eos # (Auto) Seg Neutrophils % Seg Neuts % (Manual) Lymphocytes % (Manual) Monocytes % (Manual) Nucleated RBC % Seg Neutrophils # Seg Neutrophils # Man Lymphocytes # (Manual) Monocytes # (Manual) Eosinophils # (Manual) PT INR APTT D-Dimer Heparin Anti-Xa Level ABG pH POC ABG pCO2 POC ABG pO2 ABG pO2 ABG HCO3 ABG Hemoglobin 7.8 L ABG Oxyhemoglobin ABG Sodium 127.4 L ABG Potassium 5.5 H ABG Chloride 97.0 L ABG Glucose 96 H Carboxyhemoglobin Sodium Potassium 5.4 H Chloride Carbon Dioxide BUN Creatinine Glucose POC Glucose 117 H Lactic Acid Calcium Phosphorus Magnesium Ferritin Direct Bilirubin AST ALT Lactate Dehydrogenase Total Creatine Kinase C-Reactive Protein Total Protein Albumin Triglycerides Arterial Blood Glucose 96 H Arterial Blood Ionized Calcium 4.0 L Urine Creatinine Urine Chloride Vancomycin Trough Coronavirus (PCR) Crossmatch 06/29/20 06/29/20 06/29/20 03:45 Unknown Unknown WBC RBC Hgb Hct MCHC RDW Lymph % (Auto) [place] % (Auto) Lymph # (Auto) [place] # (Auto) Eos # (Auto) Seg Neutrophils % Seg Neuts % (Manual) Lymphocytes % (Manual) Monocytes % (Manual) Nucleated RBC % Seg Neutrophils # Seg Neutrophils # Man Lymphocytes # (Manual) Monocytes # (Manual) Eosinophils # (Manual) PT INR APTT D-Dimer Heparin Anti-Xa Level ABG pH POC ABG pCO2 POC ABG pO2 ABG pO2 ABG HCO3 ABG Hemoglobin ABG Oxyhemoglobin ABG Sodium ABG Potassium ABG Chloride ABG Glucose Carboxyhemoglobin Sodium 135 L Potassium 6.0 H 6.1 H* Chloride 94.8 L Carbon Dioxide BUN 109 H 114 H Creatinine 5.5 H Glucose POC Glucose Lactic Acid Calcium 7.4 L Phosphorus Magnesium Ferritin Direct Bilirubin AST 47 H ALT Lactate Dehydrogenase Total Creatine Kinase C-Reactive Protein Total Protein 4.9 L Albumin 2.2 L Triglycerides Arterial Blood Glucose Arterial Blood Ionized Calcium Urine Creatinine Urine Chloride Vancomycin Trough Coronavirus (PCR) Crossmatch 06/29/20 06/29/20 06/30/20 Unknown Unknown 03:32 WBC 20.7 H RBC 2.57 L Hgb 7.6 L Hct 23.0 L MCHC RDW Lymph % (Auto) [place] % (Auto) Lymph # (Auto) [place] # (Auto) Eos # (Auto) Seg Neutrophils % Seg Neuts % (Manual) Lymphocytes % (Manual) Monocytes % (Manual) Nucleated RBC % Seg Neutrophils # Seg Neutrophils # Man Lymphocytes # (Manual) Monocytes # (Manual) Eosinophils # (Manual) PT INR APTT D-Dimer Heparin Anti-Xa Level ABG pH POC ABG pCO2 POC ABG pO2 ABG pO2 ABG HCO3 ABG Hemoglobin 11.4 L ABG Oxyhemoglobin ABG Sodium 130.1 L ABG Potassium 5.0 H ABG Chloride ABG Glucose Carboxyhemoglobin Sodium Potassium Chloride Carbon Dioxide BUN Creatinine Glucose POC Glucose Lactic Acid Calcium Phosphorus Magnesium Ferritin Direct Bilirubin AST ALT Lactate Dehydrogenase Total Creatine Kinase 618 H C-Reactive Protein Total Protein Albumin Triglycerides Arterial Blood Glucose Arterial Blood Ionized Calcium 3.9 L Urine Creatinine Urine Chloride Vancomycin Trough Coronavirus (PCR) Crossmatch 06/30/20 06/30/20 06/30/20 03:50 03:50 11:39 WBC 13.1 H RBC Hgb Hct MCHC RDW Lymph % (Auto) [place] % (Auto) Lymph # (Auto) [place] # (Auto) Eos # (Auto) Seg Neutrophils % Seg Neuts % (Manual) 95.0 H Lymphocytes % (Manual) 3.0 L Monocytes % (Manual) Nucleated RBC % Seg Neutrophils # Seg Neutrophils # Man 12.4 H Lymphocytes # (Manual) 0.4 L Monocytes # (Manual) Eosinophils # (Manual) PT INR APTT D-Dimer Heparin Anti-Xa Level ABG pH POC ABG pCO2 POC ABG pO2 ABG pO2 ABG HCO3 ABG Hemoglobin ABG Oxyhemoglobin ABG Sodium ABG Potassium ABG Chloride ABG Glucose Carboxyhemoglobin Sodium 135 L Potassium 5.4 H D Chloride 93.6 L Carbon Dioxide BUN 85 H Creatinine 4.6 H Glucose POC Glucose 111 H Lactic Acid Calcium 7.1 L Phosphorus 9.40 H Magnesium Ferritin Direct Bilirubin AST ALT Lactate Dehydrogenase Total Creatine Kinase C-Reactive Protein Total Protein Albumin Triglycerides Arterial Blood Glucose Arterial Blood Ionized Calcium Urine Creatinine Urine Chloride Vancomycin Trough Coronavirus (PCR) Crossmatch 06/30/20 06/30/20 07/01/20 13:12 Unknown 03:19 WBC RBC Hgb 7.8 L D Hct 23.2 L D MCHC RDW Lymph % (Auto) [place] % (Auto) Lymph # (Auto) [place] # (Auto) Eos # (Auto) Seg Neutrophils % Seg Neuts % (Manual) Lymphocytes % (Manual) Monocytes % (Manual) Nucleated RBC % Seg Neutrophils # Seg Neutrophils # Man Lymphocytes # (Manual) Monocytes # (Manual) Eosinophils # (Manual) PT INR APTT D-Dimer Heparin Anti-Xa Level ABG pH 7.461 H POC ABG pCO2 POC ABG pO2 77.2 L ABG pO2 ABG HCO3 ABG Hemoglobin 6.9 L ABG Oxyhemoglobin ABG Sodium 128.5 L ABG Potassium ABG Chloride 97.0 L ABG Glucose Carboxyhemoglobin Sodium Potassium Chloride Carbon Dioxide BUN Creatinine Glucose POC Glucose Lactic Acid Calcium Phosphorus Magnesium Ferritin Direct Bilirubin AST ALT Lactate Dehydrogenase Total Creatine Kinase C-Reactive Protein Total Protein Albumin Triglycerides Arterial Blood Glucose Arterial Blood Ionized Calcium 3.7 L Urine Creatinine Urine Chloride Vancomycin Trough Coronavirus (PCR) Positive A Crossmatch 07/01/20 07/01/20 07/01/20 06:00 06:00 11:04 WBC 16.7 H RBC 2.16 L Hgb 6.4 L Hct 19.2 L* MCHC RDW Lymph % (Auto) [place] % (Auto) Lymph # (Auto) [place] # (Auto) Eos # (Auto) Seg Neutrophils % Seg Neuts % (Manual) Lymphocytes % (Manual) Monocytes % (Manual) Nucleated RBC % Seg Neutrophils # Seg Neutrophils # Man Lymphocytes # (Manual) Monocytes # (Manual) Eosinophils # (Manual) PT INR APTT D-Dimer Heparin Anti-Xa Level ABG pH POC ABG pCO2 POC ABG pO2 ABG pO2 ABG HCO3 ABG Hemoglobin ABG Oxyhemoglobin ABG Sodium ABG Potassium ABG Chloride ABG Glucose Carboxyhemoglobin Sodium 136 L Potassium Chloride 95.8 L Carbon Dioxide BUN 72 H Creatinine 4.3 H Glucose POC Glucose Lactic Acid Calcium 6.7 L Phosphorus Magnesium Ferritin Direct Bilirubin AST ALT Lactate Dehydrogenase Total Creatine Kinase C-Reactive Protein Total Protein Albumin Triglycerides 250 H Arterial Blood Glucose Arterial Blood Ionized Calcium Urine Creatinine Urine Chloride Vancomycin Trough Coronavirus (PCR) Crossmatch See Detail 07/02/20 07/02/20 07/02/20 04:44 06:00 11:33 WBC 14.6 H RBC 2.47 L Hgb 7.4 L Hct 21.8 L MCHC RDW Lymph % (Auto) [place] % (Auto) Lymph # (Auto) [place] # (Auto) Eos # (Auto) Seg Neutrophils % Seg Neuts % (Manual) Lymphocytes % (Manual) Monocytes % (Manual) Nucleated RBC % Seg Neutrophils # Seg Neutrophils # Man Lymphocytes # (Manual) Monocytes # (Manual) Eosinophils # (Manual) PT INR APTT D-Dimer Heparin Anti-Xa Level ABG pH 7.457 H POC ABG pCO2 POC ABG pO2 79.4 L ABG pO2 ABG HCO3 ABG Hemoglobin 8.5 L ABG Oxyhemoglobin ABG Sodium 128.4 L ABG Potassium ABG Chloride 97.0 L ABG Glucose 100 H Carboxyhemoglobin Sodium 133 L Potassium 5.2 H Chloride 93.3 L Carbon Dioxide BUN 66 H Creatinine 4.1 H Glucose 102 H POC Glucose Lactic Acid Calcium 7.2 L Phosphorus Magnesium Ferritin Direct Bilirubin AST ALT Lactate Dehydrogenase Total Creatine Kinase C-Reactive Protein Total Protein Albumin Triglycerides Arterial Blood Glucose 100 H Arterial Blood Ionized Calcium 3.9 L Urine Creatinine Urine Chloride Vancomycin Trough Coronavirus (PCR) Crossmatch 07/02/20 07/03/20 07/03/20 11:33 03:54 09:15 WBC 16.6 H RBC 2.44 L Hgb 7.3 L Hct 21.4 L MCHC RDW Lymph % (Auto) [place] % (Auto) Lymph # (Auto) [place] # (Auto) Eos # (Auto) Seg Neutrophils % Seg Neuts % (Manual) Lymphocytes % (Manual) Monocytes % (Manual) Nucleated RBC % Seg Neutrophils # Seg Neutrophils # Man Lymphocytes # (Manual) Monocytes # (Manual) Eosinophils # (Manual) PT INR APTT D-Dimer Heparin Anti-Xa Level ABG pH POC ABG pCO2 POC ABG pO2 66.1 L ABG pO2 ABG HCO3 ABG Hemoglobin 8.0 L ABG Oxyhemoglobin ABG Sodium 124.6 L ABG Potassium 5.5 H ABG Chloride 96.0 L ABG Glucose 111 H Carboxyhemoglobin Sodium Potassium Chloride Carbon Dioxide BUN Creatinine Glucose POC Glucose Lactic Acid Calcium Phosphorus Magnesium Ferritin Direct Bilirubin 0.7 H AST 94 H ALT 60 H Lactate Dehydrogenase Total Creatine Kinase C-Reactive Protein Total Protein 4.4 L Albumin 1.9 L Triglycerides Arterial Blood Glucose 111 H Arterial Blood Ionized Calcium 3.8 L Urine Creatinine Urine Chloride Vancomycin Trough Coronavirus (PCR) Crossmatch 07/03/20 07/03/20 07/03/20 09:15 10:10 14:50 WBC RBC Hgb Hct MCHC RDW Lymph % (Auto) [place] % (Auto) Lymph # (Auto) [place] # (Auto) Eos # (Auto) Seg Neutrophils % Seg Neuts % (Manual) Lymphocytes % (Manual) Monocytes % (Manual) Nucleated RBC % Seg Neutrophils # Seg Neutrophils # Man Lymphocytes # (Manual) Monocytes # (Manual) Eosinophils # (Manual) PT INR APTT D-Dimer 6608.00 H Heparin Anti-Xa Level ABG pH POC ABG pCO2 POC ABG pO2 ABG pO2 ABG HCO3 ABG Hemoglobin ABG Oxyhemoglobin ABG Sodium ABG Potassium ABG Chloride ABG Glucose Carboxyhemoglobin Sodium 133 L Potassium 6.2 H* Chloride 93.1 L Carbon Dioxide BUN 89 H Creatinine 5.1 H Glucose POC Glucose Lactic Acid Calcium 7.0 L Phosphorus Magnesium Ferritin Direct Bilirubin AST ALT Lactate Dehydrogenase Total Creatine Kinase C-Reactive Protein Total Protein Albumin Triglycerides Arterial Blood Glucose Arterial Blood Ionized Calcium Urine Creatinine Urine Chloride Vancomycin Trough Coronavirus (PCR) Positive A Crossmatch 07/03/20 07/03/20 07/03/20 14:50 14:50 14:50 WBC RBC Hgb Hct MCHC RDW Lymph % (Auto) [place] % (Auto) Lymph # (Auto) [place] # (Auto) Eos # (Auto) Seg Neutrophils % Seg Neuts % (Manual) Lymphocytes % (Manual) Monocytes % (Manual) Nucleated RBC % Seg Neutrophils # Seg Neutrophils # Man Lymphocytes # (Manual) Monocytes # (Manual) Eosinophils # (Manual) PT INR APTT D-Dimer Heparin Anti-Xa Level ABG pH POC ABG pCO2 POC ABG pO2 ABG pO2 ABG HCO3 ABG Hemoglobin ABG Oxyhemoglobin ABG Sodium ABG Potassium ABG Chloride ABG Glucose Carboxyhemoglobin Sodium Potassium Chloride Carbon Dioxide BUN Creatinine Glucose POC Glucose Lactic Acid < 0.20 L Calcium Phosphorus Magnesium Ferritin 1171.0 H Direct Bilirubin AST ALT Lactate Dehydrogenase 525 H Total Creatine Kinase C-Reactive Protein 31.50 H Total Protein Albumin Triglycerides Arterial Blood Glucose Arterial Blood Ionized Calcium Urine Creatinine Urine Chloride Vancomycin Trough Coronavirus (PCR) Crossmatch 07/03/20 07/04/20 07/04/20 16:47 05:20 05:20 WBC 11.8 H RBC 2.32 L Hgb 6.7 L Hct 20.8 L MCHC RDW Lymph % (Auto) 2.6 L [place] % (Auto) Lymph # (Auto) 0.3 L [place] # (Auto) Eos # (Auto) Seg Neutrophils % Seg Neuts % (Manual) Lymphocytes % (Manual) Monocytes % (Manual) Nucleated RBC % Seg Neutrophils # 11.0 H Seg Neutrophils # Man Lymphocytes # (Manual) Monocytes # (Manual) Eosinophils # (Manual) PT INR APTT D-Dimer Heparin Anti-Xa Level ABG pH POC ABG pCO2 POC ABG pO2 ABG pO2 ABG HCO3 ABG Hemoglobin ABG Oxyhemoglobin ABG Sodium ABG Potassium ABG Chloride ABG Glucose Carboxyhemoglobin Sodium Potassium 6.0 H Chloride 97.8 L Carbon Dioxide BUN 75 H Creatinine 4.5 H Glucose 121 H POC Glucose 107 H Lactic Acid Calcium 7.9 L Phosphorus Magnesium Ferritin Direct Bilirubin AST ALT Lactate Dehydrogenase Total Creatine Kinase C-Reactive Protein Total Protein Albumin Triglycerides Arterial Blood Glucose Arterial Blood Ionized Calcium Urine Creatinine Urine Chloride Vancomycin Trough Coronavirus (PCR) Crossmatch 07/04/20 07/04/20 07/04/20 05:20 05:50 09:25 WBC RBC Hgb Hct MCHC RDW Lymph % (Auto) [place] % (Auto) Lymph # (Auto) [place] # (Auto) Eos # (Auto) Seg Neutrophils % Seg Neuts % (Manual) Lymphocytes % (Manual) Monocytes % (Manual) Nucleated RBC % Seg Neutrophils # Seg Neutrophils # Man Lymphocytes # (Manual) Monocytes # (Manual) Eosinophils # (Manual) PT INR APTT D-Dimer Heparin Anti-Xa Level ABG pH 7.324 L POC ABG pCO2 POC ABG pO2 ABG pO2 98.9 H ABG HCO3 26.8 H ABG Hemoglobin < 5.1 L ABG Oxyhemoglobin ABG Sodium ABG Potassium ABG Chloride ABG Glucose Carboxyhemoglobin Sodium Potassium Chloride Carbon Dioxide BUN Creatinine Glucose POC Glucose 114 H Lactic Acid Calcium Phosphorus Magnesium Ferritin Direct Bilirubin AST ALT Lactate Dehydrogenase Total Creatine Kinase C-Reactive Protein Total Protein Albumin Triglycerides Arterial Blood Glucose Arterial Blood Ionized Calcium Urine Creatinine Urine Chloride Vancomycin Trough Coronavirus (PCR) Crossmatch See Detail 07/04/20 07/04/20 07/04/20 12:33 17:41 23:04 WBC RBC Hgb Hct MCHC RDW Lymph % (Auto) [place] % (Auto) Lymph # (Auto) [place] # (Auto) Eos # (Auto) Seg Neutrophils % Seg Neuts % (Manual) Lymphocytes % (Manual) Monocytes % (Manual) Nucleated RBC % Seg Neutrophils # Seg Neutrophils # Man Lymphocytes # (Manual) Monocytes # (Manual) Eosinophils # (Manual) PT INR APTT D-Dimer Heparin Anti-Xa Level ABG pH POC ABG pCO2 POC ABG pO2 ABG pO2 ABG HCO3 ABG Hemoglobin ABG Oxyhemoglobin ABG Sodium ABG Potassium ABG Chloride ABG Glucose Carboxyhemoglobin Sodium Potassium Chloride Carbon Dioxide BUN Creatinine Glucose POC Glucose 119 H 109 H 116 H Lactic Acid Calcium Phosphorus Magnesium Ferritin Direct Bilirubin AST ALT Lactate Dehydrogenase Total Creatine Kinase C-Reactive Protein Total Protein Albumin Triglycerides Arterial Blood Glucose Arterial Blood Ionized Calcium Urine Creatinine Urine Chloride Vancomycin Trough Coronavirus (PCR) Crossmatch 07/05/20 07/05/20 07/05/20 04:30 08:21 08:21 WBC RBC 2.77 L Hgb 7.9 L Hct 23.9 L MCHC RDW 16.7 H Lymph % (Auto) 7.5 L [place] % (Auto) Lymph # (Auto) 0.7 L [place] # (Auto) Eos # (Auto) Seg Neutrophils % 85.8 H Seg Neuts % (Manual) Lymphocytes % (Manual) Monocytes % (Manual) Nucleated RBC % Seg Neutrophils # 7.8 H Seg Neutrophils # Man Lymphocytes # (Manual) Monocytes # (Manual) Eosinophils # (Manual) PT INR APTT D-Dimer Heparin Anti-Xa Level ABG pH 7.295 L POC ABG pCO2 POC ABG pO2 ABG pO2 151.9 H ABG HCO3 26.8 H ABG Hemoglobin 7.3 L ABG Oxyhemoglobin ABG Sodium ABG Potassium ABG Chloride ABG Glucose Carboxyhemoglobin Sodium Potassium Chloride Carbon Dioxide BUN Creatinine Glucose POC Glucose Lactic Acid Calcium Phosphorus Magnesium Ferritin Direct Bilirubin AST ALT Lactate Dehydrogenase Total Creatine Kinase C-Reactive Protein Total Protein Albumin Triglycerides 258 H Arterial Blood Glucose Arterial Blood Ionized Calcium Urine Creatinine Urine Chloride Vancomycin Trough Coronavirus (PCR) Crossmatch 07/05/20 07/05/20 07/06/20 08:21 12:12 04:29 WBC RBC Hgb Hct MCHC RDW Lymph % (Auto) [place] % (Auto) Lymph # (Auto) [place] # (Auto) Eos # (Auto) Seg Neutrophils % Seg Neuts % (Manual) Lymphocytes % (Manual) Monocytes % (Manual) Nucleated RBC % Seg Neutrophils # Seg Neutrophils # Man Lymphocytes # (Manual) Monocytes # (Manual) Eosinophils # (Manual) PT INR APTT D-Dimer Heparin Anti-Xa Level ABG pH 7.291 L POC ABG pCO2 51.3 H POC ABG pO2 ABG pO2 ABG HCO3 ABG Hemoglobin 8.5 L ABG Oxyhemoglobin ABG Sodium 129.6 L ABG Potassium 4.8 H ABG Chloride 96.0 L ABG Glucose Carboxyhemoglobin Sodium 133 L Potassium 5.6 H Chloride 94.4 L Carbon Dioxide BUN 80 H Creatinine 4.2 H Glucose 114 H POC Glucose 106 H Lactic Acid Calcium 7.6 L Phosphorus Magnesium Ferritin Direct Bilirubin 0.5 H AST 75 H ALT 86 H Lactate Dehydrogenase Total Creatine Kinase C-Reactive Protein Total Protein 5.6 L D Albumin 1.9 L Triglycerides Arterial Blood Glucose Arterial Blood Ionized Calcium 4.2 L Urine Creatinine Urine Chloride Vancomycin Trough Coronavirus (PCR) Crossmatch 07/06/20 07/06/20 07/06/20 11:35 11:35 12:16 WBC RBC 2.54 L Hgb 7.5 L Hct 21.5 L MCHC 35 H RDW 15.7 H Lymph % (Auto) [place] % (Auto) Lymph # (Auto) [place] # (Auto) Eos # (Auto) Seg Neutrophils % Seg Neuts % (Manual) Lymphocytes % (Manual) Monocytes % (Manual) Nucleated RBC % Seg Neutrophils # Seg Neutrophils # Man Lymphocytes # (Manual) Monocytes # (Manual) Eosinophils # (Manual) PT INR APTT D-Dimer Heparin Anti-Xa Level ABG pH POC ABG pCO2 POC ABG pO2 ABG pO2 ABG HCO3 ABG Hemoglobin ABG Oxyhemoglobin ABG Sodium ABG Potassium ABG Chloride ABG Glucose Carboxyhemoglobin Sodium 130 L Potassium Chloride 92.2 L Carbon Dioxide 19 L D BUN 107 H Creatinine 5.1 H Glucose 106 H POC Glucose 106 H Lactic Acid Calcium 7.5 L Phosphorus Magnesium Ferritin Direct Bilirubin AST ALT Lactate Dehydrogenase Total Creatine Kinase C-Reactive Protein Total Protein Albumin Triglycerides Arterial Blood Glucose Arterial Blood Ionized Calcium Urine Creatinine Urine Chloride Vancomycin Trough Coronavirus (PCR) Crossmatch 07/06/20 07/06/20 07/06/20 17:01 21:56 23:41 WBC RBC Hgb Hct MCHC RDW Lymph % (Auto) [place] % (Auto) Lymph # (Auto) [place] # (Auto) Eos # (Auto) Seg Neutrophils % Seg Neuts % (Manual) Lymphocytes % (Manual) Monocytes % (Manual) Nucleated RBC % Seg Neutrophils # Seg Neutrophils # Man Lymphocytes # (Manual) Monocytes # (Manual) Eosinophils # (Manual) PT INR APTT D-Dimer Heparin Anti-Xa Level ABG pH POC ABG pCO2 POC ABG pO2 ABG pO2 ABG HCO3 ABG Hemoglobin ABG Oxyhemoglobin ABG Sodium ABG Potassium ABG Chloride ABG Glucose Carboxyhemoglobin Sodium 135 L Potassium 5.1 H Chloride Carbon Dioxide BUN 73 H Creatinine 4.0 H Glucose 112 H POC Glucose 109 H 111 H Lactic Acid Calcium 7.8 L Phosphorus Magnesium Ferritin Direct Bilirubin AST ALT Lactate Dehydrogenase Total Creatine Kinase C-Reactive Protein Total Protein Albumin Triglycerides Arterial Blood Glucose Arterial Blood Ionized Calcium Urine Creatinine Urine Chloride Vancomycin Trough Coronavirus (PCR) Crossmatch 07/07/20 07/07/20 07/07/20 04:18 05:04 05:29 WBC RBC 2.46 L Hgb 7.6 L Hct 21.5 L MCHC 35 H RDW 16.5 H Lymph % (Auto) [place] % (Auto) Lymph # (Auto) [place] # (Auto) Eos # (Auto) Seg Neutrophils % Seg Neuts % (Manual) 82.0 H Lymphocytes % (Manual) Monocytes % (Manual) Nucleated RBC % 1.0 H Seg Neutrophils # Seg Neutrophils # Man Lymphocytes # (Manual) 1.1 L Monocytes # (Manual) Eosinophils # (Manual) PT INR APTT D-Dimer Heparin Anti-Xa Level ABG pH POC ABG pCO2 POC ABG pO2 79.6 L ABG pO2 ABG HCO3 ABG Hemoglobin 8.2 L ABG Oxyhemoglobin ABG Sodium 133.3 L ABG Potassium 4.7 H ABG Chloride ABG Glucose 135 H Carboxyhemoglobin Sodium Potassium Chloride Carbon Dioxide BUN Creatinine Glucose POC Glucose 112 H Lactic Acid Calcium Phosphorus Magnesium Ferritin Direct Bilirubin AST ALT Lactate Dehydrogenase Total Creatine Kinase C-Reactive Protein Total Protein Albumin Triglycerides Arterial Blood Glucose 135 H Arterial Blood Ionized Calcium 4.5 L Urine Creatinine Urine Chloride Vancomycin Trough Coronavirus (PCR) Crossmatch 07/07/20 07/07/20 07/07/20 10:17 12:18 17:43 WBC RBC Hgb Hct MCHC RDW Lymph % (Auto) [place] % (Auto) Lymph # (Auto) [place] # (Auto) Eos # (Auto) Seg Neutrophils % Seg Neuts % (Manual) Lymphocytes % (Manual) Monocytes % (Manual) Nucleated RBC % Seg Neutrophils # Seg Neutrophils # Man Lymphocytes # (Manual) Monocytes # (Manual) Eosinophils # (Manual) PT INR APTT D-Dimer Heparin Anti-Xa Level ABG pH POC ABG pCO2 POC ABG pO2 ABG pO2 ABG HCO3 ABG Hemoglobin ABG Oxyhemoglobin ABG Sodium ABG Potassium ABG Chloride ABG Glucose Carboxyhemoglobin Sodium 136 L Potassium Chloride 96.8 L Carbon Dioxide BUN 82 H Creatinine 4.3 H Glucose 129 H POC Glucose 108 H 116 H Lactic Acid Calcium 7.8 L Phosphorus Magnesium Ferritin Direct Bilirubin AST ALT Lactate Dehydrogenase Total Creatine Kinase C-Reactive Protein Total Protein Albumin Triglycerides Arterial Blood Glucose Arterial Blood Ionized Calcium Urine Creatinine Urine Chloride Vancomycin Trough Coronavirus (PCR) Crossmatch 07/07/20 07/08/20 07/08/20 23:31 04:00 04:00 WBC RBC 2.52 L Hgb 7.3 L Hct 22.2 L MCHC RDW 16.6 H Lymph % (Auto) 11.5 L [place] % (Auto) Lymph # (Auto) [place] # (Auto) Eos # (Auto) Seg Neutrophils % 78.2 H Seg Neuts % (Manual) Lymphocytes % (Manual) Monocytes % (Manual) Nucleated RBC % Seg Neutrophils # 8.0 H Seg Neutrophils # Man Lymphocytes # (Manual) Monocytes # (Manual) Eosinophils # (Manual) PT INR APTT D-Dimer Heparin Anti-Xa Level ABG pH POC ABG pCO2 POC ABG pO2 ABG pO2 ABG HCO3 ABG Hemoglobin ABG Oxyhemoglobin ABG Sodium ABG Potassium ABG Chloride ABG Glucose Carboxyhemoglobin Sodium 132 L Potassium 5.4 H Chloride 92.5 L Carbon Dioxide BUN 98 H Creatinine 4.9 H Glucose 105 H POC Glucose 117 H Lactic Acid Calcium 7.9 L Phosphorus Magnesium Ferritin Direct Bilirubin AST ALT Lactate Dehydrogenase Total Creatine Kinase C-Reactive Protein Total Protein Albumin Triglycerides Arterial Blood Glucose Arterial Blood Ionized Calcium Urine Creatinine Urine Chloride Vancomycin Trough Coronavirus (PCR) Crossmatch 07/08/20 07/08/20 07/08/20 04:09 11:34 17:05 WBC RBC Hgb Hct MCHC RDW Lymph % (Auto) [place] % (Auto) Lymph # (Auto) [place] # (Auto) Eos # (Auto) Seg Neutrophils % Seg Neuts % (Manual) Lymphocytes % (Manual) Monocytes % (Manual) Nucleated RBC % Seg Neutrophils # Seg Neutrophils # Man Lymphocytes # (Manual) Monocytes # (Manual) Eosinophils # (Manual) PT INR APTT D-Dimer Heparin Anti-Xa Level ABG pH 7.220 L POC ABG pCO2 60.5 H POC ABG pO2 ABG pO2 ABG HCO3 ABG Hemoglobin 8.2 L ABG Oxyhemoglobin ABG Sodium 131.3 L ABG Potassium 5.2 H ABG Chloride ABG Glucose 103 H Carboxyhemoglobin Sodium Potassium Chloride Carbon Dioxide BUN Creatinine Glucose POC Glucose 140 H 125 H Lactic Acid Calcium Phosphorus Magnesium Ferritin Direct Bilirubin AST ALT Lactate Dehydrogenase Total Creatine Kinase C-Reactive Protein Total Protein Albumin Triglycerides Arterial Blood Glucose 103 H Arterial Blood Ionized Calcium 4.3 L Urine Creatinine Urine Chloride Vancomycin Trough Coronavirus (PCR) Crossmatch 07/08/20 07/08/20 07/09/20 20:21 23:43 05:10 WBC RBC Hgb Hct MCHC RDW Lymph % (Auto) [place] % (Auto) Lymph # (Auto) [place] # (Auto) Eos # (Auto) Seg Neutrophils % Seg Neuts % (Manual) Lymphocytes % (Manual) Monocytes % (Manual) Nucleated RBC % Seg Neutrophils # Seg Neutrophils # Man Lymphocytes # (Manual) Monocytes # (Manual) Eosinophils # (Manual) PT INR APTT D-Dimer Heparin Anti-Xa Level ABG pH 7.20 L POC ABG pCO2 69.8 H POC ABG pO2 138.9 H 76.1 L ABG pO2 ABG HCO3 ABG Hemoglobin 11.9 L 8.4 L ABG Oxyhemoglobin ABG Sodium 133.1 L 131.2 L ABG Potassium 5.0 H 4.7 H ABG Chloride ABG Glucose 120 H 102 H Carboxyhemoglobin Sodium Potassium Chloride Carbon Dioxide BUN Creatinine Glucose POC Glucose 118 H Lactic Acid Calcium Phosphorus Magnesium Ferritin Direct Bilirubin AST ALT Lactate Dehydrogenase Total Creatine Kinase C-Reactive Protein Total Protein Albumin Triglycerides Arterial Blood Glucose 120 H 102 H Arterial Blood Ionized Calcium 4.4 L 4.3 L Urine Creatinine Urine Chloride Vancomycin Trough Coronavirus (PCR) Crossmatch 07/09/20 07/09/20 07/09/20 11:51 17:04 21:00 WBC RBC Hgb Hct MCHC RDW Lymph % (Auto) [place] % (Auto) Lymph # (Auto) [place] # (Auto) Eos # (Auto) Seg Neutrophils % Seg Neuts % (Manual) Lymphocytes % (Manual) Monocytes % (Manual) Nucleated RBC % Seg Neutrophils # Seg Neutrophils # Man Lymphocytes # (Manual) Monocytes # (Manual) Eosinophils # (Manual) PT INR APTT D-Dimer Heparin Anti-Xa Level ABG pH POC ABG pCO2 POC ABG pO2 114.2 H ABG pO2 ABG HCO3 ABG Hemoglobin 7.8 L ABG Oxyhemoglobin ABG Sodium 132.3 L ABG Potassium 4.6 H ABG Chloride ABG Glucose Carboxyhemoglobin Sodium Potassium Chloride Carbon Dioxide BUN Creatinine Glucose POC Glucose 113 H 111 H Lactic Acid Calcium Phosphorus Magnesium Ferritin Direct Bilirubin AST ALT Lactate Dehydrogenase Total Creatine Kinase C-Reactive Protein Total Protein Albumin Triglycerides Arterial Blood Glucose Arterial Blood Ionized Calcium 4.4 L Urine Creatinine Urine Chloride Vancomycin Trough Coronavirus (PCR) Crossmatch 07/10/20 07/10/20 07/10/20 03:49 03:55 03:55 WBC 18.1 H RBC 2.37 L Hgb 6.8 L Hct 20.7 L MCHC RDW 16.9 H Lymph % (Auto) [place] % (Auto) Lymph # (Auto) [place] # (Auto) Eos # (Auto) Seg Neutrophils % Seg Neuts % (Manual) 79.0 H Lymphocytes % (Manual) 10.0 L Monocytes % (Manual) Nucleated RBC % 1.0 H Seg Neutrophils # Seg Neutrophils # Man 14.3 H Lymphocytes # (Manual) Monocytes # (Manual) Eosinophils # (Manual) 0.7 H PT INR APTT D-Dimer Heparin Anti-Xa Level ABG pH POC ABG pCO2 POC ABG pO2 ABG pO2 ABG HCO3 ABG Hemoglobin 7.7 L ABG Oxyhemoglobin ABG Sodium 130.3 L ABG Potassium 4.6 H ABG Chloride ABG Glucose Carboxyhemoglobin Sodium 136 L Potassium Chloride 96.0 L Carbon Dioxide BUN 76 H Creatinine 3.6 H Glucose POC Glucose Lactic Acid Calcium 7.4 L Phosphorus Magnesium Ferritin Direct Bilirubin AST ALT Lactate Dehydrogenase Total Creatine Kinase C-Reactive Protein Total Protein Albumin Triglycerides Arterial Blood Glucose Arterial Blood Ionized Calcium 4.2 L Urine Creatinine Urine Chloride Vancomycin Trough Coronavirus (PCR) Crossmatch 07/10/20 07/11/20 07/11/20 13:24 04:08 06:52 WBC 26.0 H RBC 2.91 L Hgb 8.2 L Hct 24.8 L MCHC RDW 17.2 H Lymph % (Auto) [place] % (Auto) Lymph # (Auto) [place] # (Auto) Eos # (Auto) Seg Neutrophils % Seg Neuts % (Manual) Lymphocytes % (Manual) 1.0 L Monocytes % (Manual) 11.0 H Nucleated RBC % Seg Neutrophils # Seg Neutrophils # Man 16.9 H Lymphocytes # (Manual) 0.3 L Monocytes # (Manual) 2.9 H Eosinophils # (Manual) 1.0 H PT INR APTT D-Dimer Heparin Anti-Xa Level ABG pH POC ABG pCO2 POC ABG pO2 ABG pO2 ABG HCO3 ABG Hemoglobin 8.5 L ABG Oxyhemoglobin ABG Sodium 130.6 L ABG Potassium 4.9 H ABG Chloride ABG Glucose 105 H Carboxyhemoglobin Sodium Potassium Chloride Carbon Dioxide BUN Creatinine Glucose POC Glucose Lactic Acid Calcium Phosphorus Magnesium Ferritin Direct Bilirubin AST ALT Lactate Dehydrogenase Total Creatine Kinase C-Reactive Protein Total Protein Albumin Triglycerides Arterial Blood Glucose 105 H Arterial Blood Ionized Calcium 4.1 L Urine Creatinine Urine Chloride Vancomycin Trough Coronavirus (PCR) Crossmatch See Detail 07/11/20 07/11/20 07/11/20 06:52 08:48 11:39 WBC RBC Hgb Hct MCHC RDW Lymph % (Auto) Faulk % (Auto) Lymph # (Auto) Faulk # (Auto) Eos # (Auto) Seg Neutrophils % Seg Neuts % (Manual) Lymphocytes % (Manual) Monocytes % (Manual) Nucleated RBC % Seg Neutrophils # Seg Neutrophils # Man Lymphocytes # (Manual) Monocytes # (Manual) Eosinophils # (Manual) PT INR APTT D-Dimer Heparin Anti-Xa Level ABG pH POC ABG pCO2 POC ABG pO2 ABG pO2 ABG HCO3 ABG Hemoglobin ABG Oxyhemoglobin ABG Sodium ABG Potassium ABG Chloride ABG Glucose Carboxyhemoglobin Sodium 133 L 134 L Potassium 5.3 H Chloride 93.5 L 94.8 L Carbon Dioxide BUN 101 H 99 H Creatinine 4.5 H 4.6 H Glucose 102 H POC Glucose 116 H Lactic Acid Calcium 7.8 L 7.6 L Phosphorus Magnesium Ferritin Direct Bilirubin AST ALT Lactate Dehydrogenase Total Creatine Kinase C-Reactive Protein Total Protein Albumin Triglycerides Arterial Blood Glucose Arterial Blood Ionized Calcium Urine Creatinine Urine Chloride Vancomycin Trough Coronavirus (PCR) Crossmatch 07/11/20 07/12/20 07/12/20 17:23 00:04 03:20 WBC RBC Hgb Hct MCHC RDW Lymph % (Auto) Faulk % (Auto) Lymph # (Auto) [place]ulk # (Auto) Eos # (Auto) Seg Neutrophils % Seg Neuts % (Manual) Lymphocytes % (Manual) Monocytes % (Manual) Nucleated RBC % Seg Neutrophils # Seg Neutrophils # Man Lymphocytes # (Manual) Monocytes # (Manual) Eosinophils # (Manual) PT INR APTT D-Dimer Heparin Anti-Xa Level ABG pH POC ABG pCO2 49.1 H POC ABG pO2 130.3 H ABG pO2 ABG HCO3 ABG Hemoglobin 8.7 L ABG Oxyhemoglobin ABG Sodium 135.2 L ABG Potassium 4.7 H ABG Chloride ABG Glucose 128 H Carboxyhemoglobin Sodium Potassium Chloride Carbon Dioxide BUN Creatinine Glucose POC Glucose 142 H 113 H Lactic Acid Calcium Phosphorus Magnesium Ferritin Direct Bilirubin AST ALT Lactate Dehydrogenase Total Creatine Kinase C-Reactive Protein Total Protein Albumin Triglycerides Arterial Blood Glucose 128 H Arterial Blood Ionized Calcium 4.4 L Urine Creatinine Urine Chloride Vancomycin Trough Coronavirus (PCR) Crossmatch 07/12/20 07/12/20 07/12/20 03:40 03:40 04:00 WBC 24.3 H RBC 2.83 L Hgb 8.0 L Hct 24.9 L MCHC RDW 17.7 H Lymph % (Auto) 5.6 L Faulk % (Auto) 7.4 H Lymph # (Auto) Faulk # (Auto) 1.8 H Eos # (Auto) 0.7 H Seg Neutrophils % 83.9 H Seg Neuts % (Manual) Lymphocytes % (Manual) Monocytes % (Manual) Nucleated RBC % Seg Neutrophils # 20.4 H Seg Neutrophils # Man Lymphocytes # (Manual) Monocytes # (Manual) Eosinophils # (Manual) PT INR APTT D-Dimer Heparin Anti-Xa Level ABG pH POC ABG pCO2 POC ABG pO2 ABG pO2 ABG HCO3 ABG Hemoglobin ABG Oxyhemoglobin ABG Sodium ABG Potassium ABG Chloride ABG Glucose Carboxyhemoglobin Sodium 134 L Potassium Chloride 95.5 L Carbon Dioxide BUN 79 H Creatinine 3.7 H Glucose 127 H POC Glucose Lactic Acid Calcium 7.8 L Phosphorus Magnesium Ferritin Direct Bilirubin AST ALT Lactate Dehydrogenase Total Creatine Kinase C-Reactive Protein Total Protein Albumin Triglycerides 246 H Arterial Blood Glucose Arterial Blood Ionized Calcium Urine Creatinine Urine Chloride Vancomycin Trough Coronavirus (PCR) Crossmatch 07/12/20 07/12/20 05:48 11:50 WBC RBC Hgb Hct MCHC RDW Lymph % (Auto) Faulk % (Auto) Lymph # (Auto) [place] # (Auto) Eos # (Auto) Seg Neutrophils % Seg Neuts % (Manual) Lymphocytes % (Manual) Monocytes % (Manual) Nucleated RBC % Seg Neutrophils # Seg Neutrophils # Man Lymphocytes # (Manual) Monocytes # (Manual) Eosinophils # (Manual) PT INR APTT D-Dimer Heparin Anti-Xa Level ABG pH POC ABG pCO2 POC ABG pO2 ABG pO2 ABG HCO3 ABG Hemoglobin ABG Oxyhemoglobin ABG Sodium ABG Potassium ABG Chloride ABG Glucose Carboxyhemoglobin Sodium Potassium Chloride Carbon Dioxide BUN Creatinine Glucose POC Glucose 136 H 113 H Lactic Acid Calcium Phosphorus Magnesium Ferritin Direct Bilirubin AST ALT Lactate Dehydrogenase Total Creatine Kinase C-Reactive Protein Total Protein Albumin Triglycerides Arterial Blood Glucose Arterial Blood Ionized Calcium Urine Creatinine Urine Chloride Vancomycin Trough Coronavirus (PCR) Crossmatch Chest x-ray: other (none today) Allied health notes reviewed: nursing
--- NOTE | 2020-07-12 15:20 | Progress Note ---
<DARYL OTTO - Last Filed: 07/12/20 15:13> Assessment and Plan Assessment and plan: Severe septic shock: Intermittent vasopressor support, secondary to COVID-19 infection, CCM and ID consulted (appreciate recommendations) COVID-19 pneumonia: S/p dexamethasone and remdesivir therapy, contact/droplet isolation, SPO2 monitoring, remains on mechanical ventilation (wean as tolerated), vitamin C/vitamin D/zinc, anticoagulation per protocol, trend inflammatory markers Acute metabolic encephalopathy: Due to severe sepsis and severe hypoxia, CT head with no acute process, supportive care Acute hypoxic respiratory failure: Due to severe COVID-19 pneumonia, remains on mechanical ventilation, CCM consulted (appreciate recommendations), VAP bundle Acute kidney injury likely secondary to acute tubular necrosis which progressed to hemodialysis: HD per nephrology, nephrology consulted (appreciate recommendations), HD initiated 06/22/2020, electrolyte corrections per HD SVT/proximal atrial fibrillation: Cardiology consulted (appreciate recommendations), s/p IV amiodarone transition to p.o., 06/29 echocardiogram s howed preserved ejection fraction, s/p heparin drip which was DC'd due to severe anemia requiring transfusion Elevated LFTs: Due to shock liver from severe sepsis and COVID-19 infection Anemia likely due to severe sepsis had declining renal function: S/p 4 units PRBC during his stay, transfuse for hemoglobin less than 7 Morbid obesity: Associated with a follow-up for COVID-19 infection, counseling for dietary and lifestyle modifications 1 stable outpatient DVT prophylaxis: GI prophylaxis, heparin subcu, SCDs to bilateral ultrasound in bed History Interval history: 59-year-old white male who was admitted for pneumonia secondary to Covid with associated respiratory failure and sepsis. 06/18: Patient got intubated overnight. Patient was placed on BiPAP to maintain oxygenation with 100% FiO2 but apparently he found to take off his argueta which made his oxygen saturation go down at 60s/50s and patient was found altered mental status. Code met was called immediately. Patient was transferred to ICU and intubated, patient currently on 2 pressors, intubated with 100% FiO2, renal function noted to be decline, nephrology consulted. Discussed with [place] physician Dr. Thompson and requested call back on Saturday. Poor prognosis, continue to monitor with aggressive supportive care. Also called family/ to update clinical status. 06/19: Repeat COVID test was positive. cont cefepime, remdesivir per ID recommendation. follow inflammatory markers, cbc, bmp. placed on heparin drip for atrial fib 06/20: Remains on mechanical ventilation, on 2 pressors, on heparin drip. discussed with and daughter by phone. Renal function declining. cont supportive care for now. 06/21: Renal function cont to decline, urine outpt sig decreased. started on lasix 80mg BID, plan to follow urine output, if no improvement patient need to start on HD. called and daughter today. updated all clinical details 06/22: Renal function continues to decline with uremia and hyperkalemia. Will need to proceed with hemodialysis. Nephrology discussed with the family and they agrees for the hemodialysis. Patient remains on pressor support and mechanical ventilation. Vas-Cath placed today by vascular started on hemodialysis today. 06/23: 2nd round of HD today, remains on 2 pressors. per RN not tolerating TF, has no record of BM since 06/18. start on stool softner. follow cbc/bmp. updated family( and daughter) by phone -all question answered to best of my knowledge and to their satisfaction. Patient remains critically ill with a very poor prognosis. 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 06/25/2020 continue supportive care very poor prognosis 06/26/2020 continue supportive care very poor prognosis family updated 06/27/2020 continue supportive care and weaning if possible 06/28/2020 continue supportive care, talk with at length 06/29: Resumed care. K level persistently high. give one dose of bicarbonate, plan for HD today, recheck k after HD. updated family by phone 06/30: updated family by phone. Patient remains on amiodarone drip and vasopressin. Getting HD at the bedside. Tolerating tube feeding at low rate. 07/01: Hb dropped to 6.4 today, transfuse one unit PRBC. patient is off pressor today, remains on amioderone. cont to monitor 07/02: Called patient and updated clinical details. Patient remains crit ically ill, still intubated. Patient's oxygen requirement and PEEP pressure has went down. Continue weaning protocol per critical care recommendation. Patient remains off pressor. Continue to wean off from amiodarone and plan to rate control with p.o. medications. Tolerating tube feeding. H&H stable today. Order for stool for occult blood. Monitor H&H and BMP. Continue to follow clinically 07/03: discussed with [place] physician today. Patient back on 100percent Fio2 since last night. planned for emergent Hd today. spiked fever, start IV Cefepime + Vancomycin renally dosed. Restarted Levophed today, remains on amiodarone drip. Patient family was updated by critical care attending today. 07/04: Patient has hemodialysis yesterday and also plan for today for volume overload and pulmonary edema. Patient currently on 80% FiO2. Remains on Levophed and amiodarone. Hemoglobin dropped to 6.7 without any evidence of active bleeding. LFTs remain stable. Repeat Covid test on 06/30 and 07/03 remains positive. Will transfuse another unit of packed RBC today. Called family for update -explained family that patient is critically ill with very poor prognosis. 07/05: Patient on 70% FiO2 with PEEP of 14. h/h stable after transfusion. hyperkalemia improved, cont sodiumbicarbonate pill with TF. follow BMP. off levophed today, remains on amioderone. poor prognosis. 07/06: Patient remains on amiodarone drip, maintaining BP without any pressor. FiO2 requirement trended down to 60% with PEEP of 14. Continue to follow clinically. Plan to wean off amiodarone drip as tolerated. Wean off from sedation as tolerated. Updated family. Patient remains critically ill with poor prognosis. 07/07: Called family for update. Off amiodarone drip today, patient also off pressor. FiO2 requirement trended up again to 80-100%. Continue to provide supportive care, monitor clinically. Having difficulty to wean off from the vent support. Patient is persistently positive for COVID-19 and COVID-19 antibody is nonreactive. Patient remains critically ill with very poor prognosis. 07/08: Continue supportive care. 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 Prognosis remains guarded to poor. Management per team. Critical care time 35-minute 07/09/20 patient is tachycardic. Heart rate 121. Hemoglobin 7.3. Patient is having hemodialysis. Continue supportive care. Patient having difficulty to wean off from the vent support. Prognosis is poor. Nephrology and cardiology follow-up. Recheck CBC BMP in the morning. Continue current management. 07/10/20 patient seen and examined, remains on full ventilator patient is doing better. Patient is off pressor. heart rate 123. Hemoglobin 6.8 and hematocrit 20.7. WBC is 18.1. Continue supportive care. Patient having difficulty to wean off from the vent support. We will started on Zosyn 4.5 g IV every 8 hours. Will transfuse 1 unit of packed red blood cell. Prognosis is poor. Nephrology and cardiology follow up. Recheck CBC BMP in the morning 07/11: remains off vasopressor, h/h appropriately responded to 1 unit PRBC. HD today. Remain on MV with fiO2 at 70%. peep 10. No acute events reported overnight. 07/12: Patient remains in atrial fibrillation on the manager monitoring, vasopress or support with Levophed and vasopressin, sedated with fentanyl and propofol. Vent settings: CMV 500/25/14/0.60. Patient remains hypercarbic on ABG Hospitalist Physical - Constitutional Vitals: Temp Pulse Resp BP Pulse Ox 98.3 F 100 H 25 H 105/67 98 07/12/20 12:03 07/12/20 15:00 07/12/20 15:00 07/12/20 15:00 07/12/20 15:00 General appearance: Present: no acute distress, well-nourished - EENT Eyes: Present: PERRL ENT: poor dentition, ulcerations - Neck Neck: Present: normal ROM - Respiratory Respiratory effort: normal Respiratory: bilateral: diminished, rhonchi - Cardiovascular Rhythm: irregularly irregular Heart Sounds: Present: S1 & S2. Absent: systolic murmur, diastolic murmur - Extremities Extremities: no ischemia, pulses intact, pulses symmetrical, No edema, normal temperature, normal color Peripheral Pulses: within normal limits - Abdominal General gastrointestinal: soft, non-tender, non-distended, normal bowel sounds - Integumentary Integumentary: Present: warm, dry - Psychiatric Psychiatric: other (Sedated) - Neurologic Neurologic: moves all extremities, other (Sedated) HEART Score - HEART Score Troponin: Troponin T < 0.010 ng/mL (0.00-0.029) 06/17/20 12:33 Results - Labs CBC & Chem 7: 07/12/20 03:40 07/12/20 03:40 Labs: Laboratory Last Values WBC 24.3 K/mm3 (4.5-11.0) H 07/12/20 03:40 RBC 2.83 M/mm3 (3.65-5.03) L 07/12/20 03:40 Hgb 8.0 gm/dl (11.8-15.2) L 07/12/20 03:40 Hct 24.9 % (35.5-45.6) L 07/12/20 03:40 MCV 88 fl (84-94) 07/12/20 03:40 MCH 28 pg (28-32) 07/12/20 03:40 MCHC 32 % (32-34) 07/12/20 03:40 RDW 17.7 % (13.2-15.2) H 07/12/20 03:40 Plt Count 285 K/mm3 (140-440) 07/12/20 03:40 Lymph % (Auto) 5.6 % (13.4-35.0) L 07/12/20 03:40 [place] % (Auto) 7.4 % (0.0-7.3) H 07/12/20 03:40 Eos % (Auto) 2.8 % (0.0-4.3) 07/12/20 03:40 Baso % (Auto) 0.3 % (0.0-1.8) 07/12/20 03:40 Lymph # (Auto) 1.4 K/mm3 (1.2-5.4) 07/12/20 03:40 [place] # (Auto) 1.8 K/mm3 (0.0-0.8) H 07/12/20 03:40 Eos # (Auto) 0.7 K/mm3 (0.0-0.4) H 07/12/20 03:40 Baso # (Auto) 0.1 K/mm3 (0.0-0.1) 07/12/20 03:40 Add Manual Diff Complete 07/11/20 06:52 Total Counted 100 07/11/20 06:52 Seg Neutrophils % 83.9 % (40.0-70.0) H 07/12/20 03:40 Seg Neuts % (Manual) 65.0 % (40.0-70.0) 07/11/20 06:52 Band Neutrophils % 7.0 % 07/11/20 06:52 Lymphocytes % (Manual) 1.0 % (13.4-35.0) L 07/11/20 06:52 Reactive Lymphs % (Man) 1.0 % 06/23/20 04:00 Monocytes % (Manual) 11.0 % (0.0-7.3) H 07/11/20 06:52 Eosinophils % (Manual) 4.0 % (0.0-4.3) 07/11/20 06:52 Metamyelocytes % 12.0 % 07/11/20 06:52 Myelocytes % 2.0 % 07/10/20 03:55 Nucleated RBC % Not Reportable 07/11/20 06:52 Seg Neutrophils # 20.4 K/mm3 (1.8-7.7) H 07/12/20 03:40 Seg Neutrophils # Man 16.9 K/mm3 (1.8-7.7) H 07/11/20 06:52 Band Neutrophils # 1.8 K/mm3 07/11/20 06:52 Lymphocytes # (Manual) 0.3 K/mm3 (1.2-5.4) L 07/11/20 06:52 Abs React Lymphs (Man) 0.0 K/mm3 07/11/20 06:52 Monocytes # (Manual) 2.9 K/mm3 (0.0-0.8) H 07/11/20 06:52 Eosinophils # (Manual) 1.0 K/mm3 (0.0-0.4) H 07/11/20 06:52 Basophils # (Manual) 0.0 K/mm3 (0.0-0.1) 07/11/20 06:52 Metamyelocytes # 3.1 K/mm3 07/11/20 06:52 Myelocytes # 0.0 K/mm3 07/11/20 06:52 Promyelocytes # 0.0 K/mm3 07/11/20 06:52 Blast Cells # 0.0 K/mm3 07/11/20 06:52 Pathologist Review Not Reportable 06/26/20 05:47 WBC Morphology Not Reportable 07/11/20 06:52 Hypersegmented Neuts Not Reportable 07/11/20 06:52 Hyposegmented Neuts Not Reportable 07/11/20 06:52 Hypogranular Neuts Not Reportable 07/11/20 06:52 Smudge Cells Not Reportable 07/11/20 06:52 Toxic Granulation 1+ 07/11/20 06:52 Toxic Vacuolation Not Reportable 07/11/20 06:52 Dohle Bodies Not Reportable 07/11/20 06:52 Pelger-Huet Anomaly Not Reportable 07/11/20 06:52 Carlito Rods Not Reportable 07/11/20 06:52 Platelet Estimate Consistent w auto 07/11/20 06:52 Clumped Platelets Not Reportable 07/11/20 06:52 Plt Clumps, EDTA Not Reportable 07/11/20 06:52 Large Platelets Few 07/11/20 06:52 Giant Platelets Not Reportable 07/11/20 06:52 Platelet Satelliting Not Reportable 07/11/20 06:52 Plt Morphology Comment Not Reportable 07/11/20 06:52 RBC Morphology Not Reportable 07/11/20 06:52 Dimorphic RBCs Not Reportable 07/11/20 06:52 Polychromasia Not Reportable 07/11/20 06:52 Hypochromasia Not Reportable 07/11/20 06:52 Poikilocytosis Not Reportable 07/11/20 06:52 Anisocytosis 1+ 07/11/20 06:52 Microcytosis Not Reportable 07/11/20 06:52 Macrocytosis Not Reportable 07/11/20 06:52 Spherocytes Not Reportable 07/11/20 06:52 Pappenheimer Bodies Not Reportable 07/11/20 06:52 Sickle Cells Not Reportable 07/11/20 06:52 Target Cells Not Reportable 07/11/20 06:52 Tear Drop Cells Not Reportable 07/11/20 06:52 Ovalocytes Not Reportable 07/11/20 06:52 Stomatocytes Rare 07/10/20 03:55 Helmet Cells Not Reportable 07/11/20 06:52 Brothers-Greenbriar Bodies Not Reportable 07/11/20 06:52 [place] Rings Not Reportable 07/11/20 06:52 Livier Cells Not Reportable 07/11/20 06:52 Bite Cells Not Reportable 07/11/20 06:52 Crenated Cell Not Reportable 07/11/20 06:52 Elliptocytes Not Reportable 07/11/20 06:52 Acanthocytes (Spur) Not Reportable 07/11/20 06:52 Rouleaux Not Reportable 07/11/20 06:52 Hemoglobin C Crystals Not Reportable 07/11/20 06:52 Schistocytes Not Reportable 07/11/20 06:52 Malaria parasites Not Reportable 07/11/20 06:52 Victoriano Bodies Not Reportable 07/11/20 06:52 Hem Pathologist Commnt No 07/11/20 06:52 PT 17.4 Sec. (12.2-14.9) H 06/26/20 05:47 INR 1.44 (0.87-1.13) H 06/26/20 05:47 APTT 28.5 Sec. (24.2-36.6) 06/26/20 05:47 D-Dimer 6608.00 ng/mlDDU (0-234) H 07/03/20 14:50 Heparin Anti-Xa Level < 0.10 U.I./ml (0.3-0.7) L 06/26/20 01:30 ABG pH 7.340 (7.320-7.450) 07/12/20 03:20 POC ABG pCO2 49.1 mmHg (32.0-48.0) H 07/12/20 03:20 ABG pCO2 56.4 mm Hg 07/05/20 04:30 POC ABG pO2 130.3 mmHg (83-108) H 07/12/20 03:20 ABG pO2 151.9 mm Hg (80.0-90.0) H 07/05/20 04:30 POC ABG HCO3 25.9 07/12/20 03:20 ABG HCO3 26.8 mmol/L (20.0-26.0) H 07/05/20 04:30 ABG O2 Saturation 98.7 % (95.0-99.0) 07/05/20 04:30 ABG O2 Content 5.0 (0.0-44) 07/04/20 05:20 POC ABG Base Excess -0.1 07/12/20 03:20 ABG Base Excess 0.1 mmol/L (-2.0-3.0) 07/05/20 04:30 ABG Hemoglobin 8.7 (12.0-17.5) L 07/12/20 03:20 ABG Oxyhemoglobin 95.7 (94-98) 07/11/20 04:08 ABG Carboxyhemoglobin 1.7 % (0.0-5.0) 07/05/20 04:30 ABG Methemoglobin 0.1 (0.0-1.5) 07/11/20 04:08 ABG Sodium 135.2 mmol/L (136.0-145.0) L 07/12/20 03:20 ABG Potassium 4.7 mmol/L (3.40-4.50) H 07/12/20 03:20 ABG Chloride 101.0 mmol/L (98-107) 07/12/20 03:20 ABG Glucose 128 mg/dL (65-95) H 07/12/20 03:20 Oxyhemoglobin 96.5 % (95.0-99.0) 07/05/20 04:30 Carboxyhemoglobin 1.0 (0.5-1.5) 07/11/20 04:08 FiO2 70 07/12/20 03:20 Sodium 134 mmol/L (137-145) L 07/12/20 03:40 Potassium 4.8 mmol/L (3.6-5.0) 07/12/20 03:40 Chloride 95.5 mmol/L (98-107) L 07/12/20 03:40 Carbon Dioxide 27 mmol/L (22-30) 07/12/20 03:40 Anion Gap 16 mmol/L 07/12/20 03:40 BUN 79 mg/dL (9-20) H 07/12/20 03:40 Creatinine 3.7 mg/dL (0.8-1.3) H 07/12/20 03:40 Estimated GFR 20 ml/min 07/12/20 03:40 BUN/Creatinine Ratio 21 % 07/12/20 03:40 Glucose 127 mg/dL (75-100) H 07/12/20 03:40 POC Glucose 113 mg/dL (70-105) H 07/12/20 11:50 Lactic Acid 1.10 mmol/L (0.7-2.0) 07/12/20 03:40 Calcium 7.8 mg/dL (8.4-10.2) L 07/12/20 03:40 Phosphorus 9.40 mg/dL (2.5-4.5) H 06/30/20 03:50 Magnesium 2.70 mg/dL (1.7-2.3) H 06/18/20 20:33 Ferritin 1171.0 ng/mL (30.0-300.0) H 07/03/20 14:50 Total Bilirubin 0.60 mg/dL (0.1-1.2) 07/05/20 08:21 Direct Bilirubin 0.5 mg/dL (0-0.2) H 07/05/20 08:21 Indirect Bilirubin 0.1 mg/dL 07/05/20 08:21 AST 75 units/L (5-40) H 07/05/20 08:21 ALT 86 units/L (7-56) H 07/05/20 08:21 Alkaline Phosphatase 107 units/L (35-129) 07/05/20 08:21 Lactate Dehydrogenase 525 units/L (91-180) H 07/03/20 14:50 Total Creatine Kinase 618 units/L (55-170) H 06/29/20 Unknown Troponin T < 0.010 ng/mL (0.00-0.029) 06/17/20 12:33 C-Reactive Protein 31.50 mg/dL (0.00-1.30) H 07/03/20 14:50 Total Protein 5.6 g/dL (6.3-8.2) L D 07/05/20 08:21 Albumin 1.9 g/dL (3.9-5) L 07/05/20 08:21 Albumin/Globulin Ratio 0.5 % 07/05/20 08:21 Triglycerides 246 mg/dL (2-149) H 07/12/20 04:00 Procalcitonin 8.39 ng/mL (<0.15) 07/12/20 03:40 Arterial Blood Glucose 128 mg/dL (65-95) H 07/12/20 03:20 Arterial Blood Ionized Calcium 4.4 mg/dL (4.6-5.3) L 07/12/20 03:20 Urine Color Yellow (Yellow) 06/17/20 15:57 Urine Turbidity Clear (Clear) 06/17/20 15:57 Urine pH 6.0 (5.0-7.0) 06/17/20 15:57 Ur Specific [place] 1.019 (1.003-1.030) 06/17/20 15:57 Urine Protein 30 mg/dl mg/dL (Negative) 06/17/20 15:57 Urine Glucose (UA) Neg mg/dL (Negative) 06/17/20 15:57 Urine Ketones Neg mg/dL (Negative) 06/17/20 15:57 Urine Blood Sm (Negative) 06/17/20 15:57 Urine Nitrite Neg (Negative) 06/17/20 15:57 Ur Reducing Substances Not Reportable 06/17/20 15:57 Urine Bilirubin Neg (Negative) 06/17/20 15:57 Urine Ictotest Not Reportable 06/17/20 15:57 Urine Urobilinogen < 2.0 mg/dL (<2.0) 06/17/20 15:57 Ur Leukocyte Esterase Neg (Negative) 06/17/20 15:57 Urine WBC (Auto) 1.0 /HPF (0.0-6.0) 06/17/20 15:57 Urine RBC (Auto) 2.0 /HPF (0.0-6.0) 06/17/20 15:57 Urine Mucus Few /HPF 06/17/20 15:57 Urine Creatinine 192.4 mg/dL (0.1-20.0) H 06/18/20 15:00 Urine Sodium 28 mmol/L 06/18/20 15:00 Urine Chloride 31.1 mmolL (110-250) L 06/18/20 15:00 Nasal Screen MRSA (PCR) Negative (Negative) 06/19/20 10:38 Vancomycin Trough 22.7 ug/mL (5.0-20.0) H 06/20/20 08:25 Coronavirus (PCR) Positive (Negative) A 07/03/20 10:10 Hepatitis A IgM Ab Non-reactive (NonReactive) 06/22/20 17:00 Hep Bs Antigen Non-reactive (Negative) 06/22/20 17:00 Hep B Core IgM Ab Non-reactive (NonReactive) 06/22/20 17:00 Hepatitis C Antibody Non-reactive (NonReactive) 06/22/20 17:00 SARS-CoV-2 IgG Ab Nonreactive (NonReactive) 07/04/20 05:20 Blood Type A POSITIVE 07/10/20 13:24 Antibody Screen Negative 02/28/21 13:24 Crossmatch See Detail 07/10/20 13:24 - Diagnostic Impressions Diagnostic Impressions: Echocardiogram 06/29/20 06:00 Transthoracic Echocardiogram Indication: A-fib BP: 105/47 HR: 99 Conclusions *The study is technically very difficult and limited due to poor acoustic windows. *Global left ventricular wall motion and contractility are within normal limits. *The estimated ejection fraction is 55-60%. *There is no pericardial effusion. Findings Procedure Info: The study quality is technically difficult. The study is technically limited due to poor acoustic windows. Left Ventricle: Global left ventricular wall motion and contractility are within normal limits. Global left ventricular systolic function is normal. The estimated ejection fraction is 55-60%. Left Atrium: The left atrium is not well visualized. Right Ventricle: The right ventricle is not well visualized. Right Atrium: The right atrium is not well visualized. Aortic Valve: The aortic valve is not well visualized. Mitral Valve: The mitral valve is not well visualized. Tricuspid Valve: The tricuspid valve is not well visualized. Pulmonic Valve: The pulmonic valve is not well visualized. Pericardium: There is no pericardial effusion. Venous: There is no change in the dimension of the inferior vena cava with respiration consistent with markedly increased right atrial pressure. [place]ell/IV: Voiding Method Incontinent Active Medications - Current Medications Current Medications: Generic Name Dose Route Start Last Admin Trade Name Freq PRN Reason Stop Dose Admin Acetaminophen 650 mg 06/17/20 14:17 07/03/20 09:16 Acetaminophen 325 Mg Tab PO 650 mg Q4H PRN Administration Pain MILD(1-3)/Fever >100.5/ROBERTS Amiodarone HCl 200 mg 07/08/20 12:30 07/12/20 09:20 Amiodarone 200 Mg Tab PO 200 mg BID CONNOR Administration Lipase/Protease/Amylase 1 each 06/19/20 12:15 Lipase 10,500/Protease 25,000/Amylase 43,750 (Units) Dr Kulkarni FEEDTUBE PRN PRN For Clogged Feeding Tube Ascorbic Acid 250 mg 06/17/20 22:00 07/12/20 09:20 Ascorbic Acid 250 Mg Tab PO 250 mg BID CONNOR Administration Cholecalciferol 1,000 unit 06/18/20 10:00 07/12/20 09:20 Cholecalciferol (Vit D3) 1000 Unit (25 Mcg) Tab PO 1,000 unit DAILY CONNOR Administration Dexamethasone 4 mg 07/12/20 10:00 07/12/20 09:20 Dexamethasone 4 Mg/Ml Vial IV 07/13/20 13:59 4 mg DAILY CONNOR Administration Dexamethasone 2 mg 07/14/20 10:00 Dexamethasone 4 Mg/Ml Vial IV 07/15/20 10:01 DAILY CONNOR Docusate Sodium 100 mg 06/23/20 15:00 07/12/20 09:20 Docusate Sodium 100 Mg/10 Ml Oral Liqd FEEDTUBE 100 mg BID CONNOR Administration Famotidine 20 mg 06/20/20 11:00 07/12/20 09:20 Famotidine 20 Mg/2 Ml Inj IV 20 mg DAILY CONNOR Administration Fentanyl 50 mcg 06/18/20 01:02 07/09/20 00:20 Fentanyl 100 Mcg/2 Ml Inj IV 50 mcg Q10MIN PRN Administration ANALGESIA Heparin Sodium (Porcine) 5,000 unit 06/22/20 12:53 06/30/20 13:36 Heparin 10,000 Unit/1 Ml Vial IV 5,000 unit PAM PRN Administration hemodialysis Heparin Sodium (Porcine) 5,000 unit 07/03/20 22:00 07/12/20 14:54 Heparin 5,000 Unit/1 Ml Vial SUB-Q 5,000 unit Q8HR CONNOR Administration Hydrophilic Ointment 1 applic 06/17/20 22:52 07/02/20 20:45 Lip Therapy Vaseline TP 1 applic Q2HR PRN Administration Dry Lips Propofol 1,000 mg in 100 mls @ 3.402 mls/hr 06/18/20 01:00 07/12/20 01:15 Diprivan 10 Mg/Ml IV 10 mcg/kg/min TITR CONNOR 6.804 mls/hr Administration Protocol 5 MCG/KG/MIN Fentanyl Citrate 2,000 mcg in 100 mls @ 5.67 mls/hr 06/18/20 02:00 07/12/20 14:38 Fentanyl Drip Premix IV 3 mcg/kg/hr TITR CONNOR 17.01 mls/hr Administration Protocol 1 MCG/KG/HR Sodium Chloride 500 mls @ 1 mls/hr 06/18/20 09:38 06/19/20 21:37 Nacl 0.9% 500 Ml IV 0 mls/hr DIRECT PRN Infusion ARTERIAL LINE FLUSH Norepinephrine 4 mg in 250 mls @ 7.5 mls/hr 07/08/20 02:06 07/12/20 09:40 Levophed Drip 4 Mg/Ns 250 Ml IV 0 mcg/min TITR CONNOR 0 mls/hr Titration Protocol 2 MCG/MIN Vasopressin 20 unit/ Sodium 101 mls @ 9.09 mls/hr 07/11/20 11:00 07/12/20 09:19 Chloride IV 0.03 units/min TITR CONNOR 9.09 mls/hr Administration Protocol 0.03 UNITS/MIN Sodium Chloride 100 mls @ 999 mls/hr 07/12/20 10:00 Nacl 0.9% IV PAM PRN Hypotension Insulin Human Regular 0 units 06/18/20 12:00 07/12/20 12:18 Insulin Regular, Human 100 Units/1 Ml SUB-Q Not Given Q6HR [facility] Protocol Multi-Ingred Cream/Lotion/Oil/Oint 1 applic 06/17/20 22:52 Mineral Oil/Petrolatum, White Ophth Oint 3.5 Gm OU Q4HR PRN Dry Eye(s) Ondansetron HCl 4 mg 06/17/20 14:17 Ondansetron 4 Mg/2 Ml Inj IV Q8H PRN Nausea And Vomiting Polyethylene Glycol 17 gm 06/23/20 15:00 07/12/20 09:20 Polyethylene Glycol 3350 17 Gm Powder PO 17 gm QDAY CONNOR Administration Quetiapine Fumarate 200 mg 06/28/20 13:00 07/12/20 09:20 Quetiapine 200 Mg Tab PO 200 mg BID CONNOR Administration Simple Syrup 15 ml 06/19/20 12:15 Simple Syrup 15 Ml FEEDTUBE PRN PRN Hypoglycemia Simple Syrup 30 ml 06/19/20 12:15 Simple Syrup 15 Ml FEEDTUBE PRN PRN Hypoglycemia Sodium Bicarbonate 325 mg 06/19/20 12:15 07/11/20 20:00 Sodium Bicarbonate 325 Mg Tab FEEDTUBE 325 mg PRN PRN Administration For Clogged Feeding Tube Sodium Bicarbonate 650 mg 07/04/20 10:00 07/12/20 14:38 Sodium Bicarbonate 650 Mg Tab PO 650 mg TID CONNOR Administration Sodium Chloride 10 ml 06/17/20 22:00 07/12/20 09:29 Sodium Chloride 0.9% 10 Ml Flush Syringe IV 10 ml BID CONNOR Administration Sodium Chloride 10 ml 06/17/20 14:17 Sodium Chloride 0.9% 10 Ml Flush Syringe IV PRN PRN LINE FLUSH Sodium Polystyrene Sulfonate 15 gm 07/03/20 11:19 07/05/20 10:36 Sodium Polystyrene 15 Gm/60 Ml Oral Liqd PO 15 gm Q6HR PRN Administration Hyperkalemia Zinc Sulfate 220 mg 06/17/20 22:00 07/12/20 09:20 Zinc Sulfate 220 Mg Cap PO 220 mg BID CONNOR Administration Nutrition/Malnutrition Assess - Dietary Evaluation Nutrition/Malnutrition Findings: Nutrition Notes Start: 06/18/20 10:28 Freq: Status: Active Protocol: Document 07/12/20 11:11 AL (Rec: 07/12/20 11:15 AL [id number]) Co-Sign 07/12/20 11:11 LP Nutrition Notes Initial or Follow up Reassessment Current Diagnosis Acute Kidney Injury,Sepsis, Respiratory Failure Other Pertinent Diagnosis COVID-19 (+), pneu Current Diet Nepro 1.8 at 40ml/hr Labs/Tests Na 134 BUN 79 Cr 3.7 Pertinent Medications Propofol at 6.8 ml/hr (180 kcal) Levophed Vasopressin Height 6 ft Weight 160 kg [place] Body Weight (kg) 80.90 BMI 47.8 Weight change and time frame Wt change of 30 kg noted. Pt on HD Weight Status Obese Subjective/Other Information FU for stable TF. Pt tolerating TF at 40 ml/hr ( goal rate). Percent of energy/protein needs met: 89%/48% Burn Absent Trauma Absent Current % PO Negligible Minimum of two criteria No physical signs of malnutrition #2 Nutrition Diagnosis Overweight/obesity Diagnosis Progress(for reassessment Continues documentation) #1 Nutrition Diagnosis Inadequate oral intake Diagnosis Progress(for reassessment Continues documentation) Is patient on ventilator? Yes Is Patient Ambulatory and/or Out of Bed No REE-([facility]-confined to bed) 2929.632 Kcal/Kg value to use for calculation 12 Approximate Energy Requirements Using 1920 kcal/Kg Calculation Used for Recommendations Kcal/kg Additional Notes Protein needs up to >2 g/kg IBW: 162 g Fluid needs: 1,000 ml + output Nutrition Intervention Change Diet Order: TF Nutrition Support: Nepro 1.8 at 50 ml/hr Flush 215 ml q4h Kcal 2,160 Protein (gm) 97 Fluid (mL) 872 Goal #1 Tolerate TF at goal rate Goal #2 Meet energy and protein needs as best as possible. Anticipated Discharge Needs: Unable to determine at the time. Follow-Up By: 07/19/20 Additional Comments F/U for TF tolerance and vent status <ZEESHAN CHAIDEZ Josue - Last Filed: 07/13/20 07:14> Assessment and Plan Assessment and plan: I saw and evaluated the patient. I agree with the findings and the plan of care as documented in the Nurse Practitioner's~note, with the following corrections and additions. The high probability of a clinically significant, sudden or life threatening deterioration of the [PULMONARY] system(s) required my full and direct attention, intervention and personal management. The aggregate critical care time was [35] minutes. This time is in addition to time spent performing reported procedures but includes the following: [X] Data Review and interpretation [X] Patient assessment and monitoring of vital signs [X] Documentation [X] Medication orders and management Hospitalist Physical - Constitutional Vitals: Temp Pulse Resp BP Pulse Ox 99.5 F 120 H 20 107/65 95 07/13/20 03:43 07/13/20 06:00 07/13/20 06:00 07/13/20 06:00 07/13/20 06:00 HEART Score - HEART Score Troponin: Troponin T < 0.010 ng/mL (0.00-0.029) 06/17/20 12:33 Results - Labs CBC & Chem 7: 07/12/20 03:40 07/12/20 03:40 Labs: Laboratory Last Values WBC 24.3 K/mm3 (4.5-11.0) H 07/12/20 03:40 RBC 2.83 M/mm3 (3.65-5.03) L 07/12/20 03:40 Hgb 8.0 gm/dl (11.8-15.2) L 07/12/20 03:40 Hct 24.9 % (35.5-45.6) L 07/12/20 03:40 MCV 88 fl (84-94) 07/12/20 03:40 MCH 28 pg (28-32) 07/12/20 03:40 MCHC 32 % (32-34) 07/12/20 03:40 RDW 17.7 % (13.2-15.2) H 07/12/20 03:40 Plt Count 285 K/mm3 (140-440) 07/12/20 03:40 Lymph % (Auto) 5.6 % (13.4-35.0) L 07/12/20 03:40 [place] % (Auto) 7.4 % (0.0-7.3) H 07/12/20 03:40 Eos % (Auto) 2.8 % (0.0-4.3) 07/12/20 03:40 Baso % (Auto) 0.3 % (0.0-1.8) 07/12/20 03:40 Lymph # (Auto) 1.4 K/mm3 (1.2-5.4) 07/12/20 03:40 [place] # (Auto) 1.8 K/mm3 (0.0-0.8) H 07/12/20 03:40 Eos # (Auto) 0.7 K/mm3 (0.0-0.4) H 07/12/20 03:40 Baso # (Auto) 0.1 K/mm3 (0.0-0.1) 07/12/20 03:40 Add Manual Diff Complete 07/11/20 06:52 Total Counted 100 07/11/20 06:52 Seg Neutrophils % 83.9 % (40.0-70.0) H 07/12/20 03:40 Seg Neuts % (Manual) 65.0 % (40.0-70.0) 07/11/20 06:52 Band Neutrophils % 7.0 % 07/11/20 06:52 Lymphocytes % (Manual) 1.0 % (13.4-35.0) L 07/11/20 06:52 Reactive Lymphs % (Man) 1.0 % 06/23/20 04:00 Monocytes % (Manual) 11.0 % (0.0-7.3) H 07/11/20 06:52 Eosinophils % (Manual) 4.0 % (0.0-4.3) 07/11/20 06:52 Metamyelocytes % 12.0 % 07/11/20 06:52 Myelocytes % 2.0 % 07/10/20 03:55 Nucleated RBC % Not Reportable 07/11/20 06:52 Seg Neutrophils # 20.4 K/mm3 (1.8-7.7) H 07/12/20 03:40 Seg Neutrophils # Man 16.9 K/mm3 (1.8-7.7) H 07/11/20 06:52 Band Neutrophils # 1.8 K/mm3 07/11/20 06:52 Lymphocytes # (Manual) 0.3 K/mm3 (1.2-5.4) L 07/11/20 06:52 Abs React Lymphs (Man) 0.0 K/mm3 07/11/20 06:52 Monocytes # (Manual) 2.9 K/mm3 (0.0-0.8) H 07/11/20 06:52 Eosinophils # (Manual) 1.0 K/mm3 (0.0-0.4) H 07/11/20 06:52 Basophils # (Manual) 0.0 K/mm3 (0.0-0.1) 07/11/20 06:52 Metamyelocytes # 3.1 K/mm3 07/11/20 06:52 Myelocytes # 0.0 K/mm3 07/11/20 06:52 Promyelocytes # 0.0 K/mm3 07/11/20 06:52 Blast Cells # 0.0 K/mm3 07/11/20 06:52 Pathologist Review Not Reportable 06/26/20 05:47 WBC Morphology Not Reportable 07/11/20 06:52 Hypersegmented Neuts Not Reportable 07/11/20 06:52 Hyposegmented Neuts Not Reportable 07/11/20 06:52 Hypogranular Neuts Not Reportable 07/11/20 06:52 Smudge Cells Not Reportable 07/11/20 06:52 Toxic Granulation 1+ 07/11/20 06:52 Toxic Vacuolation Not Reportable 07/11/20 06:52 Dohle Bodies Not Reportable 07/11/20 06:52 Pelger-Huet Anomaly Not Reportable 07/11/20 06:52 Carlito Rods Not Reportable 07/11/20 06:52 Platelet Estimate Consistent w auto 07/11/20 06:52 Clumped Platelets Not Reportable 07/11/20 06:52 Plt Clumps, EDTA Not Reportable 07/11/20 06:52 Large Platelets Few 07/11/20 06:52 Giant Platelets Not Reportable 07/11/20 06:52 Platelet Satelliting Not Reportable 07/11/20 06:52 Plt Morphology Comment Not Reportable 07/11/20 06:52 RBC Morphology Not Reportable 07/11/20 06:52 Dimorphic RBCs Not Reportable 07/11/20 06:52 Polychromasia Not Reportable 07/11/20 06:52 Hypochromasia Not Reportable 07/11/20 06:52 Poikilocytosis Not Reportable 07/11/20 06:52 Anisocytosis 1+ 07/11/20 06:52 Microcytosis Not Reportable 07/11/20 06:52 Macrocytosis Not Reportable 07/11/20 06:52 Spherocytes Not Reportable 07/11/20 06:52 Pappenheimer Bodies Not Reportable 07/11/20 06:52 Sickle Cells Not Reportable 07/11/20 06:52 Target Cells Not Reportable 07/11/20 06:52 Tear Drop Cells Not Reportable 07/11/20 06:52 Ovalocytes Not Reportable 07/11/20 06:52 Stomatocytes Rare 07/10/20 03:55 Helmet Cells Not Reportable 07/11/20 06:52 Brothers-Green[place]ri[place] Bodies Not Reportable 07/11/20 06:52 [place] Rings Not Reportable 07/11/20 06:52 Livier Cells Not Reportable 07/11/20 06:52 Bite Cells Not Reportable 07/11/20 06:52 Crenated Cell Not Reportable 07/11/20 06:52 Elliptocytes Not Reportable 07/11/20 06:52 Acanthocytes (Spur) Not Reportable 07/11/20 06:52 Rouleaux Not Reportable 07/11/20 06:52 Hemoglobin C Crystals Not Reportable 07/11/20 06:52 Schistocytes Not Reportable 07/11/20 06:52 Malaria parasites Not Reportable 07/11/20 06:52 Victoriano Bodies Not Reportable 07/11/20 06:52 Hem Pathologist Commnt No 07/11/20 06:52 PT 17.4 Sec. (12.2-14.9) H 06/26/20 05:47 INR 1.44 (0.87-1.13) H 06/26/20 05:47 APTT 28.5 Sec. (24.2-36.6) 06/26/20 05:47 D-Dimer 6608.00 ng/mlDDU (0-234) H 07/03/20 14:50 Heparin Anti-Xa Level < 0.10 U.I./ml (0.3-0.7) L 06/26/20 01:30 ABG pH 7.347 (7.320-7.450) 07/13/20 03:11 POC ABG pCO2 49.0 mmHg (32.0-48.0) H 07/13/20 03:11 ABG pCO2 56.4 mm Hg 07/05/20 04:30 POC ABG pO2 69.6 mmHg (83-108) L 07/13/20 03:11 ABG pO2 151.9 mm Hg (80.0-90.0) H 07/05/20 04:30 POC ABG HCO3 26.3 07/13/20 03:11 ABG HCO3 26.8 mmol/L (20.0-26.0) H 07/05/20 04:30 ABG O2 Saturation 98.7 % (95.0-99.0) 07/05/20 04:30 ABG O2 Content 5.0 (0.0-44) 07/04/20 05:20 POC ABG Base Excess 0.4 07/13/20 03:11 ABG Base Excess 0.1 mmol/L (-2.0-3.0) 07/05/20 04:30 ABG Hemoglobin 8.5 (12.0-17.5) L 07/13/20 03:11 ABG Oxyhemoglobin 90.5 (94-98) L 07/13/20 03:11 ABG Carboxyhemoglobin 1.7 % (0.0-5.0) 07/05/20 04:30 ABG Methemoglobin 0.1 (0.0-1.5) 07/13/20 03:11 ABG Sodium 133.6 mmol/L (136.0-145.0) L 07/13/20 03:11 ABG Potassium 5.1 mmol/L (3.40-4.50) H 07/13/20 03:11 ABG Chloride 100.0 mmol/L (98-107) 07/13/20 03:11 ABG Glucose 104 mg/dL (65-95) H 07/13/20 03:11 Oxyhemoglobin 96.5 % (95.0-99.0) 07/05/20 04:30 Carboxyhemoglobin 0.8 (0.5-1.5) 07/13/20 03:11 FiO2 60.0 07/13/20 03:11 Sodium 134 mmol/L (137-145) L 07/12/20 03:40 Potassium 4.8 mmol/L (3.6-5.0) 07/12/20 03:40 Chloride 95.5 mmol/L (98-107) L 07/12/20 03:40 Carbon Dioxide 27 mmol/L (22-30) 07/12/20 03:40 Anion Gap 16 mmol/L 07/12/20 03:40 BUN 79 mg/dL (9-20) H 07/12/20 03:40 Creatinine 3.7 mg/dL (0.8-1.3) H 07/12/20 03:40 Estimated GFR 20 ml/min 07/12/20 03:40 BUN/Creatinine Ratio 21 % 07/12/20 03:40 Glucose 127 mg/dL (75-100) H 07/12/20 03:40 POC Glucose 100 mg/dL (70-105) 07/13/20 05:34 Lactic Acid 1.10 mmol/L (0.7-2.0) 07/12/20 03:40 Calcium 7.8 mg/dL (8.4-10.2) L 07/12/20 03:40 Phosphorus 9.40 mg/dL (2.5-4.5) H 06/30/20 03:50 Magnesium 2.70 mg/dL (1.7-2.3) H 06/18/20 20:33 Ferritin 1171.0 ng/mL (30.0-300.0) H 07/03/20 14:50 Total Bilirubin 0.60 mg/dL (0.1-1.2) 07/05/20 08:21 Direct Bilirubin 0.5 mg/dL (0-0.2) H 07/05/20 08:21 Indirect Bilirubin 0.1 mg/dL 07/05/20 08:21 AST 75 units/L (5-40) H 07/05/20 08:21 ALT 86 units/L (7-56) H 07/05/20 08:21 Alkaline Phosphatase 107 units/L (35-129) 07/05/20 08:21 Lactate Dehydrogenase 525 units/L (91-180) H 07/03/20 14:50 Total Creatine Kinase 618 units/L (55-170) H 06/29/20 Unknown Troponin T < 0.010 ng/mL (0.00-0.029) 06/17/20 12:33 C-Reactive Protein 31.50 mg/dL (0.00-1.30) H 07/03/20 14:50 Total Protein 5.6 g/dL (6.3-8.2) L D 07/05/20 08:21 Albumin 1.9 g/dL (3.9-5) L 07/05/20 08:21 Albumin/Globulin Ratio 0.5 % 07/05/20 08:21 Triglycerides 246 mg/dL (2-149) H 07/12/20 04:00 Procalcitonin 8.39 ng/mL (<0.15) 07/12/20 03:40 Arterial Blood Glucose 104 mg/dL (65-95) H 07/13/20 03:11 Arterial Blood Ionized Calcium 4.3 mg/dL (4.6-5.3) L 07/13/20 03:11 Urine Color Yellow (Yellow) 06/17/20 15:57 Urine Turbidity Clear (Clear) 06/17/20 15:57 Urine pH 6.0 (5.0-7.0) 06/17/20 15:57 Ur Specific [place] 1.019 (1.003-1.030) 06/17/20 15:57 Urine Protein 30 mg/dl mg/dL (Negative) 06/17/20 15:57 Urine Glucose (UA) Neg mg/dL (Negative) 06/17/20 15:57 Urine Ketones Neg mg/dL (Negative) 06/17/20 15:57 Urine Blood Sm (Negative) 06/17/20 15:57 Urine Nitrite Neg (Negative) 06/17/20 15:57 Ur Reducing Substances Not Reportable 06/17/20 15:57 Urine Bilirubin Neg (Negative) 06/17/20 15:57 Urine Ictotest Not Reportable 06/17/20 15:57 Urine Urobilinogen < 2.0 mg/dL (<2.0) 06/17/20 15:57 Ur Leukocyte Esterase Neg (Negative) 06/17/20 15:57 Urine WBC (Auto) 1.0 /HPF (0.0-6.0) 06/17/20 15:57 Urine RBC (Auto) 2.0 /HPF (0.0-6.0) 06/17/20 15:57 Urine Mucus Few /HPF 06/17/20 15:57 Urine Creatinine 192.4 mg/dL (0.1-20.0) H 06/18/20 15:00 Urine Sodium 28 mmol/L 06/18/20 15:00 Urine Chloride 31.1 mmolL (110-250) L 06/18/20 15:00 Nasal Screen MRSA (PCR) Negative (Negative) 06/19/20 10:38 Vancomycin Trough 22.7 ug/mL (5.0-20.0) H 06/20/20 08:25 Coronavirus (PCR) Positive (Negative) A 07/03/20 10:10 Hepatitis A IgM Ab Non-reactive (NonReactive) 06/22/20 17:00 Hep Bs Antigen Non-reactive (Negative) 06/22/20 17:00 Hep B Core IgM Ab Non-reactive (NonReactive) 06/22/20 17:00 Hepatitis C Antibody Non-reactive (NonReactive) 06/22/20 17:00 SARS-CoV-2 IgG Ab Nonreactive (NonReactive) 07/04/20 05:20 Blood Type A POSITIVE 07/10/20 13:24 Antibody Screen Negative 07/10/20 13:24 Crossmatch See Detail 07/10/20 13:24 - Diagnostic Impressions Diagnostic Impressions: Echocardiogram 06/29/20 06:00 Transthoracic Echocardiogram Indication: A-fib BP: 105/47 HR: 99 Conclusions *The study is technically very difficult and limited due to poor acoustic windows. *Global left ventricular wall motion and contractility are within normal limits. *The estimated ejection fraction is 55-60%. *There is no pericardial effusion. Findings Procedure Info: The study quality is technically difficult. The study is technically limited due to poor acoustic windows. Left Ventricle: Global left ventricular wall motion and contractility are within normal limits. Global left ventricular systolic function is normal. The estimated ejection fraction is 55-60%. Left Atrium: The left atrium is not well visualized. Right Ventricle: The right ventricle is not well visualized. Right Atrium: The right atrium is not well visualized. Aortic Valve: The aortic valve is not well visualized. Mitral Valve: The mitral valve is not well visualized. Tricuspid Valve: The tricuspid valve is not well visualized. Pulmonic Valve: The pulmonic valve is not well visualized. Pericardium: There is no pericardial effusion. Venous: There is no change in the dimension of the inferior vena cava with respiration consistent with markedly increased right atrial pressure. [place]ell/IV: Voiding Method Incontinent Active Medications - Current Medications Current Medications: Generic Name Dose Route Start Last Admin Trade Name Freq PRN Reason Stop Dose Admin Acetaminophen 650 mg 06/17/20 14:17 07/03/20 09:16 Acetaminophen 325 Mg Tab PO 650 mg Q4H PRN Administration Pain MILD(1-3)/Fever >100.5/ROBERTS Amiodarone HCl 200 mg 07/08/20 12:30 07/12/20 21:34 Amiodarone 200 Mg Tab PO 200 mg BID CONNOR Administration Lipase/Protease/Amylase 1 each 06/19/20 12:15 Lipase 10,500/Protease 25,000/Amylase 43,750 (Units) Dr Kulkarni FEEDTUBE PRN PRN For Clogged Feeding Tube Ascorbic Acid 250 mg 06/17/20 22:00 07/12/20 21:34 Ascorbic Acid 250 Mg Tab PO 250 mg BID CONNOR Administration Cholecalciferol 1,000 unit 06/18/20 10:00 07/12/20 09:20 Cholecalciferol (Vit D3) 1000 Unit (25 Mcg) Tab PO 1,000 unit DAILY CONNOR Administration Dexamethasone 4 mg 07/12/20 10:00 07/12/20 09:20 Dexamethasone 4 Mg/Ml Vial IV 07/13/20 13:59 4 mg DAILY CONNOR Administration Dexamethasone 2 mg 07/14/20 10:00 Dexamethasone 4 Mg/Ml Vial IV 07/15/20 10:01 DAILY CONNOR Docusate Sodium 100 mg 06/23/20 15:00 07/12/20 21:35 Docusate Sodium 100 Mg/10 Ml Oral Liqd FEEDTUBE 100 mg BID CONNOR Administration Famotidine 20 mg 06/20/20 11:00 07/12/20 09:20 Famotidine 20 Mg/2 Ml Inj IV 20 mg DAILY CONNOR Administration Fentanyl 50 mcg 02/06/21 01:02 07/09/20 00:20 Fentanyl 100 Mcg/2 Ml Inj IV 50 mcg Q10MIN PRN Administration ANALGESIA Heparin Sodium (Porcine) 5,000 unit 06/22/20 12:53 06/30/20 13:36 Heparin 10,000 Unit/1 Ml Vial IV 5,000 unit PAM PRN Administration hemodialysis Heparin Sodium (Porcine) 5,000 unit 07/03/20 22:00 07/13/20 06:15 Heparin 5,000 Unit/1 Ml Vial SUB-Q 5,000 unit Q8HR CONNOR Administration Hydrophilic Ointment 1 applic 06/17/20 22:52 07/12/20 20:22 Lip Therapy Vaseline TP 1 applic Q2HR PRN Administration Dry Lips Propofol 1,000 mg in 100 mls @ 3.402 mls/hr 06/18/20 01:00 07/13/20 02:46 Diprivan 10 Mg/Ml IV 10 mcg/kg/min TITR CONNOR 6.804 mls/hr Administration Protocol 5 MCG/KG/MIN Fentanyl Citrate 2,000 mcg in 100 mls @ 5.67 mls/hr 06/18/20 02:00 07/13/20 06:14 Fentanyl Drip Premix IV 3 mcg/kg/hr TITR CONNOR 17.01 mls/hr Administration Protocol 1 MCG/KG/HR Sodium Chloride 500 mls @ 1 mls/hr 06/18/20 09:38 06/19/20 21:37 Nacl 0.9% 500 Ml IV 0 mls/hr DIRECT PRN Infusion ARTERIAL LINE FLUSH Norepinephrine 4 mg in 250 mls @ 7.5 mls/hr 07/08/20 02:06 07/12/20 09:40 Levophed Drip 4 Mg/Ns 250 Ml IV 0 mcg/min TITR CONNOR 0 mls/hr Titration Protocol 2 MCG/MIN Vasopressin 20 unit/ Sodium 101 mls @ 9.09 mls/hr 07/11/20 11:00 07/13/20 02:36 Chloride IV 0.03 units/min TITR CONNOR 9.09 mls/hr Titration Protocol 0.03 UNITS/MIN Sodium Chloride 100 mls @ 999 mls/hr 07/12/20 10:00 Nacl 0.9% IV PAM PRN Hypotension Insulin Human Regular 0 units 06/18/20 12:00 07/13/20 06:04 Insulin Regular, Human 100 Units/1 Ml SUB-Q Not Given Q6HR [facility] Protocol Multi-Ingred Cream/Lotion/Oil/Oint 1 applic 06/17/20 22:52 07/12/20 20:22 Mineral Oil/Petrolatum, White Ophth Oint 3.5 Gm OU 1 applic Q4HR PRN Administration Dry Eye(s) Ondansetron HCl 4 mg 06/17/20 14:17 Ondansetron 4 Mg/2 Ml Inj IV Q8H PRN Nausea And Vomiting Polyethylene Glycol 17 gm 06/23/20 15:00 07/12/20 09:20 Polyethylene Glycol 3350 17 Gm Powder PO 17 gm QDAY CONNOR Administration Quetiapine Fumarate 200 mg 06/28/20 13:00 07/12/20 21:34 Quetiapine 200 Mg Tab PO 200 mg BID CONNOR Administration Simple Syrup 15 ml 06/19/20 12:15 Simple Syrup 15 Ml FEEDTUBE PRN PRN Hypoglycemia Simple Syrup 30 ml 06/19/20 12:15 Simple Syrup 15 Ml FEEDTUBE PRN PRN Hypoglycemia Sodium Bicarbonate 325 mg 06/19/20 12:15 07/11/20 20:00 Sodium Bicarbonate 325 Mg Tab FEEDTUBE 325 mg PRN PRN Administration For Clogged Feeding Tube Sodium Bicarbonate 650 mg 07/04/20 10:00 07/12/20 20:20 Sodium Bicarbonate 650 Mg Tab PO 650 mg TID CONNOR Administration Sodium Chloride 10 ml 06/17/20 22:00 07/12/20 21:35 Sodium Chloride 0.9% 10 Ml Flush Syringe IV 10 ml BID CONNOR Administration Sodium Chloride 10 ml 06/17/20 14:17 Sodium Chloride 0.9% 10 Ml Flush Syringe IV PRN PRN LINE FLUSH Sodium Polystyrene Sulfonate 15 gm 07/03/20 11:19 07/05/20 10:36 Sodium Polystyrene 15 Gm/60 Ml Oral Liqd PO 15 gm Q6HR PRN Administration Hyperkalemia Zinc Sulfate 220 mg 06/17/20 22:00 07/12/20 21:35 Zinc Sulfate 220 Mg Cap PO 220 mg BID CONNOR Administration Nutrition/Malnutrition Assess - Dietary Evaluation Nutrition/Malnutrition Findings: Nutrition Notes Start: 06/18/20 10:28 Freq: Status: Active Protocol: Document 07/12/20 11:11 AL (Rec: 03/02/21 11:15 AL [id number]) Co-Sign 07/12/20 11:11 LP Nutrition Notes Initial or Follow up Reassessment Current Diagnosis Acute Kidney Injury,Sepsis, Respiratory Failure Other Pertinent Diagnosis COVID-19 (+), pneu Current Diet Nepro 1.8 at 40ml/hr Labs/Tests Na 134 BUN 79 Cr 3.7 Pertinent Medications Propofol at 6.8 ml/hr (180 kcal) Levophed Vasopressin Height 6 ft Weight 160 kg [place] Body Weight (kg) 80.90 BMI 47.8 Weight change and time frame Wt change of 30 kg noted. Pt on HD Weight Status Obese Subjective/Other Information FU for stable TF. Pt tolerating TF at 40 ml/hr ( goal rate). Percent of energy/protein needs met: 89%/48% Burn Absent Trauma Absent Current % PO Negligible Minimum of two criteria No physical signs of malnutrition #2 Nutrition Diagnosis Overweight/obesity Diagnosis Progress(for reassessment Continues documentation) #1 Nutrition Diagnosis Inadequate oral intake Diagnosis Progress(for reassessment Continues documentation) Is patient on ventilator? Yes Is Patient Ambulatory and/or Out of Bed No REE-([facility]-confined to bed) 2929.632 Kcal/Kg value to use for calculation 12 Approximate Energy Requirements Using 1920 kcal/Kg Calculation Used for Recommendations Kcal/kg Additional Notes Protein needs up to >2 g/kg IBW: 162 g Fluid needs: 1,000 ml + output Nutrition Intervention Change Diet Order: TF Nutrition Support: Nepro 1.8 at 50 ml/hr Flush 215 ml q4h Kcal 2,160 Protein (gm) 97 Fluid (mL) 872 Goal #1 Tolerate TF at goal rate Goal #2 Meet energy and protein needs as best as possible. Anticipated Discharge Needs: Unable to determine at the time. Follow-Up By: 07/19/20 Additional Comments F/U for TF tolerance and vent status
[2020-07-12] MEDS: LIP THERAPY VASELINE TP PRN (20:22)
[2020-07-13] MEDS: INSULIN REGULAR, HUMAN 100 UNITS/1 ML SUB-Q SCH ×5 (00:03→23:46)
[2020-07-13] MEDS: fentaNYL DRIP Premix 2,000 MCG/100 ML BAG IV SCH ×6 (01:54→22:48)
--- NOTE | 2020-07-13 03:21 | XRay Report ---
CHEST 1 VIEW 07/13/2020 2:06 AM INDICATION / CLINICAL INFORMATION: Respiratory failure. COMPARISON: 07/10/2020 FINDINGS: SUPPORT DEVICES: Stable, satisfactory device positioning. HEART / MEDIASTINUM: Stable. LUNGS / PLEURA: Stable diffuse patchy bilateral opacities. No pneumothorax. ADDITIONAL FINDINGS: No significant additional findings. IMPRESSION: 1. No significant change. Signer Name: Vishal Harrison MD Signed: 07/13/2020 3:16 AM Workstation Name: [email or web address]
[2020-07-13] MEDS: HEPARIN 5,000 UNIT/1 ML VIAL SUB-Q SCH ×2 (06:15→13:18)
[2020-07-13 07:51] LABS: Calcium 7.9 mg/dL (8.4-10.2)
[2020-07-13] MEDS: SODIUM BICARBONATE 650 MG TAB PO SCH ×3 (08:06→20:22)
[2020-07-13 08:55] LABS: Hemoglobin 8.7 gm/dl (11.8-15.2); Mean Corpuscular HGB Conc 32 % (32-34); Mean Corpuscular Volume 89 fl (84-94); Platelet Count 364 K/mm3 (140-440); Red Blood Count 3.03 M/mm3 (3.65-5.03)
[2020-07-13] MEDS: ASCORBIC ACID 250 MG TAB PO SCH ×2 (09:54→21:26)
[2020-07-13] MEDS: CHOLECALCIFEROL (VIT D3) 1000 UNIT (25 mcg) TAB PO SCH (09:54)
[2020-07-13] MEDS: POLYETHYLENE GLYCOL 3350 17 GM POWDER PO SCH (09:54)
[2020-07-13] MEDS: DOCUSATE SODIUM 100 MG/10 ML ORAL LIQD FEEDTUBE SCH ×2 (09:55→21:26)
[2020-07-13] MEDS: QUEtiapine 200 MG TAB PO SCH ×2 (09:55→21:26)
[2020-07-13] MEDS: ZINC SULFATE 220 MG CAP PO SCH ×2 (09:55→21:27)
[2020-07-13] MEDS: AMIODARONE 200 MG TAB PO SCH ×2 (09:55→21:26)
[2020-07-13] MEDS: dexAMETHasone 4 MG/ML VIAL IV SCH (09:55)
[2020-07-13] MEDS: FAMOTIDINE 20 MG TAB PO SCH (09:56)
[2020-07-13] MEDS: VASOPRESSIN 20 UNIT in SODIUM CHLORIDE 0.9% 100 ML IV SCH ×2 (10:29→20:22)
--- NOTE | 2020-07-13 10:38 | Progress Note ---
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 Kidney function worsened and patient developed hyperkalemia, refractory acidosis and worsening azotemia, no signs of significant renal recovery, will cont HD on MWF schedule with vasopressor support prn to target increased UF 2-3L as tolerated (2) Severe sepsis with septic shock Current Visit: Yes Status: Acute Plan to address problem: Continue antibiotics per infectious disease testing consultant appropriately adjusted to the degree of renal function. Patient is on intermittent vasopressors to maintain MAP > 65mmHg . (3) Hyperkalemia Current Visit: Yes Status: Acute Plan to address problem: to be corrected with dialysis. cont 2g K renal diet (4) Metabolic acidosis Current Visit: Yes Status: Acute Plan to address problem: Acidosis corrected with dialysis. (5) Acute respiratory failure with hypoxia Current Visit: Yes Status: Acute Plan to address problem: Continue respiratory management by pulmonary (6) Pneumonia due to COVID-19 virus Current Visit: Yes Status: Acute Plan to address problem: IV Dexamethasone Supplemental oxygen/Respiratory support as needed Proning as tolerated Remdesevir contra-indicated due to Kidney failure Prophylactic anticoagulation Trend inflammatory markers to assess disease progression and prognosis Subjective Date of service: 07/13/20 Principal diagnosis: ARF; Septic Shock; COVID-19 PNA; Atrial fibrillation; Obesity Interval history: Patient was not examined today due to the COVID-19 status to limit exposure of the consulting help 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 I reviewed multidisciplinary notes and discussed with staff and physicians as needed. Patient is sedated on propofol and fentanyl, undergoing HD this AM on vasopressor support with vasopressin Objective - Exam Narrative Exam: exam deferred d/t PPE preservation - Vital Signs Vital signs: Vital Signs - 12hr 07/12/20 07/12/20 07/12/20 22:42 22:45 23:00 Temperature Pulse Rate 129 H 147 H 139 H Pulse Rate [ From Monitor] Respiratory 27 H 31 H 33 H Rate Blood Pressure 109/50 97/52 109/53 O2 Sat by Pulse 94 94 94 Oximetry 07/12/20 07/12/20 07/12/20 23:16 23:30 23:45 Temperature Pulse Rate 143 H 134 H 144 H Pulse Rate [ From Monitor] Respiratory 33 H 30 H 29 H Rate Blood Pressure 109/50 99/53 102/54 O2 Sat by Pulse 94 93 94 Oximetry 07/13/20 07/13/20 07/13/20 00:00 00:15 00:30 Temperature 99.2 F Pulse Rate 132 H 129 H 128 H Pulse Rate [ 132 H From Monitor] Respiratory 31 H 30 H 28 H Rate Blood Pressure 111/52 105/53 112/48 O2 Sat by Pulse 93 93 94 Oximetry 07/13/20 07/13/20 07/13/20 00:45 01:00 01:15 Temperature Pulse Rate 131 H 127 H 137 H Pulse Rate [ From Monitor] Respiratory 27 H 24 23 Rate Blood Pressure 107/53 104/48 95/50 O2 Sat by Pulse 94 94 94 Oximetry 07/13/20 07/13/20 07/13/20 01:30 01:45 02:00 Temperature Pulse Rate 128 H 133 H 117 H Pulse Rate [ From Monitor] Respiratory 22 22 21 Rate Blood Pressure 93/52 98/49 101/51 O2 Sat by Pulse 94 94 95 Oximetry 07/13/20 07/13/20 07/13/20 02:15 02:30 02:45 Temperature Pulse Rate 128 H 130 H 111 H Pulse Rate [ From Monitor] Respiratory 21 21 22 Rate Blood Pressure 90/49 96/49 101/66 O2 Sat by Pulse 94 93 93 Oximetry 07/13/20 07/13/20 07/13/20 03:00 03:15 03:30 Temperature Pulse Rate 120 H 133 H 119 H Pulse Rate [ From Monitor] Respiratory 19 23 25 H Rate Blood Pressure 107/61 111/62 107/63 O2 Sat by Pulse 92 92 93 Oximetry 07/13/20 07/13/20 07/13/20 03:43 03:45 04:00 Temperature 99.5 F Pulse Rate 114 H 125 H Pulse Rate [ 125 H From Monitor] Respiratory 24 23 Rate Blood Pressure 108/61 114/62 O2 Sat by Pulse 92 93 Oximetry 07/13/20 07/13/20 07/13/20 04:15 04:30 04:45 Temperature Pulse Rate 112 H 126 H 103 H Pulse Rate [ From Monitor] Respiratory 22 26 H 25 H Rate Blood Pressure 119/69 119/69 122/70 O2 Sat by Pulse 98 97 100 Oximetry 07/13/20 07/13/20 07/13/20 05:00 05:15 05:30 Temperature Pulse Rate 114 H 119 H 122 H Pulse Rate [ From Monitor] Respiratory 22 27 H 26 H Rate Blood Pressure 107/66 109/70 107/63 O2 Sat by Pulse 100 100 97 Oximetry 07/13/20 07/13/20 07/13/20 05:45 06:00 06:15 Temperature Pulse Rate 127 H 120 H 110 H Pulse Rate [ From Monitor] Respiratory 26 H 20 23 Rate Blood Pressure 107/66 107/65 111/62 O2 Sat by Pulse 96 95 94 Oximetry 07/13/20 07/13/20 07/13/20 06:30 06:45 07:00 Temperature Pulse Rate 115 H 103 H 131 H Pulse Rate [ From Monitor] Respiratory 23 22 23 Rate Blood Pressure 107/65 130/68 124/64 O2 Sat by Pulse 100 99 96 Oximetry 07/13/20 07/13/20 07/13/20 07:16 07:30 07:45 Temperature Pulse Rate 123 H 120 H 114 H Pulse Rate [ From Monitor] Respiratory 30 H 22 30 H Rate Blood Pressure 142/77 138/77 137/73 O2 Sat by Pulse 93 93 92 Oximetry 07/13/20 07/13/20 08:00 08:30 Temperature 100.6 F H Pulse Rate 144 H 128 H Pulse Rate [ From Monitor] Respiratory 22 Rate Blood Pressure 137/73 141/92 O2 Sat by Pulse 91 92 Oximetry - Lab 07/13/20 08:48 07/13/20 06:59 Most recent lab results ABG pH 7.347 (7.320-7.450) 07/13/20 03:11 ABG pCO2 56.4 mm Hg 07/05/20 04:30 ABG pO2 151.9 mm Hg (80.0-90.0) H 07/05/20 04:30 ABG HCO3 26.8 mmol/L (20.0-26.0) H 07/05/20 04:30 ABG O2 Saturation 98.7 % (95.0-99.0) 07/05/20 04:30 Calcium 7.9 mg/dL (8.4-10.2) L 07/13/20 06:59 Phosphorus 9.40 mg/dL (2.5-4.5) H 06/30/20 03:50 Magnesium 2.70 mg/dL (1.7-2.3) H 06/18/20 20:33 Urine Creatinine 192.4 mg/dL (0.1-20.0) H 06/18/20 15:00 Urine Sodium 28 mmol/L 06/18/20 15:00 Medications & Allergies - Medications Allergies/Adverse Reactions: Allergies No Known Allergies Allergy (Unverified 06/17/20 14:24) Home Medications: Home Medications Medication Instructions Recorded Confirmed Last Taken Type Losartan/Hydrochlorothiazide 1 each PO QDAY 06/19/20 06/19/20 Unknown History [Losartan-Hctz 100-25 mg Tab] amLODIPine [Norvasc] 5 mg PO DAILY 06/19/20 06/19/20 Unknown History Active Medications: Generic Name Dose Route Start Last Admin Trade Name Freq PRN Reason Stop Dose Admin Acetaminophen 650 mg 06/17/20 14:17 07/03/20 09:16 Acetaminophen 325 Mg Tab PO 650 mg Q4H PRN Administration Pain MILD(1-3)/Fever >100.5/ROBERTS Amiodarone HCl 200 mg 07/08/20 12:30 07/13/20 09:55 Amiodarone 200 Mg Tab PO 200 mg BID CONNOR Administration Lipase/Protease/Amylase 1 each 06/19/20 12:15 Lipase 10,500/Protease 25,000/Amylase 43,750 (Units) Dr Kulkarni FEEDTUBE PRN PRN For Clogged Feeding Tube Ascorbic Acid 250 mg 06/17/20 22:00 07/13/20 09:54 Ascorbic Acid 250 Mg Tab PO 250 mg BID CONNOR Administration Cholecalciferol 1,000 unit 06/18/20 10:00 07/13/20 09:54 Cholecalciferol (Vit D3) 1000 Unit (25 Mcg) Tab PO 1,000 unit DAILY CONNOR Administration Dexamethasone 4 mg 07/12/20 10:00 07/13/20 09:55 Dexamethasone 4 Mg/Ml Vial IV 07/13/20 13:59 4 mg DAILY CONNOR Administration Dexamethasone 2 mg 07/14/20 10:00 Dexamethasone 4 Mg/Ml Vial IV 07/15/20 10:01 DAILY CONNOR Docusate Sodium 100 mg 06/23/20 15:00 07/13/20 09:55 Docusate Sodium 100 Mg/10 Ml Oral Liqd FEEDTUBE 100 mg BID CONNOR Administration Famotidine 20 mg 07/13/20 10:00 07/13/20 09:56 Famotidine 20 Mg Tab PO 20 mg DAILY CONNOR Administration Fentanyl 50 mcg 06/18/20 01:02 07/09/20 00:20 Fentanyl 100 Mcg/2 Ml Inj IV 50 mcg Q10MIN PRN Administration ANALGESIA Heparin Sodium (Porcine) 5,000 unit 06/22/20 12:53 06/30/20 13:36 Heparin 10,000 Unit/1 Ml Vial IV 5,000 unit PAM PRN Administration hemodialysis Heparin Sodium (Porcine) 5,000 unit 07/03/20 22:00 07/13/20 06:15 Heparin 5,000 Unit/1 Ml Vial SUB-Q 5,000 unit Q8HR CONNOR Administration Hydrophilic Ointment 1 applic 06/17/20 22:52 07/12/20 20:22 Lip Therapy Vaseline TP 1 applic Q2HR PRN Administration Dry Lips Propofol 1,000 mg in 100 mls @ 3.402 mls/hr 06/18/20 01:00 07/13/20 02:46 Diprivan 10 Mg/Ml IV 10 mcg/kg/min TITR CONNOR 6.804 mls/hr Administration Protocol 5 MCG/KG/MIN Fentanyl Citrate 2,000 mcg in 100 mls @ 8 mls/hr 06/18/20 02:00 07/13/20 10:27 Fentanyl Drip Premix IV 3 mcg/kg/hr TITR CONNOR 17.01 mls/hr Administration Protocol 1 MCG/KG/HR Sodium Chloride 500 mls @ 1 mls/hr 06/18/20 09:38 06/19/20 21:37 Nacl 0.9% 500 Ml IV 0 mls/hr DIRECT PRN Infusion ARTERIAL LINE FLUSH Norepinephrine 4 mg in 250 mls @ 7.5 mls/hr 07/08/20 02:06 07/12/20 09:40 Levophed Drip 4 Mg/Ns 250 Ml IV 0 mcg/min TITR CONNOR 0 mls/hr Titration Protocol 2 MCG/MIN Vasopressin 20 unit/ Sodium 101 mls @ 9.09 mls/hr 07/11/20 11:00 07/13/20 10:29 Chloride IV 0.03 units/min TITR CONNOR 9.09 mls/hr Administration Protocol 0.03 UNITS/MIN Sodium Chloride 100 mls @ 999 mls/hr 07/12/20 10:00 Nacl 0.9% IV PAM PRN Hypotension Insulin Human Regular 0 units 06/18/20 12:00 07/13/20 06:04 Insulin Regular, Human 100 Units/1 Ml SUB-Q Not Given Q6HR [facility] Protocol Multi-Ingred Cream/Lotion/Oil/Oint 1 applic 06/17/20 22:52 07/12/20 20:22 Mineral Oil/Petrolatum, White Ophth Oint 3.5 Gm OU 1 applic Q4HR PRN Administration Dry Eye(s) Ondansetron HCl 4 mg 06/17/20 14:17 Ondansetron 4 Mg/2 Ml Inj IV Q8H PRN Nausea And Vomiting Polyethylene Glycol 17 gm 06/23/20 15:00 07/13/20 09:54 Polyethylene Glycol 3350 17 Gm Powder PO 17 gm QDAY CONNOR Administration Quetiapine Fumarate 200 mg 06/28/20 13:00 07/13/20 09:55 Quetiapine 200 Mg Tab PO 200 mg BID CONNOR Administration Simple Syrup 15 ml 06/19/20 12:15 Simple Syrup 15 Ml FEEDTUBE PRN PRN Hypoglycemia Simple Syrup 30 ml 06/19/20 12:15 Simple Syrup 15 Ml FEEDTUBE PRN PRN Hypoglycemia Sodium Bicarbonate 325 mg 06/19/20 12:15 07/11/20 20:00 Sodium Bicarbonate 325 Mg Tab FEEDTUBE 325 mg PRN PRN Administration For Clogged Feeding Tube Sodium Bicarbonate 650 mg 07/04/20 10:00 07/13/20 08:06 Sodium Bicarbonate 650 Mg Tab PO 650 mg TID CONNOR Administration Sodium Chloride 10 ml 06/17/20 22:00 07/13/20 09:55 Sodium Chloride 0.9% 10 Ml Flush Syringe IV 10 ml BID CONNOR Administration Sodium Chloride 10 ml 06/17/20 14:17 Sodium Chloride 0.9% 10 Ml Flush Syringe IV PRN PRN LINE FLUSH Sodium Polystyrene Sulfonate 15 gm 07/03/20 11:19 07/05/20 10:36 Sodium Polystyrene 15 Gm/60 Ml Oral Liqd PO 15 gm Q6HR PRN Administration Hyperkalemia Zinc Sulfate 220 mg 06/17/20 22:00 07/13/20 09:55 Zinc Sulfate 220 Mg Cap PO 220 mg BID CONNOR Administration
[2020-07-13] MEDS: NORepinephrine/NS 4 MG-250 ML 4 MG/250 ML BAG IV SCH (11:30)
--- NOTE | 2020-07-13 11:38 | Progress Note ---
Assessment and Plan tele reviewed - currently in AFib/AFlutter HR 120s. pt continues to intermittently require vasopressors. Cont amio. The patient has been seen in conjunction with Dr. Chavis who agrees with the assessment and plan of care. - Patient Problems (1) Acute respiratory failure with hypoxia Current Visit: Yes Status: Acute (2) Pneumonia due to COVID-19 virus Current Visit: Yes Status: Acute (3) Sepsis Current Visit: Yes Status: Acute Qualifiers: Severe sepsis acute organ dysfunction type: acute respiratory failure Severe sepsis shock status: with septic shock (4) Atrial fibrillation with rapid ventricular response Current Visit: Yes Status: Acute (5) Acute renal failure Current Visit: Yes Status: Acute (6) Elevated LFTs Current Visit: Yes Status: Acute (7) Anemia Current Visit: Yes Status: Acute Subjective Date of service: 07/13/20 Principal diagnosis: ARF; Septic Shock; COVID-19 PNA; Atrial fibrillation; Obesity Interval history: pt remains intubated, sedated. intermittently requiring vasopressor support. tele reviewed - currently in AFib/AFlutter HR 120s. Objective Last Vital Signs Temp 100.6 F H 07/13/20 10:00 Pulse 130 H 07/13/20 11:30 Resp 25 H 07/13/20 11:00 BP 101/48 07/13/20 11:30 Pulse Ox 96 07/13/20 11:00 - Physical Examination General: Other (intubated, lethargic) Neck: Positive: neck supple Cardiac: Positive: irregularly irregular, S1/S2, Tachycardia Lungs: Positive: Decreased Breath Sounds Neuro: Positive: Other (intubated, lethargic) Abdomen: Positive: Soft Skin: Negative: Rash, Wound Extremities: Present: upper extr. pulses, lower extr. pulses, +1 Edema - Labs and Meds Cardiac Enzymes 07/13/20 Range/Units 06:59 AST 61 H (5-40) units/L CBC 07/13/20 Range/Units 08:48 WBC 27.5 H (4.5-11.0) K/mm3 RBC 3.03 L (3.65-5.03) M/mm3 Hgb 8.7 L (11.8-15.2) gm/dl Hct 27.0 L (35.5-45.6) % Plt Count 364 (140-440) K/mm3 Comprehensive Metabolic Panel 07/13/20 Range/Units 06:59 Sodium 133 L (137-145) mmol/L Potassium 5.7 H (3.6-5.0) mmol/L Chloride 96.3 L (98-107) mmol/L Carbon Dioxide 20 L D (22-30) mmol/L BUN 102 H (9-20) mg/dL Creatinine 4.4 H (0.8-1.3) mg/dL Glucose 101 H (75-100) mg/dL Calcium 7.9 L (8.4-10.2) mg/dL AST 61 H (5-40) units/L ALT 85 H (7-56) units/L Alkaline Phosphatase 144 H (35-129) units/L Total Protein 5.4 L (6.3-8.2) g/dL Albumin 2.0 L (3.9-5) g/dL - Imaging and Cardiology EKG: report reviewed, image reviewed Echo: report reviewed (TDS, EF 55-60%. ) - EKG Sinus rhythms and dysrhythmias: sinus tachycardia - Allied health notes Allied health notes reviewed: nursing
--- NOTE | 2020-07-13 14:14 | Progress Note ---
Assessment and Plan Acute hypoxemic respiratory failure due to COVID-19 Severe COVID infection Severe Sepsis with shock Bilateral pneumonia Acute kidney injury (GIRISH) with acute tubular necrosis (ATN) Elevated liver enzymes Obesity (Discussed care with his family extensively over the phone and answered their questions; explained the gravity of his illness and the likely need for a tracheostomy if he shows improvement) - FiO2 dropped to 90% and will wean further as tolerated - wean vasopressors for target MAP > 65 mmHg - RN to flush rectal tube - repeat CBC in am - continue to follow clinically off AB's - nephrology input sincerely appreciated (3kg UF during HD/UF today) - continue care as below otherwise; - therapeutic anticoagulation remains on hold - continue HD/UF per nephrology prescription for toxin and volume clearance - keep peep at 14 - continue daily SAT's & SBT's as tolerated - continue tube feeds and advance to goal rate as tolerated - continue HD/UF per nephrology team for toxin and volume clearance - continue bowel regimen - rate control per cardiology team for afib RVR - Continue to wean supplemental oxygen for O2 sats >92% - Monitor blood pressure closely while optimizing sedation,wean vasopressor support for MAP > 65 mmHg - Critical care prone positioning - VAP bundle addressed, aspiration precautions HOB >40 - continue lung protective strategies, permissive hypercapnic acceptable. - continue bronchodilators with pulmonary hygiene per RT - wean per pulmonary driven protocols otherwise - accuchecks with glycemic control per SSI (While critically ill target blood glucose of 140-180 mg/dL; avoid hypoglycemia) - sedation prn for target RASS -1 to -2 - continue enteral nutritional support at goal rate as tolerated - s/p antibiotics per ID recommendations - Monitor liver function test ,avoid hepatotoxic agents - azotemia per nephrology rec's - Avoid nephrotoxins, renally dose all medications, conservative fluid management - continue to avoid benzodiazepines, reduce the possibility of delirium, - prn analgesia per CPOT score - Maintenance of sleep-wake cycle, avoid delirium - Stress ulcer prophylaxis, Famotidine - PT/OT/ROM exercises - Mobility protocols for pressure ulcer prevention - CXR, ABG in am - CBC, CMP in am - Supportive transfusions to keep HgB >7g/dL - Monitor hemodynamics closely - continue other care per attending / other consultants COVID SPECIFIC INTERVENTIONS - s/p steroids: Dexamethasone - completed Remdesivir - monitor inflammatory markers prn - ferritin, D-dimer, CRP, LDH per facility protocol - continue anticoagulation per System Protocol based on d-dimer (on hold due to bleeding) - continue contact and airborne isolation CONDITION: CRITICAL PROGNOSIS: GUARDED CODE STATUS: FULL CODE The high probability of a clinically significant, sudden or life-threatening deterioration of the [respiratory, cardiovascular, hematologic & neurologic] system(s) required my full and direct attention, intervention and personal management. The aggregate critical care time was [36] minutes without overlap. Time includes spent on; [x] Data Review and interpretation [x] Patient assessment and monitoring of vital signs [x] Documentation [x] Medication orders and management He was evaluated in the context of the global COVID-19 pandemic, which necessitated consideration that the patient might be at risk for infection with the virus that causes COVID-19. Institutional protocols and algorithms that pertain to the evaluation of patients at risk for COVID-19 are in a state of rapid change based on information released by regulatory bodies including the CDC and federal and state organizations. These policies and algorithms were f ollowed during the patient's care in the ICU Please note that these policies, procedures and recommendations changed on a rapid basis. Subjective Date of service: 07/13/20 Principal diagnosis: ARF; Septic Shock; COVID-19 PNA; Atrial fibrillation; Obesity Interval history: Patient is seen today for: Ac hypoxemic respiratory failure; COVID-19; Severe Sepsis with shock; Zackery. pneumonia; GIRISH; Elevated liver enzymes; Obesity Seen and examined at bedside; 24hour events reviewed; nursing and respiratory care staff consulted; no adverse overnight events reported to me; resting in bed; remains on MVS; s/p- HD/UF; FiO2 up to 100% due to desaturations during dialysis but room to wean; RN reports some blood streaks in stool; no emesis or overt aspiration; afebrile Objective Vital Signs - 12hr 07/13/20 07/13/20 07/13/20 02:15 02:30 02:45 Temperature Pulse Rate 128 H 130 H 111 H Pulse Rate [ From Monitor] Respiratory 22 Rate Blood Pressure 90/49 96/49 101/66 O2 Sat by Pulse 94 93 93 Oximetry O2 Sat by Pulse Oximetry [ Anterior Bilateral Throughout] 07/13/20 07/13/20 07/13/20 03:00 03:15 03:30 Temperature Pulse Rate 120 H 133 H 119 H Pulse Rate [ From Monitor] Respiratory 19 23 25 H Rate Blood Pressure 107/61 111/62 107/63 O2 Sat by Pulse 92 92 93 Oximetry O2 Sat by Pulse Oximetry [ Anterior Bilateral Throughout] 07/13/20 07/13/20 07/13/20 03:43 03:45 04:00 Temperature 99.5 F Pulse Rate 114 H 125 H Pulse Rate [ 125 H From Monitor] Respiratory 24 23 Rate Blood Pressure 108/61 114/62 O2 Sat by Pulse 92 93 Oximetry O2 Sat by Pulse Oximetry [ Anterior Bilateral Throughout] 07/13/20 07/13/20 07/13/20 04:15 04:30 04:45 Temperature Pulse Rate 112 H 126 H 103 H Pulse Rate [ From Monitor] Respiratory 22 26 H 25 H Rate Blood Pressure 119/69 119/69 122/70 O2 Sat by Pulse 98 97 100 Oximetry O2 Sat by Pulse Oximetry [ Anterior Bilateral Throughout] 07/13/20 07/13/20 07/13/20 05:00 05:15 05:30 Temperature Pulse Rate 114 H 119 H 122 H Pulse Rate [ From Monitor] Respiratory 22 27 H 26 H Rate Blood Pressure 107/66 109/70 107/63 O2 Sat by Pulse 100 100 97 Oximetry O2 Sat by Pulse Oximetry [ Anterior Bilateral Throughout] 07/13/20 07/13/20 07/13/20 05:45 06:00 06:15 Temperature Pulse Rate 127 H 120 H 110 H Pulse Rate [ From Monitor] Respiratory 26 H 20 23 Rate Blood Pressure 107/66 107/65 111/62 O2 Sat by Pulse 96 95 94 Oximetry O2 Sat by Pulse Oximetry [ Anterior Bilateral Throughout] 07/13/20 07/13/20 07/13/20 06:30 06:45 07:00 Temperature Pulse Rate 115 H 103 H 131 H Pulse Rate [ From Monitor] Respiratory 23 22 23 Rate Blood Pressure 107/65 130/68 124/64 O2 Sat by Pulse 100 99 96 Oximetry O2 Sat by Pulse Oximetry [ Anterior Bilateral Throughout] 07/13/20 07/13/20 07/13/20 07:16 07:30 07:45 Temperature Pulse Rate 123 H 120 H 114 H Pulse Rate [ From Monitor] Respiratory 30 H 22 30 H Rate Blood Pressure 142/77 138/77 137/73 O2 Sat by Pulse 93 93 92 Oximetry O2 Sat by Pulse Oximetry [ Anterior Bilateral Throughout] 07/13/20 07/13/20 07/13/20 08:00 08:16 08:30 Temperature 100.6 F H Pulse Rate 144 H 126 H 121 H Pulse Rate [ 140 H From Monitor] Respiratory 24 27 H 28 H Rate Blood Pressure 137/73 127/79 127/79 O2 Sat by Pulse 92 92 92 Oximetry O2 Sat by Pulse Oximetry [ Anterior Bilateral Throughout] 07/13/20 07/13/20 07/13/20 08:46 09:00 09:15 Temperature Pulse Rate 132 H 126 H 118 H Pulse Rate [ From Monitor] Respiratory 34 H 35 H 30 H Rate Blood Pressure 162/69 139/68 136/67 O2 Sat by Pulse 91 92 94 Oximetry O2 Sat by Pulse Oximetry [ Anterior Bilateral Throughout] 07/13/20 07/13/20 07/13/20 09:30 09:45 10:00 Temperature 100.6 F H Pulse Rate 121 H 123 H 133 H Pulse Rate [ From Monitor] Respiratory 24 24 31 H Rate Blood Pressure 120/73 136/68 136/68 O2 Sat by Pulse 94 95 93 Oximetry O2 Sat by Pulse 87 Oximetry [ Anterior Bilateral Throughout] 07/13/20 07/13/20 07/13/20 10:10 10:15 10:30 Temperature Pulse Rate 127 H 126 H 126 H Pulse Rate [ From Monitor] Respiratory 33 H 30 H Rate Blood Pressure 126/65 126/65 126/64 O2 Sat by Pulse 91 90 Oximetry O2 Sat by Pulse Oximetry [ Anterior Bilateral Throughout] 07/13/20 07/13/20 07/13/20 10:45 10:46 11:00 Temperature Pulse Rate 135 H 128 H 149 H Pulse Rate [ From Monitor] Respiratory 27 H 25 H Rate Blood Pressure 133/62 126/64 107/50 O2 Sat by Pulse 97 96 Oximetry O2 Sat by Pulse Oximetry [ Anterior Bilateral Throughout] 07/13/20 07/13/20 07/13/20 11:15 11:16 11:30 Temperature Pulse Rate 127 H 143 H 117 H Pulse Rate [ From Monitor] Respiratory 25 H 26 H Rate Blood Pressure 94/43 94/43 101/48 O2 Sat by Pulse 95 96 Oximetry O2 Sat by Pulse Oximetry [ Anterior Bilateral Throughout] 07/13/20 07/13/20 07/13/20 11:45 11:46 12:00 Temperature 99.5 F Pulse Rate 116 H 133 H 129 H Pulse Rate [ 128 H From Monitor] Respiratory 25 H 25 H Rate Blood Pressure 94/49 94/49 95/47 O2 Sat by Pulse 96 96 Oximetry O2 Sat by Pulse Oximetry [ Anterior Bilateral Throughout] 07/13/20 07/13/20 07/13/20 12:15 12:25 12:30 Temperature Pulse Rate 135 H 129 H 126 H Pulse Rate [ From Monitor] Respiratory 24 22 Rate Blood Pressure 105/48 105/48 97/44 O2 Sat by Pulse 96 96 97 Oximetry O2 Sat by Pulse Oximetry [ Anterior Bilateral Throughout] 07/13/20 07/13/20 07/13/20 12:45 13:00 13:15 Temperature Pulse Rate 125 H 122 H 128 H Pulse Rate [ From Monitor] Respiratory 21 21 Rate Blood Pressure 92/51 98/55 105/52 O2 Sat by Pulse 97 97 Oximetry O2 Sat by Pulse Oximetry [ Anterior Bilateral Throughout] 07/13/20 07/13/20 07/13/20 13:30 13:40 13:44 Temperature 99.5 F Pulse Rate 130 H 116 H 123 H Pulse Rate [ From Monitor] Respiratory 17 Rate Blood Pressure 108/50 114/56 114/56 O2 Sat by Pulse Oximetry O2 Sat by Pulse 98 Oximetry [ Anterior Bilateral Throughout] Constitutional: appears uncomfortable, other (morbidly obese, atraumatic, normocephalic, mild resp distress, orally intubated) Eyes: non-icteric ENT: oropharynx moist, other (ETT 24 cm TROY + blood crusted lips) Neck: supple, no lymphadenopathy, other (Large , short neck) Effort: mildly labored Ascultation: Bilateral: clear, diminished breath sounds Percussion: Bilateral: not dull Cardiovascular: irregular rhythm, other (S1,S2) Gastrointestinal: normoactive bowel sounds, non-distended (protuberant), other (OG Tube) Integumentary: rash, other (Femoral CVC, Newell catheter) Extremities: pink and warm, pulses normal, no ischemia or petechiae, edema (trace to 1+) Neurologic: non-focal exam (grossly), pupils equal and round, other (unable to assess, sedated) Psychiatric: other (unable to assess, sedated) CBC and BMP: 07/13/20 08:48 07/13/20 06:59 ABG, PT/INR, D-dimer: ABG ABG pH 7.347 (7.320-7.450) 07/13/20 03:11 POC ABG pCO2 49.0 mmHg (32.0-48.0) H 07/13/20 03:11 ABG pCO2 56.4 mm Hg 07/05/20 04:30 POC ABG pO2 69.6 mmHg (83-108) L 07/13/20 03:11 ABG pO2 151.9 mm Hg (80.0-90.0) H 07/05/20 04:30 POC ABG HCO3 26.3 07/13/20 03:11 ABG O2 Saturation 98.7 % (95.0-99.0) 07/05/20 04:30 PT/INR, D-dimer PT 17.4 Sec. (12.2-14.9) H 06/26/20 05:47 INR 1.44 (0.87-1.13) H 06/26/20 05:47 D-Dimer 6608.00 ng/mlDDU (0-234) H 07/03/20 14:50 Abnormal lab findings: Abnormal Labs 06/17/20 06/17/20 06/17/20 12:33 12:33 12:33 WBC 19.5 H RBC 5.18 H Hgb 15.5 H Hct MCHC RDW Lymph % (Auto) 3.8 L [place] % (Auto) Lymph # (Auto) 0.7 L [place] # (Auto) Eos # (Auto) Seg Neutrophils % Seg Neuts % (Manual) 99.0 H Lymphocytes % (Manual) 1.0 L Monocytes % (Manual) Nucleated RBC % Seg Neutrophils # 18.2 H Seg Neutrophils # Man 19.3 H Lymphocytes # (Manual) 0.2 L Monocytes # (Manual) Eosinophils # (Manual) PT 16.5 H INR 1.33 H APTT D-Dimer 1025.04 H Heparin Anti-Xa Level ABG pH POC ABG pCO2 POC ABG pO2 ABG pO2 ABG HCO3 ABG Hemoglobin ABG Oxyhemoglobin ABG Sodium ABG Potassium ABG Chloride ABG Glucose Carboxyhemoglobin Sodium 130 L Potassium 3.4 L Chloride 95.0 L Carbon Dioxide BUN 21 H Creatinine Glucose 137 H POC Glucose Lactic Acid Calcium 7.9 L Phosphorus Magnesium Ferritin Direct Bilirubin AST 84 H ALT 67 H Alkaline Phosphatase Lactate Dehydrogenase 437 H Total Creatine Kinase 310 H C-Reactive Protein 27.90 H Total Protein Albumin 2.9 L Triglycerides Arterial Blood Glucose Arterial Blood Ionized Calcium Urine Creatinine Urine Chloride Vancomycin Trough Coronavirus (PCR) Crossmatch 06/17/20 06/17/20 06/17/20 12:33 12:33 14:48 WBC RBC Hgb Hct MCHC RDW Lymph % (Auto) [place] % (Auto) Lymph # (Auto) [place] # (Auto) Eos # (Auto) Seg Neutrophils % Seg Neuts % (Manual) Lymphocytes % (Manual) Monocytes % (Manual) Nucleated RBC % Seg Neutrophils # Seg Neutrophils # Man Lymphocytes # (Manual) Monocytes # (Manual) Eosinophils # (Manual) PT INR APTT D-Dimer Heparin Anti-Xa Level ABG pH POC ABG pCO2 POC ABG pO2 ABG pO2 ABG HCO3 ABG Hemoglobin ABG Oxyhemoglobin ABG Sodium ABG Potassium ABG Chloride ABG Glucose Carboxyhemoglobin Sodium Potassium Chloride Carbon Dioxide BUN Creatinine Glucose POC Glucose Lactic Acid 2.50 H* 2.20 H* Calcium Phosphorus Magnesium Ferritin 2297.0 H Direct Bilirubin AST ALT Alkaline Phosphatase Lactate Dehydrogenase Total Creatine Kinase C-Reactive Protein Total Protein Albumin Triglycerides Arterial Blood Glucose Arterial Blood Ionized Calcium Urine Creatinine Urine Chloride Vancomycin Trough Coronavirus (PCR) Crossmatch 06/17/20 06/17/20 06/17/20 14:48 14:48 14:48 WBC RBC Hgb Hct MCHC RDW Lymph % (Auto) [place] % (Auto) Lymph # (Auto) [place] # (Auto) Eos # (Auto) Seg Neutrophils % Seg Neuts % (Manual) Lymphocytes % (Manual) Monocytes % (Manual) Nucleated RBC % Seg Neutrophils # Seg Neutrophils # Man Lymphocytes # (Manual) Monocytes # (Manual) Eosinophils # (Manual) PT INR APTT D-Dimer 939.89 H Heparin Anti-Xa Level ABG pH POC ABG pCO2 POC ABG pO2 ABG pO2 ABG HCO3 ABG Hemoglobin ABG Oxyhemoglobin ABG Sodium ABG Potassium ABG Chloride ABG Glucose Carboxyhemoglobin Sodium Potassium Chloride Carbon Dioxide BUN Creatinine Glucose 141 H POC Glucose Lactic Acid Calcium Phosphorus Magnesium Ferritin > 2000.0 H Direct Bilirubin AST ALT Alkaline Phosphatase Lactate Dehydrogenase 503 H Total Creatine Kinase C-Reactive Protein 24.70 H Total Protein Albumin Triglycerides Arterial Blood Glucose Arterial Blood Ionized Calcium Urine Creatinine Urine Chloride Vancomycin Trough Coronavirus (PCR) Crossmatch 06/17/20 06/17/20 06/17/20 16:54 19:39 23:43 WBC RBC Hgb Hct MCHC RDW Lymph % (Auto) [place] % (Auto) Lymph # (Auto) [place] # (Auto) Eos # (Auto) Seg Neutrophils % Seg Neuts % (Manual) Lymphocytes % (Manual) Monocytes % (Manual) Nucleated RBC % Seg Neutrophils # Seg Neutrophils # Man Lymphocytes # (Manual) Monocytes # (Manual) Eosinophils # (Manual) PT INR APTT D-Dimer Heparin Anti-Xa Level ABG pH 7.571 H POC ABG pCO2 24.3 L POC ABG pO2 41.6 L ABG pO2 ABG HCO3 ABG Hemoglobin ABG Oxyhemoglobin 84.0 L ABG Sodium 131.0 L ABG Potassium ABG Chloride ABG Glucose 163 H Carboxyhemoglobin Sodium Potassium Chloride Carbon Dioxide BUN Creatinine Glucose POC Glucose 185 H Lactic Acid 2.10 H* Calcium Phosphorus Magnesium Ferritin Direct Bilirubin AST ALT Alkaline Phosphatase Lactate Dehydrogenase Total Creatine Kinase C-Reactive Protein Total Protein Albumin Triglycerides Arterial Blood Glucose 163 H Arterial Blood Ionized Calcium 4.4 L Urine Creatinine Urine Chloride Vancomycin Trough Coronavirus (PCR) Crossmatch 06/18/20 06/18/20 06/18/20 00:17 00:23 03:55 WBC RBC Hgb Hct MCHC RDW Lymph % (Auto) [place] % (Auto) Lymph # (Auto) [place] # (Auto) Eos # (Auto) Seg Neutrophils % Seg Neuts % (Manual) Lymphocytes % (Manual) Monocytes % (Manual) Nucleated RBC % Seg Neutrophils # Seg Neutrophils # Man Lymphocytes # (Manual) Monocytes # (Manual) Eosinophils # (Manual) PT INR APTT D-Dimer Heparin Anti-Xa Level ABG pH POC ABG pCO2 POC ABG pO2 56.5 L 48.3 L ABG pO2 ABG HCO3 ABG Hemoglobin ABG Oxyhemoglobin 86.3 L 81.7 L ABG Sodium 132.9 L 131.0 L ABG Potassium ABG Chloride ABG Glucose 189 H 161 H Carboxyhemoglobin 0.4 L Sodium Potassium Chloride Carbon Dioxide BUN Creatinine Glucose POC Glucose Lactic Acid 3.80 H* Calcium Phosphorus Magnesium Ferritin Direct Bilirubin AST ALT Alkaline Phosphatase Lactate Dehydrogenase Total Creatine Kinase C-Reactive Protein Total Protein Albumin Triglycerides Arterial Blood Glucose 189 H 161 H Arterial Blood Ionized Calcium 4.3 L 4.2 L Urine Creatinine Urine Chloride Vancomycin Trough Coronavirus (PCR) Crossmatch 06/18/20 06/18/20 06/18/20 05:39 05:39 05:39 WBC 26.2 H RBC Hgb Hct MCHC RDW Lymph % (Auto) [place] % (Auto) Lymph # (Auto) [place] # (Auto) Eos # (Auto) Seg Neutrophils % Seg Neuts % (Manual) 90.0 H Lymphocytes % (Manual) 5.0 L Monocytes % (Manual) Nucleated RBC % Seg Neutrophils # Seg Neutrophils # Man 23.6 H Lymphocytes # (Manual) Monocytes # (Manual) 1.3 H Eosinophils # (Manual) PT INR APTT D-Dimer Heparin Anti-Xa Level ABG pH POC ABG pCO2 POC ABG pO2 ABG pO2 ABG HCO3 ABG Hemoglobin ABG Oxyhemoglobin ABG Sodium ABG Potassium ABG Chloride ABG Glucose Carboxyhemoglobin Sodium 135 L Potassium Chloride 97.5 L Carbon Dioxide 21 L BUN 39 H Creatinine 1.7 H D Glucose 168 H POC Glucose Lactic Acid 3.40 H* Calcium 7.2 L Phosphorus Magnesium Ferritin Direct Bilirubin AST ALT Alkaline Phosphatase Lactate Dehydrogenase Total Creatine Kinase C-Reactive Protein Total Protein Albumin Triglycerides Arterial Blood Glucose Arterial Blood Ionized Calcium Urine Creatinine Urine Chloride Vancomycin Trough Coronavirus (PCR) Crossmatch 06/18/20 06/18/20 06/18/20 07:24 09:00 10:10 WBC RBC Hgb Hct MCHC RDW Lymph % (Auto) [place] % (Auto) Lymph # (Auto) [place] # (Auto) Eos # (Auto) Seg Neutrophils % Seg Neuts % (Manual) Lymphocytes % (Manual) Monocytes % (Manual) Nucleated RBC % Seg Neutrophils # Seg Neutrophils # Man Lymphocytes # (Manual) Monocytes # (Manual) Eosinophils # (Manual) PT INR APTT D-Dimer Heparin Anti-Xa Level ABG pH POC ABG pCO2 POC ABG pO2 ABG pO2 ABG HCO3 ABG Hemoglobin ABG Oxyhemoglobin ABG Sodium ABG Potassium ABG Chloride ABG Glucose Carboxyhemoglobin Sodium Potassium Chloride Carbon Dioxide BUN Creatinine Glucose POC Glucose Lactic Acid 2.90 H* 3.20 H* Calcium Phosphorus Magnesium Ferritin Direct Bilirubin AST ALT Alkaline Phosphatase Lactate Dehydrogenase Total Creatine Kinase C-Reactive Protein Total Protein Albumin Triglycerides Arterial Blood Glucose Arterial Blood Ionized Calcium Urine Creatinine Urine Chloride Vancomycin Trough Coronavirus (PCR) Positive A Crossmatch 06/18/20 06/18/20 06/18/20 11:58 14:43 15:00 WBC RBC Hgb Hct MCHC RDW Lymph % (Auto) [place] % (Auto) Lymph # (Auto) [place] # (Auto) Eos # (Auto) Seg Neutrophils % Seg Neuts % (Manual) Lymphocytes % (Manual) Monocytes % (Manual) Nucleated RBC % Seg Neutrophils # Seg Neutrophils # Man Lymphocytes # (Manual) Monocytes # (Manual) Eosinophils # (Manual) PT INR APTT D-Dimer Heparin Anti-Xa Level ABG pH 7.303 L POC ABG pCO2 POC ABG pO2 82.3 L ABG pO2 ABG HCO3 ABG Hemoglobin ABG Oxyhemoglobin ABG Sodium 135.3 L ABG Potassium ABG Chloride ABG Glucose 215 H Carboxyhemoglobin 0.3 L Sodium Potassium Chloride Carbon Dioxide BUN Creatinine Glucose POC Glucose 209 H Lactic Acid Calcium Phosphorus Magnesium Ferritin Direct Bilirubin AST ALT Alkaline Phosphatase Lactate Dehydrogenase Total Creatine Kinase C-Reactive Protein Total Protein Albumin Triglycerides Arterial Blood Glucose 215 H Arterial Blood Ionized Calcium 4.2 L Urine Creatinine 192.4 H Urine Chloride 31.1 L Vancomycin Trough Coronavirus (PCR) Crossmatch 06/18/20 06/18/20 06/18/20 17:16 19:44 20:33 WBC RBC Hgb Hct MCHC RDW Lymph % (Auto) [place] % (Auto) Lymph # (Auto) [place] # (Auto) Eos # (Auto) Seg Neutrophils % Seg Neuts % (Manual) Lymphocytes % (Manual) Monocytes % (Manual) Nucleated RBC % Seg Neutrophils # Seg Neutrophils # Man Lymphocytes # (Manual) Monocytes # (Manual) Eosinophils # (Manual) PT INR APTT D-Dimer Heparin Anti-Xa Level ABG pH POC ABG pCO2 POC ABG pO2 ABG pO2 ABG HCO3 ABG Hemoglobin ABG Oxyhemoglobin ABG Sodium ABG Potassium ABG Chloride ABG Glucose Carboxyhemoglobin Sodium Potassium Chloride Carbon Dioxide BUN Creatinine Glucose POC Glucose 182 H Lactic Acid 3.00 H* Calcium Phosphorus Magnesium 2.70 H Ferritin Direct Bilirubin AST ALT Alkaline Phosphatase Lactate Dehydrogenase Total Creatine Kinase C-Reactive Protein Total Protein Albumin Triglycerides Arterial Blood Glucose Arterial Blood Ionized Calcium Urine Creatinine Urine Chloride Vancomycin Trough Coronavirus (PCR) Crossmatch 06/18/20 06/19/20 06/19/20 23:43 04:00 04:00 WBC 31.6 H RBC Hgb Hct MCHC RDW Lymph % (Auto) [place] % (Auto) Lymph # (Auto) [place] # (Auto) Eos # (Auto) Seg Neutrophils % Seg Neuts % (Manual) 98.0 H Lymphocytes % (Manual) 0.5 L Monocytes % (Manual) Nucleated RBC % Seg Neutrophils # Seg Neutrophils # Man 31.0 H Lymphocytes # (Manual) 0.2 L Monocytes # (Manual) Eosinophils # (Manual) PT INR APTT D-Dimer Heparin Anti-Xa Level ABG pH POC ABG pCO2 POC ABG pO2 ABG pO2 ABG HCO3 ABG Hemoglobin ABG Oxyhemoglobin ABG Sodium ABG Potassium ABG Chloride ABG Glucose Carboxyhemoglobin Sodium Potassium Chloride Carbon Dioxide BUN 56 H Creatinine 1.6 H Glucose 176 H POC Glucose 149 H Lactic Acid Calcium 7.0 L Phosphorus Magnesium Ferritin Direct Bilirubin AST 244 H ALT 159 H Alkaline Phosphatase Lactate Dehydrogenase Total Creatine Kinase C-Reactive Protein Total Protein 4.9 L D Albumin 2.5 L Triglycerides Arterial Blood Glucose Arterial Blood Ionized Calcium Urine Creatinine Urine Chloride Vancomycin Trough Coronavirus (PCR) Crossmatch 06/19/20 06/19/20 06/19/20 04:00 05:44 11:42 WBC RBC Hgb Hct MCHC RDW Lymph % (Auto) [place] % (Auto) Lymph # (Auto) [place] # (Auto) Eos # (Auto) Seg Neutrophils % Seg Neuts % (Manual) Lymphocytes % (Manual) Monocytes % (Manual) Nucleated RBC % Seg Neutrophils # Seg Neutrophils # Man Lymphocytes # (Manual) Monocytes # (Manual) Eosinophils # (Manual) PT INR APTT D-Dimer Heparin Anti-Xa Level ABG pH 7.265 L POC ABG pCO2 51.8 H POC ABG pO2 65.1 L ABG pO2 ABG HCO3 ABG Hemoglobin ABG Oxyhemoglobin ABG Sodium ABG Potassium ABG Chloride ABG Glucose 184 H Carboxyhemoglobin Sodium Potassium Chloride Carbon Dioxide BUN Creatinine Glucose POC Glucose 156 H 191 H Lactic Acid Calcium Phosphorus Magnesium Ferritin Direct Bilirubin AST ALT Alkaline Phosphatase Lactate Dehydrogenase Total Creatine Kinase C-Reactive Protein Total Protein Albumin Triglycerides Arterial Blood Glucose 184 H Arterial Blood Ionized Calcium 4.3 L Urine Creatinine Urine Chloride Vancomycin Trough Coronavirus (PCR) Crossmatch 06/19/20 06/19/20 06/19/20 12:30 17:16 18:36 WBC RBC Hgb Hct MCHC RDW Lymph % (Auto) [place] % (Auto) Lymph # (Auto) [place] # (Auto) Eos # (Auto) Seg Neutrophils % Seg Neuts % (Manual) Lymphocytes % (Manual) Monocytes % (Manual) Nucleated RBC % Seg Neutrophils # Seg Neutrophils # Man Lymphocytes # (Manual) Monocytes # (Manual) Eosinophils # (Manual) PT 16.4 H INR 1.32 H APTT D-Dimer Heparin Anti-Xa Level ABG pH 7.088 L POC ABG pCO2 78.1 H POC ABG pO2 208.3 H ABG pO2 ABG HCO3 ABG Hemoglobin ABG Oxyhemoglobin 98.3 H ABG Sodium ABG Potassium 5.0 H ABG Chloride ABG Glucose 182 H Carboxyhemoglobin 0.4 L Sodium Potassium Chloride Carbon Dioxide BUN Creatinine Glucose POC Glucose 154 H Lactic Acid Calcium Phosphorus Magnesium Ferritin Direct Bilirubin AST ALT Alkaline Phosphatase Lactate Dehydrogenase Total Creatine Kinase C-Reactive Protein Total Protein Albumin Triglycerides Arterial Blood Glucose 182 H Arterial Blood Ionized Calcium 4.3 L Urine Creatinine Urine Chloride Vancomycin Trough Coronavirus (PCR) Crossmatch 06/19/20 06/20/20 06/20/20 23:32 03:00 05:19 WBC RBC Hgb Hct MCHC RDW Lymph % (Auto) [place] % (Auto) Lymph # (Auto) [place] # (Auto) Eos # (Auto) Seg Neutrophils % Seg Neuts % (Manual) Lymphocytes % (Manual) Monocytes % (Manual) Nucleated RBC % Seg Neutrophils # Seg Neutrophils # Man Lymphocytes # (Manual) Monocytes # (Manual) Eosinophils # (Manual) PT INR APTT D-Dimer Heparin Anti-Xa Level 0.77 H ABG pH POC ABG pCO2 POC ABG pO2 ABG pO2 ABG HCO3 ABG Hemoglobin ABG Oxyhemoglobin ABG Sodium ABG Potassium ABG Chloride ABG Glucose Carboxyhemoglobin Sodium Potassium Chloride Carbon Dioxide BUN Creatinine Glucose POC Glucose 201 H 190 H Lactic Acid Calcium Phosphorus Magnesium Ferritin Direct Bilirubin AST ALT Alkaline Phosphatase Lactate Dehydrogenase Total Creatine Kinase C-Reactive Protein Total Protein Albumin Triglycerides Arterial Blood Glucose Arterial Blood Ionized Calcium Urine Creatinine Urine Chloride Vancomycin Trough Coronavirus (PCR) Crossmatch 06/20/20 06/20/20 06/20/20 08:25 08:25 11:36 WBC RBC Hgb Hct MCHC RDW Lymph % (Auto) [place] % (Auto) Lymph # (Auto) [place] # (Auto) Eos # (Auto) Seg Neutrophils % Seg Neuts % (Manual) Lymphocytes % (Manual) Monocytes % (Manual) Nucleated RBC % Seg Neutrophils # Seg Neutrophils # Man Lymphocytes # (Manual) Monocytes # (Manual) Eosinophils # (Manual) PT INR APTT D-Dimer Heparin Anti-Xa Level ABG pH POC ABG pCO2 POC ABG pO2 ABG pO2 ABG HCO3 ABG Hemoglobin ABG Oxyhemoglobin ABG Sodium ABG Potassium ABG Chloride ABG Glucose Carboxyhemoglobin Sodium 135 L Potassium 5.4 H Chloride 109.2 H Carbon Dioxide 19 L BUN 68 H Creatinine 2.5 H D Glucose 201 H POC Glucose 184 H Lactic Acid Calcium 5.5 L* D Phosphorus Magnesium Ferritin Direct Bilirubin AST 123 H ALT 86 H Alkaline Phosphatase Lactate Dehydrogenase Total Creatine Kinase C-Reactive Protein Total Protein 4.6 L Albumin 1.5 L Triglycerides Arterial Blood Glucose Arterial Blood Ionized Calcium Urine Creatinine Urine Chloride Vancomycin Trough 22.7 H Coronavirus (PCR) Crossmatch 06/20/20 06/20/20 06/20/20 11:40 17:28 20:00 WBC RBC Hgb Hct MCHC RDW Lymph % (Auto) [place] % (Auto) Lymph # (Auto) [place] # (Auto) Eos # (Auto) Seg Neutrophils % Seg Neuts % (Manual) Lymphocytes % (Manual) Monocytes % (Manual) Nucleated RBC % Seg Neutrophils # Seg Neutrophils # Man Lymphocytes # (Manual) Monocytes # (Manual) Eosinophils # (Manual) PT INR APTT D-Dimer Heparin Anti-Xa Level 0.89 H ABG pH 7.099 L POC ABG pCO2 61.1 H POC ABG pO2 ABG pO2 ABG HCO3 ABG Hemoglobin ABG Oxyhemoglobin ABG Sodium ABG Potassium 5.0 H ABG Chloride 111.0 H ABG Glucose 200 H Carboxyhemoglobin 0.4 L Sodium Potassium Chloride Carbon Dioxide BUN Creatinine Glucose POC Glucose 165 H Lactic Acid Calcium Phosphorus Magnesium Ferritin Direct Bilirubin AST ALT Alkaline Phosphatase Lactate Dehydrogenase Total Creatine Kinase C-Reactive Protein Total Protein Albumin Triglycerides Arterial Blood Glucose 200 H Arterial Blood Ionized Calcium 4.2 L Urine Creatinine Urine Chloride Vancomycin Trough Coronavirus (PCR) Crossmatch 06/20/20 06/21/20 06/21/20 23:29 05:00 05:20 WBC RBC Hgb Hct MCHC RDW Lymph % (Auto) [place] % (Auto) Lymph # (Auto) [place] # (Auto) Eos # (Auto) Seg Neutrophils % Seg Neuts % (Manual) Lymphocytes % (Manual) Monocytes % (Manual) Nucleated RBC % Seg Neutrophils # Seg Neutrophils # Man Lymphocytes # (Manual) Monocytes # (Manual) Eosinophils # (Manual) PT INR APTT D-Dimer Heparin Anti-Xa Level ABG pH POC ABG pCO2 POC ABG pO2 ABG pO2 ABG HCO3 ABG Hemoglobin ABG Oxyhemoglobin ABG Sodium ABG Potassium ABG Chloride ABG Glucose Carboxyhemoglobin Sodium Potassium Chloride 112.0 H Carbon Dioxide 20 L BUN 92 H Creatinine 3.9 H D Glucose 214 H POC Glucose 145 H 191 H Lactic Acid Calcium 6.5 L D Phosphorus Magnesium Ferritin Direct Bilirubin AST 98 H ALT 84 H Alkaline Phosphatase Lactate Dehydrogenase Total Creatine Kinase C-Reactive Protein Total Protein 4.6 L Albumin 2.1 L Triglycerides 180 H Arterial Blood Glucose Arterial Blood Ionized Calcium Urine Creatinine Urine Chloride Vancomycin Trough Coronavirus (PCR) Crossmatch 06/21/20 06/21/20 06/21/20 08:56 11:12 12:43 WBC RBC Hgb Hct MCHC RDW Lymph % (Auto) [place] % (Auto) Lymph # (Auto) [place] # (Auto) Eos # (Auto) Seg Neutrophils % Seg Neuts % (Manual) Lymphocytes % (Manual) Monocytes % (Manual) Nucleated RBC % Seg Neutrophils # Seg Neutrophils # Man Lymphocytes # (Manual) Monocytes # (Manual) Eosinophils # (Manual) PT INR APTT D-Dimer Heparin Anti-Xa Level 0.28 L ABG pH 7.184 L POC ABG pCO2 48.3 H POC ABG pO2 172.1 H ABG pO2 ABG HCO3 ABG Hemoglobin ABG Oxyhemoglobin 98.7 H ABG Sodium ABG Potassium 4.9 H ABG Chloride 112.0 H ABG Glucose 196 H Carboxyhemoglobin 0.2 L Sodium Potassium Chloride Carbon Dioxide BUN Creatinine Glucose POC Glucose 177 H Lactic Acid Calcium Phosphorus Magnesium Ferritin Direct Bilirubin AST ALT Alkaline Phosphatase Lactate Dehydrogenase Total Creatine Kinase C-Reactive Protein Total Protein Albumin Triglycerides Arterial Blood Glucose 196 H Arterial Blood Ionized Calcium 4.1 L Urine Creatinine Urine Chloride Vancomycin Trough Coronavirus (PCR) Crossmatch 06/21/20 06/21/20 06/22/20 16:31 Unknown 00:12 WBC RBC Hgb Hct MCHC RDW Lymph % (Auto) [place] % (Auto) Lymph # (Auto) [place] # (Auto) Eos # (Auto) Seg Neutrophils % Seg Neuts % (Manual) Lymphocytes % (Manual) Monocytes % (Manual) Nucleated RBC % Seg Neutrophils # Seg Neutrophils # Man Lymphocytes # (Manual) Monocytes # (Manual) Eosinophils # (Manual) PT INR APTT D-Dimer Heparin Anti-Xa Level 0.78 H ABG pH POC ABG pCO2 POC ABG pO2 ABG pO2 ABG HCO3 ABG Hemoglobin ABG Oxyhemoglobin ABG Sodium ABG Potassium ABG Chloride ABG Glucose Carboxyhemoglobin Sodium Potassium Chloride Carbon Dioxide BUN Creatinine Glucose POC Glucose 150 H 173 H Lactic Acid Calcium Phosphorus Magnesium Ferritin Direct Bilirubin AST ALT Alkaline Phosphatase Lactate Dehydrogenase Total Creatine Kinase C-Reactive Protein Total Protein Albumin Triglycerides Arterial Blood Glucose Arterial Blood Ionized Calcium Urine Creatinine Urine Chloride Vancomycin Trough Coronavirus (PCR) Crossmatch 06/22/20 06/22/20 06/22/20 04:00 05:04 05:30 WBC 33.9 H RBC Hgb 11.7 L Hct 35.2 L MCHC RDW 15.8 H Lymph % (Auto) [place] % (Auto) Lymph # (Auto) [place] # (Auto) Eos # (Auto) Seg Neutrophils % Seg Neuts % (Manual) 93.0 H Lymphocytes % (Manual) 5.0 L Monocytes % (Manual) Nucleated RBC % Seg Neutrophils # Seg Neutrophils # Man 31.5 H Lymphocytes # (Manual) Monocytes # (Manual) Eosinophils # (Manual) PT INR APTT D-Dimer Heparin Anti-Xa Level ABG pH 7.169 L POC ABG pCO2 POC ABG pO2 ABG pO2 ABG HCO3 ABG Hemoglobin ABG Oxyhemoglobin ABG Sodium ABG Potassium 5.1 H ABG Chloride 112.0 H ABG Glucose 186 H Carboxyhemoglobin 0.3 L Sodium Potassium Chloride Carbon Dioxide BUN Creatinine Glucose POC Glucose 161 H Lactic Acid Calcium Phosphorus Magnesium Ferritin Direct Bilirubin AST ALT Alkaline Phosphatase Lactate Dehydrogenase Total Creatine Kinase C-Reactive Protein Total Protein Albumin Triglycerides Arterial Blood Glucose 186 H Arterial Blood Ionized Calcium 4.1 L Urine Creatinine Urine Chloride Vancomycin Trough Coronavirus (PCR) Crossmatch 06/22/20 06/22/20 06/22/20 05:30 11:39 13:27 WBC RBC Hgb Hct MCHC RDW Lymph % (Auto) [place] % (Auto) Lymph # (Auto) [place] # (Auto) Eos # (Auto) Seg Neutrophils % Seg Neuts % (Manual) Lymphocytes % (Manual) Monocytes % (Manual) Nucleated RBC % Seg Neutrophils # Seg Neutrophils # Man Lymphocytes # (Manual) Monocytes # (Manual) Eosinophils # (Manual) PT INR APTT D-Dimer Heparin Anti-Xa Level ABG pH POC ABG pCO2 POC ABG pO2 ABG pO2 ABG HCO3 ABG Hemoglobin ABG Oxyhemoglobin ABG Sodium ABG Potassium ABG Chloride ABG Glucose Carboxyhemoglobin Sodium Potassium 5.7 H Chloride 111.3 H Carbon Dioxide 18 L BUN 112 H Creatinine 5.0 H Glucose 173 H POC Glucose 172 H 176 H Lactic Acid Calcium 6.7 L Phosphorus Magnesium Ferritin Direct Bilirubin AST ALT Alkaline Phosphatase Lactate Dehydrogenase Total Creatine Kinase C-Reactive Protein Total Protein Albumin Triglycerides Arterial Blood Glucose Arterial Blood Ionized Calcium Urine Creatinine Urine Chloride Vancomycin Trough Coronavirus (PCR) Crossmatch 06/22/20 06/22/20 06/22/20 14:37 17:00 17:40 WBC RBC Hgb Hct MCHC RDW Lymph % (Auto) [place] % (Auto) Lymph # (Auto) [place] # (Auto) Eos # (Auto) Seg Neutrophils % Seg Neuts % (Manual) Lymphocytes % (Manual) Monocytes % (Manual) Nucleated RBC % Seg Neutrophils # Seg Neutrophils # Man Lymphocytes # (Manual) Monocytes # (Manual) Eosinophils # (Manual) PT INR APTT D-Dimer Heparin Anti-Xa Level 1.32 H ABG pH POC ABG pCO2 POC ABG pO2 ABG pO2 ABG HCO3 ABG Hemoglobin ABG Oxyhemoglobin ABG Sodium ABG Potassium ABG Chloride ABG Glucose Carboxyhemoglobin Sodium Potassium Chloride Carbon Dioxide BUN Creatinine Glucose POC Glucose 171 H Lactic Acid Calcium Phosphorus Magnesium Ferritin Direct Bilirubin AST ALT Alkaline Phosphatase Lactate Dehydrogenase Total Creatine Kinase C-Reactive Protein 5.30 H Total Protein Albumin Triglycerides Arterial Blood Glucose Arterial Blood Ionized Calcium Urine Creatinine Urine Chloride Vancomycin Trough Coronavirus (PCR) Crossmatch 06/22/20 06/23/20 06/23/20 23:36 02:13 02:41 WBC RBC Hgb Hct MCHC RDW Lymph % (Auto) [place] % (Auto) Lymph # (Auto) [place] # (Auto) Eos # (Auto) Seg Neutrophils % Seg Neuts % (Manual) Lymphocytes % (Manual) Monocytes % (Manual) Nucleated RBC % Seg Neutrophils # Seg Neutrophils # Man Lymphocytes # (Manual) Monocytes # (Manual) Eosinophils # (Manual) PT INR APTT D-Dimer Heparin Anti-Xa Level 0.21 L ABG pH 7.318 L POC ABG pCO2 POC ABG pO2 157.5 H ABG pO2 ABG HCO3 ABG Hemoglobin ABG Oxyhemoglobin ABG Sodium 135.6 L ABG Potassium 4.6 H ABG Chloride 110.0 H ABG Glucose 169 H Carboxyhemoglobin Sodium Potassium Chloride Carbon Dioxide BUN Creatinine Glucose POC Glucose 155 H Lactic Acid Calcium Phosphorus Magnesium Ferritin Direct Bilirubin AST ALT Alkaline Phosphatase Lactate Dehydrogenase Total Creatine Kinase C-Reactive Protein Total Protein Albumin Triglycerides Arterial Blood Glucose 169 H Arterial Blood Ionized Calcium Urine Creatinine Urine Chloride Vancomycin Trough Coronavirus (PCR) Crossmatch 06/23/20 06/23/20 06/23/20 04:00 04:00 05:24 WBC 27.4 H RBC Hgb 11.3 L Hct 33.8 L MCHC RDW Lymph % (Auto) [place] % (Auto) Lymph # (Auto) [place] # (Auto) Eos # (Auto) Seg Neutrophils % Seg Neuts % (Manual) 93.0 H Lymphocytes % (Manual) 1.0 L Monocytes % (Manual) Nucleated RBC % 1.0 H Seg Neutrophils # Seg Neutrophils # Man 25.5 H Lymphocytes # (Manual) 0.3 L Monocytes # (Manual) 1.1 H Eosinophils # (Manual) PT INR APTT D-Dimer Heparin Anti-Xa Level ABG pH POC ABG pCO2 POC ABG pO2 ABG pO2 ABG HCO3 ABG Hemoglobin ABG Oxyhemoglobin ABG Sodium ABG Potassium ABG Chloride ABG Glucose Carboxyhemoglobin Sodium Potassium Chloride 107.6 H Carbon Dioxide 20 L BUN 100 H Creatinine 4.7 H Glucose 168 H POC Glucose 151 H Lactic Acid Calcium Phosphorus Magnesium Ferritin Direct Bilirubin AST ALT Alkaline Phosphatase Lactate Dehydrogenase Total Creatine Kinase C-Reactive Protein Total Protein Albumin Triglycerides Arterial Blood Glucose Arterial Blood Ionized Calcium Urine Creatinine Urine Chloride Vancomycin Trough Coronavirus (PCR) Crossmatch 06/23/20 06/23/20 06/23/20 11:30 17:18 23:50 WBC RBC Hgb Hct MCHC RDW Lymph % (Auto) [place] % (Auto) Lymph # (Auto) [place] # (Auto) Eos # (Auto) Seg Neutrophils % Seg Neuts % (Manual) Lymphocytes % (Manual) Monocytes % (Manual) Nucleated RBC % Seg Neutrophils # Seg Neutrophils # Man Lymphocytes # (Manual) Monocytes # (Manual) Eosinophils # (Manual) PT INR APTT D-Dimer Heparin Anti-Xa Level ABG pH POC ABG pCO2 POC ABG pO2 ABG pO2 ABG HCO3 ABG Hemoglobin ABG Oxyhemoglobin ABG Sodium ABG Potassium ABG Chloride ABG Glucose Carboxyhemoglobin Sodium Potassium Chloride Carbon Dioxide BUN Creatinine Glucose POC Glucose 157 H 156 H 162 H Lactic Acid Calcium Phosphorus Magnesium Ferritin Direct Bilirubin AST ALT Alkaline Phosphatase Lactate Dehydrogenase Total Creatine Kinase C-Reactive Protein Total Protein Albumin Triglycerides Arterial Blood Glucose Arterial Blood Ionized Calcium Urine Creatinine Urine Chloride Vancomycin Trough Coronavirus (PCR) Crossmatch 06/24/20 06/24/20 06/24/20 04:41 05:57 06:30 WBC 34.3 H RBC Hgb 10.9 L Hct 32.6 L MCHC RDW Lymph % (Auto) 2.0 L [place] % (Auto) Lymph # (Auto) 0.7 L [place] # (Auto) 1.2 H Eos # (Auto) Seg Neutrophils % Seg Neuts % (Manual) 96.0 H Lymphocytes % (Manual) 3.0 L Monocytes % (Manual) Nucleated RBC % Seg Neutrophils # 32.3 H Seg Neutrophils # Man 32.9 H Lymphocytes # (Manual) 1.0 L Monocytes # (Manual) Eosinophils # (Manual) PT INR APTT D-Dimer Heparin Anti-Xa Level ABG pH POC ABG pCO2 POC ABG pO2 71.1 L ABG pO2 ABG HCO3 ABG Hemoglobin ABG Oxyhemoglobin 92.4 L ABG Sodium 115.6 L ABG Potassium ABG Chloride ABG Glucose 159 H Carboxyhemoglobin Sodium Potassium Chloride Carbon Dioxide BUN Creatinine Glucose POC Glucose 143 H Lactic Acid Calcium Phosphorus Magnesium Ferritin Direct Bilirubin AST ALT Alkaline Phosphatase Lactate Dehydrogenase Total Creatine Kinase C-Reactive Protein Total Protein Albumin Triglycerides Arterial Blood Glucose 159 H Arterial Blood Ionized Calcium 4.2 L Urine Creatinine Urine Chloride Vancomycin Trough Coronavirus (PCR) Crossmatch 06/24/20 06/24/20 06/24/20 07:03 09:37 11:56 WBC RBC Hgb Hct MCHC RDW Lymph % (Auto) [place] % (Auto) Lymph # (Auto) [place] # (Auto) Eos # (Auto) Seg Neutrophils % Seg Neuts % (Manual) Lymphocytes % (Manual) Monocytes % (Manual) Nucleated RBC % Seg Neutrophils # Seg Neutrophils # Man Lymphocytes # (Manual) Monocytes # (Manual) Eosinophils # (Manual) PT INR APTT D-Dimer Heparin Anti-Xa Level 0.26 L ABG pH POC ABG pCO2 POC ABG pO2 ABG pO2 ABG HCO3 ABG Hemoglobin ABG Oxyhemoglobin ABG Sodium ABG Potassium ABG Chloride ABG Glucose Carboxyhemoglobin Sodium Potassium 5.1 H Chloride Carbon Dioxide BUN 103 H Creatinine 5.0 H Glucose 163 H POC Glucose 149 H Lactic Acid Calcium 7.6 L Phosphorus Magnesium Ferritin Direct Bilirubin AST ALT Alkaline Phosphatase Lactate Dehydrogenase Total Creatine Kinase C-Reactive Protein Total Protein Albumin Triglycerides Arterial Blood Glucose Arterial Blood Ionized Calcium Urine Creatinine Urine Chloride Vancomycin Trough Coronavirus (PCR) Crossmatch 06/24/20 06/25/20 06/25/20 18:09 01:05 03:00 WBC RBC Hgb 10.6 L Hct 32.1 L MCHC RDW Lymph % (Auto) [place] % (Auto) Lymph # (Auto) [place] # (Auto) Eos # (Auto) Seg Neutrophils % Seg Neuts % (Manual) Lymphocytes % (Manual) Monocytes % (Manual) Nucleated RBC % Seg Neutrophils # Seg Neutrophils # Man Lymphocytes # (Manual) Monocytes # (Manual) Eosinophils # (Manual) PT INR APTT D-Dimer Heparin Anti-Xa Level ABG pH POC ABG pCO2 POC ABG pO2 ABG pO2 ABG HCO3 ABG Hemoglobin ABG Oxyhemoglobin ABG Sodium ABG Potassium ABG Chloride ABG Glucose Carboxyhemoglobin Sodium Potassium Chloride Carbon Dioxide BUN Creatinine Glucose POC Glucose 141 H 137 H Lactic Acid Calcium Phosphorus Magnesium Ferritin Direct Bilirubin AST ALT Alkaline Phosphatase Lactate Dehydrogenase Total Creatine Kinase C-Reactive Protein Total Protein Albumin Triglycerides Arterial Blood Glucose Arterial Blood Ionized Calcium Urine Creatinine Urine Chloride Vancomycin Trough Coronavirus (PCR) Crossmatch 06/25/20 06/25/20 06/25/20 03:48 05:17 12:08 WBC RBC Hgb Hct MCHC RDW Lymph % (Auto) [place] % (Auto) Lymph # (Auto) [place] # (Auto) Eos # (Auto) Seg Neutrophils % Seg Neuts % (Manual) Lymphocytes % (Manual) Monocytes % (Manual) Nucleated RBC % Seg Neutrophils # Seg Neutrophils # Man Lymphocytes # (Manual) Monocytes # (Manual) Eosinophils # (Manual) PT INR APTT D-Dimer Heparin Anti-Xa Level ABG pH POC ABG pCO2 29.4 L POC ABG pO2 67.1 L ABG pO2 ABG HCO3 ABG Hemoglobin 11.5 L ABG Oxyhemoglobin ABG Sodium 124.1 L ABG Potassium 4.6 H ABG Chloride ABG Glucose 159 H Carboxyhemoglobin Sodium Potassium Chloride Carbon Dioxide BUN Creatinine Glucose POC Glucose 149 H 150 H Lactic Acid Calcium Phosphorus Magnesium Ferritin Direct Bilirubin AST ALT Alkaline Phosphatase Lactate Dehydrogenase Total Creatine Kinase C-Reactive Protein Total Protein Albumin Triglycerides Arterial Blood Glucose 159 H Arterial Blood Ionized Calcium 4.2 L Urine Creatinine Urine Chloride Vancomycin Trough Coronavirus (PCR) Crossmatch 06/25/20 06/25/20 06/25/20 16:27 16:35 17:27 WBC RBC Hgb Hct MCHC RDW Lymph % (Auto) [place] % (Auto) Lymph # (Auto) [place] # (Auto) Eos # (Auto) Seg Neutrophils % Seg Neuts % (Manual) Lymphocytes % (Manual) Monocytes % (Manual) Nucleated RBC % Seg Neutrophils # Seg Neutrophils # Man Lymphocytes # (Manual) Monocytes # (Manual) Eosinophils # (Manual) PT INR APTT D-Dimer Heparin Anti-Xa Level < 0.10 L ABG pH POC ABG pCO2 POC ABG pO2 ABG pO2 ABG HCO3 ABG Hemoglobin ABG Oxyhemoglobin ABG Sodium ABG Potassium ABG Chloride ABG Glucose Carboxyhemoglobin Sodium Potassium Chloride Carbon Dioxide BUN Creatinine Glucose POC Glucose 143 H 156 H Lactic Acid Calcium Phosphorus Magnesium Ferritin Direct Bilirubin AST ALT Alkaline Phosphatase Lactate Dehydrogenase Total Creatine Kinase C-Reactive Protein Total Protein Albumin Triglycerides Arterial Blood Glucose Arterial Blood Ionized Calcium Urine Creatinine Urine Chloride Vancomycin Trough Coronavirus (PCR) Crossmatch 06/25/20 06/25/20 06/25/20 20:00 20:55 23:10 WBC 32.7 H RBC 3.06 L Hgb 9.0 L 9.5 L Hct 26.7 L 28.6 L MCHC RDW Lymph % (Auto) [place] % (Auto) Lymph # (Auto) [place] # (Auto) Eos # (Auto) Seg Neutrophils % Seg Neuts % (Manual) Lymphocytes % (Manual) 2.0 L Monocytes % (Manual) Nucleated RBC % Seg Neutrophils # Seg Neutrophils # Man 30.7 H Lymphocytes # (Manual) 0.7 L Monocytes # (Manual) 1.3 H Eosinophils # (Manual) PT 17.7 H INR 1.47 H APTT 65.8 H* D-Dimer Heparin Anti-Xa Level ABG pH POC ABG pCO2 POC ABG pO2 ABG pO2 ABG HCO3 ABG Hemoglobin ABG Oxyhemoglobin ABG Sodium ABG Potassium ABG Chloride ABG Glucose Carboxyhemoglobin Sodium Potassium Chloride Carbon Dioxide BUN Creatinine Glucose POC Glucose Lactic Acid Calcium Phosphorus Magnesium Ferritin Direct Bilirubin AST ALT Alkaline Phosphatase Lactate Dehydrogenase Total Creatine Kinase C-Reactive Protein Total Protein Albumin Triglycerides Arterial Blood Glucose Arterial Blood Ionized Calcium Urine Creatinine Urine Chloride Vancomycin Trough Coronavirus (PCR) Crossmatch 06/25/20 06/26/20 06/26/20 23:14 01:30 03:25 WBC RBC Hgb Hct MCHC RDW Lymph % (Auto) [place] % (Auto) Lymph # (Auto) [place] # (Auto) Eos # (Auto) Seg Neutrophils % Seg Neuts % (Manual) Lymphocytes % (Manual) Monocytes % (Manual) Nucleated RBC % Seg Neutrophils # Seg Neutrophils # Man Lymphocytes # (Manual) Monocytes # (Manual) Eosinophils # (Manual) PT INR APTT D-Dimer Heparin Anti-Xa Level < 0.10 L ABG pH POC ABG pCO2 POC ABG pO2 ABG pO2 ABG HCO3 ABG Hemoglobin 11.8 L ABG Oxyhemoglobin ABG Sodium 127.1 L ABG Potassium 5.4 H ABG Chloride ABG Glucose 155 H Carboxyhemoglobin 0.3 L Sodium Potassium Chloride Carbon Dioxide BUN Creatinine Glucose POC Glucose 148 H Lactic Acid Calcium Phosphorus Magnesium Ferritin Direct Bilirubin AST ALT Alkaline Phosphatase Lactate Dehydrogenase Total Creatine Kinase C-Reactive Protein Total Protein Albumin Triglycerides Arterial Blood Glucose 155 H Arterial Blood Ionized Calcium 4.2 L Urine Creatinine Urine Chloride Vancomycin Trough Coronavirus (PCR) Crossmatch 06/26/20 06/26/20 06/26/20 03:59 05:14 05:47 WBC 36.5 H RBC 3.26 L Hgb 9.7 L Hct 28.2 L MCHC RDW Lymph % (Auto) [place] % (Auto) Lymph # (Auto) [place] # (Auto) Eos # (Auto) Seg Neutrophils % Seg Neuts % (Manual) 92.0 H Lymphocytes % (Manual) 4.0 L Monocytes % (Manual) Nucleated RBC % Seg Neutrophils # Seg Neutrophils # Man 33.6 H Lymphocytes # (Manual) Monocytes # (Manual) Eosinophils # (Manual) PT INR APTT D-Dimer Heparin Anti-Xa Level ABG pH POC ABG pCO2 POC ABG pO2 ABG pO2 ABG HCO3 ABG Hemoglobin ABG Oxyhemoglobin ABG Sodium ABG Potassium ABG Chloride ABG Glucose Carboxyhemoglobin Sodium Potassium 5.9 H Chloride Carbon Dioxide 20 L BUN 144 H Creatinine 6.4 H Glucose 149 H POC Glucose 128 H Lactic Acid Calcium 7.6 L Phosphorus Magnesium Ferritin Direct Bilirubin AST ALT Alkaline Phosphatase Lactate Dehydrogenase Total Creatine Kinase C-Reactive Protein Total Protein Albumin Triglycerides Arterial Blood Glucose Arterial Blood Ionized Calcium Urine Creatinine Urine Chloride Vancomycin Trough Coronavirus (PCR) Crossmatch 06/26/20 06/26/20 06/26/20 05:47 12:47 17:42 WBC RBC Hgb Hct MCHC RDW Lymph % (Auto) [place] % (Auto) Lymph # (Auto) [place] # (Auto) Eos # (Auto) Seg Neutrophils % Seg Neuts % (Manual) Lymphocytes % (Manual) Monocytes % (Manual) Nucleated RBC % Seg Neutrophils # Seg Neutrophils # Man Lymphocytes # (Manual) Monocytes # (Manual) Eosinophils # (Manual) PT 17.4 H INR 1.44 H APTT D-Dimer Heparin Anti-Xa Level ABG pH POC ABG pCO2 POC ABG pO2 ABG pO2 ABG HCO3 ABG Hemoglobin ABG Oxyhemoglobin ABG Sodium ABG Potassium ABG Chloride ABG Glucose Carboxyhemoglobin Sodium Potassium Chloride Carbon Dioxide BUN Creatinine Glucose POC Glucose 124 H 127 H Lactic Acid Calcium Phosphorus Magnesium Ferritin Direct Bilirubin AST ALT Alkaline Phosphatase Lactate Dehydrogenase Total Creatine Kinase C-Reactive Protein Total Protein Albumin Triglycerides Arterial Blood Glucose Arterial Blood Ionized Calcium Urine Creatinine Urine Chloride Vancomycin Trough Coronavirus (PCR) Crossmatch 06/26/20 06/27/20 06/27/20 23:30 03:32 04:00 WBC RBC Hgb 8.7 L Hct 26.4 L MCHC RDW Lymph % (Auto) [place] % (Auto) Lymph # (Auto) [place] # (Auto) Eos # (Auto) Seg Neutrophils % Seg Neuts % (Manual) Lymphocytes % (Manual) Monocytes % (Manual) Nucleated RBC % Seg Neutrophils # Seg Neutrophils # Man Lymphocytes # (Manual) Monocytes # (Manual) Eosinophils # (Manual) PT INR APTT D-Dimer Heparin Anti-Xa Level ABG pH 7.298 L POC ABG pCO2 POC ABG pO2 ABG pO2 ABG HCO3 ABG Hemoglobin 9.6 L ABG Oxyhemoglobin ABG Sodium 124.4 L ABG Potassium 6.6 H ABG Chloride ABG Glucose 136 H Carboxyhemoglobin Sodium Potassium Chloride Carbon Dioxide BUN Creatinine Glucose POC Glucose 123 H Lactic Acid Calcium Phosphorus Magnesium Ferritin Direct Bilirubin AST ALT Alkaline Phosphatase Lactate Dehydrogenase Total Creatine Kinase C-Reactive Protein Total Protein Albumin Triglycerides Arterial Blood Glucose 136 H Arterial Blood Ionized Calcium 4.1 L Urine Creatinine Urine Chloride Vancomycin Trough Coronavirus (PCR) Crossmatch 06/27/20 06/27/20 06/27/20 05:26 10:14 11:58 WBC RBC Hgb Hct MCHC RDW Lymph % (Auto) [place] % (Auto) Lymph # (Auto) [place] # (Auto) Eos # (Auto) Seg Neutrophils % Seg Neuts % (Manual) Lymphocytes % (Manual) Monocytes % (Manual) Nucleated RBC % Seg Neutrophils # Seg Neutrophils # Man Lymphocytes # (Manual) Monocytes # (Manual) Eosinophils # (Manual) PT INR APTT D-Dimer Heparin Anti-Xa Level ABG pH POC ABG pCO2 POC ABG pO2 ABG pO2 ABG HCO3 ABG Hemoglobin ABG Oxyhemoglobin ABG Sodium ABG Potassium ABG Chloride ABG Glucose Carboxyhemoglobin Sodium 136 L Potassium 7.0 H* Chloride 97.8 L Carbon Dioxide BUN 172 H Creatinine 7.4 H Glucose 129 H POC Glucose 124 H 115 H Lactic Acid Calcium 7.6 L Phosphorus Magnesium Ferritin Direct Bilirubin AST ALT Alkaline Phosphatase Lactate Dehydrogenase Total Creatine Kinase C-Reactive Protein Total Protein Albumin Triglycerides Arterial Blood Glucose Arterial Blood Ionized Calcium Urine Creatinine Urine Chloride Vancomycin Trough Coronavirus (PCR) Crossmatch 06/27/20 06/27/20 06/27/20 17:32 18:30 23:24 WBC RBC Hgb Hct MCHC RDW Lymph % (Auto) [place] % (Auto) Lymph # (Auto) [place] # (Auto) Eos # (Auto) Seg Neutrophils % Seg Neuts % (Manual) Lymphocytes % (Manual) Monocytes % (Manual) Nucleated RBC % Seg Neutrophils # Seg Neutrophils # Man Lymphocytes # (Manual) Monocytes # (Manual) Eosinophils # (Manual) PT INR APTT D-Dimer Heparin Anti-Xa Level ABG pH POC ABG pCO2 POC ABG pO2 ABG pO2 ABG HCO3 ABG Hemoglobin ABG Oxyhemoglobin ABG Sodium ABG Potassium ABG Chloride ABG Glucose Carboxyhemoglobin Sodium Potassium 7.3 H* Chloride Carbon Dioxide BUN Creatinine Glucose POC Glucose 122 H 116 H Lactic Acid Calcium Phosphorus Magnesium Ferritin Direct Bilirubin AST ALT Alkaline Phosphatase Lactate Dehydrogenase Total Creatine Kinase C-Reactive Protein Total Protein Albumin Triglycerides Arterial Blood Glucose Arterial Blood Ionized Calcium Urine Creatinine Urine Chloride Vancomycin Trough Coronavirus (PCR) Crossmatch 06/28/20 06/28/20 06/28/20 00:00 02:16 05:37 WBC RBC Hgb Hct MCHC RDW Lymph % (Auto) [place] % (Auto) Lymph # (Auto) [place] # (Auto) Eos # (Auto) Seg Neutrophils % Seg Neuts % (Manual) Lymphocytes % (Manual) Monocytes % (Manual) Nucleated RBC % Seg Neutrophils # Seg Neutrophils # Man Lymphocytes # (Manual) Monocytes # (Manual) Eosinophils # (Manual) PT INR APTT D-Dimer Heparin Anti-Xa Level ABG pH POC ABG pCO2 POC ABG pO2 79.0 L ABG pO2 ABG HCO3 ABG Hemoglobin 11.7 L ABG Oxyhemoglobin ABG Sodium 128.1 L ABG Potassium 6.6 H ABG Chloride ABG Glucose 124 H Carboxyhemoglobin Sodium Potassium 7.3 H* Chloride Carbon Dioxide BUN Creatinine Glucose POC Glucose 115 H Lactic Acid Calcium Phosphorus Magnesium Ferritin Direct Bilirubin AST ALT Alkaline Phosphatase Lactate Dehydrogenase Total Creatine Kinase C-Reactive Protein Total Protein Albumin Triglycerides Arterial Blood Glucose 124 H Arterial Blood Ionized Calcium 4.2 L Urine Creatinine Urine Chloride Vancomycin Trough Coronavirus (PCR) Crossmatch 06/28/20 06/28/20 06/28/20 10:03 10:03 11:51 WBC 33.6 H RBC 3.03 L Hgb 8.9 L Hct 27.0 L MCHC RDW Lymph % (Auto) [place] % (Auto) Lymph # (Auto) [place] # (Auto) Eos # (Auto) Seg Neutrophils % Seg Neuts % (Manual) Lymphocytes % (Manual) Monocytes % (Manual) Nucleated RBC % Seg Neutrophils # Seg Neutrophils # Man Lymphocytes # (Manual) Monocytes # (Manual) Eosinophils # (Manual) PT INR APTT D-Dimer Heparin Anti-Xa Level ABG pH POC ABG pCO2 POC ABG pO2 ABG pO2 ABG HCO3 ABG Hemoglobin ABG Oxyhemoglobin ABG Sodium ABG Potassium ABG Chloride ABG Glucose Carboxyhemoglobin Sodium 136 L Potassium 6.5 H* Chloride Carbon Dioxide 20 L BUN 129 H Creatinine 5.8 H Glucose 113 H POC Glucose 107 H Lactic Acid Calcium 7.6 L Phosphorus Magnesium Ferritin Direct Bilirubin AST ALT Alkaline Phosphatase Lactate Dehydrogenase Total Creatine Kinase C-Reactive Protein Total Protein Albumin Triglycerides Arterial Blood Glucose Arterial Blood Ionized Calcium Urine Creatinine Urine Chloride Vancomycin Trough Coronavirus (PCR) Crossmatch 06/28/20 06/28/20 06/29/20 17:45 Unknown 03:15 WBC RBC Hgb Hct MCHC RDW Lymph % (Auto) [place] % (Auto) Lymph # (Auto) [place] # (Auto) Eos # (Auto) Seg Neutrophils % Seg Neuts % (Manual) Lymphocytes % (Manual) Monocytes % (Manual) Nucleated RBC % Seg Neutrophils # Seg Neutrophils # Man Lymphocytes # (Manual) Monocytes # (Manual) Eosinophils # (Manual) PT INR APTT D-Dimer Heparin Anti-Xa Level ABG pH POC ABG pCO2 POC ABG pO2 ABG pO2 ABG HCO3 ABG Hemoglobin 7.8 L ABG Oxyhemoglobin ABG Sodium 127.4 L ABG Potassium 5.5 H ABG Chloride 97.0 L ABG Glucose 96 H Carboxyhemoglobin Sodium Potassium 5.4 H Chloride Carbon Dioxide BUN Creatinine Glucose POC Glucose 117 H Lactic Acid Calcium Phosphorus Magnesium Ferritin Direct Bilirubin AST ALT Alkaline Phosphatase Lactate Dehydrogenase Total Creatine Kinase C-Reactive Protein Total Protein Albumin Triglycerides Arterial Blood Glucose 96 H Arterial Blood Ionized Calcium 4.0 L Urine Creatinine Urine Chloride Vancomycin Trough Coronavirus (PCR) Crossmatch 06/29/20 06/29/20 06/29/20 03:45 Unknown Unknown WBC RBC Hgb Hct MCHC RDW Lymph % (Auto) [place] % (Auto) Lymph # (Auto) [place] # (Auto) Eos # (Auto) Seg Neutrophils % Seg Neuts % (Manual) Lymphocytes % (Manual) Monocytes % (Manual) Nucleated RBC % Seg Neutrophils # Seg Neutrophils # Man Lymphocytes # (Manual) Monocytes # (Manual) Eosinophils # (Manual) PT INR APTT D-Dimer Heparin Anti-Xa Level ABG pH POC ABG pCO2 POC ABG pO2 ABG pO2 ABG HCO3 ABG Hemoglobin ABG Oxyhemoglobin ABG Sodium ABG Potassium ABG Chloride ABG Glucose Carboxyhemoglobin Sodium 135 L Potassium 6.0 H 6.1 H* Chloride 94.8 L Carbon Dioxide BUN 109 H 114 H Creatinine 5.5 H Glucose POC Glucose Lactic Acid Calcium 7.4 L Phosphorus Magnesium Ferritin Direct Bilirubin AST 47 H ALT Alkaline Phosphatase Lactate Dehydrogenase Total Creatine Kinase C-Reactive Protein Total Protein 4.9 L Albumin 2.2 L Triglycerides Arterial Blood Glucose Arterial Blood Ionized Calcium Urine Creatinine Urine Chloride Vancomycin Trough Coronavirus (PCR) Crossmatch 06/29/20 06/29/20 06/30/20 Unknown Unknown 03:32 WBC 20.7 H RBC 2.57 L Hgb 7.6 L Hct 23.0 L MCHC RDW Lymph % (Auto) [place] % (Auto) Lymph # (Auto) [place] # (Auto) Eos # (Auto) Seg Neutrophils % Seg Neuts % (Manual) Lymphocytes % (Manual) Monocytes % (Manual) Nucleated RBC % Seg Neutrophils # Seg Neutrophils # Man Lymphocytes # (Manual) Monocytes # (Manual) Eosinophils # (Manual) PT INR APTT D-Dimer Heparin Anti-Xa Level ABG pH POC ABG pCO2 POC ABG pO2 ABG pO2 ABG HCO3 ABG Hemoglobin 11.4 L ABG Oxyhemoglobin ABG Sodium 130.1 L ABG Potassium 5.0 H ABG Chloride ABG Glucose Carboxyhemoglobin Sodium Potassium Chloride Carbon Dioxide BUN Creatinine Glucose POC Glucose Lactic Acid Calcium Phosphorus Magnesium Ferritin Direct Bilirubin AST ALT Alkaline Phosphatase Lactate Dehydrogenase Total Creatine Kinase 618 H C-Reactive Protein Total Protein Albumin Triglycerides Arterial Blood Glucose Arterial Blood Ionized Calcium 3.9 L Urine Creatinine Urine Chloride Vancomycin Trough Coronavirus (PCR) Crossmatch 06/30/20 06/30/20 06/30/20 03:50 03:50 11:39 WBC 13.1 H RBC Hgb Hct MCHC RDW Lymph % (Auto) [place] % (Auto) Lymph # (Auto) [place] # (Auto) Eos # (Auto) Seg Neutrophils % Seg Neuts % (Manual) 95.0 H Lymphocytes % (Manual) 3.0 L Monocytes % (Manual) Nucleated RBC % Seg Neutrophils # Seg Neutrophils # Man 12.4 H Lymphocytes # (Manual) 0.4 L Monocytes # (Manual) Eosinophils # (Manual) PT INR APTT D-Dimer Heparin Anti-Xa Level ABG pH POC ABG pCO2 POC ABG pO2 ABG pO2 ABG HCO3 ABG Hemoglobin ABG Oxyhemoglobin ABG Sodium ABG Potassium ABG Chloride ABG Glucose Carboxyhemoglobin Sodium 135 L Potassium 5.4 H D Chloride 93.6 L Carbon Dioxide BUN 85 H Creatinine 4.6 H Glucose POC Glucose 111 H Lactic Acid Calcium 7.1 L Phosphorus 9.40 H Magnesium Ferritin Direct Bilirubin AST ALT Alkaline Phosphatase Lactate Dehydrogenase Total Creatine Kinase C-Reactive Protein Total Protein Albumin Triglycerides Arterial Blood Glucose Arterial Blood Ionized Calcium Urine Creatinine Urine Chloride Vancomycin Trough Coronavirus (PCR) Crossmatch 06/30/20 06/30/20 07/01/20 13:12 Unknown 03:19 WBC RBC Hgb 7.8 L D Hct 23.2 L D MCHC RDW Lymph % (Auto) [place] % (Auto) Lymph # (Auto) [place] # (Auto) Eos # (Auto) Seg Neutrophils % Seg Neuts % (Manual) Lymphocytes % (Manual) Monocytes % (Manual) Nucleated RBC % Seg Neutrophils # Seg Neutrophils # Man Lymphocytes # (Manual) Monocytes # (Manual) Eosinophils # (Manual) PT INR APTT D-Dimer Heparin Anti-Xa Level ABG pH 7.461 H POC ABG pCO2 POC ABG pO2 77.2 L ABG pO2 ABG HCO3 ABG Hemoglobin 6.9 L ABG Oxyhemoglobin ABG Sodium 128.5 L ABG Potassium ABG Chloride 97.0 L ABG Glucose Carboxyhemoglobin Sodium Potassium Chloride Carbon Dioxide BUN Creatinine Glucose POC Glucose Lactic Acid Calcium Phosphorus Magnesium Ferritin Direct Bilirubin AST ALT Alkaline Phosphatase Lactate Dehydrogenase Total Creatine Kinase C-Reactive Protein Total Protein Albumin Triglycerides Arterial Blood Glucose Arterial Blood Ionized Calcium 3.7 L Urine Creatinine Urine Chloride Vancomycin Trough Coronavirus (PCR) Positive A Crossmatch 07/01/20 07/01/20 07/01/20 06:00 06:00 11:04 WBC 16.7 H RBC 2.16 L Hgb 6.4 L Hct 19.2 L* MCHC RDW Lymph % (Auto) [place] % (Auto) Lymph # (Auto) [place] # (Auto) Eos # (Auto) Seg Neutrophils % Seg Neuts % (Manual) Lymphocytes % (Manual) Monocytes % (Manual) Nucleated RBC % Seg Neutrophils # Seg Neutrophils # Man Lymphocytes # (Manual) Monocytes # (Manual) Eosinophils # (Manual) PT INR APTT D-Dimer Heparin Anti-Xa Level ABG pH POC ABG pCO2 POC ABG pO2 ABG pO2 ABG HCO3 ABG Hemoglobin ABG Oxyhemoglobin ABG Sodium ABG Potassium ABG Chloride ABG Glucose Carboxyhemoglobin Sodium 136 L Potassium Chloride 95.8 L Carbon Dioxide BUN 72 H Creatinine 4.3 H Glucose POC Glucose Lactic Acid Calcium 6.7 L Phosphorus Magnesium Ferritin Direct Bilirubin AST ALT Alkaline Phosphatase Lactate Dehydrogenase Total Creatine Kinase C-Reactive Protein Total Protein Albumin Triglycerides 250 H Arterial Blood Glucose Arterial Blood Ionized Calcium Urine Creatinine Urine Chloride Vancomycin Trough Coronavirus (PCR) Crossmatch See Detail 07/02/20 07/02/20 07/02/20 04:44 06:00 11:33 WBC 14.6 H RBC 2.47 L Hgb 7.4 L Hct 21.8 L MCHC RDW Lymph % (Auto) [place] % (Auto) Lymph # (Auto) [place] # (Auto) Eos # (Auto) Seg Neutrophils % Seg Neuts % (Manual) Lymphocytes % (Manual) Monocytes % (Manual) Nucleated RBC % Seg Neutrophils # Seg Neutrophils # Man Lymphocytes # (Manual) Monocytes # (Manual) Eosinophils # (Manual) PT INR APTT D-Dimer Heparin Anti-Xa Level ABG pH 7.457 H POC ABG pCO2 POC ABG pO2 79.4 L ABG pO2 ABG HCO3 ABG Hemoglobin 8.5 L ABG Oxyhemoglobin ABG Sodium 128.4 L ABG Potassium ABG Chloride 97.0 L ABG Glucose 100 H Carboxyhemoglobin Sodium 133 L Potassium 5.2 H Chloride 93.3 L Carbon Dioxide BUN 66 H Creatinine 4.1 H Glucose 102 H POC Glucose Lactic Acid Calcium 7.2 L Phosphorus Magnesium Ferritin Direct Bilirubin AST ALT Alkaline Phosphatase Lactate Dehydrogenase Total Creatine Kinase C-Reactive Protein Total Protein Albumin Triglycerides Arterial Blood Glucose 100 H Arterial Blood Ionized Calcium 3.9 L Urine Creatinine Urine Chloride Vancomycin Trough Coronavirus (PCR) Crossmatch 07/02/20 07/03/20 07/03/20 11:33 03:54 09:15 WBC 16.6 H RBC 2.44 L Hgb 7.3 L Hct 21.4 L MCHC RDW Lymph % (Auto) [place] % (Auto) Lymph # (Auto) [place] # (Auto) Eos # (Auto) Seg Neutrophils % Seg Neuts % (Manual) Lymphocytes % (Manual) Monocytes % (Manual) Nucleated RBC % Seg Neutrophils # Seg Neutrophils # Man Lymphocytes # (Manual) Monocytes # (Manual) Eosinophils # (Manual) PT INR APTT D-Dimer Heparin Anti-Xa Level ABG pH POC ABG pCO2 POC ABG pO2 66.1 L ABG pO2 ABG HCO3 ABG Hemoglobin 8.0 L ABG Oxyhemoglobin ABG Sodium 124.6 L ABG Potassium 5.5 H ABG Chloride 96.0 L ABG Glucose 111 H Carboxyhemoglobin Sodium Potassium Chloride Carbon Dioxide BUN Creatinine Glucose POC Glucose Lactic Acid Calcium Phosphorus Magnesium Ferritin Direct Bilirubin 0.7 H AST 94 H ALT 60 H Alkaline Phosphatase Lactate Dehydrogenase Total Creatine Kinase C-Reactive Protein Total Protein 4.4 L Albumin 1.9 L Triglycerides Arterial Blood Glucose 111 H Arterial Blood Ionized Calcium 3.8 L Urine Creatinine Urine Chloride Vancomycin Trough Coronavirus (PCR) Crossmatch 07/03/20 07/03/20 07/03/20 09:15 10:10 14:50 WBC RBC Hgb Hct MCHC RDW Lymph % (Auto) [place] % (Auto) Lymph # (Auto) [place] # (Auto) Eos # (Auto) Seg Neutrophils % Seg Neuts % (Manual) Lymphocytes % (Manual) Monocytes % (Manual) Nucleated RBC % Seg Neutrophils # Seg Neutrophils # Man Lymphocytes # (Manual) Monocytes # (Manual) Eosinophils # (Manual) PT INR APTT D-Dimer 6608.00 H Heparin Anti-Xa Level ABG pH POC ABG pCO2 POC ABG pO2 ABG pO2 ABG HCO3 ABG Hemoglobin ABG Oxyhemoglobin ABG Sodium ABG Potassium ABG Chloride ABG Glucose Carboxyhemoglobin Sodium 133 L Potassium 6.2 H* Chloride 93.1 L Carbon Dioxide BUN 89 H Creatinine 5.1 H Glucose POC Glucose Lactic Acid Calcium 7.0 L Phosphorus Magnesium Ferritin Direct Bilirubin AST ALT Alkaline Phosphatase Lactate Dehydrogenase Total Creatine Kinase C-Reactive Protein Total Protein Albumin Triglycerides Arterial Blood Glucose Arterial Blood Ionized Calcium Urine Creatinine Urine Chloride Vancomycin Trough Coronavirus (PCR) Positive A Crossmatch 07/03/20 07/03/20 07/03/20 14:50 14:50 14:50 WBC RBC Hgb Hct MCHC RDW Lymph % (Auto) [place] % (Auto) Lymph # (Auto) [place] # (Auto) Eos # (Auto) Seg Neutrophils % Seg Neuts % (Manual) Lymphocytes % (Manual) Monocytes % (Manual) Nucleated RBC % Seg Neutrophils # Seg Neutrophils # Man Lymphocytes # (Manual) Monocytes # (Manual) Eosinophils # (Manual) PT INR APTT D-Dimer Heparin Anti-Xa Level ABG pH POC ABG pCO2 POC ABG pO2 ABG pO2 ABG HCO3 ABG Hemoglobin ABG Oxyhemoglobin ABG Sodium ABG Potassium ABG Chloride ABG Glucose Carboxyhemoglobin Sodium Potassium Chloride Carbon Dioxide BUN Creatinine Glucose POC Glucose Lactic Acid < 0.20 L Calcium Phosphorus Magnesium Ferritin 1171.0 H Direct Bilirubin AST ALT Alkaline Phosphatase Lactate Dehydrogenase 525 H Total Creatine Kinase C-Reactive Protein 31.50 H Total Protein Albumin Triglycerides Arterial Blood Glucose Arterial Blood Ionized Calcium Urine Creatinine Urine Chloride Vancomycin Trough Coronavirus (PCR) Crossmatch 07/03/20 07/04/20 07/04/20 16:47 05:20 05:20 WBC 11.8 H RBC 2.32 L Hgb 6.7 L Hct 20.8 L MCHC RDW Lymph % (Auto) 2.6 L [place] % (Auto) Lymph # (Auto) 0.3 L [place] # (Auto) Eos # (Auto) Seg Neutrophils % Seg Neuts % (Manual) Lymphocytes % (Manual) Monocytes % (Manual) Nucleated RBC % Seg Neutrophils # 11.0 H Seg Neutrophils # Man Lymphocytes # (Manual) Monocytes # (Manual) Eosinophils # (Manual) PT INR APTT D-Dimer Heparin Anti-Xa Level ABG pH POC ABG pCO2 POC ABG pO2 ABG pO2 ABG HCO3 ABG Hemoglobin ABG Oxyhemoglobin ABG Sodium ABG Potassium ABG Chloride ABG Glucose Carboxyhemoglobin Sodium Potassium 6.0 H Chloride 97.8 L Carbon Dioxide BUN 75 H Creatinine 4.5 H Glucose 121 H POC Glucose 107 H Lactic Acid Calcium 7.9 L Phosphorus Magnesium Ferritin Direct Bilirubin AST ALT Alkaline Phosphatase Lactate Dehydrogenase Total Creatine Kinase C-Reactive Protein Total Protein Albumin Triglycerides Arterial Blood Glucose Arterial Blood Ionized Calcium Urine Creatinine Urine Chloride Vancomycin Trough Coronavirus (PCR) Crossmatch 07/04/20 07/04/20 07/04/20 05:20 05:50 09:25 WBC RBC Hgb Hct MCHC RDW Lymph % (Auto) [place] % (Auto) Lymph # (Auto) [place] # (Auto) Eos # (Auto) Seg Neutrophils % Seg Neuts % (Manual) Lymphocytes % (Manual) Monocytes % (Manual) Nucleated RBC % Seg Neutrophils # Seg Neutrophils # Man Lymphocytes # (Manual) Monocytes # (Manual) Eosinophils # (Manual) PT INR APTT D-Dimer Heparin Anti-Xa Level ABG pH 7.324 L POC ABG pCO2 POC ABG pO2 ABG pO2 98.9 H ABG HCO3 26.8 H ABG Hemoglobin < 5.1 L ABG Oxyhemoglobin ABG Sodium ABG Potassium ABG Chloride ABG Glucose Carboxyhemoglobin Sodium Potassium Chloride Carbon Dioxide BUN Creatinine Glucose POC Glucose 114 H Lactic Acid Calcium Phosphorus Magnesium Ferritin Direct Bilirubin AST ALT Alkaline Phosphatase Lactate Dehydrogenase Total Creatine Kinase C-Reactive Protein Total Protein Albumin Triglycerides Arterial Blood Glucose Arterial Blood Ionized Calcium Urine Creatinine Urine Chloride Vancomycin Trough Coronavirus (PCR) Crossmatch See Detail 07/04/20 07/04/20 07/04/20 12:33 17:41 23:04 WBC RBC Hgb Hct MCHC RDW Lymph % (Auto) [place] % (Auto) Lymph # (Auto) [place] # (Auto) Eos # (Auto) Seg Neutrophils % Seg Neuts % (Manual) Lymphocytes % (Manual) Monocytes % (Manual) Nucleated RBC % Seg Neutrophils # Seg Neutrophils # Man Lymphocytes # (Manual) Monocytes # (Manual) Eosinophils # (Manual) PT INR APTT D-Dimer Heparin Anti-Xa Level ABG pH POC ABG pCO2 POC ABG pO2 ABG pO2 ABG HCO3 ABG Hemoglobin ABG Oxyhemoglobin ABG Sodium ABG Potassium ABG Chloride ABG Glucose Carboxyhemoglobin Sodium Potassium Chloride Carbon Dioxide BUN Creatinine Glucose POC Glucose 119 H 109 H 116 H Lactic Acid Calcium Phosphorus Magnesium Ferritin Direct Bilirubin AST ALT Alkaline Phosphatase Lactate Dehydrogenase Total Creatine Kinase C-Reactive Protein Total Protein Albumin Triglycerides Arterial Blood Glucose Arterial Blood Ionized Calcium Urine Creatinine Urine Chloride Vancomycin Trough Coronavirus (PCR) Crossmatch 07/05/20 07/05/20 07/05/20 04:30 08:21 08:21 WBC RBC 2.77 L Hgb 7.9 L Hct 23.9 L MCHC RDW 16.7 H Lymph % (Auto) 7.5 L [place] % (Auto) Lymph # (Auto) 0.7 L [place] # (Auto) Eos # (Auto) Seg Neutrophils % 85.8 H Seg Neuts % (Manual) Lymphocytes % (Manual) Monocytes % (Manual) Nucleated RBC % Seg Neutrophils # 7.8 H Seg Neutrophils # Man Lymphocytes # (Manual) Monocytes # (Manual) Eosinophils # (Manual) PT INR APTT D-Dimer Heparin Anti-Xa Level ABG pH 7.295 L POC ABG pCO2 POC ABG pO2 ABG pO2 151.9 H ABG HCO3 26.8 H ABG Hemoglobin 7.3 L ABG Oxyhemoglobin ABG Sodium ABG Potassium ABG Chloride ABG Glucose Carboxyhemoglobin Sodium Potassium Chloride Carbon Dioxide BUN Creatinine Glucose POC Glucose Lactic Acid Calcium Phosphorus Magnesium Ferritin Direct Bilirubin AST ALT Alkaline Phosphatase Lactate Dehydrogenase Total Creatine Kinase C-Reactive Protein Total Protein Albumin Triglycerides 258 H Arterial Blood Glucose Arterial Blood Ionized Calcium Urine Creatinine Urine Chloride Vancomycin Trough Coronavirus (PCR) Crossmatch 07/05/20 07/05/20 07/06/20 08:21 12:12 04:29 WBC RBC Hgb Hct MCHC RDW Lymph % (Auto) [place] % (Auto) Lymph # (Auto) [place] # (Auto) Eos # (Auto) Seg Neutrophils % Seg Neuts % (Manual) Lymphocytes % (Manual) Monocytes % (Manual) Nucleated RBC % Seg Neutrophils # Seg Neutrophils # Man Lymphocytes # (Manual) Monocytes # (Manual) Eosinophils # (Manual) PT INR APTT D-Dimer Heparin Anti-Xa Level ABG pH 7.291 L POC ABG pCO2 51.3 H POC ABG pO2 ABG pO2 ABG HCO3 ABG Hemoglobin 8.5 L ABG Oxyhemoglobin ABG Sodium 129.6 L ABG Potassium 4.8 H ABG Chloride 96.0 L ABG Glucose Carboxyhemoglobin Sodium 133 L Potassium 5.6 H Chloride 94.4 L Carbon Dioxide BUN 80 H Creatinine 4.2 H Glucose 114 H POC Glucose 106 H Lactic Acid Calcium 7.6 L Phosphorus Magnesium Ferritin Direct Bilirubin 0.5 H AST 75 H ALT 86 H Alkaline Phosphatase Lactate Dehydrogenase Total Creatine Kinase C-Reactive Protein Total Protein 5.6 L D Albumin 1.9 L Triglycerides Arterial Blood Glucose Arterial Blood Ionized Calcium 4.2 L Urine Creatinine Urine Chloride Vancomycin Trough Coronavirus (PCR) Crossmatch 07/06/20 07/06/20 07/06/20 11:35 11:35 12:16 WBC RBC 2.54 L Hgb 7.5 L Hct 21.5 L MCHC 35 H RDW 15.7 H Lymph % (Auto) [place] % (Auto) Lymph # (Auto) [place] # (Auto) Eos # (Auto) Seg Neutrophils % Seg Neuts % (Manual) Lymphocytes % (Manual) Monocytes % (Manual) Nucleated RBC % Seg Neutrophils # Seg Neutrophils # Man Lymphocytes # (Manual) Monocytes # (Manual) Eosinophils # (Manual) PT INR APTT D-Dimer Heparin Anti-Xa Level ABG pH POC ABG pCO2 POC ABG pO2 ABG pO2 ABG HCO3 ABG Hemoglobin ABG Oxyhemoglobin ABG Sodium ABG Potassium ABG Chloride ABG Glucose Carboxyhemoglobin Sodium 130 L Potassium Chloride 92.2 L Carbon Dioxide 19 L D BUN 107 H Creatinine 5.1 H Glucose 106 H POC Glucose 106 H Lactic Acid Calcium 7.5 L Phosphorus Magnesium Ferritin Direct Bilirubin AST ALT Alkaline Phosphatase Lactate Dehydrogenase Total Creatine Kinase C-Reactive Protein Total Protein Albumin Triglycerides Arterial Blood Glucose Arterial Blood Ionized Calcium Urine Creatinine Urine Chloride Vancomycin Trough Coronavirus (PCR) Crossmatch 07/06/20 07/06/20 07/06/20 17:01 21:56 23:41 WBC RBC Hgb Hct MCHC RDW Lymph % (Auto) [place] % (Auto) Lymph # (Auto) [place] # (Auto) Eos # (Auto) Seg Neutrophils % Seg Neuts % (Manual) Lymphocytes % (Manual) Monocytes % (Manual) Nucleated RBC % Seg Neutrophils # Seg Neutrophils # Man Lymphocytes # (Manual) Monocytes # (Manual) Eosinophils # (Manual) PT INR APTT D-Dimer Heparin Anti-Xa Level ABG pH POC ABG pCO2 POC ABG pO2 ABG pO2 ABG HCO3 ABG Hemoglobin ABG Oxyhemoglobin ABG Sodium ABG Potassium ABG Chloride ABG Glucose Carboxyhemoglobin Sodium 135 L Potassium 5.1 H Chloride Carbon Dioxide BUN 73 H Creatinine 4.0 H Glucose 112 H POC Glucose 109 H 111 H Lactic Acid Calcium 7.8 L Phosphorus Magnesium Ferritin Direct Bilirubin AST ALT Alkaline Phosphatase Lactate Dehydrogenase Total Creatine Kinase C-Reactive Protein Total Protein Albumin Triglycerides Arterial Blood Glucose Arterial Blood Ionized Calcium Urine Creatinine Urine Chloride Vancomycin Trough Coronavirus (PCR) Crossmatch 07/07/20 07/07/20 07/07/20 04:18 05:04 05:29 WBC RBC 2.46 L Hgb 7.6 L Hct 21.5 L MCHC 35 H RDW 16.5 H Lymph % (Auto) [place] % (Auto) Lymph # (Auto) [place] # (Auto) Eos # (Auto) Seg Neutrophils % Seg Neuts % (Manual) 82.0 H Lymphocytes % (Manual) Monocytes % (Manual) Nucleated RBC % 1.0 H Seg Neutrophils # Seg Neutrophils # Man Lymphocytes # (Manual) 1.1 L Monocytes # (Manual) Eosinophils # (Manual) PT INR APTT D-Dimer Heparin Anti-Xa Level ABG pH POC ABG pCO2 POC ABG pO2 79.6 L ABG pO2 ABG HCO3 ABG Hemoglobin 8.2 L ABG Oxyhemoglobin ABG Sodium 133.3 L ABG Potassium 4.7 H ABG Chloride ABG Glucose 135 H Carboxyhemoglobin Sodium Potassium Chloride Carbon Dioxide BUN Creatinine Glucose POC Glucose 112 H Lactic Acid Calcium Phosphorus Magnesium Ferritin Direct Bilirubin AST ALT Alkaline Phosphatase Lactate Dehydrogenase Total Creatine Kinase C-Reactive Protein Total Protein Albumin Triglycerides Arterial Blood Glucose 135 H Arterial Blood Ionized Calcium 4.5 L Urine Creatinine Urine Chloride Vancomycin Trough Coronavirus (PCR) Crossmatch 07/07/20 07/07/20 07/07/20 10:17 12:18 17:43 WBC RBC Hgb Hct MCHC RDW Lymph % (Auto) [place] % (Auto) Lymph # (Auto) [place] # (Auto) Eos # (Auto) Seg Neutrophils % Seg Neuts % (Manual) Lymphocytes % (Manual) Monocytes % (Manual) Nucleated RBC % Seg Neutrophils # Seg Neutrophils # Man Lymphocytes # (Manual) Monocytes # (Manual) Eosinophils # (Manual) PT INR APTT D-Dimer Heparin Anti-Xa Level ABG pH POC ABG pCO2 POC ABG pO2 ABG pO2 ABG HCO3 ABG Hemoglobin ABG Oxyhemoglobin ABG Sodium ABG Potassium ABG Chloride ABG Glucose Carboxyhemoglobin Sodium 136 L Potassium Chloride 96.8 L Carbon Dioxide BUN 82 H Creatinine 4.3 H Glucose 129 H POC Glucose 108 H 116 H Lactic Acid Calcium 7.8 L Phosphorus Magnesium Ferritin Direct Bilirubin AST ALT Alkaline Phosphatase Lactate Dehydrogenase Total Creatine Kinase C-Reactive Protein Total Protein Albumin Triglycerides Arterial Blood Glucose Arterial Blood Ionized Calcium Urine Creatinine Urine Chloride Vancomycin Trough Coronavirus (PCR) Crossmatch 07/07/20 07/08/20 07/08/20 23:31 04:00 04:00 WBC RBC 2.52 L Hgb 7.3 L Hct 22.2 L MCHC RDW 16.6 H Lymph % (Auto) 11.5 L [place] % (Auto) Lymph # (Auto) [place] # (Auto) Eos # (Auto) Seg Neutrophils % 78.2 H Seg Neuts % (Manual) Lymphocytes % (Manual) Monocytes % (Manual) Nucleated RBC % Seg Neutrophils # 8.0 H Seg Neutrophils # Man Lymphocytes # (Manual) Monocytes # (Manual) Eosinophils # (Manual) PT INR APTT D-Dimer Heparin Anti-Xa Level ABG pH POC ABG pCO2 POC ABG pO2 ABG pO2 ABG HCO3 ABG Hemoglobin ABG Oxyhemoglobin ABG Sodium ABG Potassium ABG Chloride ABG Glucose Carboxyhemoglobin Sodium 132 L Potassium 5.4 H Chloride 92.5 L Carbon Dioxide BUN 98 H Creatinine 4.9 H Glucose 105 H POC Glucose 117 H Lactic Acid Calcium 7.9 L Phosphorus Magnesium Ferritin Direct Bilirubin AST ALT Alkaline Phosphatase Lactate Dehydrogenase Total Creatine Kinase C-Reactive Protein Total Protein Albumin Triglycerides Arterial Blood Glucose Arterial Blood Ionized Calcium Urine Creatinine Urine Chloride Vancomycin Trough Coronavirus (PCR) Crossmatch 07/08/20 07/08/20 07/08/20 04:09 11:34 17:05 WBC RBC Hgb Hct MCHC RDW Lymph % (Auto) [place] % (Auto) Lymph # (Auto) [place] # (Auto) Eos # (Auto) Seg Neutrophils % Seg Neuts % (Manual) Lymphocytes % (Manual) Monocytes % (Manual) Nucleated RBC % Seg Neutrophils # Seg Neutrophils # Man Lymphocytes # (Manual) Monocytes # (Manual) Eosinophils # (Manual) PT INR APTT D-Dimer Heparin Anti-Xa Level ABG pH 7.220 L POC ABG pCO2 60.5 H POC ABG pO2 ABG pO2 ABG HCO3 ABG Hemoglobin 8.2 L ABG Oxyhemoglobin ABG Sodium 131.3 L ABG Potassium 5.2 H ABG Chloride ABG Glucose 103 H Carboxyhemoglobin Sodium Potassium Chloride Carbon Dioxide BUN Creatinine Glucose POC Glucose 140 H 125 H Lactic Acid Calcium Phosphorus Magnesium Ferritin Direct Bilirubin AST ALT Alkaline Phosphatase Lactate Dehydrogenase Total Creatine Kinase C-Reactive Protein Total Protein Albumin Triglycerides Arterial Blood Glucose 103 H Arterial Blood Ionized Calcium 4.3 L Urine Creatinine Urine Chloride Vancomycin Trough Coronavirus (PCR) Crossmatch 07/08/20 07/08/20 07/09/20 20:21 23:43 05:10 WBC RBC Hgb Hct MCHC RDW Lymph % (Auto) [place] % (Auto) Lymph # (Auto) [place] # (Auto) Eos # (Auto) Seg Neutrophils % Seg Neuts % (Manual) Lymphocytes % (Manual) Monocytes % (Manual) Nucleated RBC % Seg Neutrophils # Seg Neutrophils # Man Lymphocytes # (Manual) Monocytes # (Manual) Eosinophils # (Manual) PT INR APTT D-Dimer Heparin Anti-Xa Level ABG pH 7.20 L POC ABG pCO2 69.8 H POC ABG pO2 138.9 H 76.1 L ABG pO2 ABG HCO3 ABG Hemoglobin 11.9 L 8.4 L ABG Oxyhemoglobin ABG Sodium 133.1 L 131.2 L ABG Potassium 5.0 H 4.7 H ABG Chloride ABG Glucose 120 H 102 H Carboxyhemoglobin Sodium Potassium Chloride Carbon Dioxide BUN Creatinine Glucose POC Glucose 118 H Lactic Acid Calcium Phosphorus Magnesium Ferritin Direct Bilirubin AST ALT Alkaline Phosphatase Lactate Dehydrogenase Total Creatine Kinase C-Reactive Protein Total Protein Albumin Triglycerides Arterial Blood Glucose 120 H 102 H Arterial Blood Ionized Calcium 4.4 L 4.3 L Urine Creatinine Urine Chloride Vancomycin Trough Coronavirus (PCR) Crossmatch 07/09/20 07/09/20 07/09/20 11:51 17:04 21:00 WBC RBC Hgb Hct MCHC RDW Lymph % (Auto) [place] % (Auto) Lymph # (Auto) [place] # (Auto) Eos # (Auto) Seg Neutrophils % Seg Neuts % (Manual) Lymphocytes % (Manual) Monocytes % (Manual) Nucleated RBC % Seg Neutrophils # Seg Neutrophils # Man Lymphocytes # (Manual) Monocytes # (Manual) Eosinophils # (Manual) PT INR APTT D-Dimer Heparin Anti-Xa Level ABG pH POC ABG pCO2 POC ABG pO2 114.2 H ABG pO2 ABG HCO3 ABG Hemoglobin 7.8 L ABG Oxyhemoglobin ABG Sodium 132.3 L ABG Potassium 4.6 H ABG Chloride ABG Glucose Carboxyhemoglobin Sodium Potassium Chloride Carbon Dioxide BUN Creatinine Glucose POC Glucose 113 H 111 H Lactic Acid Calcium Phosphorus Magnesium Ferritin Direct Bilirubin AST ALT Alkaline Phosphatase Lactate Dehydrogenase Total Creatine Kinase C-Reactive Protein Total Protein Albumin Triglycerides Arterial Blood Glucose Arterial Blood Ionized Calcium 4.4 L Urine Creatinine Urine Chloride Vancomycin Trough Coronavirus (PCR) Crossmatch 07/10/20 07/10/20 07/10/20 03:49 03:55 03:55 WBC 18.1 H RBC 2.37 L Hgb 6.8 L Hct 20.7 L MCHC RDW 16.9 H Lymph % (Auto) [place] % (Auto) Lymph # (Auto) [place] # (Auto) Eos # (Auto) Seg Neutrophils % Seg Neuts % (Manual) 79.0 H Lymphocytes % (Manual) 10.0 L Monocytes % (Manual) Nucleated RBC % 1.0 H Seg Neutrophils # Seg Neutrophils # Man 14.3 H Lymphocytes # (Manual) Monocytes # (Manual) Eosinophils # (Manual) 0.7 H PT INR APTT D-Dimer Heparin Anti-Xa Level ABG pH POC ABG pCO2 POC ABG pO2 ABG pO2 ABG HCO3 ABG Hemoglobin 7.7 L ABG Oxyhemoglobin ABG Sodium 130.3 L ABG Potassium 4.6 H ABG Chloride ABG Glucose Carboxyhemoglobin Sodium 136 L Potassium Chloride 96.0 L Carbon Dioxide BUN 76 H Creatinine 3.6 H Glucose POC Glucose Lactic Acid Calcium 7.4 L Phosphorus Magnesium Ferritin Direct Bilirubin AST ALT Alkaline Phosphatase Lactate Dehydrogenase Total Creatine Kinase C-Reactive Protein Total Protein Albumin Triglycerides Arterial Blood Glucose Arterial Blood Ionized Calcium 4.2 L Urine Creatinine Urine Chloride Vancomycin Trough Coronavirus (PCR) Crossmatch 07/10/20 07/11/20 07/11/20 13:24 04:08 06:52 WBC 26.0 H RBC 2.91 L Hgb 8.2 L Hct 24.8 L MCHC RDW 17.2 H Lymph % (Auto) [place] % (Auto) Lymph # (Auto) [place] # (Auto) Eos # (Auto) Seg Neutrophils % Seg Neuts % (Manual) Lymphocytes % (Manual) 1.0 L Monocytes % (Manual) 11.0 H Nucleated RBC % Seg Neutrophils # Seg Neutrophils # Man 16.9 H Lymphocytes # (Manual) 0.3 L Monocytes # (Manual) 2.9 H Eosinophils # (Manual) 1.0 H PT INR APTT D-Dimer Heparin Anti-Xa Level ABG pH POC ABG pCO2 POC ABG pO2 ABG pO2 ABG HCO3 ABG Hemoglobin 8.5 L ABG Oxyhemoglobin ABG Sodium 130.6 L ABG Potassium 4.9 H ABG Chloride ABG Glucose 105 H Carboxyhemoglobin Sodium Potassium Chloride Carbon Dioxide BUN Creatinine Glucose POC Glucose Lactic Acid Calcium Phosphorus Magnesium Ferritin Direct Bilirubin AST ALT Alkaline Phosphatase Lactate Dehydrogenase Total Creatine Kinase C-Reactive Protein Total Protein Albumin Triglycerides Arterial Blood Glucose 105 H Arterial Blood Ionized Calcium 4.1 L Urine Creatinine Urine Chloride Vancomycin Trough Coronavirus (PCR) Crossmatch See Detail 07/11/20 07/11/20 07/11/20 06:52 08:48 11:39 WBC RBC Hgb Hct MCHC RDW Lymph % (Auto) [place] % (Auto) Lymph # (Auto) [place] # (Auto) Eos # (Auto) Seg Neutrophils % Seg Neuts % (Manual) Lymphocytes % (Manual) Monocytes % (Manual) Nucleated RBC % Seg Neutrophils # Seg Neutrophils # Man Lymphocytes # (Manual) Monocytes # (Manual) Eosinophils # (Manual) PT INR APTT D-Dimer Heparin Anti-Xa Level ABG pH POC ABG pCO2 POC ABG pO2 ABG pO2 ABG HCO3 ABG Hemoglobin ABG Oxyhemoglobin ABG Sodium ABG Potassium ABG Chloride ABG Glucose Carboxyhemoglobin Sodium 133 L 134 L Potassium 5.3 H Chloride 93.5 L 94.8 L Carbon Dioxide BUN 101 H 99 H Creatinine 4.5 H 4.6 H Glucose 102 H POC Glucose 116 H Lactic Acid Calcium 7.8 L 7.6 L Phosphorus Magnesium Ferritin Direct Bilirubin AST ALT Alkaline Phosphatase Lactate Dehydrogenase Total Creatine Kinase C-Reactive Protein Total Protein Albumin Triglycerides Arterial Blood Glucose Arterial Blood Ionized Calcium Urine Creatinine Urine Chloride Vancomycin Trough Coronavirus (PCR) Crossmatch 07/11/20 07/12/20 07/12/20 17:23 00:04 03:20 WBC RBC Hgb Hct MCHC RDW Lymph % (Auto) [place] % (Auto) Lymph # (Auto) [place] # (Auto) Eos # (Auto) Seg Neutrophils % Seg Neuts % (Manual) Lymphocytes % (Manual) Monocytes % (Manual) Nucleated RBC % Seg Neutrophils # Seg Neutrophils # Man Lymphocytes # (Manual) Monocytes # (Manual) Eosinophils # (Manual) PT INR APTT D-Dimer Heparin Anti-Xa Level ABG pH POC ABG pCO2 49.1 H POC ABG pO2 130.3 H ABG pO2 ABG HCO3 ABG Hemoglobin 8.7 L ABG Oxyhemoglobin ABG Sodium 135.2 L ABG Potassium 4.7 H ABG Chloride ABG Glucose 128 H Carboxyhemoglobin Sodium Potassium Chloride Carbon Dioxide BUN Creatinine Glucose POC Glucose 142 H 113 H Lactic Acid Calcium Phosphorus Magnesium Ferritin Direct Bilirubin AST ALT Alkaline Phosphatase Lactate Dehydrogenase Total Creatine Kinase C-Reactive Protein Total Protein Albumin Triglycerides Arterial Blood Glucose 128 H Arterial Blood Ionized Calcium 4.4 L Urine Creatinine Urine Chloride Vancomycin Trough Coronavirus (PCR) Crossmatch 07/12/20 07/12/20 07/12/20 03:40 03:40 04:00 WBC 24.3 H RBC 2.83 L Hgb 8.0 L Hct 24.9 L MCHC RDW 17.7 H Lymph % (Auto) 5.6 L [place] % (Auto) 7.4 H Lymph # (Auto) [place] # (Auto) 1.8 H Eos # (Auto) 0.7 H Seg Neutrophils % 83.9 H Seg Neuts % (Manual) Lymphocytes % (Manual) Monocytes % (Manual) Nucleated RBC % Seg Neutrophils # 20.4 H Seg Neutrophils # Man Lymphocytes # (Manual) Monocytes # (Manual) Eosinophils # (Manual) PT INR APTT D-Dimer Heparin Anti-Xa Level ABG pH POC ABG pCO2 POC ABG pO2 ABG pO2 ABG HCO3 ABG Hemoglobin ABG Oxyhemoglobin ABG Sodium ABG Potassium ABG Chloride ABG Glucose Carboxyhemoglobin Sodium 134 L Potassium Chloride 95.5 L Carbon Dioxide BUN 79 H Creatinine 3.7 H Glucose 127 H POC Glucose Lactic Acid Calcium 7.8 L Phosphorus Magnesium Ferritin Direct Bilirubin AST ALT Alkaline Phosphatase Lactate Dehydrogenase Total Creatine Kinase C-Reactive Protein Total Protein Albumin Triglycerides 246 H Arterial Blood Glucose Arterial Blood Ionized Calcium Urine Creatinine Urine Chloride Vancomycin Trough Coronavirus (PCR) Crossmatch 07/12/20 07/12/20 07/12/20 05:48 11:50 17:29 WBC RBC Hgb Hct MCHC RDW Lymph % (Auto) [place] % (Auto) Lymph # (Auto) [place] # (Auto) Eos # (Auto) Seg Neutrophils % Seg Neuts % (Manual) Lymphocytes % (Manual) Monocytes % (Manual) Nucleated RBC % Seg Neutrophils # Seg Neutrophils # Man Lymphocytes # (Manual) Monocytes # (Manual) Eosinophils # (Manual) PT INR APTT D-Dimer Heparin Anti-Xa Level ABG pH POC ABG pCO2 POC ABG pO2 ABG pO2 ABG HCO3 ABG Hemoglobin ABG Oxyhemoglobin ABG Sodium ABG Potassium ABG Chloride ABG Glucose Carboxyhemoglobin Sodium Potassium Chloride Carbon Dioxide BUN Creatinine Glucose POC Glucose 136 H 113 H 110 H Lactic Acid Calcium Phosphorus Magnesium Ferritin Direct Bilirubin AST ALT Alkaline Phosphatase Lactate Dehydrogenase Total Creatine Kinase C-Reactive Protein Total Protein Albumin Triglycerides Arterial Blood Glucose Arterial Blood Ionized Calcium Urine Creatinine Urine Chloride Vancomycin Trough Coronavirus (PCR) Crossmatch 07/12/20 07/13/20 07/13/20 23:43 03:11 06:59 WBC RBC Hgb Hct MCHC RDW Lymph % (Auto) [place] % (Auto) Lymph # (Auto) [place] # (Auto) Eos # (Auto) Seg Neutrophils % Seg Neuts % (Manual) Lymphocytes % (Manual) Monocytes % (Manual) Nucleated RBC % Seg Neutrophils # Seg Neutrophils # Man Lymphocytes # (Manual) Monocytes # (Manual) Eosinophils # (Manual) PT INR APTT D-Dimer Heparin Anti-Xa Level ABG pH POC ABG pCO2 49.0 H POC ABG pO2 69.6 L ABG pO2 ABG HCO3 ABG Hemoglobin 8.5 L ABG Oxyhemoglobin 90.5 L ABG Sodium 133.6 L ABG Potassium 5.1 H ABG Chloride ABG Glucose 104 H Carboxyhemoglobin Sodium 133 L Potassium 5.7 H Chloride 96.3 L Carbon Dioxide 20 L D BUN 102 H Creatinine 4.4 H Glucose 101 H POC Glucose 120 H Lactic Acid Calcium 7.9 L Phosphorus Magnesium Ferritin Direct Bilirubin AST 61 H ALT 85 H Alkaline Phosphatase 144 H Lactate Dehydrogenase Total Creatine Kinase C-Reactive Protein Total Protein 5.4 L Albumin 2.0 L Triglycerides Arterial Blood Glucose 104 H Arterial Blood Ionized Calcium 4.3 L Urine Creatinine Urine Chloride Vancomycin Trough Coronavirus (PCR) Crossmatch 07/13/20 08:48 WBC 27.5 H RBC 3.03 L Hgb 8.7 L Hct 27.0 L MCHC RDW 18.0 H Lymph % (Auto) [place] % (Auto) Lymph # (Auto) [place] # (Auto) Eos # (Auto) Seg Neutrophils % Seg Neuts % (Manual) Lymphocytes % (Manual) Monocytes % (Manual) Nucleated RBC % Seg Neutrophils # Seg Neutrophils # Man Lymphocytes # (Manual) Monocytes # (Manual) Eosinophils # (Manual) PT INR APTT D-Dimer Heparin Anti-Xa Level ABG pH POC ABG pCO2 POC ABG pO2 ABG pO2 ABG HCO3 ABG Hemoglobin ABG Oxyhemoglobin ABG Sodium ABG Potassium ABG Chloride ABG Glucose Carboxyhemoglobin Sodium Potassium Chloride Carbon Dioxide BUN Creatinine Glucose POC Glucose Lactic Acid Calcium Phosphorus Magnesium Ferritin Direct Bilirubin AST ALT Alkaline Phosphatase Lactate Dehydrogenase Total Creatine Kinase C-Reactive Protein Total Protein Albumin Triglycerides Arterial Blood Glucose Arterial Blood Ionized Calcium Urine Creatinine Urine Chloride Vancomycin Trough Coronavirus (PCR) Crossmatch Chest x-ray: pending Allied health notes reviewed: nursing
--- NOTE | 2020-07-13 14:48 | Progress Note ---
<ROSA MARIAKatieDARYLRafy - Last Filed: 07/13/20 14:43> Assessment and Plan Assessment and plan: -Vasopressor support (CCM and ID consulted, appreciate recommendations) -S/p dexamethasone and remdesivir therapy, contact/droplet isolation, remains on ventilation (wean as tolerated), vitamin C/vitamin D/zinc, anticoagulation per protocol, trend inflammatory markers -CT head with no acute process, supportive care -Wean mechanical ventilation as tolerated, VAP bundle -HD per nephrology -Amiodarone p.o. (remains in A. fib/a flutter), cardiology aware -Transfuse for globin less than 7, s/p 4 units PRBC during stay DVT prophylaxis: GI prophylaxis, heparin subcu, SCDs to bilateral LE while in bed Disposition: ICU ?placement ?trach/peg ?Ltach History Interval history: 59-year-old white male who was admitted for pneumonia secondary to Covid with associated respiratory failure and sepsis. Severe septic shock COVID-19 pneumonia Acute metabolic encephalopathy Acute hypoxic respiratory failure Acute kidney injury likely secondary to acute tubular necrosis which progressed to hemodialysis SVT/proximal atrial fibrillation Elevated LFTs Anemia likely due to severe sepsis had declining renal function Morbid obesity 06/18: Patient got intubated overnight. Patient was placed on BiPAP to maintain oxygenation with 100% FiO2 but apparently he found to take off his argueta which made his oxygen saturation go down at 60s/50s and patient was found altered ment al status. Code met was called immediately. Patient was transferred to ICU and intubated, patient currently on 2 pressors, intubated with 100% FiO2, renal function noted to be decline, nephrology consulted. Discussed with [place] physician Dr. Thompson and requested call back on Saturday. Poor prognosis, continue to monitor with aggressive supportive care. Also called family/ to update clinical status. 06/19: Repeat COVID test was positive. cont cefepime, remdesivir per ID recommendation. follow inflammatory markers, cbc, bmp. placed on heparin drip for atrial fib 06/20: Remains on mechanical ventilation, on 2 pressors, on heparin drip. discussed with and daughter by phone. Renal function declining. cont supportive care for now. 06/21: Renal function cont to decline, urine outpt sig decreased. started on lasix 80mg BID, plan to follow urine output, if no improvement patient need to start on HD. called and daughter today. updated all clinical details 06/22: Renal function continues to decline with uremia and hyperkalemia. Will need to proceed with hemodialysis. Nephrology discussed with the family and they agrees for the hemodialysis. Patient remains on pressor support and mechanical ventilation. Vas-Cath placed today by vascular started on hemodialysis today. 06/23: 2nd round of HD today, remains on 2 pressors. per RN not tolerating TF, has no record of BM since 06/18. start on stool softner. follow cbc/bmp. updated family( and daughter) by phone -all question answered to best of my knowledge and to their satisfaction. Patient remains critically ill with a very poor prognosis. 06/24: Continue supportive care, Very poor prognosis, Insulator Helper to discuss w ith family in am due to the futility of the condition. 06/25/2020 continue supportive care very poor prognosis 06/26/2020 continue supportive care very poor prognosis family updated 06/27/2020 continue supportive care and weaning if possible 06/28/2020 continue supportive care, talk with at length 06/29: Resumed care. K level persistently high. give one dose of bicarbonate, plan for HD today, recheck k after HD. updated family by phone 06/30: updated family by phone. Patient remains on amiodarone drip and vasopressin. Getting HD at the bedside. Tolerating tube feeding at low rate. 07/01: Hb dropped to 6.4 today, transfuse one unit PRBC. patient is off pressor today, remains on amioderone. cont to monitor 07/02: Called patient and updated clinical details. Patient remains critically ill, still intubated. Patient's oxygen requirement and PEEP pressure has went down. Continue weaning protocol per critical care recommendation. Patient remains off pressor. Continue to wean off from amiodarone and plan to rate control with p.o. medications. Tolerating tube feeding. H&H stable today. Order for stool for occult blood. Monitor H&H and BMP. Continue to follow clinically 07/03: discussed with [place] physician today. Patient back on 100percent Fio2 since last night. planned for emergent Hd today. spiked fever, start IV Cefepime + Vancomycin renally dosed. Restarted Levophed today, remains on amiodarone drip. Patient family was updated by critical care attending today. 07/04: Patient has hemodialysis yesterday and also plan for today for volume overload and pulmonary edema. Patient currently on 80% FiO2. Remains on Levophed and amiodarone. Hemoglobin dropped to 6.7 without any evidence of active bleeding. LFTs remain stable. Repeat Covid test on 06/30 and 07/03 remains positive. Will transfuse another unit of packed RBC today. Called family for update -explained family that patient is critically ill with very poor prognosis. 07/05: Patient on 70% FiO2 with PEEP of 14. h/h stable after transfusion. hyperkalemia improved, cont sodiumbicarbonate pill with TF. follow BMP. off levophed today, remains on amioderone. poor prognosis. 07/06: Patient remains on amiodarone drip, maintaining BP without any pressor. FiO2 requirement trended down to 60% with PEEP of 14. Continue to follow clinically. Plan to wean off amiodarone drip as tolerated. Wean off from sedation as tolerated. Updated family. Patient remains critically ill with poor prognosis. 07/07: Called family for update. Off amiodarone drip today, patient also off pre ssor. FiO2 requirement trended up again to 80-100%. Continue to provide supportive care, monitor clinically. Having difficulty to wean off from the vent support. Patient is persistently positive for COVID-19 and COVID-19 antibody is nonreactive. Patient remains critically ill with very poor pro gnosis. 07/08: Continue supportive care. 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 Prognosis remains guarded to poor. Management per team. Critical care time 35-minute 07/09/20 patient is tachycardic. Heart rate 121. Hemoglobin 7.3. Patient is having hemodialysis. Continue supportive care. Patient having difficulty to wean off from the vent support. Prognosis is poor. Nephrology and cardiology follow-up. Recheck CBC BMP in the morning. Continue current management. 07/10/20 patient seen and examined, remains on full ventilator patient is doing better. Patient is off pressor. heart rate 123. Hemoglobin 6.8 and hematocrit 20.7. WBC is 18.1. Continue supportive care. Patient having difficulty to wean off from the vent support. We will started on Zosyn 4.5 g IV every 8 hours. Will transfuse 1 unit of packed red blood cell. Prognosis is poor. Nephrology and cardiology follow up. Recheck CBC BMP in the morning 07/11: remains off vasopressor, h/h appropriately responded to 1 unit PRBC. HD today. Remain on MV with fiO2 at 70%. peep 10. No acute events reported overnight. 07/12: Patient remains in atrial fibrillation on the site monitor, vasopressor support with Levophed and vasopressin, sedated with fentanyl and propofol. Vent settings: CMV 500/25/14/0.60. Patient remains hypercarbic on ABG 07/13: Patient remains on vasopressin, fentanyl and propofol with rectal tube in place. This morning some examination patient was on assist control 25/500/1 4/0.60. Patient received hemodialysis today. No acute events reported overnight. Hospitalist Physical - Constitutional Vitals: Temp Pulse Resp BP Pulse Ox 99.5 F 123 H 15 109/58 98 07/13/20 13:44 07/13/20 14:15 07/13/20 14:15 07/13/20 14:15 07/13/20 14:15 General appearance: Present: no acute distress, well-nourished - EENT ENT: poor dentition - Neck Neck: Present: supple - Respiratory Respiratory effort: normal Respiratory: bilateral: rales - Cardiovascular Rhythm: irregularly irregular Heart Sounds: Present: S1 & S2. Absent: systolic murmur, diastolic murmur - Extremities Extremities: no ischemia, pulses intact, pulses symmetrical, normal temperature, normal color Extremity abnormal: edema Peripheral Pulses: within normal limits - Abdominal General gastrointestinal: soft, non-tender, non-distended, normal bowel sounds - Integumentary Integumentary: Present: warm, dry - Psychiatric Psychiatric: other (sedated) - Neurologic Neurologic: CNII-XII intact - Allied Health Allied health notes reviewed: nursing, RT, social work, case management HEART Score - HEART Score Troponin: Troponin T < 0.010 ng/mL (0.00-0.029) 06/17/20 12:33 Results - Labs CBC & Chem 7: 07/13/20 08:48 07/13/20 06:59 Labs: Laboratory Last Values WBC 27.5 K/mm3 (4.5-11.0) H 07/13/20 08:48 RBC 3.03 M/mm3 (3.65-5.03) L 07/13/20 08:48 Hgb 8.7 gm/dl (11.8-15.2) L 07/13/20 08:48 Hct 27.0 % (35.5-45.6) L 07/13/20 08:48 MCV 89 fl (84-94) 07/13/20 08:48 MCH 29 pg (28-32) 07/13/20 08:48 MCHC 32 % (32-34) 07/13/20 08:48 RDW 18.0 % (13.2-15.2) H 07/13/20 08:48 Plt Count 364 K/mm3 (140-440) 07/13/20 08:48 Lymph % (Auto) 5.6 % (13.4-35.0) L 07/12/20 03:40 Rich % (Auto) 7.4 % (0.0-7.3) H 07/12/20 03:40 Eos % (Auto) 2.8 % (0.0-4.3) 07/12/20 03:40 Baso % (Auto) 0.3 % (0.0-1.8) 07/12/20 03:40 Lymph # (Auto) 1.4 K/mm3 (1.2-5.4) 07/12/20 03:40 Rich # (Auto) 1.8 K/mm3 (0.0-0.8) H 07/12/20 03:40 Eos # (Auto) 0.7 K/mm3 (0.0-0.4) H 07/12/20 03:40 Baso # (Auto) 0.1 K/mm3 (0.0-0.1) 07/12/20 03:40 Add Manual Diff Complete 07/11/20 06:52 Total Counted 100 07/11/20 06:52 Seg Neutrophils % 83.9 % (40.0-70.0) H 07/12/20 03:40 Seg Neuts % (Manual) 65.0 % (40.0-70.0) 07/11/20 06:52 Band Neutrophils % 7.0 % 07/11/20 06:52 Lymphocytes % (Manual) 1.0 % (13.4-35.0) L 07/11/20 06:52 Reactive Lymphs % (Man) 1.0 % 06/23/20 04:00 Monocytes % (Manual) 11.0 % (0.0-7.3) H 07/11/20 06:52 Eosinophils % (Manual) 4.0 % (0.0-4.3) 07/11/20 06:52 Metamyelocytes % 12.0 % 07/11/20 06:52 Myelocytes % 2.0 % 07/10/20 03:55 Nucleated RBC % Not Reportable 07/11/20 06:52 Seg Neutrophils # 20.4 K/mm3 (1.8-7.7) H 07/12/20 03:40 Seg Neutrophils # Man 16.9 K/mm3 (1.8-7.7) H 07/11/20 06:52 Band Neutrophils # 1.8 K/mm3 07/11/20 06:52 Lymphocytes # (Manual) 0.3 K/mm3 (1.2-5.4) L 07/11/20 06:52 Abs React Lymphs (Man) 0.0 K/mm3 07/11/20 06:52 Monocytes # (Manual) 2.9 K/mm3 (0.0-0.8) H 07/11/20 06:52 Eosinophils # (Manual) 1.0 K/mm3 (0.0-0.4) H 07/11/20 06:52 Basophils # (Manual) 0.0 K/mm3 (0.0-0.1) 07/11/20 06:52 Metamyelocytes # 3.1 K/mm3 07/11/20 06:52 Myelocytes # 0.0 K/mm3 07/11/20 06:52 Promyelocytes # 0.0 K/mm3 07/11/20 06:52 Blast Cells # 0.0 K/mm3 07/11/20 06:52 Pathologist Review Not Reportable 06/26/20 05:47 WBC Morphology Not Reportable 07/11/20 06:52 Hypersegmented Neuts Not Reportable 07/11/20 06:52 Hyposegmented Neuts Not Reportable 07/11/20 06:52 Hypogranular Neuts Not Reportable 07/11/20 06:52 Smudge Cells Not Reportable 07/11/20 06:52 Toxic Granulation 1+ 07/11/20 06:52 Toxic Vacuolation Not Reportable 07/11/20 06:52 Dohle Bodies Not Reportable 07/11/20 06:52 Pelger-Huet Anomaly Not Reportable 07/11/20 06:52 Carlito Rods Not Reportable 07/11/20 06:52 Platelet Estimate Consistent w auto 07/11/20 06:52 Clumped Platelets Not Reportable 07/11/20 06:52 Plt Clumps, EDTA Not Reportable 07/11/20 06:52 Large Platelets Few 07/11/20 06:52 Giant Platelets Not Reportable 07/11/20 06:52 Platelet Satelliting Not Reportable 07/11/20 06:52 Plt Morphology Comment Not Reportable 07/11/20 06:52 RBC Morphology Not Reportable 07/11/20 06:52 Dimorphic RBCs Not Reportable 07/11/20 06:52 Polychromasia Not Reportable 07/11/20 06:52 Hypochromasia Not Reportable 07/11/20 06:52 Poikilocytosis Not Reportable 07/11/20 06:52 Anisocytosis 1+ 07/11/20 06:52 Microcytosis Not Reportable 07/11/20 06:52 Macrocytosis Not Reportable 07/11/20 06:52 Spherocytes Not Reportable 07/11/20 06:52 Pappenheimer Bodies Not Reportable 07/11/20 06:52 Sickle Cells Not Reportable 07/11/20 06:52 Target Cells Not Reportable 07/11/20 06:52 Tear Drop Cells Not Reportable 07/11/20 06:52 Ovalocytes Not Reportable 07/11/20 06:52 Stomatocytes Rare 07/10/20 03:55 Helmet Cells Not Reportable 07/11/20 06:52 [place] Bodies Not Reportable 07/11/20 06:52 [place] Rings Not Reportable 07/11/20 06:52 [place] Cells Not Reportable 07/11/20 06:52 Bite Cells Not Reportable 07/11/20 06:52 Crenated Cell Not Reportable 07/11/20 06:52 Elliptocytes Not Reportable 07/11/20 06:52 Acanthocytes (Spur) Not Reportable 07/11/20 06:52 Rouleaux Not Reportable 07/11/20 06:52 Hemoglobin C Crystals Not Reportable 07/11/20 06:52 Schistocytes Not Reportable 07/11/20 06:52 Malaria parasites Not Reportable 07/11/20 06:52 Victoriano Bodies Not Reportable 07/11/20 06:52 Hem Pathologist Commnt No 07/11/20 06:52 PT 17.4 Sec. (12.2-14.9) H 06/26/20 05:47 INR 1.44 (0.87-1.13) H 06/26/20 05:47 APTT 28.5 Sec. (24.2-36.6) 06/26/20 05:47 D-Dimer 6608.00 ng/mlDDU (0-234) H 07/03/20 14:50 Heparin Anti-Xa Level < 0.10 U.I./ml (0.3-0.7) L 06/26/20 01:30 ABG pH 7.347 (7.320-7.450) 07/13/20 03:11 POC ABG pCO2 49.0 mmHg (32.0-48.0) H 07/13/20 03:11 ABG pCO2 56.4 mm Hg 07/05/20 04:30 POC ABG pO2 69.6 mmHg (83-108) L 07/13/20 03:11 ABG pO2 151.9 mm Hg (80.0-90.0) H 07/05/20 04:30 POC ABG HCO3 26.3 07/13/20 03:11 ABG HCO3 26.8 mmol/L (20.0-26.0) H 07/05/20 04:30 ABG O2 Saturation 98.7 % (95.0-99.0) 07/05/20 04:30 ABG O2 Content 5.0 (0.0-44) 07/04/20 05:20 POC ABG Base Excess 0.4 07/13/20 03:11 ABG Base Excess 0.1 mmol/L (-2.0-3.0) 07/05/20 04:30 ABG Hemoglobin 8.5 (12.0-17.5) L 07/13/20 03:11 ABG Oxyhemoglobin 90.5 (94-98) L 07/13/20 03:11 ABG Carboxyhemoglobin 1.7 % (0.0-5.0) 07/05/20 04:30 ABG Methemoglobin 0.1 (0.0-1.5) 07/13/20 03:11 ABG Sodium 133.6 mmol/L (136.0-145.0) L 07/13/20 03:11 ABG Potassium 5.1 mmol/L (3.40-4.50) H 07/13/20 03:11 ABG Chloride 100.0 mmol/L (98-107) 07/13/20 03:11 ABG Glucose 104 mg/dL (65-95) H 07/13/20 03:11 Oxyhemoglobin 96.5 % (95.0-99.0) 07/05/20 04:30 Carboxyhemoglobin 0.8 (0.5-1.5) 07/13/20 03:11 FiO2 60.0 07/13/20 03:11 Sodium 133 mmol/L (137-145) L 07/13/20 06:59 Potassium 5.7 mmol/L (3.6-5.0) H 07/13/20 06:59 Chloride 96.3 mmol/L (98-107) L 07/13/20 06:59 Carbon Dioxide 20 mmol/L (22-30) L D 07/13/20 06:59 Anion Gap 22 mmol/L 07/13/20 06:59 BUN 102 mg/dL (9-20) H 07/13/20 06:59 Creatinine 4.4 mg/dL (0.8-1.3) H 07/13/20 06:59 Estimated GFR 17 ml/min 07/13/20 06:59 BUN/Creatinine Ratio 23 % 07/13/20 06:59 Glucose 101 mg/dL (75-100) H 07/13/20 06:59 POC Glucose 100 mg/dL (70-105) 07/13/20 05:34 Lactic Acid 1.40 mmol/L (0.7-2.0) 07/13/20 08:48 Calcium 7.9 mg/dL (8.4-10.2) L 07/13/20 06:59 Phosphorus 9.40 mg/dL (2.5-4.5) H 06/30/20 03:50 Magnesium 2.70 mg/dL (1.7-2.3) H 06/18/20 20:33 Ferritin 1171.0 ng/mL (30.0-300.0) H 07/03/20 14:50 Total Bilirubin 0.70 mg/dL (0.1-1.2) 07/13/20 06:59 Direct Bilirubin 0.5 mg/dL (0-0.2) H 07/05/20 08:21 Indirect Bilirubin 0.1 mg/dL 07/05/20 08:21 AST 61 units/L (5-40) H 07/13/20 06:59 ALT 85 units/L (7-56) H 07/13/20 06:59 Alkaline Phosphatase 144 units/L (35-129) H 07/13/20 06:59 Lactate Dehydrogenase 525 units/L (91-180) H 07/03/20 14:50 Total Creatine Kinase 618 units/L (55-170) H 06/29/20 Unknown Troponin T < 0.010 ng/mL (0.00-0.029) 06/17/20 12:33 C-Reactive Protein 31.50 mg/dL (0.00-1.30) H 07/03/20 14:50 Total Protein 5.4 g/dL (6.3-8.2) L 07/13/20 06:59 Albumin 2.0 g/dL (3.9-5) L 07/13/20 06:59 Albumin/Globulin Ratio 0.6 % 07/13/20 06:59 Triglycerides 246 mg/dL (2-149) H 07/12/20 04:00 Procalcitonin 6.05 ng/mL (<0.15) 07/13/20 06:59 Arterial Blood Glucose 104 mg/dL (65-95) H 07/13/20 03:11 Arterial Blood Ionized Calcium 4.3 mg/dL (4.6-5.3) L 07/13/20 03:11 Urine Color Yellow (Yellow) 06/17/20 15:57 Urine Turbidity Clear (Clear) 06/17/20 15:57 Urine pH 6.0 (5.0-7.0) 06/17/20 15:57 Ur Specific [place] 1.019 (1.003-1.030) 06/17/20 15:57 Urine Protein 30 mg/dl mg/dL (Negative) 06/17/20 15:57 Urine Glucose (UA) Neg mg/dL (Negative) 06/17/20 15:57 Urine Ketones Neg mg/dL (Negative) 06/17/20 15:57 Urine Blood Sm (Negative) 06/17/20 15:57 Urine Nitrite Neg (Negative) 06/17/20 15:57 Ur Reducing Substances Not Reportable 06/17/20 15:57 Urine Bilirubin Neg (Negative) 06/17/20 15:57 Urine Ictotest Not Reportable 06/17/20 15:57 Urine Urobilinogen < 2.0 mg/dL (<2.0) 06/17/20 15:57 Ur Leukocyte Esterase Neg (Negative) 06/17/20 15:57 Urine WBC (Auto) 1.0 /HPF (0.0-6.0) 06/17/20 15:57 Urine RBC (Auto) 2.0 /HPF (0.0-6.0) 06/17/20 15:57 Urine Mucus Few /HPF 06/17/20 15:57 Urine Creatinine 192.4 mg/dL (0.1-20.0) H 06/18/20 15:00 Urine Sodium 28 mmol/L 06/18/20 15:00 Urine Chloride 31.1 mmolL (110-250) L 06/18/20 15:00 Nasal Screen MRSA (PCR) Negative (Negative) 06/19/20 10:38 Vancomycin Trough 22.7 ug/mL (5.0-20.0) H 06/20/20 08:25 Coronavirus (PCR) Positive (Negative) A 07/03/20 10:10 Hepatitis A IgM Ab Non-reactive (NonReactive) 06/22/20 17:00 Hep Bs Antigen Non-reactive (Negative) 06/22/20 17:00 Hep B Core IgM Ab Non-reactive (NonReactive) 06/22/20 17:00 Hepatitis C Antibody Non-reactive (NonReactive) 06/22/20 17:00 SARS-CoV-2 IgG Ab Nonreactive (NonReactive) 07/04/20 05:20 Blood Type A POSITIVE 07/10/20 13:24 Antibody Screen Negative 07/10/20 13:24 Crossmatch See Detail 07/10/20 13:24 - Diagnostic Impressions Diagnostic Impressions: Echocardiogram 06/29/20 06:00 Transthoracic Echocardiogram Indication: A-fib BP: 105/47 HR: 99 Conclusions *The study is technically very difficult and limited due to poor acoustic windows. *Global left ventricular wall motion and contractility are within normal limits. *The estimated ejection fraction is 55-60%. *There is no pericardial effusion. Findings Procedure Info: The study quality is technically difficult. The study is technically limited due to poor acoustic windows. Left Ventricle: Global left ventricular wall motion and contractility are within normal limits. Global left ventricular systolic function is normal. The estimated ejection fraction is 55-60%. Left Atrium: The left atrium is not well visualized. Right Ventricle: The right ventricle is not well visualized. Right Atrium: The right atrium is not well visualized. Aortic Valve: The aortic valve is not well visualized. Mitral Valve: The mitral valve is not well visualized. Tricuspid Valve: The tricuspid valve is not well visualized. Pulmonic Valve: The pulmonic valve is not well visualized. Pericardium: There is no pericardial effusion. Venous: There is no change in the dimension of the inferior vena cava with respiration consistent with markedly increased right atrial pressure. [place]/IV: Voiding Method Incontinent Active Medications - Current Medications Current Medications: Generic Name Dose Route Start Last Admin Trade Name Freq PRN Reason Stop Dose Admin Acetaminophen 650 mg 06/17/20 14:17 07/03/20 09:16 Acetaminophen 325 Mg Tab PO 650 mg Q4H PRN Administration Pain MILD(1-3)/Fever >100.5/ROBERTS Amiodarone HCl 200 mg 07/08/20 12:30 07/13/20 09:55 Amiodarone 200 Mg Tab PO 200 mg BID CONNOR Administration Lipase/Protease/Amylase 1 each 06/19/20 12:15 Lipase 10,500/Protease 25,000/Amylase 43,750 (Units) Dr Kulkarni FEEDTUBE PRN PRN For Clogged Feeding Tube Ascorbic Acid 250 mg 06/17/20 22:00 07/13/20 09:54 Ascorbic Acid 250 Mg Tab PO 250 mg BID CONNOR Administration Cholecalciferol 1,000 unit 06/18/20 10:00 07/13/20 09:54 Cholecalciferol (Vit D3) 1000 Unit (25 Mcg) Tab PO 1,000 unit DAILY CONNOR Administration Dexamethasone 2 mg 07/14/20 10:00 Dexamethasone 4 Mg/Ml Vial IV 07/15/20 10:01 DAILY CONNOR Docusate Sodium 100 mg 06/23/20 15:00 07/13/20 09:55 Docusate Sodium 100 Mg/10 Ml Oral Liqd FEEDTUBE 100 mg BID CONNOR Administration Famotidine 20 mg 07/13/20 10:00 07/13/20 09:56 Famotidine 20 Mg Tab PO 20 mg DAILY CONNOR Administration Fentanyl 50 mcg 06/18/20 01:02 07/09/20 00:20 Fentanyl 100 Mcg/2 Ml Inj IV 50 mcg Q10MIN PRN Administration ANALGESIA Heparin Sodium (Porcine) 5,000 unit 06/22/20 12:53 06/30/20 13:36 Heparin 10,000 Unit/1 Ml Vial IV 5,000 unit PAM PRN Administration hemodialysis Heparin Sodium (Porcine) 5,000 unit 07/03/20 22:00 07/13/20 13:18 Heparin 5,000 Unit/1 Ml Vial SUB-Q 5,000 unit Q8HR CONNOR Administration Hydrophilic Ointment 1 applic 06/17/20 22:52 07/12/20 20:22 Lip Therapy Vaseline TP 1 applic Q2HR PRN Administration Dry Lips Propofol 1,000 mg in 100 mls @ 3.402 mls/hr 06/18/20 01:00 07/13/20 13:18 Diprivan 10 Mg/Ml IV 10 mcg/kg/min TITR CONNOR 6.804 mls/hr Administration Protocol 5 MCG/KG/MIN Fentanyl Citrate 2,000 mcg in 100 mls @ 8 mls/hr 06/18/20 02:00 07/13/20 14:25 Fentanyl Drip Premix IV 3 mcg/kg/hr TITR CONNOR 17.01 mls/hr Administration Protocol 1 MCG/KG/HR Sodium Chloride 500 mls @ 1 mls/hr 06/18/20 09:38 06/19/20 21:37 Nacl 0.9% 500 Ml IV 0 mls/hr DIRECT PRN Infusion ARTERIAL LINE FLUSH Norepinephrine 4 mg in 250 mls @ 7.5 mls/hr 07/08/20 02:06 07/13/20 11:30 Levophed Drip 4 Mg/Ns 250 Ml IV 2 mcg/min TITR CONNOR 7.5 mls/hr Administration Protocol 2 MCG/MIN Vasopressin 20 unit/ Sodium 101 mls @ 9.09 mls/hr 07/11/20 11:00 07/13/20 10:29 Chloride IV 0.03 units/min TITR CONNOR 9.09 mls/hr Administration Protocol 0.03 UNITS/MIN Sodium Chloride 100 mls @ 999 mls/hr 07/12/20 10:00 Nacl 0.9% IV PAM PRN Hypotension Insulin Human Regular 0 units 06/18/20 12:00 07/13/20 12:17 Insulin Regular, Human 100 Units/1 Ml SUB-Q Not Given Q6HR CONNOR Protocol Multi-Ingred Cream/Lotion/Oil/Oint 1 applic 06/17/20 22:52 07/12/20 20:22 Mineral Oil/Petrolatum, White Ophth Oint 3.5 Gm OU 1 applic Q4HR PRN Administration Dry Eye(s) Ondansetron HCl 4 mg 06/17/20 14:17 Ondansetron 4 Mg/2 Ml Inj IV Q8H PRN Nausea And Vomiting Polyethylene Glycol 17 gm 06/23/20 15:00 07/13/20 09:54 Polyethylene Glycol 3350 17 Gm Powder PO 17 gm QDAY CONNOR Administration Quetiapine Fumarate 200 mg 06/28/20 13:00 07/13/20 09:55 Quetiapine 200 Mg Tab PO 200 mg BID CONNOR Administration Simple Syrup 15 ml 06/19/20 12:15 Simple Syrup 15 Ml FEEDTUBE PRN PRN Hypoglycemia Simple Syrup 30 ml 06/19/20 12:15 Simple Syrup 15 Ml FEEDTUBE PRN PRN Hypoglycemia Sodium Bicarbonate 325 mg 06/19/20 12:15 07/11/20 20:00 Sodium Bicarbonate 325 Mg Tab FEEDTUBE 325 mg PRN PRN Administration For Clogged Feeding Tube Sodium Bicarbonate 650 mg 07/04/20 10:00 07/13/20 13:18 Sodium Bicarbonate 650 Mg Tab PO 650 mg TID CONNOR Administration Sodium Chloride 10 ml 06/17/20 22:00 07/13/20 09:55 Sodium Chloride 0.9% 10 Ml Flush Syringe IV 10 ml BID CONNOR Administration Sodium Chloride 10 ml 06/17/20 14:17 Sodium Chloride 0.9% 10 Ml Flush Syringe IV PRN PRN LINE FLUSH Sodium Polystyrene Sulfonate 15 gm 07/03/20 11:19 07/05/20 10:36 Sodium Polystyrene 15 Gm/60 Ml Oral Liqd PO 15 gm Q6HR PRN Administration Hyperkalemia Zinc Sulfate 220 mg 06/17/20 22:00 07/13/20 09:55 Zinc Sulfate 220 Mg Cap PO 220 mg BID CONNOR Administration Nutrition/Malnutrition Assess - Dietary Evaluation Nutrition/Malnutrition Findings: Nutrition Notes Start: 06/18/20 10:28 Freq: Status: Active Protocol: Document 07/12/20 11:11 AL (Rec: 07/12/20 11:15 AL [id number]) Co-Sign 07/12/20 11:11 LP Nutrition Notes Initial or Follow up Reassessment Current Diagnosis Acute Kidney Injury,Sepsis, Respiratory Failure Other Pertinent Diagnosis COVID-19 (+), pneu Current Diet Nepro 1.8 at 40ml/hr Labs/Tests Na 134 BUN 79 Cr 3.7 Pertinent Medications Propofol at 6.8 ml/hr (180 kcal) Levophed Vasopressin Height 6 ft Weight 160 kg [place] Body Weight (kg) 80.90 BMI 47.8 Weight change and time frame Wt change of 30 kg noted. Pt on HD Weight Status Obese Subjective/Other Information FU for stable TF. Pt tolerating TF at 40 ml/hr ( goal rate). Percent of energy/protein needs met: 89%/48% Burn Absent Trauma Absent Current % PO Negligible Minimum of two criteria No physical signs of malnutrition #2 Nutrition Diagnosis Overweight/obesity Diagnosis Progress(for reassessment Continues documentation) #1 Nutrition Diagnosis Inadequate oral intake Diagnosis Progress(for reassessment Continues documentation) Is patient on ventilator? Yes Is Patient Ambulatory and/or Out of Bed No REE-([facility]-confined to bed) [phone] Kcal/Kg value to use for calculation 12 Approximate Energy Requirements Using 1920 kcal/Kg Calculation Used for Recommendations Kcal/kg Additional Notes Protein needs up to >2 g/kg IBW: 162 g Fluid needs: 1,000 ml + output Nutrition Intervention Change Diet Order: TF Nutrition Support: Nepro 1.8 at 50 ml/hr Flush 215 ml q4h Kcal 2,160 Protein (gm) 97 Fluid (mL) 872 Goal #1 Tolerate TF at goal rate Goal #2 Meet energy and protein needs as best as possible. Anticipated Discharge Needs: Unable to determine at the time. Follow-Up By: 07/19/20 Additional Comments F/U for TF tolerance and vent status <ZEESHAN CHAIDEZ - Last Filed: 07/14/20 11:51> Assessment and Plan Assessment and plan: I saw and evaluated the patient. I agree with the findings and the plan of care as documented in the Nurse Practitioner's~note, with the following corrections and additions. prognosis is guarded The high probability of a clinically significant, sudden or life threatening deterioration of the [pulmonary] system(s) required my full and direct attention, intervention and personal management. The aggregate critical care time was [35] minutes. This time is in addition to time spent performing reported procedures but includes the following: [x] Data Review and interpretation [x] Patient assessment and monitoring of vital signs [x] Documentation [x] Medication orders and management Hospitalist Physical - Constitutional Vitals: Temp Pulse Resp BP Pulse Ox 97.4 F L 110 H 30 H 123/64 97 07/14/20 08:00 07/14/20 11:00 07/14/20 11:00 07/14/20 11:00 07/14/20 11:00 HEART Score - HEART Score Troponin: Troponin T < 0.010 ng/mL (0.00-0.029) 06/17/20 12:33 Results - Labs CBC & Chem 7: 07/13/20 16:47 07/13/20 15:12 Labs: Laboratory Last Values WBC 27.5 K/mm3 (4.5-11.0) H 07/13/20 08:48 RBC 3.03 M/mm3 (3.65-5.03) L 07/13/20 08:48 Hgb 7.4 gm/dl (11.8-15.2) L 07/13/20 16:47 Hct 22.1 % (35.5-45.6) L 07/13/20 16:47 MCV 89 fl (84-94) 07/13/20 08:48 MCH 29 pg (28-32) 07/13/20 08:48 MCHC 32 % (32-34) 07/13/20 08:48 RDW 18.0 % (13.2-15.2) H 07/13/20 08:48 Plt Count 364 K/mm3 (140-440) 07/13/20 08:48 Lymph % (Auto) 5.6 % (13.4-35.0) L 07/12/20 03:40 Rich % (Auto) 7.4 % (0.0-7.3) H 07/12/20 03:40 Eos % (Auto) 2.8 % (0.0-4.3) 07/12/20 03:40 Baso % (Auto) 0.3 % (0.0-1.8) 07/12/20 03:40 Lymph # (Auto) 1.4 K/mm3 (1.2-5.4) 07/12/20 03:40 Rich # (Auto) 1.8 K/mm3 (0.0-0.8) H 07/12/20 03:40 Eos # (Auto) 0.7 K/mm3 (0.0-0.4) H 07/12/20 03:40 Baso # (Auto) 0.1 K/mm3 (0.0-0.1) 07/12/20 03:40 Add Manual Diff Complete 07/11/20 06:52 Total Counted 100 07/11/20 06:52 Seg Neutrophils % 83.9 % (40.0-70.0) H 07/12/20 03:40 Seg Neuts % (Manual) 65.0 % (40.0-70.0) 07/11/20 06:52 Band Neutrophils % 7.0 % 07/11/20 06:52 Lymphocytes % (Manual) 1.0 % (13.4-35.0) L 07/11/20 06:52 Reactive Lymphs % (Man) 1.0 % 06/23/20 04:00 Monocytes % (Manual) 11.0 % (0.0-7.3) H 07/11/20 06:52 Eosinophils % (Manual) 4.0 % (0.0-4.3) 07/11/20 06:52 Metamyelocytes % 12.0 % 07/11/20 06:52 Myelocytes % 2.0 % 07/10/20 03:55 Nucleated RBC % Not Reportable 07/11/20 06:52 Seg Neutrophils # 20.4 K/mm3 (1.8-7.7) H 07/12/20 03:40 Seg Neutrophils # Man 16.9 K/mm3 (1.8-7.7) H 07/11/20 06:52 Band Neutrophils # 1.8 K/mm3 07/11/20 06:52 Lymphocytes # (Manual) 0.3 K/mm3 (1.2-5.4) L 07/11/20 06:52 Abs React Lymphs (Man) 0.0 K/mm3 07/11/20 06:52 Monocytes # (Manual) 2.9 K/mm3 (0.0-0.8) H 07/11/20 06:52 Eosinophils # (Manual) 1.0 K/mm3 (0.0-0.4) H 07/11/20 06:52 Basophils # (Manual) 0.0 K/mm3 (0.0-0.1) 07/11/20 06:52 Metamyelocytes # 3.1 K/mm3 07/11/20 06:52 Myelocytes # 0.0 K/mm3 07/11/20 06:52 Promyelocytes # 0.0 K/mm3 07/11/20 06:52 Blast Cells # 0.0 K/mm3 07/11/20 06:52 Pathologist Review Not Reportable 06/26/20 05:47 WBC Morphology Not Reportable 07/11/20 06:52 Hypersegmented Neuts Not Reportable 07/11/20 06:52 Hyposegmented Neuts Not Reportable 07/11/20 06:52 Hypogranular Neuts Not Reportable 07/11/20 06:52 Smudge Cells Not Reportable 07/11/20 06:52 Toxic Granulation 1+ 07/11/20 06:52 Toxic Vacuolation Not Reportable 07/11/20 06:52 Dohle Bodies Not Reportable 07/11/20 06:52 Pelger-Huet Anomaly Not Reportable 07/11/20 06:52 Carlito Rods Not Reportable 07/11/20 06:52 Platelet Estimate Consistent w auto 07/11/20 06:52 Clumped Platelets Not Reportable 07/11/20 06:52 Plt Clumps, EDTA Not Reportable 07/11/20 06:52 Large Platelets Few 07/11/20 06:52 Giant Platelets Not Reportable 07/11/20 06:52 Platelet Satelliting Not Reportable 07/11/20 06:52 Plt Morphology Comment Not Reportable 07/11/20 06:52 RBC Morphology Not Reportable 07/11/20 06:52 Dimorphic RBCs Not Reportable 07/11/20 06:52 Polychromasia Not Reportable 07/11/20 06:52 Hypochromasia Not Reportable 07/11/20 06:52 Poikilocytosis Not Reportable 07/11/20 06:52 Anisocytosis 1+ 07/11/20 06:52 Microcytosis Not Reportable 07/11/20 06:52 Macrocytosis Not Reportable 07/11/20 06:52 Spherocytes Not Reportable 07/11/20 06:52 Pappenheimer Bodies Not Reportable 07/11/20 06:52 Sickle Cells Not Reportable 07/11/20 06:52 Target Cells Not Reportable 07/11/20 06:52 Tear Drop Cells Not Reportable 07/11/20 06:52 Ovalocytes Not Reportable 07/11/20 06:52 Stomatocytes Rare 07/10/20 03:55 Helmet Cells Not Reportable 07/11/20 06:52 [place] Bodies Not Reportable 07/11/20 06:52 [place] Rings Not Reportable 07/11/20 06:52 Livier Cells Not Reportable 07/11/20 06:52 Bite Cells Not Reportable 07/11/20 06:52 Crenated Cell Not Reportable 07/11/20 06:52 Elliptocytes Not Reportable 07/11/20 06:52 Acanthocytes (Spur) Not Reportable 07/11/20 06:52 Rouleaux Not Reportable 07/11/20 06:52 Hemoglobin C Crystals Not Reportable 07/11/20 06:52 Schistocytes Not Reportable 07/11/20 06:52 Malaria parasites Not Reportable 07/11/20 06:52 Victoriano Bodies Not Reportable 07/11/20 06:52 Hem Pathologist Commnt No 07/11/20 06:52 PT 17.4 Sec. (12.2-14.9) H 06/26/20 05:47 INR 1.44 (0.87-1.13) H 06/26/20 05:47 APTT 28.5 Sec. (24.2-36.6) 06/26/20 05:47 D-Dimer 6608.00 ng/mlDDU (0-234) H 07/03/20 14:50 Heparin Anti-Xa Level < 0.10 U.I./ml (0.3-0.7) L 06/26/20 01:30 ABG pH 7.332 (7.320-7.450) 07/14/20 04:25 POC ABG pCO2 46.7 mmHg (32.0-48.0) 07/14/20 04:25 ABG pCO2 56.4 mm Hg 07/05/20 04:30 POC ABG pO2 87.6 mmHg (83-108) 07/14/20 04:25 ABG pO2 151.9 mm Hg (80.0-90.0) H 07/05/20 04:30 POC ABG HCO3 24.2 07/14/20 04:25 ABG HCO3 26.8 mmol/L (20.0-26.0) H 07/05/20 04:30 ABG O2 Saturation 98.7 % (95.0-99.0) 07/05/20 04:30 ABG O2 Content 5.0 (0.0-44) 07/04/20 05:20 POC ABG Base Excess -1.8 07/14/20 04:25 ABG Base Excess 0.1 mmol/L (-2.0-3.0) 07/05/20 04:30 ABG Hemoglobin 8.9 (12.0-17.5) L 07/14/20 04:25 ABG Oxyhemoglobin 94.2 (94-98) 07/14/20 04:25 ABG Carboxyhemoglobin 1.7 % (0.0-5.0) 07/05/20 04:30 ABG Methemoglobin 0.3 (0.0-1.5) 07/14/20 04:25 ABG Sodium 133.1 mmol/L (136.0-145.0) L 07/14/20 04:25 ABG Potassium 4.7 mmol/L (3.40-4.50) H 07/14/20 04:25 ABG Chloride 101.0 mmol/L (98-107) 07/14/20 04:25 ABG Glucose 113 mg/dL (65-95) H 07/14/20 04:25 Oxyhemoglobin 96.5 % (95.0-99.0) 07/05/20 04:30 Carboxyhemoglobin 1.3 (0.5-1.5) 07/14/20 04:25 FiO2 60 07/14/20 04:25 Sodium 137 mmol/L (137-145) 07/13/20 15:12 Potassium 5.5 mmol/L (3.6-5.0) H 07/13/20 15:12 Chloride 99.8 mmol/L (98-107) 07/13/20 15:12 Carbon Dioxide 23 mmol/L (22-30) 07/13/20 15:12 Anion Gap 20 mmol/L 07/13/20 15:12 BUN 88 mg/dL (9-20) H 07/13/20 15:12 Creatinine 3.8 mg/dL (0.8-1.3) H 07/13/20 15:12 Estimated GFR 20 ml/min 07/13/20 15:12 BUN/Creatinine Ratio 23 % 07/13/20 15:12 Glucose 133 mg/dL (75-100) H 07/13/20 15:12 POC Glucose 90 mg/dL (70-105) 07/14/20 05:52 Lactic Acid 1.40 mmol/L (0.7-2.0) 07/13/20 08:48 Calcium 7.5 mg/dL (8.4-10.2) L 07/13/20 15:12 Phosphorus 9.40 mg/dL (2.5-4.5) H 06/30/20 03:50 Magnesium 2.70 mg/dL (1.7-2.3) H 06/18/20 20:33 Ferritin 1171.0 ng/mL (30.0-300.0) H 07/03/20 14:50 Total Bilirubin 0.70 mg/dL (0.1-1.2) 07/13/20 06:59 Direct Bilirubin 0.5 mg/dL (0-0.2) H 07/05/20 08:21 Indirect Bilirubin 0.1 mg/dL 07/05/20 08:21 AST 61 units/L (5-40) H 07/13/20 06:59 ALT 85 units/L (7-56) H 07/13/20 06:59 Alkaline Phosphatase 144 units/L (35-129) H 07/13/20 06:59 Lactate Dehydrogenase 525 units/L (91-180) H 07/03/20 14:50 Total Creatine Kinase 618 units/L (55-170) H 06/29/20 Unknown Troponin T < 0.010 ng/mL (0.00-0.029) 06/17/20 12:33 C-Reactive Protein 31.50 mg/dL (0.00-1.30) H 07/03/20 14:50 Total Protein 5.4 g/dL (6.3-8.2) L 07/13/20 06:59 Albumin 2.0 g/dL (3.9-5) L 07/13/20 06:59 Albumin/Globulin Ratio 0.6 % 07/13/20 06:59 Triglycerides 246 mg/dL (2-149) H 07/12/20 04:00 Procalcitonin 6.05 ng/mL (<0.15) 07/13/20 06:59 Arterial Blood Glucose 113 mg/dL (65-95) H 07/14/20 04:25 Arterial Blood Ionized Calcium 4.4 mg/dL (4.6-5.3) L 07/14/20 04:25 Urine Color Yellow (Yellow) 06/17/20 15:57 Urine Turbidity Clear (Clear) 06/17/20 15:57 Urine pH 6.0 (5.0-7.0) 06/17/20 15:57 Ur Specific [place]ham 1.019 (1.003-1.030) 06/17/20 15:57 Urine Protein 30 mg/dl mg/dL (Negative) 06/17/20 15:57 Urine Glucose (UA) Neg mg/dL (Negative) 06/17/20 15:57 Urine Ketones Neg mg/dL (Negative) 06/17/20 15:57 Urine Blood Sm (Negative) 06/17/20 15:57 Urine Nitrite Neg (Negative) 06/17/20 15:57 Ur Reducing Substances Not Reportable 06/17/20 15:57 Urine Bilirubin Neg (Negative) 06/17/20 15:57 Urine Ictotest Not Reportable 06/17/20 15:57 Urine Urobilinogen < 2.0 mg/dL (<2.0) 06/17/20 15:57 Ur Leukocyte Esterase Neg (Negative) 06/17/20 15:57 Urine WBC (Auto) 1.0 /HPF (0.0-6.0) 06/17/20 15:57 Urine RBC (Auto) 2.0 /HPF (0.0-6.0) 06/17/20 15:57 Urine Mucus Few /HPF 06/17/20 15:57 Urine Creatinine 192.4 mg/dL (0.1-20.0) H 06/18/20 15:00 Urine Sodium 28 mmol/L 06/18/20 15:00 Urine Chloride 31.1 mmolL (110-250) L 06/18/20 15:00 Nasal Screen MRSA (PCR) Negative (Negative) 06/19/20 10:38 Vancomycin Trough 22.7 ug/mL (5.0-20.0) H 06/20/20 08:25 Coronavirus (PCR) Positive (Negative) A 07/03/20 10:10 Hepatitis A IgM Ab Non-reactive (NonReactive) 06/22/20 17:00 Hep Bs Antigen Non-reactive (Negative) 06/22/20 17:00 Hep B Core IgM Ab Non-reactive (NonReactive) 06/22/20 17:00 Hepatitis C Antibody Non-reactive (NonReactive) 06/22/20 17:00 SARS-CoV-2 IgG Ab Nonreactive (NonReactive) 07/04/20 05:20 Blood Type A POSITIVE 07/13/20 16:46 Antibody Screen Negative 07/13/20 16:46 Crossmatch See Detail 07/13/20 16:46 - Diagnostic Impressions Diagnostic Impressions: Echocardiogram 06/29/20 06:00 Transthoracic Echocardiogram Indication: A-fib BP: 105/47 HR: 99 Conclusions *The study is technically very difficult and limited due to poor acoustic windows. *Global left ventricular wall motion and contractility are within normal limits. *The estimated ejection fraction is 55-60%. *There is no pericardial effusion. Findings Procedure Info: The study quality is technically difficult. The study is technically limited due to poor acoustic windows. Left Ventricle: Global left ventricular wall motion and contractility are within normal limits. Global left ventricular systolic function is normal. The estimated ejection fraction is 55-60%. Left Atrium: The left atrium is not well visualized. Right Ventricle: The right ventricle is not well visualized. Right Atrium: The right atrium is not well visualized. Aortic Valve: The aortic valve is not well visualized. Mitral Valve: The mitral valve is not well visualized. Tricuspid Valve: The tricuspid valve is not well visualized. Pulmonic Valve: The pulmonic valve is not well visualized. Pericardium: There is no pericardial effusion. Venous: There is no change in the dimension of the inferior vena cava with respiration consistent with markedly increased right atrial pressure. [place]/IV: Voiding Method Incontinent Active Medications - Current Medications Current Medications: Generic Name Dose Route Start Last Admin Trade Name Freq PRN Reason Stop Dose Admin Acetaminophen 650 mg 06/17/20 14:17 07/03/20 09:16 Acetaminophen 325 Mg Tab PO 650 mg Q4H PRN Administration Pain MILD(1-3)/Fever >100.5/ROBERTS Lipase/Protease/Amylase 1 each 06/19/20 12:15 Lipase 10,500/Protease 25,000/Amylase 43,750 (Units) Dr Kulkarni FEEDTUBE PRN PRN For Clogged Feeding Tube Ascorbic Acid 250 mg 06/17/20 22:00 07/14/20 09:30 Ascorbic Acid 250 Mg Tab PO 250 mg BID CONNOR Administration Cholecalciferol 1,000 unit 06/18/20 10:00 07/14/20 09:30 Cholecalciferol (Vit D3) 1000 Unit (25 Mcg) Tab PO 1,000 unit DAILY CONNOR Administration Dexamethasone 2 mg 07/14/20 10:00 07/14/20 09:31 Dexamethasone 4 Mg/Ml Vial IV 07/15/20 10:01 2 mg DAILY CONNOR Administration Docusate Sodium 100 mg 06/23/20 15:00 07/14/20 09:30 Docusate Sodium 100 Mg/10 Ml Oral Liqd FEEDTUBE 100 mg BID CONNOR Administration Famotidine 20 mg 07/13/20 10:00 07/14/20 09:30 Famotidine 20 Mg Tab PO 20 mg DAILY CONNOR Administration Fentanyl 50 mcg 06/18/20 01:02 07/09/20 00:20 Fentanyl 100 Mcg/2 Ml Inj IV 50 mcg Q10MIN PRN Administration ANALGESIA Heparin Sodium (Porcine) 5,000 unit 06/22/20 12:53 06/30/20 13:36 Heparin 10,000 Unit/1 Ml Vial IV 5,000 unit PAM PRN Administration hemodialysis Hydrophilic Ointment 1 applic 06/17/20 22:52 07/12/20 20:22 Lip Therapy Vaseline TP 1 applic Q2HR PRN Administration Dry Lips Propofol 1,000 mg in 100 mls @ 3.402 mls/hr 06/18/20 01:00 07/14/20 09:31 Diprivan 10 Mg/Ml IV 10 mcg/kg/min TITR CONNOR 6.804 mls/hr Administration Protocol 5 MCG/KG/MIN Fentanyl Citrate 2,000 mcg in 100 mls @ 8 mls/hr 06/18/20 02:00 07/14/20 07:45 Fentanyl Drip Premix IV 3 mcg/kg/hr TITR CONNOR 17.01 mls/hr Administration Protocol 1 MCG/KG/HR Sodium Chloride 500 mls @ 1 mls/hr 06/18/20 09:38 06/19/20 21:37 Nacl 0.9% 500 Ml IV 0 mls/hr DIRECT PRN Infusion ARTERIAL LINE FLUSH Norepinephrine 4 mg in 250 mls @ 7.5 mls/hr 07/08/20 02:06 07/13/20 18:03 Levophed Drip 4 Mg/Ns 250 Ml IV 0 mcg/min TITR CONNOR 0 mls/hr Titration Protocol 2 MCG/MIN Vasopressin 20 unit/ Sodium 101 mls @ 9.09 mls/hr 07/11/20 11:00 07/14/20 08:35 Chloride IV 0.03 units/min TITR CONNOR 9.09 mls/hr Administration Protocol 0.03 UNITS/MIN Sodium Chloride 100 mls @ 999 mls/hr 07/12/20 10:00 Nacl 0.9% IV PAM PRN Hypotension Sodium Chloride 500 mls @ 0 mls/hr 07/13/20 16:46 Nacl 0.9% 500 Ml IV 07/14/20 16:45 ONCE CONNOR As Directed Amiodarone HCl 900 mg/ 500 mls @ 33.333 mls/hr 07/14/20 12:30 Dextrose IV DIRECT CONNOR Protocol 1 MG/MIN Insulin Human Regular 0 units 06/18/20 12:00 07/14/20 06:15 Insulin Regular, Human 100 Units/1 Ml SUB-Q Not Given Q6HR CONNOR Protocol Multi-Ingred Cream/Lotion/Oil/Oint 1 applic 06/17/20 22:52 07/12/20 20:22 Mineral Oil/Petrolatum, White Ophth Oint 3.5 Gm OU 1 applic Q4HR PRN Administration Dry Eye(s) Ondansetron HCl 4 mg 06/17/20 14:17 Ondansetron 4 Mg/2 Ml Inj IV Q8H PRN Nausea And Vomiting Polyethylene Glycol 17 gm 06/23/20 15:00 07/14/20 09:30 Polyethylene Glycol 3350 17 Gm Powder PO 17 gm QDAY CONNOR Administration Quetiapine Fumarate 200 mg 06/28/20 13:00 07/14/20 09:30 Quetiapine 200 Mg Tab PO 200 mg BID CONNOR Administration Simple Syrup 15 ml 06/19/20 12:15 Simple Syrup 15 Ml FEEDTUBE PRN PRN Hypoglycemia Simple Syrup 30 ml 06/19/20 12:15 Simple Syrup 15 Ml FEEDTUBE PRN PRN Hypoglycemia Sodium Bicarbonate 325 mg 06/19/20 12:15 07/11/20 20:00 Sodium Bicarbonate 325 Mg Tab FEEDTUBE 325 mg PRN PRN Administration For Clogged Feeding Tube Sodium Bicarbonate 650 mg 07/04/20 10:00 07/14/20 07:46 Sodium Bicarbonate 650 Mg Tab PO 650 mg TID CONNOR Administration Sodium Chloride 10 ml 06/17/20 22:00 07/14/20 09:32 Sodium Chloride 0.9% 10 Ml Flush Syringe IV 10 ml BID CONNOR Administration Sodium Chloride 10 ml 06/17/20 14:17 Sodium Chloride 0.9% 10 Ml Flush Syringe IV PRN PRN LINE FLUSH Sodium Polystyrene Sulfonate 15 gm 07/03/20 11:19 07/05/20 10:36 Sodium Polystyrene 15 Gm/60 Ml Oral Liqd PO 15 gm Q6HR PRN Administration Hyperkalemia Zinc Sulfate 220 mg 06/17/20 22:00 07/14/20 09:30 Zinc Sulfate 220 Mg Cap PO 220 mg BID CONNOR Administration Nutrition/Malnutrition Assess - Dietary Evaluation Nutrition/Malnutrition Findings: Nutrition Notes Start: 06/18/20 10:28 Freq: Status: Active Protocol: Document 07/12/20 11:11 AL (Rec: 07/12/20 11:15 AL [id number]) Co-Sign 07/12/20 11:11 LP Nutrition Notes Initial or Follow up Reassessment Current Diagnosis Acute Kidney Injury,Sepsis, Respiratory Failure Other Pertinent Diagnosis COVID-19 (+), pneu Current Diet Nepro 1.8 at 40ml/hr Labs/Tests Na 134 BUN 79 Cr 3.7 Pertinent Medications Propofol at 6.8 ml/hr (180 kcal) Levophed Vasopressin Height 6 ft Weight 160 kg [place] Body Weight (kg) 80.90 BMI 47.8 Weight change and time frame Wt change of 30 kg noted. Pt on HD Weight Status Obese Subjective/Other Information FU for stable TF. Pt tolerating TF at 40 ml/hr ( goal rate). Percent of energy/protein needs met: 89%/48% Burn Absent Trauma Absent Current % PO Negligible Minimum of two criteria No physical signs of malnutrition #2 Nutrition Diagnosis Overweight/obesity Diagnosis Progress(for reassessment Continues documentation) #1 Nutrition Diagnosis Inadequate oral intake Diagnosis Progress(for reassessment Continues documentation) Is patient on ventilator? Yes Is Patient Ambulatory and/or Out of Bed No REE-([employer]-[facility] Jeor-confined to bed) 2929.632 Kcal/Kg value to use for calculation 12 Approximate Energy Requirements Using 1920 kcal/Kg Calculation Used for Recommendations Kcal/kg Additional Notes Protein needs up to >2 g/kg IBW: 162 g Fluid needs: 1,000 ml + output Nutrition Intervention Change Diet Order: TF Nutrition Support: Nepro 1.8 at 50 ml/hr Flush 215 ml q4h Kcal 2,160 Protein (gm) 97 Fluid (mL) 872 Goal #1 Tolerate TF at goal rate Goal #2 Meet energy and protein needs as best as possible. Anticipated Discharge Needs: Unable to determine at the time. Follow-Up By: 07/19/20 Additional Comments F/U for TF tolerance and vent status
[2020-07-13] MEDS ORDERED: SODIUM CHLORIDE 0.9% 500 ML 500 ML IV SCH (16:46)
[2020-07-13 16:59] LABS: Hematocrit 22.1 % (35.5-45.6); Hemoglobin 7.4 gm/dl (11.8-15.2)
[2020-07-13 17:21] LABS: Calcium 7.5 mg/dL (8.4-10.2)
[2020-07-14] MEDS: fentaNYL DRIP Premix 2,000 MCG/100 ML BAG IV SCH ×5 (02:31→20:50)
[2020-07-14] MEDS: INSULIN REGULAR, HUMAN 100 UNITS/1 ML SUB-Q SCH ×4 (06:15→23:45)
[2020-07-14] MEDS: SODIUM BICARBONATE 650 MG TAB PO SCH ×3 (07:46→20:52)
[2020-07-14] MEDS: VASOPRESSIN 20 UNIT in SODIUM CHLORIDE 0.9% 100 ML IV SCH ×2 (08:35→18:36)
[2020-07-14] MEDS: ZINC SULFATE 220 MG CAP PO SCH ×3 (09:30→22:41)
[2020-07-14] MEDS: QUEtiapine 200 MG TAB PO SCH ×3 (09:30→22:40)
[2020-07-14] MEDS: POLYETHYLENE GLYCOL 3350 17 GM POWDER PO SCH (09:30)
[2020-07-14] MEDS: CHOLECALCIFEROL (VIT D3) 1000 UNIT (25 mcg) TAB PO SCH (09:30)
[2020-07-14] MEDS: FAMOTIDINE 20 MG TAB PO SCH (09:30)
[2020-07-14] MEDS: ASCORBIC ACID 250 MG TAB PO SCH ×2 (09:30→22:41)
[2020-07-14] MEDS: AMIODARONE 200 MG TAB PO SCH (09:30)
[2020-07-14] MEDS: DOCUSATE SODIUM 100 MG/10 ML ORAL LIQD FEEDTUBE SCH ×2 (09:30→22:41)
[2020-07-14] MEDS ORDERED: dexAMETHasone 4 MG/ML VIAL IV SCH (10:00)
--- NOTE | 2020-07-14 11:41 | Progress Note ---
Assessment and Plan tele reviewed - currently in AFib/AFlutter HR 120s-130s. pt continues to intermittently require vasopressors. Optimize HR - convert PO amio to IV amio. The patient has been seen in conjunction with Dr. Chavis who agrees with the assessment and plan of care. - Patient Problems (1) Acute respiratory failure with hypoxia Current Visit: Yes Status: Acute (2) Pneumonia due to COVID-19 virus Current Visit: Yes Status: Acute (3) Sepsis Current Visit: Yes Status: Acute Qualifiers: Severe sepsis acute organ dysfunction type: acute respiratory failure Severe sepsis shock status: with septic shock (4) Atrial fibrillation with rapid ventricular response Current Visit: Yes Status: Acute (5) Acute renal failure Current Visit: Yes Status: Acute (6) Elevated LFTs Current Visit: Yes Status: Acute (7) Anemia Current Visit: Yes Status: Acute Subjective Date of service: 07/14/20 Principal diagnosis: ARF; Septic Shock; COVID-19 PNA; Atrial fibrillation; Obesity Interval history: pt remains intubated, sedated. intermittently requiring vasopressor support. tele reviewed - currently in AFib/AFlutter HR 120s-130s. Objective Last Vital Signs Temp 97.4 F L 07/14/20 08:00 Pulse 110 H 07/14/20 11:00 Resp 30 H 07/14/20 11:00 BP 123/64 07/14/20 11:00 Pulse Ox 97 07/14/20 11:00 - Physical Examination General: Other (intubated, lethargic) Neck: Positive: neck supple Cardiac: Positive: irregularly irregular, S1/S2, Tachycardia Lungs: Positive: Decreased Breath Sounds, Oxygen, Ventilated Respirations Neuro: Positive: Other (intubated, lethargic) Abdomen: Positive: Soft Skin: Negative: Rash, Wound Extremities: Present: upper extr. pulses, lower extr. pulses, +1 Edema - Labs and Meds CBC 07/13/20 Range/Units 16:47 Hgb 7.4 L (11.8-15.2) gm/dl Hct 22.1 L (35.5-45.6) % Comprehensive Metabolic Panel 07/13/20 Range/Units 15:12 Sodium 137 (137-145) mmol/L Potassium 5.5 H (3.6-5.0) mmol/L Chloride 99.8 (98-107) mmol/L Carbon Dioxide 23 (22-30) mmol/L BUN 88 H (9-20) mg/dL Creatinine 3.8 H (0.8-1.3) mg/dL Glucose 133 H (75-100) mg/dL Calcium 7.5 L (8.4-10.2) mg/dL - Imaging and Cardiology EKG: report reviewed, image reviewed Echo: report reviewed (TDS, EF 55-60%. ) - Telemetry EKG Rhythm: Atrial Fibrillation - EKG Sinus rhythms and dysrhythmias: sinus tachycardia - Allied health notes Allied health notes reviewed: nursing
--- NOTE | 2020-07-14 11:41 | Progress Note ---
<DARYL OTTORafy - Last Filed: 07/14/20 14:13> Assessment and Plan Assessment and plan: -Vasopressor support (CCM and ID consulted, appreciate recommendations) -S/p dexamethasone and remdesivir therapy, contact/droplet isolation, remains on ventilation (wean as tolerated), vitamin C/vitamin D/zinc, anticoagulation per protocol, trend inflammatory markers -CT head with no acute process, supportive care -Wean mechanical ventilation as tolerated, VAP bundle -HD per nephrology -Amiodarone p.o. (remains in A. fib/a flutter) change to IV amiodarone, cardiology aware -Transfuse for hemaglobin less than 7, s/p 4 units PRBC during stay -Stat CBC, fibrinogen, PT/INR -GI consulted DVT prophylaxis: GI prophylaxis, heparin subcu, SCDs to bilateral LE while in bed Disposition: ICU ?placement ?trach/peg ?Ltach History Interval history: 59-year-old white male who was admitted for pneumonia secondary to Covid with associated respiratory failure and sepsis. Severe septic shock COVID-19 pneumonia Acute metabolic encephalopathy Acute hypoxic respiratory failure Acute kidney injury likely secondary to acute tubular necrosis which progressed to hemodialysis SVT/proximal atrial fibrillation Elevated LFTs Anemia likely due to severe sepsis had declining renal function Morbid obesity 06/18: Patient got intubated overnight. Patient was placed on BiPAP to maintain oxygenation with 100% FiO2 but apparently he found to take off his argueta which made his oxygen saturation go down at 60s/50s and patient was found altered mental status. Code met was called immediately. Patient was transferred to ICU and intubated, patient currently on 2 pressors, intubated with 100% FiO2, renal function noted to be decline, nephrology consulted. Discussed with [facility] physician Dr. Thompson and requested call back on Saturday. Poor prognosis, continue to monitor with aggressive supportive care. Also called family/ to update clinical status. 06/19: Repeat COVID test was positive. cont cefepime, remdesivir per ID recommendation. follow inflammatory markers, cbc, bmp. placed on heparin drip for atrial fib 06/20: Remains on mechanical ventilation, on 2 pressors, on heparin drip. discussed with and daughter by phone. Renal function declining. cont supportive care for now. 06/21: Renal function cont to decline, urine outpt sig decreased. started on lasix 80mg BID, plan to follow urine output, if no improvement patient need to start on HD. called and daughter today. updated all clinical details 06/22: Renal function continues to decline with uremia and hyperkalemia. Will need to proceed with hemodialysis. Nephrology discussed with the family and alexis sanchez agrees for the hemodialysis. Patient remains on pressor support and mechanical ventilation. Vas-Cath placed today by vascular started on hemodialysis today. 06/23: 2nd round of HD today, remains on 2 pressors. per RN not tolerating TF, has no record of BM since 06/18. start on stool softner. follow cbc/bmp. updated family( and daughter) by phone -all question answered to best of my knowle dge and to their satisfaction. Patient remains critically ill with a very poor prognosis. 06/24: Continue supportive care, Very poor prognosis, Field Health Officer to discuss with family in am due to the futility of the condition. 06/25/2020 continue supportive care very poor prognosis 06/26/2020 continue supportive care very poor prognosis family updated 06/27/2020 continue supportive care and weaning if possible 06/28/2020 continue supportive care, talk with at length 06/29: Resumed care. K level persistently high. give one dose of bicarbonate, plan for HD today, recheck k after HD. updated family by phone 06/30: updated family by phone. Patient remains on amiodarone drip and vasopressin. Getting HD at the bedside. Tolerating tube feeding at low rate. 07/01: Hb dropped to 6.4 today, transfuse one unit PRBC. patient is off pressor today, remains on amioderone. cont to monitor 07/02: Called patient and updated clinical details. Patient remains critically ill, still intubated. Patient's oxygen requirement and PEEP pressure has went down. Continue weaning protocol per critical care recommendation. Patient remains off pressor. Continue to wean off from amiodarone and plan to rate control with p.o. medications. Tolerating tube feeding. H&H stable today. Order for stool for occult blood. Monitor H&H and BMP. Continue to follow clinically 07/03: discussed with [place] physician today. Patient back on 100percent Fio2 since last night. planned for emergent Hd today. spiked fever, start IV Cefepime + Vancomycin renally dosed. Restarted Levophed today, remains on amiodarone drip. Patient family was updated by critical care attending today. 07/04: Patient has hemodialysis yesterday and also plan for today for volume overload and pulmonary edema. Patient currently on 80% FiO2. Remains on Levophed and amiodarone. Hemoglobin dropped to 6.7 without any evidence of active bleeding. LFTs remain stable. Repeat Covid test on 06/30 and 07/03 remain s positive. Will transfuse another unit of packed RBC today. Called family for update -explained family that patient is critically ill with very poor prognosis. 07/05: Patient on 70% FiO2 with PEEP of 14. h/h stable after transfusion. hyperkalemia improved, cont sodiumbicarbonate pill with TF. follow BMP. off levophed today, remains on amioderone. poor prognosis. 07/06: Patient remains on amiodarone drip, maintaining BP without any pressor. FiO2 requirement trended down to 60% with PEEP of 14. Continue to follow clinically. Plan to wean off amiodarone drip as tolerated. Wean off from sed ation as tolerated. Updated family. Patient remains critically ill with poor prognosis. 07/07: Called family for update. Off amiodarone drip today, patient also off pressor. FiO2 requirement trended up again to 80-100%. Continue to provide supportive care, monitor clinically. Having difficulty to wean off from the vent support. Patient is persistently positive for COVID-19 and COVID-19 antib ladan is nonreactive. Patient remains critically ill with very poor prognosis. 07/08: Continue supportive care. 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 Prognosis remains guarded to poor. Management per team. Critical care time 35-minute 07/09/20 patient is tachycardic. Heart rate 121. Hemoglobin 7.3. Patient is having hemodialysis. Continue supportive care. Patient having difficulty to wean off from the vent support. Prognosis is poor. Nephrology and cardiology follow-up. Recheck CBC BMP in the morning. Continue current management. patient seen and examined, remains on full ventilator patient is doing better. Patient is off pressor. heart rate 123. Hemoglobin 6.8 and hematocrit 20.7. WBC is 18.1. Continue supportive care. Patient having difficulty to wean off from the vent support. We will started on Zosyn 4.5 g IV every 8 hours. Will transfuse 1 unit of packed red blood cell. Prognosis is poor. Nephrology and cardiology follow up. Recheck CBC BMP in the morning 07/11: remains off vasopressor, h/h appropriately responded to 1 unit PRBC. HD today. Remain on MV with fiO2 at 70%. peep 10. No acute events reported overnight. 07/12: Patient remains in atrial fibrillation on the drone pilot, vasopressor support with Levophed and vasopressin, sedated with fentanyl and propofol. Vent settings: CMV 500/25/14/0.60. Patient remains hypercarbic on ABG 07/13: Patient remains on vasopressin, fentanyl and propofol with rectal tube in place. This morning some examination patient was on assist control 25/500/14/0.60. Patient received hemodialysis today. No acute events reported overnight. 07/14: Remains on vasopressin, fentanyl and propofol with tube in place. Rectal tube in place with noted blood clots, GI consulted, on 07/13 H/H dropped from 8.7/27 to 7.4/22 and anticoagulation discontinued. This morning I spoke to his who still wishes for the patient to remain a full code despite update with continued use of vasopressor (vasopressin), current ventilatory support (CMV 500/25/14/0.60) and recent development of rectal bleeding. Patient's family requests an update from [facility] and GI. Cardio changed amio from PO to IV given marshall vated HR Hospitalist Physical - Constitutional Vitals: Temp Pulse Resp BP Pulse Ox 97.4 F L 110 H 30 H 123/64 97 07/14/20 08:00 07/14/20 11:00 07/14/20 11:00 07/14/20 11:00 07/14/20 11:00 General appearance: Present: no acute distress, well-nourished - EENT Eyes: Present: EOM intact ENT: ulcerations - Neck Neck: Present: normal ROM - Respiratory Respiratory effort: normal Respiratory: bilateral: rhonchi - Cardiovascular Rhythm: irregularly irregular Heart Sounds: Present: S1 & S2. Absent: systolic murmur, diastolic murmur - Extremities Extremities: no ischemia, pulses intact, pulses symmetrical, normal temperature Extremity abnormal: edema - Peripheral Assessment Bilateral Generalized Edema Type: Pitting Edema Degree: 2+ Capillary Refill: < 3 seconds Skin Temperature: Cool Peripheral Pulses: within normal limits - Abdominal General gastrointestinal: soft, non-tender, non-distended, normal bowel sounds - Integumentary Integumentary: Present: warm, dry - Psychiatric Psychiatric: other (Sedated) - Neurologic Neurologic: moves all extremities, other (Sedated) HEART Score - HEART Score Troponin: Troponin T < 0.010 ng/mL (0.00-0.029) 06/17/20 12:33 Results - Labs CBC & Chem 7: 07/13/20 16:47 07/13/20 15:12 Labs: Laboratory Last Values WBC 27.5 K/mm3 (4.5-11.0) H 07/13/20 08:48 RBC 3.03 M/mm3 (3.65-5.03) L 07/13/20 08:48 Hgb 7.4 gm/dl (11.8-15.2) L 07/13/20 16:47 Hct 22.1 % (35.5-45.6) L 07/13/20 16:47 MCV 89 fl (84-94) 07/13/20 08:48 MCH 29 pg (28-32) 07/13/20 08:48 MCHC 32 % (32-34) 07/13/20 08:48 RDW 18.0 % (13.2-15.2) H 07/13/20 08:48 Plt Count 364 K/mm3 (140-440) 07/13/20 08:48 Lymph % (Auto) 5.6 % (13.4-35.0) L 07/12/20 03:40 Benson % (Auto) 7.4 % (0.0-7.3) H 07/12/20 03:40 Eos % (Auto) 2.8 % (0.0-4.3) 07/12/20 03:40 Baso % (Auto) 0.3 % (0.0-1.8) 07/12/20 03:40 Lymph # (Auto) 1.4 K/mm3 (1.2-5.4) 07/12/20 03:40 Benson # (Auto) 1.8 K/mm3 (0.0-0.8) H 07/12/20 03:40 Eos # (Auto) 0.7 K/mm3 (0.0-0.4) H 07/12/20 03:40 Baso # (Auto) 0.1 K/mm3 (0.0-0.1) 07/12/20 03:40 Add Manual Diff Complete 07/11/20 06:52 Total Counted 100 07/11/20 06:52 Seg Neutrophils % 83.9 % (40.0-70.0) H 07/12/20 03:40 Seg Neuts % (Manual) 65.0 % (40.0-70.0) 07/11/20 06:52 Band Neutrophils % 7.0 % 07/11/20 06:52 Lymphocytes % (Manual) 1.0 % (13.4-35.0) L 07/11/20 06:52 Reactive Lymphs % (Man) 1.0 % 06/23/20 04:00 Monocytes % (Manual) 11.0 % (0.0-7.3) H 07/11/20 06:52 Eosinophils % (Manual) 4.0 % (0.0-4.3) 07/11/20 06:52 Metamyelocytes % 12.0 % 07/11/20 06:52 Myelocytes % 2.0 % 07/10/20 03:55 Nucleated RBC % Not Reportable 07/11/20 06:52 Seg Neutrophils # 20.4 K/mm3 (1.8-7.7) H 07/12/20 03:40 Seg Neutrophils # Man 16.9 K/mm3 (1.8-7.7) H 07/11/20 06:52 Band Neutrophils # 1.8 K/mm3 07/11/20 06:52 Lymphocytes # (Manual) 0.3 K/mm3 (1.2-5.4) L 07/11/20 06:52 Abs React Lymphs (Man) 0.0 K/mm3 07/11/20 06:52 Monocytes # (Manual) 2.9 K/mm3 (0.0-0.8) H 07/11/20 06:52 Eosinophils # (Manual) 1.0 K/mm3 (0.0-0.4) H 07/11/20 06:52 Basophils # (Manual) 0.0 K/mm3 (0.0-0.1) 07/11/20 06:52 Metamyelocytes # 3.1 K/mm3 07/11/20 06:52 Myelocytes # 0.0 K/mm3 07/11/20 06:52 Promyelocytes # 0.0 K/mm3 07/11/20 06:52 Blast Cells # 0.0 K/mm3 07/11/20 06:52 Pathologist Review Not Reportable 06/26/20 05:47 WBC Morphology Not Reportable 07/11/20 06:52 Hypersegmented Neuts Not Reportable 07/11/20 06:52 Hyposegmented Neuts Not Reportable 07/11/20 06:52 Hypogranular Neuts Not Reportable 07/11/20 06:52 Smudge Cells Not Reportable 07/11/20 06:52 Toxic Granulation 1+ 07/11/20 06:52 Toxic Vacuolation Not Reportable 07/11/20 06:52 Dohle Bodies Not Reportable 07/11/20 06:52 Pelger-Huet Anomaly Not Reportable 07/11/20 06:52 Carlito Rods Not Reportable 07/11/20 06:52 Platelet Estimate Consistent w auto 07/11/20 06:52 Clumped Platelets Not Reportable 07/11/20 06:52 Plt Clumps, EDTA Not Reportable 07/11/20 06:52 Large Platelets Few 07/11/20 06:52 Giant Platelets Not Reportable 07/11/20 06:52 Platelet Satelliting Not Reportable 07/11/20 06:52 Plt Morphology Comment Not Reportable 07/11/20 06:52 RBC Morphology Not Reportable 07/11/20 06:52 Dimorphic RBCs Not Reportable 07/11/20 06:52 Polychromasia Not Reportable 07/11/20 06:52 Hypochromasia Not Reportable 07/11/20 06:52 Poikilocytosis Not Reportable 07/11/20 06:52 Anisocytosis 1+ 07/11/20 06:52 Microcytosis Not Reportable 07/11/20 06:52 Macrocytosis Not Reportable 07/11/20 06:52 Spherocytes Not Reportable 07/11/20 06:52 Pappenheimer Bodies Not Reportable 07/11/20 06:52 Sickle Cells Not Reportable 07/11/20 06:52 Target Cells Not Reportable 07/11/20 06:52 Tear Drop Cells Not Reportable 07/11/20 06:52 Ovalocytes Not Reportable 07/11/20 06:52 Stomatocytes Rare 07/10/20 03:55 Helmet Cells Not Reportable 07/11/20 06:52 Brothers-Holly Bodies Not Reportable 07/11/20 06:52 Ada Rings Not Reportable 07/11/20 06:52 [place] Cells Not Reportable 07/11/20 06:52 Bite Cells Not Reportable 07/11/20 06:52 Crenated Cell Not Reportable 07/11/20 06:52 Elliptocytes Not Reportable 07/11/20 06:52 Acanthocytes (Spur) Not Reportable 07/11/20 06:52 Rouleaux Not Reportable 07/11/20 06:52 Hemoglobin C Crystals Not Reportable 07/11/20 06:52 Schistocytes Not Reportable 07/11/20 06:52 Malaria parasites Not Reportable 07/11/20 06:52 Victoriano Bodies Not Reportable 07/11/20 06:52 Hem Pathologist Commnt No 07/11/20 06:52 PT 17.4 Sec. (12.2-14.9) H 06/26/20 05:47 INR 1.44 (0.87-1.13) H 06/26/20 05:47 APTT 28.5 Sec. (24.2-36.6) 06/26/20 05:47 D-Dimer 6608.00 ng/mlDDU (0-234) H 07/03/20 14:50 Heparin Anti-Xa Level < 0.10 U.I./ml (0.3-0.7) L 06/26/20 01:30 ABG pH 7.332 (7.320-7.450) 07/14/20 04:25 POC ABG pCO2 46.7 mmHg (32.0-48.0) 07/14/20 04:25 ABG pCO2 56.4 mm Hg 07/05/20 04:30 POC ABG pO2 87.6 mmHg (83-108) 07/14/20 04:25 ABG pO2 151.9 mm Hg (80.0-90.0) H 07/05/20 04:30 POC ABG HCO3 24.2 07/14/20 04:25 ABG HCO3 26.8 mmol/L (20.0-26.0) H 07/05/20 04:30 ABG O2 Saturation 98.7 % (95.0-99.0) 07/05/20 04:30 ABG O2 Content 5.0 (0.0-44) 07/04/20 05:20 POC ABG Base Excess -1.8 07/14/20 04:25 ABG Base Excess 0.1 mmol/L (-2.0-3.0) 07/05/20 04:30 ABG Hemoglobin 8.9 (12.0-17.5) L 07/14/20 04:25 ABG Oxyhemoglobin 94.2 (94-98) 07/14/20 04:25 ABG Carboxyhemoglobin 1.7 % (0.0-5.0) 07/05/20 04:30 ABG Methemoglobin 0.3 (0.0-1.5) 07/14/20 04:25 ABG Sodium 133.1 mmol/L (136.0-145.0) L 07/14/20 04:25 ABG Potassium 4.7 mmol/L (3.40-4.50) H 07/14/20 04:25 ABG Chloride 101.0 mmol/L (98-107) 07/14/20 04:25 ABG Glucose 113 mg/dL (65-95) H 07/14/20 04:25 Oxyhemoglobin 96.5 % (95.0-99.0) 07/05/20 04:30 Carboxyhemoglobin 1.3 (0.5-1.5) 07/14/20 04:25 FiO2 60 07/14/20 04:25 Sodium 137 mmol/L (137-145) 07/13/20 15:12 Potassium 5.5 mmol/L (3.6-5.0) H 07/13/20 15:12 Chloride 99.8 mmol/L (98-107) 07/13/20 15:12 Carbon Dioxide 23 mmol/L (22-30) 07/13/20 15:12 Anion Gap 20 mmol/L 07/13/20 15:12 BUN 88 mg/dL (9-20) H 07/13/20 15:12 Creatinine 3.8 mg/dL (0.8-1.3) H 07/13/20 15:12 Estimated GFR 20 ml/min 07/13/20 15:12 BUN/Creatinine Ratio 23 % 07/13/20 15:12 Glucose 133 mg/dL (75-100) H 07/13/20 15:12 POC Glucose 90 mg/dL (70-105) 07/14/20 05:52 Lactic Acid 1.40 mmol/L (0.7-2.0) 07/13/20 08:48 Calcium 7.5 mg/dL (8.4-10.2) L 07/13/20 15:12 Phosphorus 9.40 mg/dL (2.5-4.5) H 06/30/20 03:50 Magnesium 2.70 mg/dL (1.7-2.3) H 06/18/20 20:33 Ferritin 1171.0 ng/mL (30.0-300.0) H 07/03/20 14:50 Total Bilirubin 0.70 mg/dL (0.1-1.2) 07/13/20 06:59 Direct Bilirubin 0.5 mg/dL (0-0.2) H 07/05/20 08:21 Indirect Bilirubin 0.1 mg/dL 07/05/20 08:21 AST 61 units/L (5-40) H 07/13/20 06:59 ALT 85 units/L (7-56) H 07/13/20 06:59 Alkaline Phosphatase 144 units/L (35-129) H 07/13/20 06:59 Lactate Dehydrogenase 525 units/L (91-180) H 07/03/20 14:50 Total Creatine Kinase 618 units/L (55-170) H 06/29/20 Unknown Troponin T < 0.010 ng/mL (0.00-0.029) 06/17/20 12:33 C-Reactive Protein 31.50 mg/dL (0.00-1.30) H 07/03/20 14:50 Total Protein 5.4 g/dL (6.3-8.2) L 07/13/20 06:59 Albumin 2.0 g/dL (3.9-5) L 07/13/20 06:59 Albumin/Globulin Ratio 0.6 % 07/13/20 06:59 Triglycerides 246 mg/dL (2-149) H 07/12/20 04:00 Procalcitonin 6.05 ng/mL (<0.15) 07/13/20 06:59 Arterial Blood Glucose 113 mg/dL (65-95) H 07/14/20 04:25 Arterial Blood Ionized Calcium 4.4 mg/dL (4.6-5.3) L 07/14/20 04:25 Urine Color Yellow (Yellow) 06/17/20 15:57 Urine Turbidity Clear (Clear) 06/17/20 15:57 Urine pH 6.0 (5.0-7.0) 06/17/20 15:57 Ur Specific Pinson 1.019 (1.003-1.030) 06/17/20 15:57 Urine Protein 30 mg/dl mg/dL (Negative) 06/17/20 15:57 Urine Glucose (UA) Neg mg/dL (Negative) 06/17/20 15:57 Urine Ketones Neg mg/dL (Negative) 06/17/20 15:57 Urine Blood Sm (Negative) 06/17/20 15:57 Urine Nitrite Neg (Negative) 06/17/20 15:57 Ur Reducing Substances Not Reportable 06/17/20 15:57 Urine Bilirubin Neg (Negative) 06/17/20 15:57 Urine Ictotest Not Reportable 06/17/20 15:57 Urine Urobilinogen < 2.0 mg/dL (<2.0) 06/17/20 15:57 Ur Leukocyte Esterase Neg (Negative) 06/17/20 15:57 Urine WBC (Auto) 1.0 /HPF (0.0-6.0) 06/17/20 15:57 Urine RBC (Auto) 2.0 /HPF (0.0-6.0) 06/17/20 15:57 Urine Mucus Few /HPF 06/17/20 15:57 Urine Creatinine 192.4 mg/dL (0.1-20.0) H 06/18/20 15:00 Urine Sodium 28 mmol/L 06/18/20 15:00 Urine Chloride 31.1 mmolL (110-250) L 06/18/20 15:00 Nasal Screen MRSA (PCR) Negative (Negative) 06/19/20 10:38 Vancomycin Trough 22.7 ug/mL (5.0-20.0) H 06/20/20 08:25 Coronavirus (PCR) Positive (Negative) A 07/03/20 10:10 Hepatitis A IgM Ab Non-reactive (NonReactive) 06/22/20 17:00 Hep Bs Antigen Non-reactive (Negative) 06/22/20 17:00 Hep B Core IgM Ab Non-reactive (NonReactive) 06/22/20 17:00 Hepatitis C Antibody Non-reactive (NonReactive) 06/22/20 17:00 SARS-CoV-2 IgG Ab Nonreactive (NonReactive) 07/04/20 05:20 Blood Type A POSITIVE 07/13/20 16:46 Antibody Screen Negative 07/13/20 16:46 Crossmatch See Detail 07/13/20 16:46 - Diagnostic Impressions Diagnostic Impressions: Echocardiogram 06/29/20 06:00 Transthoracic Echocardiogram Indication: A-fib BP: 105/47 HR: 99 Conclusions *The study is technically very difficult and limited due to poor acoustic windows. *Global left ventricular wall motion and contractility are within normal limits. *The estimated ejection fraction is 55-60%. *There is no pericardial effusion. Findings Procedure Info: The study quality is technically difficult. The study is technically limited due to poor acoustic windows. Left Ventricle: Global left ventricular wall motion and contractility are within normal limits. Global left ventricular systolic function is normal. The estimated ejection fraction is 55-60%. Left Atrium: The left atrium is not well visualized. Right Ventricle: The right ventricle is not well visualized. Right Atrium: The right atrium is not well visualized. Aortic Valve: The aortic valve is not well visualized. Mitral Valve: The mitral valve is not well visualized. Tricuspid Valve: The tricuspid valve is not well visualized. Pulmonic Valve: The pulmonic valve is not well visualized. Pericardium: There is no pericardial effusion. Venous: There is no change in the dimension of the inferior vena cava with respiration consistent with markedly increased right atrial pressure. Newell/IV: Voiding Method Incontinent Active Medications - Current Medications Current Medications: Generic Name Dose Route Start Last Admin Trade Name Freq PRN Reason Stop Dose Admin Acetaminophen 650 mg 06/17/20 14:17 07/03/20 09:16 Acetaminophen 325 Mg Tab PO 650 mg Q4H PRN Administration Pain MILD(1-3)/Fever >100.5/ROBERTS Amiodarone HCl 200 mg 07/08/20 12:30 07/14/20 09:30 Amiodarone 200 Mg Tab PO 200 mg BID CONNOR Administration Lipase/Protease/Amylase 1 each 06/19/20 12:15 Lipase 10,500/Protease 25,000/Amylase 43,750 (Units) Dr Cap FEEDTUBE PRN PRN For Clogged Feeding Tube Ascorbic Acid 250 mg 06/17/20 22:00 07/14/20 09:30 Ascorbic Acid 250 Mg Tab PO 250 mg BID CONNOR Administration Cholecalciferol 1,000 unit 06/18/20 10:00 07/14/20 09:30 Cholecalciferol (Vit D3) 1000 Unit (25 Mcg) Tab PO 1,000 unit DAILY CONNOR Administration Dexamethasone 2 mg 07/14/20 10:00 07/14/20 09:31 Dexamethasone 4 Mg/Ml Vial IV 07/15/20 10:01 2 mg DAILY CONNOR Administration Docusate Sodium 100 mg 06/23/20 15:00 07/14/20 09:30 Docusate Sodium 100 Mg/10 Ml Oral Liqd FEEDTUBE 100 mg BID CONNOR Administration Famotidine 20 mg 07/13/20 10:00 07/14/20 09:30 Famotidine 20 Mg Tab PO 20 mg DAILY CONNOR Administration Fentanyl 50 mcg 06/18/20 01:02 07/09/20 00:20 Fentanyl 100 Mcg/2 Ml Inj IV 50 mcg Q10MIN PRN Administration ANALGESIA Heparin Sodium (Porcine) 5,000 unit 06/22/20 12:53 06/30/20 13:36 Heparin 10,000 Unit/1 Ml Vial IV 5,000 unit PAM PRN Administration hemodialysis Hydrophilic Ointment 1 applic 06/17/20 22:52 07/12/20 20:22 Lip Therapy Vaseline TP 1 applic Q2HR PRN Administration Dry Lips Propofol 1,000 mg in 100 mls @ 3.402 mls/hr 06/18/20 01:00 07/14/20 09:31 Diprivan 10 Mg/Ml IV 10 mcg/kg/min TITR CONNOR 6.804 mls/hr Administration Protocol 5 MCG/KG/MIN Fentanyl Citrate 2,000 mcg in 100 mls @ 8 mls/hr 06/18/20 02:00 07/14/20 07:45 Fentanyl Drip Premix IV 3 mcg/kg/hr TITR CONNOR 17.01 mls/hr Administration Protocol 1 MCG/KG/HR Sodium Chloride 500 mls @ 1 mls/hr 06/18/20 09:38 06/19/20 21:37 Nacl 0.9% 500 Ml IV 0 mls/hr DIRECT PRN Infusion ARTERIAL LINE FLUSH Norepinephrine 4 mg in 250 mls @ 7.5 mls/hr 07/08/20 02:06 07/13/20 18:03 Levophed Drip 4 Mg/Ns 250 Ml IV 0 mcg/min TITR CONNOR 0 mls/hr Titration Protocol 2 MCG/MIN Vasopressin 20 unit/ Sodium 101 mls @ 9.09 mls/hr 07/11/20 11:00 07/14/20 08:35 Chloride IV 0.03 units/min TITR CONNOR 9.09 mls/hr Administration Protocol 0.03 UNITS/MIN Sodium Chloride 100 mls @ 999 mls/hr 07/12/20 10:00 Nacl 0.9% IV PAM PRN Hypotension Sodium Chloride 500 mls @ 0 mls/hr 07/13/20 16:46 Nacl 0.9% 500 Ml IV 07/14/20 16:45 ONCE CONNOR As Directed Insulin Human Regular 0 units 06/18/20 12:00 07/14/20 06:15 Insulin Regular, Human 100 Units/1 Ml SUB-Q Not Given Q6HR [facility] Protocol Multi-Ingred Cream/Lotion/Oil/Oint 1 applic 06/17/20 22:52 07/12/20 20:22 Mineral Oil/Petrolatum, White Ophth Oint 3.5 Gm OU 1 applic Q4HR PRN Administration Dry Eye(s) Ondansetron HCl 4 mg 06/17/20 14:17 Ondansetron 4 Mg/2 Ml Inj IV Q8H PRN Nausea And Vomiting Polyethylene Glycol 17 gm 06/23/20 15:00 07/14/20 09:30 Polyethylene Glycol 3350 17 Gm Powder PO 17 gm QDAY CONNOR Administration Quetiapine Fumarate 200 mg 06/28/20 13:00 07/14/20 09:30 Quetiapine 200 Mg Tab PO 200 mg BID CONNOR Administration Simple Syrup 15 ml 06/19/20 12:15 Simple Syrup 15 Ml FEEDTUBE PRN PRN Hypoglycemia Simple Syrup 30 ml 06/19/20 12:15 Simple Syrup 15 Ml FEEDTUBE PRN PRN Hypoglycemia Sodium Bicarbonate 325 mg 06/19/20 12:15 07/11/20 20:00 Sodium Bicarbonate 325 Mg Tab FEEDTUBE 325 mg PRN PRN Administration For Clogged Feeding Tube Sodium Bicarbonate 650 mg 07/04/20 10:00 07/14/20 07:46 Sodium Bicarbonate 650 Mg Tab PO 650 mg TID CONNOR Administration Sodium Chloride 10 ml 06/17/20 22:00 07/14/20 09:32 Sodium Chloride 0.9% 10 Ml Flush Syringe IV 10 ml BID CONNOR Administration Sodium Chloride 10 ml 06/17/20 14:17 Sodium Chloride 0.9% 10 Ml Flush Syringe IV PRN PRN LINE FLUSH Sodium Polystyrene Sulfonate 15 gm 07/03/20 11:19 07/05/20 10:36 Sodium Polystyrene 15 Gm/60 Ml Oral Liqd PO 15 gm Q6HR PRN Administration Hyperkalemia Zinc Sulfate 220 mg 06/17/20 22:00 07/14/20 09:30 Zinc Sulfate 220 Mg Cap PO 220 mg BID CONNOR Administration Nutrition/Malnutrition Assess - Dietary Evaluation Nutrition/Malnutrition Findings: Nutrition Notes Start: 06/18/20 10:28 Freq: Status: Active Protocol: Document 07/12/20 11:11 AL (Rec: 07/12/20 11:15 AL [id number]) Co-Sign 07/12/20 11:11 LP Nutrition Notes Initial or Follow up Reassessment Current Diagnosis Acute Kidney Injury,Sepsis, Respiratory Failure Other Pertinent Diagnosis COVID-19 (+), pneu Current Diet Nepro 1.8 at 40ml/hr Labs/Tests Na 134 BUN 79 Cr 3.7 Pertinent Medications Propofol at 6.8 ml/hr (180 kcal) Levophed Vasopressin Height 6 ft Weight 160 kg [place] Body Weight (kg) 80.90 BMI 47.8 Weight change and time frame Wt change of 30 kg noted. Pt on HD Weight Status Obese Subjective/Other Information FU for stable TF. Pt tolerating TF at 40 ml/hr ( goal rate). Percent of energy/protein needs met: 89%/48% Burn Absent Trauma Absent Current % PO Negligible Minimum of two criteria No physical signs of malnutrition #2 Nutrition Diagnosis Overweight/obesity Diagnosis Progress(for reassessment Continues documentation) #1 Nutrition Diagnosis Inadequate oral intake Diagnosis Progress(for reassessment Continues documentation) Is patient on ventilator? Yes Is Patient Ambulatory and/or Out of Bed No REE-([facility] Je[facility]-confined to bed) 2929.632 Kcal/Kg value to use for calculation 12 Approximate Energy Requirements Using 1920 kcal/Kg Calculation Used for Recommendations Kcal/kg Additional Notes Protein needs up to >2 g/kg IBW: 162 g Fluid needs: 1,000 ml + output Nutrition Intervention Change Diet Order: TF Nutrition Support: Nepro 1.8 at 50 ml/hr Flush 215 ml q4h Kcal 2,160 Protein (gm) 97 Fluid (mL) 872 Goal #1 Tolerate TF at goal rate Goal #2 Meet energy and protein needs as best as possible. Anticipated Discharge Needs: Unable to determine at the time. Follow-Up By: 07/19/20 Additional Comments F/U for TF tolerance and vent status <ZEESHAN CHAIDEZ - Last Filed: 07/15/20 08:56> Assessment and Plan Assessment and plan: I saw and evaluated the patient. I agree with the findings and the plan of care as documented in the Nurse Practitioner's~note, with the following corrections and additions. The high probability of a clinically significant, sudden or life threatening deterioration of the [pulmonary, hematology, multiple organs] system(s) required my full and direct attention, intervention and personal management. The aggregate critical care time was [35] minutes. This time is in addition to time spent performing reported procedures but includes the following: [x] Data Review and interpretation [x] Patient assessment and monitoring of vital signs [x] Documentation [x] Medication orders and management Hospitalist Physical - Constitutional Vitals: Temp Pulse Resp BP Pulse Ox 99.3 F 138 H 31 H 157/74 93 07/15/20 07:52 07/15/20 08:15 07/15/20 08:15 07/15/20 08:15 07/15/20 08:15 HEART Score - HEART Score Troponin: Troponin T < 0.010 ng/mL (0.00-0.029) 06/17/20 12:33 Results - Labs CBC & Chem 7: 07/14/20 20:20 07/13/20 15:12 Labs: Laboratory Last Values WBC 30.1 K/mm3 (4.5-11.0) H 07/14/20 16:44 RBC 2.60 M/mm3 (3.65-5.03) L 07/14/20 16:44 Hgb 5.6 gm/dl (11.8-15.2) L* 07/14/20 20:20 Hct 18.1 % (35.5-45.6) L* 07/14/20 20:20 MCV 89 fl (84-94) 07/14/20 16:44 MCH 28 pg (28-32) 07/14/20 16:44 MCHC 32 % (32-34) 07/14/20 16:44 RDW 18.0 % (13.2-15.2) H 07/14/20 16:44 Plt Count 356 K/mm3 (140-440) 07/14/20 16:44 Lymph % (Auto) 5.6 % (13.4-35.0) L 07/12/20 03:40 Benson % (Auto) 7.4 % (0.0-7.3) H 07/12/20 03:40 Eos % (Auto) 2.8 % (0.0-4.3) 07/12/20 03:40 Baso % (Auto) 0.3 % (0.0-1.8) 07/12/20 03:40 Lymph # (Auto) 1.4 K/mm3 (1.2-5.4) 07/12/20 03:40 Benson # (Auto) 1.8 K/mm3 (0.0-0.8) H 07/12/20 03:40 Eos # (Auto) 0.7 K/mm3 (0.0-0.4) H 07/12/20 03:40 Baso # (Auto) 0.1 K/mm3 (0.0-0.1) 07/12/20 03:40 Add Manual Diff Complete 07/14/20 16:44 Total Counted 100 07/14/20 16:44 Seg Neutrophils % Hot Metal 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 Operator 07/14/20 16:44 Seg Neuts % (Manual) 78.0 % (40.0-70.0) H 07/14/20 16:44 Band Neutrophils % 7.0 % 07/14/20 16:44 Lymphocytes % (Manual) 5.0 % (13.4-35.0) L 07/14/20 16:44 Reactive Lymphs % (Man) 1.0 % 06/23/20 04:00 Monocytes % (Manual) 3.0 % (0.0-7.3) 07/14/20 16:44 Eosinophils % (Manual) 4.0 % (0.0-4.3) 07/11/20 06:52 Metamyelocytes % 7.0 % 07/14/20 16:44 Myelocytes % 2.0 % 07/10/20 03:55 Nucleated RBC % Not Reportable 07/14/20 16:44 Seg Neutrophils # 20.4 K/mm3 (1.8-7.7) H 07/12/20 03:40 Seg Neutrophils # Man 23.5 K/mm3 (1.8-7.7) H 07/14/20 16:44 Band Neutrophils # 2.1 K/mm3 07/14/20 16:44 Lymphocytes # (Manual) 1.5 K/mm3 (1.2-5.4) 07/14/20 16:44 Abs React Lymphs (Man) 0.0 K/mm3 07/14/20 16:44 Monocytes # (Manual) 0.9 K/mm3 (0.0-0.8) H 07/14/20 16:44 Eosinophils # (Manual) 0.0 K/mm3 (0.0-0.4) 07/14/20 16:44 Basophils # (Manual) 0.0 K/mm3 (0.0-0.1) 07/14/20 16:44 Metamyelocytes # 2.1 K/mm3 07/14/20 16:44 Myelocytes # 0.0 K/mm3 07/14/20 16:44 Promyelocytes # 0.0 K/mm3 07/14/20 16:44 Blast Cells # 0.0 K/mm3 07/14/20 16:44 Pathologist Review Not Reportable 06/26/20 05:47 WBC Morphology Not Reportable 07/14/20 16:44 Hypersegmented Neuts Not Reportable 07/14/20 16:44 Hyposegmented Neuts Not Reportable 07/14/20 16:44 Hypogranular Neuts Not Reportable 07/14/20 16:44 Smudge Cells Not Reportable 07/14/20 16:44 Toxic Granulation Not Reportable 07/14/20 16:44 Toxic Vacuolation Not Reportable 07/14/20 16:44 Dohle Bodies Not Reportable 07/14/20 16:44 Pelger-Huet Anomaly Not Reportable 07/14/20 16:44 Carlito Rods Not Reportable 07/14/20 16:44 Platelet Estimate Consistent w auto 07/14/20 16:44 Clumped Platelets Not Reportable 07/14/20 16:44 Plt Clumps, EDTA Not Reportable 07/14/20 16:44 Large Platelets Rare 07/14/20 16:44 Giant Platelets Not Reportable 07/14/20 16:44 Platelet Satelliting Not Reportable 07/14/20 16:44 Plt Morphology Comment Not Reportable 07/14/20 16:44 RBC Morphology Not Reportable 07/14/20 16:44 Dimorphic RBCs Not Reportable 07/14/20 16:44 Polychromasia Rare 07/14/20 16:44 Hypochromasia Not Reportable 07/14/20 16:44 Poikilocytosis Not Reportable 07/14/20 16:44 Anisocytosis Not Reportable 07/14/20 16:44 Microcytosis Not Reportable 07/14/20 16:44 Macrocytosis Not Reportable 07/14/20 16:44 Spherocytes Not Reportable 07/14/20 16:44 Pappenheimer Bodies Not Reportable 07/14/20 16:44 Sickle Cells Not Reportable 07/14/20 16:44 Target Cells Not Reportable 07/14/20 16:44 Tear Drop Cells Rare 07/14/20 16:44 Ovalocytes Rare 07/14/20 16:44 Stomatocytes Rare 07/10/20 03:55 Helmet Cells Not Reportable 07/14/20 16:44 Brothers-Holly Bodies Not Reportable 07/14/20 16:44 Ada Rings Not Reportable 07/14/20 16:44 [place] Cells Not Reportable 07/14/20 16:44 Bite Cells Not Reportable 07/14/20 16:44 Crenated Cell Not Reportable 07/14/20 16:44 Elliptocytes Not Reportable 07/14/20 16:44 Acanthocytes (Spur) Not Reportable 07/14/20 16:44 Rouleaux Not Reportable 07/14/20 16:44 Hemoglobin C Crystals Not Reportable 07/14/20 16:44 Schistocytes Not Reportable 07/14/20 16:44 Malaria parasites Not Reportable 07/14/20 16:44 Victoriano Bodies Not Reportable 07/14/20 16:44 Hem Pathologist Commnt No 07/14/20 16:44 PT 15.6 Sec. (12.2-14.9) H 07/14/20 16:44 INR 1.26 (0.87-1.13) H 07/14/20 16:44 APTT 28.5 Sec. (24.2-36.6) 06/26/20 05:47 Fibrinogen 211 mg/dl (211-480) 07/14/20 16:44 D-Dimer 6608.00 ng/mlDDU (0-234) H 07/03/20 14:50 Heparin Anti-Xa Level < 0.10 U.I./ml (0.3-0.7) L 06/26/20 01:30 ABG pH 7.409 (7.320-7.450) 07/15/20 04:13 POC ABG pCO2 38.5 mmHg (32.0-48.0) 07/15/20 04:13 ABG pCO2 56.4 mm Hg 07/05/20 04:30 POC ABG pO2 86.7 mmHg (83-108) 07/15/20 04:13 ABG pO2 151.9 mm Hg (80.0-90.0) H 07/05/20 04:30 POC ABG HCO3 23.8 07/15/20 04:13 ABG HCO3 26.8 mmol/L (20.0-26.0) H 07/05/20 04:30 ABG O2 Saturation 98.7 % (95.0-99.0) 07/05/20 04:30 ABG O2 Content 5.0 (0.0-44) 07/04/20 05:20 POC ABG Base Excess -0.8 07/15/20 04:13 ABG Base Excess 0.1 mmol/L (-2.0-3.0) 07/05/20 04:30 ABG Hemoglobin 6.0 (12.0-17.5) L 07/15/20 04:13 ABG Oxyhemoglobin 95.1 (94-98) 07/15/20 04:13 ABG Carboxyhemoglobin 1.7 % (0.0-5.0) 07/05/20 04:30 ABG Methemoglobin 0.3 (0.0-1.5) 07/15/20 04:13 ABG Sodium 130.3 mmol/L (136.0-145.0) L 07/15/20 04:13 ABG Potassium 5.8 mmol/L (3.40-4.50) H 07/15/20 04:13 ABG Chloride 99.0 mmol/L (98-107) 07/15/20 04:13 ABG Glucose 122 mg/dL (65-95) H 07/15/20 04:13 Oxyhemoglobin 96.5 % (95.0-99.0) 07/05/20 04:30 Carboxyhemoglobin 1.0 (0.5-1.5) 07/15/20 04:13 FiO2 60.0 07/15/20 04:13 Sodium 137 mmol/L (137-145) 07/13/20 15:12 Potassium 5.5 mmol/L (3.6-5.0) H 07/13/20 15:12 Chloride 99.8 mmol/L (98-107) 07/13/20 15:12 Carbon Dioxide 23 mmol/L (22-30) 07/13/20 15:12 Anion Gap 20 mmol/L 07/13/20 15:12 BUN 88 mg/dL (9-20) H 07/13/20 15:12 Creatinine 3.8 mg/dL (0.8-1.3) H 07/13/20 15:12 Estimated GFR 20 ml/min 07/13/20 15:12 BUN/Creatinine Ratio 23 % 07/13/20 15:12 Glucose 133 mg/dL (75-100) H 07/13/20 15:12 POC Glucose 126 mg/dL (70-105) H 07/14/20 23:45 Lactic Acid 1.40 mmol/L (0.7-2.0) 07/13/20 08:48 Calcium 7.5 mg/dL (8.4-10.2) L 07/13/20 15:12 Phosphorus 9.40 mg/dL (2.5-4.5) H 06/30/20 03:50 Magnesium 2.70 mg/dL (1.7-2.3) H 06/18/20 20:33 Ferritin 1171.0 ng/mL (30.0-300.0) H 07/03/20 14:50 Total Bilirubin 0.70 mg/dL (0.1-1.2) 07/13/20 06:59 Direct Bilirubin 0.5 mg/dL (0-0.2) H 07/05/20 08:21 Indirect Bilirubin 0.1 mg/dL 07/05/20 08:21 AST 61 units/L (5-40) H 07/13/20 06:59 ALT 85 units/L (7-56) H 07/13/20 06:59 Alkaline Phosphatase 144 units/L (35-129) H 07/13/20 06:59 Lactate Dehydrogenase 525 units/L (91-180) H 07/03/20 14:50 Total Creatine Kinase 618 units/L (55-170) H 06/29/20 Unknown Troponin T < 0.010 ng/mL (0.00-0.029) 06/17/20 12:33 C-Reactive Protein 31.50 mg/dL (0.00-1.30) H 07/03/20 14:50 Total Protein 5.4 g/dL (6.3-8.2) L 07/13/20 06:59 Albumin 2.0 g/dL (3.9-5) L 07/13/20 06:59 Albumin/Globulin Ratio 0.6 % 07/13/20 06:59 Triglycerides 246 mg/dL (2-149) H 07/12/20 04:00 Procalcitonin 6.05 ng/mL (<0.15) 07/13/20 06:59 Arterial Blood Glucose 122 mg/dL (65-95) H 07/15/20 04:13 Arterial Blood Ionized Calcium 4.2 mg/dL (4.6-5.3) L 07/15/20 04:13 Urine Color Yellow (Yellow) 06/17/20 15:57 Urine Turbidity Clear (Clear) 06/17/20 15:57 Urine pH 6.0 (5.0-7.0) 06/17/20 15:57 Ur Specific Pinson 1.019 (1.003-1.030) 06/17/20 15:57 Urine Protein 30 mg/dl mg/dL (Negative) 06/17/20 15:57 Urine Glucose (UA) Neg mg/dL (Negative) 06/17/20 15:57 Urine Ketones Neg mg/dL (Negative) 06/17/20 15:57 Urine Blood Sm (Negative) 06/17/20 15:57 Urine Nitrite Neg (Negative) 06/17/20 15:57 Ur Reducing Substances Not Reportable 06/17/20 15:57 Urine Bilirubin Neg (Negative) 06/17/20 15:57 Urine Ictotest Not Reportable 06/17/20 15:57 Urine Urobilinogen < 2.0 mg/dL (<2.0) 06/17/20 15:57 Ur Leukocyte Esterase Neg (Negative) 06/17/20 15:57 Urine WBC (Auto) 1.0 /HPF (0.0-6.0) 06/17/20 15:57 Urine RBC (Auto) 2.0 /HPF (0.0-6.0) 06/17/20 15:57 Urine Mucus Few /HPF 06/17/20 15:57 Urine Creatinine 192.4 mg/dL (0.1-20.0) H 06/18/20 15:00 Urine Sodium 28 mmol/L 06/18/20 15:00 Urine Chloride 31.1 mmolL (110-250) L 06/18/20 15:00 Nasal Screen MRSA (PCR) Negative (Negative) 06/19/20 10:38 Vancomycin Trough 22.7 ug/mL (5.0-20.0) H 06/20/20 08:25 Coronavirus (PCR) Positive (Negative) A 07/03/20 10:10 Hepatitis A IgM Ab Non-reactive (NonReactive) 06/22/20 17:00 Hep Bs Antigen Non-reactive (Negative) 06/22/20 17:00 Hep B Core IgM Ab Non-reactive (NonReactive) 06/22/20 17:00 Hepatitis C Antibody Non-reactive (NonReactive) 06/22/20 17:00 SARS-CoV-2 IgG Ab Nonreactive (NonReactive) 07/04/20 05:20 Blood Type A POSITIVE 07/13/20 16:46 Antibody Screen Negative 07/13/20 16:46 Crossmatch See Detail 07/13/20 16:46 - Diagnostic Impressions Diagnostic Impressions: Echocardiogram 06/29/20 06:00 Transthoracic Echocardiogram Indication: A-fib BP: 105/47 HR: 99 Conclusions *The study is technically very difficult and limited due to poor acoustic windows. *Global left ventricular wall motion and contractility are within normal limits. *The estimated ejection fraction is 55-60%. *There is no pericardial effusion. Findings Procedure Info: The study quality is technically difficult. The study is technically limited due to poor acoustic windows. Left Ventricle: Global left ventricular wall motion and contractility are within normal limits. Global left ventricular systolic function is normal. The estimated ejection fraction is 55-60%. Left Atrium: The left atrium is not well visualized. Right Ventricle: The right ventricle is not well visualized. Right Atrium: The right atrium is not well visualized. Aortic Valve: The aortic valve is not well visualized. Mitral Valve: The mitral valve is not well visualized. Tricuspid Valve: The tricuspid valve is not well visualized. Pulmonic Valve: The pulmonic valve is not well visualized. Pericardium: There is no pericardial effusion. Venous: There is no change in the dimension of the inferior vena cava with respiration consistent with markedly increased right atrial pressure. Newell/IV: Voiding Method Incontinent Active Medications - Current Medications Current Medications: Generic Name Dose Route Start Last Admin Trade Name Freq PRN Reason Stop Dose Admin Acetaminophen 650 mg 06/17/20 14:17 07/03/20 09:16 Acetaminophen 325 Mg Tab PO 650 mg Q4H PRN Administration Pain MILD(1-3)/Fever >100.5/ROBERTS Lipase/Protease/Amylase 1 each 06/19/20 12:15 Lipase 10,500/Protease 25,000/Amylase 43,750 (Units) Dr Kulkarni FEEDTUBE PRN PRN For Clogged Feeding Tube Ascorbic Acid 250 mg 06/17/20 22:00 07/14/20 22:41 Ascorbic Acid 250 Mg Tab PO Not Given BID CONNOR Cholecalciferol 1,000 unit 06/18/20 10:00 07/14/20 09:30 Cholecalciferol (Vit D3) 1000 Unit (25 Mcg) Tab PO 1,000 unit DAILY CONNOR Administration Docusate Sodium 100 mg 06/23/20 15:00 07/14/20 22:41 Docusate Sodium 100 Mg/10 Ml Oral Liqd FEEDTUBE Not Given BID CONNOR Fentanyl 50 mcg 06/18/20 01:02 07/09/20 00:20 Fentanyl 100 Mcg/2 Ml Inj IV 50 mcg Q10MIN PRN Administration ANALGESIA Heparin Sodium (Porcine) 5,000 unit 06/22/20 12:53 06/30/20 13:36 Heparin 10,000 Unit/1 Ml Vial IV 5,000 unit PAM PRN Administration hemodialysis Hydrophilic Ointment 1 applic 06/17/20 22:52 07/12/20 20:22 Lip Therapy Vaseline TP 1 applic Q2HR PRN Administration Dry Lips Propofol 1,000 mg in 100 mls @ 3.402 mls/hr 06/18/20 01:00 07/15/20 05:14 Diprivan 10 Mg/Ml IV 10 mcg/kg/min TITR CONNOR 6.804 mls/hr Administration Protocol 5 MCG/KG/MIN Fentanyl Citrate 2,000 mcg in 100 mls @ 8 mls/hr 06/18/20 02:00 07/15/20 07:57 Fentanyl Drip Premix IV 1 mcg/kg/hr TITR CONNOR 8 mls/hr Administration Protocol 1 MCG/KG/HR Sodium Chloride 500 mls @ 1 mls/hr 06/18/20 09:38 06/19/20 21:37 Nacl 0.9% 500 Ml IV 0 mls/hr DIRECT PRN Infusion ARTERIAL LINE FLUSH Norepinephrine 4 mg in 250 mls @ 7.5 mls/hr 07/08/20 02:06 07/15/20 06:09 Levophed Drip 4 Mg/Ns 250 Ml IV 8 mcg/min TITR CONNOR 30 mls/hr Titration Protocol 2 MCG/MIN Vasopressin 20 unit/ Sodium 101 mls @ 9.09 mls/hr 07/11/20 11:00 07/15/20 04:40 Chloride IV 0.03 units/min TITR CONNOR 9.09 mls/hr Administration Protocol 0.03 UNITS/MIN Sodium Chloride 100 mls @ 999 mls/hr 07/12/20 10:00 Nacl 0.9% IV PAM PRN Hypotension Amiodarone HCl 900 mg/ 500 mls @ 33.333 mls/hr 07/14/20 12:30 07/14/20 19:05 Dextrose IV 0.5 mg/min DIRECT CONNOR 16.667 mls/hr Infusion Protocol 1 MG/MIN Pantoprazole Sodium 80 mg/ 100 mls @ 10 mls/hr 07/15/20 08:00 07/15/20 07:56 Sodium Chloride IV 8 mg/hr DIRECT CONNOR 10 mls/hr Administration 8 MG/HR Cefepime HCl 2 gm in 100 mls @ 200 mls/hr 07/15/20 08:00 Cefepime/Ns 2 Gm/100 Ml IV Q24H [facility] Protocol Vancomycin HCl 2,000 mg/ 540 mls @ 333 mls/hr 07/15/20 09:00 Sodium Chloride IV 07/15/20 10:37 ONCE ONE Protocol Insulin Human Regular 0 units 06/18/20 12:00 07/15/20 05:34 Insulin Regular, Human 100 Units/1 Ml SUB-Q Not Given Q6HR [facility] Protocol Multi-Ingred Cream/Lotion/Oil/Oint 1 applic 06/17/20 22:52 07/12/20 20:22 Mineral Oil/Petrolatum, White Ophth Oint 3.5 Gm OU 1 applic Q4HR PRN Administration Dry Eye(s) Ondansetron HCl 4 mg 06/17/20 14:17 Ondansetron 4 Mg/2 Ml Inj IV Q8H PRN Nausea And Vomiting Polyethylene Glycol 17 gm 06/23/20 15:00 07/14/20 09:30 Polyethylene Glycol 3350 17 Gm Powder PO 17 gm QDAY CONNOR Administration Quetiapine Fumarate 200 mg 06/28/20 13:00 07/14/20 22:40 Quetiapine 200 Mg Tab PO Not Given BID CONNOR Simple Syrup 15 ml 06/19/20 12:15 Simple Syrup 15 Ml FEEDTUBE PRN PRN Hypoglycemia Simple Syrup 30 ml 06/19/20 12:15 Simple Syrup 15 Ml FEEDTUBE PRN PRN Hypoglycemia Sodium Bicarbonate 325 mg 06/19/20 12:15 07/11/20 20:00 Sodium Bicarbonate 325 Mg Tab FEEDTUBE 325 mg PRN PRN Administration For Clogged Feeding Tube Sodium Bicarbonate 650 mg 07/04/20 10:00 07/14/20 20:52 Sodium Bicarbonate 650 Mg Tab PO 650 mg TID [facility] Administration Sodium Biphosphate/Sodium Phosphate 133 ml 07/15/20 09:00 Fleet Enema [place] Q1H CONNOR Sodium Chloride 10 ml 06/17/20 22:00 07/14/20 22:40 Sodium Chloride 0.9% 10 Ml Flush Syringe IV Not Given BID CONNOR Sodium Chloride 10 ml 06/17/20 14:17 Sodium Chloride 0.9% 10 Ml Flush Syringe IV PRN PRN LINE FLUSH Sodium Polystyrene Sulfonate 15 gm 07/03/20 11:19 07/05/20 10:36 Sodium Polystyrene 15 Gm/60 Ml Oral Liqd PO 15 gm Q6HR PRN Administration Hyperkalemia Zinc Sulfate 220 mg 06/17/20 22:00 07/14/20 22:41 Zinc Sulfate 220 Mg Cap PO Not Given BID CONNOR Nutrition/Malnutrition Assess - Dietary Evaluation Nutrition/Malnutrition Findings: Nutrition Notes Start: 06/18/20 10:28 Freq: Status: Active Protocol: Document 07/12/20 11:11 AL (Rec: 07/12/20 11:15 AL [id number]) Co-Sign 07/12/20 11:11 LP Nutrition Notes Initial or Follow up Reassessment Current Diagnosis Acute Kidney Injury,Sepsis, Respiratory Failure Other Pertinent Diagnosis COVID-19 (+), pneu Current Diet Nepro 1.8 at 40ml/hr Labs/Tests Na 134 BUN 79 Cr 3.7 Pertinent Medications Propofol at 6.8 ml/hr (180 kcal) Levophed Vasopressin Height 6 ft Weight 160 kg [place] Body Weight (kg) 80.90 BMI 47.8 Weight change and time frame Wt change of 30 kg noted. Pt on HD Weight Status Obese Subjective/Other Information FU for stable TF. Pt tolerating TF at 40 ml/hr ( goal rate). Percent of energy/protein needs met: 89%/48% Burn Absent Trauma Absent Current % PO Negligible Minimum of two criteria No physical signs of malnutrition #2 Nutrition Diagnosis Overweight/obesity Diagnosis Progress(for reassessment Continues documentation) #1 Nutrition Diagnosis Inadequate oral intake Diagnosis Progress(for reassessment Continues documentation) Is patient on ventilator? Yes Is Patient Ambulatory and/or Out of Bed No REE-([facility]-confined to bed) 2929.632 Kcal/Kg value to use for calculation 12 Approximate Energy Requirements Using 1920 kcal/Kg Calculation Used for Recommendations Kcal/kg Additional Notes Protein needs up to >2 g/kg IBW: 162 g Fluid needs: 1,000 ml + output Nutrition Intervention Change Diet Order: TF Nutrition Support: Nepro 1.8 at 50 ml/hr Flush 215 ml q4h Kcal 2,160 Protein (gm) 97 Fluid (mL) 872 Goal #1 Tolerate TF at goal rate Goal #2 Meet energy and protein needs as best as possible. Anticipated Discharge Needs: Unable to determine at the time. Follow-Up By: 07/19/20 Additional Comments F/U for TF tolerance and vent status
[2020-07-14] MEDS: AMIODARONE 900 MG in DEXTROSE 5% IN WATER 482 ML IV SCH (13:05)
--- NOTE | 2020-07-14 14:31 | Progress Note ---
Assessment and Plan Acute hypoxemic respiratory failure due to COVID-19 Severe COVID infection Severe Sepsis with shock Bilateral pneumonia Acute kidney injury (GIRISH) with acute tubular necrosis (ATN) Elevated liver enzymes Obesity (Discussed care with his family extensively over the phone and answered their questions; explained the gravity of his illness and the likely need for a tracheostomy if he shows improvement) - get DIC panel and address - G.I. consultation - FiO2 dropped to 60% - continue to wean vasopressors for target MAP > 65 mmHg - repeat CBC in am - continue to follow clinically off AB's - nephrology input sincerely appreciated (3kg UF during HD/UF today) - continue care as below otherwise; - therapeutic anticoagulation remains on hold - continue HD/UF per nephrology prescription for toxin and volume clearance - keep peep at 14 - continue daily SAT's & SBT's as tolerated - continue tube feeds and advance to goal rate as tolerated - continue HD/UF per nephrology team for toxin and volume clearance - continue bowel regimen - rate control per cardiology team for afib RVR - Continue to wean supplemental oxygen for O2 sats >92% - Monitor blood pressure closely while optimizing sedation,wean vasopressor support for MAP > 65 mmHg - Critical care prone positioning - VAP bundle addressed, aspiration precautions HOB >40 - continue lung protective strategies, permissive hypercapnic acceptable. - continue bronchodilators with pulmonary hygiene per RT - wean per pulmonary driven protocols otherwise - accuchecks with glycemic control per SSI (While critically ill target blood glucose of 140-180 mg/dL; avoid hypoglycemia) - sedation prn for target RASS -1 to -2 - continue enteral nutritional support at goal rate as tolerated - s/p antibiotics per ID recommendations - Monitor liver function test ,avoid hepatotoxic agents - azotemia per nephrology rec's - Avoid nephrotoxins, renally dose all medications, conservative fluid management - continue to avoid benzodiazepines, reduce the possibility of delirium, - prn analgesia per CPOT score - Maintenance of sleep-wake cycle, avoid delirium - Stress ulcer prophylaxis, Famotidine - PT/OT/ROM exercises - Mobility protocols for pressure ulcer prevention - CXR, ABG in am - CBC, CMP in am - Supportive transfusions to keep HgB >7g/dL - Monitor hemodynamics closely - continue other care per attending / other consultants COVID SPECIFIC INTERVENTIONS - s/p steroids: Dexamethasone - completed Remdesivir - monitor inflammatory markers prn - ferritin, D-dimer, CRP, LDH per facility protocol - continue anticoagulation per System Protocol based on d-dimer (on hold due to bleeding) - continue contact and airborne isolation CONDITION: CRITICAL PROGNOSIS: GUARDED CODE STATUS: FULL CODE The high probability of a clinically significant, sudden or life-threatening deterioration of the [respiratory, cardiovascular, hematologic & neurologic] system(s) required my full and direct attention, intervention and personal management. The aggregate critical care time was [32] minutes without overlap. Time includes spent on; [x] Data Review and interpretation [x] Patient assessment and monitoring of vital signs [x] Documentation [x] Medication orders and management He was evaluated in the context of the global COVID-19 pandemic, which necessitated consideration that the patient might be at risk for infection with the virus that causes COVID-19. Institutional protocols and algorithms that pertain to the evaluation of patients at risk for COVID-19 are in a state of rapid change based on information released by regulatory bodies including the CDC and federal and state organizations. These policies and algorithms were fo llowed during the patient's care in the ICU Please note that these policies, procedures and recommendations changed on a rapid basis. Subjective Date of service: 07/14/20 Principal diagnosis: ARF; Septic Shock; COVID-19 PNA; Atrial fibrillation; Obesity Interval history: Patient is seen today for: Ac hypoxemic respiratory failure; COVID-19; Severe Sepsis with shock; Zackery. pneumonia; GIRISH; Elevated liver enzymes; Obesity Seen and examined at bedside; 24hour events reviewed; nursing and respiratory care staff consulted; no adverse overnight events reported to me; resting in bed; remains on MVS; No HD/UF today; oxygenation a little better; some bleeding noted around rectal tube per RN; remains on vasopressors Objective Vital Signs - 12hr 07/14/20 07/14/20 07/14/20 02:45 03:00 03:15 Temperature Pulse Rate 98 H 92 H 91 H Pulse Rate [ From Monitor] Respiratory 25 H 25 H 25 H Rate Blood Pressure 98/51 99/49 95/45 O2 Sat by Pulse 97 98 97 Oximetry 07/14/20 07/14/20 07/14/20 03:30 03:45 04:00 Temperature 97.9 F Pulse Rate 99 H 93 H 94 H Pulse Rate [ 114 H From Monitor] Respiratory 25 H 25 H 25 H Rate Blood Pressure 93/45 92/44 88/50 O2 Sat by Pulse 98 97 100 Oximetry 07/14/20 07/14/20 07/14/20 04:11 04:15 04:30 Temperature Pulse Rate 85 88 96 H Pulse Rate [ From Monitor] Respiratory 25 H 26 H Rate Blood Pressure 94/45 94/45 O2 Sat by Pulse 100 99 82 L Oximetry 07/14/20 07/14/20 07/14/20 04:46 05:00 05:15 Temperature Pulse Rate 94 H 102 H 94 H Pulse Rate [ From Monitor] Respiratory 23 25 H 25 H Rate Blood Pressure 131/82 131/82 121/58 O2 Sat by Pulse 92 99 100 Oximetry 07/14/20 07/14/20 07/14/20 05:30 05:45 06:00 Temperature Pulse Rate 101 H 91 H 103 H Pulse Rate [ From Monitor] Respiratory 25 H 25 H 25 H Rate Blood Pressure 114/58 116/57 120/59 O2 Sat by Pulse 100 99 100 Oximetry 07/14/20 07/14/20 07/14/20 06:15 06:30 06:45 Temperature Pulse Rate 109 H 85 109 H Pulse Rate [ From Monitor] Respiratory 24 25 H 25 H Rate Blood Pressure 110/56 111/63 115/62 O2 Sat by Pulse 100 100 100 Oximetry 07/14/20 07/14/20 07/14/20 07:00 07:15 07:30 Temperature Pulse Rate 103 H 96 H 91 H Pulse Rate [ From Monitor] Respiratory 20 18 25 H Rate Blood Pressure 115/62 128/64 112/58 O2 Sat by Pulse 100 99 100 Oximetry 07/14/20 07/14/20 07/14/20 07:45 08:00 08:16 Temperature 97.4 F L Pulse Rate 121 H 130 H 125 H Pulse Rate [ 124 H From Monitor] Respiratory 25 H 13 19 Rate Blood Pressure 117/58 117/58 141/75 O2 Sat by Pulse 100 91 90 Oximetry 07/14/20 07/14/20 07/14/20 08:20 08:30 08:45 Temperature Pulse Rate 112 H 124 H 121 H Pulse Rate [ From Monitor] Respiratory 16 15 Rate Blood Pressure 148/78 148/78 128/60 O2 Sat by Pulse 92 91 93 Oximetry 07/14/20 07/14/20 07/14/20 09:00 09:16 09:30 Temperature Pulse Rate 115 H 101 H 114 H Pulse Rate [ From Monitor] Respiratory 17 31 H 25 H Rate Blood Pressure 128/60 105/37 103/69 O2 Sat by Pulse 97 98 100 Oximetry 07/14/20 07/14/20 07/14/20 09:45 10:00 10:15 Temperature Pulse Rate 132 H 121 H 109 H Pulse Rate [ From Monitor] Respiratory 18 18 30 H Rate Blood Pressure 100/64 100/64 107/59 O2 Sat by Pulse 100 97 96 Oximetry 07/14/20 07/14/20 07/14/20 10:30 10:45 11:00 Temperature Pulse Rate 123 H 130 H 110 H Pulse Rate [ From Monitor] Respiratory 25 H 26 H 30 H Rate Blood Pressure 105/67 119/65 123/64 O2 Sat by Pulse 98 96 97 Oximetry 07/14/20 07/14/20 07/14/20 11:16 11:30 11:46 Temperature Pulse Rate 126 H 125 H 133 H Pulse Rate [ From Monitor] Respiratory 23 14 17 Rate Blood Pressure 116/68 116/68 102/69 O2 Sat by Pulse 96 97 94 Oximetry 07/14/20 07/14/20 07/14/20 12:00 12:12 12:16 Temperature Pulse Rate 112 H 120 H 128 H Pulse Rate [ 117 H From Monitor] Respiratory 26 H 15 Rate Blood Pressure 111/78 142/76 149/71 O2 Sat by Pulse 94 91 91 Oximetry 07/14/20 07/14/20 07/14/20 12:30 12:45 13:00 Temperature Pulse Rate 117 H 102 H 114 H Pulse Rate [ From Monitor] Respiratory 22 29 H 22 Rate Blood Pressure 142/76 146/65 146/65 O2 Sat by Pulse 93 93 94 Oximetry 07/14/20 13:15 Temperature Pulse Rate 102 H Pulse Rate [ From Monitor] Respiratory 24 Rate Blood Pressure 117/61 O2 Sat by Pulse 96 Oximetry Constitutional: appears uncomfortable, other (morbidly obese, atraumatic, normocephalic, mild resp distress, orally intubated) Eyes: non-icteric ENT: oropharynx moist, other (ETT 24 cm TROY + blood crusted lips) Neck: supple, no lymphadenopathy, other (Large , short neck) Effort: mildly labored Ascultation: Bilateral: diminished breath sounds, rhonchi Percussion: Bilateral: not dull Cardiovascular: irregular rhythm, other (S1,S2) Gastrointestinal: normoactive bowel sounds, non-distended (protuberant), other (lizeth-rectal tube slow oozing) Integumentary: rash, other (Femoral CVC, Newell catheter) Extremities: pink and warm, pulses normal, no ischemia or petechiae, edema (trace to 1+) Neurologic: non-focal exam (grossly), pupils equal and round, other (unable to assess, sedated) Psychiatric: other (unable to assess, sedated) CBC and BMP: 07/14/20 20:20 07/13/20 15:12 ABG, PT/INR, D-dimer: ABG ABG pH 7.332 (7.320-7.450) 07/14/20 04:25 POC ABG pCO2 46.7 mmHg (32.0-48.0) 07/14/20 04:25 ABG pCO2 56.4 mm Hg 07/05/20 04:30 POC ABG pO2 87.6 mmHg (83-108) 07/14/20 04:25 ABG pO2 151.9 mm Hg (80.0-90.0) H 07/05/20 04:30 POC ABG HCO3 24.2 07/14/20 04:25 ABG O2 Saturation 98.7 % (95.0-99.0) 07/05/20 04:30 PT/INR, D-dimer PT 17.4 Sec. (12.2-14.9) H 06/26/20 05:47 INR 1.44 (0.87-1.13) H 06/26/20 05:47 D-Dimer 6608.00 ng/mlDDU (0-234) H 07/03/20 14:50 Abnormal lab findings: Abnormal Labs 06/17/20 06/17/20 06/17/20 12:33 12:33 12:33 WBC 19.5 H RBC 5.18 H Hgb 15.5 H Hct MCHC RDW Lymph % (Auto) 3.8 L [place] % (Auto) Lymph # (Auto) 0.7 L [place] # (Auto) Eos # (Auto) Seg Neutrophils % Seg Neuts % (Manual) 99.0 H Lymphocytes % (Manual) 1.0 L Monocytes % (Manual) Nucleated RBC % Seg Neutrophils # 18.2 H Seg Neutrophils # Man 19.3 H Lymphocytes # (Manual) 0.2 L Monocytes # (Manual) Eosinophils # (Manual) PT 16.5 H INR 1.33 H APTT D-Dimer 1025.04 H Heparin Anti-Xa Level ABG pH POC ABG pCO2 POC ABG pO2 ABG pO2 ABG HCO3 ABG Hemoglobin ABG Oxyhemoglobin ABG Sodium ABG Potassium ABG Chloride ABG Glucose Carboxyhemoglobin Sodium 130 L Potassium 3.4 L Chloride 95.0 L Carbon Dioxide BUN 21 H Creatinine Glucose 137 H POC Glucose Lactic Acid Calcium 7.9 L Phosphorus Magnesium Ferritin Direct Bilirubin AST 84 H ALT 67 H Alkaline Phosphatase Lactate Dehydrogenase 437 H Total Creatine Kinase 310 H C-Reactive Protein 27.90 H Total Protein Albumin 2.9 L Triglycerides Arterial Blood Glucose Arterial Blood Ionized Calcium Urine Creatinine Urine Chloride Vancomycin Trough Coronavirus (PCR) Crossmatch 06/17/20 06/17/20 06/17/20 12:33 12:33 14:48 WBC RBC Hgb Hct MCHC RDW Lymph % (Auto) [place] % (Auto) Lymph # (Auto) [place] # (Auto) Eos # (Auto) Seg Neutrophils % Seg Neuts % (Manual) Lymphocytes % (Manual) Monocytes % (Manual) Nucleated RBC % Seg Neutrophils # Seg Neutrophils # Man Lymphocytes # (Manual) Monocytes # (Manual) Eosinophils # (Manual) PT INR APTT D-Dimer Heparin Anti-Xa Level ABG pH POC ABG pCO2 POC ABG pO2 ABG pO2 ABG HCO3 ABG Hemoglobin ABG Oxyhemoglobin ABG Sodium ABG Potassium ABG Chloride ABG Glucose Carboxyhemoglobin Sodium Potassium Chloride Carbon Dioxide BUN Creatinine Glucose POC Glucose Lactic Acid 2.50 H* 2.20 H* Calcium Phosphorus Magnesium Ferritin 2297.0 H Direct Bilirubin AST ALT Alkaline Phosphatase Lactate Dehydrogenase Total Creatine Kinase C-Reactive Protein Total Protein Albumin Triglycerides Arterial Blood Glucose Arterial Blood Ionized Calcium Urine Creatinine Urine Chloride Vancomycin Trough Coronavirus (PCR) Crossmatch 06/17/20 06/17/20 06/17/20 14:48 14:48 14:48 WBC RBC Hgb Hct MCHC RDW Lymph % (Auto) [place] % (Auto) Lymph # (Auto) [place] # (Auto) Eos # (Auto) Seg Neutrophils % Seg Neuts % (Manual) Lymphocytes % (Manual) Monocytes % (Manual) Nucleated RBC % Seg Neutrophils # Seg Neutrophils # Man Lymphocytes # (Manual) Monocytes # (Manual) Eosinophils # (Manual) PT INR APTT D-Dimer 939.89 H Heparin Anti-Xa Level ABG pH POC ABG pCO2 POC ABG pO2 ABG pO2 ABG HCO3 ABG Hemoglobin ABG Oxyhemoglobin ABG Sodium ABG Potassium ABG Chloride ABG Glucose Carboxyhemoglobin Sodium Potassium Chloride Carbon Dioxide BUN Creatinine Glucose 141 H POC Glucose Lactic Acid Calcium Phosphorus Magnesium Ferritin > 2000.0 H Direct Bilirubin AST ALT Alkaline Phosphatase Lactate Dehydrogenase 503 H Total Creatine Kinase C-Reactive Protein 24.70 H Total Protein Albumin Triglycerides Arterial Blood Glucose Arterial Blood Ionized Calcium Urine Creatinine Urine Chloride Vancomycin Trough Coronavirus (PCR) Crossmatch 06/17/20 06/17/20 06/17/20 16:54 19:39 23:43 WBC RBC Hgb Hct MCHC RDW Lymph % (Auto) [place] % (Auto) Lymph # (Auto) [place] # (Auto) Eos # (Auto) Seg Neutrophils % Seg Neuts % (Manual) Lymphocytes % (Manual) Monocytes % (Manual) Nucleated RBC % Seg Neutrophils # Seg Neutrophils # Man Lymphocytes # (Manual) Monocytes # (Manual) Eosinophils # (Manual) PT INR APTT D-Dimer Heparin Anti-Xa Level ABG pH 7.571 H POC ABG pCO2 24.3 L POC ABG pO2 41.6 L ABG pO2 ABG HCO3 ABG Hemoglobin ABG Oxyhemoglobin 84.0 L ABG Sodium 131.0 L ABG Potassium ABG Chloride ABG Glucose 163 H Carboxyhemoglobin Sodium Potassium Chloride Carbon Dioxide BUN Creatinine Glucose POC Glucose 185 H Lactic Acid 2.10 H* Calcium Phosphorus Magnesium Ferritin Direct Bilirubin AST ALT Alkaline Phosphatase Lactate Dehydrogenase Total Creatine Kinase C-Reactive Protein Total Protein Albumin Triglycerides Arterial Blood Glucose 163 H Arterial Blood Ionized Calcium 4.4 L Urine Creatinine Urine Chloride Vancomycin Trough Coronavirus (PCR) Crossmatch 06/18/20 06/18/20 06/18/20 00:17 00:23 03:55 WBC RBC Hgb Hct MCHC RDW Lymph % (Auto) [place] % (Auto) Lymph # (Auto) [place] # (Auto) Eos # (Auto) Seg Neutrophils % Seg Neuts % (Manual) Lymphocytes % (Manual) Monocytes % (Manual) Nucleated RBC % Seg Neutrophils # Seg Neutrophils # Man Lymphocytes # (Manual) Monocytes # (Manual) Eosinophils # (Manual) PT INR APTT D-Dimer Heparin Anti-Xa Level ABG pH POC ABG pCO2 POC ABG pO2 56.5 L 48.3 L ABG pO2 ABG HCO3 ABG Hemoglobin ABG Oxyhemoglobin 86.3 L 81.7 L ABG Sodium 132.9 L 131.0 L ABG Potassium ABG Chloride ABG Glucose 189 H 161 H Carboxyhemoglobin 0.4 L Sodium Potassium Chloride Carbon Dioxide BUN Creatinine Glucose POC Glucose Lactic Acid 3.80 H* Calcium Phosphorus Magnesium Ferritin Direct Bilirubin AST ALT Alkaline Phosphatase Lactate Dehydrogenase Total Creatine Kinase C-Reactive Protein Total Protein Albumin Triglycerides Arterial Blood Glucose 189 H 161 H Arterial Blood Ionized Calcium 4.3 L 4.2 L Urine Creatinine Urine Chloride Vancomycin Trough Coronavirus (PCR) Crossmatch 06/18/20 06/18/20 06/18/20 05:39 05:39 05:39 WBC 26.2 H RBC Hgb Hct MCHC RDW Lymph % (Auto) [place] % (Auto) Lymph # (Auto) [place] # (Auto) Eos # (Auto) Seg Neutrophils % Seg Neuts % (Manual) 90.0 H Lymphocytes % (Manual) 5.0 L Monocytes % (Manual) Nucleated RBC % Seg Neutrophils # Seg Neutrophils # Man 23.6 H Lymphocytes # (Manual) Monocytes # (Manual) 1.3 H Eosinophils # (Manual) PT INR APTT D-Dimer Heparin Anti-Xa Level ABG pH POC ABG pCO2 POC ABG pO2 ABG pO2 ABG HCO3 ABG Hemoglobin ABG Oxyhemoglobin ABG Sodium ABG Potassium ABG Chloride ABG Glucose Carboxyhemoglobin Sodium 135 L Potassium Chloride 97.5 L Carbon Dioxide 21 L BUN 39 H Creatinine 1.7 H D Glucose 168 H POC Glucose Lactic Acid 3.40 H* Calcium 7.2 L Phosphorus Magnesium Ferritin Direct Bilirubin AST ALT Alkaline Phosphatase Lactate Dehydrogenase Total Creatine Kinase C-Reactive Protein Total Protein Albumin Triglycerides Arterial Blood Glucose Arterial Blood Ionized Calcium Urine Creatinine Urine Chloride Vancomycin Trough Coronavirus (PCR) Crossmatch 06/18/20 06/18/20 06/18/20 07:24 09:00 10:10 WBC RBC Hgb Hct MCHC RDW Lymph % (Auto) [place] % (Auto) Lymph # (Auto) [place] # (Auto) Eos # (Auto) Seg Neutrophils % Seg Neuts % (Manual) Lymphocytes % (Manual) Monocytes % (Manual) Nucleated RBC % Seg Neutrophils # Seg Neutrophils # Man Lymphocytes # (Manual) Monocytes # (Manual) Eosinophils # (Manual) PT INR APTT D-Dimer Heparin Anti-Xa Level ABG pH POC ABG pCO2 POC ABG pO2 ABG pO2 ABG HCO3 ABG Hemoglobin ABG Oxyhemoglobin ABG Sodium ABG Potassium ABG Chloride ABG Glucose Carboxyhemoglobin Sodium Potassium Chloride Carbon Dioxide BUN Creatinine Glucose POC Glucose Lactic Acid 2.90 H* 3.20 H* Calcium Phosphorus Magnesium Ferritin Direct Bilirubin AST ALT Alkaline Phosphatase Lactate Dehydrogenase Total Creatine Kinase C-Reactive Protein Total Protein Albumin Triglycerides Arterial Blood Glucose Arterial Blood Ionized Calcium Urine Creatinine Urine Chloride Vancomycin Trough Coronavirus (PCR) Positive A Crossmatch 06/18/20 06/18/20 06/18/20 11:58 14:43 15:00 WBC RBC Hgb Hct MCHC RDW Lymph % (Auto) [place] % (Auto) Lymph # (Auto) [place] # (Auto) Eos # (Auto) Seg Neutrophils % Seg Neuts % (Manual) Lymphocytes % (Manual) Monocytes % (Manual) Nucleated RBC % Seg Neutrophils # Seg Neutrophils # Man Lymphocytes # (Manual) Monocytes # (Manual) Eosinophils # (Manual) PT INR APTT D-Dimer Heparin Anti-Xa Level ABG pH 7.303 L POC ABG pCO2 POC ABG pO2 82.3 L ABG pO2 ABG HCO3 ABG Hemoglobin ABG Oxyhemoglobin ABG Sodium 135.3 L ABG Potassium ABG Chloride ABG Glucose 215 H Carboxyhemoglobin 0.3 L Sodium Potassium Chloride Carbon Dioxide BUN Creatinine Glucose POC Glucose 209 H Lactic Acid Calcium Phosphorus Magnesium Ferritin Direct Bilirubin AST ALT Alkaline Phosphatase Lactate Dehydrogenase Total Creatine Kinase C-Reactive Protein Total Protein Albumin Triglycerides Arterial Blood Glucose 215 H Arterial Blood Ionized Calcium 4.2 L Urine Creatinine 192.4 H Urine Chloride 31.1 L Vancomycin Trough Coronavirus (PCR) Crossmatch 06/18/20 06/18/20 06/18/20 17:16 19:44 20:33 WBC RBC Hgb Hct MCHC RDW Lymph % (Auto) [place] % (Auto) Lymph # (Auto) [place] # (Auto) Eos # (Auto) Seg Neutrophils % Seg Neuts % (Manual) Lymphocytes % (Manual) Monocytes % (Manual) Nucleated RBC % Seg Neutrophils # Seg Neutrophils # Man Lymphocytes # (Manual) Monocytes # (Manual) Eosinophils # (Manual) PT INR APTT D-Dimer Heparin Anti-Xa Level ABG pH POC ABG pCO2 POC ABG pO2 ABG pO2 ABG HCO3 ABG Hemoglobin ABG Oxyhemoglobin ABG Sodium ABG Potassium ABG Chloride ABG Glucose Carboxyhemoglobin Sodium Potassium Chloride Carbon Dioxide BUN Creatinine Glucose POC Glucose 182 H Lactic Acid 3.00 H* Calcium Phosphorus Magnesium 2.70 H Ferritin Direct Bilirubin AST ALT Alkaline Phosphatase Lactate Dehydrogenase Total Creatine Kinase C-Reactive Protein Total Protein Albumin Triglycerides Arterial Blood Glucose Arterial Blood Ionized Calcium Urine Creatinine Urine Chloride Vancomycin Trough Coronavirus (PCR) Crossmatch 06/18/20 06/19/20 06/19/20 23:43 04:00 04:00 WBC 31.6 H RBC Hgb Hct MCHC RDW Lymph % (Auto) [place] % (Auto) Lymph # (Auto) [place] # (Auto) Eos # (Auto) Seg Neutrophils % Seg Neuts % (Manual) 98.0 H Lymphocytes % (Manual) 0.5 L Monocytes % (Manual) Nucleated RBC % Seg Neutrophils # Seg Neutrophils # Man 31.0 H Lymphocytes # (Manual) 0.2 L Monocytes # (Manual) Eosinophils # (Manual) PT INR APTT D-Dimer Heparin Anti-Xa Level ABG pH POC ABG pCO2 POC ABG pO2 ABG pO2 ABG HCO3 ABG Hemoglobin ABG Oxyhemoglobin ABG Sodium ABG Potassium ABG Chloride ABG Glucose Carboxyhemoglobin Sodium Potassium Chloride Carbon Dioxide BUN 56 H Creatinine 1.6 H Glucose 176 H POC Glucose 149 H Lactic Acid Calcium 7.0 L Phosphorus Magnesium Ferritin Direct Bilirubin AST 244 H ALT 159 H Alkaline Phosphatase Lactate Dehydrogenase Total Creatine Kinase C-Reactive Protein Total Protein 4.9 L D Albumin 2.5 L Triglycerides Arterial Blood Glucose Arterial Blood Ionized Calcium Urine Creatinine Urine Chloride Vancomycin Trough Coronavirus (PCR) Crossmatch 06/19/20 06/19/20 06/19/20 04:00 05:44 11:42 WBC RBC Hgb Hct MCHC RDW Lymph % (Auto) [place] % (Auto) Lymph # (Auto) [place] # (Auto) Eos # (Auto) Seg Neutrophils % Seg Neuts % (Manual) Lymphocytes % (Manual) Monocytes % (Manual) Nucleated RBC % Seg Neutrophils # Seg Neutrophils # Man Lymphocytes # (Manual) Monocytes # (Manual) Eosinophils # (Manual) PT INR APTT D-Dimer Heparin Anti-Xa Level ABG pH 7.265 L POC ABG pCO2 51.8 H POC ABG pO2 65.1 L ABG pO2 ABG HCO3 ABG Hemoglobin ABG Oxyhemoglobin ABG Sodium ABG Potassium ABG Chloride ABG Glucose 184 H Carboxyhemoglobin Sodium Potassium Chloride Carbon Dioxide BUN Creatinine Glucose POC Glucose 156 H 191 H Lactic Acid Calcium Phosphorus Magnesium Ferritin Direct Bilirubin AST ALT Alkaline Phosphatase Lactate Dehydrogenase Total Creatine Kinase C-Reactive Protein Total Protein Albumin Triglycerides Arterial Blood Glucose 184 H Arterial Blood Ionized Calcium 4.3 L Urine Creatinine Urine Chloride Vancomycin Trough Coronavirus (PCR) Crossmatch 06/19/20 06/19/20 06/19/20 12:30 17:16 18:36 WBC RBC Hgb Hct MCHC RDW Lymph % (Auto) [place] % (Auto) Lymph # (Auto) [place] # (Auto) Eos # (Auto) Seg Neutrophils % Seg Neuts % (Manual) Lymphocytes % (Manual) Monocytes % (Manual) Nucleated RBC % Seg Neutrophils # Seg Neutrophils # Man Lymphocytes # (Manual) Monocytes # (Manual) Eosinophils # (Manual) PT 16.4 H INR 1.32 H APTT D-Dimer Heparin Anti-Xa Level ABG pH 7.088 L POC ABG pCO2 78.1 H POC ABG pO2 208.3 H ABG pO2 ABG HCO3 ABG Hemoglobin ABG Oxyhemoglobin 98.3 H ABG Sodium ABG Potassium 5.0 H ABG Chloride ABG Glucose 182 H Carboxyhemoglobin 0.4 L Sodium Potassium Chloride Carbon Dioxide BUN Creatinine Glucose POC Glucose 154 H Lactic Acid Calcium Phosphorus Magnesium Ferritin Direct Bilirubin AST ALT Alkaline Phosphatase Lactate Dehydrogenase Total Creatine Kinase C-Reactive Protein Total Protein Albumin Triglycerides Arterial Blood Glucose 182 H Arterial Blood Ionized Calcium 4.3 L Urine Creatinine Urine Chloride Vancomycin Trough Coronavirus (PCR) Crossmatch 06/19/20 06/20/20 06/20/20 23:32 03:00 05:19 WBC RBC Hgb Hct MCHC RDW Lymph % (Auto) [place] % (Auto) Lymph # (Auto) [place] # (Auto) Eos # (Auto) Seg Neutrophils % Seg Neuts % (Manual) Lymphocytes % (Manual) Monocytes % (Manual) Nucleated RBC % Seg Neutrophils # Seg Neutrophils # Man Lymphocytes # (Manual) Monocytes # (Manual) Eosinophils # (Manual) PT INR APTT D-Dimer Heparin Anti-Xa Level 0.77 H ABG pH POC ABG pCO2 POC ABG pO2 ABG pO2 ABG HCO3 ABG Hemoglobin ABG Oxyhemoglobin ABG Sodium ABG Potassium ABG Chloride ABG Glucose Carboxyhemoglobin Sodium Potassium Chloride Carbon Dioxide BUN Creatinine Glucose POC Glucose 201 H 190 H Lactic Acid Calcium Phosphorus Magnesium Ferritin Direct Bilirubin AST ALT Alkaline Phosphatase Lactate Dehydrogenase Total Creatine Kinase C-Reactive Protein Total Protein Albumin Triglycerides Arterial Blood Glucose Arterial Blood Ionized Calcium Urine Creatinine Urine Chloride Vancomycin Trough Coronavirus (PCR) Crossmatch 06/20/20 06/20/20 06/20/20 08:25 08:25 11:36 WBC RBC Hgb Hct MCHC RDW Lymph % (Auto) [place] % (Auto) Lymph # (Auto) [place] # (Auto) Eos # (Auto) Seg Neutrophils % Seg Neuts % (Manual) Lymphocytes % (Manual) Monocytes % (Manual) Nucleated RBC % Seg Neutrophils # Seg Neutrophils # Man Lymphocytes # (Manual) Monocytes # (Manual) Eosinophils # (Manual) PT INR APTT D-Dimer Heparin Anti-Xa Level ABG pH POC ABG pCO2 POC ABG pO2 ABG pO2 ABG HCO3 ABG Hemoglobin ABG Oxyhemoglobin ABG Sodium ABG Potassium ABG Chloride ABG Glucose Carboxyhemoglobin Sodium 135 L Potassium 5.4 H Chloride 109.2 H Carbon Dioxide 19 L BUN 68 H Creatinine 2.5 H D Glucose 201 H POC Glucose 184 H Lactic Acid Calcium 5.5 L* D Phosphorus Magnesium Ferritin Direct Bilirubin AST 123 H ALT 86 H Alkaline Phosphatase Lactate Dehydrogenase Total Creatine Kinase C-Reactive Protein Total Protein 4.6 L Albumin 1.5 L Triglycerides Arterial Blood Glucose Arterial Blood Ionized Calcium Urine Creatinine Urine Chloride Vancomycin Trough 22.7 H Coronavirus (PCR) Crossmatch 06/20/20 06/20/20 06/20/20 11:40 17:28 20:00 WBC RBC Hgb Hct MCHC RDW Lymph % (Auto) [place] % (Auto) Lymph # (Auto) [place] # (Auto) Eos # (Auto) Seg Neutrophils % Seg Neuts % (Manual) Lymphocytes % (Manual) Monocytes % (Manual) Nucleated RBC % Seg Neutrophils # Seg Neutrophils # Man Lymphocytes # (Manual) Monocytes # (Manual) Eosinophils # (Manual) PT INR APTT D-Dimer Heparin Anti-Xa Level 0.89 H ABG pH 7.099 L POC ABG pCO2 61.1 H POC ABG pO2 ABG pO2 ABG HCO3 ABG Hemoglobin ABG Oxyhemoglobin ABG Sodium ABG Potassium 5.0 H ABG Chloride 111.0 H ABG Glucose 200 H Carboxyhemoglobin 0.4 L Sodium Potassium Chloride Carbon Dioxide BUN Creatinine Glucose POC Glucose 165 H Lactic Acid Calcium Phosphorus Magnesium Ferritin Direct Bilirubin AST ALT Alkaline Phosphatase Lactate Dehydrogenase Total Creatine Kinase C-Reactive Protein Total Protein Albumin Triglycerides Arterial Blood Glucose 200 H Arterial Blood Ionized Calcium 4.2 L Urine Creatinine Urine Chloride Vancomycin Trough Coronavirus (PCR) Crossmatch 06/20/20 06/21/20 06/21/20 23:29 05:00 05:20 WBC RBC Hgb Hct MCHC RDW Lymph % (Auto) [place] % (Auto) Lymph # (Auto) [place] # (Auto) Eos # (Auto) Seg Neutrophils % Seg Neuts % (Manual) Lymphocytes % (Manual) Monocytes % (Manual) Nucleated RBC % Seg Neutrophils # Seg Neutrophils # Man Lymphocytes # (Manual) Monocytes # (Manual) Eosinophils # (Manual) PT INR APTT D-Dimer Heparin Anti-Xa Level ABG pH POC ABG pCO2 POC ABG pO2 ABG pO2 ABG HCO3 ABG Hemoglobin ABG Oxyhemoglobin ABG Sodium ABG Potassium ABG Chloride ABG Glucose Carboxyhemoglobin Sodium Potassium Chloride 112.0 H Carbon Dioxide 20 L BUN 92 H Creatinine 3.9 H D Glucose 214 H POC Glucose 145 H 191 H Lactic Acid Calcium 6.5 L D Phosphorus Magnesium Ferritin Direct Bilirubin AST 98 H ALT 84 H Alkaline Phosphatase Lactate Dehydrogenase Total Creatine Kinase C-Reactive Protein Total Protein 4.6 L Albumin 2.1 L Triglycerides 180 H Arterial Blood Glucose Arterial Blood Ionized Calcium Urine Creatinine Urine Chloride Vancomycin Trough Coronavirus (PCR) Crossmatch 06/21/20 06/21/20 06/21/20 08:56 11:12 12:43 WBC RBC Hgb Hct MCHC RDW Lymph % (Auto) [place] % (Auto) Lymph # (Auto) [place] # (Auto) Eos # (Auto) Seg Neutrophils % Seg Neuts % (Manual) Lymphocytes % (Manual) Monocytes % (Manual) Nucleated RBC % Seg Neutrophils # Seg Neutrophils # Man Lymphocytes # (Manual) Monocytes # (Manual) Eosinophils # (Manual) PT INR APTT D-Dimer Heparin Anti-Xa Level 0.28 L ABG pH 7.184 L POC ABG pCO2 48.3 H POC ABG pO2 172.1 H ABG pO2 ABG HCO3 ABG Hemoglobin ABG Oxyhemoglobin 98.7 H ABG Sodium ABG Potassium 4.9 H ABG Chloride 112.0 H ABG Glucose 196 H Carboxyhemoglobin 0.2 L Sodium Potassium Chloride Carbon Dioxide BUN Creatinine Glucose POC Glucose 177 H Lactic Acid Calcium Phosphorus Magnesium Ferritin Direct Bilirubin AST ALT Alkaline Phosphatase Lactate Dehydrogenase Total Creatine Kinase C-Reactive Protein Total Protein Albumin Triglycerides Arterial Blood Glucose 196 H Arterial Blood Ionized Calcium 4.1 L Urine Creatinine Urine Chloride Vancomycin Trough Coronavirus (PCR) Crossmatch 06/21/20 06/21/20 06/22/20 16:31 Unknown 00:12 WBC RBC Hgb Hct MCHC RDW Lymph % (Auto) [place] % (Auto) Lymph # (Auto) [place] # (Auto) Eos # (Auto) Seg Neutrophils % Seg Neuts % (Manual) Lymphocytes % (Manual) Monocytes % (Manual) Nucleated RBC % Seg Neutrophils # Seg Neutrophils # Man Lymphocytes # (Manual) Monocytes # (Manual) Eosinophils # (Manual) PT INR APTT D-Dimer Heparin Anti-Xa Level 0.78 H ABG pH POC ABG pCO2 POC ABG pO2 ABG pO2 ABG HCO3 ABG Hemoglobin ABG Oxyhemoglobin ABG Sodium ABG Potassium ABG Chloride ABG Glucose Carboxyhemoglobin Sodium Potassium Chloride Carbon Dioxide BUN Creatinine Glucose POC Glucose 150 H 173 H Lactic Acid Calcium Phosphorus Magnesium Ferritin Direct Bilirubin AST ALT Alkaline Phosphatase Lactate Dehydrogenase Total Creatine Kinase C-Reactive Protein Total Protein Albumin Triglycerides Arterial Blood Glucose Arterial Blood Ionized Calcium Urine Creatinine Urine Chloride Vancomycin Trough Coronavirus (PCR) Crossmatch 06/22/20 06/22/20 06/22/20 04:00 05:04 05:30 WBC 33.9 H RBC Hgb 11.7 L Hct 35.2 L MCHC RDW 15.8 H Lymph % (Auto) [place] % (Auto) Lymph # (Auto) [place] # (Auto) Eos # (Auto) Seg Neutrophils % Seg Neuts % (Manual) 93.0 H Lymphocytes % (Manual) 5.0 L Monocytes % (Manual) Nucleated RBC % Seg Neutrophils # Seg Neutrophils # Man 31.5 H Lymphocytes # (Manual) Monocytes # (Manual) Eosinophils # (Manual) PT INR APTT D-Dimer Heparin Anti-Xa Level ABG pH 7.169 L POC ABG pCO2 POC ABG pO2 ABG pO2 ABG HCO3 ABG Hemoglobin ABG Oxyhemoglobin ABG Sodium ABG Potassium 5.1 H ABG Chloride 112.0 H ABG Glucose 186 H Carboxyhemoglobin 0.3 L Sodium Potassium Chloride Carbon Dioxide BUN Creatinine Glucose POC Glucose 161 H Lactic Acid Calcium Phosphorus Magnesium Ferritin Direct Bilirubin AST ALT Alkaline Phosphatase Lactate Dehydrogenase Total Creatine Kinase C-Reactive Protein Total Protein Albumin Triglycerides Arterial Blood Glucose 186 H Arterial Blood Ionized Calcium 4.1 L Urine Creatinine Urine Chloride Vancomycin Trough Coronavirus (PCR) Crossmatch 06/22/20 06/22/20 06/22/20 05:30 11:39 13:27 WBC RBC Hgb Hct MCHC RDW Lymph % (Auto) [place] % (Auto) Lymph # (Auto) [place] # (Auto) Eos # (Auto) Seg Neutrophils % Seg Neuts % (Manual) Lymphocytes % (Manual) Monocytes % (Manual) Nucleated RBC % Seg Neutrophils # Seg Neutrophils # Man Lymphocytes # (Manual) Monocytes # (Manual) Eosinophils # (Manual) PT INR APTT D-Dimer Heparin Anti-Xa Level ABG pH POC ABG pCO2 POC ABG pO2 ABG pO2 ABG HCO3 ABG Hemoglobin ABG Oxyhemoglobin ABG Sodium ABG Potassium ABG Chloride ABG Glucose Carboxyhemoglobin Sodium Potassium 5.7 H Chloride 111.3 H Carbon Dioxide 18 L BUN 112 H Creatinine 5.0 H Glucose 173 H POC Glucose 172 H 176 H Lactic Acid Calcium 6.7 L Phosphorus Magnesium Ferritin Direct Bilirubin AST ALT Alkaline Phosphatase Lactate Dehydrogenase Total Creatine Kinase C-Reactive Protein Total Protein Albumin Triglycerides Arterial Blood Glucose Arterial Blood Ionized Calcium Urine Creatinine Urine Chloride Vancomycin Trough Coronavirus (PCR) Crossmatch 06/22/20 06/22/20 06/22/20 14:37 17:00 17:40 WBC RBC Hgb Hct MCHC RDW Lymph % (Auto) [place] % (Auto) Lymph # (Auto) [place] # (Auto) Eos # (Auto) Seg Neutrophils % Seg Neuts % (Manual) Lymphocytes % (Manual) Monocytes % (Manual) Nucleated RBC % Seg Neutrophils # Seg Neutrophils # Man Lymphocytes # (Manual) Monocytes # (Manual) Eosinophils # (Manual) PT INR APTT D-Dimer Heparin Anti-Xa Level 1.32 H ABG pH POC ABG pCO2 POC ABG pO2 ABG pO2 ABG HCO3 ABG Hemoglobin ABG Oxyhemoglobin ABG Sodium ABG Potassium ABG Chloride ABG Glucose Carboxyhemoglobin Sodium Potassium Chloride Carbon Dioxide BUN Creatinine Glucose POC Glucose 171 H Lactic Acid Calcium Phosphorus Magnesium Ferritin Direct Bilirubin AST ALT Alkaline Phosphatase Lactate Dehydrogenase Total Creatine Kinase C-Reactive Protein 5.30 H Total Protein Albumin Triglycerides Arterial Blood Glucose Arterial Blood Ionized Calcium Urine Creatinine Urine Chloride Vancomycin Trough Coronavirus (PCR) Crossmatch 06/22/20 06/23/20 06/23/20 23:36 02:13 02:41 WBC RBC Hgb Hct MCHC RDW Lymph % (Auto) [place] % (Auto) Lymph # (Auto) [place] # (Auto) Eos # (Auto) Seg Neutrophils % Seg Neuts % (Manual) Lymphocytes % (Manual) Monocytes % (Manual) Nucleated RBC % Seg Neutrophils # Seg Neutrophils # Man Lymphocytes # (Manual) Monocytes # (Manual) Eosinophils # (Manual) PT INR APTT D-Dimer Heparin Anti-Xa Level 0.21 L ABG pH 7.318 L POC ABG pCO2 POC ABG pO2 157.5 H ABG pO2 ABG HCO3 ABG Hemoglobin ABG Oxyhemoglobin ABG Sodium 135.6 L ABG Potassium 4.6 H ABG Chloride 110.0 H ABG Glucose 169 H Carboxyhemoglobin Sodium Potassium Chloride Carbon Dioxide BUN Creatinine Glucose POC Glucose 155 H Lactic Acid Calcium Phosphorus Magnesium Ferritin Direct Bilirubin AST ALT Alkaline Phosphatase Lactate Dehydrogenase Total Creatine Kinase C-Reactive Protein Total Protein Albumin Triglycerides Arterial Blood Glucose 169 H Arterial Blood Ionized Calcium Urine Creatinine Urine Chloride Vancomycin Trough Coronavirus (PCR) Crossmatch 06/23/20 06/23/20 06/23/20 04:00 04:00 05:24 WBC 27.4 H RBC Hgb 11.3 L Hct 33.8 L MCHC RDW Lymph % (Auto) [place] % (Auto) Lymph # (Auto) [place] # (Auto) Eos # (Auto) Seg Neutrophils % Seg Neuts % (Manual) 93.0 H Lymphocytes % (Manual) 1.0 L Monocytes % (Manual) Nucleated RBC % 1.0 H Seg Neutrophils # Seg Neutrophils # Man 25.5 H Lymphocytes # (Manual) 0.3 L Monocytes # (Manual) 1.1 H Eosinophils # (Manual) PT INR APTT D-Dimer Heparin Anti-Xa Level ABG pH POC ABG pCO2 POC ABG pO2 ABG pO2 ABG HCO3 ABG Hemoglobin ABG Oxyhemoglobin ABG Sodium ABG Potassium ABG Chloride ABG Glucose Carboxyhemoglobin Sodium Potassium Chloride 107.6 H Carbon Dioxide 20 L BUN 100 H Creatinine 4.7 H Glucose 168 H POC Glucose 151 H Lactic Acid Calcium Phosphorus Magnesium Ferritin Direct Bilirubin AST ALT Alkaline Phosphatase Lactate Dehydrogenase Total Creatine Kinase C-Reactive Protein Total Protein Albumin Triglycerides Arterial Blood Glucose Arterial Blood Ionized Calcium Urine Creatinine Urine Chloride Vancomycin Trough Coronavirus (PCR) Crossmatch 06/23/20 06/23/20 06/23/20 11:30 17:18 23:50 WBC RBC Hgb Hct MCHC RDW Lymph % (Auto) [place] % (Auto) Lymph # (Auto) [place] # (Auto) Eos # (Auto) Seg Neutrophils % Seg Neuts % (Manual) Lymphocytes % (Manual) Monocytes % (Manual) Nucleated RBC % Seg Neutrophils # Seg Neutrophils # Man Lymphocytes # (Manual) Monocytes # (Manual) Eosinophils # (Manual) PT INR APTT D-Dimer Heparin Anti-Xa Level ABG pH POC ABG pCO2 POC ABG pO2 ABG pO2 ABG HCO3 ABG Hemoglobin ABG Oxyhemoglobin ABG Sodium ABG Potassium ABG Chloride ABG Glucose Carboxyhemoglobin Sodium Potassium Chloride Carbon Dioxide BUN Creatinine Glucose POC Glucose 157 H 156 H 162 H Lactic Acid Calcium Phosphorus Magnesium Ferritin Direct Bilirubin AST ALT Alkaline Phosphatase Lactate Dehydrogenase Total Creatine Kinase C-Reactive Protein Total Protein Albumin Triglycerides Arterial Blood Glucose Arterial Blood Ionized Calcium Urine Creatinine Urine Chloride Vancomycin Trough Coronavirus (PCR) Crossmatch 06/24/20 06/24/20 06/24/20 04:41 05:57 06:30 WBC 34.3 H RBC Hgb 10.9 L Hct 32.6 L MCHC RDW Lymph % (Auto) 2.0 L [place] % (Auto) Lymph # (Auto) 0.7 L [place] # (Auto) 1.2 H Eos # (Auto) Seg Neutrophils % Seg Neuts % (Manual) 96.0 H Lymphocytes % (Manual) 3.0 L Monocytes % (Manual) Nucleated RBC % Seg Neutrophils # 32.3 H Seg Neutrophils # Man 32.9 H Lymphocytes # (Manual) 1.0 L Monocytes # (Manual) Eosinophils # (Manual) PT INR APTT D-Dimer Heparin Anti-Xa Level ABG pH POC ABG pCO2 POC ABG pO2 71.1 L ABG pO2 ABG HCO3 ABG Hemoglobin ABG Oxyhemoglobin 92.4 L ABG Sodium 115.6 L ABG Potassium ABG Chloride ABG Glucose 159 H Carboxyhemoglobin Sodium Potassium Chloride Carbon Dioxide BUN Creatinine Glucose POC Glucose 143 H Lactic Acid Calcium Phosphorus Magnesium Ferritin Direct Bilirubin AST ALT Alkaline Phosphatase Lactate Dehydrogenase Total Creatine Kinase C-Reactive Protein Total Protein Albumin Triglycerides Arterial Blood Glucose 159 H Arterial Blood Ionized Calcium 4.2 L Urine Creatinine Urine Chloride Vancomycin Trough Coronavirus (PCR) Crossmatch 06/24/20 06/24/20 06/24/20 07:03 09:37 11:56 WBC RBC Hgb Hct MCHC RDW Lymph % (Auto) [place] % (Auto) Lymph # (Auto) [place] # (Auto) Eos # (Auto) Seg Neutrophils % Seg Neuts % (Manual) Lymphocytes % (Manual) Monocytes % (Manual) Nucleated RBC % Seg Neutrophils # Seg Neutrophils # Man Lymphocytes # (Manual) Monocytes # (Manual) Eosinophils # (Manual) PT INR APTT D-Dimer Heparin Anti-Xa Level 0.26 L ABG pH POC ABG pCO2 POC ABG pO2 ABG pO2 ABG HCO3 ABG Hemoglobin ABG Oxyhemoglobin ABG Sodium ABG Potassium ABG Chloride ABG Glucose Carboxyhemoglobin Sodium Potassium 5.1 H Chloride Carbon Dioxide BUN 103 H Creatinine 5.0 H Glucose 163 H POC Glucose 149 H Lactic Acid Calcium 7.6 L Phosphorus Magnesium Ferritin Direct Bilirubin AST ALT Alkaline Phosphatase Lactate Dehydrogenase Total Creatine Kinase C-Reactive Protein Total Protein Albumin Triglycerides Arterial Blood Glucose Arterial Blood Ionized Calcium Urine Creatinine Urine Chloride Vancomycin Trough Coronavirus (PCR) Crossmatch 06/24/20 06/25/20 06/25/20 18:09 01:05 03:00 WBC RBC Hgb 10.6 L Hct 32.1 L MCHC RDW Lymph % (Auto) [place] % (Auto) Lymph # (Auto) [place] # (Auto) Eos # (Auto) Seg Neutrophils % Seg Neuts % (Manual) Lymphocytes % (Manual) Monocytes % (Manual) Nucleated RBC % Seg Neutrophils # Seg Neutrophils # Man Lymphocytes # (Manual) Monocytes # (Manual) Eosinophils # (Manual) PT INR APTT D-Dimer Heparin Anti-Xa Level ABG pH POC ABG pCO2 POC ABG pO2 ABG pO2 ABG HCO3 ABG Hemoglobin ABG Oxyhemoglobin ABG Sodium ABG Potassium ABG Chloride ABG Glucose Carboxyhemoglobin Sodium Potassium Chloride Carbon Dioxide BUN Creatinine Glucose POC Glucose 141 H 137 H Lactic Acid Calcium Phosphorus Magnesium Ferritin Direct Bilirubin AST ALT Alkaline Phosphatase Lactate Dehydrogenase Total Creatine Kinase C-Reactive Protein Total Protein Albumin Triglycerides Arterial Blood Glucose Arterial Blood Ionized Calcium Urine Creatinine Urine Chloride Vancomycin Trough Coronavirus (PCR) Crossmatch 06/25/20 06/25/20 06/25/20 03:48 05:17 12:08 WBC RBC Hgb Hct MCHC RDW Lymph % (Auto) [place] % (Auto) Lymph # (Auto) [place] # (Auto) Eos # (Auto) Seg Neutrophils % Seg Neuts % (Manual) Lymphocytes % (Manual) Monocytes % (Manual) Nucleated RBC % Seg Neutrophils # Seg Neutrophils # Man Lymphocytes # (Manual) Monocytes # (Manual) Eosinophils # (Manual) PT INR APTT D-Dimer Heparin Anti-Xa Level ABG pH POC ABG pCO2 29.4 L POC ABG pO2 67.1 L ABG pO2 ABG HCO3 ABG Hemoglobin 11.5 L ABG Oxyhemoglobin ABG Sodium 124.1 L ABG Potassium 4.6 H ABG Chloride ABG Glucose 159 H Carboxyhemoglobin Sodium Potassium Chloride Carbon Dioxide BUN Creatinine Glucose POC Glucose 149 H 150 H Lactic Acid Calcium Phosphorus Magnesium Ferritin Direct Bilirubin AST ALT Alkaline Phosphatase Lactate Dehydrogenase Total Creatine Kinase C-Reactive Protein Total Protein Albumin Triglycerides Arterial Blood Glucose 159 H Arterial Blood Ionized Calcium 4.2 L Urine Creatinine Urine Chloride Vancomycin Trough Coronavirus (PCR) Crossmatch 06/25/20 06/25/20 06/25/20 16:27 16:35 17:27 WBC RBC Hgb Hct MCHC RDW Lymph % (Auto) [place] % (Auto) Lymph # (Auto) [place] # (Auto) Eos # (Auto) Seg Neutrophils % Seg Neuts % (Manual) Lymphocytes % (Manual) Monocytes % (Manual) Nucleated RBC % Seg Neutrophils # Seg Neutrophils # Man Lymphocytes # (Manual) Monocytes # (Manual) Eosinophils # (Manual) PT INR APTT D-Dimer Heparin Anti-Xa Level < 0.10 L ABG pH POC ABG pCO2 POC ABG pO2 ABG pO2 ABG HCO3 ABG Hemoglobin ABG Oxyhemoglobin ABG Sodium ABG Potassium ABG Chloride ABG Glucose Carboxyhemoglobin Sodium Potassium Chloride Carbon Dioxide BUN Creatinine Glucose POC Glucose 143 H 156 H Lactic Acid Calcium Phosphorus Magnesium Ferritin Direct Bilirubin AST ALT Alkaline Phosphatase Lactate Dehydrogenase Total Creatine Kinase C-Reactive Protein Total Protein Albumin Triglycerides Arterial Blood Glucose Arterial Blood Ionized Calcium Urine Creatinine Urine Chloride Vancomycin Trough Coronavirus (PCR) Crossmatch 06/25/20 06/25/20 06/25/20 20:00 20:55 23:10 WBC 32.7 H RBC 3.06 L Hgb 9.0 L 9.5 L Hct 26.7 L 28.6 L MCHC RDW Lymph % (Auto) [place] % (Auto) Lymph # (Auto) [place] # (Auto) Eos # (Auto) Seg Neutrophils % Seg Neuts % (Manual) Lymphocytes % (Manual) 2.0 L Monocytes % (Manual) Nucleated RBC % Seg Neutrophils # Seg Neutrophils # Man 30.7 H Lymphocytes # (Manual) 0.7 L Monocytes # (Manual) 1.3 H Eosinophils # (Manual) PT 17.7 H INR 1.47 H APTT 65.8 H* D-Dimer Heparin Anti-Xa Level ABG pH POC ABG pCO2 POC ABG pO2 ABG pO2 ABG HCO3 ABG Hemoglobin ABG Oxyhemoglobin ABG Sodium ABG Potassium ABG Chloride ABG Glucose Carboxyhemoglobin Sodium Potassium Chloride Carbon Dioxide BUN Creatinine Glucose POC Glucose Lactic Acid Calcium Phosphorus Magnesium Ferritin Direct Bilirubin AST ALT Alkaline Phosphatase Lactate Dehydrogenase Total Creatine Kinase C-Reactive Protein Total Protein Albumin Triglycerides Arterial Blood Glucose Arterial Blood Ionized Calcium Urine Creatinine Urine Chloride Vancomycin Trough Coronavirus (PCR) Crossmatch 06/25/20 06/26/20 06/26/20 23:14 01:30 03:25 WBC RBC Hgb Hct MCHC RDW Lymph % (Auto) [place] % (Auto) Lymph # (Auto) [place] # (Auto) Eos # (Auto) Seg Neutrophils % Seg Neuts % (Manual) Lymphocytes % (Manual) Monocytes % (Manual) Nucleated RBC % Seg Neutrophils # Seg Neutrophils # Man Lymphocytes # (Manual) Monocytes # (Manual) Eosinophils # (Manual) PT INR APTT D-Dimer Heparin Anti-Xa Level < 0.10 L ABG pH POC ABG pCO2 POC ABG pO2 ABG pO2 ABG HCO3 ABG Hemoglobin 11.8 L ABG Oxyhemoglobin ABG Sodium 127.1 L ABG Potassium 5.4 H ABG Chloride ABG Glucose 155 H Carboxyhemoglobin 0.3 L Sodium Potassium Chloride Carbon Dioxide BUN Creatinine Glucose POC Glucose 148 H Lactic Acid Calcium Phosphorus Magnesium Ferritin Direct Bilirubin AST ALT Alkaline Phosphatase Lactate Dehydrogenase Total Creatine Kinase C-Reactive Protein Total Protein Albumin Triglycerides Arterial Blood Glucose 155 H Arterial Blood Ionized Calcium 4.2 L Urine Creatinine Urine Chloride Vancomycin Trough Coronavirus (PCR) Crossmatch 06/26/20 06/26/20 06/26/20 03:59 05:14 05:47 WBC 36.5 H RBC 3.26 L Hgb 9.7 L Hct 28.2 L MCHC RDW Lymph % (Auto) [place] % (Auto) Lymph # (Auto) [place] # (Auto) Eos # (Auto) Seg Neutrophils % Seg Neuts % (Manual) 92.0 H Lymphocytes % (Manual) 4.0 L Monocytes % (Manual) Nucleated RBC % Seg Neutrophils # Seg Neutrophils # Man 33.6 H Lymphocytes # (Manual) Monocytes # (Manual) Eosinophils # (Manual) PT INR APTT D-Dimer Heparin Anti-Xa Level ABG pH POC ABG pCO2 POC ABG pO2 ABG pO2 ABG HCO3 ABG Hemoglobin ABG Oxyhemoglobin ABG Sodium ABG Potassium ABG Chloride ABG Glucose Carboxyhemoglobin Sodium Potassium 5.9 H Chloride Carbon Dioxide 20 L BUN 144 H Creatinine 6.4 H Glucose 149 H POC Glucose 128 H Lactic Acid Calcium 7.6 L Phosphorus Magnesium Ferritin Direct Bilirubin AST ALT Alkaline Phosphatase Lactate Dehydrogenase Total Creatine Kinase C-Reactive Protein Total Protein Albumin Triglycerides Arterial Blood Glucose Arterial Blood Ionized Calcium Urine Creatinine Urine Chloride Vancomycin Trough Coronavirus (PCR) Crossmatch 06/26/20 06/26/20 06/26/20 05:47 12:47 17:42 WBC RBC Hgb Hct MCHC RDW Lymph % (Auto) [place] % (Auto) Lymph # (Auto) [place] # (Auto) Eos # (Auto) Seg Neutrophils % Seg Neuts % (Manual) Lymphocytes % (Manual) Monocytes % (Manual) Nucleated RBC % Seg Neutrophils # Seg Neutrophils # Man Lymphocytes # (Manual) Monocytes # (Manual) Eosinophils # (Manual) PT 17.4 H INR 1.44 H APTT D-Dimer Heparin Anti-Xa Level ABG pH POC ABG pCO2 POC ABG pO2 ABG pO2 ABG HCO3 ABG Hemoglobin ABG Oxyhemoglobin ABG Sodium ABG Potassium ABG Chloride ABG Glucose Carboxyhemoglobin Sodium Potassium Chloride Carbon Dioxide BUN Creatinine Glucose POC Glucose 124 H 127 H Lactic Acid Calcium Phosphorus Magnesium Ferritin Direct Bilirubin AST ALT Alkaline Phosphatase Lactate Dehydrogenase Total Creatine Kinase C-Reactive Protein Total Protein Albumin Triglycerides Arterial Blood Glucose Arterial Blood Ionized Calcium Urine Creatinine Urine Chloride Vancomycin Trough Coronavirus (PCR) Crossmatch 06/26/20 06/27/20 06/27/20 23:30 03:32 04:00 WBC RBC Hgb 8.7 L Hct 26.4 L MCHC RDW Lymph % (Auto) [place] % (Auto) Lymph # (Auto) [place] # (Auto) Eos # (Auto) Seg Neutrophils % Seg Neuts % (Manual) Lymphocytes % (Manual) Monocytes % (Manual) Nucleated RBC % Seg Neutrophils # Seg Neutrophils # Man Lymphocytes # (Manual) Monocytes # (Manual) Eosinophils # (Manual) PT INR APTT D-Dimer Heparin Anti-Xa Level ABG pH 7.298 L POC ABG pCO2 POC ABG pO2 ABG pO2 ABG HCO3 ABG Hemoglobin 9.6 L ABG Oxyhemoglobin ABG Sodium 124.4 L ABG Potassium 6.6 H ABG Chloride ABG Glucose 136 H Carboxyhemoglobin Sodium Potassium Chloride Carbon Dioxide BUN Creatinine Glucose POC Glucose 123 H Lactic Acid Calcium Phosphorus Magnesium Ferritin Direct Bilirubin AST ALT Alkaline Phosphatase Lactate Dehydrogenase Total Creatine Kinase C-Reactive Protein Total Protein Albumin Triglycerides Arterial Blood Glucose 136 H Arterial Blood Ionized Calcium 4.1 L Urine Creatinine Urine Chloride Vancomycin Trough Coronavirus (PCR) Crossmatch 06/27/20 06/27/20 06/27/20 05:26 10:14 11:58 WBC RBC Hgb Hct MCHC RDW Lymph % (Auto) [place] % (Auto) Lymph # (Auto) [place] # (Auto) Eos # (Auto) Seg Neutrophils % Seg Neuts % (Manual) Lymphocytes % (Manual) Monocytes % (Manual) Nucleated RBC % Seg Neutrophils # Seg Neutrophils # Man Lymphocytes # (Manual) Monocytes # (Manual) Eosinophils # (Manual) PT INR APTT D-Dimer Heparin Anti-Xa Level ABG pH POC ABG pCO2 POC ABG pO2 ABG pO2 ABG HCO3 ABG Hemoglobin ABG Oxyhemoglobin ABG Sodium ABG Potassium ABG Chloride ABG Glucose Carboxyhemoglobin Sodium 136 L Potassium 7.0 H* Chloride 97.8 L Carbon Dioxide BUN 172 H Creatinine 7.4 H Glucose 129 H POC Glucose 124 H 115 H Lactic Acid Calcium 7.6 L Phosphorus Magnesium Ferritin Direct Bilirubin AST ALT Alkaline Phosphatase Lactate Dehydrogenase Total Creatine Kinase C-Reactive Protein Total Protein Albumin Triglycerides Arterial Blood Glucose Arterial Blood Ionized Calcium Urine Creatinine Urine Chloride Vancomycin Trough Coronavirus (PCR) Crossmatch 06/27/20 06/27/20 06/27/20 17:32 18:30 23:24 WBC RBC Hgb Hct MCHC RDW Lymph % (Auto) [place] % (Auto) Lymph # (Auto) [place] # (Auto) Eos # (Auto) Seg Neutrophils % Seg Neuts % (Manual) Lymphocytes % (Manual) Monocytes % (Manual) Nucleated RBC % Seg Neutrophils # Seg Neutrophils # Man Lymphocytes # (Manual) Monocytes # (Manual) Eosinophils # (Manual) PT INR APTT D-Dimer Heparin Anti-Xa Level ABG pH POC ABG pCO2 POC ABG pO2 ABG pO2 ABG HCO3 ABG Hemoglobin ABG Oxyhemoglobin ABG Sodium ABG Potassium ABG Chloride ABG Glucose Carboxyhemoglobin Sodium Potassium 7.3 H* Chloride Carbon Dioxide BUN Creatinine Glucose POC Glucose 122 H 116 H Lactic Acid Calcium Phosphorus Magnesium Ferritin Direct Bilirubin AST ALT Alkaline Phosphatase Lactate Dehydrogenase Total Creatine Kinase C-Reactive Protein Total Protein Albumin Triglycerides Arterial Blood Glucose Arterial Blood Ionized Calcium Urine Creatinine Urine Chloride Vancomycin Trough Coronavirus (PCR) Crossmatch 06/28/20 06/28/20 06/28/20 00:00 02:16 05:37 WBC RBC Hgb Hct MCHC RDW Lymph % (Auto) [place] % (Auto) Lymph # (Auto) [place] # (Auto) Eos # (Auto) Seg Neutrophils % Seg Neuts % (Manual) Lymphocytes % (Manual) Monocytes % (Manual) Nucleated RBC % Seg Neutrophils # Seg Neutrophils # Man Lymphocytes # (Manual) Monocytes # (Manual) Eosinophils # (Manual) PT INR APTT D-Dimer Heparin Anti-Xa Level ABG pH POC ABG pCO2 POC ABG pO2 79.0 L ABG pO2 ABG HCO3 ABG Hemoglobin 11.7 L ABG Oxyhemoglobin ABG Sodium 128.1 L ABG Potassium 6.6 H ABG Chloride ABG Glucose 124 H Carboxyhemoglobin Sodium Potassium 7.3 H* Chloride Carbon Dioxide BUN Creatinine Glucose POC Glucose 115 H Lactic Acid Calcium Phosphorus Magnesium Ferritin Direct Bilirubin AST ALT Alkaline Phosphatase Lactate Dehydrogenase Total Creatine Kinase C-Reactive Protein Total Protein Albumin Triglycerides Arterial Blood Glucose 124 H Arterial Blood Ionized Calcium 4.2 L Urine Creatinine Urine Chloride Vancomycin Trough Coronavirus (PCR) Crossmatch 06/28/20 06/28/20 06/28/20 10:03 10:03 11:51 WBC 33.6 H RBC 3.03 L Hgb 8.9 L Hct 27.0 L MCHC RDW Lymph % (Auto) [place] % (Auto) Lymph # (Auto) [place] # (Auto) Eos # (Auto) Seg Neutrophils % Seg Neuts % (Manual) Lymphocytes % (Manual) Monocytes % (Manual) Nucleated RBC % Seg Neutrophils # Seg Neutrophils # Man Lymphocytes # (Manual) Monocytes # (Manual) Eosinophils # (Manual) PT INR APTT D-Dimer Heparin Anti-Xa Level ABG pH POC ABG pCO2 POC ABG pO2 ABG pO2 ABG HCO3 ABG Hemoglobin ABG Oxyhemoglobin ABG Sodium ABG Potassium ABG Chloride ABG Glucose Carboxyhemoglobin Sodium 136 L Potassium 6.5 H* Chloride Carbon Dioxide 20 L BUN 129 H Creatinine 5.8 H Glucose 113 H POC Glucose 107 H Lactic Acid Calcium 7.6 L Phosphorus Magnesium Ferritin Direct Bilirubin AST ALT Alkaline Phosphatase Lactate Dehydrogenase Total Creatine Kinase C-Reactive Protein Total Protein Albumin Triglycerides Arterial Blood Glucose Arterial Blood Ionized Calcium Urine Creatinine Urine Chloride Vancomycin Trough Coronavirus (PCR) Crossmatch 06/28/20 06/28/20 06/29/20 17:45 Unknown 03:15 WBC RBC Hgb Hct MCHC RDW Lymph % (Auto) [place] % (Auto) Lymph # (Auto) [place] # (Auto) Eos # (Auto) Seg Neutrophils % Seg Neuts % (Manual) Lymphocytes % (Manual) Monocytes % (Manual) Nucleated RBC % Seg Neutrophils # Seg Neutrophils # Man Lymphocytes # (Manual) Monocytes # (Manual) Eosinophils # (Manual) PT INR APTT D-Dimer Heparin Anti-Xa Level ABG pH POC ABG pCO2 POC ABG pO2 ABG pO2 ABG HCO3 ABG Hemoglobin 7.8 L ABG Oxyhemoglobin ABG Sodium 127.4 L ABG Potassium 5.5 H ABG Chloride 97.0 L ABG Glucose 96 H Carboxyhemoglobin Sodium Potassium 5.4 H Chloride Carbon Dioxide BUN Creatinine Glucose POC Glucose 117 H Lactic Acid Calcium Phosphorus Magnesium Ferritin Direct Bilirubin AST ALT Alkaline Phosphatase Lactate Dehydrogenase Total Creatine Kinase C-Reactive Protein Total Protein Albumin Triglycerides Arterial Blood Glucose 96 H Arterial Blood Ionized Calcium 4.0 L Urine Creatinine Urine Chloride Vancomycin Trough Coronavirus (PCR) Crossmatch 06/29/20 06/29/20 06/29/20 03:45 Unknown Unknown WBC RBC Hgb Hct MCHC RDW Lymph % (Auto) [place] % (Auto) Lymph # (Auto) [place] # (Auto) Eos # (Auto) Seg Neutrophils % Seg Neuts % (Manual) Lymphocytes % (Manual) Monocytes % (Manual) Nucleated RBC % Seg Neutrophils # Seg Neutrophils # Man Lymphocytes # (Manual) Monocytes # (Manual) Eosinophils # (Manual) PT INR APTT D-Dimer Heparin Anti-Xa Level ABG pH POC ABG pCO2 POC ABG pO2 ABG pO2 ABG HCO3 ABG Hemoglobin ABG Oxyhemoglobin ABG Sodium ABG Potassium ABG Chloride ABG Glucose Carboxyhemoglobin Sodium 135 L Potassium 6.0 H 6.1 H* Chloride 94.8 L Carbon Dioxide BUN 109 H 114 H Creatinine 5.5 H Glucose POC Glucose Lactic Acid Calcium 7.4 L Phosphorus Magnesium Ferritin Direct Bilirubin AST 47 H ALT Alkaline Phosphatase Lactate Dehydrogenase Total Creatine Kinase C-Reactive Protein Total Protein 4.9 L Albumin 2.2 L Triglycerides Arterial Blood Glucose Arterial Blood Ionized Calcium Urine Creatinine Urine Chloride Vancomycin Trough Coronavirus (PCR) Crossmatch 06/29/20 06/29/20 06/30/20 Unknown Unknown 03:32 WBC 20.7 H RBC 2.57 L Hgb 7.6 L Hct 23.0 L MCHC RDW Lymph % (Auto) [place] % (Auto) Lymph # (Auto) [place] # (Auto) Eos # (Auto) Seg Neutrophils % Seg Neuts % (Manual) Lymphocytes % (Manual) Monocytes % (Manual) Nucleated RBC % Seg Neutrophils # Seg Neutrophils # Man Lymphocytes # (Manual) Monocytes # (Manual) Eosinophils # (Manual) PT INR APTT D-Dimer Heparin Anti-Xa Level ABG pH POC ABG pCO2 POC ABG pO2 ABG pO2 ABG HCO3 ABG Hemoglobin 11.4 L ABG Oxyhemoglobin ABG Sodium 130.1 L ABG Potassium 5.0 H ABG Chloride ABG Glucose Carboxyhemoglobin Sodium Potassium Chloride Carbon Dioxide BUN Creatinine Glucose POC Glucose Lactic Acid Calcium Phosphorus Magnesium Ferritin Direct Bilirubin AST ALT Alkaline Phosphatase Lactate Dehydrogenase Total Creatine Kinase 618 H C-Reactive Protein Total Protein Albumin Triglycerides Arterial Blood Glucose Arterial Blood Ionized Calcium 3.9 L Urine Creatinine Urine Chloride Vancomycin Trough Coronavirus (PCR) Crossmatch 06/30/20 06/30/20 06/30/20 03:50 03:50 11:39 WBC 13.1 H RBC Hgb Hct MCHC RDW Lymph % (Auto) [place] % (Auto) Lymph # (Auto) [place] # (Auto) Eos # (Auto) Seg Neutrophils % Seg Neuts % (Manual) 95.0 H Lymphocytes % (Manual) 3.0 L Monocytes % (Manual) Nucleated RBC % Seg Neutrophils # Seg Neutrophils # Man 12.4 H Lymphocytes # (Manual) 0.4 L Monocytes # (Manual) Eosinophils # (Manual) PT INR APTT D-Dimer Heparin Anti-Xa Level ABG pH POC ABG pCO2 POC ABG pO2 ABG pO2 ABG HCO3 ABG Hemoglobin ABG Oxyhemoglobin ABG Sodium ABG Potassium ABG Chloride ABG Glucose Carboxyhemoglobin Sodium 135 L Potassium 5.4 H D Chloride 93.6 L Carbon Dioxide BUN 85 H Creatinine 4.6 H Glucose POC Glucose 111 H Lactic Acid Calcium 7.1 L Phosphorus 9.40 H Magnesium Ferritin Direct Bilirubin AST ALT Alkaline Phosphatase Lactate Dehydrogenase Total Creatine Kinase C-Reactive Protein Total Protein Albumin Triglycerides Arterial Blood Glucose Arterial Blood Ionized Calcium Urine Creatinine Urine Chloride Vancomycin Trough Coronavirus (PCR) Crossmatch 06/30/20 06/30/20 07/01/20 13:12 Unknown 03:19 WBC RBC Hgb 7.8 L D Hct 23.2 L D MCHC RDW Lymph % (Auto) [place] % (Auto) Lymph # (Auto) [place] # (Auto) Eos # (Auto) Seg Neutrophils % Seg Neuts % (Manual) Lymphocytes % (Manual) Monocytes % (Manual) Nucleated RBC % Seg Neutrophils # Seg Neutrophils # Man Lymphocytes # (Manual) Monocytes # (Manual) Eosinophils # (Manual) PT INR APTT D-Dimer Heparin Anti-Xa Level ABG pH 7.461 H POC ABG pCO2 POC ABG pO2 77.2 L ABG pO2 ABG HCO3 ABG Hemoglobin 6.9 L ABG Oxyhemoglobin ABG Sodium 128.5 L ABG Potassium ABG Chloride 97.0 L ABG Glucose Carboxyhemoglobin Sodium Potassium Chloride Carbon Dioxide BUN Creatinine Glucose POC Glucose Lactic Acid Calcium Phosphorus Magnesium Ferritin Direct Bilirubin AST ALT Alkaline Phosphatase Lactate Dehydrogenase Total Creatine Kinase C-Reactive Protein Total Protein Albumin Triglycerides Arterial Blood Glucose Arterial Blood Ionized Calcium 3.7 L Urine Creatinine Urine Chloride Vancomycin Trough Coronavirus (PCR) Positive A Crossmatch 07/01/20 07/01/20 07/01/20 06:00 06:00 11:04 WBC 16.7 H RBC 2.16 L Hgb 6.4 L Hct 19.2 L* MCHC RDW Lymph % (Auto) [place] % (Auto) Lymph # (Auto) [place] # (Auto) Eos # (Auto) Seg Neutrophils % Seg Neuts % (Manual) Lymphocytes % (Manual) Monocytes % (Manual) Nucleated RBC % Seg Neutrophils # Seg Neutrophils # Man Lymphocytes # (Manual) Monocytes # (Manual) Eosinophils # (Manual) PT INR APTT D-Dimer Heparin Anti-Xa Level ABG pH POC ABG pCO2 POC ABG pO2 ABG pO2 ABG HCO3 ABG Hemoglobin ABG Oxyhemoglobin ABG Sodium ABG Potassium ABG Chloride ABG Glucose Carboxyhemoglobin Sodium 136 L Potassium Chloride 95.8 L Carbon Dioxide BUN 72 H Creatinine 4.3 H Glucose POC Glucose Lactic Acid Calcium 6.7 L Phosphorus Magnesium Ferritin Direct Bilirubin AST ALT Alkaline Phosphatase Lactate Dehydrogenase Total Creatine Kinase C-Reactive Protein Total Protein Albumin Triglycerides 250 H Arterial Blood Glucose Arterial Blood Ionized Calcium Urine Creatinine Urine Chloride Vancomycin Trough Coronavirus (PCR) Crossmatch See Detail 07/02/20 07/02/20 07/02/20 04:44 06:00 11:33 WBC 14.6 H RBC 2.47 L Hgb 7.4 L Hct 21.8 L MCHC RDW Lymph % (Auto) [place] % (Auto) Lymph # (Auto) [place] # (Auto) Eos # (Auto) Seg Neutrophils % Seg Neuts % (Manual) Lymphocytes % (Manual) Monocytes % (Manual) Nucleated RBC % Seg Neutrophils # Seg Neutrophils # Man Lymphocytes # (Manual) Monocytes # (Manual) Eosinophils # (Manual) PT INR APTT D-Dimer Heparin Anti-Xa Level ABG pH 7.457 H POC ABG pCO2 POC ABG pO2 79.4 L ABG pO2 ABG HCO3 ABG Hemoglobin 8.5 L ABG Oxyhemoglobin ABG Sodium 128.4 L ABG Potassium ABG Chloride 97.0 L ABG Glucose 100 H Carboxyhemoglobin Sodium 133 L Potassium 5.2 H Chloride 93.3 L Carbon Dioxide BUN 66 H Creatinine 4.1 H Glucose 102 H POC Glucose Lactic Acid Calcium 7.2 L Phosphorus Magnesium Ferritin Direct Bilirubin AST ALT Alkaline Phosphatase Lactate Dehydrogenase Total Creatine Kinase C-Reactive Protein Total Protein Albumin Triglycerides Arterial Blood Glucose 100 H Arterial Blood Ionized Calcium 3.9 L Urine Creatinine Urine Chloride Vancomycin Trough Coronavirus (PCR) Crossmatch 07/02/20 07/03/20 07/03/20 11:33 03:54 09:15 WBC 16.6 H RBC 2.44 L Hgb 7.3 L Hct 21.4 L MCHC RDW Lymph % (Auto) [place] % (Auto) Lymph # (Auto) [place] # (Auto) Eos # (Auto) Seg Neutrophils % Seg Neuts % (Manual) Lymphocytes % (Manual) Monocytes % (Manual) Nucleated RBC % Seg Neutrophils # Seg Neutrophils # Man Lymphocytes # (Manual) Monocytes # (Manual) Eosinophils # (Manual) PT INR APTT D-Dimer Heparin Anti-Xa Level ABG pH POC ABG pCO2 POC ABG pO2 66.1 L ABG pO2 ABG HCO3 ABG Hemoglobin 8.0 L ABG Oxyhemoglobin ABG Sodium 124.6 L ABG Potassium 5.5 H ABG Chloride 96.0 L ABG Glucose 111 H Carboxyhemoglobin Sodium Potassium Chloride Carbon Dioxide BUN Creatinine Glucose POC Glucose Lactic Acid Calcium Phosphorus Magnesium Ferritin Direct Bilirubin 0.7 H AST 94 H ALT 60 H Alkaline Phosphatase Lactate Dehydrogenase Total Creatine Kinase C-Reactive Protein Total Protein 4.4 L Albumin 1.9 L Triglycerides Arterial Blood Glucose 111 H Arterial Blood Ionized Calcium 3.8 L Urine Creatinine Urine Chloride Vancomycin Trough Coronavirus (PCR) Crossmatch 07/03/20 07/03/20 07/03/20 09:15 10:10 14:50 WBC RBC Hgb Hct MCHC RDW Lymph % (Auto) [place] % (Auto) Lymph # (Auto) [place] # (Auto) Eos # (Auto) Seg Neutrophils % Seg Neuts % (Manual) Lymphocytes % (Manual) Monocytes % (Manual) Nucleated RBC % Seg Neutrophils # Seg Neutrophils # Man Lymphocytes # (Manual) Monocytes # (Manual) Eosinophils # (Manual) PT INR APTT D-Dimer 6608.00 H Heparin Anti-Xa Level ABG pH POC ABG pCO2 POC ABG pO2 ABG pO2 ABG HCO3 ABG Hemoglobin ABG Oxyhemoglobin ABG Sodium ABG Potassium ABG Chloride ABG Glucose Carboxyhemoglobin Sodium 133 L Potassium 6.2 H* Chloride 93.1 L Carbon Dioxide BUN 89 H Creatinine 5.1 H Glucose POC Glucose Lactic Acid Calcium 7.0 L Phosphorus Magnesium Ferritin Direct Bilirubin AST ALT Alkaline Phosphatase Lactate Dehydrogenase Total Creatine Kinase C-Reactive Protein Total Protein Albumin Triglycerides Arterial Blood Glucose Arterial Blood Ionized Calcium Urine Creatinine Urine Chloride Vancomycin Trough Coronavirus (PCR) Positive A Crossmatch 07/03/20 07/03/20 07/03/20 14:50 14:50 14:50 WBC RBC Hgb Hct MCHC RDW Lymph % (Auto) [place] % (Auto) Lymph # (Auto) [place] # (Auto) Eos # (Auto) Seg Neutrophils % Seg Neuts % (Manual) Lymphocytes % (Manual) Monocytes % (Manual) Nucleated RBC % Seg Neutrophils # Seg Neutrophils # Man Lymphocytes # (Manual) Monocytes # (Manual) Eosinophils # (Manual) PT INR APTT D-Dimer Heparin Anti-Xa Level ABG pH POC ABG pCO2 POC ABG pO2 ABG pO2 ABG HCO3 ABG Hemoglobin ABG Oxyhemoglobin ABG Sodium ABG Potassium ABG Chloride ABG Glucose Carboxyhemoglobin Sodium Potassium Chloride Carbon Dioxide BUN Creatinine Glucose POC Glucose Lactic Acid < 0.20 L Calcium Phosphorus Magnesium Ferritin 1171.0 H Direct Bilirubin AST ALT Alkaline Phosphatase Lactate Dehydrogenase 525 H Total Creatine Kinase C-Reactive Protein 31.50 H Total Protein Albumin Triglycerides Arterial Blood Glucose Arterial Blood Ionized Calcium Urine Creatinine Urine Chloride Vancomycin Trough Coronavirus (PCR) Crossmatch 07/03/20 07/04/20 07/04/20 16:47 05:20 05:20 WBC 11.8 H RBC 2.32 L Hgb 6.7 L Hct 20.8 L MCHC RDW Lymph % (Auto) 2.6 L [place] % (Auto) Lymph # (Auto) 0.3 L [place] # (Auto) Eos # (Auto) Seg Neutrophils % Seg Neuts % (Manual) Lymphocytes % (Manual) Monocytes % (Manual) Nucleated RBC % Seg Neutrophils # 11.0 H Seg Neutrophils # Man Lymphocytes # (Manual) Monocytes # (Manual) Eosinophils # (Manual) PT INR APTT D-Dimer Heparin Anti-Xa Level ABG pH POC ABG pCO2 POC ABG pO2 ABG pO2 ABG HCO3 ABG Hemoglobin ABG Oxyhemoglobin ABG Sodium ABG Potassium ABG Chloride ABG Glucose Carboxyhemoglobin Sodium Potassium 6.0 H Chloride 97.8 L Carbon Dioxide BUN 75 H Creatinine 4.5 H Glucose 121 H POC Glucose 107 H Lactic Acid Calcium 7.9 L Phosphorus Magnesium Ferritin Direct Bilirubin AST ALT Alkaline Phosphatase Lactate Dehydrogenase Total Creatine Kinase C-Reactive Protein Total Protein Albumin Triglycerides Arterial Blood Glucose Arterial Blood Ionized Calcium Urine Creatinine Urine Chloride Vancomycin Trough Coronavirus (PCR) Crossmatch 07/04/20 07/04/20 07/04/20 05:20 05:50 09:25 WBC RBC Hgb Hct MCHC RDW Lymph % (Auto) [place] % (Auto) Lymph # (Auto) [place] # (Auto) Eos # (Auto) Seg Neutrophils % Seg Neuts % (Manual) Lymphocytes % (Manual) Monocytes % (Manual) Nucleated RBC % Seg Neutrophils # Seg Neutrophils # Man Lymphocytes # (Manual) Monocytes # (Manual) Eosinophils # (Manual) PT INR APTT D-Dimer Heparin Anti-Xa Level ABG pH 7.324 L POC ABG pCO2 POC ABG pO2 ABG pO2 98.9 H ABG HCO3 26.8 H ABG Hemoglobin < 5.1 L ABG Oxyhemoglobin ABG Sodium ABG Potassium ABG Chloride ABG Glucose Carboxyhemoglobin Sodium Potassium Chloride Carbon Dioxide BUN Creatinine Glucose POC Glucose 114 H Lactic Acid Calcium Phosphorus Magnesium Ferritin Direct Bilirubin AST ALT Alkaline Phosphatase Lactate Dehydrogenase Total Creatine Kinase C-Reactive Protein Total Protein Albumin Triglycerides Arterial Blood Glucose Arterial Blood Ionized Calcium Urine Creatinine Urine Chloride Vancomycin Trough Coronavirus (PCR) Crossmatch See Detail 07/04/20 07/04/20 07/04/20 12:33 17:41 23:04 WBC RBC Hgb Hct MCHC RDW Lymph % (Auto) [place] % (Auto) Lymph # (Auto) [place] # (Auto) Eos # (Auto) Seg Neutrophils % Seg Neuts % (Manual) Lymphocytes % (Manual) Monocytes % (Manual) Nucleated RBC % Seg Neutrophils # Seg Neutrophils # Man Lymphocytes # (Manual) Monocytes # (Manual) Eosinophils # (Manual) PT INR APTT D-Dimer Heparin Anti-Xa Level ABG pH POC ABG pCO2 POC ABG pO2 ABG pO2 ABG HCO3 ABG Hemoglobin ABG Oxyhemoglobin ABG Sodium ABG Potassium ABG Chloride ABG Glucose Carboxyhemoglobin Sodium Potassium Chloride Carbon Dioxide BUN Creatinine Glucose POC Glucose 119 H 109 H 116 H Lactic Acid Calcium Phosphorus Magnesium Ferritin Direct Bilirubin AST ALT Alkaline Phosphatase Lactate Dehydrogenase Total Creatine Kinase C-Reactive Protein Total Protein Albumin Triglycerides Arterial Blood Glucose Arterial Blood Ionized Calcium Urine Creatinine Urine Chloride Vancomycin Trough Coronavirus (PCR) Crossmatch 07/05/20 07/05/20 07/05/20 04:30 08:21 08:21 WBC RBC 2.77 L Hgb 7.9 L Hct 23.9 L MCHC RDW 16.7 H Lymph % (Auto) 7.5 L [place] % (Auto) Lymph # (Auto) 0.7 L [place] # (Auto) Eos # (Auto) Seg Neutrophils % 85.8 H Seg Neuts % (Manual) Lymphocytes % (Manual) Monocytes % (Manual) Nucleated RBC % Seg Neutrophils # 7.8 H Seg Neutrophils # Man Lymphocytes # (Manual) Monocytes # (Manual) Eosinophils # (Manual) PT INR APTT D-Dimer Heparin Anti-Xa Level ABG pH 7.295 L POC ABG pCO2 POC ABG pO2 ABG pO2 151.9 H ABG HCO3 26.8 H ABG Hemoglobin 7.3 L ABG Oxyhemoglobin ABG Sodium ABG Potassium ABG Chloride ABG Glucose Carboxyhemoglobin Sodium Potassium Chloride Carbon Dioxide BUN Creatinine Glucose POC Glucose Lactic Acid Calcium Phosphorus Magnesium Ferritin Direct Bilirubin AST ALT Alkaline Phosphatase Lactate Dehydrogenase Total Creatine Kinase C-Reactive Protein Total Protein Albumin Triglycerides 258 H Arterial Blood Glucose Arterial Blood Ionized Calcium Urine Creatinine Urine Chloride Vancomycin Trough Coronavirus (PCR) Crossmatch 07/05/20 07/05/20 07/06/20 08:21 12:12 04:29 WBC RBC Hgb Hct MCHC RDW Lymph % (Auto) [place] % (Auto) Lymph # (Auto) [place] # (Auto) Eos # (Auto) Seg Neutrophils % Seg Neuts % (Manual) Lymphocytes % (Manual) Monocytes % (Manual) Nucleated RBC % Seg Neutrophils # Seg Neutrophils # Man Lymphocytes # (Manual) Monocytes # (Manual) Eosinophils # (Manual) PT INR APTT D-Dimer Heparin Anti-Xa Level ABG pH 7.291 L POC ABG pCO2 51.3 H POC ABG pO2 ABG pO2 ABG HCO3 ABG Hemoglobin 8.5 L ABG Oxyhemoglobin ABG Sodium 129.6 L ABG Potassium 4.8 H ABG Chloride 96.0 L ABG Glucose Carboxyhemoglobin Sodium 133 L Potassium 5.6 H Chloride 94.4 L Carbon Dioxide BUN 80 H Creatinine 4.2 H Glucose 114 H POC Glucose 106 H Lactic Acid Calcium 7.6 L Phosphorus Magnesium Ferritin Direct Bilirubin 0.5 H AST 75 H ALT 86 H Alkaline Phosphatase Lactate Dehydrogenase Total Creatine Kinase C-Reactive Protein Total Protein 5.6 L D Albumin 1.9 L Triglycerides Arterial Blood Glucose Arterial Blood Ionized Calcium 4.2 L Urine Creatinine Urine Chloride Vancomycin Trough Coronavirus (PCR) Crossmatch 07/06/20 07/06/20 07/06/20 11:35 11:35 12:16 WBC RBC 2.54 L Hgb 7.5 L Hct 21.5 L MCHC 35 H RDW 15.7 H Lymph % (Auto) [place] % (Auto) Lymph # (Auto) [place] # (Auto) Eos # (Auto) Seg Neutrophils % Seg Neuts % (Manual) Lymphocytes % (Manual) Monocytes % (Manual) Nucleated RBC % Seg Neutrophils # Seg Neutrophils # Man Lymphocytes # (Manual) Monocytes # (Manual) Eosinophils # (Manual) PT INR APTT D-Dimer Heparin Anti-Xa Level ABG pH POC ABG pCO2 POC ABG pO2 ABG pO2 ABG HCO3 ABG Hemoglobin ABG Oxyhemoglobin ABG Sodium ABG Potassium ABG Chloride ABG Glucose Carboxyhemoglobin Sodium 130 L Potassium Chloride 92.2 L Carbon Dioxide 19 L D BUN 107 H Creatinine 5.1 H Glucose 106 H POC Glucose 106 H Lactic Acid Calcium 7.5 L Phosphorus Magnesium Ferritin Direct Bilirubin AST ALT Alkaline Phosphatase Lactate Dehydrogenase Total Creatine Kinase C-Reactive Protein Total Protein Albumin Triglycerides Arterial Blood Glucose Arterial Blood Ionized Calcium Urine Creatinine Urine Chloride Vancomycin Trough Coronavirus (PCR) Crossmatch 07/06/20 07/06/20 07/06/20 17:01 21:56 23:41 WBC RBC Hgb Hct MCHC RDW Lymph % (Auto) [place] % (Auto) Lymph # (Auto) [place] # (Auto) Eos # (Auto) Seg Neutrophils % Seg Neuts % (Manual) Lymphocytes % (Manual) Monocytes % (Manual) Nucleated RBC % Seg Neutrophils # Seg Neutrophils # Man Lymphocytes # (Manual) Monocytes # (Manual) Eosinophils # (Manual) PT INR APTT D-Dimer Heparin Anti-Xa Level ABG pH POC ABG pCO2 POC ABG pO2 ABG pO2 ABG HCO3 ABG Hemoglobin ABG Oxyhemoglobin ABG Sodium ABG Potassium ABG Chloride ABG Glucose Carboxyhemoglobin Sodium 135 L Potassium 5.1 H Chloride Carbon Dioxide BUN 73 H Creatinine 4.0 H Glucose 112 H POC Glucose 109 H 111 H Lactic Acid Calcium 7.8 L Phosphorus Magnesium Ferritin Direct Bilirubin AST ALT Alkaline Phosphatase Lactate Dehydrogenase Total Creatine Kinase C-Reactive Protein Total Protein Albumin Triglycerides Arterial Blood Glucose Arterial Blood Ionized Calcium Urine Creatinine Urine Chloride Vancomycin Trough Coronavirus (PCR) Crossmatch 07/07/20 07/07/20 07/07/20 04:18 05:04 05:29 WBC RBC 2.46 L Hgb 7.6 L Hct 21.5 L MCHC 35 H RDW 16.5 H Lymph % (Auto) [place] % (Auto) Lymph # (Auto) [place] # (Auto) Eos # (Auto) Seg Neutrophils % Seg Neuts % (Manual) 82.0 H Lymphocytes % (Manual) Monocytes % (Manual) Nucleated RBC % 1.0 H Seg Neutrophils # Seg Neutrophils # Man Lymphocytes # (Manual) 1.1 L Monocytes # (Manual) Eosinophils # (Manual) PT INR APTT D-Dimer Heparin Anti-Xa Level ABG pH POC ABG pCO2 POC ABG pO2 79.6 L ABG pO2 ABG HCO3 ABG Hemoglobin 8.2 L ABG Oxyhemoglobin ABG Sodium 133.3 L ABG Potassium 4.7 H ABG Chloride ABG Glucose 135 H Carboxyhemoglobin Sodium Potassium Chloride Carbon Dioxide BUN Creatinine Glucose POC Glucose 112 H Lactic Acid Calcium Phosphorus Magnesium Ferritin Direct Bilirubin AST ALT Alkaline Phosphatase Lactate Dehydrogenase Total Creatine Kinase C-Reactive Protein Total Protein Albumin Triglycerides Arterial Blood Glucose 135 H Arterial Blood Ionized Calcium 4.5 L Urine Creatinine Urine Chloride Vancomycin Trough Coronavirus (PCR) Crossmatch 07/07/20 07/07/20 07/07/20 10:17 12:18 17:43 WBC RBC Hgb Hct MCHC RDW Lymph % (Auto) [place] % (Auto) Lymph # (Auto) [place] # (Auto) Eos # (Auto) Seg Neutrophils % Seg Neuts % (Manual) Lymphocytes % (Manual) Monocytes % (Manual) Nucleated RBC % Seg Neutrophils # Seg Neutrophils # Man Lymphocytes # (Manual) Monocytes # (Manual) Eosinophils # (Manual) PT INR APTT D-Dimer Heparin Anti-Xa Level ABG pH POC ABG pCO2 POC ABG pO2 ABG pO2 ABG HCO3 ABG Hemoglobin ABG Oxyhemoglobin ABG Sodium ABG Potassium ABG Chloride ABG Glucose Carboxyhemoglobin Sodium 136 L Potassium Chloride 96.8 L Carbon Dioxide BUN 82 H Creatinine 4.3 H Glucose 129 H POC Glucose 108 H 116 H Lactic Acid Calcium 7.8 L Phosphorus Magnesium Ferritin Direct Bilirubin AST ALT Alkaline Phosphatase Lactate Dehydrogenase Total Creatine Kinase C-Reactive Protein Total Protein Albumin Triglycerides Arterial Blood Glucose Arterial Blood Ionized Calcium Urine Creatinine Urine Chloride Vancomycin Trough Coronavirus (PCR) Crossmatch 07/07/20 07/08/20 07/08/20 23:31 04:00 04:00 WBC RBC 2.52 L Hgb 7.3 L Hct 22.2 L MCHC RDW 16.6 H Lymph % (Auto) 11.5 L [place] % (Auto) Lymph # (Auto) [place] # (Auto) Eos # (Auto) Seg Neutrophils % 78.2 H Seg Neuts % (Manual) Lymphocytes % (Manual) Monocytes % (Manual) Nucleated RBC % Seg Neutrophils # 8.0 H Seg Neutrophils # Man Lymphocytes # (Manual) Monocytes # (Manual) Eosinophils # (Manual) PT INR APTT D-Dimer Heparin Anti-Xa Level ABG pH POC ABG pCO2 POC ABG pO2 ABG pO2 ABG HCO3 ABG Hemoglobin ABG Oxyhemoglobin ABG Sodium ABG Potassium ABG Chloride ABG Glucose Carboxyhemoglobin Sodium 132 L Potassium 5.4 H Chloride 92.5 L Carbon Dioxide BUN 98 H Creatinine 4.9 H Glucose 105 H POC Glucose 117 H Lactic Acid Calcium 7.9 L Phosphorus Magnesium Ferritin Direct Bilirubin AST ALT Alkaline Phosphatase Lactate Dehydrogenase Total Creatine Kinase C-Reactive Protein Total Protein Albumin Triglycerides Arterial Blood Glucose Arterial Blood Ionized Calcium Urine Creatinine Urine Chloride Vancomycin Trough Coronavirus (PCR) Crossmatch 07/08/20 07/08/20 07/08/20 04:09 11:34 17:05 WBC RBC Hgb Hct MCHC RDW Lymph % (Auto) [place] % (Auto) Lymph # (Auto) [place] # (Auto) Eos # (Auto) Seg Neutrophils % Seg Neuts % (Manual) Lymphocytes % (Manual) Monocytes % (Manual) Nucleated RBC % Seg Neutrophils # Seg Neutrophils # Man Lymphocytes # (Manual) Monocytes # (Manual) Eosinophils # (Manual) PT INR APTT D-Dimer Heparin Anti-Xa Level ABG pH 7.220 L POC ABG pCO2 60.5 H POC ABG pO2 ABG pO2 ABG HCO3 ABG Hemoglobin 8.2 L ABG Oxyhemoglobin ABG Sodium 131.3 L ABG Potassium 5.2 H ABG Chloride ABG Glucose 103 H Carboxyhemoglobin Sodium Potassium Chloride Carbon Dioxide BUN Creatinine Glucose POC Glucose 140 H 125 H Lactic Acid Calcium Phosphorus Magnesium Ferritin Direct Bilirubin AST ALT Alkaline Phosphatase Lactate Dehydrogenase Total Creatine Kinase C-Reactive Protein Total Protein Albumin Triglycerides Arterial Blood Glucose 103 H Arterial Blood Ionized Calcium 4.3 L Urine Creatinine Urine Chloride Vancomycin Trough Coronavirus (PCR) Crossmatch 07/08/20 07/08/20 07/09/20 20:21 23:43 05:10 WBC RBC Hgb Hct MCHC RDW Lymph % (Auto) [place] % (Auto) Lymph # (Auto) [place] # (Auto) Eos # (Auto) Seg Neutrophils % Seg Neuts % (Manual) Lymphocytes % (Manual) Monocytes % (Manual) Nucleated RBC % Seg Neutrophils # Seg Neutrophils # Man Lymphocytes # (Manual) Monocytes # (Manual) Eosinophils # (Manual) PT INR APTT D-Dimer Heparin Anti-Xa Level ABG pH 7.20 L POC ABG pCO2 69.8 H POC ABG pO2 138.9 H 76.1 L ABG pO2 ABG HCO3 ABG Hemoglobin 11.9 L 8.4 L ABG Oxyhemoglobin ABG Sodium 133.1 L 131.2 L ABG Potassium 5.0 H 4.7 H ABG Chloride ABG Glucose 120 H 102 H Carboxyhemoglobin Sodium Potassium Chloride Carbon Dioxide BUN Creatinine Glucose POC Glucose 118 H Lactic Acid Calcium Phosphorus Magnesium Ferritin Direct Bilirubin AST ALT Alkaline Phosphatase Lactate Dehydrogenase Total Creatine Kinase C-Reactive Protein Total Protein Albumin Triglycerides Arterial Blood Glucose 120 H 102 H Arterial Blood Ionized Calcium 4.4 L 4.3 L Urine Creatinine Urine Chloride Vancomycin Trough Coronavirus (PCR) Crossmatch 07/09/20 07/09/20 07/09/20 11:51 17:04 21:00 WBC RBC Hgb Hct MCHC RDW Lymph % (Auto) [place] % (Auto) Lymph # (Auto) [place] # (Auto) Eos # (Auto) Seg Neutrophils % Seg Neuts % (Manual) Lymphocytes % (Manual) Monocytes % (Manual) Nucleated RBC % Seg Neutrophils # Seg Neutrophils # Man Lymphocytes # (Manual) Monocytes # (Manual) Eosinophils # (Manual) PT INR APTT D-Dimer Heparin Anti-Xa Level ABG pH POC ABG pCO2 POC ABG pO2 114.2 H ABG pO2 ABG HCO3 ABG Hemoglobin 7.8 L ABG Oxyhemoglobin ABG Sodium 132.3 L ABG Potassium 4.6 H ABG Chloride ABG Glucose Carboxyhemoglobin Sodium Potassium Chloride Carbon Dioxide BUN Creatinine Glucose POC Glucose 113 H 111 H Lactic Acid Calcium Phosphorus Magnesium Ferritin Direct Bilirubin AST ALT Alkaline Phosphatase Lactate Dehydrogenase Total Creatine Kinase C-Reactive Protein Total Protein Albumin Triglycerides Arterial Blood Glucose Arterial Blood Ionized Calcium 4.4 L Urine Creatinine Urine Chloride Vancomycin Trough Coronavirus (PCR) Crossmatch 07/10/20 07/10/20 07/10/20 03:49 03:55 03:55 WBC 18.1 H RBC 2.37 L Hgb 6.8 L Hct 20.7 L MCHC RDW 16.9 H Lymph % (Auto) [place] % (Auto) Lymph # (Auto) [place] # (Auto) Eos # (Auto) Seg Neutrophils % Seg Neuts % (Manual) 79.0 H Lymphocytes % (Manual) 10.0 L Monocytes % (Manual) Nucleated RBC % 1.0 H Seg Neutrophils # Seg Neutrophils # Man 14.3 H Lymphocytes # (Manual) Monocytes # (Manual) Eosinophils # (Manual) 0.7 H PT INR APTT D-Dimer Heparin Anti-Xa Level ABG pH POC ABG pCO2 POC ABG pO2 ABG pO2 ABG HCO3 ABG Hemoglobin 7.7 L ABG Oxyhemoglobin ABG Sodium 130.3 L ABG Potassium 4.6 H ABG Chloride ABG Glucose Carboxyhemoglobin Sodium 136 L Potassium Chloride 96.0 L Carbon Dioxide BUN 76 H Creatinine 3.6 H Glucose POC Glucose Lactic Acid Calcium 7.4 L Phosphorus Magnesium Ferritin Direct Bilirubin AST ALT Alkaline Phosphatase Lactate Dehydrogenase Total Creatine Kinase C-Reactive Protein Total Protein Albumin Triglycerides Arterial Blood Glucose Arterial Blood Ionized Calcium 4.2 L Urine Creatinine Urine Chloride Vancomycin Trough Coronavirus (PCR) Crossmatch 07/10/20 07/11/20 07/11/20 13:24 04:08 06:52 WBC 26.0 H RBC 2.91 L Hgb 8.2 L Hct 24.8 L MCHC RDW 17.2 H Lymph % (Auto) [place] % (Auto) Lymph # (Auto) [place] # (Auto) Eos # (Auto) Seg Neutrophils % Seg Neuts % (Manual) Lymphocytes % (Manual) 1.0 L Monocytes % (Manual) 11.0 H Nucleated RBC % Seg Neutrophils # Seg Neutrophils # Man 16.9 H Lymphocytes # (Manual) 0.3 L Monocytes # (Manual) 2.9 H Eosinophils # (Manual) 1.0 H PT INR APTT D-Dimer Heparin Anti-Xa Level ABG pH POC ABG pCO2 POC ABG pO2 ABG pO2 ABG HCO3 ABG Hemoglobin 8.5 L ABG Oxyhemoglobin ABG Sodium 130.6 L ABG Potassium 4.9 H ABG Chloride ABG Glucose 105 H Carboxyhemoglobin Sodium Potassium Chloride Carbon Dioxide BUN Creatinine Glucose POC Glucose Lactic Acid Calcium Phosphorus Magnesium Ferritin Direct Bilirubin AST ALT Alkaline Phosphatase Lactate Dehydrogenase Total Creatine Kinase C-Reactive Protein Total Protein Albumin Triglycerides Arterial Blood Glucose 105 H Arterial Blood Ionized Calcium 4.1 L Urine Creatinine Urine Chloride Vancomycin Trough Coronavirus (PCR) Crossmatch See Detail 07/11/20 07/11/20 07/11/20 06:52 08:48 11:39 WBC RBC Hgb Hct MCHC RDW Lymph % (Auto) [place] % (Auto) Lymph # (Auto) [place] # (Auto) Eos # (Auto) Seg Neutrophils % Seg Neuts % (Manual) Lymphocytes % (Manual) Monocytes % (Manual) Nucleated RBC % Seg Neutrophils # Seg Neutrophils # Man Lymphocytes # (Manual) Monocytes # (Manual) Eosinophils # (Manual) PT INR APTT D-Dimer Heparin Anti-Xa Level ABG pH POC ABG pCO2 POC ABG pO2 ABG pO2 ABG HCO3 ABG Hemoglobin ABG Oxyhemoglobin ABG Sodium ABG Potassium ABG Chloride ABG Glucose Carboxyhemoglobin Sodium 133 L 134 L Potassium 5.3 H Chloride 93.5 L 94.8 L Carbon Dioxide BUN 101 H 99 H Creatinine 4.5 H 4.6 H Glucose 102 H POC Glucose 116 H Lactic Acid Calcium 7.8 L 7.6 L Phosphorus Magnesium Ferritin Direct Bilirubin AST ALT Alkaline Phosphatase Lactate Dehydrogenase Total Creatine Kinase C-Reactive Protein Total Protein Albumin Triglycerides Arterial Blood Glucose Arterial Blood Ionized Calcium Urine Creatinine Urine Chloride Vancomycin Trough Coronavirus (PCR) Crossmatch 07/11/20 07/12/20 07/12/20 17:23 00:04 03:20 WBC RBC Hgb Hct MCHC RDW Lymph % (Auto) [place] % (Auto) Lymph # (Auto) [place] # (Auto) Eos # (Auto) Seg Neutrophils % Seg Neuts % (Manual) Lymphocytes % (Manual) Monocytes % (Manual) Nucleated RBC % Seg Neutrophils # Seg Neutrophils # Man Lymphocytes # (Manual) Monocytes # (Manual) Eosinophils # (Manual) PT INR APTT D-Dimer Heparin Anti-Xa Level ABG pH POC ABG pCO2 49.1 H POC ABG pO2 130.3 H ABG pO2 ABG HCO3 ABG Hemoglobin 8.7 L ABG Oxyhemoglobin ABG Sodium 135.2 L ABG Potassium 4.7 H ABG Chloride ABG Glucose 128 H Carboxyhemoglobin Sodium Potassium Chloride Carbon Dioxide BUN Creatinine Glucose POC Glucose 142 H 113 H Lactic Acid Calcium Phosphorus Magnesium Ferritin Direct Bilirubin AST ALT Alkaline Phosphatase Lactate Dehydrogenase Total Creatine Kinase C-Reactive Protein Total Protein Albumin Triglycerides Arterial Blood Glucose 128 H Arterial Blood Ionized Calcium 4.4 L Urine Creatinine Urine Chloride Vancomycin Trough Coronavirus (PCR) Crossmatch 07/12/20 07/12/20 07/12/20 03:40 03:40 04:00 WBC 24.3 H RBC 2.83 L Hgb 8.0 L Hct 24.9 L MCHC RDW 17.7 H Lymph % (Auto) 5.6 L [place] % (Auto) 7.4 H Lymph # (Auto) [place] # (Auto) 1.8 H Eos # (Auto) 0.7 H Seg Neutrophils % 83.9 H Seg Neuts % (Manual) Lymphocytes % (Manual) Monocytes % (Manual) Nucleated RBC % Seg Neutrophils # 20.4 H Seg Neutrophils # Man Lymphocytes # (Manual) Monocytes # (Manual) Eosinophils # (Manual) PT INR APTT D-Dimer Heparin Anti-Xa Level ABG pH POC ABG pCO2 POC ABG pO2 ABG pO2 ABG HCO3 ABG Hemoglobin ABG Oxyhemoglobin ABG Sodium ABG Potassium ABG Chloride ABG Glucose Carboxyhemoglobin Sodium 134 L Potassium Chloride 95.5 L Carbon Dioxide BUN 79 H Creatinine 3.7 H Glucose 127 H POC Glucose Lactic Acid Calcium 7.8 L Phosphorus Magnesium Ferritin Direct Bilirubin AST ALT Alkaline Phosphatase Lactate Dehydrogenase Total Creatine Kinase C-Reactive Protein Total Protein Albumin Triglycerides 246 H Arterial Blood Glucose Arterial Blood Ionized Calcium Urine Creatinine Urine Chloride Vancomycin Trough Coronavirus (PCR) Crossmatch 07/12/20 07/12/20 07/12/20 05:48 11:50 17:29 WBC RBC Hgb Hct MCHC RDW Lymph % (Auto) [place] % (Auto) Lymph # (Auto) [place] # (Auto) Eos # (Auto) Seg Neutrophils % Seg Neuts % (Manual) Lymphocytes % (Manual) Monocytes % (Manual) Nucleated RBC % Seg Neutrophils # Seg Neutrophils # Man Lymphocytes # (Manual) Monocytes # (Manual) Eosinophils # (Manual) PT INR APTT D-Dimer Heparin Anti-Xa Level ABG pH POC ABG pCO2 POC ABG pO2 ABG pO2 ABG HCO3 ABG Hemoglobin ABG Oxyhemoglobin ABG Sodium ABG Potassium ABG Chloride ABG Glucose Carboxyhemoglobin Sodium Potassium Chloride Carbon Dioxide BUN Creatinine Glucose POC Glucose 136 H 113 H 110 H Lactic Acid Calcium Phosphorus Magnesium Ferritin Direct Bilirubin AST ALT Alkaline Phosphatase Lactate Dehydrogenase Total Creatine Kinase C-Reactive Protein Total Protein Albumin Triglycerides Arterial Blood Glucose Arterial Blood Ionized Calcium Urine Creatinine Urine Chloride Vancomycin Trough Coronavirus (PCR) Crossmatch 07/12/20 07/13/20 07/13/20 23:43 03:11 06:59 WBC RBC Hgb Hct MCHC RDW Lymph % (Auto) [place] % (Auto) Lymph # (Auto) [place] # (Auto) Eos # (Auto) Seg Neutrophils % Seg Neuts % (Manual) Lymphocytes % (Manual) Monocytes % (Manual) Nucleated RBC % Seg Neutrophils # Seg Neutrophils # Man Lymphocytes # (Manual) Monocytes # (Manual) Eosinophils # (Manual) PT INR APTT D-Dimer Heparin Anti-Xa Level ABG pH POC ABG pCO2 49.0 H POC ABG pO2 69.6 L ABG pO2 ABG HCO3 ABG Hemoglobin 8.5 L ABG Oxyhemoglobin 90.5 L ABG Sodium 133.6 L ABG Potassium 5.1 H ABG Chloride ABG Glucose 104 H Carboxyhemoglobin Sodium 133 L Potassium 5.7 H Chloride 96.3 L Carbon Dioxide 20 L D BUN 102 H Creatinine 4.4 H Glucose 101 H POC Glucose 120 H Lactic Acid Calcium 7.9 L Phosphorus Magnesium Ferritin Direct Bilirubin AST 61 H ALT 85 H Alkaline Phosphatase 144 H Lactate Dehydrogenase Total Creatine Kinase C-Reactive Protein Total Protein 5.4 L Albumin 2.0 L Triglycerides Arterial Blood Glucose 104 H Arterial Blood Ionized Calcium 4.3 L Urine Creatinine Urine Chloride Vancomycin Trough Coronavirus (PCR) Crossmatch 07/13/20 07/13/20 07/13/20 08:48 12:14 15:12 WBC 27.5 H RBC 3.03 L Hgb 8.7 L Hct 27.0 L MCHC RDW 18.0 H Lymph % (Auto) [place] % (Auto) Lymph # (Auto) [place] # (Auto) Eos # (Auto) Seg Neutrophils % Seg Neuts % (Manual) Lymphocytes % (Manual) Monocytes % (Manual) Nucleated RBC % Seg Neutrophils # Seg Neutrophils # Man Lymphocytes # (Manual) Monocytes # (Manual) Eosinophils # (Manual) PT INR APTT D-Dimer Heparin Anti-Xa Level ABG pH POC ABG pCO2 POC ABG pO2 ABG pO2 ABG HCO3 ABG Hemoglobin ABG Oxyhemoglobin ABG Sodium ABG Potassium ABG Chloride ABG Glucose Carboxyhemoglobin Sodium Potassium 5.5 H Chloride Carbon Dioxide BUN 88 H Creatinine 3.8 H Glucose 133 H POC Glucose 134 H Lactic Acid Calcium 7.5 L Phosphorus Magnesium Ferritin Direct Bilirubin AST ALT Alkaline Phosphatase Lactate Dehydrogenase Total Creatine Kinase C-Reactive Protein Total Protein Albumin Triglycerides Arterial Blood Glucose Arterial Blood Ionized Calcium Urine Creatinine Urine Chloride Vancomycin Trough Coronavirus (PCR) Crossmatch 07/13/20 07/13/20 07/13/20 16:46 16:47 18:46 WBC RBC Hgb 7.4 L Hct 22.1 L MCHC RDW Lymph % (Auto) [place] % (Auto) Lymph # (Auto) [place] # (Auto) Eos # (Auto) Seg Neutrophils % Seg Neuts % (Manual) Lymphocytes % (Manual) Monocytes % (Manual) Nucleated RBC % Seg Neutrophils # Seg Neutrophils # Man Lymphocytes # (Manual) Monocytes # (Manual) Eosinophils # (Manual) PT INR APTT D-Dimer Heparin Anti-Xa Level ABG pH POC ABG pCO2 POC ABG pO2 ABG pO2 ABG HCO3 ABG Hemoglobin ABG Oxyhemoglobin ABG Sodium ABG Potassium ABG Chloride ABG Glucose Carboxyhemoglobin Sodium Potassium Chloride Carbon Dioxide BUN Creatinine Glucose POC Glucose 118 H Lactic Acid Calcium Phosphorus Magnesium Ferritin Direct Bilirubin AST ALT Alkaline Phosphatase Lactate Dehydrogenase Total Creatine Kinase C-Reactive Protein Total Protein Albumin Triglycerides Arterial Blood Glucose Arterial Blood Ionized Calcium Urine Creatinine Urine Chloride Vancomycin Trough Coronavirus (PCR) Crossmatch See Detail 07/13/20 07/14/20 07/14/20 23:34 04:25 12:21 WBC RBC Hgb Hct MCHC RDW Lymph % (Auto) [place] % (Auto) Lymph # (Auto) [place] # (Auto) Eos # (Auto) Seg Neutrophils % Seg Neuts % (Manual) Lymphocytes % (Manual) Monocytes % (Manual) Nucleated RBC % Seg Neutrophils # Seg Neutrophils # Man Lymphocytes # (Manual) Monocytes # (Manual) Eosinophils # (Manual) PT INR APTT D-Dimer Heparin Anti-Xa Level ABG pH POC ABG pCO2 POC ABG pO2 ABG pO2 ABG HCO3 ABG Hemoglobin 8.9 L ABG Oxyhemoglobin ABG Sodium 133.1 L ABG Potassium 4.7 H ABG Chloride ABG Glucose 113 H Carboxyhemoglobin Sodium Potassium Chloride Carbon Dioxide BUN Creatinine Glucose POC Glucose 109 H 109 H Lactic Acid Calcium Phosphorus Magnesium Ferritin Direct Bilirubin AST ALT Alkaline Phosphatase Lactate Dehydrogenase Total Creatine Kinase C-Reactive Protein Total Protein Albumin Triglycerides Arterial Blood Glucose 113 H Arterial Blood Ionized Calcium 4.4 L Urine Creatinine Urine Chloride Vancomycin Trough Coronavirus (PCR) Crossmatch Chest x-ray: other (none today) Allied health notes reviewed: nursing
--- NOTE | 2020-07-14 16:42 | Event Note ---
Date: 07/14/20 full goi consult dictated - no plans to scope unless necessary - follow labs, transfuse as needed - will follow
--- NOTE | 2020-07-14 16:55 | Progress Note ---
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 Kidney function worsened and patient developed hyperkalemia, refractory acidosis and worsening azotemia, no signs of significant renal recovery, will cont HD on MWF schedule with vasopressor support prn to target increased UF 2-3L as tolerated (2) Severe sepsis with septic shock Current Visit: Yes Status: Acute Plan to address problem: Continue antibiotics per infectious disease service delivery consultant appropriately adjusted to the degree of renal function. Patient is on intermittent vasopressors to maintain MAP > 65mmHg . (3) Hyperkalemia Current Visit: Yes Status: Acute Plan to address problem: to be corrected with dialysis. cont 2g K renal diet (4) Metabolic acidosis Current Visit: Yes Status: Acute Plan to address problem: Acidosis corrected with dialysis. (5) Acute respiratory failure with hypoxia Current Visit: Yes Status: Acute Plan to address problem: Continue respiratory management by pulmonary (6) Pneumonia due to COVID-19 virus Current Visit: Yes Status: Acute Plan to address problem: IV Dexamethasone Supplemental oxygen/Respiratory support as needed Proning as tolerated Remdesevir contra-indicated due to Kidney failure Prophylactic anticoagulation Trend inflammatory markers to assess disease progression and prognosis Subjective Date of service: 07/14/20 Principal diagnosis: ARF; Septic Shock; COVID-19 PNA; Atrial fibrillation; Obesity Interval history: Patient was not examined today due to the COVID-19 status to limit exposure of the consulting case manager and also for PPE preservation. I reviewed multidisciplinary notes and discussed with staff and physicians as needed. Patient is sedated on intermittent vasopressor support Objective - Exam Narrative Exam: exam deferred d/t PPE preservation - Vital Signs Vital signs: Vital Signs - 12hr 07/14/20 07/14/20 07/14/20 05:00 05:15 05:30 Temperature Pulse Rate 102 H 94 H 101 H Pulse Rate [ From Monitor] Respiratory 25 H 25 H 25 H Rate Blood Pressure 131/82 121/58 114/58 O2 Sat by Pulse 99 100 100 Oximetry 07/14/20 07/14/20 07/14/20 05:45 06:00 06:15 Temperature Pulse Rate 91 H 103 H 109 H Pulse Rate [ From Monitor] Respiratory 25 H 25 H 24 Rate Blood Pressure 116/57 120/59 110/56 O2 Sat by Pulse 99 100 100 Oximetry 07/14/20 07/14/20 07/14/20 06:30 06:45 07:00 Temperature Pulse Rate 85 109 H 103 H Pulse Rate [ From Monitor] Respiratory 25 H 25 H 20 Rate Blood Pressure 111/63 115/62 115/62 O2 Sat by Pulse 100 100 100 Oximetry 07/14/20 07/14/20 07/14/20 07:15 07:30 07:45 Temperature Pulse Rate 96 H 91 H 121 H Pulse Rate [ From Monitor] Respiratory 18 25 H 25 H Rate Blood Pressure 128/64 112/58 117/58 O2 Sat by Pulse 99 100 100 Oximetry 07/14/20 07/14/20 07/14/20 08:00 08:16 08:20 Temperature 97.4 F L Pulse Rate 130 H 125 H 112 H Pulse Rate [ 124 H From Monitor] Respiratory 13 19 Rate Blood Pressure 117/58 141/75 148/78 O2 Sat by Pulse 91 90 92 Oximetry 07/14/20 07/14/20 07/14/20 08:30 08:45 09:00 Temperature Pulse Rate 124 H 121 H 115 H Pulse Rate [ From Monitor] Respiratory 16 15 17 Rate Blood Pressure 148/78 128/60 128/60 O2 Sat by Pulse 91 93 97 Oximetry 07/14/20 07/14/20 07/14/20 09:16 09:30 09:45 Temperature Pulse Rate 101 H 114 H 132 H Pulse Rate [ From Monitor] Respiratory 31 H 25 H 18 Rate Blood Pressure 105/37 103/69 100/64 O2 Sat by Pulse 98 100 100 Oximetry 07/14/20 07/14/20 07/14/20 10:00 10:15 10:30 Temperature Pulse Rate 121 H 109 H 123 H Pulse Rate [ From Monitor] Respiratory 18 30 H 25 H Rate Blood Pressure 100/64 107/59 105/67 O2 Sat by Pulse 97 96 98 Oximetry 07/14/20 07/14/20 07/14/20 10:45 11:00 11:16 Temperature Pulse Rate 130 H 110 H 126 H Pulse Rate [ From Monitor] Respiratory 26 H 30 H 23 Rate Blood Pressure 119/65 123/64 116/68 O2 Sat by Pulse 96 97 96 Oximetry 07/14/20 07/14/20 07/14/20 11:30 11:46 12:00 Temperature Pulse Rate 125 H 133 H 112 H Pulse Rate [ 117 H From Monitor] Respiratory 14 17 26 H Rate Blood Pressure 116/68 102/69 111/78 O2 Sat by Pulse 97 94 94 Oximetry 07/14/20 07/14/20 07/14/20 12:12 12:16 12:30 Temperature Pulse Rate 120 H 128 H 117 H Pulse Rate [ From Monitor] Respiratory 15 22 Rate Blood Pressure 142/76 149/71 142/76 O2 Sat by Pulse 91 91 93 Oximetry 07/14/20 07/14/20 07/14/20 12:45 13:00 13:15 Temperature Pulse Rate 102 H 114 H 102 H Pulse Rate [ From Monitor] Respiratory 29 H 22 24 Rate Blood Pressure 146/65 146/65 117/61 O2 Sat by Pulse 93 94 96 Oximetry 07/14/20 07/14/20 07/14/20 13:30 13:45 14:00 Temperature Pulse Rate 107 H 114 H 105 H Pulse Rate [ From Monitor] Respiratory 29 H 27 H 19 Rate Blood Pressure 128/64 117/70 117/70 O2 Sat by Pulse 97 96 97 Oximetry 07/14/20 07/14/20 07/14/20 14:15 14:30 14:45 Temperature Pulse Rate 100 H 116 H 92 H Pulse Rate [ From Monitor] Respiratory 26 H 25 H 26 H Rate Blood Pressure 126/67 128/72 120/65 O2 Sat by Pulse 98 98 99 Oximetry 07/14/20 07/14/20 07/14/20 15:00 15:15 15:30 Temperature Pulse Rate 113 H 101 H 104 H Pulse Rate [ From Monitor] Respiratory 16 27 H 17 Rate Blood Pressure 120/65 132/74 128/76 O2 Sat by Pulse 99 99 99 Oximetry 07/14/20 07/14/20 07/14/20 15:46 16:00 16:16 Temperature Pulse Rate 111 H 114 H 117 H Pulse Rate [ 120 H From Monitor] Respiratory 17 12 22 Rate Blood Pressure 143/74 143/74 128/78 O2 Sat by Pulse 97 95 100 Oximetry 07/14/20 07/14/20 16:30 16:46 Temperature Pulse Rate 102 H 116 H Pulse Rate [ From Monitor] Respiratory 31 H 18 Rate Blood Pressure 128/78 103/50 O2 Sat by Pulse 95 98 Oximetry - Lab 07/13/20 16:47 07/13/20 15:12 Most recent lab results ABG pH 7.332 (7.320-7.450) 07/14/20 04:25 ABG pCO2 56.4 mm Hg 07/05/20 04:30 ABG pO2 151.9 mm Hg (80.0-90.0) H 07/05/20 04:30 ABG HCO3 26.8 mmol/L (20.0-26.0) H 07/05/20 04:30 ABG O2 Saturation 98.7 % (95.0-99.0) 07/05/20 04:30 Calcium 7.5 mg/dL (8.4-10.2) L 07/13/20 15:12 Phosphorus 9.40 mg/dL (2.5-4.5) H 06/30/20 03:50 Magnesium 2.70 mg/dL (1.7-2.3) H 06/18/20 20:33 Urine Creatinine 192.4 mg/dL (0.1-20.0) H 06/18/20 15:00 Urine Sodium 28 mmol/L 06/18/20 15:00 Medications & Allergies - Medications Allergies/Adverse Reactions: Allergies No Known Allergies Allergy (Unverified 06/17/20 14:24) Home Medications: Home Medications Medication Instructions Recorded Confirmed Last Taken Type Losartan/Hydrochlorothiazide 1 each PO QDAY 06/19/20 06/19/20 Unknown History [Losartan-Hctz 100-25 mg Tab] amLODIPine [Norvasc] 5 mg PO DAILY 06/19/20 06/19/20 Unknown History Active Medications: Generic Name Dose Route Start Last Admin Trade Name Freq PRN Reason Stop Dose Admin Acetaminophen 650 mg 06/17/20 14:17 07/03/20 09:16 Acetaminophen 325 Mg Tab PO 650 mg Q4H PRN Administration Pain MILD(1-3)/Fever >100.5/ROBERTS Lipase/Protease/Amylase 1 each 06/19/20 12:15 Lipase 10,500/Protease 25,000/Amylase 43,750 (Units) Dr Shad PADILLATPOLY PRN PRN For Clogged Feeding Tube Ascorbic Acid 250 mg 06/17/20 22:00 07/14/20 09:30 Ascorbic Acid 250 Mg Tab PO 250 mg BID CONNOR Administration Cholecalciferol 1,000 unit 06/18/20 10:00 07/14/20 09:30 Cholecalciferol (Vit D3) 1000 Unit (25 Mcg) Tab PO 1,000 unit DAILY CONNOR Administration Dexamethasone 2 mg 07/14/20 10:00 07/14/20 09:31 Dexamethasone 4 Mg/Ml Vial IV 07/15/20 10:01 2 mg DAILY CONNOR Administration Docusate Sodium 100 mg 06/23/20 15:00 07/14/20 09:30 Docusate Sodium 100 Mg/10 Ml Oral Liqd FEEDTUBE 100 mg BID CONNOR Administration Famotidine 20 mg 07/13/20 10:00 07/14/20 09:30 Famotidine 20 Mg Tab PO 20 mg DAILY CONNOR Administration Fentanyl 50 mcg 06/18/20 01:02 07/09/20 00:20 Fentanyl 100 Mcg/2 Ml Inj IV 50 mcg Q10MIN PRN Administration ANALGESIA Heparin Sodium (Porcine) 5,000 unit 06/22/20 12:53 06/30/20 13:36 Heparin 10,000 Unit/1 Ml Vial IV 5,000 unit PAM PRN Administration hemodialysis Hydrophilic Ointment 1 applic 06/17/20 22:52 07/12/20 20:22 Lip Therapy Vaseline TP 1 applic Q2HR PRN Administration Dry Lips Propofol 1,000 mg in 100 mls @ 3.402 mls/hr 06/18/20 01:00 07/14/20 09:31 Diprivan 10 Mg/Ml IV 10 mcg/kg/min TITR CONNOR 6.804 mls/hr Administration Protocol 5 MCG/KG/MIN Fentanyl Citrate 2,000 mcg in 100 mls @ 8 mls/hr 06/18/20 02:00 07/14/20 15:37 Fentanyl Drip Premix IV 3 mcg/kg/hr TITR CONNOR 17.01 mls/hr Administration Protocol 1 MCG/KG/HR Sodium Chloride 500 mls @ 1 mls/hr 06/18/20 09:38 06/19/20 21:37 Nacl 0.9% 500 Ml IV 0 mls/hr DIRECT PRN Infusion ARTERIAL LINE FLUSH Norepinephrine 4 mg in 250 mls @ 7.5 mls/hr 07/08/20 02:06 07/13/20 18:03 Levophed Drip 4 Mg/Ns 250 Ml IV 0 mcg/min TITR CONNOR 0 mls/hr Titration Protocol 2 MCG/MIN Vasopressin 20 unit/ Sodium 101 mls @ 9.09 mls/hr 07/11/20 11:00 07/14/20 08:35 Chloride IV 0.03 units/min TITR CONNOR 9.09 mls/hr Administration Protocol 0.03 UNITS/MIN Sodium Chloride 100 mls @ 999 mls/hr 07/12/20 10:00 Nacl 0.9% IV PAM PRN Hypotension Amiodarone HCl 900 mg/ 500 mls @ 33.333 mls/hr 07/14/20 12:30 07/14/20 13:05 Dextrose IV 1 mg/min DIRECT CONNOR 33.333 mls/hr Administration Protocol 1 MG/MIN Insulin Human Regular 0 units 06/18/20 12:00 07/14/20 13:05 Insulin Regular, Human 100 Units/1 Ml SUB-Q Not Given Q6HR CONNOR Protocol Multi-Ingred Cream/Lotion/Oil/Oint 1 applic 06/17/20 22:52 07/12/20 20:22 Mineral Oil/Petrolatum, White Ophth Oint 3.5 Gm OU 1 applic Q4HR PRN Administration Dry Eye(s) Ondansetron HCl 4 mg 06/17/20 14:17 Ondansetron 4 Mg/2 Ml Inj IV Q8H PRN Nausea And Vomiting Polyethylene Glycol 17 gm 06/23/20 15:00 07/14/20 09:30 Polyethylene Glycol 3350 17 Gm Powder PO 17 gm QDAY CONNOR Administration Quetiapine Fumarate 200 mg 06/28/20 13:00 07/14/20 09:30 Quetiapine 200 Mg Tab PO 200 mg BID CONNOR Administration Simple Syrup 15 ml 06/19/20 12:15 Simple Syrup 15 Ml FEEDTUBE PRN PRN Hypoglycemia Simple Syrup 30 ml 06/19/20 12:15 Simple Syrup 15 Ml FEEDTUBE PRN PRN Hypoglycemia Sodium Bicarbonate 325 mg 06/19/20 12:15 07/11/20 20:00 Sodium Bicarbonate 325 Mg Tab FEEDTUBE 325 mg PRN PRN Administration For Clogged Feeding Tube Sodium Bicarbonate 650 mg 07/04/20 10:00 07/14/20 15:37 Sodium Bicarbonate 650 Mg Tab PO 650 mg TID CONNOR Administration Sodium Chloride 10 ml 06/17/20 22:00 07/14/20 09:32 Sodium Chloride 0.9% 10 Ml Flush Syringe IV 10 ml BID CONNOR Administration Sodium Chloride 10 ml 06/17/20 14:17 Sodium Chloride 0.9% 10 Ml Flush Syringe IV PRN PRN LINE FLUSH Sodium Polystyrene Sulfonate 15 gm 07/03/20 11:19 07/05/20 10:36 Sodium Polystyrene 15 Gm/60 Ml Oral Liqd PO 15 gm Q6HR PRN Administration Hyperkalemia Zinc Sulfate 220 mg 06/17/20 22:00 07/14/20 09:30 Zinc Sulfate 220 Mg Cap PO 220 mg BID OCNNOR Administration
[2020-07-14 16:58] LABS: Hemoglobin 7.4 gm/dl (11.8-15.2); Mean Corpuscular HGB Conc 32 % (32-34); Mean Corpuscular Volume 89 fl (84-94); Platelet Count 356 K/mm3 (140-440)
[2020-07-14 17:09] LABS: INR 1.26 (0.87-1.13)
[2020-07-14] MEDS: NORepinephrine/NS 4 MG-250 ML 4 MG/250 ML BAG IV SCH (20:00)
[2020-07-14 21:03] LABS: Hematocrit 18.1 % (35.5-45.6); Hemoglobin 5.6 gm/dl (11.8-15.2)
[2020-07-14] MEDS ORDERED: SODIUM CHLORIDE 0.9% 500 ML 500 ML IV ONE ×2 (21:17→21:22)
--- NOTE | 2020-07-14 21:41 | Event Note ---
Date: 07/14/20 Contacted by patient's nurse re: worsening rectal bleeding tonight (seen earlier today by Dr Wolf). The patient is still on tube feeds, hypotensive on two pressors, and hgb has fallen from baseline of last few days by about 3 units. Suspect a stress ulcer from intubation and covid, complicated by current comorbids. Plan: 1. Stop pepcid, and begin protonix 2. Stop tube feeds, in preparation for a possible endoscopy 3. Transfuse to improve patient's perfusion status 4. Transfuse FFP as well in attempt to correct some of coagulopathy 5. Too unstable to transport at present, but will order a CTA to assess for GI bleeding after infusions complete; will consult IR versus perform EGD based on the results (or colonoscopy, but upper more likely bleed) 6. Will stop dexamethasone, as this may worsen an ulcer if present; heparin during HD acceptable 7. Patient's anticoagulation has been stopped (DDimer elevated already)
[2020-07-14] MEDS ORDERED: PANTOPRAZOLE 40 MG INJ IV SCH (22:00)
[2020-07-14 22:36] LABS: Band Neutrophils # (Manual) 2.1 K/mm3; Ovalocytes Rare; Tear Drop Cells Rare; Total Cells Counted 100
[2020-07-14 22:40] LABS: Large Platelets Rare; Platelet Estimate Consistent w Auto
[2020-07-15] MEDS: NORepinephrine/NS 4 MG-250 ML 4 MG/250 ML BAG IV SCH ×4 (01:09→19:50)
[2020-07-15] MEDS: VASOPRESSIN 20 UNIT in SODIUM CHLORIDE 0.9% 100 ML IV SCH ×2 (04:40→15:45)
[2020-07-15] MEDS: INSULIN REGULAR, HUMAN 100 UNITS/1 ML SUB-Q SCH ×4 (05:34→23:28)
--- NOTE | 2020-07-15 05:52 | Consultation ---
REFERRING PHYSICIAN: Alden Ferreira MD INDICATION: Rectal bleeding. HISTORY OF PRESENT ILLNESS: The patient is a 60-year-old male with history of obesity hypoventilation syndrome, been seen by GI for rectal bleeding. The patient presented and was admitted on 06/17/2020. The patient at that time presented with shortness of breath and signs of sepsis. The patient subsequently was diagnosed with COVID pneumonia. Since that time, the patient has been intubated and has had to be intubated to be stabilized. Staff reports rectal bleeding for the last 24 hours with bright red blood per rectum with some occasional clots. The patient has a rectal tube in place. The patient with no hematemesis. No recent melena. GI is consulted to aid in management. PAST MEDICAL HISTORY: 1. Hypoventilation syndrome. 2. COVID positive. MEDICATIONS: Reviewed and updated in chart. ALLERGIES: No known drug allergies. SOCIAL HISTORY: Reported no alcohol or tobacco. FAMILY HISTORY: Negative for colon cancer. REVIEW OF SYSTEMS: The patient unable to give full review of systems reportedly. GENERAL: Some weakness. HEENT: No visual complaints. PULMONARY: Rhonchi. CARDIOVASCULAR: No chest pain. GASTROINTESTINAL: Rectal bleeding. All points of 13-point review of systems reportedly negative. PHYSICAL EXAMINATION: VITAL SIGNS: Temperature of 98.7, pulse 104, respirations 20, blood pressure 128/76. GENERAL: Obese male in no acute distress. HEENT: Pupils equal, round and reactive. PULMONARY: Rhonchi. CARDIOVASCULAR: Regular rhythm. Normal S1 and S2. ABDOMEN: Palpable soft, obese. SKIN: No obvious rashes. LABORATORY DATA: Pertinent for H and H 7.4 and 22.1. Chem-7; sodium of 137, potassium 5.5, chloride 100, CO2 of 23, BUN and creatinine of 38 and 3.8. ASSESSMENT: A 60-year-old male with COVID pneumonia, status post intubation also other medical problems including now on hemodialysis, on amiodarone drip for atrial fibrillation and atrial flutter, now with rectal bleeding. Noted blood in the rectal tube. The patient is now hemodynamically stable for any endoscopic procedure at this time, and we would want to take a more conservative approach. PLAN: 1. Follow serial H and H and transfuse as needed. 2. PPI IV b.i.d. 3. Avoid anticoagulation as possible. 4. All other medical issues per primary team and consultants. 5. No plans to scope at this time unless absolutely necessary. 6. We will follow. JOB# [id number] CAB/NTS ZOYAD
--- NOTE | 2020-07-15 07:36 | Progress Note ---
Assessment and Plan Acute hypoxemic respiratory failure due to COVID-19 Severe COVID infection Severe Sepsis with shock Bilateral pneumonia Acute kidney injury (GIRISH) with acute tubular necrosis (ATN) Elevated liver enzymes Obesity (Discussed care with his family extensively over the phone and asked that they come in and see him in case of impending demise) - transfuse 1 more unit PRBC's re: active bleeding / BRBPR) - get stat PT/INR & Fibrinogen levels and address - called [facility] re: ? emergent colonoscopy - start Protonix drip - NPO status - continue to wean vasopressors for target MAP > 65 mmHg - kimble culture and begin empiric Vanc and Cefepime - called and asked to come in (in case of impending demise) - hopefully can tolerate HD/UF today - continue care as below otherwise; - therapeutic anticoagulation remains on hold - continue HD/UF per nephrology prescription for toxin and volume clearance - keep peep at 14 - continue daily SAT's & SBT's as tolerated - continue tube feeds and advance to goal rate as tolerated - continue HD/UF per nephrology team for toxin and volume clearance - continue bowel regimen - rate control per cardiology team for afib RVR - Continue to wean supplemental oxygen for O2 sats >92% - Monitor blood pressure closely while optimizing sedation,wean vasopressor support for MAP > 65 mmHg - Critical care prone positioning - VAP bundle addressed, aspiration precautions HOB >40 - continue lung protective strategies, permissive hypercapnic acceptable. - continue bronchodilators with pulmonary hygiene per RT - wean per pulmonary driven protocols otherwise - accuchecks with glycemic control per SSI (While critically ill target blood glucose of 140-180 mg/dL; avoid hypoglycemia) - sedation prn for target RASS -1 to -2 - continue enteral nutritional support at goal rate as tolerated - s/p antibiotics per ID recommendations - Monitor liver function test ,avoid hepatotoxic agents - azotemia per nephrology rec's - Avoid nephrotoxins, renally dose all medications, conservative fluid management - continue to avoid benzodiazepines, reduce the possibility of delirium, - prn analgesia per CPOT score - Maintenance of sleep-wake cycle, avoid delirium - Stress ulcer prophylaxis, Famotidine - PT/OT/ROM exercises - Mobility protocols for pressure ulcer prevention - CXR, ABG in am - CBC, CMP in am - Supportive transfusions to keep HgB >7g/dL - Monitor hemodynamics closely - continue other care per attending / other consultants COVID SPECIFIC INTERVENTIONS - s/p steroids: Dexamethasone - completed Remdesivir - monitor inflammatory markers prn - ferritin, D-dimer, CRP, LDH per facility protocol - continue anticoagulation per System Protocol based on d-dimer (on hold due to bleeding) - continue contact and airborne isolation CONDITION: CRITICAL PROGNOSIS: GUARDED CODE STATUS: FULL CODE The high probability of a clinically significant, sudden or life-threatening deterioration of the [respiratory, cardiovascular, hematologic & neurologic] system(s) required my full and direct attention, intervention and personal management. The aggregate critical care time was [40] minutes without overlap. Time includes spent on; [x] Data Review and interpretation [x] Patient assessment and monitoring of vital signs [x] Documentation [x] Medication orders and management He was evaluated in the context of the global COVID-19 pandemic, which necessitated consideration that the patient might be at risk for infection with the virus that causes COVID-19. Institutional protocols and algorithms that pertain to the evaluation of patients at risk for COVID-19 are in a state of rapid change based on information released by regulatory bodies including the [place] [employer] and federal and state organizations. These policies and algorithms were followed during the patient's care in the ICU Please note that these policies, procedures and recommendations changed on a rapid basis. Subjective Date of service: 07/15/20 Principal diagnosis: ARF; Septic Shock; COVID-19 PNA; Atrial fibrillation; Obesity Interval history: Patient is seen today for: Ac hypoxemic respiratory failure; COVID-19; Severe Sepsis with shock; Zackery. pneumonia; GIRISH; Elevated liver enzymes; Obesity Seen and examined at bedside; 24hour events reviewed; nursing and respiratory care staff consulted; no adverse overnight events reported to me; resting in bed; remains on MVS; bright red blood noted per rectum; received 2 units PRBC already this morning; remains on vasopressors; oxygenation is stable though and remains on 60% FiO2 with peep down to 12 (TV also dropped to 450 yesterday due to high PIP's) Objective Vital Signs - 12hr 07/14/20 07/14/20 07/14/20 19:45 20:00 20:16 Temperature 99.7 F H Pulse Rate 100 H 99 H 124 H Pulse Rate [ From Monitor] Respiratory 16 14 22 Rate Blood Pressure 77/42 75/39 84/46 O2 Sat by Pulse 100 99 100 Oximetry 07/14/20 07/14/20 07/14/20 20:30 20:45 20:50 Temperature Pulse Rate 101 H 116 H Pulse Rate [ 110 H From Monitor] Respiratory 23 30 H 22 Rate Blood Pressure 84/46 145/67 O2 Sat by Pulse 100 99 96 Oximetry 07/14/20 07/14/20 07/14/20 20:52 21:00 21:15 Temperature Pulse Rate 109 H 127 H 126 H Pulse Rate [ From Monitor] Respiratory 26 H 21 Rate Blood Pressure 145/67 134/75 140/59 O2 Sat by Pulse 98 97 98 Oximetry 07/14/20 07/14/20 07/14/20 21:30 21:45 22:00 Temperature Pulse Rate 134 H 139 H 125 H Pulse Rate [ From Monitor] Respiratory 26 H 20 20 Rate Blood Pressure 140/59 115/57 106/51 O2 Sat by Pulse 97 96 97 Oximetry 07/14/20 07/14/20 07/14/20 22:15 22:30 22:46 Temperature Pulse Rate 114 H 121 H 126 H Pulse Rate [ From Monitor] Respiratory 21 27 H 22 Rate Blood Pressure 90/51 109/51 118/49 O2 Sat by Pulse 97 97 97 Oximetry 07/14/20 07/14/20 07/14/20 22:50 23:00 23:01 Temperature Pulse Rate 122 H 117 H Pulse Rate [ 110 H From Monitor] Respiratory 22 24 23 Rate Blood Pressure 118/49 114/52 O2 Sat by Pulse 99 97 97 Oximetry 07/14/20 07/14/20 07/14/20 23:15 23:17 23:26 Temperature 99.7 F H Pulse Rate 120 H 126 H 121 H Pulse Rate [ From Monitor] Respiratory 24 21 20 Rate Blood Pressure 119/49 119/49 115/47 O2 Sat by Pulse 97 97 98 Oximetry 07/14/20 07/14/20 07/14/20 23:30 23:34 23:45 Temperature Pulse Rate 127 H 125 H 124 H Pulse Rate [ 121 H From Monitor] Respiratory 20 22 22 Rate Blood Pressure 119/49 119/49 124/48 O2 Sat by Pulse 97 97 98 Oximetry 07/14/20 07/15/20 07/15/20 23:56 00:00 00:15 Temperature 99.9 F H 99.9 F H Pulse Rate 128 H 115 H 120 H Pulse Rate [ From Monitor] Respiratory 22 21 21 Rate Blood Pressure 111/53 124/48 107/51 O2 Sat by Pulse 98 97 98 Oximetry 07/15/20 07/15/20 07/15/20 00:16 00:26 00:30 Temperature 99.9 F H 99.9 F H Pulse Rate 128 H 128 H 127 H Pulse Rate [ From Monitor] Respiratory 22 22 22 Rate Blood Pressure 111/53 111/53 141/59 O2 Sat by Pulse 98 98 100 Oximetry 07/15/20 07/15/20 07/15/20 00:45 00:56 01:00 Temperature 99.9 F H Pulse Rate 123 H 123 H 119 H Pulse Rate [ From Monitor] Respiratory 20 20 21 Rate Blood Pressure 103/48 103/48 112/49 O2 Sat by Pulse 98 98 98 Oximetry 07/15/20 07/15/20 07/15/20 01:16 01:30 01:31 Temperature 100.0 F H 100.0 F H Pulse Rate 115 H 113 H 115 H Pulse Rate [ 113 H From Monitor] Respiratory 25 H 22 25 H Rate Blood Pressure 129/64 109/55 129/64 O2 Sat by Pulse 98 99 98 Oximetry 07/15/20 07/15/20 07/15/20 01:45 01:46 02:00 Temperature 99.7 F H Pulse Rate 129 H 129 H 115 H Pulse Rate [ From Monitor] Respiratory 19 21 21 Rate Blood Pressure 120/48 124/59 120/48 O2 Sat by Pulse 99 99 98 Oximetry 07/15/20 07/15/20 07/15/20 02:01 02:15 02:30 Temperature 100.0 F H Pulse Rate 115 H 121 H 114 H Pulse Rate [ From Monitor] Respiratory 25 H 19 20 Rate Blood Pressure 129/64 118/51 115/51 O2 Sat by Pulse 98 98 98 Oximetry 07/15/20 07/15/20 07/15/20 02:31 02:45 03:00 Temperature 100.0 F H Pulse Rate 115 H 116 H 110 H Pulse Rate [ From Monitor] Respiratory 25 H 19 20 Rate Blood Pressure 129/64 108/50 114/58 O2 Sat by Pulse 98 98 98 Oximetry 07/15/20 07/15/20 07/15/20 03:01 03:15 03:30 Temperature 100.0 F H Pulse Rate 115 H 117 H 111 H Pulse Rate [ From Monitor] Respiratory 25 H 21 23 Rate Blood Pressure 129/64 112/57 126/63 O2 Sat by Pulse 98 99 100 Oximetry 07/15/20 07/15/20 07/15/20 03:31 03:40 03:45 Temperature 100.0 F H 100.0 F H Pulse Rate 115 H 114 H Pulse Rate [ From Monitor] Respiratory 25 H 23 Rate Blood Pressure 129/64 134/67 O2 Sat by Pulse 98 100 Oximetry 07/15/20 07/15/20 07/15/20 04:01 04:03 04:15 Temperature 100.0 F H Pulse Rate 115 H 112 H 121 H Pulse Rate [ From Monitor] Respiratory 25 H 28 H Rate Blood Pressure 129/64 141/59 O2 Sat by Pulse 98 100 100 Oximetry 07/15/20 07/15/20 07/15/20 04:30 04:31 04:45 Temperature 100.0 F H Pulse Rate 121 H 115 H 118 H Pulse Rate [ 113 H From Monitor] Respiratory 25 H 25 H 28 H Rate Blood Pressure 145/73 129/64 129/62 O2 Sat by Pulse 100 98 99 Oximetry 07/15/20 07/15/20 07/15/20 05:00 05:01 05:07 Temperature 100.0 F H 100.0 F H Pulse Rate 115 H 115 H 115 H Pulse Rate [ From Monitor] Respiratory 25 H 25 H 25 H Rate Blood Pressure 129/64 129/64 129/64 O2 Sat by Pulse 98 98 98 Oximetry 07/15/20 07/15/20 07/15/20 05:15 05:30 05:35 Temperature 100.0 F H Pulse Rate 109 H 114 H 109 H Pulse Rate [ From Monitor] Respiratory 22 23 22 Rate Blood Pressure 138/61 134/61 138/61 O2 Sat by Pulse 98 98 98 Oximetry 07/15/20 07/15/20 07/15/20 05:45 06:00 06:05 Temperature 100.0 F H Pulse Rate 114 H 128 H 128 H Pulse Rate [ From Monitor] Respiratory 22 23 23 Rate Blood Pressure 126/62 130/63 130/63 O2 Sat by Pulse 98 98 98 Oximetry 07/15/20 07/15/20 06:15 06:30 Temperature Pulse Rate 116 H 109 H Pulse Rate [ From Monitor] Respiratory 22 24 Rate Blood Pressure 129/62 137/64 O2 Sat by Pulse 98 97 Oximetry Constitutional: appears uncomfortable, other (morbidly obese, atraumatic, n ormocephalic, mild resp distress, orally intubated) Eyes: non-icteric ENT: oropharynx dry, other (ETT 24 cm TROY + blood crusted lips) Neck: supple, no lymphadenopathy, other (Large , short neck) Effort: mildly labored Ascultation: Bilateral: diminished breath sounds, rhonchi (scant) Percussion: Bilateral: not dull Cardiovascular: irregular rhythm, other (S1,S2) Gastrointestinal: normoactive bowel sounds, soft, non-tender, non-distended (protuberant), other (lizeth-rectal tube slow oozing) Integumentary: rash, other (Femoral CVC, Newell catheter) Extremities: pink and warm, pulses normal, no ischemia or petechiae, edema (trace to 1+) Neurologic: non-focal exam (grossly), pupils equal and round, other (unable to assess, sedated) Psychiatric: other (unable to assess, sedated) CBC and BMP: 07/16/20 07:29 07/16/20 04:28 ABG, PT/INR, D-dimer: ABG ABG pH 7.409 (7.320-7.450) 07/15/20 04:13 POC ABG pCO2 38.5 mmHg (32.0-48.0) 07/15/20 04:13 ABG pCO2 56.4 mm Hg 07/05/20 04:30 POC ABG pO2 86.7 mmHg (83-108) 07/15/20 04:13 ABG pO2 151.9 mm Hg (80.0-90.0) H 07/05/20 04:30 POC ABG HCO3 23.8 07/15/20 04:13 ABG O2 Saturation 98.7 % (95.0-99.0) 07/05/20 04:30 PT/INR, D-dimer PT 15.6 Sec. (12.2-14.9) H 07/14/20 16:44 INR 1.26 (0.87-1.13) H 07/14/20 16:44 D-Dimer 6608.00 ng/mlDDU (0-234) H 07/03/20 14:50 Abnormal lab findings: Abnormal Labs 06/17/20 06/17/20 06/17/20 12:33 12:33 12:33 WBC 19.5 H RBC 5.18 H Hgb 15.5 H Hct MCHC RDW Lymph % (Auto) 3.8 L [place] % (Auto) Lymph # (Auto) 0.7 L [place] # (Auto) Eos # (Auto) Seg Neutrophils % Seg Neuts % (Manual) 99.0 H Lymphocytes % (Manual) 1.0 L Monocytes % (Manual) Nucleated RBC % Seg Neutrophils # 18.2 H Seg Neutrophils # Man 19.3 H Lymphocytes # (Manual) 0.2 L Monocytes # (Manual) Eosinophils # (Manual) PT 16.5 H INR 1.33 H APTT D-Dimer 1025.04 H Heparin Anti-Xa Level ABG pH POC ABG pCO2 POC ABG pO2 ABG pO2 ABG HCO3 ABG Hemoglobin ABG Oxyhemoglobin ABG Sodium ABG Potassium ABG Chloride ABG Glucose Carboxyhemoglobin Sodium 130 L Potassium 3.4 L Chloride 95.0 L Carbon Dioxide BUN 21 H Creatinine Glucose 137 H POC Glucose Lactic Acid Calcium 7.9 L Phosphorus Magnesium Ferritin Direct Bilirubin AST 84 H ALT 67 H Alkaline Phosphatase Lactate Dehydrogenase 437 H Total Creatine Kinase 310 H C-Reactive Protein 27.90 H Total Protein Albumin 2.9 L Triglycerides Arterial Blood Glucose Arterial Blood Ionized Calcium Urine Creatinine Urine Chloride Vancomycin Trough Coronavirus (PCR) Crossmatch 06/17/20 06/17/20 06/17/20 12:33 12:33 14:48 WBC RBC Hgb Hct MCHC RDW Lymph % (Auto) [place] % (Auto) Lymph # (Auto) [place] # (Auto) Eos # (Auto) Seg Neutrophils % Seg Neuts % (Manual) Lymphocytes % (Manual) Monocytes % (Manual) Nucleated RBC % Seg Neutrophils # Seg Neutrophils # Man Lymphocytes # (Manual) Monocytes # (Manual) Eosinophils # (Manual) PT INR APTT D-Dimer Heparin Anti-Xa Level ABG pH POC ABG pCO2 POC ABG pO2 ABG pO2 ABG HCO3 ABG Hemoglobin ABG Oxyhemoglobin ABG Sodium ABG Potassium ABG Chloride ABG Glucose Carboxyhemoglobin Sodium Potassium Chloride Carbon Dioxide BUN Creatinine Glucose POC Glucose Lactic Acid 2.50 H* 2.20 H* Calcium Phosphorus Magnesium Ferritin 2297.0 H Direct Bilirubin AST ALT Alkaline Phosphatase Lactate Dehydrogenase Total Creatine Kinase C-Reactive Protein Total Protein Albumin Triglycerides Arterial Blood Glucose Arterial Blood Ionized Calcium Urine Creatinine Urine Chloride Vancomycin Trough Coronavirus (PCR) Crossmatch 06/17/20 06/17/20 06/17/20 14:48 14:48 14:48 WBC RBC Hgb Hct MCHC RDW Lymph % (Auto) [place] % (Auto) Lymph # (Auto) [place] # (Auto) Eos # (Auto) Seg Neutrophils % Seg Neuts % (Manual) Lymphocytes % (Manual) Monocytes % (Manual) Nucleated RBC % Seg Neutrophils # Seg Neutrophils # Man Lymphocytes # (Manual) Monocytes # (Manual) Eosinophils # (Manual) PT INR APTT D-Dimer 939.89 H Heparin Anti-Xa Level ABG pH POC ABG pCO2 POC ABG pO2 ABG pO2 ABG HCO3 ABG Hemoglobin ABG Oxyhemoglobin ABG Sodium ABG Potassium ABG Chloride ABG Glucose Carboxyhemoglobin Sodium Potassium Chloride Carbon Dioxide BUN Creatinine Glucose 141 H POC Glucose Lactic Acid Calcium Phosphorus Magnesium Ferritin > 2000.0 H Direct Bilirubin AST ALT Alkaline Phosphatase Lactate Dehydrogenase 503 H Total Creatine Kinase C-Reactive Protein 24.70 H Total Protein Albumin Triglycerides Arterial Blood Glucose Arterial Blood Ionized Calcium Urine Creatinine Urine Chloride Vancomycin Trough Coronavirus (PCR) Crossmatch 06/17/20 06/17/20 06/17/20 16:54 19:39 23:43 WBC RBC Hgb Hct MCHC RDW Lymph % (Auto) [place] % (Auto) Lymph # (Auto) [place] # (Auto) Eos # (Auto) Seg Neutrophils % Seg Neuts % (Manual) Lymphocytes % (Manual) Monocytes % (Manual) Nucleated RBC % Seg Neutrophils # Seg Neutrophils # Man Lymphocytes # (Manual) Monocytes # (Manual) Eosinophils # (Manual) PT INR APTT D-Dimer Heparin Anti-Xa Level ABG pH 7.571 H POC ABG pCO2 24.3 L POC ABG pO2 41.6 L ABG pO2 ABG HCO3 ABG Hemoglobin ABG Oxyhemoglobin 84.0 L ABG Sodium 131.0 L ABG Potassium ABG Chloride ABG Glucose 163 H Carboxyhemoglobin Sodium Potassium Chloride Carbon Dioxide BUN Creatinine Glucose POC Glucose 185 H Lactic Acid 2.10 H* Calcium Phosphorus Magnesium Ferritin Direct Bilirubin AST ALT Alkaline Phosphatase Lactate Dehydrogenase Total Creatine Kinase C-Reactive Protein Total Protein Albumin Triglycerides Arterial Blood Glucose 163 H Arterial Blood Ionized Calcium 4.4 L Urine Creatinine Urine Chloride Vancomycin Trough Coronavirus (PCR) Crossmatch 06/18/20 06/18/20 06/18/20 00:17 00:23 03:55 WBC RBC Hgb Hct MCHC RDW Lymph % (Auto) [place] % (Auto) Lymph # (Auto) [place] # (Auto) Eos # (Auto) Seg Neutrophils % Seg Neuts % (Manual) Lymphocytes % (Manual) Monocytes % (Manual) Nucleated RBC % Seg Neutrophils # Seg Neutrophils # Man Lymphocytes # (Manual) Monocytes # (Manual) Eosinophils # (Manual) PT INR APTT D-Dimer Heparin Anti-Xa Level ABG pH POC ABG pCO2 POC ABG pO2 56.5 L 48.3 L ABG pO2 ABG HCO3 ABG Hemoglobin ABG Oxyhemoglobin 86.3 L 81.7 L ABG Sodium 132.9 L 131.0 L ABG Potassium ABG Chloride ABG Glucose 189 H 161 H Carboxyhemoglobin 0.4 L Sodium Potassium Chloride Carbon Dioxide BUN Creatinine Glucose POC Glucose Lactic Acid 3.80 H* Calcium Phosphorus Magnesium Ferritin Direct Bilirubin AST ALT Alkaline Phosphatase Lactate Dehydrogenase Total Creatine Kinase C-Reactive Protein Total Protein Albumin Triglycerides Arterial Blood Glucose 189 H 161 H Arterial Blood Ionized Calcium 4.3 L 4.2 L Urine Creatinine Urine Chloride Vancomycin Trough Coronavirus (PCR) Crossmatch 06/18/20 06/18/20 06/18/20 05:39 05:39 05:39 WBC 26.2 H RBC Hgb Hct MCHC RDW Lymph % (Auto) [place] % (Auto) Lymph # (Auto) [place] # (Auto) Eos # (Auto) Seg Neutrophils % Seg Neuts % (Manual) 90.0 H Lymphocytes % (Manual) 5.0 L Monocytes % (Manual) Nucleated RBC % Seg Neutrophils # Seg Neutrophils # Man 23.6 H Lymphocytes # (Manual) Monocytes # (Manual) 1.3 H Eosinophils # (Manual) PT INR APTT D-Dimer Heparin Anti-Xa Level ABG pH POC ABG pCO2 POC ABG pO2 ABG pO2 ABG HCO3 ABG Hemoglobin ABG Oxyhemoglobin ABG Sodium ABG Potassium ABG Chloride ABG Glucose Carboxyhemoglobin Sodium 135 L Potassium Chloride 97.5 L Carbon Dioxide 21 L BUN 39 H Creatinine 1.7 H D Glucose 168 H POC Glucose Lactic Acid 3.40 H* Calcium 7.2 L Phosphorus Magnesium Ferritin Direct Bilirubin AST ALT Alkaline Phosphatase Lactate Dehydrogenase Total Creatine Kinase C-Reactive Protein Total Protein Albumin Triglycerides Arterial Blood Glucose Arterial Blood Ionized Calcium Urine Creatinine Urine Chloride Vancomycin Trough Coronavirus (PCR) Crossmatch 06/18/20 06/18/20 06/18/20 07:24 09:00 10:10 WBC RBC Hgb Hct MCHC RDW Lymph % (Auto) [place] % (Auto) Lymph # (Auto) [place] # (Auto) Eos # (Auto) Seg Neutrophils % Seg Neuts % (Manual) Lymphocytes % (Manual) Monocytes % (Manual) Nucleated RBC % Seg Neutrophils # Seg Neutrophils # Man Lymphocytes # (Manual) Monocytes # (Manual) Eosinophils # (Manual) PT INR APTT D-Dimer Heparin Anti-Xa Level ABG pH POC ABG pCO2 POC ABG pO2 ABG pO2 ABG HCO3 ABG Hemoglobin ABG Oxyhemoglobin ABG Sodium ABG Potassium ABG Chloride ABG Glucose Carboxyhemoglobin Sodium Potassium Chloride Carbon Dioxide BUN Creatinine Glucose POC Glucose Lactic Acid 2.90 H* 3.20 H* Calcium Phosphorus Magnesium Ferritin Direct Bilirubin AST ALT Alkaline Phosphatase Lactate Dehydrogenase Total Creatine Kinase C-Reactive Protein Total Protein Albumin Triglycerides Arterial Blood Glucose Arterial Blood Ionized Calcium Urine Creatinine Urine Chloride Vancomycin Trough Coronavirus (PCR) Positive A Crossmatch 06/18/20 06/18/20 06/18/20 11:58 14:43 15:00 WBC RBC Hgb Hct MCHC RDW Lymph % (Auto) [place] % (Auto) Lymph # (Auto) [place] # (Auto) Eos # (Auto) Seg Neutrophils % Seg Neuts % (Manual) Lymphocytes % (Manual) Monocytes % (Manual) Nucleated RBC % Seg Neutrophils # Seg Neutrophils # Man Lymphocytes # (Manual) Monocytes # (Manual) Eosinophils # (Manual) PT INR APTT D-Dimer Heparin Anti-Xa Level ABG pH 7.303 L POC ABG pCO2 POC ABG pO2 82.3 L ABG pO2 ABG HCO3 ABG Hemoglobin ABG Oxyhemoglobin ABG Sodium 135.3 L ABG Potassium ABG Chloride ABG Glucose 215 H Carboxyhemoglobin 0.3 L Sodium Potassium Chloride Carbon Dioxide BUN Creatinine Glucose POC Glucose 209 H Lactic Acid Calcium Phosphorus Magnesium Ferritin Direct Bilirubin AST ALT Alkaline Phosphatase Lactate Dehydrogenase Total Creatine Kinase C-Reactive Protein Total Protein Albumin Triglycerides Arterial Blood Glucose 215 H Arterial Blood Ionized Calcium 4.2 L Urine Creatinine 192.4 H Urine Chloride 31.1 L Vancomycin Trough Coronavirus (PCR) Crossmatch 06/18/20 06/18/20 06/18/20 17:16 19:44 20:33 WBC RBC Hgb Hct MCHC RDW Lymph % (Auto) [place] % (Auto) Lymph # (Auto) [place] # (Auto) Eos # (Auto) Seg Neutrophils % Seg Neuts % (Manual) Lymphocytes % (Manual) Monocytes % (Manual) Nucleated RBC % Seg Neutrophils # Seg Neutrophils # Man Lymphocytes # (Manual) Monocytes # (Manual) Eosinophils # (Manual) PT INR APTT D-Dimer Heparin Anti-Xa Level ABG pH POC ABG pCO2 POC ABG pO2 ABG pO2 ABG HCO3 ABG Hemoglobin ABG Oxyhemoglobin ABG Sodium ABG Potassium ABG Chloride ABG Glucose Carboxyhemoglobin Sodium Potassium Chloride Carbon Dioxide BUN Creatinine Glucose POC Glucose 182 H Lactic Acid 3.00 H* Calcium Phosphorus Magnesium 2.70 H Ferritin Direct Bilirubin AST ALT Alkaline Phosphatase Lactate Dehydrogenase Total Creatine Kinase C-Reactive Protein Total Protein Albumin Triglycerides Arterial Blood Glucose Arterial Blood Ionized Calcium Urine Creatinine Urine Chloride Vancomycin Trough Coronavirus (PCR) Crossmatch 06/18/20 06/19/20 06/19/20 23:43 04:00 04:00 WBC 31.6 H RBC Hgb Hct MCHC RDW Lymph % (Auto) [place] % (Auto) Lymph # (Auto) [place] # (Auto) Eos # (Auto) Seg Neutrophils % Seg Neuts % (Manual) 98.0 H Lymphocytes % (Manual) 0.5 L Monocytes % (Manual) Nucleated RBC % Seg Neutrophils # Seg Neutrophils # Man 31.0 H Lymphocytes # (Manual) 0.2 L Monocytes # (Manual) Eosinophils # (Manual) PT INR APTT D-Dimer Heparin Anti-Xa Level ABG pH POC ABG pCO2 POC ABG pO2 ABG pO2 ABG HCO3 ABG Hemoglobin ABG Oxyhemoglobin ABG Sodium ABG Potassium ABG Chloride ABG Glucose Carboxyhemoglobin Sodium Potassium Chloride Carbon Dioxide BUN 56 H Creatinine 1.6 H Glucose 176 H POC Glucose 149 H Lactic Acid Calcium 7.0 L Phosphorus Magnesium Ferritin Direct Bilirubin AST 244 H ALT 159 H Alkaline Phosphatase Lactate Dehydrogenase Total Creatine Kinase C-Reactive Protein Total Protein 4.9 L D Albumin 2.5 L Triglycerides Arterial Blood Glucose Arterial Blood Ionized Calcium Urine Creatinine Urine Chloride Vancomycin Trough Coronavirus (PCR) Crossmatch 06/19/20 06/19/20 06/19/20 04:00 05:44 11:42 WBC RBC Hgb Hct MCHC RDW Lymph % (Auto) [place] % (Auto) Lymph # (Auto) [place] # (Auto) Eos # (Auto) Seg Neutrophils % Seg Neuts % (Manual) Lymphocytes % (Manual) Monocytes % (Manual) Nucleated RBC % Seg Neutrophils # Seg Neutrophils # Man Lymphocytes # (Manual) Monocytes # (Manual) Eosinophils # (Manual) PT INR APTT D-Dimer Heparin Anti-Xa Level ABG pH 7.265 L POC ABG pCO2 51.8 H POC ABG pO2 65.1 L ABG pO2 ABG HCO3 ABG Hemoglobin ABG Oxyhemoglobin ABG Sodium ABG Potassium ABG Chloride ABG Glucose 184 H Carboxyhemoglobin Sodium Potassium Chloride Carbon Dioxide BUN Creatinine Glucose POC Glucose 156 H 191 H Lactic Acid Calcium Phosphorus Magnesium Ferritin Direct Bilirubin AST ALT Alkaline Phosphatase Lactate Dehydrogenase Total Creatine Kinase C-Reactive Protein Total Protein Albumin Triglycerides Arterial Blood Glucose 184 H Arterial Blood Ionized Calcium 4.3 L Urine Creatinine Urine Chloride Vancomycin Trough Coronavirus (PCR) Crossmatch 06/19/20 06/19/20 06/19/20 12:30 17:16 18:36 WBC RBC Hgb Hct MCHC RDW Lymph % (Auto) [place] % (Auto) Lymph # (Auto) [place] # (Auto) Eos # (Auto) Seg Neutrophils % Seg Neuts % (Manual) Lymphocytes % (Manual) Monocytes % (Manual) Nucleated RBC % Seg Neutrophils # Seg Neutrophils # Man Lymphocytes # (Manual) Monocytes # (Manual) Eosinophils # (Manual) PT 16.4 H INR 1.32 H APTT D-Dimer Heparin Anti-Xa Level ABG pH 7.088 L POC ABG pCO2 78.1 H POC ABG pO2 208.3 H ABG pO2 ABG HCO3 ABG Hemoglobin ABG Oxyhemoglobin 98.3 H ABG Sodium ABG Potassium 5.0 H ABG Chloride ABG Glucose 182 H Carboxyhemoglobin 0.4 L Sodium Potassium Chloride Carbon Dioxide BUN Creatinine Glucose POC Glucose 154 H Lactic Acid Calcium Phosphorus Magnesium Ferritin Direct Bilirubin AST ALT Alkaline Phosphatase Lactate Dehydrogenase Total Creatine Kinase C-Reactive Protein Total Protein Albumin Triglycerides Arterial Blood Glucose 182 H Arterial Blood Ionized Calcium 4.3 L Urine Creatinine Urine Chloride Vancomycin Trough Coronavirus (PCR) Crossmatch 06/19/20 06/20/20 06/20/20 23:32 03:00 05:19 WBC RBC Hgb Hct MCHC RDW Lymph % (Auto) [place] % (Auto) Lymph # (Auto) [place] # (Auto) Eos # (Auto) Seg Neutrophils % Seg Neuts % (Manual) Lymphocytes % (Manual) Monocytes % (Manual) Nucleated RBC % Seg Neutrophils # Seg Neutrophils # Man Lymphocytes # (Manual) Monocytes # (Manual) Eosinophils # (Manual) PT INR APTT D-Dimer Heparin Anti-Xa Level 0.77 H ABG pH POC ABG pCO2 POC ABG pO2 ABG pO2 ABG HCO3 ABG Hemoglobin ABG Oxyhemoglobin ABG Sodium ABG Potassium ABG Chloride ABG Glucose Carboxyhemoglobin Sodium Potassium Chloride Carbon Dioxide BUN Creatinine Glucose POC Glucose 201 H 190 H Lactic Acid Calcium Phosphorus Magnesium Ferritin Direct Bilirubin AST ALT Alkaline Phosphatase Lactate Dehydrogenase Total Creatine Kinase C-Reactive Protein Total Protein Albumin Triglycerides Arterial Blood Glucose Arterial Blood Ionized Calcium Urine Creatinine Urine Chloride Vancomycin Trough Coronavirus (PCR) Crossmatch 06/20/20 06/20/20 06/20/20 08:25 08:25 11:36 WBC RBC Hgb Hct MCHC RDW Lymph % (Auto) [place] % (Auto) Lymph # (Auto) [place] # (Auto) Eos # (Auto) Seg Neutrophils % Seg Neuts % (Manual) Lymphocytes % (Manual) Monocytes % (Manual) Nucleated RBC % Seg Neutrophils # Seg Neutrophils # Man Lymphocytes # (Manual) Monocytes # (Manual) Eosinophils # (Manual) PT INR APTT D-Dimer Heparin Anti-Xa Level ABG pH POC ABG pCO2 POC ABG pO2 ABG pO2 ABG HCO3 ABG Hemoglobin ABG Oxyhemoglobin ABG Sodium ABG Potassium ABG Chloride ABG Glucose Carboxyhemoglobin Sodium 135 L Potassium 5.4 H Chloride 109.2 H Carbon Dioxide 19 L BUN 68 H Creatinine 2.5 H D Glucose 201 H POC Glucose 184 H Lactic Acid Calcium 5.5 L* D Phosphorus Magnesium Ferritin Direct Bilirubin AST 123 H ALT 86 H Alkaline Phosphatase Lactate Dehydrogenase Total Creatine Kinase C-Reactive Protein Total Protein 4.6 L Albumin 1.5 L Triglycerides Arterial Blood Glucose Arterial Blood Ionized Calcium Urine Creatinine Urine Chloride Vancomycin Trough 22.7 H Coronavirus (PCR) Crossmatch 06/20/20 06/20/20 06/20/20 11:40 17:28 20:00 WBC RBC Hgb Hct MCHC RDW Lymph % (Auto) [place] % (Auto) Lymph # (Auto) [place] # (Auto) Eos # (Auto) Seg Neutrophils % Seg Neuts % (Manual) Lymphocytes % (Manual) Monocytes % (Manual) Nucleated RBC % Seg Neutrophils # Seg Neutrophils # Man Lymphocytes # (Manual) Monocytes # (Manual) Eosinophils # (Manual) PT INR APTT D-Dimer Heparin Anti-Xa Level 0.89 H ABG pH 7.099 L POC ABG pCO2 61.1 H POC ABG pO2 ABG pO2 ABG HCO3 ABG Hemoglobin ABG Oxyhemoglobin ABG Sodium ABG Potassium 5.0 H ABG Chloride 111.0 H ABG Glucose 200 H Carboxyhemoglobin 0.4 L Sodium Potassium Chloride Carbon Dioxide BUN Creatinine Glucose POC Glucose 165 H Lactic Acid Calcium Phosphorus Magnesium Ferritin Direct Bilirubin AST ALT Alkaline Phosphatase Lactate Dehydrogenase Total Creatine Kinase C-Reactive Protein Total Protein Albumin Triglycerides Arterial Blood Glucose 200 H Arterial Blood Ionized Calcium 4.2 L Urine Creatinine Urine Chloride Vancomycin Trough Coronavirus (PCR) Crossmatch 06/20/20 06/21/20 06/21/20 23:29 05:00 05:20 WBC RBC Hgb Hct MCHC RDW Lymph % (Auto) [place] % (Auto) Lymph # (Auto) [place] # (Auto) Eos # (Auto) Seg Neutrophils % Seg Neuts % (Manual) Lymphocytes % (Manual) Monocytes % (Manual) Nucleated RBC % Seg Neutrophils # Seg Neutrophils # Man Lymphocytes # (Manual) Monocytes # (Manual) Eosinophils # (Manual) PT INR APTT D-Dimer Heparin Anti-Xa Level ABG pH POC ABG pCO2 POC ABG pO2 ABG pO2 ABG HCO3 ABG Hemoglobin ABG Oxyhemoglobin ABG Sodium ABG Potassium ABG Chloride ABG Glucose Carboxyhemoglobin Sodium Potassium Chloride 112.0 H Carbon Dioxide 20 L BUN 92 H Creatinine 3.9 H D Glucose 214 H POC Glucose 145 H 191 H Lactic Acid Calcium 6.5 L D Phosphorus Magnesium Ferritin Direct Bilirubin AST 98 H ALT 84 H Alkaline Phosphatase Lactate Dehydrogenase Total Creatine Kinase C-Reactive Protein Total Protein 4.6 L Albumin 2.1 L Triglycerides 180 H Arterial Blood Glucose Arterial Blood Ionized Calcium Urine Creatinine Urine Chloride Vancomycin Trough Coronavirus (PCR) Crossmatch 06/21/20 06/21/20 06/21/20 08:56 11:12 12:43 WBC RBC Hgb Hct MCHC RDW Lymph % (Auto) [place] % (Auto) Lymph # (Auto) [place] # (Auto) Eos # (Auto) Seg Neutrophils % Seg Neuts % (Manual) Lymphocytes % (Manual) Monocytes % (Manual) Nucleated RBC % Seg Neutrophils # Seg Neutrophils # Man Lymphocytes # (Manual) Monocytes # (Manual) Eosinophils # (Manual) PT INR APTT D-Dimer Heparin Anti-Xa Level 0.28 L ABG pH 7.184 L POC ABG pCO2 48.3 H POC ABG pO2 172.1 H ABG pO2 ABG HCO3 ABG Hemoglobin ABG Oxyhemoglobin 98.7 H ABG Sodium ABG Potassium 4.9 H ABG Chloride 112.0 H ABG Glucose 196 H Carboxyhemoglobin 0.2 L Sodium Potassium Chloride Carbon Dioxide BUN Creatinine Glucose POC Glucose 177 H Lactic Acid Calcium Phosphorus Magnesium Ferritin Direct Bilirubin AST ALT Alkaline Phosphatase Lactate Dehydrogenase Total Creatine Kinase C-Reactive Protein Total Protein Albumin Triglycerides Arterial Blood Glucose 196 H Arterial Blood Ionized Calcium 4.1 L Urine Creatinine Urine Chloride Vancomycin Trough Coronavirus (PCR) Crossmatch 06/21/20 06/21/20 06/22/20 16:31 Unknown 00:12 WBC RBC Hgb Hct MCHC RDW Lymph % (Auto) [place] % (Auto) Lymph # (Auto) [place] # (Auto) Eos # (Auto) Seg Neutrophils % Seg Neuts % (Manual) Lymphocytes % (Manual) Monocytes % (Manual) Nucleated RBC % Seg Neutrophils # Seg Neutrophils # Man Lymphocytes # (Manual) Monocytes # (Manual) Eosinophils # (Manual) PT INR APTT D-Dimer Heparin Anti-Xa Level 0.78 H ABG pH POC ABG pCO2 POC ABG pO2 ABG pO2 ABG HCO3 ABG Hemoglobin ABG Oxyhemoglobin ABG Sodium ABG Potassium ABG Chloride ABG Glucose Carboxyhemoglobin Sodium Potassium Chloride Carbon Dioxide BUN Creatinine Glucose POC Glucose 150 H 173 H Lactic Acid Calcium Phosphorus Magnesium Ferritin Direct Bilirubin AST ALT Alkaline Phosphatase Lactate Dehydrogenase Total Creatine Kinase C-Reactive Protein Total Protein Albumin Triglycerides Arterial Blood Glucose Arterial Blood Ionized Calcium Urine Creatinine Urine Chloride Vancomycin Trough Coronavirus (PCR) Crossmatch 06/22/20 06/22/20 06/22/20 04:00 05:04 05:30 WBC 33.9 H RBC Hgb 11.7 L Hct 35.2 L MCHC RDW 15.8 H Lymph % (Auto) [place] % (Auto) Lymph # (Auto) [place] # (Auto) Eos # (Auto) Seg Neutrophils % Seg Neuts % (Manual) 93.0 H Lymphocytes % (Manual) 5.0 L Monocytes % (Manual) Nucleated RBC % Seg Neutrophils # Seg Neutrophils # Man 31.5 H Lymphocytes # (Manual) Monocytes # (Manual) Eosinophils # (Manual) PT INR APTT D-Dimer Heparin Anti-Xa Level ABG pH 7.169 L POC ABG pCO2 POC ABG pO2 ABG pO2 ABG HCO3 ABG Hemoglobin ABG Oxyhemoglobin ABG Sodium ABG Potassium 5.1 H ABG Chloride 112.0 H ABG Glucose 186 H Carboxyhemoglobin 0.3 L Sodium Potassium Chloride Carbon Dioxide BUN Creatinine Glucose POC Glucose 161 H Lactic Acid Calcium Phosphorus Magnesium Ferritin Direct Bilirubin AST ALT Alkaline Phosphatase Lactate Dehydrogenase Total Creatine Kinase C-Reactive Protein Total Protein Albumin Triglycerides Arterial Blood Glucose 186 H Arterial Blood Ionized Calcium 4.1 L Urine Creatinine Urine Chloride Vancomycin Trough Coronavirus (PCR) Crossmatch 06/22/20 06/22/20 06/22/20 05:30 11:39 13:27 WBC RBC Hgb Hct MCHC RDW Lymph % (Auto) [place] % (Auto) Lymph # (Auto) [place] # (Auto) Eos # (Auto) Seg Neutrophils % Seg Neuts % (Manual) Lymphocytes % (Manual) Monocytes % (Manual) Nucleated RBC % Seg Neutrophils # Seg Neutrophils # Man Lymphocytes # (Manual) Monocytes # (Manual) Eosinophils # (Manual) PT INR APTT D-Dimer Heparin Anti-Xa Level ABG pH POC ABG pCO2 POC ABG pO2 ABG pO2 ABG HCO3 ABG Hemoglobin ABG Oxyhemoglobin ABG Sodium ABG Potassium ABG Chloride ABG Glucose Carboxyhemoglobin Sodium Potassium 5.7 H Chloride 111.3 H Carbon Dioxide 18 L BUN 112 H Creatinine 5.0 H Glucose 173 H POC Glucose 172 H 176 H Lactic Acid Calcium 6.7 L Phosphorus Magnesium Ferritin Direct Bilirubin AST ALT Alkaline Phosphatase Lactate Dehydrogenase Total Creatine Kinase C-Reactive Protein Total Protein Albumin Triglycerides Arterial Blood Glucose Arterial Blood Ionized Calcium Urine Creatinine Urine Chloride Vancomycin Trough Coronavirus (PCR) Crossmatch 06/22/20 06/22/20 06/22/20 14:37 17:00 17:40 WBC RBC Hgb Hct MCHC RDW Lymph % (Auto) [place] % (Auto) Lymph # (Auto) [place] # (Auto) Eos # (Auto) Seg Neutrophils % Seg Neuts % (Manual) Lymphocytes % (Manual) Monocytes % (Manual) Nucleated RBC % Seg Neutrophils # Seg Neutrophils # Man Lymphocytes # (Manual) Monocytes # (Manual) Eosinophils # (Manual) PT INR APTT D-Dimer Heparin Anti-Xa Level 1.32 H ABG pH POC ABG pCO2 POC ABG pO2 ABG pO2 ABG HCO3 ABG Hemoglobin ABG Oxyhemoglobin ABG Sodium ABG Potassium ABG Chloride ABG Glucose Carboxyhemoglobin Sodium Potassium Chloride Carbon Dioxide BUN Creatinine Glucose POC Glucose 171 H Lactic Acid Calcium Phosphorus Magnesium Ferritin Direct Bilirubin AST ALT Alkaline Phosphatase Lactate Dehydrogenase Total Creatine Kinase C-Reactive Protein 5.30 H Total Protein Albumin Triglycerides Arterial Blood Glucose Arterial Blood Ionized Calcium Urine Creatinine Urine Chloride Vancomycin Trough Coronavirus (PCR) Crossmatch 06/22/20 06/23/20 06/23/20 23:36 02:13 02:41 WBC RBC Hgb Hct MCHC RDW Lymph % (Auto) [place] % (Auto) Lymph # (Auto) [place] # (Auto) Eos # (Auto) Seg Neutrophils % Seg Neuts % (Manual) Lymphocytes % (Manual) Monocytes % (Manual) Nucleated RBC % Seg Neutrophils # Seg Neutrophils # Man Lymphocytes # (Manual) Monocytes # (Manual) Eosinophils # (Manual) PT INR APTT D-Dimer Heparin Anti-Xa Level 0.21 L ABG pH 7.318 L POC ABG pCO2 POC ABG pO2 157.5 H ABG pO2 ABG HCO3 ABG Hemoglobin ABG Oxyhemoglobin ABG Sodium 135.6 L ABG Potassium 4.6 H ABG Chloride 110.0 H ABG Glucose 169 H Carboxyhemoglobin Sodium Potassium Chloride Carbon Dioxide BUN Creatinine Glucose POC Glucose 155 H Lactic Acid Calcium Phosphorus Magnesium Ferritin Direct Bilirubin AST ALT Alkaline Phosphatase Lactate Dehydrogenase Total Creatine Kinase C-Reactive Protein Total Protein Albumin Triglycerides Arterial Blood Glucose 169 H Arterial Blood Ionized Calcium Urine Creatinine Urine Chloride Vancomycin Trough Coronavirus (PCR) Crossmatch 06/23/20 06/23/20 06/23/20 04:00 04:00 05:24 WBC 27.4 H RBC Hgb 11.3 L Hct 33.8 L MCHC RDW Lymph % (Auto) [place] % (Auto) Lymph # (Auto) [place] # (Auto) Eos # (Auto) Seg Neutrophils % Seg Neuts % (Manual) 93.0 H Lymphocytes % (Manual) 1.0 L Monocytes % (Manual) Nucleated RBC % 1.0 H Seg Neutrophils # Seg Neutrophils # Man 25.5 H Lymphocytes # (Manual) 0.3 L Monocytes # (Manual) 1.1 H Eosinophils # (Manual) PT INR APTT D-Dimer Heparin Anti-Xa Level ABG pH POC ABG pCO2 POC ABG pO2 ABG pO2 ABG HCO3 ABG Hemoglobin ABG Oxyhemoglobin ABG Sodium ABG Potassium ABG Chloride ABG Glucose Carboxyhemoglobin Sodium Potassium Chloride 107.6 H Carbon Dioxide 20 L BUN 100 H Creatinine 4.7 H Glucose 168 H POC Glucose 151 H Lactic Acid Calcium Phosphorus Magnesium Ferritin Direct Bilirubin AST ALT Alkaline Phosphatase Lactate Dehydrogenase Total Creatine Kinase C-Reactive Protein Total Protein Albumin Triglycerides Arterial Blood Glucose Arterial Blood Ionized Calcium Urine Creatinine Urine Chloride Vancomycin Trough Coronavirus (PCR) Crossmatch 06/23/20 06/23/20 06/23/20 11:30 17:18 23:50 WBC RBC Hgb Hct MCHC RDW Lymph % (Auto) [place] % (Auto) Lymph # (Auto) [place] # (Auto) Eos # (Auto) Seg Neutrophils % Seg Neuts % (Manual) Lymphocytes % (Manual) Monocytes % (Manual) Nucleated RBC % Seg Neutrophils # Seg Neutrophils # Man Lymphocytes # (Manual) Monocytes # (Manual) Eosinophils # (Manual) PT INR APTT D-Dimer Heparin Anti-Xa Level ABG pH POC ABG pCO2 POC ABG pO2 ABG pO2 ABG HCO3 ABG Hemoglobin ABG Oxyhemoglobin ABG Sodium ABG Potassium ABG Chloride ABG Glucose Carboxyhemoglobin Sodium Potassium Chloride Carbon Dioxide BUN Creatinine Glucose POC Glucose 157 H 156 H 162 H Lactic Acid Calcium Phosphorus Magnesium Ferritin Direct Bilirubin AST ALT Alkaline Phosphatase Lactate Dehydrogenase Total Creatine Kinase C-Reactive Protein Total Protein Albumin Triglycerides Arterial Blood Glucose Arterial Blood Ionized Calcium Urine Creatinine Urine Chloride Vancomycin Trough Coronavirus (PCR) Crossmatch 06/24/20 06/24/20 06/24/20 04:41 05:57 06:30 WBC 34.3 H RBC Hgb 10.9 L Hct 32.6 L MCHC RDW Lymph % (Auto) 2.0 L [place] % (Auto) Lymph # (Auto) 0.7 L [place] # (Auto) 1.2 H Eos # (Auto) Seg Neutrophils % Seg Neuts % (Manual) 96.0 H Lymphocytes % (Manual) 3.0 L Monocytes % (Manual) Nucleated RBC % Seg Neutrophils # 32.3 H Seg Neutrophils # Man 32.9 H Lymphocytes # (Manual) 1.0 L Monocytes # (Manual) Eosinophils # (Manual) PT INR APTT D-Dimer Heparin Anti-Xa Level ABG pH POC ABG pCO2 POC ABG pO2 71.1 L ABG pO2 ABG HCO3 ABG Hemoglobin ABG Oxyhemoglobin 92.4 L ABG Sodium 115.6 L ABG Potassium ABG Chloride ABG Glucose 159 H Carboxyhemoglobin Sodium Potassium Chloride Carbon Dioxide BUN Creatinine Glucose POC Glucose 143 H Lactic Acid Calcium Phosphorus Magnesium Ferritin Direct Bilirubin AST ALT Alkaline Phosphatase Lactate Dehydrogenase Total Creatine Kinase C-Reactive Protein Total Protein Albumin Triglycerides Arterial Blood Glucose 159 H Arterial Blood Ionized Calcium 4.2 L Urine Creatinine Urine Chloride Vancomycin Trough Coronavirus (PCR) Crossmatch 06/24/20 06/24/20 06/24/20 07:03 09:37 11:56 WBC RBC Hgb Hct MCHC RDW Lymph % (Auto) [place] % (Auto) Lymph # (Auto) [place] # (Auto) Eos # (Auto) Seg Neutrophils % Seg Neuts % (Manual) Lymphocytes % (Manual) Monocytes % (Manual) Nucleated RBC % Seg Neutrophils # Seg Neutrophils # Man Lymphocytes # (Manual) Monocytes # (Manual) Eosinophils # (Manual) PT INR APTT D-Dimer Heparin Anti-Xa Level 0.26 L ABG pH POC ABG pCO2 POC ABG pO2 ABG pO2 ABG HCO3 ABG Hemoglobin ABG Oxyhemoglobin ABG Sodium ABG Potassium ABG Chloride ABG Glucose Carboxyhemoglobin Sodium Potassium 5.1 H Chloride Carbon Dioxide BUN 103 H Creatinine 5.0 H Glucose 163 H POC Glucose 149 H Lactic Acid Calcium 7.6 L Phosphorus Magnesium Ferritin Direct Bilirubin AST ALT Alkaline Phosphatase Lactate Dehydrogenase Total Creatine Kinase C-Reactive Protein Total Protein Albumin Triglycerides Arterial Blood Glucose Arterial Blood Ionized Calcium Urine Creatinine Urine Chloride Vancomycin Trough Coronavirus (PCR) Crossmatch 06/24/20 06/25/20 06/25/20 18:09 01:05 03:00 WBC RBC Hgb 10.6 L Hct 32.1 L MCHC RDW Lymph % (Auto) [place] % (Auto) Lymph # (Auto) [place] # (Auto) Eos # (Auto) Seg Neutrophils % Seg Neuts % (Manual) Lymphocytes % (Manual) Monocytes % (Manual) Nucleated RBC % Seg Neutrophils # Seg Neutrophils # Man Lymphocytes # (Manual) Monocytes # (Manual) Eosinophils # (Manual) PT INR APTT D-Dimer Heparin Anti-Xa Level ABG pH POC ABG pCO2 POC ABG pO2 ABG pO2 ABG HCO3 ABG Hemoglobin ABG Oxyhemoglobin ABG Sodium ABG Potassium ABG Chloride ABG Glucose Carboxyhemoglobin Sodium Potassium Chloride Carbon Dioxide BUN Creatinine Glucose POC Glucose 141 H 137 H Lactic Acid Calcium Phosphorus Magnesium Ferritin Direct Bilirubin AST ALT Alkaline Phosphatase Lactate Dehydrogenase Total Creatine Kinase C-Reactive Protein Total Protein Albumin Triglycerides Arterial Blood Glucose Arterial Blood Ionized Calcium Urine Creatinine Urine Chloride Vancomycin Trough Coronavirus (PCR) Crossmatch 06/25/20 06/25/20 06/25/20 03:48 05:17 12:08 WBC RBC Hgb Hct MCHC RDW Lymph % (Auto) [place] % (Auto) Lymph # (Auto) [place] # (Auto) Eos # (Auto) Seg Neutrophils % Seg Neuts % (Manual) Lymphocytes % (Manual) Monocytes % (Manual) Nucleated RBC % Seg Neutrophils # Seg Neutrophils # Man Lymphocytes # (Manual) Monocytes # (Manual) Eosinophils # (Manual) PT INR APTT D-Dimer Heparin Anti-Xa Level ABG pH POC ABG pCO2 29.4 L POC ABG pO2 67.1 L ABG pO2 ABG HCO3 ABG Hemoglobin 11.5 L ABG Oxyhemoglobin ABG Sodium 124.1 L ABG Potassium 4.6 H ABG Chloride ABG Glucose 159 H Carboxyhemoglobin Sodium Potassium Chloride Carbon Dioxide BUN Creatinine Glucose POC Glucose 149 H 150 H Lactic Acid Calcium Phosphorus Magnesium Ferritin Direct Bilirubin AST ALT Alkaline Phosphatase Lactate Dehydrogenase Total Creatine Kinase C-Reactive Protein Total Protein Albumin Triglycerides Arterial Blood Glucose 159 H Arterial Blood Ionized Calcium 4.2 L Urine Creatinine Urine Chloride Vancomycin Trough Coronavirus (PCR) Crossmatch 06/25/20 06/25/20 06/25/20 16:27 16:35 17:27 WBC RBC Hgb Hct MCHC RDW Lymph % (Auto) [place] % (Auto) Lymph # (Auto) [place] # (Auto) Eos # (Auto) Seg Neutrophils % Seg Neuts % (Manual) Lymphocytes % (Manual) Monocytes % (Manual) Nucleated RBC % Seg Neutrophils # Seg Neutrophils # Man Lymphocytes # (Manual) Monocytes # (Manual) Eosinophils # (Manual) PT INR APTT D-Dimer Heparin Anti-Xa Level < 0.10 L ABG pH POC ABG pCO2 POC ABG pO2 ABG pO2 ABG HCO3 ABG Hemoglobin ABG Oxyhemoglobin ABG Sodium ABG Potassium ABG Chloride ABG Glucose Carboxyhemoglobin Sodium Potassium Chloride Carbon Dioxide BUN Creatinine Glucose POC Glucose 143 H 156 H Lactic Acid Calcium Phosphorus Magnesium Ferritin Direct Bilirubin AST ALT Alkaline Phosphatase Lactate Dehydrogenase Total Creatine Kinase C-Reactive Protein Total Protein Albumin Triglycerides Arterial Blood Glucose Arterial Blood Ionized Calcium Urine Creatinine Urine Chloride Vancomycin Trough Coronavirus (PCR) Crossmatch 06/25/20 06/25/20 06/25/20 20:00 20:55 23:10 WBC 32.7 H RBC 3.06 L Hgb 9.0 L 9.5 L Hct 26.7 L 28.6 L MCHC RDW Lymph % (Auto) [place] % (Auto) Lymph # (Auto) [place] # (Auto) Eos # (Auto) Seg Neutrophils % Seg Neuts % (Manual) Lymphocytes % (Manual) 2.0 L Monocytes % (Manual) Nucleated RBC % Seg Neutrophils # Seg Neutrophils # Man 30.7 H Lymphocytes # (Manual) 0.7 L Monocytes # (Manual) 1.3 H Eosinophils # (Manual) PT 17.7 H INR 1.47 H APTT 65.8 H* D-Dimer Heparin Anti-Xa Level ABG pH POC ABG pCO2 POC ABG pO2 ABG pO2 ABG HCO3 ABG Hemoglobin ABG Oxyhemoglobin ABG Sodium ABG Potassium ABG Chloride ABG Glucose Carboxyhemoglobin Sodium Potassium Chloride Carbon Dioxide BUN Creatinine Glucose POC Glucose Lactic Acid Calcium Phosphorus Magnesium Ferritin Direct Bilirubin AST ALT Alkaline Phosphatase Lactate Dehydrogenase Total Creatine Kinase C-Reactive Protein Total Protein Albumin Triglycerides Arterial Blood Glucose Arterial Blood Ionized Calcium Urine Creatinine Urine Chloride Vancomycin Trough Coronavirus (PCR) Crossmatch 06/25/20 06/26/20 06/26/20 23:14 01:30 03:25 WBC RBC Hgb Hct MCHC RDW Lymph % (Auto) [place] % (Auto) Lymph # (Auto) [place] # (Auto) Eos # (Auto) Seg Neutrophils % Seg Neuts % (Manual) Lymphocytes % (Manual) Monocytes % (Manual) Nucleated RBC % Seg Neutrophils # Seg Neutrophils # Man Lymphocytes # (Manual) Monocytes # (Manual) Eosinophils # (Manual) PT INR APTT D-Dimer Heparin Anti-Xa Level < 0.10 L ABG pH POC ABG pCO2 POC ABG pO2 ABG pO2 ABG HCO3 ABG Hemoglobin 11.8 L ABG Oxyhemoglobin ABG Sodium 127.1 L ABG Potassium 5.4 H ABG Chloride ABG Glucose 155 H Carboxyhemoglobin 0.3 L Sodium Potassium Chloride Carbon Dioxide BUN Creatinine Glucose POC Glucose 148 H Lactic Acid Calcium Phosphorus Magnesium Ferritin Direct Bilirubin AST ALT Alkaline Phosphatase Lactate Dehydrogenase Total Creatine Kinase C-Reactive Protein Total Protein Albumin Triglycerides Arterial Blood Glucose 155 H Arterial Blood Ionized Calcium 4.2 L Urine Creatinine Urine Chloride Vancomycin Trough Coronavirus (PCR) Crossmatch 06/26/20 06/26/20 06/26/20 03:59 05:14 05:47 WBC 36.5 H RBC 3.26 L Hgb 9.7 L Hct 28.2 L MCHC RDW Lymph % (Auto) [place] % (Auto) Lymph # (Auto) [place] # (Auto) Eos # (Auto) Seg Neutrophils % Seg Neuts % (Manual) 92.0 H Lymphocytes % (Manual) 4.0 L Monocytes % (Manual) Nucleated RBC % Seg Neutrophils # Seg Neutrophils # Man 33.6 H Lymphocytes # (Manual) Monocytes # (Manual) Eosinophils # (Manual) PT INR APTT D-Dimer Heparin Anti-Xa Level ABG pH POC ABG pCO2 POC ABG pO2 ABG pO2 ABG HCO3 ABG Hemoglobin ABG Oxyhemoglobin ABG Sodium ABG Potassium ABG Chloride ABG Glucose Carboxyhemoglobin Sodium Potassium 5.9 H Chloride Carbon Dioxide 20 L BUN 144 H Creatinine 6.4 H Glucose 149 H POC Glucose 128 H Lactic Acid Calcium 7.6 L Phosphorus Magnesium Ferritin Direct Bilirubin AST ALT Alkaline Phosphatase Lactate Dehydrogenase Total Creatine Kinase C-Reactive Protein Total Protein Albumin Triglycerides Arterial Blood Glucose Arterial Blood Ionized Calcium Urine Creatinine Urine Chloride Vancomycin Trough Coronavirus (PCR) Crossmatch 06/26/20 06/26/20 06/26/20 05:47 12:47 17:42 WBC RBC Hgb Hct MCHC RDW Lymph % (Auto) [place] % (Auto) Lymph # (Auto) [place] # (Auto) Eos # (Auto) Seg Neutrophils % Seg Neuts % (Manual) Lymphocytes % (Manual) Monocytes % (Manual) Nucleated RBC % Seg Neutrophils # Seg Neutrophils # Man Lymphocytes # (Manual) Monocytes # (Manual) Eosinophils # (Manual) PT 17.4 H INR 1.44 H APTT D-Dimer Heparin Anti-Xa Level ABG pH POC ABG pCO2 POC ABG pO2 ABG pO2 ABG HCO3 ABG Hemoglobin ABG Oxyhemoglobin ABG Sodium ABG Potassium ABG Chloride ABG Glucose Carboxyhemoglobin Sodium Potassium Chloride Carbon Dioxide BUN Creatinine Glucose POC Glucose 124 H 127 H Lactic Acid Calcium Phosphorus Magnesium Ferritin Direct Bilirubin AST ALT Alkaline Phosphatase Lactate Dehydrogenase Total Creatine Kinase C-Reactive Protein Total Protein Albumin Triglycerides Arterial Blood Glucose Arterial Blood Ionized Calcium Urine Creatinine Urine Chloride Vancomycin Trough Coronavirus (PCR) Crossmatch 06/26/20 06/27/20 06/27/20 23:30 03:32 04:00 WBC RBC Hgb 8.7 L Hct 26.4 L MCHC RDW Lymph % (Auto) [place] % (Auto) Lymph # (Auto) [place] # (Auto) Eos # (Auto) Seg Neutrophils % Seg Neuts % (Manual) Lymphocytes % (Manual) Monocytes % (Manual) Nucleated RBC % Seg Neutrophils # Seg Neutrophils # Man Lymphocytes # (Manual) Monocytes # (Manual) Eosinophils # (Manual) PT INR APTT D-Dimer Heparin Anti-Xa Level ABG pH 7.298 L POC ABG pCO2 POC ABG pO2 ABG pO2 ABG HCO3 ABG Hemoglobin 9.6 L ABG Oxyhemoglobin ABG Sodium 124.4 L ABG Potassium 6.6 H ABG Chloride ABG Glucose 136 H Carboxyhemoglobin Sodium Potassium Chloride Carbon Dioxide BUN Creatinine Glucose POC Glucose 123 H Lactic Acid Calcium Phosphorus Magnesium Ferritin Direct Bilirubin AST ALT Alkaline Phosphatase Lactate Dehydrogenase Total Creatine Kinase C-Reactive Protein Total Protein Albumin Triglycerides Arterial Blood Glucose 136 H Arterial Blood Ionized Calcium 4.1 L Urine Creatinine Urine Chloride Vancomycin Trough Coronavirus (PCR) Crossmatch 06/27/20 06/27/20 06/27/20 05:26 10:14 11:58 WBC RBC Hgb Hct MCHC RDW Lymph % (Auto) [place] % (Auto) Lymph # (Auto) [place] # (Auto) Eos # (Auto) Seg Neutrophils % Seg Neuts % (Manual) Lymphocytes % (Manual) Monocytes % (Manual) Nucleated RBC % Seg Neutrophils # Seg Neutrophils # Man Lymphocytes # (Manual) Monocytes # (Manual) Eosinophils # (Manual) PT INR APTT D-Dimer Heparin Anti-Xa Level ABG pH POC ABG pCO2 POC ABG pO2 ABG pO2 ABG HCO3 ABG Hemoglobin ABG Oxyhemoglobin ABG Sodium ABG Potassium ABG Chloride ABG Glucose Carboxyhemoglobin Sodium 136 L Potassium 7.0 H* Chloride 97.8 L Carbon Dioxide BUN 172 H Creatinine 7.4 H Glucose 129 H POC Glucose 124 H 115 H Lactic Acid Calcium 7.6 L Phosphorus Magnesium Ferritin Direct Bilirubin AST ALT Alkaline Phosphatase Lactate Dehydrogenase Total Creatine Kinase C-Reactive Protein Total Protein Albumin Triglycerides Arterial Blood Glucose Arterial Blood Ionized Calcium Urine Creatinine Urine Chloride Vancomycin Trough Coronavirus (PCR) Crossmatch 06/27/20 06/27/20 06/27/20 17:32 18:30 23:24 WBC RBC Hgb Hct MCHC RDW Lymph % (Auto) [place] % (Auto) Lymph # (Auto) [place] # (Auto) Eos # (Auto) Seg Neutrophils % Seg Neuts % (Manual) Lymphocytes % (Manual) Monocytes % (Manual) Nucleated RBC % Seg Neutrophils # Seg Neutrophils # Man Lymphocytes # (Manual) Monocytes # (Manual) Eosinophils # (Manual) PT INR APTT D-Dimer Heparin Anti-Xa Level ABG pH POC ABG pCO2 POC ABG pO2 ABG pO2 ABG HCO3 ABG Hemoglobin ABG Oxyhemoglobin ABG Sodium ABG Potassium ABG Chloride ABG Glucose Carboxyhemoglobin Sodium Potassium 7.3 H* Chloride Carbon Dioxide BUN Creatinine Glucose POC Glucose 122 H 116 H Lactic Acid Calcium Phosphorus Magnesium Ferritin Direct Bilirubin AST ALT Alkaline Phosphatase Lactate Dehydrogenase Total Creatine Kinase C-Reactive Protein Total Protein Albumin Triglycerides Arterial Blood Glucose Arterial Blood Ionized Calcium Urine Creatinine Urine Chloride Vancomycin Trough Coronavirus (PCR) Crossmatch 06/28/20 06/28/20 06/28/20 00:00 02:16 05:37 WBC RBC Hgb Hct MCHC RDW Lymph % (Auto) [place] % (Auto) Lymph # (Auto) [place] # (Auto) Eos # (Auto) Seg Neutrophils % Seg Neuts % (Manual) Lymphocytes % (Manual) Monocytes % (Manual) Nucleated RBC % Seg Neutrophils # Seg Neutrophils # Man Lymphocytes # (Manual) Monocytes # (Manual) Eosinophils # (Manual) PT INR APTT D-Dimer Heparin Anti-Xa Level ABG pH POC ABG pCO2 POC ABG pO2 79.0 L ABG pO2 ABG HCO3 ABG Hemoglobin 11.7 L ABG Oxyhemoglobin ABG Sodium 128.1 L ABG Potassium 6.6 H ABG Chloride ABG Glucose 124 H Carboxyhemoglobin Sodium Potassium 7.3 H* Chloride Carbon Dioxide BUN Creatinine Glucose POC Glucose 115 H Lactic Acid Calcium Phosphorus Magnesium Ferritin Direct Bilirubin AST ALT Alkaline Phosphatase Lactate Dehydrogenase Total Creatine Kinase C-Reactive Protein Total Protein Albumin Triglycerides Arterial Blood Glucose 124 H Arterial Blood Ionized Calcium 4.2 L Urine Creatinine Urine Chloride Vancomycin Trough Coronavirus (PCR) Crossmatch 06/28/20 06/28/20 06/28/20 10:03 10:03 11:51 WBC 33.6 H RBC 3.03 L Hgb 8.9 L Hct 27.0 L MCHC RDW Lymph % (Auto) [place] % (Auto) Lymph # (Auto) [place] # (Auto) Eos # (Auto) Seg Neutrophils % Seg Neuts % (Manual) Lymphocytes % (Manual) Monocytes % (Manual) Nucleated RBC % Seg Neutrophils # Seg Neutrophils # Man Lymphocytes # (Manual) Monocytes # (Manual) Eosinophils # (Manual) PT INR APTT D-Dimer Heparin Anti-Xa Level ABG pH POC ABG pCO2 POC ABG pO2 ABG pO2 ABG HCO3 ABG Hemoglobin ABG Oxyhemoglobin ABG Sodium ABG Potassium ABG Chloride ABG Glucose Carboxyhemoglobin Sodium 136 L Potassium 6.5 H* Chloride Carbon Dioxide 20 L BUN 129 H Creatinine 5.8 H Glucose 113 H POC Glucose 107 H Lactic Acid Calcium 7.6 L Phosphorus Magnesium Ferritin Direct Bilirubin AST ALT Alkaline Phosphatase Lactate Dehydrogenase Total Creatine Kinase C-Reactive Protein Total Protein Albumin Triglycerides Arterial Blood Glucose Arterial Blood Ionized Calcium Urine Creatinine Urine Chloride Vancomycin Trough Coronavirus (PCR) Crossmatch 06/28/20 06/28/20 06/29/20 17:45 Unknown 03:15 WBC RBC Hgb Hct MCHC RDW Lymph % (Auto) [place] % (Auto) Lymph # (Auto) [place] # (Auto) Eos # (Auto) Seg Neutrophils % Seg Neuts % (Manual) Lymphocytes % (Manual) Monocytes % (Manual) Nucleated RBC % Seg Neutrophils # Seg Neutrophils # Man Lymphocytes # (Manual) Monocytes # (Manual) Eosinophils # (Manual) PT INR APTT D-Dimer Heparin Anti-Xa Level ABG pH POC ABG pCO2 POC ABG pO2 ABG pO2 ABG HCO3 ABG Hemoglobin 7.8 L ABG Oxyhemoglobin ABG Sodium 127.4 L ABG Potassium 5.5 H ABG Chloride 97.0 L ABG Glucose 96 H Carboxyhemoglobin Sodium Potassium 5.4 H Chloride Carbon Dioxide BUN Creatinine Glucose POC Glucose 117 H Lactic Acid Calcium Phosphorus Magnesium Ferritin Direct Bilirubin AST ALT Alkaline Phosphatase Lactate Dehydrogenase Total Creatine Kinase C-Reactive Protein Total Protein Albumin Triglycerides Arterial Blood Glucose 96 H Arterial Blood Ionized Calcium 4.0 L Urine Creatinine Urine Chloride Vancomycin Trough Coronavirus (PCR) Crossmatch 06/29/20 06/29/20 06/29/20 03:45 Unknown Unknown WBC RBC Hgb Hct MCHC RDW Lymph % (Auto) [place] % (Auto) Lymph # (Auto) [place] # (Auto) Eos # (Auto) Seg Neutrophils % Seg Neuts % (Manual) Lymphocytes % (Manual) Monocytes % (Manual) Nucleated RBC % Seg Neutrophils # Seg Neutrophils # Man Lymphocytes # (Manual) Monocytes # (Manual) Eosinophils # (Manual) PT INR APTT D-Dimer Heparin Anti-Xa Level ABG pH POC ABG pCO2 POC ABG pO2 ABG pO2 ABG HCO3 ABG Hemoglobin ABG Oxyhemoglobin ABG Sodium ABG Potassium ABG Chloride ABG Glucose Carboxyhemoglobin Sodium 135 L Potassium 6.0 H 6.1 H* Chloride 94.8 L Carbon Dioxide BUN 109 H 114 H Creatinine 5.5 H Glucose POC Glucose Lactic Acid Calcium 7.4 L Phosphorus Magnesium Ferritin Direct Bilirubin AST 47 H ALT Alkaline Phosphatase Lactate Dehydrogenase Total Creatine Kinase C-Reactive Protein Total Protein 4.9 L Albumin 2.2 L Triglycerides Arterial Blood Glucose Arterial Blood Ionized Calcium Urine Creatinine Urine Chloride Vancomycin Trough Coronavirus (PCR) Crossmatch 06/29/20 06/29/20 06/30/20 Unknown Unknown 03:32 WBC 20.7 H RBC 2.57 L Hgb 7.6 L Hct 23.0 L MCHC RDW Lymph % (Auto) [place] % (Auto) Lymph # (Auto) [place] # (Auto) Eos # (Auto) Seg Neutrophils % Seg Neuts % (Manual) Lymphocytes % (Manual) Monocytes % (Manual) Nucleated RBC % Seg Neutrophils # Seg Neutrophils # Man Lymphocytes # (Manual) Monocytes # (Manual) Eosinophils # (Manual) PT INR APTT D-Dimer Heparin Anti-Xa Level ABG pH POC ABG pCO2 POC ABG pO2 ABG pO2 ABG HCO3 ABG Hemoglobin 11.4 L ABG Oxyhemoglobin ABG Sodium 130.1 L ABG Potassium 5.0 H ABG Chloride ABG Glucose Carboxyhemoglobin Sodium Potassium Chloride Carbon Dioxide BUN Creatinine Glucose POC Glucose Lactic Acid Calcium Phosphorus Magnesium Ferritin Direct Bilirubin AST ALT Alkaline Phosphatase Lactate Dehydrogenase Total Creatine Kinase 618 H C-Reactive Protein Total Protein Albumin Triglycerides Arterial Blood Glucose Arterial Blood Ionized Calcium 3.9 L Urine Creatinine Urine Chloride Vancomycin Trough Coronavirus (PCR) Crossmatch 06/30/20 06/30/20 06/30/20 03:50 03:50 11:39 WBC 13.1 H RBC Hgb Hct MCHC RDW Lymph % (Auto) [place] % (Auto) Lymph # (Auto) [place] # (Auto) Eos # (Auto) Seg Neutrophils % Seg Neuts % (Manual) 95.0 H Lymphocytes % (Manual) 3.0 L Monocytes % (Manual) Nucleated RBC % Seg Neutrophils # Seg Neutrophils # Man 12.4 H Lymphocytes # (Manual) 0.4 L Monocytes # (Manual) Eosinophils # (Manual) PT INR APTT D-Dimer Heparin Anti-Xa Level ABG pH POC ABG pCO2 POC ABG pO2 ABG pO2 ABG HCO3 ABG Hemoglobin ABG Oxyhemoglobin ABG Sodium ABG Potassium ABG Chloride ABG Glucose Carboxyhemoglobin Sodium 135 L Potassium 5.4 H D Chloride 93.6 L Carbon Dioxide BUN 85 H Creatinine 4.6 H Glucose POC Glucose 111 H Lactic Acid Calcium 7.1 L Phosphorus 9.40 H Magnesium Ferritin Direct Bilirubin AST ALT Alkaline Phosphatase Lactate Dehydrogenase Total Creatine Kinase C-Reactive Protein Total Protein Albumin Triglycerides Arterial Blood Glucose Arterial Blood Ionized Calcium Urine Creatinine Urine Chloride Vancomycin Trough Coronavirus (PCR) Crossmatch 06/30/20 06/30/20 07/01/20 13:12 Unknown 03:19 WBC RBC Hgb 7.8 L D Hct 23.2 L D MCHC RDW Lymph % (Auto) [place] % (Auto) Lymph # (Auto) [place] # (Auto) Eos # (Auto) Seg Neutrophils % Seg Neuts % (Manual) Lymphocytes % (Manual) Monocytes % (Manual) Nucleated RBC % Seg Neutrophils # Seg Neutrophils # Man Lymphocytes # (Manual) Monocytes # (Manual) Eosinophils # (Manual) PT INR APTT D-Dimer Heparin Anti-Xa Level ABG pH 7.461 H POC ABG pCO2 POC ABG pO2 77.2 L ABG pO2 ABG HCO3 ABG Hemoglobin 6.9 L ABG Oxyhemoglobin ABG Sodium 128.5 L ABG Potassium ABG Chloride 97.0 L ABG Glucose Carboxyhemoglobin Sodium Potassium Chloride Carbon Dioxide BUN Creatinine Glucose POC Glucose Lactic Acid Calcium Phosphorus Magnesium Ferritin Direct Bilirubin AST ALT Alkaline Phosphatase Lactate Dehydrogenase Total Creatine Kinase C-Reactive Protein Total Protein Albumin Triglycerides Arterial Blood Glucose Arterial Blood Ionized Calcium 3.7 L Urine Creatinine Urine Chloride Vancomycin Trough Coronavirus (PCR) Positive A Crossmatch 07/01/20 07/01/20 07/01/20 06:00 06:00 11:04 WBC 16.7 H RBC 2.16 L Hgb 6.4 L Hct 19.2 L* MCHC RDW Lymph % (Auto) [place] % (Auto) Lymph # (Auto) [place] # (Auto) Eos # (Auto) Seg Neutrophils % Seg Neuts % (Manual) Lymphocytes % (Manual) Monocytes % (Manual) Nucleated RBC % Seg Neutrophils # Seg Neutrophils # Man Lymphocytes # (Manual) Monocytes # (Manual) Eosinophils # (Manual) PT INR APTT D-Dimer Heparin Anti-Xa Level ABG pH POC ABG pCO2 POC ABG pO2 ABG pO2 ABG HCO3 ABG Hemoglobin ABG Oxyhemoglobin ABG Sodium ABG Potassium ABG Chloride ABG Glucose Carboxyhemoglobin Sodium 136 L Potassium Chloride 95.8 L Carbon Dioxide BUN 72 H Creatinine 4.3 H Glucose POC Glucose Lactic Acid Calcium 6.7 L Phosphorus Magnesium Ferritin Direct Bilirubin AST ALT Alkaline Phosphatase Lactate Dehydrogenase Total Creatine Kinase C-Reactive Protein Total Protein Albumin Triglycerides 250 H Arterial Blood Glucose Arterial Blood Ionized Calcium Urine Creatinine Urine Chloride Vancomycin Trough Coronavirus (PCR) Crossmatch See Detail 07/02/20 07/02/20 07/02/20 04:44 06:00 11:33 WBC 14.6 H RBC 2.47 L Hgb 7.4 L Hct 21.8 L MCHC RDW Lymph % (Auto) [place] % (Auto) Lymph # (Auto) [place] # (Auto) Eos # (Auto) Seg Neutrophils % Seg Neuts % (Manual) Lymphocytes % (Manual) Monocytes % (Manual) Nucleated RBC % Seg Neutrophils # Seg Neutrophils # Man Lymphocytes # (Manual) Monocytes # (Manual) Eosinophils # (Manual) PT INR APTT D-Dimer Heparin Anti-Xa Level ABG pH 7.457 H POC ABG pCO2 POC ABG pO2 79.4 L ABG pO2 ABG HCO3 ABG Hemoglobin 8.5 L ABG Oxyhemoglobin ABG Sodium 128.4 L ABG Potassium ABG Chloride 97.0 L ABG Glucose 100 H Carboxyhemoglobin Sodium 133 L Potassium 5.2 H Chloride 93.3 L Carbon Dioxide BUN 66 H Creatinine 4.1 H Glucose 102 H POC Glucose Lactic Acid Calcium 7.2 L Phosphorus Magnesium Ferritin Direct Bilirubin AST ALT Alkaline Phosphatase Lactate Dehydrogenase Total Creatine Kinase C-Reactive Protein Total Protein Albumin Triglycerides Arterial Blood Glucose 100 H Arterial Blood Ionized Calcium 3.9 L Urine Creatinine Urine Chloride Vancomycin Trough Coronavirus (PCR) Crossmatch 07/02/20 07/03/20 07/03/20 11:33 03:54 09:15 WBC 16.6 H RBC 2.44 L Hgb 7.3 L Hct 21.4 L MCHC RDW Lymph % (Auto) [place] % (Auto) Lymph # (Auto) [place] # (Auto) Eos # (Auto) Seg Neutrophils % Seg Neuts % (Manual) Lymphocytes % (Manual) Monocytes % (Manual) Nucleated RBC % Seg Neutrophils # Seg Neutrophils # Man Lymphocytes # (Manual) Monocytes # (Manual) Eosinophils # (Manual) PT INR APTT D-Dimer Heparin Anti-Xa Level ABG pH POC ABG pCO2 POC ABG pO2 66.1 L ABG pO2 ABG HCO3 ABG Hemoglobin 8.0 L ABG Oxyhemoglobin ABG Sodium 124.6 L ABG Potassium 5.5 H ABG Chloride 96.0 L ABG Glucose 111 H Carboxyhemoglobin Sodium Potassium Chloride Carbon Dioxide BUN Creatinine Glucose POC Glucose Lactic Acid Calcium Phosphorus Magnesium Ferritin Direct Bilirubin 0.7 H AST 94 H ALT 60 H Alkaline Phosphatase Lactate Dehydrogenase Total Creatine Kinase C-Reactive Protein Total Protein 4.4 L Albumin 1.9 L Triglycerides Arterial Blood Glucose 111 H Arterial Blood Ionized Calcium 3.8 L Urine Creatinine Urine Chloride Vancomycin Trough Coronavirus (PCR) Crossmatch 07/03/20 07/03/20 07/03/20 09:15 10:10 14:50 WBC RBC Hgb Hct MCHC RDW Lymph % (Auto) [place] % (Auto) Lymph # (Auto) [place] # (Auto) Eos # (Auto) Seg Neutrophils % Seg Neuts % (Manual) Lymphocytes % (Manual) Monocytes % (Manual) Nucleated RBC % Seg Neutrophils # Seg Neutrophils # Man Lymphocytes # (Manual) Monocytes # (Manual) Eosinophils # (Manual) PT INR APTT D-Dimer 6608.00 H Heparin Anti-Xa Level ABG pH POC ABG pCO2 POC ABG pO2 ABG pO2 ABG HCO3 ABG Hemoglobin ABG Oxyhemoglobin ABG Sodium ABG Potassium ABG Chloride ABG Glucose Carboxyhemoglobin Sodium 133 L Potassium 6.2 H* Chloride 93.1 L Carbon Dioxide BUN 89 H Creatinine 5.1 H Glucose POC Glucose Lactic Acid Calcium 7.0 L Phosphorus Magnesium Ferritin Direct Bilirubin AST ALT Alkaline Phosphatase Lactate Dehydrogenase Total Creatine Kinase C-Reactive Protein Total Protein Albumin Triglycerides Arterial Blood Glucose Arterial Blood Ionized Calcium Urine Creatinine Urine Chloride Vancomycin Trough Coronavirus (PCR) Positive A Crossmatch 07/03/20 07/03/20 07/03/20 14:50 14:50 14:50 WBC RBC Hgb Hct MCHC RDW Lymph % (Auto) [place] % (Auto) Lymph # (Auto) [place] # (Auto) Eos # (Auto) Seg Neutrophils % Seg Neuts % (Manual) Lymphocytes % (Manual) Monocytes % (Manual) Nucleated RBC % Seg Neutrophils # Seg Neutrophils # Man Lymphocytes # (Manual) Monocytes # (Manual) Eosinophils # (Manual) PT INR APTT D-Dimer Heparin Anti-Xa Level ABG pH POC ABG pCO2 POC ABG pO2 ABG pO2 ABG HCO3 ABG Hemoglobin ABG Oxyhemoglobin ABG Sodium ABG Potassium ABG Chloride ABG Glucose Carboxyhemoglobin Sodium Potassium Chloride Carbon Dioxide BUN Creatinine Glucose POC Glucose Lactic Acid < 0.20 L Calcium Phosphorus Magnesium Ferritin 1171.0 H Direct Bilirubin AST ALT Alkaline Phosphatase Lactate Dehydrogenase 525 H Total Creatine Kinase C-Reactive Protein 31.50 H Total Protein Albumin Triglycerides Arterial Blood Glucose Arterial Blood Ionized Calcium Urine Creatinine Urine Chloride Vancomycin Trough Coronavirus (PCR) Crossmatch 07/03/20 07/04/20 07/04/20 16:47 05:20 05:20 WBC 11.8 H RBC 2.32 L Hgb 6.7 L Hct 20.8 L MCHC RDW Lymph % (Auto) 2.6 L [place] % (Auto) Lymph # (Auto) 0.3 L [place] # (Auto) Eos # (Auto) Seg Neutrophils % Seg Neuts % (Manual) Lymphocytes % (Manual) Monocytes % (Manual) Nucleated RBC % Seg Neutrophils # 11.0 H Seg Neutrophils # Man Lymphocytes # (Manual) Monocytes # (Manual) Eosinophils # (Manual) PT INR APTT D-Dimer Heparin Anti-Xa Level ABG pH POC ABG pCO2 POC ABG pO2 ABG pO2 ABG HCO3 ABG Hemoglobin ABG Oxyhemoglobin ABG Sodium ABG Potassium ABG Chloride ABG Glucose Carboxyhemoglobin Sodium Potassium 6.0 H Chloride 97.8 L Carbon Dioxide BUN 75 H Creatinine 4.5 H Glucose 121 H POC Glucose 107 H Lactic Acid Calcium 7.9 L Phosphorus Magnesium Ferritin Direct Bilirubin AST ALT Alkaline Phosphatase Lactate Dehydrogenase Total Creatine Kinase C-Reactive Protein Total Protein Albumin Triglycerides Arterial Blood Glucose Arterial Blood Ionized Calcium Urine Creatinine Urine Chloride Vancomycin Trough Coronavirus (PCR) Crossmatch 07/04/20 07/04/20 07/04/20 05:20 05:50 09:25 WBC RBC Hgb Hct MCHC RDW Lymph % (Auto) [place] % (Auto) Lymph # (Auto) [place] # (Auto) Eos # (Auto) Seg Neutrophils % Seg Neuts % (Manual) Lymphocytes % (Manual) Monocytes % (Manual) Nucleated RBC % Seg Neutrophils # Seg Neutrophils # Man Lymphocytes # (Manual) Monocytes # (Manual) Eosinophils # (Manual) PT INR APTT D-Dimer Heparin Anti-Xa Level ABG pH 7.324 L POC ABG pCO2 POC ABG pO2 ABG pO2 98.9 H ABG HCO3 26.8 H ABG Hemoglobin < 5.1 L ABG Oxyhemoglobin ABG Sodium ABG Potassium ABG Chloride ABG Glucose Carboxyhemoglobin Sodium Potassium Chloride Carbon Dioxide BUN Creatinine Glucose POC Glucose 114 H Lactic Acid Calcium Phosphorus Magnesium Ferritin Direct Bilirubin AST ALT Alkaline Phosphatase Lactate Dehydrogenase Total Creatine Kinase C-Reactive Protein Total Protein Albumin Triglycerides Arterial Blood Glucose Arterial Blood Ionized Calcium Urine Creatinine Urine Chloride Vancomycin Trough Coronavirus (PCR) Crossmatch See Detail 07/04/20 07/04/20 07/04/20 12:33 17:41 23:04 WBC RBC Hgb Hct MCHC RDW Lymph % (Auto) [place] % (Auto) Lymph # (Auto) [place] # (Auto) Eos # (Auto) Seg Neutrophils % Seg Neuts % (Manual) Lymphocytes % (Manual) Monocytes % (Manual) Nucleated RBC % Seg Neutrophils # Seg Neutrophils # Man Lymphocytes # (Manual) Monocytes # (Manual) Eosinophils # (Manual) PT INR APTT D-Dimer Heparin Anti-Xa Level ABG pH POC ABG pCO2 POC ABG pO2 ABG pO2 ABG HCO3 ABG Hemoglobin ABG Oxyhemoglobin ABG Sodium ABG Potassium ABG Chloride ABG Glucose Carboxyhemoglobin Sodium Potassium Chloride Carbon Dioxide BUN Creatinine Glucose POC Glucose 119 H 109 H 116 H Lactic Acid Calcium Phosphorus Magnesium Ferritin Direct Bilirubin AST ALT Alkaline Phosphatase Lactate Dehydrogenase Total Creatine Kinase C-Reactive Protein Total Protein Albumin Triglycerides Arterial Blood Glucose Arterial Blood Ionized Calcium Urine Creatinine Urine Chloride Vancomycin Trough Coronavirus (PCR) Crossmatch 07/05/20 07/05/20 07/05/20 04:30 08:21 08:21 WBC RBC 2.77 L Hgb 7.9 L Hct 23.9 L MCHC RDW 16.7 H Lymph % (Auto) 7.5 L [place] % (Auto) Lymph # (Auto) 0.7 L [place] # (Auto) Eos # (Auto) Seg Neutrophils % 85.8 H Seg Neuts % (Manual) Lymphocytes % (Manual) Monocytes % (Manual) Nucleated RBC % Seg Neutrophils # 7.8 H Seg Neutrophils # Man Lymphocytes # (Manual) Monocytes # (Manual) Eosinophils # (Manual) PT INR APTT D-Dimer Heparin Anti-Xa Level ABG pH 7.295 L POC ABG pCO2 POC ABG pO2 ABG pO2 151.9 H ABG HCO3 26.8 H ABG Hemoglobin 7.3 L ABG Oxyhemoglobin ABG Sodium ABG Potassium ABG Chloride ABG Glucose Carboxyhemoglobin Sodium Potassium Chloride Carbon Dioxide BUN Creatinine Glucose POC Glucose Lactic Acid Calcium Phosphorus Magnesium Ferritin Direct Bilirubin AST ALT Alkaline Phosphatase Lactate Dehydrogenase Total Creatine Kinase C-Reactive Protein Total Protein Albumin Triglycerides 258 H Arterial Blood Glucose Arterial Blood Ionized Calcium Urine Creatinine Urine Chloride Vancomycin Trough Coronavirus (PCR) Crossmatch 07/05/20 07/05/20 07/06/20 08:21 12:12 04:29 WBC RBC Hgb Hct MCHC RDW Lymph % (Auto) [place] % (Auto) Lymph # (Auto) [place] # (Auto) Eos # (Auto) Seg Neutrophils % Seg Neuts % (Manual) Lymphocytes % (Manual) Monocytes % (Manual) Nucleated RBC % Seg Neutrophils # Seg Neutrophils # Man Lymphocytes # (Manual) Monocytes # (Manual) Eosinophils # (Manual) PT INR APTT D-Dimer Heparin Anti-Xa Level ABG pH 7.291 L POC ABG pCO2 51.3 H POC ABG pO2 ABG pO2 ABG HCO3 ABG Hemoglobin 8.5 L ABG Oxyhemoglobin ABG Sodium 129.6 L ABG Potassium 4.8 H ABG Chloride 96.0 L ABG Glucose Carboxyhemoglobin Sodium 133 L Potassium 5.6 H Chloride 94.4 L Carbon Dioxide BUN 80 H Creatinine 4.2 H Glucose 114 H POC Glucose 106 H Lactic Acid Calcium 7.6 L Phosphorus Magnesium Ferritin Direct Bilirubin 0.5 H AST 75 H ALT 86 H Alkaline Phosphatase Lactate Dehydrogenase Total Creatine Kinase C-Reactive Protein Total Protein 5.6 L D Albumin 1.9 L Triglycerides Arterial Blood Glucose Arterial Blood Ionized Calcium 4.2 L Urine Creatinine Urine Chloride Vancomycin Trough Coronavirus (PCR) Crossmatch 07/06/20 07/06/20 07/06/20 11:35 11:35 12:16 WBC RBC 2.54 L Hgb 7.5 L Hct 21.5 L MCHC 35 H RDW 15.7 H Lymph % (Auto) [place] % (Auto) Lymph # (Auto) [place] # (Auto) Eos # (Auto) Seg Neutrophils % Seg Neuts % (Manual) Lymphocytes % (Manual) Monocytes % (Manual) Nucleated RBC % Seg Neutrophils # Seg Neutrophils # Man Lymphocytes # (Manual) Monocytes # (Manual) Eosinophils # (Manual) PT INR APTT D-Dimer Heparin Anti-Xa Level ABG pH POC ABG pCO2 POC ABG pO2 ABG pO2 ABG HCO3 ABG Hemoglobin ABG Oxyhemoglobin ABG Sodium ABG Potassium ABG Chloride ABG Glucose Carboxyhemoglobin Sodium 130 L Potassium Chloride 92.2 L Carbon Dioxide 19 L D BUN 107 H Creatinine 5.1 H Glucose 106 H POC Glucose 106 H Lactic Acid Calcium 7.5 L Phosphorus Magnesium Ferritin Direct Bilirubin AST ALT Alkaline Phosphatase Lactate Dehydrogenase Total Creatine Kinase C-Reactive Protein Total Protein Albumin Triglycerides Arterial Blood Glucose Arterial Blood Ionized Calcium Urine Creatinine Urine Chloride Vancomycin Trough Coronavirus (PCR) Crossmatch 07/06/20 07/06/20 07/06/20 17:01 21:56 23:41 WBC RBC Hgb Hct MCHC RDW Lymph % (Auto) [place] % (Auto) Lymph # (Auto) [place] # (Auto) Eos # (Auto) Seg Neutrophils % Seg Neuts % (Manual) Lymphocytes % (Manual) Monocytes % (Manual) Nucleated RBC % Seg Neutrophils # Seg Neutrophils # Man Lymphocytes # (Manual) Monocytes # (Manual) Eosinophils # (Manual) PT INR APTT D-Dimer Heparin Anti-Xa Level ABG pH POC ABG pCO2 POC ABG pO2 ABG pO2 ABG HCO3 ABG Hemoglobin ABG Oxyhemoglobin ABG Sodium ABG Potassium ABG Chloride ABG Glucose Carboxyhemoglobin Sodium 135 L Potassium 5.1 H Chloride Carbon Dioxide BUN 73 H Creatinine 4.0 H Glucose 112 H POC Glucose 109 H 111 H Lactic Acid Calcium 7.8 L Phosphorus Magnesium Ferritin Direct Bilirubin AST ALT Alkaline Phosphatase Lactate Dehydrogenase Total Creatine Kinase C-Reactive Protein Total Protein Albumin Triglycerides Arterial Blood Glucose Arterial Blood Ionized Calcium Urine Creatinine Urine Chloride Vancomycin Trough Coronavirus (PCR) Crossmatch 07/07/20 07/07/20 07/07/20 04:18 05:04 05:29 WBC RBC 2.46 L Hgb 7.6 L Hct 21.5 L MCHC 35 H RDW 16.5 H Lymph % (Auto) [place] % (Auto) Lymph # (Auto) [place] # (Auto) Eos # (Auto) Seg Neutrophils % Seg Neuts % (Manual) 82.0 H Lymphocytes % (Manual) Monocytes % (Manual) Nucleated RBC % 1.0 H Seg Neutrophils # Seg Neutrophils # Man Lymphocytes # (Manual) 1.1 L Monocytes # (Manual) Eosinophils # (Manual) PT INR APTT D-Dimer Heparin Anti-Xa Level ABG pH POC ABG pCO2 POC ABG pO2 79.6 L ABG pO2 ABG HCO3 ABG Hemoglobin 8.2 L ABG Oxyhemoglobin ABG Sodium 133.3 L ABG Potassium 4.7 H ABG Chloride ABG Glucose 135 H Carboxyhemoglobin Sodium Potassium Chloride Carbon Dioxide BUN Creatinine Glucose POC Glucose 112 H Lactic Acid Calcium Phosphorus Magnesium Ferritin Direct Bilirubin AST ALT Alkaline Phosphatase Lactate Dehydrogenase Total Creatine Kinase C-Reactive Protein Total Protein Albumin Triglycerides Arterial Blood Glucose 135 H Arterial Blood Ionized Calcium 4.5 L Urine Creatinine Urine Chloride Vancomycin Trough Coronavirus (PCR) Crossmatch 07/07/20 07/07/20 07/07/20 10:17 12:18 17:43 WBC RBC Hgb Hct MCHC RDW Lymph % (Auto) [place] % (Auto) Lymph # (Auto) [place] # (Auto) Eos # (Auto) Seg Neutrophils % Seg Neuts % (Manual) Lymphocytes % (Manual) Monocytes % (Manual) Nucleated RBC % Seg Neutrophils # Seg Neutrophils # Man Lymphocytes # (Manual) Monocytes # (Manual) Eosinophils # (Manual) PT INR APTT D-Dimer Heparin Anti-Xa Level ABG pH POC ABG pCO2 POC ABG pO2 ABG pO2 ABG HCO3 ABG Hemoglobin ABG Oxyhemoglobin ABG Sodium ABG Potassium ABG Chloride ABG Glucose Carboxyhemoglobin Sodium 136 L Potassium Chloride 96.8 L Carbon Dioxide BUN 82 H Creatinine 4.3 H Glucose 129 H POC Glucose 108 H 116 H Lactic Acid Calcium 7.8 L Phosphorus Magnesium Ferritin Direct Bilirubin AST ALT Alkaline Phosphatase Lactate Dehydrogenase Total Creatine Kinase C-Reactive Protein Total Protein Albumin Triglycerides Arterial Blood Glucose Arterial Blood Ionized Calcium Urine Creatinine Urine Chloride Vancomycin Trough Coronavirus (PCR) Crossmatch 07/07/20 07/08/20 07/08/20 23:31 04:00 04:00 WBC RBC 2.52 L Hgb 7.3 L Hct 22.2 L MCHC RDW 16.6 H Lymph % (Auto) 11.5 L [place] % (Auto) Lymph # (Auto) [place] # (Auto) Eos # (Auto) Seg Neutrophils % 78.2 H Seg Neuts % (Manual) Lymphocytes % (Manual) Monocytes % (Manual) Nucleated RBC % Seg Neutrophils # 8.0 H Seg Neutrophils # Man Lymphocytes # (Manual) Monocytes # (Manual) Eosinophils # (Manual) PT INR APTT D-Dimer Heparin Anti-Xa Level ABG pH POC ABG pCO2 POC ABG pO2 ABG pO2 ABG HCO3 ABG Hemoglobin ABG Oxyhemoglobin ABG Sodium ABG Potassium ABG Chloride ABG Glucose Carboxyhemoglobin Sodium 132 L Potassium 5.4 H Chloride 92.5 L Carbon Dioxide BUN 98 H Creatinine 4.9 H Glucose 105 H POC Glucose 117 H Lactic Acid Calcium 7.9 L Phosphorus Magnesium Ferritin Direct Bilirubin AST ALT Alkaline Phosphatase Lactate Dehydrogenase Total Creatine Kinase C-Reactive Protein Total Protein Albumin Triglycerides Arterial Blood Glucose Arterial Blood Ionized Calcium Urine Creatinine Urine Chloride Vancomycin Trough Coronavirus (PCR) Crossmatch 07/08/20 07/08/20 07/08/20 04:09 11:34 17:05 WBC RBC Hgb Hct MCHC RDW Lymph % (Auto) [place] % (Auto) Lymph # (Auto) [place] # (Auto) Eos # (Auto) Seg Neutrophils % Seg Neuts % (Manual) Lymphocytes % (Manual) Monocytes % (Manual) Nucleated RBC % Seg Neutrophils # Seg Neutrophils # Man Lymphocytes # (Manual) Monocytes # (Manual) Eosinophils # (Manual) PT INR APTT D-Dimer Heparin Anti-Xa Level ABG pH 7.220 L POC ABG pCO2 60.5 H POC ABG pO2 ABG pO2 ABG HCO3 ABG Hemoglobin 8.2 L ABG Oxyhemoglobin ABG Sodium 131.3 L ABG Potassium 5.2 H ABG Chloride ABG Glucose 103 H Carboxyhemoglobin Sodium Potassium Chloride Carbon Dioxide BUN Creatinine Glucose POC Glucose 140 H 125 H Lactic Acid Calcium Phosphorus Magnesium Ferritin Direct Bilirubin AST ALT Alkaline Phosphatase Lactate Dehydrogenase Total Creatine Kinase C-Reactive Protein Total Protein Albumin Triglycerides Arterial Blood Glucose 103 H Arterial Blood Ionized Calcium 4.3 L Urine Creatinine Urine Chloride Vancomycin Trough Coronavirus (PCR) Crossmatch 07/08/20 07/08/20 07/09/20 20:21 23:43 05:10 WBC RBC Hgb Hct MCHC RDW Lymph % (Auto) [place] % (Auto) Lymph # (Auto) [place] # (Auto) Eos # (Auto) Seg Neutrophils % Seg Neuts % (Manual) Lymphocytes % (Manual) Monocytes % (Manual) Nucleated RBC % Seg Neutrophils # Seg Neutrophils # Man Lymphocytes # (Manual) Monocytes # (Manual) Eosinophils # (Manual) PT INR APTT D-Dimer Heparin Anti-Xa Level ABG pH 7.20 L POC ABG pCO2 69.8 H POC ABG pO2 138.9 H 76.1 L ABG pO2 ABG HCO3 ABG Hemoglobin 11.9 L 8.4 L ABG Oxyhemoglobin ABG Sodium 133.1 L 131.2 L ABG Potassium 5.0 H 4.7 H ABG Chloride ABG Glucose 120 H 102 H Carboxyhemoglobin Sodium Potassium Chloride Carbon Dioxide BUN Creatinine Glucose POC Glucose 118 H Lactic Acid Calcium Phosphorus Magnesium Ferritin Direct Bilirubin AST ALT Alkaline Phosphatase Lactate Dehydrogenase Total Creatine Kinase C-Reactive Protein Total Protein Albumin Triglycerides Arterial Blood Glucose 120 H 102 H Arterial Blood Ionized Calcium 4.4 L 4.3 L Urine Creatinine Urine Chloride Vancomycin [place] Coronavirus (PCR) Crossmatch 07/09/20 07/09/20 07/09/20 11:51 17:04 21:00 WBC RBC Hgb Hct MCHC RDW Lymph % (Auto) [place] % (Auto) Lymph # (Auto) [place] # (Auto) Eos # (Auto) Seg Neutrophils % Seg Neuts % (Manual) Lymphocytes % (Manual) Monocytes % (Manual) Nucleated RBC % Seg Neutrophils # Seg Neutrophils # Man Lymphocytes # (Manual) Monocytes # (Manual) Eosinophils # (Manual) PT INR APTT D-Dimer Heparin Anti-Xa Level ABG pH POC ABG pCO2 POC ABG pO2 114.2 H ABG pO2 ABG HCO3 ABG Hemoglobin 7.8 L ABG Oxyhemoglobin ABG Sodium 132.3 L ABG Potassium 4.6 H ABG Chloride ABG Glucose Carboxyhemoglobin Sodium Potassium Chloride Carbon Dioxide BUN Creatinine Glucose POC Glucose 113 H 111 H Lactic Acid Calcium Phosphorus Magnesium Ferritin Direct Bilirubin AST ALT Alkaline Phosphatase Lactate Dehydrogenase Total Creatine Kinase C-Reactive Protein Total Protein Albumin Triglycerides Arterial Blood Glucose Arterial Blood Ionized Calcium 4.4 L Urine Creatinine Urine Chloride Vancomycin Trough Coronavirus (PCR) Crossmatch 07/10/20 07/10/20 07/10/20 03:49 03:55 03:55 WBC 18.1 H RBC 2.37 L Hgb 6.8 L Hct 20.7 L MCHC RDW 16.9 H Lymph % (Auto) [place] % (Auto) Lymph # (Auto) [place] # (Auto) Eos # (Auto) Seg Neutrophils % Seg Neuts % (Manual) 79.0 H Lymphocytes % (Manual) 10.0 L Monocytes % (Manual) Nucleated RBC % 1.0 H Seg Neutrophils # Seg Neutrophils # Man 14.3 H Lymphocytes # (Manual) Monocytes # (Manual) Eosinophils # (Manual) 0.7 H PT INR APTT D-Dimer Heparin Anti-Xa Level ABG pH POC ABG pCO2 POC ABG pO2 ABG pO2 ABG HCO3 ABG Hemoglobin 7.7 L ABG Oxyhemoglobin ABG Sodium 130.3 L ABG Potassium 4.6 H ABG Chloride ABG Glucose Carboxyhemoglobin Sodium 136 L Potassium Chloride 96.0 L Carbon Dioxide BUN 76 H Creatinine 3.6 H Glucose POC Glucose Lactic Acid Calcium 7.4 L Phosphorus Magnesium Ferritin Direct Bilirubin AST ALT Alkaline Phosphatase Lactate Dehydrogenase Total Creatine Kinase C-Reactive Protein Total Protein Albumin Triglycerides Arterial Blood Glucose Arterial Blood Ionized Calcium 4.2 L Urine Creatinine Urine Chloride Vancomycin Trough Coronavirus (PCR) Crossmatch 07/10/20 07/11/20 07/11/20 13:24 04:08 06:52 WBC 26.0 H RBC 2.91 L Hgb 8.2 L Hct 24.8 L MCHC RDW 17.2 H Lymph % (Auto) [place] % (Auto) Lymph # (Auto) [place] # (Auto) Eos # (Auto) Seg Neutrophils % Seg Neuts % (Manual) Lymphocytes % (Manual) 1.0 L Monocytes % (Manual) 11.0 H Nucleated RBC % Seg Neutrophils # Seg Neutrophils # Man 16.9 H Lymphocytes # (Manual) 0.3 L Monocytes # (Manual) 2.9 H Eosinophils # (Manual) 1.0 H PT INR APTT D-Dimer Heparin Anti-Xa Level ABG pH POC ABG pCO2 POC ABG pO2 ABG pO2 ABG HCO3 ABG Hemoglobin 8.5 L ABG Oxyhemoglobin ABG Sodium 130.6 L ABG Potassium 4.9 H ABG Chloride ABG Glucose 105 H Carboxyhemoglobin Sodium Potassium Chloride Carbon Dioxide BUN Creatinine Glucose POC Glucose Lactic Acid Calcium Phosphorus Magnesium Ferritin Direct Bilirubin AST ALT Alkaline Phosphatase Lactate Dehydrogenase Total Creatine Kinase C-Reactive Protein Total Protein Albumin Triglycerides Arterial Blood Glucose 105 H Arterial Blood Ionized Calcium 4.1 L Urine Creatinine Urine Chloride Vancomycin Trough Coronavirus (PCR) Crossmatch See Detail 07/11/20 07/11/20 07/11/20 06:52 08:48 11:39 WBC RBC Hgb Hct MCHC RDW Lymph % (Auto) [place] % (Auto) Lymph # (Auto) [place] # (Auto) Eos # (Auto) Seg Neutrophils % Seg Neuts % (Manual) Lymphocytes % (Manual) Monocytes % (Manual) Nucleated RBC % Seg Neutrophils # Seg Neutrophils # Man Lymphocytes # (Manual) Monocytes # (Manual) Eosinophils # (Manual) PT INR APTT D-Dimer Heparin Anti-Xa Level ABG pH POC ABG pCO2 POC ABG pO2 ABG pO2 ABG HCO3 ABG Hemoglobin ABG Oxyhemoglobin ABG Sodium ABG Potassium ABG Chloride ABG Glucose Carboxyhemoglobin Sodium 133 L 134 L Potassium 5.3 H Chloride 93.5 L 94.8 L Carbon Dioxide BUN 101 H 99 H Creatinine 4.5 H 4.6 H Glucose 102 H POC Glucose 116 H Lactic Acid Calcium 7.8 L 7.6 L Phosphorus Magnesium Ferritin Direct Bilirubin AST ALT Alkaline Phosphatase Lactate Dehydrogenase Total Creatine Kinase C-Reactive Protein Total Protein Albumin Triglycerides Arterial Blood Glucose Arterial Blood Ionized Calcium Urine Creatinine Urine Chloride Vancomycin Trough Coronavirus (PCR) Crossmatch 07/11/20 07/12/20 07/12/20 17:23 00:04 03:20 WBC RBC Hgb Hct MCHC RDW Lymph % (Auto) [place] % (Auto) Lymph # (Auto) [place] # (Auto) Eos # (Auto) Seg Neutrophils % Seg Neuts % (Manual) Lymphocytes % (Manual) Monocytes % (Manual) Nucleated RBC % Seg Neutrophils # Seg Neutrophils # Man Lymphocytes # (Manual) Monocytes # (Manual) Eosinophils # (Manual) PT INR APTT D-Dimer Heparin Anti-Xa Level ABG pH POC ABG pCO2 49.1 H POC ABG pO2 130.3 H ABG pO2 ABG HCO3 ABG Hemoglobin 8.7 L ABG Oxyhemoglobin ABG Sodium 135.2 L ABG Potassium 4.7 H ABG Chloride ABG Glucose 128 H Carboxyhemoglobin Sodium Potassium Chloride Carbon Dioxide BUN Creatinine Glucose POC Glucose 142 H 113 H Lactic Acid Calcium Phosphorus Magnesium Ferritin Direct Bilirubin AST ALT Alkaline Phosphatase Lactate Dehydrogenase Total Creatine Kinase C-Reactive Protein Total Protein Albumin Triglycerides Arterial Blood Glucose 128 H Arterial Blood Ionized Calcium 4.4 L Urine Creatinine Urine Chloride Vancomycin Trough Coronavirus (PCR) Crossmatch 07/12/20 07/12/20 07/12/20 03:40 03:40 04:00 WBC 24.3 H RBC 2.83 L Hgb 8.0 L Hct 24.9 L MCHC RDW 17.7 H Lymph % (Auto) 5.6 L [place] % (Auto) 7.4 H Lymph # (Auto) [place] # (Auto) 1.8 H Eos # (Auto) 0.7 H Seg Neutrophils % 83.9 H Seg Neuts % (Manual) Lymphocytes % (Manual) Monocytes % (Manual) Nucleated RBC % Seg Neutrophils # 20.4 H Seg Neutrophils # Man Lymphocytes # (Manual) Monocytes # (Manual) Eosinophils # (Manual) PT INR APTT D-Dimer Heparin Anti-Xa Level ABG pH POC ABG pCO2 POC ABG pO2 ABG pO2 ABG HCO3 ABG Hemoglobin ABG Oxyhemoglobin ABG Sodium ABG Potassium ABG Chloride ABG Glucose Carboxyhemoglobin Sodium 134 L Potassium Chloride 95.5 L Carbon Dioxide BUN 79 H Creatinine 3.7 H Glucose 127 H POC Glucose Lactic Acid Calcium 7.8 L Phosphorus Magnesium Ferritin Direct Bilirubin AST ALT Alkaline Phosphatase Lactate Dehydrogenase Total Creatine Kinase C-Reactive Protein Total Protein Albumin Triglycerides 246 H Arterial Blood Glucose Arterial Blood Ionized Calcium Urine Creatinine Urine Chloride Vancomycin Trough Coronavirus (PCR) Crossmatch 07/12/20 07/12/20 07/12/20 05:48 11:50 17:29 WBC RBC Hgb Hct MCHC RDW Lymph % (Auto) [place] % (Auto) Lymph # (Auto) [place] # (Auto) Eos # (Auto) Seg Neutrophils % Seg Neuts % (Manual) Lymphocytes % (Manual) Monocytes % (Manual) Nucleated RBC % Seg Neutrophils # Seg Neutrophils # Man Lymphocytes # (Manual) Monocytes # (Manual) Eosinophils # (Manual) PT INR APTT D-Dimer Heparin Anti-Xa Level ABG pH POC ABG pCO2 POC ABG pO2 ABG pO2 ABG HCO3 ABG Hemoglobin ABG Oxyhemoglobin ABG Sodium ABG Potassium ABG Chloride ABG Glucose Carboxyhemoglobin Sodium Potassium Chloride Carbon Dioxide BUN Creatinine Glucose POC Glucose 136 H 113 H 110 H Lactic Acid Calcium Phosphorus Magnesium Ferritin Direct Bilirubin AST ALT Alkaline Phosphatase Lactate Dehydrogenase Total Creatine Kinase C-Reactive Protein Total Protein Albumin Triglycerides Arterial Blood Glucose Arterial Blood Ionized Calcium Urine Creatinine Urine Chloride Vancomycin Trough Coronavirus (PCR) Crossmatch 07/12/20 07/13/20 07/13/20 23:43 03:11 06:59 WBC RBC Hgb Hct MCHC RDW Lymph % (Auto) [place] % (Auto) Lymph # (Auto) [place] # (Auto) Eos # (Auto) Seg Neutrophils % Seg Neuts % (Manual) Lymphocytes % (Manual) Monocytes % (Manual) Nucleated RBC % Seg Neutrophils # Seg Neutrophils # Man Lymphocytes # (Manual) Monocytes # (Manual) Eosinophils # (Manual) PT INR APTT D-Dimer Heparin Anti-Xa Level ABG pH POC ABG pCO2 49.0 H POC ABG pO2 69.6 L ABG pO2 ABG HCO3 ABG Hemoglobin 8.5 L ABG Oxyhemoglobin 90.5 L ABG Sodium 133.6 L ABG Potassium 5.1 H ABG Chloride ABG Glucose 104 H Carboxyhemoglobin Sodium 133 L Potassium 5.7 H Chloride 96.3 L Carbon Dioxide 20 L D BUN 102 H Creatinine 4.4 H Glucose 101 H POC Glucose 120 H Lactic Acid Calcium 7.9 L Phosphorus Magnesium Ferritin Direct Bilirubin AST 61 H ALT 85 H Alkaline Phosphatase 144 H Lactate Dehydrogenase Total Creatine Kinase C-Reactive Protein Total Protein 5.4 L Albumin 2.0 L Triglycerides Arterial Blood Glucose 104 H Arterial Blood Ionized Calcium 4.3 L Urine Creatinine Urine Chloride Vancomycin Trough Coronavirus (PCR) Crossmatch 07/13/20 07/13/20 07/13/20 08:48 12:14 15:12 WBC 27.5 H RBC 3.03 L Hgb 8.7 L Hct 27.0 L MCHC RDW 18.0 H Lymph % (Auto) [place] % (Auto) Lymph # (Auto) [place] # (Auto) Eos # (Auto) Seg Neutrophils % Seg Neuts % (Manual) Lymphocytes % (Manual) Monocytes % (Manual) Nucleated RBC % Seg Neutrophils # Seg Neutrophils # Man Lymphocytes # (Manual) Monocytes # (Manual) Eosinophils # (Manual) PT INR APTT D-Dimer Heparin Anti-Xa Level ABG pH POC ABG pCO2 POC ABG pO2 ABG pO2 ABG HCO3 ABG Hemoglobin ABG Oxyhemoglobin ABG Sodium ABG Potassium ABG Chloride ABG Glucose Carboxyhemoglobin Sodium Potassium 5.5 H Chloride Carbon Dioxide BUN 88 H Creatinine 3.8 H Glucose 133 H POC Glucose 134 H Lactic Acid Calcium 7.5 L Phosphorus Magnesium Ferritin Direct Bilirubin AST ALT Alkaline Phosphatase Lactate Dehydrogenase Total Creatine Kinase C-Reactive Protein Total Protein Albumin Triglycerides Arterial Blood Glucose Arterial Blood Ionized Calcium Urine Creatinine Urine Chloride Vancomycin Trough Coronavirus (PCR) Crossmatch 07/13/20 07/13/20 07/13/20 16:46 16:47 18:46 WBC RBC Hgb 7.4 L Hct 22.1 L MCHC RDW Lymph % (Auto) [place] % (Auto) Lymph # (Auto) [place] # (Auto) Eos # (Auto) Seg Neutrophils % Seg Neuts % (Manual) Lymphocytes % (Manual) Monocytes % (Manual) Nucleated RBC % Seg Neutrophils # Seg Neutrophils # Man Lymphocytes # (Manual) Monocytes # (Manual) Eosinophils # (Manual) PT INR APTT D-Dimer Heparin Anti-Xa Level ABG pH POC ABG pCO2 POC ABG pO2 ABG pO2 ABG HCO3 ABG Hemoglobin ABG Oxyhemoglobin ABG Sodium ABG Potassium ABG Chloride ABG Glucose Carboxyhemoglobin Sodium Potassium Chloride Carbon Dioxide BUN Creatinine Glucose POC Glucose 118 H Lactic Acid Calcium Phosphorus Magnesium Ferritin Direct Bilirubin AST ALT Alkaline Phosphatase Lactate Dehydrogenase Total Creatine Kinase C-Reactive Protein Total Protein Albumin Triglycerides Arterial Blood Glucose Arterial Blood Ionized Calcium Urine Creatinine Urine Chloride Vancomycin Trough Coronavirus (PCR) Crossmatch See Detail 07/13/20 07/14/20 07/14/20 23:34 04:25 12:21 WBC RBC Hgb Hct MCHC RDW Lymph % (Auto) [place] % (Auto) Lymph # (Auto) [place] # (Auto) Eos # (Auto) Seg Neutrophils % Seg Neuts % (Manual) Lymphocytes % (Manual) Monocytes % (Manual) Nucleated RBC % Seg Neutrophils # Seg Neutrophils # Man Lymphocytes # (Manual) Monocytes # (Manual) Eosinophils # (Manual) PT INR APTT D-Dimer Heparin Anti-Xa Level ABG pH POC ABG pCO2 POC ABG pO2 ABG pO2 ABG HCO3 ABG Hemoglobin 8.9 L ABG Oxyhemoglobin ABG Sodium 133.1 L ABG Potassium 4.7 H ABG Chloride ABG Glucose 113 H Carboxyhemoglobin Sodium Potassium Chloride Carbon Dioxide BUN Creatinine Glucose POC Glucose 109 H 109 H Lactic Acid Calcium Phosphorus Magnesium Ferritin Direct Bilirubin AST ALT Alkaline Phosphatase Lactate Dehydrogenase Total Creatine Kinase C-Reactive Protein Total Protein Albumin Triglycerides Arterial Blood Glucose 113 H Arterial Blood Ionized Calcium 4.4 L Urine Creatinine Urine Chloride Vancomycin Trough Coronavirus (PCR) Crossmatch 03/04/21 03/04/21 03/04/21 16:44 16:44 20:20 WBC 30.1 H RBC 2.60 L Hgb 7.4 L 5.6 L* Hct 23.0 L 18.1 L* MCHC RDW 18.0 H Lymph % (Auto) [place] % (Auto) Lymph # (Auto) [place] # (Auto) Eos # (Auto) Seg Neutrophils % Seg Neuts % (Manual) 78.0 H Lymphocytes % (Manual) 5.0 L Monocytes % (Manual) Nucleated RBC % Seg Neutrophils # Seg Neutrophils # Man 23.5 H Lymphocytes # (Manual) Monocytes # (Manual) 0.9 H Eosinophils # (Manual) PT 15.6 H INR 1.26 H APTT D-Dimer Heparin Anti-Xa Level ABG pH POC ABG pCO2 POC ABG pO2 ABG pO2 ABG HCO3 ABG Hemoglobin ABG Oxyhemoglobin ABG Sodium ABG Potassium ABG Chloride ABG Glucose Carboxyhemoglobin Sodium Potassium Chloride Carbon Dioxide BUN Creatinine Glucose POC Glucose Lactic Acid Calcium Phosphorus Magnesium Ferritin Direct Bilirubin AST ALT Alkaline Phosphatase Lactate Dehydrogenase Total Creatine Kinase C-Reactive Protein Total Protein Albumin Triglycerides Arterial Blood Glucose Arterial Blood Ionized Calcium Urine Creatinine Urine Chloride Vancomycin Trough Coronavirus (PCR) Crossmatch 07/14/20 07/14/20 07/15/20 21:19 23:45 04:13 WBC RBC Hgb Hct MCHC RDW Lymph % (Auto) [place] % (Auto) Lymph # (Auto) [place] # (Auto) Eos # (Auto) Seg Neutrophils % Seg Neuts % (Manual) Lymphocytes % (Manual) Monocytes % (Manual) Nucleated RBC % Seg Neutrophils # Seg Neutrophils # Man Lymphocytes # (Manual) Monocytes # (Manual) Eosinophils # (Manual) PT INR APTT D-Dimer Heparin Anti-Xa Level ABG pH POC ABG pCO2 POC ABG pO2 ABG pO2 ABG HCO3 ABG Hemoglobin 5.8 L 6.0 L ABG Oxyhemoglobin 93.8 L ABG Sodium 132.2 L 130.3 L ABG Potassium 5.5 H 5.8 H ABG Chloride ABG Glucose 118 H 122 H Carboxyhemoglobin Sodium Potassium Chloride Carbon Dioxide BUN Creatinine Glucose POC Glucose 126 H Lactic Acid Calcium Phosphorus Magnesium Ferritin Direct Bilirubin AST ALT Alkaline Phosphatase Lactate Dehydrogenase Total Creatine Kinase C-Reactive Protein Total Protein Albumin Triglycerides Arterial Blood Glucose 118 H 122 H Arterial Blood Ionized Calcium 4.3 L 4.2 L Urine Creatinine Urine Chloride Vancomycin Trough Coronavirus (PCR) Crossmatch Chest x-ray: pending Allied health notes reviewed: nursing
[2020-07-15] MEDS: PANTOPRAZOLE 80 MG in SODIUM CHLORIDE 0.9% 100 ML IV SCH ×2 (07:56→15:39)
[2020-07-15] MEDS: fentaNYL DRIP Premix 2,000 MCG/100 ML BAG IV SCH ×3 (07:57→22:56)
[2020-07-15] MEDS ORDERED: VANCOMYCIN PHARMACY TO DOSE IV SCH (08:00)
[2020-07-15] MEDS ORDERED: SODIUM CHLORIDE 0.9% 500 ML 500 ML IV ONE ×2 (08:00→15:00)
[2020-07-15] MEDS: SODIUM BICARBONATE 650 MG TAB PO SCH ×3 (08:57→20:00)
[2020-07-15] MEDS: CEFEPIME/NS 2 GM/100 ML 2 GM/100 ML BAG IV SCH (08:57)
[2020-07-15] MEDS: DOCUSATE SODIUM 100 MG/10 ML ORAL LIQD FEEDTUBE SCH ×2 (08:59→22:00)
[2020-07-15] MEDS ORDERED: VANCOMYCIN 2,000 MG in SODIUM CHLORIDE 0.9% 500 ML 500 ML IV ONE (09:00)
[2020-07-15] MEDS: ZINC SULFATE 220 MG CAP PO SCH ×2 (09:00→23:32)
[2020-07-15] MEDS: ASCORBIC ACID 250 MG TAB PO SCH ×2 (09:00→23:12)
[2020-07-15] MEDS: QUEtiapine 200 MG TAB PO SCH ×2 (09:00→23:32)
[2020-07-15] MEDS: CHOLECALCIFEROL (VIT D3) 1000 UNIT (25 mcg) TAB PO SCH (09:00)
[2020-07-15] MEDS: POLYETHYLENE GLYCOL 3350 17 GM POWDER PO SCH (09:00)
[2020-07-15 09:06] LABS: Calcium 7.6 mg/dL (8.4-10.2)
[2020-07-15 09:06] LABS: Hematocrit 21.5 % (35.5-45.6); Hemoglobin 7.1 gm/dl (11.8-15.2); Mean Corpuscular HGB Conc 33 % (32-34); Mean Corpuscular Volume 89 fl (84-94); Platelet Count 312 K/mm3 (140-440); Red Blood Count 2.42 M/mm3 (3.65-5.03); Red Cell Distribution Width 16.5 % (13.2-15.2)
--- NOTE | 2020-07-15 09:20 | Progress Note ---
Assessment and Plan Pt remains intubated and sedated, receiving blood transfusions for severe anemia. Telemetry reviewed: Afib, HR 120-130. Continue Amiodarone IV. Continue to hold AC due to severe anemia. Electrolyte management per nephrology. Pt was seen in conjunction with Dr Chavis, who agrees with this assessment and plan of care. - Patient Problems (1) Acute respiratory failure with hypoxia Current Visit: Yes Status: Acute (2) Sepsis Current Visit: Yes Status: Acute Qualifiers: Severe sepsis acute organ dysfunction type: acute respiratory failure Sev ere sepsis shock status: with septic shock (3) Atrial fibrillation with rapid ventricular response Current Visit: Yes Status: Acute (4) Acute renal failure Current Visit: Yes Status: Acute (5) Pneumonia due to COVID-19 virus Current Visit: Yes Status: Acute (6) Elevated LFTs Current Visit: Yes Status: Acute (7) Hyperkalemia Current Visit: Yes Status: Acute (8) Anemia Current Visit: Yes Status: Acute Subjective Date of service: 07/15/20 Principal diagnosis: ARF; Septic Shock; COVID-19 PNA; Atrial fibrillation; Obesity Interval history: Pt is lying supine, sedated, remains intubated. Telemetry reviewed: Afib HR 120-130. Objective Last Vital Signs Temp 99.3 F 07/15/20 07:52 Pulse 123 H 07/15/20 09:00 Resp 36 H 07/15/20 09:00 BP 119/59 07/15/20 09:00 Pulse Ox 94 07/15/20 09:00 - Physical Examination General: Other (intubated, lethargic) Neck: Positive: neck supple Cardiac: Positive: irregularly irregular, S1/S2 Lungs: Positive: Ventilated Respirations Neuro: Positive: Other (intubated, lethargic) Abdomen: Positive: Soft Skin: Negative: Rash, Wound Extremities: Present: upper extr. pulses, lower extr. pulses, +1 Edema - Labs and Meds Coagulation 07/14/20 Range/Units 16:44 PT 15.6 H (12.2-14.9) Sec. INR 1.26 H (0.87-1.13) CBC 07/14/20 07/14/20 Range/Units 16:44 20:20 WBC 30.1 H (4.5-11.0) K/mm3 RBC 2.60 L (3.65-5.03) M/mm3 Hgb 7.4 L 5.6 L* (11.8-15.2) gm/dl Hct 23.0 L 18.1 L* (35.5-45.6) % Plt Count 356 (140-440) K/mm3 Comprehensive Metabolic Panel 07/15/20 Range/Units 08:38 Sodium 131 L (137-145) mmol/L Potassium 6.0 H (3.6-5.0) mmol/L Chloride 94.6 L (98-107) mmol/L Carbon Dioxide 20 L (22-30) mmol/L Glucose 123 H (75-100) mg/dL Calcium 7.6 L (8.4-10.2) mg/dL - Imaging and Cardiology EKG: report reviewed, image reviewed Echo: report reviewed (TDS, EF 55-60%. ) - Telemetry EKG Rhythm: Atrial Flutter - EKG Sinus rhythms and dysrhythmias: sinus tachycardia - Allied health notes Allied health notes reviewed: nursing
[2020-07-15 09:24] LABS: INR 1.46 (0.87-1.13)
[2020-07-15] MEDS ORDERED: INSULIN REGULAR, HUMAN 100 UNITS/1 ML SUB-Q ONE (10:59)
[2020-07-15] MEDS ORDERED: DEXTROSE 50% IN WATER (25GM) 50 ML SYRINGE IV ONE (10:59)
[2020-07-15] MEDS ORDERED: SODIUM BICARB 8.4% 50 MEQ/50 ML SYRINGE IV ONE (10:59)
[2020-07-15] MEDS: AMIODARONE 900 MG in DEXTROSE 5% IN WATER 482 ML IV SCH (11:10)
[2020-07-15 12:19] LABS: Total Cells Counted 100
[2020-07-15 12:21] LABS: Macrocytosis Rare; Poikilocytosis Few
[2020-07-15 12:22] LABS: Giant Platelets Rare
[2020-07-15] MEDS ORDERED: metroNIDAZOLE/NS 500 MG/100 ML 500 MG/100 ML BAG IV SCH (14:00)
--- NOTE | 2020-07-15 14:15 | Progress Note ---
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 Kidney function worsened and patient developed hyperkalemia, refractory acidosis and worsening azotemia, no signs of significant renal recovery, cont HD on MWF schedule with prn vasopressor support to maintain MAP > 65mmhg. Given persistent hyperkalemia and increased azotemia in the setting of GI bleed and multiple PRBC transfusion will arrange another HD for Sat AM for solute clearance and correction of hyperkalemia. discussed with RN (2) Severe sepsis with septic shock Current Visit: Yes Status: Acute Plan to address problem: Continue antibiotics per infectious disease bath design sales consultant appropriately adjusted to the degree of renal function. Patient is on intermittent vasopressors to maintain MAP > 65mmHg . (3) Hyperkalemia Current Visit: Yes Status: Acute Plan to address problem: to be corrected with dialysis. cont 2g K renal diet (4) Metabolic acidosis Current Visit: Yes Status: Acute Plan to address problem: Acidosis corrected with dialysis. (5) Acute respiratory failure with hypoxia Current Visit: Yes Status: Acute Plan to address problem: Continue respiratory management by pulmonary (6) Pneumonia due to COVID-19 virus Current Visit: Yes Status: Acute Plan to address problem: IV Dexamethasone Supplemental oxygen/Respiratory support as needed Proning as tolerated Remdesevir contra-indicated due to Kidney failure Prophylactic anticoagulation Trend inflammatory markers to assess disease progression and prognosis (7) Anemia Current Visit: Yes Status: Acute Qualifiers: Other causes of anemia: acute posthemorrhagic Plan to address problem: with active rectal bleeding, initiated on protonix gtt, GI consulted for possible emergent endoscopy. Cont PRBC transfusions to maintain Hb > 7. Subjective Date of service: 07/15/20 Principal diagnosis: ARF; Septic Shock; COVID-19 PNA; Atrial fibrillation; Obesity Interval history: Patient was not examined today due to the COVID-19 status to limit exposure of the consulting floor care technician and also for PPE preservation. I reviewed multidisciplinary notes and discussed with staff and physicians as needed. Patient remains on vent, sedated. pt with active GI/rectal bleeding, requiring multiple PRBC transfusions. Currently undergoing HD on vasopressor support with vasopressin and levophed at 6mcg/min Objective - Exam Narrative Exam: exam deferred d/t PPE preservation - Vital Signs Vital signs: Vital Signs - 12hr 07/15/20 07/15/20 07/15/20 02:15 02:30 02:31 Temperature 100.0 F H Pulse Rate 121 H 114 H 115 H Pulse Rate [ From Monitor] Respiratory 19 20 25 H Rate Blood Pressure 118/51 115/51 129/64 O2 Sat by Pulse 98 98 98 Oximetry O2 Sat by Pulse Oximetry [ Anterior Bilateral Throughout] 07/15/20 07/15/20 07/15/20 02:45 03:00 03:01 Temperature 100.0 F H Pulse Rate 116 H 110 H 115 H Pulse Rate [ From Monitor] Respiratory 19 20 25 H Rate Blood Pressure 108/50 114/58 129/64 O2 Sat by Pulse 98 98 98 Oximetry O2 Sat by Pulse Oximetry [ Anterior Bilateral Throughout] 07/15/20 07/15/20 07/15/20 03:15 03:30 03:31 Temperature 100.0 F H Pulse Rate 117 H 111 H 115 H Pulse Rate [ From Monitor] Respiratory 21 23 25 H Rate Blood Pressure 112/57 126/63 129/64 O2 Sat by Pulse 99 100 98 Oximetry O2 Sat by Pulse Oximetry [ Anterior Bilateral Throughout] 07/15/20 07/15/20 07/15/20 03:40 03:45 04:01 Temperature 100.0 F H 100.0 F H Pulse Rate 114 H 115 H Pulse Rate [ From Monitor] Respiratory 23 25 H Rate Blood Pressure 134/67 129/64 O2 Sat by Pulse 100 98 Oximetry O2 Sat by Pulse Oximetry [ Anterior Bilateral Throughout] 07/15/20 07/15/20 07/15/20 04:03 04:15 04:30 Temperature Pulse Rate 112 H 121 H 121 H Pulse Rate [ 113 H From Monitor] Respiratory 28 H 25 H Rate Blood Pressure 141/59 145/73 O2 Sat by Pulse 100 100 100 Oximetry O2 Sat by Pulse Oximetry [ Anterior Bilateral Throughout] 07/15/20 07/15/20 07/15/20 04:31 04:45 05:00 Temperature 100.0 F H Pulse Rate 115 H 118 H 115 H Pulse Rate [ From Monitor] Respiratory 25 H 28 H 25 H Rate Blood Pressure 129/64 129/62 129/64 O2 Sat by Pulse 98 99 98 Oximetry O2 Sat by Pulse Oximetry [ Anterior Bilateral Throughout] 07/15/20 07/15/20 07/15/20 05:01 05:07 05:15 Temperature 100.0 F H 100.0 F H Pulse Rate 115 H 115 H 109 H Pulse Rate [ From Monitor] Respiratory 25 H 25 H 22 Rate Blood Pressure 129/64 129/64 138/61 O2 Sat by Pulse 98 98 98 Oximetry O2 Sat by Pulse Oximetry [ Anterior Bilateral Throughout] 07/15/20 07/15/20 07/15/20 05:30 05:35 05:45 Temperature 100.0 F H Pulse Rate 114 H 109 H 114 H Pulse Rate [ From Monitor] Respiratory 23 22 22 Rate Blood Pressure 134/61 138/61 126/62 O2 Sat by Pulse 98 98 98 Oximetry O2 Sat by Pulse Oximetry [ Anterior Bilateral Throughout] 07/15/20 07/15/20 07/15/20 06:00 06:05 06:15 Temperature 100.0 F H Pulse Rate 128 H 128 H 116 H Pulse Rate [ From Monitor] Respiratory 23 23 22 Rate Blood Pressure 130/63 130/63 129/62 O2 Sat by Pulse 98 98 98 Oximetry O2 Sat by Pulse Oximetry [ Anterior Bilateral Throughout] 07/15/20 07/15/20 07/15/20 06:30 06:45 07:00 Temperature Pulse Rate 109 H 112 H 111 H Pulse Rate [ From Monitor] Respiratory 24 25 H 21 Rate Blood Pressure 137/64 131/68 129/69 O2 Sat by Pulse 97 98 98 Oximetry O2 Sat by Pulse Oximetry [ Anterior Bilateral Throughout] 07/15/20 07/15/20 07/15/20 07:15 07:30 07:45 Temperature Pulse Rate 108 H 109 H 120 H Pulse Rate [ From Monitor] Respiratory 21 23 31 H Rate Blood Pressure 129/65 130/61 136/62 O2 Sat by Pulse 98 98 97 Oximetry O2 Sat by Pulse Oximetry [ Anterior Bilateral Throughout] 07/15/20 07/15/20 07/15/20 07:52 08:00 08:01 Temperature 99.3 F Pulse Rate 127 H 132 H Pulse Rate [ 127 H From Monitor] Respiratory 36 H 46 H Rate Blood Pressure 157/74 O2 Sat by Pulse 94 94 Oximetry O2 Sat by Pulse Oximetry [ Anterior Bilateral Throughout] 07/15/20 07/15/20 07/15/20 08:05 08:15 08:30 Temperature Pulse Rate 133 H 138 H 133 H Pulse Rate [ From Monitor] Respiratory 31 H 27 H Rate Blood Pressure 157/74 157/74 132/51 O2 Sat by Pulse 95 93 92 Oximetry O2 Sat by Pulse Oximetry [ Anterior Bilateral Throughout] 07/15/20 07/15/20 07/15/20 08:41 08:51 09:00 Temperature Pulse Rate 129 H 122 H 123 H Pulse Rate [ From Monitor] Respiratory 30 H 29 H 36 H Rate Blood Pressure 132/51 109/52 119/59 O2 Sat by Pulse 93 93 94 Oximetry O2 Sat by Pulse Oximetry [ Anterior Bilateral Throughout] 07/15/20 07/15/20 07/15/20 09:11 09:21 09:31 Temperature Pulse Rate 124 H 121 H 126 H Pulse Rate [ From Monitor] Respiratory 37 H 27 H 30 H Rate Blood Pressure 119/59 108/59 117/62 O2 Sat by Pulse 96 95 95 Oximetry O2 Sat by Pulse Oximetry [ Anterior Bilateral Throughout] 07/15/20 07/15/20 07/15/20 09:41 10:01 10:15 Temperature Pulse Rate 134 H 130 H 114 H Pulse Rate [ From Monitor] Respiratory 33 H 32 H Rate Blood Pressure 117/62 118/54 118/54 O2 Sat by Pulse 93 90 91 Oximetry O2 Sat by Pulse Oximetry [ Anterior Bilateral Throughout] 07/15/20 07/15/20 07/15/20 10:31 10:45 11:01 Temperature Pulse Rate 118 H 114 H 125 H Pulse Rate [ From Monitor] Respiratory 30 H 28 H 37 H Rate Blood Pressure 118/54 118/54 118/54 O2 Sat by Pulse 94 96 95 Oximetry O2 Sat by Pulse Oximetry [ Anterior Bilateral Throughout] 07/15/20 07/15/20 07/15/20 11:15 11:31 11:45 Temperature Pulse Rate 114 H 134 H 109 H Pulse Rate [ From Monitor] Respiratory 25 H 38 H 45 H Rate Blood Pressure 118/54 118/54 118/54 O2 Sat by Pulse 96 96 95 Oximetry O2 Sat by Pulse Oximetry [ Anterior Bilateral Throughout] 07/15/20 07/15/20 07/15/20 11:48 12:00 12:09 Temperature 98.6 F Pulse Rate 110 H 126 H Pulse Rate [ 114 H From Monitor] Respiratory 36 H Rate Blood Pressure 109/52 111/58 O2 Sat by Pulse 93 93 Oximetry O2 Sat by Pulse Oximetry [ Anterior Bilateral Throughout] 07/15/20 07/15/20 07/15/20 12:15 12:31 12:41 Temperature Pulse Rate 124 H 126 H 118 H Pulse Rate [ From Monitor] Respiratory 42 H 30 H 27 H Rate Blood Pressure 116/60 116/52 116/52 O2 Sat by Pulse 93 94 95 Oximetry O2 Sat by Pulse Oximetry [ Anterior Bilateral Throughout] 07/15/20 07/15/20 07/15/20 12:50 13:00 13:15 Temperature 98.9 F Pulse Rate 121 H 127 H 124 H Pulse Rate [ From Monitor] Respiratory 29 H 27 H 31 H Rate Blood Pressure 114/49 121/58 120/64 O2 Sat by Pulse 95 96 96 Oximetry O2 Sat by Pulse 95 Oximetry [ Anterior Bilateral Throughout] 07/15/20 07/15/20 07/15/20 13:30 13:45 14:01 Temperature Pulse Rate 120 H 126 H 122 H Pulse Rate [ From Monitor] Respiratory 28 H Rate Blood Pressure 119/59 122/43 100/61 O2 Sat by Pulse 97 Oximetry O2 Sat by Pulse Oximetry [ Anterior Bilateral Throughout] - Lab 07/15/20 08:21 07/15/20 08:38 Most recent lab results ABG pH 7.409 (7.320-7.450) 07/15/20 04:13 ABG pCO2 56.4 mm Hg 07/05/20 04:30 ABG pO2 151.9 mm Hg (80.0-90.0) H 07/05/20 04:30 ABG HCO3 26.8 mmol/L (20.0-26.0) H 07/05/20 04:30 ABG O2 Saturation 98.7 % (95.0-99.0) 07/05/20 04:30 Calcium 7.6 mg/dL (8.4-10.2) L 07/15/20 08:38 Phosphorus 9.40 mg/dL (2.5-4.5) H 06/30/20 03:50 Magnesium 2.70 mg/dL (1.7-2.3) H 06/18/20 20:33 Urine Creatinine 192.4 mg/dL (0.1-20.0) H 06/18/20 15:00 Urine Sodium 28 mmol/L 06/18/20 15:00 Medications & Allergies - Medications Allergies/Adverse Reactions: Allergies No Known Allergies Allergy (Unverified 06/17/20 14:24) Home Medications: Home Medications Medication Instructions Recorded Confirmed Last Taken Type Losartan/Hydrochlorothiazide 1 each PO QDAY 06/19/20 06/19/20 Unknown History [Losartan-Hctz 100-25 mg Tab] amLODIPine [Norvasc] 5 mg PO DAILY 06/19/20 06/19/20 Unknown History Active Medications: Generic Name Dose Route Start Last Admin Trade Name Freq PRN Reason Stop Dose Admin Acetaminophen 650 mg 06/17/20 14:17 07/03/20 09:16 Acetaminophen 325 Mg Tab PO 650 mg Q4H PRN Administration Pain MILD(1-3)/Fever >100.5/ROBERTS Lipase/Protease/Amylase 1 each 06/19/20 12:15 Lipase 10,500/Protease 25,000/Amylase 43,750 (Units) Dr Kulkarni FEEDTUBE PRN PRN For Clogged Feeding Tube Ascorbic Acid 250 mg 06/17/20 22:00 07/15/20 09:00 Ascorbic Acid 250 Mg Tab PO Not Given BID [facility] Cholecalciferol 1,000 unit 06/18/20 10:00 07/15/20 09:00 Cholecalciferol (Vit D3) 1000 Unit (25 Mcg) Tab PO Not Given DAILY [facility] Docusate Sodium 100 mg 06/23/20 15:00 07/15/20 08:59 Docusate Sodium 100 Mg/10 Ml Oral Liqd FEEDTUBE Not Given BID CONNOR Fentanyl 50 mcg 06/18/20 01:02 07/09/20 00:20 Fentanyl 100 Mcg/2 Ml Inj IV 50 mcg Q10MIN PRN Administration ANALGESIA Heparin Sodium (Porcine) 5,000 unit 06/22/20 12:53 06/30/20 13:36 Heparin 10,000 Unit/1 Ml Vial IV 5,000 unit PAM PRN Administration hemodialysis Hydrophilic Ointment 1 applic 06/17/20 22:52 07/12/20 20:22 Lip Therapy Vaseline TP 1 applic Q2HR PRN Administration Dry Lips Propofol 1,000 mg in 100 mls @ 3.402 mls/hr 06/18/20 01:00 07/15/20 13:04 Diprivan 10 Mg/Ml IV 10 mcg/kg/min TITR CONNOR 6.804 mls/hr Administration Protocol 5 MCG/KG/MIN Fentanyl Citrate 2,000 mcg in 100 mls @ 8 mls/hr 06/18/20 02:00 07/15/20 13:02 Fentanyl Drip Premix IV 2 mcg/kg/hr TITR CONNOR 16 mls/hr Titration Protocol 1 MCG/KG/HR Sodium Chloride 500 mls @ 1 mls/hr 06/18/20 09:38 06/19/20 21:37 Nacl 0.9% 500 Ml IV 0 mls/hr DIRECT PRN Infusion ARTERIAL LINE FLUSH Norepinephrine 4 mg in 250 mls @ 7.5 mls/hr 07/08/20 02:06 07/15/20 13:03 Levophed Drip 4 Mg/Ns 250 Ml IV 8 mcg/min TITR CONNOR 30 mls/hr Administration Protocol 2 MCG/MIN Vasopressin 20 unit/ Sodium 101 mls @ 9.09 mls/hr 07/11/20 11:00 07/15/20 04:40 Chloride IV 0.03 units/min TITR CONNOR 9.09 mls/hr Administration Protocol 0.03 UNITS/MIN Sodium Chloride 100 mls @ 999 mls/hr 07/12/20 10:00 Nacl 0.9% IV PAM PRN Hypotension Amiodarone HCl 900 mg/ 500 mls @ 33.333 mls/hr 07/14/20 12:30 07/15/20 11:10 Dextrose IV 0.5 mg/min DIRECT CONNOR 16.667 mls/hr Administration Protocol 1 MG/MIN Pantoprazole Sodium 80 mg/ 100 mls @ 10 mls/hr 07/15/20 08:00 07/15/20 07:56 Sodium Chloride IV 8 mg/hr DIRECT CONNOR 10 mls/hr Administration 8 MG/HR Cefepime HCl 2 gm in 100 mls @ 200 mls/hr 07/15/20 08:00 07/15/20 08:57 Cefepime/Ns 2 Gm/100 Ml IV 200 mls/hr Q24H [facility] Administration Protocol Metronidazole 500 mg in 100 mls @ 100 mls/hr 07/15/20 14:00 Flagyl 500 Mg/100 Ml IV Q8H [facility] Protocol Sodium Chloride 500 mls @ 0 mls/hr 07/15/20 15:00 Nacl 0.9% 500 Ml IV 07/15/20 15:01 ONCE ONE As Directed Insulin Human Regular 0 units 06/18/20 12:00 07/15/20 13:50 Insulin Regular, Human 100 Units/1 Ml SUB-Q Not Given Q6HR [facility] Protocol Multi-Ingred Cream/Lotion/Oil/Oint 1 applic 06/17/20 22:52 07/12/20 20:22 Mineral Oil/Petrolatum, White Ophth Oint 3.5 Gm OU 1 applic Q4HR PRN Administration Dry Eye(s) Ondansetron HCl 4 mg 06/17/20 14:17 Ondansetron 4 Mg/2 Ml Inj IV Q8H PRN Nausea And Vomiting Polyethylene Glycol 17 gm 06/23/20 15:00 07/15/20 09:00 Polyethylene Glycol 3350 17 Gm Powder PO Not Given QDAY [facility] Quetiapine Fumarate 200 mg 06/28/20 13:00 07/15/20 09:00 Quetiapine 200 Mg Tab PO Not Given BID [facility]NOR Simple Syrup 15 ml 06/19/20 12:15 Simple Syrup 15 Ml FEEDTUBE PRN PRN Hypoglycemia Simple Syrup 30 ml 06/19/20 12:15 Simple Syrup 15 Ml FEEDTUBE PRN PRN Hypoglycemia Sodium Bicarbonate 325 mg 06/19/20 12:15 07/11/20 20:00 Sodium Bicarbonate 325 Mg Tab FEEDTUBE 325 mg PRN PRN Administration For Clogged Feeding Tube Sodium Bicarbonate 650 mg 07/04/20 10:00 07/15/20 08:57 Sodium Bicarbonate 650 Mg Tab PO 650 mg TID [facility] Administration Sodium Biphosphate/Sodium Phosphate 133 ml 07/15/20 09:00 Fleet Enema TX Q1H [facility] Sodium Chloride 10 ml 06/17/20 22:00 07/15/20 09:00 Sodium Chloride 0.9% 10 Ml Flush Syringe IV 10 ml BID [facility] Administration Sodium Chloride 10 ml 06/17/20 14:17 Sodium Chloride 0.9% 10 Ml Flush Syringe IV PRN PRN LINE FLUSH Sodium Polystyrene Sulfonate 15 gm 07/03/20 11:19 07/05/20 10:36 Sodium Polystyrene 15 Gm/60 Ml Oral Liqd PO 15 gm Q6HR PRN Administration Hyperkalemia Zinc Sulfate 220 mg 06/17/20 22:00 07/15/20 09:00 Zinc Sulfate 220 Mg Cap PO Not Given BID [facility]
[2020-07-15] MEDS ORDERED: SODIUM CHLORIDE 0.9% 100 ML IV PRN (14:18)
--- NOTE | 2020-07-15 16:23 | Anesthesia Consultation ---
Anesthesia Consult and Med Hx Date of service: 07/15/20 - Airway Intubation Access Assessment: Possibly Difficult (oETT in situ since 06/18/2020) - Pre-Operative Health Status ASA Pre-Surgery Classification: ASA4 Proposed Anesthetic Plan: General - Pulmonary Hx Respiratory Symptoms: Yes (respiratory failure on ventilator) Hx Pneumonia: Yes (COVID+ 06/18/20) - Cardiovascular System Hx Hypertension: Yes (now intermittently on pressors support 2/2 sepsis) Hx Cardia Arrhythmia: Yes (a-fib w/ RVR) - Endocrine Hx Renal Disease: Yes (acute renal failure on HD) - Hematic Hx Anemia: Yes (possibly 2/2 GIB) - Other Systems Hx Obesity: Yes (BMI 46) - Additional Comments Anesthesia Medical History Comments: Hyperkalemic on AM labs; now s/p HD. Remains on propofol and fentanyl gtt for sedation, levophed and vasopressin gtt for BP support, amiodarone gtt for RVR. Peep 12, FiO2 60% w/ SpO2 >90%. Anesthesia consent obtained from Sherri Graham ().
--- NOTE | 2020-07-15 17:45 | Progress Note ---
<DARYL OTTO - Last Filed: 07/15/20 17:41> Assessment and Plan Assessment and plan: -Vasopressor support (CCM and ID consulted, appreciate recommendations) -S/p dexamethasone and remdesivir therapy, contact/droplet isolation, remains on ventilation (wean as tolerated), vitamin C/vitamin D/zinc, anticoagulation per protocol, trend inflammatory markers -CT head with no acute process, supportive care -Wean mechanical ventilation as tolerated, VAP bundle -HD per nephrology -Amiodarone p.o. (remains in A. fib/a flutter) change to IV amiodarone, cardiology aware -Transfuse for hemaglobin less than 7, s/p 9 units PRBC during stay -Serial hemoglobin -Repeat BMP in a.m. -GI consulted, appreciate recommendations -CT abdomen/pelvis pending DVT prophylaxis: GI prophylaxis, heparin subcu, SCDs to bilateral LE while in bed Disposition: ICU ?placement ?trach/peg ?Ltach History Interval history: 59-year-old white male who was admitted for pneumonia secondary to Covid with as sociated respiratory failure and sepsis. Severe septic shock COVID-19 pneumonia Acute metabolic encephalopathy Acute hypoxic respiratory failure Acute kidney injury likely secondary to acute tubular necrosis which progressed to hemodialysis SVT/proximal atrial fibrillation Elevated LFTs Anemia likely due to severe sepsis had declining renal function Morbid obesity 06/18: Patient got intubated overnight. Patient was placed on BiPAP to maintain oxygenation with 100% FiO2 but apparently he found to take off his argueta which made his oxygen saturation go down at 60s/50s and patient was found altered mental status. Code met was called immediately. Patient was transferred to ICU and intubated, patient currently on 2 pressors, intubated with 100% FiO2, renal function noted to be decline, nephrology consulted. Discussed with [place] physician Dr. Thompson and requested call back on Saturday. Poor prognosis, continue to monitor with aggressive supportive care. Also tanisha led family/ to update clinical status. 06/19: Repeat COVID test was positive. cont cefepime, remdesivir per ID recommendation. follow inflammatory markers, cbc, bmp. placed on heparin drip for atrial fib 06/20: Remains on mechanical ventilation, on 2 pressors, on heparin drip. discussed with and daughter by phone. Renal function declining. cont supportive care for now. 06/21: Renal function cont to decline, urine outpt sig decreased. started on lasix 80mg BID, plan to follow urine output, if no improvement patient need to start on HD. called and daughter today. updated all clinical details 06/22: Renal function continues to decline with uremia and hyperkalemia. Will need to proceed with hemodialysis. Nephrology discussed with the family and they agrees for the hemodialysis. Patient remains on pressor support and mechanical ventilation. Vas-Cath placed today by vascular started on hemodialysis today. 06/23: 2nd round of HD today, remains on 2 pressors. per RN not tolerating TF, has no record of BM since 06/18. start on stool softner. follow cbc/bmp. updated family( and daughter) by phone -all question answered to best of my knowledge and to their satisfaction. Patient remains critically ill with a very poor prognosis. 06/24: Continue supportive care, Very poor prognosis, Vocational Psychologist to discuss with family in am due to the futility of the condition. 06/25/2020 continue supportive care very poor prognosis 06/26/2020 continue supportive care very poor prognosis family updated 06/27/2020 continue supportive care and weaning if possible 06/28/2020 continue supportive care, talk with at length 06/29: Resumed care. K level persistently high. give one dose of bicarbonate, plan for HD today, recheck k after HD. updated family by phone 06/30: updated family by phone. Patient remains on amiodarone drip and vasopressin. Getting HD at the bedside. Tolerating tube feeding at low rate. 07/01: Hb dropped to 6.4 today, transfuse one unit PRBC. patient is off pressor today, remains on amioderone. cont to monitor 07/02: Called patient and updated clinical details. Patient remains critically ill, still intubated. Patient's oxygen requirement and PEEP pressure has went down. Continue weaning protocol per critical care recommendation. Patient remains off pressor. Continue to wean off from amiodarone and plan to rate control with p.o. medications. Tolerating tube feeding. H&H stable today. Order for stool for occult blood. Monitor H&H and BMP. Continue to follow clinically 07/03: discussed with [facility] physician today. Patient back on 100percent Fio2 since last night. planned for emergent Hd today. spiked fever, start IV Cefepime + Vancomycin renally dosed. Restarted Levophed today, remains on amiodarone drip. Patient family was updated by critical care attending today. 07/04: Patient has hemodialysis yesterday and also plan for today for volume overload and pulmonary edema. Patient currently on 80% FiO2. Remains on Levophed and amiodarone. Hemoglobin dropped to 6.7 without any evidence of active bleeding. LFTs remain stable. Repeat Covid test on 06/30 and 07/03 remains positive. Will transfuse another unit of packed RBC today. Called family for update -explained family that patient is critically ill with very poor prognosis. 07/05: Patient on 70% FiO2 with PEEP of 14. h/h stable after transfusion. hyperkalemia improved, cont sodiumbicarbonate pill with TF. follow BMP. off levophed today, remains on amioderone. poor prognosis. 07/06: Patient remains on amiodarone drip, maintaining BP without any pressor. FiO2 requirement trended down to 60% with PEEP of 14. Continue to follow clinically. Plan to wean off amiodarone drip as tolerated. Wean off from sedation as tolerated. Updated family. Patient remains critically ill with poor prognosis. 07/07: Called family for update. Off amiodarone drip today, patient also off pressor. FiO2 requirement trended up again to 80-100%. Continue to provide supportive care, monitor clinically. Having difficulty to wean off from the vent support. Patient is persistently positive for COVID-19 and COVID-19 antibody is nonreactive. Patient remains critically ill with very poor prognosis. 07/08: Continue supportive care. 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 Prognosis remains guarded to poor. Management per team. Critical care time 35-minute 07/09/20 patient is tachycardic. Heart rate 121. Hemoglobin 7.3. Patient is having hemodialysis. Continue supportive care. Patient having difficulty to wean off from the vent support. Prognosis is poor. Nephrology and cardiology follow-up. Recheck CBC BMP in the morning. Continue current management. patient seen and examined, remains on full ventilator patient is doing better. Patient is off pressor. heart rate 123. Hemoglobin 6.8 and hematocrit 20.7. WBC is 18.1. Continue supportive care. Patient having difficulty to wean off from the vent support. We will started on Zosyn 4.5 g IV every 8 hours. Will transfuse 1 unit of packed red blood cell. Pro gnosis is poor. Nephrology and cardiology follow up. Recheck CBC BMP in the morning 07/11: remains off vasopressor, h/h appropriately responded to 1 unit PRBC. HD today. Remain on MV with fiO2 at 70%. peep 10. No acute events reported overnight. 07/12: Patient remains in atrial fibrillation on the patient monitor, vasopressor support with Levophed and vasopressin, sedated with fentanyl and pro pofol. Vent settings: CMV 500/25/14/0.60. Patient remains hypercarbic on ABG 07/13: Patient remains on vasopressin, fentanyl and propofol with rectal tube in place. This morning some examination patient was on assist control 25/500/14/0.60. Patient received hemodialysis today. No acute events reported overnight. 07/14: Remains on vasopressin, fentanyl and propofol with tube in place. Rectal tube in place with noted blood clots, GI consulted, on 07/13 H/H dropped from 8.7/27 to 7.4/22 and anticoagulation discontinued. This morning I spoke to his who still wishes for the patient to remain a full code despite update with continued use of vasopressor (vasopressin), current ventilatory support (CMV 500/25/14/0.60) and recent development of rectal bleeding. Patient's family requests an update from [facility] and GI. Cardio changed amio from PO to IV given elevated HR 07/15: Today the patient received a total of 5 units of PRBC and is still having bleeding through his rectal tube. CTA abdomen/pelvis is pending, patient remains on Levophed, fentanyl, propofol, vasopressin and received hemodialysis today. He was also hyperkalemic today to 6 and he received insulin and D50. Extensive conversation with family conducted by [facility] and hospitalist and his and 2 daughters did visit him today at the bedside. Hospitalist Physical - Constitutional Vitals: Temp Pulse Resp BP Pulse Ox 98.4 F 122 H 25 H 100/73 96 07/15/20 17:06 07/15/20 17:15 07/15/20 17:15 07/15/20 17:15 07/15/20 17:15 General appearance: Present: severe distress, well-nourished - EENT ENT: poor dentition, ulcerations - Neck Neck: Absent: masses or JVD, carotid bruits - Respiratory Respiratory effort: other (Loreta strokes) Respiratory: bilateral: diminished - Cardiovascular Rhythm: irregularly irregular Heart Sounds: Present: S1 & S2. Absent: systolic murmur, diastolic murmur - Extremities Extremities: no ischemia, pulses intact, pulses symmetrical Extremity abnormal: cyanosis - Peripheral Assessment Bilateral Generalized Edema Type: Pitting Edema Degree: 3+ Capillary Refill: < 3 seconds Skin Temperature: Cool Peripheral Pulses: within normal limits - Abdominal General gastrointestinal: soft, non-tender, non-distended, hypoactive bowel sounds, absent bowel sounds - Integumentary Integumentary: Present: dry, pale - Psychiatric Psychiatric: other (Sedated) - Neurologic Neurologic: other (Sedated) HEART Score - HEART Score Troponin: Troponin T < 0.010 ng/mL (0.00-0.029) 06/17/20 12:33 Results - Labs CBC & Chem 7: 07/15/20 08:21 07/15/20 08:38 Labs: Laboratory Last Values WBC 45.5 K/mm3 (4.5-11.0) H* 07/15/20 08:21 RBC 2.42 M/mm3 (3.65-5.03) L 07/15/20 08:21 Hgb 7.1 gm/dl (11.8-15.2) L 07/15/20 08:21 Hct 21.5 % (35.5-45.6) L 07/15/20 08:21 MCV 89 fl (84-94) 07/15/20 08:21 MCH 29 pg (28-32) 07/15/20 08:21 MCHC 33 % (32-34) 07/15/20 08:21 RDW 16.5 % (13.2-15.2) H 07/15/20 08:21 Plt Count 312 K/mm3 (140-440) 07/15/20 08:21 Lymph % (Auto) 5.6 % (13.4-35.0) L 07/12/20 03:40 [place] % (Auto) 7.4 % (0.0-7.3) H 07/12/20 03:40 Eos % (Auto) 2.8 % (0.0-4.3) 07/12/20 03:40 Baso % (Auto) 0.3 % (0.0-1.8) 07/12/20 03:40 Lymph # (Auto) 1.4 K/mm3 (1.2-5.4) 07/12/20 03:40 [place] # (Auto) 1.8 K/mm3 (0.0-0.8) H 07/12/20 03:40 Eos # (Auto) 0.7 K/mm3 (0.0-0.4) H 07/12/20 03:40 Baso # (Auto) 0.1 K/mm3 (0.0-0.1) 07/12/20 03:40 Add Manual Diff Complete 07/15/20 08:21 Total Counted 100 07/15/20 08:21 Seg Neutrophils % Apn 07/14/20 16:44 Seg Neuts % (Manual) 89.0 % (40.0-70.0) H 07/15/20 08:21 Band Neutrophils % 7.0 % 07/14/20 16:44 Lymphocytes % (Manual) 7.0 % (13.4-35.0) L 07/15/20 08:21 Reactive Lymphs % (Man) 1.0 % 06/23/20 04:00 Monocytes % (Manual) 4.0 % (0.0-7.3) 07/15/20 08:21 Eosinophils % (Manual) 4.0 % (0.0-4.3) 07/11/20 06:52 Metamyelocytes % 7.0 % 07/14/20 16:44 Myelocytes % 2.0 % 07/10/20 03:55 Nucleated RBC % Not Reportable 07/15/20 08:21 Seg Neutrophils # 20.4 K/mm3 (1.8-7.7) H 07/12/20 03:40 Seg Neutrophils # Man 40.5 K/mm3 (1.8-7.7) H 07/15/20 08:21 Band Neutrophils # 0.0 K/mm3 07/15/20 08:21 Lymphocytes # (Manual) 3.2 K/mm3 (1.2-5.4) 07/15/20 08:21 Abs React Lymphs (Man) 0.0 K/mm3 07/15/20 08:21 Monocytes # (Manual) 1.8 K/mm3 (0.0-0.8) H 07/15/20 08:21 Eosinophils # (Manual) 0.0 K/mm3 (0.0-0.4) 07/15/20 08:21 Basophils # (Manual) 0.0 K/mm3 (0.0-0.1) 07/15/20 08:21 Metamyelocytes # 0.0 K/mm3 07/15/20 08:21 Myelocytes # 0.0 K/mm3 07/15/20 08:21 Promyelocytes # 0.0 K/mm3 07/15/20 08:21 Blast Cells # 0.0 K/mm3 07/15/20 08:21 Pathologist Review Not Reportable 06/26/20 05:47 WBC Morphology Not Reportable 07/15/20 08:21 Hypersegmented Neuts Not Reportable 07/15/20 08:21 Hyposegmented Neuts Not Reportable 07/15/20 08:21 Hypogranular Neuts Not Reportable 07/15/20 08:21 Smudge Cells Not Reportable 07/15/20 08:21 Toxic Granulation Not Reportable 07/15/20 08:21 Toxic Vacuolation Not Reportable 07/15/20 08:21 Dohle Bodies Not Reportable 07/15/20 08:21 Pelger-Huet Anomaly Not Reportable 07/15/20 08:21 Carlito Rods Not Reportable 07/15/20 08:21 Platelet Estimate Appears normal 07/15/20 08:21 Clumped Platelets Not Reportable 07/15/20 08:21 Plt Clumps, EDTA Not Reportable 07/15/20 08:21 Large Platelets Not Reportable 07/15/20 08:21 Giant Platelets Rare 07/15/20 08:21 Platelet Satelliting Not Reportable 07/15/20 08:21 Plt Morphology Comment Not Reportable 07/15/20 08:21 RBC Morphology Not Reportable 07/15/20 08:21 Dimorphic RBCs Not Reportable 07/15/20 08:21 Polychromasia Not Reportable 07/15/20 08:21 Hypochromasia Not Reportable 07/15/20 08:21 Poikilocytosis Few 07/15/20 08:21 Anisocytosis Not Reportable 07/15/20 08:21 Microcytosis Not Reportable 07/15/20 08:21 Macrocytosis Rare 07/15/20 08:21 Spherocytes Not Reportable 07/15/20 08:21 Pappenheimer Bodies Not Reportable 07/15/20 08:21 Sickle Cells Not Reportable 07/15/20 08:21 Target Cells Not Reportable 07/15/20 08:21 Tear Drop Cells Not Reportable 07/15/20 08:21 Ovalocytes Not Reportable 07/15/20 08:21 Stomatocytes Rare 07/10/20 03:55 Helmet Cells Not Reportable 07/15/20 08:21 [place] Bodies Not Reportable 07/15/20 08:21 Calcium Rings Not Reportable 07/15/20 08:21 Livier Cells Not Reportable 07/15/20 08:21 Bite Cells Not Reportable 07/15/20 08:21 Crenated Cell Not Reportable 07/15/20 08:21 Elliptocytes Not Reportable 07/15/20 08:21 Acanthocytes (Spur) Not Reportable 07/15/20 08:21 Rouleaux Not Reportable 07/15/20 08:21 Hemoglobin C Crystals Not Reportable 07/15/20 08:21 Schistocytes Not Reportable 07/15/20 08:21 Malaria parasites Not Reportable 07/15/20 08:21 Victoriano Bodies Not Reportable 07/15/20 08:21 Hem Pathologist Commnt No 07/15/20 08:21 PT 17.6 Sec. (12.2-14.9) H 07/15/20 08:21 INR 1.46 (0.87-1.13) H 07/15/20 08:21 APTT 28.5 Sec. (24.2-36.6) 06/26/20 05:47 Fibrinogen 419 mg/dl (211-480) 07/15/20 08:21 D-Dimer 6608.00 ng/mlDDU (0-234) H 07/03/20 14:50 Heparin Anti-Xa Level < 0.10 U.I./ml (0.3-0.7) L 06/26/20 01:30 ABG pH 7.409 (7.320-7.450) 07/15/20 04:13 POC ABG pCO2 38.5 mmHg (32.0-48.0) 07/15/20 04:13 ABG pCO2 56.4 mm Hg 07/05/20 04:30 POC ABG pO2 86.7 mmHg (83-108) 07/15/20 04:13 ABG pO2 151.9 mm Hg (80.0-90.0) H 07/05/20 04:30 POC ABG HCO3 23.8 07/15/20 04:13 ABG HCO3 26.8 mmol/L (20.0-26.0) H 07/05/20 04:30 ABG O2 Saturation 98.7 % (95.0-99.0) 07/05/20 04:30 ABG O2 Content 5.0 (0.0-44) 07/04/20 05:20 POC ABG Base Excess -0.8 07/15/20 04:13 ABG Base Excess 0.1 mmol/L (-2.0-3.0) 07/05/20 04:30 ABG Hemoglobin 6.0 (12.0-17.5) L 07/15/20 04:13 ABG Oxyhemoglobin 95.1 (94-98) 07/15/20 04:13 ABG Carboxyhemoglobin 1.7 % (0.0-5.0) 07/05/20 04:30 ABG Methemoglobin 0.3 (0.0-1.5) 07/15/20 04:13 ABG Sodium 130.3 mmol/L (136.0-145.0) L 07/15/20 04:13 ABG Potassium 5.8 mmol/L (3.40-4.50) H 07/15/20 04:13 ABG Chloride 99.0 mmol/L (98-107) 07/15/20 04:13 ABG Glucose 122 mg/dL (65-95) H 07/15/20 04:13 Oxyhemoglobin 96.5 % (95.0-99.0) 07/05/20 04:30 Carboxyhemoglobin 1.0 (0.5-1.5) 07/15/20 04:13 FiO2 60.0 07/15/20 04:13 Sodium 131 mmol/L (137-145) L 07/15/20 08:38 Potassium 6.0 mmol/L (3.6-5.0) H 07/15/20 08:38 Chloride 94.6 mmol/L (98-107) L 07/15/20 08:38 Carbon Dioxide 20 mmol/L (22-30) L 07/15/20 08:38 Anion Gap 22 mmol/L 07/15/20 08:38 BUN 116 mg/dL (9-20) H 07/15/20 08:38 Creatinine 4.6 mg/dL (0.8-1.3) H 07/15/20 08:38 Estimated GFR 16 ml/min 07/15/20 08:38 BUN/Creatinine Ratio 25 % 07/15/20 08:38 Glucose 123 mg/dL (75-100) H 07/15/20 08:38 POC Glucose 181 mg/dL (70-105) H 07/15/20 11:29 Lactic Acid 1.40 mmol/L (0.7-2.0) 07/13/20 08:48 Calcium 7.6 mg/dL (8.4-10.2) L 07/15/20 08:38 Phosphorus 9.40 mg/dL (2.5-4.5) H 06/30/20 03:50 Magnesium 2.70 mg/dL (1.7-2.3) H 06/18/20 20:33 Ferritin 1171.0 ng/mL (30.0-300.0) H 07/03/20 14:50 Total Bilirubin 0.70 mg/dL (0.1-1.2) 07/13/20 06:59 Direct Bilirubin 0.5 mg/dL (0-0.2) H 07/05/20 08:21 Indirect Bilirubin 0.1 mg/dL 07/05/20 08:21 AST 61 units/L (5-40) H 07/13/20 06:59 ALT 85 units/L (7-56) H 07/13/20 06:59 Alkaline Phosphatase 144 units/L (35-129) H 07/13/20 06:59 Lactate Dehydrogenase 525 units/L (91-180) H 07/03/20 14:50 Total Creatine Kinase 618 units/L (55-170) H 06/29/20 Unknown Troponin T < 0.010 ng/mL (0.00-0.029) 06/17/20 12:33 C-Reactive Protein 31.50 mg/dL (0.00-1.30) H 07/03/20 14:50 Total Protein 5.4 g/dL (6.3-8.2) L 07/13/20 06:59 Albumin 2.0 g/dL (3.9-5) L 07/13/20 06:59 Albumin/Globulin Ratio 0.6 % 07/13/20 06:59 Triglycerides 246 mg/dL (2-149) H 07/12/20 04:00 Procalcitonin 6.05 ng/mL (<0.15) 07/13/20 06:59 Arterial Blood Glucose 122 mg/dL (65-95) H 07/15/20 04:13 Arterial Blood Ionized Calcium 4.2 mg/dL (4.6-5.3) L 07/15/20 04:13 Urine Color Yellow (Yellow) 06/17/20 15:57 Urine Turbidity Clear (Clear) 06/17/20 15:57 Urine pH 6.0 (5.0-7.0) 06/17/20 15:57 Ur Specific Simms 1.019 (1.003-1.030) 06/17/20 15:57 Urine Protein 30 mg/dl mg/dL (Negative) 06/17/20 15:57 Urine Glucose (UA) Neg mg/dL (Negative) 06/17/20 15:57 Urine Ketones Neg mg/dL (Negative) 06/17/20 15:57 Urine Blood Sm (Negative) 06/17/20 15:57 Urine Nitrite Neg (Negative) 06/17/20 15:57 Ur Reducing Substances Not Reportable 06/17/20 15:57 Urine Bilirubin Neg (Negative) 06/17/20 15:57 Urine Ictotest Not Reportable 06/17/20 15:57 Urine Urobilinogen < 2.0 mg/dL (<2.0) 06/17/20 15:57 Ur Leukocyte Esterase Neg (Negative) 06/17/20 15:57 Urine WBC (Auto) 1.0 /HPF (0.0-6.0) 06/17/20 15:57 Urine RBC (Auto) 2.0 /HPF (0.0-6.0) 06/17/20 15:57 Urine Mucus Few /HPF 06/17/20 15:57 Urine Creatinine 192.4 mg/dL (0.1-20.0) H 06/18/20 15:00 Urine Sodium 28 mmol/L 06/18/20 15:00 Urine Chloride 31.1 mmolL (110-250) L 06/18/20 15:00 Nasal Screen MRSA (PCR) Negative (Negative) 06/19/20 10:38 Vancomycin Trough 22.7 ug/mL (5.0-20.0) H 06/20/20 08:25 Coronavirus (PCR) Positive (Negative) A 07/03/20 10:10 Hepatitis A IgM Ab Non-reactive (NonReactive) 06/22/20 17:00 Hep Bs Antigen Non-reactive (Negative) 06/22/20 17:00 Hep B Core IgM Ab Non-reactive (NonReactive) 06/22/20 17:00 Hepatitis C Antibody Non-reactive (NonReactive) 06/22/20 17:00 SARS-CoV-2 IgG Ab Nonreactive (NonReactive) 07/04/20 05:20 Blood Type A POSITIVE 07/13/20 16:46 Antibody Screen Negative 07/13/20 16:46 Crossmatch See Detail 07/13/20 16:46 Microbiology: Microbiology 07/15/20 Unknown Tracheal Aspirate Sputum Culture - Preliminary 07/15/20 08:21 Peripheral/Venous Blood Culture - Preliminary Culture in Progress 07/15/20 08:38 Peripheral/Venous Blood Culture - Preliminary Culture in Progress 07/15/20 08:21 Peripheral/Venous Blood Fungal Culture - Preliminary Culture in Progress - Diagnostic Impressions Diagnostic Impressions: Echocardiogram 06/29/20 06:00 Transthoracic Echocardiogram Indication: A-fib BP: 105/47 HR: 99 Conclusions *The study is technically very difficult and limited due to poor acoustic windows. *Global left ventricular wall motion and contractility are within normal limits. *The estimated ejection fraction is 55-60%. *There is no pericardial effusion. Findings Procedure Info: The study quality is technically difficult. The study is technically limited due to poor acoustic windows. Left Ventricle: Global left ventricular wall motion and contractility are within normal limits. Global left ventricular systolic function is normal. The estimated ejection fraction is 55-60%. Left Atrium: The left atrium is not well visualized. Right Ventricle: The right ventricle is not well visualized. Right Atrium: The right atrium is not well visualized. Aortic Valve: The aortic valve is not well visualized. Mitral Valve: The mitral valve is not well visualized. Tricuspid Valve: The tricuspid valve is not well visualized. Pulmonic Valve: The pulmonic valve is not well visualized. Pericardium: There is no pericardial effusion. Venous: There is no change in the dimension of the inferior vena cava with respiration consistent with markedly increased right atrial pressure. [place]ell/IV: Voiding Method Incontinent Active Medications - Current Medications Current Medications: Generic Name Dose Route Start Last Admin Trade Name Freq PRN Reason Stop Dose Admin Acetaminophen 650 mg 06/17/20 14:17 07/03/20 09:16 Acetaminophen 325 Mg Tab PO 650 mg Q4H PRN Administration Pain MILD(1-3)/Fever >100.5/ROBERTS Lipase/Protease/Amylase 1 each 06/19/20 12:15 Lipase 10,500/Protease 25,000/Amylase 43,750 (Units) Dr Shad FEEDTUBE PRN PRN For Clogged Feeding Tube Ascorbic Acid 250 mg 06/17/20 22:00 07/15/20 09:00 Ascorbic Acid 250 Mg Tab PO Not Given BID CONNOR Cholecalciferol 1,000 unit 06/18/20 10:00 07/15/20 09:00 Cholecalciferol (Vit D3) 1000 Unit (25 Mcg) Tab PO Not Given DAILY CONNOR Docusate Sodium 100 mg 06/23/20 15:00 07/15/20 08:59 Docusate Sodium 100 Mg/10 Ml Oral Liqd FEEDTUBE Not Given BID CONNOR Fentanyl 50 mcg 06/18/20 01:02 07/09/20 00:20 Fentanyl 100 Mcg/2 Ml Inj IV 50 mcg Q10MIN PRN Administration ANALGESIA Heparin Sodium (Porcine) 5,000 unit 06/22/20 12:53 06/30/20 13:36 Heparin 10,000 Unit/1 Ml Vial IV 5,000 unit PAM PRN Administration hemodialysis Hydrophilic Ointment 1 applic 06/17/20 22:52 07/12/20 20:22 Lip Therapy Vaseline TP 1 applic Q2HR PRN Administration Dry Lips Propofol 1,000 mg in 100 mls @ 3.402 mls/hr 06/18/20 01:00 07/15/20 13:04 Diprivan 10 Mg/Ml IV 10 mcg/kg/min TITR CONNOR 6.804 mls/hr Administration Protocol 5 MCG/KG/MIN Fentanyl Citrate 2,000 mcg in 100 mls @ 8 mls/hr 06/18/20 02:00 07/15/20 15:45 Fentanyl Drip Premix IV 2 mcg/kg/hr TITR CONNOR 16 mls/hr Administration Protocol 1 MCG/KG/HR Sodium Chloride 500 mls @ 1 mls/hr 06/18/20 09:38 06/19/20 21:37 Nacl 0.9% 500 Ml IV 0 mls/hr DIRECT PRN Infusion ARTERIAL LINE FLUSH Norepinephrine 4 mg in 250 mls @ 7.5 mls/hr 07/08/20 02:06 07/15/20 15:51 Levophed Drip 4 Mg/Ns 250 Ml IV 12 mcg/min TITR CONNOR 45 mls/hr Titration Protocol 2 MCG/MIN Vasopressin 20 unit/ Sodium 101 mls @ 9.09 mls/hr 07/11/20 11:00 07/15/20 15:45 Chloride IV 0.03 units/min TITR CONNOR 9.09 mls/hr Administration Protocol 0.03 UNITS/MIN Amiodarone HCl 900 mg/ 500 mls @ 33.333 mls/hr 07/14/20 12:30 07/15/20 11:10 Dextrose IV 0.5 mg/min DIRECT CONNOR 16.667 mls/hr Administration Protocol 1 MG/MIN Pantoprazole Sodium 80 mg/ 100 mls @ 10 mls/hr 07/15/20 08:00 07/15/20 15:39 Sodium Chloride IV 8 mg/hr DIRECT CONNOR 10 mls/hr Administration 8 MG/HR Cefepime HCl 2 gm in 100 mls @ 200 mls/hr 07/15/20 08:00 07/15/20 08:57 Cefepime/Ns 2 Gm/100 Ml IV 200 mls/hr Q24H CONNOR Administration Protocol Sodium Chloride 100 mls @ 999 mls/hr 07/15/20 14:18 Nacl 0.9% IV PAM PRN Hypotension Metronidazole 500 mg in 100 mls @ 100 mls/hr 07/15/20 20:00 Flagyl 500 Mg/100 Ml IV Q8H [facility] Protocol Insulin Human Regular 0 units 06/18/20 12:00 07/15/20 13:50 Insulin Regular, Human 100 Units/1 Ml SUB-Q Not Given Q6HR CONNOR Protocol Multi-Ingred Cream/Lotion/Oil/Oint 1 applic 06/17/20 22:52 07/12/20 20:22 Mineral Oil/Petrolatum, White Ophth Oint 3.5 Gm OU 1 applic Q4HR PRN Administration Dry Eye(s) Ondansetron HCl 4 mg 06/17/20 14:17 Ondansetron 4 Mg/2 Ml Inj IV Q8H PRN Nausea And Vomiting Polyethylene Glycol 17 gm 06/23/20 15:00 07/15/20 09:00 Polyethylene Glycol 3350 17 Gm Powder PO Not Given QDAY CONNOR Quetiapine Fumarate 200 mg 06/28/20 13:00 07/15/20 09:00 Quetiapine 200 Mg Tab PO Not Given BID CONNOR Simple Syrup 15 ml 06/19/20 12:15 Simple Syrup 15 Ml FEEDTUBE PRN PRN Hypoglycemia Simple Syrup 30 ml 06/19/20 12:15 Simple Syrup 15 Ml FEEDTUBE PRN PRN Hypoglycemia Sodium Bicarbonate 325 mg 06/19/20 12:15 07/11/20 20:00 Sodium Bicarbonate 325 Mg Tab FEEDTUBE 325 mg PRN PRN Administration For Clogged Feeding Tube Sodium Bicarbonate 650 mg 07/04/20 10:00 07/15/20 08:57 Sodium Bicarbonate 650 Mg Tab PO 650 mg TID CONNOR Administration Sodium Biphosphate/Sodium Phosphate 133 ml 07/15/20 09:00 Fleet Enema KS Q1H CON[facility] Sodium Chloride 10 ml 06/17/20 22:00 07/15/20 09:00 Sodium Chloride 0.9% 10 Ml Flush Syringe IV 10 ml BID CONNOR Administration Sodium Chloride 10 ml 06/17/20 14:17 Sodium Chloride 0.9% 10 Ml Flush Syringe IV PRN PRN LINE FLUSH Sodium Polystyrene Sulfonate 15 gm 07/03/20 11:19 07/05/20 10:36 Sodium Polystyrene 15 Gm/60 Ml Oral Liqd PO 15 gm Q6HR PRN Administration Hyperkalemia Zinc Sulfate 220 mg 06/17/20 22:00 07/15/20 09:00 Zinc Sulfate 220 Mg Cap PO Not Given BID [facility] Nutrition/Malnutrition Assess - Dietary Evaluation Nutrition/Malnutrition Findings: Nutrition Notes Start: 06/18/20 10:28 Freq: Status: Active Protocol: Document 07/12/20 11:11 AL (Rec: 07/12/20 11:15 AL [id number]) Co-Sign 07/12/20 11:11 LP Nutrition Notes Initial or Follow up Reassessment Current Diagnosis Acute Kidney Injury,Sepsis, Respiratory Failure Other Pertinent Diagnosis COVID-19 (+), pneu Current Diet Nepro 1.8 at 40ml/hr Labs/Tests Na 134 BUN 79 Cr 3.7 Pertinent Medications Propofol at 6.8 ml/hr (180 kcal) Levophed Vasopressin Height 6 ft Weight 160 kg [place] Body Weight (kg) 80.90 BMI 47.8 Weight change and time frame Wt change of 30 kg noted. Pt on HD Weight Status Obese Subjective/Other Information FU for stable TF. Pt tolerating TF at 40 ml/hr ( goal rate). Percent of energy/protein needs met: 89%/48% Burn Absent Trauma Absent Current % PO Negligible Minimum of two criteria No physical signs of malnutrition #2 Nutrition Diagnosis Overweight/obesity Diagnosis Progress(for reassessment Continues documentation) #1 Nutrition Diagnosis Inadequate oral intake Diagnosis Progress(for reassessment Continues documentation) Is patient on ventilator? Yes Is Patient Ambulatory and/or Out of Bed No REE-([place]-confined to bed) 2929.632 Kcal/Kg value to use for calculation 12 Approximate Energy Requirements Using 1920 kcal/Kg Calculation Used for Recommendations Kcal/kg Additional Notes Protein needs up to >2 g/kg IBW: 162 g Fluid needs: 1,000 ml + output Nutrition Intervention Change Diet Order: TF Nutrition Support: Nepro 1.8 at 50 ml/hr Flush 215 ml q4h Kcal 2,160 Protein (gm) 97 Fluid (mL) 872 Goal #1 Tolerate TF at goal rate Goal #2 Meet energy and protein needs as best as possible. Anticipated Discharge Needs: Unable to determine at the time. Follow-Up By: 07/19/20 Additional Comments F/U for TF tolerance and vent status <ZEESHAN CHAIDEZ - Last Filed: 07/16/20 08:02> Assessment and Plan Assessment and plan: I saw and evaluated the patient. I agree with the findings and the plan of care as documented in the Nurse Practitioner's~note, with the following corrections a nd additions. The high probability of a clinically significant, sudden or life threatening deterioration of the [multi] system(s) required my full and direct attention, intervention and personal management. The aggregate critical care time was [35] minutes. This time is in addition to time spent performing reported procedures but includes the following: [x] Data Review and interpretation [x] Patient assessment and monitoring of vital signs [x] Documentation [x] Medication orders and management Hospitalist Physical - Constitutional Vitals: Temp Pulse Resp BP Pulse Ox 98.7 F 128 H 26 H 122/68 94 07/16/20 03:36 07/16/20 07:30 07/16/20 07:30 07/16/20 07:30 07/16/20 07:30 HEART Score - HEART Score Troponin: Troponin T < 0.010 ng/mL (0.00-0.029) 06/17/20 12:33 Results - Labs CBC & Chem 7: 07/16/20 07:29 07/16/20 04:28 Labs: Laboratory Last Values WBC 48.9 K/mm3 (4.5-11.0) H* 07/16/20 04:28 RBC 2.86 M/mm3 (3.65-5.03) L 07/16/20 04:28 Hgb 7.9 gm/dl (11.8-15.2) L 07/16/20 07:29 Hct 24.4 % (35.5-45.6) L 07/16/20 07:29 MCV 89 fl (84-94) 07/16/20 04:28 MCH 30 pg (28-32) 07/16/20 04:28 MCHC 34 % (32-34) 07/16/20 04:28 RDW 15.6 % (13.2-15.2) H 07/16/20 04:28 Plt Count 279 K/mm3 (140-440) 07/16/20 04:28 Lymph % (Auto) 5.6 % (13.4-35.0) L 07/12/20 03:40 [place] % (Auto) 7.4 % (0.0-7.3) H 07/12/20 03:40 Eos % (Auto) 2.8 % (0.0-4.3) 07/12/20 03:40 Baso % (Auto) 0.3 % (0.0-1.8) 07/12/20 03:40 Lymph # (Auto) 1.4 K/mm3 (1.2-5.4) 07/12/20 03:40 [place] # (Auto) 1.8 K/mm3 (0.0-0.8) H 07/12/20 03:40 Eos # (Auto) 0.7 K/mm3 (0.0-0.4) H 07/12/20 03:40 Baso # (Auto) 0.1 K/mm3 (0.0-0.1) 07/12/20 03:40 Add Manual Diff Complete 07/15/20 08:21 Total Counted 100 07/15/20 08:21 Seg Neutrophils % Apn 07/14/20 16:44 Seg Neuts % (Manual) 89.0 % (40.0-70.0) H 07/15/20 08:21 Band Neutrophils % 7.0 % 07/14/20 16:44 Lymphocytes % (Manual) 7.0 % (13.4-35.0) L 07/15/20 08:21 Reactive Lymphs % (Man) 1.0 % 06/23/20 04:00 Monocytes % (Manual) 4.0 % (0.0-7.3) 07/15/20 08:21 Eosinophils % (Manual) 4.0 % (0.0-4.3) 07/11/20 06:52 Metamyelocytes % 7.0 % 07/14/20 16:44 Myelocytes % 2.0 % 07/10/20 03:55 Nucleated RBC % Not Reportable 07/15/20 08:21 Seg Neutrophils # 20.4 K/mm3 (1.8-7.7) H 07/12/20 03:40 Seg Neutrophils # Man 40.5 K/mm3 (1.8-7.7) H 07/15/20 08:21 Band Neutrophils # 0.0 K/mm3 07/15/20 08:21 Lymphocytes # (Manual) 3.2 K/mm3 (1.2-5.4) 07/15/20 08:21 Abs React Lymphs (Man) 0.0 K/mm3 07/15/20 08:21 Monocytes # (Manual) 1.8 K/mm3 (0.0-0.8) H 07/15/20 08:21 Eosinophils # (Manual) 0.0 K/mm3 (0.0-0.4) 07/15/20 08:21 Basophils # (Manual) 0.0 K/mm3 (0.0-0.1) 07/15/20 08:21 Metamyelocytes # 0.0 K/mm3 07/15/20 08:21 Myelocytes # 0.0 K/mm3 07/15/20 08:21 Promyelocytes # 0.0 K/mm3 07/15/20 08:21 Blast Cells # 0.0 K/mm3 07/15/20 08:21 Pathologist Review Not Reportable 06/26/20 05:47 WBC Morphology Not Reportable 07/15/20 08:21 Hypersegmented Neuts Not Reportable 07/15/20 08:21 Hyposegmented Neuts Not Reportable 07/15/20 08:21 Hypogranular Neuts Not Reportable 07/15/20 08:21 Smudge Cells Not Reportable 07/15/20 08:21 Toxic Granulation Not Reportable 07/15/20 08:21 Toxic Vacuolation Not Reportable 07/15/20 08:21 Dohle Bodies Not Reportable 07/15/20 08:21 Pelger-Huet Anomaly Not Reportable 07/15/20 08:21 Carlito Rods Not Reportable 07/15/20 08:21 Platelet Estimate Appears normal 07/15/20 08:21 Clumped Platelets Not Reportable 07/15/20 08:21 Plt Clumps, EDTA Not Reportable 07/15/20 08:21 Large Platelets Not Reportable 07/15/20 08:21 Giant Platelets Rare 07/15/20 08:21 Platelet Satelliting Not Reportable 07/15/20 08:21 Plt Morphology Comment Not Reportable 07/15/20 08:21 RBC Morphology Not Reportable 07/15/20 08:21 Dimorphic RBCs Not Reportable 07/15/20 08:21 Polychromasia Not Reportable 07/15/20 08:21 Hypochromasia Not Reportable 07/15/20 08:21 Poikilocytosis Few 07/15/20 08:21 Anisocytosis Not Reportable 07/15/20 08:21 Microcytosis Not Reportable 07/15/20 08:21 Macrocytosis Rare 07/15/20 08:21 Spherocytes Not Reportable 07/15/20 08:21 Pappenheimer Bodies Not Reportable 07/15/20 08:21 Sickle Cells Not Reportable 07/15/20 08:21 Target Cells Not Reportable 07/15/20 08:21 Tear Drop Cells Not Reportable 07/15/20 08:21 Ovalocytes Not Reportable 07/15/20 08:21 Stomatocytes Rare 07/10/20 03:55 Helmet Cells Not Reportable 07/15/20 08:21 [place] Bodies Not Reportable 07/15/20 08:21 Calcium Rings Not Reportable 07/15/20 08:21 [place] Cells Not Reportable 07/15/20 08:21 Bite Cells Not Reportable 07/15/20 08:21 Crenated Cell Not Reportable 07/15/20 08:21 Elliptocytes Not Reportable 07/15/20 08:21 Acanthocytes (Spur) Not Reportable 07/15/20 08:21 Rouleaux Not Reportable 07/15/20 08:21 Hemoglobin C Crystals Not Reportable 07/15/20 08:21 Schistocytes Not Reportable 07/15/20 08:21 Malaria parasites Not Reportable 07/15/20 08:21 Victoriano Bodies Not Reportable 07/15/20 08:21 Hem Pathologist Commnt No 07/15/20 08:21 PT 17.6 Sec. (12.2-14.9) H 07/15/20 08:21 INR 1.46 (0.87-1.13) H 07/15/20 08:21 APTT 28.5 Sec. (24.2-36.6) 06/26/20 05:47 Fibrinogen 419 mg/dl (211-480) 07/15/20 08:21 D-Dimer 6608.00 ng/mlDDU (0-234) H 07/03/20 14:50 Heparin Anti-Xa Level < 0.10 U.I./ml (0.3-0.7) L 06/26/20 01:30 ABG pH 7.409 (7.320-7.450) 07/15/20 04:13 POC ABG pCO2 38.5 mmHg (32.0-48.0) 07/15/20 04:13 ABG pCO2 56.4 mm Hg 07/05/20 04:30 POC ABG pO2 86.7 mmHg (83-108) 07/15/20 04:13 ABG pO2 151.9 mm Hg (80.0-90.0) H 07/05/20 04:30 POC ABG HCO3 23.8 07/15/20 04:13 ABG HCO3 26.8 mmol/L (20.0-26.0) H 07/05/20 04:30 ABG O2 Saturation 98.7 % (95.0-99.0) 07/05/20 04:30 ABG O2 Content 5.0 (0.0-44) 07/04/20 05:20 POC ABG Base Excess -0.8 07/15/20 04:13 ABG Base Excess 0.1 mmol/L (-2.0-3.0) 07/05/20 04:30 ABG Hemoglobin 6.0 (12.0-17.5) L 07/15/20 04:13 ABG Oxyhemoglobin 95.1 (94-98) 07/15/20 04:13 ABG Carboxyhemoglobin 1.7 % (0.0-5.0) 07/05/20 04:30 ABG Methemoglobin 0.3 (0.0-1.5) 07/15/20 04:13 ABG Sodium 130.3 mmol/L (136.0-145.0) L 07/15/20 04:13 ABG Potassium 5.8 mmol/L (3.40-4.50) H 07/15/20 04:13 ABG Chloride 99.0 mmol/L (98-107) 07/15/20 04:13 ABG Glucose 122 mg/dL (65-95) H 07/15/20 04:13 Oxyhemoglobin 96.5 % (95.0-99.0) 07/05/20 04:30 Carboxyhemoglobin 1.0 (0.5-1.5) 07/15/20 04:13 FiO2 60.0 07/15/20 04:13 Sodium 136 mmol/L (137-145) L 07/16/20 04:28 Potassium 5.4 mmol/L (3.6-5.0) H 07/16/20 04:28 Chloride 95.0 mmol/L (98-107) L 07/16/20 04:28 Carbon Dioxide 24 mmol/L (22-30) 07/16/20 04:28 Anion Gap 22 mmol/L 07/16/20 04:28 BUN 85 mg/dL (9-20) H 07/16/20 04:28 Creatinine 3.4 mg/dL (0.8-1.3) H 07/16/20 04:28 Estimated GFR 22 ml/min 07/16/20 04:28 BUN/Creatinine Ratio 25 % 07/16/20 04:28 Glucose 66 mg/dL (75-100) L 07/16/20 04:28 POC Glucose 73 mg/dL (70-105) 07/16/20 05:33 Lactic Acid 1.40 mmol/L (0.7-2.0) 07/13/20 08:48 Calcium 6.8 mg/dL (8.4-10.2) L 07/16/20 04:28 Phosphorus 9.40 mg/dL (2.5-4.5) H 06/30/20 03:50 Magnesium 2.70 mg/dL (1.7-2.3) H 06/18/20 20:33 Ferritin 1171.0 ng/mL (30.0-300.0) H 07/03/20 14:50 Total Bilirubin 0.70 mg/dL (0.1-1.2) 07/13/20 06:59 Direct Bilirubin 0.5 mg/dL (0-0.2) H 07/05/20 08:21 Indirect Bilirubin 0.1 mg/dL 07/05/20 08:21 AST 61 units/L (5-40) H 07/13/20 06:59 ALT 85 units/L (7-56) H 07/13/20 06:59 Alkaline Phosphatase 144 units/L (35-129) H 07/13/20 06:59 Lactate Dehydrogenase 525 units/L (91-180) H 07/03/20 14:50 Total Creatine Kinase 618 units/L (55-170) H 06/29/20 Unknown Troponin T < 0.010 ng/mL (0.00-0.029) 06/17/20 12:33 C-Reactive Protein 31.50 mg/dL (0.00-1.30) H 07/03/20 14:50 Total Protein 5.4 g/dL (6.3-8.2) L 07/13/20 06:59 Albumin 2.0 g/dL (3.9-5) L 07/13/20 06:59 Albumin/Globulin Ratio 0.6 % 07/13/20 06:59 Triglycerides 246 mg/dL (2-149) H 07/12/20 04:00 Procalcitonin 6.05 ng/mL (<0.15) 07/13/20 06:59 Arterial Blood Glucose 122 mg/dL (65-95) H 07/15/20 04:13 Arterial Blood Ionized Calcium 4.2 mg/dL (4.6-5.3) L 07/15/20 04:13 Urine Color Yellow (Yellow) 06/17/20 15:57 Urine Turbidity Clear (Clear) 06/17/20 15:57 Urine pH 6.0 (5.0-7.0) 06/17/20 15:57 Ur Specific [place] 1.019 (1.003-1.030) 06/17/20 15:57 Urine Protein 30 mg/dl mg/dL (Negative) 06/17/20 15:57 Urine Glucose (UA) Neg mg/dL (Negative) 06/17/20 15:57 Urine Ketones Neg mg/dL (Negative) 06/17/20 15:57 Urine Blood Sm (Negative) 06/17/20 15:57 Urine Nitrite Neg (Negative) 06/17/20 15:57 Ur Reducing Substances Not Reportable 06/17/20 15:57 Urine Bilirubin Neg (Negative) 06/17/20 15:57 Urine Ictotest Not Reportable 06/17/20 15:57 Urine Urobilinogen < 2.0 mg/dL (<2.0) 06/17/20 15:57 Ur Leukocyte Esterase Neg (Negative) 06/17/20 15:57 Urine WBC (Auto) 1.0 /HPF (0.0-6.0) 06/17/20 15:57 Urine RBC (Auto) 2.0 /HPF (0.0-6.0) 06/17/20 15:57 Urine Mucus Few /HPF 06/17/20 15:57 Urine Creatinine 192.4 mg/dL (0.1-20.0) H 06/18/20 15:00 Urine Sodium 28 mmol/L 06/18/20 15:00 Urine Chloride 31.1 mmolL (110-250) L 06/18/20 15:00 Nasal Screen MRSA (PCR) Negative (Negative) 06/19/20 10:38 Vancomycin Trough 22.7 ug/mL (5.0-20.0) H 06/20/20 08:25 Coronavirus (PCR) Positive (Negative) A 07/03/20 10:10 Hepatitis A IgM Ab Non-reactive (NonReactive) 06/22/20 17:00 Hep Bs Antigen Non-reactive (Negative) 06/22/20 17:00 Hep B Core IgM Ab Non-reactive (NonReactive) 06/22/20 17:00 Hepatitis C Antibody Non-reactive (NonReactive) 06/22/20 17:00 SARS-CoV-2 IgG Ab Nonreactive (NonReactive) 07/04/20 05:20 Blood Type A POSITIVE 07/13/20 16:46 Antibody Screen Negative 07/13/20 16:46 Crossmatch See Detail 07/13/20 16:46 Microbiology: Microbiology 07/15/20 Unknown Tracheal Aspirate Sputum Culture - Preliminary 07/15/20 08:21 Peripheral/Venous Blood Culture - Preliminary Culture in Progress 07/15/20 08:38 Peripheral/Venous Blood Culture - Preliminary Culture in Progress 07/15/20 08:21 Peripheral/Venous Blood Fungal Culture - Preliminary Culture in Progress - Diagnostic Impressions Diagnostic Impressions: Echocardiogram 06/29/20 06:00 Transthoracic Echocardiogram Indication: A-fib BP: 105/47 HR: 99 Conclusions *The study is technically very difficult and limited due to poor acoustic windows. *Global left ventricular wall motion and contractility are within normal limits. *The estimated ejection fraction is 55-60%. *There is no pericardial effusion. Findings Procedure Info: The study quality is technically difficult. The study is technically limited due to poor acoustic windows. Left Ventricle: Global left ventricular wall motion and contractility are within normal limits. Global left ventricular systolic function is normal. The estimated ejection fraction is 55-60%. Left Atrium: The left atrium is not well visualized. Right Ventricle: The right ventricle is not well visualized. Right Atrium: The right atrium is not well visualized. Aortic Valve: The aortic valve is not well visualized. Mitral Valve: The mitral valve is not well visualized. Tricuspid Valve: The tricuspid valve is not well visualized. Pulmonic Valve: The pulmonic valve is not well visualized. Pericardium: There is no pericardial effusion. Venous: There is no change in the dimension of the inferior vena cava with respiration consistent with markedly increased right atrial pressure. [place]/IV: Voiding Method Incontinent Active Medications - Current Medications Current Medications: Generic Name Dose Route Start Last Admin Trade Name Freq PRN Reason Stop Dose Admin Acetaminophen 650 mg 06/17/20 14:17 07/03/20 09:16 Acetaminophen 325 Mg Tab PO 650 mg Q4H PRN Administration Pain MILD(1-3)/Fever >100.5/ROBERTS Lipase/Protease/Amylase 1 each 06/19/20 12:15 Lipase 10,500/Protease 25,000/Amylase 43,750 (Units) Dr Cap FEEDTUBE PRN PRN For Clogged Feeding Tube Ascorbic Acid 250 mg 06/17/20 22:00 07/15/20 23:12 Ascorbic Acid 250 Mg Tab PO Not Given BID CONNOR Cholecalciferol 1,000 unit 06/18/20 10:00 07/15/20 09:00 Cholecalciferol (Vit D3) 1000 Unit (25 Mcg) Tab PO Not Given DAILY CONNOR Docusate Sodium 100 mg 06/23/20 15:00 07/15/20 22:00 Docusate Sodium 100 Mg/10 Ml Oral Liqd FEEDTUBE Not Given BID CONNOR Fentanyl 50 mcg 06/18/20 01:02 07/09/20 00:20 Fentanyl 100 Mcg/2 Ml Inj IV 50 mcg Q10MIN PRN Administration ANALGESIA Heparin Sodium (Porcine) 5,000 unit 06/22/20 12:53 06/30/20 13:36 Heparin 10,000 Unit/1 Ml Vial IV 5,000 unit PAM PRN Administration hemodialysis Hydrophilic Ointment 1 applic 06/17/20 22:52 07/12/20 20:22 Lip Therapy Vaseline TP 1 applic Q2HR PRN Administration Dry Lips Propofol 1,000 mg in 100 mls @ 3.402 mls/hr 06/18/20 01:00 07/15/20 22:57 Diprivan 10 Mg/Ml IV 10 mcg/kg/min TITR CONNOR 6.804 mls/hr Administration Protocol 5 MCG/KG/MIN Fentanyl Citrate 2,000 mcg in 100 mls @ 8 mls/hr 06/18/20 02:00 07/16/20 02:52 Fentanyl Drip Premix IV 2 mcg/kg/hr TITR CONNOR 16 mls/hr Administration Protocol 1 MCG/KG/HR Sodium Chloride 500 mls @ 1 mls/hr 06/18/20 09:38 06/19/20 21:37 Nacl 0.9% 500 Ml IV 0 mls/hr DIRECT PRN Infusion ARTERIAL LINE FLUSH Norepinephrine 4 mg in 250 mls @ 7.5 mls/hr 07/08/20 02:06 07/16/20 04:28 Levophed Drip 4 Mg/Ns 250 Ml IV 8 mcg/min TITR CONNOR 30 mls/hr Administration Protocol 2 MCG/MIN Vasopressin 20 unit/ Sodium 101 mls @ 9.09 mls/hr 07/11/20 11:00 07/16/20 04:30 Chloride IV 0.03 units/min TITR CONNOR 9.09 mls/hr Administration Protocol 0.03 UNITS/MIN Amiodarone HCl 900 mg/ 500 mls @ 33.333 mls/hr 07/14/20 12:30 07/15/20 11:10 Dextrose IV 0.5 mg/min DIRECT CONNOR 16.667 mls/hr Administration Protocol 1 MG/MIN Pantoprazole Sodium 80 mg/ 100 mls @ 10 mls/hr 07/15/20 08:00 07/16/20 04:31 Sodium Chloride IV 8 mg/hr DIRECT CONNOR 10 mls/hr Administration 8 MG/HR Cefepime HCl 2 gm in 100 mls @ 200 mls/hr 07/15/20 08:00 07/15/20 08:57 Cefepime/Ns 2 Gm/100 Ml IV 200 mls/hr Q24H CONNOR Administration Protocol Sodium Chloride 100 mls @ 999 mls/hr 07/15/20 14:18 Nacl 0.9% IV PAM PRN Hypotension Metronidazole 500 mg in 100 mls @ 100 mls/hr 07/15/20 20:00 07/16/20 05:33 Flagyl 500 Mg/100 Ml IV 100 mls/hr Q8H CONNOR Administration Protocol Sodium Chloride 1,000 mls @ 50 mls/hr 07/15/20 19:15 Nacl 0.9% 1000 Ml IV DIRECT CONNOR Insulin Human Regular 0 units 06/18/20 12:00 07/16/20 07:33 Insulin Regular, Human 100 Units/1 Ml SUB-Q Not Given Q6HR CONNOR Protocol Multi-Ingred Cream/Lotion/Oil/Oint 1 applic 06/17/20 22:52 07/12/20 20:22 Mineral Oil/Petrolatum, White Ophth Oint 3.5 Gm OU 1 applic Q4HR PRN Administration Dry Eye(s) Ondansetron HCl 4 mg 06/17/20 14:17 Ondansetron 4 Mg/2 Ml Inj IV Q8H PRN Nausea And Vomiting Polyethylene Glycol 17 gm 06/23/20 15:00 07/15/20 09:00 Polyethylene Glycol 3350 17 Gm Powder PO Not Given QDAY CONNOR Quetiapine Fumarate 200 mg 06/28/20 13:00 07/15/20 23:32 Quetiapine 200 Mg Tab PO Not Given BID CONNOR Simple Syrup 15 ml 06/19/20 12:15 Simple Syrup 15 Ml FEEDTUBE PRN PRN Hypoglycemia Simple Syrup 30 ml 06/19/20 12:15 Simple Syrup 15 Ml FEEDTUBE PRN PRN Hypoglycemia Sodium Bicarbonate 325 mg 06/19/20 12:15 07/11/20 20:00 Sodium Bicarbonate 325 Mg Tab FEEDTUBE 325 mg PRN PRN Administration For Clogged Feeding Tube Sodium Bicarbonate 650 mg 07/04/20 10:00 07/15/20 20:00 Sodium Bicarbonate 650 Mg Tab PO Not Given TID CONNOR Sodium Biphosphate/Sodium Phosphate 133 ml 07/15/20 09:00 07/16/20 07:30 Fleet Enema KS Not Given Q1H CONNOR Sodium Chloride 10 ml 06/17/20 22:00 07/15/20 21:00 Sodium Chloride 0.9% 10 Ml Flush Syringe IV 10 ml BID CONNOR Administration Sodium Chloride 10 ml 06/17/20 14:17 Sodium Chloride 0.9% 10 Ml Flush Syringe IV PRN PRN LINE FLUSH Sodium Polystyrene Sulfonate 15 gm 07/03/20 11:19 07/05/20 10:36 Sodium Polystyrene 15 Gm/60 Ml Oral Liqd PO 15 gm Q6HR PRN Administration Hyperkalemia Zinc Sulfate 220 mg 06/17/20 22:00 07/15/20 23:32 Zinc Sulfate 220 Mg Cap PO Not Given BID CONNOR Nutrition/Malnutrition Assess - Dietary Evaluation Nutrition/Malnutrition Findings: Nutrition Notes Start: 06/18/20 10:28 Freq: Status: Active Protocol: Document 07/12/20 11:11 AL (Rec: 07/12/20 11:15 AL [id number]) Co-Sign 07/12/20 11:11 LP Nutrition Notes Initial or Follow up Reassessment Current Diagnosis Acute Kidney Injury,Sepsis, Respiratory Failure Other Pertinent Diagnosis COVID-19 (+), pneu Current Diet Nepro 1.8 at 40ml/hr Labs/Tests Na 134 BUN 79 Cr 3.7 Pertinent Medications Propofol at 6.8 ml/hr (180 kcal) Levophed Vasopressin Height 6 ft Weight 160 kg [place] Body Weight (kg) 80.90 BMI 47.8 Weight change and time frame Wt change of 30 kg noted. Pt on HD Weight Status Obese Subjective/Other Information FU for stable TF. Pt tolerating TF at 40 ml/hr ( goal rate). Percent of energy/protein needs met: 89%/48% Burn Absent Trauma Absent Current % PO Negligible Minimum of two criteria No physical signs of malnutrition #2 Nutrition Diagnosis Overweight/obesity Diagnosis Progress(for reassessment Continues documentation) #1 Nutrition Diagnosis Inadequate oral intake Diagnosis Progress(for reassessment Continues documentation) Is patient on ventilator? Yes Is Patient Ambulatory and/or Out of Bed No REE-([place]-confined to bed) 2929.632 Kcal/Kg value to use for calculation 12 Approximate Energy Requirements Using 1920 kcal/Kg Calculation Used for Recommendations Kcal/kg Additional Notes Protein needs up to >2 g/kg IBW: 162 g Fluid needs: 1,000 ml + output Nutrition Intervention Change Diet Order: TF Nutrition Support: Nepro 1.8 at 50 ml/hr Flush 215 ml q4h Kcal 2,160 Protein (gm) 97 Fluid (mL) 872 Goal #1 Tolerate TF at goal rate Goal #2 Meet energy and protein needs as best as possible. Anticipated Discharge Needs: Unable to determine at the time. Follow-Up By: 07/19/20 Additional Comments F/U for TF tolerance and vent status
[2020-07-15] MEDS: FLEET ENEMA PR SCH ×4 (18:04→23:32)
[2020-07-15 19:12] LABS: Hematocrit 29.8 % (35.5-45.6); Hemoglobin 9.9 gm/dl (11.8-15.2)
[2020-07-15] MEDS ORDERED: SODIUM CHLORIDE 0.9% 1000 ML 1,000 ML IV SCH (19:15)
[2020-07-15 19:20] LABS: Calcium 7.3 mg/dL (8.4-10.2)
--- NOTE | 2020-07-15 19:51 | Anesthesia Day of Surgery ---
Anesthesia Day of Surgery - Day of Surgery Patient Examined: Yes Patient H&P Reviewed: Yes Patient is NPO: Yes
--- NOTE | 2020-07-15 20:02 | Post Operative Note ---
Pre-op diagnosis: gi bleed Post-op diagnosis: same Findings: EGD: hiatal hernia - gastritis - negative other Colon: extremely poor prep w/ old blood throughout - diverticulosis - no active bleeding Procedure: EGD/colonoscopy Anesthesia: MAC Surgeon: KANU TOMPKINS Estimated blood loss: none Pathology: list Specimen disposition: to lab Condition: stable Disposition: ICU
--- NOTE | 2020-07-15 20:10 | Post Anesthesia Evaluation ---
- Post Anesthesia Evaluation Patient Participated: No (sedated) Airway Patent: Yes Stable Respiratory Function: Yes Nausea/Vomiting: No Temp > 96.8F: Yes Pain Manageable: Yes (unable to assess) Adequeate Hydration: Yes Anesthesia Complications: No Patient on Ventilator: Yes (maintained on pre-procedure vent settings) Other Comments: Patient returned to pre-procedure sedation settings. Pressor settings unchanged throughout the procedure. Report given to RISK CONTROL DIRECTOR.
--- NOTE | 2020-07-15 20:19 | Operative Report ---
PROCEDURE: EGD. INDICATIONS: 1. Anemia. 2. Gastrointestinal bleed. MEDICATIONS: Propofol drip. COMPLICATIONS: None. DESCRIPTION OF PROCEDURE: The patient was __ Medical Intensive Care Unit. The patient had the procedure discussed with his . All risks, complications, and benefits were discussed after which consent was gotten. The patient is done in supine position. Mouth block was placed in the patient's oral cavity. After adequate sedation medication as above, endoscope was introduced into the mouth and brought to level of the second portion of duodenum. Retroflexion view performed. The patient's vital signs remained stable. FINDINGS: There was a small hiatal hernia at GE junction. Mild gastritis noted in the stomach. Stomach otherwise appeared normal. The duodenum appeared to be normal. Retroflexion view performed in the stomach showed no other pathology other than noted above. The patient tolerated the procedure well. No complications during the procedure. IMPRESSION: 1. Hiatal hernia. 2. Mild gastritis. 3. Otherwise, normal EGD. RECOMMENDATIONS: 1. PPI daily. 2. Colonoscopy followup. 3. Further recommendation based on colonoscopy results. JOB# [id number] CAB/NTS
[2020-07-15] MEDS: metroNIDAZOLE/NS 500 MG/100 ML 500 MG/100 ML BAG IV SCH (20:30)
--- NOTE | 2020-07-15 22:25 | Operative Report ---
PROCEDURE: Colonoscopy. INDICATIONS: 1. Gastrointestinal bleed. 2. Anemia. MEDICATIONS: Propofol per VENEER PULLER. COMPLICATIONS: None. DESCRIPTION OF PROCEDURE: The patient was done in the Medical Intensive Care Unit. The patient had the procedure discussed with his at length. All risks, complications, and benefits discussed after which consent was gotten from the for the procedure performed. The patient was placed in the supine position. A rectal exam performed prior to insertion of the scope. After adequate sedation medication as above, scope was introduced into the rectum and brought to level of cecum. Colonoscope was then removed and mucosa visualized. Prep quality was extremely poor. The patient's vital signs remained stable throughout the procedure. FINDINGS: This is an extremely poor procedure and so cannot rule out small to medium lesions. There is noted also to be old blood throughout the colon. No active bleeding was noted. Sigmoid diverticulosis was noted. Again, no active bleeding was noted. Internal hemorrhoids were noted of medium size. The patient tolerated the procedure well. No complications during the procedure. IMPRESSION: 1. Old blood throughout the colon, but no signs of active bleeding. 2. Poor prep throughout, decreased visualization, so cannot rule out small to medium lesions. 3. Diverticulosis in the ascending colon and sigmoid colon of medium size. Otherwise, no other pertinent findings. RECOMMENDATIONS: 1. Follow hematocrit and transfuse as needed. 2. Continue PPI IV. 3. N.p.o. 4. We will follow. 5. If signs of active bleeding, CTA. JOB# [id number] [facility]
[2020-07-16] MEDS: FLEET ENEMA PR SCH ×7 (01:00→07:30)
[2020-07-16 01:28] LABS: Hematocrit 24.7 % (35.5-45.6); Hemoglobin 8.5 gm/dl (11.8-15.2)
[2020-07-16] MEDS: fentaNYL DRIP Premix 2,000 MCG/100 ML BAG IV SCH ×4 (02:52→21:34)
[2020-07-16] MEDS: NORepinephrine/NS 4 MG-250 ML 4 MG/250 ML BAG IV SCH ×3 (04:28→18:10)
[2020-07-16] MEDS: VASOPRESSIN 20 UNIT in SODIUM CHLORIDE 0.9% 100 ML IV SCH ×2 (04:30→14:50)
[2020-07-16] MEDS: PANTOPRAZOLE 80 MG in SODIUM CHLORIDE 0.9% 100 ML IV SCH ×2 (04:31→14:22)
[2020-07-16 05:18] LABS: Hematocrit 25.4 % (35.5-45.6); Hemoglobin 8.6 gm/dl (11.8-15.2); Mean Corpuscular HGB Conc 34 % (32-34); Mean Corpuscular Volume 89 fl (84-94); Platelet Count 279 K/mm3 (140-440); Red Blood Count 2.86 M/mm3 (3.65-5.03); Red Cell Distribution Width 15.6 % (13.2-15.2)
[2020-07-16 05:25] LABS: Calcium 6.8 mg/dL (8.4-10.2)
[2020-07-16] MEDS: metroNIDAZOLE/NS 500 MG/100 ML 500 MG/100 ML BAG IV SCH ×3 (05:33→20:00)
[2020-07-16] MEDS ORDERED: DEXTROSE 50% IN WATER (25GM) 50 ML SYRINGE IV ONE (05:45)
[2020-07-16] MEDS: INSULIN REGULAR, HUMAN 100 UNITS/1 ML SUB-Q SCH ×3 (07:33→18:11)
[2020-07-16 07:40] LABS: Hematocrit 24.4 % (35.5-45.6); Hemoglobin 7.9 gm/dl (11.8-15.2)
[2020-07-16] MEDS: SODIUM BICARBONATE 650 MG TAB PO SCH ×3 (08:50→21:35)
[2020-07-16] MEDS: CEFEPIME/NS 2 GM/100 ML 2 GM/100 ML BAG IV SCH (08:52)
[2020-07-16] MEDS: QUEtiapine 200 MG TAB PO SCH ×2 (10:04→21:35)
[2020-07-16] MEDS: ASCORBIC ACID 250 MG TAB PO SCH ×2 (10:04→21:35)
[2020-07-16] MEDS: POLYETHYLENE GLYCOL 3350 17 GM POWDER PO SCH (10:04)
[2020-07-16] MEDS: DOCUSATE SODIUM 100 MG/10 ML ORAL LIQD FEEDTUBE SCH ×2 (10:04→21:34)
[2020-07-16] MEDS: ZINC SULFATE 220 MG CAP PO SCH ×2 (10:05→21:35)
[2020-07-16] MEDS: CHOLECALCIFEROL (VIT D3) 1000 UNIT (25 mcg) TAB PO SCH (10:05)
--- NOTE | 2020-07-16 10:35 | Progress Note ---
Assessment and Plan Assessment and plan: 59-year-old white male who was admitted for pneumonia secondary to Covid with associated respiratory failure and sepsis. Severe septic shock COVID-19 pneumonia Acute metabolic encephalopathy Acute hypoxic respiratory failure Acute kidney injury likely secondary to acute tubular necrosis which progressed to hemodialysis SVT/proximal atrial fibrillation Elevated LFTs Hyperkalemia Severe Anemia likely due to severe sepsis had declining renal function Morbid obesity 06/18: Patient got intubated overnight. Patient was placed on BiPAP to maintain oxygenation with 100% FiO2 but apparently he found to take off his argueta which made his oxygen saturation go down at 60s/50s and patient was found altered mental status. Code met was called immediately. Patient was transferred to ICU and intubated, patient currently on 2 pressors, intubated with 100% FiO2, renal function noted to be decline, nephrology consulted. Discussed with [place] physician Dr. Thompson and requested call back on Saturday. Poor prognosis, continue to monitor with aggressive supportive care. Also called family/ to update clinical status. 06/19: Repeat COVID test was positive. cont cefepime, remdesivir per ID recommendation. follow inflammatory markers, cbc, bmp. placed on heparin drip for atrial fib 06/20: Remains on mechanical ventilation, on 2 pressors, on heparin drip. discussed with and daughter by phone. Renal function declining. cont supportive care for now. 06/21: Renal function cont to decline, urine outpt sig decreased. started on lasix 80mg BID, plan to follow urine output, if no improvement patient need to start on HD. called and daughter today. updated all clinical details 06/22: Renal function continues to decline with uremia and hyperkalemia. Will need to proceed with hemodialysis. Nephrology discussed with the family and they agrees for the hemodialysis. Patient remains on pressor support and mechanical ventilation. Vas-Cath placed today by vascular started on hemodialysis today. 06/23: 2nd round of HD today, remains on 2 pressors. per RN not tolerating TF, has no record of BM since 06/18. start on stool softner. follow cbc/bmp. updated family( and daughter) by phone -all question answered to best of my knowledge and to their satisfaction. Patient remains critically ill with a very poor prognosis. 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 06/25/2020 continue supportive care very poor prognosis 06/26/2020 continue supportive care very poor prognosis family updated 06/27/2020 continue supportive care and weaning if possible 06/28/2020 continue supportive care, talk with at length 06/29: Resumed care. K level persistently high. give one dose of bicarbonate, plan for HD today, recheck k after HD. updated family by phone 06/30: updated family by phone. Patient remains on amiodarone drip and vasopressin. Getting HD at the bedside. Tolerating tube feeding at low rate. 07/01: Hb dropped to 6.4 today, transfuse one unit PRBC. patient is off pressor today, remains on amioderone. cont to monitor 07/02: Called patient and updated clinical details. Patient remains critically ill, still intubated. Patient's oxygen requirement and PEEP pressure has went down. Continue weaning protocol per critical care recommendation. Patient remains off pressor. Continue to wean off from amiodarone and plan to rate control with p.o. medications. Tolerating tube feeding. H&H stable today. Order for stool for occult blood. Monitor H&H and BMP. Continue to follow clinically 07/03: discussed with [place] physician today. Patient back on 100percent Fio2 since last night. planned for emergent Hd today. spiked fever, start IV C efepime + Vancomycin renally dosed. Restarted Levophed today, remains on amiodarone drip. Patient family was updated by critical care attending today. 07/04: Patient has hemodialysis yesterday and also plan for today for volume overload and pulmonary edema. Patient currently on 80% FiO2. Remains on Levophed and amiodarone. Hemoglobin dropped to 6.7 without any evidence of active bleeding. LFTs remain stable. Repeat Covid test on 06/30 and 07/03 remains positive. Will transfuse another unit of packed RBC today. Called family for update -explained family that patient is critically ill with very poor prognosis. 07/05: Patient on 70% FiO2 with PEEP of 14. h/h stable after transfusion. hyp erkalemia improved, cont sodiumbicarbonate pill with TF. follow BMP. off levophed today, remains on amioderone. poor prognosis. 07/06: Patient remains on amiodarone drip, maintaining BP without any pressor. FiO2 requirement trended down to 60% with PEEP of 14. Continue to follow clinically. Plan to wean off amiodarone drip as tolerated. Wean off from sedation as tolerated. Updated family. Patient remains critically ill with poor prognosis. 07/07: Called family for update. Off amiodarone drip today, patient also off pressor. FiO2 requirement trended up again to 80-100%. Continue to provide supportive care, monitor clinically. Having difficulty to wean off from the vent support. Patient is persistently positive for COVID-19 and COVID-19 antibody is nonreactive. Patient remains critically ill with very poor prognosis. 07/08: Continue supportive care. 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 Prognosis remains guarded to poor. Management per team. Critical care time 35-minute 07/09/20 patient is tachycardic. Heart rate 121. Hemoglobin 7.3. Patient is having hemodialysis. Continue supportive care. Patient having difficulty to wean off from the vent support. Prognosis is poor. Nephrology and cardiology follow-up. Recheck CBC BMP in the morning. Continue current management. patient seen and examined, remains on full ventilator patient is doing better. Patient is off pressor. heart rate 123. Hemoglobin 6.8 and hematocrit 20.7. WBC is 18.1. Continue supportive care. Patient having difficulty to wean off from the vent support. We will started on Zosyn 4.5 g IV every 8 hours. Will transfuse 1 unit of packed red blood cell. Prognosis is poor. Nephrology and cardiology follow up. Recheck CBC BMP in the morning 07/11: remains off vasopressor, h/h appropriately responded to 1 unit PRBC. HD today. Remain on MV with fiO2 at 70%. peep 10. No acute events reported overnight. 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 Vent settings: CMV 500/25/14/0.60. Patient remains hypercarbic on ABG 07/13: Patient remains on vasopressin, fentanyl and propofol with rectal tube in place. This morning some examination patient was on assist control 25/500/14/0.60. Patient received hemodialysis today. No acute events reported overnight. 07/14: Remains on vasopressin, fentanyl and propofol with tube in place. Rectal tube in place with noted blood clots, GI consulted, on 07/13 H/H dropped from 8.7/27 to 7.4/22 and anticoagulation discontinued. This morning I spoke to his who still wishes for the patient to remain a full code despite update with continued use of vasopressor (vasopressin), current ventilatory support (CMV 500/25/14/0.60) and recent development of rectal bleeding. Patient's family requests an update from CCM and GI. Cardio changed amio from PO to IV given elevated HR 07/15: Today the patient received a total of 5 units of PRBC and is still having bleeding through his rectal tube. CTA abdomen/pelvis is pending, patient remains on Levophed, fentanyl, propofol, vasopressin and received hemodialysis today. He was also hyperkalemic today to 6 and he received insulin and D50. Extensive conversation with family conducted by CCM and hospitalist and his and 2 daughters did visit him today at the bedside. 07/16: Continues with full ventilatory support. FMS still inplace with some loose bloody stool. Still on multiple pressors, Bilateral swollen and generalized anascar. Monitor H/H and transfuse as needed. Monitor K level. Discussed with family at bedside yesterday. -Vasopressor support (CCM and ID consulted, appreciate recommendations) -S/p dexamethasone and remdesivir therapy, contact/droplet isolation, remains on ventilation (wean as tolerated), vitamin C/vitamin D/zinc, anticoagulation per protocol, trend inflammatory markers -CT head with no acute process, supportive care -Wean mechanical ventilation as tolerated, VAP bundle -HD per nephrology -Amiodarone p.o. (remains in A. fib/a flutter) change to IV amiodarone, cardiology aware -Transfuse for hemaglobin less than 7, s/p 9 units PRBC during stay -Serial hemoglobin -Repeat BMP in a.m. -GI consulted, appreciate recommendations -CT abdomen/pelvis pending DVT prophylaxis: GI prophylaxis, heparin subcu, SCDs to bilateral LE while in bed Disposition: ICU ?placement ?trach/peg ?Ltach The high probability of a clinically significant, sudden or life threatening deterioration of the [multi] system(s) required my full and direct attention, intervention and personal management. The aggregate critical care time was [35] minutes. This time is in addition to time spent performing reported procedures but includes the following: [x] Data Review and interpretation [x] Patient assessment and monitoring of vital signs [x] Documentation [x] Medication orders and management History Interval history: patient seen and examined, remains on full ventilator, remains on multiple pressors. Underwent colonoscopy yesterday but noted poor prep. Hospitalist Physical - Physical exam Narrative exam: General appearance: Present: severe distress, well-nourished, generalized edema - EENT ENT: poor dentition, ulcerations - Neck Neck: Absent: masses or JVD, carotid bruits - Respiratory Respiratory effort: on full ventilator support Respiratory: bilateral: diminished - Cardiovascular Rhythm: irregularly irregular Heart Sounds: Present: S1 & S2. Absent: systolic murmur, diastolic murmur - Extremities Extremities: no ischemia, pulses intact, pulses symmetrical Extremity abnormal: cyanosis - Peripheral Assessment Bilateral Generalized Edema Type: Pitting Edema Degree: 3+ Capillary Refill: < 3 seconds Skin Temperature: Cool Peripheral Pulses: within normal limits - Abdominal General gastrointestinal: soft, non-tender, non-distended, hypoactive bowel sounds, absent bowel sounds - Integumentary Integumentary: Present: dry, pale - Psychiatric Psychiatric: other (Sedated) - Neurologic Neurologic: other (Sedated) - Constitutional Vitals: Temp Pulse Resp BP Pulse Ox 98.7 F 121 H 28 H 111/58 94 07/16/20 03:36 07/16/20 10:00 07/16/20 10:00 07/16/20 10:00 07/16/20 10:00 General appearance: Present: severe distress, well-nourished HEART Score - HEART Score Troponin: Troponin T < 0.010 ng/mL (0.00-0.029) 06/17/20 12:33 Results - Labs CBC & Chem 7: 07/16/20 07:29 07/16/20 04:28 Labs: Laboratory Last Values WBC 48.9 K/mm3 (4.5-11.0) H* 07/16/20 04:28 RBC 2.86 M/mm3 (3.65-5.03) L 07/16/20 04:28 Hgb 7.9 gm/dl (11.8-15.2) L 07/16/20 07:29 Hct 24.4 % (35.5-45.6) L 07/16/20 07:29 MCV 89 fl (84-94) 07/16/20 04:28 MCH 30 pg (28-32) 07/16/20 04:28 MCHC 34 % (32-34) 07/16/20 04:28 RDW 15.6 % (13.2-15.2) H 07/16/20 04:28 Plt Count 279 K/mm3 (140-440) 07/16/20 04:28 Lymph % (Auto) 5.6 % (13.4-35.0) L 07/12/20 03:40 [place] % (Auto) 7.4 % (0.0-7.3) H 07/12/20 03:40 Eos % (Auto) 2.8 % (0.0-4.3) 07/12/20 03:40 Baso % (Auto) 0.3 % (0.0-1.8) 07/12/20 03:40 Lymph # (Auto) 1.4 K/mm3 (1.2-5.4) 07/12/20 03:40 [place] # (Auto) 1.8 K/mm3 (0.0-0.8) H 07/12/20 03:40 Eos # (Auto) 0.7 K/mm3 (0.0-0.4) H 07/12/20 03:40 Baso # (Auto) 0.1 K/mm3 (0.0-0.1) 07/12/20 03:40 Add Manual Diff Complete 07/15/20 08:21 Total Counted 100 07/15/20 08:21 Seg Neutrophils % Elastic Attacher Overlock 07/14/20 16:44 Seg Neuts % (Manual) 89.0 % (40.0-70.0) H 07/15/20 08:21 Band Neutrophils % 7.0 % 07/14/20 16:44 Lymphocytes % (Manual) 7.0 % (13.4-35.0) L 07/15/20 08:21 Reactive Lymphs % (Man) 1.0 % 06/23/20 04:00 Monocytes % (Manual) 4.0 % (0.0-7.3) 07/15/20 08:21 Eosinophils % (Manual) 4.0 % (0.0-4.3) 07/11/20 06:52 Metamyelocytes % 7.0 % 07/14/20 16:44 Myelocytes % 2.0 % 07/10/20 03:55 Nucleated RBC % Not Reportable 07/15/20 08:21 Seg Neutrophils # 20.4 K/mm3 (1.8-7.7) H 07/12/20 03:40 Seg Neutrophils # Man 40.5 K/mm3 (1.8-7.7) H 07/15/20 08:21 Band Neutrophils # 0.0 K/mm3 07/15/20 08:21 Lymphocytes # (Manual) 3.2 K/mm3 (1.2-5.4) 07/15/20 08:21 Abs React Lymphs (Man) 0.0 K/mm3 07/15/20 08:21 Monocytes # (Manual) 1.8 K/mm3 (0.0-0.8) H 07/15/20 08:21 Eosinophils # (Manual) 0.0 K/mm3 (0.0-0.4) 07/15/20 08:21 Basophils # (Manual) 0.0 K/mm3 (0.0-0.1) 07/15/20 08:21 Metamyelocytes # 0.0 K/mm3 07/15/20 08:21 Myelocytes # 0.0 K/mm3 07/15/20 08:21 Promyelocytes # 0.0 K/mm3 07/15/20 08:21 Blast Cells # 0.0 K/mm3 07/15/20 08:21 Pathologist Review Not Reportable 06/26/20 05:47 WBC Morphology Not Reportable 07/15/20 08:21 Hypersegmented Neuts Not Reportable 07/15/20 08:21 Hyposegmented Neuts Not Reportable 07/15/20 08:21 Hypogranular Neuts Not Reportable 07/15/20 08:21 Smudge Cells Not Reportable 07/15/20 08:21 Toxic Granulation Not Reportable 07/15/20 08:21 Toxic Vacuolation Not Reportable 07/15/20 08:21 Dohle Bodies Not Reportable 07/15/20 08:21 Pelger-Huet Anomaly Not Reportable 07/15/20 08:21 Carlito Rods Not Reportable 07/15/20 08:21 Platelet Estimate Appears normal 07/15/20 08:21 Clumped Platelets Not Reportable 07/15/20 08:21 Plt Clumps, EDTA Not Reportable 07/15/20 08:21 Large Platelets Not Reportable 07/15/20 08:21 Giant Platelets Rare 07/15/20 08:21 Platelet Satelliting Not Reportable 07/15/20 08:21 Plt Morphology Comment Not Reportable 07/15/20 08:21 RBC Morphology Not Reportable 07/15/20 08:21 Dimorphic RBCs Not Reportable 07/15/20 08:21 Polychromasia Not Reportable 07/15/20 08:21 Hypochromasia Not Reportable 07/15/20 08:21 Poikilocytosis Few 07/15/20 08:21 Anisocytosis Not Reportable 07/15/20 08:21 Microcytosis Not Reportable 07/15/20 08:21 Macrocytosis Rare 07/15/20 08:21 Spherocytes Not Reportable 07/15/20 08:21 Pappenheimer Bodies Not Reportable 07/15/20 08:21 Sickle Cells Not Reportable 07/15/20 08:21 Target Cells Not Reportable 07/15/20 08:21 Tear Drop Cells Not Reportable 07/15/20 08:21 Ovalocytes Not Reportable 07/15/20 08:21 Stomatocytes Rare 07/10/20 03:55 Helmet Cells Not Reportable 07/15/20 08:21 [place] Bodies Not Reportable 07/15/20 08:21 [place] Rings Not Reportable 07/15/20 08:21 [place]ier Cells Not Reportable 07/15/20 08:21 Bite Cells Not Reportable 07/15/20 08:21 Crenated Cell Not Reportable 07/15/20 08:21 Elliptocytes Not Reportable 07/15/20 08:21 Acanthocytes (Spur) Not Reportable 07/15/20 08:21 Rouleaux Not Reportable 07/15/20 08:21 Hemoglobin C Crystals Not Reportable 07/15/20 08:21 Schistocytes Not Reportable 07/15/20 08:21 Malaria parasites Not Reportable 07/15/20 08:21 Victoriano Bodies Not Reportable 07/15/20 08:21 Hem Pathologist Commnt No 07/15/20 08:21 PT 17.6 Sec. (12.2-14.9) H 07/15/20 08:21 INR 1.46 (0.87-1.13) H 07/15/20 08:21 APTT 28.5 Sec. (24.2-36.6) 06/26/20 05:47 Fibrinogen 419 mg/dl (211-480) 07/15/20 08:21 D-Dimer 6608.00 ng/mlDDU (0-234) H 07/03/20 14:50 Heparin Anti-Xa Level < 0.10 U.I./ml (0.3-0.7) L 06/26/20 01:30 ABG pH 7.409 (7.320-7.450) 07/15/20 04:13 POC ABG pCO2 38.5 mmHg (32.0-48.0) 07/15/20 04:13 ABG pCO2 56.4 mm Hg 07/05/20 04:30 POC ABG pO2 86.7 mmHg (83-108) 07/15/20 04:13 ABG pO2 151.9 mm Hg (80.0-90.0) H 07/05/20 04:30 POC ABG HCO3 23.8 07/15/20 04:13 ABG HCO3 26.8 mmol/L (20.0-26.0) H 07/05/20 04:30 ABG O2 Saturation 98.7 % (95.0-99.0) 07/05/20 04:30 ABG O2 Content 5.0 (0.0-44) 07/04/20 05:20 POC ABG Base Excess -0.8 07/15/20 04:13 ABG Base Excess 0.1 mmol/L (-2.0-3.0) 07/05/20 04:30 ABG Hemoglobin 6.0 (12.0-17.5) L 07/15/20 04:13 ABG Oxyhemoglobin 95.1 (94-98) 07/15/20 04:13 ABG Carboxyhemoglobin 1.7 % (0.0-5.0) 07/05/20 04:30 ABG Methemoglobin 0.3 (0.0-1.5) 07/15/20 04:13 ABG Sodium 130.3 mmol/L (136.0-145.0) L 07/15/20 04:13 ABG Potassium 5.8 mmol/L (3.40-4.50) H 07/15/20 04:13 ABG Chloride 99.0 mmol/L (98-107) 07/15/20 04:13 ABG Glucose 122 mg/dL (65-95) H 07/15/20 04:13 Oxyhemoglobin 96.5 % (95.0-99.0) 07/05/20 04:30 Carboxyhemoglobin 1.0 (0.5-1.5) 07/15/20 04:13 FiO2 60.0 07/15/20 04:13 Sodium 136 mmol/L (137-145) L 07/16/20 04:28 Potassium 5.4 mmol/L (3.6-5.0) H 07/16/20 04:28 Chloride 95.0 mmol/L (98-107) L 07/16/20 04:28 Carbon Dioxide 24 mmol/L (22-30) 07/16/20 04:28 Anion Gap 22 mmol/L 07/16/20 04:28 BUN 85 mg/dL (9-20) H 07/16/20 04:28 Creatinine 3.4 mg/dL (0.8-1.3) H 07/16/20 04:28 Estimated GFR 22 ml/min 07/16/20 04:28 BUN/Creatinine Ratio 25 % 07/16/20 04:28 Glucose 66 mg/dL (75-100) L 07/16/20 04:28 POC Glucose 73 mg/dL (70-105) 07/16/20 05:33 Lactic Acid 1.40 mmol/L (0.7-2.0) 07/13/20 08:48 Calcium 6.8 mg/dL (8.4-10.2) L 07/16/20 04:28 Phosphorus 9.40 mg/dL (2.5-4.5) H 06/30/20 03:50 Magnesium 2.70 mg/dL (1.7-2.3) H 06/18/20 20:33 Ferritin 1171.0 ng/mL (30.0-300.0) H 07/03/20 14:50 Total Bilirubin 0.70 mg/dL (0.1-1.2) 07/13/20 06:59 Direct Bilirubin 0.5 mg/dL (0-0.2) H 07/05/20 08:21 Indirect Bilirubin 0.1 mg/dL 07/05/20 08:21 AST 61 units/L (5-40) H 07/13/20 06:59 ALT 85 units/L (7-56) H 07/13/20 06:59 Alkaline Phosphatase 144 units/L (35-129) H 07/13/20 06:59 Lactate Dehydrogenase 525 units/L (91-180) H 07/03/20 14:50 Total Creatine Kinase 618 units/L (55-170) H 06/29/20 Unknown Troponin T < 0.010 ng/mL (0.00-0.029) 06/17/20 12:33 C-Reactive Protein 31.50 mg/dL (0.00-1.30) H 07/03/20 14:50 Total Protein 5.4 g/dL (6.3-8.2) L 07/13/20 06:59 Albumin 2.0 g/dL (3.9-5) L 07/13/20 06:59 Albumin/Globulin Ratio 0.6 % 07/13/20 06:59 Triglycerides 246 mg/dL (2-149) H 07/12/20 04:00 Procalcitonin 6.05 ng/mL (<0.15) 07/13/20 06:59 Arterial Blood Glucose 122 mg/dL (65-95) H 07/15/20 04:13 Arterial Blood Ionized Calcium 4.2 mg/dL (4.6-5.3) L 07/15/20 04:13 Urine Color Yellow (Yellow) 06/17/20 15:57 Urine Turbidity Clear (Clear) 06/17/20 15:57 Urine pH 6.0 (5.0-7.0) 06/17/20 15:57 Ur Specific [place] 1.019 (1.003-1.030) 06/17/20 15:57 Urine Protein 30 mg/dl mg/dL (Negative) 06/17/20 15:57 Urine Glucose (UA) Neg mg/dL (Negative) 06/17/20 15:57 Urine Ketones Neg mg/dL (Negative) 06/17/20 15:57 Urine Blood Sm (Negative) 06/17/20 15:57 Urine Nitrite Neg (Negative) 06/17/20 15:57 Ur Reducing Substances Not Reportable 06/17/20 15:57 Urine Bilirubin Neg (Negative) 06/17/20 15:57 Urine Ictotest Not Reportable 06/17/20 15:57 Urine Urobilinogen < 2.0 mg/dL (<2.0) 06/17/20 15:57 Ur Leukocyte Esterase Neg (Negative) 06/17/20 15:57 Urine WBC (Auto) 1.0 /HPF (0.0-6.0) 06/17/20 15:57 Urine RBC (Auto) 2.0 /HPF (0.0-6.0) 06/17/20 15:57 Urine Mucus Few /HPF 06/17/20 15:57 Urine Creatinine 192.4 mg/dL (0.1-20.0) H 06/18/20 15:00 Urine Sodium 28 mmol/L 06/18/20 15:00 Urine Chloride 31.1 mmolL (110-250) L 06/18/20 15:00 Nasal Screen MRSA (PCR) Negative (Negative) 06/19/20 10:38 Vancomycin Trough 22.7 ug/mL (5.0-20.0) H 06/20/20 08:25 Random Vancomycin 13.5 ug/mL (0-40.0) 07/16/20 07:17 Coronavirus (PCR) Positive (Negative) A 07/03/20 10:10 Hepatitis A IgM Ab Non-reactive (NonReactive) 06/22/20 17:00 Hep Bs Antigen Non-reactive (Negative) 06/22/20 17:00 Hep B Core IgM Ab Non-reactive (NonReactive) 06/22/20 17:00 Hepatitis C Antibody Non-reactive (NonReactive) 06/22/20 17:00 SARS-CoV-2 IgG Ab Nonreactive (NonReactive) 07/04/20 05:20 Blood Type A POSITIVE 07/13/20 16:46 Antibody Screen Negative 07/13/20 16:46 Crossmatch See Detail 07/13/20 16:46 Microbiology: Microbiology 07/15/20 08:21 Peripheral/Venous Blood Culture - Preliminary NO GROWTH AFTER 24 HOURS 07/15/20 08:38 Peripheral/Venous Blood Culture - Preliminary NO GROWTH AFTER 24 HOURS 07/15/20 Unknown Tracheal Aspirate Sputum Culture - Preliminary 07/15/20 08:21 Peripheral/Venous Blood Fungal Culture - Preliminary Culture in Progress - Diagnostic Impressions Diagnostic Impressions: Echocardiogram 06/29/20 06:00 Transthoracic Echocardiogram Indication: A-fib BP: 105/47 HR: 99 Conclusions *The study is technically very difficult and limited due to poor acoustic windows. *Global left ventricular wall motion and contractility are within normal limits. *The estimated ejection fraction is 55-60%. *There is no pericardial effusion. Findings Procedure Info: The study quality is technically difficult. The study is technically limited due to poor acoustic windows. Left Ventricle: Global left ventricular wall motion and contractility are within normal limits. Global left ventricular systolic function is normal. The estimated ejection fraction is 55-60%. Left Atrium: The left atrium is not well visualized. Right Ventricle: The right ventricle is not well visualized. Right Atrium: The right atrium is not well visualized. Aortic Valve: The aortic valve is not well visualized. Mitral Valve: The mitral valve is not well visualized. Tricuspid Valve: The tricuspid valve is not well visualized. Pulmonic Valve: The pulmonic valve is not well visualized. Pericardium: There is no pericardial effusion. Venous: There is no change in the dimension of the inferior vena cava with respiration consistent with markedly increased right atrial pressure. [place]/IV: Voiding Method Incontinent Active Medications - Current Medications Current Medications: Generic Name Dose Route Start Last Admin Trade Name Freq PRN Reason Stop Dose Admin Acetaminophen 650 mg 06/17/20 14:17 07/03/20 09:16 Acetaminophen 325 Mg Tab PO 650 mg Q4H PRN Administration Pain MILD(1-3)/Fever >100.5/ROBERTS Lipase/Protease/Amylase 1 each 06/19/20 12:15 Lipase 10,500/Protease 25,000/Amylase 43,750 (Units) Dr Kulkarni FEEDTUBE PRN PRN For Clogged Feeding Tube Ascorbic Acid 250 mg 06/17/20 22:00 07/16/20 10:04 Ascorbic Acid 250 Mg Tab PO Not Given BID CONNOR Cholecalciferol 1,000 unit 06/18/20 10:00 07/16/20 10:05 Cholecalciferol (Vit D3) 1000 Unit (25 Mcg) Tab PO Not Given DAILY CONNOR Docusate Sodium 100 mg 06/23/20 15:00 07/16/20 10:04 Docusate Sodium 100 Mg/10 Ml Oral Liqd FEEDTUBE Not Given BID CONNOR Fentanyl 50 mcg 06/18/20 01:02 07/09/20 00:20 Fentanyl 100 Mcg/2 Ml Inj IV 50 mcg Q10MIN PRN Administration ANALGESIA Heparin Sodium (Porcine) 5,000 unit 06/22/20 12:53 06/30/20 13:36 Heparin 10,000 Unit/1 Ml Vial IV 5,000 unit PAM PRN Administration hemodialysis Hydrophilic Ointment 1 applic 06/17/20 22:52 07/12/20 20:22 Lip Therapy Vaseline TP 1 applic Q2HR PRN Administration Dry Lips Propofol 1,000 mg in 100 mls @ 3.402 mls/hr 06/18/20 01:00 07/16/20 08:51 Diprivan 10 Mg/Ml IV 10 mcg/kg/min TITR CONNOR 6.804 mls/hr Administration Protocol 5 MCG/KG/MIN Fentanyl Citrate 2,000 mcg in 100 mls @ 8 mls/hr 06/18/20 02:00 07/16/20 08:50 Fentanyl Drip Premix IV 2 mcg/kg/hr TITR CONNOR 16 mls/hr Administration Protocol 1 MCG/KG/HR Norepinephrine 4 mg in 250 mls @ 7.5 mls/hr 07/08/20 02:06 07/16/20 10:03 Levophed Drip 4 Mg/Ns 250 Ml IV 10 mcg/min TITR CONNOR 37.5 mls/hr Titration Protocol 2 MCG/MIN Vasopressin 20 unit/ Sodium 101 mls @ 9.09 mls/hr 07/11/20 11:00 07/16/20 04:30 Chloride IV 0.03 units/min TITR CONNOR 9.09 mls/hr Administration Protocol 0.03 UNITS/MIN Amiodarone HCl 900 mg/ 500 mls @ 33.333 mls/hr 07/14/20 12:30 07/15/20 11:10 Dextrose IV 0.5 mg/min DIRECT CONNOR 16.667 mls/hr Administration Protocol 1 MG/MIN Pantoprazole Sodium 80 mg/ 100 mls @ 10 mls/hr 07/15/20 08:00 07/16/20 04:31 Sodium Chloride IV 8 mg/hr DIRECT CONNOR 10 mls/hr Administration 8 MG/HR Cefepime HCl 2 gm in 100 mls @ 200 mls/hr 07/15/20 08:00 07/16/20 08:52 Cefepime/Ns 2 Gm/100 Ml IV 200 mls/hr Q24H CONNOR Administration Protocol Sodium Chloride 100 mls @ 999 mls/hr 07/15/20 14:18 Nacl 0.9% IV PAM PRN Hypotension Metronidazole 500 mg in 100 mls @ 100 mls/hr 07/15/20 20:00 07/16/20 05:33 Flagyl 500 Mg/100 Ml IV 100 mls/hr Q8H CONNOR Administration Protocol Insulin Human Regular 0 units 06/18/20 12:00 07/16/20 07:33 Insulin Regular, Human 100 Units/1 Ml SUB-Q Not Given Q6HR [facility] Protocol Multi-Ingred Cream/Lotion/Oil/Oint 1 applic 06/17/20 22:52 07/12/20 20:22 Mineral Oil/Petrolatum, White Ophth Oint 3.5 Gm OU 1 applic Q4HR PRN Administration Dry Eye(s) Ondansetron HCl 4 mg 06/17/20 14:17 Ondansetron 4 Mg/2 Ml Inj IV Q8H PRN Nausea And Vomiting Polyethylene Glycol 17 gm 06/23/20 15:00 07/16/20 10:04 Polyethylene Glycol 3350 17 Gm Powder PO Not Given QDAY [facility] Quetiapine Fumarate 200 mg 06/28/20 13:00 07/16/20 10:04 Quetiapine 200 Mg Tab PO Not Given BID CONNOR Simple Syrup 15 ml 06/19/20 12:15 Simple Syrup 15 Ml FEEDTUBE PRN PRN Hypoglycemia Simple Syrup 30 ml 06/19/20 12:15 Simple Syrup 15 Ml FEEDTUBE PRN PRN Hypoglycemia Sodium Bicarbonate 325 mg 06/19/20 12:15 07/11/20 20:00 Sodium Bicarbonate 325 Mg Tab FEEDTUBE 325 mg PRN PRN Administration For Clogged Feeding Tube Sodium Bicarbonate 650 mg 07/04/20 10:00 07/16/20 08:50 Sodium Bicarbonate 650 Mg Tab PO 650 mg TID CONNOR Administration Sodium Chloride 10 ml 06/17/20 22:00 07/16/20 10:05 Sodium Chloride 0.9% 10 Ml Flush Syringe IV 10 ml BID CONNOR Administration Sodium Chloride 10 ml 06/17/20 14:17 Sodium Chloride 0.9% 10 Ml Flush Syringe IV PRN PRN LINE FLUSH Sodium Polystyrene Sulfonate 15 gm 07/03/20 11:19 07/05/20 10:36 Sodium Polystyrene 15 Gm/60 Ml Oral Liqd PO 15 gm Q6HR PRN Administration Hyperkalemia Zinc Sulfate 220 mg 06/17/20 22:00 07/16/20 10:05 Zinc Sulfate 220 Mg Cap PO Not Given BID CONNOR Nutrition/Malnutrition Assess - Dietary Evaluation Nutrition/Malnutrition Findings: Nutrition Notes Start: 06/18/20 10:28 Freq: Status: Active Protocol: Document 07/12/20 11:11 AL (Rec: 07/12/20 11:15 AL [id number]) Co-Sign 07/12/20 11:11 LP Nutrition Notes Initial or Follow up Reassessment Current Diagnosis Acute Kidney Injury,Sepsis, Respiratory Failure Other Pertinent Diagnosis COVID-19 (+), pneu Current Diet Nepro 1.8 at 40ml/hr Labs/Tests Na 134 BUN 79 Cr 3.7 Pertinent Medications Propofol at 6.8 ml/hr (180 kcal) Levophed Vasopressin Height 6 ft Weight 160 kg [place] Body Weight (kg) 80.90 BMI 47.8 Weight change and time frame Wt change of 30 kg noted. Pt on HD Weight Status Obese Subjective/Other Information FU for stable TF. Pt tolerating TF at 40 ml/hr ( goal rate). Percent of energy/protein needs met: 89%/48% Burn Absent Trauma Absent Current % PO Negligible Minimum of two criteria No physical signs of malnutrition #2 Nutrition Diagnosis Overweight/obesity Diagnosis Progress(for reassessment Continues documentation) #1 Nutrition Diagnosis Inadequate oral intake Diagnosis Progress(for reassessment Continues documentation) Is patient on ventilator? Yes Is Patient Ambulatory and/or Out of Bed No REE-([facility]-confined to bed) 2929.632 Kcal/Kg value to use for calculation 12 Approximate Energy Requirements Using 1920 kcal/Kg Calculation Used for Recommendations Kcal/kg Additional Notes Protein needs up to >2 g/kg IBW: 162 g Fluid needs: 1,000 ml + output Nutrition Intervention Change Diet Order: TF Nutrition Support: Nepro 1.8 at 50 ml/hr Flush 215 ml q4h Kcal 2,160 Protein (gm) 97 Fluid (mL) 872 Goal #1 Tolerate TF at goal rate Goal #2 Meet energy and protein needs as best as possible. Anticipated Discharge Needs: Unable to determine at the time. Follow-Up By: 07/19/20 Additional Comments F/U for TF tolerance and vent status
--- NOTE | 2020-07-16 10:38 | Progress Note ---
Assessment and Plan no changes overnight cont iv amio for afib w vvr off anticoagulation due to anemia/gib Subjective Principal diagnosis: ARF; Septic Shock; COVID-19 PNA; Atrial fibrillation; Obesity Interval history: no changes overnight Objective Vital Signs Temp Pulse Pulse Resp BP Pulse Ox Pulse Ox 07/16/20 10:00 121 H 28 H 111/58 94 07/16/20 09:45 123 H 24 104/66 95 07/16/20 09:30 110 H 26 H 112/60 94 07/16/20 09:15 117 H 29 H 112/61 94 07/16/20 09:00 123 H 22 112/61 95 07/16/20 08:45 116 H 27 H 112/67 94 07/16/20 08:30 118 H 28 H 105/68 94 07/16/20 08:15 122 H 30 H 107/54 94 07/16/20 08:11 123 H 107/54 96 07/16/20 08:00 125 H 24 107/54 94 07/16/20 07:45 127 H 27 H 121/61 94 07/16/20 07:30 128 H 26 H 122/68 94 07/16/20 07:16 112 H 25 H 120/67 94 07/16/20 07:00 125 H 27 H 120/67 94 07/16/20 06:45 116 H 26 H 122/62 95 07/16/20 06:30 115 H 23 123/73 95 07/16/20 06:15 115 H 28 H 121/67 97 07/16/20 06:00 130 H 28 H 122/66 95 07/16/20 05:45 128 H 30 H 104/74 95 07/16/20 05:30 123 H 29 H 122/65 95 07/16/20 05:15 119 H 30 H 111/71 96 07/16/20 05:00 120 H 26 H 122/71 96 07/16/20 04:45 120 H 28 H 123/72 95 07/16/20 04:31 122 H 27 H 138/72 96 07/16/20 04:15 120 H 28 H 130/73 93 07/16/20 04:01 124 H 29 H 117/71 93 07/16/20 03:45 120 H 25 H 121/65 91 07/16/20 03:36 98.7 F 07/16/20 03:31 118 H 28 H 131/77 89 07/16/20 03:15 120 H 24 110/67 90 07/16/20 03:12 128 H 119/71 91 07/16/20 03:01 123 H 23 104/65 92 07/16/20 02:45 113 H 21 107/62 91 07/16/20 02:31 113 H 24 99/54 92 07/16/20 02:15 126 H 21 103/63 92 07/16/20 02:01 110 H 24 93/56 90 07/16/20 01:55 111 H 07/16/20 01:45 113 H 21 114/54 91 07/16/20 01:31 116 H 22 105/66 91 07/16/20 01:15 120 H 20 114/61 91 07/16/20 01:01 123 H 24 103/75 91 07/16/20 00:45 118 H 21 111/62 92 07/16/20 00:31 111 H 23 106/57 92 07/16/20 00:15 127 H 20 120/66 92 07/16/20 00:07 112 H 112/63 92 07/16/20 00:01 112 H 22 129/67 92 07/16/20 00:00 98.7 F 111 H 28 H 91 07/15/20 23:45 111 H 24 135/59 92 07/15/20 23:31 123 H 21 118/76 92 07/15/20 23:30 109 H 28 H 91 07/15/20 23:15 114 H 24 143/75 92 07/15/20 23:01 119 H 27 H 175/67 95 07/15/20 22:45 110 H 26 H 171/82 95 07/15/20 22:30 110 H 25 H 152/86 97 07/15/20 22:15 104 H 22 146/93 97 07/15/20 22:00 104 H 23 120/84 96 07/15/20 21:45 99 H 15 133/73 96 07/15/20 21:30 101 H 15 119/72 96 07/15/20 21:15 110 H 16 117/75 96 07/15/20 21:00 109 H 15 131/67 96 07/15/20 20:45 120 H 18 123/75 96 07/15/20 20:30 94 H 17 130/70 97 07/15/20 20:15 119 H 18 119/84 97 07/15/20 20:00 99.0 F 124 H 24 119/65 96 07/15/20 19:45 121 H 21 134/76 96 07/15/20 19:35 117 H 134/76 96 07/15/20 19:30 109 H 20 134/66 96 07/15/20 19:15 110 H 21 147/67 96 07/15/20 19:13 98.4 F 94 H 17 130/70 97 07/15/20 19:00 116 H 21 145/70 96 07/15/20 18:55 111 H 127 H 28 H 91 07/15/20 18:45 111 H 22 136/71 97 07/15/20 18:31 114 H 22 131/72 97 07/15/20 18:15 120 H 23 101/57 96 07/15/20 18:11 122 H 26 H 101/57 93 07/15/20 18:00 114 H 25 H 101/57 94 07/15/20 17:45 115 H 28 H 134/68 94 07/15/20 17:31 123 H 22 134/68 96 07/15/20 17:15 122 H 25 H 100/73 96 07/15/20 17:06 98.4 F 121 H 25 H 100/73 95 07/15/20 17:00 136 H 26 H 100/73 95 07/15/20 16:45 122 H 26 H 111/67 92 07/15/20 16:30 131 H 28 H 108/71 92 07/15/20 16:15 116 H 27 H 99/66 93 07/15/20 16:00 98.4 F 124 H 127 H 27 H 91/64 91 07/15/20 15:45 125 H 27 H 108/68 91 05 15:42 129 H 91/64 93 07/15/20 15:30 131 H 27 H 108/68 94 07/15/20 15:21 124 H 25 H 117/59 93 07/15/20 15:15 117 H 117/59 07/15/20 15:11 121 H 27 H 119/63 95 07/15/20 15:00 133 H 26 H 119/63 97 07/15/20 14:51 133 H 27 H 126/59 94 07/15/20 14:45 122 H 126/59 07/15/20 14:41 113 H 28 H 88/38 88 07/15/20 14:31 123 H 28 H 88/38 90 07/15/20 14:30 120 H 88/34 07/15/20 14:21 119 H 27 H 92/53 89 07/15/20 14:15 121 H 92/53 07/15/20 14:11 126 H 28 H 100/61 89 07/15/20 14:01 122 H 29 H 100/61 91 07/15/20 13:51 122 H 29 H 122/43 91 07/15/20 13:45 126 H 122/43 07/15/20 13:30 120 H 28 H 119/59 97 07/15/20 13:15 98.9 F 124 H 31 H 120/64 96 95 07/15/20 13:00 127 H 27 H 121/58 96 07/15/20 12:50 121 H 29 H 114/49 95 07/15/20 12:41 118 H 27 H 116/52 95 07/15/20 12:31 126 H 30 H 116/52 94 07/15/20 12:15 124 H 42 H 116/60 93 07/15/20 12:09 98.6 F 07/15/20 12:00 126 H 114 H 36 H 111/58 93 07/15/20 11:48 110 H 109/52 93 07/15/20 11:45 109 H 45 H 118/54 95 07/15/20 11:31 134 H 38 H 118/54 96 07/15/20 11:15 114 H 25 H 118/54 96 07/15/20 11:01 125 H 37 H 118/54 95 07/15/20 10:45 114 H 28 H 118/54 96 - Physical Examination General: Other (intubated, lethargic) Neck: Positive: neck supple Neuro: Positive: Other (intubated, lethargic) Abdomen: Positive: Soft Skin: Negative: Rash, Wound Extremities: Present: upper extr. pulses, lower extr. pulses, +1 Edema - Labs and Meds CBC 07/15/20 07/16/20 07/16/20 Range/Units 18:52 01:10 04:28 WBC 48.9 H* (4.5-11.0) K/mm3 RBC 2.86 L (3.65-5.03) M/mm3 Hgb 9.9 L 8.5 L 8.6 L (11.8-15.2) gm/dl Hct 29.8 L D 24.7 L 25.4 L (35.5-45.6) % Plt Count 279 (140-440) K/mm3 07/16/20 Range/Units 07:29 WBC (4.5-11.0) K/mm3 RBC (3.65-5.03) M/mm3 Hgb 7.9 L (11.8-15.2) gm/dl Hct 24.4 L (35.5-45.6) % Plt Count (140-440) K/mm3 Comprehensive Metabolic Panel 07/15/20 07/16/20 Range/Units 18:52 04:28 Sodium 137 136 L (137-145) mmol/L Potassium 5.0 5.4 H (3.6-5.0) mmol/L Chloride 97.9 L 95.0 L (98-107) mmol/L Carbon Dioxide 25 24 (22-30) mmol/L BUN 78 H 85 H (9-20) mg/dL Creatinine 3.1 H 3.4 H (0.8-1.3) mg/dL Glucose 114 H 66 L (75-100) mg/dL Calcium 7.3 L 6.8 L (8.4-10.2) mg/dL - Imaging and Cardiology EKG: report reviewed, image reviewed Echo: report reviewed (TDS, EF 55-60%. ) - EKG Sinus rhythms and dysrhythmias: sinus tachycardia - Allied health notes Allied health notes reviewed: nursing
[2020-07-16] MEDS: AMIODARONE 900 MG in DEXTROSE 5% IN WATER 482 ML IV SCH (14:50)
--- NOTE | 2020-07-16 16:26 | Progress Note ---
Assessment and Plan Acute hypoxemic respiratory failure due to COVID-19 Severe COVID infection Severe Sepsis with shock Bilateral pneumonia Acute kidney injury (GIRISH) with acute tubular necrosis (ATN) Elevated liver enzymes Obesity - permissive hypercapnia - repeat ABG in am - correct potassium per nephrology - repeat BMP in am - trend H&H per G.I. team rec's - continue Protonix drip - keep NPO status till cleared by GI - wean vasopressors for target MAP > 65 mmHg - follow cultures - continue empiric Vanc and Cefepime - continue care as below otherwise; - therapeutic anticoagulation remains on hold - continue HD/UF per nephrology prescription for toxin and volume clearance - keep peep at 14 - continue daily SAT's & SBT's as tolerated - continue tube feeds and advance to goal rate as tolerated - continue HD/UF per nephrology team for toxin and volume clearance - continue bowel regimen - rate control per cardiology team for afib RVR - Continue to wean supplemental oxygen for O2 sats >92% - Monitor blood pressure closely while optimizing sedation,wean vasopressor support for MAP > 65 mmHg - Critical care prone positioning - VAP bundle addressed, aspiration precautions HOB >40 - continue lung protective strategies, permissive hypercapnic acceptable. - continue bronchodilators with pulmonary hygiene per RT - wean per pulmonary driven protocols otherwise - accuchecks with glycemic control per SSI (While critically ill target blood glucose of 140-180 mg/dL; avoid hypoglycemia) - sedation prn for target RASS -1 to -2 - continue enteral nutritional support at goal rate as tolerated - s/p antibiotics per ID recommendations - Monitor liver function test ,avoid hepatotoxic agents - azotemia per nephrology rec's - Avoid nephrotoxins, renally dose all medications, conservative fluid management - continue to avoid benzodiazepines, reduce the possibility of delirium, - prn analgesia per CPOT score - Maintenance of sleep-wake cycle, avoid delirium - Stress ulcer prophylaxis, Famotidine - PT/OT/ROM exercises - Mobility protocols for pressure ulcer prevention - CXR, ABG in am - CBC, CMP in am - Supportive transfusions to keep HgB >7g/dL - Monitor hemodynamics closely - continue other care per attending / other consultants COVID SPECIFIC INTERVENTIONS - s/p steroids: Dexamethasone - completed Remdesivir - monitor inflammatory markers prn - ferritin, D-dimer, CRP, LDH per facility protocol - continue anticoagulation per System Protocol based on d-dimer (on hold due to bleeding) - continue contact and airborne isolation CONDITION: CRITICAL PROGNOSIS: GUARDED CODE STATUS: FULL CODE The high probability of a clinically significant, sudden or life-threatening deterioration of the [respiratory, cardiovascular, hematologic & neurologic] system(s) required my full and direct attention, intervention and personal management. The aggregate critical care time was [32] minutes without overlap. Time includes spent on; [x] Data Review and interpretation [x] Patient assessment and monitoring of vital signs [x] Documentation [x] Medication orders and management He was evaluated in the context of the global COVID-19 pandemic, which necessitated consideration that the patient might be at risk for infection with the virus that causes COVID-19. Institutional protocols and algorithms that pertain to the evaluation of patients at risk for COVID-19 are in a state of rapid change based on information released by regulatory bodies including the CDC and federal and state organizations. These policies and algorithms were followed during the patient's care in the ICU Please note that these policies, procedures and recommendations changed on a rapid basis. Subjective Date of service: 07/16/20 Principal diagnosis: ARF; Septic Shock; COVID-19 PNA; Atrial fibrillation; Obesity Interval history: Patient is seen today for: Ac hypoxemic respiratory failure; COVID-19; Severe Sepsis with shock; Zackery. pneumonia; GIRISH; Elevated liver enzymes; Obesity Seen and examined at bedside; 24hour events reviewed; nursing and respiratory care staff consulted; no adverse overnight events reported to me; resting in bed; remains on MVS; s/p upper and lower endoscopy yeater (no active bleeder, ? diverticular bleed); rectal bleeding has slowed down; FiO2 up to 70%; no emesis or overt aspiration; Objective Vital Signs - 12hr 07/16/20 07/16/20 07/16/20 04:31 04:45 05:00 Temperature Pulse Rate 122 H 120 H 120 H Pulse Rate [ From Monitor] Respiratory 27 H 28 H 26 H Rate Blood Pressure 138/72 123/72 122/71 O2 Sat by Pulse 96 95 96 Oximetry O2 Sat by Pulse Oximetry [ Anterior Bilateral Throughout] 07/16/20 07/16/20 07/16/20 05:15 05:30 05:45 Temperature Pulse Rate 119 H 123 H 128 H Pulse Rate [ From Monitor] Respiratory 30 H 29 H 30 H Rate Blood Pressure 111/71 122/65 104/74 O2 Sat by Pulse 96 95 95 Oximetry O2 Sat by Pulse Oximetry [ Anterior Bilateral Throughout] 07/16/20 07/16/20 07/16/20 06:00 06:15 06:30 Temperature Pulse Rate 130 H 115 H 115 H Pulse Rate [ From Monitor] Respiratory 28 H 28 H 23 Rate Blood Pressure 122/66 121/67 123/73 O2 Sat by Pulse 95 97 95 Oximetry O2 Sat by Pulse Oximetry [ Anterior Bilateral Throughout] 07/16/20 07/16/20 07/16/20 06:45 07:00 07:16 Temperature Pulse Rate 116 H 125 H 112 H Pulse Rate [ From Monitor] Respiratory 26 H 27 H 25 H Rate Blood Pressure 122/62 120/67 120/67 O2 Sat by Pulse 95 94 94 Oximetry O2 Sat by Pulse Oximetry [ Anterior Bilateral Throughout] 07/16/20 07/16/20 07/16/20 07:30 07:45 08:00 Temperature Pulse Rate 128 H 127 H 125 H Pulse Rate [ 120 H From Monitor] Respiratory 26 H 27 H 30 H Rate Blood Pressure 122/68 121/61 107/54 O2 Sat by Pulse 94 94 94 Oximetry O2 Sat by Pulse Oximetry [ Anterior Bilateral Throughout] 07/16/20 07/16/20 07/16/20 08:11 08:15 08:30 Temperature Pulse Rate 123 H 122 H 118 H Pulse Rate [ From Monitor] Respiratory 30 H 28 H Rate Blood Pressure 107/54 107/54 105/68 O2 Sat by Pulse 96 94 94 Oximetry O2 Sat by Pulse Oximetry [ Anterior Bilateral Throughout] 07/16/20 07/16/20 07/16/20 08:45 09:00 09:15 Temperature Pulse Rate 116 H 123 H 117 H Pulse Rate [ From Monitor] Respiratory 27 H 22 29 H Rate Blood Pressure 112/67 112/61 112/61 O2 Sat by Pulse 94 95 94 Oximetry O2 Sat by Pulse Oximetry [ Anterior Bilateral Throughout] 07/16/20 07/16/20 07/16/20 09:30 09:45 10:00 Temperature 98.7 F Pulse Rate 110 H 123 H 113 H Pulse Rate [ From Monitor] Respiratory 26 H 24 28 H Rate Blood Pressure 112/60 104/66 111/58 O2 Sat by Pulse 94 95 94 Oximetry O2 Sat by Pulse 89 Oximetry [ Anterior Bilateral Throughout] 07/16/20 07/16/20 07/16/20 10:15 10:20 10:30 Temperature Pulse Rate 121 H 117 H 115 H Pulse Rate [ From Monitor] Respiratory 23 26 H Rate Blood Pressure 123/72 111/58 111/73 O2 Sat by Pulse 96 90 Oximetry O2 Sat by Pulse Oximetry [ Anterior Bilateral Throughout] 07/16/20 07/16/20 07/16/20 10:45 11:00 11:15 Temperature Pulse Rate 121 H 119 H 121 H Pulse Rate [ From Monitor] Respiratory 26 H 26 H 23 Rate Blood Pressure 119/75 104/65 104/65 O2 Sat by Pulse 89 87 86 Oximetry O2 Sat by Pulse Oximetry [ Anterior Bilateral Throughout] 07/16/20 07/16/20 07/16/20 11:30 11:35 11:45 Temperature Pulse Rate 132 H 129 H 133 H Pulse Rate [ From Monitor] Respiratory 24 22 Rate Blood Pressure 90/57 84/54 89/59 O2 Sat by Pulse 89 91 Oximetry O2 Sat by Pulse Oximetry [ Anterior Bilateral Throughout] 07/16/20 07/16/20 07/16/20 12:00 12:01 12:15 Temperature Pulse Rate 124 H 130 H 127 H Pulse Rate [ 124 H From Monitor] Respiratory 34 H 24 22 Rate Blood Pressure 98/58 89/59 98/67 O2 Sat by Pulse 92 93 95 Oximetry O2 Sat by Pulse Oximetry [ Anterior Bilateral Throughout] 07/16/20 07/16/20 07/16/20 12:30 12:45 13:00 Temperature Pulse Rate 128 H 130 H 133 H Pulse Rate [ From Monitor] Respiratory 21 22 24 Rate Blood Pressure 116/68 112/71 109/66 O2 Sat by Pulse 96 96 94 Oximetry O2 Sat by Pulse Oximetry [ Anterior Bilateral Throughout] 07/16/20 07/16/20 07/16/20 13:15 13:30 13:45 Temperature 98.6 F Pulse Rate 131 H 128 H 127 H Pulse Rate [ From Monitor] Respiratory 21 18 18 Rate Blood Pressure 111/73 114/73 119/75 O2 Sat by Pulse 94 96 96 Oximetry O2 Sat by Pulse Oximetry [ Anterior Bilateral Throughout] 07/16/20 07/16/20 14:00 15:08 Temperature Pulse Rate 125 H 124 H Pulse Rate [ From Monitor] Respiratory 18 Rate Blood Pressure 113/71 125/69 O2 Sat by Pulse 96 96 Oximetry O2 Sat by Pulse Oximetry [ Anterior Bilateral Throughout] Constitutional: appears uncomfortable, other (morbidly obese, atraumatic, normocephalic, mild resp distress, orally intubated) Eyes: non-icteric ENT: oropharynx dry, other (ETT 24 cm TROY + blood crusted lips) Neck: supple, no lymphadenopathy, other (Large , short neck) Effort: mildly labored Ascultation: Bilateral: clear, diminished breath sounds, rhonchi (scant) Percussion: Bilateral: not dull Cardiovascular: irregular rhythm, other (S1,S2) Gastrointestinal: normoactive bowel sounds, soft, non-tender, non-distended (protuberant), other (lizeth-rectal tube slow oozing) Integumentary: rash, other (Femoral CVC, Newell catheter) Extremities: pink and warm, pulses normal, no ischemia or petechiae, edema (trace to 1+) Neurologic: non-focal exam (grossly), pupils equal and round, other (unable to assess, sedated) Psychiatric: other (unable to assess, sedated) CBC and BMP: 07/16/20 07:29 07/16/20 04:28 ABG, PT/INR, D-dimer: ABG ABG pH 7.314 (7.320-7.450) L 07/16/20 03:38 POC ABG pCO2 48.5 mmHg (32.0-48.0) H 07/16/20 03:38 ABG pCO2 56.4 mm Hg 07/05/20 04:30 POC ABG pO2 58.9 mmHg (83-108) L 07/16/20 03:38 ABG pO2 151.9 mm Hg (80.0-90.0) H 07/05/20 04:30 POC ABG HCO3 24.1 07/16/20 03:38 ABG O2 Saturation 98.7 % (95.0-99.0) 07/05/20 04:30 PT/INR, D-dimer PT 17.6 Sec. (12.2-14.9) H 07/15/20 08:21 INR 1.46 (0.87-1.13) H 07/15/20 08:21 D-Dimer 6608.00 ng/mlDDU (0-234) H 07/03/20 14:50 Abnormal lab findings: Abnormal Labs 06/17/20 06/17/20 06/17/20 12:33 12:33 12:33 WBC 19.5 H RBC 5.18 H Hgb 15.5 H Hct MCHC RDW Lymph % (Auto) 3.8 L [place] % (Auto) Lymph # (Auto) 0.7 L [place] # (Auto) Eos # (Auto) Seg Neutrophils % Seg Neuts % (Manual) 99.0 H Lymphocytes % (Manual) 1.0 L Monocytes % (Manual) Nucleated RBC % Seg Neutrophils # 18.2 H Seg Neutrophils # Man 19.3 H Lymphocytes # (Manual) 0.2 L Monocytes # (Manual) Eosinophils # (Manual) PT 16.5 H INR 1.33 H APTT D-Dimer 1025.04 H Heparin Anti-Xa Level ABG pH POC ABG pCO2 POC ABG pO2 ABG pO2 ABG HCO3 ABG Hemoglobin ABG Oxyhemoglobin ABG Sodium ABG Potassium ABG Chloride ABG Glucose Carboxyhemoglobin Sodium 130 L Potassium 3.4 L Chloride 95.0 L Carbon Dioxide BUN 21 H Creatinine Glucose 137 H POC Glucose Lactic Acid Calcium 7.9 L Phosphorus Magnesium Ferritin Direct Bilirubin AST 84 H ALT 67 H Alkaline Phosphatase Lactate Dehydrogenase 437 H Total Creatine Kinase 310 H C-Reactive Protein 27.90 H Total Protein Albumin 2.9 L Triglycerides Arterial Blood Glucose Arterial Blood Ionized Calcium Urine Creatinine Urine Chloride Vancomycin Trough Coronavirus (PCR) Crossmatch 06/17/20 06/17/20 06/17/20 12:33 12:33 14:48 WBC RBC Hgb Hct MCHC RDW Lymph % (Auto) [place] % (Auto) Lymph # (Auto) [place] # (Auto) Eos # (Auto) Seg Neutrophils % Seg Neuts % (Manual) Lymphocytes % (Manual) Monocytes % (Manual) Nucleated RBC % Seg Neutrophils # Seg Neutrophils # Man Lymphocytes # (Manual) Monocytes # (Manual) Eosinophils # (Manual) PT INR APTT D-Dimer Heparin Anti-Xa Level ABG pH POC ABG pCO2 POC ABG pO2 ABG pO2 ABG HCO3 ABG Hemoglobin ABG Oxyhemoglobin ABG Sodium ABG Potassium ABG Chloride ABG Glucose Carboxyhemoglobin Sodium Potassium Chloride Carbon Dioxide BUN Creatinine Glucose POC Glucose Lactic Acid 2.50 H* 2.20 H* Calcium Phosphorus Magnesium Ferritin 2297.0 H Direct Bilirubin AST ALT Alkaline Phosphatase Lactate Dehydrogenase Total Creatine Kinase C-Reactive Protein Total Protein Albumin Triglycerides Arterial Blood Glucose Arterial Blood Ionized Calcium Urine Creatinine Urine Chloride Vancomycin Trough Coronavirus (PCR) Crossmatch 06/17/20 06/17/20 06/17/20 14:48 14:48 14:48 WBC RBC Hgb Hct MCHC RDW Lymph % (Auto) [place] % (Auto) Lymph # (Auto) [place] # (Auto) Eos # (Auto) Seg Neutrophils % Seg Neuts % (Manual) Lymphocytes % (Manual) Monocytes % (Manual) Nucleated RBC % Seg Neutrophils # Seg Neutrophils # Man Lymphocytes # (Manual) Monocytes # (Manual) Eosinophils # (Manual) PT INR APTT D-Dimer 939.89 H Heparin Anti-Xa Level ABG pH POC ABG pCO2 POC ABG pO2 ABG pO2 ABG HCO3 ABG Hemoglobin ABG Oxyhemoglobin ABG Sodium ABG Potassium ABG Chloride ABG Glucose Carboxyhemoglobin Sodium Potassium Chloride Carbon Dioxide BUN Creatinine Glucose 141 H POC Glucose Lactic Acid Calcium Phosphorus Magnesium Ferritin > 2000.0 H Direct Bilirubin AST ALT Alkaline Phosphatase Lactate Dehydrogenase 503 H Total Creatine Kinase C-Reactive Protein 24.70 H Total Protein Albumin Triglycerides Arterial Blood Glucose Arterial Blood Ionized Calcium Urine Creatinine Urine Chloride Vancomycin Trough Coronavirus (PCR) Crossmatch 06/17/20 06/17/20 06/17/20 16:54 19:39 23:43 WBC RBC Hgb Hct MCHC RDW Lymph % (Auto) [place] % (Auto) Lymph # (Auto) [place] # (Auto) Eos # (Auto) Seg Neutrophils % Seg Neuts % (Manual) Lymphocytes % (Manual) Monocytes % (Manual) Nucleated RBC % Seg Neutrophils # Seg Neutrophils # Man Lymphocytes # (Manual) Monocytes # (Manual) Eosinophils # (Manual) PT INR APTT D-Dimer Heparin Anti-Xa Level ABG pH 7.571 H POC ABG pCO2 24.3 L POC ABG pO2 41.6 L ABG pO2 ABG HCO3 ABG Hemoglobin ABG Oxyhemoglobin 84.0 L ABG Sodium 131.0 L ABG Potassium ABG Chloride ABG Glucose 163 H Carboxyhemoglobin Sodium Potassium Chloride Carbon Dioxide BUN Creatinine Glucose POC Glucose 185 H Lactic Acid 2.10 H* Calcium Phosphorus Magnesium Ferritin Direct Bilirubin AST ALT Alkaline Phosphatase Lactate Dehydrogenase Total Creatine Kinase C-Reactive Protein Total Protein Albumin Triglycerides Arterial Blood Glucose 163 H Arterial Blood Ionized Calcium 4.4 L Urine Creatinine Urine Chloride Vancomycin Trough Coronavirus (PCR) Crossmatch 06/18/20 06/18/20 06/18/20 00:17 00:23 03:55 WBC RBC Hgb Hct MCHC RDW Lymph % (Auto) [place] % (Auto) Lymph # (Auto) [place] # (Auto) Eos # (Auto) Seg Neutrophils % Seg Neuts % (Manual) Lymphocytes % (Manual) Monocytes % (Manual) Nucleated RBC % Seg Neutrophils # Seg Neutrophils # Man Lymphocytes # (Manual) Monocytes # (Manual) Eosinophils # (Manual) PT INR APTT D-Dimer Heparin Anti-Xa Level ABG pH POC ABG pCO2 POC ABG pO2 56.5 L 48.3 L ABG pO2 ABG HCO3 ABG Hemoglobin ABG Oxyhemoglobin 86.3 L 81.7 L ABG Sodium 132.9 L 131.0 L ABG Potassium ABG Chloride ABG Glucose 189 H 161 H Carboxyhemoglobin 0.4 L Sodium Potassium Chloride Carbon Dioxide BUN Creatinine Glucose POC Glucose Lactic Acid 3.80 H* Calcium Phosphorus Magnesium Ferritin Direct Bilirubin AST ALT Alkaline Phosphatase Lactate Dehydrogenase Total Creatine Kinase C-Reactive Protein Total Protein Albumin Triglycerides Arterial Blood Glucose 189 H 161 H Arterial Blood Ionized Calcium 4.3 L 4.2 L Urine Creatinine Urine Chloride Vancomycin Trough Coronavirus (PCR) Crossmatch 06/18/20 06/18/20 06/18/20 05:39 05:39 05:39 WBC 26.2 H RBC Hgb Hct MCHC RDW Lymph % (Auto) [place] % (Auto) Lymph # (Auto) [place] # (Auto) Eos # (Auto) Seg Neutrophils % Seg Neuts % (Manual) 90.0 H Lymphocytes % (Manual) 5.0 L Monocytes % (Manual) Nucleated RBC % Seg Neutrophils # Seg Neutrophils # Man 23.6 H Lymphocytes # (Manual) Monocytes # (Manual) 1.3 H Eosinophils # (Manual) PT INR APTT D-Dimer Heparin Anti-Xa Level ABG pH POC ABG pCO2 POC ABG pO2 ABG pO2 ABG HCO3 ABG Hemoglobin ABG Oxyhemoglobin ABG Sodium ABG Potassium ABG Chloride ABG Glucose Carboxyhemoglobin Sodium 135 L Potassium Chloride 97.5 L Carbon Dioxide 21 L BUN 39 H Creatinine 1.7 H D Glucose 168 H POC Glucose Lactic Acid 3.40 H* Calcium 7.2 L Phosphorus Magnesium Ferritin Direct Bilirubin AST ALT Alkaline Phosphatase Lactate Dehydrogenase Total Creatine Kinase C-Reactive Protein Total Protein Albumin Triglycerides Arterial Blood Glucose Arterial Blood Ionized Calcium Urine Creatinine Urine Chloride Vancomycin Trough Coronavirus (PCR) Crossmatch 06/18/20 06/18/20 06/18/20 07:24 09:00 10:10 WBC RBC Hgb Hct MCHC RDW Lymph % (Auto) [place] % (Auto) Lymph # (Auto) [place] # (Auto) Eos # (Auto) Seg Neutrophils % Seg Neuts % (Manual) Lymphocytes % (Manual) Monocytes % (Manual) Nucleated RBC % Seg Neutrophils # Seg Neutrophils # Man Lymphocytes # (Manual) Monocytes # (Manual) Eosinophils # (Manual) PT INR APTT D-Dimer Heparin Anti-Xa Level ABG pH POC ABG pCO2 POC ABG pO2 ABG pO2 ABG HCO3 ABG Hemoglobin ABG Oxyhemoglobin ABG Sodium ABG Potassium ABG Chloride ABG Glucose Carboxyhemoglobin Sodium Potassium Chloride Carbon Dioxide BUN Creatinine Glucose POC Glucose Lactic Acid 2.90 H* 3.20 H* Calcium Phosphorus Magnesium Ferritin Direct Bilirubin AST ALT Alkaline Phosphatase Lactate Dehydrogenase Total Creatine Kinase C-Reactive Protein Total Protein Albumin Triglycerides Arterial Blood Glucose Arterial Blood Ionized Calcium Urine Creatinine Urine Chloride Vancomycin Trough Coronavirus (PCR) Positive A Crossmatch 06/18/20 06/18/20 06/18/20 11:58 14:43 15:00 WBC RBC Hgb Hct MCHC RDW Lymph % (Auto) [place] % (Auto) Lymph # (Auto) [place] # (Auto) Eos # (Auto) Seg Neutrophils % Seg Neuts % (Manual) Lymphocytes % (Manual) Monocytes % (Manual) Nucleated RBC % Seg Neutrophils # Seg Neutrophils # Man Lymphocytes # (Manual) Monocytes # (Manual) Eosinophils # (Manual) PT INR APTT D-Dimer Heparin Anti-Xa Level ABG pH 7.303 L POC ABG pCO2 POC ABG pO2 82.3 L ABG pO2 ABG HCO3 ABG Hemoglobin ABG Oxyhemoglobin ABG Sodium 135.3 L ABG Potassium ABG Chloride ABG Glucose 215 H Carboxyhemoglobin 0.3 L Sodium Potassium Chloride Carbon Dioxide BUN Creatinine Glucose POC Glucose 209 H Lactic Acid Calcium Phosphorus Magnesium Ferritin Direct Bilirubin AST ALT Alkaline Phosphatase Lactate Dehydrogenase Total Creatine Kinase C-Reactive Protein Total Protein Albumin Triglycerides Arterial Blood Glucose 215 H Arterial Blood Ionized Calcium 4.2 L Urine Creatinine 192.4 H Urine Chloride 31.1 L Vancomycin Trough Coronavirus (PCR) Crossmatch 06/18/20 06/18/20 06/18/20 17:16 19:44 20:33 WBC RBC Hgb Hct MCHC RDW Lymph % (Auto) [place] % (Auto) Lymph # (Auto) [place] # (Auto) Eos # (Auto) Seg Neutrophils % Seg Neuts % (Manual) Lymphocytes % (Manual) Monocytes % (Manual) Nucleated RBC % Seg Neutrophils # Seg Neutrophils # Man Lymphocytes # (Manual) Monocytes # (Manual) Eosinophils # (Manual) PT INR APTT D-Dimer Heparin Anti-Xa Level ABG pH POC ABG pCO2 POC ABG pO2 ABG pO2 ABG HCO3 ABG Hemoglobin ABG Oxyhemoglobin ABG Sodium ABG Potassium ABG Chloride ABG Glucose Carboxyhemoglobin Sodium Potassium Chloride Carbon Dioxide BUN Creatinine Glucose POC Glucose 182 H Lactic Acid 3.00 H* Calcium Phosphorus Magnesium 2.70 H Ferritin Direct Bilirubin AST ALT Alkaline Phosphatase Lactate Dehydrogenase Total Creatine Kinase C-Reactive Protein Total Protein Albumin Triglycerides Arterial Blood Glucose Arterial Blood Ionized Calcium Urine Creatinine Urine Chloride Vancomycin Trough Coronavirus (PCR) Crossmatch 06/18/20 06/19/20 06/19/20 23:43 04:00 04:00 WBC 31.6 H RBC Hgb Hct MCHC RDW Lymph % (Auto) [place] % (Auto) Lymph # (Auto) [place] # (Auto) Eos # (Auto) Seg Neutrophils % Seg Neuts % (Manual) 98.0 H Lymphocytes % (Manual) 0.5 L Monocytes % (Manual) Nucleated RBC % Seg Neutrophils # Seg Neutrophils # Man 31.0 H Lymphocytes # (Manual) 0.2 L Monocytes # (Manual) Eosinophils # (Manual) PT INR APTT D-Dimer Heparin Anti-Xa Level ABG pH POC ABG pCO2 POC ABG pO2 ABG pO2 ABG HCO3 ABG Hemoglobin ABG Oxyhemoglobin ABG Sodium ABG Potassium ABG Chloride ABG Glucose Carboxyhemoglobin Sodium Potassium Chloride Carbon Dioxide BUN 56 H Creatinine 1.6 H Glucose 176 H POC Glucose 149 H Lactic Acid Calcium 7.0 L Phosphorus Magnesium Ferritin Direct Bilirubin AST 244 H ALT 159 H Alkaline Phosphatase Lactate Dehydrogenase Total Creatine Kinase C-Reactive Protein Total Protein 4.9 L D Albumin 2.5 L Triglycerides Arterial Blood Glucose Arterial Blood Ionized Calcium Urine Creatinine Urine Chloride Vancomycin Trough Coronavirus (PCR) Crossmatch 06/19/20 06/19/20 06/19/20 04:00 05:44 11:42 WBC RBC Hgb Hct MCHC RDW Lymph % (Auto) [place] % (Auto) Lymph # (Auto) [place] # (Auto) Eos # (Auto) Seg Neutrophils % Seg Neuts % (Manual) Lymphocytes % (Manual) Monocytes % (Manual) Nucleated RBC % Seg Neutrophils # Seg Neutrophils # Man Lymphocytes # (Manual) Monocytes # (Manual) Eosinophils # (Manual) PT INR APTT D-Dimer Heparin Anti-Xa Level ABG pH 7.265 L POC ABG pCO2 51.8 H POC ABG pO2 65.1 L ABG pO2 ABG HCO3 ABG Hemoglobin ABG Oxyhemoglobin ABG Sodium ABG Potassium ABG Chloride ABG Glucose 184 H Carboxyhemoglobin Sodium Potassium Chloride Carbon Dioxide BUN Creatinine Glucose POC Glucose 156 H 191 H Lactic Acid Calcium Phosphorus Magnesium Ferritin Direct Bilirubin AST ALT Alkaline Phosphatase Lactate Dehydrogenase Total Creatine Kinase C-Reactive Protein Total Protein Albumin Triglycerides Arterial Blood Glucose 184 H Arterial Blood Ionized Calcium 4.3 L Urine Creatinine Urine Chloride Vancomycin Trough Coronavirus (PCR) Crossmatch 06/19/20 06/19/20 06/19/20 12:30 17:16 18:36 WBC RBC Hgb Hct MCHC RDW Lymph % (Auto) [place] % (Auto) Lymph # (Auto) [place] # (Auto) Eos # (Auto) Seg Neutrophils % Seg Neuts % (Manual) Lymphocytes % (Manual) Monocytes % (Manual) Nucleated RBC % Seg Neutrophils # Seg Neutrophils # Man Lymphocytes # (Manual) Monocytes # (Manual) Eosinophils # (Manual) PT 16.4 H INR 1.32 H APTT D-Dimer Heparin Anti-Xa Level ABG pH 7.088 L POC ABG pCO2 78.1 H POC ABG pO2 208.3 H ABG pO2 ABG HCO3 ABG Hemoglobin ABG Oxyhemoglobin 98.3 H ABG Sodium ABG Potassium 5.0 H ABG Chloride ABG Glucose 182 H Carboxyhemoglobin 0.4 L Sodium Potassium Chloride Carbon Dioxide BUN Creatinine Glucose POC Glucose 154 H Lactic Acid Calcium Phosphorus Magnesium Ferritin Direct Bilirubin AST ALT Alkaline Phosphatase Lactate Dehydrogenase Total Creatine Kinase C-Reactive Protein Total Protein Albumin Triglycerides Arterial Blood Glucose 182 H Arterial Blood Ionized Calcium 4.3 L Urine Creatinine Urine Chloride Vancomycin Trough Coronavirus (PCR) Crossmatch 06/19/20 06/20/20 06/20/20 23:32 03:00 05:19 WBC RBC Hgb Hct MCHC RDW Lymph % (Auto) [place] % (Auto) Lymph # (Auto) [place] # (Auto) Eos # (Auto) Seg Neutrophils % Seg Neuts % (Manual) Lymphocytes % (Manual) Monocytes % (Manual) Nucleated RBC % Seg Neutrophils # Seg Neutrophils # Man Lymphocytes # (Manual) Monocytes # (Manual) Eosinophils # (Manual) PT INR APTT D-Dimer Heparin Anti-Xa Level 0.77 H ABG pH POC ABG pCO2 POC ABG pO2 ABG pO2 ABG HCO3 ABG Hemoglobin ABG Oxyhemoglobin ABG Sodium ABG Potassium ABG Chloride ABG Glucose Carboxyhemoglobin Sodium Potassium Chloride Carbon Dioxide BUN Creatinine Glucose POC Glucose 201 H 190 H Lactic Acid Calcium Phosphorus Magnesium Ferritin Direct Bilirubin AST ALT Alkaline Phosphatase Lactate Dehydrogenase Total Creatine Kinase C-Reactive Protein Total Protein Albumin Triglycerides Arterial Blood Glucose Arterial Blood Ionized Calcium Urine Creatinine Urine Chloride Vancomycin Trough Coronavirus (PCR) Crossmatch 06/20/20 06/20/20 06/20/20 08:25 08:25 11:36 WBC RBC Hgb Hct MCHC RDW Lymph % (Auto) [place] % (Auto) Lymph # (Auto) [place] # (Auto) Eos # (Auto) Seg Neutrophils % Seg Neuts % (Manual) Lymphocytes % (Manual) Monocytes % (Manual) Nucleated RBC % Seg Neutrophils # Seg Neutrophils # Man Lymphocytes # (Manual) Monocytes # (Manual) Eosinophils # (Manual) PT INR APTT D-Dimer Heparin Anti-Xa Level ABG pH POC ABG pCO2 POC ABG pO2 ABG pO2 ABG HCO3 ABG Hemoglobin ABG Oxyhemoglobin ABG Sodium ABG Potassium ABG Chloride ABG Glucose Carboxyhemoglobin Sodium 135 L Potassium 5.4 H Chloride 109.2 H Carbon Dioxide 19 L BUN 68 H Creatinine 2.5 H D Glucose 201 H POC Glucose 184 H Lactic Acid Calcium 5.5 L* D Phosphorus Magnesium Ferritin Direct Bilirubin AST 123 H ALT 86 H Alkaline Phosphatase Lactate Dehydrogenase Total Creatine Kinase C-Reactive Protein Total Protein 4.6 L Albumin 1.5 L Triglycerides Arterial Blood Glucose Arterial Blood Ionized Calcium Urine Creatinine Urine Chloride Vancomycin Trough 22.7 H Coronavirus (PCR) Crossmatch 06/20/20 06/20/20 06/20/20 11:40 17:28 20:00 WBC RBC Hgb Hct MCHC RDW Lymph % (Auto) [place] % (Auto) Lymph # (Auto) [place] # (Auto) Eos # (Auto) Seg Neutrophils % Seg Neuts % (Manual) Lymphocytes % (Manual) Monocytes % (Manual) Nucleated RBC % Seg Neutrophils # Seg Neutrophils # Man Lymphocytes # (Manual) Monocytes # (Manual) Eosinophils # (Manual) PT INR APTT D-Dimer Heparin Anti-Xa Level 0.89 H ABG pH 7.099 L POC ABG pCO2 61.1 H POC ABG pO2 ABG pO2 ABG HCO3 ABG Hemoglobin ABG Oxyhemoglobin ABG Sodium ABG Potassium 5.0 H ABG Chloride 111.0 H ABG Glucose 200 H Carboxyhemoglobin 0.4 L Sodium Potassium Chloride Carbon Dioxide BUN Creatinine Glucose POC Glucose 165 H Lactic Acid Calcium Phosphorus Magnesium Ferritin Direct Bilirubin AST ALT Alkaline Phosphatase Lactate Dehydrogenase Total Creatine Kinase C-Reactive Protein Total Protein Albumin Triglycerides Arterial Blood Glucose 200 H Arterial Blood Ionized Calcium 4.2 L Urine Creatinine Urine Chloride Vancomycin Trough Coronavirus (PCR) Crossmatch 06/20/20 06/21/20 06/21/20 23:29 05:00 05:20 WBC RBC Hgb Hct MCHC RDW Lymph % (Auto) [place] % (Auto) Lymph # (Auto) [place] # (Auto) Eos # (Auto) Seg Neutrophils % Seg Neuts % (Manual) Lymphocytes % (Manual) Monocytes % (Manual) Nucleated RBC % Seg Neutrophils # Seg Neutrophils # Man Lymphocytes # (Manual) Monocytes # (Manual) Eosinophils # (Manual) PT INR APTT D-Dimer Heparin Anti-Xa Level ABG pH POC ABG pCO2 POC ABG pO2 ABG pO2 ABG HCO3 ABG Hemoglobin ABG Oxyhemoglobin ABG Sodium ABG Potassium ABG Chloride ABG Glucose Carboxyhemoglobin Sodium Potassium Chloride 112.0 H Carbon Dioxide 20 L BUN 92 H Creatinine 3.9 H D Glucose 214 H POC Glucose 145 H 191 H Lactic Acid Calcium 6.5 L D Phosphorus Magnesium Ferritin Direct Bilirubin AST 98 H ALT 84 H Alkaline Phosphatase Lactate Dehydrogenase Total Creatine Kinase C-Reactive Protein Total Protein 4.6 L Albumin 2.1 L Triglycerides 180 H Arterial Blood Glucose Arterial Blood Ionized Calcium Urine Creatinine Urine Chloride Vancomycin Trough Coronavirus (PCR) Crossmatch 06/21/20 06/21/20 06/21/20 08:56 11:12 12:43 WBC RBC Hgb Hct MCHC RDW Lymph % (Auto) [place] % (Auto) Lymph # (Auto) [place] # (Auto) Eos # (Auto) Seg Neutrophils % Seg Neuts % (Manual) Lymphocytes % (Manual) Monocytes % (Manual) Nucleated RBC % Seg Neutrophils # Seg Neutrophils # Man Lymphocytes # (Manual) Monocytes # (Manual) Eosinophils # (Manual) PT INR APTT D-Dimer Heparin Anti-Xa Level 0.28 L ABG pH 7.184 L POC ABG pCO2 48.3 H POC ABG pO2 172.1 H ABG pO2 ABG HCO3 ABG Hemoglobin ABG Oxyhemoglobin 98.7 H ABG Sodium ABG Potassium 4.9 H ABG Chloride 112.0 H ABG Glucose 196 H Carboxyhemoglobin 0.2 L Sodium Potassium Chloride Carbon Dioxide BUN Creatinine Glucose POC Glucose 177 H Lactic Acid Calcium Phosphorus Magnesium Ferritin Direct Bilirubin AST ALT Alkaline Phosphatase Lactate Dehydrogenase Total Creatine Kinase C-Reactive Protein Total Protein Albumin Triglycerides Arterial Blood Glucose 196 H Arterial Blood Ionized Calcium 4.1 L Urine Creatinine Urine Chloride Vancomycin Trough Coronavirus (PCR) Crossmatch 06/21/20 06/21/20 06/22/20 16:31 Unknown 00:12 WBC RBC Hgb Hct MCHC RDW Lymph % (Auto) [place] % (Auto) Lymph # (Auto) [place] # (Auto) Eos # (Auto) Seg Neutrophils % Seg Neuts % (Manual) Lymphocytes % (Manual) Monocytes % (Manual) Nucleated RBC % Seg Neutrophils # Seg Neutrophils # Man Lymphocytes # (Manual) Monocytes # (Manual) Eosinophils # (Manual) PT INR APTT D-Dimer Heparin Anti-Xa Level 0.78 H ABG pH POC ABG pCO2 POC ABG pO2 ABG pO2 ABG HCO3 ABG Hemoglobin ABG Oxyhemoglobin ABG Sodium ABG Potassium ABG Chloride ABG Glucose Carboxyhemoglobin Sodium Potassium Chloride Carbon Dioxide BUN Creatinine Glucose POC Glucose 150 H 173 H Lactic Acid Calcium Phosphorus Magnesium Ferritin Direct Bilirubin AST ALT Alkaline Phosphatase Lactate Dehydrogenase Total Creatine Kinase C-Reactive Protein Total Protein Albumin Triglycerides Arterial Blood Glucose Arterial Blood Ionized Calcium Urine Creatinine Urine Chloride Vancomycin Trough Coronavirus (PCR) Crossmatch 06/22/20 06/22/20 06/22/20 04:00 05:04 05:30 WBC 33.9 H RBC Hgb 11.7 L Hct 35.2 L MCHC RDW 15.8 H Lymph % (Auto) [place] % (Auto) Lymph # (Auto) [place] # (Auto) Eos # (Auto) Seg Neutrophils % Seg Neuts % (Manual) 93.0 H Lymphocytes % (Manual) 5.0 L Monocytes % (Manual) Nucleated RBC % Seg Neutrophils # Seg Neutrophils # Man 31.5 H Lymphocytes # (Manual) Monocytes # (Manual) Eosinophils # (Manual) PT INR APTT D-Dimer Heparin Anti-Xa Level ABG pH 7.169 L POC ABG pCO2 POC ABG pO2 ABG pO2 ABG HCO3 ABG Hemoglobin ABG Oxyhemoglobin ABG Sodium ABG Potassium 5.1 H ABG Chloride 112.0 H ABG Glucose 186 H Carboxyhemoglobin 0.3 L Sodium Potassium Chloride Carbon Dioxide BUN Creatinine Glucose POC Glucose 161 H Lactic Acid Calcium Phosphorus Magnesium Ferritin Direct Bilirubin AST ALT Alkaline Phosphatase Lactate Dehydrogenase Total Creatine Kinase C-Reactive Protein Total Protein Albumin Triglycerides Arterial Blood Glucose 186 H Arterial Blood Ionized Calcium 4.1 L Urine Creatinine Urine Chloride Vancomycin Trough Coronavirus (PCR) Crossmatch 06/22/20 06/22/20 06/22/20 05:30 11:39 13:27 WBC RBC Hgb Hct MCHC RDW Lymph % (Auto) [place] % (Auto) Lymph # (Auto) [place] # (Auto) Eos # (Auto) Seg Neutrophils % Seg Neuts % (Manual) Lymphocytes % (Manual) Monocytes % (Manual) Nucleated RBC % Seg Neutrophils # Seg Neutrophils # Man Lymphocytes # (Manual) Monocytes # (Manual) Eosinophils # (Manual) PT INR APTT D-Dimer Heparin Anti-Xa Level ABG pH POC ABG pCO2 POC ABG pO2 ABG pO2 ABG HCO3 ABG Hemoglobin ABG Oxyhemoglobin ABG Sodium ABG Potassium ABG Chloride ABG Glucose Carboxyhemoglobin Sodium Potassium 5.7 H Chloride 111.3 H Carbon Dioxide 18 L BUN 112 H Creatinine 5.0 H Glucose 173 H POC Glucose 172 H 176 H Lactic Acid Calcium 6.7 L Phosphorus Magnesium Ferritin Direct Bilirubin AST ALT Alkaline Phosphatase Lactate Dehydrogenase Total Creatine Kinase C-Reactive Protein Total Protein Albumin Triglycerides Arterial Blood Glucose Arterial Blood Ionized Calcium Urine Creatinine Urine Chloride Vancomycin Trough Coronavirus (PCR) Crossmatch 06/22/20 06/22/20 06/22/20 14:37 17:00 17:40 WBC RBC Hgb Hct MCHC RDW Lymph % (Auto) [place] % (Auto) Lymph # (Auto) [place] # (Auto) Eos # (Auto) Seg Neutrophils % Seg Neuts % (Manual) Lymphocytes % (Manual) Monocytes % (Manual) Nucleated RBC % Seg Neutrophils # Seg Neutrophils # Man Lymphocytes # (Manual) Monocytes # (Manual) Eosinophils # (Manual) PT INR APTT D-Dimer Heparin Anti-Xa Level 1.32 H ABG pH POC ABG pCO2 POC ABG pO2 ABG pO2 ABG HCO3 ABG Hemoglobin ABG Oxyhemoglobin ABG Sodium ABG Potassium ABG Chloride ABG Glucose Carboxyhemoglobin Sodium Potassium Chloride Carbon Dioxide BUN Creatinine Glucose POC Glucose 171 H Lactic Acid Calcium Phosphorus Magnesium Ferritin Direct Bilirubin AST ALT Alkaline Phosphatase Lactate Dehydrogenase Total Creatine Kinase C-Reactive Protein 5.30 H Total Protein Albumin Triglycerides Arterial Blood Glucose Arterial Blood Ionized Calcium Urine Creatinine Urine Chloride Vancomycin Trough Coronavirus (PCR) Crossmatch 06/22/20 06/23/20 06/23/20 23:36 02:13 02:41 WBC RBC Hgb Hct MCHC RDW Lymph % (Auto) [place] % (Auto) Lymph # (Auto) [place] # (Auto) Eos # (Auto) Seg Neutrophils % Seg Neuts % (Manual) Lymphocytes % (Manual) Monocytes % (Manual) Nucleated RBC % Seg Neutrophils # Seg Neutrophils # Man Lymphocytes # (Manual) Monocytes # (Manual) Eosinophils # (Manual) PT INR APTT D-Dimer Heparin Anti-Xa Level 0.21 L ABG pH 7.318 L POC ABG pCO2 POC ABG pO2 157.5 H ABG pO2 ABG HCO3 ABG Hemoglobin ABG Oxyhemoglobin ABG Sodium 135.6 L ABG Potassium 4.6 H ABG Chloride 110.0 H ABG Glucose 169 H Carboxyhemoglobin Sodium Potassium Chloride Carbon Dioxide BUN Creatinine Glucose POC Glucose 155 H Lactic Acid Calcium Phosphorus Magnesium Ferritin Direct Bilirubin AST ALT Alkaline Phosphatase Lactate Dehydrogenase Total Creatine Kinase C-Reactive Protein Total Protein Albumin Triglycerides Arterial Blood Glucose 169 H Arterial Blood Ionized Calcium Urine Creatinine Urine Chloride Vancomycin Trough Coronavirus (PCR) Crossmatch 06/23/20 06/23/20 06/23/20 04:00 04:00 05:24 WBC 27.4 H RBC Hgb 11.3 L Hct 33.8 L MCHC RDW Lymph % (Auto) [place] % (Auto) Lymph # (Auto) [place] # (Auto) Eos # (Auto) Seg Neutrophils % Seg Neuts % (Manual) 93.0 H Lymphocytes % (Manual) 1.0 L Monocytes % (Manual) Nucleated RBC % 1.0 H Seg Neutrophils # Seg Neutrophils # Man 25.5 H Lymphocytes # (Manual) 0.3 L Monocytes # (Manual) 1.1 H Eosinophils # (Manual) PT INR APTT D-Dimer Heparin Anti-Xa Level ABG pH POC ABG pCO2 POC ABG pO2 ABG pO2 ABG HCO3 ABG Hemoglobin ABG Oxyhemoglobin ABG Sodium ABG Potassium ABG Chloride ABG Glucose Carboxyhemoglobin Sodium Potassium Chloride 107.6 H Carbon Dioxide 20 L BUN 100 H Creatinine 4.7 H Glucose 168 H POC Glucose 151 H Lactic Acid Calcium Phosphorus Magnesium Ferritin Direct Bilirubin AST ALT Alkaline Phosphatase Lactate Dehydrogenase Total Creatine Kinase C-Reactive Protein Total Protein Albumin Triglycerides Arterial Blood Glucose Arterial Blood Ionized Calcium Urine Creatinine Urine Chloride Vancomycin Trough Coronavirus (PCR) Crossmatch 06/23/20 06/23/20 06/23/20 11:30 17:18 23:50 WBC RBC Hgb Hct MCHC RDW Lymph % (Auto) [place] % (Auto) Lymph # (Auto) [place] # (Auto) Eos # (Auto) Seg Neutrophils % Seg Neuts % (Manual) Lymphocytes % (Manual) Monocytes % (Manual) Nucleated RBC % Seg Neutrophils # Seg Neutrophils # Man Lymphocytes # (Manual) Monocytes # (Manual) Eosinophils # (Manual) PT INR APTT D-Dimer Heparin Anti-Xa Level ABG pH POC ABG pCO2 POC ABG pO2 ABG pO2 ABG HCO3 ABG Hemoglobin ABG Oxyhemoglobin ABG Sodium ABG Potassium ABG Chloride ABG Glucose Carboxyhemoglobin Sodium Potassium Chloride Carbon Dioxide BUN Creatinine Glucose POC Glucose 157 H 156 H 162 H Lactic Acid Calcium Phosphorus Magnesium Ferritin Direct Bilirubin AST ALT Alkaline Phosphatase Lactate Dehydrogenase Total Creatine Kinase C-Reactive Protein Total Protein Albumin Triglycerides Arterial Blood Glucose Arterial Blood Ionized Calcium Urine Creatinine Urine Chloride Vancomycin Trough Coronavirus (PCR) Crossmatch 06/24/20 06/24/20 06/24/20 04:41 05:57 06:30 WBC 34.3 H RBC Hgb 10.9 L Hct 32.6 L MCHC RDW Lymph % (Auto) 2.0 L [place] % (Auto) Lymph # (Auto) 0.7 L [place] # (Auto) 1.2 H Eos # (Auto) Seg Neutrophils % Seg Neuts % (Manual) 96.0 H Lymphocytes % (Manual) 3.0 L Monocytes % (Manual) Nucleated RBC % Seg Neutrophils # 32.3 H Seg Neutrophils # Man 32.9 H Lymphocytes # (Manual) 1.0 L Monocytes # (Manual) Eosinophils # (Manual) PT INR APTT D-Dimer Heparin Anti-Xa Level ABG pH POC ABG pCO2 POC ABG pO2 71.1 L ABG pO2 ABG HCO3 ABG Hemoglobin ABG Oxyhemoglobin 92.4 L ABG Sodium 115.6 L ABG Potassium ABG Chloride ABG Glucose 159 H Carboxyhemoglobin Sodium Potassium Chloride Carbon Dioxide BUN Creatinine Glucose POC Glucose 143 H Lactic Acid Calcium Phosphorus Magnesium Ferritin Direct Bilirubin AST ALT Alkaline Phosphatase Lactate Dehydrogenase Total Creatine Kinase C-Reactive Protein Total Protein Albumin Triglycerides Arterial Blood Glucose 159 H Arterial Blood Ionized Calcium 4.2 L Urine Creatinine Urine Chloride Vancomycin Trough Coronavirus (PCR) Crossmatch 06/24/20 06/24/20 06/24/20 07:03 09:37 11:56 WBC RBC Hgb Hct MCHC RDW Lymph % (Auto) [place] % (Auto) Lymph # (Auto) [place] # (Auto) Eos # (Auto) Seg Neutrophils % Seg Neuts % (Manual) Lymphocytes % (Manual) Monocytes % (Manual) Nucleated RBC % Seg Neutrophils # Seg Neutrophils # Man Lymphocytes # (Manual) Monocytes # (Manual) Eosinophils # (Manual) PT INR APTT D-Dimer Heparin Anti-Xa Level 0.26 L ABG pH POC ABG pCO2 POC ABG pO2 ABG pO2 ABG HCO3 ABG Hemoglobin ABG Oxyhemoglobin ABG Sodium ABG Potassium ABG Chloride ABG Glucose Carboxyhemoglobin Sodium Potassium 5.1 H Chloride Carbon Dioxide BUN 103 H Creatinine 5.0 H Glucose 163 H POC Glucose 149 H Lactic Acid Calcium 7.6 L Phosphorus Magnesium Ferritin Direct Bilirubin AST ALT Alkaline Phosphatase Lactate Dehydrogenase Total Creatine Kinase C-Reactive Protein Total Protein Albumin Triglycerides Arterial Blood Glucose Arterial Blood Ionized Calcium Urine Creatinine Urine Chloride Vancomycin Trough Coronavirus (PCR) Crossmatch 06/24/20 06/25/20 06/25/20 18:09 01:05 03:00 WBC RBC Hgb 10.6 L Hct 32.1 L MCHC RDW Lymph % (Auto) [place] % (Auto) Lymph # (Auto) [place] # (Auto) Eos # (Auto) Seg Neutrophils % Seg Neuts % (Manual) Lymphocytes % (Manual) Monocytes % (Manual) Nucleated RBC % Seg Neutrophils # Seg Neutrophils # Man Lymphocytes # (Manual) Monocytes # (Manual) Eosinophils # (Manual) PT INR APTT D-Dimer Heparin Anti-Xa Level ABG pH POC ABG pCO2 POC ABG pO2 ABG pO2 ABG HCO3 ABG Hemoglobin ABG Oxyhemoglobin ABG Sodium ABG Potassium ABG Chloride ABG Glucose Carboxyhemoglobin Sodium Potassium Chloride Carbon Dioxide BUN Creatinine Glucose POC Glucose 141 H 137 H Lactic Acid Calcium Phosphorus Magnesium Ferritin Direct Bilirubin AST ALT Alkaline Phosphatase Lactate Dehydrogenase Total Creatine Kinase C-Reactive Protein Total Protein Albumin Triglycerides Arterial Blood Glucose Arterial Blood Ionized Calcium Urine Creatinine Urine Chloride Vancomycin Trough Coronavirus (PCR) Crossmatch 06/25/20 06/25/20 06/25/20 03:48 05:17 12:08 WBC RBC Hgb Hct MCHC RDW Lymph % (Auto) [place] % (Auto) Lymph # (Auto) [place] # (Auto) Eos # (Auto) Seg Neutrophils % Seg Neuts % (Manual) Lymphocytes % (Manual) Monocytes % (Manual) Nucleated RBC % Seg Neutrophils # Seg Neutrophils # Man Lymphocytes # (Manual) Monocytes # (Manual) Eosinophils # (Manual) PT INR APTT D-Dimer Heparin Anti-Xa Level ABG pH POC ABG pCO2 29.4 L POC ABG pO2 67.1 L ABG pO2 ABG HCO3 ABG Hemoglobin 11.5 L ABG Oxyhemoglobin ABG Sodium 124.1 L ABG Potassium 4.6 H ABG Chloride ABG Glucose 159 H Carboxyhemoglobin Sodium Potassium Chloride Carbon Dioxide BUN Creatinine Glucose POC Glucose 149 H 150 H Lactic Acid Calcium Phosphorus Magnesium Ferritin Direct Bilirubin AST ALT Alkaline Phosphatase Lactate Dehydrogenase Total Creatine Kinase C-Reactive Protein Total Protein Albumin Triglycerides Arterial Blood Glucose 159 H Arterial Blood Ionized Calcium 4.2 L Urine Creatinine Urine Chloride Vancomycin Trough Coronavirus (PCR) Crossmatch 06/25/20 06/25/20 06/25/20 16:27 16:35 17:27 WBC RBC Hgb Hct MCHC RDW Lymph % (Auto) [place] % (Auto) Lymph # (Auto) [place] # (Auto) Eos # (Auto) Seg Neutrophils % Seg Neuts % (Manual) Lymphocytes % (Manual) Monocytes % (Manual) Nucleated RBC % Seg Neutrophils # Seg Neutrophils # Man Lymphocytes # (Manual) Monocytes # (Manual) Eosinophils # (Manual) PT INR APTT D-Dimer Heparin Anti-Xa Level < 0.10 L ABG pH POC ABG pCO2 POC ABG pO2 ABG pO2 ABG HCO3 ABG Hemoglobin ABG Oxyhemoglobin ABG Sodium ABG Potassium ABG Chloride ABG Glucose Carboxyhemoglobin Sodium Potassium Chloride Carbon Dioxide BUN Creatinine Glucose POC Glucose 143 H 156 H Lactic Acid Calcium Phosphorus Magnesium Ferritin Direct Bilirubin AST ALT Alkaline Phosphatase Lactate Dehydrogenase Total Creatine Kinase C-Reactive Protein Total Protein Albumin Triglycerides Arterial Blood Glucose Arterial Blood Ionized Calcium Urine Creatinine Urine Chloride Vancomycin Trough Coronavirus (PCR) Crossmatch 06/25/20 06/25/20 06/25/20 20:00 20:55 23:10 WBC 32.7 H RBC 3.06 L Hgb 9.0 L 9.5 L Hct 26.7 L 28.6 L MCHC RDW Lymph % (Auto) [place] % (Auto) Lymph # (Auto) [place] # (Auto) Eos # (Auto) Seg Neutrophils % Seg Neuts % (Manual) Lymphocytes % (Manual) 2.0 L Monocytes % (Manual) Nucleated RBC % Seg Neutrophils # Seg Neutrophils # Man 30.7 H Lymphocytes # (Manual) 0.7 L Monocytes # (Manual) 1.3 H Eosinophils # (Manual) PT 17.7 H INR 1.47 H APTT 65.8 H* D-Dimer Heparin Anti-Xa Level ABG pH POC ABG pCO2 POC ABG pO2 ABG pO2 ABG HCO3 ABG Hemoglobin ABG Oxyhemoglobin ABG Sodium ABG Potassium ABG Chloride ABG Glucose Carboxyhemoglobin Sodium Potassium Chloride Carbon Dioxide BUN Creatinine Glucose POC Glucose Lactic Acid Calcium Phosphorus Magnesium Ferritin Direct Bilirubin AST ALT Alkaline Phosphatase Lactate Dehydrogenase Total Creatine Kinase C-Reactive Protein Total Protein Albumin Triglycerides Arterial Blood Glucose Arterial Blood Ionized Calcium Urine Creatinine Urine Chloride Vancomycin Trough Coronavirus (PCR) Crossmatch 06/25/20 06/26/20 06/26/20 23:14 01:30 03:25 WBC RBC Hgb Hct MCHC RDW Lymph % (Auto) [place] % (Auto) Lymph # (Auto) [place] # (Auto) Eos # (Auto) Seg Neutrophils % Seg Neuts % (Manual) Lymphocytes % (Manual) Monocytes % (Manual) Nucleated RBC % Seg Neutrophils # Seg Neutrophils # Man Lymphocytes # (Manual) Monocytes # (Manual) Eosinophils # (Manual) PT INR APTT D-Dimer Heparin Anti-Xa Level < 0.10 L ABG pH POC ABG pCO2 POC ABG pO2 ABG pO2 ABG HCO3 ABG Hemoglobin 11.8 L ABG Oxyhemoglobin ABG Sodium 127.1 L ABG Potassium 5.4 H ABG Chloride ABG Glucose 155 H Carboxyhemoglobin 0.3 L Sodium Potassium Chloride Carbon Dioxide BUN Creatinine Glucose POC Glucose 148 H Lactic Acid Calcium Phosphorus Magnesium Ferritin Direct Bilirubin AST ALT Alkaline Phosphatase Lactate Dehydrogenase Total Creatine Kinase C-Reactive Protein Total Protein Albumin Triglycerides Arterial Blood Glucose 155 H Arterial Blood Ionized Calcium 4.2 L Urine Creatinine Urine Chloride Vancomycin Trough Coronavirus (PCR) Crossmatch 06/26/20 06/26/20 06/26/20 03:59 05:14 05:47 WBC 36.5 H RBC 3.26 L Hgb 9.7 L Hct 28.2 L MCHC RDW Lymph % (Auto) [place] % (Auto) Lymph # (Auto) [place] # (Auto) Eos # (Auto) Seg Neutrophils % Seg Neuts % (Manual) 92.0 H Lymphocytes % (Manual) 4.0 L Monocytes % (Manual) Nucleated RBC % Seg Neutrophils # Seg Neutrophils # Man 33.6 H Lymphocytes # (Manual) Monocytes # (Manual) Eosinophils # (Manual) PT INR APTT D-Dimer Heparin Anti-Xa Level ABG pH POC ABG pCO2 POC ABG pO2 ABG pO2 ABG HCO3 ABG Hemoglobin ABG Oxyhemoglobin ABG Sodium ABG Potassium ABG Chloride ABG Glucose Carboxyhemoglobin Sodium Potassium 5.9 H Chloride Carbon Dioxide 20 L BUN 144 H Creatinine 6.4 H Glucose 149 H POC Glucose 128 H Lactic Acid Calcium 7.6 L Phosphorus Magnesium Ferritin Direct Bilirubin AST ALT Alkaline Phosphatase Lactate Dehydrogenase Total Creatine Kinase C-Reactive Protein Total Protein Albumin Triglycerides Arterial Blood Glucose Arterial Blood Ionized Calcium Urine Creatinine Urine Chloride Vancomycin Trough Coronavirus (PCR) Crossmatch 06/26/20 06/26/20 06/26/20 05:47 12:47 17:42 WBC RBC Hgb Hct MCHC RDW Lymph % (Auto) [place] % (Auto) Lymph # (Auto) [place] # (Auto) Eos # (Auto) Seg Neutrophils % Seg Neuts % (Manual) Lymphocytes % (Manual) Monocytes % (Manual) Nucleated RBC % Seg Neutrophils # Seg Neutrophils # Man Lymphocytes # (Manual) Monocytes # (Manual) Eosinophils # (Manual) PT 17.4 H INR 1.44 H APTT D-Dimer Heparin Anti-Xa Level ABG pH POC ABG pCO2 POC ABG pO2 ABG pO2 ABG HCO3 ABG Hemoglobin ABG Oxyhemoglobin ABG Sodium ABG Potassium ABG Chloride ABG Glucose Carboxyhemoglobin Sodium Potassium Chloride Carbon Dioxide BUN Creatinine Glucose POC Glucose 124 H 127 H Lactic Acid Calcium Phosphorus Magnesium Ferritin Direct Bilirubin AST ALT Alkaline Phosphatase Lactate Dehydrogenase Total Creatine Kinase C-Reactive Protein Total Protein Albumin Triglycerides Arterial Blood Glucose Arterial Blood Ionized Calcium Urine Creatinine Urine Chloride Vancomycin Trough Coronavirus (PCR) Crossmatch 06/26/20 06/27/20 06/27/20 23:30 03:32 04:00 WBC RBC Hgb 8.7 L Hct 26.4 L MCHC RDW Lymph % (Auto) [place] % (Auto) Lymph # (Auto) [place] # (Auto) Eos # (Auto) Seg Neutrophils % Seg Neuts % (Manual) Lymphocytes % (Manual) Monocytes % (Manual) Nucleated RBC % Seg Neutrophils # Seg Neutrophils # Man Lymphocytes # (Manual) Monocytes # (Manual) Eosinophils # (Manual) PT INR APTT D-Dimer Heparin Anti-Xa Level ABG pH 7.298 L POC ABG pCO2 POC ABG pO2 ABG pO2 ABG HCO3 ABG Hemoglobin 9.6 L ABG Oxyhemoglobin ABG Sodium 124.4 L ABG Potassium 6.6 H ABG Chloride ABG Glucose 136 H Carboxyhemoglobin Sodium Potassium Chloride Carbon Dioxide BUN Creatinine Glucose POC Glucose 123 H Lactic Acid Calcium Phosphorus Magnesium Ferritin Direct Bilirubin AST ALT Alkaline Phosphatase Lactate Dehydrogenase Total Creatine Kinase C-Reactive Protein Total Protein Albumin Triglycerides Arterial Blood Glucose 136 H Arterial Blood Ionized Calcium 4.1 L Urine Creatinine Urine Chloride Vancomycin Trough Coronavirus (PCR) Crossmatch 06/27/20 06/27/20 06/27/20 05:26 10:14 11:58 WBC RBC Hgb Hct MCHC RDW Lymph % (Auto) [place] % (Auto) Lymph # (Auto) [place] # (Auto) Eos # (Auto) Seg Neutrophils % Seg Neuts % (Manual) Lymphocytes % (Manual) Monocytes % (Manual) Nucleated RBC % Seg Neutrophils # Seg Neutrophils # Man Lymphocytes # (Manual) Monocytes # (Manual) Eosinophils # (Manual) PT INR APTT D-Dimer Heparin Anti-Xa Level ABG pH POC ABG pCO2 POC ABG pO2 ABG pO2 ABG HCO3 ABG Hemoglobin ABG Oxyhemoglobin ABG Sodium ABG Potassium ABG Chloride ABG Glucose Carboxyhemoglobin Sodium 136 L Potassium 7.0 H* Chloride 97.8 L Carbon Dioxide BUN 172 H Creatinine 7.4 H Glucose 129 H POC Glucose 124 H 115 H Lactic Acid Calcium 7.6 L Phosphorus Magnesium Ferritin Direct Bilirubin AST ALT Alkaline Phosphatase Lactate Dehydrogenase Total Creatine Kinase C-Reactive Protein Total Protein Albumin Triglycerides Arterial Blood Glucose Arterial Blood Ionized Calcium Urine Creatinine Urine Chloride Vancomycin Trough Coronavirus (PCR) Crossmatch 06/27/20 06/27/20 06/27/20 17:32 18:30 23:24 WBC RBC Hgb Hct MCHC RDW Lymph % (Auto) [place] % (Auto) Lymph # (Auto) [place] # (Auto) Eos # (Auto) Seg Neutrophils % Seg Neuts % (Manual) Lymphocytes % (Manual) Monocytes % (Manual) Nucleated RBC % Seg Neutrophils # Seg Neutrophils # Man Lymphocytes # (Manual) Monocytes # (Manual) Eosinophils # (Manual) PT INR APTT D-Dimer Heparin Anti-Xa Level ABG pH POC ABG pCO2 POC ABG pO2 ABG pO2 ABG HCO3 ABG Hemoglobin ABG Oxyhemoglobin ABG Sodium ABG Potassium ABG Chloride ABG Glucose Carboxyhemoglobin Sodium Potassium 7.3 H* Chloride Carbon Dioxide BUN Creatinine Glucose POC Glucose 122 H 116 H Lactic Acid Calcium Phosphorus Magnesium Ferritin Direct Bilirubin AST ALT Alkaline Phosphatase Lactate Dehydrogenase Total Creatine Kinase C-Reactive Protein Total Protein Albumin Triglycerides Arterial Blood Glucose Arterial Blood Ionized Calcium Urine Creatinine Urine Chloride Vancomycin Trough Coronavirus (PCR) Crossmatch 06/28/20 06/28/20 06/28/20 00:00 02:16 05:37 WBC RBC Hgb Hct MCHC RDW Lymph % (Auto) [place] % (Auto) Lymph # (Auto) [place] # (Auto) Eos # (Auto) Seg Neutrophils % Seg Neuts % (Manual) Lymphocytes % (Manual) Monocytes % (Manual) Nucleated RBC % Seg Neutrophils # Seg Neutrophils # Man Lymphocytes # (Manual) Monocytes # (Manual) Eosinophils # (Manual) PT INR APTT D-Dimer Heparin Anti-Xa Level ABG pH POC ABG pCO2 POC ABG pO2 79.0 L ABG pO2 ABG HCO3 ABG Hemoglobin 11.7 L ABG Oxyhemoglobin ABG Sodium 128.1 L ABG Potassium 6.6 H ABG Chloride ABG Glucose 124 H Carboxyhemoglobin Sodium Potassium 7.3 H* Chloride Carbon Dioxide BUN Creatinine Glucose POC Glucose 115 H Lactic Acid Calcium Phosphorus Magnesium Ferritin Direct Bilirubin AST ALT Alkaline Phosphatase Lactate Dehydrogenase Total Creatine Kinase C-Reactive Protein Total Protein Albumin Triglycerides Arterial Blood Glucose 124 H Arterial Blood Ionized Calcium 4.2 L Urine Creatinine Urine Chloride Vancomycin Trough Coronavirus (PCR) Crossmatch 06/28/20 06/28/20 06/28/20 10:03 10:03 11:51 WBC 33.6 H RBC 3.03 L Hgb 8.9 L Hct 27.0 L MCHC RDW Lymph % (Auto) [place] % (Auto) Lymph # (Auto) [place] # (Auto) Eos # (Auto) Seg Neutrophils % Seg Neuts % (Manual) Lymphocytes % (Manual) Monocytes % (Manual) Nucleated RBC % Seg Neutrophils # Seg Neutrophils # Man Lymphocytes # (Manual) Monocytes # (Manual) Eosinophils # (Manual) PT INR APTT D-Dimer Heparin Anti-Xa Level ABG pH POC ABG pCO2 POC ABG pO2 ABG pO2 ABG HCO3 ABG Hemoglobin ABG Oxyhemoglobin ABG Sodium ABG Potassium ABG Chloride ABG Glucose Carboxyhemoglobin Sodium 136 L Potassium 6.5 H* Chloride Carbon Dioxide 20 L BUN 129 H Creatinine 5.8 H Glucose 113 H POC Glucose 107 H Lactic Acid Calcium 7.6 L Phosphorus Magnesium Ferritin Direct Bilirubin AST ALT Alkaline Phosphatase Lactate Dehydrogenase Total Creatine Kinase C-Reactive Protein Total Protein Albumin Triglycerides Arterial Blood Glucose Arterial Blood Ionized Calcium Urine Creatinine Urine Chloride Vancomycin Trough Coronavirus (PCR) Crossmatch 06/28/20 06/28/20 06/29/20 17:45 Unknown 03:15 WBC RBC Hgb Hct MCHC RDW Lymph % (Auto) [place] % (Auto) Lymph # (Auto) [place] # (Auto) Eos # (Auto) Seg Neutrophils % Seg Neuts % (Manual) Lymphocytes % (Manual) Monocytes % (Manual) Nucleated RBC % Seg Neutrophils # Seg Neutrophils # Man Lymphocytes # (Manual) Monocytes # (Manual) Eosinophils # (Manual) PT INR APTT D-Dimer Heparin Anti-Xa Level ABG pH POC ABG pCO2 POC ABG pO2 ABG pO2 ABG HCO3 ABG Hemoglobin 7.8 L ABG Oxyhemoglobin ABG Sodium 127.4 L ABG Potassium 5.5 H ABG Chloride 97.0 L ABG Glucose 96 H Carboxyhemoglobin Sodium Potassium 5.4 H Chloride Carbon Dioxide BUN Creatinine Glucose POC Glucose 117 H Lactic Acid Calcium Phosphorus Magnesium Ferritin Direct Bilirubin AST ALT Alkaline Phosphatase Lactate Dehydrogenase Total Creatine Kinase C-Reactive Protein Total Protein Albumin Triglycerides Arterial Blood Glucose 96 H Arterial Blood Ionized Calcium 4.0 L Urine Creatinine Urine Chloride Vancomycin Trough Coronavirus (PCR) Crossmatch 06/29/20 06/29/20 06/29/20 03:45 Unknown Unknown WBC RBC Hgb Hct MCHC RDW Lymph % (Auto) [place] % (Auto) Lymph # (Auto) [place] # (Auto) Eos # (Auto) Seg Neutrophils % Seg Neuts % (Manual) Lymphocytes % (Manual) Monocytes % (Manual) Nucleated RBC % Seg Neutrophils # Seg Neutrophils # Man Lymphocytes # (Manual) Monocytes # (Manual) Eosinophils # (Manual) PT INR APTT D-Dimer Heparin Anti-Xa Level ABG pH POC ABG pCO2 POC ABG pO2 ABG pO2 ABG HCO3 ABG Hemoglobin ABG Oxyhemoglobin ABG Sodium ABG Potassium ABG Chloride ABG Glucose Carboxyhemoglobin Sodium 135 L Potassium 6.0 H 6.1 H* Chloride 94.8 L Carbon Dioxide BUN 109 H 114 H Creatinine 5.5 H Glucose POC Glucose Lactic Acid Calcium 7.4 L Phosphorus Magnesium Ferritin Direct Bilirubin AST 47 H ALT Alkaline Phosphatase Lactate Dehydrogenase Total Creatine Kinase C-Reactive Protein Total Protein 4.9 L Albumin 2.2 L Triglycerides Arterial Blood Glucose Arterial Blood Ionized Calcium Urine Creatinine Urine Chloride Vancomycin Trough Coronavirus (PCR) Crossmatch 06/29/20 06/29/20 06/30/20 Unknown Unknown 03:32 WBC 20.7 H RBC 2.57 L Hgb 7.6 L Hct 23.0 L MCHC RDW Lymph % (Auto) [place] % (Auto) Lymph # (Auto) [place] # (Auto) Eos # (Auto) Seg Neutrophils % Seg Neuts % (Manual) Lymphocytes % (Manual) Monocytes % (Manual) Nucleated RBC % Seg Neutrophils # Seg Neutrophils # Man Lymphocytes # (Manual) Monocytes # (Manual) Eosinophils # (Manual) PT INR APTT D-Dimer Heparin Anti-Xa Level ABG pH POC ABG pCO2 POC ABG pO2 ABG pO2 ABG HCO3 ABG Hemoglobin 11.4 L ABG Oxyhemoglobin ABG Sodium 130.1 L ABG Potassium 5.0 H ABG Chloride ABG Glucose Carboxyhemoglobin Sodium Potassium Chloride Carbon Dioxide BUN Creatinine Glucose POC Glucose Lactic Acid Calcium Phosphorus Magnesium Ferritin Direct Bilirubin AST ALT Alkaline Phosphatase Lactate Dehydrogenase Total Creatine Kinase 618 H C-Reactive Protein Total Protein Albumin Triglycerides Arterial Blood Glucose Arterial Blood Ionized Calcium 3.9 L Urine Creatinine Urine Chloride Vancomycin Trough Coronavirus (PCR) Crossmatch 06/30/20 06/30/20 06/30/20 03:50 03:50 11:39 WBC 13.1 H RBC Hgb Hct MCHC RDW Lymph % (Auto) [place] % (Auto) Lymph # (Auto) [place] # (Auto) Eos # (Auto) Seg Neutrophils % Seg Neuts % (Manual) 95.0 H Lymphocytes % (Manual) 3.0 L Monocytes % (Manual) Nucleated RBC % Seg Neutrophils # Seg Neutrophils # Man 12.4 H Lymphocytes # (Manual) 0.4 L Monocytes # (Manual) Eosinophils # (Manual) PT INR APTT D-Dimer Heparin Anti-Xa Level ABG pH POC ABG pCO2 POC ABG pO2 ABG pO2 ABG HCO3 ABG Hemoglobin ABG Oxyhemoglobin ABG Sodium ABG Potassium ABG Chloride ABG Glucose Carboxyhemoglobin Sodium 135 L Potassium 5.4 H D Chloride 93.6 L Carbon Dioxide BUN 85 H Creatinine 4.6 H Glucose POC Glucose 111 H Lactic Acid Calcium 7.1 L Phosphorus 9.40 H Magnesium Ferritin Direct Bilirubin AST ALT Alkaline Phosphatase Lactate Dehydrogenase Total Creatine Kinase C-Reactive Protein Total Protein Albumin Triglycerides Arterial Blood Glucose Arterial Blood Ionized Calcium Urine Creatinine Urine Chloride Vancomycin Trough Coronavirus (PCR) Crossmatch 06/30/20 06/30/20 07/01/20 13:12 Unknown 03:19 WBC RBC Hgb 7.8 L D Hct 23.2 L D MCHC RDW Lymph % (Auto) [place] % (Auto) Lymph # (Auto) [place] # (Auto) Eos # (Auto) Seg Neutrophils % Seg Neuts % (Manual) Lymphocytes % (Manual) Monocytes % (Manual) Nucleated RBC % Seg Neutrophils # Seg Neutrophils # Man Lymphocytes # (Manual) Monocytes # (Manual) Eosinophils # (Manual) PT INR APTT D-Dimer Heparin Anti-Xa Level ABG pH 7.461 H POC ABG pCO2 POC ABG pO2 77.2 L ABG pO2 ABG HCO3 ABG Hemoglobin 6.9 L ABG Oxyhemoglobin ABG Sodium 128.5 L ABG Potassium ABG Chloride 97.0 L ABG Glucose Carboxyhemoglobin Sodium Potassium Chloride Carbon Dioxide BUN Creatinine Glucose POC Glucose Lactic Acid Calcium Phosphorus Magnesium Ferritin Direct Bilirubin AST ALT Alkaline Phosphatase Lactate Dehydrogenase Total Creatine Kinase C-Reactive Protein Total Protein Albumin Triglycerides Arterial Blood Glucose Arterial Blood Ionized Calcium 3.7 L Urine Creatinine Urine Chloride Vancomycin Trough Coronavirus (PCR) Positive A Crossmatch 07/01/20 07/01/20 07/01/20 06:00 06:00 11:04 WBC 16.7 H RBC 2.16 L Hgb 6.4 L Hct 19.2 L* MCHC RDW Lymph % (Auto) [place] % (Auto) Lymph # (Auto) [place] # (Auto) Eos # (Auto) Seg Neutrophils % Seg Neuts % (Manual) Lymphocytes % (Manual) Monocytes % (Manual) Nucleated RBC % Seg Neutrophils # Seg Neutrophils # Man Lymphocytes # (Manual) Monocytes # (Manual) Eosinophils # (Manual) PT INR APTT D-Dimer Heparin Anti-Xa Level ABG pH POC ABG pCO2 POC ABG pO2 ABG pO2 ABG HCO3 ABG Hemoglobin ABG Oxyhemoglobin ABG Sodium ABG Potassium ABG Chloride ABG Glucose Carboxyhemoglobin Sodium 136 L Potassium Chloride 95.8 L Carbon Dioxide BUN 72 H Creatinine 4.3 H Glucose POC Glucose Lactic Acid Calcium 6.7 L Phosphorus Magnesium Ferritin Direct Bilirubin AST ALT Alkaline Phosphatase Lactate Dehydrogenase Total Creatine Kinase C-Reactive Protein Total Protein Albumin Triglycerides 250 H Arterial Blood Glucose Arterial Blood Ionized Calcium Urine Creatinine Urine Chloride Vancomycin Trough Coronavirus (PCR) Crossmatch See Detail 07/02/20 07/02/20 07/02/20 04:44 06:00 11:33 WBC 14.6 H RBC 2.47 L Hgb 7.4 L Hct 21.8 L MCHC RDW Lymph % (Auto) [place] % (Auto) Lymph # (Auto) [place] # (Auto) Eos # (Auto) Seg Neutrophils % Seg Neuts % (Manual) Lymphocytes % (Manual) Monocytes % (Manual) Nucleated RBC % Seg Neutrophils # Seg Neutrophils # Man Lymphocytes # (Manual) Monocytes # (Manual) Eosinophils # (Manual) PT INR APTT D-Dimer Heparin Anti-Xa Level ABG pH 7.457 H POC ABG pCO2 POC ABG pO2 79.4 L ABG pO2 ABG HCO3 ABG Hemoglobin 8.5 L ABG Oxyhemoglobin ABG Sodium 128.4 L ABG Potassium ABG Chloride 97.0 L ABG Glucose 100 H Carboxyhemoglobin Sodium 133 L Potassium 5.2 H Chloride 93.3 L Carbon Dioxide BUN 66 H Creatinine 4.1 H Glucose 102 H POC Glucose Lactic Acid Calcium 7.2 L Phosphorus Magnesium Ferritin Direct Bilirubin AST ALT Alkaline Phosphatase Lactate Dehydrogenase Total Creatine Kinase C-Reactive Protein Total Protein Albumin Triglycerides Arterial Blood Glucose 100 H Arterial Blood Ionized Calcium 3.9 L Urine Creatinine Urine Chloride Vancomycin Trough Coronavirus (PCR) Crossmatch 07/02/20 07/03/20 07/03/20 11:33 03:54 09:15 WBC 16.6 H RBC 2.44 L Hgb 7.3 L Hct 21.4 L MCHC RDW Lymph % (Auto) [place] % (Auto) Lymph # (Auto) [place] # (Auto) Eos # (Auto) Seg Neutrophils % Seg Neuts % (Manual) Lymphocytes % (Manual) Monocytes % (Manual) Nucleated RBC % Seg Neutrophils # Seg Neutrophils # Man Lymphocytes # (Manual) Monocytes # (Manual) Eosinophils # (Manual) PT INR APTT D-Dimer Heparin Anti-Xa Level ABG pH POC ABG pCO2 POC ABG pO2 66.1 L ABG pO2 ABG HCO3 ABG Hemoglobin 8.0 L ABG Oxyhemoglobin ABG Sodium 124.6 L ABG Potassium 5.5 H ABG Chloride 96.0 L ABG Glucose 111 H Carboxyhemoglobin Sodium Potassium Chloride Carbon Dioxide BUN Creatinine Glucose POC Glucose Lactic Acid Calcium Phosphorus Magnesium Ferritin Direct Bilirubin 0.7 H AST 94 H ALT 60 H Alkaline Phosphatase Lactate Dehydrogenase Total Creatine Kinase C-Reactive Protein Total Protein 4.4 L Albumin 1.9 L Triglycerides Arterial Blood Glucose 111 H Arterial Blood Ionized Calcium 3.8 L Urine Creatinine Urine Chloride Vancomycin Trough Coronavirus (PCR) Crossmatch 07/03/20 07/03/20 07/03/20 09:15 10:10 14:50 WBC RBC Hgb Hct MCHC RDW Lymph % (Auto) [place] % (Auto) Lymph # (Auto) [place] # (Auto) Eos # (Auto) Seg Neutrophils % Seg Neuts % (Manual) Lymphocytes % (Manual) Monocytes % (Manual) Nucleated RBC % Seg Neutrophils # Seg Neutrophils # Man Lymphocytes # (Manual) Monocytes # (Manual) Eosinophils # (Manual) PT INR APTT D-Dimer 6608.00 H Heparin Anti-Xa Level ABG pH POC ABG pCO2 POC ABG pO2 ABG pO2 ABG HCO3 ABG Hemoglobin ABG Oxyhemoglobin ABG Sodium ABG Potassium ABG Chloride ABG Glucose Carboxyhemoglobin Sodium 133 L Potassium 6.2 H* Chloride 93.1 L Carbon Dioxide BUN 89 H Creatinine 5.1 H Glucose POC Glucose Lactic Acid Calcium 7.0 L Phosphorus Magnesium Ferritin Direct Bilirubin AST ALT Alkaline Phosphatase Lactate Dehydrogenase Total Creatine Kinase C-Reactive Protein Total Protein Albumin Triglycerides Arterial Blood Glucose Arterial Blood Ionized Calcium Urine Creatinine Urine Chloride Vancomycin Trough Coronavirus (PCR) Positive A Crossmatch 07/03/20 07/03/20 07/03/20 14:50 14:50 14:50 WBC RBC Hgb Hct MCHC RDW Lymph % (Auto) [place] % (Auto) Lymph # (Auto) [place] # (Auto) Eos # (Auto) Seg Neutrophils % Seg Neuts % (Manual) Lymphocytes % (Manual) Monocytes % (Manual) Nucleated RBC % Seg Neutrophils # Seg Neutrophils # Man Lymphocytes # (Manual) Monocytes # (Manual) Eosinophils # (Manual) PT INR APTT D-Dimer Heparin Anti-Xa Level ABG pH POC ABG pCO2 POC ABG pO2 ABG pO2 ABG HCO3 ABG Hemoglobin ABG Oxyhemoglobin ABG Sodium ABG Potassium ABG Chloride ABG Glucose Carboxyhemoglobin Sodium Potassium Chloride Carbon Dioxide BUN Creatinine Glucose POC Glucose Lactic Acid < 0.20 L Calcium Phosphorus Magnesium Ferritin 1171.0 H Direct Bilirubin AST ALT Alkaline Phosphatase Lactate Dehydrogenase 525 H Total Creatine Kinase C-Reactive Protein 31.50 H Total Protein Albumin Triglycerides Arterial Blood Glucose Arterial Blood Ionized Calcium Urine Creatinine Urine Chloride Vancomycin Trough Coronavirus (PCR) Crossmatch 07/03/20 07/04/20 07/04/20 16:47 05:20 05:20 WBC 11.8 H RBC 2.32 L Hgb 6.7 L Hct 20.8 L MCHC RDW Lymph % (Auto) 2.6 L [place] % (Auto) Lymph # (Auto) 0.3 L [place] # (Auto) Eos # (Auto) Seg Neutrophils % Seg Neuts % (Manual) Lymphocytes % (Manual) Monocytes % (Manual) Nucleated RBC % Seg Neutrophils # 11.0 H Seg Neutrophils # Man Lymphocytes # (Manual) Monocytes # (Manual) Eosinophils # (Manual) PT INR APTT D-Dimer Heparin Anti-Xa Level ABG pH POC ABG pCO2 POC ABG pO2 ABG pO2 ABG HCO3 ABG Hemoglobin ABG Oxyhemoglobin ABG Sodium ABG Potassium ABG Chloride ABG Glucose Carboxyhemoglobin Sodium Potassium 6.0 H Chloride 97.8 L Carbon Dioxide BUN 75 H Creatinine 4.5 H Glucose 121 H POC Glucose 107 H Lactic Acid Calcium 7.9 L Phosphorus Magnesium Ferritin Direct Bilirubin AST ALT Alkaline Phosphatase Lactate Dehydrogenase Total Creatine Kinase C-Reactive Protein Total Protein Albumin Triglycerides Arterial Blood Glucose Arterial Blood Ionized Calcium Urine Creatinine Urine Chloride Vancomycin Trough Coronavirus (PCR) Crossmatch 07/04/20 07/04/20 07/04/20 05:20 05:50 09:25 WBC RBC Hgb Hct MCHC RDW Lymph % (Auto) [place] % (Auto) Lymph # (Auto) [place] # (Auto) Eos # (Auto) Seg Neutrophils % Seg Neuts % (Manual) Lymphocytes % (Manual) Monocytes % (Manual) Nucleated RBC % Seg Neutrophils # Seg Neutrophils # Man Lymphocytes # (Manual) Monocytes # (Manual) Eosinophils # (Manual) PT INR APTT D-Dimer Heparin Anti-Xa Level ABG pH 7.324 L POC ABG pCO2 POC ABG pO2 ABG pO2 98.9 H ABG HCO3 26.8 H ABG Hemoglobin < 5.1 L ABG Oxyhemoglobin ABG Sodium ABG Potassium ABG Chloride ABG Glucose Carboxyhemoglobin Sodium Potassium Chloride Carbon Dioxide BUN Creatinine Glucose POC Glucose 114 H Lactic Acid Calcium Phosphorus Magnesium Ferritin Direct Bilirubin AST ALT Alkaline Phosphatase Lactate Dehydrogenase Total Creatine Kinase C-Reactive Protein Total Protein Albumin Triglycerides Arterial Blood Glucose Arterial Blood Ionized Calcium Urine Creatinine Urine Chloride Vancomycin Trough Coronavirus (PCR) Crossmatch See Detail 07/04/20 07/04/20 07/04/20 12:33 17:41 23:04 WBC RBC Hgb Hct MCHC RDW Lymph % (Auto) [place] % (Auto) Lymph # (Auto) [place] # (Auto) Eos # (Auto) Seg Neutrophils % Seg Neuts % (Manual) Lymphocytes % (Manual) Monocytes % (Manual) Nucleated RBC % Seg Neutrophils # Seg Neutrophils # Man Lymphocytes # (Manual) Monocytes # (Manual) Eosinophils # (Manual) PT INR APTT D-Dimer Heparin Anti-Xa Level ABG pH POC ABG pCO2 POC ABG pO2 ABG pO2 ABG HCO3 ABG Hemoglobin ABG Oxyhemoglobin ABG Sodium ABG Potassium ABG Chloride ABG Glucose Carboxyhemoglobin Sodium Potassium Chloride Carbon Dioxide BUN Creatinine Glucose POC Glucose 119 H 109 H 116 H Lactic Acid Calcium Phosphorus Magnesium Ferritin Direct Bilirubin AST ALT Alkaline Phosphatase Lactate Dehydrogenase Total Creatine Kinase C-Reactive Protein Total Protein Albumin Triglycerides Arterial Blood Glucose Arterial Blood Ionized Calcium Urine Creatinine Urine Chloride Vancomycin Trough Coronavirus (PCR) Crossmatch 07/05/20 07/05/20 07/05/20 04:30 08:21 08:21 WBC RBC 2.77 L Hgb 7.9 L Hct 23.9 L MCHC RDW 16.7 H Lymph % (Auto) 7.5 L [place] % (Auto) Lymph # (Auto) 0.7 L [place] # (Auto) Eos # (Auto) Seg Neutrophils % 85.8 H Seg Neuts % (Manual) Lymphocytes % (Manual) Monocytes % (Manual) Nucleated RBC % Seg Neutrophils # 7.8 H Seg Neutrophils # Man Lymphocytes # (Manual) Monocytes # (Manual) Eosinophils # (Manual) PT INR APTT D-Dimer Heparin Anti-Xa Level ABG pH 7.295 L POC ABG pCO2 POC ABG pO2 ABG pO2 151.9 H ABG HCO3 26.8 H ABG Hemoglobin 7.3 L ABG Oxyhemoglobin ABG Sodium ABG Potassium ABG Chloride ABG Glucose Carboxyhemoglobin Sodium Potassium Chloride Carbon Dioxide BUN Creatinine Glucose POC Glucose Lactic Acid Calcium Phosphorus Magnesium Ferritin Direct Bilirubin AST ALT Alkaline Phosphatase Lactate Dehydrogenase Total Creatine Kinase C-Reactive Protein Total Protein Albumin Triglycerides 258 H Arterial Blood Glucose Arterial Blood Ionized Calcium Urine Creatinine Urine Chloride Vancomycin Trough Coronavirus (PCR) Crossmatch 07/05/20 07/05/20 07/06/20 08:21 12:12 04:29 WBC RBC Hgb Hct MCHC RDW Lymph % (Auto) [place] % (Auto) Lymph # (Auto) [place] # (Auto) Eos # (Auto) Seg Neutrophils % Seg Neuts % (Manual) Lymphocytes % (Manual) Monocytes % (Manual) Nucleated RBC % Seg Neutrophils # Seg Neutrophils # Man Lymphocytes # (Manual) Monocytes # (Manual) Eosinophils # (Manual) PT INR APTT D-Dimer Heparin Anti-Xa Level ABG pH 7.291 L POC ABG pCO2 51.3 H POC ABG pO2 ABG pO2 ABG HCO3 ABG Hemoglobin 8.5 L ABG Oxyhemoglobin ABG Sodium 129.6 L ABG Potassium 4.8 H ABG Chloride 96.0 L ABG Glucose Carboxyhemoglobin Sodium 133 L Potassium 5.6 H Chloride 94.4 L Carbon Dioxide BUN 80 H Creatinine 4.2 H Glucose 114 H POC Glucose 106 H Lactic Acid Calcium 7.6 L Phosphorus Magnesium Ferritin Direct Bilirubin 0.5 H AST 75 H ALT 86 H Alkaline Phosphatase Lactate Dehydrogenase Total Creatine Kinase C-Reactive Protein Total Protein 5.6 L D Albumin 1.9 L Triglycerides Arterial Blood Glucose Arterial Blood Ionized Calcium 4.2 L Urine Creatinine Urine Chloride Vancomycin Trough Coronavirus (PCR) Crossmatch 07/06/20 07/06/20 07/06/20 11:35 11:35 12:16 WBC RBC 2.54 L Hgb 7.5 L Hct 21.5 L MCHC 35 H RDW 15.7 H Lymph % (Auto) [place] % (Auto) Lymph # (Auto) [place] # (Auto) Eos # (Auto) Seg Neutrophils % Seg Neuts % (Manual) Lymphocytes % (Manual) Monocytes % (Manual) Nucleated RBC % Seg Neutrophils # Seg Neutrophils # Man Lymphocytes # (Manual) Monocytes # (Manual) Eosinophils # (Manual) PT INR APTT D-Dimer Heparin Anti-Xa Level ABG pH POC ABG pCO2 POC ABG pO2 ABG pO2 ABG HCO3 ABG Hemoglobin ABG Oxyhemoglobin ABG Sodium ABG Potassium ABG Chloride ABG Glucose Carboxyhemoglobin Sodium 130 L Potassium Chloride 92.2 L Carbon Dioxide 19 L D BUN 107 H Creatinine 5.1 H Glucose 106 H POC Glucose 106 H Lactic Acid Calcium 7.5 L Phosphorus Magnesium Ferritin Direct Bilirubin AST ALT Alkaline Phosphatase Lactate Dehydrogenase Total Creatine Kinase C-Reactive Protein Total Protein Albumin Triglycerides Arterial Blood Glucose Arterial Blood Ionized Calcium Urine Creatinine Urine Chloride Vancomycin Trough Coronavirus (PCR) Crossmatch 07/06/20 07/06/20 07/06/20 17:01 21:56 23:41 WBC RBC Hgb Hct MCHC RDW Lymph % (Auto) [place] % (Auto) Lymph # (Auto) [place] # (Auto) Eos # (Auto) Seg Neutrophils % Seg Neuts % (Manual) Lymphocytes % (Manual) Monocytes % (Manual) Nucleated RBC % Seg Neutrophils # Seg Neutrophils # Man Lymphocytes # (Manual) Monocytes # (Manual) Eosinophils # (Manual) PT INR APTT D-Dimer Heparin Anti-Xa Level ABG pH POC ABG pCO2 POC ABG pO2 ABG pO2 ABG HCO3 ABG Hemoglobin ABG Oxyhemoglobin ABG Sodium ABG Potassium ABG Chloride ABG Glucose Carboxyhemoglobin Sodium 135 L Potassium 5.1 H Chloride Carbon Dioxide BUN 73 H Creatinine 4.0 H Glucose 112 H POC Glucose 109 H 111 H Lactic Acid Calcium 7.8 L Phosphorus Magnesium Ferritin Direct Bilirubin AST ALT Alkaline Phosphatase Lactate Dehydrogenase Total Creatine Kinase C-Reactive Protein Total Protein Albumin Triglycerides Arterial Blood Glucose Arterial Blood Ionized Calcium Urine Creatinine Urine Chloride Vancomycin Trough Coronavirus (PCR) Crossmatch 07/07/20 07/07/20 07/07/20 04:18 05:04 05:29 WBC RBC 2.46 L Hgb 7.6 L Hct 21.5 L MCHC 35 H RDW 16.5 H Lymph % (Auto) [place] % (Auto) Lymph # (Auto) [place] # (Auto) Eos # (Auto) Seg Neutrophils % Seg Neuts % (Manual) 82.0 H Lymphocytes % (Manual) Monocytes % (Manual) Nucleated RBC % 1.0 H Seg Neutrophils # Seg Neutrophils # Man Lymphocytes # (Manual) 1.1 L Monocytes # (Manual) Eosinophils # (Manual) PT INR APTT D-Dimer Heparin Anti-Xa Level ABG pH POC ABG pCO2 POC ABG pO2 79.6 L ABG pO2 ABG HCO3 ABG Hemoglobin 8.2 L ABG Oxyhemoglobin ABG Sodium 133.3 L ABG Potassium 4.7 H ABG Chloride ABG Glucose 135 H Carboxyhemoglobin Sodium Potassium Chloride Carbon Dioxide BUN Creatinine Glucose POC Glucose 112 H Lactic Acid Calcium Phosphorus Magnesium Ferritin Direct Bilirubin AST ALT Alkaline Phosphatase Lactate Dehydrogenase Total Creatine Kinase C-Reactive Protein Total Protein Albumin Triglycerides Arterial Blood Glucose 135 H Arterial Blood Ionized Calcium 4.5 L Urine Creatinine Urine Chloride Vancomycin Trough Coronavirus (PCR) Crossmatch 07/07/20 07/07/20 07/07/20 10:17 12:18 17:43 WBC RBC Hgb Hct MCHC RDW Lymph % (Auto) [place] % (Auto) Lymph # (Auto) [place] # (Auto) Eos # (Auto) Seg Neutrophils % Seg Neuts % (Manual) Lymphocytes % (Manual) Monocytes % (Manual) Nucleated RBC % Seg Neutrophils # Seg Neutrophils # Man Lymphocytes # (Manual) Monocytes # (Manual) Eosinophils # (Manual) PT INR APTT D-Dimer Heparin Anti-Xa Level ABG pH POC ABG pCO2 POC ABG pO2 ABG pO2 ABG HCO3 ABG Hemoglobin ABG Oxyhemoglobin ABG Sodium ABG Potassium ABG Chloride ABG Glucose Carboxyhemoglobin Sodium 136 L Potassium Chloride 96.8 L Carbon Dioxide BUN 82 H Creatinine 4.3 H Glucose 129 H POC Glucose 108 H 116 H Lactic Acid Calcium 7.8 L Phosphorus Magnesium Ferritin Direct Bilirubin AST ALT Alkaline Phosphatase Lactate Dehydrogenase Total Creatine Kinase C-Reactive Protein Total Protein Albumin Triglycerides Arterial Blood Glucose Arterial Blood Ionized Calcium Urine Creatinine Urine Chloride Vancomycin Trough Coronavirus (PCR) Crossmatch 07/07/20 07/08/20 07/08/20 23:31 04:00 04:00 WBC RBC 2.52 L Hgb 7.3 L Hct 22.2 L MCHC RDW 16.6 H Lymph % (Auto) 11.5 L [place] % (Auto) Lymph # (Auto) [place] # (Auto) Eos # (Auto) Seg Neutrophils % 78.2 H Seg Neuts % (Manual) Lymphocytes % (Manual) Monocytes % (Manual) Nucleated RBC % Seg Neutrophils # 8.0 H Seg Neutrophils # Man Lymphocytes # (Manual) Monocytes # (Manual) Eosinophils # (Manual) PT INR APTT D-Dimer Heparin Anti-Xa Level ABG pH POC ABG pCO2 POC ABG pO2 ABG pO2 ABG HCO3 ABG Hemoglobin ABG Oxyhemoglobin ABG Sodium ABG Potassium ABG Chloride ABG Glucose Carboxyhemoglobin Sodium 132 L Potassium 5.4 H Chloride 92.5 L Carbon Dioxide BUN 98 H Creatinine 4.9 H Glucose 105 H POC Glucose 117 H Lactic Acid Calcium 7.9 L Phosphorus Magnesium Ferritin Direct Bilirubin AST ALT Alkaline Phosphatase Lactate Dehydrogenase Total Creatine Kinase C-Reactive Protein Total Protein Albumin Triglycerides Arterial Blood Glucose Arterial Blood Ionized Calcium Urine Creatinine Urine Chloride Vancomycin Trough Coronavirus (PCR) Crossmatch 07/08/20 07/08/20 07/08/20 04:09 11:34 17:05 WBC RBC Hgb Hct MCHC RDW Lymph % (Auto) [place] % (Auto) Lymph # (Auto) [place] # (Auto) Eos # (Auto) Seg Neutrophils % Seg Neuts % (Manual) Lymphocytes % (Manual) Monocytes % (Manual) Nucleated RBC % Seg Neutrophils # Seg Neutrophils # Man Lymphocytes # (Manual) Monocytes # (Manual) Eosinophils # (Manual) PT INR APTT D-Dimer Heparin Anti-Xa Level ABG pH 7.220 L POC ABG pCO2 60.5 H POC ABG pO2 ABG pO2 ABG HCO3 ABG Hemoglobin 8.2 L ABG Oxyhemoglobin ABG Sodium 131.3 L ABG Potassium 5.2 H ABG Chloride ABG Glucose 103 H Carboxyhemoglobin Sodium Potassium Chloride Carbon Dioxide BUN Creatinine Glucose POC Glucose 140 H 125 H Lactic Acid Calcium Phosphorus Magnesium Ferritin Direct Bilirubin AST ALT Alkaline Phosphatase Lactate Dehydrogenase Total Creatine Kinase C-Reactive Protein Total Protein Albumin Triglycerides Arterial Blood Glucose 103 H Arterial Blood Ionized Calcium 4.3 L Urine Creatinine Urine Chloride Vancomycin Trough Coronavirus (PCR) Crossmatch 07/08/20 07/08/20 07/09/20 20:21 23:43 05:10 WBC RBC Hgb Hct MCHC RDW Lymph % (Auto) [place] % (Auto) Lymph # (Auto) [place] # (Auto) Eos # (Auto) Seg Neutrophils % Seg Neuts % (Manual) Lymphocytes % (Manual) Monocytes % (Manual) Nucleated RBC % Seg Neutrophils # Seg Neutrophils # Man Lymphocytes # (Manual) Monocytes # (Manual) Eosinophils # (Manual) PT INR APTT D-Dimer Heparin Anti-Xa Level ABG pH 7.20 L POC ABG pCO2 69.8 H POC ABG pO2 138.9 H 76.1 L ABG pO2 ABG HCO3 ABG Hemoglobin 11.9 L 8.4 L ABG Oxyhemoglobin ABG Sodium 133.1 L 131.2 L ABG Potassium 5.0 H 4.7 H ABG Chloride ABG Glucose 120 H 102 H Carboxyhemoglobin Sodium Potassium Chloride Carbon Dioxide BUN Creatinine Glucose POC Glucose 118 H Lactic Acid Calcium Phosphorus Magnesium Ferritin Direct Bilirubin AST ALT Alkaline Phosphatase Lactate Dehydrogenase Total Creatine Kinase C-Reactive Protein Total Protein Albumin Triglycerides Arterial Blood Glucose 120 H 102 H Arterial Blood Ionized Calcium 4.4 L 4.3 L Urine Creatinine Urine Chloride Vancomycin Trough Coronavirus (PCR) Crossmatch 07/09/20 07/09/20 07/09/20 11:51 17:04 21:00 WBC RBC Hgb Hct MCHC RDW Lymph % (Auto) [place] % (Auto) Lymph # (Auto) [place] # (Auto) Eos # (Auto) Seg Neutrophils % Seg Neuts % (Manual) Lymphocytes % (Manual) Monocytes % (Manual) Nucleated RBC % Seg Neutrophils # Seg Neutrophils # Man Lymphocytes # (Manual) Monocytes # (Manual) Eosinophils # (Manual) PT INR APTT D-Dimer Heparin Anti-Xa Level ABG pH POC ABG pCO2 POC ABG pO2 114.2 H ABG pO2 ABG HCO3 ABG Hemoglobin 7.8 L ABG Oxyhemoglobin ABG Sodium 132.3 L ABG Potassium 4.6 H ABG Chloride ABG Glucose Carboxyhemoglobin Sodium Potassium Chloride Carbon Dioxide BUN Creatinine Glucose POC Glucose 113 H 111 H Lactic Acid Calcium Phosphorus Magnesium Ferritin Direct Bilirubin AST ALT Alkaline Phosphatase Lactate Dehydrogenase Total Creatine Kinase C-Reactive Protein Total Protein Albumin Triglycerides Arterial Blood Glucose Arterial Blood Ionized Calcium 4.4 L Urine Creatinine Urine Chloride Vancomycin Trough Coronavirus (PCR) Crossmatch 07/10/20 07/10/20 07/10/20 03:49 03:55 03:55 WBC 18.1 H RBC 2.37 L Hgb 6.8 L Hct 20.7 L MCHC RDW 16.9 H Lymph % (Auto) [place] % (Auto) Lymph # (Auto) [place] # (Auto) Eos # (Auto) Seg Neutrophils % Seg Neuts % (Manual) 79.0 H Lymphocytes % (Manual) 10.0 L Monocytes % (Manual) Nucleated RBC % 1.0 H Seg Neutrophils # Seg Neutrophils # Man 14.3 H Lymphocytes # (Manual) Monocytes # (Manual) Eosinophils # (Manual) 0.7 H PT INR APTT D-Dimer Heparin Anti-Xa Level ABG pH POC ABG pCO2 POC ABG pO2 ABG pO2 ABG HCO3 ABG Hemoglobin 7.7 L ABG Oxyhemoglobin ABG Sodium 130.3 L ABG Potassium 4.6 H ABG Chloride ABG Glucose Carboxyhemoglobin Sodium 136 L Potassium Chloride 96.0 L Carbon Dioxide BUN 76 H Creatinine 3.6 H Glucose POC Glucose Lactic Acid Calcium 7.4 L Phosphorus Magnesium Ferritin Direct Bilirubin AST ALT Alkaline Phosphatase Lactate Dehydrogenase Total Creatine Kinase C-Reactive Protein Total Protein Albumin Triglycerides Arterial Blood Glucose Arterial Blood Ionized Calcium 4.2 L Urine Creatinine Urine Chloride Vancomycin Trough Coronavirus (PCR) Crossmatch 07/10/20 07/11/20 07/11/20 13:24 04:08 06:52 WBC 26.0 H RBC 2.91 L Hgb 8.2 L Hct 24.8 L MCHC RDW 17.2 H Lymph % (Auto) [place] % (Auto) Lymph # (Auto) [place] # (Auto) Eos # (Auto) Seg Neutrophils % Seg Neuts % (Manual) Lymphocytes % (Manual) 1.0 L Monocytes % (Manual) 11.0 H Nucleated RBC % Seg Neutrophils # Seg Neutrophils # Man 16.9 H Lymphocytes # (Manual) 0.3 L Monocytes # (Manual) 2.9 H Eosinophils # (Manual) 1.0 H PT INR APTT D-Dimer Heparin Anti-Xa Level ABG pH POC ABG pCO2 POC ABG pO2 ABG pO2 ABG HCO3 ABG Hemoglobin 8.5 L ABG Oxyhemoglobin ABG Sodium 130.6 L ABG Potassium 4.9 H ABG Chloride ABG Glucose 105 H Carboxyhemoglobin Sodium Potassium Chloride Carbon Dioxide BUN Creatinine Glucose POC Glucose Lactic Acid Calcium Phosphorus Magnesium Ferritin Direct Bilirubin AST ALT Alkaline Phosphatase Lactate Dehydrogenase Total Creatine Kinase C-Reactive Protein Total Protein Albumin Triglycerides Arterial Blood Glucose 105 H Arterial Blood Ionized Calcium 4.1 L Urine Creatinine Urine Chloride Vancomycin Trough Coronavirus (PCR) Crossmatch See Detail 07/11/20 07/11/20 07/11/20 06:52 08:48 11:39 WBC RBC Hgb Hct MCHC RDW Lymph % (Auto) [place] % (Auto) Lymph # (Auto) [place] # (Auto) Eos # (Auto) Seg Neutrophils % Seg Neuts % (Manual) Lymphocytes % (Manual) Monocytes % (Manual) Nucleated RBC % Seg Neutrophils # Seg Neutrophils # Man Lymphocytes # (Manual) Monocytes # (Manual) Eosinophils # (Manual) PT INR APTT D-Dimer Heparin Anti-Xa Level ABG pH POC ABG pCO2 POC ABG pO2 ABG pO2 ABG HCO3 ABG Hemoglobin ABG Oxyhemoglobin ABG Sodium ABG Potassium ABG Chloride ABG Glucose Carboxyhemoglobin Sodium 133 L 134 L Potassium 5.3 H Chloride 93.5 L 94.8 L Carbon Dioxide BUN 101 H 99 H Creatinine 4.5 H 4.6 H Glucose 102 H POC Glucose 116 H Lactic Acid Calcium 7.8 L 7.6 L Phosphorus Magnesium Ferritin Direct Bilirubin AST ALT Alkaline Phosphatase Lactate Dehydrogenase Total Creatine Kinase C-Reactive Protein Total Protein Albumin Triglycerides Arterial Blood Glucose Arterial Blood Ionized Calcium Urine Creatinine Urine Chloride Vancomycin Trough Coronavirus (PCR) Crossmatch 07/11/20 07/12/20 07/12/20 17:23 00:04 03:20 WBC RBC Hgb Hct MCHC RDW Lymph % (Auto) [place] % (Auto) Lymph # (Auto) [place] # (Auto) Eos # (Auto) Seg Neutrophils % Seg Neuts % (Manual) Lymphocytes % (Manual) Monocytes % (Manual) Nucleated RBC % Seg Neutrophils # Seg Neutrophils # Man Lymphocytes # (Manual) Monocytes # (Manual) Eosinophils # (Manual) PT INR APTT D-Dimer Heparin Anti-Xa Level ABG pH POC ABG pCO2 49.1 H POC ABG pO2 130.3 H ABG pO2 ABG HCO3 ABG Hemoglobin 8.7 L ABG Oxyhemoglobin ABG Sodium 135.2 L ABG Potassium 4.7 H ABG Chloride ABG Glucose 128 H Carboxyhemoglobin Sodium Potassium Chloride Carbon Dioxide BUN Creatinine Glucose POC Glucose 142 H 113 H Lactic Acid Calcium Phosphorus Magnesium Ferritin Direct Bilirubin AST ALT Alkaline Phosphatase Lactate Dehydrogenase Total Creatine Kinase C-Reactive Protein Total Protein Albumin Triglycerides Arterial Blood Glucose 128 H Arterial Blood Ionized Calcium 4.4 L Urine Creatinine Urine Chloride Vancomycin Trough Coronavirus (PCR) Crossmatch 07/12/20 07/12/20 07/12/20 03:40 03:40 04:00 WBC 24.3 H RBC 2.83 L Hgb 8.0 L Hct 24.9 L MCHC RDW 17.7 H Lymph % (Auto) 5.6 L [place] % (Auto) 7.4 H Lymph # (Auto) [place] # (Auto) 1.8 H Eos # (Auto) 0.7 H Seg Neutrophils % 83.9 H Seg Neuts % (Manual) Lymphocytes % (Manual) Monocytes % (Manual) Nucleated RBC % Seg Neutrophils # 20.4 H Seg Neutrophils # Man Lymphocytes # (Manual) Monocytes # (Manual) Eosinophils # (Manual) PT INR APTT D-Dimer Heparin Anti-Xa Level ABG pH POC ABG pCO2 POC ABG pO2 ABG pO2 ABG HCO3 ABG Hemoglobin ABG Oxyhemoglobin ABG Sodium ABG Potassium ABG Chloride ABG Glucose Carboxyhemoglobin Sodium 134 L Potassium Chloride 95.5 L Carbon Dioxide BUN 79 H Creatinine 3.7 H Glucose 127 H POC Glucose Lactic Acid Calcium 7.8 L Phosphorus Magnesium Ferritin Direct Bilirubin AST ALT Alkaline Phosphatase Lactate Dehydrogenase Total Creatine Kinase C-Reactive Protein Total Protein Albumin Triglycerides 246 H Arterial Blood Glucose Arterial Blood Ionized Calcium Urine Creatinine Urine Chloride Vancomycin Trough Coronavirus (PCR) Crossmatch 07/12/20 07/12/20 07/12/20 05:48 11:50 17:29 WBC RBC Hgb Hct MCHC RDW Lymph % (Auto) [place] % (Auto) Lymph # (Auto) [place] # (Auto) Eos # (Auto) Seg Neutrophils % Seg Neuts % (Manual) Lymphocytes % (Manual) Monocytes % (Manual) Nucleated RBC % Seg Neutrophils # Seg Neutrophils # Man Lymphocytes # (Manual) Monocytes # (Manual) Eosinophils # (Manual) PT INR APTT D-Dimer Heparin Anti-Xa Level ABG pH POC ABG pCO2 POC ABG pO2 ABG pO2 ABG HCO3 ABG Hemoglobin ABG Oxyhemoglobin ABG Sodium ABG Potassium ABG Chloride ABG Glucose Carboxyhemoglobin Sodium Potassium Chloride Carbon Dioxide BUN Creatinine Glucose POC Glucose 136 H 113 H 110 H Lactic Acid Calcium Phosphorus Magnesium Ferritin Direct Bilirubin AST ALT Alkaline Phosphatase Lactate Dehydrogenase Total Creatine Kinase C-Reactive Protein Total Protein Albumin Triglycerides Arterial Blood Glucose Arterial Blood Ionized Calcium Urine Creatinine Urine Chloride Vancomycin Trough Coronavirus (PCR) Crossmatch 07/12/20 07/13/20 07/13/20 23:43 03:11 06:59 WBC RBC Hgb Hct MCHC RDW Lymph % (Auto) [place] % (Auto) Lymph # (Auto) [place] # (Auto) Eos # (Auto) Seg Neutrophils % Seg Neuts % (Manual) Lymphocytes % (Manual) Monocytes % (Manual) Nucleated RBC % Seg Neutrophils # Seg Neutrophils # Man Lymphocytes # (Manual) Monocytes # (Manual) Eosinophils # (Manual) PT INR APTT D-Dimer Heparin Anti-Xa Level ABG pH POC ABG pCO2 49.0 H POC ABG pO2 69.6 L ABG pO2 ABG HCO3 ABG Hemoglobin 8.5 L ABG Oxyhemoglobin 90.5 L ABG Sodium 133.6 L ABG Potassium 5.1 H ABG Chloride ABG Glucose 104 H Carboxyhemoglobin Sodium 133 L Potassium 5.7 H Chloride 96.3 L Carbon Dioxide 20 L D BUN 102 H Creatinine 4.4 H Glucose 101 H POC Glucose 120 H Lactic Acid Calcium 7.9 L Phosphorus Magnesium Ferritin Direct Bilirubin AST 61 H ALT 85 H Alkaline Phosphatase 144 H Lactate Dehydrogenase Total Creatine Kinase C-Reactive Protein Total Protein 5.4 L Albumin 2.0 L Triglycerides Arterial Blood Glucose 104 H Arterial Blood Ionized Calcium 4.3 L Urine Creatinine Urine Chloride Vancomycin Trough Coronavirus (PCR) Crossmatch 07/13/20 07/13/20 07/13/20 08:48 12:14 15:12 WBC 27.5 H RBC 3.03 L Hgb 8.7 L Hct 27.0 L MCHC RDW 18.0 H Lymph % (Auto) [place] % (Auto) Lymph # (Auto) [place] # (Auto) Eos # (Auto) Seg Neutrophils % Seg Neuts % (Manual) Lymphocytes % (Manual) Monocytes % (Manual) Nucleated RBC % Seg Neutrophils # Seg Neutrophils # Man Lymphocytes # (Manual) Monocytes # (Manual) Eosinophils # (Manual) PT INR APTT D-Dimer Heparin Anti-Xa Level ABG pH POC ABG pCO2 POC ABG pO2 ABG pO2 ABG HCO3 ABG Hemoglobin ABG Oxyhemoglobin ABG Sodium ABG Potassium ABG Chloride ABG Glucose Carboxyhemoglobin Sodium Potassium 5.5 H Chloride Carbon Dioxide BUN 88 H Creatinine 3.8 H Glucose 133 H POC Glucose 134 H Lactic Acid Calcium 7.5 L Phosphorus Magnesium Ferritin Direct Bilirubin AST ALT Alkaline Phosphatase Lactate Dehydrogenase Total Creatine Kinase C-Reactive Protein Total Protein Albumin Triglycerides Arterial Blood Glucose Arterial Blood Ionized Calcium Urine Creatinine Urine Chloride Vancomycin Trough Coronavirus (PCR) Crossmatch 07/13/20 07/13/20 07/13/20 16:46 16:47 18:46 WBC RBC Hgb 7.4 L Hct 22.1 L MCHC RDW Lymph % (Auto) [place] % (Auto) Lymph # (Auto) [place] # (Auto) Eos # (Auto) Seg Neutrophils % Seg Neuts % (Manual) Lymphocytes % (Manual) Monocytes % (Manual) Nucleated RBC % Seg Neutrophils # Seg Neutrophils # Man Lymphocytes # (Manual) Monocytes # (Manual) Eosinophils # (Manual) PT INR APTT D-Dimer Heparin Anti-Xa Level ABG pH POC ABG pCO2 POC ABG pO2 ABG pO2 ABG HCO3 ABG Hemoglobin ABG Oxyhemoglobin ABG Sodium ABG Potassium ABG Chloride ABG Glucose Carboxyhemoglobin Sodium Potassium Chloride Carbon Dioxide BUN Creatinine Glucose POC Glucose 118 H Lactic Acid Calcium Phosphorus Magnesium Ferritin Direct Bilirubin AST ALT Alkaline Phosphatase Lactate Dehydrogenase Total Creatine Kinase C-Reactive Protein Total Protein Albumin Triglycerides Arterial Blood Glucose Arterial Blood Ionized Calcium Urine Creatinine Urine Chloride Vancomycin Trough Coronavirus (PCR) Crossmatch See Detail 07/13/20 07/14/20 07/14/20 23:34 04:25 12:21 WBC RBC Hgb Hct MCHC RDW Lymph % (Auto) [place] % (Auto) Lymph # (Auto) [place] # (Auto) Eos # (Auto) Seg Neutrophils % Seg Neuts % (Manual) Lymphocytes % (Manual) Monocytes % (Manual) Nucleated RBC % Seg Neutrophils # Seg Neutrophils # Man Lymphocytes # (Manual) Monocytes # (Manual) Eosinophils # (Manual) PT INR APTT D-Dimer Heparin Anti-Xa Level ABG pH POC ABG pCO2 POC ABG pO2 ABG pO2 ABG HCO3 ABG Hemoglobin 8.9 L ABG Oxyhemoglobin ABG Sodium 133.1 L ABG Potassium 4.7 H ABG Chloride ABG Glucose 113 H Carboxyhemoglobin Sodium Potassium Chloride Carbon Dioxide BUN Creatinine Glucose POC Glucose 109 H 109 H Lactic Acid Calcium Phosphorus Magnesium Ferritin Direct Bilirubin AST ALT Alkaline Phosphatase Lactate Dehydrogenase Total Creatine Kinase C-Reactive Protein Total Protein Albumin Triglycerides Arterial Blood Glucose 113 H Arterial Blood Ionized Calcium 4.4 L Urine Creatinine Urine Chloride Vancomycin Trough Coronavirus (PCR) Crossmatch 07/14/20 07/14/2007/14/21 16:44 16:44 20:20 WBC 30.1 H RBC 2.60 L Hgb 7.4 L 5.6 L* Hct 23.0 L 18.1 L* MCHC RDW 18.0 H Lymph % (Auto) [place] % (Auto) Lymph # (Auto) [place] # (Auto) Eos # (Auto) Seg Neutrophils % Seg Neuts % (Manual) 78.0 H Lymphocytes % (Manual) 5.0 L Monocytes % (Manual) Nucleated RBC % Seg Neutrophils # Seg Neutrophils # Man 23.5 H Lymphocytes # (Manual) Monocytes # (Manual) 0.9 H Eosinophils # (Manual) PT 15.6 H INR 1.26 H APTT D-Dimer Heparin Anti-Xa Level ABG pH POC ABG pCO2 POC ABG pO2 ABG pO2 ABG HCO3 ABG Hemoglobin ABG Oxyhemoglobin ABG Sodium ABG Potassium ABG Chloride ABG Glucose Carboxyhemoglobin Sodium Potassium Chloride Carbon Dioxide BUN Creatinine Glucose POC Glucose Lactic Acid Calcium Phosphorus Magnesium Ferritin Direct Bilirubin AST ALT Alkaline Phosphatase Lactate Dehydrogenase Total Creatine Kinase C-Reactive Protein Total Protein Albumin Triglycerides Arterial Blood Glucose Arterial Blood Ionized Calcium Urine Creatinine Urine Chloride Vancomycin Trough Coronavirus (PCR) Crossmatch 07/14/20 07/14/20 07/15/20 21:19 23:45 04:13 WBC RBC Hgb Hct MCHC RDW Lymph % (Auto) [place] % (Auto) Lymph # (Auto) [place] # (Auto) Eos # (Auto) Seg Neutrophils % Seg Neuts % (Manual) Lymphocytes % (Manual) Monocytes % (Manual) Nucleated RBC % Seg Neutrophils # Seg Neutrophils # Man Lymphocytes # (Manual) Monocytes # (Manual) Eosinophils # (Manual) PT INR APTT D-Dimer Heparin Anti-Xa Level ABG pH POC ABG pCO2 POC ABG pO2 ABG pO2 ABG HCO3 ABG Hemoglobin 5.8 L 6.0 L ABG Oxyhemoglobin 93.8 L ABG Sodium 132.2 L 130.3 L ABG Potassium 5.5 H 5.8 H ABG Chloride ABG Glucose 118 H 122 H Carboxyhemoglobin Sodium Potassium Chloride Carbon Dioxide BUN Creatinine Glucose POC Glucose 126 H Lactic Acid Calcium Phosphorus Magnesium Ferritin Direct Bilirubin AST ALT Alkaline Phosphatase Lactate Dehydrogenase Total Creatine Kinase C-Reactive Protein Total Protein Albumin Triglycerides Arterial Blood Glucose 118 H 122 H Arterial Blood Ionized Calcium 4.3 L 4.2 L Urine Creatinine Urine Chloride Vancomycin Trough Coronavirus (PCR) Crossmatch 07/15/20 07/15/20 07/15/20 08:21 08:21 08:38 WBC 45.5 H* RBC 2.42 L Hgb 7.1 L Hct 21.5 L MCHC RDW 16.5 H Lymph % (Auto) [place] % (Auto) Lymph # (Auto) [place] # (Auto) Eos # (Auto) Seg Neutrophils % Seg Neuts % (Manual) 89.0 H Lymphocytes % (Manual) 7.0 L Monocytes % (Manual) Nucleated RBC % Seg Neutrophils # Seg Neutrophils # Man 40.5 H Lymphocytes # (Manual) Monocytes # (Manual) 1.8 H Eosinophils # (Manual) PT 17.6 H INR 1.46 H APTT D-Dimer Heparin Anti-Xa Level ABG pH POC ABG pCO2 POC ABG pO2 ABG pO2 ABG HCO3 ABG Hemoglobin ABG Oxyhemoglobin ABG Sodium ABG Potassium ABG Chloride ABG Glucose Carboxyhemoglobin Sodium 131 L Potassium 6.0 H Chloride 94.6 L Carbon Dioxide 20 L BUN 116 H Creatinine 4.6 H Glucose 123 H POC Glucose Lactic Acid Calcium 7.6 L Phosphorus Magnesium Ferritin Direct Bilirubin AST ALT Alkaline Phosphatase Lactate Dehydrogenase Total Creatine Kinase C-Reactive Protein Total Protein Albumin Triglycerides Arterial Blood Glucose Arterial Blood Ionized Calcium Urine Creatinine Urine Chloride Vancomycin Trough Coronavirus (PCR) Crossmatch 07/15/20 07/15/20 07/15/20 11:29 17:23 18:52 WBC RBC Hgb Hct MCHC RDW Lymph % (Auto) [place] % (Auto) Lymph # (Auto) [place] # (Auto) Eos # (Auto) Seg Neutrophils % Seg Neuts % (Manual) Lymphocytes % (Manual) Monocytes % (Manual) Nucleated RBC % Seg Neutrophils # Seg Neutrophils # Man Lymphocytes # (Manual) Monocytes # (Manual) Eosinophils # (Manual) PT INR APTT D-Dimer Heparin Anti-Xa Level ABG pH POC ABG pCO2 POC ABG pO2 ABG pO2 ABG HCO3 ABG Hemoglobin ABG Oxyhemoglobin ABG Sodium ABG Potassium ABG Chloride ABG Glucose Carboxyhemoglobin Sodium Potassium Chloride 97.9 L Carbon Dioxide BUN 78 H Creatinine 3.1 H Glucose 114 H POC Glucose 181 H 120 H Lactic Acid Calcium 7.3 L Phosphorus Magnesium Ferritin Direct Bilirubin AST ALT Alkaline Phosphatase Lactate Dehydrogenase Total Creatine Kinase C-Reactive Protein Total Protein Albumin Triglycerides Arterial Blood Glucose Arterial Blood Ionized Calcium Urine Creatinine Urine Chloride Vancomycin Trough Coronavirus (PCR) Crossmatch 07/15/20 07/16/20 07/16/20 18:52 01:10 03:38 WBC RBC Hgb 9.9 L 8.5 L Hct 29.8 L D 24.7 L MCHC RDW Lymph % (Auto) [place] % (Auto) Lymph # (Auto) [place] # (Auto) Eos # (Auto) Seg Neutrophils % Seg Neuts % (Manual) Lymphocytes % (Manual) Monocytes % (Manual) Nucleated RBC % Seg Neutrophils # Seg Neutrophils # Man Lymphocytes # (Manual) Monocytes # (Manual) Eosinophils # (Manual) PT INR APTT D-Dimer Heparin Anti-Xa Level ABG pH 7.314 L POC ABG pCO2 48.5 H POC ABG pO2 58.9 L ABG pO2 ABG HCO3 ABG Hemoglobin 8.7 L ABG Oxyhemoglobin 86.7 L ABG Sodium 132.7 L ABG Potassium 5.2 H ABG Chloride ABG Glucose 99 H Carboxyhemoglobin Sodium Potassium Chloride Carbon Dioxide BUN Creatinine Glucose POC Glucose Lactic Acid Calcium Phosphorus Magnesium Ferritin Direct Bilirubin AST ALT Alkaline Phosphatase Lactate Dehydrogenase Total Creatine Kinase C-Reactive Protein Total Protein Albumin Triglycerides Arterial Blood Glucose 99 H Arterial Blood Ionized Calcium 3.9 L Urine Creatinine Urine Chloride Vancomycin Trough Coronavirus (PCR) Crossmatch 07/16/20 07/16/20 07/16/20 04:28 04:28 07:29 WBC 48.9 H* RBC 2.86 L Hgb 8.6 L 7.9 L Hct 25.4 L 24.4 L MCHC RDW 15.6 H Lymph % (Auto) [place] % (Auto) Lymph # (Auto) [place] # (Auto) Eos # (Auto) Seg Neutrophils % Seg Neuts % (Manual) Lymphocytes % (Manual) Monocytes % (Manual) Nucleated RBC % Seg Neutrophils # Seg Neutrophils # Man Lymphocytes # (Manual) Monocytes # (Manual) Eosinophils # (Manual) PT INR APTT D-Dimer Heparin Anti-Xa Level ABG pH POC ABG pCO2 POC ABG pO2 ABG pO2 ABG HCO3 ABG Hemoglobin ABG Oxyhemoglobin ABG Sodium ABG Potassium ABG Chloride ABG Glucose Carboxyhemoglobin Sodium 136 L Potassium 5.4 H Chloride 95.0 L Carbon Dioxide BUN 85 H Creatinine 3.4 H Glucose 66 L POC Glucose Lactic Acid Calcium 6.8 L Phosphorus Magnesium Ferritin Direct Bilirubin AST ALT Alkaline Phosphatase Lactate Dehydrogenase Total Creatine Kinase C-Reactive Protein Total Protein Albumin Triglycerides Arterial Blood Glucose Arterial Blood Ionized Calcium Urine Creatinine Urine Chloride Vancomycin Trough Coronavirus (PCR) Crossmatch 07/16/20 11:52 WBC RBC Hgb Hct MCHC RDW Lymph % (Auto) [place] % (Auto) Lymph # (Auto) [place] # (Auto) Eos # (Auto) Seg Neutrophils % Seg Neuts % (Manual) Lymphocytes % (Manual) Monocytes % (Manual) Nucleated RBC % Seg Neutrophils # Seg Neutrophils # Man Lymphocytes # (Manual) Monocytes # (Manual) Eosinophils # (Manual) PT INR APTT D-Dimer Heparin Anti-Xa Level ABG pH POC ABG pCO2 POC ABG pO2 ABG pO2 ABG HCO3 ABG Hemoglobin ABG Oxyhemoglobin ABG Sodium ABG Potassium ABG Chloride ABG Glucose Carboxyhemoglobin Sodium Potassium Chloride Carbon Dioxide BUN Creatinine Glucose POC Glucose 124 H Lactic Acid Calcium Phosphorus Magnesium Ferritin Direct Bilirubin AST ALT Alkaline Phosphatase Lactate Dehydrogenase Total Creatine Kinase C-Reactive Protein Total Protein Albumin Triglycerides Arterial Blood Glucose Arterial Blood Ionized Calcium Urine Creatinine Urine Chloride Vancomycin Trough Coronavirus (PCR) Crossmatch Allied health notes reviewed: nursing
--- NOTE | 2020-07-16 16:48 | Progress Note ---
Assessment and Plan 1. GI bleed - EGD/Colon yesterday showing old blood throughout colon, with diverticulosis, and no active bleeding. EGD showed no source of bleeding. Discussed with pt's yesterday. DDx - diverticular bleed, vs ischemia or AVMs. Clinically, old blood from rectum. Hgb drifted down to 7.9 today. - monitor H/H and transfuse as needed - if actively bleeds, get CTA as soon as stable. - empiric PPI prophylaxis Subjective Date of service: 07/16/20 Principal diagnosis: ARF; Septic Shock; COVID-19 PNA; Atrial fibrillation; Obesity Interval history: Pt still having blood from rectum, but no bright red, and significantly diminished by RN report. Otherwise, no acute changes. Objective - Exam Narrative Exam: Pt seen through glass doors, due to COVID. Intubated. Multiple lines in place. - Constitutional Vitals: Vital Signs - 12hr 07/16/20 07/16/20 07/16/20 04:45 05:00 05:15 Temperature Pulse Rate 120 H 120 H 119 H Pulse Rate [ From Monitor] Respiratory 28 H 26 H 30 H Rate Blood Pressure 123/72 122/71 111/71 O2 Sat by Pulse 95 96 96 Oximetry O2 Sat by Pulse Oximetry [ Anterior Bilateral Throughout] 07/16/20 07/16/20 07/16/20 05:30 05:45 06:00 Temperature Pulse Rate 123 H 128 H 130 H Pulse Rate [ From Monitor] Respiratory 29 H 30 H 28 H Rate Blood Pressure 122/65 104/74 122/66 O2 Sat by Pulse 95 95 95 Oximetry O2 Sat by Pulse Oximetry [ Anterior Bilateral Throughout] 07/16/20 07/16/20 07/16/20 06:15 06:30 06:45 Temperature Pulse Rate 115 H 115 H 116 H Pulse Rate [ From Monitor] Respiratory 28 H 23 26 H Rate Blood Pressure 121/67 123/73 122/62 O2 Sat by Pulse 97 95 95 Oximetry O2 Sat by Pulse Oximetry [ Anterior Bilateral Throughout] 07/16/20 07/16/20 07/16/20 07:00 07:16 07:30 Temperature Pulse Rate 125 H 112 H 128 H Pulse Rate [ From Monitor] Respiratory 27 H 25 H 26 H Rate Blood Pressure 120/67 120/67 122/68 O2 Sat by Pulse 94 94 94 Oximetry O2 Sat by Pulse Oximetry [ Anterior Bilateral Throughout] 07/16/20 07/16/20 07/16/20 07:45 08:00 08:11 Temperature Pulse Rate 127 H 125 H 123 H Pulse Rate [ 120 H From Monitor] Respiratory 27 H 30 H Rate Blood Pressure 121/61 107/54 107/54 O2 Sat by Pulse 94 94 96 Oximetry O2 Sat by Pulse Oximetry [ Anterior Bilateral Throughout] 07/16/20 07/16/20 07/16/20 08:15 08:30 08:45 Temperature Pulse Rate 122 H 118 H 116 H Pulse Rate [ From Monitor] Respiratory 30 H 28 H 27 H Rate Blood Pressure 107/54 105/68 112/67 O2 Sat by Pulse 94 94 94 Oximetry O2 Sat by Pulse Oximetry [ Anterior Bilateral Throughout] 07/16/20 07/16/20 07/16/20 09:00 09:15 09:30 Temperature Pulse Rate 123 H 117 H 110 H Pulse Rate [ From Monitor] Respiratory 22 29 H 26 H Rate Blood Pressure 112/61 112/61 112/60 O2 Sat by Pulse 95 94 94 Oximetry O2 Sat by Pulse Oximetry [ Anterior Bilateral Throughout] 07/16/20 07/16/20 07/16/20 09:45 10:00 10:15 Temperature 98.7 F Pulse Rate 123 H 113 H 121 H Pulse Rate [ From Monitor] Respiratory 24 28 H 23 Rate Blood Pressure 104/66 111/58 123/72 O2 Sat by Pulse 95 94 96 Oximetry O2 Sat by Pulse 89 Oximetry [ Anterior Bilateral Throughout] 07/16/20 07/16/20 07/16/20 10:20 10:30 10:45 Temperature Pulse Rate 117 H 115 H 121 H Pulse Rate [ From Monitor] Respiratory 26 H 26 H Rate Blood Pressure 111/58 111/73 119/75 O2 Sat by Pulse 90 89 Oximetry O2 Sat by Pulse Oximetry [ Anterior Bilateral Throughout] 07/16/20 07/16/20 07/16/20 11:00 11:15 11:30 Temperature Pulse Rate 119 H 121 H 132 H Pulse Rate [ From Monitor] Respiratory 26 H 23 24 Rate Blood Pressure 104/65 104/65 90/57 O2 Sat by Pulse 87 86 89 Oximetry O2 Sat by Pulse Oximetry [ Anterior Bilateral Throughout] 07/16/20 07/16/20 07/16/20 11:35 11:45 12:00 Temperature Pulse Rate 129 H 133 H 124 H Pulse Rate [ 124 H From Monitor] Respiratory 22 34 H Rate Blood Pressure 84/54 89/59 98/58 O2 Sat by Pulse 91 92 Oximetry O2 Sat by Pulse Oximetry [ Anterior Bilateral Throughout] 07/16/20 07/16/20 07/16/20 12:01 12:15 12:30 Temperature Pulse Rate 130 H 127 H 128 H Pulse Rate [ From Monitor] Respiratory 24 22 21 Rate Blood Pressure 89/59 98/67 116/68 O2 Sat by Pulse 93 95 96 Oximetry O2 Sat by Pulse Oximetry [ Anterior Bilateral Throughout] 07/16/20 07/16/20 07/16/20 12:45 13:00 13:15 Temperature Pulse Rate 130 H 133 H 131 H Pulse Rate [ From Monitor] Respiratory 22 24 21 Rate Blood Pressure 112/71 109/66 111/73 O2 Sat by Pulse 96 94 94 Oximetry O2 Sat by Pulse Oximetry [ Anterior Bilateral Throughout] 07/16/20 07/16/20 07/16/20 13:30 13:45 14:00 Temperature 98.6 F Pulse Rate 128 H 127 H 125 H Pulse Rate [ From Monitor] Respiratory 18 18 18 Rate Blood Pressure 114/73 119/75 113/71 O2 Sat by Pulse 96 96 96 Oximetry O2 Sat by Pulse Oximetry [ Anterior Bilateral Throughout] 07/16/20 15:08 Temperature Pulse Rate 124 H Pulse Rate [ From Monitor] Respiratory Rate Blood Pressure 125/69 O2 Sat by Pulse 96 Oximetry O2 Sat by Pulse Oximetry [ Anterior Bilateral Throughout] - Labs CBC & Chem 7: 07/16/20 07:29 07/16/20 04:28 Labs: Abnormal lab results 07/13/20 07/15/20 07/15/20 Range/Units 16:46 17:23 18:52 WBC (4.5-11.0) K/mm3 RBC (3.65-5.03) M/mm3 Hgb (11.8-15.2) gm/dl Hct (35.5-45.6) % RDW (13.2-15.2) % ABG pH (7.320-7.450) POC ABG pCO2 (32.0-48.0) mmHg POC ABG pO2 (83-108) mmHg ABG Hemoglobin (12.0-17.5) ABG Oxyhemoglobin (94-98) ABG Sodium (136.0-145.0) mmol/L ABG Potassium (3.40-4.50) mmol/L ABG Glucose (65-95) mg/dL Sodium (137-145) mmol/L Potassium (3.6-5.0) mmol/L Chloride 97.9 L (98-107) mmol/L BUN 78 H (9-20) mg/dL Creatinine 3.1 H (0.8-1.3) mg/dL Glucose 114 H (75-100) mg/dL POC Glucose 120 H (70-105) mg/dL Calcium 7.3 L (8.4-10.2) mg/dL Arterial Blood Glucose (65-95) mg/dL Arterial Blood Ionized Calcium (4.6-5.3) mg/dL Crossmatch See Detail 07/15/20 07/16/20 07/16/20 Range/Units 18:52 01:10 03:38 WBC (4.5-11.0) K/mm3 RBC (3.65-5.03) M/mm3 Hgb 9.9 L 8.5 L (11.8-15.2) gm/dl Hct 29.8 L D 24.7 L (35.5-45.6) % RDW (13.2-15.2) % ABG pH 7.314 L (7.320-7.450) POC ABG pCO2 48.5 H (32.0-48.0) mmHg POC ABG pO2 58.9 L (83-108) mmHg ABG Hemoglobin 8.7 L (12.0-17.5) ABG Oxyhemoglobin 86.7 L (94-98) ABG Sodium 132.7 L (136.0-145.0) mmol/L ABG Potassium 5.2 H (3.40-4.50) mmol/L ABG Glucose 99 H (65-95) mg/dL Sodium (137-145) mmol/L Potassium (3.6-5.0) mmol/L Chloride (98-107) mmol/L BUN (9-20) mg/dL Creatinine (0.8-1.3) mg/dL Glucose (75-100) mg/dL POC Glucose (70-105) mg/dL Calcium (8.4-10.2) mg/dL Arterial Blood Glucose 99 H (65-95) mg/dL Arterial Blood Ionized Calcium 3.9 L (4.6-5.3) mg/dL Crossmatch 07/16/20 07/16/20 07/16/20 Range/Units 04:28 04:28 07:29 WBC 48.9 H* (4.5-11.0) K/mm3 RBC 2.86 L (3.65-5.03) M/mm3 Hgb 8.6 L 7.9 L (11.8-15.2) gm/dl Hct 25.4 L 24.4 L (35.5-45.6) % RDW 15.6 H (13.2-15.2) % ABG pH (7.320-7.450) POC ABG pCO2 (32.0-48.0) mmHg POC ABG pO2 (83-108) mmHg ABG Hemoglobin (12.0-17.5) ABG Oxyhemoglobin (94-98) ABG Sodium (136.0-145.0) mmol/L ABG Potassium (3.40-4.50) mmol/L ABG Glucose (65-95) mg/dL Sodium 136 L (137-145) mmol/L Potassium 5.4 H (3.6-5.0) mmol/L Chloride 95.0 L (98-107) mmol/L BUN 85 H (9-20) mg/dL Creatinine 3.4 H (0.8-1.3) mg/dL Glucose 66 L (75-100) mg/dL POC Glucose (70-105) mg/dL Calcium 6.8 L (8.4-10.2) mg/dL Arterial Blood Glucose (65-95) mg/dL Arterial Blood Ionized Calcium (4.6-5.3) mg/dL Crossmatch 07/16/20 Range/Units 11:52 WBC (4.5-11.0) K/mm3 RBC (3.65-5.03) M/mm3 Hgb (11.8-15.2) gm/dl Hct (35.5-45.6) % RDW (13.2-15.2) % ABG pH (7.320-7.450) POC ABG pCO2 (32.0-48.0) mmHg POC ABG pO2 (83-108) mmHg ABG Hemoglobin (12.0-17.5) ABG Oxyhemoglobin (94-98) ABG Sodium (136.0-145.0) mmol/L ABG Potassium (3.40-4.50) mmol/L ABG Glucose (65-95) mg/dL Sodium (137-145) mmol/L Potassium (3.6-5.0) mmol/L Chloride (98-107) mmol/L BUN (9-20) mg/dL Creatinine (0.8-1.3) mg/dL Glucose (75-100) mg/dL POC Glucose 124 H (70-105) mg/dL Calcium (8.4-10.2) mg/dL Arterial Blood Glucose (65-95) mg/dL Arterial Blood Ionized Calcium (4.6-5.3) mg/dL Crossmatch Medications & Allergies - Medications Allergies/Adverse Reactions: Allergies No Known Allergies Allergy (Unverified 06/17/20 14:24) Home Medications: Home Medications Medication Instructions Recorded Confirmed Last Taken Type Losartan/Hydrochlorothiazide 1 each PO QDAY 06/19/20 06/19/20 Unknown History [Losartan-Hctz 100-25 mg Tab] amLODIPine [Norvasc] 5 mg PO DAILY 06/19/20 06/19/20 Unknown History Active Medications: Generic Name Dose Route Start Last Admin Trade Name Freq PRN Reason Stop Dose Admin Acetaminophen 650 mg 06/17/20 14:17 07/03/20 09:16 Acetaminophen 325 Mg Tab PO 650 mg Q4H PRN Administration Pain MILD(1-3)/Fever >100.5/ROBERTS Lipase/Protease/Amylase 1 each 06/19/20 12:15 Lipase 10,500/Protease 25,000/Amylase 43,750 (Units) Dr Kulkarni FEEDTUBE PRN PRN For Clogged Feeding Tube Ascorbic Acid 250 mg 06/17/20 22:00 07/16/20 10:04 Ascorbic Acid 250 Mg Tab PO Not Given BID [facility] Cholecalciferol 1,000 unit 06/18/20 10:00 07/16/20 10:05 Cholecalciferol (Vit D3) 1000 Unit (25 Mcg) Tab PO Not Given DAILY [facility] Docusate Sodium 100 mg 06/23/20 15:00 07/16/20 10:04 Docusate Sodium 100 Mg/10 Ml Oral Liqd FEEDTUBE Not Given BID [facility] Fentanyl 50 mcg 06/18/20 01:02 07/09/20 00:20 Fentanyl 100 Mcg/2 Ml Inj IV 50 mcg Q10MIN PRN Administration ANALGESIA Heparin Sodium (Porcine) 5,000 unit 06/22/20 12:53 06/30/20 13:36 Heparin 10,000 Unit/1 Ml Vial IV 5,000 unit PAM PRN Administration hemodialysis Hydrophilic Ointment 1 applic 06/17/20 22:52 07/12/20 20:22 Lip Therapy Vaseline TP 1 applic Q2HR PRN Administration Dry Lips Propofol 1,000 mg in 100 mls @ 3.402 mls/hr 06/18/20 01:00 07/16/20 08:51 Diprivan 10 Mg/Ml IV 10 mcg/kg/min TITR [facility] 6.804 mls/hr Administration Protocol 5 MCG/KG/MIN Fentanyl Citrate 2,000 mcg in 100 mls @ 8 mls/hr 06/18/20 02:00 07/16/20 14:2 2 Fentanyl Drip Premix IV 2 mcg/kg/hr TITR [facility] 16 mls/hr Administration Protocol 1 MCG/KG/HR Norepinephrine 4 mg in 250 mls @ 7.5 mls/hr 07/08/20 02:06 07/16/20 14:51 Levophed Drip 4 Mg/Ns 250 Ml IV 10 mcg/min TITR [facility] 37.5 mls/hr Titration Protocol 2 MCG/MIN Vasopressin 20 unit/ Sodium 101 mls @ 9.09 mls/hr 07/11/20 11:00 07/16/20 14:50 Chloride IV 0.03 units/min TITR [facility] 9.09 mls/hr Administration Protocol 0.03 UNITS/MIN Amiodarone HCl 900 mg/ 500 mls @ 33.333 mls/hr 07/14/20 12:30 07/16/20 14:50 Dextrose IV 0.5 mg/min DIRECT [facility] 16.667 mls/hr Administration Protocol 1 MG/MIN Pantoprazole Sodium 80 mg/ 100 mls @ 10 mls/hr 07/15/20 08:00 07/16/20 14:22 Sodium Chloride IV 8 mg/hr DIRECT [facility] 10 mls/hr Administration 8 MG/HR Cefepime HCl 2 gm in 100 mls @ 200 mls/hr 07/15/20 08:00 07/16/20 08:52 Cefepime/Ns 2 Gm/100 Ml IV 200 mls/hr Q24H [facility] Administration Protocol Sodium Chloride 100 mls @ 999 mls/hr 07/15/20 14:18 Nacl 0.9% IV PAM PRN Hypotension Metronidazole 500 mg in 100 mls @ 100 mls/hr 07/15/20 20:00 07/16/20 14:23 Flagyl 500 Mg/100 Ml IV 100 mls/hr Q8H [facility] Administration Protocol Insulin Human Regular 0 units 06/18/20 12:00 07/16/20 12:22 Insulin Regular, Human 100 Units/1 Ml SUB-Q Not Given Q6HR [facility] Protocol Multi-Ingred Cream/Lotion/Oil/Oint 1 applic 06/17/20 22:52 07/12/20 20:22 Mineral Oil/Petrolatum, White Ophth Oint 3.5 Gm OU 1 applic Q4HR PRN Administration Dry Eye(s) Ondansetron HCl 4 mg 06/17/20 14:17 Ondansetron 4 Mg/2 Ml Inj IV Q8H PRN Nausea And Vomiting Polyethylene Glycol 17 gm 06/23/20 15:00 07/16/20 10:04 Polyethylene Glycol 3350 17 Gm Powder PO Not Given QDAY [facility] Quetiapine Fumarate 200 mg 06/28/20 13:00 07/16/20 10:04 Quetiapine 200 Mg Tab PO Not Given BID [facility] Simple Syrup 15 ml 06/19/20 12:15 Simple Syrup 15 Ml FEEDTUBE PRN PRN Hypoglycemia Simple Syrup 30 ml 06/19/20 12:15 Simple Syrup 15 Ml FEEDTUBE PRN PRN Hypoglycemia Sodium Bicarbonate 325 mg 06/19/20 12:15 07/11/20 20:00 Sodium Bicarbonate 325 Mg Tab FEEDTUBE 325 mg PRN PRN Administration For Clogged Feeding Tube Sodium Bicarbonate 650 mg 07/04/20 10:00 07/16/20 14:23 Sodium Bicarbonate 650 Mg Tab PO 650 mg TID [facility] Administration Sodium Chloride 10 ml 06/17/20 22:00 07/16/20 10:05 Sodium Chloride 0.9% 10 Ml Flush Syringe IV 10 ml BID [facility] Administration Sodium Chloride 10 ml 06/17/20 14:17 Sodium Chloride 0.9% 10 Ml Flush Syringe IV PRN PRN LINE FLUSH Sodium Polystyrene Sulfonate 15 gm 07/03/20 11:19 07/05/20 10:36 Sodium Polystyrene 15 Gm/60 Ml Oral Liqd PO 15 gm Q6HR PRN Administration Hyperkalemia Zinc Sulfate 220 mg 06/17/20 22:00 07/16/20 10:05 Zinc Sulfate 220 Mg Cap PO Not Given BID [facility] HEART Score - HEART Score Troponin: Troponin T < 0.010 ng/mL (0.00-0.029) 06/17/20 12:33
[2020-07-16 18:32] LABS: Hematocrit 22.5 % (35.5-45.6); Hemoglobin 7.4 gm/dl (11.8-15.2)
[2020-07-16] MEDS: PANTOPRAZOLE 40 MG INJ IV SCH (21:34)
[2020-07-17] MEDS: INSULIN REGULAR, HUMAN 100 UNITS/1 ML SUB-Q SCH ×4 (00:39→18:07)
[2020-07-17] MEDS: VASOPRESSIN 20 UNIT in SODIUM CHLORIDE 0.9% 100 ML IV SCH ×3 (00:57→22:38)
--- NOTE | 2020-07-17 01:33 | Hem/Onc Consultation ---
History of Present Illness - History of Present Illness heme/onc consult for high WBC televisit not possible because [facility]grupo, Covid pt 59yo obese man with ANAMIKA admitted one month ago for fatigue, hypoxia found to have covid19 infection throughout his hosp stay he has had WBC>30, now 40-50 needed to start HD DATA REVIEWED BELOW IMPRESSION recent critical illness attrib to COvid19 infection high WBC likely 'reactive" but CML is another possibility severe anemia requiring transfusions, likely due to acute illness REC: labs to include BCR-ABL mutation testing RBC transfusions as needed for severe anemia Laboratory Last Values WBC 48.9 K/mm3 (4.5-11.0) H* 07/16/20 04:28 Hgb 7.4 gm/dl (11.8-15.2) L 07/16/20 18:08 Hct 22.5 % (35.5-45.6) L 07/16/20 18:08 Plt Count 279 K/mm3 (140-440) 07/16/20 04:28 Seg Neuts % (Manual) 89.0 % (40.0-70.0) H 07/15/20 08:21 PT 17.6 Sec. (12.2-14.9) H 07/15/20 08:21 INR 1.46 (0.87-1.13) H 07/15/20 08:21 APTT 28.5 Sec. (24.2-36.6) 06/26/20 05:47 Fibrinogen 419 mg/dl (211-480) 07/15/20 08:21 D-Dimer 6608.00 ng/mlDDU (0-234) H 07/03/20 14:50 SARS-CoV-2 IgG Ab Nonreactive (NonReactive) 07/04/20 05:20 Blood Type A POSITIVE 07/13/20 16:46 Antibody Screen Negative 07/13/20 16:46 Crossmatch See Detail 07/13/20 16:46 Past History Past Medical History: hypertension, other (Morbid obesity) Past Surgical History: No surgical history, Other (Reviewed) Social history: Family history: diabetes, hypertension Medications and Allergies Allergies Allergy/AdvReac Type Severity Reaction Status Date / Time No Known Allergies Allergy Unverified 06/17/20 14:24 Home Medications Medication Instructions Recorded Confirmed Last Taken Type Losartan/Hydrochlorothiazide 1 each PO QDAY 06/19/20 06/19/20 Unknown History [Losartan-Hctz 100-25 mg Tab] amLODIPine [Norvasc] 5 mg PO DAILY 06/19/20 06/19/20 Unknown History Active Meds: Active Medications Acetaminophen (Acetaminophen 325 Mg Tab) 650 mg PO Q4H PRN PRN Reason: Pain MILD(1-3)/Fever >100.5/ROBERTS Last Admin: 07/03/20 09:16 Dose: 650 mg Documented by: Lipase/Protease/Amylase (Lipase 10,500/Protease 25,000/Amylase 43,750 (Units) Dr Cap) 1 each FEEDTUBE PRN PRN PRN Reason: For Clogged Feeding Tube Ascorbic Acid (Ascorbic Acid 250 Mg Tab) 250 mg PO BID [facility] Last Admin: 07/16/20 21:35 Dose: 250 mg Documented by: Cholecalciferol (Cholecalciferol (Vit D3) 1000 Unit (25 Mcg) Tab) 1,000 unit PO DAILY [facility] Last Admin: 07/16/20 10:05 Dose: Not Given Documented by: Docusate Sodium (Docusate Sodium 100 Mg/10 Ml Oral Liqd) 100 mg FEEDTUBE BID [facility] Last Admin: 07/16/20 21:34 Dose: 100 mg Documented by: Fentanyl (Fentanyl 100 Mcg/2 Ml Inj) 50 mcg IV Q10MIN PRN PRN Reason: ANALGESIA Last Admin: 07/09/20 00:20 Dose: 50 mcg Documented by: Heparin Sodium (Porcine) (Heparin 10,000 Unit/1 Ml Vial) 5,000 unit IV PAM PRN PRN Reason: hemodialysis Last Admin: 06/30/20 13:36 Dose: 5,000 unit Documented by: Hydrophilic Ointment (Lip Therapy Vaseline) 1 applic TP Q2HR PRN PRN Reason: Dry Lips Last Admin: 07/12/20 20:22 Dose: 1 applic Documented by: Propofol (Diprivan 10 Mg/Ml) 1,000 mg in 100 mls @ 3.402 mls/hr IV TITR [facility]; Protocol Last Admin: 07/16/20 18:10 Dose: 10 mcg/kg/min, 6.804 mls/hr Documented by: Fentanyl Citrate (Fentanyl Drip Premix) 2,000 mcg in 100 mls @ 8 mls/hr IV TITR [facility]; Protocol Last Admin: 07/16/20 21:34 Dose: 2 mcg/kg/hr, 16 mls/hr Documented by: Norepinephrine (Levophed Drip 4 Mg/Ns 250 Ml) 4 mg in 250 mls @ 7.5 mls/hr IV TITR [facility]; Protocol Last Admin: 07/16/20 18:10 Dose: 8 mcg/min, 30 mls/hr Documented by: Vasopressin 20 unit/ Sodium (Chloride) 101 mls @ 9.09 mls/hr IV TITR [facility]; Pr otocol Last Admin: 07/17/20 00:57 Dose: 0.03 units/min, 9.09 mls/hr Documented by: Amiodarone HCl 900 mg/ (Dextrose) 500 mls @ 33.333 mls/hr IV DIRECT [facility]; Protocol Last Admin: 07/16/20 14:50 Dose: 0.5 mg/min, 16.667 mls/hr Documented by: Cefepime HCl (Cefepime/Ns 2 Gm/100 Ml) 2 gm in 100 mls @ 200 mls/hr IV Q24H [facility]; Protocol Last Admin: 07/16/20 08:52 Dose: 200 mls/hr Documented by: Sodium Chloride (Nacl 0.9%) 100 mls @ 999 mls/hr IV PAM PRN PRN Reason: Hypotension Metronidazole (Flagyl 500 Mg/100 Ml) 500 mg in 100 mls @ 100 mls/hr IV Q8H [facility]; Protocol Last Admin: 07/16/20 20:00 Dose: 100 mls/hr Documented by: Insulin Human Regular (Insulin Regular, Human 100 Units/1 Ml) 0 units SUB-Q Q6HR [facility]; Protocol Last Admin: 07/17/20 00:39 Dose: Not Given Documented by: Multi-Ingred Cream/Lotion/Oil/Oint (Mineral Oil/Petrolatum, White Ophth Oint 3.5 Gm) 1 applic OU Q4HR PRN PRN Reason: Dry Eye(s) Last Admin: 07/12/20 20:22 Dose: 1 applic Documented by: Ondansetron HCl (Ondansetron 4 Mg/2 Ml Inj) 4 mg IV Q8H PRN PRN Reason: Nausea And Vomiting Pantoprazole Sodium (Pantoprazole 40 Mg Inj) 40 mg IV BID [facility] Last Admin: 07/16/20 21:34 Dose: 40 mg Documented by: Polyethylene Glycol (Polyethylene Glycol 3350 17 Gm Powder) 17 gm PO QDAY [facility] Last Admin: 07/16/20 10:04 Dose: Not Given Documented by: Quetiapine Fumarate (Quetiapine 200 Mg Tab) 200 mg PO BID [facility] Last Admin: 07/16/20 21:35 Dose: 200 mg Documented by: Simple Syrup (Simple Syrup 15 Ml) 15 ml FEEDTUBE PRN PRN PRN Reason: Hypoglycemia Simple Syrup (Simple Syrup 15 Ml) 30 ml FEEDTUBE PRN PRN PRN Reason: Hypoglycemia Sodium Bicarbonate (Sodium Bicarbonate 325 Mg Tab) 325 mg FEEDTUBE PRN PRN PRN Reason: For Clogged Feeding Tube Last Admin: 07/11/20 20:00 Dose: 325 mg Documented by: Sodium Bicarbonate (Sodium Bicarbonate 650 Mg Tab) 650 mg PO TID [facility] Last Admin: 07/16/20 21:35 Dose: 650 mg Documented by: Sodium Chloride (Sodium Chloride 0.9% 10 Ml Flush Syringe) 10 ml IV BID [facility] Last Admin: 07/16/20 21:35 Dose: 10 ml Documented by: Sodium Chloride (Sodium Chloride 0.9% 10 Ml Flush Syringe) 10 ml IV PRN PRN PRN Reason: LINE FLUSH Sodium Polystyrene Sulfonate (Sodium Polystyrene 15 Gm/60 Ml Oral Liqd) 15 gm PO Q6HR PRN PRN Reason: Hyperkalemia Last Admin: 07/05/20 10:36 Dose: 15 gm Documented by: Zinc Sulfate (Zinc Sulfate 220 Mg Cap) 220 mg PO BID [facility] Last Admin: 07/16/20 21:35 Dose: 220 mg Documented by: Exam - Constitutional Vitals: Last Vital Signs Temp 98.4 F 07/17/20 00:00 Pulse 119 H 07/16/20 23:30 Resp 17 07/16/20 23:30 BP 115/61 07/16/20 23:30 Pulse Ox 96 07/16/20 23:30 Results - Labs lab Results: Laboratory Results - last 24 hr 07/16/20 07/16/20 07/16/20 01:10 03:38 04:28 WBC 48.9 H* RBC 2.86 L Hgb 8.5 L 8.6 L Hct 24.7 L 25.4 L MCV 89 MCH 30 MCHC 34 RDW 15.6 H Plt Count 279 ABG pH 7.314 L POC ABG pCO2 48.5 H POC ABG pO2 58.9 L POC ABG HCO3 24.1 POC ABG Base Excess -2.1 ABG Hemoglobin 8.7 L ABG Oxyhemoglobin 86.7 L ABG Methemoglobin 0.3 ABG Sodium 132.7 L ABG Potassium 5.2 H ABG Chloride 102.0 ABG Glucose 99 H Carboxyhemoglobin 1.2 FiO2 60.0 Sodium Potassium Chloride Carbon Dioxide Anion Gap BUN Creatinine Estimated GFR BUN/Creatinine Ratio Glucose POC Glucose Calcium Arterial Blood Glucose 99 H Arterial Blood Ionized Calcium 3.9 L Random Vancomycin 07/16/20 07/16/20 07/16/20 04:28 05:33 06:33 WBC RBC Hgb Hct MCV MCH MCHC RDW Plt Count ABG pH POC ABG pCO2 POC ABG pO2 POC ABG HCO3 POC ABG Base Excess ABG Hemoglobin ABG Oxyhemoglobin ABG Methemoglobin ABG Sodium ABG Potassium ABG Chloride ABG Glucose Carboxyhemoglobin FiO2 Sodium 136 L Potassium 5.4 H Chloride 95.0 L Carbon Dioxide 24 Anion Gap 22 BUN 85 H Creatinine 3.4 H Estimated GFR 22 BUN/Creatinine Ratio 25 Glucose 66 L POC Glucose 73 99 Calcium 6.8 L Arterial Blood Glucose Arterial Blood Ionized Calcium Random Vancomycin 07/16/20 07/16/20 07/16/20 07:17 07:29 11:52 WBC RBC Hgb 7.9 L Hct 24.4 L MCV MCH MCHC RDW Plt Count ABG pH POC ABG pCO2 POC ABG pO2 POC ABG HCO3 POC ABG Base Excess ABG Hemoglobin ABG Oxyhemoglobin ABG Methemoglobin ABG Sodium ABG Potassium ABG Chloride ABG Glucose Carboxyhemoglobin FiO2 Sodium Potassium Chloride Carbon Dioxide Anion Gap BUN Creatinine Estimated GFR BUN/Creatinine Ratio Glucose POC Glucose 124 H Calcium Arterial Blood Glucose Arterial Blood Ionized Calcium Random Vancomycin 13.5 07/16/20 07/16/20 07/16/20 18:06 18:08 23:23 WBC RBC Hgb 7.4 L Hct 22.5 L MCV MCH MCHC RDW Plt Count ABG pH POC ABG pCO2 POC ABG pO2 POC ABG HCO3 POC ABG Base Excess ABG Hemoglobin ABG Oxyhemoglobin ABG Methemoglobin ABG Sodium ABG Potassium ABG Chloride ABG Glucose Carboxyhemoglobin FiO2 Sodium Potassium Chloride Carbon Dioxide Anion Gap BUN Creatinine Estimated GFR BUN/Creatinine Ratio Glucose POC Glucose 108 H 104 Calcium Arterial Blood Glucose Arterial Blood Ionized Calcium Random Vancomycin
[2020-07-17] MEDS: fentaNYL DRIP Premix 2,000 MCG/100 ML BAG IV SCH ×5 (02:59→21:21)
[2020-07-17] MEDS: metroNIDAZOLE/NS 500 MG/100 ML 500 MG/100 ML BAG IV SCH ×3 (02:59→19:55)
[2020-07-17] MEDS: NORepinephrine/NS 4 MG-250 ML 4 MG/250 ML BAG IV SCH ×3 (04:57→18:07)
[2020-07-17] MEDS: SODIUM BICARBONATE 650 MG TAB PO SCH ×3 (08:43→19:56)
[2020-07-17] MEDS: CEFEPIME/NS 2 GM/100 ML 2 GM/100 ML BAG IV SCH (08:45)
--- NOTE | 2020-07-17 09:28 | Progress Note ---
Assessment and Plan Assessment and plan: 59-year-old white male who was admitted for pneumonia secondary to Covid with associated respiratory failure and sepsis. Severe septic shock COVID-19 pneumonia Acute metabolic encephalopathy Acute hypoxic respiratory failure Acute kidney injury likely secondary to acute tubular necrosis which progressed to hemodialysis SVT/proximal atrial fibrillation Elevated LFTs Hyperkalemia Severe Anemia likely due to severe sepsis had declining renal function Morbid obesity 06/18: Patient got intubated overnight. Patient was placed on BiPAP to maintain oxygenation with 100% FiO2 but apparently he found to take off his argueta which made his oxygen saturation go down at 60s/50s and patient was found altered mental status. Code met was called immediately. Patient was transferred to ICU and intubated, patient currently on 2 pressors, intubated with 100% FiO2, renal function noted to be decline, nephrology consulted. Discussed with [place] physician Dr. Thompson and requested call back on Saturday. Poor prognosis, continue to monitor with aggressive supportive care. Also called family/ to update clinical status. 06/19: Repeat COVID test was positive. cont cefepime, remdesivir per ID recommendation. follow inflammatory markers, cbc, bmp. placed on heparin drip for atrial fib 06/20: Remains on mechanical ventilation, on 2 pressors, on heparin drip. discussed with and daughter by phone. Renal function declining. cont supportive care for now. 06/21: Renal function cont to decline, urine outpt sig decreased. started on lasix 80mg BID, plan to follow urine output, if no improvement patient need to start on HD. called and daughter today. updated all clinical details 06/22: Renal function continues to decline with uremia and hyperkalemia. Will need to proceed with hemodialysis. Nephrology discussed with the family and they agrees for the hemodialysis. Patient remains on pressor support and mechanical ventilation. Vas-Cath placed today by vascular started on hemodialysis today. 06/23: 2nd round of HD today, remains on 2 pressors. per RN not tolerating TF, has no record of BM since 06/18. start on stool softner. follow cbc/bmp. updated family( and daughter) by phone -all question answered to best of my knowledge and to their satisfaction. Patient remains critically ill with a very poor prognosis. 06/24: Continue supportive care, Very poor prognosis, Cotton Broker to discuss with family in am due to the futility of the condition. 06/25/2020 continue supportive care very poor prognosis 06/26/2020 continue supportive care very poor prognosis family updated 06/27/2020 continue supportive care and weaning if possible 06/28/2020 continue supportive care, talk with at length 06/29: Resumed care. K level persistently high. give one dose of bicarbonate, plan for HD today, recheck k after HD. updated family by phone 06/30: updated family by phone. Patient remains on amiodarone drip and vasopressin. Getting HD at the bedside. Tolerating tube feeding at low rate. 07/01: Hb dropped to 6.4 today, transfuse one unit PRBC. patient is off pressor today, remains on amioderone. cont to monitor 07/02: Called patient and updated clinical details. Patient remains critically ill, still intubated. Patient's oxygen requirement and PEEP pressure has went down. Continue weaning protocol per critical care recommendation. Patient remains off pressor. Continue to wean off from amiodarone and plan to rate control with p.o. medications. Tolerating tube feeding. H&H stable today. Order for stool for occult blood. Monitor H&H and BMP. Continue to follow clinically 07/03: discussed with [place] physician today. Patient back on 100percent Fio2 since last night. planned for emergent Hd today. spiked fever, start IV C efepime + Vancomycin renally dosed. Restarted Levophed today, remains on amiodarone drip. Patient family was updated by critical care attending today. 07/04: Patient has hemodialysis yesterday and also plan for today for volume overload and pulmonary edema. Patient currently on 80% FiO2. Remains on Levophed and amiodarone. Hemoglobin dropped to 6.7 without any evidence of active bleeding. LFTs remain stable. Repeat Covid test on 06/30 and 07/03 remains positive. Will transfuse another unit of packed RBC today. Called family for update -explained family that patient is critically ill with very poor prognosis. 07/05: Patient on 70% FiO2 with PEEP of 14. h/h stable after transfusion. hyp erkalemia improved, cont sodiumbicarbonate pill with TF. follow BMP. off levophed today, remains on amioderone. poor prognosis. 07/06: Patient remains on amiodarone drip, maintaining BP without any pressor. FiO2 requirement trended down to 60% with PEEP of 14. Continue to follow clinically. Plan to wean off amiodarone drip as tolerated. Wean off from sedation as tolerated. Updated family. Patient remains critically ill with poor prognosis. 07/07: Called family for update. Off amiodarone drip today, patient also off pressor. FiO2 requirement trended up again to 80-100%. Continue to provide supportive care, monitor clinically. Having difficulty to wean off from the vent support. Patient is persistently positive for COVID-19 and COVID-19 antibody is nonreactive. Patient remains critically ill with very poor prognosis. 07/08: Continue supportive care. Roadway Designer shoe lacer and business development professional input noted. Prognosis remains guarded to poor. Management per team. Critical care time 35-minute 07/09/20 patient is tachycardic. Heart rate 121. Hemoglobin 7.3. Patient is having hemodialysis. Continue supportive care. Patient having difficulty to wean off from the vent support. Prognosis is poor. Nephrology and cardiology follow-up. Recheck CBC BMP in the morning. Continue current management. patient seen and examined, remains on full ventilator patient is doing better. Patient is off pressor. heart rate 123. Hemoglobin 6.8 and hematocrit 20.7. WBC is 18.1. Continue supportive care. Patient having difficulty to wean off from the vent support. We will started on Zosyn 4.5 g IV every 8 hours. Will transfuse 1 unit of packed red blood cell. Prognosis is poor. Nephrology and cardiology follow up. Recheck CBC BMP in the morning 07/11: remains off vasopressor, h/h appropriately responded to 1 unit PRBC. HD today. Remain on MV with fiO2 at 70%. peep 10. No acute events reported overnight. 07/12: Patient remains in atrial fibrillation on the cardiac monitor, vasopressor support with Levophed and vasopressin, sedated with fentanyl and propofol. Vent settings: CMV 500/25/14/0.60. Patient remains hypercarbic on ABG 07/13: Patient remains on vasopressin, fentanyl and propofol with rectal tube in place. This morning some examination patient was on assist control 25/500/14/0.60. Patient received hemodialysis today. No acute events reported overnight. 07/14: Remains on vasopressin, fentanyl and propofol with tube in place. Rectal tube in place with noted blood clots, GI consulted, on 07/13 H/H dropped from 8.7/27 to 7.4/22 and anticoagulation discontinued. This morning I spoke to his who still wishes for the patient to remain a full code despite update with continued use of vasopressor (vasopressin), current ventilatory support (CMV 500/25/14/0.60) and recent development of rectal bleeding. Patient's family requests an update from CCM and GI. Cardio changed amio from PO to IV given elevated HR 07/15: Today the patient received a total of 5 units of PRBC and is still having bleeding through his rectal tube. CTA abdomen/pelvis is pending, patient remains on Levophed, fentanyl, propofol, vasopressin and received hemodialysis today. He was also hyperkalemic today to 6 and he received insulin and D50. Extensive conversation with family conducted by CCM and hospitalist and his and 2 daughters did visit him today at the bedside. 07/16: Continues with full ventilatory support. FMS still inplace with some loose bloody stool. Still on multiple pressors, Bilateral swollen and generalized anascar. Monitor H/H and transfuse as needed. Monitor K level. Discussed with family at bedside yesterday. 07/17: Continue supportive care, transfusion blood possible in am with HD, continue abx, very poor prognosis, blood pressure still labile. Discussed with nurse at bedside -Vasopressor support (CCM and ID consulted, appreciate recommendations) -S/p dexamethasone and remdesivir therapy, contact/droplet isolation, remains on ventilation (wean as tolerated), vitamin C/vitamin D/zinc, anticoagulation per protocol, trend inflammatory markers -CT head with no acute process, supportive care -Wean mechanical ventilation as tolerated, VAP bundle -HD per nephrology -Amiodarone p.o. (remains in A. fib/a flutter) change to IV amiodarone, cardiology aware -Transfuse for hemaglobin less than 7, s/p 9 units PRBC during stay -Serial hemoglobin -Repeat BMP in a.m. -GI consulted, appreciate recommendations -CT abdomen/pelvis pending DVT prophylaxis: GI prophylaxis, heparin subcu, SCDs to bilateral LE while in bed Disposition: ICU ?placement ?trach/peg ?Ltach The high probability of a clinically significant, sudden or life threatening deterioration of the [multi] system(s) required my full and direct attention, intervention and personal management. The aggregate critical care time was [35] minutes. This time is in addition to time spent performing reported procedures but includes the following: [x] Data Review and interpretation [x] Patient assessment and monitoring of vital signs [x] Documentation [x] Medication orders and management History Interval history: patient seen and examined, remains on full ventilator, remains on multiple pressors. Still with blood clots around the FMS, Hospitalist Physical - Physical exam Narrative exam: General appearance: Present: severe distress, well-nourished, generalized edema - EENT ENT: poor dentition, ulcerations - Neck Neck: Absent: masses or JVD, carotid bruits - Respiratory Respiratory effort: on full ventilator support Respiratory: bilateral: diminished - Cardiovascular Rhythm: irregularly irregular Heart Sounds: Present: S1 & S2. Absent: systolic murmur, diastolic murmur - Extremities Extremities: no ischemia, pulses intact, pulses symmetrical Extremity abnormal: cyanosis - Peripheral Assessment Bilateral Generalized Edema Type: Pitting Edema Degree: 3+ Capillary Refill: < 3 seconds Skin Temperature: Cool Peripheral Pulses: within normal limits - Abdominal General gastrointestinal: soft, non-tender, non-distended, hypoactive bowel sounds, absent bowel sounds - Integumentary Integumentary: Present: dry, pale - Psychiatric Psychiatric: other (Sedated) - Neurologic Neurologic: other (Sedated) - Constitutional Vitals: Temp Pulse Resp BP Pulse Ox 98.2 F 124 H 25 H 88/43 98 07/17/20 04:00 07/17/20 07:55 07/17/20 06:45 07/17/20 07:55 07/17/20 07:55 General appearance: Present: severe distress, well-nourished HEART Score - HEART Score Troponin: Troponin T < 0.010 ng/mL (0.00-0.029) 06/17/20 12:33 Results - Labs CBC & Chem 7: 07/16/20 18:08 07/16/20 04:28 Labs: Laboratory Last Values WBC 48.9 K/mm3 (4.5-11.0) H* 07/16/20 04:28 RBC 2.86 M/mm3 (3.65-5.03) L 07/16/20 04:28 Hgb 7.4 gm/dl (11.8-15.2) L 07/16/20 18:08 Hct 22.5 % (35.5-45.6) L 07/16/20 18:08 MCV 89 fl (84-94) 07/16/20 04:28 MCH 30 pg (28-32) 07/16/20 04:28 MCHC 34 % (32-34) 07/16/20 04:28 RDW 15.6 % (13.2-15.2) H 07/16/20 04:28 Plt Count 279 K/mm3 (140-440) 07/16/20 04:28 Lymph % (Auto) 5.6 % (13.4-35.0) L 07/12/20 03:40 Tate % (Auto) 7.4 % (0.0-7.3) H 07/12/20 03:40 Eos % (Auto) 2.8 % (0.0-4.3) 07/12/20 03:40 Baso % (Auto) 0.3 % (0.0-1.8) 07/12/20 03:40 Lymph # (Auto) 1.4 K/mm3 (1.2-5.4) 07/12/20 03:40 Tate # (Auto) 1.8 K/mm3 (0.0-0.8) H 07/12/20 03:40 Eos # (Auto) 0.7 K/mm3 (0.0-0.4) H 07/12/20 03:40 Baso # (Auto) 0.1 K/mm3 (0.0-0.1) 07/12/20 03:40 Add Manual Diff Complete 07/15/20 08:21 Total Counted 100 07/15/20 08:21 Seg Neutrophils % Shell Maker Lockstitch 07/14/20 16:44 Seg Neuts % (Manual) 89.0 % (40.0-70.0) H 07/15/20 08:21 Band Neutrophils % 7.0 % 07/14/20 16:44 Lymphocytes % (Manual) 7.0 % (13.4-35.0) L 07/15/20 08:21 Reactive Lymphs % (Man) 1.0 % 06/23/20 04:00 Monocytes % (Manual) 4.0 % (0.0-7.3) 07/15/20 08:21 Eosinophils % (Manual) 4.0 % (0.0-4.3) 07/11/20 06:52 Metamyelocytes % 7.0 % 07/14/20 16:44 Myelocytes % 2.0 % 07/10/20 03:55 Nucleated RBC % Not Reportable 07/15/20 08:21 Seg Neutrophils # 20.4 K/mm3 (1.8-7.7) H 07/12/20 03:40 Seg Neutrophils # Man 40.5 K/mm3 (1.8-7.7) H 07/15/20 08:21 Band Neutrophils # 0.0 K/mm3 07/15/20 08:21 Lymphocytes # (Manual) 3.2 K/mm3 (1.2-5.4) 07/15/20 08:21 Abs React Lymphs (Man) 0.0 K/mm3 07/15/20 08:21 Monocytes # (Manual) 1.8 K/mm3 (0.0-0.8) H 07/15/20 08:21 Eosinophils # (Manual) 0.0 K/mm3 (0.0-0.4) 07/15/20 08:21 Basophils # (Manual) 0.0 K/mm3 (0.0-0.1) 07/15/20 08:21 Metamyelocytes # 0.0 K/mm3 07/15/20 08:21 Myelocytes # 0.0 K/mm3 07/15/20 08:21 Promyelocytes # 0.0 K/mm3 07/15/20 08:21 Blast Cells # 0.0 K/mm3 07/15/20 08:21 Pathologist Review Not Reportable 06/26/20 05:47 WBC Morphology Not Reportable 07/15/20 08:21 Hypersegmented Neuts Not Reportable 07/15/20 08:21 Hyposegmented Neuts Not Reportable 07/15/20 08:21 Hypogranular Neuts Not Reportable 07/15/20 08:21 Smudge Cells Not Reportable 07/15/20 08:21 Toxic Granulation Not Reportable 07/15/20 08:21 Toxic Vacuolation Not Reportable 07/15/20 08:21 Dohle Bodies Not Reportable 07/15/20 08:21 Pelger-Huet Anomaly Not Reportable 07/15/20 08:21 Carlito Rods Not Reportable 07/15/20 08:21 Platelet Estimate Appears normal 07/15/20 08:21 Clumped Platelets Not Reportable 07/15/20 08:21 Plt Clumps, EDTA Not Reportable 07/15/20 08:21 Large Platelets Not Reportable 07/15/20 08:21 Giant Platelets Rare 07/15/20 08:21 Platelet Satelliting Not Reportable 07/15/20 08:21 Plt Morphology Comment Not Reportable 07/15/20 08:21 RBC Morphology Not Reportable 07/15/20 08:21 Dimorphic RBCs Not Reportable 07/15/20 08:21 Polychromasia Not Reportable 07/15/20 08:21 Hypochromasia Not Reportable 07/15/20 08:21 Poikilocytosis Few 07/15/20 08:21 Anisocytosis Not Reportable 07/15/20 08:21 Microcytosis Not Reportable 07/15/20 08:21 Macrocytosis Rare 07/15/20 08:21 Spherocytes Not Reportable 07/15/20 08:21 Pappenheimer Bodies Not Reportable 07/15/20 08:21 Sickle Cells Not Reportable 07/15/20 08:21 Target Cells Not Reportable 07/15/20 08:21 Tear Drop Cells Not Reportable 07/15/20 08:21 Ovalocytes Not Reportable 07/15/20 08:21 Stomatocytes Rare 07/10/20 03:55 Helmet Cells Not Reportable 07/15/20 08:21 Brothers-Drexel Bodies Not Reportable 07/15/20 08:21 [place] Rings Not Reportable 07/15/20 08:21 [place] Cells Not Reportable 07/15/20 08:21 Bite Cells Not Reportable 07/15/20 08:21 Crenated Cell Not Reportable 07/15/20 08:21 Elliptocytes Not Reportable 07/15/20 08:21 Acanthocytes (Spur) Not Reportable 07/15/20 08:21 Rouleaux Not Reportable 07/15/20 08:21 Hemoglobin C Crystals Not Reportable 07/15/20 08:21 Schistocytes Not Reportable 07/15/20 08:21 Malaria parasites Not Reportable 07/15/20 08:21 Victoriano Bodies Not Reportable 07/15/20 08:21 Hem Pathologist Commnt No 07/15/20 08:21 PT 17.6 Sec. (12.2-14.9) H 07/15/20 08:21 INR 1.46 (0.87-1.13) H 07/15/20 08:21 APTT 28.5 Sec. (24.2-36.6) 06/26/20 05:47 Fibrinogen 419 mg/dl (211-480) 07/15/20 08:21 D-Dimer 6608.00 ng/mlDDU (0-234) H 07/03/20 14:50 Heparin Anti-Xa Level < 0.10 U.I./ml (0.3-0.7) L 06/26/20 01:30 ABG pH 7.313 (7.320-7.450) L 07/17/20 03:27 POC ABG pCO2 50.9 mmHg (32.0-48.0) H 07/17/20 03:27 ABG pCO2 56.4 mm Hg 07/05/20 04:30 POC ABG pO2 86.1 mmHg (83-108) 07/17/20 03:27 ABG pO2 151.9 mm Hg (80.0-90.0) H 07/05/20 04:30 POC ABG HCO3 25.2 07/17/20 03:27 ABG HCO3 26.8 mmol/L (20.0-26.0) H 07/05/20 04:30 ABG O2 Saturation 98.7 % (95.0-99.0) 07/05/20 04:30 ABG O2 Content 5.0 (0.0-44) 07/04/20 05:20 POC ABG Base Excess -1.1 07/17/20 03:27 ABG Base Excess 0.1 mmol/L (-2.0-3.0) 07/05/20 04:30 ABG Hemoglobin 7.5 (12.0-17.5) L 07/17/20 03:27 ABG Oxyhemoglobin 86.7 (94-98) L 07/16/20 03:38 ABG Carboxyhemoglobin 1.7 % (0.0-5.0) 07/05/20 04:30 ABG Methemoglobin 0.3 (0.0-1.5) 07/16/20 03:38 ABG Sodium 131.8 mmol/L (136.0-145.0) L 07/17/20 03:27 ABG Potassium 4.6 mmol/L (3.40-4.50) H 07/17/20 03:27 ABG Chloride 101.0 mmol/L (98-107) 07/17/20 03:27 ABG Glucose 105 mg/dL (65-95) H 07/17/20 03:27 Oxyhemoglobin 96.5 % (95.0-99.0) 07/05/20 04:30 Carboxyhemoglobin 1.2 (0.5-1.5) 07/16/20 03:38 FiO2 70 07/17/20 03:27 Sodium 136 mmol/L (137-145) L 07/16/20 04:28 Potassium 5.4 mmol/L (3.6-5.0) H 07/16/20 04:28 Chloride 95.0 mmol/L (98-107) L 07/16/20 04:28 Carbon Dioxide 24 mmol/L (22-30) 07/16/20 04:28 Anion Gap 22 mmol/L 07/16/20 04:28 BUN 85 mg/dL (9-20) H 07/16/20 04:28 Creatinine 3.4 mg/dL (0.8-1.3) H 07/16/20 04:28 Estimated GFR 22 ml/min 07/16/20 04:28 BUN/Creatinine Ratio 25 % 07/16/20 04:28 Glucose 66 mg/dL (75-100) L 07/16/20 04:28 POC Glucose 82 mg/dL (70-105) 07/17/20 05:38 Lactic Acid 1.40 mmol/L (0.7-2.0) 07/13/20 08:48 Calcium 6.8 mg/dL (8.4-10.2) L 07/16/20 04:28 Phosphorus 9.40 mg/dL (2.5-4.5) H 06/30/20 03:50 Magnesium 2.70 mg/dL (1.7-2.3) H 06/18/20 20:33 Ferritin 1171.0 ng/mL (30.0-300.0) H 07/03/20 14:50 Total Bilirubin 0.70 mg/dL (0.1-1.2) 07/13/20 06:59 Direct Bilirubin 0.5 mg/dL (0-0.2) H 07/05/20 08:21 Indirect Bilirubin 0.1 mg/dL 07/05/20 08:21 AST 61 units/L (5-40) H 07/13/20 06:59 ALT 85 units/L (7-56) H 07/13/20 06:59 Alkaline Phosphatase 144 units/L (35-129) H 07/13/20 06:59 Lactate Dehydrogenase 525 units/L (91-180) H 07/03/20 14:50 Total Creatine Kinase 618 units/L (55-170) H 06/29/20 Unknown Troponin T < 0.010 ng/mL (0.00-0.029) 06/17/20 12:33 C-Reactive Protein 31.50 mg/dL (0.00-1.30) H 07/03/20 14:50 Total Protein 5.4 g/dL (6.3-8.2) L 07/13/20 06:59 Albumin 2.0 g/dL (3.9-5) L 07/13/20 06:59 Albumin/Globulin Ratio 0.6 % 07/13/20 06:59 Triglycerides 246 mg/dL (2-149) H 07/12/20 04:00 Procalcitonin 6.05 ng/mL (<0.15) 07/13/20 06:59 Arterial Blood Glucose 105 mg/dL (65-95) H 07/17/20 03:27 Arterial Blood Ionized Calcium 3.9 mg/dL (4.6-5.3) L 07/17/20 03:27 Urine Color Yellow (Yellow) 06/17/20 15:57 Urine Turbidity Clear (Clear) 06/17/20 15:57 Urine pH 6.0 (5.0-7.0) 06/17/20 15:57 Ur Specific Clarita 1.019 (1.003-1.030) 06/17/20 15:57 Urine Protein 30 mg/dl mg/dL (Negative) 06/17/20 15:57 Urine Glucose (UA) Neg mg/dL (Negative) 06/17/20 15:57 Urine Ketones Neg mg/dL (Negative) 06/17/20 15:57 Urine Blood Sm (Negative) 06/17/20 15:57 Urine Nitrite Neg (Negative) 06/17/20 15:57 Ur Reducing Substances Not Reportable 06/17/20 15:57 Urine Bilirubin Neg (Negative) 06/17/20 15:57 Urine Ictotest Not Reportable 06/17/20 15:57 Urine Urobilinogen < 2.0 mg/dL (<2.0) 06/17/20 15:57 Ur Leukocyte Esterase Neg (Negative) 06/17/20 15:57 Urine WBC (Auto) 1.0 /HPF (0.0-6.0) 06/17/20 15:57 Urine RBC (Auto) 2.0 /HPF (0.0-6.0) 06/17/20 15:57 Urine Mucus Few /HPF 06/17/20 15:57 Urine Creatinine 192.4 mg/dL (0.1-20.0) H 06/18/20 15:00 Urine Sodium 28 mmol/L 06/18/20 15:00 Urine Chloride 31.1 mmolL (110-250) L 06/18/20 15:00 Nasal Screen MRSA (PCR) Negative (Negative) 06/19/20 10:38 Vancomycin Trough 22.7 ug/mL (5.0-20.0) H 06/20/20 08:25 Random Vancomycin 13.5 ug/mL (0-40.0) 07/16/20 07:17 Coronavirus (PCR) Positive (Negative) A 07/03/20 10:10 Hepatitis A IgM Ab Non-reactive (NonReactive) 06/22/20 17:00 Hep Bs Antigen Non-reactive (Negative) 06/22/20 17:00 Hep B Core IgM Ab Non-reactive (NonReactive) 06/22/20 17:00 Hepatitis C Antibody Non-reactive (NonReactive) 06/22/20 17:00 SARS-CoV-2 IgG Ab Nonreactive (NonReactive) 07/04/20 05:20 Blood Type A POSITIVE 07/13/20 16:46 Antibody Screen Negative 07/13/20 16:46 Crossmatch See Detail 07/13/20 16:46 Microbiology: Microbiology 07/15/20 08:21 Peripheral/Venous Blood Culture - Preliminary NO GROWTH AFTER 24 HOURS 07/15/20 08:38 Peripheral/Venous Blood Culture - Preliminary NO GROWTH AFTER 24 HOURS - Diagnostic Impressions Diagnostic Impressions: Echocardiogram 06/29/20 06:00 Transthoracic Echocardiogram Indication: A-fib BP: 105/47 HR: 99 Conclusions *The study is technically very difficult and limited due to poor acoustic windows. *Global left ventricular wall motion and contractility are within normal limits. *The estimated ejection fraction is 55-60%. *There is no pericardial effusion. Findings Procedure Info: The study quality is technically difficult. The study is technically limited due to poor acoustic windows. Left Ventricle: Global left ventricular wall motion and contractility are within normal limits. Global left ventricular systolic function is normal. The estimated ejection fraction is 55-60%. Left Atrium: The left atrium is not well visualized. Right Ventricle: The right ventricle is not well visualized. Right Atrium: The right atrium is not well visualized. Aortic Valve: The aortic valve is not well visualized. Mitral Valve: The mitral valve is not well visualized. Tricuspid Valve: The tricuspid valve is not well visualized. Pulmonic Valve: The pulmonic valve is not well visualized. Pericardium: There is no pericardial effusion. Venous: There is no change in the dimension of the inferior vena cava with respiration consistent with markedly increased right atrial pressure. Newell/IV: Voiding Method Indwelling Catheter Active Medications - Current Medications Current Medications: Generic Name Dose Route Start Last Admin Trade Name Freq PRN Reason Stop Dose Admin Acetaminophen 650 mg 06/17/20 14:17 07/03/20 09:16 Acetaminophen 325 Mg Tab PO 650 mg Q4H PRN Administration Pain MILD(1-3)/Fever >100.5/ROBERTS Lipase/Protease/Amylase 1 each 06/19/20 12:15 Lipase 10,500/Protease 25,000/Amylase 43,750 (Units) Dr Kulkarni FEEDTUBE PRN PRN For Clogged Feeding Tube Ascorbic Acid 250 mg 06/17/20 22:00 07/16/20 21:35 Ascorbic Acid 250 Mg Tab PO 250 mg BID CONNOR Administration Cholecalciferol 1,000 unit 06/18/20 10:00 07/16/20 10:05 Cholecalciferol (Vit D3) 1000 Unit (25 Mcg) Tab PO Not Given DAILY CONNOR Docusate Sodium 100 mg 06/23/20 15:00 07/16/20 21:34 Docusate Sodium 100 Mg/10 Ml Oral Liqd FEEDTUBE 100 mg BID CONNOR Administration Fentanyl 50 mcg 06/18/20 01:02 07/09/20 00:20 Fentanyl 100 Mcg/2 Ml Inj IV 50 mcg Q10MIN PRN Administration ANALGESIA Heparin Sodium (Porcine) 5,000 unit 06/22/20 12:53 06/30/20 13:36 Heparin 10,000 Unit/1 Ml Vial IV 5,000 unit PAM PRN Administration hemodialysis Hydrophilic Ointment 1 applic 06/17/20 22:52 07/12/20 20:22 Lip Therapy Vaseline TP 1 applic Q2HR PRN Administration Dry Lips Propofol 1,000 mg in 100 mls @ 3.402 mls/hr 06/18/20 01:00 07/17/20 08:43 Diprivan 10 Mg/Ml IV 10 mcg/kg/min TITR CONNOR 6.804 mls/hr Administration Protocol 5 MCG/KG/MIN Fentanyl Citrate 2,000 mcg in 100 mls @ 8 mls/hr 06/18/20 02:00 07/17/20 08:44 Fentanyl Drip Premix IV 3 mcg/kg/hr TITR CONNOR 24 mls/hr Administration Protocol 1 MCG/KG/HR Norepinephrine 4 mg in 250 mls @ 7.5 mls/hr 07/08/20 02:06 07/17/20 04:57 Levophed Drip 4 Mg/Ns 250 Ml IV 8 mcg/min TITR CONNOR 30 mls/hr Administration Protocol 2 MCG/MIN Vasopressin 20 unit/ Sodium 101 mls @ 9.09 mls/hr 07/11/20 11:00 07/17/20 00:57 Chloride IV 0.03 units/min TITR CONNOR 9.09 mls/hr Administration Protocol 0.03 UNITS/MIN Amiodarone HCl 900 mg/ 500 mls @ 33.333 mls/hr 07/14/20 12:30 07/16/20 14:50 Dextrose IV 0.5 mg/min DIRECT CONNOR 16.667 mls/hr Administration Protocol 1 MG/MIN Cefepime HCl 2 gm in 100 mls @ 200 mls/hr 07/15/20 08:00 07/17/20 08:45 Cefepime/Ns 2 Gm/100 Ml IV 200 mls/hr Q24H CONNOR Administration Protocol Sodium Chloride 100 mls @ 999 mls/hr 07/15/20 14:18 Nacl 0.9% IV PAM PRN Hypotension Metronidazole 500 mg in 100 mls @ 100 mls/hr 07/15/20 20:00 07/17/20 02:59 Flagyl 500 Mg/100 Ml IV 100 mls/hr Q8H CONNOR Administration Protocol Vancomycin HCl 2,000 mg/ 540 mls @ 250 mls/hr 07/17/20 10:00 Sodium Chloride IV 07/17/20 12:09 ONCE ONE Insulin Human Regular 0 units 06/18/20 12:00 07/17/20 06:53 Insulin Regular, Human 100 Units/1 Ml SUB-Q Not Given Q6HR [facility] Protocol Multi-Ingred Cream/Lotion/Oil/Oint 1 applic 06/17/20 22:52 07/12/20 20:22 Mineral Oil/Petrolatum, White Ophth Oint 3.5 Gm OU 1 applic Q4HR PRN Administration Dry Eye(s) Ondansetron HCl 4 mg 06/17/20 14:17 Ondansetron 4 Mg/2 Ml Inj IV Q8H PRN Nausea And Vomiting Pantoprazole Sodium 40 mg 07/16/20 22:00 07/16/20 21:34 Pantoprazole 40 Mg Inj IV 40 mg BID [facility] Administration Polyethylene Glycol 17 gm 06/23/20 15:00 07/16/20 10:04 Polyethylene Glycol 3350 17 Gm Powder PO Not Given QDAY [facility] Quetiapine Fumarate 200 mg 06/28/20 13:00 07/16/20 21:35 Quetiapine 200 Mg Tab PO 200 mg BID [facility] Administration Simple Syrup 15 ml 06/19/20 12:15 Simple Syrup 15 Ml FEEDTUBE PRN PRN Hypoglycemia Simple Syrup 30 ml 06/19/20 12:15 Simple Syrup 15 Ml FEEDTUBE PRN PRN Hypoglycemia Sodium Bicarbonate 325 mg 06/19/20 12:15 07/11/20 20:00 Sodium Bicarbonate 325 Mg Tab FEEDTUBE 325 mg PRN PRN Administration For Clogged Feeding Tube Sodium Bicarbonate 650 mg 07/04/20 10:00 07/17/20 08:43 Sodium Bicarbonate 650 Mg Tab PO 650 mg TID [facility] Administration Sodium Chloride 10 ml 06/17/20 22:00 07/17/20 09:16 Sodium Chloride 0.9% 10 Ml Flush Syringe IV 10 ml BID [facility] Administration Sodium Chloride 10 ml 06/17/20 14:17 Sodium Chloride 0.9% 10 Ml Flush Syringe IV PRN PRN LINE FLUSH Sodium Polystyrene Sulfonate 15 gm 07/03/20 11:19 07/05/20 10:36 Sodium Polystyrene 15 Gm/60 Ml Oral Liqd PO 15 gm Q6HR PRN Administration Hyperkalemia Zinc Sulfate 220 mg 06/17/20 22:00 07/16/20 21:35 Zinc Sulfate 220 Mg Cap PO 220 mg BID [facility] Administration Nutrition/Malnutrition Assess - Dietary Evaluation Nutrition/Malnutrition Findings: Nutrition Notes Start: 06/18/20 10:28 Freq: Status: Active Protocol: Document 07/12/20 11:11 AL (Rec: 07/12/20 11:15 AL [id number]) Co-Sign 07/12/20 11:11 LP Nutrition Notes Initial or Follow up Reassessment Current Diagnosis Acute Kidney Injury,Sepsis, Respiratory Failure Other Pertinent Diagnosis COVID-19 (+), pneu Current Diet Nepro 1.8 at 40ml/hr Labs/Tests Na 134 BUN 79 Cr 3.7 Pertinent Medications Propofol at 6.8 ml/hr (180 kcal) Levophed Vasopressin Height 6 ft Weight 160 kg [place] Body Weight (kg) 80.90 BMI 47.8 Weight change and time frame Wt change of 30 kg noted. Pt on HD Weight Status Obese Subjective/Other Information FU for stable TF. Pt tolerating TF at 40 ml/hr ( goal rate). Percent of energy/protein needs met: 89%/48% Burn Absent Trauma Absent Current % PO Negligible Minimum of two criteria No physical signs of malnutrition #2 Nutrition Diagnosis Overweight/obesity Diagnosis Progress(for reassessment Continues documentation) #1 Nutrition Diagnosis Inadequate oral intake Diagnosis Progress(for reassessment Continues documentation) Is patient on ventilator? Yes Is Patient Ambulatory and/or Out of Bed No REE-([facility]-confined to bed) 2929.632 Kcal/Kg value to use for calculation 12 Approximate Energy Requirements Using 1920 kcal/Kg Calculation Used for Recommendations Kcal/kg Additional Notes Protein needs up to >2 g/kg IBW: 162 g Fluid needs: 1,000 ml + output Nutrition Intervention Change Diet Order: TF Nutrition Support: Nepro 1.8 at 50 ml/hr Flush 215 ml q4h Kcal 2,160 Protein (gm) 97 Fluid (mL) 872 Goal #1 Tolerate TF at goal rate Goal #2 Meet energy and protein needs as best as possible. Anticipated Discharge Needs: Unable to determine at the time. Follow-Up By: 07/19/20 Additional Comments F/U for TF tolerance and vent status
[2020-07-17] MEDS ORDERED: SODIUM CHLORIDE 0.9% 500 ML 500 ML IV NR (09:32)
--- NOTE | 2020-07-17 09:50 | Progress Note ---
Assessment and Plan no changes overnight cont iv amio for afib w vvr - lfts only minimally elevated on 07/13 - will recheck in am off anticoagulation due to anemia/gib very poor prognosis - Patient Problems (1) GIRISH (acute kidney injury) Current Visit: Yes Status: Acute (2) Acute renal failure Current Visit: Yes Status: Acute Qualifiers: Acute renal failure type: with acute tubular necrosis Qualified Code(s): N17.0 - Acute kidney failure with tubular necrosis (3) Acute respiratory failure with hypoxia Current Visit: Yes Status: Acute (4) Anemia Current Visit: Yes Status: Acute Qualifiers: Other causes of anemia: acute posthemorrhagic (5) Atrial fibrillation with rapid ventricular response Current Visit: Yes Status: Acute (6) COVID-19 Current Visit: Yes Status: Acute (7) Metabolic acidosis Current Visit: Yes Status: Acute (8) Pneumonia Current Visit: Yes Status: Acute (9) Pneumonia due to COVID-19 virus Current Visit: Yes Status: Acute (10) Sepsis Current Visit: Yes Status: Acute Qualifiers: Severe sepsis acute organ dysfunction type: acute respiratory failure Severe sepsis shock status: with septic shock (11) Severe sepsis with septic shock Current Visit: Yes Status: Acute Subjective Principal diagnosis: ARF; Septic Shock; COVID-19 PNA; Atrial fibrillation; Obesity Interval history: no changes overnight Objective Vital Signs Temp Pulse Pulse Resp BP Pulse Ox Pulse Ox 07/17/20 07:55 124 H 88/43 98 07/17/20 06:45 111 H 25 H 92/48 97 07/17/20 06:30 117 H 27 H 91/51 94 07/17/20 06:15 119 H 30 H 94/48 95 07/17/20 06:00 117 H 33 H 103/55 95 07/17/20 05:45 123 H 33 H 129/57 92 07/17/20 05:30 115 H 28 H 129/57 97 07/17/20 05:15 118 H 32 H 101/54 97 07/17/20 05:00 115 H 25 H 95/65 100 07/17/20 04:45 118 H 11 L 94/51 98 07/17/20 04:30 118 H 13 101/54 96 07/17/20 04:15 124 H 16 96/50 96 07/17/20 04:00 98.2 F 120 H 17 103/51 96 07/17/20 03:45 119 H 23 147/77 97 07/17/20 03:38 122 H 147/77 90 07/17/20 03:30 116 H 18 147/77 92 07/17/20 03:15 118 H 35 H 181/70 85 07/17/20 03:01 124 H 22 121/68 94 07/17/20 02:45 103 H 15 121/68 99 07/17/20 02:30 116 H 21 115/67 96 07/17/20 02:15 116 H 17 117/67 98 07/17/20 02:00 109 H 26 H 123/66 98 07/17/20 01:45 104 H 14 122/57 97 07/17/20 01:30 97 H 14 106/63 95 07/17/20 01:15 115 H 19 98/63 98 07/17/20 01:00 116 H 19 118/62 98 07/17/20 00:45 112 H 16 115/59 97 07/17/20 00:30 116 H 13 109/56 96 07/17/20 00:15 110 H 15 109/61 96 07/17/20 00:00 98.4 F 116 H 15 107/61 96 07/16/20 23:45 115 H 12 107/62 95 07/16/20 23:31 115 H 16 115/61 96 07/16/20 23:30 119 H 17 115/61 96 07/16/20 23:15 118 H 13 113/63 97 07/16/20 23:14 111 H 119/61 97 07/16/20 23:00 115 H 26 H 125/61 98 07/16/20 22:45 116 H 22 137/74 96 07/16/20 22:30 109 H 28 H 129/80 97 07/16/20 22:15 117 H 18 132/82 98 07/16/20 22:00 108 H 25 H 104/68 97 07/16/20 21:45 109 H 25 H 104/68 97 07/16/20 21:30 113 H 13 115/59 97 07/16/20 21:15 116 H 16 108/64 96 07/16/20 21:00 112 H 11 L 109/60 97 07/16/20 20:45 121 H 12 99/60 97 07/16/20 20:30 113 H 13 106/63 03/06/21 20:15 110 H 17 110/64 97 07/16/20 20:00 98.3 F 116 H 25 H 138/68 98 07/16/20 19:45 115 H 19 106/60 97 07/16/20 19:30 117 H 13 106/60 07/16/20 19:15 118 H 17 123/63 96 07/16/20 19:14 118 H 119/61 98 07/16/20 19:00 112 H 25 H 123/63 97 07/16/20 18:45 123 H 15 123/69 97 07/16/20 18:31 109 H 22 136/66 99 07/16/20 18:15 118 H 19 105/67 98 07/16/20 18:06 115 H 105/67 98 07/16/20 18:01 117 H 18 105/67 97 07/16/20 17:45 120 H 14 88/48 97 07/16/20 17:30 117 H 17 94/53 95 07/16/20 17:15 118 H 20 93/59 96 07/16/20 17:00 115 H 24 106/65 97 07/16/20 16:45 121 H 25 H 141/66 99 07/16/20 16:30 120 H 18 141/66 100 07/16/20 16:15 114 H 19 147/90 97 07/16/20 16:01 115 H 18 147/90 99 07/16/20 16:00 120 H 120 H 30 H 93 07/16/20 15:45 121 H 21 147/90 99 07/16/20 15:30 121 H 22 136/82 98 07/16/20 15:15 111 H 20 125/69 100 07/16/20 15:08 124 H 125/69 96 07/16/20 15:00 123 H 15 125/69 98 07/16/20 14:45 124 H 14 130/71 98 07/16/20 14:30 124 H 15 103/59 98 07/16/20 14:15 125 H 22 103/59 96 07/16/20 14:00 125 H 18 113/71 96 07/16/20 13:45 127 H 18 119/75 96 07/16/20 13:30 98.6 F 128 H 18 114/73 96 07/16/20 13:15 131 H 21 111/73 94 07/16/20 13:00 133 H 24 109/66 94 07/16/20 12:45 130 H 22 112/71 96 07/16/20 12:30 128 H 21 116/68 96 07/16/20 12:15 127 H 22 98/67 95 07/16/20 12:01 130 H 24 89/59 93 07/16/20 12:00 124 H 124 H 34 H 98/58 92 07/16/20 11:45 133 H 22 89/59 91 07/16/20 11:35 129 H 84/54 07/16/20 11:30 132 H 24 90/57 89 07/16/20 11:15 121 H 23 104/65 86 07/16/20 11:00 119 H 26 H 104/65 87 07/16/20 10:45 121 H 26 H 119/75 89 07/16/20 10:30 115 H 26 H 111/73 90 07/16/20 10:20 117 H 111/58 07/16/20 10:15 121 H 23 123/72 96 07/16/20 10:00 98.7 F 113 H 28 H 111/58 94 89 - Physical Examination General: Other (intubated, lethargic) Neck: Positive: neck supple Neuro: Positive: Other (intubated, lethargic) Abdomen: Positive: Soft Skin: Negative: Rash, Wound Extremities: Present: upper extr. pulses, lower extr. pulses, +1 Edema - Labs and Meds CBC 07/16/20 Range/Units 18:08 Hgb 7.4 L (11.8-15.2) gm/dl Hct 22.5 L (35.5-45.6) % - Imaging and Cardiology EKG: report reviewed, image reviewed Echo: report reviewed (TDS, EF 55-60%. ) - EKG Sinus rhythms and dysrhythmias: sinus tachycardia - Allied health notes Allied health notes reviewed: nursing
[2020-07-17] MEDS ORDERED: VANCOMYCIN 2,000 MG in SODIUM CHLORIDE 0.9% 500 ML 500 ML IV ONE (10:00)
[2020-07-17] MEDS: PANTOPRAZOLE 40 MG INJ IV SCH ×2 (10:07→21:24)
[2020-07-17] MEDS: POLYETHYLENE GLYCOL 3350 17 GM POWDER PO SCH (10:08)
[2020-07-17] MEDS: DOCUSATE SODIUM 100 MG/10 ML ORAL LIQD FEEDTUBE SCH ×2 (10:08→21:21)
[2020-07-17] MEDS: QUEtiapine 200 MG TAB PO SCH ×2 (10:09→21:21)
[2020-07-17] MEDS: ASCORBIC ACID 250 MG TAB PO SCH ×2 (10:09→21:22)
[2020-07-17] MEDS: ZINC SULFATE 220 MG CAP PO SCH ×2 (10:10→21:22)
[2020-07-17] MEDS: CHOLECALCIFEROL (VIT D3) 1000 UNIT (25 mcg) TAB PO SCH (10:10)
--- NOTE | 2020-07-17 11:17 | Progress Note ---
Assessment and Plan Acute hypoxemic respiratory failure due to COVID-19 Severe COVID infection Severe Sepsis with shock Bilateral pneumonia Acute kidney injury (GIRISH) with acute tubular necrosis (ATN) Elevated liver enzymes Obesity - s/p RIJ CVL (ok to use) - CT abd & pelvis when more stable - trend H&H per G.I. team rec's - changed to bid protonix - keep NPO status till cleared by GI - wean vasopressors for target MAP > 65 mmHg - follow cultures - continue empiric Vanc and Cefepime (await ID input) - continue care as below otherwise; - therapeutic anticoagulation remains on hold - continue HD/UF per nephrology prescription for toxin and volume clearance - keep peep at 14 - continue daily SAT's & SBT's as tolerated - continue tube feeds and advance to goal rate as tolerated - continue HD/UF per nephrology team for toxin and volume clearance - continue bowel regimen - rate control per cardiology team for afib RVR - Continue to wean supplemental oxygen for O2 sats >92% - Monitor blood pressure closely while optimizing sedation,wean vasopressor support for MAP > 65 mmHg - Critical care prone positioning - VAP bundle addressed, aspiration precautions HOB >40 - continue lung protective strategies, permissive hypercapnic acceptable. - continue bronchodilators with pulmonary hygiene per RT - wean per pulmonary driven protocols otherwise - accuchecks with glycemic control per SSI (While critically ill target blood glucose of 140-180 mg/dL; avoid hypoglycemia) - sedation prn for target RASS -1 to -2 - continue enteral nutritional support at goal rate as tolerated - s/p antibiotics per ID recommendations - Monitor liver function test ,avoid hepatotoxic agents - azotemia per nephrology rec's - Avoid nephrotoxins, renally dose all medications, conservative fluid management - continue to avoid benzodiazepines, reduce the possibility of delirium, - prn analgesia per CPOT score - Maintenance of sleep-wake cycle, avoid delirium - Stress ulcer prophylaxis, Famotidine - PT/OT/ROM exercises - Mobility protocols for pressure ulcer prevention - CXR, ABG in am - CBC, CMP in am - Supportive transfusions to keep HgB >7g/dL - Monitor hemodynamics closely - continue other care per attending / other consultants COVID SPECIFIC INTERVENTIONS - s/p steroids: Dexamethasone - completed Remdesivir - monitor inflammatory markers prn - ferritin, D-dimer, CRP, LDH per facility protocol - continue anticoagulation per System Protocol based on d-dimer (on hold due to bleeding) - continue contact and airborne isolation CONDITION: CRITICAL PROGNOSIS: GUARDED CODE STATUS: FULL CODE The high probability of a clinically significant, sudden or life-threatening deterioration of the [respiratory, cardiovascular, hematologic & neurologic] system(s) required my full and direct attention, intervention and personal management. The aggregate critical care time was [40] minutes without overlap. Time includes spent on; [x] Data Review and interpretation [x] Patient assessment and monitoring of vital signs [x] Documentation [x] Medication orders and management He was evaluated in the context of the global COVID-19 pandemic, which necessitated consideration that the patient might be at risk for infection with the virus that causes COVID-19. Institutional protocols and algorithms that pertain to the evaluation of patients at risk for COVID-19 are in a state of rapid change based on information released by regulatory bodies including the CDC and federal and state organizations. These policies and algorithms were followed during the patient's care in the ICU Please note that these policies, procedures and recommendations changed on a rapid basis. Subjective Date of service: 07/17/20 Principal diagnosis: ARF; Septic Shock; COVID-19 PNA; Atrial fibrillation; Obesity Interval history: Patient is seen today for: Ac hypoxemic respiratory failure; COVID-19; Severe Se psis with shock; Zackery. pneumonia; GIRISH; Elevated liver enzymes; Obesity Seen and examined at bedside; 24hour events reviewed; nursing and respiratory care staff consulted; no adverse overnight events reported to me; resting in bed; remains on MVS; trialysis catheter malfunction and no central access; AMS is persistent; s/p HDUF yesterday; remnains on vasopressors; G.I. bleeding improving Objective Vital Signs - 12hr 07/16/20 07/16/20 07/16/20 23:30 23:31 23:45 Temperature Pulse Rate 119 H 115 H 115 H Respiratory 17 16 12 Rate Blood Pressure 115/61 115/61 107/62 O2 Sat by Pulse 96 96 95 Oximetry 07/17/20 07/17/20 07/17/20 00:00 00:15 00:30 Temperature 98.4 F Pulse Rate 116 H 110 H 116 H Respiratory 15 15 13 Rate Blood Pressure 107/61 109/61 109/56 O2 Sat by Pulse 96 96 96 Oximetry 07/17/20 07/17/20 07/17/20 00:45 01:00 01:15 Temperature Pulse Rate 112 H 116 H 115 H Respiratory 16 19 19 Rate Blood Pressure 115/59 118/62 98/63 O2 Sat by Pulse 97 98 98 Oximetry 07/17/20 07/17/20 07/17/20 01:30 01:45 02:00 Temperature Pulse Rate 97 H 104 H 109 H Respiratory 14 14 26 H Rate Blood Pressure 106/63 122/57 123/66 O2 Sat by Pulse 95 97 98 Oximetry 07/17/20 07/17/20 07/17/20 02:15 02:30 02:45 Temperature Pulse Rate 116 H 116 H 103 H Respiratory 17 21 15 Rate Blood Pressure 117/67 115/67 121/68 O2 Sat by Pulse 98 96 99 Oximetry 07/17/20 07/17/20 07/17/20 03:01 03:15 03:30 Temperature Pulse Rate 124 H 118 H 116 H Respiratory 22 35 H 18 Rate Blood Pressure 121/68 181/70 147/77 O2 Sat by Pulse 94 85 92 Oximetry 07/17/20 07/17/20 07/17/20 03:38 03:45 04:00 Temperature 98.2 F Pulse Rate 122 H 119 H 120 H Respiratory 23 17 Rate Blood Pressure 147/77 147/77 103/51 O2 Sat by Pulse 90 97 96 Oximetry 07/17/20 07/17/20 07/17/20 04:15 04:30 04:45 Temperature Pulse Rate 124 H 118 H 118 H Respiratory 16 13 11 L Rate Blood Pressure 96/50 101/54 94/51 O2 Sat by Pulse 96 96 98 Oximetry 07/17/20 07/17/20 07/17/20 05:00 05:15 05:30 Temperature Pulse Rate 115 H 118 H 115 H Respiratory 25 H 32 H 28 H Rate Blood Pressure 95/65 101/54 129/57 O2 Sat by Pulse 100 97 97 Oximetry 07/17/20 07/17/20 07/17/20 05:45 06:00 06:15 Temperature Pulse Rate 123 H 117 H 119 H Respiratory 33 H 33 H 30 H Rate Blood Pressure 129/57 103/55 94/48 O2 Sat by Pulse 92 95 95 Oximetry 07/17/20 07/17/20 07/17/20 06:30 06:45 07:55 Temperature Pulse Rate 117 H 111 H 124 H Respiratory 27 H 25 H Rate Blood Pressure 91/51 92/48 88/43 O2 Sat by Pulse 94 97 98 Oximetry Constitutional: appears uncomfortable, other (morbidly obese, atraumatic, normocephalic, mild resp distress, orally intubated) Eyes: non-icteric ENT: oropharynx dry, other (ETT 24 cm TROY + blood crusted lips) Neck: supple, no lymphadenopathy, other (Large , short neck) Effort: mildly labored Ascultation: Bilateral: diminished breath sounds, rhonchi (scant) Percussion: Bilateral: not dull Cardiovascular: irregular rhythm, other (S1,S2) Gastrointestinal: normoactive bowel sounds, soft, non-tender, non-distended (protuberant), other (lizeth-rectal tube slow oozing) Integumentary: rash, other (Femoral CVC, Newell catheter) Extremities: pink and warm, pulses normal, no ischemia or petechiae, edema (trace to 1+) Neurologic: non-focal exam (grossly), pupils equal and round, CN II-XII normal, other (unable to assess, sedated) Psychiatric: other (unable to assess, sedated) CBC and BMP: 07/19/20 09:15 07/19/20 09:15 ABG, PT/INR, D-dimer: ABG ABG pH 7.313 (7.320-7.450) L 07/17/20 03:27 POC ABG pCO2 50.9 mmHg (32.0-48.0) H 07/17/20 03:27 ABG pCO2 56.4 mm Hg 07/05/20 04:30 POC ABG pO2 86.1 mmHg (83-108) 07/17/20 03:27 ABG pO2 151.9 mm Hg (80.0-90.0) H 07/05/20 04:30 POC ABG HCO3 25.2 07/17/20 03:27 ABG O2 Saturation 98.7 % (95.0-99.0) 07/05/20 04:30 PT/INR, D-dimer PT 17.6 Sec. (12.2-14.9) H 07/15/20 08:21 INR 1.46 (0.87-1.13) H 07/15/20 08:21 D-Dimer 6608.00 ng/mlDDU (0-234) H 07/03/20 14:50 Abnormal lab findings: Abnormal Labs 06/17/20 06/17/20 06/17/20 12:33 12:33 12:33 WBC 19.5 H RBC 5.18 H Hgb 15.5 H Hct MCHC RDW Lymph % (Auto) 3.8 L [place] % (Auto) Lymph # (Auto) 0.7 L [place] # (Auto) Eos # (Auto) Seg Neutrophils % Seg Neuts % (Manual) 99.0 H Lymphocytes % (Manual) 1.0 L Monocytes % (Manual) Nucleated RBC % Seg Neutrophils # 18.2 H Seg Neutrophils # Man 19.3 H Lymphocytes # (Manual) 0.2 L Monocytes # (Manual) Eosinophils # (Manual) PT 16.5 H INR 1.33 H APTT D-Dimer 1025.04 H Heparin Anti-Xa Level ABG pH POC ABG pCO2 POC ABG pO2 ABG pO2 ABG HCO3 ABG Hemoglobin ABG Oxyhemoglobin ABG Sodium ABG Potassium ABG Chloride ABG Glucose Carboxyhemoglobin Sodium 130 L Potassium 3.4 L Chloride 95.0 L Carbon Dioxide BUN 21 H Creatinine Glucose 137 H POC Glucose Lactic Acid Calcium 7.9 L Phosphorus Magnesium Ferritin Direct Bilirubin AST 84 H ALT 67 H Alkaline Phosphatase Lactate Dehydrogenase 437 H Total Creatine Kinase 310 H C-Reactive Protein 27.90 H Total Protein Albumin 2.9 L Triglycerides Arterial Blood Glucose Arterial Blood Ionized Calcium Urine Creatinine Urine Chloride Vancomycin Trough Coronavirus (PCR) Crossmatch 06/17/20 06/17/20 06/17/20 12:33 12:33 14:48 WBC RBC Hgb Hct MCHC RDW Lymph % (Auto) [place] % (Auto) Lymph # (Auto) [place] # (Auto) Eos # (Auto) Seg Neutrophils % Seg Neuts % (Manual) Lymphocytes % (Manual) Monocytes % (Manual) Nucleated RBC % Seg Neutrophils # Seg Neutrophils # Man Lymphocytes # (Manual) Monocytes # (Manual) Eosinophils # (Manual) PT INR APTT D-Dimer Heparin Anti-Xa Level ABG pH POC ABG pCO2 POC ABG pO2 ABG pO2 ABG HCO3 ABG Hemoglobin ABG Oxyhemoglobin ABG Sodium ABG Potassium ABG Chloride ABG Glucose Carboxyhemoglobin Sodium Potassium Chloride Carbon Dioxide BUN Creatinine Glucose POC Glucose Lactic Acid 2.50 H* 2.20 H* Calcium Phosphorus Magnesium Ferritin 2297.0 H Direct Bilirubin AST ALT Alkaline Phosphatase Lactate Dehydrogenase Total Creatine Kinase C-Reactive Protein Total Protein Albumin Triglycerides Arterial Blood Glucose Arterial Blood Ionized Calcium Urine Creatinine Urine Chloride Vancomycin Trough Coronavirus (PCR) Crossmatch 06/17/20 06/17/20 06/17/20 14:48 14:48 14:48 WBC RBC Hgb Hct MCHC RDW Lymph % (Auto) [place] % (Auto) Lymph # (Auto) [place] # (Auto) Eos # (Auto) Seg Neutrophils % Seg Neuts % (Manual) Lymphocytes % (Manual) Monocytes % (Manual) Nucleated RBC % Seg Neutrophils # Seg Neutrophils # Man Lymphocytes # (Manual) Monocytes # (Manual) Eosinophils # (Manual) PT INR APTT D-Dimer 939.89 H Heparin Anti-Xa Level ABG pH POC ABG pCO2 POC ABG pO2 ABG pO2 ABG HCO3 ABG Hemoglobin ABG Oxyhemoglobin ABG Sodium ABG Potassium ABG Chloride ABG Glucose Carboxyhemoglobin Sodium Potassium Chloride Carbon Dioxide BUN Creatinine Glucose 141 H POC Glucose Lactic Acid Calcium Phosphorus Magnesium Ferritin > 2000.0 H Direct Bilirubin AST ALT Alkaline Phosphatase Lactate Dehydrogenase 503 H Total Creatine Kinase C-Reactive Protein 24.70 H Total Protein Albumin Triglycerides Arterial Blood Glucose Arterial Blood Ionized Calcium Urine Creatinine Urine Chloride Vancomycin Trough Coronavirus (PCR) Crossmatch 06/17/20 06/17/20 06/17/20 16:54 19:39 23:43 WBC RBC Hgb Hct MCHC RDW Lymph % (Auto) [place] % (Auto) Lymph # (Auto) [place] # (Auto) Eos # (Auto) Seg Neutrophils % Seg Neuts % (Manual) Lymphocytes % (Manual) Monocytes % (Manual) Nucleated RBC % Seg Neutrophils # Seg Neutrophils # Man Lymphocytes # (Manual) Monocytes # (Manual) Eosinophils # (Manual) PT INR APTT D-Dimer Heparin Anti-Xa Level ABG pH 7.571 H POC ABG pCO2 24.3 L POC ABG pO2 41.6 L ABG pO2 ABG HCO3 ABG Hemoglobin ABG Oxyhemoglobin 84.0 L ABG Sodium 131.0 L ABG Potassium ABG Chloride ABG Glucose 163 H Carboxyhemoglobin Sodium Potassium Chloride Carbon Dioxide BUN Creatinine Glucose POC Glucose 185 H Lactic Acid 2.10 H* Calcium Phosphorus Magnesium Ferritin Direct Bilirubin AST ALT Alkaline Phosphatase Lactate Dehydrogenase Total Creatine Kinase C-Reactive Protein Total Protein Albumin Triglycerides Arterial Blood Glucose 163 H Arterial Blood Ionized Calcium 4.4 L Urine Creatinine Urine Chloride Vancomycin Trough Coronavirus (PCR) Crossmatch 06/18/20 06/18/20 06/18/20 00:17 00:23 03:55 WBC RBC Hgb Hct MCHC RDW Lymph % (Auto) [place] % (Auto) Lymph # (Auto) [place] # (Auto) Eos # (Auto) Seg Neutrophils % Seg Neuts % (Manual) Lymphocytes % (Manual) Monocytes % (Manual) Nucleated RBC % Seg Neutrophils # Seg Neutrophils # Man Lymphocytes # (Manual) Monocytes # (Manual) Eosinophils # (Manual) PT INR APTT D-Dimer Heparin Anti-Xa Level ABG pH POC ABG pCO2 POC ABG pO2 56.5 L 48.3 L ABG pO2 ABG HCO3 ABG Hemoglobin ABG Oxyhemoglobin 86.3 L 81.7 L ABG Sodium 132.9 L 131.0 L ABG Potassium ABG Chloride ABG Glucose 189 H 161 H Carboxyhemoglobin 0.4 L Sodium Potassium Chloride Carbon Dioxide BUN Creatinine Glucose POC Glucose Lactic Acid 3.80 H* Calcium Phosphorus Magnesium Ferritin Direct Bilirubin AST ALT Alkaline Phosphatase Lactate Dehydrogenase Total Creatine Kinase C-Reactive Protein Total Protein Albumin Triglycerides Arterial Blood Glucose 189 H 161 H Arterial Blood Ionized Calcium 4.3 L 4.2 L Urine Creatinine Urine Chloride Vancomycin Trough Coronavirus (PCR) Crossmatch 06/18/20 06/18/20 06/18/20 05:39 05:39 05:39 WBC 26.2 H RBC Hgb Hct MCHC RDW Lymph % (Auto) [place] % (Auto) Lymph # (Auto) [place] # (Auto) Eos # (Auto) Seg Neutrophils % Seg Neuts % (Manual) 90.0 H Lymphocytes % (Manual) 5.0 L Monocytes % (Manual) Nucleated RBC % Seg Neutrophils # Seg Neutrophils # Man 23.6 H Lymphocytes # (Manual) Monocytes # (Manual) 1.3 H Eosinophils # (Manual) PT INR APTT D-Dimer Heparin Anti-Xa Level ABG pH POC ABG pCO2 POC ABG pO2 ABG pO2 ABG HCO3 ABG Hemoglobin ABG Oxyhemoglobin ABG Sodium ABG Potassium ABG Chloride ABG Glucose Carboxyhemoglobin Sodium 135 L Potassium Chloride 97.5 L Carbon Dioxide 21 L BUN 39 H Creatinine 1.7 H D Glucose 168 H POC Glucose Lactic Acid 3.40 H* Calcium 7.2 L Phosphorus Magnesium Ferritin Direct Bilirubin AST ALT Alkaline Phosphatase Lactate Dehydrogenase Total Creatine Kinase C-Reactive Protein Total Protein Albumin Triglycerides Arterial Blood Glucose Arterial Blood Ionized Calcium Urine Creatinine Urine Chloride Vancomycin Trough Coronavirus (PCR) Crossmatch 06/18/20 06/18/20 06/18/20 07:24 09:00 10:10 WBC RBC Hgb Hct MCHC RDW Lymph % (Auto) [place] % (Auto) Lymph # (Auto) [place] # (Auto) Eos # (Auto) Seg Neutrophils % Seg Neuts % (Manual) Lymphocytes % (Manual) Monocytes % (Manual) Nucleated RBC % Seg Neutrophils # Seg Neutrophils # Man Lymphocytes # (Manual) Monocytes # (Manual) Eosinophils # (Manual) PT INR APTT D-Dimer Heparin Anti-Xa Level ABG pH POC ABG pCO2 POC ABG pO2 ABG pO2 ABG HCO3 ABG Hemoglobin ABG Oxyhemoglobin ABG Sodium ABG Potassium ABG Chloride ABG Glucose Carboxyhemoglobin Sodium Potassium Chloride Carbon Dioxide BUN Creatinine Glucose POC Glucose Lactic Acid 2.90 H* 3.20 H* Calcium Phosphorus Magnesium Ferritin Direct Bilirubin AST ALT Alkaline Phosphatase Lactate Dehydrogenase Total Creatine Kinase C-Reactive Protein Total Protein Albumin Triglycerides Arterial Blood Glucose Arterial Blood Ionized Calcium Urine Creatinine Urine Chloride Vancomycin Trough Coronavirus (PCR) Positive A Crossmatch 06/18/20 06/18/20 06/18/20 11:58 14:43 15:00 WBC RBC Hgb Hct MCHC RDW Lymph % (Auto) [place] % (Auto) Lymph # (Auto) [place] # (Auto) Eos # (Auto) Seg Neutrophils % Seg Neuts % (Manual) Lymphocytes % (Manual) Monocytes % (Manual) Nucleated RBC % Seg Neutrophils # Seg Neutrophils # Man Lymphocytes # (Manual) Monocytes # (Manual) Eosinophils # (Manual) PT INR APTT D-Dimer Heparin Anti-Xa Level ABG pH 7.303 L POC ABG pCO2 POC ABG pO2 82.3 L ABG pO2 ABG HCO3 ABG Hemoglobin ABG Oxyhemoglobin ABG Sodium 135.3 L ABG Potassium ABG Chloride ABG Glucose 215 H Carboxyhemoglobin 0.3 L Sodium Potassium Chloride Carbon Dioxide BUN Creatinine Glucose POC Glucose 209 H Lactic Acid Calcium Phosphorus Magnesium Ferritin Direct Bilirubin AST ALT Alkaline Phosphatase Lactate Dehydrogenase Total Creatine Kinase C-Reactive Protein Total Protein Albumin Triglycerides Arterial Blood Glucose 215 H Arterial Blood Ionized Calcium 4.2 L Urine Creatinine 192.4 H Urine Chloride 31.1 L Vancomycin Trough Coronavirus (PCR) Crossmatch 06/18/20 06/18/20 06/18/20 17:16 19:44 20:33 WBC RBC Hgb Hct MCHC RDW Lymph % (Auto) [place] % (Auto) Lymph # (Auto) [place] # (Auto) Eos # (Auto) Seg Neutrophils % Seg Neuts % (Manual) Lymphocytes % (Manual) Monocytes % (Manual) Nucleated RBC % Seg Neutrophils # Seg Neutrophils # Man Lymphocytes # (Manual) Monocytes # (Manual) Eosinophils # (Manual) PT INR APTT D-Dimer Heparin Anti-Xa Level ABG pH POC ABG pCO2 POC ABG pO2 ABG pO2 ABG HCO3 ABG Hemoglobin ABG Oxyhemoglobin ABG Sodium ABG Potassium ABG Chloride ABG Glucose Carboxyhemoglobin Sodium Potassium Chloride Carbon Dioxide BUN Creatinine Glucose POC Glucose 182 H Lactic Acid 3.00 H* Calcium Phosphorus Magnesium 2.70 H Ferritin Direct Bilirubin AST ALT Alkaline Phosphatase Lactate Dehydrogenase Total Creatine Kinase C-Reactive Protein Total Protein Albumin Triglycerides Arterial Blood Glucose Arterial Blood Ionized Calcium Urine Creatinine Urine Chloride Vancomycin Trough Coronavirus (PCR) Crossmatch 06/18/20 06/19/20 06/19/20 23:43 04:00 04:00 WBC 31.6 H RBC Hgb Hct MCHC RDW Lymph % (Auto) [place] % (Auto) Lymph # (Auto) [place] # (Auto) Eos # (Auto) Seg Neutrophils % Seg Neuts % (Manual) 98.0 H Lymphocytes % (Manual) 0.5 L Monocytes % (Manual) Nucleated RBC % Seg Neutrophils # Seg Neutrophils # Man 31.0 H Lymphocytes # (Manual) 0.2 L Monocytes # (Manual) Eosinophils # (Manual) PT INR APTT D-Dimer Heparin Anti-Xa Level ABG pH POC ABG pCO2 POC ABG pO2 ABG pO2 ABG HCO3 ABG Hemoglobin ABG Oxyhemoglobin ABG Sodium ABG Potassium ABG Chloride ABG Glucose Carboxyhemoglobin Sodium Potassium Chloride Carbon Dioxide BUN 56 H Creatinine 1.6 H Glucose 176 H POC Glucose 149 H Lactic Acid Calcium 7.0 L Phosphorus Magnesium Ferritin Direct Bilirubin AST 244 H ALT 159 H Alkaline Phosphatase Lactate Dehydrogenase Total Creatine Kinase C-Reactive Protein Total Protein 4.9 L D Albumin 2.5 L Triglycerides Arterial Blood Glucose Arterial Blood Ionized Calcium Urine Creatinine Urine Chloride Vancomycin Trough Coronavirus (PCR) Crossmatch 06/19/20 06/19/20 06/19/20 04:00 05:44 11:42 WBC RBC Hgb Hct MCHC RDW Lymph % (Auto) [place] % (Auto) Lymph # (Auto) [place] # (Auto) Eos # (Auto) Seg Neutrophils % Seg Neuts % (Manual) Lymphocytes % (Manual) Monocytes % (Manual) Nucleated RBC % Seg Neutrophils # Seg Neutrophils # Man Lymphocytes # (Manual) Monocytes # (Manual) Eosinophils # (Manual) PT INR APTT D-Dimer Heparin Anti-Xa Level ABG pH 7.265 L POC ABG pCO2 51.8 H POC ABG pO2 65.1 L ABG pO2 ABG HCO3 ABG Hemoglobin ABG Oxyhemoglobin ABG Sodium ABG Potassium ABG Chloride ABG Glucose 184 H Carboxyhemoglobin Sodium Potassium Chloride Carbon Dioxide BUN Creatinine Glucose POC Glucose 156 H 191 H Lactic Acid Calcium Phosphorus Magnesium Ferritin Direct Bilirubin AST ALT Alkaline Phosphatase Lactate Dehydrogenase Total Creatine Kinase C-Reactive Protein Total Protein Albumin Triglycerides Arterial Blood Glucose 184 H Arterial Blood Ionized Calcium 4.3 L Urine Creatinine Urine Chloride Vancomycin Trough Coronavirus (PCR) Crossmatch 06/19/20 06/19/20 06/19/20 12:30 17:16 18:36 WBC RBC Hgb Hct MCHC RDW Lymph % (Auto) [place] % (Auto) Lymph # (Auto) [place] # (Auto) Eos # (Auto) Seg Neutrophils % Seg Neuts % (Manual) Lymphocytes % (Manual) Monocytes % (Manual) Nucleated RBC % Seg Neutrophils # Seg Neutrophils # Man Lymphocytes # (Manual) Monocytes # (Manual) Eosinophils # (Manual) PT 16.4 H INR 1.32 H APTT D-Dimer Heparin Anti-Xa Level ABG pH 7.088 L POC ABG pCO2 78.1 H POC ABG pO2 208.3 H ABG pO2 ABG HCO3 ABG Hemoglobin ABG Oxyhemoglobin 98.3 H ABG Sodium ABG Potassium 5.0 H ABG Chloride ABG Glucose 182 H Carboxyhemoglobin 0.4 L Sodium Potassium Chloride Carbon Dioxide BUN Creatinine Glucose POC Glucose 154 H Lactic Acid Calcium Phosphorus Magnesium Ferritin Direct Bilirubin AST ALT Alkaline Phosphatase Lactate Dehydrogenase Total Creatine Kinase C-Reactive Protein Total Protein Albumin Triglycerides Arterial Blood Glucose 182 H Arterial Blood Ionized Calcium 4.3 L Urine Creatinine Urine Chloride Vancomycin Trough Coronavirus (PCR) Crossmatch 06/19/20 06/20/20 06/20/20 23:32 03:00 05:19 WBC RBC Hgb Hct MCHC RDW Lymph % (Auto) [place] % (Auto) Lymph # (Auto) [place] # (Auto) Eos # (Auto) Seg Neutrophils % Seg Neuts % (Manual) Lymphocytes % (Manual) Monocytes % (Manual) Nucleated RBC % Seg Neutrophils # Seg Neutrophils # Man Lymphocytes # (Manual) Monocytes # (Manual) Eosinophils # (Manual) PT INR APTT D-Dimer Heparin Anti-Xa Level 0.77 H ABG pH POC ABG pCO2 POC ABG pO2 ABG pO2 ABG HCO3 ABG Hemoglobin ABG Oxyhemoglobin ABG Sodium ABG Potassium ABG Chloride ABG Glucose Carboxyhemoglobin Sodium Potassium Chloride Carbon Dioxide BUN Creatinine Glucose POC Glucose 201 H 190 H Lactic Acid Calcium Phosphorus Magnesium Ferritin Direct Bilirubin AST ALT Alkaline Phosphatase Lactate Dehydrogenase Total Creatine Kinase C-Reactive Protein Total Protein Albumin Triglycerides Arterial Blood Glucose Arterial Blood Ionized Calcium Urine Creatinine Urine Chloride Vancomycin Trough Coronavirus (PCR) Crossmatch 06/20/20 06/20/20 06/20/20 08:25 08:25 11:36 WBC RBC Hgb Hct MCHC RDW Lymph % (Auto) [place] % (Auto) Lymph # (Auto) [place] # (Auto) Eos # (Auto) Seg Neutrophils % Seg Neuts % (Manual) Lymphocytes % (Manual) Monocytes % (Manual) Nucleated RBC % Seg Neutrophils # Seg Neutrophils # Man Lymphocytes # (Manual) Monocytes # (Manual) Eosinophils # (Manual) PT INR APTT D-Dimer Heparin Anti-Xa Level ABG pH POC ABG pCO2 POC ABG pO2 ABG pO2 ABG HCO3 ABG Hemoglobin ABG Oxyhemoglobin ABG Sodium ABG Potassium ABG Chloride ABG Glucose Carboxyhemoglobin Sodium 135 L Potassium 5.4 H Chloride 109.2 H Carbon Dioxide 19 L BUN 68 H Creatinine 2.5 H D Glucose 201 H POC Glucose 184 H Lactic Acid Calcium 5.5 L* D Phosphorus Magnesium Ferritin Direct Bilirubin AST 123 H ALT 86 H Alkaline Phosphatase Lactate Dehydrogenase Total Creatine Kinase C-Reactive Protein Total Protein 4.6 L Albumin 1.5 L Triglycerides Arterial Blood Glucose Arterial Blood Ionized Calcium Urine Creatinine Urine Chloride Vancomycin Trough 22.7 H Coronavirus (PCR) Crossmatch 06/20/20 06/20/20 06/20/20 11:40 17:28 20:00 WBC RBC Hgb Hct MCHC RDW Lymph % (Auto) [place] % (Auto) Lymph # (Auto) [place] # (Auto) Eos # (Auto) Seg Neutrophils % Seg Neuts % (Manual) Lymphocytes % (Manual) Monocytes % (Manual) Nucleated RBC % Seg Neutrophils # Seg Neutrophils # Man Lymphocytes # (Manual) Monocytes # (Manual) Eosinophils # (Manual) PT INR APTT D-Dimer Heparin Anti-Xa Level 0.89 H ABG pH 7.099 L POC ABG pCO2 61.1 H POC ABG pO2 ABG pO2 ABG HCO3 ABG Hemoglobin ABG Oxyhemoglobin ABG Sodium ABG Potassium 5.0 H ABG Chloride 111.0 H ABG Glucose 200 H Carboxyhemoglobin 0.4 L Sodium Potassium Chloride Carbon Dioxide BUN Creatinine Glucose POC Glucose 165 H Lactic Acid Calcium Phosphorus Magnesium Ferritin Direct Bilirubin AST ALT Alkaline Phosphatase Lactate Dehydrogenase Total Creatine Kinase C-Reactive Protein Total Protein Albumin Triglycerides Arterial Blood Glucose 200 H Arterial Blood Ionized Calcium 4.2 L Urine Creatinine Urine Chloride Vancomycin Trough Coronavirus (PCR) Crossmatch 06/20/20 06/21/20 06/21/20 23:29 05:00 05:20 WBC RBC Hgb Hct MCHC RDW Lymph % (Auto) [place] % (Auto) Lymph # (Auto) [place] # (Auto) Eos # (Auto) Seg Neutrophils % Seg Neuts % (Manual) Lymphocytes % (Manual) Monocytes % (Manual) Nucleated RBC % Seg Neutrophils # Seg Neutrophils # Man Lymphocytes # (Manual) Monocytes # (Manual) Eosinophils # (Manual) PT INR APTT D-Dimer Heparin Anti-Xa Level ABG pH POC ABG pCO2 POC ABG pO2 ABG pO2 ABG HCO3 ABG Hemoglobin ABG Oxyhemoglobin ABG Sodium ABG Potassium ABG Chloride ABG Glucose Carboxyhemoglobin Sodium Potassium Chloride 112.0 H Carbon Dioxide 20 L BUN 92 H Creatinine 3.9 H D Glucose 214 H POC Glucose 145 H 191 H Lactic Acid Calcium 6.5 L D Phosphorus Magnesium Ferritin Direct Bilirubin AST 98 H ALT 84 H Alkaline Phosphatase Lactate Dehydrogenase Total Creatine Kinase C-Reactive Protein Total Protein 4.6 L Albumin 2.1 L Triglycerides 180 H Arterial Blood Glucose Arterial Blood Ionized Calcium Urine Creatinine Urine Chloride Vancomycin Trough Coronavirus (PCR) Crossmatch 06/21/20 06/21/20 06/21/20 08:56 11:12 12:43 WBC RBC Hgb Hct MCHC RDW Lymph % (Auto) [place] % (Auto) Lymph # (Auto) [place] # (Auto) Eos # (Auto) Seg Neutrophils % Seg Neuts % (Manual) Lymphocytes % (Manual) Monocytes % (Manual) Nucleated RBC % Seg Neutrophils # Seg Neutrophils # Man Lymphocytes # (Manual) Monocytes # (Manual) Eosinophils # (Manual) PT INR APTT D-Dimer Heparin Anti-Xa Level 0.28 L ABG pH 7.184 L POC ABG pCO2 48.3 H POC ABG pO2 172.1 H ABG pO2 ABG HCO3 ABG Hemoglobin ABG Oxyhemoglobin 98.7 H ABG Sodium ABG Potassium 4.9 H ABG Chloride 112.0 H ABG Glucose 196 H Carboxyhemoglobin 0.2 L Sodium Potassium Chloride Carbon Dioxide BUN Creatinine Glucose POC Glucose 177 H Lactic Acid Calcium Phosphorus Magnesium Ferritin Direct Bilirubin AST ALT Alkaline Phosphatase Lactate Dehydrogenase Total Creatine Kinase C-Reactive Protein Total Protein Albumin Triglycerides Arterial Blood Glucose 196 H Arterial Blood Ionized Calcium 4.1 L Urine Creatinine Urine Chloride Vancomycin Trough Coronavirus (PCR) Crossmatch 06/21/20 06/21/20 06/22/20 16:31 Unknown 00:12 WBC RBC Hgb Hct MCHC RDW Lymph % (Auto) [place] % (Auto) Lymph # (Auto) [place] # (Auto) Eos # (Auto) Seg Neutrophils % Seg Neuts % (Manual) Lymphocytes % (Manual) Monocytes % (Manual) Nucleated RBC % Seg Neutrophils # Seg Neutrophils # Man Lymphocytes # (Manual) Monocytes # (Manual) Eosinophils # (Manual) PT INR APTT D-Dimer Heparin Anti-Xa Level 0.78 H ABG pH POC ABG pCO2 POC ABG pO2 ABG pO2 ABG HCO3 ABG Hemoglobin ABG Oxyhemoglobin ABG Sodium ABG Potassium ABG Chloride ABG Glucose Carboxyhemoglobin Sodium Potassium Chloride Carbon Dioxide BUN Creatinine Glucose POC Glucose 150 H 173 H Lactic Acid Calcium Phosphorus Magnesium Ferritin Direct Bilirubin AST ALT Alkaline Phosphatase Lactate Dehydrogenase Total Creatine Kinase C-Reactive Protein Total Protein Albumin Triglycerides Arterial Blood Glucose Arterial Blood Ionized Calcium Urine Creatinine Urine Chloride Vancomycin Trough Coronavirus (PCR) Crossmatch 06/22/20 06/22/20 06/22/20 04:00 05:04 05:30 WBC 33.9 H RBC Hgb 11.7 L Hct 35.2 L MCHC RDW 15.8 H Lymph % (Auto) [place] % (Auto) Lymph # (Auto) [place] # (Auto) Eos # (Auto) Seg Neutrophils % Seg Neuts % (Manual) 93.0 H Lymphocytes % (Manual) 5.0 L Monocytes % (Manual) Nucleated RBC % Seg Neutrophils # Seg Neutrophils # Man 31.5 H Lymphocytes # (Manual) Monocytes # (Manual) Eosinophils # (Manual) PT INR APTT D-Dimer Heparin Anti-Xa Level ABG pH 7.169 L POC ABG pCO2 POC ABG pO2 ABG pO2 ABG HCO3 ABG Hemoglobin ABG Oxyhemoglobin ABG Sodium ABG Potassium 5.1 H ABG Chloride 112.0 H ABG Glucose 186 H Carboxyhemoglobin 0.3 L Sodium Potassium Chloride Carbon Dioxide BUN Creatinine Glucose POC Glucose 161 H Lactic Acid Calcium Phosphorus Magnesium Ferritin Direct Bilirubin AST ALT Alkaline Phosphatase Lactate Dehydrogenase Total Creatine Kinase C-Reactive Protein Total Protein Albumin Triglycerides Arterial Blood Glucose 186 H Arterial Blood Ionized Calcium 4.1 L Urine Creatinine Urine Chloride Vancomycin Trough Coronavirus (PCR) Crossmatch 06/22/20 06/22/20 06/22/20 05:30 11:39 13:27 WBC RBC Hgb Hct MCHC RDW Lymph % (Auto) [place] % (Auto) Lymph # (Auto) [place] # (Auto) Eos # (Auto) Seg Neutrophils % Seg Neuts % (Manual) Lymphocytes % (Manual) Monocytes % (Manual) Nucleated RBC % Seg Neutrophils # Seg Neutrophils # Man Lymphocytes # (Manual) Monocytes # (Manual) Eosinophils # (Manual) PT INR APTT D-Dimer Heparin Anti-Xa Level ABG pH POC ABG pCO2 POC ABG pO2 ABG pO2 ABG HCO3 ABG Hemoglobin ABG Oxyhemoglobin ABG Sodium ABG Potassium ABG Chloride ABG Glucose Carboxyhemoglobin Sodium Potassium 5.7 H Chloride 111.3 H Carbon Dioxide 18 L BUN 112 H Creatinine 5.0 H Glucose 173 H POC Glucose 172 H 176 H Lactic Acid Calcium 6.7 L Phosphorus Magnesium Ferritin Direct Bilirubin AST ALT Alkaline Phosphatase Lactate Dehydrogenase Total Creatine Kinase C-Reactive Protein Total Protein Albumin Triglycerides Arterial Blood Glucose Arterial Blood Ionized Calcium Urine Creatinine Urine Chloride Vancomycin Trough Coronavirus (PCR) Crossmatch 06/22/20 06/22/20 06/22/20 14:37 17:00 17:40 WBC RBC Hgb Hct MCHC RDW Lymph % (Auto) [place] % (Auto) Lymph # (Auto) [place] # (Auto) Eos # (Auto) Seg Neutrophils % Seg Neuts % (Manual) Lymphocytes % (Manual) Monocytes % (Manual) Nucleated RBC % Seg Neutrophils # Seg Neutrophils # Man Lymphocytes # (Manual) Monocytes # (Manual) Eosinophils # (Manual) PT INR APTT D-Dimer Heparin Anti-Xa Level 1.32 H ABG pH POC ABG pCO2 POC ABG pO2 ABG pO2 ABG HCO3 ABG Hemoglobin ABG Oxyhemoglobin ABG Sodium ABG Potassium ABG Chloride ABG Glucose Carboxyhemoglobin Sodium Potassium Chloride Carbon Dioxide BUN Creatinine Glucose POC Glucose 171 H Lactic Acid Calcium Phosphorus Magnesium Ferritin Direct Bilirubin AST ALT Alkaline Phosphatase Lactate Dehydrogenase Total Creatine Kinase C-Reactive Protein 5.30 H Total Protein Albumin Triglycerides Arterial Blood Glucose Arterial Blood Ionized Calcium Urine Creatinine Urine Chloride Vancomycin Trough Coronavirus (PCR) Crossmatch 06/22/20 06/23/20 06/23/20 23:36 02:13 02:41 WBC RBC Hgb Hct MCHC RDW Lymph % (Auto) [place] % (Auto) Lymph # (Auto) [place] # (Auto) Eos # (Auto) Seg Neutrophils % Seg Neuts % (Manual) Lymphocytes % (Manual) Monocytes % (Manual) Nucleated RBC % Seg Neutrophils # Seg Neutrophils # Man Lymphocytes # (Manual) Monocytes # (Manual) Eosinophils # (Manual) PT INR APTT D-Dimer Heparin Anti-Xa Level 0.21 L ABG pH 7.318 L POC ABG pCO2 POC ABG pO2 157.5 H ABG pO2 ABG HCO3 ABG Hemoglobin ABG Oxyhemoglobin ABG Sodium 135.6 L ABG Potassium 4.6 H ABG Chloride 110.0 H ABG Glucose 169 H Carboxyhemoglobin Sodium Potassium Chloride Carbon Dioxide BUN Creatinine Glucose POC Glucose 155 H Lactic Acid Calcium Phosphorus Magnesium Ferritin Direct Bilirubin AST ALT Alkaline Phosphatase Lactate Dehydrogenase Total Creatine Kinase C-Reactive Protein Total Protein Albumin Triglycerides Arterial Blood Glucose 169 H Arterial Blood Ionized Calcium Urine Creatinine Urine Chloride Vancomycin Trough Coronavirus (PCR) Crossmatch 06/23/20 06/23/20 06/23/20 04:00 04:00 05:24 WBC 27.4 H RBC Hgb 11.3 L Hct 33.8 L MCHC RDW Lymph % (Auto) [place] % (Auto) Lymph # (Auto) [place] # (Auto) Eos # (Auto) Seg Neutrophils % Seg Neuts % (Manual) 93.0 H Lymphocytes % (Manual) 1.0 L Monocytes % (Manual) Nucleated RBC % 1.0 H Seg Neutrophils # Seg Neutrophils # Man 25.5 H Lymphocytes # (Manual) 0.3 L Monocytes # (Manual) 1.1 H Eosinophils # (Manual) PT INR APTT D-Dimer Heparin Anti-Xa Level ABG pH POC ABG pCO2 POC ABG pO2 ABG pO2 ABG HCO3 ABG Hemoglobin ABG Oxyhemoglobin ABG Sodium ABG Potassium ABG Chloride ABG Glucose Carboxyhemoglobin Sodium Potassium Chloride 107.6 H Carbon Dioxide 20 L BUN 100 H Creatinine 4.7 H Glucose 168 H POC Glucose 151 H Lactic Acid Calcium Phosphorus Magnesium Ferritin Direct Bilirubin AST ALT Alkaline Phosphatase Lactate Dehydrogenase Total Creatine Kinase C-Reactive Protein Total Protein Albumin Triglycerides Arterial Blood Glucose Arterial Blood Ionized Calcium Urine Creatinine Urine Chloride Vancomycin Trough Coronavirus (PCR) Crossmatch 06/23/20 06/23/20 06/23/20 11:30 17:18 23:50 WBC RBC Hgb Hct MCHC RDW Lymph % (Auto) [place] % (Auto) Lymph # (Auto) [place] # (Auto) Eos # (Auto) Seg Neutrophils % Seg Neuts % (Manual) Lymphocytes % (Manual) Monocytes % (Manual) Nucleated RBC % Seg Neutrophils # Seg Neutrophils # Man Lymphocytes # (Manual) Monocytes # (Manual) Eosinophils # (Manual) PT INR APTT D-Dimer Heparin Anti-Xa Level ABG pH POC ABG pCO2 POC ABG pO2 ABG pO2 ABG HCO3 ABG Hemoglobin ABG Oxyhemoglobin ABG Sodium ABG Potassium ABG Chloride ABG Glucose Carboxyhemoglobin Sodium Potassium Chloride Carbon Dioxide BUN Creatinine Glucose POC Glucose 157 H 156 H 162 H Lactic Acid Calcium Phosphorus Magnesium Ferritin Direct Bilirubin AST ALT Alkaline Phosphatase Lactate Dehydrogenase Total Creatine Kinase C-Reactive Protein Total Protein Albumin Triglycerides Arterial Blood Glucose Arterial Blood Ionized Calcium Urine Creatinine Urine Chloride Vancomycin Trough Coronavirus (PCR) Crossmatch 06/24/20 06/24/20 06/24/20 04:41 05:57 06:30 WBC 34.3 H RBC Hgb 10.9 L Hct 32.6 L MCHC RDW Lymph % (Auto) 2.0 L [place] % (Auto) Lymph # (Auto) 0.7 L [place] # (Auto) 1.2 H Eos # (Auto) Seg Neutrophils % Seg Neuts % (Manual) 96.0 H Lymphocytes % (Manual) 3.0 L Monocytes % (Manual) Nucleated RBC % Seg Neutrophils # 32.3 H Seg Neutrophils # Man 32.9 H Lymphocytes # (Manual) 1.0 L Monocytes # (Manual) Eosinophils # (Manual) PT INR APTT D-Dimer Heparin Anti-Xa Level ABG pH POC ABG pCO2 POC ABG pO2 71.1 L ABG pO2 ABG HCO3 ABG Hemoglobin ABG Oxyhemoglobin 92.4 L ABG Sodium 115.6 L ABG Potassium ABG Chloride ABG Glucose 159 H Carboxyhemoglobin Sodium Potassium Chloride Carbon Dioxide BUN Creatinine Glucose POC Glucose 143 H Lactic Acid Calcium Phosphorus Magnesium Ferritin Direct Bilirubin AST ALT Alkaline Phosphatase Lactate Dehydrogenase Total Creatine Kinase C-Reactive Protein Total Protein Albumin Triglycerides Arterial Blood Glucose 159 H Arterial Blood Ionized Calcium 4.2 L Urine Creatinine Urine Chloride Vancomycin Trough Coronavirus (PCR) Crossmatch 06/24/20 06/24/20 06/24/20 07:03 09:37 11:56 WBC RBC Hgb Hct MCHC RDW Lymph % (Auto) [place] % (Auto) Lymph # (Auto) [place] # (Auto) Eos # (Auto) Seg Neutrophils % Seg Neuts % (Manual) Lymphocytes % (Manual) Monocytes % (Manual) Nucleated RBC % Seg Neutrophils # Seg Neutrophils # Man Lymphocytes # (Manual) Monocytes # (Manual) Eosinophils # (Manual) PT INR APTT D-Dimer Heparin Anti-Xa Level 0.26 L ABG pH POC ABG pCO2 POC ABG pO2 ABG pO2 ABG HCO3 ABG Hemoglobin ABG Oxyhemoglobin ABG Sodium ABG Potassium ABG Chloride ABG Glucose Carboxyhemoglobin Sodium Potassium 5.1 H Chloride Carbon Dioxide BUN 103 H Creatinine 5.0 H Glucose 163 H POC Glucose 149 H Lactic Acid Calcium 7.6 L Phosphorus Magnesium Ferritin Direct Bilirubin AST ALT Alkaline Phosphatase Lactate Dehydrogenase Total Creatine Kinase C-Reactive Protein Total Protein Albumin Triglycerides Arterial Blood Glucose Arterial Blood Ionized Calcium Urine Creatinine Urine Chloride Vancomycin Trough Coronavirus (PCR) Crossmatch 06/24/20 06/25/20 06/25/20 18:09 01:05 03:00 WBC RBC Hgb 10.6 L Hct 32.1 L MCHC RDW Lymph % (Auto) [place] % (Auto) Lymph # (Auto) [place] # (Auto) Eos # (Auto) Seg Neutrophils % Seg Neuts % (Manual) Lymphocytes % (Manual) Monocytes % (Manual) Nucleated RBC % Seg Neutrophils # Seg Neutrophils # Man Lymphocytes # (Manual) Monocytes # (Manual) Eosinophils # (Manual) PT INR APTT D-Dimer Heparin Anti-Xa Level ABG pH POC ABG pCO2 POC ABG pO2 ABG pO2 ABG HCO3 ABG Hemoglobin ABG Oxyhemoglobin ABG Sodium ABG Potassium ABG Chloride ABG Glucose Carboxyhemoglobin Sodium Potassium Chloride Carbon Dioxide BUN Creatinine Glucose POC Glucose 141 H 137 H Lactic Acid Calcium Phosphorus Magnesium Ferritin Direct Bilirubin AST ALT Alkaline Phosphatase Lactate Dehydrogenase Total Creatine Kinase C-Reactive Protein Total Protein Albumin Triglycerides Arterial Blood Glucose Arterial Blood Ionized Calcium Urine Creatinine Urine Chloride Vancomycin Trough Coronavirus (PCR) Crossmatch 06/25/20 06/25/20 06/25/20 03:48 05:17 12:08 WBC RBC Hgb Hct MCHC RDW Lymph % (Auto) [place] % (Auto) Lymph # (Auto) [place] # (Auto) Eos # (Auto) Seg Neutrophils % Seg Neuts % (Manual) Lymphocytes % (Manual) Monocytes % (Manual) Nucleated RBC % Seg Neutrophils # Seg Neutrophils # Man Lymphocytes # (Manual) Monocytes # (Manual) Eosinophils # (Manual) PT INR APTT D-Dimer Heparin Anti-Xa Level ABG pH POC ABG pCO2 29.4 L POC ABG pO2 67.1 L ABG pO2 ABG HCO3 ABG Hemoglobin 11.5 L ABG Oxyhemoglobin ABG Sodium 124.1 L ABG Potassium 4.6 H ABG Chloride ABG Glucose 159 H Carboxyhemoglobin Sodium Potassium Chloride Carbon Dioxide BUN Creatinine Glucose POC Glucose 149 H 150 H Lactic Acid Calcium Phosphorus Magnesium Ferritin Direct Bilirubin AST ALT Alkaline Phosphatase Lactate Dehydrogenase Total Creatine Kinase C-Reactive Protein Total Protein Albumin Triglycerides Arterial Blood Glucose 159 H Arterial Blood Ionized Calcium 4.2 L Urine Creatinine Urine Chloride Vancomycin Trough Coronavirus (PCR) Crossmatch 06/25/20 06/25/20 06/25/20 16:27 16:35 17:27 WBC RBC Hgb Hct MCHC RDW Lymph % (Auto) [place] % (Auto) Lymph # (Auto) [place] # (Auto) Eos # (Auto) Seg Neutrophils % Seg Neuts % (Manual) Lymphocytes % (Manual) Monocytes % (Manual) Nucleated RBC % Seg Neutrophils # Seg Neutrophils # Man Lymphocytes # (Manual) Monocytes # (Manual) Eosinophils # (Manual) PT INR APTT D-Dimer Heparin Anti-Xa Level < 0.10 L ABG pH POC ABG pCO2 POC ABG pO2 ABG pO2 ABG HCO3 ABG Hemoglobin ABG Oxyhemoglobin ABG Sodium ABG Potassium ABG Chloride ABG Glucose Carboxyhemoglobin Sodium Potassium Chloride Carbon Dioxide BUN Creatinine Glucose POC Glucose 143 H 156 H Lactic Acid Calcium Phosphorus Magnesium Ferritin Direct Bilirubin AST ALT Alkaline Phosphatase Lactate Dehydrogenase Total Creatine Kinase C-Reactive Protein Total Protein Albumin Triglycerides Arterial Blood Glucose Arterial Blood Ionized Calcium Urine Creatinine Urine Chloride Vancomycin Trough Coronavirus (PCR) Crossmatch 06/25/20 06/25/20 06/25/20 20:00 20:55 23:10 WBC 32.7 H RBC 3.06 L Hgb 9.0 L 9.5 L Hct 26.7 L 28.6 L MCHC RDW Lymph % (Auto) [place] % (Auto) Lymph # (Auto) [place] # (Auto) Eos # (Auto) Seg Neutrophils % Seg Neuts % (Manual) Lymphocytes % (Manual) 2.0 L Monocytes % (Manual) Nucleated RBC % Seg Neutrophils # Seg Neutrophils # Man 30.7 H Lymphocytes # (Manual) 0.7 L Monocytes # (Manual) 1.3 H Eosinophils # (Manual) PT 17.7 H INR 1.47 H APTT 65.8 H* D-Dimer Heparin Anti-Xa Level ABG pH POC ABG pCO2 POC ABG pO2 ABG pO2 ABG HCO3 ABG Hemoglobin ABG Oxyhemoglobin ABG Sodium ABG Potassium ABG Chloride ABG Glucose Carboxyhemoglobin Sodium Potassium Chloride Carbon Dioxide BUN Creatinine Glucose POC Glucose Lactic Acid Calcium Phosphorus Magnesium Ferritin Direct Bilirubin AST ALT Alkaline Phosphatase Lactate Dehydrogenase Total Creatine Kinase C-Reactive Protein Total Protein Albumin Triglycerides Arterial Blood Glucose Arterial Blood Ionized Calcium Urine Creatinine Urine Chloride Vancomycin Trough Coronavirus (PCR) Crossmatch 06/25/20 06/26/20 06/26/20 23:14 01:30 03:25 WBC RBC Hgb Hct MCHC RDW Lymph % (Auto) [place] % (Auto) Lymph # (Auto) [place] # (Auto) Eos # (Auto) Seg Neutrophils % Seg Neuts % (Manual) Lymphocytes % (Manual) Monocytes % (Manual) Nucleated RBC % Seg Neutrophils # Seg Neutrophils # Man Lymphocytes # (Manual) Monocytes # (Manual) Eosinophils # (Manual) PT INR APTT D-Dimer Heparin Anti-Xa Level < 0.10 L ABG pH POC ABG pCO2 POC ABG pO2 ABG pO2 ABG HCO3 ABG Hemoglobin 11.8 L ABG Oxyhemoglobin ABG Sodium 127.1 L ABG Potassium 5.4 H ABG Chloride ABG Glucose 155 H Carboxyhemoglobin 0.3 L Sodium Potassium Chloride Carbon Dioxide BUN Creatinine Glucose POC Glucose 148 H Lactic Acid Calcium Phosphorus Magnesium Ferritin Direct Bilirubin AST ALT Alkaline Phosphatase Lactate Dehydrogenase Total Creatine Kinase C-Reactive Protein Total Protein Albumin Triglycerides Arterial Blood Glucose 155 H Arterial Blood Ionized Calcium 4.2 L Urine Creatinine Urine Chloride Vancomycin Trough Coronavirus (PCR) Crossmatch 06/26/20 06/26/20 06/26/20 03:59 05:14 05:47 WBC 36.5 H RBC 3.26 L Hgb 9.7 L Hct 28.2 L MCHC RDW Lymph % (Auto) [place] % (Auto) Lymph # (Auto) [place] # (Auto) Eos # (Auto) Seg Neutrophils % Seg Neuts % (Manual) 92.0 H Lymphocytes % (Manual) 4.0 L Monocytes % (Manual) Nucleated RBC % Seg Neutrophils # Seg Neutrophils # Man 33.6 H Lymphocytes # (Manual) Monocytes # (Manual) Eosinophils # (Manual) PT INR APTT D-Dimer Heparin Anti-Xa Level ABG pH POC ABG pCO2 POC ABG pO2 ABG pO2 ABG HCO3 ABG Hemoglobin ABG Oxyhemoglobin ABG Sodium ABG Potassium ABG Chloride ABG Glucose Carboxyhemoglobin Sodium Potassium 5.9 H Chloride Carbon Dioxide 20 L BUN 144 H Creatinine 6.4 H Glucose 149 H POC Glucose 128 H Lactic Acid Calcium 7.6 L Phosphorus Magnesium Ferritin Direct Bilirubin AST ALT Alkaline Phosphatase Lactate Dehydrogenase Total Creatine Kinase C-Reactive Protein Total Protein Albumin Triglycerides Arterial Blood Glucose Arterial Blood Ionized Calcium Urine Creatinine Urine Chloride Vancomycin Trough Coronavirus (PCR) Crossmatch 06/26/20 06/26/20 06/26/20 05:47 12:47 17:42 WBC RBC Hgb Hct MCHC RDW Lymph % (Auto) [place] % (Auto) Lymph # (Auto) [place] # (Auto) Eos # (Auto) Seg Neutrophils % Seg Neuts % (Manual) Lymphocytes % (Manual) Monocytes % (Manual) Nucleated RBC % Seg Neutrophils # Seg Neutrophils # Man Lymphocytes # (Manual) Monocytes # (Manual) Eosinophils # (Manual) PT 17.4 H INR 1.44 H APTT D-Dimer Heparin Anti-Xa Level ABG pH POC ABG pCO2 POC ABG pO2 ABG pO2 ABG HCO3 ABG Hemoglobin ABG Oxyhemoglobin ABG Sodium ABG Potassium ABG Chloride ABG Glucose Carboxyhemoglobin Sodium Potassium Chloride Carbon Dioxide BUN Creatinine Glucose POC Glucose 124 H 127 H Lactic Acid Calcium Phosphorus Magnesium Ferritin Direct Bilirubin AST ALT Alkaline Phosphatase Lactate Dehydrogenase Total Creatine Kinase C-Reactive Protein Total Protein Albumin Triglycerides Arterial Blood Glucose Arterial Blood Ionized Calcium Urine Creatinine Urine Chloride Vancomycin Trough Coronavirus (PCR) Crossmatch 06/26/20 06/27/20 06/27/20 23:30 03:32 04:00 WBC RBC Hgb 8.7 L Hct 26.4 L MCHC RDW Lymph % (Auto) [place] % (Auto) Lymph # (Auto) [place] # (Auto) Eos # (Auto) Seg Neutrophils % Seg Neuts % (Manual) Lymphocytes % (Manual) Monocytes % (Manual) Nucleated RBC % Seg Neutrophils # Seg Neutrophils # Man Lymphocytes # (Manual) Monocytes # (Manual) Eosinophils # (Manual) PT INR APTT D-Dimer Heparin Anti-Xa Level ABG pH 7.298 L POC ABG pCO2 POC ABG pO2 ABG pO2 ABG HCO3 ABG Hemoglobin 9.6 L ABG Oxyhemoglobin ABG Sodium 124.4 L ABG Potassium 6.6 H ABG Chloride ABG Glucose 136 H Carboxyhemoglobin Sodium Potassium Chloride Carbon Dioxide BUN Creatinine Glucose POC Glucose 123 H Lactic Acid Calcium Phosphorus Magnesium Ferritin Direct Bilirubin AST ALT Alkaline Phosphatase Lactate Dehydrogenase Total Creatine Kinase C-Reactive Protein Total Protein Albumin Triglycerides Arterial Blood Glucose 136 H Arterial Blood Ionized Calcium 4.1 L Urine Creatinine Urine Chloride Vancomycin Trough Coronavirus (PCR) Crossmatch 06/27/20 06/27/20 06/27/20 05:26 10:14 11:58 WBC RBC Hgb Hct MCHC RDW Lymph % (Auto) [place] % (Auto) Lymph # (Auto) [place] # (Auto) Eos # (Auto) Seg Neutrophils % Seg Neuts % (Manual) Lymphocytes % (Manual) Monocytes % (Manual) Nucleated RBC % Seg Neutrophils # Seg Neutrophils # Man Lymphocytes # (Manual) Monocytes # (Manual) Eosinophils # (Manual) PT INR APTT D-Dimer Heparin Anti-Xa Level ABG pH POC ABG pCO2 POC ABG pO2 ABG pO2 ABG HCO3 ABG Hemoglobin ABG Oxyhemoglobin ABG Sodium ABG Potassium ABG Chloride ABG Glucose Carboxyhemoglobin Sodium 136 L Potassium 7.0 H* Chloride 97.8 L Carbon Dioxide BUN 172 H Creatinine 7.4 H Glucose 129 H POC Glucose 124 H 115 H Lactic Acid Calcium 7.6 L Phosphorus Magnesium Ferritin Direct Bilirubin AST ALT Alkaline Phosphatase Lactate Dehydrogenase Total Creatine Kinase C-Reactive Protein Total Protein Albumin Triglycerides Arterial Blood Glucose Arterial Blood Ionized Calcium Urine Creatinine Urine Chloride Vancomycin Trough Coronavirus (PCR) Crossmatch 06/27/20 06/27/20 06/27/20 17:32 18:30 23:24 WBC RBC Hgb Hct MCHC RDW Lymph % (Auto) [place] % (Auto) Lymph # (Auto) [place] # (Auto) Eos # (Auto) Seg Neutrophils % Seg Neuts % (Manual) Lymphocytes % (Manual) Monocytes % (Manual) Nucleated RBC % Seg Neutrophils # Seg Neutrophils # Man Lymphocytes # (Manual) Monocytes # (Manual) Eosinophils # (Manual) PT INR APTT D-Dimer Heparin Anti-Xa Level ABG pH POC ABG pCO2 POC ABG pO2 ABG pO2 ABG HCO3 ABG Hemoglobin ABG Oxyhemoglobin ABG Sodium ABG Potassium ABG Chloride ABG Glucose Carboxyhemoglobin Sodium Potassium 7.3 H* Chloride Carbon Dioxide BUN Creatinine Glucose POC Glucose 122 H 116 H Lactic Acid Calcium Phosphorus Magnesium Ferritin Direct Bilirubin AST ALT Alkaline Phosphatase Lactate Dehydrogenase Total Creatine Kinase C-Reactive Protein Total Protein Albumin Triglycerides Arterial Blood Glucose Arterial Blood Ionized Calcium Urine Creatinine Urine Chloride Vancomycin Trough Coronavirus (PCR) Crossmatch 06/28/20 06/28/20 06/28/20 00:00 02:16 05:37 WBC RBC Hgb Hct MCHC RDW Lymph % (Auto) [place] % (Auto) Lymph # (Auto) [place] # (Auto) Eos # (Auto) Seg Neutrophils % Seg Neuts % (Manual) Lymphocytes % (Manual) Monocytes % (Manual) Nucleated RBC % Seg Neutrophils # Seg Neutrophils # Man Lymphocytes # (Manual) Monocytes # (Manual) Eosinophils # (Manual) PT INR APTT D-Dimer Heparin Anti-Xa Level ABG pH POC ABG pCO2 POC ABG pO2 79.0 L ABG pO2 ABG HCO3 ABG Hemoglobin 11.7 L ABG Oxyhemoglobin ABG Sodium 128.1 L ABG Potassium 6.6 H ABG Chloride ABG Glucose 124 H Carboxyhemoglobin Sodium Potassium 7.3 H* Chloride Carbon Dioxide BUN Creatinine Glucose POC Glucose 115 H Lactic Acid Calcium Phosphorus Magnesium Ferritin Direct Bilirubin AST ALT Alkaline Phosphatase Lactate Dehydrogenase Total Creatine Kinase C-Reactive Protein Total Protein Albumin Triglycerides Arterial Blood Glucose 124 H Arterial Blood Ionized Calcium 4.2 L Urine Creatinine Urine Chloride Vancomycin Trough Coronavirus (PCR) Crossmatch 06/28/20 06/28/20 06/28/20 10:03 10:03 11:51 WBC 33.6 H RBC 3.03 L Hgb 8.9 L Hct 27.0 L MCHC RDW Lymph % (Auto) [place] % (Auto) Lymph # (Auto) [place] # (Auto) Eos # (Auto) Seg Neutrophils % Seg Neuts % (Manual) Lymphocytes % (Manual) Monocytes % (Manual) Nucleated RBC % Seg Neutrophils # Seg Neutrophils # Man Lymphocytes # (Manual) Monocytes # (Manual) Eosinophils # (Manual) PT INR APTT D-Dimer Heparin Anti-Xa Level ABG pH POC ABG pCO2 POC ABG pO2 ABG pO2 ABG HCO3 ABG Hemoglobin ABG Oxyhemoglobin ABG Sodium ABG Potassium ABG Chloride ABG Glucose Carboxyhemoglobin Sodium 136 L Potassium 6.5 H* Chloride Carbon Dioxide 20 L BUN 129 H Creatinine 5.8 H Glucose 113 H POC Glucose 107 H Lactic Acid Calcium 7.6 L Phosphorus Magnesium Ferritin Direct Bilirubin AST ALT Alkaline Phosphatase Lactate Dehydrogenase Total Creatine Kinase C-Reactive Protein Total Protein Albumin Triglycerides Arterial Blood Glucose Arterial Blood Ionized Calcium Urine Creatinine Urine Chloride Vancomycin Trough Coronavirus (PCR) Crossmatch 06/28/20 06/28/20 06/29/20 17:45 Unknown 03:15 WBC RBC Hgb Hct MCHC RDW Lymph % (Auto) [place] % (Auto) Lymph # (Auto) [place] # (Auto) Eos # (Auto) Seg Neutrophils % Seg Neuts % (Manual) Lymphocytes % (Manual) Monocytes % (Manual) Nucleated RBC % Seg Neutrophils # Seg Neutrophils # Man Lymphocytes # (Manual) Monocytes # (Manual) Eosinophils # (Manual) PT INR APTT D-Dimer Heparin Anti-Xa Level ABG pH POC ABG pCO2 POC ABG pO2 ABG pO2 ABG HCO3 ABG Hemoglobin 7.8 L ABG Oxyhemoglobin ABG Sodium 127.4 L ABG Potassium 5.5 H ABG Chloride 97.0 L ABG Glucose 96 H Carboxyhemoglobin Sodium Potassium 5.4 H Chloride Carbon Dioxide BUN Creatinine Glucose POC Glucose 117 H Lactic Acid Calcium Phosphorus Magnesium Ferritin Direct Bilirubin AST ALT Alkaline Phosphatase Lactate Dehydrogenase Total Creatine Kinase C-Reactive Protein Total Protein Albumin Triglycerides Arterial Blood Glucose 96 H Arterial Blood Ionized Calcium 4.0 L Urine Creatinine Urine Chloride Vancomycin Trough Coronavirus (PCR) Crossmatch 06/29/20 06/29/20 06/29/20 03:45 Unknown Unknown WBC RBC Hgb Hct MCHC RDW Lymph % (Auto) [place] % (Auto) Lymph # (Auto) [place] # (Auto) Eos # (Auto) Seg Neutrophils % Seg Neuts % (Manual) Lymphocytes % (Manual) Monocytes % (Manual) Nucleated RBC % Seg Neutrophils # Seg Neutrophils # Man Lymphocytes # (Manual) Monocytes # (Manual) Eosinophils # (Manual) PT INR APTT D-Dimer Heparin Anti-Xa Level ABG pH POC ABG pCO2 POC ABG pO2 ABG pO2 ABG HCO3 ABG Hemoglobin ABG Oxyhemoglobin ABG Sodium ABG Potassium ABG Chloride ABG Glucose Carboxyhemoglobin Sodium 135 L Potassium 6.0 H 6.1 H* Chloride 94.8 L Carbon Dioxide BUN 109 H 114 H Creatinine 5.5 H Glucose POC Glucose Lactic Acid Calcium 7.4 L Phosphorus Magnesium Ferritin Direct Bilirubin AST 47 H ALT Alkaline Phosphatase Lactate Dehydrogenase Total Creatine Kinase C-Reactive Protein Total Protein 4.9 L Albumin 2.2 L Triglycerides Arterial Blood Glucose Arterial Blood Ionized Calcium Urine Creatinine Urine Chloride Vancomycin Trough Coronavirus (PCR) Crossmatch 06/29/20 06/29/20 06/30/20 Unknown Unknown 03:32 WBC 20.7 H RBC 2.57 L Hgb 7.6 L Hct 23.0 L MCHC RDW Lymph % (Auto) [place] % (Auto) Lymph # (Auto) [place] # (Auto) Eos # (Auto) Seg Neutrophils % Seg Neuts % (Manual) Lymphocytes % (Manual) Monocytes % (Manual) Nucleated RBC % Seg Neutrophils # Seg Neutrophils # Man Lymphocytes # (Manual) Monocytes # (Manual) Eosinophils # (Manual) PT INR APTT D-Dimer Heparin Anti-Xa Level ABG pH POC ABG pCO2 POC ABG pO2 ABG pO2 ABG HCO3 ABG Hemoglobin 11.4 L ABG Oxyhemoglobin ABG Sodium 130.1 L ABG Potassium 5.0 H ABG Chloride ABG Glucose Carboxyhemoglobin Sodium Potassium Chloride Carbon Dioxide BUN Creatinine Glucose POC Glucose Lactic Acid Calcium Phosphorus Magnesium Ferritin Direct Bilirubin AST ALT Alkaline Phosphatase Lactate Dehydrogenase Total Creatine Kinase 618 H C-Reactive Protein Total Protein Albumin Triglycerides Arterial Blood Glucose Arterial Blood Ionized Calcium 3.9 L Urine Creatinine Urine Chloride Vancomycin Trough Coronavirus (PCR) Crossmatch 06/30/20 06/30/20 06/30/20 03:50 03:50 11:39 WBC 13.1 H RBC Hgb Hct MCHC RDW Lymph % (Auto) [place] % (Auto) Lymph # (Auto) [place] # (Auto) Eos # (Auto) Seg Neutrophils % Seg Neuts % (Manual) 95.0 H Lymphocytes % (Manual) 3.0 L Monocytes % (Manual) Nucleated RBC % Seg Neutrophils # Seg Neutrophils # Man 12.4 H Lymphocytes # (Manual) 0.4 L Monocytes # (Manual) Eosinophils # (Manual) PT INR APTT D-Dimer Heparin Anti-Xa Level ABG pH POC ABG pCO2 POC ABG pO2 ABG pO2 ABG HCO3 ABG Hemoglobin ABG Oxyhemoglobin ABG Sodium ABG Potassium ABG Chloride ABG Glucose Carboxyhemoglobin Sodium 135 L Potassium 5.4 H D Chloride 93.6 L Carbon Dioxide BUN 85 H Creatinine 4.6 H Glucose POC Glucose 111 H Lactic Acid Calcium 7.1 L Phosphorus 9.40 H Magnesium Ferritin Direct Bilirubin AST ALT Alkaline Phosphatase Lactate Dehydrogenase Total Creatine Kinase C-Reactive Protein Total Protein Albumin Triglycerides Arterial Blood Glucose Arterial Blood Ionized Calcium Urine Creatinine Urine Chloride Vancomycin Trough Coronavirus (PCR) Crossmatch 06/30/20 06/30/20 07/01/20 13:12 Unknown 03:19 WBC RBC Hgb 7.8 L D Hct 23.2 L D MCHC RDW Lymph % (Auto) [place] % (Auto) Lymph # (Auto) [place] # (Auto) Eos # (Auto) Seg Neutrophils % Seg Neuts % (Manual) Lymphocytes % (Manual) Monocytes % (Manual) Nucleated RBC % Seg Neutrophils # Seg Neutrophils # Man Lymphocytes # (Manual) Monocytes # (Manual) Eosinophils # (Manual) PT INR APTT D-Dimer Heparin Anti-Xa Level ABG pH 7.461 H POC ABG pCO2 POC ABG pO2 77.2 L ABG pO2 ABG HCO3 ABG Hemoglobin 6.9 L ABG Oxyhemoglobin ABG Sodium 128.5 L ABG Potassium ABG Chloride 97.0 L ABG Glucose Carboxyhemoglobin Sodium Potassium Chloride Carbon Dioxide BUN Creatinine Glucose POC Glucose Lactic Acid Calcium Phosphorus Magnesium Ferritin Direct Bilirubin AST ALT Alkaline Phosphatase Lactate Dehydrogenase Total Creatine Kinase C-Reactive Protein Total Protein Albumin Triglycerides Arterial Blood Glucose Arterial Blood Ionized Calcium 3.7 L Urine Creatinine Urine Chloride Vancomycin Trough Coronavirus (PCR) Positive A Crossmatch 07/01/20 07/01/20 07/01/20 06:00 06:00 11:04 WBC 16.7 H RBC 2.16 L Hgb 6.4 L Hct 19.2 L* MCHC RDW Lymph % (Auto) [place] % (Auto) Lymph # (Auto) [place] # (Auto) Eos # (Auto) Seg Neutrophils % Seg Neuts % (Manual) Lymphocytes % (Manual) Monocytes % (Manual) Nucleated RBC % Seg Neutrophils # Seg Neutrophils # Man Lymphocytes # (Manual) Monocytes # (Manual) Eosinophils # (Manual) PT INR APTT D-Dimer Heparin Anti-Xa Level ABG pH POC ABG pCO2 POC ABG pO2 ABG pO2 ABG HCO3 ABG Hemoglobin ABG Oxyhemoglobin ABG Sodium ABG Potassium ABG Chloride ABG Glucose Carboxyhemoglobin Sodium 136 L Potassium Chloride 95.8 L Carbon Dioxide BUN 72 H Creatinine 4.3 H Glucose POC Glucose Lactic Acid Calcium 6.7 L Phosphorus Magnesium Ferritin Direct Bilirubin AST ALT Alkaline Phosphatase Lactate Dehydrogenase Total Creatine Kinase C-Reactive Protein Total Protein Albumin Triglycerides 250 H Arterial Blood Glucose Arterial Blood Ionized Calcium Urine Creatinine Urine Chloride Vancomycin Trough Coronavirus (PCR) Crossmatch See Detail 07/02/20 07/02/20 07/02/20 04:44 06:00 11:33 WBC 14.6 H RBC 2.47 L Hgb 7.4 L Hct 21.8 L MCHC RDW Lymph % (Auto) [place] % (Auto) Lymph # (Auto) [place] # (Auto) Eos # (Auto) Seg Neutrophils % Seg Neuts % (Manual) Lymphocytes % (Manual) Monocytes % (Manual) Nucleated RBC % Seg Neutrophils # Seg Neutrophils # Man Lymphocytes # (Manual) Monocytes # (Manual) Eosinophils # (Manual) PT INR APTT D-Dimer Heparin Anti-Xa Level ABG pH 7.457 H POC ABG pCO2 POC ABG pO2 79.4 L ABG pO2 ABG HCO3 ABG Hemoglobin 8.5 L ABG Oxyhemoglobin ABG Sodium 128.4 L ABG Potassium ABG Chloride 97.0 L ABG Glucose 100 H Carboxyhemoglobin Sodium 133 L Potassium 5.2 H Chloride 93.3 L Carbon Dioxide BUN 66 H Creatinine 4.1 H Glucose 102 H POC Glucose Lactic Acid Calcium 7.2 L Phosphorus Magnesium Ferritin Direct Bilirubin AST ALT Alkaline Phosphatase Lactate Dehydrogenase Total Creatine Kinase C-Reactive Protein Total Protein Albumin Triglycerides Arterial Blood Glucose 100 H Arterial Blood Ionized Calcium 3.9 L Urine Creatinine Urine Chloride Vancomycin Trough Coronavirus (PCR) Crossmatch 07/02/20 07/03/20 07/03/20 11:33 03:54 09:15 WBC 16.6 H RBC 2.44 L Hgb 7.3 L Hct 21.4 L MCHC RDW Lymph % (Auto) [place] % (Auto) Lymph # (Auto) [place] # (Auto) Eos # (Auto) Seg Neutrophils % Seg Neuts % (Manual) Lymphocytes % (Manual) Monocytes % (Manual) Nucleated RBC % Seg Neutrophils # Seg Neutrophils # Man Lymphocytes # (Manual) Monocytes # (Manual) Eosinophils # (Manual) PT INR APTT D-Dimer Heparin Anti-Xa Level ABG pH POC ABG pCO2 POC ABG pO2 66.1 L ABG pO2 ABG HCO3 ABG Hemoglobin 8.0 L ABG Oxyhemoglobin ABG Sodium 124.6 L ABG Potassium 5.5 H ABG Chloride 96.0 L ABG Glucose 111 H Carboxyhemoglobin Sodium Potassium Chloride Carbon Dioxide BUN Creatinine Glucose POC Glucose Lactic Acid Calcium Phosphorus Magnesium Ferritin Direct Bilirubin 0.7 H AST 94 H ALT 60 H Alkaline Phosphatase Lactate Dehydrogenase Total Creatine Kinase C-Reactive Protein Total Protein 4.4 L Albumin 1.9 L Triglycerides Arterial Blood Glucose 111 H Arterial Blood Ionized Calcium 3.8 L Urine Creatinine Urine Chloride Vancomycin Trough Coronavirus (PCR) Crossmatch 07/03/20 07/03/20 07/03/20 09:15 10:10 14:50 WBC RBC Hgb Hct MCHC RDW Lymph % (Auto) [place] % (Auto) Lymph # (Auto) [place] # (Auto) Eos # (Auto) Seg Neutrophils % Seg Neuts % (Manual) Lymphocytes % (Manual) Monocytes % (Manual) Nucleated RBC % Seg Neutrophils # Seg Neutrophils # Man Lymphocytes # (Manual) Monocytes # (Manual) Eosinophils # (Manual) PT INR APTT D-Dimer 6608.00 H Heparin Anti-Xa Level ABG pH POC ABG pCO2 POC ABG pO2 ABG pO2 ABG HCO3 ABG Hemoglobin ABG Oxyhemoglobin ABG Sodium ABG Potassium ABG Chloride ABG Glucose Carboxyhemoglobin Sodium 133 L Potassium 6.2 H* Chloride 93.1 L Carbon Dioxide BUN 89 H Creatinine 5.1 H Glucose POC Glucose Lactic Acid Calcium 7.0 L Phosphorus Magnesium Ferritin Direct Bilirubin AST ALT Alkaline Phosphatase Lactate Dehydrogenase Total Creatine Kinase C-Reactive Protein Total Protein Albumin Triglycerides Arterial Blood Glucose Arterial Blood Ionized Calcium Urine Creatinine Urine Chloride Vancomycin Trough Coronavirus (PCR) Positive A Crossmatch 07/03/20 07/03/20 07/03/20 14:50 14:50 14:50 WBC RBC Hgb Hct MCHC RDW Lymph % (Auto) [place] % (Auto) Lymph # (Auto) [place] # (Auto) Eos # (Auto) Seg Neutrophils % Seg Neuts % (Manual) Lymphocytes % (Manual) Monocytes % (Manual) Nucleated RBC % Seg Neutrophils # Seg Neutrophils # Man Lymphocytes # (Manual) Monocytes # (Manual) Eosinophils # (Manual) PT INR APTT D-Dimer Heparin Anti-Xa Level ABG pH POC ABG pCO2 POC ABG pO2 ABG pO2 ABG HCO3 ABG Hemoglobin ABG Oxyhemoglobin ABG Sodium ABG Potassium ABG Chloride ABG Glucose Carboxyhemoglobin Sodium Potassium Chloride Carbon Dioxide BUN Creatinine Glucose POC Glucose Lactic Acid < 0.20 L Calcium Phosphorus Magnesium Ferritin 1171.0 H Direct Bilirubin AST ALT Alkaline Phosphatase Lactate Dehydrogenase 525 H Total Creatine Kinase C-Reactive Protein 31.50 H Total Protein Albumin Triglycerides Arterial Blood Glucose Arterial Blood Ionized Calcium Urine Creatinine Urine Chloride Vancomycin Trough Coronavirus (PCR) Crossmatch 07/03/20 07/04/20 07/04/20 16:47 05:20 05:20 WBC 11.8 H RBC 2.32 L Hgb 6.7 L Hct 20.8 L MCHC RDW Lymph % (Auto) 2.6 L [place] % (Auto) Lymph # (Auto) 0.3 L [place] # (Auto) Eos # (Auto) Seg Neutrophils % Seg Neuts % (Manual) Lymphocytes % (Manual) Monocytes % (Manual) Nucleated RBC % Seg Neutrophils # 11.0 H Seg Neutrophils # Man Lymphocytes # (Manual) Monocytes # (Manual) Eosinophils # (Manual) PT INR APTT D-Dimer Heparin Anti-Xa Level ABG pH POC ABG pCO2 POC ABG pO2 ABG pO2 ABG HCO3 ABG Hemoglobin ABG Oxyhemoglobin ABG Sodium ABG Potassium ABG Chloride ABG Glucose Carboxyhemoglobin Sodium Potassium 6.0 H Chloride 97.8 L Carbon Dioxide BUN 75 H Creatinine 4.5 H Glucose 121 H POC Glucose 107 H Lactic Acid Calcium 7.9 L Phosphorus Magnesium Ferritin Direct Bilirubin AST ALT Alkaline Phosphatase Lactate Dehydrogenase Total Creatine Kinase C-Reactive Protein Total Protein Albumin Triglycerides Arterial Blood Glucose Arterial Blood Ionized Calcium Urine Creatinine Urine Chloride Vancomycin Trough Coronavirus (PCR) Crossmatch 07/04/20 07/04/20 07/04/20 05:20 05:50 09:25 WBC RBC Hgb Hct MCHC RDW Lymph % (Auto) [place] % (Auto) Lymph # (Auto) [place] # (Auto) Eos # (Auto) Seg Neutrophils % Seg Neuts % (Manual) Lymphocytes % (Manual) Monocytes % (Manual) Nucleated RBC % Seg Neutrophils # Seg Neutrophils # Man Lymphocytes # (Manual) Monocytes # (Manual) Eosinophils # (Manual) PT INR APTT D-Dimer Heparin Anti-Xa Level ABG pH 7.324 L POC ABG pCO2 POC ABG pO2 ABG pO2 98.9 H ABG HCO3 26.8 H ABG Hemoglobin < 5.1 L ABG Oxyhemoglobin ABG Sodium ABG Potassium ABG Chloride ABG Glucose Carboxyhemoglobin Sodium Potassium Chloride Carbon Dioxide BUN Creatinine Glucose POC Glucose 114 H Lactic Acid Calcium Phosphorus Magnesium Ferritin Direct Bilirubin AST ALT Alkaline Phosphatase Lactate Dehydrogenase Total Creatine Kinase C-Reactive Protein Total Protein Albumin Triglycerides Arterial Blood Glucose Arterial Blood Ionized Calcium Urine Creatinine Urine Chloride Vancomycin Trough Coronavirus (PCR) Crossmatch See Detail 07/04/20 07/04/20 07/04/20 12:33 17:41 23:04 WBC RBC Hgb Hct MCHC RDW Lymph % (Auto) [place] % (Auto) Lymph # (Auto) [place] # (Auto) Eos # (Auto) Seg Neutrophils % Seg Neuts % (Manual) Lymphocytes % (Manual) Monocytes % (Manual) Nucleated RBC % Seg Neutrophils # Seg Neutrophils # Man Lymphocytes # (Manual) Monocytes # (Manual) Eosinophils # (Manual) PT INR APTT D-Dimer Heparin Anti-Xa Level ABG pH POC ABG pCO2 POC ABG pO2 ABG pO2 ABG HCO3 ABG Hemoglobin ABG Oxyhemoglobin ABG Sodium ABG Potassium ABG Chloride ABG Glucose Carboxyhemoglobin Sodium Potassium Chloride Carbon Dioxide BUN Creatinine Glucose POC Glucose 119 H 109 H 116 H Lactic Acid Calcium Phosphorus Magnesium Ferritin Direct Bilirubin AST ALT Alkaline Phosphatase Lactate Dehydrogenase Total Creatine Kinase C-Reactive Protein Total Protein Albumin Triglycerides Arterial Blood Glucose Arterial Blood Ionized Calcium Urine Creatinine Urine Chloride Vancomycin Trough Coronavirus (PCR) Crossmatch 07/05/20 07/05/20 07/05/20 04:30 08:21 08:21 WBC RBC 2.77 L Hgb 7.9 L Hct 23.9 L MCHC RDW 16.7 H Lymph % (Auto) 7.5 L [place] % (Auto) Lymph # (Auto) 0.7 L [place] # (Auto) Eos # (Auto) Seg Neutrophils % 85.8 H Seg Neuts % (Manual) Lymphocytes % (Manual) Monocytes % (Manual) Nucleated RBC % Seg Neutrophils # 7.8 H Seg Neutrophils # Man Lymphocytes # (Manual) Monocytes # (Manual) Eosinophils # (Manual) PT INR APTT D-Dimer Heparin Anti-Xa Level ABG pH 7.295 L POC ABG pCO2 POC ABG pO2 ABG pO2 151.9 H ABG HCO3 26.8 H ABG Hemoglobin 7.3 L ABG Oxyhemoglobin ABG Sodium ABG Potassium ABG Chloride ABG Glucose Carboxyhemoglobin Sodium Potassium Chloride Carbon Dioxide BUN Creatinine Glucose POC Glucose Lactic Acid Calcium Phosphorus Magnesium Ferritin Direct Bilirubin AST ALT Alkaline Phosphatase Lactate Dehydrogenase Total Creatine Kinase C-Reactive Protein Total Protein Albumin Triglycerides 258 H Arterial Blood Glucose Arterial Blood Ionized Calcium Urine Creatinine Urine Chloride Vancomycin Trough Coronavirus (PCR) Crossmatch 07/05/20 07/05/20 07/06/20 08:21 12:12 04:29 WBC RBC Hgb Hct MCHC RDW Lymph % (Auto) [place] % (Auto) Lymph # (Auto) [place] # (Auto) Eos # (Auto) Seg Neutrophils % Seg Neuts % (Manual) Lymphocytes % (Manual) Monocytes % (Manual) Nucleated RBC % Seg Neutrophils # Seg Neutrophils # Man Lymphocytes # (Manual) Monocytes # (Manual) Eosinophils # (Manual) PT INR APTT D-Dimer Heparin Anti-Xa Level ABG pH 7.291 L POC ABG pCO2 51.3 H POC ABG pO2 ABG pO2 ABG HCO3 ABG Hemoglobin 8.5 L ABG Oxyhemoglobin ABG Sodium 129.6 L ABG Potassium 4.8 H ABG Chloride 96.0 L ABG Glucose Carboxyhemoglobin Sodium 133 L Potassium 5.6 H Chloride 94.4 L Carbon Dioxide BUN 80 H Creatinine 4.2 H Glucose 114 H POC Glucose 106 H Lactic Acid Calcium 7.6 L Phosphorus Magnesium Ferritin Direct Bilirubin 0.5 H AST 75 H ALT 86 H Alkaline Phosphatase Lactate Dehydrogenase Total Creatine Kinase C-Reactive Protein Total Protein 5.6 L D Albumin 1.9 L Triglycerides Arterial Blood Glucose Arterial Blood Ionized Calcium 4.2 L Urine Creatinine Urine Chloride Vancomycin Trough Coronavirus (PCR) Crossmatch 07/06/20 07/06/20 07/06/20 11:35 11:35 12:16 WBC RBC 2.54 L Hgb 7.5 L Hct 21.5 L MCHC 35 H RDW 15.7 H Lymph % (Auto) [place] % (Auto) Lymph # (Auto) [place] # (Auto) Eos # (Auto) Seg Neutrophils % Seg Neuts % (Manual) Lymphocytes % (Manual) Monocytes % (Manual) Nucleated RBC % Seg Neutrophils # Seg Neutrophils # Man Lymphocytes # (Manual) Monocytes # (Manual) Eosinophils # (Manual) PT INR APTT D-Dimer Heparin Anti-Xa Level ABG pH POC ABG pCO2 POC ABG pO2 ABG pO2 ABG HCO3 ABG Hemoglobin ABG Oxyhemoglobin ABG Sodium ABG Potassium ABG Chloride ABG Glucose Carboxyhemoglobin Sodium 130 L Potassium Chloride 92.2 L Carbon Dioxide 19 L D BUN 107 H Creatinine 5.1 H Glucose 106 H POC Glucose 106 H Lactic Acid Calcium 7.5 L Phosphorus Magnesium Ferritin Direct Bilirubin AST ALT Alkaline Phosphatase Lactate Dehydrogenase Total Creatine Kinase C-Reactive Protein Total Protein Albumin Triglycerides Arterial Blood Glucose Arterial Blood Ionized Calcium Urine Creatinine Urine Chloride Vancomycin Trough Coronavirus (PCR) Crossmatch 07/06/20 07/06/20 07/06/20 17:01 21:56 23:41 WBC RBC Hgb Hct MCHC RDW Lymph % (Auto) [place] % (Auto) Lymph # (Auto) [place] # (Auto) Eos # (Auto) Seg Neutrophils % Seg Neuts % (Manual) Lymphocytes % (Manual) Monocytes % (Manual) Nucleated RBC % Seg Neutrophils # Seg Neutrophils # Man Lymphocytes # (Manual) Monocytes # (Manual) Eosinophils # (Manual) PT INR APTT D-Dimer Heparin Anti-Xa Level ABG pH POC ABG pCO2 POC ABG pO2 ABG pO2 ABG HCO3 ABG Hemoglobin ABG Oxyhemoglobin ABG Sodium ABG Potassium ABG Chloride ABG Glucose Carboxyhemoglobin Sodium 135 L Potassium 5.1 H Chloride Carbon Dioxide BUN 73 H Creatinine 4.0 H Glucose 112 H POC Glucose 109 H 111 H Lactic Acid Calcium 7.8 L Phosphorus Magnesium Ferritin Direct Bilirubin AST ALT Alkaline Phosphatase Lactate Dehydrogenase Total Creatine Kinase C-Reactive Protein Total Protein Albumin Triglycerides Arterial Blood Glucose Arterial Blood Ionized Calcium Urine Creatinine Urine Chloride Vancomycin Trough Coronavirus (PCR) Crossmatch 07/07/20 07/07/20 07/07/20 04:18 05:04 05:29 WBC RBC 2.46 L Hgb 7.6 L Hct 21.5 L MCHC 35 H RDW 16.5 H Lymph % (Auto) [place] % (Auto) Lymph # (Auto) [place] # (Auto) Eos # (Auto) Seg Neutrophils % Seg Neuts % (Manual) 82.0 H Lymphocytes % (Manual) Monocytes % (Manual) Nucleated RBC % 1.0 H Seg Neutrophils # Seg Neutrophils # Man Lymphocytes # (Manual) 1.1 L Monocytes # (Manual) Eosinophils # (Manual) PT INR APTT D-Dimer Heparin Anti-Xa Level ABG pH POC ABG pCO2 POC ABG pO2 79.6 L ABG pO2 ABG HCO3 ABG Hemoglobin 8.2 L ABG Oxyhemoglobin ABG Sodium 133.3 L ABG Potassium 4.7 H ABG Chloride ABG Glucose 135 H Carboxyhemoglobin Sodium Potassium Chloride Carbon Dioxide BUN Creatinine Glucose POC Glucose 112 H Lactic Acid Calcium Phosphorus Magnesium Ferritin Direct Bilirubin AST ALT Alkaline Phosphatase Lactate Dehydrogenase Total Creatine Kinase C-Reactive Protein Total Protein Albumin Triglycerides Arterial Blood Glucose 135 H Arterial Blood Ionized Calcium 4.5 L Urine Creatinine Urine Chloride Vancomycin Trough Coronavirus (PCR) Crossmatch 07/07/20 07/07/20 07/07/20 10:17 12:18 17:43 WBC RBC Hgb Hct MCHC RDW Lymph % (Auto) [place] % (Auto) Lymph # (Auto) [place] # (Auto) Eos # (Auto) Seg Neutrophils % Seg Neuts % (Manual) Lymphocytes % (Manual) Monocytes % (Manual) Nucleated RBC % Seg Neutrophils # Seg Neutrophils # Man Lymphocytes # (Manual) Monocytes # (Manual) Eosinophils # (Manual) PT INR APTT D-Dimer Heparin Anti-Xa Level ABG pH POC ABG pCO2 POC ABG pO2 ABG pO2 ABG HCO3 ABG Hemoglobin ABG Oxyhemoglobin ABG Sodium ABG Potassium ABG Chloride ABG Glucose Carboxyhemoglobin Sodium 136 L Potassium Chloride 96.8 L Carbon Dioxide BUN 82 H Creatinine 4.3 H Glucose 129 H POC Glucose 108 H 116 H Lactic Acid Calcium 7.8 L Phosphorus Magnesium Ferritin Direct Bilirubin AST ALT Alkaline Phosphatase Lactate Dehydrogenase Total Creatine Kinase C-Reactive Protein Total Protein Albumin Triglycerides Arterial Blood Glucose Arterial Blood Ionized Calcium Urine Creatinine Urine Chloride Vancomycin Trough Coronavirus (PCR) Crossmatch 07/07/20 07/08/20 07/08/20 23:31 04:00 04:00 WBC RBC 2.52 L Hgb 7.3 L Hct 22.2 L MCHC RDW 16.6 H Lymph % (Auto) 11.5 L [place] % (Auto) Lymph # (Auto) [place] # (Auto) Eos # (Auto) Seg Neutrophils % 78.2 H Seg Neuts % (Manual) Lymphocytes % (Manual) Monocytes % (Manual) Nucleated RBC % Seg Neutrophils # 8.0 H Seg Neutrophils # Man Lymphocytes # (Manual) Monocytes # (Manual) Eosinophils # (Manual) PT INR APTT D-Dimer Heparin Anti-Xa Level ABG pH POC ABG pCO2 POC ABG pO2 ABG pO2 ABG HCO3 ABG Hemoglobin ABG Oxyhemoglobin ABG Sodium ABG Potassium ABG Chloride ABG Glucose Carboxyhemoglobin Sodium 132 L Potassium 5.4 H Chloride 92.5 L Carbon Dioxide BUN 98 H Creatinine 4.9 H Glucose 105 H POC Glucose 117 H Lactic Acid Calcium 7.9 L Phosphorus Magnesium Ferritin Direct Bilirubin AST ALT Alkaline Phosphatase Lactate Dehydrogenase Total Creatine Kinase C-Reactive Protein Total Protein Albumin Triglycerides Arterial Blood Glucose Arterial Blood Ionized Calcium Urine Creatinine Urine Chloride Vancomycin Trough Coronavirus (PCR) Crossmatch 07/08/20 07/08/20 07/08/20 04:09 11:34 17:05 WBC RBC Hgb Hct MCHC RDW Lymph % (Auto) [place] % (Auto) Lymph # (Auto) [place] # (Auto) Eos # (Auto) Seg Neutrophils % Seg Neuts % (Manual) Lymphocytes % (Manual) Monocytes % (Manual) Nucleated RBC % Seg Neutrophils # Seg Neutrophils # Man Lymphocytes # (Manual) Monocytes # (Manual) Eosinophils # (Manual) PT INR APTT D-Dimer Heparin Anti-Xa Level ABG pH 7.220 L POC ABG pCO2 60.5 H POC ABG pO2 ABG pO2 ABG HCO3 ABG Hemoglobin 8.2 L ABG Oxyhemoglobin ABG Sodium 131.3 L ABG Potassium 5.2 H ABG Chloride ABG Glucose 103 H Carboxyhemoglobin Sodium Potassium Chloride Carbon Dioxide BUN Creatinine Glucose POC Glucose 140 H 125 H Lactic Acid Calcium Phosphorus Magnesium Ferritin Direct Bilirubin AST ALT Alkaline Phosphatase Lactate Dehydrogenase Total Creatine Kinase C-Reactive Protein Total Protein Albumin Triglycerides Arterial Blood Glucose 103 H Arterial Blood Ionized Calcium 4.3 L Urine Creatinine Urine Chloride Vancomycin Trough Coronavirus (PCR) Crossmatch 07/08/20 07/08/20 07/09/20 20:21 23:43 05:10 WBC RBC Hgb Hct MCHC RDW Lymph % (Auto) [place] % (Auto) Lymph # (Auto) [place] # (Auto) Eos # (Auto) Seg Neutrophils % Seg Neuts % (Manual) Lymphocytes % (Manual) Monocytes % (Manual) Nucleated RBC % Seg Neutrophils # Seg Neutrophils # Man Lymphocytes # (Manual) Monocytes # (Manual) Eosinophils # (Manual) PT INR APTT D-Dimer Heparin Anti-Xa Level ABG pH 7.20 L POC ABG pCO2 69.8 H POC ABG pO2 138.9 H 76.1 L ABG pO2 ABG HCO3 ABG Hemoglobin 11.9 L 8.4 L ABG Oxyhemoglobin ABG Sodium 133.1 L 131.2 L ABG Potassium 5.0 H 4.7 H ABG Chloride ABG Glucose 120 H 102 H Carboxyhemoglobin Sodium Potassium Chloride Carbon Dioxide BUN Creatinine Glucose POC Glucose 118 H Lactic Acid Calcium Phosphorus Magnesium Ferritin Direct Bilirubin AST ALT Alkaline Phosphatase Lactate Dehydrogenase Total Creatine Kinase C-Reactive Protein Total Protein Albumin Triglycerides Arterial Blood Glucose 120 H 102 H Arterial Blood Ionized Calcium 4.4 L 4.3 L Urine Creatinine Urine Chloride Vancomycin Trough Coronavirus (PCR) Crossmatch 07/09/20 07/09/20 07/09/20 11:51 17:04 21:00 WBC RBC Hgb Hct MCHC RDW Lymph % (Auto) [place] % (Auto) Lymph # (Auto) [place] # (Auto) Eos # (Auto) Seg Neutrophils % Seg Neuts % (Manual) Lymphocytes % (Manual) Monocytes % (Manual) Nucleated RBC % Seg Neutrophils # Seg Neutrophils # Man Lymphocytes # (Manual) Monocytes # (Manual) Eosinophils # (Manual) PT INR APTT D-Dimer Heparin Anti-Xa Level ABG pH POC ABG pCO2 POC ABG pO2 114.2 H ABG pO2 ABG HCO3 ABG Hemoglobin 7.8 L ABG Oxyhemoglobin ABG Sodium 132.3 L ABG Potassium 4.6 H ABG Chloride ABG Glucose Carboxyhemoglobin Sodium Potassium Chloride Carbon Dioxide BUN Creatinine Glucose POC Glucose 113 H 111 H Lactic Acid Calcium Phosphorus Magnesium Ferritin Direct Bilirubin AST ALT Alkaline Phosphatase Lactate Dehydrogenase Total Creatine Kinase C-Reactive Protein Total Protein Albumin Triglycerides Arterial Blood Glucose Arterial Blood Ionized Calcium 4.4 L Urine Creatinine Urine Chloride Vancomycin Trough Coronavirus (PCR) Crossmatch 07/10/20 07/10/20 07/10/20 03:49 03:55 03:55 WBC 18.1 H RBC 2.37 L Hgb 6.8 L Hct 20.7 L MCHC RDW 16.9 H Lymph % (Auto) [place] % (Auto) Lymph # (Auto) [place] # (Auto) Eos # (Auto) Seg Neutrophils % Seg Neuts % (Manual) 79.0 H Lymphocytes % (Manual) 10.0 L Monocytes % (Manual) Nucleated RBC % 1.0 H Seg Neutrophils # Seg Neutrophils # Man 14.3 H Lymphocytes # (Manual) Monocytes # (Manual) Eosinophils # (Manual) 0.7 H PT INR APTT D-Dimer Heparin Anti-Xa Level ABG pH POC ABG pCO2 POC ABG pO2 ABG pO2 ABG HCO3 ABG Hemoglobin 7.7 L ABG Oxyhemoglobin ABG Sodium 130.3 L ABG Potassium 4.6 H ABG Chloride ABG Glucose Carboxyhemoglobin Sodium 136 L Potassium Chloride 96.0 L Carbon Dioxide BUN 76 H Creatinine 3.6 H Glucose POC Glucose Lactic Acid Calcium 7.4 L Phosphorus Magnesium Ferritin Direct Bilirubin AST ALT Alkaline Phosphatase Lactate Dehydrogenase Total Creatine Kinase C-Reactive Protein Total Protein Albumin Triglycerides Arterial Blood Glucose Arterial Blood Ionized Calcium 4.2 L Urine Creatinine Urine Chloride Vancomycin Trough Coronavirus (PCR) Crossmatch 07/10/20 07/11/20 07/11/20 13:24 04:08 06:52 WBC 26.0 H RBC 2.91 L Hgb 8.2 L Hct 24.8 L MCHC RDW 17.2 H Lymph % (Auto) [place] % (Auto) Lymph # (Auto) [place] # (Auto) Eos # (Auto) Seg Neutrophils % Seg Neuts % (Manual) Lymphocytes % (Manual) 1.0 L Monocytes % (Manual) 11.0 H Nucleated RBC % Seg Neutrophils # Seg Neutrophils # Man 16.9 H Lymphocytes # (Manual) 0.3 L Monocytes # (Manual) 2.9 H Eosinophils # (Manual) 1.0 H PT INR APTT D-Dimer Heparin Anti-Xa Level ABG pH POC ABG pCO2 POC ABG pO2 ABG pO2 ABG HCO3 ABG Hemoglobin 8.5 L ABG Oxyhemoglobin ABG Sodium 130.6 L ABG Potassium 4.9 H ABG Chloride ABG Glucose 105 H Carboxyhemoglobin Sodium Potassium Chloride Carbon Dioxide BUN Creatinine Glucose POC Glucose Lactic Acid Calcium Phosphorus Magnesium Ferritin Direct Bilirubin AST ALT Alkaline Phosphatase Lactate Dehydrogenase Total Creatine Kinase C-Reactive Protein Total Protein Albumin Triglycerides Arterial Blood Glucose 105 H Arterial Blood Ionized Calcium 4.1 L Urine Creatinine Urine Chloride Vancomycin Trough Coronavirus (PCR) Crossmatch See Detail 07/11/20 07/11/20 07/11/20 06:52 08:48 11:39 WBC RBC Hgb Hct MCHC RDW Lymph % (Auto) [place] % (Auto) Lymph # (Auto) [place] # (Auto) Eos # (Auto) Seg Neutrophils % Seg Neuts % (Manual) Lymphocytes % (Manual) Monocytes % (Manual) Nucleated RBC % Seg Neutrophils # Seg Neutrophils # Man Lymphocytes # (Manual) Monocytes # (Manual) Eosinophils # (Manual) PT INR APTT D-Dimer Heparin Anti-Xa Level ABG pH POC ABG pCO2 POC ABG pO2 ABG pO2 ABG HCO3 ABG Hemoglobin ABG Oxyhemoglobin ABG Sodium ABG Potassium ABG Chloride ABG Glucose Carboxyhemoglobin Sodium 133 L 134 L Potassium 5.3 H Chloride 93.5 L 94.8 L Carbon Dioxide BUN 101 H 99 H Creatinine 4.5 H 4.6 H Glucose 102 H POC Glucose 116 H Lactic Acid Calcium 7.8 L 7.6 L Phosphorus Magnesium Ferritin Direct Bilirubin AST ALT Alkaline Phosphatase Lactate Dehydrogenase Total Creatine Kinase C-Reactive Protein Total Protein Albumin Triglycerides Arterial Blood Glucose Arterial Blood Ionized Calcium Urine Creatinine Urine Chloride Vancomycin Trough Coronavirus (PCR) Crossmatch 07/11/20 07/12/20 07/12/20 17:23 00:04 03:20 WBC RBC Hgb Hct MCHC RDW Lymph % (Auto) [place] % (Auto) Lymph # (Auto) [place] # (Auto) Eos # (Auto) Seg Neutrophils % Seg Neuts % (Manual) Lymphocytes % (Manual) Monocytes % (Manual) Nucleated RBC % Seg Neutrophils # Seg Neutrophils # Man Lymphocytes # (Manual) Monocytes # (Manual) Eosinophils # (Manual) PT INR APTT D-Dimer Heparin Anti-Xa Level ABG pH POC ABG pCO2 49.1 H POC ABG pO2 130.3 H ABG pO2 ABG HCO3 ABG Hemoglobin 8.7 L ABG Oxyhemoglobin ABG Sodium 135.2 L ABG Potassium 4.7 H ABG Chloride ABG Glucose 128 H Carboxyhemoglobin Sodium Potassium Chloride Carbon Dioxide BUN Creatinine Glucose POC Glucose 142 H 113 H Lactic Acid Calcium Phosphorus Magnesium Ferritin Direct Bilirubin AST ALT Alkaline Phosphatase Lactate Dehydrogenase Total Creatine Kinase C-Reactive Protein Total Protein Albumin Triglycerides Arterial Blood Glucose 128 H Arterial Blood Ionized Calcium 4.4 L Urine Creatinine Urine Chloride Vancomycin Trough Coronavirus (PCR) Crossmatch 07/12/20 07/12/20 07/12/20 03:40 03:40 04:00 WBC 24.3 H RBC 2.83 L Hgb 8.0 L Hct 24.9 L MCHC RDW 17.7 H Lymph % (Auto) 5.6 L [place] % (Auto) 7.4 H Lymph # (Auto) [place] # (Auto) 1.8 H Eos # (Auto) 0.7 H Seg Neutrophils % 83.9 H Seg Neuts % (Manual) Lymphocytes % (Manual) Monocytes % (Manual) Nucleated RBC % Seg Neutrophils # 20.4 H Seg Neutrophils # Man Lymphocytes # (Manual) Monocytes # (Manual) Eosinophils # (Manual) PT INR APTT D-Dimer Heparin Anti-Xa Level ABG pH POC ABG pCO2 POC ABG pO2 ABG pO2 ABG HCO3 ABG Hemoglobin ABG Oxyhemoglobin ABG Sodium ABG Potassium ABG Chloride ABG Glucose Carboxyhemoglobin Sodium 134 L Potassium Chloride 95.5 L Carbon Dioxide BUN 79 H Creatinine 3.7 H Glucose 127 H POC Glucose Lactic Acid Calcium 7.8 L Phosphorus Magnesium Ferritin Direct Bilirubin AST ALT Alkaline Phosphatase Lactate Dehydrogenase Total Creatine Kinase C-Reactive Protein Total Protein Albumin Triglycerides 246 H Arterial Blood Glucose Arterial Blood Ionized Calcium Urine Creatinine Urine Chloride Vancomycin Trough Coronavirus (PCR) Crossmatch 07/12/20 07/12/20 07/12/20 05:48 11:50 17:29 WBC RBC Hgb Hct MCHC RDW Lymph % (Auto) [place] % (Auto) Lymph # (Auto) [place] # (Auto) Eos # (Auto) Seg Neutrophils % Seg Neuts % (Manual) Lymphocytes % (Manual) Monocytes % (Manual) Nucleated RBC % Seg Neutrophils # Seg Neutrophils # Man Lymphocytes # (Manual) Monocytes # (Manual) Eosinophils # (Manual) PT INR APTT D-Dimer Heparin Anti-Xa Level ABG pH POC ABG pCO2 POC ABG pO2 ABG pO2 ABG HCO3 ABG Hemoglobin ABG Oxyhemoglobin ABG Sodium ABG Potassium ABG Chloride ABG Glucose Carboxyhemoglobin Sodium Potassium Chloride Carbon Dioxide BUN Creatinine Glucose POC Glucose 136 H 113 H 110 H Lactic Acid Calcium Phosphorus Magnesium Ferritin Direct Bilirubin AST ALT Alkaline Phosphatase Lactate Dehydrogenase Total Creatine Kinase C-Reactive Protein Total Protein Albumin Triglycerides Arterial Blood Glucose Arterial Blood Ionized Calcium Urine Creatinine Urine Chloride Vancomycin Trough Coronavirus (PCR) Crossmatch 07/12/20 07/13/20 07/13/20 23:43 03:11 06:59 WBC RBC Hgb Hct MCHC RDW Lymph % (Auto) [place] % (Auto) Lymph # (Auto) [place] # (Auto) Eos # (Auto) Seg Neutrophils % Seg Neuts % (Manual) Lymphocytes % (Manual) Monocytes % (Manual) Nucleated RBC % Seg Neutrophils # Seg Neutrophils # Man Lymphocytes # (Manual) Monocytes # (Manual) Eosinophils # (Manual) PT INR APTT D-Dimer Heparin Anti-Xa Level ABG pH POC ABG pCO2 49.0 H POC ABG pO2 69.6 L ABG pO2 ABG HCO3 ABG Hemoglobin 8.5 L ABG Oxyhemoglobin 90.5 L ABG Sodium 133.6 L ABG Potassium 5.1 H ABG Chloride ABG Glucose 104 H Carboxyhemoglobin Sodium 133 L Potassium 5.7 H Chloride 96.3 L Carbon Dioxide 20 L D BUN 102 H Creatinine 4.4 H Glucose 101 H POC Glucose 120 H Lactic Acid Calcium 7.9 L Phosphorus Magnesium Ferritin Direct Bilirubin AST 61 H ALT 85 H Alkaline Phosphatase 144 H Lactate Dehydrogenase Total Creatine Kinase C-Reactive Protein Total Protein 5.4 L Albumin 2.0 L Triglycerides Arterial Blood Glucose 104 H Arterial Blood Ionized Calcium 4.3 L Urine Creatinine Urine Chloride Vancomycin Trough Coronavirus (PCR) Crossmatch 07/13/20 07/13/20 07/13/20 08:48 12:14 15:12 WBC 27.5 H RBC 3.03 L Hgb 8.7 L Hct 27.0 L MCHC RDW 18.0 H Lymph % (Auto) [place] % (Auto) Lymph # (Auto) [place] # (Auto) Eos # (Auto) Seg Neutrophils % Seg Neuts % (Manual) Lymphocytes % (Manual) Monocytes % (Manual) Nucleated RBC % Seg Neutrophils # Seg Neutrophils # Man Lymphocytes # (Manual) Monocytes # (Manual) Eosinophils # (Manual) PT INR APTT D-Dimer Heparin Anti-Xa Level ABG pH POC ABG pCO2 POC ABG pO2 ABG pO2 ABG HCO3 ABG Hemoglobin ABG Oxyhemoglobin ABG Sodium ABG Potassium ABG Chloride ABG Glucose Carboxyhemoglobin Sodium Potassium 5.5 H Chloride Carbon Dioxide BUN 88 H Creatinine 3.8 H Glucose 133 H POC Glucose 134 H Lactic Acid Calcium 7.5 L Phosphorus Magnesium Ferritin Direct Bilirubin AST ALT Alkaline Phosphatase Lactate Dehydrogenase Total Creatine Kinase C-Reactive Protein Total Protein Albumin Triglycerides Arterial Blood Glucose Arterial Blood Ionized Calcium Urine Creatinine Urine Chloride Vancomycin Trough Coronavirus (PCR) Crossmatch 07/13/20 07/13/20 07/13/20 16:46 16:47 18:46 WBC RBC Hgb 7.4 L Hct 22.1 L MCHC RDW Lymph % (Auto) [place] % (Auto) Lymph # (Auto) [place] # (Auto) Eos # (Auto) Seg Neutrophils % Seg Neuts % (Manual) Lymphocytes % (Manual) Monocytes % (Manual) Nucleated RBC % Seg Neutrophils # Seg Neutrophils # Man Lymphocytes # (Manual) Monocytes # (Manual) Eosinophils # (Manual) PT INR APTT D-Dimer Heparin Anti-Xa Level ABG pH POC ABG pCO2 POC ABG pO2 ABG pO2 ABG HCO3 ABG Hemoglobin ABG Oxyhemoglobin ABG Sodium ABG Potassium ABG Chloride ABG Glucose Carboxyhemoglobin Sodium Potassium Chloride Carbon Dioxide BUN Creatinine Glucose POC Glucose 118 H Lactic Acid Calcium Phosphorus Magnesium Ferritin Direct Bilirubin AST ALT Alkaline Phosphatase Lactate Dehydrogenase Total Creatine Kinase C-Reactive Protein Total Protein Albumin Triglycerides Arterial Blood Glucose Arterial Blood Ionized Calcium Urine Creatinine Urine Chloride Vancomycin Trough Coronavirus (PCR) Crossmatch See Detail 07/13/20 07/14/20 07/14/20 23:34 04:25 12:21 WBC RBC Hgb Hct MCHC RDW Lymph % (Auto) [place] % (Auto) Lymph # (Auto) [place] # (Auto) Eos # (Auto) Seg Neutrophils % Seg Neuts % (Manual) Lymphocytes % (Manual) Monocytes % (Manual) Nucleated RBC % Seg Neutrophils # Seg Neutrophils # Man Lymphocytes # (Manual) Monocytes # (Manual) Eosinophils # (Manual) PT INR APTT D-Dimer Heparin Anti-Xa Level ABG pH POC ABG pCO2 POC ABG pO2 ABG pO2 ABG HCO3 ABG Hemoglobin 8.9 L ABG Oxyhemoglobin ABG Sodium 133.1 L ABG Potassium 4.7 H ABG Chloride ABG Glucose 113 H Carboxyhemoglobin Sodium Potassium Chloride Carbon Dioxide BUN Creatinine Glucose POC Glucose 109 H 109 H Lactic Acid Calcium Phosphorus Magnesium Ferritin Direct Bilirubin AST ALT Alkaline Phosphatase Lactate Dehydrogenase Total Creatine Kinase C-Reactive Protein Total Protein Albumin Triglycerides Arterial Blood Glucose 113 H Arterial Blood Ionized Calcium 4.4 L Urine Creatinine Urine Chloride Vancomycin Trough Coronavirus (PCR) Crossmatch 07/14/20 07/14/20 07/14/20 16:44 16:44 20:20 WBC 30.1 H RBC 2.60 L Hgb 7.4 L 5.6 L* Hct 23.0 L 18.1 L* MCHC RDW 18.0 H Lymph % (Auto) [place] % (Auto) Lymph # (Auto) [place] # (Auto) Eos # (Auto) Seg Neutrophils % Seg Neuts % (Manual) 78.0 H Lymphocytes % (Manual) 5.0 L Monocytes % (Manual) Nucleated RBC % Seg Neutrophils # Seg Neutrophils # Man 23.5 H Lymphocytes # (Manual) Monocytes # (Manual) 0.9 H Eosinophils # (Manual) PT 15.6 H INR 1.26 H APTT D-Dimer Heparin Anti-Xa Level ABG pH POC ABG pCO2 POC ABG pO2 ABG pO2 ABG HCO3 ABG Hemoglobin ABG Oxyhemoglobin ABG Sodium ABG Potassium ABG Chloride ABG Glucose Carboxyhemoglobin Sodium Potassium Chloride Carbon Dioxide BUN Creatinine Glucose POC Glucose Lactic Acid Calcium Phosphorus Magnesium Ferritin Direct Bilirubin AST ALT Alkaline Phosphatase Lactate Dehydrogenase Total Creatine Kinase C-Reactive Protein Total Protein Albumin Triglycerides Arterial Blood Glucose Arterial Blood Ionized Calcium Urine Creatinine Urine Chloride Vancomycin Trough Coronavirus (PCR) Crossmatch 07/14/20 07/14/20 07/15/20 21:19 23:45 04:13 WBC RBC Hgb Hct MCHC RDW Lymph % (Auto) [place] % (Auto) Lymph # (Auto) [place] # (Auto) Eos # (Auto) Seg Neutrophils % Seg Neuts % (Manual) Lymphocytes % (Manual) Monocytes % (Manual) Nucleated RBC % Seg Neutrophils # Seg Neutrophils # Man Lymphocytes # (Manual) Monocytes # (Manual) Eosinophils # (Manual) PT INR APTT D-Dimer Heparin Anti-Xa Level ABG pH POC ABG pCO2 POC ABG pO2 ABG pO2 ABG HCO3 ABG Hemoglobin 5.8 L 6.0 L ABG Oxyhemoglobin 93.8 L ABG Sodium 132.2 L 130.3 L ABG Potassium 5.5 H 5.8 H ABG Chloride ABG Glucose 118 H 122 H Carboxyhemoglobin Sodium Potassium Chloride Carbon Dioxide BUN Creatinine Glucose POC Glucose 126 H Lactic Acid Calcium Phosphorus Magnesium Ferritin Direct Bilirubin AST ALT Alkaline Phosphatase Lactate Dehydrogenase Total Creatine Kinase C-Reactive Protein Total Protein Albumin Triglycerides Arterial Blood Glucose 118 H 122 H Arterial Blood Ionized Calcium 4.3 L 4.2 L Urine Creatinine Urine Chloride Vancomycin Trough Coronavirus (PCR) Crossmatch 07/15/20 07/15/20 07/15/20 08:21 08:21 08:38 WBC 45.5 H* RBC 2.42 L Hgb 7.1 L Hct 21.5 L MCHC RDW 16.5 H Lymph % (Auto) [place] % (Auto) Lymph # (Auto) [place] # (Auto) Eos # (Auto) Seg Neutrophils % Seg Neuts % (Manual) 89.0 H Lymphocytes % (Manual) 7.0 L Monocytes % (Manual) Nucleated RBC % Seg Neutrophils # Seg Neutrophils # Man 40.5 H Lymphocytes # (Manual) Monocytes # (Manual) 1.8 H Eosinophils # (Manual) PT 17.6 H INR 1.46 H APTT D-Dimer Heparin Anti-Xa Level ABG pH POC ABG pCO2 POC ABG pO2 ABG pO2 ABG HCO3 ABG Hemoglobin ABG Oxyhemoglobin ABG Sodium ABG Potassium ABG Chloride ABG Glucose Carboxyhemoglobin Sodium 131 L Potassium 6.0 H Chloride 94.6 L Carbon Dioxide 20 L BUN 116 H Creatinine 4.6 H Glucose 123 H POC Glucose Lactic Acid Calcium 7.6 L Phosphorus Magnesium Ferritin Direct Bilirubin AST ALT Alkaline Phosphatase Lactate Dehydrogenase Total Creatine Kinase C-Reactive Protein Total Protein Albumin Triglycerides Arterial Blood Glucose Arterial Blood Ionized Calcium Urine Creatinine Urine Chloride Vancomycin Trough Coronavirus (PCR) Crossmatch 07/15/20 07/15/20 07/15/20 11:29 17:23 18:52 WBC RBC Hgb Hct MCHC RDW Lymph % (Auto) [place] % (Auto) Lymph # (Auto) [place] # (Auto) Eos # (Auto) Seg Neutrophils % Seg Neuts % (Manual) Lymphocytes % (Manual) Monocytes % (Manual) Nucleated RBC % Seg Neutrophils # Seg Neutrophils # Man Lymphocytes # (Manual) Monocytes # (Manual) Eosinophils # (Manual) PT INR APTT D-Dimer Heparin Anti-Xa Level ABG pH POC ABG pCO2 POC ABG pO2 ABG pO2 ABG HCO3 ABG Hemoglobin ABG Oxyhemoglobin ABG Sodium ABG Potassium ABG Chloride ABG Glucose Carboxyhemoglobin Sodium Potassium Chloride 97.9 L Carbon Dioxide BUN 78 H Creatinine 3.1 H Glucose 114 H POC Glucose 181 H 120 H Lactic Acid Calcium 7.3 L Phosphorus Magnesium Ferritin Direct Bilirubin AST ALT Alkaline Phosphatase Lactate Dehydrogenase Total Creatine Kinase C-Reactive Protein Total Protein Albumin Triglycerides Arterial Blood Glucose Arterial Blood Ionized Calcium Urine Creatinine Urine Chloride Vancomycin Trough Coronavirus (PCR) Crossmatch 07/15/20 07/16/20 07/16/20 18:52 01:10 03:38 WBC RBC Hgb 9.9 L 8.5 L Hct 29.8 L D 24.7 L MCHC RDW Lymph % (Auto) [place] % (Auto) Lymph # (Auto) [place] # (Auto) Eos # (Auto) Seg Neutrophils % Seg Neuts % (Manual) Lymphocytes % (Manual) Monocytes % (Manual) Nucleated RBC % Seg Neutrophils # Seg Neutrophils # Man Lymphocytes # (Manual) Monocytes # (Manual) Eosinophils # (Manual) PT INR APTT D-Dimer Heparin Anti-Xa Level ABG pH 7.314 L POC ABG pCO2 48.5 H POC ABG pO2 58.9 L ABG pO2 ABG HCO3 ABG Hemoglobin 8.7 L ABG Oxyhemoglobin 86.7 L ABG Sodium 132.7 L ABG Potassium 5.2 H ABG Chloride ABG Glucose 99 H Carboxyhemoglobin Sodium Potassium Chloride Carbon Dioxide BUN Creatinine Glucose POC Glucose Lactic Acid Calcium Phosphorus Magnesium Ferritin Direct Bilirubin AST ALT Alkaline Phosphatase Lactate Dehydrogenase Total Creatine Kinase C-Reactive Protein Total Protein Albumin Triglycerides Arterial Blood Glucose 99 H Arterial Blood Ionized Calcium 3.9 L Urine Creatinine Urine Chloride Vancomycin Trough Coronavirus (PCR) Crossmatch 07/16/20 07/16/20 07/16/20 04:28 04:28 07:29 WBC 48.9 H* RBC 2.86 L Hgb 8.6 L 7.9 L Hct 25.4 L 24.4 L MCHC RDW 15.6 H Lymph % (Auto) [place] % (Auto) Lymph # (Auto) [place] # (Auto) Eos # (Auto) Seg Neutrophils % Seg Neuts % (Manual) Lymphocytes % (Manual) Monocytes % (Manual) Nucleated RBC % Seg Neutrophils # Seg Neutrophils # Man Lymphocytes # (Manual) Monocytes # (Manual) Eosinophils # (Manual) PT INR APTT D-Dimer Heparin Anti-Xa Level ABG pH POC ABG pCO2 POC ABG pO2 ABG pO2 ABG HCO3 ABG Hemoglobin ABG Oxyhemoglobin ABG Sodium ABG Potassium ABG Chloride ABG Glucose Carboxyhemoglobin Sodium 136 L Potassium 5.4 H Chloride 95.0 L Carbon Dioxide BUN 85 H Creatinine 3.4 H Glucose 66 L POC Glucose Lactic Acid Calcium 6.8 L Phosphorus Magnesium Ferritin Direct Bilirubin AST ALT Alkaline Phosphatase Lactate Dehydrogenase Total Creatine Kinase C-Reactive Protein Total Protein Albumin Triglycerides Arterial Blood Glucose Arterial Blood Ionized Calcium Urine Creatinine Urine Chloride Vancomycin Trough Coronavirus (PCR) Crossmatch 07/16/20 07/16/20 07/16/20 11:52 18:06 18:08 WBC RBC Hgb 7.4 L Hct 22.5 L MCHC RDW Lymph % (Auto) [place] % (Auto) Lymph # (Auto) [place] # (Auto) Eos # (Auto) Seg Neutrophils % Seg Neuts % (Manual) Lymphocytes % (Manual) Monocytes % (Manual) Nucleated RBC % Seg Neutrophils # Seg Neutrophils # Man Lymphocytes # (Manual) Monocytes # (Manual) Eosinophils # (Manual) PT INR APTT D-Dimer Heparin Anti-Xa Level ABG pH POC ABG pCO2 POC ABG pO2 ABG pO2 ABG HCO3 ABG Hemoglobin ABG Oxyhemoglobin ABG Sodium ABG Potassium ABG Chloride ABG Glucose Carboxyhemoglobin Sodium Potassium Chloride Carbon Dioxide BUN Creatinine Glucose POC Glucose 124 H 108 H Lactic Acid Calcium Phosphorus Magnesium Ferritin Direct Bilirubin AST ALT Alkaline Phosphatase Lactate Dehydrogenase Total Creatine Kinase C-Reactive Protein Total Protein Albumin Triglycerides Arterial Blood Glucose Arterial Blood Ionized Calcium Urine Creatinine Urine Chloride Vancomycin Trough Coronavirus (PCR) Crossmatch 07/17/20 03:27 WBC RBC Hgb Hct MCHC RDW Lymph % (Auto) [place] % (Auto) Lymph # (Auto) [place] # (Auto) Eos # (Auto) Seg Neutrophils % Seg Neuts % (Manual) Lymphocytes % (Manual) Monocytes % (Manual) Nucleated RBC % Seg Neutrophils # Seg Neutrophils # Man Lymphocytes # (Manual) Monocytes # (Manual) Eosinophils # (Manual) PT INR APTT D-Dimer Heparin Anti-Xa Level ABG pH 7.313 L POC ABG pCO2 50.9 H POC ABG pO2 ABG pO2 ABG HCO3 ABG Hemoglobin 7.5 L ABG Oxyhemoglobin ABG Sodium 131.8 L ABG Potassium 4.6 H ABG Chloride ABG Glucose 105 H Carboxyhemoglobin Sodium Potassium Chloride Carbon Dioxide BUN Creatinine Glucose POC Glucose Lactic Acid Calcium Phosphorus Magnesium Ferritin Direct Bilirubin AST ALT Alkaline Phosphatase Lactate Dehydrogenase Total Creatine Kinase C-Reactive Protein Total Protein Albumin Triglycerides Arterial Blood Glucose 105 H Arterial Blood Ionized Calcium 3.9 L Urine Creatinine Urine Chloride Vancomycin Trough Coronavirus (PCR) Crossmatch Chest x-ray: image reviewed (No post CVL pneumothorax) Allied health notes reviewed: nursing
--- NOTE | 2020-07-17 11:54 | Progress Note ---
Assessment and Plan - Patient Problems (1) Acute renal failure Current Visit: Yes Status: Acute Qualifiers: Acute renal failure type: with acute tubular necrosis Qualified Code(s): N17.0 - Acute kidney failure with tubular necrosis Plan to address problem: Likely prerenal in nature secondary to new onset of COVID-19 pneumonia with worsening sepsis and hypotension. Concern for acute tubular necrosis. Has now been on HD and remains on pressor support. No signs of renal recovery. Will continue to monitor. Overall prognosis remains poor at this time. (2) Pneumonia due to COVID-19 virus Current Visit: Yes Status: Acute Plan to address problem: Management per infectious disease recommendations. (3) Acute respiratory failure with hypoxia Current Visit: Yes Status: Acute Plan to address problem: Patient currently intubated at this time. Vent management per pulmonology recommendations. (4) Anemia Current Visit: Yes Status: Acute Qualifiers: Other causes of anemia: acute posthemorrhagic Plan to address problem: Per GI notes, EGD did not show evidence of active bleeding. Follow up further GI recommendations. Transfuse to maintain Hgb >7.0. (5) Hyperkalemia Current Visit: Yes Status: Acute Plan to address problem: Manage with HD. Subjective Date of service: 07/17/20 Principal diagnosis: ARF; Septic Shock; COVID-19 PNA; Atrial fibrillation; Obesity Interval history: patient remains intubated, on pressor support. Removed 1.2L UF. Objective - Exam Narrative Exam: Not directly examined in order to preserve PPE. - Vital Signs Vital signs: Vital Signs - 12hr 07/17/20 07/17/20 07/17/20 00:00 00:15 00:30 Temperature 98.4 F Pulse Rate 116 H 110 H 116 H Respiratory 15 15 13 Rate Blood Pressure 107/61 109/61 109/56 O2 Sat by Pulse 96 96 96 Oximetry 07/17/20 07/17/20 07/17/20 00:45 01:00 01:15 Temperature Pulse Rate 112 H 116 H 115 H Respiratory 16 19 19 Rate Blood Pressure 115/59 118/62 98/63 O2 Sat by Pulse 97 98 98 Oximetry 07/17/20 07/17/20 07/17/20 01:30 01:45 02:00 Temperature Pulse Rate 97 H 104 H 109 H Respiratory 14 14 26 H Rate Blood Pressure 106/63 122/57 123/66 O2 Sat by Pulse 95 97 98 Oximetry 07/17/20 07/17/20 07/17/20 02:15 02:30 02:45 Temperature Pulse Rate 116 H 116 H 103 H Respiratory 17 21 15 Rate Blood Pressure 117/67 115/67 121/68 O2 Sat by Pulse 98 96 99 Oximetry 07/17/20 07/17/20 07/17/20 03:01 03:15 03:30 Temperature Pulse Rate 124 H 118 H 116 H Respiratory 22 35 H 18 Rate Blood Pressure 121/68 181/70 147/77 O2 Sat by Pulse 94 85 92 Oximetry 07/17/20 07/17/20 07/17/20 03:38 03:45 04:00 Temperature 98.2 F Pulse Rate 122 H 119 H 120 H Respiratory 23 17 Rate Blood Pressure 147/77 147/77 103/51 O2 Sat by Pulse 90 97 96 Oximetry 07/17/20 07/17/20 07/17/20 04:15 04:30 04:45 Temperature Pulse Rate 124 H 118 H 118 H Respiratory 16 13 11 L Rate Blood Pressure 96/50 101/54 94/51 O2 Sat by Pulse 96 96 98 Oximetry 07/17/20 07/17/20 07/17/20 05:00 05:15 05:30 Temperature Pulse Rate 115 H 118 H 115 H Respiratory 25 H 32 H 28 H Rate Blood Pressure 95/65 101/54 129/57 O2 Sat by Pulse 100 97 97 Oximetry 07/17/20 07/17/20 07/17/20 05:45 06:00 06:15 Temperature Pulse Rate 123 H 117 H 119 H Respiratory 33 H 33 H 30 H Rate Blood Pressure 129/57 103/55 94/48 O2 Sat by Pulse 92 95 95 Oximetry 07/17/20 07/17/20 07/17/20 06:30 06:45 07:00 Temperature Pulse Rate 117 H 111 H 123 H Respiratory 27 H 25 H 28 H Rate Blood Pressure 91/51 92/48 88/53 O2 Sat by Pulse 94 97 99 Oximetry 07/17/20 07/17/20 07/17/20 07:15 07:30 07:45 Temperature Pulse Rate 116 H 119 H 122 H Respiratory 25 H 28 H 24 Rate Blood Pressure 93/47 93/47 O2 Sat by Pulse 99 98 99 Oximetry 07/17/20 07/17/20 07/17/20 07:55 08:00 08:15 Temperature Pulse Rate 124 H 123 H 119 H Respiratory 23 32 H Rate Blood Pressure 88/43 89/48 89/53 O2 Sat by Pulse 98 99 97 Oximetry 07/17/20 07/17/20 07/17/20 08:30 08:45 09:01 Temperature Pulse Rate 121 H 110 H 121 H Respiratory 17 20 19 Rate Blood Pressure 97/50 97/50 89/39 O2 Sat by Pulse 99 94 89 Oximetry 07/17/20 07/17/20 07/17/20 09:15 09:31 09:45 Temperature Pulse Rate 119 H 115 H 119 H Respiratory 17 21 24 Rate Blood Pressure 109/54 109/54 98/47 O2 Sat by Pulse 100 100 100 Oximetry 07/17/20 07/17/20 07/17/20 10:00 10:15 10:31 Temperature Pulse Rate 112 H 118 H 118 H Respiratory 27 H 25 H 26 H Rate Blood Pressure 123/81 123/81 168/72 O2 Sat by Pulse 100 100 100 Oximetry 07/17/20 07/17/20 07/17/20 10:45 11:00 11:15 Temperature Pulse Rate 121 H 120 H Respiratory 25 H 21 Rate Blood Pressure 123/88 114/60 98/57 O2 Sat by Pulse 100 100 99 Oximetry 07/17/20 07/17/20 11:23 11:30 Temperature Pulse Rate 122 H 119 H Respiratory 21 Rate Blood Pressure 98/57 99/49 O2 Sat by Pulse 100 99 Oximetry - Lab 07/16/20 18:08 07/16/20 04:28 Most recent lab results ABG pH 7.313 (7.320-7.450) L 07/17/20 03:27 ABG pCO2 56.4 mm Hg 07/05/20 04:30 ABG pO2 151.9 mm Hg (80.0-90.0) H 07/05/20 04:30 ABG HCO3 26.8 mmol/L (20.0-26.0) H 07/05/20 04:30 ABG O2 Saturation 98.7 % (95.0-99.0) 07/05/20 04:30 Calcium 6.8 mg/dL (8.4-10.2) L 07/16/20 04:28 Phosphorus 9.40 mg/dL (2.5-4.5) H 06/30/20 03:50 Magnesium 2.70 mg/dL (1.7-2.3) H 06/18/20 20:33 Urine Creatinine 192.4 mg/dL (0.1-20.0) H 06/18/20 15:00 Urine Sodium 28 mmol/L 06/18/20 15:00 Medications & Allergies - Medications Allergies/Adverse Reactions: Allergies No Known Allergies Allergy (Unverified 06/17/20 14:24) Home Medications: Home Medications Medication Instructions Recorded Confirmed Last Taken Type Losartan/Hydrochlorothiazide 1 each PO QDAY 06/19/20 06/19/20 Unknown History [Losartan-Hctz 100-25 mg Tab] amLODIPine [Norvasc] 5 mg PO DAILY 06/19/20 06/19/20 Unknown History Active Medications: Generic Name Dose Route Start Last Admin Trade Name Freq PRN Reason Stop Dose Admin Acetaminophen 650 mg 06/17/20 14:17 07/03/20 09:16 Acetaminophen 325 Mg Tab PO 650 mg Q4H PRN Administration Pain MILD(1-3)/Fever >100.5/ROBERTS Lipase/Protease/Amylase 1 each 06/19/20 12:15 Lipase 10,500/Protease 25,000/Amylase 43,750 (Units) Dr Kulkarni FEEDTUBE PRN PRN For Clogged Feeding Tube Ascorbic Acid 250 mg 06/17/20 22:00 07/17/20 10:09 Ascorbic Acid 250 Mg Tab PO Not Given BID CONNOR Cholecalciferol 1,000 unit 06/18/20 10:00 07/17/20 10:10 Cholecalciferol (Vit D3) 1000 Unit (25 Mcg) Tab PO Not Given DAILY CONNOR Docusate Sodium 100 mg 06/23/20 15:00 07/17/20 10:08 Docusate Sodium 100 Mg/10 Ml Oral Liqd FEEDTUBE Not Given BID CONNOR Fentanyl 50 mcg 06/18/20 01:02 07/09/20 00:20 Fentanyl 100 Mcg/2 Ml Inj IV 50 mcg Q10MIN PRN Administration ANALGESIA Heparin Sodium (Porcine) 5,000 unit 06/22/20 12:53 06/30/20 13:36 Heparin 10,000 Unit/1 Ml Vial IV 5,000 unit PAM PRN Administration hemodialysis Hydrophilic Ointment 1 applic 06/17/20 22:52 07/12/20 20:22 Lip Therapy Vaseline TP 1 applic Q2HR PRN Administration Dry Lips Propofol 1,000 mg in 100 mls @ 3.402 mls/hr 06/18/20 01:00 07/17/20 08:43 Diprivan 10 Mg/Ml IV 10 mcg/kg/min TITR CONNOR 6.804 mls/hr Administration Protocol 5 MCG/KG/MIN Fentanyl Citrate 2,000 mcg in 100 mls @ 8 mls/hr 06/18/20 02:00 07/17/20 08:44 Fentanyl Drip Premix IV 3 mcg/kg/hr TITR CONNOR 24 mls/hr Administration Protocol 1 MCG/KG/HR Norepinephrine 4 mg in 250 mls @ 7.5 mls/hr 07/08/20 02:06 07/17/20 04:57 Levophed Drip 4 Mg/Ns 250 Ml IV 8 mcg/min TITR CONNOR 30 mls/hr Administration Protocol 2 MCG/MIN Vasopressin 20 unit/ Sodium 101 mls @ 9.09 mls/hr 07/11/20 11:00 07/17/20 00:57 Chloride IV 0.03 units/min TITR CONNOR 9.09 mls/hr Administration Protocol 0.03 UNITS/MIN Amiodarone HCl 900 mg/ 500 mls @ 33.333 mls/hr 07/14/20 12:30 07/16/20 14:50 Dextrose IV 0.5 mg/min DIRECT CONNOR 16.667 mls/hr Administration Protocol 1 MG/MIN Cefepime HCl 2 gm in 100 mls @ 200 mls/hr 07/15/20 08:00 07/17/20 08:45 Cefepime/Ns 2 Gm/100 Ml IV 200 mls/hr Q24H CONNOR Administration Protocol Sodium Chloride 100 mls @ 999 mls/hr 07/15/20 14:18 Nacl 0.9% IV PAM PRN Hypotension Metronidazole 500 mg in 100 mls @ 100 mls/hr 07/15/20 20:00 07/17/20 02:59 Flagyl 500 Mg/100 Ml IV 100 mls/hr Q8H CONNOR Administration Protocol Vancomycin HCl 2,000 mg/ 540 mls @ 250 mls/hr 07/17/20 10:00 07/17/20 10:07 Sodium Chloride IV 07/17/20 12:09 250 mls/hr ONCE ONE Administration Sodium Chloride 500 mls @ 0 mls/hr 07/17/20 09:32 Nacl 0.9% 500 Ml IV 07/17/20 23:59 ONCE NR As Directed Insulin Human Regular 0 units 06/18/20 12:00 07/17/20 06:53 Insulin Regular, Human 100 Units/1 Ml SUB-Q Not Given Q6HR [facility] Protocol Multi-Ingred Cream/Lotion/Oil/Oint 1 applic 06/17/20 22:52 07/12/20 20:22 Mineral Oil/Petrolatum, White Ophth Oint 3.5 Gm OU 1 applic Q4HR PRN Administration Dry Eye(s) Ondansetron HCl 4 mg 06/17/20 14:17 Ondansetron 4 Mg/2 Ml Inj IV Q8H PRN Nausea And Vomiting Pantoprazole Sodium 40 mg 07/16/20 22:00 07/17/20 10:07 Pantoprazole 40 Mg Inj IV 40 mg BID CONNOR Administration Polyethylene Glycol 17 gm 06/23/20 15:00 07/17/20 10:08 Polyethylene Glycol 3350 17 Gm Powder PO Not Given QDAY [facility] Quetiapine Fumarate 200 mg 06/28/20 13:00 07/17/20 10:09 Quetiapine 200 Mg Tab PO Not Given BID CONNOR Simple Syrup 15 ml 06/19/20 12:15 Simple Syrup 15 Ml FEEDTUBE PRN PRN Hypoglycemia Simple Syrup 30 ml 06/19/20 12:15 Simple Syrup 15 Ml FEEDTUBE PRN PRN Hypoglycemia Sodium Bicarbonate 325 mg 06/19/20 12:15 07/11/20 20:00 Sodium Bicarbonate 325 Mg Tab FEEDTUBE 325 mg PRN PRN Administration For Clogged Feeding Tube Sodium Bicarbonate 650 mg 07/04/20 10:00 07/17/20 08:43 Sodium Bicarbonate 650 Mg Tab PO 650 mg TID CONNOR Administration Sodium Chloride 10 ml 06/17/20 22:00 07/17/20 09:16 Sodium Chloride 0.9% 10 Ml Flush Syringe IV 10 ml BID CONNOR Administration Sodium Chloride 10 ml 06/17/20 14:17 Sodium Chloride 0.9% 10 Ml Flush Syringe IV PRN PRN LINE FLUSH Sodium Polystyrene Sulfonate 15 gm 07/03/20 11:19 07/05/20 10:36 Sodium Polystyrene 15 Gm/60 Ml Oral Liqd PO 15 gm Q6HR PRN Administration Hyperkalemia Zinc Sulfate 220 mg 06/17/20 22:00 07/17/20 10:10 Zinc Sulfate 220 Mg Cap PO Not Given BID CONNOR
--- NOTE | 2020-07-17 12:08 | Progress Note ---
Assessment and Plan 1. GI bleed - EGD/Colon on 07/15 showing old blood throughout colon, with diverticulosis, and no active bleeding. EGD showed no source of bleeding. Discussed with pt's and family on 07/15. DDx - diverticular bleed, vs ischemia or AVMs. Clinically, old blood from rectum. Hgb drifted down to 7.4 yesterday evening. - monitor H/H and transfuse as needed - if actively bleeds, get CTA as soon as stable. - empiric PPI prophylaxis Subjective Date of service: 07/17/20 Principal diagnosis: ARF; Septic Shock; COVID-19 PNA; Atrial fibrillation; Obesity Interval history: Pt still passing dark red clots from rectum, around FCD when being cleaned, but no bright red. Otherwise, no acute changes. Objective - Exam Narrative Exam: Pt seen through glass doors, due to COVID. Intubated. Multiple lines in place. - Constitutional Vitals: Vital Signs - 12hr 07/17/20 07/17/20 07/17/20 00:15 00:30 00:45 Temperature Pulse Rate 110 H 116 H 112 H Pulse Rate [ From Monitor] Respiratory 15 13 16 Rate Blood Pressure 109/61 109/56 115/59 O2 Sat by Pulse 96 96 97 Oximetry 07/17/20 07/17/20 07/17/20 01:00 01:15 01:30 Temperature Pulse Rate 116 H 115 H 97 H Pulse Rate [ From Monitor] Respiratory 19 19 14 Rate Blood Pressure 118/62 98/63 106/63 O2 Sat by Pulse 98 98 95 Oximetry 07/17/20 07/17/20 07/17/20 01:45 02:00 02:15 Temperature Pulse Rate 104 H 109 H 116 H Pulse Rate [ From Monitor] Respiratory 14 26 H 17 Rate Blood Pressure 122/57 123/66 117/67 O2 Sat by Pulse 97 98 98 Oximetry 07/17/20 07/17/20 07/17/20 02:30 02:45 03:01 Temperature Pulse Rate 116 H 103 H 124 H Pulse Rate [ From Monitor] Respiratory 21 15 22 Rate Blood Pressure 115/67 121/68 121/68 O2 Sat by Pulse 96 99 94 Oximetry 07/17/20 07/17/20 07/17/20 03:15 03:30 03:38 Temperature Pulse Rate 118 H 116 H 122 H Pulse Rate [ From Monitor] Respiratory 35 H 18 Rate Blood Pressure 181/70 147/77 147/77 O2 Sat by Pulse 85 92 90 Oximetry 07/17/20 07/17/20 07/17/20 03:45 04:00 04:15 Temperature 98.2 F Pulse Rate 119 H 120 H 124 H Pulse Rate [ From Monitor] Respiratory 23 17 16 Rate Blood Pressure 147/77 103/51 96/50 O2 Sat by Pulse 97 96 96 Oximetry 07/17/20 07/17/20 07/17/20 04:30 04:45 05:00 Temperature Pulse Rate 118 H 118 H 115 H Pulse Rate [ From Monitor] Respiratory 13 11 L 25 H Rate Blood Pressure 101/54 94/51 95/65 O2 Sat by Pulse 96 98 100 Oximetry 07/17/20 07/17/20 07/17/20 05:15 05:30 05:45 Temperature Pulse Rate 118 H 115 H 123 H Pulse Rate [ From Monitor] Respiratory 32 H 28 H 33 H Rate Blood Pressure 101/54 129/57 129/57 O2 Sat by Pulse 97 97 92 Oximetry 07/17/20 07/17/20 07/17/20 06:00 06:15 06:30 Temperature Pulse Rate 117 H 119 H 117 H Pulse Rate [ From Monitor] Respiratory 33 H 30 H 27 H Rate Blood Pressure 103/55 94/48 91/51 O2 Sat by Pulse 95 95 94 Oximetry 07/17/20 07/17/20 07/17/20 06:45 07:00 07:15 Temperature Pulse Rate 111 H 123 H 116 H Pulse Rate [ From Monitor] Respiratory 25 H 28 H 25 H Rate Blood Pressure 92/48 88/53 93/47 O2 Sat by Pulse 97 99 99 Oximetry 07/17/20 07/17/20 07/17/20 07:30 07:45 07:55 Temperature Pulse Rate 119 H 122 H 124 H Pulse Rate [ From Monitor] Respiratory 28 H 24 Rate Blood Pressure 93/47 88/43 O2 Sat by Pulse 98 99 98 Oximetry 07/17/20 07/17/20 07/17/20 08:00 08:15 08:30 Temperature Pulse Rate 123 H 119 H 121 H Pulse Rate [ 124 H From Monitor] Respiratory 23 32 H 17 Rate Blood Pressure 89/48 89/53 97/50 O2 Sat by Pulse 99 97 99 Oximetry 07/17/20 07/17/2007/17/21 08:45 09:01 09:15 Temperature Pulse Rate 110 H 121 H 119 H Pulse Rate [ From Monitor] Respiratory 20 19 17 Rate Blood Pressure 97/50 89/39 109/54 O2 Sat by Pulse 94 89 100 Oximetry 07/17/20 07/17/20 07/17/20 09:31 09:45 10:00 Temperature Pulse Rate 115 H 119 H 112 H Pulse Rate [ From Monitor] Respiratory 21 24 27 H Rate Blood Pressure 109/54 98/47 123/81 O2 Sat by Pulse 100 100 100 Oximetry 07/17/20 07/17/20 07/17/20 10:15 10:31 10:45 Temperature Pulse Rate 118 H 118 H Pulse Rate [ From Monitor] Respiratory 25 H 26 H Rate Blood Pressure 123/81 168/72 123/88 O2 Sat by Pulse 100 100 100 Oximetry 07/17/20 07/17/20 07/17/20 11:00 11:15 11:23 Temperature Pulse Rate 121 H 120 H 122 H Pulse Rate [ From Monitor] Respiratory 25 H 21 Rate Blood Pressure 114/60 98/57 98/57 O2 Sat by Pulse 100 99 100 Oximetry 07/17/20 11:30 Temperature Pulse Rate 119 H Pulse Rate [ From Monitor] Respiratory 21 Rate Blood Pressure 99/49 O2 Sat by Pulse 99 Oximetry - Labs CBC & Chem 7: 07/16/20 18:08 07/16/20 04:28 Labs: Abnormal lab results 07/16/20 07/16/20 07/16/20 Range/Units 11:52 18:06 18:08 Hgb 7.4 L (11.8-15.2) gm/dl Hct 22.5 L (35.5-45.6) % ABG pH (7.320-7.450) POC ABG pCO2 (32.0-48.0) mmHg ABG Hemoglobin (12.0-17.5) ABG Sodium (136.0-145.0) mmol/L ABG Potassium (3.40-4.50) mmol/L ABG Glucose (65-95) mg/dL POC Glucose 124 H 108 H (70-105) mg/dL Arterial Blood Glucose (65-95) mg/dL Arterial Blood Ionized Calcium (4.6-5.3) mg/dL 07/17/20 Range/Units 03:27 Hgb (11.8-15.2) gm/dl Hct (35.5-45.6) % ABG pH 7.313 L (7.320-7.450) POC ABG pCO2 50.9 H (32.0-48.0) mmHg ABG Hemoglobin 7.5 L (12.0-17.5) ABG Sodium 131.8 L (136.0-145.0) mmol/L ABG Potassium 4.6 H (3.40-4.50) mmol/L ABG Glucose 105 H (65-95) mg/dL POC Glucose (70-105) mg/dL Arterial Blood Glucose 105 H (65-95) mg/dL Arterial Blood Ionized Calcium 3.9 L (4.6-5.3) mg/dL Medications & Allergies - Medications Allergies/Adverse Reactions: Allergies No Known Allergies Allergy (Unverified 06/17/20 14:24) Home Medications: Home Medications Medication Instructions Recorded Confirmed Last Taken Type Losartan/Hydrochlorothiazide 1 each PO QDAY 06/19/20 06/19/20 Unknown History [Losartan-Hctz 100-25 mg Tab] amLODIPine [Norvasc] 5 mg PO DAILY 06/19/20 06/19/20 Unknown History Active Medications: Generic Name Dose Route Start Last Admin Trade Name Freq PRN Reason Stop Dose Admin Acetaminophen 650 mg 06/17/20 14:17 07/03/20 09:16 Acetaminophen 325 Mg Tab PO 650 mg Q4H PRN Administration Pain MILD(1-3)/Fever >100.5/ROBERTS Lipase/Protease/Amylase 1 each 06/19/20 12:15 Lipase 10,500/Protease 25,000/Amylase 43,750 (Units) Dr Shad BOYLE PRN PRN For Clogged Feeding Tube Ascorbic Acid 250 mg 06/17/20 22:00 07/17/20 10:09 Ascorbic Acid 250 Mg Tab PO Not Given BID CONNOR Cholecalciferol 1,000 unit 06/18/20 10:00 07/17/20 10:10 Cholecalciferol (Vit D3) 1000 Unit (25 Mcg) Tab PO Not Given DAILY CONNOR Docusate Sodium 100 mg 06/23/20 15:00 07/17/20 10:08 Docusate Sodium 100 Mg/10 Ml Oral Liqd FEEDTUBE Not Given BID CONNOR Fentanyl 50 mcg 06/18/20 01:02 07/09/20 00:20 Fentanyl 100 Mcg/2 Ml Inj IV 50 mcg Q10MIN PRN Administration ANALGESIA Heparin Sodium (Porcine) 5,000 unit 06/22/20 12:53 06/30/20 13:36 Heparin 10,000 Unit/1 Ml Vial IV 5,000 unit PAM PRN Administration hemodialysis Hydrophilic Ointment 1 applic 06/17/20 22:52 07/12/20 20:22 Lip Therapy Vaseline TP 1 applic Q2HR PRN Administration Dry Lips Propofol 1,000 mg in 100 mls @ 3.402 mls/hr 06/18/20 01:00 07/17/20 08:43 Diprivan 10 Mg/Ml IV 10 mcg/kg/min TITR CONNOR 6.804 mls/hr Administration Protocol 5 MCG/KG/MIN Fentanyl Citrate 2,000 mcg in 100 mls @ 8 mls/hr 06/18/20 02:00 07/17/20 08:44 Fentanyl Drip Premix IV 3 mcg/kg/hr TITR CONNOR 24 mls/hr Administration Protocol 1 MCG/KG/HR Norepinephrine 4 mg in 250 mls @ 7.5 mls/hr 07/08/20 02:06 07/17/20 04:57 Levophed Drip 4 Mg/Ns 250 Ml IV 8 mcg/min TITR CONNOR 30 mls/hr Administration Protocol 2 MCG/MIN Vasopressin 20 unit/ Sodium 101 mls @ 9.09 mls/hr 07/11/20 11:00 07/17/20 00:57 Chloride IV 0.03 units/min TITR CONNOR 9.09 mls/hr Administration Protocol 0.03 UNITS/MIN Amiodarone HCl 900 mg/ 500 mls @ 33.333 mls/hr 07/14/20 12:30 07/16/20 14:50 Dextrose IV 0.5 mg/min DIRECT CONNOR 16.667 mls/hr Administration Protocol 1 MG/MIN Cefepime HCl 2 gm in 100 mls @ 200 mls/hr 07/15/20 08:00 07/17/20 08:45 Cefepime/Ns 2 Gm/100 Ml IV 200 mls/hr Q24H CONNOR Administration Protocol Sodium Chloride 100 mls @ 999 mls/hr 07/15/20 14:18 Nacl 0.9% IV PAM PRN Hypotension Metronidazole 500 mg in 100 mls @ 100 mls/hr 07/15/20 20:00 07/17/20 02:59 Flagyl 500 Mg/100 Ml IV 100 mls/hr Q8H CONNOR Administration Protocol Vancomycin HCl 2,000 mg/ 540 mls @ 250 mls/hr 07/17/20 10:00 07/17/20 10:07 Sodium Chloride IV 07/17/20 12:09 250 mls/hr ONCE ONE Administration Sodium Chloride 500 mls @ 0 mls/hr 07/17/20 09:32 Nacl 0.9% 500 Ml IV 07/17/20 23:59 ONCE NR As Directed Insulin Human Regular 0 units 06/18/20 12:00 07/17/20 06:53 Insulin Regular, Human 100 Units/1 Ml SUB-Q Not Given Q6HR [facility] Protocol Multi-Ingred Cream/Lotion/Oil/Oint 1 applic 06/17/20 22:52 07/12/20 20:22 Mineral Oil/Petrolatum, White Ophth Oint 3.5 Gm OU 1 applic Q4HR PRN Administration Dry Eye(s) Ondansetron HCl 4 mg 06/17/20 14:17 Ondansetron 4 Mg/2 Ml Inj IV Q8H PRN Nausea And Vomiting Pantoprazole Sodium 40 mg 07/16/20 22:00 07/17/20 10:07 Pantoprazole 40 Mg Inj IV 40 mg BID CONNOR Administration Polyethylene Glycol 17 gm 06/23/20 15:00 07/17/20 10:08 Polyethylene Glycol 3350 17 Gm Powder PO Not Given QDAY [facility] Quetiapine Fumarate 200 mg 06/28/20 13:00 07/17/20 10:09 Quetiapine 200 Mg Tab PO Not Given BID CONNOR Simple Syrup 15 ml 06/19/20 12:15 Simple Syrup 15 Ml FEEDTUBE PRN PRN Hypoglycemia Simple Syrup 30 ml 06/19/20 12:15 Simple Syrup 15 Ml FEEDTUBE PRN PRN Hypoglycemia Sodium Bicarbonate 325 mg 06/19/20 12:15 07/11/20 20:00 Sodium Bicarbonate 325 Mg Tab FEEDTUBE 325 mg PRN PRN Administration For Clogged Feeding Tube Sodium Bicarbonate 650 mg 07/04/20 10:00 07/17/20 08:43 Sodium Bicarbonate 650 Mg Tab PO 650 mg TID [facility] Administration Sodium Chloride 10 ml 06/17/20 22:00 07/17/20 09:16 Sodium Chloride 0.9% 10 Ml Flush Syringe IV 10 ml BID CONNOR Administration Sodium Chloride 10 ml 06/17/20 14:17 Sodium Chloride 0.9% 10 Ml Flush Syringe IV PRN PRN LINE FLUSH Sodium Polystyrene Sulfonate 15 gm 07/03/20 11:19 07/05/20 10:36 Sodium Polystyrene 15 Gm/60 Ml Oral Liqd PO 15 gm Q6HR PRN Administration Hyperkalemia Zinc Sulfate 220 mg 06/17/20 22:00 07/17/20 10:10 Zinc Sulfate 220 Mg Cap PO Not Given BID [facility] HEART Score - HEART Score Troponin: Troponin T < 0.010 ng/mL (0.00-0.029) 06/17/20 12:33
[2020-07-17] MEDS ORDERED: MIDODRINE 5 MG TAB PO ONE (12:21)
[2020-07-17] MEDS ORDERED: DEXTROSE 50% IN WATER (25GM) 50 ML SYRINGE IV ONE (12:27)
--- NOTE | 2020-07-17 13:58 | Procedure Note ---
Date of procedure: 07/17/20 Pre-op diagnosis: Septic Shock; AHRF Post-op diagnosis: same Procedure: Right IJ CVL placement (Full note dictated # [id number]) Please see dictated notes for full details
--- NOTE | 2020-07-17 14:08 | Procedure Note ---
PULMONARY PROCEDURE NOTE PROCEDURE: Right internal jugular central venous catheter placement, I believe was a 17 cm catheter. INDICATIONS: Need for vasopressor support and sedation in the patient on mechanical ventilatory support, who is also hypotensive. Consent was informed and witness obtained from the patient's over the telephone and with the nurse as the weakness. COMPLICATIONS: No immediate procedural complications. Post-procedure chest x-ray is pending. DESCRIPTION OF PROCEDURE: After informed and witnessed consent as well as premedication, of note, the patient was on a propofol drip as well as fentanyl drip, the area of the right upper anterior triangle of the neck was sterilely prepped and draped to include sterile gowns, gloves, full barrier protection, hat and mask. Generous local anesthetic agent was given prior to needle sticks. The procedure was ultrasound-guided. After cleaning the ultrasound machine in the sterile probe cover, the right internal jugular was located. It was a large vessel and very easily compressible. It was accessed on the fresh stick with a central venous catheter needle. Good looking venous blood return was obtained. Wire was threaded through the needle and catheter was advanced over the wire after dilatation. Again, good looking venous blood return was obtained. Catheter was sutured in place with 0 silk sutures and a purse string suture was placed at the stomal site. The patient tolerated the procedure well. No immediate complications. Post-procedure chest x-ray is pending. JOB# [id number] DREA/MADONNA
--- NOTE | 2020-07-17 15:35 | XRay Report ---
CHEST 1 VIEW 07/17/2020 2:02 PM INDICATION / CLINICAL INFORMATION: line placement. COMPARISON: One view of the chest from 07/13/2020. FINDINGS: SUPPORT DEVICES: Interval placement of a right internal jugular CVL, terminating over the distal SVC. Otherwise unchanged. HEART / MEDIASTINUM: Stable size of the cardiac silhouette with interval development of pneumomediast inum. LUNGS / PLEURA: Increased bilateral airspace opacities. No significant pleural effusion. No pneumotho rax. ADDITIONAL FINDINGS: Interval development of subcutaneous gas along the left neck and chest. IMPRESSION: 1. Satisfactory positioning of a right internal jugular CVL with interval development of pneumomedias tinum and subcutaneous gas along the left neck and chest. 2. Increased bilateral airspace opacities. IMPORTANT FINDING: Time of Communication (BRUSH OPERATOR/CDT): 14:31 Licensed Practitioner Receiving Report: PATO Allen nurse Signer Name: Altaf May MD Signed: 07/17/2020 3:31 PM Workstation Name: [id number]
[2020-07-17 15:38] LABS: Hemoglobin 6.1 gm/dl (11.8-15.2); Mean Corpuscular HGB Conc 33 % (32-34); Mean Corpuscular Volume 90 fl (84-94); Platelet Count 250 K/mm3 (140-440); Red Blood Count 2.05 M/mm3 (3.65-5.03); Red Cell Distribution Width 15.6 % (13.2-15.2)
[2020-07-17 15:40] LABS: Hematocrit 18.4 % (35.5-45.6)
[2020-07-17 15:47] LABS: INR 1.52 (0.87-1.13)
[2020-07-17 16:20] LABS: Anisocytosis RARE; Total Cells Counted 100
[2020-07-17] MEDS: AMIODARONE 900 MG in DEXTROSE 5% IN WATER 482 ML IV SCH (18:21)
--- NOTE | 2020-07-17 20:55 | Event Note ---
Date: 07/17/20 Dr. Magallon called today to call us back to the case. Patient with fungal blood cultures growing GPC in chains and clusters. -Cotninue cefepime and metronidazole -Added vancomycin. -Follow up blood cultures. Dr. Fajardo taking over tomorrow,
[2020-07-18] MEDS: INSULIN REGULAR, HUMAN 100 UNITS/1 ML SUB-Q SCH ×4 (00:49→17:22)
[2020-07-18] MEDS: fentaNYL DRIP Premix 2,000 MCG/100 ML BAG IV SCH ×6 (01:36→22:17)
[2020-07-18] MEDS: metroNIDAZOLE/NS 500 MG/100 ML 500 MG/100 ML BAG IV SCH ×2 (04:11→11:56)
[2020-07-18 05:24] LABS: Hematocrit 25.6 % (35.5-45.6); Hemoglobin 8.5 gm/dl (11.8-15.2); Mean Corpuscular HGB Conc 33 % (32-34); Mean Corpuscular Volume 88 fl (84-94); Platelet Count 219 K/mm3 (140-440); Red Blood Count 2.91 M/mm3 (3.65-5.03); Red Cell Distribution Width 14.5 % (13.2-15.2)
[2020-07-18 05:48] LABS: Albumin 1.7 g/dL (3.9-5); Calcium 6.9 mg/dL (8.4-10.2)
--- NOTE | 2020-07-18 05:53 | Progress Note ---
Assessment and Plan Acute hypoxemic respiratory failure due to COVID-19 Severe COVID infection Severe Sepsis with shock Bilateral pneumonia Acute kidney injury (GIRISH) with acute tubular necrosis (ATN) on HD Elevated liver enzymes Obesity Antifungal therapy Transfuse 2 more units of blood, still has some bloody output in [facility] rectal tube Called his Sherri, [phone], and updated her. She had questions about the CTscan abdomen and pelvis results, I assured her I would call her with the results once the test was concluded Trach and PEG placement once his ventilatory demands are safe enough for the procedure - Monitor blood pressure closely while optimizing sedation, -VAP bundle addressed, aspiration precautions HOB >40 - continue lung protective strategies, permissive hypercapnic acceptable. - continue bronchodilators with pulmonary hygiene per RT - titrate supplemental oxygen to keep O2 sats>90% - continue tube feeds as tolerated - continue HD/UF per nephrology team for toxin and volume clearance - accuchecks with glycemic control per SSI (While critically ill target blood glucose of 140-180 mg/dL; avoid hypoglycemia) - sedation prn for target RASS -1 to -2 - continue enteral nutritional support at goal rate as tolerated - s/p antibiotics per ID recommendations, reconsulted - Monitor liver function test ,avoid hepatotoxic agents - azotemia per nephrology recs - Avoid nephrotoxins, renally dose all medications, conservative fluid management - continue to avoid benzodiazepines, reduce the possibility of delirium, - prn analgesia per CPOT score - Maintenance of sleep-wake cycle, avoid delirium - Stress ulcer prophylaxis, Famotidine - PT/OT/ROM exercises - Mobility protocols for pressure ulcer prevention - CXR, ABG as clinically indicated - Supportive transfusions to keep HgB >7g/dL - Monitor hemodynamics closely - continue other care per attending / other consultants COVID SPECIFIC INTERVENTIONS - continue steroids: Dexamethasone - s/p Remdesivir -s/p Critical care proning - monitor inflammatory markers per facility protocol - continue contact and airborne isolation CONDITION: CRITICAL PROGNOSIS: GUARDED CODE STATUS: FULL CODE The high probability of a clinically significant, sudden or life-threatening deterioration of the [respiratory, cardiovascular, hematologic & neurologic] system(s) required my full and direct attention, intervention and personal management. The aggregate critical care time was [35] minutes without overlap. Time includes spent on; [x] Data Review and interpretation [x] Patient assessment and monitoring of vital signs [x] Documentation [x] Medication orders and management Subjective Date of service: 07/18/20 Principal diagnosis: ARF; Septic Shock; COVID-19 PNA; Atrial fibrillation; Obesity Interval history: Follow up for severe sepsis with septic shock; COVID-ARDS; acute hypoxemic resp failure on MVS: GIRISH/ATN Seen and examined. Vitals, labs, medications, chart reviewed. Discussed with nursing and respiratory staff. Remains critically ill on MVS,s/p HD yesterday via a left femoral Trialysis catheter Fungemia, new RIJ CVL placed adn ID reconsulted yesterday Off Norepinephrine this morning, s/p 2 units of PRBC PEEP +12/FIO2 55 %, Objective Vital Signs - 12hr 07/17/20 07/17/20 07/17/20 18:00 18:08 18:15 Temperature 98.1 F Pulse Rate 111 H 115 H 117 H Pulse Rate [ From Monitor] Respiratory 25 H 26 H 25 H Rate Blood Pressure 125/49 125/49 119/53 O2 Sat by Pulse 100 96 100 Oximetry 07/17/20 07/17/20 07/17/20 18:30 18:45 19:00 Temperature Pulse Rate 115 H 109 H 112 H Pulse Rate [ From Monitor] Respiratory 24 25 H 25 H Rate Blood Pressure 117/58 102/61 109/58 O2 Sat by Pulse 100 100 100 Oximetry 07/17/20 07/17/20 07/17/20 19:15 19:30 19:45 Temperature Pulse Rate 112 H 112 H 105 H Pulse Rate [ From Monitor] Respiratory 25 H 25 H 25 H Rate Blood Pressure 116/61 120/57 118/63 O2 Sat by Pulse 100 100 100 Oximetry 07/17/20 07/17/20 07/17/20 19:50 19:57 20:00 Temperature 97.3 F L Pulse Rate 100 H 109 H Pulse Rate [ 124 H From Monitor] Respiratory 22 Rate Blood Pressure 123/62 O2 Sat by Pulse 100 Oximetry 07/17/20 07/17/20 07/17/20 20:11 20:16 20:21 Temperature 97.6 F Pulse Rate 112 H 110 H 105 H Pulse Rate [ From Monitor] Respiratory 25 H 22 25 H Rate Blood Pressure 123/62 101/52 101/52 O2 Sat by Pulse 100 100 100 Oximetry 07/17/20 07/17/20 07/17/20 20:30 20:34 20:45 Temperature 98.1 F Pulse Rate 116 H 109 H Pulse Rate [ From Monitor] Respiratory 25 H 22 Rate Blood Pressure 99/50 94/54 O2 Sat by Pulse 100 100 Oximetry 07/17/20 07/17/20 07/17/20 21:00 21:15 21:30 Temperature Pulse Rate 98 H 93 H 97 H Pulse Rate [ From Monitor] Respiratory 16 25 H 20 Rate Blood Pressure 87/47 87/47 124/73 O2 Sat by Pulse 100 100 100 Oximetry 07/17/20 07/17/20 07/17/20 21:45 22:00 22:15 Temperature Pulse Rate 92 H 94 H 84 Pulse Rate [ From Monitor] Respiratory 25 H 25 H 25 H Rate Blood Pressure 124/73 145/94 140/90 O2 Sat by Pulse 100 100 100 Oximetry 07/17/20 07/17/20 07/17/20 22:30 22:45 23:00 Temperature Pulse Rate 91 H 99 H 110 H Pulse Rate [ From Monitor] Respiratory 24 26 H 25 H Rate Blood Pressure 140/81 140/81 137/83 O2 Sat by Pulse 100 100 100 Oximetry 07/17/20 07/17/20 07/17/20 23:15 23:30 23:42 Temperature 98.1 F Pulse Rate 102 H 112 H Pulse Rate [ From Monitor] Respiratory 25 H 25 H Rate Blood Pressure 137/83 122/63 O2 Sat by Pulse 100 100 Oximetry 07/17/20 07/17/20 07/18/20 23:44 23:45 00:00 Temperature 97.0 F L Pulse Rate 95 H 98 H Pulse Rate [ 124 H From Monitor] Respiratory 22 25 H 27 H Rate Blood Pressure 126/69 119/67 O2 Sat by Pulse 100 100 100 Oximetry 07/18/20 07/18/20 07/18/20 00:05 00:15 00:20 Temperature Pulse Rate 99 H 111 H 105 H Pulse Rate [ From Monitor] Respiratory 25 H 25 H 0 L Rate Blood Pressure 119/67 131/72 119/67 O2 Sat by Pulse 100 100 100 Oximetry 07/18/20 07/18/20 07/18/20 00:30 00:45 01:00 Temperature Pulse Rate 101 H 87 105 H Pulse Rate [ From Monitor] Respiratory 26 H 25 H 25 H Rate Blood Pressure 117/68 135/75 108/64 O2 Sat by Pulse 100 100 100 Oximetry 07/18/20 07/18/20 07/18/20 01:15 01:30 01:45 Temperature Pulse Rate 97 H 98 H 110 H Pulse Rate [ From Monitor] Respiratory 28 H 13 25 H Rate Blood Pressure 125/73 116/65 106/56 O2 Sat by Pulse 100 100 100 Oximetry 07/18/20 07/18/20 07/18/20 02:00 02:15 02:31 Temperature Pulse Rate 91 H 86 101 H Pulse Rate [ From Monitor] Respiratory 19 12 13 Rate Blood Pressure 113/65 112/61 129/64 O2 Sat by Pulse 100 100 100 Oximetry 07/18/20 07/18/20 07/18/20 02:45 03:00 03:05 Temperature Pulse Rate 92 H 96 H 87 Pulse Rate [ From Monitor] Respiratory 13 26 H Rate Blood Pressure 106/57 101/54 100/59 O2 Sat by Pulse 100 100 100 Oximetry 07/18/20 07/18/20 07/18/20 03:15 03:30 03:45 Temperature Pulse Rate 87 94 H 64 Pulse Rate [ From Monitor] Respiratory 26 H 26 H 25 H Rate Blood Pressure 100/59 97/55 97/45 O2 Sat by Pulse 100 100 100 Oximetry 07/18/20 07/18/20 03 03:55 04:00 04:01 Temperature 97.1 F L Pulse Rate 62 62 Pulse Rate [ 124 H From Monitor] Respiratory 22 25 H Rate Blood Pressure 116/50 O2 Sat by Pulse 100 100 Oximetry 07/18/20 07/18/20 07/18/20 04:15 04:30 04:45 Temperature Pulse Rate 62 64 64 Pulse Rate [ From Monitor] Respiratory 10 L 25 H 25 H Rate Blood Pressure 116/50 110/44 104/38 O2 Sat by Pulse 100 100 100 Oximetry 07/18/20 07/18/20 05:01 05:15 Temperature Pulse Rate 62 65 Pulse Rate [ From Monitor] Respiratory 23 16 Rate Blood Pressure 127/53 127/53 O2 Sat by Pulse 100 100 Oximetry Constitutional: appears uncomfortable, other (morbidly obese, atraumatic, normocephalic, mild resp distress, orally intubated) Eyes: non-icteric ENT: oropharynx dry, other (ETT 24 cm TROY + blood crusted lips) Neck: supple, no lymphadenopathy, other (Large , short neck) Effort: mildly labored Ascultation: Bilateral: clear, diminished breath sounds, rhonchi (scant) Percussion: Bilateral: not dull Cardiovascular: irregular rhythm, other (S1,S2) Gastrointestinal: normoactive bowel sounds, soft, non-tender, non-distended (protuberant), other (lizeth-rectal tube slow oozing) Integumentary: rash, other (Femoral CVC, Newell catheter) Extremities: pink and warm, pulses normal, no ischemia or petechiae, edema (trace to 1+) Neurologic: non-focal exam (grossly), pupils equal and round, other (unable to assess, sedated) Psychiatric: other (unable to assess, sedated) CBC and BMP: 07/20/20 06:07 07/19/20 09:15 ABG, PT/INR, D-dimer: ABG ABG pH 7.35 (7.320-7.450) 07/18/20 03:10 POC ABG pCO2 43.3 mmHg (32.0-48.0) 07/18/20 03:10 ABG pCO2 56.4 mm Hg 07/05/20 04:30 POC ABG pO2 114.9 mmHg (83-108) H 07/18/20 03:10 ABG pO2 151.9 mm Hg (80.0-90.0) H 07/05/20 04:30 POC ABG HCO3 23.4 07/18/20 03:10 ABG O2 Saturation 98.7 % (95.0-99.0) 07/05/20 04:30 PT/INR, D-dimer PT 18.2 Sec. (12.2-14.9) H 07/17/20 15:25 INR 1.52 (0.87-1.13) H 07/17/20 15:25 D-Dimer 6608.00 ng/mlDDU (0-234) H 07/03/20 14:50 Abnormal lab findings: Abnormal Labs 06/17/20 06/17/20 06/17/20 12:33 12:33 12:33 WBC 19.5 H RBC 5.18 H Hgb 15.5 H Hct MCHC RDW Lymph % (Auto) 3.8 L [place] % (Auto) Lymph # (Auto) 0.7 L [place] # (Auto) Eos # (Auto) Seg Neutrophils % Seg Neuts % (Manual) 99.0 H Lymphocytes % (Manual) 1.0 L Monocytes % (Manual) Nucleated RBC % Seg Neutrophils # 18.2 H Seg Neutrophils # Man 19.3 H Lymphocytes # (Manual) 0.2 L Monocytes # (Manual) Eosinophils # (Manual) PT 16.5 H INR 1.33 H APTT D-Dimer 1025.04 H Heparin Anti-Xa Level ABG pH POC ABG pCO2 POC ABG pO2 ABG pO2 ABG HCO3 ABG Hemoglobin ABG Oxyhemoglobin ABG Sodium ABG Potassium ABG Chloride ABG Glucose Carboxyhemoglobin Sodium 130 L Potassium 3.4 L Chloride 95.0 L Carbon Dioxide BUN 21 H Creatinine Glucose 137 H POC Glucose Lactic Acid Calcium 7.9 L Phosphorus Magnesium Ferritin Direct Bilirubin AST 84 H ALT 67 H Alkaline Phosphatase Lactate Dehydrogenase 437 H Total Creatine Kinase 310 H C-Reactive Protein 27.90 H Total Protein Albumin 2.9 L Triglycerides Arterial Blood Glucose Arterial Blood Ionized Calcium Urine Creatinine Urine Chloride Vancomycin Trough Coronavirus (PCR) Crossmatch 06/17/20 06/17/20 06/17/20 12:33 12:33 14:48 WBC RBC Hgb Hct MCHC RDW Lymph % (Auto) [place] % (Auto) Lymph # (Auto) [place] # (Auto) Eos # (Auto) Seg Neutrophils % Seg Neuts % (Manual) Lymphocytes % (Manual) Monocytes % (Manual) Nucleated RBC % Seg Neutrophils # Seg Neutrophils # Man Lymphocytes # (Manual) Monocytes # (Manual) Eosinophils # (Manual) PT INR APTT D-Dimer Heparin Anti-Xa Level ABG pH POC ABG pCO2 POC ABG pO2 ABG pO2 ABG HCO3 ABG Hemoglobin ABG Oxyhemoglobin ABG Sodium ABG Potassium ABG Chloride ABG Glucose Carboxyhemoglobin Sodium Potassium Chloride Carbon Dioxide BUN Creatinine Glucose POC Glucose Lactic Acid 2.50 H* 2.20 H* Calcium Phosphorus Magnesium Ferritin 2297.0 H Direct Bilirubin AST ALT Alkaline Phosphatase Lactate Dehydrogenase Total Creatine Kinase C-Reactive Protein Total Protein Albumin Triglycerides Arterial Blood Glucose Arterial Blood Ionized Calcium Urine Creatinine Urine Chloride Vancomycin Trough Coronavirus (PCR) Crossmatch 06/17/20 06/17/20 06/17/20 14:48 14:48 14:48 WBC RBC Hgb Hct MCHC RDW Lymph % (Auto) [place] % (Auto) Lymph # (Auto) [place] # (Auto) Eos # (Auto) Seg Neutrophils % Seg Neuts % (Manual) Lymphocytes % (Manual) Monocytes % (Manual) Nucleated RBC % Seg Neutrophils # Seg Neutrophils # Man Lymphocytes # (Manual) Monocytes # (Manual) Eosinophils # (Manual) PT INR APTT D-Dimer 939.89 H Heparin Anti-Xa Level ABG pH POC ABG pCO2 POC ABG pO2 ABG pO2 ABG HCO3 ABG Hemoglobin ABG Oxyhemoglobin ABG Sodium ABG Potassium ABG Chloride ABG Glucose Carboxyhemoglobin Sodium Potassium Chloride Carbon Dioxide BUN Creatinine Glucose 141 H POC Glucose Lactic Acid Calcium Phosphorus Magnesium Ferritin > 2000.0 H Direct Bilirubin AST ALT Alkaline Phosphatase Lactate Dehydrogenase 503 H Total Creatine Kinase C-Reactive Protein 24.70 H Total Protein Albumin Triglycerides Arterial Blood Glucose Arterial Blood Ionized Calcium Urine Creatinine Urine Chloride Vancomycin Trough Coronavirus (PCR) Crossmatch 06/17/20 06/17/20 06/17/20 16:54 19:39 23:43 WBC RBC Hgb Hct MCHC RDW Lymph % (Auto) [place] % (Auto) Lymph # (Auto) [place] # (Auto) Eos # (Auto) Seg Neutrophils % Seg Neuts % (Manual) Lymphocytes % (Manual) Monocytes % (Manual) Nucleated RBC % Seg Neutrophils # Seg Neutrophils # Man Lymphocytes # (Manual) Monocytes # (Manual) Eosinophils # (Manual) PT INR APTT D-Dimer Heparin Anti-Xa Level ABG pH 7.571 H POC ABG pCO2 24.3 L POC ABG pO2 41.6 L ABG pO2 ABG HCO3 ABG Hemoglobin ABG Oxyhemoglobin 84.0 L ABG Sodium 131.0 L ABG Potassium ABG Chloride ABG Glucose 163 H Carboxyhemoglobin Sodium Potassium Chloride Carbon Dioxide BUN Creatinine Glucose POC Glucose 185 H Lactic Acid 2.10 H* Calcium Phosphorus Magnesium Ferritin Direct Bilirubin AST ALT Alkaline Phosphatase Lactate Dehydrogenase Total Creatine Kinase C-Reactive Protein Total Protein Albumin Triglycerides Arterial Blood Glucose 163 H Arterial Blood Ionized Calcium 4.4 L Urine Creatinine Urine Chloride Vancomycin Trough Coronavirus (PCR) Crossmatch 06/18/20 06/18/20 06/18/20 00:17 00:23 03:55 WBC RBC Hgb Hct MCHC RDW Lymph % (Auto) [place] % (Auto) Lymph # (Auto) [place] # (Auto) Eos # (Auto) Seg Neutrophils % Seg Neuts % (Manual) Lymphocytes % (Manual) Monocytes % (Manual) Nucleated RBC % Seg Neutrophils # Seg Neutrophils # Man Lymphocytes # (Manual) Monocytes # (Manual) Eosinophils # (Manual) PT INR APTT D-Dimer Heparin Anti-Xa Level ABG pH POC ABG pCO2 POC ABG pO2 56.5 L 48.3 L ABG pO2 ABG HCO3 ABG Hemoglobin ABG Oxyhemoglobin 86.3 L 81.7 L ABG Sodium 132.9 L 131.0 L ABG Potassium ABG Chloride ABG Glucose 189 H 161 H Carboxyhemoglobin 0.4 L Sodium Potassium Chloride Carbon Dioxide BUN Creatinine Glucose POC Glucose Lactic Acid 3.80 H* Calcium Phosphorus Magnesium Ferritin Direct Bilirubin AST ALT Alkaline Phosphatase Lactate Dehydrogenase Total Creatine Kinase C-Reactive Protein Total Protein Albumin Triglycerides Arterial Blood Glucose 189 H 161 H Arterial Blood Ionized Calcium 4.3 L 4.2 L Urine Creatinine Urine Chloride Vancomycin Trough Coronavirus (PCR) Crossmatch 06/18/20 06/18/20 06/18/20 05:39 05:39 05:39 WBC 26.2 H RBC Hgb Hct MCHC RDW Lymph % (Auto) [place] % (Auto) Lymph # (Auto) [place] # (Auto) Eos # (Auto) Seg Neutrophils % Seg Neuts % (Manual) 90.0 H Lymphocytes % (Manual) 5.0 L Monocytes % (Manual) Nucleated RBC % Seg Neutrophils # Seg Neutrophils # Man 23.6 H Lymphocytes # (Manual) Monocytes # (Manual) 1.3 H Eosinophils # (Manual) PT INR APTT D-Dimer Heparin Anti-Xa Level ABG pH POC ABG pCO2 POC ABG pO2 ABG pO2 ABG HCO3 ABG Hemoglobin ABG Oxyhemoglobin ABG Sodium ABG Potassium ABG Chloride ABG Glucose Carboxyhemoglobin Sodium 135 L Potassium Chloride 97.5 L Carbon Dioxide 21 L BUN 39 H Creatinine 1.7 H D Glucose 168 H POC Glucose Lactic Acid 3.40 H* Calcium 7.2 L Phosphorus Magnesium Ferritin Direct Bilirubin AST ALT Alkaline Phosphatase Lactate Dehydrogenase Total Creatine Kinase C-Reactive Protein Total Protein Albumin Triglycerides Arterial Blood Glucose Arterial Blood Ionized Calcium Urine Creatinine Urine Chloride Vancomycin Trough Coronavirus (PCR) Crossmatch 06/18/20 06/18/20 06/18/20 07:24 09:00 10:10 WBC RBC Hgb Hct MCHC RDW Lymph % (Auto) [place] % (Auto) Lymph # (Auto) [place] # (Auto) Eos # (Auto) Seg Neutrophils % Seg Neuts % (Manual) Lymphocytes % (Manual) Monocytes % (Manual) Nucleated RBC % Seg Neutrophils # Seg Neutrophils # Man Lymphocytes # (Manual) Monocytes # (Manual) Eosinophils # (Manual) PT INR APTT D-Dimer Heparin Anti-Xa Level ABG pH POC ABG pCO2 POC ABG pO2 ABG pO2 ABG HCO3 ABG Hemoglobin ABG Oxyhemoglobin ABG Sodium ABG Potassium ABG Chloride ABG Glucose Carboxyhemoglobin Sodium Potassium Chloride Carbon Dioxide BUN Creatinine Glucose POC Glucose Lactic Acid 2.90 H* 3.20 H* Calcium Phosphorus Magnesium Ferritin Direct Bilirubin AST ALT Alkaline Phosphatase Lactate Dehydrogenase Total Creatine Kinase C-Reactive Protein Total Protein Albumin Triglycerides Arterial Blood Glucose Arterial Blood Ionized Calcium Urine Creatinine Urine Chloride Vancomycin Trough Coronavirus (PCR) Positive A Crossmatch 06/18/20 06/18/20 06/18/20 11:58 14:43 15:00 WBC RBC Hgb Hct MCHC RDW Lymph % (Auto) [place] % (Auto) Lymph # (Auto) [place] # (Auto) Eos # (Auto) Seg Neutrophils % Seg Neuts % (Manual) Lymphocytes % (Manual) Monocytes % (Manual) Nucleated RBC % Seg Neutrophils # Seg Neutrophils # Man Lymphocytes # (Manual) Monocytes # (Manual) Eosinophils # (Manual) PT INR APTT D-Dimer Heparin Anti-Xa Level ABG pH 7.303 L POC ABG pCO2 POC ABG pO2 82.3 L ABG pO2 ABG HCO3 ABG Hemoglobin ABG Oxyhemoglobin ABG Sodium 135.3 L ABG Potassium ABG Chloride ABG Glucose 215 H Carboxyhemoglobin 0.3 L Sodium Potassium Chloride Carbon Dioxide BUN Creatinine Glucose POC Glucose 209 H Lactic Acid Calcium Phosphorus Magnesium Ferritin Direct Bilirubin AST ALT Alkaline Phosphatase Lactate Dehydrogenase Total Creatine Kinase C-Reactive Protein Total Protein Albumin Triglycerides Arterial Blood Glucose 215 H Arterial Blood Ionized Calcium 4.2 L Urine Creatinine 192.4 H Urine Chloride 31.1 L Vancomycin Trough Coronavirus (PCR) Crossmatch 06/18/20 06/18/20 06/18/20 17:16 19:44 20:33 WBC RBC Hgb Hct MCHC RDW Lymph % (Auto) [place] % (Auto) Lymph # (Auto) [place] # (Auto) Eos # (Auto) Seg Neutrophils % Seg Neuts % (Manual) Lymphocytes % (Manual) Monocytes % (Manual) Nucleated RBC % Seg Neutrophils # Seg Neutrophils # Man Lymphocytes # (Manual) Monocytes # (Manual) Eosinophils # (Manual) PT INR APTT D-Dimer Heparin Anti-Xa Level ABG pH POC ABG pCO2 POC ABG pO2 ABG pO2 ABG HCO3 ABG Hemoglobin ABG Oxyhemoglobin ABG Sodium ABG Potassium ABG Chloride ABG Glucose Carboxyhemoglobin Sodium Potassium Chloride Carbon Dioxide BUN Creatinine Glucose POC Glucose 182 H Lactic Acid 3.00 H* Calcium Phosphorus Magnesium 2.70 H Ferritin Direct Bilirubin AST ALT Alkaline Phosphatase Lactate Dehydrogenase Total Creatine Kinase C-Reactive Protein Total Protein Albumin Triglycerides Arterial Blood Glucose Arterial Blood Ionized Calcium Urine Creatinine Urine Chloride Vancomycin Trough Coronavirus (PCR) Crossmatch 06/18/20 06/19/20 06/19/20 23:43 04:00 04:00 WBC 31.6 H RBC Hgb Hct MCHC RDW Lymph % (Auto) [place] % (Auto) Lymph # (Auto) [place] # (Auto) Eos # (Auto) Seg Neutrophils % Seg Neuts % (Manual) 98.0 H Lymphocytes % (Manual) 0.5 L Monocytes % (Manual) Nucleated RBC % Seg Neutrophils # Seg Neutrophils # Man 31.0 H Lymphocytes # (Manual) 0.2 L Monocytes # (Manual) Eosinophils # (Manual) PT INR APTT D-Dimer Heparin Anti-Xa Level ABG pH POC ABG pCO2 POC ABG pO2 ABG pO2 ABG HCO3 ABG Hemoglobin ABG Oxyhemoglobin ABG Sodium ABG Potassium ABG Chloride ABG Glucose Carboxyhemoglobin Sodium Potassium Chloride Carbon Dioxide BUN 56 H Creatinine 1.6 H Glucose 176 H POC Glucose 149 H Lactic Acid Calcium 7.0 L Phosphorus Magnesium Ferritin Direct Bilirubin AST 244 H ALT 159 H Alkaline Phosphatase Lactate Dehydrogenase Total Creatine Kinase C-Reactive Protein Total Protein 4.9 L D Albumin 2.5 L Triglycerides Arterial Blood Glucose Arterial Blood Ionized Calcium Urine Creatinine Urine Chloride Vancomycin Trough Coronavirus (PCR) Crossmatch 06/19/20 06/19/20 06/19/20 04:00 05:44 11:42 WBC RBC Hgb Hct MCHC RDW Lymph % (Auto) [place] % (Auto) Lymph # (Auto) [place] # (Auto) Eos # (Auto) Seg Neutrophils % Seg Neuts % (Manual) Lymphocytes % (Manual) Monocytes % (Manual) Nucleated RBC % Seg Neutrophils # Seg Neutrophils # Man Lymphocytes # (Manual) Monocytes # (Manual) Eosinophils # (Manual) PT INR APTT D-Dimer Heparin Anti-Xa Level ABG pH 7.265 L POC ABG pCO2 51.8 H POC ABG pO2 65.1 L ABG pO2 ABG HCO3 ABG Hemoglobin ABG Oxyhemoglobin ABG Sodium ABG Potassium ABG Chloride ABG Glucose 184 H Carboxyhemoglobin Sodium Potassium Chloride Carbon Dioxide BUN Creatinine Glucose POC Glucose 156 H 191 H Lactic Acid Calcium Phosphorus Magnesium Ferritin Direct Bilirubin AST ALT Alkaline Phosphatase Lactate Dehydrogenase Total Creatine Kinase C-Reactive Protein Total Protein Albumin Triglycerides Arterial Blood Glucose 184 H Arterial Blood Ionized Calcium 4.3 L Urine Creatinine Urine Chloride Vancomycin Trough Coronavirus (PCR) Crossmatch 06/19/20 06/19/20 06/19/20 12:30 17:16 18:36 WBC RBC Hgb Hct MCHC RDW Lymph % (Auto) [place] % (Auto) Lymph # (Auto) [place] # (Auto) Eos # (Auto) Seg Neutrophils % Seg Neuts % (Manual) Lymphocytes % (Manual) Monocytes % (Manual) Nucleated RBC % Seg Neutrophils # Seg Neutrophils # Man Lymphocytes # (Manual) Monocytes # (Manual) Eosinophils # (Manual) PT 16.4 H INR 1.32 H APTT D-Dimer Heparin Anti-Xa Level ABG pH 7.088 L POC ABG pCO2 78.1 H POC ABG pO2 208.3 H ABG pO2 ABG HCO3 ABG Hemoglobin ABG Oxyhemoglobin 98.3 H ABG Sodium ABG Potassium 5.0 H ABG Chloride ABG Glucose 182 H Carboxyhemoglobin 0.4 L Sodium Potassium Chloride Carbon Dioxide BUN Creatinine Glucose POC Glucose 154 H Lactic Acid Calcium Phosphorus Magnesium Ferritin Direct Bilirubin AST ALT Alkaline Phosphatase Lactate Dehydrogenase Total Creatine Kinase C-Reactive Protein Total Protein Albumin Triglycerides Arterial Blood Glucose 182 H Arterial Blood Ionized Calcium 4.3 L Urine Creatinine Urine Chloride Vancomycin Trough Coronavirus (PCR) Crossmatch 06/19/20 06/20/20 06/20/20 23:32 03:00 05:19 WBC RBC Hgb Hct MCHC RDW Lymph % (Auto) [place] % (Auto) Lymph # (Auto) [place] # (Auto) Eos # (Auto) Seg Neutrophils % Seg Neuts % (Manual) Lymphocytes % (Manual) Monocytes % (Manual) Nucleated RBC % Seg Neutrophils # Seg Neutrophils # Man Lymphocytes # (Manual) Monocytes # (Manual) Eosinophils # (Manual) PT INR APTT D-Dimer Heparin Anti-Xa Level 0.77 H ABG pH POC ABG pCO2 POC ABG pO2 ABG pO2 ABG HCO3 ABG Hemoglobin ABG Oxyhemoglobin ABG Sodium ABG Potassium ABG Chloride ABG Glucose Carboxyhemoglobin Sodium Potassium Chloride Carbon Dioxide BUN Creatinine Glucose POC Glucose 201 H 190 H Lactic Acid Calcium Phosphorus Magnesium Ferritin Direct Bilirubin AST ALT Alkaline Phosphatase Lactate Dehydrogenase Total Creatine Kinase C-Reactive Protein Total Protein Albumin Triglycerides Arterial Blood Glucose Arterial Blood Ionized Calcium Urine Creatinine Urine Chloride Vancomycin Trough Coronavirus (PCR) Crossmatch 06/20/20 06/20/20 06/20/20 08:25 08:25 11:36 WBC RBC Hgb Hct MCHC RDW Lymph % (Auto) [place] % (Auto) Lymph # (Auto) [place] # (Auto) Eos # (Auto) Seg Neutrophils % Seg Neuts % (Manual) Lymphocytes % (Manual) Monocytes % (Manual) Nucleated RBC % Seg Neutrophils # Seg Neutrophils # Man Lymphocytes # (Manual) Monocytes # (Manual) Eosinophils # (Manual) PT INR APTT D-Dimer Heparin Anti-Xa Level ABG pH POC ABG pCO2 POC ABG pO2 ABG pO2 ABG HCO3 ABG Hemoglobin ABG Oxyhemoglobin ABG Sodium ABG Potassium ABG Chloride ABG Glucose Carboxyhemoglobin Sodium 135 L Potassium 5.4 H Chloride 109.2 H Carbon Dioxide 19 L BUN 68 H Creatinine 2.5 H D Glucose 201 H POC Glucose 184 H Lactic Acid Calcium 5.5 L* D Phosphorus Magnesium Ferritin Direct Bilirubin AST 123 H ALT 86 H Alkaline Phosphatase Lactate Dehydrogenase Total Creatine Kinase C-Reactive Protein Total Protein 4.6 L Albumin 1.5 L Triglycerides Arterial Blood Glucose Arterial Blood Ionized Calcium Urine Creatinine Urine Chloride Vancomycin Trough 22.7 H Coronavirus (PCR) Crossmatch 06/20/20 06/20/20 06/20/20 11:40 17:28 20:00 WBC RBC Hgb Hct MCHC RDW Lymph % (Auto) [place] % (Auto) Lymph # (Auto) [place] # (Auto) Eos # (Auto) Seg Neutrophils % Seg Neuts % (Manual) Lymphocytes % (Manual) Monocytes % (Manual) Nucleated RBC % Seg Neutrophils # Seg Neutrophils # Man Lymphocytes # (Manual) Monocytes # (Manual) Eosinophils # (Manual) PT INR APTT D-Dimer Heparin Anti-Xa Level 0.89 H ABG pH 7.099 L POC ABG pCO2 61.1 H POC ABG pO2 ABG pO2 ABG HCO3 ABG Hemoglobin ABG Oxyhemoglobin ABG Sodium ABG Potassium 5.0 H ABG Chloride 111.0 H ABG Glucose 200 H Carboxyhemoglobin 0.4 L Sodium Potassium Chloride Carbon Dioxide BUN Creatinine Glucose POC Glucose 165 H Lactic Acid Calcium Phosphorus Magnesium Ferritin Direct Bilirubin AST ALT Alkaline Phosphatase Lactate Dehydrogenase Total Creatine Kinase C-Reactive Protein Total Protein Albumin Triglycerides Arterial Blood Glucose 200 H Arterial Blood Ionized Calcium 4.2 L Urine Creatinine Urine Chloride Vancomycin Trough Coronavirus (PCR) Crossmatch 06/20/20 06/21/20 06/21/20 23:29 05:00 05:20 WBC RBC Hgb Hct MCHC RDW Lymph % (Auto) [place] % (Auto) Lymph # (Auto) [place] # (Auto) Eos # (Auto) Seg Neutrophils % Seg Neuts % (Manual) Lymphocytes % (Manual) Monocytes % (Manual) Nucleated RBC % Seg Neutrophils # Seg Neutrophils # Man Lymphocytes # (Manual) Monocytes # (Manual) Eosinophils # (Manual) PT INR APTT D-Dimer Heparin Anti-Xa Level ABG pH POC ABG pCO2 POC ABG pO2 ABG pO2 ABG HCO3 ABG Hemoglobin ABG Oxyhemoglobin ABG Sodium ABG Potassium ABG Chloride ABG Glucose Carboxyhemoglobin Sodium Potassium Chloride 112.0 H Carbon Dioxide 20 L BUN 92 H Creatinine 3.9 H D Glucose 214 H POC Glucose 145 H 191 H Lactic Acid Calcium 6.5 L D Phosphorus Magnesium Ferritin Direct Bilirubin AST 98 H ALT 84 H Alkaline Phosphatase Lactate Dehydrogenase Total Creatine Kinase C-Reactive Protein Total Protein 4.6 L Albumin 2.1 L Triglycerides 180 H Arterial Blood Glucose Arterial Blood Ionized Calcium Urine Creatinine Urine Chloride Vancomycin Trough Coronavirus (PCR) Crossmatch 06/21/20 06/21/20 06/21/20 08:56 11:12 12:43 WBC RBC Hgb Hct MCHC RDW Lymph % (Auto) [place] % (Auto) Lymph # (Auto) [place] # (Auto) Eos # (Auto) Seg Neutrophils % Seg Neuts % (Manual) Lymphocytes % (Manual) Monocytes % (Manual) Nucleated RBC % Seg Neutrophils # Seg Neutrophils # Man Lymphocytes # (Manual) Monocytes # (Manual) Eosinophils # (Manual) PT INR APTT D-Dimer Heparin Anti-Xa Level 0.28 L ABG pH 7.184 L POC ABG pCO2 48.3 H POC ABG pO2 172.1 H ABG pO2 ABG HCO3 ABG Hemoglobin ABG Oxyhemoglobin 98.7 H ABG Sodium ABG Potassium 4.9 H ABG Chloride 112.0 H ABG Glucose 196 H Carboxyhemoglobin 0.2 L Sodium Potassium Chloride Carbon Dioxide BUN Creatinine Glucose POC Glucose 177 H Lactic Acid Calcium Phosphorus Magnesium Ferritin Direct Bilirubin AST ALT Alkaline Phosphatase Lactate Dehydrogenase Total Creatine Kinase C-Reactive Protein Total Protein Albumin Triglycerides Arterial Blood Glucose 196 H Arterial Blood Ionized Calcium 4.1 L Urine Creatinine Urine Chloride Vancomycin Trough Coronavirus (PCR) Crossmatch 06/21/20 06/21/20 06/22/20 16:31 Unknown 00:12 WBC RBC Hgb Hct MCHC RDW Lymph % (Auto) [place] % (Auto) Lymph # (Auto) [place] # (Auto) Eos # (Auto) Seg Neutrophils % Seg Neuts % (Manual) Lymphocytes % (Manual) Monocytes % (Manual) Nucleated RBC % Seg Neutrophils # Seg Neutrophils # Man Lymphocytes # (Manual) Monocytes # (Manual) Eosinophils # (Manual) PT INR APTT D-Dimer Heparin Anti-Xa Level 0.78 H ABG pH POC ABG pCO2 POC ABG pO2 ABG pO2 ABG HCO3 ABG Hemoglobin ABG Oxyhemoglobin ABG Sodium ABG Potassium ABG Chloride ABG Glucose Carboxyhemoglobin Sodium Potassium Chloride Carbon Dioxide BUN Creatinine Glucose POC Glucose 150 H 173 H Lactic Acid Calcium Phosphorus Magnesium Ferritin Direct Bilirubin AST ALT Alkaline Phosphatase Lactate Dehydrogenase Total Creatine Kinase C-Reactive Protein Total Protein Albumin Triglycerides Arterial Blood Glucose Arterial Blood Ionized Calcium Urine Creatinine Urine Chloride Vancomycin Trough Coronavirus (PCR) Crossmatch 06/22/20 06/22/20 06/22/20 04:00 05:04 05:30 WBC 33.9 H RBC Hgb 11.7 L Hct 35.2 L MCHC RDW 15.8 H Lymph % (Auto) [place] % (Auto) Lymph # (Auto) [place] # (Auto) Eos # (Auto) Seg Neutrophils % Seg Neuts % (Manual) 93.0 H Lymphocytes % (Manual) 5.0 L Monocytes % (Manual) Nucleated RBC % Seg Neutrophils # Seg Neutrophils # Man 31.5 H Lymphocytes # (Manual) Monocytes # (Manual) Eosinophils # (Manual) PT INR APTT D-Dimer Heparin Anti-Xa Level ABG pH 7.169 L POC ABG pCO2 POC ABG pO2 ABG pO2 ABG HCO3 ABG Hemoglobin ABG Oxyhemoglobin ABG Sodium ABG Potassium 5.1 H ABG Chloride 112.0 H ABG Glucose 186 H Carboxyhemoglobin 0.3 L Sodium Potassium Chloride Carbon Dioxide BUN Creatinine Glucose POC Glucose 161 H Lactic Acid Calcium Phosphorus Magnesium Ferritin Direct Bilirubin AST ALT Alkaline Phosphatase Lactate Dehydrogenase Total Creatine Kinase C-Reactive Protein Total Protein Albumin Triglycerides Arterial Blood Glucose 186 H Arterial Blood Ionized Calcium 4.1 L Urine Creatinine Urine Chloride Vancomycin Trough Coronavirus (PCR) Crossmatch 06/22/20 06/22/20 06/22/20 05:30 11:39 13:27 WBC RBC Hgb Hct MCHC RDW Lymph % (Auto) [place] % (Auto) Lymph # (Auto) [place] # (Auto) Eos # (Auto) Seg Neutrophils % Seg Neuts % (Manual) Lymphocytes % (Manual) Monocytes % (Manual) Nucleated RBC % Seg Neutrophils # Seg Neutrophils # Man Lymphocytes # (Manual) Monocytes # (Manual) Eosinophils # (Manual) PT INR APTT D-Dimer Heparin Anti-Xa Level ABG pH POC ABG pCO2 POC ABG pO2 ABG pO2 ABG HCO3 ABG Hemoglobin ABG Oxyhemoglobin ABG Sodium ABG Potassium ABG Chloride ABG Glucose Carboxyhemoglobin Sodium Potassium 5.7 H Chloride 111.3 H Carbon Dioxide 18 L BUN 112 H Creatinine 5.0 H Glucose 173 H POC Glucose 172 H 176 H Lactic Acid Calcium 6.7 L Phosphorus Magnesium Ferritin Direct Bilirubin AST ALT Alkaline Phosphatase Lactate Dehydrogenase Total Creatine Kinase C-Reactive Protein Total Protein Albumin Triglycerides Arterial Blood Glucose Arterial Blood Ionized Calcium Urine Creatinine Urine Chloride Vancomycin Trough Coronavirus (PCR) Crossmatch 06/22/20 06/22/20 06/22/20 14:37 17:00 17:40 WBC RBC Hgb Hct MCHC RDW Lymph % (Auto) [place] % (Auto) Lymph # (Auto) [place] # (Auto) Eos # (Auto) Seg Neutrophils % Seg Neuts % (Manual) Lymphocytes % (Manual) Monocytes % (Manual) Nucleated RBC % Seg Neutrophils # Seg Neutrophils # Man Lymphocytes # (Manual) Monocytes # (Manual) Eosinophils # (Manual) PT INR APTT D-Dimer Heparin Anti-Xa Level 1.32 H ABG pH POC ABG pCO2 POC ABG pO2 ABG pO2 ABG HCO3 ABG Hemoglobin ABG Oxyhemoglobin ABG Sodium ABG Potassium ABG Chloride ABG Glucose Carboxyhemoglobin Sodium Potassium Chloride Carbon Dioxide BUN Creatinine Glucose POC Glucose 171 H Lactic Acid Calcium Phosphorus Magnesium Ferritin Direct Bilirubin AST ALT Alkaline Phosphatase Lactate Dehydrogenase Total Creatine Kinase C-Reactive Protein 5.30 H Total Protein Albumin Triglycerides Arterial Blood Glucose Arterial Blood Ionized Calcium Urine Creatinine Urine Chloride Vancomycin Trough Coronavirus (PCR) Crossmatch 06/22/20 06/23/20 06/23/20 23:36 02:13 02:41 WBC RBC Hgb Hct MCHC RDW Lymph % (Auto) [place] % (Auto) Lymph # (Auto) [place] # (Auto) Eos # (Auto) Seg Neutrophils % Seg Neuts % (Manual) Lymphocytes % (Manual) Monocytes % (Manual) Nucleated RBC % Seg Neutrophils # Seg Neutrophils # Man Lymphocytes # (Manual) Monocytes # (Manual) Eosinophils # (Manual) PT INR APTT D-Dimer Heparin Anti-Xa Level 0.21 L ABG pH 7.318 L POC ABG pCO2 POC ABG pO2 157.5 H ABG pO2 ABG HCO3 ABG Hemoglobin ABG Oxyhemoglobin ABG Sodium 135.6 L ABG Potassium 4.6 H ABG Chloride 110.0 H ABG Glucose 169 H Carboxyhemoglobin Sodium Potassium Chloride Carbon Dioxide BUN Creatinine Glucose POC Glucose 155 H Lactic Acid Calcium Phosphorus Magnesium Ferritin Direct Bilirubin AST ALT Alkaline Phosphatase Lactate Dehydrogenase Total Creatine Kinase C-Reactive Protein Total Protein Albumin Triglycerides Arterial Blood Glucose 169 H Arterial Blood Ionized Calcium Urine Creatinine Urine Chloride Vancomycin Trough Coronavirus (PCR) Crossmatch 06/23/20 06/23/20 06/23/20 04:00 04:00 05:24 WBC 27.4 H RBC Hgb 11.3 L Hct 33.8 L MCHC RDW Lymph % (Auto) [place] % (Auto) Lymph # (Auto) [place] # (Auto) Eos # (Auto) Seg Neutrophils % Seg Neuts % (Manual) 93.0 H Lymphocytes % (Manual) 1.0 L Monocytes % (Manual) Nucleated RBC % 1.0 H Seg Neutrophils # Seg Neutrophils # Man 25.5 H Lymphocytes # (Manual) 0.3 L Monocytes # (Manual) 1.1 H Eosinophils # (Manual) PT INR APTT D-Dimer Heparin Anti-Xa Level ABG pH POC ABG pCO2 POC ABG pO2 ABG pO2 ABG HCO3 ABG Hemoglobin ABG Oxyhemoglobin ABG Sodium ABG Potassium ABG Chloride ABG Glucose Carboxyhemoglobin Sodium Potassium Chloride 107.6 H Carbon Dioxide 20 L BUN 100 H Creatinine 4.7 H Glucose 168 H POC Glucose 151 H Lactic Acid Calcium Phosphorus Magnesium Ferritin Direct Bilirubin AST ALT Alkaline Phosphatase Lactate Dehydrogenase Total Creatine Kinase C-Reactive Protein Total Protein Albumin Triglycerides Arterial Blood Glucose Arterial Blood Ionized Calcium Urine Creatinine Urine Chloride Vancomycin Trough Coronavirus (PCR) Crossmatch 06/23/20 06/23/20 06/23/20 11:30 17:18 23:50 WBC RBC Hgb Hct MCHC RDW Lymph % (Auto) [place] % (Auto) Lymph # (Auto) [place] # (Auto) Eos # (Auto) Seg Neutrophils % Seg Neuts % (Manual) Lymphocytes % (Manual) Monocytes % (Manual) Nucleated RBC % Seg Neutrophils # Seg Neutrophils # Man Lymphocytes # (Manual) Monocytes # (Manual) Eosinophils # (Manual) PT INR APTT D-Dimer Heparin Anti-Xa Level ABG pH POC ABG pCO2 POC ABG pO2 ABG pO2 ABG HCO3 ABG Hemoglobin ABG Oxyhemoglobin ABG Sodium ABG Potassium ABG Chloride ABG Glucose Carboxyhemoglobin Sodium Potassium Chloride Carbon Dioxide BUN Creatinine Glucose POC Glucose 157 H 156 H 162 H Lactic Acid Calcium Phosphorus Magnesium Ferritin Direct Bilirubin AST ALT Alkaline Phosphatase Lactate Dehydrogenase Total Creatine Kinase C-Reactive Protein Total Protein Albumin Triglycerides Arterial Blood Glucose Arterial Blood Ionized Calcium Urine Creatinine Urine Chloride Vancomycin Trough Coronavirus (PCR) Crossmatch 06/24/20 06/24/20 06/24/20 04:41 05:57 06:30 WBC 34.3 H RBC Hgb 10.9 L Hct 32.6 L MCHC RDW Lymph % (Auto) 2.0 L [place] % (Auto) Lymph # (Auto) 0.7 L [place] # (Auto) 1.2 H Eos # (Auto) Seg Neutrophils % Seg Neuts % (Manual) 96.0 H Lymphocytes % (Manual) 3.0 L Monocytes % (Manual) Nucleated RBC % Seg Neutrophils # 32.3 H Seg Neutrophils # Man 32.9 H Lymphocytes # (Manual) 1.0 L Monocytes # (Manual) Eosinophils # (Manual) PT INR APTT D-Dimer Heparin Anti-Xa Level ABG pH POC ABG pCO2 POC ABG pO2 71.1 L ABG pO2 ABG HCO3 ABG Hemoglobin ABG Oxyhemoglobin 92.4 L ABG Sodium 115.6 L ABG Potassium ABG Chloride ABG Glucose 159 H Carboxyhemoglobin Sodium Potassium Chloride Carbon Dioxide BUN Creatinine Glucose POC Glucose 143 H Lactic Acid Calcium Phosphorus Magnesium Ferritin Direct Bilirubin AST ALT Alkaline Phosphatase Lactate Dehydrogenase Total Creatine Kinase C-Reactive Protein Total Protein Albumin Triglycerides Arterial Blood Glucose 159 H Arterial Blood Ionized Calcium 4.2 L Urine Creatinine Urine Chloride Vancomycin Trough Coronavirus (PCR) Crossmatch 06/24/20 06/24/20 06/24/20 07:03 09:37 11:56 WBC RBC Hgb Hct MCHC RDW Lymph % (Auto) [place] % (Auto) Lymph # (Auto) [place] # (Auto) Eos # (Auto) Seg Neutrophils % Seg Neuts % (Manual) Lymphocytes % (Manual) Monocytes % (Manual) Nucleated RBC % Seg Neutrophils # Seg Neutrophils # Man Lymphocytes # (Manual) Monocytes # (Manual) Eosinophils # (Manual) PT INR APTT D-Dimer Heparin Anti-Xa Level 0.26 L ABG pH POC ABG pCO2 POC ABG pO2 ABG pO2 ABG HCO3 ABG Hemoglobin ABG Oxyhemoglobin ABG Sodium ABG Potassium ABG Chloride ABG Glucose Carboxyhemoglobin Sodium Potassium 5.1 H Chloride Carbon Dioxide BUN 103 H Creatinine 5.0 H Glucose 163 H POC Glucose 149 H Lactic Acid Calcium 7.6 L Phosphorus Magnesium Ferritin Direct Bilirubin AST ALT Alkaline Phosphatase Lactate Dehydrogenase Total Creatine Kinase C-Reactive Protein Total Protein Albumin Triglycerides Arterial Blood Glucose Arterial Blood Ionized Calcium Urine Creatinine Urine Chloride Vancomycin Trough Coronavirus (PCR) Crossmatch 06/24/20 06/25/20 06/25/20 18:09 01:05 03:00 WBC RBC Hgb 10.6 L Hct 32.1 L MCHC RDW Lymph % (Auto) [place] % (Auto) Lymph # (Auto) [place] # (Auto) Eos # (Auto) Seg Neutrophils % Seg Neuts % (Manual) Lymphocytes % (Manual) Monocytes % (Manual) Nucleated RBC % Seg Neutrophils # Seg Neutrophils # Man Lymphocytes # (Manual) Monocytes # (Manual) Eosinophils # (Manual) PT INR APTT D-Dimer Heparin Anti-Xa Level ABG pH POC ABG pCO2 POC ABG pO2 ABG pO2 ABG HCO3 ABG Hemoglobin ABG Oxyhemoglobin ABG Sodium ABG Potassium ABG Chloride ABG Glucose Carboxyhemoglobin Sodium Potassium Chloride Carbon Dioxide BUN Creatinine Glucose POC Glucose 141 H 137 H Lactic Acid Calcium Phosphorus Magnesium Ferritin Direct Bilirubin AST ALT Alkaline Phosphatase Lactate Dehydrogenase Total Creatine Kinase C-Reactive Protein Total Protein Albumin Triglycerides Arterial Blood Glucose Arterial Blood Ionized Calcium Urine Creatinine Urine Chloride Vancomycin Trough Coronavirus (PCR) Crossmatch 06/25/20 06/25/20 06/25/20 03:48 05:17 12:08 WBC RBC Hgb Hct MCHC RDW Lymph % (Auto) [place] % (Auto) Lymph # (Auto) [place] # (Auto) Eos # (Auto) Seg Neutrophils % Seg Neuts % (Manual) Lymphocytes % (Manual) Monocytes % (Manual) Nucleated RBC % Seg Neutrophils # Seg Neutrophils # Man Lymphocytes # (Manual) Monocytes # (Manual) Eosinophils # (Manual) PT INR APTT D-Dimer Heparin Anti-Xa Level ABG pH POC ABG pCO2 29.4 L POC ABG pO2 67.1 L ABG pO2 ABG HCO3 ABG Hemoglobin 11.5 L ABG Oxyhemoglobin ABG Sodium 124.1 L ABG Potassium 4.6 H ABG Chloride ABG Glucose 159 H Carboxyhemoglobin Sodium Potassium Chloride Carbon Dioxide BUN Creatinine Glucose POC Glucose 149 H 150 H Lactic Acid Calcium Phosphorus Magnesium Ferritin Direct Bilirubin AST ALT Alkaline Phosphatase Lactate Dehydrogenase Total Creatine Kinase C-Reactive Protein Total Protein Albumin Triglycerides Arterial Blood Glucose 159 H Arterial Blood Ionized Calcium 4.2 L Urine Creatinine Urine Chloride Vancomycin Trough Coronavirus (PCR) Crossmatch 06/25/20 06/25/20 06/25/20 16:27 16:35 17:27 WBC RBC Hgb Hct MCHC RDW Lymph % (Auto) [place] % (Auto) Lymph # (Auto) [place] # (Auto) Eos # (Auto) Seg Neutrophils % Seg Neuts % (Manual) Lymphocytes % (Manual) Monocytes % (Manual) Nucleated RBC % Seg Neutrophils # Seg Neutrophils # Man Lymphocytes # (Manual) Monocytes # (Manual) Eosinophils # (Manual) PT INR APTT D-Dimer Heparin Anti-Xa Level < 0.10 L ABG pH POC ABG pCO2 POC ABG pO2 ABG pO2 ABG HCO3 ABG Hemoglobin ABG Oxyhemoglobin ABG Sodium ABG Potassium ABG Chloride ABG Glucose Carboxyhemoglobin Sodium Potassium Chloride Carbon Dioxide BUN Creatinine Glucose POC Glucose 143 H 156 H Lactic Acid Calcium Phosphorus Magnesium Ferritin Direct Bilirubin AST ALT Alkaline Phosphatase Lactate Dehydrogenase Total Creatine Kinase C-Reactive Protein Total Protein Albumin Triglycerides Arterial Blood Glucose Arterial Blood Ionized Calcium Urine Creatinine Urine Chloride Vancomycin Trough Coronavirus (PCR) Crossmatch 06/25/20 06/25/20 06/25/20 20:00 20:55 23:10 WBC 32.7 H RBC 3.06 L Hgb 9.0 L 9.5 L Hct 26.7 L 28.6 L MCHC RDW Lymph % (Auto) [place] % (Auto) Lymph # (Auto) [place] # (Auto) Eos # (Auto) Seg Neutrophils % Seg Neuts % (Manual) Lymphocytes % (Manual) 2.0 L Monocytes % (Manual) Nucleated RBC % Seg Neutrophils # Seg Neutrophils # Man 30.7 H Lymphocytes # (Manual) 0.7 L Monocytes # (Manual) 1.3 H Eosinophils # (Manual) PT 17.7 H INR 1.47 H APTT 65.8 H* D-Dimer Heparin Anti-Xa Level ABG pH POC ABG pCO2 POC ABG pO2 ABG pO2 ABG HCO3 ABG Hemoglobin ABG Oxyhemoglobin ABG Sodium ABG Potassium ABG Chloride ABG Glucose Carboxyhemoglobin Sodium Potassium Chloride Carbon Dioxide BUN Creatinine Glucose POC Glucose Lactic Acid Calcium Phosphorus Magnesium Ferritin Direct Bilirubin AST ALT Alkaline Phosphatase Lactate Dehydrogenase Total Creatine Kinase C-Reactive Protein Total Protein Albumin Triglycerides Arterial Blood Glucose Arterial Blood Ionized Calcium Urine Creatinine Urine Chloride Vancomycin Trough Coronavirus (PCR) Crossmatch 06/25/20 06/26/20 06/26/20 23:14 01:30 03:25 WBC RBC Hgb Hct MCHC RDW Lymph % (Auto) [place] % (Auto) Lymph # (Auto) [place] # (Auto) Eos # (Auto) Seg Neutrophils % Seg Neuts % (Manual) Lymphocytes % (Manual) Monocytes % (Manual) Nucleated RBC % Seg Neutrophils # Seg Neutrophils # Man Lymphocytes # (Manual) Monocytes # (Manual) Eosinophils # (Manual) PT INR APTT D-Dimer Heparin Anti-Xa Level < 0.10 L ABG pH POC ABG pCO2 POC ABG pO2 ABG pO2 ABG HCO3 ABG Hemoglobin 11.8 L ABG Oxyhemoglobin ABG Sodium 127.1 L ABG Potassium 5.4 H ABG Chloride ABG Glucose 155 H Carboxyhemoglobin 0.3 L Sodium Potassium Chloride Carbon Dioxide BUN Creatinine Glucose POC Glucose 148 H Lactic Acid Calcium Phosphorus Magnesium Ferritin Direct Bilirubin AST ALT Alkaline Phosphatase Lactate Dehydrogenase Total Creatine Kinase C-Reactive Protein Total Protein Albumin Triglycerides Arterial Blood Glucose 155 H Arterial Blood Ionized Calcium 4.2 L Urine Creatinine Urine Chloride Vancomycin Trough Coronavirus (PCR) Crossmatch 06/26/20 06/26/20 06/26/20 03:59 05:14 05:47 WBC 36.5 H RBC 3.26 L Hgb 9.7 L Hct 28.2 L MCHC RDW Lymph % (Auto) [place] % (Auto) Lymph # (Auto) [place] # (Auto) Eos # (Auto) Seg Neutrophils % Seg Neuts % (Manual) 92.0 H Lymphocytes % (Manual) 4.0 L Monocytes % (Manual) Nucleated RBC % Seg Neutrophils # Seg Neutrophils # Man 33.6 H Lymphocytes # (Manual) Monocytes # (Manual) Eosinophils # (Manual) PT INR APTT D-Dimer Heparin Anti-Xa Level ABG pH POC ABG pCO2 POC ABG pO2 ABG pO2 ABG HCO3 ABG Hemoglobin ABG Oxyhemoglobin ABG Sodium ABG Potassium ABG Chloride ABG Glucose Carboxyhemoglobin Sodium Potassium 5.9 H Chloride Carbon Dioxide 20 L BUN 144 H Creatinine 6.4 H Glucose 149 H POC Glucose 128 H Lactic Acid Calcium 7.6 L Phosphorus Magnesium Ferritin Direct Bilirubin AST ALT Alkaline Phosphatase Lactate Dehydrogenase Total Creatine Kinase C-Reactive Protein Total Protein Albumin Triglycerides Arterial Blood Glucose Arterial Blood Ionized Calcium Urine Creatinine Urine Chloride Vancomycin Trough Coronavirus (PCR) Crossmatch 06/26/20 06/26/20 06/26/20 05:47 12:47 17:42 WBC RBC Hgb Hct MCHC RDW Lymph % (Auto) [place] % (Auto) Lymph # (Auto) [place] # (Auto) Eos # (Auto) Seg Neutrophils % Seg Neuts % (Manual) Lymphocytes % (Manual) Monocytes % (Manual) Nucleated RBC % Seg Neutrophils # Seg Neutrophils # Man Lymphocytes # (Manual) Monocytes # (Manual) Eosinophils # (Manual) PT 17.4 H INR 1.44 H APTT D-Dimer Heparin Anti-Xa Level ABG pH POC ABG pCO2 POC ABG pO2 ABG pO2 ABG HCO3 ABG Hemoglobin ABG Oxyhemoglobin ABG Sodium ABG Potassium ABG Chloride ABG Glucose Carboxyhemoglobin Sodium Potassium Chloride Carbon Dioxide BUN Creatinine Glucose POC Glucose 124 H 127 H Lactic Acid Calcium Phosphorus Magnesium Ferritin Direct Bilirubin AST ALT Alkaline Phosphatase Lactate Dehydrogenase Total Creatine Kinase C-Reactive Protein Total Protein Albumin Triglycerides Arterial Blood Glucose Arterial Blood Ionized Calcium Urine Creatinine Urine Chloride Vancomycin Trough Coronavirus (PCR) Crossmatch 06/26/20 06/27/20 06/27/20 23:30 03:32 04:00 WBC RBC Hgb 8.7 L Hct 26.4 L MCHC RDW Lymph % (Auto) [place] % (Auto) Lymph # (Auto) [place] # (Auto) Eos # (Auto) Seg Neutrophils % Seg Neuts % (Manual) Lymphocytes % (Manual) Monocytes % (Manual) Nucleated RBC % Seg Neutrophils # Seg Neutrophils # Man Lymphocytes # (Manual) Monocytes # (Manual) Eosinophils # (Manual) PT INR APTT D-Dimer Heparin Anti-Xa Level ABG pH 7.298 L POC ABG pCO2 POC ABG pO2 ABG pO2 ABG HCO3 ABG Hemoglobin 9.6 L ABG Oxyhemoglobin ABG Sodium 124.4 L ABG Potassium 6.6 H ABG Chloride ABG Glucose 136 H Carboxyhemoglobin Sodium Potassium Chloride Carbon Dioxide BUN Creatinine Glucose POC Glucose 123 H Lactic Acid Calcium Phosphorus Magnesium Ferritin Direct Bilirubin AST ALT Alkaline Phosphatase Lactate Dehydrogenase Total Creatine Kinase C-Reactive Protein Total Protein Albumin Triglycerides Arterial Blood Glucose 136 H Arterial Blood Ionized Calcium 4.1 L Urine Creatinine Urine Chloride Vancomycin Trough Coronavirus (PCR) Crossmatch 06/27/20 06/27/20 06/27/20 05:26 10:14 11:58 WBC RBC Hgb Hct MCHC RDW Lymph % (Auto) [place] % (Auto) Lymph # (Auto) [place] # (Auto) Eos # (Auto) Seg Neutrophils % Seg Neuts % (Manual) Lymphocytes % (Manual) Monocytes % (Manual) Nucleated RBC % Seg Neutrophils # Seg Neutrophils # Man Lymphocytes # (Manual) Monocytes # (Manual) Eosinophils # (Manual) PT INR APTT D-Dimer Heparin Anti-Xa Level ABG pH POC ABG pCO2 POC ABG pO2 ABG pO2 ABG HCO3 ABG Hemoglobin ABG Oxyhemoglobin ABG Sodium ABG Potassium ABG Chloride ABG Glucose Carboxyhemoglobin Sodium 136 L Potassium 7.0 H* Chloride 97.8 L Carbon Dioxide BUN 172 H Creatinine 7.4 H Glucose 129 H POC Glucose 124 H 115 H Lactic Acid Calcium 7.6 L Phosphorus Magnesium Ferritin Direct Bilirubin AST ALT Alkaline Phosphatase Lactate Dehydrogenase Total Creatine Kinase C-Reactive Protein Total Protein Albumin Triglycerides Arterial Blood Glucose Arterial Blood Ionized Calcium Urine Creatinine Urine Chloride Vancomycin Trough Coronavirus (PCR) Crossmatch 06/27/20 06/27/20 06/27/20 17:32 18:30 23:24 WBC RBC Hgb Hct MCHC RDW Lymph % (Auto) [place] % (Auto) Lymph # (Auto) [place] # (Auto) Eos # (Auto) Seg Neutrophils % Seg Neuts % (Manual) Lymphocytes % (Manual) Monocytes % (Manual) Nucleated RBC % Seg Neutrophils # Seg Neutrophils # Man Lymphocytes # (Manual) Monocytes # (Manual) Eosinophils # (Manual) PT INR APTT D-Dimer Heparin Anti-Xa Level ABG pH POC ABG pCO2 POC ABG pO2 ABG pO2 ABG HCO3 ABG Hemoglobin ABG Oxyhemoglobin ABG Sodium ABG Potassium ABG Chloride ABG Glucose Carboxyhemoglobin Sodium Potassium 7.3 H* Chloride Carbon Dioxide BUN Creatinine Glucose POC Glucose 122 H 116 H Lactic Acid Calcium Phosphorus Magnesium Ferritin Direct Bilirubin AST ALT Alkaline Phosphatase Lactate Dehydrogenase Total Creatine Kinase C-Reactive Protein Total Protein Albumin Triglycerides Arterial Blood Glucose Arterial Blood Ionized Calcium Urine Creatinine Urine Chloride Vancomycin Trough Coronavirus (PCR) Crossmatch 06/28/20 06/28/20 06/28/20 00:00 02:16 05:37 WBC RBC Hgb Hct MCHC RDW Lymph % (Auto) [place] % (Auto) Lymph # (Auto) [place] # (Auto) Eos # (Auto) Seg Neutrophils % Seg Neuts % (Manual) Lymphocytes % (Manual) Monocytes % (Manual) Nucleated RBC % Seg Neutrophils # Seg Neutrophils # Man Lymphocytes # (Manual) Monocytes # (Manual) Eosinophils # (Manual) PT INR APTT D-Dimer Heparin Anti-Xa Level ABG pH POC ABG pCO2 POC ABG pO2 79.0 L ABG pO2 ABG HCO3 ABG Hemoglobin 11.7 L ABG Oxyhemoglobin ABG Sodium 128.1 L ABG Potassium 6.6 H ABG Chloride ABG Glucose 124 H Carboxyhemoglobin Sodium Potassium 7.3 H* Chloride Carbon Dioxide BUN Creatinine Glucose POC Glucose 115 H Lactic Acid Calcium Phosphorus Magnesium Ferritin Direct Bilirubin AST ALT Alkaline Phosphatase Lactate Dehydrogenase Total Creatine Kinase C-Reactive Protein Total Protein Albumin Triglycerides Arterial Blood Glucose 124 H Arterial Blood Ionized Calcium 4.2 L Urine Creatinine Urine Chloride Vancomycin Trough Coronavirus (PCR) Crossmatch 06/28/20 06/28/20 06/28/20 10:03 10:03 11:51 WBC 33.6 H RBC 3.03 L Hgb 8.9 L Hct 27.0 L MCHC RDW Lymph % (Auto) [place] % (Auto) Lymph # (Auto) [place] # (Auto) Eos # (Auto) Seg Neutrophils % Seg Neuts % (Manual) Lymphocytes % (Manual) Monocytes % (Manual) Nucleated RBC % Seg Neutrophils # Seg Neutrophils # Man Lymphocytes # (Manual) Monocytes # (Manual) Eosinophils # (Manual) PT INR APTT D-Dimer Heparin Anti-Xa Level ABG pH POC ABG pCO2 POC ABG pO2 ABG pO2 ABG HCO3 ABG Hemoglobin ABG Oxyhemoglobin ABG Sodium ABG Potassium ABG Chloride ABG Glucose Carboxyhemoglobin Sodium 136 L Potassium 6.5 H* Chloride Carbon Dioxide 20 L BUN 129 H Creatinine 5.8 H Glucose 113 H POC Glucose 107 H Lactic Acid Calcium 7.6 L Phosphorus Magnesium Ferritin Direct Bilirubin AST ALT Alkaline Phosphatase Lactate Dehydrogenase Total Creatine Kinase C-Reactive Protein Total Protein Albumin Triglycerides Arterial Blood Glucose Arterial Blood Ionized Calcium Urine Creatinine Urine Chloride Vancomycin Trough Coronavirus (PCR) Crossmatch 06/28/20 06/28/20 06/29/20 17:45 Unknown 03:15 WBC RBC Hgb Hct MCHC RDW Lymph % (Auto) [place] % (Auto) Lymph # (Auto) [place] # (Auto) Eos # (Auto) Seg Neutrophils % Seg Neuts % (Manual) Lymphocytes % (Manual) Monocytes % (Manual) Nucleated RBC % Seg Neutrophils # Seg Neutrophils # Man Lymphocytes # (Manual) Monocytes # (Manual) Eosinophils # (Manual) PT INR APTT D-Dimer Heparin Anti-Xa Level ABG pH POC ABG pCO2 POC ABG pO2 ABG pO2 ABG HCO3 ABG Hemoglobin 7.8 L ABG Oxyhemoglobin ABG Sodium 127.4 L ABG Potassium 5.5 H ABG Chloride 97.0 L ABG Glucose 96 H Carboxyhemoglobin Sodium Potassium 5.4 H Chloride Carbon Dioxide BUN Creatinine Glucose POC Glucose 117 H Lactic Acid Calcium Phosphorus Magnesium Ferritin Direct Bilirubin AST ALT Alkaline Phosphatase Lactate Dehydrogenase Total Creatine Kinase C-Reactive Protein Total Protein Albumin Triglycerides Arterial Blood Glucose 96 H Arterial Blood Ionized Calcium 4.0 L Urine Creatinine Urine Chloride Vancomycin Trough Coronavirus (PCR) Crossmatch 06/29/20 06/29/20 06/29/20 03:45 Unknown Unknown WBC RBC Hgb Hct MCHC RDW Lymph % (Auto) [place] % (Auto) Lymph # (Auto) [place] # (Auto) Eos # (Auto) Seg Neutrophils % Seg Neuts % (Manual) Lymphocytes % (Manual) Monocytes % (Manual) Nucleated RBC % Seg Neutrophils # Seg Neutrophils # Man Lymphocytes # (Manual) Monocytes # (Manual) Eosinophils # (Manual) PT INR APTT D-Dimer Heparin Anti-Xa Level ABG pH POC ABG pCO2 POC ABG pO2 ABG pO2 ABG HCO3 ABG Hemoglobin ABG Oxyhemoglobin ABG Sodium ABG Potassium ABG Chloride ABG Glucose Carboxyhemoglobin Sodium 135 L Potassium 6.0 H 6.1 H* Chloride 94.8 L Carbon Dioxide BUN 109 H 114 H Creatinine 5.5 H Glucose POC Glucose Lactic Acid Calcium 7.4 L Phosphorus Magnesium Ferritin Direct Bilirubin AST 47 H ALT Alkaline Phosphatase Lactate Dehydrogenase Total Creatine Kinase C-Reactive Protein Total Protein 4.9 L Albumin 2.2 L Triglycerides Arterial Blood Glucose Arterial Blood Ionized Calcium Urine Creatinine Urine Chloride Vancomycin Trough Coronavirus (PCR) Crossmatch 06/29/20 06/29/20 06/30/20 Unknown Unknown 03:32 WBC 20.7 H RBC 2.57 L Hgb 7.6 L Hct 23.0 L MCHC RDW Lymph % (Auto) [place] % (Auto) Lymph # (Auto) [place] # (Auto) Eos # (Auto) Seg Neutrophils % Seg Neuts % (Manual) Lymphocytes % (Manual) Monocytes % (Manual) Nucleated RBC % Seg Neutrophils # Seg Neutrophils # Man Lymphocytes # (Manual) Monocytes # (Manual) Eosinophils # (Manual) PT INR APTT D-Dimer Heparin Anti-Xa Level ABG pH POC ABG pCO2 POC ABG pO2 ABG pO2 ABG HCO3 ABG Hemoglobin 11.4 L ABG Oxyhemoglobin ABG Sodium 130.1 L ABG Potassium 5.0 H ABG Chloride ABG Glucose Carboxyhemoglobin Sodium Potassium Chloride Carbon Dioxide BUN Creatinine Glucose POC Glucose Lactic Acid Calcium Phosphorus Magnesium Ferritin Direct Bilirubin AST ALT Alkaline Phosphatase Lactate Dehydrogenase Total Creatine Kinase 618 H C-Reactive Protein Total Protein Albumin Triglycerides Arterial Blood Glucose Arterial Blood Ionized Calcium 3.9 L Urine Creatinine Urine Chloride Vancomycin Trough Coronavirus (PCR) Crossmatch 06/30/20 06/30/20 06/30/20 03:50 03:50 11:39 WBC 13.1 H RBC Hgb Hct MCHC RDW Lymph % (Auto) [place] % (Auto) Lymph # (Auto) [place] # (Auto) Eos # (Auto) Seg Neutrophils % Seg Neuts % (Manual) 95.0 H Lymphocytes % (Manual) 3.0 L Monocytes % (Manual) Nucleated RBC % Seg Neutrophils # Seg Neutrophils # Man 12.4 H Lymphocytes # (Manual) 0.4 L Monocytes # (Manual) Eosinophils # (Manual) PT INR APTT D-Dimer Heparin Anti-Xa Level ABG pH POC ABG pCO2 POC ABG pO2 ABG pO2 ABG HCO3 ABG Hemoglobin ABG Oxyhemoglobin ABG Sodium ABG Potassium ABG Chloride ABG Glucose Carboxyhemoglobin Sodium 135 L Potassium 5.4 H D Chloride 93.6 L Carbon Dioxide BUN 85 H Creatinine 4.6 H Glucose POC Glucose 111 H Lactic Acid Calcium 7.1 L Phosphorus 9.40 H Magnesium Ferritin Direct Bilirubin AST ALT Alkaline Phosphatase Lactate Dehydrogenase Total Creatine Kinase C-Reactive Protein Total Protein Albumin Triglycerides Arterial Blood Glucose Arterial Blood Ionized Calcium Urine Creatinine Urine Chloride Vancomycin Trough Coronavirus (PCR) Crossmatch 06/30/20 06/30/20 07/01/20 13:12 Unknown 03:19 WBC RBC Hgb 7.8 L D Hct 23.2 L D MCHC RDW Lymph % (Auto) [place] % (Auto) Lymph # (Auto) [place] # (Auto) Eos # (Auto) Seg Neutrophils % Seg Neuts % (Manual) Lymphocytes % (Manual) Monocytes % (Manual) Nucleated RBC % Seg Neutrophils # Seg Neutrophils # Man Lymphocytes # (Manual) Monocytes # (Manual) Eosinophils # (Manual) PT INR APTT D-Dimer Heparin Anti-Xa Level ABG pH 7.461 H POC ABG pCO2 POC ABG pO2 77.2 L ABG pO2 ABG HCO3 ABG Hemoglobin 6.9 L ABG Oxyhemoglobin ABG Sodium 128.5 L ABG Potassium ABG Chloride 97.0 L ABG Glucose Carboxyhemoglobin Sodium Potassium Chloride Carbon Dioxide BUN Creatinine Glucose POC Glucose Lactic Acid Calcium Phosphorus Magnesium Ferritin Direct Bilirubin AST ALT Alkaline Phosphatase Lactate Dehydrogenase Total Creatine Kinase C-Reactive Protein Total Protein Albumin Triglycerides Arterial Blood Glucose Arterial Blood Ionized Calcium 3.7 L Urine Creatinine Urine Chloride Vancomycin Trough Coronavirus (PCR) Positive A Crossmatch 07/01/20 07/01/20 07/01/20 06:00 06:00 11:04 WBC 16.7 H RBC 2.16 L Hgb 6.4 L Hct 19.2 L* MCHC RDW Lymph % (Auto) [place] % (Auto) Lymph # (Auto) [place] # (Auto) Eos # (Auto) Seg Neutrophils % Seg Neuts % (Manual) Lymphocytes % (Manual) Monocytes % (Manual) Nucleated RBC % Seg Neutrophils # Seg Neutrophils # Man Lymphocytes # (Manual) Monocytes # (Manual) Eosinophils # (Manual) PT INR APTT D-Dimer Heparin Anti-Xa Level ABG pH POC ABG pCO2 POC ABG pO2 ABG pO2 ABG HCO3 ABG Hemoglobin ABG Oxyhemoglobin ABG Sodium ABG Potassium ABG Chloride ABG Glucose Carboxyhemoglobin Sodium 136 L Potassium Chloride 95.8 L Carbon Dioxide BUN 72 H Creatinine 4.3 H Glucose POC Glucose Lactic Acid Calcium 6.7 L Phosphorus Magnesium Ferritin Direct Bilirubin AST ALT Alkaline Phosphatase Lactate Dehydrogenase Total Creatine Kinase C-Reactive Protein Total Protein Albumin Triglycerides 250 H Arterial Blood Glucose Arterial Blood Ionized Calcium Urine Creatinine Urine Chloride Vancomycin Trough Coronavirus (PCR) Crossmatch See Detail 07/02/20 07/02/20 07/02/20 04:44 06:00 11:33 WBC 14.6 H RBC 2.47 L Hgb 7.4 L Hct 21.8 L MCHC RDW Lymph % (Auto) [place] % (Auto) Lymph # (Auto) [place] # (Auto) Eos # (Auto) Seg Neutrophils % Seg Neuts % (Manual) Lymphocytes % (Manual) Monocytes % (Manual) Nucleated RBC % Seg Neutrophils # Seg Neutrophils # Man Lymphocytes # (Manual) Monocytes # (Manual) Eosinophils # (Manual) PT INR APTT D-Dimer Heparin Anti-Xa Level ABG pH 7.457 H POC ABG pCO2 POC ABG pO2 79.4 L ABG pO2 ABG HCO3 ABG Hemoglobin 8.5 L ABG Oxyhemoglobin ABG Sodium 128.4 L ABG Potassium ABG Chloride 97.0 L ABG Glucose 100 H Carboxyhemoglobin Sodium 133 L Potassium 5.2 H Chloride 93.3 L Carbon Dioxide BUN 66 H Creatinine 4.1 H Glucose 102 H POC Glucose Lactic Acid Calcium 7.2 L Phosphorus Magnesium Ferritin Direct Bilirubin AST ALT Alkaline Phosphatase Lactate Dehydrogenase Total Creatine Kinase C-Reactive Protein Total Protein Albumin Triglycerides Arterial Blood Glucose 100 H Arterial Blood Ionized Calcium 3.9 L Urine Creatinine Urine Chloride Vancomycin Trough Coronavirus (PCR) Crossmatch 07/02/20 07/03/20 07/03/20 11:33 03:54 09:15 WBC 16.6 H RBC 2.44 L Hgb 7.3 L Hct 21.4 L MCHC RDW Lymph % (Auto) [place] % (Auto) Lymph # (Auto) [place] # (Auto) Eos # (Auto) Seg Neutrophils % Seg Neuts % (Manual) Lymphocytes % (Manual) Monocytes % (Manual) Nucleated RBC % Seg Neutrophils # Seg Neutrophils # Man Lymphocytes # (Manual) Monocytes # (Manual) Eosinophils # (Manual) PT INR APTT D-Dimer Heparin Anti-Xa Level ABG pH POC ABG pCO2 POC ABG pO2 66.1 L ABG pO2 ABG HCO3 ABG Hemoglobin 8.0 L ABG Oxyhemoglobin ABG Sodium 124.6 L ABG Potassium 5.5 H ABG Chloride 96.0 L ABG Glucose 111 H Carboxyhemoglobin Sodium Potassium Chloride Carbon Dioxide BUN Creatinine Glucose POC Glucose Lactic Acid Calcium Phosphorus Magnesium Ferritin Direct Bilirubin 0.7 H AST 94 H ALT 60 H Alkaline Phosphatase Lactate Dehydrogenase Total Creatine Kinase C-Reactive Protein Total Protein 4.4 L Albumin 1.9 L Triglycerides Arterial Blood Glucose 111 H Arterial Blood Ionized Calcium 3.8 L Urine Creatinine Urine Chloride Vancomycin Trough Coronavirus (PCR) Crossmatch 07/03/20 07/03/20 07/03/20 09:15 10:10 14:50 WBC RBC Hgb Hct MCHC RDW Lymph % (Auto) [place] % (Auto) Lymph # (Auto) [place] # (Auto) Eos # (Auto) Seg Neutrophils % Seg Neuts % (Manual) Lymphocytes % (Manual) Monocytes % (Manual) Nucleated RBC % Seg Neutrophils # Seg Neutrophils # Man Lymphocytes # (Manual) Monocytes # (Manual) Eosinophils # (Manual) PT INR APTT D-Dimer 6608.00 H Heparin Anti-Xa Level ABG pH POC ABG pCO2 POC ABG pO2 ABG pO2 ABG HCO3 ABG Hemoglobin ABG Oxyhemoglobin ABG Sodium ABG Potassium ABG Chloride ABG Glucose Carboxyhemoglobin Sodium 133 L Potassium 6.2 H* Chloride 93.1 L Carbon Dioxide BUN 89 H Creatinine 5.1 H Glucose POC Glucose Lactic Acid Calcium 7.0 L Phosphorus Magnesium Ferritin Direct Bilirubin AST ALT Alkaline Phosphatase Lactate Dehydrogenase Total Creatine Kinase C-Reactive Protein Total Protein Albumin Triglycerides Arterial Blood Glucose Arterial Blood Ionized Calcium Urine Creatinine Urine Chloride Vancomycin Trough Coronavirus (PCR) Positive A Crossmatch 07/03/20 07/03/20 07/03/20 14:50 14:50 14:50 WBC RBC Hgb Hct MCHC RDW Lymph % (Auto) [place] % (Auto) Lymph # (Auto) [place] # (Auto) Eos # (Auto) Seg Neutrophils % Seg Neuts % (Manual) Lymphocytes % (Manual) Monocytes % (Manual) Nucleated RBC % Seg Neutrophils # Seg Neutrophils # Man Lymphocytes # (Manual) Monocytes # (Manual) Eosinophils # (Manual) PT INR APTT D-Dimer Heparin Anti-Xa Level ABG pH POC ABG pCO2 POC ABG pO2 ABG pO2 ABG HCO3 ABG Hemoglobin ABG Oxyhemoglobin ABG Sodium ABG Potassium ABG Chloride ABG Glucose Carboxyhemoglobin Sodium Potassium Chloride Carbon Dioxide BUN Creatinine Glucose POC Glucose Lactic Acid < 0.20 L Calcium Phosphorus Magnesium Ferritin 1171.0 H Direct Bilirubin AST ALT Alkaline Phosphatase Lactate Dehydrogenase 525 H Total Creatine Kinase C-Reactive Protein 31.50 H Total Protein Albumin Triglycerides Arterial Blood Glucose Arterial Blood Ionized Calcium Urine Creatinine Urine Chloride Vancomycin Trough Coronavirus (PCR) Crossmatch 07/03/20 07/04/20 07/04/20 16:47 05:20 05:20 WBC 11.8 H RBC 2.32 L Hgb 6.7 L Hct 20.8 L MCHC RDW Lymph % (Auto) 2.6 L [place] % (Auto) Lymph # (Auto) 0.3 L [place] # (Auto) Eos # (Auto) Seg Neutrophils % Seg Neuts % (Manual) Lymphocytes % (Manual) Monocytes % (Manual) Nucleated RBC % Seg Neutrophils # 11.0 H Seg Neutrophils # Man Lymphocytes # (Manual) Monocytes # (Manual) Eosinophils # (Manual) PT INR APTT D-Dimer Heparin Anti-Xa Level ABG pH POC ABG pCO2 POC ABG pO2 ABG pO2 ABG HCO3 ABG Hemoglobin ABG Oxyhemoglobin ABG Sodium ABG Potassium ABG Chloride ABG Glucose Carboxyhemoglobin Sodium Potassium 6.0 H Chloride 97.8 L Carbon Dioxide BUN 75 H Creatinine 4.5 H Glucose 121 H POC Glucose 107 H Lactic Acid Calcium 7.9 L Phosphorus Magnesium Ferritin Direct Bilirubin AST ALT Alkaline Phosphatase Lactate Dehydrogenase Total Creatine Kinase C-Reactive Protein Total Protein Albumin Triglycerides Arterial Blood Glucose Arterial Blood Ionized Calcium Urine Creatinine Urine Chloride Vancomycin Trough Coronavirus (PCR) Crossmatch 07/04/20 07/04/20 07/04/20 05:20 05:50 09:25 WBC RBC Hgb Hct MCHC RDW Lymph % (Auto) [place] % (Auto) Lymph # (Auto) [place] # (Auto) Eos # (Auto) Seg Neutrophils % Seg Neuts % (Manual) Lymphocytes % (Manual) Monocytes % (Manual) Nucleated RBC % Seg Neutrophils # Seg Neutrophils # Man Lymphocytes # (Manual) Monocytes # (Manual) Eosinophils # (Manual) PT INR APTT D-Dimer Heparin Anti-Xa Level ABG pH 7.324 L POC ABG pCO2 POC ABG pO2 ABG pO2 98.9 H ABG HCO3 26.8 H ABG Hemoglobin < 5.1 L ABG Oxyhemoglobin ABG Sodium ABG Potassium ABG Chloride ABG Glucose Carboxyhemoglobin Sodium Potassium Chloride Carbon Dioxide BUN Creatinine Glucose POC Glucose 114 H Lactic Acid Calcium Phosphorus Magnesium Ferritin Direct Bilirubin AST ALT Alkaline Phosphatase Lactate Dehydrogenase Total Creatine Kinase C-Reactive Protein Total Protein Albumin Triglycerides Arterial Blood Glucose Arterial Blood Ionized Calcium Urine Creatinine Urine Chloride Vancomycin Trough Coronavirus (PCR) Crossmatch See Detail 07/04/20 07/04/20 07/04/20 12:33 17:41 23:04 WBC RBC Hgb Hct MCHC RDW Lymph % (Auto) [place] % (Auto) Lymph # (Auto) [place] # (Auto) Eos # (Auto) Seg Neutrophils % Seg Neuts % (Manual) Lymphocytes % (Manual) Monocytes % (Manual) Nucleated RBC % Seg Neutrophils # Seg Neutrophils # Man Lymphocytes # (Manual) Monocytes # (Manual) Eosinophils # (Manual) PT INR APTT D-Dimer Heparin Anti-Xa Level ABG pH POC ABG pCO2 POC ABG pO2 ABG pO2 ABG HCO3 ABG Hemoglobin ABG Oxyhemoglobin ABG Sodium ABG Potassium ABG Chloride ABG Glucose Carboxyhemoglobin Sodium Potassium Chloride Carbon Dioxide BUN Creatinine Glucose POC Glucose 119 H 109 H 116 H Lactic Acid Calcium Phosphorus Magnesium Ferritin Direct Bilirubin AST ALT Alkaline Phosphatase Lactate Dehydrogenase Total Creatine Kinase C-Reactive Protein Total Protein Albumin Triglycerides Arterial Blood Glucose Arterial Blood Ionized Calcium Urine Creatinine Urine Chloride Vancomycin Trough Coronavirus (PCR) Crossmatch 07/05/20 07/05/20 07/05/20 04:30 08:21 08:21 WBC RBC 2.77 L Hgb 7.9 L Hct 23.9 L MCHC RDW 16.7 H Lymph % (Auto) 7.5 L [place] % (Auto) Lymph # (Auto) 0.7 L [place] # (Auto) Eos # (Auto) Seg Neutrophils % 85.8 H Seg Neuts % (Manual) Lymphocytes % (Manual) Monocytes % (Manual) Nucleated RBC % Seg Neutrophils # 7.8 H Seg Neutrophils # Man Lymphocytes # (Manual) Monocytes # (Manual) Eosinophils # (Manual) PT INR APTT D-Dimer Heparin Anti-Xa Level ABG pH 7.295 L POC ABG pCO2 POC ABG pO2 ABG pO2 151.9 H ABG HCO3 26.8 H ABG Hemoglobin 7.3 L ABG Oxyhemoglobin ABG Sodium ABG Potassium ABG Chloride ABG Glucose Carboxyhemoglobin Sodium Potassium Chloride Carbon Dioxide BUN Creatinine Glucose POC Glucose Lactic Acid Calcium Phosphorus Magnesium Ferritin Direct Bilirubin AST ALT Alkaline Phosphatase Lactate Dehydrogenase Total Creatine Kinase C-Reactive Protein Total Protein Albumin Triglycerides 258 H Arterial Blood Glucose Arterial Blood Ionized Calcium Urine Creatinine Urine Chloride Vancomycin Trough Coronavirus (PCR) Crossmatch 07/05/20 07/05/20 07/06/20 08:21 12:12 04:29 WBC RBC Hgb Hct MCHC RDW Lymph % (Auto) [place] % (Auto) Lymph # (Auto) [place] # (Auto) Eos # (Auto) Seg Neutrophils % Seg Neuts % (Manual) Lymphocytes % (Manual) Monocytes % (Manual) Nucleated RBC % Seg Neutrophils # Seg Neutrophils # Man Lymphocytes # (Manual) Monocytes # (Manual) Eosinophils # (Manual) PT INR APTT D-Dimer Heparin Anti-Xa Level ABG pH 7.291 L POC ABG pCO2 51.3 H POC ABG pO2 ABG pO2 ABG HCO3 ABG Hemoglobin 8.5 L ABG Oxyhemoglobin ABG Sodium 129.6 L ABG Potassium 4.8 H ABG Chloride 96.0 L ABG Glucose Carboxyhemoglobin Sodium 133 L Potassium 5.6 H Chloride 94.4 L Carbon Dioxide BUN 80 H Creatinine 4.2 H Glucose 114 H POC Glucose 106 H Lactic Acid Calcium 7.6 L Phosphorus Magnesium Ferritin Direct Bilirubin 0.5 H AST 75 H ALT 86 H Alkaline Phosphatase Lactate Dehydrogenase Total Creatine Kinase C-Reactive Protein Total Protein 5.6 L D Albumin 1.9 L Triglycerides Arterial Blood Glucose Arterial Blood Ionized Calcium 4.2 L Urine Creatinine Urine Chloride Vancomycin Trough Coronavirus (PCR) Crossmatch 07/06/20 07/06/20 07/06/20 11:35 11:35 12:16 WBC RBC 2.54 L Hgb 7.5 L Hct 21.5 L MCHC 35 H RDW 15.7 H Lymph % (Auto) [place] % (Auto) Lymph # (Auto) [place] # (Auto) Eos # (Auto) Seg Neutrophils % Seg Neuts % (Manual) Lymphocytes % (Manual) Monocytes % (Manual) Nucleated RBC % Seg Neutrophils # Seg Neutrophils # Man Lymphocytes # (Manual) Monocytes # (Manual) Eosinophils # (Manual) PT INR APTT D-Dimer Heparin Anti-Xa Level ABG pH POC ABG pCO2 POC ABG pO2 ABG pO2 ABG HCO3 ABG Hemoglobin ABG Oxyhemoglobin ABG Sodium ABG Potassium ABG Chloride ABG Glucose Carboxyhemoglobin Sodium 130 L Potassium Chloride 92.2 L Carbon Dioxide 19 L D BUN 107 H Creatinine 5.1 H Glucose 106 H POC Glucose 106 H Lactic Acid Calcium 7.5 L Phosphorus Magnesium Ferritin Direct Bilirubin AST ALT Alkaline Phosphatase Lactate Dehydrogenase Total Creatine Kinase C-Reactive Protein Total Protein Albumin Triglycerides Arterial Blood Glucose Arterial Blood Ionized Calcium Urine Creatinine Urine Chloride Vancomycin Trough Coronavirus (PCR) Crossmatch 07/06/20 07/06/20 07/06/20 17:01 21:56 23:41 WBC RBC Hgb Hct MCHC RDW Lymph % (Auto) [place] % (Auto) Lymph # (Auto) [place] # (Auto) Eos # (Auto) Seg Neutrophils % Seg Neuts % (Manual) Lymphocytes % (Manual) Monocytes % (Manual) Nucleated RBC % Seg Neutrophils # Seg Neutrophils # Man Lymphocytes # (Manual) Monocytes # (Manual) Eosinophils # (Manual) PT INR APTT D-Dimer Heparin Anti-Xa Level ABG pH POC ABG pCO2 POC ABG pO2 ABG pO2 ABG HCO3 ABG Hemoglobin ABG Oxyhemoglobin ABG Sodium ABG Potassium ABG Chloride ABG Glucose Carboxyhemoglobin Sodium 135 L Potassium 5.1 H Chloride Carbon Dioxide BUN 73 H Creatinine 4.0 H Glucose 112 H POC Glucose 109 H 111 H Lactic Acid Calcium 7.8 L Phosphorus Magnesium Ferritin Direct Bilirubin AST ALT Alkaline Phosphatase Lactate Dehydrogenase Total Creatine Kinase C-Reactive Protein Total Protein Albumin Triglycerides Arterial Blood Glucose Arterial Blood Ionized Calcium Urine Creatinine Urine Chloride Vancomycin Trough Coronavirus (PCR) Crossmatch 07/07/20 07/07/20 07/07/20 04:18 05:04 05:29 WBC RBC 2.46 L Hgb 7.6 L Hct 21.5 L MCHC 35 H RDW 16.5 H Lymph % (Auto) [place] % (Auto) Lymph # (Auto) [place] # (Auto) Eos # (Auto) Seg Neutrophils % Seg Neuts % (Manual) 82.0 H Lymphocytes % (Manual) Monocytes % (Manual) Nucleated RBC % 1.0 H Seg Neutrophils # Seg Neutrophils # Man Lymphocytes # (Manual) 1.1 L Monocytes # (Manual) Eosinophils # (Manual) PT INR APTT D-Dimer Heparin Anti-Xa Level ABG pH POC ABG pCO2 POC ABG pO2 79.6 L ABG pO2 ABG HCO3 ABG Hemoglobin 8.2 L ABG Oxyhemoglobin ABG Sodium 133.3 L ABG Potassium 4.7 H ABG Chloride ABG Glucose 135 H Carboxyhemoglobin Sodium Potassium Chloride Carbon Dioxide BUN Creatinine Glucose POC Glucose 112 H Lactic Acid Calcium Phosphorus Magnesium Ferritin Direct Bilirubin AST ALT Alkaline Phosphatase Lactate Dehydrogenase Total Creatine Kinase C-Reactive Protein Total Protein Albumin Triglycerides Arterial Blood Glucose 135 H Arterial Blood Ionized Calcium 4.5 L Urine Creatinine Urine Chloride Vancomycin Trough Coronavirus (PCR) Crossmatch 07/07/20 07/07/20 07/07/20 10:17 12:18 17:43 WBC RBC Hgb Hct MCHC RDW Lymph % (Auto) [place] % (Auto) Lymph # (Auto) [place] # (Auto) Eos # (Auto) Seg Neutrophils % Seg Neuts % (Manual) Lymphocytes % (Manual) Monocytes % (Manual) Nucleated RBC % Seg Neutrophils # Seg Neutrophils # Man Lymphocytes # (Manual) Monocytes # (Manual) Eosinophils # (Manual) PT INR APTT D-Dimer Heparin Anti-Xa Level ABG pH POC ABG pCO2 POC ABG pO2 ABG pO2 ABG HCO3 ABG Hemoglobin ABG Oxyhemoglobin ABG Sodium ABG Potassium ABG Chloride ABG Glucose Carboxyhemoglobin Sodium 136 L Potassium Chloride 96.8 L Carbon Dioxide BUN 82 H Creatinine 4.3 H Glucose 129 H POC Glucose 108 H 116 H Lactic Acid Calcium 7.8 L Phosphorus Magnesium Ferritin Direct Bilirubin AST ALT Alkaline Phosphatase Lactate Dehydrogenase Total Creatine Kinase C-Reactive Protein Total Protein Albumin Triglycerides Arterial Blood Glucose Arterial Blood Ionized Calcium Urine Creatinine Urine Chloride Vancomycin Trough Coronavirus (PCR) Crossmatch 07/07/20 07/08/20 07/08/20 23:31 04:00 04:00 WBC RBC 2.52 L Hgb 7.3 L Hct 22.2 L MCHC RDW 16.6 H Lymph % (Auto) 11.5 L [place] % (Auto) Lymph # (Auto) [place] # (Auto) Eos # (Auto) Seg Neutrophils % 78.2 H Seg Neuts % (Manual) Lymphocytes % (Manual) Monocytes % (Manual) Nucleated RBC % Seg Neutrophils # 8.0 H Seg Neutrophils # Man Lymphocytes # (Manual) Monocytes # (Manual) Eosinophils # (Manual) PT INR APTT D-Dimer Heparin Anti-Xa Level ABG pH POC ABG pCO2 POC ABG pO2 ABG pO2 ABG HCO3 ABG Hemoglobin ABG Oxyhemoglobin ABG Sodium ABG Potassium ABG Chloride ABG Glucose Carboxyhemoglobin Sodium 132 L Potassium 5.4 H Chloride 92.5 L Carbon Dioxide BUN 98 H Creatinine 4.9 H Glucose 105 H POC Glucose 117 H Lactic Acid Calcium 7.9 L Phosphorus Magnesium Ferritin Direct Bilirubin AST ALT Alkaline Phosphatase Lactate Dehydrogenase Total Creatine Kinase C-Reactive Protein Total Protein Albumin Triglycerides Arterial Blood Glucose Arterial Blood Ionized Calcium Urine Creatinine Urine Chloride Vancomycin Trough Coronavirus (PCR) Crossmatch 07/08/20 07/08/20 07/08/20 04:09 11:34 17:05 WBC RBC Hgb Hct MCHC RDW Lymph % (Auto) [place] % (Auto) Lymph # (Auto) [place] # (Auto) Eos # (Auto) Seg Neutrophils % Seg Neuts % (Manual) Lymphocytes % (Manual) Monocytes % (Manual) Nucleated RBC % Seg Neutrophils # Seg Neutrophils # Man Lymphocytes # (Manual) Monocytes # (Manual) Eosinophils # (Manual) PT INR APTT D-Dimer Heparin Anti-Xa Level ABG pH 7.220 L POC ABG pCO2 60.5 H POC ABG pO2 ABG pO2 ABG HCO3 ABG Hemoglobin 8.2 L ABG Oxyhemoglobin ABG Sodium 131.3 L ABG Potassium 5.2 H ABG Chloride ABG Glucose 103 H Carboxyhemoglobin Sodium Potassium Chloride Carbon Dioxide BUN Creatinine Glucose POC Glucose 140 H 125 H Lactic Acid Calcium Phosphorus Magnesium Ferritin Direct Bilirubin AST ALT Alkaline Phosphatase Lactate Dehydrogenase Total Creatine Kinase C-Reactive Protein Total Protein Albumin Triglycerides Arterial Blood Glucose 103 H Arterial Blood Ionized Calcium 4.3 L Urine Creatinine Urine Chloride Vancomycin Trough Coronavirus (PCR) Crossmatch 07/08/20 07/08/20 07/09/20 20:21 23:43 05:10 WBC RBC Hgb Hct MCHC RDW Lymph % (Auto) [place] % (Auto) Lymph # (Auto) [place] # (Auto) Eos # (Auto) Seg Neutrophils % Seg Neuts % (Manual) Lymphocytes % (Manual) Monocytes % (Manual) Nucleated RBC % Seg Neutrophils # Seg Neutrophils # Man Lymphocytes # (Manual) Monocytes # (Manual) Eosinophils # (Manual) PT INR APTT D-Dimer Heparin Anti-Xa Level ABG pH 7.20 L POC ABG pCO2 69.8 H POC ABG pO2 138.9 H 76.1 L ABG pO2 ABG HCO3 ABG Hemoglobin 11.9 L 8.4 L ABG Oxyhemoglobin ABG Sodium 133.1 L 131.2 L ABG Potassium 5.0 H 4.7 H ABG Chloride ABG Glucose 120 H 102 H Carboxyhemoglobin Sodium Potassium Chloride Carbon Dioxide BUN Creatinine Glucose POC Glucose 118 H Lactic Acid Calcium Phosphorus Magnesium Ferritin Direct Bilirubin AST ALT Alkaline Phosphatase Lactate Dehydrogenase Total Creatine Kinase C-Reactive Protein Total Protein Albumin Triglycerides Arterial Blood Glucose 120 H 102 H Arterial Blood Ionized Calcium 4.4 L 4.3 L Urine Creatinine Urine Chloride Vancomycin Trough Coronavirus (PCR) Crossmatch 07/09/20 07/09/20 07/09/20 11:51 17:04 21:00 WBC RBC Hgb Hct MCHC RDW Lymph % (Auto) [place] % (Auto) Lymph # (Auto) [place] # (Auto) Eos # (Auto) Seg Neutrophils % Seg Neuts % (Manual) Lymphocytes % (Manual) Monocytes % (Manual) Nucleated RBC % Seg Neutrophils # Seg Neutrophils # Man Lymphocytes # (Manual) Monocytes # (Manual) Eosinophils # (Manual) PT INR APTT D-Dimer Heparin Anti-Xa Level ABG pH POC ABG pCO2 POC ABG pO2 114.2 H ABG pO2 ABG HCO3 ABG Hemoglobin 7.8 L ABG Oxyhemoglobin ABG Sodium 132.3 L ABG Potassium 4.6 H ABG Chloride ABG Glucose Carboxyhemoglobin Sodium Potassium Chloride Carbon Dioxide BUN Creatinine Glucose POC Glucose 113 H 111 H Lactic Acid Calcium Phosphorus Magnesium Ferritin Direct Bilirubin AST ALT Alkaline Phosphatase Lactate Dehydrogenase Total Creatine Kinase C-Reactive Protein Total Protein Albumin Triglycerides Arterial Blood Glucose Arterial Blood Ionized Calcium 4.4 L Urine Creatinine Urine Chloride Vancomycin Trough Coronavirus (PCR) Crossmatch 07/10/20 07/10/20 07/10/20 03:49 03:55 03:55 WBC 18.1 H RBC 2.37 L Hgb 6.8 L Hct 20.7 L MCHC RDW 16.9 H Lymph % (Auto) [place] % (Auto) Lymph # (Auto) [place] # (Auto) Eos # (Auto) Seg Neutrophils % Seg Neuts % (Manual) 79.0 H Lymphocytes % (Manual) 10.0 L Monocytes % (Manual) Nucleated RBC % 1.0 H Seg Neutrophils # Seg Neutrophils # Man 14.3 H Lymphocytes # (Manual) Monocytes # (Manual) Eosinophils # (Manual) 0.7 H PT INR APTT D-Dimer Heparin Anti-Xa Level ABG pH POC ABG pCO2 POC ABG pO2 ABG pO2 ABG HCO3 ABG Hemoglobin 7.7 L ABG Oxyhemoglobin ABG Sodium 130.3 L ABG Potassium 4.6 H ABG Chloride ABG Glucose Carboxyhemoglobin Sodium 136 L Potassium Chloride 96.0 L Carbon Dioxide BUN 76 H Creatinine 3.6 H Glucose POC Glucose Lactic Acid Calcium 7.4 L Phosphorus Magnesium Ferritin Direct Bilirubin AST ALT Alkaline Phosphatase Lactate Dehydrogenase Total Creatine Kinase C-Reactive Protein Total Protein Albumin Triglycerides Arterial Blood Glucose Arterial Blood Ionized Calcium 4.2 L Urine Creatinine Urine Chloride Vancomycin Trough Coronavirus (PCR) Crossmatch 07/10/20 07/11/20 07/11/20 13:24 04:08 06:52 WBC 26.0 H RBC 2.91 L Hgb 8.2 L Hct 24.8 L MCHC RDW 17.2 H Lymph % (Auto) [place] % (Auto) Lymph # (Auto) [place] # (Auto) Eos # (Auto) Seg Neutrophils % Seg Neuts % (Manual) Lymphocytes % (Manual) 1.0 L Monocytes % (Manual) 11.0 H Nucleated RBC % Seg Neutrophils # Seg Neutrophils # Man 16.9 H Lymphocytes # (Manual) 0.3 L Monocytes # (Manual) 2.9 H Eosinophils # (Manual) 1.0 H PT INR APTT D-Dimer Heparin Anti-Xa Level ABG pH POC ABG pCO2 POC ABG pO2 ABG pO2 ABG HCO3 ABG Hemoglobin 8.5 L ABG Oxyhemoglobin ABG Sodium 130.6 L ABG Potassium 4.9 H ABG Chloride ABG Glucose 105 H Carboxyhemoglobin Sodium Potassium Chloride Carbon Dioxide BUN Creatinine Glucose POC Glucose Lactic Acid Calcium Phosphorus Magnesium Ferritin Direct Bilirubin AST ALT Alkaline Phosphatase Lactate Dehydrogenase Total Creatine Kinase C-Reactive Protein Total Protein Albumin Triglycerides Arterial Blood Glucose 105 H Arterial Blood Ionized Calcium 4.1 L Urine Creatinine Urine Chloride Vancomycin Trough Coronavirus (PCR) Crossmatch See Detail 07/11/20 07/11/20 07/11/20 06:52 08:48 11:39 WBC RBC Hgb Hct MCHC RDW Lymph % (Auto) [place] % (Auto) Lymph # (Auto) [place] # (Auto) Eos # (Auto) Seg Neutrophils % Seg Neuts % (Manual) Lymphocytes % (Manual) Monocytes % (Manual) Nucleated RBC % Seg Neutrophils # Seg Neutrophils # Man Lymphocytes # (Manual) Monocytes # (Manual) Eosinophils # (Manual) PT INR APTT D-Dimer Heparin Anti-Xa Level ABG pH POC ABG pCO2 POC ABG pO2 ABG pO2 ABG HCO3 ABG Hemoglobin ABG Oxyhemoglobin ABG Sodium ABG Potassium ABG Chloride ABG Glucose Carboxyhemoglobin Sodium 133 L 134 L Potassium 5.3 H Chloride 93.5 L 94.8 L Carbon Dioxide BUN 101 H 99 H Creatinine 4.5 H 4.6 H Glucose 102 H POC Glucose 116 H Lactic Acid Calcium 7.8 L 7.6 L Phosphorus Magnesium Ferritin Direct Bilirubin AST ALT Alkaline Phosphatase Lactate Dehydrogenase Total Creatine Kinase C-Reactive Protein Total Protein Albumin Triglycerides Arterial Blood Glucose Arterial Blood Ionized Calcium Urine Creatinine Urine Chloride Vancomycin Trough Coronavirus (PCR) Crossmatch 07/11/20 07/12/20 07/12/20 17:23 00:04 03:20 WBC RBC Hgb Hct MCHC RDW Lymph % (Auto) [place] % (Auto) Lymph # (Auto) [place] # (Auto) Eos # (Auto) Seg Neutrophils % Seg Neuts % (Manual) Lymphocytes % (Manual) Monocytes % (Manual) Nucleated RBC % Seg Neutrophils # Seg Neutrophils # Man Lymphocytes # (Manual) Monocytes # (Manual) Eosinophils # (Manual) PT INR APTT D-Dimer Heparin Anti-Xa Level ABG pH POC ABG pCO2 49.1 H POC ABG pO2 130.3 H ABG pO2 ABG HCO3 ABG Hemoglobin 8.7 L ABG Oxyhemoglobin ABG Sodium 135.2 L ABG Potassium 4.7 H ABG Chloride ABG Glucose 128 H Carboxyhemoglobin Sodium Potassium Chloride Carbon Dioxide BUN Creatinine Glucose POC Glucose 142 H 113 H Lactic Acid Calcium Phosphorus Magnesium Ferritin Direct Bilirubin AST ALT Alkaline Phosphatase Lactate Dehydrogenase Total Creatine Kinase C-Reactive Protein Total Protein Albumin Triglycerides Arterial Blood Glucose 128 H Arterial Blood Ionized Calcium 4.4 L Urine Creatinine Urine Chloride Vancomycin Trough Coronavirus (PCR) Crossmatch 07/12/20 07/12/20 07/12/20 03:40 03:40 04:00 WBC 24.3 H RBC 2.83 L Hgb 8.0 L Hct 24.9 L MCHC RDW 17.7 H Lymph % (Auto) 5.6 L [place] % (Auto) 7.4 H Lymph # (Auto) [place] # (Auto) 1.8 H Eos # (Auto) 0.7 H Seg Neutrophils % 83.9 H Seg Neuts % (Manual) Lymphocytes % (Manual) Monocytes % (Manual) Nucleated RBC % Seg Neutrophils # 20.4 H Seg Neutrophils # Man Lymphocytes # (Manual) Monocytes # (Manual) Eosinophils # (Manual) PT INR APTT D-Dimer Heparin Anti-Xa Level ABG pH POC ABG pCO2 POC ABG pO2 ABG pO2 ABG HCO3 ABG Hemoglobin ABG Oxyhemoglobin ABG Sodium ABG Potassium ABG Chloride ABG Glucose Carboxyhemoglobin Sodium 134 L Potassium Chloride 95.5 L Carbon Dioxide BUN 79 H Creatinine 3.7 H Glucose 127 H POC Glucose Lactic Acid Calcium 7.8 L Phosphorus Magnesium Ferritin Direct Bilirubin AST ALT Alkaline Phosphatase Lactate Dehydrogenase Total Creatine Kinase C-Reactive Protein Total Protein Albumin Triglycerides 246 H Arterial Blood Glucose Arterial Blood Ionized Calcium Urine Creatinine Urine Chloride Vancomycin Trough Coronavirus (PCR) Crossmatch 07/12/20 07/12/20 07/12/20 05:48 11:50 17:29 WBC RBC Hgb Hct MCHC RDW Lymph % (Auto) [place] % (Auto) Lymph # (Auto) [place] # (Auto) Eos # (Auto) Seg Neutrophils % Seg Neuts % (Manual) Lymphocytes % (Manual) Monocytes % (Manual) Nucleated RBC % Seg Neutrophils # Seg Neutrophils # Man Lymphocytes # (Manual) Monocytes # (Manual) Eosinophils # (Manual) PT INR APTT D-Dimer Heparin Anti-Xa Level ABG pH POC ABG pCO2 POC ABG pO2 ABG pO2 ABG HCO3 ABG Hemoglobin ABG Oxyhemoglobin ABG Sodium ABG Potassium ABG Chloride ABG Glucose Carboxyhemoglobin Sodium Potassium Chloride Carbon Dioxide BUN Creatinine Glucose POC Glucose 136 H 113 H 110 H Lactic Acid Calcium Phosphorus Magnesium Ferritin Direct Bilirubin AST ALT Alkaline Phosphatase Lactate Dehydrogenase Total Creatine Kinase C-Reactive Protein Total Protein Albumin Triglycerides Arterial Blood Glucose Arterial Blood Ionized Calcium Urine Creatinine Urine Chloride Vancomycin Trough Coronavirus (PCR) Crossmatch 07/12/20 07/13/20 07/13/20 23:43 03:11 06:59 WBC RBC Hgb Hct MCHC RDW Lymph % (Auto) [place] % (Auto) Lymph # (Auto) [place] # (Auto) Eos # (Auto) Seg Neutrophils % Seg Neuts % (Manual) Lymphocytes % (Manual) Monocytes % (Manual) Nucleated RBC % Seg Neutrophils # Seg Neutrophils # Man Lymphocytes # (Manual) Monocytes # (Manual) Eosinophils # (Manual) PT INR APTT D-Dimer Heparin Anti-Xa Level ABG pH POC ABG pCO2 49.0 H POC ABG pO2 69.6 L ABG pO2 ABG HCO3 ABG Hemoglobin 8.5 L ABG Oxyhemoglobin 90.5 L ABG Sodium 133.6 L ABG Potassium 5.1 H ABG Chloride ABG Glucose 104 H Carboxyhemoglobin Sodium 133 L Potassium 5.7 H Chloride 96.3 L Carbon Dioxide 20 L D BUN 102 H Creatinine 4.4 H Glucose 101 H POC Glucose 120 H Lactic Acid Calcium 7.9 L Phosphorus Magnesium Ferritin Direct Bilirubin AST 61 H ALT 85 H Alkaline Phosphatase 144 H Lactate Dehydrogenase Total Creatine Kinase C-Reactive Protein Total Protein 5.4 L Albumin 2.0 L Triglycerides Arterial Blood Glucose 104 H Arterial Blood Ionized Calcium 4.3 L Urine Creatinine Urine Chloride Vancomycin Trough Coronavirus (PCR) Crossmatch 07/13/20 07/13/20 07/13/20 08:48 12:14 15:12 WBC 27.5 H RBC 3.03 L Hgb 8.7 L Hct 27.0 L MCHC RDW 18.0 H Lymph % (Auto) [place] % (Auto) Lymph # (Auto) [place] # (Auto) Eos # (Auto) Seg Neutrophils % Seg Neuts % (Manual) Lymphocytes % (Manual) Monocytes % (Manual) Nucleated RBC % Seg Neutrophils # Seg Neutrophils # Man Lymphocytes # (Manual) Monocytes # (Manual) Eosinophils # (Manual) PT INR APTT D-Dimer Heparin Anti-Xa Level ABG pH POC ABG pCO2 POC ABG pO2 ABG pO2 ABG HCO3 ABG Hemoglobin ABG Oxyhemoglobin ABG Sodium ABG Potassium ABG Chloride ABG Glucose Carboxyhemoglobin Sodium Potassium 5.5 H Chloride Carbon Dioxide BUN 88 H Creatinine 3.8 H Glucose 133 H POC Glucose 134 H Lactic Acid Calcium 7.5 L Phosphorus Magnesium Ferritin Direct Bilirubin AST ALT Alkaline Phosphatase Lactate Dehydrogenase Total Creatine Kinase C-Reactive Protein Total Protein Albumin Triglycerides Arterial Blood Glucose Arterial Blood Ionized Calcium Urine Creatinine Urine Chloride Vancomycin Trough Coronavirus (PCR) Crossmatch 07/13/20 07/13/20 07/13/20 16:46 16:47 18:46 WBC RBC Hgb 7.4 L Hct 22.1 L MCHC RDW Lymph % (Auto) [place] % (Auto) Lymph # (Auto) [place] # (Auto) Eos # (Auto) Seg Neutrophils % Seg Neuts % (Manual) Lymphocytes % (Manual) Monocytes % (Manual) Nucleated RBC % Seg Neutrophils # Seg Neutrophils # Man Lymphocytes # (Manual) Monocytes # (Manual) Eosinophils # (Manual) PT INR APTT D-Dimer Heparin Anti-Xa Level ABG pH POC ABG pCO2 POC ABG pO2 ABG pO2 ABG HCO3 ABG Hemoglobin ABG Oxyhemoglobin ABG Sodium ABG Potassium ABG Chloride ABG Glucose Carboxyhemoglobin Sodium Potassium Chloride Carbon Dioxide BUN Creatinine Glucose POC Glucose 118 H Lactic Acid Calcium Phosphorus Magnesium Ferritin Direct Bilirubin AST ALT Alkaline Phosphatase Lactate Dehydrogenase Total Creatine Kinase C-Reactive Protein Total Protein Albumin Triglycerides Arterial Blood Glucose Arterial Blood Ionized Calcium Urine Creatinine Urine Chloride Vancomycin Trough Coronavirus (PCR) Crossmatch See Detail 07/13/20 07/14/20 07/14/20 23:34 04:25 12:21 WBC RBC Hgb Hct MCHC RDW Lymph % (Auto) [place] % (Auto) Lymph # (Auto) [place] # (Auto) Eos # (Auto) Seg Neutrophils % Seg Neuts % (Manual) Lymphocytes % (Manual) Monocytes % (Manual) Nucleated RBC % Seg Neutrophils # Seg Neutrophils # Man Lymphocytes # (Manual) Monocytes # (Manual) Eosinophils # (Manual) PT INR APTT D-Dimer Heparin Anti-Xa Level ABG pH POC ABG pCO2 POC ABG pO2 ABG pO2 ABG HCO3 ABG Hemoglobin 8.9 L ABG Oxyhemoglobin ABG Sodium 133.1 L ABG Potassium 4.7 H ABG Chloride ABG Glucose 113 H Carboxyhemoglobin Sodium Potassium Chloride Carbon Dioxide BUN Creatinine Glucose POC Glucose 109 H 109 H Lactic Acid Calcium Phosphorus Magnesium Ferritin Direct Bilirubin AST ALT Alkaline Phosphatase Lactate Dehydrogenase Total Creatine Kinase C-Reactive Protein Total Protein Albumin Triglycerides Arterial Blood Glucose 113 H Arterial Blood Ionized Calcium 4.4 L Urine Creatinine Urine Chloride Vancomycin Trough Coronavirus (PCR) Crossmatch 07/14/20 07/14/20 07/14/20 16:44 16:44 20:20 WBC 30.1 H RBC 2.60 L Hgb 7.4 L 5.6 L* Hct 23.0 L 18.1 L* MCHC RDW 18.0 H Lymph % (Auto) [place] % (Auto) Lymph # (Auto) [place] # (Auto) Eos # (Auto) Seg Neutrophils % Seg Neuts % (Manual) 78.0 H Lymphocytes % (Manual) 5.0 L Monocytes % (Manual) Nucleated RBC % Seg Neutrophils # Seg Neutrophils # Man 23.5 H Lymphocytes # (Manual) Monocytes # (Manual) 0.9 H Eosinophils # (Manual) PT 15.6 H INR 1.26 H APTT D-Dimer Heparin Anti-Xa Level ABG pH POC ABG pCO2 POC ABG pO2 ABG pO2 ABG HCO3 ABG Hemoglobin ABG Oxyhemoglobin ABG Sodium ABG Potassium ABG Chloride ABG Glucose Carboxyhemoglobin Sodium Potassium Chloride Carbon Dioxide BUN Creatinine Glucose POC Glucose Lactic Acid Calcium Phosphorus Magnesium Ferritin Direct Bilirubin AST ALT Alkaline Phosphatase Lactate Dehydrogenase Total Creatine Kinase C-Reactive Protein Total Protein Albumin Triglycerides Arterial Blood Glucose Arterial Blood Ionized Calcium Urine Creatinine Urine Chloride Vancomycin Trough Coronavirus (PCR) Crossmatch 07/14/20 07/14/20 07/15/20 21:19 23:45 04:13 WBC RBC Hgb Hct MCHC RDW Lymph % (Auto) [place] % (Auto) Lymph # (Auto) [place] # (Auto) Eos # (Auto) Seg Neutrophils % Seg Neuts % (Manual) Lymphocytes % (Manual) Monocytes % (Manual) Nucleated RBC % Seg Neutrophils # Seg Neutrophils # Man Lymphocytes # (Manual) Monocytes # (Manual) Eosinophils # (Manual) PT INR APTT D-Dimer Heparin Anti-Xa Level ABG pH POC ABG pCO2 POC ABG pO2 ABG pO2 ABG HCO3 ABG Hemoglobin 5.8 L 6.0 L ABG Oxyhemoglobin 93.8 L ABG Sodium 132.2 L 130.3 L ABG Potassium 5.5 H 5.8 H ABG Chloride ABG Glucose 118 H 122 H Carboxyhemoglobin Sodium Potassium Chloride Carbon Dioxide BUN Creatinine Glucose POC Glucose 126 H Lactic Acid Calcium Phosphorus Magnesium Ferritin Direct Bilirubin AST ALT Alkaline Phosphatase Lactate Dehydrogenase Total Creatine Kinase C-Reactive Protein Total Protein Albumin Triglycerides Arterial Blood Glucose 118 H 122 H Arterial Blood Ionized Calcium 4.3 L 4.2 L Urine Creatinine Urine Chloride Vancomycin Trough Coronavirus (PCR) Crossmatch 07/15/20 07/15/20 07/15/20 08:21 08:21 08:38 WBC 45.5 H* RBC 2.42 L Hgb 7.1 L Hct 21.5 L MCHC RDW 16.5 H Lymph % (Auto) [place] % (Auto) Lymph # (Auto) [place] # (Auto) Eos # (Auto) Seg Neutrophils % Seg Neuts % (Manual) 89.0 H Lymphocytes % (Manual) 7.0 L Monocytes % (Manual) Nucleated RBC % Seg Neutrophils # Seg Neutrophils # Man 40.5 H Lymphocytes # (Manual) Monocytes # (Manual) 1.8 H Eosinophils # (Manual) PT 17.6 H INR 1.46 H APTT D-Dimer Heparin Anti-Xa Level ABG pH POC ABG pCO2 POC ABG pO2 ABG pO2 ABG HCO3 ABG Hemoglobin ABG Oxyhemoglobin ABG Sodium ABG Potassium ABG Chloride ABG Glucose Carboxyhemoglobin Sodium 131 L Potassium 6.0 H Chloride 94.6 L Carbon Dioxide 20 L BUN 116 H Creatinine 4.6 H Glucose 123 H POC Glucose Lactic Acid Calcium 7.6 L Phosphorus Magnesium Ferritin Direct Bilirubin AST ALT Alkaline Phosphatase Lactate Dehydrogenase Total Creatine Kinase C-Reactive Protein Total Protein Albumin Triglycerides Arterial Blood Glucose Arterial Blood Ionized Calcium Urine Creatinine Urine Chloride Vancomycin Trough Coronavirus (PCR) Crossmatch 07/15/20 07/15/20 07/15/20 11:29 17:23 18:52 WBC RBC Hgb Hct MCHC RDW Lymph % (Auto) [place] % (Auto) Lymph # (Auto) [place] # (Auto) Eos # (Auto) Seg Neutrophils % Seg Neuts % (Manual) Lymphocytes % (Manual) Monocytes % (Manual) Nucleated RBC % Seg Neutrophils # Seg Neutrophils # Man Lymphocytes # (Manual) Monocytes # (Manual) Eosinophils # (Manual) PT INR APTT D-Dimer Heparin Anti-Xa Level ABG pH POC ABG pCO2 POC ABG pO2 ABG pO2 ABG HCO3 ABG Hemoglobin ABG Oxyhemoglobin ABG Sodium ABG Potassium ABG Chloride ABG Glucose Carboxyhemoglobin Sodium Potassium Chloride 97.9 L Carbon Dioxide BUN 78 H Creatinine 3.1 H Glucose 114 H POC Glucose 181 H 120 H Lactic Acid Calcium 7.3 L Phosphorus Magnesium Ferritin Direct Bilirubin AST ALT Alkaline Phosphatase Lactate Dehydrogenase Total Creatine Kinase C-Reactive Protein Total Protein Albumin Triglycerides Arterial Blood Glucose Arterial Blood Ionized Calcium Urine Creatinine Urine Chloride Vancomycin Trough Coronavirus (PCR) Crossmatch 07/15/20 07/16/20 07/16/20 18:52 01:10 03:38 WBC RBC Hgb 9.9 L 8.5 L Hct 29.8 L D 24.7 L MCHC RDW Lymph % (Auto) [place] % (Auto) Lymph # (Auto) [place] # (Auto) Eos # (Auto) Seg Neutrophils % Seg Neuts % (Manual) Lymphocytes % (Manual) Monocytes % (Manual) Nucleated RBC % Seg Neutrophils # Seg Neutrophils # Man Lymphocytes # (Manual) Monocytes # (Manual) Eosinophils # (Manual) PT INR APTT D-Dimer Heparin Anti-Xa Level ABG pH 7.314 L POC ABG pCO2 48.5 H POC ABG pO2 58.9 L ABG pO2 ABG HCO3 ABG Hemoglobin 8.7 L ABG Oxyhemoglobin 86.7 L ABG Sodium 132.7 L ABG Potassium 5.2 H ABG Chloride ABG Glucose 99 H Carboxyhemoglobin Sodium Potassium Chloride Carbon Dioxide BUN Creatinine Glucose POC Glucose Lactic Acid Calcium Phosphorus Magnesium Ferritin Direct Bilirubin AST ALT Alkaline Phosphatase Lactate Dehydrogenase Total Creatine Kinase C-Reactive Protein Total Protein Albumin Triglycerides Arterial Blood Glucose 99 H Arterial Blood Ionized Calcium 3.9 L Urine Creatinine Urine Chloride Vancomycin Trough Coronavirus (PCR) Crossmatch 07/16/20 07/16/20 07/16/20 04:28 04:28 07:29 WBC 48.9 H* RBC 2.86 L Hgb 8.6 L 7.9 L Hct 25.4 L 24.4 L MCHC RDW 15.6 H Lymph % (Auto) [place] % (Auto) Lymph # (Auto) [place] # (Auto) Eos # (Auto) Seg Neutrophils % Seg Neuts % (Manual) Lymphocytes % (Manual) Monocytes % (Manual) Nucleated RBC % Seg Neutrophils # Seg Neutrophils # Man Lymphocytes # (Manual) Monocytes # (Manual) Eosinophils # (Manual) PT INR APTT D-Dimer Heparin Anti-Xa Level ABG pH POC ABG pCO2 POC ABG pO2 ABG pO2 ABG HCO3 ABG Hemoglobin ABG Oxyhemoglobin ABG Sodium ABG Potassium ABG Chloride ABG Glucose Carboxyhemoglobin Sodium 136 L Potassium 5.4 H Chloride 95.0 L Carbon Dioxide BUN 85 H Creatinine 3.4 H Glucose 66 L POC Glucose Lactic Acid Calcium 6.8 L Phosphorus Magnesium Ferritin Direct Bilirubin AST ALT Alkaline Phosphatase Lactate Dehydrogenase Total Creatine Kinase C-Reactive Protein Total Protein Albumin Triglycerides Arterial Blood Glucose Arterial Blood Ionized Calcium Urine Creatinine Urine Chloride Vancomycin Trough Coronavirus (PCR) Crossmatch 07/16/20 07/16/20 07/16/20 11:52 18:06 18:08 WBC RBC Hgb 7.4 L Hct 22.5 L MCHC RDW Lymph % (Auto) [place] % (Auto) Lymph # (Auto) [place] # (Auto) Eos # (Auto) Seg Neutrophils % Seg Neuts % (Manual) Lymphocytes % (Manual) Monocytes % (Manual) Nucleated RBC % Seg Neutrophils # Seg Neutrophils # Man Lymphocytes # (Manual) Monocytes # (Manual) Eosinophils # (Manual) PT INR APTT D-Dimer Heparin Anti-Xa Level ABG pH POC ABG pCO2 POC ABG pO2 ABG pO2 ABG HCO3 ABG Hemoglobin ABG Oxyhemoglobin ABG Sodium ABG Potassium ABG Chloride ABG Glucose Carboxyhemoglobin Sodium Potassium Chloride Carbon Dioxide BUN Creatinine Glucose POC Glucose 124 H 108 H Lactic Acid Calcium Phosphorus Magnesium Ferritin Direct Bilirubin AST ALT Alkaline Phosphatase Lactate Dehydrogenase Total Creatine Kinase C-Reactive Protein Total Protein Albumin Triglycerides Arterial Blood Glucose Arterial Blood Ionized Calcium Urine Creatinine Urine Chloride Vancomycin Trough Coronavirus (PCR) Crossmatch 07/17/20 07/17/20 07/17/20 03:27 15:25 15:25 WBC 46.2 H* RBC 2.05 L Hgb 6.1 L Hct 18.4 L* MCHC RDW 15.6 H Lymph % (Auto) [place] % (Auto) Lymph # (Auto) [place] # (Auto) Eos # (Auto) Seg Neutrophils % Seg Neuts % (Manual) 87.0 H Lymphocytes % (Manual) 3.0 L Monocytes % (Manual) Nucleated RBC % Seg Neutrophils # Seg Neutrophils # Man 40.2 H Lymphocytes # (Manual) Monocytes # (Manual) 3.2 H Eosinophils # (Manual) PT 18.2 H INR 1.52 H APTT D-Dimer Heparin Anti-Xa Level ABG pH 7.313 L POC ABG pCO2 50.9 H POC ABG pO2 ABG pO2 ABG HCO3 ABG Hemoglobin 7.5 L ABG Oxyhemoglobin ABG Sodium 131.8 L ABG Potassium 4.6 H ABG Chloride ABG Glucose 105 H Carboxyhemoglobin Sodium Potassium Chloride Carbon Dioxide BUN Creatinine Glucose POC Glucose Lactic Acid Calcium Phosphorus Magnesium Ferritin Direct Bilirubin AST ALT Alkaline Phosphatase Lactate Dehydrogenase Total Creatine Kinase C-Reactive Protein Total Protein Albumin Triglycerides Arterial Blood Glucose 105 H Arterial Blood Ionized Calcium 3.9 L Urine Creatinine Urine Chloride Vancomycin Trough Coronavirus (PCR) Crossmatch 07/17/20 07/18/20 07/18/20 Unknown 03:10 05:06 WBC 37.9 H RBC 2.91 L Hgb 8.5 L Hct 25.6 L D MCHC RDW Lymph % (Auto) [place] % (Auto) Lymph # (Auto) [place] # (Auto) Eos # (Auto) Seg Neutrophils % Seg Neuts % (Manual) Lymphocytes % (Manual) Monocytes % (Manual) Nucleated RBC % Seg Neutrophils # Seg Neutrophils # Man Lymphocytes # (Manual) Monocytes # (Manual) Eosinophils # (Manual) PT INR APTT D-Dimer Heparin Anti-Xa Level ABG pH POC ABG pCO2 POC ABG pO2 114.9 H ABG pO2 ABG HCO3 ABG Hemoglobin 8.6 L ABG Oxyhemoglobin ABG Sodium 130.6 L ABG Potassium 4.9 H ABG Chloride ABG Glucose Carboxyhemoglobin Sodium Potassium Chloride Carbon Dioxide BUN Creatinine Glucose POC Glucose Lactic Acid Calcium Phosphorus Magnesium Ferritin Direct Bilirubin AST ALT Alkaline Phosphatase Lactate Dehydrogenase Total Creatine Kinase C-Reactive Protein Total Protein Albumin Triglycerides Arterial Blood Glucose Arterial Blood Ionized Calcium 3.8 L Urine Creatinine Urine Chloride Vancomycin Trough Coronavirus (PCR) Crossmatch See Detail 07/18/20 05:06 WBC RBC Hgb Hct MCHC RDW Lymph % (Auto) [place] % (Auto) Lymph # (Auto) [place] # (Auto) Eos # (Auto) Seg Neutrophils % Seg Neuts % (Manual) Lymphocytes % (Manual) Monocytes % (Manual) Nucleated RBC % Seg Neutrophils # Seg Neutrophils # Man Lymphocytes # (Manual) Monocytes # (Manual) Eosinophils # (Manual) PT INR APTT D-Dimer Heparin Anti-Xa Level ABG pH POC ABG pCO2 POC ABG pO2 ABG pO2 ABG HCO3 ABG Hemoglobin ABG Oxyhemoglobin ABG Sodium ABG Potassium ABG Chloride ABG Glucose Carboxyhemoglobin Sodium Potassium 5.4 H Chloride Carbon Dioxide BUN 79 H Creatinine 3.2 H Glucose POC Glucose Lactic Acid Calcium 6.9 L Phosphorus Magnesium Ferritin Direct Bilirubin AST ALT 58 H Alkaline Phosphatase Lactate Dehydrogenase Total Creatine Kinase C-Reactive Protein Total Protein 4.3 L D Albumin 1.7 L Triglycerides 306 H Arterial Blood Glucose Arterial Blood Ionized Calcium Urine Creatinine Urine Chloride Vancomycin Trough Coronavirus (PCR) Crossmatch Chest x-ray: image reviewed Allied health notes reviewed: RT
[2020-07-18] MEDS: SODIUM BICARBONATE 650 MG TAB PO SCH ×3 (08:38→19:21)
[2020-07-18] MEDS: CEFEPIME/NS 2 GM/100 ML 2 GM/100 ML BAG IV SCH (08:38)
[2020-07-18] MEDS: PANTOPRAZOLE 40 MG INJ IV SCH ×2 (10:24→21:47)
--- NOTE | 2020-07-18 10:36 | Cat Scan Report ---
CTA ABDOMEN AND PELVIS WITHOUT AND WITH IV CONTRAST INDICATION / CLINICAL INFORMATION: GI Bleed. TECHNIQUE: Axial CT images were obtained through the abdomen and pelvis before and after after injection of IV c ontrast. 3 plane MIP / 3D reconstructions were produced. All CT scans at this location are performed using CT dose reduction for ALARA by means of automated exposure control. COMPARISON: None available. FINDINGS: Vascular findings: Abdominal aorta is normal in caliber. The celiac trunk, SMA, bilateral renal arter ies, and DARRIN are patent. Bilateral common iliac, internal iliac, and external iliac arteries and visu alized femoral arteries are widely patent. Left femoral catheter is located within the left common il iac vein. Nonvascular Findings: Enteric catheter terminates in the body the stomach. There is redemonstration of pneumomediastinum an d subcutaneous emphysema, nonspecific. Bilateral airspace consolidation with air bronchograms and pat benson groundglass airspace disease demonstrated throughout the lung bases. No pleural effusion. No disc rete pneumothorax is visualized. Gallbladder is distended without evidence of cholecystitis. No biliary dilatation. Liver, pancreas, s pleen, adrenals, and kidneys are unremarkable. Bladder appears unremarkable. Rectal tube is present. There are scattered colonic diverticula. No CT evidence of diverticulitis. Th ere is mild mural thickening and inflammatory stranding of the colon at the hepatic flexure, may refl ect mild infectious or inflammatory colitis. No evidence of active intraluminal GI bleed. No pneumato sis or free air. No free fluid or adenopathy. There is diffuse anasarca about the subcutaneous tissues of the pelvis a nd visualized upper thighs. No organized collection. Skeletal Structures: No significant abnormality. IMPRESSION: 1. Mild mural thickening and inflammatory stranding about the ascending colon at the hepatic flexure, may reflect mild infectious or inflammatory colitis. No active intraluminal GI bleed is detected. 2. Partially imaged bibasilar pneumonia with redemonstration of pneumomediastinum and subcutaneous em physema in the chest. 3. Other chronic, incidental findings as above. Signer Name: Merrick Wills MD Signed: 07/18/2020 10:31 AM Workstation Name: [id number]
--- NOTE | 2020-07-18 11:19 | Progress Note ---
Assessment and Plan pt remains intubated, sedated. intermittently requiring vasopressor support. currently off telemetry for CT scan, although it is reported per primary team that pt converted to SR overnight. Cont present cardiac management. Per ID team, patient with fungal blood cultures growing GPC in chains and clusters. Medication regimen adjusted per ID. Cont supportive management. Overall poor prognosis. The patient has been seen in conjunction with Dr. Adarsh Santos who agrees with the assessment and plan of care. - Patient Problems (1) Acute respiratory failure with hypoxia Current Visit: Yes Status: Acute (2) Pneumonia due to COVID-19 virus Current Visit: Yes Status: Acute (3) Sepsis Current Visit: Yes Status: Acute Qualifiers: Severe sepsis acute organ dysfunction type: acute respiratory failure Severe sepsis shock status: with septic shock (4) Paroxysmal atrial fibrillation with rapid ventricular response Current Visit: Yes Status: Acute (5) Acute renal failure Current Visit: Yes Status: Acute (6) Elevated LFTs Current Visit: Yes Status: Acute (7) Anemia Current Visit: Yes Status: Acute Subjective Date of service: 07/18/20 Principal diagnosis: ARF; Septic Shock; COVID-19 PNA; Atrial fibrillation; Obesity Interval history: pt remains intubated, sedated. intermittently requiring vasopressor support. currently off telemetry for CT scan, although it is reported per primary team that pt converted to SR overnight. Objective Last Vital Signs Temp 97.1 F L 07/18/20 03:55 Pulse 65 07/18/20 08:45 Resp 25 H 07/18/20 08:45 BP 125/53 07/18/20 08:45 Pulse Ox 100 07/18/20 08:45 - Physical Examination General: Other (intubated, sedated ) Neck: Positive: neck supple Neuro: Positive: Other (intubated, lethargic) Abdomen: Positive: Soft Skin: Negative: Rash, Wound Extremities: Present: upper extr. pulses, lower extr. pulses, +1 Edema - Labs and Meds Cardiac Enzymes 07/18/20 Range/Units 05:06 AST 40 (5-40) units/L Coagulation 07/17/20 Range/Units 15:25 PT 18.2 H (12.2-14.9) Sec. INR 1.52 H (0.87-1.13) Lipids 07/18/20 Range/Units 05:06 Triglycerides 306 H (2-149) mg/dL CBC 07/17/20 07/18/20 Range/Units 15:25 05:06 WBC 46.2 H* 37.9 H (4.5-11.0) K/mm3 RBC 2.05 L 2.91 L (3.65-5.03) M/mm3 Hgb 6.1 L 8.5 L (11.8-15.2) gm/dl Hct 18.4 L* 25.6 L D (35.5-45.6) % Plt Count 250 219 (140-440) K/mm3 Comprehensive Metabolic Panel 07/18/20 Range/Units 05:06 Sodium 137 (137-145) mmol/L Potassium 5.4 H (3.6-5.0) mmol/L Chloride 98.3 (98-107) mmol/L Carbon Dioxide 22 (22-30) mmol/L BUN 79 H (9-20) mg/dL Creatinine 3.2 H (0.8-1.3) mg/dL Glucose 88 (75-100) mg/dL Calcium 6.9 L (8.4-10.2) mg/dL AST 40 (5-40) units/L ALT 58 H (7-56) units/L Alkaline Phosphatase 102 (35-129) units/L Total Protein 4.3 L D (6.3-8.2) g/dL Albumin 1.7 L (3.9-5) g/dL - Imaging and Cardiology EKG: report reviewed, image reviewed Echo: report reviewed (TDS, EF 55-60%. ) - EKG Sinus rhythms and dysrhythmias: sinus tachycardia - Allied health notes Allied health notes reviewed: nursing
[2020-07-18] MEDS: QUEtiapine 200 MG TAB PO SCH ×2 (11:57→21:51)
[2020-07-18] MEDS: POLYETHYLENE GLYCOL 3350 17 GM POWDER PO SCH (11:57)
[2020-07-18] MEDS: CHOLECALCIFEROL (VIT D3) 1000 UNIT (25 mcg) TAB PO SCH (11:57)
[2020-07-18] MEDS: DOCUSATE SODIUM 100 MG/10 ML ORAL LIQD FEEDTUBE SCH ×2 (11:57→21:51)
[2020-07-18] MEDS: ASCORBIC ACID 250 MG TAB PO SCH ×2 (11:57→21:51)
[2020-07-18] MEDS: ZINC SULFATE 220 MG CAP PO SCH ×2 (11:58→21:51)
--- NOTE | 2020-07-18 12:15 | Progress Note ---
Assessment and Plan Cultures: SARS CoV2 PCR: Positive as outpatient 06/17/2020 blood culture: No growth 06/17/2020 sputum culture: No growth 07/15/2020 blood culture: No growth 07/15/2020 fungal blood culture: Growing GPC per discussion with microbiology lab. Preliminary data suggests likely Enterococcus 07/15/2020 tracheal aspirate culture: Usual respiratory otf A/P: 59-year-old male with obesity, obesity hypoventilation syndrome: #Severe sepsis with septic shock, ?also component of hemorrhagic shock #GPC bacteremia: 07/15/2020 fungal blood culture: Growing GPC per discussion with microbiology lab. Preliminary data suggests likely Enterococcus. ?gut translocation. #Anemia, GI bleed: GI on board. #Critical COVID-19 pneumonia: s/p abx, steroids and remdesivir. #Acute hypoxic respiratory failure: on the vent. Also with pneumomediastinum, subcutaneous emphysema. #GIRISH: remains on HD per nephrology. Renally dose abx. Recs: -Switched abx to IV Zosyn alone, will cover Enterococcus -repeat blood culture ordered -overall, very poor prognosis Tj Fajardo MD, FACP [facility], [place], [facility] ([facility] O: [phone] F: [phone] Subjective Date of service: 07/18/20 Principal diagnosis: ARF; Septic Shock; COVID-19 PNA; Atrial fibrillation; Obesity Interval history: ID reconsulted due to positive blood cultures. Patient has had some low-grade intermittent fevers recently. Remains in ICU, intubated, on the vent with high requirements. Pressors weaned off. Objective - Exam Narrative Exam: Physical Exam (reviewed in chart to minimize risk of transmission) Constitutional: deferred Head, Ears, Nose: deferred Eyes: deferred Neck: deferred Oral: deferred Cardiovascular: deferred Respiratory: deferred GI: deferred Musculoskeletal: deferred Skin: deferred Hem/Lymphatic: deferred Psych: deferred Neurological: deferred - Constitutional Vitals: Vital Signs Temp Pulse Resp BP Pulse Ox 97.1 F L 63 20 115/58 97 07/18/20 03:55 07/18/20 12:08 07/18/20 12:01 07/18/20 12:08 07/18/20 12:08 Temperature -Last 24 Hours Temperature 97.1 F Temperature 97.0 F Temperature 98.1 F Temperature 98.1 F Temperature 97.6 F Temperature 97.3 F Temperature 98.1 F Temperature 98.1 F - Labs CBC & Chem 7: 07/18/20 05:06 07/18/20 05:06 Labs: Abnormal lab results 07/13/20 07/17/20 07/17/20 Range/Units 16:46 15:25 15:25 WBC 46.2 H* (4.5-11.0) K/mm3 RBC 2.05 L (3.65-5.03) M/mm3 Hgb 6.1 L (11.8-15.2) gm/dl Hct 18.4 L* (35.5-45.6) % RDW 15.6 H (13.2-15.2) % Seg Neuts % (Manual) 87.0 H (40.0-70.0) % Lymphocytes % (Manual) 3.0 L (13.4-35.0) % Seg Neutrophils # Man 40.2 H (1.8-7.7) K/mm3 Monocytes # (Manual) 3.2 H (0.0-0.8) K/mm3 PT 18.2 H (12.2-14.9) Sec. INR 1.52 H (0.87-1.13) POC ABG pO2 (83-108) mmHg ABG Hemoglobin (12.0-17.5) ABG Sodium (136.0-145.0) mmol/L ABG Potassium (3.40-4.50) mmol/L Potassium (3.6-5.0) mmol/L BUN (9-20) mg/dL Creatinine (0.8-1.3) mg/dL Calcium (8.4-10.2) mg/dL ALT (7-56) units/L Total Protein (6.3-8.2) g/dL Albumin (3.9-5) g/dL Triglycerides (2-149) mg/dL Arterial Blood Ionized Calcium (4.6-5.3) mg/dL Crossmatch See Detail 07/17/20 07/18/20 07/18/20 Range/Units Unknown 03:10 05:06 WBC 37.9 H (4.5-11.0) K/mm3 RBC 2.91 L (3.65-5.03) M/mm3 Hgb 8.5 L (11.8-15.2) gm/dl Hct 25.6 L D (35.5-45.6) % RDW (13.2-15.2) % Seg Neuts % (Manual) (40.0-70.0) % Lymphocytes % (Manual) (13.4-35.0) % Seg Neutrophils # Man (1.8-7.7) K/mm3 Monocytes # (Manual) (0.0-0.8) K/mm3 PT (12.2-14.9) Sec. INR (0.87-1.13) POC ABG pO2 114.9 H (83-108) mmHg ABG Hemoglobin 8.6 L (12.0-17.5) ABG Sodium 130.6 L (136.0-145.0) mmol/L ABG Potassium 4.9 H (3.40-4.50) mmol/L Potassium (3.6-5.0) mmol/L BUN (9-20) mg/dL Creatinine (0.8-1.3) mg/dL Calcium (8.4-10.2) mg/dL ALT (7-56) units/L Total Protein (6.3-8.2) g/dL Albumin (3.9-5) g/dL Triglycerides (2-149) mg/dL Arterial Blood Ionized Calcium 3.8 L (4.6-5.3) mg/dL Crossmatch See Detail 07/18/20 Range/Units 05:06 WBC (4.5-11.0) K/mm3 RBC (3.65-5.03) M/mm3 Hgb (11.8-15.2) gm/dl Hct (35.5-45.6) % RDW (13.2-15.2) % Seg Neuts % (Manual) (40.0-70.0) % Lymphocytes % (Manual) (13.4-35.0) % Seg Neutrophils # Man (1.8-7.7) K/mm3 Monocytes # (Manual) (0.0-0.8) K/mm3 PT (12.2-14.9) Sec. INR (0.87-1.13) POC ABG pO2 (83-108) mmHg ABG Hemoglobin (12.0-17.5) ABG Sodium (136.0-145.0) mmol/L ABG Potassium (3.40-4.50) mmol/L Potassium 5.4 H (3.6-5.0) mmol/L BUN 79 H (9-20) mg/dL Creatinine 3.2 H (0.8-1.3) mg/dL Calcium 6.9 L (8.4-10.2) mg/dL ALT 58 H (7-56) units/L Total Protein 4.3 L D (6.3-8.2) g/dL Albumin 1.7 L (3.9-5) g/dL Triglycerides 306 H (2-149) mg/dL Arterial Blood Ionized Calcium (4.6-5.3) mg/dL Crossmatch
[2020-07-18] MEDS: PIPERACIL/TAZOBACTA 4.5/NS 100 4.5 GM/100 ML VIAL IV SCH (13:24)
--- NOTE | 2020-07-18 13:43 | Progress Note ---
Assessment and Plan - Patient Problems (1) Acute renal failure Current Visit: Yes Status: Acute Qualifiers: Acute renal failure type: with acute tubular necrosis Qualified Code(s): N17.0 - Acute kidney failure with tubular necrosis Plan to address problem: Likely prerenal in nature secondary to new onset of COVID-19 pneumonia with worsening sepsis and hypotension. Concern for acute tubular necrosis. Has now been on HD and this am is off pressor support. No signs of renal recovery. Will continue to monitor. Overall prognosis remains poor at this time. He is on a inpatient MWF HD schedule and we will assess daily needs for isolated UF treatment in order to optimize volume status. (2) Pneumonia due to COVID-19 virus Current Visit: Yes Status: Acute Plan to address problem: Management per infectious disease recommendations. (3) Acute respiratory failure with hypoxia Current Visit: Yes Status: Acute Plan to address problem: Patient currently intubated at this time. Vent management per pulmonology recommendations. (4) Anemia Current Visit: Yes Status: Acute Qualifiers: Other causes of anemia: acute posthemorrhagic Plan to address problem: Per GI notes, EGD did not show evidence of active bleeding. Follow up further GI recommendations. Transfuse to maintain Hgb >7.0. (5) Hyperkalemia Current Visit: Yes Status: Acute Plan to address problem: Manage with HD. Subjective Date of service: 07/18/20 Principal diagnosis: ARF; Septic Shock; COVID-19 PNA; Atrial fibrillation; Obesity Interval history: No acute changes. Off pressors this am. Plan for HD. Objective - Exam Narrative Exam: Not directly examined in order to preserve PPE. - Vital Signs Vital signs: Vital Signs - 12hr 07/18/20 07/18/20 07/18/20 01:45 02:00 02:15 Temperature Pulse Rate 110 H 91 H 86 Pulse Rate [ From Monitor] Pulse Rate [ None] Respiratory 25 H 19 12 Rate Blood Pressure 106/56 113/65 112/61 O2 Sat by Pulse 100 100 100 Oximetry 07/18/20 07/18/20 07/18/20 02:31 02:45 03:00 Temperature Pulse Rate 101 H 92 H 96 H Pulse Rate [ From Monitor] Pulse Rate [ None] Respiratory 13 13 26 H Rate Blood Pressure 129/64 106/57 101/54 O2 Sat by Pulse 100 100 100 Oximetry 03/12/3107/18/20 07/18/20 03:05 03:15 03:30 Temperature Pulse Rate 87 87 94 H Pulse Rate [ From Monitor] Pulse Rate [ None] Respiratory 26 H 26 H Rate Blood Pressure 100/59 100/59 97/55 O2 Sat by Pulse 100 100 100 Oximetry 07/18/20 07/18/20 07/18/20 03:45 03:55 04:00 Temperature 97.1 F L Pulse Rate 64 62 Pulse Rate [ 124 H From Monitor] Pulse Rate [ None] Respiratory 25 H 22 Rate Blood Pressure 97/45 O2 Sat by Pulse 100 100 Oximetry 07/18/20 07/18/20 07/18/20 04:01 04:15 04:30 Temperature Pulse Rate 62 62 64 Pulse Rate [ From Monitor] Pulse Rate [ None] Respiratory 25 H 10 L 25 H Rate Blood Pressure 116/50 116/50 110/44 O2 Sat by Pulse 100 100 100 Oximetry 07/18/20 07/18/20 07/18/20 04:45 05:01 05:15 Temperature Pulse Rate 64 62 65 Pulse Rate [ From Monitor] Pulse Rate [ None] Respiratory 25 H 23 16 Rate Blood Pressure 104/38 127/53 127/53 O2 Sat by Pulse 100 100 100 Oximetry 07/18/20 07/18/20 07/18/20 05:31 05:45 06:01 Temperature Pulse Rate 71 62 64 Pulse Rate [ From Monitor] Pulse Rate [ None] Respiratory 14 25 H 25 H Rate Blood Pressure 116/63 111/44 95/39 O2 Sat by Pulse 99 100 100 Oximetry 07/18/20 07/18/20 07/18/20 06:15 06:30 06:39 Temperature Pulse Rate 63 63 64 Pulse Rate [ From Monitor] Pulse Rate [ None] Respiratory 27 H 25 H 25 H Rate Blood Pressure 95/39 95/39 95/39 O2 Sat by Pulse 100 100 100 Oximetry 07/18/20 07/18/20 07/18/20 06:40 06:41 06:42 Temperature Pulse Rate 64 64 64 Pulse Rate [ From Monitor] Pulse Rate [ None] Respiratory 26 H 28 H 25 H Rate Blood Pressure 94/42 94/42 121/57 O2 Sat by Pulse 100 100 100 Oximetry 07/18/20 07/18/20 07/18/20 06:43 06:45 06:46 Temperature Pulse Rate 65 66 62 Pulse Rate [ From Monitor] Pulse Rate [ 64 None] Respiratory 24 26 H 29 H Rate Blood Pressure 121/57 121/57 125/58 O2 Sat by Pulse 100 100 99 Oximetry 07/18/20 07/18/20 07/18/20 06:47 06:49 06:51 Temperature Pulse Rate 64 65 65 Pulse Rate [ From Monitor] Pulse Rate [ None] Respiratory 16 27 H 30 H Rate Blood Pressure 125/58 125/58 125/58 O2 Sat by Pulse 100 100 100 Oximetry 07/18/20 07/18/20 07/18/20 07:00 07:15 07:30 Temperature Pulse Rate 62 63 62 Pulse Rate [ From Monitor] Pulse Rate [ None] Respiratory 25 H 25 H 25 H Rate Blood Pressure 118/53 98/41 94/41 O2 Sat by Pulse 100 100 100 Oximetry 07/18/20 07/18/20 07/18/20 07:45 08:00 08:01 Temperature Pulse Rate 62 63 61 Pulse Rate [ 60 From Monitor] Pulse Rate [ None] Respiratory 25 H 22 17 Rate Blood Pressure 96/41 92/45 134/61 O2 Sat by Pulse 100 100 99 Oximetry 07/18/20 07/18/20 07/18/20 08:15 08:30 08:45 Temperature Pulse Rate 66 60 65 Pulse Rate [ From Monitor] Pulse Rate [ None] Respiratory 15 8 L 25 H Rate Blood Pressure 130/66 125/53 125/53 O2 Sat by Pulse 100 100 100 Oximetry 07/18/20 07/18/20 07/18/20 10:01 10:15 10:30 Temperature Pulse Rate 64 65 65 Pulse Rate [ From Monitor] Pulse Rate [ None] Respiratory 19 25 H 17 Rate Blood Pressure 121/57 110/54 100/64 O2 Sat by Pulse 100 82 L Oximetry 07/18/20 07/18/20 07/18/20 10:45 11:00 11:15 Temperature Pulse Rate 65 66 63 Pulse Rate [ From Monitor] Pulse Rate [ None] Respiratory 17 28 H 25 H Rate Blood Pressure 109/62 107/49 97/44 O2 Sat by Pulse 97 100 100 Oximetry 07/18/20 07/18/20 07/18/20 11:30 11:45 12:00 Temperature Pulse Rate 63 62 62 Pulse Rate [ 62 From Monitor] Pulse Rate [ None] Respiratory 25 H 25 H 24 Rate Blood Pressure 91/43 97/45 O2 Sat by Pulse 100 100 98 Oximetry 07/18/20 07/18/20 12:01 12:08 Temperature Pulse Rate 63 63 Pulse Rate [ From Monitor] Pulse Rate [ None] Respiratory 20 Rate Blood Pressure 115/58 115/58 O2 Sat by Pulse 99 97 Oximetry - Lab 07/18/20 05:06 07/18/20 05:06 Most recent lab results ABG pH 7.35 (7.320-7.450) 07/18/20 03:10 ABG pCO2 56.4 mm Hg 07/05/20 04:30 ABG pO2 151.9 mm Hg (80.0-90.0) H 07/05/20 04:30 ABG HCO3 26.8 mmol/L (20.0-26.0) H 07/05/20 04:30 ABG O2 Saturation 98.7 % (95.0-99.0) 07/05/20 04:30 Calcium 6.9 mg/dL (8.4-10.2) L 07/18/20 05:06 Phosphorus 9.40 mg/dL (2.5-4.5) H 06/30/20 03:50 Magnesium 2.70 mg/dL (1.7-2.3) H 06/18/20 20:33 Urine Creatinine 192.4 mg/dL (0.1-20.0) H 06/18/20 15:00 Urine Sodium 28 mmol/L 06/18/20 15:00 Medications & Allergies - Medications Allergies/Adverse Reactions: Allergies No Known Allergies Allergy (Unverified 06/17/20 14:24) Home Medications: Home Medications Medication Instructions Recorded Confirmed Last Taken Type Losartan/Hydrochlorothiazide 1 each PO QDAY 06/19/20 06/19/20 Unknown History [Losartan-Hctz 100-25 mg Tab] amLODIPine [Norvasc] 5 mg PO DAILY 06/19/20 06/19/20 Unknown History Active Medications: Generic Name Dose Route Start Last Admin Trade Name Freq PRN Reason Stop Dose Admin Acetaminophen 650 mg 06/17/20 14:17 07/03/20 09:16 Acetaminophen 325 Mg Tab PO 650 mg Q4H PRN Administration Pain MILD(1-3)/Fever >100.5/ROBERTS Lipase/Protease/Amylase 1 each 06/19/20 12:15 Lipase 10,500/Protease 25,000/Amylase 43,750 (Units) Dr Cap FEEDTUBE PRN PRN For Clogged Feeding Tube Ascorbic Acid 250 mg 06/17/20 22:00 07/18/20 11:57 Ascorbic Acid 250 Mg Tab PO Not Given BID [facility] Cholecalciferol 1,000 unit 06/18/20 10:00 07/18/20 11:57 Cholecalciferol (Vit D3) 1000 Unit (25 Mcg) Tab PO Not Given DAILY [facility] Docusate Sodium 100 mg 06/23/20 15:00 07/18/20 11:57 Docusate Sodium 100 Mg/10 Ml Oral Liqd FEEDTUBE Not Given BID CONNOR Fentanyl 50 mcg 06/18/20 01:02 07/09/20 00:20 Fentanyl 100 Mcg/2 Ml Inj IV 50 mcg Q10MIN PRN Administration ANALGESIA Heparin Sodium (Porcine) 5,000 unit 06/22/20 12:53 06/30/20 13:36 Heparin 10,000 Unit/1 Ml Vial IV 5,000 unit PAM PRN Administration hemodialysis Hydrophilic Ointment 1 applic 06/17/20 22:52 07/12/20 20:22 Lip Therapy Vaseline TP 1 applic Q2HR PRN Administration Dry Lips Propofol 1,000 mg in 100 mls @ 3.402 mls/hr 06/18/20 01:00 07/18/20 12:26 Diprivan 10 Mg/Ml IV 10 mcg/kg/min TITR CONNOR 6.804 mls/hr Administration Protocol 5 MCG/KG/MIN Fentanyl Citrate 2,000 mcg in 100 mls @ 8 mls/hr 06/18/20 02:00 07/18/20 10:23 Fentanyl Drip Premix IV 3 mcg/kg/hr TITR CONNOR 24 mls/hr Administration Protocol 1 MCG/KG/HR Norepinephrine 4 mg in 250 mls @ 7.5 mls/hr 07/08/20 02:06 07/18/20 02:17 Levophed Drip 4 Mg/Ns 250 Ml IV 0 mcg/min TITR CONNOR 0 mls/hr Titration Protocol 2 MCG/MIN Vasopressin 20 unit/ Sodium 101 mls @ 9.09 mls/hr 07/11/20 11:00 07/18/20 13:34 Chloride IV 0.03 units/min TITR CONNOR 9.09 mls/hr Titration Protocol 0.03 UNITS/MIN Amiodarone HCl 900 mg/ 500 mls @ 33.333 mls/hr 07/14/20 12:30 07/17/20 18:21 Dextrose IV 0.5 mg/min DIRECT CONNOR 16.667 mls/hr Administration Protocol 1 MG/MIN Sodium Chloride 100 mls @ 999 mls/hr 07/15/20 14:18 Nacl 0.9% IV PAM PRN Hypotension Piperacillin Sod/Tazobactam Sod 4.5 gm in 100 mls @ 200 mls/hr 07/18/20 13:00 07/18/20 13:24 Zosyn/Ns 4.5gm/100ml IV 200 mls/hr Q12H [facility] Administration Protocol Insulin Human Regular 0 units 06/18/20 12:00 07/18/20 11:58 Insulin Regular, Human 100 Units/1 Ml SUB-Q Not Given Q6HR [facility] Protocol Multi-Ingred Cream/Lotion/Oil/Oint 1 applic 06/17/20 22:52 07/12/20 20:22 Mineral Oil/Petrolatum, White Ophth Oint 3.5 Gm OU 1 applic Q4HR PRN Administration Dry Eye(s) Ondansetron HCl 4 mg 06/17/20 14:17 Ondansetron 4 Mg/2 Ml Inj IV Q8H PRN Nausea And Vomiting Pantoprazole Sodium 40 mg 07/16/20 22:00 07/18/20 10:24 Pantoprazole 40 Mg Inj IV 40 mg BID [facility] Administration Polyethylene Glycol 17 gm 06/23/20 15:00 07/18/20 11:57 Polyethylene Glycol 3350 17 Gm Powder PO Not Given QDAY [facility] Quetiapine Fumarate 200 mg 06/28/20 13:00 07/18/20 11:57 Quetiapine 200 Mg Tab PO Not Given BID [facility] Simple Syrup 15 ml 06/19/20 12:15 Simple Syrup 15 Ml FEEDTUBE PRN PRN Hypoglycemia Simple Syrup 30 ml 06/19/20 12:15 Simple Syrup 15 Ml FEEDTUBE PRN PRN Hypoglycemia Sodium Bicarbonate 325 mg 06/19/20 12:15 07/11/20 20:00 Sodium Bicarbonate 325 Mg Tab FEEDTUBE 325 mg PRN PRN Administration For Clogged Feeding Tube Sodium Bicarbonate 650 mg 07/04/20 10:00 07/18/20 13:24 Sodium Bicarbonate 650 Mg Tab PO 650 mg TID [facility] Administration Sodium Chloride 10 ml 06/17/20 22:00 07/18/20 11:56 Sodium Chloride 0.9% 10 Ml Flush Syringe IV 10 ml BID [facility] Administration Sodium Chloride 10 ml 06/17/20 14:17 Sodium Chloride 0.9% 10 Ml Flush Syringe IV PRN PRN LINE FLUSH Sodium Polystyrene Sulfonate 15 gm 07/03/20 11:19 07/05/20 10:36 Sodium Polystyrene 15 Gm/60 Ml Oral Liqd PO 15 gm Q6HR PRN Administration Hyperkalemia Zinc Sulfate 220 mg 06/17/20 22:00 07/18/20 11:58 Zinc Sulfate 220 Mg Cap PO Not Given BID [facility]
--- NOTE | 2020-07-18 14:19 | Progress Note ---
<CLARITADARYL MarisaRafy - Last Filed: 07/18/20 14:25> Assessment and Plan Assessment and plan: -Vasopressor support (CCM and ID consulted, appreciate recommendations) -S/p dexamethasone and remdesivir therapy, contact/droplet isolation, remains on ventilation (wean as tolerated), vitamin C/vitamin D/zinc, anticoagulation per protocol, trend inflammatory markers -CT head with no acute process, supportive care -Wean mechanical ventilation as tolerated, VAP bundle -HD per nephrology -Amiodarone p.o. change to IV amiodarone fpr persistent afib/aflutter now in SR -Transfuse for hemaglobin less than 7, s/p 9 units PRBC during stay -Serial hemoglobin -GI consulted, appreciate recommendations; next step is bleeding study with nuclear med if further studies needed for GI bleeding -CT abdomen/pelvis pending -Switched abx to IV Zosyn alone, will cover Enterococcus per ID -Repeat blood culture ordered -CTA abdomen/pelvis shows no active intermittent GI bleed, bibasilar pneumonia with pneumomediastinum and subcutaneous emphysema in the chest, possible mild infectious or inflammatory colitis, diffuse anasarca within the subcutaneous tissues of the pelvis and upper thighs, bilateral airspace consolidation with air bronchograms and patchy groundglass airspace disease demonstrated throughout the lung bases with no pneumothorax or pleural effusion DVT prophylaxis: GI prophylaxis, heparin subcu, SCDs to bilateral LE while in bed Disposition: ICU, ?placement ?trach/peg ?Ltach History Interval history: 59-year-old white male who was admitted for pneumonia secondary to Covid with associated respiratory failure and sepsis. Severe septic shock COVID-19 pneumonia Acute metabolic encephalopathy Acute hypoxic respiratory failure Enterococcus bacteremia Pneumomediastinum Acute kidney injury likely secondary to acute tubular necrosis which progressed to hemodialysis SVT/proximal atrial fibrillation Elevated LFTs Anemia likely due to severe sepsis had declining renal function Morbid obesity Leukocytosis Hyperkalemia Hypocalcemia Hypoalbuminemia 06/18: Patient got intubated overnight. Patient was placed on BiPAP to maintain oxygenation with 100% FiO2 but apparently he found to take off his argueta which made his oxygen saturation go down at 60s/50s and patient was found altered mental status. Code met was called immediately. Patient was transferred to ICU and intubated, patient currently on 2 pressors, intubated with 100% FiO2, renal function noted to be decline, nephrology consulted. Discussed with [place] physician Dr. Thompson and requested call back on Saturday. Poor prognosis, continue to monitor with aggressive supportive care. Also called family/ to update clinical status. 06/19: Repeat COVID test was positive. cont cefepime, remdesivir per ID recommendation. follow inflammatory markers, cbc, bmp. placed on heparin drip for atrial fib 06/20: Remains on mechanical ventilation, on 2 pressors, on heparin drip. discussed with and daughter by phone. Renal function declining. cont supportive care for now. 06/21: Renal function cont to decline, urine outpt sig decreased. started on lasix 80mg BID, plan to follow urine output, if no improvement patient need to start on HD. called and daughter today. updated all clinical details 06/22: Renal function continues to decline with uremia and hyperkalemia. Will need to proceed with hemodialysis. Nephrology discussed with the family and they agrees for the hemodialysis. Patient remains on pressor support and mechanical ventilation. Vas-Cath placed today by vascular started on hemodialysis today. 06/23: 2nd round of HD today, remains on 2 pressors. per RN not tolerating TF, has no record of BM since 06/18. start on stool softner. follow cbc/bmp. updated family ( and daughter) by phone -all question answered to best of my knowledge and to their satisfaction. Patient remains critically ill with a very poor prognosis. 06/24: Continue supportive care, Very poor prognosis, Hardware Developer to discuss with family in am due to the futility of the condition. 06/25/2020 continue supportive care very poor prognosis 06/26/2020 continue supportive care very poor prognosis family updated 06/27/2020 continue supportive care and weaning if possible 06/28/2020 continue supportive care, talk with at length 06/29: Resumed care. K level persistently high. give one dose of bicarbonate, plan for HD today, recheck k after HD. updated family by phone 06/30: updated family by phone. Patient remains on amiodarone drip and vasopressin. Getting HD at the bedside. Tolerating tube feeding at low rate. 07/01: Hb dropped to 6.4 today, transfuse one unit PRBC. patient is off pressor today, remains on amioderone. cont to monitor 07/02: Called patient and updated clinical details. Patient remains critically ill, still intubated. Patient's oxygen requirement and PEEP pressure has went down. Continue weaning protocol per critical care recommendation. Patient remains off pressor. Continue to wean off from amiodarone and plan to rate control with p.o. medications. Tolerating tube feeding. H&H stable today. Order for stool for occult blood. Monitor H&H and BMP. Continue to follow clinically 07/03: discussed with [facility] physician today. Patient back on 100percent Fio2 since last night. planned for emergent Hd today. spiked fever, start IV Cefepime + Vancomycin renally dosed. Restarted Levophed today, remains on a miodarone drip. Patient family was updated by critical care attending today. 07/04: Patient has hemodialysis yesterday and also plan for today for volume overload and pulmonary edema. Patient currently on 80% FiO2. Remains on Levophed and amiodarone. Hemoglobin dropped to 6.7 without any evidence of active bleeding. LFTs remain stable. Repeat Covid test on 06/30 and 07/03 remains positive. Will transfuse another unit of packed RBC today. Called family for update -explained family that patient is critically ill with very poor prognosis. 07/05: Patient on 70% FiO2 with PEEP of 14. h/h stable after transfusion. hyperkalemia improved, cont sodiumbicarbonate pill with TF. follow BMP. off le vophed today, remains on amioderone. poor prognosis. 07/06: Patient remains on amiodarone drip, maintaining BP without any pressor. FiO2 requirement trended down to 60% with PEEP of 14. Continue to follow clinically. Plan to wean off amiodarone drip as tolerated. Wean off from sedation as tolerated. Updated family. Patient remains critically ill with poor prognosis. 07/07: Called family for update. Off amiodarone drip today, patient also off pressor. FiO2 requirement trended up again to 80-100%. Continue to provide supportive care, monitor clinically. Having difficulty to wean off from the vent support. Patient is persistently positive for COVID-19 and COVID-19 antibody is nonreactive. Patient remains critically ill with very poor prognosis. 07/08: Continue supportive care. Freight Solicitor food safety coordinator and hvac estimator input noted. Prognosis remains guarded to poor. Management per team. Critical care time 35-minute 07/09/20 patient is tachycardic. Heart rate 121. Hemoglobin 7.3. Patient is having hemodialysis. Continue supportive care. Patient having difficulty to wean off from the vent support. Prognosis is poor. Nephrology and cardiology follow-up. Recheck CBC BMP in the morning. Continue current management. 07/10/20 patient seen and examined, remains on full ventilator patient is doing better. Patient is off pressor. heart rate 123. Hemoglobin 6.8 and hematocrit 20.7. WBC is 18.1. Continue supportive care. Patient having difficulty to wean off from the vent support. We will started on Zosyn 4.5 g IV every 8 hours. Will transfuse 1 unit of packed red blood cell. Prognosis is poor. Nephrology and cardiology follow up. Recheck CBC BMP in the morning 07/11: remains off vasopressor, h/h appropriately responded to 1 unit PRBC. HD today. Remain on MV with fiO2 at 70%. peep 10. No acute events reported overnight. 3: Patient remains in atrial fibrillation on the potline monitor, vasopressor support with Levophed and vasopressin, sedated with fentanyl and propofol. Vent settings: CMV 500/25/14/0.60. Patient remains hypercarbic on ABG 07/13: Patient remains on vasopressin, fentanyl and propofol with rectal tube in place. This morning some examination patient was on assist control 25/500/14/0.60. Patient received hemodialysis today. No acute events reported overnight. 07/14: Remains on vasopressin, fentanyl and propofol with tube in place. Rectal tube in place with noted blood clots, GI consulted, on 07/13 H/H dropped from 8.7/27 to 7.4/22 and anticoagulation discontinued. This morning I spoke to his who still wishes for the patient to remain a full code despite update with continued use of vasopressor (vasopressin), current ventilatory support (CMV 500/25/14/0.60) and recent development of rectal bleeding. Patient's family requests an update from [facility] and GI. Cardio changed amio from PO to IV given elevated HR 5: Today the patient received a total of 5 units of PRBC and is still having bleeding through his rectal tube. CTA abdomen/pelvis is pending, patient remains on Levophed, fentanyl, propofol, vasopressin and received hemodialysis today. He was also hyperkalemic today to 6 and he received insulin and D50. Ex tensive conversation with family conducted by CCM and hospitalist and his and 2 daughters did visit him today at the bedside. 07/16: Continues with full ventilatory support. FMS still inplace with some loose bloody stool. Still on multiple pressors, Bilateral swollen and generalized anascara. Monitor H/H and transfuse as needed. Monitor K level. Discussed with family at bedside yesterday. 07/17: Continue supportive care, transfusion blood possible in am with HD, continue abx, very poor prognosis, blood pressure still labile. Discussed with nurse at bedside 07/18: CTA abdomen/pelvis completed, antibiotics changed to Zosyn per infectious disease, remains on mechanical ventilation 450/25/12/0.55 continue amiodarone drip for 24 more hours, blood culture grew Enterococcus. Remains sedated on propofol and fentanyl. Not on vasopressor support today Hospitalist Physical - Constitutional Vitals: Temp Pulse Resp BP Pulse Ox 97.1 F L 63 20 115/58 97 07/18/20 03:55 07/18/20 12:08 07/18/20 12:01 07/18/20 12:08 07/18/20 12:08 General appearance: Present: severe distress, well-nourished - EENT Eyes: Absent: PERRL, EOM intact ENT: poor dentition - Neck Neck: Absent: carotid bruits - Respiratory Respiratory effort: normal Respiratory: bilateral: diminished - Cardiovascular Rhythm: regular Heart Sounds: Present: S1 & S2, systolic murmur, diastolic murmur - Extremities Extremities: no ischemia, pulses intact, pulses symmetrical, normal temperature, normal color Extremity abnormal: edema, cold - Peripheral Assessment Bilateral Generalized Edema Type: Pitting Edema Degree: 2+ Capillary Refill: < 3 seconds Skin Temperature: Cool Peripheral Pulses: within normal limits - Abdominal General gastrointestinal: soft, non-tender, non-distended, hypoactive bowel sounds - Integumentary Integumentary: Present: dry - Psychiatric Psychiatric: other (sedated) - Neurologic Neurologic: other (sedated) HEART Score - HEART Score Troponin: Troponin T < 0.010 ng/mL (0.00-0.029) 06/17/20 12:33 Results - Labs CBC & Chem 7: 07/18/20 05:06 07/18/20 05:06 Labs: Laboratory Last Values WBC 37.9 K/mm3 (4.5-11.0) H 07/18/20 05:06 RBC 2.91 M/mm3 (3.65-5.03) L 07/18/20 05:06 Hgb 8.5 gm/dl (11.8-15.2) L 07/18/20 05:06 Hct 25.6 % (35.5-45.6) L D 07/18/20 05:06 MCV 88 fl (84-94) 07/18/20 05:06 MCH 29 pg (28-32) 07/18/20 05:06 MCHC 33 % (32-34) 07/18/20 05:06 RDW 14.5 % (13.2-15.2) 07/18/20 05:06 Plt Count 219 K/mm3 (140-440) 07/18/20 05:06 Lymph % (Auto) 5.6 % (13.4-35.0) L 07/12/20 03:40 [place] % (Auto) 7.4 % (0.0-7.3) H 07/12/20 03:40 Eos % (Auto) 2.8 % (0.0-4.3) 07/12/20 03:40 Baso % (Auto) 0.3 % (0.0-1.8) 07/12/20 03:40 Lymph # (Auto) 1.4 K/mm3 (1.2-5.4) 07/12/20 03:40 [place] # (Auto) 1.8 K/mm3 (0.0-0.8) H 07/12/20 03:40 Eos # (Auto) 0.7 K/mm3 (0.0-0.4) H 07/12/20 03:40 Baso # (Auto) 0.1 K/mm3 (0.0-0.1) 07/12/20 03:40 Add Manual Diff Complete 07/17/20 15:25 Total Counted 100 07/17/20 15:25 Seg Neutrophils % Flat Surfacer Jewel 07/17/20 15:25 Seg Neuts % (Manual) 87.0 % (40.0-70.0) H 07/17/20 15:25 Band Neutrophils % 7.0 % 07/14/20 16:44 Lymphocytes % (Manual) 3.0 % (13.4-35.0) L 07/17/20 15:25 Reactive Lymphs % (Man) 1.0 % 06/23/20 04:00 Monocytes % (Manual) 7.0 % (0.0-7.3) 07/17/20 15:25 Eosinophils % (Manual) 4.0 % (0.0-4.3) 07/11/20 06:52 Metamyelocytes % 7.0 % 07/14/20 16:44 Myelocytes % 1.0 % 07/17/20 15:25 Promyelocytes % 2.0 % 07/17/20 15:25 Nucleated RBC % Not Reportable 07/17/20 15:25 Seg Neutrophils # 20.4 K/mm3 (1.8-7.7) H 07/12/20 03:40 Seg Neutrophils # Man 40.2 K/mm3 (1.8-7.7) H 07/17/20 15:25 Band Neutrophils # 0.0 K/mm3 07/17/20 15:25 Lymphocytes # (Manual) 1.4 K/mm3 (1.2-5.4) 07/17/20 15:25 Abs React Lymphs (Man) 0.0 K/mm3 07/17/20 15:25 Monocytes # (Manual) 3.2 K/mm3 (0.0-0.8) H 07/17/20 15:25 Eosinophils # (Manual) 0.0 K/mm3 (0.0-0.4) 07/17/20 15:25 Basophils # (Manual) 0.0 K/mm3 (0.0-0.1) 07/17/20 15:25 Metamyelocytes # 0.0 K/mm3 07/17/20 15:25 Myelocytes # 0.5 K/mm3 07/17/20 15:25 Promyelocytes # 0.9 K/mm3 07/17/20 15:25 Blast Cells # 0.0 K/mm3 07/17/20 15:25 Pathologist Review Not Reportable 06/26/20 05:47 WBC Morphology Not Reportable 07/17/20 15:25 Hypersegmented Neuts Not Reportable 07/17/20 15:25 Hyposegmented Neuts Not Reportable 07/17/20 15:25 Hypogranular Neuts Not Reportable 07/17/20 15:25 Smudge Cells Not Reportable 07/17/20 15:25 Toxic Granulation Not Reportable 07/17/20 15:25 Toxic Vacuolation Not Reportable 07/17/20 15:25 Dohle Bodies Not Reportable 07/17/20 15:25 Pelger-Huet Anomaly Not Reportable 07/17/20 15:25 Carlito Rods Not Reportable 07/17/20 15:25 Platelet Estimate Not Reportable 07/17/20 15:25 Clumped Platelets Not Reportable 07/17/20 15:25 Plt Clumps, EDTA Not Reportable 07/17/20 15:25 Large Platelets Not Reportable 07/17/20 15:25 Giant Platelets Not Reportable 07/17/20 15:25 Platelet Satelliting Not Reportable 07/17/20 15:25 Plt Morphology Comment Not Reportable 07/17/20 15:25 RBC Morphology Not Reportable 07/17/20 15:25 Dimorphic RBCs Not Reportable 07/17/20 15:25 Polychromasia Not Reportable 07/17/20 15:25 Hypochromasia Not Reportable 07/17/20 15:25 Poikilocytosis Not Reportable 07/17/20 15:25 Anisocytosis Rare 07/17/20 15:25 Microcytosis Rare 07/17/20 15:25 Macrocytosis Not Reportable 07/17/20 15:25 Spherocytes Not Reportable 07/17/20 15:25 Pappenheimer Bodies Not Reportable 07/17/20 15:25 Sickle Cells Not Reportable 07/17/20 15:25 Target Cells Not Reportable 07/17/20 15:25 Tear Drop Cells Not Reportable 07/17/20 15:25 Ovalocytes Not Reportable 07/17/20 15:25 Stomatocytes Rare 07/10/20 03:55 Helmet Cells Not Reportable 07/17/20 15:25 Brothers-Billingsley Bodies Not Reportable 07/17/20 15:25 [place] Rings Not Reportable 07/17/20 15:25 Livier Cells Not Reportable 07/17/20 15:25 Bite Cells Not Reportable 07/17/20 15:25 Crenated Cell Not Reportable 07/17/20 15:25 Elliptocytes Not Reportable 07/17/20 15:25 Acanthocytes (Spur) Not Reportable 07/17/20 15:25 Rouleaux Not Reportable 07/17/20 15:25 Hemoglobin C Crystals Not Reportable 07/17/20 15:25 Schistocytes Not Reportable 07/17/20 15:25 Malaria parasites Not Reportable 07/17/20 15:25 Victoriano Bodies Not Reportable 07/17/20 15:25 Hem Pathologist Commnt Sent to pathology 07/17/20 15:25 PT 18.2 Sec. (12.2-14.9) H 07/17/20 15:25 INR 1.52 (0.87-1.13) H 07/17/20 15:25 APTT 28.5 Sec. (24.2-36.6) 06/26/20 05:47 Fibrinogen 419 mg/dl (211-480) 07/15/20 08:21 D-Dimer 6608.00 ng/mlDDU (0-234) H 07/03/20 14:50 Heparin Anti-Xa Level < 0.10 U.I./ml (0.3-0.7) L 06/26/20 01:30 ABG pH 7.35 (7.320-7.450) 07/18/20 03:10 POC ABG pCO2 43.3 mmHg (32.0-48.0) 07/18/20 03:10 ABG pCO2 56.4 mm Hg 07/05/20 04:30 POC ABG pO2 114.9 mmHg (83-108) H 07/18/20 03:10 ABG pO2 151.9 mm Hg (80.0-90.0) H 07/05/20 04:30 POC ABG HCO3 23.4 07/18/20 03:10 ABG HCO3 26.8 mmol/L (20.0-26.0) H 07/05/20 04:30 ABG O2 Saturation 98.7 % (95.0-99.0) 07/05/20 04:30 ABG O2 Content 5.0 (0.0-44) 07/04/20 05:20 POC ABG Base Excess -2.1 07/18/20 03:10 ABG Base Excess 0.1 mmol/L (-2.0-3.0) 07/05/20 04:30 ABG Hemoglobin 8.6 (12.0-17.5) L 07/18/20 03:10 ABG Oxyhemoglobin 86.7 (94-98) L 07/16/20 03:38 ABG Carboxyhemoglobin 1.7 % (0.0-5.0) 07/05/20 04:30 ABG Methemoglobin 0.3 (0.0-1.5) 07/16/20 03:38 ABG Sodium 130.6 mmol/L (136.0-145.0) L 07/18/20 03:10 ABG Potassium 4.9 mmol/L (3.40-4.50) H 07/18/20 03:10 ABG Chloride 101.0 mmol/L (98-107) 07/18/20 03:10 ABG Glucose 89 mg/dL (65-95) 07/18/20 03:10 Oxyhemoglobin 96.5 % (95.0-99.0) 07/05/20 04:30 Carboxyhemoglobin 1.2 (0.5-1.5) 07/16/20 03:38 FiO2 65 07/18/20 03:10 Sodium 137 mmol/L (137-145) 07/18/20 05:06 Potassium 5.4 mmol/L (3.6-5.0) H 07/18/20 05:06 Chloride 98.3 mmol/L (98-107) 07/18/20 05:06 Carbon Dioxide 22 mmol/L (22-30) 07/18/20 05:06 Anion Gap 22 mmol/L 07/18/20 05:06 BUN 79 mg/dL (9-20) H 07/18/20 05:06 Creatinine 3.2 mg/dL (0.8-1.3) H 07/18/20 05:06 Estimated GFR 24 ml/min 07/18/20 05:06 BUN/Creatinine Ratio 25 % 07/18/20 05:06 Glucose 88 mg/dL (75-100) 07/18/20 05:06 POC Glucose 79 mg/dL (70-105) 07/18/20 05:42 Lactic Acid 1.40 mmol/L (0.7-2.0) 07/13/20 08:48 Calcium 6.9 mg/dL (8.4-10.2) L 07/18/20 05:06 Phosphorus 9.40 mg/dL (2.5-4.5) H 06/30/20 03:50 Magnesium 2.70 mg/dL (1.7-2.3) H 06/18/20 20:33 Ferritin 1171.0 ng/mL (30.0-300.0) H 07/03/20 14:50 Total Bilirubin 0.40 mg/dL (0.1-1.2) 07/18/20 05:06 Direct Bilirubin 0.5 mg/dL (0-0.2) H 07/05/20 08:21 Indirect Bilirubin 0.1 mg/dL 07/05/20 08:21 AST 40 units/L (5-40) 07/18/20 05:06 ALT 58 units/L (7-56) H 07/18/20 05:06 Alkaline Phosphatase 102 units/L (35-129) 07/18/20 05:06 Lactate Dehydrogenase 525 units/L (91-180) H 07/03/20 14:50 Total Creatine Kinase 618 units/L (55-170) H 06/29/20 Unknown Troponin T < 0.010 ng/mL (0.00-0.029) 06/17/20 12:33 C-Reactive Protein 31.50 mg/dL (0.00-1.30) H 07/03/20 14:50 Total Protein 4.3 g/dL (6.3-8.2) L D 07/18/20 05:06 Albumin 1.7 g/dL (3.9-5) L 07/18/20 05:06 Albumin/Globulin Ratio 0.7 % 07/18/20 05:06 Triglycerides 306 mg/dL (2-149) H 07/18/20 05:06 Procalcitonin 6.05 ng/mL (<0.15) 07/13/20 06:59 Arterial Blood Glucose 89 mg/dL (65-95) 07/18/20 03:10 Arterial Blood Ionized Calcium 3.8 mg/dL (4.6-5.3) L 07/18/20 03:10 Urine Color Yellow (Yellow) 06/17/20 15:57 Urine Turbidity Clear (Clear) 06/17/20 15:57 Urine pH 6.0 (5.0-7.0) 06/17/20 15:57 Ur Specific [place] 1.019 (1.003-1.030) 06/17/20 15:57 Urine Protein 30 mg/dl mg/dL (Negative) 06/17/20 15:57 Urine Glucose (UA) Neg mg/dL (Negative) 06/17/20 15:57 Urine Ketones Neg mg/dL (Negative) 06/17/20 15:57 Urine Blood Sm (Negative) 06/17/20 15:57 Urine Nitrite Neg (Negative) 06/17/20 15:57 Ur Reducing Substances Not Reportable 06/17/20 15:57 Urine Bilirubin Neg (Negative) 06/17/20 15:57 Urine Ictotest Not Reportable 06/17/20 15:57 Urine Urobilinogen < 2.0 mg/dL (<2.0) 06/17/20 15:57 Ur Leukocyte Esterase Neg (Negative) 06/17/20 15:57 Urine WBC (Auto) 1.0 /HPF (0.0-6.0) 06/17/20 15:57 Urine RBC (Auto) 2.0 /HPF (0.0-6.0) 06/17/20 15:57 Urine Mucus Few /HPF 06/17/20 15:57 Urine Creatinine 192.4 mg/dL (0.1-20.0) H 06/18/20 15:00 Urine Sodium 28 mmol/L 06/18/20 15:00 Urine Chloride 31.1 mmolL (110-250) L 06/18/20 15:00 Nasal Screen MRSA (PCR) Negative (Negative) 06/19/20 10:38 Vancomycin Trough 22.7 ug/mL (5.0-20.0) H 06/20/20 08:25 Random Vancomycin 13.5 ug/mL (0-40.0) 07/16/20 07:17 Coronavirus (PCR) Positive (Negative) A 07/03/20 10:10 Hepatitis A IgM Ab Non-reactive (NonReactive) 06/22/20 17:00 Hep Bs Antigen Non-reactive (Negative) 06/22/20 17:00 Hep B Core IgM Ab Non-reactive (NonReactive) 06/22/20 17:00 Hepatitis C Antibody Non-reactive (NonReactive) 06/22/20 17:00 SARS-CoV-2 IgG Ab Nonreactive (NonReactive) 07/04/20 05:20 Blood Type A POSITIVE 07/17/20 Unknown Antibody Screen Negative 07/17/20 Unknown Crossmatch See Detail 07/17/20 Unknown Microbiology: Microbiology 07/15/20 08:21 Peripheral/Venous Blood Fungal Culture - Preliminary Enterococcus Faecalis 07/15/20 08:21 Peripheral/Venous Blood Culture - Preliminary NO GROWTH AFTER 72 HOURS 07/15/20 08:38 Peripheral/Venous Blood Culture - Preliminary NO GROWTH AFTER 72 HOURS 07/15/20 Unknown Tracheal Aspirate Sputum Culture - Final - Diagnostic Impressions Diagnostic Impressions: Echocardiogram 06/29/20 06:00 Transthoracic Echocardiogram Indication: A-fib BP: 105/47 HR: 99 Conclusions *The study is technically very difficult and limited due to poor acoustic windows. *Global left ventricular wall motion and contractility are within normal limits. *The estimated ejection fraction is 55-60%. *There is no pericardial effusion. Findings Procedure Info: The study quality is technically difficult. The study is technically limited due to poor acoustic windows. Left Ventricle: Global left ventricular wall motion and contractility are within normal limits. Global left ventricular systolic function is normal. The estimated ejection fraction is 55-60%. Left Atrium: The left atrium is not well visualized. Right Ventricle: The right ventricle is not well visualized. Right Atrium: The right atrium is not well visualized. Aortic Valve: The aortic valve is not well visualized. Mitral Valve: The mitral valve is not well visualized. Tricuspid Valve: The tricuspid valve is not well visualized. Pulmonic Valve: The pulmonic valve is not well visualized. Pericardium: There is no pericardial effusion. Venous: There is no change in the dimension of the inferior vena cava with respiration consistent with markedly increased right atrial pressure. [place]/IV: Voiding Method Incontinent Active Medications - Current Medications Current Medications: Generic Name Dose Route Start Last Admin Trade Name Freq PRN Reason Stop Dose Admin Acetaminophen 650 mg 06/17/20 14:17 07/03/20 09:16 Acetaminophen 325 Mg Tab PO 650 mg Q4H PRN Administration Pain MILD(1-3)/Fever >100.5/ROBERTS Lipase/Protease/Amylase 1 each 06/19/20 12:15 Lipase 10,500/Protease 25,000/Amylase 43,750 (Units) Dr Cap FEEDTUBE PRN PRN For Clogged Feeding Tube Ascorbic Acid 250 mg 06/17/20 22:00 07/18/20 11:57 Ascorbic Acid 250 Mg Tab PO Not Given BID [facility] Cholecalciferol 1,000 unit 06/18/20 10:00 07/18/20 11:57 Cholecalciferol (Vit D3) 1000 Unit (25 Mcg) Tab PO Not Given DAILY [facility] Docusate Sodium 100 mg 06/23/20 15:00 07/18/20 11:57 Docusate Sodium 100 Mg/10 Ml Oral Liqd FEEDTUBE Not Given BID CONNOR Fentanyl 50 mcg 06/18/20 01:02 07/09/20 00:20 Fentanyl 100 Mcg/2 Ml Inj IV 50 mcg Q10MIN PRN Administration ANALGESIA Heparin Sodium (Porcine) 5,000 unit 06/22/20 12:53 06/30/20 13:36 Heparin 10,000 Unit/1 Ml Vial IV 5,000 unit PAM PRN Administration hemodialysis Hydrophilic Ointment 1 applic 06/17/20 22:52 07/12/20 20:22 Lip Therapy Vaseline TP 1 applic Q2HR PRN Administration Dry Lips Propofol 1,000 mg in 100 mls @ 3.402 mls/hr 06/18/20 01:00 07/18/20 12:26 Diprivan 10 Mg/Ml IV 10 mcg/kg/min TITR CONNOR 6.804 mls/hr Administration Protocol 5 MCG/KG/MIN Fentanyl Citrate 2,000 mcg in 100 mls @ 8 mls/hr 06/18/20 02:00 07/18/20 13:56 Fentanyl Drip Premix IV 3 mcg/kg/hr TITR CONNOR 24 mls/hr Administration Protocol 1 MCG/KG/HR Norepinephrine 4 mg in 250 mls @ 7.5 mls/hr 07/08/20 02:06 07/18/20 02:17 Levophed Drip 4 Mg/Ns 250 Ml IV 0 mcg/min TITR CONNOR 0 mls/hr Titration Protocol 2 MCG/MIN Vasopressin 20 unit/ Sodium 101 mls @ 9.09 mls/hr 07/11/20 11:00 07/18/20 14:06 Chloride IV 0 units/min TITR CONNOR 0 mls/hr Titration Protocol 0.03 UNITS/MIN Amiodarone HCl 900 mg/ 500 mls @ 33.333 mls/hr 07/14/20 12:30 07/17/20 18:21 Dextrose IV 0.5 mg/min DIRECT CONNOR 16.667 mls/hr Administration Protocol 1 MG/MIN Sodium Chloride 100 mls @ 999 mls/hr 07/15/20 14:18 Nacl 0.9% IV PAM PRN Hypotension Piperacillin Sod/Tazobactam Sod 4.5 gm in 100 mls @ 200 mls/hr 07/18/20 13:00 07/18/20 13:24 Zosyn/Ns 4.5gm/100ml IV 200 mls/hr Q12H [facility] Administration Protocol Insulin Human Regular 0 units 06/18/20 12:00 07/18/20 11:58 Insulin Regular, Human 100 Units/1 Ml SUB-Q Not Given Q6HR [facility] Protocol Multi-Ingred Cream/Lotion/Oil/Oint 1 applic 06/17/20 22:52 07/12/20 20:22 Mineral Oil/Petrolatum, White Ophth Oint 3.5 Gm OU 1 applic Q4HR PRN Administration Dry Eye(s) Ondansetron HCl 4 mg 06/17/20 14:17 Ondansetron 4 Mg/2 Ml Inj IV Q8H PRN Nausea And Vomiting Pantoprazole Sodium 40 mg 07/16/20 22:00 07/18/20 10:24 Pantoprazole 40 Mg Inj IV 40 mg BID CONNOR Administration Polyethylene Glycol 17 gm 06/23/20 15:00 07/18/20 11:57 Polyethylene Glycol 3350 17 Gm Powder PO Not Given QDAY [facility] Quetiapine Fumarate 200 mg 06/28/20 13:00 07/18/20 11:57 Quetiapine 200 Mg Tab PO Not Given BID CONNOR Simple Syrup 15 ml 06/19/20 12:15 Simple Syrup 15 Ml FEEDTUBE PRN PRN Hypoglycemia Simple Syrup 30 ml 06/19/20 12:15 Simple Syrup 15 Ml FEEDTUBE PRN PRN Hypoglycemia Sodium Bicarbonate 325 mg 06/19/20 12:15 07/11/20 20:00 Sodium Bicarbonate 325 Mg Tab FEEDTUBE 325 mg PRN PRN Administration For Clogged Feeding Tube Sodium Bicarbonate 650 mg 07/04/20 10:00 07/18/20 13:24 Sodium Bicarbonate 650 Mg Tab PO 650 mg TID [facility] Administration Sodium Chloride 10 ml 06/17/20 22:00 07/18/20 11:56 Sodium Chloride 0.9% 10 Ml Flush Syringe IV 10 ml BID CONNOR Administration Sodium Chloride 10 ml 06/17/20 14:17 Sodium Chloride 0.9% 10 Ml Flush Syringe IV PRN PRN LINE FLUSH Sodium Polystyrene Sulfonate 15 gm 07/03/20 11:19 07/05/20 10:36 Sodium Polystyrene 15 Gm/60 Ml Oral Liqd PO 15 gm Q6HR PRN Administration Hyperkalemia Zinc Sulfate 220 mg 06/17/20 22:00 07/18/20 11:58 Zinc Sulfate 220 Mg Cap PO Not Given BID CONNOR Nutrition/Malnutrition Assess - Dietary Evaluation Nutrition/Malnutrition Findings: Nutrition Notes Start: 06/18/20 1 0:28 Freq: Status: Active Protocol: Document 07/12/20 11:11 AL (Rec: 07/12/20 11:15 AL [id number]) Co-Sign 07/12/20 11:11 LP Nutrition Notes Initial or Follow up Reassessment Current Diagnosis Acute Kidney Injury,Sepsis, Respiratory Failure Other Pertinent Diagnosis COVID-19 (+), pneu Current Diet Nepro 1.8 at 40ml/hr Labs/Tests Na 134 BUN 79 Cr 3.7 Pertinent Medications Propofol at 6.8 ml/hr (180 kcal) Levophed Vasopressin Height 6 ft Weight 160 kg [place] Body Weight (kg) 80.90 BMI 47.8 Weight change and time frame Wt change of 30 kg noted. Pt on HD Weight Status Obese Subjective/Other Information FU for stable TF. Pt tolerating TF at 40 ml/hr ( goal rate). Percent of energy/protein needs met: 89%/48% Burn Absent Trauma Absent Current % PO Negligible Minimum of two criteria No physical signs of malnutrition #2 Nutrition Diagnosis Overweight/obesity Diagnosis Progress(for reassessment Continues documentation) #1 Nutrition Diagnosis Inadequate oral intake Diagnosis Progress(for reassessment Continues documentation) Is patient on ventilator? Yes Is Patient Ambulatory and/or Out of Bed No REE-([facility]-confined to bed) 2929.632 Kcal/Kg value to use for calculation 12 Approximate Energy Requirements Using 1920 kcal/Kg Calculation Used for Recommendations Kcal/kg Additional Notes Protein needs up to >2 g/kg IBW: 162 g Fluid needs: 1,000 ml + output Nutrition Intervention Change Diet Order: TF Nutrition Support: Nepro 1.8 at 50 ml/hr Flush 215 ml q4h Kcal 2,160 Protein (gm) 97 Fluid (mL) 872 Goal #1 Tolerate TF at goal rate Goal #2 Meet energy and protein needs as best as possible. Anticipated Discharge Needs: Unable to determine at the time. Follow-Up By: 07/19/20 Additional Comments F/U for TF tolerance and vent status <ZEESHAN CHAIDEZ - Last Filed: 07/22/20 07:38> Assessment and Plan Assessment and plan: I saw and evaluated the patient. I agree with the findings and the plan of care as documented in the Nurse Practitioner's~note, with the following corrections and additions. Hospitalist Physical - Constitutional Vitals: Temp Pulse Resp BP Pulse Ox 98.7 F 66 23 118/54 96 07/22/20 04:00 07/22/20 06:16 07/22/20 06:16 07/22/20 06:16 07/22/20 06:16 HEART Score - HEART Score Troponin: Troponin T < 0.010 ng/mL (0.00-0.029) 06/17/20 12:33 Results - Labs CBC & Chem 7: 07/21/20 05:02 07/19/20 09:15 Labs: Laboratory Last Values WBC 32.9 K/mm3 (4.5-11.0) H 07/21/20 05:02 RBC 2.78 M/mm3 (3.65-5.03) L 07/21/20 05:02 Hgb 8.5 gm/dl (11.8-15.2) L 07/21/20 05:02 Hct 25.2 % (35.5-45.6) L 07/21/20 05:02 MCV 91 fl (84-94) 07/21/20 05:02 MCH 31 pg (28-32) 07/21/20 05:02 MCHC 34 % (32-34) 07/21/20 05:02 RDW 15.7 % (13.2-15.2) H 07/21/20 05:02 Plt Count 74 K/mm3 (140-440) L 07/21/20 05:02 Lymph % (Auto) 5.6 % (13.4-35.0) L 07/12/20 03:40 [place] % (Auto) 7.4 % (0.0-7.3) H 07/12/20 03:40 Eos % (Auto) 2.8 % (0.0-4.3) 07/12/20 03:40 Baso % (Auto) 0.3 % (0.0-1.8) 07/12/20 03:40 Lymph # (Auto) 1.4 K/mm3 (1.2-5.4) 07/12/20 03:40 [place] # (Auto) 1.8 K/mm3 (0.0-0.8) H 07/12/20 03:40 Eos # (Auto) 0.7 K/mm3 (0.0-0.4) H 07/12/20 03:40 Baso # (Auto) 0.1 K/mm3 (0.0-0.1) 07/12/20 03:40 Add Manual Diff Complete 07/17/20 15:25 Total Counted 100 07/17/20 15:25 Seg Neutrophils % Flat Surfacer Jewel 07/17/20 15:25 Seg Neuts % (Manual) 87.0 % (40.0-70.0) H 07/17/20 15:25 Band Neutrophils % 2 % 07/17/20 15:25 Lymphocytes % (Manual) 3.0 % (13.4-35.0) L 07/17/20 15:25 Reactive Lymphs % (Man) 1.0 % 06/23/20 04:00 Monocytes % (Manual) 7.0 % (0.0-7.3) 07/17/20 15:25 Eosinophils % (Manual) 4.0 % (0.0-4.3) 07/11/20 06:52 Metamyelocytes % 1 % 07/17/20 15:25 Myelocytes % 0 % 07/17/20 15:25 Promyelocytes % 0 % 07/17/20 15:25 Nucleated RBC % Not Reportable 07/17/20 15:25 Seg Neutrophils # 20.4 K/mm3 (1.8-7.7) H 07/12/20 03:40 Seg Neutrophils # Man 40.2 K/mm3 (1.8-7.7) H 07/17/20 15:25 Band Neutrophils # 0.9 K/mm3 07/17/20 15:25 Lymphocytes # (Manual) 1.4 K/mm3 (1.2-5.4) 07/17/20 15:25 Abs React Lymphs (Man) 0.0 K/mm3 07/17/20 15:25 Monocytes # (Manual) 3.2 K/mm3 (0.0-0.8) H 07/17/20 15:25 Eosinophils # (Manual) 0.0 K/mm3 (0.0-0.4) 07/17/20 15:25 Basophils # (Manual) 0.0 K/mm3 (0.0-0.1) 07/17/20 15:25 Metamyelocytes # 0.5 K/mm3 07/17/20 15:25 Myelocytes # 0.0 K/mm3 07/17/20 15:25 Promyelocytes # 0.0 K/mm3 07/17/20 15:25 Blast Cells # 0.0 K/mm3 07/17/20 15:25 Pathologist Review 07/17/20 15:25 WBC Morphology Not Reportable 07/17/20 15:25 Hypersegmented Neuts Not Reportable 07/17/20 15:25 Hyposegmented Neuts Not Reportable 07/17/20 15:25 Hypogranular Neuts Not Reportable 07/17/20 15:25 Smudge Cells Not Reportable 07/17/20 15:25 Toxic Granulation Not Reportable 07/17/20 15:25 Toxic Vacuolation Not Reportable 07/17/20 15:25 Dohle Bodies Not Reportable 07/17/20 15:25 Pelger-Huet Anomaly Not Reportable 07/17/20 15:25 Carlito Rods Not Reportable 07/17/20 15:25 Platelet Estimate Not Reportable 07/17/20 15:25 Clumped Platelets Not Reportable 07/17/20 15:25 Plt Clumps, EDTA Not Reportable 07/17/20 15:25 Large Platelets Not Reportable 07/17/20 15:25 Giant Platelets Not Reportable 07/17/20 15:25 Platelet Satelliting Not Reportable 07/17/20 15:25 Plt Morphology Comment Not Reportable 07/17/20 15:25 RBC Morphology Not Reportable 07/17/20 15:25 Dimorphic RBCs Not Reportable 07/17/20 15:25 Polychromasia Not Reportable 07/17/20 15:25 Hypochromasia Not Reportable 07/17/20 15:25 Poikilocytosis Not Reportable 07/17/20 15:25 Anisocytosis Rare 07/17/20 15:25 Microcytosis Rare 07/17/20 15:25 Macrocytosis Not Reportable 07/17/20 15:25 Spherocytes Not Reportable 07/17/20 15:25 Pappenheimer Bodies Not Reportable 07/17/20 15:25 Sickle Cells Not Reportable 07/17/20 15:25 Target Cells Not Reportable 07/17/20 15:25 Tear Drop Cells Not Reportable 07/17/20 15:25 Ovalocytes Not Reportable 07/17/20 15:25 Stomatocytes Rare 07/10/20 03:55 Helmet Cells Not Reportable 07/17/20 15:25 Brothers-Billingsley Bodies Not Reportable 07/17/20 15:25 [place] Rings Not Reportable 07/17/20 15:25 Livier Cells Not Reportable 07/17/20 15:25 Bite Cells Not Reportable 07/17/20 15:25 Crenated Cell Not Reportable 07/17/20 15:25 Elliptocytes Not Reportable 07/17/20 15:25 Acanthocytes (Spur) Not Reportable 07/17/20 15:25 Rouleaux Not Reportable 07/17/20 15:25 Hemoglobin C Crystals Not Reportable 07/17/20 15:25 Schistocytes Not Reportable 07/17/20 15:25 Malaria parasites Not Reportable 07/17/20 15:25 Victoriano Bodies Not Reportable 07/17/20 15:25 Hem Pathologist Commnt Sent to pathology 07/17/20 15:25 PT 18.2 Sec. (12.2-14.9) H 07/17/20 15:25 INR 1.52 (0.87-1.13) H 07/17/20 15:25 APTT 28.5 Sec. (24.2-36.6) 06/26/20 05:47 Fibrinogen 419 mg/dl (211-480) 07/15/20 08:21 D-Dimer 6608.00 ng/mlDDU (0-234) H 07/03/20 14:50 Heparin Anti-Xa Level < 0.10 U.I./ml (0.3-0.7) L 06/26/20 01:30 ABG pH 7.399 (7.320-7.450) 07/22/20 04:11 POC ABG pCO2 44.3 mmHg (32.0-48.0) 07/22/20 04:11 ABG pCO2 56.4 mm Hg 07/05/20 04:30 POC ABG pO2 67.7 mmHg (83-108) L 07/22/20 04:11 ABG pO2 151.9 mm Hg (80.0-90.0) H 07/05/20 04:30 POC ABG HCO3 26.8 07/22/20 04:11 ABG HCO3 26.8 mmol/L (20.0-26.0) H 07/05/20 04:30 ABG O2 Saturation 93.2 (0-100) 07/22/20 04:11 ABG O2 Content 5.0 (0.0-44) 07/04/20 05:20 POC ABG Base Excess 1.7 07/22/20 04:11 ABG Base Excess 0.1 mmol/L (-2.0-3.0) 07/05/20 04:30 ABG Hemoglobin 7.4 (12.0-17.5) L 07/22/20 04:11 ABG Oxyhemoglobin 91.7 (94-98) L 07/22/20 04:11 ABG Carboxyhemoglobin 1.7 % (0.0-5.0) 07/05/20 04:30 ABG Methemoglobin 0.3 (0.0-1.5) 07/22/20 04:11 ABG Sodium 136.1 mmol/L (136.0-145.0) 07/22/20 04:11 ABG Potassium 2.9 mmol/L (3.40-4.50) L 07/22/20 04:11 ABG Chloride 105.0 mmol/L (98-107) 07/22/20 04:11 ABG Glucose 105 mg/dL (65-95) H 07/22/20 04:11 Oxyhemoglobin 96.5 % (95.0-99.0) 07/05/20 04:30 Carboxyhemoglobin 1.3 (0.5-1.5) 07/22/20 04:11 FiO2 50 07/20/20 06:00 FiO2 % 40 07/22/20 04:11 Sodium 135 mmol/L (137-145) L 07/19/20 09:15 Potassium 4.2 mmol/L (3.6-5.0) D 07/19/20 09:15 Chloride 96.3 mmol/L (98-107) L 07/19/20 09:15 Carbon Dioxide 25 mmol/L (22-30) 07/19/20 09:15 Anion Gap 18 mmol/L 07/19/20 09:15 BUN 61 mg/dL (9-20) H 07/19/20 09:15 Creatinine 2.8 mg/dL (0.8-1.3) H 07/19/20 09:15 Estimated GFR 28 ml/min 07/19/20 09:15 BUN/Creatinine Ratio 22 % 07/19/20 09:15 Glucose 87 mg/dL (75-100) 07/19/20 09:15 POC Glucose 79 mg/dL (70-105) 07/21/20 23:24 Lactic Acid 1.40 mmol/L (0.7-2.0) 07/13/20 08:48 Calcium 6.8 mg/dL (8.4-10.2) L 07/19/20 09:15 Phosphorus 9.40 mg/dL (2.5-4.5) H 06/30/20 03:50 Magnesium 2.70 mg/dL (1.7-2.3) H 06/18/20 20:33 Ferritin 1171.0 ng/mL (30.0-300.0) H 07/03/20 14:50 Total Bilirubin 0.40 mg/dL (0.1-1.2) 07/19/20 09:15 Direct Bilirubin 0.5 mg/dL (0-0.2) H 07/05/20 08:21 Indirect Bilirubin 0.1 mg/dL 07/05/20 08:21 AST 54 units/L (5-40) H 07/19/20 09:15 ALT 65 units/L (7-56) H 07/19/20 09:15 Alkaline Phosphatase 116 units/L (35-129) 07/19/20 09:15 Lactate Dehydrogenase 525 units/L (91-180) H 07/03/20 14:50 Total Creatine Kinase 618 units/L (55-170) H 06/29/20 Unknown Troponin T < 0.010 ng/mL (0.00-0.029) 06/17/20 12:33 C-Reactive Protein 31.50 mg/dL (0.00-1.30) H 07/03/20 14:50 Total Protein 4.3 g/dL (6.3-8.2) L 07/19/20 09:15 Albumin 1.8 g/dL (3.9-5) L 07/19/20 09:15 Albumin/Globulin Ratio 0.7 % 07/19/20 09:15 Triglycerides 306 mg/dL (2-149) H 07/18/20 05:06 Procalcitonin 6.05 ng/mL (<0.15) 07/13/20 06:59 Arterial Blood Glucose 105 mg/dL (65-95) H 07/22/20 04:11 Arterial Blood Ionized Calcium 4.9 mg/dL (4.6-5.3) 07/22/20 04:11 Urine Color Yellow (Yellow) 06/17/20 15:57 Urine Turbidity Clear (Clear) 06/17/20 15:57 Urine pH 6.0 (5.0-7.0) 06/17/20 15:57 Ur Specific [place] 1.019 (1.003-1.030) 06/17/20 15:57 Urine Protein 30 mg/dl mg/dL (Negative) 06/17/20 15:57 Urine Glucose (UA) Neg mg/dL (Negative) 06/17/20 15:57 Urine Ketones Neg mg/dL (Negative) 06/17/20 15:57 Urine Blood Sm (Negative) 06/17/20 15:57 Urine Nitrite Neg (Negative) 06/17/20 15:57 Ur Reducing Substances Not Reportable 06/17/20 15:57 Urine Bilirubin Neg (Negative) 06/17/20 15:57 Urine Ictotest Not Reportable 06/17/20 15:57 Urine Urobilinogen < 2.0 mg/dL (<2.0) 06/17/20 15:57 Ur Leukocyte Esterase Neg (Negative) 06/17/20 15:57 Urine WBC (Auto) 1.0 /HPF (0.0-6.0) 06/17/20 15:57 Urine RBC (Auto) 2.0 /HPF (0.0-6.0) 06/17/20 15:57 Urine Mucus Few /HPF 06/17/20 15:57 Urine Creatinine 192.4 mg/dL (0.1-20.0) H 06/18/20 15:00 Urine Sodium 28 mmol/L 06/18/20 15:00 Urine Chloride 31.1 mmolL (110-250) L 06/18/20 15:00 Nasal Screen MRSA (PCR) Negative (Negative) 06/19/20 10:38 Vancomycin Trough 22.7 ug/mL (5.0-20.0) H 06/20/20 08:25 Random Vancomycin 13.5 ug/mL (0-40.0) 07/16/20 07:17 Coronavirus (PCR) Positive (Negative) A 07/03/20 10:10 Hepatitis A IgM Ab Non-reactive (NonReactive) 06/22/20 17:00 Hep Bs Antigen Non-reactive (Negative) 06/22/20 17:00 Hep B Core IgM Ab Non-reactive (NonReactive) 06/22/20 17:00 Hepatitis C Antibody Non-reactive (NonReactive) 06/22/20 17:00 SARS-CoV-2 IgG Ab Nonreactive (NonReactive) 07/04/20 05:20 Blood Type A POSITIVE 07/17/20 Unknown Antibody Screen Negative 07/17/20 Unknown Crossmatch See Detail 07/17/20 Unknown Microbiology: Microbiology 07/18/20 18:20 Peripheral/Venous Blood Culture - Preliminary NO GROWTH AFTER 72 HOURS 07/18/20 18:05 Peripheral/Venous Blood Culture - Preliminary NO GROWTH AFTER 72 HOURS - Diagnostic Impressions Diagnostic Impressions: Echocardiogram 06/29/20 06:00 Transthoracic Echocardiogram Indication: A-fib BP: 105/47 HR: 99 Conclusions *The study is technically very difficult and limited due to poor acoustic windows. *Global left ventricular wall motion and contractility are within normal limits. *The estimated ejection fraction is 55-60%. *There is no pericardial effusion. Findings Procedure Info: The study quality is technically difficult. The study is technically limited due to poor acoustic windows. Left Ventricle: Global left ventricular wall motion and contractility are within normal limits. Global left ventricular systolic function is normal. The estimated ejection fraction is 55-60%. Left Atrium: The left atrium is not well visualized. Right Ventricle: The right ventricle is not well visualized. Right Atrium: The right atrium is not well visualized. Aortic Valve: The aortic valve is not well visualized. Mitral Valve: The mitral valve is not well visualized. Tricuspid Valve: The tricuspid valve is not well visualized. Pulmonic Valve: The pulmonic valve is not well visualized. Pericardium: There is no pericardial effusion. Venous: There is no change in the dimension of the inferior vena cava with respiration consistent with markedly increased right atrial pressure. [place]/IV: Voiding Method Incontinent Active Medications - Current Medications Current Medications: Generic Name Dose Route Start Last Admin Trade Name Freq PRN Reason Stop Dose Admin Acetaminophen 650 mg 06/17/20 14:17 07/03/20 09:16 Acetaminophen 325 Mg Tab PO 650 mg Q4H PRN Administration Pain MILD(1-3)/Fever >100.5/ROBERTS Albuterol 2.5 mg 07/19/20 12:15 Albuterol 2.5 Mg/3 Ml Nebu IH Q6HRT PRN Shortness Of Breath Amiodarone HCl 200 mg 07/19/20 14:00 07/21/20 21:11 Amiodarone 200 Mg Tab PO 200 mg BID CONNOR Administration Lipase/Protease/Amylase 1 each 06/19/20 12:15 Lipase 10,500/Protease 25,000/Amylase 43,750 (Units) Dr Kulkarni FEEDTUBE PRN PRN For Clogged Feeding Tube Ascorbic Acid 250 mg 06/17/20 22:00 07/21/20 21:12 Ascorbic Acid 250 Mg Tab PO 250 mg BID CONNOR Administration Cholecalciferol 1,000 unit 06/18/20 10:00 07/21/20 09:30 Cholecalciferol (Vit D3) 1000 Unit (25 Mcg) Tab PO 1,000 unit DAILY CONNOR Administration Docusate Sodium 100 mg 06/23/20 15:00 07/21/20 21:11 Docusate Sodium 100 Mg/10 Ml Oral Liqd FEEDTUBE 100 mg BID CONNOR Administration Fentanyl 50 mcg 06/18/20 01:02 07/09/20 00:20 Fentanyl 100 Mcg/2 Ml Inj IV 50 mcg Q10MIN PRN Administration ANALGESIA Heparin Sodium (Porcine) 5,000 unit 06/22/20 12:53 06/30/20 13:36 Heparin 10,000 Unit/1 Ml Vial IV 5,000 unit PAM PRN Administration hemodialysis Hydrophilic Ointment 1 applic 06/17/20 22:52 07/12/20 20:22 Lip Therapy Vaseline TP 1 applic Q2HR PRN Administration Dry Lips Propofol 1,000 mg in 100 mls @ 3.402 mls/hr 06/18/20 01:00 07/22/20 04:24 Diprivan 10 Mg/Ml IV 10 mcg/kg/min TITR CONNOR 6.804 mls/hr Administration Protocol 5 MCG/KG/MIN Fentanyl Citrate 2,000 mcg in 100 mls @ 8 mls/hr 06/18/20 02:00 07/22/20 04:23 Fentanyl Drip Premix IV 2 mcg/kg/hr TITR CONNOR 16 mls/hr Administration Protocol 1 MCG/KG/HR Norepinephrine 4 mg in 250 mls @ 7.5 mls/hr 07/08/20 02:06 07/21/20 06:49 Levophed Drip 4 Mg/Ns 250 Ml IV 0 mcg/min TITR CONNOR 0 mls/hr Titration Protocol 2 MCG/MIN Vasopressin 20 unit/ Sodium 101 mls @ 9.09 mls/hr 07/11/20 11:00 07/18/20 15:36 Chloride IV 0 units/min TITR CONNOR 0 mls/hr Titration Protocol 0.03 UNITS/MIN Sodium Chloride 100 mls @ 999 mls/hr 07/19/20 08:22 Nacl 0.9% IV PAM PRN Hypotension Ampicillin Sodium 2 gm in 100 mls @ 100 mls/hr 07/21/20 12:00 07/22/20 00:57 Ampicillin/Ns 2 Gm/100 Ml IV 08/02/20 12:59 100 mls/hr Q12H CONNOR Administration Protocol Insulin Human Regular 0 units 06/18/20 12:00 07/22/20 06:53 Insulin Regular, Human 100 Units/1 Ml SUB-Q Not Given Q6HR [facility] Protocol Multi-Ingred Cream/Lotion/Oil/Oint 1 applic 06/17/20 22:52 07/12/20 20:22 Mineral Oil/Petrolatum, White Ophth Oint 3.5 Gm OU 1 applic Q4HR PRN Administration Dry Eye(s) Ondansetron HCl 4 mg 06/17/20 14:17 Ondansetron 4 Mg/2 Ml Inj IV Q8H PRN Nausea And Vomiting Pantoprazole Sodium 40 mg 07/16/20 22:00 07/21/20 21:12 Pantoprazole 40 Mg Inj IV 40 mg BID CONNOR Administration Polyethylene Glycol 17 gm 06/23/20 15:00 07/21/20 09:39 Polyethylene Glycol 3350 17 Gm Powder PO 17 gm QDAY CONNOR Administration Quetiapine Fumarate 200 mg 06/28/20 13:00 07/21/20 21:12 Quetiapine 200 Mg Tab PO 200 mg BID CONNOR Administration Simple Syrup 15 ml 06/19/20 12:15 07/19/20 00:48 Simple Syrup 15 Ml FEEDTUBE 15 ml PRN PRN Administration Hypoglycemia Simple Syrup 30 ml 06/19/20 12:15 07/19/20 06:04 Simple Syrup 15 Ml FEEDTUBE 30 ml PRN PRN Administration Hypoglycemia Sodium Bicarbonate 325 mg 06/19/20 12:15 07/11/20 20:00 Sodium Bicarbonate 325 Mg Tab FEEDTUBE 325 mg PRN PRN Administration For Clogged Feeding Tube Sodium Bicarbonate 650 mg 07/04/20 10:00 07/21/20 20:43 Sodium Bicarbonate 650 Mg Tab PO 650 mg TID CONNOR Administration Sodium Chloride 10 ml 06/17/20 22:00 07/21/20 21:12 Sodium Chloride 0.9% 10 Ml Flush Syringe IV 10 ml BID CONNOR Administration Sodium Chloride 10 ml 06/17/20 14:17 Sodium Chloride 0.9% 10 Ml Flush Syringe IV PRN PRN LINE FLUSH Sodium Hypochlorite 1 applic 07/20/20 10:00 07/21/20 21:11 Sodium Hypochlorite, Dakin's 1/2 Strength (0.25%) 473 Ml Topical Soln TP 1 applicatio BID CONNOR Administration Sodium Polystyrene Sulfonate 15 gm 07/03/20 11:19 07/05/20 10:36 Sodium Polystyrene 15 Gm/60 Ml Oral Liqd PO 15 gm Q6HR PRN Administration Hyperkalemia Zinc Sulfate 220 mg 06/17/20 22:00 07/21/20 21:12 Zinc Sulfate 220 Mg Cap PO 220 mg BID CONNOR Administration Nutrition/Malnutrition Assess - Dietary Evaluation Nutrition/Malnutrition Findings: Nutrition Notes Start: 06/18/20 10:28 Freq: Status: Active Protocol: Document 07/19/20 11:18 AL (Rec: 07/19/20 11:28 AL [id number]) Co-Sign 07/19/20 11:18 LP Nutrition Notes Initial or Follow up Reassessment Current Diagnosis Acute Kidney Injury,Sepsis, Respiratory Failure Other Pertinent Diagnosis COVID-19 (+), pneu Current Diet NPO Labs/Tests K 5.4 BUN 79 Cr 3.2 Pertinent Medications Propofol at 6.8 ml/hr (180 kcal) Height 6 ft Weight 153.3 kg [place] Body Weight (kg) 80.90 BMI 45.8 Weight change and time frame Wt change of 6.6 kg noted (4.7 %). Pt on HD Weight Status Obese Subjective/Other Information FU for stable TF. Per RN note, pt had GI bleed and TF was stopped on 07/14. This morning, RN restarted TF at 25 ml/hr and will incresase by 10 ml q8h. Percent of energy/protein needs met: 50%/29% Burn Absent Trauma Absent GI Symptoms Other Current % PO Negligible Minimum of two criteria No physical signs of malnutrition #2 Nutrition Diagnosis Overweight/obesity Diagnosis Progress(for reassessment Continues documentation) #1 Nutrition Diagnosis Inadequate oral intake Diagnosis Progress(for reassessment Continues documentation) Is patient on ventilator? Yes Is Patient Ambulatory and/or Out of Bed No REE-([facility]-confined to bed) 2849.316 Kcal/Kg value to use for calculation 14 Approximate Energy Requirements Using 2146 kcal/Kg Calculation Used for Recommendations Kcal/kg Additional Notes Protein needs up to >2 g/kg IBW: 162 g Fluid needs: 1,000 ml + output Nutrition Intervention Change Diet Order: TF Nutrition Support: Nepro 1.8 at 50 ml/hr Flush 215 ml q4h Kcal 2,160 Protein (gm) 97 Fluid (mL) 872 Goal #1 Tolerate TF at goal rate Goal #2 Meet energy and protein needs as best as possible. Anticipated Discharge Needs: Unable to determine at the time. Follow-Up By: 07/22/20 Additional Comments F/U for TF at goal rate and vent status
[2020-07-18 14:27] LABS: Band Neutrophils # (Manual) 0.9 K/mm3
[2020-07-18] MEDS: NORepinephrine/NS 4 MG-250 ML 4 MG/250 ML BAG IV SCH (15:35)
[2020-07-18] MEDS: AMIODARONE 900 MG in DEXTROSE 5% IN WATER 482 ML IV SCH (21:15)
[2020-07-19] MEDS: INSULIN REGULAR, HUMAN 100 UNITS/1 ML SUB-Q SCH ×5 (00:38→23:24)
[2020-07-19] MEDS: SIMPLE SYRUP 15 ML FEEDTUBE PRN (00:48)
[2020-07-19] MEDS: PIPERACIL/TAZOBACTA 4.5/NS 100 4.5 GM/100 ML VIAL IV SCH ×2 (01:28→14:50)
[2020-07-19] MEDS: fentaNYL DRIP Premix 2,000 MCG/100 ML BAG IV SCH ×5 (02:45→23:11)
--- NOTE | 2020-07-19 03:29 | XRay Report ---
CHEST 1 VIEW 07/19/2020 2:05 AM INDICATION / CLINICAL INFORMATION: f/u pneumomediastinum. COMPARISON: 07/17/2020. FINDINGS: SUPPORT DEVICES: Unchanged. HEART / MEDIASTINUM: Stable. LUNGS / PLEURA: Persistent bilateral opacity with overall mild worsening. Mild improving aeration rig ht base. Mild decreasing aeration left base. Tiny bilateral pneumothoraces. Left subcutaneous air is slightly increased. ADDITIONAL FINDINGS: No significant additional findings. IMPRESSION: 1. Overall mild worsening. 2. Tiny bilateral pneumothoraces. Increasing soft tissue air on the left. Signer Name: Jeremy Jarrett MD Signed: 07/19/2020 3:25 AM Workstation Name: [id number]
[2020-07-19] MEDS: SODIUM BICARBONATE 650 MG TAB PO SCH ×3 (07:36→20:15)
[2020-07-19] MEDS ORDERED: SODIUM CHLORIDE 0.9% 100 ML IV PRN ×2 (08:22→08:30)
[2020-07-19] MEDS: PANTOPRAZOLE 40 MG INJ IV SCH ×2 (09:13→21:56)
[2020-07-19 09:35] LABS: Hematocrit 22.8 % (35.5-45.6); Hemoglobin 7.8 gm/dl (11.8-15.2); Mean Corpuscular HGB Conc 34 % (32-34); Mean Corpuscular Volume 89 fl (84-94); Platelet Count 196 K/mm3 (140-440); Red Blood Count 2.57 M/mm3 (3.65-5.03); Red Cell Distribution Width 15.3 % (13.2-15.2)
[2020-07-19 09:58] LABS: Albumin 1.8 g/dL (3.9-5); Calcium 6.8 mg/dL (8.4-10.2)
[2020-07-19] MEDS ORDERED: ALTEPLASE 2 MG INJ IV ONE (10:02)
[2020-07-19] MEDS ORDERED: ALTEPLASE 2 MG INJ ONE (10:02)
[2020-07-19] MEDS: DOCUSATE SODIUM 100 MG/10 ML ORAL LIQD FEEDTUBE SCH ×2 (11:06→21:48)
[2020-07-19] MEDS: POLYETHYLENE GLYCOL 3350 17 GM POWDER PO SCH (11:06)
[2020-07-19] MEDS: ASCORBIC ACID 250 MG TAB PO SCH ×2 (11:06→21:56)
[2020-07-19] MEDS: CHOLECALCIFEROL (VIT D3) 1000 UNIT (25 mcg) TAB PO SCH (11:07)
[2020-07-19] MEDS: QUEtiapine 200 MG TAB PO SCH ×2 (11:07→21:56)
[2020-07-19] MEDS: ZINC SULFATE 220 MG CAP PO SCH ×2 (11:07→21:56)
--- NOTE | 2020-07-19 11:31 | Progress Note ---
Assessment and Plan Pt remains intubated and sedated, receiving blood transfusions for severe anemia. Telemetry reviewed: Sinus rhythm 75. Will convert IV Amiodarone. to PO Amiodarone. Continue to hold AC in setting of severe anemia. Electrolyte management per nephrology. Cont supportive management. Overall poor prognosis. The patient has been seen in conjunction with Dr. Adarsh Santos who agrees with the assessment and plan of care. - Patient Problems (1) Acute respiratory failure with hypoxia Current Visit: Yes Status: Acute (2) Sepsis Current Visit: Yes Status: Acute Qualifiers: Severe sepsis acute organ dysfunction type: acute respiratory failure Severe sepsis shock status: with septic shock (3) Atrial fibrillation with rapid ventricular response Current Visit: Yes Status: Acute (4) Acute renal failure Current Visit: Yes Status: Acute (5) Pneumonia due to COVID-19 virus Current Visit: Yes Status: Acute (6) Elevated LFTs Current Visit: Yes Status: Acute (7) Hyperkalemia Current Visit: Yes Status: Acute (8) Anemia Current Visit: Yes Status: Acute Subjective Date of service: 07/19/20 Principal diagnosis: ARF; Septic Shock; COVID-19 PNA; Atrial fibrillation; Obesity Interval history: Pt is lying in bed, intubated and sedated. Telemetry reviewed: Sinus rhythm, HR 75. Objective Last Vital Signs Temp 97.3 F L 07/19/20 08:00 Pulse 65 07/19/20 11:14 Resp 18 07/19/20 10:15 BP 116/46 07/19/20 11:14 Pulse Ox 99 07/19/20 11:14 - Physical Examination General: Other (intubated, sedated ) Neck: Positive: neck supple Cardiac: Positive: Reg Rate and Rhythm, S1/S2 Lungs: Positive: Ventilated Respirations Neuro: Positive: Other (intubated, lethargic) Abdomen: Positive: Unremarkable Skin: Negative: Rash, Wound Extremities: Present: upper extr. pulses, lower extr. pulses, +1 Edema - Labs and Meds Cardiac Enzymes 07/19/20 Range/Units 09:15 AST 54 H (5-40) units/L CBC 07/19/20 Range/Units 09:15 WBC 32.5 H (4.5-11.0) K/mm3 RBC 2.57 L (3.65-5.03) M/mm3 Hgb 7.8 L (11.8-15.2) gm/dl Hct 22.8 L (35.5-45.6) % Plt Count 196 (140-440) K/mm3 Comprehensive Metabolic Panel 07/19/20 Range/Units 09:15 Sodium 135 L (137-145) mmol/L Potassium 4.2 D (3.6-5.0) mmol/L Chloride 96.3 L (98-107) mmol/L Carbon Dioxide 25 (22-30) mmol/L BUN 61 H (9-20) mg/dL Creatinine 2.8 H (0.8-1.3) mg/dL Glucose 87 (75-100) mg/dL Calcium 6.8 L (8.4-10.2) mg/dL AST 54 H (5-40) units/L ALT 65 H (7-56) units/L Alkaline Phosphatase 116 (35-129) units/L Total Protein 4.3 L (6.3-8.2) g/dL Albumin 1.8 L (3.9-5) g/dL - Imaging and Cardiology EKG: report reviewed, image reviewed Echo: report reviewed (TDS, EF 55-60%. ) - Telemetry EKG Rhythm: Sinus Rhythm - EKG Sinus rhythms and dysrhythmias: sinus tachycardia - Allied health notes Allied health notes reviewed: nursing
[2020-07-19] MEDS ORDERED: ALBUTEROL 2.5 MG/3 ML NEBU IH PRN (12:15)
--- NOTE | 2020-07-19 13:45 | Progress Note ---
Assessment and Plan Cultures: SARS CoV2 PCR: Positive as outpatient 06/17/2020 blood culture: No growth 06/17/2020 sputum culture: No growth 07/15/2020 blood culture: No growth 07/15/2020 fungal blood culture: Enterococcus faecalis 07/15/2020 tracheal aspirate culture: Usual respiratory otf 07/18/2020 blood culture: In process A/P: 59-year-old male with obesity, obesity hypoventilation syndrome: #Severe sepsis with septic shock, ?also component of hemorrhagic shock #Enterococcus bacteremia: 07/15/2020 fungal blood culture: Growing Enterococcus. ?gut translocation. Interestingly other blood cultures from that day were negative. CT abdomen shows some colitis. If repeat blood cultures negative, will finish 14 days of abx. #Anemia, GI bleed: GI on board. #Critical COVID-19 pneumonia: s/p abx, steroids and remdesivir. #Acute hypoxic respiratory failure: on the vent. Also with pneumomediastinum, subcutaneous emphysema. #GIRISH: remains on HD per nephrology. Renally dose abx. Recs: -Continue IV Zosyn -f/u repeat blood cultures -unless repeat blood cultures turn positive, no need to remove/exchange lines -overall, very poor prognosis Tj Fajardo MD, FACP [facility] O: [phone] F: [phone] Subjective Date of service: 07/19/20 Principal diagnosis: ARF; Septic Shock; COVID-19 PNA; Atrial fibrillation; Obesity Interval history: Afebrile. Remains on the vent. Remains off pressors. Objective - Exam Narrative Exam: Physical Exam (reviewed in chart to minimize risk of transmission) Constitutional: deferred Head, Ears, Nose: deferred Eyes: deferred Neck: deferred Oral: deferred Cardiovascular: deferred Respiratory: deferred GI: deferred Musculoskeletal: deferred Skin: deferred Hem/Lymphatic: deferred Psych: deferred Neurological: deferred - Constitutional Vitals: Vital Signs Temp Pulse Resp BP Pulse Ox 97.3 F L 72 11 L 117/45 97 07/19/20 12:00 07/19/20 12:01 07/19/20 12:01 07/19/20 11:45 07/19/20 12:01 Temperature -Last 24 Hours Temperature 97.3 F Temperature 97.3 F Temperature 98.8 F Temperature 98.4 F Temperature 98.9 F Temperature 98.3 F Temperature 97.1 F Temperature 98.1 F - Labs CBC & Chem 7: 07/19/20 09:15 07/19/20 09:15 Labs: Abnormal lab results 07/19/20 07/19/20 07/19/20 Range/Units 00:06 03:57 05:22 WBC (4.5-11.0) K/mm3 RBC (3.65-5.03) M/mm3 Hgb (11.8-15.2) gm/dl Hct (35.5-45.6) % RDW (13.2-15.2) % ABG Hemoglobin 8.6 L (12.0-17.5) ABG Sodium 130.4 L (136.0-145.0) mmol/L Sodium (137-145) mmol/L Chloride (98-107) mmol/L BUN (9-20) mg/dL Creatinine (0.8-1.3) mg/dL POC Glucose 69 L 64 L (70-105) mg/dL Calcium (8.4-10.2) mg/dL AST (5-40) units/L ALT (7-56) units/L Total Protein (6.3-8.2) g/dL Albumin (3.9-5) g/dL Arterial Blood Ionized Calcium 3.9 L (4.6-5.3) mg/dL 07/19/20 07/19/20 Range/Units 09:15 09:15 WBC 32.5 H (4.5-11.0) K/mm3 RBC 2.57 L (3.65-5.03) M/mm3 Hgb 7.8 L (11.8-15.2) gm/dl Hct 22.8 L (35.5-45.6) % RDW 15.3 H (13.2-15.2) % ABG Hemoglobin (12.0-17.5) ABG Sodium (136.0-145.0) mmol/L Sodium 135 L (137-145) mmol/L Chloride 96.3 L (98-107) mmol/L BUN 61 H (9-20) mg/dL Creatinine 2.8 H (0.8-1.3) mg/dL POC Glucose (70-105) mg/dL Calcium 6.8 L (8.4-10.2) mg/dL AST 54 H (5-40) units/L ALT 65 H (7-56) units/L Total Protein 4.3 L (6.3-8.2) g/dL Albumin 1.8 L (3.9-5) g/dL Arterial Blood Ionized Calcium (4.6-5.3) mg/dL
--- NOTE | 2020-07-19 14:31 | Progress Note ---
Assessment and Plan Acute hypoxemic respiratory failure due to COVID-19 Severe COVID infection Severe Sepsis with shock Bilateral pneumonia Acute kidney injury (GIRISH) with acute tubular necrosis (ATN) Elevated liver enzymes Obesity - CT abd & pelvis revealed bibasilar consolidation and likely inflammatory colitis - now growing E. Faecalis and antibiotics de-escalated to monotherapy with Zosyn - no acute indication for line holiday and repeat BC's so far NGTD - continue bid protonix - tube feeds resumed and will advance to goal rate as tolerated - wean vasopressors for target MAP > 65 mmHg (off now) - continue to follow cultures - continue care as below otherwise; - therapeutic anticoagulation remains on hold - continue HD/UF per nephrology prescription for toxin and volume clearance - keep peep at 14 - continue daily SAT's & SBT's as tolerated - continue tube feeds and advance to goal rate as tolerated - continue HD/UF per nephrology team for toxin and volume clearance - continue bowel regimen - rate control per cardiology team for afib RVR - Continue to wean supplemental oxygen for O2 sats >92% - Monitor blood pressure closely while optimizing sedation,wean vasopressor support for MAP > 65 mmHg - Critical care prone positioning - VAP bundle addressed, aspiration precautions HOB >40 - continue lung protective strategies, permissive hypercapnic acceptable. - continue bronchodilators with pulmonary hygiene per RT - wean per pulmonary driven protocols otherwise - accuchecks with glycemic control per SSI (While critically ill target blood glucose of 140-180 mg/dL; avoid hypoglycemia) - sedation prn for target RASS -1 to -2 - continue enteral nutritional support at goal rate as tolerated - s/p antibiotics per ID recommendations - Monitor liver function test ,avoid hepatotoxic agents - azotemia per nephrology rec's - Avoid nephrotoxins, renally dose all medications, conservative fluid management - continue to avoid benzodiazepines, reduce the possibility of delirium, - prn analgesia per CPOT score - Maintenance of sleep-wake cycle, avoid delirium - Stress ulcer prophylaxis, Famotidine - PT/OT/ROM exercises - Mobility protocols for pressure ulcer prevention - CXR, ABG in am - CBC, CMP in am - Supportive transfusions to keep HgB >7g/dL - Monitor hemodynamics closely - continue other care per attending / other consultants COVID SPECIFIC INTERVENTIONS - s/p steroids: Dexamethasone - completed Remdesivir - monitor inflammatory markers prn - ferritin, D-dimer, CRP, LDH per facility protocol - continue anticoagulation per System Protocol based on d-dimer (on hold due to bleeding) - continue contact and airborne isolation CONDITION: CRITICAL PROGNOSIS: GUARDED CODE STATUS: FULL CODE The high probability of a clinically significant, sudden or life-threatening deterioration of the [respiratory, cardiovascular, hematologic & neurologic] system(s) required my full and direct attention, intervention and personal management. The aggregate critical care time was [34] minutes without overlap. Time includes spent on; [x] Data Review and interpretation [x] Patient assessment and monitoring of vital signs [x] Documentation [x] Medication orders and management He was evaluated in the context of the global COVID-19 pandemic, which necessitated consideration that the patient might be at risk for infection with the virus that causes COVID-19. Institutional protocols and algorithms that pertain to the evaluation of patients at risk for COVID-19 are in a state of rapid change based on information released by regulatory bodies including the CDC and federal and state organizations. These policies and algorithms were followed during the patient's care in the ICU Please note that these policies, procedures and recommendations changed on a rapid basis. Subjective Date of service: 07/19/20 Principal diagnosis: ARF; Septic Shock; COVID-19 PNA; Atrial fibrillation; Obesity Interval history: Patient is seen today for: Ac hypoxemic respiratory failure; COVID-19; Severe Sepsis with shock; Zackery. pneumonia; GIRISH; Elevated liver enzymes; Obesity Seen and examined at bedside; 24hour events reviewed; nursing and respiratory care staff consulted; no adverse overnight events reported to me; resting in bed; remains on MVS;tentatively for dialysis this am but vascath clogged and cathflo administered; oxygenation improving; no gross bleeding; leucocytosis better; no emesis or overt aspiration Objective Vital Signs - 12hr 07/19/20 07/19/20 07/19/20 02:45 03:00 03:15 Temperature Pulse Rate 70 67 70 Pulse Rate [ From Monitor] Respiratory 15 18 18 Rate Blood Pressure 129/60 121/58 128/57 O2 Sat by Pulse 99 99 100 Oximetry 07/19/20 07/19/20 07/19/20 03:30 03:34 03:45 Temperature 98.8 F Pulse Rate 69 70 Pulse Rate [ From Monitor] Respiratory 11 L 20 Rate Blood Pressure 123/59 120/59 O2 Sat by Pulse 98 99 Oximetry 0307/19/20 07/19/20 04:00 04:01 04:15 Temperature Pulse Rate 70 76 70 Pulse Rate [ 124 H From Monitor] Respiratory 22 10 L 14 Rate Blood Pressure 130/63 126/59 O2 Sat by Pulse 100 96 99 Oximetry 07/19/20 07/19/20 07/19/20 04:30 04:45 05:01 Temperature Pulse Rate 74 67 65 Pulse Rate [ From Monitor] Respiratory 11 L 28 H 25 H Rate Blood Pressure 124/58 131/57 110/46 O2 Sat by Pulse 97 99 99 Oximetry 07/19/20 07/19/20 07/19/20 05:15 05:20 05:31 Temperature Pulse Rate 72 72 Pulse Rate [ From Monitor] Respiratory 21 13 Rate Blood Pressure 110/46 110/46 O2 Sat by Pulse 100 99 Oximetry 07/19/20 07/19/20 07/19/20 05:45 06:01 06:15 Temperature Pulse Rate 65 72 67 Pulse Rate [ From Monitor] Respiratory 25 H 15 27 H Rate Blood Pressure 101/42 100/52 115/50 O2 Sat by Pulse 100 100 100 Oximetry 07/19/20 07/19/20 07/19/20 06:30 06:45 07:01 Temperature Pulse Rate 68 75 74 Pulse Rate [ From Monitor] Respiratory 31 H 26 H 19 Rate Blood Pressure 109/49 113/49 106/49 O2 Sat by Pulse 100 86 100 Oximetry 07/19/20 07/19/20 07/19/20 07:15 07:31 07:45 Temperature Pulse Rate 70 71 67 Pulse Rate [ From Monitor] Respiratory 18 25 H 26 H Rate Blood Pressure 105/45 113/50 117/51 O2 Sat by Pulse 100 100 100 Oximetry 07/19/20 07/19/20 07/19/20 08:00 08:01 08:15 Temperature 97.3 F L Pulse Rate 65 74 65 Pulse Rate [ 68 From Monitor] Respiratory 24 10 L 28 H Rate Blood Pressure 117/53 117/53 113/46 O2 Sat by Pulse 100 100 96 Oximetry 07/19/20 07/19/20 07/19/20 08:31 08:45 09:00 Temperature Pulse Rate 67 76 68 Pulse Rate [ From Monitor] Respiratory 25 H 9 L 26 H Rate Blood Pressure 105/42 99/57 94/52 O2 Sat by Pulse 99 97 96 Oximetry 07/19/20 07/19/20 07/19/20 09:15 09:30 09:45 Temperature Pulse Rate 71 70 66 Pulse Rate [ From Monitor] Respiratory 26 H 26 H 25 H Rate Blood Pressure 94/52 115/52 111/47 O2 Sat by Pulse 96 97 97 Oximetry 07/19/20 07/19/20 07/19/20 10:00 10:15 10:31 Temperature Pulse Rate 64 70 72 Pulse Rate [ From Monitor] Respiratory 25 H 18 19 Rate Blood Pressure 105/43 116/50 118/56 O2 Sat by Pulse 97 96 97 Oximetry 07/19/20 07/19/20 07/19/20 10:45 11:01 11:14 Temperature Pulse Rate 66 72 65 Pulse Rate [ From Monitor] Respiratory 26 H 12 Rate Blood Pressure 118/51 116/59 116/46 O2 Sat by Pulse 97 97 99 Oximetry 07/19/20 07/19/20 07/19/20 11:15 11:31 11:45 Temperature Pulse Rate 66 71 72 Pulse Rate [ From Monitor] Respiratory 25 H 27 H 11 L Rate Blood Pressure 116/46 116/47 117/45 O2 Sat by Pulse 98 98 97 Oximetry 07/19/20 07/19/20 12:00 12:01 Temperature 97.3 F L Pulse Rate 66 72 Pulse Rate [ 66 From Monitor] Respiratory 20 11 L Rate Blood Pressure O2 Sat by Pulse 100 97 Oximetry Constitutional: appears uncomfortable, other (morbidly obese, atraumatic, normocephalic, mild resp distress, orally intubated) Eyes: non-icteric ENT: oropharynx dry, other (ETT 24 cm TROY + blood crusted lips) Neck: supple, no lymphadenopathy, other (Large , short neck) Effort: mildly labored Ascultation: Bilateral: diminished breath sounds, rhonchi (scant) Percussion: Bilateral: not dull Cardiovascular: irregular rhythm, other (S1,S2) Gastrointestinal: normoactive bowel sounds, soft, non-tender, non-distended (protuberant), other (lizeth-rectal tube slow oozing) Integumentary: rash, other (Femoral CVC, Newell catheter) Extremities: pink and warm, pulses normal, no ischemia or petechiae, edema (trace to 1+) Neurologic: non-focal exam (grossly), pupils equal and round, CN II-XII normal, other (unable to assess, sedated) Psychiatric: other (unable to assess, sedated) CBC and BMP: 07/20/20 06:07 07/19/20 09:15 ABG, PT/INR, D-dimer: ABG ABG pH 7.374 (7.320-7.450) 07/19/20 03:57 POC ABG pCO2 40.3 mmHg (32.0-48.0) 07/19/20 03:57 ABG pCO2 56.4 mm Hg 07/05/20 04:30 POC ABG pO2 85.8 mmHg (83-108) 07/19/20 03:57 ABG pO2 151.9 mm Hg (80.0-90.0) H 07/05/20 04:30 POC ABG HCO3 23 07/19/20 03:57 ABG O2 Saturation 98.7 % (95.0-99.0) 07/05/20 04:30 PT/INR, D-dimer PT 18.2 Sec. (12.2-14.9) H 07/17/20 15:25 INR 1.52 (0.87-1.13) H 07/17/20 15:25 D-Dimer 6608.00 ng/mlDDU (0-234) H 07/03/20 14:50 Abnormal lab findings: Abnormal Labs 06/17/20 06/17/20 06/17/20 12:33 12:33 12:33 WBC 19.5 H RBC 5.18 H Hgb 15.5 H Hct MCHC RDW Lymph % (Auto) 3.8 L [place] % (Auto) Lymph # (Auto) 0.7 L [place] # (Auto) Eos # (Auto) Seg Neutrophils % Seg Neuts % (Manual) 99.0 H Lymphocytes % (Manual) 1.0 L Monocytes % (Manual) Nucleated RBC % Seg Neutrophils # 18.2 H Seg Neutrophils # Man 19.3 H Lymphocytes # (Manual) 0.2 L Monocytes # (Manual) Eosinophils # (Manual) PT 16.5 H INR 1.33 H APTT D-Dimer 1025.04 H Heparin Anti-Xa Level ABG pH POC ABG pCO2 POC ABG pO2 ABG pO2 ABG HCO3 ABG Hemoglobin ABG Oxyhemoglobin ABG Sodium ABG Potassium ABG Chloride ABG Glucose Carboxyhemoglobin Sodium 130 L Potassium 3.4 L Chloride 95.0 L Carbon Dioxide BUN 21 H Creatinine Glucose 137 H POC Glucose Lactic Acid Calcium 7.9 L Phosphorus Magnesium Ferritin Direct Bilirubin AST 84 H ALT 67 H Alkaline Phosphatase Lactate Dehydrogenase 437 H Total Creatine Kinase 310 H C-Reactive Protein 27.90 H Total Protein Albumin 2.9 L Triglycerides Arterial Blood Glucose Arterial Blood Ionized Calcium Urine Creatinine Urine Chloride Vancomycin Trough Coronavirus (PCR) Crossmatch 06/17/20 06/17/20 06/17/20 12:33 12:33 14:48 WBC RBC Hgb Hct MCHC RDW Lymph % (Auto) [place] % (Auto) Lymph # (Auto) [place] # (Auto) Eos # (Auto) Seg Neutrophils % Seg Neuts % (Manual) Lymphocytes % (Manual) Monocytes % (Manual) Nucleated RBC % Seg Neutrophils # Seg Neutrophils # Man Lymphocytes # (Manual) Monocytes # (Manual) Eosinophils # (Manual) PT INR APTT D-Dimer Heparin Anti-Xa Level ABG pH POC ABG pCO2 POC ABG pO2 ABG pO2 ABG HCO3 ABG Hemoglobin ABG Oxyhemoglobin ABG Sodium ABG Potassium ABG Chloride ABG Glucose Carboxyhemoglobin Sodium Potassium Chloride Carbon Dioxide BUN Creatinine Glucose POC Glucose Lactic Acid 2.50 H* 2.20 H* Calcium Phosphorus Magnesium Ferritin 2297.0 H Direct Bilirubin AST ALT Alkaline Phosphatase Lactate Dehydrogenase Total Creatine Kinase C-Reactive Protein Total Protein Albumin Triglycerides Arterial Blood Glucose Arterial Blood Ionized Calcium Urine Creatinine Urine Chloride Vancomycin Trough Coronavirus (PCR) Crossmatch 06/17/20 06/17/20 06/17/20 14:48 14:48 14:48 WBC RBC Hgb Hct MCHC RDW Lymph % (Auto) [place] % (Auto) Lymph # (Auto) [place] # (Auto) Eos # (Auto) Seg Neutrophils % Seg Neuts % (Manual) Lymphocytes % (Manual) Monocytes % (Manual) Nucleated RBC % Seg Neutrophils # Seg Neutrophils # Man Lymphocytes # (Manual) Monocytes # (Manual) Eosinophils # (Manual) PT INR APTT D-Dimer 939.89 H Heparin Anti-Xa Level ABG pH POC ABG pCO2 POC ABG pO2 ABG pO2 ABG HCO3 ABG Hemoglobin ABG Oxyhemoglobin ABG Sodium ABG Potassium ABG Chloride ABG Glucose Carboxyhemoglobin Sodium Potassium Chloride Carbon Dioxide BUN Creatinine Glucose 141 H POC Glucose Lactic Acid Calcium Phosphorus Magnesium Ferritin > 2000.0 H Direct Bilirubin AST ALT Alkaline Phosphatase Lactate Dehydrogenase 503 H Total Creatine Kinase C-Reactive Protein 24.70 H Total Protein Albumin Triglycerides Arterial Blood Glucose Arterial Blood Ionized Calcium Urine Creatinine Urine Chloride Vancomycin Trough Coronavirus (PCR) Crossmatch 06/17/20 06/17/20 06/17/20 16:54 19:39 23:43 WBC RBC Hgb Hct MCHC RDW Lymph % (Auto) [place] % (Auto) Lymph # (Auto) [place] # (Auto) Eos # (Auto) Seg Neutrophils % Seg Neuts % (Manual) Lymphocytes % (Manual) Monocytes % (Manual) Nucleated RBC % Seg Neutrophils # Seg Neutrophils # Man Lymphocytes # (Manual) Monocytes # (Manual) Eosinophils # (Manual) PT INR APTT D-Dimer Heparin Anti-Xa Level ABG pH 7.571 H POC ABG pCO2 24.3 L POC ABG pO2 41.6 L ABG pO2 ABG HCO3 ABG Hemoglobin ABG Oxyhemoglobin 84.0 L ABG Sodium 131.0 L ABG Potassium ABG Chloride ABG Glucose 163 H Carboxyhemoglobin Sodium Potassium Chloride Carbon Dioxide BUN Creatinine Glucose POC Glucose 185 H Lactic Acid 2.10 H* Calcium Phosphorus Magnesium Ferritin Direct Bilirubin AST ALT Alkaline Phosphatase Lactate Dehydrogenase Total Creatine Kinase C-Reactive Protein Total Protein Albumin Triglycerides Arterial Blood Glucose 163 H Arterial Blood Ionized Calcium 4.4 L Urine Creatinine Urine Chloride Vancomycin Trough Coronavirus (PCR) Crossmatch 06/18/20 06/18/20 06/18/20 00:17 00:23 03:55 WBC RBC Hgb Hct MCHC RDW Lymph % (Auto) [place] % (Auto) Lymph # (Auto) [place] # (Auto) Eos # (Auto) Seg Neutrophils % Seg Neuts % (Manual) Lymphocytes % (Manual) Monocytes % (Manual) Nucleated RBC % Seg Neutrophils # Seg Neutrophils # Man Lymphocytes # (Manual) Monocytes # (Manual) Eosinophils # (Manual) PT INR APTT D-Dimer Heparin Anti-Xa Level ABG pH POC ABG pCO2 POC ABG pO2 56.5 L 48.3 L ABG pO2 ABG HCO3 ABG Hemoglobin ABG Oxyhemoglobin 86.3 L 81.7 L ABG Sodium 132.9 L 131.0 L ABG Potassium ABG Chloride ABG Glucose 189 H 161 H Carboxyhemoglobin 0.4 L Sodium Potassium Chloride Carbon Dioxide BUN Creatinine Glucose POC Glucose Lactic Acid 3.80 H* Calcium Phosphorus Magnesium Ferritin Direct Bilirubin AST ALT Alkaline Phosphatase Lactate Dehydrogenase Total Creatine Kinase C-Reactive Protein Total Protein Albumin Triglycerides Arterial Blood Glucose 189 H 161 H Arterial Blood Ionized Calcium 4.3 L 4.2 L Urine Creatinine Urine Chloride Vancomycin Trough Coronavirus (PCR) Crossmatch 06/18/20 06/18/20 06/18/20 05:39 05:39 05:39 WBC 26.2 H RBC Hgb Hct MCHC RDW Lymph % (Auto) [place] % (Auto) Lymph # (Auto) [place] # (Auto) Eos # (Auto) Seg Neutrophils % Seg Neuts % (Manual) 90.0 H Lymphocytes % (Manual) 5.0 L Monocytes % (Manual) Nucleated RBC % Seg Neutrophils # Seg Neutrophils # Man 23.6 H Lymphocytes # (Manual) Monocytes # (Manual) 1.3 H Eosinophils # (Manual) PT INR APTT D-Dimer Heparin Anti-Xa Level ABG pH POC ABG pCO2 POC ABG pO2 ABG pO2 ABG HCO3 ABG Hemoglobin ABG Oxyhemoglobin ABG Sodium ABG Potassium ABG Chloride ABG Glucose Carboxyhemoglobin Sodium 135 L Potassium Chloride 97.5 L Carbon Dioxide 21 L BUN 39 H Creatinine 1.7 H D Glucose 168 H POC Glucose Lactic Acid 3.40 H* Calcium 7.2 L Phosphorus Magnesium Ferritin Direct Bilirubin AST ALT Alkaline Phosphatase Lactate Dehydrogenase Total Creatine Kinase C-Reactive Protein Total Protein Albumin Triglycerides Arterial Blood Glucose Arterial Blood Ionized Calcium Urine Creatinine Urine Chloride Vancomycin Trough Coronavirus (PCR) Crossmatch 06/18/20 06/18/20 06/18/20 07:24 09:00 10:10 WBC RBC Hgb Hct MCHC RDW Lymph % (Auto) [place] % (Auto) Lymph # (Auto) [place] # (Auto) Eos # (Auto) Seg Neutrophils % Seg Neuts % (Manual) Lymphocytes % (Manual) Monocytes % (Manual) Nucleated RBC % Seg Neutrophils # Seg Neutrophils # Man Lymphocytes # (Manual) Monocytes # (Manual) Eosinophils # (Manual) PT INR APTT D-Dimer Heparin Anti-Xa Level ABG pH POC ABG pCO2 POC ABG pO2 ABG pO2 ABG HCO3 ABG Hemoglobin ABG Oxyhemoglobin ABG Sodium ABG Potassium ABG Chloride ABG Glucose Carboxyhemoglobin Sodium Potassium Chloride Carbon Dioxide BUN Creatinine Glucose POC Glucose Lactic Acid 2.90 H* 3.20 H* Calcium Phosphorus Magnesium Ferritin Direct Bilirubin AST ALT Alkaline Phosphatase Lactate Dehydrogenase Total Creatine Kinase C-Reactive Protein Total Protein Albumin Triglycerides Arterial Blood Glucose Arterial Blood Ionized Calcium Urine Creatinine Urine Chloride Vancomycin Trough Coronavirus (PCR) Positive A Crossmatch 06/18/20 06/18/20 06/18/20 11:58 14:43 15:00 WBC RBC Hgb Hct MCHC RDW Lymph % (Auto) [place] % (Auto) Lymph # (Auto) [place] # (Auto) Eos # (Auto) Seg Neutrophils % Seg Neuts % (Manual) Lymphocytes % (Manual) Monocytes % (Manual) Nucleated RBC % Seg Neutrophils # Seg Neutrophils # Man Lymphocytes # (Manual) Monocytes # (Manual) Eosinophils # (Manual) PT INR APTT D-Dimer Heparin Anti-Xa Level ABG pH 7.303 L POC ABG pCO2 POC ABG pO2 82.3 L ABG pO2 ABG HCO3 ABG Hemoglobin ABG Oxyhemoglobin ABG Sodium 135.3 L ABG Potassium ABG Chloride ABG Glucose 215 H Carboxyhemoglobin 0.3 L Sodium Potassium Chloride Carbon Dioxide BUN Creatinine Glucose POC Glucose 209 H Lactic Acid Calcium Phosphorus Magnesium Ferritin Direct Bilirubin AST ALT Alkaline Phosphatase Lactate Dehydrogenase Total Creatine Kinase C-Reactive Protein Total Protein Albumin Triglycerides Arterial Blood Glucose 215 H Arterial Blood Ionized Calcium 4.2 L Urine Creatinine 192.4 H Urine Chloride 31.1 L Vancomycin Trough Coronavirus (PCR) Crossmatch 06/18/20 06/18/20 06/18/20 17:16 19:44 20:33 WBC RBC Hgb Hct MCHC RDW Lymph % (Auto) [place] % (Auto) Lymph # (Auto) [place] # (Auto) Eos # (Auto) Seg Neutrophils % Seg Neuts % (Manual) Lymphocytes % (Manual) Monocytes % (Manual) Nucleated RBC % Seg Neutrophils # Seg Neutrophils # Man Lymphocytes # (Manual) Monocytes # (Manual) Eosinophils # (Manual) PT INR APTT D-Dimer Heparin Anti-Xa Level ABG pH POC ABG pCO2 POC ABG pO2 ABG pO2 ABG HCO3 ABG Hemoglobin ABG Oxyhemoglobin ABG Sodium ABG Potassium ABG Chloride ABG Glucose Carboxyhemoglobin Sodium Potassium Chloride Carbon Dioxide BUN Creatinine Glucose POC Glucose 182 H Lactic Acid 3.00 H* Calcium Phosphorus Magnesium 2.70 H Ferritin Direct Bilirubin AST ALT Alkaline Phosphatase Lactate Dehydrogenase Total Creatine Kinase C-Reactive Protein Total Protein Albumin Triglycerides Arterial Blood Glucose Arterial Blood Ionized Calcium Urine Creatinine Urine Chloride Vancomycin Trough Coronavirus (PCR) Crossmatch 06/18/20 06/19/20 06/19/20 23:43 04:00 04:00 WBC 31.6 H RBC Hgb Hct MCHC RDW Lymph % (Auto) [place] % (Auto) Lymph # (Auto) [place] # (Auto) Eos # (Auto) Seg Neutrophils % Seg Neuts % (Manual) 98.0 H Lymphocytes % (Manual) 0.5 L Monocytes % (Manual) Nucleated RBC % Seg Neutrophils # Seg Neutrophils # Man 31.0 H Lymphocytes # (Manual) 0.2 L Monocytes # (Manual) Eosinophils # (Manual) PT INR APTT D-Dimer Heparin Anti-Xa Level ABG pH POC ABG pCO2 POC ABG pO2 ABG pO2 ABG HCO3 ABG Hemoglobin ABG Oxyhemoglobin ABG Sodium ABG Potassium ABG Chloride ABG Glucose Carboxyhemoglobin Sodium Potassium Chloride Carbon Dioxide BUN 56 H Creatinine 1.6 H Glucose 176 H POC Glucose 149 H Lactic Acid Calcium 7.0 L Phosphorus Magnesium Ferritin Direct Bilirubin AST 244 H ALT 159 H Alkaline Phosphatase Lactate Dehydrogenase Total Creatine Kinase C-Reactive Protein Total Protein 4.9 L D Albumin 2.5 L Triglycerides Arterial Blood Glucose Arterial Blood Ionized Calcium Urine Creatinine Urine Chloride Vancomycin Trough Coronavirus (PCR) Crossmatch 06/19/20 06/19/20 06/19/20 04:00 05:44 11:42 WBC RBC Hgb Hct MCHC RDW Lymph % (Auto) [place] % (Auto) Lymph # (Auto) [place] # (Auto) Eos # (Auto) Seg Neutrophils % Seg Neuts % (Manual) Lymphocytes % (Manual) Monocytes % (Manual) Nucleated RBC % Seg Neutrophils # Seg Neutrophils # Man Lymphocytes # (Manual) Monocytes # (Manual) Eosinophils # (Manual) PT INR APTT D-Dimer Heparin Anti-Xa Level ABG pH 7.265 L POC ABG pCO2 51.8 H POC ABG pO2 65.1 L ABG pO2 ABG HCO3 ABG Hemoglobin ABG Oxyhemoglobin ABG Sodium ABG Potassium ABG Chloride ABG Glucose 184 H Carboxyhemoglobin Sodium Potassium Chloride Carbon Dioxide BUN Creatinine Glucose POC Glucose 156 H 191 H Lactic Acid Calcium Phosphorus Magnesium Ferritin Direct Bilirubin AST ALT Alkaline Phosphatase Lactate Dehydrogenase Total Creatine Kinase C-Reactive Protein Total Protein Albumin Triglycerides Arterial Blood Glucose 184 H Arterial Blood Ionized Calcium 4.3 L Urine Creatinine Urine Chloride Vancomycin Trough Coronavirus (PCR) Crossmatch 06/19/20 06/19/2006/19/21 12:30 17:16 18:36 WBC RBC Hgb Hct MCHC RDW Lymph % (Auto) [place] % (Auto) Lymph # (Auto) [place] # (Auto) Eos # (Auto) Seg Neutrophils % Seg Neuts % (Manual) Lymphocytes % (Manual) Monocytes % (Manual) Nucleated RBC % Seg Neutrophils # Seg Neutrophils # Man Lymphocytes # (Manual) Monocytes # (Manual) Eosinophils # (Manual) PT 16.4 H INR 1.32 H APTT D-Dimer Heparin Anti-Xa Level ABG pH 7.088 L POC ABG pCO2 78.1 H POC ABG pO2 208.3 H ABG pO2 ABG HCO3 ABG Hemoglobin ABG Oxyhemoglobin 98.3 H ABG Sodium ABG Potassium 5.0 H ABG Chloride ABG Glucose 182 H Carboxyhemoglobin 0.4 L Sodium Potassium Chloride Carbon Dioxide BUN Creatinine Glucose POC Glucose 154 H Lactic Acid Calcium Phosphorus Magnesium Ferritin Direct Bilirubin AST ALT Alkaline Phosphatase Lactate Dehydrogenase Total Creatine Kinase C-Reactive Protein Total Protein Albumin Triglycerides Arterial Blood Glucose 182 H Arterial Blood Ionized Calcium 4.3 L Urine Creatinine Urine Chloride Vancomycin Trough Coronavirus (PCR) Crossmatch 06/19/20 06/20/20 06/20/20 23:32 03:00 05:19 WBC RBC Hgb Hct MCHC RDW Lymph % (Auto) [place] % (Auto) Lymph # (Auto) [place] # (Auto) Eos # (Auto) Seg Neutrophils % Seg Neuts % (Manual) Lymphocytes % (Manual) Monocytes % (Manual) Nucleated RBC % Seg Neutrophils # Seg Neutrophils # Man Lymphocytes # (Manual) Monocytes # (Manual) Eosinophils # (Manual) PT INR APTT D-Dimer Heparin Anti-Xa Level 0.77 H ABG pH POC ABG pCO2 POC ABG pO2 ABG pO2 ABG HCO3 ABG Hemoglobin ABG Oxyhemoglobin ABG Sodium ABG Potassium ABG Chloride ABG Glucose Carboxyhemoglobin Sodium Potassium Chloride Carbon Dioxide BUN Creatinine Glucose POC Glucose 201 H 190 H Lactic Acid Calcium Phosphorus Magnesium Ferritin Direct Bilirubin AST ALT Alkaline Phosphatase Lactate Dehydrogenase Total Creatine Kinase C-Reactive Protein Total Protein Albumin Triglycerides Arterial Blood Glucose Arterial Blood Ionized Calcium Urine Creatinine Urine Chloride Vancomycin Trough Coronavirus (PCR) Crossmatch 06/20/20 06/20/20 06/20/20 08:25 08:25 11:36 WBC RBC Hgb Hct MCHC RDW Lymph % (Auto) [place] % (Auto) Lymph # (Auto) [place] # (Auto) Eos # (Auto) Seg Neutrophils % Seg Neuts % (Manual) Lymphocytes % (Manual) Monocytes % (Manual) Nucleated RBC % Seg Neutrophils # Seg Neutrophils # Man Lymphocytes # (Manual) Monocytes # (Manual) Eosinophils # (Manual) PT INR APTT D-Dimer Heparin Anti-Xa Level ABG pH POC ABG pCO2 POC ABG pO2 ABG pO2 ABG HCO3 ABG Hemoglobin ABG Oxyhemoglobin ABG Sodium ABG Potassium ABG Chloride ABG Glucose Carboxyhemoglobin Sodium 135 L Potassium 5.4 H Chloride 109.2 H Carbon Dioxide 19 L BUN 68 H Creatinine 2.5 H D Glucose 201 H POC Glucose 184 H Lactic Acid Calcium 5.5 L* D Phosphorus Magnesium Ferritin Direct Bilirubin AST 123 H ALT 86 H Alkaline Phosphatase Lactate Dehydrogenase Total Creatine Kinase C-Reactive Protein Total Protein 4.6 L Albumin 1.5 L Triglycerides Arterial Blood Glucose Arterial Blood Ionized Calcium Urine Creatinine Urine Chloride Vancomycin Trough 22.7 H Coronavirus (PCR) Crossmatch 06/20/20 06/20/20 06/20/20 11:40 17:28 20:00 WBC RBC Hgb Hct MCHC RDW Lymph % (Auto) [place] % (Auto) Lymph # (Auto) [place] # (Auto) Eos # (Auto) Seg Neutrophils % Seg Neuts % (Manual) Lymphocytes % (Manual) Monocytes % (Manual) Nucleated RBC % Seg Neutrophils # Seg Neutrophils # Man Lymphocytes # (Manual) Monocytes # (Manual) Eosinophils # (Manual) PT INR APTT D-Dimer Heparin Anti-Xa Level 0.89 H ABG pH 7.099 L POC ABG pCO2 61.1 H POC ABG pO2 ABG pO2 ABG HCO3 ABG Hemoglobin ABG Oxyhemoglobin ABG Sodium ABG Potassium 5.0 H ABG Chloride 111.0 H ABG Glucose 200 H Carboxyhemoglobin 0.4 L Sodium Potassium Chloride Carbon Dioxide BUN Creatinine Glucose POC Glucose 165 H Lactic Acid Calcium Phosphorus Magnesium Ferritin Direct Bilirubin AST ALT Alkaline Phosphatase Lactate Dehydrogenase Total Creatine Kinase C-Reactive Protein Total Protein Albumin Triglycerides Arterial Blood Glucose 200 H Arterial Blood Ionized Calcium 4.2 L Urine Creatinine Urine Chloride Vancomycin Trough Coronavirus (PCR) Crossmatch 06/20/20 06/21/20 06/21/20 23:29 05:00 05:20 WBC RBC Hgb Hct MCHC RDW Lymph % (Auto) [place] % (Auto) Lymph # (Auto) [place] # (Auto) Eos # (Auto) Seg Neutrophils % Seg Neuts % (Manual) Lymphocytes % (Manual) Monocytes % (Manual) Nucleated RBC % Seg Neutrophils # Seg Neutrophils # Man Lymphocytes # (Manual) Monocytes # (Manual) Eosinophils # (Manual) PT INR APTT D-Dimer Heparin Anti-Xa Level ABG pH POC ABG pCO2 POC ABG pO2 ABG pO2 ABG HCO3 ABG Hemoglobin ABG Oxyhemoglobin ABG Sodium ABG Potassium ABG Chloride ABG Glucose Carboxyhemoglobin Sodium Potassium Chloride 112.0 H Carbon Dioxide 20 L BUN 92 H Creatinine 3.9 H D Glucose 214 H POC Glucose 145 H 191 H Lactic Acid Calcium 6.5 L D Phosphorus Magnesium Ferritin Direct Bilirubin AST 98 H ALT 84 H Alkaline Phosphatase Lactate Dehydrogenase Total Creatine Kinase C-Reactive Protein Total Protein 4.6 L Albumin 2.1 L Triglycerides 180 H Arterial Blood Glucose Arterial Blood Ionized Calcium Urine Creatinine Urine Chloride Vancomycin Trough Coronavirus (PCR) Crossmatch 06/21/20 06/21/20 06/21/20 08:56 11:12 12:43 WBC RBC Hgb Hct MCHC RDW Lymph % (Auto) [place] % (Auto) Lymph # (Auto) [place] # (Auto) Eos # (Auto) Seg Neutrophils % Seg Neuts % (Manual) Lymphocytes % (Manual) Monocytes % (Manual) Nucleated RBC % Seg Neutrophils # Seg Neutrophils # Man Lymphocytes # (Manual) Monocytes # (Manual) Eosinophils # (Manual) PT INR APTT D-Dimer Heparin Anti-Xa Level 0.28 L ABG pH 7.184 L POC ABG pCO2 48.3 H POC ABG pO2 172.1 H ABG pO2 ABG HCO3 ABG Hemoglobin ABG Oxyhemoglobin 98.7 H ABG Sodium ABG Potassium 4.9 H ABG Chloride 112.0 H ABG Glucose 196 H Carboxyhemoglobin 0.2 L Sodium Potassium Chloride Carbon Dioxide BUN Creatinine Glucose POC Glucose 177 H Lactic Acid Calcium Phosphorus Magnesium Ferritin Direct Bilirubin AST ALT Alkaline Phosphatase Lactate Dehydrogenase Total Creatine Kinase C-Reactive Protein Total Protein Albumin Triglycerides Arterial Blood Glucose 196 H Arterial Blood Ionized Calcium 4.1 L Urine Creatinine Urine Chloride Vancomycin Trough Coronavirus (PCR) Crossmatch 06/21/20 06/21/20 06/22/20 16:31 Unknown 00:12 WBC RBC Hgb Hct MCHC RDW Lymph % (Auto) [place] % (Auto) Lymph # (Auto) [place] # (Auto) Eos # (Auto) Seg Neutrophils % Seg Neuts % (Manual) Lymphocytes % (Manual) Monocytes % (Manual) Nucleated RBC % Seg Neutrophils # Seg Neutrophils # Man Lymphocytes # (Manual) Monocytes # (Manual) Eosinophils # (Manual) PT INR APTT D-Dimer Heparin Anti-Xa Level 0.78 H ABG pH POC ABG pCO2 POC ABG pO2 ABG pO2 ABG HCO3 ABG Hemoglobin ABG Oxyhemoglobin ABG Sodium ABG Potassium ABG Chloride ABG Glucose Carboxyhemoglobin Sodium Potassium Chloride Carbon Dioxide BUN Creatinine Glucose POC Glucose 150 H 173 H Lactic Acid Calcium Phosphorus Magnesium Ferritin Direct Bilirubin AST ALT Alkaline Phosphatase Lactate Dehydrogenase Total Creatine Kinase C-Reactive Protein Total Protein Albumin Triglycerides Arterial Blood Glucose Arterial Blood Ionized Calcium Urine Creatinine Urine Chloride Vancomycin Trough Coronavirus (PCR) Crossmatch 06/22/20 06/22/20 06/22/20 04:00 05:04 05:30 WBC 33.9 H RBC Hgb 11.7 L Hct 35.2 L MCHC RDW 15.8 H Lymph % (Auto) [place] % (Auto) Lymph # (Auto) [place] # (Auto) Eos # (Auto) Seg Neutrophils % Seg Neuts % (Manual) 93.0 H Lymphocytes % (Manual) 5.0 L Monocytes % (Manual) Nucleated RBC % Seg Neutrophils # Seg Neutrophils # Man 31.5 H Lymphocytes # (Manual) Monocytes # (Manual) Eosinophils # (Manual) PT INR APTT D-Dimer Heparin Anti-Xa Level ABG pH 7.169 L POC ABG pCO2 POC ABG pO2 ABG pO2 ABG HCO3 ABG Hemoglobin ABG Oxyhemoglobin ABG Sodium ABG Potassium 5.1 H ABG Chloride 112.0 H ABG Glucose 186 H Carboxyhemoglobin 0.3 L Sodium Potassium Chloride Carbon Dioxide BUN Creatinine Glucose POC Glucose 161 H Lactic Acid Calcium Phosphorus Magnesium Ferritin Direct Bilirubin AST ALT Alkaline Phosphatase Lactate Dehydrogenase Total Creatine Kinase C-Reactive Protein Total Protein Albumin Triglycerides Arterial Blood Glucose 186 H Arterial Blood Ionized Calcium 4.1 L Urine Creatinine Urine Chloride Vancomycin Trough Coronavirus (PCR) Crossmatch 06/22/20 06/22/20 06/22/20 05:30 11:39 13:27 WBC RBC Hgb Hct MCHC RDW Lymph % (Auto) [place] % (Auto) Lymph # (Auto) [place] # (Auto) Eos # (Auto) Seg Neutrophils % Seg Neuts % (Manual) Lymphocytes % (Manual) Monocytes % (Manual) Nucleated RBC % Seg Neutrophils # Seg Neutrophils # Man Lymphocytes # (Manual) Monocytes # (Manual) Eosinophils # (Manual) PT INR APTT D-Dimer Heparin Anti-Xa Level ABG pH POC ABG pCO2 POC ABG pO2 ABG pO2 ABG HCO3 ABG Hemoglobin ABG Oxyhemoglobin ABG Sodium ABG Potassium ABG Chloride ABG Glucose Carboxyhemoglobin Sodium Potassium 5.7 H Chloride 111.3 H Carbon Dioxide 18 L BUN 112 H Creatinine 5.0 H Glucose 173 H POC Glucose 172 H 176 H Lactic Acid Calcium 6.7 L Phosphorus Magnesium Ferritin Direct Bilirubin AST ALT Alkaline Phosphatase Lactate Dehydrogenase Total Creatine Kinase C-Reactive Protein Total Protein Albumin Triglycerides Arterial Blood Glucose Arterial Blood Ionized Calcium Urine Creatinine Urine Chloride Vancomycin Trough Coronavirus (PCR) Crossmatch 06/22/20 06/22/20 06/22/20 14:37 17:00 17:40 WBC RBC Hgb Hct MCHC RDW Lymph % (Auto) [place] % (Auto) Lymph # (Auto) [place] # (Auto) Eos # (Auto) Seg Neutrophils % Seg Neuts % (Manual) Lymphocytes % (Manual) Monocytes % (Manual) Nucleated RBC % Seg Neutrophils # Seg Neutrophils # Man Lymphocytes # (Manual) Monocytes # (Manual) Eosinophils # (Manual) PT INR APTT D-Dimer Heparin Anti-Xa Level 1.32 H ABG pH POC ABG pCO2 POC ABG pO2 ABG pO2 ABG HCO3 ABG Hemoglobin ABG Oxyhemoglobin ABG Sodium ABG Potassium ABG Chloride ABG Glucose Carboxyhemoglobin Sodium Potassium Chloride Carbon Dioxide BUN Creatinine Glucose POC Glucose 171 H Lactic Acid Calcium Phosphorus Magnesium Ferritin Direct Bilirubin AST ALT Alkaline Phosphatase Lactate Dehydrogenase Total Creatine Kinase C-Reactive Protein 5.30 H Total Protein Albumin Triglycerides Arterial Blood Glucose Arterial Blood Ionized Calcium Urine Creatinine Urine Chloride Vancomycin Trough Coronavirus (PCR) Crossmatch 06/22/20 06/23/20 06/23/20 23:36 02:13 02:41 WBC RBC Hgb Hct MCHC RDW Lymph % (Auto) [place] % (Auto) Lymph # (Auto) [place] # (Auto) Eos # (Auto) Seg Neutrophils % Seg Neuts % (Manual) Lymphocytes % (Manual) Monocytes % (Manual) Nucleated RBC % Seg Neutrophils # Seg Neutrophils # Man Lymphocytes # (Manual) Monocytes # (Manual) Eosinophils # (Manual) PT INR APTT D-Dimer Heparin Anti-Xa Level 0.21 L ABG pH 7.318 L POC ABG pCO2 POC ABG pO2 157.5 H ABG pO2 ABG HCO3 ABG Hemoglobin ABG Oxyhemoglobin ABG Sodium 135.6 L ABG Potassium 4.6 H ABG Chloride 110.0 H ABG Glucose 169 H Carboxyhemoglobin Sodium Potassium Chloride Carbon Dioxide BUN Creatinine Glucose POC Glucose 155 H Lactic Acid Calcium Phosphorus Magnesium Ferritin Direct Bilirubin AST ALT Alkaline Phosphatase Lactate Dehydrogenase Total Creatine Kinase C-Reactive Protein Total Protein Albumin Triglycerides Arterial Blood Glucose 169 H Arterial Blood Ionized Calcium Urine Creatinine Urine Chloride Vancomycin Trough Coronavirus (PCR) Crossmatch 06/23/20 06/23/20 06/23/20 04:00 04:00 05:24 WBC 27.4 H RBC Hgb 11.3 L Hct 33.8 L MCHC RDW Lymph % (Auto) [place] % (Auto) Lymph # (Auto) [place] # (Auto) Eos # (Auto) Seg Neutrophils % Seg Neuts % (Manual) 93.0 H Lymphocytes % (Manual) 1.0 L Monocytes % (Manual) Nucleated RBC % 1.0 H Seg Neutrophils # Seg Neutrophils # Man 25.5 H Lymphocytes # (Manual) 0.3 L Monocytes # (Manual) 1.1 H Eosinophils # (Manual) PT INR APTT D-Dimer Heparin Anti-Xa Level ABG pH POC ABG pCO2 POC ABG pO2 ABG pO2 ABG HCO3 ABG Hemoglobin ABG Oxyhemoglobin ABG Sodium ABG Potassium ABG Chloride ABG Glucose Carboxyhemoglobin Sodium Potassium Chloride 107.6 H Carbon Dioxide 20 L BUN 100 H Creatinine 4.7 H Glucose 168 H POC Glucose 151 H Lactic Acid Calcium Phosphorus Magnesium Ferritin Direct Bilirubin AST ALT Alkaline Phosphatase Lactate Dehydrogenase Total Creatine Kinase C-Reactive Protein Total Protein Albumin Triglycerides Arterial Blood Glucose Arterial Blood Ionized Calcium Urine Creatinine Urine Chloride Vancomycin Trough Coronavirus (PCR) Crossmatch 06/23/20 06/23/20 06/23/20 11:30 17:18 23:50 WBC RBC Hgb Hct MCHC RDW Lymph % (Auto) [place] % (Auto) Lymph # (Auto) [place] # (Auto) Eos # (Auto) Seg Neutrophils % Seg Neuts % (Manual) Lymphocytes % (Manual) Monocytes % (Manual) Nucleated RBC % Seg Neutrophils # Seg Neutrophils # Man Lymphocytes # (Manual) Monocytes # (Manual) Eosinophils # (Manual) PT INR APTT D-Dimer Heparin Anti-Xa Level ABG pH POC ABG pCO2 POC ABG pO2 ABG pO2 ABG HCO3 ABG Hemoglobin ABG Oxyhemoglobin ABG Sodium ABG Potassium ABG Chloride ABG Glucose Carboxyhemoglobin Sodium Potassium Chloride Carbon Dioxide BUN Creatinine Glucose POC Glucose 157 H 156 H 162 H Lactic Acid Calcium Phosphorus Magnesium Ferritin Direct Bilirubin AST ALT Alkaline Phosphatase Lactate Dehydrogenase Total Creatine Kinase C-Reactive Protein Total Protein Albumin Triglycerides Arterial Blood Glucose Arterial Blood Ionized Calcium Urine Creatinine Urine Chloride Vancomycin Trough Coronavirus (PCR) Crossmatch 06/24/20 06/24/20 06/24/20 04:41 05:57 06:30 WBC 34.3 H RBC Hgb 10.9 L Hct 32.6 L MCHC RDW Lymph % (Auto) 2.0 L [place] % (Auto) Lymph # (Auto) 0.7 L [place] # (Auto) 1.2 H Eos # (Auto) Seg Neutrophils % Seg Neuts % (Manual) 96.0 H Lymphocytes % (Manual) 3.0 L Monocytes % (Manual) Nucleated RBC % Seg Neutrophils # 32.3 H Seg Neutrophils # Man 32.9 H Lymphocytes # (Manual) 1.0 L Monocytes # (Manual) Eosinophils # (Manual) PT INR APTT D-Dimer Heparin Anti-Xa Level ABG pH POC ABG pCO2 POC ABG pO2 71.1 L ABG pO2 ABG HCO3 ABG Hemoglobin ABG Oxyhemoglobin 92.4 L ABG Sodium 115.6 L ABG Potassium ABG Chloride ABG Glucose 159 H Carboxyhemoglobin Sodium Potassium Chloride Carbon Dioxide BUN Creatinine Glucose POC Glucose 143 H Lactic Acid Calcium Phosphorus Magnesium Ferritin Direct Bilirubin AST ALT Alkaline Phosphatase Lactate Dehydrogenase Total Creatine Kinase C-Reactive Protein Total Protein Albumin Triglycerides Arterial Blood Glucose 159 H Arterial Blood Ionized Calcium 4.2 L Urine Creatinine Urine Chloride Vancomycin Trough Coronavirus (PCR) Crossmatch 06/24/20 06/24/20 06/24/20 07:03 09:37 11:56 WBC RBC Hgb Hct MCHC RDW Lymph % (Auto) [place] % (Auto) Lymph # (Auto) [place] # (Auto) Eos # (Auto) Seg Neutrophils % Seg Neuts % (Manual) Lymphocytes % (Manual) Monocytes % (Manual) Nucleated RBC % Seg Neutrophils # Seg Neutrophils # Man Lymphocytes # (Manual) Monocytes # (Manual) Eosinophils # (Manual) PT INR APTT D-Dimer Heparin Anti-Xa Level 0.26 L ABG pH POC ABG pCO2 POC ABG pO2 ABG pO2 ABG HCO3 ABG Hemoglobin ABG Oxyhemoglobin ABG Sodium ABG Potassium ABG Chloride ABG Glucose Carboxyhemoglobin Sodium Potassium 5.1 H Chloride Carbon Dioxide BUN 103 H Creatinine 5.0 H Glucose 163 H POC Glucose 149 H Lactic Acid Calcium 7.6 L Phosphorus Magnesium Ferritin Direct Bilirubin AST ALT Alkaline Phosphatase Lactate Dehydrogenase Total Creatine Kinase C-Reactive Protein Total Protein Albumin Triglycerides Arterial Blood Glucose Arterial Blood Ionized Calcium Urine Creatinine Urine Chloride Vancomycin Trough Coronavirus (PCR) Crossmatch 06/24/20 06/25/20 06/25/20 18:09 01:05 03:00 WBC RBC Hgb 10.6 L Hct 32.1 L MCHC RDW Lymph % (Auto) [place] % (Auto) Lymph # (Auto) [place] # (Auto) Eos # (Auto) Seg Neutrophils % Seg Neuts % (Manual) Lymphocytes % (Manual) Monocytes % (Manual) Nucleated RBC % Seg Neutrophils # Seg Neutrophils # Man Lymphocytes # (Manual) Monocytes # (Manual) Eosinophils # (Manual) PT INR APTT D-Dimer Heparin Anti-Xa Level ABG pH POC ABG pCO2 POC ABG pO2 ABG pO2 ABG HCO3 ABG Hemoglobin ABG Oxyhemoglobin ABG Sodium ABG Potassium ABG Chloride ABG Glucose Carboxyhemoglobin Sodium Potassium Chloride Carbon Dioxide BUN Creatinine Glucose POC Glucose 141 H 137 H Lactic Acid Calcium Phosphorus Magnesium Ferritin Direct Bilirubin AST ALT Alkaline Phosphatase Lactate Dehydrogenase Total Creatine Kinase C-Reactive Protein Total Protein Albumin Triglycerides Arterial Blood Glucose Arterial Blood Ionized Calcium Urine Creatinine Urine Chloride Vancomycin Trough Coronavirus (PCR) Crossmatch 06/25/20 06/25/20 06/25/20 03:48 05:17 12:08 WBC RBC Hgb Hct MCHC RDW Lymph % (Auto) [place] % (Auto) Lymph # (Auto) [place] # (Auto) Eos # (Auto) Seg Neutrophils % Seg Neuts % (Manual) Lymphocytes % (Manual) Monocytes % (Manual) Nucleated RBC % Seg Neutrophils # Seg Neutrophils # Man Lymphocytes # (Manual) Monocytes # (Manual) Eosinophils # (Manual) PT INR APTT D-Dimer Heparin Anti-Xa Level ABG pH POC ABG pCO2 29.4 L POC ABG pO2 67.1 L ABG pO2 ABG HCO3 ABG Hemoglobin 11.5 L ABG Oxyhemoglobin ABG Sodium 124.1 L ABG Potassium 4.6 H ABG Chloride ABG Glucose 159 H Carboxyhemoglobin Sodium Potassium Chloride Carbon Dioxide BUN Creatinine Glucose POC Glucose 149 H 150 H Lactic Acid Calcium Phosphorus Magnesium Ferritin Direct Bilirubin AST ALT Alkaline Phosphatase Lactate Dehydrogenase Total Creatine Kinase C-Reactive Protein Total Protein Albumin Triglycerides Arterial Blood Glucose 159 H Arterial Blood Ionized Calcium 4.2 L Urine Creatinine Urine Chloride Vancomycin Trough Coronavirus (PCR) Crossmatch 06/25/20 06/25/20 06/25/20 16:27 16:35 17:27 WBC RBC Hgb Hct MCHC RDW Lymph % (Auto) [place] % (Auto) Lymph # (Auto) [place] # (Auto) Eos # (Auto) Seg Neutrophils % Seg Neuts % (Manual) Lymphocytes % (Manual) Monocytes % (Manual) Nucleated RBC % Seg Neutrophils # Seg Neutrophils # Man Lymphocytes # (Manual) Monocytes # (Manual) Eosinophils # (Manual) PT INR APTT D-Dimer Heparin Anti-Xa Level < 0.10 L ABG pH POC ABG pCO2 POC ABG pO2 ABG pO2 ABG HCO3 ABG Hemoglobin ABG Oxyhemoglobin ABG Sodium ABG Potassium ABG Chloride ABG Glucose Carboxyhemoglobin Sodium Potassium Chloride Carbon Dioxide BUN Creatinine Glucose POC Glucose 143 H 156 H Lactic Acid Calcium Phosphorus Magnesium Ferritin Direct Bilirubin AST ALT Alkaline Phosphatase Lactate Dehydrogenase Total Creatine Kinase C-Reactive Protein Total Protein Albumin Triglycerides Arterial Blood Glucose Arterial Blood Ionized Calcium Urine Creatinine Urine Chloride Vancomycin Trough Coronavirus (PCR) Crossmatch 06/25/20 06/25/20 06/25/20 20:00 20:55 23:10 WBC 32.7 H RBC 3.06 L Hgb 9.0 L 9.5 L Hct 26.7 L 28.6 L MCHC RDW Lymph % (Auto) [place] % (Auto) Lymph # (Auto) [place] # (Auto) Eos # (Auto) Seg Neutrophils % Seg Neuts % (Manual) Lymphocytes % (Manual) 2.0 L Monocytes % (Manual) Nucleated RBC % Seg Neutrophils # Seg Neutrophils # Man 30.7 H Lymphocytes # (Manual) 0.7 L Monocytes # (Manual) 1.3 H Eosinophils # (Manual) PT 17.7 H INR 1.47 H APTT 65.8 H* D-Dimer Heparin Anti-Xa Level ABG pH POC ABG pCO2 POC ABG pO2 ABG pO2 ABG HCO3 ABG Hemoglobin ABG Oxyhemoglobin ABG Sodium ABG Potassium ABG Chloride ABG Glucose Carboxyhemoglobin Sodium Potassium Chloride Carbon Dioxide BUN Creatinine Glucose POC Glucose Lactic Acid Calcium Phosphorus Magnesium Ferritin Direct Bilirubin AST ALT Alkaline Phosphatase Lactate Dehydrogenase Total Creatine Kinase C-Reactive Protein Total Protein Albumin Triglycerides Arterial Blood Glucose Arterial Blood Ionized Calcium Urine Creatinine Urine Chloride Vancomycin Trough Coronavirus (PCR) Crossmatch 06/25/20 06/26/20 06/26/20 23:14 01:30 03:25 WBC RBC Hgb Hct MCHC RDW Lymph % (Auto) [place] % (Auto) Lymph # (Auto) [place] # (Auto) Eos # (Auto) Seg Neutrophils % Seg Neuts % (Manual) Lymphocytes % (Manual) Monocytes % (Manual) Nucleated RBC % Seg Neutrophils # Seg Neutrophils # Man Lymphocytes # (Manual) Monocytes # (Manual) Eosinophils # (Manual) PT INR APTT D-Dimer Heparin Anti-Xa Level < 0.10 L ABG pH POC ABG pCO2 POC ABG pO2 ABG pO2 ABG HCO3 ABG Hemoglobin 11.8 L ABG Oxyhemoglobin ABG Sodium 127.1 L ABG Potassium 5.4 H ABG Chloride ABG Glucose 155 H Carboxyhemoglobin 0.3 L Sodium Potassium Chloride Carbon Dioxide BUN Creatinine Glucose POC Glucose 148 H Lactic Acid Calcium Phosphorus Magnesium Ferritin Direct Bilirubin AST ALT Alkaline Phosphatase Lactate Dehydrogenase Total Creatine Kinase C-Reactive Protein Total Protein Albumin Triglycerides Arterial Blood Glucose 155 H Arterial Blood Ionized Calcium 4.2 L Urine Creatinine Urine Chloride Vancomycin Trough Coronavirus (PCR) Crossmatch 06/26/20 06/26/20 06/26/20 03:59 05:14 05:47 WBC 36.5 H RBC 3.26 L Hgb 9.7 L Hct 28.2 L MCHC RDW Lymph % (Auto) [place] % (Auto) Lymph # (Auto) [place] # (Auto) Eos # (Auto) Seg Neutrophils % Seg Neuts % (Manual) 92.0 H Lymphocytes % (Manual) 4.0 L Monocytes % (Manual) Nucleated RBC % Seg Neutrophils # Seg Neutrophils # Man 33.6 H Lymphocytes # (Manual) Monocytes # (Manual) Eosinophils # (Manual) PT INR APTT D-Dimer Heparin Anti-Xa Level ABG pH POC ABG pCO2 POC ABG pO2 ABG pO2 ABG HCO3 ABG Hemoglobin ABG Oxyhemoglobin ABG Sodium ABG Potassium ABG Chloride ABG Glucose Carboxyhemoglobin Sodium Potassium 5.9 H Chloride Carbon Dioxide 20 L BUN 144 H Creatinine 6.4 H Glucose 149 H POC Glucose 128 H Lactic Acid Calcium 7.6 L Phosphorus Magnesium Ferritin Direct Bilirubin AST ALT Alkaline Phosphatase Lactate Dehydrogenase Total Creatine Kinase C-Reactive Protein Total Protein Albumin Triglycerides Arterial Blood Glucose Arterial Blood Ionized Calcium Urine Creatinine Urine Chloride Vancomycin Trough Coronavirus (PCR) Crossmatch 06/26/20 06/26/20 06/26/20 05:47 12:47 17:42 WBC RBC Hgb Hct MCHC RDW Lymph % (Auto) [place] % (Auto) Lymph # (Auto) [place] # (Auto) Eos # (Auto) Seg Neutrophils % Seg Neuts % (Manual) Lymphocytes % (Manual) Monocytes % (Manual) Nucleated RBC % Seg Neutrophils # Seg Neutrophils # Man Lymphocytes # (Manual) Monocytes # (Manual) Eosinophils # (Manual) PT 17.4 H INR 1.44 H APTT D-Dimer Heparin Anti-Xa Level ABG pH POC ABG pCO2 POC ABG pO2 ABG pO2 ABG HCO3 ABG Hemoglobin ABG Oxyhemoglobin ABG Sodium ABG Potassium ABG Chloride ABG Glucose Carboxyhemoglobin Sodium Potassium Chloride Carbon Dioxide BUN Creatinine Glucose POC Glucose 124 H 127 H Lactic Acid Calcium Phosphorus Magnesium Ferritin Direct Bilirubin AST ALT Alkaline Phosphatase Lactate Dehydrogenase Total Creatine Kinase C-Reactive Protein Total Protein Albumin Triglycerides Arterial Blood Glucose Arterial Blood Ionized Calcium Urine Creatinine Urine Chloride Vancomycin Trough Coronavirus (PCR) Crossmatch 06/26/20 06/27/20 06/27/20 23:30 03:32 04:00 WBC RBC Hgb 8.7 L Hct 26.4 L MCHC RDW Lymph % (Auto) [place] % (Auto) Lymph # (Auto) [place] # (Auto) Eos # (Auto) Seg Neutrophils % Seg Neuts % (Manual) Lymphocytes % (Manual) Monocytes % (Manual) Nucleated RBC % Seg Neutrophils # Seg Neutrophils # Man Lymphocytes # (Manual) Monocytes # (Manual) Eosinophils # (Manual) PT INR APTT D-Dimer Heparin Anti-Xa Level ABG pH 7.298 L POC ABG pCO2 POC ABG pO2 ABG pO2 ABG HCO3 ABG Hemoglobin 9.6 L ABG Oxyhemoglobin ABG Sodium 124.4 L ABG Potassium 6.6 H ABG Chloride ABG Glucose 136 H Carboxyhemoglobin Sodium Potassium Chloride Carbon Dioxide BUN Creatinine Glucose POC Glucose 123 H Lactic Acid Calcium Phosphorus Magnesium Ferritin Direct Bilirubin AST ALT Alkaline Phosphatase Lactate Dehydrogenase Total Creatine Kinase C-Reactive Protein Total Protein Albumin Triglycerides Arterial Blood Glucose 136 H Arterial Blood Ionized Calcium 4.1 L Urine Creatinine Urine Chloride Vancomycin Trough Coronavirus (PCR) Crossmatch 06/27/20 06/27/20 06/27/20 05:26 10:14 11:58 WBC RBC Hgb Hct MCHC RDW Lymph % (Auto) [place] % (Auto) Lymph # (Auto) [place] # (Auto) Eos # (Auto) Seg Neutrophils % Seg Neuts % (Manual) Lymphocytes % (Manual) Monocytes % (Manual) Nucleated RBC % Seg Neutrophils # Seg Neutrophils # Man Lymphocytes # (Manual) Monocytes # (Manual) Eosinophils # (Manual) PT INR APTT D-Dimer Heparin Anti-Xa Level ABG pH POC ABG pCO2 POC ABG pO2 ABG pO2 ABG HCO3 ABG Hemoglobin ABG Oxyhemoglobin ABG Sodium ABG Potassium ABG Chloride ABG Glucose Carboxyhemoglobin Sodium 136 L Potassium 7.0 H* Chloride 97.8 L Carbon Dioxide BUN 172 H Creatinine 7.4 H Glucose 129 H POC Glucose 124 H 115 H Lactic Acid Calcium 7.6 L Phosphorus Magnesium Ferritin Direct Bilirubin AST ALT Alkaline Phosphatase Lactate Dehydrogenase Total Creatine Kinase C-Reactive Protein Total Protein Albumin Triglycerides Arterial Blood Glucose Arterial Blood Ionized Calcium Urine Creatinine Urine Chloride Vancomycin Trough Coronavirus (PCR) Crossmatch 06/27/20 06/27/20 06/27/20 17:32 18:30 23:24 WBC RBC Hgb Hct MCHC RDW Lymph % (Auto) [place] % (Auto) Lymph # (Auto) [place] # (Auto) Eos # (Auto) Seg Neutrophils % Seg Neuts % (Manual) Lymphocytes % (Manual) Monocytes % (Manual) Nucleated RBC % Seg Neutrophils # Seg Neutrophils # Man Lymphocytes # (Manual) Monocytes # (Manual) Eosinophils # (Manual) PT INR APTT D-Dimer Heparin Anti-Xa Level ABG pH POC ABG pCO2 POC ABG pO2 ABG pO2 ABG HCO3 ABG Hemoglobin ABG Oxyhemoglobin ABG Sodium ABG Potassium ABG Chloride ABG Glucose Carboxyhemoglobin Sodium Potassium 7.3 H* Chloride Carbon Dioxide BUN Creatinine Glucose POC Glucose 122 H 116 H Lactic Acid Calcium Phosphorus Magnesium Ferritin Direct Bilirubin AST ALT Alkaline Phosphatase Lactate Dehydrogenase Total Creatine Kinase C-Reactive Protein Total Protein Albumin Triglycerides Arterial Blood Glucose Arterial Blood Ionized Calcium Urine Creatinine Urine Chloride Vancomycin Trough Coronavirus (PCR) Crossmatch 06/28/20 06/28/20 06/28/20 00:00 02:16 05:37 WBC RBC Hgb Hct MCHC RDW Lymph % (Auto) [place] % (Auto) Lymph # (Auto) [place] # (Auto) Eos # (Auto) Seg Neutrophils % Seg Neuts % (Manual) Lymphocytes % (Manual) Monocytes % (Manual) Nucleated RBC % Seg Neutrophils # Seg Neutrophils # Man Lymphocytes # (Manual) Monocytes # (Manual) Eosinophils # (Manual) PT INR APTT D-Dimer Heparin Anti-Xa Level ABG pH POC ABG pCO2 POC ABG pO2 79.0 L ABG pO2 ABG HCO3 ABG Hemoglobin 11.7 L ABG Oxyhemoglobin ABG Sodium 128.1 L ABG Potassium 6.6 H ABG Chloride ABG Glucose 124 H Carboxyhemoglobin Sodium Potassium 7.3 H* Chloride Carbon Dioxide BUN Creatinine Glucose POC Glucose 115 H Lactic Acid Calcium Phosphorus Magnesium Ferritin Direct Bilirubin AST ALT Alkaline Phosphatase Lactate Dehydrogenase Total Creatine Kinase C-Reactive Protein Total Protein Albumin Triglycerides Arterial Blood Glucose 124 H Arterial Blood Ionized Calcium 4.2 L Urine Creatinine Urine Chloride Vancomycin Trough Coronavirus (PCR) Crossmatch 06/28/20 06/28/20 06/28/20 10:03 10:03 11:51 WBC 33.6 H RBC 3.03 L Hgb 8.9 L Hct 27.0 L MCHC RDW Lymph % (Auto) [place] % (Auto) Lymph # (Auto) [place] # (Auto) Eos # (Auto) Seg Neutrophils % Seg Neuts % (Manual) Lymphocytes % (Manual) Monocytes % (Manual) Nucleated RBC % Seg Neutrophils # Seg Neutrophils # Man Lymphocytes # (Manual) Monocytes # (Manual) Eosinophils # (Manual) PT INR APTT D-Dimer Heparin Anti-Xa Level ABG pH POC ABG pCO2 POC ABG pO2 ABG pO2 ABG HCO3 ABG Hemoglobin ABG Oxyhemoglobin ABG Sodium ABG Potassium ABG Chloride ABG Glucose Carboxyhemoglobin Sodium 136 L Potassium 6.5 H* Chloride Carbon Dioxide 20 L BUN 129 H Creatinine 5.8 H Glucose 113 H POC Glucose 107 H Lactic Acid Calcium 7.6 L Phosphorus Magnesium Ferritin Direct Bilirubin AST ALT Alkaline Phosphatase Lactate Dehydrogenase Total Creatine Kinase C-Reactive Protein Total Protein Albumin Triglycerides Arterial Blood Glucose Arterial Blood Ionized Calcium Urine Creatinine Urine Chloride Vancomycin Trough Coronavirus (PCR) Crossmatch 06/28/20 06/28/20 06/29/20 17:45 Unknown 03:15 WBC RBC Hgb Hct MCHC RDW Lymph % (Auto) [place] % (Auto) Lymph # (Auto) [place] # (Auto) Eos # (Auto) Seg Neutrophils % Seg Neuts % (Manual) Lymphocytes % (Manual) Monocytes % (Manual) Nucleated RBC % Seg Neutrophils # Seg Neutrophils # Man Lymphocytes # (Manual) Monocytes # (Manual) Eosinophils # (Manual) PT INR APTT D-Dimer Heparin Anti-Xa Level ABG pH POC ABG pCO2 POC ABG pO2 ABG pO2 ABG HCO3 ABG Hemoglobin 7.8 L ABG Oxyhemoglobin ABG Sodium 127.4 L ABG Potassium 5.5 H ABG Chloride 97.0 L ABG Glucose 96 H Carboxyhemoglobin Sodium Potassium 5.4 H Chloride Carbon Dioxide BUN Creatinine Glucose POC Glucose 117 H Lactic Acid Calcium Phosphorus Magnesium Ferritin Direct Bilirubin AST ALT Alkaline Phosphatase Lactate Dehydrogenase Total Creatine Kinase C-Reactive Protein Total Protein Albumin Triglycerides Arterial Blood Glucose 96 H Arterial Blood Ionized Calcium 4.0 L Urine Creatinine Urine Chloride Vancomycin Trough Coronavirus (PCR) Crossmatch 06/29/20 06/29/20 06/29/20 03:45 Unknown Unknown WBC RBC Hgb Hct MCHC RDW Lymph % (Auto) [place] % (Auto) Lymph # (Auto) [place] # (Auto) Eos # (Auto) Seg Neutrophils % Seg Neuts % (Manual) Lymphocytes % (Manual) Monocytes % (Manual) Nucleated RBC % Seg Neutrophils # Seg Neutrophils # Man Lymphocytes # (Manual) Monocytes # (Manual) Eosinophils # (Manual) PT INR APTT D-Dimer Heparin Anti-Xa Level ABG pH POC ABG pCO2 POC ABG pO2 ABG pO2 ABG HCO3 ABG Hemoglobin ABG Oxyhemoglobin ABG Sodium ABG Potassium ABG Chloride ABG Glucose Carboxyhemoglobin Sodium 135 L Potassium 6.0 H 6.1 H* Chloride 94.8 L Carbon Dioxide BUN 109 H 114 H Creatinine 5.5 H Glucose POC Glucose Lactic Acid Calcium 7.4 L Phosphorus Magnesium Ferritin Direct Bilirubin AST 47 H ALT Alkaline Phosphatase Lactate Dehydrogenase Total Creatine Kinase C-Reactive Protein Total Protein 4.9 L Albumin 2.2 L Triglycerides Arterial Blood Glucose Arterial Blood Ionized Calcium Urine Creatinine Urine Chloride Vancomycin Trough Coronavirus (PCR) Crossmatch 06/29/20 06/29/2006/30/21 Unknown Unknown 03:32 WBC 20.7 H RBC 2.57 L Hgb 7.6 L Hct 23.0 L MCHC RDW Lymph % (Auto) [place] % (Auto) Lymph # (Auto) [place] # (Auto) Eos # (Auto) Seg Neutrophils % Seg Neuts % (Manual) Lymphocytes % (Manual) Monocytes % (Manual) Nucleated RBC % Seg Neutrophils # Seg Neutrophils # Man Lymphocytes # (Manual) Monocytes # (Manual) Eosinophils # (Manual) PT INR APTT D-Dimer Heparin Anti-Xa Level ABG pH POC ABG pCO2 POC ABG pO2 ABG pO2 ABG HCO3 ABG Hemoglobin 11.4 L ABG Oxyhemoglobin ABG Sodium 130.1 L ABG Potassium 5.0 H ABG Chloride ABG Glucose Carboxyhemoglobin Sodium Potassium Chloride Carbon Dioxide BUN Creatinine Glucose POC Glucose Lactic Acid Calcium Phosphorus Magnesium Ferritin Direct Bilirubin AST ALT Alkaline Phosphatase Lactate Dehydrogenase Total Creatine Kinase 618 H C-Reactive Protein Total Protein Albumin Triglycerides Arterial Blood Glucose Arterial Blood Ionized Calcium 3.9 L Urine Creatinine Urine Chloride Vancomycin Trough Coronavirus (PCR) Crossmatch 06/30/20 06/30/20 06/30/20 03:50 03:50 11:39 WBC 13.1 H RBC Hgb Hct MCHC RDW Lymph % (Auto) [place] % (Auto) Lymph # (Auto) [place] # (Auto) Eos # (Auto) Seg Neutrophils % Seg Neuts % (Manual) 95.0 H Lymphocytes % (Manual) 3.0 L Monocytes % (Manual) Nucleated RBC % Seg Neutrophils # Seg Neutrophils # Man 12.4 H Lymphocytes # (Manual) 0.4 L Monocytes # (Manual) Eosinophils # (Manual) PT INR APTT D-Dimer Heparin Anti-Xa Level ABG pH POC ABG pCO2 POC ABG pO2 ABG pO2 ABG HCO3 ABG Hemoglobin ABG Oxyhemoglobin ABG Sodium ABG Potassium ABG Chloride ABG Glucose Carboxyhemoglobin Sodium 135 L Potassium 5.4 H D Chloride 93.6 L Carbon Dioxide BUN 85 H Creatinine 4.6 H Glucose POC Glucose 111 H Lactic Acid Calcium 7.1 L Phosphorus 9.40 H Magnesium Ferritin Direct Bilirubin AST ALT Alkaline Phosphatase Lactate Dehydrogenase Total Creatine Kinase C-Reactive Protein Total Protein Albumin Triglycerides Arterial Blood Glucose Arterial Blood Ionized Calcium Urine Creatinine Urine Chloride Vancomycin Trough Coronavirus (PCR) Crossmatch 06/30/20 06/30/2007/01/21 13:12 Unknown 03:19 WBC RBC Hgb 7.8 L D Hct 23.2 L D MCHC RDW Lymph % (Auto) [place] % (Auto) Lymph # (Auto) [place] # (Auto) Eos # (Auto) Seg Neutrophils % Seg Neuts % (Manual) Lymphocytes % (Manual) Monocytes % (Manual) Nucleated RBC % Seg Neutrophils # Seg Neutrophils # Man Lymphocytes # (Manual) Monocytes # (Manual) Eosinophils # (Manual) PT INR APTT D-Dimer Heparin Anti-Xa Level ABG pH 7.461 H POC ABG pCO2 POC ABG pO2 77.2 L ABG pO2 ABG HCO3 ABG Hemoglobin 6.9 L ABG Oxyhemoglobin ABG Sodium 128.5 L ABG Potassium ABG Chloride 97.0 L ABG Glucose Carboxyhemoglobin Sodium Potassium Chloride Carbon Dioxide BUN Creatinine Glucose POC Glucose Lactic Acid Calcium Phosphorus Magnesium Ferritin Direct Bilirubin AST ALT Alkaline Phosphatase Lactate Dehydrogenase Total Creatine Kinase C-Reactive Protein Total Protein Albumin Triglycerides Arterial Blood Glucose Arterial Blood Ionized Calcium 3.7 L Urine Creatinine Urine Chloride Vancomycin Trough Coronavirus (PCR) Positive A Crossmatch 07/01/20 07/01/20 07/01/20 06:00 06:00 11:04 WBC 16.7 H RBC 2.16 L Hgb 6.4 L Hct 19.2 L* MCHC RDW Lymph % (Auto) [place] % (Auto) Lymph # (Auto) [place] # (Auto) Eos # (Auto) Seg Neutrophils % Seg Neuts % (Manual) Lymphocytes % (Manual) Monocytes % (Manual) Nucleated RBC % Seg Neutrophils # Seg Neutrophils # Man Lymphocytes # (Manual) Monocytes # (Manual) Eosinophils # (Manual) PT INR APTT D-Dimer Heparin Anti-Xa Level ABG pH POC ABG pCO2 POC ABG pO2 ABG pO2 ABG HCO3 ABG Hemoglobin ABG Oxyhemoglobin ABG Sodium ABG Potassium ABG Chloride ABG Glucose Carboxyhemoglobin Sodium 136 L Potassium Chloride 95.8 L Carbon Dioxide BUN 72 H Creatinine 4.3 H Glucose POC Glucose Lactic Acid Calcium 6.7 L Phosphorus Magnesium Ferritin Direct Bilirubin AST ALT Alkaline Phosphatase Lactate Dehydrogenase Total Creatine Kinase C-Reactive Protein Total Protein Albumin Triglycerides 250 H Arterial Blood Glucose Arterial Blood Ionized Calcium Urine Creatinine Urine Chloride Vancomycin Trough Coronavirus (PCR) Crossmatch See Detail 07/02/20 07/02/20 07/02/20 04:44 06:00 11:33 WBC 14.6 H RBC 2.47 L Hgb 7.4 L Hct 21.8 L MCHC RDW Lymph % (Auto) [place] % (Auto) Lymph # (Auto) [place] # (Auto) Eos # (Auto) Seg Neutrophils % Seg Neuts % (Manual) Lymphocytes % (Manual) Monocytes % (Manual) Nucleated RBC % Seg Neutrophils # Seg Neutrophils # Man Lymphocytes # (Manual) Monocytes # (Manual) Eosinophils # (Manual) PT INR APTT D-Dimer Heparin Anti-Xa Level ABG pH 7.457 H POC ABG pCO2 POC ABG pO2 79.4 L ABG pO2 ABG HCO3 ABG Hemoglobin 8.5 L ABG Oxyhemoglobin ABG Sodium 128.4 L ABG Potassium ABG Chloride 97.0 L ABG Glucose 100 H Carboxyhemoglobin Sodium 133 L Potassium 5.2 H Chloride 93.3 L Carbon Dioxide BUN 66 H Creatinine 4.1 H Glucose 102 H POC Glucose Lactic Acid Calcium 7.2 L Phosphorus Magnesium Ferritin Direct Bilirubin AST ALT Alkaline Phosphatase Lactate Dehydrogenase Total Creatine Kinase C-Reactive Protein Total Protein Albumin Triglycerides Arterial Blood Glucose 100 H Arterial Blood Ionized Calcium 3.9 L Urine Creatinine Urine Chloride Vancomycin Trough Coronavirus (PCR) Crossmatch 07/02/20 07/03/20 07/03/20 11:33 03:54 09:15 WBC 16.6 H RBC 2.44 L Hgb 7.3 L Hct 21.4 L MCHC RDW Lymph % (Auto) [place] % (Auto) Lymph # (Auto) [place] # (Auto) Eos # (Auto) Seg Neutrophils % Seg Neuts % (Manual) Lymphocytes % (Manual) Monocytes % (Manual) Nucleated RBC % Seg Neutrophils # Seg Neutrophils # Man Lymphocytes # (Manual) Monocytes # (Manual) Eosinophils # (Manual) PT INR APTT D-Dimer Heparin Anti-Xa Level ABG pH POC ABG pCO2 POC ABG pO2 66.1 L ABG pO2 ABG HCO3 ABG Hemoglobin 8.0 L ABG Oxyhemoglobin ABG Sodium 124.6 L ABG Potassium 5.5 H ABG Chloride 96.0 L ABG Glucose 111 H Carboxyhemoglobin Sodium Potassium Chloride Carbon Dioxide BUN Creatinine Glucose POC Glucose Lactic Acid Calcium Phosphorus Magnesium Ferritin Direct Bilirubin 0.7 H AST 94 H ALT 60 H Alkaline Phosphatase Lactate Dehydrogenase Total Creatine Kinase C-Reactive Protein Total Protein 4.4 L Albumin 1.9 L Triglycerides Arterial Blood Glucose 111 H Arterial Blood Ionized Calcium 3.8 L Urine Creatinine Urine Chloride Vancomycin Trough Coronavirus (PCR) Crossmatch 07/03/20 07/03/20 07/03/20 09:15 10:10 14:50 WBC RBC Hgb Hct MCHC RDW Lymph % (Auto) [place] % (Auto) Lymph # (Auto) [place] # (Auto) Eos # (Auto) Seg Neutrophils % Seg Neuts % (Manual) Lymphocytes % (Manual) Monocytes % (Manual) Nucleated RBC % Seg Neutrophils # Seg Neutrophils # Man Lymphocytes # (Manual) Monocytes # (Manual) Eosinophils # (Manual) PT INR APTT D-Dimer 6608.00 H Heparin Anti-Xa Level ABG pH POC ABG pCO2 POC ABG pO2 ABG pO2 ABG HCO3 ABG Hemoglobin ABG Oxyhemoglobin ABG Sodium ABG Potassium ABG Chloride ABG Glucose Carboxyhemoglobin Sodium 133 L Potassium 6.2 H* Chloride 93.1 L Carbon Dioxide BUN 89 H Creatinine 5.1 H Glucose POC Glucose Lactic Acid Calcium 7.0 L Phosphorus Magnesium Ferritin Direct Bilirubin AST ALT Alkaline Phosphatase Lactate Dehydrogenase Total Creatine Kinase C-Reactive Protein Total Protein Albumin Triglycerides Arterial Blood Glucose Arterial Blood Ionized Calcium Urine Creatinine Urine Chloride Vancomycin Trough Coronavirus (PCR) Positive A Crossmatch 07/03/20 07/03/20 07/03/20 14:50 14:50 14:50 WBC RBC Hgb Hct MCHC RDW Lymph % (Auto) [place] % (Auto) Lymph # (Auto) [place] # (Auto) Eos # (Auto) Seg Neutrophils % Seg Neuts % (Manual) Lymphocytes % (Manual) Monocytes % (Manual) Nucleated RBC % Seg Neutrophils # Seg Neutrophils # Man Lymphocytes # (Manual) Monocytes # (Manual) Eosinophils # (Manual) PT INR APTT D-Dimer Heparin Anti-Xa Level ABG pH POC ABG pCO2 POC ABG pO2 ABG pO2 ABG HCO3 ABG Hemoglobin ABG Oxyhemoglobin ABG Sodium ABG Potassium ABG Chloride ABG Glucose Carboxyhemoglobin Sodium Potassium Chloride Carbon Dioxide BUN Creatinine Glucose POC Glucose Lactic Acid < 0.20 L Calcium Phosphorus Magnesium Ferritin 1171.0 H Direct Bilirubin AST ALT Alkaline Phosphatase Lactate Dehydrogenase 525 H Total Creatine Kinase C-Reactive Protein 31.50 H Total Protein Albumin Triglycerides Arterial Blood Glucose Arterial Blood Ionized Calcium Urine Creatinine Urine Chloride Vancomycin Trough Coronavirus (PCR) Crossmatch 07/03/20 07/04/20 07/04/20 16:47 05:20 05:20 WBC 11.8 H RBC 2.32 L Hgb 6.7 L Hct 20.8 L MCHC RDW Lymph % (Auto) 2.6 L [place] % (Auto) Lymph # (Auto) 0.3 L [place] # (Auto) Eos # (Auto) Seg Neutrophils % Seg Neuts % (Manual) Lymphocytes % (Manual) Monocytes % (Manual) Nucleated RBC % Seg Neutrophils # 11.0 H Seg Neutrophils # Man Lymphocytes # (Manual) Monocytes # (Manual) Eosinophils # (Manual) PT INR APTT D-Dimer Heparin Anti-Xa Level ABG pH POC ABG pCO2 POC ABG pO2 ABG pO2 ABG HCO3 ABG Hemoglobin ABG Oxyhemoglobin ABG Sodium ABG Potassium ABG Chloride ABG Glucose Carboxyhemoglobin Sodium Potassium 6.0 H Chloride 97.8 L Carbon Dioxide BUN 75 H Creatinine 4.5 H Glucose 121 H POC Glucose 107 H Lactic Acid Calcium 7.9 L Phosphorus Magnesium Ferritin Direct Bilirubin AST ALT Alkaline Phosphatase Lactate Dehydrogenase Total Creatine Kinase C-Reactive Protein Total Protein Albumin Triglycerides Arterial Blood Glucose Arterial Blood Ionized Calcium Urine Creatinine Urine Chloride Vancomycin Trough Coronavirus (PCR) Crossmatch 07/04/20 07/04/20 07/04/20 05:20 05:50 09:25 WBC RBC Hgb Hct MCHC RDW Lymph % (Auto) [place] % (Auto) Lymph # (Auto) [place] # (Auto) Eos # (Auto) Seg Neutrophils % Seg Neuts % (Manual) Lymphocytes % (Manual) Monocytes % (Manual) Nucleated RBC % Seg Neutrophils # Seg Neutrophils # Man Lymphocytes # (Manual) Monocytes # (Manual) Eosinophils # (Manual) PT INR APTT D-Dimer Heparin Anti-Xa Level ABG pH 7.324 L POC ABG pCO2 POC ABG pO2 ABG pO2 98.9 H ABG HCO3 26.8 H ABG Hemoglobin < 5.1 L ABG Oxyhemoglobin ABG Sodium ABG Potassium ABG Chloride ABG Glucose Carboxyhemoglobin Sodium Potassium Chloride Carbon Dioxide BUN Creatinine Glucose POC Glucose 114 H Lactic Acid Calcium Phosphorus Magnesium Ferritin Direct Bilirubin AST ALT Alkaline Phosphatase Lactate Dehydrogenase Total Creatine Kinase C-Reactive Protein Total Protein Albumin Triglycerides Arterial Blood Glucose Arterial Blood Ionized Calcium Urine Creatinine Urine Chloride Vancomycin Trough Coronavirus (PCR) Crossmatch See Detail 02/07/04/20 07/04/20 12:33 17:41 23:04 WBC RBC Hgb Hct MCHC RDW Lymph % (Auto) [place] % (Auto) Lymph # (Auto) [place] # (Auto) Eos # (Auto) Seg Neutrophils % Seg Neuts % (Manual) Lymphocytes % (Manual) Monocytes % (Manual) Nucleated RBC % Seg Neutrophils # Seg Neutrophils # Man Lymphocytes # (Manual) Monocytes # (Manual) Eosinophils # (Manual) PT INR APTT D-Dimer Heparin Anti-Xa Level ABG pH POC ABG pCO2 POC ABG pO2 ABG pO2 ABG HCO3 ABG Hemoglobin ABG Oxyhemoglobin ABG Sodium ABG Potassium ABG Chloride ABG Glucose Carboxyhemoglobin Sodium Potassium Chloride Carbon Dioxide BUN Creatinine Glucose POC Glucose 119 H 109 H 116 H Lactic Acid Calcium Phosphorus Magnesium Ferritin Direct Bilirubin AST ALT Alkaline Phosphatase Lactate Dehydrogenase Total Creatine Kinase C-Reactive Protein Total Protein Albumin Triglycerides Arterial Blood Glucose Arterial Blood Ionized Calcium Urine Creatinine Urine Chloride Vancomycin Trough Coronavirus (PCR) Crossmatch 07/05/20 07/05/20 07/05/20 04:30 08:21 08:21 WBC RBC 2.77 L Hgb 7.9 L Hct 23.9 L MCHC RDW 16.7 H Lymph % (Auto) 7.5 L [place] % (Auto) Lymph # (Auto) 0.7 L [place] # (Auto) Eos # (Auto) Seg Neutrophils % 85.8 H Seg Neuts % (Manual) Lymphocytes % (Manual) Monocytes % (Manual) Nucleated RBC % Seg Neutrophils # 7.8 H Seg Neutrophils # Man Lymphocytes # (Manual) Monocytes # (Manual) Eosinophils # (Manual) PT INR APTT D-Dimer Heparin Anti-Xa Level ABG pH 7.295 L POC ABG pCO2 POC ABG pO2 ABG pO2 151.9 H ABG HCO3 26.8 H ABG Hemoglobin 7.3 L ABG Oxyhemoglobin ABG Sodium ABG Potassium ABG Chloride ABG Glucose Carboxyhemoglobin Sodium Potassium Chloride Carbon Dioxide BUN Creatinine Glucose POC Glucose Lactic Acid Calcium Phosphorus Magnesium Ferritin Direct Bilirubin AST ALT Alkaline Phosphatase Lactate Dehydrogenase Total Creatine Kinase C-Reactive Protein Total Protein Albumin Triglycerides 258 H Arterial Blood Glucose Arterial Blood Ionized Calcium Urine Creatinine Urine Chloride Vancomycin Trough Coronavirus (PCR) Crossmatch 07/05/20 07/05/20 07/06/20 08:21 12:12 04:29 WBC RBC Hgb Hct MCHC RDW Lymph % (Auto) [place] % (Auto) Lymph # (Auto) [place] # (Auto) Eos # (Auto) Seg Neutrophils % Seg Neuts % (Manual) Lymphocytes % (Manual) Monocytes % (Manual) Nucleated RBC % Seg Neutrophils # Seg Neutrophils # Man Lymphocytes # (Manual) Monocytes # (Manual) Eosinophils # (Manual) PT INR APTT D-Dimer Heparin Anti-Xa Level ABG pH 7.291 L POC ABG pCO2 51.3 H POC ABG pO2 ABG pO2 ABG HCO3 ABG Hemoglobin 8.5 L ABG Oxyhemoglobin ABG Sodium 129.6 L ABG Potassium 4.8 H ABG Chloride 96.0 L ABG Glucose Carboxyhemoglobin Sodium 133 L Potassium 5.6 H Chloride 94.4 L Carbon Dioxide BUN 80 H Creatinine 4.2 H Glucose 114 H POC Glucose 106 H Lactic Acid Calcium 7.6 L Phosphorus Magnesium Ferritin Direct Bilirubin 0.5 H AST 75 H ALT 86 H Alkaline Phosphatase Lactate Dehydrogenase Total Creatine Kinase C-Reactive Protein Total Protein 5.6 L D Albumin 1.9 L Triglycerides Arterial Blood Glucose Arterial Blood Ionized Calcium 4.2 L Urine Creatinine Urine Chloride Vancomycin Trough Coronavirus (PCR) Crossmatch 07/06/20 07/06/20 07/06/20 11:35 11:35 12:16 WBC RBC 2.54 L Hgb 7.5 L Hct 21.5 L MCHC 35 H RDW 15.7 H Lymph % (Auto) [place] % (Auto) Lymph # (Auto) [place] # (Auto) Eos # (Auto) Seg Neutrophils % Seg Neuts % (Manual) Lymphocytes % (Manual) Monocytes % (Manual) Nucleated RBC % Seg Neutrophils # Seg Neutrophils # Man Lymphocytes # (Manual) Monocytes # (Manual) Eosinophils # (Manual) PT INR APTT D-Dimer Heparin Anti-Xa Level ABG pH POC ABG pCO2 POC ABG pO2 ABG pO2 ABG HCO3 ABG Hemoglobin ABG Oxyhemoglobin ABG Sodium ABG Potassium ABG Chloride ABG Glucose Carboxyhemoglobin Sodium 130 L Potassium Chloride 92.2 L Carbon Dioxide 19 L D BUN 107 H Creatinine 5.1 H Glucose 106 H POC Glucose 106 H Lactic Acid Calcium 7.5 L Phosphorus Magnesium Ferritin Direct Bilirubin AST ALT Alkaline Phosphatase Lactate Dehydrogenase Total Creatine Kinase C-Reactive Protein Total Protein Albumin Triglycerides Arterial Blood Glucose Arterial Blood Ionized Calcium Urine Creatinine Urine Chloride Vancomycin Trough Coronavirus (PCR) Crossmatch 07/06/20 07/06/20 07/06/20 17:01 21:56 23:41 WBC RBC Hgb Hct MCHC RDW Lymph % (Auto) [place] % (Auto) Lymph # (Auto) [place] # (Auto) Eos # (Auto) Seg Neutrophils % Seg Neuts % (Manual) Lymphocytes % (Manual) Monocytes % (Manual) Nucleated RBC % Seg Neutrophils # Seg Neutrophils # Man Lymphocytes # (Manual) Monocytes # (Manual) Eosinophils # (Manual) PT INR APTT D-Dimer Heparin Anti-Xa Level ABG pH POC ABG pCO2 POC ABG pO2 ABG pO2 ABG HCO3 ABG Hemoglobin ABG Oxyhemoglobin ABG Sodium ABG Potassium ABG Chloride ABG Glucose Carboxyhemoglobin Sodium 135 L Potassium 5.1 H Chloride Carbon Dioxide BUN 73 H Creatinine 4.0 H Glucose 112 H POC Glucose 109 H 111 H Lactic Acid Calcium 7.8 L Phosphorus Magnesium Ferritin Direct Bilirubin AST ALT Alkaline Phosphatase Lactate Dehydrogenase Total Creatine Kinase C-Reactive Protein Total Protein Albumin Triglycerides Arterial Blood Glucose Arterial Blood Ionized Calcium Urine Creatinine Urine Chloride Vancomycin Trough Coronavirus (PCR) Crossmatch 07/07/20 07/07/20 07/07/20 04:18 05:04 05:29 WBC RBC 2.46 L Hgb 7.6 L Hct 21.5 L MCHC 35 H RDW 16.5 H Lymph % (Auto) [place] % (Auto) Lymph # (Auto) [place] # (Auto) Eos # (Auto) Seg Neutrophils % Seg Neuts % (Manual) 82.0 H Lymphocytes % (Manual) Monocytes % (Manual) Nucleated RBC % 1.0 H Seg Neutrophils # Seg Neutrophils # Man Lymphocytes # (Manual) 1.1 L Monocytes # (Manual) Eosinophils # (Manual) PT INR APTT D-Dimer Heparin Anti-Xa Level ABG pH POC ABG pCO2 POC ABG pO2 79.6 L ABG pO2 ABG HCO3 ABG Hemoglobin 8.2 L ABG Oxyhemoglobin ABG Sodium 133.3 L ABG Potassium 4.7 H ABG Chloride ABG Glucose 135 H Carboxyhemoglobin Sodium Potassium Chloride Carbon Dioxide BUN Creatinine Glucose POC Glucose 112 H Lactic Acid Calcium Phosphorus Magnesium Ferritin Direct Bilirubin AST ALT Alkaline Phosphatase Lactate Dehydrogenase Total Creatine Kinase C-Reactive Protein Total Protein Albumin Triglycerides Arterial Blood Glucose 135 H Arterial Blood Ionized Calcium 4.5 L Urine Creatinine Urine Chloride Vancomycin Trough Coronavirus (PCR) Crossmatch 07/07/20 07/07/20 07/07/20 10:17 12:18 17:43 WBC RBC Hgb Hct MCHC RDW Lymph % (Auto) [place] % (Auto) Lymph # (Auto) [place] # (Auto) Eos # (Auto) Seg Neutrophils % Seg Neuts % (Manual) Lymphocytes % (Manual) Monocytes % (Manual) Nucleated RBC % Seg Neutrophils # Seg Neutrophils # Man Lymphocytes # (Manual) Monocytes # (Manual) Eosinophils # (Manual) PT INR APTT D-Dimer Heparin Anti-Xa Level ABG pH POC ABG pCO2 POC ABG pO2 ABG pO2 ABG HCO3 ABG Hemoglobin ABG Oxyhemoglobin ABG Sodium ABG Potassium ABG Chloride ABG Glucose Carboxyhemoglobin Sodium 136 L Potassium Chloride 96.8 L Carbon Dioxide BUN 82 H Creatinine 4.3 H Glucose 129 H POC Glucose 108 H 116 H Lactic Acid Calcium 7.8 L Phosphorus Magnesium Ferritin Direct Bilirubin AST ALT Alkaline Phosphatase Lactate Dehydrogenase Total Creatine Kinase C-Reactive Protein Total Protein Albumin Triglycerides Arterial Blood Glucose Arterial Blood Ionized Calcium Urine Creatinine Urine Chloride Vancomycin Trough Coronavirus (PCR) Crossmatch 07/07/20 07/08/20 07/08/20 23:31 04:00 04:00 WBC RBC 2.52 L Hgb 7.3 L Hct 22.2 L MCHC RDW 16.6 H Lymph % (Auto) 11.5 L [place] % (Auto) Lymph # (Auto) [place] # (Auto) Eos # (Auto) Seg Neutrophils % 78.2 H Seg Neuts % (Manual) Lymphocytes % (Manual) Monocytes % (Manual) Nucleated RBC % Seg Neutrophils # 8.0 H Seg Neutrophils # Man Lymphocytes # (Manual) Monocytes # (Manual) Eosinophils # (Manual) PT INR APTT D-Dimer Heparin Anti-Xa Level ABG pH POC ABG pCO2 POC ABG pO2 ABG pO2 ABG HCO3 ABG Hemoglobin ABG Oxyhemoglobin ABG Sodium ABG Potassium ABG Chloride ABG Glucose Carboxyhemoglobin Sodium 132 L Potassium 5.4 H Chloride 92.5 L Carbon Dioxide BUN 98 H Creatinine 4.9 H Glucose 105 H POC Glucose 117 H Lactic Acid Calcium 7.9 L Phosphorus Magnesium Ferritin Direct Bilirubin AST ALT Alkaline Phosphatase Lactate Dehydrogenase Total Creatine Kinase C-Reactive Protein Total Protein Albumin Triglycerides Arterial Blood Glucose Arterial Blood Ionized Calcium Urine Creatinine Urine Chloride Vancomycin Trough Coronavirus (PCR) Crossmatch 07/08/20 07/08/20 07/08/20 04:09 11:34 17:05 WBC RBC Hgb Hct MCHC RDW Lymph % (Auto) [place] % (Auto) Lymph # (Auto) [place] # (Auto) Eos # (Auto) Seg Neutrophils % Seg Neuts % (Manual) Lymphocytes % (Manual) Monocytes % (Manual) Nucleated RBC % Seg Neutrophils # Seg Neutrophils # Man Lymphocytes # (Manual) Monocytes # (Manual) Eosinophils # (Manual) PT INR APTT D-Dimer Heparin Anti-Xa Level ABG pH 7.220 L POC ABG pCO2 60.5 H POC ABG pO2 ABG pO2 ABG HCO3 ABG Hemoglobin 8.2 L ABG Oxyhemoglobin ABG Sodium 131.3 L ABG Potassium 5.2 H ABG Chloride ABG Glucose 103 H Carboxyhemoglobin Sodium Potassium Chloride Carbon Dioxide BUN Creatinine Glucose POC Glucose 140 H 125 H Lactic Acid Calcium Phosphorus Magnesium Ferritin Direct Bilirubin AST ALT Alkaline Phosphatase Lactate Dehydrogenase Total Creatine Kinase C-Reactive Protein Total Protein Albumin Triglycerides Arterial Blood Glucose 103 H Arterial Blood Ionized Calcium 4.3 L Urine Creatinine Urine Chloride Vancomycin Trough Coronavirus (PCR) Crossmatch 07/08/20 07/08/20 07/09/20 20:21 23:43 05:10 WBC RBC Hgb Hct MCHC RDW Lymph % (Auto) [place] % (Auto) Lymph # (Auto) [place] # (Auto) Eos # (Auto) Seg Neutrophils % Seg Neuts % (Manual) Lymphocytes % (Manual) Monocytes % (Manual) Nucleated RBC % Seg Neutrophils # Seg Neutrophils # Man Lymphocytes # (Manual) Monocytes # (Manual) Eosinophils # (Manual) PT INR APTT D-Dimer Heparin Anti-Xa Level ABG pH 7.20 L POC ABG pCO2 69.8 H POC ABG pO2 138.9 H 76.1 L ABG pO2 ABG HCO3 ABG Hemoglobin 11.9 L 8.4 L ABG Oxyhemoglobin ABG Sodium 133.1 L 131.2 L ABG Potassium 5.0 H 4.7 H ABG Chloride ABG Glucose 120 H 102 H Carboxyhemoglobin Sodium Potassium Chloride Carbon Dioxide BUN Creatinine Glucose POC Glucose 118 H Lactic Acid Calcium Phosphorus Magnesium Ferritin Direct Bilirubin AST ALT Alkaline Phosphatase Lactate Dehydrogenase Total Creatine Kinase C-Reactive Protein Total Protein Albumin Triglycerides Arterial Blood Glucose 120 H 102 H Arterial Blood Ionized Calcium 4.4 L 4.3 L Urine Creatinine Urine Chloride Vancomycin Trough Coronavirus (PCR) Crossmatch 07/09/20 07/09/20 07/09/20 11:51 17:04 21:00 WBC RBC Hgb Hct MCHC RDW Lymph % (Auto) [place] % (Auto) Lymph # (Auto) [place] # (Auto) Eos # (Auto) Seg Neutrophils % Seg Neuts % (Manual) Lymphocytes % (Manual) Monocytes % (Manual) Nucleated RBC % Seg Neutrophils # Seg Neutrophils # Man Lymphocytes # (Manual) Monocytes # (Manual) Eosinophils # (Manual) PT INR APTT D-Dimer Heparin Anti-Xa Level ABG pH POC ABG pCO2 POC ABG pO2 114.2 H ABG pO2 ABG HCO3 ABG Hemoglobin 7.8 L ABG Oxyhemoglobin ABG Sodium 132.3 L ABG Potassium 4.6 H ABG Chloride ABG Glucose Carboxyhemoglobin Sodium Potassium Chloride Carbon Dioxide BUN Creatinine Glucose POC Glucose 113 H 111 H Lactic Acid Calcium Phosphorus Magnesium Ferritin Direct Bilirubin AST ALT Alkaline Phosphatase Lactate Dehydrogenase Total Creatine Kinase C-Reactive Protein Total Protein Albumin Triglycerides Arterial Blood Glucose Arterial Blood Ionized Calcium 4.4 L Urine Creatinine Urine Chloride Vancomycin Trough Coronavirus (PCR) Crossmatch 07/10/20 07/10/20 07/10/20 03:49 03:55 03:55 WBC 18.1 H RBC 2.37 L Hgb 6.8 L Hct 20.7 L MCHC RDW 16.9 H Lymph % (Auto) [place] % (Auto) Lymph # (Auto) [place] # (Auto) Eos # (Auto) Seg Neutrophils % Seg Neuts % (Manual) 79.0 H Lymphocytes % (Manual) 10.0 L Monocytes % (Manual) Nucleated RBC % 1.0 H Seg Neutrophils # Seg Neutrophils # Man 14.3 H Lymphocytes # (Manual) Monocytes # (Manual) Eosinophils # (Manual) 0.7 H PT INR APTT D-Dimer Heparin Anti-Xa Level ABG pH POC ABG pCO2 POC ABG pO2 ABG pO2 ABG HCO3 ABG Hemoglobin 7.7 L ABG Oxyhemoglobin ABG Sodium 130.3 L ABG Potassium 4.6 H ABG Chloride ABG Glucose Carboxyhemoglobin Sodium 136 L Potassium Chloride 96.0 L Carbon Dioxide BUN 76 H Creatinine 3.6 H Glucose POC Glucose Lactic Acid Calcium 7.4 L Phosphorus Magnesium Ferritin Direct Bilirubin AST ALT Alkaline Phosphatase Lactate Dehydrogenase Total Creatine Kinase C-Reactive Protein Total Protein Albumin Triglycerides Arterial Blood Glucose Arterial Blood Ionized Calcium 4.2 L Urine Creatinine Urine Chloride Vancomycin Trough Coronavirus (PCR) Crossmatch 07/10/20 07/11/20 07/11/20 13:24 04:08 06:52 WBC 26.0 H RBC 2.91 L Hgb 8.2 L Hct 24.8 L MCHC RDW 17.2 H Lymph % (Auto) [place] % (Auto) Lymph # (Auto) [place] # (Auto) Eos # (Auto) Seg Neutrophils % Seg Neuts % (Manual) Lymphocytes % (Manual) 1.0 L Monocytes % (Manual) 11.0 H Nucleated RBC % Seg Neutrophils # Seg Neutrophils # Man 16.9 H Lymphocytes # (Manual) 0.3 L Monocytes # (Manual) 2.9 H Eosinophils # (Manual) 1.0 H PT INR APTT D-Dimer Heparin Anti-Xa Level ABG pH POC ABG pCO2 POC ABG pO2 ABG pO2 ABG HCO3 ABG Hemoglobin 8.5 L ABG Oxyhemoglobin ABG Sodium 130.6 L ABG Potassium 4.9 H ABG Chloride ABG Glucose 105 H Carboxyhemoglobin Sodium Potassium Chloride Carbon Dioxide BUN Creatinine Glucose POC Glucose Lactic Acid Calcium Phosphorus Magnesium Ferritin Direct Bilirubin AST ALT Alkaline Phosphatase Lactate Dehydrogenase Total Creatine Kinase C-Reactive Protein Total Protein Albumin Triglycerides Arterial Blood Glucose 105 H Arterial Blood Ionized Calcium 4.1 L Urine Creatinine Urine Chloride Vancomycin Trough Coronavirus (PCR) Crossmatch See Detail 07/11/20 07/11/20 07/11/20 06:52 08:48 11:39 WBC RBC Hgb Hct MCHC RDW Lymph % (Auto) [place] % (Auto) Lymph # (Auto) [place] # (Auto) Eos # (Auto) Seg Neutrophils % Seg Neuts % (Manual) Lymphocytes % (Manual) Monocytes % (Manual) Nucleated RBC % Seg Neutrophils # Seg Neutrophils # Man Lymphocytes # (Manual) Monocytes # (Manual) Eosinophils # (Manual) PT INR APTT D-Dimer Heparin Anti-Xa Level ABG pH POC ABG pCO2 POC ABG pO2 ABG pO2 ABG HCO3 ABG Hemoglobin ABG Oxyhemoglobin ABG Sodium ABG Potassium ABG Chloride ABG Glucose Carboxyhemoglobin Sodium 133 L 134 L Potassium 5.3 H Chloride 93.5 L 94.8 L Carbon Dioxide BUN 101 H 99 H Creatinine 4.5 H 4.6 H Glucose 102 H POC Glucose 116 H Lactic Acid Calcium 7.8 L 7.6 L Phosphorus Magnesium Ferritin Direct Bilirubin AST ALT Alkaline Phosphatase Lactate Dehydrogenase Total Creatine Kinase C-Reactive Protein Total Protein Albumin Triglycerides Arterial Blood Glucose Arterial Blood Ionized Calcium Urine Creatinine Urine Chloride Vancomycin Trough Coronavirus (PCR) Crossmatch 07/11/20 07/12/20 07/12/20 17:23 00:04 03:20 WBC RBC Hgb Hct MCHC RDW Lymph % (Auto) [place] % (Auto) Lymph # (Auto) [place] # (Auto) Eos # (Auto) Seg Neutrophils % Seg Neuts % (Manual) Lymphocytes % (Manual) Monocytes % (Manual) Nucleated RBC % Seg Neutrophils # Seg Neutrophils # Man Lymphocytes # (Manual) Monocytes # (Manual) Eosinophils # (Manual) PT INR APTT D-Dimer Heparin Anti-Xa Level ABG pH POC ABG pCO2 49.1 H POC ABG pO2 130.3 H ABG pO2 ABG HCO3 ABG Hemoglobin 8.7 L ABG Oxyhemoglobin ABG Sodium 135.2 L ABG Potassium 4.7 H ABG Chloride ABG Glucose 128 H Carboxyhemoglobin Sodium Potassium Chloride Carbon Dioxide BUN Creatinine Glucose POC Glucose 142 H 113 H Lactic Acid Calcium Phosphorus Magnesium Ferritin Direct Bilirubin AST ALT Alkaline Phosphatase Lactate Dehydrogenase Total Creatine Kinase C-Reactive Protein Total Protein Albumin Triglycerides Arterial Blood Glucose 128 H Arterial Blood Ionized Calcium 4.4 L Urine Creatinine Urine Chloride Vancomycin Trough Coronavirus (PCR) Crossmatch 07/12/20 07/12/20 07/12/20 03:40 03:40 04:00 WBC 24.3 H RBC 2.83 L Hgb 8.0 L Hct 24.9 L MCHC RDW 17.7 H Lymph % (Auto) 5.6 L [place] % (Auto) 7.4 H Lymph # (Auto) [place] # (Auto) 1.8 H Eos # (Auto) 0.7 H Seg Neutrophils % 83.9 H Seg Neuts % (Manual) Lymphocytes % (Manual) Monocytes % (Manual) Nucleated RBC % Seg Neutrophils # 20.4 H Seg Neutrophils # Man Lymphocytes # (Manual) Monocytes # (Manual) Eosinophils # (Manual) PT INR APTT D-Dimer Heparin Anti-Xa Level ABG pH POC ABG pCO2 POC ABG pO2 ABG pO2 ABG HCO3 ABG Hemoglobin ABG Oxyhemoglobin ABG Sodium ABG Potassium ABG Chloride ABG Glucose Carboxyhemoglobin Sodium 134 L Potassium Chloride 95.5 L Carbon Dioxide BUN 79 H Creatinine 3.7 H Glucose 127 H POC Glucose Lactic Acid Calcium 7.8 L Phosphorus Magnesium Ferritin Direct Bilirubin AST ALT Alkaline Phosphatase Lactate Dehydrogenase Total Creatine Kinase C-Reactive Protein Total Protein Albumin Triglycerides 246 H Arterial Blood Glucose Arterial Blood Ionized Calcium Urine Creatinine Urine Chloride Vancomycin Trough Coronavirus (PCR) Crossmatch 07/12/20 07/12/20 07/12/20 05:48 11:50 17:29 WBC RBC Hgb Hct MCHC RDW Lymph % (Auto) [place] % (Auto) Lymph # (Auto) [place] # (Auto) Eos # (Auto) Seg Neutrophils % Seg Neuts % (Manual) Lymphocytes % (Manual) Monocytes % (Manual) Nucleated RBC % Seg Neutrophils # Seg Neutrophils # Man Lymphocytes # (Manual) Monocytes # (Manual) Eosinophils # (Manual) PT INR APTT D-Dimer Heparin Anti-Xa Level ABG pH POC ABG pCO2 POC ABG pO2 ABG pO2 ABG HCO3 ABG Hemoglobin ABG Oxyhemoglobin ABG Sodium ABG Potassium ABG Chloride ABG Glucose Carboxyhemoglobin Sodium Potassium Chloride Carbon Dioxide BUN Creatinine Glucose POC Glucose 136 H 113 H 110 H Lactic Acid Calcium Phosphorus Magnesium Ferritin Direct Bilirubin AST ALT Alkaline Phosphatase Lactate Dehydrogenase Total Creatine Kinase C-Reactive Protein Total Protein Albumin Triglycerides Arterial Blood Glucose Arterial Blood Ionized Calcium Urine Creatinine Urine Chloride Vancomycin Trough Coronavirus (PCR) Crossmatch 07/12/20 07/13/20 07/13/20 23:43 03:11 06:59 WBC RBC Hgb Hct MCHC RDW Lymph % (Auto) [place] % (Auto) Lymph # (Auto) [place] # (Auto) Eos # (Auto) Seg Neutrophils % Seg Neuts % (Manual) Lymphocytes % (Manual) Monocytes % (Manual) Nucleated RBC % Seg Neutrophils # Seg Neutrophils # Man Lymphocytes # (Manual) Monocytes # (Manual) Eosinophils # (Manual) PT INR APTT D-Dimer Heparin Anti-Xa Level ABG pH POC ABG pCO2 49.0 H POC ABG pO2 69.6 L ABG pO2 ABG HCO3 ABG Hemoglobin 8.5 L ABG Oxyhemoglobin 90.5 L ABG Sodium 133.6 L ABG Potassium 5.1 H ABG Chloride ABG Glucose 104 H Carboxyhemoglobin Sodium 133 L Potassium 5.7 H Chloride 96.3 L Carbon Dioxide 20 L D BUN 102 H Creatinine 4.4 H Glucose 101 H POC Glucose 120 H Lactic Acid Calcium 7.9 L Phosphorus Magnesium Ferritin Direct Bilirubin AST 61 H ALT 85 H Alkaline Phosphatase 144 H Lactate Dehydrogenase Total Creatine Kinase C-Reactive Protein Total Protein 5.4 L Albumin 2.0 L Triglycerides Arterial Blood Glucose 104 H Arterial Blood Ionized Calcium 4.3 L Urine Creatinine Urine Chloride Vancomycin Trough Coronavirus (PCR) Crossmatch 07/13/20 07/13/20 07/13/20 08:48 12:14 15:12 WBC 27.5 H RBC 3.03 L Hgb 8.7 L Hct 27.0 L MCHC RDW 18.0 H Lymph % (Auto) [place] % (Auto) Lymph # (Auto) [place] # (Auto) Eos # (Auto) Seg Neutrophils % Seg Neuts % (Manual) Lymphocytes % (Manual) Monocytes % (Manual) Nucleated RBC % Seg Neutrophils # Seg Neutrophils # Man Lymphocytes # (Manual) Monocytes # (Manual) Eosinophils # (Manual) PT INR APTT D-Dimer Heparin Anti-Xa Level ABG pH POC ABG pCO2 POC ABG pO2 ABG pO2 ABG HCO3 ABG Hemoglobin ABG Oxyhemoglobin ABG Sodium ABG Potassium ABG Chloride ABG Glucose Carboxyhemoglobin Sodium Potassium 5.5 H Chloride Carbon Dioxide BUN 88 H Creatinine 3.8 H Glucose 133 H POC Glucose 134 H Lactic Acid Calcium 7.5 L Phosphorus Magnesium Ferritin Direct Bilirubin AST ALT Alkaline Phosphatase Lactate Dehydrogenase Total Creatine Kinase C-Reactive Protein Total Protein Albumin Triglycerides Arterial Blood Glucose Arterial Blood Ionized Calcium Urine Creatinine Urine Chloride Vancomycin Trough Coronavirus (PCR) Crossmatch 07/13/20 07/13/20 07/13/20 16:46 16:47 18:46 WBC RBC Hgb 7.4 L Hct 22.1 L MCHC RDW Lymph % (Auto) [place] % (Auto) Lymph # (Auto) [place] # (Auto) Eos # (Auto) Seg Neutrophils % Seg Neuts % (Manual) Lymphocytes % (Manual) Monocytes % (Manual) Nucleated RBC % Seg Neutrophils # Seg Neutrophils # Man Lymphocytes # (Manual) Monocytes # (Manual) Eosinophils # (Manual) PT INR APTT D-Dimer Heparin Anti-Xa Level ABG pH POC ABG pCO2 POC ABG pO2 ABG pO2 ABG HCO3 ABG Hemoglobin ABG Oxyhemoglobin ABG Sodium ABG Potassium ABG Chloride ABG Glucose Carboxyhemoglobin Sodium Potassium Chloride Carbon Dioxide BUN Creatinine Glucose POC Glucose 118 H Lactic Acid Calcium Phosphorus Magnesium Ferritin Direct Bilirubin AST ALT Alkaline Phosphatase Lactate Dehydrogenase Total Creatine Kinase C-Reactive Protein Total Protein Albumin Triglycerides Arterial Blood Glucose Arterial Blood Ionized Calcium Urine Creatinine Urine Chloride Vancomycin Trough Coronavirus (PCR) Crossmatch See Detail 07/13/20 07/14/20 07/14/20 23:34 04:25 12:21 WBC RBC Hgb Hct MCHC RDW Lymph % (Auto) [place] % (Auto) Lymph # (Auto) [place] # (Auto) Eos # (Auto) Seg Neutrophils % Seg Neuts % (Manual) Lymphocytes % (Manual) Monocytes % (Manual) Nucleated RBC % Seg Neutrophils # Seg Neutrophils # Man Lymphocytes # (Manual) Monocytes # (Manual) Eosinophils # (Manual) PT INR APTT D-Dimer Heparin Anti-Xa Level ABG pH POC ABG pCO2 POC ABG pO2 ABG pO2 ABG HCO3 ABG Hemoglobin 8.9 L ABG Oxyhemoglobin ABG Sodium 133.1 L ABG Potassium 4.7 H ABG Chloride ABG Glucose 113 H Carboxyhemoglobin Sodium Potassium Chloride Carbon Dioxide BUN Creatinine Glucose POC Glucose 109 H 109 H Lactic Acid Calcium Phosphorus Magnesium Ferritin Direct Bilirubin AST ALT Alkaline Phosphatase Lactate Dehydrogenase Total Creatine Kinase C-Reactive Protein Total Protein Albumin Triglycerides Arterial Blood Glucose 113 H Arterial Blood Ionized Calcium 4.4 L Urine Creatinine Urine Chloride Vancomycin Trough Coronavirus (PCR) Crossmatch 07/14/20 07/14/20 07/14/20 16:44 16:44 20:20 WBC 30.1 H RBC 2.60 L Hgb 7.4 L 5.6 L* Hct 23.0 L 18.1 L* MCHC RDW 18.0 H Lymph % (Auto) [place] % (Auto) Lymph # (Auto) [place] # (Auto) Eos # (Auto) Seg Neutrophils % Seg Neuts % (Manual) 78.0 H Lymphocytes % (Manual) 5.0 L Monocytes % (Manual) Nucleated RBC % Seg Neutrophils # Seg Neutrophils # Man 23.5 H Lymphocytes # (Manual) Monocytes # (Manual) 0.9 H Eosinophils # (Manual) PT 15.6 H INR 1.26 H APTT D-Dimer Heparin Anti-Xa Level ABG pH POC ABG pCO2 POC ABG pO2 ABG pO2 ABG HCO3 ABG Hemoglobin ABG Oxyhemoglobin ABG Sodium ABG Potassium ABG Chloride ABG Glucose Carboxyhemoglobin Sodium Potassium Chloride Carbon Dioxide BUN Creatinine Glucose POC Glucose Lactic Acid Calcium Phosphorus Magnesium Ferritin Direct Bilirubin AST ALT Alkaline Phosphatase Lactate Dehydrogenase Total Creatine Kinase C-Reactive Protein Total Protein Albumin Triglycerides Arterial Blood Glucose Arterial Blood Ionized Calcium Urine Creatinine Urine Chloride Vancomycin Trough Coronavirus (PCR) Crossmatch 07/14/20 07/14/20 07/15/20 21:19 23:45 04:13 WBC RBC Hgb Hct MCHC RDW Lymph % (Auto) [place] % (Auto) Lymph # (Auto) [place] # (Auto) Eos # (Auto) Seg Neutrophils % Seg Neuts % (Manual) Lymphocytes % (Manual) Monocytes % (Manual) Nucleated RBC % Seg Neutrophils # Seg Neutrophils # Man Lymphocytes # (Manual) Monocytes # (Manual) Eosinophils # (Manual) PT INR APTT D-Dimer Heparin Anti-Xa Level ABG pH POC ABG pCO2 POC ABG pO2 ABG pO2 ABG HCO3 ABG Hemoglobin 5.8 L 6.0 L ABG Oxyhemoglobin 93.8 L ABG Sodium 132.2 L 130.3 L ABG Potassium 5.5 H 5.8 H ABG Chloride ABG Glucose 118 H 122 H Carboxyhemoglobin Sodium Potassium Chloride Carbon Dioxide BUN Creatinine Glucose POC Glucose 126 H Lactic Acid Calcium Phosphorus Magnesium Ferritin Direct Bilirubin AST ALT Alkaline Phosphatase Lactate Dehydrogenase Total Creatine Kinase C-Reactive Protein Total Protein Albumin Triglycerides Arterial Blood Glucose 118 H 122 H Arterial Blood Ionized Calcium 4.3 L 4.2 L Urine Creatinine Urine Chloride Vancomycin Trough Coronavirus (PCR) Crossmatch 07/15/20 07/15/20 07/15/20 08:21 08:21 08:38 WBC 45.5 H* RBC 2.42 L Hgb 7.1 L Hct 21.5 L MCHC RDW 16.5 H Lymph % (Auto) [place] % (Auto) Lymph # (Auto) [place] # (Auto) Eos # (Auto) Seg Neutrophils % Seg Neuts % (Manual) 89.0 H Lymphocytes % (Manual) 7.0 L Monocytes % (Manual) Nucleated RBC % Seg Neutrophils # Seg Neutrophils # Man 40.5 H Lymphocytes # (Manual) Monocytes # (Manual) 1.8 H Eosinophils # (Manual) PT 17.6 H INR 1.46 H APTT D-Dimer Heparin Anti-Xa Level ABG pH POC ABG pCO2 POC ABG pO2 ABG pO2 ABG HCO3 ABG Hemoglobin ABG Oxyhemoglobin ABG Sodium ABG Potassium ABG Chloride ABG Glucose Carboxyhemoglobin Sodium 131 L Potassium 6.0 H Chloride 94.6 L Carbon Dioxide 20 L BUN 116 H Creatinine 4.6 H Glucose 123 H POC Glucose Lactic Acid Calcium 7.6 L Phosphorus Magnesium Ferritin Direct Bilirubin AST ALT Alkaline Phosphatase Lactate Dehydrogenase Total Creatine Kinase C-Reactive Protein Total Protein Albumin Triglycerides Arterial Blood Glucose Arterial Blood Ionized Calcium Urine Creatinine Urine Chloride Vancomycin Trough Coronavirus (PCR) Crossmatch 07/15/20 07/15/20 07/15/20 11:29 17:23 18:52 WBC RBC Hgb Hct MCHC RDW Lymph % (Auto) [place] % (Auto) Lymph # (Auto) [place] # (Auto) Eos # (Auto) Seg Neutrophils % Seg Neuts % (Manual) Lymphocytes % (Manual) Monocytes % (Manual) Nucleated RBC % Seg Neutrophils # Seg Neutrophils # Man Lymphocytes # (Manual) Monocytes # (Manual) Eosinophils # (Manual) PT INR APTT D-Dimer Heparin Anti-Xa Level ABG pH POC ABG pCO2 POC ABG pO2 ABG pO2 ABG HCO3 ABG Hemoglobin ABG Oxyhemoglobin ABG Sodium ABG Potassium ABG Chloride ABG Glucose Carboxyhemoglobin Sodium Potassium Chloride 97.9 L Carbon Dioxide BUN 78 H Creatinine 3.1 H Glucose 114 H POC Glucose 181 H 120 H Lactic Acid Calcium 7.3 L Phosphorus Magnesium Ferritin Direct Bilirubin AST ALT Alkaline Phosphatase Lactate Dehydrogenase Total Creatine Kinase C-Reactive Protein Total Protein Albumin Triglycerides Arterial Blood Glucose Arterial Blood Ionized Calcium Urine Creatinine Urine Chloride Vancomycin Trough Coronavirus (PCR) Crossmatch 07/15/20 07/16/20 07/16/20 18:52 01:10 03:38 WBC RBC Hgb 9.9 L 8.5 L Hct 29.8 L D 24.7 L MCHC RDW Lymph % (Auto) [place] % (Auto) Lymph # (Auto) [place] # (Auto) Eos # (Auto) Seg Neutrophils % Seg Neuts % (Manual) Lymphocytes % (Manual) Monocytes % (Manual) Nucleated RBC % Seg Neutrophils # Seg Neutrophils # Man Lymphocytes # (Manual) Monocytes # (Manual) Eosinophils # (Manual) PT INR APTT D-Dimer Heparin Anti-Xa Level ABG pH 7.314 L POC ABG pCO2 48.5 H POC ABG pO2 58.9 L ABG pO2 ABG HCO3 ABG Hemoglobin 8.7 L ABG Oxyhemoglobin 86.7 L ABG Sodium 132.7 L ABG Potassium 5.2 H ABG Chloride ABG Glucose 99 H Carboxyhemoglobin Sodium Potassium Chloride Carbon Dioxide BUN Creatinine Glucose POC Glucose Lactic Acid Calcium Phosphorus Magnesium Ferritin Direct Bilirubin AST ALT Alkaline Phosphatase Lactate Dehydrogenase Total Creatine Kinase C-Reactive Protein Total Protein Albumin Triglycerides Arterial Blood Glucose 99 H Arterial Blood Ionized Calcium 3.9 L Urine Creatinine Urine Chloride Vancomycin Trough Coronavirus (PCR) Crossmatch 07/16/20 07/16/20 07/16/20 04:28 04:28 07:29 WBC 48.9 H* RBC 2.86 L Hgb 8.6 L 7.9 L Hct 25.4 L 24.4 L MCHC RDW 15.6 H Lymph % (Auto) [place] % (Auto) Lymph # (Auto) [place] # (Auto) Eos # (Auto) Seg Neutrophils % Seg Neuts % (Manual) Lymphocytes % (Manual) Monocytes % (Manual) Nucleated RBC % Seg Neutrophils # Seg Neutrophils # Man Lymphocytes # (Manual) Monocytes # (Manual) Eosinophils # (Manual) PT INR APTT D-Dimer Heparin Anti-Xa Level ABG pH POC ABG pCO2 POC ABG pO2 ABG pO2 ABG HCO3 ABG Hemoglobin ABG Oxyhemoglobin ABG Sodium ABG Potassium ABG Chloride ABG Glucose Carboxyhemoglobin Sodium 136 L Potassium 5.4 H Chloride 95.0 L Carbon Dioxide BUN 85 H Creatinine 3.4 H Glucose 66 L POC Glucose Lactic Acid Calcium 6.8 L Phosphorus Magnesium Ferritin Direct Bilirubin AST ALT Alkaline Phosphatase Lactate Dehydrogenase Total Creatine Kinase C-Reactive Protein Total Protein Albumin Triglycerides Arterial Blood Glucose Arterial Blood Ionized Calcium Urine Creatinine Urine Chloride Vancomycin Trough Coronavirus (PCR) Crossmatch 07/16/20 07/16/20 07/16/20 11:52 18:06 18:08 WBC RBC Hgb 7.4 L Hct 22.5 L MCHC RDW Lymph % (Auto) [place] % (Auto) Lymph # (Auto) [place] # (Auto) Eos # (Auto) Seg Neutrophils % Seg Neuts % (Manual) Lymphocytes % (Manual) Monocytes % (Manual) Nucleated RBC % Seg Neutrophils # Seg Neutrophils # Man Lymphocytes # (Manual) Monocytes # (Manual) Eosinophils # (Manual) PT INR APTT D-Dimer Heparin Anti-Xa Level ABG pH POC ABG pCO2 POC ABG pO2 ABG pO2 ABG HCO3 ABG Hemoglobin ABG Oxyhemoglobin ABG Sodium ABG Potassium ABG Chloride ABG Glucose Carboxyhemoglobin Sodium Potassium Chloride Carbon Dioxide BUN Creatinine Glucose POC Glucose 124 H 108 H Lactic Acid Calcium Phosphorus Magnesium Ferritin Direct Bilirubin AST ALT Alkaline Phosphatase Lactate Dehydrogenase Total Creatine Kinase C-Reactive Protein Total Protein Albumin Triglycerides Arterial Blood Glucose Arterial Blood Ionized Calcium Urine Creatinine Urine Chloride Vancomycin Trough Coronavirus (PCR) Crossmatch 07/17/20 07/17/20 07/17/20 03:27 15:25 15:25 WBC 46.2 H* RBC 2.05 L Hgb 6.1 L Hct 18.4 L* MCHC RDW 15.6 H Lymph % (Auto) [place] % (Auto) Lymph # (Auto) [place] # (Auto) Eos # (Auto) Seg Neutrophils % Seg Neuts % (Manual) 87.0 H Lymphocytes % (Manual) 3.0 L Monocytes % (Manual) Nucleated RBC % Seg Neutrophils # Seg Neutrophils # Man 40.2 H Lymphocytes # (Manual) Monocytes # (Manual) 3.2 H Eosinophils # (Manual) PT 18.2 H INR 1.52 H APTT D-Dimer Heparin Anti-Xa Level ABG pH 7.313 L POC ABG pCO2 50.9 H POC ABG pO2 ABG pO2 ABG HCO3 ABG Hemoglobin 7.5 L ABG Oxyhemoglobin ABG Sodium 131.8 L ABG Potassium 4.6 H ABG Chloride ABG Glucose 105 H Carboxyhemoglobin Sodium Potassium Chloride Carbon Dioxide BUN Creatinine Glucose POC Glucose Lactic Acid Calcium Phosphorus Magnesium Ferritin Direct Bilirubin AST ALT Alkaline Phosphatase Lactate Dehydrogenase Total Creatine Kinase C-Reactive Protein Total Protein Albumin Triglycerides Arterial Blood Glucose 105 H Arterial Blood Ionized Calcium 3.9 L Urine Creatinine Urine Chloride Vancomycin Trough Coronavirus (PCR) Crossmatch 07/17/20 07/18/20 07/18/20 Unknown 03:10 05:06 WBC 37.9 H RBC 2.91 L Hgb 8.5 L Hct 25.6 L D MCHC RDW Lymph % (Auto) [place] % (Auto) Lymph # (Auto) [place] # (Auto) Eos # (Auto) Seg Neutrophils % Seg Neuts % (Manual) Lymphocytes % (Manual) Monocytes % (Manual) Nucleated RBC % Seg Neutrophils # Seg Neutrophils # Man Lymphocytes # (Manual) Monocytes # (Manual) Eosinophils # (Manual) PT INR APTT D-Dimer Heparin Anti-Xa Level ABG pH POC ABG pCO2 POC ABG pO2 114.9 H ABG pO2 ABG HCO3 ABG Hemoglobin 8.6 L ABG Oxyhemoglobin ABG Sodium 130.6 L ABG Potassium 4.9 H ABG Chloride ABG Glucose Carboxyhemoglobin Sodium Potassium Chloride Carbon Dioxide BUN Creatinine Glucose POC Glucose Lactic Acid Calcium Phosphorus Magnesium Ferritin Direct Bilirubin AST ALT Alkaline Phosphatase Lactate Dehydrogenase Total Creatine Kinase C-Reactive Protein Total Protein Albumin Triglycerides Arterial Blood Glucose Arterial Blood Ionized Calcium 3.8 L Urine Creatinine Urine Chloride Vancomycin Trough Coronavirus (PCR) Crossmatch See Detail 07/18/20 07/19/20 07/19/20 05:06 00:06 03:57 WBC RBC Hgb Hct MCHC RDW Lymph % (Auto) [place] % (Auto) Lymph # (Auto) [place] # (Auto) Eos # (Auto) Seg Neutrophils % Seg Neuts % (Manual) Lymphocytes % (Manual) Monocytes % (Manual) Nucleated RBC % Seg Neutrophils # Seg Neutrophils # Man Lymphocytes # (Manual) Monocytes # (Manual) Eosinophils # (Manual) PT INR APTT D-Dimer Heparin Anti-Xa Level ABG pH POC ABG pCO2 POC ABG pO2 ABG pO2 ABG HCO3 ABG Hemoglobin 8.6 L ABG Oxyhemoglobin ABG Sodium 130.4 L ABG Potassium ABG Chloride ABG Glucose Carboxyhemoglobin Sodium Potassium 5.4 H Chloride Carbon Dioxide BUN 79 H Creatinine 3.2 H Glucose POC Glucose 69 L Lactic Acid Calcium 6.9 L Phosphorus Magnesium Ferritin Direct Bilirubin AST ALT 58 H Alkaline Phosphatase Lactate Dehydrogenase Total Creatine Kinase C-Reactive Protein Total Protein 4.3 L D Albumin 1.7 L Triglycerides 306 H Arterial Blood Glucose Arterial Blood Ionized Calcium 3.9 L Urine Creatinine Urine Chloride Vancomycin Trough Coronavirus (PCR) Crossmatch 07/19/20 07/19/20 07/19/20 05:22 09:15 09:15 WBC 32.5 H RBC 2.57 L Hgb 7.8 L Hct 22.8 L MCHC RDW 15.3 H Lymph % (Auto) [place] % (Auto) Lymph # (Auto) [place] # (Auto) Eos # (Auto) Seg Neutrophils % Seg Neuts % (Manual) Lymphocytes % (Manual) Monocytes % (Manual) Nucleated RBC % Seg Neutrophils # Seg Neutrophils # Man Lymphocytes # (Manual) Monocytes # (Manual) Eosinophils # (Manual) PT INR APTT D-Dimer Heparin Anti-Xa Level ABG pH POC ABG pCO2 POC ABG pO2 ABG pO2 ABG HCO3 ABG Hemoglobin ABG Oxyhemoglobin ABG Sodium ABG Potassium ABG Chloride ABG Glucose Carboxyhemoglobin Sodium 135 L Potassium Chloride 96.3 L Carbon Dioxide BUN 61 H Creatinine 2.8 H Glucose POC Glucose 64 L Lactic Acid Calcium 6.8 L Phosphorus Magnesium Ferritin Direct Bilirubin AST 54 H ALT 65 H Alkaline Phosphatase Lactate Dehydrogenase Total Creatine Kinase C-Reactive Protein Total Protein 4.3 L Albumin 1.8 L Triglycerides Arterial Blood Glucose Arterial Blood Ionized Calcium Urine Creatinine Urine Chloride Vancomycin Trough Coronavirus (PCR) Crossmatch Chest x-ray: pending Allied health notes reviewed: nursing
[2020-07-19] MEDS: AMIODARONE 200 MG TAB PO SCH ×2 (14:53→21:56)
--- NOTE | 2020-07-19 14:55 | Hem/Onc Progress Note ---
Subjective Interval history: televisit via [facility] nurse interviewed because covid19 pt f/u for anemia and high WBC 59yo obese man with ANAMIKA admitted one month ago for fatigue, hypoxia found to have covid19 infection throughout his hosp stay he has had WBC>30, now 40-50 needed to start HD had GI tract bleeding past few days-->received RBC 07/17/20 no visible bleeding now DATA REVIEWED BELOW apt inr 1.4-1.5 IMPRESSION recent critical illness attrib to COvid19 infection high WBC likely 'reactive" but CML is another possibility severe anemia requiring transfusions, likely due to acute illness and GI tract bleeding ARF requiring HD coagulopathy-- liver dysfunction--.bleedinbg tendency REC: RBC transfusions as needed for severe anemia or visible bleeding end of life discussion may be appropriate, even though aggressive interventions planned awaiting BCR-ABL mutation testing Laboratory Last Values WBC 32.5 K/mm3 (4.5-11.0) H 07/19/20 09:15 Hgb 7.8 gm/dl (11.8-15.2) L 07/19/20 09:15 Hct 22.8 % (35.5-45.6) L 07/19/20 09:15 Plt Count 196 K/mm3 (140-440) 07/19/20 09:15 PT 18.2 Sec. (12.2-14.9) H 07/17/20 15:25 INR 1.52 (0.87-1.13) H 07/17/20 15:25 APTT 28.5 Sec. (24.2-36.6) 06/26/20 05:47 Fibrinogen 419 mg/dl (211-480) 07/15/20 08:21 Direct Bilirubin 0.5 mg/dL (0-0.2) H 07/05/20 08:21 Indirect Bilirubin 0.1 mg/dL 07/05/20 08:21 AST 54 units/L (5-40) H 07/19/20 09:15 ALT 65 units/L (7-56) H 07/19/20 09:15 Alkaline Phosphatase 116 units/L (35-129) 07/19/20 09:15 Lactate Dehydrogenase 525 units/L (91-180) H 07/03/20 14:50 Crossmatch See Detail 07/17/20 Unknown Objective - Constitutional Vitals: Last Vital Signs Temp 97.3 F L 07/19/20 12:00 Pulse 72 07/19/20 12:01 Resp 11 L 07/19/20 12:01 BP 117/45 07/19/20 11:45 Pulse Ox 97 07/19/20 12:01 - Labs Lab Results: Laboratory Results - last 24 hr 07/18/20 07/18/20 07/19/20 12:41 17:50 00:06 WBC RBC Hgb Hct MCV MCH MCHC RDW Plt Count ABG pH POC ABG pCO2 POC ABG pO2 POC ABG HCO3 POC ABG Base Excess ABG Hemoglobin ABG Oxyhemoglobin ABG Methemoglobin ABG Sodium ABG Potassium ABG Chloride ABG Glucose Carboxyhemoglobin FiO2 Sodium Potassium Chloride Carbon Dioxide Anion Gap BUN Creatinine Estimated GFR BUN/Creatinine Ratio Glucose POC Glucose 77 102 69 L Calcium Total Bilirubin AST ALT Alkaline Phosphatase Total Protein Albumin Albumin/Globulin Ratio Arterial Blood Glucose Arterial Blood Ionized Calcium 07/19/20 07/19/20 07/19/20 03:57 05:22 09:15 WBC 32.5 H RBC 2.57 L Hgb 7.8 L Hct 22.8 L MCV 89 MCH 30 MCHC 34 RDW 15.3 H Plt Count 196 ABG pH 7.374 POC ABG pCO2 40.3 POC ABG pO2 85.8 POC ABG HCO3 23 POC ABG Base Excess -2.1 ABG Hemoglobin 8.6 L ABG Oxyhemoglobin 95 ABG Methemoglobin 0.3 ABG Sodium 130.4 L ABG Potassium 4.1 ABG Chloride 100.0 ABG Glucose 77 Carboxyhemoglobin 1.0 FiO2 50 Sodium Potassium Chloride Carbon Dioxide Anion Gap BUN Creatinine Estimated GFR BUN/Creatinine Ratio Glucose POC Glucose 64 L Calcium Total Bilirubin AST ALT Alkaline Phosphatase Total Protein Albumin Albumin/Globulin Ratio Arterial Blood Glucose 77 Arterial Blood Ionized Calcium 3.9 L 07/19/20 09:15 WBC RBC Hgb Hct MCV MCH MCHC RDW Plt Count ABG pH POC ABG pCO2 POC ABG pO2 POC ABG HCO3 POC ABG Base Excess ABG Hemoglobin ABG Oxyhemoglobin ABG Methemoglobin ABG Sodium ABG Potassium ABG Chloride ABG Glucose Carboxyhemoglobin FiO2 Sodium 135 L Potassium 4.2 D Chloride 96.3 L Carbon Dioxide 25 Anion Gap 18 BUN 61 H Creatinine 2.8 H Estimated GFR 28 BUN/Creatinine Ratio 22 Glucose 87 POC Glucose Calcium 6.8 L Total Bilirubin 0.40 AST 54 H ALT 65 H Alkaline Phosphatase 116 Total Protein 4.3 L Albumin 1.8 L Albumin/Globulin Ratio 0.7 Arterial Blood Glucose Arterial Blood Ionized Calcium Medications & Allergies - Medications Allergies/Adverse Reactions: Allergies No Known Allergies Allergy (Unverified 06/17/20 14:24) Home Medications: Home Medications Medication Instructions Recorded Confirmed Last Taken Type Losartan/Hydrochlorothiazide 1 each PO QDAY 06/19/20 06/19/20 Unknown History [Losartan-Hctz 100-25 mg Tab] amLODIPine [Norvasc] 5 mg PO DAILY 06/19/20 06/19/20 Unknown History Active Medications: Generic Name Dose Route Start Last Admin Trade Name Freq PRN Reason Stop Dose Admin Acetaminophen 650 mg 06/17/20 14:17 07/03/20 09:16 Acetaminophen 325 Mg Tab PO 650 mg Q4H PRN Administration Pain MILD(1-3)/Fever >100.5/ROBERTS Albuterol 2.5 mg 07/19/20 12:15 Albuterol 2.5 Mg/3 Ml Nebu IH Q6HRT PRN Shortness Of Breath Amiodarone HCl 200 mg 07/19/20 14:00 Amiodarone 200 Mg Tab PO BID CONNOR Lipase/Protease/Amylase 1 each 06/19/20 12:15 Lipase 10,500/Protease 25,000/Amylase 43,750 (Units) Dr Shad FEEDTUBE PRN PRN For Clogged Feeding Tube Ascorbic Acid 250 mg 06/17/20 22:00 07/19/20 11:06 Ascorbic Acid 250 Mg Tab PO Not Given BID CONNOR Cholecalciferol 1,000 unit 06/18/20 10:00 07/19/20 11:07 Cholecalciferol (Vit D3) 1000 Unit (25 Mcg) Tab PO Not Given DAILY [facility] Docusate Sodium 100 mg 06/23/20 15:00 07/19/20 11:06 Docusate Sodium 100 Mg/10 Ml Oral Liqd FEEDTUBE Not Given BID CONNOR Fentanyl 50 mcg 06/18/20 01:02 07/09/20 00:20 Fentanyl 100 Mcg/2 Ml Inj IV 50 mcg Q10MIN PRN Administration ANALGESIA Heparin Sodium (Porcine) 5,000 unit 06/22/20 12:53 06/30/20 13:36 Heparin 10,000 Unit/1 Ml Vial IV 5,000 unit APM PRN Administration hemodialysis Hydrophilic Ointment 1 applic 06/17/20 22:52 07/12/20 20:22 Lip Therapy Vaseline TP 1 applic Q2HR PRN Administration Dry Lips Propofol 1,000 mg in 100 mls @ 3.402 mls/hr 06/18/20 01:00 07/19/20 07:38 Diprivan 10 Mg/Ml IV 10 mcg/kg/min TITR CONNOR 6.804 mls/hr Administration Protocol 5 MCG/KG/MIN Fentanyl Citrate 2,000 mcg in 100 mls @ 8 mls/hr 06/18/20 02:00 07/19/20 11:05 Fentanyl Drip Premix IV 2 mcg/kg/hr TITR CONNOR 16 mls/hr Administration Protocol 1 MCG/KG/HR Norepinephrine 4 mg in 250 mls @ 7.5 mls/hr 07/08/20 02:06 07/19/20 00:53 Levophed Drip 4 Mg/Ns 250 Ml IV 0 mcg/min TITR CONNOR 0 mls/hr Titration Protocol 2 MCG/MIN Vasopressin 20 unit/ Sodium 101 mls @ 9.09 mls/hr 07/11/20 11:00 07/18/20 15:36 Chloride IV 0 units/min TITR CONNOR 0 mls/hr Titration Protocol 0.03 UNITS/MIN Piperacillin Sod/Tazobactam Sod 4.5 gm in 100 mls @ 200 mls/hr 07/18/20 13:00 07/19/20 01:28 Zosyn/Ns 4.5gm/100ml IV 200 mls/hr Q12H [facility] Administration Protocol Sodium Chloride 100 mls @ 999 mls/hr 07/19/20 08:22 Nacl 0.9% IV PAM PRN Hypotension Insulin Human Regular 0 units 06/18/20 12:00 07/19/20 12:08 Insulin Regular, Human 100 Units/1 Ml SUB-Q Not Given Q6HR [facility] Protocol Multi-Ingred Cream/Lotion/Oil/Oint 1 applic 06/17/20 22:52 07/12/20 20:22 Mineral Oil/Petrolatum, White Ophth Oint 3.5 Gm OU 1 applic Q4HR PRN Administration Dry Eye(s) Ondansetron HCl 4 mg 06/17/20 14:17 Ondansetron 4 Mg/2 Ml Inj IV Q8H PRN Nausea And Vomiting Pantoprazole Sodium 40 mg 07/16/20 22:00 07/19/20 09:13 Pantoprazole 40 Mg Inj IV 40 mg BID CONNOR Administration Polyethylene Glycol 17 gm 06/23/20 15:00 07/19/20 11:06 Polyethylene Glycol 3350 17 Gm Powder PO Not Given QDAY [facility] Quetiapine Fumarate 200 mg 06/28/20 13:00 07/19/20 11:07 Quetiapine 200 Mg Tab PO Not Given BID CONNOR Simple Syrup 15 ml 06/19/20 12:15 07/19/20 00:48 Simple Syrup 15 Ml FEEDTUBE 15 ml PRN PRN Administration Hypoglycemia Simple Syrup 30 ml 06/19/20 12:15 07/19/20 06:04 Simple Syrup 15 Ml FEEDTUBE 30 ml PRN PRN Administration Hypoglycemia Sodium Bicarbonate 325 mg 06/19/20 12:15 07/11/20 20:00 Sodium Bicarbonate 325 Mg Tab FEEDTUBE 325 mg PRN PRN Administration For Clogged Feeding Tube Sodium Bicarbonate 650 mg 07/04/20 10:00 07/19/20 07:36 Sodium Bicarbonate 650 Mg Tab PO 650 mg TID CONNOR Administration Sodium Chloride 10 ml 06/17/20 22:00 07/19/20 09:13 Sodium Chloride 0.9% 10 Ml Flush Syringe IV 10 ml BID CONNOR Administration Sodium Chloride 10 ml 06/17/20 14:17 Sodium Chloride 0.9% 10 Ml Flush Syringe IV PRN PRN LINE FLUSH Sodium Polystyrene Sulfonate 15 gm 07/03/20 11:19 07/05/20 10:36 Sodium Polystyrene 15 Gm/60 Ml Oral Liqd PO 15 gm Q6HR PRN Administration Hyperkalemia Zinc Sulfate 220 mg 06/17/20 22:00 07/19/20 11:07 Zinc Sulfate 220 Mg Cap PO Not Given BID CONNOR
--- NOTE | 2020-07-19 15:55 | Progress Note ---
Assessment and Plan - Patient Problems (1) Acute renal failure Current Visit: Yes Status: Acute Qualifiers: Acute renal failure type: with acute tubular necrosis Qualified Code(s): N17.0 - Acute kidney failure with tubular necrosis Plan to address problem: Likely prerenal in nature secondary to new onset of COVID-19 pneumonia with worsening sepsis and hypotension. Concern for acute tubular necrosis. Has now been on HD and this am is off pressor support. No signs of renal recovery. Will continue to monitor. Overall prognosis remains poor at this time. He is on a inpatient MWF HD schedule and we will assess daily needs for isolated UF treatment in order to optimize volume status. plan for isolated UF treatment today. (2) Pneumonia due to COVID-19 virus Current Visit: Yes Status: Acute Plan to address problem: Management per infectious disease recommendations. (3) Acute respiratory failure with hypoxia Current Visit: Yes Status: Acute Plan to address problem: Patient currently intubated at this time. Vent management per pulmonology recommendations. (4) Anemia Current Visit: Yes Status: Acute Qualifiers: Other causes of anemia: acute posthemorrhagic Plan to address problem: Per GI notes, EGD did not show evidence of active bleeding. Follow up further GI recommendations. Transfuse to maintain Hgb >7.0. (5) Hyperkalemia Current Visit: Yes Status: Acute Plan to address problem: Manage with HD. Subjective Date of service: 07/19/20 Principal diagnosis: ARF; Septic Shock; COVID-19 PNA; Atrial fibrillation; Obesity Interval history: no acute changes overnight. Seen earlier this afternoon and remained off pressors. Initial problems with vascular access and alteplase was appropriately dwelled. our dialysisnurse will come back to reevaluate. Plan is only for isolated you ultrafiltration treatment today Objective - Exam Narrative Exam: Not directly examined in order to preserve PPE. - Vital Signs Vital signs: Vital Signs - 12hr 07/19/20 07/19/20 07/19/20 04:00 04:01 04:15 Temperature Pulse Rate 70 76 70 Pulse Rate [ 124 H From Monitor] Respiratory 22 10 L 14 Rate Blood Pressure 130/63 126/59 O2 Sat by Pulse 100 96 99 Oximetry 07/19/20 07/19/20 07/19/20 04:30 04:45 05:01 Temperature Pulse Rate 74 67 65 Pulse Rate [ From Monitor] Respiratory 11 L 28 H 25 H Rate Blood Pressure 124/58 131/57 110/46 O2 Sat by Pulse 97 99 99 Oximetry 07/19/20 07/19/20 07/19/20 05:15 05:20 05:31 Temperature Pulse Rate 72 72 Pulse Rate [ From Monitor] Respiratory 21 13 Rate Blood Pressure 110/46 110/46 O2 Sat by Pulse 100 99 Oximetry 07/19/20 07/19/20 07/19/20 05:45 06:01 06:15 Temperature Pulse Rate 65 72 67 Pulse Rate [ From Monitor] Respiratory 25 H 15 27 H Rate Blood Pressure 101/42 100/52 115/50 O2 Sat by Pulse 100 100 100 Oximetry 07/19/20 07/19/20 07/19/20 06:30 06:45 07:01 Temperature Pulse Rate 68 75 74 Pulse Rate [ From Monitor] Respiratory 31 H 26 H 19 Rate Blood Pressure 109/49 113/49 106/49 O2 Sat by Pulse 100 86 100 Oximetry 07/19/20 07/19/20 07/19/20 07:15 07:31 07:45 Temperature Pulse Rate 70 71 67 Pulse Rate [ From Monitor] Respiratory 18 25 H 26 H Rate Blood Pressure 105/45 113/50 117/51 O2 Sat by Pulse 100 100 100 Oximetry 07/19/20 07/19/20 07/19/20 08:00 08:01 08:15 Temperature 97.3 F L Pulse Rate 65 74 65 Pulse Rate [ 68 From Monitor] Respiratory 24 10 L 28 H Rate Blood Pressure 117/53 117/53 113/46 O2 Sat by Pulse 100 100 96 Oximetry 07/19/20 07/19/20 07/19/20 08:31 08:45 09:00 Temperature Pulse Rate 67 76 68 Pulse Rate [ From Monitor] Respiratory 25 H 9 L 26 H Rate Blood Pressure 105/42 99/57 94/52 O2 Sat by Pulse 99 97 96 Oximetry 07/19/20 07/19/20 07/19/20 09:15 09:30 09:45 Temperature Pulse Rate 71 70 66 Pulse Rate [ From Monitor] Respiratory 26 H 26 H 25 H Rate Blood Pressure 94/52 115/52 111/47 O2 Sat by Pulse 96 97 97 Oximetry 07/19/20 07/19/20 07/19/20 10:00 10:15 10:31 Temperature Pulse Rate 64 70 72 Pulse Rate [ From Monitor] Respiratory 25 H 18 19 Rate Blood Pressure 105/43 116/50 118/56 O2 Sat by Pulse 97 96 97 Oximetry 07/19/20 07/19/20 07/19/20 10:45 11:01 11:14 Temperature Pulse Rate 66 72 65 Pulse Rate [ From Monitor] Respiratory 26 H 12 Rate Blood Pressure 118/51 116/59 116/46 O2 Sat by Pulse 97 97 99 Oximetry 07/19/20 07/19/20 07/19/20 11:15 11:31 11:45 Temperature Pulse Rate 66 71 72 Pulse Rate [ From Monitor] Respiratory 25 H 27 H 11 L Rate Blood Pressure 116/46 116/47 117/45 O2 Sat by Pulse 98 98 97 Oximetry 07/19/20 07/19/20 12:00 12:01 Temperature 97.3 F L Pulse Rate 66 72 Pulse Rate [ 66 From Monitor] Respiratory 20 11 L Rate Blood Pressure O2 Sat by Pulse 100 97 Oximetry - Lab 07/19/20 09:15 07/19/20 09:15 Most recent lab results ABG pH 7.374 (7.320-7.450) 07/19/20 03:57 ABG pCO2 56.4 mm Hg 07/05/20 04:30 ABG pO2 151.9 mm Hg (80.0-90.0) H 07/05/20 04:30 ABG HCO3 26.8 mmol/L (20.0-26.0) H 07/05/20 04:30 ABG O2 Saturation 98.7 % (95.0-99.0) 07/05/20 04:30 Calcium 6.8 mg/dL (8.4-10.2) L 07/19/20 09:15 Phosphorus 9.40 mg/dL (2.5-4.5) H 06/30/20 03:50 Magnesium 2.70 mg/dL (1.7-2.3) H 06/18/20 20:33 Urine Creatinine 192.4 mg/dL (0.1-20.0) H 06/18/20 15:00 Urine Sodium 28 mmol/L 06/18/20 15:00 Medications & Allergies - Medications Allergies/Adverse Reactions: Allergies No Known Allergies Allergy (Unverified 06/17/20 14:24) Home Medications: Home Medications Medication Instructions Recorded Confirmed Last Taken Type Losartan/Hydrochlorothiazide 1 each PO QDAY 06/19/20 06/19/20 Unknown History [Losartan-Hctz 100-25 mg Tab] amLODIPine [Norvasc] 5 mg PO DAILY 06/19/20 06/19/20 Unknown History Active Medications: Generic Name Dose Route Start Last Admin Trade Name Freq PRN Reason Stop Dose Admin Acetaminophen 650 mg 06/17/20 14:17 07/03/20 09:16 Acetaminophen 325 Mg Tab PO 650 mg Q4H PRN Administration Pain MILD(1-3)/Fever >100.5/ROBERTS Albuterol 2.5 mg 07/19/20 12:15 Albuterol 2.5 Mg/3 Ml Nebu IH Q6HRT PRN Shortness Of Breath Amiodarone HCl 200 mg 07/19/20 14:00 07/19/20 14:53 Amiodarone 200 Mg Tab PO 200 mg BID CONNOR Administration Lipase/Protease/Amylase 1 each 06/19/20 12:15 Lipase 10,500/Protease 25,000/Amylase 43,750 (Units) Dr Kulkarni FEEDTUBE PRN PRN For Clogged Feeding Tube Ascorbic Acid 250 mg 06/17/20 22:00 07/19/20 11:06 Ascorbic Acid 250 Mg Tab PO Not Given BID [facility] Cholecalciferol 1,000 unit 06/18/20 10:00 07/19/20 11:07 Cholecalciferol (Vit D3) 1000 Unit (25 Mcg) Tab PO Not Given DAILY [facility] Docusate Sodium 100 mg 06/23/20 15:00 07/19/20 11:06 Docusate Sodium 100 Mg/10 Ml Oral Liqd FEEDTUBE Not Given BID [facility] Fentanyl 50 mcg 06/18/20 01:02 07/09/20 00:20 Fentanyl 100 Mcg/2 Ml Inj IV 50 mcg Q10MIN PRN Administration ANALGESIA Heparin Sodium (Porcine) 5,000 unit 06/22/20 12:53 06/30/20 13:36 Heparin 10,000 Unit/1 Ml Vial IV 5,000 unit PAM PRN Administration hemodialysis Hydrophilic Ointment 1 applic 06/17/20 22:52 07/12/20 20:22 Lip Therapy Vaseline TP 1 applic Q2HR PRN Administration Dry Lips Propofol 1,000 mg in 100 mls @ 3.402 mls/hr 06/18/20 01:00 07/19/20 07:38 Diprivan 10 Mg/Ml IV 10 mcg/kg/min TITR CONNOR 6.804 mls/hr Administration Protocol 5 MCG/KG/MIN Fentanyl Citrate 2,000 mcg in 100 mls @ 8 mls/hr 06/18/20 02:00 07/19/20 11:05 Fentanyl Drip Premix IV 2 mcg/kg/hr TITR CONNOR 16 mls/hr Administration Protocol 1 MCG/KG/HR Norepinephrine 4 mg in 250 mls @ 7.5 mls/hr 07/08/20 02:06 07/19/20 15:50 Levophed Drip 4 Mg/Ns 250 Ml IV 8 mcg/min TITR CONNOR 30 mls/hr Titration Protocol 2 MCG/MIN Vasopressin 20 unit/ Sodium 101 mls @ 9.09 mls/hr 07/11/20 11:00 07/18/20 15:36 Chloride IV 0 units/min TITR CONNOR 0 mls/hr Titration Protocol 0.03 UNITS/MIN Piperacillin Sod/Tazobactam Sod 4.5 gm in 100 mls @ 200 mls/hr 07/18/20 13:00 07/19/20 14:50 Zosyn/Ns 4.5gm/100ml IV 200 mls/hr Q12H [facility] Administration Protocol Sodium Chloride 100 mls @ 999 mls/hr 07/19/20 08:22 Nacl 0.9% IV PAM PRN Hypotension Insulin Human Regular 0 units 06/18/20 12:00 07/19/20 12:08 Insulin Regular, Human 100 Units/1 Ml SUB-Q Not Given Q6HR [facility] Protocol Multi-Ingred Cream/Lotion/Oil/Oint 1 applic 06/17/20 22:52 07/12/20 20:22 Mineral Oil/Petrolatum, White Ophth Oint 3.5 Gm OU 1 applic Q4HR PRN Administration Dry Eye(s) Ondansetron HCl 4 mg 06/17/20 14:17 Ondansetron 4 Mg/2 Ml Inj IV Q8H PRN Nausea And Vomiting Pantoprazole Sodium 40 mg 07/16/20 22:00 07/19/20 09:13 Pantoprazole 40 Mg Inj IV 40 mg BID CONNOR Administration Polyethylene Glycol 17 gm 06/23/20 15:00 07/19/20 11:06 Polyethylene Glycol 3350 17 Gm Powder PO Not Given QDAY [facility] Quetiapine Fumarate 200 mg 06/28/20 13:00 07/19/20 11:07 Quetiapine 200 Mg Tab PO Not Given BID CONNOR Simple Syrup 15 ml 06/19/20 12:15 07/19/20 00:48 Simple Syrup 15 Ml FEEDTUBE 15 ml PRN PRN Administration Hypoglycemia Simple Syrup 30 ml 06/19/20 12:15 07/19/20 06:04 Simple Syrup 15 Ml FEEDTUBE 30 ml PRN PRN Administration Hypoglycemia Sodium Bicarbonate 325 mg 06/19/20 12:15 07/11/20 20:00 Sodium Bicarbonate 325 Mg Tab FEEDTUBE 325 mg PRN PRN Administration For Clogged Feeding Tube Sodium Bicarbonate 650 mg 07/04/20 10:00 07/19/20 14:51 Sodium Bicarbonate 650 Mg Tab PO 650 mg TID CONNOR Administration Sodium Chloride 10 ml 06/17/20 22:00 07/19/20 09:13 Sodium Chloride 0.9% 10 Ml Flush Syringe IV 10 ml BID CONNOR Administration Sodium Chloride 10 ml 06/17/20 14:17 Sodium Chloride 0.9% 10 Ml Flush Syringe IV PRN PRN LINE FLUSH Sodium Polystyrene Sulfonate 15 gm 07/03/20 11:19 07/05/20 10:36 Sodium Polystyrene 15 Gm/60 Ml Oral Liqd PO 15 gm Q6HR PRN Administration Hyperkalemia Zinc Sulfate 220 mg 06/17/20 22:00 07/19/20 11:07 Zinc Sulfate 220 Mg Cap PO Not Given BID [facility]NOR
--- NOTE | 2020-07-19 16:11 | Progress Note ---
Assessment and Plan 1. GI bleed - EGD/Colon on 07/15 showing old blood throughout colon, with diverticulosis, and no active bleeding. CTA showed no evidence of bleeding. DDx - diverticular bleed, vs ischemia or AVMs. Clinically, old blood from rectum. Hgb drifting down slowly. - monitor H/H and transfuse as needed - next step would be a nuclear bleeding scan, when well enough, to try and isolate site of bleeding and guide therapy. - empiric PPI prophylaxis Subjective Date of service: 07/19/20 Principal diagnosis: ARF; Septic Shock; COVID-19 PNA; Atrial fibrillation; Obesity Interval history: Pt intubated, has clots around FCD at times. Objective - Exam Narrative Exam: Pt seen through glass doors, due to COVID. Intubated. Multiple lines in place. - Constitutional Vitals: Vital Signs - 12hr 07/19/20 07/19/20 07/19/20 04:15 04:30 04:45 Temperature Pulse Rate 70 74 67 Pulse Rate [ From Monitor] Respiratory 14 11 L 28 H Rate Blood Pressure 126/59 124/58 131/57 O2 Sat by Pulse 99 97 99 Oximetry 07/19/20 07/19/20 07/19/20 05:01 05:15 05:20 Temperature Pulse Rate 65 72 Pulse Rate [ From Monitor] Respiratory 25 H 21 Rate Blood Pressure 110/46 110/46 O2 Sat by Pulse 99 100 99 Oximetry 07/19/20 07/19/20 07/19/20 05:31 05:45 06:01 Temperature Pulse Rate 72 65 72 Pulse Rate [ From Monitor] Respiratory 13 25 H 15 Rate Blood Pressure 110/46 101/42 100/52 O2 Sat by Pulse 100 100 Oximetry 07/19/20 07/19/20 07/19/20 06:15 06:30 06:45 Temperature Pulse Rate 67 68 75 Pulse Rate [ From Monitor] Respiratory 27 H 31 H 26 H Rate Blood Pressure 115/50 109/49 113/49 O2 Sat by Pulse 100 100 86 Oximetry 07/19/20 07/19/20 07/19/20 07:01 07:15 07:31 Temperature Pulse Rate 74 70 71 Pulse Rate [ From Monitor] Respiratory 19 18 25 H Rate Blood Pressure 106/49 105/45 113/50 O2 Sat by Pulse 100 100 100 Oximetry 07/19/20 07/19/2007/19/21 07:45 08:00 08:01 Temperature 97.3 F L Pulse Rate 67 65 74 Pulse Rate [ 68 From Monitor] Respiratory 26 H 24 10 L Rate Blood Pressure 117/51 117/53 117/53 O2 Sat by Pulse 100 100 100 Oximetry 07/19/20 07/19/20 07/19/20 08:15 08:31 08:45 Temperature Pulse Rate 65 67 76 Pulse Rate [ From Monitor] Respiratory 28 H 25 H 9 L Rate Blood Pressure 113/46 105/42 99/57 O2 Sat by Pulse 96 99 97 Oximetry 07/19/20 07/19/20 07/19/20 09:00 09:15 09:30 Temperature Pulse Rate 68 71 70 Pulse Rate [ From Monitor] Respiratory 26 H 26 H 26 H Rate Blood Pressure 94/52 94/52 115/52 O2 Sat by Pulse 96 96 97 Oximetry 07/19/20 07/19/20 07/19/20 09:45 10:00 10:15 Temperature Pulse Rate 66 64 70 Pulse Rate [ From Monitor] Respiratory 25 H 25 H 18 Rate Blood Pressure 111/47 105/43 116/50 O2 Sat by Pulse 97 97 96 Oximetry 07/19/20 07/19/20 07/19/20 10:31 10:45 11:01 Temperature Pulse Rate 72 66 72 Pulse Rate [ From Monitor] Respiratory 19 26 H 12 Rate Blood Pressure 118/56 118/51 116/59 O2 Sat by Pulse 97 97 97 Oximetry 07/19/20 07/19/20 07/19/20 11:14 11:15 11:31 Temperature Pulse Rate 65 66 71 Pulse Rate [ From Monitor] Respiratory 25 H 27 H Rate Blood Pressure 116/46 116/46 116/47 O2 Sat by Pulse 99 98 98 Oximetry 07/19/20 07/19/20 07/19/20 11:45 12:00 12:01 Temperature 97.3 F L Pulse Rate 72 66 72 Pulse Rate [ 66 From Monitor] Respiratory 11 L 20 11 L Rate Blood Pressure 117/45 O2 Sat by Pulse 97 100 97 Oximetry 07/19/20 07/19/20 07/19/20 12:15 12:31 12:45 Temperature Pulse Rate 69 74 75 Pulse Rate [ From Monitor] Respiratory 23 17 8 L Rate Blood Pressure 108/51 114/48 114/48 O2 Sat by Pulse 97 97 97 Oximetry 07/19/20 07/19/20 07/19/20 13:00 13:15 13:31 Temperature Pulse Rate 64 69 73 Pulse Rate [ From Monitor] Respiratory 29 H 17 16 Rate Blood Pressure 105/48 115/50 124/44 O2 Sat by Pulse 98 98 97 Oximetry 07/19/20 07/19/20 07/19/20 13:45 14:01 14:15 Temperature Pulse Rate 75 72 72 Pulse Rate [ From Monitor] Respiratory 14 15 26 H Rate Blood Pressure 124/44 115/53 126/50 O2 Sat by Pulse 99 98 97 Oximetry 07/19/20 07/19/20 07/19/20 14:30 14:45 15:01 Temperature Pulse Rate 69 75 70 Pulse Rate [ From Monitor] Respiratory 25 H 15 26 H Rate Blood Pressure 110/45 119/57 104/44 O2 Sat by Pulse 98 97 99 Oximetry 07/19/20 07/19/20 07/19/20 15:15 15:30 15:45 Temperature Pulse Rate 72 69 69 Pulse Rate [ From Monitor] Respiratory 18 18 19 Rate Blood Pressure 99/48 98/45 107/41 O2 Sat by Pulse 98 98 99 Oximetry 07/19/20 16:05 Temperature Pulse Rate 72 Pulse Rate [ From Monitor] Respiratory Rate Blood Pressure 136/58 O2 Sat by Pulse 93 Oximetry - Labs CBC & Chem 7: 07/19/20 09:15 07/19/20 09:15 Labs: Abnormal lab results 07/19/20 07/19/20 07/19/20 Range/Units 00:06 03:57 05:22 WBC (4.5-11.0) K/mm3 RBC (3.65-5.03) M/mm3 Hgb (11.8-15.2) gm/dl Hct (35.5-45.6) % RDW (13.2-15.2) % ABG Hemoglobin 8.6 L (12.0-17.5) ABG Sodium 130.4 L (136.0-145.0) mmol/L Sodium (137-145) mmol/L Chloride (98-107) mmol/L BUN (9-20) mg/dL Creatinine (0.8-1.3) mg/dL POC Glucose 69 L 64 L (70-105) mg/dL Calcium (8.4-10.2) mg/dL AST (5-40) units/L ALT (7-56) units/L Total Protein (6.3-8.2) g/dL Albumin (3.9-5) g/dL Arterial Blood Ionized Calcium 3.9 L (4.6-5.3) mg/dL 07/19/20 07/19/20 Range/Units 09:15 09:15 WBC 32.5 H (4.5-11.0) K/mm3 RBC 2.57 L (3.65-5.03) M/mm3 Hgb 7.8 L (11.8-15.2) gm/dl Hct 22.8 L (35.5-45.6) % RDW 15.3 H (13.2-15.2) % ABG Hemoglobin (12.0-17.5) ABG Sodium (136.0-145.0) mmol/L Sodium 135 L (137-145) mmol/L Chloride 96.3 L (98-107) mmol/L BUN 61 H (9-20) mg/dL Creatinine 2.8 H (0.8-1.3) mg/dL POC Glucose (70-105) mg/dL Calcium 6.8 L (8.4-10.2) mg/dL AST 54 H (5-40) units/L ALT 65 H (7-56) units/L Total Protein 4.3 L (6.3-8.2) g/dL Albumin 1.8 L (3.9-5) g/dL Arterial Blood Ionized Calcium (4.6-5.3) mg/dL Medications & Allergies - Medications Allergies/Adverse Reactions: Allergies No Known Allergies Allergy (Unverified 06/17/20 14:24) Home Medications: Home Medications Medication Instructions Recorded Confirmed Last Taken Type Losartan/Hydrochlorothiazide 1 each PO QDAY 06/19/20 06/19/20 Unknown History [Losartan-Hctz 100-25 mg Tab] amLODIPine [Norvasc] 5 mg PO DAILY 06/19/20 06/19/20 Unknown History Active Medications: Generic Name Dose Route Start Last Admin Trade Name Freq PRN Reason Stop Dose Admin Acetaminophen 650 mg 06/17/20 14:17 07/03/20 09:16 Acetaminophen 325 Mg Tab PO 650 mg Q4H PRN Administration Pain MILD(1-3)/Fever >100.5/ROBERTS Albuterol 2.5 mg 07/19/20 12:15 Albuterol 2.5 Mg/3 Ml Nebu IH Q6HRT PRN Shortness Of Breath Amiodarone HCl 200 mg 07/19/20 14:00 07/19/20 14:53 Amiodarone 200 Mg Tab PO 200 mg BID CONNOR Administration Lipase/Protease/Amylase 1 each 06/19/20 12:15 Lipase 10,500/Protease 25,000/Amylase 43,750 (Units) Dr Cap FEEDTUBE PRN PRN For Clogged Feeding Tube Ascorbic Acid 250 mg 06/17/20 22:00 07/19/20 11:06 Ascorbic Acid 250 Mg Tab PO Not Given BID CONNOR Cholecalciferol 1,000 unit 06/18/20 10:00 07/19/20 11:07 Cholecalciferol (Vit D3) 1000 Unit (25 Mcg) Tab PO Not Given DAILY [facility] Docusate Sodium 100 mg 06/23/20 15:00 07/19/20 11:06 Docusate Sodium 100 Mg/10 Ml Oral Liqd FEEDTUBE Not Given BID [facility] Fentanyl 50 mcg 06/18/20 01:02 07/09/20 00:20 Fentanyl 100 Mcg/2 Ml Inj IV 50 mcg Q10MIN PRN Administration ANALGESIA Heparin Sodium (Porcine) 5,000 unit 06/22/20 12:53 06/30/20 13:36 Heparin 10,000 Unit/1 Ml Vial IV 5,000 unit PAM PRN Administration hemodialysis Hydrophilic Ointment 1 applic 06/17/20 22:52 07/12/20 20:22 Lip Therapy Vaseline TP 1 applic Q2HR PRN Administration Dry Lips Propofol 1,000 mg in 100 mls @ 3.402 mls/hr 06/18/20 01:00 07/19/20 07:38 Diprivan 10 Mg/Ml IV 10 mcg/kg/min TITR CONNOR 6.804 mls/hr Administration Protocol 5 MCG/KG/MIN Fentanyl Citrate 2,000 mcg in 100 mls @ 8 mls/hr 06/18/20 02:00 07/19/20 11:05 Fentanyl Drip Premix IV 2 mcg/kg/hr TITR CONNOR 16 mls/hr Administration Protocol 1 MCG/KG/HR Norepinephrine 4 mg in 250 mls @ 7.5 mls/hr 07/08/20 02:06 07/19/20 15:50 Levophed Drip 4 Mg/Ns 250 Ml IV 8 mcg/min TITR CONNOR 30 mls/hr Titration Protocol 2 MCG/MIN Vasopressin 20 unit/ Sodium 101 mls @ 9.09 mls/hr 07/11/20 11:00 07/18/20 15:36 Chloride IV 0 units/min TITR CONNOR 0 mls/hr Titration Protocol 0.03 UNITS/MIN Piperacillin Sod/Tazobactam Sod 4.5 gm in 100 mls @ 200 mls/hr 07/18/20 13:00 07/19/20 14:50 Zosyn/Ns 4.5gm/100ml IV 200 mls/hr Q12H CONNOR Administration Protocol Sodium Chloride 100 mls @ 999 mls/hr 07/19/20 08:22 Nacl 0.9% IV PAM PRN Hypotension Insulin Human Regular 0 units 06/18/20 12:00 07/19/20 12:08 Insulin Regular, Human 100 Units/1 Ml SUB-Q Not Given Q6HR CONNOR Protocol Multi-Ingred Cream/Lotion/Oil/Oint 1 applic 06/17/20 22:52 07/12/20 20:22 Mineral Oil/Petrolatum, White Ophth Oint 3.5 Gm OU 1 applic Q4HR PRN Administration Dry Eye(s) Ondansetron HCl 4 mg 06/17/20 14:17 Ondansetron 4 Mg/2 Ml Inj IV Q8H PRN Nausea And Vomiting Pantoprazole Sodium 40 mg 07/16/20 22:00 07/19/20 09:13 Pantoprazole 40 Mg Inj IV 40 mg BID CONNOR Administration Polyethylene Glycol 17 gm 06/23/20 15:00 07/19/20 11:06 Polyethylene Glycol 3350 17 Gm Powder PO Not Given QDAY CONNOR Quetiapine Fumarate 200 mg 06/28/20 13:00 07/19/20 11:07 Quetiapine 200 Mg Tab PO Not Given BID CONNOR Simple Syrup 15 ml 06/19/20 12:15 07/19/20 00:48 Simple Syrup 15 Ml FEEDTUBE 15 ml PRN PRN Administration Hypoglycemia Simple Syrup 30 ml 06/19/20 12:15 07/19/20 06:04 Simple Syrup 15 Ml FEEDTUBE 30 ml PRN PRN Administration Hypoglycemia Sodium Bicarbonate 325 mg 06/19/20 12:15 07/11/20 20:00 Sodium Bicarbonate 325 Mg Tab FEEDTUBE 325 mg PRN PRN Administration For Clogged Feeding Tube Sodium Bicarbonate 650 mg 07/04/20 10:00 07/19/20 14:51 Sodium Bicarbonate 650 Mg Tab PO 650 mg TID CONNOR Administration Sodium Chloride 10 ml 06/17/20 22:00 07/19/20 09:13 Sodium Chloride 0.9% 10 Ml Flush Syringe IV 10 ml BID CONNOR Administration Sodium Chloride 10 ml 06/17/20 14:17 Sodium Chloride 0.9% 10 Ml Flush Syringe IV PRN PRN LINE FLUSH Sodium Polystyrene Sulfonate 15 gm 07/03/20 11:19 07/05/20 10:36 Sodium Polystyrene 15 Gm/60 Ml Oral Liqd PO 15 gm Q6HR PRN Administration Hyperkalemia Zinc Sulfate 220 mg 06/17/20 22:00 07/19/20 11:07 Zinc Sulfate 220 Mg Cap PO Not Given BID [facility] HEART Score - HEART Score Troponin: Troponin T < 0.010 ng/mL (0.00-0.029) 06/17/20 12:33
--- NOTE | 2020-07-19 17:12 | Progress Note ---
Assessment and Plan Assessment and plan: -Vasopressor support (CCM and ID consulted, appreciate recommendations) -S/p dexamethasone and remdesivir therapy, contact/droplet isolation, remains on ventilation (wean as tolerated), vitamin C/vitamin D/zinc, anticoagulation per protocol, trend inflammatory markers -CT head with no acute process, supportive care -Wean mechanical ventilation as tolerated, VAP bundle -HD per nephrology -Transfuse for hemaglobin less than 7, s/p 9 units PRBC during stay -Per GI: Consider nuclear bleeding scan when stable -Nephrology, ID, heme-onc, GI , cardiology consulted,appreciate recommendations -BCR-ABL mutation testing pending -Repeat blood cultures pending (per ID need to remove/exchange lines if blood cultures positive) -Hold systemic anticoagulation in setting of severe anemia -Amiodarone -Switched abx to IV Zosyn alone, will cover Enterococcus per ID -CTA abdomen/pelvis shows no active intermittent GI bleed, bibasilar pneumonia with pneumomediastinum and subcutaneous emphysema in the chest, possible mild infectious or inflammatory colitis, diffuse anasarca within the subcutaneous tissues of the pelvis and upper thighs, bilateral airspace consolidation with air bronchograms and patchy groundglass airspace disease demonstrated throughout the lung bases with no pneumothorax or pleural effusion DVT prophylaxis: GI prophylaxis, heparin subcu, SCDs to bilateral LE while in bed Disposition: ICU, ?placement ?trach/peg ?Ltach History Interval history: 59-year-old white male who was admitted for pneumonia secondary to Covid with as sociated respiratory failure and sepsis. Severe septic shock COVID-19 pneumonia Acute metabolic encephalopathy Acute hypoxic respiratory failure Enterococcus bacteremia Pneumomediastinum Acute kidney injury likely secondary to acute tubular necrosis which progressed to hemodialysis SVT/proximal atrial fibrillation Elevated LFTs Anemia likely due to severe sepsis had declining renal function Morbid obesity Leukocytosis Hyperkalemia Hypocalcemia Hypoalbuminemia 06/18: Patient got intubated overnight. Patient was placed on BiPAP to maintain oxygenation with 100% FiO2 but apparently he found to take off his argueta which made his oxygen saturation go down at 60s/50s and patient was found altered mental status. Code met was called immediately. Patient was transferred to ICU and intubated, patient currently on 2 pressors, intubated with 100% FiO2, renal function noted to be decline, nephrology consulted. Discussed with [place] physician Dr. Thompson and requested call back on Saturday. Poor prognosis, continue to monitor with aggressive supportive care. Also called family/ to update clinical status. 06/19: Repeat COVID test was positive. cont cefepime, remdesivir per ID recommendation. follow inflammatory markers, cbc, bmp. placed on heparin drip for atrial fib 06/20: Remains on mechanical ventilation, on 2 pressors, on heparin drip. discussed with and daughter by phone. Renal function declining. cont supportive care for now. 06/21: Renal function cont to decline, urine outpt sig decreased. started on lasix 80mg BID, plan to follow urine output, if no improvement patient need to start on HD. called and daughter today. updated all clinical details 06/22: Renal function continues to decline with uremia and hyperkalemia. Will need to proceed with hemodialysis. Nephrology discussed with the family and they agrees for the hemodialysis. Patient remains on pressor support and mechanical ventilation. Vas-Cath placed today by vascular started on hemodialysis today. 06/23: 2nd round of HD today, remains on 2 pressors. per RN not tolerating TF, has no record of BM since 06/18. start on stool softner. follow cbc/bmp. updated family ( and daughter) by phone -all question answered to best of my knowledge and to their satisfaction. Patient remains critically ill with a very poor prognosis. 06/24: Continue supportive care, Very poor prognosis, Cord Maker to discuss with family in am due to the futility of the condition. 06/25/2020 continue supportive care very poor prognosis 06/26/2020 continue supportive care very poor prognosis family updated 06/27/2020 continue supportive care and weaning if possible 06/28/2020 continue supportive care, talk with at length 06/29: Resumed care. K level persistently high. give one dose of bicarbonate, plan for HD today, recheck k after HD. updated family by phone 06/30: updated family by phone. Patient remains on amiodarone drip and vasopressin. Getting HD at the bedside. Tolerating tube feeding at low rate. 07/01: Hb dropped to 6.4 today, transfuse one unit PRBC. patient is off pressor today, remains on amioderone. cont to monitor 07/02: Called patient and updated clinical details. Patient remains critically ill, still intubated. Patient's oxygen requirement and PEEP pressure has went down. Continue weaning protocol per critical care recommendation. Patient remains off pressor. Continue to wean off from amiodarone and plan to rate control with p.o. medications. Tolerating tube feeding. H&H stable today. Order for stool for occult blood. Monitor H&H and BMP. Continue to follow clinically 07/03: discussed with [facility] physician today. Patient back on 100percent Fio2 since last night. planned for emergent Hd today. spiked fever, start IV C efepime + Vancomycin renally dosed. Restarted Levophed today, remains on amiodarone drip. Patient family was updated by critical care attending today. 07/04: Patient has hemodialysis yesterday and also plan for today for volume overload and pulmonary edema. Patient currently on 80% FiO2. Remains on Levophed and amiodarone. Hemoglobin dropped to 6.7 without any evidence of active bleeding. LFTs remain stable. Repeat Covid test on 06/30 and 07/03 remains positive. Will transfuse another unit of packed RBC today. Called family for update -explained family that patient is critically ill with very poor prognosis. 07/05: Patient on 70% FiO2 with PEEP of 14. h/h stable after transfusion. hyp erkalemia improved, cont sodiumbicarbonate pill with TF. follow BMP. off levophed today, remains on amioderone. poor prognosis. 07/06: Patient remains on amiodarone drip, maintaining BP without any pressor. FiO2 requirement trended down to 60% with PEEP of 14. Continue to follow clinically. Plan to wean off amiodarone drip as tolerated. Wean off from sedation as tolerated. Updated family. Patient remains critically ill with poor prognosis. 07/07: Called family for update. Off amiodarone drip today, patient also off pressor. FiO2 requirement trended up again to 80-100%. Continue to provide supportive care, monitor clinically. Having difficulty to wean off from the vent support. Patient is persistently positive for COVID-19 and COVID-19 antibody is nonreactive. Patient remains critically ill with very poor prognosis. 07/08: Continue supportive care. Soft Boarder pig sticker and centerless grinder set up operator input noted. Prognosis remains guarded to poor. Management per team. Critical care time 35-minute 07/09/20 patient is tachycardic. Heart rate 121. Hemoglobin 7.3. Patient is having hemodialysis. Continue supportive care. Patient having difficulty to wean off from the vent support. Prognosis is poor. Nephrology and cardiology follow-up. Recheck CBC BMP in the morning. Continue current management. 07/10/20 patient seen and examined, remains on full ventilator patient is doing better. Patient is off pressor. heart rate 123. Hemoglobin 6.8 and hematocrit 20.7. WBC is 18.1. Continue supportive care. Patient having difficulty to wean off from the vent support. We will started on Zosyn 4.5 g IV every 8 hours. Will transfuse 1 unit of packed red blood cell. Prognosis is poor. Nephrology and cardiology follow up. Recheck CBC BMP in the morning 07/11: remains off vasopressor, h/h appropriately responded to 1 unit PRBC. HD today. Remain on MV with fiO2 at 70%. peep 10. No acute events reported overnight. 07/12: Patient remains in atrial fibrillation on the eye dropper assembler, vasopressor support with Levophed and vasopressin, sedated with fentanyl and propofol. Vent settings: CMV 500/25/14/0.60. Patient remains hypercarbic on ABG 07/13: Patient remains on vasopressin, fentanyl and propofol with rectal tube in place. This morning some examination patient was on assist control 25/500/14/0.60. Patient received hemodialysis today. No acute events reported overnight. 07/14: Remains on vasopressin, fentanyl and propofol with tube in place. Rectal tube in place with noted blood clots, GI consulted, on 07/13 H/H dropped from 8.7/27 to 7.4/22 and anticoagulation discontinued. This morning I spoke to his who still wishes for the patient to remain a full code despite update with continued use of vasopressor (vasopressin), current ventilatory support (CMV 50 0/25/14/0.60) and recent development of rectal bleeding. Patient's family requests an update from [facility] and GI. Cardio changed amio from PO to IV given elevated HR 07/15: Today the patient received a total of 5 units of PRBC and is still having bleeding through his rectal tube. CTA abdomen/pelvis is pending, patient remains on Levophed, fentanyl, propofol, vasopressin and received hemodialysis today. He was also hyperkalemic today to 6 and he received insulin and D50. Extensive conversation with family conducted by CCM and hospitalist and his and 2 daughters did visit him today at the bedside. 07/16: Continues with full ventilatory support. FMS still inplace with some loose bloody stool. Still on multiple pressors, Bilateral swollen and generalized anascara. Monitor H/H and transfuse as needed. Monitor K level. Discussed with family at bedside yesterday. 07/17: Continue supportive care, transfusion blood possible in am with HD, continue abx, very poor prognosis, blood pressure still labile. Discussed with nurse at bedside 07/18: CTA abdomen/pelvis completed, antibiotics changed to Zosyn per infectious disease, remains on mechanical ventilation 450/25/12/0.55 continue amiodarone drip for 24 more hours, blood culture grew Enterococcus. Remains sedated on propofol and fentanyl. Not on vasopressor support today Hospitalist Physical - Constitutional Vitals: Temp Pulse Resp BP Pulse Ox 97.4 F L 72 19 109/59 93 07/19/20 16:00 07/19/20 17:00 07/19/20 15:45 07/19/20 17:00 07/19/20 16:05 General appearance: Present: severe distress, well-nourished - EENT ENT: ulcerations - Neck Neck: Present: normal ROM - Respiratory Respiratory effort: normal Respiratory: bilateral: diminished, rhonchi - Cardiovascular Rhythm: regular Heart Sounds: Present: S1 & S2. Absent: systolic murmur, diastolic murmur - Extremities Extremities: no ischemia, pulses intact, pulses symmetrical, normal temperature, normal color Peripheral Pulses: within normal limits - Abdominal General gastrointestinal: soft, non-tender, non-distended, hypoactive bowel sounds - Integumentary Integumentary: Present: warm, dry - Psychiatric Psychiatric: other (sedated) - Neurologic Neurologic: other (sedated) - Allied Health Allied health notes reviewed: nursing, RT, social work, case management HEART Score - HEART Score Troponin: Troponin T < 0.010 ng/mL (0.00-0.029) 06/17/20 12:33 Results - Labs CBC & Chem 7: 07/19/20 09:15 07/19/20 09:15 Labs: Laboratory Last Values WBC 32.5 K/mm3 (4.5-11.0) H 07/19/20 09:15 RBC 2.57 M/mm3 (3.65-5.03) L 07/19/20 09:15 Hgb 7.8 gm/dl (11.8-15.2) L 07/19/20 09:15 Hct 22.8 % (35.5-45.6) L 07/19/20 09:15 MCV 89 fl (84-94) 07/19/20 09:15 MCH 30 pg (28-32) 07/19/20 09:15 MCHC 34 % (32-34) 07/19/20 09:15 RDW 15.3 % (13.2-15.2) H 07/19/20 09:15 Plt Count 196 K/mm3 (140-440) 07/19/20 09:15 Lymph % (Auto) 5.6 % (13.4-35.0) L 07/12/20 03:40 [place] % (Auto) 7.4 % (0.0-7.3) H 07/12/20 03:40 Eos % (Auto) 2.8 % (0.0-4.3) 07/12/20 03:40 Baso % (Auto) 0.3 % (0.0-1.8) 07/12/20 03:40 Lymph # (Auto) 1.4 K/mm3 (1.2-5.4) 07/12/20 03:40 [place] # (Auto) 1.8 K/mm3 (0.0-0.8) H 07/12/20 03:40 Eos # (Auto) 0.7 K/mm3 (0.0-0.4) H 07/12/20 03:40 Baso # (Auto) 0.1 K/mm3 (0.0-0.1) 07/12/20 03:40 Add Manual Diff Complete 07/17/20 15:25 Total Counted 100 07/17/20 15:25 Seg Neutrophils % Microbiology Quality Control Technician 07/17/20 15:25 Seg Neuts % (Manual) 87.0 % (40.0-70.0) H 07/17/20 15:25 Band Neutrophils % 2 % 07/17/20 15:25 Lymphocytes % (Manual) 3.0 % (13.4-35.0) L 07/17/20 15:25 Reactive Lymphs % (Man) 1.0 % 02/11/21 04:00 Monocytes % (Manual) 7.0 % (0.0-7.3) 07/17/20 15:25 Eosinophils % (Manual) 4.0 % (0.0-4.3) 07/11/20 06:52 Metamyelocytes % 1 % 07/17/20 15:25 Myelocytes % 0 % 07/17/20 15:25 Promyelocytes % 0 % 07/17/20 15:25 Nucleated RBC % Not Reportable 07/17/20 15:25 Seg Neutrophils # 20.4 K/mm3 (1.8-7.7) H 07/12/20 03:40 Seg Neutrophils # Man 40.2 K/mm3 (1.8-7.7) H 07/17/20 15:25 Band Neutrophils # 0.9 K/mm3 07/17/20 15:25 Lymphocytes # (Manual) 1.4 K/mm3 (1.2-5.4) 07/17/20 15:25 Abs React Lymphs (Man) 0.0 K/mm3 07/17/20 15:25 Monocytes # (Manual) 3.2 K/mm3 (0.0-0.8) H 07/17/20 15:25 Eosinophils # (Manual) 0.0 K/mm3 (0.0-0.4) 07/17/20 15:25 Basophils # (Manual) 0.0 K/mm3 (0.0-0.1) 07/17/20 15:25 Metamyelocytes # 0.5 K/mm3 07/17/20 15:25 Myelocytes # 0.0 K/mm3 07/17/20 15:25 Promyelocytes # 0.0 K/mm3 07/17/20 15:25 Blast Cells # 0.0 K/mm3 07/17/20 15:25 Pathologist Review 07/17/20 15:25 WBC Morphology Not Reportable 07/17/20 15:25 Hypersegmented Neuts Not Reportable 07/17/20 15:25 Hyposegmented Neuts Not Reportable 07/17/20 15:25 Hypogranular Neuts Not Reportable 07/17/20 15:25 Smudge Cells Not Reportable 07/17/20 15:25 Toxic Granulation Not Reportable 07/17/20 15:25 Toxic Vacuolation Not Reportable 07/17/20 15:25 Dohle Bodies Not Reportable 07/17/20 15:25 Pelger-Huet Anomaly Not Reportable 07/17/20 15:25 Carlito Rods Not Reportable 07/17/20 15:25 Platelet Estimate Not Reportable 07/17/20 15:25 Clumped Platelets Not Reportable 07/17/20 15:25 Plt Clumps, EDTA Not Reportable 07/17/20 15:25 Large Platelets Not Reportable 07/17/20 15:25 Giant Platelets Not Reportable 07/17/20 15:25 Platelet Satelliting Not Reportable 07/17/20 15:25 Plt Morphology Comment Not Reportable 07/17/20 15:25 RBC Morphology Not Reportable 07/17/20 15:25 Dimorphic RBCs Not Reportable 07/17/20 15:25 Polychromasia Not Reportable 07/17/20 15:25 Hypochromasia Not Reportable 07/17/20 15:25 Poikilocytosis Not Reportable 07/17/20 15:25 Anisocytosis Rare 07/17/20 15:25 Microcytosis Rare 07/17/20 15:25 Macrocytosis Not Reportable 07/17/20 15:25 Spherocytes Not Reportable 07/17/20 15:25 Pappenheimer Bodies Not Reportable 07/17/20 15:25 Sickle Cells Not Reportable 07/17/20 15:25 Target Cells Not Reportable 07/17/20 15:25 Tear Drop Cells Not Reportable 07/17/20 15:25 Ovalocytes Not Reportable 07/17/20 15:25 Stomatocytes Rare 07/10/20 03:55 Helmet Cells Not Reportable 07/17/20 15:25 [place] Bodies Not Reportable 07/17/20 15:25 [place] Rings Not Reportable 07/17/20 15:25 [place] Cells Not Reportable 07/17/20 15:25 Bite Cells Not Reportable 07/17/20 15:25 Crenated Cell Not Reportable 07/17/20 15:25 Elliptocytes Not Reportable 07/17/20 15:25 Acanthocytes (Spur) Not Reportable 07/17/20 15:25 Rouleaux Not Reportable 07/17/20 15:25 Hemoglobin C Crystals Not Reportable 07/17/20 15:25 Schistocytes Not Reportable 07/17/20 15:25 Malaria parasites Not Reportable 07/17/20 15:25 Victoriano Bodies Not Reportable 07/17/20 15:25 Hem Pathologist Commnt Sent to pathology 07/17/20 15:25 PT 18.2 Sec. (12.2-14.9) H 07/17/20 15:25 INR 1.52 (0.87-1.13) H 07/17/20 15:25 APTT 28.5 Sec. (24.2-36.6) 06/26/20 05:47 Fibrinogen 419 mg/dl (211-480) 07/15/20 08:21 D-Dimer 6608.00 ng/mlDDU (0-234) H 07/03/20 14:50 Heparin Anti-Xa Level < 0.10 U.I./ml (0.3-0.7) L 06/26/20 01:30 ABG pH 7.374 (7.320-7.450) 07/19/20 03:57 POC ABG pCO2 40.3 mmHg (32.0-48.0) 07/19/20 03:57 ABG pCO2 56.4 mm Hg 07/05/20 04:30 POC ABG pO2 85.8 mmHg (83-108) 07/19/20 03:57 ABG pO2 151.9 mm Hg (80.0-90.0) H 07/05/20 04:30 POC ABG HCO3 23 07/19/20 03:57 ABG HCO3 26.8 mmol/L (20.0-26.0) H 07/05/20 04:30 ABG O2 Saturation 98.7 % (95.0-99.0) 07/05/20 04:30 ABG O2 Content 5.0 (0.0-44) 07/04/20 05:20 POC ABG Base Excess -2.1 07/19/20 03:57 ABG Base Excess 0.1 mmol/L (-2.0-3.0) 07/05/20 04:30 ABG Hemoglobin 8.6 (12.0-17.5) L 07/19/20 03:57 ABG Oxyhemoglobin 95 (94-98) 07/19/20 03:57 ABG Carboxyhemoglobin 1.7 % (0.0-5.0) 07/05/20 04:30 ABG Methemoglobin 0.3 (0.0-1.5) 07/19/20 03:57 ABG Sodium 130.4 mmol/L (136.0-145.0) L 07/19/20 03:57 ABG Potassium 4.1 mmol/L (3.40-4.50) 07/19/20 03:57 ABG Chloride 100.0 mmol/L (98-107) 07/19/20 03:57 ABG Glucose 77 mg/dL (65-95) 07/19/20 03:57 Oxyhemoglobin 96.5 % (95.0-99.0) 07/05/20 04:30 Carboxyhemoglobin 1.0 (0.5-1.5) 07/19/20 03:57 FiO2 50 07/19/20 03:57 Sodium 135 mmol/L (137-145) L 07/19/20 09:15 Potassium 4.2 mmol/L (3.6-5.0) D 07/19/20 09:15 Chloride 96.3 mmol/L (98-107) L 07/19/20 09:15 Carbon Dioxide 25 mmol/L (22-30) 07/19/20 09:15 Anion Gap 18 mmol/L 07/19/20 09:15 BUN 61 mg/dL (9-20) H 07/19/20 09:15 Creatinine 2.8 mg/dL (0.8-1.3) H 07/19/20 09:15 Estimated GFR 28 ml/min 07/19/20 09:15 BUN/Creatinine Ratio 22 % 07/19/20 09:15 Glucose 87 mg/dL (75-100) 07/19/20 09:15 POC Glucose 64 mg/dL (70-105) L 07/19/20 05:22 Lactic Acid 1.40 mmol/L (0.7-2.0) 07/13/20 08:48 Calcium 6.8 mg/dL (8.4-10.2) L 07/19/20 09:15 Phosphorus 9.40 mg/dL (2.5-4.5) H 06/30/20 03:50 Magnesium 2.70 mg/dL (1.7-2.3) H 06/18/20 20:33 Ferritin 1171.0 ng/mL (30.0-300.0) H 07/03/20 14:50 Total Bilirubin 0.40 mg/dL (0.1-1.2) 07/19/20 09:15 Direct Bilirubin 0.5 mg/dL (0-0.2) H 07/05/20 08:21 Indirect Bilirubin 0.1 mg/dL 07/05/20 08:21 AST 54 units/L (5-40) H 07/19/20 09:15 ALT 65 units/L (7-56) H 07/19/20 09:15 Alkaline Phosphatase 116 units/L (35-129) 07/19/20 09:15 Lactate Dehydrogenase 525 units/L (91-180) H 07/03/20 14:50 Total Creatine Kinase 618 units/L (55-170) H 06/29/20 Unknown Troponin T < 0.010 ng/mL (0.00-0.029) 06/17/20 12:33 C-Reactive Protein 31.50 mg/dL (0.00-1.30) H 07/03/20 14:50 Total Protein 4.3 g/dL (6.3-8.2) L 07/19/20 09:15 Albumin 1.8 g/dL (3.9-5) L 07/19/20 09:15 Albumin/Globulin Ratio 0.7 % 07/19/20 09:15 Triglycerides 306 mg/dL (2-149) H 07/18/20 05:06 Procalcitonin 6.05 ng/mL (<0.15) 07/13/20 06:59 Arterial Blood Glucose 77 mg/dL (65-95) 07/19/20 03:57 Arterial Blood Ionized Calcium 3.9 mg/dL (4.6-5.3) L 07/19/20 03:57 Urine Color Yellow (Yellow) 06/17/20 15:57 Urine Turbidity Clear (Clear) 06/17/20 15:57 Urine pH 6.0 (5.0-7.0) 06/17/20 15:57 Ur Specific [place] 1.019 (1.003-1.030) 06/17/20 15:57 Urine Protein 30 mg/dl mg/dL (Negative) 06/17/20 15:57 Urine Glucose (UA) Neg mg/dL (Negative) 06/17/20 15:57 Urine Ketones Neg mg/dL (Negative) 06/17/20 15:57 Urine Blood Sm (Negative) 06/17/20 15:57 Urine Nitrite Neg (Negative) 06/17/20 15:57 Ur Reducing Substances Not Reportable 06/17/20 15:57 Urine Bilirubin Neg (Negative) 06/17/20 15:57 Urine Ictotest Not Reportable 06/17/20 15:57 Urine Urobilinogen < 2.0 mg/dL (<2.0) 06/17/20 15:57 Ur Leukocyte Esterase Neg (Negative) 06/17/20 15:57 Urine WBC (Auto) 1.0 /HPF (0.0-6.0) 06/17/20 15:57 Urine RBC (Auto) 2.0 /HPF (0.0-6.0) 06/17/20 15:57 Urine Mucus Few /HPF 06/17/20 15:57 Urine Creatinine 192.4 mg/dL (0.1-20.0) H 06/18/20 15:00 Urine Sodium 28 mmol/L 06/18/20 15:00 Urine Chloride 31.1 mmolL (110-250) L 06/18/20 15:00 Nasal Screen MRSA (PCR) Negative (Negative) 06/19/20 10:38 Vancomycin Trough 22.7 ug/mL (5.0-20.0) H 06/20/20 08:25 Random Vancomycin 13.5 ug/mL (0-40.0) 07/16/20 07:17 Coronavirus (PCR) Positive (Negative) A 07/03/20 10:10 Hepatitis A IgM Ab Non-reactive (NonReactive) 06/22/20 17:00 Hep Bs Antigen Non-reactive (Negative) 06/22/20 17:00 Hep B Core IgM Ab Non-reactive (NonReactive) 06/22/20 17:00 Hepatitis C Antibody Non-reactive (NonReactive) 06/22/20 17:00 SARS-CoV-2 IgG Ab Nonreactive (NonReactive) 07/04/20 05:20 Blood Type A POSITIVE 07/17/20 Unknown Antibody Screen Negative 07/17/20 Unknown Crossmatch See Detail 07/17/20 Unknown Microbiology: Microbiology 07/15/20 08:21 Peripheral/Venous Blood Culture - Preliminary NO GROWTH AFTER 4 DAYS 07/15/20 08:38 Peripheral/Venous Blood Culture - Preliminary NO GROWTH AFTER 4 DAYS 07/18/20 18:20 Peripheral/Venous Blood Culture - Preliminary Culture in Progress 07/18/20 18:05 Peripheral/Venous Blood Culture - Preliminary Culture in Progress 07/15/20 08:21 Peripheral/Venous Blood Fungal Culture - Preliminary Enterococcus Faecalis - Diagnostic Impressions Diagnostic Impressions: Echocardiogram 06/29/20 06:00 Transthoracic Echocardiogram Indication: A-fib BP: 105/47 HR: 99 Conclusions *The study is technically very difficult and limited due to poor acoustic windows. *Global left ventricular wall motion and contractility are within normal limits. *The estimated ejection fraction is 55-60%. *There is no pericardial effusion. Findings Procedure Info: The study quality is technically difficult. The study is technically limited due to poor acoustic windows. Left Ventricle: Global left ventricular wall motion and contractility are within normal limits. Global left ventricular systolic function is normal. The estimated ejection fraction is 55-60%. Left Atrium: The left atrium is not well visualized. Right Ventricle: The right ventricle is not well visualized. Right Atrium: The right atrium is not well visualized. Aortic Valve: The aortic valve is not well visualized. Mitral Valve: The mitral valve is not well visualized. Tricuspid Valve: The tricuspid valve is not well visualized. Pulmonic Valve: The pulmonic valve is not well visualized. Pericardium: There is no pericardial effusion. Venous: There is no change in the dimension of the inferior vena cava with respiration consistent with markedly increased right atrial pressure. [place]/IV: Voiding Method Incontinent Active Medications - Current Medications Current Medications: Generic Name Dose Route Start Last Admin Trade Name Freq PRN Reason Stop Dose Admin Acetaminophen 650 mg 06/17/20 14:17 07/03/20 09:16 Acetaminophen 325 Mg Tab PO 650 mg Q4H PRN Administration Pain MILD(1-3)/Fever >100.5/ROBERTS Albuterol 2.5 mg 07/19/20 12:15 Albuterol 2.5 Mg/3 Ml Nebu IH Q6HRT PRN Shortness Of Breath Amiodarone HCl 200 mg 07/19/20 14:00 07/19/20 14:53 Amiodarone 200 Mg Tab PO 200 mg BID CONNOR Administration Lipase/Protease/Amylase 1 each 06/19/20 12:15 Lipase 10,500/Protease 25,000/Amylase 43,750 (Units) Dr Cap FEEDTUBE PRN PRN For Clogged Feeding Tube Ascorbic Acid 250 mg 06/17/20 22:00 07/19/20 11:06 Ascorbic Acid 250 Mg Tab PO Not Given BID CONNOR Cholecalciferol 1,000 unit 06/18/20 10:00 07/19/20 11:07 Cholecalciferol (Vit D3) 1000 Unit (25 Mcg) Tab PO Not Given DAILY CONNOR Docusate Sodium 100 mg 06/23/20 15:00 07/19/20 11:06 Docusate Sodium 100 Mg/10 Ml Oral Liqd FEEDTUBE Not Given BID [facility] Fentanyl 50 mcg 06/18/20 01:02 07/09/20 00:20 Fentanyl 100 Mcg/2 Ml Inj IV 50 mcg Q10MIN PRN Administration ANALGESIA Heparin Sodium (Porcine) 5,000 unit 06/22/20 12:53 06/30/20 13:36 Heparin 10,000 Unit/1 Ml Vial IV 5,000 unit PAM PRN Administration hemodialysis Hydrophilic Ointment 1 applic 06/17/20 22:52 07/12/20 20:22 Lip Therapy Vaseline TP 1 applic Q2HR PRN Administration Dry Lips Propofol 1,000 mg in 100 mls @ 3.402 mls/hr 06/18/20 01:00 07/19/20 16:52 Diprivan 10 Mg/Ml IV 10 mcg/kg/min TITR CONNOR 6.804 mls/hr Administration Protocol 5 MCG/KG/MIN Fentanyl Citrate 2,000 mcg in 100 mls @ 8 mls/hr 06/18/20 02:00 07/19/20 16:5 1 Fentanyl Drip Premix IV 2 mcg/kg/hr TITR CONNOR 16 mls/hr Administration Protocol 1 MCG/KG/HR Norepinephrine 4 mg in 250 mls @ 7.5 mls/hr 07/08/20 02:06 07/19/20 15:50 Levophed Drip 4 Mg/Ns 250 Ml IV 8 mcg/min TITR CONNOR 30 mls/hr Titration Protocol 2 MCG/MIN Vasopressin 20 unit/ Sodium 101 mls @ 9.09 mls/hr 07/11/20 11:00 07/18/20 15:36 Chloride IV 0 units/min TITR CONNOR 0 mls/hr Titration Protocol 0.03 UNITS/MIN Piperacillin Sod/Tazobactam Sod 4.5 gm in 100 mls @ 200 mls/hr 07/18/20 13:00 07/19/20 14:50 Zosyn/Ns 4.5gm/100ml IV 200 mls/hr Q12H CONNOR Administration Protocol Sodium Chloride 100 mls @ 999 mls/hr 07/19/20 08:22 Nacl 0.9% IV PAM PRN Hypotension Insulin Human Regular 0 units 06/18/20 12:00 07/19/20 12:08 Insulin Regular, Human 100 Units/1 Ml SUB-Q Not Given Q6HR [facility] Protocol Multi-Ingred Cream/Lotion/Oil/Oint 1 applic 06/17/20 22:52 07/12/20 20:22 Mineral Oil/Petrolatum, White Ophth Oint 3.5 Gm OU 1 applic Q4HR PRN Administration Dry Eye(s) Ondansetron HCl 4 mg 06/17/20 14:17 Ondansetron 4 Mg/2 Ml Inj IV Q8H PRN Nausea And Vomiting Pantoprazole Sodium 40 mg 07/16/20 22:00 07/19/20 09:13 Pantoprazole 40 Mg Inj IV 40 mg BID CONNOR Administration Polyethylene Glycol 17 gm 06/23/20 15:00 07/19/20 11:06 Polyethylene Glycol 3350 17 Gm Powder PO Not Given QDAY CONNOR Quetiapine Fumarate 200 mg 06/28/20 13:00 07/19/20 11:07 Quetiapine 200 Mg Tab PO Not Given BID CONNOR Simple Syrup 15 ml 06/19/20 12:15 07/19/20 00:48 Simple Syrup 15 Ml FEEDTUBE 15 ml PRN PRN Administration Hypoglycemia Simple Syrup 30 ml 06/19/20 12:15 07/19/20 06:04 Simple Syrup 15 Ml FEEDTUBE 30 ml PRN PRN Administration Hypoglycemia Sodium Bicarbonate 325 mg 06/19/20 12:15 07/11/20 20:00 Sodium Bicarbonate 325 Mg Tab FEEDTUBE 325 mg PRN PRN Administration For Clogged Feeding Tube Sodium Bicarbonate 650 mg 07/04/20 10:00 07/19/20 14:51 Sodium Bicarbonate 650 Mg Tab PO 650 mg TID CONNOR Administration Sodium Chloride 10 ml 06/17/20 22:00 07/19/20 09:13 Sodium Chloride 0.9% 10 Ml Flush Syringe IV 10 ml BID CONNOR Administration Sodium Chloride 10 ml 06/17/20 14:17 Sodium Chloride 0.9% 10 Ml Flush Syringe IV PRN PRN LINE FLUSH Sodium Polystyrene Sulfonate 15 gm 07/03/20 11:19 07/05/20 10:36 Sodium Polystyrene 15 Gm/60 Ml Oral Liqd PO 15 gm Q6HR PRN Administration Hyperkalemia Zinc Sulfate 220 mg 06/17/20 22:00 07/19/20 11:07 Zinc Sulfate 220 Mg Cap PO Not Given BID CONNOR Nutrition/Malnutrition Assess - Dietary Evaluation Nutrition/Malnutrition Findings: Nutrition Notes Start: 06/18/20 10:28 Freq: Status: Active Protocol: Document 07/19/20 11:18 AL (Rec: 07/19/20 11:28 AL [id number]) Co-Sign 07/19/20 11:18 LP Nutrition Notes Initial or Follow up Reassessment Current Diagnosis Acute Kidney Injury,Sepsis, Respiratory Failure Other Pertinent Diagnosis COVID-19 (+), pneu Current Diet NPO Labs/Tests K 5.4 BUN 79 Cr 3.2 Pertinent Medications Propofol at 6.8 ml/hr (180 kcal) Height 6 ft Weight 153.3 kg [place] Body Weight (kg) 80.90 BMI 45.8 Weight change and time frame Wt change of 6.6 kg noted (4.7 %). Pt on HD Weight Status Obese Subjective/Other Information FU for stable TF. Per RN note, pt had GI bleed and TF was stopped on 07/14. This morning, RN restarted TF at 25 ml/hr and will incresase by 10 ml q8h. Percent of energy/protein needs met: 50%/29% Burn Absent Trauma Absent GI Symptoms Other Current % PO Negligible Minimum of two criteria No physical signs of malnutrition #2 Nutrition Diagnosis Overweight/obesity Diagnosis Progress(for reassessment Continues documentation) #1 Nutrition Diagnosis Inadequate oral intake Diagnosis Progress(for reassessment Continues documentation) Is patient on ventilator? Yes Is Patient Ambulatory and/or Out of Bed No REE-([place]-St. Jeor-confined to bed) 2849.316 Kcal/Kg value to use for calculation 14 Approximate Energy Requirements Using 2146 kcal/Kg Calculation Used for Recommendations Kcal/kg Additional Notes Protein needs up to >2 g/kg IBW: 162 g Fluid needs: 1,000 ml + output Nutrition Intervention Change Diet Order: TF Nutrition Support: Nepro 1.8 at 50 ml/hr Flush 215 ml q4h Kcal 2,160 Protein (gm) 97 Fluid (mL) 872 Goal #1 Tolerate TF at goal rate Goal #2 Meet energy and protein needs as best as possible. Anticipated Discharge Needs: Unable to determine at the time. Follow-Up By: 07/22/20 Additional Comments F/U for TF at goal rate and vent status
[2020-07-19] MEDS ORDERED: AMIODARONE 200 MG TAB PO SCH (22:00)
[2020-07-20] MEDS: NORepinephrine/NS 4 MG-250 ML 4 MG/250 ML BAG IV SCH
[2020-07-20] MEDS: PIPERACIL/TAZOBACTA 4.5/NS 100 4.5 GM/100 ML VIAL IV SCH ×2 (00:53→13:42)
[2020-07-20] MEDS: fentaNYL DRIP Premix 2,000 MCG/100 ML BAG IV SCH ×3 (05:40→18:44)
[2020-07-20] MEDS: INSULIN REGULAR, HUMAN 100 UNITS/1 ML SUB-Q SCH ×3 (06:16→17:31)
[2020-07-20 06:27] LABS: Hematocrit 22.7 % (35.5-45.6); Hemoglobin 7.7 gm/dl (11.8-15.2); Mean Corpuscular HGB Conc 34 % (32-34); Mean Corpuscular Volume 90 fl (84-94); Platelet Count 185 K/mm3 (140-440); Red Blood Count 2.53 M/mm3 (3.65-5.03); Red Cell Distribution Width 15.5 % (13.2-15.2)
[2020-07-20] MEDS: SODIUM BICARBONATE 650 MG TAB PO SCH ×3 (08:16→21:32)
[2020-07-20] MEDS: POLYETHYLENE GLYCOL 3350 17 GM POWDER PO SCH (09:16)
[2020-07-20] MEDS: ASCORBIC ACID 250 MG TAB PO SCH ×2 (09:16→21:32)
[2020-07-20] MEDS: AMIODARONE 200 MG TAB PO SCH ×2 (09:16→21:32)
[2020-07-20] MEDS: CHOLECALCIFEROL (VIT D3) 1000 UNIT (25 mcg) TAB PO SCH (09:16)
[2020-07-20] MEDS: ZINC SULFATE 220 MG CAP PO SCH ×2 (09:16→21:33)
[2020-07-20] MEDS: PANTOPRAZOLE 40 MG INJ IV SCH ×2 (09:16→21:33)
[2020-07-20] MEDS: QUEtiapine 200 MG TAB PO SCH ×2 (09:16→21:33)
--- NOTE | 2020-07-20 10:14 | Progress Note ---
Assessment and Plan - Patient Problems (1) Acute renal failure Current Visit: Yes Status: Acute Qualifiers: Acute renal failure type: with acute tubular necrosis Qualified Code(s): N17.0 - Acute kidney failure with tubular necrosis Plan to address problem: Likely prerenal in nature secondary to new onset of COVID-19 pneumonia with worsening sepsis and hypotension. Concern for acute tubular necrosis. Has now been on HD and this am is off pressor support. No signs of renal recovery. Will continue to monitor. Overall prognosis remains poor at this time. He is on a inpatient MWF HD schedule and we will assess daily needs for isolated UF treatment in order to optimize volume status. (2) Pneumonia due to COVID-19 virus Current Visit: Yes Status: Acute Plan to address problem: Management per infectious disease recommendations. (3) Acute respiratory failure with hypoxia Current Visit: Yes Status: Acute Plan to address problem: Patient currently intubated at this time. Vent management per pulmonology recommendations. (4) Anemia Current Visit: Yes Status: Acute Qualifiers: Other causes of anemia: acute posthemorrhagic Plan to address problem: Per GI notes, EGD did not show evidence of active bleeding. Follow up further GI recommendations. Transfuse to maintain Hgb >7.0. (5) Hyperkalemia Current Visit: Yes Status: Acute Plan to address problem: Manage with HD. Subjective Date of service: 07/20/20 Principal diagnosis: ARF; Septic Shock; COVID-19 PNA; Atrial fibrillation; Obesity Interval history: No acute changes, able to tolerate sequential UF treatment yesterday, with removal 2L UF. Plan for HD today. Objective - Exam Narrative Exam: Not directly examined in order to preserve PPE. - Vital Signs Vital signs: Vital Signs - 12hr 07/19/20 07/19/20 07/19/20 22:16 22:30 22:45 Temperature Pulse Rate 97 H 87 103 H Pulse Rate [ From Monitor] Respiratory 12 13 14 Rate Blood Pressure 124/57 129/60 134/62 O2 Sat by Pulse 99 99 99 Oximetry 07/19/20 07/19/20 07/19/20 23:00 23:15 23:30 Temperature Pulse Rate 107 H 115 H 108 H Pulse Rate [ From Monitor] Respiratory 14 17 13 Rate Blood Pressure 141/70 124/60 111/58 O2 Sat by Pulse 99 99 98 Oximetry 07/19/20 07/19/2021 23:42 23:43 23:45 Temperature 96.7 F L Pulse Rate 103 H 102 H Pulse Rate [ From Monitor] Respiratory 14 14 Rate Blood Pressure 111/58 121/49 O2 Sat by Pulse 98 98 Oximetry 07/19/20 07/20/20 07/20/20 23:46 00:00 00:02 Temperature Pulse Rate 106 H 100 H 96 H Pulse Rate [ 124 H From Monitor] Respiratory 14 22 21 Rate Blood Pressure 121/49 145/87 145/87 O2 Sat by Pulse 98 98 99 Oximetry 07/20/20 07/20/20 07/20/20 00:16 00:30 00:45 Temperature Pulse Rate 104 H 105 H 108 H Pulse Rate [ From Monitor] Respiratory 15 22 Rate Blood Pressure 137/77 137/50 137/50 O2 Sat by Pulse 99 99 99 Oximetry 07/20/20 07/20/20 07/20/20 00:46 01:00 01:15 Temperature Pulse Rate 108 H 107 H 97 H Pulse Rate [ From Monitor] Respiratory 21 19 17 Rate Blood Pressure 122/52 122/52 111/41 O2 Sat by Pulse 99 100 100 Oximetry 07/20/20 07/20/20 07/20/20 01:30 01:45 02:00 Temperature Pulse Rate 99 H 91 H 103 H Pulse Rate [ From Monitor] Respiratory 17 13 14 Rate Blood Pressure 93/42 96/48 105/49 O2 Sat by Pulse 100 100 100 Oximetry 07/20/20 07/20/20 07/20/20 02:15 02:30 02:46 Temperature Pulse Rate 95 H 98 H 107 H Pulse Rate [ From Monitor] Respiratory 17 12 13 Rate Blood Pressure 101/41 86/44 92/51 O2 Sat by Pulse 100 100 100 Oximetry 07/20/20 07/20/20 07/20/20 03:00 03:16 03:30 Temperature Pulse Rate 103 H 98 H 94 H Pulse Rate [ From Monitor] Respiratory 12 14 16 Rate Blood Pressure 86/50 83/53 72/45 O2 Sat by Pulse 100 100 100 Oximetry 07/20/20 07/20/20 07/20/20 03:42 03:43 03:46 Temperature Pulse Rate 100 H 95 H 88 Pulse Rate [ From Monitor] Respiratory 16 Rate Blood Pressure 171/77 O2 Sat by Pulse 99 Oximetry 07/20/20 07/20/2021 03:59 04:00 04:16 Temperature 97.6 F Pulse Rate 104 H 126 H Pulse Rate [ 124 H From Monitor] Respiratory 18 21 Rate Blood Pressure 153/77 168/63 O2 Sat by Pulse 100 99 Oximetry 07/20/20 07/20/20 07/20/20 04:30 04:45 05:00 Temperature Pulse Rate 106 H 102 H 97 H Pulse Rate [ From Monitor] Respiratory 25 H 20 22 Rate Blood Pressure 143/57 117/55 119/56 O2 Sat by Pulse 99 100 100 Oximetry 07/20/20 07/20/20 07/20/20 05:15 05:28 05:30 Temperature Pulse Rate 106 H 118 H 89 Pulse Rate [ From Monitor] Respiratory 16 19 Rate Blood Pressure 118/54 118/54 119/55 O2 Sat by Pulse 99 100 100 Oximetry 07/20/20 07/20/20 07/20/20 05:45 06:00 06:16 Temperature Pulse Rate 102 H 105 H 99 H Pulse Rate [ From Monitor] Respiratory 19 29 H 20 Rate Blood Pressure 115/54 121/54 110/53 O2 Sat by Pulse 100 100 100 Oximetry 07/20/20 07/20/20 07/20/20 06:30 06:45 07:00 Temperature Pulse Rate 97 H 86 100 H Pulse Rate [ From Monitor] Respiratory 25 H 18 16 Rate Blood Pressure 113/53 113/48 118/55 O2 Sat by Pulse 100 100 100 Oximetry 07/20/20 07/20/20 07/20/20 07:15 07:30 07:45 Temperature Pulse Rate 103 H 102 H 100 H Pulse Rate [ From Monitor] Respiratory 27 H 27 H 21 Rate Blood Pressure 128/58 123/57 113/59 O2 Sat by Pulse 100 100 100 Oximetry 07/20/20 07/20/20 07/20/20 08:00 08:15 08:34 Temperature 97.8 F Pulse Rate 103 H 108 H 107 H Pulse Rate [ 104 H From Monitor] Respiratory 28 H 22 Rate Blood Pressure 111/61 123/57 125/60 O2 Sat by Pulse 100 100 99 Oximetry - Lab 07/20/20 06:07 07/19/20 09:15 Most recent lab results ABG pH 7.367 (7.320-7.450) 07/20/20 06:00 ABG pCO2 56.4 mm Hg 07/05/20 04:30 ABG pO2 151.9 mm Hg (80.0-90.0) H 07/05/20 04:30 ABG HCO3 26.8 mmol/L (20.0-26.0) H 07/05/20 04:30 ABG O2 Saturation 96.7 (0-100) 07/20/20 06:00 Calcium 6.8 mg/dL (8.4-10.2) L 07/19/20 09:15 Phosphorus 9.40 mg/dL (2.5-4.5) H 06/30/20 03:50 Magnesium 2.70 mg/dL (1.7-2.3) H 06/18/20 20:33 Urine Creatinine 192.4 mg/dL (0.1-20.0) H 06/18/20 15:00 Urine Sodium 28 mmol/L 06/18/20 15:00 Medications & Allergies - Medications Allergies/Adverse Reactions: Allergies No Known Allergies Allergy (Unverified 06/17/20 14:24) Home Medications: Home Medications Medication Instructions Recorded Confirmed Last Taken Type Losartan/Hydrochlorothiazide 1 each PO QDAY 06/19/20 06/19/20 Unknown History [Losartan-Hctz 100-25 mg Tab] amLODIPine [Norvasc] 5 mg PO DAILY 06/19/20 06/19/20 Unknown History Active Medications: Generic Name Dose Route Start Last Admin Trade Name Freq PRN Reason Stop Dose Admin Acetaminophen 650 mg 06/17/20 14:17 07/03/20 09:16 Acetaminophen 325 Mg Tab PO 650 mg Q4H PRN Administration Pain MILD(1-3)/Fever >100.5/ROBERTS Albuterol 2.5 mg 07/19/20 12:15 Albuterol 2.5 Mg/3 Ml Nebu IH Q6HRT PRN Shortness Of Breath Amiodarone HCl 200 mg 07/19/20 14:00 07/20/20 09:16 Amiodarone 200 Mg Tab PO 200 mg BID CONNOR Administration Lipase/Protease/Amylase 1 each 06/19/20 12:15 Lipase 10,500/Protease 25,000/Amylase 43,750 (Units) Dr Kulkarni FEEDTUBE PRN PRN For Clogged Feeding Tube Ascorbic Acid 250 mg 06/17/20 22:00 07/20/20 09:16 Ascorbic Acid 250 Mg Tab PO 250 mg BID CONNOR Administration Cholecalciferol 1,000 unit 06/18/20 10:00 07/20/20 09:16 Cholecalciferol (Vit D3) 1000 Unit (25 Mcg) Tab PO 1,000 unit DAILY CONNOR Administration Docusate Sodium 100 mg 06/23/20 15:00 07/19/20 21:48 Docusate Sodium 100 Mg/10 Ml Oral Liqd FEEDTUBE Not Given BID CONNOR Fentanyl 50 mcg 06/18/20 01:02 07/09/20 00:20 Fentanyl 100 Mcg/2 Ml Inj IV 50 mcg Q10MIN PRN Administration ANALGESIA Heparin Sodium (Porcine) 5,000 unit 06/22/20 12:53 06/30/20 13:36 Heparin 10,000 Unit/1 Ml Vial IV 5,000 unit PAM PRN Administration hemodialysis Hydrophilic Ointment 1 applic 06/17/20 22:52 07/12/20 20:22 Lip Therapy Vaseline TP 1 applic Q2HR PRN Administration Dry Lips Propofol 1,000 mg in 100 mls @ 3.402 mls/hr 06/18/20 01:00 07/20/20 08:43 Diprivan 10 Mg/Ml IV 5 mcg/kg/min TITR CONNOR 3.402 mls/hr Titration Protocol 5 MCG/KG/MIN Fentanyl Citrate 2,000 mcg in 100 mls @ 8 mls/hr 06/18/20 02:00 07/20/20 05:40 Fentanyl Drip Premix IV 2 mcg/kg/hr TITR CONNOR 16 mls/hr Administration Protocol 1 MCG/KG/HR Norepinephrine 4 mg in 250 mls @ 7.5 mls/hr 07/08/20 02:06 07/20/20 08:44 Levophed Drip 4 Mg/Ns 250 Ml IV 2 mcg/min TITR CONNOR 7.5 mls/hr Titration Protocol 2 MCG/MIN Vasopressin 20 unit/ Sodium 101 mls @ 9.09 mls/hr 07/11/20 11:00 07/18/20 15:36 Chloride IV 0 units/min TITR CONNOR 0 mls/hr Titration Protocol 0.03 UNITS/MIN Piperacillin Sod/Tazobactam Sod 4.5 gm in 100 mls @ 200 mls/hr 07/18/20 13:00 07/20/20 00:53 Zosyn/Ns 4.5gm/100ml IV 200 mls/hr Q12H CONNOR Administration Protocol Sodium Chloride 100 mls @ 999 mls/hr 07/19/20 08:22 Nacl 0.9% IV PAM PRN Hypotension Insulin Human Regular 0 units 06/18/20 12:00 07/20/20 06:16 Insulin Regular, Human 100 Units/1 Ml SUB-Q Not Given Q6HR [facility] Protocol Multi-Ingred Cream/Lotion/Oil/Oint 1 applic 06/17/20 22:52 07/12/20 20:22 Mineral Oil/Petrolatum, White Ophth Oint 3.5 Gm OU 1 applic Q4HR PRN Administration Dry Eye(s) Ondansetron HCl 4 mg 06/17/20 14:17 Ondansetron 4 Mg/2 Ml Inj IV Q8H PRN Nausea And Vomiting Pantoprazole Sodium 40 mg 07/16/20 22:00 07/20/20 09:16 Pantoprazole 40 Mg Inj IV 40 mg BID CONNOR Administration Polyethylene Glycol 17 gm 06/23/20 15:00 07/20/20 09:16 Polyethylene Glycol 3350 17 Gm Powder PO Not Given QDAY CONNOR Quetiapine Fumarate 200 mg 06/28/20 13:00 07/20/20 09:16 Quetiapine 200 Mg Tab PO 200 mg BID CONNOR Administration Simple Syrup 15 ml 06/19/20 12:15 07/19/20 00:48 Simple Syrup 15 Ml FEEDTUBE 15 ml PRN PRN Administration Hypoglycemia Simple Syrup 30 ml 06/19/20 12:15 07/19/20 06:04 Simple Syrup 15 Ml FEEDTUBE 30 ml PRN PRN Administration Hypoglycemia Sodium Bicarbonate 325 mg 06/19/20 12:15 07/11/20 20:00 Sodium Bicarbonate 325 Mg Tab FEEDTUBE 325 mg PRN PRN Administration For Clogged Feeding Tube Sodium Bicarbonate 650 mg 07/04/20 10:00 07/20/20 08:16 Sodium Bicarbonate 650 Mg Tab PO 650 mg TID CONNOR Administration Sodium Chloride 10 ml 06/17/20 22:00 07/20/20 09:17 Sodium Chloride 0.9% 10 Ml Flush Syringe IV 10 ml BID CONNOR Administration Sodium Chloride 10 ml 06/17/20 14:17 Sodium Chloride 0.9% 10 Ml Flush Syringe IV PRN PRN LINE FLUSH Sodium Hypochlorite 1 applic 07/20/20 10:00 Sodium Hypochlorite, [place]'s 1/2 Strength (0.25%) 473 Ml Topical Soln TP BID CONNOR Sodium Polystyrene Sulfonate 15 gm 07/03/20 11:19 07/05/20 10:36 Sodium Polystyrene 15 Gm/60 Ml Oral Liqd PO 15 gm Q6HR PRN Administration Hyperkalemia Zinc Sulfate 220 mg 06/17/20 22:00 07/20/20 09:16 Zinc Sulfate 220 Mg Cap PO 220 mg BID CONNOR Administration
--- NOTE | 2020-07-20 11:18 | Progress Note ---
Assessment and Plan Acute hypoxemic respiratory failure due to COVID-19 Severe COVID infection Severe Sepsis with shock Bilateral pneumonia Acute kidney injury (GIRISH) with acute tubular necrosis (ATN) Elevated liver enzymes Obesity - get bariatric bed - avoid supine position as much as possible - keep peep at 10 re: bibasilar consolidation - continue monotherapy with Zosyn - continue bid protonix - wean vasopressors for target MAP > 65 mmHg (levophed @ 4 mics/min) - continue to follow cultures - continue care as below otherwise; - continue daily SAT's & SBT's as tolerated - continue tube feeds at goal rate as tolerated - continue HD/UF per nephrology team for toxin and volume clearance - continue bowel regimen - Continue to wean supplemental oxygen for O2 sats >92% - Monitor blood pressure closely while optimizing sedation,wean vasopressor support for MAP > 65 mmHg - VAP bundle addressed, aspiration precautions HOB >40 - continue lung protective strategies, permissive hypercapnic acceptable. - continue bronchodilators with pulmonary hygiene per RT - wean per pulmonary driven protocols otherwise - accuchecks with glycemic control per SSI (While critically ill target blood glucose of 140-180 mg/dL; avoid hypoglycemia) - sedation prn for target RASS -1 to -2 - continue enteral nutritional support at goal rate as tolerated - s/p antibiotics per ID recommendations - Monitor liver function test ,avoid hepatotoxic agents - azotemia per nephrology rec's - Avoid nephrotoxins, renally dose all medications, conservative fluid ma nagement - continue to avoid benzodiazepines, reduce the possibility of delirium, - prn analgesia per CPOT score - Maintenance of sleep-wake cycle, avoid delirium - Stress ulcer prophylaxis, Famotidine - PT/OT/ROM exercises - Mobility protocols for pressure ulcer prevention - CXR, ABG in am - CBC, CMP in am - Supportive transfusions to keep HgB >7g/dL - Monitor hemodynamics closely - continue other care per attending / other consultants COVID SPECIFIC INTERVENTIONS - s/p steroids: Dexamethasone - completed Remdesivir - monitor inflammatory markers prn - ferritin, D-dimer, CRP, LDH per facility protocol - continue anticoagulation per System Protocol based on d-dimer (on hold due to bleeding) - continue contact and airborne isolation CONDITION: CRITICAL PROGNOSIS: GUARDED CODE STATUS: FULL CODE The high probability of a clinically significant, sudden or life-threatening deterioration of the [respiratory, cardiovascular, hematologic & neurologic] system(s) required my full and direct attention, intervention and personal management. The aggregate critical care time was [32] minutes without overlap. Time includes spent on; [x] Data Review and interpretation [x] Patient assessment and monitoring of vital signs [x] Documentation [x] Medication orders and management He was evaluated in the context of the global COVID-19 pandemic, which neces sitated consideration that the patient might be at risk for infection with the virus that causes COVID-19. Institutional protocols and algorithms that pertain to the evaluation of patients at risk for COVID-19 are in a state of rapid change based on information released by regulatory bodies including the CDC and federal and state organizations. These policies and algorithms were followed during the patient's care in the ICU Please note that these policies, procedures and recommendations changed on a rapid basis. Subjective Date of service: 07/20/20 Principal diagnosis: ARF; Septic Shock; COVID-19 PNA; Atrial fibrillation; Obesity Interval history: Patient is seen today for: Ac hypoxemic respiratory failure; COVID-19; Severe Sepsis with shock; Zackery. pneumonia; GIRISH; Elevated liver enzymes; Obesity Seen and examined at bedside; 24hour events reviewed; nursing and respiratory care staff consulted; no adverse overnight events reported to me; resting in bed; remains on MVS; wound care ongoing on sacral decubitus with surgical debridement; no emesis or overt aspiration; leucocytosis improving Objective Vital Signs - 12hr 07/19/20 07/19/20 07/19/20 23:30 23:42 23:43 Temperature 96.7 F L Pulse Rate 108 H 103 H Pulse Rate [ From Monitor] Respiratory 13 14 Rate Blood Pressure 111/58 111/58 O2 Sat by Pulse 98 98 Oximetry 07/19/20 07/19/20 07/20/20 23:45 23:46 00:00 Temperature Pulse Rate 102 H 106 H 100 H Pulse Rate [ 124 H From Monitor] Respiratory 14 14 22 Rate Blood Pressure 121/49 121/49 145/87 O2 Sat by Pulse 98 98 98 Oximetry 07/20/20 07/20/20 07/20/20 00:02 00:16 00:30 Temperature Pulse Rate 96 H 104 H 105 H Pulse Rate [ From Monitor] Respiratory 21 15 22 Rate Blood Pressure 145/87 137/77 137/50 O2 Sat by Pulse 99 99 99 Oximetry 07/20/20 07/20/20 07/20/20 00:45 00:46 01:00 Temperature Pulse Rate 108 H 108 H 107 H Pulse Rate [ From Monitor] Respiratory 21 19 Rate Blood Pressure 137/50 122/52 122/52 O2 Sat by Pulse 99 99 100 Oximetry 07/20/20 07/20/20 07/20/20 01:15 01:30 01:45 Temperature Pulse Rate 97 H 99 H 91 H Pulse Rate [ From Monitor] Respiratory 17 17 13 Rate Blood Pressure 111/41 93/42 96/48 O2 Sat by Pulse 100 100 100 Oximetry 07/20/20 07/20/20 07/20/20 02:00 02:15 02:30 Temperature Pulse Rate 103 H 95 H 98 H Pulse Rate [ From Monitor] Respiratory 14 17 12 Rate Blood Pressure 105/49 101/41 86/44 O2 Sat by Pulse 100 100 100 Oximetry 07/20/20 07/20/20 07/20/20 02:46 03:00 03:16 Temperature Pulse Rate 107 H 103 H 98 H Pulse Rate [ From Monitor] Respiratory 13 12 14 Rate Blood Pressure 92/51 86/50 83/53 O2 Sat by Pulse 100 100 100 Oximetry 07/20/20 07/20/20 07/20/20 03:30 03:42 03:43 Temperature Pulse Rate 94 H 100 H 95 H Pulse Rate [ From Monitor] Respiratory 16 Rate Blood Pressure 72/45 O2 Sat by Pulse 100 Oximetry 07/20/20 07/20/20 07/20/20 03:46 03:59 04:00 Temperature 97.6 F Pulse Rate 88 104 H Pulse Rate [ 124 H From Monitor] Respiratory 16 18 Rate Blood Pressure 171/77 153/77 O2 Sat by Pulse 99 100 Oximetry 07/20/20 07/20/20 07/20/20 04:16 04:30 04:45 Temperature Pulse Rate 126 H 106 H 102 H Pulse Rate [ From Monitor] Respiratory 21 25 H 20 Rate Blood Pressure 168/63 143/57 117/55 O2 Sat by Pulse 99 99 100 Oximetry 07/20/20 07/20/20 07/20/20 05:00 05:15 05:28 Temperature Pulse Rate 97 H 106 H 118 H Pulse Rate [ From Monitor] Respiratory 22 16 Rate Blood Pressure 119/56 118/54 118/54 O2 Sat by Pulse 100 99 100 Oximetry 07/20/20 07/20/20 07/20/20 05:30 05:45 06:00 Temperature Pulse Rate 89 102 H 105 H Pulse Rate [ From Monitor] Respiratory 19 19 29 H Rate Blood Pressure 119/55 115/54 121/54 O2 Sat by Pulse 100 100 100 Oximetry 07/20/20 07/20/20 07/20/20 06:16 06:30 06:45 Temperature Pulse Rate 99 H 97 H 86 Pulse Rate [ From Monitor] Respiratory 20 25 H 18 Rate Blood Pressure 110/53 113/53 113/48 O2 Sat by Pulse 100 100 100 Oximetry 07/20/20 07/20/20 07/20/20 07:00 07:15 07:30 Temperature Pulse Rate 100 H 103 H 102 H Pulse Rate [ From Monitor] Respiratory 16 27 H 27 H Rate Blood Pressure 118/55 128/58 123/57 O2 Sat by Pulse 100 100 100 Oximetry 07/20/20 07/20/20 07/20/20 07:45 08:00 08:15 Temperature 97.8 F Pulse Rate 100 H 103 H 108 H Pulse Rate [ 104 H From Monitor] Respiratory 21 28 H 22 Rate Blood Pressure 113/59 111/61 123/57 O2 Sat by Pulse 100 100 100 Oximetry 07/20/20 07/20/20 07/20/20 08:30 08:34 08:46 Temperature Pulse Rate 114 H 107 H 108 H Pulse Rate [ From Monitor] Respiratory 17 17 Rate Blood Pressure 125/60 125/60 124/52 O2 Sat by Pulse 99 99 100 Oximetry 07/20/20 07/20/20 07/20/20 09:00 09:15 09:30 Temperature Pulse Rate 104 H 105 H 107 H Pulse Rate [ From Monitor] Respiratory 18 22 25 H Rate Blood Pressure 127/58 116/54 115/55 O2 Sat by Pulse 99 99 97 Oximetry 07/20/20 07/20/20 07/20/20 09:45 10:00 10:15 Temperature Pulse Rate 102 H 100 H 104 H Pulse Rate [ From Monitor] Respiratory 18 18 15 Rate Blood Pressure 106/40 106/40 92/43 O2 Sat by Pulse 99 99 99 Oximetry Constitutional: appears uncomfortable, other (morbidly obese, atraumatic, normocephalic, mild resp distress, orally intubated) Eyes: non-icteric ENT: oropharynx dry, other (ETT 24 cm TROY ) Neck: supple, no lymphadenopathy, other (Large , short neck) Effort: mildly labored Ascultation: Bilateral: diminished breath sounds, rhonchi (scant) Percussion: Bilateral: not dull Cardiovascular: irregular rhythm, other (S1,S2) Gastrointestinal: normoactive bowel sounds, soft, non-tender, non-distended (protuberant), other (lizeth-rectal tube slow oozing) Integumentary: rash, other (Femoral CVC, Newell catheter) Extremities: pink and warm, pulses normal, no ischemia or petechiae, edema (trace to 1+) Neurologic: non-focal exam (grossly), pupils equal and round, CN II-XII normal, other (unable to assess, sedated) Psychiatric: other (unable to assess, sedated) CBC and BMP: 07/20/20 06:07 07/19/20 09:15 ABG, PT/INR, D-dimer: ABG ABG pH 7.367 (7.320-7.450) 07/20/20 06:00 POC ABG pCO2 39.1 mmHg (32.0-48.0) 07/20/20 06:00 ABG pCO2 56.4 mm Hg 07/05/20 04:30 POC ABG pO2 86.2 mmHg (83-108) 07/20/20 06:00 ABG pO2 151.9 mm Hg (80.0-90.0) H 07/05/20 04:30 POC ABG HCO3 21.9 07/20/20 06:00 ABG O2 Saturation 96.7 (0-100) 07/20/20 06:00 PT/INR, D-dimer PT 18.2 Sec. (12.2-14.9) H 07/17/20 15:25 INR 1.52 (0.87-1.13) H 07/17/20 15:25 D-Dimer 6608.00 ng/mlDDU (0-234) H 07/03/20 14:50 Abnormal lab findings: Abnormal Labs 06/17/20 06/17/20 06/17/20 12:33 12:33 12:33 WBC 19.5 H RBC 5.18 H Hgb 15.5 H Hct MCHC RDW Lymph % (Auto) 3.8 L [place] % (Auto) Lymph # (Auto) 0.7 L [place] # (Auto) Eos # (Auto) Seg Neutrophils % Seg Neuts % (Manual) 99.0 H Lymphocytes % (Manual) 1.0 L Monocytes % (Manual) Nucleated RBC % Seg Neutrophils # 18.2 H Seg Neutrophils # Man 19.3 H Lymphocytes # (Manual) 0.2 L Monocytes # (Manual) Eosinophils # (Manual) PT 16.5 H INR 1.33 H APTT D-Dimer 1025.04 H Heparin Anti-Xa Level ABG pH POC ABG pCO2 POC ABG pO2 ABG pO2 ABG HCO3 ABG Hemoglobin ABG Oxyhemoglobin ABG Sodium ABG Potassium ABG Chloride ABG Glucose Carboxyhemoglobin Sodium 130 L Potassium 3.4 L Chloride 95.0 L Carbon Dioxide BUN 21 H Creatinine Glucose 137 H POC Glucose Lactic Acid Calcium 7.9 L Phosphorus Magnesium Ferritin Direct Bilirubin AST 84 H ALT 67 H Alkaline Phosphatase Lactate Dehydrogenase 437 H Total Creatine Kinase 310 H C-Reactive Protein 27.90 H Total Protein Albumin 2.9 L Triglycerides Arterial Blood Glucose Arterial Blood Ionized Calcium Urine Creatinine Urine Chloride Vancomycin Trough Coronavirus (PCR) Crossmatch 06/17/20 06/17/20 06/17/20 12:33 12:33 14:48 WBC RBC Hgb Hct MCHC RDW Lymph % (Auto) [place] % (Auto) Lymph # (Auto) [place] # (Auto) Eos # (Auto) Seg Neutrophils % Seg Neuts % (Manual) Lymphocytes % (Manual) Monocytes % (Manual) Nucleated RBC % Seg Neutrophils # Seg Neutrophils # Man Lymphocytes # (Manual) Monocytes # (Manual) Eosinophils # (Manual) PT INR APTT D-Dimer Heparin Anti-Xa Level ABG pH POC ABG pCO2 POC ABG pO2 ABG pO2 ABG HCO3 ABG Hemoglobin ABG Oxyhemoglobin ABG Sodium ABG Potassium ABG Chloride ABG Glucose Carboxyhemoglobin Sodium Potassium Chloride Carbon Dioxide BUN Creatinine Glucose POC Glucose Lactic Acid 2.50 H* 2.20 H* Calcium Phosphorus Magnesium Ferritin 2297.0 H Direct Bilirubin AST ALT Alkaline Phosphatase Lactate Dehydrogenase Total Creatine Kinase C-Reactive Protein Total Protein Albumin Triglycerides Arterial Blood Glucose Arterial Blood Ionized Calcium Urine Creatinine Urine Chloride Vancomycin Trough Coronavirus (PCR) Crossmatch 06/17/20 06/17/20 06/17/20 14:48 14:48 14:48 WBC RBC Hgb Hct MCHC RDW Lymph % (Auto) [place] % (Auto) Lymph # (Auto) [place] # (Auto) Eos # (Auto) Seg Neutrophils % Seg Neuts % (Manual) Lymphocytes % (Manual) Monocytes % (Manual) Nucleated RBC % Seg Neutrophils # Seg Neutrophils # Man Lymphocytes # (Manual) Monocytes # (Manual) Eosinophils # (Manual) PT INR APTT D-Dimer 939.89 H Heparin Anti-Xa Level ABG pH POC ABG pCO2 POC ABG pO2 ABG pO2 ABG HCO3 ABG Hemoglobin ABG Oxyhemoglobin ABG Sodium ABG Potassium ABG Chloride ABG Glucose Carboxyhemoglobin Sodium Potassium Chloride Carbon Dioxide BUN Creatinine Glucose 141 H POC Glucose Lactic Acid Calcium Phosphorus Magnesium Ferritin > 2000.0 H Direct Bilirubin AST ALT Alkaline Phosphatase Lactate Dehydrogenase 503 H Total Creatine Kinase C-Reactive Protein 24.70 H Total Protein Albumin Triglycerides Arterial Blood Glucose Arterial Blood Ionized Calcium Urine Creatinine Urine Chloride Vancomycin Trough Coronavirus (PCR) Crossmatch 06/17/20 06/17/20 06/17/20 16:54 19:39 23:43 WBC RBC Hgb Hct MCHC RDW Lymph % (Auto) [place] % (Auto) Lymph # (Auto) [place] # (Auto) Eos # (Auto) Seg Neutrophils % Seg Neuts % (Manual) Lymphocytes % (Manual) Monocytes % (Manual) Nucleated RBC % Seg Neutrophils # Seg Neutrophils # Man Lymphocytes # (Manual) Monocytes # (Manual) Eosinophils # (Manual) PT INR APTT D-Dimer Heparin Anti-Xa Level ABG pH 7.571 H POC ABG pCO2 24.3 L POC ABG pO2 41.6 L ABG pO2 ABG HCO3 ABG Hemoglobin ABG Oxyhemoglobin 84.0 L ABG Sodium 131.0 L ABG Potassium ABG Chloride ABG Glucose 163 H Carboxyhemoglobin Sodium Potassium Chloride Carbon Dioxide BUN Creatinine Glucose POC Glucose 185 H Lactic Acid 2.10 H* Calcium Phosphorus Magnesium Ferritin Direct Bilirubin AST ALT Alkaline Phosphatase Lactate Dehydrogenase Total Creatine Kinase C-Reactive Protein Total Protein Albumin Triglycerides Arterial Blood Glucose 163 H Arterial Blood Ionized Calcium 4.4 L Urine Creatinine Urine Chloride Vancomycin Trough Coronavirus (PCR) Crossmatch 06/18/20 06/18/20 06/18/20 00:17 00:23 03:55 WBC RBC Hgb Hct MCHC RDW Lymph % (Auto) [place] % (Auto) Lymph # (Auto) [place] # (Auto) Eos # (Auto) Seg Neutrophils % Seg Neuts % (Manual) Lymphocytes % (Manual) Monocytes % (Manual) Nucleated RBC % Seg Neutrophils # Seg Neutrophils # Man Lymphocytes # (Manual) Monocytes # (Manual) Eosinophils # (Manual) PT INR APTT D-Dimer Heparin Anti-Xa Level ABG pH POC ABG pCO2 POC ABG pO2 56.5 L 48.3 L ABG pO2 ABG HCO3 ABG Hemoglobin ABG Oxyhemoglobin 86.3 L 81.7 L ABG Sodium 132.9 L 131.0 L ABG Potassium ABG Chloride ABG Glucose 189 H 161 H Carboxyhemoglobin 0.4 L Sodium Potassium Chloride Carbon Dioxide BUN Creatinine Glucose POC Glucose Lactic Acid 3.80 H* Calcium Phosphorus Magnesium Ferritin Direct Bilirubin AST ALT Alkaline Phosphatase Lactate Dehydrogenase Total Creatine Kinase C-Reactive Protein Total Protein Albumin Triglycerides Arterial Blood Glucose 189 H 161 H Arterial Blood Ionized Calcium 4.3 L 4.2 L Urine Creatinine Urine Chloride Vancomycin Trough Coronavirus (PCR) Crossmatch 06/18/20 06/18/20 06/18/20 05:39 05:39 05:39 WBC 26.2 H RBC Hgb Hct MCHC RDW Lymph % (Auto) [place] % (Auto) Lymph # (Auto) [place] # (Auto) Eos # (Auto) Seg Neutrophils % Seg Neuts % (Manual) 90.0 H Lymphocytes % (Manual) 5.0 L Monocytes % (Manual) Nucleated RBC % Seg Neutrophils # Seg Neutrophils # Man 23.6 H Lymphocytes # (Manual) Monocytes # (Manual) 1.3 H Eosinophils # (Manual) PT INR APTT D-Dimer Heparin Anti-Xa Level ABG pH POC ABG pCO2 POC ABG pO2 ABG pO2 ABG HCO3 ABG Hemoglobin ABG Oxyhemoglobin ABG Sodium ABG Potassium ABG Chloride ABG Glucose Carboxyhemoglobin Sodium 135 L Potassium Chloride 97.5 L Carbon Dioxide 21 L BUN 39 H Creatinine 1.7 H D Glucose 168 H POC Glucose Lactic Acid 3.40 H* Calcium 7.2 L Phosphorus Magnesium Ferritin Direct Bilirubin AST ALT Alkaline Phosphatase Lactate Dehydrogenase Total Creatine Kinase C-Reactive Protein Total Protein Albumin Triglycerides Arterial Blood Glucose Arterial Blood Ionized Calcium Urine Creatinine Urine Chloride Vancomycin Trough Coronavirus (PCR) Crossmatch 06/18/20 06/18/20 06/18/20 07:24 09:00 10:10 WBC RBC Hgb Hct MCHC RDW Lymph % (Auto) [place] % (Auto) Lymph # (Auto) [place] # (Auto) Eos # (Auto) Seg Neutrophils % Seg Neuts % (Manual) Lymphocytes % (Manual) Monocytes % (Manual) Nucleated RBC % Seg Neutrophils # Seg Neutrophils # Man Lymphocytes # (Manual) Monocytes # (Manual) Eosinophils # (Manual) PT INR APTT D-Dimer Heparin Anti-Xa Level ABG pH POC ABG pCO2 POC ABG pO2 ABG pO2 ABG HCO3 ABG Hemoglobin ABG Oxyhemoglobin ABG Sodium ABG Potassium ABG Chloride ABG Glucose Carboxyhemoglobin Sodium Potassium Chloride Carbon Dioxide BUN Creatinine Glucose POC Glucose Lactic Acid 2.90 H* 3.20 H* Calcium Phosphorus Magnesium Ferritin Direct Bilirubin AST ALT Alkaline Phosphatase Lactate Dehydrogenase Total Creatine Kinase C-Reactive Protein Total Protein Albumin Triglycerides Arterial Blood Glucose Arterial Blood Ionized Calcium Urine Creatinine Urine Chloride Vancomycin Trough Coronavirus (PCR) Positive A Crossmatch 06/18/20 06/18/20 06/18/20 11:58 14:43 15:00 WBC RBC Hgb Hct MCHC RDW Lymph % (Auto) [place] % (Auto) Lymph # (Auto) [place] # (Auto) Eos # (Auto) Seg Neutrophils % Seg Neuts % (Manual) Lymphocytes % (Manual) Monocytes % (Manual) Nucleated RBC % Seg Neutrophils # Seg Neutrophils # Man Lymphocytes # (Manual) Monocytes # (Manual) Eosinophils # (Manual) PT INR APTT D-Dimer Heparin Anti-Xa Level ABG pH 7.303 L POC ABG pCO2 POC ABG pO2 82.3 L ABG pO2 ABG HCO3 ABG Hemoglobin ABG Oxyhemoglobin ABG Sodium 135.3 L ABG Potassium ABG Chloride ABG Glucose 215 H Carboxyhemoglobin 0.3 L Sodium Potassium Chloride Carbon Dioxide BUN Creatinine Glucose POC Glucose 209 H Lactic Acid Calcium Phosphorus Magnesium Ferritin Direct Bilirubin AST ALT Alkaline Phosphatase Lactate Dehydrogenase Total Creatine Kinase C-Reactive Protein Total Protein Albumin Triglycerides Arterial Blood Glucose 215 H Arterial Blood Ionized Calcium 4.2 L Urine Creatinine 192.4 H Urine Chloride 31.1 L Vancomycin Trough Coronavirus (PCR) Crossmatch 06/18/20 06/18/20 06/18/20 17:16 19:44 20:33 WBC RBC Hgb Hct MCHC RDW Lymph % (Auto) [place] % (Auto) Lymph # (Auto) [place] # (Auto) Eos # (Auto) Seg Neutrophils % Seg Neuts % (Manual) Lymphocytes % (Manual) Monocytes % (Manual) Nucleated RBC % Seg Neutrophils # Seg Neutrophils # Man Lymphocytes # (Manual) Monocytes # (Manual) Eosinophils # (Manual) PT INR APTT D-Dimer Heparin Anti-Xa Level ABG pH POC ABG pCO2 POC ABG pO2 ABG pO2 ABG HCO3 ABG Hemoglobin ABG Oxyhemoglobin ABG Sodium ABG Potassium ABG Chloride ABG Glucose Carboxyhemoglobin Sodium Potassium Chloride Carbon Dioxide BUN Creatinine Glucose POC Glucose 182 H Lactic Acid 3.00 H* Calcium Phosphorus Magnesium 2.70 H Ferritin Direct Bilirubin AST ALT Alkaline Phosphatase Lactate Dehydrogenase Total Creatine Kinase C-Reactive Protein Total Protein Albumin Triglycerides Arterial Blood Glucose Arterial Blood Ionized Calcium Urine Creatinine Urine Chloride Vancomycin Trough Coronavirus (PCR) Crossmatch 06/18/20 06/19/20 06/19/20 23:43 04:00 04:00 WBC 31.6 H RBC Hgb Hct MCHC RDW Lymph % (Auto) [place] % (Auto) Lymph # (Auto) [place] # (Auto) Eos # (Auto) Seg Neutrophils % Seg Neuts % (Manual) 98.0 H Lymphocytes % (Manual) 0.5 L Monocytes % (Manual) Nucleated RBC % Seg Neutrophils # Seg Neutrophils # Man 31.0 H Lymphocytes # (Manual) 0.2 L Monocytes # (Manual) Eosinophils # (Manual) PT INR APTT D-Dimer Heparin Anti-Xa Level ABG pH POC ABG pCO2 POC ABG pO2 ABG pO2 ABG HCO3 ABG Hemoglobin ABG Oxyhemoglobin ABG Sodium ABG Potassium ABG Chloride ABG Glucose Carboxyhemoglobin Sodium Potassium Chloride Carbon Dioxide BUN 56 H Creatinine 1.6 H Glucose 176 H POC Glucose 149 H Lactic Acid Calcium 7.0 L Phosphorus Magnesium Ferritin Direct Bilirubin AST 244 H ALT 159 H Alkaline Phosphatase Lactate Dehydrogenase Total Creatine Kinase C-Reactive Protein Total Protein 4.9 L D Albumin 2.5 L Triglycerides Arterial Blood Glucose Arterial Blood Ionized Calcium Urine Creatinine Urine Chloride Vancomycin Trough Coronavirus (PCR) Crossmatch 06/19/20 06/19/20 06/19/20 04:00 05:44 11:42 WBC RBC Hgb Hct MCHC RDW Lymph % (Auto) [place] % (Auto) Lymph # (Auto) [place] # (Auto) Eos # (Auto) Seg Neutrophils % Seg Neuts % (Manual) Lymphocytes % (Manual) Monocytes % (Manual) Nucleated RBC % Seg Neutrophils # Seg Neutrophils # Man Lymphocytes # (Manual) Monocytes # (Manual) Eosinophils # (Manual) PT INR APTT D-Dimer Heparin Anti-Xa Level ABG pH 7.265 L POC ABG pCO2 51.8 H POC ABG pO2 65.1 L ABG pO2 ABG HCO3 ABG Hemoglobin ABG Oxyhemoglobin ABG Sodium ABG Potassium ABG Chloride ABG Glucose 184 H Carboxyhemoglobin Sodium Potassium Chloride Carbon Dioxide BUN Creatinine Glucose POC Glucose 156 H 191 H Lactic Acid Calcium Phosphorus Magnesium Ferritin Direct Bilirubin AST ALT Alkaline Phosphatase Lactate Dehydrogenase Total Creatine Kinase C-Reactive Protein Total Protein Albumin Triglycerides Arterial Blood Glucose 184 H Arterial Blood Ionized Calcium 4.3 L Urine Creatinine Urine Chloride Vancomycin Trough Coronavirus (PCR) Crossmatch 06/19/20 06/19/20 06/19/20 12:30 17:16 18:36 WBC RBC Hgb Hct MCHC RDW Lymph % (Auto) [place] % (Auto) Lymph # (Auto) [place] # (Auto) Eos # (Auto) Seg Neutrophils % Seg Neuts % (Manual) Lymphocytes % (Manual) Monocytes % (Manual) Nucleated RBC % Seg Neutrophils # Seg Neutrophils # Man Lymphocytes # (Manual) Monocytes # (Manual) Eosinophils # (Manual) PT 16.4 H INR 1.32 H APTT D-Dimer Heparin Anti-Xa Level ABG pH 7.088 L POC ABG pCO2 78.1 H POC ABG pO2 208.3 H ABG pO2 ABG HCO3 ABG Hemoglobin ABG Oxyhemoglobin 98.3 H ABG Sodium ABG Potassium 5.0 H ABG Chloride ABG Glucose 182 H Carboxyhemoglobin 0.4 L Sodium Potassium Chloride Carbon Dioxide BUN Creatinine Glucose POC Glucose 154 H Lactic Acid Calcium Phosphorus Magnesium Ferritin Direct Bilirubin AST ALT Alkaline Phosphatase Lactate Dehydrogenase Total Creatine Kinase C-Reactive Protein Total Protein Albumin Triglycerides Arterial Blood Glucose 182 H Arterial Blood Ionized Calcium 4.3 L Urine Creatinine Urine Chloride Vancomycin Trough Coronavirus (PCR) Crossmatch 06/19/20 06/20/20 06/20/20 23:32 03:00 05:19 WBC RBC Hgb Hct MCHC RDW Lymph % (Auto) [place] % (Auto) Lymph # (Auto) [place] # (Auto) Eos # (Auto) Seg Neutrophils % Seg Neuts % (Manual) Lymphocytes % (Manual) Monocytes % (Manual) Nucleated RBC % Seg Neutrophils # Seg Neutrophils # Man Lymphocytes # (Manual) Monocytes # (Manual) Eosinophils # (Manual) PT INR APTT D-Dimer Heparin Anti-Xa Level 0.77 H ABG pH POC ABG pCO2 POC ABG pO2 ABG pO2 ABG HCO3 ABG Hemoglobin ABG Oxyhemoglobin ABG Sodium ABG Potassium ABG Chloride ABG Glucose Carboxyhemoglobin Sodium Potassium Chloride Carbon Dioxide BUN Creatinine Glucose POC Glucose 201 H 190 H Lactic Acid Calcium Phosphorus Magnesium Ferritin Direct Bilirubin AST ALT Alkaline Phosphatase Lactate Dehydrogenase Total Creatine Kinase C-Reactive Protein Total Protein Albumin Triglycerides Arterial Blood Glucose Arterial Blood Ionized Calcium Urine Creatinine Urine Chloride Vancomycin Trough Coronavirus (PCR) Crossmatch 06/20/20 06/20/20 06/20/20 08:25 08:25 11:36 WBC RBC Hgb Hct MCHC RDW Lymph % (Auto) [place] % (Auto) Lymph # (Auto) [place] # (Auto) Eos # (Auto) Seg Neutrophils % Seg Neuts % (Manual) Lymphocytes % (Manual) Monocytes % (Manual) Nucleated RBC % Seg Neutrophils # Seg Neutrophils # Man Lymphocytes # (Manual) Monocytes # (Manual) Eosinophils # (Manual) PT INR APTT D-Dimer Heparin Anti-Xa Level ABG pH POC ABG pCO2 POC ABG pO2 ABG pO2 ABG HCO3 ABG Hemoglobin ABG Oxyhemoglobin ABG Sodium ABG Potassium ABG Chloride ABG Glucose Carboxyhemoglobin Sodium 135 L Potassium 5.4 H Chloride 109.2 H Carbon Dioxide 19 L BUN 68 H Creatinine 2.5 H D Glucose 201 H POC Glucose 184 H Lactic Acid Calcium 5.5 L* D Phosphorus Magnesium Ferritin Direct Bilirubin AST 123 H ALT 86 H Alkaline Phosphatase Lactate Dehydrogenase Total Creatine Kinase C-Reactive Protein Total Protein 4.6 L Albumin 1.5 L Triglycerides Arterial Blood Glucose Arterial Blood Ionized Calcium Urine Creatinine Urine Chloride Vancomycin Trough 22.7 H Coronavirus (PCR) Crossmatch 06/20/20 06/20/20 06/20/20 11:40 17:28 20:00 WBC RBC Hgb Hct MCHC RDW Lymph % (Auto) [place] % (Auto) Lymph # (Auto) [place] # (Auto) Eos # (Auto) Seg Neutrophils % Seg Neuts % (Manual) Lymphocytes % (Manual) Monocytes % (Manual) Nucleated RBC % Seg Neutrophils # Seg Neutrophils # Man Lymphocytes # (Manual) Monocytes # (Manual) Eosinophils # (Manual) PT INR APTT D-Dimer Heparin Anti-Xa Level 0.89 H ABG pH 7.099 L POC ABG pCO2 61.1 H POC ABG pO2 ABG pO2 ABG HCO3 ABG Hemoglobin ABG Oxyhemoglobin ABG Sodium ABG Potassium 5.0 H ABG Chloride 111.0 H ABG Glucose 200 H Carboxyhemoglobin 0.4 L Sodium Potassium Chloride Carbon Dioxide BUN Creatinine Glucose POC Glucose 165 H Lactic Acid Calcium Phosphorus Magnesium Ferritin Direct Bilirubin AST ALT Alkaline Phosphatase Lactate Dehydrogenase Total Creatine Kinase C-Reactive Protein Total Protein Albumin Triglycerides Arterial Blood Glucose 200 H Arterial Blood Ionized Calcium 4.2 L Urine Creatinine Urine Chloride Vancomycin Trough Coronavirus (PCR) Crossmatch 06/20/20 06/21/20 06/21/20 23:29 05:00 05:20 WBC RBC Hgb Hct MCHC RDW Lymph % (Auto) [place] % (Auto) Lymph # (Auto) [place] # (Auto) Eos # (Auto) Seg Neutrophils % Seg Neuts % (Manual) Lymphocytes % (Manual) Monocytes % (Manual) Nucleated RBC % Seg Neutrophils # Seg Neutrophils # Man Lymphocytes # (Manual) Monocytes # (Manual) Eosinophils # (Manual) PT INR APTT D-Dimer Heparin Anti-Xa Level ABG pH POC ABG pCO2 POC ABG pO2 ABG pO2 ABG HCO3 ABG Hemoglobin ABG Oxyhemoglobin ABG Sodium ABG Potassium ABG Chloride ABG Glucose Carboxyhemoglobin Sodium Potassium Chloride 112.0 H Carbon Dioxide 20 L BUN 92 H Creatinine 3.9 H D Glucose 214 H POC Glucose 145 H 191 H Lactic Acid Calcium 6.5 L D Phosphorus Magnesium Ferritin Direct Bilirubin AST 98 H ALT 84 H Alkaline Phosphatase Lactate Dehydrogenase Total Creatine Kinase C-Reactive Protein Total Protein 4.6 L Albumin 2.1 L Triglycerides 180 H Arterial Blood Glucose Arterial Blood Ionized Calcium Urine Creatinine Urine Chloride Vancomycin Trough Coronavirus (PCR) Crossmatch 06/21/20 06/21/20 06/21/20 08:56 11:12 12:43 WBC RBC Hgb Hct MCHC RDW Lymph % (Auto) [place] % (Auto) Lymph # (Auto) [place] # (Auto) Eos # (Auto) Seg Neutrophils % Seg Neuts % (Manual) Lymphocytes % (Manual) Monocytes % (Manual) Nucleated RBC % Seg Neutrophils # Seg Neutrophils # Man Lymphocytes # (Manual) Monocytes # (Manual) Eosinophils # (Manual) PT INR APTT D-Dimer Heparin Anti-Xa Level 0.28 L ABG pH 7.184 L POC ABG pCO2 48.3 H POC ABG pO2 172.1 H ABG pO2 ABG HCO3 ABG Hemoglobin ABG Oxyhemoglobin 98.7 H ABG Sodium ABG Potassium 4.9 H ABG Chloride 112.0 H ABG Glucose 196 H Carboxyhemoglobin 0.2 L Sodium Potassium Chloride Carbon Dioxide BUN Creatinine Glucose POC Glucose 177 H Lactic Acid Calcium Phosphorus Magnesium Ferritin Direct Bilirubin AST ALT Alkaline Phosphatase Lactate Dehydrogenase Total Creatine Kinase C-Reactive Protein Total Protein Albumin Triglycerides Arterial Blood Glucose 196 H Arterial Blood Ionized Calcium 4.1 L Urine Creatinine Urine Chloride Vancomycin Trough Coronavirus (PCR) Crossmatch 06/21/20 06/21/20 06/22/20 16:31 Unknown 00:12 WBC RBC Hgb Hct MCHC RDW Lymph % (Auto) [place] % (Auto) Lymph # (Auto) [place] # (Auto) Eos # (Auto) Seg Neutrophils % Seg Neuts % (Manual) Lymphocytes % (Manual) Monocytes % (Manual) Nucleated RBC % Seg Neutrophils # Seg Neutrophils # Man Lymphocytes # (Manual) Monocytes # (Manual) Eosinophils # (Manual) PT INR APTT D-Dimer Heparin Anti-Xa Level 0.78 H ABG pH POC ABG pCO2 POC ABG pO2 ABG pO2 ABG HCO3 ABG Hemoglobin ABG Oxyhemoglobin ABG Sodium ABG Potassium ABG Chloride ABG Glucose Carboxyhemoglobin Sodium Potassium Chloride Carbon Dioxide BUN Creatinine Glucose POC Glucose 150 H 173 H Lactic Acid Calcium Phosphorus Magnesium Ferritin Direct Bilirubin AST ALT Alkaline Phosphatase Lactate Dehydrogenase Total Creatine Kinase C-Reactive Protein Total Protein Albumin Triglycerides Arterial Blood Glucose Arterial Blood Ionized Calcium Urine Creatinine Urine Chloride Vancomycin Trough Coronavirus (PCR) Crossmatch 06/22/20 06/22/20 06/22/20 04:00 05:04 05:30 WBC 33.9 H RBC Hgb 11.7 L Hct 35.2 L MCHC RDW 15.8 H Lymph % (Auto) [place] % (Auto) Lymph # (Auto) [place] # (Auto) Eos # (Auto) Seg Neutrophils % Seg Neuts % (Manual) 93.0 H Lymphocytes % (Manual) 5.0 L Monocytes % (Manual) Nucleated RBC % Seg Neutrophils # Seg Neutrophils # Man 31.5 H Lymphocytes # (Manual) Monocytes # (Manual) Eosinophils # (Manual) PT INR APTT D-Dimer Heparin Anti-Xa Level ABG pH 7.169 L POC ABG pCO2 POC ABG pO2 ABG pO2 ABG HCO3 ABG Hemoglobin ABG Oxyhemoglobin ABG Sodium ABG Potassium 5.1 H ABG Chloride 112.0 H ABG Glucose 186 H Carboxyhemoglobin 0.3 L Sodium Potassium Chloride Carbon Dioxide BUN Creatinine Glucose POC Glucose 161 H Lactic Acid Calcium Phosphorus Magnesium Ferritin Direct Bilirubin AST ALT Alkaline Phosphatase Lactate Dehydrogenase Total Creatine Kinase C-Reactive Protein Total Protein Albumin Triglycerides Arterial Blood Glucose 186 H Arterial Blood Ionized Calcium 4.1 L Urine Creatinine Urine Chloride Vancomycin Trough Coronavirus (PCR) Crossmatch 06/22/20 06/22/20 06/22/20 05:30 11:39 13:27 WBC RBC Hgb Hct MCHC RDW Lymph % (Auto) [place] % (Auto) Lymph # (Auto) [place] # (Auto) Eos # (Auto) Seg Neutrophils % Seg Neuts % (Manual) Lymphocytes % (Manual) Monocytes % (Manual) Nucleated RBC % Seg Neutrophils # Seg Neutrophils # Man Lymphocytes # (Manual) Monocytes # (Manual) Eosinophils # (Manual) PT INR APTT D-Dimer Heparin Anti-Xa Level ABG pH POC ABG pCO2 POC ABG pO2 ABG pO2 ABG HCO3 ABG Hemoglobin ABG Oxyhemoglobin ABG Sodium ABG Potassium ABG Chloride ABG Glucose Carboxyhemoglobin Sodium Potassium 5.7 H Chloride 111.3 H Carbon Dioxide 18 L BUN 112 H Creatinine 5.0 H Glucose 173 H POC Glucose 172 H 176 H Lactic Acid Calcium 6.7 L Phosphorus Magnesium Ferritin Direct Bilirubin AST ALT Alkaline Phosphatase Lactate Dehydrogenase Total Creatine Kinase C-Reactive Protein Total Protein Albumin Triglycerides Arterial Blood Glucose Arterial Blood Ionized Calcium Urine Creatinine Urine Chloride Vancomycin Trough Coronavirus (PCR) Crossmatch 06/22/20 06/22/20 06/22/20 14:37 17:00 17:40 WBC RBC Hgb Hct MCHC RDW Lymph % (Auto) [place] % (Auto) Lymph # (Auto) [place] # (Auto) Eos # (Auto) Seg Neutrophils % Seg Neuts % (Manual) Lymphocytes % (Manual) Monocytes % (Manual) Nucleated RBC % Seg Neutrophils # Seg Neutrophils # Man Lymphocytes # (Manual) Monocytes # (Manual) Eosinophils # (Manual) PT INR APTT D-Dimer Heparin Anti-Xa Level 1.32 H ABG pH POC ABG pCO2 POC ABG pO2 ABG pO2 ABG HCO3 ABG Hemoglobin ABG Oxyhemoglobin ABG Sodium ABG Potassium ABG Chloride ABG Glucose Carboxyhemoglobin Sodium Potassium Chloride Carbon Dioxide BUN Creatinine Glucose POC Glucose 171 H Lactic Acid Calcium Phosphorus Magnesium Ferritin Direct Bilirubin AST ALT Alkaline Phosphatase Lactate Dehydrogenase Total Creatine Kinase C-Reactive Protein 5.30 H Total Protein Albumin Triglycerides Arterial Blood Glucose Arterial Blood Ionized Calcium Urine Creatinine Urine Chloride Vancomycin Trough Coronavirus (PCR) Crossmatch 06/22/20 06/23/20 06/23/20 23:36 02:13 02:41 WBC RBC Hgb Hct MCHC RDW Lymph % (Auto) [place] % (Auto) Lymph # (Auto) [place] # (Auto) Eos # (Auto) Seg Neutrophils % Seg Neuts % (Manual) Lymphocytes % (Manual) Monocytes % (Manual) Nucleated RBC % Seg Neutrophils # Seg Neutrophils # Man Lymphocytes # (Manual) Monocytes # (Manual) Eosinophils # (Manual) PT INR APTT D-Dimer Heparin Anti-Xa Level 0.21 L ABG pH 7.318 L POC ABG pCO2 POC ABG pO2 157.5 H ABG pO2 ABG HCO3 ABG Hemoglobin ABG Oxyhemoglobin ABG Sodium 135.6 L ABG Potassium 4.6 H ABG Chloride 110.0 H ABG Glucose 169 H Carboxyhemoglobin Sodium Potassium Chloride Carbon Dioxide BUN Creatinine Glucose POC Glucose 155 H Lactic Acid Calcium Phosphorus Magnesium Ferritin Direct Bilirubin AST ALT Alkaline Phosphatase Lactate Dehydrogenase Total Creatine Kinase C-Reactive Protein Total Protein Albumin Triglycerides Arterial Blood Glucose 169 H Arterial Blood Ionized Calcium Urine Creatinine Urine Chloride Vancomycin Trough Coronavirus (PCR) Crossmatch 06/23/20 06/23/20 06/23/20 04:00 04:00 05:24 WBC 27.4 H RBC Hgb 11.3 L Hct 33.8 L MCHC RDW Lymph % (Auto) [place] % (Auto) Lymph # (Auto) [place] # (Auto) Eos # (Auto) Seg Neutrophils % Seg Neuts % (Manual) 93.0 H Lymphocytes % (Manual) 1.0 L Monocytes % (Manual) Nucleated RBC % 1.0 H Seg Neutrophils # Seg Neutrophils # Man 25.5 H Lymphocytes # (Manual) 0.3 L Monocytes # (Manual) 1.1 H Eosinophils # (Manual) PT INR APTT D-Dimer Heparin Anti-Xa Level ABG pH POC ABG pCO2 POC ABG pO2 ABG pO2 ABG HCO3 ABG Hemoglobin ABG Oxyhemoglobin ABG Sodium ABG Potassium ABG Chloride ABG Glucose Carboxyhemoglobin Sodium Potassium Chloride 107.6 H Carbon Dioxide 20 L BUN 100 H Creatinine 4.7 H Glucose 168 H POC Glucose 151 H Lactic Acid Calcium Phosphorus Magnesium Ferritin Direct Bilirubin AST ALT Alkaline Phosphatase Lactate Dehydrogenase Total Creatine Kinase C-Reactive Protein Total Protein Albumin Triglycerides Arterial Blood Glucose Arterial Blood Ionized Calcium Urine Creatinine Urine Chloride Vancomycin Trough Coronavirus (PCR) Crossmatch 06/23/20 06/23/20 06/23/20 11:30 17:18 23:50 WBC RBC Hgb Hct MCHC RDW Lymph % (Auto) [place] % (Auto) Lymph # (Auto) [place] # (Auto) Eos # (Auto) Seg Neutrophils % Seg Neuts % (Manual) Lymphocytes % (Manual) Monocytes % (Manual) Nucleated RBC % Seg Neutrophils # Seg Neutrophils # Man Lymphocytes # (Manual) Monocytes # (Manual) Eosinophils # (Manual) PT INR APTT D-Dimer Heparin Anti-Xa Level ABG pH POC ABG pCO2 POC ABG pO2 ABG pO2 ABG HCO3 ABG Hemoglobin ABG Oxyhemoglobin ABG Sodium ABG Potassium ABG Chloride ABG Glucose Carboxyhemoglobin Sodium Potassium Chloride Carbon Dioxide BUN Creatinine Glucose POC Glucose 157 H 156 H 162 H Lactic Acid Calcium Phosphorus Magnesium Ferritin Direct Bilirubin AST ALT Alkaline Phosphatase Lactate Dehydrogenase Total Creatine Kinase C-Reactive Protein Total Protein Albumin Triglycerides Arterial Blood Glucose Arterial Blood Ionized Calcium Urine Creatinine Urine Chloride Vancomycin Trough Coronavirus (PCR) Crossmatch 06/24/20 06/24/20 06/24/20 04:41 05:57 06:30 WBC 34.3 H RBC Hgb 10.9 L Hct 32.6 L MCHC RDW Lymph % (Auto) 2.0 L [place] % (Auto) Lymph # (Auto) 0.7 L [place] # (Auto) 1.2 H Eos # (Auto) Seg Neutrophils % Seg Neuts % (Manual) 96.0 H Lymphocytes % (Manual) 3.0 L Monocytes % (Manual) Nucleated RBC % Seg Neutrophils # 32.3 H Seg Neutrophils # Man 32.9 H Lymphocytes # (Manual) 1.0 L Monocytes # (Manual) Eosinophils # (Manual) PT INR APTT D-Dimer Heparin Anti-Xa Level ABG pH POC ABG pCO2 POC ABG pO2 71.1 L ABG pO2 ABG HCO3 ABG Hemoglobin ABG Oxyhemoglobin 92.4 L ABG Sodium 115.6 L ABG Potassium ABG Chloride ABG Glucose 159 H Carboxyhemoglobin Sodium Potassium Chloride Carbon Dioxide BUN Creatinine Glucose POC Glucose 143 H Lactic Acid Calcium Phosphorus Magnesium Ferritin Direct Bilirubin AST ALT Alkaline Phosphatase Lactate Dehydrogenase Total Creatine Kinase C-Reactive Protein Total Protein Albumin Triglycerides Arterial Blood Glucose 159 H Arterial Blood Ionized Calcium 4.2 L Urine Creatinine Urine Chloride Vancomycin Trough Coronavirus (PCR) Crossmatch 06/24/20 06/24/20 06/24/20 07:03 09:37 11:56 WBC RBC Hgb Hct MCHC RDW Lymph % (Auto) [place] % (Auto) Lymph # (Auto) [place] # (Auto) Eos # (Auto) Seg Neutrophils % Seg Neuts % (Manual) Lymphocytes % (Manual) Monocytes % (Manual) Nucleated RBC % Seg Neutrophils # Seg Neutrophils # Man Lymphocytes # (Manual) Monocytes # (Manual) Eosinophils # (Manual) PT INR APTT D-Dimer Heparin Anti-Xa Level 0.26 L ABG pH POC ABG pCO2 POC ABG pO2 ABG pO2 ABG HCO3 ABG Hemoglobin ABG Oxyhemoglobin ABG Sodium ABG Potassium ABG Chloride ABG Glucose Carboxyhemoglobin Sodium Potassium 5.1 H Chloride Carbon Dioxide BUN 103 H Creatinine 5.0 H Glucose 163 H POC Glucose 149 H Lactic Acid Calcium 7.6 L Phosphorus Magnesium Ferritin Direct Bilirubin AST ALT Alkaline Phosphatase Lactate Dehydrogenase Total Creatine Kinase C-Reactive Protein Total Protein Albumin Triglycerides Arterial Blood Glucose Arterial Blood Ionized Calcium Urine Creatinine Urine Chloride Vancomycin Trough Coronavirus (PCR) Crossmatch 06/24/20 06/25/20 06/25/20 18:09 01:05 03:00 WBC RBC Hgb 10.6 L Hct 32.1 L MCHC RDW Lymph % (Auto) [place] % (Auto) Lymph # (Auto) [place] # (Auto) Eos # (Auto) Seg Neutrophils % Seg Neuts % (Manual) Lymphocytes % (Manual) Monocytes % (Manual) Nucleated RBC % Seg Neutrophils # Seg Neutrophils # Man Lymphocytes # (Manual) Monocytes # (Manual) Eosinophils # (Manual) PT INR APTT D-Dimer Heparin Anti-Xa Level ABG pH POC ABG pCO2 POC ABG pO2 ABG pO2 ABG HCO3 ABG Hemoglobin ABG Oxyhemoglobin ABG Sodium ABG Potassium ABG Chloride ABG Glucose Carboxyhemoglobin Sodium Potassium Chloride Carbon Dioxide BUN Creatinine Glucose POC Glucose 141 H 137 H Lactic Acid Calcium Phosphorus Magnesium Ferritin Direct Bilirubin AST ALT Alkaline Phosphatase Lactate Dehydrogenase Total Creatine Kinase C-Reactive Protein Total Protein Albumin Triglycerides Arterial Blood Glucose Arterial Blood Ionized Calcium Urine Creatinine Urine Chloride Vancomycin Trough Coronavirus (PCR) Crossmatch 06/25/20 06/25/20 06/25/20 03:48 05:17 12:08 WBC RBC Hgb Hct MCHC RDW Lymph % (Auto) [place] % (Auto) Lymph # (Auto) [place] # (Auto) Eos # (Auto) Seg Neutrophils % Seg Neuts % (Manual) Lymphocytes % (Manual) Monocytes % (Manual) Nucleated RBC % Seg Neutrophils # Seg Neutrophils # Man Lymphocytes # (Manual) Monocytes # (Manual) Eosinophils # (Manual) PT INR APTT D-Dimer Heparin Anti-Xa Level ABG pH POC ABG pCO2 29.4 L POC ABG pO2 67.1 L ABG pO2 ABG HCO3 ABG Hemoglobin 11.5 L ABG Oxyhemoglobin ABG Sodium 124.1 L ABG Potassium 4.6 H ABG Chloride ABG Glucose 159 H Carboxyhemoglobin Sodium Potassium Chloride Carbon Dioxide BUN Creatinine Glucose POC Glucose 149 H 150 H Lactic Acid Calcium Phosphorus Magnesium Ferritin Direct Bilirubin AST ALT Alkaline Phosphatase Lactate Dehydrogenase Total Creatine Kinase C-Reactive Protein Total Protein Albumin Triglycerides Arterial Blood Glucose 159 H Arterial Blood Ionized Calcium 4.2 L Urine Creatinine Urine Chloride Vancomycin Trough Coronavirus (PCR) Crossmatch 06/25/20 06/25/20 06/25/20 16:27 16:35 17:27 WBC RBC Hgb Hct MCHC RDW Lymph % (Auto) [place] % (Auto) Lymph # (Auto) [place] # (Auto) Eos # (Auto) Seg Neutrophils % Seg Neuts % (Manual) Lymphocytes % (Manual) Monocytes % (Manual) Nucleated RBC % Seg Neutrophils # Seg Neutrophils # Man Lymphocytes # (Manual) Monocytes # (Manual) Eosinophils # (Manual) PT INR APTT D-Dimer Heparin Anti-Xa Level < 0.10 L ABG pH POC ABG pCO2 POC ABG pO2 ABG pO2 ABG HCO3 ABG Hemoglobin ABG Oxyhemoglobin ABG Sodium ABG Potassium ABG Chloride ABG Glucose Carboxyhemoglobin Sodium Potassium Chloride Carbon Dioxide BUN Creatinine Glucose POC Glucose 143 H 156 H Lactic Acid Calcium Phosphorus Magnesium Ferritin Direct Bilirubin AST ALT Alkaline Phosphatase Lactate Dehydrogenase Total Creatine Kinase C-Reactive Protein Total Protein Albumin Triglycerides Arterial Blood Glucose Arterial Blood Ionized Calcium Urine Creatinine Urine Chloride Vancomycin Trough Coronavirus (PCR) Crossmatch 06/25/20 06/25/20 06/25/20 20:00 20:55 23:10 WBC 32.7 H RBC 3.06 L Hgb 9.0 L 9.5 L Hct 26.7 L 28.6 L MCHC RDW Lymph % (Auto) [place] % (Auto) Lymph # (Auto) [place] # (Auto) Eos # (Auto) Seg Neutrophils % Seg Neuts % (Manual) Lymphocytes % (Manual) 2.0 L Monocytes % (Manual) Nucleated RBC % Seg Neutrophils # Seg Neutrophils # Man 30.7 H Lymphocytes # (Manual) 0.7 L Monocytes # (Manual) 1.3 H Eosinophils # (Manual) PT 17.7 H INR 1.47 H APTT 65.8 H* D-Dimer Heparin Anti-Xa Level ABG pH POC ABG pCO2 POC ABG pO2 ABG pO2 ABG HCO3 ABG Hemoglobin ABG Oxyhemoglobin ABG Sodium ABG Potassium ABG Chloride ABG Glucose Carboxyhemoglobin Sodium Potassium Chloride Carbon Dioxide BUN Creatinine Glucose POC Glucose Lactic Acid Calcium Phosphorus Magnesium Ferritin Direct Bilirubin AST ALT Alkaline Phosphatase Lactate Dehydrogenase Total Creatine Kinase C-Reactive Protein Total Protein Albumin Triglycerides Arterial Blood Glucose Arterial Blood Ionized Calcium Urine Creatinine Urine Chloride Vancomycin Trough Coronavirus (PCR) Crossmatch 06/25/20 06/26/20 06/26/20 23:14 01:30 03:25 WBC RBC Hgb Hct MCHC RDW Lymph % (Auto) [place] % (Auto) Lymph # (Auto) [place] # (Auto) Eos # (Auto) Seg Neutrophils % Seg Neuts % (Manual) Lymphocytes % (Manual) Monocytes % (Manual) Nucleated RBC % Seg Neutrophils # Seg Neutrophils # Man Lymphocytes # (Manual) Monocytes # (Manual) Eosinophils # (Manual) PT INR APTT D-Dimer Heparin Anti-Xa Level < 0.10 L ABG pH POC ABG pCO2 POC ABG pO2 ABG pO2 ABG HCO3 ABG Hemoglobin 11.8 L ABG Oxyhemoglobin ABG Sodium 127.1 L ABG Potassium 5.4 H ABG Chloride ABG Glucose 155 H Carboxyhemoglobin 0.3 L Sodium Potassium Chloride Carbon Dioxide BUN Creatinine Glucose POC Glucose 148 H Lactic Acid Calcium Phosphorus Magnesium Ferritin Direct Bilirubin AST ALT Alkaline Phosphatase Lactate Dehydrogenase Total Creatine Kinase C-Reactive Protein Total Protein Albumin Triglycerides Arterial Blood Glucose 155 H Arterial Blood Ionized Calcium 4.2 L Urine Creatinine Urine Chloride Vancomycin Trough Coronavirus (PCR) Crossmatch 06/26/20 06/26/20 06/26/20 03:59 05:14 05:47 WBC 36.5 H RBC 3.26 L Hgb 9.7 L Hct 28.2 L MCHC RDW Lymph % (Auto) [place] % (Auto) Lymph # (Auto) [place] # (Auto) Eos # (Auto) Seg Neutrophils % Seg Neuts % (Manual) 92.0 H Lymphocytes % (Manual) 4.0 L Monocytes % (Manual) Nucleated RBC % Seg Neutrophils # Seg Neutrophils # Man 33.6 H Lymphocytes # (Manual) Monocytes # (Manual) Eosinophils # (Manual) PT INR APTT D-Dimer Heparin Anti-Xa Level ABG pH POC ABG pCO2 POC ABG pO2 ABG pO2 ABG HCO3 ABG Hemoglobin ABG Oxyhemoglobin ABG Sodium ABG Potassium ABG Chloride ABG Glucose Carboxyhemoglobin Sodium Potassium 5.9 H Chloride Carbon Dioxide 20 L BUN 144 H Creatinine 6.4 H Glucose 149 H POC Glucose 128 H Lactic Acid Calcium 7.6 L Phosphorus Magnesium Ferritin Direct Bilirubin AST ALT Alkaline Phosphatase Lactate Dehydrogenase Total Creatine Kinase C-Reactive Protein Total Protein Albumin Triglycerides Arterial Blood Glucose Arterial Blood Ionized Calcium Urine Creatinine Urine Chloride Vancomycin Trough Coronavirus (PCR) Crossmatch 06/26/20 06/26/20 06/26/20 05:47 12:47 17:42 WBC RBC Hgb Hct MCHC RDW Lymph % (Auto) [place] % (Auto) Lymph # (Auto) [place] # (Auto) Eos # (Auto) Seg Neutrophils % Seg Neuts % (Manual) Lymphocytes % (Manual) Monocytes % (Manual) Nucleated RBC % Seg Neutrophils # Seg Neutrophils # Man Lymphocytes # (Manual) Monocytes # (Manual) Eosinophils # (Manual) PT 17.4 H INR 1.44 H APTT D-Dimer Heparin Anti-Xa Level ABG pH POC ABG pCO2 POC ABG pO2 ABG pO2 ABG HCO3 ABG Hemoglobin ABG Oxyhemoglobin ABG Sodium ABG Potassium ABG Chloride ABG Glucose Carboxyhemoglobin Sodium Potassium Chloride Carbon Dioxide BUN Creatinine Glucose POC Glucose 124 H 127 H Lactic Acid Calcium Phosphorus Magnesium Ferritin Direct Bilirubin AST ALT Alkaline Phosphatase Lactate Dehydrogenase Total Creatine Kinase C-Reactive Protein Total Protein Albumin Triglycerides Arterial Blood Glucose Arterial Blood Ionized Calcium Urine Creatinine Urine Chloride Vancomycin Trough Coronavirus (PCR) Crossmatch 06/26/20 06/27/20 06/27/20 23:30 03:32 04:00 WBC RBC Hgb 8.7 L Hct 26.4 L MCHC RDW Lymph % (Auto) [place] % (Auto) Lymph # (Auto) [place] # (Auto) Eos # (Auto) Seg Neutrophils % Seg Neuts % (Manual) Lymphocytes % (Manual) Monocytes % (Manual) Nucleated RBC % Seg Neutrophils # Seg Neutrophils # Man Lymphocytes # (Manual) Monocytes # (Manual) Eosinophils # (Manual) PT INR APTT D-Dimer Heparin Anti-Xa Level ABG pH 7.298 L POC ABG pCO2 POC ABG pO2 ABG pO2 ABG HCO3 ABG Hemoglobin 9.6 L ABG Oxyhemoglobin ABG Sodium 124.4 L ABG Potassium 6.6 H ABG Chloride ABG Glucose 136 H Carboxyhemoglobin Sodium Potassium Chloride Carbon Dioxide BUN Creatinine Glucose POC Glucose 123 H Lactic Acid Calcium Phosphorus Magnesium Ferritin Direct Bilirubin AST ALT Alkaline Phosphatase Lactate Dehydrogenase Total Creatine Kinase C-Reactive Protein Total Protein Albumin Triglycerides Arterial Blood Glucose 136 H Arterial Blood Ionized Calcium 4.1 L Urine Creatinine Urine Chloride Vancomycin Trough Coronavirus (PCR) Crossmatch 06/27/20 06/27/20 06/27/20 05:26 10:14 11:58 WBC RBC Hgb Hct MCHC RDW Lymph % (Auto) [place] % (Auto) Lymph # (Auto) [place] # (Auto) Eos # (Auto) Seg Neutrophils % Seg Neuts % (Manual) Lymphocytes % (Manual) Monocytes % (Manual) Nucleated RBC % Seg Neutrophils # Seg Neutrophils # Man Lymphocytes # (Manual) Monocytes # (Manual) Eosinophils # (Manual) PT INR APTT D-Dimer Heparin Anti-Xa Level ABG pH POC ABG pCO2 POC ABG pO2 ABG pO2 ABG HCO3 ABG Hemoglobin ABG Oxyhemoglobin ABG Sodium ABG Potassium ABG Chloride ABG Glucose Carboxyhemoglobin Sodium 136 L Potassium 7.0 H* Chloride 97.8 L Carbon Dioxide BUN 172 H Creatinine 7.4 H Glucose 129 H POC Glucose 124 H 115 H Lactic Acid Calcium 7.6 L Phosphorus Magnesium Ferritin Direct Bilirubin AST ALT Alkaline Phosphatase Lactate Dehydrogenase Total Creatine Kinase C-Reactive Protein Total Protein Albumin Triglycerides Arterial Blood Glucose Arterial Blood Ionized Calcium Urine Creatinine Urine Chloride Vancomycin Trough Coronavirus (PCR) Crossmatch 06/27/20 06/27/20 06/27/20 17:32 18:30 23:24 WBC RBC Hgb Hct MCHC RDW Lymph % (Auto) [place] % (Auto) Lymph # (Auto) [place] # (Auto) Eos # (Auto) Seg Neutrophils % Seg Neuts % (Manual) Lymphocytes % (Manual) Monocytes % (Manual) Nucleated RBC % Seg Neutrophils # Seg Neutrophils # Man Lymphocytes # (Manual) Monocytes # (Manual) Eosinophils # (Manual) PT INR APTT D-Dimer Heparin Anti-Xa Level ABG pH POC ABG pCO2 POC ABG pO2 ABG pO2 ABG HCO3 ABG Hemoglobin ABG Oxyhemoglobin ABG Sodium ABG Potassium ABG Chloride ABG Glucose Carboxyhemoglobin Sodium Potassium 7.3 H* Chloride Carbon Dioxide BUN Creatinine Glucose POC Glucose 122 H 116 H Lactic Acid Calcium Phosphorus Magnesium Ferritin Direct Bilirubin AST ALT Alkaline Phosphatase Lactate Dehydrogenase Total Creatine Kinase C-Reactive Protein Total Protein Albumin Triglycerides Arterial Blood Glucose Arterial Blood Ionized Calcium Urine Creatinine Urine Chloride Vancomycin Trough Coronavirus (PCR) Crossmatch 06/28/20 06/28/20 06/28/20 00:00 02:16 05:37 WBC RBC Hgb Hct MCHC RDW Lymph % (Auto) [place] % (Auto) Lymph # (Auto) [place] # (Auto) Eos # (Auto) Seg Neutrophils % Seg Neuts % (Manual) Lymphocytes % (Manual) Monocytes % (Manual) Nucleated RBC % Seg Neutrophils # Seg Neutrophils # Man Lymphocytes # (Manual) Monocytes # (Manual) Eosinophils # (Manual) PT INR APTT D-Dimer Heparin Anti-Xa Level ABG pH POC ABG pCO2 POC ABG pO2 79.0 L ABG pO2 ABG HCO3 ABG Hemoglobin 11.7 L ABG Oxyhemoglobin ABG Sodium 128.1 L ABG Potassium 6.6 H ABG Chloride ABG Glucose 124 H Carboxyhemoglobin Sodium Potassium 7.3 H* Chloride Carbon Dioxide BUN Creatinine Glucose POC Glucose 115 H Lactic Acid Calcium Phosphorus Magnesium Ferritin Direct Bilirubin AST ALT Alkaline Phosphatase Lactate Dehydrogenase Total Creatine Kinase C-Reactive Protein Total Protein Albumin Triglycerides Arterial Blood Glucose 124 H Arterial Blood Ionized Calcium 4.2 L Urine Creatinine Urine Chloride Vancomycin Trough Coronavirus (PCR) Crossmatch 06/28/20 06/28/20 06/28/20 10:03 10:03 11:51 WBC 33.6 H RBC 3.03 L Hgb 8.9 L Hct 27.0 L MCHC RDW Lymph % (Auto) [place] % (Auto) Lymph # (Auto) [place] # (Auto) Eos # (Auto) Seg Neutrophils % Seg Neuts % (Manual) Lymphocytes % (Manual) Monocytes % (Manual) Nucleated RBC % Seg Neutrophils # Seg Neutrophils # Man Lymphocytes # (Manual) Monocytes # (Manual) Eosinophils # (Manual) PT INR APTT D-Dimer Heparin Anti-Xa Level ABG pH POC ABG pCO2 POC ABG pO2 ABG pO2 ABG HCO3 ABG Hemoglobin ABG Oxyhemoglobin ABG Sodium ABG Potassium ABG Chloride ABG Glucose Carboxyhemoglobin Sodium 136 L Potassium 6.5 H* Chloride Carbon Dioxide 20 L BUN 129 H Creatinine 5.8 H Glucose 113 H POC Glucose 107 H Lactic Acid Calcium 7.6 L Phosphorus Magnesium Ferritin Direct Bilirubin AST ALT Alkaline Phosphatase Lactate Dehydrogenase Total Creatine Kinase C-Reactive Protein Total Protein Albumin Triglycerides Arterial Blood Glucose Arterial Blood Ionized Calcium Urine Creatinine Urine Chloride Vancomycin Trough Coronavirus (PCR) Crossmatch 06/28/20 06/28/20 06/29/20 17:45 Unknown 03:15 WBC RBC Hgb Hct MCHC RDW Lymph % (Auto) [place] % (Auto) Lymph # (Auto) [place] # (Auto) Eos # (Auto) Seg Neutrophils % Seg Neuts % (Manual) Lymphocytes % (Manual) Monocytes % (Manual) Nucleated RBC % Seg Neutrophils # Seg Neutrophils # Man Lymphocytes # (Manual) Monocytes # (Manual) Eosinophils # (Manual) PT INR APTT D-Dimer Heparin Anti-Xa Level ABG pH POC ABG pCO2 POC ABG pO2 ABG pO2 ABG HCO3 ABG Hemoglobin 7.8 L ABG Oxyhemoglobin ABG Sodium 127.4 L ABG Potassium 5.5 H ABG Chloride 97.0 L ABG Glucose 96 H Carboxyhemoglobin Sodium Potassium 5.4 H Chloride Carbon Dioxide BUN Creatinine Glucose POC Glucose 117 H Lactic Acid Calcium Phosphorus Magnesium Ferritin Direct Bilirubin AST ALT Alkaline Phosphatase Lactate Dehydrogenase Total Creatine Kinase C-Reactive Protein Total Protein Albumin Triglycerides Arterial Blood Glucose 96 H Arterial Blood Ionized Calcium 4.0 L Urine Creatinine Urine Chloride Vancomycin Trough Coronavirus (PCR) Crossmatch 06/29/20 06/29/20 06/29/20 03:45 Unknown Unknown WBC RBC Hgb Hct MCHC RDW Lymph % (Auto) [place] % (Auto) Lymph # (Auto) [place] # (Auto) Eos # (Auto) Seg Neutrophils % Seg Neuts % (Manual) Lymphocytes % (Manual) Monocytes % (Manual) Nucleated RBC % Seg Neutrophils # Seg Neutrophils # Man Lymphocytes # (Manual) Monocytes # (Manual) Eosinophils # (Manual) PT INR APTT D-Dimer Heparin Anti-Xa Level ABG pH POC ABG pCO2 POC ABG pO2 ABG pO2 ABG HCO3 ABG Hemoglobin ABG Oxyhemoglobin ABG Sodium ABG Potassium ABG Chloride ABG Glucose Carboxyhemoglobin Sodium 135 L Potassium 6.0 H 6.1 H* Chloride 94.8 L Carbon Dioxide BUN 109 H 114 H Creatinine 5.5 H Glucose POC Glucose Lactic Acid Calcium 7.4 L Phosphorus Magnesium Ferritin Direct Bilirubin AST 47 H ALT Alkaline Phosphatase Lactate Dehydrogenase Total Creatine Kinase C-Reactive Protein Total Protein 4.9 L Albumin 2.2 L Triglycerides Arterial Blood Glucose Arterial Blood Ionized Calcium Urine Creatinine Urine Chloride Vancomycin Trough Coronavirus (PCR) Crossmatch 06/29/20 06/29/20 06/30/20 Unknown Unknown 03:32 WBC 20.7 H RBC 2.57 L Hgb 7.6 L Hct 23.0 L MCHC RDW Lymph % (Auto) [place] % (Auto) Lymph # (Auto) [place] # (Auto) Eos # (Auto) Seg Neutrophils % Seg Neuts % (Manual) Lymphocytes % (Manual) Monocytes % (Manual) Nucleated RBC % Seg Neutrophils # Seg Neutrophils # Man Lymphocytes # (Manual) Monocytes # (Manual) Eosinophils # (Manual) PT INR APTT D-Dimer Heparin Anti-Xa Level ABG pH POC ABG pCO2 POC ABG pO2 ABG pO2 ABG HCO3 ABG Hemoglobin 11.4 L ABG Oxyhemoglobin ABG Sodium 130.1 L ABG Potassium 5.0 H ABG Chloride ABG Glucose Carboxyhemoglobin Sodium Potassium Chloride Carbon Dioxide BUN Creatinine Glucose POC Glucose Lactic Acid Calcium Phosphorus Magnesium Ferritin Direct Bilirubin AST ALT Alkaline Phosphatase Lactate Dehydrogenase Total Creatine Kinase 618 H C-Reactive Protein Total Protein Albumin Triglycerides Arterial Blood Glucose Arterial Blood Ionized Calcium 3.9 L Urine Creatinine Urine Chloride Vancomycin Trough Coronavirus (PCR) Crossmatch 06/30/20 06/30/20 06/30/20 03:50 03:50 11:39 WBC 13.1 H RBC Hgb Hct MCHC RDW Lymph % (Auto) [place] % (Auto) Lymph # (Auto) [place] # (Auto) Eos # (Auto) Seg Neutrophils % Seg Neuts % (Manual) 95.0 H Lymphocytes % (Manual) 3.0 L Monocytes % (Manual) Nucleated RBC % Seg Neutrophils # Seg Neutrophils # Man 12.4 H Lymphocytes # (Manual) 0.4 L Monocytes # (Manual) Eosinophils # (Manual) PT INR APTT D-Dimer Heparin Anti-Xa Level ABG pH POC ABG pCO2 POC ABG pO2 ABG pO2 ABG HCO3 ABG Hemoglobin ABG Oxyhemoglobin ABG Sodium ABG Potassium ABG Chloride ABG Glucose Carboxyhemoglobin Sodium 135 L Potassium 5.4 H D Chloride 93.6 L Carbon Dioxide BUN 85 H Creatinine 4.6 H Glucose POC Glucose 111 H Lactic Acid Calcium 7.1 L Phosphorus 9.40 H Magnesium Ferritin Direct Bilirubin AST ALT Alkaline Phosphatase Lactate Dehydrogenase Total Creatine Kinase C-Reactive Protein Total Protein Albumin Triglycerides Arterial Blood Glucose Arterial Blood Ionized Calcium Urine Creatinine Urine Chloride Vancomycin Trough Coronavirus (PCR) Crossmatch 06/30/20 06/30/20 07/01/20 13:12 Unknown 03:19 WBC RBC Hgb 7.8 L D Hct 23.2 L D MCHC RDW Lymph % (Auto) [place] % (Auto) Lymph # (Auto) [place] # (Auto) Eos # (Auto) Seg Neutrophils % Seg Neuts % (Manual) Lymphocytes % (Manual) Monocytes % (Manual) Nucleated RBC % Seg Neutrophils # Seg Neutrophils # Man Lymphocytes # (Manual) Monocytes # (Manual) Eosinophils # (Manual) PT INR APTT D-Dimer Heparin Anti-Xa Level ABG pH 7.461 H POC ABG pCO2 POC ABG pO2 77.2 L ABG pO2 ABG HCO3 ABG Hemoglobin 6.9 L ABG Oxyhemoglobin ABG Sodium 128.5 L ABG Potassium ABG Chloride 97.0 L ABG Glucose Carboxyhemoglobin Sodium Potassium Chloride Carbon Dioxide BUN Creatinine Glucose POC Glucose Lactic Acid Calcium Phosphorus Magnesium Ferritin Direct Bilirubin AST ALT Alkaline Phosphatase Lactate Dehydrogenase Total Creatine Kinase C-Reactive Protein Total Protein Albumin Triglycerides Arterial Blood Glucose Arterial Blood Ionized Calcium 3.7 L Urine Creatinine Urine Chloride Vancomycin Trough Coronavirus (PCR) Positive A Crossmatch 07/01/20 07/01/20 07/01/20 06:00 06:00 11:04 WBC 16.7 H RBC 2.16 L Hgb 6.4 L Hct 19.2 L* MCHC RDW Lymph % (Auto) [place] % (Auto) Lymph # (Auto) [place] # (Auto) Eos # (Auto) Seg Neutrophils % Seg Neuts % (Manual) Lymphocytes % (Manual) Monocytes % (Manual) Nucleated RBC % Seg Neutrophils # Seg Neutrophils # Man Lymphocytes # (Manual) Monocytes # (Manual) Eosinophils # (Manual) PT INR APTT D-Dimer Heparin Anti-Xa Level ABG pH POC ABG pCO2 POC ABG pO2 ABG pO2 ABG HCO3 ABG Hemoglobin ABG Oxyhemoglobin ABG Sodium ABG Potassium ABG Chloride ABG Glucose Carboxyhemoglobin Sodium 136 L Potassium Chloride 95.8 L Carbon Dioxide BUN 72 H Creatinine 4.3 H Glucose POC Glucose Lactic Acid Calcium 6.7 L Phosphorus Magnesium Ferritin Direct Bilirubin AST ALT Alkaline Phosphatase Lactate Dehydrogenase Total Creatine Kinase C-Reactive Protein Total Protein Albumin Triglycerides 250 H Arterial Blood Glucose Arterial Blood Ionized Calcium Urine Creatinine Urine Chloride Vancomycin Trough Coronavirus (PCR) Crossmatch See Detail 07/02/20 07/02/20 07/02/20 04:44 06:00 11:33 WBC 14.6 H RBC 2.47 L Hgb 7.4 L Hct 21.8 L MCHC RDW Lymph % (Auto) [place] % (Auto) Lymph # (Auto) [place] # (Auto) Eos # (Auto) Seg Neutrophils % Seg Neuts % (Manual) Lymphocytes % (Manual) Monocytes % (Manual) Nucleated RBC % Seg Neutrophils # Seg Neutrophils # Man Lymphocytes # (Manual) Monocytes # (Manual) Eosinophils # (Manual) PT INR APTT D-Dimer Heparin Anti-Xa Level ABG pH 7.457 H POC ABG pCO2 POC ABG pO2 79.4 L ABG pO2 ABG HCO3 ABG Hemoglobin 8.5 L ABG Oxyhemoglobin ABG Sodium 128.4 L ABG Potassium ABG Chloride 97.0 L ABG Glucose 100 H Carboxyhemoglobin Sodium 133 L Potassium 5.2 H Chloride 93.3 L Carbon Dioxide BUN 66 H Creatinine 4.1 H Glucose 102 H POC Glucose Lactic Acid Calcium 7.2 L Phosphorus Magnesium Ferritin Direct Bilirubin AST ALT Alkaline Phosphatase Lactate Dehydrogenase Total Creatine Kinase C-Reactive Protein Total Protein Albumin Triglycerides Arterial Blood Glucose 100 H Arterial Blood Ionized Calcium 3.9 L Urine Creatinine Urine Chloride Vancomycin Trough Coronavirus (PCR) Crossmatch 07/02/20 07/03/20 07/03/20 11:33 03:54 09:15 WBC 16.6 H RBC 2.44 L Hgb 7.3 L Hct 21.4 L MCHC RDW Lymph % (Auto) [place] % (Auto) Lymph # (Auto) [place] # (Auto) Eos # (Auto) Seg Neutrophils % Seg Neuts % (Manual) Lymphocytes % (Manual) Monocytes % (Manual) Nucleated RBC % Seg Neutrophils # Seg Neutrophils # Man Lymphocytes # (Manual) Monocytes # (Manual) Eosinophils # (Manual) PT INR APTT D-Dimer Heparin Anti-Xa Level ABG pH POC ABG pCO2 POC ABG pO2 66.1 L ABG pO2 ABG HCO3 ABG Hemoglobin 8.0 L ABG Oxyhemoglobin ABG Sodium 124.6 L ABG Potassium 5.5 H ABG Chloride 96.0 L ABG Glucose 111 H Carboxyhemoglobin Sodium Potassium Chloride Carbon Dioxide BUN Creatinine Glucose POC Glucose Lactic Acid Calcium Phosphorus Magnesium Ferritin Direct Bilirubin 0.7 H AST 94 H ALT 60 H Alkaline Phosphatase Lactate Dehydrogenase Total Creatine Kinase C-Reactive Protein Total Protein 4.4 L Albumin 1.9 L Triglycerides Arterial Blood Glucose 111 H Arterial Blood Ionized Calcium 3.8 L Urine Creatinine Urine Chloride Vancomycin Trough Coronavirus (PCR) Crossmatch 07/03/20 07/03/20 07/03/20 09:15 10:10 14:50 WBC RBC Hgb Hct MCHC RDW Lymph % (Auto) [place] % (Auto) Lymph # (Auto) [place] # (Auto) Eos # (Auto) Seg Neutrophils % Seg Neuts % (Manual) Lymphocytes % (Manual) Monocytes % (Manual) Nucleated RBC % Seg Neutrophils # Seg Neutrophils # Man Lymphocytes # (Manual) Monocytes # (Manual) Eosinophils # (Manual) PT INR APTT D-Dimer 6608.00 H Heparin Anti-Xa Level ABG pH POC ABG pCO2 POC ABG pO2 ABG pO2 ABG HCO3 ABG Hemoglobin ABG Oxyhemoglobin ABG Sodium ABG Potassium ABG Chloride ABG Glucose Carboxyhemoglobin Sodium 133 L Potassium 6.2 H* Chloride 93.1 L Carbon Dioxide BUN 89 H Creatinine 5.1 H Glucose POC Glucose Lactic Acid Calcium 7.0 L Phosphorus Magnesium Ferritin Direct Bilirubin AST ALT Alkaline Phosphatase Lactate Dehydrogenase Total Creatine Kinase C-Reactive Protein Total Protein Albumin Triglycerides Arterial Blood Glucose Arterial Blood Ionized Calcium Urine Creatinine Urine Chloride Vancomycin Trough Coronavirus (PCR) Positive A Crossmatch 07/03/20 07/03/20 07/03/20 14:50 14:50 14:50 WBC RBC Hgb Hct MCHC RDW Lymph % (Auto) [place] % (Auto) Lymph # (Auto) [place] # (Auto) Eos # (Auto) Seg Neutrophils % Seg Neuts % (Manual) Lymphocytes % (Manual) Monocytes % (Manual) Nucleated RBC % Seg Neutrophils # Seg Neutrophils # Man Lymphocytes # (Manual) Monocytes # (Manual) Eosinophils # (Manual) PT INR APTT D-Dimer Heparin Anti-Xa Level ABG pH POC ABG pCO2 POC ABG pO2 ABG pO2 ABG HCO3 ABG Hemoglobin ABG Oxyhemoglobin ABG Sodium ABG Potassium ABG Chloride ABG Glucose Carboxyhemoglobin Sodium Potassium Chloride Carbon Dioxide BUN Creatinine Glucose POC Glucose Lactic Acid < 0.20 L Calcium Phosphorus Magnesium Ferritin 1171.0 H Direct Bilirubin AST ALT Alkaline Phosphatase Lactate Dehydrogenase 525 H Total Creatine Kinase C-Reactive Protein 31.50 H Total Protein Albumin Triglycerides Arterial Blood Glucose Arterial Blood Ionized Calcium Urine Creatinine Urine Chloride Vancomycin Trough Coronavirus (PCR) Crossmatch 07/03/20 07/04/20 07/04/20 16:47 05:20 05:20 WBC 11.8 H RBC 2.32 L Hgb 6.7 L Hct 20.8 L MCHC RDW Lymph % (Auto) 2.6 L [place] % (Auto) Lymph # (Auto) 0.3 L [place] # (Auto) Eos # (Auto) Seg Neutrophils % Seg Neuts % (Manual) Lymphocytes % (Manual) Monocytes % (Manual) Nucleated RBC % Seg Neutrophils # 11.0 H Seg Neutrophils # Man Lymphocytes # (Manual) Monocytes # (Manual) Eosinophils # (Manual) PT INR APTT D-Dimer Heparin Anti-Xa Level ABG pH POC ABG pCO2 POC ABG pO2 ABG pO2 ABG HCO3 ABG Hemoglobin ABG Oxyhemoglobin ABG Sodium ABG Potassium ABG Chloride ABG Glucose Carboxyhemoglobin Sodium Potassium 6.0 H Chloride 97.8 L Carbon Dioxide BUN 75 H Creatinine 4.5 H Glucose 121 H POC Glucose 107 H Lactic Acid Calcium 7.9 L Phosphorus Magnesium Ferritin Direct Bilirubin AST ALT Alkaline Phosphatase Lactate Dehydrogenase Total Creatine Kinase C-Reactive Protein Total Protein Albumin Triglycerides Arterial Blood Glucose Arterial Blood Ionized Calcium Urine Creatinine Urine Chloride Vancomycin Trough Coronavirus (PCR) Crossmatch 07/04/20 07/04/20 07/04/20 05:20 05:50 09:25 WBC RBC Hgb Hct MCHC RDW Lymph % (Auto) [place] % (Auto) Lymph # (Auto) [place] # (Auto) Eos # (Auto) Seg Neutrophils % Seg Neuts % (Manual) Lymphocytes % (Manual) Monocytes % (Manual) Nucleated RBC % Seg Neutrophils # Seg Neutrophils # Man Lymphocytes # (Manual) Monocytes # (Manual) Eosinophils # (Manual) PT INR APTT D-Dimer Heparin Anti-Xa Level ABG pH 7.324 L POC ABG pCO2 POC ABG pO2 ABG pO2 98.9 H ABG HCO3 26.8 H ABG Hemoglobin < 5.1 L ABG Oxyhemoglobin ABG Sodium ABG Potassium ABG Chloride ABG Glucose Carboxyhemoglobin Sodium Potassium Chloride Carbon Dioxide BUN Creatinine Glucose POC Glucose 114 H Lactic Acid Calcium Phosphorus Magnesium Ferritin Direct Bilirubin AST ALT Alkaline Phosphatase Lactate Dehydrogenase Total Creatine Kinase C-Reactive Protein Total Protein Albumin Triglycerides Arterial Blood Glucose Arterial Blood Ionized Calcium Urine Creatinine Urine Chloride Vancomycin Trough Coronavirus (PCR) Crossmatch See Detail 07/04/20 07/04/20 07/04/20 12:33 17:41 23:04 WBC RBC Hgb Hct MCHC RDW Lymph % (Auto) [place] % (Auto) Lymph # (Auto) [place] # (Auto) Eos # (Auto) Seg Neutrophils % Seg Neuts % (Manual) Lymphocytes % (Manual) Monocytes % (Manual) Nucleated RBC % Seg Neutrophils # Seg Neutrophils # Man Lymphocytes # (Manual) Monocytes # (Manual) Eosinophils # (Manual) PT INR APTT D-Dimer Heparin Anti-Xa Level ABG pH POC ABG pCO2 POC ABG pO2 ABG pO2 ABG HCO3 ABG Hemoglobin ABG Oxyhemoglobin ABG Sodium ABG Potassium ABG Chloride ABG Glucose Carboxyhemoglobin Sodium Potassium Chloride Carbon Dioxide BUN Creatinine Glucose POC Glucose 119 H 109 H 116 H Lactic Acid Calcium Phosphorus Magnesium Ferritin Direct Bilirubin AST ALT Alkaline Phosphatase Lactate Dehydrogenase Total Creatine Kinase C-Reactive Protein Total Protein Albumin Triglycerides Arterial Blood Glucose Arterial Blood Ionized Calcium Urine Creatinine Urine Chloride Vancomycin Trough Coronavirus (PCR) Crossmatch 07/05/20 07/05/20 07/05/20 04:30 08:21 08:21 WBC RBC 2.77 L Hgb 7.9 L Hct 23.9 L MCHC RDW 16.7 H Lymph % (Auto) 7.5 L [place] % (Auto) Lymph # (Auto) 0.7 L [place] # (Auto) Eos # (Auto) Seg Neutrophils % 85.8 H Seg Neuts % (Manual) Lymphocytes % (Manual) Monocytes % (Manual) Nucleated RBC % Seg Neutrophils # 7.8 H Seg Neutrophils # Man Lymphocytes # (Manual) Monocytes # (Manual) Eosinophils # (Manual) PT INR APTT D-Dimer Heparin Anti-Xa Level ABG pH 7.295 L POC ABG pCO2 POC ABG pO2 ABG pO2 151.9 H ABG HCO3 26.8 H ABG Hemoglobin 7.3 L ABG Oxyhemoglobin ABG Sodium ABG Potassium ABG Chloride ABG Glucose Carboxyhemoglobin Sodium Potassium Chloride Carbon Dioxide BUN Creatinine Glucose POC Glucose Lactic Acid Calcium Phosphorus Magnesium Ferritin Direct Bilirubin AST ALT Alkaline Phosphatase Lactate Dehydrogenase Total Creatine Kinase C-Reactive Protein Total Protein Albumin Triglycerides 258 H Arterial Blood Glucose Arterial Blood Ionized Calcium Urine Creatinine Urine Chloride Vancomycin Trough Coronavirus (PCR) Crossmatch 07/05/20 07/05/20 07/06/20 08:21 12:12 04:29 WBC RBC Hgb Hct MCHC RDW Lymph % (Auto) [place] % (Auto) Lymph # (Auto) [place] # (Auto) Eos # (Auto) Seg Neutrophils % Seg Neuts % (Manual) Lymphocytes % (Manual) Monocytes % (Manual) Nucleated RBC % Seg Neutrophils # Seg Neutrophils # Man Lymphocytes # (Manual) Monocytes # (Manual) Eosinophils # (Manual) PT INR APTT D-Dimer Heparin Anti-Xa Level ABG pH 7.291 L POC ABG pCO2 51.3 H POC ABG pO2 ABG pO2 ABG HCO3 ABG Hemoglobin 8.5 L ABG Oxyhemoglobin ABG Sodium 129.6 L ABG Potassium 4.8 H ABG Chloride 96.0 L ABG Glucose Carboxyhemoglobin Sodium 133 L Potassium 5.6 H Chloride 94.4 L Carbon Dioxide BUN 80 H Creatinine 4.2 H Glucose 114 H POC Glucose 106 H Lactic Acid Calcium 7.6 L Phosphorus Magnesium Ferritin Direct Bilirubin 0.5 H AST 75 H ALT 86 H Alkaline Phosphatase Lactate Dehydrogenase Total Creatine Kinase C-Reactive Protein Total Protein 5.6 L D Albumin 1.9 L Triglycerides Arterial Blood Glucose Arterial Blood Ionized Calcium 4.2 L Urine Creatinine Urine Chloride Vancomycin Trough Coronavirus (PCR) Crossmatch 07/06/20 07/06/20 07/06/20 11:35 11:35 12:16 WBC RBC 2.54 L Hgb 7.5 L Hct 21.5 L MCHC 35 H RDW 15.7 H Lymph % (Auto) [place] % (Auto) Lymph # (Auto) [place] # (Auto) Eos # (Auto) Seg Neutrophils % Seg Neuts % (Manual) Lymphocytes % (Manual) Monocytes % (Manual) Nucleated RBC % Seg Neutrophils # Seg Neutrophils # Man Lymphocytes # (Manual) Monocytes # (Manual) Eosinophils # (Manual) PT INR APTT D-Dimer Heparin Anti-Xa Level ABG pH POC ABG pCO2 POC ABG pO2 ABG pO2 ABG HCO3 ABG Hemoglobin ABG Oxyhemoglobin ABG Sodium ABG Potassium ABG Chloride ABG Glucose Carboxyhemoglobin Sodium 130 L Potassium Chloride 92.2 L Carbon Dioxide 19 L D BUN 107 H Creatinine 5.1 H Glucose 106 H POC Glucose 106 H Lactic Acid Calcium 7.5 L Phosphorus Magnesium Ferritin Direct Bilirubin AST ALT Alkaline Phosphatase Lactate Dehydrogenase Total Creatine Kinase C-Reactive Protein Total Protein Albumin Triglycerides Arterial Blood Glucose Arterial Blood Ionized Calcium Urine Creatinine Urine Chloride Vancomycin Trough Coronavirus (PCR) Crossmatch 07/06/20 07/06/20 07/06/20 17:01 21:56 23:41 WBC RBC Hgb Hct MCHC RDW Lymph % (Auto) [place] % (Auto) Lymph # (Auto) [place] # (Auto) Eos # (Auto) Seg Neutrophils % Seg Neuts % (Manual) Lymphocytes % (Manual) Monocytes % (Manual) Nucleated RBC % Seg Neutrophils # Seg Neutrophils # Man Lymphocytes # (Manual) Monocytes # (Manual) Eosinophils # (Manual) PT INR APTT D-Dimer Heparin Anti-Xa Level ABG pH POC ABG pCO2 POC ABG pO2 ABG pO2 ABG HCO3 ABG Hemoglobin ABG Oxyhemoglobin ABG Sodium ABG Potassium ABG Chloride ABG Glucose Carboxyhemoglobin Sodium 135 L Potassium 5.1 H Chloride Carbon Dioxide BUN 73 H Creatinine 4.0 H Glucose 112 H POC Glucose 109 H 111 H Lactic Acid Calcium 7.8 L Phosphorus Magnesium Ferritin Direct Bilirubin AST ALT Alkaline Phosphatase Lactate Dehydrogenase Total Creatine Kinase C-Reactive Protein Total Protein Albumin Triglycerides Arterial Blood Glucose Arterial Blood Ionized Calcium Urine Creatinine Urine Chloride Vancomycin Trough Coronavirus (PCR) Crossmatch 07/07/20 07/07/20 07/07/20 04:18 05:04 05:29 WBC RBC 2.46 L Hgb 7.6 L Hct 21.5 L MCHC 35 H RDW 16.5 H Lymph % (Auto) [place] % (Auto) Lymph # (Auto) [place] # (Auto) Eos # (Auto) Seg Neutrophils % Seg Neuts % (Manual) 82.0 H Lymphocytes % (Manual) Monocytes % (Manual) Nucleated RBC % 1.0 H Seg Neutrophils # Seg Neutrophils # Man Lymphocytes # (Manual) 1.1 L Monocytes # (Manual) Eosinophils # (Manual) PT INR APTT D-Dimer Heparin Anti-Xa Level ABG pH POC ABG pCO2 POC ABG pO2 79.6 L ABG pO2 ABG HCO3 ABG Hemoglobin 8.2 L ABG Oxyhemoglobin ABG Sodium 133.3 L ABG Potassium 4.7 H ABG Chloride ABG Glucose 135 H Carboxyhemoglobin Sodium Potassium Chloride Carbon Dioxide BUN Creatinine Glucose POC Glucose 112 H Lactic Acid Calcium Phosphorus Magnesium Ferritin Direct Bilirubin AST ALT Alkaline Phosphatase Lactate Dehydrogenase Total Creatine Kinase C-Reactive Protein Total Protein Albumin Triglycerides Arterial Blood Glucose 135 H Arterial Blood Ionized Calcium 4.5 L Urine Creatinine Urine Chloride Vancomycin Trough Coronavirus (PCR) Crossmatch 07/07/20 07/07/20 07/07/20 10:17 12:18 17:43 WBC RBC Hgb Hct MCHC RDW Lymph % (Auto) [place] % (Auto) Lymph # (Auto) [place] # (Auto) Eos # (Auto) Seg Neutrophils % Seg Neuts % (Manual) Lymphocytes % (Manual) Monocytes % (Manual) Nucleated RBC % Seg Neutrophils # Seg Neutrophils # Man Lymphocytes # (Manual) Monocytes # (Manual) Eosinophils # (Manual) PT INR APTT D-Dimer Heparin Anti-Xa Level ABG pH POC ABG pCO2 POC ABG pO2 ABG pO2 ABG HCO3 ABG Hemoglobin ABG Oxyhemoglobin ABG Sodium ABG Potassium ABG Chloride ABG Glucose Carboxyhemoglobin Sodium 136 L Potassium Chloride 96.8 L Carbon Dioxide BUN 82 H Creatinine 4.3 H Glucose 129 H POC Glucose 108 H 116 H Lactic Acid Calcium 7.8 L Phosphorus Magnesium Ferritin Direct Bilirubin AST ALT Alkaline Phosphatase Lactate Dehydrogenase Total Creatine Kinase C-Reactive Protein Total Protein Albumin Triglycerides Arterial Blood Glucose Arterial Blood Ionized Calcium Urine Creatinine Urine Chloride Vancomycin Trough Coronavirus (PCR) Crossmatch 07/07/20 07/08/20 07/08/20 23:31 04:00 04:00 WBC RBC 2.52 L Hgb 7.3 L Hct 22.2 L MCHC RDW 16.6 H Lymph % (Auto) 11.5 L [place] % (Auto) Lymph # (Auto) [place] # (Auto) Eos # (Auto) Seg Neutrophils % 78.2 H Seg Neuts % (Manual) Lymphocytes % (Manual) Monocytes % (Manual) Nucleated RBC % Seg Neutrophils # 8.0 H Seg Neutrophils # Man Lymphocytes # (Manual) Monocytes # (Manual) Eosinophils # (Manual) PT INR APTT D-Dimer Heparin Anti-Xa Level ABG pH POC ABG pCO2 POC ABG pO2 ABG pO2 ABG HCO3 ABG Hemoglobin ABG Oxyhemoglobin ABG Sodium ABG Potassium ABG Chloride ABG Glucose Carboxyhemoglobin Sodium 132 L Potassium 5.4 H Chloride 92.5 L Carbon Dioxide BUN 98 H Creatinine 4.9 H Glucose 105 H POC Glucose 117 H Lactic Acid Calcium 7.9 L Phosphorus Magnesium Ferritin Direct Bilirubin AST ALT Alkaline Phosphatase Lactate Dehydrogenase Total Creatine Kinase C-Reactive Protein Total Protein Albumin Triglycerides Arterial Blood Glucose Arterial Blood Ionized Calcium Urine Creatinine Urine Chloride Vancomycin Trough Coronavirus (PCR) Crossmatch 07/08/20 07/08/20 07/08/20 04:09 11:34 17:05 WBC RBC Hgb Hct MCHC RDW Lymph % (Auto) [place] % (Auto) Lymph # (Auto) [place] # (Auto) Eos # (Auto) Seg Neutrophils % Seg Neuts % (Manual) Lymphocytes % (Manual) Monocytes % (Manual) Nucleated RBC % Seg Neutrophils # Seg Neutrophils # Man Lymphocytes # (Manual) Monocytes # (Manual) Eosinophils # (Manual) PT INR APTT D-Dimer Heparin Anti-Xa Level ABG pH 7.220 L POC ABG pCO2 60.5 H POC ABG pO2 ABG pO2 ABG HCO3 ABG Hemoglobin 8.2 L ABG Oxyhemoglobin ABG Sodium 131.3 L ABG Potassium 5.2 H ABG Chloride ABG Glucose 103 H Carboxyhemoglobin Sodium Potassium Chloride Carbon Dioxide BUN Creatinine Glucose POC Glucose 140 H 125 H Lactic Acid Calcium Phosphorus Magnesium Ferritin Direct Bilirubin AST ALT Alkaline Phosphatase Lactate Dehydrogenase Total Creatine Kinase C-Reactive Protein Total Protein Albumin Triglycerides Arterial Blood Glucose 103 H Arterial Blood Ionized Calcium 4.3 L Urine Creatinine Urine Chloride Vancomycin Trough Coronavirus (PCR) Crossmatch 07/08/20 07/08/20 07/09/20 20:21 23:43 05:10 WBC RBC Hgb Hct MCHC RDW Lymph % (Auto) [place] % (Auto) Lymph # (Auto) [place] # (Auto) Eos # (Auto) Seg Neutrophils % Seg Neuts % (Manual) Lymphocytes % (Manual) Monocytes % (Manual) Nucleated RBC % Seg Neutrophils # Seg Neutrophils # Man Lymphocytes # (Manual) Monocytes # (Manual) Eosinophils # (Manual) PT INR APTT D-Dimer Heparin Anti-Xa Level ABG pH 7.20 L POC ABG pCO2 69.8 H POC ABG pO2 138.9 H 76.1 L ABG pO2 ABG HCO3 ABG Hemoglobin 11.9 L 8.4 L ABG Oxyhemoglobin ABG Sodium 133.1 L 131.2 L ABG Potassium 5.0 H 4.7 H ABG Chloride ABG Glucose 120 H 102 H Carboxyhemoglobin Sodium Potassium Chloride Carbon Dioxide BUN Creatinine Glucose POC Glucose 118 H Lactic Acid Calcium Phosphorus Magnesium Ferritin Direct Bilirubin AST ALT Alkaline Phosphatase Lactate Dehydrogenase Total Creatine Kinase C-Reactive Protein Total Protein Albumin Triglycerides Arterial Blood Glucose 120 H 102 H Arterial Blood Ionized Calcium 4.4 L 4.3 L Urine Creatinine Urine Chloride Vancomycin Trough Coronavirus (PCR) Crossmatch 07/09/20 07/09/20 07/09/20 11:51 17:04 21:00 WBC RBC Hgb Hct MCHC RDW Lymph % (Auto) [place] % (Auto) Lymph # (Auto) [place] # (Auto) Eos # (Auto) Seg Neutrophils % Seg Neuts % (Manual) Lymphocytes % (Manual) Monocytes % (Manual) Nucleated RBC % Seg Neutrophils # Seg Neutrophils # Man Lymphocytes # (Manual) Monocytes # (Manual) Eosinophils # (Manual) PT INR APTT D-Dimer Heparin Anti-Xa Level ABG pH POC ABG pCO2 POC ABG pO2 114.2 H ABG pO2 ABG HCO3 ABG Hemoglobin 7.8 L ABG Oxyhemoglobin ABG Sodium 132.3 L ABG Potassium 4.6 H ABG Chloride ABG Glucose Carboxyhemoglobin Sodium Potassium Chloride Carbon Dioxide BUN Creatinine Glucose POC Glucose 113 H 111 H Lactic Acid Calcium Phosphorus Magnesium Ferritin Direct Bilirubin AST ALT Alkaline Phosphatase Lactate Dehydrogenase Total Creatine Kinase C-Reactive Protein Total Protein Albumin Triglycerides Arterial Blood Glucose Arterial Blood Ionized Calcium 4.4 L Urine Creatinine Urine Chloride Vancomycin Trough Coronavirus (PCR) Crossmatch 07/10/20 07/10/20 07/10/20 03:49 03:55 03:55 WBC 18.1 H RBC 2.37 L Hgb 6.8 L Hct 20.7 L MCHC RDW 16.9 H Lymph % (Auto) [place] % (Auto) Lymph # (Auto) [place] # (Auto) Eos # (Auto) Seg Neutrophils % Seg Neuts % (Manual) 79.0 H Lymphocytes % (Manual) 10.0 L Monocytes % (Manual) Nucleated RBC % 1.0 H Seg Neutrophils # Seg Neutrophils # Man 14.3 H Lymphocytes # (Manual) Monocytes # (Manual) Eosinophils # (Manual) 0.7 H PT INR APTT D-Dimer Heparin Anti-Xa Level ABG pH POC ABG pCO2 POC ABG pO2 ABG pO2 ABG HCO3 ABG Hemoglobin 7.7 L ABG Oxyhemoglobin ABG Sodium 130.3 L ABG Potassium 4.6 H ABG Chloride ABG Glucose Carboxyhemoglobin Sodium 136 L Potassium Chloride 96.0 L Carbon Dioxide BUN 76 H Creatinine 3.6 H Glucose POC Glucose Lactic Acid Calcium 7.4 L Phosphorus Magnesium Ferritin Direct Bilirubin AST ALT Alkaline Phosphatase Lactate Dehydrogenase Total Creatine Kinase C-Reactive Protein Total Protein Albumin Triglycerides Arterial Blood Glucose Arterial Blood Ionized Calcium 4.2 L Urine Creatinine Urine Chloride Vancomycin Trough Coronavirus (PCR) Crossmatch 07/10/20 07/11/20 07/11/20 13:24 04:08 06:52 WBC 26.0 H RBC 2.91 L Hgb 8.2 L Hct 24.8 L MCHC RDW 17.2 H Lymph % (Auto) [place] % (Auto) Lymph # (Auto) [place] # (Auto) Eos # (Auto) Seg Neutrophils % Seg Neuts % (Manual) Lymphocytes % (Manual) 1.0 L Monocytes % (Manual) 11.0 H Nucleated RBC % Seg Neutrophils # Seg Neutrophils # Man 16.9 H Lymphocytes # (Manual) 0.3 L Monocytes # (Manual) 2.9 H Eosinophils # (Manual) 1.0 H PT INR APTT D-Dimer Heparin Anti-Xa Level ABG pH POC ABG pCO2 POC ABG pO2 ABG pO2 ABG HCO3 ABG Hemoglobin 8.5 L ABG Oxyhemoglobin ABG Sodium 130.6 L ABG Potassium 4.9 H ABG Chloride ABG Glucose 105 H Carboxyhemoglobin Sodium Potassium Chloride Carbon Dioxide BUN Creatinine Glucose POC Glucose Lactic Acid Calcium Phosphorus Magnesium Ferritin Direct Bilirubin AST ALT Alkaline Phosphatase Lactate Dehydrogenase Total Creatine Kinase C-Reactive Protein Total Protein Albumin Triglycerides Arterial Blood Glucose 105 H Arterial Blood Ionized Calcium 4.1 L Urine Creatinine Urine Chloride Vancomycin Trough Coronavirus (PCR) Crossmatch See Detail 07/11/20 07/11/20 07/11/20 06:52 08:48 11:39 WBC RBC Hgb Hct MCHC RDW Lymph % (Auto) [place] % (Auto) Lymph # (Auto) [place] # (Auto) Eos # (Auto) Seg Neutrophils % Seg Neuts % (Manual) Lymphocytes % (Manual) Monocytes % (Manual) Nucleated RBC % Seg Neutrophils # Seg Neutrophils # Man Lymphocytes # (Manual) Monocytes # (Manual) Eosinophils # (Manual) PT INR APTT D-Dimer Heparin Anti-Xa Level ABG pH POC ABG pCO2 POC ABG pO2 ABG pO2 ABG HCO3 ABG Hemoglobin ABG Oxyhemoglobin ABG Sodium ABG Potassium ABG Chloride ABG Glucose Carboxyhemoglobin Sodium 133 L 134 L Potassium 5.3 H Chloride 93.5 L 94.8 L Carbon Dioxide BUN 101 H 99 H Creatinine 4.5 H 4.6 H Glucose 102 H POC Glucose 116 H Lactic Acid Calcium 7.8 L 7.6 L Phosphorus Magnesium Ferritin Direct Bilirubin AST ALT Alkaline Phosphatase Lactate Dehydrogenase Total Creatine Kinase C-Reactive Protein Total Protein Albumin Triglycerides Arterial Blood Glucose Arterial Blood Ionized Calcium Urine Creatinine Urine Chloride Vancomycin Trough Coronavirus (PCR) Crossmatch 07/11/20 07/12/20 07/12/20 17:23 00:04 03:20 WBC RBC Hgb Hct MCHC RDW Lymph % (Auto) [place] % (Auto) Lymph # (Auto) [place] # (Auto) Eos # (Auto) Seg Neutrophils % Seg Neuts % (Manual) Lymphocytes % (Manual) Monocytes % (Manual) Nucleated RBC % Seg Neutrophils # Seg Neutrophils # Man Lymphocytes # (Manual) Monocytes # (Manual) Eosinophils # (Manual) PT INR APTT D-Dimer Heparin Anti-Xa Level ABG pH POC ABG pCO2 49.1 H POC ABG pO2 130.3 H ABG pO2 ABG HCO3 ABG Hemoglobin 8.7 L ABG Oxyhemoglobin ABG Sodium 135.2 L ABG Potassium 4.7 H ABG Chloride ABG Glucose 128 H Carboxyhemoglobin Sodium Potassium Chloride Carbon Dioxide BUN Creatinine Glucose POC Glucose 142 H 113 H Lactic Acid Calcium Phosphorus Magnesium Ferritin Direct Bilirubin AST ALT Alkaline Phosphatase Lactate Dehydrogenase Total Creatine Kinase C-Reactive Protein Total Protein Albumin Triglycerides Arterial Blood Glucose 128 H Arterial Blood Ionized Calcium 4.4 L Urine Creatinine Urine Chloride Vancomycin Trough Coronavirus (PCR) Crossmatch 07/12/20 07/12/20 07/12/20 03:40 03:40 04:00 WBC 24.3 H RBC 2.83 L Hgb 8.0 L Hct 24.9 L MCHC RDW 17.7 H Lymph % (Auto) 5.6 L [place] % (Auto) 7.4 H Lymph # (Auto) [place] # (Auto) 1.8 H Eos # (Auto) 0.7 H Seg Neutrophils % 83.9 H Seg Neuts % (Manual) Lymphocytes % (Manual) Monocytes % (Manual) Nucleated RBC % Seg Neutrophils # 20.4 H Seg Neutrophils # Man Lymphocytes # (Manual) Monocytes # (Manual) Eosinophils # (Manual) PT INR APTT D-Dimer Heparin Anti-Xa Level ABG pH POC ABG pCO2 POC ABG pO2 ABG pO2 ABG HCO3 ABG Hemoglobin ABG Oxyhemoglobin ABG Sodium ABG Potassium ABG Chloride ABG Glucose Carboxyhemoglobin Sodium 134 L Potassium Chloride 95.5 L Carbon Dioxide BUN 79 H Creatinine 3.7 H Glucose 127 H POC Glucose Lactic Acid Calcium 7.8 L Phosphorus Magnesium Ferritin Direct Bilirubin AST ALT Alkaline Phosphatase Lactate Dehydrogenase Total Creatine Kinase C-Reactive Protein Total Protein Albumin Triglycerides 246 H Arterial Blood Glucose Arterial Blood Ionized Calcium Urine Creatinine Urine Chloride Vancomycin Trough Coronavirus (PCR) Crossmatch 07/12/20 07/12/20 07/12/20 05:48 11:50 17:29 WBC RBC Hgb Hct MCHC RDW Lymph % (Auto) [place] % (Auto) Lymph # (Auto) [place] # (Auto) Eos # (Auto) Seg Neutrophils % Seg Neuts % (Manual) Lymphocytes % (Manual) Monocytes % (Manual) Nucleated RBC % Seg Neutrophils # Seg Neutrophils # Man Lymphocytes # (Manual) Monocytes # (Manual) Eosinophils # (Manual) PT INR APTT D-Dimer Heparin Anti-Xa Level ABG pH POC ABG pCO2 POC ABG pO2 ABG pO2 ABG HCO3 ABG Hemoglobin ABG Oxyhemoglobin ABG Sodium ABG Potassium ABG Chloride ABG Glucose Carboxyhemoglobin Sodium Potassium Chloride Carbon Dioxide BUN Creatinine Glucose POC Glucose 136 H 113 H 110 H Lactic Acid Calcium Phosphorus Magnesium Ferritin Direct Bilirubin AST ALT Alkaline Phosphatase Lactate Dehydrogenase Total Creatine Kinase C-Reactive Protein Total Protein Albumin Triglycerides Arterial Blood Glucose Arterial Blood Ionized Calcium Urine Creatinine Urine Chloride Vancomycin Trough Coronavirus (PCR) Crossmatch 07/12/20 07/13/20 07/13/20 23:43 03:11 06:59 WBC RBC Hgb Hct MCHC RDW Lymph % (Auto) [place] % (Auto) Lymph # (Auto) [place] # (Auto) Eos # (Auto) Seg Neutrophils % Seg Neuts % (Manual) Lymphocytes % (Manual) Monocytes % (Manual) Nucleated RBC % Seg Neutrophils # Seg Neutrophils # Man Lymphocytes # (Manual) Monocytes # (Manual) Eosinophils # (Manual) PT INR APTT D-Dimer Heparin Anti-Xa Level ABG pH POC ABG pCO2 49.0 H POC ABG pO2 69.6 L ABG pO2 ABG HCO3 ABG Hemoglobin 8.5 L ABG Oxyhemoglobin 90.5 L ABG Sodium 133.6 L ABG Potassium 5.1 H ABG Chloride ABG Glucose 104 H Carboxyhemoglobin Sodium 133 L Potassium 5.7 H Chloride 96.3 L Carbon Dioxide 20 L D BUN 102 H Creatinine 4.4 H Glucose 101 H POC Glucose 120 H Lactic Acid Calcium 7.9 L Phosphorus Magnesium Ferritin Direct Bilirubin AST 61 H ALT 85 H Alkaline Phosphatase 144 H Lactate Dehydrogenase Total Creatine Kinase C-Reactive Protein Total Protein 5.4 L Albumin 2.0 L Triglycerides Arterial Blood Glucose 104 H Arterial Blood Ionized Calcium 4.3 L Urine Creatinine Urine Chloride Vancomycin Trough Coronavirus (PCR) Crossmatch 07/13/20 07/13/20 07/13/20 08:48 12:14 15:12 WBC 27.5 H RBC 3.03 L Hgb 8.7 L Hct 27.0 L MCHC RDW 18.0 H Lymph % (Auto) [place] % (Auto) Lymph # (Auto) [place] # (Auto) Eos # (Auto) Seg Neutrophils % Seg Neuts % (Manual) Lymphocytes % (Manual) Monocytes % (Manual) Nucleated RBC % Seg Neutrophils # Seg Neutrophils # Man Lymphocytes # (Manual) Monocytes # (Manual) Eosinophils # (Manual) PT INR APTT D-Dimer Heparin Anti-Xa Level ABG pH POC ABG pCO2 POC ABG pO2 ABG pO2 ABG HCO3 ABG Hemoglobin ABG Oxyhemoglobin ABG Sodium ABG Potassium ABG Chloride ABG Glucose Carboxyhemoglobin Sodium Potassium 5.5 H Chloride Carbon Dioxide BUN 88 H Creatinine 3.8 H Glucose 133 H POC Glucose 134 H Lactic Acid Calcium 7.5 L Phosphorus Magnesium Ferritin Direct Bilirubin AST ALT Alkaline Phosphatase Lactate Dehydrogenase Total Creatine Kinase C-Reactive Protein Total Protein Albumin Triglycerides Arterial Blood Glucose Arterial Blood Ionized Calcium Urine Creatinine Urine Chloride Vancomycin Trough Coronavirus (PCR) Crossmatch 07/13/20 07/13/20 07/13/20 16:46 16:47 18:46 WBC RBC Hgb 7.4 L Hct 22.1 L MCHC RDW Lymph % (Auto) [place] % (Auto) Lymph # (Auto) [place] # (Auto) Eos # (Auto) Seg Neutrophils % Seg Neuts % (Manual) Lymphocytes % (Manual) Monocytes % (Manual) Nucleated RBC % Seg Neutrophils # Seg Neutrophils # Man Lymphocytes # (Manual) Monocytes # (Manual) Eosinophils # (Manual) PT INR APTT D-Dimer Heparin Anti-Xa Level ABG pH POC ABG pCO2 POC ABG pO2 ABG pO2 ABG HCO3 ABG Hemoglobin ABG Oxyhemoglobin ABG Sodium ABG Potassium ABG Chloride ABG Glucose Carboxyhemoglobin Sodium Potassium Chloride Carbon Dioxide BUN Creatinine Glucose POC Glucose 118 H Lactic Acid Calcium Phosphorus Magnesium Ferritin Direct Bilirubin AST ALT Alkaline Phosphatase Lactate Dehydrogenase Total Creatine Kinase C-Reactive Protein Total Protein Albumin Triglycerides Arterial Blood Glucose Arterial Blood Ionized Calcium Urine Creatinine Urine Chloride Vancomycin Trough Coronavirus (PCR) Crossmatch See Detail 07/13/20 07/14/20 07/14/20 23:34 04:25 12:21 WBC RBC Hgb Hct MCHC RDW Lymph % (Auto) [place] % (Auto) Lymph # (Auto) [place] # (Auto) Eos # (Auto) Seg Neutrophils % Seg Neuts % (Manual) Lymphocytes % (Manual) Monocytes % (Manual) Nucleated RBC % Seg Neutrophils # Seg Neutrophils # Man Lymphocytes # (Manual) Monocytes # (Manual) Eosinophils # (Manual) PT INR APTT D-Dimer Heparin Anti-Xa Level ABG pH POC ABG pCO2 POC ABG pO2 ABG pO2 ABG HCO3 ABG Hemoglobin 8.9 L ABG Oxyhemoglobin ABG Sodium 133.1 L ABG Potassium 4.7 H ABG Chloride ABG Glucose 113 H Carboxyhemoglobin Sodium Potassium Chloride Carbon Dioxide BUN Creatinine Glucose POC Glucose 109 H 109 H Lactic Acid Calcium Phosphorus Magnesium Ferritin Direct Bilirubin AST ALT Alkaline Phosphatase Lactate Dehydrogenase Total Creatine Kinase C-Reactive Protein Total Protein Albumin Triglycerides Arterial Blood Glucose 113 H Arterial Blood Ionized Calcium 4.4 L Urine Creatinine Urine Chloride Vancomycin Trough Coronavirus (PCR) Crossmatch 07/14/20 07/14/20 07/14/20 16:44 16:44 20:20 WBC 30.1 H RBC 2.60 L Hgb 7.4 L 5.6 L* Hct 23.0 L 18.1 L* MCHC RDW 18.0 H Lymph % (Auto) [place] % (Auto) Lymph # (Auto) [place] # (Auto) Eos # (Auto) Seg Neutrophils % Seg Neuts % (Manual) 78.0 H Lymphocytes % (Manual) 5.0 L Monocytes % (Manual) Nucleated RBC % Seg Neutrophils # Seg Neutrophils # Man 23.5 H Lymphocytes # (Manual) Monocytes # (Manual) 0.9 H Eosinophils # (Manual) PT 15.6 H INR 1.26 H APTT D-Dimer Heparin Anti-Xa Level ABG pH POC ABG pCO2 POC ABG pO2 ABG pO2 ABG HCO3 ABG Hemoglobin ABG Oxyhemoglobin ABG Sodium ABG Potassium ABG Chloride ABG Glucose Carboxyhemoglobin Sodium Potassium Chloride Carbon Dioxide BUN Creatinine Glucose POC Glucose Lactic Acid Calcium Phosphorus Magnesium Ferritin Direct Bilirubin AST ALT Alkaline Phosphatase Lactate Dehydrogenase Total Creatine Kinase C-Reactive Protein Total Protein Albumin Triglycerides Arterial Blood Glucose Arterial Blood Ionized Calcium Urine Creatinine Urine Chloride Vancomycin Trough Coronavirus (PCR) Crossmatch 07/14/20 07/14/20 07/15/20 21:19 23:45 04:13 WBC RBC Hgb Hct MCHC RDW Lymph % (Auto) [place] % (Auto) Lymph # (Auto) [place] # (Auto) Eos # (Auto) Seg Neutrophils % Seg Neuts % (Manual) Lymphocytes % (Manual) Monocytes % (Manual) Nucleated RBC % Seg Neutrophils # Seg Neutrophils # Man Lymphocytes # (Manual) Monocytes # (Manual) Eosinophils # (Manual) PT INR APTT D-Dimer Heparin Anti-Xa Level ABG pH POC ABG pCO2 POC ABG pO2 ABG pO2 ABG HCO3 ABG Hemoglobin 5.8 L 6.0 L ABG Oxyhemoglobin 93.8 L ABG Sodium 132.2 L 130.3 L ABG Potassium 5.5 H 5.8 H ABG Chloride ABG Glucose 118 H 122 H Carboxyhemoglobin Sodium Potassium Chloride Carbon Dioxide BUN Creatinine Glucose POC Glucose 126 H Lactic Acid Calcium Phosphorus Magnesium Ferritin Direct Bilirubin AST ALT Alkaline Phosphatase Lactate Dehydrogenase Total Creatine Kinase C-Reactive Protein Total Protein Albumin Triglycerides Arterial Blood Glucose 118 H 122 H Arterial Blood Ionized Calcium 4.3 L 4.2 L Urine Creatinine Urine Chloride Vancomycin Trough Coronavirus (PCR) Crossmatch 07/15/20 07/15/20 07/15/20 08:21 08:21 08:38 WBC 45.5 H* RBC 2.42 L Hgb 7.1 L Hct 21.5 L MCHC RDW 16.5 H Lymph % (Auto) [place] % (Auto) Lymph # (Auto) [place] # (Auto) Eos # (Auto) Seg Neutrophils % Seg Neuts % (Manual) 89.0 H Lymphocytes % (Manual) 7.0 L Monocytes % (Manual) Nucleated RBC % Seg Neutrophils # Seg Neutrophils # Man 40.5 H Lymphocytes # (Manual) Monocytes # (Manual) 1.8 H Eosinophils # (Manual) PT 17.6 H INR 1.46 H APTT D-Dimer Heparin Anti-Xa Level ABG pH POC ABG pCO2 POC ABG pO2 ABG pO2 ABG HCO3 ABG Hemoglobin ABG Oxyhemoglobin ABG Sodium ABG Potassium ABG Chloride ABG Glucose Carboxyhemoglobin Sodium 131 L Potassium 6.0 H Chloride 94.6 L Carbon Dioxide 20 L BUN 116 H Creatinine 4.6 H Glucose 123 H POC Glucose Lactic Acid Calcium 7.6 L Phosphorus Magnesium Ferritin Direct Bilirubin AST ALT Alkaline Phosphatase Lactate Dehydrogenase Total Creatine Kinase C-Reactive Protein Total Protein Albumin Triglycerides Arterial Blood Glucose Arterial Blood Ionized Calcium Urine Creatinine Urine Chloride Vancomycin Trough Coronavirus (PCR) Crossmatch 07/15/20 07/15/20 07/15/20 11:29 17:23 18:52 WBC RBC Hgb Hct MCHC RDW Lymph % (Auto) [place] % (Auto) Lymph # (Auto) [place] # (Auto) Eos # (Auto) Seg Neutrophils % Seg Neuts % (Manual) Lymphocytes % (Manual) Monocytes % (Manual) Nucleated RBC % Seg Neutrophils # Seg Neutrophils # Man Lymphocytes # (Manual) Monocytes # (Manual) Eosinophils # (Manual) PT INR APTT D-Dimer Heparin Anti-Xa Level ABG pH POC ABG pCO2 POC ABG pO2 ABG pO2 ABG HCO3 ABG Hemoglobin ABG Oxyhemoglobin ABG Sodium ABG Potassium ABG Chloride ABG Glucose Carboxyhemoglobin Sodium Potassium Chloride 97.9 L Carbon Dioxide BUN 78 H Creatinine 3.1 H Glucose 114 H POC Glucose 181 H 120 H Lactic Acid Calcium 7.3 L Phosphorus Magnesium Ferritin Direct Bilirubin AST ALT Alkaline Phosphatase Lactate Dehydrogenase Total Creatine Kinase C-Reactive Protein Total Protein Albumin Triglycerides Arterial Blood Glucose Arterial Blood Ionized Calcium Urine Creatinine Urine Chloride Vancomycin Trough Coronavirus (PCR) Crossmatch 07/15/20 07/16/20 07/16/20 18:52 01:10 03:38 WBC RBC Hgb 9.9 L 8.5 L Hct 29.8 L D 24.7 L MCHC RDW Lymph % (Auto) [place] % (Auto) Lymph # (Auto) [place] # (Auto) Eos # (Auto) Seg Neutrophils % Seg Neuts % (Manual) Lymphocytes % (Manual) Monocytes % (Manual) Nucleated RBC % Seg Neutrophils # Seg Neutrophils # Man Lymphocytes # (Manual) Monocytes # (Manual) Eosinophils # (Manual) PT INR APTT D-Dimer Heparin Anti-Xa Level ABG pH 7.314 L POC ABG pCO2 48.5 H POC ABG pO2 58.9 L ABG pO2 ABG HCO3 ABG Hemoglobin 8.7 L ABG Oxyhemoglobin 86.7 L ABG Sodium 132.7 L ABG Potassium 5.2 H ABG Chloride ABG Glucose 99 H Carboxyhemoglobin Sodium Potassium Chloride Carbon Dioxide BUN Creatinine Glucose POC Glucose Lactic Acid Calcium Phosphorus Magnesium Ferritin Direct Bilirubin AST ALT Alkaline Phosphatase Lactate Dehydrogenase Total Creatine Kinase C-Reactive Protein Total Protein Albumin Triglycerides Arterial Blood Glucose 99 H Arterial Blood Ionized Calcium 3.9 L Urine Creatinine Urine Chloride Vancomycin Trough Coronavirus (PCR) Crossmatch 07/16/20 07/16/20 07/16/20 04:28 04:28 07:29 WBC 48.9 H* RBC 2.86 L Hgb 8.6 L 7.9 L Hct 25.4 L 24.4 L MCHC RDW 15.6 H Lymph % (Auto) [place] % (Auto) Lymph # (Auto) [place] # (Auto) Eos # (Auto) Seg Neutrophils % Seg Neuts % (Manual) Lymphocytes % (Manual) Monocytes % (Manual) Nucleated RBC % Seg Neutrophils # Seg Neutrophils # Man Lymphocytes # (Manual) Monocytes # (Manual) Eosinophils # (Manual) PT INR APTT D-Dimer Heparin Anti-Xa Level ABG pH POC ABG pCO2 POC ABG pO2 ABG pO2 ABG HCO3 ABG Hemoglobin ABG Oxyhemoglobin ABG Sodium ABG Potassium ABG Chloride ABG Glucose Carboxyhemoglobin Sodium 136 L Potassium 5.4 H Chloride 95.0 L Carbon Dioxide BUN 85 H Creatinine 3.4 H Glucose 66 L POC Glucose Lactic Acid Calcium 6.8 L Phosphorus Magnesium Ferritin Direct Bilirubin AST ALT Alkaline Phosphatase Lactate Dehydrogenase Total Creatine Kinase C-Reactive Protein Total Protein Albumin Triglycerides Arterial Blood Glucose Arterial Blood Ionized Calcium Urine Creatinine Urine Chloride Vancomycin Trough Coronavirus (PCR) Crossmatch 07/16/20 07/16/20 07/16/20 11:52 18:06 18:08 WBC RBC Hgb 7.4 L Hct 22.5 L MCHC RDW Lymph % (Auto) [place] % (Auto) Lymph # (Auto) [place] # (Auto) Eos # (Auto) Seg Neutrophils % Seg Neuts % (Manual) Lymphocytes % (Manual) Monocytes % (Manual) Nucleated RBC % Seg Neutrophils # Seg Neutrophils # Man Lymphocytes # (Manual) Monocytes # (Manual) Eosinophils # (Manual) PT INR APTT D-Dimer Heparin Anti-Xa Level ABG pH POC ABG pCO2 POC ABG pO2 ABG pO2 ABG HCO3 ABG Hemoglobin ABG Oxyhemoglobin ABG Sodium ABG Potassium ABG Chloride ABG Glucose Carboxyhemoglobin Sodium Potassium Chloride Carbon Dioxide BUN Creatinine Glucose POC Glucose 124 H 108 H Lactic Acid Calcium Phosphorus Magnesium Ferritin Direct Bilirubin AST ALT Alkaline Phosphatase Lactate Dehydrogenase Total Creatine Kinase C-Reactive Protein Total Protein Albumin Triglycerides Arterial Blood Glucose Arterial Blood Ionized Calcium Urine Creatinine Urine Chloride Vancomycin Trough Coronavirus (PCR) Crossmatch 07/17/20 07/17/20 07/17/20 03:27 15:25 15:25 WBC 46.2 H* RBC 2.05 L Hgb 6.1 L Hct 18.4 L* MCHC RDW 15.6 H Lymph % (Auto) [place] % (Auto) Lymph # (Auto) [place] # (Auto) Eos # (Auto) Seg Neutrophils % Seg Neuts % (Manual) 87.0 H Lymphocytes % (Manual) 3.0 L Monocytes % (Manual) Nucleated RBC % Seg Neutrophils # Seg Neutrophils # Man 40.2 H Lymphocytes # (Manual) Monocytes # (Manual) 3.2 H Eosinophils # (Manual) PT 18.2 H INR 1.52 H APTT D-Dimer Heparin Anti-Xa Level ABG pH 7.313 L POC ABG pCO2 50.9 H POC ABG pO2 ABG pO2 ABG HCO3 ABG Hemoglobin 7.5 L ABG Oxyhemoglobin ABG Sodium 131.8 L ABG Potassium 4.6 H ABG Chloride ABG Glucose 105 H Carboxyhemoglobin Sodium Potassium Chloride Carbon Dioxide BUN Creatinine Glucose POC Glucose Lactic Acid Calcium Phosphorus Magnesium Ferritin Direct Bilirubin AST ALT Alkaline Phosphatase Lactate Dehydrogenase Total Creatine Kinase C-Reactive Protein Total Protein Albumin Triglycerides Arterial Blood Glucose 105 H Arterial Blood Ionized Calcium 3.9 L Urine Creatinine Urine Chloride Vancomycin Trough Coronavirus (PCR) Crossmatch 07/17/20 07/18/20 07/18/20 Unknown 03:10 05:06 WBC 37.9 H RBC 2.91 L Hgb 8.5 L Hct 25.6 L D MCHC RDW Lymph % (Auto) [place] % (Auto) Lymph # (Auto) [place] # (Auto) Eos # (Auto) Seg Neutrophils % Seg Neuts % (Manual) Lymphocytes % (Manual) Monocytes % (Manual) Nucleated RBC % Seg Neutrophils # Seg Neutrophils # Man Lymphocytes # (Manual) Monocytes # (Manual) Eosinophils # (Manual) PT INR APTT D-Dimer Heparin Anti-Xa Level ABG pH POC ABG pCO2 POC ABG pO2 114.9 H ABG pO2 ABG HCO3 ABG Hemoglobin 8.6 L ABG Oxyhemoglobin ABG Sodium 130.6 L ABG Potassium 4.9 H ABG Chloride ABG Glucose Carboxyhemoglobin Sodium Potassium Chloride Carbon Dioxide BUN Creatinine Glucose POC Glucose Lactic Acid Calcium Phosphorus Magnesium Ferritin Direct Bilirubin AST ALT Alkaline Phosphatase Lactate Dehydrogenase Total Creatine Kinase C-Reactive Protein Total Protein Albumin Triglycerides Arterial Blood Glucose Arterial Blood Ionized Calcium 3.8 L Urine Creatinine Urine Chloride Vancomycin Trough Coronavirus (PCR) Crossmatch See Detail 07/18/20 07/19/20 07/19/20 05:06 00:06 03:57 WBC RBC Hgb Hct MCHC RDW Lymph % (Auto) [place] % (Auto) Lymph # (Auto) [place] # (Auto) Eos # (Auto) Seg Neutrophils % Seg Neuts % (Manual) Lymphocytes % (Manual) Monocytes % (Manual) Nucleated RBC % Seg Neutrophils # Seg Neutrophils # Man Lymphocytes # (Manual) Monocytes # (Manual) Eosinophils # (Manual) PT INR APTT D-Dimer Heparin Anti-Xa Level ABG pH POC ABG pCO2 POC ABG pO2 ABG pO2 ABG HCO3 ABG Hemoglobin 8.6 L ABG Oxyhemoglobin ABG Sodium 130.4 L ABG Potassium ABG Chloride ABG Glucose Carboxyhemoglobin Sodium Potassium 5.4 H Chloride Carbon Dioxide BUN 79 H Creatinine 3.2 H Glucose POC Glucose 69 L Lactic Acid Calcium 6.9 L Phosphorus Magnesium Ferritin Direct Bilirubin AST ALT 58 H Alkaline Phosphatase Lactate Dehydrogenase Total Creatine Kinase C-Reactive Protein Total Protein 4.3 L D Albumin 1.7 L Triglycerides 306 H Arterial Blood Glucose Arterial Blood Ionized Calcium 3.9 L Urine Creatinine Urine Chloride Vancomycin Trough Coronavirus (PCR) Crossmatch 07/19/20 07/19/20 07/19/20 05:22 09:15 09:15 WBC 32.5 H RBC 2.57 L Hgb 7.8 L Hct 22.8 L MCHC RDW 15.3 H Lymph % (Auto) [place] % (Auto) Lymph # (Auto) [place] # (Auto) Eos # (Auto) Seg Neutrophils % Seg Neuts % (Manual) Lymphocytes % (Manual) Monocytes % (Manual) Nucleated RBC % Seg Neutrophils # Seg Neutrophils # Man Lymphocytes # (Manual) Monocytes # (Manual) Eosinophils # (Manual) PT INR APTT D-Dimer Heparin Anti-Xa Level ABG pH POC ABG pCO2 POC ABG pO2 ABG pO2 ABG HCO3 ABG Hemoglobin ABG Oxyhemoglobin ABG Sodium ABG Potassium ABG Chloride ABG Glucose Carboxyhemoglobin Sodium 135 L Potassium Chloride 96.3 L Carbon Dioxide BUN 61 H Creatinine 2.8 H Glucose POC Glucose 64 L Lactic Acid Calcium 6.8 L Phosphorus Magnesium Ferritin Direct Bilirubin AST 54 H ALT 65 H Alkaline Phosphatase Lactate Dehydrogenase Total Creatine Kinase C-Reactive Protein Total Protein 4.3 L Albumin 1.8 L Triglycerides Arterial Blood Glucose Arterial Blood Ionized Calcium Urine Creatinine Urine Chloride Vancomycin Trough Coronavirus (PCR) Crossmatch 07/20/20 07/20/20 07/20/20 05:20 06:00 06:07 WBC 28.1 H RBC 2.53 L Hgb 7.7 L Hct 22.7 L MCHC RDW 15.5 H Lymph % (Auto) [place] % (Auto) Lymph # (Auto) [place] # (Auto) Eos # (Auto) Seg Neutrophils % Seg Neuts % (Manual) Lymphocytes % (Manual) Monocytes % (Manual) Nucleated RBC % Seg Neutrophils # Seg Neutrophils # Man Lymphocytes # (Manual) Monocytes # (Manual) Eosinophils # (Manual) PT INR APTT D-Dimer Heparin Anti-Xa Level ABG pH POC ABG pCO2 POC ABG pO2 ABG pO2 ABG HCO3 ABG Hemoglobin 6.3 L ABG Oxyhemoglobin ABG Sodium 130.0 L ABG Potassium ABG Chloride ABG Glucose 114 H Carboxyhemoglobin Sodium Potassium Chloride Carbon Dioxide BUN Creatinine Glucose POC Glucose 110 H Lactic Acid Calcium Phosphorus Magnesium Ferritin Direct Bilirubin AST ALT Alkaline Phosphatase Lactate Dehydrogenase Total Creatine Kinase C-Reactive Protein Total Protein Albumin Triglycerides Arterial Blood Glucose 114 H Arterial Blood Ionized Calcium 3.9 L Urine Creatinine Urine Chloride Vancomycin Trough Coronavirus (PCR) Crossmatch Chest x-ray: other (none today) Allied health notes reviewed: nursing
[2020-07-20] MEDS: SODIUM HYPOCHLORITE, DAKIN'S 1/2 STRENGTH (0.25%) 473 ML TOPICAL SOLN TP SCH ×2 (12:20→21:33)
[2020-07-20] MEDS: DOCUSATE SODIUM 100 MG/10 ML ORAL LIQD FEEDTUBE SCH ×2 (12:21→21:32)
--- NOTE | 2020-07-20 12:50 | Progress Note ---
Assessment and Plan Cultures: SARS CoV2 PCR: Positive as outpatient 06/17/2020 blood culture: No growth 06/17/2020 sputum culture: No growth 07/15/2020 blood culture: No growth 07/15/2020 fungal blood culture: Enterococcus faecalis 07/15/2020 tracheal aspirate culture: Usual respiratory otf 07/18/2020 blood culture: no growth A/P: 59-year-old male with obesity, obesity hypoventilation syndrome: #Severe sepsis with septic shock, ?also component of hemorrhagic shock #Enterococcus bacteremia: 07/15/2020 fungal blood culture: Growing Enterococcus. ?gut translocation. Interestingly other blood cultures from that day were negative. CT abdomen shows some colitis. If repeat blood cultures negative, will finish 14 days of abx. #Anemia, GI bleed: GI on board. #Critical COVID-19 pneumonia: s/p abx, steroids and remdesivir. #Acute hypoxic respiratory failure: on the vent. Also with pneumomediastinum, subcutaneous emphysema. #GIRISH: remains on HD per nephrology. Renally dose abx. #Sacral decubitus: s/p debridement by Dr. Kirk. Recs: -Continue IV Zosyn for now, once off pressors, will de-escalate to IV Ampicillin -unless repeat blood cultures turn positive, no need to remove/exchange lines -overall, very poor prognosis Tj Fajardo MD, FACP [facility] O: [phone] F: [phone] Subjective Date of service: 07/20/20 Principal diagnosis: ARF; Septic Shock; COVID-19 PNA; Atrial fibrillation; Obesity Interval history: Afebrile. Remains on the vent. Back on low dose pressors. Getting wound debridement. Objective - Exam Narrative Exam: Physical Exam (reviewed in chart to minimize risk of transmission) Constitutional: deferred Head, Ears, Nose: deferred Eyes: deferred Neck: deferred Oral: deferred Cardiovascular: deferred Respiratory: deferred GI: deferred Musculoskeletal: deferred Skin: deferred Hem/Lymphatic: deferred Psych: deferred Neurological: deferred - Constitutional Vitals: Vital Signs Temp Pulse Resp BP Pulse Ox 98.2 F 98 H 20 112/54 97 07/20/20 12:00 07/20/20 12:38 07/20/20 12:30 07/20/20 12:38 07/20/20 12:38 Temperature -Last 24 Hours Temperature 98.2 F Temperature 97.8 F Temperature 97.6 F Temperature 96.7 F Temperature 97.3 F Temperature 98.8 F Temperature 97.4 F Temperature 97.7 F - Labs CBC & Chem 7: 07/20/20 06:07 07/19/20 09:15 Labs: Abnormal lab results 07/17/20 07/20/20 07/20/20 Range/Units Unknown 05:20 06:00 WBC (4.5-11.0) K/mm3 RBC (3.65-5.03) M/mm3 Hgb (11.8-15.2) gm/dl Hct (35.5-45.6) % RDW (13.2-15.2) % ABG Hemoglobin 6.3 L (12.0-17.5) ABG Sodium 130.0 L (136.0-145.0) mmol/L ABG Glucose 114 H (65-95) mg/dL POC Glucose 110 H (70-105) mg/dL Arterial Blood Glucose 114 H (65-95) mg/dL Arterial Blood Ionized Calcium 3.9 L (4.6-5.3) mg/dL Crossmatch See Detail 07/20/20 Range/Units 06:07 WBC 28.1 H (4.5-11.0) K/mm3 RBC 2.53 L (3.65-5.03) M/mm3 Hgb 7.7 L (11.8-15.2) gm/dl Hct 22.7 L (35.5-45.6) % RDW 15.5 H (13.2-15.2) % ABG Hemoglobin (12.0-17.5) ABG Sodium (136.0-145.0) mmol/L ABG Glucose (65-95) mg/dL POC Glucose (70-105) mg/dL Arterial Blood Glucose (65-95) mg/dL Arterial Blood Ionized Calcium (4.6-5.3) mg/dL Crossmatch
--- NOTE | 2020-07-20 13:09 | Progress Note ---
Assessment and Plan Cont present cardiac management. Overall poor prognosis. The patient has been seen in conjunction with Dr. Adarsh Santos who agrees with the a ssessment and plan of care. - Patient Problems (1) Acute respiratory failure with hypoxia Current Visit: Yes Status: Acute (2) Pneumonia due to COVID-19 virus Current Visit: Yes Status: Acute (3) Sepsis Current Visit: Yes Status: Acute Qualifiers: Severe sepsis acute organ dysfunction type: acute respiratory failure Severe sepsis shock status: with septic shock (4) Paroxysmal atrial fibrillation with rapid ventricular response Current Visit: Yes Status: Acute (5) Acute renal failure Current Visit: Yes Status: Acute (6) Elevated LFTs Current Visit: Yes Status: Acute (7) Anemia Current Visit: Yes Status: Acute Subjective Date of service: 07/20/20 Principal diagnosis: ARF; Septic Shock; COVID-19 PNA; Atrial fibrillation; Obesity Interval history: pt remains intubated, sedated. intermittently requiring vasopressor support. tele reviewed - in AFib HR 100s. Objective Last Vital Signs Temp 98.2 F 07/20/20 12:00 Pulse 98 H 07/20/20 12:38 Resp 20 07/20/20 12:30 BP 112/54 07/20/20 12:38 Pulse Ox 97 07/20/20 12:38 - Physical Examination General: Other (intubated, sedated ) Neck: Positive: neck supple Cardiac: Positive: irregularly irregular, S1/S2 Lungs: Positive: Decreased Breath Sounds, Oxygen, Ventilated Respirations Neuro: Positive: Other (intubated, lethargic) Abdomen: Positive: Unremarkable Skin: Negative: Rash, Wound Extremities: Present: upper extr. pulses, lower extr. pulses, +1 Edema - Labs and Meds CBC 07/20/20 Range/Units 06:07 WBC 28.1 H (4.5-11.0) K/mm3 RBC 2.53 L (3.65-5.03) M/mm3 Hgb 7.7 L (11.8-15.2) gm/dl Hct 22.7 L (35.5-45.6) % Plt Count 185 (140-440) K/mm3 - Imaging and Cardiology EKG: report reviewed, image reviewed Echo: report reviewed (TDS, EF 55-60%. ) - Telemetry EKG Rhythm: Atrial Fibrillation - EKG Sinus rhythms and dysrhythmias: sinus tachycardia - Allied health notes Allied health notes reviewed: nursing
--- NOTE | 2020-07-20 14:26 | Consultation ---
History of Present Illness Consult date: 07/20/20 Chief complaint: Sacral pressure ulcer - History of present illness History of present illness: 60 yo male with respiratory failure. Intubated. Pt has a sacral pressure ulcer. Past History Past Medical History: hypertension, other (Morbid obesity; See HPI.) Past Surgical History: No surgical history, Other (Reviewed) Social history: Family history: diabetes, hypertension Medications and Allergies Allergies Allergy/AdvReac Type Severity Reaction Status Date / Time No Known Allergies Allergy Unverified 06/17/20 14:24 Home Medications Medication Instructions Recorded Confirmed Last Taken Type Losartan/Hydrochlorothiazide 1 each PO QDAY 06/19/20 06/19/20 Unknown History [Losartan-Hctz 100-25 mg Tab] amLODIPine [Norvasc] 5 mg PO DAILY 06/19/20 06/19/20 Unknown History Active Meds: Active Medications Acetaminophen (Acetaminophen 325 Mg Tab) 650 mg PO Q4H PRN PRN Reason: Pain MILD(1-3)/Fever >100.5/ROBERTS Last Admin: 07/03/20 09:16 Dose: 650 mg Documented by: Albuterol (Albuterol 2.5 Mg/3 Ml Nebu) 2.5 mg IH Q6HRT PRN PRN Reason: Shortness Of Breath Amiodarone HCl (Amiodarone 200 Mg Tab) 200 mg PO BID [facility] Last Admin: 07/20/20 09:16 Dose: 200 mg Documented by: Lipase/Protease/Amylase (Lipase 10,500/Protease 25,000/Amylase 43,750 (Units) Dr Kulkarni) 1 each FEEDTUBE PRN PRN PRN Reason: For Clogged Feeding Tube Ascorbic Acid (Ascorbic Acid 250 Mg Tab) 250 mg PO BID [facility] Last Admin: 07/20/20 09:16 Dose: 250 mg Documented by: Cholecalciferol (Cholecalciferol (Vit D3) 1000 Unit (25 Mcg) Tab) 1,000 unit PO DAILY [facility] Last Admin: 07/20/20 09:16 Dose: 1,000 unit Documented by: Docusate Sodium (Docusate Sodium 100 Mg/10 Ml Oral Liqd) 100 mg FEEDTUBE BID [facility] Last Admin: 07/20/20 12:21 Dose: Not Given Documented by: Fentanyl (Fentanyl 100 Mcg/2 Ml Inj) 50 mcg IV Q10MIN PRN PRN Reason: ANALGESIA Last Admin: 07/09/20 00:20 Dose: 50 mcg Documented by: Heparin Sodium (Porcine) (Heparin 10,000 Unit/1 Ml Vial) 5,000 unit IV PAM PRN PRN Reason: hemodialysis Last Admin: 06/30/20 13:36 Dose: 5,000 unit Documented by: Hydrophilic Ointment (Lip Therapy Vaseline) 1 applic TP Q2HR PRN PRN Reason: Dry Lips Last Admin: 07/12/20 20:22 Dose: 1 applic Documented by: Propofol (Diprivan 10 Mg/Ml) 1,000 mg in 100 mls @ 3.402 mls/hr IV TITR [facility]; Protocol Last Titration: 07/20/20 08:55 Dose: 10 mcg/kg/min, 6.804 mls/hr Documented by: Fentanyl Citrate (Fentanyl Drip Premix) 2,000 mcg in 100 mls @ 8 mls/hr IV TITR [facility]; Protocol Last Admin: 07/20/20 12:00 Dose: 2 mcg/kg/hr, 16 mls/hr Documented by: Norepinephrine (Levophed Drip 4 Mg/Ns 250 Ml) 4 mg in 250 mls @ 7.5 mls/hr IV TITR [facility]; Protocol Last Titration: 07/20/20 11:45 Dose: 4 mcg/min, 15 mls/hr Documented by: Vasopressin 20 unit/ Sodium (Chloride) 101 mls @ 9.09 mls/hr IV TITR [facility]; Protocol Last Titration: 07/18/20 15:36 Dose: 0 units/min, 0 mls/hr Documented by: Piperacillin Sod/Tazobactam Sod (Zosyn/Ns 4.5gm/100ml) 4.5 gm in 100 mls @ 200 mls/hr IV Q12H [facility]; Protocol Last Admin: 07/20/20 00:53 Dose: 200 mls/hr Documented by: Sodium Chloride (Nacl 0.9%) 100 mls @ 999 mls/hr IV PAM PRN PRN Reason: Hypotension Insulin Human Regular (Insulin Regular, Human 100 Units/1 Ml) 0 units SUB-Q Q6HR CONNOR; Protocol Last Admin: 07/20/20 06:16 Dose: Not Given Documented by: Multi-Ingred Cream/Lotion/Oil/Oint (Mineral Oil/Petrolatum, White Ophth Oint 3.5 Gm) 1 applic OU Q4HR PRN PRN Reason: Dry Eye(s) Last Admin: 07/12/20 20:22 Dose: 1 applic Documented by: Ondansetron HCl (Ondansetron 4 Mg/2 Ml Inj) 4 mg IV Q8H PRN PRN Reason: Nausea And Vomiting Pantoprazole Sodium (Pantoprazole 40 Mg Inj) 40 mg IV BID [facility] Last Admin: 07/20/20 09:16 Dose: 40 mg Documented by: Polyethylene Glycol (Polyethylene Glycol 3350 17 Gm Powder) 17 gm PO QDAY [facility] Last Admin: 07/20/20 09:16 Dose: Not Given Documented by: Quetiapine Fumarate (Quetiapine 200 Mg Tab) 200 mg PO BID [facility] Last Admin: 07/20/20 09:16 Dose: 200 mg Documented by: Simple Syrup (Simple Syrup 15 Ml) 15 ml FEEDTUBE PRN PRN PRN Reason: Hypoglycemia Last Admin: 07/19/20 00:48 Dose: 15 ml Documented by: Simple Syrup (Simple Syrup 15 Ml) 30 ml FEEDTUBE PRN PRN PRN Reason: Hypoglycemia Last Admin: 07/19/20 06:04 Dose: 30 ml Documented by: Sodium Bicarbonate (Sodium Bicarbonate 325 Mg Tab) 325 mg FEEDTUBE PRN PRN PRN Reason: For Clogged Feeding Tube Last Admin: 07/11/20 20:00 Dose: 325 mg Documented by: Sodium Bicarbonate (Sodium Bicarbonate 650 Mg Tab) 650 mg PO TID [facility] Last Admin: 07/20/20 08:16 Dose: 650 mg Documented by: Sodium Chloride (Sodium Chloride 0.9% 10 Ml Flush Syringe) 10 ml IV BID [facility] Last Admin: 07/20/20 09:17 Dose: 10 ml Documented by: Sodium Chloride (Sodium Chloride 0.9% 10 Ml Flush Syringe) 10 ml IV PRN PRN PRN Reason: LINE FLUSH Sodium Hypochlorite (Sodium Hypochlorite, Dakin's 1/2 Strength (0.25%) 473 Ml Topical Soln) 1 applic TP BID [facility] Last Admin: 07/20/20 12:20 Dose: 1 applicatio Documented by: Sodium Polystyrene Sulfonate (Sodium Polystyrene 15 Gm/60 Ml Oral Liqd) 15 gm PO Q6HR PRN PRN Reason: Hyperkalemia Last Admin: 07/05/20 10:36 Dose: 15 gm Documented by: Zinc Sulfate (Zinc Sulfate 220 Mg Cap) 220 mg PO BID [facility] Last Admin: 07/20/20 09:16 Dose: 220 mg Documented by: Review of Systems ROS unobtainable: due to endotracheal tube Exam Vital Signs Pulse Resp BP Pulse Ox 127 H 14 115/72 93 06/17/20 11:53 06/17/20 11:53 06/17/20 11:53 06/17/20 11:53 - General physical appearance Positive: well developed, well nourished, no distress - Eyes Positive: PERRL, normal occular movement - ENT Positive: normal pinna, normal nares, normal mucosa, no hearing loss, no congestion - Neck Positive: no masses, no bruits, trachea midline, no venous distension - Respiratory Positive: normal expansion, normal respiratory effort, clear to auscultation - Cardiovascular Rhythm: regular Heart Sounds: Present: S1 & S2. Absent: rub, click - Extremities Extremities: no ischemia, pulses symmetrical, No edema - Breasts Breasts: normal, no mass, no skin changes - Abdomen Abdomen: Present: soft, bowel sounds normal. Absent: tender, distended Hernia: none - Genitourinary Male Genitourinary: normal Female Genitourinary: normal - Integumentary no rash, no growths, no abnormal pigmentation, other (See Wound Care nurse's notes, photographs and measurements.) - Musculoskeletal normal gait, normal posture - Psychiatric Psychiatric: other (Intubated and sedated.) Results - Labs 07/20/20 06:07 07/19/20 09:15 Abnormal lab results 07/17/20 07/20/20 07/20/20 Range/Units Unknown 05:20 06:00 WBC (4.5-11.0) K/mm3 RBC (3.65-5.03) M/mm3 Hgb (11.8-15.2) gm/dl Hct (35.5-45.6) % RDW (13.2-15.2) % ABG Hemoglobin 6.3 L (12.0-17.5) ABG Sodium 130.0 L (136.0-145.0) mmol/L ABG Glucose 114 H (65-95) mg/dL POC Glucose 110 H (70-105) mg/dL Arterial Blood Glucose 114 H (65-95) mg/dL Arterial Blood Ionized Calcium 3.9 L (4.6-5.3) mg/dL Crossmatch See Detail 07/20/20 Range/Units 06:07 WBC 28.1 H (4.5-11.0) K/mm3 RBC 2.53 L (3.65-5.03) M/mm3 Hgb 7.7 L (11.8-15.2) gm/dl Hct 22.7 L (35.5-45.6) % RDW 15.5 H (13.2-15.2) % ABG Hemoglobin (12.0-17.5) ABG Sodium (136.0-145.0) mmol/L ABG Glucose (65-95) mg/dL POC Glucose (70-105) mg/dL Arterial Blood Glucose (65-95) mg/dL Arterial Blood Ionized Calcium (4.6-5.3) mg/dL Crossmatch Assessment and Plan - Patient Problems (1) Pressure ulcer of sacral region, stage 4 Current Visit: Yes Status: Acute Plan to address problem: 1) Off loading 2) Optimize nutritional support 3) I have obtained consent for debridement from the pt's . Debridement will be performed today.
--- NOTE | 2020-07-20 14:34 | Procedure Note ---
Date of procedure: 07/20/20 Pre-op diagnosis: Stage 4 sacral pressure ulcer Post-op diagnosis: same Procedure: Debridement of sacral pressure ulcer Description of procedure: Pt was placed left side down on his ICU bed. Necrotic skin, SQ tissue and muscle were surgically, excisionally debrided with forceps, scalpel and scissors. Bleeding was minimal and was controlled with pressure and silver nitrate. The wound was then packed open by the Wound Care nurse. Pt tolerated the procedure well. Post debridement measurements: 14.5 X 19 X 6.2 cm Anesthesia: none Surgeon: MANE AKBAR Estimated blood loss: minimal Pathology: none Specimen disposition: discarded Condition: stable Disposition: no change
--- NOTE | 2020-07-20 14:40 | Progress Note ---
Assessment and Plan Assessment and plan: -Vasopressor support (CCM and ID consulted, appreciate recommendations) -S/p dexamethasone and remdesivir therapy, contact/droplet isolation, remains on ventilation (wean as tolerated), vitamin C/vitamin D/zinc, anticoagulation per protocol, trend inflammatory markers -CT head with no acute process, supportive care -Wean mechanical ventilation as tolerated, VAP bundle -HD per nephrology -Transfuse for hemaglobin less than 7, s/p 9 units PRBC during stay -Per GI: Consider nuclear bleeding scan when stable -Nephrology, ID, heme-onc, GI , cardiology consulted,appreciate recommendations -BCR-ABL mutation testing pending -Repeat blood cultures pending (per ID need to remove/exchange lines if blood cultures positive); once off pressors, will de-escalate to IV Ampicillin -Hold systemic anticoagulation in setting of severe anemia -Amiodarone for rate control -s/p debridement by Dr. Kirk, WOCN consulted, WC per nursing -CTA abdomen/pelvis shows no active intermittent GI bleed, bibasilar pneumonia with pneumomediastinum and subcutaneous emphysema in the chest, possible mild infectious or inflammatory colitis, diffuse anasarca within the subcutaneous tissues of the pelvis and upper thighs, bilateral airspace consolidation with air bronchograms and patchy groundglass airspace disease demonstrated throughout the lung bases with no pneumothorax or pleural effusion DVT prophylaxis: GI prophylaxis, heparin subcu, SCDs to bilateral LE while in bed Disposition: ICU, ?placement ?trach/peg ?Ltach The high probability of a clinically significant, sudden or life threatening deterioration of the [multi] system(s) required my full and direct attention, intervention and personal management. The aggregate critical care time was [35] minutes. This time is in addition to time spent performing reported procedures but includes the following: [x] Data Review and interpretation [x] Patient assessment and monitoring of vital signs [x] Documentation [x] Medication orders and management History Interval history: 59-year-old white male who was admitted for pneumonia secondary to Covid with associated respiratory failure and sepsis. Severe septic shock COVID-19 pneumonia Sacral wound, stage 4 Acute metabolic encephalopathy Acute hypoxic respiratory failure Enterococcus bacteremia Pneumomediastinum Acute kidney injury likely secondary to acute tubular necrosis which progressed to hemodialysis SVT/proximal atrial fibrillation Elevated LFTs Anemia likely due to severe sepsis had declining renal function Morbid obesity Leukocytosis Hyperkalemia Hypocalcemia Hypoalbuminemia 06/18: Patient got intubated overnight. Patient was placed on BiPAP to maintain oxygenation with 100% FiO2 but apparently he found to take off his argueta which made his oxygen saturation go down at 60s/50s and patient was found altered mental status. Code met was called immediately. Patient was transferred to ICU and intubated, patient currently on 2 pressors, intubated with 100% FiO2, renal function noted to be decline, nephrology consulted. Discussed with [place] physician Dr. Thompson and requested call back on Saturday. Poor prognosis, continue to monitor with aggressive supportive care. Also called family/ to update clinical status. 06/19: Repeat COVID test was positive. cont cefepime, remdesivir per ID rec ommendation. follow inflammatory markers, cbc, bmp. placed on heparin drip for atrial fib 06/20: Remains on mechanical ventilation, on 2 pressors, on heparin drip. discussed with and daughter by phone. Renal function declining. cont supportive care for now. 06/21: Renal function cont to decline, urine outpt sig decreased. started on lasix 80mg BID, plan to follow urine output, if no improvement patient need to start on HD. called and daughter today. updated all clinical details 06/22: Renal function continues to decline with uremia and hyperkalemia. Will need to proceed with hemodialysis. Nephrology discussed with the family and they agrees for the hemodialysis. Patient remains on pressor support and mechanical ventilation. Vas-Cath placed today by vascular started on hemodialys is today. 06/23: 2nd round of HD today, remains on 2 pressors. per RN not tolerating TF, has no record of BM since 06/18. start on stool softner. follow cbc/bmp. updated family ( and daughter) by phone -all question answered to best of my knowledge and to their satisfaction. Patient remains critically ill with a very poor prognosis. 06/24: Continue supportive care, Very poor prognosis, Nib Inspector to discuss with family in am due to the futility of the condition. 06/25/2020 continue supportive care very poor prognosis 06/26/2020 continue supportive care very poor prognosis family updated 06/27/2020 continue supportive care and weaning if possible 06/28/2020 continue supportive care, talk with at length 06/29: Resumed care. K level persistently high. give one dose of bicarbonate, plan for HD today, recheck k after HD. updated family by phone 06/30: updated family by phone. Patient remains on amiodarone drip and vasopressin. Getting HD at the bedside. Tolerating tube feeding at low rate. 07/01: Hb dropped to 6.4 today, transfuse one unit PRBC. patient is off pressor today, remains on amioderone. cont to monitor 07/02: Called patient and updated clinical details. Patient remains critically ill, still intubated. Patient's oxygen requirement and PEEP pressure has went down. Continue weaning protocol per critical care recommendation. Patient remains off pressor. Continue to wean off from amiodarone and plan to rate control with p.o. medications. Tolerating tube feeding. H&H stable today. Order for stool for occult blood. Monitor H&H and BMP. Continue to follow clinically 07/03: discussed with [place] physician today. Patient back on 100percent Fio2 since last night. planned for emergent Hd today. spiked fever, start IV Cefepime + Vancomycin renally dosed. Restarted Levophed today, remains on amiodarone drip. Patient family was updated by critical care attending today. 07/04: Patient has hemodialysis yesterday and also plan for today for volume overload and pulmonary edema. Patient currently on 80% FiO2. Remains on Levophed and amiodarone. Hemoglobin dropped to 6.7 without any evidence of active bleeding. LFTs remain stable. Repeat Covid test on 06/30 and 07/03 remains positive. Will transfuse another unit of packed RBC today. Called family for update -explained family that patient is critically ill with very poor prognosis. 07/05: Patient on 70% FiO2 with PEEP of 14. h/h stable after transfusion. hyperkalemia improved, cont sodiumbicarbonate pill with TF. follow BMP. off levophed today, remains on amioderone. poor prognosis. 07/06: Patient remains on amiodarone drip, maintaining BP without any pressor. FiO2 requirement trended down to 60% with PEEP of 14. Continue to follow clinically. Plan to wean off amiodarone drip as tolerated. Wean off from sedation as tolerated. Updated family. Patient remains critically ill with poor prognosis. 07/07: Called family for update. Off amiodarone drip today, patient also off pressor. FiO2 requirement trended up again to 80-100%. Continue to provide supportive care, monitor clinically. Having difficulty to wean off from the vent support. Patient is persistently positive for COVID-19 and COVID-19 antibody is nonreactive. Patient remains critically ill with very poor prognosis. 07/08: Continue supportive care. 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 Prognosis remains guarded to poor. Management per team. Critical care time 35-minute 07/09/20 patient is tachycardic. Heart rate 121. Hemoglobin 7.3. Patient is having hemodialysis. Continue supportive care. Patient having difficulty to wean off from the vent support. Prognosis is poor. Nephrology and cardiology follow-up. Recheck CBC BMP in the morning. Continue current management. 07/10/20 patient seen and examined, remains on full ventilator patient is doing better. Patient is off pressor. heart rate 123. Hemoglobin 6.8 and hematocrit 20.7. WBC is 18.1. Continue supportive care. Patient having difficulty to wean off from the vent support. We will started on Zosyn 4.5 g IV every 8 hours. Will transfuse 1 unit of packed red blood cell. Prognosis is poor. Nephrology and cardiology follow up. Recheck CBC BMP in the morning 07/11: remains off vasopressor, h/h appropriately responded to 1 unit PRBC. HD today. Remain on MV with fiO2 at 70%. peep 10. No acute events reported overnight. 07/12: Patient remains in atrial fibrillation on the supervisor erection shop, v asopressor support with Levophed and vasopressin, sedated with fentanyl and propofol. Vent settings: CMV 500/25/14/0.60. Patient remains hypercarbic on ABG 07/13: Patient remains on vasopressin, fentanyl and propofol with rectal tube in place. This morning some examination patient was on assist control 25/500/14/0.60. Patient received hemodialysis today. No acute events reported overnight. 07/14: Remains on vasopressin, fentanyl and propofol with tube in place. Rectal tube in place with noted blood clots, GI consulted, on 07/13 H/H dropped from 8.7/27 to 7.4/22 and anticoagulation discontinued. This morning I spoke to his who still wishes for the patient to remain a full code despite update with continued use of vasopressor (vasopressin), current ventilatory support (CMV 500/25/14/0.60) and recent development of rectal bleeding. Patient's family requests an update from [facility] and GI. Cardio changed amio from PO to IV given elevated HR 07/15: Today the patient received a total of 5 units of PRBC and is still having bleeding through his rectal tube. CTA abdomen/pelvis is pending, patient remains on Levophed, fentanyl, propofol, vasopressin and received hemodialysis today. He was also hyperkalemic today to 6 and he received insulin and D50. Extensive conversation with family conducted by [facility] and hospitalist and his and 2 daughters did visit him today at the bedside. 07/16: Continues with full ventilatory support. FMS still inplace with some loose bloody stool. Still on multiple pressors, Bilateral swollen and generalized anascara. Monitor H/H and transfuse as needed. Monitor K level. Discussed with family at bedside yesterday. 07/17: Continue supportive care, transfusion blood possible in am with HD, continue abx, very poor prognosis, blood pressure still labile. Discussed with nurse at bedside 07/18: CTA abdomen/pelvis completed, antibiotics changed to Zosyn per infectious disease, remains on mechanical ventilation 450/25/12/0.55 continue amiodarone drip for 24 more hours, blood culture grew Enterococcus. Remains sedated on propofol and fentanyl. Not on vasopressor support today 07/19: No acute events reported overnight, remains sedated with fentanyl and propo fol and off vasopressor therapy today. 07/20: s/p debridement with surgery today, remains on fentanyl, propofol, Levophed and current vent settings 450/25/10/0.45. Patient will be transferred to a bariatric bed once available. Hospitalist Physical - Constitutional Vitals: Temp Pulse Resp BP Pulse Ox 98.2 F 104 H 16 94/55 99 07/20/20 12:00 07/20/20 14:00 07/20/20 14:00 07/20/20 14:07/20/20 14:00 General appearance: Present: mild distress, well-nourished - EENT ENT: ulcerations - Respiratory Respiratory effort: normal Respiratory: bilateral: diminished - Cardiovascular Rhythm: regular Heart Sounds: Present: S1 & S2. Absent: systolic murmur, diastolic murmur - Extremities Extremities: no ischemia, pulses intact, pulses symmetrical, No edema, normal temperature, normal color, Full ROM Peripheral Pulses: within normal limits - Abdominal General gastrointestinal: soft, non-tender, non-distended, normal bowel sounds - Integumentary Integumentary: Present: dry - Psychiatric Psychiatric: other (sedated) - Neurologic Neurologic: other (sedated) HEART Score - HEART Score Troponin: Troponin T < 0.010 ng/mL (0.00-0.029) 06/17/20 12:33 Results - Labs CBC & Chem 7: 07/20/20 06:07 07/19/20 09:15 Labs: Laboratory Last Values WBC 28.1 K/mm3 (4.5-11.0) H 07/20/20 06:07 RBC 2.53 M/mm3 (3.65-5.03) L 07/20/20 06:07 Hgb 7.7 gm/dl (11.8-15.2) L 07/20/20 06:07 Hct 22.7 % (35.5-45.6) L 07/20/20 06:07 MCV 90 fl (84-94) 07/20/20 06:07 MCH 31 pg (28-32) 07/20/20 06:07 MCHC 34 % (32-34) 07/20/20 06:07 RDW 15.5 % (13.2-15.2) H 07/20/20 06:07 Plt Count 185 K/mm3 (140-440) 07/20/20 06:07 Lymph % (Auto) 5.6 % (13.4-35.0) L 07/12/20 03:40 [place] % (Auto) 7.4 % (0.0-7.3) H 07/12/20 03:40 Eos % (Auto) 2.8 % (0.0-4.3) 07/12/20 03:40 Baso % (Auto) 0.3 % (0.0-1.8) 07/12/20 03:40 Lymph # (Auto) 1.4 K/mm3 (1.2-5.4) 07/12/20 03:40 [place] # (Auto) 1.8 K/mm3 (0.0-0.8) H 07/12/20 03:40 Eos # (Auto) 0.7 K/mm3 (0.0-0.4) H 07/12/20 03:40 Baso # (Auto) 0.1 K/mm3 (0.0-0.1) 07/12/20 03:40 Add Manual Diff Complete 07/17/20 15:25 Total Counted 100 07/17/20 15:25 Seg Neutrophils % Census Taker 07/17/20 15:25 Seg Neuts % (Manual) 87.0 % (40.0-70.0) H 07/17/20 15:25 Band Neutrophils % 2 % 07/17/20 15:25 Lymphocytes % (Manual) 3.0 % (13.4-35.0) L 07/17/20 15:25 Reactive Lymphs % (Man) 1.0 % 06/23/20 04:00 Monocytes % (Manual) 7.0 % (0.0-7.3) 07/17/20 15:25 Eosinophils % (Manual) 4.0 % (0.0-4.3) 07/11/20 06:52 Metamyelocytes % 1 % 07/17/20 15:25 Myelocytes % 0 % 07/17/20 15:25 Promyelocytes % 0 % 07/17/20 15:25 Nucleated RBC % Not Reportable 07/17/20 15:25 Seg Neutrophils # 20.4 K/mm3 (1.8-7.7) H 07/12/20 03:40 Seg Neutrophils # Man 40.2 K/mm3 (1.8-7.7) H 07/17/20 15:25 Band Neutrophils # 0.9 K/mm3 07/17/20 15:25 Lymphocytes # (Manual) 1.4 K/mm3 (1.2-5.4) 07/17/20 15:25 Abs React Lymphs (Man) 0.0 K/mm3 07/17/20 15:25 Monocytes # (Manual) 3.2 K/mm3 (0.0-0.8) H 07/17/20 15:25 Eosinophils # (Manual) 0.0 K/mm3 (0.0-0.4) 07/17/20 15:25 Basophils # (Manual) 0.0 K/mm3 (0.0-0.1) 07/17/20 15:25 Metamyelocytes # 0.5 K/mm3 07/17/20 15:25 Myelocytes # 0.0 K/mm3 07/17/20 15:25 Promyelocytes # 0.0 K/mm3 07/17/20 15:25 Blast Cells # 0.0 K/mm3 07/17/20 15:25 Pathologist Review 07/17/20 15:25 WBC Morphology Not Reportable 07/17/20 15:25 Hypersegmented Neuts Not Reportable 07/17/20 15:25 Hyposegmented Neuts Not Reportable 07/17/20 15:25 Hypogranular Neuts Not Reportable 07/17/20 15:25 Smudge Cells Not Reportable 07/17/20 15:25 Toxic Granulation Not Reportable 07/17/20 15:25 Toxic Vacuolation Not Reportable 07/17/20 15:25 Dohle Bodies Not Reportable 07/17/20 15:25 Pelger-Huet Anomaly Not Reportable 07/17/20 15:25 Carlito Rods Not Reportable 07/17/20 15:25 Platelet Estimate Not Reportable 07/17/20 15:25 Clumped Platelets Not Reportable 07/17/20 15:25 Plt Clumps, EDTA Not Reportable 07/17/20 15:25 Large Platelets Not Reportable 07/17/20 15:25 Giant Platelets Not Reportable 07/17/20 15:25 Platelet Satelliting Not Reportable 07/17/20 15:25 Plt Morphology Comment Not Reportable 07/17/20 15:25 RBC Morphology Not Reportable 07/17/20 15:25 Dimorphic RBCs Not Reportable 07/17/20 15:25 Polychromasia Not Reportable 07/17/20 15:25 Hypochromasia Not Reportable 07/17/20 15:25 Poikilocytosis Not Reportable 07/17/20 15:25 Anisocytosis Rare 07/17/20 15:25 Microcytosis Rare 07/17/20 15:25 Macrocytosis Not Reportable 07/17/20 15:25 Spherocytes Not Reportable 07/17/20 15:25 Pappenheimer Bodies Not Reportable 07/17/20 15:25 Sickle Cells Not Reportable 07/17/20 15:25 Target Cells Not Reportable 07/17/20 15:25 Tear Drop Cells Not Reportable 07/17/20 15:25 Ovalocytes Not Reportable 07/17/20 15:25 Stomatocytes Rare 07/10/20 03:55 Helmet Cells Not Reportable 07/17/20 15:25 [place] Bodies Not Reportable 07/17/20 15:25 Mcintosh Rings Not Reportable 07/17/20 15:25 [place] Cells Not Reportable 07/17/20 15:25 Bite Cells Not Reportable 07/17/20 15:25 Crenated Cell Not Reportable 07/17/20 15:25 Elliptocytes Not Reportable 07/17/20 15:25 Acanthocytes (Spur) Not Reportable 07/17/20 15:25 Rouleaux Not Reportable 07/17/20 15:25 Hemoglobin C Crystals Not Reportable 07/17/20 15:25 Schistocytes Not Reportable 07/17/20 15:25 Malaria parasites Not Reportable 07/17/20 15:25 Victoriano Bodies Not Reportable 07/17/20 15:25 Hem Pathologist Commnt Sent to pathology 07/17/20 15:25 PT 18.2 Sec. (12.2-14.9) H 07/17/20 15:25 INR 1.52 (0.87-1.13) H 07/17/20 15:25 APTT 28.5 Sec. (24.2-36.6) 06/26/20 05:47 Fibrinogen 419 mg/dl (211-480) 07/15/20 08:21 D-Dimer 6608.00 ng/mlDDU (0-234) H 07/03/20 14:50 Heparin Anti-Xa Level < 0.10 U.I./ml (0.3-0.7) L 06/26/20 01:30 ABG pH 7.367 (7.320-7.450) 07/20/20 06:00 POC ABG pCO2 39.1 mmHg (32.0-48.0) 07/20/20 06:00 ABG pCO2 56.4 mm Hg 07/05/20 04:30 POC ABG pO2 86.2 mmHg (83-108) 07/20/20 06:00 ABG pO2 151.9 mm Hg (80.0-90.0) H 07/05/20 04:30 POC ABG HCO3 21.9 07/20/20 06:00 ABG HCO3 26.8 mmol/L (20.0-26.0) H 07/05/20 04:30 ABG O2 Saturation 96.7 (0-100) 07/20/20 06:00 ABG O2 Content 5.0 (0.0-44) 07/04/20 05:20 POC ABG Base Excess -3.1 07/20/20 06:00 ABG Base Excess 0.1 mmol/L (-2.0-3.0) 07/05/20 04:30 ABG Hemoglobin 6.3 (12.0-17.5) L 07/20/20 06:00 ABG Oxyhemoglobin 95 (94-98) 07/19/20 03:57 ABG Carboxyhemoglobin 1.7 % (0.0-5.0) 07/05/20 04:30 ABG Methemoglobin 0.3 (0.0-1.5) 07/19/20 03:57 ABG Sodium 130.0 mmol/L (136.0-145.0) L 07/20/20 06:00 ABG Potassium 3.6 mmol/L (3.40-4.50) 07/20/20 06:00 ABG Chloride 100.0 mmol/L (98-107) 07/20/20 06:00 ABG Glucose 114 mg/dL (65-95) H 07/20/20 06:00 Oxyhemoglobin 96.5 % (95.0-99.0) 07/05/20 04:30 Carboxyhemoglobin 1.0 (0.5-1.5) 07/19/20 03:57 FiO2 50 07/20/20 06:00 Sodium 135 mmol/L (137-145) L 07/19/20 09:15 Potassium 4.2 mmol/L (3.6-5.0) D 07/19/20 09:15 Chloride 96.3 mmol/L (98-107) L 07/19/20 09:15 Carbon Dioxide 25 mmol/L (22-30) 07/19/20 09:15 Anion Gap 18 mmol/L 07/19/20 09:15 BUN 61 mg/dL (9-20) H 07/19/20 09:15 Creatinine 2.8 mg/dL (0.8-1.3) H 07/19/20 09:15 Estimated GFR 28 ml/min 07/19/20 09:15 BUN/Creatinine Ratio 22 % 07/19/20 09:15 Glucose 87 mg/dL (75-100) 07/19/20 09:15 POC Glucose 110 mg/dL (70-105) H 07/20/20 05:20 Lactic Acid 1.40 mmol/L (0.7-2.0) 07/13/20 08:48 Calcium 6.8 mg/dL (8.4-10.2) L 07/19/20 09:15 Phosphorus 9.40 mg/dL (2.5-4.5) H 06/30/20 03:50 Magnesium 2.70 mg/dL (1.7-2.3) H 06/18/20 20:33 Ferritin 1171.0 ng/mL (30.0-300.0) H 07/03/20 14:50 Total Bilirubin 0.40 mg/dL (0.1-1.2) 07/19/20 09:15 Direct Bilirubin 0.5 mg/dL (0-0.2) H 07/05/20 08:21 Indirect Bilirubin 0.1 mg/dL 07/05/20 08:21 AST 54 units/L (5-40) H 07/19/20 09:15 ALT 65 units/L (7-56) H 07/19/20 09:15 Alkaline Phosphatase 116 units/L (35-129) 07/19/20 09:15 Lactate Dehydrogenase 525 units/L (91-180) H 07/03/20 14:50 Total Creatine Kinase 618 units/L (55-170) H 06/29/20 Unknown Troponin T < 0.010 ng/mL (0.00-0.029) 06/17/20 12:33 C-Reactive Protein 31.50 mg/dL (0.00-1.30) H 07/03/20 14:50 Total Protein 4.3 g/dL (6.3-8.2) L 07/19/20 09:15 Albumin 1.8 g/dL (3.9-5) L 07/19/20 09:15 Albumin/Globulin Ratio 0.7 % 07/19/20 09:15 Triglycerides 306 mg/dL (2-149) H 07/18/20 05:06 Procalcitonin 6.05 ng/mL (<0.15) 07/13/20 06:59 Arterial Blood Glucose 114 mg/dL (65-95) H 07/20/20 06:00 Arterial Blood Ionized Calcium 3.9 mg/dL (4.6-5.3) L 07/20/20 06:00 Urine Color Yellow (Yellow) 06/17/20 15:57 Urine Turbidity Clear (Clear) 06/17/20 15:57 Urine pH 6.0 (5.0-7.0) 06/17/20 15:57 Ur Specific Start 1.019 (1.003-1.030) 06/17/20 15:57 Urine Protein 30 mg/dl mg/dL (Negative) 06/17/20 15:57 Urine Glucose (UA) Neg mg/dL (Negative) 06/17/20 15:57 Urine Ketones Neg mg/dL (Negative) 06/17/20 15:57 Urine Blood Sm (Negative) 06/17/20 15:57 Urine Nitrite Neg (Negative) 06/17/20 15:57 Ur Reducing Substances Not Reportable 06/17/20 15:57 Urine Bilirubin Neg (Negative) 06/17/20 15:57 Urine Ictotest Not Reportable 06/17/20 15:57 Urine Urobilinogen < 2.0 mg/dL (<2.0) 06/17/20 15:57 Ur Leukocyte Esterase Neg (Negative) 06/17/20 15:57 Urine WBC (Auto) 1.0 /HPF (0.0-6.0) 06/17/20 15:57 Urine RBC (Auto) 2.0 /HPF (0.0-6.0) 06/17/20 15:57 Urine Mucus Few /HPF 06/17/20 15:57 Urine Creatinine 192.4 mg/dL (0.1-20.0) H 06/18/20 15:00 Urine Sodium 28 mmol/L 06/18/20 15:00 Urine Chloride 31.1 mmolL (110-250) L 06/18/20 15:00 Nasal Screen MRSA (PCR) Negative (Negative) 06/19/20 10:38 Vancomycin Trough 22.7 ug/mL (5.0-20.0) H 06/20/20 08:25 Random Vancomycin 13.5 ug/mL (0-40.0) 07/16/20 07:17 Coronavirus (PCR) Positive (Negative) A 07/03/20 10:10 Hepatitis A IgM Ab Non-reactive (NonReactive) 06/22/20 17:00 Hep Bs Antigen Non-reactive (Negative) 06/22/20 17:00 Hep B Core IgM Ab Non-reactive (NonReactive) 06/22/20 17:00 Hepatitis C Antibody Non-reactive (NonReactive) 06/22/20 17:00 SARS-CoV-2 IgG Ab Nonreactive (NonReactive) 07/04/20 05:20 Blood Type A POSITIVE 07/17/20 Unknown Antibody Screen Negative 07/17/20 Unknown Crossmatch See Detail 07/17/20 Unknown Microbiology: Microbiology 07/15/20 08:21 Peripheral/Venous Blood Culture - Final NO GROWTH AFTER 5 DAYS 07/15/20 08:38 Peripheral/Venous Blood Culture - Final NO GROWTH AFTER 5 DAYS 07/18/20 18:20 Peripheral/Venous Blood Culture - Preliminary NO GROWTH AFTER 24 HOURS 07/18/20 18:05 Peripheral/Venous Blood Culture - Preliminary NO GROWTH AFTER 24 HOURS - Diagnostic Impressions Diagnostic Impressions: Echocardiogram 06/29/20 06:00 Transthoracic Echocardiogram Indication: A-fib BP: 105/47 HR: 99 Conclusions *The study is technically very difficult and limited due to poor acoustic windows. *Global left ventricular wall motion and contractility are within normal limits. *The estimated ejection fraction is 55-60%. *There is no pericardial effusion. Findings Procedure Info: The study quality is technically difficult. The study is technically limited due to poor acoustic windows. Left Ventricle: Global left ventricular wall motion and contractility are within normal limits. Global left ventricular systolic function is normal. The estimated ejection fraction is 55-60%. Left Atrium: The left atrium is not well visualized. Right Ventricle: The right ventricle is not well visualized. Right Atrium: The right atrium is not well visualized. Aortic Valve: The aortic valve is not well visualized. Mitral Valve: The mitral valve is not well visualized. Tricuspid Valve: The tricuspid valve is not well visualized. Pulmonic Valve: The pulmonic valve is not well visualized. Pericardium: There is no pericardial effusion. Venous: There is no change in the dimension of the inferior vena cava with respiration consistent with markedly increased right atrial pressure. [place]ell/IV: Voiding Method Incontinent Active Medications - Current Medications Current Medications: Generic Name Dose Route Start Last Admin Trade Name Freq PRN Reason Stop Dose Admin Acetaminophen 650 mg 06/17/20 14:17 07/03/20 09:16 Acetaminophen 325 Mg Tab PO 650 mg Q4H PRN Administration Pain MILD(1-3)/Fever >100.5/ROBERTS Albuterol 2.5 mg 07/19/20 12:15 Albuterol 2.5 Mg/3 Ml Nebu IH Q6HRT PRN Shortness Of Breath Amiodarone HCl 200 mg 07/19/20 14:00 07/20/20 09:16 Amiodarone 200 Mg Tab PO 200 mg BID CONNOR Administration Lipase/Protease/Amylase 1 each 06/19/20 12:15 Lipase 10,500/Protease 25,000/Amylase 43,750 (Units) Dr Cap FEEDTUBE PRN PRN For Clogged Feeding Tube Ascorbic Acid 250 mg 06/17/20 22:00 07/20/20 09:16 Ascorbic Acid 250 Mg Tab PO 250 mg BID CONNOR Administration Cholecalciferol 1,000 unit 06/18/20 10:00 07/20/20 09:16 Cholecalciferol (Vit D3) 1000 Unit (25 Mcg) Tab PO 1,000 unit DAILY CONNOR Administration Docusate Sodium 100 mg 06/23/20 15:00 07/20/20 12:21 Docusate Sodium 100 Mg/10 Ml Oral Liqd FEEDTUBE Not Given BID CONNOR Fentanyl 50 mcg 06/18/20 01:02 07/09/20 00:20 Fentanyl 100 Mcg/2 Ml Inj IV 50 mcg Q10MIN PRN Administration ANALGESIA Heparin Sodium (Porcine) 5,000 unit 06/22/20 12:53 06/30/20 13:36 Heparin 10,000 Unit/1 Ml Vial IV 5,000 unit PAM PRN Administration hemodialysis Hydrophilic Ointment 1 applic 06/17/20 22:52 07/12/20 20:22 Lip Therapy Vaseline TP 1 applic Q2HR PRN Administration Dry Lips Propofol 1,000 mg in 100 mls @ 3.402 mls/hr 06/18/20 01:00 07/20/20 08:55 Diprivan 10 Mg/Ml IV 10 mcg/kg/min TITR CONNOR 6.804 mls/hr Titration Protocol 5 MCG/KG/MIN Fentanyl Citrate 2,000 mcg in 100 mls @ 8 mls/hr 06/18/20 02:00 07/20/20 12:00 Fentanyl Drip Premix IV 2 mcg/kg/hr TITR CONNOR 16 mls/hr Administration Protocol 1 MCG/KG/HR Norepinephrine 4 mg in 250 mls @ 7.5 mls/hr 07/08/20 02:06 07/20/20 11:45 Levophed Drip 4 Mg/Ns 250 Ml IV 4 mcg/min TITR [facility] 15 mls/hr Titration Protocol 2 MCG/MIN Vasopressin 20 unit/ Sodium 101 mls @ 9.09 mls/hr 07/11/20 11:00 07/18/20 15:36 Chloride IV 0 units/min TITR [facility] 0 mls/hr Titration Protocol 0.03 UNITS/MIN Piperacillin Sod/Tazobactam Sod 4.5 gm in 100 mls @ 200 mls/hr 07/18/20 13:00 07/20/20 00:53 Zosyn/Ns 4.5gm/100ml IV 200 mls/hr Q12H [facility]NOR Administration Protocol Sodium Chloride 100 mls @ 999 mls/hr 07/19/20 08:22 Nacl 0.9% IV PAM PRN Hypotension Insulin Human Regular 0 units 06/18/20 12:00 07/20/20 06:16 Insulin Regular, Human 100 Units/1 Ml SUB-Q Not Given Q6HR [facility] Protocol Multi-Ingred Cream/Lotion/Oil/Oint 1 applic 06/17/20 22:52 07/12/20 20:22 Mineral Oil/Petrolatum, White Ophth Oint 3.5 Gm OU 1 applic Q4HR PRN Administration Dry Eye(s) Ondansetron HCl 4 mg 06/17/20 14:17 Ondansetron 4 Mg/2 Ml Inj IV Q8H PRN Nausea And Vomiting Pantoprazole Sodium 40 mg 07/16/20 22:00 07/20/20 09:16 Pantoprazole 40 Mg Inj IV 40 mg BID [facility] Administration Polyethylene Glycol 17 gm 06/23/20 15:00 07/20/20 09:16 Polyethylene Glycol 3350 17 Gm Powder PO Not Given QDAY [facility] Quetiapine Fumarate 200 mg 06/28/20 13:00 07/20/20 09:16 Quetiapine 200 Mg Tab PO 200 mg BID CONNOR Administration Simple Syrup 15 ml 06/19/20 12:15 07/19/20 00:48 Simple Syrup 15 Ml FEEDTUBE 15 ml PRN PRN Administration Hypoglycemia Simple Syrup 30 ml 06/19/20 12:15 07/19/20 06:04 Simple Syrup 15 Ml FEEDTUBE 30 ml PRN PRN Administration Hypoglycemia Sodium Bicarbonate 325 mg 06/19/20 12:15 07/11/20 20:00 Sodium Bicarbonate 325 Mg Tab FEEDTUBE 325 mg PRN PRN Administration For Clogged Feeding Tube Sodium Bicarbonate 650 mg 07/04/20 10:00 07/20/20 08:16 Sodium Bicarbonate 650 Mg Tab PO 650 mg TID CONNOR Administration Sodium Chloride 10 ml 06/17/20 22:00 07/20/20 09:17 Sodium Chloride 0.9% 10 Ml Flush Syringe IV 10 ml BID CONNOR Administration Sodium Chloride 10 ml 06/17/20 14:17 Sodium Chloride 0.9% 10 Ml Flush Syringe IV PRN PRN LINE FLUSH Sodium Hypochlorite 1 applic 07/20/20 10:00 07/20/20 12:20 Sodium Hypochlorite, Dakin's 1/2 Strength (0.25%) 473 Ml Topical Soln TP 1 applicatio BID CONNOR Administration Sodium Polystyrene Sulfonate 15 gm 07/03/20 11:19 07/05/20 10:36 Sodium Polystyrene 15 Gm/60 Ml Oral Liqd PO 15 gm Q6HR PRN Administration Hyperkalemia Zinc Sulfate 220 mg 06/17/20 22:00 07/20/20 09:16 Zinc Sulfate 220 Mg Cap PO 220 mg BID CONNOR Administration Nutrition/Malnutrition Assess - Dietary Evaluation Nutrition/Malnutrition Findings: Nutrition Notes Start: 06/18/20 10:28 Freq: Status: Active Protocol: Document 07/19/20 11:18 AL (Rec: 07/19/20 11:28 AL [id number]) Co-Sign 07/19/20 11:18 LP Nutrition Notes Initial or Follow up Reassessment Current Diagnosis Acute Kidney Injury,Sepsis, Respiratory Failure Other Pertinent Diagnosis COVID-19 (+), pneu Current Diet NPO Labs/Tests K 5.4 BUN 79 Cr 3.2 Pertinent Medications Propofol at 6.8 ml/hr (180 kcal) Height 6 ft Weight 153.3 kg [place] Body Weight (kg) 80.90 BMI 45.8 Weight change and time frame Wt change of 6.6 kg noted (4.7 %). Pt on HD Weight Status Obese Subjective/Other Information FU for stable TF. Per RN note, pt had GI bleed and TF was stopped on 07/14. This morning, RN restarted TF at 25 ml/hr and will incresase by 10 ml q8h. Percent of energy/protein needs met: 50%/29% Burn Absent Trauma Absent GI Symptoms Other Current % PO Negligible Minimum of two criteria No physical signs of malnutrition #2 Nutrition Diagnosis Overweight/obesity Diagnosis Progress(for reassessment Continues documentation) #1 Nutrition Diagnosis Inadequate oral intake Diagnosis Progress(for reassessment Continues documentation) Is patient on ventilator? Yes Is Patient Ambulatory and/or Out of Bed No [facility] 2849.316 Kcal/Kg value to use for calculation 14 Approximate Energy Requirements Using 2146 kcal/Kg Calculation Used for Recommendations Kcal/kg Additional Notes Protein needs up to >2 g/kg IBW: 162 g Fluid needs: 1,000 ml + output Nutrition Intervention Change Diet Order: TF Nutrition Support: Nepro 1.8 at 50 ml/hr Flush 215 ml q4h Kcal 2,160 Protein (gm) 97 Fluid (mL) 872 Goal #1 Tolerate TF at goal rate Goal #2 Meet energy and protein needs as best as possible. Anticipated Discharge Needs: Unable to determine at the time. Follow-Up By: 07/22/20 Additional Comments F/U for TF at goal rate and vent status
--- NOTE | 2020-07-20 15:30 | Event Note ---
I updated Mrs. Kelby Graham over the phone at [phone] on current treatment and events related to Mr. Graham. All questions answered.
[2020-07-20] MEDS: EPOETIN ALFA-EPBX 10,000 UNIT/1 ML VIAL IV PRN (18:24)
[2020-07-21] MEDS: NORepinephrine/NS 4 MG-250 ML 4 MG/250 ML BAG IV SCH (00:21)
[2020-07-21] MEDS: fentaNYL DRIP Premix 2,000 MCG/100 ML BAG IV SCH ×4 (00:21→21:50)
[2020-07-21] MEDS: INSULIN REGULAR, HUMAN 100 UNITS/1 ML SUB-Q SCH ×4 (00:22→18:04)
[2020-07-21] MEDS: PIPERACIL/TAZOBACTA 4.5/NS 100 4.5 GM/100 ML VIAL IV SCH (01:39)
[2020-07-21 05:24] LABS: Hematocrit 25.2 % (35.5-45.6); Hemoglobin 8.5 gm/dl (11.8-15.2); Mean Corpuscular HGB Conc 34 % (32-34); Mean Corpuscular Volume 91 fl (84-94); Red Blood Count 2.78 M/mm3 (3.65-5.03); Red Cell Distribution Width 15.7 % (13.2-15.2)
[2020-07-21 05:26] LABS: Platelet Count 74 K/mm3 (140-440)
[2020-07-21] MEDS: SODIUM BICARBONATE 650 MG TAB PO SCH ×3 (08:40→20:43)
[2020-07-21] MEDS: CHOLECALCIFEROL (VIT D3) 1000 UNIT (25 mcg) TAB PO SCH (09:30)
[2020-07-21] MEDS: PANTOPRAZOLE 40 MG INJ IV SCH ×2 (09:30→21:12)
[2020-07-21] MEDS: ZINC SULFATE 220 MG CAP PO SCH ×2 (09:30→21:12)
[2020-07-21] MEDS: QUEtiapine 200 MG TAB PO SCH ×2 (09:30→21:12)
[2020-07-21] MEDS: AMIODARONE 200 MG TAB PO SCH ×2 (09:31→21:11)
[2020-07-21] MEDS: ASCORBIC ACID 250 MG TAB PO SCH ×2 (09:31→21:12)
[2020-07-21] MEDS: DOCUSATE SODIUM 100 MG/10 ML ORAL LIQD FEEDTUBE SCH ×2 (09:31→21:11)
[2020-07-21] MEDS: SODIUM HYPOCHLORITE, DAKIN'S 1/2 STRENGTH (0.25%) 473 ML TOPICAL SOLN TP SCH ×2 (09:32→21:11)
[2020-07-21] MEDS: POLYETHYLENE GLYCOL 3350 17 GM POWDER PO SCH (09:39)
--- NOTE | 2020-07-21 11:42 | Progress Note ---
Assessment and Plan Cultures: SARS CoV2 PCR: Positive 06/17/2020 blood culture: No growth 06/17/2020 sputum culture: No growth 07/15/2020 blood culture: No growth 07/15/2020 fungal blood culture: Enterococcus faecalis 07/15/2020 tracheal aspirate culture: Usual respiratory otf 07/18/2020 blood culture: no growth A/P: 59-year-old male with obesity, obesity hypoventilation syndrome: #Severe sepsis with septic shock, ?also component of hemorrhagic shock #Enterococcus bacteremia: 07/15/2020 fungal blood culture: Growing Enterococcus. ?gut translocation. Interestingly other blood cultures from that day were negative. CT abdomen shows some colitis. If repeat blood cultures negative, will finish 14 days of abx. #Anemia, GI bleed: GI on board. #Critical COVID-19 pneumonia: s/p abx, steroids and remdesivir. #Acute hypoxic respiratory failure: on the vent. Also with pneumomediastinum, subcutaneous emphysema. #GIRISH: remains on HD per nephrology. Renally dose abx. #Sacral decubitus: s/p debridement by Dr. Kirk on 07/20/2020. Recs: -off pressors, will de-escalate to IV Ampicillin, renally dosed, d/w pharmacy -unless repeat blood cultures turn positive, no need to remove/exchange lines -monitor fever and WBC -overall, very poor prognosis Tj Fajardo MD, FACP [facility] O: [phone] F: [phone] Subjective Date of service: 07/21/20 Principal diagnosis: ARF; Septic Shock; COVID-19 PNA; Atrial fibrillation; Obesity Interval history: Afebrile. Remains on the vent. Off pressors. Objective - Exam Narrative Exam: Physical Exam (reviewed in chart to minimize risk of transmission) Constitutional: deferred Head, Ears, Nose: deferred Eyes: deferred Neck: deferred Oral: deferred Cardiovascular: deferred Respiratory: deferred GI: deferred Musculoskeletal: deferred Skin: deferred Hem/Lymphatic: deferred Psych: deferred Neurological: deferred - Constitutional Vitals: Vital Signs Temp Pulse Resp BP Pulse Ox 97.1 F L 82 18 125/47 98 07/21/20 03:52 07/21/20 11:15 07/21/20 11:15 07/21/20 11:15 07/21/20 11:15 Temperature -Last 24 Hours Temperature 97.1 F Temperature 97.7 F Temperature 97.2 F Temperature 98.0 F Temperature 97.9 F Temperature 97.9 F Temperature 98.2 F - Labs CBC & Chem 7: 07/21/20 05:02 07/19/20 09:15 Labs: Abnormal lab results 07/20/20 07/21/20 07/21/20 Range/Units 17:19 05:02 05:40 WBC 32.9 H (4.5-11.0) K/mm3 RBC 2.78 L (3.65-5.03) M/mm3 Hgb 8.5 L (11.8-15.2) gm/dl Hct 25.2 L (35.5-45.6) % RDW 15.7 H (13.2-15.2) % Plt Count 74 L (140-440) K/mm3 POC ABG pO2 73.2 L (83-108) mmHg ABG Hemoglobin 9.1 L (12.0-17.5) ABG Oxyhemoglobin 93.4 L (94-98) ABG Potassium 3.1 L (3.40-4.50) mmol/L ABG Glucose 112 H (65-95) mg/dL POC Glucose 137 H (70-105) mg/dL Arterial Blood Glucose 112 H (65-95) mg/dL
--- NOTE | 2020-07-21 12:23 | Progress Note ---
Assessment and Plan Acute hypoxemic respiratory failure due to COVID-19 Severe COVID infection Severe Sepsis with shock Bilateral pneumonia Acute kidney injury (GIRISH) with acute tubular necrosis (ATN) Elevated liver enzymes Obesity - bariatric bed ordered - reduced FiO2 to 40% - keep peep at 10 for now re: bibasilar consolidation - repeat COVID-19 test - surgery consult for tracheostomy if COVID negative - continue to avoid supine position as much as possible - continue monotherapy with Zosyn - continue bid protonix - wean vasopressors for target MAP > 65 mmHg (levophed @ 4 mics/min) - continue to follow cultures - continue care as below otherwise; - continue daily SAT's & SBT's as tolerated - continue tube feeds at goal rate as tolerated - continue HD/UF per nephrology team for toxin and volume clearance - continue bowel regimen - Continue to wean supplemental oxygen for O2 sats >92% - Monitor blood pressure closely while optimizing sedation,wean vasopressor support for MAP > 65 mmHg - VAP bundle addressed, aspiration precautions HOB >40 - continue lung protective strategies, permissive hypercapnic acceptable. - continue bronchodilators with pulmonary hygiene per RT - wean per pulmonary driven protocols otherwise - accuchecks with glycemic control per SSI (While critically ill target blood glucose of 140-180 mg/dL; avoid hypoglycemia) - sedation prn for target RASS -1 to -2 - continue enteral nutritional support at goal rate as tolerated - s/p antibiotics per ID recommendations - Monitor liver function test ,avoid hepatotoxic agents - azotemia per nephrology rec's - Avoid nephrotoxins, renally dose all medications, conservative fluid management - continue to avoid benzodiazepines, reduce the possibility of delirium, - prn analgesia per CPOT score - Maintenance of sleep-wake cycle, avoid delirium - Stress ulcer prophylaxis, Famotidine - PT/OT/ROM exercises - Mobility protocols for pressure ulcer prevention - CXR, ABG in am - CBC, CMP in am - Supportive transfusions to keep HgB >7g/dL - Monitor hemodynamics closely - continue other care per attending / other consultants COVID SPECIFIC INTERVENTIONS - s/p steroids: Dexamethasone - completed Remdesivir - monitor inflammatory markers prn - ferritin, D-dimer, CRP, LDH per facility protocol - continue anticoagulation per System Protocol based on d-dimer (on hold due to bleeding) - continue contact and airborne isolation CONDITION: CRITICAL PROGNOSIS: GUARDED CODE STATUS: FULL CODE The high probability of a clinically significant, sudden or life-threatening deterioration of the [respiratory, cardiovascular, hematologic & neurologic] system(s) required my full and direct attention, intervention and personal management. The aggregate critical care time was [34] minutes without overlap. Time includes spent on; [x] Data Review and interpretation [x] Patient assessment and monitoring of vital signs [x] Documentation [x] Medication orders and management He was evaluated in the context of the global COVID-19 pandemic, which necessitated consideration that the patient might be at risk for infection with the virus that causes COVID-19. Institutional protocols and algorithms that pertain to the evaluation of patients at risk for COVID-19 are in a state of rapid change based on information released by regulatory bodies including the CDC and federal and state organizations. These policies and algorithms were followed during the patient's care in the ICU Please note that these policies, procedures and recommendations changed on a rapid basis. Subjective Date of service: 07/21/20 Principal diagnosis: ARF; Septic Shock; COVID-19 PNA; Atrial fibrillation; Obesity Interval history: Patient is seen today for: Ac hypoxemic respiratory failure; COVID-19; Severe Sepsis with shock; Zackery. pneumonia; GIRISH; Elevated liver enzymes; Obesity Seen and examined at bedside; 24hour events reviewed; nursing and respiratory care staff consulted; no adverse overnight events reported to me; resting in bed; remains on MVS; FiO2 improved; tolerating HD/UF; off vasopressors today; no emesis or overt aspiration and no gross bleeding Objective Vital Signs - 12hr 07/21/20 07/21/20 07/21/20 00:30 00:45 01:00 Temperature Pulse Rate 99 H 117 H 101 H Pulse Rate [ From Monitor] Respiratory 18 17 17 Rate Blood Pressure 88/55 88/55 104/54 O2 Sat by Pulse 100 100 100 Oximetry 07/21/20 07/21/20 07/21/20 01:15 01:30 01:45 Temperature Pulse Rate 74 74 84 Pulse Rate [ From Monitor] Respiratory 15 13 21 Rate Blood Pressure 93/46 116/52 138/79 O2 Sat by Pulse 100 100 99 Oximetry 07/21/20 07/21/20 07/21/20 02:00 02:15 02:30 Temperature Pulse Rate 90 88 93 H Pulse Rate [ From Monitor] Respiratory 17 13 12 Rate Blood Pressure 164/69 155/58 140/65 O2 Sat by Pulse 98 98 99 Oximetry 07/21/20 07/21/20 07/21/20 02:45 03:00 03:15 Temperature Pulse Rate 84 82 82 Pulse Rate [ From Monitor] Respiratory 18 19 12 Rate Blood Pressure 145/66 124/52 114/48 O2 Sat by Pulse 99 99 99 Oximetry 07/21/20 07/21/20 07/21/20 03:30 03:45 03:52 Temperature 97.1 F L Pulse Rate 80 78 Pulse Rate [ From Monitor] Respiratory 12 12 Rate Blood Pressure 104/43 113/49 O2 Sat by Pulse 100 100 Oximetry 07/21/20 07/21/20 07/21/20 04:00 04:15 04:31 Temperature Pulse Rate 75 73 87 Pulse Rate [ 75 From Monitor] Respiratory 11 L 13 9 L Rate Blood Pressure 109/50 114/49 140/82 O2 Sat by Pulse 100 100 93 Oximetry 07/21/20 07/21/20 07/21/20 04:45 05:01 05:15 Temperature Pulse Rate 82 93 H 82 Pulse Rate [ From Monitor] Respiratory 26 H 14 18 Rate Blood Pressure 157/66 151/64 138/60 O2 Sat by Pulse 97 98 97 Oximetry 07/21/20 07/21/20 07/21/20 05:28 05:30 05:45 Temperature Pulse Rate 81 82 82 Pulse Rate [ From Monitor] Respiratory 27 H 23 Rate Blood Pressure 150/57 144/60 150/61 O2 Sat by Pulse 98 98 99 Oximetry 07/21/20 07/21/20 07/21/20 06:00 06:15 06:30 Temperature Pulse Rate 81 82 84 Pulse Rate [ From Monitor] Respiratory 16 23 26 H Rate Blood Pressure 128/50 126/53 146/61 O2 Sat by Pulse 100 99 100 Oximetry 07/21/20 07/21/20 07/21/20 06:45 07:00 07:15 Temperature Pulse Rate 82 79 83 Pulse Rate [ From Monitor] Respiratory 21 27 H 28 H Rate Blood Pressure 149/59 145/63 135/62 O2 Sat by Pulse 100 100 99 Oximetry 07/21/20 07/21/20 07/21/20 07:30 07:45 08:00 Temperature 97.4 F L Pulse Rate 80 77 90 Pulse Rate [ 85 From Monitor] Respiratory 26 H 26 H 15 Rate Blood Pressure 129/57 138/64 144/71 O2 Sat by Pulse 100 100 100 Oximetry 07/21/20 07/21/20 07/21/20 08:15 08:30 08:43 Temperature Pulse Rate 83 82 77 Pulse Rate [ From Monitor] Respiratory 17 24 Rate Blood Pressure 143/63 145/65 144/84 O2 Sat by Pulse 100 99 99 Oximetry 07/21/20 07/21/20 07/21/20 08:45 09:00 09:15 Temperature Pulse Rate 86 75 80 Pulse Rate [ From Monitor] Respiratory 15 27 H 24 Rate Blood Pressure 144/84 125/50 118/51 O2 Sat by Pulse 99 100 100 Oximetry 07/21/20 07/21/20 07/21/20 09:30 09:45 10:00 Temperature Pulse Rate 86 78 77 Pulse Rate [ From Monitor] Respiratory 29 H 21 16 Rate Blood Pressure 131/70 114/51 O2 Sat by Pulse 98 99 98 Oximetry 07/21/20 07/21/20 07/21/20 10:15 10:30 10:45 Temperature Pulse Rate 75 78 74 Pulse Rate [ From Monitor] Respiratory 13 18 14 Rate Blood Pressure 114/44 121/52 117/48 O2 Sat by Pulse 99 99 99 Oximetry 07/21/20 07/21/20 07/21/20 11:00 11:15 11:30 Temperature Pulse Rate 77 82 78 Pulse Rate [ From Monitor] Respiratory 19 18 21 Rate Blood Pressure 107/44 125/47 132/61 O2 Sat by Pulse 100 98 99 Oximetry 07/21/20 07/21/20 07/21/20 11:43 11:45 12:00 Temperature 97.1 F L Pulse Rate 79 84 75 Pulse Rate [ 85 From Monitor] Respiratory 14 26 H Rate Blood Pressure 132/61 121/48 126/55 O2 Sat by Pulse 100 99 100 Oximetry Constitutional: appears uncomfortable, other (morbidly obese, atraumatic, normocephalic, mild resp distress, orally intubated) Eyes: non-icteric ENT: oropharynx dry, other (ETT 24 cm TROY ) Neck: supple, no lymphadenopathy, other (Large , short neck) Effort: mildly labored Ascultation: Bilateral: diminished breath sounds, rales Percussion: Bilateral: not dull Cardiovascular: irregular rhythm, other (S1,S2) Gastrointestinal: normoactive bowel sounds, soft, non-tender, non-distended (protuberant), other (lizeth-rectal tube slow oozing) Integumentary: rash, other (Femoral CVC, Newell catheter) Extremities: pink and warm, pulses normal, no ischemia or petechiae, edema (trace to 1+) Neurologic: non-focal exam (grossly), pupils equal and round, CN II-XII normal, other (unable to assess, sedated) Psychiatric: other (unable to assess, sedated) CBC and BMP: 07/21/20 05:02 07/19/20 09:15 ABG, PT/INR, D-dimer: ABG ABG pH 7.397 (7.320-7.450) 07/21/20 05:40 POC ABG pCO2 44.6 mmHg (32.0-48.0) 07/21/20 05:40 ABG pCO2 56.4 mm Hg 07/05/20 04:30 POC ABG pO2 73.2 mmHg (83-108) L 07/21/20 05:40 ABG pO2 151.9 mm Hg (80.0-90.0) H 07/05/20 04:30 POC ABG HCO3 26.8 07/21/20 05:40 ABG O2 Saturation 94.3 (0-100) 07/21/20 05:40 PT/INR, D-dimer PT 18.2 Sec. (12.2-14.9) H 07/17/20 15:25 INR 1.52 (0.87-1.13) H 07/17/20 15:25 D-Dimer 6608.00 ng/mlDDU (0-234) H 07/03/20 14:50 Abnormal lab findings: Abnormal Labs 06/17/20 06/17/20 06/17/20 12:33 12:33 12:33 WBC 19.5 H RBC 5.18 H Hgb 15.5 H Hct MCHC RDW Plt Count Lymph % (Auto) 3.8 L [place] % (Auto) Lymph # (Auto) 0.7 L [place] # (Auto) Eos # (Auto) Seg Neutrophils % Seg Neuts % (Manual) 99.0 H Lymphocytes % (Manual) 1.0 L Monocytes % (Manual) Nucleated RBC % Seg Neutrophils # 18.2 H Seg Neutrophils # Man 19.3 H Lymphocytes # (Manual) 0.2 L Monocytes # (Manual) Eosinophils # (Manual) PT 16.5 H INR 1.33 H APTT D-Dimer 1025.04 H Heparin Anti-Xa Level ABG pH POC ABG pCO2 POC ABG pO2 ABG pO2 ABG HCO3 ABG Hemoglobin ABG Oxyhemoglobin ABG Sodium ABG Potassium ABG Chloride ABG Glucose Carboxyhemoglobin Sodium 130 L Potassium 3.4 L Chloride 95.0 L Carbon Dioxide BUN 21 H Creatinine Glucose 137 H POC Glucose Lactic Acid Calcium 7.9 L Phosphorus Magnesium Ferritin Direct Bilirubin AST 84 H ALT 67 H Alkaline Phosphatase Lactate Dehydrogenase 437 H Total Creatine Kinase 310 H C-Reactive Protein 27.90 H Total Protein Albumin 2.9 L Triglycerides Arterial Blood Glucose Arterial Blood Ionized Calcium Urine Creatinine Urine Chloride Vancomycin Trough Coronavirus (PCR) Crossmatch 06/17/20 06/17/20 06/17/20 12:33 12:33 14:48 WBC RBC Hgb Hct MCHC RDW Plt Count Lymph % (Auto) [place] % (Auto) Lymph # (Auto) [place] # (Auto) Eos # (Auto) Seg Neutrophils % Seg Neuts % (Manual) Lymphocytes % (Manual) Monocytes % (Manual) Nucleated RBC % Seg Neutrophils # Seg Neutrophils # Man Lymphocytes # (Manual) Monocytes # (Manual) Eosinophils # (Manual) PT INR APTT D-Dimer Heparin Anti-Xa Level ABG pH POC ABG pCO2 POC ABG pO2 ABG pO2 ABG HCO3 ABG Hemoglobin ABG Oxyhemoglobin ABG Sodium ABG Potassium ABG Chloride ABG Glucose Carboxyhemoglobin Sodium Potassium Chloride Carbon Dioxide BUN Creatinine Glucose POC Glucose Lactic Acid 2.50 H* 2.20 H* Calcium Phosphorus Magnesium Ferritin 2297.0 H Direct Bilirubin AST ALT Alkaline Phosphatase Lactate Dehydrogenase Total Creatine Kinase C-Reactive Protein Total Protein Albumin Triglycerides Arterial Blood Glucose Arterial Blood Ionized Calcium Urine Creatinine Urine Chloride Vancomycin Trough Coronavirus (PCR) Crossmatch 06/17/20 06/17/20 06/17/20 14:48 14:48 14:48 WBC RBC Hgb Hct MCHC RDW Plt Count Lymph % (Auto) [place] % (Auto) Lymph # (Auto) [place] # (Auto) Eos # (Auto) Seg Neutrophils % Seg Neuts % (Manual) Lymphocytes % (Manual) Monocytes % (Manual) Nucleated RBC % Seg Neutrophils # Seg Neutrophils # Man Lymphocytes # (Manual) Monocytes # (Manual) Eosinophils # (Manual) PT INR APTT D-Dimer 939.89 H Heparin Anti-Xa Level ABG pH POC ABG pCO2 POC ABG pO2 ABG pO2 ABG HCO3 ABG Hemoglobin ABG Oxyhemoglobin ABG Sodium ABG Potassium ABG Chloride ABG Glucose Carboxyhemoglobin Sodium Potassium Chloride Carbon Dioxide BUN Creatinine Glucose 141 H POC Glucose Lactic Acid Calcium Phosphorus Magnesium Ferritin > 2000.0 H Direct Bilirubin AST ALT Alkaline Phosphatase Lactate Dehydrogenase 503 H Total Creatine Kinase C-Reactive Protein 24.70 H Total Protein Albumin Triglycerides Arterial Blood Glucose Arterial Blood Ionized Calcium Urine Creatinine Urine Chloride Vancomycin Trough Coronavirus (PCR) Crossmatch 06/17/20 06/17/20 06/17/20 16:54 19:39 23:43 WBC RBC Hgb Hct MCHC RDW Plt Count Lymph % (Auto) [place] % (Auto) Lymph # (Auto) [place] # (Auto) Eos # (Auto) Seg Neutrophils % Seg Neuts % (Manual) Lymphocytes % (Manual) Monocytes % (Manual) Nucleated RBC % Seg Neutrophils # Seg Neutrophils # Man Lymphocytes # (Manual) Monocytes # (Manual) Eosinophils # (Manual) PT INR APTT D-Dimer Heparin Anti-Xa Level ABG pH 7.571 H POC ABG pCO2 24.3 L POC ABG pO2 41.6 L ABG pO2 ABG HCO3 ABG Hemoglobin ABG Oxyhemoglobin 84.0 L ABG Sodium 131.0 L ABG Potassium ABG Chloride ABG Glucose 163 H Carboxyhemoglobin Sodium Potassium Chloride Carbon Dioxide BUN Creatinine Glucose POC Glucose 185 H Lactic Acid 2.10 H* Calcium Phosphorus Magnesium Ferritin Direct Bilirubin AST ALT Alkaline Phosphatase Lactate Dehydrogenase Total Creatine Kinase C-Reactive Protein Total Protein Albumin Triglycerides Arterial Blood Glucose 163 H Arterial Blood Ionized Calcium 4.4 L Urine Creatinine Urine Chloride Vancomycin Trough Coronavirus (PCR) Crossmatch 06/18/20 06/18/20 06/18/20 00:17 00:23 03:55 WBC RBC Hgb Hct MCHC RDW Plt Count Lymph % (Auto) [place] % (Auto) Lymph # (Auto) [place] # (Auto) Eos # (Auto) Seg Neutrophils % Seg Neuts % (Manual) Lymphocytes % (Manual) Monocytes % (Manual) Nucleated RBC % Seg Neutrophils # Seg Neutrophils # Man Lymphocytes # (Manual) Monocytes # (Manual) Eosinophils # (Manual) PT INR APTT D-Dimer Heparin Anti-Xa Level ABG pH POC ABG pCO2 POC ABG pO2 56.5 L 48.3 L ABG pO2 ABG HCO3 ABG Hemoglobin ABG Oxyhemoglobin 86.3 L 81.7 L ABG Sodium 132.9 L 131.0 L ABG Potassium ABG Chloride ABG Glucose 189 H 161 H Carboxyhemoglobin 0.4 L Sodium Potassium Chloride Carbon Dioxide BUN Creatinine Glucose POC Glucose Lactic Acid 3.80 H* Calcium Phosphorus Magnesium Ferritin Direct Bilirubin AST ALT Alkaline Phosphatase Lactate Dehydrogenase Total Creatine Kinase C-Reactive Protein Total Protein Albumin Triglycerides Arterial Blood Glucose 189 H 161 H Arterial Blood Ionized Calcium 4.3 L 4.2 L Urine Creatinine Urine Chloride Vancomycin Trough Coronavirus (PCR) Crossmatch 06/18/20 06/18/20 06/18/20 05:39 05:39 05:39 WBC 26.2 H RBC Hgb Hct MCHC RDW Plt Count Lymph % (Auto) [place] % (Auto) Lymph # (Auto) [place] # (Auto) Eos # (Auto) Seg Neutrophils % Seg Neuts % (Manual) 90.0 H Lymphocytes % (Manual) 5.0 L Monocytes % (Manual) Nucleated RBC % Seg Neutrophils # Seg Neutrophils # Man 23.6 H Lymphocytes # (Manual) Monocytes # (Manual) 1.3 H Eosinophils # (Manual) PT INR APTT D-Dimer Heparin Anti-Xa Level ABG pH POC ABG pCO2 POC ABG pO2 ABG pO2 ABG HCO3 ABG Hemoglobin ABG Oxyhemoglobin ABG Sodium ABG Potassium ABG Chloride ABG Glucose Carboxyhemoglobin Sodium 135 L Potassium Chloride 97.5 L Carbon Dioxide 21 L BUN 39 H Creatinine 1.7 H D Glucose 168 H POC Glucose Lactic Acid 3.40 H* Calcium 7.2 L Phosphorus Magnesium Ferritin Direct Bilirubin AST ALT Alkaline Phosphatase Lactate Dehydrogenase Total Creatine Kinase C-Reactive Protein Total Protein Albumin Triglycerides Arterial Blood Glucose Arterial Blood Ionized Calcium Urine Creatinine Urine Chloride Vancomycin Trough Coronavirus (PCR) Crossmatch 06/18/20 06/18/20 06/18/20 07:24 09:00 10:10 WBC RBC Hgb Hct MCHC RDW Plt Count Lymph % (Auto) [place] % (Auto) Lymph # (Auto) [place] # (Auto) Eos # (Auto) Seg Neutrophils % Seg Neuts % (Manual) Lymphocytes % (Manual) Monocytes % (Manual) Nucleated RBC % Seg Neutrophils # Seg Neutrophils # Man Lymphocytes # (Manual) Monocytes # (Manual) Eosinophils # (Manual) PT INR APTT D-Dimer Heparin Anti-Xa Level ABG pH POC ABG pCO2 POC ABG pO2 ABG pO2 ABG HCO3 ABG Hemoglobin ABG Oxyhemoglobin ABG Sodium ABG Potassium ABG Chloride ABG Glucose Carboxyhemoglobin Sodium Potassium Chloride Carbon Dioxide BUN Creatinine Glucose POC Glucose Lactic Acid 2.90 H* 3.20 H* Calcium Phosphorus Magnesium Ferritin Direct Bilirubin AST ALT Alkaline Phosphatase Lactate Dehydrogenase Total Creatine Kinase C-Reactive Protein Total Protein Albumin Triglycerides Arterial Blood Glucose Arterial Blood Ionized Calcium Urine Creatinine Urine Chloride Vancomycin Trough Coronavirus (PCR) Positive A Crossmatch 06/18/20 06/18/20 06/18/20 11:58 14:43 15:00 WBC RBC Hgb Hct MCHC RDW Plt Count Lymph % (Auto) [place] % (Auto) Lymph # (Auto) [place] # (Auto) Eos # (Auto) Seg Neutrophils % Seg Neuts % (Manual) Lymphocytes % (Manual) Monocytes % (Manual) Nucleated RBC % Seg Neutrophils # Seg Neutrophils # Man Lymphocytes # (Manual) Monocytes # (Manual) Eosinophils # (Manual) PT INR APTT D-Dimer Heparin Anti-Xa Level ABG pH 7.303 L POC ABG pCO2 POC ABG pO2 82.3 L ABG pO2 ABG HCO3 ABG Hemoglobin ABG Oxyhemoglobin ABG Sodium 135.3 L ABG Potassium ABG Chloride ABG Glucose 215 H Carboxyhemoglobin 0.3 L Sodium Potassium Chloride Carbon Dioxide BUN Creatinine Glucose POC Glucose 209 H Lactic Acid Calcium Phosphorus Magnesium Ferritin Direct Bilirubin AST ALT Alkaline Phosphatase Lactate Dehydrogenase Total Creatine Kinase C-Reactive Protein Total Protein Albumin Triglycerides Arterial Blood Glucose 215 H Arterial Blood Ionized Calcium 4.2 L Urine Creatinine 192.4 H Urine Chloride 31.1 L Vancomycin Trough Coronavirus (PCR) Crossmatch 06/18/20 06/18/20 06/18/20 17:16 19:44 20:33 WBC RBC Hgb Hct MCHC RDW Plt Count Lymph % (Auto) [place] % (Auto) Lymph # (Auto) [place] # (Auto) Eos # (Auto) Seg Neutrophils % Seg Neuts % (Manual) Lymphocytes % (Manual) Monocytes % (Manual) Nucleated RBC % Seg Neutrophils # Seg Neutrophils # Man Lymphocytes # (Manual) Monocytes # (Manual) Eosinophils # (Manual) PT INR APTT D-Dimer Heparin Anti-Xa Level ABG pH POC ABG pCO2 POC ABG pO2 ABG pO2 ABG HCO3 ABG Hemoglobin ABG Oxyhemoglobin ABG Sodium ABG Potassium ABG Chloride ABG Glucose Carboxyhemoglobin Sodium Potassium Chloride Carbon Dioxide BUN Creatinine Glucose POC Glucose 182 H Lactic Acid 3.00 H* Calcium Phosphorus Magnesium 2.70 H Ferritin Direct Bilirubin AST ALT Alkaline Phosphatase Lactate Dehydrogenase Total Creatine Kinase C-Reactive Protein Total Protein Albumin Triglycerides Arterial Blood Glucose Arterial Blood Ionized Calcium Urine Creatinine Urine Chloride Vancomycin Trough Coronavirus (PCR) Crossmatch 06/18/20 06/19/20 06/19/20 23:43 04:00 04:00 WBC 31.6 H RBC Hgb Hct MCHC RDW Plt Count Lymph % (Auto) [place] % (Auto) Lymph # (Auto) [place] # (Auto) Eos # (Auto) Seg Neutrophils % Seg Neuts % (Manual) 98.0 H Lymphocytes % (Manual) 0.5 L Monocytes % (Manual) Nucleated RBC % Seg Neutrophils # Seg Neutrophils # Man 31.0 H Lymphocytes # (Manual) 0.2 L Monocytes # (Manual) Eosinophils # (Manual) PT INR APTT D-Dimer Heparin Anti-Xa Level ABG pH POC ABG pCO2 POC ABG pO2 ABG pO2 ABG HCO3 ABG Hemoglobin ABG Oxyhemoglobin ABG Sodium ABG Potassium ABG Chloride ABG Glucose Carboxyhemoglobin Sodium Potassium Chloride Carbon Dioxide BUN 56 H Creatinine 1.6 H Glucose 176 H POC Glucose 149 H Lactic Acid Calcium 7.0 L Phosphorus Magnesium Ferritin Direct Bilirubin AST 244 H ALT 159 H Alkaline Phosphatase Lactate Dehydrogenase Total Creatine Kinase C-Reactive Protein Total Protein 4.9 L D Albumin 2.5 L Triglycerides Arterial Blood Glucose Arterial Blood Ionized Calcium Urine Creatinine Urine Chloride Vancomycin Trough Coronavirus (PCR) Crossmatch 06/19/20 06/19/20 06/19/20 04:00 05:44 11:42 WBC RBC Hgb Hct MCHC RDW Plt Count Lymph % (Auto) [place] % (Auto) Lymph # (Auto) [place] # (Auto) Eos # (Auto) Seg Neutrophils % Seg Neuts % (Manual) Lymphocytes % (Manual) Monocytes % (Manual) Nucleated RBC % Seg Neutrophils # Seg Neutrophils # Man Lymphocytes # (Manual) Monocytes # (Manual) Eosinophils # (Manual) PT INR APTT D-Dimer Heparin Anti-Xa Level ABG pH 7.265 L POC ABG pCO2 51.8 H POC ABG pO2 65.1 L ABG pO2 ABG HCO3 ABG Hemoglobin ABG Oxyhemoglobin ABG Sodium ABG Potassium ABG Chloride ABG Glucose 184 H Carboxyhemoglobin Sodium Potassium Chloride Carbon Dioxide BUN Creatinine Glucose POC Glucose 156 H 191 H Lactic Acid Calcium Phosphorus Magnesium Ferritin Direct Bilirubin AST ALT Alkaline Phosphatase Lactate Dehydrogenase Total Creatine Kinase C-Reactive Protein Total Protein Albumin Triglycerides Arterial Blood Glucose 184 H Arterial Blood Ionized Calcium 4.3 L Urine Creatinine Urine Chloride Vancomycin Trough Coronavirus (PCR) Crossmatch 06/19/20 06/19/20 06/19/20 12:30 17:16 18:36 WBC RBC Hgb Hct MCHC RDW Plt Count Lymph % (Auto) [place] % (Auto) Lymph # (Auto) [place] # (Auto) Eos # (Auto) Seg Neutrophils % Seg Neuts % (Manual) Lymphocytes % (Manual) Monocytes % (Manual) Nucleated RBC % Seg Neutrophils # Seg Neutrophils # Man Lymphocytes # (Manual) Monocytes # (Manual) Eosinophils # (Manual) PT 16.4 H INR 1.32 H APTT D-Dimer Heparin Anti-Xa Level ABG pH 7.088 L POC ABG pCO2 78.1 H POC ABG pO2 208.3 H ABG pO2 ABG HCO3 ABG Hemoglobin ABG Oxyhemoglobin 98.3 H ABG Sodium ABG Potassium 5.0 H ABG Chloride ABG Glucose 182 H Carboxyhemoglobin 0.4 L Sodium Potassium Chloride Carbon Dioxide BUN Creatinine Glucose POC Glucose 154 H Lactic Acid Calcium Phosphorus Magnesium Ferritin Direct Bilirubin AST ALT Alkaline Phosphatase Lactate Dehydrogenase Total Creatine Kinase C-Reactive Protein Total Protein Albumin Triglycerides Arterial Blood Glucose 182 H Arterial Blood Ionized Calcium 4.3 L Urine Creatinine Urine Chloride Vancomycin Trough Coronavirus (PCR) Crossmatch 06/19/20 06/20/20 06/20/20 23:32 03:00 05:19 WBC RBC Hgb Hct MCHC RDW Plt Count Lymph % (Auto) [place] % (Auto) Lymph # (Auto) [place] # (Auto) Eos # (Auto) Seg Neutrophils % Seg Neuts % (Manual) Lymphocytes % (Manual) Monocytes % (Manual) Nucleated RBC % Seg Neutrophils # Seg Neutrophils # Man Lymphocytes # (Manual) Monocytes # (Manual) Eosinophils # (Manual) PT INR APTT D-Dimer Heparin Anti-Xa Level 0.77 H ABG pH POC ABG pCO2 POC ABG pO2 ABG pO2 ABG HCO3 ABG Hemoglobin ABG Oxyhemoglobin ABG Sodium ABG Potassium ABG Chloride ABG Glucose Carboxyhemoglobin Sodium Potassium Chloride Carbon Dioxide BUN Creatinine Glucose POC Glucose 201 H 190 H Lactic Acid Calcium Phosphorus Magnesium Ferritin Direct Bilirubin AST ALT Alkaline Phosphatase Lactate Dehydrogenase Total Creatine Kinase C-Reactive Protein Total Protein Albumin Triglycerides Arterial Blood Glucose Arterial Blood Ionized Calcium Urine Creatinine Urine Chloride Vancomycin Trough Coronavirus (PCR) Crossmatch 06/20/20 06/20/20 06/20/20 08:25 08:25 11:36 WBC RBC Hgb Hct MCHC RDW Plt Count Lymph % (Auto) [place] % (Auto) Lymph # (Auto) [place] # (Auto) Eos # (Auto) Seg Neutrophils % Seg Neuts % (Manual) Lymphocytes % (Manual) Monocytes % (Manual) Nucleated RBC % Seg Neutrophils # Seg Neutrophils # Man Lymphocytes # (Manual) Monocytes # (Manual) Eosinophils # (Manual) PT INR APTT D-Dimer Heparin Anti-Xa Level ABG pH POC ABG pCO2 POC ABG pO2 ABG pO2 ABG HCO3 ABG Hemoglobin ABG Oxyhemoglobin ABG Sodium ABG Potassium ABG Chloride ABG Glucose Carboxyhemoglobin Sodium 135 L Potassium 5.4 H Chloride 109.2 H Carbon Dioxide 19 L BUN 68 H Creatinine 2.5 H D Glucose 201 H POC Glucose 184 H Lactic Acid Calcium 5.5 L* D Phosphorus Magnesium Ferritin Direct Bilirubin AST 123 H ALT 86 H Alkaline Phosphatase Lactate Dehydrogenase Total Creatine Kinase C-Reactive Protein Total Protein 4.6 L Albumin 1.5 L Triglycerides Arterial Blood Glucose Arterial Blood Ionized Calcium Urine Creatinine Urine Chloride Vancomycin Trough 22.7 H Coronavirus (PCR) Crossmatch 06/20/20 06/20/20 06/20/20 11:40 17:28 20:00 WBC RBC Hgb Hct MCHC RDW Plt Count Lymph % (Auto) [place] % (Auto) Lymph # (Auto) [place] # (Auto) Eos # (Auto) Seg Neutrophils % Seg Neuts % (Manual) Lymphocytes % (Manual) Monocytes % (Manual) Nucleated RBC % Seg Neutrophils # Seg Neutrophils # Man Lymphocytes # (Manual) Monocytes # (Manual) Eosinophils # (Manual) PT INR APTT D-Dimer Heparin Anti-Xa Level 0.89 H ABG pH 7.099 L POC ABG pCO2 61.1 H POC ABG pO2 ABG pO2 ABG HCO3 ABG Hemoglobin ABG Oxyhemoglobin ABG Sodium ABG Potassium 5.0 H ABG Chloride 111.0 H ABG Glucose 200 H Carboxyhemoglobin 0.4 L Sodium Potassium Chloride Carbon Dioxide BUN Creatinine Glucose POC Glucose 165 H Lactic Acid Calcium Phosphorus Magnesium Ferritin Direct Bilirubin AST ALT Alkaline Phosphatase Lactate Dehydrogenase Total Creatine Kinase C-Reactive Protein Total Protein Albumin Triglycerides Arterial Blood Glucose 200 H Arterial Blood Ionized Calcium 4.2 L Urine Creatinine Urine Chloride Vancomycin Trough Coronavirus (PCR) Crossmatch 06/20/20 06/21/20 06/21/20 23:29 05:00 05:20 WBC RBC Hgb Hct MCHC RDW Plt Count Lymph % (Auto) [place] % (Auto) Lymph # (Auto) [place] # (Auto) Eos # (Auto) Seg Neutrophils % Seg Neuts % (Manual) Lymphocytes % (Manual) Monocytes % (Manual) Nucleated RBC % Seg Neutrophils # Seg Neutrophils # Man Lymphocytes # (Manual) Monocytes # (Manual) Eosinophils # (Manual) PT INR APTT D-Dimer Heparin Anti-Xa Level ABG pH POC ABG pCO2 POC ABG pO2 ABG pO2 ABG HCO3 ABG Hemoglobin ABG Oxyhemoglobin ABG Sodium ABG Potassium ABG Chloride ABG Glucose Carboxyhemoglobin Sodium Potassium Chloride 112.0 H Carbon Dioxide 20 L BUN 92 H Creatinine 3.9 H D Glucose 214 H POC Glucose 145 H 191 H Lactic Acid Calcium 6.5 L D Phosphorus Magnesium Ferritin Direct Bilirubin AST 98 H ALT 84 H Alkaline Phosphatase Lactate Dehydrogenase Total Creatine Kinase C-Reactive Protein Total Protein 4.6 L Albumin 2.1 L Triglycerides 180 H Arterial Blood Glucose Arterial Blood Ionized Calcium Urine Creatinine Urine Chloride Vancomycin Trough Coronavirus (PCR) Crossmatch 06/21/20 06/21/20 06/21/20 08:56 11:12 12:43 WBC RBC Hgb Hct MCHC RDW Plt Count Lymph % (Auto) [place] % (Auto) Lymph # (Auto) [place] # (Auto) Eos # (Auto) Seg Neutrophils % Seg Neuts % (Manual) Lymphocytes % (Manual) Monocytes % (Manual) Nucleated RBC % Seg Neutrophils # Seg Neutrophils # Man Lymphocytes # (Manual) Monocytes # (Manual) Eosinophils # (Manual) PT INR APTT D-Dimer Heparin Anti-Xa Level 0.28 L ABG pH 7.184 L POC ABG pCO2 48.3 H POC ABG pO2 172.1 H ABG pO2 ABG HCO3 ABG Hemoglobin ABG Oxyhemoglobin 98.7 H ABG Sodium ABG Potassium 4.9 H ABG Chloride 112.0 H ABG Glucose 196 H Carboxyhemoglobin 0.2 L Sodium Potassium Chloride Carbon Dioxide BUN Creatinine Glucose POC Glucose 177 H Lactic Acid Calcium Phosphorus Magnesium Ferritin Direct Bilirubin AST ALT Alkaline Phosphatase Lactate Dehydrogenase Total Creatine Kinase C-Reactive Protein Total Protein Albumin Triglycerides Arterial Blood Glucose 196 H Arterial Blood Ionized Calcium 4.1 L Urine Creatinine Urine Chloride Vancomycin Trough Coronavirus (PCR) Crossmatch 06/21/20 06/21/20 06/22/20 16:31 Unknown 00:12 WBC RBC Hgb Hct MCHC RDW Plt Count Lymph % (Auto) [place] % (Auto) Lymph # (Auto) [place] # (Auto) Eos # (Auto) Seg Neutrophils % Seg Neuts % (Manual) Lymphocytes % (Manual) Monocytes % (Manual) Nucleated RBC % Seg Neutrophils # Seg Neutrophils # Man Lymphocytes # (Manual) Monocytes # (Manual) Eosinophils # (Manual) PT INR APTT D-Dimer Heparin Anti-Xa Level 0.78 H ABG pH POC ABG pCO2 POC ABG pO2 ABG pO2 ABG HCO3 ABG Hemoglobin ABG Oxyhemoglobin ABG Sodium ABG Potassium ABG Chloride ABG Glucose Carboxyhemoglobin Sodium Potassium Chloride Carbon Dioxide BUN Creatinine Glucose POC Glucose 150 H 173 H Lactic Acid Calcium Phosphorus Magnesium Ferritin Direct Bilirubin AST ALT Alkaline Phosphatase Lactate Dehydrogenase Total Creatine Kinase C-Reactive Protein Total Protein Albumin Triglycerides Arterial Blood Glucose Arterial Blood Ionized Calcium Urine Creatinine Urine Chloride Vancomycin Trough Coronavirus (PCR) Crossmatch 06/22/20 06/22/20 06/22/20 04:00 05:04 05:30 WBC 33.9 H RBC Hgb 11.7 L Hct 35.2 L MCHC RDW 15.8 H Plt Count Lymph % (Auto) [place] % (Auto) Lymph # (Auto) [place] # (Auto) Eos # (Auto) Seg Neutrophils % Seg Neuts % (Manual) 93.0 H Lymphocytes % (Manual) 5.0 L Monocytes % (Manual) Nucleated RBC % Seg Neutrophils # Seg Neutrophils # Man 31.5 H Lymphocytes # (Manual) Monocytes # (Manual) Eosinophils # (Manual) PT INR APTT D-Dimer Heparin Anti-Xa Level ABG pH 7.169 L POC ABG pCO2 POC ABG pO2 ABG pO2 ABG HCO3 ABG Hemoglobin ABG Oxyhemoglobin ABG Sodium ABG Potassium 5.1 H ABG Chloride 112.0 H ABG Glucose 186 H Carboxyhemoglobin 0.3 L Sodium Potassium Chloride Carbon Dioxide BUN Creatinine Glucose POC Glucose 161 H Lactic Acid Calcium Phosphorus Magnesium Ferritin Direct Bilirubin AST ALT Alkaline Phosphatase Lactate Dehydrogenase Total Creatine Kinase C-Reactive Protein Total Protein Albumin Triglycerides Arterial Blood Glucose 186 H Arterial Blood Ionized Calcium 4.1 L Urine Creatinine Urine Chloride Vancomycin Trough Coronavirus (PCR) Crossmatch 06/22/20 06/22/20 06/22/20 05:30 11:39 13:27 WBC RBC Hgb Hct MCHC RDW Plt Count Lymph % (Auto) [place] % (Auto) Lymph # (Auto) [place] # (Auto) Eos # (Auto) Seg Neutrophils % Seg Neuts % (Manual) Lymphocytes % (Manual) Monocytes % (Manual) Nucleated RBC % Seg Neutrophils # Seg Neutrophils # Man Lymphocytes # (Manual) Monocytes # (Manual) Eosinophils # (Manual) PT INR APTT D-Dimer Heparin Anti-Xa Level ABG pH POC ABG pCO2 POC ABG pO2 ABG pO2 ABG HCO3 ABG Hemoglobin ABG Oxyhemoglobin ABG Sodium ABG Potassium ABG Chloride ABG Glucose Carboxyhemoglobin Sodium Potassium 5.7 H Chloride 111.3 H Carbon Dioxide 18 L BUN 112 H Creatinine 5.0 H Glucose 173 H POC Glucose 172 H 176 H Lactic Acid Calcium 6.7 L Phosphorus Magnesium Ferritin Direct Bilirubin AST ALT Alkaline Phosphatase Lactate Dehydrogenase Total Creatine Kinase C-Reactive Protein Total Protein Albumin Triglycerides Arterial Blood Glucose Arterial Blood Ionized Calcium Urine Creatinine Urine Chloride Vancomycin Trough Coronavirus (PCR) Crossmatch 06/22/20 06/22/20 06/22/20 14:37 17:00 17:40 WBC RBC Hgb Hct MCHC RDW Plt Count Lymph % (Auto) [place] % (Auto) Lymph # (Auto) [place] # (Auto) Eos # (Auto) Seg Neutrophils % Seg Neuts % (Manual) Lymphocytes % (Manual) Monocytes % (Manual) Nucleated RBC % Seg Neutrophils # Seg Neutrophils # Man Lymphocytes # (Manual) Monocytes # (Manual) Eosinophils # (Manual) PT INR APTT D-Dimer Heparin Anti-Xa Level 1.32 H ABG pH POC ABG pCO2 POC ABG pO2 ABG pO2 ABG HCO3 ABG Hemoglobin ABG Oxyhemoglobin ABG Sodium ABG Potassium ABG Chloride ABG Glucose Carboxyhemoglobin Sodium Potassium Chloride Carbon Dioxide BUN Creatinine Glucose POC Glucose 171 H Lactic Acid Calcium Phosphorus Magnesium Ferritin Direct Bilirubin AST ALT Alkaline Phosphatase Lactate Dehydrogenase Total Creatine Kinase C-Reactive Protein 5.30 H Total Protein Albumin Triglycerides Arterial Blood Glucose Arterial Blood Ionized Calcium Urine Creatinine Urine Chloride Vancomycin Trough Coronavirus (PCR) Crossmatch 06/22/20 06/23/20 06/23/20 23:36 02:13 02:41 WBC RBC Hgb Hct MCHC RDW Plt Count Lymph % (Auto) [place] % (Auto) Lymph # (Auto) [place] # (Auto) Eos # (Auto) Seg Neutrophils % Seg Neuts % (Manual) Lymphocytes % (Manual) Monocytes % (Manual) Nucleated RBC % Seg Neutrophils # Seg Neutrophils # Man Lymphocytes # (Manual) Monocytes # (Manual) Eosinophils # (Manual) PT INR APTT D-Dimer Heparin Anti-Xa Level 0.21 L ABG pH 7.318 L POC ABG pCO2 POC ABG pO2 157.5 H ABG pO2 ABG HCO3 ABG Hemoglobin ABG Oxyhemoglobin ABG Sodium 135.6 L ABG Potassium 4.6 H ABG Chloride 110.0 H ABG Glucose 169 H Carboxyhemoglobin Sodium Potassium Chloride Carbon Dioxide BUN Creatinine Glucose POC Glucose 155 H Lactic Acid Calcium Phosphorus Magnesium Ferritin Direct Bilirubin AST ALT Alkaline Phosphatase Lactate Dehydrogenase Total Creatine Kinase C-Reactive Protein Total Protein Albumin Triglycerides Arterial Blood Glucose 169 H Arterial Blood Ionized Calcium Urine Creatinine Urine Chloride Vancomycin Trough Coronavirus (PCR) Crossmatch 06/23/20 06/23/20 06/23/20 04:00 04:00 05:24 WBC 27.4 H RBC Hgb 11.3 L Hct 33.8 L MCHC RDW Plt Count Lymph % (Auto) [place] % (Auto) Lymph # (Auto) [place] # (Auto) Eos # (Auto) Seg Neutrophils % Seg Neuts % (Manual) 93.0 H Lymphocytes % (Manual) 1.0 L Monocytes % (Manual) Nucleated RBC % 1.0 H Seg Neutrophils # Seg Neutrophils # Man 25.5 H Lymphocytes # (Manual) 0.3 L Monocytes # (Manual) 1.1 H Eosinophils # (Manual) PT INR APTT D-Dimer Heparin Anti-Xa Level ABG pH POC ABG pCO2 POC ABG pO2 ABG pO2 ABG HCO3 ABG Hemoglobin ABG Oxyhemoglobin ABG Sodium ABG Potassium ABG Chloride ABG Glucose Carboxyhemoglobin Sodium Potassium Chloride 107.6 H Carbon Dioxide 20 L BUN 100 H Creatinine 4.7 H Glucose 168 H POC Glucose 151 H Lactic Acid Calcium Phosphorus Magnesium Ferritin Direct Bilirubin AST ALT Alkaline Phosphatase Lactate Dehydrogenase Total Creatine Kinase C-Reactive Protein Total Protein Albumin Triglycerides Arterial Blood Glucose Arterial Blood Ionized Calcium Urine Creatinine Urine Chloride Vancomycin Trough Coronavirus (PCR) Crossmatch 06/23/20 06/23/20 06/23/20 11:30 17:18 23:50 WBC RBC Hgb Hct MCHC RDW Plt Count Lymph % (Auto) [place] % (Auto) Lymph # (Auto) [place] # (Auto) Eos # (Auto) Seg Neutrophils % Seg Neuts % (Manual) Lymphocytes % (Manual) Monocytes % (Manual) Nucleated RBC % Seg Neutrophils # Seg Neutrophils # Man Lymphocytes # (Manual) Monocytes # (Manual) Eosinophils # (Manual) PT INR APTT D-Dimer Heparin Anti-Xa Level ABG pH POC ABG pCO2 POC ABG pO2 ABG pO2 ABG HCO3 ABG Hemoglobin ABG Oxyhemoglobin ABG Sodium ABG Potassium ABG Chloride ABG Glucose Carboxyhemoglobin Sodium Potassium Chloride Carbon Dioxide BUN Creatinine Glucose POC Glucose 157 H 156 H 162 H Lactic Acid Calcium Phosphorus Magnesium Ferritin Direct Bilirubin AST ALT Alkaline Phosphatase Lactate Dehydrogenase Total Creatine Kinase C-Reactive Protein Total Protein Albumin Triglycerides Arterial Blood Glucose Arterial Blood Ionized Calcium Urine Creatinine Urine Chloride Vancomycin Trough Coronavirus (PCR) Crossmatch 06/24/20 06/24/20 06/24/20 04:41 05:57 06:30 WBC 34.3 H RBC Hgb 10.9 L Hct 32.6 L MCHC RDW Plt Count Lymph % (Auto) 2.0 L [place] % (Auto) Lymph # (Auto) 0.7 L [place] # (Auto) 1.2 H Eos # (Auto) Seg Neutrophils % Seg Neuts % (Manual) 96.0 H Lymphocytes % (Manual) 3.0 L Monocytes % (Manual) Nucleated RBC % Seg Neutrophils # 32.3 H Seg Neutrophils # Man 32.9 H Lymphocytes # (Manual) 1.0 L Monocytes # (Manual) Eosinophils # (Manual) PT INR APTT D-Dimer Heparin Anti-Xa Level ABG pH POC ABG pCO2 POC ABG pO2 71.1 L ABG pO2 ABG HCO3 ABG Hemoglobin ABG Oxyhemoglobin 92.4 L ABG Sodium 115.6 L ABG Potassium ABG Chloride ABG Glucose 159 H Carboxyhemoglobin Sodium Potassium Chloride Carbon Dioxide BUN Creatinine Glucose POC Glucose 143 H Lactic Acid Calcium Phosphorus Magnesium Ferritin Direct Bilirubin AST ALT Alkaline Phosphatase Lactate Dehydrogenase Total Creatine Kinase C-Reactive Protein Total Protein Albumin Triglycerides Arterial Blood Glucose 159 H Arterial Blood Ionized Calcium 4.2 L Urine Creatinine Urine Chloride Vancomycin Trough Coronavirus (PCR) Crossmatch 06/24/20 06/24/20 06/24/20 07:03 09:37 11:56 WBC RBC Hgb Hct MCHC RDW Plt Count Lymph % (Auto) [place] % (Auto) Lymph # (Auto) [place] # (Auto) Eos # (Auto) Seg Neutrophils % Seg Neuts % (Manual) Lymphocytes % (Manual) Monocytes % (Manual) Nucleated RBC % Seg Neutrophils # Seg Neutrophils # Man Lymphocytes # (Manual) Monocytes # (Manual) Eosinophils # (Manual) PT INR APTT D-Dimer Heparin Anti-Xa Level 0.26 L ABG pH POC ABG pCO2 POC ABG pO2 ABG pO2 ABG HCO3 ABG Hemoglobin ABG Oxyhemoglobin ABG Sodium ABG Potassium ABG Chloride ABG Glucose Carboxyhemoglobin Sodium Potassium 5.1 H Chloride Carbon Dioxide BUN 103 H Creatinine 5.0 H Glucose 163 H POC Glucose 149 H Lactic Acid Calcium 7.6 L Phosphorus Magnesium Ferritin Direct Bilirubin AST ALT Alkaline Phosphatase Lactate Dehydrogenase Total Creatine Kinase C-Reactive Protein Total Protein Albumin Triglycerides Arterial Blood Glucose Arterial Blood Ionized Calcium Urine Creatinine Urine Chloride Vancomycin Trough Coronavirus (PCR) Crossmatch 06/24/20 06/25/20 06/25/20 18:09 01:05 03:00 WBC RBC Hgb 10.6 L Hct 32.1 L MCHC RDW Plt Count Lymph % (Auto) [place] % (Auto) Lymph # (Auto) [place] # (Auto) Eos # (Auto) Seg Neutrophils % Seg Neuts % (Manual) Lymphocytes % (Manual) Monocytes % (Manual) Nucleated RBC % Seg Neutrophils # Seg Neutrophils # Man Lymphocytes # (Manual) Monocytes # (Manual) Eosinophils # (Manual) PT INR APTT D-Dimer Heparin Anti-Xa Level ABG pH POC ABG pCO2 POC ABG pO2 ABG pO2 ABG HCO3 ABG Hemoglobin ABG Oxyhemoglobin ABG Sodium ABG Potassium ABG Chloride ABG Glucose Carboxyhemoglobin Sodium Potassium Chloride Carbon Dioxide BUN Creatinine Glucose POC Glucose 141 H 137 H Lactic Acid Calcium Phosphorus Magnesium Ferritin Direct Bilirubin AST ALT Alkaline Phosphatase Lactate Dehydrogenase Total Creatine Kinase C-Reactive Protein Total Protein Albumin Triglycerides Arterial Blood Glucose Arterial Blood Ionized Calcium Urine Creatinine Urine Chloride Vancomycin Trough Coronavirus (PCR) Crossmatch 06/25/20 06/25/20 06/25/20 03:48 05:17 12:08 WBC RBC Hgb Hct MCHC RDW Plt Count Lymph % (Auto) [place] % (Auto) Lymph # (Auto) [place] # (Auto) Eos # (Auto) Seg Neutrophils % Seg Neuts % (Manual) Lymphocytes % (Manual) Monocytes % (Manual) Nucleated RBC % Seg Neutrophils # Seg Neutrophils # Man Lymphocytes # (Manual) Monocytes # (Manual) Eosinophils # (Manual) PT INR APTT D-Dimer Heparin Anti-Xa Level ABG pH POC ABG pCO2 29.4 L POC ABG pO2 67.1 L ABG pO2 ABG HCO3 ABG Hemoglobin 11.5 L ABG Oxyhemoglobin ABG Sodium 124.1 L ABG Potassium 4.6 H ABG Chloride ABG Glucose 159 H Carboxyhemoglobin Sodium Potassium Chloride Carbon Dioxide BUN Creatinine Glucose POC Glucose 149 H 150 H Lactic Acid Calcium Phosphorus Magnesium Ferritin Direct Bilirubin AST ALT Alkaline Phosphatase Lactate Dehydrogenase Total Creatine Kinase C-Reactive Protein Total Protein Albumin Triglycerides Arterial Blood Glucose 159 H Arterial Blood Ionized Calcium 4.2 L Urine Creatinine Urine Chloride Vancomycin Trough Coronavirus (PCR) Crossmatch 06/25/20 06/25/20 06/25/20 16:27 16:35 17:27 WBC RBC Hgb Hct MCHC RDW Plt Count Lymph % (Auto) [place] % (Auto) Lymph # (Auto) [place] # (Auto) Eos # (Auto) Seg Neutrophils % Seg Neuts % (Manual) Lymphocytes % (Manual) Monocytes % (Manual) Nucleated RBC % Seg Neutrophils # Seg Neutrophils # Man Lymphocytes # (Manual) Monocytes # (Manual) Eosinophils # (Manual) PT INR APTT D-Dimer Heparin Anti-Xa Level < 0.10 L ABG pH POC ABG pCO2 POC ABG pO2 ABG pO2 ABG HCO3 ABG Hemoglobin ABG Oxyhemoglobin ABG Sodium ABG Potassium ABG Chloride ABG Glucose Carboxyhemoglobin Sodium Potassium Chloride Carbon Dioxide BUN Creatinine Glucose POC Glucose 143 H 156 H Lactic Acid Calcium Phosphorus Magnesium Ferritin Direct Bilirubin AST ALT Alkaline Phosphatase Lactate Dehydrogenase Total Creatine Kinase C-Reactive Protein Total Protein Albumin Triglycerides Arterial Blood Glucose Arterial Blood Ionized Calcium Urine Creatinine Urine Chloride Vancomycin Trough Coronavirus (PCR) Crossmatch 06/25/20 06/25/20 06/25/20 20:00 20:55 23:10 WBC 32.7 H RBC 3.06 L Hgb 9.0 L 9.5 L Hct 26.7 L 28.6 L MCHC RDW Plt Count Lymph % (Auto) [place] % (Auto) Lymph # (Auto) [place] # (Auto) Eos # (Auto) Seg Neutrophils % Seg Neuts % (Manual) Lymphocytes % (Manual) 2.0 L Monocytes % (Manual) Nucleated RBC % Seg Neutrophils # Seg Neutrophils # Man 30.7 H Lymphocytes # (Manual) 0.7 L Monocytes # (Manual) 1.3 H Eosinophils # (Manual) PT 17.7 H INR 1.47 H APTT 65.8 H* D-Dimer Heparin Anti-Xa Level ABG pH POC ABG pCO2 POC ABG pO2 ABG pO2 ABG HCO3 ABG Hemoglobin ABG Oxyhemoglobin ABG Sodium ABG Potassium ABG Chloride ABG Glucose Carboxyhemoglobin Sodium Potassium Chloride Carbon Dioxide BUN Creatinine Glucose POC Glucose Lactic Acid Calcium Phosphorus Magnesium Ferritin Direct Bilirubin AST ALT Alkaline Phosphatase Lactate Dehydrogenase Total Creatine Kinase C-Reactive Protein Total Protein Albumin Triglycerides Arterial Blood Glucose Arterial Blood Ionized Calcium Urine Creatinine Urine Chloride Vancomycin Trough Coronavirus (PCR) Crossmatch 06/25/20 06/26/20 06/26/20 23:14 01:30 03:25 WBC RBC Hgb Hct MCHC RDW Plt Count Lymph % (Auto) [place] % (Auto) Lymph # (Auto) [place] # (Auto) Eos # (Auto) Seg Neutrophils % Seg Neuts % (Manual) Lymphocytes % (Manual) Monocytes % (Manual) Nucleated RBC % Seg Neutrophils # Seg Neutrophils # Man Lymphocytes # (Manual) Monocytes # (Manual) Eosinophils # (Manual) PT INR APTT D-Dimer Heparin Anti-Xa Level < 0.10 L ABG pH POC ABG pCO2 POC ABG pO2 ABG pO2 ABG HCO3 ABG Hemoglobin 11.8 L ABG Oxyhemoglobin ABG Sodium 127.1 L ABG Potassium 5.4 H ABG Chloride ABG Glucose 155 H Carboxyhemoglobin 0.3 L Sodium Potassium Chloride Carbon Dioxide BUN Creatinine Glucose POC Glucose 148 H Lactic Acid Calcium Phosphorus Magnesium Ferritin Direct Bilirubin AST ALT Alkaline Phosphatase Lactate Dehydrogenase Total Creatine Kinase C-Reactive Protein Total Protein Albumin Triglycerides Arterial Blood Glucose 155 H Arterial Blood Ionized Calcium 4.2 L Urine Creatinine Urine Chloride Vancomycin Trough Coronavirus (PCR) Crossmatch 06/26/20 06/26/20 06/26/20 03:59 05:14 05:47 WBC 36.5 H RBC 3.26 L Hgb 9.7 L Hct 28.2 L MCHC RDW Plt Count Lymph % (Auto) [place] % (Auto) Lymph # (Auto) [place] # (Auto) Eos # (Auto) Seg Neutrophils % Seg Neuts % (Manual) 92.0 H Lymphocytes % (Manual) 4.0 L Monocytes % (Manual) Nucleated RBC % Seg Neutrophils # Seg Neutrophils # Man 33.6 H Lymphocytes # (Manual) Monocytes # (Manual) Eosinophils # (Manual) PT INR APTT D-Dimer Heparin Anti-Xa Level ABG pH POC ABG pCO2 POC ABG pO2 ABG pO2 ABG HCO3 ABG Hemoglobin ABG Oxyhemoglobin ABG Sodium ABG Potassium ABG Chloride ABG Glucose Carboxyhemoglobin Sodium Potassium 5.9 H Chloride Carbon Dioxide 20 L BUN 144 H Creatinine 6.4 H Glucose 149 H POC Glucose 128 H Lactic Acid Calcium 7.6 L Phosphorus Magnesium Ferritin Direct Bilirubin AST ALT Alkaline Phosphatase Lactate Dehydrogenase Total Creatine Kinase C-Reactive Protein Total Protein Albumin Triglycerides Arterial Blood Glucose Arterial Blood Ionized Calcium Urine Creatinine Urine Chloride Vancomycin Trough Coronavirus (PCR) Crossmatch 06/26/20 06/26/20 06/26/20 05:47 12:47 17:42 WBC RBC Hgb Hct MCHC RDW Plt Count Lymph % (Auto) [place] % (Auto) Lymph # (Auto) [place] # (Auto) Eos # (Auto) Seg Neutrophils % Seg Neuts % (Manual) Lymphocytes % (Manual) Monocytes % (Manual) Nucleated RBC % Seg Neutrophils # Seg Neutrophils # Man Lymphocytes # (Manual) Monocytes # (Manual) Eosinophils # (Manual) PT 17.4 H INR 1.44 H APTT D-Dimer Heparin Anti-Xa Level ABG pH POC ABG pCO2 POC ABG pO2 ABG pO2 ABG HCO3 ABG Hemoglobin ABG Oxyhemoglobin ABG Sodium ABG Potassium ABG Chloride ABG Glucose Carboxyhemoglobin Sodium Potassium Chloride Carbon Dioxide BUN Creatinine Glucose POC Glucose 124 H 127 H Lactic Acid Calcium Phosphorus Magnesium Ferritin Direct Bilirubin AST ALT Alkaline Phosphatase Lactate Dehydrogenase Total Creatine Kinase C-Reactive Protein Total Protein Albumin Triglycerides Arterial Blood Glucose Arterial Blood Ionized Calcium Urine Creatinine Urine Chloride Vancomycin Trough Coronavirus (PCR) Crossmatch 06/26/20 06/27/20 06/27/20 23:30 03:32 04:00 WBC RBC Hgb 8.7 L Hct 26.4 L MCHC RDW Plt Count Lymph % (Auto) [place] % (Auto) Lymph # (Auto) [place] # (Auto) Eos # (Auto) Seg Neutrophils % Seg Neuts % (Manual) Lymphocytes % (Manual) Monocytes % (Manual) Nucleated RBC % Seg Neutrophils # Seg Neutrophils # Man Lymphocytes # (Manual) Monocytes # (Manual) Eosinophils # (Manual) PT INR APTT D-Dimer Heparin Anti-Xa Level ABG pH 7.298 L POC ABG pCO2 POC ABG pO2 ABG pO2 ABG HCO3 ABG Hemoglobin 9.6 L ABG Oxyhemoglobin ABG Sodium 124.4 L ABG Potassium 6.6 H ABG Chloride ABG Glucose 136 H Carboxyhemoglobin Sodium Potassium Chloride Carbon Dioxide BUN Creatinine Glucose POC Glucose 123 H Lactic Acid Calcium Phosphorus Magnesium Ferritin Direct Bilirubin AST ALT Alkaline Phosphatase Lactate Dehydrogenase Total Creatine Kinase C-Reactive Protein Total Protein Albumin Triglycerides Arterial Blood Glucose 136 H Arterial Blood Ionized Calcium 4.1 L Urine Creatinine Urine Chloride Vancomycin Trough Coronavirus (PCR) Crossmatch 06/27/20 06/27/20 06/27/20 05:26 10:14 11:58 WBC RBC Hgb Hct MCHC RDW Plt Count Lymph % (Auto) [place] % (Auto) Lymph # (Auto) [place] # (Auto) Eos # (Auto) Seg Neutrophils % Seg Neuts % (Manual) Lymphocytes % (Manual) Monocytes % (Manual) Nucleated RBC % Seg Neutrophils # Seg Neutrophils # Man Lymphocytes # (Manual) Monocytes # (Manual) Eosinophils # (Manual) PT INR APTT D-Dimer Heparin Anti-Xa Level ABG pH POC ABG pCO2 POC ABG pO2 ABG pO2 ABG HCO3 ABG Hemoglobin ABG Oxyhemoglobin ABG Sodium ABG Potassium ABG Chloride ABG Glucose Carboxyhemoglobin Sodium 136 L Potassium 7.0 H* Chloride 97.8 L Carbon Dioxide BUN 172 H Creatinine 7.4 H Glucose 129 H POC Glucose 124 H 115 H Lactic Acid Calcium 7.6 L Phosphorus Magnesium Ferritin Direct Bilirubin AST ALT Alkaline Phosphatase Lactate Dehydrogenase Total Creatine Kinase C-Reactive Protein Total Protein Albumin Triglycerides Arterial Blood Glucose Arterial Blood Ionized Calcium Urine Creatinine Urine Chloride Vancomycin Trough Coronavirus (PCR) Crossmatch 06/27/20 06/27/20 06/27/20 17:32 18:30 23:24 WBC RBC Hgb Hct MCHC RDW Plt Count Lymph % (Auto) [place] % (Auto) Lymph # (Auto) [place] # (Auto) Eos # (Auto) Seg Neutrophils % Seg Neuts % (Manual) Lymphocytes % (Manual) Monocytes % (Manual) Nucleated RBC % Seg Neutrophils # Seg Neutrophils # Man Lymphocytes # (Manual) Monocytes # (Manual) Eosinophils # (Manual) PT INR APTT D-Dimer Heparin Anti-Xa Level ABG pH POC ABG pCO2 POC ABG pO2 ABG pO2 ABG HCO3 ABG Hemoglobin ABG Oxyhemoglobin ABG Sodium ABG Potassium ABG Chloride ABG Glucose Carboxyhemoglobin Sodium Potassium 7.3 H* Chloride Carbon Dioxide BUN Creatinine Glucose POC Glucose 122 H 116 H Lactic Acid Calcium Phosphorus Magnesium Ferritin Direct Bilirubin AST ALT Alkaline Phosphatase Lactate Dehydrogenase Total Creatine Kinase C-Reactive Protein Total Protein Albumin Triglycerides Arterial Blood Glucose Arterial Blood Ionized Calcium Urine Creatinine Urine Chloride Vancomycin Trough Coronavirus (PCR) Crossmatch 06/28/20 06/28/20 06/28/20 00:00 02:16 05:37 WBC RBC Hgb Hct MCHC RDW Plt Count Lymph % (Auto) [place] % (Auto) Lymph # (Auto) [place] # (Auto) Eos # (Auto) Seg Neutrophils % Seg Neuts % (Manual) Lymphocytes % (Manual) Monocytes % (Manual) Nucleated RBC % Seg Neutrophils # Seg Neutrophils # Man Lymphocytes # (Manual) Monocytes # (Manual) Eosinophils # (Manual) PT INR APTT D-Dimer Heparin Anti-Xa Level ABG pH POC ABG pCO2 POC ABG pO2 79.0 L ABG pO2 ABG HCO3 ABG Hemoglobin 11.7 L ABG Oxyhemoglobin ABG Sodium 128.1 L ABG Potassium 6.6 H ABG Chloride ABG Glucose 124 H Carboxyhemoglobin Sodium Potassium 7.3 H* Chloride Carbon Dioxide BUN Creatinine Glucose POC Glucose 115 H Lactic Acid Calcium Phosphorus Magnesium Ferritin Direct Bilirubin AST ALT Alkaline Phosphatase Lactate Dehydrogenase Total Creatine Kinase C-Reactive Protein Total Protein Albumin Triglycerides Arterial Blood Glucose 124 H Arterial Blood Ionized Calcium 4.2 L Urine Creatinine Urine Chloride Vancomycin Trough Coronavirus (PCR) Crossmatch 06/28/20 06/28/20 06/28/20 10:03 10:03 11:51 WBC 33.6 H RBC 3.03 L Hgb 8.9 L Hct 27.0 L MCHC RDW Plt Count Lymph % (Auto) [place] % (Auto) Lymph # (Auto) [place] # (Auto) Eos # (Auto) Seg Neutrophils % Seg Neuts % (Manual) Lymphocytes % (Manual) Monocytes % (Manual) Nucleated RBC % Seg Neutrophils # Seg Neutrophils # Man Lymphocytes # (Manual) Monocytes # (Manual) Eosinophils # (Manual) PT INR APTT D-Dimer Heparin Anti-Xa Level ABG pH POC ABG pCO2 POC ABG pO2 ABG pO2 ABG HCO3 ABG Hemoglobin ABG Oxyhemoglobin ABG Sodium ABG Potassium ABG Chloride ABG Glucose Carboxyhemoglobin Sodium 136 L Potassium 6.5 H* Chloride Carbon Dioxide 20 L BUN 129 H Creatinine 5.8 H Glucose 113 H POC Glucose 107 H Lactic Acid Calcium 7.6 L Phosphorus Magnesium Ferritin Direct Bilirubin AST ALT Alkaline Phosphatase Lactate Dehydrogenase Total Creatine Kinase C-Reactive Protein Total Protein Albumin Triglycerides Arterial Blood Glucose Arterial Blood Ionized Calcium Urine Creatinine Urine Chloride Vancomycin Trough Coronavirus (PCR) Crossmatch 06/28/20 06/28/20 06/29/20 17:45 Unknown 03:15 WBC RBC Hgb Hct MCHC RDW Plt Count Lymph % (Auto) [place] % (Auto) Lymph # (Auto) [place] # (Auto) Eos # (Auto) Seg Neutrophils % Seg Neuts % (Manual) Lymphocytes % (Manual) Monocytes % (Manual) Nucleated RBC % Seg Neutrophils # Seg Neutrophils # Man Lymphocytes # (Manual) Monocytes # (Manual) Eosinophils # (Manual) PT INR APTT D-Dimer Heparin Anti-Xa Level ABG pH POC ABG pCO2 POC ABG pO2 ABG pO2 ABG HCO3 ABG Hemoglobin 7.8 L ABG Oxyhemoglobin ABG Sodium 127.4 L ABG Potassium 5.5 H ABG Chloride 97.0 L ABG Glucose 96 H Carboxyhemoglobin Sodium Potassium 5.4 H Chloride Carbon Dioxide BUN Creatinine Glucose POC Glucose 117 H Lactic Acid Calcium Phosphorus Magnesium Ferritin Direct Bilirubin AST ALT Alkaline Phosphatase Lactate Dehydrogenase Total Creatine Kinase C-Reactive Protein Total Protein Albumin Triglycerides Arterial Blood Glucose 96 H Arterial Blood Ionized Calcium 4.0 L Urine Creatinine Urine Chloride Vancomycin Trough Coronavirus (PCR) Crossmatch 06/29/20 06/29/20 06/29/20 03:45 Unknown Unknown WBC RBC Hgb Hct MCHC RDW Plt Count Lymph % (Auto) [place] % (Auto) Lymph # (Auto) [place] # (Auto) Eos # (Auto) Seg Neutrophils % Seg Neuts % (Manual) Lymphocytes % (Manual) Monocytes % (Manual) Nucleated RBC % Seg Neutrophils # Seg Neutrophils # Man Lymphocytes # (Manual) Monocytes # (Manual) Eosinophils # (Manual) PT INR APTT D-Dimer Heparin Anti-Xa Level ABG pH POC ABG pCO2 POC ABG pO2 ABG pO2 ABG HCO3 ABG Hemoglobin ABG Oxyhemoglobin ABG Sodium ABG Potassium ABG Chloride ABG Glucose Carboxyhemoglobin Sodium 135 L Potassium 6.0 H 6.1 H* Chloride 94.8 L Carbon Dioxide BUN 109 H 114 H Creatinine 5.5 H Glucose POC Glucose Lactic Acid Calcium 7.4 L Phosphorus Magnesium Ferritin Direct Bilirubin AST 47 H ALT Alkaline Phosphatase Lactate Dehydrogenase Total Creatine Kinase C-Reactive Protein Total Protein 4.9 L Albumin 2.2 L Triglycerides Arterial Blood Glucose Arterial Blood Ionized Calcium Urine Creatinine Urine Chloride Vancomycin Trough Coronavirus (PCR) Crossmatch 06/29/20 06/29/20 06/30/20 Unknown Unknown 03:32 WBC 20.7 H RBC 2.57 L Hgb 7.6 L Hct 23.0 L MCHC RDW Plt Count Lymph % (Auto) [place] % (Auto) Lymph # (Auto) [place] # (Auto) Eos # (Auto) Seg Neutrophils % Seg Neuts % (Manual) Lymphocytes % (Manual) Monocytes % (Manual) Nucleated RBC % Seg Neutrophils # Seg Neutrophils # Man Lymphocytes # (Manual) Monocytes # (Manual) Eosinophils # (Manual) PT INR APTT D-Dimer Heparin Anti-Xa Level ABG pH POC ABG pCO2 POC ABG pO2 ABG pO2 ABG HCO3 ABG Hemoglobin 11.4 L ABG Oxyhemoglobin ABG Sodium 130.1 L ABG Potassium 5.0 H ABG Chloride ABG Glucose Carboxyhemoglobin Sodium Potassium Chloride Carbon Dioxide BUN Creatinine Glucose POC Glucose Lactic Acid Calcium Phosphorus Magnesium Ferritin Direct Bilirubin AST ALT Alkaline Phosphatase Lactate Dehydrogenase Total Creatine Kinase 618 H C-Reactive Protein Total Protein Albumin Triglycerides Arterial Blood Glucose Arterial Blood Ionized Calcium 3.9 L Urine Creatinine Urine Chloride Vancomycin Trough Coronavirus (PCR) Crossmatch 06/30/20 06/30/20 06/30/20 03:50 03:50 11:39 WBC 13.1 H RBC Hgb Hct MCHC RDW Plt Count Lymph % (Auto) [place] % (Auto) Lymph # (Auto) [place] # (Auto) Eos # (Auto) Seg Neutrophils % Seg Neuts % (Manual) 95.0 H Lymphocytes % (Manual) 3.0 L Monocytes % (Manual) Nucleated RBC % Seg Neutrophils # Seg Neutrophils # Man 12.4 H Lymphocytes # (Manual) 0.4 L Monocytes # (Manual) Eosinophils # (Manual) PT INR APTT D-Dimer Heparin Anti-Xa Level ABG pH POC ABG pCO2 POC ABG pO2 ABG pO2 ABG HCO3 ABG Hemoglobin ABG Oxyhemoglobin ABG Sodium ABG Potassium ABG Chloride ABG Glucose Carboxyhemoglobin Sodium 135 L Potassium 5.4 H D Chloride 93.6 L Carbon Dioxide BUN 85 H Creatinine 4.6 H Glucose POC Glucose 111 H Lactic Acid Calcium 7.1 L Phosphorus 9.40 H Magnesium Ferritin Direct Bilirubin AST ALT Alkaline Phosphatase Lactate Dehydrogenase Total Creatine Kinase C-Reactive Protein Total Protein Albumin Triglycerides Arterial Blood Glucose Arterial Blood Ionized Calcium Urine Creatinine Urine Chloride Vancomycin Trough Coronavirus (PCR) Crossmatch 06/30/20 06/30/20 07/01/20 13:12 Unknown 03:19 WBC RBC Hgb 7.8 L D Hct 23.2 L D MCHC RDW Plt Count Lymph % (Auto) [place] % (Auto) Lymph # (Auto) [place] # (Auto) Eos # (Auto) Seg Neutrophils % Seg Neuts % (Manual) Lymphocytes % (Manual) Monocytes % (Manual) Nucleated RBC % Seg Neutrophils # Seg Neutrophils # Man Lymphocytes # (Manual) Monocytes # (Manual) Eosinophils # (Manual) PT INR APTT D-Dimer Heparin Anti-Xa Level ABG pH 7.461 H POC ABG pCO2 POC ABG pO2 77.2 L ABG pO2 ABG HCO3 ABG Hemoglobin 6.9 L ABG Oxyhemoglobin ABG Sodium 128.5 L ABG Potassium ABG Chloride 97.0 L ABG Glucose Carboxyhemoglobin Sodium Potassium Chloride Carbon Dioxide BUN Creatinine Glucose POC Glucose Lactic Acid Calcium Phosphorus Magnesium Ferritin Direct Bilirubin AST ALT Alkaline Phosphatase Lactate Dehydrogenase Total Creatine Kinase C-Reactive Protein Total Protein Albumin Triglycerides Arterial Blood Glucose Arterial Blood Ionized Calcium 3.7 L Urine Creatinine Urine Chloride Vancomycin Trough Coronavirus (PCR) Positive A Crossmatch 07/01/20 07/01/20 07/01/20 06:00 06:00 11:04 WBC 16.7 H RBC 2.16 L Hgb 6.4 L Hct 19.2 L* MCHC RDW Plt Count Lymph % (Auto) [place] % (Auto) Lymph # (Auto) [place] # (Auto) Eos # (Auto) Seg Neutrophils % Seg Neuts % (Manual) Lymphocytes % (Manual) Monocytes % (Manual) Nucleated RBC % Seg Neutrophils # Seg Neutrophils # Man Lymphocytes # (Manual) Monocytes # (Manual) Eosinophils # (Manual) PT INR APTT D-Dimer Heparin Anti-Xa Level ABG pH POC ABG pCO2 POC ABG pO2 ABG pO2 ABG HCO3 ABG Hemoglobin ABG Oxyhemoglobin ABG Sodium ABG Potassium ABG Chloride ABG Glucose Carboxyhemoglobin Sodium 136 L Potassium Chloride 95.8 L Carbon Dioxide BUN 72 H Creatinine 4.3 H Glucose POC Glucose Lactic Acid Calcium 6.7 L Phosphorus Magnesium Ferritin Direct Bilirubin AST ALT Alkaline Phosphatase Lactate Dehydrogenase Total Creatine Kinase C-Reactive Protein Total Protein Albumin Triglycerides 250 H Arterial Blood Glucose Arterial Blood Ionized Calcium Urine Creatinine Urine Chloride Vancomycin Trough Coronavirus (PCR) Crossmatch See Detail 07/02/20 07/02/20 07/02/20 04:44 06:00 11:33 WBC 14.6 H RBC 2.47 L Hgb 7.4 L Hct 21.8 L MCHC RDW Plt Count Lymph % (Auto) [place] % (Auto) Lymph # (Auto) [place] # (Auto) Eos # (Auto) Seg Neutrophils % Seg Neuts % (Manual) Lymphocytes % (Manual) Monocytes % (Manual) Nucleated RBC % Seg Neutrophils # Seg Neutrophils # Man Lymphocytes # (Manual) Monocytes # (Manual) Eosinophils # (Manual) PT INR APTT D-Dimer Heparin Anti-Xa Level ABG pH 7.457 H POC ABG pCO2 POC ABG pO2 79.4 L ABG pO2 ABG HCO3 ABG Hemoglobin 8.5 L ABG Oxyhemoglobin ABG Sodium 128.4 L ABG Potassium ABG Chloride 97.0 L ABG Glucose 100 H Carboxyhemoglobin Sodium 133 L Potassium 5.2 H Chloride 93.3 L Carbon Dioxide BUN 66 H Creatinine 4.1 H Glucose 102 H POC Glucose Lactic Acid Calcium 7.2 L Phosphorus Magnesium Ferritin Direct Bilirubin AST ALT Alkaline Phosphatase Lactate Dehydrogenase Total Creatine Kinase C-Reactive Protein Total Protein Albumin Triglycerides Arterial Blood Glucose 100 H Arterial Blood Ionized Calcium 3.9 L Urine Creatinine Urine Chloride Vancomycin Trough Coronavirus (PCR) Crossmatch 07/02/20 07/03/20 07/03/20 11:33 03:54 09:15 WBC 16.6 H RBC 2.44 L Hgb 7.3 L Hct 21.4 L MCHC RDW Plt Count Lymph % (Auto) [place] % (Auto) Lymph # (Auto) [place] # (Auto) Eos # (Auto) Seg Neutrophils % Seg Neuts % (Manual) Lymphocytes % (Manual) Monocytes % (Manual) Nucleated RBC % Seg Neutrophils # Seg Neutrophils # Man Lymphocytes # (Manual) Monocytes # (Manual) Eosinophils # (Manual) PT INR APTT D-Dimer Heparin Anti-Xa Level ABG pH POC ABG pCO2 POC ABG pO2 66.1 L ABG pO2 ABG HCO3 ABG Hemoglobin 8.0 L ABG Oxyhemoglobin ABG Sodium 124.6 L ABG Potassium 5.5 H ABG Chloride 96.0 L ABG Glucose 111 H Carboxyhemoglobin Sodium Potassium Chloride Carbon Dioxide BUN Creatinine Glucose POC Glucose Lactic Acid Calcium Phosphorus Magnesium Ferritin Direct Bilirubin 0.7 H AST 94 H ALT 60 H Alkaline Phosphatase Lactate Dehydrogenase Total Creatine Kinase C-Reactive Protein Total Protein 4.4 L Albumin 1.9 L Triglycerides Arterial Blood Glucose 111 H Arterial Blood Ionized Calcium 3.8 L Urine Creatinine Urine Chloride Vancomycin Trough Coronavirus (PCR) Crossmatch 07/03/20 07/03/20 07/03/20 09:15 10:10 14:50 WBC RBC Hgb Hct MCHC RDW Plt Count Lymph % (Auto) [place] % (Auto) Lymph # (Auto) [place] # (Auto) Eos # (Auto) Seg Neutrophils % Seg Neuts % (Manual) Lymphocytes % (Manual) Monocytes % (Manual) Nucleated RBC % Seg Neutrophils # Seg Neutrophils # Man Lymphocytes # (Manual) Monocytes # (Manual) Eosinophils # (Manual) PT INR APTT D-Dimer 6608.00 H Heparin Anti-Xa Level ABG pH POC ABG pCO2 POC ABG pO2 ABG pO2 ABG HCO3 ABG Hemoglobin ABG Oxyhemoglobin ABG Sodium ABG Potassium ABG Chloride ABG Glucose Carboxyhemoglobin Sodium 133 L Potassium 6.2 H* Chloride 93.1 L Carbon Dioxide BUN 89 H Creatinine 5.1 H Glucose POC Glucose Lactic Acid Calcium 7.0 L Phosphorus Magnesium Ferritin Direct Bilirubin AST ALT Alkaline Phosphatase Lactate Dehydrogenase Total Creatine Kinase C-Reactive Protein Total Protein Albumin Triglycerides Arterial Blood Glucose Arterial Blood Ionized Calcium Urine Creatinine Urine Chloride Vancomycin Trough Coronavirus (PCR) Positive A Crossmatch 07/03/20 07/03/20 07/03/20 14:50 14:50 14:50 WBC RBC Hgb Hct MCHC RDW Plt Count Lymph % (Auto) [place] % (Auto) Lymph # (Auto) [place] # (Auto) Eos # (Auto) Seg Neutrophils % Seg Neuts % (Manual) Lymphocytes % (Manual) Monocytes % (Manual) Nucleated RBC % Seg Neutrophils # Seg Neutrophils # Man Lymphocytes # (Manual) Monocytes # (Manual) Eosinophils # (Manual) PT INR APTT D-Dimer Heparin Anti-Xa Level ABG pH POC ABG pCO2 POC ABG pO2 ABG pO2 ABG HCO3 ABG Hemoglobin ABG Oxyhemoglobin ABG Sodium ABG Potassium ABG Chloride ABG Glucose Carboxyhemoglobin Sodium Potassium Chloride Carbon Dioxide BUN Creatinine Glucose POC Glucose Lactic Acid < 0.20 L Calcium Phosphorus Magnesium Ferritin 1171.0 H Direct Bilirubin AST ALT Alkaline Phosphatase Lactate Dehydrogenase 525 H Total Creatine Kinase C-Reactive Protein 31.50 H Total Protein Albumin Triglycerides Arterial Blood Glucose Arterial Blood Ionized Calcium Urine Creatinine Urine Chloride Vancomycin Trough Coronavirus (PCR) Crossmatch 07/03/20 07/04/20 07/04/20 16:47 05:20 05:20 WBC 11.8 H RBC 2.32 L Hgb 6.7 L Hct 20.8 L MCHC RDW Plt Count Lymph % (Auto) 2.6 L [place] % (Auto) Lymph # (Auto) 0.3 L [place] # (Auto) Eos # (Auto) Seg Neutrophils % Seg Neuts % (Manual) Lymphocytes % (Manual) Monocytes % (Manual) Nucleated RBC % Seg Neutrophils # 11.0 H Seg Neutrophils # Man Lymphocytes # (Manual) Monocytes # (Manual) Eosinophils # (Manual) PT INR APTT D-Dimer Heparin Anti-Xa Level ABG pH POC ABG pCO2 POC ABG pO2 ABG pO2 ABG HCO3 ABG Hemoglobin ABG Oxyhemoglobin ABG Sodium ABG Potassium ABG Chloride ABG Glucose Carboxyhemoglobin Sodium Potassium 6.0 H Chloride 97.8 L Carbon Dioxide BUN 75 H Creatinine 4.5 H Glucose 121 H POC Glucose 107 H Lactic Acid Calcium 7.9 L Phosphorus Magnesium Ferritin Direct Bilirubin AST ALT Alkaline Phosphatase Lactate Dehydrogenase Total Creatine Kinase C-Reactive Protein Total Protein Albumin Triglycerides Arterial Blood Glucose Arterial Blood Ionized Calcium Urine Creatinine Urine Chloride Vancomycin Trough Coronavirus (PCR) Crossmatch 07/04/20 07/04/20 07/04/20 05:20 05:50 09:25 WBC RBC Hgb Hct MCHC RDW Plt Count Lymph % (Auto) [place] % (Auto) Lymph # (Auto) [place] # (Auto) Eos # (Auto) Seg Neutrophils % Seg Neuts % (Manual) Lymphocytes % (Manual) Monocytes % (Manual) Nucleated RBC % Seg Neutrophils # Seg Neutrophils # Man Lymphocytes # (Manual) Monocytes # (Manual) Eosinophils # (Manual) PT INR APTT D-Dimer Heparin Anti-Xa Level ABG pH 7.324 L POC ABG pCO2 POC ABG pO2 ABG pO2 98.9 H ABG HCO3 26.8 H ABG Hemoglobin < 5.1 L ABG Oxyhemoglobin ABG Sodium ABG Potassium ABG Chloride ABG Glucose Carboxyhemoglobin Sodium Potassium Chloride Carbon Dioxide BUN Creatinine Glucose POC Glucose 114 H Lactic Acid Calcium Phosphorus Magnesium Ferritin Direct Bilirubin AST ALT Alkaline Phosphatase Lactate Dehydrogenase Total Creatine Kinase C-Reactive Protein Total Protein Albumin Triglycerides Arterial Blood Glucose Arterial Blood Ionized Calcium Urine Creatinine Urine Chloride Vancomycin Trough Coronavirus (PCR) Crossmatch See Detail 07/04/20 07/04/20 07/04/20 12:33 17:41 23:04 WBC RBC Hgb Hct MCHC RDW Plt Count Lymph % (Auto) [place] % (Auto) Lymph # (Auto) [place] # (Auto) Eos # (Auto) Seg Neutrophils % Seg Neuts % (Manual) Lymphocytes % (Manual) Monocytes % (Manual) Nucleated RBC % Seg Neutrophils # Seg Neutrophils # Man Lymphocytes # (Manual) Monocytes # (Manual) Eosinophils # (Manual) PT INR APTT D-Dimer Heparin Anti-Xa Level ABG pH POC ABG pCO2 POC ABG pO2 ABG pO2 ABG HCO3 ABG Hemoglobin ABG Oxyhemoglobin ABG Sodium ABG Potassium ABG Chloride ABG Glucose Carboxyhemoglobin Sodium Potassium Chloride Carbon Dioxide BUN Creatinine Glucose POC Glucose 119 H 109 H 116 H Lactic Acid Calcium Phosphorus Magnesium Ferritin Direct Bilirubin AST ALT Alkaline Phosphatase Lactate Dehydrogenase Total Creatine Kinase C-Reactive Protein Total Protein Albumin Triglycerides Arterial Blood Glucose Arterial Blood Ionized Calcium Urine Creatinine Urine Chloride Vancomycin Trough Coronavirus (PCR) Crossmatch 07/05/20 07/05/20 07/05/20 04:30 08:21 08:21 WBC RBC 2.77 L Hgb 7.9 L Hct 23.9 L MCHC RDW 16.7 H Plt Count Lymph % (Auto) 7.5 L [place] % (Auto) Lymph # (Auto) 0.7 L [place] # (Auto) Eos # (Auto) Seg Neutrophils % 85.8 H Seg Neuts % (Manual) Lymphocytes % (Manual) Monocytes % (Manual) Nucleated RBC % Seg Neutrophils # 7.8 H Seg Neutrophils # Man Lymphocytes # (Manual) Monocytes # (Manual) Eosinophils # (Manual) PT INR APTT D-Dimer Heparin Anti-Xa Level ABG pH 7.295 L POC ABG pCO2 POC ABG pO2 ABG pO2 151.9 H ABG HCO3 26.8 H ABG Hemoglobin 7.3 L ABG Oxyhemoglobin ABG Sodium ABG Potassium ABG Chloride ABG Glucose Carboxyhemoglobin Sodium Potassium Chloride Carbon Dioxide BUN Creatinine Glucose POC Glucose Lactic Acid Calcium Phosphorus Magnesium Ferritin Direct Bilirubin AST ALT Alkaline Phosphatase Lactate Dehydrogenase Total Creatine Kinase C-Reactive Protein Total Protein Albumin Triglycerides 258 H Arterial Blood Glucose Arterial Blood Ionized Calcium Urine Creatinine Urine Chloride Vancomycin Trough Coronavirus (PCR) Crossmatch 07/05/20 07/05/20 07/06/20 08:21 12:12 04:29 WBC RBC Hgb Hct MCHC RDW Plt Count Lymph % (Auto) [place] % (Auto) Lymph # (Auto) [place] # (Auto) Eos # (Auto) Seg Neutrophils % Seg Neuts % (Manual) Lymphocytes % (Manual) Monocytes % (Manual) Nucleated RBC % Seg Neutrophils # Seg Neutrophils # Man Lymphocytes # (Manual) Monocytes # (Manual) Eosinophils # (Manual) PT INR APTT D-Dimer Heparin Anti-Xa Level ABG pH 7.291 L POC ABG pCO2 51.3 H POC ABG pO2 ABG pO2 ABG HCO3 ABG Hemoglobin 8.5 L ABG Oxyhemoglobin ABG Sodium 129.6 L ABG Potassium 4.8 H ABG Chloride 96.0 L ABG Glucose Carboxyhemoglobin Sodium 133 L Potassium 5.6 H Chloride 94.4 L Carbon Dioxide BUN 80 H Creatinine 4.2 H Glucose 114 H POC Glucose 106 H Lactic Acid Calcium 7.6 L Phosphorus Magnesium Ferritin Direct Bilirubin 0.5 H AST 75 H ALT 86 H Alkaline Phosphatase Lactate Dehydrogenase Total Creatine Kinase C-Reactive Protein Total Protein 5.6 L D Albumin 1.9 L Triglycerides Arterial Blood Glucose Arterial Blood Ionized Calcium 4.2 L Urine Creatinine Urine Chloride Vancomycin Trough Coronavirus (PCR) Crossmatch 07/06/20 07/06/20 07/06/20 11:35 11:35 12:16 WBC RBC 2.54 L Hgb 7.5 L Hct 21.5 L MCHC 35 H RDW 15.7 H Plt Count Lymph % (Auto) [place] % (Auto) Lymph # (Auto) [place] # (Auto) Eos # (Auto) Seg Neutrophils % Seg Neuts % (Manual) Lymphocytes % (Manual) Monocytes % (Manual) Nucleated RBC % Seg Neutrophils # Seg Neutrophils # Man Lymphocytes # (Manual) Monocytes # (Manual) Eosinophils # (Manual) PT INR APTT D-Dimer Heparin Anti-Xa Level ABG pH POC ABG pCO2 POC ABG pO2 ABG pO2 ABG HCO3 ABG Hemoglobin ABG Oxyhemoglobin ABG Sodium ABG Potassium ABG Chloride ABG Glucose Carboxyhemoglobin Sodium 130 L Potassium Chloride 92.2 L Carbon Dioxide 19 L D BUN 107 H Creatinine 5.1 H Glucose 106 H POC Glucose 106 H Lactic Acid Calcium 7.5 L Phosphorus Magnesium Ferritin Direct Bilirubin AST ALT Alkaline Phosphatase Lactate Dehydrogenase Total Creatine Kinase C-Reactive Protein Total Protein Albumin Triglycerides Arterial Blood Glucose Arterial Blood Ionized Calcium Urine Creatinine Urine Chloride Vancomycin Trough Coronavirus (PCR) Crossmatch 07/06/20 07/06/20 07/06/20 17:01 21:56 23:41 WBC RBC Hgb Hct MCHC RDW Plt Count Lymph % (Auto) [place] % (Auto) Lymph # (Auto) [place] # (Auto) Eos # (Auto) Seg Neutrophils % Seg Neuts % (Manual) Lymphocytes % (Manual) Monocytes % (Manual) Nucleated RBC % Seg Neutrophils # Seg Neutrophils # Man Lymphocytes # (Manual) Monocytes # (Manual) Eosinophils # (Manual) PT INR APTT D-Dimer Heparin Anti-Xa Level ABG pH POC ABG pCO2 POC ABG pO2 ABG pO2 ABG HCO3 ABG Hemoglobin ABG Oxyhemoglobin ABG Sodium ABG Potassium ABG Chloride ABG Glucose Carboxyhemoglobin Sodium 135 L Potassium 5.1 H Chloride Carbon Dioxide BUN 73 H Creatinine 4.0 H Glucose 112 H POC Glucose 109 H 111 H Lactic Acid Calcium 7.8 L Phosphorus Magnesium Ferritin Direct Bilirubin AST ALT Alkaline Phosphatase Lactate Dehydrogenase Total Creatine Kinase C-Reactive Protein Total Protein Albumin Triglycerides Arterial Blood Glucose Arterial Blood Ionized Calcium Urine Creatinine Urine Chloride Vancomycin Trough Coronavirus (PCR) Crossmatch 07/07/20 07/07/20 07/07/20 04:18 05:04 05:29 WBC RBC 2.46 L Hgb 7.6 L Hct 21.5 L MCHC 35 H RDW 16.5 H Plt Count Lymph % (Auto) [place] % (Auto) Lymph # (Auto) [place] # (Auto) Eos # (Auto) Seg Neutrophils % Seg Neuts % (Manual) 82.0 H Lymphocytes % (Manual) Monocytes % (Manual) Nucleated RBC % 1.0 H Seg Neutrophils # Seg Neutrophils # Man Lymphocytes # (Manual) 1.1 L Monocytes # (Manual) Eosinophils # (Manual) PT INR APTT D-Dimer Heparin Anti-Xa Level ABG pH POC ABG pCO2 POC ABG pO2 79.6 L ABG pO2 ABG HCO3 ABG Hemoglobin 8.2 L ABG Oxyhemoglobin ABG Sodium 133.3 L ABG Potassium 4.7 H ABG Chloride ABG Glucose 135 H Carboxyhemoglobin Sodium Potassium Chloride Carbon Dioxide BUN Creatinine Glucose POC Glucose 112 H Lactic Acid Calcium Phosphorus Magnesium Ferritin Direct Bilirubin AST ALT Alkaline Phosphatase Lactate Dehydrogenase Total Creatine Kinase C-Reactive Protein Total Protein Albumin Triglycerides Arterial Blood Glucose 135 H Arterial Blood Ionized Calcium 4.5 L Urine Creatinine Urine Chloride Vancomycin Trough Coronavirus (PCR) Crossmatch 07/07/20 07/07/20 07/07/20 10:17 12:18 17:43 WBC RBC Hgb Hct MCHC RDW Plt Count Lymph % (Auto) [place] % (Auto) Lymph # (Auto) [place] # (Auto) Eos # (Auto) Seg Neutrophils % Seg Neuts % (Manual) Lymphocytes % (Manual) Monocytes % (Manual) Nucleated RBC % Seg Neutrophils # Seg Neutrophils # Man Lymphocytes # (Manual) Monocytes # (Manual) Eosinophils # (Manual) PT INR APTT D-Dimer Heparin Anti-Xa Level ABG pH POC ABG pCO2 POC ABG pO2 ABG pO2 ABG HCO3 ABG Hemoglobin ABG Oxyhemoglobin ABG Sodium ABG Potassium ABG Chloride ABG Glucose Carboxyhemoglobin Sodium 136 L Potassium Chloride 96.8 L Carbon Dioxide BUN 82 H Creatinine 4.3 H Glucose 129 H POC Glucose 108 H 116 H Lactic Acid Calcium 7.8 L Phosphorus Magnesium Ferritin Direct Bilirubin AST ALT Alkaline Phosphatase Lactate Dehydrogenase Total Creatine Kinase C-Reactive Protein Total Protein Albumin Triglycerides Arterial Blood Glucose Arterial Blood Ionized Calcium Urine Creatinine Urine Chloride Vancomycin Trough Coronavirus (PCR) Crossmatch 07/07/20 07/08/20 07/08/20 23:31 04:00 04:00 WBC RBC 2.52 L Hgb 7.3 L Hct 22.2 L MCHC RDW 16.6 H Plt Count Lymph % (Auto) 11.5 L [place] % (Auto) Lymph # (Auto) [place] # (Auto) Eos # (Auto) Seg Neutrophils % 78.2 H Seg Neuts % (Manual) Lymphocytes % (Manual) Monocytes % (Manual) Nucleated RBC % Seg Neutrophils # 8.0 H Seg Neutrophils # Man Lymphocytes # (Manual) Monocytes # (Manual) Eosinophils # (Manual) PT INR APTT D-Dimer Heparin Anti-Xa Level ABG pH POC ABG pCO2 POC ABG pO2 ABG pO2 ABG HCO3 ABG Hemoglobin ABG Oxyhemoglobin ABG Sodium ABG Potassium ABG Chloride ABG Glucose Carboxyhemoglobin Sodium 132 L Potassium 5.4 H Chloride 92.5 L Carbon Dioxide BUN 98 H Creatinine 4.9 H Glucose 105 H POC Glucose 117 H Lactic Acid Calcium 7.9 L Phosphorus Magnesium Ferritin Direct Bilirubin AST ALT Alkaline Phosphatase Lactate Dehydrogenase Total Creatine Kinase C-Reactive Protein Total Protein Albumin Triglycerides Arterial Blood Glucose Arterial Blood Ionized Calcium Urine Creatinine Urine Chloride Vancomycin Trough Coronavirus (PCR) Crossmatch 07/08/20 07/08/20 07/08/20 04:09 11:34 17:05 WBC RBC Hgb Hct MCHC RDW Plt Count Lymph % (Auto) [place] % (Auto) Lymph # (Auto) [place] # (Auto) Eos # (Auto) Seg Neutrophils % Seg Neuts % (Manual) Lymphocytes % (Manual) Monocytes % (Manual) Nucleated RBC % Seg Neutrophils # Seg Neutrophils # Man Lymphocytes # (Manual) Monocytes # (Manual) Eosinophils # (Manual) PT INR APTT D-Dimer Heparin Anti-Xa Level ABG pH 7.220 L POC ABG pCO2 60.5 H POC ABG pO2 ABG pO2 ABG HCO3 ABG Hemoglobin 8.2 L ABG Oxyhemoglobin ABG Sodium 131.3 L ABG Potassium 5.2 H ABG Chloride ABG Glucose 103 H Carboxyhemoglobin Sodium Potassium Chloride Carbon Dioxide BUN Creatinine Glucose POC Glucose 140 H 125 H Lactic Acid Calcium Phosphorus Magnesium Ferritin Direct Bilirubin AST ALT Alkaline Phosphatase Lactate Dehydrogenase Total Creatine Kinase C-Reactive Protein Total Protein Albumin Triglycerides Arterial Blood Glucose 103 H Arterial Blood Ionized Calcium 4.3 L Urine Creatinine Urine Chloride Vancomycin Trough Coronavirus (PCR) Crossmatch 07/08/20 07/08/20 07/09/20 20:21 23:43 05:10 WBC RBC Hgb Hct MCHC RDW Plt Count Lymph % (Auto) [place] % (Auto) Lymph # (Auto) [place] # (Auto) Eos # (Auto) Seg Neutrophils % Seg Neuts % (Manual) Lymphocytes % (Manual) Monocytes % (Manual) Nucleated RBC % Seg Neutrophils # Seg Neutrophils # Man Lymphocytes # (Manual) Monocytes # (Manual) Eosinophils # (Manual) PT INR APTT D-Dimer Heparin Anti-Xa Level ABG pH 7.20 L POC ABG pCO2 69.8 H POC ABG pO2 138.9 H 76.1 L ABG pO2 ABG HCO3 ABG Hemoglobin 11.9 L 8.4 L ABG Oxyhemoglobin ABG Sodium 133.1 L 131.2 L ABG Potassium 5.0 H 4.7 H ABG Chloride ABG Glucose 120 H 102 H Carboxyhemoglobin Sodium Potassium Chloride Carbon Dioxide BUN Creatinine Glucose POC Glucose 118 H Lactic Acid Calcium Phosphorus Magnesium Ferritin Direct Bilirubin AST ALT Alkaline Phosphatase Lactate Dehydrogenase Total Creatine Kinase C-Reactive Protein Total Protein Albumin Triglycerides Arterial Blood Glucose 120 H 102 H Arterial Blood Ionized Calcium 4.4 L 4.3 L Urine Creatinine Urine Chloride Vancomycin Trough Coronavirus (PCR) Crossmatch 07/09/20 07/09/20 07/09/20 11:51 17:04 21:00 WBC RBC Hgb Hct MCHC RDW Plt Count Lymph % (Auto) [place] % (Auto) Lymph # (Auto) [place] # (Auto) Eos # (Auto) Seg Neutrophils % Seg Neuts % (Manual) Lymphocytes % (Manual) Monocytes % (Manual) Nucleated RBC % Seg Neutrophils # Seg Neutrophils # Man Lymphocytes # (Manual) Monocytes # (Manual) Eosinophils # (Manual) PT INR APTT D-Dimer Heparin Anti-Xa Level ABG pH POC ABG pCO2 POC ABG pO2 114.2 H ABG pO2 ABG HCO3 ABG Hemoglobin 7.8 L ABG Oxyhemoglobin ABG Sodium 132.3 L ABG Potassium 4.6 H ABG Chloride ABG Glucose Carboxyhemoglobin Sodium Potassium Chloride Carbon Dioxide BUN Creatinine Glucose POC Glucose 113 H 111 H Lactic Acid Calcium Phosphorus Magnesium Ferritin Direct Bilirubin AST ALT Alkaline Phosphatase Lactate Dehydrogenase Total Creatine Kinase C-Reactive Protein Total Protein Albumin Triglycerides Arterial Blood Glucose Arterial Blood Ionized Calcium 4.4 L Urine Creatinine Urine Chloride Vancomycin Trough Coronavirus (PCR) Crossmatch 07/10/20 07/10/20 07/10/20 03:49 03:55 03:55 WBC 18.1 H RBC 2.37 L Hgb 6.8 L Hct 20.7 L MCHC RDW 16.9 H Plt Count Lymph % (Auto) [place] % (Auto) Lymph # (Auto) [place] # (Auto) Eos # (Auto) Seg Neutrophils % Seg Neuts % (Manual) 79.0 H Lymphocytes % (Manual) 10.0 L Monocytes % (Manual) Nucleated RBC % 1.0 H Seg Neutrophils # Seg Neutrophils # Man 14.3 H Lymphocytes # (Manual) Monocytes # (Manual) Eosinophils # (Manual) 0.7 H PT INR APTT D-Dimer Heparin Anti-Xa Level ABG pH POC ABG pCO2 POC ABG pO2 ABG pO2 ABG HCO3 ABG Hemoglobin 7.7 L ABG Oxyhemoglobin ABG Sodium 130.3 L ABG Potassium 4.6 H ABG Chloride ABG Glucose Carboxyhemoglobin Sodium 136 L Potassium Chloride 96.0 L Carbon Dioxide BUN 76 H Creatinine 3.6 H Glucose POC Glucose Lactic Acid Calcium 7.4 L Phosphorus Magnesium Ferritin Direct Bilirubin AST ALT Alkaline Phosphatase Lactate Dehydrogenase Total Creatine Kinase C-Reactive Protein Total Protein Albumin Triglycerides Arterial Blood Glucose Arterial Blood Ionized Calcium 4.2 L Urine Creatinine Urine Chloride Vancomycin Trough Coronavirus (PCR) Crossmatch 07/10/20 07/11/20 07/11/20 13:24 04:08 06:52 WBC 26.0 H RBC 2.91 L Hgb 8.2 L Hct 24.8 L MCHC RDW 17.2 H Plt Count Lymph % (Auto) [place] % (Auto) Lymph # (Auto) [place] # (Auto) Eos # (Auto) Seg Neutrophils % Seg Neuts % (Manual) Lymphocytes % (Manual) 1.0 L Monocytes % (Manual) 11.0 H Nucleated RBC % Seg Neutrophils # Seg Neutrophils # Man 16.9 H Lymphocytes # (Manual) 0.3 L Monocytes # (Manual) 2.9 H Eosinophils # (Manual) 1.0 H PT INR APTT D-Dimer Heparin Anti-Xa Level ABG pH POC ABG pCO2 POC ABG pO2 ABG pO2 ABG HCO3 ABG Hemoglobin 8.5 L ABG Oxyhemoglobin ABG Sodium 130.6 L ABG Potassium 4.9 H ABG Chloride ABG Glucose 105 H Carboxyhemoglobin Sodium Potassium Chloride Carbon Dioxide BUN Creatinine Glucose POC Glucose Lactic Acid Calcium Phosphorus Magnesium Ferritin Direct Bilirubin AST ALT Alkaline Phosphatase Lactate Dehydrogenase Total Creatine Kinase C-Reactive Protein Total Protein Albumin Triglycerides Arterial Blood Glucose 105 H Arterial Blood Ionized Calcium 4.1 L Urine Creatinine Urine Chloride Vancomycin Trough Coronavirus (PCR) Crossmatch See Detail 07/11/20 07/11/20 07/11/20 06:52 08:48 11:39 WBC RBC Hgb Hct MCHC RDW Plt Count Lymph % (Auto) [place] % (Auto) Lymph # (Auto) [place] # (Auto) Eos # (Auto) Seg Neutrophils % Seg Neuts % (Manual) Lymphocytes % (Manual) Monocytes % (Manual) Nucleated RBC % Seg Neutrophils # Seg Neutrophils # Man Lymphocytes # (Manual) Monocytes # (Manual) Eosinophils # (Manual) PT INR APTT D-Dimer Heparin Anti-Xa Level ABG pH POC ABG pCO2 POC ABG pO2 ABG pO2 ABG HCO3 ABG Hemoglobin ABG Oxyhemoglobin ABG Sodium ABG Potassium ABG Chloride ABG Glucose Carboxyhemoglobin Sodium 133 L 134 L Potassium 5.3 H Chloride 93.5 L 94.8 L Carbon Dioxide BUN 101 H 99 H Creatinine 4.5 H 4.6 H Glucose 102 H POC Glucose 116 H Lactic Acid Calcium 7.8 L 7.6 L Phosphorus Magnesium Ferritin Direct Bilirubin AST ALT Alkaline Phosphatase Lactate Dehydrogenase Total Creatine Kinase C-Reactive Protein Total Protein Albumin Triglycerides Arterial Blood Glucose Arterial Blood Ionized Calcium Urine Creatinine Urine Chloride Vancomycin Trough Coronavirus (PCR) Crossmatch 07/11/20 07/12/20 07/12/20 17:23 00:04 03:20 WBC RBC Hgb Hct MCHC RDW Plt Count Lymph % (Auto) [place] % (Auto) Lymph # (Auto) [place] # (Auto) Eos # (Auto) Seg Neutrophils % Seg Neuts % (Manual) Lymphocytes % (Manual) Monocytes % (Manual) Nucleated RBC % Seg Neutrophils # Seg Neutrophils # Man Lymphocytes # (Manual) Monocytes # (Manual) Eosinophils # (Manual) PT INR APTT D-Dimer Heparin Anti-Xa Level ABG pH POC ABG pCO2 49.1 H POC ABG pO2 130.3 H ABG pO2 ABG HCO3 ABG Hemoglobin 8.7 L ABG Oxyhemoglobin ABG Sodium 135.2 L ABG Potassium 4.7 H ABG Chloride ABG Glucose 128 H Carboxyhemoglobin Sodium Potassium Chloride Carbon Dioxide BUN Creatinine Glucose POC Glucose 142 H 113 H Lactic Acid Calcium Phosphorus Magnesium Ferritin Direct Bilirubin AST ALT Alkaline Phosphatase Lactate Dehydrogenase Total Creatine Kinase C-Reactive Protein Total Protein Albumin Triglycerides Arterial Blood Glucose 128 H Arterial Blood Ionized Calcium 4.4 L Urine Creatinine Urine Chloride Vancomycin Trough Coronavirus (PCR) Crossmatch 07/12/20 07/12/20 07/12/20 03:40 03:40 04:00 WBC 24.3 H RBC 2.83 L Hgb 8.0 L Hct 24.9 L MCHC RDW 17.7 H Plt Count Lymph % (Auto) 5.6 L [place] % (Auto) 7.4 H Lymph # (Auto) [place] # (Auto) 1.8 H Eos # (Auto) 0.7 H Seg Neutrophils % 83.9 H Seg Neuts % (Manual) Lymphocytes % (Manual) Monocytes % (Manual) Nucleated RBC % Seg Neutrophils # 20.4 H Seg Neutrophils # Man Lymphocytes # (Manual) Monocytes # (Manual) Eosinophils # (Manual) PT INR APTT D-Dimer Heparin Anti-Xa Level ABG pH POC ABG pCO2 POC ABG pO2 ABG pO2 ABG HCO3 ABG Hemoglobin ABG Oxyhemoglobin ABG Sodium ABG Potassium ABG Chloride ABG Glucose Carboxyhemoglobin Sodium 134 L Potassium Chloride 95.5 L Carbon Dioxide BUN 79 H Creatinine 3.7 H Glucose 127 H POC Glucose Lactic Acid Calcium 7.8 L Phosphorus Magnesium Ferritin Direct Bilirubin AST ALT Alkaline Phosphatase Lactate Dehydrogenase Total Creatine Kinase C-Reactive Protein Total Protein Albumin Triglycerides 246 H Arterial Blood Glucose Arterial Blood Ionized Calcium Urine Creatinine Urine Chloride Vancomycin Trough Coronavirus (PCR) Crossmatch 07/12/20 07/12/20 07/12/20 05:48 11:50 17:29 WBC RBC Hgb Hct MCHC RDW Plt Count Lymph % (Auto) [place] % (Auto) Lymph # (Auto) [place] # (Auto) Eos # (Auto) Seg Neutrophils % Seg Neuts % (Manual) Lymphocytes % (Manual) Monocytes % (Manual) Nucleated RBC % Seg Neutrophils # Seg Neutrophils # Man Lymphocytes # (Manual) Monocytes # (Manual) Eosinophils # (Manual) PT INR APTT D-Dimer Heparin Anti-Xa Level ABG pH POC ABG pCO2 POC ABG pO2 ABG pO2 ABG HCO3 ABG Hemoglobin ABG Oxyhemoglobin ABG Sodium ABG Potassium ABG Chloride ABG Glucose Carboxyhemoglobin Sodium Potassium Chloride Carbon Dioxide BUN Creatinine Glucose POC Glucose 136 H 113 H 110 H Lactic Acid Calcium Phosphorus Magnesium Ferritin Direct Bilirubin AST ALT Alkaline Phosphatase Lactate Dehydrogenase Total Creatine Kinase C-Reactive Protein Total Protein Albumin Triglycerides Arterial Blood Glucose Arterial Blood Ionized Calcium Urine Creatinine Urine Chloride Vancomycin Trough Coronavirus (PCR) Crossmatch 07/12/20 07/13/20 07/13/20 23:43 03:11 06:59 WBC RBC Hgb Hct MCHC RDW Plt Count Lymph % (Auto) [place] % (Auto) Lymph # (Auto) [place] # (Auto) Eos # (Auto) Seg Neutrophils % Seg Neuts % (Manual) Lymphocytes % (Manual) Monocytes % (Manual) Nucleated RBC % Seg Neutrophils # Seg Neutrophils # Man Lymphocytes # (Manual) Monocytes # (Manual) Eosinophils # (Manual) PT INR APTT D-Dimer Heparin Anti-Xa Level ABG pH POC ABG pCO2 49.0 H POC ABG pO2 69.6 L ABG pO2 ABG HCO3 ABG Hemoglobin 8.5 L ABG Oxyhemoglobin 90.5 L ABG Sodium 133.6 L ABG Potassium 5.1 H ABG Chloride ABG Glucose 104 H Carboxyhemoglobin Sodium 133 L Potassium 5.7 H Chloride 96.3 L Carbon Dioxide 20 L D BUN 102 H Creatinine 4.4 H Glucose 101 H POC Glucose 120 H Lactic Acid Calcium 7.9 L Phosphorus Magnesium Ferritin Direct Bilirubin AST 61 H ALT 85 H Alkaline Phosphatase 144 H Lactate Dehydrogenase Total Creatine Kinase C-Reactive Protein Total Protein 5.4 L Albumin 2.0 L Triglycerides Arterial Blood Glucose 104 H Arterial Blood Ionized Calcium 4.3 L Urine Creatinine Urine Chloride Vancomycin Trough Coronavirus (PCR) Crossmatch 07/13/20 07/13/20 07/13/20 08:48 12:14 15:12 WBC 27.5 H RBC 3.03 L Hgb 8.7 L Hct 27.0 L MCHC RDW 18.0 H Plt Count Lymph % (Auto) [place] % (Auto) Lymph # (Auto) [place] # (Auto) Eos # (Auto) Seg Neutrophils % Seg Neuts % (Manual) Lymphocytes % (Manual) Monocytes % (Manual) Nucleated RBC % Seg Neutrophils # Seg Neutrophils # Man Lymphocytes # (Manual) Monocytes # (Manual) Eosinophils # (Manual) PT INR APTT D-Dimer Heparin Anti-Xa Level ABG pH POC ABG pCO2 POC ABG pO2 ABG pO2 ABG HCO3 ABG Hemoglobin ABG Oxyhemoglobin ABG Sodium ABG Potassium ABG Chloride ABG Glucose Carboxyhemoglobin Sodium Potassium 5.5 H Chloride Carbon Dioxide BUN 88 H Creatinine 3.8 H Glucose 133 H POC Glucose 134 H Lactic Acid Calcium 7.5 L Phosphorus Magnesium Ferritin Direct Bilirubin AST ALT Alkaline Phosphatase Lactate Dehydrogenase Total Creatine Kinase C-Reactive Protein Total Protein Albumin Triglycerides Arterial Blood Glucose Arterial Blood Ionized Calcium Urine Creatinine Urine Chloride Vancomycin Trough Coronavirus (PCR) Crossmatch 07/13/20 07/13/20 07/13/20 16:46 16:47 18:46 WBC RBC Hgb 7.4 L Hct 22.1 L MCHC RDW Plt Count Lymph % (Auto) [place] % (Auto) Lymph # (Auto) [place] # (Auto) Eos # (Auto) Seg Neutrophils % Seg Neuts % (Manual) Lymphocytes % (Manual) Monocytes % (Manual) Nucleated RBC % Seg Neutrophils # Seg Neutrophils # Man Lymphocytes # (Manual) Monocytes # (Manual) Eosinophils # (Manual) PT INR APTT D-Dimer Heparin Anti-Xa Level ABG pH POC ABG pCO2 POC ABG pO2 ABG pO2 ABG HCO3 ABG Hemoglobin ABG Oxyhemoglobin ABG Sodium ABG Potassium ABG Chloride ABG Glucose Carboxyhemoglobin Sodium Potassium Chloride Carbon Dioxide BUN Creatinine Glucose POC Glucose 118 H Lactic Acid Calcium Phosphorus Magnesium Ferritin Direct Bilirubin AST ALT Alkaline Phosphatase Lactate Dehydrogenase Total Creatine Kinase C-Reactive Protein Total Protein Albumin Triglycerides Arterial Blood Glucose Arterial Blood Ionized Calcium Urine Creatinine Urine Chloride Vancomycin Trough Coronavirus (PCR) Crossmatch See Detail 07/13/20 07/14/20 07/14/20 23:34 04:25 12:21 WBC RBC Hgb Hct MCHC RDW Plt Count Lymph % (Auto) [place] % (Auto) Lymph # (Auto) [place] # (Auto) Eos # (Auto) Seg Neutrophils % Seg Neuts % (Manual) Lymphocytes % (Manual) Monocytes % (Manual) Nucleated RBC % Seg Neutrophils # Seg Neutrophils # Man Lymphocytes # (Manual) Monocytes # (Manual) Eosinophils # (Manual) PT INR APTT D-Dimer Heparin Anti-Xa Level ABG pH POC ABG pCO2 POC ABG pO2 ABG pO2 ABG HCO3 ABG Hemoglobin 8.9 L ABG Oxyhemoglobin ABG Sodium 133.1 L ABG Potassium 4.7 H ABG Chloride ABG Glucose 113 H Carboxyhemoglobin Sodium Potassium Chloride Carbon Dioxide BUN Creatinine Glucose POC Glucose 109 H 109 H Lactic Acid Calcium Phosphorus Magnesium Ferritin Direct Bilirubin AST ALT Alkaline Phosphatase Lactate Dehydrogenase Total Creatine Kinase C-Reactive Protein Total Protein Albumin Triglycerides Arterial Blood Glucose 113 H Arterial Blood Ionized Calcium 4.4 L Urine Creatinine Urine Chloride Vancomycin Trough Coronavirus (PCR) Crossmatch 07/14/20 07/14/20 07/14/20 16:44 16:44 20:20 WBC 30.1 H RBC 2.60 L Hgb 7.4 L 5.6 L* Hct 23.0 L 18.1 L* MCHC RDW 18.0 H Plt Count Lymph % (Auto) [place] % (Auto) Lymph # (Auto) [place] # (Auto) Eos # (Auto) Seg Neutrophils % Seg Neuts % (Manual) 78.0 H Lymphocytes % (Manual) 5.0 L Monocytes % (Manual) Nucleated RBC % Seg Neutrophils # Seg Neutrophils # Man 23.5 H Lymphocytes # (Manual) Monocytes # (Manual) 0.9 H Eosinophils # (Manual) PT 15.6 H INR 1.26 H APTT D-Dimer Heparin Anti-Xa Level ABG pH POC ABG pCO2 POC ABG pO2 ABG pO2 ABG HCO3 ABG Hemoglobin ABG Oxyhemoglobin ABG Sodium ABG Potassium ABG Chloride ABG Glucose Carboxyhemoglobin Sodium Potassium Chloride Carbon Dioxide BUN Creatinine Glucose POC Glucose Lactic Acid Calcium Phosphorus Magnesium Ferritin Direct Bilirubin AST ALT Alkaline Phosphatase Lactate Dehydrogenase Total Creatine Kinase C-Reactive Protein Total Protein Albumin Triglycerides Arterial Blood Glucose Arterial Blood Ionized Calcium Urine Creatinine Urine Chloride Vancomycin Trough Coronavirus (PCR) Crossmatch 07/14/20 07/14/20 07/15/20 21:19 23:45 04:13 WBC RBC Hgb Hct MCHC RDW Plt Count Lymph % (Auto) [place] % (Auto) Lymph # (Auto) [place] # (Auto) Eos # (Auto) Seg Neutrophils % Seg Neuts % (Manual) Lymphocytes % (Manual) Monocytes % (Manual) Nucleated RBC % Seg Neutrophils # Seg Neutrophils # Man Lymphocytes # (Manual) Monocytes # (Manual) Eosinophils # (Manual) PT INR APTT D-Dimer Heparin Anti-Xa Level ABG pH POC ABG pCO2 POC ABG pO2 ABG pO2 ABG HCO3 ABG Hemoglobin 5.8 L 6.0 L ABG Oxyhemoglobin 93.8 L ABG Sodium 132.2 L 130.3 L ABG Potassium 5.5 H 5.8 H ABG Chloride ABG Glucose 118 H 122 H Carboxyhemoglobin Sodium Potassium Chloride Carbon Dioxide BUN Creatinine Glucose POC Glucose 126 H Lactic Acid Calcium Phosphorus Magnesium Ferritin Direct Bilirubin AST ALT Alkaline Phosphatase Lactate Dehydrogenase Total Creatine Kinase C-Reactive Protein Total Protein Albumin Triglycerides Arterial Blood Glucose 118 H 122 H Arterial Blood Ionized Calcium 4.3 L 4.2 L Urine Creatinine Urine Chloride Vancomycin Trough Coronavirus (PCR) Crossmatch 07/15/20 07/15/20 07/15/20 08:21 08:21 08:38 WBC 45.5 H* RBC 2.42 L Hgb 7.1 L Hct 21.5 L MCHC RDW 16.5 H Plt Count Lymph % (Auto) [place] % (Auto) Lymph # (Auto) [place] # (Auto) Eos # (Auto) Seg Neutrophils % Seg Neuts % (Manual) 89.0 H Lymphocytes % (Manual) 7.0 L Monocytes % (Manual) Nucleated RBC % Seg Neutrophils # Seg Neutrophils # Man 40.5 H Lymphocytes # (Manual) Monocytes # (Manual) 1.8 H Eosinophils # (Manual) PT 17.6 H INR 1.46 H APTT D-Dimer Heparin Anti-Xa Level ABG pH POC ABG pCO2 POC ABG pO2 ABG pO2 ABG HCO3 ABG Hemoglobin ABG Oxyhemoglobin ABG Sodium ABG Potassium ABG Chloride ABG Glucose Carboxyhemoglobin Sodium 131 L Potassium 6.0 H Chloride 94.6 L Carbon Dioxide 20 L BUN 116 H Creatinine 4.6 H Glucose 123 H POC Glucose Lactic Acid Calcium 7.6 L Phosphorus Magnesium Ferritin Direct Bilirubin AST ALT Alkaline Phosphatase Lactate Dehydrogenase Total Creatine Kinase C-Reactive Protein Total Protein Albumin Triglycerides Arterial Blood Glucose Arterial Blood Ionized Calcium Urine Creatinine Urine Chloride Vancomycin Trough Coronavirus (PCR) Crossmatch 07/15/20 07/15/20 07/15/20 11:29 17:23 18:52 WBC RBC Hgb Hct MCHC RDW Plt Count Lymph % (Auto) [place] % (Auto) Lymph # (Auto) [place] # (Auto) Eos # (Auto) Seg Neutrophils % Seg Neuts % (Manual) Lymphocytes % (Manual) Monocytes % (Manual) Nucleated RBC % Seg Neutrophils # Seg Neutrophils # Man Lymphocytes # (Manual) Monocytes # (Manual) Eosinophils # (Manual) PT INR APTT D-Dimer Heparin Anti-Xa Level ABG pH POC ABG pCO2 POC ABG pO2 ABG pO2 ABG HCO3 ABG Hemoglobin ABG Oxyhemoglobin ABG Sodium ABG Potassium ABG Chloride ABG Glucose Carboxyhemoglobin Sodium Potassium Chloride 97.9 L Carbon Dioxide BUN 78 H Creatinine 3.1 H Glucose 114 H POC Glucose 181 H 120 H Lactic Acid Calcium 7.3 L Phosphorus Magnesium Ferritin Direct Bilirubin AST ALT Alkaline Phosphatase Lactate Dehydrogenase Total Creatine Kinase C-Reactive Protein Total Protein Albumin Triglycerides Arterial Blood Glucose Arterial Blood Ionized Calcium Urine Creatinine Urine Chloride Vancomycin Trough Coronavirus (PCR) Crossmatch 07/15/20 07/16/20 07/16/20 18:52 01:10 03:38 WBC RBC Hgb 9.9 L 8.5 L Hct 29.8 L D 24.7 L MCHC RDW Plt Count Lymph % (Auto) [place] % (Auto) Lymph # (Auto) [place] # (Auto) Eos # (Auto) Seg Neutrophils % Seg Neuts % (Manual) Lymphocytes % (Manual) Monocytes % (Manual) Nucleated RBC % Seg Neutrophils # Seg Neutrophils # Man Lymphocytes # (Manual) Monocytes # (Manual) Eosinophils # (Manual) PT INR APTT D-Dimer Heparin Anti-Xa Level ABG pH 7.314 L POC ABG pCO2 48.5 H POC ABG pO2 58.9 L ABG pO2 ABG HCO3 ABG Hemoglobin 8.7 L ABG Oxyhemoglobin 86.7 L ABG Sodium 132.7 L ABG Potassium 5.2 H ABG Chloride ABG Glucose 99 H Carboxyhemoglobin Sodium Potassium Chloride Carbon Dioxide BUN Creatinine Glucose POC Glucose Lactic Acid Calcium Phosphorus Magnesium Ferritin Direct Bilirubin AST ALT Alkaline Phosphatase Lactate Dehydrogenase Total Creatine Kinase C-Reactive Protein Total Protein Albumin Triglycerides Arterial Blood Glucose 99 H Arterial Blood Ionized Calcium 3.9 L Urine Creatinine Urine Chloride Vancomycin Trough Coronavirus (PCR) Crossmatch 07/16/20 07/16/20 07/16/20 04:28 04:28 07:29 WBC 48.9 H* RBC 2.86 L Hgb 8.6 L 7.9 L Hct 25.4 L 24.4 L MCHC RDW 15.6 H Plt Count Lymph % (Auto) [place] % (Auto) Lymph # (Auto) [place] # (Auto) Eos # (Auto) Seg Neutrophils % Seg Neuts % (Manual) Lymphocytes % (Manual) Monocytes % (Manual) Nucleated RBC % Seg Neutrophils # Seg Neutrophils # Man Lymphocytes # (Manual) Monocytes # (Manual) Eosinophils # (Manual) PT INR APTT D-Dimer Heparin Anti-Xa Level ABG pH POC ABG pCO2 POC ABG pO2 ABG pO2 ABG HCO3 ABG Hemoglobin ABG Oxyhemoglobin ABG Sodium ABG Potassium ABG Chloride ABG Glucose Carboxyhemoglobin Sodium 136 L Potassium 5.4 H Chloride 95.0 L Carbon Dioxide BUN 85 H Creatinine 3.4 H Glucose 66 L POC Glucose Lactic Acid Calcium 6.8 L Phosphorus Magnesium Ferritin Direct Bilirubin AST ALT Alkaline Phosphatase Lactate Dehydrogenase Total Creatine Kinase C-Reactive Protein Total Protein Albumin Triglycerides Arterial Blood Glucose Arterial Blood Ionized Calcium Urine Creatinine Urine Chloride Vancomycin Trough Coronavirus (PCR) Crossmatch 07/16/20 07/16/20 07/16/20 11:52 18:06 18:08 WBC RBC Hgb 7.4 L Hct 22.5 L MCHC RDW Plt Count Lymph % (Auto) [place] % (Auto) Lymph # (Auto) [place] # (Auto) Eos # (Auto) Seg Neutrophils % Seg Neuts % (Manual) Lymphocytes % (Manual) Monocytes % (Manual) Nucleated RBC % Seg Neutrophils # Seg Neutrophils # Man Lymphocytes # (Manual) Monocytes # (Manual) Eosinophils # (Manual) PT INR APTT D-Dimer Heparin Anti-Xa Level ABG pH POC ABG pCO2 POC ABG pO2 ABG pO2 ABG HCO3 ABG Hemoglobin ABG Oxyhemoglobin ABG Sodium ABG Potassium ABG Chloride ABG Glucose Carboxyhemoglobin Sodium Potassium Chloride Carbon Dioxide BUN Creatinine Glucose POC Glucose 124 H 108 H Lactic Acid Calcium Phosphorus Magnesium Ferritin Direct Bilirubin AST ALT Alkaline Phosphatase Lactate Dehydrogenase Total Creatine Kinase C-Reactive Protein Total Protein Albumin Triglycerides Arterial Blood Glucose Arterial Blood Ionized Calcium Urine Creatinine Urine Chloride Vancomycin Trough Coronavirus (PCR) Crossmatch 07/17/20 07/17/20 07/17/20 03:27 15:25 15:25 WBC 46.2 H* RBC 2.05 L Hgb 6.1 L Hct 18.4 L* MCHC RDW 15.6 H Plt Count Lymph % (Auto) [place] % (Auto) Lymph # (Auto) [place] # (Auto) Eos # (Auto) Seg Neutrophils % Seg Neuts % (Manual) 87.0 H Lymphocytes % (Manual) 3.0 L Monocytes % (Manual) Nucleated RBC % Seg Neutrophils # Seg Neutrophils # Man 40.2 H Lymphocytes # (Manual) Monocytes # (Manual) 3.2 H Eosinophils # (Manual) PT 18.2 H INR 1.52 H APTT D-Dimer Heparin Anti-Xa Level ABG pH 7.313 L POC ABG pCO2 50.9 H POC ABG pO2 ABG pO2 ABG HCO3 ABG Hemoglobin 7.5 L ABG Oxyhemoglobin ABG Sodium 131.8 L ABG Potassium 4.6 H ABG Chloride ABG Glucose 105 H Carboxyhemoglobin Sodium Potassium Chloride Carbon Dioxide BUN Creatinine Glucose POC Glucose Lactic Acid Calcium Phosphorus Magnesium Ferritin Direct Bilirubin AST ALT Alkaline Phosphatase Lactate Dehydrogenase Total Creatine Kinase C-Reactive Protein Total Protein Albumin Triglycerides Arterial Blood Glucose 105 H Arterial Blood Ionized Calcium 3.9 L Urine Creatinine Urine Chloride Vancomycin Trough Coronavirus (PCR) Crossmatch 07/17/20 07/18/20 07/18/20 Unknown 03:10 05:06 WBC 37.9 H RBC 2.91 L Hgb 8.5 L Hct 25.6 L D MCHC RDW Plt Count Lymph % (Auto) [place] % (Auto) Lymph # (Auto) [place] # (Auto) Eos # (Auto) Seg Neutrophils % Seg Neuts % (Manual) Lymphocytes % (Manual) Monocytes % (Manual) Nucleated RBC % Seg Neutrophils # Seg Neutrophils # Man Lymphocytes # (Manual) Monocytes # (Manual) Eosinophils # (Manual) PT INR APTT D-Dimer Heparin Anti-Xa Level ABG pH POC ABG pCO2 POC ABG pO2 114.9 H ABG pO2 ABG HCO3 ABG Hemoglobin 8.6 L ABG Oxyhemoglobin ABG Sodium 130.6 L ABG Potassium 4.9 H ABG Chloride ABG Glucose Carboxyhemoglobin Sodium Potassium Chloride Carbon Dioxide BUN Creatinine Glucose POC Glucose Lactic Acid Calcium Phosphorus Magnesium Ferritin Direct Bilirubin AST ALT Alkaline Phosphatase Lactate Dehydrogenase Total Creatine Kinase C-Reactive Protein Total Protein Albumin Triglycerides Arterial Blood Glucose Arterial Blood Ionized Calcium 3.8 L Urine Creatinine Urine Chloride Vancomycin Trough Coronavirus (PCR) Crossmatch See Detail 07/18/20 07/19/20 07/19/20 05:06 00:06 03:57 WBC RBC Hgb Hct MCHC RDW Plt Count Lymph % (Auto) [place] % (Auto) Lymph # (Auto) [place] # (Auto) Eos # (Auto) Seg Neutrophils % Seg Neuts % (Manual) Lymphocytes % (Manual) Monocytes % (Manual) Nucleated RBC % Seg Neutrophils # Seg Neutrophils # Man Lymphocytes # (Manual) Monocytes # (Manual) Eosinophils # (Manual) PT INR APTT D-Dimer Heparin Anti-Xa Level ABG pH POC ABG pCO2 POC ABG pO2 ABG pO2 ABG HCO3 ABG Hemoglobin 8.6 L ABG Oxyhemoglobin ABG Sodium 130.4 L ABG Potassium ABG Chloride ABG Glucose Carboxyhemoglobin Sodium Potassium 5.4 H Chloride Carbon Dioxide BUN 79 H Creatinine 3.2 H Glucose POC Glucose 69 L Lactic Acid Calcium 6.9 L Phosphorus Magnesium Ferritin Direct Bilirubin AST ALT 58 H Alkaline Phosphatase Lactate Dehydrogenase Total Creatine Kinase C-Reactive Protein Total Protein 4.3 L D Albumin 1.7 L Triglycerides 306 H Arterial Blood Glucose Arterial Blood Ionized Calcium 3.9 L Urine Creatinine Urine Chloride Vancomycin Trough Coronavirus (PCR) Crossmatch 07/19/20 07/19/20 07/19/20 05:22 09:15 09:15 WBC 32.5 H RBC 2.57 L Hgb 7.8 L Hct 22.8 L MCHC RDW 15.3 H Plt Count Lymph % (Auto) [place] % (Auto) Lymph # (Auto) [place] # (Auto) Eos # (Auto) Seg Neutrophils % Seg Neuts % (Manual) Lymphocytes % (Manual) Monocytes % (Manual) Nucleated RBC % Seg Neutrophils # Seg Neutrophils # Man Lymphocytes # (Manual) Monocytes # (Manual) Eosinophils # (Manual) PT INR APTT D-Dimer Heparin Anti-Xa Level ABG pH POC ABG pCO2 POC ABG pO2 ABG pO2 ABG HCO3 ABG Hemoglobin ABG Oxyhemoglobin ABG Sodium ABG Potassium ABG Chloride ABG Glucose Carboxyhemoglobin Sodium 135 L Potassium Chloride 96.3 L Carbon Dioxide BUN 61 H Creatinine 2.8 H Glucose POC Glucose 64 L Lactic Acid Calcium 6.8 L Phosphorus Magnesium Ferritin Direct Bilirubin AST 54 H ALT 65 H Alkaline Phosphatase Lactate Dehydrogenase Total Creatine Kinase C-Reactive Protein Total Protein 4.3 L Albumin 1.8 L Triglycerides Arterial Blood Glucose Arterial Blood Ionized Calcium Urine Creatinine Urine Chloride Vancomycin Trough Coronavirus (PCR) Crossmatch 07/20/20 07/20/20 07/20/20 05:20 06:00 06:07 WBC 28.1 H RBC 2.53 L Hgb 7.7 L Hct 22.7 L MCHC RDW 15.5 H Plt Count Lymph % (Auto) [place] % (Auto) Lymph # (Auto) [place] # (Auto) Eos # (Auto) Seg Neutrophils % Seg Neuts % (Manual) Lymphocytes % (Manual) Monocytes % (Manual) Nucleated RBC % Seg Neutrophils # Seg Neutrophils # Man Lymphocytes # (Manual) Monocytes # (Manual) Eosinophils # (Manual) PT INR APTT D-Dimer Heparin Anti-Xa Level ABG pH POC ABG pCO2 POC ABG pO2 ABG pO2 ABG HCO3 ABG Hemoglobin 6.3 L ABG Oxyhemoglobin ABG Sodium 130.0 L ABG Potassium ABG Chloride ABG Glucose 114 H Carboxyhemoglobin Sodium Potassium Chloride Carbon Dioxide BUN Creatinine Glucose POC Glucose 110 H Lactic Acid Calcium Phosphorus Magnesium Ferritin Direct Bilirubin AST ALT Alkaline Phosphatase Lactate Dehydrogenase Total Creatine Kinase C-Reactive Protein Total Protein Albumin Triglycerides Arterial Blood Glucose 114 H Arterial Blood Ionized Calcium 3.9 L Urine Creatinine Urine Chloride Vancomycin Trough Coronavirus (PCR) Crossmatch 07/20/20 07/21/20 07/21/20 17:19 05:02 05:40 WBC 32.9 H RBC 2.78 L Hgb 8.5 L Hct 25.2 L MCHC RDW 15.7 H Plt Count 74 L Lymph % (Auto) [place] % (Auto) Lymph # (Auto) [place] # (Auto) Eos # (Auto) Seg Neutrophils % Seg Neuts % (Manual) Lymphocytes % (Manual) Monocytes % (Manual) Nucleated RBC % Seg Neutrophils # Seg Neutrophils # Man Lymphocytes # (Manual) Monocytes # (Manual) Eosinophils # (Manual) PT INR APTT D-Dimer Heparin Anti-Xa Level ABG pH POC ABG pCO2 POC ABG pO2 73.2 L ABG pO2 ABG HCO3 ABG Hemoglobin 9.1 L ABG Oxyhemoglobin 93.4 L ABG Sodium ABG Potassium 3.1 L ABG Chloride ABG Glucose 112 H Carboxyhemoglobin Sodium Potassium Chloride Carbon Dioxide BUN Creatinine Glucose POC Glucose 137 H Lactic Acid Calcium Phosphorus Magnesium Ferritin Direct Bilirubin AST ALT Alkaline Phosphatase Lactate Dehydrogenase Total Creatine Kinase C-Reactive Protein Total Protein Albumin Triglycerides Arterial Blood Glucose 112 H Arterial Blood Ionized Calcium Urine Creatinine Urine Chloride Vancomycin Trough Coronavirus (PCR) Crossmatch Chest x-ray: other (none today) Allied health notes reviewed: nursing
[2020-07-21] MEDS: AMPICILLIN/NS 2 GM/100 ML 2 GM/100 ML BAG IV SCH (13:10)
--- NOTE | 2020-07-21 13:28 | Progress Note ---
Assessment and Plan Cont present cardiac management. Overall poor prognosis. The patient has been seen in conjunction with Dr. Adarsh Santos who agrees with the a ssessment and plan of care. - Patient Problems (1) Acute respiratory failure with hypoxia Current Visit: Yes Status: Acute (2) Pneumonia due to COVID-19 virus Current Visit: Yes Status: Acute (3) Sepsis Current Visit: Yes Status: Acute Qualifiers: Severe sepsis acute organ dysfunction type: acute respiratory failure Severe sepsis shock status: with septic shock (4) Paroxysmal atrial fibrillation with rapid ventricular response Current Visit: Yes Status: Acute (5) Acute renal failure Current Visit: Yes Status: Acute (6) Elevated LFTs Current Visit: Yes Status: Acute (7) Anemia Current Visit: Yes Status: Acute Subjective Date of service: 07/21/20 Principal diagnosis: ARF; Septic Shock; COVID-19 PNA; Atrial fibrillation; Obesity Interval history: pt remains intubated, sedated. intermittently requiring vasopressor support. tele reviewed - in SR HR 70s. Objective Last Vital Signs Temp 97.1 F L 07/21/20 12:00 Pulse 77 07/21/20 12:46 Resp 16 07/21/20 12:46 BP 116/41 07/21/20 12:46 Pulse Ox 99 07/21/20 12:46 - Physical Examination General: Other (intubated, sedated ) Neck: Positive: neck supple Cardiac: Positive: Reg Rate and Rhythm, S1/S2 Lungs: Positive: Decreased Breath Sounds, Oxygen, Ventilated Respirations Neuro: Positive: Other (intubated, lethargic) Abdomen: Positive: Unremarkable Skin: Negative: Rash, Wound Extremities: Present: upper extr. pulses, lower extr. pulses, +1 Edema - Labs and Meds CBC 07/21/20 Range/Units 05:02 WBC 32.9 H (4.5-11.0) K/mm3 RBC 2.78 L (3.65-5.03) M/mm3 Hgb 8.5 L (11.8-15.2) gm/dl Hct 25.2 L (35.5-45.6) % Plt Count 74 L (140-440) K/mm3 - Imaging and Cardiology EKG: report reviewed, image reviewed Echo: report reviewed (TDS, EF 55-60%. ) - Telemetry EKG Rhythm: Sinus Rhythm - EKG Sinus rhythms and dysrhythmias: sinus tachycardia - Allied health notes Allied health notes reviewed: nursing
--- NOTE | 2020-07-21 14:04 | Progress Note ---
Assessment and Plan - Patient Problems (1) Acute renal failure Current Visit: Yes Status: Acute Qualifiers: Acute renal failure type: with acute tubular necrosis Qualified Code(s): N17.0 - Acute kidney failure with tubular necrosis Plan to address problem: Likely prerenal in nature secondary to new onset of COVID-19 pneumonia with worsening sepsis and hypotension. Concern for acute tubular necrosis. Has now been on HD and this am is off pressor support. No signs of renal recovery. Will continue to monitor. Overall prognosis remains poor at this time. He is on a inpatient MWF HD schedule and we will assess daily needs for isolated UF treatment in order to optimize volume status. (2) Pneumonia due to COVID-19 virus Current Visit: Yes Status: Acute Plan to address problem: Management per infectious disease recommendations. (3) Acute respiratory failure with hypoxia Current Visit: Yes Status: Acute Plan to address problem: Patient currently intubated at this time. Vent management per pulmonology recommendations. (4) Anemia Current Visit: Yes Status: Acute Qualifiers: Other causes of anemia: acute posthemorrhagic Plan to address problem: Per GI notes, EGD did not show evidence of active bleeding. Follow up further GI recommendations. Transfuse to maintain Hgb >7.0. (5) Hyperkalemia Current Visit: Yes Status: Acute Plan to address problem: Manage with HD. Subjective Date of service: 07/21/20 Principal diagnosis: ARF; Septic Shock; COVID-19 PNA; Atrial fibrillation; Obesity Interval history: No acute changes, had HD with UF 4L and tolerated well. Remains off pressors this afternoon. Objective - Exam Narrative Exam: Not directly examined in order to preserve PPE. - Vital Signs Vital signs: Vital Signs - 12hr 07/21/20 07/21/20 07/21/20 02:15 02:30 02:45 Temperature Pulse Rate 88 93 H 84 Pulse Rate [ From Monitor] Respiratory 13 12 18 Rate Blood Pressure 155/58 140/65 145/66 O2 Sat by Pulse 98 99 99 Oximetry 07/21/20 07/21/20 07/21/20 03:00 03:15 03:30 Temperature Pulse Rate 82 82 80 Pulse Rate [ From Monitor] Respiratory 19 12 12 Rate Blood Pressure 124/52 114/48 104/43 O2 Sat by Pulse 99 99 100 Oximetry 07/21/20 07/21/20 07/21/20 03:45 03:52 04:00 Temperature 97.1 F L Pulse Rate 78 75 Pulse Rate [ 75 From Monitor] Respiratory 12 11 L Rate Blood Pressure 113/49 109/50 O2 Sat by Pulse 100 100 Oximetry 07/21/20 07/21/20 07/21/20 04:15 04:31 04:45 Temperature Pulse Rate 73 87 82 Pulse Rate [ From Monitor] Respiratory 13 9 L 26 H Rate Blood Pressure 114/49 140/82 157/66 O2 Sat by Pulse 100 93 97 Oximetry 07/21/20 07/21/20 07/21/20 05:01 05:15 05:28 Temperature Pulse Rate 93 H 82 81 Pulse Rate [ From Monitor] Respiratory 14 18 Rate Blood Pressure 151/64 138/60 150/57 O2 Sat by Pulse 98 97 98 Oximetry 07/21/20 07/21/20 07/21/20 05:30 05:45 06:00 Temperature Pulse Rate 82 82 81 Pulse Rate [ From Monitor] Respiratory 27 H 23 16 Rate Blood Pressure 144/60 150/61 128/50 O2 Sat by Pulse 98 99 100 Oximetry 07/21/20 07/21/20 07/21/20 06:15 06:30 06:45 Temperature Pulse Rate 82 84 82 Pulse Rate [ From Monitor] Respiratory 23 26 H 21 Rate Blood Pressure 126/53 146/61 149/59 O2 Sat by Pulse 99 100 100 Oximetry 07/21/20 07/21/20 07/21/20 07:00 07:15 07:30 Temperature Pulse Rate 79 83 80 Pulse Rate [ From Monitor] Respiratory 27 H 28 H 26 H Rate Blood Pressure 145/63 135/62 129/57 O2 Sat by Pulse 100 99 100 Oximetry 07/21/20 07/21/20 07/21/20 07:45 08:00 08:15 Temperature 97.4 F L Pulse Rate 77 90 83 Pulse Rate [ 85 From Monitor] Respiratory 26 H 15 17 Rate Blood Pressure 138/64 144/71 143/63 O2 Sat by Pulse 100 100 100 Oximetry 07/21/20 07/21/20 07/21/20 08:30 08:43 08:45 Temperature Pulse Rate 82 77 86 Pulse Rate [ From Monitor] Respiratory 24 15 Rate Blood Pressure 145/65 144/84 144/84 O2 Sat by Pulse 99 99 99 Oximetry 07/21/20 07/21/20 07/21/20 09:00 09:15 09:30 Temperature Pulse Rate 75 80 86 Pulse Rate [ From Monitor] Respiratory 27 H 24 29 H Rate Blood Pressure 125/50 118/51 131/70 O2 Sat by Pulse 100 100 98 Oximetry 07/21/20 07/21/20 07/21/20 09:45 10:00 10:15 Temperature Pulse Rate 78 77 75 Pulse Rate [ From Monitor] Respiratory 21 16 13 Rate Blood Pressure 114/51 114/44 O2 Sat by Pulse 99 98 99 Oximetry 07/21/20 07/21/20 07/21/20 10:30 10:45 11:00 Temperature Pulse Rate 78 74 77 Pulse Rate [ From Monitor] Respiratory 18 14 19 Rate Blood Pressure 121/52 117/48 107/44 O2 Sat by Pulse 99 99 100 Oximetry 07/21/20 07/21/20 07/21/20 11:15 11:30 11:43 Temperature Pulse Rate 82 78 79 Pulse Rate [ From Monitor] Respiratory 18 21 Rate Blood Pressure 125/47 132/61 132/61 O2 Sat by Pulse 98 99 100 Oximetry 07/21/20 07/21/20 07/21/20 11:45 12:00 12:16 Temperature 97.1 F L Pulse Rate 84 75 73 Pulse Rate [ 85 From Monitor] Respiratory 14 26 H 13 Rate Blood Pressure 121/48 126/55 120/56 O2 Sat by Pulse 99 100 99 Oximetry 07/21/20 07/21/20 12:30 12:46 Temperature Pulse Rate 74 77 Pulse Rate [ From Monitor] Respiratory 25 H 16 Rate Blood Pressure 123/72 116/41 O2 Sat by Pulse 100 99 Oximetry - Lab 07/21/20 05:02 07/19/20 09:15 Most recent lab results ABG pH 7.397 (7.320-7.450) 07/21/20 05:40 ABG pCO2 56.4 mm Hg 07/05/20 04:30 ABG pO2 151.9 mm Hg (80.0-90.0) H 07/05/20 04:30 ABG HCO3 26.8 mmol/L (20.0-26.0) H 07/05/20 04:30 ABG O2 Saturation 94.3 (0-100) 07/21/20 05:40 Calcium 6.8 mg/dL (8.4-10.2) L 07/19/20 09:15 Phosphorus 9.40 mg/dL (2.5-4.5) H 06/30/20 03:50 Magnesium 2.70 mg/dL (1.7-2.3) H 06/18/20 20:33 Urine Creatinine 192.4 mg/dL (0.1-20.0) H 06/18/20 15:00 Urine Sodium 28 mmol/L 06/18/20 15:00 Medications & Allergies - Medications Allergies/Adverse Reactions: Allergies No Known Allergies Allergy (Unverified 06/17/20 14:24) Home Medications: Home Medications Medication Instructions Recorded Confirmed Last Taken Type Losartan/Hydrochlorothiazide 1 each PO QDAY 06/19/20 06/19/20 Unknown History [Losartan-Hctz 100-25 mg Tab] amLODIPine [Norvasc] 5 mg PO DAILY 06/19/20 06/19/20 Unknown History Active Medications: Generic Name Dose Route Start Last Admin Trade Name Freq PRN Reason Stop Dose Admin Acetaminophen 650 mg 06/17/20 14:17 07/03/20 09:16 Acetaminophen 325 Mg Tab PO 650 mg Q4H PRN Administration Pain MILD(1-3)/Fever >100.5/ROBERTS Albuterol 2.5 mg 07/19/20 12:15 Albuterol 2.5 Mg/3 Ml Nebu IH Q6HRT PRN Shortness Of Breath Amiodarone HCl 200 mg 07/19/20 14:00 07/21/20 09:31 Amiodarone 200 Mg Tab PO 200 mg BID CONNOR Administration Lipase/Protease/Amylase 1 each 06/19/20 12:15 Lipase 10,500/Protease 25,000/Amylase 43,750 (Units) Dr Kulkarni FEEDTUBE PRN PRN For Clogged Feeding Tube Ascorbic Acid 250 mg 06/17/20 22:00 07/21/20 09:31 Ascorbic Acid 250 Mg Tab PO 250 mg BID CONNOR Administration Cholecalciferol 1,000 unit 06/18/20 10:00 07/21/20 09:30 Cholecalciferol (Vit D3) 1000 Unit (25 Mcg) Tab PO 1,000 unit DAILY CONNOR Administration Docusate Sodium 100 mg 06/23/20 15:00 07/21/20 09:31 Docusate Sodium 100 Mg/10 Ml Oral Liqd FEEDTUBE 100 mg BID CONNOR Administration Fentanyl 50 mcg 06/18/20 01:02 07/09/20 00:20 Fentanyl 100 Mcg/2 Ml Inj IV 50 mcg Q10MIN PRN Administration ANALGESIA Heparin Sodium (Porcine) 5,000 unit 06/22/20 12:53 06/30/20 13:36 Heparin 10,000 Unit/1 Ml Vial IV 5,000 unit PAM PRN Administration hemodialysis Hydrophilic Ointment 1 applic 06/17/20 22:52 07/12/20 20:22 Lip Therapy Vaseline TP 1 applic Q2HR PRN Administration Dry Lips Propofol 1,000 mg in 100 mls @ 3.402 mls/hr 06/18/20 01:00 07/21/20 07:35 Diprivan 10 Mg/Ml IV 10 mcg/kg/min TITR CONNOR 6.804 mls/hr Administration Protocol 5 MCG/KG/MIN Fentanyl Citrate 2,000 mcg in 100 mls @ 8 mls/hr 06/18/20 02:00 07/21/20 07:35 Fentanyl Drip Premix IV 2 mcg/kg/hr TITR CONNOR 16 mls/hr Administration Protocol 1 MCG/KG/HR Norepinephrine 4 mg in 250 mls @ 7.5 mls/hr 07/08/20 02:06 07/21/20 06:49 Levophed Drip 4 Mg/Ns 250 Ml IV 0 mcg/min TITR CONNOR 0 mls/hr Titration Protocol 2 MCG/MIN Vasopressin 20 unit/ Sodium 101 mls @ 9.09 mls/hr 07/11/20 11:00 07/18/20 15:36 Chloride IV 0 units/min TITR CONNOR 0 mls/hr Titration Protocol 0.03 UNITS/MIN Sodium Chloride 100 mls @ 999 mls/hr 07/19/20 08:22 Nacl 0.9% IV PAM PRN Hypotension Ampicillin Sodium 2 gm in 100 mls @ 100 mls/hr 07/21/20 12:00 Ampicillin/Ns 2 Gm/100 Ml IV 08/02/20 12:59 Q12H [facility] Protocol Insulin Human Regular 0 units 06/18/20 12:00 07/21/20 12:53 Insulin Regular, Human 100 Units/1 Ml SUB-Q Not Given Q6HR [facility] Protocol Multi-Ingred Cream/Lotion/Oil/Oint 1 applic 06/17/20 22:52 07/12/20 20:22 Mineral Oil/Petrolatum, White Ophth Oint 3.5 Gm OU 1 applic Q4HR PRN Administration Dry Eye(s) Ondansetron HCl 4 mg 06/17/20 14:17 Ondansetron 4 Mg/2 Ml Inj IV Q8H PRN Nausea And Vomiting Pantoprazole Sodium 40 mg 07/16/20 22:00 07/21/20 09:30 Pantoprazole 40 Mg Inj IV 40 mg BID CONNOR Administration Polyethylene Glycol 17 gm 06/23/20 15:00 07/21/20 09:39 Polyethylene Glycol 3350 17 Gm Powder PO 17 gm QDAY CONNOR Administration Quetiapine Fumarate 200 mg 06/28/20 13:00 07/21/20 09:30 Quetiapine 200 Mg Tab PO 200 mg BID CONNOR Administration Simple Syrup 15 ml 06/19/20 12:15 07/19/20 00:48 Simple Syrup 15 Ml FEEDTUBE 15 ml PRN PRN Administration Hypoglycemia Simple Syrup 30 ml 06/19/20 12:15 07/19/20 06:04 Simple Syrup 15 Ml FEEDTUBE 30 ml PRN PRN Administration Hypoglycemia Sodium Bicarbonate 325 mg 06/19/20 12:15 07/11/20 20:00 Sodium Bicarbonate 325 Mg Tab FEEDTUBE 325 mg PRN PRN Administration For Clogged Feeding Tube Sodium Bicarbonate 650 mg 07/04/20 10:00 07/21/20 08:40 Sodium Bicarbonate 650 Mg Tab PO 650 mg TID CONNOR Administration Sodium Chloride 10 ml 06/17/20 22:00 07/21/20 09:38 Sodium Chloride 0.9% 10 Ml Flush Syringe IV 10 ml BID CONNOR Administration Sodium Chloride 10 ml 06/17/20 14:17 Sodium Chloride 0.9% 10 Ml Flush Syringe IV PRN PRN LINE FLUSH Sodium Hypochlorite 1 applic 07/20/20 10:00 07/21/20 09:32 Sodium Hypochlorite, Dakin's 1/2 Strength (0.25%) 473 Ml Topical Soln TP 1 applicatio BID CONNOR Administration Sodium Polystyrene Sulfonate 15 gm 07/03/20 11:19 07/05/20 10:36 Sodium Polystyrene 15 Gm/60 Ml Oral Liqd PO 15 gm Q6HR PRN Administration Hyperkalemia Zinc Sulfate 220 mg 06/17/20 22:00 07/21/20 09:30 Zinc Sulfate 220 Mg Cap PO 220 mg BID CONNOR Administration
--- NOTE | 2020-07-21 16:58 | Progress Note ---
Assessment and Plan Assessment and plan: -Vasopressor support (CCM and ID consulted, appreciate recommendations) -S/p dexamethasone and remdesivir therapy, contact/droplet isolation, remains on ventilation (wean as tolerated), vitamin C/vitamin D/zinc, anticoagulation per protocol, trend inflammatory markers -Wean mechanical ventilation as tolerated, VAP bundle -HD per nephrology -Transfuse for hemaglobin less than 7, s/p 9 units PRBC during stay -Per GI: Consider nuclear bleeding scan when stable -Nephrology, ID, heme-onc, GI , cardiology consulted,appreciate recommendations -BCR-ABL mutation testing pending -Patient is off pressors and his antibiotics were deescalated to ampicillin (renally dosed) -Per infectious disease: Unless repeat blood cultures turn positive is no need to exchange/remove lines which were placed with positive blood cultures -Monitor leukocytosis and fevers -Hold systemic anticoagulation in setting of severe anemia -Amiodarone for rate control -s/p debridement by Dr. Kirk, WOCN consulted, WC per nursing -CTA abdomen/pelvis shows no active intermittent GI bleed, bibasilar pneumonia with pneumomediastinum and subcutaneous emphysema in the chest, possible mild infectious or inflammatory colitis, diffuse anasarca within the subcutaneous tissues of the pelvis and upper thighs, bilateral airspace consolidation with air bronchograms and patchy groundglass airspace disease demonstrated throughout the lung bases with no pneumothorax or pleural effusion DVT prophylaxis: GI prophylaxis, heparin subcu, SCDs to bilateral LE while in bed Disposition: ICU, ?placement ?trach/peg ?Ltach The high probability of a clinically significant, sudden or life threatening deterioration of the [multi] system(s) required my full and direct attention, intervention and personal management. The aggregate critical care time was [35] minutes. This time is in addition to time spent performing reported procedures but includes the following: [x] Data Review and interpretation [x] Patient assessment and monitoring of vital signs [x] Documentation [x] Medication orders and management History Interval history: 59-year-old white male who was admitted for pneumonia secondary to Covid with associated respiratory failure and sepsis. Severe septic shock COVID-19 pneumonia Sacral wound, stage 4 Acute metabolic encephalopathy Acute hypoxic respiratory failure Enterococcus bacteremia Pneumomediastinum Acute kidney injury likely secondary to acute tubular necrosis which progressed to hemodialysis SVT/proximal atrial fibrillation Elevated LFTs Anemia likely due to severe sepsis had declining renal function Morbid obesity Leukocytosis Hyperkalemia Hypocalcemia Hypoalbuminemia 06/18: Patient got intubated overnight. Patient was placed on BiPAP to maintain oxygenation with 100% FiO2 but apparently he found to take off his argueta which made his oxygen saturation go down at 60s/50s and patient was found altered mental status. Code met was called immediately. Patient was transferred to ICU and intubated, patient currently on 2 pressors, intubated with 100% FiO2, renal function noted to be decline, nephrology consulted. Discussed with [facility] physician Dr. Thompson and requested call back on Saturday. Poor prognosis, continue to monitor with aggressive supportive care. Also called family/ to update clinical status. 06/19: Repeat COVID test was positive. cont cefepime, remdesivir per ID recommendation. follow inflammatory markers, cbc, bmp. placed on heparin drip for atrial fib 06/20: Remains on mechanical ventilation, on 2 pressors, on heparin drip. discussed with and daughter by phone. Renal function declining. cont supportive care for now. 06/21: Renal function cont to decline, urine outpt sig decreased. started on lasix 80mg BID, plan to follow urine output, if no improvement patient need to start on HD. called and daughter today. updated all clinical details 06/22: Renal function continues to decline with uremia and hyperkalemia. Will need to proceed with hemodialysis. Nephrology discussed with the family and they agrees for the hemodialysis. Patient remains on pressor support and mechanical ventilation. Vas-Cath placed today by vascular started on hemodialysis today. 06/23: 2nd round of HD today, remains on 2 pressors. per RN not tolerating TF, has no record of BM since 06/18. start on stool softner. follow cbc/bmp. updated family ( and daughter) by phone -all question answered to best of my know ledge and to their satisfaction. Patient remains critically ill with a very poor prognosis. 06/24: Continue supportive care, Very poor prognosis, Technology Strategist to discuss with family in am due to the futility of the condition. 06/25/2020 continue supportive care very poor prognosis 06/26/2020 continue supportive care very poor prognosis family updated 06/27/2020 continue supportive care and weaning if possible 06/28/2020 continue supportive care, talk with at length 06/29: Resumed care. K level persistently high. give one dose of bicarbonate, plan for HD today, recheck k after HD. updated family by phone 06/30: updated family by phone. Patient remains on amiodarone drip and vasopressin. Getting HD at the bedside. Tolerating tube feeding at low rate. 07/01: Hb dropped to 6.4 today, transfuse one unit PRBC. patient is off pressor today, remains on amioderone. cont to monitor 07/02: Called patient and updated clinical details. Patient remains critically ill, still intubated. Patient's oxygen requirement and PEEP pressure has went down. Continue weaning protocol per critical care recommendation. Patient remains off pressor. Continue to wean off from amiodarone and plan to rate control with p.o. medications. Tolerating tube feeding. H&H stable today. Order for stool for occult blood. Monitor H&H and BMP. Continue to follow clinically 07/03: discussed with [facility] physician today. Patient back on 100percent Fio2 since last night. planned for emergent Hd today. spiked fever, start IV Cefepime + Vancomycin renally dosed. Restarted Levophed today, remains on amiodarone drip. Patient family was updated by critical care attending today. 07/04: Patient has hemodialysis yesterday and also plan for today for volume overload and pulmonary edema. Patient currently on 80% FiO2. Remains on Levophed and amiodarone. Hemoglobin dropped to 6.7 without any evidence of active bleeding. LFTs remain stable. Repeat Covid test on 06/30 and 07/03 esperanza ins positive. Will transfuse another unit of packed RBC today. Called family for update -explained family that patient is critically ill with very poor prognosis. 07/05: Patient on 70% FiO2 with PEEP of 14. h/h stable after transfusion. hyperkalemia improved, cont sodiumbicarbonate pill with TF. follow BMP. off levophed today, remains on amioderone. poor prognosis. 07/06: Patient remains on amiodarone drip, maintaining BP without any pressor. FiO2 requirement trended down to 60% with PEEP of 14. Continue to follow clinically. Plan to wean off amiodarone drip as tolerated. Wean off from s edation as tolerated. Updated family. Patient remains critically ill with poor prognosis. 07/07: Called family for update. Off amiodarone drip today, patient also off pressor. FiO2 requirement trended up again to 80-100%. Continue to provide supportive care, monitor clinically. Having difficulty to wean off from the vent support. Patient is persistently positive for COVID-19 and COVID-19 ant ibody is nonreactive. Patient remains critically ill with very poor prognosis. 07/08: Continue supportive care. [employer] account representative and nitroglycerin separator operator input noted. Prognosis remains guarded to poor. Management per team. Critical care time 35-minute 07/09/20 patient is tachycardic. Heart rate 121. Hemoglobin 7.3. Patient is having hemodialysis. Continue supportive care. Patient having difficulty to wean off from the vent support. Prognosis is poor. Nephrology and cardiology follow-up. Recheck CBC BMP in the morning. Continue current management. 07/10/20 patient seen and examined, remains on full ventilator patient is doing better. Patient is off pressor. heart rate 123. Hemoglobin 6.8 and hematocrit 20.7. WBC is 18.1. Continue supportive care. Patient having difficulty to wean off from the vent support. We will started on Zosyn 4.5 g IV every 8 hours. Will transfuse 1 unit of packed red blood cell. Prognosis is poor. Nephrology and cardiology follow up. Recheck CBC BMP in the morning 07/11: remains off vasopressor, h/h appropriately responded to 1 unit PRBC. HD today. Remain on MV with fiO2 at 70%. peep 10. No acute events reported overnight. 07/12: Patient remains in atrial fibrillation on the campus monitor, vasopressor support with Levophed and vasopressin, sedated with fentanyl and propofol. Vent settings: CMV 500/25/14/0.60. Patient remains hypercarbic on ABG 07/13: Patient remains on vasopressin, fentanyl and propofol with rectal tube in place. This morning some examination patient was on assist control 25/500/14/0.60. Patient received hemodialysis today. No acute events reported overnight. 07/14: Remains on vasopressin, fentanyl and propofol with tube in place. Rectal tube in place with noted blood clots, GI consulted, on 07/13 H/H dropped from 8.7/27 to 7.4/22 and anticoagulation discontinued. This morning I spoke to his who still wishes for the patient to remain a full code despite update with continued use of vasopressor (vasopressin), current ventilatory support (CMV 500/25/14/0.60) and recent development of rectal bleeding. Patient's family requests an update from [facility] and GI. Cardio changed amio from PO to IV given elevated HR 07/15: Today the patient received a total of 5 units of PRBC and is still having bleeding through his rectal tube. CTA abdomen/pelvis is pending, patient remains on Levophed, fentanyl, propofol, vasopressin and received hemodialysis today. He was also hyperkalemic today to 6 and he received insulin and D50. Extensive conversation with family conducted by [facility] and hospitalist and his and 2 daughters did visit him today at the bedside. 07/16: Continues with full ventilatory support. FMS still inplace with some loose bloody stool. Still on multiple pressors, Bilateral swollen and generalized anascara. Monitor H/H and transfuse as needed. Monitor K level. Discussed with family at bedside yesterday. 07/17: Continue supportive care, transfusion blood possible in am with HD, continue abx, very poor prognosis, blood pressure still labile. Discussed with nurse at bedside 07/18: CTA abdomen/pelvis completed, antibiotics changed to Zosyn per infectious disease, remains on mechanical ventilation 450/25/12/0.55 continue amiodarone drip for 24 more hours, blood culture grew Enterococcus. Remains sedated on propofol and fentanyl. Not on vasopressor support today 07/19: No acute events reported overnight, remains sedated with fentanyl and propofol and off vasopressor therapy today. 07/20: s/p debridement with surgery today, remains on fentanyl, propofol, Levophed and current vent settings 450/25/10/0.45. Patient will be transferred to a bariatric bed once available. 07/21: Continue current management, wean ventilator as tolerated, IV antibiotics deescalated to ampicillin. Per infectious disease no need to exchange/remove lines unless repeat blood cultures turn positive. The time my examination patient was sedated on fentanyl and propofol and remains off vasopressor support. Hospitalist Physical - Physical exam Narrative exam: General appearance: Present: mild distress, well-nourished - EENT ENT: ulcerations - Respiratory Respiratory effort: normal Respiratory: bilateral: diminished - Cardiovascular Rhythm: regular Heart Sounds: Present: S1 & S2. Absent: systolic murmur, diastolic murmur - Extremities Extremities: no ischemia, pulses intact, pulses symmetrical, No edema, normal temperature, normal color, Full ROM Peripheral Pulses: within normal limits - Abdominal General gastrointestinal: soft, non-tender, non-distended, normal bowel sounds - Integumentary Integumentary: Present: dry - Psychiatric Psychiatric: other (sedated) - Neurologic Neurologic: other (sedated) - Constitutional Vitals: Temp Pulse Resp BP Pulse Ox 97.1 F L 77 16 116/41 99 07/21/20 12:00 07/21/20 15:16 07/21/20 12:46 07/21/20 15:16 07/21/20 15:16 General appearance: Present: mild distress, well-nourished HEART Score - HEART Score Troponin: Troponin T < 0.010 ng/mL (0.00-0.029) 06/17/20 12:33 Results - Labs CBC & Chem 7: 07/21/20 05:02 07/19/20 09:15 Labs: Laboratory Last Values WBC 32.9 K/mm3 (4.5-11.0) H 07/21/20 05:02 RBC 2.78 M/mm3 (3.65-5.03) L 07/21/20 05:02 Hgb 8.5 gm/dl (11.8-15.2) L 07/21/20 05:02 Hct 25.2 % (35.5-45.6) L 07/21/20 05:02 MCV 91 fl (84-94) 07/21/20 05:02 MCH 31 pg (28-32) 07/21/20 05:02 MCHC 34 % (32-34) 07/21/20 05:02 RDW 15.7 % (13.2-15.2) H 07/21/20 05:02 Plt Count 74 K/mm3 (140-440) L 07/21/20 05:02 Lymph % (Auto) 5.6 % (13.4-35.0) L 07/12/20 03:40 Page % (Auto) 7.4 % (0.0-7.3) H 07/12/20 03:40 Eos % (Auto) 2.8 % (0.0-4.3) 07/12/20 03:40 Baso % (Auto) 0.3 % (0.0-1.8) 07/12/20 03:40 Lymph # (Auto) 1.4 K/mm3 (1.2-5.4) 07/12/20 03:40 Page # (Auto) 1.8 K/mm3 (0.0-0.8) H 07/12/20 03:40 Eos # (Auto) 0.7 K/mm3 (0.0-0.4) H 07/12/20 03:40 Baso # (Auto) 0.1 K/mm3 (0.0-0.1) 07/12/20 03:40 Add Manual Diff Complete 07/17/20 15:25 Total Counted 100 07/17/20 15:25 Seg Neutrophils % Pharmacy Resident 07/17/20 15:25 Seg Neuts % (Manual) 87.0 % (40.0-70.0) H 07/17/20 15:25 Band Neutrophils % 2 % 07/17/20 15:25 Lymphocytes % (Manual) 3.0 % (13.4-35.0) L 07/17/20 15:25 Reactive Lymphs % (Man) 1.0 % 06/23/20 04:00 Monocytes % (Manual) 7.0 % (0.0-7.3) 07/17/20 15:25 Eosinophils % (Manual) 4.0 % (0.0-4.3) 07/11/20 06:52 Metamyelocytes % 1 % 07/17/20 15:25 Myelocytes % 0 % 07/17/20 15:25 Promyelocytes % 0 % 07/17/20 15:25 Nucleated RBC % Not Reportable 07/17/20 15:25 Seg Neutrophils # 20.4 K/mm3 (1.8-7.7) H 07/12/20 03:40 Seg Neutrophils # Man 40.2 K/mm3 (1.8-7.7) H 07/17/20 15:25 Band Neutrophils # 0.9 K/mm3 07/17/20 15:25 Lymphocytes # (Manual) 1.4 K/mm3 (1.2-5.4) 07/17/20 15:25 Abs React Lymphs (Man) 0.0 K/mm3 07/17/20 15:25 Monocytes # (Manual) 3.2 K/mm3 (0.0-0.8) H 07/17/20 15:25 Eosinophils # (Manual) 0.0 K/mm3 (0.0-0.4) 07/17/20 15:25 Basophils # (Manual) 0.0 K/mm3 (0.0-0.1) 07/17/20 15:25 Metamyelocytes # 0.5 K/mm3 07/17/20 15:25 Myelocytes # 0.0 K/mm3 07/17/20 15:25 Promyelocytes # 0.0 K/mm3 07/17/20 15:25 Blast Cells # 0.0 K/mm3 07/17/20 15:25 Pathologist Review 07/17/20 15:25 WBC Morphology Not Reportable 07/17/20 15:25 Hypersegmented Neuts Not Reportable 07/17/20 15:25 Hyposegmented Neuts Not Reportable 07/17/20 15:25 Hypogranular Neuts Not Reportable 07/17/20 15:25 Smudge Cells Not Reportable 07/17/20 15:25 Toxic Granulation Not Reportable 07/17/20 15:25 Toxic Vacuolation Not Reportable 07/17/20 15:25 Dohle Bodies Not Reportable 07/17/20 15:25 Pelger-Huet Anomaly Not Reportable 07/17/20 15:25 Carlito Rods Not Reportable 07/17/20 15:25 Platelet Estimate Not Reportable 07/17/20 15:25 Clumped Platelets Not Reportable 07/17/20 15:25 Plt Clumps, EDTA Not Reportable 07/17/20 15:25 Large Platelets Not Reportable 07/17/20 15:25 Giant Platelets Not Reportable 07/17/20 15:25 Platelet Satelliting Not Reportable 07/17/20 15:25 Plt Morphology Comment Not Reportable 07/17/20 15:25 RBC Morphology Not Reportable 07/17/20 15:25 Dimorphic RBCs Not Reportable 07/17/20 15:25 Polychromasia Not Reportable 07/17/20 15:25 Hypochromasia Not Reportable 07/17/20 15:25 Poikilocytosis Not Reportable 07/17/20 15:25 Anisocytosis Rare 07/17/20 15:25 Microcytosis Rare 07/17/20 15:25 Macrocytosis Not Reportable 07/17/20 15:25 Spherocytes Not Reportable 07/17/20 15:25 Pappenheimer Bodies Not Reportable 07/17/20 15:25 Sickle Cells Not Reportable 07/17/20 15:25 Target Cells Not Reportable 07/17/20 15:25 Tear Drop Cells Not Reportable 07/17/20 15:25 Ovalocytes Not Reportable 07/17/20 15:25 Stomatocytes Rare 07/10/20 03:55 Helmet Cells Not Reportable 07/17/20 15:25 Brothers[place] Bodies Not Reportable 07/17/20 15:25 [place] Rings Not Reportable 07/17/20 15:25 Livier Cells Not Reportable 07/17/20 15:25 Bite Cells Not Reportable 07/17/20 15:25 Crenated Cell Not Reportable 07/17/20 15:25 Elliptocytes Not Reportable 07/17/20 15:25 Acanthocytes (Spur) Not Reportable 07/17/20 15:25 Rouleaux Not Reportable 07/17/20 15:25 Hemoglobin C Crystals Not Reportable 07/17/20 15:25 Schistocytes Not Reportable 07/17/20 15:25 Malaria parasites Not Reportable 07/17/20 15:25 Victoriano Bodies Not Reportable 07/17/20 15:25 Hem Pathologist Commnt Sent to pathology 07/17/20 15:25 PT 18.2 Sec. (12.2-14.9) H 07/17/20 15:25 INR 1.52 (0.87-1.13) H 07/17/20 15:25 APTT 28.5 Sec. (24.2-36.6) 06/26/20 05:47 Fibrinogen 419 mg/dl (211-480) 07/15/20 08:21 D-Dimer 6608.00 ng/mlDDU (0-234) H 07/03/20 14:50 Heparin Anti-Xa Level < 0.10 U.I./ml (0.3-0.7) L 06/26/20 01:30 ABG pH 7.397 (7.320-7.450) 07/21/20 05:40 POC ABG pCO2 44.6 mmHg (32.0-48.0) 07/21/20 05:40 ABG pCO2 56.4 mm Hg 07/05/20 04:30 POC ABG pO2 73.2 mmHg (83-108) L 07/21/20 05:40 ABG pO2 151.9 mm Hg (80.0-90.0) H 07/05/20 04:30 POC ABG HCO3 26.8 07/21/20 05:40 ABG HCO3 26.8 mmol/L (20.0-26.0) H 07/05/20 04:30 ABG O2 Saturation 94.3 (0-100) 07/21/20 05:40 ABG O2 Content 5.0 (0.0-44) 07/04/20 05:20 POC ABG Base Excess 1.7 07/21/20 05:40 ABG Base Excess 0.1 mmol/L (-2.0-3.0) 07/05/20 04:30 ABG Hemoglobin 9.1 (12.0-17.5) L 07/21/20 05:40 ABG Oxyhemoglobin 93.4 (94-98) L 07/21/20 05:40 ABG Carboxyhemoglobin 1.7 % (0.0-5.0) 07/05/20 04:30 ABG Methemoglobin 0.3 (0.0-1.5) 07/21/20 05:40 ABG Sodium 137.2 mmol/L (136.0-145.0) 07/21/20 05:40 ABG Potassium 3.1 mmol/L (3.40-4.50) L 07/21/20 05:40 ABG Chloride 105.0 mmol/L (98-107) 07/21/20 05:40 ABG Glucose 112 mg/dL (65-95) H 07/21/20 05:40 Oxyhemoglobin 96.5 % (95.0-99.0) 07/05/20 04:30 Carboxyhemoglobin 0.7 (0.5-1.5) 07/21/20 05:40 FiO2 50 07/20/20 06:00 FiO2 % 45 07/21/20 05:40 Sodium 135 mmol/L (137-145) L 07/19/20 09:15 Potassium 4.2 mmol/L (3.6-5.0) D 07/19/20 09:15 Chloride 96.3 mmol/L (98-107) L 07/19/20 09:15 Carbon Dioxide 25 mmol/L (22-30) 07/19/20 09:15 Anion Gap 18 mmol/L 07/19/20 09:15 BUN 61 mg/dL (9-20) H 07/19/20 09:15 Creatinine 2.8 mg/dL (0.8-1.3) H 07/19/20 09:15 Estimated GFR 28 ml/min 07/19/20 09:15 BUN/Creatinine Ratio 22 % 07/19/20 09:15 Glucose 87 mg/dL (75-100) 07/19/20 09:15 POC Glucose 92 mg/dL (70-105) 07/21/20 11:54 Lactic Acid 1.40 mmol/L (0.7-2.0) 07/13/20 08:48 Calcium 6.8 mg/dL (8.4-10.2) L 07/19/20 09:15 Phosphorus 9.40 mg/dL (2.5-4.5) H 06/30/20 03:50 Magnesium 2.70 mg/dL (1.7-2.3) H 06/18/20 20:33 Ferritin 1171.0 ng/mL (30.0-300.0) H 07/03/20 14:50 Total Bilirubin 0.40 mg/dL (0.1-1.2) 07/19/20 09:15 Direct Bilirubin 0.5 mg/dL (0-0.2) H 07/05/20 08:21 Indirect Bilirubin 0.1 mg/dL 07/05/20 08:21 AST 54 units/L (5-40) H 07/19/20 09:15 ALT 65 units/L (7-56) H 07/19/20 09:15 Alkaline Phosphatase 116 units/L (35-129) 07/19/20 09:15 Lactate Dehydrogenase 525 units/L (91-180) H 07/03/20 14:50 Total Creatine Kinase 618 units/L (55-170) H 06/29/20 Unknown Troponin T < 0.010 ng/mL (0.00-0.029) 06/17/20 12:33 C-Reactive Protein 31.50 mg/dL (0.00-1.30) H 07/03/20 14:50 Total Protein 4.3 g/dL (6.3-8.2) L 07/19/20 09:15 Albumin 1.8 g/dL (3.9-5) L 07/19/20 09:15 Albumin/Globulin Ratio 0.7 % 07/19/20 09:15 Triglycerides 306 mg/dL (2-149) H 07/18/20 05:06 Procalcitonin 6.05 ng/mL (<0.15) 07/13/20 06:59 Arterial Blood Glucose 112 mg/dL (65-95) H 07/21/20 05:40 Arterial Blood Ionized Calcium 4.8 mg/dL (4.6-5.3) 07/21/20 05:40 Urine Color Yellow (Yellow) 06/17/20 15:57 Urine Turbidity Clear (Clear) 06/17/20 15:57 Urine pH 6.0 (5.0-7.0) 06/17/20 15:57 Ur Specific [place] 1.019 (1.003-1.030) 06/17/20 15:57 Urine Protein 30 mg/dl mg/dL (Negative) 06/17/20 15:57 Urine Glucose (UA) Neg mg/dL (Negative) 06/17/20 15:57 Urine Ketones Neg mg/dL (Negative) 06/17/20 15:57 Urine Blood Sm (Negative) 06/17/20 15:57 Urine Nitrite Neg (Negative) 06/17/20 15:57 Ur Reducing Substances Not Reportable 06/17/20 15:57 Urine Bilirubin Neg (Negative) 06/17/20 15:57 Urine Ictotest Not Reportable 06/17/20 15:57 Urine Urobilinogen < 2.0 mg/dL (<2.0) 06/17/20 15:57 Ur Leukocyte Esterase Neg (Negative) 06/17/20 15:57 Urine WBC (Auto) 1.0 /HPF (0.0-6.0) 06/17/20 15:57 Urine RBC (Auto) 2.0 /HPF (0.0-6.0) 06/17/20 15:57 Urine Mucus Few /HPF 06/17/20 15:57 Urine Creatinine 192.4 mg/dL (0.1-20.0) H 06/18/20 15:00 Urine Sodium 28 mmol/L 06/18/20 15:00 Urine Chloride 31.1 mmolL (110-250) L 06/18/20 15:00 Nasal Screen MRSA (PCR) Negative (Negative) 06/19/20 10:38 Vancomycin Trough 22.7 ug/mL (5.0-20.0) H 06/20/20 08:25 Random Vancomycin 13.5 ug/mL (0-40.0) 07/16/20 07:17 Coronavirus (PCR) Positive (Negative) A 07/03/20 10:10 Hepatitis A IgM Ab Non-reactive (NonReactive) 06/22/20 17:00 Hep Bs Antigen Non-reactive (Negative) 06/22/20 17:00 Hep B Core IgM Ab Non-reactive (NonReactive) 06/22/20 17:00 Hepatitis C Antibody Non-reactive (NonReactive) 06/22/20 17:00 SARS-CoV-2 IgG Ab Nonreactive (NonReactive) 07/04/20 05:20 Blood Type A POSITIVE 07/17/20 Unknown Antibody Screen Negative 07/17/20 Unknown Crossmatch See Detail 07/17/20 Unknown Microbiology: Microbiology 07/18/20 18:20 Peripheral/Venous Blood Culture - Preliminary NO GROWTH AFTER 48 HOURS 07/18/20 18:05 Peripheral/Venous Blood Culture - Preliminary NO GROWTH AFTER 48 HOURS - Diagnostic Impressions Diagnostic Impressions: Echocardiogram 06/29/20 06:00 Transthoracic Echocardiogram Indication: A-fib BP: 105/47 HR: 99 Conclusions *The study is technically very difficult and limited due to poor acoustic windows. *Global left ventricular wall motion and contractility are within normal limits. *The estimated ejection fraction is 55-60%. *There is no pericardial effusion. Findings Procedure Info: The study quality is technically difficult. The study is technically limited due to poor acoustic windows. Left Ventricle: Global left ventricular wall motion and contractility are within normal limits. Global left ventricular systolic function is normal. The estimated ejection fraction is 55-60%. Left Atrium: The left atrium is not well visualized. Right Ventricle: The right ventricle is not well visualized. Right Atrium: The right atrium is not well visualized. Aortic Valve: The aortic valve is not well visualized. Mitral Valve: The mitral valve is not well visualized. Tricuspid Valve: The tricuspid valve is not well visualized. Pulmonic Valve: The pulmonic valve is not well visualized. Pericardium: There is no pericardial effusion. Venous: There is no change in the dimension of the inferior vena cava with respiration consistent with markedly increased right atrial pressure. Newell/IV: Voiding Method Incontinent Active Medications - Current Medications Current Medications: Generic Name Dose Route Start Last Admin Trade Name Freq PRN Reason Stop Dose Admin Acetaminophen 650 mg 06/17/20 14:17 07/03/20 09:16 Acetaminophen 325 Mg Tab PO 650 mg Q4H PRN Administration Pain MILD(1-3)/Fever >100.5/ROBERTS Albuterol 2.5 mg 07/19/20 12:15 Albuterol 2.5 Mg/3 Ml Nebu IH Q6HRT PRN Shortness Of Breath Amiodarone HCl 200 mg 07/19/20 14:00 07/21/20 09:31 Amiodarone 200 Mg Tab PO 200 mg BID CONNOR Administration Lipase/Protease/Amylase 1 each 06/19/20 12:15 Lipase 10,500/Protease 25,000/Amylase 43,750 (Units) Dr Shad FEEDTUBE PRN PRN For Clogged Feeding Tube Ascorbic Acid 250 mg 06/17/20 22:00 07/21/20 09:31 Ascorbic Acid 250 Mg Tab PO 250 mg BID CONNOR Administration Cholecalciferol 1,000 unit 06/18/20 10:00 07/21/20 09:30 Cholecalciferol (Vit D3) 1000 Unit (25 Mcg) Tab PO 1,000 unit DAILY CONNOR Administration Docusate Sodium 100 mg 06/23/20 15:00 07/21/20 09:31 Docusate Sodium 100 Mg/10 Ml Oral Liqd FEEDTUBE 100 mg BID CONNOR Administration Fentanyl 50 mcg 06/18/20 01:02 07/09/20 00:20 Fentanyl 100 Mcg/2 Ml Inj IV 50 mcg Q10MIN PRN Administration ANALGESIA Heparin Sodium (Porcine) 5,000 unit 06/22/20 12:53 06/30/20 13:36 Heparin 10,000 Unit/1 Ml Vial IV 5,000 unit PAM PRN Administration hemodialysis Hydrophilic Ointment 1 applic 06/17/20 22:52 07/12/20 20:22 Lip Therapy Vaseline TP 1 applic Q2HR PRN Administration Dry Lips Propofol 1,000 mg in 100 mls @ 3.402 mls/hr 06/18/20 01:00 07/21/20 07:35 Diprivan 10 Mg/Ml IV 10 mcg/kg/min TITR CONNOR 6.804 mls/hr Administration Protocol 5 MCG/KG/MIN Fentanyl Citrate 2,000 mcg in 100 mls @ 8 mls/hr 06/18/20 02:00 07/21/20 15:26 Fentanyl Drip Premix IV 2 mcg/kg/hr TITR CONNOR 16 mls/hr Administration Protocol 1 MCG/KG/HR Norepinephrine 4 mg in 250 mls @ 7.5 mls/hr 07/08/20 02:06 07/21/20 06:49 Levophed Drip 4 Mg/Ns 250 Ml IV 0 mcg/min TITR CONNOR 0 mls/hr Titration Protocol 2 MCG/MIN Vasopressin 20 unit/ Sodium 101 mls @ 9.09 mls/hr 07/11/20 11:00 07/18/20 15:36 Chloride IV 0 units/min TITR CONNOR 0 mls/hr Titration Protocol 0.03 UNITS/MIN Sodium Chloride 100 mls @ 999 mls/hr 07/19/20 08:22 Nacl 0.9% IV PAM PRN Hypotension Ampicillin Sodium 2 gm in 100 mls @ 100 mls/hr 07/21/20 12:00 07/21/20 13:10 Ampicillin/Ns 2 Gm/100 Ml IV 08/02/20 12:59 100 mls/hr Q12H CONNOR Administration Protocol Insulin Human Regular 0 units 06/18/20 12:00 07/21/20 12:53 Insulin Regular, Human 100 Units/1 Ml SUB-Q Not Given Q6HR [facility] Protocol Multi-Ingred Cream/Lotion/Oil/Oint 1 applic 06/17/20 22:52 07/12/20 20:22 Mineral Oil/Petrolatum, White Ophth Oint 3.5 Gm OU 1 applic Q4HR PRN Administration Dry Eye(s) Ondansetron HCl 4 mg 06/17/20 14:17 Ondansetron 4 Mg/2 Ml Inj IV Q8H PRN Nausea And Vomiting Pantoprazole Sodium 40 mg 07/16/20 22:00 07/21/20 09:30 Pantoprazole 40 Mg Inj IV 40 mg BID CONNOR Administration Polyethylene Glycol 17 gm 06/23/20 15:00 07/21/20 09:39 Polyethylene Glycol 3350 17 Gm Powder PO 17 gm QDAY CONNOR Administration Quetiapine Fumarate 200 mg 06/28/20 13:00 07/21/20 09:30 Quetiapine 200 Mg Tab PO 200 mg BID CONNOR Administration Simple Syrup 15 ml 06/19/20 12:15 07/19/20 00:48 Simple Syrup 15 Ml FEEDTUBE 15 ml PRN PRN Administration Hypoglycemia Simple Syrup 30 ml 06/19/20 12:15 07/19/20 06:04 Simple Syrup 15 Ml FEEDTUBE 30 ml PRN PRN Administration Hypoglycemia Sodium Bicarbonate 325 mg 06/19/20 12:15 07/11/20 20:00 Sodium Bicarbonate 325 Mg Tab FEEDTUBE 325 mg PRN PRN Administration For Clogged Feeding Tube Sodium Bicarbonate 650 mg 07/04/20 10:00 07/21/20 16:21 Sodium Bicarbonate 650 Mg Tab PO 650 mg TID CONNOR Administration Sodium Chloride 10 ml 06/17/20 22:00 07/21/20 09:38 Sodium Chloride 0.9% 10 Ml Flush Syringe IV 10 ml BID CONNOR Administration Sodium Chloride 10 ml 06/17/20 14:17 Sodium Chloride 0.9% 10 Ml Flush Syringe IV PRN PRN LINE FLUSH Sodium Hypochlorite 1 applic 07/20/20 10:00 07/21/20 09:32 Sodium Hypochlorite, Dakin's 1/2 Strength (0.25%) 473 Ml Topical Soln TP 1 applicatio BID CONNOR Administration Sodium Polystyrene Sulfonate 15 gm 07/03/20 11:19 07/05/20 10:36 Sodium Polystyrene 15 Gm/60 Ml Oral Liqd PO 15 gm Q6HR PRN Administration Hyperkalemia Zinc Sulfate 220 mg 06/17/20 22:00 07/21/20 09:30 Zinc Sulfate 220 Mg Cap PO 220 mg BID CONNOR Administration Nutrition/Malnutrition Assess - Dietary Evaluation Nutrition/Malnutrition Findings: Nutrition Notes Start: 06/18/20 10:28 Freq: Status: Active Protocol: Document 07/19/20 11:18 AL (Rec: 07/19/20 11:28 AL [id number]) Co-Sign 07/19/20 11:18 LP Nutrition Notes Initial or Follow up Reassessment Current Diagnosis Acute Kidney Injury,Sepsis, Respiratory Failure Other Pertinent Diagnosis COVID-19 (+), pneu Current Diet NPO Labs/Tests K 5.4 BUN 79 Cr 3.2 Pertinent Medications Propofol at 6.8 ml/hr (180 kcal) Height 6 ft Weight 153.3 kg [place] Body Weight (kg) 80.90 BMI 45.8 Weight change and time frame Wt change of 6.6 kg noted (4.7 %). Pt on HD Weight Status Obese Subjective/Other Information FU for stable TF. Per RN note, pt had GI bleed and TF was stopped on 07/14. This morning, RN restarted TF at 25 ml/hr and will incresase by 10 ml q8h. Percent of energy/protein needs met: 50%/29% Burn Absent Trauma Absent GI Symptoms Other Current % PO Negligible Minimum of two criteria No physical signs of malnutrition #2 Nutrition Diagnosis Overweight/obesity Diagnosis Progress(for reassessment Continues documentation) #1 Nutrition Diagnosis Inadequate oral intake Diagnosis Progress(for reassessment Continues documentation) Is patient on ventilator? Yes Is Patient Ambulatory and/or Out of Bed No REE-([facility]-confined to bed) 2849.316 Kcal/Kg value to use for calculation 14 Approximate Energy Requirements Using 2146 kcal/Kg Calculation Used for Recommendations Kcal/kg Additional Notes Protein needs up to >2 g/kg IBW: 162 g Fluid needs: 1,000 ml + output Nutrition Intervention Change Diet Order: TF Nutrition Support: Nepro 1.8 at 50 ml/hr Flush 215 ml q4h Kcal 2,160 Protein (gm) 97 Fluid (mL) 872 Goal #1 Tolerate TF at goal rate Goal #2 Meet energy and protein needs as best as possible. Anticipated Discharge Needs: Unable to determine at the time. Follow-Up By: 07/22/20 Additional Comments F/U for TF at goal rate and vent status
[2020-07-22] MEDS: AMPICILLIN/NS 2 GM/100 ML 2 GM/100 ML BAG IV SCH ×2 (00:57→14:53)
[2020-07-22] MEDS: INSULIN REGULAR, HUMAN 100 UNITS/1 ML SUB-Q SCH ×4 (01:19→18:06)
[2020-07-22] MEDS: fentaNYL DRIP Premix 2,000 MCG/100 ML BAG IV SCH ×4 (04:23→22:15)
[2020-07-22] MEDS: POLYETHYLENE GLYCOL 3350 17 GM POWDER PO SCH (09:12)
[2020-07-22] MEDS: QUEtiapine 200 MG TAB PO SCH ×2 (09:13→21:00)
[2020-07-22] MEDS: PANTOPRAZOLE 40 MG INJ IV SCH ×2 (09:13→22:50)
[2020-07-22] MEDS: ZINC SULFATE 220 MG CAP PO SCH ×2 (09:13→21:00)
[2020-07-22] MEDS: SODIUM BICARBONATE 650 MG TAB PO SCH ×3 (09:13→20:00)
[2020-07-22] MEDS: CHOLECALCIFEROL (VIT D3) 1000 UNIT (25 mcg) TAB PO SCH (09:13)
[2020-07-22] MEDS: DOCUSATE SODIUM 100 MG/10 ML ORAL LIQD FEEDTUBE SCH ×2 (09:13→21:00)
[2020-07-22] MEDS: ASCORBIC ACID 250 MG TAB PO SCH ×2 (09:13→21:00)
[2020-07-22] MEDS: AMIODARONE 200 MG TAB PO SCH ×2 (09:13→21:00)
[2020-07-22] MEDS: SODIUM HYPOCHLORITE, DAKIN'S 1/2 STRENGTH (0.25%) 473 ML TOPICAL SOLN TP SCH ×2 (09:14→21:00)
--- NOTE | 2020-07-22 10:51 | Progress Note ---
Assessment and Plan Cont present cardiac management. Will follow on as needed basis over the weekend. Overall poor prognosis. The patient has been seen in conjunction with Dr. Adarsh Santos who agrees with the assessment and plan of care. - Patient Problems (1) Acute respiratory failure with hypoxia Current Visit: Yes Status: Acute (2) Pneumonia due to COVID-19 virus Current Visit: Yes Status: Acute (3) Sepsis Current Visit: Yes Status: Acute Qualifiers: Severe sepsis acute organ dysfunction type: acute respiratory failure Severe sepsis shock status: with septic shock (4) Paroxysmal atrial fibrillation with rapid ventricular response Current Visit: Yes Status: Acute (5) Acute renal failure Current Visit: Yes Status: Acute (6) Elevated LFTs Current Visit: Yes Status: Acute (7) Anemia Current Visit: Yes Status: Acute Subjective Date of service: 07/22/20 Principal diagnosis: ARF; Septic Shock; COVID-19 PNA; Atrial fibrillation; Ob esity Interval history: pt remains intubated, sedated. intermittently requiring vasopressor support. tele reviewed - in SR HR 70s. Objective Last Vital Signs Temp 97.1 F L 07/22/20 08:00 Pulse 70 07/22/20 09:46 Resp 19 07/22/20 09:46 BP 123/53 07/22/20 09:46 Pulse Ox 98 07/22/20 09:46 - Physical Examination General: Other (intubated, sedated ) Neck: Positive: neck supple Cardiac: Positive: Reg Rate and Rhythm, S1/S2 Lungs: Positive: Decreased Breath Sounds, Oxygen, Ventilated Respirations Neuro: Positive: Other (intubated, lethargic) Abdomen: Positive: Unremarkable Skin: Negative: Rash, Wound Extremities: Present: upper extr. pulses, lower extr. pulses, +1 Edema - Imaging and Cardiology EKG: report reviewed, image reviewed Echo: report reviewed (TDS, EF 55-60%. ) - EKG Sinus rhythms and dysrhythmias: sinus tachycardia - Allied health notes Allied health notes reviewed: nursing
--- NOTE | 2020-07-22 11:32 | Progress Note ---
Assessment and Plan Cultures: SARS CoV2 PCR: Positive 06/17/2020 blood culture: No growth 06/17/2020 sputum culture: No growth 07/15/2020 blood culture: No growth 07/15/2020 fungal blood culture: Enterococcus faecalis 07/15/2020 tracheal aspirate culture: Usual respiratory otf 07/18/2020 blood culture: no growth A/P: 59-year-old male with obesity, obesity hypoventilation syndrome: #Severe sepsis with septic shock, ?also component of hemorrhagic shock #Enterococcus bacteremia: 07/15/2020 fungal blood culture: Growing Enterococcus. ?gut translocation. Interestingly other blood cultures from that day were negative. CT abdomen shows some colitis. If repeat blood cultures negative, will finish 14 days of abx. #Anemia, GI bleed: GI on board. #Critical COVID-19 pneumonia: s/p abx, steroids and remdesivir. #Acute hypoxic respiratory failure: on the vent. Also with pneumomediastinum, subcutaneous emphysema. #GIRISH: remains on HD per nephrology. Renally dose abx. #Sacral decubitus: s/p debridement by Dr. Kirk on 07/20/2020. Recs: -continue IV Ampicillin, renally dosed, complete 14 days ending 08/01/2020 -unless repeat blood cultures turn positive, no need to remove/exchange lines -monitor fever and WBC -overall, very poor prognosis Tj Fajardo MD, FACP [facility] ([facility] O: [phone] F: [phone] Subjective Date of service: 07/22/20 Principal diagnosis: ARF; Septic Shock; COVID-19 PNA; Atrial fibrillation; Obesity Interval history: Afebrile. Remains on the vent. Remains off pressors. Objective - Exam Narrative Exam: Physical Exam (reviewed in chart to minimize risk of transmission) Constitutional: deferred Head, Ears, Nose: deferred Eyes: deferred Neck: deferred Oral: deferred Cardiovascular: deferred Respiratory: deferred GI: deferred Musculoskeletal: deferred Skin: deferred Hem/Lymphatic: deferred Psych: deferred Neurological: deferred - Constitutional Vitals: Vital Signs Temp Pulse Resp BP Pulse Ox 97.1 F L 70 19 123/53 98 07/22/20 08:00 07/22/20 09:46 07/22/20 09:46 07/22/20 09:46 07/22/20 09:46 Temperature -Last 24 Hours Temperature 97.1 F Temperature 98.7 F Temperature 97.6 F Temperature 97.6 F Temperature 97.4 F Temperature 97.1 F - Labs CBC & Chem 7: 07/21/20 05:02 07/19/20 09:15 Labs: Abnormal lab results 07/22/20 Range/Units 04:11 POC ABG pO2 67.7 L (83-108) mmHg ABG Hemoglobin 7.4 L (12.0-17.5) ABG Oxyhemoglobin 91.7 L (94-98) ABG Potassium 2.9 L (3.40-4.50) mmol/L ABG Glucose 105 H (65-95) mg/dL Arterial Blood Glucose 105 H (65-95) mg/dL
--- NOTE | 2020-07-22 11:51 | Progress Note ---
Assessment and Plan Acute hypoxemic respiratory failure due to COVID-19 Severe COVID infection Severe Sepsis with shock Bilateral pneumonia Acute kidney injury (GIRISH) with acute tubular necrosis (ATN) Elevated liver enzymes Obesity - bariatric bed deployed - coronavirus PCR negative now - surgery consult placed for tracheostomy - keep peep at 10 for now re: bibasilar consolidation - surgery consult for tracheostomy if COVID negative - continue to avoid supine position as much as possible - adjust ant-infective's per ID rec's (Ampicillin) - continue bid protonix - wean vasopressors for target MAP > 65 mmHg - continue to follow cultures - continue care as below otherwise; - continue daily SAT's & SBT's as tolerated - continue tube feeds at goal rate as tolerated - continue HD/UF per nephrology team for toxin and volume clearance - continue bowel regimen - Continue to wean supplemental oxygen for O2 sats >92% - Monitor blood pressure closely while optimizing sedation,wean vasopressor support for MAP > 65 mmHg - VAP bundle addressed, aspiration precautions HOB >40 - continue lung protective strategies, permissive hypercapnic acceptable. - continue bronchodilators with pulmonary hygiene per RT - wean per pulmonary driven protocols otherwise - accuchecks with glycemic control per SSI (While critically ill target blood glucose of 140-180 mg/dL; avoid hypoglycemia) - sedation prn for target RASS -1 to -2 - continue enteral nutritional support at goal rate as tolerated - s/p antibiotics per ID recommendations - Monitor liver function test ,avoid hepatotoxic agents - azotemia per nephrology rec's - Avoid nephrotoxins, renally dose all medications, conservative fluid management - continue to avoid benzodiazepines, reduce the possibility of delirium, - prn analgesia per CPOT score - Maintenance of sleep-wake cycle, avoid delirium - Stress ulcer prophylaxis, Famotidine - PT/OT/ROM exercises - Mobility protocols for pressure ulcer prevention - CXR, ABG in am - CBC, CMP in am - Supportive transfusions to keep HgB >7g/dL - Monitor hemodynamics closely - continue other care per attending / other consultants COVID SPECIFIC INTERVENTIONS - s/p steroids: Dexamethasone - completed Remdesivir - monitor inflammatory markers prn - ferritin, D-dimer, CRP, LDH per facility protocol - continue anticoagulation per System Protocol based on d-dimer (on hold due to bleeding) - continue contact and airborne isolation CONDITION: CRITICAL PROGNOSIS: GUARDED CODE STATUS: FULL CODE The high probability of a clinically significant, sudden or life-threatening deterioration of the [respiratory, cardiovascular, hematologic & neurologic] system(s) required my full and direct attention, intervention and personal management. The aggregate critical care time was [32] minutes without overlap. Time includes spent on; [x] Data Review and interpretation [x] Patient assessment and monitoring of vital signs [x] Documentation [x] Medication orders and management He was evaluated in the context of the global COVID-19 pandemic, which necessitated consideration that the patient might be at risk for infection with the virus that causes COVID-19. Institutional protocols and algorithms that per tain to the evaluation of patients at risk for COVID-19 are in a state of rapid change based on information released by regulatory bodies including the CDC and federal and state organizations. These policies and algorithms were followed during the patient's care in the ICU Please note that these policies, procedures and recommendations changed on a rapid basis. Subjective Date of service: 07/22/20 Principal diagnosis: ARF; Septic Shock; COVID-19 PNA; Atrial fibrillation; Obesity Interval history: Patient is seen today for: Ac hypoxemic respiratory failure; COVID-19; Severe Sepsis with shock; Zackery. pneumonia; GIRISH; Elevated liver enzymes; Obesity Seen and examined at bedside; 24hour events reviewed; nursing and respiratory care staff consulted; no adverse overnight events reported to me; resting in bed; remains on MVS; for HD/UF today; bariatric bed delivered and he is being transferred; no gross G.I. or other bleeding; afebrile but WBC climbing up (? post wound debridement) Objective Vital Signs - 12hr 07/22/20 07/22/20 07/22/20 00:00 00:16 00:30 Temperature 97.6 F Pulse Rate 61 60 59 L Pulse Rate [ 60 From Monitor] Respiratory 26 H 25 H 25 H Rate Blood Pressure 103/46 114/52 114/53 O2 Sat by Pulse 99 100 100 Oximetry 07/22/20 07/22/20 07/22/20 00:31 00:46 01:00 Temperature Pulse Rate 59 L 59 L 58 L Pulse Rate [ From Monitor] Respiratory 25 H 16 Rate Blood Pressure 114/53 101/46 111/51 O2 Sat by Pulse 100 100 100 Oximetry 07/22/20 07/22/20 07/22/20 01:16 01:30 01:46 Temperature Pulse Rate 57 L 68 70 Pulse Rate [ From Monitor] Respiratory 25 H 21 18 Rate Blood Pressure 103/45 147/59 143/58 O2 Sat by Pulse 99 90 95 Oximetry 07/22/20 07/22/20 07/22/20 02:00 02:16 02:30 Temperature Pulse Rate 71 74 70 Pulse Rate [ From Monitor] Respiratory 30 H 11 L 17 Rate Blood Pressure 148/64 145/54 133/51 O2 Sat by Pulse 91 93 94 Oximetry 07/22/20 07/22/20 07/22/20 02:46 03:00 03:16 Temperature Pulse Rate 68 70 68 Pulse Rate [ From Monitor] Respiratory 27 H 19 17 Rate Blood Pressure 115/44 108/42 109/46 O2 Sat by Pulse 97 97 96 Oximetry 07/22/20 07/22/20 07/22/20 03:30 03:46 04:00 Temperature 98.7 F Pulse Rate 66 64 64 Pulse Rate [ 64 From Monitor] Respiratory 16 15 14 Rate Blood Pressure 103/37 97/39 95/36 O2 Sat by Pulse 98 99 Oximetry 07/22/20 07/22/20 07/22/20 04:16 04:30 04:32 Temperature Pulse Rate 81 70 70 Pulse Rate [ From Monitor] Respiratory 10 L 10 L Rate Blood Pressure 109/93 182/64 130/57 O2 Sat by Pulse 97 96 95 Oximetry 07/22/20 07/22/20 07/22/20 04:46 05:00 05:16 Temperature Pulse Rate 69 67 68 Pulse Rate [ From Monitor] Respiratory 14 25 H 16 Rate Blood Pressure 142/61 141/58 142/55 O2 Sat by Pulse 96 95 Oximetry 07/22/20 07/22/20 07/22/20 05:30 05:46 06:00 Temperature Pulse Rate 70 67 71 Pulse Rate [ From Monitor] Respiratory 16 17 10 L Rate Blood Pressure 135/57 132/53 134/58 O2 Sat by Pulse 96 Oximetry 07/22/20 07/22/20 07/22/20 06:16 06:30 06:46 Temperature Pulse Rate 66 65 62 Pulse Rate [ From Monitor] Respiratory 23 25 H 25 H Rate Blood Pressure 118/54 110/49 104/48 O2 Sat by Pulse 96 98 99 Oximetry 07/22/20 07/22/20 07/22/20 07:00 07:16 07:30 Temperature Pulse Rate 62 62 63 Pulse Rate [ From Monitor] Respiratory 25 H 25 H 25 H Rate Blood Pressure 102/51 94/45 92/44 O2 Sat by Pulse 99 99 99 Oximetry 07/22/20 07/22/20 07/22/20 07:46 08:00 08:01 Temperature 97.1 F L Pulse Rate 60 70 65 Pulse Rate [ From Monitor] Respiratory 27 H 22 Rate Blood Pressure 97/48 102/48 119/75 O2 Sat by Pulse 100 100 100 Oximetry 07/22/20 07/22/20 07/22/20 08:16 08:30 08:46 Temperature Pulse Rate 65 68 68 Pulse Rate [ From Monitor] Respiratory 18 29 H 18 Rate Blood Pressure 114/54 138/66 136/58 O2 Sat by Pulse 99 99 99 Oximetry 07/22/20 07/22/20 07/22/20 09:00 09:16 09:30 Temperature Pulse Rate 66 71 71 Pulse Rate [ From Monitor] Respiratory 18 27 H 23 Rate Blood Pressure 112/50 132/66 122/54 O2 Sat by Pulse 98 98 98 Oximetry 07/22/20 09:46 Temperature Pulse Rate 70 Pulse Rate [ From Monitor] Respiratory 19 Rate Blood Pressure 123/53 O2 Sat by Pulse 98 Oximetry Constitutional: no acute distress, other (morbidly obese, atraumatic, normocepha lic, mild resp distress, orally intubated) Eyes: non-icteric ENT: oropharynx dry, other (ETT 24 cm TROY ) Neck: supple, no lymphadenopathy, other (Large , short neck) Effort: mildly labored Ascultation: Bilateral: diminished breath sounds, rhonchi (scant) Percussion: Bilateral: not dull Cardiovascular: irregular rhythm, other (S1,S2) Gastrointestinal: normoactive bowel sounds, soft, non-tender, non-distended (protuberant), other (lizeth-rectal tube slow oozing) Integumentary: rash, other (Femoral CVC, Newell catheter) Extremities: pink and warm, pulses normal, no ischemia or petechiae, edema (trace to 1+) Neurologic: non-focal exam (grossly), pupils equal and round, CN II-XII normal, other (unable to assess, sedated) Psychiatric: other (unable to assess, sedated) CBC and BMP: 07/22/20 16:00 07/23/20 Unknown ABG, PT/INR, D-dimer: ABG ABG pH 7.399 (7.320-7.450) 07/22/20 04:11 POC ABG pCO2 44.3 mmHg (32.0-48.0) 07/22/20 04:11 ABG pCO2 56.4 mm Hg 07/05/20 04:30 POC ABG pO2 67.7 mmHg (83-108) L 07/22/20 04:11 ABG pO2 151.9 mm Hg (80.0-90.0) H 07/05/20 04:30 POC ABG HCO3 26.8 07/22/20 04:11 ABG O2 Saturation 93.2 (0-100) 07/22/20 04:11 PT/INR, D-dimer PT 18.2 Sec. (12.2-14.9) H 07/17/20 15:25 INR 1.52 (0.87-1.13) H 07/17/20 15:25 D-Dimer 6608.00 ng/mlDDU (0-234) H 07/03/20 14:50 Abnormal lab findings: Abnormal Labs 06/17/20 06/17/20 06/17/20 12:33 12:33 12:33 WBC 19.5 H RBC 5.18 H Hgb 15.5 H Hct MCHC RDW Plt Count Lymph % (Auto) 3.8 L Weber % (Auto) Lymph # (Auto) 0.7 L Weber # (Auto) Eos # (Auto) Seg Neutrophils % Seg Neuts % (Manual) 99.0 H Lymphocytes % (Manual) 1.0 L Monocytes % (Manual) Nucleated RBC % Seg Neutrophils # 18.2 H Seg Neutrophils # Man 19.3 H Lymphocytes # (Manual) 0.2 L Monocytes # (Manual) Eosinophils # (Manual) PT 16.5 H INR 1.33 H APTT D-Dimer 1025.04 H Heparin Anti-Xa Level ABG pH POC ABG pCO2 POC ABG pO2 ABG pO2 ABG HCO3 ABG Hemoglobin ABG Oxyhemoglobin ABG Sodium ABG Potassium ABG Chloride ABG Glucose Carboxyhemoglobin Sodium 130 L Potassium 3.4 L Chloride 95.0 L Carbon Dioxide BUN 21 H Creatinine Glucose 137 H POC Glucose Lactic Acid Calcium 7.9 L Phosphorus Magnesium Ferritin Direct Bilirubin AST 84 H ALT 67 H Alkaline Phosphatase Lactate Dehydrogenase 437 H Total Creatine Kinase 310 H C-Reactive Protein 27.90 H Total Protein Albumin 2.9 L Triglycerides Arterial Blood Glucose Arterial Blood Ionized Calcium Urine Creatinine Urine Chloride Vancomycin Trough Coronavirus (PCR) Crossmatch 06/17/20 06/17/20 06/17/20 12:33 12:33 14:48 WBC RBC Hgb Hct MCHC RDW Plt Count Lymph % (Auto) Weber % (Auto) Lymph # (Auto) Weber # (Auto) Eos # (Auto) Seg Neutrophils % Seg Neuts % (Manual) Lymphocytes % (Manual) Monocytes % (Manual) Nucleated RBC % Seg Neutrophils # Seg Neutrophils # Man Lymphocytes # (Manual) Monocytes # (Manual) Eosinophils # (Manual) PT INR APTT D-Dimer Heparin Anti-Xa Level ABG pH POC ABG pCO2 POC ABG pO2 ABG pO2 ABG HCO3 ABG Hemoglobin ABG Oxyhemoglobin ABG Sodium ABG Potassium ABG Chloride ABG Glucose Carboxyhemoglobin Sodium Potassium Chloride Carbon Dioxide BUN Creatinine Glucose POC Glucose Lactic Acid 2.50 H* 2.20 H* Calcium Phosphorus Magnesium Ferritin 2297.0 H Direct Bilirubin AST ALT Alkaline Phosphatase Lactate Dehydrogenase Total Creatine Kinase C-Reactive Protein Total Protein Albumin Triglycerides Arterial Blood Glucose Arterial Blood Ionized Calcium Urine Creatinine Urine Chloride Vancomycin Trough Coronavirus (PCR) Crossmatch 06/17/20 06/17/20 06/17/20 14:48 14:48 14:48 WBC RBC Hgb Hct MCHC RDW Plt Count Lymph % (Auto) Weber % (Auto) Lymph # (Auto) Weber # (Auto) Eos # (Auto) Seg Neutrophils % Seg Neuts % (Manual) Lymphocytes % (Manual) Monocytes % (Manual) Nucleated RBC % Seg Neutrophils # Seg Neutrophils # Man Lymphocytes # (Manual) Monocytes # (Manual) Eosinophils # (Manual) PT INR APTT D-Dimer 939.89 H Heparin Anti-Xa Level ABG pH POC ABG pCO2 POC ABG pO2 ABG pO2 ABG HCO3 ABG Hemoglobin ABG Oxyhemoglobin ABG Sodium ABG Potassium ABG Chloride ABG Glucose Carboxyhemoglobin Sodium Potassium Chloride Carbon Dioxide BUN Creatinine Glucose 141 H POC Glucose Lactic Acid Calcium Phosphorus Magnesium Ferritin > 2000.0 H Direct Bilirubin AST ALT Alkaline Phosphatase Lactate Dehydrogenase 503 H Total Creatine Kinase C-Reactive Protein 24.70 H Total Protein Albumin Triglycerides Arterial Blood Glucose Arterial Blood Ionized Calcium Urine Creatinine Urine Chloride Vancomycin Trough Coronavirus (PCR) Crossmatch 06/17/20 06/17/20 06/17/20 16:54 19:39 23:43 WBC RBC Hgb Hct MCHC RDW Plt Count Lymph % (Auto) Weber % (Auto) Lymph # (Auto) Weber # (Auto) Eos # (Auto) Seg Neutrophils % Seg Neuts % (Manual) Lymphocytes % (Manual) Monocytes % (Manual) Nucleated RBC % Seg Neutrophils # Seg Neutrophils # Man Lymphocytes # (Manual) Monocytes # (Manual) Eosinophils # (Manual) PT INR APTT D-Dimer Heparin Anti-Xa Level ABG pH 7.571 H POC ABG pCO2 24.3 L POC ABG pO2 41.6 L ABG pO2 ABG HCO3 ABG Hemoglobin ABG Oxyhemoglobin 84.0 L ABG Sodium 131.0 L ABG Potassium ABG Chloride ABG Glucose 163 H Carboxyhemoglobin Sodium Potassium Chloride Carbon Dioxide BUN Creatinine Glucose POC Glucose 185 H Lactic Acid 2.10 H* Calcium Phosphorus Magnesium Ferritin Direct Bilirubin AST ALT Alkaline Phosphatase Lactate Dehydrogenase Total Creatine Kinase C-Reactive Protein Total Protein Albumin Triglycerides Arterial Blood Glucose 163 H Arterial Blood Ionized Calcium 4.4 L Urine Creatinine Urine Chloride Vancomycin Trough Coronavirus (PCR) Crossmatch 06/18/20 06/18/20 06/18/20 00:17 00:23 03:55 WBC RBC Hgb Hct MCHC RDW Plt Count Lymph % (Auto) Weber % (Auto) Lymph # (Auto) Weber # (Auto) Eos # (Auto) Seg Neutrophils % Seg Neuts % (Manual) Lymphocytes % (Manual) Monocytes % (Manual) Nucleated RBC % Seg Neutrophils # Seg Neutrophils # Man Lymphocytes # (Manual) Monocytes # (Manual) Eosinophils # (Manual) PT INR APTT D-Dimer Heparin Anti-Xa Level ABG pH POC ABG pCO2 POC ABG pO2 56.5 L 48.3 L ABG pO2 ABG HCO3 ABG Hemoglobin ABG Oxyhemoglobin 86.3 L 81.7 L ABG Sodium 132.9 L 131.0 L ABG Potassium ABG Chloride ABG Glucose 189 H 161 H Carboxyhemoglobin 0.4 L Sodium Potassium Chloride Carbon Dioxide BUN Creatinine Glucose POC Glucose Lactic Acid 3.80 H* Calcium Phosphorus Magnesium Ferritin Direct Bilirubin AST ALT Alkaline Phosphatase Lactate Dehydrogenase Total Creatine Kinase C-Reactive Protein Total Protein Albumin Triglycerides Arterial Blood Glucose 189 H 161 H Arterial Blood Ionized Calcium 4.3 L 4.2 L Urine Creatinine Urine Chloride Vancomycin Trough Coronavirus (PCR) Crossmatch 06/18/20 06/18/20 06/18/20 05:39 05:39 05:39 WBC 26.2 H RBC Hgb Hct MCHC RDW Plt Count Lymph % (Auto) Weber % (Auto) Lymph # (Auto) Weber # (Auto) Eos # (Auto) Seg Neutrophils % Seg Neuts % (Manual) 90.0 H Lymphocytes % (Manual) 5.0 L Monocytes % (Manual) Nucleated RBC % Seg Neutrophils # Seg Neutrophils # Man 23.6 H Lymphocytes # (Manual) Monocytes # (Manual) 1.3 H Eosinophils # (Manual) PT INR APTT D-Dimer Heparin Anti-Xa Level ABG pH POC ABG pCO2 POC ABG pO2 ABG pO2 ABG HCO3 ABG Hemoglobin ABG Oxyhemoglobin ABG Sodium ABG Potassium ABG Chloride ABG Glucose Carboxyhemoglobin Sodium 135 L Potassium Chloride 97.5 L Carbon Dioxide 21 L BUN 39 H Creatinine 1.7 H D Glucose 168 H POC Glucose Lactic Acid 3.40 H* Calcium 7.2 L Phosphorus Magnesium Ferritin Direct Bilirubin AST ALT Alkaline Phosphatase Lactate Dehydrogenase Total Creatine Kinase C-Reactive Protein Total Protein Albumin Triglycerides Arterial Blood Glucose Arterial Blood Ionized Calcium Urine Creatinine Urine Chloride Vancomycin Trough Coronavirus (PCR) Crossmatch 06/18/20 06/18/20 06/18/20 07:24 09:00 10:10 WBC RBC Hgb Hct MCHC RDW Plt Count Lymph % (Auto) Weber % (Auto) Lymph # (Auto) Weber # (Auto) Eos # (Auto) Seg Neutrophils % Seg Neuts % (Manual) Lymphocytes % (Manual) Monocytes % (Manual) Nucleated RBC % Seg Neutrophils # Seg Neutrophils # Man Lymphocytes # (Manual) Monocytes # (Manual) Eosinophils # (Manual) PT INR APTT D-Dimer Heparin Anti-Xa Level ABG pH POC ABG pCO2 POC ABG pO2 ABG pO2 ABG HCO3 ABG Hemoglobin ABG Oxyhemoglobin ABG Sodium ABG Potassium ABG Chloride ABG Glucose Carboxyhemoglobin Sodium Potassium Chloride Carbon Dioxide BUN Creatinine Glucose POC Glucose Lactic Acid 2.90 H* 3.20 H* Calcium Phosphorus Magnesium Ferritin Direct Bilirubin AST ALT Alkaline Phosphatase Lactate Dehydrogenase Total Creatine Kinase C-Reactive Protein Total Protein Albumin Triglycerides Arterial Blood Glucose Arterial Blood Ionized Calcium Urine Creatinine Urine Chloride Vancomycin Trough Coronavirus (PCR) Positive A Crossmatch 0206/18/20 06/18/20 11:58 14:43 15:00 WBC RBC Hgb Hct MCHC RDW Plt Count Lymph % (Auto) Weber % (Auto) Lymph # (Auto) Weber # (Auto) Eos # (Auto) Seg Neutrophils % Seg Neuts % (Manual) Lymphocytes % (Manual) Monocytes % (Manual) Nucleated RBC % Seg Neutrophils # Seg Neutrophils # Man Lymphocytes # (Manual) Monocytes # (Manual) Eosinophils # (Manual) PT INR APTT D-Dimer Heparin Anti-Xa Level ABG pH 7.303 L POC ABG pCO2 POC ABG pO2 82.3 L ABG pO2 ABG HCO3 ABG Hemoglobin ABG Oxyhemoglobin ABG Sodium 135.3 L ABG Potassium ABG Chloride ABG Glucose 215 H Carboxyhemoglobin 0.3 L Sodium Potassium Chloride Carbon Dioxide BUN Creatinine Glucose POC Glucose 209 H Lactic Acid Calcium Phosphorus Magnesium Ferritin Direct Bilirubin AST ALT Alkaline Phosphatase Lactate Dehydrogenase Total Creatine Kinase C-Reactive Protein Total Protein Albumin Triglycerides Arterial Blood Glucose 215 H Arterial Blood Ionized Calcium 4.2 L Urine Creatinine 192.4 H Urine Chloride 31.1 L Vancomycin Trough Coronavirus (PCR) Crossmatch 06/18/20 06/18/20 06/18/20 17:16 19:44 20:33 WBC RBC Hgb Hct MCHC RDW Plt Count Lymph % (Auto) Weber % (Auto) Lymph # (Auto) Weber # (Auto) Eos # (Auto) Seg Neutrophils % Seg Neuts % (Manual) Lymphocytes % (Manual) Monocytes % (Manual) Nucleated RBC % Seg Neutrophils # Seg Neutrophils # Man Lymphocytes # (Manual) Monocytes # (Manual) Eosinophils # (Manual) PT INR APTT D-Dimer Heparin Anti-Xa Level ABG pH POC ABG pCO2 POC ABG pO2 ABG pO2 ABG HCO3 ABG Hemoglobin ABG Oxyhemoglobin ABG Sodium ABG Potassium ABG Chloride ABG Glucose Carboxyhemoglobin Sodium Potassium Chloride Carbon Dioxide BUN Creatinine Glucose POC Glucose 182 H Lactic Acid 3.00 H* Calcium Phosphorus Magnesium 2.70 H Ferritin Direct Bilirubin AST ALT Alkaline Phosphatase Lactate Dehydrogenase Total Creatine Kinase C-Reactive Protein Total Protein Albumin Triglycerides Arterial Blood Glucose Arterial Blood Ionized Calcium Urine Creatinine Urine Chloride Vancomycin Trough Coronavirus (PCR) Crossmatch 06/18/20 06/19/20 06/19/20 23:43 04:00 04:00 WBC 31.6 H RBC Hgb Hct MCHC RDW Plt Count Lymph % (Auto) Weber % (Auto) Lymph # (Auto) Weber # (Auto) Eos # (Auto) Seg Neutrophils % Seg Neuts % (Manual) 98.0 H Lymphocytes % (Manual) 0.5 L Monocytes % (Manual) Nucleated RBC % Seg Neutrophils # Seg Neutrophils # Man 31.0 H Lymphocytes # (Manual) 0.2 L Monocytes # (Manual) Eosinophils # (Manual) PT INR APTT D-Dimer Heparin Anti-Xa Level ABG pH POC ABG pCO2 POC ABG pO2 ABG pO2 ABG HCO3 ABG Hemoglobin ABG Oxyhemoglobin ABG Sodium ABG Potassium ABG Chloride ABG Glucose Carboxyhemoglobin Sodium Potassium Chloride Carbon Dioxide BUN 56 H Creatinine 1.6 H Glucose 176 H POC Glucose 149 H Lactic Acid Calcium 7.0 L Phosphorus Magnesium Ferritin Direct Bilirubin AST 244 H ALT 159 H Alkaline Phosphatase Lactate Dehydrogenase Total Creatine Kinase C-Reactive Protein Total Protein 4.9 L D Albumin 2.5 L Triglycerides Arterial Blood Glucose Arterial Blood Ionized Calcium Urine Creatinine Urine Chloride Vancomycin Trough Coronavirus (PCR) Crossmatch 06/19/20 06/19/20 06/19/20 04:00 05:44 11:42 WBC RBC Hgb Hct MCHC RDW Plt Count Lymph % (Auto) Weber % (Auto) Lymph # (Auto) Weber # (Auto) Eos # (Auto) Seg Neutrophils % Seg Neuts % (Manual) Lymphocytes % (Manual) Monocytes % (Manual) Nucleated RBC % Seg Neutrophils # Seg Neutrophils # Man Lymphocytes # (Manual) Monocytes # (Manual) Eosinophils # (Manual) PT INR APTT D-Dimer Heparin Anti-Xa Level ABG pH 7.265 L POC ABG pCO2 51.8 H POC ABG pO2 65.1 L ABG pO2 ABG HCO3 ABG Hemoglobin ABG Oxyhemoglobin ABG Sodium ABG Potassium ABG Chloride ABG Glucose 184 H Carboxyhemoglobin Sodium Potassium Chloride Carbon Dioxide BUN Creatinine Glucose POC Glucose 156 H 191 H Lactic Acid Calcium Phosphorus Magnesium Ferritin Direct Bilirubin AST ALT Alkaline Phosphatase Lactate Dehydrogenase Total Creatine Kinase C-Reactive Protein Total Protein Albumin Triglycerides Arterial Blood Glucose 184 H Arterial Blood Ionized Calcium 4.3 L Urine Creatinine Urine Chloride Vancomycin Trough Coronavirus (PCR) Crossmatch 06/19/20 06/19/20 06/19/20 12:30 17:16 18:36 WBC RBC Hgb Hct MCHC RDW Plt Count Lymph % (Auto) Weber % (Auto) Lymph # (Auto) Weber # (Auto) Eos # (Auto) Seg Neutrophils % Seg Neuts % (Manual) Lymphocytes % (Manual) Monocytes % (Manual) Nucleated RBC % Seg Neutrophils # Seg Neutrophils # Man Lymphocytes # (Manual) Monocytes # (Manual) Eosinophils # (Manual) PT 16.4 H INR 1.32 H APTT D-Dimer Heparin Anti-Xa Level ABG pH 7.088 L POC ABG pCO2 78.1 H POC ABG pO2 208.3 H ABG pO2 ABG HCO3 ABG Hemoglobin ABG Oxyhemoglobin 98.3 H ABG Sodium ABG Potassium 5.0 H ABG Chloride ABG Glucose 182 H Carboxyhemoglobin 0.4 L Sodium Potassium Chloride Carbon Dioxide BUN Creatinine Glucose POC Glucose 154 H Lactic Acid Calcium Phosphorus Magnesium Ferritin Direct Bilirubin AST ALT Alkaline Phosphatase Lactate Dehydrogenase Total Creatine Kinase C-Reactive Protein Total Protein Albumin Triglycerides Arterial Blood Glucose 182 H Arterial Blood Ionized Calcium 4.3 L Urine Creatinine Urine Chloride Vancomycin Trough Coronavirus (PCR) Crossmatch 06/19/20 06/20/20 06/20/20 23:32 03:00 05:19 WBC RBC Hgb Hct MCHC RDW Plt Count Lymph % (Auto) Weber % (Auto) Lymph # (Auto) Weber # (Auto) Eos # (Auto) Seg Neutrophils % Seg Neuts % (Manual) Lymphocytes % (Manual) Monocytes % (Manual) Nucleated RBC % Seg Neutrophils # Seg Neutrophils # Man Lymphocytes # (Manual) Monocytes # (Manual) Eosinophils # (Manual) PT INR APTT D-Dimer Heparin Anti-Xa Level 0.77 H ABG pH POC ABG pCO2 POC ABG pO2 ABG pO2 ABG HCO3 ABG Hemoglobin ABG Oxyhemoglobin ABG Sodium ABG Potassium ABG Chloride ABG Glucose Carboxyhemoglobin Sodium Potassium Chloride Carbon Dioxide BUN Creatinine Glucose POC Glucose 201 H 190 H Lactic Acid Calcium Phosphorus Magnesium Ferritin Direct Bilirubin AST ALT Alkaline Phosphatase Lactate Dehydrogenase Total Creatine Kinase C-Reactive Protein Total Protein Albumin Triglycerides Arterial Blood Glucose Arterial Blood Ionized Calcium Urine Creatinine Urine Chloride Vancomycin Trough Coronavirus (PCR) Crossmatch 06/20/20 06/20/20 06/20/20 08:25 08:25 11:36 WBC RBC Hgb Hct MCHC RDW Plt Count Lymph % (Auto) Weber % (Auto) Lymph # (Auto) Weber # (Auto) Eos # (Auto) Seg Neutrophils % Seg Neuts % (Manual) Lymphocytes % (Manual) Monocytes % (Manual) Nucleated RBC % Seg Neutrophils # Seg Neutrophils # Man Lymphocytes # (Manual) Monocytes # (Manual) Eosinophils # (Manual) PT INR APTT D-Dimer Heparin Anti-Xa Level ABG pH POC ABG pCO2 POC ABG pO2 ABG pO2 ABG HCO3 ABG Hemoglobin ABG Oxyhemoglobin ABG Sodium ABG Potassium ABG Chloride ABG Glucose Carboxyhemoglobin Sodium 135 L Potassium 5.4 H Chloride 109.2 H Carbon Dioxide 19 L BUN 68 H Creatinine 2.5 H D Glucose 201 H POC Glucose 184 H Lactic Acid Calcium 5.5 L* D Phosphorus Magnesium Ferritin Direct Bilirubin AST 123 H ALT 86 H Alkaline Phosphatase Lactate Dehydrogenase Total Creatine Kinase C-Reactive Protein Total Protein 4.6 L Albumin 1.5 L Triglycerides Arterial Blood Glucose Arterial Blood Ionized Calcium Urine Creatinine Urine Chloride Vancomycin Trough 22.7 H Coronavirus (PCR) Crossmatch 06/20/20 06/20/20 06/20/20 11:40 17:28 20:00 WBC RBC Hgb Hct MCHC RDW Plt Count Lymph % (Auto) Weber % (Auto) Lymph # (Auto) Weber # (Auto) Eos # (Auto) Seg Neutrophils % Seg Neuts % (Manual) Lymphocytes % (Manual) Monocytes % (Manual) Nucleated RBC % Seg Neutrophils # Seg Neutrophils # Man Lymphocytes # (Manual) Monocytes # (Manual) Eosinophils # (Manual) PT INR APTT D-Dimer Heparin Anti-Xa Level 0.89 H ABG pH 7.099 L POC ABG pCO2 61.1 H POC ABG pO2 ABG pO2 ABG HCO3 ABG Hemoglobin ABG Oxyhemoglobin ABG Sodium ABG Potassium 5.0 H ABG Chloride 111.0 H ABG Glucose 200 H Carboxyhemoglobin 0.4 L Sodium Potassium Chloride Carbon Dioxide BUN Creatinine Glucose POC Glucose 165 H Lactic Acid Calcium Phosphorus Magnesium Ferritin Direct Bilirubin AST ALT Alkaline Phosphatase Lactate Dehydrogenase Total Creatine Kinase C-Reactive Protein Total Protein Albumin Triglycerides Arterial Blood Glucose 200 H Arterial Blood Ionized Calcium 4.2 L Urine Creatinine Urine Chloride Vancomycin Trough Coronavirus (PCR) Crossmatch 06/20/20 06/21/20 06/21/20 23:29 05:00 05:20 WBC RBC Hgb Hct MCHC RDW Plt Count Lymph % (Auto) Weber % (Auto) Lymph # (Auto) Weber # (Auto) Eos # (Auto) Seg Neutrophils % Seg Neuts % (Manual) Lymphocytes % (Manual) Monocytes % (Manual) Nucleated RBC % Seg Neutrophils # Seg Neutrophils # Man Lymphocytes # (Manual) Monocytes # (Manual) Eosinophils # (Manual) PT INR APTT D-Dimer Heparin Anti-Xa Level ABG pH POC ABG pCO2 POC ABG pO2 ABG pO2 ABG HCO3 ABG Hemoglobin ABG Oxyhemoglobin ABG Sodium ABG Potassium ABG Chloride ABG Glucose Carboxyhemoglobin Sodium Potassium Chloride 112.0 H Carbon Dioxide 20 L BUN 92 H Creatinine 3.9 H D Glucose 214 H POC Glucose 145 H 191 H Lactic Acid Calcium 6.5 L D Phosphorus Magnesium Ferritin Direct Bilirubin AST 98 H ALT 84 H Alkaline Phosphatase Lactate Dehydrogenase Total Creatine Kinase C-Reactive Protein Total Protein 4.6 L Albumin 2.1 L Triglycerides 180 H Arterial Blood Glucose Arterial Blood Ionized Calcium Urine Creatinine Urine Chloride Vancomycin Trough Coronavirus (PCR) Crossmatch 06/21/20 06/21/20 06/21/20 08:56 11:12 12:43 WBC RBC Hgb Hct MCHC RDW Plt Count Lymph % (Auto) Weber % (Auto) Lymph # (Auto) Weber # (Auto) Eos # (Auto) Seg Neutrophils % Seg Neuts % (Manual) Lymphocytes % (Manual) Monocytes % (Manual) Nucleated RBC % Seg Neutrophils # Seg Neutrophils # Man Lymphocytes # (Manual) Monocytes # (Manual) Eosinophils # (Manual) PT INR APTT D-Dimer Heparin Anti-Xa Level 0.28 L ABG pH 7.184 L POC ABG pCO2 48.3 H POC ABG pO2 172.1 H ABG pO2 ABG HCO3 ABG Hemoglobin ABG Oxyhemoglobin 98.7 H ABG Sodium ABG Potassium 4.9 H ABG Chloride 112.0 H ABG Glucose 196 H Carboxyhemoglobin 0.2 L Sodium Potassium Chloride Carbon Dioxide BUN Creatinine Glucose POC Glucose 177 H Lactic Acid Calcium Phosphorus Magnesium Ferritin Direct Bilirubin AST ALT Alkaline Phosphatase Lactate Dehydrogenase Total Creatine Kinase C-Reactive Protein Total Protein Albumin Triglycerides Arterial Blood Glucose 196 H Arterial Blood Ionized Calcium 4.1 L Urine Creatinine Urine Chloride Vancomycin Trough Coronavirus (PCR) Crossmatch 06/21/20 06/21/20 06/22/20 16:31 Unknown 00:12 WBC RBC Hgb Hct MCHC RDW Plt Count Lymph % (Auto) Weber % (Auto) Lymph # (Auto) Weber # (Auto) Eos # (Auto) Seg Neutrophils % Seg Neuts % (Manual) Lymphocytes % (Manual) Monocytes % (Manual) Nucleated RBC % Seg Neutrophils # Seg Neutrophils # Man Lymphocytes # (Manual) Monocytes # (Manual) Eosinophils # (Manual) PT INR APTT D-Dimer Heparin Anti-Xa Level 0.78 H ABG pH POC ABG pCO2 POC ABG pO2 ABG pO2 ABG HCO3 ABG Hemoglobin ABG Oxyhemoglobin ABG Sodium ABG Potassium ABG Chloride ABG Glucose Carboxyhemoglobin Sodium Potassium Chloride Carbon Dioxide BUN Creatinine Glucose POC Glucose 150 H 173 H Lactic Acid Calcium Phosphorus Magnesium Ferritin Direct Bilirubin AST ALT Alkaline Phosphatase Lactate Dehydrogenase Total Creatine Kinase C-Reactive Protein Total Protein Albumin Triglycerides Arterial Blood Glucose Arterial Blood Ionized Calcium Urine Creatinine Urine Chloride Vancomycin Trough Coronavirus (PCR) Crossmatch 06/22/20 06/22/20 06/22/20 04:00 05:04 05:30 WBC 33.9 H RBC Hgb 11.7 L Hct 35.2 L MCHC RDW 15.8 H Plt Count Lymph % (Auto) Weber % (Auto) Lymph # (Auto) Weber # (Auto) Eos # (Auto) Seg Neutrophils % Seg Neuts % (Manual) 93.0 H Lymphocytes % (Manual) 5.0 L Monocytes % (Manual) Nucleated RBC % Seg Neutrophils # Seg Neutrophils # Man 31.5 H Lymphocytes # (Manual) Monocytes # (Manual) Eosinophils # (Manual) PT INR APTT D-Dimer Heparin Anti-Xa Level ABG pH 7.169 L POC ABG pCO2 POC ABG pO2 ABG pO2 ABG HCO3 ABG Hemoglobin ABG Oxyhemoglobin ABG Sodium ABG Potassium 5.1 H ABG Chloride 112.0 H ABG Glucose 186 H Carboxyhemoglobin 0.3 L Sodium Potassium Chloride Carbon Dioxide BUN Creatinine Glucose POC Glucose 161 H Lactic Acid Calcium Phosphorus Magnesium Ferritin Direct Bilirubin AST ALT Alkaline Phosphatase Lactate Dehydrogenase Total Creatine Kinase C-Reactive Protein Total Protein Albumin Triglycerides Arterial Blood Glucose 186 H Arterial Blood Ionized Calcium 4.1 L Urine Creatinine Urine Chloride Vancomycin Trough Coronavirus (PCR) Crossmatch 06/22/20 06/22/20 06/22/20 05:30 11:39 13:27 WBC RBC Hgb Hct MCHC RDW Plt Count Lymph % (Auto) Weber % (Auto) Lymph # (Auto) Weber # (Auto) Eos # (Auto) Seg Neutrophils % Seg Neuts % (Manual) Lymphocytes % (Manual) Monocytes % (Manual) Nucleated RBC % Seg Neutrophils # Seg Neutrophils # Man Lymphocytes # (Manual) Monocytes # (Manual) Eosinophils # (Manual) PT INR APTT D-Dimer Heparin Anti-Xa Level ABG pH POC ABG pCO2 POC ABG pO2 ABG pO2 ABG HCO3 ABG Hemoglobin ABG Oxyhemoglobin ABG Sodium ABG Potassium ABG Chloride ABG Glucose Carboxyhemoglobin Sodium Potassium 5.7 H Chloride 111.3 H Carbon Dioxide 18 L BUN 112 H Creatinine 5.0 H Glucose 173 H POC Glucose 172 H 176 H Lactic Acid Calcium 6.7 L Phosphorus Magnesium Ferritin Direct Bilirubin AST ALT Alkaline Phosphatase Lactate Dehydrogenase Total Creatine Kinase C-Reactive Protein Total Protein Albumin Triglycerides Arterial Blood Glucose Arterial Blood Ionized Calcium Urine Creatinine Urine Chloride Vancomycin Trough Coronavirus (PCR) Crossmatch 06/22/20 06/22/20 06/22/20 14:37 17:00 17:40 WBC RBC Hgb Hct MCHC RDW Plt Count Lymph % (Auto) Weber % (Auto) Lymph # (Auto) Weber # (Auto) Eos # (Auto) Seg Neutrophils % Seg Neuts % (Manual) Lymphocytes % (Manual) Monocytes % (Manual) Nucleated RBC % Seg Neutrophils # Seg Neutrophils # Man Lymphocytes # (Manual) Monocytes # (Manual) Eosinophils # (Manual) PT INR APTT D-Dimer Heparin Anti-Xa Level 1.32 H ABG pH POC ABG pCO2 POC ABG pO2 ABG pO2 ABG HCO3 ABG Hemoglobin ABG Oxyhemoglobin ABG Sodium ABG Potassium ABG Chloride ABG Glucose Carboxyhemoglobin Sodium Potassium Chloride Carbon Dioxide BUN Creatinine Glucose POC Glucose 171 H Lactic Acid Calcium Phosphorus Magnesium Ferritin Direct Bilirubin AST ALT Alkaline Phosphatase Lactate Dehydrogenase Total Creatine Kinase C-Reactive Protein 5.30 H Total Protein Albumin Triglycerides Arterial Blood Glucose Arterial Blood Ionized Calcium Urine Creatinine Urine Chloride Vancomycin Trough Coronavirus (PCR) Crossmatch 06/22/20 06/23/20 06/23/20 23:36 02:13 02:41 WBC RBC Hgb Hct MCHC RDW Plt Count Lymph % (Auto) Weber % (Auto) Lymph # (Auto) Weber # (Auto) Eos # (Auto) Seg Neutrophils % Seg Neuts % (Manual) Lymphocytes % (Manual) Monocytes % (Manual) Nucleated RBC % Seg Neutrophils # Seg Neutrophils # Man Lymphocytes # (Manual) Monocytes # (Manual) Eosinophils # (Manual) PT INR APTT D-Dimer Heparin Anti-Xa Level 0.21 L ABG pH 7.318 L POC ABG pCO2 POC ABG pO2 157.5 H ABG pO2 ABG HCO3 ABG Hemoglobin ABG Oxyhemoglobin ABG Sodium 135.6 L ABG Potassium 4.6 H ABG Chloride 110.0 H ABG Glucose 169 H Carboxyhemoglobin Sodium Potassium Chloride Carbon Dioxide BUN Creatinine Glucose POC Glucose 155 H Lactic Acid Calcium Phosphorus Magnesium Ferritin Direct Bilirubin AST ALT Alkaline Phosphatase Lactate Dehydrogenase Total Creatine Kinase C-Reactive Protein Total Protein Albumin Triglycerides Arterial Blood Glucose 169 H Arterial Blood Ionized Calcium Urine Creatinine Urine Chloride Vancomycin Trough Coronavirus (PCR) Crossmatch 06/23/20 06/23/20 06/23/20 04:00 04:00 05:24 WBC 27.4 H RBC Hgb 11.3 L Hct 33.8 L MCHC RDW Plt Count Lymph % (Auto) Weber % (Auto) Lymph # (Auto) Weber # (Auto) Eos # (Auto) Seg Neutrophils % Seg Neuts % (Manual) 93.0 H Lymphocytes % (Manual) 1.0 L Monocytes % (Manual) Nucleated RBC % 1.0 H Seg Neutrophils # Seg Neutrophils # Man 25.5 H Lymphocytes # (Manual) 0.3 L Monocytes # (Manual) 1.1 H Eosinophils # (Manual) PT INR APTT D-Dimer Heparin Anti-Xa Level ABG pH POC ABG pCO2 POC ABG pO2 ABG pO2 ABG HCO3 ABG Hemoglobin ABG Oxyhemoglobin ABG Sodium ABG Potassium ABG Chloride ABG Glucose Carboxyhemoglobin Sodium Potassium Chloride 107.6 H Carbon Dioxide 20 L BUN 100 H Creatinine 4.7 H Glucose 168 H POC Glucose 151 H Lactic Acid Calcium Phosphorus Magnesium Ferritin Direct Bilirubin AST ALT Alkaline Phosphatase Lactate Dehydrogenase Total Creatine Kinase C-Reactive Protein Total Protein Albumin Triglycerides Arterial Blood Glucose Arterial Blood Ionized Calcium Urine Creatinine Urine Chloride Vancomycin Trough Coronavirus (PCR) Crossmatch 06/23/20 06/23/20 06/23/20 11:30 17:18 23:50 WBC RBC Hgb Hct MCHC RDW Plt Count Lymph % (Auto) Weber % (Auto) Lymph # (Auto) Weber # (Auto) Eos # (Auto) Seg Neutrophils % Seg Neuts % (Manual) Lymphocytes % (Manual) Monocytes % (Manual) Nucleated RBC % Seg Neutrophils # Seg Neutrophils # Man Lymphocytes # (Manual) Monocytes # (Manual) Eosinophils # (Manual) PT INR APTT D-Dimer Heparin Anti-Xa Level ABG pH POC ABG pCO2 POC ABG pO2 ABG pO2 ABG HCO3 ABG Hemoglobin ABG Oxyhemoglobin ABG Sodium ABG Potassium ABG Chloride ABG Glucose Carboxyhemoglobin Sodium Potassium Chloride Carbon Dioxide BUN Creatinine Glucose POC Glucose 157 H 156 H 162 H Lactic Acid Calcium Phosphorus Magnesium Ferritin Direct Bilirubin AST ALT Alkaline Phosphatase Lactate Dehydrogenase Total Creatine Kinase C-Reactive Protein Total Protein Albumin Triglycerides Arterial Blood Glucose Arterial Blood Ionized Calcium Urine Creatinine Urine Chloride Vancomycin Trough Coronavirus (PCR) Crossmatch 06/24/20 06/24/20 06/24/20 04:41 05:57 06:30 WBC 34.3 H RBC Hgb 10.9 L Hct 32.6 L MCHC RDW Plt Count Lymph % (Auto) 2.0 L Weber % (Auto) Lymph # (Auto) 0.7 L Weber # (Auto) 1.2 H Eos # (Auto) Seg Neutrophils % Seg Neuts % (Manual) 96.0 H Lymphocytes % (Manual) 3.0 L Monocytes % (Manual) Nucleated RBC % Seg Neutrophils # 32.3 H Seg Neutrophils # Man 32.9 H Lymphocytes # (Manual) 1.0 L Monocytes # (Manual) Eosinophils # (Manual) PT INR APTT D-Dimer Heparin Anti-Xa Level ABG pH POC ABG pCO2 POC ABG pO2 71.1 L ABG pO2 ABG HCO3 ABG Hemoglobin ABG Oxyhemoglobin 92.4 L ABG Sodium 115.6 L ABG Potassium ABG Chloride ABG Glucose 159 H Carboxyhemoglobin Sodium Potassium Chloride Carbon Dioxide BUN Creatinine Glucose POC Glucose 143 H Lactic Acid Calcium Phosphorus Magnesium Ferritin Direct Bilirubin AST ALT Alkaline Phosphatase Lactate Dehydrogenase Total Creatine Kinase C-Reactive Protein Total Protein Albumin Triglycerides Arterial Blood Glucose 159 H Arterial Blood Ionized Calcium 4.2 L Urine Creatinine Urine Chloride Vancomycin Trough Coronavirus (PCR) Crossmatch 06/24/20 06/24/20 06/24/20 07:03 09:37 11:56 WBC RBC Hgb Hct MCHC RDW Plt Count Lymph % (Auto) Weber % (Auto) Lymph # (Auto) Weber # (Auto) Eos # (Auto) Seg Neutrophils % Seg Neuts % (Manual) Lymphocytes % (Manual) Monocytes % (Manual) Nucleated RBC % Seg Neutrophils # Seg Neutrophils # Man Lymphocytes # (Manual) Monocytes # (Manual) Eosinophils # (Manual) PT INR APTT D-Dimer Heparin Anti-Xa Level 0.26 L ABG pH POC ABG pCO2 POC ABG pO2 ABG pO2 ABG HCO3 ABG Hemoglobin ABG Oxyhemoglobin ABG Sodium ABG Potassium ABG Chloride ABG Glucose Carboxyhemoglobin Sodium Potassium 5.1 H Chloride Carbon Dioxide BUN 103 H Creatinine 5.0 H Glucose 163 H POC Glucose 149 H Lactic Acid Calcium 7.6 L Phosphorus Magnesium Ferritin Direct Bilirubin AST ALT Alkaline Phosphatase Lactate Dehydrogenase Total Creatine Kinase C-Reactive Protein Total Protein Albumin Triglycerides Arterial Blood Glucose Arterial Blood Ionized Calcium Urine Creatinine Urine Chloride Vancomycin Trough Coronavirus (PCR) Crossmatch 06/24/20 06/25/20 06/25/20 18:09 01:05 03:00 WBC RBC Hgb 10.6 L Hct 32.1 L MCHC RDW Plt Count Lymph % (Auto) Weber % (Auto) Lymph # (Auto) Weber # (Auto) Eos # (Auto) Seg Neutrophils % Seg Neuts % (Manual) Lymphocytes % (Manual) Monocytes % (Manual) Nucleated RBC % Seg Neutrophils # Seg Neutrophils # Man Lymphocytes # (Manual) Monocytes # (Manual) Eosinophils # (Manual) PT INR APTT D-Dimer Heparin Anti-Xa Level ABG pH POC ABG pCO2 POC ABG pO2 ABG pO2 ABG HCO3 ABG Hemoglobin ABG Oxyhemoglobin ABG Sodium ABG Potassium ABG Chloride ABG Glucose Carboxyhemoglobin Sodium Potassium Chloride Carbon Dioxide BUN Creatinine Glucose POC Glucose 141 H 137 H Lactic Acid Calcium Phosphorus Magnesium Ferritin Direct Bilirubin AST ALT Alkaline Phosphatase Lactate Dehydrogenase Total Creatine Kinase C-Reactive Protein Total Protein Albumin Triglycerides Arterial Blood Glucose Arterial Blood Ionized Calcium Urine Creatinine Urine Chloride Vancomycin Trough Coronavirus (PCR) Crossmatch 06/25/20 06/25/20 06/25/20 03:48 05:17 12:08 WBC RBC Hgb Hct MCHC RDW Plt Count Lymph % (Auto) Weber % (Auto) Lymph # (Auto) Weber # (Auto) Eos # (Auto) Seg Neutrophils % Seg Neuts % (Manual) Lymphocytes % (Manual) Monocytes % (Manual) Nucleated RBC % Seg Neutrophils # Seg Neutrophils # Man Lymphocytes # (Manual) Monocytes # (Manual) Eosinophils # (Manual) PT INR APTT D-Dimer Heparin Anti-Xa Level ABG pH POC ABG pCO2 29.4 L POC ABG pO2 67.1 L ABG pO2 ABG HCO3 ABG Hemoglobin 11.5 L ABG Oxyhemoglobin ABG Sodium 124.1 L ABG Potassium 4.6 H ABG Chloride ABG Glucose 159 H Carboxyhemoglobin Sodium Potassium Chloride Carbon Dioxide BUN Creatinine Glucose POC Glucose 149 H 150 H Lactic Acid Calcium Phosphorus Magnesium Ferritin Direct Bilirubin AST ALT Alkaline Phosphatase Lactate Dehydrogenase Total Creatine Kinase C-Reactive Protein Total Protein Albumin Triglycerides Arterial Blood Glucose 159 H Arterial Blood Ionized Calcium 4.2 L Urine Creatinine Urine Chloride Vancomycin Trough Coronavirus (PCR) Crossmatch 06/25/20 06/25/20 06/25/20 16:27 16:35 17:27 WBC RBC Hgb Hct MCHC RDW Plt Count Lymph % (Auto) Weber % (Auto) Lymph # (Auto) Weber # (Auto) Eos # (Auto) Seg Neutrophils % Seg Neuts % (Manual) Lymphocytes % (Manual) Monocytes % (Manual) Nucleated RBC % Seg Neutrophils # Seg Neutrophils # Man Lymphocytes # (Manual) Monocytes # (Manual) Eosinophils # (Manual) PT INR APTT D-Dimer Heparin Anti-Xa Level < 0.10 L ABG pH POC ABG pCO2 POC ABG pO2 ABG pO2 ABG HCO3 ABG Hemoglobin ABG Oxyhemoglobin ABG Sodium ABG Potassium ABG Chloride ABG Glucose Carboxyhemoglobin Sodium Potassium Chloride Carbon Dioxide BUN Creatinine Glucose POC Glucose 143 H 156 H Lactic Acid Calcium Phosphorus Magnesium Ferritin Direct Bilirubin AST ALT Alkaline Phosphatase Lactate Dehydrogenase Total Creatine Kinase C-Reactive Protein Total Protein Albumin Triglycerides Arterial Blood Glucose Arterial Blood Ionized Calcium Urine Creatinine Urine Chloride Vancomycin Trough Coronavirus (PCR) Crossmatch 06/25/20 06/25/20 06/25/20 20:00 20:55 23:10 WBC 32.7 H RBC 3.06 L Hgb 9.0 L 9.5 L Hct 26.7 L 28.6 L MCHC RDW Plt Count Lymph % (Auto) Weber % (Auto) Lymph # (Auto) Weber # (Auto) Eos # (Auto) Seg Neutrophils % Seg Neuts % (Manual) Lymphocytes % (Manual) 2.0 L Monocytes % (Manual) Nucleated RBC % Seg Neutrophils # Seg Neutrophils # Man 30.7 H Lymphocytes # (Manual) 0.7 L Monocytes # (Manual) 1.3 H Eosinophils # (Manual) PT 17.7 H INR 1.47 H APTT 65.8 H* D-Dimer Heparin Anti-Xa Level ABG pH POC ABG pCO2 POC ABG pO2 ABG pO2 ABG HCO3 ABG Hemoglobin ABG Oxyhemoglobin ABG Sodium ABG Potassium ABG Chloride ABG Glucose Carboxyhemoglobin Sodium Potassium Chloride Carbon Dioxide BUN Creatinine Glucose POC Glucose Lactic Acid Calcium Phosphorus Magnesium Ferritin Direct Bilirubin AST ALT Alkaline Phosphatase Lactate Dehydrogenase Total Creatine Kinase C-Reactive Protein Total Protein Albumin Triglycerides Arterial Blood Glucose Arterial Blood Ionized Calcium Urine Creatinine Urine Chloride Vancomycin Trough Coronavirus (PCR) Crossmatch 06/25/20 06/26/20 06/26/20 23:14 01:30 03:25 WBC RBC Hgb Hct MCHC RDW Plt Count Lymph % (Auto) Weber % (Auto) Lymph # (Auto) Weber # (Auto) Eos # (Auto) Seg Neutrophils % Seg Neuts % (Manual) Lymphocytes % (Manual) Monocytes % (Manual) Nucleated RBC % Seg Neutrophils # Seg Neutrophils # Man Lymphocytes # (Manual) Monocytes # (Manual) Eosinophils # (Manual) PT INR APTT D-Dimer Heparin Anti-Xa Level < 0.10 L ABG pH POC ABG pCO2 POC ABG pO2 ABG pO2 ABG HCO3 ABG Hemoglobin 11.8 L ABG Oxyhemoglobin ABG Sodium 127.1 L ABG Potassium 5.4 H ABG Chloride ABG Glucose 155 H Carboxyhemoglobin 0.3 L Sodium Potassium Chloride Carbon Dioxide BUN Creatinine Glucose POC Glucose 148 H Lactic Acid Calcium Phosphorus Magnesium Ferritin Direct Bilirubin AST ALT Alkaline Phosphatase Lactate Dehydrogenase Total Creatine Kinase C-Reactive Protein Total Protein Albumin Triglycerides Arterial Blood Glucose 155 H Arterial Blood Ionized Calcium 4.2 L Urine Creatinine Urine Chloride Vancomycin Trough Coronavirus (PCR) Crossmatch 06/26/20 06/26/20 06/26/20 03:59 05:14 05:47 WBC 36.5 H RBC 3.26 L Hgb 9.7 L Hct 28.2 L MCHC RDW Plt Count Lymph % (Auto) Weber % (Auto) Lymph # (Auto) Weber # (Auto) Eos # (Auto) Seg Neutrophils % Seg Neuts % (Manual) 92.0 H Lymphocytes % (Manual) 4.0 L Monocytes % (Manual) Nucleated RBC % Seg Neutrophils # Seg Neutrophils # Man 33.6 H Lymphocytes # (Manual) Monocytes # (Manual) Eosinophils # (Manual) PT INR APTT D-Dimer Heparin Anti-Xa Level ABG pH POC ABG pCO2 POC ABG pO2 ABG pO2 ABG HCO3 ABG Hemoglobin ABG Oxyhemoglobin ABG Sodium ABG Potassium ABG Chloride ABG Glucose Carboxyhemoglobin Sodium Potassium 5.9 H Chloride Carbon Dioxide 20 L BUN 144 H Creatinine 6.4 H Glucose 149 H POC Glucose 128 H Lactic Acid Calcium 7.6 L Phosphorus Magnesium Ferritin Direct Bilirubin AST ALT Alkaline Phosphatase Lactate Dehydrogenase Total Creatine Kinase C-Reactive Protein Total Protein Albumin Triglycerides Arterial Blood Glucose Arterial Blood Ionized Calcium Urine Creatinine Urine Chloride Vancomycin Trough Coronavirus (PCR) Crossmatch 06/26/20 06/26/20 06/26/20 05:47 12:47 17:42 WBC RBC Hgb Hct MCHC RDW Plt Count Lymph % (Auto) Weber % (Auto) Lymph # (Auto) Weber # (Auto) Eos # (Auto) Seg Neutrophils % Seg Neuts % (Manual) Lymphocytes % (Manual) Monocytes % (Manual) Nucleated RBC % Seg Neutrophils # Seg Neutrophils # Man Lymphocytes # (Manual) Monocytes # (Manual) Eosinophils # (Manual) PT 17.4 H INR 1.44 H APTT D-Dimer Heparin Anti-Xa Level ABG pH POC ABG pCO2 POC ABG pO2 ABG pO2 ABG HCO3 ABG Hemoglobin ABG Oxyhemoglobin ABG Sodium ABG Potassium ABG Chloride ABG Glucose Carboxyhemoglobin Sodium Potassium Chloride Carbon Dioxide BUN Creatinine Glucose POC Glucose 124 H 127 H Lactic Acid Calcium Phosphorus Magnesium Ferritin Direct Bilirubin AST ALT Alkaline Phosphatase Lactate Dehydrogenase Total Creatine Kinase C-Reactive Protein Total Protein Albumin Triglycerides Arterial Blood Glucose Arterial Blood Ionized Calcium Urine Creatinine Urine Chloride Vancomycin Trough Coronavirus (PCR) Crossmatch 06/26/20 06/27/20 06/27/20 23:30 03:32 04:00 WBC RBC Hgb 8.7 L Hct 26.4 L MCHC RDW Plt Count Lymph % (Auto) Weber % (Auto) Lymph # (Auto) Weber # (Auto) Eos # (Auto) Seg Neutrophils % Seg Neuts % (Manual) Lymphocytes % (Manual) Monocytes % (Manual) Nucleated RBC % Seg Neutrophils # Seg Neutrophils # Man Lymphocytes # (Manual) Monocytes # (Manual) Eosinophils # (Manual) PT INR APTT D-Dimer Heparin Anti-Xa Level ABG pH 7.298 L POC ABG pCO2 POC ABG pO2 ABG pO2 ABG HCO3 ABG Hemoglobin 9.6 L ABG Oxyhemoglobin ABG Sodium 124.4 L ABG Potassium 6.6 H ABG Chloride ABG Glucose 136 H Carboxyhemoglobin Sodium Potassium Chloride Carbon Dioxide BUN Creatinine Glucose POC Glucose 123 H Lactic Acid Calcium Phosphorus Magnesium Ferritin Direct Bilirubin AST ALT Alkaline Phosphatase Lactate Dehydrogenase Total Creatine Kinase C-Reactive Protein Total Protein Albumin Triglycerides Arterial Blood Glucose 136 H Arterial Blood Ionized Calcium 4.1 L Urine Creatinine Urine Chloride Vancomycin Trough Coronavirus (PCR) Crossmatch 06/27/20 06/27/20 06/27/20 05:26 10:14 11:58 WBC RBC Hgb Hct MCHC RDW Plt Count Lymph % (Auto) Weber % (Auto) Lymph # (Auto) Weber # (Auto) Eos # (Auto) Seg Neutrophils % Seg Neuts % (Manual) Lymphocytes % (Manual) Monocytes % (Manual) Nucleated RBC % Seg Neutrophils # Seg Neutrophils # Man Lymphocytes # (Manual) Monocytes # (Manual) Eosinophils # (Manual) PT INR APTT D-Dimer Heparin Anti-Xa Level ABG pH POC ABG pCO2 POC ABG pO2 ABG pO2 ABG HCO3 ABG Hemoglobin ABG Oxyhemoglobin ABG Sodium ABG Potassium ABG Chloride ABG Glucose Carboxyhemoglobin Sodium 136 L Potassium 7.0 H* Chloride 97.8 L Carbon Dioxide BUN 172 H Creatinine 7.4 H Glucose 129 H POC Glucose 124 H 115 H Lactic Acid Calcium 7.6 L Phosphorus Magnesium Ferritin Direct Bilirubin AST ALT Alkaline Phosphatase Lactate Dehydrogenase Total Creatine Kinase C-Reactive Protein Total Protein Albumin Triglycerides Arterial Blood Glucose Arterial Blood Ionized Calcium Urine Creatinine Urine Chloride Vancomycin Trough Coronavirus (PCR) Crossmatch 06/27/20 06/27/20 06/27/20 17:32 18:30 23:24 WBC RBC Hgb Hct MCHC RDW Plt Count Lymph % (Auto) Weber % (Auto) Lymph # (Auto) Weber # (Auto) Eos # (Auto) Seg Neutrophils % Seg Neuts % (Manual) Lymphocytes % (Manual) Monocytes % (Manual) Nucleated RBC % Seg Neutrophils # Seg Neutrophils # Man Lymphocytes # (Manual) Monocytes # (Manual) Eosinophils # (Manual) PT INR APTT D-Dimer Heparin Anti-Xa Level ABG pH POC ABG pCO2 POC ABG pO2 ABG pO2 ABG HCO3 ABG Hemoglobin ABG Oxyhemoglobin ABG Sodium ABG Potassium ABG Chloride ABG Glucose Carboxyhemoglobin Sodium Potassium 7.3 H* Chloride Carbon Dioxide BUN Creatinine Glucose POC Glucose 122 H 116 H Lactic Acid Calcium Phosphorus Magnesium Ferritin Direct Bilirubin AST ALT Alkaline Phosphatase Lactate Dehydrogenase Total Creatine Kinase C-Reactive Protein Total Protein Albumin Triglycerides Arterial Blood Glucose Arterial Blood Ionized Calcium Urine Creatinine Urine Chloride Vancomycin Trough Coronavirus (PCR) Crossmatch 06/28/20 06/28/20 06/28/20 00:00 02:16 05:37 WBC RBC Hgb Hct MCHC RDW Plt Count Lymph % (Auto) Weber % (Auto) Lymph # (Auto) Weber # (Auto) Eos # (Auto) Seg Neutrophils % Seg Neuts % (Manual) Lymphocytes % (Manual) Monocytes % (Manual) Nucleated RBC % Seg Neutrophils # Seg Neutrophils # Man Lymphocytes # (Manual) Monocytes # (Manual) Eosinophils # (Manual) PT INR APTT D-Dimer Heparin Anti-Xa Level ABG pH POC ABG pCO2 POC ABG pO2 79.0 L ABG pO2 ABG HCO3 ABG Hemoglobin 11.7 L ABG Oxyhemoglobin ABG Sodium 128.1 L ABG Potassium 6.6 H ABG Chloride ABG Glucose 124 H Carboxyhemoglobin Sodium Potassium 7.3 H* Chloride Carbon Dioxide BUN Creatinine Glucose POC Glucose 115 H Lactic Acid Calcium Phosphorus Magnesium Ferritin Direct Bilirubin AST ALT Alkaline Phosphatase Lactate Dehydrogenase Total Creatine Kinase C-Reactive Protein Total Protein Albumin Triglycerides Arterial Blood Glucose 124 H Arterial Blood Ionized Calcium 4.2 L Urine Creatinine Urine Chloride Vancomycin Trough Coronavirus (PCR) Crossmatch 06/28/20 06/28/20 06/28/20 10:03 10:03 11:51 WBC 33.6 H RBC 3.03 L Hgb 8.9 L Hct 27.0 L MCHC RDW Plt Count Lymph % (Auto) Weber % (Auto) Lymph # (Auto) Weber # (Auto) Eos # (Auto) Seg Neutrophils % Seg Neuts % (Manual) Lymphocytes % (Manual) Monocytes % (Manual) Nucleated RBC % Seg Neutrophils # Seg Neutrophils # Man Lymphocytes # (Manual) Monocytes # (Manual) Eosinophils # (Manual) PT INR APTT D-Dimer Heparin Anti-Xa Level ABG pH POC ABG pCO2 POC ABG pO2 ABG pO2 ABG HCO3 ABG Hemoglobin ABG Oxyhemoglobin ABG Sodium ABG Potassium ABG Chloride ABG Glucose Carboxyhemoglobin Sodium 136 L Potassium 6.5 H* Chloride Carbon Dioxide 20 L BUN 129 H Creatinine 5.8 H Glucose 113 H POC Glucose 107 H Lactic Acid Calcium 7.6 L Phosphorus Magnesium Ferritin Direct Bilirubin AST ALT Alkaline Phosphatase Lactate Dehydrogenase Total Creatine Kinase C-Reactive Protein Total Protein Albumin Triglycerides Arterial Blood Glucose Arterial Blood Ionized Calcium Urine Creatinine Urine Chloride Vancomycin Trough Coronavirus (PCR) Crossmatch 06/28/20 06/28/20 06/29/20 17:45 Unknown 03:15 WBC RBC Hgb Hct MCHC RDW Plt Count Lymph % (Auto) Weber % (Auto) Lymph # (Auto) Weber # (Auto) Eos # (Auto) Seg Neutrophils % Seg Neuts % (Manual) Lymphocytes % (Manual) Monocytes % (Manual) Nucleated RBC % Seg Neutrophils # Seg Neutrophils # Man Lymphocytes # (Manual) Monocytes # (Manual) Eosinophils # (Manual) PT INR APTT D-Dimer Heparin Anti-Xa Level ABG pH POC ABG pCO2 POC ABG pO2 ABG pO2 ABG HCO3 ABG Hemoglobin 7.8 L ABG Oxyhemoglobin ABG Sodium 127.4 L ABG Potassium 5.5 H ABG Chloride 97.0 L ABG Glucose 96 H Carboxyhemoglobin Sodium Potassium 5.4 H Chloride Carbon Dioxide BUN Creatinine Glucose POC Glucose 117 H Lactic Acid Calcium Phosphorus Magnesium Ferritin Direct Bilirubin AST ALT Alkaline Phosphatase Lactate Dehydrogenase Total Creatine Kinase C-Reactive Protein Total Protein Albumin Triglycerides Arterial Blood Glucose 96 H Arterial Blood Ionized Calcium 4.0 L Urine Creatinine Urine Chloride Vancomycin Trough Coronavirus (PCR) Crossmatch 06/29/20 06/29/20 06/29/20 03:45 Unknown Unknown WBC RBC Hgb Hct MCHC RDW Plt Count Lymph % (Auto) Weber % (Auto) Lymph # (Auto) Weber # (Auto) Eos # (Auto) Seg Neutrophils % Seg Neuts % (Manual) Lymphocytes % (Manual) Monocytes % (Manual) Nucleated RBC % Seg Neutrophils # Seg Neutrophils # Man Lymphocytes # (Manual) Monocytes # (Manual) Eosinophils # (Manual) PT INR APTT D-Dimer Heparin Anti-Xa Level ABG pH POC ABG pCO2 POC ABG pO2 ABG pO2 ABG HCO3 ABG Hemoglobin ABG Oxyhemoglobin ABG Sodium ABG Potassium ABG Chloride ABG Glucose Carboxyhemoglobin Sodium 135 L Potassium 6.0 H 6.1 H* Chloride 94.8 L Carbon Dioxide BUN 109 H 114 H Creatinine 5.5 H Glucose POC Glucose Lactic Acid Calcium 7.4 L Phosphorus Magnesium Ferritin Direct Bilirubin AST 47 H ALT Alkaline Phosphatase Lactate Dehydrogenase Total Creatine Kinase C-Reactive Protein Total Protein 4.9 L Albumin 2.2 L Triglycerides Arterial Blood Glucose Arterial Blood Ionized Calcium Urine Creatinine Urine Chloride Vancomycin Trough Coronavirus (PCR) Crossmatch 06/29/20 06/29/20 06/30/20 Unknown Unknown 03:32 WBC 20.7 H RBC 2.57 L Hgb 7.6 L Hct 23.0 L MCHC RDW Plt Count Lymph % (Auto) Weber % (Auto) Lymph # (Auto) Weber # (Auto) Eos # (Auto) Seg Neutrophils % Seg Neuts % (Manual) Lymphocytes % (Manual) Monocytes % (Manual) Nucleated RBC % Seg Neutrophils # Seg Neutrophils # Man Lymphocytes # (Manual) Monocytes # (Manual) Eosinophils # (Manual) PT INR APTT D-Dimer Heparin Anti-Xa Level ABG pH POC ABG pCO2 POC ABG pO2 ABG pO2 ABG HCO3 ABG Hemoglobin 11.4 L ABG Oxyhemoglobin ABG Sodium 130.1 L ABG Potassium 5.0 H ABG Chloride ABG Glucose Carboxyhemoglobin Sodium Potassium Chloride Carbon Dioxide BUN Creatinine Glucose POC Glucose Lactic Acid Calcium Phosphorus Magnesium Ferritin Direct Bilirubin AST ALT Alkaline Phosphatase Lactate Dehydrogenase Total Creatine Kinase 618 H C-Reactive Protein Total Protein Albumin Triglycerides Arterial Blood Glucose Arterial Blood Ionized Calcium 3.9 L Urine Creatinine Urine Chloride Vancomycin Trough Coronavirus (PCR) Crossmatch 06/30/20 06/30/20 06/30/20 03:50 03:50 11:39 WBC 13.1 H RBC Hgb Hct MCHC RDW Plt Count Lymph % (Auto) Weber % (Auto) Lymph # (Auto) Weber # (Auto) Eos # (Auto) Seg Neutrophils % Seg Neuts % (Manual) 95.0 H Lymphocytes % (Manual) 3.0 L Monocytes % (Manual) Nucleated RBC % Seg Neutrophils # Seg Neutrophils # Man 12.4 H Lymphocytes # (Manual) 0.4 L Monocytes # (Manual) Eosinophils # (Manual) PT INR APTT D-Dimer Heparin Anti-Xa Level ABG pH POC ABG pCO2 POC ABG pO2 ABG pO2 ABG HCO3 ABG Hemoglobin ABG Oxyhemoglobin ABG Sodium ABG Potassium ABG Chloride ABG Glucose Carboxyhemoglobin Sodium 135 L Potassium 5.4 H D Chloride 93.6 L Carbon Dioxide BUN 85 H Creatinine 4.6 H Glucose POC Glucose 111 H Lactic Acid Calcium 7.1 L Phosphorus 9.40 H Magnesium Ferritin Direct Bilirubin AST ALT Alkaline Phosphatase Lactate Dehydrogenase Total Creatine Kinase C-Reactive Protein Total Protein Albumin Triglycerides Arterial Blood Glucose Arterial Blood Ionized Calcium Urine Creatinine Urine Chloride Vancomycin Trough Coronavirus (PCR) Crossmatch 06/30/20 06/30/20 07/01/20 13:12 Unknown 03:19 WBC RBC Hgb 7.8 L D Hct 23.2 L D MCHC RDW Plt Count Lymph % (Auto) Weber % (Auto) Lymph # (Auto) Weber # (Auto) Eos # (Auto) Seg Neutrophils % Seg Neuts % (Manual) Lymphocytes % (Manual) Monocytes % (Manual) Nucleated RBC % Seg Neutrophils # Seg Neutrophils # Man Lymphocytes # (Manual) Monocytes # (Manual) Eosinophils # (Manual) PT INR APTT D-Dimer Heparin Anti-Xa Level ABG pH 7.461 H POC ABG pCO2 POC ABG pO2 77.2 L ABG pO2 ABG HCO3 ABG Hemoglobin 6.9 L ABG Oxyhemoglobin ABG Sodium 128.5 L ABG Potassium ABG Chloride 97.0 L ABG Glucose Carboxyhemoglobin Sodium Potassium Chloride Carbon Dioxide BUN Creatinine Glucose POC Glucose Lactic Acid Calcium Phosphorus Magnesium Ferritin Direct Bilirubin AST ALT Alkaline Phosphatase Lactate Dehydrogenase Total Creatine Kinase C-Reactive Protein Total Protein Albumin Triglycerides Arterial Blood Glucose Arterial Blood Ionized Calcium 3.7 L Urine Creatinine Urine Chloride Vancomycin Trough Coronavirus (PCR) Positive A Crossmatch 07/01/20 07/01/20 07/01/20 06:00 06:00 11:04 WBC 16.7 H RBC 2.16 L Hgb 6.4 L Hct 19.2 L* MCHC RDW Plt Count Lymph % (Auto) Weber % (Auto) Lymph # (Auto) Weber # (Auto) Eos # (Auto) Seg Neutrophils % Seg Neuts % (Manual) Lymphocytes % (Manual) Monocytes % (Manual) Nucleated RBC % Seg Neutrophils # Seg Neutrophils # Man Lymphocytes # (Manual) Monocytes # (Manual) Eosinophils # (Manual) PT INR APTT D-Dimer Heparin Anti-Xa Level ABG pH POC ABG pCO2 POC ABG pO2 ABG pO2 ABG HCO3 ABG Hemoglobin ABG Oxyhemoglobin ABG Sodium ABG Potassium ABG Chloride ABG Glucose Carboxyhemoglobin Sodium 136 L Potassium Chloride 95.8 L Carbon Dioxide BUN 72 H Creatinine 4.3 H Glucose POC Glucose Lactic Acid Calcium 6.7 L Phosphorus Magnesium Ferritin Direct Bilirubin AST ALT Alkaline Phosphatase Lactate Dehydrogenase Total Creatine Kinase C-Reactive Protein Total Protein Albumin Triglycerides 250 H Arterial Blood Glucose Arterial Blood Ionized Calcium Urine Creatinine Urine Chloride Vancomycin Trough Coronavirus (PCR) Crossmatch See Detail 07/02/20 07/02/20 07/02/20 04:44 06:00 11:33 WBC 14.6 H RBC 2.47 L Hgb 7.4 L Hct 21.8 L MCHC RDW Plt Count Lymph % (Auto) Weber % (Auto) Lymph # (Auto) Weber # (Auto) Eos # (Auto) Seg Neutrophils % Seg Neuts % (Manual) Lymphocytes % (Manual) Monocytes % (Manual) Nucleated RBC % Seg Neutrophils # Seg Neutrophils # Man Lymphocytes # (Manual) Monocytes # (Manual) Eosinophils # (Manual) PT INR APTT D-Dimer Heparin Anti-Xa Level ABG pH 7.457 H POC ABG pCO2 POC ABG pO2 79.4 L ABG pO2 ABG HCO3 ABG Hemoglobin 8.5 L ABG Oxyhemoglobin ABG Sodium 128.4 L ABG Potassium ABG Chloride 97.0 L ABG Glucose 100 H Carboxyhemoglobin Sodium 133 L Potassium 5.2 H Chloride 93.3 L Carbon Dioxide BUN 66 H Creatinine 4.1 H Glucose 102 H POC Glucose Lactic Acid Calcium 7.2 L Phosphorus Magnesium Ferritin Direct Bilirubin AST ALT Alkaline Phosphatase Lactate Dehydrogenase Total Creatine Kinase C-Reactive Protein Total Protein Albumin Triglycerides Arterial Blood Glucose 100 H Arterial Blood Ionized Calcium 3.9 L Urine Creatinine Urine Chloride Vancomycin Trough Coronavirus (PCR) Crossmatch 07/02/20 07/03/20 07/03/20 11:33 03:54 09:15 WBC 16.6 H RBC 2.44 L Hgb 7.3 L Hct 21.4 L MCHC RDW Plt Count Lymph % (Auto) Weber % (Auto) Lymph # (Auto) Weber # (Auto) Eos # (Auto) Seg Neutrophils % Seg Neuts % (Manual) Lymphocytes % (Manual) Monocytes % (Manual) Nucleated RBC % Seg Neutrophils # Seg Neutrophils # Man Lymphocytes # (Manual) Monocytes # (Manual) Eosinophils # (Manual) PT INR APTT D-Dimer Heparin Anti-Xa Level ABG pH POC ABG pCO2 POC ABG pO2 66.1 L ABG pO2 ABG HCO3 ABG Hemoglobin 8.0 L ABG Oxyhemoglobin ABG Sodium 124.6 L ABG Potassium 5.5 H ABG Chloride 96.0 L ABG Glucose 111 H Carboxyhemoglobin Sodium Potassium Chloride Carbon Dioxide BUN Creatinine Glucose POC Glucose Lactic Acid Calcium Phosphorus Magnesium Ferritin Direct Bilirubin 0.7 H AST 94 H ALT 60 H Alkaline Phosphatase Lactate Dehydrogenase Total Creatine Kinase C-Reactive Protein Total Protein 4.4 L Albumin 1.9 L Triglycerides Arterial Blood Glucose 111 H Arterial Blood Ionized Calcium 3.8 L Urine Creatinine Urine Chloride Vancomycin Trough Coronavirus (PCR) Crossmatch 07/03/20 07/03/20 07/03/20 09:15 10:10 14:50 WBC RBC Hgb Hct MCHC RDW Plt Count Lymph % (Auto) Weber % (Auto) Lymph # (Auto) Weber # (Auto) Eos # (Auto) Seg Neutrophils % Seg Neuts % (Manual) Lymphocytes % (Manual) Monocytes % (Manual) Nucleated RBC % Seg Neutrophils # Seg Neutrophils # Man Lymphocytes # (Manual) Monocytes # (Manual) Eosinophils # (Manual) PT INR APTT D-Dimer 6608.00 H Heparin Anti-Xa Level ABG pH POC ABG pCO2 POC ABG pO2 ABG pO2 ABG HCO3 ABG Hemoglobin ABG Oxyhemoglobin ABG Sodium ABG Potassium ABG Chloride ABG Glucose Carboxyhemoglobin Sodium 133 L Potassium 6.2 H* Chloride 93.1 L Carbon Dioxide BUN 89 H Creatinine 5.1 H Glucose POC Glucose Lactic Acid Calcium 7.0 L Phosphorus Magnesium Ferritin Direct Bilirubin AST ALT Alkaline Phosphatase Lactate Dehydrogenase Total Creatine Kinase C-Reactive Protein Total Protein Albumin Triglycerides Arterial Blood Glucose Arterial Blood Ionized Calcium Urine Creatinine Urine Chloride Vancomycin Trough Coronavirus (PCR) Positive A Crossmatch 07/03/20 07/03/20 07/03/20 14:50 14:50 14:50 WBC RBC Hgb Hct MCHC RDW Plt Count Lymph % (Auto) Weber % (Auto) Lymph # (Auto) Weber # (Auto) Eos # (Auto) Seg Neutrophils % Seg Neuts % (Manual) Lymphocytes % (Manual) Monocytes % (Manual) Nucleated RBC % Seg Neutrophils # Seg Neutrophils # Man Lymphocytes # (Manual) Monocytes # (Manual) Eosinophils # (Manual) PT INR APTT D-Dimer Heparin Anti-Xa Level ABG pH POC ABG pCO2 POC ABG pO2 ABG pO2 ABG HCO3 ABG Hemoglobin ABG Oxyhemoglobin ABG Sodium ABG Potassium ABG Chloride ABG Glucose Carboxyhemoglobin Sodium Potassium Chloride Carbon Dioxide BUN Creatinine Glucose POC Glucose Lactic Acid < 0.20 L Calcium Phosphorus Magnesium Ferritin 1171.0 H Direct Bilirubin AST ALT Alkaline Phosphatase Lactate Dehydrogenase 525 H Total Creatine Kinase C-Reactive Protein 31.50 H Total Protein Albumin Triglycerides Arterial Blood Glucose Arterial Blood Ionized Calcium Urine Creatinine Urine Chloride Vancomycin Trough Coronavirus (PCR) Crossmatch 07/03/20 07/04/20 07/04/20 16:47 05:20 05:20 WBC 11.8 H RBC 2.32 L Hgb 6.7 L Hct 20.8 L MCHC RDW Plt Count Lymph % (Auto) 2.6 L Weber % (Auto) Lymph # (Auto) 0.3 L Weber # (Auto) Eos # (Auto) Seg Neutrophils % Seg Neuts % (Manual) Lymphocytes % (Manual) Monocytes % (Manual) Nucleated RBC % Seg Neutrophils # 11.0 H Seg Neutrophils # Man Lymphocytes # (Manual) Monocytes # (Manual) Eosinophils # (Manual) PT INR APTT D-Dimer Heparin Anti-Xa Level ABG pH POC ABG pCO2 POC ABG pO2 ABG pO2 ABG HCO3 ABG Hemoglobin ABG Oxyhemoglobin ABG Sodium ABG Potassium ABG Chloride ABG Glucose Carboxyhemoglobin Sodium Potassium 6.0 H Chloride 97.8 L Carbon Dioxide BUN 75 H Creatinine 4.5 H Glucose 121 H POC Glucose 107 H Lactic Acid Calcium 7.9 L Phosphorus Magnesium Ferritin Direct Bilirubin AST ALT Alkaline Phosphatase Lactate Dehydrogenase Total Creatine Kinase C-Reactive Protein Total Protein Albumin Triglycerides Arterial Blood Glucose Arterial Blood Ionized Calcium Urine Creatinine Urine Chloride Vancomycin Trough Coronavirus (PCR) Crossmatch 07/04/20 07/04/20 07/04/20 05:20 05:50 09:25 WBC RBC Hgb Hct MCHC RDW Plt Count Lymph % (Auto) Weber % (Auto) Lymph # (Auto) Weber # (Auto) Eos # (Auto) Seg Neutrophils % Seg Neuts % (Manual) Lymphocytes % (Manual) Monocytes % (Manual) Nucleated RBC % Seg Neutrophils # Seg Neutrophils # Man Lymphocytes # (Manual) Monocytes # (Manual) Eosinophils # (Manual) PT INR APTT D-Dimer Heparin Anti-Xa Level ABG pH 7.324 L POC ABG pCO2 POC ABG pO2 ABG pO2 98.9 H ABG HCO3 26.8 H ABG Hemoglobin < 5.1 L ABG Oxyhemoglobin ABG Sodium ABG Potassium ABG Chloride ABG Glucose Carboxyhemoglobin Sodium Potassium Chloride Carbon Dioxide BUN Creatinine Glucose POC Glucose 114 H Lactic Acid Calcium Phosphorus Magnesium Ferritin Direct Bilirubin AST ALT Alkaline Phosphatase Lactate Dehydrogenase Total Creatine Kinase C-Reactive Protein Total Protein Albumin Triglycerides Arterial Blood Glucose Arterial Blood Ionized Calcium Urine Creatinine Urine Chloride Vancomycin Trough Coronavirus (PCR) Crossmatch See Detail 07/04/20 07/04/20 07/04/20 12:33 17:41 23:04 WBC RBC Hgb Hct MCHC RDW Plt Count Lymph % (Auto) Weber % (Auto) Lymph # (Auto) Weber # (Auto) Eos # (Auto) Seg Neutrophils % Seg Neuts % (Manual) Lymphocytes % (Manual) Monocytes % (Manual) Nucleated RBC % Seg Neutrophils # Seg Neutrophils # Man Lymphocytes # (Manual) Monocytes # (Manual) Eosinophils # (Manual) PT INR APTT D-Dimer Heparin Anti-Xa Level ABG pH POC ABG pCO2 POC ABG pO2 ABG pO2 ABG HCO3 ABG Hemoglobin ABG Oxyhemoglobin ABG Sodium ABG Potassium ABG Chloride ABG Glucose Carboxyhemoglobin Sodium Potassium Chloride Carbon Dioxide BUN Creatinine Glucose POC Glucose 119 H 109 H 116 H Lactic Acid Calcium Phosphorus Magnesium Ferritin Direct Bilirubin AST ALT Alkaline Phosphatase Lactate Dehydrogenase Total Creatine Kinase C-Reactive Protein Total Protein Albumin Triglycerides Arterial Blood Glucose Arterial Blood Ionized Calcium Urine Creatinine Urine Chloride Vancomycin Trough Coronavirus (PCR) Crossmatch 07/05/20 07/05/20 07/05/20 04:30 08:21 08:21 WBC RBC 2.77 L Hgb 7.9 L Hct 23.9 L MCHC RDW 16.7 H Plt Count Lymph % (Auto) 7.5 L Weber % (Auto) Lymph # (Auto) 0.7 L Weber # (Auto) Eos # (Auto) Seg Neutrophils % 85.8 H Seg Neuts % (Manual) Lymphocytes % (Manual) Monocytes % (Manual) Nucleated RBC % Seg Neutrophils # 7.8 H Seg Neutrophils # Man Lymphocytes # (Manual) Monocytes # (Manual) Eosinophils # (Manual) PT INR APTT D-Dimer Heparin Anti-Xa Level ABG pH 7.295 L POC ABG pCO2 POC ABG pO2 ABG pO2 151.9 H ABG HCO3 26.8 H ABG Hemoglobin 7.3 L ABG Oxyhemoglobin ABG Sodium ABG Potassium ABG Chloride ABG Glucose Carboxyhemoglobin Sodium Potassium Chloride Carbon Dioxide BUN Creatinine Glucose POC Glucose Lactic Acid Calcium Phosphorus Magnesium Ferritin Direct Bilirubin AST ALT Alkaline Phosphatase Lactate Dehydrogenase Total Creatine Kinase C-Reactive Protein Total Protein Albumin Triglycerides 258 H Arterial Blood Glucose Arterial Blood Ionized Calcium Urine Creatinine Urine Chloride Vancomycin Trough Coronavirus (PCR) Crossmatch 07/05/20 07/05/20 07/06/20 08:21 12:12 04:29 WBC RBC Hgb Hct MCHC RDW Plt Count Lymph % (Auto) Weber % (Auto) Lymph # (Auto) Weber # (Auto) Eos # (Auto) Seg Neutrophils % Seg Neuts % (Manual) Lymphocytes % (Manual) Monocytes % (Manual) Nucleated RBC % Seg Neutrophils # Seg Neutrophils # Man Lymphocytes # (Manual) Monocytes # (Manual) Eosinophils # (Manual) PT INR APTT D-Dimer Heparin Anti-Xa Level ABG pH 7.291 L POC ABG pCO2 51.3 H POC ABG pO2 ABG pO2 ABG HCO3 ABG Hemoglobin 8.5 L ABG Oxyhemoglobin ABG Sodium 129.6 L ABG Potassium 4.8 H ABG Chloride 96.0 L ABG Glucose Carboxyhemoglobin Sodium 133 L Potassium 5.6 H Chloride 94.4 L Carbon Dioxide BUN 80 H Creatinine 4.2 H Glucose 114 H POC Glucose 106 H Lactic Acid Calcium 7.6 L Phosphorus Magnesium Ferritin Direct Bilirubin 0.5 H AST 75 H ALT 86 H Alkaline Phosphatase Lactate Dehydrogenase Total Creatine Kinase C-Reactive Protein Total Protein 5.6 L D Albumin 1.9 L Triglycerides Arterial Blood Glucose Arterial Blood Ionized Calcium 4.2 L Urine Creatinine Urine Chloride Vancomycin Trough Coronavirus (PCR) Crossmatch 07/06/20 07/06/20 07/06/20 11:35 11:35 12:16 WBC RBC 2.54 L Hgb 7.5 L Hct 21.5 L MCHC 35 H RDW 15.7 H Plt Count Lymph % (Auto) Weber % (Auto) Lymph # (Auto) Weber # (Auto) Eos # (Auto) Seg Neutrophils % Seg Neuts % (Manual) Lymphocytes % (Manual) Monocytes % (Manual) Nucleated RBC % Seg Neutrophils # Seg Neutrophils # Man Lymphocytes # (Manual) Monocytes # (Manual) Eosinophils # (Manual) PT INR APTT D-Dimer Heparin Anti-Xa Level ABG pH POC ABG pCO2 POC ABG pO2 ABG pO2 ABG HCO3 ABG Hemoglobin ABG Oxyhemoglobin ABG Sodium ABG Potassium ABG Chloride ABG Glucose Carboxyhemoglobin Sodium 130 L Potassium Chloride 92.2 L Carbon Dioxide 19 L D BUN 107 H Creatinine 5.1 H Glucose 106 H POC Glucose 106 H Lactic Acid Calcium 7.5 L Phosphorus Magnesium Ferritin Direct Bilirubin AST ALT Alkaline Phosphatase Lactate Dehydrogenase Total Creatine Kinase C-Reactive Protein Total Protein Albumin Triglycerides Arterial Blood Glucose Arterial Blood Ionized Calcium Urine Creatinine Urine Chloride Vancomycin Trough Coronavirus (PCR) Crossmatch 07/06/20 07/06/20 07/06/20 17:01 21:56 23:41 WBC RBC Hgb Hct MCHC RDW Plt Count Lymph % (Auto) Weber % (Auto) Lymph # (Auto) Weber # (Auto) Eos # (Auto) Seg Neutrophils % Seg Neuts % (Manual) Lymphocytes % (Manual) Monocytes % (Manual) Nucleated RBC % Seg Neutrophils # Seg Neutrophils # Man Lymphocytes # (Manual) Monocytes # (Manual) Eosinophils # (Manual) PT INR APTT D-Dimer Heparin Anti-Xa Level ABG pH POC ABG pCO2 POC ABG pO2 ABG pO2 ABG HCO3 ABG Hemoglobin ABG Oxyhemoglobin ABG Sodium ABG Potassium ABG Chloride ABG Glucose Carboxyhemoglobin Sodium 135 L Potassium 5.1 H Chloride Carbon Dioxide BUN 73 H Creatinine 4.0 H Glucose 112 H POC Glucose 109 H 111 H Lactic Acid Calcium 7.8 L Phosphorus Magnesium Ferritin Direct Bilirubin AST ALT Alkaline Phosphatase Lactate Dehydrogenase Total Creatine Kinase C-Reactive Protein Total Protein Albumin Triglycerides Arterial Blood Glucose Arterial Blood Ionized Calcium Urine Creatinine Urine Chloride Vancomycin Trough Coronavirus (PCR) Crossmatch 07/07/20 07/07/20 07/07/20 04:18 05:04 05:29 WBC RBC 2.46 L Hgb 7.6 L Hct 21.5 L MCHC 35 H RDW 16.5 H Plt Count Lymph % (Auto) Weber % (Auto) Lymph # (Auto) Weber # (Auto) Eos # (Auto) Seg Neutrophils % Seg Neuts % (Manual) 82.0 H Lymphocytes % (Manual) Monocytes % (Manual) Nucleated RBC % 1.0 H Seg Neutrophils # Seg Neutrophils # Man Lymphocytes # (Manual) 1.1 L Monocytes # (Manual) Eosinophils # (Manual) PT INR APTT D-Dimer Heparin Anti-Xa Level ABG pH POC ABG pCO2 POC ABG pO2 79.6 L ABG pO2 ABG HCO3 ABG Hemoglobin 8.2 L ABG Oxyhemoglobin ABG Sodium 133.3 L ABG Potassium 4.7 H ABG Chloride ABG Glucose 135 H Carboxyhemoglobin Sodium Potassium Chloride Carbon Dioxide BUN Creatinine Glucose POC Glucose 112 H Lactic Acid Calcium Phosphorus Magnesium Ferritin Direct Bilirubin AST ALT Alkaline Phosphatase Lactate Dehydrogenase Total Creatine Kinase C-Reactive Protein Total Protein Albumin Triglycerides Arterial Blood Glucose 135 H Arterial Blood Ionized Calcium 4.5 L Urine Creatinine Urine Chloride Vancomycin Trough Coronavirus (PCR) Crossmatch 07/07/20 07/07/20 07/07/20 10:17 12:18 17:43 WBC RBC Hgb Hct MCHC RDW Plt Count Lymph % (Auto) Weber % (Auto) Lymph # (Auto) Weber # (Auto) Eos # (Auto) Seg Neutrophils % Seg Neuts % (Manual) Lymphocytes % (Manual) Monocytes % (Manual) Nucleated RBC % Seg Neutrophils # Seg Neutrophils # Man Lymphocytes # (Manual) Monocytes # (Manual) Eosinophils # (Manual) PT INR APTT D-Dimer Heparin Anti-Xa Level ABG pH POC ABG pCO2 POC ABG pO2 ABG pO2 ABG HCO3 ABG Hemoglobin ABG Oxyhemoglobin ABG Sodium ABG Potassium ABG Chloride ABG Glucose Carboxyhemoglobin Sodium 136 L Potassium Chloride 96.8 L Carbon Dioxide BUN 82 H Creatinine 4.3 H Glucose 129 H POC Glucose 108 H 116 H Lactic Acid Calcium 7.8 L Phosphorus Magnesium Ferritin Direct Bilirubin AST ALT Alkaline Phosphatase Lactate Dehydrogenase Total Creatine Kinase C-Reactive Protein Total Protein Albumin Triglycerides Arterial Blood Glucose Arterial Blood Ionized Calcium Urine Creatinine Urine Chloride Vancomycin Trough Coronavirus (PCR) Crossmatch 07/07/20 07/08/20 07/08/20 23:31 04:00 04:00 WBC RBC 2.52 L Hgb 7.3 L Hct 22.2 L MCHC RDW 16.6 H Plt Count Lymph % (Auto) 11.5 L Weber % (Auto) Lymph # (Auto) Weber # (Auto) Eos # (Auto) Seg Neutrophils % 78.2 H Seg Neuts % (Manual) Lymphocytes % (Manual) Monocytes % (Manual) Nucleated RBC % Seg Neutrophils # 8.0 H Seg Neutrophils # Man Lymphocytes # (Manual) Monocytes # (Manual) Eosinophils # (Manual) PT INR APTT D-Dimer Heparin Anti-Xa Level ABG pH POC ABG pCO2 POC ABG pO2 ABG pO2 ABG HCO3 ABG Hemoglobin ABG Oxyhemoglobin ABG Sodium ABG Potassium ABG Chloride ABG Glucose Carboxyhemoglobin Sodium 132 L Potassium 5.4 H Chloride 92.5 L Carbon Dioxide BUN 98 H Creatinine 4.9 H Glucose 105 H POC Glucose 117 H Lactic Acid Calcium 7.9 L Phosphorus Magnesium Ferritin Direct Bilirubin AST ALT Alkaline Phosphatase Lactate Dehydrogenase Total Creatine Kinase C-Reactive Protein Total Protein Albumin Triglycerides Arterial Blood Glucose Arterial Blood Ionized Calcium Urine Creatinine Urine Chloride Vancomycin Trough Coronavirus (PCR) Crossmatch 07/08/20 07/08/20 07/08/20 04:09 11:34 17:05 WBC RBC Hgb Hct MCHC RDW Plt Count Lymph % (Auto) Weber % (Auto) Lymph # (Auto) Weber # (Auto) Eos # (Auto) Seg Neutrophils % Seg Neuts % (Manual) Lymphocytes % (Manual) Monocytes % (Manual) Nucleated RBC % Seg Neutrophils # Seg Neutrophils # Man Lymphocytes # (Manual) Monocytes # (Manual) Eosinophils # (Manual) PT INR APTT D-Dimer Heparin Anti-Xa Level ABG pH 7.220 L POC ABG pCO2 60.5 H POC ABG pO2 ABG pO2 ABG HCO3 ABG Hemoglobin 8.2 L ABG Oxyhemoglobin ABG Sodium 131.3 L ABG Potassium 5.2 H ABG Chloride ABG Glucose 103 H Carboxyhemoglobin Sodium Potassium Chloride Carbon Dioxide BUN Creatinine Glucose POC Glucose 140 H 125 H Lactic Acid Calcium Phosphorus Magnesium Ferritin Direct Bilirubin AST ALT Alkaline Phosphatase Lactate Dehydrogenase Total Creatine Kinase C-Reactive Protein Total Protein Albumin Triglycerides Arterial Blood Glucose 103 H Arterial Blood Ionized Calcium 4.3 L Urine Creatinine Urine Chloride Vancomycin Trough Coronavirus (PCR) Crossmatch 07/08/20 07/08/20 07/09/20 20:21 23:43 05:10 WBC RBC Hgb Hct MCHC RDW Plt Count Lymph % (Auto) Weber % (Auto) Lymph # (Auto) Weber # (Auto) Eos # (Auto) Seg Neutrophils % Seg Neuts % (Manual) Lymphocytes % (Manual) Monocytes % (Manual) Nucleated RBC % Seg Neutrophils # Seg Neutrophils # Man Lymphocytes # (Manual) Monocytes # (Manual) Eosinophils # (Manual) PT INR APTT D-Dimer Heparin Anti-Xa Level ABG pH 7.20 L POC ABG pCO2 69.8 H POC ABG pO2 138.9 H 76.1 L ABG pO2 ABG HCO3 ABG Hemoglobin 11.9 L 8.4 L ABG Oxyhemoglobin ABG Sodium 133.1 L 131.2 L ABG Potassium 5.0 H 4.7 H ABG Chloride ABG Glucose 120 H 102 H Carboxyhemoglobin Sodium Potassium Chloride Carbon Dioxide BUN Creatinine Glucose POC Glucose 118 H Lactic Acid Calcium Phosphorus Magnesium Ferritin Direct Bilirubin AST ALT Alkaline Phosphatase Lactate Dehydrogenase Total Creatine Kinase C-Reactive Protein Total Protein Albumin Triglycerides Arterial Blood Glucose 120 H 102 H Arterial Blood Ionized Calcium 4.4 L 4.3 L Urine Creatinine Urine Chloride Vancomycin Trough Coronavirus (PCR) Crossmatch 07/09/20 07/09/20 07/09/20 11:51 17:04 21:00 WBC RBC Hgb Hct MCHC RDW Plt Count Lymph % (Auto) Weber % (Auto) Lymph # (Auto) Weber # (Auto) Eos # (Auto) Seg Neutrophils % Seg Neuts % (Manual) Lymphocytes % (Manual) Monocytes % (Manual) Nucleated RBC % Seg Neutrophils # Seg Neutrophils # Man Lymphocytes # (Manual) Monocytes # (Manual) Eosinophils # (Manual) PT INR APTT D-Dimer Heparin Anti-Xa Level ABG pH POC ABG pCO2 POC ABG pO2 114.2 H ABG pO2 ABG HCO3 ABG Hemoglobin 7.8 L ABG Oxyhemoglobin ABG Sodium 132.3 L ABG Potassium 4.6 H ABG Chloride ABG Glucose Carboxyhemoglobin Sodium Potassium Chloride Carbon Dioxide BUN Creatinine Glucose POC Glucose 113 H 111 H Lactic Acid Calcium Phosphorus Magnesium Ferritin Direct Bilirubin AST ALT Alkaline Phosphatase Lactate Dehydrogenase Total Creatine Kinase C-Reactive Protein Total Protein Albumin Triglycerides Arterial Blood Glucose Arterial Blood Ionized Calcium 4.4 L Urine Creatinine Urine Chloride Vancomycin Trough Coronavirus (PCR) Crossmatch 07/10/20 07/10/20 07/10/20 03:49 03:55 03:55 WBC 18.1 H RBC 2.37 L Hgb 6.8 L Hct 20.7 L MCHC RDW 16.9 H Plt Count Lymph % (Auto) Weber % (Auto) Lymph # (Auto) Weber # (Auto) Eos # (Auto) Seg Neutrophils % Seg Neuts % (Manual) 79.0 H Lymphocytes % (Manual) 10.0 L Monocytes % (Manual) Nucleated RBC % 1.0 H Seg Neutrophils # Seg Neutrophils # Man 14.3 H Lymphocytes # (Manual) Monocytes # (Manual) Eosinophils # (Manual) 0.7 H PT INR APTT D-Dimer Heparin Anti-Xa Level ABG pH POC ABG pCO2 POC ABG pO2 ABG pO2 ABG HCO3 ABG Hemoglobin 7.7 L ABG Oxyhemoglobin ABG Sodium 130.3 L ABG Potassium 4.6 H ABG Chloride ABG Glucose Carboxyhemoglobin Sodium 136 L Potassium Chloride 96.0 L Carbon Dioxide BUN 76 H Creatinine 3.6 H Glucose POC Glucose Lactic Acid Calcium 7.4 L Phosphorus Magnesium Ferritin Direct Bilirubin AST ALT Alkaline Phosphatase Lactate Dehydrogenase Total Creatine Kinase C-Reactive Protein Total Protein Albumin Triglycerides Arterial Blood Glucose Arterial Blood Ionized Calcium 4.2 L Urine Creatinine Urine Chloride Vancomycin Trough Coronavirus (PCR) Crossmatch 07/10/20 07/11/20 07/11/20 13:24 04:08 06:52 WBC 26.0 H RBC 2.91 L Hgb 8.2 L Hct 24.8 L MCHC RDW 17.2 H Plt Count Lymph % (Auto) Weber % (Auto) Lymph # (Auto) Weber # (Auto) Eos # (Auto) Seg Neutrophils % Seg Neuts % (Manual) Lymphocytes % (Manual) 1.0 L Monocytes % (Manual) 11.0 H Nucleated RBC % Seg Neutrophils # Seg Neutrophils # Man 16.9 H Lymphocytes # (Manual) 0.3 L Monocytes # (Manual) 2.9 H Eosinophils # (Manual) 1.0 H PT INR APTT D-Dimer Heparin Anti-Xa Level ABG pH POC ABG pCO2 POC ABG pO2 ABG pO2 ABG HCO3 ABG Hemoglobin 8.5 L ABG Oxyhemoglobin ABG Sodium 130.6 L ABG Potassium 4.9 H ABG Chloride ABG Glucose 105 H Carboxyhemoglobin Sodium Potassium Chloride Carbon Dioxide BUN Creatinine Glucose POC Glucose Lactic Acid Calcium Phosphorus Magnesium Ferritin Direct Bilirubin AST ALT Alkaline Phosphatase Lactate Dehydrogenase Total Creatine Kinase C-Reactive Protein Total Protein Albumin Triglycerides Arterial Blood Glucose 105 H Arterial Blood Ionized Calcium 4.1 L Urine Creatinine Urine Chloride Vancomycin Trough Coronavirus (PCR) Crossmatch See Detail 07/11/20 07/11/20 07/11/20 06:52 08:48 11:39 WBC RBC Hgb Hct MCHC RDW Plt Count Lymph % (Auto) Weber % (Auto) Lymph # (Auto) Weber # (Auto) Eos # (Auto) Seg Neutrophils % Seg Neuts % (Manual) Lymphocytes % (Manual) Monocytes % (Manual) Nucleated RBC % Seg Neutrophils # Seg Neutrophils # Man Lymphocytes # (Manual) Monocytes # (Manual) Eosinophils # (Manual) PT INR APTT D-Dimer Heparin Anti-Xa Level ABG pH POC ABG pCO2 POC ABG pO2 ABG pO2 ABG HCO3 ABG Hemoglobin ABG Oxyhemoglobin ABG Sodium ABG Potassium ABG Chloride ABG Glucose Carboxyhemoglobin Sodium 133 L 134 L Potassium 5.3 H Chloride 93.5 L 94.8 L Carbon Dioxide BUN 101 H 99 H Creatinine 4.5 H 4.6 H Glucose 102 H POC Glucose 116 H Lactic Acid Calcium 7.8 L 7.6 L Phosphorus Magnesium Ferritin Direct Bilirubin AST ALT Alkaline Phosphatase Lactate Dehydrogenase Total Creatine Kinase C-Reactive Protein Total Protein Albumin Triglycerides Arterial Blood Glucose Arterial Blood Ionized Calcium Urine Creatinine Urine Chloride Vancomycin Trough Coronavirus (PCR) Crossmatch 07/11/20 07/12/20 07/12/20 17:23 00:04 03:20 WBC RBC Hgb Hct MCHC RDW Plt Count Lymph % (Auto) Weber % (Auto) Lymph # (Auto) Weber # (Auto) Eos # (Auto) Seg Neutrophils % Seg Neuts % (Manual) Lymphocytes % (Manual) Monocytes % (Manual) Nucleated RBC % Seg Neutrophils # Seg Neutrophils # Man Lymphocytes # (Manual) Monocytes # (Manual) Eosinophils # (Manual) PT INR APTT D-Dimer Heparin Anti-Xa Level ABG pH POC ABG pCO2 49.1 H POC ABG pO2 130.3 H ABG pO2 ABG HCO3 ABG Hemoglobin 8.7 L ABG Oxyhemoglobin ABG Sodium 135.2 L ABG Potassium 4.7 H ABG Chloride ABG Glucose 128 H Carboxyhemoglobin Sodium Potassium Chloride Carbon Dioxide BUN Creatinine Glucose POC Glucose 142 H 113 H Lactic Acid Calcium Phosphorus Magnesium Ferritin Direct Bilirubin AST ALT Alkaline Phosphatase Lactate Dehydrogenase Total Creatine Kinase C-Reactive Protein Total Protein Albumin Triglycerides Arterial Blood Glucose 128 H Arterial Blood Ionized Calcium 4.4 L Urine Creatinine Urine Chloride Vancomycin Trough Coronavirus (PCR) Crossmatch 07/12/20 07/12/20 07/12/20 03:40 03:40 04:00 WBC 24.3 H RBC 2.83 L Hgb 8.0 L Hct 24.9 L MCHC RDW 17.7 H Plt Count Lymph % (Auto) 5.6 L Weber % (Auto) 7.4 H Lymph # (Auto) Weber # (Auto) 1.8 H Eos # (Auto) 0.7 H Seg Neutrophils % 83.9 H Seg Neuts % (Manual) Lymphocytes % (Manual) Monocytes % (Manual) Nucleated RBC % Seg Neutrophils # 20.4 H Seg Neutrophils # Man Lymphocytes # (Manual) Monocytes # (Manual) Eosinophils # (Manual) PT INR APTT D-Dimer Heparin Anti-Xa Level ABG pH POC ABG pCO2 POC ABG pO2 ABG pO2 ABG HCO3 ABG Hemoglobin ABG Oxyhemoglobin ABG Sodium ABG Potassium ABG Chloride ABG Glucose Carboxyhemoglobin Sodium 134 L Potassium Chloride 95.5 L Carbon Dioxide BUN 79 H Creatinine 3.7 H Glucose 127 H POC Glucose Lactic Acid Calcium 7.8 L Phosphorus Magnesium Ferritin Direct Bilirubin AST ALT Alkaline Phosphatase Lactate Dehydrogenase Total Creatine Kinase C-Reactive Protein Total Protein Albumin Triglycerides 246 H Arterial Blood Glucose Arterial Blood Ionized Calcium Urine Creatinine Urine Chloride Vancomycin Trough Coronavirus (PCR) Crossmatch 07/12/20 07/12/20 07/12/20 05:48 11:50 17:29 WBC RBC Hgb Hct MCHC RDW Plt Count Lymph % (Auto) Weber % (Auto) Lymph # (Auto) Weber # (Auto) Eos # (Auto) Seg Neutrophils % Seg Neuts % (Manual) Lymphocytes % (Manual) Monocytes % (Manual) Nucleated RBC % Seg Neutrophils # Seg Neutrophils # Man Lymphocytes # (Manual) Monocytes # (Manual) Eosinophils # (Manual) PT INR APTT D-Dimer Heparin Anti-Xa Level ABG pH POC ABG pCO2 POC ABG pO2 ABG pO2 ABG HCO3 ABG Hemoglobin ABG Oxyhemoglobin ABG Sodium ABG Potassium ABG Chloride ABG Glucose Carboxyhemoglobin Sodium Potassium Chloride Carbon Dioxide BUN Creatinine Glucose POC Glucose 136 H 113 H 110 H Lactic Acid Calcium Phosphorus Magnesium Ferritin Direct Bilirubin AST ALT Alkaline Phosphatase Lactate Dehydrogenase Total Creatine Kinase C-Reactive Protein Total Protein Albumin Triglycerides Arterial Blood Glucose Arterial Blood Ionized Calcium Urine Creatinine Urine Chloride Vancomycin Trough Coronavirus (PCR) Crossmatch 07/12/20 07/13/20 07/13/20 23:43 03:11 06:59 WBC RBC Hgb Hct MCHC RDW Plt Count Lymph % (Auto) Weber % (Auto) Lymph # (Auto) Weber # (Auto) Eos # (Auto) Seg Neutrophils % Seg Neuts % (Manual) Lymphocytes % (Manual) Monocytes % (Manual) Nucleated RBC % Seg Neutrophils # Seg Neutrophils # Man Lymphocytes # (Manual) Monocytes # (Manual) Eosinophils # (Manual) PT INR APTT D-Dimer Heparin Anti-Xa Level ABG pH POC ABG pCO2 49.0 H POC ABG pO2 69.6 L ABG pO2 ABG HCO3 ABG Hemoglobin 8.5 L ABG Oxyhemoglobin 90.5 L ABG Sodium 133.6 L ABG Potassium 5.1 H ABG Chloride ABG Glucose 104 H Carboxyhemoglobin Sodium 133 L Potassium 5.7 H Chloride 96.3 L Carbon Dioxide 20 L D BUN 102 H Creatinine 4.4 H Glucose 101 H POC Glucose 120 H Lactic Acid Calcium 7.9 L Phosphorus Magnesium Ferritin Direct Bilirubin AST 61 H ALT 85 H Alkaline Phosphatase 144 H Lactate Dehydrogenase Total Creatine Kinase C-Reactive Protein Total Protein 5.4 L Albumin 2.0 L Triglycerides Arterial Blood Glucose 104 H Arterial Blood Ionized Calcium 4.3 L Urine Creatinine Urine Chloride Vancomycin Trough Coronavirus (PCR) Crossmatch 07/13/20 07/13/20 07/13/20 08:48 12:14 15:12 WBC 27.5 H RBC 3.03 L Hgb 8.7 L Hct 27.0 L MCHC RDW 18.0 H Plt Count Lymph % (Auto) Weber % (Auto) Lymph # (Auto) Weber # (Auto) Eos # (Auto) Seg Neutrophils % Seg Neuts % (Manual) Lymphocytes % (Manual) Monocytes % (Manual) Nucleated RBC % Seg Neutrophils # Seg Neutrophils # Man Lymphocytes # (Manual) Monocytes # (Manual) Eosinophils # (Manual) PT INR APTT D-Dimer Heparin Anti-Xa Level ABG pH POC ABG pCO2 POC ABG pO2 ABG pO2 ABG HCO3 ABG Hemoglobin ABG Oxyhemoglobin ABG Sodium ABG Potassium ABG Chloride ABG Glucose Carboxyhemoglobin Sodium Potassium 5.5 H Chloride Carbon Dioxide BUN 88 H Creatinine 3.8 H Glucose 133 H POC Glucose 134 H Lactic Acid Calcium 7.5 L Phosphorus Magnesium Ferritin Direct Bilirubin AST ALT Alkaline Phosphatase Lactate Dehydrogenase Total Creatine Kinase C-Reactive Protein Total Protein Albumin Triglycerides Arterial Blood Glucose Arterial Blood Ionized Calcium Urine Creatinine Urine Chloride Vancomycin Trough Coronavirus (PCR) Crossmatch 07/13/20 07/13/20 07/13/20 16:46 16:47 18:46 WBC RBC Hgb 7.4 L Hct 22.1 L MCHC RDW Plt Count Lymph % (Auto) Weber % (Auto) Lymph # (Auto) Weber # (Auto) Eos # (Auto) Seg Neutrophils % Seg Neuts % (Manual) Lymphocytes % (Manual) Monocytes % (Manual) Nucleated RBC % Seg Neutrophils # Seg Neutrophils # Man Lymphocytes # (Manual) Monocytes # (Manual) Eosinophils # (Manual) PT INR APTT D-Dimer Heparin Anti-Xa Level ABG pH POC ABG pCO2 POC ABG pO2 ABG pO2 ABG HCO3 ABG Hemoglobin ABG Oxyhemoglobin ABG Sodium ABG Potassium ABG Chloride ABG Glucose Carboxyhemoglobin Sodium Potassium Chloride Carbon Dioxide BUN Creatinine Glucose POC Glucose 118 H Lactic Acid Calcium Phosphorus Magnesium Ferritin Direct Bilirubin AST ALT Alkaline Phosphatase Lactate Dehydrogenase Total Creatine Kinase C-Reactive Protein Total Protein Albumin Triglycerides Arterial Blood Glucose Arterial Blood Ionized Calcium Urine Creatinine Urine Chloride Vancomycin Trough Coronavirus (PCR) Crossmatch See Detail 07/13/20 07/14/20 07/14/20 23:34 04:25 12:21 WBC RBC Hgb Hct MCHC RDW Plt Count Lymph % (Auto) Weber % (Auto) Lymph # (Auto) Weber # (Auto) Eos # (Auto) Seg Neutrophils % Seg Neuts % (Manual) Lymphocytes % (Manual) Monocytes % (Manual) Nucleated RBC % Seg Neutrophils # Seg Neutrophils # Man Lymphocytes # (Manual) Monocytes # (Manual) Eosinophils # (Manual) PT INR APTT D-Dimer Heparin Anti-Xa Level ABG pH POC ABG pCO2 POC ABG pO2 ABG pO2 ABG HCO3 ABG Hemoglobin 8.9 L ABG Oxyhemoglobin ABG Sodium 133.1 L ABG Potassium 4.7 H ABG Chloride ABG Glucose 113 H Carboxyhemoglobin Sodium Potassium Chloride Carbon Dioxide BUN Creatinine Glucose POC Glucose 109 H 109 H Lactic Acid Calcium Phosphorus Magnesium Ferritin Direct Bilirubin AST ALT Alkaline Phosphatase Lactate Dehydrogenase Total Creatine Kinase C-Reactive Protein Total Protein Albumin Triglycerides Arterial Blood Glucose 113 H Arterial Blood Ionized Calcium 4.4 L Urine Creatinine Urine Chloride Vancomycin Trough Coronavirus (PCR) Crossmatch 07/14/20 07/14/20 07/14/20 16:44 16:44 20:20 WBC 30.1 H RBC 2.60 L Hgb 7.4 L 5.6 L* Hct 23.0 L 18.1 L* MCHC RDW 18.0 H Plt Count Lymph % (Auto) Weber % (Auto) Lymph # (Auto) Weber # (Auto) Eos # (Auto) Seg Neutrophils % Seg Neuts % (Manual) 78.0 H Lymphocytes % (Manual) 5.0 L Monocytes % (Manual) Nucleated RBC % Seg Neutrophils # Seg Neutrophils # Man 23.5 H Lymphocytes # (Manual) Monocytes # (Manual) 0.9 H Eosinophils # (Manual) PT 15.6 H INR 1.26 H APTT D-Dimer Heparin Anti-Xa Level ABG pH POC ABG pCO2 POC ABG pO2 ABG pO2 ABG HCO3 ABG Hemoglobin ABG Oxyhemoglobin ABG Sodium ABG Potassium ABG Chloride ABG Glucose Carboxyhemoglobin Sodium Potassium Chloride Carbon Dioxide BUN Creatinine Glucose POC Glucose Lactic Acid Calcium Phosphorus Magnesium Ferritin Direct Bilirubin AST ALT Alkaline Phosphatase Lactate Dehydrogenase Total Creatine Kinase C-Reactive Protein Total Protein Albumin Triglycerides Arterial Blood Glucose Arterial Blood Ionized Calcium Urine Creatinine Urine Chloride Vancomycin Trough Coronavirus (PCR) Crossmatch 07/14/20 07/14/20 07/15/20 21:19 23:45 04:13 WBC RBC Hgb Hct MCHC RDW Plt Count Lymph % (Auto) Weber % (Auto) Lymph # (Auto) Weber # (Auto) Eos # (Auto) Seg Neutrophils % Seg Neuts % (Manual) Lymphocytes % (Manual) Monocytes % (Manual) Nucleated RBC % Seg Neutrophils # Seg Neutrophils # Man Lymphocytes # (Manual) Monocytes # (Manual) Eosinophils # (Manual) PT INR APTT D-Dimer Heparin Anti-Xa Level ABG pH POC ABG pCO2 POC ABG pO2 ABG pO2 ABG HCO3 ABG Hemoglobin 5.8 L 6.0 L ABG Oxyhemoglobin 93.8 L ABG Sodium 132.2 L 130.3 L ABG Potassium 5.5 H 5.8 H ABG Chloride ABG Glucose 118 H 122 H Carboxyhemoglobin Sodium Potassium Chloride Carbon Dioxide BUN Creatinine Glucose POC Glucose 126 H Lactic Acid Calcium Phosphorus Magnesium Ferritin Direct Bilirubin AST ALT Alkaline Phosphatase Lactate Dehydrogenase Total Creatine Kinase C-Reactive Protein Total Protein Albumin Triglycerides Arterial Blood Glucose 118 H 122 H Arterial Blood Ionized Calcium 4.3 L 4.2 L Urine Creatinine Urine Chloride Vancomycin Trough Coronavirus (PCR) Crossmatch 07/15/20 07/15/20 07/15/20 08:21 08:21 08:38 WBC 45.5 H* RBC 2.42 L Hgb 7.1 L Hct 21.5 L MCHC RDW 16.5 H Plt Count Lymph % (Auto) Weber % (Auto) Lymph # (Auto) Weber # (Auto) Eos # (Auto) Seg Neutrophils % Seg Neuts % (Manual) 89.0 H Lymphocytes % (Manual) 7.0 L Monocytes % (Manual) Nucleated RBC % Seg Neutrophils # Seg Neutrophils # Man 40.5 H Lymphocytes # (Manual) Monocytes # (Manual) 1.8 H Eosinophils # (Manual) PT 17.6 H INR 1.46 H APTT D-Dimer Heparin Anti-Xa Level ABG pH POC ABG pCO2 POC ABG pO2 ABG pO2 ABG HCO3 ABG Hemoglobin ABG Oxyhemoglobin ABG Sodium ABG Potassium ABG Chloride ABG Glucose Carboxyhemoglobin Sodium 131 L Potassium 6.0 H Chloride 94.6 L Carbon Dioxide 20 L BUN 116 H Creatinine 4.6 H Glucose 123 H POC Glucose Lactic Acid Calcium 7.6 L Phosphorus Magnesium Ferritin Direct Bilirubin AST ALT Alkaline Phosphatase Lactate Dehydrogenase Total Creatine Kinase C-Reactive Protein Total Protein Albumin Triglycerides Arterial Blood Glucose Arterial Blood Ionized Calcium Urine Creatinine Urine Chloride Vancomycin Trough Coronavirus (PCR) Crossmatch 07/15/20 07/15/20 07/15/20 11:29 17:23 18:52 WBC RBC Hgb Hct MCHC RDW Plt Count Lymph % (Auto) Weber % (Auto) Lymph # (Auto) Weber # (Auto) Eos # (Auto) Seg Neutrophils % Seg Neuts % (Manual) Lymphocytes % (Manual) Monocytes % (Manual) Nucleated RBC % Seg Neutrophils # Seg Neutrophils # Man Lymphocytes # (Manual) Monocytes # (Manual) Eosinophils # (Manual) PT INR APTT D-Dimer Heparin Anti-Xa Level ABG pH POC ABG pCO2 POC ABG pO2 ABG pO2 ABG HCO3 ABG Hemoglobin ABG Oxyhemoglobin ABG Sodium ABG Potassium ABG Chloride ABG Glucose Carboxyhemoglobin Sodium Potassium Chloride 97.9 L Carbon Dioxide BUN 78 H Creatinine 3.1 H Glucose 114 H POC Glucose 181 H 120 H Lactic Acid Calcium 7.3 L Phosphorus Magnesium Ferritin Direct Bilirubin AST ALT Alkaline Phosphatase Lactate Dehydrogenase Total Creatine Kinase C-Reactive Protein Total Protein Albumin Triglycerides Arterial Blood Glucose Arterial Blood Ionized Calcium Urine Creatinine Urine Chloride Vancomycin Trough Coronavirus (PCR) Crossmatch 07/15/20 07/16/20 07/16/20 18:52 01:10 03:38 WBC RBC Hgb 9.9 L 8.5 L Hct 29.8 L D 24.7 L MCHC RDW Plt Count Lymph % (Auto) Weber % (Auto) Lymph # (Auto) Weber # (Auto) Eos # (Auto) Seg Neutrophils % Seg Neuts % (Manual) Lymphocytes % (Manual) Monocytes % (Manual) Nucleated RBC % Seg Neutrophils # Seg Neutrophils # Man Lymphocytes # (Manual) Monocytes # (Manual) Eosinophils # (Manual) PT INR APTT D-Dimer Heparin Anti-Xa Level ABG pH 7.314 L POC ABG pCO2 48.5 H POC ABG pO2 58.9 L ABG pO2 ABG HCO3 ABG Hemoglobin 8.7 L ABG Oxyhemoglobin 86.7 L ABG Sodium 132.7 L ABG Potassium 5.2 H ABG Chloride ABG Glucose 99 H Carboxyhemoglobin Sodium Potassium Chloride Carbon Dioxide BUN Creatinine Glucose POC Glucose Lactic Acid Calcium Phosphorus Magnesium Ferritin Direct Bilirubin AST ALT Alkaline Phosphatase Lactate Dehydrogenase Total Creatine Kinase C-Reactive Protein Total Protein Albumin Triglycerides Arterial Blood Glucose 99 H Arterial Blood Ionized Calcium 3.9 L Urine Creatinine Urine Chloride Vancomycin Trough Coronavirus (PCR) Crossmatch 07/16/20 07/16/20 07/16/20 04:28 04:28 07:29 WBC 48.9 H* RBC 2.86 L Hgb 8.6 L 7.9 L Hct 25.4 L 24.4 L MCHC RDW 15.6 H Plt Count Lymph % (Auto) Weber % (Auto) Lymph # (Auto) Weber # (Auto) Eos # (Auto) Seg Neutrophils % Seg Neuts % (Manual) Lymphocytes % (Manual) Monocytes % (Manual) Nucleated RBC % Seg Neutrophils # Seg Neutrophils # Man Lymphocytes # (Manual) Monocytes # (Manual) Eosinophils # (Manual) PT INR APTT D-Dimer Heparin Anti-Xa Level ABG pH POC ABG pCO2 POC ABG pO2 ABG pO2 ABG HCO3 ABG Hemoglobin ABG Oxyhemoglobin ABG Sodium ABG Potassium ABG Chloride ABG Glucose Carboxyhemoglobin Sodium 136 L Potassium 5.4 H Chloride 95.0 L Carbon Dioxide BUN 85 H Creatinine 3.4 H Glucose 66 L POC Glucose Lactic Acid Calcium 6.8 L Phosphorus Magnesium Ferritin Direct Bilirubin AST ALT Alkaline Phosphatase Lactate Dehydrogenase Total Creatine Kinase C-Reactive Protein Total Protein Albumin Triglycerides Arterial Blood Glucose Arterial Blood Ionized Calcium Urine Creatinine Urine Chloride Vancomycin Trough Coronavirus (PCR) Crossmatch 07/16/20 07/16/20 07/16/20 11:52 18:06 18:08 WBC RBC Hgb 7.4 L Hct 22.5 L MCHC RDW Plt Count Lymph % (Auto) Weber % (Auto) Lymph # (Auto) Weber # (Auto) Eos # (Auto) Seg Neutrophils % Seg Neuts % (Manual) Lymphocytes % (Manual) Monocytes % (Manual) Nucleated RBC % Seg Neutrophils # Seg Neutrophils # Man Lymphocytes # (Manual) Monocytes # (Manual) Eosinophils # (Manual) PT INR APTT D-Dimer Heparin Anti-Xa Level ABG pH POC ABG pCO2 POC ABG pO2 ABG pO2 ABG HCO3 ABG Hemoglobin ABG Oxyhemoglobin ABG Sodium ABG Potassium ABG Chloride ABG Glucose Carboxyhemoglobin Sodium Potassium Chloride Carbon Dioxide BUN Creatinine Glucose POC Glucose 124 H 108 H Lactic Acid Calcium Phosphorus Magnesium Ferritin Direct Bilirubin AST ALT Alkaline Phosphatase Lactate Dehydrogenase Total Creatine Kinase C-Reactive Protein Total Protein Albumin Triglycerides Arterial Blood Glucose Arterial Blood Ionized Calcium Urine Creatinine Urine Chloride Vancomycin Trough Coronavirus (PCR) Crossmatch 07/17/20 07/17/20 07/17/20 03:27 15:25 15:25 WBC 46.2 H* RBC 2.05 L Hgb 6.1 L Hct 18.4 L* MCHC RDW 15.6 H Plt Count Lymph % (Auto) Weber % (Auto) Lymph # (Auto) Weber # (Auto) Eos # (Auto) Seg Neutrophils % Seg Neuts % (Manual) 87.0 H Lymphocytes % (Manual) 3.0 L Monocytes % (Manual) Nucleated RBC % Seg Neutrophils # Seg Neutrophils # Man 40.2 H Lymphocytes # (Manual) Monocytes # (Manual) 3.2 H Eosinophils # (Manual) PT 18.2 H INR 1.52 H APTT D-Dimer Heparin Anti-Xa Level ABG pH 7.313 L POC ABG pCO2 50.9 H POC ABG pO2 ABG pO2 ABG HCO3 ABG Hemoglobin 7.5 L ABG Oxyhemoglobin ABG Sodium 131.8 L ABG Potassium 4.6 H ABG Chloride ABG Glucose 105 H Carboxyhemoglobin Sodium Potassium Chloride Carbon Dioxide BUN Creatinine Glucose POC Glucose Lactic Acid Calcium Phosphorus Magnesium Ferritin Direct Bilirubin AST ALT Alkaline Phosphatase Lactate Dehydrogenase Total Creatine Kinase C-Reactive Protein Total Protein Albumin Triglycerides Arterial Blood Glucose 105 H Arterial Blood Ionized Calcium 3.9 L Urine Creatinine Urine Chloride Vancomycin Trough Coronavirus (PCR) Crossmatch 07/17/20 07/18/20 07/18/20 Unknown 03:10 05:06 WBC 37.9 H RBC 2.91 L Hgb 8.5 L Hct 25.6 L D MCHC RDW Plt Count Lymph % (Auto) Weber % (Auto) Lymph # (Auto) Weber # (Auto) Eos # (Auto) Seg Neutrophils % Seg Neuts % (Manual) Lymphocytes % (Manual) Monocytes % (Manual) Nucleated RBC % Seg Neutrophils # Seg Neutrophils # Man Lymphocytes # (Manual) Monocytes # (Manual) Eosinophils # (Manual) PT INR APTT D-Dimer Heparin Anti-Xa Level ABG pH POC ABG pCO2 POC ABG pO2 114.9 H ABG pO2 ABG HCO3 ABG Hemoglobin 8.6 L ABG Oxyhemoglobin ABG Sodium 130.6 L ABG Potassium 4.9 H ABG Chloride ABG Glucose Carboxyhemoglobin Sodium Potassium Chloride Carbon Dioxide BUN Creatinine Glucose POC Glucose Lactic Acid Calcium Phosphorus Magnesium Ferritin Direct Bilirubin AST ALT Alkaline Phosphatase Lactate Dehydrogenase Total Creatine Kinase C-Reactive Protein Total Protein Albumin Triglycerides Arterial Blood Glucose Arterial Blood Ionized Calcium 3.8 L Urine Creatinine Urine Chloride Vancomycin Trough Coronavirus (PCR) Crossmatch See Detail 07/18/20 07/19/20 07/19/20 05:06 00:06 03:57 WBC RBC Hgb Hct MCHC RDW Plt Count Lymph % (Auto) Weber % (Auto) Lymph # (Auto) Weber # (Auto) Eos # (Auto) Seg Neutrophils % Seg Neuts % (Manual) Lymphocytes % (Manual) Monocytes % (Manual) Nucleated RBC % Seg Neutrophils # Seg Neutrophils # Man Lymphocytes # (Manual) Monocytes # (Manual) Eosinophils # (Manual) PT INR APTT D-Dimer Heparin Anti-Xa Level ABG pH POC ABG pCO2 POC ABG pO2 ABG pO2 ABG HCO3 ABG Hemoglobin 8.6 L ABG Oxyhemoglobin ABG Sodium 130.4 L ABG Potassium ABG Chloride ABG Glucose Carboxyhemoglobin Sodium Potassium 5.4 H Chloride Carbon Dioxide BUN 79 H Creatinine 3.2 H Glucose POC Glucose 69 L Lactic Acid Calcium 6.9 L Phosphorus Magnesium Ferritin Direct Bilirubin AST ALT 58 H Alkaline Phosphatase Lactate Dehydrogenase Total Creatine Kinase C-Reactive Protein Total Protein 4.3 L D Albumin 1.7 L Triglycerides 306 H Arterial Blood Glucose Arterial Blood Ionized Calcium 3.9 L Urine Creatinine Urine Chloride Vancomycin Trough Coronavirus (PCR) Crossmatch 07/19/20 07/19/20 07/19/20 05:22 09:15 09:15 WBC 32.5 H RBC 2.57 L Hgb 7.8 L Hct 22.8 L MCHC RDW 15.3 H Plt Count Lymph % (Auto) Weber % (Auto) Lymph # (Auto) Weber # (Auto) Eos # (Auto) Seg Neutrophils % Seg Neuts % (Manual) Lymphocytes % (Manual) Monocytes % (Manual) Nucleated RBC % Seg Neutrophils # Seg Neutrophils # Man Lymphocytes # (Manual) Monocytes # (Manual) Eosinophils # (Manual) PT INR APTT D-Dimer Heparin Anti-Xa Level ABG pH POC ABG pCO2 POC ABG pO2 ABG pO2 ABG HCO3 ABG Hemoglobin ABG Oxyhemoglobin ABG Sodium ABG Potassium ABG Chloride ABG Glucose Carboxyhemoglobin Sodium 135 L Potassium Chloride 96.3 L Carbon Dioxide BUN 61 H Creatinine 2.8 H Glucose POC Glucose 64 L Lactic Acid Calcium 6.8 L Phosphorus Magnesium Ferritin Direct Bilirubin AST 54 H ALT 65 H Alkaline Phosphatase Lactate Dehydrogenase Total Creatine Kinase C-Reactive Protein Total Protein 4.3 L Albumin 1.8 L Triglycerides Arterial Blood Glucose Arterial Blood Ionized Calcium Urine Creatinine Urine Chloride Vancomycin Trough Coronavirus (PCR) Crossmatch 07/20/20 07/20/20 07/20/20 05:20 06:00 06:07 WBC 28.1 H RBC 2.53 L Hgb 7.7 L Hct 22.7 L MCHC RDW 15.5 H Plt Count Lymph % (Auto) Weber % (Auto) Lymph # (Auto) Weber # (Auto) Eos # (Auto) Seg Neutrophils % Seg Neuts % (Manual) Lymphocytes % (Manual) Monocytes % (Manual) Nucleated RBC % Seg Neutrophils # Seg Neutrophils # Man Lymphocytes # (Manual) Monocytes # (Manual) Eosinophils # (Manual) PT INR APTT D-Dimer Heparin Anti-Xa Level ABG pH POC ABG pCO2 POC ABG pO2 ABG pO2 ABG HCO3 ABG Hemoglobin 6.3 L ABG Oxyhemoglobin ABG Sodium 130.0 L ABG Potassium ABG Chloride ABG Glucose 114 H Carboxyhemoglobin Sodium Potassium Chloride Carbon Dioxide BUN Creatinine Glucose POC Glucose 110 H Lactic Acid Calcium Phosphorus Magnesium Ferritin Direct Bilirubin AST ALT Alkaline Phosphatase Lactate Dehydrogenase Total Creatine Kinase C-Reactive Protein Total Protein Albumin Triglycerides Arterial Blood Glucose 114 H Arterial Blood Ionized Calcium 3.9 L Urine Creatinine Urine Chloride Vancomycin Trough Coronavirus (PCR) Crossmatch 07/20/20 07/21/20 07/21/20 17:19 05:02 05:40 WBC 32.9 H RBC 2.78 L Hgb 8.5 L Hct 25.2 L MCHC RDW 15.7 H Plt Count 74 L Lymph % (Auto) Weber % (Auto) Lymph # (Auto) Weber # (Auto) Eos # (Auto) Seg Neutrophils % Seg Neuts % (Manual) Lymphocytes % (Manual) Monocytes % (Manual) Nucleated RBC % Seg Neutrophils # Seg Neutrophils # Man Lymphocytes # (Manual) Monocytes # (Manual) Eosinophils # (Manual) PT INR APTT D-Dimer Heparin Anti-Xa Level ABG pH POC ABG pCO2 POC ABG pO2 73.2 L ABG pO2 ABG HCO3 ABG Hemoglobin 9.1 L ABG Oxyhemoglobin 93.4 L ABG Sodium ABG Potassium 3.1 L ABG Chloride ABG Glucose 112 H Carboxyhemoglobin Sodium Potassium Chloride Carbon Dioxide BUN Creatinine Glucose POC Glucose 137 H Lactic Acid Calcium Phosphorus Magnesium Ferritin Direct Bilirubin AST ALT Alkaline Phosphatase Lactate Dehydrogenase Total Creatine Kinase C-Reactive Protein Total Protein Albumin Triglycerides Arterial Blood Glucose 112 H Arterial Blood Ionized Calcium Urine Creatinine Urine Chloride Vancomycin Trough Coronavirus (PCR) Crossmatch 07/22/20 04:11 WBC RBC Hgb Hct MCHC RDW Plt Count Lymph % (Auto) Weber % (Auto) Lymph # (Auto) Weber # (Auto) Eos # (Auto) Seg Neutrophils % Seg Neuts % (Manual) Lymphocytes % (Manual) Monocytes % (Manual) Nucleated RBC % Seg Neutrophils # Seg Neutrophils # Man Lymphocytes # (Manual) Monocytes # (Manual) Eosinophils # (Manual) PT INR APTT D-Dimer Heparin Anti-Xa Level ABG pH POC ABG pCO2 POC ABG pO2 67.7 L ABG pO2 ABG HCO3 ABG Hemoglobin 7.4 L ABG Oxyhemoglobin 91.7 L ABG Sodium ABG Potassium 2.9 L ABG Chloride ABG Glucose 105 H Carboxyhemoglobin Sodium Potassium Chloride Carbon Dioxide BUN Creatinine Glucose POC Glucose Lactic Acid Calcium Phosphorus Magnesium Ferritin Direct Bilirubin AST ALT Alkaline Phosphatase Lactate Dehydrogenase Total Creatine Kinase C-Reactive Protein Total Protein Albumin Triglycerides Arterial Blood Glucose 105 H Arterial Blood Ionized Calcium Urine Creatinine Urine Chloride Vancomycin Trough Coronavirus (PCR) Crossmatch Allied health notes reviewed: nursing
--- NOTE | 2020-07-22 13:40 | Progress Note ---
Assessment and Plan - Patient Problems (1) Acute renal failure Current Visit: Yes Status: Acute Qualifiers: Acute renal failure type: with acute tubular necrosis Qualified Code(s): N17.0 - Acute kidney failure with tubular necrosis Plan to address problem: Likely prerenal in nature secondary to new onset of COVID-19 pneumonia with worsening sepsis and hypotension. Concern for acute tubular necrosis. Has now been on HD and this am is off pressor support. Will continue to monitor. Overall prognosis remains poor at this time. He is on a inpatient MWF HD schedule and we will assess daily needs for isolated UF treatment in order to optimize volume status. (2) Pneumonia due to COVID-19 virus Current Visit: Yes Status: Acute Plan to address problem: Management per infectious disease recommendations. (3) Acute respiratory failure with hypoxia Current Visit: Yes Status: Acute Plan to address problem: Patient currently intubated at this time. Vent management per pulmonology recommendations. (4) Anemia Current Visit: Yes Status: Acute Qualifiers: Other causes of anemia: acute posthemorrhagic Plan to address problem: Per GI notes, EGD did not show evidence of active bleeding. Follow up further GI recommendations. Transfuse to maintain Hgb >7.0. (5) Hyperkalemia Current Visit: Yes Status: Acute Plan to address problem: Manage with HD. Subjective Date of service: 07/22/20 Principal diagnosis: ARF; Septic Shock; COVID-19 PNA; Atrial fibrillation; Obesity Interval history: Noted to have 900 cc UOP after straight cath this am. Pending HD today. Remains off pressors, intubated. no acute changes overnight reported. Objective - Exam Narrative Exam: Not directly examined in order to preserve PPE. - Vital Signs Vital signs: Vital Signs - 12hr 07/22/20 07/22/20 07/22/20 01:46 02:00 02:16 Temperature Pulse Rate 70 71 74 Pulse Rate [ From Monitor] Respiratory 18 30 H 11 L Rate Blood Pressure 143/58 148/64 145/54 O2 Sat by Pulse 95 91 93 Oximetry 07/22/20 07/22/20 07/22/20 02:30 02:46 03:00 Temperature Pulse Rate 70 68 70 Pulse Rate [ From Monitor] Respiratory 17 27 H 19 Rate Blood Pressure 133/51 115/44 108/42 O2 Sat by Pulse 94 97 97 Oximetry 07/22/20 07/22/2007/22/21 03:16 03:30 03:46 Temperature Pulse Rate 68 66 64 Pulse Rate [ From Monitor] Respiratory 17 16 15 Rate Blood Pressure 109/46 103/37 97/39 O2 Sat by Pulse 96 98 Oximetry 07/22/20 07/22/20 07/22/20 04:00 04:16 04:30 Temperature 98.7 F Pulse Rate 64 81 70 Pulse Rate [ 64 From Monitor] Respiratory 14 10 L 10 L Rate Blood Pressure 95/36 109/93 182/64 O2 Sat by Pulse 99 97 96 Oximetry 07/22/20 07/22/20 07/22/20 04:32 04:46 05:00 Temperature Pulse Rate 70 69 67 Pulse Rate [ From Monitor] Respiratory 14 25 H Rate Blood Pressure 130/57 142/61 141/58 O2 Sat by Pulse 95 96 Oximetry 07/22/20 07/22/20 07/22/20 05:16 05:30 05:46 Temperature Pulse Rate 68 70 67 Pulse Rate [ From Monitor] Respiratory 16 16 17 Rate Blood Pressure 142/55 135/57 132/53 O2 Sat by Pulse 95 96 Oximetry 07/22/20 07/22/20 07/22/20 06:00 06:16 06:30 Temperature Pulse Rate 71 66 65 Pulse Rate [ From Monitor] Respiratory 10 L 23 25 H Rate Blood Pressure 134/58 118/54 110/49 O2 Sat by Pulse 96 98 Oximetry 07/22/20 07/22/20 07/22/20 06:46 07:00 07:16 Temperature Pulse Rate 62 62 62 Pulse Rate [ From Monitor] Respiratory 25 H 25 H 25 H Rate Blood Pressure 104/48 102/51 94/45 O2 Sat by Pulse 99 99 99 Oximetry 07/22/20 07/22/20 07/22/20 07:30 07:46 08:00 Temperature 97.1 F L Pulse Rate 63 60 70 Pulse Rate [ From Monitor] Respiratory 25 H 27 H 22 Rate Blood Pressure 92/44 97/48 102/48 O2 Sat by Pulse 99 100 100 Oximetry 07/22/20 07/22/20 07/22/20 08:01 08:16 08:30 Temperature Pulse Rate 65 65 68 Pulse Rate [ From Monitor] Respiratory 18 29 H Rate Blood Pressure 119/75 114/54 138/66 O2 Sat by Pulse 100 99 99 Oximetry 07/22/20 07/22/20 07/22/20 08:46 09:00 09:16 Temperature Pulse Rate 68 66 71 Pulse Rate [ From Monitor] Respiratory 18 18 27 H Rate Blood Pressure 136/58 112/50 132/66 O2 Sat by Pulse 99 98 98 Oximetry 07/22/20 07/22/20 07/22/20 09:30 09:46 12:00 Temperature 97.1 F L Pulse Rate 71 70 Pulse Rate [ From Monitor] Respiratory 23 19 Rate Blood Pressure 122/54 123/53 O2 Sat by Pulse 98 98 Oximetry 07/22/20 13:11 Temperature Pulse Rate 99 H Pulse Rate [ From Monitor] Respiratory Rate Blood Pressure 92/47 O2 Sat by Pulse 100 Oximetry - Lab 07/21/20 05:02 07/19/20 09:15 Most recent lab results ABG pH 7.399 (7.320-7.450) 07/22/20 04:11 ABG pCO2 56.4 mm Hg 07/05/20 04:30 ABG pO2 151.9 mm Hg (80.0-90.0) H 07/05/20 04:30 ABG HCO3 26.8 mmol/L (20.0-26.0) H 07/05/20 04:30 ABG O2 Saturation 93.2 (0-100) 07/22/20 04:11 Calcium 6.8 mg/dL (8.4-10.2) L 07/19/20 09:15 Phosphorus 9.40 mg/dL (2.5-4.5) H 06/30/20 03:50 Magnesium 2.70 mg/dL (1.7-2.3) H 06/18/20 20:33 Urine Creatinine 192.4 mg/dL (0.1-20.0) H 06/18/20 15:00 Urine Sodium 28 mmol/L 06/18/20 15:00 Medications & Allergies - Medications Allergies/Adverse Reactions: Allergies No Known Allergies Allergy (Unverified 06/17/20 14:24) Home Medications: Home Medications Medication Instructions Recorded Confirmed Last Taken Type Losartan/Hydrochlorothiazide 1 each PO QDAY 06/19/20 06/19/20 Unknown History [Losartan-Hctz 100-25 mg Tab] amLODIPine [Norvasc] 5 mg PO DAILY 06/19/20 06/19/20 Unknown History Active Medications: Generic Name Dose Route Start Last Admin Trade Name Freq PRN Reason Stop Dose Admin Acetaminophen 650 mg 06/17/20 14:17 07/03/20 09:16 Acetaminophen 325 Mg Tab PO 650 mg Q4H PRN Administration Pain MILD(1-3)/Fever >100.5/ROBERTS Albuterol 2.5 mg 07/19/20 12:15 Albuterol 2.5 Mg/3 Ml Nebu IH Q6HRT PRN Shortness Of Breath Amiodarone HCl 200 mg 07/19/20 14:00 07/22/20 09:13 Amiodarone 200 Mg Tab PO 200 mg BID CONNOR Administration Lipase/Protease/Amylase 1 each 06/19/20 12:15 Lipase 10,500/Protease 25,000/Amylase 43,750 (Units) Dr Kulkarni FEEDTUBE PRN PRN For Clogged Feeding Tube Ascorbic Acid 250 mg 06/17/20 22:00 07/22/20 09:13 Ascorbic Acid 250 Mg Tab PO 250 mg BID CONNOR Administration Cholecalciferol 1,000 unit 06/18/20 10:00 07/22/20 09:13 Cholecalciferol (Vit D3) 1000 Unit (25 Mcg) Tab PO 1,000 unit DAILY CONNOR Administration Docusate Sodium 100 mg 06/23/20 15:00 07/22/20 09:13 Docusate Sodium 100 Mg/10 Ml Oral Liqd FEEDTUBE 100 mg BID CONNOR Administration Fentanyl 50 mcg 06/18/20 01:02 07/09/20 00:20 Fentanyl 100 Mcg/2 Ml Inj IV 50 mcg Q10MIN PRN Administration ANALGESIA Heparin Sodium (Porcine) 5,000 unit 06/22/20 12:53 06/30/20 13:36 Heparin 10,000 Unit/1 Ml Vial IV 5,000 unit PAM PRN Administration hemodialysis Hydrophilic Ointment 1 applic 06/17/20 22:52 07/12/20 20:22 Lip Therapy Vaseline TP 1 applic Q2HR PRN Administration Dry Lips Propofol 1,000 mg in 100 mls @ 3.402 mls/hr 06/18/20 01:00 07/22/20 10:24 Diprivan 10 Mg/Ml IV 10 mcg/kg/min TITR CONNOR 6.804 mls/hr Administration Protocol 5 MCG/KG/MIN Fentanyl Citrate 2,000 mcg in 100 mls @ 8 mls/hr 06/18/20 02:00 07/22/20 08:25 Fentanyl Drip Premix IV 2 mcg/kg/hr TITR CONNOR 16 mls/hr Administration Protocol 1 MCG/KG/HR Norepinephrine 4 mg in 250 mls @ 7.5 mls/hr 07/08/20 02:06 07/21/20 06:49 Levophed Drip 4 Mg/Ns 250 Ml IV 0 mcg/min TITR CONNOR 0 mls/hr Titration Protocol 2 MCG/MIN Vasopressin 20 unit/ Sodium 101 mls @ 9.09 mls/hr 07/11/20 11:00 07/18/20 15 :36 Chloride IV 0 units/min TITR CONNOR 0 mls/hr Titration Protocol 0.03 UNITS/MIN Sodium Chloride 100 mls @ 999 mls/hr 07/19/20 08:22 Nacl 0.9% IV PAM PRN Hypotension Ampicillin Sodium 2 gm in 100 mls @ 100 mls/hr 07/21/20 12:00 07/22/20 00:57 Ampicillin/Ns 2 Gm/100 Ml IV 08/02/20 12:59 100 mls/hr Q12H CONNOR Administration Protocol Insulin Human Regular 0 units 06/18/20 12:00 07/22/20 13:20 Insulin Regular, Human 100 Units/1 Ml SUB-Q Not Given Q6HR [facility] Protocol Multi-Ingred Cream/Lotion/Oil/Oint 1 applic 06/17/20 22:52 07/12/20 20:22 Mineral Oil/Petrolatum, White Ophth Oint 3.5 Gm OU 1 applic Q4HR PRN Administration Dry Eye(s) Ondansetron HCl 4 mg 06/17/20 14:17 Ondansetron 4 Mg/2 Ml Inj IV Q8H PRN Nausea And Vomiting Pantoprazole Sodium 40 mg 07/16/20 22:00 07/22/20 09:13 Pantoprazole 40 Mg Inj IV 40 mg BID CONNOR Administration Polyethylene Glycol 17 gm 06/23/20 15:00 07/22/20 09:12 Polyethylene Glycol 3350 17 Gm Powder PO 17 gm QDAY CONNOR Administration Quetiapine Fumarate 200 mg 06/28/20 13:00 07/22/20 09:13 Quetiapine 200 Mg Tab PO 200 mg BID CONNOR Administration Simple Syrup 15 ml 06/19/20 12:15 07/19/20 00:48 Simple Syrup 15 Ml FEEDTUBE 15 ml PRN PRN Administration Hypoglycemia Simple Syrup 30 ml 06/19/20 12:15 07/19/20 06:04 Simple Syrup 15 Ml FEEDTUBE 30 ml PRN PRN Administration Hypoglycemia Sodium Bicarbonate 325 mg 06/19/20 12:15 07/11/20 20:00 Sodium Bicarbonate 325 Mg Tab FEEDTUBE 325 mg PRN PRN Administration For Clogged Feeding Tube Sodium Bicarbonate 650 mg 07/04/20 10:00 07/22/20 09:13 Sodium Bicarbonate 650 Mg Tab PO 650 mg TID CONNOR Administration Sodium Chloride 10 ml 06/17/20 22:00 07/22/20 09:42 Sodium Chloride 0.9% 10 Ml Flush Syringe IV 10 ml BID CONNOR Administration Sodium Chloride 10 ml 06/17/20 14:17 Sodium Chloride 0.9% 10 Ml Flush Syringe IV PRN PRN LINE FLUSH Sodium Hypochlorite 1 applic 07/20/20 10:00 07/22/20 09:14 Sodium Hypochlorite, Dakin's 1/2 Strength (0.25%) 473 Ml Topical Soln TP 1 applicatio BID CONNOR Administration Sodium Polystyrene Sulfonate 15 gm 07/03/20 11:19 07/05/20 10:36 Sodium Polystyrene 15 Gm/60 Ml Oral Liqd PO 15 gm Q6HR PRN Administration Hyperkalemia Zinc Sulfate 220 mg 06/17/20 22:00 07/22/20 09:13 Zinc Sulfate 220 Mg Cap PO 220 mg BID CONNOR Administration
--- NOTE | 2020-07-22 14:35 | Progress Note ---
Assessment and Plan 1. GI bleed - EGD/Colon on 07/15 showing old blood throughout colon, with diverticulosis, and no active bleeding. CTA showed no evidence of bleeding. DDx - diverticular bleed, vs ischemia or AVMs. No evidence of GI bleed. Hgb stable now. - monitor H/H and transfuse as needed - next step would be a nuclear bleeding scan, if pt rebleeds. - empiric PPI prophylaxis Will sign off. Please call as needed. Subjective Date of service: 07/22/20 Principal diagnosis: ARF; Septic Shock; COVID-19 PNA; Atrial fibrillation; Obesity Interval history: Pt intubated, no reported GI bleed. Objective - Exam Narrative Exam: Pt seen through glass doors, due to COVID. Intubated. Multiple lines in place. - Constitutional Vitals: Vital Signs - 12hr 07/22/20 07/22/20 07/22/20 02:46 03:00 03:16 Temperature Pulse Rate 68 70 68 Pulse Rate [ From Monitor] Respiratory 27 H 19 17 Rate Blood Pressure 115/44 108/42 109/46 O2 Sat by Pulse 97 97 96 Oximetry 07/22/20 07/22/20 07/22/20 03:30 03:46 04:00 Temperature 98.7 F Pulse Rate 66 64 64 Pulse Rate [ 64 From Monitor] Respiratory 16 15 14 Rate Blood Pressure 103/37 97/39 95/36 O2 Sat by Pulse 98 99 Oximetry 07/22/20 07/22/20 07/22/20 04:16 04:30 04:32 Temperature Pulse Rate 81 70 70 Pulse Rate [ From Monitor] Respiratory 10 L 10 L Rate Blood Pressure 109/93 182/64 130/57 O2 Sat by Pulse 97 96 95 Oximetry 07/22/20 07/22/20 07/22/20 04:46 05:00 05:16 Temperature Pulse Rate 69 67 68 Pulse Rate [ From Monitor] Respiratory 14 25 H 16 Rate Blood Pressure 142/61 141/58 142/55 O2 Sat by Pulse 96 95 Oximetry 07/22/20 07/22/20 07/22/20 05:30 05:46 06:00 Temperature Pulse Rate 70 67 71 Pulse Rate [ From Monitor] Respiratory 16 17 10 L Rate Blood Pressure 135/57 132/53 134/58 O2 Sat by Pulse 96 Oximetry 07/22/20 07/22/20 07/22/20 06:16 06:30 06:46 Temperature Pulse Rate 66 65 62 Pulse Rate [ From Monitor] Respiratory 23 25 H 25 H Rate Blood Pressure 118/54 110/49 104/48 O2 Sat by Pulse 96 98 99 Oximetry 07/22/20 07/22/20 07/22/20 07:00 07:16 07:30 Temperature Pulse Rate 62 62 63 Pulse Rate [ From Monitor] Respiratory 25 H 25 H 25 H Rate Blood Pressure 102/51 94/45 92/44 O2 Sat by Pulse 99 99 99 Oximetry 07/22/20 07/22/20 07/22/20 07:46 08:00 08:01 Temperature 97.1 F L Pulse Rate 60 70 65 Pulse Rate [ From Monitor] Respiratory 27 H 22 Rate Blood Pressure 97/48 102/48 119/75 O2 Sat by Pulse 100 100 100 Oximetry 07/22/20 07/22/20 07/22/20 08:16 08:30 08:46 Temperature Pulse Rate 65 68 68 Pulse Rate [ From Monitor] Respiratory 18 29 H 18 Rate Blood Pressure 114/54 138/66 136/58 O2 Sat by Pulse 99 99 99 Oximetry 07/22/20 07/22/20 07/22/20 09:00 09:16 09:30 Temperature Pulse Rate 66 71 71 Pulse Rate [ From Monitor] Respiratory 18 27 H 23 Rate Blood Pressure 112/50 132/66 122/54 O2 Sat by Pulse 98 98 98 Oximetry 07/22/20 07/22/20 07/22/20 09:46 10:26 10:30 Temperature Pulse Rate 70 73 69 Pulse Rate [ From Monitor] Respiratory 19 13 18 Rate Blood Pressure 123/53 104/44 118/52 O2 Sat by Pulse 98 98 98 Oximetry 07/22/20 07/22/20 07/22/20 10:36 10:40 10:46 Temperature Pulse Rate 70 70 70 Pulse Rate [ From Monitor] Respiratory 19 17 16 Rate Blood Pressure 118/52 102/44 102/44 O2 Sat by Pulse 98 96 97 Oximetry 07/22/20 07/22/20 07/22/20 10:50 10:56 11:00 Temperature Pulse Rate 76 98 H 81 Pulse Rate [ From Monitor] Respiratory 15 15 15 Rate Blood Pressure 113/58 113/58 113/58 O2 Sat by Pulse 98 99 98 Oximetry 07/22/20 07/22/2021 11:06 11:10 11:16 Temperature Pulse Rate 90 90 85 Pulse Rate [ From Monitor] Respiratory 17 15 12 Rate Blood Pressure 143/62 151/55 151/55 O2 Sat by Pulse 97 96 96 Oximetry 07/22/20 07/22/20 07/22/20 11:20 11:26 11:30 Temperature Pulse Rate 90 80 85 Pulse Rate [ From Monitor] Respiratory 11 L 15 12 Rate Blood Pressure 151/55 145/67 145/67 O2 Sat by Pulse 96 96 95 Oximetry 07/22/20 07/22/20 07/22/20 11:36 11:40 11:46 Temperature Pulse Rate 84 83 88 Pulse Rate [ From Monitor] Respiratory 12 12 13 Rate Blood Pressure 148/61 148/61 145/76 O2 Sat by Pulse 95 94 94 Oximetry 07/22/20 07/22/20 07/22/20 11:54 11:56 12:00 Temperature 97.1 F L Pulse Rate 89 90 Pulse Rate [ From Monitor] Respiratory 18 Rate Blood Pressure 145/76 145/76 145/76 O2 Sat by Pulse 90 92 95 Oximetry 07/22/20 07/22/20 07/22/20 12:06 12:10 12:16 Temperature Pulse Rate 77 73 81 Pulse Rate [ From Monitor] Respiratory 15 14 15 Rate Blood Pressure 145/76 145/76 145/76 O2 Sat by Pulse 93 93 95 Oximetry 07/22/20 07/22/20 07/22/20 12:20 12:26 12:30 Temperature Pulse Rate 76 78 73 Pulse Rate [ From Monitor] Respiratory 10 L 13 17 Rate Blood Pressure 145/76 111/52 114/47 O2 Sat by Pulse 94 94 94 Oximetry 07/22/20 07/22/20 07/22/20 12:36 12:40 12:46 Temperature Pulse Rate 78 79 95 H Pulse Rate [ From Monitor] Respiratory 14 14 19 Rate Blood Pressure 114/47 117/46 117/46 O2 Sat by Pulse 93 95 92 Oximetry 07/22/20 07/22/20 07/22/20 12:50 12:56 13:00 Temperature Pulse Rate 94 H 87 88 Pulse Rate [ From Monitor] Respiratory 13 16 21 Rate Blood Pressure 108/51 108/51 106/46 O2 Sat by Pulse 91 91 92 Oximetry 07/22/20 07/22/20 07/22/20 13:06 13:10 13:11 Temperature Pulse Rate 97 H 92 H 99 H Pulse Rate [ From Monitor] Respiratory 15 30 H Rate Blood Pressure 106/46 92/47 92/47 O2 Sat by Pulse 91 90 100 Oximetry 07/22/20 07/22/20 07/22/20 13:16 13:20 13:26 Temperature Pulse Rate 83 74 106 H Pulse Rate [ From Monitor] Respiratory 28 H 20 17 Rate Blood Pressure 92/47 100/42 100/42 O2 Sat by Pulse 92 92 93 Oximetry 07/22/20 07/22/20 07/22/20 13:30 13:35 13:40 Temperature Pulse Rate 105 H 106 H 108 H Pulse Rate [ From Monitor] Respiratory 14 21 19 Rate Blood Pressure 88/51 79/52 81/49 O2 Sat by Pulse 93 93 93 Oximetry 07/22/20 07/22/20 07/22/20 13:45 13:50 13:55 Temperature Pulse Rate 110 H 89 97 H Pulse Rate [ From Monitor] Respiratory 19 16 12 Rate Blood Pressure 100/52 100/52 100/52 O2 Sat by Pulse 93 94 93 Oximetry 07/22/20 07/22/20 07/22/20 14:00 14:06 14:10 Temperature Pulse Rate 98 H 78 87 Pulse Rate [ From Monitor] Respiratory 21 32 H 31 H Rate Blood Pressure 101/51 101/51 101/51 O2 Sat by Pulse 92 95 95 Oximetry 07/22/20 07/22/20 07/22/20 14:15 14:20 14:26 Temperature Pulse Rate 90 92 H 81 Pulse Rate [ From Monitor] Respiratory 31 H 29 H 32 H Rate Blood Pressure 98/52 98/52 100/52 O2 Sat by Pulse 96 94 94 Oximetry 07/22/20 14:30 Temperature Pulse Rate 98 H Pulse Rate [ From Monitor] Respiratory 32 H Rate Blood Pressure 98/54 O2 Sat by Pulse 95 Oximetry - Labs CBC & Chem 7: 07/21/20 05:02 07/19/20 09:15 Labs: Abnormal lab results 07/22/20 Range/Units 04:11 POC ABG pO2 67.7 L (83-108) mmHg ABG Hemoglobin 7.4 L (12.0-17.5) ABG Oxyhemoglobin 91.7 L (94-98) ABG Potassium 2.9 L (3.40-4.50) mmol/L ABG Glucose 105 H (65-95) mg/dL Arterial Blood Glucose 105 H (65-95) mg/dL Medications & Allergies - Medications Allergies/Adverse Reactions: Allergies No Known Allergies Allergy (Unverified 06/17/20 14:24) Home Medications: Home Medications Medication Instructions Recorded Confirmed Last Taken Type Losartan/Hydrochlorothiazide 1 each PO QDAY 06/19/20 06/19/20 Unknown History [Losartan-Hctz 100-25 mg Tab] amLODIPine [Norvasc] 5 mg PO DAILY 06/19/20 06/19/20 Unknown History Active Medications: Generic Name Dose Route Start Last Admin Trade Name Freq PRN Reason Stop Dose Admin Acetaminophen 650 mg 06/17/20 14:17 07/03/20 09:16 Acetaminophen 325 Mg Tab PO 650 mg Q4H PRN Administration Pain MILD(1-3)/Fever >100.5/ROBERTS Albuterol 2.5 mg 07/19/20 12:15 Albuterol 2.5 Mg/3 Ml Nebu IH Q6HRT PRN Shortness Of Breath Amiodarone HCl 200 mg 07/19/20 14:00 07/22/20 09:13 Amiodarone 200 Mg Tab PO 200 mg BID CONNOR Administration Lipase/Protease/Amylase 1 each 06/19/20 12:15 Lipase 10,500/Protease 25,000/Amylase 43,750 (Units) Dr Kulkarni FEEDTUBE PRN PRN For Clogged Feeding Tube Ascorbic Acid 250 mg 06/17/20 22:00 07/22/20 09:13 Ascorbic Acid 250 Mg Tab PO 250 mg BID CONNOR Administration Cholecalciferol 1,000 unit 06/18/20 10:00 07/22/20 09:13 Cholecalciferol (Vit D3) 1000 Unit (25 Mcg) Tab PO 1,000 unit DAILY CONNOR Administration Docusate Sodium 100 mg 06/23/20 15:00 07/22/20 09:13 Docusate Sodium 100 Mg/10 Ml Oral Liqd FEEDTUBE 100 mg BID CONNOR Administration Fentanyl 50 mcg 06/18/20 01:02 07/09/20 00:20 Fentanyl 100 Mcg/2 Ml Inj IV 50 mcg Q10MIN PRN Administration ANALGESIA Heparin Sodium (Porcine) 5,000 unit 06/22/20 12:53 06/30/20 13:36 Heparin 10,000 Unit/1 Ml Vial IV 5,000 unit PAM PRN Administration hemodialysis Hydrophilic Ointment 1 applic 06/17/20 22:52 07/12/20 20:22 Lip Therapy Vaseline TP 1 applic Q2HR PRN Administration Dry Lips Propofol 1,000 mg in 100 mls @ 3.402 mls/hr 06/18/20 01:00 07/22/20 10:24 Diprivan 10 Mg/Ml IV 10 mcg/kg/min TITR CONNOR 6.804 mls/hr Administration Protocol 5 MCG/KG/MIN Fentanyl Citrate 2,000 mcg in 100 mls @ 8 mls/hr 06/18/20 02:00 07/22/20 08:25 Fentanyl Drip Premix IV 2 mcg/kg/hr TITR CONNOR 16 mls/hr Administration Protocol 1 MCG/KG/HR Norepinephrine 4 mg in 250 mls @ 7.5 mls/hr 07/08/20 02:06 07/22/20 14:30 Levophed Drip 4 Mg/Ns 250 Ml IV 6 mcg/min TITR CONNOR 22.5 mls/hr Titration Protocol 2 MCG/MIN Vasopressin 20 unit/ Sodium 101 mls @ 9.09 mls/hr 07/11/20 11:00 07/18/20 15:36 Chloride IV 0 units/min TITR CONNOR 0 mls/hr Titration Protocol 0.03 UNITS/MIN Sodium Chloride 100 mls @ 999 mls/hr 07/19/20 08:22 Nacl 0.9% IV PAM PRN Hypotension Ampicillin Sodium 2 gm in 100 mls @ 100 mls/hr 07/21/20 12:00 07/22/20 00:57 Ampicillin/Ns 2 Gm/100 Ml IV 08/02/20 12:59 100 mls/hr Q12H CONNOR Administration Protocol Insulin Human Regular 0 units 06/18/20 12:00 07/22/20 13:20 Insulin Regular, Human 100 Units/1 Ml SUB-Q Not Given Q6HR [facility] Protocol Multi-Ingred Cream/Lotion/Oil/Oint 1 applic 06/17/20 22:52 07/12/20 20:22 Mineral Oil/Petrolatum, White Ophth Oint 3.5 Gm OU 1 applic Q4HR PRN Administration Dry Eye(s) Ondansetron HCl 4 mg 06/17/20 14:17 Ondansetron 4 Mg/2 Ml Inj IV Q8H PRN Nausea And Vomiting Pantoprazole Sodium 40 mg 07/16/20 22:00 07/22/20 09:13 Pantoprazole 40 Mg Inj IV 40 mg BID CONNOR Administration Polyethylene Glycol 17 gm 06/23/20 15:00 07/22/20 09:12 Polyethylene Glycol 3350 17 Gm Powder PO 17 gm QDAY CONNOR Administration Quetiapine Fumarate 200 mg 06/28/20 13:00 07/22/20 09:13 Quetiapine 200 Mg Tab PO 200 mg BID CONNOR Administration Simple Syrup 15 ml 06/19/20 12:15 07/19/20 00:48 Simple Syrup 15 Ml FEEDTUBE 15 ml PRN PRN Administration Hypoglycemia Simple Syrup 30 ml 06/19/20 12:15 07/19/20 06:04 Simple Syrup 15 Ml FEEDTUBE 30 ml PRN PRN Administration Hypoglycemia Sodium Bicarbonate 325 mg 06/19/20 12:15 07/11/20 20:00 Sodium Bicarbonate 325 Mg Tab FEEDTUBE 325 mg PRN PRN Administration For Clogged Feeding Tube Sodium Bicarbonate 650 mg 07/04/20 10:00 07/22/20 09:13 Sodium Bicarbonate 650 Mg Tab PO 650 mg TID CONNOR Administration Sodium Chloride 10 ml 06/17/20 22:00 07/22/20 09:42 Sodium Chloride 0.9% 10 Ml Flush Syringe IV 10 ml BID CONNOR Administration Sodium Chloride 10 ml 06/17/20 14:17 Sodium Chloride 0.9% 10 Ml Flush Syringe IV PRN PRN LINE FLUSH Sodium Hypochlorite 1 applic 07/20/20 10:00 07/22/20 09:14 Sodium Hypochlorite, Dakin's 1/2 Strength (0.25%) 473 Ml Topical Soln TP 1 applicatio BID CONNOR Administration Sodium Polystyrene Sulfonate 15 gm 07/03/20 11:19 07/05/20 10:36 Sodium Polystyrene 15 Gm/60 Ml Oral Liqd PO 15 gm Q6HR PRN Administration Hyperkalemia Zinc Sulfate 220 mg 06/17/20 22:00 07/22/20 09:13 Zinc Sulfate 220 Mg Cap PO 220 mg BID CONNOR Administration HEART Score - HEART Score Troponin: Troponin T < 0.010 ng/mL (0.00-0.029) 06/17/20 12:33
--- NOTE | 2020-07-22 15:39 | Progress Note ---
Assessment and Plan Assessment and plan: -S/p vasopressor support (CCM and ID consulted, appreciate recommendations) -S/p dexamethasone and remdesivir therapy, contact/droplet isolation, vitamin C/vitamin D/zinc, anticoagulation per protocol, trend inflammatory markers -Wean mechanical ventilation as tolerated, VAP bundle -HD per nephrology -Transfuse for hemaglobin less than 7, s/p 9 units PRBC during stay -Nephrology, ID, heme-onc, GI , cardiology consulted,appreciate recommendations -BCR-ABL mutation testing pending -Patient is off pressors and his antibiotics were deescalated to ampicillin (renally dosed) -Per infectious disease: Unless repeat blood cultures turn positive is no need to exchange/remove lines which were placed with positive blood cultures -Monitor leukocytosis and fevers -Hold systemic anticoagulation in setting of severe anemia -Amiodarone for rate control -s/p debridement by Dr. Kirk, WOCN consulted, WC per nursing -07/22 COVID-19 PCR negative, discontinue contact/droplet isolation DVT prophylaxis: GI prophylaxis, heparin subcu, SCDs to bilateral LE while in bed Disposition: ICU, ?placement ?trach/peg ?Ltach The high probability of a clinically significant, sudden or life threatening deterioration of the [multi] system(s) required my full and direct attention, intervention and personal management. The aggregate critical care time was [35] minutes. This time is in addition to time spent performing reported procedures but includes the following: [x] Data Review and interpretation [x] Patient assessment and monitoring of vital signs [x] Documentation [x] Medication orders and management History Interval history: 59-year-old white male who was admitted for pneumonia secondary to Covid with associated respiratory failure and sepsis. Severe septic shock COVID-19 pneumonia Sacral wound, stage 4 Acute metabolic encephalopathy Acute hypoxic respiratory failure Enterococcus bacteremia Pneumomediastinum Acute kidney injury likely secondary to acute tubular necrosis which progressed to hemodialysis SVT/proximal atrial fibrillation Elevated LFTs Anemia likely due to severe sepsis had declining renal function Morbid obesity Leukocytosis Hyperkalemia Hypocalcemia Hypoalbuminemia 06/18: Patient got intubated overnight. Patient was placed on BiPAP to maintain oxygenation with 100% FiO2 but apparently he found to take off his argueta which made his oxygen saturation go down at 60s/50s and patient was found altered mental status. Code met was called immediately. Patient was transferred to ICU and intubated, patient currently on 2 pressors, intubated with 100% FiO2, renal function noted to be decline, nephrology consulted. Discussed with [place] physician Dr. Thompson and requested call back on Saturday. Poor prognosis, continue to monitor with aggressive supportive care. Also called family/ to update clinical status. 06/19: Repeat COVID test was positive. cont cefepime, remdesivir per ID recommendation. follow inflammatory markers, cbc, bmp. placed on heparin drip for atrial fib 06/20: Remains on mechanical ventilation, on 2 pressors, on heparin drip. discussed with and daughter by phone. Renal function declining. cont supportive care for now. 06/21: Renal function cont to decline, urine outpt sig decreased. started on lasix 80mg BID, plan to follow urine output, if no improvement patient need to start on HD. called and daughter today. updated all clinical details 06/22: Renal function continues to decline with uremia and hyperkalemia. Will need to proceed with hemodialysis. Nephrology discussed with the family and they agrees for the hemodialysis. Patient remains on pressor support and mechanical ventilation. Vas-Cath placed today by vascular started on hemodialysis today. 06/23: 2nd round of HD today, remains on 2 pressors. per RN not tolerating TF, has no record of BM since 06/18. start on stool softner. follow cbc/bmp. updated family ( and daughter) by phone -all question answered to best of my knowledge and to their satisfaction. Patient remains critically ill with a very poor prognosis. 06/24: Continue supportive care, Very poor prognosis, Funeral Director to discuss wit h family in am due to the futility of the condition. 06/25/2020 continue supportive care very poor prognosis 06/26/2020 continue supportive care very poor prognosis family updated 06/27/2020 continue supportive care and weaning if possible 06/28/2020 continue supportive care, talk with at length 06/29: Resumed care. K level persistently high. give one dose of bicarbonate, plan for HD today, recheck k after HD. updated family by phone 06/30: updated family by phone. Patient remains on amiodarone drip and vasopressin. Getting HD at the bedside. Tolerating tube feeding at low rate. 07/01: Hb dropped to 6.4 today, transfuse one unit PRBC. patient is off pressor today, remains on amioderone. cont to monitor 07/02: Called patient and updated clinical details. Patient remains critically ill, still intubated. Patient's oxygen requirement and PEEP pressure has went down. Continue weaning protocol per critical care recommendation. Patient remains off pressor. Continue to wean off from amiodarone and plan to rate control with p.o. medications. Tolerating tube feeding. H&H stable today. Order for stool for occult blood. Monitor H&H and BMP. Continue to follow clinically 07/03: discussed with [facility] physician today. Patient back on 100percent Fio2 since last night. planned for emergent Hd today. spiked fever, start IV Cefepime + Vancomycin renally dosed. Restarted Levophed today, remains on amiodarone drip. Patient family was updated by critical care attending today. 07/04: Patient has hemodialysis yesterday and also plan for today for volume ov erload and pulmonary edema. Patient currently on 80% FiO2. Remains on Levophed and amiodarone. Hemoglobin dropped to 6.7 without any evidence of active bleeding. LFTs remain stable. Repeat Covid test on 06/30 and 07/03 remains positive. Will transfuse another unit of packed RBC today. Called family for update -explained family that patient is critically ill with very poor prognosis. 07/05: Patient on 70% FiO2 with PEEP of 14. h/h stable after transfusion. hyperkalemia improved, cont sodiumbicarbonate pill with TF. follow BMP. off levophed today, remains on amioderone. poor prognosis. 07/06: Patient remains on amiodarone drip, maintaining BP without any pressor. FiO2 requirement trended down to 60% with PEEP of 14. Continue to follow clinically. Plan to wean off amiodarone drip as tolerated. Wean off from sedation as tolerated. Updated family. Patient remains critically ill with poor prognosis. 07/07: Called family for update. Off amiodarone drip today, patient also off pressor. FiO2 requirement trended up again to 80-100%. Continue to provide supportive care, monitor clinically. Having difficulty to wean off from the vent support. Patient is persistently positive for COVID-19 and COVID-19 antibody is nonreactive. Patient remains critically ill with very poor progn osis. 07/08: Continue supportive care. 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 Prognosis remains guarded to poor. Management per team. Critical care time 35-minute 07/09/20 patient is tachycardic. Heart rate 121. Hemoglobin 7.3. Patient is having hemodialysis. Continue supportive care. Patient having difficulty to wean off from the vent support. Prognosis is poor. Nephrology and cardiology follow-up. Recheck CBC BMP in the morning. Continue current management. 07/10/20 patient seen and examined, remains on full ventilator patient is doing better. Patient is off pressor. heart rate 123. Hemoglobin 6.8 and hematocrit 20.7. WBC is 18.1. Continue supportive care. Patient having difficulty to wean off from the vent support. We will started on Zosyn 4.5 g IV every 8 hours. Will transfuse 1 unit of packed red blood cell. Prognosis is poor. Nephrology and cardiology follow up. Recheck CBC BMP in the morning 07/11: remains off vasopressor, h/h appropriately responded to 1 unit PRBC. HD today. Remain on MV with fiO2 at 70%. peep 10. No acute events reported o vernight. 07/12: Patient remains in atrial fibrillation on the alarm security or surveillance monitor, vasopressor support with Levophed and vasopressin, sedated with fentanyl and propofol. Vent settings: CMV 500/25/14/0.60. Patient remains hypercarbic on ABG 07/13: Patient remains on vasopressin, fentanyl and propofol with rectal tube in place. This morning some examination patient was on assist control 25/500/14/0.60. Patient received hemodialysis today. No acute events reported overnight. 07/14: Remains on vasopressin, fentanyl and propofol with tube in place. Rectal tube in place with noted blood clots, GI consulted, on 07/13 H/H dropped from 8.7/27 to 7.4/22 and anticoagulation discontinued. This morning I spoke to his who still wishes for the patient to remain a full code despite update with continued use of vasopressor (vasopressin), current ventilatory support (CMV 500/25/14/0.60) and recent development of rectal bleeding. Patient's family requests an update from [facility] and GI. Cardio changed amio from PO to IV given elevated HR 07/15: Today the patient received a total of 5 units of PRBC and is still having bleeding through his rectal tube. CTA abdomen/pelvis is pending, patient remains on Levophed, fentanyl, propofol, vasopressin and received hemodialysis today. He was also hyperkalemic today to 6 and he received insulin and D50. Extensive conversation with family conducted by CCM and hospitalist and his and 2 daughters did visit him today at the bedside. 07/16: Continues with full ventilatory support. FMS still inplace with some loose bloody stool. Still on multiple pressors, Bilateral swollen and generalized anascara. Monitor H/H and transfuse as needed. Monitor K level. Discussed with family at bedside yesterday. 07/17: Continue supportive care, transfusion blood possible in am with HD, continue abx, very poor prognosis, blood pressure still labile. Discussed with nurse at bedside 07/18: CTA abdomen/pelvis completed, antibiotics changed to Zosyn per infectious disease, remains on mechanical ventilation 450/25/12/0.55 continue amiodarone drip for 24 more hours, blood culture grew Enterococcus. Remains sedated on propofol and fentanyl. Not on vasopressor support today 07/19: No acute events reported overnight, remains sedated with fentanyl and propofol and off vasopressor therapy today. 07/20: s/p debridement with surgery today, remains on fentanyl, propofol, Levophe d and current vent settings 450/25/10/0.45. Patient will be transferred to a bariatric bed once available. 07/21: Continue current management, wean ventilator as tolerated, IV antibiotics deescalated to ampicillin. Per infectious disease no need to exchange/remove lines unless repeat blood cultures turn positive. The time my examination patient was sedated on fentanyl and propofol and remains off vasopressor support. 07/22: At the time my examination patient is sedated on fentanyl and propofol and remains off vasopressor support, repeat COVID-19 PCR negative. Patient remains on ampicillin. H/H remained stable and GI has signed off. Mechanical ventilation weaning as tolerated. Hospitalist Physical - Constitutional Vitals: Temp Pulse Resp BP Pulse Ox 97.1 F L 98 H 32 H 98/54 95 07/22/20 12:00 07/22/20 14:30 07/22/20 14:30 07/22/20 14:30 07/22/20 14:30 General appearance: Present: mild distress, well-nourished - EENT Eyes: Present: PERRL - Neck Neck: Present: normal ROM - Respiratory Respiratory effort: normal Respiratory: bilateral: diminished - Cardiovascular Rhythm: regular Heart Sounds: Present: S1 & S2. Absent: systolic murmur, diastolic murmur - Extremities Extremities: no ischemia, pulses intact, pulses symmetrical, No edema Peripheral Pulses: within normal limits - Abdominal General gastrointestinal: soft, non-tender, non-distended, normal bowel sounds - Integumentary Integumentary: Present: warm, dry - Psychiatric Psychiatric: other (Sedated) - Neurologic Neurologic: other HEART Score - HEART Score Troponin: Troponin T < 0.010 ng/mL (0.00-0.029) 06/17/20 12:33 Results - Labs CBC & Chem 7: 07/21/20 05:02 07/19/20 09:15 Labs: Laboratory Last Values WBC 32.9 K/mm3 (4.5-11.0) H 07/21/20 05:02 RBC 2.78 M/mm3 (3.65-5.03) L 07/21/20 05:02 Hgb 8.5 gm/dl (11.8-15.2) L 07/21/20 05:02 Hct 25.2 % (35.5-45.6) L 07/21/20 05:02 MCV 91 fl (84-94) 07/21/20 05:02 MCH 31 pg (28-32) 07/21/20 05:02 MCHC 34 % (32-34) 07/21/20 05:02 RDW 15.7 % (13.2-15.2) H 07/21/20 05:02 Plt Count 74 K/mm3 (140-440) L 07/21/20 05:02 Lymph % (Auto) 5.6 % (13.4-35.0) L 07/12/20 03:40 [place] % (Auto) 7.4 % (0.0-7.3) H 07/12/20 03:40 Eos % (Auto) 2.8 % (0.0-4.3) 07/12/20 03:40 Baso % (Auto) 0.3 % (0.0-1.8) 07/12/20 03:40 Lymph # (Auto) 1.4 K/mm3 (1.2-5.4) 07/12/20 03:40 [place] # (Auto) 1.8 K/mm3 (0.0-0.8) H 07/12/20 03:40 Eos # (Auto) 0.7 K/mm3 (0.0-0.4) H 07/12/20 03:40 Baso # (Auto) 0.1 K/mm3 (0.0-0.1) 07/12/20 03:40 Add Manual Diff Complete 07/17/20 15:25 Total Counted 100 07/17/20 15:25 Seg Neutrophils % Thickener Operator 07/17/20 15:25 Seg Neuts % (Manual) 87.0 % (40.0-70.0) H 07/17/20 15:25 Band Neutrophils % 2 % 07/17/20 15:25 Lymphocytes % (Manual) 3.0 % (13.4-35.0) L 07/17/20 15:25 Reactive Lymphs % (Man) 1.0 % 06/23/20 04:00 Monocytes % (Manual) 7.0 % (0.0-7.3) 07/17/20 15:25 Eosinophils % (Manual) 4.0 % (0.0-4.3) 07/11/20 06:52 Metamyelocytes % 1 % 07/17/20 15:25 Myelocytes % 0 % 07/17/20 15:25 Promyelocytes % 0 % 07/17/20 15:25 Nucleated RBC % Not Reportable 07/17/20 15:25 Seg Neutrophils # 20.4 K/mm3 (1.8-7.7) H 07/12/20 03:40 Seg Neutrophils # Man 40.2 K/mm3 (1.8-7.7) H 07/17/20 15:25 Band Neutrophils # 0.9 K/mm3 07/17/20 15:25 Lymphocytes # (Manual) 1.4 K/mm3 (1.2-5.4) 07/17/20 15:25 Abs React Lymphs (Man) 0.0 K/mm3 07/17/20 15:25 Monocytes # (Manual) 3.2 K/mm3 (0.0-0.8) H 07/17/20 15:25 Eosinophils # (Manual) 0.0 K/mm3 (0.0-0.4) 07/17/20 15:25 Basophils # (Manual) 0.0 K/mm3 (0.0-0.1) 07/17/20 15:25 Metamyelocytes # 0.5 K/mm3 07/17/20 15:25 Myelocytes # 0.0 K/mm3 07/17/20 15:25 Promyelocytes # 0.0 K/mm3 07/17/20 15:25 Blast Cells # 0.0 K/mm3 07/17/20 15:25 Pathologist Review 07/17/20 15:25 WBC Morphology Not Reportable 07/17/20 15:25 Hypersegmented Neuts Not Reportable 07/17/20 15:25 Hyposegmented Neuts Not Reportable 07/17/20 15:25 Hypogranular Neuts Not Reportable 07/17/20 15:25 Smudge Cells Not Reportable 07/17/20 15:25 Toxic Granulation Not Reportable 07/17/20 15:25 Toxic Vacuolation Not Reportable 07/17/20 15:25 Dohle Bodies Not Reportable 07/17/20 15:25 Pelger-Huet Anomaly Not Reportable 07/17/20 15:25 Carlito Rods Not Reportable 07/17/20 15:25 Platelet Estimate Not Reportable 07/17/20 15:25 Clumped Platelets Not Reportable 07/17/20 15:25 Plt Clumps, EDTA Not Reportable 07/17/20 15:25 Large Platelets Not Reportable 07/17/20 15:25 Giant Platelets Not Reportable 07/17/20 15:25 Platelet Satelliting Not Reportable 07/17/20 15:25 Plt Morphology Comment Not Reportable 07/17/20 15:25 RBC Morphology Not Reportable 07/17/20 15:25 Dimorphic RBCs Not Reportable 07/17/20 15:25 Polychromasia Not Reportable 07/17/20 15:25 Hypochromasia Not Reportable 07/17/20 15:25 Poikilocytosis Not Reportable 07/17/20 15:25 Anisocytosis Rare 07/17/20 15:25 Microcytosis Rare 07/17/20 15:25 Macrocytosis Not Reportable 07/17/20 15:25 Spherocytes Not Reportable 07/17/20 15:25 Pappenheimer Bodies Not Reportable 07/17/20 15:25 Sickle Cells Not Reportable 07/17/20 15:25 Target Cells Not Reportable 07/17/20 15:25 Tear Drop Cells Not Reportable 07/17/20 15:25 Ovalocytes Not Reportable 07/17/20 15:25 Stomatocytes Rare 07/10/20 03:55 Helmet Cells Not Reportable 07/17/20 15:25 [place] Bodies Not Reportable 07/17/20 15:25 [place] Rings Not Reportable 07/17/20 15:25 [place] Cells Not Reportable 07/17/20 15:25 Bite Cells Not Reportable 07/17/20 15:25 Crenated Cell Not Reportable 07/17/20 15:25 Elliptocytes Not Reportable 07/17/20 15:25 Acanthocytes (Spur) Not Reportable 07/17/20 15:25 Rouleaux Not Reportable 07/17/20 15:25 Hemoglobin C Crystals Not Reportable 07/17/20 15:25 Schistocytes Not Reportable 07/17/20 15:25 Malaria parasites Not Reportable 07/17/20 15:25 Victoriano Bodies Not Reportable 07/17/20 15:25 Hem Pathologist Commnt Sent to pathology 07/17/20 15:25 PT 18.2 Sec. (12.2-14.9) H 07/17/20 15:25 INR 1.52 (0.87-1.13) H 07/17/20 15:25 APTT 28.5 Sec. (24.2-36.6) 06/26/20 05:47 Fibrinogen 419 mg/dl (211-480) 07/15/20 08:21 D-Dimer 6608.00 ng/mlDDU (0-234) H 07/03/20 14:50 Heparin Anti-Xa Level < 0.10 U.I./ml (0.3-0.7) L 06/26/20 01:30 ABG pH 7.399 (7.320-7.450) 07/22/20 04:11 POC ABG pCO2 44.3 mmHg (32.0-48.0) 07/22/20 04:11 ABG pCO2 56.4 mm Hg 07/05/20 04:30 POC ABG pO2 67.7 mmHg (83-108) L 07/22/20 04:11 ABG pO2 151.9 mm Hg (80.0-90.0) H 07/05/20 04:30 POC ABG HCO3 26.8 07/22/20 04:11 ABG HCO3 26.8 mmol/L (20.0-26.0) H 07/05/20 04:30 ABG O2 Saturation 93.2 (0-100) 07/22/20 04:11 ABG O2 Content 5.0 (0.0-44) 07/04/20 05:20 POC ABG Base Excess 1.7 07/22/20 04:11 ABG Base Excess 0.1 mmol/L (-2.0-3.0) 07/05/20 04:30 ABG Hemoglobin 7.4 (12.0-17.5) L 07/22/20 04:11 ABG Oxyhemoglobin 91.7 (94-98) L 07/22/20 04:11 ABG Carboxyhemoglobin 1.7 % (0.0-5.0) 07/05/20 04:30 ABG Methemoglobin 0.3 (0.0-1.5) 07/22/20 04:11 ABG Sodium 136.1 mmol/L (136.0-145.0) 07/22/20 04:11 ABG Potassium 2.9 mmol/L (3.40-4.50) L 07/22/20 04:11 ABG Chloride 105.0 mmol/L (98-107) 07/22/20 04:11 ABG Glucose 105 mg/dL (65-95) H 07/22/20 04:11 Oxyhemoglobin 96.5 % (95.0-99.0) 07/05/20 04:30 Carboxyhemoglobin 1.3 (0.5-1.5) 07/22/20 04:11 FiO2 50 07/20/20 06:00 FiO2 % 40 07/22/20 04:11 Sodium 135 mmol/L (137-145) L 07/19/20 09:15 Potassium 4.2 mmol/L (3.6-5.0) D 07/19/20 09:15 Chloride 96.3 mmol/L (98-107) L 07/19/20 09:15 Carbon Dioxide 25 mmol/L (22-30) 07/19/20 09:15 Anion Gap 18 mmol/L 07/19/20 09:15 BUN 61 mg/dL (9-20) H 07/19/20 09:15 Creatinine 2.8 mg/dL (0.8-1.3) H 07/19/20 09:15 Estimated GFR 28 ml/min 07/19/20 09:15 BUN/Creatinine Ratio 22 % 07/19/20 09:15 Glucose 87 mg/dL (75-100) 07/19/20 09:15 POC Glucose 105 mg/dL (70-105) 07/22/20 11:13 Lactic Acid 1.40 mmol/L (0.7-2.0) 07/13/20 08:48 Calcium 6.8 mg/dL (8.4-10.2) L 07/19/20 09:15 Phosphorus 9.40 mg/dL (2.5-4.5) H 06/30/20 03:50 Magnesium 2.70 mg/dL (1.7-2.3) H 06/18/20 20:33 Ferritin 1171.0 ng/mL (30.0-300.0) H 07/03/20 14:50 Total Bilirubin 0.40 mg/dL (0.1-1.2) 07/19/20 09:15 Direct Bilirubin 0.5 mg/dL (0-0.2) H 07/05/20 08:21 Indirect Bilirubin 0.1 mg/dL 07/05/20 08:21 AST 54 units/L (5-40) H 07/19/20 09:15 ALT 65 units/L (7-56) H 07/19/20 09:15 Alkaline Phosphatase 116 units/L (35-129) 07/19/20 09:15 Lactate Dehydrogenase 525 units/L (91-180) H 07/03/20 14:50 Total Creatine Kinase 618 units/L (55-170) H 06/29/20 Unknown Troponin T < 0.010 ng/mL (0.00-0.029) 06/17/20 12:33 C-Reactive Protein 31.50 mg/dL (0.00-1.30) H 07/03/20 14:50 Total Protein 4.3 g/dL (6.3-8.2) L 07/19/20 09:15 Albumin 1.8 g/dL (3.9-5) L 07/19/20 09:15 Albumin/Globulin Ratio 0.7 % 07/19/20 09:15 Triglycerides 306 mg/dL (2-149) H 07/18/20 05:06 Procalcitonin 6.05 ng/mL (<0.15) 07/13/20 06:59 Arterial Blood Glucose 105 mg/dL (65-95) H 07/22/20 04:11 Arterial Blood Ionized Calcium 4.9 mg/dL (4.6-5.3) 07/22/20 04:11 Urine Color Yellow (Yellow) 06/17/20 15:57 Urine Turbidity Clear (Clear) 06/17/20 15:57 Urine pH 6.0 (5.0-7.0) 06/17/20 15:57 Ur Specific [place] 1.019 (1.003-1.030) 06/17/20 15:57 Urine Protein 30 mg/dl mg/dL (Negative) 06/17/20 15:57 Urine Glucose (UA) Neg mg/dL (Negative) 06/17/20 15:57 Urine Ketones Neg mg/dL (Negative) 06/17/20 15:57 Urine Blood Sm (Negative) 06/17/20 15:57 Urine Nitrite Neg (Negative) 06/17/20 15:57 Ur Reducing Substances Not Reportable 06/17/20 15:57 Urine Bilirubin Neg (Negative) 06/17/20 15:57 Urine Ictotest Not Reportable 06/17/20 15:57 Urine Urobilinogen < 2.0 mg/dL (<2.0) 06/17/20 15:57 Ur Leukocyte Esterase Neg (Negative) 06/17/20 15:57 Urine WBC (Auto) 1.0 /HPF (0.0-6.0) 06/17/20 15:57 Urine RBC (Auto) 2.0 /HPF (0.0-6.0) 06/17/20 15:57 Urine Mucus Few /HPF 06/17/20 15:57 Urine Creatinine 192.4 mg/dL (0.1-20.0) H 06/18/20 15:00 Urine Sodium 28 mmol/L 06/18/20 15:00 Urine Chloride 31.1 mmolL (110-250) L 06/18/20 15:00 Nasal Screen MRSA (PCR) Negative (Negative) 06/19/20 10:38 Vancomycin Trough 22.7 ug/mL (5.0-20.0) H 06/20/20 08:25 Random Vancomycin 13.5 ug/mL (0-40.0) 07/16/20 07:17 Coronavirus (PCR) Negative (Negative) 07/22/20 Unknown Hepatitis A IgM Ab Non-reactive (NonReactive) 06/22/20 17:00 Hep Bs Antigen Non-reactive (Negative) 06/22/20 17:00 Hep B Core IgM Ab Non-reactive (NonReactive) 06/22/20 17:00 Hepatitis C Antibody Non-reactive (NonReactive) 06/22/20 17:00 SARS-CoV-2 IgG Ab Nonreactive (NonReactive) 07/04/20 05:20 Blood Type A POSITIVE 07/17/20 Unknown Antibody Screen Negative 07/17/20 Unknown Crossmatch See Detail 07/17/20 Unknown Microbiology: Microbiology 07/18/20 18:20 Peripheral/Venous Blood Culture - Preliminary NO GROWTH AFTER 72 HOURS 07/18/20 18:05 Peripheral/Venous Blood Culture - Preliminary NO GROWTH AFTER 72 HOURS - Diagnostic Impressions Diagnostic Impressions: Echocardiogram 06/29/20 06:00 Transthoracic Echocardiogram Indication: A-fib BP: 105/47 HR: 99 Conclusions *The study is technically very difficult and limited due to poor acoustic windows. *Global left ventricular wall motion and contractility are within normal limits. *The estimated ejection fraction is 55-60%. *There is no pericardial effusion. Findings Procedure Info: The study quality is technically difficult. The study is technically limited due to poor acoustic windows. Left Ventricle: Global left ventricular wall motion and contractility are within normal limits. Global left ventricular systolic function is normal. The estimated ejection fraction is 55-60%. Left Atrium: The left atrium is not well visualized. Right Ventricle: The right ventricle is not well visualized. Right Atrium: The right atrium is not well visualized. Aortic Valve: The aortic valve is not well visualized. Mitral Valve: The mitral valve is not well visualized. Tricuspid Valve: The tricuspid valve is not well visualized. Pulmonic Valve: The pulmonic valve is not well visualized. Pericardium: There is no pericardial effusion. Venous: There is no change in the dimension of the inferior vena cava with respiration consistent with markedly increased right atrial pressure. [place]ell/IV: Voiding Method Incontinent Active Medications - Current Medications Current Medications: Generic Name Dose Route Start Last Admin Trade Name Freq PRN Reason Stop Dose Admin Acetaminophen 650 mg 06/17/20 14:17 07/03/20 09:16 Acetaminophen 325 Mg Tab PO 650 mg Q4H PRN Administration Pain MILD(1-3)/Fever >100.5/ROBERTS Albuterol 2.5 mg 07/19/20 12:15 Albuterol 2.5 Mg/3 Ml Nebu IH Q6HRT PRN Shortness Of Breath Amiodarone HCl 200 mg 07/19/20 14:00 07/22/20 09:13 Amiodarone 200 Mg Tab PO 200 mg BID CONNOR Administration Lipase/Protease/Amylase 1 each 06/19/20 12:15 Lipase 10,500/Protease 25,000/Amylase 43,750 (Units) Dr Shad FEEDTUBE PRN PRN For Clogged Feeding Tube Ascorbic Acid 250 mg 06/17/20 22:00 07/22/20 09:13 Ascorbic Acid 250 Mg Tab PO 250 mg BID CONNOR Administration Cholecalciferol 1,000 unit 06/18/20 10:00 07/22/20 09:13 Cholecalciferol (Vit D3) 1000 Unit (25 Mcg) Tab PO 1,000 unit DAILY CONNOR Administration Docusate Sodium 100 mg 06/23/20 15:00 07/22/20 09:13 Docusate Sodium 100 Mg/10 Ml Oral Liqd FEEDTUBE 100 mg BID CONNOR Administration Fentanyl 50 mcg 06/18/20 01:02 07/09/20 00:20 Fentanyl 100 Mcg/2 Ml Inj IV 50 mcg Q10MIN PRN Administration ANALGESIA Heparin Sodium (Porcine) 5,000 unit 06/22/20 12:53 06/30/20 13:36 Heparin 10,000 Unit/1 Ml Vial IV 5,000 unit PAM PRN Administration hemodialysis Hydrophilic Ointment 1 applic 06/17/20 22:52 07/12/20 20:22 Lip Therapy Vaseline TP 1 applic Q2HR PRN Administration Dry Lips Propofol 1,000 mg in 100 mls @ 3.402 mls/hr 06/18/20 01:00 07/22/20 10:24 Diprivan 10 Mg/Ml IV 10 mcg/kg/min TITR CONNOR 6.804 mls/hr Administration Protocol 5 MCG/KG/MIN Fentanyl Citrate 2,000 mcg in 100 mls @ 8 mls/hr 06/18/20 02:00 07/22/20 08:25 Fentanyl Drip Premix IV 2 mcg/kg/hr TITR [facility]NOR 16 mls/hr Administration Protocol 1 MCG/KG/HR Norepinephrine 4 mg in 250 mls @ 7.5 mls/hr 07/08/20 02:06 07/22/20 14:30 Levophed Drip 4 Mg/Ns 250 Ml IV 6 mcg/min TITR [facility] 22.5 mls/hr Titration Protocol 2 MCG/MIN Vasopressin 20 unit/ Sodium 101 mls @ 9.09 mls/hr 07/11/20 11:00 07/18/20 15:36 Chloride IV 0 units/min TITR CONNOR 0 mls/hr Titration Protocol 0.03 UNITS/MIN Sodium Chloride 100 mls @ 999 mls/hr 07/19/20 08:22 Nacl 0.9% IV PAM PRN Hypotension Ampicillin Sodium 2 gm in 100 mls @ 100 mls/hr 07/21/20 12:00 07/22/20 14:53 Ampicillin/Ns 2 Gm/100 Ml IV 08/02/20 12:59 100 mls/hr Q12H [facility] Administration Protocol Insulin Human Regular 0 units 06/18/20 12:00 07/22/20 13:20 Insulin Regular, Human 100 Units/1 Ml SUB-Q Not Given Q6HR [facility] Protocol Multi-Ingred Cream/Lotion/Oil/Oint 1 applic 06/17/20 22:52 07/12/20 20:22 Mineral Oil/Petrolatum, White Ophth Oint 3.5 Gm OU 1 applic Q4HR PRN Administration Dry Eye(s) Ondansetron HCl 4 mg 06/17/20 14:17 Ondansetron 4 Mg/2 Ml Inj IV Q8H PRN Nausea And Vomiting Pantoprazole Sodium 40 mg 07/16/20 22:00 07/22/20 09:13 Pantoprazole 40 Mg Inj IV 40 mg BID [facility] Administration Polyethylene Glycol 17 gm 06/23/20 15:00 07/22/20 09:12 Polyethylene Glycol 3350 17 Gm Powder PO 17 gm QDAY [facility] Administration Quetiapine Fumarate 200 mg 06/28/20 13:00 07/22/20 09:13 Quetiapine 200 Mg Tab PO 200 mg BID [facility] Administration Simple Syrup 15 ml 06/19/20 12:15 07/19/20 00:48 Simple Syrup 15 Ml FEEDTUBE 15 ml PRN PRN Administration Hypoglycemia Simple Syrup 30 ml 06/19/20 12:15 07/19/20 06:04 Simple Syrup 15 Ml FEEDTUBE 30 ml PRN PRN Administration Hypoglycemia Sodium Bicarbonate 325 mg 06/19/20 12:15 07/11/20 20:00 Sodium Bicarbonate 325 Mg Tab FEEDTUBE 325 mg PRN PRN Administration For Clogged Feeding Tube Sodium Bicarbonate 650 mg 07/04/20 10:00 07/22/20 14:53 Sodium Bicarbonate 650 Mg Tab PO 650 mg TID [facility] Administration Sodium Chloride 10 ml 06/17/20 22:00 07/22/20 09:42 Sodium Chloride 0.9% 10 Ml Flush Syringe IV 10 ml BID [facility] Administration Sodium Chloride 10 ml 06/17/20 14:17 Sodium Chloride 0.9% 10 Ml Flush Syringe IV PRN PRN LINE FLUSH Sodium Hypochlorite 1 applic 07/20/20 10:00 07/22/20 09:14 Sodium Hypochlorite, Dakin's 1/2 Strength (0.25%) 473 Ml Topical Soln TP 1 applicatio BID [facility]NOR Administration Sodium Polystyrene Sulfonate 15 gm 07/03/20 11:19 07/05/20 10:36 Sodium Polystyrene 15 Gm/60 Ml Oral Liqd PO 15 gm Q6HR PRN Administration Hyperkalemia Zinc Sulfate 220 mg 06/17/20 22:00 07/22/20 09:13 Zinc Sulfate 220 Mg Cap PO 220 mg BID [facility] Administration Nutrition/Malnutrition Assess - Dietary Evaluation Nutrition/Malnutrition Findings: Nutrition Notes Start: 06/18/20 10:28 Freq: Status: Active Protocol: Document 07/22/20 11:37 AL (Rec: 07/22/20 11:42 AL [id number]) Co-Sign 07/22/20 11:37 CW Nutrition Notes Initial or Follow up Reassessment Current Diagnosis Acute Kidney Injury,Sepsis, Respiratory Failure Other Pertinent Diagnosis COVID-19 (+), pneu Current Diet Nepro 1.8 at 50 ml/hr Labs/Tests No new labs Pertinent Medications Colace Vitamin D3 Miralax Propofol 6.8 ml/hr (180 kcal) Height 6 ft Weight 153.9 kg [place] Body Weight (kg) 80.90 BMI 46.0 Weight Status Morbidly Obese Subjective/Other Information F/U for stable TF. Pt tolerates TF at 50 ml/hr (goal rate). Pt still on the vent. Pt has new necrotic sacral pressure ulcer. Percent of energy/protein needs met: 89%/48% Burn Absent Trauma Absent GI Symptoms Other Skin Integrity/Comment Unstageable Sacral Pressure Ulcer Current % PO Negligible Minimum of two criteria No physical signs of malnutrition #3 Nutrition Diagnosis Increased nutrient needs ( specify in comment below) Comments: Protein Etiology need for wound healing As Evidenced by Signs and Symptoms Necrotic sacral pressure ulcer #2 Nutrition Diagnosis Overweight/obesity Diagnosis Progress(for reassessment Continues documentation) #1 Nutrition Diagnosis Inadequate oral intake Diagnosis Progress(for reassessment Continues documentation) Is patient on ventilator? Yes Is Patient Ambulatory and/or Out of Bed No REE-(Bremer-St. Jeor-confined to bed) 2856.504 Kcal/Kg value to use for calculation 14 Approximate Energy Requirements Using 2155 kcal/Kg Calculation Used for Recommendations Kcal/kg Additional Notes Protein needs up to >2 g/kg IBW: 162 g Fluid needs: 1,000 ml + output Nutrition Intervention Change Diet Order: TF Nutrition Support: Nepro 1.8 at 50 ml/hr Flush 215 ml q4h Kcal 2,160 Protein (gm) 97 Fluid (mL) 872 Goal #1 Tolerate TF at goal rate Goal #2 Meet energy and protein needs as best as possible. Goal #3 Wound healing Anticipated Discharge Needs: Unable to determine at the time. Follow-Up By: 07/26/20 Additional Comments F/U for TF tolerance, wound, and vent status
[2020-07-22 16:38] LABS: Red Blood Count 2.72 M/mm3 (3.65-5.03)
[2020-07-22 16:39] LABS: Hematocrit 24.5 % (35.5-45.6); Hemoglobin 8.1 gm/dl (11.8-15.2); Mean Corpuscular HGB Conc 33 % (32-34); Mean Corpuscular Volume 90 fl (84-94); Platelet Count 200 K/mm3 (140-440); Red Cell Distribution Width 16.1 % (13.2-15.2)
[2020-07-22] MEDS: NORepinephrine/NS 4 MG-250 ML 4 MG/250 ML BAG IV SCH (21:50)
[2020-07-22] MEDS: EPOETIN ALFA-EPBX 10,000 UNIT/1 ML VIAL IV PRN (22:21)
[2020-07-23] MEDS: INSULIN REGULAR, HUMAN 100 UNITS/1 ML SUB-Q SCH ×5 (00:14→17:32)
[2020-07-23] MEDS: AMPICILLIN/NS 2 GM/100 ML 2 GM/100 ML BAG IV SCH ×2 (00:26→12:47)
[2020-07-23] MEDS: NORepinephrine/NS 4 MG-250 ML 4 MG/250 ML BAG IV SCH ×4 (01:52→19:42)
[2020-07-23 06:10] LABS: Calcium 9.3 mg/dL (8.4-10.2)
--- NOTE | 2020-07-23 07:44 | Progress Note ---
Assessment and Plan - Patient Problems (1) GIRISH (acute kidney injury) Current Visit: Yes Status: Acute Plan to address problem: Likely prerenal in nature secondary to new onset of COVID-19 pneumonia with worsening sepsis and hypotension. Concern for acute tubular necrosis. Has now been on HD and this am is off pressor support. Will continue to monitor. Overall prognosis remains poor at this time. He is on a inpatient MWF HD schedule and we will assess daily needs for isolated UF treatment in order to optimize volume status. (2) Hyperkalemia Current Visit: Yes Status: Acute Plan to address problem: Manage with HD. (3) Acute respiratory failure with hypoxia Current Visit: Yes Status: Acute Plan to address problem: Patient currently intubated at this time. Vent management per pulmonology recommendations. (4) Pneumonia due to COVID-19 virus Current Visit: Yes Status: Acute Plan to address problem: Management per infectious disease recommendations. (5) Anemia Current Visit: Yes Status: Acute Qualifiers: Other causes of anemia: acute posthemorrhagic Plan to address problem: Per GI notes, EGD did not show evidence of active bleeding. Follow up further GI recommendations. Transfuse to maintain Hgb >7.0. 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 I reviewed mult idisciplinary notes and discussed with staff and physicians as needed. Patient remains on vent, sedated. Objective - Exam Narrative Exam: exam deferred d/t PPE preservation - Vital Signs Vital signs: Vital Signs - 12hr 07/22/20 07/22/20 07/22/20 19:45 19:46 19:50 Temperature Pulse Rate 107 H 105 H 108 H Respiratory 23 19 Rate Blood Pressure 116/41 118/68 118/68 O2 Sat by Pulse 97 99 Oximetry O2 Sat by Pulse Oximetry [ Anterior Bilateral Throughout] 07/22/20 07/22/20 07/22/20 19:56 20:00 20:04 Temperature 97.6 F Pulse Rate 100 H 123 H 105 H Respiratory 22 21 Rate Blood Pressure 116/62 116/62 113/59 O2 Sat by Pulse 98 99 98 Oximetry O2 Sat by Pulse Oximetry [ Anterior Bilateral Throughout] 07/22/20 07/22/20 07/22/20 20:06 20:10 20:15 Temperature Pulse Rate 106 H 108 H 111 H Respiratory 28 H 22 Rate Blood Pressure 113/59 108/55 118/59 O2 Sat by Pulse 99 99 Oximetry O2 Sat by Pulse Oximetry [ Anterior Bilateral Throughout] 07/22/20 07/22/20 07/22/20 20:16 20:20 20:26 Temperature Pulse Rate 104 H 109 H 111 H Respiratory 16 24 20 Rate Blood Pressure 108/55 118/59 118/59 O2 Sat by Pulse 99 98 99 Oximetry O2 Sat by Pulse Oximetry [ Anterior Bilateral Throughout] 07/22/20 07/22/20 07/22/20 20:30 20:35 20:36 Temperature Pulse Rate 105 H 116 H 107 H Respiratory 24 25 H 23 Rate Blood Pressure 115/59 115/59 O2 Sat by Pulse 99 99 98 Oximetry O2 Sat by Pulse Oximetry [ Anterior Bilateral Throughout] 07/22/20 07/22/20 07/22/20 20:40 20:45 20:46 Temperature Pulse Rate 116 H 107 H 115 H Respiratory 17 15 Rate Blood Pressure 114/69 114/69 114/69 O2 Sat by Pulse 98 98 Oximetry O2 Sat by Pulse Oximetry [ Anterior Bilateral Throughout] 07/22/20 07/22/20 07/22/20 20:50 20:56 21:00 Temperature Pulse Rate 106 H 102 H 125 H Respiratory 17 18 17 Rate Blood Pressure 96/63 96/63 96/63 O2 Sat by Pulse 98 97 97 Oximetry O2 Sat by Pulse Oximetry [ Anterior Bilateral Throughout] 07/22/20 07/22/20 07/22/20 21:06 21:10 21:15 Temperature Pulse Rate 109 H 106 H 115 H Respiratory 21 17 Rate Blood Pressure 101/55 113/61 101/55 O2 Sat by Pulse 97 99 Oximetry O2 Sat by Pulse Oximetry [ Anterior Bilateral Throughout] 07/22/20 07/22/20 07/22/20 21:16 21:20 21:26 Temperature Pulse Rate 114 H 120 H 100 H Respiratory 22 23 21 Rate Blood Pressure 113/61 115/61 115/61 O2 Sat by Pulse 99 99 99 Oximetry O2 Sat by Pulse Oximetry [ Anterior Bilateral Throughout] 07/22/20 07/22/20 07/22/20 21:30 21:36 21:40 Temperature Pulse Rate 96 H 104 H 115 H Respiratory 24 22 26 H Rate Blood Pressure 121/63 101/55 115/59 O2 Sat by Pulse 100 100 100 Oximetry O2 Sat by Pulse Oximetry [ Anterior Bilateral Throughout] 07/22/20 07/22/20 07/22/20 21:46 21:50 21:56 Temperature Pulse Rate 122 H 101 H 111 H Respiratory 24 16 18 Rate Blood Pressure 115/59 125/53 125/53 O2 Sat by Pulse 99 100 100 Oximetry O2 Sat by Pulse Oximetry [ Anterior Bilateral Throughout] 07/22/20 07/22/20 07/22/20 22:00 22:06 22:10 Temperature 97.6 F Pulse Rate 106 H 107 H 116 H Respiratory 22 18 19 Rate Blood Pressure 115/59 119/62 125/68 O2 Sat by Pulse 99 100 99 Oximetry O2 Sat by Pulse 100 Oximetry [ Anterior Bilateral Throughout] 07/22/20 07/22/20 07/22/20 22:16 22:20 22:26 Temperature Pulse Rate 107 H 103 H 108 H Respiratory 22 22 26 H Rate Blood Pressure 125/68 130/71 130/71 O2 Sat by Pulse 99 99 100 Oximetry O2 Sat by Pulse Oximetry [ Anterior Bilateral Throughout] 07/22/20 07/22/20 07/22/20 22:30 22:36 22:40 Temperature Pulse Rate 109 H 97 H 120 H Respiratory 18 19 20 Rate Blood Pressure 121/65 121/65 106/69 O2 Sat by Pulse 99 100 100 Oximetry O2 Sat by Pulse Oximetry [ Anterior Bilateral Throughout] 07/22/20 07/22/20 07/22/20 22:46 22:50 22:54 Temperature Pulse Rate 110 H 117 H 150 H Respiratory 26 H 23 16 Rate Blood Pressure 106/69 111/66 130/71 O2 Sat by Pulse 99 99 100 Oximetry O2 Sat by Pulse Oximetry [ Anterior Bilateral Throughout] 07/22/20 07/22/20 07/22/20 22:56 23:00 23:02 Temperature Pulse Rate 121 H 109 H 104 H Respiratory 23 28 H 27 H Rate Blood Pressure 111/66 111/66 111/66 O2 Sat by Pulse 97 98 98 Oximetry O2 Sat by Pulse Oximetry [ Anterior Bilateral Throughout] 07/22/20 07/22/20 07/22/20 23:06 23:10 23:16 Temperature Pulse Rate 111 H 113 H 109 H Respiratory 27 H 28 H 27 H Rate Blood Pressure 130/71 124/67 124/67 O2 Sat by Pulse 98 99 100 Oximetry O2 Sat by Pulse Oximetry [ Anterior Bilateral Throughout] 07/22/20 07/22/20 07/22/20 23:20 23:26 23:30 Temperature Pulse Rate 109 H 116 H 118 H Respiratory 19 27 H 19 Rate Blood Pressure 127/74 127/74 128/59 O2 Sat by Pulse 99 99 99 Oximetry O2 Sat by Pulse Oximetry [ Anterior Bilateral Throughout] 07/22/20 07/22/20 07/22/20 23:36 23:38 23:40 Temperature Pulse Rate 105 H 112 H 99 H Respiratory 29 H 26 H 20 Rate Blood Pressure 128/59 128/59 123/61 O2 Sat by Pulse 100 100 99 Oximetry O2 Sat by Pulse Oximetry [ Anterior Bilateral Throughout] 07/22/20 07/22/20 07/22/20 23:46 23:50 23:54 Temperature Pulse Rate 109 H 114 H 105 H Respiratory 20 25 H Rate Blood Pressure 123/61 119/66 119/66 O2 Sat by Pulse 99 99 99 Oximetry O2 Sat by Pulse Oximetry [ Anterior Bilateral Throughout] 07/22/20 07/23/20 07/23/20 23:56 00:00 00:06 Temperature 97.4 F L Pulse Rate 110 H 96 H 109 H Respiratory 26 H 22 27 H Rate Blood Pressure 111/66 122/58 131/59 O2 Sat by Pulse 99 99 99 Oximetry O2 Sat by Pulse Oximetry [ Anterior Bilateral Throughout] 07/23/20 07/23/20 07/23/20 00:10 00:15 00:16 Temperature Pulse Rate 108 H 108 H 104 H Respiratory 25 H 16 Rate Blood Pressure 124/66 124/66 O2 Sat by Pulse 100 100 Oximetry O2 Sat by Pulse Oximetry [ Anterior Bilateral Throughout] 07/23/20 07/23/20 07/23/20 00:20 00:26 00:30 Temperature Pulse Rate 105 H 121 H 114 H Respiratory 25 H 23 29 H Rate Blood Pressure 125/71 125/71 123/73 O2 Sat by Pulse 100 100 100 Oximetry O2 Sat by Pulse Oximetry [ Anterior Bilateral Throughout] 07/23/20 07/23/20 07/23/20 00:35 00:36 00:40 Temperature Pulse Rate 113 H 112 H Respiratory 25 H 24 22 Rate Blood Pressure 123/73 123/75 O2 Sat by Pulse 99 98 99 Oximetry O2 Sat by Pulse Oximetry [ Anterior Bilateral Throughout] 07/23/20 07/23/20 07/23/20 00:46 00:50 00:56 Temperature Pulse Rate 101 H 100 H 111 H Respiratory 21 22 26 H Rate Blood Pressure 123/75 113/58 113/58 O2 Sat by Pulse 98 99 98 Oximetry O2 Sat by Pulse Oximetry [ Anterior Bilateral Throughout] 07/23/20 07/23/20 07/23/20 01:00 01:06 01:10 Temperature Pulse Rate 114 H 115 H 101 H Respiratory 20 19 16 Rate Blood Pressure 116/63 116/63 116/57 O2 Sat by Pulse 99 98 98 Oximetry O2 Sat by Pulse Oximetry [ Anterior Bilateral Throughout] 07/23/20 07/23/20 07/23/20 01:16 01:20 01:26 Temperature Pulse Rate 97 H 98 H 116 H Respiratory 21 24 15 Rate Blood Pressure 116/57 118/61 118/61 O2 Sat by Pulse 99 99 98 Oximetry O2 Sat by Pulse Oximetry [ Anterior Bilateral Throughout] 07/23/20 07/23/20 07/23/20 01:30 01:36 01:40 Temperature Pulse Rate 108 H 111 H 114 H Respiratory 17 17 17 Rate Blood Pressure 99/58 99/58 93/54 O2 Sat by Pulse 98 98 98 Oximetry O2 Sat by Pulse Oximetry [ Anterior Bilateral Throughout] 07/23/20 07/23/20 07/23/20 01:46 01:50 01:52 Temperature Pulse Rate 103 H 107 H Respiratory 17 16 25 H Rate Blood Pressure 93/54 89/47 O2 Sat by Pulse 99 98 99 Oximetry O2 Sat by Pulse Oximetry [ Anterior Bilateral Throughout] 07/23/20 07/23/20 07/23/20 01:56 02:00 02:06 Temperature Pulse Rate 97 H 101 H 101 H Respiratory 19 18 21 Rate Blood Pressure 89/47 105/52 105/52 O2 Sat by Pulse 99 99 99 Oximetry O2 Sat by Pulse Oximetry [ Anterior Bilateral Throughout] 07/23/20 07/23/20 07/23/20 02:10 02:16 02:20 Temperature Pulse Rate 102 H 93 H 89 Respiratory 19 20 16 Rate Blood Pressure 106/56 106/56 110/58 O2 Sat by Pulse 99 99 99 Oximetry O2 Sat by Pulse Oximetry [ Anterior Bilateral Throughout] 07/23/20 07/23/20 07/23/20 02:26 02:30 02:36 Temperature Pulse Rate 102 H 101 H 97 H Respiratory 13 14 20 Rate Blood Pressure 110/58 110/63 110/63 O2 Sat by Pulse 100 100 100 Oximetry O2 Sat by Pulse Oximetry [ Anterior Bilateral Throughout] 07/23/20 07/23/20 07/23/20 02:40 02:46 02:50 Temperature Pulse Rate 95 H 99 H 103 H Respiratory 18 17 14 Rate Blood Pressure 108/61 108/61 108/61 O2 Sat by Pulse 100 100 99 Oximetry O2 Sat by Pulse Oximetry [ Anterior Bilateral Throughout] 07/23/20 07/23/20 07/23/20 02:56 03:00 03:06 Temperature Pulse Rate 99 H 96 H 124 H Respiratory 13 22 14 Rate Blood Pressure 96/66 96/66 132/68 O2 Sat by Pulse 100 100 100 Oximetry O2 Sat by Pulse Oximetry [ Anterior Bilateral Throughout] 07/23/20 07/23/20 07/23/20 03:10 03:16 03:20 Temperature Pulse Rate 100 H 109 H 108 H Respiratory 25 H 23 17 Rate Blood Pressure 129/70 129/70 128/65 O2 Sat by Pulse 100 100 100 Oximetry O2 Sat by Pulse Oximetry [ Anterior Bilateral Throughout] 07/23/20 07/23/20 07/23/20 03:26 03:30 03:36 Temperature Pulse Rate 107 H 109 H 116 H Respiratory 14 24 21 Rate Blood Pressure 128/65 128/65 147/75 O2 Sat by Pulse 100 100 98 Oximetry O2 Sat by Pulse Oximetry [ Anterior Bilateral Throughout] 07/23/20 07/23/20 07/23/20 03:40 03:46 03:50 Temperature Pulse Rate 129 H 110 H 135 H Respiratory 20 14 27 H Rate Blood Pressure 147/75 147/75 147/75 O2 Sat by Pulse 100 97 Oximetry O2 Sat by Pulse Oximetry [ Anterior Bilateral Throughout] 07/23/20 07/23/20 07/23/20 03:55 04:00 04:06 Temperature 97.6 F Pulse Rate 104 H 123 H 113 H Respiratory 21 24 13 Rate Blood Pressure 129/64 120/69 120/69 O2 Sat by Pulse 97 97 97 Oximetry O2 Sat by Pulse Oximetry [ Anterior Bilateral Throughout] 07/23/20 07/23/20 07/23/20 04:10 04:16 04:17 Temperature Pulse Rate 118 H 111 H 123 H Respiratory 25 H 29 H 25 H Rate Blood Pressure 126/62 126/62 O2 Sat by Pulse 97 98 99 Oximetry O2 Sat by Pulse Oximetry [ Anterior Bilateral Throughout] 07/23/20 07/23/20 07/23/20 04:20 04:26 04:30 Temperature Pulse Rate 108 H 110 H 109 H Respiratory 20 12 15 Rate Blood Pressure 132/61 132/61 131/70 O2 Sat by Pulse 98 98 98 Oximetry O2 Sat by Pulse Oximetry [ Anterior Bilateral Throughout] 07/23/20 07/23/20 07/23/20 04:36 04:40 04:46 Temperature Pulse Rate 102 H 101 H 104 H Respiratory 21 12 16 Rate Blood Pressure 131/70 134/69 134/69 O2 Sat by Pulse 98 98 98 Oximetry O2 Sat by Pulse Oximetry [ Anterior Bilateral Throughout] 07/23/20 07/23/20 07/23/20 04:50 04:56 04:57 Temperature Pulse Rate 104 H 105 H 102 H Respiratory 17 18 Rate Blood Pressure 134/69 125/68 125/68 O2 Sat by Pulse 99 98 98 Oximetry O2 Sat by Pulse Oximetry [ Anterior Bilateral Throughout] 07/23/20 07/23/20 07/23/20 05:00 05:06 05:10 Temperature Pulse Rate 113 H 114 H 107 H Respiratory 19 23 21 Rate Blood Pressure 124/71 124/71 123/64 O2 Sat by Pulse 98 98 99 Oximetry O2 Sat by Pulse Oximetry [ Anterior Bilateral Throughout] 07/23/20 07/23/20 07/23/20 05:16 05:20 05:26 Temperature Pulse Rate 110 H 114 H 116 H Respiratory 24 16 18 Rate Blood Pressure 123/64 131/70 131/70 O2 Sat by Pulse 99 99 99 Oximetry O2 Sat by Pulse Oximetry [ Anterior Bilateral Throughout] 07/23/20 07/23/20 07/23/20 05:30 05:36 05:40 Temperature Pulse Rate 112 H 107 H 117 H Respiratory 16 15 16 Rate Blood Pressure 115/66 115/66 126/65 O2 Sat by Pulse 99 99 99 Oximetry O2 Sat by Pulse Oximetry [ Anterior Bilateral Throughout] 07/23/20 05:46 Temperature Pulse Rate 125 H Respiratory 13 Rate Blood Pressure 126/65 O2 Sat by Pulse 99 Oximetry O2 Sat by Pulse Oximetry [ Anterior Bilateral Throughout] - Lab 07/22/20 16:00 07/23/20 Unknown Most recent lab results ABG pH 7.355 (7.320-7.450) 07/23/20 04:56 ABG pCO2 56.4 mm Hg 07/05/20 04:30 ABG pO2 151.9 mm Hg (80.0-90.0) H 07/05/20 04:30 ABG HCO3 26.8 mmol/L (20.0-26.0) H 07/05/20 04:30 ABG O2 Saturation 94.8 (0-100) 07/23/20 04:56 Calcium 9.3 mg/dL (8.4-10.2) D 07/23/20 Unknown Phosphorus 9.40 mg/dL (2.5-4.5) H 06/30/20 03:50 Magnesium 2.70 mg/dL (1.7-2.3) H 06/18/20 20:33 Urine Creatinine 192.4 mg/dL (0.1-20.0) H 06/18/20 15:00 Urine Sodium 28 mmol/L 06/18/20 15:00 Medications & Allergies - Medications Allergies/Adverse Reactions: Allergies No Known Allergies Allergy (Unverified 06/17/20 14:24) Home Medications: Home Medications Medication Instructions Recorded Confirmed Last Taken Type Losartan/Hydrochlorothiazide 1 each PO QDAY 06/19/20 06/19/20 Unknown History [Losartan-Hctz 100-25 mg Tab] amLODIPine [Norvasc] 5 mg PO DAILY 06/19/20 06/19/20 Unknown History Active Medications: Generic Name Dose Route Start Last Admin Trade Name Freq PRN Reason Stop Dose Admin Acetaminophen 650 mg 06/17/20 14:17 07/03/20 09:16 Acetaminophen 325 Mg Tab PO 650 mg Q4H PRN Administration Pain MILD(1-3)/Fever >100.5/ROBERTS Albuterol 2.5 mg 07/19/20 12:15 Albuterol 2.5 Mg/3 Ml Nebu IH Q6HRT PRN Shortness Of Breath Amiodarone HCl 200 mg 07/19/20 14:00 07/22/20 21:00 Amiodarone 200 Mg Tab PO Not Given BID CONNOR Lipase/Protease/Amylase 1 each 06/19/20 12:15 Lipase 10,500/Protease 25,000/Amylase 43,750 (Units) Dr Cap FEEDTUBE PRN PRN For Clogged Feeding Tube Ascorbic Acid 250 mg 06/17/20 22:00 07/22/20 21:00 Ascorbic Acid 250 Mg Tab PO Not Given BID [facility]NOR Cholecalciferol 1,000 unit 06/18/20 10:00 07/22/20 09:13 Cholecalciferol (Vit D3) 1000 Unit (25 Mcg) Tab PO 1,000 unit DAILY [facility] Administration Docusate Sodium 100 mg 06/23/20 15:00 07/22/20 21:00 Docusate Sodium 100 Mg/10 Ml Oral Liqd FEEDTUBE Not Given BID [facility] Fentanyl 50 mcg 06/18/20 01:02 07/09/20 00:20 Fentanyl 100 Mcg/2 Ml Inj IV 50 mcg Q10MIN PRN Administration ANALGESIA Heparin Sodium (Porcine) 5,000 unit 06/22/20 12:53 06/30/20 13:36 Heparin 10,000 Unit/1 Ml Vial IV 5,000 unit PAM PRN Administration hemodialysis Hydrophilic Ointment 1 applic 06/17/20 22:52 07/12/20 20:22 Lip Therapy Vaseline TP 1 applic Q2HR PRN Administration Dry Lips Propofol 1,000 mg in 100 mls @ 3.402 mls/hr 06/18/20 01:00 07/23/20 00:25 Diprivan 10 Mg/Ml IV 10 mcg/kg/min TITR [facility]NOR 6.804 mls/hr Administration Protocol 5 MCG/KG/MIN Fentanyl Citrate 2,000 mcg in 100 mls @ 8 mls/hr 06/18/20 02:00 07/23/20 01:52 Fentanyl Drip Premix IV 1 mcg/kg/hr TITR [facility] 8 mls/hr Titration Protocol 1 MCG/KG/HR Norepinephrine 4 mg in 250 mls @ 7.5 mls/hr 07/08/20 02:06 07/23/20 01:58 Levophed Drip 4 Mg/Ns 250 Ml IV 12 mcg/min TITR [facility] 45 mls/hr Titration Protocol 2 MCG/MIN Vasopressin 20 unit/ Sodium 101 mls @ 9.09 mls/hr 07/11/20 11:00 07/18/20 15:36 Chloride IV 0 units/min TITR [facility] 0 mls/hr Titration Protocol 0.03 UNITS/MIN Sodium Chloride 100 mls @ 999 mls/hr 07/19/20 08:22 Nacl 0.9% IV PAM PRN Hypotension Ampicillin Sodium 2 gm in 100 mls @ 100 mls/hr 07/21/20 12:00 07/23/20 00:26 Ampicillin/Ns 2 Gm/100 Ml IV 08/02/20 12:59 100 mls/hr Q12H [facility] Administration Protocol Insulin Human Regular 0 units 06/18/20 12:00 07/23/20 05:51 Insulin Regular, Human 100 Units/1 Ml SUB-Q Not Given Q6HR [facility] Protocol Multi-Ingred Cream/Lotion/Oil/Oint 1 applic 06/17/20 22:52 07/12/20 20:22 Mineral Oil/Petrolatum, White Ophth Oint 3.5 Gm OU 1 applic Q4HR PRN Administration Dry Eye(s) Ondansetron HCl 4 mg 06/17/20 14:17 Ondansetron 4 Mg/2 Ml Inj IV Q8H PRN Nausea And Vomiting Pantoprazole Sodium 40 mg 07/16/20 22:00 07/22/20 22:50 Pantoprazole 40 Mg Inj IV 40 mg BID CONNOR Administration Polyethylene Glycol 17 gm 06/23/20 15:00 07/22/20 09:12 Polyethylene Glycol 3350 17 Gm Powder PO 17 gm QDAY [facility] Administration Quetiapine Fumarate 200 mg 06/28/20 13:00 07/22/20 21:00 Quetiapine 200 Mg Tab PO Not Given BID CONNOR Simple Syrup 15 ml 06/19/20 12:15 07/19/20 00:48 Simple Syrup 15 Ml FEEDTUBE 15 ml PRN PRN Administration Hypoglycemia Simple Syrup 30 ml 06/19/20 12:15 07/19/20 06:04 Simple Syrup 15 Ml FEEDTUBE 30 ml PRN PRN Administration Hypoglycemia Sodium Bicarbonate 325 mg 06/19/20 12:15 07/11/20 20:00 Sodium Bicarbonate 325 Mg Tab FEEDTUBE 325 mg PRN PRN Administration For Clogged Feeding Tube Sodium Bicarbonate 650 mg 07/04/20 10:00 07/22/20 20:00 Sodium Bicarbonate 650 Mg Tab PO Not Given TID [facility] Sodium Chloride 10 ml 06/17/20 22:00 07/22/20 22:50 Sodium Chloride 0.9% 10 Ml Flush Syringe IV 10 ml BID [facility] Administration Sodium Chloride 10 ml 06/17/20 14:17 Sodium Chloride 0.9% 10 Ml Flush Syringe IV PRN PRN LINE FLUSH Sodium Hypochlorite 1 applic 07/20/20 10:00 07/22/20 21:00 Sodium Hypochlorite, Dakin's 1/2 Strength (0.25%) 473 Ml Topical Soln TP Not Given BID [facility] Sodium Polystyrene Sulfonate 15 gm 07/03/20 11:19 07/05/20 10:36 Sodium Polystyrene 15 Gm/60 Ml Oral Liqd PO 15 gm Q6HR PRN Administration Hyperkalemia Zinc Sulfate 220 mg 06/17/20 22:00 07/22/20 21:00 Zinc Sulfate 220 Mg Cap PO Not Given BID [facility]
[2020-07-23] MEDS: SODIUM BICARBONATE 650 MG TAB PO SCH ×3 (08:35→19:43)
[2020-07-23] MEDS: fentaNYL DRIP Premix 2,000 MCG/100 ML BAG IV SCH ×2 (08:37→22:11)
[2020-07-23] MEDS: SODIUM HYPOCHLORITE, DAKIN'S 1/2 STRENGTH (0.25%) 473 ML TOPICAL SOLN TP SCH (10:10)
[2020-07-23] MEDS: PANTOPRAZOLE 40 MG INJ IV SCH ×2 (10:10→22:11)
[2020-07-23] MEDS: DOCUSATE SODIUM 100 MG/10 ML ORAL LIQD FEEDTUBE SCH ×2 (10:10→21:56)
[2020-07-23] MEDS: QUEtiapine 200 MG TAB PO SCH ×2 (10:11→22:10)
[2020-07-23] MEDS: ASCORBIC ACID 250 MG TAB PO SCH ×2 (10:11→22:11)
[2020-07-23] MEDS: POLYETHYLENE GLYCOL 3350 17 GM POWDER PO SCH (10:11)
[2020-07-23] MEDS: AMIODARONE 200 MG TAB PO SCH ×2 (10:11→22:11)
[2020-07-23] MEDS: CHOLECALCIFEROL (VIT D3) 1000 UNIT (25 mcg) TAB PO SCH (10:11)
[2020-07-23] MEDS: ZINC SULFATE 220 MG CAP PO SCH ×2 (10:11→22:10)
--- NOTE | 2020-07-23 11:43 | Progress Note ---
Assessment and Plan Cultures: SARS CoV2 PCR: Positive 06/17/2020 blood culture: No growth 06/17/2020 sputum culture: No growth 07/15/2020 blood culture: No growth 07/15/2020 fungal blood culture: Enterococcus faecalis 07/15/2020 tracheal aspirate culture: Usual respiratory otf 07/18/2020 blood culture: no growth A/P: 59-year-old male with obesity, obesity hypoventilation syndrome: #Severe sepsis with septic shock, ?also component of hemorrhagic shock. On and off pressors. #Enterococcus bacteremia: 07/15/2020 fungal blood culture: grew Enterococcus. ?gut translocation. Interestingly other blood cultures from that day were negative. CT abdomen showed some colitis. Since repeat blood cultures negative, will finish 14 days of abx. #Anemia, GI bleed: GI on board. #Critical COVID-19 pneumonia: s/p abx, steroids and remdesivir. #Acute hypoxic respiratory failure: on the vent. Also with pneumomediastinum, subcutaneous emphysema. #Leukemoid reaction: likely multifactorial. #GIRISH: remains on HD per nephrology. Renally dose abx. #Sacral decubitus: s/p debridement by Dr. Kirk on 07/20/2020. Recs: -continue IV Ampicillin, renally dosed, complete 14 days ending 08/01/2020 -repeat blood cultures have been negative, however, if pressor requirements persist or worsen, exchange out lines -monitor fever and WBC -overall, very poor prognosis Tj Fajardo MD, FACP [facility] O: [phone] F: [phone] Subjective Date of service: 07/23/20 Principal diagnosis: ARF; Septic Shock; COVID-19 PNA; Atrial fibrillation; Obesity Interval history: Afebrile. Remains on the vent. On and off pressors. Objective - Exam Narrative Exam: Physical Exam: Constitutional: sedated, intubated, on the vent Head, Ears, Nose: Normocephalic, atraumatic. External ears, nose normal Eyes: Conjunctivae/corneas clear. No icterus. No ptosis. Neck: intubated Oral: intubated Cardiovascular: S1, S2 + Respiratory: AE fair bilaterally and equal GI: Soft, bowel sounds + Musculoskeletal: No pedal edema, no cyanosis. Skin: No rash or abscess Hem/Lymphatic: No palpable cervical or supraclavicular nodes. No lymphangitis Psych: no agitation Neurological: sedated, intubated, on the vent, exam limited - Constitutional Vitals: Vital Signs Temp Pulse Resp BP Pulse Ox 98.4 F 128 H 25 H 129/64 92 07/23/20 08:00 07/23/20 10:55 07/23/20 10:55 07/23/20 10:55 07/23/20 10:55 Temperature -Last 24 Hours Temperature 98.4 F Temperature 98.4 F Temperature 97.6 F Temperature 97.4 F Temperature 97.6 F Temperature 97.6 F Temperature 97.4 F Temperature 97.1 F - Labs CBC & Chem 7: 07/22/20 16:00 07/23/20 Unknown Labs: Abnormal lab results 07/22/20 07/22/20 07/23/20 Range/Units 16:00 16:00 04:56 WBC 38.7 H (4.5-11.0) K/mm3 RBC 2.72 L (3.65-5.03) M/mm3 Hgb 8.1 L (11.8-15.2) gm/dl Hct 24.5 L (35.5-45.6) % RDW 16.1 H (13.2-15.2) % POC ABG pO2 75.7 L (83-108) mmHg ABG Hemoglobin 9.3 L (12.0-17.5) ABG Potassium 3.1 L (3.40-4.50) mmol/L ABG Chloride 108.0 H (98-107) mmol/L ABG Glucose 101 H (65-95) mg/dL Potassium (3.6-5.0) mmol/L BUN (9-20) mg/dL Creatinine (0.8-1.3) mg/dL Glucose (75-100) mg/dL Triglycerides 197 H (2-149) mg/dL Arterial Blood Glucose 101 H (65-95) mg/dL 07/23/20 Range/Units Unknown WBC (4.5-11.0) K/mm3 RBC (3.65-5.03) M/mm3 Hgb (11.8-15.2) gm/dl Hct (35.5-45.6) % RDW (13.2-15.2) % POC ABG pO2 (83-108) mmHg ABG Hemoglobin (12.0-17.5) ABG Potassium (3.40-4.50) mmol/L ABG Chloride (98-107) mmol/L ABG Glucose (65-95) mg/dL Potassium 3.1 L D (3.6-5.0) mmol/L BUN 36 H (9-20) mg/dL Creatinine 2.1 H (0.8-1.3) mg/dL Glucose 103 H (75-100) mg/dL Triglycerides (2-149) mg/dL Arterial Blood Glucose (65-95) mg/dL
--- NOTE | 2020-07-23 14:30 | Progress Note ---
Assessment and Plan Assessment and plan: -S/p vasopressor support (CCM and ID consulted, appreciate recommendations) -S/p dexamethasone and remdesivir therapy, contact/droplet isolation, vitamin C/vitamin D/zinc, anticoagulation per protocol, trend inflammatory markers -Wean mechanical ventilation as tolerated, VAP bundle -HD per nephrology -Transfuse for hemaglobin less than 7, s/p 9 units PRBC during stay -Nephrology, ID, heme-onc, GI , cardiology consulted,appreciate recommendations -BCR-ABL mutation testing pending -Per infectious disease: Unless repeat blood cultures turn positive is no need to exchange/remove lines which were placed with positive blood cultures -On antibiotics -Remains on levophed -Monitor leukocytosis and fevers -Hold systemic anticoagulation in setting of severe anemia -Amiodarone for rate control -s/p debridement by Dr. Kirk, WOCN consulted, WC per nursing -07/22 COVID-19 PCR negative, discontinued contact/droplet isolation DVT prophylaxis: GI prophylaxis, heparin subcu, SCDs to bilateral LE while in bed Disposition: ICU, ?placement ?trach/peg ?Ltach The high probability of a clinically significant, sudden or life threatening deterioration of the [multi] system(s) required my full and direct attention, intervention and personal management. The aggregate critical care time was [35] minutes. This time is in addition to time spent performing reported procedures but includes the following: [x] Data Review and interpretation [x] Patient assessment and monitoring of vital signs [x] Documentation [x] Medication orders and management History Interval history: 59-year-old white male who was admitted for pneumonia secondary to Covid with associated respiratory failure and sepsis. Severe septic shock COVID-19 pneumonia Sacral wound, stage 4 Acute metabolic encephalopathy Acute hypoxic respiratory failure Enterococcus bacteremia Pneumomediastinum Acute kidney injury likely secondary to acute tubular necrosis which progressed to hemodialysis SVT/proximal atrial fibrillation Elevated LFTs Anemia likely due to severe sepsis had declining renal function Morbid obesity Leukocytosis Hyperkalemia Hypocalcemia Hypoalbuminemia 06/18: Patient got intubated overnight. Patient was placed on BiPAP to maintain oxygenation with 100% FiO2 but apparently he found to take off his argueta which made his oxygen saturation go down at 60s/50s and patient was found altered mental status. Code met was called immediately. Patient was transferred to ICU and intubated, patient currently on 2 pressors, intubated with 100% FiO2, renal function noted to be decline, nephrology consulted. Discussed with [place] physician Dr. Thompson and requested call back on Saturday. Poor prognosis, continue to monitor with aggressive supportive care. Also called family/ to update clinical status. 06/19: Repeat COVID test was positive. cont cefepime, remdesivir per ID recommendation. follow inflammatory markers, cbc, bmp. placed on heparin drip for atrial fib 06/20: Remains on mechanical ventilation, on 2 pressors, on heparin drip. discusse d with and daughter by phone. Renal function declining. cont supportive care for now. 06/21: Renal function cont to decline, urine outpt sig decreased. started on lasix 80mg BID, plan to follow urine output, if no improvement patient need to start on HD. called and daughter today. updated all clinical details 06/22: Renal function continues to decline with uremia and hyperkalemia. Will n eed to proceed with hemodialysis. Nephrology discussed with the family and they agrees for the hemodialysis. Patient remains on pressor support and mechanical ventilation. Vas-Cath placed today by vascular started on hemodialysis today. 06/23: 2nd round of HD today, remains on 2 pressors. per RN not tolerating TF, has no record of BM since 06/18. start on stool softner. follow cbc/bmp. updated family ( and daughter) by phone -all question answered to best of my knowledge and to their satisfaction. Patient remains critically ill with a very poor prognosis. 06/24: Continue supportive care, Very poor prognosis, Radio Engineer to discuss with family in am due to the futility of the condition. 06/25/2020 continue supportive care very poor prognosis 06/26/2020 continue supportive care very poor prognosis family updated 06/27/2020 continue supportive care and weaning if possible 06/28/2020 continue supportive care, talk with at length 06/29: Resumed care. K level persistently high. give one dose of bicarbonate, plan for HD today, recheck k after HD. updated family by phone 06/30: updated family by phone. Patient remains on amiodarone drip and vasopressin. Getting HD at the bedside. Tolerating tube feeding at low rate. 07/01: Hb dropped to 6.4 today, transfuse one unit PRBC. patient is off pressor today, remains on amioderone. cont to monitor 07/02: Called patient and updated clinical details. Patient remains critically ill, still intubated. Patient's oxygen requirement and PEEP pressure has went down. Continue weaning protocol per critical care recommendation. Patient remains off pressor. Continue to wean off from amiodarone and plan to rate control with p.o. medications. Tolerating tube feeding. H&H stable today. Order for stool for occult blood. Monitor H&H and BMP. Continue to follow clinically 07/03: discussed with [facility] physician today. Patient back on 100percent Fio2 since last night. planned for emergent Hd today. spiked fever, start IV Cefepime + Vancomycin renally dosed. Restarted Levophed today, remains on amiodarone drip. Patient family was updated by critical care attending today. 07/04: Patient has hemodialysis yesterday and also plan for today for volume overload and pulmonary edema. Patient currently on 80% FiO2. Remains on Levophed and amiodarone. Hemoglobin dropped to 6.7 without any evidence of act matthew bleeding. LFTs remain stable. Repeat Covid test on 06/30 and 07/03 remains positive. Will transfuse another unit of packed RBC today. Called family for update -explained family that patient is critically ill with very poor prognosis. 07/05: Patient on 70% FiO2 with PEEP of 14. h/h stable after transfusion. hyperkalemia improved, cont sodiumbicarbonate pill with TF. follow BMP. off levophed today, remains on amioderone. poor prognosis. 07/06: Patient remains on amiodarone drip, maintaining BP without any pressor. FiO2 requirement trended down to 60% with PEEP of 14. Continue to follow c linically. Plan to wean off amiodarone drip as tolerated. Wean off from sedation as tolerated. Updated family. Patient remains critically ill with poor prognosis. 07/07: Called family for update. Off amiodarone drip today, patient also off pressor. FiO2 requirement trended up again to 80-100%. Continue to provide supportive care, monitor clinically. Having difficulty to wean off from the ve nt support. Patient is persistently positive for COVID-19 and COVID-19 antibody is nonreactive. Patient remains critically ill with very poor prognosis. 07/08: Continue supportive care. 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 Prognosis remains guarded to poor. Management per team. Critical care time 35-minute 07/09/20 patient is tachycardic. Heart rate 121. Hemoglobin 7.3. Patient is having hemodialysis. Continue supportive care. Patient having difficulty to wean off from the vent support. Prognosis is poor. Nephrology and cardiology follow-up. Recheck CBC BMP in the morning. Continue current management. 07/10/20 patient seen and examined, remains on full ventilator patient is doing better. Patient is off pressor. heart rate 123. Hemoglobin 6.8 and hematocrit 20.7. WBC is 18.1. Continue supportive care. Patient having difficulty to wean off from the vent support. We will started on Zosyn 4.5 g IV every 8 hours. Will transfuse 1 unit of packed red blood cell. Prognosis is poor. Nephrology and cardiology follow up. Recheck CBC BMP in the morning 07/11: remains off vasopressor, h/h appropriately responded to 1 unit PRBC. HD today. Remain on MV with fiO2 at 70%. peep 10. No acute events reported overnight. 32: Patient remains in atrial fibrillation on the science teacher, vasopressor support with Levophed and vasopressin, sedated with fentanyl and propofol. Vent settings: CMV 500/25/14/0.60. Patient remains hypercarbic on ABG 07/13: Patient remains on vasopressin, fentanyl and propofol with rectal tube in place. This morning some examination patient was on assist control 25/500/14/0.60. Patient received hemodialysis today. No acute events reported overnight. 07/14: Remains on vasopressin, fentanyl and propofol with tube in place. Rectal tube in place with noted blood clots, GI consulted, on 07/13 H/H dropped from 8.7/27 to 7.4/22 and anticoagulation discontinued. This morning I spoke to his who still wishes for the patient to remain a full code despite update with continued use of vasopressor (vasopressin), current ventilatory support (CMV 500/25/14/0.60) and recent development of rectal bleeding. Patient's family requests an update from [facility] and GI. Cardio changed amio from PO to IV given elevated HR 07/15: Today the patient received a total of 5 units of PRBC and is still having bleeding through his rectal tube. CTA abdomen/pelvis is pending, patient remains on Levophed, fentanyl, propofol, vasopressin and received hemodialysis today. He was also hyperkalemic today to 6 and he received insulin and D50. Extensive conversation with family conducted by CCM and hospitalist and his and 2 daughters did visit him today at the bedside. 07/16: Continues with full ventilatory support. FMS still inplace with some loose bloody stool. Still on multiple pressors, Bilateral swollen and generalized anascara. Monitor H/H and transfuse as needed. Monitor K level. Discussed with family at bedside yesterday. 07/17: Continue supportive care, transfusion blood possible in am with HD, continue abx, very poor prognosis, blood pressure still labile. Discussed with nurse at bedside 07/18: CTA abdomen/pelvis completed, antibiotics changed to Zosyn per infectious disease, remains on mechanical ventilation 450/25/12/0.55 continue amiodarone drip for 24 more hours, blood culture grew Enterococcus. Remains sedated on propofol and fentanyl. Not on vasopressor support today 07/19: No acute events reported overnight, remains sedated with fentanyl and propofol and off vasopressor therapy today. 07/20: s/p debridement with surgery today, remains on fentanyl, propofol, Levophed and current vent settings 450/25/10/0.45. Patient will be transferred to a bariatric bed once available. 07/21: Continue current management, wean ventilator as tolerated, IV antibiotics deescalated to ampicillin. Per infectious disease no need to exchange/remove lines unless repeat blood cultures turn positive. The time my examination patient was sedated on fentanyl and propofol and remains off vasopressor support. 07/22: At the time my examination patient is sedated on fentanyl and propofol and remains off vasopressor support, repeat COVID-19 PCR negative. Patient remains on ampicillin. H/H remained stable and GI has signed off. Mechanical ventilation weaning as tolerated. Hospitalist Physical - Physical exam Narrative exam: VITAL SIGNS: Reviewed. GENERAL: Intubated HEAD: No signs of head trauma. MOUTH: Oropharynx is normal. NECK: No adenopathy, no JVD. CHEST: Chest with diminished breath sounds bilaterally. No wheezes, rales, or rhonchi. CARDIAC: normal S1 and S2, without murmurs, gallops, or rubs. ABDOMEN: Soft, non tender and non distended. No rebound or guarding, and no masses palpated. Bowel Sounds normal. MUSCULOSKELETAL: No edema NEUROLOGIC EXAM: Intubated SKIN: No obvious lesions - Constitutional Vitals: Temp Pulse Resp BP Pulse Ox 98.7 F 128 H 36 H 111/58 89 07/23/20 12:00 07/23/20 12:05 07/23/20 12:05 07/23/20 12:05 07/23/20 12:05 HEART Score - HEART Score Troponin: Troponin T < 0.010 ng/mL (0.00-0.029) 06/17/20 12:33 Results - Labs CBC & Chem 7: 07/24/20 06:40 07/24/20 06:40 Labs: Laboratory Last Values WBC 38.7 K/mm3 (4.5-11.0) H 07/22/20 16:00 RBC 2.72 M/mm3 (3.65-5.03) L 07/22/20 16:00 Hgb 8.1 gm/dl (11.8-15.2) L 07/22/20 16:00 Hct 24.5 % (35.5-45.6) L 07/22/20 16:00 MCV 90 fl (84-94) 07/22/20 16:00 MCH 30 pg (28-32) 07/22/20 16:00 MCHC 33 % (32-34) 07/22/20 16:00 RDW 16.1 % (13.2-15.2) H 07/22/20 16:00 Plt Count 200 K/mm3 (140-440) D 07/22/20 16:00 Lymph % (Auto) 5.6 % (13.4-35.0) L 07/12/20 03:40 Mcleod % (Auto) 7.4 % (0.0-7.3) H 07/12/20 03:40 Eos % (Auto) 2.8 % (0.0-4.3) 07/12/20 03:40 Baso % (Auto) 0.3 % (0.0-1.8) 07/12/20 03:40 Lymph # (Auto) 1.4 K/mm3 (1.2-5.4) 07/12/20 03:40 Mcleod # (Auto) 1.8 K/mm3 (0.0-0.8) H 07/12/20 03:40 Eos # (Auto) 0.7 K/mm3 (0.0-0.4) H 07/12/20 03:40 Baso # (Auto) 0.1 K/mm3 (0.0-0.1) 07/12/20 03:40 Add Manual Diff Complete 07/17/20 15:25 Total Counted 100 07/17/20 15:25 Seg Neutrophils % Graphics Production Specialist 07/17/20 15:25 Seg Neuts % (Manual) 87.0 % (40.0-70.0) H 07/17/20 15:25 Band Neutrophils % 2 % 07/17/20 15:25 Lymphocytes % (Manual) 3.0 % (13.4-35.0) L 07/17/20 15:25 Reactive Lymphs % (Man) 1.0 % 06/23/20 04:00 Monocytes % (Manual) 7.0 % (0.0-7.3) 07/17/20 15:25 Eosinophils % (Manual) 4.0 % (0.0-4.3) 07/11/20 06:52 Metamyelocytes % 1 % 07/17/20 15:25 Myelocytes % 0 % 07/17/20 15:25 Promyelocytes % 0 % 07/17/20 15:25 Nucleated RBC % Not Reportable 07/17/20 15:25 Seg Neutrophils # 20.4 K/mm3 (1.8-7.7) H 07/12/20 03:40 Seg Neutrophils # Man 40.2 K/mm3 (1.8-7.7) H 07/17/20 15:25 Band Neutrophils # 0.9 K/mm3 07/17/20 15:25 Lymphocytes # (Manual) 1.4 K/mm3 (1.2-5.4) 07/17/20 15:25 Abs React Lymphs (Man) 0.0 K/mm3 07/17/20 15:25 Monocytes # (Manual) 3.2 K/mm3 (0.0-0.8) H 07/17/20 15:25 Eosinophils # (Manual) 0.0 K/mm3 (0.0-0.4) 07/17/20 15:25 Basophils # (Manual) 0.0 K/mm3 (0.0-0.1) 07/17/20 15:25 Metamyelocytes # 0.5 K/mm3 07/17/20 15:25 Myelocytes # 0.0 K/mm3 07/17/20 15:25 Promyelocytes # 0.0 K/mm3 07/17/20 15:25 Blast Cells # 0.0 K/mm3 07/17/20 15:25 Pathologist Review 07/17/20 15:25 WBC Morphology Not Reportable 07/17/20 15:25 Hypersegmented Neuts Not Reportable 07/17/20 15:25 Hyposegmented Neuts Not Reportable 07/17/20 15:25 Hypogranular Neuts Not Reportable 07/17/20 15:25 Smudge Cells Not Reportable 07/17/20 15:25 Toxic Granulation Not Reportable 07/17/20 15:25 Toxic Vacuolation Not Reportable 07/17/20 15:25 Dohle Bodies Not Reportable 07/17/20 15:25 Pelger-Huet Anomaly Not Reportable 07/17/20 15:25 Carlito Rods Not Reportable 07/17/20 15:25 Platelet Estimate Not Reportable 07/17/20 15:25 Clumped Platelets Not Reportable 07/17/20 15:25 Plt Clumps, EDTA Not Reportable 07/17/20 15:25 Large Platelets Not Reportable 07/17/20 15:25 Giant Platelets Not Reportable 07/17/20 15:25 Platelet Satelliting Not Reportable 07/17/20 15:25 Plt Morphology Comment Not Reportable 07/17/20 15:25 RBC Morphology Not Reportable 07/17/20 15:25 Dimorphic RBCs Not Reportable 07/17/20 15:25 Polychromasia Not Reportable 07/17/20 15:25 Hypochromasia Not Reportable 07/17/20 15:25 Poikilocytosis Not Reportable 07/17/20 15:25 Anisocytosis Rare 07/17/20 15:25 Microcytosis Rare 07/17/20 15:25 Macrocytosis Not Reportable 07/17/20 15:25 Spherocytes Not Reportable 07/17/20 15:25 Pappenheimer Bodies Not Reportable 07/17/20 15:25 Sickle Cells Not Reportable 07/17/20 15:25 Target Cells Not Reportable 07/17/20 15:25 Tear Drop Cells Not Reportable 07/17/20 15:25 Ovalocytes Not Reportable 07/17/20 15:25 Stomatocytes Rare 07/10/20 03:55 Helmet Cells Not Reportable 07/17/20 15:25 [place] Bodies Not Reportable 07/17/20 15:25 [place] Rings Not Reportable 07/17/20 15:25 Livier Cells Not Reportable 07/17/20 15:25 Bite Cells Not Reportable 07/17/20 15:25 Crenated Cell Not Reportable 07/17/20 15:25 Elliptocytes Not Reportable 07/17/20 15:25 Acanthocytes (Spur) Not Reportable 07/17/20 15:25 Rouleaux Not Reportable 07/17/20 15:25 Hemoglobin C Crystals Not Reportable 07/17/20 15:25 Schistocytes Not Reportable 07/17/20 15:25 Malaria parasites Not Reportable 07/17/20 15:25 Victoriano Bodies Not Reportable 07/17/20 15:25 Hem Pathologist Commnt Sent to pathology 07/17/20 15:25 PT 18.2 Sec. (12.2-14.9) H 07/17/20 15:25 INR 1.52 (0.87-1.13) H 07/17/20 15:25 APTT 28.5 Sec. (24.2-36.6) 06/26/20 05:47 Fibrinogen 419 mg/dl (211-480) 07/15/20 08:21 D-Dimer 6608.00 ng/mlDDU (0-234) H 07/03/20 14:50 Heparin Anti-Xa Level < 0.10 U.I./ml (0.3-0.7) L 06/26/20 01:30 ABG pH 7.355 (7.320-7.450) 07/23/20 04:56 POC ABG pCO2 46.9 mmHg (32.0-48.0) 07/23/20 04:56 ABG pCO2 56.4 mm Hg 07/05/20 04:30 POC ABG pO2 75.7 mmHg (83-108) L 07/23/20 04:56 ABG pO2 151.9 mm Hg (80.0-90.0) H 07/05/20 04:30 POC ABG HCO3 25.6 07/23/20 04:56 ABG HCO3 26.8 mmol/L (20.0-26.0) H 07/05/20 04:30 ABG O2 Saturation 94.8 (0-100) 07/23/20 04:56 ABG O2 Content 5.0 (0.0-44) 07/04/20 05:20 POC ABG Base Excess -0.1 07/23/20 04:56 ABG Base Excess 0.1 mmol/L (-2.0-3.0) 07/05/20 04:30 ABG Hemoglobin 9.3 (12.0-17.5) L 07/23/20 04:56 ABG Oxyhemoglobin 91.7 (94-98) L 07/22/20 04:11 ABG Carboxyhemoglobin 1.7 % (0.0-5.0) 07/05/20 04:30 ABG Methemoglobin 0.3 (0.0-1.5) 07/22/20 04:11 ABG Sodium 139.7 mmol/L (136.0-145.0) 07/23/20 04:56 ABG Potassium 3.1 mmol/L (3.40-4.50) L 07/23/20 04:56 ABG Chloride 108.0 mmol/L (98-107) H 07/23/20 04:56 ABG Glucose 101 mg/dL (65-95) H 07/23/20 04:56 Oxyhemoglobin 96.5 % (95.0-99.0) 07/05/20 04:30 Carboxyhemoglobin 1.3 (0.5-1.5) 07/22/20 04:11 FiO2 50 07/20/20 06:00 FiO2 % 40 07/23/20 04:56 Sodium 144 mmol/L (137-145) D 07/23/20 Unknown Potassium 3.1 mmol/L (3.6-5.0) L D 07/23/20 Unknown Chloride 105.8 mmol/L (98-107) 07/23/20 Unknown Carbon Dioxide 30 mmol/L (22-30) 07/23/20 Unknown Anion Gap 11 mmol/L 07/23/20 Unknown BUN 36 mg/dL (9-20) H 07/23/20 Unknown Creatinine 2.1 mg/dL (0.8-1.3) H 07/23/20 Unknown Estimated GFR 39 ml/min 07/23/20 Unknown BUN/Creatinine Ratio 17 % 07/23/20 Unknown Glucose 103 mg/dL (75-100) H 07/23/20 Unknown POC Glucose 107 mg/dL (70-105) H 07/23/20 11:49 Lactic Acid 0.90 mmol/L (0.7-2.0) 07/23/20 Unknown Calcium 9.3 mg/dL (8.4-10.2) D 07/23/20 Unknown Phosphorus 9.40 mg/dL (2.5-4.5) H 06/30/20 03:50 Magnesium 2.70 mg/dL (1.7-2.3) H 06/18/20 20:33 Ferritin 1171.0 ng/mL (30.0-300.0) H 07/03/20 14:50 Total Bilirubin 0.40 mg/dL (0.1-1.2) 07/19/20 09:15 Direct Bilirubin 0.5 mg/dL (0-0.2) H 07/05/20 08:21 Indirect Bilirubin 0.1 mg/dL 07/05/20 08:21 AST 54 units/L (5-40) H 07/19/20 09:15 ALT 65 units/L (7-56) H 07/19/20 09:15 Alkaline Phosphatase 116 units/L (35-129) 07/19/20 09:15 Lactate Dehydrogenase 525 units/L (91-180) H 07/03/20 14:50 Total Creatine Kinase 618 units/L (55-170) H 06/29/20 Unknown Troponin T < 0.010 ng/mL (0.00-0.029) 06/17/20 12:33 C-Reactive Protein 31.50 mg/dL (0.00-1.30) H 07/03/20 14:50 Total Protein 4.3 g/dL (6.3-8.2) L 07/19/20 09:15 Albumin 1.8 g/dL (3.9-5) L 07/19/20 09:15 Albumin/Globulin Ratio 0.7 % 07/19/20 09:15 Triglycerides 197 mg/dL (2-149) H 07/22/20 16:00 Procalcitonin 6.05 ng/mL (<0.15) 07/13/20 06:59 Arterial Blood Glucose 101 mg/dL (65-95) H 07/23/20 04:56 Arterial Blood Ionized Calcium 5.3 mg/dL (4.6-5.3) 07/23/20 04:56 Urine Color Yellow (Yellow) 06/17/20 15:57 Urine Turbidity Clear (Clear) 06/17/20 15:57 Urine pH 6.0 (5.0-7.0) 06/17/20 15:57 Ur Specific [place] 1.019 (1.003-1.030) 06/17/20 15:57 Urine Protein 30 mg/dl mg/dL (Negative) 06/17/20 15:57 Urine Glucose (UA) Neg mg/dL (Negative) 06/17/20 15:57 Urine Ketones Neg mg/dL (Negative) 06/17/20 15:57 Urine Blood Sm (Negative) 06/17/20 15:57 Urine Nitrite Neg (Negative) 06/17/20 15:57 Ur Reducing Substances Not Reportable 06/17/20 15:57 Urine Bilirubin Neg (Negative) 06/17/20 15:57 Urine Ictotest Not Reportable 06/17/20 15:57 Urine Urobilinogen < 2.0 mg/dL (<2.0) 06/17/20 15:57 Ur Leukocyte Esterase Neg (Negative) 06/17/20 15:57 Urine WBC (Auto) 1.0 /HPF (0.0-6.0) 06/17/20 15:57 Urine RBC (Auto) 2.0 /HPF (0.0-6.0) 06/17/20 15:57 Urine Mucus Few /HPF 06/17/20 15:57 Urine Creatinine 192.4 mg/dL (0.1-20.0) H 06/18/20 15:00 Urine Sodium 28 mmol/L 06/18/20 15:00 Urine Chloride 31.1 mmolL (110-250) L 06/18/20 15:00 Nasal Screen MRSA (PCR) Negative (Negative) 06/19/20 10:38 Vancomycin Trough 22.7 ug/mL (5.0-20.0) H 06/20/20 08:25 Random Vancomycin 13.5 ug/mL (0-40.0) 07/16/20 07:17 Coronavirus (PCR) Negative (Negative) 07/22/20 Unknown Hepatitis A IgM Ab Non-reactive (NonReactive) 06/22/20 17:00 Hep Bs Antigen Non-reactive (Negative) 06/22/20 17:00 Hep B Core IgM Ab Non-reactive (NonReactive) 06/22/20 17:00 Hepatitis C Antibody Non-reactive (NonReactive) 06/22/20 17:00 SARS-CoV-2 IgG Ab Nonreactive (NonReactive) 07/04/20 05:20 Blood Type A POSITIVE 07/17/20 Unknown Antibody Screen Negative 07/17/20 Unknown Crossmatch See Detail 07/17/20 Unknown Microbiology: Microbiology 07/18/20 18:20 Peripheral/Venous Blood Culture - Preliminary NO GROWTH AFTER 4 DAYS 07/18/20 18:05 Peripheral/Venous Blood Culture - Preliminary NO GROWTH AFTER 4 DAYS - Diagnostic Impressions Diagnostic Impressions: Echocardiogram 06/29/20 06:00 Transthoracic Echocardiogram Indication: A-fib BP: 105/47 HR: 99 Conclusions *The study is technically very difficult and limited due to poor acoustic windows. *Global left ventricular wall motion and contractility are within normal limits. *The estimated ejection fraction is 55-60%. *There is no pericardial effusion. Findings Procedure Info: The study quality is technically difficult. The study is technically limited due to poor acoustic windows. Left Ventricle: Global left ventricular wall motion and contractility are within normal limits. Global left ventricular systolic function is normal. The estimated ejection fraction is 55-60%. Left Atrium: The left atrium is not well visualized. Right Ventricle: The right ventricle is not well visualized. Right Atrium: The right atrium is not well visualized. Aortic Valve: The aortic valve is not well visualized. Mitral Valve: The mitral valve is not well visualized. Tricuspid Valve: The tricuspid valve is not well visualized. Pulmonic Valve: The pulmonic valve is not well visualized. Pericardium: There is no pericardial effusion. Venous: There is no change in the dimension of the inferior vena cava with respiration consistent with markedly increased right atrial pressure. [place]ell/IV: Voiding Method Incontinent Active Medications - Current Medications Current Medications: Generic Name Dose Route Start Last Admin Trade Name Freq PRN Reason Stop Dose Admin Acetaminophen 650 mg 06/17/20 14:17 07/03/20 09:16 Acetaminophen 325 Mg Tab PO 650 mg Q4H PRN Administration Pain MILD(1-3)/Fever >100.5/ROBERTS Albuterol 2.5 mg 07/19/20 12:15 Albuterol 2.5 Mg/3 Ml Nebu IH Q6HRT PRN Shortness Of Breath Amiodarone HCl 200 mg 07/19/20 14:00 07/23/20 10:11 Amiodarone 200 Mg Tab PO 200 mg BID CONNOR Administration Lipase/Protease/Amylase 1 each 06/19/20 12:15 Lipase 10,500/Protease 25,000/Amylase 43,750 (Units) Dr Cap FEEDTUBE PRN PRN For Clogged Feeding Tube Ascorbic Acid 250 mg 06/17/20 22:00 07/23/20 10:11 Ascorbic Acid 250 Mg Tab PO 250 mg BID CONNOR Administration Cholecalciferol 1,000 unit 06/18/20 10:00 07/23/20 10:11 Cholecalciferol (Vit D3) 1000 Unit (25 Mcg) Tab PO 1,000 unit DAILY CONNOR Administration Docusate Sodium 100 mg 06/23/20 15:00 07/23/20 10:10 Docusate Sodium 100 Mg/10 Ml Oral Liqd FEEDTUBE 100 mg BID CONNOR Administration Fentanyl 50 mcg 06/18/20 01:02 07/09/20 00:20 Fentanyl 100 Mcg/2 Ml Inj IV 50 mcg Q10MIN PRN Administration ANALGESIA Heparin Sodium (Porcine) 5,000 unit 06/22/20 12:53 06/30/20 13:36 Heparin 10,000 Unit/1 Ml Vial IV 5,000 unit PAM PRN Administration hemodialysis Hydrophilic Ointment 1 applic 06/17/20 22:52 07/12/20 20:22 Lip Therapy Vaseline TP 1 applic Q2HR PRN Administration Dry Lips Propofol 1,000 mg in 100 mls @ 3.402 mls/hr 06/18/20 01:00 07/23/20 08:35 Diprivan 10 Mg/Ml IV 10 mcg/kg/min TITR CONNOR 6.804 mls/hr Administration Protocol 5 MCG/KG/MIN Fentanyl Citrate 2,000 mcg in 100 mls @ 8 mls/hr 06/18/20 02:00 07/23/20 08:37 Fentanyl Drip Premix IV 1 mcg/kg/hr TITR CONNOR 8 mls/hr Administration Protocol 1 MCG/KG/HR Norepinephrine 4 mg in 250 mls @ 7.5 mls/hr 07/08/20 02:06 07/23/20 13:16 Levophed Drip 4 Mg/Ns 250 Ml IV 12 mcg/min TITR CONNOR 45 mls/hr Titration Protocol 2 MCG/MIN Vasopressin 20 unit/ Sodium 101 mls @ 9.09 mls/hr 07/11/20 11:00 07/18/20 15:36 Chloride IV 0 units/min TITR CONNOR 0 mls/hr Titration Protocol 0.03 UNITS/MIN Sodium Chloride 100 mls @ 999 mls/hr 07/19/20 08:22 Nacl 0.9% IV PAM PRN Hypotension Ampicillin Sodium 2 gm in 100 mls @ 100 mls/hr 07/21/20 12:00 07/23/20 12:47 Ampicillin/Ns 2 Gm/100 Ml IV 08/02/20 12:59 100 mls/hr Q12H CONNOR Administration Protocol Insulin Human Regular 0 units 06/18/20 12:00 07/23/20 12:25 Insulin Regular, Human 100 Units/1 Ml SUB-Q Not Given Q6HR [facility] Protocol Multi-Ingred Cream/Lotion/Oil/Oint 1 applic 06/17/20 22:52 07/12/20 20:22 Mineral Oil/Petrolatum, White Ophth Oint 3.5 Gm OU 1 applic Q4HR PRN Administration Dry Eye(s) Ondansetron HCl 4 mg 06/17/20 14:17 Ondansetron 4 Mg/2 Ml Inj IV Q8H PRN Nausea And Vomiting Pantoprazole Sodium 40 mg 07/16/20 22:00 07/23/20 10:10 Pantoprazole 40 Mg Inj IV 40 mg BID CONNOR Administration Polyethylene Glycol 17 gm 06/23/20 15:00 07/23/20 10:11 Polyethylene Glycol 3350 17 Gm Powder PO 17 gm QDAY CONNOR Administration Quetiapine Fumarate 200 mg 06/28/20 13:00 07/23/20 10:11 Quetiapine 200 Mg Tab PO 200 mg BID CONNOR Administration Simple Syrup 15 ml 06/19/20 12:15 07/19/20 00:48 Simple Syrup 15 Ml FEEDTUBE 15 ml PRN PRN Administration Hypoglycemia Simple Syrup 30 ml 06/19/20 12:15 07/19/20 06:04 Simple Syrup 15 Ml FEEDTUBE 30 ml PRN PRN Administration Hypoglycemia Sodium Bicarbonate 325 mg 06/19/20 12:15 07/11/20 20:00 Sodium Bicarbonate 325 Mg Tab FEEDTUBE 325 mg PRN PRN Administration For Clogged Feeding Tube Sodium Bicarbonate 650 mg 07/04/20 10:00 07/23/20 13:14 Sodium Bicarbonate 650 Mg Tab PO 650 mg TID CONNOR Administration Sodium Chloride 10 ml 06/17/20 22:00 07/23/20 10:10 Sodium Chloride 0.9% 10 Ml Flush Syringe IV 10 ml BID CONNOR Administration Sodium Chloride 10 ml 06/17/20 14:17 Sodium Chloride 0.9% 10 Ml Flush Syringe IV PRN PRN LINE FLUSH Sodium Hypochlorite 1 applic 07/20/20 10:00 07/23/20 10:10 Sodium Hypochlorite, Dakin's 1/2 Strength (0.25%) 473 Ml Topical Soln TP 1 applicatio BID CONNOR Administration Sodium Polystyrene Sulfonate 15 gm 07/03/20 11:19 07/05/20 10:36 Sodium Polystyrene 15 Gm/60 Ml Oral Liqd PO 15 gm Q6HR PRN Administration Hyperkalemia Zinc Sulfate 220 mg 06/17/20 22:00 07/23/20 10:11 Zinc Sulfate 220 Mg Cap PO 220 mg BID CONNOR Administration Nutrition/Malnutrition Assess - Dietary Evaluation Nutrition/Malnutrition Findings: Nutrition Notes Start: 06/18/20 10:28 Freq: Status: Active Protocol: Document 07/22/20 11:37 AL (Rec: 07/22/20 11:42 AL [id number]) Co-Sign 07/22/20 11:37 CW Nutrition Notes Initial or Follow up Reassessment Current Diagnosis Acute Kidney Injury,Sepsis, Respiratory Failure Other Pertinent Diagnosis COVID-19 (+), pneu Current Diet Nepro 1.8 at 50 ml/hr Labs/Tests No new labs Pertinent Medications Colace Vitamin D3 Miralax Propofol 6.8 ml/hr (180 kcal) Height 6 ft Weight 153.9 kg [place] Body Weight (kg) 80.90 BMI 46.0 Weight Status Morbidly Obese Subjective/Other Information F/U for stable TF. Pt tolerates TF at 50 ml/hr (goal rate). Pt still on the vent. Pt has new necrotic sacral pressure ulcer. Percent of energy/protein needs met: 89%/48% Burn Absent Trauma Absent GI Symptoms Other Skin Integrity/Comment Unstageable Sacral Pressure Ulcer Current % PO Negligible Minimum of two criteria No physical signs of malnutrition #3 Nutrition Diagnosis Increased nutrient needs ( specify in comment below) Comments: Protein Etiology need for wound healing As Evidenced by Signs and Symptoms Necrotic sacral pressure ulcer #2 Nutrition Diagnosis Overweight/obesity Diagnosis Progress(for reassessment Continues documentation) #1 Nutrition Diagnosis Inadequate oral intake Diagnosis Progress(for reassessment Continues documentation) Is patient on ventilator? Yes Is Patient Ambulatory and/or Out of Bed No REE-([facility]-confined to bed) 2856.504 Kcal/Kg value to use for calculation 14 Approximate Energy Requirements Using 2155 kcal/Kg Calculation Used for Recommendations Kcal/kg Additional Notes Protein needs up to >2 g/kg IBW: 162 g Fluid needs: 1,000 ml + output Nutrition Intervention Change Diet Order: TF Nutrition Support: Nepro 1.8 at 50 ml/hr Flush 215 ml q4h Kcal 2,160 Protein (gm) 97 Fluid (mL) 872 Goal #1 Tolerate TF at goal rate Goal #2 Meet energy and protein needs as best as possible. Goal #3 Wound healing Anticipated Discharge Needs: Unable to determine at the time. Follow-Up By: 07/26/20 Additional Comments F/U for TF tolerance, wound, and vent status
--- NOTE | 2020-07-23 14:31 | Progress Note ---
Assessment and Plan Acute hypoxemic respiratory failure due to COVID-19 Severe COVID infection Severe Sepsis with shock Bilateral pneumonia Acute kidney injury (GIRISH) with acute tubular necrosis (ATN) Elevated liver enzymes Obesity - reduced FiO2 to 40% - continue wound care per WCN / RN - continue on bariatric bed deployed - surgery consult placed for tracheostomy - keep peep at 10 for now re: bibasilar consolidation - continue care as below otherwise; - continue to avoid supine position as much as possible - adjust ant-infective's per ID rec's (Ampicillin) - continue bid protonix - wean vasopressors for target MAP > 65 mmHg - continue daily SAT's & SBT's as tolerated - continue tube feeds at goal rate as tolerated - continue HD/UF per nephrology team for toxin and volume clearance - continue bowel regimen - Continue to wean supplemental oxygen for O2 sats >92% - Monitor blood pressure closely while optimizing sedation,wean vasopressor support for MAP > 65 mmHg - VAP bundle addressed, aspiration precautions HOB >40 - continue lung protective strategies, permissive hypercapnic acceptable. - continue bronchodilators with pulmonary hygiene per RT - wean per pulmonary driven protocols otherwise - accuchecks with glycemic control per SSI (While critically ill target blood glucose of 140-180 mg/dL; avoid hypoglycemia) - sedation prn for target RASS -1 to -2 - continue enteral nutritional support at goal rate as tolerated - on antibiotics per ID recommendations - follow clinically re: fevers / WBC - Monitor liver function test ,avoid hepatotoxic agents - azotemia per nephrology rec's - Avoid nephrotoxins, renally dose all medications, conservative fluid management - continue to avoid benzodiazepines, reduce the possibility of delirium, - prn analgesia per CPOT score - Maintenance of sleep-wake cycle, avoid delirium - Stress ulcer prophylaxis, Famotidine - PT/OT/ROM exercises - Mobility protocols for pressure ulcer prevention - CXR, ABG in am - CBC, CMP in am - Supportive transfusions to keep HgB >7g/dL - Monitor hemodynamics closely - continue other care per attending / other consultants COVID SPECIFIC INTERVENTIONS - s/p steroids: Dexamethasone - completed Remdesivir - monitor inflammatory markers prn - ferritin, D-dimer, CRP, LDH per facility protocol - continue anticoagulation per System Protocol based on d-dimer (on hold due to bleeding) - continue contact and airborne isolation CONDITION: CRITICAL PROGNOSIS: GUARDED CODE STATUS: FULL CODE The high probability of a clinically significant, sudden or life-threatening deterioration of the [respiratory, cardiovascular, hematologic & neurologic] system(s) required my full and direct attention, intervention and personal management. The aggregate critical care time was [35] minutes without overlap. Time includes spent on; [x] Data Review and interpretation [x] Patient assessment and monitoring of vital signs [x] Documentation [x] Medication orders and management He was evaluated in the context of the global COVID-19 pandemic, which necessitated consideration that the patient might be at risk for infection with the virus that causes COVID-19. Institutional protocols and algorithms that pertain to the evaluation of patients at risk for COVID-19 are in a state of rapid change based on information released by regulatory bodies including the CDC and federal and state organizations. These policies and algorithms were followed during the patient's care in the ICU Please note that these policies, procedures and recommendations changed on a rapid basis. Subjective Date of service: 07/23/20 Principal diagnosis: ARF; Septic Shock; COVID-19 PNA; Atrial fibrillation; Obesity Interval history: Patient is seen today for: Ac hypoxemic respiratory failure; COVID-19; Severe Sepsis with shock; Zackery. pneumonia; GIRISH; Elevated liver enzymes; Obesity Seen and examined at bedside; 24hour events reviewed; nursing and respiratory care staff consulted; no adverse overnight events reported to me; resting in bed; remains on MVS; tolerating HD/UF; remains hypotensive and on Levophed drip today; AMS is persistent; no gross bleeding; no high grade fevers Objective Vital Signs - 12hr 07/23/20 07/23/20 07/23/20 02:36 02:40 02:46 Temperature Pulse Rate 97 H 95 H 99 H Pulse Rate [ From Monitor] Respiratory 20 18 17 Rate Blood Pressure 110/63 108/61 108/61 O2 Sat by Pulse 100 100 100 Oximetry 07/23/20 07/23/20 07/23/20 02:50 02:56 03:00 Temperature Pulse Rate 103 H 99 H 96 H Pulse Rate [ From Monitor] Respiratory 14 13 22 Rate Blood Pressure 108/61 96/66 96/66 O2 Sat by Pulse 99 100 100 Oximetry 07/23/20 07/23/20 07/23/20 03:06 03:10 03:16 Temperature Pulse Rate 124 H 100 H 109 H Pulse Rate [ From Monitor] Respiratory 14 25 H 23 Rate Blood Pressure 132/68 129/70 129/70 O2 Sat by Pulse 100 100 100 Oximetry 07/23/20 07/23/20 07/23/20 03:20 03:26 03:30 Temperature Pulse Rate 108 H 107 H 109 H Pulse Rate [ From Monitor] Respiratory 17 14 24 Rate Blood Pressure 128/65 128/65 128/65 O2 Sat by Pulse 100 100 100 Oximetry 07/23/20 07/23/20 07/23/20 03:36 03:40 03:46 Temperature Pulse Rate 116 H 129 H 110 H Pulse Rate [ From Monitor] Respiratory 21 20 14 Rate Blood Pressure 147/75 147/75 147/75 O2 Sat by Pulse 98 100 97 Oximetry 07/23/20 07/23/20 07/23/20 03:50 03:55 04:00 Temperature 97.6 F Pulse Rate 135 H 104 H 123 H Pulse Rate [ From Monitor] Respiratory 27 H 21 24 Rate Blood Pressure 147/75 129/64 120/69 O2 Sat by Pulse 97 97 Oximetry 07/23/20 07/23/20 07/23/20 04:06 04:10 04:16 Temperature Pulse Rate 113 H 118 H 111 H Pulse Rate [ From Monitor] Respiratory 13 25 H 29 H Rate Blood Pressure 120/69 126/62 126/62 O2 Sat by Pulse 97 97 98 Oximetry 07/23/20 07/23/20 07/23/20 04:17 04:20 04:26 Temperature Pulse Rate 123 H 108 H 110 H Pulse Rate [ From Monitor] Respiratory 25 H 20 12 Rate Blood Pressure 132/61 132/61 O2 Sat by Pulse 99 98 98 Oximetry 07/23/20 07/23/20 07/23/20 04:30 04:36 04:40 Temperature Pulse Rate 109 H 102 H 101 H Pulse Rate [ From Monitor] Respiratory 15 21 12 Rate Blood Pressure 131/70 131/70 134/69 O2 Sat by Pulse 98 98 98 Oximetry 07/23/20 07/23/20 07/23/20 04:46 04:50 04:56 Temperature Pulse Rate 104 H 104 H 105 H Pulse Rate [ From Monitor] Respiratory 16 17 18 Rate Blood Pressure 134/69 134/69 125/68 O2 Sat by Pulse 98 99 98 Oximetry 07/23/20 07/23/20 07/23/20 04:57 05:00 05:06 Temperature Pulse Rate 102 H 113 H 114 H Pulse Rate [ From Monitor] Respiratory 19 23 Rate Blood Pressure 125/68 124/71 124/71 O2 Sat by Pulse 98 98 98 Oximetry 07/23/20 07/23/20 07/23/20 05:10 05:16 05:20 Temperature Pulse Rate 107 H 110 H 114 H Pulse Rate [ From Monitor] Respiratory 21 24 16 Rate Blood Pressure 123/64 123/64 131/70 O2 Sat by Pulse 99 99 99 Oximetry 07/23/20 07/23/20 07/23/20 05:26 05:30 05:36 Temperature Pulse Rate 116 H 112 H 107 H Pulse Rate [ From Monitor] Respiratory 18 16 15 Rate Blood Pressure 131/70 115/66 115/66 O2 Sat by Pulse 99 99 99 Oximetry 07/23/20 07/23/20 07/23/20 05:40 05:46 05:50 Temperature Pulse Rate 117 H 125 H 125 H Pulse Rate [ From Monitor] Respiratory 16 13 21 Rate Blood Pressure 126/65 126/65 127/72 O2 Sat by Pulse 99 99 98 Oximetry 07/23/20 07/23/20 07/23/20 05:56 06:00 06:06 Temperature Pulse Rate 126 H 126 H 126 H Pulse Rate [ From Monitor] Respiratory 23 19 26 H Rate Blood Pressure 127/72 127/74 127/74 O2 Sat by Pulse 99 99 99 Oximetry 07/23/20 07/23/20 07/23/20 06:10 06:16 06:20 Temperature Pulse Rate 125 H 126 H 126 H Pulse Rate [ From Monitor] Respiratory 15 22 17 Rate Blood Pressure 127/73 127/73 113/73 O2 Sat by Pulse 99 99 99 Oximetry 07/23/20 07/23/20 07/23/20 06:26 06:30 06:36 Temperature Pulse Rate 128 H 126 H 125 H Pulse Rate [ From Monitor] Respiratory 19 23 17 Rate Blood Pressure 113/73 121/79 121/79 O2 Sat by Pulse 97 98 98 Oximetry 07/23/20 07/23/20 07/23/20 06:40 06:46 06:50 Temperature Pulse Rate 125 H 125 H 125 H Pulse Rate [ From Monitor] Respiratory 15 27 H 21 Rate Blood Pressure 120/74 113/73 121/74 O2 Sat by Pulse 99 99 99 Oximetry 07/23/20 07/23/20 07/23/20 06:56 07:00 07:06 Temperature Pulse Rate 125 H 126 H 125 H Pulse Rate [ From Monitor] Respiratory 20 14 23 Rate Blood Pressure 121/74 113/75 113/75 O2 Sat by Pulse 100 99 99 Oximetry 07/23/20 07/23/20 07/23/20 07:10 07:16 07:20 Temperature Pulse Rate 126 H 125 H 125 H Pulse Rate [ From Monitor] Respiratory 26 H 20 19 Rate Blood Pressure 113/75 102/65 102/65 O2 Sat by Pulse 100 99 98 Oximetry 07/23/20 07/23/20 07/23/20 07:26 07:30 07:36 Temperature Pulse Rate 124 H 123 H 125 H Pulse Rate [ From Monitor] Respiratory 19 20 26 H Rate Blood Pressure 94/52 94/57 94/57 O2 Sat by Pulse 99 97 99 Oximetry 07/23/20 07/23/20 07/23/20 07:40 07:46 07:50 Temperature Pulse Rate 124 H 123 H 124 H Pulse Rate [ From Monitor] Respiratory 23 12 13 Rate Blood Pressure 90/51 94/52 94/52 O2 Sat by Pulse 98 98 99 Oximetry 07/23/20 07/23/20 07/23/20 07:56 08:00 08:06 Temperature 98.4 F Pulse Rate 122 H 125 H 123 H Pulse Rate [ 122 H From Monitor] Respiratory 19 25 H 22 Rate Blood Pressure 77/44 86/52 86/52 O2 Sat by Pulse 99 100 99 Oximetry 07/23/20 07/23/20 07/23/20 08:10 08:16 08:20 Temperature Pulse Rate 121 H 122 H 121 H Pulse Rate [ From Monitor] Respiratory 29 H 21 18 Rate Blood Pressure 90/50 90/50 87/54 O2 Sat by Pulse 99 100 100 Oximetry 07/23/20 07/23/20 07/23/20 08:26 08:30 08:36 Temperature Pulse Rate 120 H 123 H 116 H Pulse Rate [ From Monitor] Respiratory 25 H 18 14 Rate Blood Pressure 87/54 81/53 81/53 O2 Sat by Pulse 98 100 100 Oximetry 07/23/20 07/23/20 07/23/20 08:40 08:41 08:46 Temperature Pulse Rate 122 H 122 H 121 H Pulse Rate [ From Monitor] Respiratory 14 10 L Rate Blood Pressure 85/58 134/78 85/58 O2 Sat by Pulse 100 99 100 Oximetry 07/23/20 07/23/20 07/23/20 08:50 08:56 09:00 Temperature Pulse Rate 122 H 123 H 124 H Pulse Rate [ From Monitor] Respiratory 19 24 18 Rate Blood Pressure 85/58 134/78 135/81 O2 Sat by Pulse 100 100 99 Oximetry 07/23/20 07/23/20 07/23/20 09:06 09:10 09:16 Temperature Pulse Rate 122 H 124 H 124 H Pulse Rate [ From Monitor] Respiratory 17 23 20 Rate Blood Pressure 135/81 144/82 144/82 O2 Sat by Pulse 98 98 97 Oximetry 07/23/20 07/23/20 07/23/20 09:20 09:26 09:30 Temperature Pulse Rate 126 H 124 H 126 H Pulse Rate [ From Monitor] Respiratory 17 12 17 Rate Blood Pressure 137/82 137/82 140/81 O2 Sat by Pulse 98 97 97 Oximetry 07/23/20 07/23/20 07/23/20 09:36 09:40 09:46 Temperature Pulse Rate 126 H 125 H 126 H Pulse Rate [ From Monitor] Respiratory 13 18 14 Rate Blood Pressure 140/81 133/80 133/80 O2 Sat by Pulse 97 97 97 Oximetry 07/23/20 07/23/20 07/23/20 09:50 09:56 10:00 Temperature Pulse Rate 128 H 128 H 127 H Pulse Rate [ From Monitor] Respiratory 20 19 13 Rate Blood Pressure 141/86 141/86 141/86 O2 Sat by Pulse 96 96 97 Oximetry 07/23/20 07/23/20 07/23/20 10:06 10:10 10:16 Temperature Pulse Rate 127 H 127 H 127 H Pulse Rate [ From Monitor] Respiratory 26 H 15 18 Rate Blood Pressure 124/78 136/76 136/76 O2 Sat by Pulse 96 97 96 Oximetry 07/23/20 07/23/20 07/23/20 10:20 10:26 10:30 Temperature Pulse Rate 126 H 128 H 128 H Pulse Rate [ From Monitor] Respiratory 28 H 18 23 Rate Blood Pressure 140/80 140/80 140/80 O2 Sat by Pulse 94 95 95 Oximetry 07/23/20 07/23/20 07/23/20 10:36 10:40 10:46 Temperature Pulse Rate 128 H 129 H 127 H Pulse Rate [ From Monitor] Respiratory 20 20 31 H Rate Blood Pressure 137/75 142/69 142/69 O2 Sat by Pulse 95 94 93 Oximetry 07/23/20 07/23/20 07/23/20 10:50 10:55 11:00 Temperature Pulse Rate 128 H 128 H 142 H Pulse Rate [ From Monitor] Respiratory 23 25 H 34 H Rate Blood Pressure 142/69 129/64 129/64 O2 Sat by Pulse 93 92 91 Oximetry 07/23/20 07/23/20 07/23/20 11:02 11:06 11:10 Temperature Pulse Rate 140 H 128 H 127 H Pulse Rate [ From Monitor] Respiratory 32 H 35 H Rate Blood Pressure 118/57 118/56 O2 Sat by Pulse 90 90 Oximetry 07/23/20 07/23/20 07/23/20 11:15 11:20 11:25 Temperature Pulse Rate 127 H 126 H 129 H Pulse Rate [ From Monitor] Respiratory 31 H 33 H 15 Rate Blood Pressure 118/56 124/54 118/57 O2 Sat by Pulse 91 89 89 Oximetry 07/23/20 07/23/20 07/23/20 11:31 11:34 11:35 Temperature Pulse Rate 126 H 126 H 128 H Pulse Rate [ From Monitor] Respiratory 24 33 H Rate Blood Pressure 144/61 144/61 144/61 O2 Sat by Pulse 89 97 88 Oximetry 07/23/20 07/23/20 07/23/20 11:40 11:45 11:50 Temperature Pulse Rate 128 H 129 H 101 H Pulse Rate [ From Monitor] Respiratory 34 H 27 H Rate Blood Pressure 111/55 111/55 O2 Sat by Pulse 90 99 Oximetry 07/23/20 07/23/20 07/23/20 11:51 11:55 12:00 Temperature 98.7 F Pulse Rate 126 H 126 H 127 H Pulse Rate [ 126 H From Monitor] Respiratory 40 H 37 H 36 H Rate Blood Pressure 110/59 110/59 111/58 O2 Sat by Pulse 92 90 90 Oximetry 07/23/20 12:05 Temperature Pulse Rate 128 H Pulse Rate [ From Monitor] Respiratory 36 H Rate Blood Pressure 111/58 O2 Sat by Pulse 89 Oximetry Constitutional: appears uncomfortable, other (morbidly obese, atraumatic, normocephalic, mild resp distress, orally intubated) Eyes: non-icteric ENT: oropharynx dry, other (ETT 24 cm TROY ) Neck: supple, no lymphadenopathy, other (Large , short neck) Effort: mildly labored Ascultation: Bilateral: diminished breath sounds, rhonchi (scant) Percussion: Bilateral: not dull Cardiovascular: irregular rhythm, other (S1,S2) Gastrointestinal: normoactive bowel sounds, soft, non-tender, non-distended (protuberant), other (lizeth-rectal tube slow oozing) Integumentary: rash, other (Femoral CVC, Newell catheter) Extremities: pink and warm, pulses normal, no ischemia or petechiae, edema (trace to 1+) Neurologic: non-focal exam (grossly), pupils equal and round, CN II-XII normal, other (unable to assess, sedated) Psychiatric: other (unable to assess, sedated) CBC and BMP: 07/24/20 06:40 07/24/20 06:40 ABG, PT/INR, D-dimer: ABG ABG pH 7.355 (7.320-7.450) 07/23/20 04:56 POC ABG pCO2 46.9 mmHg (32.0-48.0) 07/23/20 04:56 ABG pCO2 56.4 mm Hg 07/05/20 04:30 POC ABG pO2 75.7 mmHg (83-108) L 07/23/20 04:56 ABG pO2 151.9 mm Hg (80.0-90.0) H 07/05/20 04:30 POC ABG HCO3 25.6 07/23/20 04:56 ABG O2 Saturation 94.8 (0-100) 07/23/20 04:56 PT/INR, D-dimer PT 18.2 Sec. (12.2-14.9) H 07/17/20 15:25 INR 1.52 (0.87-1.13) H 07/17/20 15:25 D-Dimer 6608.00 ng/mlDDU (0-234) H 07/03/20 14:50 Abnormal lab findings: Abnormal Labs 06/17/20 06/17/20 06/17/20 12:33 12:33 12:33 WBC 19.5 H RBC 5.18 H Hgb 15.5 H Hct MCHC RDW Plt Count Lymph % (Auto) 3.8 L [place] % (Auto) Lymph # (Auto) 0.7 L [place] # (Auto) Eos # (Auto) Seg Neutrophils % Seg Neuts % (Manual) 99.0 H Lymphocytes % (Manual) 1.0 L Monocytes % (Manual) Nucleated RBC % Seg Neutrophils # 18.2 H Seg Neutrophils # Man 19.3 H Lymphocytes # (Manual) 0.2 L Monocytes # (Manual) Eosinophils # (Manual) PT 16.5 H INR 1.33 H APTT D-Dimer 1025.04 H Heparin Anti-Xa Level ABG pH POC ABG pCO2 POC ABG pO2 ABG pO2 ABG HCO3 ABG Hemoglobin ABG Oxyhemoglobin ABG Sodium ABG Potassium ABG Chloride ABG Glucose Carboxyhemoglobin Sodium 130 L Potassium 3.4 L Chloride 95.0 L Carbon Dioxide BUN 21 H Creatinine Glucose 137 H POC Glucose Lactic Acid Calcium 7.9 L Phosphorus Magnesium Ferritin Direct Bilirubin AST 84 H ALT 67 H Alkaline Phosphatase Lactate Dehydrogenase 437 H Total Creatine Kinase 310 H C-Reactive Protein 27.90 H Total Protein Albumin 2.9 L Triglycerides Arterial Blood Glucose Arterial Blood Ionized Calcium Urine Creatinine Urine Chloride Vancomycin Trough Coronavirus (PCR) Crossmatch 06/17/20 06/17/20 06/17/20 12:33 12:33 14:48 WBC RBC Hgb Hct MCHC RDW Plt Count Lymph % (Auto) [place] % (Auto) Lymph # (Auto) [place] # (Auto) Eos # (Auto) Seg Neutrophils % Seg Neuts % (Manual) Lymphocytes % (Manual) Monocytes % (Manual) Nucleated RBC % Seg Neutrophils # Seg Neutrophils # Man Lymphocytes # (Manual) Monocytes # (Manual) Eosinophils # (Manual) PT INR APTT D-Dimer Heparin Anti-Xa Level ABG pH POC ABG pCO2 POC ABG pO2 ABG pO2 ABG HCO3 ABG Hemoglobin ABG Oxyhemoglobin ABG Sodium ABG Potassium ABG Chloride ABG Glucose Carboxyhemoglobin Sodium Potassium Chloride Carbon Dioxide BUN Creatinine Glucose POC Glucose Lactic Acid 2.50 H* 2.20 H* Calcium Phosphorus Magnesium Ferritin 2297.0 H Direct Bilirubin AST ALT Alkaline Phosphatase Lactate Dehydrogenase Total Creatine Kinase C-Reactive Protein Total Protein Albumin Triglycerides Arterial Blood Glucose Arterial Blood Ionized Calcium Urine Creatinine Urine Chloride Vancomycin Trough Coronavirus (PCR) Crossmatch 06/17/20 06/17/20 06/17/20 14:48 14:48 14:48 WBC RBC Hgb Hct MCHC RDW Plt Count Lymph % (Auto) [place] % (Auto) Lymph # (Auto) [place] # (Auto) Eos # (Auto) Seg Neutrophils % Seg Neuts % (Manual) Lymphocytes % (Manual) Monocytes % (Manual) Nucleated RBC % Seg Neutrophils # Seg Neutrophils # Man Lymphocytes # (Manual) Monocytes # (Manual) Eosinophils # (Manual) PT INR APTT D-Dimer 939.89 H Heparin Anti-Xa Level ABG pH POC ABG pCO2 POC ABG pO2 ABG pO2 ABG HCO3 ABG Hemoglobin ABG Oxyhemoglobin ABG Sodium ABG Potassium ABG Chloride ABG Glucose Carboxyhemoglobin Sodium Potassium Chloride Carbon Dioxide BUN Creatinine Glucose 141 H POC Glucose Lactic Acid Calcium Phosphorus Magnesium Ferritin > 2000.0 H Direct Bilirubin AST ALT Alkaline Phosphatase Lactate Dehydrogenase 503 H Total Creatine Kinase C-Reactive Protein 24.70 H Total Protein Albumin Triglycerides Arterial Blood Glucose Arterial Blood Ionized Calcium Urine Creatinine Urine Chloride Vancomycin Trough Coronavirus (PCR) Crossmatch 06/17/20 06/17/20 06/17/20 16:54 19:39 23:43 WBC RBC Hgb Hct MCHC RDW Plt Count Lymph % (Auto) [place] % (Auto) Lymph # (Auto) [place] # (Auto) Eos # (Auto) Seg Neutrophils % Seg Neuts % (Manual) Lymphocytes % (Manual) Monocytes % (Manual) Nucleated RBC % Seg Neutrophils # Seg Neutrophils # Man Lymphocytes # (Manual) Monocytes # (Manual) Eosinophils # (Manual) PT INR APTT D-Dimer Heparin Anti-Xa Level ABG pH 7.571 H POC ABG pCO2 24.3 L POC ABG pO2 41.6 L ABG pO2 ABG HCO3 ABG Hemoglobin ABG Oxyhemoglobin 84.0 L ABG Sodium 131.0 L ABG Potassium ABG Chloride ABG Glucose 163 H Carboxyhemoglobin Sodium Potassium Chloride Carbon Dioxide BUN Creatinine Glucose POC Glucose 185 H Lactic Acid 2.10 H* Calcium Phosphorus Magnesium Ferritin Direct Bilirubin AST ALT Alkaline Phosphatase Lactate Dehydrogenase Total Creatine Kinase C-Reactive Protein Total Protein Albumin Triglycerides Arterial Blood Glucose 163 H Arterial Blood Ionized Calcium 4.4 L Urine Creatinine Urine Chloride Vancomycin Trough Coronavirus (PCR) Crossmatch 06/18/20 06/18/20 06/18/20 00:17 00:23 03:55 WBC RBC Hgb Hct MCHC RDW Plt Count Lymph % (Auto) [place] % (Auto) Lymph # (Auto) [place] # (Auto) Eos # (Auto) Seg Neutrophils % Seg Neuts % (Manual) Lymphocytes % (Manual) Monocytes % (Manual) Nucleated RBC % Seg Neutrophils # Seg Neutrophils # Man Lymphocytes # (Manual) Monocytes # (Manual) Eosinophils # (Manual) PT INR APTT D-Dimer Heparin Anti-Xa Level ABG pH POC ABG pCO2 POC ABG pO2 56.5 L 48.3 L ABG pO2 ABG HCO3 ABG Hemoglobin ABG Oxyhemoglobin 86.3 L 81.7 L ABG Sodium 132.9 L 131.0 L ABG Potassium ABG Chloride ABG Glucose 189 H 161 H Carboxyhemoglobin 0.4 L Sodium Potassium Chloride Carbon Dioxide BUN Creatinine Glucose POC Glucose Lactic Acid 3.80 H* Calcium Phosphorus Magnesium Ferritin Direct Bilirubin AST ALT Alkaline Phosphatase Lactate Dehydrogenase Total Creatine Kinase C-Reactive Protein Total Protein Albumin Triglycerides Arterial Blood Glucose 189 H 161 H Arterial Blood Ionized Calcium 4.3 L 4.2 L Urine Creatinine Urine Chloride Vancomycin Trough Coronavirus (PCR) Crossmatch 06/18/20 06/18/20 06/18/20 05:39 05:39 05:39 WBC 26.2 H RBC Hgb Hct MCHC RDW Plt Count Lymph % (Auto) [place] % (Auto) Lymph # (Auto) [place] # (Auto) Eos # (Auto) Seg Neutrophils % Seg Neuts % (Manual) 90.0 H Lymphocytes % (Manual) 5.0 L Monocytes % (Manual) Nucleated RBC % Seg Neutrophils # Seg Neutrophils # Man 23.6 H Lymphocytes # (Manual) Monocytes # (Manual) 1.3 H Eosinophils # (Manual) PT INR APTT D-Dimer Heparin Anti-Xa Level ABG pH POC ABG pCO2 POC ABG pO2 ABG pO2 ABG HCO3 ABG Hemoglobin ABG Oxyhemoglobin ABG Sodium ABG Potassium ABG Chloride ABG Glucose Carboxyhemoglobin Sodium 135 L Potassium Chloride 97.5 L Carbon Dioxide 21 L BUN 39 H Creatinine 1.7 H D Glucose 168 H POC Glucose Lactic Acid 3.40 H* Calcium 7.2 L Phosphorus Magnesium Ferritin Direct Bilirubin AST ALT Alkaline Phosphatase Lactate Dehydrogenase Total Creatine Kinase C-Reactive Protein Total Protein Albumin Triglycerides Arterial Blood Glucose Arterial Blood Ionized Calcium Urine Creatinine Urine Chloride Vancomycin Trough Coronavirus (PCR) Crossmatch 06/18/20 06/18/20 06/18/20 07:24 09:00 10:10 WBC RBC Hgb Hct MCHC RDW Plt Count Lymph % (Auto) [place] % (Auto) Lymph # (Auto) [place] # (Auto) Eos # (Auto) Seg Neutrophils % Seg Neuts % (Manual) Lymphocytes % (Manual) Monocytes % (Manual) Nucleated RBC % Seg Neutrophils # Seg Neutrophils # Man Lymphocytes # (Manual) Monocytes # (Manual) Eosinophils # (Manual) PT INR APTT D-Dimer Heparin Anti-Xa Level ABG pH POC ABG pCO2 POC ABG pO2 ABG pO2 ABG HCO3 ABG Hemoglobin ABG Oxyhemoglobin ABG Sodium ABG Potassium ABG Chloride ABG Glucose Carboxyhemoglobin Sodium Potassium Chloride Carbon Dioxide BUN Creatinine Glucose POC Glucose Lactic Acid 2.90 H* 3.20 H* Calcium Phosphorus Magnesium Ferritin Direct Bilirubin AST ALT Alkaline Phosphatase Lactate Dehydrogenase Total Creatine Kinase C-Reactive Protein Total Protein Albumin Triglycerides Arterial Blood Glucose Arterial Blood Ionized Calcium Urine Creatinine Urine Chloride Vancomycin Trough Coronavirus (PCR) Positive A Crossmatch 06/18/20 06/18/20 06/18/20 11:58 14:43 15:00 WBC RBC Hgb Hct MCHC RDW Plt Count Lymph % (Auto) [place] % (Auto) Lymph # (Auto) [place] # (Auto) Eos # (Auto) Seg Neutrophils % Seg Neuts % (Manual) Lymphocytes % (Manual) Monocytes % (Manual) Nucleated RBC % Seg Neutrophils # Seg Neutrophils # Man Lymphocytes # (Manual) Monocytes # (Manual) Eosinophils # (Manual) PT INR APTT D-Dimer Heparin Anti-Xa Level ABG pH 7.303 L POC ABG pCO2 POC ABG pO2 82.3 L ABG pO2 ABG HCO3 ABG Hemoglobin ABG Oxyhemoglobin ABG Sodium 135.3 L ABG Potassium ABG Chloride ABG Glucose 215 H Carboxyhemoglobin 0.3 L Sodium Potassium Chloride Carbon Dioxide BUN Creatinine Glucose POC Glucose 209 H Lactic Acid Calcium Phosphorus Magnesium Ferritin Direct Bilirubin AST ALT Alkaline Phosphatase Lactate Dehydrogenase Total Creatine Kinase C-Reactive Protein Total Protein Albumin Triglycerides Arterial Blood Glucose 215 H Arterial Blood Ionized Calcium 4.2 L Urine Creatinine 192.4 H Urine Chloride 31.1 L Vancomycin Trough Coronavirus (PCR) Crossmatch 06/18/20 06/18/20 06/18/20 17:16 19:44 20:33 WBC RBC Hgb Hct MCHC RDW Plt Count Lymph % (Auto) [place] % (Auto) Lymph # (Auto) [place] # (Auto) Eos # (Auto) Seg Neutrophils % Seg Neuts % (Manual) Lymphocytes % (Manual) Monocytes % (Manual) Nucleated RBC % Seg Neutrophils # Seg Neutrophils # Man Lymphocytes # (Manual) Monocytes # (Manual) Eosinophils # (Manual) PT INR APTT D-Dimer Heparin Anti-Xa Level ABG pH POC ABG pCO2 POC ABG pO2 ABG pO2 ABG HCO3 ABG Hemoglobin ABG Oxyhemoglobin ABG Sodium ABG Potassium ABG Chloride ABG Glucose Carboxyhemoglobin Sodium Potassium Chloride Carbon Dioxide BUN Creatinine Glucose POC Glucose 182 H Lactic Acid 3.00 H* Calcium Phosphorus Magnesium 2.70 H Ferritin Direct Bilirubin AST ALT Alkaline Phosphatase Lactate Dehydrogenase Total Creatine Kinase C-Reactive Protein Total Protein Albumin Triglycerides Arterial Blood Glucose Arterial Blood Ionized Calcium Urine Creatinine Urine Chloride Vancomycin Trough Coronavirus (PCR) Crossmatch 06/18/20 06/19/20 06/19/20 23:43 04:00 04:00 WBC 31.6 H RBC Hgb Hct MCHC RDW Plt Count Lymph % (Auto) [place] % (Auto) Lymph # (Auto) [place] # (Auto) Eos # (Auto) Seg Neutrophils % Seg Neuts % (Manual) 98.0 H Lymphocytes % (Manual) 0.5 L Monocytes % (Manual) Nucleated RBC % Seg Neutrophils # Seg Neutrophils # Man 31.0 H Lymphocytes # (Manual) 0.2 L Monocytes # (Manual) Eosinophils # (Manual) PT INR APTT D-Dimer Heparin Anti-Xa Level ABG pH POC ABG pCO2 POC ABG pO2 ABG pO2 ABG HCO3 ABG Hemoglobin ABG Oxyhemoglobin ABG Sodium ABG Potassium ABG Chloride ABG Glucose Carboxyhemoglobin Sodium Potassium Chloride Carbon Dioxide BUN 56 H Creatinine 1.6 H Glucose 176 H POC Glucose 149 H Lactic Acid Calcium 7.0 L Phosphorus Magnesium Ferritin Direct Bilirubin AST 244 H ALT 159 H Alkaline Phosphatase Lactate Dehydrogenase Total Creatine Kinase C-Reactive Protein Total Protein 4.9 L D Albumin 2.5 L Triglycerides Arterial Blood Glucose Arterial Blood Ionized Calcium Urine Creatinine Urine Chloride Vancomycin Trough Coronavirus (PCR) Crossmatch 06/19/20 06/19/20 06/19/20 04:00 05:44 11:42 WBC RBC Hgb Hct MCHC RDW Plt Count Lymph % (Auto) [place] % (Auto) Lymph # (Auto) [place] # (Auto) Eos # (Auto) Seg Neutrophils % Seg Neuts % (Manual) Lymphocytes % (Manual) Monocytes % (Manual) Nucleated RBC % Seg Neutrophils # Seg Neutrophils # Man Lymphocytes # (Manual) Monocytes # (Manual) Eosinophils # (Manual) PT INR APTT D-Dimer Heparin Anti-Xa Level ABG pH 7.265 L POC ABG pCO2 51.8 H POC ABG pO2 65.1 L ABG pO2 ABG HCO3 ABG Hemoglobin ABG Oxyhemoglobin ABG Sodium ABG Potassium ABG Chloride ABG Glucose 184 H Carboxyhemoglobin Sodium Potassium Chloride Carbon Dioxide BUN Creatinine Glucose POC Glucose 156 H 191 H Lactic Acid Calcium Phosphorus Magnesium Ferritin Direct Bilirubin AST ALT Alkaline Phosphatase Lactate Dehydrogenase Total Creatine Kinase C-Reactive Protein Total Protein Albumin Triglycerides Arterial Blood Glucose 184 H Arterial Blood Ionized Calcium 4.3 L Urine Creatinine Urine Chloride Vancomycin Trough Coronavirus (PCR) Crossmatch 06/19/20 06/19/20 06/19/20 12:30 17:16 18:36 WBC RBC Hgb Hct MCHC RDW Plt Count Lymph % (Auto) [place] % (Auto) Lymph # (Auto) [place] # (Auto) Eos # (Auto) Seg Neutrophils % Seg Neuts % (Manual) Lymphocytes % (Manual) Monocytes % (Manual) Nucleated RBC % Seg Neutrophils # Seg Neutrophils # Man Lymphocytes # (Manual) Monocytes # (Manual) Eosinophils # (Manual) PT 16.4 H INR 1.32 H APTT D-Dimer Heparin Anti-Xa Level ABG pH 7.088 L POC ABG pCO2 78.1 H POC ABG pO2 208.3 H ABG pO2 ABG HCO3 ABG Hemoglobin ABG Oxyhemoglobin 98.3 H ABG Sodium ABG Potassium 5.0 H ABG Chloride ABG Glucose 182 H Carboxyhemoglobin 0.4 L Sodium Potassium Chloride Carbon Dioxide BUN Creatinine Glucose POC Glucose 154 H Lactic Acid Calcium Phosphorus Magnesium Ferritin Direct Bilirubin AST ALT Alkaline Phosphatase Lactate Dehydrogenase Total Creatine Kinase C-Reactive Protein Total Protein Albumin Triglycerides Arterial Blood Glucose 182 H Arterial Blood Ionized Calcium 4.3 L Urine Creatinine Urine Chloride Vancomycin Trough Coronavirus (PCR) Crossmatch 06/19/20 06/20/20 06/20/20 23:32 03:00 05:19 WBC RBC Hgb Hct MCHC RDW Plt Count Lymph % (Auto) [place] % (Auto) Lymph # (Auto) [place] # (Auto) Eos # (Auto) Seg Neutrophils % Seg Neuts % (Manual) Lymphocytes % (Manual) Monocytes % (Manual) Nucleated RBC % Seg Neutrophils # Seg Neutrophils # Man Lymphocytes # (Manual) Monocytes # (Manual) Eosinophils # (Manual) PT INR APTT D-Dimer Heparin Anti-Xa Level 0.77 H ABG pH POC ABG pCO2 POC ABG pO2 ABG pO2 ABG HCO3 ABG Hemoglobin ABG Oxyhemoglobin ABG Sodium ABG Potassium ABG Chloride ABG Glucose Carboxyhemoglobin Sodium Potassium Chloride Carbon Dioxide BUN Creatinine Glucose POC Glucose 201 H 190 H Lactic Acid Calcium Phosphorus Magnesium Ferritin Direct Bilirubin AST ALT Alkaline Phosphatase Lactate Dehydrogenase Total Creatine Kinase C-Reactive Protein Total Protein Albumin Triglycerides Arterial Blood Glucose Arterial Blood Ionized Calcium Urine Creatinine Urine Chloride Vancomycin Trough Coronavirus (PCR) Crossmatch 06/20/20 06/20/20 06/20/20 08:25 08:25 11:36 WBC RBC Hgb Hct MCHC RDW Plt Count Lymph % (Auto) [place] % (Auto) Lymph # (Auto) [place] # (Auto) Eos # (Auto) Seg Neutrophils % Seg Neuts % (Manual) Lymphocytes % (Manual) Monocytes % (Manual) Nucleated RBC % Seg Neutrophils # Seg Neutrophils # Man Lymphocytes # (Manual) Monocytes # (Manual) Eosinophils # (Manual) PT INR APTT D-Dimer Heparin Anti-Xa Level ABG pH POC ABG pCO2 POC ABG pO2 ABG pO2 ABG HCO3 ABG Hemoglobin ABG Oxyhemoglobin ABG Sodium ABG Potassium ABG Chloride ABG Glucose Carboxyhemoglobin Sodium 135 L Potassium 5.4 H Chloride 109.2 H Carbon Dioxide 19 L BUN 68 H Creatinine 2.5 H D Glucose 201 H POC Glucose 184 H Lactic Acid Calcium 5.5 L* D Phosphorus Magnesium Ferritin Direct Bilirubin AST 123 H ALT 86 H Alkaline Phosphatase Lactate Dehydrogenase Total Creatine Kinase C-Reactive Protein Total Protein 4.6 L Albumin 1.5 L Triglycerides Arterial Blood Glucose Arterial Blood Ionized Calcium Urine Creatinine Urine Chloride Vancomycin Trough 22.7 H Coronavirus (PCR) Crossmatch 06/20/20 06/20/20 06/20/20 11:40 17:28 20:00 WBC RBC Hgb Hct MCHC RDW Plt Count Lymph % (Auto) [place] % (Auto) Lymph # (Auto) [place] # (Auto) Eos # (Auto) Seg Neutrophils % Seg Neuts % (Manual) Lymphocytes % (Manual) Monocytes % (Manual) Nucleated RBC % Seg Neutrophils # Seg Neutrophils # Man Lymphocytes # (Manual) Monocytes # (Manual) Eosinophils # (Manual) PT INR APTT D-Dimer Heparin Anti-Xa Level 0.89 H ABG pH 7.099 L POC ABG pCO2 61.1 H POC ABG pO2 ABG pO2 ABG HCO3 ABG Hemoglobin ABG Oxyhemoglobin ABG Sodium ABG Potassium 5.0 H ABG Chloride 111.0 H ABG Glucose 200 H Carboxyhemoglobin 0.4 L Sodium Potassium Chloride Carbon Dioxide BUN Creatinine Glucose POC Glucose 165 H Lactic Acid Calcium Phosphorus Magnesium Ferritin Direct Bilirubin AST ALT Alkaline Phosphatase Lactate Dehydrogenase Total Creatine Kinase C-Reactive Protein Total Protein Albumin Triglycerides Arterial Blood Glucose 200 H Arterial Blood Ionized Calcium 4.2 L Urine Creatinine Urine Chloride Vancomycin Trough Coronavirus (PCR) Crossmatch 06/20/20 06/21/20 06/21/20 23:29 05:00 05:20 WBC RBC Hgb Hct MCHC RDW Plt Count Lymph % (Auto) [place] % (Auto) Lymph # (Auto) [place] # (Auto) Eos # (Auto) Seg Neutrophils % Seg Neuts % (Manual) Lymphocytes % (Manual) Monocytes % (Manual) Nucleated RBC % Seg Neutrophils # Seg Neutrophils # Man Lymphocytes # (Manual) Monocytes # (Manual) Eosinophils # (Manual) PT INR APTT D-Dimer Heparin Anti-Xa Level ABG pH POC ABG pCO2 POC ABG pO2 ABG pO2 ABG HCO3 ABG Hemoglobin ABG Oxyhemoglobin ABG Sodium ABG Potassium ABG Chloride ABG Glucose Carboxyhemoglobin Sodium Potassium Chloride 112.0 H Carbon Dioxide 20 L BUN 92 H Creatinine 3.9 H D Glucose 214 H POC Glucose 145 H 191 H Lactic Acid Calcium 6.5 L D Phosphorus Magnesium Ferritin Direct Bilirubin AST 98 H ALT 84 H Alkaline Phosphatase Lactate Dehydrogenase Total Creatine Kinase C-Reactive Protein Total Protein 4.6 L Albumin 2.1 L Triglycerides 180 H Arterial Blood Glucose Arterial Blood Ionized Calcium Urine Creatinine Urine Chloride Vancomycin Trough Coronavirus (PCR) Crossmatch 06/21/20 06/21/20 06/21/20 08:56 11:12 12:43 WBC RBC Hgb Hct MCHC RDW Plt Count Lymph % (Auto) [place] % (Auto) Lymph # (Auto) [place] # (Auto) Eos # (Auto) Seg Neutrophils % Seg Neuts % (Manual) Lymphocytes % (Manual) Monocytes % (Manual) Nucleated RBC % Seg Neutrophils # Seg Neutrophils # Man Lymphocytes # (Manual) Monocytes # (Manual) Eosinophils # (Manual) PT INR APTT D-Dimer Heparin Anti-Xa Level 0.28 L ABG pH 7.184 L POC ABG pCO2 48.3 H POC ABG pO2 172.1 H ABG pO2 ABG HCO3 ABG Hemoglobin ABG Oxyhemoglobin 98.7 H ABG Sodium ABG Potassium 4.9 H ABG Chloride 112.0 H ABG Glucose 196 H Carboxyhemoglobin 0.2 L Sodium Potassium Chloride Carbon Dioxide BUN Creatinine Glucose POC Glucose 177 H Lactic Acid Calcium Phosphorus Magnesium Ferritin Direct Bilirubin AST ALT Alkaline Phosphatase Lactate Dehydrogenase Total Creatine Kinase C-Reactive Protein Total Protein Albumin Triglycerides Arterial Blood Glucose 196 H Arterial Blood Ionized Calcium 4.1 L Urine Creatinine Urine Chloride Vancomycin Trough Coronavirus (PCR) Crossmatch 06/21/20 06/21/20 06/22/20 16:31 Unknown 00:12 WBC RBC Hgb Hct MCHC RDW Plt Count Lymph % (Auto) [place] % (Auto) Lymph # (Auto) [place] # (Auto) Eos # (Auto) Seg Neutrophils % Seg Neuts % (Manual) Lymphocytes % (Manual) Monocytes % (Manual) Nucleated RBC % Seg Neutrophils # Seg Neutrophils # Man Lymphocytes # (Manual) Monocytes # (Manual) Eosinophils # (Manual) PT INR APTT D-Dimer Heparin Anti-Xa Level 0.78 H ABG pH POC ABG pCO2 POC ABG pO2 ABG pO2 ABG HCO3 ABG Hemoglobin ABG Oxyhemoglobin ABG Sodium ABG Potassium ABG Chloride ABG Glucose Carboxyhemoglobin Sodium Potassium Chloride Carbon Dioxide BUN Creatinine Glucose POC Glucose 150 H 173 H Lactic Acid Calcium Phosphorus Magnesium Ferritin Direct Bilirubin AST ALT Alkaline Phosphatase Lactate Dehydrogenase Total Creatine Kinase C-Reactive Protein Total Protein Albumin Triglycerides Arterial Blood Glucose Arterial Blood Ionized Calcium Urine Creatinine Urine Chloride Vancomycin Trough Coronavirus (PCR) Crossmatch 06/22/20 06/22/20 06/22/20 04:00 05:04 05:30 WBC 33.9 H RBC Hgb 11.7 L Hct 35.2 L MCHC RDW 15.8 H Plt Count Lymph % (Auto) [place] % (Auto) Lymph # (Auto) [place] # (Auto) Eos # (Auto) Seg Neutrophils % Seg Neuts % (Manual) 93.0 H Lymphocytes % (Manual) 5.0 L Monocytes % (Manual) Nucleated RBC % Seg Neutrophils # Seg Neutrophils # Man 31.5 H Lymphocytes # (Manual) Monocytes # (Manual) Eosinophils # (Manual) PT INR APTT D-Dimer Heparin Anti-Xa Level ABG pH 7.169 L POC ABG pCO2 POC ABG pO2 ABG pO2 ABG HCO3 ABG Hemoglobin ABG Oxyhemoglobin ABG Sodium ABG Potassium 5.1 H ABG Chloride 112.0 H ABG Glucose 186 H Carboxyhemoglobin 0.3 L Sodium Potassium Chloride Carbon Dioxide BUN Creatinine Glucose POC Glucose 161 H Lactic Acid Calcium Phosphorus Magnesium Ferritin Direct Bilirubin AST ALT Alkaline Phosphatase Lactate Dehydrogenase Total Creatine Kinase C-Reactive Protein Total Protein Albumin Triglycerides Arterial Blood Glucose 186 H Arterial Blood Ionized Calcium 4.1 L Urine Creatinine Urine Chloride Vancomycin Trough Coronavirus (PCR) Crossmatch 06/22/20 06/22/20 06/22/20 05:30 11:39 13:27 WBC RBC Hgb Hct MCHC RDW Plt Count Lymph % (Auto) [place] % (Auto) Lymph # (Auto) [place] # (Auto) Eos # (Auto) Seg Neutrophils % Seg Neuts % (Manual) Lymphocytes % (Manual) Monocytes % (Manual) Nucleated RBC % Seg Neutrophils # Seg Neutrophils # Man Lymphocytes # (Manual) Monocytes # (Manual) Eosinophils # (Manual) PT INR APTT D-Dimer Heparin Anti-Xa Level ABG pH POC ABG pCO2 POC ABG pO2 ABG pO2 ABG HCO3 ABG Hemoglobin ABG Oxyhemoglobin ABG Sodium ABG Potassium ABG Chloride ABG Glucose Carboxyhemoglobin Sodium Potassium 5.7 H Chloride 111.3 H Carbon Dioxide 18 L BUN 112 H Creatinine 5.0 H Glucose 173 H POC Glucose 172 H 176 H Lactic Acid Calcium 6.7 L Phosphorus Magnesium Ferritin Direct Bilirubin AST ALT Alkaline Phosphatase Lactate Dehydrogenase Total Creatine Kinase C-Reactive Protein Total Protein Albumin Triglycerides Arterial Blood Glucose Arterial Blood Ionized Calcium Urine Creatinine Urine Chloride Vancomycin Trough Coronavirus (PCR) Crossmatch 06/22/20 06/22/20 06/22/20 14:37 17:00 17:40 WBC RBC Hgb Hct MCHC RDW Plt Count Lymph % (Auto) [place] % (Auto) Lymph # (Auto) [place] # (Auto) Eos # (Auto) Seg Neutrophils % Seg Neuts % (Manual) Lymphocytes % (Manual) Monocytes % (Manual) Nucleated RBC % Seg Neutrophils # Seg Neutrophils # Man Lymphocytes # (Manual) Monocytes # (Manual) Eosinophils # (Manual) PT INR APTT D-Dimer Heparin Anti-Xa Level 1.32 H ABG pH POC ABG pCO2 POC ABG pO2 ABG pO2 ABG HCO3 ABG Hemoglobin ABG Oxyhemoglobin ABG Sodium ABG Potassium ABG Chloride ABG Glucose Carboxyhemoglobin Sodium Potassium Chloride Carbon Dioxide BUN Creatinine Glucose POC Glucose 171 H Lactic Acid Calcium Phosphorus Magnesium Ferritin Direct Bilirubin AST ALT Alkaline Phosphatase Lactate Dehydrogenase Total Creatine Kinase C-Reactive Protein 5.30 H Total Protein Albumin Triglycerides Arterial Blood Glucose Arterial Blood Ionized Calcium Urine Creatinine Urine Chloride Vancomycin Trough Coronavirus (PCR) Crossmatch 06/22/20 06/23/20 06/23/20 23:36 02:13 02:41 WBC RBC Hgb Hct MCHC RDW Plt Count Lymph % (Auto) [place] % (Auto) Lymph # (Auto) [place] # (Auto) Eos # (Auto) Seg Neutrophils % Seg Neuts % (Manual) Lymphocytes % (Manual) Monocytes % (Manual) Nucleated RBC % Seg Neutrophils # Seg Neutrophils # Man Lymphocytes # (Manual) Monocytes # (Manual) Eosinophils # (Manual) PT INR APTT D-Dimer Heparin Anti-Xa Level 0.21 L ABG pH 7.318 L POC ABG pCO2 POC ABG pO2 157.5 H ABG pO2 ABG HCO3 ABG Hemoglobin ABG Oxyhemoglobin ABG Sodium 135.6 L ABG Potassium 4.6 H ABG Chloride 110.0 H ABG Glucose 169 H Carboxyhemoglobin Sodium Potassium Chloride Carbon Dioxide BUN Creatinine Glucose POC Glucose 155 H Lactic Acid Calcium Phosphorus Magnesium Ferritin Direct Bilirubin AST ALT Alkaline Phosphatase Lactate Dehydrogenase Total Creatine Kinase C-Reactive Protein Total Protein Albumin Triglycerides Arterial Blood Glucose 169 H Arterial Blood Ionized Calcium Urine Creatinine Urine Chloride Vancomycin Trough Coronavirus (PCR) Crossmatch 06/23/20 06/23/20 06/23/20 04:00 04:00 05:24 WBC 27.4 H RBC Hgb 11.3 L Hct 33.8 L MCHC RDW Plt Count Lymph % (Auto) [place] % (Auto) Lymph # (Auto) [place] # (Auto) Eos # (Auto) Seg Neutrophils % Seg Neuts % (Manual) 93.0 H Lymphocytes % (Manual) 1.0 L Monocytes % (Manual) Nucleated RBC % 1.0 H Seg Neutrophils # Seg Neutrophils # Man 25.5 H Lymphocytes # (Manual) 0.3 L Monocytes # (Manual) 1.1 H Eosinophils # (Manual) PT INR APTT D-Dimer Heparin Anti-Xa Level ABG pH POC ABG pCO2 POC ABG pO2 ABG pO2 ABG HCO3 ABG Hemoglobin ABG Oxyhemoglobin ABG Sodium ABG Potassium ABG Chloride ABG Glucose Carboxyhemoglobin Sodium Potassium Chloride 107.6 H Carbon Dioxide 20 L BUN 100 H Creatinine 4.7 H Glucose 168 H POC Glucose 151 H Lactic Acid Calcium Phosphorus Magnesium Ferritin Direct Bilirubin AST ALT Alkaline Phosphatase Lactate Dehydrogenase Total Creatine Kinase C-Reactive Protein Total Protein Albumin Triglycerides Arterial Blood Glucose Arterial Blood Ionized Calcium Urine Creatinine Urine Chloride Vancomycin Trough Coronavirus (PCR) Crossmatch 06/23/20 06/23/20 06/23/20 11:30 17:18 23:50 WBC RBC Hgb Hct MCHC RDW Plt Count Lymph % (Auto) [place] % (Auto) Lymph # (Auto) [place] # (Auto) Eos # (Auto) Seg Neutrophils % Seg Neuts % (Manual) Lymphocytes % (Manual) Monocytes % (Manual) Nucleated RBC % Seg Neutrophils # Seg Neutrophils # Man Lymphocytes # (Manual) Monocytes # (Manual) Eosinophils # (Manual) PT INR APTT D-Dimer Heparin Anti-Xa Level ABG pH POC ABG pCO2 POC ABG pO2 ABG pO2 ABG HCO3 ABG Hemoglobin ABG Oxyhemoglobin ABG Sodium ABG Potassium ABG Chloride ABG Glucose Carboxyhemoglobin Sodium Potassium Chloride Carbon Dioxide BUN Creatinine Glucose POC Glucose 157 H 156 H 162 H Lactic Acid Calcium Phosphorus Magnesium Ferritin Direct Bilirubin AST ALT Alkaline Phosphatase Lactate Dehydrogenase Total Creatine Kinase C-Reactive Protein Total Protein Albumin Triglycerides Arterial Blood Glucose Arterial Blood Ionized Calcium Urine Creatinine Urine Chloride Vancomycin Trough Coronavirus (PCR) Crossmatch 06/24/20 06/24/20 06/24/20 04:41 05:57 06:30 WBC 34.3 H RBC Hgb 10.9 L Hct 32.6 L MCHC RDW Plt Count Lymph % (Auto) 2.0 L [place] % (Auto) Lymph # (Auto) 0.7 L [place] # (Auto) 1.2 H Eos # (Auto) Seg Neutrophils % Seg Neuts % (Manual) 96.0 H Lymphocytes % (Manual) 3.0 L Monocytes % (Manual) Nucleated RBC % Seg Neutrophils # 32.3 H Seg Neutrophils # Man 32.9 H Lymphocytes # (Manual) 1.0 L Monocytes # (Manual) Eosinophils # (Manual) PT INR APTT D-Dimer Heparin Anti-Xa Level ABG pH POC ABG pCO2 POC ABG pO2 71.1 L ABG pO2 ABG HCO3 ABG Hemoglobin ABG Oxyhemoglobin 92.4 L ABG Sodium 115.6 L ABG Potassium ABG Chloride ABG Glucose 159 H Carboxyhemoglobin Sodium Potassium Chloride Carbon Dioxide BUN Creatinine Glucose POC Glucose 143 H Lactic Acid Calcium Phosphorus Magnesium Ferritin Direct Bilirubin AST ALT Alkaline Phosphatase Lactate Dehydrogenase Total Creatine Kinase C-Reactive Protein Total Protein Albumin Triglycerides Arterial Blood Glucose 159 H Arterial Blood Ionized Calcium 4.2 L Urine Creatinine Urine Chloride Vancomycin Trough Coronavirus (PCR) Crossmatch 06/24/20 06/24/20 06/24/20 07:03 09:37 11:56 WBC RBC Hgb Hct MCHC RDW Plt Count Lymph % (Auto) [place] % (Auto) Lymph # (Auto) [place] # (Auto) Eos # (Auto) Seg Neutrophils % Seg Neuts % (Manual) Lymphocytes % (Manual) Monocytes % (Manual) Nucleated RBC % Seg Neutrophils # Seg Neutrophils # Man Lymphocytes # (Manual) Monocytes # (Manual) Eosinophils # (Manual) PT INR APTT D-Dimer Heparin Anti-Xa Level 0.26 L ABG pH POC ABG pCO2 POC ABG pO2 ABG pO2 ABG HCO3 ABG Hemoglobin ABG Oxyhemoglobin ABG Sodium ABG Potassium ABG Chloride ABG Glucose Carboxyhemoglobin Sodium Potassium 5.1 H Chloride Carbon Dioxide BUN 103 H Creatinine 5.0 H Glucose 163 H POC Glucose 149 H Lactic Acid Calcium 7.6 L Phosphorus Magnesium Ferritin Direct Bilirubin AST ALT Alkaline Phosphatase Lactate Dehydrogenase Total Creatine Kinase C-Reactive Protein Total Protein Albumin Triglycerides Arterial Blood Glucose Arterial Blood Ionized Calcium Urine Creatinine Urine Chloride Vancomycin Trough Coronavirus (PCR) Crossmatch 06/24/20 06/25/20 06/25/20 18:09 01:05 03:00 WBC RBC Hgb 10.6 L Hct 32.1 L MCHC RDW Plt Count Lymph % (Auto) [place] % (Auto) Lymph # (Auto) [place] # (Auto) Eos # (Auto) Seg Neutrophils % Seg Neuts % (Manual) Lymphocytes % (Manual) Monocytes % (Manual) Nucleated RBC % Seg Neutrophils # Seg Neutrophils # Man Lymphocytes # (Manual) Monocytes # (Manual) Eosinophils # (Manual) PT INR APTT D-Dimer Heparin Anti-Xa Level ABG pH POC ABG pCO2 POC ABG pO2 ABG pO2 ABG HCO3 ABG Hemoglobin ABG Oxyhemoglobin ABG Sodium ABG Potassium ABG Chloride ABG Glucose Carboxyhemoglobin Sodium Potassium Chloride Carbon Dioxide BUN Creatinine Glucose POC Glucose 141 H 137 H Lactic Acid Calcium Phosphorus Magnesium Ferritin Direct Bilirubin AST ALT Alkaline Phosphatase Lactate Dehydrogenase Total Creatine Kinase C-Reactive Protein Total Protein Albumin Triglycerides Arterial Blood Glucose Arterial Blood Ionized Calcium Urine Creatinine Urine Chloride Vancomycin Trough Coronavirus (PCR) Crossmatch 06/25/20 06/25/20 06/25/20 03:48 05:17 12:08 WBC RBC Hgb Hct MCHC RDW Plt Count Lymph % (Auto) [place] % (Auto) Lymph # (Auto) [place] # (Auto) Eos # (Auto) Seg Neutrophils % Seg Neuts % (Manual) Lymphocytes % (Manual) Monocytes % (Manual) Nucleated RBC % Seg Neutrophils # Seg Neutrophils # Man Lymphocytes # (Manual) Monocytes # (Manual) Eosinophils # (Manual) PT INR APTT D-Dimer Heparin Anti-Xa Level ABG pH POC ABG pCO2 29.4 L POC ABG pO2 67.1 L ABG pO2 ABG HCO3 ABG Hemoglobin 11.5 L ABG Oxyhemoglobin ABG Sodium 124.1 L ABG Potassium 4.6 H ABG Chloride ABG Glucose 159 H Carboxyhemoglobin Sodium Potassium Chloride Carbon Dioxide BUN Creatinine Glucose POC Glucose 149 H 150 H Lactic Acid Calcium Phosphorus Magnesium Ferritin Direct Bilirubin AST ALT Alkaline Phosphatase Lactate Dehydrogenase Total Creatine Kinase C-Reactive Protein Total Protein Albumin Triglycerides Arterial Blood Glucose 159 H Arterial Blood Ionized Calcium 4.2 L Urine Creatinine Urine Chloride Vancomycin Trough Coronavirus (PCR) Crossmatch 06/25/20 06/25/20 06/25/20 16:27 16:35 17:27 WBC RBC Hgb Hct MCHC RDW Plt Count Lymph % (Auto) [place] % (Auto) Lymph # (Auto) [place] # (Auto) Eos # (Auto) Seg Neutrophils % Seg Neuts % (Manual) Lymphocytes % (Manual) Monocytes % (Manual) Nucleated RBC % Seg Neutrophils # Seg Neutrophils # Man Lymphocytes # (Manual) Monocytes # (Manual) Eosinophils # (Manual) PT INR APTT D-Dimer Heparin Anti-Xa Level < 0.10 L ABG pH POC ABG pCO2 POC ABG pO2 ABG pO2 ABG HCO3 ABG Hemoglobin ABG Oxyhemoglobin ABG Sodium ABG Potassium ABG Chloride ABG Glucose Carboxyhemoglobin Sodium Potassium Chloride Carbon Dioxide BUN Creatinine Glucose POC Glucose 143 H 156 H Lactic Acid Calcium Phosphorus Magnesium Ferritin Direct Bilirubin AST ALT Alkaline Phosphatase Lactate Dehydrogenase Total Creatine Kinase C-Reactive Protein Total Protein Albumin Triglycerides Arterial Blood Glucose Arterial Blood Ionized Calcium Urine Creatinine Urine Chloride Vancomycin Trough Coronavirus (PCR) Crossmatch 06/25/20 06/25/20 06/25/20 20:00 20:55 23:10 WBC 32.7 H RBC 3.06 L Hgb 9.0 L 9.5 L Hct 26.7 L 28.6 L MCHC RDW Plt Count Lymph % (Auto) [place] % (Auto) Lymph # (Auto) [place] # (Auto) Eos # (Auto) Seg Neutrophils % Seg Neuts % (Manual) Lymphocytes % (Manual) 2.0 L Monocytes % (Manual) Nucleated RBC % Seg Neutrophils # Seg Neutrophils # Man 30.7 H Lymphocytes # (Manual) 0.7 L Monocytes # (Manual) 1.3 H Eosinophils # (Manual) PT 17.7 H INR 1.47 H APTT 65.8 H* D-Dimer Heparin Anti-Xa Level ABG pH POC ABG pCO2 POC ABG pO2 ABG pO2 ABG HCO3 ABG Hemoglobin ABG Oxyhemoglobin ABG Sodium ABG Potassium ABG Chloride ABG Glucose Carboxyhemoglobin Sodium Potassium Chloride Carbon Dioxide BUN Creatinine Glucose POC Glucose Lactic Acid Calcium Phosphorus Magnesium Ferritin Direct Bilirubin AST ALT Alkaline Phosphatase Lactate Dehydrogenase Total Creatine Kinase C-Reactive Protein Total Protein Albumin Triglycerides Arterial Blood Glucose Arterial Blood Ionized Calcium Urine Creatinine Urine Chloride Vancomycin Trough Coronavirus (PCR) Crossmatch 06/25/20 06/26/20 06/26/20 23:14 01:30 03:25 WBC RBC Hgb Hct MCHC RDW Plt Count Lymph % (Auto) [place] % (Auto) Lymph # (Auto) [place] # (Auto) Eos # (Auto) Seg Neutrophils % Seg Neuts % (Manual) Lymphocytes % (Manual) Monocytes % (Manual) Nucleated RBC % Seg Neutrophils # Seg Neutrophils # Man Lymphocytes # (Manual) Monocytes # (Manual) Eosinophils # (Manual) PT INR APTT D-Dimer Heparin Anti-Xa Level < 0.10 L ABG pH POC ABG pCO2 POC ABG pO2 ABG pO2 ABG HCO3 ABG Hemoglobin 11.8 L ABG Oxyhemoglobin ABG Sodium 127.1 L ABG Potassium 5.4 H ABG Chloride ABG Glucose 155 H Carboxyhemoglobin 0.3 L Sodium Potassium Chloride Carbon Dioxide BUN Creatinine Glucose POC Glucose 148 H Lactic Acid Calcium Phosphorus Magnesium Ferritin Direct Bilirubin AST ALT Alkaline Phosphatase Lactate Dehydrogenase Total Creatine Kinase C-Reactive Protein Total Protein Albumin Triglycerides Arterial Blood Glucose 155 H Arterial Blood Ionized Calcium 4.2 L Urine Creatinine Urine Chloride Vancomycin Trough Coronavirus (PCR) Crossmatch 06/26/20 06/26/20 06/26/20 03:59 05:14 05:47 WBC 36.5 H RBC 3.26 L Hgb 9.7 L Hct 28.2 L MCHC RDW Plt Count Lymph % (Auto) [place] % (Auto) Lymph # (Auto) [place] # (Auto) Eos # (Auto) Seg Neutrophils % Seg Neuts % (Manual) 92.0 H Lymphocytes % (Manual) 4.0 L Monocytes % (Manual) Nucleated RBC % Seg Neutrophils # Seg Neutrophils # Man 33.6 H Lymphocytes # (Manual) Monocytes # (Manual) Eosinophils # (Manual) PT INR APTT D-Dimer Heparin Anti-Xa Level ABG pH POC ABG pCO2 POC ABG pO2 ABG pO2 ABG HCO3 ABG Hemoglobin ABG Oxyhemoglobin ABG Sodium ABG Potassium ABG Chloride ABG Glucose Carboxyhemoglobin Sodium Potassium 5.9 H Chloride Carbon Dioxide 20 L BUN 144 H Creatinine 6.4 H Glucose 149 H POC Glucose 128 H Lactic Acid Calcium 7.6 L Phosphorus Magnesium Ferritin Direct Bilirubin AST ALT Alkaline Phosphatase Lactate Dehydrogenase Total Creatine Kinase C-Reactive Protein Total Protein Albumin Triglycerides Arterial Blood Glucose Arterial Blood Ionized Calcium Urine Creatinine Urine Chloride Vancomycin Trough Coronavirus (PCR) Crossmatch 06/26/20 06/26/20 06/26/20 05:47 12:47 17:42 WBC RBC Hgb Hct MCHC RDW Plt Count Lymph % (Auto) [place] % (Auto) Lymph # (Auto) [place] # (Auto) Eos # (Auto) Seg Neutrophils % Seg Neuts % (Manual) Lymphocytes % (Manual) Monocytes % (Manual) Nucleated RBC % Seg Neutrophils # Seg Neutrophils # Man Lymphocytes # (Manual) Monocytes # (Manual) Eosinophils # (Manual) PT 17.4 H INR 1.44 H APTT D-Dimer Heparin Anti-Xa Level ABG pH POC ABG pCO2 POC ABG pO2 ABG pO2 ABG HCO3 ABG Hemoglobin ABG Oxyhemoglobin ABG Sodium ABG Potassium ABG Chloride ABG Glucose Carboxyhemoglobin Sodium Potassium Chloride Carbon Dioxide BUN Creatinine Glucose POC Glucose 124 H 127 H Lactic Acid Calcium Phosphorus Magnesium Ferritin Direct Bilirubin AST ALT Alkaline Phosphatase Lactate Dehydrogenase Total Creatine Kinase C-Reactive Protein Total Protein Albumin Triglycerides Arterial Blood Glucose Arterial Blood Ionized Calcium Urine Creatinine Urine Chloride Vancomycin Trough Coronavirus (PCR) Crossmatch 06/26/20 06/27/20 06/27/20 23:30 03:32 04:00 WBC RBC Hgb 8.7 L Hct 26.4 L MCHC RDW Plt Count Lymph % (Auto) [place] % (Auto) Lymph # (Auto) [place] # (Auto) Eos # (Auto) Seg Neutrophils % Seg Neuts % (Manual) Lymphocytes % (Manual) Monocytes % (Manual) Nucleated RBC % Seg Neutrophils # Seg Neutrophils # Man Lymphocytes # (Manual) Monocytes # (Manual) Eosinophils # (Manual) PT INR APTT D-Dimer Heparin Anti-Xa Level ABG pH 7.298 L POC ABG pCO2 POC ABG pO2 ABG pO2 ABG HCO3 ABG Hemoglobin 9.6 L ABG Oxyhemoglobin ABG Sodium 124.4 L ABG Potassium 6.6 H ABG Chloride ABG Glucose 136 H Carboxyhemoglobin Sodium Potassium Chloride Carbon Dioxide BUN Creatinine Glucose POC Glucose 123 H Lactic Acid Calcium Phosphorus Magnesium Ferritin Direct Bilirubin AST ALT Alkaline Phosphatase Lactate Dehydrogenase Total Creatine Kinase C-Reactive Protein Total Protein Albumin Triglycerides Arterial Blood Glucose 136 H Arterial Blood Ionized Calcium 4.1 L Urine Creatinine Urine Chloride Vancomycin Trough Coronavirus (PCR) Crossmatch 06/27/20 06/27/20 06/27/20 05:26 10:14 11:58 WBC RBC Hgb Hct MCHC RDW Plt Count Lymph % (Auto) [place] % (Auto) Lymph # (Auto) [place] # (Auto) Eos # (Auto) Seg Neutrophils % Seg Neuts % (Manual) Lymphocytes % (Manual) Monocytes % (Manual) Nucleated RBC % Seg Neutrophils # Seg Neutrophils # Man Lymphocytes # (Manual) Monocytes # (Manual) Eosinophils # (Manual) PT INR APTT D-Dimer Heparin Anti-Xa Level ABG pH POC ABG pCO2 POC ABG pO2 ABG pO2 ABG HCO3 ABG Hemoglobin ABG Oxyhemoglobin ABG Sodium ABG Potassium ABG Chloride ABG Glucose Carboxyhemoglobin Sodium 136 L Potassium 7.0 H* Chloride 97.8 L Carbon Dioxide BUN 172 H Creatinine 7.4 H Glucose 129 H POC Glucose 124 H 115 H Lactic Acid Calcium 7.6 L Phosphorus Magnesium Ferritin Direct Bilirubin AST ALT Alkaline Phosphatase Lactate Dehydrogenase Total Creatine Kinase C-Reactive Protein Total Protein Albumin Triglycerides Arterial Blood Glucose Arterial Blood Ionized Calcium Urine Creatinine Urine Chloride Vancomycin Trough Coronavirus (PCR) Crossmatch 06/27/20 06/27/20 06/27/20 17:32 18:30 23:24 WBC RBC Hgb Hct MCHC RDW Plt Count Lymph % (Auto) [place] % (Auto) Lymph # (Auto) [place] # (Auto) Eos # (Auto) Seg Neutrophils % Seg Neuts % (Manual) Lymphocytes % (Manual) Monocytes % (Manual) Nucleated RBC % Seg Neutrophils # Seg Neutrophils # Man Lymphocytes # (Manual) Monocytes # (Manual) Eosinophils # (Manual) PT INR APTT D-Dimer Heparin Anti-Xa Level ABG pH POC ABG pCO2 POC ABG pO2 ABG pO2 ABG HCO3 ABG Hemoglobin ABG Oxyhemoglobin ABG Sodium ABG Potassium ABG Chloride ABG Glucose Carboxyhemoglobin Sodium Potassium 7.3 H* Chloride Carbon Dioxide BUN Creatinine Glucose POC Glucose 122 H 116 H Lactic Acid Calcium Phosphorus Magnesium Ferritin Direct Bilirubin AST ALT Alkaline Phosphatase Lactate Dehydrogenase Total Creatine Kinase C-Reactive Protein Total Protein Albumin Triglycerides Arterial Blood Glucose Arterial Blood Ionized Calcium Urine Creatinine Urine Chloride Vancomycin Trough Coronavirus (PCR) Crossmatch 06/28/20 06/28/20 06/28/20 00:00 02:16 05:37 WBC RBC Hgb Hct MCHC RDW Plt Count Lymph % (Auto) [place] % (Auto) Lymph # (Auto) [place] # (Auto) Eos # (Auto) Seg Neutrophils % Seg Neuts % (Manual) Lymphocytes % (Manual) Monocytes % (Manual) Nucleated RBC % Seg Neutrophils # Seg Neutrophils # Man Lymphocytes # (Manual) Monocytes # (Manual) Eosinophils # (Manual) PT INR APTT D-Dimer Heparin Anti-Xa Level ABG pH POC ABG pCO2 POC ABG pO2 79.0 L ABG pO2 ABG HCO3 ABG Hemoglobin 11.7 L ABG Oxyhemoglobin ABG Sodium 128.1 L ABG Potassium 6.6 H ABG Chloride ABG Glucose 124 H Carboxyhemoglobin Sodium Potassium 7.3 H* Chloride Carbon Dioxide BUN Creatinine Glucose POC Glucose 115 H Lactic Acid Calcium Phosphorus Magnesium Ferritin Direct Bilirubin AST ALT Alkaline Phosphatase Lactate Dehydrogenase Total Creatine Kinase C-Reactive Protein Total Protein Albumin Triglycerides Arterial Blood Glucose 124 H Arterial Blood Ionized Calcium 4.2 L Urine Creatinine Urine Chloride Vancomycin Trough Coronavirus (PCR) Crossmatch 06/28/20 06/28/20 06/28/20 10:03 10:03 11:51 WBC 33.6 H RBC 3.03 L Hgb 8.9 L Hct 27.0 L MCHC RDW Plt Count Lymph % (Auto) [place] % (Auto) Lymph # (Auto) [place] # (Auto) Eos # (Auto) Seg Neutrophils % Seg Neuts % (Manual) Lymphocytes % (Manual) Monocytes % (Manual) Nucleated RBC % Seg Neutrophils # Seg Neutrophils # Man Lymphocytes # (Manual) Monocytes # (Manual) Eosinophils # (Manual) PT INR APTT D-Dimer Heparin Anti-Xa Level ABG pH POC ABG pCO2 POC ABG pO2 ABG pO2 ABG HCO3 ABG Hemoglobin ABG Oxyhemoglobin ABG Sodium ABG Potassium ABG Chloride ABG Glucose Carboxyhemoglobin Sodium 136 L Potassium 6.5 H* Chloride Carbon Dioxide 20 L BUN 129 H Creatinine 5.8 H Glucose 113 H POC Glucose 107 H Lactic Acid Calcium 7.6 L Phosphorus Magnesium Ferritin Direct Bilirubin AST ALT Alkaline Phosphatase Lactate Dehydrogenase Total Creatine Kinase C-Reactive Protein Total Protein Albumin Triglycerides Arterial Blood Glucose Arterial Blood Ionized Calcium Urine Creatinine Urine Chloride Vancomycin Trough Coronavirus (PCR) Crossmatch 06/28/20 06/28/20 06/29/20 17:45 Unknown 03:15 WBC RBC Hgb Hct MCHC RDW Plt Count Lymph % (Auto) [place] % (Auto) Lymph # (Auto) [place] # (Auto) Eos # (Auto) Seg Neutrophils % Seg Neuts % (Manual) Lymphocytes % (Manual) Monocytes % (Manual) Nucleated RBC % Seg Neutrophils # Seg Neutrophils # Man Lymphocytes # (Manual) Monocytes # (Manual) Eosinophils # (Manual) PT INR APTT D-Dimer Heparin Anti-Xa Level ABG pH POC ABG pCO2 POC ABG pO2 ABG pO2 ABG HCO3 ABG Hemoglobin 7.8 L ABG Oxyhemoglobin ABG Sodium 127.4 L ABG Potassium 5.5 H ABG Chloride 97.0 L ABG Glucose 96 H Carboxyhemoglobin Sodium Potassium 5.4 H Chloride Carbon Dioxide BUN Creatinine Glucose POC Glucose 117 H Lactic Acid Calcium Phosphorus Magnesium Ferritin Direct Bilirubin AST ALT Alkaline Phosphatase Lactate Dehydrogenase Total Creatine Kinase C-Reactive Protein Total Protein Albumin Triglycerides Arterial Blood Glucose 96 H Arterial Blood Ionized Calcium 4.0 L Urine Creatinine Urine Chloride Vancomycin Trough Coronavirus (PCR) Crossmatch 06/29/20 06/29/20 06/29/20 03:45 Unknown Unknown WBC RBC Hgb Hct MCHC RDW Plt Count Lymph % (Auto) [place] % (Auto) Lymph # (Auto) [place] # (Auto) Eos # (Auto) Seg Neutrophils % Seg Neuts % (Manual) Lymphocytes % (Manual) Monocytes % (Manual) Nucleated RBC % Seg Neutrophils # Seg Neutrophils # Man Lymphocytes # (Manual) Monocytes # (Manual) Eosinophils # (Manual) PT INR APTT D-Dimer Heparin Anti-Xa Level ABG pH POC ABG pCO2 POC ABG pO2 ABG pO2 ABG HCO3 ABG Hemoglobin ABG Oxyhemoglobin ABG Sodium ABG Potassium ABG Chloride ABG Glucose Carboxyhemoglobin Sodium 135 L Potassium 6.0 H 6.1 H* Chloride 94.8 L Carbon Dioxide BUN 109 H 114 H Creatinine 5.5 H Glucose POC Glucose Lactic Acid Calcium 7.4 L Phosphorus Magnesium Ferritin Direct Bilirubin AST 47 H ALT Alkaline Phosphatase Lactate Dehydrogenase Total Creatine Kinase C-Reactive Protein Total Protein 4.9 L Albumin 2.2 L Triglycerides Arterial Blood Glucose Arterial Blood Ionized Calcium Urine Creatinine Urine Chloride Vancomycin Trough Coronavirus (PCR) Crossmatch 06/29/20 06/29/20 06/30/20 Unknown Unknown 03:32 WBC 20.7 H RBC 2.57 L Hgb 7.6 L Hct 23.0 L MCHC RDW Plt Count Lymph % (Auto) [place] % (Auto) Lymph # (Auto) [place] # (Auto) Eos # (Auto) Seg Neutrophils % Seg Neuts % (Manual) Lymphocytes % (Manual) Monocytes % (Manual) Nucleated RBC % Seg Neutrophils # Seg Neutrophils # Man Lymphocytes # (Manual) Monocytes # (Manual) Eosinophils # (Manual) PT INR APTT D-Dimer Heparin Anti-Xa Level ABG pH POC ABG pCO2 POC ABG pO2 ABG pO2 ABG HCO3 ABG Hemoglobin 11.4 L ABG Oxyhemoglobin ABG Sodium 130.1 L ABG Potassium 5.0 H ABG Chloride ABG Glucose Carboxyhemoglobin Sodium Potassium Chloride Carbon Dioxide BUN Creatinine Glucose POC Glucose Lactic Acid Calcium Phosphorus Magnesium Ferritin Direct Bilirubin AST ALT Alkaline Phosphatase Lactate Dehydrogenase Total Creatine Kinase 618 H C-Reactive Protein Total Protein Albumin Triglycerides Arterial Blood Glucose Arterial Blood Ionized Calcium 3.9 L Urine Creatinine Urine Chloride Vancomycin Trough Coronavirus (PCR) Crossmatch 06/30/20 06/30/20 06/30/20 03:50 03:50 11:39 WBC 13.1 H RBC Hgb Hct MCHC RDW Plt Count Lymph % (Auto) [place] % (Auto) Lymph # (Auto) [place] # (Auto) Eos # (Auto) Seg Neutrophils % Seg Neuts % (Manual) 95.0 H Lymphocytes % (Manual) 3.0 L Monocytes % (Manual) Nucleated RBC % Seg Neutrophils # Seg Neutrophils # Man 12.4 H Lymphocytes # (Manual) 0.4 L Monocytes # (Manual) Eosinophils # (Manual) PT INR APTT D-Dimer Heparin Anti-Xa Level ABG pH POC ABG pCO2 POC ABG pO2 ABG pO2 ABG HCO3 ABG Hemoglobin ABG Oxyhemoglobin ABG Sodium ABG Potassium ABG Chloride ABG Glucose Carboxyhemoglobin Sodium 135 L Potassium 5.4 H D Chloride 93.6 L Carbon Dioxide BUN 85 H Creatinine 4.6 H Glucose POC Glucose 111 H Lactic Acid Calcium 7.1 L Phosphorus 9.40 H Magnesium Ferritin Direct Bilirubin AST ALT Alkaline Phosphatase Lactate Dehydrogenase Total Creatine Kinase C-Reactive Protein Total Protein Albumin Triglycerides Arterial Blood Glucose Arterial Blood Ionized Calcium Urine Creatinine Urine Chloride Vancomycin Trough Coronavirus (PCR) Crossmatch 06/30/20 06/30/20 07/01/20 13:12 Unknown 03:19 WBC RBC Hgb 7.8 L D Hct 23.2 L D MCHC RDW Plt Count Lymph % (Auto) [place] % (Auto) Lymph # (Auto) [place] # (Auto) Eos # (Auto) Seg Neutrophils % Seg Neuts % (Manual) Lymphocytes % (Manual) Monocytes % (Manual) Nucleated RBC % Seg Neutrophils # Seg Neutrophils # Man Lymphocytes # (Manual) Monocytes # (Manual) Eosinophils # (Manual) PT INR APTT D-Dimer Heparin Anti-Xa Level ABG pH 7.461 H POC ABG pCO2 POC ABG pO2 77.2 L ABG pO2 ABG HCO3 ABG Hemoglobin 6.9 L ABG Oxyhemoglobin ABG Sodium 128.5 L ABG Potassium ABG Chloride 97.0 L ABG Glucose Carboxyhemoglobin Sodium Potassium Chloride Carbon Dioxide BUN Creatinine Glucose POC Glucose Lactic Acid Calcium Phosphorus Magnesium Ferritin Direct Bilirubin AST ALT Alkaline Phosphatase Lactate Dehydrogenase Total Creatine Kinase C-Reactive Protein Total Protein Albumin Triglycerides Arterial Blood Glucose Arterial Blood Ionized Calcium 3.7 L Urine Creatinine Urine Chloride Vancomycin Trough Coronavirus (PCR) Positive A Crossmatch 07/01/20 07/01/20 07/01/20 06:00 06:00 11:04 WBC 16.7 H RBC 2.16 L Hgb 6.4 L Hct 19.2 L* MCHC RDW Plt Count Lymph % (Auto) [place] % (Auto) Lymph # (Auto) [place] # (Auto) Eos # (Auto) Seg Neutrophils % Seg Neuts % (Manual) Lymphocytes % (Manual) Monocytes % (Manual) Nucleated RBC % Seg Neutrophils # Seg Neutrophils # Man Lymphocytes # (Manual) Monocytes # (Manual) Eosinophils # (Manual) PT INR APTT D-Dimer Heparin Anti-Xa Level ABG pH POC ABG pCO2 POC ABG pO2 ABG pO2 ABG HCO3 ABG Hemoglobin ABG Oxyhemoglobin ABG Sodium ABG Potassium ABG Chloride ABG Glucose Carboxyhemoglobin Sodium 136 L Potassium Chloride 95.8 L Carbon Dioxide BUN 72 H Creatinine 4.3 H Glucose POC Glucose Lactic Acid Calcium 6.7 L Phosphorus Magnesium Ferritin Direct Bilirubin AST ALT Alkaline Phosphatase Lactate Dehydrogenase Total Creatine Kinase C-Reactive Protein Total Protein Albumin Triglycerides 250 H Arterial Blood Glucose Arterial Blood Ionized Calcium Urine Creatinine Urine Chloride Vancomycin Trough Coronavirus (PCR) Crossmatch See Detail 07/02/20 07/02/20 07/02/20 04:44 06:00 11:33 WBC 14.6 H RBC 2.47 L Hgb 7.4 L Hct 21.8 L MCHC RDW Plt Count Lymph % (Auto) [place] % (Auto) Lymph # (Auto) [place] # (Auto) Eos # (Auto) Seg Neutrophils % Seg Neuts % (Manual) Lymphocytes % (Manual) Monocytes % (Manual) Nucleated RBC % Seg Neutrophils # Seg Neutrophils # Man Lymphocytes # (Manual) Monocytes # (Manual) Eosinophils # (Manual) PT INR APTT D-Dimer Heparin Anti-Xa Level ABG pH 7.457 H POC ABG pCO2 POC ABG pO2 79.4 L ABG pO2 ABG HCO3 ABG Hemoglobin 8.5 L ABG Oxyhemoglobin ABG Sodium 128.4 L ABG Potassium ABG Chloride 97.0 L ABG Glucose 100 H Carboxyhemoglobin Sodium 133 L Potassium 5.2 H Chloride 93.3 L Carbon Dioxide BUN 66 H Creatinine 4.1 H Glucose 102 H POC Glucose Lactic Acid Calcium 7.2 L Phosphorus Magnesium Ferritin Direct Bilirubin AST ALT Alkaline Phosphatase Lactate Dehydrogenase Total Creatine Kinase C-Reactive Protein Total Protein Albumin Triglycerides Arterial Blood Glucose 100 H Arterial Blood Ionized Calcium 3.9 L Urine Creatinine Urine Chloride Vancomycin Trough Coronavirus (PCR) Crossmatch 07/02/20 07/03/20 07/03/20 11:33 03:54 09:15 WBC 16.6 H RBC 2.44 L Hgb 7.3 L Hct 21.4 L MCHC RDW Plt Count Lymph % (Auto) [place] % (Auto) Lymph # (Auto) [place] # (Auto) Eos # (Auto) Seg Neutrophils % Seg Neuts % (Manual) Lymphocytes % (Manual) Monocytes % (Manual) Nucleated RBC % Seg Neutrophils # Seg Neutrophils # Man Lymphocytes # (Manual) Monocytes # (Manual) Eosinophils # (Manual) PT INR APTT D-Dimer Heparin Anti-Xa Level ABG pH POC ABG pCO2 POC ABG pO2 66.1 L ABG pO2 ABG HCO3 ABG Hemoglobin 8.0 L ABG Oxyhemoglobin ABG Sodium 124.6 L ABG Potassium 5.5 H ABG Chloride 96.0 L ABG Glucose 111 H Carboxyhemoglobin Sodium Potassium Chloride Carbon Dioxide BUN Creatinine Glucose POC Glucose Lactic Acid Calcium Phosphorus Magnesium Ferritin Direct Bilirubin 0.7 H AST 94 H ALT 60 H Alkaline Phosphatase Lactate Dehydrogenase Total Creatine Kinase C-Reactive Protein Total Protein 4.4 L Albumin 1.9 L Triglycerides Arterial Blood Glucose 111 H Arterial Blood Ionized Calcium 3.8 L Urine Creatinine Urine Chloride Vancomycin Trough Coronavirus (PCR) Crossmatch 07/03/20 07/03/20 07/03/20 09:15 10:10 14:50 WBC RBC Hgb Hct MCHC RDW Plt Count Lymph % (Auto) [place] % (Auto) Lymph # (Auto) [place] # (Auto) Eos # (Auto) Seg Neutrophils % Seg Neuts % (Manual) Lymphocytes % (Manual) Monocytes % (Manual) Nucleated RBC % Seg Neutrophils # Seg Neutrophils # Man Lymphocytes # (Manual) Monocytes # (Manual) Eosinophils # (Manual) PT INR APTT D-Dimer 6608.00 H Heparin Anti-Xa Level ABG pH POC ABG pCO2 POC ABG pO2 ABG pO2 ABG HCO3 ABG Hemoglobin ABG Oxyhemoglobin ABG Sodium ABG Potassium ABG Chloride ABG Glucose Carboxyhemoglobin Sodium 133 L Potassium 6.2 H* Chloride 93.1 L Carbon Dioxide BUN 89 H Creatinine 5.1 H Glucose POC Glucose Lactic Acid Calcium 7.0 L Phosphorus Magnesium Ferritin Direct Bilirubin AST ALT Alkaline Phosphatase Lactate Dehydrogenase Total Creatine Kinase C-Reactive Protein Total Protein Albumin Triglycerides Arterial Blood Glucose Arterial Blood Ionized Calcium Urine Creatinine Urine Chloride Vancomycin Trough Coronavirus (PCR) Positive A Crossmatch 07/03/20 07/03/20 07/03/20 14:50 14:50 14:50 WBC RBC Hgb Hct MCHC RDW Plt Count Lymph % (Auto) [place] % (Auto) Lymph # (Auto) [place] # (Auto) Eos # (Auto) Seg Neutrophils % Seg Neuts % (Manual) Lymphocytes % (Manual) Monocytes % (Manual) Nucleated RBC % Seg Neutrophils # Seg Neutrophils # Man Lymphocytes # (Manual) Monocytes # (Manual) Eosinophils # (Manual) PT INR APTT D-Dimer Heparin Anti-Xa Level ABG pH POC ABG pCO2 POC ABG pO2 ABG pO2 ABG HCO3 ABG Hemoglobin ABG Oxyhemoglobin ABG Sodium ABG Potassium ABG Chloride ABG Glucose Carboxyhemoglobin Sodium Potassium Chloride Carbon Dioxide BUN Creatinine Glucose POC Glucose Lactic Acid < 0.20 L Calcium Phosphorus Magnesium Ferritin 1171.0 H Direct Bilirubin AST ALT Alkaline Phosphatase Lactate Dehydrogenase 525 H Total Creatine Kinase C-Reactive Protein 31.50 H Total Protein Albumin Triglycerides Arterial Blood Glucose Arterial Blood Ionized Calcium Urine Creatinine Urine Chloride Vancomycin Trough Coronavirus (PCR) Crossmatch 07/03/20 07/04/20 07/04/20 16:47 05:20 05:20 WBC 11.8 H RBC 2.32 L Hgb 6.7 L Hct 20.8 L MCHC RDW Plt Count Lymph % (Auto) 2.6 L [place] % (Auto) Lymph # (Auto) 0.3 L [place] # (Auto) Eos # (Auto) Seg Neutrophils % Seg Neuts % (Manual) Lymphocytes % (Manual) Monocytes % (Manual) Nucleated RBC % Seg Neutrophils # 11.0 H Seg Neutrophils # Man Lymphocytes # (Manual) Monocytes # (Manual) Eosinophils # (Manual) PT INR APTT D-Dimer Heparin Anti-Xa Level ABG pH POC ABG pCO2 POC ABG pO2 ABG pO2 ABG HCO3 ABG Hemoglobin ABG Oxyhemoglobin ABG Sodium ABG Potassium ABG Chloride ABG Glucose Carboxyhemoglobin Sodium Potassium 6.0 H Chloride 97.8 L Carbon Dioxide BUN 75 H Creatinine 4.5 H Glucose 121 H POC Glucose 107 H Lactic Acid Calcium 7.9 L Phosphorus Magnesium Ferritin Direct Bilirubin AST ALT Alkaline Phosphatase Lactate Dehydrogenase Total Creatine Kinase C-Reactive Protein Total Protein Albumin Triglycerides Arterial Blood Glucose Arterial Blood Ionized Calcium Urine Creatinine Urine Chloride Vancomycin Trough Coronavirus (PCR) Crossmatch 07/04/20 07/04/20 07/04/20 05:20 05:50 09:25 WBC RBC Hgb Hct MCHC RDW Plt Count Lymph % (Auto) [place] % (Auto) Lymph # (Auto) [place] # (Auto) Eos # (Auto) Seg Neutrophils % Seg Neuts % (Manual) Lymphocytes % (Manual) Monocytes % (Manual) Nucleated RBC % Seg Neutrophils # Seg Neutrophils # Man Lymphocytes # (Manual) Monocytes # (Manual) Eosinophils # (Manual) PT INR APTT D-Dimer Heparin Anti-Xa Level ABG pH 7.324 L POC ABG pCO2 POC ABG pO2 ABG pO2 98.9 H ABG HCO3 26.8 H ABG Hemoglobin < 5.1 L ABG Oxyhemoglobin ABG Sodium ABG Potassium ABG Chloride ABG Glucose Carboxyhemoglobin Sodium Potassium Chloride Carbon Dioxide BUN Creatinine Glucose POC Glucose 114 H Lactic Acid Calcium Phosphorus Magnesium Ferritin Direct Bilirubin AST ALT Alkaline Phosphatase Lactate Dehydrogenase Total Creatine Kinase C-Reactive Protein Total Protein Albumin Triglycerides Arterial Blood Glucose Arterial Blood Ionized Calcium Urine Creatinine Urine Chloride Vancomycin Trough Coronavirus (PCR) Crossmatch See Detail 07/04/20 07/04/20 07/04/20 12:33 17:41 23:04 WBC RBC Hgb Hct MCHC RDW Plt Count Lymph % (Auto) [place] % (Auto) Lymph # (Auto) [place] # (Auto) Eos # (Auto) Seg Neutrophils % Seg Neuts % (Manual) Lymphocytes % (Manual) Monocytes % (Manual) Nucleated RBC % Seg Neutrophils # Seg Neutrophils # Man Lymphocytes # (Manual) Monocytes # (Manual) Eosinophils # (Manual) PT INR APTT D-Dimer Heparin Anti-Xa Level ABG pH POC ABG pCO2 POC ABG pO2 ABG pO2 ABG HCO3 ABG Hemoglobin ABG Oxyhemoglobin ABG Sodium ABG Potassium ABG Chloride ABG Glucose Carboxyhemoglobin Sodium Potassium Chloride Carbon Dioxide BUN Creatinine Glucose POC Glucose 119 H 109 H 116 H Lactic Acid Calcium Phosphorus Magnesium Ferritin Direct Bilirubin AST ALT Alkaline Phosphatase Lactate Dehydrogenase Total Creatine Kinase C-Reactive Protein Total Protein Albumin Triglycerides Arterial Blood Glucose Arterial Blood Ionized Calcium Urine Creatinine Urine Chloride Vancomycin Trough Coronavirus (PCR) Crossmatch 07/05/20 07/05/20 07/05/20 04:30 08:21 08:21 WBC RBC 2.77 L Hgb 7.9 L Hct 23.9 L MCHC RDW 16.7 H Plt Count Lymph % (Auto) 7.5 L [place] % (Auto) Lymph # (Auto) 0.7 L [place] # (Auto) Eos # (Auto) Seg Neutrophils % 85.8 H Seg Neuts % (Manual) Lymphocytes % (Manual) Monocytes % (Manual) Nucleated RBC % Seg Neutrophils # 7.8 H Seg Neutrophils # Man Lymphocytes # (Manual) Monocytes # (Manual) Eosinophils # (Manual) PT INR APTT D-Dimer Heparin Anti-Xa Level ABG pH 7.295 L POC ABG pCO2 POC ABG pO2 ABG pO2 151.9 H ABG HCO3 26.8 H ABG Hemoglobin 7.3 L ABG Oxyhemoglobin ABG Sodium ABG Potassium ABG Chloride ABG Glucose Carboxyhemoglobin Sodium Potassium Chloride Carbon Dioxide BUN Creatinine Glucose POC Glucose Lactic Acid Calcium Phosphorus Magnesium Ferritin Direct Bilirubin AST ALT Alkaline Phosphatase Lactate Dehydrogenase Total Creatine Kinase C-Reactive Protein Total Protein Albumin Triglycerides 258 H Arterial Blood Glucose Arterial Blood Ionized Calcium Urine Creatinine Urine Chloride Vancomycin Trough Coronavirus (PCR) Crossmatch 07/05/20 07/05/20 07/06/20 08:21 12:12 04:29 WBC RBC Hgb Hct MCHC RDW Plt Count Lymph % (Auto) [place] % (Auto) Lymph # (Auto) [place] # (Auto) Eos # (Auto) Seg Neutrophils % Seg Neuts % (Manual) Lymphocytes % (Manual) Monocytes % (Manual) Nucleated RBC % Seg Neutrophils # Seg Neutrophils # Man Lymphocytes # (Manual) Monocytes # (Manual) Eosinophils # (Manual) PT INR APTT D-Dimer Heparin Anti-Xa Level ABG pH 7.291 L POC ABG pCO2 51.3 H POC ABG pO2 ABG pO2 ABG HCO3 ABG Hemoglobin 8.5 L ABG Oxyhemoglobin ABG Sodium 129.6 L ABG Potassium 4.8 H ABG Chloride 96.0 L ABG Glucose Carboxyhemoglobin Sodium 133 L Potassium 5.6 H Chloride 94.4 L Carbon Dioxide BUN 80 H Creatinine 4.2 H Glucose 114 H POC Glucose 106 H Lactic Acid Calcium 7.6 L Phosphorus Magnesium Ferritin Direct Bilirubin 0.5 H AST 75 H ALT 86 H Alkaline Phosphatase Lactate Dehydrogenase Total Creatine Kinase C-Reactive Protein Total Protein 5.6 L D Albumin 1.9 L Triglycerides Arterial Blood Glucose Arterial Blood Ionized Calcium 4.2 L Urine Creatinine Urine Chloride Vancomycin Trough Coronavirus (PCR) Crossmatch 07/06/20 07/06/20 07/06/20 11:35 11:35 12:16 WBC RBC 2.54 L Hgb 7.5 L Hct 21.5 L MCHC 35 H RDW 15.7 H Plt Count Lymph % (Auto) [place] % (Auto) Lymph # (Auto) [place] # (Auto) Eos # (Auto) Seg Neutrophils % Seg Neuts % (Manual) Lymphocytes % (Manual) Monocytes % (Manual) Nucleated RBC % Seg Neutrophils # Seg Neutrophils # Man Lymphocytes # (Manual) Monocytes # (Manual) Eosinophils # (Manual) PT INR APTT D-Dimer Heparin Anti-Xa Level ABG pH POC ABG pCO2 POC ABG pO2 ABG pO2 ABG HCO3 ABG Hemoglobin ABG Oxyhemoglobin ABG Sodium ABG Potassium ABG Chloride ABG Glucose Carboxyhemoglobin Sodium 130 L Potassium Chloride 92.2 L Carbon Dioxide 19 L D BUN 107 H Creatinine 5.1 H Glucose 106 H POC Glucose 106 H Lactic Acid Calcium 7.5 L Phosphorus Magnesium Ferritin Direct Bilirubin AST ALT Alkaline Phosphatase Lactate Dehydrogenase Total Creatine Kinase C-Reactive Protein Total Protein Albumin Triglycerides Arterial Blood Glucose Arterial Blood Ionized Calcium Urine Creatinine Urine Chloride Vancomycin Trough Coronavirus (PCR) Crossmatch 07/06/20 07/06/20 07/06/20 17:01 21:56 23:41 WBC RBC Hgb Hct MCHC RDW Plt Count Lymph % (Auto) [place] % (Auto) Lymph # (Auto) [place] # (Auto) Eos # (Auto) Seg Neutrophils % Seg Neuts % (Manual) Lymphocytes % (Manual) Monocytes % (Manual) Nucleated RBC % Seg Neutrophils # Seg Neutrophils # Man Lymphocytes # (Manual) Monocytes # (Manual) Eosinophils # (Manual) PT INR APTT D-Dimer Heparin Anti-Xa Level ABG pH POC ABG pCO2 POC ABG pO2 ABG pO2 ABG HCO3 ABG Hemoglobin ABG Oxyhemoglobin ABG Sodium ABG Potassium ABG Chloride ABG Glucose Carboxyhemoglobin Sodium 135 L Potassium 5.1 H Chloride Carbon Dioxide BUN 73 H Creatinine 4.0 H Glucose 112 H POC Glucose 109 H 111 H Lactic Acid Calcium 7.8 L Phosphorus Magnesium Ferritin Direct Bilirubin AST ALT Alkaline Phosphatase Lactate Dehydrogenase Total Creatine Kinase C-Reactive Protein Total Protein Albumin Triglycerides Arterial Blood Glucose Arterial Blood Ionized Calcium Urine Creatinine Urine Chloride Vancomycin Trough Coronavirus (PCR) Crossmatch 07/07/20 07/07/2007/07/21 04:18 05:04 05:29 WBC RBC 2.46 L Hgb 7.6 L Hct 21.5 L MCHC 35 H RDW 16.5 H Plt Count Lymph % (Auto) [place] % (Auto) Lymph # (Auto) [place] # (Auto) Eos # (Auto) Seg Neutrophils % Seg Neuts % (Manual) 82.0 H Lymphocytes % (Manual) Monocytes % (Manual) Nucleated RBC % 1.0 H Seg Neutrophils # Seg Neutrophils # Man Lymphocytes # (Manual) 1.1 L Monocytes # (Manual) Eosinophils # (Manual) PT INR APTT D-Dimer Heparin Anti-Xa Level ABG pH POC ABG pCO2 POC ABG pO2 79.6 L ABG pO2 ABG HCO3 ABG Hemoglobin 8.2 L ABG Oxyhemoglobin ABG Sodium 133.3 L ABG Potassium 4.7 H ABG Chloride ABG Glucose 135 H Carboxyhemoglobin Sodium Potassium Chloride Carbon Dioxide BUN Creatinine Glucose POC Glucose 112 H Lactic Acid Calcium Phosphorus Magnesium Ferritin Direct Bilirubin AST ALT Alkaline Phosphatase Lactate Dehydrogenase Total Creatine Kinase C-Reactive Protein Total Protein Albumin Triglycerides Arterial Blood Glucose 135 H Arterial Blood Ionized Calcium 4.5 L Urine Creatinine Urine Chloride Vancomycin Trough Coronavirus (PCR) Crossmatch 07/07/20 07/07/20 07/07/20 10:17 12:18 17:43 WBC RBC Hgb Hct MCHC RDW Plt Count Lymph % (Auto) [place] % (Auto) Lymph # (Auto) [place] # (Auto) Eos # (Auto) Seg Neutrophils % Seg Neuts % (Manual) Lymphocytes % (Manual) Monocytes % (Manual) Nucleated RBC % Seg Neutrophils # Seg Neutrophils # Man Lymphocytes # (Manual) Monocytes # (Manual) Eosinophils # (Manual) PT INR APTT D-Dimer Heparin Anti-Xa Level ABG pH POC ABG pCO2 POC ABG pO2 ABG pO2 ABG HCO3 ABG Hemoglobin ABG Oxyhemoglobin ABG Sodium ABG Potassium ABG Chloride ABG Glucose Carboxyhemoglobin Sodium 136 L Potassium Chloride 96.8 L Carbon Dioxide BUN 82 H Creatinine 4.3 H Glucose 129 H POC Glucose 108 H 116 H Lactic Acid Calcium 7.8 L Phosphorus Magnesium Ferritin Direct Bilirubin AST ALT Alkaline Phosphatase Lactate Dehydrogenase Total Creatine Kinase C-Reactive Protein Total Protein Albumin Triglycerides Arterial Blood Glucose Arterial Blood Ionized Calcium Urine Creatinine Urine Chloride Vancomycin Trough Coronavirus (PCR) Crossmatch 07/07/20 07/08/20 07/08/20 23:31 04:00 04:00 WBC RBC 2.52 L Hgb 7.3 L Hct 22.2 L MCHC RDW 16.6 H Plt Count Lymph % (Auto) 11.5 L [place] % (Auto) Lymph # (Auto) [place] # (Auto) Eos # (Auto) Seg Neutrophils % 78.2 H Seg Neuts % (Manual) Lymphocytes % (Manual) Monocytes % (Manual) Nucleated RBC % Seg Neutrophils # 8.0 H Seg Neutrophils # Man Lymphocytes # (Manual) Monocytes # (Manual) Eosinophils # (Manual) PT INR APTT D-Dimer Heparin Anti-Xa Level ABG pH POC ABG pCO2 POC ABG pO2 ABG pO2 ABG HCO3 ABG Hemoglobin ABG Oxyhemoglobin ABG Sodium ABG Potassium ABG Chloride ABG Glucose Carboxyhemoglobin Sodium 132 L Potassium 5.4 H Chloride 92.5 L Carbon Dioxide BUN 98 H Creatinine 4.9 H Glucose 105 H POC Glucose 117 H Lactic Acid Calcium 7.9 L Phosphorus Magnesium Ferritin Direct Bilirubin AST ALT Alkaline Phosphatase Lactate Dehydrogenase Total Creatine Kinase C-Reactive Protein Total Protein Albumin Triglycerides Arterial Blood Glucose Arterial Blood Ionized Calcium Urine Creatinine Urine Chloride Vancomycin Trough Coronavirus (PCR) Crossmatch 07/08/20 07/08/20 07/08/20 04:09 11:34 17:05 WBC RBC Hgb Hct MCHC RDW Plt Count Lymph % (Auto) [place] % (Auto) Lymph # (Auto) [place] # (Auto) Eos # (Auto) Seg Neutrophils % Seg Neuts % (Manual) Lymphocytes % (Manual) Monocytes % (Manual) Nucleated RBC % Seg Neutrophils # Seg Neutrophils # Man Lymphocytes # (Manual) Monocytes # (Manual) Eosinophils # (Manual) PT INR APTT D-Dimer Heparin Anti-Xa Level ABG pH 7.220 L POC ABG pCO2 60.5 H POC ABG pO2 ABG pO2 ABG HCO3 ABG Hemoglobin 8.2 L ABG Oxyhemoglobin ABG Sodium 131.3 L ABG Potassium 5.2 H ABG Chloride ABG Glucose 103 H Carboxyhemoglobin Sodium Potassium Chloride Carbon Dioxide BUN Creatinine Glucose POC Glucose 140 H 125 H Lactic Acid Calcium Phosphorus Magnesium Ferritin Direct Bilirubin AST ALT Alkaline Phosphatase Lactate Dehydrogenase Total Creatine Kinase C-Reactive Protein Total Protein Albumin Triglycerides Arterial Blood Glucose 103 H Arterial Blood Ionized Calcium 4.3 L Urine Creatinine Urine Chloride Vancomycin Trough Coronavirus (PCR) Crossmatch 07/08/20 07/08/20 07/09/20 20:21 23:43 05:10 WBC RBC Hgb Hct MCHC RDW Plt Count Lymph % (Auto) [place] % (Auto) Lymph # (Auto) [place] # (Auto) Eos # (Auto) Seg Neutrophils % Seg Neuts % (Manual) Lymphocytes % (Manual) Monocytes % (Manual) Nucleated RBC % Seg Neutrophils # Seg Neutrophils # Man Lymphocytes # (Manual) Monocytes # (Manual) Eosinophils # (Manual) PT INR APTT D-Dimer Heparin Anti-Xa Level ABG pH 7.20 L POC ABG pCO2 69.8 H POC ABG pO2 138.9 H 76.1 L ABG pO2 ABG HCO3 ABG Hemoglobin 11.9 L 8.4 L ABG Oxyhemoglobin ABG Sodium 133.1 L 131.2 L ABG Potassium 5.0 H 4.7 H ABG Chloride ABG Glucose 120 H 102 H Carboxyhemoglobin Sodium Potassium Chloride Carbon Dioxide BUN Creatinine Glucose POC Glucose 118 H Lactic Acid Calcium Phosphorus Magnesium Ferritin Direct Bilirubin AST ALT Alkaline Phosphatase Lactate Dehydrogenase Total Creatine Kinase C-Reactive Protein Total Protein Albumin Triglycerides Arterial Blood Glucose 120 H 102 H Arterial Blood Ionized Calcium 4.4 L 4.3 L Urine Creatinine Urine Chloride Vancomycin Trough Coronavirus (PCR) Crossmatch 07/09/20 07/09/20 07/09/20 11:51 17:04 21:00 WBC RBC Hgb Hct MCHC RDW Plt Count Lymph % (Auto) [place] % (Auto) Lymph # (Auto) [place] # (Auto) Eos # (Auto) Seg Neutrophils % Seg Neuts % (Manual) Lymphocytes % (Manual) Monocytes % (Manual) Nucleated RBC % Seg Neutrophils # Seg Neutrophils # Man Lymphocytes # (Manual) Monocytes # (Manual) Eosinophils # (Manual) PT INR APTT D-Dimer Heparin Anti-Xa Level ABG pH POC ABG pCO2 POC ABG pO2 114.2 H ABG pO2 ABG HCO3 ABG Hemoglobin 7.8 L ABG Oxyhemoglobin ABG Sodium 132.3 L ABG Potassium 4.6 H ABG Chloride ABG Glucose Carboxyhemoglobin Sodium Potassium Chloride Carbon Dioxide BUN Creatinine Glucose POC Glucose 113 H 111 H Lactic Acid Calcium Phosphorus Magnesium Ferritin Direct Bilirubin AST ALT Alkaline Phosphatase Lactate Dehydrogenase Total Creatine Kinase C-Reactive Protein Total Protein Albumin Triglycerides Arterial Blood Glucose Arterial Blood Ionized Calcium 4.4 L Urine Creatinine Urine Chloride Vancomycin Trough Coronavirus (PCR) Crossmatch 07/10/20 07/10/20 07/10/20 03:49 03:55 03:55 WBC 18.1 H RBC 2.37 L Hgb 6.8 L Hct 20.7 L MCHC RDW 16.9 H Plt Count Lymph % (Auto) [place] % (Auto) Lymph # (Auto) [place] # (Auto) Eos # (Auto) Seg Neutrophils % Seg Neuts % (Manual) 79.0 H Lymphocytes % (Manual) 10.0 L Monocytes % (Manual) Nucleated RBC % 1.0 H Seg Neutrophils # Seg Neutrophils # Man 14.3 H Lymphocytes # (Manual) Monocytes # (Manual) Eosinophils # (Manual) 0.7 H PT INR APTT D-Dimer Heparin Anti-Xa Level ABG pH POC ABG pCO2 POC ABG pO2 ABG pO2 ABG HCO3 ABG Hemoglobin 7.7 L ABG Oxyhemoglobin ABG Sodium 130.3 L ABG Potassium 4.6 H ABG Chloride ABG Glucose Carboxyhemoglobin Sodium 136 L Potassium Chloride 96.0 L Carbon Dioxide BUN 76 H Creatinine 3.6 H Glucose POC Glucose Lactic Acid Calcium 7.4 L Phosphorus Magnesium Ferritin Direct Bilirubin AST ALT Alkaline Phosphatase Lactate Dehydrogenase Total Creatine Kinase C-Reactive Protein Total Protein Albumin Triglycerides Arterial Blood Glucose Arterial Blood Ionized Calcium 4.2 L Urine Creatinine Urine Chloride Vancomycin Trough Coronavirus (PCR) Crossmatch 07/10/20 07/11/20 07/11/20 13:24 04:08 06:52 WBC 26.0 H RBC 2.91 L Hgb 8.2 L Hct 24.8 L MCHC RDW 17.2 H Plt Count Lymph % (Auto) [place] % (Auto) Lymph # (Auto) [place] # (Auto) Eos # (Auto) Seg Neutrophils % Seg Neuts % (Manual) Lymphocytes % (Manual) 1.0 L Monocytes % (Manual) 11.0 H Nucleated RBC % Seg Neutrophils # Seg Neutrophils # Man 16.9 H Lymphocytes # (Manual) 0.3 L Monocytes # (Manual) 2.9 H Eosinophils # (Manual) 1.0 H PT INR APTT D-Dimer Heparin Anti-Xa Level ABG pH POC ABG pCO2 POC ABG pO2 ABG pO2 ABG HCO3 ABG Hemoglobin 8.5 L ABG Oxyhemoglobin ABG Sodium 130.6 L ABG Potassium 4.9 H ABG Chloride ABG Glucose 105 H Carboxyhemoglobin Sodium Potassium Chloride Carbon Dioxide BUN Creatinine Glucose POC Glucose Lactic Acid Calcium Phosphorus Magnesium Ferritin Direct Bilirubin AST ALT Alkaline Phosphatase Lactate Dehydrogenase Total Creatine Kinase C-Reactive Protein Total Protein Albumin Triglycerides Arterial Blood Glucose 105 H Arterial Blood Ionized Calcium 4.1 L Urine Creatinine Urine Chloride Vancomycin Trough Coronavirus (PCR) Crossmatch See Detail 07/11/20 07/11/20 07/11/20 06:52 08:48 11:39 WBC RBC Hgb Hct MCHC RDW Plt Count Lymph % (Auto) [place] % (Auto) Lymph # (Auto) [place] # (Auto) Eos # (Auto) Seg Neutrophils % Seg Neuts % (Manual) Lymphocytes % (Manual) Monocytes % (Manual) Nucleated RBC % Seg Neutrophils # Seg Neutrophils # Man Lymphocytes # (Manual) Monocytes # (Manual) Eosinophils # (Manual) PT INR APTT D-Dimer Heparin Anti-Xa Level ABG pH POC ABG pCO2 POC ABG pO2 ABG pO2 ABG HCO3 ABG Hemoglobin ABG Oxyhemoglobin ABG Sodium ABG Potassium ABG Chloride ABG Glucose Carboxyhemoglobin Sodium 133 L 134 L Potassium 5.3 H Chloride 93.5 L 94.8 L Carbon Dioxide BUN 101 H 99 H Creatinine 4.5 H 4.6 H Glucose 102 H POC Glucose 116 H Lactic Acid Calcium 7.8 L 7.6 L Phosphorus Magnesium Ferritin Direct Bilirubin AST ALT Alkaline Phosphatase Lactate Dehydrogenase Total Creatine Kinase C-Reactive Protein Total Protein Albumin Triglycerides Arterial Blood Glucose Arterial Blood Ionized Calcium Urine Creatinine Urine Chloride Vancomycin Trough Coronavirus (PCR) Crossmatch 07/11/20 07/12/20 07/12/20 17:23 00:04 03:20 WBC RBC Hgb Hct MCHC RDW Plt Count Lymph % (Auto) [place] % (Auto) Lymph # (Auto) [place] # (Auto) Eos # (Auto) Seg Neutrophils % Seg Neuts % (Manual) Lymphocytes % (Manual) Monocytes % (Manual) Nucleated RBC % Seg Neutrophils # Seg Neutrophils # Man Lymphocytes # (Manual) Monocytes # (Manual) Eosinophils # (Manual) PT INR APTT D-Dimer Heparin Anti-Xa Level ABG pH POC ABG pCO2 49.1 H POC ABG pO2 130.3 H ABG pO2 ABG HCO3 ABG Hemoglobin 8.7 L ABG Oxyhemoglobin ABG Sodium 135.2 L ABG Potassium 4.7 H ABG Chloride ABG Glucose 128 H Carboxyhemoglobin Sodium Potassium Chloride Carbon Dioxide BUN Creatinine Glucose POC Glucose 142 H 113 H Lactic Acid Calcium Phosphorus Magnesium Ferritin Direct Bilirubin AST ALT Alkaline Phosphatase Lactate Dehydrogenase Total Creatine Kinase C-Reactive Protein Total Protein Albumin Triglycerides Arterial Blood Glucose 128 H Arterial Blood Ionized Calcium 4.4 L Urine Creatinine Urine Chloride Vancomycin Trough Coronavirus (PCR) Crossmatch 07/12/20 07/12/20 07/12/20 03:40 03:40 04:00 WBC 24.3 H RBC 2.83 L Hgb 8.0 L Hct 24.9 L MCHC RDW 17.7 H Plt Count Lymph % (Auto) 5.6 L [place] % (Auto) 7.4 H Lymph # (Auto) [place] # (Auto) 1.8 H Eos # (Auto) 0.7 H Seg Neutrophils % 83.9 H Seg Neuts % (Manual) Lymphocytes % (Manual) Monocytes % (Manual) Nucleated RBC % Seg Neutrophils # 20.4 H Seg Neutrophils # Man Lymphocytes # (Manual) Monocytes # (Manual) Eosinophils # (Manual) PT INR APTT D-Dimer Heparin Anti-Xa Level ABG pH POC ABG pCO2 POC ABG pO2 ABG pO2 ABG HCO3 ABG Hemoglobin ABG Oxyhemoglobin ABG Sodium ABG Potassium ABG Chloride ABG Glucose Carboxyhemoglobin Sodium 134 L Potassium Chloride 95.5 L Carbon Dioxide BUN 79 H Creatinine 3.7 H Glucose 127 H POC Glucose Lactic Acid Calcium 7.8 L Phosphorus Magnesium Ferritin Direct Bilirubin AST ALT Alkaline Phosphatase Lactate Dehydrogenase Total Creatine Kinase C-Reactive Protein Total Protein Albumin Triglycerides 246 H Arterial Blood Glucose Arterial Blood Ionized Calcium Urine Creatinine Urine Chloride Vancomycin Trough Coronavirus (PCR) Crossmatch 07/12/20 07/12/20 07/12/20 05:48 11:50 17:29 WBC RBC Hgb Hct MCHC RDW Plt Count Lymph % (Auto) [place] % (Auto) Lymph # (Auto) [place] # (Auto) Eos # (Auto) Seg Neutrophils % Seg Neuts % (Manual) Lymphocytes % (Manual) Monocytes % (Manual) Nucleated RBC % Seg Neutrophils # Seg Neutrophils # Man Lymphocytes # (Manual) Monocytes # (Manual) Eosinophils # (Manual) PT INR APTT D-Dimer Heparin Anti-Xa Level ABG pH POC ABG pCO2 POC ABG pO2 ABG pO2 ABG HCO3 ABG Hemoglobin ABG Oxyhemoglobin ABG Sodium ABG Potassium ABG Chloride ABG Glucose Carboxyhemoglobin Sodium Potassium Chloride Carbon Dioxide BUN Creatinine Glucose POC Glucose 136 H 113 H 110 H Lactic Acid Calcium Phosphorus Magnesium Ferritin Direct Bilirubin AST ALT Alkaline Phosphatase Lactate Dehydrogenase Total Creatine Kinase C-Reactive Protein Total Protein Albumin Triglycerides Arterial Blood Glucose Arterial Blood Ionized Calcium Urine Creatinine Urine Chloride Vancomycin Trough Coronavirus (PCR) Crossmatch 07/12/20 07/13/20 07/13/20 23:43 03:11 06:59 WBC RBC Hgb Hct MCHC RDW Plt Count Lymph % (Auto) [place] % (Auto) Lymph # (Auto) [place] # (Auto) Eos # (Auto) Seg Neutrophils % Seg Neuts % (Manual) Lymphocytes % (Manual) Monocytes % (Manual) Nucleated RBC % Seg Neutrophils # Seg Neutrophils # Man Lymphocytes # (Manual) Monocytes # (Manual) Eosinophils # (Manual) PT INR APTT D-Dimer Heparin Anti-Xa Level ABG pH POC ABG pCO2 49.0 H POC ABG pO2 69.6 L ABG pO2 ABG HCO3 ABG Hemoglobin 8.5 L ABG Oxyhemoglobin 90.5 L ABG Sodium 133.6 L ABG Potassium 5.1 H ABG Chloride ABG Glucose 104 H Carboxyhemoglobin Sodium 133 L Potassium 5.7 H Chloride 96.3 L Carbon Dioxide 20 L D BUN 102 H Creatinine 4.4 H Glucose 101 H POC Glucose 120 H Lactic Acid Calcium 7.9 L Phosphorus Magnesium Ferritin Direct Bilirubin AST 61 H ALT 85 H Alkaline Phosphatase 144 H Lactate Dehydrogenase Total Creatine Kinase C-Reactive Protein Total Protein 5.4 L Albumin 2.0 L Triglycerides Arterial Blood Glucose 104 H Arterial Blood Ionized Calcium 4.3 L Urine Creatinine Urine Chloride Vancomycin Trough Coronavirus (PCR) Crossmatch 07/13/20 07/13/20 07/13/20 08:48 12:14 15:12 WBC 27.5 H RBC 3.03 L Hgb 8.7 L Hct 27.0 L MCHC RDW 18.0 H Plt Count Lymph % (Auto) [place] % (Auto) Lymph # (Auto) [place] # (Auto) Eos # (Auto) Seg Neutrophils % Seg Neuts % (Manual) Lymphocytes % (Manual) Monocytes % (Manual) Nucleated RBC % Seg Neutrophils # Seg Neutrophils # Man Lymphocytes # (Manual) Monocytes # (Manual) Eosinophils # (Manual) PT INR APTT D-Dimer Heparin Anti-Xa Level ABG pH POC ABG pCO2 POC ABG pO2 ABG pO2 ABG HCO3 ABG Hemoglobin ABG Oxyhemoglobin ABG Sodium ABG Potassium ABG Chloride ABG Glucose Carboxyhemoglobin Sodium Potassium 5.5 H Chloride Carbon Dioxide BUN 88 H Creatinine 3.8 H Glucose 133 H POC Glucose 134 H Lactic Acid Calcium 7.5 L Phosphorus Magnesium Ferritin Direct Bilirubin AST ALT Alkaline Phosphatase Lactate Dehydrogenase Total Creatine Kinase C-Reactive Protein Total Protein Albumin Triglycerides Arterial Blood Glucose Arterial Blood Ionized Calcium Urine Creatinine Urine Chloride Vancomycin Trough Coronavirus (PCR) Crossmatch 07/13/20 07/13/20 07/13/20 16:46 16:47 18:46 WBC RBC Hgb 7.4 L Hct 22.1 L MCHC RDW Plt Count Lymph % (Auto) [place] % (Auto) Lymph # (Auto) [place] # (Auto) Eos # (Auto) Seg Neutrophils % Seg Neuts % (Manual) Lymphocytes % (Manual) Monocytes % (Manual) Nucleated RBC % Seg Neutrophils # Seg Neutrophils # Man Lymphocytes # (Manual) Monocytes # (Manual) Eosinophils # (Manual) PT INR APTT D-Dimer Heparin Anti-Xa Level ABG pH POC ABG pCO2 POC ABG pO2 ABG pO2 ABG HCO3 ABG Hemoglobin ABG Oxyhemoglobin ABG Sodium ABG Potassium ABG Chloride ABG Glucose Carboxyhemoglobin Sodium Potassium Chloride Carbon Dioxide BUN Creatinine Glucose POC Glucose 118 H Lactic Acid Calcium Phosphorus Magnesium Ferritin Direct Bilirubin AST ALT Alkaline Phosphatase Lactate Dehydrogenase Total Creatine Kinase C-Reactive Protein Total Protein Albumin Triglycerides Arterial Blood Glucose Arterial Blood Ionized Calcium Urine Creatinine Urine Chloride Vancomycin Trough Coronavirus (PCR) Crossmatch See Detail 07/13/20 07/14/20 07/14/20 23:34 04:25 12:21 WBC RBC Hgb Hct MCHC RDW Plt Count Lymph % (Auto) [place] % (Auto) Lymph # (Auto) [place] # (Auto) Eos # (Auto) Seg Neutrophils % Seg Neuts % (Manual) Lymphocytes % (Manual) Monocytes % (Manual) Nucleated RBC % Seg Neutrophils # Seg Neutrophils # Man Lymphocytes # (Manual) Monocytes # (Manual) Eosinophils # (Manual) PT INR APTT D-Dimer Heparin Anti-Xa Level ABG pH POC ABG pCO2 POC ABG pO2 ABG pO2 ABG HCO3 ABG Hemoglobin 8.9 L ABG Oxyhemoglobin ABG Sodium 133.1 L ABG Potassium 4.7 H ABG Chloride ABG Glucose 113 H Carboxyhemoglobin Sodium Potassium Chloride Carbon Dioxide BUN Creatinine Glucose POC Glucose 109 H 109 H Lactic Acid Calcium Phosphorus Magnesium Ferritin Direct Bilirubin AST ALT Alkaline Phosphatase Lactate Dehydrogenase Total Creatine Kinase C-Reactive Protein Total Protein Albumin Triglycerides Arterial Blood Glucose 113 H Arterial Blood Ionized Calcium 4.4 L Urine Creatinine Urine Chloride Vancomycin Trough Coronavirus (PCR) Crossmatch 07/14/20 07/14/20 07/14/20 16:44 16:44 20:20 WBC 30.1 H RBC 2.60 L Hgb 7.4 L 5.6 L* Hct 23.0 L 18.1 L* MCHC RDW 18.0 H Plt Count Lymph % (Auto) [place] % (Auto) Lymph # (Auto) [place] # (Auto) Eos # (Auto) Seg Neutrophils % Seg Neuts % (Manual) 78.0 H Lymphocytes % (Manual) 5.0 L Monocytes % (Manual) Nucleated RBC % Seg Neutrophils # Seg Neutrophils # Man 23.5 H Lymphocytes # (Manual) Monocytes # (Manual) 0.9 H Eosinophils # (Manual) PT 15.6 H INR 1.26 H APTT D-Dimer Heparin Anti-Xa Level ABG pH POC ABG pCO2 POC ABG pO2 ABG pO2 ABG HCO3 ABG Hemoglobin ABG Oxyhemoglobin ABG Sodium ABG Potassium ABG Chloride ABG Glucose Carboxyhemoglobin Sodium Potassium Chloride Carbon Dioxide BUN Creatinine Glucose POC Glucose Lactic Acid Calcium Phosphorus Magnesium Ferritin Direct Bilirubin AST ALT Alkaline Phosphatase Lactate Dehydrogenase Total Creatine Kinase C-Reactive Protein Total Protein Albumin Triglycerides Arterial Blood Glucose Arterial Blood Ionized Calcium Urine Creatinine Urine Chloride Vancomycin Trough Coronavirus (PCR) Crossmatch 07/14/20 07/14/20 07/15/20 21:19 23:45 04:13 WBC RBC Hgb Hct MCHC RDW Plt Count Lymph % (Auto) [place] % (Auto) Lymph # (Auto) [place] # (Auto) Eos # (Auto) Seg Neutrophils % Seg Neuts % (Manual) Lymphocytes % (Manual) Monocytes % (Manual) Nucleated RBC % Seg Neutrophils # Seg Neutrophils # Man Lymphocytes # (Manual) Monocytes # (Manual) Eosinophils # (Manual) PT INR APTT D-Dimer Heparin Anti-Xa Level ABG pH POC ABG pCO2 POC ABG pO2 ABG pO2 ABG HCO3 ABG Hemoglobin 5.8 L 6.0 L ABG Oxyhemoglobin 93.8 L ABG Sodium 132.2 L 130.3 L ABG Potassium 5.5 H 5.8 H ABG Chloride ABG Glucose 118 H 122 H Carboxyhemoglobin Sodium Potassium Chloride Carbon Dioxide BUN Creatinine Glucose POC Glucose 126 H Lactic Acid Calcium Phosphorus Magnesium Ferritin Direct Bilirubin AST ALT Alkaline Phosphatase Lactate Dehydrogenase Total Creatine Kinase C-Reactive Protein Total Protein Albumin Triglycerides Arterial Blood Glucose 118 H 122 H Arterial Blood Ionized Calcium 4.3 L 4.2 L Urine Creatinine Urine Chloride Vancomycin Trough Coronavirus (PCR) Crossmatch 07/15/20 07/15/20 07/15/20 08:21 08:21 08:38 WBC 45.5 H* RBC 2.42 L Hgb 7.1 L Hct 21.5 L MCHC RDW 16.5 H Plt Count Lymph % (Auto) [place] % (Auto) Lymph # (Auto) [place] # (Auto) Eos # (Auto) Seg Neutrophils % Seg Neuts % (Manual) 89.0 H Lymphocytes % (Manual) 7.0 L Monocytes % (Manual) Nucleated RBC % Seg Neutrophils # Seg Neutrophils # Man 40.5 H Lymphocytes # (Manual) Monocytes # (Manual) 1.8 H Eosinophils # (Manual) PT 17.6 H INR 1.46 H APTT D-Dimer Heparin Anti-Xa Level ABG pH POC ABG pCO2 POC ABG pO2 ABG pO2 ABG HCO3 ABG Hemoglobin ABG Oxyhemoglobin ABG Sodium ABG Potassium ABG Chloride ABG Glucose Carboxyhemoglobin Sodium 131 L Potassium 6.0 H Chloride 94.6 L Carbon Dioxide 20 L BUN 116 H Creatinine 4.6 H Glucose 123 H POC Glucose Lactic Acid Calcium 7.6 L Phosphorus Magnesium Ferritin Direct Bilirubin AST ALT Alkaline Phosphatase Lactate Dehydrogenase Total Creatine Kinase C-Reactive Protein Total Protein Albumin Triglycerides Arterial Blood Glucose Arterial Blood Ionized Calcium Urine Creatinine Urine Chloride Vancomycin Trough Coronavirus (PCR) Crossmatch 07/15/20 07/15/20 07/15/20 11:29 17:23 18:52 WBC RBC Hgb Hct MCHC RDW Plt Count Lymph % (Auto) [place] % (Auto) Lymph # (Auto) [place] # (Auto) Eos # (Auto) Seg Neutrophils % Seg Neuts % (Manual) Lymphocytes % (Manual) Monocytes % (Manual) Nucleated RBC % Seg Neutrophils # Seg Neutrophils # Man Lymphocytes # (Manual) Monocytes # (Manual) Eosinophils # (Manual) PT INR APTT D-Dimer Heparin Anti-Xa Level ABG pH POC ABG pCO2 POC ABG pO2 ABG pO2 ABG HCO3 ABG Hemoglobin ABG Oxyhemoglobin ABG Sodium ABG Potassium ABG Chloride ABG Glucose Carboxyhemoglobin Sodium Potassium Chloride 97.9 L Carbon Dioxide BUN 78 H Creatinine 3.1 H Glucose 114 H POC Glucose 181 H 120 H Lactic Acid Calcium 7.3 L Phosphorus Magnesium Ferritin Direct Bilirubin AST ALT Alkaline Phosphatase Lactate Dehydrogenase Total Creatine Kinase C-Reactive Protein Total Protein Albumin Triglycerides Arterial Blood Glucose Arterial Blood Ionized Calcium Urine Creatinine Urine Chloride Vancomycin Trough Coronavirus (PCR) Crossmatch 07/15/20 07/16/20 07/16/20 18:52 01:10 03:38 WBC RBC Hgb 9.9 L 8.5 L Hct 29.8 L D 24.7 L MCHC RDW Plt Count Lymph % (Auto) [place] % (Auto) Lymph # (Auto) [place] # (Auto) Eos # (Auto) Seg Neutrophils % Seg Neuts % (Manual) Lymphocytes % (Manual) Monocytes % (Manual) Nucleated RBC % Seg Neutrophils # Seg Neutrophils # Man Lymphocytes # (Manual) Monocytes # (Manual) Eosinophils # (Manual) PT INR APTT D-Dimer Heparin Anti-Xa Level ABG pH 7.314 L POC ABG pCO2 48.5 H POC ABG pO2 58.9 L ABG pO2 ABG HCO3 ABG Hemoglobin 8.7 L ABG Oxyhemoglobin 86.7 L ABG Sodium 132.7 L ABG Potassium 5.2 H ABG Chloride ABG Glucose 99 H Carboxyhemoglobin Sodium Potassium Chloride Carbon Dioxide BUN Creatinine Glucose POC Glucose Lactic Acid Calcium Phosphorus Magnesium Ferritin Direct Bilirubin AST ALT Alkaline Phosphatase Lactate Dehydrogenase Total Creatine Kinase C-Reactive Protein Total Protein Albumin Triglycerides Arterial Blood Glucose 99 H Arterial Blood Ionized Calcium 3.9 L Urine Creatinine Urine Chloride Vancomycin Trough Coronavirus (PCR) Crossmatch 07/16/20 07/16/20 07/16/20 04:28 04:28 07:29 WBC 48.9 H* RBC 2.86 L Hgb 8.6 L 7.9 L Hct 25.4 L 24.4 L MCHC RDW 15.6 H Plt Count Lymph % (Auto) [place] % (Auto) Lymph # (Auto) [place] # (Auto) Eos # (Auto) Seg Neutrophils % Seg Neuts % (Manual) Lymphocytes % (Manual) Monocytes % (Manual) Nucleated RBC % Seg Neutrophils # Seg Neutrophils # Man Lymphocytes # (Manual) Monocytes # (Manual) Eosinophils # (Manual) PT INR APTT D-Dimer Heparin Anti-Xa Level ABG pH POC ABG pCO2 POC ABG pO2 ABG pO2 ABG HCO3 ABG Hemoglobin ABG Oxyhemoglobin ABG Sodium ABG Potassium ABG Chloride ABG Glucose Carboxyhemoglobin Sodium 136 L Potassium 5.4 H Chloride 95.0 L Carbon Dioxide BUN 85 H Creatinine 3.4 H Glucose 66 L POC Glucose Lactic Acid Calcium 6.8 L Phosphorus Magnesium Ferritin Direct Bilirubin AST ALT Alkaline Phosphatase Lactate Dehydrogenase Total Creatine Kinase C-Reactive Protein Total Protein Albumin Triglycerides Arterial Blood Glucose Arterial Blood Ionized Calcium Urine Creatinine Urine Chloride Vancomycin Trough Coronavirus (PCR) Crossmatch 07/16/20 07/16/20 07/16/20 11:52 18:06 18:08 WBC RBC Hgb 7.4 L Hct 22.5 L MCHC RDW Plt Count Lymph % (Auto) [place] % (Auto) Lymph # (Auto) [place] # (Auto) Eos # (Auto) Seg Neutrophils % Seg Neuts % (Manual) Lymphocytes % (Manual) Monocytes % (Manual) Nucleated RBC % Seg Neutrophils # Seg Neutrophils # Man Lymphocytes # (Manual) Monocytes # (Manual) Eosinophils # (Manual) PT INR APTT D-Dimer Heparin Anti-Xa Level ABG pH POC ABG pCO2 POC ABG pO2 ABG pO2 ABG HCO3 ABG Hemoglobin ABG Oxyhemoglobin ABG Sodium ABG Potassium ABG Chloride ABG Glucose Carboxyhemoglobin Sodium Potassium Chloride Carbon Dioxide BUN Creatinine Glucose POC Glucose 124 H 108 H Lactic Acid Calcium Phosphorus Magnesium Ferritin Direct Bilirubin AST ALT Alkaline Phosphatase Lactate Dehydrogenase Total Creatine Kinase C-Reactive Protein Total Protein Albumin Triglycerides Arterial Blood Glucose Arterial Blood Ionized Calcium Urine Creatinine Urine Chloride Vancomycin Trough Coronavirus (PCR) Crossmatch 07/17/20 07/17/20 07/17/20 03:27 15:25 15:25 WBC 46.2 H* RBC 2.05 L Hgb 6.1 L Hct 18.4 L* MCHC RDW 15.6 H Plt Count Lymph % (Auto) [place] % (Auto) Lymph # (Auto) [place] # (Auto) Eos # (Auto) Seg Neutrophils % Seg Neuts % (Manual) 87.0 H Lymphocytes % (Manual) 3.0 L Monocytes % (Manual) Nucleated RBC % Seg Neutrophils # Seg Neutrophils # Man 40.2 H Lymphocytes # (Manual) Monocytes # (Manual) 3.2 H Eosinophils # (Manual) PT 18.2 H INR 1.52 H APTT D-Dimer Heparin Anti-Xa Level ABG pH 7.313 L POC ABG pCO2 50.9 H POC ABG pO2 ABG pO2 ABG HCO3 ABG Hemoglobin 7.5 L ABG Oxyhemoglobin ABG Sodium 131.8 L ABG Potassium 4.6 H ABG Chloride ABG Glucose 105 H Carboxyhemoglobin Sodium Potassium Chloride Carbon Dioxide BUN Creatinine Glucose POC Glucose Lactic Acid Calcium Phosphorus Magnesium Ferritin Direct Bilirubin AST ALT Alkaline Phosphatase Lactate Dehydrogenase Total Creatine Kinase C-Reactive Protein Total Protein Albumin Triglycerides Arterial Blood Glucose 105 H Arterial Blood Ionized Calcium 3.9 L Urine Creatinine Urine Chloride Vancomycin Trough Coronavirus (PCR) Crossmatch 07/17/20 07/18/20 07/18/20 Unknown 03:10 05:06 WBC 37.9 H RBC 2.91 L Hgb 8.5 L Hct 25.6 L D MCHC RDW Plt Count Lymph % (Auto) [place] % (Auto) Lymph # (Auto) [place] # (Auto) Eos # (Auto) Seg Neutrophils % Seg Neuts % (Manual) Lymphocytes % (Manual) Monocytes % (Manual) Nucleated RBC % Seg Neutrophils # Seg Neutrophils # Man Lymphocytes # (Manual) Monocytes # (Manual) Eosinophils # (Manual) PT INR APTT D-Dimer Heparin Anti-Xa Level ABG pH POC ABG pCO2 POC ABG pO2 114.9 H ABG pO2 ABG HCO3 ABG Hemoglobin 8.6 L ABG Oxyhemoglobin ABG Sodium 130.6 L ABG Potassium 4.9 H ABG Chloride ABG Glucose Carboxyhemoglobin Sodium Potassium Chloride Carbon Dioxide BUN Creatinine Glucose POC Glucose Lactic Acid Calcium Phosphorus Magnesium Ferritin Direct Bilirubin AST ALT Alkaline Phosphatase Lactate Dehydrogenase Total Creatine Kinase C-Reactive Protein Total Protein Albumin Triglycerides Arterial Blood Glucose Arterial Blood Ionized Calcium 3.8 L Urine Creatinine Urine Chloride Vancomycin Trough Coronavirus (PCR) Crossmatch See Detail 07/18/20 07/19/20 07/19/20 05:06 00:06 03:57 WBC RBC Hgb Hct MCHC RDW Plt Count Lymph % (Auto) [place] % (Auto) Lymph # (Auto) [place] # (Auto) Eos # (Auto) Seg Neutrophils % Seg Neuts % (Manual) Lymphocytes % (Manual) Monocytes % (Manual) Nucleated RBC % Seg Neutrophils # Seg Neutrophils # Man Lymphocytes # (Manual) Monocytes # (Manual) Eosinophils # (Manual) PT INR APTT D-Dimer Heparin Anti-Xa Level ABG pH POC ABG pCO2 POC ABG pO2 ABG pO2 ABG HCO3 ABG Hemoglobin 8.6 L ABG Oxyhemoglobin ABG Sodium 130.4 L ABG Potassium ABG Chloride ABG Glucose Carboxyhemoglobin Sodium Potassium 5.4 H Chloride Carbon Dioxide BUN 79 H Creatinine 3.2 H Glucose POC Glucose 69 L Lactic Acid Calcium 6.9 L Phosphorus Magnesium Ferritin Direct Bilirubin AST ALT 58 H Alkaline Phosphatase Lactate Dehydrogenase Total Creatine Kinase C-Reactive Protein Total Protein 4.3 L D Albumin 1.7 L Triglycerides 306 H Arterial Blood Glucose Arterial Blood Ionized Calcium 3.9 L Urine Creatinine Urine Chloride Vancomycin Trough Coronavirus (PCR) Crossmatch 07/19/20 07/19/20 07/19/20 05:22 09:15 09:15 WBC 32.5 H RBC 2.57 L Hgb 7.8 L Hct 22.8 L MCHC RDW 15.3 H Plt Count Lymph % (Auto) [place] % (Auto) Lymph # (Auto) [place] # (Auto) Eos # (Auto) Seg Neutrophils % Seg Neuts % (Manual) Lymphocytes % (Manual) Monocytes % (Manual) Nucleated RBC % Seg Neutrophils # Seg Neutrophils # Man Lymphocytes # (Manual) Monocytes # (Manual) Eosinophils # (Manual) PT INR APTT D-Dimer Heparin Anti-Xa Level ABG pH POC ABG pCO2 POC ABG pO2 ABG pO2 ABG HCO3 ABG Hemoglobin ABG Oxyhemoglobin ABG Sodium ABG Potassium ABG Chloride ABG Glucose Carboxyhemoglobin Sodium 135 L Potassium Chloride 96.3 L Carbon Dioxide BUN 61 H Creatinine 2.8 H Glucose POC Glucose 64 L Lactic Acid Calcium 6.8 L Phosphorus Magnesium Ferritin Direct Bilirubin AST 54 H ALT 65 H Alkaline Phosphatase Lactate Dehydrogenase Total Creatine Kinase C-Reactive Protein Total Protein 4.3 L Albumin 1.8 L Triglycerides Arterial Blood Glucose Arterial Blood Ionized Calcium Urine Creatinine Urine Chloride Vancomycin Trough Coronavirus (PCR) Crossmatch 07/20/20 07/20/20 07/20/20 05:20 06:00 06:07 WBC 28.1 H RBC 2.53 L Hgb 7.7 L Hct 22.7 L MCHC RDW 15.5 H Plt Count Lymph % (Auto) [place] % (Auto) Lymph # (Auto) [place] # (Auto) Eos # (Auto) Seg Neutrophils % Seg Neuts % (Manual) Lymphocytes % (Manual) Monocytes % (Manual) Nucleated RBC % Seg Neutrophils # Seg Neutrophils # Man Lymphocytes # (Manual) Monocytes # (Manual) Eosinophils # (Manual) PT INR APTT D-Dimer Heparin Anti-Xa Level ABG pH POC ABG pCO2 POC ABG pO2 ABG pO2 ABG HCO3 ABG Hemoglobin 6.3 L ABG Oxyhemoglobin ABG Sodium 130.0 L ABG Potassium ABG Chloride ABG Glucose 114 H Carboxyhemoglobin Sodium Potassium Chloride Carbon Dioxide BUN Creatinine Glucose POC Glucose 110 H Lactic Acid Calcium Phosphorus Magnesium Ferritin Direct Bilirubin AST ALT Alkaline Phosphatase Lactate Dehydrogenase Total Creatine Kinase C-Reactive Protein Total Protein Albumin Triglycerides Arterial Blood Glucose 114 H Arterial Blood Ionized Calcium 3.9 L Urine Creatinine Urine Chloride Vancomycin Trough Coronavirus (PCR) Crossmatch 07/20/20 07/21/20 07/21/20 17:19 05:02 05:40 WBC 32.9 H RBC 2.78 L Hgb 8.5 L Hct 25.2 L MCHC RDW 15.7 H Plt Count 74 L Lymph % (Auto) [place] % (Auto) Lymph # (Auto) [place] # (Auto) Eos # (Auto) Seg Neutrophils % Seg Neuts % (Manual) Lymphocytes % (Manual) Monocytes % (Manual) Nucleated RBC % Seg Neutrophils # Seg Neutrophils # Man Lymphocytes # (Manual) Monocytes # (Manual) Eosinophils # (Manual) PT INR APTT D-Dimer Heparin Anti-Xa Level ABG pH POC ABG pCO2 POC ABG pO2 73.2 L ABG pO2 ABG HCO3 ABG Hemoglobin 9.1 L ABG Oxyhemoglobin 93.4 L ABG Sodium ABG Potassium 3.1 L ABG Chloride ABG Glucose 112 H Carboxyhemoglobin Sodium Potassium Chloride Carbon Dioxide BUN Creatinine Glucose POC Glucose 137 H Lactic Acid Calcium Phosphorus Magnesium Ferritin Direct Bilirubin AST ALT Alkaline Phosphatase Lactate Dehydrogenase Total Creatine Kinase C-Reactive Protein Total Protein Albumin Triglycerides Arterial Blood Glucose 112 H Arterial Blood Ionized Calcium Urine Creatinine Urine Chloride Vancomycin Trough Coronavirus (PCR) Crossmatch 07/22/20 07/22/20 07/22/20 04:11 16:00 16:00 WBC 38.7 H RBC 2.72 L Hgb 8.1 L Hct 24.5 L MCHC RDW 16.1 H Plt Count Lymph % (Auto) [place] % (Auto) Lymph # (Auto) [place] # (Auto) Eos # (Auto) Seg Neutrophils % Seg Neuts % (Manual) Lymphocytes % (Manual) Monocytes % (Manual) Nucleated RBC % Seg Neutrophils # Seg Neutrophils # Man Lymphocytes # (Manual) Monocytes # (Manual) Eosinophils # (Manual) PT INR APTT D-Dimer Heparin Anti-Xa Level ABG pH POC ABG pCO2 POC ABG pO2 67.7 L ABG pO2 ABG HCO3 ABG Hemoglobin 7.4 L ABG Oxyhemoglobin 91.7 L ABG Sodium ABG Potassium 2.9 L ABG Chloride ABG Glucose 105 H Carboxyhemoglobin Sodium Potassium Chloride Carbon Dioxide BUN Creatinine Glucose POC Glucose Lactic Acid Calcium Phosphorus Magnesium Ferritin Direct Bilirubin AST ALT Alkaline Phosphatase Lactate Dehydrogenase Total Creatine Kinase C-Reactive Protein Total Protein Albumin Triglycerides 197 H Arterial Blood Glucose 105 H Arterial Blood Ionized Calcium Urine Creatinine Urine Chloride Vancomycin Trough Coronavirus (PCR) Crossmatch 07/23/20 07/23/20 07/23/20 04:56 11:49 Unknown WBC RBC Hgb Hct MCHC RDW Plt Count Lymph % (Auto) [place] % (Auto) Lymph # (Auto) [place] # (Auto) Eos # (Auto) Seg Neutrophils % Seg Neuts % (Manual) Lymphocytes % (Manual) Monocytes % (Manual) Nucleated RBC % Seg Neutrophils # Seg Neutrophils # Man Lymphocytes # (Manual) Monocytes # (Manual) Eosinophils # (Manual) PT INR APTT D-Dimer Heparin Anti-Xa Level ABG pH POC ABG pCO2 POC ABG pO2 75.7 L ABG pO2 ABG HCO3 ABG Hemoglobin 9.3 L ABG Oxyhemoglobin ABG Sodium ABG Potassium 3.1 L ABG Chloride 108.0 H ABG Glucose 101 H Carboxyhemoglobin Sodium Potassium 3.1 L D Chloride Carbon Dioxide BUN 36 H Creatinine 2.1 H Glucose 103 H POC Glucose 107 H Lactic Acid Calcium Phosphorus Magnesium Ferritin Direct Bilirubin AST ALT Alkaline Phosphatase Lactate Dehydrogenase Total Creatine Kinase C-Reactive Protein Total Protein Albumin Triglycerides Arterial Blood Glucose 101 H Arterial Blood Ionized Calcium Urine Creatinine Urine Chloride Vancomycin Trough Coronavirus (PCR) Crossmatch Chest x-ray: pending Allied health notes reviewed: nursing
[2020-07-24] MEDS: SODIUM HYPOCHLORITE, DAKIN'S 1/2 STRENGTH (0.25%) 473 ML TOPICAL SOLN TP SCH ×3 (00:35→21:33)
[2020-07-24] MEDS: INSULIN REGULAR, HUMAN 100 UNITS/1 ML SUB-Q SCH ×4 (00:40→19:11)
[2020-07-24] MEDS: AMPICILLIN/NS 2 GM/100 ML 2 GM/100 ML BAG IV SCH ×3 (03:42→23:35)
[2020-07-24] MEDS: NORepinephrine/NS 4 MG-250 ML 4 MG/250 ML BAG IV SCH ×2 (05:28→19:00)
[2020-07-24] MEDS: fentaNYL DRIP Premix 2,000 MCG/100 ML BAG IV SCH ×3 (06:49→20:45)
[2020-07-24 06:51] LABS: Hematocrit 21.7 % (35.5-45.6); Hemoglobin 7.2 gm/dl (11.8-15.2); Mean Corpuscular HGB Conc 33 % (32-34); Mean Corpuscular Volume 92 fl (84-94); Platelet Count 230 K/mm3 (140-440); Red Blood Count 2.37 M/mm3 (3.65-5.03)
[2020-07-24 07:19] LABS: Calcium 8.9 mg/dL (8.4-10.2)
[2020-07-24] MEDS: SODIUM BICARBONATE 650 MG TAB PO SCH ×3 (08:17→20:32)
[2020-07-24] MEDS: POTASSIUM CHLORIDE 10 MEQ 10 MEQ/100 ML BAG IV SCH ×4 (08:22→13:10)
--- NOTE | 2020-07-24 09:03 | Progress Note ---
Assessment and Plan - Patient Problems (1) GIRISH (acute kidney injury) Current Visit: Yes Status: Acute Plan to address problem: Likely prerenal in nature secondary to new onset of COVID-19 pneumonia with worsening sepsis and hypotension. Concern for acute tubular necrosis. Has now been on HD and this am is off pressor support. Will continue to monitor. Overall prognosis remains poor at this time. He is on a inpatient MWF HD schedule and we will assess daily needs for isolated UF treatment in order to optimize volume status. (2) Acute respiratory failure with hypoxia Current Visit: Yes Status: Acute Plan to address problem: Patient currently intubated at this time. Vent management per pulmonology recommendations. (3) Pneumonia due to COVID-19 virus Current Visit: Yes Status: Acute Plan to address problem: Management per infectious disease recommendations. (4) Anemia Current Visit: Yes Status: Acute Qualifiers: Other causes of anemia: acute posthemorrhagic Plan to address problem: Per GI notes, EGD did not show evidence of active bleeding. Follow up further GI recommendations. Transfuse to maintain Hgb >7.0. 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 I reviewed multidisciplinary notes and discussed with staff and physicians as needed. Patient remains on vent, sedated. Objective - Exam Narrative Exam: exam deferred d/t PPE preservation - Vital Signs Vital signs: Vital Signs - 12hr 07/23/20 07/23/20 07/23/20 20:05 20:10 20:15 Temperature Pulse Rate 127 H 126 H 127 H Pulse Rate [ From Monitor] Respiratory 29 H 26 H 22 Rate Blood Pressure 130/73 134/76 134/76 O2 Sat by Pulse 98 98 98 Oximetry 07/23/20 07/23/20 07/23/20 20:20 20:25 20:30 Temperature Pulse Rate 126 H 125 H 126 H Pulse Rate [ From Monitor] Respiratory 24 40 H 20 Rate Blood Pressure 143/71 143/71 153/79 O2 Sat by Pulse 98 96 97 Oximetry 07/23/20 07/23/20 07/23/20 20:35 20:40 20:45 Temperature Pulse Rate 127 H 127 H 127 H Pulse Rate [ From Monitor] Respiratory 16 26 H 24 Rate Blood Pressure 153/79 146/78 146/78 O2 Sat by Pulse 97 97 96 Oximetry 07/23/20 07/23/20 07/23/20 20:50 20:55 21:00 Temperature Pulse Rate 127 H 127 H 127 H Pulse Rate [ From Monitor] Respiratory 32 H 21 21 Rate Blood Pressure 134/79 134/79 146/74 O2 Sat by Pulse 96 97 96 Oximetry 07/23/20 07/23/20 07/23/20 21:05 21:10 21:15 Temperature Pulse Rate 127 H 127 H 128 H Pulse Rate [ From Monitor] Respiratory 20 28 H 18 Rate Blood Pressure 146/74 146/77 146/77 O2 Sat by Pulse 97 96 98 Oximetry 07/23/20 07/23/20 07/23/20 21:20 21:25 21:30 Temperature Pulse Rate 126 H 127 H 126 H Pulse Rate [ 115 H From Monitor] Respiratory 26 H 20 24 Rate Blood Pressure 157/82 157/82 147/82 O2 Sat by Pulse 95 97 96 Oximetry 07/23/20 07/23/20 07/23/20 21:35 21:40 21:45 Temperature Pulse Rate 126 H 127 H 127 H Pulse Rate [ From Monitor] Respiratory 25 H 16 15 Rate Blood Pressure 147/82 137/79 137/79 O2 Sat by Pulse 96 96 96 Oximetry 07/23/20 07/23/20 07/23/20 21:50 21:55 22:00 Temperature Pulse Rate 128 H 128 H 126 H Pulse Rate [ From Monitor] Respiratory 26 H 23 27 H Rate Blood Pressure 153/73 153/73 149/81 O2 Sat by Pulse 96 97 97 Oximetry 07/23/20 07/23/20 07/23/20 22:05 22:10 22:15 Temperature Pulse Rate 128 H 126 H 127 H Pulse Rate [ From Monitor] Respiratory 23 23 28 H Rate Blood Pressure 149/81 153/79 153/79 O2 Sat by Pulse 98 96 96 Oximetry 07/23/20 07/23/20 07/23/20 22:20 22:25 22:30 Temperature Pulse Rate 126 H 128 H 128 H Pulse Rate [ From Monitor] Respiratory 36 H 20 32 H Rate Blood Pressure 135/80 135/80 139/70 O2 Sat by Pulse 92 96 95 Oximetry 07/23/20 07/23/20 07/23/20 22:33 22:35 22:40 Temperature Pulse Rate 128 H 128 H 128 H Pulse Rate [ From Monitor] Respiratory 22 21 30 H Rate Blood Pressure 139/70 139/70 123/57 O2 Sat by Pulse 96 95 96 Oximetry 07/23/20 07/23/20 07/23/20 22:45 22:51 22:55 Temperature Pulse Rate 127 H 127 H 126 H Pulse Rate [ From Monitor] Respiratory 29 H 29 H 27 H Rate Blood Pressure 123/57 120/56 120/56 O2 Sat by Pulse 95 95 95 Oximetry 07/23/20 07/23/20 07/23/20 23:00 23:05 23:10 Temperature Pulse Rate 127 H 127 H 126 H Pulse Rate [ From Monitor] Respiratory 34 H 24 42 H Rate Blood Pressure 124/58 124/58 114/58 O2 Sat by Pulse 95 95 94 Oximetry 07/23/20 07/23/20 07/23/20 23:15 23:20 23:25 Temperature Pulse Rate 127 H 126 H 126 H Pulse Rate [ From Monitor] Respiratory 32 H 38 H 19 Rate Blood Pressure 114/58 123/64 123/64 O2 Sat by Pulse 94 93 95 Oximetry 07/23/20 07/23/20 07/23/20 23:30 23:35 23:40 Temperature Pulse Rate 126 H 128 H 126 H Pulse Rate [ From Monitor] Respiratory 30 H 25 H 30 H Rate Blood Pressure 128/65 128/65 123/64 O2 Sat by Pulse 95 94 95 Oximetry 07/23/20 07/23/20 07/23/20 23:45 23:50 23:55 Temperature 98.4 F Pulse Rate 126 H 127 H 126 H Pulse Rate [ From Monitor] Respiratory 21 30 H 21 Rate Blood Pressure 123/64 125/61 125/61 O2 Sat by Pulse 96 95 95 Oximetry 07/24/20 07/24/20 07/24/20 00:00 00:05 00:11 Temperature Pulse Rate 126 H 129 H 126 H Pulse Rate [ From Monitor] Respiratory 30 H 19 35 H Rate Blood Pressure 129/63 129/63 155/77 O2 Sat by Pulse 95 94 95 Oximetry 07/24/20 07/24/20 07/24/20 00:13 00:15 00:21 Temperature Pulse Rate 126 H 126 H 124 H Pulse Rate [ From Monitor] Respiratory 36 H 22 Rate Blood Pressure 129/63 155/77 144/91 O2 Sat by Pulse 95 93 94 Oximetry 07/24/20 07/24/20 07/24/20 00:25 00:30 00:35 Temperature Pulse Rate 129 H 127 H 129 H Pulse Rate [ 125 H From Monitor] Respiratory 28 H 29 H 27 H Rate Blood Pressure 144/91 131/69 108/50 O2 Sat by Pulse 89 99 97 Oximetry 07/24/20 07/24/20 07/24/20 00:40 00:45 00:50 Temperature Pulse Rate 113 H 112 H 126 H Pulse Rate [ From Monitor] Respiratory 26 H 35 H 35 H Rate Blood Pressure 103/49 103/49 120/63 O2 Sat by Pulse 96 95 96 Oximetry 07/24/20 07/24/20 07/24/20 00:55 01:00 01:05 Temperature Pulse Rate 121 H 111 H 126 H Pulse Rate [ From Monitor] Respiratory 33 H 33 H 23 Rate Blood Pressure 120/63 100/55 100/55 O2 Sat by Pulse 97 97 95 Oximetry 07/24/20 07/24/20 07/24/20 01:10 01:15 01:20 Temperature Pulse Rate 127 H 127 H 127 H Pulse Rate [ From Monitor] Respiratory 23 21 29 H Rate Blood Pressure 129/65 129/65 116/63 O2 Sat by Pulse 93 95 95 Oximetry 07/24/20 07/24/20 07/24/20 01:25 01:30 01:35 Temperature Pulse Rate 113 H 114 H 123 H Pulse Rate [ From Monitor] Respiratory 15 24 19 Rate Blood Pressure 116/63 101/56 101/56 O2 Sat by Pulse 95 93 93 Oximetry 07/24/20 07/24/20 07/24/20 01:40 01:45 01:50 Temperature Pulse Rate 125 H 124 H 130 H Pulse Rate [ From Monitor] Respiratory 13 8 L 15 Rate Blood Pressure 106/59 106/59 102/58 O2 Sat by Pulse 96 94 96 Oximetry 07/24/20 07/24/20 07/24/20 01:55 03:00 03:05 Temperature Pulse Rate 122 H 122 H 127 H Pulse Rate [ From Monitor] Respiratory 23 17 28 H Rate Blood Pressure 102/58 105/62 105/62 O2 Sat by Pulse 98 100 100 Oximetry 03/14/21 03/14/21 03/14/21 03:10 03:15 03:20 Temperature Pulse Rate 127 H 127 H 127 H Pulse Rate [ From Monitor] Respiratory 27 H 16 27 H Rate Blood Pressure 109/61 109/61 120/61 O2 Sat by Pulse 100 98 100 Oximetry 07/24/20 07/24/20 07/24/20 03:25 03:31 04:00 Temperature 98.3 F Pulse Rate 127 H 126 H 126 H Pulse Rate [ From Monitor] Respiratory 28 H 19 28 H Rate Blood Pressure 120/61 129/68 112/64 O2 Sat by Pulse 99 97 99 Oximetry 07/24/20 07/24/20 07/24/20 04:05 04:10 04:15 Temperature Pulse Rate 110 H 125 H 104 H Pulse Rate [ 125 H From Monitor] Respiratory 24 23 20 Rate Blood Pressure 112/64 119/71 119/71 O2 Sat by Pulse 100 99 100 Oximetry 07/24/20 07/24/20 07/24/20 04:20 04:25 04:30 Temperature Pulse Rate 109 H 126 H 126 H Pulse Rate [ From Monitor] Respiratory 23 17 26 H Rate Blood Pressure 113/57 113/57 124/66 O2 Sat by Pulse 99 99 100 Oximetry 07/24/20 07/24/20 07/24/20 04:35 04:39 04:40 Temperature Pulse Rate 127 H 126 H 126 H Pulse Rate [ From Monitor] Respiratory 22 24 Rate Blood Pressure 124/66 124/66 114/64 O2 Sat by Pulse 100 100 100 Oximetry 07/24/20 07/24/20 07/24/20 04:45 04:50 04:55 Temperature Pulse Rate 126 H 127 H 127 H Pulse Rate [ From Monitor] Respiratory 20 23 18 Rate Blood Pressure 114/64 136/70 124/66 O2 Sat by Pulse 100 99 100 Oximetry 07/24/20 07/24/20 07/24/20 05:00 05:05 05:10 Temperature Pulse Rate 127 H 120 H 124 H Pulse Rate [ From Monitor] Respiratory 25 H 20 21 Rate Blood Pressure 129/69 129/69 125/69 O2 Sat by Pulse 100 100 99 Oximetry 07/24/20 07/24/20 07/24/20 05:15 05:20 05:25 Temperature Pulse Rate 123 H 121 H 129 H Pulse Rate [ From Monitor] Respiratory 29 H 16 19 Rate Blood Pressure 125/69 120/67 120/67 O2 Sat by Pulse 99 100 100 Oximetry 07/24/20 07/24/20 07/24/20 05:26 05:30 05:35 Temperature Pulse Rate 124 H 120 H Pulse Rate [ 125 H From Monitor] Respiratory 21 21 22 Rate Blood Pressure 126/65 126/65 O2 Sat by Pulse 96 Oximetry 07/24/20 07/24/20 07/24/20 05:40 05:45 05:50 Temperature Pulse Rate 112 H 120 H 127 H Pulse Rate [ From Monitor] Respiratory 22 23 21 Rate Blood Pressure 112/63 112/63 134/68 O2 Sat by Pulse Oximetry 07/24/20 07/24/20 07/24/20 05:55 06:00 06:05 Temperature Pulse Rate 126 H 126 H 121 H Pulse Rate [ From Monitor] Respiratory 21 22 22 Rate Blood Pressure 120/67 119/63 119/63 O2 Sat by Pulse Oximetry 07/24/20 07/24/20 07/24/20 06:10 06:15 06:20 Temperature Pulse Rate 126 H 126 H 120 H Pulse Rate [ From Monitor] Respiratory 19 24 19 Rate Blood Pressure 110/59 110/59 118/58 O2 Sat by Pulse Oximetry 07/24/20 07/24/20 07/24/20 06:25 06:30 06:35 Temperature Pulse Rate 127 H 127 H 127 H Pulse Rate [ From Monitor] Respiratory 20 23 25 H Rate Blood Pressure 118/58 129/70 129/70 O2 Sat by Pulse Oximetry 07/24/20 06:40 Temperature Pulse Rate 128 H Pulse Rate [ From Monitor] Respiratory 26 H Rate Blood Pressure 108/60 O2 Sat by Pulse 98 Oximetry - Lab 07/24/20 06:40 07/24/20 06:40 Most recent lab results ABG pH 7.355 (7.320-7.450) 07/23/20 04:56 ABG pCO2 56.4 mm Hg 07/05/20 04:30 ABG pO2 151.9 mm Hg (80.0-90.0) H 07/05/20 04:30 ABG HCO3 26.8 mmol/L (20.0-26.0) H 07/05/20 04:30 ABG O2 Saturation 94.8 (0-100) 07/23/20 04:56 Calcium 8.9 mg/dL (8.4-10.2) 07/24/20 06:40 Phosphorus 9.40 mg/dL (2.5-4.5) H 06/30/20 03:50 Magnesium 2.70 mg/dL (1.7-2.3) H 06/18/20 20:33 Urine Creatinine 192.4 mg/dL (0.1-20.0) H 06/18/20 15:00 Urine Sodium 28 mmol/L 06/18/20 15:00 Medications & Allergies - Medications Allergies/Adverse Reactions: Allergies No Known Allergies Allergy (Unverified 06/17/20 14:24) Home Medications: Home Medications Medication Instructions Recorded Confirmed Last Taken Type Losartan/Hydrochlorothiazide 1 each PO QDAY 06/19/20 06/19/20 Unknown History [Losartan-Hctz 100-25 mg Tab] amLODIPine [Norvasc] 5 mg PO DAILY 06/19/20 06/19/20 Unknown History Active Medications: Generic Name Dose Route Start Last Admin Trade Name Freq PRN Reason Stop Dose Admin Acetaminophen 650 mg 06/17/20 14:17 07/03/20 09:16 Acetaminophen 325 Mg Tab PO 650 mg Q4H PRN Administration Pain MILD(1-3)/Fever >100.5/ROBERTS Albuterol 2.5 mg 07/19/20 12:15 Albuterol 2.5 Mg/3 Ml Nebu IH Q6HRT PRN Shortness Of Breath Amiodarone HCl 200 mg 07/19/20 14:00 07/23/20 22:11 Amiodarone 200 Mg Tab PO 200 mg BID CONNOR Administration Lipase/Protease/Amylase 1 each 06/19/20 12:15 Lipase 10,500/Protease 25,000/Amylase 43,750 (Units) Dr Shad BOYLE PRN PRN For Clogged Feeding Tube Ascorbic Acid 250 mg 06/17/20 22:00 07/23/20 22:11 Ascorbic Acid 250 Mg Tab PO 250 mg BID CONNOR Administration Cholecalciferol 1,000 unit 06/18/20 10:00 07/23/20 10:11 Cholecalciferol (Vit D3) 1000 Unit (25 Mcg) Tab PO 1,000 unit DAILY CONNOR Administration Docusate Sodium 100 mg 06/23/20 15:00 07/23/20 21:56 Docusate Sodium 100 Mg/10 Ml Oral Liqd FEEDTUBE Not Given BID CONNOR Fentanyl 50 mcg 06/18/20 01:02 07/09/20 00:20 Fentanyl 100 Mcg/2 Ml Inj IV 50 mcg Q10MIN PRN Administration ANALGESIA Heparin Sodium (Porcine) 5,000 unit 06/22/20 12:53 06/30/20 13:36 Heparin 10,000 Unit/1 Ml Vial IV 5,000 unit PAM PRN Administration hemodialysis Hydrophilic Ointment 1 applic 06/17/20 22:52 07/12/20 20:22 Lip Therapy Vaseline TP 1 applic Q2HR PRN Administration Dry Lips Propofol 1,000 mg in 100 mls @ 3.402 mls/hr 06/18/20 01:00 07/24/20 05:26 Diprivan 10 Mg/Ml IV 15 mcg/kg/min TITR CONNOR 10.206 mls/hr Administration Protocol 5 MCG/KG/MIN Fentanyl Citrate 2,000 mcg in 100 mls @ 8 mls/hr 06/18/20 02:00 07/24/20 06:49 Fentanyl Drip Premix IV 2 mcg/kg/hr TITR CONNOR 16 mls/hr Administration Protocol 1 MCG/KG/HR Norepinephrine 4 mg in 250 mls @ 7.5 mls/hr 07/08/20 02:06 07/24/20 08:16 Levophed Drip 4 Mg/Ns 250 Ml IV 5 mcg/min TITR CONNOR 18.75 mls/hr Titration Protocol 2 MCG/MIN Vasopressin 20 unit/ Sodium 101 mls @ 9.09 mls/hr 07/11/20 11:00 07/18/20 15:36 Chloride IV 0 units/min TITR CONNOR 0 mls/hr Titration Protocol 0.03 UNITS/MIN Sodium Chloride 100 mls @ 999 mls/hr 07/19/20 08:22 Nacl 0.9% IV PAM PRN Hypotension Ampicillin Sodium 2 gm in 100 mls @ 100 mls/hr 07/21/20 12:00 07/24/20 03:42 Ampicillin/Ns 2 Gm/100 Ml IV 08/02/20 12:59 100 mls/hr Q12H CONNOR Administration Protocol Potassium Chloride 10 meq in 100 mls @ 100 mls/hr 07/24/20 09:00 07/24/20 08:22 Kcl 10meq/100ml IV 07/24/20 12:59 100 mls/hr Q1H CONNOR Administration Insulin Human Regular 0 units 06/18/20 12:00 07/24/20 08:18 Insulin Regular, Human 100 Units/1 Ml SUB-Q Not Given Q6HR [facility] Protocol Multi-Ingred Cream/Lotion/Oil/Oint 1 applic 06/17/20 22:52 07/12/20 20:22 Mineral Oil/Petrolatum, White Ophth Oint 3.5 Gm OU 1 applic Q4HR PRN Administration Dry Eye(s) Ondansetron HCl 4 mg 06/17/20 14:17 Ondansetron 4 Mg/2 Ml Inj IV Q8H PRN Nausea And Vomiting Pantoprazole Sodium 40 mg 07/16/20 22:00 07/23/20 22:11 Pantoprazole 40 Mg Inj IV 40 mg BID CONNOR Administration Polyethylene Glycol 17 gm 06/23/20 15:00 07/23/20 10:11 Polyethylene Glycol 3350 17 Gm Powder PO 17 gm QDAY CONNOR Administration Quetiapine Fumarate 200 mg 06/28/20 13:00 07/23/20 22:10 Quetiapine 200 Mg Tab PO 200 mg BID CONNOR Administration Simple Syrup 15 ml 06/19/20 12:15 07/19/20 00:48 Simple Syrup 15 Ml FEEDTUBE 15 ml PRN PRN Administration Hypoglycemia Simple Syrup 30 ml 06/19/20 12:15 07/19/20 06:04 Simple Syrup 15 Ml FEEDTUBE 30 ml PRN PRN Administration Hypoglycemia Sodium Bicarbonate 325 mg 06/19/20 12:15 07/11/20 20:00 Sodium Bicarbonate 325 Mg Tab FEEDTUBE 325 mg PRN PRN Administration For Clogged Feeding Tube Sodium Bicarbonate 650 mg 07/04/20 10:00 07/24/20 08:17 Sodium Bicarbonate 650 Mg Tab PO 650 mg TID CONNOR Administration Sodium Chloride 10 ml 06/17/20 22:00 07/23/20 22:11 Sodium Chloride 0.9% 10 Ml Flush Syringe IV 10 ml BID CONNOR Administration Sodium Chloride 10 ml 06/17/20 14:17 Sodium Chloride 0.9% 10 Ml Flush Syringe IV PRN PRN LINE FLUSH Sodium Hypochlorite 1 applic 07/20/20 10:00 07/24/20 00:35 Sodium Hypochlorite, [place]'s 1/2 Strength (0.25%) 473 Ml Topical Soln TP 1 applicatio BID CONNOR Administration Sodium Polystyrene Sulfonate 15 gm 07/03/20 11:19 07/05/20 10:36 Sodium Polystyrene 15 Gm/60 Ml Oral Liqd PO 15 gm Q6HR PRN Administration Hyperkalemia Zinc Sulfate 220 mg 06/17/20 22:00 07/23/20 22:10 Zinc Sulfate 220 Mg Cap PO 220 mg BID CONNOR Administration
[2020-07-24] MEDS: CHOLECALCIFEROL (VIT D3) 1000 UNIT (25 mcg) TAB PO SCH (10:30)
[2020-07-24] MEDS: AMIODARONE 200 MG TAB PO SCH ×2 (10:30→21:32)
[2020-07-24] MEDS: QUEtiapine 200 MG TAB PO SCH ×2 (10:30→21:32)
[2020-07-24] MEDS: ZINC SULFATE 220 MG CAP PO SCH ×2 (10:31→21:33)
[2020-07-24] MEDS: PANTOPRAZOLE 40 MG INJ IV SCH ×2 (10:31→21:33)
[2020-07-24] MEDS: POLYETHYLENE GLYCOL 3350 17 GM POWDER PO SCH (10:33)
[2020-07-24] MEDS: DOCUSATE SODIUM 100 MG/10 ML ORAL LIQD FEEDTUBE SCH ×2 (10:33→21:33)
[2020-07-24] MEDS: ASCORBIC ACID 250 MG TAB PO SCH ×2 (10:36→21:33)
--- NOTE | 2020-07-24 11:08 | Progress Note ---
Assessment and Plan Cultures: SARS CoV2 PCR: Positive 06/17/2020 blood culture: No growth 06/17/2020 sputum culture: No growth 07/15/2020 blood culture: No growth 07/15/2020 fungal blood culture: Enterococcus faecalis 07/15/2020 tracheal aspirate culture: Usual respiratory otf 07/18/2020 blood culture: no growth A/P: 59-year-old male with obesity, obesity hypoventilation syndrome: #Severe sepsis with septic shock, ?also component of hemorrhagic shock. On and off pressors. #Enterococcus bacteremia: 07/15/2020 fungal blood culture: grew Enterococcus. ?gut translocation. Interestingly other blood cultures from that day were negative. CT abdomen showed some colitis. Since repeat blood cultures negative, will finish 14 days of abx. #Anemia, GI bleed: GI on board. #Critical COVID-19 pneumonia: s/p abx, steroids and remdesivir. #Acute hypoxic respiratory failure: on the vent. Also with pneumomediastinum, subcutaneous emphysema. #Leukemoid reaction: likely multifactorial. #GIRISH: remains on HD per nephrology. Renally dose abx. #Sacral decubitus: s/p debridement by Dr. Kirk on 07/20/2020. Recs: -pressor requirements dropping, continue IV Ampicillin, renally dosed, complete 14 days ending 08/01/2020 -repeat blood cultures have been negative, however, if pressor requirements persist or worsen, exchange out lines -monitor fever and WBC Tj Fajardo MD, FACP [facility] O: [phone] F: [phone] Subjective Date of service: 07/24/20 Principal diagnosis: ARF; Septic Shock; COVID-19 PNA; Atrial fibrillation; Obesity Interval history: Afebrile. Remains on the vent. Remains on pressors. Objective - Exam Narrative Exam: Physical Exam: Constitutional: sedated, intubated, on the vent Head, Ears, Nose: Normocephalic, atraumatic. External ears, nose normal Eyes: Conjunctivae/corneas clear. No icterus. No ptosis. Neck: intubated Oral: intubated Cardiovascular: S1, S2 + Respiratory: AE fair bilaterally and equal GI: Soft, bowel sounds + Musculoskeletal: No pedal edema, no cyanosis. Skin: No rash or abscess Hem/Lymphatic: No palpable cervical or supraclavicular nodes. No lymphangitis Psych: no agitation Neurological: sedated, intubated, on the vent, exam limited - Constitutional Vitals: Vital Signs Temp Pulse Resp BP Pulse Ox 98.6 F 111 H 22 129/66 99 07/24/20 08:00 07/24/20 09:10 07/24/20 09:10 07/24/20 09:10 07/24/20 09:10 Temperature -Last 24 Hours Temperature 98.6 F Temperature 98.3 F Temperature 98.4 F Temperature 97.6 F Temperature 98.1 F Temperature 98.7 F - Labs CBC & Chem 7: 07/24/20 06:40 07/24/20 06:40 Labs: Abnormal lab results 07/23/20 07/24/20 07/24/20 Range/Units 11:49 06:40 06:40 WBC 31.4 H (4.5-11.0) K/mm3 RBC 2.37 L (3.65-5.03) M/mm3 Hgb 7.2 L (11.8-15.2) gm/dl Hct 21.7 L (35.5-45.6) % RDW 17.0 H (13.2-15.2) % Potassium 3.1 L (3.6-5.0) mmol/L BUN 46 H (9-20) mg/dL Creatinine 2.5 H (0.8-1.3) mg/dL Glucose 109 H (75-100) mg/dL POC Glucose 107 H (70-105) mg/dL AST 46 H (5-40) units/L ALT 74 H (7-56) units/L Alkaline Phosphatase 180 H (35-129) units/L Total Protein 4.6 L (6.3-8.2) g/dL Albumin 2.0 L (3.9-5) g/dL
[2020-07-24 11:31] LABS: Total Cells Counted 100
[2020-07-24 11:32] LABS: Band Neutrophils # (Manual) 0.9 K/mm3
[2020-07-24 11:33] LABS: Anisocytosis Few; Platelet Estimate Consistent w Auto
--- NOTE | 2020-07-24 13:31 | Progress Note ---
Assessment and Plan Acute hypoxemic respiratory failure due to COVID-19 Severe COVID infection Severe Sepsis with shock Bilateral pneumonia Acute kidney injury (GIRISH) with acute tubular necrosis (ATN) Elevated liver enzymes Obesity - keep FiO2 at 40% - keep peep at 10 (reduce to 8 next 24-48 hours) - continue wound care per WCN / RN - continue on bariatric bed - await surgery input re: trach / PEG - continue care as below otherwise; - continue to avoid supine position as much as possible - adjust ant-infective's per ID rec's (Ampicillin) - continue bid protonix - wean vasopressors for target MAP > 65 mmHg - continue daily SAT's & SBT's as tolerated - continue tube feeds at goal rate as tolerated - continue HD/UF per nephrology team for toxin and volume clearance - continue bowel regimen - Continue to wean supplemental oxygen for O2 sats >92% - Monitor blood pressure closely while optimizing sedation,wean vasopressor support for MAP > 65 mmHg - VAP bundle addressed, aspiration precautions HOB >40 - continue lung protective strategies, permissive hypercapnic acceptable. - continue bronchodilators with pulmonary hygiene per RT - wean per pulmonary driven protocols otherwise - accuchecks with glycemic control per SSI (While critically ill target blood glucose of 140-180 mg/dL; avoid hypoglycemia) - sedation prn for target RASS -1 to -2 - continue enteral nutritional support at goal rate as tolerated - on antibiotics per ID recommendations - follow clinically re: fevers / WBC - Monitor liver function test ,avoid hepatotoxic agents - azotemia per nephrology rec's - Avoid nephrotoxins, renally dose all medications, conservative fluid management - continue to avoid benzodiazepines, reduce the possibility of delirium, - prn analgesia per CPOT score - Maintenance of sleep-wake cycle, avoid delirium - Stress ulcer prophylaxis, Famotidine - PT/OT/ROM exercises - Mobility protocols for pressure ulcer prevention - CXR, ABG in am - CBC, CMP in am - Supportive transfusions to keep HgB >7g/dL - Monitor hemodynamics closely - continue other care per attending / other consultants COVID SPECIFIC INTERVENTIONS - s/p steroids: Dexamethasone - completed Remdesivir - monitor inflammatory markers prn - ferritin, D-dimer, CRP, LDH per facility protocol - continue anticoagulation per System Protocol based on d-dimer (on hold due to bleeding) - continue contact and airborne isolation CONDITION: CRITICAL PROGNOSIS: GUARDED CODE STATUS: FULL CODE The high probability of a clinically significant, sudden or life-threatening deterioration of the [respiratory, cardiovascular, hematologic & neurologic] system(s) required my full and direct attention, intervention and personal management. The aggregate critical care time was [32] minutes without overlap. Time includes spent on; [x] Data Review and interpretation [x] Patient assessment and monitoring of vital signs [x] Documentation [x] Medication orders and management He was evaluated in the context of the global COVID-19 pandemic, which necessitated consideration that the patient might be at risk for infection with the virus that causes COVID-19. Institutional protocols and algorithms that pertain to the evaluation of patients at risk for COVID-19 are in a state of rapid change based on information released by regulatory bodies including the CDC and federal and state organizations. These policies and algorithms were f ollowed during the patient's care in the ICU Please note that these policies, procedures and recommendations changed on a rapid basis. Subjective Date of service: 07/24/20 Principal diagnosis: ARF; Septic Shock; COVID-19 PNA; Atrial fibrillation; Obesity Interval history: Patient is seen today for: Ac hypoxemic respiratory failure; COVID-19; Severe Sepsis with shock; Zackery. pneumonia; GIRISH; Elevated liver enzymes; Obesity Seen and examined at bedside; 24hour events reviewed; nursing and respiratory care staff consulted; no adverse overnight events reported to me; resting in bed; remains on MVS; Levophed down to 2 marcelino's/min; FiO2 remains at 40% with peep at 10; surgery consult placed for trach & PEG Objective Vital Signs - 12hr 07/24/20 07/24/20 07/24/20 00:30 00:35 00:40 Temperature Pulse Rate 127 H 129 H 113 H Pulse Rate [ 125 H From Monitor] Respiratory 29 H 27 H 26 H Rate Blood Pressure 131/69 108/50 103/49 O2 Sat by Pulse 99 97 96 Oximetry 07/24/20 07/24/20 07/24/20 00:45 00:50 00:55 Temperature Pulse Rate 112 H 126 H 121 H Pulse Rate [ From Monitor] Respiratory 35 H 35 H 33 H Rate Blood Pressure 103/49 120/63 120/63 O2 Sat by Pulse 95 96 97 Oximetry 07/24/20 07/24/20 07/24/20 01:00 01:05 01:10 Temperature Pulse Rate 111 H 126 H 127 H Pulse Rate [ From Monitor] Respiratory 33 H 23 23 Rate Blood Pressure 100/55 100/55 129/65 O2 Sat by Pulse 97 95 93 Oximetry 07/24/20 07/24/20 07/24/20 01:15 01:20 01:25 Temperature Pulse Rate 127 H 127 H 113 H Pulse Rate [ From Monitor] Respiratory 21 29 H 15 Rate Blood Pressure 129/65 116/63 116/63 O2 Sat by Pulse 95 95 95 Oximetry 07/24/20 07/24/20 07/24/20 01:30 01:35 01:40 Temperature Pulse Rate 114 H 123 H 125 H Pulse Rate [ From Monitor] Respiratory 24 19 13 Rate Blood Pressure 101/56 101/56 106/59 O2 Sat by Pulse 93 93 96 Oximetry 07/24/20 07/24/20 07/24/20 01:45 01:50 01:55 Temperature Pulse Rate 124 H 130 H 122 H Pulse Rate [ From Monitor] Respiratory 8 L 15 23 Rate Blood Pressure 106/59 102/58 102/58 O2 Sat by Pulse 94 96 98 Oximetry 07/24/20 07/24/20 07/24/20 03:00 03:05 03:10 Temperature Pulse Rate 122 H 127 H 127 H Pulse Rate [ From Monitor] Respiratory 17 28 H 27 H Rate Blood Pressure 105/62 105/62 109/61 O2 Sat by Pulse 100 100 100 Oximetry 07/24/20 07/24/20 07/24/20 03:15 03:20 03:25 Temperature Pulse Rate 127 H 127 H 127 H Pulse Rate [ From Monitor] Respiratory 16 27 H 28 H Rate Blood Pressure 109/61 120/61 120/61 O2 Sat by Pulse 98 100 99 Oximetry 07/24/20 07/24/20 07/24/20 03:31 04:00 04:05 Temperature 98.3 F Pulse Rate 126 H 126 H 110 H Pulse Rate [ From Monitor] Respiratory 19 28 H 24 Rate Blood Pressure 129/68 112/64 112/64 O2 Sat by Pulse 97 99 100 Oximetry 07/24/20 07/24/20 07/24/20 04:10 04:15 04:20 Temperature Pulse Rate 125 H 104 H 109 H Pulse Rate [ 125 H From Monitor] Respiratory 23 20 23 Rate Blood Pressure 119/71 119/71 113/57 O2 Sat by Pulse 99 100 99 Oximetry 03/1407/24/20 07/24/20 04:25 04:30 04:35 Temperature Pulse Rate 126 H 126 H 127 H Pulse Rate [ From Monitor] Respiratory 17 26 H 22 Rate Blood Pressure 113/57 124/66 124/66 O2 Sat by Pulse 99 100 100 Oximetry 07/24/20 07/24/20 07/24/20 04:39 04:40 04:45 Temperature Pulse Rate 126 H 126 H 126 H Pulse Rate [ From Monitor] Respiratory 24 20 Rate Blood Pressure 124/66 114/64 114/64 O2 Sat by Pulse 100 100 100 Oximetry 07/24/20 07/24/20 07/24/20 04:50 04:55 05:00 Temperature Pulse Rate 127 H 127 H 127 H Pulse Rate [ From Monitor] Respiratory 23 18 25 H Rate Blood Pressure 136/70 124/66 129/69 O2 Sat by Pulse 99 100 100 Oximetry 07/24/20 07/24/20 07/24/20 05:05 05:10 05:15 Temperature Pulse Rate 120 H 124 H 123 H Pulse Rate [ From Monitor] Respiratory 20 21 29 H Rate Blood Pressure 129/69 125/69 125/69 O2 Sat by Pulse 100 99 99 Oximetry 07/24/20 07/24/20 07/24/20 05:20 05:25 05:26 Temperature Pulse Rate 121 H 129 H Pulse Rate [ 125 H From Monitor] Respiratory 16 19 21 Rate Blood Pressure 120/67 120/67 O2 Sat by Pulse 100 100 96 Oximetry 07/24/20 07/24/20 07/24/20 05:30 05:35 05:40 Temperature Pulse Rate 124 H 120 H 112 H Pulse Rate [ From Monitor] Respiratory 21 22 22 Rate Blood Pressure 126/65 126/65 112/63 O2 Sat by Pulse Oximetry 07/24/20 07/24/20 07/24/20 05:45 05:50 05:55 Temperature Pulse Rate 120 H 127 H 126 H Pulse Rate [ From Monitor] Respiratory 23 21 21 Rate Blood Pressure 112/63 134/68 120/67 O2 Sat by Pulse Oximetry 07/24/20 07/24/20 07/24/20 06:00 06:05 06:10 Temperature Pulse Rate 126 H 121 H 126 H Pulse Rate [ From Monitor] Respiratory 22 22 19 Rate Blood Pressure 119/63 119/63 110/59 O2 Sat by Pulse Oximetry 0307/24/20 07/24/20 06:15 06:20 06:25 Temperature Pulse Rate 126 H 120 H 127 H Pulse Rate [ From Monitor] Respiratory 24 19 20 Rate Blood Pressure 110/59 118/58 118/58 O2 Sat by Pulse Oximetry 07/24/20 07/24/20 07/24/20 06:30 06:35 06:40 Temperature Pulse Rate 127 H 127 H 128 H Pulse Rate [ From Monitor] Respiratory 23 25 H 26 H Rate Blood Pressure 129/70 129/70 108/60 O2 Sat by Pulse 98 Oximetry 07/24/20 07/24/20 07/24/20 06:45 06:50 06:55 Temperature Pulse Rate 129 H 129 H 122 H Pulse Rate [ From Monitor] Respiratory 23 18 22 Rate Blood Pressure 108/60 105/66 105/66 O2 Sat by Pulse Oximetry 07/24/20 07/24/20 07/24/20 07:00 07:05 07:10 Temperature Pulse Rate 126 H 121 H 111 H Pulse Rate [ From Monitor] Respiratory 19 19 26 H Rate Blood Pressure 96/72 96/72 118/69 O2 Sat by Pulse Oximetry 07/24/20 07/24/20 07/24/20 07:15 07:21 07:25 Temperature Pulse Rate 121 H 116 H 121 H Pulse Rate [ From Monitor] Respiratory 21 25 H 20 Rate Blood Pressure 118/69 129/71 129/71 O2 Sat by Pulse 99 99 Oximetry 07/24/20 07/24/20 07/24/20 07:30 07:36 07:40 Temperature Pulse Rate 127 H 112 H 127 H Pulse Rate [ From Monitor] Respiratory 24 18 17 Rate Blood Pressure 129/71 130/66 130/66 O2 Sat by Pulse 99 99 94 Oximetry 07/24/20 07/24/20 07/24/20 07:46 07:50 07:56 Temperature Pulse Rate 111 H 116 H 128 H Pulse Rate [ From Monitor] Respiratory 19 20 22 Rate Blood Pressure 121/70 142/67 O2 Sat by Pulse 100 100 100 Oximetry 07/24/20 07/24/20 07/24/20 08:00 08:06 08:10 Temperature 98.6 F Pulse Rate 111 H 121 H 112 H Pulse Rate [ 125 H From Monitor] Respiratory 31 H 19 21 Rate Blood Pressure 131/63 131/63 133/64 O2 Sat by Pulse 98 100 100 Oximetry 07/24/20 07/24/20 07/24/20 08:16 08:20 08:26 Temperature Pulse Rate 118 H 112 H 110 H Pulse Rate [ From Monitor] Respiratory 21 25 H 18 Rate Blood Pressure 133/64 120/66 120/66 O2 Sat by Pulse 100 99 99 Oximetry 07/24/20 07/24/20 07/24/20 08:30 08:36 08:40 Temperature Pulse Rate 111 H 113 H 113 H Pulse Rate [ From Monitor] Respiratory 19 22 21 Rate Blood Pressure 127/63 127/63 132/68 O2 Sat by Pulse 99 99 100 Oximetry 07/24/20 07/24/20 07/24/20 08:46 08:50 08:56 Temperature Pulse Rate 112 H 111 H 112 H Pulse Rate [ From Monitor] Respiratory 17 24 26 H Rate Blood Pressure 132/68 120/67 120/67 O2 Sat by Pulse 99 99 98 Oximetry 07/24/20 07/24/20 07/24/20 09:00 09:06 09:10 Temperature Pulse Rate 127 H 128 H 111 H Pulse Rate [ From Monitor] Respiratory 19 22 22 Rate Blood Pressure 131/67 131/67 129/66 O2 Sat by Pulse 97 98 99 Oximetry 07/24/20 07/24/20 07/24/20 09:16 09:20 09:26 Temperature Pulse Rate 115 H 127 H 119 H Pulse Rate [ From Monitor] Respiratory 26 H 20 19 Rate Blood Pressure 129/66 136/73 136/73 O2 Sat by Pulse 98 98 98 Oximetry 07/24/20 07/24/20 07/24/20 09:30 09:36 09:40 Temperature Pulse Rate 128 H 109 H 114 H Pulse Rate [ From Monitor] Respiratory 19 28 H 22 Rate Blood Pressure 137/70 137/70 125/56 O2 Sat by Pulse 97 98 98 Oximetry 07/24/20 07/24/20 07/24/20 09:46 09:50 09:56 Temperature Pulse Rate 129 H 127 H 115 H Pulse Rate [ From Monitor] Respiratory 41 H 25 H 20 Rate Blood Pressure 125/56 129/66 129/66 O2 Sat by Pulse 96 99 98 Oximetry 07/24/20 07/24/20 07/24/20 10:00 10:06 10:10 Temperature Pulse Rate 121 H 128 H 122 H Pulse Rate [ From Monitor] Respiratory 20 14 21 Rate Blood Pressure 130/67 130/67 137/67 O2 Sat by Pulse 98 98 97 Oximetry 07/24/20 07/24/20 07/24/20 10:16 10:20 10:26 Temperature Pulse Rate 127 H 128 H 122 H Pulse Rate [ From Monitor] Respiratory 18 18 20 Rate Blood Pressure 137/67 133/73 133/73 O2 Sat by Pulse 97 98 97 Oximetry 07/24/20 07/24/20 07/24/20 10:30 10:36 10:40 Temperature Pulse Rate 129 H 129 H 123 H Pulse Rate [ From Monitor] Respiratory 20 22 23 Rate Blood Pressure 128/72 128/72 125/69 O2 Sat by Pulse 96 97 97 Oximetry 07/24/20 07/24/20 07/24/20 10:46 10:50 10:56 Temperature Pulse Rate 122 H 127 H 129 H Pulse Rate [ From Monitor] Respiratory 20 25 H 41 H Rate Blood Pressure 125/69 109/58 109/58 O2 Sat by Pulse 98 98 94 Oximetry 07/24/20 07/24/20 07/24/20 11:00 11:06 11:10 Temperature Pulse Rate 128 H 129 H 128 H Pulse Rate [ From Monitor] Respiratory 33 H 30 H 42 H Rate Blood Pressure 110/53 110/53 110/55 O2 Sat by Pulse 95 94 93 Oximetry 07/24/20 07/24/20 07/24/20 11:16 11:20 11:26 Temperature Pulse Rate 113 H 124 H 122 H Pulse Rate [ From Monitor] Respiratory 24 24 22 Rate Blood Pressure 110/55 88/44 88/44 O2 Sat by Pulse 93 94 95 Oximetry 07/24/20 07/24/20 07/24/20 11:30 11:36 11:40 Temperature Pulse Rate 123 H 122 H 119 H Pulse Rate [ From Monitor] Respiratory 22 20 23 Rate Blood Pressure 105/56 105/56 102/56 O2 Sat by Pulse 95 96 96 Oximetry 07/24/20 07/24/20 07/24/20 11:46 11:50 11:56 Temperature Pulse Rate 127 H 125 H 125 H Pulse Rate [ From Monitor] Respiratory 18 19 20 Rate Blood Pressure 102/56 92/51 92/51 O2 Sat by Pulse 95 96 95 Oximetry 07/24/20 07/24/20 07/24/20 11:57 12:00 12:06 Temperature Pulse Rate 127 H 123 H 129 H Pulse Rate [ From Monitor] Respiratory 17 19 Rate Blood Pressure 104/50 104/50 104/50 O2 Sat by Pulse 96 95 96 Oximetry 07/24/20 12:10 Temperature Pulse Rate 122 H Pulse Rate [ From Monitor] Respiratory 18 Rate Blood Pressure 95/53 O2 Sat by Pulse 96 Oximetry Constitutional: appears uncomfortable, other (morbidly obese, atraumatic, normocephalic, mild resp distress, orally intubated) Eyes: non-icteric ENT: oropharynx dry, other (ETT 24 cm TROY ) Neck: supple, no lymphadenopathy, other (Large , short neck) Effort: mildly labored Ascultation: Bilateral: rhonchi Percussion: Bilateral: not dull Cardiovascular: irregular rhythm, other (S1,S2) Gastrointestinal: normoactive bowel sounds, soft, non-tender, non-distended (protuberant), other (lizeth-rectal tube slow oozing) Integumentary: rash, other (Femoral CVC, Newell catheter) Extremities: pink and warm, pulses normal, no ischemia or petechiae, edema (trace to 1+) Neurologic: non-focal exam (grossly), pupils equal and round, CN II-XII normal, other (unable to assess, sedated) Psychiatric: other (unable to assess, sedated) CBC and BMP: 07/25/20 05:39 07/25/20 05:39 ABG, PT/INR, D-dimer: ABG ABG pH 7.355 (7.320-7.450) 07/23/20 04:56 POC ABG pCO2 46.9 mmHg (32.0-48.0) 07/23/20 04:56 ABG pCO2 56.4 mm Hg 07/05/20 04:30 POC ABG pO2 75.7 mmHg (83-108) L 07/23/20 04:56 ABG pO2 151.9 mm Hg (80.0-90.0) H 07/05/20 04:30 POC ABG HCO3 25.6 07/23/20 04:56 ABG O2 Saturation 94.8 (0-100) 07/23/20 04:56 PT/INR, D-dimer PT 18.2 Sec. (12.2-14.9) H 07/17/20 15:25 INR 1.52 (0.87-1.13) H 07/17/20 15:25 D-Dimer 6608.00 ng/mlDDU (0-234) H 07/03/20 14:50 Abnormal lab findings: Abnormal Labs 06/17/20 06/17/20 06/17/20 12:33 12:33 12:33 WBC 19.5 H RBC 5.18 H Hgb 15.5 H Hct MCHC RDW Plt Count Lymph % (Auto) 3.8 L Nelson % (Auto) Lymph # (Auto) 0.7 L Nelson # (Auto) Eos # (Auto) Seg Neutrophils % Seg Neuts % (Manual) 99.0 H Lymphocytes % (Manual) 1.0 L Monocytes % (Manual) Nucleated RBC % Seg Neutrophils # 18.2 H Seg Neutrophils # Man 19.3 H Lymphocytes # (Manual) 0.2 L Monocytes # (Manual) Eosinophils # (Manual) Basophils # (Manual) PT 16.5 H INR 1.33 H APTT D-Dimer 1025.04 H Heparin Anti-Xa Level ABG pH POC ABG pCO2 POC ABG pO2 ABG pO2 ABG HCO3 ABG Hemoglobin ABG Oxyhemoglobin ABG Sodium ABG Potassium ABG Chloride ABG Glucose Carboxyhemoglobin Sodium 130 L Potassium 3.4 L Chloride 95.0 L Carbon Dioxide BUN 21 H Creatinine Glucose 137 H POC Glucose Lactic Acid Calcium 7.9 L Phosphorus Magnesium Ferritin Direct Bilirubin AST 84 H ALT 67 H Alkaline Phosphatase Lactate Dehydrogenase 437 H Total Creatine Kinase 310 H C-Reactive Protein 27.90 H Total Protein Albumin 2.9 L Triglycerides Arterial Blood Glucose Arterial Blood Ionized Calcium Urine Creatinine Urine Chloride Vancomycin Trough Coronavirus (PCR) Crossmatch 06/17/20 06/17/20 06/17/20 12:33 12:33 14:48 WBC RBC Hgb Hct MCHC RDW Plt Count Lymph % (Auto) Nelson % (Auto) Lymph # (Auto) Nelson # (Auto) Eos # (Auto) Seg Neutrophils % Seg Neuts % (Manual) Lymphocytes % (Manual) Monocytes % (Manual) Nucleated RBC % Seg Neutrophils # Seg Neutrophils # Man Lymphocytes # (Manual) Monocytes # (Manual) Eosinophils # (Manual) Basophils # (Manual) PT INR APTT D-Dimer Heparin Anti-Xa Level ABG pH POC ABG pCO2 POC ABG pO2 ABG pO2 ABG HCO3 ABG Hemoglobin ABG Oxyhemoglobin ABG Sodium ABG Potassium ABG Chloride ABG Glucose Carboxyhemoglobin Sodium Potassium Chloride Carbon Dioxide BUN Creatinine Glucose POC Glucose Lactic Acid 2.50 H* 2.20 H* Calcium Phosphorus Magnesium Ferritin 2297.0 H Direct Bilirubin AST ALT Alkaline Phosphatase Lactate Dehydrogenase Total Creatine Kinase C-Reactive Protein Total Protein Albumin Triglycerides Arterial Blood Glucose Arterial Blood Ionized Calcium Urine Creatinine Urine Chloride Vancomycin Trough Coronavirus (PCR) Crossmatch 06/17/20 06/17/20 06/17/20 14:48 14:48 14:48 WBC RBC Hgb Hct MCHC RDW Plt Count Lymph % (Auto) Nelson % (Auto) Lymph # (Auto) Nelson # (Auto) Eos # (Auto) Seg Neutrophils % Seg Neuts % (Manual) Lymphocytes % (Manual) Monocytes % (Manual) Nucleated RBC % Seg Neutrophils # Seg Neutrophils # Man Lymphocytes # (Manual) Monocytes # (Manual) Eosinophils # (Manual) Basophils # (Manual) PT INR APTT D-Dimer 939.89 H Heparin Anti-Xa Level ABG pH POC ABG pCO2 POC ABG pO2 ABG pO2 ABG HCO3 ABG Hemoglobin ABG Oxyhemoglobin ABG Sodium ABG Potassium ABG Chloride ABG Glucose Carboxyhemoglobin Sodium Potassium Chloride Carbon Dioxide BUN Creatinine Glucose 141 H POC Glucose Lactic Acid Calcium Phosphorus Magnesium Ferritin > 2000.0 H Direct Bilirubin AST ALT Alkaline Phosphatase Lactate Dehydrogenase 503 H Total Creatine Kinase C-Reactive Protein 24.70 H Total Protein Albumin Triglycerides Arterial Blood Glucose Arterial Blood Ionized Calcium Urine Creatinine Urine Chloride Vancomycin Trough Coronavirus (PCR) Crossmatch 06/17/20 06/17/20 06/17/20 16:54 19:39 23:43 WBC RBC Hgb Hct MCHC RDW Plt Count Lymph % (Auto) Nelson % (Auto) Lymph # (Auto) Nelson # (Auto) Eos # (Auto) Seg Neutrophils % Seg Neuts % (Manual) Lymphocytes % (Manual) Monocytes % (Manual) Nucleated RBC % Seg Neutrophils # Seg Neutrophils # Man Lymphocytes # (Manual) Monocytes # (Manual) Eosinophils # (Manual) Basophils # (Manual) PT INR APTT D-Dimer Heparin Anti-Xa Level ABG pH 7.571 H POC ABG pCO2 24.3 L POC ABG pO2 41.6 L ABG pO2 ABG HCO3 ABG Hemoglobin ABG Oxyhemoglobin 84.0 L ABG Sodium 131.0 L ABG Potassium ABG Chloride ABG Glucose 163 H Carboxyhemoglobin Sodium Potassium Chloride Carbon Dioxide BUN Creatinine Glucose POC Glucose 185 H Lactic Acid 2.10 H* Calcium Phosphorus Magnesium Ferritin Direct Bilirubin AST ALT Alkaline Phosphatase Lactate Dehydrogenase Total Creatine Kinase C-Reactive Protein Total Protein Albumin Triglycerides Arterial Blood Glucose 163 H Arterial Blood Ionized Calcium 4.4 L Urine Creatinine Urine Chloride Vancomycin Trough Coronavirus (PCR) Crossmatch 06/18/20 06/18/20 06/18/20 00:17 00:23 03:55 WBC RBC Hgb Hct MCHC RDW Plt Count Lymph % (Auto) Nelson % (Auto) Lymph # (Auto) Nelson # (Auto) Eos # (Auto) Seg Neutrophils % Seg Neuts % (Manual) Lymphocytes % (Manual) Monocytes % (Manual) Nucleated RBC % Seg Neutrophils # Seg Neutrophils # Man Lymphocytes # (Manual) Monocytes # (Manual) Eosinophils # (Manual) Basophils # (Manual) PT INR APTT D-Dimer Heparin Anti-Xa Level ABG pH POC ABG pCO2 POC ABG pO2 56.5 L 48.3 L ABG pO2 ABG HCO3 ABG Hemoglobin ABG Oxyhemoglobin 86.3 L 81.7 L ABG Sodium 132.9 L 131.0 L ABG Potassium ABG Chloride ABG Glucose 189 H 161 H Carboxyhemoglobin 0.4 L Sodium Potassium Chloride Carbon Dioxide BUN Creatinine Glucose POC Glucose Lactic Acid 3.80 H* Calcium Phosphorus Magnesium Ferritin Direct Bilirubin AST ALT Alkaline Phosphatase Lactate Dehydrogenase Total Creatine Kinase C-Reactive Protein Total Protein Albumin Triglycerides Arterial Blood Glucose 189 H 161 H Arterial Blood Ionized Calcium 4.3 L 4.2 L Urine Creatinine Urine Chloride Vancomycin Trough Coronavirus (PCR) Crossmatch 06/18/20 06/18/20 06/18/20 05:39 05:39 05:39 WBC 26.2 H RBC Hgb Hct MCHC RDW Plt Count Lymph % (Auto) Nelson % (Auto) Lymph # (Auto) Nelson # (Auto) Eos # (Auto) Seg Neutrophils % Seg Neuts % (Manual) 90.0 H Lymphocytes % (Manual) 5.0 L Monocytes % (Manual) Nucleated RBC % Seg Neutrophils # Seg Neutrophils # Man 23.6 H Lymphocytes # (Manual) Monocytes # (Manual) 1.3 H Eosinophils # (Manual) Basophils # (Manual) PT INR APTT D-Dimer Heparin Anti-Xa Level ABG pH POC ABG pCO2 POC ABG pO2 ABG pO2 ABG HCO3 ABG Hemoglobin ABG Oxyhemoglobin ABG Sodium ABG Potassium ABG Chloride ABG Glucose Carboxyhemoglobin Sodium 135 L Potassium Chloride 97.5 L Carbon Dioxide 21 L BUN 39 H Creatinine 1.7 H D Glucose 168 H POC Glucose Lactic Acid 3.40 H* Calcium 7.2 L Phosphorus Magnesium Ferritin Direct Bilirubin AST ALT Alkaline Phosphatase Lactate Dehydrogenase Total Creatine Kinase C-Reactive Protein Total Protein Albumin Triglycerides Arterial Blood Glucose Arterial Blood Ionized Calcium Urine Creatinine Urine Chloride Vancomycin Trough Coronavirus (PCR) Crossmatch 06/18/20 06/18/20 06/18/20 07:24 09:00 10:10 WBC RBC Hgb Hct MCHC RDW Plt Count Lymph % (Auto) Nelson % (Auto) Lymph # (Auto) Nelson # (Auto) Eos # (Auto) Seg Neutrophils % Seg Neuts % (Manual) Lymphocytes % (Manual) Monocytes % (Manual) Nucleated RBC % Seg Neutrophils # Seg Neutrophils # Man Lymphocytes # (Manual) Monocytes # (Manual) Eosinophils # (Manual) Basophils # (Manual) PT INR APTT D-Dimer Heparin Anti-Xa Level ABG pH POC ABG pCO2 POC ABG pO2 ABG pO2 ABG HCO3 ABG Hemoglobin ABG Oxyhemoglobin ABG Sodium ABG Potassium ABG Chloride ABG Glucose Carboxyhemoglobin Sodium Potassium Chloride Carbon Dioxide BUN Creatinine Glucose POC Glucose Lactic Acid 2.90 H* 3.20 H* Calcium Phosphorus Magnesium Ferritin Direct Bilirubin AST ALT Alkaline Phosphatase Lactate Dehydrogenase Total Creatine Kinase C-Reactive Protein Total Protein Albumin Triglycerides Arterial Blood Glucose Arterial Blood Ionized Calcium Urine Creatinine Urine Chloride Vancomycin Trough Coronavirus (PCR) Positive A Crossmatch 06/18/20 06/18/20 06/18/20 11:58 14:43 15:00 WBC RBC Hgb Hct MCHC RDW Plt Count Lymph % (Auto) Nelson % (Auto) Lymph # (Auto) Nelson # (Auto) Eos # (Auto) Seg Neutrophils % Seg Neuts % (Manual) Lymphocytes % (Manual) Monocytes % (Manual) Nucleated RBC % Seg Neutrophils # Seg Neutrophils # Man Lymphocytes # (Manual) Monocytes # (Manual) Eosinophils # (Manual) Basophils # (Manual) PT INR APTT D-Dimer Heparin Anti-Xa Level ABG pH 7.303 L POC ABG pCO2 POC ABG pO2 82.3 L ABG pO2 ABG HCO3 ABG Hemoglobin ABG Oxyhemoglobin ABG Sodium 135.3 L ABG Potassium ABG Chloride ABG Glucose 215 H Carboxyhemoglobin 0.3 L Sodium Potassium Chloride Carbon Dioxide BUN Creatinine Glucose POC Glucose 209 H Lactic Acid Calcium Phosphorus Magnesium Ferritin Direct Bilirubin AST ALT Alkaline Phosphatase Lactate Dehydrogenase Total Creatine Kinase C-Reactive Protein Total Protein Albumin Triglycerides Arterial Blood Glucose 215 H Arterial Blood Ionized Calcium 4.2 L Urine Creatinine 192.4 H Urine Chloride 31.1 L Vancomycin Trough Coronavirus (PCR) Crossmatch 06/18/20 06/18/20 06/18/20 17:16 19:44 20:33 WBC RBC Hgb Hct MCHC RDW Plt Count Lymph % (Auto) Nelson % (Auto) Lymph # (Auto) Nelson # (Auto) Eos # (Auto) Seg Neutrophils % Seg Neuts % (Manual) Lymphocytes % (Manual) Monocytes % (Manual) Nucleated RBC % Seg Neutrophils # Seg Neutrophils # Man Lymphocytes # (Manual) Monocytes # (Manual) Eosinophils # (Manual) Basophils # (Manual) PT INR APTT D-Dimer Heparin Anti-Xa Level ABG pH POC ABG pCO2 POC ABG pO2 ABG pO2 ABG HCO3 ABG Hemoglobin ABG Oxyhemoglobin ABG Sodium ABG Potassium ABG Chloride ABG Glucose Carboxyhemoglobin Sodium Potassium Chloride Carbon Dioxide BUN Creatinine Glucose POC Glucose 182 H Lactic Acid 3.00 H* Calcium Phosphorus Magnesium 2.70 H Ferritin Direct Bilirubin AST ALT Alkaline Phosphatase Lactate Dehydrogenase Total Creatine Kinase C-Reactive Protein Total Protein Albumin Triglycerides Arterial Blood Glucose Arterial Blood Ionized Calcium Urine Creatinine Urine Chloride Vancomycin Trough Coronavirus (PCR) Crossmatch 06/18/20 06/19/20 06/19/20 23:43 04:00 04:00 WBC 31.6 H RBC Hgb Hct MCHC RDW Plt Count Lymph % (Auto) Nelson % (Auto) Lymph # (Auto) Nelson # (Auto) Eos # (Auto) Seg Neutrophils % Seg Neuts % (Manual) 98.0 H Lymphocytes % (Manual) 0.5 L Monocytes % (Manual) Nucleated RBC % Seg Neutrophils # Seg Neutrophils # Man 31.0 H Lymphocytes # (Manual) 0.2 L Monocytes # (Manual) Eosinophils # (Manual) Basophils # (Manual) PT INR APTT D-Dimer Heparin Anti-Xa Level ABG pH POC ABG pCO2 POC ABG pO2 ABG pO2 ABG HCO3 ABG Hemoglobin ABG Oxyhemoglobin ABG Sodium ABG Potassium ABG Chloride ABG Glucose Carboxyhemoglobin Sodium Potassium Chloride Carbon Dioxide BUN 56 H Creatinine 1.6 H Glucose 176 H POC Glucose 149 H Lactic Acid Calcium 7.0 L Phosphorus Magnesium Ferritin Direct Bilirubin AST 244 H ALT 159 H Alkaline Phosphatase Lactate Dehydrogenase Total Creatine Kinase C-Reactive Protein Total Protein 4.9 L D Albumin 2.5 L Triglycerides Arterial Blood Glucose Arterial Blood Ionized Calcium Urine Creatinine Urine Chloride Vancomycin Trough Coronavirus (PCR) Crossmatch 06/19/20 06/19/20 06/19/20 04:00 05:44 11:42 WBC RBC Hgb Hct MCHC RDW Plt Count Lymph % (Auto) Nelson % (Auto) Lymph # (Auto) Nelson # (Auto) Eos # (Auto) Seg Neutrophils % Seg Neuts % (Manual) Lymphocytes % (Manual) Monocytes % (Manual) Nucleated RBC % Seg Neutrophils # Seg Neutrophils # Man Lymphocytes # (Manual) Monocytes # (Manual) Eosinophils # (Manual) Basophils # (Manual) PT INR APTT D-Dimer Heparin Anti-Xa Level ABG pH 7.265 L POC ABG pCO2 51.8 H POC ABG pO2 65.1 L ABG pO2 ABG HCO3 ABG Hemoglobin ABG Oxyhemoglobin ABG Sodium ABG Potassium ABG Chloride ABG Glucose 184 H Carboxyhemoglobin Sodium Potassium Chloride Carbon Dioxide BUN Creatinine Glucose POC Glucose 156 H 191 H Lactic Acid Calcium Phosphorus Magnesium Ferritin Direct Bilirubin AST ALT Alkaline Phosphatase Lactate Dehydrogenase Total Creatine Kinase C-Reactive Protein Total Protein Albumin Triglycerides Arterial Blood Glucose 184 H Arterial Blood Ionized Calcium 4.3 L Urine Creatinine Urine Chloride Vancomycin Trough Coronavirus (PCR) Crossmatch 06/19/20 06/19/20 06/19/20 12:30 17:16 18:36 WBC RBC Hgb Hct MCHC RDW Plt Count Lymph % (Auto) Nelson % (Auto) Lymph # (Auto) Nelson # (Auto) Eos # (Auto) Seg Neutrophils % Seg Neuts % (Manual) Lymphocytes % (Manual) Monocytes % (Manual) Nucleated RBC % Seg Neutrophils # Seg Neutrophils # Man Lymphocytes # (Manual) Monocytes # (Manual) Eosinophils # (Manual) Basophils # (Manual) PT 16.4 H INR 1.32 H APTT D-Dimer Heparin Anti-Xa Level ABG pH 7.088 L POC ABG pCO2 78.1 H POC ABG pO2 208.3 H ABG pO2 ABG HCO3 ABG Hemoglobin ABG Oxyhemoglobin 98.3 H ABG Sodium ABG Potassium 5.0 H ABG Chloride ABG Glucose 182 H Carboxyhemoglobin 0.4 L Sodium Potassium Chloride Carbon Dioxide BUN Creatinine Glucose POC Glucose 154 H Lactic Acid Calcium Phosphorus Magnesium Ferritin Direct Bilirubin AST ALT Alkaline Phosphatase Lactate Dehydrogenase Total Creatine Kinase C-Reactive Protein Total Protein Albumin Triglycerides Arterial Blood Glucose 182 H Arterial Blood Ionized Calcium 4.3 L Urine Creatinine Urine Chloride Vancomycin Trough Coronavirus (PCR) Crossmatch 06/19/20 06/20/20 06/20/20 23:32 03:00 05:19 WBC RBC Hgb Hct MCHC RDW Plt Count Lymph % (Auto) Nelson % (Auto) Lymph # (Auto) Nelson # (Auto) Eos # (Auto) Seg Neutrophils % Seg Neuts % (Manual) Lymphocytes % (Manual) Monocytes % (Manual) Nucleated RBC % Seg Neutrophils # Seg Neutrophils # Man Lymphocytes # (Manual) Monocytes # (Manual) Eosinophils # (Manual) Basophils # (Manual) PT INR APTT D-Dimer Heparin Anti-Xa Level 0.77 H ABG pH POC ABG pCO2 POC ABG pO2 ABG pO2 ABG HCO3 ABG Hemoglobin ABG Oxyhemoglobin ABG Sodium ABG Potassium ABG Chloride ABG Glucose Carboxyhemoglobin Sodium Potassium Chloride Carbon Dioxide BUN Creatinine Glucose POC Glucose 201 H 190 H Lactic Acid Calcium Phosphorus Magnesium Ferritin Direct Bilirubin AST ALT Alkaline Phosphatase Lactate Dehydrogenase Total Creatine Kinase C-Reactive Protein Total Protein Albumin Triglycerides Arterial Blood Glucose Arterial Blood Ionized Calcium Urine Creatinine Urine Chloride Vancomycin Trough Coronavirus (PCR) Crossmatch 06/20/20 06/20/20 06/20/20 08:25 08:25 11:36 WBC RBC Hgb Hct MCHC RDW Plt Count Lymph % (Auto) Nelson % (Auto) Lymph # (Auto) Nelson # (Auto) Eos # (Auto) Seg Neutrophils % Seg Neuts % (Manual) Lymphocytes % (Manual) Monocytes % (Manual) Nucleated RBC % Seg Neutrophils # Seg Neutrophils # Man Lymphocytes # (Manual) Monocytes # (Manual) Eosinophils # (Manual) Basophils # (Manual) PT INR APTT D-Dimer Heparin Anti-Xa Level ABG pH POC ABG pCO2 POC ABG pO2 ABG pO2 ABG HCO3 ABG Hemoglobin ABG Oxyhemoglobin ABG Sodium ABG Potassium ABG Chloride ABG Glucose Carboxyhemoglobin Sodium 135 L Potassium 5.4 H Chloride 109.2 H Carbon Dioxide 19 L BUN 68 H Creatinine 2.5 H D Glucose 201 H POC Glucose 184 H Lactic Acid Calcium 5.5 L* D Phosphorus Magnesium Ferritin Direct Bilirubin AST 123 H ALT 86 H Alkaline Phosphatase Lactate Dehydrogenase Total Creatine Kinase C-Reactive Protein Total Protein 4.6 L Albumin 1.5 L Triglycerides Arterial Blood Glucose Arterial Blood Ionized Calcium Urine Creatinine Urine Chloride Vancomycin Trough 22.7 H Coronavirus (PCR) Crossmatch 06/20/20 06/20/20 06/20/20 11:40 17:28 20:00 WBC RBC Hgb Hct MCHC RDW Plt Count Lymph % (Auto) Nelson % (Auto) Lymph # (Auto) Nelson # (Auto) Eos # (Auto) Seg Neutrophils % Seg Neuts % (Manual) Lymphocytes % (Manual) Monocytes % (Manual) Nucleated RBC % Seg Neutrophils # Seg Neutrophils # Man Lymphocytes # (Manual) Monocytes # (Manual) Eosinophils # (Manual) Basophils # (Manual) PT INR APTT D-Dimer Heparin Anti-Xa Level 0.89 H ABG pH 7.099 L POC ABG pCO2 61.1 H POC ABG pO2 ABG pO2 ABG HCO3 ABG Hemoglobin ABG Oxyhemoglobin ABG Sodium ABG Potassium 5.0 H ABG Chloride 111.0 H ABG Glucose 200 H Carboxyhemoglobin 0.4 L Sodium Potassium Chloride Carbon Dioxide BUN Creatinine Glucose POC Glucose 165 H Lactic Acid Calcium Phosphorus Magnesium Ferritin Direct Bilirubin AST ALT Alkaline Phosphatase Lactate Dehydrogenase Total Creatine Kinase C-Reactive Protein Total Protein Albumin Triglycerides Arterial Blood Glucose 200 H Arterial Blood Ionized Calcium 4.2 L Urine Creatinine Urine Chloride Vancomycin Trough Coronavirus (PCR) Crossmatch 06/20/20 06/21/20 06/21/20 23:29 05:00 05:20 WBC RBC Hgb Hct MCHC RDW Plt Count Lymph % (Auto) Nelson % (Auto) Lymph # (Auto) Nelson # (Auto) Eos # (Auto) Seg Neutrophils % Seg Neuts % (Manual) Lymphocytes % (Manual) Monocytes % (Manual) Nucleated RBC % Seg Neutrophils # Seg Neutrophils # Man Lymphocytes # (Manual) Monocytes # (Manual) Eosinophils # (Manual) Basophils # (Manual) PT INR APTT D-Dimer Heparin Anti-Xa Level ABG pH POC ABG pCO2 POC ABG pO2 ABG pO2 ABG HCO3 ABG Hemoglobin ABG Oxyhemoglobin ABG Sodium ABG Potassium ABG Chloride ABG Glucose Carboxyhemoglobin Sodium Potassium Chloride 112.0 H Carbon Dioxide 20 L BUN 92 H Creatinine 3.9 H D Glucose 214 H POC Glucose 145 H 191 H Lactic Acid Calcium 6.5 L D Phosphorus Magnesium Ferritin Direct Bilirubin AST 98 H ALT 84 H Alkaline Phosphatase Lactate Dehydrogenase Total Creatine Kinase C-Reactive Protein Total Protein 4.6 L Albumin 2.1 L Triglycerides 180 H Arterial Blood Glucose Arterial Blood Ionized Calcium Urine Creatinine Urine Chloride Vancomycin Trough Coronavirus (PCR) Crossmatch 06/21/20 06/21/20 06/21/20 08:56 11:12 12:43 WBC RBC Hgb Hct MCHC RDW Plt Count Lymph % (Auto) Nelson % (Auto) Lymph # (Auto) Nelson # (Auto) Eos # (Auto) Seg Neutrophils % Seg Neuts % (Manual) Lymphocytes % (Manual) Monocytes % (Manual) Nucleated RBC % Seg Neutrophils # Seg Neutrophils # Man Lymphocytes # (Manual) Monocytes # (Manual) Eosinophils # (Manual) Basophils # (Manual) PT INR APTT D-Dimer Heparin Anti-Xa Level 0.28 L ABG pH 7.184 L POC ABG pCO2 48.3 H POC ABG pO2 172.1 H ABG pO2 ABG HCO3 ABG Hemoglobin ABG Oxyhemoglobin 98.7 H ABG Sodium ABG Potassium 4.9 H ABG Chloride 112.0 H ABG Glucose 196 H Carboxyhemoglobin 0.2 L Sodium Potassium Chloride Carbon Dioxide BUN Creatinine Glucose POC Glucose 177 H Lactic Acid Calcium Phosphorus Magnesium Ferritin Direct Bilirubin AST ALT Alkaline Phosphatase Lactate Dehydrogenase Total Creatine Kinase C-Reactive Protein Total Protein Albumin Triglycerides Arterial Blood Glucose 196 H Arterial Blood Ionized Calcium 4.1 L Urine Creatinine Urine Chloride Vancomycin Trough Coronavirus (PCR) Crossmatch 06/21/20 06/21/20 06/22/20 16:31 Unknown 00:12 WBC RBC Hgb Hct MCHC RDW Plt Count Lymph % (Auto) Nelson % (Auto) Lymph # (Auto) Nelson # (Auto) Eos # (Auto) Seg Neutrophils % Seg Neuts % (Manual) Lymphocytes % (Manual) Monocytes % (Manual) Nucleated RBC % Seg Neutrophils # Seg Neutrophils # Man Lymphocytes # (Manual) Monocytes # (Manual) Eosinophils # (Manual) Basophils # (Manual) PT INR APTT D-Dimer Heparin Anti-Xa Level 0.78 H ABG pH POC ABG pCO2 POC ABG pO2 ABG pO2 ABG HCO3 ABG Hemoglobin ABG Oxyhemoglobin ABG Sodium ABG Potassium ABG Chloride ABG Glucose Carboxyhemoglobin Sodium Potassium Chloride Carbon Dioxide BUN Creatinine Glucose POC Glucose 150 H 173 H Lactic Acid Calcium Phosphorus Magnesium Ferritin Direct Bilirubin AST ALT Alkaline Phosphatase Lactate Dehydrogenase Total Creatine Kinase C-Reactive Protein Total Protein Albumin Triglycerides Arterial Blood Glucose Arterial Blood Ionized Calcium Urine Creatinine Urine Chloride Vancomycin Trough Coronavirus (PCR) Crossmatch 06/22/20 06/22/20 06/22/20 04:00 05:04 05:30 WBC 33.9 H RBC Hgb 11.7 L Hct 35.2 L MCHC RDW 15.8 H Plt Count Lymph % (Auto) Nelson % (Auto) Lymph # (Auto) Nelson # (Auto) Eos # (Auto) Seg Neutrophils % Seg Neuts % (Manual) 93.0 H Lymphocytes % (Manual) 5.0 L Monocytes % (Manual) Nucleated RBC % Seg Neutrophils # Seg Neutrophils # Man 31.5 H Lymphocytes # (Manual) Monocytes # (Manual) Eosinophils # (Manual) Basophils # (Manual) PT INR APTT D-Dimer Heparin Anti-Xa Level ABG pH 7.169 L POC ABG pCO2 POC ABG pO2 ABG pO2 ABG HCO3 ABG Hemoglobin ABG Oxyhemoglobin ABG Sodium ABG Potassium 5.1 H ABG Chloride 112.0 H ABG Glucose 186 H Carboxyhemoglobin 0.3 L Sodium Potassium Chloride Carbon Dioxide BUN Creatinine Glucose POC Glucose 161 H Lactic Acid Calcium Phosphorus Magnesium Ferritin Direct Bilirubin AST ALT Alkaline Phosphatase Lactate Dehydrogenase Total Creatine Kinase C-Reactive Protein Total Protein Albumin Triglycerides Arterial Blood Glucose 186 H Arterial Blood Ionized Calcium 4.1 L Urine Creatinine Urine Chloride Vancomycin Trough Coronavirus (PCR) Crossmatch 06/22/20 06/22/20 06/22/20 05:30 11:39 13:27 WBC RBC Hgb Hct MCHC RDW Plt Count Lymph % (Auto) Nelson % (Auto) Lymph # (Auto) Nelson # (Auto) Eos # (Auto) Seg Neutrophils % Seg Neuts % (Manual) Lymphocytes % (Manual) Monocytes % (Manual) Nucleated RBC % Seg Neutrophils # Seg Neutrophils # Man Lymphocytes # (Manual) Monocytes # (Manual) Eosinophils # (Manual) Basophils # (Manual) PT INR APTT D-Dimer Heparin Anti-Xa Level ABG pH POC ABG pCO2 POC ABG pO2 ABG pO2 ABG HCO3 ABG Hemoglobin ABG Oxyhemoglobin ABG Sodium ABG Potassium ABG Chloride ABG Glucose Carboxyhemoglobin Sodium Potassium 5.7 H Chloride 111.3 H Carbon Dioxide 18 L BUN 112 H Creatinine 5.0 H Glucose 173 H POC Glucose 172 H 176 H Lactic Acid Calcium 6.7 L Phosphorus Magnesium Ferritin Direct Bilirubin AST ALT Alkaline Phosphatase Lactate Dehydrogenase Total Creatine Kinase C-Reactive Protein Total Protein Albumin Triglycerides Arterial Blood Glucose Arterial Blood Ionized Calcium Urine Creatinine Urine Chloride Vancomycin Trough Coronavirus (PCR) Crossmatch 06/22/20 06/22/20 06/22/20 14:37 17:00 17:40 WBC RBC Hgb Hct MCHC RDW Plt Count Lymph % (Auto) Nelson % (Auto) Lymph # (Auto) Nelson # (Auto) Eos # (Auto) Seg Neutrophils % Seg Neuts % (Manual) Lymphocytes % (Manual) Monocytes % (Manual) Nucleated RBC % Seg Neutrophils # Seg Neutrophils # Man Lymphocytes # (Manual) Monocytes # (Manual) Eosinophils # (Manual) Basophils # (Manual) PT INR APTT D-Dimer Heparin Anti-Xa Level 1.32 H ABG pH POC ABG pCO2 POC ABG pO2 ABG pO2 ABG HCO3 ABG Hemoglobin ABG Oxyhemoglobin ABG Sodium ABG Potassium ABG Chloride ABG Glucose Carboxyhemoglobin Sodium Potassium Chloride Carbon Dioxide BUN Creatinine Glucose POC Glucose 171 H Lactic Acid Calcium Phosphorus Magnesium Ferritin Direct Bilirubin AST ALT Alkaline Phosphatase Lactate Dehydrogenase Total Creatine Kinase C-Reactive Protein 5.30 H Total Protein Albumin Triglycerides Arterial Blood Glucose Arterial Blood Ionized Calcium Urine Creatinine Urine Chloride Vancomycin Trough Coronavirus (PCR) Crossmatch 06/22/20 06/23/20 06/23/20 23:36 02:13 02:41 WBC RBC Hgb Hct MCHC RDW Plt Count Lymph % (Auto) Nelson % (Auto) Lymph # (Auto) Nelson # (Auto) Eos # (Auto) Seg Neutrophils % Seg Neuts % (Manual) Lymphocytes % (Manual) Monocytes % (Manual) Nucleated RBC % Seg Neutrophils # Seg Neutrophils # Man Lymphocytes # (Manual) Monocytes # (Manual) Eosinophils # (Manual) Basophils # (Manual) PT INR APTT D-Dimer Heparin Anti-Xa Level 0.21 L ABG pH 7.318 L POC ABG pCO2 POC ABG pO2 157.5 H ABG pO2 ABG HCO3 ABG Hemoglobin ABG Oxyhemoglobin ABG Sodium 135.6 L ABG Potassium 4.6 H ABG Chloride 110.0 H ABG Glucose 169 H Carboxyhemoglobin Sodium Potassium Chloride Carbon Dioxide BUN Creatinine Glucose POC Glucose 155 H Lactic Acid Calcium Phosphorus Magnesium Ferritin Direct Bilirubin AST ALT Alkaline Phosphatase Lactate Dehydrogenase Total Creatine Kinase C-Reactive Protein Total Protein Albumin Triglycerides Arterial Blood Glucose 169 H Arterial Blood Ionized Calcium Urine Creatinine Urine Chloride Vancomycin Trough Coronavirus (PCR) Crossmatch 06/23/20 06/23/20 06/23/20 04:00 04:00 05:24 WBC 27.4 H RBC Hgb 11.3 L Hct 33.8 L MCHC RDW Plt Count Lymph % (Auto) Nelson % (Auto) Lymph # (Auto) Nelson # (Auto) Eos # (Auto) Seg Neutrophils % Seg Neuts % (Manual) 93.0 H Lymphocytes % (Manual) 1.0 L Monocytes % (Manual) Nucleated RBC % 1.0 H Seg Neutrophils # Seg Neutrophils # Man 25.5 H Lymphocytes # (Manual) 0.3 L Monocytes # (Manual) 1.1 H Eosinophils # (Manual) Basophils # (Manual) PT INR APTT D-Dimer Heparin Anti-Xa Level ABG pH POC ABG pCO2 POC ABG pO2 ABG pO2 ABG HCO3 ABG Hemoglobin ABG Oxyhemoglobin ABG Sodium ABG Potassium ABG Chloride ABG Glucose Carboxyhemoglobin Sodium Potassium Chloride 107.6 H Carbon Dioxide 20 L BUN 100 H Creatinine 4.7 H Glucose 168 H POC Glucose 151 H Lactic Acid Calcium Phosphorus Magnesium Ferritin Direct Bilirubin AST ALT Alkaline Phosphatase Lactate Dehydrogenase Total Creatine Kinase C-Reactive Protein Total Protein Albumin Triglycerides Arterial Blood Glucose Arterial Blood Ionized Calcium Urine Creatinine Urine Chloride Vancomycin Trough Coronavirus (PCR) Crossmatch 06/23/20 06/23/20 06/23/20 11:30 17:18 23:50 WBC RBC Hgb Hct MCHC RDW Plt Count Lymph % (Auto) Nelson % (Auto) Lymph # (Auto) Nelson # (Auto) Eos # (Auto) Seg Neutrophils % Seg Neuts % (Manual) Lymphocytes % (Manual) Monocytes % (Manual) Nucleated RBC % Seg Neutrophils # Seg Neutrophils # Man Lymphocytes # (Manual) Monocytes # (Manual) Eosinophils # (Manual) Basophils # (Manual) PT INR APTT D-Dimer Heparin Anti-Xa Level ABG pH POC ABG pCO2 POC ABG pO2 ABG pO2 ABG HCO3 ABG Hemoglobin ABG Oxyhemoglobin ABG Sodium ABG Potassium ABG Chloride ABG Glucose Carboxyhemoglobin Sodium Potassium Chloride Carbon Dioxide BUN Creatinine Glucose POC Glucose 157 H 156 H 162 H Lactic Acid Calcium Phosphorus Magnesium Ferritin Direct Bilirubin AST ALT Alkaline Phosphatase Lactate Dehydrogenase Total Creatine Kinase C-Reactive Protein Total Protein Albumin Triglycerides Arterial Blood Glucose Arterial Blood Ionized Calcium Urine Creatinine Urine Chloride Vancomycin Trough Coronavirus (PCR) Crossmatch 06/24/20 06/24/20 06/24/20 04:41 05:57 06:30 WBC 34.3 H RBC Hgb 10.9 L Hct 32.6 L MCHC RDW Plt Count Lymph % (Auto) 2.0 L Nelson % (Auto) Lymph # (Auto) 0.7 L Nelson # (Auto) 1.2 H Eos # (Auto) Seg Neutrophils % Seg Neuts % (Manual) 96.0 H Lymphocytes % (Manual) 3.0 L Monocytes % (Manual) Nucleated RBC % Seg Neutrophils # 32.3 H Seg Neutrophils # Man 32.9 H Lymphocytes # (Manual) 1.0 L Monocytes # (Manual) Eosinophils # (Manual) Basophils # (Manual) PT INR APTT D-Dimer Heparin Anti-Xa Level ABG pH POC ABG pCO2 POC ABG pO2 71.1 L ABG pO2 ABG HCO3 ABG Hemoglobin ABG Oxyhemoglobin 92.4 L ABG Sodium 115.6 L ABG Potassium ABG Chloride ABG Glucose 159 H Carboxyhemoglobin Sodium Potassium Chloride Carbon Dioxide BUN Creatinine Glucose POC Glucose 143 H Lactic Acid Calcium Phosphorus Magnesium Ferritin Direct Bilirubin AST ALT Alkaline Phosphatase Lactate Dehydrogenase Total Creatine Kinase C-Reactive Protein Total Protein Albumin Triglycerides Arterial Blood Glucose 159 H Arterial Blood Ionized Calcium 4.2 L Urine Creatinine Urine Chloride Vancomycin Trough Coronavirus (PCR) Crossmatch 06/24/20 06/24/20 06/24/20 07:03 09:37 11:56 WBC RBC Hgb Hct MCHC RDW Plt Count Lymph % (Auto) Nelson % (Auto) Lymph # (Auto) Nelson # (Auto) Eos # (Auto) Seg Neutrophils % Seg Neuts % (Manual) Lymphocytes % (Manual) Monocytes % (Manual) Nucleated RBC % Seg Neutrophils # Seg Neutrophils # Man Lymphocytes # (Manual) Monocytes # (Manual) Eosinophils # (Manual) Basophils # (Manual) PT INR APTT D-Dimer Heparin Anti-Xa Level 0.26 L ABG pH POC ABG pCO2 POC ABG pO2 ABG pO2 ABG HCO3 ABG Hemoglobin ABG Oxyhemoglobin ABG Sodium ABG Potassium ABG Chloride ABG Glucose Carboxyhemoglobin Sodium Potassium 5.1 H Chloride Carbon Dioxide BUN 103 H Creatinine 5.0 H Glucose 163 H POC Glucose 149 H Lactic Acid Calcium 7.6 L Phosphorus Magnesium Ferritin Direct Bilirubin AST ALT Alkaline Phosphatase Lactate Dehydrogenase Total Creatine Kinase C-Reactive Protein Total Protein Albumin Triglycerides Arterial Blood Glucose Arterial Blood Ionized Calcium Urine Creatinine Urine Chloride Vancomycin Trough Coronavirus (PCR) Crossmatch 06/24/20 06/25/20 06/25/20 18:09 01:05 03:00 WBC RBC Hgb 10.6 L Hct 32.1 L MCHC RDW Plt Count Lymph % (Auto) Nelson % (Auto) Lymph # (Auto) Nelson # (Auto) Eos # (Auto) Seg Neutrophils % Seg Neuts % (Manual) Lymphocytes % (Manual) Monocytes % (Manual) Nucleated RBC % Seg Neutrophils # Seg Neutrophils # Man Lymphocytes # (Manual) Monocytes # (Manual) Eosinophils # (Manual) Basophils # (Manual) PT INR APTT D-Dimer Heparin Anti-Xa Level ABG pH POC ABG pCO2 POC ABG pO2 ABG pO2 ABG HCO3 ABG Hemoglobin ABG Oxyhemoglobin ABG Sodium ABG Potassium ABG Chloride ABG Glucose Carboxyhemoglobin Sodium Potassium Chloride Carbon Dioxide BUN Creatinine Glucose POC Glucose 141 H 137 H Lactic Acid Calcium Phosphorus Magnesium Ferritin Direct Bilirubin AST ALT Alkaline Phosphatase Lactate Dehydrogenase Total Creatine Kinase C-Reactive Protein Total Protein Albumin Triglycerides Arterial Blood Glucose Arterial Blood Ionized Calcium Urine Creatinine Urine Chloride Vancomycin Trough Coronavirus (PCR) Crossmatch 06/25/20 06/25/20 06/25/20 03:48 05:17 12:08 WBC RBC Hgb Hct MCHC RDW Plt Count Lymph % (Auto) Nelson % (Auto) Lymph # (Auto) Nelson # (Auto) Eos # (Auto) Seg Neutrophils % Seg Neuts % (Manual) Lymphocytes % (Manual) Monocytes % (Manual) Nucleated RBC % Seg Neutrophils # Seg Neutrophils # Man Lymphocytes # (Manual) Monocytes # (Manual) Eosinophils # (Manual) Basophils # (Manual) PT INR APTT D-Dimer Heparin Anti-Xa Level ABG pH POC ABG pCO2 29.4 L POC ABG pO2 67.1 L ABG pO2 ABG HCO3 ABG Hemoglobin 11.5 L ABG Oxyhemoglobin ABG Sodium 124.1 L ABG Potassium 4.6 H ABG Chloride ABG Glucose 159 H Carboxyhemoglobin Sodium Potassium Chloride Carbon Dioxide BUN Creatinine Glucose POC Glucose 149 H 150 H Lactic Acid Calcium Phosphorus Magnesium Ferritin Direct Bilirubin AST ALT Alkaline Phosphatase Lactate Dehydrogenase Total Creatine Kinase C-Reactive Protein Total Protein Albumin Triglycerides Arterial Blood Glucose 159 H Arterial Blood Ionized Calcium 4.2 L Urine Creatinine Urine Chloride Vancomycin Trough Coronavirus (PCR) Crossmatch 06/25/20 06/25/20 06/25/20 16:27 16:35 17:27 WBC RBC Hgb Hct MCHC RDW Plt Count Lymph % (Auto) Nelson % (Auto) Lymph # (Auto) Nelson # (Auto) Eos # (Auto) Seg Neutrophils % Seg Neuts % (Manual) Lymphocytes % (Manual) Monocytes % (Manual) Nucleated RBC % Seg Neutrophils # Seg Neutrophils # Man Lymphocytes # (Manual) Monocytes # (Manual) Eosinophils # (Manual) Basophils # (Manual) PT INR APTT D-Dimer Heparin Anti-Xa Level < 0.10 L ABG pH POC ABG pCO2 POC ABG pO2 ABG pO2 ABG HCO3 ABG Hemoglobin ABG Oxyhemoglobin ABG Sodium ABG Potassium ABG Chloride ABG Glucose Carboxyhemoglobin Sodium Potassium Chloride Carbon Dioxide BUN Creatinine Glucose POC Glucose 143 H 156 H Lactic Acid Calcium Phosphorus Magnesium Ferritin Direct Bilirubin AST ALT Alkaline Phosphatase Lactate Dehydrogenase Total Creatine Kinase C-Reactive Protein Total Protein Albumin Triglycerides Arterial Blood Glucose Arterial Blood Ionized Calcium Urine Creatinine Urine Chloride Vancomycin Trough Coronavirus (PCR) Crossmatch 06/25/20 06/25/20 06/25/20 20:00 20:55 23:10 WBC 32.7 H RBC 3.06 L Hgb 9.0 L 9.5 L Hct 26.7 L 28.6 L MCHC RDW Plt Count Lymph % (Auto) Nelson % (Auto) Lymph # (Auto) Nelson # (Auto) Eos # (Auto) Seg Neutrophils % Seg Neuts % (Manual) Lymphocytes % (Manual) 2.0 L Monocytes % (Manual) Nucleated RBC % Seg Neutrophils # Seg Neutrophils # Man 30.7 H Lymphocytes # (Manual) 0.7 L Monocytes # (Manual) 1.3 H Eosinophils # (Manual) Basophils # (Manual) PT 17.7 H INR 1.47 H APTT 65.8 H* D-Dimer Heparin Anti-Xa Level ABG pH POC ABG pCO2 POC ABG pO2 ABG pO2 ABG HCO3 ABG Hemoglobin ABG Oxyhemoglobin ABG Sodium ABG Potassium ABG Chloride ABG Glucose Carboxyhemoglobin Sodium Potassium Chloride Carbon Dioxide BUN Creatinine Glucose POC Glucose Lactic Acid Calcium Phosphorus Magnesium Ferritin Direct Bilirubin AST ALT Alkaline Phosphatase Lactate Dehydrogenase Total Creatine Kinase C-Reactive Protein Total Protein Albumin Triglycerides Arterial Blood Glucose Arterial Blood Ionized Calcium Urine Creatinine Urine Chloride Vancomycin Trough Coronavirus (PCR) Crossmatch 06/25/20 06/26/20 06/26/20 23:14 01:30 03:25 WBC RBC Hgb Hct MCHC RDW Plt Count Lymph % (Auto) Nelson % (Auto) Lymph # (Auto) Nelson # (Auto) Eos # (Auto) Seg Neutrophils % Seg Neuts % (Manual) Lymphocytes % (Manual) Monocytes % (Manual) Nucleated RBC % Seg Neutrophils # Seg Neutrophils # Man Lymphocytes # (Manual) Monocytes # (Manual) Eosinophils # (Manual) Basophils # (Manual) PT INR APTT D-Dimer Heparin Anti-Xa Level < 0.10 L ABG pH POC ABG pCO2 POC ABG pO2 ABG pO2 ABG HCO3 ABG Hemoglobin 11.8 L ABG Oxyhemoglobin ABG Sodium 127.1 L ABG Potassium 5.4 H ABG Chloride ABG Glucose 155 H Carboxyhemoglobin 0.3 L Sodium Potassium Chloride Carbon Dioxide BUN Creatinine Glucose POC Glucose 148 H Lactic Acid Calcium Phosphorus Magnesium Ferritin Direct Bilirubin AST ALT Alkaline Phosphatase Lactate Dehydrogenase Total Creatine Kinase C-Reactive Protein Total Protein Albumin Triglycerides Arterial Blood Glucose 155 H Arterial Blood Ionized Calcium 4.2 L Urine Creatinine Urine Chloride Vancomycin Trough Coronavirus (PCR) Crossmatch 06/26/20 06/26/20 06/26/20 03:59 05:14 05:47 WBC 36.5 H RBC 3.26 L Hgb 9.7 L Hct 28.2 L MCHC RDW Plt Count Lymph % (Auto) Nelson % (Auto) Lymph # (Auto) Nelson # (Auto) Eos # (Auto) Seg Neutrophils % Seg Neuts % (Manual) 92.0 H Lymphocytes % (Manual) 4.0 L Monocytes % (Manual) Nucleated RBC % Seg Neutrophils # Seg Neutrophils # Man 33.6 H Lymphocytes # (Manual) Monocytes # (Manual) Eosinophils # (Manual) Basophils # (Manual) PT INR APTT D-Dimer Heparin Anti-Xa Level ABG pH POC ABG pCO2 POC ABG pO2 ABG pO2 ABG HCO3 ABG Hemoglobin ABG Oxyhemoglobin ABG Sodium ABG Potassium ABG Chloride ABG Glucose Carboxyhemoglobin Sodium Potassium 5.9 H Chloride Carbon Dioxide 20 L BUN 144 H Creatinine 6.4 H Glucose 149 H POC Glucose 128 H Lactic Acid Calcium 7.6 L Phosphorus Magnesium Ferritin Direct Bilirubin AST ALT Alkaline Phosphatase Lactate Dehydrogenase Total Creatine Kinase C-Reactive Protein Total Protein Albumin Triglycerides Arterial Blood Glucose Arterial Blood Ionized Calcium Urine Creatinine Urine Chloride Vancomycin Trough Coronavirus (PCR) Crossmatch 06/26/20 06/26/20 06/26/20 05:47 12:47 17:42 WBC RBC Hgb Hct MCHC RDW Plt Count Lymph % (Auto) Nelson % (Auto) Lymph # (Auto) Nelson # (Auto) Eos # (Auto) Seg Neutrophils % Seg Neuts % (Manual) Lymphocytes % (Manual) Monocytes % (Manual) Nucleated RBC % Seg Neutrophils # Seg Neutrophils # Man Lymphocytes # (Manual) Monocytes # (Manual) Eosinophils # (Manual) Basophils # (Manual) PT 17.4 H INR 1.44 H APTT D-Dimer Heparin Anti-Xa Level ABG pH POC ABG pCO2 POC ABG pO2 ABG pO2 ABG HCO3 ABG Hemoglobin ABG Oxyhemoglobin ABG Sodium ABG Potassium ABG Chloride ABG Glucose Carboxyhemoglobin Sodium Potassium Chloride Carbon Dioxide BUN Creatinine Glucose POC Glucose 124 H 127 H Lactic Acid Calcium Phosphorus Magnesium Ferritin Direct Bilirubin AST ALT Alkaline Phosphatase Lactate Dehydrogenase Total Creatine Kinase C-Reactive Protein Total Protein Albumin Triglycerides Arterial Blood Glucose Arterial Blood Ionized Calcium Urine Creatinine Urine Chloride Vancomycin Trough Coronavirus (PCR) Crossmatch 06/26/20 06/27/20 06/27/20 23:30 03:32 04:00 WBC RBC Hgb 8.7 L Hct 26.4 L MCHC RDW Plt Count Lymph % (Auto) Nelson % (Auto) Lymph # (Auto) Nelson # (Auto) Eos # (Auto) Seg Neutrophils % Seg Neuts % (Manual) Lymphocytes % (Manual) Monocytes % (Manual) Nucleated RBC % Seg Neutrophils # Seg Neutrophils # Man Lymphocytes # (Manual) Monocytes # (Manual) Eosinophils # (Manual) Basophils # (Manual) PT INR APTT D-Dimer Heparin Anti-Xa Level ABG pH 7.298 L POC ABG pCO2 POC ABG pO2 ABG pO2 ABG HCO3 ABG Hemoglobin 9.6 L ABG Oxyhemoglobin ABG Sodium 124.4 L ABG Potassium 6.6 H ABG Chloride ABG Glucose 136 H Carboxyhemoglobin Sodium Potassium Chloride Carbon Dioxide BUN Creatinine Glucose POC Glucose 123 H Lactic Acid Calcium Phosphorus Magnesium Ferritin Direct Bilirubin AST ALT Alkaline Phosphatase Lactate Dehydrogenase Total Creatine Kinase C-Reactive Protein Total Protein Albumin Triglycerides Arterial Blood Glucose 136 H Arterial Blood Ionized Calcium 4.1 L Urine Creatinine Urine Chloride Vancomycin Trough Coronavirus (PCR) Crossmatch 06/27/20 06/27/20 06/27/20 05:26 10:14 11:58 WBC RBC Hgb Hct MCHC RDW Plt Count Lymph % (Auto) Nelson % (Auto) Lymph # (Auto) Nelson # (Auto) Eos # (Auto) Seg Neutrophils % Seg Neuts % (Manual) Lymphocytes % (Manual) Monocytes % (Manual) Nucleated RBC % Seg Neutrophils # Seg Neutrophils # Man Lymphocytes # (Manual) Monocytes # (Manual) Eosinophils # (Manual) Basophils # (Manual) PT INR APTT D-Dimer Heparin Anti-Xa Level ABG pH POC ABG pCO2 POC ABG pO2 ABG pO2 ABG HCO3 ABG Hemoglobin ABG Oxyhemoglobin ABG Sodium ABG Potassium ABG Chloride ABG Glucose Carboxyhemoglobin Sodium 136 L Potassium 7.0 H* Chloride 97.8 L Carbon Dioxide BUN 172 H Creatinine 7.4 H Glucose 129 H POC Glucose 124 H 115 H Lactic Acid Calcium 7.6 L Phosphorus Magnesium Ferritin Direct Bilirubin AST ALT Alkaline Phosphatase Lactate Dehydrogenase Total Creatine Kinase C-Reactive Protein Total Protein Albumin Triglycerides Arterial Blood Glucose Arterial Blood Ionized Calcium Urine Creatinine Urine Chloride Vancomycin Trough Coronavirus (PCR) Crossmatch 06/27/20 06/27/20 06/27/20 17:32 18:30 23:24 WBC RBC Hgb Hct MCHC RDW Plt Count Lymph % (Auto) Nelson % (Auto) Lymph # (Auto) Nelson # (Auto) Eos # (Auto) Seg Neutrophils % Seg Neuts % (Manual) Lymphocytes % (Manual) Monocytes % (Manual) Nucleated RBC % Seg Neutrophils # Seg Neutrophils # Man Lymphocytes # (Manual) Monocytes # (Manual) Eosinophils # (Manual) Basophils # (Manual) PT INR APTT D-Dimer Heparin Anti-Xa Level ABG pH POC ABG pCO2 POC ABG pO2 ABG pO2 ABG HCO3 ABG Hemoglobin ABG Oxyhemoglobin ABG Sodium ABG Potassium ABG Chloride ABG Glucose Carboxyhemoglobin Sodium Potassium 7.3 H* Chloride Carbon Dioxide BUN Creatinine Glucose POC Glucose 122 H 116 H Lactic Acid Calcium Phosphorus Magnesium Ferritin Direct Bilirubin AST ALT Alkaline Phosphatase Lactate Dehydrogenase Total Creatine Kinase C-Reactive Protein Total Protein Albumin Triglycerides Arterial Blood Glucose Arterial Blood Ionized Calcium Urine Creatinine Urine Chloride Vancomycin Trough Coronavirus (PCR) Crossmatch 06/28/20 06/28/20 06/28/20 00:00 02:16 05:37 WBC RBC Hgb Hct MCHC RDW Plt Count Lymph % (Auto) Nelson % (Auto) Lymph # (Auto) Nelson # (Auto) Eos # (Auto) Seg Neutrophils % Seg Neuts % (Manual) Lymphocytes % (Manual) Monocytes % (Manual) Nucleated RBC % Seg Neutrophils # Seg Neutrophils # Man Lymphocytes # (Manual) Monocytes # (Manual) Eosinophils # (Manual) Basophils # (Manual) PT INR APTT D-Dimer Heparin Anti-Xa Level ABG pH POC ABG pCO2 POC ABG pO2 79.0 L ABG pO2 ABG HCO3 ABG Hemoglobin 11.7 L ABG Oxyhemoglobin ABG Sodium 128.1 L ABG Potassium 6.6 H ABG Chloride ABG Glucose 124 H Carboxyhemoglobin Sodium Potassium 7.3 H* Chloride Carbon Dioxide BUN Creatinine Glucose POC Glucose 115 H Lactic Acid Calcium Phosphorus Magnesium Ferritin Direct Bilirubin AST ALT Alkaline Phosphatase Lactate Dehydrogenase Total Creatine Kinase C-Reactive Protein Total Protein Albumin Triglycerides Arterial Blood Glucose 124 H Arterial Blood Ionized Calcium 4.2 L Urine Creatinine Urine Chloride Vancomycin Trough Coronavirus (PCR) Crossmatch 06/28/20 06/28/20 06/28/20 10:03 10:03 11:51 WBC 33.6 H RBC 3.03 L Hgb 8.9 L Hct 27.0 L MCHC RDW Plt Count Lymph % (Auto) Nelson % (Auto) Lymph # (Auto) Nelson # (Auto) Eos # (Auto) Seg Neutrophils % Seg Neuts % (Manual) Lymphocytes % (Manual) Monocytes % (Manual) Nucleated RBC % Seg Neutrophils # Seg Neutrophils # Man Lymphocytes # (Manual) Monocytes # (Manual) Eosinophils # (Manual) Basophils # (Manual) PT INR APTT D-Dimer Heparin Anti-Xa Level ABG pH POC ABG pCO2 POC ABG pO2 ABG pO2 ABG HCO3 ABG Hemoglobin ABG Oxyhemoglobin ABG Sodium ABG Potassium ABG Chloride ABG Glucose Carboxyhemoglobin Sodium 136 L Potassium 6.5 H* Chloride Carbon Dioxide 20 L BUN 129 H Creatinine 5.8 H Glucose 113 H POC Glucose 107 H Lactic Acid Calcium 7.6 L Phosphorus Magnesium Ferritin Direct Bilirubin AST ALT Alkaline Phosphatase Lactate Dehydrogenase Total Creatine Kinase C-Reactive Protein Total Protein Albumin Triglycerides Arterial Blood Glucose Arterial Blood Ionized Calcium Urine Creatinine Urine Chloride Vancomycin Trough Coronavirus (PCR) Crossmatch 06/28/20 06/28/20 06/29/20 17:45 Unknown 03:15 WBC RBC Hgb Hct MCHC RDW Plt Count Lymph % (Auto) Nelson % (Auto) Lymph # (Auto) Nelson # (Auto) Eos # (Auto) Seg Neutrophils % Seg Neuts % (Manual) Lymphocytes % (Manual) Monocytes % (Manual) Nucleated RBC % Seg Neutrophils # Seg Neutrophils # Man Lymphocytes # (Manual) Monocytes # (Manual) Eosinophils # (Manual) Basophils # (Manual) PT INR APTT D-Dimer Heparin Anti-Xa Level ABG pH POC ABG pCO2 POC ABG pO2 ABG pO2 ABG HCO3 ABG Hemoglobin 7.8 L ABG Oxyhemoglobin ABG Sodium 127.4 L ABG Potassium 5.5 H ABG Chloride 97.0 L ABG Glucose 96 H Carboxyhemoglobin Sodium Potassium 5.4 H Chloride Carbon Dioxide BUN Creatinine Glucose POC Glucose 117 H Lactic Acid Calcium Phosphorus Magnesium Ferritin Direct Bilirubin AST ALT Alkaline Phosphatase Lactate Dehydrogenase Total Creatine Kinase C-Reactive Protein Total Protein Albumin Triglycerides Arterial Blood Glucose 96 H Arterial Blood Ionized Calcium 4.0 L Urine Creatinine Urine Chloride Vancomycin Trough Coronavirus (PCR) Crossmatch 06/29/20 06/29/20 06/29/20 03:45 Unknown Unknown WBC RBC Hgb Hct MCHC RDW Plt Count Lymph % (Auto) Nelson % (Auto) Lymph # (Auto) Nelson # (Auto) Eos # (Auto) Seg Neutrophils % Seg Neuts % (Manual) Lymphocytes % (Manual) Monocytes % (Manual) Nucleated RBC % Seg Neutrophils # Seg Neutrophils # Man Lymphocytes # (Manual) Monocytes # (Manual) Eosinophils # (Manual) Basophils # (Manual) PT INR APTT D-Dimer Heparin Anti-Xa Level ABG pH POC ABG pCO2 POC ABG pO2 ABG pO2 ABG HCO3 ABG Hemoglobin ABG Oxyhemoglobin ABG Sodium ABG Potassium ABG Chloride ABG Glucose Carboxyhemoglobin Sodium 135 L Potassium 6.0 H 6.1 H* Chloride 94.8 L Carbon Dioxide BUN 109 H 114 H Creatinine 5.5 H Glucose POC Glucose Lactic Acid Calcium 7.4 L Phosphorus Magnesium Ferritin Direct Bilirubin AST 47 H ALT Alkaline Phosphatase Lactate Dehydrogenase Total Creatine Kinase C-Reactive Protein Total Protein 4.9 L Albumin 2.2 L Triglycerides Arterial Blood Glucose Arterial Blood Ionized Calcium Urine Creatinine Urine Chloride Vancomycin Trough Coronavirus (PCR) Crossmatch 06/29/20 06/29/20 06/30/20 Unknown Unknown 03:32 WBC 20.7 H RBC 2.57 L Hgb 7.6 L Hct 23.0 L MCHC RDW Plt Count Lymph % (Auto) Nelson % (Auto) Lymph # (Auto) Nelson # (Auto) Eos # (Auto) Seg Neutrophils % Seg Neuts % (Manual) Lymphocytes % (Manual) Monocytes % (Manual) Nucleated RBC % Seg Neutrophils # Seg Neutrophils # Man Lymphocytes # (Manual) Monocytes # (Manual) Eosinophils # (Manual) Basophils # (Manual) PT INR APTT D-Dimer Heparin Anti-Xa Level ABG pH POC ABG pCO2 POC ABG pO2 ABG pO2 ABG HCO3 ABG Hemoglobin 11.4 L ABG Oxyhemoglobin ABG Sodium 130.1 L ABG Potassium 5.0 H ABG Chloride ABG Glucose Carboxyhemoglobin Sodium Potassium Chloride Carbon Dioxide BUN Creatinine Glucose POC Glucose Lactic Acid Calcium Phosphorus Magnesium Ferritin Direct Bilirubin AST ALT Alkaline Phosphatase Lactate Dehydrogenase Total Creatine Kinase 618 H C-Reactive Protein Total Protein Albumin Triglycerides Arterial Blood Glucose Arterial Blood Ionized Calcium 3.9 L Urine Creatinine Urine Chloride Vancomycin Trough Coronavirus (PCR) Crossmatch 06/30/20 06/30/20 06/30/20 03:50 03:50 11:39 WBC 13.1 H RBC Hgb Hct MCHC RDW Plt Count Lymph % (Auto) Nelson % (Auto) Lymph # (Auto) Nelson # (Auto) Eos # (Auto) Seg Neutrophils % Seg Neuts % (Manual) 95.0 H Lymphocytes % (Manual) 3.0 L Monocytes % (Manual) Nucleated RBC % Seg Neutrophils # Seg Neutrophils # Man 12.4 H Lymphocytes # (Manual) 0.4 L Monocytes # (Manual) Eosinophils # (Manual) Basophils # (Manual) PT INR APTT D-Dimer Heparin Anti-Xa Level ABG pH POC ABG pCO2 POC ABG pO2 ABG pO2 ABG HCO3 ABG Hemoglobin ABG Oxyhemoglobin ABG Sodium ABG Potassium ABG Chloride ABG Glucose Carboxyhemoglobin Sodium 135 L Potassium 5.4 H D Chloride 93.6 L Carbon Dioxide BUN 85 H Creatinine 4.6 H Glucose POC Glucose 111 H Lactic Acid Calcium 7.1 L Phosphorus 9.40 H Magnesium Ferritin Direct Bilirubin AST ALT Alkaline Phosphatase Lactate Dehydrogenase Total Creatine Kinase C-Reactive Protein Total Protein Albumin Triglycerides Arterial Blood Glucose Arterial Blood Ionized Calcium Urine Creatinine Urine Chloride Vancomycin Trough Coronavirus (PCR) Crossmatch 06/30/20 06/30/20 07/01/20 13:12 Unknown 03:19 WBC RBC Hgb 7.8 L D Hct 23.2 L D MCHC RDW Plt Count Lymph % (Auto) Nelson % (Auto) Lymph # (Auto) Nelson # (Auto) Eos # (Auto) Seg Neutrophils % Seg Neuts % (Manual) Lymphocytes % (Manual) Monocytes % (Manual) Nucleated RBC % Seg Neutrophils # Seg Neutrophils # Man Lymphocytes # (Manual) Monocytes # (Manual) Eosinophils # (Manual) Basophils # (Manual) PT INR APTT D-Dimer Heparin Anti-Xa Level ABG pH 7.461 H POC ABG pCO2 POC ABG pO2 77.2 L ABG pO2 ABG HCO3 ABG Hemoglobin 6.9 L ABG Oxyhemoglobin ABG Sodium 128.5 L ABG Potassium ABG Chloride 97.0 L ABG Glucose Carboxyhemoglobin Sodium Potassium Chloride Carbon Dioxide BUN Creatinine Glucose POC Glucose Lactic Acid Calcium Phosphorus Magnesium Ferritin Direct Bilirubin AST ALT Alkaline Phosphatase Lactate Dehydrogenase Total Creatine Kinase C-Reactive Protein Total Protein Albumin Triglycerides Arterial Blood Glucose Arterial Blood Ionized Calcium 3.7 L Urine Creatinine Urine Chloride Vancomycin Trough Coronavirus (PCR) Positive A Crossmatch 07/01/20 07/01/20 07/01/20 06:00 06:00 11:04 WBC 16.7 H RBC 2.16 L Hgb 6.4 L Hct 19.2 L* MCHC RDW Plt Count Lymph % (Auto) Nelson % (Auto) Lymph # (Auto) Nelson # (Auto) Eos # (Auto) Seg Neutrophils % Seg Neuts % (Manual) Lymphocytes % (Manual) Monocytes % (Manual) Nucleated RBC % Seg Neutrophils # Seg Neutrophils # Man Lymphocytes # (Manual) Monocytes # (Manual) Eosinophils # (Manual) Basophils # (Manual) PT INR APTT D-Dimer Heparin Anti-Xa Level ABG pH POC ABG pCO2 POC ABG pO2 ABG pO2 ABG HCO3 ABG Hemoglobin ABG Oxyhemoglobin ABG Sodium ABG Potassium ABG Chloride ABG Glucose Carboxyhemoglobin Sodium 136 L Potassium Chloride 95.8 L Carbon Dioxide BUN 72 H Creatinine 4.3 H Glucose POC Glucose Lactic Acid Calcium 6.7 L Phosphorus Magnesium Ferritin Direct Bilirubin AST ALT Alkaline Phosphatase Lactate Dehydrogenase Total Creatine Kinase C-Reactive Protein Total Protein Albumin Triglycerides 250 H Arterial Blood Glucose Arterial Blood Ionized Calcium Urine Creatinine Urine Chloride Vancomycin Trough Coronavirus (PCR) Crossmatch See Detail 07/02/20 07/02/20 07/02/20 04:44 06:00 11:33 WBC 14.6 H RBC 2.47 L Hgb 7.4 L Hct 21.8 L MCHC RDW Plt Count Lymph % (Auto) Nelson % (Auto) Lymph # (Auto) Nelson # (Auto) Eos # (Auto) Seg Neutrophils % Seg Neuts % (Manual) Lymphocytes % (Manual) Monocytes % (Manual) Nucleated RBC % Seg Neutrophils # Seg Neutrophils # Man Lymphocytes # (Manual) Monocytes # (Manual) Eosinophils # (Manual) Basophils # (Manual) PT INR APTT D-Dimer Heparin Anti-Xa Level ABG pH 7.457 H POC ABG pCO2 POC ABG pO2 79.4 L ABG pO2 ABG HCO3 ABG Hemoglobin 8.5 L ABG Oxyhemoglobin ABG Sodium 128.4 L ABG Potassium ABG Chloride 97.0 L ABG Glucose 100 H Carboxyhemoglobin Sodium 133 L Potassium 5.2 H Chloride 93.3 L Carbon Dioxide BUN 66 H Creatinine 4.1 H Glucose 102 H POC Glucose Lactic Acid Calcium 7.2 L Phosphorus Magnesium Ferritin Direct Bilirubin AST ALT Alkaline Phosphatase Lactate Dehydrogenase Total Creatine Kinase C-Reactive Protein Total Protein Albumin Triglycerides Arterial Blood Glucose 100 H Arterial Blood Ionized Calcium 3.9 L Urine Creatinine Urine Chloride Vancomycin Trough Coronavirus (PCR) Crossmatch 07/02/20 07/03/20 07/03/20 11:33 03:54 09:15 WBC 16.6 H RBC 2.44 L Hgb 7.3 L Hct 21.4 L MCHC RDW Plt Count Lymph % (Auto) Nelson % (Auto) Lymph # (Auto) Nelson # (Auto) Eos # (Auto) Seg Neutrophils % Seg Neuts % (Manual) Lymphocytes % (Manual) Monocytes % (Manual) Nucleated RBC % Seg Neutrophils # Seg Neutrophils # Man Lymphocytes # (Manual) Monocytes # (Manual) Eosinophils # (Manual) Basophils # (Manual) PT INR APTT D-Dimer Heparin Anti-Xa Level ABG pH POC ABG pCO2 POC ABG pO2 66.1 L ABG pO2 ABG HCO3 ABG Hemoglobin 8.0 L ABG Oxyhemoglobin ABG Sodium 124.6 L ABG Potassium 5.5 H ABG Chloride 96.0 L ABG Glucose 111 H Carboxyhemoglobin Sodium Potassium Chloride Carbon Dioxide BUN Creatinine Glucose POC Glucose Lactic Acid Calcium Phosphorus Magnesium Ferritin Direct Bilirubin 0.7 H AST 94 H ALT 60 H Alkaline Phosphatase Lactate Dehydrogenase Total Creatine Kinase C-Reactive Protein Total Protein 4.4 L Albumin 1.9 L Triglycerides Arterial Blood Glucose 111 H Arterial Blood Ionized Calcium 3.8 L Urine Creatinine Urine Chloride Vancomycin Trough Coronavirus (PCR) Crossmatch 07/03/20 07/03/20 07/03/20 09:15 10:10 14:50 WBC RBC Hgb Hct MCHC RDW Plt Count Lymph % (Auto) Nelson % (Auto) Lymph # (Auto) Nelson # (Auto) Eos # (Auto) Seg Neutrophils % Seg Neuts % (Manual) Lymphocytes % (Manual) Monocytes % (Manual) Nucleated RBC % Seg Neutrophils # Seg Neutrophils # Man Lymphocytes # (Manual) Monocytes # (Manual) Eosinophils # (Manual) Basophils # (Manual) PT INR APTT D-Dimer 6608.00 H Heparin Anti-Xa Level ABG pH POC ABG pCO2 POC ABG pO2 ABG pO2 ABG HCO3 ABG Hemoglobin ABG Oxyhemoglobin ABG Sodium ABG Potassium ABG Chloride ABG Glucose Carboxyhemoglobin Sodium 133 L Potassium 6.2 H* Chloride 93.1 L Carbon Dioxide BUN 89 H Creatinine 5.1 H Glucose POC Glucose Lactic Acid Calcium 7.0 L Phosphorus Magnesium Ferritin Direct Bilirubin AST ALT Alkaline Phosphatase Lactate Dehydrogenase Total Creatine Kinase C-Reactive Protein Total Protein Albumin Triglycerides Arterial Blood Glucose Arterial Blood Ionized Calcium Urine Creatinine Urine Chloride Vancomycin Trough Coronavirus (PCR) Positive A Crossmatch 07/03/20 07/03/20 07/03/20 14:50 14:50 14:50 WBC RBC Hgb Hct MCHC RDW Plt Count Lymph % (Auto) Nelson % (Auto) Lymph # (Auto) Nelson # (Auto) Eos # (Auto) Seg Neutrophils % Seg Neuts % (Manual) Lymphocytes % (Manual) Monocytes % (Manual) Nucleated RBC % Seg Neutrophils # Seg Neutrophils # Man Lymphocytes # (Manual) Monocytes # (Manual) Eosinophils # (Manual) Basophils # (Manual) PT INR APTT D-Dimer Heparin Anti-Xa Level ABG pH POC ABG pCO2 POC ABG pO2 ABG pO2 ABG HCO3 ABG Hemoglobin ABG Oxyhemoglobin ABG Sodium ABG Potassium ABG Chloride ABG Glucose Carboxyhemoglobin Sodium Potassium Chloride Carbon Dioxide BUN Creatinine Glucose POC Glucose Lactic Acid < 0.20 L Calcium Phosphorus Magnesium Ferritin 1171.0 H Direct Bilirubin AST ALT Alkaline Phosphatase Lactate Dehydrogenase 525 H Total Creatine Kinase C-Reactive Protein 31.50 H Total Protein Albumin Triglycerides Arterial Blood Glucose Arterial Blood Ionized Calcium Urine Creatinine Urine Chloride Vancomycin Trough Coronavirus (PCR) Crossmatch 07/03/20 07/04/20 07/04/20 16:47 05:20 05:20 WBC 11.8 H RBC 2.32 L Hgb 6.7 L Hct 20.8 L MCHC RDW Plt Count Lymph % (Auto) 2.6 L Nelson % (Auto) Lymph # (Auto) 0.3 L Nelson # (Auto) Eos # (Auto) Seg Neutrophils % Seg Neuts % (Manual) Lymphocytes % (Manual) Monocytes % (Manual) Nucleated RBC % Seg Neutrophils # 11.0 H Seg Neutrophils # Man Lymphocytes # (Manual) Monocytes # (Manual) Eosinophils # (Manual) Basophils # (Manual) PT INR APTT D-Dimer Heparin Anti-Xa Level ABG pH POC ABG pCO2 POC ABG pO2 ABG pO2 ABG HCO3 ABG Hemoglobin ABG Oxyhemoglobin ABG Sodium ABG Potassium ABG Chloride ABG Glucose Carboxyhemoglobin Sodium Potassium 6.0 H Chloride 97.8 L Carbon Dioxide BUN 75 H Creatinine 4.5 H Glucose 121 H POC Glucose 107 H Lactic Acid Calcium 7.9 L Phosphorus Magnesium Ferritin Direct Bilirubin AST ALT Alkaline Phosphatase Lactate Dehydrogenase Total Creatine Kinase C-Reactive Protein Total Protein Albumin Triglycerides Arterial Blood Glucose Arterial Blood Ionized Calcium Urine Creatinine Urine Chloride Vancomycin Trough Coronavirus (PCR) Crossmatch 07/04/20 07/04/20 07/04/20 05:20 05:50 09:25 WBC RBC Hgb Hct MCHC RDW Plt Count Lymph % (Auto) Nelson % (Auto) Lymph # (Auto) Nelson # (Auto) Eos # (Auto) Seg Neutrophils % Seg Neuts % (Manual) Lymphocytes % (Manual) Monocytes % (Manual) Nucleated RBC % Seg Neutrophils # Seg Neutrophils # Man Lymphocytes # (Manual) Monocytes # (Manual) Eosinophils # (Manual) Basophils # (Manual) PT INR APTT D-Dimer Heparin Anti-Xa Level ABG pH 7.324 L POC ABG pCO2 POC ABG pO2 ABG pO2 98.9 H ABG HCO3 26.8 H ABG Hemoglobin < 5.1 L ABG Oxyhemoglobin ABG Sodium ABG Potassium ABG Chloride ABG Glucose Carboxyhemoglobin Sodium Potassium Chloride Carbon Dioxide BUN Creatinine Glucose POC Glucose 114 H Lactic Acid Calcium Phosphorus Magnesium Ferritin Direct Bilirubin AST ALT Alkaline Phosphatase Lactate Dehydrogenase Total Creatine Kinase C-Reactive Protein Total Protein Albumin Triglycerides Arterial Blood Glucose Arterial Blood Ionized Calcium Urine Creatinine Urine Chloride Vancomycin Trough Coronavirus (PCR) Crossmatch See Detail 07/04/20 07/04/20 07/04/20 12:33 17:41 23:04 WBC RBC Hgb Hct MCHC RDW Plt Count Lymph % (Auto) Nelson % (Auto) Lymph # (Auto) Nelson # (Auto) Eos # (Auto) Seg Neutrophils % Seg Neuts % (Manual) Lymphocytes % (Manual) Monocytes % (Manual) Nucleated RBC % Seg Neutrophils # Seg Neutrophils # Man Lymphocytes # (Manual) Monocytes # (Manual) Eosinophils # (Manual) Basophils # (Manual) PT INR APTT D-Dimer Heparin Anti-Xa Level ABG pH POC ABG pCO2 POC ABG pO2 ABG pO2 ABG HCO3 ABG Hemoglobin ABG Oxyhemoglobin ABG Sodium ABG Potassium ABG Chloride ABG Glucose Carboxyhemoglobin Sodium Potassium Chloride Carbon Dioxide BUN Creatinine Glucose POC Glucose 119 H 109 H 116 H Lactic Acid Calcium Phosphorus Magnesium Ferritin Direct Bilirubin AST ALT Alkaline Phosphatase Lactate Dehydrogenase Total Creatine Kinase C-Reactive Protein Total Protein Albumin Triglycerides Arterial Blood Glucose Arterial Blood Ionized Calcium Urine Creatinine Urine Chloride Vancomycin Trough Coronavirus (PCR) Crossmatch 07/05/20 07/05/20 07/05/20 04:30 08:21 08:21 WBC RBC 2.77 L Hgb 7.9 L Hct 23.9 L MCHC RDW 16.7 H Plt Count Lymph % (Auto) 7.5 L Nelson % (Auto) Lymph # (Auto) 0.7 L Nelson # (Auto) Eos # (Auto) Seg Neutrophils % 85.8 H Seg Neuts % (Manual) Lymphocytes % (Manual) Monocytes % (Manual) Nucleated RBC % Seg Neutrophils # 7.8 H Seg Neutrophils # Man Lymphocytes # (Manual) Monocytes # (Manual) Eosinophils # (Manual) Basophils # (Manual) PT INR APTT D-Dimer Heparin Anti-Xa Level ABG pH 7.295 L POC ABG pCO2 POC ABG pO2 ABG pO2 151.9 H ABG HCO3 26.8 H ABG Hemoglobin 7.3 L ABG Oxyhemoglobin ABG Sodium ABG Potassium ABG Chloride ABG Glucose Carboxyhemoglobin Sodium Potassium Chloride Carbon Dioxide BUN Creatinine Glucose POC Glucose Lactic Acid Calcium Phosphorus Magnesium Ferritin Direct Bilirubin AST ALT Alkaline Phosphatase Lactate Dehydrogenase Total Creatine Kinase C-Reactive Protein Total Protein Albumin Triglycerides 258 H Arterial Blood Glucose Arterial Blood Ionized Calcium Urine Creatinine Urine Chloride Vancomycin Trough Coronavirus (PCR) Crossmatch 07/05/20 07/05/20 07/06/20 08:21 12:12 04:29 WBC RBC Hgb Hct MCHC RDW Plt Count Lymph % (Auto) Nelson % (Auto) Lymph # (Auto) Nelson # (Auto) Eos # (Auto) Seg Neutrophils % Seg Neuts % (Manual) Lymphocytes % (Manual) Monocytes % (Manual) Nucleated RBC % Seg Neutrophils # Seg Neutrophils # Man Lymphocytes # (Manual) Monocytes # (Manual) Eosinophils # (Manual) Basophils # (Manual) PT INR APTT D-Dimer Heparin Anti-Xa Level ABG pH 7.291 L POC ABG pCO2 51.3 H POC ABG pO2 ABG pO2 ABG HCO3 ABG Hemoglobin 8.5 L ABG Oxyhemoglobin ABG Sodium 129.6 L ABG Potassium 4.8 H ABG Chloride 96.0 L ABG Glucose Carboxyhemoglobin Sodium 133 L Potassium 5.6 H Chloride 94.4 L Carbon Dioxide BUN 80 H Creatinine 4.2 H Glucose 114 H POC Glucose 106 H Lactic Acid Calcium 7.6 L Phosphorus Magnesium Ferritin Direct Bilirubin 0.5 H AST 75 H ALT 86 H Alkaline Phosphatase Lactate Dehydrogenase Total Creatine Kinase C-Reactive Protein Total Protein 5.6 L D Albumin 1.9 L Triglycerides Arterial Blood Glucose Arterial Blood Ionized Calcium 4.2 L Urine Creatinine Urine Chloride Vancomycin Trough Coronavirus (PCR) Crossmatch 07/06/20 07/06/20 07/06/20 11:35 11:35 12:16 WBC RBC 2.54 L Hgb 7.5 L Hct 21.5 L MCHC 35 H RDW 15.7 H Plt Count Lymph % (Auto) Nelson % (Auto) Lymph # (Auto) Nelson # (Auto) Eos # (Auto) Seg Neutrophils % Seg Neuts % (Manual) Lymphocytes % (Manual) Monocytes % (Manual) Nucleated RBC % Seg Neutrophils # Seg Neutrophils # Man Lymphocytes # (Manual) Monocytes # (Manual) Eosinophils # (Manual) Basophils # (Manual) PT INR APTT D-Dimer Heparin Anti-Xa Level ABG pH POC ABG pCO2 POC ABG pO2 ABG pO2 ABG HCO3 ABG Hemoglobin ABG Oxyhemoglobin ABG Sodium ABG Potassium ABG Chloride ABG Glucose Carboxyhemoglobin Sodium 130 L Potassium Chloride 92.2 L Carbon Dioxide 19 L D BUN 107 H Creatinine 5.1 H Glucose 106 H POC Glucose 106 H Lactic Acid Calcium 7.5 L Phosphorus Magnesium Ferritin Direct Bilirubin AST ALT Alkaline Phosphatase Lactate Dehydrogenase Total Creatine Kinase C-Reactive Protein Total Protein Albumin Triglycerides Arterial Blood Glucose Arterial Blood Ionized Calcium Urine Creatinine Urine Chloride Vancomycin Trough Coronavirus (PCR) Crossmatch 07/06/20 07/06/20 07/06/20 17:01 21:56 23:41 WBC RBC Hgb Hct MCHC RDW Plt Count Lymph % (Auto) Nelson % (Auto) Lymph # (Auto) Nelson # (Auto) Eos # (Auto) Seg Neutrophils % Seg Neuts % (Manual) Lymphocytes % (Manual) Monocytes % (Manual) Nucleated RBC % Seg Neutrophils # Seg Neutrophils # Man Lymphocytes # (Manual) Monocytes # (Manual) Eosinophils # (Manual) Basophils # (Manual) PT INR APTT D-Dimer Heparin Anti-Xa Level ABG pH POC ABG pCO2 POC ABG pO2 ABG pO2 ABG HCO3 ABG Hemoglobin ABG Oxyhemoglobin ABG Sodium ABG Potassium ABG Chloride ABG Glucose Carboxyhemoglobin Sodium 135 L Potassium 5.1 H Chloride Carbon Dioxide BUN 73 H Creatinine 4.0 H Glucose 112 H POC Glucose 109 H 111 H Lactic Acid Calcium 7.8 L Phosphorus Magnesium Ferritin Direct Bilirubin AST ALT Alkaline Phosphatase Lactate Dehydrogenase Total Creatine Kinase C-Reactive Protein Total Protein Albumin Triglycerides Arterial Blood Glucose Arterial Blood Ionized Calcium Urine Creatinine Urine Chloride Vancomycin Trough Coronavirus (PCR) Crossmatch 07/07/20 07/07/20 07/07/20 04:18 05:04 05:29 WBC RBC 2.46 L Hgb 7.6 L Hct 21.5 L MCHC 35 H RDW 16.5 H Plt Count Lymph % (Auto) Nelson % (Auto) Lymph # (Auto) Nelson # (Auto) Eos # (Auto) Seg Neutrophils % Seg Neuts % (Manual) 82.0 H Lymphocytes % (Manual) Monocytes % (Manual) Nucleated RBC % 1.0 H Seg Neutrophils # Seg Neutrophils # Man Lymphocytes # (Manual) 1.1 L Monocytes # (Manual) Eosinophils # (Manual) Basophils # (Manual) PT INR APTT D-Dimer Heparin Anti-Xa Level ABG pH POC ABG pCO2 POC ABG pO2 79.6 L ABG pO2 ABG HCO3 ABG Hemoglobin 8.2 L ABG Oxyhemoglobin ABG Sodium 133.3 L ABG Potassium 4.7 H ABG Chloride ABG Glucose 135 H Carboxyhemoglobin Sodium Potassium Chloride Carbon Dioxide BUN Creatinine Glucose POC Glucose 112 H Lactic Acid Calcium Phosphorus Magnesium Ferritin Direct Bilirubin AST ALT Alkaline Phosphatase Lactate Dehydrogenase Total Creatine Kinase C-Reactive Protein Total Protein Albumin Triglycerides Arterial Blood Glucose 135 H Arterial Blood Ionized Calcium 4.5 L Urine Creatinine Urine Chloride Vancomycin Trough Coronavirus (PCR) Crossmatch 07/07/20 07/07/20 07/07/20 10:17 12:18 17:43 WBC RBC Hgb Hct MCHC RDW Plt Count Lymph % (Auto) Nelson % (Auto) Lymph # (Auto) Nelson # (Auto) Eos # (Auto) Seg Neutrophils % Seg Neuts % (Manual) Lymphocytes % (Manual) Monocytes % (Manual) Nucleated RBC % Seg Neutrophils # Seg Neutrophils # Man Lymphocytes # (Manual) Monocytes # (Manual) Eosinophils # (Manual) Basophils # (Manual) PT INR APTT D-Dimer Heparin Anti-Xa Level ABG pH POC ABG pCO2 POC ABG pO2 ABG pO2 ABG HCO3 ABG Hemoglobin ABG Oxyhemoglobin ABG Sodium ABG Potassium ABG Chloride ABG Glucose Carboxyhemoglobin Sodium 136 L Potassium Chloride 96.8 L Carbon Dioxide BUN 82 H Creatinine 4.3 H Glucose 129 H POC Glucose 108 H 116 H Lactic Acid Calcium 7.8 L Phosphorus Magnesium Ferritin Direct Bilirubin AST ALT Alkaline Phosphatase Lactate Dehydrogenase Total Creatine Kinase C-Reactive Protein Total Protein Albumin Triglycerides Arterial Blood Glucose Arterial Blood Ionized Calcium Urine Creatinine Urine Chloride Vancomycin Trough Coronavirus (PCR) Crossmatch 07/07/20 07/08/20 07/08/20 23:31 04:00 04:00 WBC RBC 2.52 L Hgb 7.3 L Hct 22.2 L MCHC RDW 16.6 H Plt Count Lymph % (Auto) 11.5 L Nelson % (Auto) Lymph # (Auto) Nelson # (Auto) Eos # (Auto) Seg Neutrophils % 78.2 H Seg Neuts % (Manual) Lymphocytes % (Manual) Monocytes % (Manual) Nucleated RBC % Seg Neutrophils # 8.0 H Seg Neutrophils # Man Lymphocytes # (Manual) Monocytes # (Manual) Eosinophils # (Manual) Basophils # (Manual) PT INR APTT D-Dimer Heparin Anti-Xa Level ABG pH POC ABG pCO2 POC ABG pO2 ABG pO2 ABG HCO3 ABG Hemoglobin ABG Oxyhemoglobin ABG Sodium ABG Potassium ABG Chloride ABG Glucose Carboxyhemoglobin Sodium 132 L Potassium 5.4 H Chloride 92.5 L Carbon Dioxide BUN 98 H Creatinine 4.9 H Glucose 105 H POC Glucose 117 H Lactic Acid Calcium 7.9 L Phosphorus Magnesium Ferritin Direct Bilirubin AST ALT Alkaline Phosphatase Lactate Dehydrogenase Total Creatine Kinase C-Reactive Protein Total Protein Albumin Triglycerides Arterial Blood Glucose Arterial Blood Ionized Calcium Urine Creatinine Urine Chloride Vancomycin Trough Coronavirus (PCR) Crossmatch 07/08/20 07/08/20 07/08/20 04:09 11:34 17:05 WBC RBC Hgb Hct MCHC RDW Plt Count Lymph % (Auto) Nelson % (Auto) Lymph # (Auto) Nelson # (Auto) Eos # (Auto) Seg Neutrophils % Seg Neuts % (Manual) Lymphocytes % (Manual) Monocytes % (Manual) Nucleated RBC % Seg Neutrophils # Seg Neutrophils # Man Lymphocytes # (Manual) Monocytes # (Manual) Eosinophils # (Manual) Basophils # (Manual) PT INR APTT D-Dimer Heparin Anti-Xa Level ABG pH 7.220 L POC ABG pCO2 60.5 H POC ABG pO2 ABG pO2 ABG HCO3 ABG Hemoglobin 8.2 L ABG Oxyhemoglobin ABG Sodium 131.3 L ABG Potassium 5.2 H ABG Chloride ABG Glucose 103 H Carboxyhemoglobin Sodium Potassium Chloride Carbon Dioxide BUN Creatinine Glucose POC Glucose 140 H 125 H Lactic Acid Calcium Phosphorus Magnesium Ferritin Direct Bilirubin AST ALT Alkaline Phosphatase Lactate Dehydrogenase Total Creatine Kinase C-Reactive Protein Total Protein Albumin Triglycerides Arterial Blood Glucose 103 H Arterial Blood Ionized Calcium 4.3 L Urine Creatinine Urine Chloride Vancomycin Trough Coronavirus (PCR) Crossmatch 07/08/20 07/08/20 07/09/20 20:21 23:43 05:10 WBC RBC Hgb Hct MCHC RDW Plt Count Lymph % (Auto) Nelson % (Auto) Lymph # (Auto) Nelson # (Auto) Eos # (Auto) Seg Neutrophils % Seg Neuts % (Manual) Lymphocytes % (Manual) Monocytes % (Manual) Nucleated RBC % Seg Neutrophils # Seg Neutrophils # Man Lymphocytes # (Manual) Monocytes # (Manual) Eosinophils # (Manual) Basophils # (Manual) PT INR APTT D-Dimer Heparin Anti-Xa Level ABG pH 7.20 L POC ABG pCO2 69.8 H POC ABG pO2 138.9 H 76.1 L ABG pO2 ABG HCO3 ABG Hemoglobin 11.9 L 8.4 L ABG Oxyhemoglobin ABG Sodium 133.1 L 131.2 L ABG Potassium 5.0 H 4.7 H ABG Chloride ABG Glucose 120 H 102 H Carboxyhemoglobin Sodium Potassium Chloride Carbon Dioxide BUN Creatinine Glucose POC Glucose 118 H Lactic Acid Calcium Phosphorus Magnesium Ferritin Direct Bilirubin AST ALT Alkaline Phosphatase Lactate Dehydrogenase Total Creatine Kinase C-Reactive Protein Total Protein Albumin Triglycerides Arterial Blood Glucose 120 H 102 H Arterial Blood Ionized Calcium 4.4 L 4.3 L Urine Creatinine Urine Chloride Vancomycin Trough Coronavirus (PCR) Crossmatch 07/09/20 07/09/20 07/09/20 11:51 17:04 21:00 WBC RBC Hgb Hct MCHC RDW Plt Count Lymph % (Auto) Nelson % (Auto) Lymph # (Auto) Nelson # (Auto) Eos # (Auto) Seg Neutrophils % Seg Neuts % (Manual) Lymphocytes % (Manual) Monocytes % (Manual) Nucleated RBC % Seg Neutrophils # Seg Neutrophils # Man Lymphocytes # (Manual) Monocytes # (Manual) Eosinophils # (Manual) Basophils # (Manual) PT INR APTT D-Dimer Heparin Anti-Xa Level ABG pH POC ABG pCO2 POC ABG pO2 114.2 H ABG pO2 ABG HCO3 ABG Hemoglobin 7.8 L ABG Oxyhemoglobin ABG Sodium 132.3 L ABG Potassium 4.6 H ABG Chloride ABG Glucose Carboxyhemoglobin Sodium Potassium Chloride Carbon Dioxide BUN Creatinine Glucose POC Glucose 113 H 111 H Lactic Acid Calcium Phosphorus Magnesium Ferritin Direct Bilirubin AST ALT Alkaline Phosphatase Lactate Dehydrogenase Total Creatine Kinase C-Reactive Protein Total Protein Albumin Triglycerides Arterial Blood Glucose Arterial Blood Ionized Calcium 4.4 L Urine Creatinine Urine Chloride Vancomycin Trough Coronavirus (PCR) Crossmatch 07/10/20 07/10/20 07/10/20 03:49 03:55 03:55 WBC 18.1 H RBC 2.37 L Hgb 6.8 L Hct 20.7 L MCHC RDW 16.9 H Plt Count Lymph % (Auto) Nelson % (Auto) Lymph # (Auto) Nelson # (Auto) Eos # (Auto) Seg Neutrophils % Seg Neuts % (Manual) 79.0 H Lymphocytes % (Manual) 10.0 L Monocytes % (Manual) Nucleated RBC % 1.0 H Seg Neutrophils # Seg Neutrophils # Man 14.3 H Lymphocytes # (Manual) Monocytes # (Manual) Eosinophils # (Manual) 0.7 H Basophils # (Manual) PT INR APTT D-Dimer Heparin Anti-Xa Level ABG pH POC ABG pCO2 POC ABG pO2 ABG pO2 ABG HCO3 ABG Hemoglobin 7.7 L ABG Oxyhemoglobin ABG Sodium 130.3 L ABG Potassium 4.6 H ABG Chloride ABG Glucose Carboxyhemoglobin Sodium 136 L Potassium Chloride 96.0 L Carbon Dioxide BUN 76 H Creatinine 3.6 H Glucose POC Glucose Lactic Acid Calcium 7.4 L Phosphorus Magnesium Ferritin Direct Bilirubin AST ALT Alkaline Phosphatase Lactate Dehydrogenase Total Creatine Kinase C-Reactive Protein Total Protein Albumin Triglycerides Arterial Blood Glucose Arterial Blood Ionized Calcium 4.2 L Urine Creatinine Urine Chloride Vancomycin Trough Coronavirus (PCR) Crossmatch 07/10/20 07/11/20 07/11/20 13:24 04:08 06:52 WBC 26.0 H RBC 2.91 L Hgb 8.2 L Hct 24.8 L MCHC RDW 17.2 H Plt Count Lymph % (Auto) Nelson % (Auto) Lymph # (Auto) Nelson # (Auto) Eos # (Auto) Seg Neutrophils % Seg Neuts % (Manual) Lymphocytes % (Manual) 1.0 L Monocytes % (Manual) 11.0 H Nucleated RBC % Seg Neutrophils # Seg Neutrophils # Man 16.9 H Lymphocytes # (Manual) 0.3 L Monocytes # (Manual) 2.9 H Eosinophils # (Manual) 1.0 H Basophils # (Manual) PT INR APTT D-Dimer Heparin Anti-Xa Level ABG pH POC ABG pCO2 POC ABG pO2 ABG pO2 ABG HCO3 ABG Hemoglobin 8.5 L ABG Oxyhemoglobin ABG Sodium 130.6 L ABG Potassium 4.9 H ABG Chloride ABG Glucose 105 H Carboxyhemoglobin Sodium Potassium Chloride Carbon Dioxide BUN Creatinine Glucose POC Glucose Lactic Acid Calcium Phosphorus Magnesium Ferritin Direct Bilirubin AST ALT Alkaline Phosphatase Lactate Dehydrogenase Total Creatine Kinase C-Reactive Protein Total Protein Albumin Triglycerides Arterial Blood Glucose 105 H Arterial Blood Ionized Calcium 4.1 L Urine Creatinine Urine Chloride Vancomycin Trough Coronavirus (PCR) Crossmatch See Detail 07/11/20 07/11/20 07/11/20 06:52 08:48 11:39 WBC RBC Hgb Hct MCHC RDW Plt Count Lymph % (Auto) Nelson % (Auto) Lymph # (Auto) Nelson # (Auto) Eos # (Auto) Seg Neutrophils % Seg Neuts % (Manual) Lymphocytes % (Manual) Monocytes % (Manual) Nucleated RBC % Seg Neutrophils # Seg Neutrophils # Man Lymphocytes # (Manual) Monocytes # (Manual) Eosinophils # (Manual) Basophils # (Manual) PT INR APTT D-Dimer Heparin Anti-Xa Level ABG pH POC ABG pCO2 POC ABG pO2 ABG pO2 ABG HCO3 ABG Hemoglobin ABG Oxyhemoglobin ABG Sodium ABG Potassium ABG Chloride ABG Glucose Carboxyhemoglobin Sodium 133 L 134 L Potassium 5.3 H Chloride 93.5 L 94.8 L Carbon Dioxide BUN 101 H 99 H Creatinine 4.5 H 4.6 H Glucose 102 H POC Glucose 116 H Lactic Acid Calcium 7.8 L 7.6 L Phosphorus Magnesium Ferritin Direct Bilirubin AST ALT Alkaline Phosphatase Lactate Dehydrogenase Total Creatine Kinase C-Reactive Protein Total Protein Albumin Triglycerides Arterial Blood Glucose Arterial Blood Ionized Calcium Urine Creatinine Urine Chloride Vancomycin Trough Coronavirus (PCR) Crossmatch 07/11/20 07/12/20 07/12/20 17:23 00:04 03:20 WBC RBC Hgb Hct MCHC RDW Plt Count Lymph % (Auto) Nelson % (Auto) Lymph # (Auto) Nelson # (Auto) Eos # (Auto) Seg Neutrophils % Seg Neuts % (Manual) Lymphocytes % (Manual) Monocytes % (Manual) Nucleated RBC % Seg Neutrophils # Seg Neutrophils # Man Lymphocytes # (Manual) Monocytes # (Manual) Eosinophils # (Manual) Basophils # (Manual) PT INR APTT D-Dimer Heparin Anti-Xa Level ABG pH POC ABG pCO2 49.1 H POC ABG pO2 130.3 H ABG pO2 ABG HCO3 ABG Hemoglobin 8.7 L ABG Oxyhemoglobin ABG Sodium 135.2 L ABG Potassium 4.7 H ABG Chloride ABG Glucose 128 H Carboxyhemoglobin Sodium Potassium Chloride Carbon Dioxide BUN Creatinine Glucose POC Glucose 142 H 113 H Lactic Acid Calcium Phosphorus Magnesium Ferritin Direct Bilirubin AST ALT Alkaline Phosphatase Lactate Dehydrogenase Total Creatine Kinase C-Reactive Protein Total Protein Albumin Triglycerides Arterial Blood Glucose 128 H Arterial Blood Ionized Calcium 4.4 L Urine Creatinine Urine Chloride Vancomycin Trough Coronavirus (PCR) Crossmatch 07/12/20 07/12/20 07/12/20 03:40 03:40 04:00 WBC 24.3 H RBC 2.83 L Hgb 8.0 L Hct 24.9 L MCHC RDW 17.7 H Plt Count Lymph % (Auto) 5.6 L Nelson % (Auto) 7.4 H Lymph # (Auto) Nelson # (Auto) 1.8 H Eos # (Auto) 0.7 H Seg Neutrophils % 83.9 H Seg Neuts % (Manual) Lymphocytes % (Manual) Monocytes % (Manual) Nucleated RBC % Seg Neutrophils # 20.4 H Seg Neutrophils # Man Lymphocytes # (Manual) Monocytes # (Manual) Eosinophils # (Manual) Basophils # (Manual) PT INR APTT D-Dimer Heparin Anti-Xa Level ABG pH POC ABG pCO2 POC ABG pO2 ABG pO2 ABG HCO3 ABG Hemoglobin ABG Oxyhemoglobin ABG Sodium ABG Potassium ABG Chloride ABG Glucose Carboxyhemoglobin Sodium 134 L Potassium Chloride 95.5 L Carbon Dioxide BUN 79 H Creatinine 3.7 H Glucose 127 H POC Glucose Lactic Acid Calcium 7.8 L Phosphorus Magnesium Ferritin Direct Bilirubin AST ALT Alkaline Phosphatase Lactate Dehydrogenase Total Creatine Kinase C-Reactive Protein Total Protein Albumin Triglycerides 246 H Arterial Blood Glucose Arterial Blood Ionized Calcium Urine Creatinine Urine Chloride Vancomycin Trough Coronavirus (PCR) Crossmatch 07/12/20 07/12/20 07/12/20 05:48 11:50 17:29 WBC RBC Hgb Hct MCHC RDW Plt Count Lymph % (Auto) Nelson % (Auto) Lymph # (Auto) Nelson # (Auto) Eos # (Auto) Seg Neutrophils % Seg Neuts % (Manual) Lymphocytes % (Manual) Monocytes % (Manual) Nucleated RBC % Seg Neutrophils # Seg Neutrophils # Man Lymphocytes # (Manual) Monocytes # (Manual) Eosinophils # (Manual) Basophils # (Manual) PT INR APTT D-Dimer Heparin Anti-Xa Level ABG pH POC ABG pCO2 POC ABG pO2 ABG pO2 ABG HCO3 ABG Hemoglobin ABG Oxyhemoglobin ABG Sodium ABG Potassium ABG Chloride ABG Glucose Carboxyhemoglobin Sodium Potassium Chloride Carbon Dioxide BUN Creatinine Glucose POC Glucose 136 H 113 H 110 H Lactic Acid Calcium Phosphorus Magnesium Ferritin Direct Bilirubin AST ALT Alkaline Phosphatase Lactate Dehydrogenase Total Creatine Kinase C-Reactive Protein Total Protein Albumin Triglycerides Arterial Blood Glucose Arterial Blood Ionized Calcium Urine Creatinine Urine Chloride Vancomycin Trough Coronavirus (PCR) Crossmatch 07/12/20 07/13/20 07/13/20 23:43 03:11 06:59 WBC RBC Hgb Hct MCHC RDW Plt Count Lymph % (Auto) Nelson % (Auto) Lymph # (Auto) Nelson # (Auto) Eos # (Auto) Seg Neutrophils % Seg Neuts % (Manual) Lymphocytes % (Manual) Monocytes % (Manual) Nucleated RBC % Seg Neutrophils # Seg Neutrophils # Man Lymphocytes # (Manual) Monocytes # (Manual) Eosinophils # (Manual) Basophils # (Manual) PT INR APTT D-Dimer Heparin Anti-Xa Level ABG pH POC ABG pCO2 49.0 H POC ABG pO2 69.6 L ABG pO2 ABG HCO3 ABG Hemoglobin 8.5 L ABG Oxyhemoglobin 90.5 L ABG Sodium 133.6 L ABG Potassium 5.1 H ABG Chloride ABG Glucose 104 H Carboxyhemoglobin Sodium 133 L Potassium 5.7 H Chloride 96.3 L Carbon Dioxide 20 L D BUN 102 H Creatinine 4.4 H Glucose 101 H POC Glucose 120 H Lactic Acid Calcium 7.9 L Phosphorus Magnesium Ferritin Direct Bilirubin AST 61 H ALT 85 H Alkaline Phosphatase 144 H Lactate Dehydrogenase Total Creatine Kinase C-Reactive Protein Total Protein 5.4 L Albumin 2.0 L Triglycerides Arterial Blood Glucose 104 H Arterial Blood Ionized Calcium 4.3 L Urine Creatinine Urine Chloride Vancomycin Trough Coronavirus (PCR) Crossmatch 07/13/20 07/13/20 07/13/20 08:48 12:14 15:12 WBC 27.5 H RBC 3.03 L Hgb 8.7 L Hct 27.0 L MCHC RDW 18.0 H Plt Count Lymph % (Auto) Nelson % (Auto) Lymph # (Auto) Nelson # (Auto) Eos # (Auto) Seg Neutrophils % Seg Neuts % (Manual) Lymphocytes % (Manual) Monocytes % (Manual) Nucleated RBC % Seg Neutrophils # Seg Neutrophils # Man Lymphocytes # (Manual) Monocytes # (Manual) Eosinophils # (Manual) Basophils # (Manual) PT INR APTT D-Dimer Heparin Anti-Xa Level ABG pH POC ABG pCO2 POC ABG pO2 ABG pO2 ABG HCO3 ABG Hemoglobin ABG Oxyhemoglobin ABG Sodium ABG Potassium ABG Chloride ABG Glucose Carboxyhemoglobin Sodium Potassium 5.5 H Chloride Carbon Dioxide BUN 88 H Creatinine 3.8 H Glucose 133 H POC Glucose 134 H Lactic Acid Calcium 7.5 L Phosphorus Magnesium Ferritin Direct Bilirubin AST ALT Alkaline Phosphatase Lactate Dehydrogenase Total Creatine Kinase C-Reactive Protein Total Protein Albumin Triglycerides Arterial Blood Glucose Arterial Blood Ionized Calcium Urine Creatinine Urine Chloride Vancomycin Trough Coronavirus (PCR) Crossmatch 07/13/20 07/13/20 07/13/20 16:46 16:47 18:46 WBC RBC Hgb 7.4 L Hct 22.1 L MCHC RDW Plt Count Lymph % (Auto) Nelson % (Auto) Lymph # (Auto) Nelson # (Auto) Eos # (Auto) Seg Neutrophils % Seg Neuts % (Manual) Lymphocytes % (Manual) Monocytes % (Manual) Nucleated RBC % Seg Neutrophils # Seg Neutrophils # Man Lymphocytes # (Manual) Monocytes # (Manual) Eosinophils # (Manual) Basophils # (Manual) PT INR APTT D-Dimer Heparin Anti-Xa Level ABG pH POC ABG pCO2 POC ABG pO2 ABG pO2 ABG HCO3 ABG Hemoglobin ABG Oxyhemoglobin ABG Sodium ABG Potassium ABG Chloride ABG Glucose Carboxyhemoglobin Sodium Potassium Chloride Carbon Dioxide BUN Creatinine Glucose POC Glucose 118 H Lactic Acid Calcium Phosphorus Magnesium Ferritin Direct Bilirubin AST ALT Alkaline Phosphatase Lactate Dehydrogenase Total Creatine Kinase C-Reactive Protein Total Protein Albumin Triglycerides Arterial Blood Glucose Arterial Blood Ionized Calcium Urine Creatinine Urine Chloride Vancomycin Trough Coronavirus (PCR) Crossmatch See Detail 07/13/20 07/14/20 07/14/20 23:34 04:25 12:21 WBC RBC Hgb Hct MCHC RDW Plt Count Lymph % (Auto) Nelson % (Auto) Lymph # (Auto) Nelson # (Auto) Eos # (Auto) Seg Neutrophils % Seg Neuts % (Manual) Lymphocytes % (Manual) Monocytes % (Manual) Nucleated RBC % Seg Neutrophils # Seg Neutrophils # Man Lymphocytes # (Manual) Monocytes # (Manual) Eosinophils # (Manual) Basophils # (Manual) PT INR APTT D-Dimer Heparin Anti-Xa Level ABG pH POC ABG pCO2 POC ABG pO2 ABG pO2 ABG HCO3 ABG Hemoglobin 8.9 L ABG Oxyhemoglobin ABG Sodium 133.1 L ABG Potassium 4.7 H ABG Chloride ABG Glucose 113 H Carboxyhemoglobin Sodium Potassium Chloride Carbon Dioxide BUN Creatinine Glucose POC Glucose 109 H 109 H Lactic Acid Calcium Phosphorus Magnesium Ferritin Direct Bilirubin AST ALT Alkaline Phosphatase Lactate Dehydrogenase Total Creatine Kinase C-Reactive Protein Total Protein Albumin Triglycerides Arterial Blood Glucose 113 H Arterial Blood Ionized Calcium 4.4 L Urine Creatinine Urine Chloride Vancomycin Trough Coronavirus (PCR) Crossmatch 07/14/20 07/14/20 07/14/20 16:44 16:44 20:20 WBC 30.1 H RBC 2.60 L Hgb 7.4 L 5.6 L* Hct 23.0 L 18.1 L* MCHC RDW 18.0 H Plt Count Lymph % (Auto) Nelson % (Auto) Lymph # (Auto) Nelson # (Auto) Eos # (Auto) Seg Neutrophils % Seg Neuts % (Manual) 78.0 H Lymphocytes % (Manual) 5.0 L Monocytes % (Manual) Nucleated RBC % Seg Neutrophils # Seg Neutrophils # Man 23.5 H Lymphocytes # (Manual) Monocytes # (Manual) 0.9 H Eosinophils # (Manual) Basophils # (Manual) PT 15.6 H INR 1.26 H APTT D-Dimer Heparin Anti-Xa Level ABG pH POC ABG pCO2 POC ABG pO2 ABG pO2 ABG HCO3 ABG Hemoglobin ABG Oxyhemoglobin ABG Sodium ABG Potassium ABG Chloride ABG Glucose Carboxyhemoglobin Sodium Potassium Chloride Carbon Dioxide BUN Creatinine Glucose POC Glucose Lactic Acid Calcium Phosphorus Magnesium Ferritin Direct Bilirubin AST ALT Alkaline Phosphatase Lactate Dehydrogenase Total Creatine Kinase C-Reactive Protein Total Protein Albumin Triglycerides Arterial Blood Glucose Arterial Blood Ionized Calcium Urine Creatinine Urine Chloride Vancomycin Trough Coronavirus (PCR) Crossmatch 07/14/20 07/14/20 07/15/20 21:19 23:45 04:13 WBC RBC Hgb Hct MCHC RDW Plt Count Lymph % (Auto) Nelson % (Auto) Lymph # (Auto) Nelson # (Auto) Eos # (Auto) Seg Neutrophils % Seg Neuts % (Manual) Lymphocytes % (Manual) Monocytes % (Manual) Nucleated RBC % Seg Neutrophils # Seg Neutrophils # Man Lymphocytes # (Manual) Monocytes # (Manual) Eosinophils # (Manual) Basophils # (Manual) PT INR APTT D-Dimer Heparin Anti-Xa Level ABG pH POC ABG pCO2 POC ABG pO2 ABG pO2 ABG HCO3 ABG Hemoglobin 5.8 L 6.0 L ABG Oxyhemoglobin 93.8 L ABG Sodium 132.2 L 130.3 L ABG Potassium 5.5 H 5.8 H ABG Chloride ABG Glucose 118 H 122 H Carboxyhemoglobin Sodium Potassium Chloride Carbon Dioxide BUN Creatinine Glucose POC Glucose 126 H Lactic Acid Calcium Phosphorus Magnesium Ferritin Direct Bilirubin AST ALT Alkaline Phosphatase Lactate Dehydrogenase Total Creatine Kinase C-Reactive Protein Total Protein Albumin Triglycerides Arterial Blood Glucose 118 H 122 H Arterial Blood Ionized Calcium 4.3 L 4.2 L Urine Creatinine Urine Chloride Vancomycin Trough Coronavirus (PCR) Crossmatch 07/15/20 07/15/20 07/15/20 08:21 08:21 08:38 WBC 45.5 H* RBC 2.42 L Hgb 7.1 L Hct 21.5 L MCHC RDW 16.5 H Plt Count Lymph % (Auto) Nelson % (Auto) Lymph # (Auto) Nelson # (Auto) Eos # (Auto) Seg Neutrophils % Seg Neuts % (Manual) 89.0 H Lymphocytes % (Manual) 7.0 L Monocytes % (Manual) Nucleated RBC % Seg Neutrophils # Seg Neutrophils # Man 40.5 H Lymphocytes # (Manual) Monocytes # (Manual) 1.8 H Eosinophils # (Manual) Basophils # (Manual) PT 17.6 H INR 1.46 H APTT D-Dimer Heparin Anti-Xa Level ABG pH POC ABG pCO2 POC ABG pO2 ABG pO2 ABG HCO3 ABG Hemoglobin ABG Oxyhemoglobin ABG Sodium ABG Potassium ABG Chloride ABG Glucose Carboxyhemoglobin Sodium 131 L Potassium 6.0 H Chloride 94.6 L Carbon Dioxide 20 L BUN 116 H Creatinine 4.6 H Glucose 123 H POC Glucose Lactic Acid Calcium 7.6 L Phosphorus Magnesium Ferritin Direct Bilirubin AST ALT Alkaline Phosphatase Lactate Dehydrogenase Total Creatine Kinase C-Reactive Protein Total Protein Albumin Triglycerides Arterial Blood Glucose Arterial Blood Ionized Calcium Urine Creatinine Urine Chloride Vancomycin Trough Coronavirus (PCR) Crossmatch 07/15/20 07/15/20 07/15/20 11:29 17:23 18:52 WBC RBC Hgb Hct MCHC RDW Plt Count Lymph % (Auto) Nelson % (Auto) Lymph # (Auto) Nelson # (Auto) Eos # (Auto) Seg Neutrophils % Seg Neuts % (Manual) Lymphocytes % (Manual) Monocytes % (Manual) Nucleated RBC % Seg Neutrophils # Seg Neutrophils # Man Lymphocytes # (Manual) Monocytes # (Manual) Eosinophils # (Manual) Basophils # (Manual) PT INR APTT D-Dimer Heparin Anti-Xa Level ABG pH POC ABG pCO2 POC ABG pO2 ABG pO2 ABG HCO3 ABG Hemoglobin ABG Oxyhemoglobin ABG Sodium ABG Potassium ABG Chloride ABG Glucose Carboxyhemoglobin Sodium Potassium Chloride 97.9 L Carbon Dioxide BUN 78 H Creatinine 3.1 H Glucose 114 H POC Glucose 181 H 120 H Lactic Acid Calcium 7.3 L Phosphorus Magnesium Ferritin Direct Bilirubin AST ALT Alkaline Phosphatase Lactate Dehydrogenase Total Creatine Kinase C-Reactive Protein Total Protein Albumin Triglycerides Arterial Blood Glucose Arterial Blood Ionized Calcium Urine Creatinine Urine Chloride Vancomycin Trough Coronavirus (PCR) Crossmatch 07/15/20 07/16/20 07/16/20 18:52 01:10 03:38 WBC RBC Hgb 9.9 L 8.5 L Hct 29.8 L D 24.7 L MCHC RDW Plt Count Lymph % (Auto) Nelson % (Auto) Lymph # (Auto) Nelson # (Auto) Eos # (Auto) Seg Neutrophils % Seg Neuts % (Manual) Lymphocytes % (Manual) Monocytes % (Manual) Nucleated RBC % Seg Neutrophils # Seg Neutrophils # Man Lymphocytes # (Manual) Monocytes # (Manual) Eosinophils # (Manual) Basophils # (Manual) PT INR APTT D-Dimer Heparin Anti-Xa Level ABG pH 7.314 L POC ABG pCO2 48.5 H POC ABG pO2 58.9 L ABG pO2 ABG HCO3 ABG Hemoglobin 8.7 L ABG Oxyhemoglobin 86.7 L ABG Sodium 132.7 L ABG Potassium 5.2 H ABG Chloride ABG Glucose 99 H Carboxyhemoglobin Sodium Potassium Chloride Carbon Dioxide BUN Creatinine Glucose POC Glucose Lactic Acid Calcium Phosphorus Magnesium Ferritin Direct Bilirubin AST ALT Alkaline Phosphatase Lactate Dehydrogenase Total Creatine Kinase C-Reactive Protein Total Protein Albumin Triglycerides Arterial Blood Glucose 99 H Arterial Blood Ionized Calcium 3.9 L Urine Creatinine Urine Chloride Vancomycin Trough Coronavirus (PCR) Crossmatch 07/16/20 07/16/20 07/16/20 04:28 04:28 07:29 WBC 48.9 H* RBC 2.86 L Hgb 8.6 L 7.9 L Hct 25.4 L 24.4 L MCHC RDW 15.6 H Plt Count Lymph % (Auto) Nelson % (Auto) Lymph # (Auto) Nelson # (Auto) Eos # (Auto) Seg Neutrophils % Seg Neuts % (Manual) Lymphocytes % (Manual) Monocytes % (Manual) Nucleated RBC % Seg Neutrophils # Seg Neutrophils # Man Lymphocytes # (Manual) Monocytes # (Manual) Eosinophils # (Manual) Basophils # (Manual) PT INR APTT D-Dimer Heparin Anti-Xa Level ABG pH POC ABG pCO2 POC ABG pO2 ABG pO2 ABG HCO3 ABG Hemoglobin ABG Oxyhemoglobin ABG Sodium ABG Potassium ABG Chloride ABG Glucose Carboxyhemoglobin Sodium 136 L Potassium 5.4 H Chloride 95.0 L Carbon Dioxide BUN 85 H Creatinine 3.4 H Glucose 66 L POC Glucose Lactic Acid Calcium 6.8 L Phosphorus Magnesium Ferritin Direct Bilirubin AST ALT Alkaline Phosphatase Lactate Dehydrogenase Total Creatine Kinase C-Reactive Protein Total Protein Albumin Triglycerides Arterial Blood Glucose Arterial Blood Ionized Calcium Urine Creatinine Urine Chloride Vancomycin Trough Coronavirus (PCR) Crossmatch 07/16/20 07/16/20 07/16/20 11:52 18:06 18:08 WBC RBC Hgb 7.4 L Hct 22.5 L MCHC RDW Plt Count Lymph % (Auto) Nelson % (Auto) Lymph # (Auto) Nelson # (Auto) Eos # (Auto) Seg Neutrophils % Seg Neuts % (Manual) Lymphocytes % (Manual) Monocytes % (Manual) Nucleated RBC % Seg Neutrophils # Seg Neutrophils # Man Lymphocytes # (Manual) Monocytes # (Manual) Eosinophils # (Manual) Basophils # (Manual) PT INR APTT D-Dimer Heparin Anti-Xa Level ABG pH POC ABG pCO2 POC ABG pO2 ABG pO2 ABG HCO3 ABG Hemoglobin ABG Oxyhemoglobin ABG Sodium ABG Potassium ABG Chloride ABG Glucose Carboxyhemoglobin Sodium Potassium Chloride Carbon Dioxide BUN Creatinine Glucose POC Glucose 124 H 108 H Lactic Acid Calcium Phosphorus Magnesium Ferritin Direct Bilirubin AST ALT Alkaline Phosphatase Lactate Dehydrogenase Total Creatine Kinase C-Reactive Protein Total Protein Albumin Triglycerides Arterial Blood Glucose Arterial Blood Ionized Calcium Urine Creatinine Urine Chloride Vancomycin Trough Coronavirus (PCR) Crossmatch 07/17/20 07/17/20 07/17/20 03:27 15:25 15:25 WBC 46.2 H* RBC 2.05 L Hgb 6.1 L Hct 18.4 L* MCHC RDW 15.6 H Plt Count Lymph % (Auto) Nelson % (Auto) Lymph # (Auto) Nelson # (Auto) Eos # (Auto) Seg Neutrophils % Seg Neuts % (Manual) 87.0 H Lymphocytes % (Manual) 3.0 L Monocytes % (Manual) Nucleated RBC % Seg Neutrophils # Seg Neutrophils # Man 40.2 H Lymphocytes # (Manual) Monocytes # (Manual) 3.2 H Eosinophils # (Manual) Basophils # (Manual) PT 18.2 H INR 1.52 H APTT D-Dimer Heparin Anti-Xa Level ABG pH 7.313 L POC ABG pCO2 50.9 H POC ABG pO2 ABG pO2 ABG HCO3 ABG Hemoglobin 7.5 L ABG Oxyhemoglobin ABG Sodium 131.8 L ABG Potassium 4.6 H ABG Chloride ABG Glucose 105 H Carboxyhemoglobin Sodium Potassium Chloride Carbon Dioxide BUN Creatinine Glucose POC Glucose Lactic Acid Calcium Phosphorus Magnesium Ferritin Direct Bilirubin AST ALT Alkaline Phosphatase Lactate Dehydrogenase Total Creatine Kinase C-Reactive Protein Total Protein Albumin Triglycerides Arterial Blood Glucose 105 H Arterial Blood Ionized Calcium 3.9 L Urine Creatinine Urine Chloride Vancomycin Trough Coronavirus (PCR) Crossmatch 07/17/20 07/18/20 07/18/20 Unknown 03:10 05:06 WBC 37.9 H RBC 2.91 L Hgb 8.5 L Hct 25.6 L D MCHC RDW Plt Count Lymph % (Auto) Nelson % (Auto) Lymph # (Auto) Nelson # (Auto) Eos # (Auto) Seg Neutrophils % Seg Neuts % (Manual) Lymphocytes % (Manual) Monocytes % (Manual) Nucleated RBC % Seg Neutrophils # Seg Neutrophils # Man Lymphocytes # (Manual) Monocytes # (Manual) Eosinophils # (Manual) Basophils # (Manual) PT INR APTT D-Dimer Heparin Anti-Xa Level ABG pH POC ABG pCO2 POC ABG pO2 114.9 H ABG pO2 ABG HCO3 ABG Hemoglobin 8.6 L ABG Oxyhemoglobin ABG Sodium 130.6 L ABG Potassium 4.9 H ABG Chloride ABG Glucose Carboxyhemoglobin Sodium Potassium Chloride Carbon Dioxide BUN Creatinine Glucose POC Glucose Lactic Acid Calcium Phosphorus Magnesium Ferritin Direct Bilirubin AST ALT Alkaline Phosphatase Lactate Dehydrogenase Total Creatine Kinase C-Reactive Protein Total Protein Albumin Triglycerides Arterial Blood Glucose Arterial Blood Ionized Calcium 3.8 L Urine Creatinine Urine Chloride Vancomycin Trough Coronavirus (PCR) Crossmatch See Detail 07/18/20 07/19/20 07/19/20 05:06 00:06 03:57 WBC RBC Hgb Hct MCHC RDW Plt Count Lymph % (Auto) Nelson % (Auto) Lymph # (Auto) Nelson # (Auto) Eos # (Auto) Seg Neutrophils % Seg Neuts % (Manual) Lymphocytes % (Manual) Monocytes % (Manual) Nucleated RBC % Seg Neutrophils # Seg Neutrophils # Man Lymphocytes # (Manual) Monocytes # (Manual) Eosinophils # (Manual) Basophils # (Manual) PT INR APTT D-Dimer Heparin Anti-Xa Level ABG pH POC ABG pCO2 POC ABG pO2 ABG pO2 ABG HCO3 ABG Hemoglobin 8.6 L ABG Oxyhemoglobin ABG Sodium 130.4 L ABG Potassium ABG Chloride ABG Glucose Carboxyhemoglobin Sodium Potassium 5.4 H Chloride Carbon Dioxide BUN 79 H Creatinine 3.2 H Glucose POC Glucose 69 L Lactic Acid Calcium 6.9 L Phosphorus Magnesium Ferritin Direct Bilirubin AST ALT 58 H Alkaline Phosphatase Lactate Dehydrogenase Total Creatine Kinase C-Reactive Protein Total Protein 4.3 L D Albumin 1.7 L Triglycerides 306 H Arterial Blood Glucose Arterial Blood Ionized Calcium 3.9 L Urine Creatinine Urine Chloride Vancomycin Trough Coronavirus (PCR) Crossmatch 07/19/20 07/19/20 07/19/20 05:22 09:15 09:15 WBC 32.5 H RBC 2.57 L Hgb 7.8 L Hct 22.8 L MCHC RDW 15.3 H Plt Count Lymph % (Auto) Nelson % (Auto) Lymph # (Auto) Nelson # (Auto) Eos # (Auto) Seg Neutrophils % Seg Neuts % (Manual) Lymphocytes % (Manual) Monocytes % (Manual) Nucleated RBC % Seg Neutrophils # Seg Neutrophils # Man Lymphocytes # (Manual) Monocytes # (Manual) Eosinophils # (Manual) Basophils # (Manual) PT INR APTT D-Dimer Heparin Anti-Xa Level ABG pH POC ABG pCO2 POC ABG pO2 ABG pO2 ABG HCO3 ABG Hemoglobin ABG Oxyhemoglobin ABG Sodium ABG Potassium ABG Chloride ABG Glucose Carboxyhemoglobin Sodium 135 L Potassium Chloride 96.3 L Carbon Dioxide BUN 61 H Creatinine 2.8 H Glucose POC Glucose 64 L Lactic Acid Calcium 6.8 L Phosphorus Magnesium Ferritin Direct Bilirubin AST 54 H ALT 65 H Alkaline Phosphatase Lactate Dehydrogenase Total Creatine Kinase C-Reactive Protein Total Protein 4.3 L Albumin 1.8 L Triglycerides Arterial Blood Glucose Arterial Blood Ionized Calcium Urine Creatinine Urine Chloride Vancomycin Trough Coronavirus (PCR) Crossmatch 07/20/20 07/20/20 07/20/20 05:20 06:00 06:07 WBC 28.1 H RBC 2.53 L Hgb 7.7 L Hct 22.7 L MCHC RDW 15.5 H Plt Count Lymph % (Auto) Nelson % (Auto) Lymph # (Auto) Nelson # (Auto) Eos # (Auto) Seg Neutrophils % Seg Neuts % (Manual) Lymphocytes % (Manual) Monocytes % (Manual) Nucleated RBC % Seg Neutrophils # Seg Neutrophils # Man Lymphocytes # (Manual) Monocytes # (Manual) Eosinophils # (Manual) Basophils # (Manual) PT INR APTT D-Dimer Heparin Anti-Xa Level ABG pH POC ABG pCO2 POC ABG pO2 ABG pO2 ABG HCO3 ABG Hemoglobin 6.3 L ABG Oxyhemoglobin ABG Sodium 130.0 L ABG Potassium ABG Chloride ABG Glucose 114 H Carboxyhemoglobin Sodium Potassium Chloride Carbon Dioxide BUN Creatinine Glucose POC Glucose 110 H Lactic Acid Calcium Phosphorus Magnesium Ferritin Direct Bilirubin AST ALT Alkaline Phosphatase Lactate Dehydrogenase Total Creatine Kinase C-Reactive Protein Total Protein Albumin Triglycerides Arterial Blood Glucose 114 H Arterial Blood Ionized Calcium 3.9 L Urine Creatinine Urine Chloride Vancomycin Trough Coronavirus (PCR) Crossmatch 07/20/20 07/21/20 07/21/20 17:19 05:02 05:40 WBC 32.9 H RBC 2.78 L Hgb 8.5 L Hct 25.2 L MCHC RDW 15.7 H Plt Count 74 L Lymph % (Auto) Nelson % (Auto) Lymph # (Auto) Nelson # (Auto) Eos # (Auto) Seg Neutrophils % Seg Neuts % (Manual) Lymphocytes % (Manual) Monocytes % (Manual) Nucleated RBC % Seg Neutrophils # Seg Neutrophils # Man Lymphocytes # (Manual) Monocytes # (Manual) Eosinophils # (Manual) Basophils # (Manual) PT INR APTT D-Dimer Heparin Anti-Xa Level ABG pH POC ABG pCO2 POC ABG pO2 73.2 L ABG pO2 ABG HCO3 ABG Hemoglobin 9.1 L ABG Oxyhemoglobin 93.4 L ABG Sodium ABG Potassium 3.1 L ABG Chloride ABG Glucose 112 H Carboxyhemoglobin Sodium Potassium Chloride Carbon Dioxide BUN Creatinine Glucose POC Glucose 137 H Lactic Acid Calcium Phosphorus Magnesium Ferritin Direct Bilirubin AST ALT Alkaline Phosphatase Lactate Dehydrogenase Total Creatine Kinase C-Reactive Protein Total Protein Albumin Triglycerides Arterial Blood Glucose 112 H Arterial Blood Ionized Calcium Urine Creatinine Urine Chloride Vancomycin Trough Coronavirus (PCR) Crossmatch 07/22/20 07/22/20 07/22/20 04:11 16:00 16:00 WBC 38.7 H RBC 2.72 L Hgb 8.1 L Hct 24.5 L MCHC RDW 16.1 H Plt Count Lymph % (Auto) Nelson % (Auto) Lymph # (Auto) Nelson # (Auto) Eos # (Auto) Seg Neutrophils % Seg Neuts % (Manual) Lymphocytes % (Manual) Monocytes % (Manual) Nucleated RBC % Seg Neutrophils # Seg Neutrophils # Man Lymphocytes # (Manual) Monocytes # (Manual) Eosinophils # (Manual) Basophils # (Manual) PT INR APTT D-Dimer Heparin Anti-Xa Level ABG pH POC ABG pCO2 POC ABG pO2 67.7 L ABG pO2 ABG HCO3 ABG Hemoglobin 7.4 L ABG Oxyhemoglobin 91.7 L ABG Sodium ABG Potassium 2.9 L ABG Chloride ABG Glucose 105 H Carboxyhemoglobin Sodium Potassium Chloride Carbon Dioxide BUN Creatinine Glucose POC Glucose Lactic Acid Calcium Phosphorus Magnesium Ferritin Direct Bilirubin AST ALT Alkaline Phosphatase Lactate Dehydrogenase Total Creatine Kinase C-Reactive Protein Total Protein Albumin Triglycerides 197 H Arterial Blood Glucose 105 H Arterial Blood Ionized Calcium Urine Creatinine Urine Chloride Vancomycin Trough Coronavirus (PCR) Crossmatch 07/23/20 07/23/20 07/23/20 04:56 11:49 Unknown WBC RBC Hgb Hct MCHC RDW Plt Count Lymph % (Auto) Nelson % (Auto) Lymph # (Auto) Nelson # (Auto) Eos # (Auto) Seg Neutrophils % Seg Neuts % (Manual) Lymphocytes % (Manual) Monocytes % (Manual) Nucleated RBC % Seg Neutrophils # Seg Neutrophils # Man Lymphocytes # (Manual) Monocytes # (Manual) Eosinophils # (Manual) Basophils # (Manual) PT INR APTT D-Dimer Heparin Anti-Xa Level ABG pH POC ABG pCO2 POC ABG pO2 75.7 L ABG pO2 ABG HCO3 ABG Hemoglobin 9.3 L ABG Oxyhemoglobin ABG Sodium ABG Potassium 3.1 L ABG Chloride 108.0 H ABG Glucose 101 H Carboxyhemoglobin Sodium Potassium 3.1 L D Chloride Carbon Dioxide BUN 36 H Creatinine 2.1 H Glucose 103 H POC Glucose 107 H Lactic Acid Calcium Phosphorus Magnesium Ferritin Direct Bilirubin AST ALT Alkaline Phosphatase Lactate Dehydrogenase Total Creatine Kinase C-Reactive Protein Total Protein Albumin Triglycerides Arterial Blood Glucose 101 H Arterial Blood Ionized Calcium Urine Creatinine Urine Chloride Vancomycin Trough Coronavirus (PCR) Crossmatch 07/24/20 07/24/20 06:40 06:40 WBC 31.4 H RBC 2.37 L Hgb 7.2 L Hct 21.7 L MCHC RDW 17.0 H Plt Count Lymph % (Auto) Nelson % (Auto) Lymph # (Auto) Nelson # (Auto) Eos # (Auto) Seg Neutrophils % Seg Neuts % (Manual) 85.0 H Lymphocytes % (Manual) 6.0 L Monocytes % (Manual) Nucleated RBC % Seg Neutrophils # Seg Neutrophils # Man 26.7 H Lymphocytes # (Manual) Monocytes # (Manual) 0.9 H Eosinophils # (Manual) Basophils # (Manual) 0.3 H PT INR APTT D-Dimer Heparin Anti-Xa Level ABG pH POC ABG pCO2 POC ABG pO2 ABG pO2 ABG HCO3 ABG Hemoglobin ABG Oxyhemoglobin ABG Sodium ABG Potassium ABG Chloride ABG Glucose Carboxyhemoglobin Sodium Potassium 3.1 L Chloride Carbon Dioxide BUN 46 H Creatinine 2.5 H Glucose 109 H POC Glucose Lactic Acid Calcium Phosphorus Magnesium Ferritin Direct Bilirubin AST 46 H ALT 74 H Alkaline Phosphatase 180 H Lactate Dehydrogenase Total Creatine Kinase C-Reactive Protein Total Protein 4.6 L Albumin 2.0 L Triglycerides Arterial Blood Glucose Arterial Blood Ionized Calcium Urine Creatinine Urine Chloride Vancomycin Trough Coronavirus (PCR) Crossmatch Chest x-ray: pending Allied health notes reviewed: nursing
[2020-07-24] MEDS ORDERED: SODIUM CHLORIDE 0.9% 250ML 250 ML IV ONE (14:11)
--- NOTE | 2020-07-24 15:01 | Progress Note ---
Assessment and Plan Assessment and plan: -S/p vasopressor support (CCM and ID consulted, appreciate recommendations) -S/p dexamethasone and remdesivir therapy, contact/droplet isolation, vitamin C/vitamin D/zinc, anticoagulation per protocol, trend inflammatory markers -Wean mechanical ventilation as tolerated, VAP bundle -HD per nephrology -Transfuse for hemaglobin less than 7, s/p 9 units PRBC during stay -Nephrology, ID, heme-onc, GI , cardiology consulted,appreciate recommendations -BCR-ABL mutation testing pending -Per infectious disease: Continue ampicillin. Plan to exchange out lines if pressor requirement changes -Remains on levophed -Monitor leukocytosis and fevers -Hold systemic anticoagulation in setting of severe anemia -Amiodarone for rate control -s/p debridement by Dr. Kirk, GUILLE consulted, WC per nursing -07/22 COVID-19 PCR negative, discontinued contact/droplet isolation DVT prophylaxis: GI prophylaxis, heparin subcu, SCDs to bilateral LE while in bed Disposition: ICU, ?placement ?trach/peg ?Ltach The high probability of a clinically significant, sudden or life threatening deterioration of the [multi] system(s) required my full and direct attention, intervention and personal management. The aggregate critical care time was [35] minutes. This time is in addition to time spent performing reported procedures but includes the following: [x] Data Review and interpretation [x] Patient assessment and monitoring of vital signs [x] Documentation [x] Medication orders and management History Interval history: 59-year-old white male who was admitted for pneumonia secondary to Covid with associated respiratory failure and sepsis. Severe septic shock COVID-19 pneumonia Sacral wound, stage 4 Acute metabolic encephalopathy Acute hypoxic respiratory failure Enterococcus bacteremia Pneumomediastinum Acute kidney injury likely secondary to acute tubular necrosis which progressed to hemodialysis SVT/proximal atrial fibrillation Elevated LFTs Anemia likely due to severe sepsis had declining renal function Morbid obesity Leukocytosis Hyperkalemia Hypocalcemia Hypoalbuminemia 06/18: Patient got intubated overnight. Patient was placed on BiPAP to maintain oxygenation with 100% FiO2 but apparently he found to take off his argueta which made his oxygen saturation go down at 60s/50s and patient was found altered mental status. Code met was called immediately. Patient was transferred to ICU and intubated, patient currently on 2 pressors, intubated with 100% FiO2, renal function noted to be decline, nephrology consulted. Discussed with [facility] physician Dr. Thompson and requested call back on Saturday. Poor prognosis, continue to monitor with aggressive supportive care. Also called family/ to update clinical status. 06/19: Repeat COVID test was positive. cont cefepime, remdesivir per ID recommendation. follow inflammatory markers, cbc, bmp. placed on heparin drip for atrial fib 06/20: Remains on mechanical ventilation, on 2 pressors, on heparin drip. discussed with and daughter by phone. Renal function declining. cont supportive care for now. 06/21: Renal function cont to decline, urine outpt sig decreased. started on lasix 80mg BID, plan to follow urine output, if no improvement patient need to start on HD. called and daughter today. updated all clinical details 06/22: Renal function continues to decline with uremia and hyperkalemia. Will need to proceed with hemodialysis. Nephrology discussed with the family and they agrees for the hemodialysis. Patient remains on pressor support and mechanical ventilation. Vas-Cath placed today by vascular started on hemodialysis today. 06/23: 2nd round of HD today, remains on 2 pressors. per RN not tolerating TF, has no record of BM since 06/18. start on stool softner. follow cbc/bmp. updated family ( and daughter) by phone -all question answered to best of my knowledge and to their satisfaction. Patient remains critically ill with a very poor prognosis. 06/24: Continue supportive care, Very poor prognosis, Major Account Representative to discuss with family in am due to the futility of the condition. 06/25/2020 continue supportive care very poor prognosis 06/26/2020 continue supportive care very poor prognosis family updated 06/27/2020 continue supportive care and weaning if possible 06/28/2020 continue supportive care, talk with at length 06/29: Resumed care. K level persistently high. give one dose of bicarbonate, plan for HD today, recheck k after HD. updated family by phone 06/30: updated family by phone. Patient remains on amiodarone drip and vaso pressin. Getting HD at the bedside. Tolerating tube feeding at low rate. 07/01: Hb dropped to 6.4 today, transfuse one unit PRBC. patient is off pressor today, remains on amioderone. cont to monitor 07/02: Called patient and updated clinical details. Patient remains critically ill, still intubated. Patient's oxygen requirement and PEEP pressure has went down. Continue weaning protocol per critical care recommendation. Patient remains off pressor. Continue to wean off from amiodarone and plan to rate control with p.o. medications. Tolerating tube feeding. H&H stable today. Order for stool for occult blood. Monitor H&H and BMP. Continue to follow clinically 07/03: discussed with [facility] physician today. Patient back on 100percent Fio2 since last night. planned for emergent Hd today. spiked fever, start IV Cefepime + Vancomycin renally dosed. Restarted Levophed today, remains on amiodarone drip. Patient family was updated by critical care attending today. 07/04: Patient has hemodialysis yesterday and also plan for today for volume overload and pulmonary edema. Patient currently on 80% FiO2. Remains on Levophed and amiodarone. Hemoglobin dropped to 6.7 without any evidence of active bleeding. LFTs remain stable. Repeat Covid test on 06/30 and 07/03 remains positive. Will transfuse another unit of packed RBC today. Called family for update -explained family that patient is critically ill with very poor prognosis. 07/05: Patient on 70% FiO2 with PEEP of 14. h/h stable after transfusion. hyperkalemia improved, cont sodiumbicarbonate pill with TF. follow BMP. off levophed today, remains on amioderone. poor prognosis. 07/06: Patient remains on amiodarone drip, maintaining BP without any pressor. FiO2 requirement trended down to 60% with PEEP of 14. Continue to follow clinically. Plan to wean off amiodarone drip as tolerated. Wean off from sedation as tolerated. Updated family. Patient remains critically ill with poor prognosis. 07/07: Called family for update. Off amiodarone drip today, patient also off pressor. FiO2 requirement trended up again to 80-100%. Continue to provide supportive care, monitor clinically. Having difficulty to wean off from the vent support. Patient is persistently positive for COVID-19 and COVID-19 antibody is nonreactive. Patient remains critically ill with very poor prognosis. 07/08: Continue supportive care. Physics Technical Officer director e learning and integrated marketing intern input noted. Prognosis remains guarded to poor. Management per team. Critical care time 35-minute 07/09/20 patient is tachycardic. Heart rate 121. Hemoglobin 7.3. Patient is having hemodialysis. Continue supportive care. Patient having difficulty to wean off from the vent support. Prognosis is poor. Nephrology and cardiology follow-up. Recheck CBC BMP in the morning. Continue current management. 07/10/20 patient seen and examined, remains on full ventilator patient is doing better. Patient is off pressor. heart rate 123. Hemoglobin 6.8 and hematocrit 20.7. WBC is 18.1. Continue supportive care. Patient having difficulty to wean off from the vent support. We will started on Zosyn 4.5 g IV every 8 hours. Will transfuse 1 unit of packed red blood cell. Prognosis is poor. Nephrology and cardiology follow up. Recheck CBC BMP in the morning 07/11: remains off vasopressor, h/h appropriately responded to 1 unit PRBC. HD today. Remain on MV with fiO2 at 70%. peep 10. No acute events reported overnight. 07/12: Patient remains in atrial fibrillation on the sawdust machine operator, vasopressor support with Levophed and vasopressin, sedated with fentanyl and propofol. Vent settings: CMV 500/25/14/0.60. Patient remains hypercarbic on ABG 07/13: Patient remains on vasopressin, fentanyl and propofol with rectal tube in place. This morning some examination patient was on assist control 25/500/14/0.60. Patient received hemodialysis today. No acute events reported overnight. 07/14: Remains on vasopressin, fentanyl and propofol with tube in place. Rectal tube in place with noted blood clots, GI consulted, on 07/13 H/H dropped from 8.7/27 to 7.4/22 and anticoagulation discontinued. This morning I spoke to his who still wishes for the patient to remain a full code despite update with continued use of vasopressor (vasopressin), current ventilatory support (CMV 500/25/14/0.60) and recent development of rectal bleeding. Patient's family requests an update from [facility] and GI. Cardio changed amio from PO to IV given elevated HR 5: Today the patient received a total of 5 units of PRBC and is still having bleeding through his rectal tube. CTA abdomen/pelvis is pending, patient remains on Levophed, fentanyl, propofol, vasopressin and received hemodialysis today. He was also hyperkalemic today to 6 and he received insulin and D50. Extensive conversation with family conducted by CCM and hospitalist and his and 2 daughters did visit him today at the bedside. 07/16: Continues with full ventilatory support. FMS still inplace with some loose bloody stool. Still on multiple pressors, Bilateral swollen and generalized anascara. Monitor H/H and transfuse as needed. Monitor K level. Discussed with family at bedside yesterday. 07/17: Continue supportive care, transfusion blood possible in am with HD, c ontinue abx, very poor prognosis, blood pressure still labile. Discussed with nurse at bedside 07/18: CTA abdomen/pelvis completed, antibiotics changed to Zosyn per infectious disease, remains on mechanical ventilation 450/25/12/0.55 continue amiodarone drip for 24 more hours, blood culture grew Enterococcus. Remains sedated on propofol and fentanyl. Not on vasopressor support today 07/19: No acute events reported overnight, remains sedated with fentanyl and propofol and off vasopressor therapy today. 07/20: s/p debridement with surgery today, remains on fentanyl, propofol, Levophed and current vent settings 450/25/10/0.45. Patient will be transferred to a bariatric bed once available. 07/21: Continue current management, wean ventilator as tolerated, IV antibiotics deescalated to ampicillin. Per infectious disease no need to exchange/remove lines unless repeat blood cultures turn positive. The time my examination patient was sedated on fentanyl and propofol and remains off vasopressor support. 07/22: At the time my examination patient is sedated on fentanyl and propofol and remains off vasopressor support, repeat COVID-19 PCR negative. Patient remains on ampicillin. H/H remained stable and GI has signed off. Mechanical ventilation weaning as tolerated. 07/23. He remains sedated on fentanyl and propofol. On mechanical ventilation. On levophed. repeat COVID-19 PCR negative. Patient remains on ampicillin. H/H remained stable and GI has signed off. 07/24. He remains sedated and on mechanical ventilation. On levophed. repeat COVID-19 PCR negative. On ampicillin. ID recs appreciated. Labs reviewed Hospitalist Physical - Physical exam Narrative exam: VITAL SIGNS: Reviewed. GENERAL: Intubated HEAD: No signs of head trauma. MOUTH: Oropharynx is normal. NECK: No adenopathy, no JVD. CHEST: Chest with diminished breath sounds bilaterally. No wheezes, rales, or rhonchi. CARDIAC: normal S1 and S2, without murmurs, gallops, or rubs. ABDOMEN: Soft, non tender and non distended. No rebound or guarding, and no masses palpated. Bowel Sounds normal. MUSCULOSKELETAL: No edema NEUROLOGIC EXAM: Intubated SKIN: No obvious lesions - Constitutional Vitals: Temp Pulse Resp BP Pulse Ox 98.6 F 122 H 18 95/53 96 07/24/20 08:00 07/24/20 12:10 07/24/20 12:10 07/24/20 12:10 07/24/20 12:10 HEART Score - HEART Score Troponin: Troponin T < 0.010 ng/mL (0.00-0.029) 06/17/20 12:33 Results - Labs CBC & Chem 7: 07/24/20 06:40 07/24/20 06:40 Labs: Laboratory Last Values WBC 31.4 K/mm3 (4.5-11.0) H 07/24/20 06:40 RBC 2.37 M/mm3 (3.65-5.03) L 07/24/20 06:40 Hgb 7.2 gm/dl (11.8-15.2) L 07/24/20 06:40 Hct 21.7 % (35.5-45.6) L 07/24/20 06:40 MCV 92 fl (84-94) 07/24/20 06:40 MCH 30 pg (28-32) 07/24/20 06:40 MCHC 33 % (32-34) 07/24/20 06:40 RDW 17.0 % (13.2-15.2) H 07/24/20 06:40 Plt Count 230 K/mm3 (140-440) 07/24/20 06:40 Lymph % (Auto) 5.6 % (13.4-35.0) L 07/12/20 03:40 [place] % (Auto) 7.4 % (0.0-7.3) H 07/12/20 03:40 Eos % (Auto) 2.8 % (0.0-4.3) 07/12/20 03:40 Baso % (Auto) 0.3 % (0.0-1.8) 07/12/20 03:40 Lymph # (Auto) 1.4 K/mm3 (1.2-5.4) 07/12/20 03:40 [place] # (Auto) 1.8 K/mm3 (0.0-0.8) H 07/12/20 03:40 Eos # (Auto) 0.7 K/mm3 (0.0-0.4) H 07/12/20 03:40 Baso # (Auto) 0.1 K/mm3 (0.0-0.1) 07/12/20 03:40 Add Manual Diff Complete 07/24/20 06:40 Total Counted 100 07/24/20 06:40 Seg Neutrophils % Rn Homecare 07/17/20 15:25 Seg Neuts % (Manual) 85.0 % (40.0-70.0) H 07/24/20 06:40 Band Neutrophils % 3.0 % 07/24/20 06:40 Lymphocytes % (Manual) 6.0 % (13.4-35.0) L 07/24/20 06:40 Reactive Lymphs % (Man) 1.0 % 06/23/20 04:00 Monocytes % (Manual) 3.0 % (0.0-7.3) 07/24/20 06:40 Eosinophils % (Manual) 1.0 % (0.0-4.3) 07/24/20 06:40 Basophils % (Manual) 1.0 % (0.0-1.8) 07/24/20 06:40 Metamyelocytes % 1.0 % 07/24/20 06:40 Myelocytes % 0 % 07/17/20 15:25 Promyelocytes % 0 % 07/17/20 15:25 Nucleated RBC % Not Reportable 07/24/20 06:40 Seg Neutrophils # 20.4 K/mm3 (1.8-7.7) H 07/12/20 03:40 Seg Neutrophils # Man 26.7 K/mm3 (1.8-7.7) H 07/24/20 06:40 Band Neutrophils # 0.9 K/mm3 07/24/20 06:40 Lymphocytes # (Manual) 1.9 K/mm3 (1.2-5.4) 07/24/20 06:40 Abs React Lymphs (Man) 0.0 K/mm3 07/24/20 06:40 Monocytes # (Manual) 0.9 K/mm3 (0.0-0.8) H 07/24/20 06:40 Eosinophils # (Manual) 0.3 K/mm3 (0.0-0.4) 07/24/20 06:40 Basophils # (Manual) 0.3 K/mm3 (0.0-0.1) H 07/24/20 06:40 Metamyelocytes # 0.3 K/mm3 07/24/20 06:40 Myelocytes # 0.0 K/mm3 07/24/20 06:40 Promyelocytes # 0.0 K/mm3 07/24/20 06:40 Blast Cells # 0.0 K/mm3 07/24/20 06:40 Pathologist Review 07/17/20 15:25 WBC Morphology Not Reportable 07/24/20 06:40 Hypersegmented Neuts Not Reportable 07/24/20 06:40 Hyposegmented Neuts Not Reportable 07/24/20 06:40 Hypogranular Neuts Not Reportable 07/24/20 06:40 Smudge Cells Not Reportable 07/24/20 06:40 Toxic Granulation Not Reportable 07/24/20 06:40 Toxic Vacuolation Not Reportable 07/24/20 06:40 Dohle Bodies Not Reportable 07/24/20 06:40 Pelger-Huet Anomaly Not Reportable 07/24/20 06:40 Carlito Rods Not Reportable 07/24/20 06:40 Platelet Estimate Consistent w auto 07/24/20 06:40 Clumped Platelets Not Reportable 07/24/20 06:40 Plt Clumps, EDTA Not Reportable 07/24/20 06:40 Large Platelets Not Reportable 07/24/20 06:40 Giant Platelets Not Reportable 07/24/20 06:40 Platelet Satelliting Not Reportable 07/24/20 06:40 Plt Morphology Comment Not Reportable 07/24/20 06:40 RBC Morphology Not Reportable 07/24/20 06:40 Dimorphic RBCs Not Reportable 07/24/20 06:40 Polychromasia Not Reportable 07/24/20 06:40 Hypochromasia Not Reportable 07/24/20 06:40 Poikilocytosis Not Reportable 07/24/20 06:40 Anisocytosis Few 03/14/21 06:40 Microcytosis Not Reportable 07/24/20 06:40 Macrocytosis Not Reportable 07/24/20 06:40 Spherocytes Not Reportable 07/24/20 06:40 Pappenheimer Bodies Not Reportable 07/24/20 06:40 Sickle Cells Not Reportable 07/24/20 06:40 Target Cells Not Reportable 07/24/20 06:40 Tear Drop Cells Not Reportable 07/24/20 06:40 Ovalocytes Not Reportable 07/24/20 06:40 Stomatocytes Rare 07/10/20 03:55 Helmet Cells Not Reportable 07/24/20 06:40 Brothers-Be[place]umont Bodies Not Reportable 07/24/20 06:40 [place] Rings Not Reportable 07/24/20 06:40 [place] Cells Not Reportable 07/24/20 06:40 Bite Cells Not Reportable 07/24/20 06:40 Crenated Cell Not Reportable 07/24/20 06:40 Elliptocytes Not Reportable 07/24/20 06:40 Acanthocytes (Spur) Not Reportable 07/24/20 06:40 Rouleaux Not Reportable 07/24/20 06:40 Hemoglobin C Crystals Not Reportable 07/24/20 06:40 Schistocytes Not Reportable 07/24/20 06:40 Malaria parasites Not Reportable 07/24/20 06:40 Victoriano Bodies Not Reportable 07/24/20 06:40 Hem Pathologist Commnt No 07/24/20 06:40 PT 18.2 Sec. (12.2-14.9) H 07/17/20 15:25 INR 1.52 (0.87-1.13) H 07/17/20 15:25 APTT 28.5 Sec. (24.2-36.6) 06/26/20 05:47 Fibrinogen 419 mg/dl (211-480) 07/15/20 08:21 D-Dimer 6608.00 ng/mlDDU (0-234) H 07/03/20 14:50 Heparin Anti-Xa Level < 0.10 U.I./ml (0.3-0.7) L 06/26/20 01:30 ABG pH 7.355 (7.320-7.450) 07/23/20 04:56 POC ABG pCO2 46.9 mmHg (32.0-48.0) 07/23/20 04:56 ABG pCO2 56.4 mm Hg 07/05/20 04:30 POC ABG pO2 75.7 mmHg (83-108) L 07/23/20 04:56 ABG pO2 151.9 mm Hg (80.0-90.0) H 07/05/20 04:30 POC ABG HCO3 25.6 07/23/20 04:56 ABG HCO3 26.8 mmol/L (20.0-26.0) H 07/05/20 04:30 ABG O2 Saturation 94.8 (0-100) 07/23/20 04:56 ABG O2 Content 5.0 (0.0-44) 07/04/20 05:20 POC ABG Base Excess -0.1 07/23/20 04:56 ABG Base Excess 0.1 mmol/L (-2.0-3.0) 07/05/20 04:30 ABG Hemoglobin 9.3 (12.0-17.5) L 07/23/20 04:56 ABG Oxyhemoglobin 91.7 (94-98) L 07/22/20 04:11 ABG Carboxyhemoglobin 1.7 % (0.0-5.0) 07/05/20 04:30 ABG Methemoglobin 0.3 (0.0-1.5) 07/22/20 04:11 ABG Sodium 139.7 mmol/L (136.0-145.0) 07/23/20 04:56 ABG Potassium 3.1 mmol/L (3.40-4.50) L 07/23/20 04:56 ABG Chloride 108.0 mmol/L (98-107) H 07/23/20 04:56 ABG Glucose 101 mg/dL (65-95) H 07/23/20 04:56 Oxyhemoglobin 96.5 % (95.0-99.0) 07/05/20 04:30 Carboxyhemoglobin 1.3 (0.5-1.5) 07/22/20 04:11 FiO2 50 07/20/20 06:00 FiO2 % 40 07/23/20 04:56 Sodium 143 mmol/L (137-145) 07/24/20 06:40 Potassium 3.1 mmol/L (3.6-5.0) L 07/24/20 06:40 Chloride 106.1 mmol/L (98-107) 07/24/20 06:40 Carbon Dioxide 26 mmol/L (22-30) 07/24/20 06:40 Anion Gap 14 mmol/L 07/24/20 06:40 BUN 46 mg/dL (9-20) H 07/24/20 06:40 Creatinine 2.5 mg/dL (0.8-1.3) H 07/24/20 06:40 Estimated GFR 32 ml/min 07/24/20 06:40 BUN/Creatinine Ratio 18 % 07/24/20 06:40 Glucose 109 mg/dL (75-100) H 07/24/20 06:40 POC Glucose 91 mg/dL (70-105) 07/24/20 11:52 Lactic Acid 0.90 mmol/L (0.7-2.0) 07/23/20 Unknown Calcium 8.9 mg/dL (8.4-10.2) 07/24/20 06:40 Phosphorus 9.40 mg/dL (2.5-4.5) H 06/30/20 03:50 Magnesium 2.70 mg/dL (1.7-2.3) H 06/18/20 20:33 Ferritin 1171.0 ng/mL (30.0-300.0) H 07/03/20 14:50 Total Bilirubin 0.20 mg/dL (0.1-1.2) 07/24/20 06:40 Direct Bilirubin 0.5 mg/dL (0-0.2) H 07/05/20 08:21 Indirect Bilirubin 0.1 mg/dL 07/05/20 08:21 AST 46 units/L (5-40) H 07/24/20 06:40 ALT 74 units/L (7-56) H 07/24/20 06:40 Alkaline Phosphatase 180 units/L (35-129) H 07/24/20 06:40 Lactate Dehydrogenase 525 units/L (91-180) H 07/03/20 14:50 Total Creatine Kinase 618 units/L (55-170) H 06/29/20 Unknown Troponin T < 0.010 ng/mL (0.00-0.029) 06/17/20 12:33 C-Reactive Protein 31.50 mg/dL (0.00-1.30) H 07/03/20 14:50 Total Protein 4.6 g/dL (6.3-8.2) L 07/24/20 06:40 Albumin 2.0 g/dL (3.9-5) L 07/24/20 06:40 Albumin/Globulin Ratio 0.8 % 07/24/20 06:40 Triglycerides 197 mg/dL (2-149) H 07/22/20 16:00 Procalcitonin 6.05 ng/mL (<0.15) 07/13/20 06:59 Arterial Blood Glucose 101 mg/dL (65-95) H 07/23/20 04:56 Arterial Blood Ionized Calcium 5.3 mg/dL (4.6-5.3) 07/23/20 04:56 Urine Color Yellow (Yellow) 06/17/20 15:57 Urine Turbidity Clear (Clear) 06/17/20 15:57 Urine pH 6.0 (5.0-7.0) 06/17/20 15:57 Ur Specific [place] 1.019 (1.003-1.030) 06/17/20 15:57 Urine Protein 30 mg/dl mg/dL (Negative) 06/17/20 15:57 Urine Glucose (UA) Neg mg/dL (Negative) 06/17/20 15:57 Urine Ketones Neg mg/dL (Negative) 06/17/20 15:57 Urine Blood Sm (Negative) 06/17/20 15:57 Urine Nitrite Neg (Negative) 06/17/20 15:57 Ur Reducing Substances Not Reportable 06/17/20 15:57 Urine Bilirubin Neg (Negative) 06/17/20 15:57 Urine Ictotest Not Reportable 06/17/20 15:57 Urine Urobilinogen < 2.0 mg/dL (<2.0) 06/17/20 15:57 Ur Leukocyte Esterase Neg (Negative) 06/17/20 15:57 Urine WBC (Auto) 1.0 /HPF (0.0-6.0) 06/17/20 15:57 Urine RBC (Auto) 2.0 /HPF (0.0-6.0) 06/17/20 15:57 Urine Mucus Few /HPF 06/17/20 15:57 Urine Creatinine 192.4 mg/dL (0.1-20.0) H 06/18/20 15:00 Urine Sodium 28 mmol/L 06/18/20 15:00 Urine Chloride 31.1 mmolL (110-250) L 06/18/20 15:00 Nasal Screen MRSA (PCR) Negative (Negative) 06/19/20 10:38 Vancomycin Trough 22.7 ug/mL (5.0-20.0) H 06/20/20 08:25 Random Vancomycin 13.5 ug/mL (0-40.0) 07/16/20 07:17 Coronavirus (PCR) Negative (Negative) 07/22/20 Unknown Hepatitis A IgM Ab Non-reactive (NonReactive) 06/22/20 17:00 Hep Bs Antigen Non-reactive (Negative) 06/22/20 17:00 Hep B Core IgM Ab Non-reactive (NonReactive) 06/22/20 17:00 Hepatitis C Antibody Non-reactive (NonReactive) 06/22/20 17:00 SARS-CoV-2 IgG Ab Nonreactive (NonReactive) 07/04/20 05:20 Blood Type A POSITIVE 07/17/20 Unknown Antibody Screen Negative 07/17/20 Unknown Crossmatch See Detail 07/17/20 Unknown Microbiology: Microbiology 07/18/20 18:20 Peripheral/Venous Blood Culture - Final NO GROWTH AFTER 5 DAYS 07/18/20 18:05 Peripheral/Venous Blood Culture - Final NO GROWTH AFTER 5 DAYS - Diagnostic Impressions Diagnostic Impressions: Echocardiogram 06/29/20 06:00 Transthoracic Echocardiogram Indication: A-fib BP: 105/47 HR: 99 Conclusions *The study is technically very difficult and limited due to poor acoustic windows. *Global left ventricular wall motion and contractility are within normal limits. *The estimated ejection fraction is 55-60%. *There is no pericardial effusion. Findings Procedure Info: The study quality is technically difficult. The study is technically limited due to poor acoustic windows. Left Ventricle: Global left ventricular wall motion and contractility are within normal limits. Global left ventricular systolic function is normal. The estimated ejection fraction is 55-60%. Left Atrium: The left atrium is not well visualized. Right Ventricle: The right ventricle is not well visualized. Right Atrium: The right atrium is not well visualized. Aortic Valve: The aortic valve is not well visualized. Mitral Valve: The mitral valve is not well visualized. Tricuspid Valve: The tricuspid valve is not well visualized. Pulmonic Valve: The pulmonic valve is not well visualized. Pericardium: There is no pericardial effusion. Venous: There is no change in the dimension of the inferior vena cava with respiration consistent with markedly increased right atrial pressure. Newell/IV: Voiding Method Incontinent Active Medications - Current Medications Current Medications: Generic Name Dose Route Start Last Admin Trade Name Freq PRN Reason Stop Dose Admin Acetaminophen 650 mg 06/17/20 14:17 07/03/20 09:16 Acetaminophen 325 Mg Tab PO 650 mg Q4H PRN Administration Pain MILD(1-3)/Fever >100.5/ROBERTS Albuterol 2.5 mg 07/19/20 12:15 Albuterol 2.5 Mg/3 Ml Nebu IH Q6HRT PRN Shortness Of Breath Amiodarone HCl 200 mg 07/19/20 14:00 07/24/20 10:30 Amiodarone 200 Mg Tab PO 200 mg BID CONNOR Administration Lipase/Protease/Amylase 1 each 06/19/20 12:15 Lipase 10,500/Protease 25,000/Amylase 43,750 (Units) Dr Cap FEEDTUBE PRN PRN For Clogged Feeding Tube Ascorbic Acid 250 mg 06/17/20 22:00 07/24/20 10:36 Ascorbic Acid 250 Mg Tab PO 250 mg BID CONNOR Administration Cholecalciferol 1,000 unit 06/18/20 10:00 07/24/20 10:30 Cholecalciferol (Vit D3) 1000 Unit (25 Mcg) Tab PO 1,000 unit DAILY CONNOR Administration Docusate Sodium 100 mg 06/23/20 15:00 07/24/20 10:33 Docusate Sodium 100 Mg/10 Ml Oral Liqd FEEDTUBE Not Given BID CONNOR Fentanyl 50 mcg 06/18/20 01:02 07/09/20 00:20 Fentanyl 100 Mcg/2 Ml Inj IV 50 mcg Q10MIN PRN Administration ANALGESIA Heparin Sodium (Porcine) 5,000 unit 06/22/20 12:53 06/30/20 13:36 Heparin 10,000 Unit/1 Ml Vial IV 5,000 unit PAM PRN Administration hemodialysis Hydrophilic Ointment 1 applic 06/17/20 22:52 07/12/20 20:22 Lip Therapy Vaseline TP 1 applic Q2HR PRN Administration Dry Lips Propofol 1,000 mg in 100 mls @ 3.402 mls/hr 06/18/20 01:00 07/24/20 11:29 Diprivan 10 Mg/Ml IV 20 mcg/kg/min TITR CONNOR 13.608 mls/hr Administration Protocol 5 MCG/KG/MIN Fentanyl Citrate 2,000 mcg in 100 mls @ 8 mls/hr 06/18/20 02:00 07/24/20 13:32 Fentanyl Drip Premix IV 2 mcg/kg/hr TITR CONNOR 16 mls/hr Administration Protocol 1 MCG/KG/HR Norepinephrine 4 mg in 250 mls @ 7.5 mls/hr 07/08/20 02:06 07/24/20 10:23 Levophed Drip 4 Mg/Ns 250 Ml IV 4 mcg/min TITR CONNOR 15 mls/hr Titration Protocol 2 MCG/MIN Vasopressin 20 unit/ Sodium 101 mls @ 9.09 mls/hr 07/11/20 11:00 07/18/20 15:36 Chloride IV 0 units/min TITR CONNOR 0 mls/hr Titration Protocol 0.03 UNITS/MIN Sodium Chloride 100 mls @ 999 mls/hr 07/19/20 08:22 Nacl 0.9% IV PAM PRN Hypotension Ampicillin Sodium 2 gm in 100 mls @ 100 mls/hr 07/21/20 12:00 07/24/20 13:11 Ampicillin/Ns 2 Gm/100 Ml IV 08/02/20 12:59 100 mls/hr Q12H CONNOR Administration Protocol Insulin Human Regular 0 units 06/18/20 12:00 07/24/20 13:35 Insulin Regular, Human 100 Units/1 Ml SUB-Q Not Given Q6HR ON LICENSE OF [facility] Protocol Multi-Ingred Cream/Lotion/Oil/Oint 1 applic 06/17/20 22:52 07/12/20 20:22 Mineral Oil/Petrolatum, White Ophth Oint 3.5 Gm OU 1 applic Q4HR PRN Administration Dry Eye(s) Ondansetron HCl 4 mg 06/17/20 14:17 Ondansetron 4 Mg/2 Ml Inj IV Q8H PRN Nausea And Vomiting Pantoprazole Sodium 40 mg 07/16/20 22:00 07/24/20 10:31 Pantoprazole 40 Mg Inj IV 40 mg BID CONNOR Administration Polyethylene Glycol 17 gm 06/23/20 15:00 07/24/20 10:33 Polyethylene Glycol 3350 17 Gm Powder PO Not Given QDAY CONNOR Quetiapine Fumarate 200 mg 06/28/20 13:00 07/24/20 10:30 Quetiapine 200 Mg Tab PO 200 mg BID CONNOR Administration Simple Syrup 15 ml 06/19/20 12:15 07/19/20 00:48 Simple Syrup 15 Ml FEEDTUBE 15 ml PRN PRN Administration Hypoglycemia Simple Syrup 30 ml 06/19/20 12:15 07/19/20 06:04 Simple Syrup 15 Ml FEEDTUBE 30 ml PRN PRN Administration Hypoglycemia Sodium Bicarbonate 325 mg 06/19/20 12:15 07/11/20 20:00 Sodium Bicarbonate 325 Mg Tab FEEDTUBE 325 mg PRN PRN Administration For Clogged Feeding Tube Sodium Bicarbonate 650 mg 07/04/20 10:00 07/24/20 13:10 Sodium Bicarbonate 650 Mg Tab PO 650 mg TID CONNOR Administration Sodium Chloride 10 ml 06/17/20 22:00 07/24/20 10:30 Sodium Chloride 0.9% 10 Ml Flush Syringe IV 10 ml BID CONNOR Administration Sodium Chloride 10 ml 06/17/20 14:17 Sodium Chloride 0.9% 10 Ml Flush Syringe IV PRN PRN LINE FLUSH Sodium Hypochlorite 1 applic 07/20/20 10:00 07/24/20 10:32 Sodium Hypochlorite, Dakin's 1/2 Strength (0.25%) 473 Ml Topical Soln TP 1 applicatio BID CONNOR Administration Sodium Polystyrene Sulfonate 15 gm 07/03/20 11:19 07/05/20 10:36 Sodium Polystyrene 15 Gm/60 Ml Oral Liqd PO 15 gm Q6HR PRN Administration Hyperkalemia Zinc Sulfate 220 mg 06/17/20 22:00 07/24/20 10:31 Zinc Sulfate 220 Mg Cap PO 220 mg BID CONNOR Administration Nutrition/Malnutrition Assess - Dietary Evaluation Nutrition/Malnutrition Findings: Nutrition Notes Start: 06/18/20 10:28 Freq: Status: Active Protocol: Document 07/22/20 11:37 AL (Rec: 07/22/20 11:42 AL [id number]) Co-Sign 07/22/20 11:37 CW Nutrition Notes Initial or Follow up Reassessment Current Diagnosis Acute Kidney Injury,Sepsis, Respiratory Failure Other Pertinent Diagnosis COVID-19 (+), pneu Current Diet Nepro 1.8 at 50 ml/hr Labs/Tests No new labs Pertinent Medications Colace Vitamin D3 Miralax Propofol 6.8 ml/hr (180 kcal) Height 6 ft Weight 153.9 kg [place] Body Weight (kg) 80.90 BMI 46.0 Weight Status Morbidly Obese Subjective/Other Information F/U for stable TF. Pt tolerates TF at 50 ml/hr (goal rate). Pt still on the vent. Pt has new necrotic sacral pressure ulcer. Percent of energy/protein needs met: 89%/48% Burn Absent Trauma Absent GI Symptoms Other Skin Integrity/Comment Unstageable Sacral Pressure Ulcer Current % PO Negligible Minimum of two criteria No physical signs of malnutrition #3 Nutrition Diagnosis Increased nutrient needs ( specify in comment below) Comments: Protein Etiology need for wound healing As Evidenced by Signs and Symptoms Necrotic sacral pressure ulcer #2 Nutrition Diagnosis Overweight/obesity Diagnosis Progress(for reassessment Continues documentation) #1 Nutrition Diagnosis Inadequate oral intake Diagnosis Progress(for reassessment Continues documentation) Is patient on ventilator? Yes Is Patient Ambulatory and/or Out of Bed No REE-([place]-confined to bed) 2856.504 Kcal/Kg value to use for calculation 14 Approximate Energy Requirements Using 2155 kcal/Kg Calculation Used for Recommendations Kcal/kg Additional Notes Protein needs up to >2 g/kg IBW: 162 g Fluid needs: 1,000 ml + output Nutrition Intervention Change Diet Order: TF Nutrition Support: Nepro 1.8 at 50 ml/hr Flush 215 ml q4h Kcal 2,160 Protein (gm) 97 Fluid (mL) 872 Goal #1 Tolerate TF at goal rate Goal #2 Meet energy and protein needs as best as possible. Goal #3 Wound healing Anticipated Discharge Needs: Unable to determine at the time. Follow-Up By: 07/26/20 Additional Comments F/U for TF tolerance, wound, and vent status
--- NOTE | 2020-07-24 18:05 | Progress Note ---
Assessment and Plan - Patient Problems (1) Pressure ulcer of sacral region, stage 4 Current Visit: Yes Status: Acute Plan to address problem: 1) NPO after MN 2) PEG & tracheostomy over the next 48 hours pending OR availability Subjective Date of service: 07/24/20 Patient Reports: Positive: no new complaints (New consult for PEG & tracheostomy.) Objective Vital Signs - 12hr 07/24/20 07/24/20 07/24/20 06:05 06:10 06:15 Temperature Pulse Rate 121 H 126 H 126 H Pulse Rate [ From Monitor] Respiratory 22 19 24 Rate Blood Pressure 119/63 110/59 110/59 O2 Sat by Pulse Oximetry 07/24/20 07/24/20 07/24/20 06:20 06:25 06:30 Temperature Pulse Rate 120 H 127 H 127 H Pulse Rate [ From Monitor] Respiratory 19 20 23 Rate Blood Pressure 118/58 118/58 129/70 O2 Sat by Pulse Oximetry 07/24/20 07/24/20 07/24/20 06:35 06:40 06:45 Temperature Pulse Rate 127 H 128 H 129 H Pulse Rate [ From Monitor] Respiratory 25 H 26 H 23 Rate Blood Pressure 129/70 108/60 108/60 O2 Sat by Pulse 98 Oximetry 07/24/20 07/24/20 07/24/20 06:50 06:55 07:00 Temperature Pulse Rate 129 H 122 H 126 H Pulse Rate [ From Monitor] Respiratory 18 22 19 Rate Blood Pressure 105/66 105/66 96/72 O2 Sat by Pulse Oximetry 07/24/20 07/24/20 07/24/20 07:05 07:10 07:15 Temperature Pulse Rate 121 H 111 H 121 H Pulse Rate [ From Monitor] Respiratory 19 26 H 21 Rate Blood Pressure 96/72 118/69 118/69 O2 Sat by Pulse Oximetry 07/24/20 07/24/20 07/24/20 07:21 07:25 07:30 Temperature Pulse Rate 116 H 121 H 127 H Pulse Rate [ From Monitor] Respiratory 25 H 20 24 Rate Blood Pressure 129/71 129/71 129/71 O2 Sat by Pulse 99 99 99 Oximetry 07/24/20 07/24/20 07/24/20 07:36 07:40 07:46 Temperature Pulse Rate 112 H 127 H 111 H Pulse Rate [ From Monitor] Respiratory 18 17 19 Rate Blood Pressure 130/66 130/66 O2 Sat by Pulse 99 94 100 Oximetry 07/24/20 07/24/20 07/24/20 07:50 07:56 08:00 Temperature 98.6 F Pulse Rate 116 H 128 H 111 H Pulse Rate [ 125 H From Monitor] Respiratory 20 22 31 H Rate Blood Pressure 121/70 142/67 131/63 O2 Sat by Pulse 100 100 98 Oximetry 07/24/20 07/24/20 07/24/20 08:06 08:10 08:16 Temperature Pulse Rate 121 H 112 H 118 H Pulse Rate [ From Monitor] Respiratory 19 21 21 Rate Blood Pressure 131/63 133/64 133/64 O2 Sat by Pulse 100 100 100 Oximetry 07/24/20 07/24/20 07/24/20 08:20 08:26 08:30 Temperature Pulse Rate 112 H 110 H 111 H Pulse Rate [ From Monitor] Respiratory 25 H 18 19 Rate Blood Pressure 120/66 120/66 127/63 O2 Sat by Pulse 99 99 99 Oximetry 07/24/20 07/24/20 07/24/20 08:36 08:40 08:46 Temperature Pulse Rate 113 H 113 H 112 H Pulse Rate [ From Monitor] Respiratory 22 21 17 Rate Blood Pressure 127/63 132/68 132/68 O2 Sat by Pulse 99 100 99 Oximetry 07/24/20 07/24/20 07/24/20 08:50 08:56 09:00 Temperature Pulse Rate 111 H 112 H 127 H Pulse Rate [ From Monitor] Respiratory 24 26 H 19 Rate Blood Pressure 120/67 120/67 131/67 O2 Sat by Pulse 99 98 97 Oximetry 07/24/20 07/24/20 07/24/20 09:06 09:10 09:16 Temperature Pulse Rate 128 H 111 H 115 H Pulse Rate [ From Monitor] Respiratory 22 22 26 H Rate Blood Pressure 131/67 129/66 129/66 O2 Sat by Pulse 98 99 98 Oximetry 07/24/20 07/24/20 07/24/20 09:20 09:26 09:30 Temperature Pulse Rate 127 H 119 H 128 H Pulse Rate [ From Monitor] Respiratory 20 19 19 Rate Blood Pressure 136/73 136/73 137/70 O2 Sat by Pulse 98 98 97 Oximetry 07/24/20 07/24/20 07/24/20 09:36 09:40 09:46 Temperature Pulse Rate 109 H 114 H 129 H Pulse Rate [ From Monitor] Respiratory 28 H 22 41 H Rate Blood Pressure 137/70 125/56 125/56 O2 Sat by Pulse 98 98 96 Oximetry 07/24/20 07/24/20 07/24/20 09:50 09:56 10:00 Temperature Pulse Rate 127 H 115 H 121 H Pulse Rate [ From Monitor] Respiratory 25 H 20 20 Rate Blood Pressure 129/66 129/66 130/67 O2 Sat by Pulse 99 98 98 Oximetry 07/24/20 07/24/20 07/24/20 10:06 10:10 10:16 Temperature Pulse Rate 128 H 122 H 127 H Pulse Rate [ From Monitor] Respiratory 14 21 18 Rate Blood Pressure 130/67 137/67 137/67 O2 Sat by Pulse 98 97 97 Oximetry 07/24/20 07/24/20 07/24/20 10:20 10:26 10:30 Temperature Pulse Rate 128 H 122 H 129 H Pulse Rate [ From Monitor] Respiratory 18 20 20 Rate Blood Pressure 133/73 133/73 128/72 O2 Sat by Pulse 98 97 96 Oximetry 07/24/20 07/24/20 07/24/20 10:36 10:40 10:46 Temperature Pulse Rate 129 H 123 H 122 H Pulse Rate [ From Monitor] Respiratory 22 23 20 Rate Blood Pressure 128/72 125/69 125/69 O2 Sat by Pulse 97 97 98 Oximetry 07/24/20 07/24/20 07/24/20 10:50 10:56 11:00 Temperature Pulse Rate 127 H 129 H 128 H Pulse Rate [ From Monitor] Respiratory 25 H 41 H 33 H Rate Blood Pressure 109/58 109/58 110/53 O2 Sat by Pulse 98 94 95 Oximetry 07/24/20 07/24/20 07/24/20 11:06 11:10 11:16 Temperature Pulse Rate 129 H 128 H 113 H Pulse Rate [ From Monitor] Respiratory 30 H 42 H 24 Rate Blood Pressure 110/53 110/55 110/55 O2 Sat by Pulse 94 93 93 Oximetry 07/24/20 07/24/20 07/24/20 11:20 11:26 11:30 Temperature Pulse Rate 124 H 122 H 123 H Pulse Rate [ From Monitor] Respiratory 24 22 22 Rate Blood Pressure 88/44 88/44 105/56 O2 Sat by Pulse 94 95 95 Oximetry 07/24/20 07/24/2007/24/21 11:36 11:40 11:46 Temperature Pulse Rate 122 H 119 H 127 H Pulse Rate [ From Monitor] Respiratory 20 23 18 Rate Blood Pressure 105/56 102/56 102/56 O2 Sat by Pulse 96 96 95 Oximetry 07/24/20 07/24/20 07/24/20 11:50 11:56 11:57 Temperature Pulse Rate 125 H 125 H 127 H Pulse Rate [ From Monitor] Respiratory 19 20 Rate Blood Pressure 92/51 92/51 104/50 O2 Sat by Pulse 96 95 96 Oximetry 07/24/20 07/24/20 07/24/20 12:00 12:06 12:10 Temperature Pulse Rate 123 H 129 H 122 H Pulse Rate [ From Monitor] Respiratory 17 19 18 Rate Blood Pressure 104/50 104/50 95/53 O2 Sat by Pulse 95 96 96 Oximetry 07/24/20 15:59 Temperature Pulse Rate 127 H Pulse Rate [ From Monitor] Respiratory Rate Blood Pressure 97/50 O2 Sat by Pulse 96 Oximetry - Labs 07/24/20 06:40 07/24/20 06:40 Diabetes panel 07/24/20 Range/Units 06:40 Sodium 143 (137-145) mmol/L Potassium 3.1 L (3.6-5.0) mmol/L Chloride 106.1 (98-107) mmol/L Carbon Dioxide 26 (22-30) mmol/L BUN 46 H (9-20) mg/dL Creatinine 2.5 H (0.8-1.3) mg/dL Glucose 109 H (75-100) mg/dL Calcium 8.9 (8.4-10.2) mg/dL AST 46 H (5-40) units/L ALT 74 H (7-56) units/L Alkaline Phosphatase 180 H (35-129) units/L Total Protein 4.6 L (6.3-8.2) g/dL Albumin 2.0 L (3.9-5) g/dL Calcium panel 07/24/20 Range/Units 06:40 Calcium 8.9 (8.4-10.2) mg/dL Albumin 2.0 L (3.9-5) g/dL Pituitary panel 07/24/20 Range/Units 06:40 Sodium 143 (137-145) mmol/L Potassium 3.1 L (3.6-5.0) mmol/L Chloride 106.1 (98-107) mmol/L Carbon Dioxide 26 (22-30) mmol/L BUN 46 H (9-20) mg/dL Creatinine 2.5 H (0.8-1.3) mg/dL Glucose 109 H (75-100) mg/dL Calcium 8.9 (8.4-10.2) mg/dL Adrenal panel 07/24/20 Range/Units 06:40 Sodium 143 (137-145) mmol/L Potassium 3.1 L (3.6-5.0) mmol/L Chloride 106.1 (98-107) mmol/L Carbon Dioxide 26 (22-30) mmol/L BUN 46 H (9-20) mg/dL Creatinine 2.5 H (0.8-1.3) mg/dL Glucose 109 H (75-100) mg/dL Calcium 8.9 (8.4-10.2) mg/dL Total Bilirubin 0.20 (0.1-1.2) mg/dL AST 46 H (5-40) units/L ALT 74 H (7-56) units/L Alkaline Phosphatase 180 H (35-129) units/L Total Protein 4.6 L (6.3-8.2) g/dL Albumin 2.0 L (3.9-5) g/dL
[2020-07-24] MEDS ORDERED: SODIUM CHLORIDE 0.9% 500 ML 500 ML IV ONE (18:23)
[2020-07-24 21:05] LABS: INR 1.21 (0.87-1.13)
[2020-07-24 21:06] LABS: Partial Thromboplastin Time 36.1 Sec. (24.2-36.6)
[2020-07-24] MEDS ORDERED: SODIUM CHLORIDE 0.9% 500 ML 500 ML ONE (23:17)
[2020-07-25] MEDS: fentaNYL DRIP Premix 2,000 MCG/100 ML BAG IV SCH ×4 (01:55→20:34)
[2020-07-25 06:30] LABS: Hematocrit 25.6 % (35.5-45.6); Hemoglobin 8.5 gm/dl (11.8-15.2); Mean Corpuscular HGB Conc 33 % (32-34); Mean Corpuscular Volume 92 fl (84-94); Platelet Count 195 K/mm3 (140-440); Red Blood Count 2.79 M/mm3 (3.65-5.03); Red Cell Distribution Width 16.1 % (13.2-15.2)
[2020-07-25] MEDS: INSULIN REGULAR, HUMAN 100 UNITS/1 ML SUB-Q SCH ×4 (06:30→17:46)
[2020-07-25 08:46] LABS: Calcium 9.2 mg/dL (8.4-10.2)
--- NOTE | 2020-07-25 09:37 | Progress Note ---
Assessment and Plan Assessment and plan: -S/p vasopressor support (CCM and ID consulted, appreciate recommendations) -S/p dexamethasone and remdesivir therapy, contact/droplet isolation, vitamin C/vitamin D/zinc, anticoagulation per protocol, trend inflammatory markers -Wean mechanical ventilation as tolerated, VAP bundle -HD per nephrology -Transfuse for hemaglobin less than 7, s/p 9 units PRBC during stay -Nephrology, ID, heme-onc, GI , cardiology consulted,appreciate recommendations -BCR-ABL mutation testing pending -Per infectious disease: Continue ampicillin. Plan to exchange out lines if pressor requirement changes -s/p levophed -Monitor leukocytosis and fevers -Hold systemic anticoagulation in setting of severe anemia -Amiodarone for rate control -s/p debridement by Dr. Kirk, WOESPERANZA consulted, WC per nursing -07/22 COVID-19 PCR negative, discontinued contact/droplet isolation DVT prophylaxis: GI prophylaxis, heparin subcu, SCDs to bilateral LE while in bed Disposition: ICU, ?placement ?trach/peg ?Ltach The high probability of a clinically significant, sudden or life threatening deterioration of the [multi] system(s) required my full and direct attention, intervention and personal management. The aggregate critical care time was [35] minutes. This time is in addition to time spent performing reported procedures but includes the following: [x] Data Review and interpretation [x] Patient assessment and monitoring of vital signs [x] Documentation [x] Medication orders and management History Interval history: 59-year-old white male who was admitted for pneumonia secondary to Covid with associated respiratory failure and sepsis. Severe septic shock COVID-19 pneumonia Sacral wound, stage 4 Acute metabolic encephalopathy Acute hypoxic respiratory failure Enterococcus bacteremia Pneumomediastinum Acute kidney injury likely secondary to acute tubular necrosis which progressed to hemodialysis SVT/proximal atrial fibrillation Elevated LFTs Anemia likely due to severe sepsis had declining renal function Morbid obesity Leukocytosis Hypoalbuminemia 06/18: Patient got intubated overnight. Patient was placed on BiPAP to maintain oxygenation with 100% FiO2 but apparently he found to take off his argueta which made his oxygen saturation go down at 60s/50s and patient was found altered mental status. Code met was called immediately. Patient was transferred to ICU and intubated, patient currently on 2 pressors, intubated with 100% FiO2, renal function noted to be decline, nephrology consulted. Discussed with [facility] Dr. Thompson and requested call back on Saturday. Poor prognosis, continue to monitor with aggressive supportive care. Also called family/ to update clinical status. 06/19: Repeat COVID test was positive. cont cefepime, remdesivir per ID recommendation. follow inflammatory markers, cbc, bmp. placed on heparin drip for atrial fib 06/20: Remains on mechanical ventilation, on 2 pressors, on heparin drip. discuss ed with and daughter by phone. Renal function declining. cont supportive care for now. 06/21: Renal function cont to decline, urine outpt sig decreased. started on lasix 80mg BID, plan to follow urine output, if no improvement patient need to start on HD. called and daughter today. updated all clinical details 06/22: Renal function continues to decline with uremia and hyperkalemia. Will need to proceed with hemodialysis. Nephrology discussed with the family and they agrees for the hemodialysis. Patient remains on pressor support and mechanical ventilation. Vas-Cath placed today by vascular started on hemodialysis today. 06/23: 2nd round of HD today, remains on 2 pressors. per RN not tolerating TF, has no record of BM since 06/18. start on stool softner. follow cbc/bmp. updated f aman ( and daughter) by phone -all question answered to best of my knowledge and to their satisfaction. Patient remains critically ill with a very poor prognosis. 06/24: Continue supportive care, Very poor prognosis, Blanket Cutter Hand to discuss with family in am due to the futility of the condition. 06/25/2020 continue supportive care very poor prognosis 06/26/2020 continue supportive care very poor prognosis family updated 06/27/2020 continue supportive care and weaning if possible 06/28/2020 continue supportive care, talk with at length 06/29: Resumed care. K level persistently high. give one dose of bicarbonate, plan for HD today, recheck k after HD. updated family by phone 06/30: updated family by phone. Patient remains on amiodarone drip and vasopressin. Getting HD at the bedside. Tolerating tube feeding at low rate. 07/01: Hb dropped to 6.4 today, transfuse one unit PRBC. patient is off pressor today, remains on amioderone. cont to monitor 07/02: Called patient and updated clinical details. Patient remains critically ill, still intubated. Patient's oxygen requirement and PEEP pressure has went down. Continue weaning protocol per critical care recommendation. Patient remains off pressor. Continue to wean off from amiodarone and plan to rate control with p.o. medications. Tolerating tube feeding. H&H stable today. Order for stool for occult blood. Monitor H&H and BMP. Continue to follow clinically 07/03: discussed with [facility] physician today. Patient back on 100percent Fio2 since last night. planned for emergent Hd today. spiked fever, start IV Cefepime + Vancomycin renally dosed. Restarted Levophed today, remains on amiodarone drip. Patient family was updated by critical care attending today. 07/04: Patient has hemodialysis yesterday and also plan for today for volume overload and pulmonary edema. Patient currently on 80% FiO2. Remains on Levophed and amiodarone. Hemoglobin dropped to 6.7 without any evidence of ac tive bleeding. LFTs remain stable. Repeat Covid test on 06/30 and 07/03 remains positive. Will transfuse another unit of packed RBC today. Called family for update -explained family that patient is critically ill with very poor prognosis. 07/05: Patient on 70% FiO2 with PEEP of 14. h/h stable after transfusion. hyperkalemia improved, cont sodiumbicarbonate pill with TF. follow BMP. off levophed today, remains on amioderone. poor prognosis. 07/06: Patient remains on amiodarone drip, maintaining BP without any pressor. FiO2 requirement trended down to 60% with PEEP of 14. Continue to follow clinically. Plan to wean off amiodarone drip as tolerated. Wean off from sedation as tolerated. Updated family. Patient remains critically ill with poor prognosis. 07/07: Called family for update. Off amiodarone drip today, patient also off pressor. FiO2 requirement trended up again to 80-100%. Continue to provide supportive care, monitor clinically. Having difficulty to wean off from the v ent support. Patient is persistently positive for COVID-19 and COVID-19 antibody is nonreactive. Patient remains critically ill with very poor prognosis. 07/08: Continue supportive care. Legal Document Specialist escrow officer and service center coordinator input noted. Prognosis remains guarded to poor. Management per team. Critical care time 35-minute 07/09/20 patient is tachycardic. Heart rate 121. Hemoglobin 7.3. Patient is having hemodialysis. Continue supportive care. Patient having difficulty to wean off from the vent support. Prognosis is poor. Nephrology and cardiology follow-up. Recheck CBC BMP in the morning. Continue current management. 07/10/20 patient seen and examined, remains on full ventilator patient is doing better. Patient is off pressor. heart rate 123. Hemoglobin 6.8 and hematocrit 20.7. WBC is 18.1. Continue supportive care. Patient having difficulty to wean off from the vent support. We will started on Zosyn 4.5 g IV every 8 hours. Will transfuse 1 unit of packed red blood cell. Prognosis is poor. Nephrology and cardiology follow up. Recheck CBC BMP in the morning 07/11: remains off vasopressor, h/h appropriately responded to 1 unit PRBC. HD today. Remain on MV with fiO2 at 70%. peep 10. No acute events reported overnight. 3: Patient remains in atrial fibrillation on the client solutions manager, vasopressor support with Levophed and vasopressin, sedated with fentanyl and propofol. Vent settings: CMV 500/25/14/0.60. Patient remains hypercarbic on ABG 07/13: Patient remains on vasopressin, fentanyl and propofol with rectal tube in place. This morning some examination patient was on assist control 25/500/14/0.60. Patient received hemodialysis today. No acute events reported overnight. 07/14: Remains on vasopressin, fentanyl and propofol with tube in place. Rectal tube in place with noted blood clots, GI consulted, on 07/13 H/H dropped from 8.7/27 to 7.4/22 and anticoagulation discontinued. This morning I spoke to his who still wishes for the patient to remain a full code despite update with continued use of vasopressor (vasopressin), current ventilatory support (CMV 500/25/14/0.60) and recent development of rectal bleeding. Patient's family requests an update from [facility] and GI. Cardio changed amio from PO to IV given elevated HR 5: Today the patient received a total of 5 units of PRBC and is still having bleeding through his rectal tube. CTA abdomen/pelvis is pending, patient remains on Levophed, fentanyl, propofol, vasopressin and received hemodialysis today. He was also hyperkalemic today to 6 and he received insulin and D50. Extensive conversation with family conducted by CCM and hospitalist and his and 2 daughters did visit him today at the bedside. 07/16: Continues with full ventilatory support. FMS still inplace with some loose bloody stool. Still on multiple pressors, Bilateral swollen and generalized anascara. Monitor H/H and transfuse as needed. Monitor K level. Discussed with family at bedside yesterday. 07/17: Continue supportive care, transfusion blood possible in am with HD, continue abx, very poor prognosis, blood pressure still labile. Discussed with nurse at bedside 07/18: CTA abdomen/pelvis completed, antibiotics changed to Zosyn per infectious disease, remains on mechanical ventilation 450/25/12/0.55 continue amiodarone drip for 24 more hours, blood culture grew Enterococcus. Remains sedated on propofol and fentanyl. Not on vasopressor support today 07/19: No acute events reported overnight, remains sedated with fentanyl and propofol and off vasopressor therapy today. 07/20: s/p debridement with surgery today, remains on fentanyl, propofol, Levophed and current vent settings 450/25/10/0.45. Patient will be transferred to a bariatric bed once available. 07/21: Continue current management, wean ventilator as tolerated, IV antibiotics deescalated to ampicillin. Per infectious disease no need to exchange/remove lines unless repeat blood cultures turn positive. The time my examination patient was sedated on fentanyl and propofol and remains off vasopressor support. 07/22: At the time my examination patient is sedated on fentanyl and propofol and remains off vasopressor support, repeat COVID-19 PCR negative. Patient remains on ampicillin. H/H remained stable and GI has signed off. Mechanical ventilation weaning as tolerated. 07/23. He remains sedated on fentanyl and propofol. On mechanical ventilation. On levophed. repeat COVID-19 PCR negative. Patient remains on ampicillin. H/H r emained stable and GI has signed off. 07/24. He remains sedated and on mechanical ventilation. On levophed. repeat COVID-19 PCR negative. On ampicillin. ID recs appreciated. Labs reviewed 07/25: Patient remains sedated on fentanyl and Diprivan and remains on mechanical ventilation. Repeat CXR and still has leukocytosis. Patient is n.p.o. for trach and PEG with surgery. Hospitalist Physical - Physical exam Narrative exam: General appearance: Present: mild distress, well-nourished - EENT ENT: ulcerations - Respiratory Respiratory effort: normal Respiratory: bilateral: diminished - Cardiovascular Rhythm: regular Heart Sounds: Present: S1 & S2. Absent: systolic murmur, diastolic murmur - Extremities Extremities: no ischemia, pulses intact, pulses symmetrical, No edema, normal temperature, normal color, Full ROM Peripheral Pulses: within normal limits - Abdominal General gastrointestinal: soft, non-tender, non-distended, normal bowel sounds - Integumentary Integumentary: Present: dry - Psychiatric Psychiatric: other (sedated) - Neurologic Neurologic: other (sedated) - Constitutional Vitals: Temp Pulse Resp BP Pulse Ox 98 F 123 H 17 87/53 96 07/25/20 08:00 07/25/20 08:19 07/25/20 06:10 07/25/20 08:19 07/25/20 08:19 General appearance: Present: mild distress, well-nourished HEART Score - HEART Score Troponin: Troponin T < 0.010 ng/mL (0.00-0.029) 06/17/20 12:33 Results - Labs CBC & Chem 7: 07/25/20 05:39 07/25/20 05:39 Labs: Laboratory Last Values WBC 26.6 K/mm3 (4.5-11.0) H 07/25/20 05:39 RBC 2.79 M/mm3 (3.65-5.03) L 07/25/20 05:39 Hgb 8.5 gm/dl (11.8-15.2) L 07/25/20 05:39 Hct 25.6 % (35.5-45.6) L 07/25/20 05:39 MCV 92 fl (84-94) 07/25/20 05:39 MCH 31 pg (28-32) 07/25/20 05:39 MCHC 33 % (32-34) 07/25/20 05:39 RDW 16.1 % (13.2-15.2) H 07/25/20 05:39 Plt Count 195 K/mm3 (140-440) 07/25/20 05:39 Lymph % (Auto) 5.6 % (13.4-35.0) L 07/12/20 03:40 Wayne % (Auto) 7.4 % (0.0-7.3) H 07/12/20 03:40 Eos % (Auto) 2.8 % (0.0-4.3) 07/12/20 03:40 Baso % (Auto) 0.3 % (0.0-1.8) 07/12/20 03:40 Lymph # (Auto) 1.4 K/mm3 (1.2-5.4) 07/12/20 03:40 Wayne # (Auto) 1.8 K/mm3 (0.0-0.8) H 07/12/20 03:40 Eos # (Auto) 0.7 K/mm3 (0.0-0.4) H 07/12/20 03:40 Baso # (Auto) 0.1 K/mm3 (0.0-0.1) 07/12/20 03:40 Add Manual Diff Complete 07/24/20 06:40 Total Counted 100 07/24/20 06:40 Seg Neutrophils % Post Anesthesia Nurse 07/17/20 15:25 Seg Neuts % (Manual) 85.0 % (40.0-70.0) H 07/24/20 06:40 Band Neutrophils % 3.0 % 07/24/20 06:40 Lymphocytes % (Manual) 6.0 % (13.4-35.0) L 07/24/20 06:40 Reactive Lymphs % (Man) 1.0 % 06/23/20 04:00 Monocytes % (Manual) 3.0 % (0.0-7.3) 07/24/20 06:40 Eosinophils % (Manual) 1.0 % (0.0-4.3) 07/24/20 06:40 Basophils % (Manual) 1.0 % (0.0-1.8) 07/24/20 06:40 Metamyelocytes % 1.0 % 07/24/20 06:40 Myelocytes % 0 % 07/17/20 15:25 Promyelocytes % 0 % 07/17/20 15:25 Nucleated RBC % Not Reportable 07/24/20 06:40 Seg Neutrophils # 20.4 K/mm3 (1.8-7.7) H 07/12/20 03:40 Seg Neutrophils # Man 26.7 K/mm3 (1.8-7.7) H 07/24/20 06:40 Band Neutrophils # 0.9 K/mm3 07/24/20 06:40 Lymphocytes # (Manual) 1.9 K/mm3 (1.2-5.4) 07/24/20 06:40 Abs React Lymphs (Man) 0.0 K/mm3 07/24/20 06:40 Monocytes # (Manual) 0.9 K/mm3 (0.0-0.8) H 07/24/20 06:40 Eosinophils # (Manual) 0.3 K/mm3 (0.0-0.4) 07/24/20 06:40 Basophils # (Manual) 0.3 K/mm3 (0.0-0.1) H 07/24/20 06:40 Metamyelocytes # 0.3 K/mm3 07/24/20 06:40 Myelocytes # 0.0 K/mm3 07/24/20 06:40 Promyelocytes # 0.0 K/mm3 07/24/20 06:40 Blast Cells # 0.0 K/mm3 07/24/20 06:40 Pathologist Review 07/17/20 15:25 WBC Morphology Not Reportable 07/24/20 06:40 Hypersegmented Neuts Not Reportable 07/24/20 06:40 Hyposegmented Neuts Not Reportable 07/24/20 06:40 Hypogranular Neuts Not Reportable 07/24/20 06:40 Smudge Cells Not Reportable 07/24/20 06:40 Toxic Granulation Not Reportable 07/24/20 06:40 Toxic Vacuolation Not Reportable 07/24/20 06:40 Dohle Bodies Not Reportable 07/24/20 06:40 Pelger-Huet Anomaly Not Reportable 07/24/20 06:40 Carlito Rods Not Reportable 07/24/20 06:40 Platelet Estimate Consistent w auto 07/24/20 06:40 Clumped Platelets Not Reportable 07/24/20 06:40 Plt Clumps, EDTA Not Reportable 07/24/20 06:40 Large Platelets Not Reportable 07/24/20 06:40 Giant Platelets Not Reportable 07/24/20 06:40 Platelet Satelliting Not Reportable 07/24/20 06:40 Plt Morphology Comment Not Reportable 07/24/20 06:40 RBC Morphology Not Reportable 07/24/20 06:40 Dimorphic RBCs Not Reportable 07/24/20 06:40 Polychromasia Not Reportable 07/24/20 06:40 Hypochromasia Not Reportable 07/24/20 06:40 Poikilocytosis Not Reportable 07/24/20 06:40 Anisocytosis Few 07/24/20 06:40 Microcytosis Not Reportable 07/24/20 06:40 Macrocytosis Not Reportable 07/24/20 06:40 Spherocytes Not Reportable 07/24/20 06:40 Pappenheimer Bodies Not Reportable 07/24/20 06:40 Sickle Cells Not Reportable 07/24/20 06:40 Target Cells Not Reportable 07/24/20 06:40 Tear Drop Cells Not Reportable 07/24/20 06:40 Ovalocytes Not Reportable 07/24/20 06:40 Stomatocytes Rare 07/10/20 03:55 Helmet Cells Not Reportable 07/24/20 06:40 Brothers-Fishhook Bodies Not Reportable 07/24/20 06:40 Lynn Rings Not Reportable 07/24/20 06:40 Livier Cells Not Reportable 07/24/20 06:40 Bite Cells Not Reportable 07/24/20 06:40 Crenated Cell Not Reportable 07/24/20 06:40 Elliptocytes Not Reportable 07/24/20 06:40 Acanthocytes (Spur) Not Reportable 07/24/20 06:40 Rouleaux Not Reportable 07/24/20 06:40 Hemoglobin C Crystals Not Reportable 07/24/20 06:40 Schistocytes Not Reportable 07/24/20 06:40 Malaria parasites Not Reportable 07/24/20 06:40 Victoriano Bodies Not Reportable 07/24/20 06:40 Hem Pathologist Commnt No 07/24/20 06:40 PT 15.3 Sec. (12.2-14.9) H 07/24/20 20:40 INR 1.21 (0.87-1.13) H 07/24/20 20:40 APTT 36.1 Sec. (24.2-36.6) 07/24/20 20:40 Fibrinogen 419 mg/dl (211-480) 07/15/20 08:21 D-Dimer 6608.00 ng/mlDDU (0-234) H 07/03/20 14:50 Heparin Anti-Xa Level < 0.10 U.I./ml (0.3-0.7) L 06/26/20 01:30 ABG pH 7.355 (7.320-7.450) 07/23/20 04:56 POC ABG pCO2 46.9 mmHg (32.0-48.0) 07/23/20 04:56 ABG pCO2 56.4 mm Hg 07/05/20 04:30 POC ABG pO2 75.7 mmHg (83-108) L 07/23/20 04:56 ABG pO2 151.9 mm Hg (80.0-90.0) H 07/05/20 04:30 POC ABG HCO3 25.6 07/23/20 04:56 ABG HCO3 26.8 mmol/L (20.0-26.0) H 07/05/20 04:30 ABG O2 Saturation 94.8 (0-100) 07/23/20 04:56 ABG O2 Content 5.0 (0.0-44) 07/04/20 05:20 POC ABG Base Excess -0.1 07/23/20 04:56 ABG Base Excess 0.1 mmol/L (-2.0-3.0) 07/05/20 04:30 ABG Hemoglobin 9.3 (12.0-17.5) L 07/23/20 04:56 ABG Oxyhemoglobin 91.7 (94-98) L 07/22/20 04:11 ABG Carboxyhemoglobin 1.7 % (0.0-5.0) 07/05/20 04:30 ABG Methemoglobin 0.3 (0.0-1.5) 07/22/20 04:11 ABG Sodium 139.7 mmol/L (136.0-145.0) 07/23/20 04:56 ABG Potassium 3.1 mmol/L (3.40-4.50) L 07/23/20 04:56 ABG Chloride 108.0 mmol/L (98-107) H 07/23/20 04:56 ABG Glucose 101 mg/dL (65-95) H 07/23/20 04:56 Oxyhemoglobin 96.5 % (95.0-99.0) 07/05/20 04:30 Carboxyhemoglobin 1.3 (0.5-1.5) 07/22/20 04:11 FiO2 50 07/20/20 06:00 FiO2 % 40 07/23/20 04:56 Sodium 140 mmol/L (137-145) 07/25/20 05:39 Potassium 3.1 mmol/L (3.6-5.0) L 07/24/20 06:40 Chloride 104.6 mmol/L (98-107) 07/25/20 05:39 Carbon Dioxide 25 mmol/L (22-30) 07/25/20 05:39 Anion Gap 14 mmol/L 07/25/20 05:39 BUN 55 mg/dL (9-20) H 07/25/20 05:39 Creatinine 2.9 mg/dL (0.8-1.3) H 07/25/20 05:39 Estimated GFR 27 ml/min 07/25/20 05:39 BUN/Creatinine Ratio 19 % 07/25/20 05:39 Glucose 89 mg/dL (75-100) 07/25/20 05:39 POC Glucose 83 mg/dL (70-105) 07/25/20 05:22 Lactic Acid 0.90 mmol/L (0.7-2.0) 07/23/20 Unknown Calcium 9.2 mg/dL (8.4-10.2) 07/25/20 05:39 Phosphorus 9.40 mg/dL (2.5-4.5) H 06/30/20 03:50 Magnesium 2.70 mg/dL (1.7-2.3) H 06/18/20 20:33 Ferritin 1171.0 ng/mL (30.0-300.0) H 07/03/20 14:50 Total Bilirubin 0.20 mg/dL (0.1-1.2) 07/24/20 06:40 Direct Bilirubin 0.5 mg/dL (0-0.2) H 07/05/20 08:21 Indirect Bilirubin 0.1 mg/dL 07/05/20 08:21 AST 46 units/L (5-40) H 07/24/20 06:40 ALT 74 units/L (7-56) H 07/24/20 06:40 Alkaline Phosphatase 180 units/L (35-129) H 07/24/20 06:40 Lactate Dehydrogenase 525 units/L (91-180) H 07/03/20 14:50 Total Creatine Kinase 618 units/L (55-170) H 06/29/20 Unknown Troponin T < 0.010 ng/mL (0.00-0.029) 06/17/20 12:33 C-Reactive Protein 31.50 mg/dL (0.00-1.30) H 07/03/20 14:50 Total Protein 4.6 g/dL (6.3-8.2) L 07/24/20 06:40 Albumin 2.0 g/dL (3.9-5) L 07/24/20 06:40 Albumin/Globulin Ratio 0.8 % 07/24/20 06:40 Triglycerides 197 mg/dL (2-149) H 07/22/20 16:00 Procalcitonin 6.05 ng/mL (<0.15) 07/13/20 06:59 Arterial Blood Glucose 101 mg/dL (65-95) H 07/23/20 04:56 Arterial Blood Ionized Calcium 5.3 mg/dL (4.6-5.3) 07/23/20 04:56 Urine Color Yellow (Yellow) 06/17/20 15:57 Urine Turbidity Clear (Clear) 06/17/20 15:57 Urine pH 6.0 (5.0-7.0) 06/17/20 15:57 Ur Specific Council 1.019 (1.003-1.030) 06/17/20 15:57 Urine Protein 30 mg/dl mg/dL (Negative) 06/17/20 15:57 Urine Glucose (UA) Neg mg/dL (Negative) 06/17/20 15:57 Urine Ketones Neg mg/dL (Negative) 06/17/20 15:57 Urine Blood Sm (Negative) 06/17/20 15:57 Urine Nitrite Neg (Negative) 06/17/20 15:57 Ur Reducing Substances Not Reportable 06/17/20 15:57 Urine Bilirubin Neg (Negative) 06/17/20 15:57 Urine Ictotest Not Reportable 06/17/20 15:57 Urine Urobilinogen < 2.0 mg/dL (<2.0) 06/17/20 15:57 Ur Leukocyte Esterase Neg (Negative) 06/17/20 15:57 Urine WBC (Auto) 1.0 /HPF (0.0-6.0) 06/17/20 15:57 Urine RBC (Auto) 2.0 /HPF (0.0-6.0) 06/17/20 15:57 Urine Mucus Few /HPF 06/17/20 15:57 Urine Creatinine 192.4 mg/dL (0.1-20.0) H 06/18/20 15:00 Urine Sodium 28 mmol/L 06/18/20 15:00 Urine Chloride 31.1 mmolL (110-250) L 06/18/20 15:00 Nasal Screen MRSA (PCR) Negative (Negative) 06/19/20 10:38 Vancomycin Trough 22.7 ug/mL (5.0-20.0) H 06/20/20 08:25 Random Vancomycin 13.5 ug/mL (0-40.0) 07/16/20 07:17 Coronavirus (PCR) Negative (Negative) 07/22/20 Unknown Hepatitis A IgM Ab Non-reactive (NonReactive) 06/22/20 17:00 Hep Bs Antigen Non-reactive (Negative) 06/22/20 17:00 Hep B Core IgM Ab Non-reactive (NonReactive) 06/22/20 17:00 Hepatitis C Antibody Non-reactive (NonReactive) 06/22/20 17:00 SARS-CoV-2 IgG Ab Nonreactive (NonReactive) 07/04/20 05:20 Blood Type A POSITIVE 07/24/20 20:38 Antibody Screen Negative 07/24/20 20:38 Crossmatch See Detail 07/24/20 20:38 - Diagnostic Impressions Diagnostic Impressions: Echocardiogram 06/29/20 06:00 Transthoracic Echocardiogram Indication: A-fib BP: 105/47 HR: 99 Conclusions *The study is technically very difficult and limited due to poor acoustic windows. *Global left ventricular wall motion and contractility are within normal limits. *The estimated ejection fraction is 55-60%. *There is no pericardial effusion. Findings Procedure Info: The study quality is technically difficult. The study is technically limited due to poor acoustic windows. Left Ventricle: Global left ventricular wall motion and contractility are within normal limits. Global left ventricular systolic function is normal. The estimated ejection fraction is 55-60%. Left Atrium: The left atrium is not well visualized. Right Ventricle: The right ventricle is not well visualized. Right Atrium: The right atrium is not well visualized. Aortic Valve: The aortic valve is not well visualized. Mitral Valve: The mitral valve is not well visualized. Tricuspid Valve: The tricuspid valve is not well visualized. Pulmonic Valve: The pulmonic valve is not well visualized. Pericardium: There is no pericardial effusion. Venous: There is no change in the dimension of the inferior vena cava with respiration consistent with markedly increased right atrial pressure. Newell/IV: Voiding Method Incontinent Active Medications - Current Medications Current Medications: Generic Name Dose Route Start Last Admin Trade Name Freq PRN Reason Stop Dose Admin Acetaminophen 650 mg 06/17/20 14:17 07/03/20 09:16 Acetaminophen 325 Mg Tab PO 650 mg Q4H PRN Administration Pain MILD(1-3)/Fever >100.5/ROBERTS Albuterol 2.5 mg 07/19/20 12:15 Albuterol 2.5 Mg/3 Ml Nebu IH Q6HRT PRN Shortness Of Breath Amiodarone HCl 200 mg 07/19/20 14:00 07/24/20 21:32 Amiodarone 200 Mg Tab PO 200 mg BID CONNOR Administration Lipase/Protease/Amylase 1 each 06/19/20 12:15 Lipase 10,500/Protease 25,000/Amylase 43,750 (Units) Dr Cap FEEDTUBE PRN PRN For Clogged Feeding Tube Ascorbic Acid 250 mg 06/17/20 22:00 07/24/20 21:33 Ascorbic Acid 250 Mg Tab PO 250 mg BID CONNOR Administration Cholecalciferol 1,000 unit 06/18/20 10:00 07/24/20 10:30 Cholecalciferol (Vit D3) 1000 Unit (25 Mcg) Tab PO 1,000 unit DAILY CONNOR Administration Docusate Sodium 100 mg 06/23/20 15:00 07/24/20 21:33 Docusate Sodium 100 Mg/10 Ml Oral Liqd FEEDTUBE 100 mg BID CONNOR Administration Fentanyl 50 mcg 06/18/20 01:02 07/09/20 00:20 Fentanyl 100 Mcg/2 Ml Inj IV 50 mcg Q10MIN PRN Administration ANALGESIA Heparin Sodium (Porcine) 5,000 unit 06/22/20 12:53 06/30/20 13:36 Heparin 10,000 Unit/1 Ml Vial IV 5,000 unit PAM PRN Administration hemodialysis Hydrophilic Ointment 1 applic 06/17/20 22:52 07/12/20 20:22 Lip Therapy Vaseline TP 1 applic Q2HR PRN Administration Dry Lips Propofol 1,000 mg in 100 mls @ 3.402 mls/hr 06/18/20 01:00 07/25/20 06:50 Diprivan 10 Mg/Ml IV 20 mcg/kg/min TITR CONNOR 13.608 mls/hr Administration Protocol 5 MCG/KG/MIN Fentanyl Citrate 2,000 mcg in 100 mls @ 8 mls/hr 06/18/20 02:00 07/25/20 01:55 Fentanyl Drip Premix IV 2 mcg/kg/hr TITR CONNOR 16 mls/hr Administration Protocol 1 MCG/KG/HR Norepinephrine 4 mg in 250 mls @ 7.5 mls/hr 07/08/20 02:06 07/25/20 04:51 Levophed Drip 4 Mg/Ns 250 Ml IV 0 mcg/min TITR CONNRO 0 mls/hr Titration Protocol 2 MCG/MIN Vasopressin 20 unit/ Sodium 101 mls @ 9.09 mls/hr 07/11/20 11:00 07/18/20 1 5:36 Chloride IV 0 units/min TITR CONNOR 0 mls/hr Titration Protocol 0.03 UNITS/MIN Sodium Chloride 100 mls @ 999 mls/hr 07/19/20 08:22 Nacl 0.9% IV PAM PRN Hypotension Ampicillin Sodium 2 gm in 100 mls @ 100 mls/hr 07/21/20 12:00 07/25/20 00:44 Ampicillin/Ns 2 Gm/100 Ml IV 08/02/20 12:59 Infused Q12H [facility] Infusion Protocol Insulin Human Regular 0 units 06/18/20 12:00 07/25/20 06:30 Insulin Regular, Human 100 Units/1 Ml SUB-Q Not Given Q6HR [facility] Protocol Multi-Ingred Cream/Lotion/Oil/Oint 1 applic 06/17/20 22:52 07/12/20 20:22 Mineral Oil/Petrolatum, White Ophth Oint 3.5 Gm OU 1 applic Q4HR PRN Administration Dry Eye(s) Ondansetron HCl 4 mg 06/17/20 14:17 Ondansetron 4 Mg/2 Ml Inj IV Q8H PRN Nausea And Vomiting Pantoprazole Sodium 40 mg 07/16/20 22:00 07/24/20 21:33 Pantoprazole 40 Mg Inj IV 40 mg BID CONNOR Administration Polyethylene Glycol 17 gm 06/23/20 15:00 07/24/20 10:33 Polyethylene Glycol 3350 17 Gm Powder PO Not Given QDAY CONNOR Quetiapine Fumarate 200 mg 06/28/20 13:00 07/24/20 21:32 Quetiapine 200 Mg Tab PO 200 mg BID CONNOR Administration Simple Syrup 15 ml 06/19/20 12:15 07/19/20 00:48 Simple Syrup 15 Ml FEEDTUBE 15 ml PRN PRN Administration Hypoglycemia Simple Syrup 30 ml 06/19/20 12:15 07/19/20 06:04 Simple Syrup 15 Ml FEEDTUBE 30 ml PRN PRN Administration Hypoglycemia Sodium Bicarbonate 325 mg 06/19/20 12:15 07/11/20 20:00 Sodium Bicarbonate 325 Mg Tab FEEDTUBE 325 mg PRN PRN Administration For Clogged Feeding Tube Sodium Bicarbonate 650 mg 07/04/20 10:00 07/24/20 20:32 Sodium Bicarbonate 650 Mg Tab PO 650 mg TID CONNOR Administration Sodium Chloride 10 ml 06/17/20 22:00 07/24/20 21:34 Sodium Chloride 0.9% 10 Ml Flush Syringe IV 10 ml BID CONNOR Administration Sodium Chloride 10 ml 06/17/20 14:17 Sodium Chloride 0.9% 10 Ml Flush Syringe IV PRN PRN LINE FLUSH Sodium Hypochlorite 1 applic 07/20/20 10:00 07/24/20 21:33 Sodium Hypochlorite, Dakin's 1/2 Strength (0.25%) 473 Ml Topical Soln TP 1 applicatio BID CONNOR Administration Sodium Polystyrene Sulfonate 15 gm 07/03/20 11:19 07/05/20 10:36 Sodium Polystyrene 15 Gm/60 Ml Oral Liqd PO 15 gm Q6HR PRN Administration Hyperkalemia Zinc Sulfate 220 mg 06/17/20 22:00 07/24/20 21:33 Zinc Sulfate 220 Mg Cap PO 220 mg BID CONNOR Administration Nutrition/Malnutrition Assess - Dietary Evaluation Nutrition/Malnutrition Findings: Nutrition Notes Start: 06/18/20 1 0:28 Freq: Status: Active Protocol: Document 07/22/20 11:37 AL (Rec: 07/22/20 11:42 AL [id number]) Co-Sign 07/22/20 11:37 CW Nutrition Notes Initial or Follow up Reassessment Current Diagnosis Acute Kidney Injury,Sepsis, Respiratory Failure Other Pertinent Diagnosis COVID-19 (+), pneu Current Diet Nepro 1.8 at 50 ml/hr Labs/Tests No new labs Pertinent Medications Colace Vitamin D3 Miralax Propofol 6.8 ml/hr (180 kcal) Height 6 ft Weight 153.9 kg Rhodes Body Weight (kg) 80.90 BMI 46.0 Weight Status Morbidly Obese Subjective/Other Information F/U for stable TF. Pt tolerates TF at 50 ml/hr (goal rate). Pt still on the vent. Pt has new necrotic sacral pressure ulcer. Percent of energy/protein needs met: 89%/48% Burn Absent Trauma Absent GI Symptoms Other Skin Integrity/Comment Unstageable Sacral Pressure Ulcer Current % PO Negligible Minimum of two criteria No physical signs of malnutrition #3 Nutrition Diagnosis Increased nutrient needs ( specify in comment below) Comments: Protein Etiology need for wound healing As Evidenced by Signs and Symptoms Necrotic sacral pressure ulcer #2 Nutrition Diagnosis Overweight/obesity Diagnosis Progress(for reassessment Continues documentation) #1 Nutrition Diagnosis Inadequate oral intake Diagnosis Progress(for reassessment Continues documentation) Is patient on ventilator? Yes Is Patient Ambulatory and/or Out of Bed No REE-([facility]-confined to bed) 2856.504 Kcal/Kg value to use for calculation 14 Approximate Energy Requirements Using 2155 kcal/Kg Calculation Used for Recommendations Kcal/kg Additional Notes Protein needs up to >2 g/kg IBW: 162 g Fluid needs: 1,000 ml + output Nutrition Intervention Change Diet Order: TF Nutrition Support: Nepro 1.8 at 50 ml/hr Flush 215 ml q4h Kcal 2,160 Protein (gm) 97 Fluid (mL) 872 Goal #1 Tolerate TF at goal rate Goal #2 Meet energy and protein needs as best as possible. Goal #3 Wound healing Anticipated Discharge Needs: Unable to determine at the time. Follow-Up By: 07/26/20 Additional Comments F/U for TF tolerance, wound, and vent status
[2020-07-25 09:40] LABS: Band Neutrophils # (Manual) 1.3 K/mm3; Myelocytes # (Manual) 0.3 K/mm3; Total Cells Counted 100
[2020-07-25 09:41] LABS: Anisocytosis 1+; Platelet Estimate Consistent w Auto
[2020-07-25] MEDS: DOCUSATE SODIUM 100 MG/10 ML ORAL LIQD FEEDTUBE SCH ×2 (11:00→21:39)
[2020-07-25] MEDS: SODIUM BICARBONATE 650 MG TAB PO SCH ×3 (11:00→20:30)
[2020-07-25] MEDS: QUEtiapine 200 MG TAB PO SCH ×2 (11:01→21:39)
[2020-07-25] MEDS: ASCORBIC ACID 250 MG TAB PO SCH ×2 (11:01→21:39)
[2020-07-25] MEDS: ZINC SULFATE 220 MG CAP PO SCH ×2 (11:01→21:39)
[2020-07-25] MEDS: POLYETHYLENE GLYCOL 3350 17 GM POWDER PO SCH (11:01)
[2020-07-25] MEDS: CHOLECALCIFEROL (VIT D3) 1000 UNIT (25 mcg) TAB PO SCH (11:01)
--- NOTE | 2020-07-25 11:01 | Progress Note ---
Assessment and Plan - Patient Problems (1) Acute renal failure Current Visit: Yes Status: Acute Qualifiers: Acute renal failure type: with acute tubular necrosis Qualified Code(s): N17.0 - Acute kidney failure with tubular necrosis (2) Severe sepsis with septic shock Current Visit: Yes Status: Acute (3) Hyperkalemia Current Visit: Yes Status: Acute (4) Metabolic acidosis Current Visit: Yes Status: Acute (5) Acute respiratory failure with hypoxia Current Visit: Yes Status: Acute (6) Pneumonia due to COVID-19 virus Current Visit: Yes Status: Acute (7) Transaminitis Current Visit: Yes Status: Acute Subjective Principal diagnosis: ARF; Septic Shock; COVID-19 PNA; Atrial fibrillation; Obesity Objective - Vital Signs Vital signs: Vital Signs - 12hr 07/24/20 07/24/20 07/24/20 23:06 23:10 23:16 Temperature Pulse Rate 119 H 106 H 114 H Pulse Rate [ From Monitor] Respiratory 18 19 18 Rate Blood Pressure 96/56 101/55 101/55 O2 Sat by Pulse 97 95 97 Oximetry O2 Sat by Pulse Oximetry [ Anterior Bilateral Throughout] 07/24/20 07/24/20 07/24/20 23:20 23:26 23:30 Temperature 98.2 F Pulse Rate 113 H 117 H 117 H Pulse Rate [ From Monitor] Respiratory 19 17 28 H Rate Blood Pressure 109/55 109/55 109/55 O2 Sat by Pulse 96 95 94 Oximetry O2 Sat by Pulse Oximetry [ Anterior Bilateral Throughout] 07/24/20 07/24/20 07/24/20 23:32 23:36 23:40 Temperature 98.2 F Pulse Rate 130 H 130 H 128 H Pulse Rate [ From Monitor] Respiratory 24 20 20 Rate Blood Pressure 100/56 100/56 101/54 O2 Sat by Pulse 95 94 95 Oximetry O2 Sat by Pulse Oximetry [ Anterior Bilateral Throughout] 07/24/20 07/24/20 07/24/20 23:43 23:46 23:47 Temperature 98.3 F Pulse Rate 118 H 129 H 119 H Pulse Rate [ From Monitor] Respiratory 19 19 Rate Blood Pressure 109/55 101/54 102/57 O2 Sat by Pulse 96 95 96 Oximetry O2 Sat by Pulse Oximetry [ Anterior Bilateral Throughout] 07/24/20 07/24/20 07/25/20 23:50 23:56 00:00 Temperature Pulse Rate 129 H 129 H 128 H Pulse Rate [ 128 H From Monitor] Respiratory 18 18 19 Rate Blood Pressure 106/55 106/55 102/57 O2 Sat by Pulse 94 96 95 Oximetry O2 Sat by Pulse Oximetry [ Anterior Bilateral Throughout] 07/25/20 07/25/20 07/25/20 00:06 00:10 00:16 Temperature Pulse Rate 128 H 128 H 128 H Pulse Rate [ From Monitor] Respiratory 20 20 20 Rate Blood Pressure 102/57 100/58 100/58 O2 Sat by Pulse 95 96 95 Oximetry O2 Sat by Pulse Oximetry [ Anterior Bilateral Throughout] 07/25/20 07/25/20 07/25/20 00:17 00:20 00:26 Temperature 98.2 F Pulse Rate 128 H 129 H 128 H Pulse Rate [ From Monitor] Respiratory 19 17 18 Rate Blood Pressure 102/57 101/56 101/56 O2 Sat by Pulse 98 92 96 Oximetry O2 Sat by Pulse Oximetry [ Anterior Bilateral Throughout] 07/25/20 07/25/20 07/25/20 00:30 00:36 00:40 Temperature Pulse Rate 129 H 128 H 128 H Pulse Rate [ From Monitor] Respiratory 17 18 19 Rate Blood Pressure 103/58 103/58 94/58 O2 Sat by Pulse 95 96 96 Oximetry O2 Sat by Pulse Oximetry [ Anterior Bilateral Throughout] 07/25/20 07/25/20 07/25/20 00:46 00:47 00:50 Temperature 98.4 F Pulse Rate 128 H 119 H 128 H Pulse Rate [ From Monitor] Respiratory 18 21 17 Rate Blood Pressure 94/58 105/60 103/60 O2 Sat by Pulse 96 96 95 Oximetry O2 Sat by Pulse Oximetry [ Anterior Bilateral Throughout] 07/25/20 07/25/20 07/25/20 00:56 01:00 01:06 Temperature Pulse Rate 127 H 127 H 127 H Pulse Rate [ From Monitor] Respiratory 18 18 19 Rate Blood Pressure 101/56 102/56 102/56 O2 Sat by Pulse 96 95 97 Oximetry O2 Sat by Pulse Oximetry [ Anterior Bilateral Throughout] 07/25/20 07/25/20 07/25/20 01:10 01:16 01:17 Temperature 98.0 F Pulse Rate 127 H 127 H 123 H Pulse Rate [ From Monitor] Respiratory 17 17 19 Rate Blood Pressure 102/57 102/57 110/62 O2 Sat by Pulse 95 97 96 Oximetry O2 Sat by Pulse Oximetry [ Anterior Bilateral Throughout] 07/25/20 07/25/20 07/25/20 01:40 02:06 02:10 Temperature 98.3 F Pulse Rate 126 H 126 H 126 H Pulse Rate [ From Monitor] Respiratory 17 21 19 Rate Blood Pressure 109/55 108/60 110/57 O2 Sat by Pulse 97 97 95 Oximetry O2 Sat by Pulse Oximetry [ Anterior Bilateral Throughout] 07/25/20 07/25/20 07/25/20 02:16 02:20 02:26 Temperature Pulse Rate 126 H 127 H 127 H Pulse Rate [ From Monitor] Respiratory 18 18 18 Rate Blood Pressure 110/57 109/55 109/55 O2 Sat by Pulse 96 94 97 Oximetry O2 Sat by Pulse Oximetry [ Anterior Bilateral Throughout] 07/25/20 07/25/20 07/25/20 02:30 02:36 02:40 Temperature Pulse Rate 126 H 126 H 127 H Pulse Rate [ From Monitor] Respiratory 18 18 15 Rate Blood Pressure 106/60 106/60 105/60 O2 Sat by Pulse 96 96 95 Oximetry O2 Sat by Pulse Oximetry [ Anterior Bilateral Throughout] 07/25/20 07/25/20 07/25/20 02:46 02:50 02:56 Temperature Pulse Rate 126 H 126 H 126 H Pulse Rate [ From Monitor] Respiratory 19 17 19 Rate Blood Pressure 105/60 110/58 110/58 O2 Sat by Pulse 97 100 97 Oximetry O2 Sat by Pulse Oximetry [ Anterior Bilateral Throughout] 07/25/20 07/25/20 07/25/20 03:00 03:06 03:10 Temperature Pulse Rate 126 H 125 H 125 H Pulse Rate [ From Monitor] Respiratory 17 18 17 Rate Blood Pressure 103/58 103/58 106/62 O2 Sat by Pulse 97 96 96 Oximetry O2 Sat by Pulse Oximetry [ Anterior Bilateral Throughout] 07/25/20 07/25/20 07/25/20 03:16 03:20 03:26 Temperature Pulse Rate 125 H 125 H 125 H Pulse Rate [ From Monitor] Respiratory 18 18 18 Rate Blood Pressure 106/62 109/62 109/62 O2 Sat by Pulse 95 100 96 Oximetry O2 Sat by Pulse Oximetry [ Anterior Bilateral Throughout] 07/25/20 07/25/20 07/25/20 03:30 03:36 03:40 Temperature Pulse Rate 125 H 125 H 125 H Pulse Rate [ From Monitor] Respiratory 18 18 16 Rate Blood Pressure 112/62 112/62 106/59 O2 Sat by Pulse 94 96 94 Oximetry O2 Sat by Pulse Oximetry [ Anterior Bilateral Throughout] 07/25/20 07/25/20 07/25/20 03:46 03:50 03:53 Temperature Pulse Rate 125 H 125 H 125 H Pulse Rate [ From Monitor] Respiratory 17 17 Rate Blood Pressure 106/59 104/57 106/62 O2 Sat by Pulse 95 91 95 Oximetry O2 Sat by Pulse Oximetry [ Anterior Bilateral Throughout] 07/25/20 07/25/20 07/25/20 03:56 03:57 04:00 Temperature 98.1 F Pulse Rate 125 H 124 H Pulse Rate [ 124 H From Monitor] Respiratory 15 17 Rate Blood Pressure 104/57 102/64 O2 Sat by Pulse 95 93 Oximetry O2 Sat by Pulse Oximetry [ Anterior Bilateral Throughout] 07/25/20 07/25/20 07/25/20 04:06 04:10 04:16 Temperature Pulse Rate 124 H 124 H 124 H Pulse Rate [ From Monitor] Respiratory 17 17 16 Rate Blood Pressure 102/64 105/60 105/60 O2 Sat by Pulse 95 92 96 Oximetry O2 Sat by Pulse Oximetry [ Anterior Bilateral Throughout] 07/25/20 07/25/20 07/25/20 04:20 04:26 04:30 Temperature Pulse Rate 124 H 124 H 124 H Pulse Rate [ From Monitor] Respiratory 18 16 18 Rate Blood Pressure 100/62 100/62 106/68 O2 Sat by Pulse 100 95 74 L Oximetry O2 Sat by Pulse Oximetry [ Anterior Bilateral Throughout] 07/25/20 07/25/20 07/25/20 04:36 04:40 04:46 Temperature Pulse Rate 125 H 124 H 123 H Pulse Rate [ From Monitor] Respiratory 16 18 20 Rate Blood Pressure 106/68 106/68 122/85 O2 Sat by Pulse 94 100 93 Oximetry O2 Sat by Pulse Oximetry [ Anterior Bilateral Throughout] 07/25/20 07/25/20 07/25/20 04:50 04:56 05:00 Temperature Pulse Rate 124 H 123 H 118 H Pulse Rate [ From Monitor] Respiratory 22 18 17 Rate Blood Pressure 122/85 115/74 115/74 O2 Sat by Pulse 97 97 97 Oximetry O2 Sat by Pulse Oximetry [ Anterior Bilateral Throughout] 07/25/20 07/25/20 07/25/20 05:06 05:10 05:16 Temperature Pulse Rate 119 H 121 H 123 H Pulse Rate [ From Monitor] Respiratory 21 21 21 Rate Blood Pressure 113/60 102/60 102/60 O2 Sat by Pulse 93 93 96 Oximetry O2 Sat by Pulse Oximetry [ Anterior Bilateral Throughout] 07/25/20 07/25/20 07/25/20 05:20 05:26 05:30 Temperature Pulse Rate 123 H 123 H 123 H Pulse Rate [ From Monitor] Respiratory 20 20 20 Rate Blood Pressure 105/57 105/57 103/56 O2 Sat by Pulse 95 96 94 Oximetry O2 Sat by Pulse Oximetry [ Anterior Bilateral Throughout] 07/25/20 07/25/20 07/25/20 05:36 05:40 05:46 Temperature Pulse Rate 123 H 123 H 123 H Pulse Rate [ From Monitor] Respiratory 18 19 20 Rate Blood Pressure 103/56 103/56 103/56 O2 Sat by Pulse 97 95 96 Oximetry O2 Sat by Pulse Oximetry [ Anterior Bilateral Throughout] 07/25/20 07/25/20 07/25/20 05:50 05:56 06:00 Temperature Pulse Rate 118 H 123 H 123 H Pulse Rate [ From Monitor] Respiratory 20 19 18 Rate Blood Pressure 96/56 96/56 101/56 O2 Sat by Pulse 95 90 95 Oximetry O2 Sat by Pulse Oximetry [ Anterior Bilateral Throughout] 07/25/20 07/25/20 07/25/20 06:06 06:10 08:00 Temperature 98 F Pulse Rate 123 H 124 H Pulse Rate [ From Monitor] Respiratory 17 17 Rate Blood Pressure 101/56 97/57 O2 Sat by Pulse 97 95 Oximetry O2 Sat by Pulse Oximetry [ Anterior Bilateral Throughout] 07/25/20 07/25/20 07/25/20 08:19 10:00 10:11 Temperature 97.9 F Pulse Rate 123 H 123 H 125 H Pulse Rate [ From Monitor] Respiratory 17 Rate Blood Pressure 87/53 96/52 98/56 O2 Sat by Pulse 96 Oximetry O2 Sat by Pulse 95 Oximetry [ Anterior Bilateral Throughout] 07/25/20 07/25/20 10:30 10:48 Temperature Pulse Rate 126 H 126 H Pulse Rate [ From Monitor] Respiratory Rate Blood Pressure 96/54 88/54 O2 Sat by Pulse Oximetry O2 Sat by Pulse Oximetry [ Anterior Bilateral Throughout] - Lab 07/25/20 05:39 07/25/20 05:39 Most recent lab results ABG pH 7.355 (7.320-7.450) 07/23/20 04:56 ABG pCO2 56.4 mm Hg 07/05/20 04:30 ABG pO2 151.9 mm Hg (80.0-90.0) H 07/05/20 04:30 ABG HCO3 26.8 mmol/L (20.0-26.0) H 07/05/20 04:30 ABG O2 Saturation 94.8 (0-100) 07/23/20 04:56 Calcium 9.2 mg/dL (8.4-10.2) 07/25/20 05:39 Phosphorus 9.40 mg/dL (2.5-4.5) H 06/30/20 03:50 Magnesium 2.70 mg/dL (1.7-2.3) H 06/18/20 20:33 Urine Creatinine 192.4 mg/dL (0.1-20.0) H 06/18/20 15:00 Urine Sodium 28 mmol/L 06/18/20 15:00 Medications & Allergies - Medications Allergies/Adverse Reactions: Allergies No Known Allergies Allergy (Unverified 06/17/20 14:24) Home Medications: Home Medications Medication Instructions Recorded Confirmed Last Taken Type Losartan/Hydrochlorothiazide 1 each PO QDAY 06/19/20 06/19/20 Unknown History [Losartan-Hctz 100-25 mg Tab] amLODIPine [Norvasc] 5 mg PO DAILY 06/19/20 06/19/20 Unknown History Active Medications: Generic Name Dose Route Start Last Admin Trade Name Garrett PRN Reason Stop Dose Admin Acetaminophen 650 mg 06/17/20 14:17 07/03/20 09:16 Acetaminophen 325 Mg Tab PO 650 mg Q4H PRN Administration Pain MILD(1-3)/Fever >100.5/ROBERTS Albuterol 2.5 mg 07/19/20 12:15 Albuterol 2.5 Mg/3 Ml Nebu IH Q6HRT PRN Shortness Of Breath Amiodarone HCl 200 mg 07/19/20 14:00 07/24/20 21:32 Amiodarone 200 Mg Tab PO 200 mg BID CONNOR Administration Lipase/Protease/Amylase 1 each 06/19/20 12:15 Lipase 10,500/Protease 25,000/Amylase 43,750 (Units) Dr Cap FEEDTUBE PRN PRN For Clogged Feeding Tube Ascorbic Acid 250 mg 06/17/20 22:00 07/25/20 11:01 Ascorbic Acid 250 Mg Tab PO Not Given BID CONNOR Cholecalciferol 1,000 unit 06/18/20 10:00 07/25/20 11:01 Cholecalciferol (Vit D3) 1000 Unit (25 Mcg) Tab PO Not Given DAILY CONNOR Docusate Sodium 100 mg 06/23/20 15:00 07/25/20 11:00 Docusate Sodium 100 Mg/10 Ml Oral Liqd FEEDTUBE Not Given BID CONNOR Fentanyl 50 mcg 06/18/20 01:02 07/09/20 00:20 Fentanyl 100 Mcg/2 Ml Inj IV 50 mcg Q10MIN PRN Administration ANALGESIA Heparin Sodium (Porcine) 5,000 unit 06/22/20 12:53 06/30/20 13:36 Heparin 10,000 Unit/1 Ml Vial IV 5,000 unit PAM PRN Administration hemodialysis Hydrophilic Ointment 1 applic 06/17/20 22:52 07/12/20 20:22 Lip Therapy Vaseline TP 1 applic Q2HR PRN Administration Dry Lips Propofol 1,000 mg in 100 mls @ 3.402 mls/hr 06/18/20 01:00 07/25/20 06:50 Diprivan 10 Mg/Ml IV 20 mcg/kg/min TITR CONNOR 13.608 mls/hr Administration Protocol 5 MCG/KG/MIN Fentanyl Citrate 2,000 mcg in 100 mls @ 8 mls/hr 06/18/20 02:00 07/25/20 09:51 Fentanyl Drip Premix IV 2 mcg/kg/hr TITR CONNOR 16 mls/hr Administration Protocol 1 MCG/KG/HR Norepinephrine 4 mg in 250 mls @ 7.5 mls/hr 07/08/20 02:06 07/25/20 04:51 Levophed Drip 4 Mg/Ns 250 Ml IV 0 mcg/min TITR CONNOR 0 mls/hr Titration Protocol 2 MCG/MIN Vasopressin 20 unit/ Sodium 101 mls @ 9.09 mls/hr 07/11/20 11:00 07/18/20 15:36 Chloride IV 0 units/min TITR CONNOR 0 mls/hr Titration Protocol 0.03 UNITS/MIN Sodium Chloride 100 mls @ 999 mls/hr 07/19/20 08:22 Nacl 0.9% IV PAM PRN Hypotension Ampicillin Sodium 2 gm in 100 mls @ 100 mls/hr 07/21/20 12:00 07/25/20 00:44 Ampicillin/Ns 2 Gm/100 Ml IV 08/02/20 12:59 Infused Q12H [facility] Infusion Protocol Insulin Human Regular 0 units 06/18/20 12:00 07/25/20 06:30 Insulin Regular, Human 100 Units/1 Ml SUB-Q Not Given Q6HR [facility] Protocol Multi-Ingred Cream/Lotion/Oil/Oint 1 applic 06/17/20 22:52 07/12/20 20:22 Mineral Oil/Petrolatum, White Ophth Oint 3.5 Gm OU 1 applic Q4HR PRN Administration Dry Eye(s) Ondansetron HCl 4 mg 06/17/20 14:17 Ondansetron 4 Mg/2 Ml Inj IV Q8H PRN Nausea And Vomiting Pantoprazole Sodium 40 mg 07/16/20 22:00 07/24/20 21:33 Pantoprazole 40 Mg Inj IV 40 mg BID CONNOR Administration Polyethylene Glycol 17 gm 06/23/20 15:00 07/25/20 11:01 Polyethylene Glycol 3350 17 Gm Powder PO Not Given QDAY CONNOR Quetiapine Fumarate 200 mg 06/28/20 13:00 07/25/20 11:01 Quetiapine 200 Mg Tab PO Not Given BID CONNOR Simple Syrup 15 ml 06/19/20 12:15 07/19/20 00:48 Simple Syrup 15 Ml FEEDTUBE 15 ml PRN PRN Administration Hypoglycemia Simple Syrup 30 ml 06/19/20 12:15 07/19/20 06:04 Simple Syrup 15 Ml FEEDTUBE 30 ml PRN PRN Administration Hypoglycemia Sodium Bicarbonate 325 mg 06/19/20 12:15 07/11/20 20:00 Sodium Bicarbonate 325 Mg Tab FEEDTUBE 325 mg PRN PRN Administration For Clogged Feeding Tube Sodium Bicarbonate 650 mg 07/04/20 10:00 07/25/20 11:00 Sodium Bicarbonate 650 Mg Tab PO Not Given TID CONNOR Sodium Chloride 10 ml 06/17/20 22:00 07/24/20 21:34 Sodium Chloride 0.9% 10 Ml Flush Syringe IV 10 ml BID CONNOR Administration Sodium Chloride 10 ml 06/17/20 14:17 Sodium Chloride 0.9% 10 Ml Flush Syringe IV PRN PRN LINE FLUSH Sodium Hypochlorite 1 applic 07/20/20 10:00 07/24/20 21:33 Sodium Hypochlorite, Dakin's 1/2 Strength (0.25%) 473 Ml Topical Soln TP 1 applicatio BID CONNOR Administration Sodium Polystyrene Sulfonate 15 gm 07/03/20 11:19 07/05/20 10:36 Sodium Polystyrene 15 Gm/60 Ml Oral Liqd PO 15 gm Q6HR PRN Administration Hyperkalemia Zinc Sulfate 220 mg 06/17/20 22:00 07/25/20 11:01 Zinc Sulfate 220 Mg Cap PO Not Given BID CONNOR
--- NOTE | 2020-07-25 13:21 | Progress Note ---
Assessment and Plan Acute hypoxemic respiratory failure due to COVID-19 Severe COVID infection Severe Sepsis with shock Bilateral pneumonia Acute kidney injury (GIRISH) with acute tubular necrosis (ATN) Elevated liver enzymes Obesity - received PRBC transfusion pre: Surgery - for HD/UF today - tentatively for trach & PEG if OR space available - continue care as below otherwise; - reduce poeep to 8 cm H2O - continue wound care per WCN / RN - continue on bariatric bed - continue to avoid supine position as much as possible - adjust ant-infective's per ID rec's (Ampicillin) - continue bid protonix - wean vasopressors for target MAP > 65 mmHg - continue daily SAT's & SBT's as tolerated - continue tube feeds at goal rate as tolerated - continue HD/UF per nephrology team for toxin and volume clearance - continue bowel regimen - Continue to wean supplemental oxygen for O2 sats >92% - Monitor blood pressure closely while optimizing sedation,wean vasopressor support for MAP > 65 mmHg - VAP bundle addressed, aspiration precautions HOB >40 - continue lung protective strategies, permissive hypercapnic acceptable. - continue bronchodilators with pulmonary hygiene per RT - wean per pulmonary driven protocols otherwise - accuchecks with glycemic control per SSI (While critically ill target blood glucose of 140-180 mg/dL; avoid hypoglycemia) - sedation prn for target RASS -1 to -2 - continue enteral nutritional support at goal rate as tolerated - on antibiotics per ID recommendations - follow clinically re: fevers / WBC - Monitor liver function test ,avoid hepatotoxic agents - azotemia per nephrology rec's - Avoid nephrotoxins, renally dose all medications, conservative fluid management - continue to avoid benzodiazepines, reduce the possibility of delirium, - prn analgesia per CPOT score - Maintenance of sleep-wake cycle, avoid delirium - Stress ulcer prophylaxis, Famotidine - PT/OT/ROM exercises - Mobility protocols for pressure ulcer prevention - CXR, ABG in am - CBC, CMP in am - Supportive transfusions to keep HgB >7g/dL - Monitor hemodynamics closely - continue other care per attending / other consultants COVID SPECIFIC INTERVENTIONS - s/p steroids: Dexamethasone - completed Remdesivir - monitor inflammatory markers prn - ferritin, D-dimer, CRP, LDH per facility protocol - continue anticoagulation per System Protocol based on d-dimer (on hold due to bleeding) - continue contact and airborne isolation CONDITION: CRITICAL PROGNOSIS: GUARDED CODE STATUS: FULL CODE The high probability of a clinically significant, sudden or life-threatening deterioration of the [respiratory, cardiovascular, hematologic & neurologic] system(s) required my full and direct attention, intervention and personal management. The aggregate critical care time was [35] minutes without overlap. Time includes spent on; [x] Data Review and interpretation [x] Patient assessment and monitoring of vital signs [x] Documentation [x] Medication orders and management He was evaluated in the context of the global COVID-19 pandemic, which necessitated consideration that the patient might be at risk for infection with the virus that causes COVID-19. Institutional protocols and algorithms that p ertain to the evaluation of patients at risk for COVID-19 are in a state of rapid change based on information released by regulatory bodies including the CDC and federal and state organizations. These policies and algorithms were followed during the patient's care in the ICU Please note that these policies, procedures and recommendations changed on a rapid basis. Subjective Date of service: 07/25/20 Principal diagnosis: ARF; Septic Shock; COVID-19 PNA; Atrial fibrillation; Obesity Interval history: Patient is seen today for: Ac hypoxemic respiratory failure; COVID-19; Severe Sepsis with shock; Zackery. pneumonia; GIRISH; Elevated liver enzymes; Obesity Seen and examined at bedside; 24hour events reviewed; nursing and respiratory care staff consulted; no adverse overnight events reported to me; resting in bed; remains on MVS; Levophed drip off; tentatively for tracheostomy today; ANS is persistent; no gross bleeding Objective Vital Signs - 12hr 07/25/20 07/25/20 07/25/20 01:40 02:06 02:10 Temperature 98.3 F Pulse Rate 126 H 126 H 126 H Pulse Rate [ From Monitor] Respiratory 17 21 19 Rate Blood Pressure 109/55 108/60 110/57 O2 Sat by Pulse 97 97 95 Oximetry O2 Sat by Pulse Oximetry [ Anterior Bilateral Throughout] 07/25/20 07/25/20 07/25/20 02:16 02:20 02:26 Temperature Pulse Rate 126 H 127 H 127 H Pulse Rate [ From Monitor] Respiratory 18 18 18 Rate Blood Pressure 110/57 109/55 109/55 O2 Sat by Pulse 96 94 97 Oximetry O2 Sat by Pulse Oximetry [ Anterior Bilateral Throughout] 07/25/20 07/25/20 07/25/20 02:30 02:36 02:40 Temperature Pulse Rate 126 H 126 H 127 H Pulse Rate [ From Monitor] Respiratory 18 18 15 Rate Blood Pressure 106/60 106/60 105/60 O2 Sat by Pulse 96 96 95 Oximetry O2 Sat by Pulse Oximetry [ Anterior Bilateral Throughout] 07/25/20 07/25/20 07/25/20 02:46 02:50 02:56 Temperature Pulse Rate 126 H 126 H 126 H Pulse Rate [ From Monitor] Respiratory 19 17 19 Rate Blood Pressure 105/60 110/58 110/58 O2 Sat by Pulse 97 100 97 Oximetry O2 Sat by Pulse Oximetry [ Anterior Bilateral Throughout] 07/25/20 07/25/20 07/25/20 03:00 03:06 03:10 Temperature Pulse Rate 126 H 125 H 125 H Pulse Rate [ From Monitor] Respiratory 17 18 17 Rate Blood Pressure 103/58 103/58 106/62 O2 Sat by Pulse 97 96 96 Oximetry O2 Sat by Pulse Oximetry [ Anterior Bilateral Throughout] 07/25/20 07/25/20 07/25/20 03:16 03:20 03:26 Temperature Pulse Rate 125 H 125 H 125 H Pulse Rate [ From Monitor] Respiratory 18 18 18 Rate Blood Pressure 106/62 109/62 109/62 O2 Sat by Pulse 95 100 96 Oximetry O2 Sat by Pulse Oximetry [ Anterior Bilateral Throughout] 07/25/20 07/25/20 07/25/20 03:30 03:36 03:40 Temperature Pulse Rate 125 H 125 H 125 H Pulse Rate [ From Monitor] Respiratory 18 18 16 Rate Blood Pressure 112/62 112/62 106/59 O2 Sat by Pulse 94 96 94 Oximetry O2 Sat by Pulse Oximetry [ Anterior Bilateral Throughout] 07/25/20 07/25/20 07/25/20 03:46 03:50 03:53 Temperature Pulse Rate 125 H 125 H 125 H Pulse Rate [ From Monitor] Respiratory 17 17 Rate Blood Pressure 106/59 104/57 106/62 O2 Sat by Pulse 95 91 95 Oximetry O2 Sat by Pulse Oximetry [ Anterior Bilateral Throughout] 07/25/20 07/25/20 07/25/20 03:56 03:57 04:00 Temperature 98.1 F Pulse Rate 125 H 124 H Pulse Rate [ 124 H From Monitor] Respiratory 15 17 Rate Blood Pressure 104/57 102/64 O2 Sat by Pulse 95 93 Oximetry O2 Sat by Pulse Oximetry [ Anterior Bilateral Throughout] 07/25/20 07/25/20 07/25/20 04:06 04:10 04:16 Temperature Pulse Rate 124 H 124 H 124 H Pulse Rate [ From Monitor] Respiratory 17 17 16 Rate Blood Pressure 102/64 105/60 105/60 O2 Sat by Pulse 95 92 96 Oximetry O2 Sat by Pulse Oximetry [ Anterior Bilateral Throughout] 07/25/20 07/25/20 07/25/20 04:20 04:26 04:30 Temperature Pulse Rate 124 H 124 H 124 H Pulse Rate [ From Monitor] Respiratory 18 16 18 Rate Blood Pressure 100/62 100/62 106/68 O2 Sat by Pulse 100 95 74 L Oximetry O2 Sat by Pulse Oximetry [ Anterior Bilateral Throughout] 07/25/20 07/25/20 07/25/20 04:36 04:40 04:46 Temperature Pulse Rate 125 H 124 H 123 H Pulse Rate [ From Monitor] Respiratory 16 18 20 Rate Blood Pressure 106/68 106/68 122/85 O2 Sat by Pulse 94 100 93 Oximetry O2 Sat by Pulse Oximetry [ Anterior Bilateral Throughout] 07/25/20 07/25/20 07/25/20 04:50 04:56 05:00 Temperature Pulse Rate 124 H 123 H 118 H Pulse Rate [ From Monitor] Respiratory 22 18 17 Rate Blood Pressure 122/85 115/74 115/74 O2 Sat by Pulse 97 97 97 Oximetry O2 Sat by Pulse Oximetry [ Anterior Bilateral Throughout] 07/25/20 07/25/20 07/25/20 05:06 05:10 05:16 Temperature Pulse Rate 119 H 121 H 123 H Pulse Rate [ From Monitor] Respiratory 21 21 21 Rate Blood Pressure 113/60 102/60 102/60 O2 Sat by Pulse 93 93 96 Oximetry O2 Sat by Pulse Oximetry [ Anterior Bilateral Throughout] 07/25/20 07/25/20 07/25/20 05:20 05:26 05:30 Temperature Pulse Rate 123 H 123 H 123 H Pulse Rate [ From Monitor] Respiratory 20 20 20 Rate Blood Pressure 105/57 105/57 103/56 O2 Sat by Pulse 95 96 94 Oximetry O2 Sat by Pulse Oximetry [ Anterior Bilateral Throughout] 07/25/20 07/25/20 07/25/20 05:36 05:40 05:46 Temperature Pulse Rate 123 H 123 H 123 H Pulse Rate [ From Monitor] Respiratory 18 19 20 Rate Blood Pressure 103/56 103/56 103/56 O2 Sat by Pulse 97 95 96 Oximetry O2 Sat by Pulse Oximetry [ Anterior Bilateral Throughout] 07/25/20 07/25/20 07/25/20 05:50 05:56 06:00 Temperature Pulse Rate 118 H 123 H 123 H Pulse Rate [ From Monitor] Respiratory 20 19 18 Rate Blood Pressure 96/56 96/56 101/56 O2 Sat by Pulse 95 90 95 Oximetry O2 Sat by Pulse Oximetry [ Anterior Bilateral Throughout] 07/25/20 07/25/20 07/25/20 06:06 06:10 08:00 Temperature 98 F Pulse Rate 123 H 124 H Pulse Rate [ From Monitor] Respiratory 17 17 Rate Blood Pressure 101/56 97/57 O2 Sat by Pulse 97 95 Oximetry O2 Sat by Pulse Oximetry [ Anterior Bilateral Throughout] 07/25/20 07/25/20 07/25/20 08:19 10:00 10:11 Temperature 97.9 F Pulse Rate 123 H 123 H 125 H Pulse Rate [ From Monitor] Respiratory 17 Rate Blood Pressure 87/53 96/52 98/56 O2 Sat by Pulse 96 Oximetry O2 Sat by Pulse 95 Oximetry [ Anterior Bilateral Throughout] 07/25/20 07/25/20 07/25/20 10:30 10:45 11:00 Temperature Pulse Rate 126 H 126 H 122 H Pulse Rate [ From Monitor] Respiratory Rate Blood Pressure 96/54 88/54 101/52 O2 Sat by Pulse Oximetry O2 Sat by Pulse Oximetry [ Anterior Bilateral Throughout] 07/25/20 07/25/20 07/25/20 11:15 11:30 11:39 Temperature Pulse Rate 119 H 103 H 118 H Pulse Rate [ From Monitor] Respiratory Rate Blood Pressure 95/55 105/54 106/54 O2 Sat by Pulse 95 Oximetry O2 Sat by Pulse Oximetry [ Anterior Bilateral Throughout] 07/25/20 07/25/20 07/25/20 11:45 12:00 12:15 Temperature 97.8 F Pulse Rate 121 H 98 H 110 H Pulse Rate [ From Monitor] Respiratory Rate Blood Pressure 90/59 106/53 123/64 O2 Sat by Pulse Oximetry O2 Sat by Pulse Oximetry [ Anterior Bilateral Throughout] 07/25/20 07/25/20 07/25/20 12:30 12:45 13:00 Temperature Pulse Rate 97 H 119 H 106 H Pulse Rate [ From Monitor] Respiratory Rate Blood Pressure 103/58 104/63 106/61 O2 Sat by Pulse Oximetry O2 Sat by Pulse Oximetry [ Anterior Bilateral Throughout] 07/25/20 13:15 Temperature Pulse Rate 102 H Pulse Rate [ From Monitor] Respiratory Rate Blood Pressure 90/54 O2 Sat by Pulse Oximetry O2 Sat by Pulse Oximetry [ Anterior Bilateral Throughout] Constitutional: appears uncomfortable, other (morbidly obese, atraumatic, normocephalic, mild resp distress, orally intubated) Eyes: non-icteric ENT: oropharynx dry, other (ETT 24 cm TROY ) Neck: supple, no lymphadenopathy, other (Large , short neck) Effort: mildly labored Ascultation: Bilateral: diminished breath sounds, rhonchi Percussion: Bilateral: not dull Cardiovascular: irregular rhythm, other (S1,S2) Gastrointestinal: normoactive bowel sounds, soft, non-tender, non-distended (protuberant), other (lizeth-rectal tube slow oozing) Integumentary: rash, other (Femoral CVC, Newell catheter) Extremities: pink and warm, pulses normal, no ischemia or petechiae, edema (t race to 1+) Neurologic: non-focal exam (grossly), pupils equal and round, CN II-XII normal, other (unable to assess, sedated) Psychiatric: other (unable to assess, sedated) CBC and BMP: 07/26/20 Unknown 07/26/20 08:46 ABG, PT/INR, D-dimer: ABG ABG pH 7.355 (7.320-7.450) 07/23/20 04:56 POC ABG pCO2 46.9 mmHg (32.0-48.0) 07/23/20 04:56 ABG pCO2 56.4 mm Hg 07/05/20 04:30 POC ABG pO2 75.7 mmHg (83-108) L 07/23/20 04:56 ABG pO2 151.9 mm Hg (80.0-90.0) H 07/05/20 04:30 POC ABG HCO3 25.6 07/23/20 04:56 ABG O2 Saturation 94.8 (0-100) 07/23/20 04:56 PT/INR, D-dimer PT 15.3 Sec. (12.2-14.9) H 07/24/20 20:40 INR 1.21 (0.87-1.13) H 07/24/20 20:40 D-Dimer 6608.00 ng/mlDDU (0-234) H 07/03/20 14:50 Abnormal lab findings: Abnormal Labs 06/17/20 06/17/20 06/17/20 12:33 12:33 12:33 WBC 19.5 H RBC 5.18 H Hgb 15.5 H Hct MCHC RDW Plt Count Lymph % (Auto) 3.8 L Cole % (Auto) Lymph # (Auto) 0.7 L Cole # (Auto) Eos # (Auto) Seg Neutrophils % Seg Neuts % (Manual) 99.0 H Lymphocytes % (Manual) 1.0 L Monocytes % (Manual) Basophils % (Manual) Nucleated RBC % Seg Neutrophils # 18.2 H Seg Neutrophils # Man 19.3 H Lymphocytes # (Manual) 0.2 L Monocytes # (Manual) Eosinophils # (Manual) Basophils # (Manual) PT 16.5 H INR 1.33 H APTT D-Dimer 1025.04 H Heparin Anti-Xa Level ABG pH POC ABG pCO2 POC ABG pO2 ABG pO2 ABG HCO3 ABG Hemoglobin ABG Oxyhemoglobin ABG Sodium ABG Potassium ABG Chloride ABG Glucose Carboxyhemoglobin Sodium 130 L Potassium 3.4 L Chloride 95.0 L Carbon Dioxide BUN 21 H Creatinine Glucose 137 H POC Glucose Lactic Acid Calcium 7.9 L Phosphorus Magnesium Ferritin Direct Bilirubin AST 84 H ALT 67 H Alkaline Phosphatase Lactate Dehydrogenase 437 H Total Creatine Kinase 310 H C-Reactive Protein 27.90 H Total Protein Albumin 2.9 L Triglycerides Arterial Blood Glucose Arterial Blood Ionized Calcium Urine Creatinine Urine Chloride Vancomycin Trough Coronavirus (PCR) Crossmatch 06/17/20 06/17/20 06/17/20 12:33 12:33 14:48 WBC RBC Hgb Hct MCHC RDW Plt Count Lymph % (Auto) Cole % (Auto) Lymph # (Auto) Cole # (Auto) Eos # (Auto) Seg Neutrophils % Seg Neuts % (Manual) Lymphocytes % (Manual) Monocytes % (Manual) Basophils % (Manual) Nucleated RBC % Seg Neutrophils # Seg Neutrophils # Man Lymphocytes # (Manual) Monocytes # (Manual) Eosinophils # (Manual) Basophils # (Manual) PT INR APTT D-Dimer Heparin Anti-Xa Level ABG pH POC ABG pCO2 POC ABG pO2 ABG pO2 ABG HCO3 ABG Hemoglobin ABG Oxyhemoglobin ABG Sodium ABG Potassium ABG Chloride ABG Glucose Carboxyhemoglobin Sodium Potassium Chloride Carbon Dioxide BUN Creatinine Glucose POC Glucose Lactic Acid 2.50 H* 2.20 H* Calcium Phosphorus Magnesium Ferritin 2297.0 H Direct Bilirubin AST ALT Alkaline Phosphatase Lactate Dehydrogenase Total Creatine Kinase C-Reactive Protein Total Protein Albumin Triglycerides Arterial Blood Glucose Arterial Blood Ionized Calcium Urine Creatinine Urine Chloride Vancomycin Trough Coronavirus (PCR) Crossmatch 06/17/20 06/17/20 06/17/20 14:48 14:48 14:48 WBC RBC Hgb Hct MCHC RDW Plt Count Lymph % (Auto) Cole % (Auto) Lymph # (Auto) Cole # (Auto) Eos # (Auto) Seg Neutrophils % Seg Neuts % (Manual) Lymphocytes % (Manual) Monocytes % (Manual) Basophils % (Manual) Nucleated RBC % Seg Neutrophils # Seg Neutrophils # Man Lymphocytes # (Manual) Monocytes # (Manual) Eosinophils # (Manual) Basophils # (Manual) PT INR APTT D-Dimer 939.89 H Heparin Anti-Xa Level ABG pH POC ABG pCO2 POC ABG pO2 ABG pO2 ABG HCO3 ABG Hemoglobin ABG Oxyhemoglobin ABG Sodium ABG Potassium ABG Chloride ABG Glucose Carboxyhemoglobin Sodium Potassium Chloride Carbon Dioxide BUN Creatinine Glucose 141 H POC Glucose Lactic Acid Calcium Phosphorus Magnesium Ferritin > 2000.0 H Direct Bilirubin AST ALT Alkaline Phosphatase Lactate Dehydrogenase 503 H Total Creatine Kinase C-Reactive Protein 24.70 H Total Protein Albumin Triglycerides Arterial Blood Glucose Arterial Blood Ionized Calcium Urine Creatinine Urine Chloride Vancomycin Trough Coronavirus (PCR) Crossmatch 06/17/20 06/17/20 06/17/20 16:54 19:39 23:43 WBC RBC Hgb Hct MCHC RDW Plt Count Lymph % (Auto) Cole % (Auto) Lymph # (Auto) Cole # (Auto) Eos # (Auto) Seg Neutrophils % Seg Neuts % (Manual) Lymphocytes % (Manual) Monocytes % (Manual) Basophils % (Manual) Nucleated RBC % Seg Neutrophils # Seg Neutrophils # Man Lymphocytes # (Manual) Monocytes # (Manual) Eosinophils # (Manual) Basophils # (Manual) PT INR APTT D-Dimer Heparin Anti-Xa Level ABG pH 7.571 H POC ABG pCO2 24.3 L POC ABG pO2 41.6 L ABG pO2 ABG HCO3 ABG Hemoglobin ABG Oxyhemoglobin 84.0 L ABG Sodium 131.0 L ABG Potassium ABG Chloride ABG Glucose 163 H Carboxyhemoglobin Sodium Potassium Chloride Carbon Dioxide BUN Creatinine Glucose POC Glucose 185 H Lactic Acid 2.10 H* Calcium Phosphorus Magnesium Ferritin Direct Bilirubin AST ALT Alkaline Phosphatase Lactate Dehydrogenase Total Creatine Kinase C-Reactive Protein Total Protein Albumin Triglycerides Arterial Blood Glucose 163 H Arterial Blood Ionized Calcium 4.4 L Urine Creatinine Urine Chloride Vancomycin Trough Coronavirus (PCR) Crossmatch 06/18/20 06/18/20 06/18/20 00:17 00:23 03:55 WBC RBC Hgb Hct MCHC RDW Plt Count Lymph % (Auto) Cole % (Auto) Lymph # (Auto) Cole # (Auto) Eos # (Auto) Seg Neutrophils % Seg Neuts % (Manual) Lymphocytes % (Manual) Monocytes % (Manual) Basophils % (Manual) Nucleated RBC % Seg Neutrophils # Seg Neutrophils # Man Lymphocytes # (Manual) Monocytes # (Manual) Eosinophils # (Manual) Basophils # (Manual) PT INR APTT D-Dimer Heparin Anti-Xa Level ABG pH POC ABG pCO2 POC ABG pO2 56.5 L 48.3 L ABG pO2 ABG HCO3 ABG Hemoglobin ABG Oxyhemoglobin 86.3 L 81.7 L ABG Sodium 132.9 L 131.0 L ABG Potassium ABG Chloride ABG Glucose 189 H 161 H Carboxyhemoglobin 0.4 L Sodium Potassium Chloride Carbon Dioxide BUN Creatinine Glucose POC Glucose Lactic Acid 3.80 H* Calcium Phosphorus Magnesium Ferritin Direct Bilirubin AST ALT Alkaline Phosphatase Lactate Dehydrogenase Total Creatine Kinase C-Reactive Protein Total Protein Albumin Triglycerides Arterial Blood Glucose 189 H 161 H Arterial Blood Ionized Calcium 4.3 L 4.2 L Urine Creatinine Urine Chloride Vancomycin Trough Coronavirus (PCR) Crossmatch 06/18/20 06/18/20 06/18/20 05:39 05:39 05:39 WBC 26.2 H RBC Hgb Hct MCHC RDW Plt Count Lymph % (Auto) Cole % (Auto) Lymph # (Auto) Cole # (Auto) Eos # (Auto) Seg Neutrophils % Seg Neuts % (Manual) 90.0 H Lymphocytes % (Manual) 5.0 L Monocytes % (Manual) Basophils % (Manual) Nucleated RBC % Seg Neutrophils # Seg Neutrophils # Man 23.6 H Lymphocytes # (Manual) Monocytes # (Manual) 1.3 H Eosinophils # (Manual) Basophils # (Manual) PT INR APTT D-Dimer Heparin Anti-Xa Level ABG pH POC ABG pCO2 POC ABG pO2 ABG pO2 ABG HCO3 ABG Hemoglobin ABG Oxyhemoglobin ABG Sodium ABG Potassium ABG Chloride ABG Glucose Carboxyhemoglobin Sodium 135 L Potassium Chloride 97.5 L Carbon Dioxide 21 L BUN 39 H Creatinine 1.7 H D Glucose 168 H POC Glucose Lactic Acid 3.40 H* Calcium 7.2 L Phosphorus Magnesium Ferritin Direct Bilirubin AST ALT Alkaline Phosphatase Lactate Dehydrogenase Total Creatine Kinase C-Reactive Protein Total Protein Albumin Triglycerides Arterial Blood Glucose Arterial Blood Ionized Calcium Urine Creatinine Urine Chloride Vancomycin Trough Coronavirus (PCR) Crossmatch 06/18/20 06/18/20 06/18/20 07:24 09:00 10:10 WBC RBC Hgb Hct MCHC RDW Plt Count Lymph % (Auto) Cole % (Auto) Lymph # (Auto) Cole # (Auto) Eos # (Auto) Seg Neutrophils % Seg Neuts % (Manual) Lymphocytes % (Manual) Monocytes % (Manual) Basophils % (Manual) Nucleated RBC % Seg Neutrophils # Seg Neutrophils # Man Lymphocytes # (Manual) Monocytes # (Manual) Eosinophils # (Manual) Basophils # (Manual) PT INR APTT D-Dimer Heparin Anti-Xa Level ABG pH POC ABG pCO2 POC ABG pO2 ABG pO2 ABG HCO3 ABG Hemoglobin ABG Oxyhemoglobin ABG Sodium ABG Potassium ABG Chloride ABG Glucose Carboxyhemoglobin Sodium Potassium Chloride Carbon Dioxide BUN Creatinine Glucose POC Glucose Lactic Acid 2.90 H* 3.20 H* Calcium Phosphorus Magnesium Ferritin Direct Bilirubin AST ALT Alkaline Phosphatase Lactate Dehydrogenase Total Creatine Kinase C-Reactive Protein Total Protein Albumin Triglycerides Arterial Blood Glucose Arterial Blood Ionized Calcium Urine Creatinine Urine Chloride Vancomycin Trough Coronavirus (PCR) Positive A Crossmatch 06/18/20 06/18/20 06/18/20 11:58 14:43 15:00 WBC RBC Hgb Hct MCHC RDW Plt Count Lymph % (Auto) Cole % (Auto) Lymph # (Auto) Cole # (Auto) Eos # (Auto) Seg Neutrophils % Seg Neuts % (Manual) Lymphocytes % (Manual) Monocytes % (Manual) Basophils % (Manual) Nucleated RBC % Seg Neutrophils # Seg Neutrophils # Man Lymphocytes # (Manual) Monocytes # (Manual) Eosinophils # (Manual) Basophils # (Manual) PT INR APTT D-Dimer Heparin Anti-Xa Level ABG pH 7.303 L POC ABG pCO2 POC ABG pO2 82.3 L ABG pO2 ABG HCO3 ABG Hemoglobin ABG Oxyhemoglobin ABG Sodium 135.3 L ABG Potassium ABG Chloride ABG Glucose 215 H Carboxyhemoglobin 0.3 L Sodium Potassium Chloride Carbon Dioxide BUN Creatinine Glucose POC Glucose 209 H Lactic Acid Calcium Phosphorus Magnesium Ferritin Direct Bilirubin AST ALT Alkaline Phosphatase Lactate Dehydrogenase Total Creatine Kinase C-Reactive Protein Total Protein Albumin Triglycerides Arterial Blood Glucose 215 H Arterial Blood Ionized Calcium 4.2 L Urine Creatinine 192.4 H Urine Chloride 31.1 L Vancomycin Trough Coronavirus (PCR) Crossmatch 06/18/20 06/18/20 06/18/20 17:16 19:44 20:33 WBC RBC Hgb Hct MCHC RDW Plt Count Lymph % (Auto) Cole % (Auto) Lymph # (Auto) Cole # (Auto) Eos # (Auto) Seg Neutrophils % Seg Neuts % (Manual) Lymphocytes % (Manual) Monocytes % (Manual) Basophils % (Manual) Nucleated RBC % Seg Neutrophils # Seg Neutrophils # Man Lymphocytes # (Manual) Monocytes # (Manual) Eosinophils # (Manual) Basophils # (Manual) PT INR APTT D-Dimer Heparin Anti-Xa Level ABG pH POC ABG pCO2 POC ABG pO2 ABG pO2 ABG HCO3 ABG Hemoglobin ABG Oxyhemoglobin ABG Sodium ABG Potassium ABG Chloride ABG Glucose Carboxyhemoglobin Sodium Potassium Chloride Carbon Dioxide BUN Creatinine Glucose POC Glucose 182 H Lactic Acid 3.00 H* Calcium Phosphorus Magnesium 2.70 H Ferritin Direct Bilirubin AST ALT Alkaline Phosphatase Lactate Dehydrogenase Total Creatine Kinase C-Reactive Protein Total Protein Albumin Triglycerides Arterial Blood Glucose Arterial Blood Ionized Calcium Urine Creatinine Urine Chloride Vancomycin Trough Coronavirus (PCR) Crossmatch 06/18/20 06/19/20 06/19/20 23:43 04:00 04:00 WBC 31.6 H RBC Hgb Hct MCHC RDW Plt Count Lymph % (Auto) Cole % (Auto) Lymph # (Auto) Cole # (Auto) Eos # (Auto) Seg Neutrophils % Seg Neuts % (Manual) 98.0 H Lymphocytes % (Manual) 0.5 L Monocytes % (Manual) Basophils % (Manual) Nucleated RBC % Seg Neutrophils # Seg Neutrophils # Man 31.0 H Lymphocytes # (Manual) 0.2 L Monocytes # (Manual) Eosinophils # (Manual) Basophils # (Manual) PT INR APTT D-Dimer Heparin Anti-Xa Level ABG pH POC ABG pCO2 POC ABG pO2 ABG pO2 ABG HCO3 ABG Hemoglobin ABG Oxyhemoglobin ABG Sodium ABG Potassium ABG Chloride ABG Glucose Carboxyhemoglobin Sodium Potassium Chloride Carbon Dioxide BUN 56 H Creatinine 1.6 H Glucose 176 H POC Glucose 149 H Lactic Acid Calcium 7.0 L Phosphorus Magnesium Ferritin Direct Bilirubin AST 244 H ALT 159 H Alkaline Phosphatase Lactate Dehydrogenase Total Creatine Kinase C-Reactive Protein Total Protein 4.9 L D Albumin 2.5 L Triglycerides Arterial Blood Glucose Arterial Blood Ionized Calcium Urine Creatinine Urine Chloride Vancomycin Trough Coronavirus (PCR) Crossmatch 06/19/20 06/19/20 06/19/20 04:00 05:44 11:42 WBC RBC Hgb Hct MCHC RDW Plt Count Lymph % (Auto) Cole % (Auto) Lymph # (Auto) Cole # (Auto) Eos # (Auto) Seg Neutrophils % Seg Neuts % (Manual) Lymphocytes % (Manual) Monocytes % (Manual) Basophils % (Manual) Nucleated RBC % Seg Neutrophils # Seg Neutrophils # Man Lymphocytes # (Manual) Monocytes # (Manual) Eosinophils # (Manual) Basophils # (Manual) PT INR APTT D-Dimer Heparin Anti-Xa Level ABG pH 7.265 L POC ABG pCO2 51.8 H POC ABG pO2 65.1 L ABG pO2 ABG HCO3 ABG Hemoglobin ABG Oxyhemoglobin ABG Sodium ABG Potassium ABG Chloride ABG Glucose 184 H Carboxyhemoglobin Sodium Potassium Chloride Carbon Dioxide BUN Creatinine Glucose POC Glucose 156 H 191 H Lactic Acid Calcium Phosphorus Magnesium Ferritin Direct Bilirubin AST ALT Alkaline Phosphatase Lactate Dehydrogenase Total Creatine Kinase C-Reactive Protein Total Protein Albumin Triglycerides Arterial Blood Glucose 184 H Arterial Blood Ionized Calcium 4.3 L Urine Creatinine Urine Chloride Vancomycin Trough Coronavirus (PCR) Crossmatch 06/19/20 06/19/20 06/19/20 12:30 17:16 18:36 WBC RBC Hgb Hct MCHC RDW Plt Count Lymph % (Auto) Cole % (Auto) Lymph # (Auto) Cole # (Auto) Eos # (Auto) Seg Neutrophils % Seg Neuts % (Manual) Lymphocytes % (Manual) Monocytes % (Manual) Basophils % (Manual) Nucleated RBC % Seg Neutrophils # Seg Neutrophils # Man Lymphocytes # (Manual) Monocytes # (Manual) Eosinophils # (Manual) Basophils # (Manual) PT 16.4 H INR 1.32 H APTT D-Dimer Heparin Anti-Xa Level ABG pH 7.088 L POC ABG pCO2 78.1 H POC ABG pO2 208.3 H ABG pO2 ABG HCO3 ABG Hemoglobin ABG Oxyhemoglobin 98.3 H ABG Sodium ABG Potassium 5.0 H ABG Chloride ABG Glucose 182 H Carboxyhemoglobin 0.4 L Sodium Potassium Chloride Carbon Dioxide BUN Creatinine Glucose POC Glucose 154 H Lactic Acid Calcium Phosphorus Magnesium Ferritin Direct Bilirubin AST ALT Alkaline Phosphatase Lactate Dehydrogenase Total Creatine Kinase C-Reactive Protein Total Protein Albumin Triglycerides Arterial Blood Glucose 182 H Arterial Blood Ionized Calcium 4.3 L Urine Creatinine Urine Chloride Vancomycin Trough Coronavirus (PCR) Crossmatch 06/19/20 06/20/20 06/20/20 23:32 03:00 05:19 WBC RBC Hgb Hct MCHC RDW Plt Count Lymph % (Auto) Cole % (Auto) Lymph # (Auto) Cole # (Auto) Eos # (Auto) Seg Neutrophils % Seg Neuts % (Manual) Lymphocytes % (Manual) Monocytes % (Manual) Basophils % (Manual) Nucleated RBC % Seg Neutrophils # Seg Neutrophils # Man Lymphocytes # (Manual) Monocytes # (Manual) Eosinophils # (Manual) Basophils # (Manual) PT INR APTT D-Dimer Heparin Anti-Xa Level 0.77 H ABG pH POC ABG pCO2 POC ABG pO2 ABG pO2 ABG HCO3 ABG Hemoglobin ABG Oxyhemoglobin ABG Sodium ABG Potassium ABG Chloride ABG Glucose Carboxyhemoglobin Sodium Potassium Chloride Carbon Dioxide BUN Creatinine Glucose POC Glucose 201 H 190 H Lactic Acid Calcium Phosphorus Magnesium Ferritin Direct Bilirubin AST ALT Alkaline Phosphatase Lactate Dehydrogenase Total Creatine Kinase C-Reactive Protein Total Protein Albumin Triglycerides Arterial Blood Glucose Arterial Blood Ionized Calcium Urine Creatinine Urine Chloride Vancomycin Trough Coronavirus (PCR) Crossmatch 06/20/20 06/20/20 06/20/20 08:25 08:25 11:36 WBC RBC Hgb Hct MCHC RDW Plt Count Lymph % (Auto) Cole % (Auto) Lymph # (Auto) Cole # (Auto) Eos # (Auto) Seg Neutrophils % Seg Neuts % (Manual) Lymphocytes % (Manual) Monocytes % (Manual) Basophils % (Manual) Nucleated RBC % Seg Neutrophils # Seg Neutrophils # Man Lymphocytes # (Manual) Monocytes # (Manual) Eosinophils # (Manual) Basophils # (Manual) PT INR APTT D-Dimer Heparin Anti-Xa Level ABG pH POC ABG pCO2 POC ABG pO2 ABG pO2 ABG HCO3 ABG Hemoglobin ABG Oxyhemoglobin ABG Sodium ABG Potassium ABG Chloride ABG Glucose Carboxyhemoglobin Sodium 135 L Potassium 5.4 H Chloride 109.2 H Carbon Dioxide 19 L BUN 68 H Creatinine 2.5 H D Glucose 201 H POC Glucose 184 H Lactic Acid Calcium 5.5 L* D Phosphorus Magnesium Ferritin Direct Bilirubin AST 123 H ALT 86 H Alkaline Phosphatase Lactate Dehydrogenase Total Creatine Kinase C-Reactive Protein Total Protein 4.6 L Albumin 1.5 L Triglycerides Arterial Blood Glucose Arterial Blood Ionized Calcium Urine Creatinine Urine Chloride Vancomycin Trough 22.7 H Coronavirus (PCR) Crossmatch 06/20/20 06/20/20 06/20/20 11:40 17:28 20:00 WBC RBC Hgb Hct MCHC RDW Plt Count Lymph % (Auto) Cole % (Auto) Lymph # (Auto) Cole # (Auto) Eos # (Auto) Seg Neutrophils % Seg Neuts % (Manual) Lymphocytes % (Manual) Monocytes % (Manual) Basophils % (Manual) Nucleated RBC % Seg Neutrophils # Seg Neutrophils # Man Lymphocytes # (Manual) Monocytes # (Manual) Eosinophils # (Manual) Basophils # (Manual) PT INR APTT D-Dimer Heparin Anti-Xa Level 0.89 H ABG pH 7.099 L POC ABG pCO2 61.1 H POC ABG pO2 ABG pO2 ABG HCO3 ABG Hemoglobin ABG Oxyhemoglobin ABG Sodium ABG Potassium 5.0 H ABG Chloride 111.0 H ABG Glucose 200 H Carboxyhemoglobin 0.4 L Sodium Potassium Chloride Carbon Dioxide BUN Creatinine Glucose POC Glucose 165 H Lactic Acid Calcium Phosphorus Magnesium Ferritin Direct Bilirubin AST ALT Alkaline Phosphatase Lactate Dehydrogenase Total Creatine Kinase C-Reactive Protein Total Protein Albumin Triglycerides Arterial Blood Glucose 200 H Arterial Blood Ionized Calcium 4.2 L Urine Creatinine Urine Chloride Vancomycin Trough Coronavirus (PCR) Crossmatch 06/20/20 06/21/20 06/21/20 23:29 05:00 05:20 WBC RBC Hgb Hct MCHC RDW Plt Count Lymph % (Auto) Cole % (Auto) Lymph # (Auto) Cole # (Auto) Eos # (Auto) Seg Neutrophils % Seg Neuts % (Manual) Lymphocytes % (Manual) Monocytes % (Manual) Basophils % (Manual) Nucleated RBC % Seg Neutrophils # Seg Neutrophils # Man Lymphocytes # (Manual) Monocytes # (Manual) Eosinophils # (Manual) Basophils # (Manual) PT INR APTT D-Dimer Heparin Anti-Xa Level ABG pH POC ABG pCO2 POC ABG pO2 ABG pO2 ABG HCO3 ABG Hemoglobin ABG Oxyhemoglobin ABG Sodium ABG Potassium ABG Chloride ABG Glucose Carboxyhemoglobin Sodium Potassium Chloride 112.0 H Carbon Dioxide 20 L BUN 92 H Creatinine 3.9 H D Glucose 214 H POC Glucose 145 H 191 H Lactic Acid Calcium 6.5 L D Phosphorus Magnesium Ferritin Direct Bilirubin AST 98 H ALT 84 H Alkaline Phosphatase Lactate Dehydrogenase Total Creatine Kinase C-Reactive Protein Total Protein 4.6 L Albumin 2.1 L Triglycerides 180 H Arterial Blood Glucose Arterial Blood Ionized Calcium Urine Creatinine Urine Chloride Vancomycin Trough Coronavirus (PCR) Crossmatch 06/21/20 06/21/20 06/21/20 08:56 11:12 12:43 WBC RBC Hgb Hct MCHC RDW Plt Count Lymph % (Auto) Cole % (Auto) Lymph # (Auto) Cole # (Auto) Eos # (Auto) Seg Neutrophils % Seg Neuts % (Manual) Lymphocytes % (Manual) Monocytes % (Manual) Basophils % (Manual) Nucleated RBC % Seg Neutrophils # Seg Neutrophils # Man Lymphocytes # (Manual) Monocytes # (Manual) Eosinophils # (Manual) Basophils # (Manual) PT INR APTT D-Dimer Heparin Anti-Xa Level 0.28 L ABG pH 7.184 L POC ABG pCO2 48.3 H POC ABG pO2 172.1 H ABG pO2 ABG HCO3 ABG Hemoglobin ABG Oxyhemoglobin 98.7 H ABG Sodium ABG Potassium 4.9 H ABG Chloride 112.0 H ABG Glucose 196 H Carboxyhemoglobin 0.2 L Sodium Potassium Chloride Carbon Dioxide BUN Creatinine Glucose POC Glucose 177 H Lactic Acid Calcium Phosphorus Magnesium Ferritin Direct Bilirubin AST ALT Alkaline Phosphatase Lactate Dehydrogenase Total Creatine Kinase C-Reactive Protein Total Protein Albumin Triglycerides Arterial Blood Glucose 196 H Arterial Blood Ionized Calcium 4.1 L Urine Creatinine Urine Chloride Vancomycin Trough Coronavirus (PCR) Crossmatch 06/21/20 06/21/20 06/22/20 16:31 Unknown 00:12 WBC RBC Hgb Hct MCHC RDW Plt Count Lymph % (Auto) Cole % (Auto) Lymph # (Auto) Cole # (Auto) Eos # (Auto) Seg Neutrophils % Seg Neuts % (Manual) Lymphocytes % (Manual) Monocytes % (Manual) Basophils % (Manual) Nucleated RBC % Seg Neutrophils # Seg Neutrophils # Man Lymphocytes # (Manual) Monocytes # (Manual) Eosinophils # (Manual) Basophils # (Manual) PT INR APTT D-Dimer Heparin Anti-Xa Level 0.78 H ABG pH POC ABG pCO2 POC ABG pO2 ABG pO2 ABG HCO3 ABG Hemoglobin ABG Oxyhemoglobin ABG Sodium ABG Potassium ABG Chloride ABG Glucose Carboxyhemoglobin Sodium Potassium Chloride Carbon Dioxide BUN Creatinine Glucose POC Glucose 150 H 173 H Lactic Acid Calcium Phosphorus Magnesium Ferritin Direct Bilirubin AST ALT Alkaline Phosphatase Lactate Dehydrogenase Total Creatine Kinase C-Reactive Protein Total Protein Albumin Triglycerides Arterial Blood Glucose Arterial Blood Ionized Calcium Urine Creatinine Urine Chloride Vancomycin Trough Coronavirus (PCR) Crossmatch 06/22/20 06/22/20 06/22/20 04:00 05:04 05:30 WBC 33.9 H RBC Hgb 11.7 L Hct 35.2 L MCHC RDW 15.8 H Plt Count Lymph % (Auto) Cole % (Auto) Lymph # (Auto) Cole # (Auto) Eos # (Auto) Seg Neutrophils % Seg Neuts % (Manual) 93.0 H Lymphocytes % (Manual) 5.0 L Monocytes % (Manual) Basophils % (Manual) Nucleated RBC % Seg Neutrophils # Seg Neutrophils # Man 31.5 H Lymphocytes # (Manual) Monocytes # (Manual) Eosinophils # (Manual) Basophils # (Manual) PT INR APTT D-Dimer Heparin Anti-Xa Level ABG pH 7.169 L POC ABG pCO2 POC ABG pO2 ABG pO2 ABG HCO3 ABG Hemoglobin ABG Oxyhemoglobin ABG Sodium ABG Potassium 5.1 H ABG Chloride 112.0 H ABG Glucose 186 H Carboxyhemoglobin 0.3 L Sodium Potassium Chloride Carbon Dioxide BUN Creatinine Glucose POC Glucose 161 H Lactic Acid Calcium Phosphorus Magnesium Ferritin Direct Bilirubin AST ALT Alkaline Phosphatase Lactate Dehydrogenase Total Creatine Kinase C-Reactive Protein Total Protein Albumin Triglycerides Arterial Blood Glucose 186 H Arterial Blood Ionized Calcium 4.1 L Urine Creatinine Urine Chloride Vancomycin Trough Coronavirus (PCR) Crossmatch 06/22/20 06/22/20 06/22/20 05:30 11:39 13:27 WBC RBC Hgb Hct MCHC RDW Plt Count Lymph % (Auto) Cole % (Auto) Lymph # (Auto) Cole # (Auto) Eos # (Auto) Seg Neutrophils % Seg Neuts % (Manual) Lymphocytes % (Manual) Monocytes % (Manual) Basophils % (Manual) Nucleated RBC % Seg Neutrophils # Seg Neutrophils # Man Lymphocytes # (Manual) Monocytes # (Manual) Eosinophils # (Manual) Basophils # (Manual) PT INR APTT D-Dimer Heparin Anti-Xa Level ABG pH POC ABG pCO2 POC ABG pO2 ABG pO2 ABG HCO3 ABG Hemoglobin ABG Oxyhemoglobin ABG Sodium ABG Potassium ABG Chloride ABG Glucose Carboxyhemoglobin Sodium Potassium 5.7 H Chloride 111.3 H Carbon Dioxide 18 L BUN 112 H Creatinine 5.0 H Glucose 173 H POC Glucose 172 H 176 H Lactic Acid Calcium 6.7 L Phosphorus Magnesium Ferritin Direct Bilirubin AST ALT Alkaline Phosphatase Lactate Dehydrogenase Total Creatine Kinase C-Reactive Protein Total Protein Albumin Triglycerides Arterial Blood Glucose Arterial Blood Ionized Calcium Urine Creatinine Urine Chloride Vancomycin Trough Coronavirus (PCR) Crossmatch 06/22/20 06/22/20 06/22/20 14:37 17:00 17:40 WBC RBC Hgb Hct MCHC RDW Plt Count Lymph % (Auto) Cole % (Auto) Lymph # (Auto) Cole # (Auto) Eos # (Auto) Seg Neutrophils % Seg Neuts % (Manual) Lymphocytes % (Manual) Monocytes % (Manual) Basophils % (Manual) Nucleated RBC % Seg Neutrophils # Seg Neutrophils # Man Lymphocytes # (Manual) Monocytes # (Manual) Eosinophils # (Manual) Basophils # (Manual) PT INR APTT D-Dimer Heparin Anti-Xa Level 1.32 H ABG pH POC ABG pCO2 POC ABG pO2 ABG pO2 ABG HCO3 ABG Hemoglobin ABG Oxyhemoglobin ABG Sodium ABG Potassium ABG Chloride ABG Glucose Carboxyhemoglobin Sodium Potassium Chloride Carbon Dioxide BUN Creatinine Glucose POC Glucose 171 H Lactic Acid Calcium Phosphorus Magnesium Ferritin Direct Bilirubin AST ALT Alkaline Phosphatase Lactate Dehydrogenase Total Creatine Kinase C-Reactive Protein 5.30 H Total Protein Albumin Triglycerides Arterial Blood Glucose Arterial Blood Ionized Calcium Urine Creatinine Urine Chloride Vancomycin Trough Coronavirus (PCR) Crossmatch 06/22/20 06/23/20 06/23/20 23:36 02:13 02:41 WBC RBC Hgb Hct MCHC RDW Plt Count Lymph % (Auto) Cole % (Auto) Lymph # (Auto) Cole # (Auto) Eos # (Auto) Seg Neutrophils % Seg Neuts % (Manual) Lymphocytes % (Manual) Monocytes % (Manual) Basophils % (Manual) Nucleated RBC % Seg Neutrophils # Seg Neutrophils # Man Lymphocytes # (Manual) Monocytes # (Manual) Eosinophils # (Manual) Basophils # (Manual) PT INR APTT D-Dimer Heparin Anti-Xa Level 0.21 L ABG pH 7.318 L POC ABG pCO2 POC ABG pO2 157.5 H ABG pO2 ABG HCO3 ABG Hemoglobin ABG Oxyhemoglobin ABG Sodium 135.6 L ABG Potassium 4.6 H ABG Chloride 110.0 H ABG Glucose 169 H Carboxyhemoglobin Sodium Potassium Chloride Carbon Dioxide BUN Creatinine Glucose POC Glucose 155 H Lactic Acid Calcium Phosphorus Magnesium Ferritin Direct Bilirubin AST ALT Alkaline Phosphatase Lactate Dehydrogenase Total Creatine Kinase C-Reactive Protein Total Protein Albumin Triglycerides Arterial Blood Glucose 169 H Arterial Blood Ionized Calcium Urine Creatinine Urine Chloride Vancomycin Trough Coronavirus (PCR) Crossmatch 06/23/20 06/23/20 06/23/20 04:00 04:00 05:24 WBC 27.4 H RBC Hgb 11.3 L Hct 33.8 L MCHC RDW Plt Count Lymph % (Auto) Cole % (Auto) Lymph # (Auto) Cole # (Auto) Eos # (Auto) Seg Neutrophils % Seg Neuts % (Manual) 93.0 H Lymphocytes % (Manual) 1.0 L Monocytes % (Manual) Basophils % (Manual) Nucleated RBC % 1.0 H Seg Neutrophils # Seg Neutrophils # Man 25.5 H Lymphocytes # (Manual) 0.3 L Monocytes # (Manual) 1.1 H Eosinophils # (Manual) Basophils # (Manual) PT INR APTT D-Dimer Heparin Anti-Xa Level ABG pH POC ABG pCO2 POC ABG pO2 ABG pO2 ABG HCO3 ABG Hemoglobin ABG Oxyhemoglobin ABG Sodium ABG Potassium ABG Chloride ABG Glucose Carboxyhemoglobin Sodium Potassium Chloride 107.6 H Carbon Dioxide 20 L BUN 100 H Creatinine 4.7 H Glucose 168 H POC Glucose 151 H Lactic Acid Calcium Phosphorus Magnesium Ferritin Direct Bilirubin AST ALT Alkaline Phosphatase Lactate Dehydrogenase Total Creatine Kinase C-Reactive Protein Total Protein Albumin Triglycerides Arterial Blood Glucose Arterial Blood Ionized Calcium Urine Creatinine Urine Chloride Vancomycin Trough Coronavirus (PCR) Crossmatch 06/23/20 06/23/20 06/23/20 11:30 17:18 23:50 WBC RBC Hgb Hct MCHC RDW Plt Count Lymph % (Auto) Cole % (Auto) Lymph # (Auto) Cole # (Auto) Eos # (Auto) Seg Neutrophils % Seg Neuts % (Manual) Lymphocytes % (Manual) Monocytes % (Manual) Basophils % (Manual) Nucleated RBC % Seg Neutrophils # Seg Neutrophils # Man Lymphocytes # (Manual) Monocytes # (Manual) Eosinophils # (Manual) Basophils # (Manual) PT INR APTT D-Dimer Heparin Anti-Xa Level ABG pH POC ABG pCO2 POC ABG pO2 ABG pO2 ABG HCO3 ABG Hemoglobin ABG Oxyhemoglobin ABG Sodium ABG Potassium ABG Chloride ABG Glucose Carboxyhemoglobin Sodium Potassium Chloride Carbon Dioxide BUN Creatinine Glucose POC Glucose 157 H 156 H 162 H Lactic Acid Calcium Phosphorus Magnesium Ferritin Direct Bilirubin AST ALT Alkaline Phosphatase Lactate Dehydrogenase Total Creatine Kinase C-Reactive Protein Total Protein Albumin Triglycerides Arterial Blood Glucose Arterial Blood Ionized Calcium Urine Creatinine Urine Chloride Vancomycin Trough Coronavirus (PCR) Crossmatch 06/24/20 06/24/20 06/24/20 04:41 05:57 06:30 WBC 34.3 H RBC Hgb 10.9 L Hct 32.6 L MCHC RDW Plt Count Lymph % (Auto) 2.0 L Cole % (Auto) Lymph # (Auto) 0.7 L Cole # (Auto) 1.2 H Eos # (Auto) Seg Neutrophils % Seg Neuts % (Manual) 96.0 H Lymphocytes % (Manual) 3.0 L Monocytes % (Manual) Basophils % (Manual) Nucleated RBC % Seg Neutrophils # 32.3 H Seg Neutrophils # Man 32.9 H Lymphocytes # (Manual) 1.0 L Monocytes # (Manual) Eosinophils # (Manual) Basophils # (Manual) PT INR APTT D-Dimer Heparin Anti-Xa Level ABG pH POC ABG pCO2 POC ABG pO2 71.1 L ABG pO2 ABG HCO3 ABG Hemoglobin ABG Oxyhemoglobin 92.4 L ABG Sodium 115.6 L ABG Potassium ABG Chloride ABG Glucose 159 H Carboxyhemoglobin Sodium Potassium Chloride Carbon Dioxide BUN Creatinine Glucose POC Glucose 143 H Lactic Acid Calcium Phosphorus Magnesium Ferritin Direct Bilirubin AST ALT Alkaline Phosphatase Lactate Dehydrogenase Total Creatine Kinase C-Reactive Protein Total Protein Albumin Triglycerides Arterial Blood Glucose 159 H Arterial Blood Ionized Calcium 4.2 L Urine Creatinine Urine Chloride Vancomycin Trough Coronavirus (PCR) Crossmatch 06/24/20 06/24/20 06/24/20 07:03 09:37 11:56 WBC RBC Hgb Hct MCHC RDW Plt Count Lymph % (Auto) Cole % (Auto) Lymph # (Auto) Cole # (Auto) Eos # (Auto) Seg Neutrophils % Seg Neuts % (Manual) Lymphocytes % (Manual) Monocytes % (Manual) Basophils % (Manual) Nucleated RBC % Seg Neutrophils # Seg Neutrophils # Man Lymphocytes # (Manual) Monocytes # (Manual) Eosinophils # (Manual) Basophils # (Manual) PT INR APTT D-Dimer Heparin Anti-Xa Level 0.26 L ABG pH POC ABG pCO2 POC ABG pO2 ABG pO2 ABG HCO3 ABG Hemoglobin ABG Oxyhemoglobin ABG Sodium ABG Potassium ABG Chloride ABG Glucose Carboxyhemoglobin Sodium Potassium 5.1 H Chloride Carbon Dioxide BUN 103 H Creatinine 5.0 H Glucose 163 H POC Glucose 149 H Lactic Acid Calcium 7.6 L Phosphorus Magnesium Ferritin Direct Bilirubin AST ALT Alkaline Phosphatase Lactate Dehydrogenase Total Creatine Kinase C-Reactive Protein Total Protein Albumin Triglycerides Arterial Blood Glucose Arterial Blood Ionized Calcium Urine Creatinine Urine Chloride Vancomycin Trough Coronavirus (PCR) Crossmatch 06/24/20 06/25/20 06/25/20 18:09 01:05 03:00 WBC RBC Hgb 10.6 L Hct 32.1 L MCHC RDW Plt Count Lymph % (Auto) Cole % (Auto) Lymph # (Auto) Cole # (Auto) Eos # (Auto) Seg Neutrophils % Seg Neuts % (Manual) Lymphocytes % (Manual) Monocytes % (Manual) Basophils % (Manual) Nucleated RBC % Seg Neutrophils # Seg Neutrophils # Man Lymphocytes # (Manual) Monocytes # (Manual) Eosinophils # (Manual) Basophils # (Manual) PT INR APTT D-Dimer Heparin Anti-Xa Level ABG pH POC ABG pCO2 POC ABG pO2 ABG pO2 ABG HCO3 ABG Hemoglobin ABG Oxyhemoglobin ABG Sodium ABG Potassium ABG Chloride ABG Glucose Carboxyhemoglobin Sodium Potassium Chloride Carbon Dioxide BUN Creatinine Glucose POC Glucose 141 H 137 H Lactic Acid Calcium Phosphorus Magnesium Ferritin Direct Bilirubin AST ALT Alkaline Phosphatase Lactate Dehydrogenase Total Creatine Kinase C-Reactive Protein Total Protein Albumin Triglycerides Arterial Blood Glucose Arterial Blood Ionized Calcium Urine Creatinine Urine Chloride Vancomycin Trough Coronavirus (PCR) Crossmatch 06/25/20 06/25/20 06/25/20 03:48 05:17 12:08 WBC RBC Hgb Hct MCHC RDW Plt Count Lymph % (Auto) Cole % (Auto) Lymph # (Auto) Cole # (Auto) Eos # (Auto) Seg Neutrophils % Seg Neuts % (Manual) Lymphocytes % (Manual) Monocytes % (Manual) Basophils % (Manual) Nucleated RBC % Seg Neutrophils # Seg Neutrophils # Man Lymphocytes # (Manual) Monocytes # (Manual) Eosinophils # (Manual) Basophils # (Manual) PT INR APTT D-Dimer Heparin Anti-Xa Level ABG pH POC ABG pCO2 29.4 L POC ABG pO2 67.1 L ABG pO2 ABG HCO3 ABG Hemoglobin 11.5 L ABG Oxyhemoglobin ABG Sodium 124.1 L ABG Potassium 4.6 H ABG Chloride ABG Glucose 159 H Carboxyhemoglobin Sodium Potassium Chloride Carbon Dioxide BUN Creatinine Glucose POC Glucose 149 H 150 H Lactic Acid Calcium Phosphorus Magnesium Ferritin Direct Bilirubin AST ALT Alkaline Phosphatase Lactate Dehydrogenase Total Creatine Kinase C-Reactive Protein Total Protein Albumin Triglycerides Arterial Blood Glucose 159 H Arterial Blood Ionized Calcium 4.2 L Urine Creatinine Urine Chloride Vancomycin Trough Coronavirus (PCR) Crossmatch 06/25/20 06/25/20 06/25/20 16:27 16:35 17:27 WBC RBC Hgb Hct MCHC RDW Plt Count Lymph % (Auto) Cole % (Auto) Lymph # (Auto) Cole # (Auto) Eos # (Auto) Seg Neutrophils % Seg Neuts % (Manual) Lymphocytes % (Manual) Monocytes % (Manual) Basophils % (Manual) Nucleated RBC % Seg Neutrophils # Seg Neutrophils # Man Lymphocytes # (Manual) Monocytes # (Manual) Eosinophils # (Manual) Basophils # (Manual) PT INR APTT D-Dimer Heparin Anti-Xa Level < 0.10 L ABG pH POC ABG pCO2 POC ABG pO2 ABG pO2 ABG HCO3 ABG Hemoglobin ABG Oxyhemoglobin ABG Sodium ABG Potassium ABG Chloride ABG Glucose Carboxyhemoglobin Sodium Potassium Chloride Carbon Dioxide BUN Creatinine Glucose POC Glucose 143 H 156 H Lactic Acid Calcium Phosphorus Magnesium Ferritin Direct Bilirubin AST ALT Alkaline Phosphatase Lactate Dehydrogenase Total Creatine Kinase C-Reactive Protein Total Protein Albumin Triglycerides Arterial Blood Glucose Arterial Blood Ionized Calcium Urine Creatinine Urine Chloride Vancomycin Trough Coronavirus (PCR) Crossmatch 06/25/20 06/25/20 06/25/20 20:00 20:55 23:10 WBC 32.7 H RBC 3.06 L Hgb 9.0 L 9.5 L Hct 26.7 L 28.6 L MCHC RDW Plt Count Lymph % (Auto) Cole % (Auto) Lymph # (Auto) Cole # (Auto) Eos # (Auto) Seg Neutrophils % Seg Neuts % (Manual) Lymphocytes % (Manual) 2.0 L Monocytes % (Manual) Basophils % (Manual) Nucleated RBC % Seg Neutrophils # Seg Neutrophils # Man 30.7 H Lymphocytes # (Manual) 0.7 L Monocytes # (Manual) 1.3 H Eosinophils # (Manual) Basophils # (Manual) PT 17.7 H INR 1.47 H APTT 65.8 H* D-Dimer Heparin Anti-Xa Level ABG pH POC ABG pCO2 POC ABG pO2 ABG pO2 ABG HCO3 ABG Hemoglobin ABG Oxyhemoglobin ABG Sodium ABG Potassium ABG Chloride ABG Glucose Carboxyhemoglobin Sodium Potassium Chloride Carbon Dioxide BUN Creatinine Glucose POC Glucose Lactic Acid Calcium Phosphorus Magnesium Ferritin Direct Bilirubin AST ALT Alkaline Phosphatase Lactate Dehydrogenase Total Creatine Kinase C-Reactive Protein Total Protein Albumin Triglycerides Arterial Blood Glucose Arterial Blood Ionized Calcium Urine Creatinine Urine Chloride Vancomycin Trough Coronavirus (PCR) Crossmatch 06/25/20 06/26/20 06/26/20 23:14 01:30 03:25 WBC RBC Hgb Hct MCHC RDW Plt Count Lymph % (Auto) Cole % (Auto) Lymph # (Auto) Cole # (Auto) Eos # (Auto) Seg Neutrophils % Seg Neuts % (Manual) Lymphocytes % (Manual) Monocytes % (Manual) Basophils % (Manual) Nucleated RBC % Seg Neutrophils # Seg Neutrophils # Man Lymphocytes # (Manual) Monocytes # (Manual) Eosinophils # (Manual) Basophils # (Manual) PT INR APTT D-Dimer Heparin Anti-Xa Level < 0.10 L ABG pH POC ABG pCO2 POC ABG pO2 ABG pO2 ABG HCO3 ABG Hemoglobin 11.8 L ABG Oxyhemoglobin ABG Sodium 127.1 L ABG Potassium 5.4 H ABG Chloride ABG Glucose 155 H Carboxyhemoglobin 0.3 L Sodium Potassium Chloride Carbon Dioxide BUN Creatinine Glucose POC Glucose 148 H Lactic Acid Calcium Phosphorus Magnesium Ferritin Direct Bilirubin AST ALT Alkaline Phosphatase Lactate Dehydrogenase Total Creatine Kinase C-Reactive Protein Total Protein Albumin Triglycerides Arterial Blood Glucose 155 H Arterial Blood Ionized Calcium 4.2 L Urine Creatinine Urine Chloride Vancomycin Trough Coronavirus (PCR) Crossmatch 06/26/20 06/26/20 06/26/20 03:59 05:14 05:47 WBC 36.5 H RBC 3.26 L Hgb 9.7 L Hct 28.2 L MCHC RDW Plt Count Lymph % (Auto) Cole % (Auto) Lymph # (Auto) Cole # (Auto) Eos # (Auto) Seg Neutrophils % Seg Neuts % (Manual) 92.0 H Lymphocytes % (Manual) 4.0 L Monocytes % (Manual) Basophils % (Manual) Nucleated RBC % Seg Neutrophils # Seg Neutrophils # Man 33.6 H Lymphocytes # (Manual) Monocytes # (Manual) Eosinophils # (Manual) Basophils # (Manual) PT INR APTT D-Dimer Heparin Anti-Xa Level ABG pH POC ABG pCO2 POC ABG pO2 ABG pO2 ABG HCO3 ABG Hemoglobin ABG Oxyhemoglobin ABG Sodium ABG Potassium ABG Chloride ABG Glucose Carboxyhemoglobin Sodium Potassium 5.9 H Chloride Carbon Dioxide 20 L BUN 144 H Creatinine 6.4 H Glucose 149 H POC Glucose 128 H Lactic Acid Calcium 7.6 L Phosphorus Magnesium Ferritin Direct Bilirubin AST ALT Alkaline Phosphatase Lactate Dehydrogenase Total Creatine Kinase C-Reactive Protein Total Protein Albumin Triglycerides Arterial Blood Glucose Arterial Blood Ionized Calcium Urine Creatinine Urine Chloride Vancomycin Trough Coronavirus (PCR) Crossmatch 06/26/20 06/26/20 06/26/20 05:47 12:47 17:42 WBC RBC Hgb Hct MCHC RDW Plt Count Lymph % (Auto) Cole % (Auto) Lymph # (Auto) Cole # (Auto) Eos # (Auto) Seg Neutrophils % Seg Neuts % (Manual) Lymphocytes % (Manual) Monocytes % (Manual) Basophils % (Manual) Nucleated RBC % Seg Neutrophils # Seg Neutrophils # Man Lymphocytes # (Manual) Monocytes # (Manual) Eosinophils # (Manual) Basophils # (Manual) PT 17.4 H INR 1.44 H APTT D-Dimer Heparin Anti-Xa Level ABG pH POC ABG pCO2 POC ABG pO2 ABG pO2 ABG HCO3 ABG Hemoglobin ABG Oxyhemoglobin ABG Sodium ABG Potassium ABG Chloride ABG Glucose Carboxyhemoglobin Sodium Potassium Chloride Carbon Dioxide BUN Creatinine Glucose POC Glucose 124 H 127 H Lactic Acid Calcium Phosphorus Magnesium Ferritin Direct Bilirubin AST ALT Alkaline Phosphatase Lactate Dehydrogenase Total Creatine Kinase C-Reactive Protein Total Protein Albumin Triglycerides Arterial Blood Glucose Arterial Blood Ionized Calcium Urine Creatinine Urine Chloride Vancomycin Trough Coronavirus (PCR) Crossmatch 06/26/20 06/27/20 06/27/20 23:30 03:32 04:00 WBC RBC Hgb 8.7 L Hct 26.4 L MCHC RDW Plt Count Lymph % (Auto) Cole % (Auto) Lymph # (Auto) Cole # (Auto) Eos # (Auto) Seg Neutrophils % Seg Neuts % (Manual) Lymphocytes % (Manual) Monocytes % (Manual) Basophils % (Manual) Nucleated RBC % Seg Neutrophils # Seg Neutrophils # Man Lymphocytes # (Manual) Monocytes # (Manual) Eosinophils # (Manual) Basophils # (Manual) PT INR APTT D-Dimer Heparin Anti-Xa Level ABG pH 7.298 L POC ABG pCO2 POC ABG pO2 ABG pO2 ABG HCO3 ABG Hemoglobin 9.6 L ABG Oxyhemoglobin ABG Sodium 124.4 L ABG Potassium 6.6 H ABG Chloride ABG Glucose 136 H Carboxyhemoglobin Sodium Potassium Chloride Carbon Dioxide BUN Creatinine Glucose POC Glucose 123 H Lactic Acid Calcium Phosphorus Magnesium Ferritin Direct Bilirubin AST ALT Alkaline Phosphatase Lactate Dehydrogenase Total Creatine Kinase C-Reactive Protein Total Protein Albumin Triglycerides Arterial Blood Glucose 136 H Arterial Blood Ionized Calcium 4.1 L Urine Creatinine Urine Chloride Vancomycin Trough Coronavirus (PCR) Crossmatch 06/27/20 06/27/20 06/27/20 05:26 10:14 11:58 WBC RBC Hgb Hct MCHC RDW Plt Count Lymph % (Auto) Cole % (Auto) Lymph # (Auto) Cole # (Auto) Eos # (Auto) Seg Neutrophils % Seg Neuts % (Manual) Lymphocytes % (Manual) Monocytes % (Manual) Basophils % (Manual) Nucleated RBC % Seg Neutrophils # Seg Neutrophils # Man Lymphocytes # (Manual) Monocytes # (Manual) Eosinophils # (Manual) Basophils # (Manual) PT INR APTT D-Dimer Heparin Anti-Xa Level ABG pH POC ABG pCO2 POC ABG pO2 ABG pO2 ABG HCO3 ABG Hemoglobin ABG Oxyhemoglobin ABG Sodium ABG Potassium ABG Chloride ABG Glucose Carboxyhemoglobin Sodium 136 L Potassium 7.0 H* Chloride 97.8 L Carbon Dioxide BUN 172 H Creatinine 7.4 H Glucose 129 H POC Glucose 124 H 115 H Lactic Acid Calcium 7.6 L Phosphorus Magnesium Ferritin Direct Bilirubin AST ALT Alkaline Phosphatase Lactate Dehydrogenase Total Creatine Kinase C-Reactive Protein Total Protein Albumin Triglycerides Arterial Blood Glucose Arterial Blood Ionized Calcium Urine Creatinine Urine Chloride Vancomycin Trough Coronavirus (PCR) Crossmatch 06/27/20 06/27/20 06/27/20 17:32 18:30 23:24 WBC RBC Hgb Hct MCHC RDW Plt Count Lymph % (Auto) Cole % (Auto) Lymph # (Auto) Cole # (Auto) Eos # (Auto) Seg Neutrophils % Seg Neuts % (Manual) Lymphocytes % (Manual) Monocytes % (Manual) Basophils % (Manual) Nucleated RBC % Seg Neutrophils # Seg Neutrophils # Man Lymphocytes # (Manual) Monocytes # (Manual) Eosinophils # (Manual) Basophils # (Manual) PT INR APTT D-Dimer Heparin Anti-Xa Level ABG pH POC ABG pCO2 POC ABG pO2 ABG pO2 ABG HCO3 ABG Hemoglobin ABG Oxyhemoglobin ABG Sodium ABG Potassium ABG Chloride ABG Glucose Carboxyhemoglobin Sodium Potassium 7.3 H* Chloride Carbon Dioxide BUN Creatinine Glucose POC Glucose 122 H 116 H Lactic Acid Calcium Phosphorus Magnesium Ferritin Direct Bilirubin AST ALT Alkaline Phosphatase Lactate Dehydrogenase Total Creatine Kinase C-Reactive Protein Total Protein Albumin Triglycerides Arterial Blood Glucose Arterial Blood Ionized Calcium Urine Creatinine Urine Chloride Vancomycin Trough Coronavirus (PCR) Crossmatch 06/28/20 06/28/20 06/28/20 00:00 02:16 05:37 WBC RBC Hgb Hct MCHC RDW Plt Count Lymph % (Auto) Cole % (Auto) Lymph # (Auto) Cole # (Auto) Eos # (Auto) Seg Neutrophils % Seg Neuts % (Manual) Lymphocytes % (Manual) Monocytes % (Manual) Basophils % (Manual) Nucleated RBC % Seg Neutrophils # Seg Neutrophils # Man Lymphocytes # (Manual) Monocytes # (Manual) Eosinophils # (Manual) Basophils # (Manual) PT INR APTT D-Dimer Heparin Anti-Xa Level ABG pH POC ABG pCO2 POC ABG pO2 79.0 L ABG pO2 ABG HCO3 ABG Hemoglobin 11.7 L ABG Oxyhemoglobin ABG Sodium 128.1 L ABG Potassium 6.6 H ABG Chloride ABG Glucose 124 H Carboxyhemoglobin Sodium Potassium 7.3 H* Chloride Carbon Dioxide BUN Creatinine Glucose POC Glucose 115 H Lactic Acid Calcium Phosphorus Magnesium Ferritin Direct Bilirubin AST ALT Alkaline Phosphatase Lactate Dehydrogenase Total Creatine Kinase C-Reactive Protein Total Protein Albumin Triglycerides Arterial Blood Glucose 124 H Arterial Blood Ionized Calcium 4.2 L Urine Creatinine Urine Chloride Vancomycin Trough Coronavirus (PCR) Crossmatch 06/28/20 06/28/20 06/28/20 10:03 10:03 11:51 WBC 33.6 H RBC 3.03 L Hgb 8.9 L Hct 27.0 L MCHC RDW Plt Count Lymph % (Auto) Cole % (Auto) Lymph # (Auto) Cole # (Auto) Eos # (Auto) Seg Neutrophils % Seg Neuts % (Manual) Lymphocytes % (Manual) Monocytes % (Manual) Basophils % (Manual) Nucleated RBC % Seg Neutrophils # Seg Neutrophils # Man Lymphocytes # (Manual) Monocytes # (Manual) Eosinophils # (Manual) Basophils # (Manual) PT INR APTT D-Dimer Heparin Anti-Xa Level ABG pH POC ABG pCO2 POC ABG pO2 ABG pO2 ABG HCO3 ABG Hemoglobin ABG Oxyhemoglobin ABG Sodium ABG Potassium ABG Chloride ABG Glucose Carboxyhemoglobin Sodium 136 L Potassium 6.5 H* Chloride Carbon Dioxide 20 L BUN 129 H Creatinine 5.8 H Glucose 113 H POC Glucose 107 H Lactic Acid Calcium 7.6 L Phosphorus Magnesium Ferritin Direct Bilirubin AST ALT Alkaline Phosphatase Lactate Dehydrogenase Total Creatine Kinase C-Reactive Protein Total Protein Albumin Triglycerides Arterial Blood Glucose Arterial Blood Ionized Calcium Urine Creatinine Urine Chloride Vancomycin Trough Coronavirus (PCR) Crossmatch 06/28/20 06/28/20 06/29/20 17:45 Unknown 03:15 WBC RBC Hgb Hct MCHC RDW Plt Count Lymph % (Auto) Cole % (Auto) Lymph # (Auto) Cole # (Auto) Eos # (Auto) Seg Neutrophils % Seg Neuts % (Manual) Lymphocytes % (Manual) Monocytes % (Manual) Basophils % (Manual) Nucleated RBC % Seg Neutrophils # Seg Neutrophils # Man Lymphocytes # (Manual) Monocytes # (Manual) Eosinophils # (Manual) Basophils # (Manual) PT INR APTT D-Dimer Heparin Anti-Xa Level ABG pH POC ABG pCO2 POC ABG pO2 ABG pO2 ABG HCO3 ABG Hemoglobin 7.8 L ABG Oxyhemoglobin ABG Sodium 127.4 L ABG Potassium 5.5 H ABG Chloride 97.0 L ABG Glucose 96 H Carboxyhemoglobin Sodium Potassium 5.4 H Chloride Carbon Dioxide BUN Creatinine Glucose POC Glucose 117 H Lactic Acid Calcium Phosphorus Magnesium Ferritin Direct Bilirubin AST ALT Alkaline Phosphatase Lactate Dehydrogenase Total Creatine Kinase C-Reactive Protein Total Protein Albumin Triglycerides Arterial Blood Glucose 96 H Arterial Blood Ionized Calcium 4.0 L Urine Creatinine Urine Chloride Vancomycin Trough Coronavirus (PCR) Crossmatch 06/29/20 06/29/20 06/29/20 03:45 Unknown Unknown WBC RBC Hgb Hct MCHC RDW Plt Count Lymph % (Auto) Cole % (Auto) Lymph # (Auto) Cole # (Auto) Eos # (Auto) Seg Neutrophils % Seg Neuts % (Manual) Lymphocytes % (Manual) Monocytes % (Manual) Basophils % (Manual) Nucleated RBC % Seg Neutrophils # Seg Neutrophils # Man Lymphocytes # (Manual) Monocytes # (Manual) Eosinophils # (Manual) Basophils # (Manual) PT INR APTT D-Dimer Heparin Anti-Xa Level ABG pH POC ABG pCO2 POC ABG pO2 ABG pO2 ABG HCO3 ABG Hemoglobin ABG Oxyhemoglobin ABG Sodium ABG Potassium ABG Chloride ABG Glucose Carboxyhemoglobin Sodium 135 L Potassium 6.0 H 6.1 H* Chloride 94.8 L Carbon Dioxide BUN 109 H 114 H Creatinine 5.5 H Glucose POC Glucose Lactic Acid Calcium 7.4 L Phosphorus Magnesium Ferritin Direct Bilirubin AST 47 H ALT Alkaline Phosphatase Lactate Dehydrogenase Total Creatine Kinase C-Reactive Protein Total Protein 4.9 L Albumin 2.2 L Triglycerides Arterial Blood Glucose Arterial Blood Ionized Calcium Urine Creatinine Urine Chloride Vancomycin Trough Coronavirus (PCR) Crossmatch 06/29/20 06/29/20 06/30/20 Unknown Unknown 03:32 WBC 20.7 H RBC 2.57 L Hgb 7.6 L Hct 23.0 L MCHC RDW Plt Count Lymph % (Auto) Cole % (Auto) Lymph # (Auto) Cole # (Auto) Eos # (Auto) Seg Neutrophils % Seg Neuts % (Manual) Lymphocytes % (Manual) Monocytes % (Manual) Basophils % (Manual) Nucleated RBC % Seg Neutrophils # Seg Neutrophils # Man Lymphocytes # (Manual) Monocytes # (Manual) Eosinophils # (Manual) Basophils # (Manual) PT INR APTT D-Dimer Heparin Anti-Xa Level ABG pH POC ABG pCO2 POC ABG pO2 ABG pO2 ABG HCO3 ABG Hemoglobin 11.4 L ABG Oxyhemoglobin ABG Sodium 130.1 L ABG Potassium 5.0 H ABG Chloride ABG Glucose Carboxyhemoglobin Sodium Potassium Chloride Carbon Dioxide BUN Creatinine Glucose POC Glucose Lactic Acid Calcium Phosphorus Magnesium Ferritin Direct Bilirubin AST ALT Alkaline Phosphatase Lactate Dehydrogenase Total Creatine Kinase 618 H C-Reactive Protein Total Protein Albumin Triglycerides Arterial Blood Glucose Arterial Blood Ionized Calcium 3.9 L Urine Creatinine Urine Chloride Vancomycin Trough Coronavirus (PCR) Crossmatch 06/30/20 06/30/2006/30/21 03:50 03:50 11:39 WBC 13.1 H RBC Hgb Hct MCHC RDW Plt Count Lymph % (Auto) Cole % (Auto) Lymph # (Auto) Cole # (Auto) Eos # (Auto) Seg Neutrophils % Seg Neuts % (Manual) 95.0 H Lymphocytes % (Manual) 3.0 L Monocytes % (Manual) Basophils % (Manual) Nucleated RBC % Seg Neutrophils # Seg Neutrophils # Man 12.4 H Lymphocytes # (Manual) 0.4 L Monocytes # (Manual) Eosinophils # (Manual) Basophils # (Manual) PT INR APTT D-Dimer Heparin Anti-Xa Level ABG pH POC ABG pCO2 POC ABG pO2 ABG pO2 ABG HCO3 ABG Hemoglobin ABG Oxyhemoglobin ABG Sodium ABG Potassium ABG Chloride ABG Glucose Carboxyhemoglobin Sodium 135 L Potassium 5.4 H D Chloride 93.6 L Carbon Dioxide BUN 85 H Creatinine 4.6 H Glucose POC Glucose 111 H Lactic Acid Calcium 7.1 L Phosphorus 9.40 H Magnesium Ferritin Direct Bilirubin AST ALT Alkaline Phosphatase Lactate Dehydrogenase Total Creatine Kinase C-Reactive Protein Total Protein Albumin Triglycerides Arterial Blood Glucose Arterial Blood Ionized Calcium Urine Creatinine Urine Chloride Vancomycin Trough Coronavirus (PCR) Crossmatch 06/30/20 06/30/20 07/01/20 13:12 Unknown 03:19 WBC RBC Hgb 7.8 L D Hct 23.2 L D MCHC RDW Plt Count Lymph % (Auto) Cole % (Auto) Lymph # (Auto) Cole # (Auto) Eos # (Auto) Seg Neutrophils % Seg Neuts % (Manual) Lymphocytes % (Manual) Monocytes % (Manual) Basophils % (Manual) Nucleated RBC % Seg Neutrophils # Seg Neutrophils # Man Lymphocytes # (Manual) Monocytes # (Manual) Eosinophils # (Manual) Basophils # (Manual) PT INR APTT D-Dimer Heparin Anti-Xa Level ABG pH 7.461 H POC ABG pCO2 POC ABG pO2 77.2 L ABG pO2 ABG HCO3 ABG Hemoglobin 6.9 L ABG Oxyhemoglobin ABG Sodium 128.5 L ABG Potassium ABG Chloride 97.0 L ABG Glucose Carboxyhemoglobin Sodium Potassium Chloride Carbon Dioxide BUN Creatinine Glucose POC Glucose Lactic Acid Calcium Phosphorus Magnesium Ferritin Direct Bilirubin AST ALT Alkaline Phosphatase Lactate Dehydrogenase Total Creatine Kinase C-Reactive Protein Total Protein Albumin Triglycerides Arterial Blood Glucose Arterial Blood Ionized Calcium 3.7 L Urine Creatinine Urine Chloride Vancomycin Trough Coronavirus (PCR) Positive A Crossmatch 07/01/20 07/01/20 07/01/20 06:00 06:00 11:04 WBC 16.7 H RBC 2.16 L Hgb 6.4 L Hct 19.2 L* MCHC RDW Plt Count Lymph % (Auto) Cole % (Auto) Lymph # (Auto) Cole # (Auto) Eos # (Auto) Seg Neutrophils % Seg Neuts % (Manual) Lymphocytes % (Manual) Monocytes % (Manual) Basophils % (Manual) Nucleated RBC % Seg Neutrophils # Seg Neutrophils # Man Lymphocytes # (Manual) Monocytes # (Manual) Eosinophils # (Manual) Basophils # (Manual) PT INR APTT D-Dimer Heparin Anti-Xa Level ABG pH POC ABG pCO2 POC ABG pO2 ABG pO2 ABG HCO3 ABG Hemoglobin ABG Oxyhemoglobin ABG Sodium ABG Potassium ABG Chloride ABG Glucose Carboxyhemoglobin Sodium 136 L Potassium Chloride 95.8 L Carbon Dioxide BUN 72 H Creatinine 4.3 H Glucose POC Glucose Lactic Acid Calcium 6.7 L Phosphorus Magnesium Ferritin Direct Bilirubin AST ALT Alkaline Phosphatase Lactate Dehydrogenase Total Creatine Kinase C-Reactive Protein Total Protein Albumin Triglycerides 250 H Arterial Blood Glucose Arterial Blood Ionized Calcium Urine Creatinine Urine Chloride Vancomycin Trough Coronavirus (PCR) Crossmatch See Detail 07/02/20 07/02/20 07/02/20 04:44 06:00 11:33 WBC 14.6 H RBC 2.47 L Hgb 7.4 L Hct 21.8 L MCHC RDW Plt Count Lymph % (Auto) Cole % (Auto) Lymph # (Auto) Cole # (Auto) Eos # (Auto) Seg Neutrophils % Seg Neuts % (Manual) Lymphocytes % (Manual) Monocytes % (Manual) Basophils % (Manual) Nucleated RBC % Seg Neutrophils # Seg Neutrophils # Man Lymphocytes # (Manual) Monocytes # (Manual) Eosinophils # (Manual) Basophils # (Manual) PT INR APTT D-Dimer Heparin Anti-Xa Level ABG pH 7.457 H POC ABG pCO2 POC ABG pO2 79.4 L ABG pO2 ABG HCO3 ABG Hemoglobin 8.5 L ABG Oxyhemoglobin ABG Sodium 128.4 L ABG Potassium ABG Chloride 97.0 L ABG Glucose 100 H Carboxyhemoglobin Sodium 133 L Potassium 5.2 H Chloride 93.3 L Carbon Dioxide BUN 66 H Creatinine 4.1 H Glucose 102 H POC Glucose Lactic Acid Calcium 7.2 L Phosphorus Magnesium Ferritin Direct Bilirubin AST ALT Alkaline Phosphatase Lactate Dehydrogenase Total Creatine Kinase C-Reactive Protein Total Protein Albumin Triglycerides Arterial Blood Glucose 100 H Arterial Blood Ionized Calcium 3.9 L Urine Creatinine Urine Chloride Vancomycin Trough Coronavirus (PCR) Crossmatch 07/02/20 07/03/20 07/03/20 11:33 03:54 09:15 WBC 16.6 H RBC 2.44 L Hgb 7.3 L Hct 21.4 L MCHC RDW Plt Count Lymph % (Auto) Cole % (Auto) Lymph # (Auto) Cole # (Auto) Eos # (Auto) Seg Neutrophils % Seg Neuts % (Manual) Lymphocytes % (Manual) Monocytes % (Manual) Basophils % (Manual) Nucleated RBC % Seg Neutrophils # Seg Neutrophils # Man Lymphocytes # (Manual) Monocytes # (Manual) Eosinophils # (Manual) Basophils # (Manual) PT INR APTT D-Dimer Heparin Anti-Xa Level ABG pH POC ABG pCO2 POC ABG pO2 66.1 L ABG pO2 ABG HCO3 ABG Hemoglobin 8.0 L ABG Oxyhemoglobin ABG Sodium 124.6 L ABG Potassium 5.5 H ABG Chloride 96.0 L ABG Glucose 111 H Carboxyhemoglobin Sodium Potassium Chloride Carbon Dioxide BUN Creatinine Glucose POC Glucose Lactic Acid Calcium Phosphorus Magnesium Ferritin Direct Bilirubin 0.7 H AST 94 H ALT 60 H Alkaline Phosphatase Lactate Dehydrogenase Total Creatine Kinase C-Reactive Protein Total Protein 4.4 L Albumin 1.9 L Triglycerides Arterial Blood Glucose 111 H Arterial Blood Ionized Calcium 3.8 L Urine Creatinine Urine Chloride Vancomycin Trough Coronavirus (PCR) Crossmatch 07/03/20 07/03/20 07/03/20 09:15 10:10 14:50 WBC RBC Hgb Hct MCHC RDW Plt Count Lymph % (Auto) Cole % (Auto) Lymph # (Auto) Cole # (Auto) Eos # (Auto) Seg Neutrophils % Seg Neuts % (Manual) Lymphocytes % (Manual) Monocytes % (Manual) Basophils % (Manual) Nucleated RBC % Seg Neutrophils # Seg Neutrophils # Man Lymphocytes # (Manual) Monocytes # (Manual) Eosinophils # (Manual) Basophils # (Manual) PT INR APTT D-Dimer 6608.00 H Heparin Anti-Xa Level ABG pH POC ABG pCO2 POC ABG pO2 ABG pO2 ABG HCO3 ABG Hemoglobin ABG Oxyhemoglobin ABG Sodium ABG Potassium ABG Chloride ABG Glucose Carboxyhemoglobin Sodium 133 L Potassium 6.2 H* Chloride 93.1 L Carbon Dioxide BUN 89 H Creatinine 5.1 H Glucose POC Glucose Lactic Acid Calcium 7.0 L Phosphorus Magnesium Ferritin Direct Bilirubin AST ALT Alkaline Phosphatase Lactate Dehydrogenase Total Creatine Kinase C-Reactive Protein Total Protein Albumin Triglycerides Arterial Blood Glucose Arterial Blood Ionized Calcium Urine Creatinine Urine Chloride Vancomycin Trough Coronavirus (PCR) Positive A Crossmatch 07/03/20 07/03/20 07/03/20 14:50 14:50 14:50 WBC RBC Hgb Hct MCHC RDW Plt Count Lymph % (Auto) Cole % (Auto) Lymph # (Auto) Cole # (Auto) Eos # (Auto) Seg Neutrophils % Seg Neuts % (Manual) Lymphocytes % (Manual) Monocytes % (Manual) Basophils % (Manual) Nucleated RBC % Seg Neutrophils # Seg Neutrophils # Man Lymphocytes # (Manual) Monocytes # (Manual) Eosinophils # (Manual) Basophils # (Manual) PT INR APTT D-Dimer Heparin Anti-Xa Level ABG pH POC ABG pCO2 POC ABG pO2 ABG pO2 ABG HCO3 ABG Hemoglobin ABG Oxyhemoglobin ABG Sodium ABG Potassium ABG Chloride ABG Glucose Carboxyhemoglobin Sodium Potassium Chloride Carbon Dioxide BUN Creatinine Glucose POC Glucose Lactic Acid < 0.20 L Calcium Phosphorus Magnesium Ferritin 1171.0 H Direct Bilirubin AST ALT Alkaline Phosphatase Lactate Dehydrogenase 525 H Total Creatine Kinase C-Reactive Protein 31.50 H Total Protein Albumin Triglycerides Arterial Blood Glucose Arterial Blood Ionized Calcium Urine Creatinine Urine Chloride Vancomycin Trough Coronavirus (PCR) Crossmatch 07/03/20 07/04/20 07/04/20 16:47 05:20 05:20 WBC 11.8 H RBC 2.32 L Hgb 6.7 L Hct 20.8 L MCHC RDW Plt Count Lymph % (Auto) 2.6 L Cole % (Auto) Lymph # (Auto) 0.3 L Cole # (Auto) Eos # (Auto) Seg Neutrophils % Seg Neuts % (Manual) Lymphocytes % (Manual) Monocytes % (Manual) Basophils % (Manual) Nucleated RBC % Seg Neutrophils # 11.0 H Seg Neutrophils # Man Lymphocytes # (Manual) Monocytes # (Manual) Eosinophils # (Manual) Basophils # (Manual) PT INR APTT D-Dimer Heparin Anti-Xa Level ABG pH POC ABG pCO2 POC ABG pO2 ABG pO2 ABG HCO3 ABG Hemoglobin ABG Oxyhemoglobin ABG Sodium ABG Potassium ABG Chloride ABG Glucose Carboxyhemoglobin Sodium Potassium 6.0 H Chloride 97.8 L Carbon Dioxide BUN 75 H Creatinine 4.5 H Glucose 121 H POC Glucose 107 H Lactic Acid Calcium 7.9 L Phosphorus Magnesium Ferritin Direct Bilirubin AST ALT Alkaline Phosphatase Lactate Dehydrogenase Total Creatine Kinase C-Reactive Protein Total Protein Albumin Triglycerides Arterial Blood Glucose Arterial Blood Ionized Calcium Urine Creatinine Urine Chloride Vancomycin Trough Coronavirus (PCR) Crossmatch 07/04/20 07/04/20 07/04/20 05:20 05:50 09:25 WBC RBC Hgb Hct MCHC RDW Plt Count Lymph % (Auto) Cole % (Auto) Lymph # (Auto) Cole # (Auto) Eos # (Auto) Seg Neutrophils % Seg Neuts % (Manual) Lymphocytes % (Manual) Monocytes % (Manual) Basophils % (Manual) Nucleated RBC % Seg Neutrophils # Seg Neutrophils # Man Lymphocytes # (Manual) Monocytes # (Manual) Eosinophils # (Manual) Basophils # (Manual) PT INR APTT D-Dimer Heparin Anti-Xa Level ABG pH 7.324 L POC ABG pCO2 POC ABG pO2 ABG pO2 98.9 H ABG HCO3 26.8 H ABG Hemoglobin < 5.1 L ABG Oxyhemoglobin ABG Sodium ABG Potassium ABG Chloride ABG Glucose Carboxyhemoglobin Sodium Potassium Chloride Carbon Dioxide BUN Creatinine Glucose POC Glucose 114 H Lactic Acid Calcium Phosphorus Magnesium Ferritin Direct Bilirubin AST ALT Alkaline Phosphatase Lactate Dehydrogenase Total Creatine Kinase C-Reactive Protein Total Protein Albumin Triglycerides Arterial Blood Glucose Arterial Blood Ionized Calcium Urine Creatinine Urine Chloride Vancomycin Trough Coronavirus (PCR) Crossmatch See Detail 07/04/20 07/04/20 07/04/20 12:33 17:41 23:04 WBC RBC Hgb Hct MCHC RDW Plt Count Lymph % (Auto) Cole % (Auto) Lymph # (Auto) Cole # (Auto) Eos # (Auto) Seg Neutrophils % Seg Neuts % (Manual) Lymphocytes % (Manual) Monocytes % (Manual) Basophils % (Manual) Nucleated RBC % Seg Neutrophils # Seg Neutrophils # Man Lymphocytes # (Manual) Monocytes # (Manual) Eosinophils # (Manual) Basophils # (Manual) PT INR APTT D-Dimer Heparin Anti-Xa Level ABG pH POC ABG pCO2 POC ABG pO2 ABG pO2 ABG HCO3 ABG Hemoglobin ABG Oxyhemoglobin ABG Sodium ABG Potassium ABG Chloride ABG Glucose Carboxyhemoglobin Sodium Potassium Chloride Carbon Dioxide BUN Creatinine Glucose POC Glucose 119 H 109 H 116 H Lactic Acid Calcium Phosphorus Magnesium Ferritin Direct Bilirubin AST ALT Alkaline Phosphatase Lactate Dehydrogenase Total Creatine Kinase C-Reactive Protein Total Protein Albumin Triglycerides Arterial Blood Glucose Arterial Blood Ionized Calcium Urine Creatinine Urine Chloride Vancomycin Trough Coronavirus (PCR) Crossmatch 07/05/20 07/05/20 07/05/20 04:30 08:21 08:21 WBC RBC 2.77 L Hgb 7.9 L Hct 23.9 L MCHC RDW 16.7 H Plt Count Lymph % (Auto) 7.5 L Cole % (Auto) Lymph # (Auto) 0.7 L Cole # (Auto) Eos # (Auto) Seg Neutrophils % 85.8 H Seg Neuts % (Manual) Lymphocytes % (Manual) Monocytes % (Manual) Basophils % (Manual) Nucleated RBC % Seg Neutrophils # 7.8 H Seg Neutrophils # Man Lymphocytes # (Manual) Monocytes # (Manual) Eosinophils # (Manual) Basophils # (Manual) PT INR APTT D-Dimer Heparin Anti-Xa Level ABG pH 7.295 L POC ABG pCO2 POC ABG pO2 ABG pO2 151.9 H ABG HCO3 26.8 H ABG Hemoglobin 7.3 L ABG Oxyhemoglobin ABG Sodium ABG Potassium ABG Chloride ABG Glucose Carboxyhemoglobin Sodium Potassium Chloride Carbon Dioxide BUN Creatinine Glucose POC Glucose Lactic Acid Calcium Phosphorus Magnesium Ferritin Direct Bilirubin AST ALT Alkaline Phosphatase Lactate Dehydrogenase Total Creatine Kinase C-Reactive Protein Total Protein Albumin Triglycerides 258 H Arterial Blood Glucose Arterial Blood Ionized Calcium Urine Creatinine Urine Chloride Vancomycin Trough Coronavirus (PCR) Crossmatch 07/05/20 07/05/20 07/06/20 08:21 12:12 04:29 WBC RBC Hgb Hct MCHC RDW Plt Count Lymph % (Auto) Cole % (Auto) Lymph # (Auto) Cole # (Auto) Eos # (Auto) Seg Neutrophils % Seg Neuts % (Manual) Lymphocytes % (Manual) Monocytes % (Manual) Basophils % (Manual) Nucleated RBC % Seg Neutrophils # Seg Neutrophils # Man Lymphocytes # (Manual) Monocytes # (Manual) Eosinophils # (Manual) Basophils # (Manual) PT INR APTT D-Dimer Heparin Anti-Xa Level ABG pH 7.291 L POC ABG pCO2 51.3 H POC ABG pO2 ABG pO2 ABG HCO3 ABG Hemoglobin 8.5 L ABG Oxyhemoglobin ABG Sodium 129.6 L ABG Potassium 4.8 H ABG Chloride 96.0 L ABG Glucose Carboxyhemoglobin Sodium 133 L Potassium 5.6 H Chloride 94.4 L Carbon Dioxide BUN 80 H Creatinine 4.2 H Glucose 114 H POC Glucose 106 H Lactic Acid Calcium 7.6 L Phosphorus Magnesium Ferritin Direct Bilirubin 0.5 H AST 75 H ALT 86 H Alkaline Phosphatase Lactate Dehydrogenase Total Creatine Kinase C-Reactive Protein Total Protein 5.6 L D Albumin 1.9 L Triglycerides Arterial Blood Glucose Arterial Blood Ionized Calcium 4.2 L Urine Creatinine Urine Chloride Vancomycin Trough Coronavirus (PCR) Crossmatch 07/06/20 07/06/20 07/06/20 11:35 11:35 12:16 WBC RBC 2.54 L Hgb 7.5 L Hct 21.5 L MCHC 35 H RDW 15.7 H Plt Count Lymph % (Auto) Cole % (Auto) Lymph # (Auto) Cole # (Auto) Eos # (Auto) Seg Neutrophils % Seg Neuts % (Manual) Lymphocytes % (Manual) Monocytes % (Manual) Basophils % (Manual) Nucleated RBC % Seg Neutrophils # Seg Neutrophils # Man Lymphocytes # (Manual) Monocytes # (Manual) Eosinophils # (Manual) Basophils # (Manual) PT INR APTT D-Dimer Heparin Anti-Xa Level ABG pH POC ABG pCO2 POC ABG pO2 ABG pO2 ABG HCO3 ABG Hemoglobin ABG Oxyhemoglobin ABG Sodium ABG Potassium ABG Chloride ABG Glucose Carboxyhemoglobin Sodium 130 L Potassium Chloride 92.2 L Carbon Dioxide 19 L D BUN 107 H Creatinine 5.1 H Glucose 106 H POC Glucose 106 H Lactic Acid Calcium 7.5 L Phosphorus Magnesium Ferritin Direct Bilirubin AST ALT Alkaline Phosphatase Lactate Dehydrogenase Total Creatine Kinase C-Reactive Protein Total Protein Albumin Triglycerides Arterial Blood Glucose Arterial Blood Ionized Calcium Urine Creatinine Urine Chloride Vancomycin Trough Coronavirus (PCR) Crossmatch 07/06/20 07/06/20 07/06/20 17:01 21:56 23:41 WBC RBC Hgb Hct MCHC RDW Plt Count Lymph % (Auto) Cole % (Auto) Lymph # (Auto) Cole # (Auto) Eos # (Auto) Seg Neutrophils % Seg Neuts % (Manual) Lymphocytes % (Manual) Monocytes % (Manual) Basophils % (Manual) Nucleated RBC % Seg Neutrophils # Seg Neutrophils # Man Lymphocytes # (Manual) Monocytes # (Manual) Eosinophils # (Manual) Basophils # (Manual) PT INR APTT D-Dimer Heparin Anti-Xa Level ABG pH POC ABG pCO2 POC ABG pO2 ABG pO2 ABG HCO3 ABG Hemoglobin ABG Oxyhemoglobin ABG Sodium ABG Potassium ABG Chloride ABG Glucose Carboxyhemoglobin Sodium 135 L Potassium 5.1 H Chloride Carbon Dioxide BUN 73 H Creatinine 4.0 H Glucose 112 H POC Glucose 109 H 111 H Lactic Acid Calcium 7.8 L Phosphorus Magnesium Ferritin Direct Bilirubin AST ALT Alkaline Phosphatase Lactate Dehydrogenase Total Creatine Kinase C-Reactive Protein Total Protein Albumin Triglycerides Arterial Blood Glucose Arterial Blood Ionized Calcium Urine Creatinine Urine Chloride Vancomycin Trough Coronavirus (PCR) Crossmatch 07/07/20 07/07/20 07/07/20 04:18 05:04 05:29 WBC RBC 2.46 L Hgb 7.6 L Hct 21.5 L MCHC 35 H RDW 16.5 H Plt Count Lymph % (Auto) Cole % (Auto) Lymph # (Auto) Cole # (Auto) Eos # (Auto) Seg Neutrophils % Seg Neuts % (Manual) 82.0 H Lymphocytes % (Manual) Monocytes % (Manual) Basophils % (Manual) Nucleated RBC % 1.0 H Seg Neutrophils # Seg Neutrophils # Man Lymphocytes # (Manual) 1.1 L Monocytes # (Manual) Eosinophils # (Manual) Basophils # (Manual) PT INR APTT D-Dimer Heparin Anti-Xa Level ABG pH POC ABG pCO2 POC ABG pO2 79.6 L ABG pO2 ABG HCO3 ABG Hemoglobin 8.2 L ABG Oxyhemoglobin ABG Sodium 133.3 L ABG Potassium 4.7 H ABG Chloride ABG Glucose 135 H Carboxyhemoglobin Sodium Potassium Chloride Carbon Dioxide BUN Creatinine Glucose POC Glucose 112 H Lactic Acid Calcium Phosphorus Magnesium Ferritin Direct Bilirubin AST ALT Alkaline Phosphatase Lactate Dehydrogenase Total Creatine Kinase C-Reactive Protein Total Protein Albumin Triglycerides Arterial Blood Glucose 135 H Arterial Blood Ionized Calcium 4.5 L Urine Creatinine Urine Chloride Vancomycin Trough Coronavirus (PCR) Crossmatch 07/07/20 07/07/20 07/07/20 10:17 12:18 17:43 WBC RBC Hgb Hct MCHC RDW Plt Count Lymph % (Auto) Cole % (Auto) Lymph # (Auto) Cole # (Auto) Eos # (Auto) Seg Neutrophils % Seg Neuts % (Manual) Lymphocytes % (Manual) Monocytes % (Manual) Basophils % (Manual) Nucleated RBC % Seg Neutrophils # Seg Neutrophils # Man Lymphocytes # (Manual) Monocytes # (Manual) Eosinophils # (Manual) Basophils # (Manual) PT INR APTT D-Dimer Heparin Anti-Xa Level ABG pH POC ABG pCO2 POC ABG pO2 ABG pO2 ABG HCO3 ABG Hemoglobin ABG Oxyhemoglobin ABG Sodium ABG Potassium ABG Chloride ABG Glucose Carboxyhemoglobin Sodium 136 L Potassium Chloride 96.8 L Carbon Dioxide BUN 82 H Creatinine 4.3 H Glucose 129 H POC Glucose 108 H 116 H Lactic Acid Calcium 7.8 L Phosphorus Magnesium Ferritin Direct Bilirubin AST ALT Alkaline Phosphatase Lactate Dehydrogenase Total Creatine Kinase C-Reactive Protein Total Protein Albumin Triglycerides Arterial Blood Glucose Arterial Blood Ionized Calcium Urine Creatinine Urine Chloride Vancomycin Trough Coronavirus (PCR) Crossmatch 07/07/20 07/08/20 07/08/20 23:31 04:00 04:00 WBC RBC 2.52 L Hgb 7.3 L Hct 22.2 L MCHC RDW 16.6 H Plt Count Lymph % (Auto) 11.5 L Cole % (Auto) Lymph # (Auto) Cole # (Auto) Eos # (Auto) Seg Neutrophils % 78.2 H Seg Neuts % (Manual) Lymphocytes % (Manual) Monocytes % (Manual) Basophils % (Manual) Nucleated RBC % Seg Neutrophils # 8.0 H Seg Neutrophils # Man Lymphocytes # (Manual) Monocytes # (Manual) Eosinophils # (Manual) Basophils # (Manual) PT INR APTT D-Dimer Heparin Anti-Xa Level ABG pH POC ABG pCO2 POC ABG pO2 ABG pO2 ABG HCO3 ABG Hemoglobin ABG Oxyhemoglobin ABG Sodium ABG Potassium ABG Chloride ABG Glucose Carboxyhemoglobin Sodium 132 L Potassium 5.4 H Chloride 92.5 L Carbon Dioxide BUN 98 H Creatinine 4.9 H Glucose 105 H POC Glucose 117 H Lactic Acid Calcium 7.9 L Phosphorus Magnesium Ferritin Direct Bilirubin AST ALT Alkaline Phosphatase Lactate Dehydrogenase Total Creatine Kinase C-Reactive Protein Total Protein Albumin Triglycerides Arterial Blood Glucose Arterial Blood Ionized Calcium Urine Creatinine Urine Chloride Vancomycin Trough Coronavirus (PCR) Crossmatch 07/08/20 07/08/20 07/08/20 04:09 11:34 17:05 WBC RBC Hgb Hct MCHC RDW Plt Count Lymph % (Auto) Cole % (Auto) Lymph # (Auto) Cole # (Auto) Eos # (Auto) Seg Neutrophils % Seg Neuts % (Manual) Lymphocytes % (Manual) Monocytes % (Manual) Basophils % (Manual) Nucleated RBC % Seg Neutrophils # Seg Neutrophils # Man Lymphocytes # (Manual) Monocytes # (Manual) Eosinophils # (Manual) Basophils # (Manual) PT INR APTT D-Dimer Heparin Anti-Xa Level ABG pH 7.220 L POC ABG pCO2 60.5 H POC ABG pO2 ABG pO2 ABG HCO3 ABG Hemoglobin 8.2 L ABG Oxyhemoglobin ABG Sodium 131.3 L ABG Potassium 5.2 H ABG Chloride ABG Glucose 103 H Carboxyhemoglobin Sodium Potassium Chloride Carbon Dioxide BUN Creatinine Glucose POC Glucose 140 H 125 H Lactic Acid Calcium Phosphorus Magnesium Ferritin Direct Bilirubin AST ALT Alkaline Phosphatase Lactate Dehydrogenase Total Creatine Kinase C-Reactive Protein Total Protein Albumin Triglycerides Arterial Blood Glucose 103 H Arterial Blood Ionized Calcium 4.3 L Urine Creatinine Urine Chloride Vancomycin Trough Coronavirus (PCR) Crossmatch 07/08/20 07/08/20 07/09/20 20:21 23:43 05:10 WBC RBC Hgb Hct MCHC RDW Plt Count Lymph % (Auto) Cole % (Auto) Lymph # (Auto) Cole # (Auto) Eos # (Auto) Seg Neutrophils % Seg Neuts % (Manual) Lymphocytes % (Manual) Monocytes % (Manual) Basophils % (Manual) Nucleated RBC % Seg Neutrophils # Seg Neutrophils # Man Lymphocytes # (Manual) Monocytes # (Manual) Eosinophils # (Manual) Basophils # (Manual) PT INR APTT D-Dimer Heparin Anti-Xa Level ABG pH 7.20 L POC ABG pCO2 69.8 H POC ABG pO2 138.9 H 76.1 L ABG pO2 ABG HCO3 ABG Hemoglobin 11.9 L 8.4 L ABG Oxyhemoglobin ABG Sodium 133.1 L 131.2 L ABG Potassium 5.0 H 4.7 H ABG Chloride ABG Glucose 120 H 102 H Carboxyhemoglobin Sodium Potassium Chloride Carbon Dioxide BUN Creatinine Glucose POC Glucose 118 H Lactic Acid Calcium Phosphorus Magnesium Ferritin Direct Bilirubin AST ALT Alkaline Phosphatase Lactate Dehydrogenase Total Creatine Kinase C-Reactive Protein Total Protein Albumin Triglycerides Arterial Blood Glucose 120 H 102 H Arterial Blood Ionized Calcium 4.4 L 4.3 L Urine Creatinine Urine Chloride Vancomycin Trough Coronavirus (PCR) Crossmatch 07/09/20 07/09/20 07/09/20 11:51 17:04 21:00 WBC RBC Hgb Hct MCHC RDW Plt Count Lymph % (Auto) Cole % (Auto) Lymph # (Auto) Cole # (Auto) Eos # (Auto) Seg Neutrophils % Seg Neuts % (Manual) Lymphocytes % (Manual) Monocytes % (Manual) Basophils % (Manual) Nucleated RBC % Seg Neutrophils # Seg Neutrophils # Man Lymphocytes # (Manual) Monocytes # (Manual) Eosinophils # (Manual) Basophils # (Manual) PT INR APTT D-Dimer Heparin Anti-Xa Level ABG pH POC ABG pCO2 POC ABG pO2 114.2 H ABG pO2 ABG HCO3 ABG Hemoglobin 7.8 L ABG Oxyhemoglobin ABG Sodium 132.3 L ABG Potassium 4.6 H ABG Chloride ABG Glucose Carboxyhemoglobin Sodium Potassium Chloride Carbon Dioxide BUN Creatinine Glucose POC Glucose 113 H 111 H Lactic Acid Calcium Phosphorus Magnesium Ferritin Direct Bilirubin AST ALT Alkaline Phosphatase Lactate Dehydrogenase Total Creatine Kinase C-Reactive Protein Total Protein Albumin Triglycerides Arterial Blood Glucose Arterial Blood Ionized Calcium 4.4 L Urine Creatinine Urine Chloride Vancomycin Trough Coronavirus (PCR) Crossmatch 07/10/20 07/10/20 07/10/20 03:49 03:55 03:55 WBC 18.1 H RBC 2.37 L Hgb 6.8 L Hct 20.7 L MCHC RDW 16.9 H Plt Count Lymph % (Auto) Cole % (Auto) Lymph # (Auto) Cole # (Auto) Eos # (Auto) Seg Neutrophils % Seg Neuts % (Manual) 79.0 H Lymphocytes % (Manual) 10.0 L Monocytes % (Manual) Basophils % (Manual) Nucleated RBC % 1.0 H Seg Neutrophils # Seg Neutrophils # Man 14.3 H Lymphocytes # (Manual) Monocytes # (Manual) Eosinophils # (Manual) 0.7 H Basophils # (Manual) PT INR APTT D-Dimer Heparin Anti-Xa Level ABG pH POC ABG pCO2 POC ABG pO2 ABG pO2 ABG HCO3 ABG Hemoglobin 7.7 L ABG Oxyhemoglobin ABG Sodium 130.3 L ABG Potassium 4.6 H ABG Chloride ABG Glucose Carboxyhemoglobin Sodium 136 L Potassium Chloride 96.0 L Carbon Dioxide BUN 76 H Creatinine 3.6 H Glucose POC Glucose Lactic Acid Calcium 7.4 L Phosphorus Magnesium Ferritin Direct Bilirubin AST ALT Alkaline Phosphatase Lactate Dehydrogenase Total Creatine Kinase C-Reactive Protein Total Protein Albumin Triglycerides Arterial Blood Glucose Arterial Blood Ionized Calcium 4.2 L Urine Creatinine Urine Chloride Vancomycin Trough Coronavirus (PCR) Crossmatch 07/10/20 07/11/20 07/11/20 13:24 04:08 06:52 WBC 26.0 H RBC 2.91 L Hgb 8.2 L Hct 24.8 L MCHC RDW 17.2 H Plt Count Lymph % (Auto) Cole % (Auto) Lymph # (Auto) Cole # (Auto) Eos # (Auto) Seg Neutrophils % Seg Neuts % (Manual) Lymphocytes % (Manual) 1.0 L Monocytes % (Manual) 11.0 H Basophils % (Manual) Nucleated RBC % Seg Neutrophils # Seg Neutrophils # Man 16.9 H Lymphocytes # (Manual) 0.3 L Monocytes # (Manual) 2.9 H Eosinophils # (Manual) 1.0 H Basophils # (Manual) PT INR APTT D-Dimer Heparin Anti-Xa Level ABG pH POC ABG pCO2 POC ABG pO2 ABG pO2 ABG HCO3 ABG Hemoglobin 8.5 L ABG Oxyhemoglobin ABG Sodium 130.6 L ABG Potassium 4.9 H ABG Chloride ABG Glucose 105 H Carboxyhemoglobin Sodium Potassium Chloride Carbon Dioxide BUN Creatinine Glucose POC Glucose Lactic Acid Calcium Phosphorus Magnesium Ferritin Direct Bilirubin AST ALT Alkaline Phosphatase Lactate Dehydrogenase Total Creatine Kinase C-Reactive Protein Total Protein Albumin Triglycerides Arterial Blood Glucose 105 H Arterial Blood Ionized Calcium 4.1 L Urine Creatinine Urine Chloride Vancomycin Trough Coronavirus (PCR) Crossmatch See Detail 07/11/20 07/11/20 07/11/20 06:52 08:48 11:39 WBC RBC Hgb Hct MCHC RDW Plt Count Lymph % (Auto) Cole % (Auto) Lymph # (Auto) Cole # (Auto) Eos # (Auto) Seg Neutrophils % Seg Neuts % (Manual) Lymphocytes % (Manual) Monocytes % (Manual) Basophils % (Manual) Nucleated RBC % Seg Neutrophils # Seg Neutrophils # Man Lymphocytes # (Manual) Monocytes # (Manual) Eosinophils # (Manual) Basophils # (Manual) PT INR APTT D-Dimer Heparin Anti-Xa Level ABG pH POC ABG pCO2 POC ABG pO2 ABG pO2 ABG HCO3 ABG Hemoglobin ABG Oxyhemoglobin ABG Sodium ABG Potassium ABG Chloride ABG Glucose Carboxyhemoglobin Sodium 133 L 134 L Potassium 5.3 H Chloride 93.5 L 94.8 L Carbon Dioxide BUN 101 H 99 H Creatinine 4.5 H 4.6 H Glucose 102 H POC Glucose 116 H Lactic Acid Calcium 7.8 L 7.6 L Phosphorus Magnesium Ferritin Direct Bilirubin AST ALT Alkaline Phosphatase Lactate Dehydrogenase Total Creatine Kinase C-Reactive Protein Total Protein Albumin Triglycerides Arterial Blood Glucose Arterial Blood Ionized Calcium Urine Creatinine Urine Chloride Vancomycin Trough Coronavirus (PCR) Crossmatch 07/11/20 07/12/20 07/12/20 17:23 00:04 03:20 WBC RBC Hgb Hct MCHC RDW Plt Count Lymph % (Auto) Cole % (Auto) Lymph # (Auto) Cole # (Auto) Eos # (Auto) Seg Neutrophils % Seg Neuts % (Manual) Lymphocytes % (Manual) Monocytes % (Manual) Basophils % (Manual) Nucleated RBC % Seg Neutrophils # Seg Neutrophils # Man Lymphocytes # (Manual) Monocytes # (Manual) Eosinophils # (Manual) Basophils # (Manual) PT INR APTT D-Dimer Heparin Anti-Xa Level ABG pH POC ABG pCO2 49.1 H POC ABG pO2 130.3 H ABG pO2 ABG HCO3 ABG Hemoglobin 8.7 L ABG Oxyhemoglobin ABG Sodium 135.2 L ABG Potassium 4.7 H ABG Chloride ABG Glucose 128 H Carboxyhemoglobin Sodium Potassium Chloride Carbon Dioxide BUN Creatinine Glucose POC Glucose 142 H 113 H Lactic Acid Calcium Phosphorus Magnesium Ferritin Direct Bilirubin AST ALT Alkaline Phosphatase Lactate Dehydrogenase Total Creatine Kinase C-Reactive Protein Total Protein Albumin Triglycerides Arterial Blood Glucose 128 H Arterial Blood Ionized Calcium 4.4 L Urine Creatinine Urine Chloride Vancomycin Trough Coronavirus (PCR) Crossmatch 07/12/20 07/12/20 07/12/20 03:40 03:40 04:00 WBC 24.3 H RBC 2.83 L Hgb 8.0 L Hct 24.9 L MCHC RDW 17.7 H Plt Count Lymph % (Auto) 5.6 L Cole % (Auto) 7.4 H Lymph # (Auto) Cole # (Auto) 1.8 H Eos # (Auto) 0.7 H Seg Neutrophils % 83.9 H Seg Neuts % (Manual) Lymphocytes % (Manual) Monocytes % (Manual) Basophils % (Manual) Nucleated RBC % Seg Neutrophils # 20.4 H Seg Neutrophils # Man Lymphocytes # (Manual) Monocytes # (Manual) Eosinophils # (Manual) Basophils # (Manual) PT INR APTT D-Dimer Heparin Anti-Xa Level ABG pH POC ABG pCO2 POC ABG pO2 ABG pO2 ABG HCO3 ABG Hemoglobin ABG Oxyhemoglobin ABG Sodium ABG Potassium ABG Chloride ABG Glucose Carboxyhemoglobin Sodium 134 L Potassium Chloride 95.5 L Carbon Dioxide BUN 79 H Creatinine 3.7 H Glucose 127 H POC Glucose Lactic Acid Calcium 7.8 L Phosphorus Magnesium Ferritin Direct Bilirubin AST ALT Alkaline Phosphatase Lactate Dehydrogenase Total Creatine Kinase C-Reactive Protein Total Protein Albumin Triglycerides 246 H Arterial Blood Glucose Arterial Blood Ionized Calcium Urine Creatinine Urine Chloride Vancomycin Trough Coronavirus (PCR) Crossmatch 07/12/20 07/12/20 07/12/20 05:48 11:50 17:29 WBC RBC Hgb Hct MCHC RDW Plt Count Lymph % (Auto) Cole % (Auto) Lymph # (Auto) Cole # (Auto) Eos # (Auto) Seg Neutrophils % Seg Neuts % (Manual) Lymphocytes % (Manual) Monocytes % (Manual) Basophils % (Manual) Nucleated RBC % Seg Neutrophils # Seg Neutrophils # Man Lymphocytes # (Manual) Monocytes # (Manual) Eosinophils # (Manual) Basophils # (Manual) PT INR APTT D-Dimer Heparin Anti-Xa Level ABG pH POC ABG pCO2 POC ABG pO2 ABG pO2 ABG HCO3 ABG Hemoglobin ABG Oxyhemoglobin ABG Sodium ABG Potassium ABG Chloride ABG Glucose Carboxyhemoglobin Sodium Potassium Chloride Carbon Dioxide BUN Creatinine Glucose POC Glucose 136 H 113 H 110 H Lactic Acid Calcium Phosphorus Magnesium Ferritin Direct Bilirubin AST ALT Alkaline Phosphatase Lactate Dehydrogenase Total Creatine Kinase C-Reactive Protein Total Protein Albumin Triglycerides Arterial Blood Glucose Arterial Blood Ionized Calcium Urine Creatinine Urine Chloride Vancomycin Trough Coronavirus (PCR) Crossmatch 07/12/20 07/13/20 07/13/20 23:43 03:11 06:59 WBC RBC Hgb Hct MCHC RDW Plt Count Lymph % (Auto) Cole % (Auto) Lymph # (Auto) Cole # (Auto) Eos # (Auto) Seg Neutrophils % Seg Neuts % (Manual) Lymphocytes % (Manual) Monocytes % (Manual) Basophils % (Manual) Nucleated RBC % Seg Neutrophils # Seg Neutrophils # Man Lymphocytes # (Manual) Monocytes # (Manual) Eosinophils # (Manual) Basophils # (Manual) PT INR APTT D-Dimer Heparin Anti-Xa Level ABG pH POC ABG pCO2 49.0 H POC ABG pO2 69.6 L ABG pO2 ABG HCO3 ABG Hemoglobin 8.5 L ABG Oxyhemoglobin 90.5 L ABG Sodium 133.6 L ABG Potassium 5.1 H ABG Chloride ABG Glucose 104 H Carboxyhemoglobin Sodium 133 L Potassium 5.7 H Chloride 96.3 L Carbon Dioxide 20 L D BUN 102 H Creatinine 4.4 H Glucose 101 H POC Glucose 120 H Lactic Acid Calcium 7.9 L Phosphorus Magnesium Ferritin Direct Bilirubin AST 61 H ALT 85 H Alkaline Phosphatase 144 H Lactate Dehydrogenase Total Creatine Kinase C-Reactive Protein Total Protein 5.4 L Albumin 2.0 L Triglycerides Arterial Blood Glucose 104 H Arterial Blood Ionized Calcium 4.3 L Urine Creatinine Urine Chloride Vancomycin Trough Coronavirus (PCR) Crossmatch 07/13/20 07/13/20 07/13/20 08:48 12:14 15:12 WBC 27.5 H RBC 3.03 L Hgb 8.7 L Hct 27.0 L MCHC RDW 18.0 H Plt Count Lymph % (Auto) Cole % (Auto) Lymph # (Auto) Cole # (Auto) Eos # (Auto) Seg Neutrophils % Seg Neuts % (Manual) Lymphocytes % (Manual) Monocytes % (Manual) Basophils % (Manual) Nucleated RBC % Seg Neutrophils # Seg Neutrophils # Man Lymphocytes # (Manual) Monocytes # (Manual) Eosinophils # (Manual) Basophils # (Manual) PT INR APTT D-Dimer Heparin Anti-Xa Level ABG pH POC ABG pCO2 POC ABG pO2 ABG pO2 ABG HCO3 ABG Hemoglobin ABG Oxyhemoglobin ABG Sodium ABG Potassium ABG Chloride ABG Glucose Carboxyhemoglobin Sodium Potassium 5.5 H Chloride Carbon Dioxide BUN 88 H Creatinine 3.8 H Glucose 133 H POC Glucose 134 H Lactic Acid Calcium 7.5 L Phosphorus Magnesium Ferritin Direct Bilirubin AST ALT Alkaline Phosphatase Lactate Dehydrogenase Total Creatine Kinase C-Reactive Protein Total Protein Albumin Triglycerides Arterial Blood Glucose Arterial Blood Ionized Calcium Urine Creatinine Urine Chloride Vancomycin Trough Coronavirus (PCR) Crossmatch 07/13/20 07/13/20 07/13/20 16:46 16:47 18:46 WBC RBC Hgb 7.4 L Hct 22.1 L MCHC RDW Plt Count Lymph % (Auto) Cole % (Auto) Lymph # (Auto) Cole # (Auto) Eos # (Auto) Seg Neutrophils % Seg Neuts % (Manual) Lymphocytes % (Manual) Monocytes % (Manual) Basophils % (Manual) Nucleated RBC % Seg Neutrophils # Seg Neutrophils # Man Lymphocytes # (Manual) Monocytes # (Manual) Eosinophils # (Manual) Basophils # (Manual) PT INR APTT D-Dimer Heparin Anti-Xa Level ABG pH POC ABG pCO2 POC ABG pO2 ABG pO2 ABG HCO3 ABG Hemoglobin ABG Oxyhemoglobin ABG Sodium ABG Potassium ABG Chloride ABG Glucose Carboxyhemoglobin Sodium Potassium Chloride Carbon Dioxide BUN Creatinine Glucose POC Glucose 118 H Lactic Acid Calcium Phosphorus Magnesium Ferritin Direct Bilirubin AST ALT Alkaline Phosphatase Lactate Dehydrogenase Total Creatine Kinase C-Reactive Protein Total Protein Albumin Triglycerides Arterial Blood Glucose Arterial Blood Ionized Calcium Urine Creatinine Urine Chloride Vancomycin Trough Coronavirus (PCR) Crossmatch See Detail 07/13/20 07/14/20 07/14/20 23:34 04:25 12:21 WBC RBC Hgb Hct MCHC RDW Plt Count Lymph % (Auto) Cole % (Auto) Lymph # (Auto) Cole # (Auto) Eos # (Auto) Seg Neutrophils % Seg Neuts % (Manual) Lymphocytes % (Manual) Monocytes % (Manual) Basophils % (Manual) Nucleated RBC % Seg Neutrophils # Seg Neutrophils # Man Lymphocytes # (Manual) Monocytes # (Manual) Eosinophils # (Manual) Basophils # (Manual) PT INR APTT D-Dimer Heparin Anti-Xa Level ABG pH POC ABG pCO2 POC ABG pO2 ABG pO2 ABG HCO3 ABG Hemoglobin 8.9 L ABG Oxyhemoglobin ABG Sodium 133.1 L ABG Potassium 4.7 H ABG Chloride ABG Glucose 113 H Carboxyhemoglobin Sodium Potassium Chloride Carbon Dioxide BUN Creatinine Glucose POC Glucose 109 H 109 H Lactic Acid Calcium Phosphorus Magnesium Ferritin Direct Bilirubin AST ALT Alkaline Phosphatase Lactate Dehydrogenase Total Creatine Kinase C-Reactive Protein Total Protein Albumin Triglycerides Arterial Blood Glucose 113 H Arterial Blood Ionized Calcium 4.4 L Urine Creatinine Urine Chloride Vancomycin Trough Coronavirus (PCR) Crossmatch 07/14/20 07/14/20 07/14/20 16:44 16:44 20:20 WBC 30.1 H RBC 2.60 L Hgb 7.4 L 5.6 L* Hct 23.0 L 18.1 L* MCHC RDW 18.0 H Plt Count Lymph % (Auto) Cole % (Auto) Lymph # (Auto) Cole # (Auto) Eos # (Auto) Seg Neutrophils % Seg Neuts % (Manual) 78.0 H Lymphocytes % (Manual) 5.0 L Monocytes % (Manual) Basophils % (Manual) Nucleated RBC % Seg Neutrophils # Seg Neutrophils # Man 23.5 H Lymphocytes # (Manual) Monocytes # (Manual) 0.9 H Eosinophils # (Manual) Basophils # (Manual) PT 15.6 H INR 1.26 H APTT D-Dimer Heparin Anti-Xa Level ABG pH POC ABG pCO2 POC ABG pO2 ABG pO2 ABG HCO3 ABG Hemoglobin ABG Oxyhemoglobin ABG Sodium ABG Potassium ABG Chloride ABG Glucose Carboxyhemoglobin Sodium Potassium Chloride Carbon Dioxide BUN Creatinine Glucose POC Glucose Lactic Acid Calcium Phosphorus Magnesium Ferritin Direct Bilirubin AST ALT Alkaline Phosphatase Lactate Dehydrogenase Total Creatine Kinase C-Reactive Protein Total Protein Albumin Triglycerides Arterial Blood Glucose Arterial Blood Ionized Calcium Urine Creatinine Urine Chloride Vancomycin Trough Coronavirus (PCR) Crossmatch 07/14/20 07/14/20 07/15/20 21:19 23:45 04:13 WBC RBC Hgb Hct MCHC RDW Plt Count Lymph % (Auto) Cole % (Auto) Lymph # (Auto) Cole # (Auto) Eos # (Auto) Seg Neutrophils % Seg Neuts % (Manual) Lymphocytes % (Manual) Monocytes % (Manual) Basophils % (Manual) Nucleated RBC % Seg Neutrophils # Seg Neutrophils # Man Lymphocytes # (Manual) Monocytes # (Manual) Eosinophils # (Manual) Basophils # (Manual) PT INR APTT D-Dimer Heparin Anti-Xa Level ABG pH POC ABG pCO2 POC ABG pO2 ABG pO2 ABG HCO3 ABG Hemoglobin 5.8 L 6.0 L ABG Oxyhemoglobin 93.8 L ABG Sodium 132.2 L 130.3 L ABG Potassium 5.5 H 5.8 H ABG Chloride ABG Glucose 118 H 122 H Carboxyhemoglobin Sodium Potassium Chloride Carbon Dioxide BUN Creatinine Glucose POC Glucose 126 H Lactic Acid Calcium Phosphorus Magnesium Ferritin Direct Bilirubin AST ALT Alkaline Phosphatase Lactate Dehydrogenase Total Creatine Kinase C-Reactive Protein Total Protein Albumin Triglycerides Arterial Blood Glucose 118 H 122 H Arterial Blood Ionized Calcium 4.3 L 4.2 L Urine Creatinine Urine Chloride Vancomycin Trough Coronavirus (PCR) Crossmatch 07/15/20 07/15/20 07/15/20 08:21 08:21 08:38 WBC 45.5 H* RBC 2.42 L Hgb 7.1 L Hct 21.5 L MCHC RDW 16.5 H Plt Count Lymph % (Auto) Cole % (Auto) Lymph # (Auto) Cole # (Auto) Eos # (Auto) Seg Neutrophils % Seg Neuts % (Manual) 89.0 H Lymphocytes % (Manual) 7.0 L Monocytes % (Manual) Basophils % (Manual) Nucleated RBC % Seg Neutrophils # Seg Neutrophils # Man 40.5 H Lymphocytes # (Manual) Monocytes # (Manual) 1.8 H Eosinophils # (Manual) Basophils # (Manual) PT 17.6 H INR 1.46 H APTT D-Dimer Heparin Anti-Xa Level ABG pH POC ABG pCO2 POC ABG pO2 ABG pO2 ABG HCO3 ABG Hemoglobin ABG Oxyhemoglobin ABG Sodium ABG Potassium ABG Chloride ABG Glucose Carboxyhemoglobin Sodium 131 L Potassium 6.0 H Chloride 94.6 L Carbon Dioxide 20 L BUN 116 H Creatinine 4.6 H Glucose 123 H POC Glucose Lactic Acid Calcium 7.6 L Phosphorus Magnesium Ferritin Direct Bilirubin AST ALT Alkaline Phosphatase Lactate Dehydrogenase Total Creatine Kinase C-Reactive Protein Total Protein Albumin Triglycerides Arterial Blood Glucose Arterial Blood Ionized Calcium Urine Creatinine Urine Chloride Vancomycin Trough Coronavirus (PCR) Crossmatch 07/15/20 07/15/20 07/15/20 11:29 17:23 18:52 WBC RBC Hgb Hct MCHC RDW Plt Count Lymph % (Auto) Cole % (Auto) Lymph # (Auto) Cole # (Auto) Eos # (Auto) Seg Neutrophils % Seg Neuts % (Manual) Lymphocytes % (Manual) Monocytes % (Manual) Basophils % (Manual) Nucleated RBC % Seg Neutrophils # Seg Neutrophils # Man Lymphocytes # (Manual) Monocytes # (Manual) Eosinophils # (Manual) Basophils # (Manual) PT INR APTT D-Dimer Heparin Anti-Xa Level ABG pH POC ABG pCO2 POC ABG pO2 ABG pO2 ABG HCO3 ABG Hemoglobin ABG Oxyhemoglobin ABG Sodium ABG Potassium ABG Chloride ABG Glucose Carboxyhemoglobin Sodium Potassium Chloride 97.9 L Carbon Dioxide BUN 78 H Creatinine 3.1 H Glucose 114 H POC Glucose 181 H 120 H Lactic Acid Calcium 7.3 L Phosphorus Magnesium Ferritin Direct Bilirubin AST ALT Alkaline Phosphatase Lactate Dehydrogenase Total Creatine Kinase C-Reactive Protein Total Protein Albumin Triglycerides Arterial Blood Glucose Arterial Blood Ionized Calcium Urine Creatinine Urine Chloride Vancomycin Trough Coronavirus (PCR) Crossmatch 07/15/20 07/16/20 07/16/20 18:52 01:10 03:38 WBC RBC Hgb 9.9 L 8.5 L Hct 29.8 L D 24.7 L MCHC RDW Plt Count Lymph % (Auto) Cole % (Auto) Lymph # (Auto) Cole # (Auto) Eos # (Auto) Seg Neutrophils % Seg Neuts % (Manual) Lymphocytes % (Manual) Monocytes % (Manual) Basophils % (Manual) Nucleated RBC % Seg Neutrophils # Seg Neutrophils # Man Lymphocytes # (Manual) Monocytes # (Manual) Eosinophils # (Manual) Basophils # (Manual) PT INR APTT D-Dimer Heparin Anti-Xa Level ABG pH 7.314 L POC ABG pCO2 48.5 H POC ABG pO2 58.9 L ABG pO2 ABG HCO3 ABG Hemoglobin 8.7 L ABG Oxyhemoglobin 86.7 L ABG Sodium 132.7 L ABG Potassium 5.2 H ABG Chloride ABG Glucose 99 H Carboxyhemoglobin Sodium Potassium Chloride Carbon Dioxide BUN Creatinine Glucose POC Glucose Lactic Acid Calcium Phosphorus Magnesium Ferritin Direct Bilirubin AST ALT Alkaline Phosphatase Lactate Dehydrogenase Total Creatine Kinase C-Reactive Protein Total Protein Albumin Triglycerides Arterial Blood Glucose 99 H Arterial Blood Ionized Calcium 3.9 L Urine Creatinine Urine Chloride Vancomycin Trough Coronavirus (PCR) Crossmatch 07/16/20 07/16/20 07/16/20 04:28 04:28 07:29 WBC 48.9 H* RBC 2.86 L Hgb 8.6 L 7.9 L Hct 25.4 L 24.4 L MCHC RDW 15.6 H Plt Count Lymph % (Auto) Cole % (Auto) Lymph # (Auto) Cole # (Auto) Eos # (Auto) Seg Neutrophils % Seg Neuts % (Manual) Lymphocytes % (Manual) Monocytes % (Manual) Basophils % (Manual) Nucleated RBC % Seg Neutrophils # Seg Neutrophils # Man Lymphocytes # (Manual) Monocytes # (Manual) Eosinophils # (Manual) Basophils # (Manual) PT INR APTT D-Dimer Heparin Anti-Xa Level ABG pH POC ABG pCO2 POC ABG pO2 ABG pO2 ABG HCO3 ABG Hemoglobin ABG Oxyhemoglobin ABG Sodium ABG Potassium ABG Chloride ABG Glucose Carboxyhemoglobin Sodium 136 L Potassium 5.4 H Chloride 95.0 L Carbon Dioxide BUN 85 H Creatinine 3.4 H Glucose 66 L POC Glucose Lactic Acid Calcium 6.8 L Phosphorus Magnesium Ferritin Direct Bilirubin AST ALT Alkaline Phosphatase Lactate Dehydrogenase Total Creatine Kinase C-Reactive Protein Total Protein Albumin Triglycerides Arterial Blood Glucose Arterial Blood Ionized Calcium Urine Creatinine Urine Chloride Vancomycin Trough Coronavirus (PCR) Crossmatch 07/16/20 07/16/20 07/16/20 11:52 18:06 18:08 WBC RBC Hgb 7.4 L Hct 22.5 L MCHC RDW Plt Count Lymph % (Auto) Cole % (Auto) Lymph # (Auto) Cole # (Auto) Eos # (Auto) Seg Neutrophils % Seg Neuts % (Manual) Lymphocytes % (Manual) Monocytes % (Manual) Basophils % (Manual) Nucleated RBC % Seg Neutrophils # Seg Neutrophils # Man Lymphocytes # (Manual) Monocytes # (Manual) Eosinophils # (Manual) Basophils # (Manual) PT INR APTT D-Dimer Heparin Anti-Xa Level ABG pH POC ABG pCO2 POC ABG pO2 ABG pO2 ABG HCO3 ABG Hemoglobin ABG Oxyhemoglobin ABG Sodium ABG Potassium ABG Chloride ABG Glucose Carboxyhemoglobin Sodium Potassium Chloride Carbon Dioxide BUN Creatinine Glucose POC Glucose 124 H 108 H Lactic Acid Calcium Phosphorus Magnesium Ferritin Direct Bilirubin AST ALT Alkaline Phosphatase Lactate Dehydrogenase Total Creatine Kinase C-Reactive Protein Total Protein Albumin Triglycerides Arterial Blood Glucose Arterial Blood Ionized Calcium Urine Creatinine Urine Chloride Vancomycin Trough Coronavirus (PCR) Crossmatch 07/17/20 07/17/20 07/17/20 03:27 15:25 15:25 WBC 46.2 H* RBC 2.05 L Hgb 6.1 L Hct 18.4 L* MCHC RDW 15.6 H Plt Count Lymph % (Auto) Cole % (Auto) Lymph # (Auto) Cole # (Auto) Eos # (Auto) Seg Neutrophils % Seg Neuts % (Manual) 87.0 H Lymphocytes % (Manual) 3.0 L Monocytes % (Manual) Basophils % (Manual) Nucleated RBC % Seg Neutrophils # Seg Neutrophils # Man 40.2 H Lymphocytes # (Manual) Monocytes # (Manual) 3.2 H Eosinophils # (Manual) Basophils # (Manual) PT 18.2 H INR 1.52 H APTT D-Dimer Heparin Anti-Xa Level ABG pH 7.313 L POC ABG pCO2 50.9 H POC ABG pO2 ABG pO2 ABG HCO3 ABG Hemoglobin 7.5 L ABG Oxyhemoglobin ABG Sodium 131.8 L ABG Potassium 4.6 H ABG Chloride ABG Glucose 105 H Carboxyhemoglobin Sodium Potassium Chloride Carbon Dioxide BUN Creatinine Glucose POC Glucose Lactic Acid Calcium Phosphorus Magnesium Ferritin Direct Bilirubin AST ALT Alkaline Phosphatase Lactate Dehydrogenase Total Creatine Kinase C-Reactive Protein Total Protein Albumin Triglycerides Arterial Blood Glucose 105 H Arterial Blood Ionized Calcium 3.9 L Urine Creatinine Urine Chloride Vancomycin Trough Coronavirus (PCR) Crossmatch 07/17/20 07/18/20 07/18/20 Unknown 03:10 05:06 WBC 37.9 H RBC 2.91 L Hgb 8.5 L Hct 25.6 L D MCHC RDW Plt Count Lymph % (Auto) Cole % (Auto) Lymph # (Auto) Cole # (Auto) Eos # (Auto) Seg Neutrophils % Seg Neuts % (Manual) Lymphocytes % (Manual) Monocytes % (Manual) Basophils % (Manual) Nucleated RBC % Seg Neutrophils # Seg Neutrophils # Man Lymphocytes # (Manual) Monocytes # (Manual) Eosinophils # (Manual) Basophils # (Manual) PT INR APTT D-Dimer Heparin Anti-Xa Level ABG pH POC ABG pCO2 POC ABG pO2 114.9 H ABG pO2 ABG HCO3 ABG Hemoglobin 8.6 L ABG Oxyhemoglobin ABG Sodium 130.6 L ABG Potassium 4.9 H ABG Chloride ABG Glucose Carboxyhemoglobin Sodium Potassium Chloride Carbon Dioxide BUN Creatinine Glucose POC Glucose Lactic Acid Calcium Phosphorus Magnesium Ferritin Direct Bilirubin AST ALT Alkaline Phosphatase Lactate Dehydrogenase Total Creatine Kinase C-Reactive Protein Total Protein Albumin Triglycerides Arterial Blood Glucose Arterial Blood Ionized Calcium 3.8 L Urine Creatinine Urine Chloride Vancomycin Trough Coronavirus (PCR) Crossmatch See Detail 07/18/20 07/19/20 07/19/20 05:06 00:06 03:57 WBC RBC Hgb Hct MCHC RDW Plt Count Lymph % (Auto) Cole % (Auto) Lymph # (Auto) Cole # (Auto) Eos # (Auto) Seg Neutrophils % Seg Neuts % (Manual) Lymphocytes % (Manual) Monocytes % (Manual) Basophils % (Manual) Nucleated RBC % Seg Neutrophils # Seg Neutrophils # Man Lymphocytes # (Manual) Monocytes # (Manual) Eosinophils # (Manual) Basophils # (Manual) PT INR APTT D-Dimer Heparin Anti-Xa Level ABG pH POC ABG pCO2 POC ABG pO2 ABG pO2 ABG HCO3 ABG Hemoglobin 8.6 L ABG Oxyhemoglobin ABG Sodium 130.4 L ABG Potassium ABG Chloride ABG Glucose Carboxyhemoglobin Sodium Potassium 5.4 H Chloride Carbon Dioxide BUN 79 H Creatinine 3.2 H Glucose POC Glucose 69 L Lactic Acid Calcium 6.9 L Phosphorus Magnesium Ferritin Direct Bilirubin AST ALT 58 H Alkaline Phosphatase Lactate Dehydrogenase Total Creatine Kinase C-Reactive Protein Total Protein 4.3 L D Albumin 1.7 L Triglycerides 306 H Arterial Blood Glucose Arterial Blood Ionized Calcium 3.9 L Urine Creatinine Urine Chloride Vancomycin Trough Coronavirus (PCR) Crossmatch 07/19/20 07/19/20 07/19/20 05:22 09:15 09:15 WBC 32.5 H RBC 2.57 L Hgb 7.8 L Hct 22.8 L MCHC RDW 15.3 H Plt Count Lymph % (Auto) Cole % (Auto) Lymph # (Auto) Cole # (Auto) Eos # (Auto) Seg Neutrophils % Seg Neuts % (Manual) Lymphocytes % (Manual) Monocytes % (Manual) Basophils % (Manual) Nucleated RBC % Seg Neutrophils # Seg Neutrophils # Man Lymphocytes # (Manual) Monocytes # (Manual) Eosinophils # (Manual) Basophils # (Manual) PT INR APTT D-Dimer Heparin Anti-Xa Level ABG pH POC ABG pCO2 POC ABG pO2 ABG pO2 ABG HCO3 ABG Hemoglobin ABG Oxyhemoglobin ABG Sodium ABG Potassium ABG Chloride ABG Glucose Carboxyhemoglobin Sodium 135 L Potassium Chloride 96.3 L Carbon Dioxide BUN 61 H Creatinine 2.8 H Glucose POC Glucose 64 L Lactic Acid Calcium 6.8 L Phosphorus Magnesium Ferritin Direct Bilirubin AST 54 H ALT 65 H Alkaline Phosphatase Lactate Dehydrogenase Total Creatine Kinase C-Reactive Protein Total Protein 4.3 L Albumin 1.8 L Triglycerides Arterial Blood Glucose Arterial Blood Ionized Calcium Urine Creatinine Urine Chloride Vancomycin Trough Coronavirus (PCR) Crossmatch 07/20/20 07/20/20 07/20/20 05:20 06:00 06:07 WBC 28.1 H RBC 2.53 L Hgb 7.7 L Hct 22.7 L MCHC RDW 15.5 H Plt Count Lymph % (Auto) Cole % (Auto) Lymph # (Auto) Cole # (Auto) Eos # (Auto) Seg Neutrophils % Seg Neuts % (Manual) Lymphocytes % (Manual) Monocytes % (Manual) Basophils % (Manual) Nucleated RBC % Seg Neutrophils # Seg Neutrophils # Man Lymphocytes # (Manual) Monocytes # (Manual) Eosinophils # (Manual) Basophils # (Manual) PT INR APTT D-Dimer Heparin Anti-Xa Level ABG pH POC ABG pCO2 POC ABG pO2 ABG pO2 ABG HCO3 ABG Hemoglobin 6.3 L ABG Oxyhemoglobin ABG Sodium 130.0 L ABG Potassium ABG Chloride ABG Glucose 114 H Carboxyhemoglobin Sodium Potassium Chloride Carbon Dioxide BUN Creatinine Glucose POC Glucose 110 H Lactic Acid Calcium Phosphorus Magnesium Ferritin Direct Bilirubin AST ALT Alkaline Phosphatase Lactate Dehydrogenase Total Creatine Kinase C-Reactive Protein Total Protein Albumin Triglycerides Arterial Blood Glucose 114 H Arterial Blood Ionized Calcium 3.9 L Urine Creatinine Urine Chloride Vancomycin Trough Coronavirus (PCR) Crossmatch 07/20/20 07/21/20 07/21/20 17:19 05:02 05:40 WBC 32.9 H RBC 2.78 L Hgb 8.5 L Hct 25.2 L MCHC RDW 15.7 H Plt Count 74 L Lymph % (Auto) Cole % (Auto) Lymph # (Auto) Cole # (Auto) Eos # (Auto) Seg Neutrophils % Seg Neuts % (Manual) Lymphocytes % (Manual) Monocytes % (Manual) Basophils % (Manual) Nucleated RBC % Seg Neutrophils # Seg Neutrophils # Man Lymphocytes # (Manual) Monocytes # (Manual) Eosinophils # (Manual) Basophils # (Manual) PT INR APTT D-Dimer Heparin Anti-Xa Level ABG pH POC ABG pCO2 POC ABG pO2 73.2 L ABG pO2 ABG HCO3 ABG Hemoglobin 9.1 L ABG Oxyhemoglobin 93.4 L ABG Sodium ABG Potassium 3.1 L ABG Chloride ABG Glucose 112 H Carboxyhemoglobin Sodium Potassium Chloride Carbon Dioxide BUN Creatinine Glucose POC Glucose 137 H Lactic Acid Calcium Phosphorus Magnesium Ferritin Direct Bilirubin AST ALT Alkaline Phosphatase Lactate Dehydrogenase Total Creatine Kinase C-Reactive Protein Total Protein Albumin Triglycerides Arterial Blood Glucose 112 H Arterial Blood Ionized Calcium Urine Creatinine Urine Chloride Vancomycin Trough Coronavirus (PCR) Crossmatch 07/22/20 07/22/20 07/22/20 04:11 16:00 16:00 WBC 38.7 H RBC 2.72 L Hgb 8.1 L Hct 24.5 L MCHC RDW 16.1 H Plt Count Lymph % (Auto) Cole % (Auto) Lymph # (Auto) Cole # (Auto) Eos # (Auto) Seg Neutrophils % Seg Neuts % (Manual) Lymphocytes % (Manual) Monocytes % (Manual) Basophils % (Manual) Nucleated RBC % Seg Neutrophils # Seg Neutrophils # Man Lymphocytes # (Manual) Monocytes # (Manual) Eosinophils # (Manual) Basophils # (Manual) PT INR APTT D-Dimer Heparin Anti-Xa Level ABG pH POC ABG pCO2 POC ABG pO2 67.7 L ABG pO2 ABG HCO3 ABG Hemoglobin 7.4 L ABG Oxyhemoglobin 91.7 L ABG Sodium ABG Potassium 2.9 L ABG Chloride ABG Glucose 105 H Carboxyhemoglobin Sodium Potassium Chloride Carbon Dioxide BUN Creatinine Glucose POC Glucose Lactic Acid Calcium Phosphorus Magnesium Ferritin Direct Bilirubin AST ALT Alkaline Phosphatase Lactate Dehydrogenase Total Creatine Kinase C-Reactive Protein Total Protein Albumin Triglycerides 197 H Arterial Blood Glucose 105 H Arterial Blood Ionized Calcium Urine Creatinine Urine Chloride Vancomycin Trough Coronavirus (PCR) Crossmatch 07/23/20 07/23/20 07/23/20 04:56 11:49 Unknown WBC RBC Hgb Hct MCHC RDW Plt Count Lymph % (Auto) Cole % (Auto) Lymph # (Auto) Cole # (Auto) Eos # (Auto) Seg Neutrophils % Seg Neuts % (Manual) Lymphocytes % (Manual) Monocytes % (Manual) Basophils % (Manual) Nucleated RBC % Seg Neutrophils # Seg Neutrophils # Man Lymphocytes # (Manual) Monocytes # (Manual) Eosinophils # (Manual) Basophils # (Manual) PT INR APTT D-Dimer Heparin Anti-Xa Level ABG pH POC ABG pCO2 POC ABG pO2 75.7 L ABG pO2 ABG HCO3 ABG Hemoglobin 9.3 L ABG Oxyhemoglobin ABG Sodium ABG Potassium 3.1 L ABG Chloride 108.0 H ABG Glucose 101 H Carboxyhemoglobin Sodium Potassium 3.1 L D Chloride Carbon Dioxide BUN 36 H Creatinine 2.1 H Glucose 103 H POC Glucose 107 H Lactic Acid Calcium Phosphorus Magnesium Ferritin Direct Bilirubin AST ALT Alkaline Phosphatase Lactate Dehydrogenase Total Creatine Kinase C-Reactive Protein Total Protein Albumin Triglycerides Arterial Blood Glucose 101 H Arterial Blood Ionized Calcium Urine Creatinine Urine Chloride Vancomycin Trough Coronavirus (PCR) Crossmatch 07/24/20 07/24/20 07/24/20 06:40 06:40 20:38 WBC 31.4 H RBC 2.37 L Hgb 7.2 L Hct 21.7 L MCHC RDW 17.0 H Plt Count Lymph % (Auto) Cole % (Auto) Lymph # (Auto) Cole # (Auto) Eos # (Auto) Seg Neutrophils % Seg Neuts % (Manual) 85.0 H Lymphocytes % (Manual) 6.0 L Monocytes % (Manual) Basophils % (Manual) Nucleated RBC % Seg Neutrophils # Seg Neutrophils # Man 26.7 H Lymphocytes # (Manual) Monocytes # (Manual) 0.9 H Eosinophils # (Manual) Basophils # (Manual) 0.3 H PT INR APTT D-Dimer Heparin Anti-Xa Level ABG pH POC ABG pCO2 POC ABG pO2 ABG pO2 ABG HCO3 ABG Hemoglobin ABG Oxyhemoglobin ABG Sodium ABG Potassium ABG Chloride ABG Glucose Carboxyhemoglobin Sodium Potassium 3.1 L Chloride Carbon Dioxide BUN 46 H Creatinine 2.5 H Glucose 109 H POC Glucose Lactic Acid Calcium Phosphorus Magnesium Ferritin Direct Bilirubin AST 46 H ALT 74 H Alkaline Phosphatase 180 H Lactate Dehydrogenase Total Creatine Kinase C-Reactive Protein Total Protein 4.6 L Albumin 2.0 L Triglycerides Arterial Blood Glucose Arterial Blood Ionized Calcium Urine Creatinine Urine Chloride Vancomycin Trough Coronavirus (PCR) Crossmatch See Detail 07/24/20 07/25/20 07/25/20 20:40 05:39 05:39 WBC 26.6 H RBC 2.79 L Hgb 8.5 L Hct 25.6 L MCHC RDW 16.1 H Plt Count Lymph % (Auto) Cole % (Auto) Lymph # (Auto) Cole # (Auto) Eos # (Auto) Seg Neutrophils % Seg Neuts % (Manual) 72.0 H Lymphocytes % (Manual) 2.0 L Monocytes % (Manual) Basophils % (Manual) 3.0 H Nucleated RBC % 1.0 H Seg Neutrophils # Seg Neutrophils # Man 19.2 H Lymphocytes # (Manual) 0.5 L Monocytes # (Manual) 1.6 H Eosinophils # (Manual) 0.5 H Basophils # (Manual) 0.8 H PT 15.3 H INR 1.21 H APTT D-Dimer Heparin Anti-Xa Level ABG pH POC ABG pCO2 POC ABG pO2 ABG pO2 ABG HCO3 ABG Hemoglobin ABG Oxyhemoglobin ABG Sodium ABG Potassium ABG Chloride ABG Glucose Carboxyhemoglobin Sodium Potassium Chloride Carbon Dioxide BUN 55 H Creatinine 2.9 H Glucose POC Glucose Lactic Acid Calcium Phosphorus Magnesium Ferritin Direct Bilirubin AST ALT Alkaline Phosphatase Lactate Dehydrogenase Total Creatine Kinase C-Reactive Protein Total Protein Albumin Triglycerides Arterial Blood Glucose Arterial Blood Ionized Calcium Urine Creatinine Urine Chloride Vancomycin Trough Coronavirus (PCR) Crossmatch Chest x-ray: pending Allied health notes reviewed: nursing
[2020-07-25] MEDS: AMIODARONE 200 MG TAB PO SCH ×2 (13:33→21:39)
[2020-07-25] MEDS: SODIUM HYPOCHLORITE, DAKIN'S 1/2 STRENGTH (0.25%) 473 ML TOPICAL SOLN TP SCH ×2 (13:33→21:41)
[2020-07-25] MEDS: PANTOPRAZOLE 40 MG INJ IV SCH ×2 (13:33→21:41)
[2020-07-25] MEDS: AMPICILLIN/NS 2 GM/100 ML 2 GM/100 ML BAG IV SCH (14:02)
--- NOTE | 2020-07-25 14:45 | XRay Report ---
CHEST 1 VIEW INDICATION / CLINICAL INFORMATION: pneumonia. COMPARISON: 07/19/2020 FINDINGS: SUPPORT DEVICES: Endotracheal tube, nasogastric tube, right central venous line HEART / MEDIASTINUM: No significant abnormality. LUNGS / PLEURA: Slight improvement in the bilateral airspace disease No pneumothorax. ADDITIONAL FINDINGS: No significant additional findings. IMPRESSION: Slight improvement in the bilateral airspace disease since 07/19/2020 Signer Name: Bassam Puente MD FACR Signed: 07/25/2020 2:40 PM Workstation Name: [email or web address]
--- NOTE | 2020-07-25 15:08 | Progress Note ---
Assessment and Plan Cultures: SARS CoV2 PCR: Positive 06/17/2020 blood culture: No growth 06/17/2020 sputum culture: No growth 07/15/2020 blood culture: No growth 07/15/2020 fungal blood culture: Enterococcus faecalis 07/15/2020 tracheal aspirate culture: Usual respiratory otf 07/18/2020 blood culture: no growth A/P: 59-year-old male with obesity, obesity hypoventilation syndrome: #Severe sepsis with septic shock, ?also component of hemorrhagic shock. On and off pressors. #Enterococcus bacteremia: 07/15/2020 fungal blood culture: grew Enterococcus. ?gut translocation. Interestingly other blood cultures from that day were negative. CT abdomen showed some colitis. Since repeat blood cultures negative, will finish 14 days of abx. #Anemia, GI bleed: GI on board. #Critical COVID-19 pneumonia: s/p abx, steroids and remdesivir. #Acute hypoxic respiratory failure: on the vent. Also with pneumomediastinum, subcutaneous emphysema. #Leukemoid reaction: likely multifactorial. #GIRISH: remains on HD per nephrology. Renally dose abx. #Sacral decubitus: s/p debridement by Dr. Kirk on 07/20/2020. Recs: -pressor requirements dropping, continue IV Ampicillin, renally dosed, complete 14 days ending 08/01/2020 -repeat blood cultures have been negative, however, if pressor requirements persist or worsen, exchange out lines -monitor fever and WBC G. Kassy Finney MD [facility] ([facility]) O: [phone] F: [phone] Subjective Date of service: 07/25/20 Principal diagnosis: ARF; Septic Shock; COVID-19 PNA; Atrial fibrillation; Obesity Interval history: White count remains elevated 26.6 which is slowly improving. Imaging personally reviewed: Chest x-ray: Slight improvement in airspace disease bilaterally. Objective - Exam Narrative Exam: Constitutional: sedated, intubated, on the vent Head, Ears, Nose: Normocephalic, atraumatic. External ears, nose normal Eyes: Conjunctivae/corneas clear. No icterus. No ptosis. Neck: intubated Oral: intubated Cardiovascular: S1, S2 + Respiratory: AE fair bilaterally and equal GI: Soft, bowel sounds + Musculoskeletal: No pedal edema, no cyanosis. Skin: No rash or abscess Hem/Lymphatic: No palpable cervical or supraclavicular nodes. Psych: no agitation Neurological: sedated, intubated, on the vent, exam limited - Constitutional Vitals: Vital Signs Temp Pulse Resp BP Pulse Ox 97.8 F 120 H 17 94/55 95 07/25/20 12:00 07/25/20 13:41 07/25/20 10:00 07/25/20 13:41 07/25/20 11:39 Temperature -Last 24 Hours Temperature 97.8 F Temperature 97.9 F Temperature 98 F Temperature 98.1 F Temperature 98.3 F Temperature 98.0 F Temperature 98.4 F Temperature 98.2 F Temperature 98.3 F Temperature 98.2 F Temperature 98.2 F Temperature 98.1 F Temperature 98.2 F - Labs CBC & Chem 7: 07/25/20 05:39 07/25/20 05:39 Labs: Abnormal lab results 07/24/20 07/24/20 07/25/20 Range/Units 20:38 20:40 05:39 WBC 26.6 H (4.5-11.0) K/mm3 RBC 2.79 L (3.65-5.03) M/mm3 Hgb 8.5 L (11.8-15.2) gm/dl Hct 25.6 L (35.5-45.6) % RDW 16.1 H (13.2-15.2) % Seg Neuts % (Manual) 72.0 H (40.0-70.0) % Lymphocytes % (Manual) 2.0 L (13.4-35.0) % Basophils % (Manual) 3.0 H (0.0-1.8) % Nucleated RBC % 1.0 H (0.0-0.9) % Seg Neutrophils # Man 19.2 H (1.8-7.7) K/mm3 Lymphocytes # (Manual) 0.5 L (1.2-5.4) K/mm3 Monocytes # (Manual) 1.6 H (0.0-0.8) K/mm3 Eosinophils # (Manual) 0.5 H (0.0-0.4) K/mm3 Basophils # (Manual) 0.8 H (0.0-0.1) K/mm3 PT 15.3 H (12.2-14.9) Sec. INR 1.21 H (0.87-1.13) BUN (9-20) mg/dL Creatinine (0.8-1.3) mg/dL Crossmatch See Detail 07/25/20 Range/Units 05:39 WBC (4.5-11.0) K/mm3 RBC (3.65-5.03) M/mm3 Hgb (11.8-15.2) gm/dl Hct (35.5-45.6) % RDW (13.2-15.2) % Seg Neuts % (Manual) (40.0-70.0) % Lymphocytes % (Manual) (13.4-35.0) % Basophils % (Manual) (0.0-1.8) % Nucleated RBC % (0.0-0.9) % Seg Neutrophils # Man (1.8-7.7) K/mm3 Lymphocytes # (Manual) (1.2-5.4) K/mm3 Monocytes # (Manual) (0.0-0.8) K/mm3 Eosinophils # (Manual) (0.0-0.4) K/mm3 Basophils # (Manual) (0.0-0.1) K/mm3 PT (12.2-14.9) Sec. INR (0.87-1.13) BUN 55 H (9-20) mg/dL Creatinine 2.9 H (0.8-1.3) mg/dL Crossmatch
--- NOTE | 2020-07-25 16:44 | Progress Note ---
Assessment and Plan Pt remains intubated and sedated. Telemetry reviewed: Aflutter HR 120s. Currently on PO Amio. Consider IV Amio if no improvement. Continue to hold AC in setting of severe anemia. Electrolyte management per nephrology. Cont supportive management. Overall poor prognosis. The patient has been seen in conjunction with Dr. Singh who agrees with the assessment and plan of care. - Patient Problems (1) Acute respiratory failure with hypoxia Current Visit: Yes Status: Acute (2) Sepsis Current Visit: Yes Status: Acute Qualifiers: Severe sepsis acute organ dysfunction type: acute respiratory failure Severe sepsis shock status: with septic shock (3) Atrial fibrillation with rapid ventricular response Current Visit: Yes Status: Acute (4) Acute renal failure Current Visit: Yes Status: Acute (5) Pneumonia due to COVID-19 virus Current Visit: Yes Status: Acute (6) Elevated LFTs Current Visit: Yes Status: Acute (7) Hyperkalemia Current Visit: Yes Status: Acute (8) Anemia Current Visit: Yes Status: Acute Subjective Date of service: 07/25/20 Principal diagnosis: ARF; Septic Shock; COVID-19 PNA; Atrial fibrillation; Obesity Interval history: Pt is lying in bed, intubated and sedated. Telemetry reviewed: Aflutter, HR 120s. Objective Last Vital Signs Temp 98.4 F 07/25/20 16:00 Pulse 118 H 07/25/20 13:50 Resp 18 07/25/20 13:50 BP 106/57 07/25/20 13:50 Pulse Ox 95 07/25/20 13:50 - Physical Examination General: Other (intubated, sedated ) Neck: Positive: neck supple Cardiac: Positive: irregularly irregular, S1/S2 Lungs: Positive: Ventilated Respirations Neuro: Positive: Other (intubated, lethargic) Abdomen: Positive: Unremarkable Skin: Negative: Rash, Wound Extremities: Present: upper extr. pulses, lower extr. pulses, +1 Edema - Labs and Meds Coagulation 07/24/20 Range/Units 20:40 PT 15.3 H (12.2-14.9) Sec. INR 1.21 H (0.87-1.13) APTT 36.1 (24.2-36.6) Sec. CBC 07/25/20 Range/Units 05:39 WBC 26.6 H (4.5-11.0) K/mm3 RBC 2.79 L (3.65-5.03) M/mm3 Hgb 8.5 L (11.8-15.2) gm/dl Hct 25.6 L (35.5-45.6) % Plt Count 195 (140-440) K/mm3 Comprehensive Metabolic Panel 07/25/20 Range/Units 05:39 Sodium 140 (137-145) mmol/L Potassium 3.8 D (3.6-5.0) mmol/L Chloride 104.6 (98-107) mmol/L Carbon Dioxide 25 (22-30) mmol/L BUN 55 H (9-20) mg/dL Creatinine 2.9 H (0.8-1.3) mg/dL Glucose 89 (75-100) mg/dL Calcium 9.2 (8.4-10.2) mg/dL - Imaging and Cardiology EKG: report reviewed, image reviewed Echo: report reviewed (TDS, EF 55-60%. ) - Telemetry EKG Rhythm: Atrial Flutter - EKG Sinus rhythms and dysrhythmias: sinus tachycardia - Allied health notes Allied health notes reviewed: nursing
--- NOTE | 2020-07-25 17:04 | Progress Note ---
Assessment and Plan - Patient Problems (1) Pressure ulcer of sacral region, stage 4 Current Visit: Yes Status: Acute (2) Respiratory failure Current Visit: Yes Status: Acute Plan to address problem: 1) Open tracheostomy and PEG tomorrow 2) NPO after MN 3) Preop Ancef Subjective Date of service: 07/25/20 Patient Reports: Positive: no new complaints (Discussed tracheostomy and PEG with who desires to proceed.) Objective Vital Signs - 12hr 07/25/20 07/25/20 07/25/20 05:06 05:10 05:16 Temperature Pulse Rate 119 H 121 H 123 H Respiratory 21 21 21 Rate Blood Pressure 113/60 102/60 102/60 O2 Sat by Pulse 93 93 96 Oximetry O2 Sat by Pulse Oximetry [ Anterior Bilateral Throughout] 07/25/20 07/25/20 07/25/20 05:20 05:26 05:30 Temperature Pulse Rate 123 H 123 H 123 H Respiratory 20 20 20 Rate Blood Pressure 105/57 105/57 103/56 O2 Sat by Pulse 95 96 94 Oximetry O2 Sat by Pulse Oximetry [ Anterior Bilateral Throughout] 07/25/20 07/25/20 07/25/20 05:36 05:40 05:46 Temperature Pulse Rate 123 H 123 H 123 H Respiratory 18 19 20 Rate Blood Pressure 103/56 103/56 103/56 O2 Sat by Pulse 97 95 96 Oximetry O2 Sat by Pulse Oximetry [ Anterior Bilateral Throughout] 07/25/20 07/25/20 07/25/20 05:50 05:56 06:00 Temperature Pulse Rate 118 H 123 H 123 H Respiratory 20 19 18 Rate Blood Pressure 96/56 96/56 101/56 O2 Sat by Pulse 95 90 95 Oximetry O2 Sat by Pulse Oximetry [ Anterior Bilateral Throughout] 07/25/20 07/25/20 07/25/20 06:06 06:10 08:00 Temperature 98 F Pulse Rate 123 H 124 H Respiratory 17 17 Rate Blood Pressure 101/56 97/57 O2 Sat by Pulse 97 95 Oximetry O2 Sat by Pulse Oximetry [ Anterior Bilateral Throughout] 07/25/20 07/25/20 07/25/20 08:19 10:00 10:11 Temperature 97.9 F Pulse Rate 123 H 123 H 125 H Respiratory 17 Rate Blood Pressure 87/53 96/52 98/56 O2 Sat by Pulse 96 Oximetry O2 Sat by Pulse 95 Oximetry [ Anterior Bilateral Throughout] 07/25/20 07/25/20 07/25/20 10:30 10:45 11:00 Temperature Pulse Rate 126 H 126 H 122 H Respiratory Rate Blood Pressure 96/54 88/54 101/52 O2 Sat by Pulse Oximetry O2 Sat by Pulse Oximetry [ Anterior Bilateral Throughout] 07/25/20 07/25/20 07/25/20 11:15 11:30 11:39 Temperature Pulse Rate 119 H 103 H 118 H Respiratory Rate Blood Pressure 95/55 105/54 106/54 O2 Sat by Pulse 95 Oximetry O2 Sat by Pulse Oximetry [ Anterior Bilateral Throughout] 07/25/20 07/25/20 07/25/20 11:45 12:00 12:15 Temperature 97.8 F Pulse Rate 121 H 98 H 110 H Respiratory Rate Blood Pressure 90/59 106/53 123/64 O2 Sat by Pulse Oximetry O2 Sat by Pulse Oximetry [ Anterior Bilateral Throughout] 07/25/20 07/25/20 07/25/20 12:30 12:45 13:00 Temperature Pulse Rate 97 H 119 H 106 H Respiratory Rate Blood Pressure 103/58 104/63 106/61 O2 Sat by Pulse Oximetry O2 Sat by Pulse Oximetry [ Anterior Bilateral Throughout] 07/25/20 07/25/20 07/25/20 13:15 13:30 13:41 Temperature Pulse Rate 102 H 108 H 120 H Respiratory Rate Blood Pressure 90/54 111/53 94/55 O2 Sat by Pulse Oximetry O2 Sat by Pulse Oximetry [ Anterior Bilateral Throughout] 07/25/20 07/25/20 07/25/20 13:50 16:00 16:38 Temperature 97.8 F 98.4 F Pulse Rate 118 H 112 H Respiratory 18 Rate Blood Pressure 106/57 104/64 O2 Sat by Pulse 96 Oximetry O2 Sat by Pulse 95 Oximetry [ Anterior Bilateral Throughout] - Labs 07/25/20 05:39 07/25/20 05:39 Diabetes panel 07/25/20 Range/Units 05:39 Sodium 140 (137-145) mmol/L Potassium 3.8 D (3.6-5.0) mmol/L Chloride 104.6 (98-107) mmol/L Carbon Dioxide 25 (22-30) mmol/L BUN 55 H (9-20) mg/dL Creatinine 2.9 H (0.8-1.3) mg/dL Glucose 89 (75-100) mg/dL Calcium 9.2 (8.4-10.2) mg/dL Calcium panel 07/25/20 Range/Units 05:39 Calcium 9.2 (8.4-10.2) mg/dL Pituitary panel 07/25/20 Range/Units 05:39 Sodium 140 (137-145) mmol/L Potassium 3.8 D (3.6-5.0) mmol/L Chloride 104.6 (98-107) mmol/L Carbon Dioxide 25 (22-30) mmol/L BUN 55 H (9-20) mg/dL Creatinine 2.9 H (0.8-1.3) mg/dL Glucose 89 (75-100) mg/dL Calcium 9.2 (8.4-10.2) mg/dL Adrenal panel 07/25/20 Range/Units 05:39 Sodium 140 (137-145) mmol/L Potassium 3.8 D (3.6-5.0) mmol/L Chloride 104.6 (98-107) mmol/L Carbon Dioxide 25 (22-30) mmol/L BUN 55 H (9-20) mg/dL Creatinine 2.9 H (0.8-1.3) mg/dL Glucose 89 (75-100) mg/dL Calcium 9.2 (8.4-10.2) mg/dL
[2020-07-25] MEDS ORDERED: DEXTROSE 50% IN WATER (25GM) 50 ML VIAL IV PRN (17:30)
[2020-07-25] MEDS ORDERED: DEXTROSE 50% IN WATER (25GM) 50 ML SYRINGE IV ONE (17:40)
[2020-07-25] MEDS: NORepinephrine/NS 4 MG-250 ML 4 MG/250 ML BAG IV SCH (20:45)
[2020-07-26] MEDS: AMPICILLIN/NS 2 GM/100 ML 2 GM/100 ML BAG IV SCH ×2 (00:48→13:44)
[2020-07-26] MEDS: INSULIN REGULAR, HUMAN 100 UNITS/1 ML SUB-Q SCH ×4 (00:52→18:00)
[2020-07-26 05:23] LABS: Hematocrit 24.7 % (35.5-45.6); Hemoglobin 8.3 gm/dl (11.8-15.2); Mean Corpuscular HGB Conc 33 % (32-34); Mean Corpuscular Volume 92 fl (84-94); Platelet Count 178 K/mm3 (140-440); Red Blood Count 2.68 M/mm3 (3.65-5.03); Red Cell Distribution Width 16.3 % (13.2-15.2)
[2020-07-26] MEDS: SIMPLE SYRUP 15 ML FEEDTUBE PRN ×2 (06:10→13:55)
[2020-07-26] MEDS: fentaNYL DRIP Premix 2,000 MCG/100 ML BAG IV SCH ×4 (06:10→22:18)
[2020-07-26 06:36] LABS: Anisocytosis Few; Band Neutrophils # (Manual) 0.2 K/mm3; Hypochromasia 1+; Platelet Estimate Consistent w Auto; Total Cells Counted 100
[2020-07-26 09:16] LABS: Calcium 8.2 mg/dL (8.4-10.2)
[2020-07-26] MEDS ORDERED: SODIUM CHLORIDE 0.9% 100 ML IV PRN ×2 (10:00→15:30)
--- NOTE | 2020-07-26 10:15 | Progress Note ---
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 Kidney function worsened and patient developed hyperkalemia, refractory acidosis and worsening azotemia. Hemodialysis initiated on June 22. Hemodynamic s tatus had improved and patient has been weaned off of vasopressors. Undergoing hemodialysis today with goal 1.5 L. Goal had to be decreased due to low blood pressure. (2) Severe sepsis with septic shock Current Visit: Yes Status: Acute Plan to address problem: Continue antibiotics per infectious disease senior recruitment consultant appropriately adjusted to the degree of renal function. (3) Hyperkalemia Current Visit: Yes Status: Acute Plan to address problem: Potassium has improved with intensive dialysis. Follow-up (4) Metabolic acidosis Current Visit: Yes Status: Acute Plan to address problem: Acidosis improving with dialysis. (5) Acute respiratory failure with hypoxia Current Visit: Yes Status: Acute Plan to address problem: Continue respiratory management by pulmonary (6) Pneumonia due to COVID-19 virus Current Visit: Yes Status: Acute Plan to address problem: IV Dexamethasone Supplemental oxygen/Respiratory support as needed Remdesevir contra-indicated due to Kidney failure Prophylactic anticoagulation Continue management per infectious disease (7) Transaminitis Current Visit: Yes Status: Acute Plan to address problem: Hypoperfusion injury. Follow-up liver function test Subjective Date of service: 07/26/20 Principal diagnosis: ARF; Septic Shock; COVID-19 PNA; Atrial fibrillation; Obesity Interval history: Patient seen lying in bed. On the ventilator. Receiving dialysis. Blood flows 350 dialysate flow 700 ultrafiltration 1.5 L. Objective - Exam Narrative Exam: Obese middle-aged male lying in bed on the ventilator HEENT: NCAT, Neck: Supple, no venous distention CVS: S1S2 RRR with no murmur, rub or gallop Chest: Coarse breath sounds Abdomen: Protuberant, soft, nontender, no organomegaly, bowel sounds are present Extremities: 2+ pitting edema Neuro: Not interacting /noncommunicative - Vital Signs Vital signs: Vital Signs - 12hr 07/25/20 07/25/20 07/25/20 22:30 22:57 23:00 Temperature Pulse Rate 129 H 124 H 124 H Pulse Rate [ From Monitor] Respiratory 16 17 16 Rate Blood Pressure 97/51 91/50 100/56 O2 Sat by Pulse 94 96 95 Oximetry 07/25/20 07/26/20 07/26/20 23:30 00:00 00:30 Temperature 98.4 F Pulse Rate 130 H 123 H 125 H Pulse Rate [ 123 H From Monitor] Respiratory 16 17 17 Rate Blood Pressure 100/56 100/53 100/56 O2 Sat by Pulse 94 94 95 Oximetry 07/26/20 07/26/20 07/26/20 01:01 01:31 02:00 Temperature Pulse Rate 113 H 119 H 115 H Pulse Rate [ From Monitor] Respiratory 18 17 15 Rate Blood Pressure 114/57 108/56 103/58 O2 Sat by Pulse 97 95 96 Oximetry 07/26/20 07/26/20 07/26/20 02:30 03:00 03:30 Temperature Pulse Rate 118 H 123 H 115 H Pulse Rate [ From Monitor] Respiratory 15 13 13 Rate Blood Pressure 104/57 104/61 103/61 O2 Sat by Pulse 95 94 95 Oximetry 07/26/20 07/26/20 07/26/20 03:53 04:00 04:01 Temperature 98.8 F Pulse Rate 118 H 117 H 117 H Pulse Rate [ 117 H From Monitor] Respiratory 20 Rate Blood Pressure 117/60 110/62 O2 Sat by Pulse 98 94 98 Oximetry 07/26/20 07/26/20 07/26/20 04:30 05:01 05:30 Temperature Pulse Rate 109 H 109 H 110 H Pulse Rate [ From Monitor] Respiratory 16 15 13 Rate Blood Pressure 98/53 109/62 110/62 O2 Sat by Pulse 95 97 96 Oximetry 07/26/20 07/26/20 07/26/20 06:00 08:00 09:02 Temperature 97.6 F Pulse Rate 119 H 101 H Pulse Rate [ From Monitor] Respiratory 14 Rate Blood Pressure 104/61 93/69 O2 Sat by Pulse 97 100 Oximetry - Lab 07/26/20 Unknown 07/26/20 08:46 Most recent lab results ABG pH 7.355 (7.320-7.450) 07/23/20 04:56 ABG pCO2 56.4 mm Hg 07/05/20 04:30 ABG pO2 151.9 mm Hg (80.0-90.0) H 07/05/20 04:30 ABG HCO3 26.8 mmol/L (20.0-26.0) H 07/05/20 04:30 ABG O2 Saturation 94.8 (0-100) 07/23/20 04:56 Calcium 8.2 mg/dL (8.4-10.2) L 07/26/20 08:46 Phosphorus 9.40 mg/dL (2.5-4.5) H 06/30/20 03:50 Magnesium 2.70 mg/dL (1.7-2.3) H 06/18/20 20:33 Urine Creatinine 192.4 mg/dL (0.1-20.0) H 06/18/20 15:00 Urine Sodium 28 mmol/L 06/18/20 15:00 Medications & Allergies - Medications Allergies/Adverse Reactions: Allergies No Known Allergies Allergy (Unverified 06/17/20 14:24) Home Medications: Home Medications Medication Instructions Recorded Confirmed Last Taken Type Losartan/Hydrochlorothiazide 1 each PO QDAY 06/19/20 06/19/20 Unknown History [Losartan-Hctz 100-25 mg Tab] amLODIPine [Norvasc] 5 mg PO DAILY 06/19/20 06/19/20 Unknown History Active Medications: Generic Name Dose Route Start Last Admin Trade Name Freq PRN Reason Stop Dose Admin Acetaminophen 650 mg 06/17/20 14:17 07/03/20 09:16 Acetaminophen 325 Mg Tab PO 650 mg Q4H PRN Administration Pain MILD(1-3)/Fever >100.5/ROBRETS Albuterol 2.5 mg 07/19/20 12:15 Albuterol 2.5 Mg/3 Ml Nebu IH Q6HRT PRN Shortness Of Breath Amiodarone HCl 200 mg 07/19/20 14:00 07/25/20 21:39 Amiodarone 200 Mg Tab PO 200 mg BID CONNOR Administration Lipase/Protease/Amylase 1 each 06/19/20 12:15 Lipase 10,500/Protease 25,000/Amylase 43,750 (Units) Dr Shad PADILLATUBE PRN PRN For Clogged Feeding Tube Ascorbic Acid 250 mg 06/17/20 22:00 07/25/20 21:39 Ascorbic Acid 250 Mg Tab PO 250 mg BID CONNOR Administration Cholecalciferol 1,000 unit 06/18/20 10:00 07/25/20 11:01 Cholecalciferol (Vit D3) 1000 Unit (25 Mcg) Tab PO Not Given DAILY CONNOR Dextrose 50 gm 07/25/20 17:30 Dextrose 50% In Water (25gm) 50 Ml Vial IV Q30MIN PRN Hypoglycemia Protocol Docusate Sodium 100 mg 06/23/20 15:00 07/25/20 21:39 Docusate Sodium 100 Mg/10 Ml Oral Liqd FEEDTUBE 100 mg BID CONNOR Administration Fentanyl 50 mcg 06/18/20 01:02 07/09/20 00:20 Fentanyl 100 Mcg/2 Ml Inj IV 50 mcg Q10MIN PRN Administration ANALGESIA Heparin Sodium (Porcine) 5,000 unit 06/22/20 12:53 06/30/20 13:36 Heparin 10,000 Unit/1 Ml Vial IV 5,000 unit PAM PRN Administration hemodialysis Hydrophilic Ointment 1 applic 06/17/20 22:52 07/12/20 20:22 Lip Therapy Vaseline TP 1 applic Q2HR PRN Administration Dry Lips Propofol 1,000 mg in 100 mls @ 3.402 mls/hr 06/18/20 01:00 07/26/20 06:11 Diprivan 10 Mg/Ml IV 15 mcg/kg/min TITR CONNOR 10.206 mls/hr Administration Protocol 5 MCG/KG/MIN Fentanyl Citrate 2,000 mcg in 100 mls @ 8 mls/hr 06/18/20 02:00 07/26/20 06:10 Fentanyl Drip Premix IV 2 mcg/kg/hr TITR CONNOR 16 mls/hr Administration Protocol 1 MCG/KG/HR Norepinephrine 4 mg in 250 mls @ 7.5 mls/hr 07/08/20 02:06 07/26/20 07:56 Levophed Drip 4 Mg/Ns 250 Ml IV 4 mcg/min TITR CONNOR 15 mls/hr Titration Protocol 2 MCG/MIN Vasopressin 20 unit/ Sodium 101 mls @ 9.09 mls/hr 07/11/20 11:00 07/18/20 15:36 Chloride IV 0 units/min TITR CONNOR 0 mls/hr Titration Protocol 0.03 UNITS/MIN Ampicillin Sodium 2 gm in 100 mls @ 100 mls/hr 07/21/20 12:00 07/26/20 01:48 Ampicillin/Ns 2 Gm/100 Ml IV 08/02/20 12:59 Infused Q12H CONNOR Infusion Protocol Sodium Chloride 100 mls @ 999 mls/hr 07/26/20 10:00 Nacl 0.9% IV PAM PRN Hypotension Insulin Human Regular 0 units 06/18/20 12:00 07/26/20 06:26 Insulin Regular, Human 100 Units/1 Ml SUB-Q Not Given Q6HR [facility] Protocol Multi-Ingred Cream/Lotion/Oil/Oint 1 applic 06/17/20 22:52 07/12/20 20:22 Mineral Oil/Petrolatum, White Ophth Oint 3.5 Gm OU 1 applic Q4HR PRN Administration Dry Eye(s) Ondansetron HCl 4 mg 06/17/20 14:17 Ondansetron 4 Mg/2 Ml Inj IV Q8H PRN Nausea And Vomiting Pantoprazole Sodium 40 mg 07/16/20 22:00 07/25/20 21:41 Pantoprazole 40 Mg Inj IV 40 mg BID CONNOR Administration Polyethylene Glycol 17 gm 06/23/20 15:00 07/25/20 11:01 Polyethylene Glycol 3350 17 Gm Powder PO Not Given QDAY CONNOR Quetiapine Fumarate 200 mg 06/28/20 13:00 07/25/20 21:39 Quetiapine 200 Mg Tab PO 200 mg BID CONNOR Administration Simple Syrup 15 ml 06/19/20 12:15 07/26/20 06:10 Simple Syrup 15 Ml FEEDTUBE 15 ml PRN PRN Administration Hypoglycemia Simple Syrup 30 ml 06/19/20 12:15 07/19/20 06:04 Simple Syrup 15 Ml FEEDTUBE 30 ml PRN PRN Administration Hypoglycemia Sodium Bicarbonate 325 mg 06/19/20 12:15 07/11/20 20:00 Sodium Bicarbonate 325 Mg Tab FEEDTUBE 325 mg PRN PRN Administration For Clogged Feeding Tube Sodium Chloride 10 ml 06/17/20 22:00 07/25/20 21:42 Sodium Chloride 0.9% 10 Ml Flush Syringe IV 10 ml BID CONNOR Administration Sodium Chloride 10 ml 06/17/20 14:17 Sodium Chloride 0.9% 10 Ml Flush Syringe IV PRN PRN LINE FLUSH Sodium Hypochlorite 1 applic 07/20/20 10:00 07/25/20 21:41 Sodium Hypochlorite, Dakin's 1/2 Strength (0.25%) 473 Ml Topical Soln TP 1 applicatio BID CONNOR Administration Zinc Sulfate 220 mg 06/17/20 22:00 07/25/20 21:39 Zinc Sulfate 220 Mg Cap PO 220 mg BID CONNOR Administration
--- NOTE | 2020-07-26 10:58 | Progress Note ---
Assessment and Plan Cont present cardiac management. Pt for trach/PEG today. The patient has been seen in conjunction with Dr. Singh who agrees with the assessment and plan of care. - Patient Problems (1) Acute respiratory failure with hypoxia Current Visit: Yes Status: Acute (2) Pneumonia due to COVID-19 virus Current Visit: Yes Status: Acute (3) Sepsis Current Visit: Yes Status: Acute Qualifiers: Severe sepsis acute organ dysfunction type: acute respiratory failure Severe sepsis shock status: with septic shock (4) Paroxysmal atrial fibrillation with rapid ventricular response Current Visit: Yes Status: Acute (5) Acute renal failure Current Visit: Yes Status: Acute (6) Elevated LFTs Current Visit: Yes Status: Acute (7) Anemia Current Visit: Yes Status: Acute Subjective Date of service: 07/26/20 Principal diagnosis: ARF; Septic Shock; COVID-19 PNA; Atrial fibrillation; Obesity Interval history: pt remains intubated, sedated. intermittently requiring vasopressor support. tele reviewed - in AFib/AFlutter HR 115s. for trach/PEG today. Objective Last Vital Signs Temp 97.6 F 07/26/20 08:00 Pulse 101 H 07/26/20 09:02 Resp 14 07/26/20 06:00 BP 93/69 07/26/20 09:02 Pulse Ox 100 07/26/20 09:02 - Physical Examination General: Other (intubated, sedated ) Neck: Positive: neck supple Cardiac: Positive: irregularly irregular, S1/S2 Lungs: Positive: Decreased Breath Sounds, Oxygen, Ventilated Respirations Neuro: Positive: Other (intubated, lethargic) Abdomen: Positive: Unremarkable Skin: Negative: Rash, Wound Extremities: Present: upper extr. pulses, lower extr. pulses, +1 Edema - Labs and Meds Lipids 07/26/20 Range/Units 08:46 Triglycerides 166 H (2-149) mg/dL CBC 07/26/20 Range/Units Unknown WBC 24.6 H (4.5-11.0) K/mm3 RBC 2.68 L (3.65-5.03) M/mm3 Hgb 8.3 L (11.8-15.2) gm/dl Hct 24.7 L (35.5-45.6) % Plt Count 178 (140-440) K/mm3 Comprehensive Metabolic Panel 07/26/20 Range/Units 08:46 Sodium 139 (137-145) mmol/L Potassium 3.7 (3.6-5.0) mmol/L Chloride 101.4 (98-107) mmol/L Carbon Dioxide 31 H (22-30) mmol/L BUN 37 H (9-20) mg/dL Creatinine 2.2 H (0.8-1.3) mg/dL Glucose 89 (75-100) mg/dL Calcium 8.2 L (8.4-10.2) mg/dL - Imaging and Cardiology EKG: report reviewed, image reviewed Echo: report reviewed (TDS, EF 55-60%. ) - Telemetry EKG Rhythm: Atrial Fibrillation - EKG Sinus rhythms and dysrhythmias: sinus tachycardia - Allied health notes Allied health notes reviewed: nursing
--- NOTE | 2020-07-26 11:12 | Progress Note ---
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 Kidney function worsened and patient developed hyperkalemia, refractory acidosis and worsening azotemia. Hemodialysis initiated on June 22. Hemodynamic s tatus had improved and patient has been weaned off of vasopressors. Patient is back on Levophed. Undergoing hemodialysis today with goal 1.5 L. Goal had to be decreased due to low blood pressure. (2) Severe sepsis with septic shock Current Visit: Yes Status: Acute Plan to address problem: Continue antibiotics per infectious disease hearing aid consultant appropriately adjusted to the degree of renal function. (3) Hyperkalemia Current Visit: Yes Status: Acute Plan to address problem: Potassium has improved with intensive dialysis. Follow-up (4) Metabolic acidosis Current Visit: Yes Status: Acute Plan to address problem: Acidosis improving with dialysis. (5) Acute respiratory failure with hypoxia Current Visit: Yes Status: Acute Plan to address problem: Continue respiratory management by pulmonary (6) Pneumonia due to COVID-19 virus Current Visit: Yes Status: Acute Plan to address problem: IV Dexamethasone Supplemental oxygen/Respiratory support as needed Remdesevir contra-indicated due to Kidney failure Prophylactic anticoagulation Continue management per infectious disease (7) Transaminitis Current Visit: Yes Status: Acute Plan to address problem: Hypoperfusion injury. Follow-up liver function test Subjective Date of service: 07/26/20 Principal diagnosis: ARF; Septic Shock; COVID-19 PNA; Atrial fibrillation; Obesity Interval history: Patient seen lying in bed. On the ventilator. Receiving dialysis. Patient on Levophed at 4 mcg/kg/min. On fentanyl and Diprivan infusions. Blood flows 350 dialysate flow 700 ultrafiltration 1.5 L. Objective - Exam Narrative Exam: Obese middle-aged male lying in bed on the ventilator HEENT: NCAT, endotracheal tube intact Neck: Supple, no venous distention CVS: S1S2 RRR with no murmur, rub or gallop Chest: Coarse breath sounds Abdomen: Protuberant, soft, nontender, no organomegaly, bowel sounds are present Extremities: 2+ pitting edema Neuro: Not interacting /noncommunicative - Vital Signs Vital signs: Vital Signs - 12hr 07/25/20 07/26/20 07/26/20 23:30 00:00 00:30 Temperature 98.4 F Pulse Rate 130 H 123 H 125 H Pulse Rate [ 123 H From Monitor] Respiratory 16 17 17 Rate Blood Pressure 100/56 100/53 100/56 O2 Sat by Pulse 94 94 95 Oximetry 07/26/20 07/26/20 07/26/20 01:01 01:31 02:00 Temperature Pulse Rate 113 H 119 H 115 H Pulse Rate [ From Monitor] Respiratory 18 17 15 Rate Blood Pressure 114/57 108/56 103/58 O2 Sat by Pulse 97 95 96 Oximetry 07/26/20 07/26/20 07/26/20 02:30 03:00 03:30 Temperature Pulse Rate 118 H 123 H 115 H Pulse Rate [ From Monitor] Respiratory 15 13 13 Rate Blood Pressure 104/57 104/61 103/61 O2 Sat by Pulse 95 94 95 Oximetry 07/26/20 07/26/20 07/26/20 03:53 04:00 04:01 Temperature 98.8 F Pulse Rate 118 H 117 H 117 H Pulse Rate [ 117 H From Monitor] Respiratory 20 Rate Blood Pressure 117/60 110/62 O2 Sat by Pulse 98 94 98 Oximetry 07/26/20 07/26/20 07/26/20 04:30 05:01 05:30 Temperature Pulse Rate 109 H 109 H 110 H Pulse Rate [ From Monitor] Respiratory 16 15 13 Rate Blood Pressure 98/53 109/62 110/62 O2 Sat by Pulse 95 97 96 Oximetry 07/26/20 07/26/20 07/26/20 06:00 08:00 09:02 Temperature 97.6 F Pulse Rate 119 H 101 H Pulse Rate [ From Monitor] Respiratory 14 Rate Blood Pressure 104/61 93/69 O2 Sat by Pulse 97 100 Oximetry - Lab 07/27/20 04:00 07/26/20 08:46 Most recent lab results ABG pH 7.355 (7.320-7.450) 07/23/20 04:56 ABG pCO2 56.4 mm Hg 07/05/20 04:30 ABG pO2 151.9 mm Hg (80.0-90.0) H 07/05/20 04:30 ABG HCO3 26.8 mmol/L (20.0-26.0) H 07/05/20 04:30 ABG O2 Saturation 94.8 (0-100) 07/23/20 04:56 Calcium 8.2 mg/dL (8.4-10.2) L 07/26/20 08:46 Phosphorus 9.40 mg/dL (2.5-4.5) H 06/30/20 03:50 Magnesium 2.70 mg/dL (1.7-2.3) H 06/18/20 20:33 Urine Creatinine 192.4 mg/dL (0.1-20.0) H 06/18/20 15:00 Urine Sodium 28 mmol/L 06/18/20 15:00 Medications & Allergies - Medications Allergies/Adverse Reactions: Allergies No Known Allergies Allergy (Unverified 06/17/20 14:24) Home Medications: Home Medications Medication Instructions Recorded Confirmed Last Taken Type Losartan/Hydrochlorothiazide 1 each PO QDAY 06/19/20 06/19/20 Unknown History [Losartan-Hctz 100-25 mg Tab] amLODIPine [Norvasc] 5 mg PO DAILY 06/19/20 06/19/20 Unknown History Active Medications: Generic Name Dose Route Start Last Admin Trade Name Freq PRN Reason Stop Dose Admin Acetaminophen 650 mg 06/17/20 14:17 07/03/20 09:16 Acetaminophen 325 Mg Tab PO 650 mg Q4H PRN Administration Pain MILD(1-3)/Fever >100.5/ROBERTS Albuterol 2.5 mg 07/19/20 12:15 Albuterol 2.5 Mg/3 Ml Nebu IH Q6HRT PRN Shortness Of Breath Amiodarone HCl 200 mg 07/19/20 14:00 07/25/20 21:39 Amiodarone 200 Mg Tab PO 200 mg BID CONNOR Administration Lipase/Protease/Amylase 1 each 06/19/20 12:15 Lipase 10,500/Protease 25,000/Amylase 43,750 (Units) Dr Kulkarni FEEDTUBE PRN PRN For Clogged Feeding Tube Ascorbic Acid 250 mg 06/17/20 22:00 07/25/20 21:39 Ascorbic Acid 250 Mg Tab PO 250 mg BID CONNOR Administration Cholecalciferol 1,000 unit 06/18/20 10:00 07/25/20 11:01 Cholecalciferol (Vit D3) 1000 Unit (25 Mcg) Tab PO Not Given DAILY CONNOR Dextrose 50 gm 07/25/20 17:30 Dextrose 50% In Water (25gm) 50 Ml Vial IV Q30MIN PRN Hypoglycemia Protocol Docusate Sodium 100 mg 06/23/20 15:00 07/25/20 21:39 Docusate Sodium 100 Mg/10 Ml Oral Liqd FEEDTUBE 100 mg BID CONNOR Administration Fentanyl 50 mcg 06/18/20 01:02 07/09/20 00:20 Fentanyl 100 Mcg/2 Ml Inj IV 50 mcg Q10MIN PRN Administration ANALGESIA Heparin Sodium (Porcine) 5,000 unit 06/22/20 12:53 06/30/20 13:36 Heparin 10,000 Unit/1 Ml Vial IV 5,000 unit PAM PRN Administration hemodialysis Hydrophilic Ointment 1 applic 06/17/20 22:52 07/12/20 20:22 Lip Therapy Vaseline TP 1 applic Q2HR PRN Administration Dry Lips Propofol 1,000 mg in 100 mls @ 3.402 mls/hr 06/18/20 01:00 07/26/20 06:11 Diprivan 10 Mg/Ml IV 15 mcg/kg/min TITR CONNOR 10.206 mls/hr Administration Protocol 5 MCG/KG/MIN Fentanyl Citrate 2,000 mcg in 100 mls @ 8 mls/hr 06/18/20 02:00 07/26/20 06:10 Fentanyl Drip Premix IV 2 mcg/kg/hr TITR CONNOR 16 mls/hr Administration Protocol 1 MCG/KG/HR Norepinephrine 4 mg in 250 mls @ 7.5 mls/hr 07/08/20 02:06 07/26/20 07:56 Levophed Drip 4 Mg/Ns 250 Ml IV 4 mcg/min TITR CONNOR 15 mls/hr Titration Protocol 2 MCG/MIN Vasopressin 20 unit/ Sodium 101 mls @ 9.09 mls/hr 07/11/20 11:00 07/18/20 15:36 Chloride IV 0 units/min TITR CONNOR 0 mls/hr Titration Protocol 0.03 UNITS/MIN Ampicillin Sodium 2 gm in 100 mls @ 100 mls/hr 07/21/20 12:00 07/26/20 01:48 Ampicillin/Ns 2 Gm/100 Ml IV 08/02/20 12:59 Infused Q12H CONNOR Infusion Protocol Sodium Chloride 100 mls @ 999 mls/hr 07/26/20 10:00 Nacl 0.9% IV PAM PRN Hypotension Insulin Human Regular 0 units 06/18/20 12:00 07/26/20 06:26 Insulin Regular, Human 100 Units/1 Ml SUB-Q Not Given Q6HR [facility] Protocol Multi-Ingred Cream/Lotion/Oil/Oint 1 applic 06/17/20 22:52 07/12/20 20:22 Mineral Oil/Petrolatum, White Ophth Oint 3.5 Gm OU 1 applic Q4HR PRN Administration Dry Eye(s) Ondansetron HCl 4 mg 06/17/20 14:17 Ondansetron 4 Mg/2 Ml Inj IV Q8H PRN Nausea And Vomiting Pantoprazole Sodium 40 mg 07/16/20 22:00 07/25/20 21:41 Pantoprazole 40 Mg Inj IV 40 mg BID CONNOR Administration Polyethylene Glycol 17 gm 06/23/20 15:00 07/25/20 11:01 Polyethylene Glycol 3350 17 Gm Powder PO Not Given QDAY CONNOR Quetiapine Fumarate 200 mg 06/28/20 13:00 07/25/20 21:39 Quetiapine 200 Mg Tab PO 200 mg BID CONNOR Administration Simple Syrup 15 ml 06/19/20 12:15 07/26/20 06:10 Simple Syrup 15 Ml FEEDTUBE 15 ml PRN PRN Administration Hypoglycemia Simple Syrup 30 ml 06/19/20 12:15 07/19/20 06:04 Simple Syrup 15 Ml FEEDTUBE 30 ml PRN PRN Administration Hypoglycemia Sodium Bicarbonate 325 mg 06/19/20 12:15 07/11/20 20:00 Sodium Bicarbonate 325 Mg Tab FEEDTUBE 325 mg PRN PRN Administration For Clogged Feeding Tube Sodium Chloride 10 ml 06/17/20 22:00 07/25/20 21:42 Sodium Chloride 0.9% 10 Ml Flush Syringe IV 10 ml BID CONNOR Administration Sodium Chloride 10 ml 06/17/20 14:17 Sodium Chloride 0.9% 10 Ml Flush Syringe IV PRN PRN LINE FLUSH Sodium Hypochlorite 1 applic 07/20/20 10:00 07/25/20 21:41 Sodium Hypochlorite, Dakin's 1/2 Strength (0.25%) 473 Ml Topical Soln TP 1 applicatio BID CONNOR Administration Zinc Sulfate 220 mg 06/17/20 22:00 07/25/20 21:39 Zinc Sulfate 220 Mg Cap PO 220 mg BID CONNOR Administration
[2020-07-26] MEDS: SODIUM HYPOCHLORITE, DAKIN'S 1/2 STRENGTH (0.25%) 473 ML TOPICAL SOLN TP SCH ×2 (13:45→22:38)
[2020-07-26] MEDS: PANTOPRAZOLE 40 MG INJ IV SCH ×2 (13:46→22:17)
[2020-07-26] MEDS: ZINC SULFATE 220 MG CAP PO SCH ×2 (13:51→22:31)
[2020-07-26] MEDS: ASCORBIC ACID 250 MG TAB PO SCH ×2 (13:51→22:31)
[2020-07-26] MEDS: DOCUSATE SODIUM 100 MG/10 ML ORAL LIQD FEEDTUBE SCH ×2 (13:51→22:31)
[2020-07-26] MEDS: CHOLECALCIFEROL (VIT D3) 1000 UNIT (25 mcg) TAB PO SCH (13:51)
[2020-07-26] MEDS: POLYETHYLENE GLYCOL 3350 17 GM POWDER PO SCH (13:51)
[2020-07-26] MEDS: AMIODARONE 200 MG TAB PO SCH ×2 (13:51→22:31)
[2020-07-26] MEDS: QUEtiapine 200 MG TAB PO SCH ×2 (13:51→22:31)
--- NOTE | 2020-07-26 14:21 | Progress Note ---
Assessment and Plan Acute hypoxemic respiratory failure due to COVID-19 Severe COVID infection Severe Sepsis with shock Bilateral pneumonia Acute kidney injury (GIRISH) with acute tubular necrosis (ATN) Elevated liver enzymes Obesity - HD/UF per nephrology prescription - tentatively for trach & PEG if OR space available today - keep peep at 8 cm H2O - continue care as below otherwise; - continue wound care per WCN / RN - continue on bariatric bed - continue to avoid supine position as much as possible - adjust ant-infective's per ID rec's (Ampicillin) - continue bid protonix - wean vasopressors for target MAP > 65 mmHg (back on Levophed) - continue daily SAT's & SBT's as tolerated - continue tube feeds at goal rate as tolerated - continue HD/UF per nephrology team for toxin and volume clearance - continue bowel regimen - Continue to wean supplemental oxygen for O2 sats >92% - Monitor blood pressure closely while optimizing sedation,wean vasopressor support for MAP > 65 mmHg - VAP bundle addressed, aspiration precautions HOB >40 - continue lung protective strategies, permissive hypercapnic acceptable. - continue bronchodilators with pulmonary hygiene per RT - wean per pulmonary driven protocols otherwise - accuchecks with glycemic control per SSI (While critically ill target blood glucose of 140-180 mg/dL; avoid hypoglycemia) - sedation prn for target RASS -1 to -2 - continue enteral nutritional support at goal rate as tolerated - on antibiotics per ID recommendations - follow clinically re: fevers / WBC - Monitor liver function test ,avoid hepatotoxic agents - azotemia per nephrology rec's - Avoid nephrotoxins, renally dose all medications, conservative fluid management - continue to avoid benzodiazepines, reduce the possibility of delirium, - prn analgesia per CPOT score - Maintenance of sleep-wake cycle, avoid delirium - Stress ulcer prophylaxis, Famotidine - PT/OT/ROM exercises - Mobility protocols for pressure ulcer prevention - CXR, ABG in am - CBC, CMP in am - Supportive transfusions to keep HgB >7g/dL - Monitor hemodynamics closely - continue other care per attending / other consultants COVID SPECIFIC INTERVENTIONS - s/p steroids: Dexamethasone - completed Remdesivir - monitor inflammatory markers prn - ferritin, D-dimer, CRP, LDH per facility protocol - continue anticoagulation per System Protocol based on d-dimer (on hold due to bleeding) - continue contact and airborne isolation CONDITION: CRITICAL PROGNOSIS: GUARDED CODE STATUS: FULL CODE The high probability of a clinically significant, sudden or life-threatening deterioration of the [respiratory, cardiovascular, hematologic & neurologic] system(s) required my full and direct attention, intervention and personal management. The aggregate critical care time was [40] minutes without overlap. Time includes spent on; [x] Data Review and interpretation [x] Patient assessment and monitoring of vital signs [x] Documentation [x] Medication orders and management He was evaluated in the context of the global COVID-19 pandemic, which necessitated consideration that the patient might be at risk for infection with the virus that causes COVID-19. Institutional protocols and algorithms that per tain to the evaluation of patients at risk for COVID-19 are in a state of rapid change based on information released by regulatory bodies including the CDC and federal and state organizations. These policies and algorithms were followed during the patient's care in the ICU Please note that these policies, procedures and recommendations changed on a rapid basis. Subjective Date of service: 07/26/20 Principal diagnosis: ARF; Septic Shock; COVID-19 PNA; Atrial fibrillation; Obesity Interval history: Patient is seen today for: Ac hypoxemic respiratory failure; COVID-19; Severe Sepsis with shock; Zackery. pneumonia; GIRISH; Elevated liver enzymes; Obesity Seen and examined at bedside; 24hour events reviewed; nursing and respiratory care staff consulted; no adverse overnight events reported to me; resting in bed; remains on MVS; awaiting trach / PEG; care plan discussed at length with his Sherri today; no emesis or overt aspiration & no gross GI bleeding Objective Vital Signs - 12hr 07/26/20 07/26/20 07/26/20 02:30 03:00 03:30 Temperature Pulse Rate 118 H 123 H 115 H Pulse Rate [ From Monitor] Respiratory 15 13 13 Rate Blood Pressure 104/57 104/61 103/61 O2 Sat by Pulse 95 94 95 Oximetry 07/26/20 07/26/20 07/26/20 03:53 04:00 04:01 Temperature 98.8 F Pulse Rate 118 H 117 H 117 H Pulse Rate [ 117 H From Monitor] Respiratory 20 Rate Blood Pressure 117/60 110/62 O2 Sat by Pulse 98 94 98 Oximetry 07/26/20 07/26/20 07/26/20 04:30 05:01 05:30 Temperature Pulse Rate 109 H 109 H 110 H Pulse Rate [ From Monitor] Respiratory 16 15 13 Rate Blood Pressure 98/53 109/62 110/62 O2 Sat by Pulse 95 97 96 Oximetry 07/26/20 07/26/20 07/26/20 06:00 06:30 06:45 Temperature Pulse Rate 119 H 115 H 115 H Pulse Rate [ From Monitor] Respiratory 14 14 15 Rate Blood Pressure 104/61 111/57 94/56 O2 Sat by Pulse 97 96 95 Oximetry 07/26/20 07/26/20 07/26/20 07:01 07:15 07:30 Temperature Pulse Rate 117 H 121 H 117 H Pulse Rate [ From Monitor] Respiratory 12 12 14 Rate Blood Pressure 102/54 96/57 105/56 O2 Sat by Pulse 95 96 95 Oximetry 07/26/20 07/26/20 07/26/20 07:45 08:00 08:01 Temperature 97.6 F Pulse Rate 118 H 120 H 90 Pulse Rate [ From Monitor] Respiratory 13 10 L Rate Blood Pressure 89/49 126/77 O2 Sat by Pulse 95 97 Oximetry 07/26/20 07/26/20 07/26/20 08:15 08:31 08:45 Temperature Pulse Rate 110 H 111 H 117 H Pulse Rate [ From Monitor] Respiratory 12 12 13 Rate Blood Pressure 85/58 92/68 89/59 O2 Sat by Pulse 96 96 97 Oximetry 07/26/20 07/26/20 07/26/20 09:01 09:02 09:15 Temperature Pulse Rate 107 H 101 H 103 H Pulse Rate [ From Monitor] Respiratory 13 13 Rate Blood Pressure 93/69 93/69 93/69 O2 Sat by Pulse 97 100 100 Oximetry 07/26/20 07/26/20 07/26/20 09:30 09:45 10:00 Temperature Pulse Rate 111 H 118 H 120 H Pulse Rate [ From Monitor] Respiratory 14 14 14 Rate Blood Pressure 100/67 110/59 111/64 O2 Sat by Pulse 100 100 100 Oximetry 07/26/20 07/26/20 07/26/20 10:15 10:30 10:45 Temperature Pulse Rate 118 H 118 H 118 H Pulse Rate [ From Monitor] Respiratory 12 12 11 L Rate Blood Pressure 120/64 121/59 103/60 O2 Sat by Pulse 100 99 100 Oximetry 07/26/20 07/26/20 07/26/20 11:01 11:15 11:30 Temperature Pulse Rate 103 H 112 H 111 H Pulse Rate [ From Monitor] Respiratory 10 L 14 15 Rate Blood Pressure 113/57 118/58 115/70 O2 Sat by Pulse 100 99 100 Oximetry 07/26/20 07/26/20 07/26/20 11:45 12:00 12:15 Temperature 97.9 F Pulse Rate 110 H 115 H 116 H Pulse Rate [ From Monitor] Respiratory 18 16 15 Rate Blood Pressure 118/58 109/46 114/46 O2 Sat by Pulse 100 100 100 Oximetry 07/26/20 07/26/20 07/26/20 12:24 12:30 12:45 Temperature Pulse Rate 117 H 120 H 129 H Pulse Rate [ From Monitor] Respiratory 21 23 Rate Blood Pressure 114/46 107/60 114/70 O2 Sat by Pulse 100 100 99 Oximetry 07/26/20 07/26/20 07/26/20 13:00 13:15 13:30 Temperature 98.9 F Pulse Rate 112 H 104 H 103 H Pulse Rate [ From Monitor] Respiratory 20 22 Rate Blood Pressure 130/65 126/70 126/60 O2 Sat by Pulse 98 98 Oximetry 07/26/20 07/26/20 07/26/20 13:31 13:45 14:00 Temperature Pulse Rate 97 H 93 H 99 H Pulse Rate [ From Monitor] Respiratory 19 20 19 Rate Blood Pressure 126/60 124/53 127/58 O2 Sat by Pulse 99 98 97 Oximetry 07/26/20 14:15 Temperature Pulse Rate 106 H Pulse Rate [ From Monitor] Respiratory Rate Blood Pressure 112/49 O2 Sat by Pulse Oximetry Constitutional: appears uncomfortable, other (morbidly obese, atraumatic, normocephalic, mild resp distress, orally intubated) Eyes: non-icteric ENT: oropharynx moist, other (ETT 23 cm TROY) Neck: supple, no lymphadenopathy, other (Large , short neck) Effort: mildly labored Ascultation: Bilateral: diminished breath sounds, rhonchi Percussion: Bilateral: not dull Cardiovascular: irregular rhythm, other (S1,S2) Gastrointestinal: normoactive bowel sounds, soft, non-tender, non-distended (pro tuberant) Integumentary: rash, other (Femoral CVC, Newell catheter) Extremities: pink and warm, pulses normal, no ischemia or petechiae, edema (trace to 1+) Neurologic: non-focal exam (grossly), pupils equal and round, CN II-XII normal, other (unable to assess, sedated) Psychiatric: other (unable to assess, sedated) CBC and BMP: 07/27/20 04:00 07/26/20 08:46 ABG, PT/INR, D-dimer: ABG ABG pH 7.355 (7.320-7.450) 07/23/20 04:56 POC ABG pCO2 46.9 mmHg (32.0-48.0) 07/23/20 04:56 ABG pCO2 56.4 mm Hg 07/05/20 04:30 POC ABG pO2 75.7 mmHg (83-108) L 07/23/20 04:56 ABG pO2 151.9 mm Hg (80.0-90.0) H 07/05/20 04:30 POC ABG HCO3 25.6 07/23/20 04:56 ABG O2 Saturation 94.8 (0-100) 07/23/20 04:56 PT/INR, D-dimer PT 15.3 Sec. (12.2-14.9) H 07/24/20 20:40 INR 1.21 (0.87-1.13) H 07/24/20 20:40 D-Dimer 6608.00 ng/mlDDU (0-234) H 07/03/20 14:50 Abnormal lab findings: Abnormal Labs 06/17/20 06/17/20 06/17/20 12:33 12:33 12:33 WBC 19.5 H RBC 5.18 H Hgb 15.5 H Hct MCHC RDW Plt Count Lymph % (Auto) 3.8 L [place] % (Auto) Lymph # (Auto) 0.7 L [place] # (Auto) Eos # (Auto) Seg Neutrophils % Seg Neuts % (Manual) 99.0 H Lymphocytes % (Manual) 1.0 L Monocytes % (Manual) Basophils % (Manual) Nucleated RBC % Seg Neutrophils # 18.2 H Seg Neutrophils # Man 19.3 H Lymphocytes # (Manual) 0.2 L Monocytes # (Manual) Eosinophils # (Manual) Basophils # (Manual) PT 16.5 H INR 1.33 H APTT D-Dimer 1025.04 H Heparin Anti-Xa Level ABG pH POC ABG pCO2 POC ABG pO2 ABG pO2 ABG HCO3 ABG Hemoglobin ABG Oxyhemoglobin ABG Sodium ABG Potassium ABG Chloride ABG Glucose Carboxyhemoglobin Sodium 130 L Potassium 3.4 L Chloride 95.0 L Carbon Dioxide BUN 21 H Creatinine Glucose 137 H POC Glucose Lactic Acid Calcium 7.9 L Phosphorus Magnesium Ferritin Direct Bilirubin AST 84 H ALT 67 H Alkaline Phosphatase Lactate Dehydrogenase 437 H Total Creatine Kinase 310 H C-Reactive Protein 27.90 H Total Protein Albumin 2.9 L Triglycerides Arterial Blood Glucose Arterial Blood Ionized Calcium Urine Creatinine Urine Chloride Vancomycin Trough Coronavirus (PCR) Crossmatch 06/17/20 06/17/20 06/17/20 12:33 12:33 14:48 WBC RBC Hgb Hct MCHC RDW Plt Count Lymph % (Auto) [place] % (Auto) Lymph # (Auto) [place] # (Auto) Eos # (Auto) Seg Neutrophils % Seg Neuts % (Manual) Lymphocytes % (Manual) Monocytes % (Manual) Basophils % (Manual) Nucleated RBC % Seg Neutrophils # Seg Neutrophils # Man Lymphocytes # (Manual) Monocytes # (Manual) Eosinophils # (Manual) Basophils # (Manual) PT INR APTT D-Dimer Heparin Anti-Xa Level ABG pH POC ABG pCO2 POC ABG pO2 ABG pO2 ABG HCO3 ABG Hemoglobin ABG Oxyhemoglobin ABG Sodium ABG Potassium ABG Chloride ABG Glucose Carboxyhemoglobin Sodium Potassium Chloride Carbon Dioxide BUN Creatinine Glucose POC Glucose Lactic Acid 2.50 H* 2.20 H* Calcium Phosphorus Magnesium Ferritin 2297.0 H Direct Bilirubin AST ALT Alkaline Phosphatase Lactate Dehydrogenase Total Creatine Kinase C-Reactive Protein Total Protein Albumin Triglycerides Arterial Blood Glucose Arterial Blood Ionized Calcium Urine Creatinine Urine Chloride Vancomycin Trough Coronavirus (PCR) Crossmatch 06/17/20 06/17/20 06/17/20 14:48 14:48 14:48 WBC RBC Hgb Hct MCHC RDW Plt Count Lymph % (Auto) [place] % (Auto) Lymph # (Auto) [place] # (Auto) Eos # (Auto) Seg Neutrophils % Seg Neuts % (Manual) Lymphocytes % (Manual) Monocytes % (Manual) Basophils % (Manual) Nucleated RBC % Seg Neutrophils # Seg Neutrophils # Man Lymphocytes # (Manual) Monocytes # (Manual) Eosinophils # (Manual) Basophils # (Manual) PT INR APTT D-Dimer 939.89 H Heparin Anti-Xa Level ABG pH POC ABG pCO2 POC ABG pO2 ABG pO2 ABG HCO3 ABG Hemoglobin ABG Oxyhemoglobin ABG Sodium ABG Potassium ABG Chloride ABG Glucose Carboxyhemoglobin Sodium Potassium Chloride Carbon Dioxide BUN Creatinine Glucose 141 H POC Glucose Lactic Acid Calcium Phosphorus Magnesium Ferritin > 2000.0 H Direct Bilirubin AST ALT Alkaline Phosphatase Lactate Dehydrogenase 503 H Total Creatine Kinase C-Reactive Protein 24.70 H Total Protein Albumin Triglycerides Arterial Blood Glucose Arterial Blood Ionized Calcium Urine Creatinine Urine Chloride Vancomycin Trough Coronavirus (PCR) Crossmatch 06/17/20 06/17/20 06/17/20 16:54 19:39 23:43 WBC RBC Hgb Hct MCHC RDW Plt Count Lymph % (Auto) [place] % (Auto) Lymph # (Auto) [place] # (Auto) Eos # (Auto) Seg Neutrophils % Seg Neuts % (Manual) Lymphocytes % (Manual) Monocytes % (Manual) Basophils % (Manual) Nucleated RBC % Seg Neutrophils # Seg Neutrophils # Man Lymphocytes # (Manual) Monocytes # (Manual) Eosinophils # (Manual) Basophils # (Manual) PT INR APTT D-Dimer Heparin Anti-Xa Level ABG pH 7.571 H POC ABG pCO2 24.3 L POC ABG pO2 41.6 L ABG pO2 ABG HCO3 ABG Hemoglobin ABG Oxyhemoglobin 84.0 L ABG Sodium 131.0 L ABG Potassium ABG Chloride ABG Glucose 163 H Carboxyhemoglobin Sodium Potassium Chloride Carbon Dioxide BUN Creatinine Glucose POC Glucose 185 H Lactic Acid 2.10 H* Calcium Phosphorus Magnesium Ferritin Direct Bilirubin AST ALT Alkaline Phosphatase Lactate Dehydrogenase Total Creatine Kinase C-Reactive Protein Total Protein Albumin Triglycerides Arterial Blood Glucose 163 H Arterial Blood Ionized Calcium 4.4 L Urine Creatinine Urine Chloride Vancomycin Trough Coronavirus (PCR) Crossmatch 06/18/20 06/18/20 06/18/20 00:17 00:23 03:55 WBC RBC Hgb Hct MCHC RDW Plt Count Lymph % (Auto) [place] % (Auto) Lymph # (Auto) [place] # (Auto) Eos # (Auto) Seg Neutrophils % Seg Neuts % (Manual) Lymphocytes % (Manual) Monocytes % (Manual) Basophils % (Manual) Nucleated RBC % Seg Neutrophils # Seg Neutrophils # Man Lymphocytes # (Manual) Monocytes # (Manual) Eosinophils # (Manual) Basophils # (Manual) PT INR APTT D-Dimer Heparin Anti-Xa Level ABG pH POC ABG pCO2 POC ABG pO2 56.5 L 48.3 L ABG pO2 ABG HCO3 ABG Hemoglobin ABG Oxyhemoglobin 86.3 L 81.7 L ABG Sodium 132.9 L 131.0 L ABG Potassium ABG Chloride ABG Glucose 189 H 161 H Carboxyhemoglobin 0.4 L Sodium Potassium Chloride Carbon Dioxide BUN Creatinine Glucose POC Glucose Lactic Acid 3.80 H* Calcium Phosphorus Magnesium Ferritin Direct Bilirubin AST ALT Alkaline Phosphatase Lactate Dehydrogenase Total Creatine Kinase C-Reactive Protein Total Protein Albumin Triglycerides Arterial Blood Glucose 189 H 161 H Arterial Blood Ionized Calcium 4.3 L 4.2 L Urine Creatinine Urine Chloride Vancomycin Trough Coronavirus (PCR) Crossmatch 06/18/20 06/18/20 06/18/20 05:39 05:39 05:39 WBC 26.2 H RBC Hgb Hct MCHC RDW Plt Count Lymph % (Auto) [place] % (Auto) Lymph # (Auto) [place] # (Auto) Eos # (Auto) Seg Neutrophils % Seg Neuts % (Manual) 90.0 H Lymphocytes % (Manual) 5.0 L Monocytes % (Manual) Basophils % (Manual) Nucleated RBC % Seg Neutrophils # Seg Neutrophils # Man 23.6 H Lymphocytes # (Manual) Monocytes # (Manual) 1.3 H Eosinophils # (Manual) Basophils # (Manual) PT INR APTT D-Dimer Heparin Anti-Xa Level ABG pH POC ABG pCO2 POC ABG pO2 ABG pO2 ABG HCO3 ABG Hemoglobin ABG Oxyhemoglobin ABG Sodium ABG Potassium ABG Chloride ABG Glucose Carboxyhemoglobin Sodium 135 L Potassium Chloride 97.5 L Carbon Dioxide 21 L BUN 39 H Creatinine 1.7 H D Glucose 168 H POC Glucose Lactic Acid 3.40 H* Calcium 7.2 L Phosphorus Magnesium Ferritin Direct Bilirubin AST ALT Alkaline Phosphatase Lactate Dehydrogenase Total Creatine Kinase C-Reactive Protein Total Protein Albumin Triglycerides Arterial Blood Glucose Arterial Blood Ionized Calcium Urine Creatinine Urine Chloride Vancomycin Trough Coronavirus (PCR) Crossmatch 06/18/20 06/18/20 06/18/20 07:24 09:00 10:10 WBC RBC Hgb Hct MCHC RDW Plt Count Lymph % (Auto) [place] % (Auto) Lymph # (Auto) [place] # (Auto) Eos # (Auto) Seg Neutrophils % Seg Neuts % (Manual) Lymphocytes % (Manual) Monocytes % (Manual) Basophils % (Manual) Nucleated RBC % Seg Neutrophils # Seg Neutrophils # Man Lymphocytes # (Manual) Monocytes # (Manual) Eosinophils # (Manual) Basophils # (Manual) PT INR APTT D-Dimer Heparin Anti-Xa Level ABG pH POC ABG pCO2 POC ABG pO2 ABG pO2 ABG HCO3 ABG Hemoglobin ABG Oxyhemoglobin ABG Sodium ABG Potassium ABG Chloride ABG Glucose Carboxyhemoglobin Sodium Potassium Chloride Carbon Dioxide BUN Creatinine Glucose POC Glucose Lactic Acid 2.90 H* 3.20 H* Calcium Phosphorus Magnesium Ferritin Direct Bilirubin AST ALT Alkaline Phosphatase Lactate Dehydrogenase Total Creatine Kinase C-Reactive Protein Total Protein Albumin Triglycerides Arterial Blood Glucose Arterial Blood Ionized Calcium Urine Creatinine Urine Chloride Vancomycin Trough Coronavirus (PCR) Positive A Crossmatch 06/18/20 06/18/20 06/18/20 11:58 14:43 15:00 WBC RBC Hgb Hct MCHC RDW Plt Count Lymph % (Auto) [place] % (Auto) Lymph # (Auto) [place] # (Auto) Eos # (Auto) Seg Neutrophils % Seg Neuts % (Manual) Lymphocytes % (Manual) Monocytes % (Manual) Basophils % (Manual) Nucleated RBC % Seg Neutrophils # Seg Neutrophils # Man Lymphocytes # (Manual) Monocytes # (Manual) Eosinophils # (Manual) Basophils # (Manual) PT INR APTT D-Dimer Heparin Anti-Xa Level ABG pH 7.303 L POC ABG pCO2 POC ABG pO2 82.3 L ABG pO2 ABG HCO3 ABG Hemoglobin ABG Oxyhemoglobin ABG Sodium 135.3 L ABG Potassium ABG Chloride ABG Glucose 215 H Carboxyhemoglobin 0.3 L Sodium Potassium Chloride Carbon Dioxide BUN Creatinine Glucose POC Glucose 209 H Lactic Acid Calcium Phosphorus Magnesium Ferritin Direct Bilirubin AST ALT Alkaline Phosphatase Lactate Dehydrogenase Total Creatine Kinase C-Reactive Protein Total Protein Albumin Triglycerides Arterial Blood Glucose 215 H Arterial Blood Ionized Calcium 4.2 L Urine Creatinine 192.4 H Urine Chloride 31.1 L Vancomycin Trough Coronavirus (PCR) Crossmatch 06/18/20 06/18/20 06/18/20 17:16 19:44 20:33 WBC RBC Hgb Hct MCHC RDW Plt Count Lymph % (Auto) [place] % (Auto) Lymph # (Auto) [place] # (Auto) Eos # (Auto) Seg Neutrophils % Seg Neuts % (Manual) Lymphocytes % (Manual) Monocytes % (Manual) Basophils % (Manual) Nucleated RBC % Seg Neutrophils # Seg Neutrophils # Man Lymphocytes # (Manual) Monocytes # (Manual) Eosinophils # (Manual) Basophils # (Manual) PT INR APTT D-Dimer Heparin Anti-Xa Level ABG pH POC ABG pCO2 POC ABG pO2 ABG pO2 ABG HCO3 ABG Hemoglobin ABG Oxyhemoglobin ABG Sodium ABG Potassium ABG Chloride ABG Glucose Carboxyhemoglobin Sodium Potassium Chloride Carbon Dioxide BUN Creatinine Glucose POC Glucose 182 H Lactic Acid 3.00 H* Calcium Phosphorus Magnesium 2.70 H Ferritin Direct Bilirubin AST ALT Alkaline Phosphatase Lactate Dehydrogenase Total Creatine Kinase C-Reactive Protein Total Protein Albumin Triglycerides Arterial Blood Glucose Arterial Blood Ionized Calcium Urine Creatinine Urine Chloride Vancomycin Trough Coronavirus (PCR) Crossmatch 06/18/20 06/19/20 06/19/20 23:43 04:00 04:00 WBC 31.6 H RBC Hgb Hct MCHC RDW Plt Count Lymph % (Auto) [place] % (Auto) Lymph # (Auto) [place] # (Auto) Eos # (Auto) Seg Neutrophils % Seg Neuts % (Manual) 98.0 H Lymphocytes % (Manual) 0.5 L Monocytes % (Manual) Basophils % (Manual) Nucleated RBC % Seg Neutrophils # Seg Neutrophils # Man 31.0 H Lymphocytes # (Manual) 0.2 L Monocytes # (Manual) Eosinophils # (Manual) Basophils # (Manual) PT INR APTT D-Dimer Heparin Anti-Xa Level ABG pH POC ABG pCO2 POC ABG pO2 ABG pO2 ABG HCO3 ABG Hemoglobin ABG Oxyhemoglobin ABG Sodium ABG Potassium ABG Chloride ABG Glucose Carboxyhemoglobin Sodium Potassium Chloride Carbon Dioxide BUN 56 H Creatinine 1.6 H Glucose 176 H POC Glucose 149 H Lactic Acid Calcium 7.0 L Phosphorus Magnesium Ferritin Direct Bilirubin AST 244 H ALT 159 H Alkaline Phosphatase Lactate Dehydrogenase Total Creatine Kinase C-Reactive Protein Total Protein 4.9 L D Albumin 2.5 L Triglycerides Arterial Blood Glucose Arterial Blood Ionized Calcium Urine Creatinine Urine Chloride Vancomycin Trough Coronavirus (PCR) Crossmatch 06/19/20 06/19/20 06/19/20 04:00 05:44 11:42 WBC RBC Hgb Hct MCHC RDW Plt Count Lymph % (Auto) [place] % (Auto) Lymph # (Auto) [place] # (Auto) Eos # (Auto) Seg Neutrophils % Seg Neuts % (Manual) Lymphocytes % (Manual) Monocytes % (Manual) Basophils % (Manual) Nucleated RBC % Seg Neutrophils # Seg Neutrophils # Man Lymphocytes # (Manual) Monocytes # (Manual) Eosinophils # (Manual) Basophils # (Manual) PT INR APTT D-Dimer Heparin Anti-Xa Level ABG pH 7.265 L POC ABG pCO2 51.8 H POC ABG pO2 65.1 L ABG pO2 ABG HCO3 ABG Hemoglobin ABG Oxyhemoglobin ABG Sodium ABG Potassium ABG Chloride ABG Glucose 184 H Carboxyhemoglobin Sodium Potassium Chloride Carbon Dioxide BUN Creatinine Glucose POC Glucose 156 H 191 H Lactic Acid Calcium Phosphorus Magnesium Ferritin Direct Bilirubin AST ALT Alkaline Phosphatase Lactate Dehydrogenase Total Creatine Kinase C-Reactive Protein Total Protein Albumin Triglycerides Arterial Blood Glucose 184 H Arterial Blood Ionized Calcium 4.3 L Urine Creatinine Urine Chloride Vancomycin Trough Coronavirus (PCR) Crossmatch 06/19/20 06/19/20 06/19/20 12:30 17:16 18:36 WBC RBC Hgb Hct MCHC RDW Plt Count Lymph % (Auto) [place] % (Auto) Lymph # (Auto) [place] # (Auto) Eos # (Auto) Seg Neutrophils % Seg Neuts % (Manual) Lymphocytes % (Manual) Monocytes % (Manual) Basophils % (Manual) Nucleated RBC % Seg Neutrophils # Seg Neutrophils # Man Lymphocytes # (Manual) Monocytes # (Manual) Eosinophils # (Manual) Basophils # (Manual) PT 16.4 H INR 1.32 H APTT D-Dimer Heparin Anti-Xa Level ABG pH 7.088 L POC ABG pCO2 78.1 H POC ABG pO2 208.3 H ABG pO2 ABG HCO3 ABG Hemoglobin ABG Oxyhemoglobin 98.3 H ABG Sodium ABG Potassium 5.0 H ABG Chloride ABG Glucose 182 H Carboxyhemoglobin 0.4 L Sodium Potassium Chloride Carbon Dioxide BUN Creatinine Glucose POC Glucose 154 H Lactic Acid Calcium Phosphorus Magnesium Ferritin Direct Bilirubin AST ALT Alkaline Phosphatase Lactate Dehydrogenase Total Creatine Kinase C-Reactive Protein Total Protein Albumin Triglycerides Arterial Blood Glucose 182 H Arterial Blood Ionized Calcium 4.3 L Urine Creatinine Urine Chloride Vancomycin Trough Coronavirus (PCR) Crossmatch 06/19/20 06/20/20 06/20/20 23:32 03:00 05:19 WBC RBC Hgb Hct MCHC RDW Plt Count Lymph % (Auto) [place] % (Auto) Lymph # (Auto) [place] # (Auto) Eos # (Auto) Seg Neutrophils % Seg Neuts % (Manual) Lymphocytes % (Manual) Monocytes % (Manual) Basophils % (Manual) Nucleated RBC % Seg Neutrophils # Seg Neutrophils # Man Lymphocytes # (Manual) Monocytes # (Manual) Eosinophils # (Manual) Basophils # (Manual) PT INR APTT D-Dimer Heparin Anti-Xa Level 0.77 H ABG pH POC ABG pCO2 POC ABG pO2 ABG pO2 ABG HCO3 ABG Hemoglobin ABG Oxyhemoglobin ABG Sodium ABG Potassium ABG Chloride ABG Glucose Carboxyhemoglobin Sodium Potassium Chloride Carbon Dioxide BUN Creatinine Glucose POC Glucose 201 H 190 H Lactic Acid Calcium Phosphorus Magnesium Ferritin Direct Bilirubin AST ALT Alkaline Phosphatase Lactate Dehydrogenase Total Creatine Kinase C-Reactive Protein Total Protein Albumin Triglycerides Arterial Blood Glucose Arterial Blood Ionized Calcium Urine Creatinine Urine Chloride Vancomycin Trough Coronavirus (PCR) Crossmatch 06/20/20 06/20/20 06/20/20 08:25 08:25 11:36 WBC RBC Hgb Hct MCHC RDW Plt Count Lymph % (Auto) [place] % (Auto) Lymph # (Auto) [place] # (Auto) Eos # (Auto) Seg Neutrophils % Seg Neuts % (Manual) Lymphocytes % (Manual) Monocytes % (Manual) Basophils % (Manual) Nucleated RBC % Seg Neutrophils # Seg Neutrophils # Man Lymphocytes # (Manual) Monocytes # (Manual) Eosinophils # (Manual) Basophils # (Manual) PT INR APTT D-Dimer Heparin Anti-Xa Level ABG pH POC ABG pCO2 POC ABG pO2 ABG pO2 ABG HCO3 ABG Hemoglobin ABG Oxyhemoglobin ABG Sodium ABG Potassium ABG Chloride ABG Glucose Carboxyhemoglobin Sodium 135 L Potassium 5.4 H Chloride 109.2 H Carbon Dioxide 19 L BUN 68 H Creatinine 2.5 H D Glucose 201 H POC Glucose 184 H Lactic Acid Calcium 5.5 L* D Phosphorus Magnesium Ferritin Direct Bilirubin AST 123 H ALT 86 H Alkaline Phosphatase Lactate Dehydrogenase Total Creatine Kinase C-Reactive Protein Total Protein 4.6 L Albumin 1.5 L Triglycerides Arterial Blood Glucose Arterial Blood Ionized Calcium Urine Creatinine Urine Chloride Vancomycin Trough 22.7 H Coronavirus (PCR) Crossmatch 06/20/20 06/20/20 06/20/20 11:40 17:28 20:00 WBC RBC Hgb Hct MCHC RDW Plt Count Lymph % (Auto) [place] % (Auto) Lymph # (Auto) [place] # (Auto) Eos # (Auto) Seg Neutrophils % Seg Neuts % (Manual) Lymphocytes % (Manual) Monocytes % (Manual) Basophils % (Manual) Nucleated RBC % Seg Neutrophils # Seg Neutrophils # Man Lymphocytes # (Manual) Monocytes # (Manual) Eosinophils # (Manual) Basophils # (Manual) PT INR APTT D-Dimer Heparin Anti-Xa Level 0.89 H ABG pH 7.099 L POC ABG pCO2 61.1 H POC ABG pO2 ABG pO2 ABG HCO3 ABG Hemoglobin ABG Oxyhemoglobin ABG Sodium ABG Potassium 5.0 H ABG Chloride 111.0 H ABG Glucose 200 H Carboxyhemoglobin 0.4 L Sodium Potassium Chloride Carbon Dioxide BUN Creatinine Glucose POC Glucose 165 H Lactic Acid Calcium Phosphorus Magnesium Ferritin Direct Bilirubin AST ALT Alkaline Phosphatase Lactate Dehydrogenase Total Creatine Kinase C-Reactive Protein Total Protein Albumin Triglycerides Arterial Blood Glucose 200 H Arterial Blood Ionized Calcium 4.2 L Urine Creatinine Urine Chloride Vancomycin Trough Coronavirus (PCR) Crossmatch 06/20/20 06/21/20 06/21/20 23:29 05:00 05:20 WBC RBC Hgb Hct MCHC RDW Plt Count Lymph % (Auto) [place] % (Auto) Lymph # (Auto) [place] # (Auto) Eos # (Auto) Seg Neutrophils % Seg Neuts % (Manual) Lymphocytes % (Manual) Monocytes % (Manual) Basophils % (Manual) Nucleated RBC % Seg Neutrophils # Seg Neutrophils # Man Lymphocytes # (Manual) Monocytes # (Manual) Eosinophils # (Manual) Basophils # (Manual) PT INR APTT D-Dimer Heparin Anti-Xa Level ABG pH POC ABG pCO2 POC ABG pO2 ABG pO2 ABG HCO3 ABG Hemoglobin ABG Oxyhemoglobin ABG Sodium ABG Potassium ABG Chloride ABG Glucose Carboxyhemoglobin Sodium Potassium Chloride 112.0 H Carbon Dioxide 20 L BUN 92 H Creatinine 3.9 H D Glucose 214 H POC Glucose 145 H 191 H Lactic Acid Calcium 6.5 L D Phosphorus Magnesium Ferritin Direct Bilirubin AST 98 H ALT 84 H Alkaline Phosphatase Lactate Dehydrogenase Total Creatine Kinase C-Reactive Protein Total Protein 4.6 L Albumin 2.1 L Triglycerides 180 H Arterial Blood Glucose Arterial Blood Ionized Calcium Urine Creatinine Urine Chloride Vancomycin Trough Coronavirus (PCR) Crossmatch 06/21/20 06/21/20 06/21/20 08:56 11:12 12:43 WBC RBC Hgb Hct MCHC RDW Plt Count Lymph % (Auto) [place] % (Auto) Lymph # (Auto) [place] # (Auto) Eos # (Auto) Seg Neutrophils % Seg Neuts % (Manual) Lymphocytes % (Manual) Monocytes % (Manual) Basophils % (Manual) Nucleated RBC % Seg Neutrophils # Seg Neutrophils # Man Lymphocytes # (Manual) Monocytes # (Manual) Eosinophils # (Manual) Basophils # (Manual) PT INR APTT D-Dimer Heparin Anti-Xa Level 0.28 L ABG pH 7.184 L POC ABG pCO2 48.3 H POC ABG pO2 172.1 H ABG pO2 ABG HCO3 ABG Hemoglobin ABG Oxyhemoglobin 98.7 H ABG Sodium ABG Potassium 4.9 H ABG Chloride 112.0 H ABG Glucose 196 H Carboxyhemoglobin 0.2 L Sodium Potassium Chloride Carbon Dioxide BUN Creatinine Glucose POC Glucose 177 H Lactic Acid Calcium Phosphorus Magnesium Ferritin Direct Bilirubin AST ALT Alkaline Phosphatase Lactate Dehydrogenase Total Creatine Kinase C-Reactive Protein Total Protein Albumin Triglycerides Arterial Blood Glucose 196 H Arterial Blood Ionized Calcium 4.1 L Urine Creatinine Urine Chloride Vancomycin Trough Coronavirus (PCR) Crossmatch 06/21/20 06/21/20 06/22/20 16:31 Unknown 00:12 WBC RBC Hgb Hct MCHC RDW Plt Count Lymph % (Auto) [place] % (Auto) Lymph # (Auto) [place] # (Auto) Eos # (Auto) Seg Neutrophils % Seg Neuts % (Manual) Lymphocytes % (Manual) Monocytes % (Manual) Basophils % (Manual) Nucleated RBC % Seg Neutrophils # Seg Neutrophils # Man Lymphocytes # (Manual) Monocytes # (Manual) Eosinophils # (Manual) Basophils # (Manual) PT INR APTT D-Dimer Heparin Anti-Xa Level 0.78 H ABG pH POC ABG pCO2 POC ABG pO2 ABG pO2 ABG HCO3 ABG Hemoglobin ABG Oxyhemoglobin ABG Sodium ABG Potassium ABG Chloride ABG Glucose Carboxyhemoglobin Sodium Potassium Chloride Carbon Dioxide BUN Creatinine Glucose POC Glucose 150 H 173 H Lactic Acid Calcium Phosphorus Magnesium Ferritin Direct Bilirubin AST ALT Alkaline Phosphatase Lactate Dehydrogenase Total Creatine Kinase C-Reactive Protein Total Protein Albumin Triglycerides Arterial Blood Glucose Arterial Blood Ionized Calcium Urine Creatinine Urine Chloride Vancomycin Trough Coronavirus (PCR) Crossmatch 06/22/20 06/22/20 06/22/20 04:00 05:04 05:30 WBC 33.9 H RBC Hgb 11.7 L Hct 35.2 L MCHC RDW 15.8 H Plt Count Lymph % (Auto) [place] % (Auto) Lymph # (Auto) [place] # (Auto) Eos # (Auto) Seg Neutrophils % Seg Neuts % (Manual) 93.0 H Lymphocytes % (Manual) 5.0 L Monocytes % (Manual) Basophils % (Manual) Nucleated RBC % Seg Neutrophils # Seg Neutrophils # Man 31.5 H Lymphocytes # (Manual) Monocytes # (Manual) Eosinophils # (Manual) Basophils # (Manual) PT INR APTT D-Dimer Heparin Anti-Xa Level ABG pH 7.169 L POC ABG pCO2 POC ABG pO2 ABG pO2 ABG HCO3 ABG Hemoglobin ABG Oxyhemoglobin ABG Sodium ABG Potassium 5.1 H ABG Chloride 112.0 H ABG Glucose 186 H Carboxyhemoglobin 0.3 L Sodium Potassium Chloride Carbon Dioxide BUN Creatinine Glucose POC Glucose 161 H Lactic Acid Calcium Phosphorus Magnesium Ferritin Direct Bilirubin AST ALT Alkaline Phosphatase Lactate Dehydrogenase Total Creatine Kinase C-Reactive Protein Total Protein Albumin Triglycerides Arterial Blood Glucose 186 H Arterial Blood Ionized Calcium 4.1 L Urine Creatinine Urine Chloride Vancomycin Trough Coronavirus (PCR) Crossmatch 06/22/20 06/22/20 06/22/20 05:30 11:39 13:27 WBC RBC Hgb Hct MCHC RDW Plt Count Lymph % (Auto) [place] % (Auto) Lymph # (Auto) [place] # (Auto) Eos # (Auto) Seg Neutrophils % Seg Neuts % (Manual) Lymphocytes % (Manual) Monocytes % (Manual) Basophils % (Manual) Nucleated RBC % Seg Neutrophils # Seg Neutrophils # Man Lymphocytes # (Manual) Monocytes # (Manual) Eosinophils # (Manual) Basophils # (Manual) PT INR APTT D-Dimer Heparin Anti-Xa Level ABG pH POC ABG pCO2 POC ABG pO2 ABG pO2 ABG HCO3 ABG Hemoglobin ABG Oxyhemoglobin ABG Sodium ABG Potassium ABG Chloride ABG Glucose Carboxyhemoglobin Sodium Potassium 5.7 H Chloride 111.3 H Carbon Dioxide 18 L BUN 112 H Creatinine 5.0 H Glucose 173 H POC Glucose 172 H 176 H Lactic Acid Calcium 6.7 L Phosphorus Magnesium Ferritin Direct Bilirubin AST ALT Alkaline Phosphatase Lactate Dehydrogenase Total Creatine Kinase C-Reactive Protein Total Protein Albumin Triglycerides Arterial Blood Glucose Arterial Blood Ionized Calcium Urine Creatinine Urine Chloride Vancomycin Trough Coronavirus (PCR) Crossmatch 06/22/20 06/22/20 06/22/20 14:37 17:00 17:40 WBC RBC Hgb Hct MCHC RDW Plt Count Lymph % (Auto) [place] % (Auto) Lymph # (Auto) [place] # (Auto) Eos # (Auto) Seg Neutrophils % Seg Neuts % (Manual) Lymphocytes % (Manual) Monocytes % (Manual) Basophils % (Manual) Nucleated RBC % Seg Neutrophils # Seg Neutrophils # Man Lymphocytes # (Manual) Monocytes # (Manual) Eosinophils # (Manual) Basophils # (Manual) PT INR APTT D-Dimer Heparin Anti-Xa Level 1.32 H ABG pH POC ABG pCO2 POC ABG pO2 ABG pO2 ABG HCO3 ABG Hemoglobin ABG Oxyhemoglobin ABG Sodium ABG Potassium ABG Chloride ABG Glucose Carboxyhemoglobin Sodium Potassium Chloride Carbon Dioxide BUN Creatinine Glucose POC Glucose 171 H Lactic Acid Calcium Phosphorus Magnesium Ferritin Direct Bilirubin AST ALT Alkaline Phosphatase Lactate Dehydrogenase Total Creatine Kinase C-Reactive Protein 5.30 H Total Protein Albumin Triglycerides Arterial Blood Glucose Arterial Blood Ionized Calcium Urine Creatinine Urine Chloride Vancomycin Trough Coronavirus (PCR) Crossmatch 06/22/20 06/23/20 06/23/20 23:36 02:13 02:41 WBC RBC Hgb Hct MCHC RDW Plt Count Lymph % (Auto) [place] % (Auto) Lymph # (Auto) [place] # (Auto) Eos # (Auto) Seg Neutrophils % Seg Neuts % (Manual) Lymphocytes % (Manual) Monocytes % (Manual) Basophils % (Manual) Nucleated RBC % Seg Neutrophils # Seg Neutrophils # Man Lymphocytes # (Manual) Monocytes # (Manual) Eosinophils # (Manual) Basophils # (Manual) PT INR APTT D-Dimer Heparin Anti-Xa Level 0.21 L ABG pH 7.318 L POC ABG pCO2 POC ABG pO2 157.5 H ABG pO2 ABG HCO3 ABG Hemoglobin ABG Oxyhemoglobin ABG Sodium 135.6 L ABG Potassium 4.6 H ABG Chloride 110.0 H ABG Glucose 169 H Carboxyhemoglobin Sodium Potassium Chloride Carbon Dioxide BUN Creatinine Glucose POC Glucose 155 H Lactic Acid Calcium Phosphorus Magnesium Ferritin Direct Bilirubin AST ALT Alkaline Phosphatase Lactate Dehydrogenase Total Creatine Kinase C-Reactive Protein Total Protein Albumin Triglycerides Arterial Blood Glucose 169 H Arterial Blood Ionized Calcium Urine Creatinine Urine Chloride Vancomycin Trough Coronavirus (PCR) Crossmatch 06/23/20 06/23/20 06/23/20 04:00 04:00 05:24 WBC 27.4 H RBC Hgb 11.3 L Hct 33.8 L MCHC RDW Plt Count Lymph % (Auto) [place] % (Auto) Lymph # (Auto) [place] # (Auto) Eos # (Auto) Seg Neutrophils % Seg Neuts % (Manual) 93.0 H Lymphocytes % (Manual) 1.0 L Monocytes % (Manual) Basophils % (Manual) Nucleated RBC % 1.0 H Seg Neutrophils # Seg Neutrophils # Man 25.5 H Lymphocytes # (Manual) 0.3 L Monocytes # (Manual) 1.1 H Eosinophils # (Manual) Basophils # (Manual) PT INR APTT D-Dimer Heparin Anti-Xa Level ABG pH POC ABG pCO2 POC ABG pO2 ABG pO2 ABG HCO3 ABG Hemoglobin ABG Oxyhemoglobin ABG Sodium ABG Potassium ABG Chloride ABG Glucose Carboxyhemoglobin Sodium Potassium Chloride 107.6 H Carbon Dioxide 20 L BUN 100 H Creatinine 4.7 H Glucose 168 H POC Glucose 151 H Lactic Acid Calcium Phosphorus Magnesium Ferritin Direct Bilirubin AST ALT Alkaline Phosphatase Lactate Dehydrogenase Total Creatine Kinase C-Reactive Protein Total Protein Albumin Triglycerides Arterial Blood Glucose Arterial Blood Ionized Calcium Urine Creatinine Urine Chloride Vancomycin Trough Coronavirus (PCR) Crossmatch 06/23/20 06/23/20 06/23/20 11:30 17:18 23:50 WBC RBC Hgb Hct MCHC RDW Plt Count Lymph % (Auto) [place] % (Auto) Lymph # (Auto) [place] # (Auto) Eos # (Auto) Seg Neutrophils % Seg Neuts % (Manual) Lymphocytes % (Manual) Monocytes % (Manual) Basophils % (Manual) Nucleated RBC % Seg Neutrophils # Seg Neutrophils # Man Lymphocytes # (Manual) Monocytes # (Manual) Eosinophils # (Manual) Basophils # (Manual) PT INR APTT D-Dimer Heparin Anti-Xa Level ABG pH POC ABG pCO2 POC ABG pO2 ABG pO2 ABG HCO3 ABG Hemoglobin ABG Oxyhemoglobin ABG Sodium ABG Potassium ABG Chloride ABG Glucose Carboxyhemoglobin Sodium Potassium Chloride Carbon Dioxide BUN Creatinine Glucose POC Glucose 157 H 156 H 162 H Lactic Acid Calcium Phosphorus Magnesium Ferritin Direct Bilirubin AST ALT Alkaline Phosphatase Lactate Dehydrogenase Total Creatine Kinase C-Reactive Protein Total Protein Albumin Triglycerides Arterial Blood Glucose Arterial Blood Ionized Calcium Urine Creatinine Urine Chloride Vancomycin Trough Coronavirus (PCR) Crossmatch 06/24/20 06/24/20 06/24/20 04:41 05:57 06:30 WBC 34.3 H RBC Hgb 10.9 L Hct 32.6 L MCHC RDW Plt Count Lymph % (Auto) 2.0 L [place] % (Auto) Lymph # (Auto) 0.7 L [place] # (Auto) 1.2 H Eos # (Auto) Seg Neutrophils % Seg Neuts % (Manual) 96.0 H Lymphocytes % (Manual) 3.0 L Monocytes % (Manual) Basophils % (Manual) Nucleated RBC % Seg Neutrophils # 32.3 H Seg Neutrophils # Man 32.9 H Lymphocytes # (Manual) 1.0 L Monocytes # (Manual) Eosinophils # (Manual) Basophils # (Manual) PT INR APTT D-Dimer Heparin Anti-Xa Level ABG pH POC ABG pCO2 POC ABG pO2 71.1 L ABG pO2 ABG HCO3 ABG Hemoglobin ABG Oxyhemoglobin 92.4 L ABG Sodium 115.6 L ABG Potassium ABG Chloride ABG Glucose 159 H Carboxyhemoglobin Sodium Potassium Chloride Carbon Dioxide BUN Creatinine Glucose POC Glucose 143 H Lactic Acid Calcium Phosphorus Magnesium Ferritin Direct Bilirubin AST ALT Alkaline Phosphatase Lactate Dehydrogenase Total Creatine Kinase C-Reactive Protein Total Protein Albumin Triglycerides Arterial Blood Glucose 159 H Arterial Blood Ionized Calcium 4.2 L Urine Creatinine Urine Chloride Vancomycin Trough Coronavirus (PCR) Crossmatch 06/24/20 06/24/20 06/24/20 07:03 09:37 11:56 WBC RBC Hgb Hct MCHC RDW Plt Count Lymph % (Auto) [place] % (Auto) Lymph # (Auto) [place] # (Auto) Eos # (Auto) Seg Neutrophils % Seg Neuts % (Manual) Lymphocytes % (Manual) Monocytes % (Manual) Basophils % (Manual) Nucleated RBC % Seg Neutrophils # Seg Neutrophils # Man Lymphocytes # (Manual) Monocytes # (Manual) Eosinophils # (Manual) Basophils # (Manual) PT INR APTT D-Dimer Heparin Anti-Xa Level 0.26 L ABG pH POC ABG pCO2 POC ABG pO2 ABG pO2 ABG HCO3 ABG Hemoglobin ABG Oxyhemoglobin ABG Sodium ABG Potassium ABG Chloride ABG Glucose Carboxyhemoglobin Sodium Potassium 5.1 H Chloride Carbon Dioxide BUN 103 H Creatinine 5.0 H Glucose 163 H POC Glucose 149 H Lactic Acid Calcium 7.6 L Phosphorus Magnesium Ferritin Direct Bilirubin AST ALT Alkaline Phosphatase Lactate Dehydrogenase Total Creatine Kinase C-Reactive Protein Total Protein Albumin Triglycerides Arterial Blood Glucose Arterial Blood Ionized Calcium Urine Creatinine Urine Chloride Vancomycin Trough Coronavirus (PCR) Crossmatch 06/24/20 06/25/20 06/25/20 18:09 01:05 03:00 WBC RBC Hgb 10.6 L Hct 32.1 L MCHC RDW Plt Count Lymph % (Auto) [place] % (Auto) Lymph # (Auto) [place] # (Auto) Eos # (Auto) Seg Neutrophils % Seg Neuts % (Manual) Lymphocytes % (Manual) Monocytes % (Manual) Basophils % (Manual) Nucleated RBC % Seg Neutrophils # Seg Neutrophils # Man Lymphocytes # (Manual) Monocytes # (Manual) Eosinophils # (Manual) Basophils # (Manual) PT INR APTT D-Dimer Heparin Anti-Xa Level ABG pH POC ABG pCO2 POC ABG pO2 ABG pO2 ABG HCO3 ABG Hemoglobin ABG Oxyhemoglobin ABG Sodium ABG Potassium ABG Chloride ABG Glucose Carboxyhemoglobin Sodium Potassium Chloride Carbon Dioxide BUN Creatinine Glucose POC Glucose 141 H 137 H Lactic Acid Calcium Phosphorus Magnesium Ferritin Direct Bilirubin AST ALT Alkaline Phosphatase Lactate Dehydrogenase Total Creatine Kinase C-Reactive Protein Total Protein Albumin Triglycerides Arterial Blood Glucose Arterial Blood Ionized Calcium Urine Creatinine Urine Chloride Vancomycin Trough Coronavirus (PCR) Crossmatch 06/25/20 06/25/20 06/25/20 03:48 05:17 12:08 WBC RBC Hgb Hct MCHC RDW Plt Count Lymph % (Auto) [place] % (Auto) Lymph # (Auto) [place] # (Auto) Eos # (Auto) Seg Neutrophils % Seg Neuts % (Manual) Lymphocytes % (Manual) Monocytes % (Manual) Basophils % (Manual) Nucleated RBC % Seg Neutrophils # Seg Neutrophils # Man Lymphocytes # (Manual) Monocytes # (Manual) Eosinophils # (Manual) Basophils # (Manual) PT INR APTT D-Dimer Heparin Anti-Xa Level ABG pH POC ABG pCO2 29.4 L POC ABG pO2 67.1 L ABG pO2 ABG HCO3 ABG Hemoglobin 11.5 L ABG Oxyhemoglobin ABG Sodium 124.1 L ABG Potassium 4.6 H ABG Chloride ABG Glucose 159 H Carboxyhemoglobin Sodium Potassium Chloride Carbon Dioxide BUN Creatinine Glucose POC Glucose 149 H 150 H Lactic Acid Calcium Phosphorus Magnesium Ferritin Direct Bilirubin AST ALT Alkaline Phosphatase Lactate Dehydrogenase Total Creatine Kinase C-Reactive Protein Total Protein Albumin Triglycerides Arterial Blood Glucose 159 H Arterial Blood Ionized Calcium 4.2 L Urine Creatinine Urine Chloride Vancomycin Trough Coronavirus (PCR) Crossmatch 06/25/20 06/25/20 06/25/20 16:27 16:35 17:27 WBC RBC Hgb Hct MCHC RDW Plt Count Lymph % (Auto) [place] % (Auto) Lymph # (Auto) [place] # (Auto) Eos # (Auto) Seg Neutrophils % Seg Neuts % (Manual) Lymphocytes % (Manual) Monocytes % (Manual) Basophils % (Manual) Nucleated RBC % Seg Neutrophils # Seg Neutrophils # Man Lymphocytes # (Manual) Monocytes # (Manual) Eosinophils # (Manual) Basophils # (Manual) PT INR APTT D-Dimer Heparin Anti-Xa Level < 0.10 L ABG pH POC ABG pCO2 POC ABG pO2 ABG pO2 ABG HCO3 ABG Hemoglobin ABG Oxyhemoglobin ABG Sodium ABG Potassium ABG Chloride ABG Glucose Carboxyhemoglobin Sodium Potassium Chloride Carbon Dioxide BUN Creatinine Glucose POC Glucose 143 H 156 H Lactic Acid Calcium Phosphorus Magnesium Ferritin Direct Bilirubin AST ALT Alkaline Phosphatase Lactate Dehydrogenase Total Creatine Kinase C-Reactive Protein Total Protein Albumin Triglycerides Arterial Blood Glucose Arterial Blood Ionized Calcium Urine Creatinine Urine Chloride Vancomycin Trough Coronavirus (PCR) Crossmatch 06/25/20 06/25/20 06/25/20 20:00 20:55 23:10 WBC 32.7 H RBC 3.06 L Hgb 9.0 L 9.5 L Hct 26.7 L 28.6 L MCHC RDW Plt Count Lymph % (Auto) [place] % (Auto) Lymph # (Auto) [place] # (Auto) Eos # (Auto) Seg Neutrophils % Seg Neuts % (Manual) Lymphocytes % (Manual) 2.0 L Monocytes % (Manual) Basophils % (Manual) Nucleated RBC % Seg Neutrophils # Seg Neutrophils # Man 30.7 H Lymphocytes # (Manual) 0.7 L Monocytes # (Manual) 1.3 H Eosinophils # (Manual) Basophils # (Manual) PT 17.7 H INR 1.47 H APTT 65.8 H* D-Dimer Heparin Anti-Xa Level ABG pH POC ABG pCO2 POC ABG pO2 ABG pO2 ABG HCO3 ABG Hemoglobin ABG Oxyhemoglobin ABG Sodium ABG Potassium ABG Chloride ABG Glucose Carboxyhemoglobin Sodium Potassium Chloride Carbon Dioxide BUN Creatinine Glucose POC Glucose Lactic Acid Calcium Phosphorus Magnesium Ferritin Direct Bilirubin AST ALT Alkaline Phosphatase Lactate Dehydrogenase Total Creatine Kinase C-Reactive Protein Total Protein Albumin Triglycerides Arterial Blood Glucose Arterial Blood Ionized Calcium Urine Creatinine Urine Chloride Vancomycin Trough Coronavirus (PCR) Crossmatch 06/25/20 06/26/20 06/26/20 23:14 01:30 03:25 WBC RBC Hgb Hct MCHC RDW Plt Count Lymph % (Auto) [place] % (Auto) Lymph # (Auto) [place] # (Auto) Eos # (Auto) Seg Neutrophils % Seg Neuts % (Manual) Lymphocytes % (Manual) Monocytes % (Manual) Basophils % (Manual) Nucleated RBC % Seg Neutrophils # Seg Neutrophils # Man Lymphocytes # (Manual) Monocytes # (Manual) Eosinophils # (Manual) Basophils # (Manual) PT INR APTT D-Dimer Heparin Anti-Xa Level < 0.10 L ABG pH POC ABG pCO2 POC ABG pO2 ABG pO2 ABG HCO3 ABG Hemoglobin 11.8 L ABG Oxyhemoglobin ABG Sodium 127.1 L ABG Potassium 5.4 H ABG Chloride ABG Glucose 155 H Carboxyhemoglobin 0.3 L Sodium Potassium Chloride Carbon Dioxide BUN Creatinine Glucose POC Glucose 148 H Lactic Acid Calcium Phosphorus Magnesium Ferritin Direct Bilirubin AST ALT Alkaline Phosphatase Lactate Dehydrogenase Total Creatine Kinase C-Reactive Protein Total Protein Albumin Triglycerides Arterial Blood Glucose 155 H Arterial Blood Ionized Calcium 4.2 L Urine Creatinine Urine Chloride Vancomycin Trough Coronavirus (PCR) Crossmatch 06/26/20 06/26/20 06/26/20 03:59 05:14 05:47 WBC 36.5 H RBC 3.26 L Hgb 9.7 L Hct 28.2 L MCHC RDW Plt Count Lymph % (Auto) [place] % (Auto) Lymph # (Auto) [place] # (Auto) Eos # (Auto) Seg Neutrophils % Seg Neuts % (Manual) 92.0 H Lymphocytes % (Manual) 4.0 L Monocytes % (Manual) Basophils % (Manual) Nucleated RBC % Seg Neutrophils # Seg Neutrophils # Man 33.6 H Lymphocytes # (Manual) Monocytes # (Manual) Eosinophils # (Manual) Basophils # (Manual) PT INR APTT D-Dimer Heparin Anti-Xa Level ABG pH POC ABG pCO2 POC ABG pO2 ABG pO2 ABG HCO3 ABG Hemoglobin ABG Oxyhemoglobin ABG Sodium ABG Potassium ABG Chloride ABG Glucose Carboxyhemoglobin Sodium Potassium 5.9 H Chloride Carbon Dioxide 20 L BUN 144 H Creatinine 6.4 H Glucose 149 H POC Glucose 128 H Lactic Acid Calcium 7.6 L Phosphorus Magnesium Ferritin Direct Bilirubin AST ALT Alkaline Phosphatase Lactate Dehydrogenase Total Creatine Kinase C-Reactive Protein Total Protein Albumin Triglycerides Arterial Blood Glucose Arterial Blood Ionized Calcium Urine Creatinine Urine Chloride Vancomycin Trough Coronavirus (PCR) Crossmatch 06/26/20 06/26/20 06/26/20 05:47 12:47 17:42 WBC RBC Hgb Hct MCHC RDW Plt Count Lymph % (Auto) [place] % (Auto) Lymph # (Auto) [place] # (Auto) Eos # (Auto) Seg Neutrophils % Seg Neuts % (Manual) Lymphocytes % (Manual) Monocytes % (Manual) Basophils % (Manual) Nucleated RBC % Seg Neutrophils # Seg Neutrophils # Man Lymphocytes # (Manual) Monocytes # (Manual) Eosinophils # (Manual) Basophils # (Manual) PT 17.4 H INR 1.44 H APTT D-Dimer Heparin Anti-Xa Level ABG pH POC ABG pCO2 POC ABG pO2 ABG pO2 ABG HCO3 ABG Hemoglobin ABG Oxyhemoglobin ABG Sodium ABG Potassium ABG Chloride ABG Glucose Carboxyhemoglobin Sodium Potassium Chloride Carbon Dioxide BUN Creatinine Glucose POC Glucose 124 H 127 H Lactic Acid Calcium Phosphorus Magnesium Ferritin Direct Bilirubin AST ALT Alkaline Phosphatase Lactate Dehydrogenase Total Creatine Kinase C-Reactive Protein Total Protein Albumin Triglycerides Arterial Blood Glucose Arterial Blood Ionized Calcium Urine Creatinine Urine Chloride Vancomycin Trough Coronavirus (PCR) Crossmatch 06/26/20 06/27/20 06/27/20 23:30 03:32 04:00 WBC RBC Hgb 8.7 L Hct 26.4 L MCHC RDW Plt Count Lymph % (Auto) [place] % (Auto) Lymph # (Auto) [place] # (Auto) Eos # (Auto) Seg Neutrophils % Seg Neuts % (Manual) Lymphocytes % (Manual) Monocytes % (Manual) Basophils % (Manual) Nucleated RBC % Seg Neutrophils # Seg Neutrophils # Man Lymphocytes # (Manual) Monocytes # (Manual) Eosinophils # (Manual) Basophils # (Manual) PT INR APTT D-Dimer Heparin Anti-Xa Level ABG pH 7.298 L POC ABG pCO2 POC ABG pO2 ABG pO2 ABG HCO3 ABG Hemoglobin 9.6 L ABG Oxyhemoglobin ABG Sodium 124.4 L ABG Potassium 6.6 H ABG Chloride ABG Glucose 136 H Carboxyhemoglobin Sodium Potassium Chloride Carbon Dioxide BUN Creatinine Glucose POC Glucose 123 H Lactic Acid Calcium Phosphorus Magnesium Ferritin Direct Bilirubin AST ALT Alkaline Phosphatase Lactate Dehydrogenase Total Creatine Kinase C-Reactive Protein Total Protein Albumin Triglycerides Arterial Blood Glucose 136 H Arterial Blood Ionized Calcium 4.1 L Urine Creatinine Urine Chloride Vancomycin Trough Coronavirus (PCR) Crossmatch 06/27/20 06/27/20 06/27/20 05:26 10:14 11:58 WBC RBC Hgb Hct MCHC RDW Plt Count Lymph % (Auto) [place] % (Auto) Lymph # (Auto) [place] # (Auto) Eos # (Auto) Seg Neutrophils % Seg Neuts % (Manual) Lymphocytes % (Manual) Monocytes % (Manual) Basophils % (Manual) Nucleated RBC % Seg Neutrophils # Seg Neutrophils # Man Lymphocytes # (Manual) Monocytes # (Manual) Eosinophils # (Manual) Basophils # (Manual) PT INR APTT D-Dimer Heparin Anti-Xa Level ABG pH POC ABG pCO2 POC ABG pO2 ABG pO2 ABG HCO3 ABG Hemoglobin ABG Oxyhemoglobin ABG Sodium ABG Potassium ABG Chloride ABG Glucose Carboxyhemoglobin Sodium 136 L Potassium 7.0 H* Chloride 97.8 L Carbon Dioxide BUN 172 H Creatinine 7.4 H Glucose 129 H POC Glucose 124 H 115 H Lactic Acid Calcium 7.6 L Phosphorus Magnesium Ferritin Direct Bilirubin AST ALT Alkaline Phosphatase Lactate Dehydrogenase Total Creatine Kinase C-Reactive Protein Total Protein Albumin Triglycerides Arterial Blood Glucose Arterial Blood Ionized Calcium Urine Creatinine Urine Chloride Vancomycin Trough Coronavirus (PCR) Crossmatch 06/27/20 06/27/20 06/27/20 17:32 18:30 23:24 WBC RBC Hgb Hct MCHC RDW Plt Count Lymph % (Auto) [place] % (Auto) Lymph # (Auto) [place] # (Auto) Eos # (Auto) Seg Neutrophils % Seg Neuts % (Manual) Lymphocytes % (Manual) Monocytes % (Manual) Basophils % (Manual) Nucleated RBC % Seg Neutrophils # Seg Neutrophils # Man Lymphocytes # (Manual) Monocytes # (Manual) Eosinophils # (Manual) Basophils # (Manual) PT INR APTT D-Dimer Heparin Anti-Xa Level ABG pH POC ABG pCO2 POC ABG pO2 ABG pO2 ABG HCO3 ABG Hemoglobin ABG Oxyhemoglobin ABG Sodium ABG Potassium ABG Chloride ABG Glucose Carboxyhemoglobin Sodium Potassium 7.3 H* Chloride Carbon Dioxide BUN Creatinine Glucose POC Glucose 122 H 116 H Lactic Acid Calcium Phosphorus Magnesium Ferritin Direct Bilirubin AST ALT Alkaline Phosphatase Lactate Dehydrogenase Total Creatine Kinase C-Reactive Protein Total Protein Albumin Triglycerides Arterial Blood Glucose Arterial Blood Ionized Calcium Urine Creatinine Urine Chloride Vancomycin Trough Coronavirus (PCR) Crossmatch 06/28/20 06/28/20 06/28/20 00:00 02:16 05:37 WBC RBC Hgb Hct MCHC RDW Plt Count Lymph % (Auto) [place] % (Auto) Lymph # (Auto) [place] # (Auto) Eos # (Auto) Seg Neutrophils % Seg Neuts % (Manual) Lymphocytes % (Manual) Monocytes % (Manual) Basophils % (Manual) Nucleated RBC % Seg Neutrophils # Seg Neutrophils # Man Lymphocytes # (Manual) Monocytes # (Manual) Eosinophils # (Manual) Basophils # (Manual) PT INR APTT D-Dimer Heparin Anti-Xa Level ABG pH POC ABG pCO2 POC ABG pO2 79.0 L ABG pO2 ABG HCO3 ABG Hemoglobin 11.7 L ABG Oxyhemoglobin ABG Sodium 128.1 L ABG Potassium 6.6 H ABG Chloride ABG Glucose 124 H Carboxyhemoglobin Sodium Potassium 7.3 H* Chloride Carbon Dioxide BUN Creatinine Glucose POC Glucose 115 H Lactic Acid Calcium Phosphorus Magnesium Ferritin Direct Bilirubin AST ALT Alkaline Phosphatase Lactate Dehydrogenase Total Creatine Kinase C-Reactive Protein Total Protein Albumin Triglycerides Arterial Blood Glucose 124 H Arterial Blood Ionized Calcium 4.2 L Urine Creatinine Urine Chloride Vancomycin Trough Coronavirus (PCR) Crossmatch 06/28/20 06/28/20 06/28/20 10:03 10:03 11:51 WBC 33.6 H RBC 3.03 L Hgb 8.9 L Hct 27.0 L MCHC RDW Plt Count Lymph % (Auto) [place] % (Auto) Lymph # (Auto) [place] # (Auto) Eos # (Auto) Seg Neutrophils % Seg Neuts % (Manual) Lymphocytes % (Manual) Monocytes % (Manual) Basophils % (Manual) Nucleated RBC % Seg Neutrophils # Seg Neutrophils # Man Lymphocytes # (Manual) Monocytes # (Manual) Eosinophils # (Manual) Basophils # (Manual) PT INR APTT D-Dimer Heparin Anti-Xa Level ABG pH POC ABG pCO2 POC ABG pO2 ABG pO2 ABG HCO3 ABG Hemoglobin ABG Oxyhemoglobin ABG Sodium ABG Potassium ABG Chloride ABG Glucose Carboxyhemoglobin Sodium 136 L Potassium 6.5 H* Chloride Carbon Dioxide 20 L BUN 129 H Creatinine 5.8 H Glucose 113 H POC Glucose 107 H Lactic Acid Calcium 7.6 L Phosphorus Magnesium Ferritin Direct Bilirubin AST ALT Alkaline Phosphatase Lactate Dehydrogenase Total Creatine Kinase C-Reactive Protein Total Protein Albumin Triglycerides Arterial Blood Glucose Arterial Blood Ionized Calcium Urine Creatinine Urine Chloride Vancomycin Trough Coronavirus (PCR) Crossmatch 06/28/20 06/28/20 06/29/20 17:45 Unknown 03:15 WBC RBC Hgb Hct MCHC RDW Plt Count Lymph % (Auto) [place] % (Auto) Lymph # (Auto) [place] # (Auto) Eos # (Auto) Seg Neutrophils % Seg Neuts % (Manual) Lymphocytes % (Manual) Monocytes % (Manual) Basophils % (Manual) Nucleated RBC % Seg Neutrophils # Seg Neutrophils # Man Lymphocytes # (Manual) Monocytes # (Manual) Eosinophils # (Manual) Basophils # (Manual) PT INR APTT D-Dimer Heparin Anti-Xa Level ABG pH POC ABG pCO2 POC ABG pO2 ABG pO2 ABG HCO3 ABG Hemoglobin 7.8 L ABG Oxyhemoglobin ABG Sodium 127.4 L ABG Potassium 5.5 H ABG Chloride 97.0 L ABG Glucose 96 H Carboxyhemoglobin Sodium Potassium 5.4 H Chloride Carbon Dioxide BUN Creatinine Glucose POC Glucose 117 H Lactic Acid Calcium Phosphorus Magnesium Ferritin Direct Bilirubin AST ALT Alkaline Phosphatase Lactate Dehydrogenase Total Creatine Kinase C-Reactive Protein Total Protein Albumin Triglycerides Arterial Blood Glucose 96 H Arterial Blood Ionized Calcium 4.0 L Urine Creatinine Urine Chloride Vancomycin Trough Coronavirus (PCR) Crossmatch 06/29/20 06/29/20 06/29/20 03:45 Unknown Unknown WBC RBC Hgb Hct MCHC RDW Plt Count Lymph % (Auto) [place] % (Auto) Lymph # (Auto) [place] # (Auto) Eos # (Auto) Seg Neutrophils % Seg Neuts % (Manual) Lymphocytes % (Manual) Monocytes % (Manual) Basophils % (Manual) Nucleated RBC % Seg Neutrophils # Seg Neutrophils # Man Lymphocytes # (Manual) Monocytes # (Manual) Eosinophils # (Manual) Basophils # (Manual) PT INR APTT D-Dimer Heparin Anti-Xa Level ABG pH POC ABG pCO2 POC ABG pO2 ABG pO2 ABG HCO3 ABG Hemoglobin ABG Oxyhemoglobin ABG Sodium ABG Potassium ABG Chloride ABG Glucose Carboxyhemoglobin Sodium 135 L Potassium 6.0 H 6.1 H* Chloride 94.8 L Carbon Dioxide BUN 109 H 114 H Creatinine 5.5 H Glucose POC Glucose Lactic Acid Calcium 7.4 L Phosphorus Magnesium Ferritin Direct Bilirubin AST 47 H ALT Alkaline Phosphatase Lactate Dehydrogenase Total Creatine Kinase C-Reactive Protein Total Protein 4.9 L Albumin 2.2 L Triglycerides Arterial Blood Glucose Arterial Blood Ionized Calcium Urine Creatinine Urine Chloride Vancomycin Trough Coronavirus (PCR) Crossmatch 06/29/20 06/29/20 06/30/20 Unknown Unknown 03:32 WBC 20.7 H RBC 2.57 L Hgb 7.6 L Hct 23.0 L MCHC RDW Plt Count Lymph % (Auto) [place] % (Auto) Lymph # (Auto) [place] # (Auto) Eos # (Auto) Seg Neutrophils % Seg Neuts % (Manual) Lymphocytes % (Manual) Monocytes % (Manual) Basophils % (Manual) Nucleated RBC % Seg Neutrophils # Seg Neutrophils # Man Lymphocytes # (Manual) Monocytes # (Manual) Eosinophils # (Manual) Basophils # (Manual) PT INR APTT D-Dimer Heparin Anti-Xa Level ABG pH POC ABG pCO2 POC ABG pO2 ABG pO2 ABG HCO3 ABG Hemoglobin 11.4 L ABG Oxyhemoglobin ABG Sodium 130.1 L ABG Potassium 5.0 H ABG Chloride ABG Glucose Carboxyhemoglobin Sodium Potassium Chloride Carbon Dioxide BUN Creatinine Glucose POC Glucose Lactic Acid Calcium Phosphorus Magnesium Ferritin Direct Bilirubin AST ALT Alkaline Phosphatase Lactate Dehydrogenase Total Creatine Kinase 618 H C-Reactive Protein Total Protein Albumin Triglycerides Arterial Blood Glucose Arterial Blood Ionized Calcium 3.9 L Urine Creatinine Urine Chloride Vancomycin Trough Coronavirus (PCR) Crossmatch 06/30/20 06/30/20 06/30/20 03:50 03:50 11:39 WBC 13.1 H RBC Hgb Hct MCHC RDW Plt Count Lymph % (Auto) [place] % (Auto) Lymph # (Auto) [place] # (Auto) Eos # (Auto) Seg Neutrophils % Seg Neuts % (Manual) 95.0 H Lymphocytes % (Manual) 3.0 L Monocytes % (Manual) Basophils % (Manual) Nucleated RBC % Seg Neutrophils # Seg Neutrophils # Man 12.4 H Lymphocytes # (Manual) 0.4 L Monocytes # (Manual) Eosinophils # (Manual) Basophils # (Manual) PT INR APTT D-Dimer Heparin Anti-Xa Level ABG pH POC ABG pCO2 POC ABG pO2 ABG pO2 ABG HCO3 ABG Hemoglobin ABG Oxyhemoglobin ABG Sodium ABG Potassium ABG Chloride ABG Glucose Carboxyhemoglobin Sodium 135 L Potassium 5.4 H D Chloride 93.6 L Carbon Dioxide BUN 85 H Creatinine 4.6 H Glucose POC Glucose 111 H Lactic Acid Calcium 7.1 L Phosphorus 9.40 H Magnesium Ferritin Direct Bilirubin AST ALT Alkaline Phosphatase Lactate Dehydrogenase Total Creatine Kinase C-Reactive Protein Total Protein Albumin Triglycerides Arterial Blood Glucose Arterial Blood Ionized Calcium Urine Creatinine Urine Chloride Vancomycin Trough Coronavirus (PCR) Crossmatch 06/30/20 06/30/20 07/01/20 13:12 Unknown 03:19 WBC RBC Hgb 7.8 L D Hct 23.2 L D MCHC RDW Plt Count Lymph % (Auto) [place] % (Auto) Lymph # (Auto) [place] # (Auto) Eos # (Auto) Seg Neutrophils % Seg Neuts % (Manual) Lymphocytes % (Manual) Monocytes % (Manual) Basophils % (Manual) Nucleated RBC % Seg Neutrophils # Seg Neutrophils # Man Lymphocytes # (Manual) Monocytes # (Manual) Eosinophils # (Manual) Basophils # (Manual) PT INR APTT D-Dimer Heparin Anti-Xa Level ABG pH 7.461 H POC ABG pCO2 POC ABG pO2 77.2 L ABG pO2 ABG HCO3 ABG Hemoglobin 6.9 L ABG Oxyhemoglobin ABG Sodium 128.5 L ABG Potassium ABG Chloride 97.0 L ABG Glucose Carboxyhemoglobin Sodium Potassium Chloride Carbon Dioxide BUN Creatinine Glucose POC Glucose Lactic Acid Calcium Phosphorus Magnesium Ferritin Direct Bilirubin AST ALT Alkaline Phosphatase Lactate Dehydrogenase Total Creatine Kinase C-Reactive Protein Total Protein Albumin Triglycerides Arterial Blood Glucose Arterial Blood Ionized Calcium 3.7 L Urine Creatinine Urine Chloride Vancomycin Trough Coronavirus (PCR) Positive A Crossmatch 07/01/20 07/01/20 07/01/20 06:00 06:00 11:04 WBC 16.7 H RBC 2.16 L Hgb 6.4 L Hct 19.2 L* MCHC RDW Plt Count Lymph % (Auto) [place] % (Auto) Lymph # (Auto) [place] # (Auto) Eos # (Auto) Seg Neutrophils % Seg Neuts % (Manual) Lymphocytes % (Manual) Monocytes % (Manual) Basophils % (Manual) Nucleated RBC % Seg Neutrophils # Seg Neutrophils # Man Lymphocytes # (Manual) Monocytes # (Manual) Eosinophils # (Manual) Basophils # (Manual) PT INR APTT D-Dimer Heparin Anti-Xa Level ABG pH POC ABG pCO2 POC ABG pO2 ABG pO2 ABG HCO3 ABG Hemoglobin ABG Oxyhemoglobin ABG Sodium ABG Potassium ABG Chloride ABG Glucose Carboxyhemoglobin Sodium 136 L Potassium Chloride 95.8 L Carbon Dioxide BUN 72 H Creatinine 4.3 H Glucose POC Glucose Lactic Acid Calcium 6.7 L Phosphorus Magnesium Ferritin Direct Bilirubin AST ALT Alkaline Phosphatase Lactate Dehydrogenase Total Creatine Kinase C-Reactive Protein Total Protein Albumin Triglycerides 250 H Arterial Blood Glucose Arterial Blood Ionized Calcium Urine Creatinine Urine Chloride Vancomycin Trough Coronavirus (PCR) Crossmatch See Detail 07/02/20 07/02/20 07/02/20 04:44 06:00 11:33 WBC 14.6 H RBC 2.47 L Hgb 7.4 L Hct 21.8 L MCHC RDW Plt Count Lymph % (Auto) [place] % (Auto) Lymph # (Auto) [place] # (Auto) Eos # (Auto) Seg Neutrophils % Seg Neuts % (Manual) Lymphocytes % (Manual) Monocytes % (Manual) Basophils % (Manual) Nucleated RBC % Seg Neutrophils # Seg Neutrophils # Man Lymphocytes # (Manual) Monocytes # (Manual) Eosinophils # (Manual) Basophils # (Manual) PT INR APTT D-Dimer Heparin Anti-Xa Level ABG pH 7.457 H POC ABG pCO2 POC ABG pO2 79.4 L ABG pO2 ABG HCO3 ABG Hemoglobin 8.5 L ABG Oxyhemoglobin ABG Sodium 128.4 L ABG Potassium ABG Chloride 97.0 L ABG Glucose 100 H Carboxyhemoglobin Sodium 133 L Potassium 5.2 H Chloride 93.3 L Carbon Dioxide BUN 66 H Creatinine 4.1 H Glucose 102 H POC Glucose Lactic Acid Calcium 7.2 L Phosphorus Magnesium Ferritin Direct Bilirubin AST ALT Alkaline Phosphatase Lactate Dehydrogenase Total Creatine Kinase C-Reactive Protein Total Protein Albumin Triglycerides Arterial Blood Glucose 100 H Arterial Blood Ionized Calcium 3.9 L Urine Creatinine Urine Chloride Vancomycin Trough Coronavirus (PCR) Crossmatch 07/02/20 07/03/20 07/03/20 11:33 03:54 09:15 WBC 16.6 H RBC 2.44 L Hgb 7.3 L Hct 21.4 L MCHC RDW Plt Count Lymph % (Auto) [place] % (Auto) Lymph # (Auto) [place] # (Auto) Eos # (Auto) Seg Neutrophils % Seg Neuts % (Manual) Lymphocytes % (Manual) Monocytes % (Manual) Basophils % (Manual) Nucleated RBC % Seg Neutrophils # Seg Neutrophils # Man Lymphocytes # (Manual) Monocytes # (Manual) Eosinophils # (Manual) Basophils # (Manual) PT INR APTT D-Dimer Heparin Anti-Xa Level ABG pH POC ABG pCO2 POC ABG pO2 66.1 L ABG pO2 ABG HCO3 ABG Hemoglobin 8.0 L ABG Oxyhemoglobin ABG Sodium 124.6 L ABG Potassium 5.5 H ABG Chloride 96.0 L ABG Glucose 111 H Carboxyhemoglobin Sodium Potassium Chloride Carbon Dioxide BUN Creatinine Glucose POC Glucose Lactic Acid Calcium Phosphorus Magnesium Ferritin Direct Bilirubin 0.7 H AST 94 H ALT 60 H Alkaline Phosphatase Lactate Dehydrogenase Total Creatine Kinase C-Reactive Protein Total Protein 4.4 L Albumin 1.9 L Triglycerides Arterial Blood Glucose 111 H Arterial Blood Ionized Calcium 3.8 L Urine Creatinine Urine Chloride Vancomycin Trough Coronavirus (PCR) Crossmatch 07/03/20 07/03/20 07/03/20 09:15 10:10 14:50 WBC RBC Hgb Hct MCHC RDW Plt Count Lymph % (Auto) [place] % (Auto) Lymph # (Auto) [place] # (Auto) Eos # (Auto) Seg Neutrophils % Seg Neuts % (Manual) Lymphocytes % (Manual) Monocytes % (Manual) Basophils % (Manual) Nucleated RBC % Seg Neutrophils # Seg Neutrophils # Man Lymphocytes # (Manual) Monocytes # (Manual) Eosinophils # (Manual) Basophils # (Manual) PT INR APTT D-Dimer 6608.00 H Heparin Anti-Xa Level ABG pH POC ABG pCO2 POC ABG pO2 ABG pO2 ABG HCO3 ABG Hemoglobin ABG Oxyhemoglobin ABG Sodium ABG Potassium ABG Chloride ABG Glucose Carboxyhemoglobin Sodium 133 L Potassium 6.2 H* Chloride 93.1 L Carbon Dioxide BUN 89 H Creatinine 5.1 H Glucose POC Glucose Lactic Acid Calcium 7.0 L Phosphorus Magnesium Ferritin Direct Bilirubin AST ALT Alkaline Phosphatase Lactate Dehydrogenase Total Creatine Kinase C-Reactive Protein Total Protein Albumin Triglycerides Arterial Blood Glucose Arterial Blood Ionized Calcium Urine Creatinine Urine Chloride Vancomycin Trough Coronavirus (PCR) Positive A Crossmatch 07/03/20 07/03/20 07/03/20 14:50 14:50 14:50 WBC RBC Hgb Hct MCHC RDW Plt Count Lymph % (Auto) [place] % (Auto) Lymph # (Auto) [place] # (Auto) Eos # (Auto) Seg Neutrophils % Seg Neuts % (Manual) Lymphocytes % (Manual) Monocytes % (Manual) Basophils % (Manual) Nucleated RBC % Seg Neutrophils # Seg Neutrophils # Man Lymphocytes # (Manual) Monocytes # (Manual) Eosinophils # (Manual) Basophils # (Manual) PT INR APTT D-Dimer Heparin Anti-Xa Level ABG pH POC ABG pCO2 POC ABG pO2 ABG pO2 ABG HCO3 ABG Hemoglobin ABG Oxyhemoglobin ABG Sodium ABG Potassium ABG Chloride ABG Glucose Carboxyhemoglobin Sodium Potassium Chloride Carbon Dioxide BUN Creatinine Glucose POC Glucose Lactic Acid < 0.20 L Calcium Phosphorus Magnesium Ferritin 1171.0 H Direct Bilirubin AST ALT Alkaline Phosphatase Lactate Dehydrogenase 525 H Total Creatine Kinase C-Reactive Protein 31.50 H Total Protein Albumin Triglycerides Arterial Blood Glucose Arterial Blood Ionized Calcium Urine Creatinine Urine Chloride Vancomycin Trough Coronavirus (PCR) Crossmatch 07/03/20 07/04/20 07/04/20 16:47 05:20 05:20 WBC 11.8 H RBC 2.32 L Hgb 6.7 L Hct 20.8 L MCHC RDW Plt Count Lymph % (Auto) 2.6 L [place] % (Auto) Lymph # (Auto) 0.3 L [place] # (Auto) Eos # (Auto) Seg Neutrophils % Seg Neuts % (Manual) Lymphocytes % (Manual) Monocytes % (Manual) Basophils % (Manual) Nucleated RBC % Seg Neutrophils # 11.0 H Seg Neutrophils # Man Lymphocytes # (Manual) Monocytes # (Manual) Eosinophils # (Manual) Basophils # (Manual) PT INR APTT D-Dimer Heparin Anti-Xa Level ABG pH POC ABG pCO2 POC ABG pO2 ABG pO2 ABG HCO3 ABG Hemoglobin ABG Oxyhemoglobin ABG Sodium ABG Potassium ABG Chloride ABG Glucose Carboxyhemoglobin Sodium Potassium 6.0 H Chloride 97.8 L Carbon Dioxide BUN 75 H Creatinine 4.5 H Glucose 121 H POC Glucose 107 H Lactic Acid Calcium 7.9 L Phosphorus Magnesium Ferritin Direct Bilirubin AST ALT Alkaline Phosphatase Lactate Dehydrogenase Total Creatine Kinase C-Reactive Protein Total Protein Albumin Triglycerides Arterial Blood Glucose Arterial Blood Ionized Calcium Urine Creatinine Urine Chloride Vancomycin Trough Coronavirus (PCR) Crossmatch 07/04/20 07/04/20 07/04/20 05:20 05:50 09:25 WBC RBC Hgb Hct MCHC RDW Plt Count Lymph % (Auto) [place] % (Auto) Lymph # (Auto) [place] # (Auto) Eos # (Auto) Seg Neutrophils % Seg Neuts % (Manual) Lymphocytes % (Manual) Monocytes % (Manual) Basophils % (Manual) Nucleated RBC % Seg Neutrophils # Seg Neutrophils # Man Lymphocytes # (Manual) Monocytes # (Manual) Eosinophils # (Manual) Basophils # (Manual) PT INR APTT D-Dimer Heparin Anti-Xa Level ABG pH 7.324 L POC ABG pCO2 POC ABG pO2 ABG pO2 98.9 H ABG HCO3 26.8 H ABG Hemoglobin < 5.1 L ABG Oxyhemoglobin ABG Sodium ABG Potassium ABG Chloride ABG Glucose Carboxyhemoglobin Sodium Potassium Chloride Carbon Dioxide BUN Creatinine Glucose POC Glucose 114 H Lactic Acid Calcium Phosphorus Magnesium Ferritin Direct Bilirubin AST ALT Alkaline Phosphatase Lactate Dehydrogenase Total Creatine Kinase C-Reactive Protein Total Protein Albumin Triglycerides Arterial Blood Glucose Arterial Blood Ionized Calcium Urine Creatinine Urine Chloride Vancomycin Trough Coronavirus (PCR) Crossmatch See Detail 07/04/20 07/04/20 07/04/20 12:33 17:41 23:04 WBC RBC Hgb Hct MCHC RDW Plt Count Lymph % (Auto) [place] % (Auto) Lymph # (Auto) [place] # (Auto) Eos # (Auto) Seg Neutrophils % Seg Neuts % (Manual) Lymphocytes % (Manual) Monocytes % (Manual) Basophils % (Manual) Nucleated RBC % Seg Neutrophils # Seg Neutrophils # Man Lymphocytes # (Manual) Monocytes # (Manual) Eosinophils # (Manual) Basophils # (Manual) PT INR APTT D-Dimer Heparin Anti-Xa Level ABG pH POC ABG pCO2 POC ABG pO2 ABG pO2 ABG HCO3 ABG Hemoglobin ABG Oxyhemoglobin ABG Sodium ABG Potassium ABG Chloride ABG Glucose Carboxyhemoglobin Sodium Potassium Chloride Carbon Dioxide BUN Creatinine Glucose POC Glucose 119 H 109 H 116 H Lactic Acid Calcium Phosphorus Magnesium Ferritin Direct Bilirubin AST ALT Alkaline Phosphatase Lactate Dehydrogenase Total Creatine Kinase C-Reactive Protein Total Protein Albumin Triglycerides Arterial Blood Glucose Arterial Blood Ionized Calcium Urine Creatinine Urine Chloride Vancomycin Trough Coronavirus (PCR) Crossmatch 07/05/20 07/05/20 07/05/20 04:30 08:21 08:21 WBC RBC 2.77 L Hgb 7.9 L Hct 23.9 L MCHC RDW 16.7 H Plt Count Lymph % (Auto) 7.5 L [place] % (Auto) Lymph # (Auto) 0.7 L [place] # (Auto) Eos # (Auto) Seg Neutrophils % 85.8 H Seg Neuts % (Manual) Lymphocytes % (Manual) Monocytes % (Manual) Basophils % (Manual) Nucleated RBC % Seg Neutrophils # 7.8 H Seg Neutrophils # Man Lymphocytes # (Manual) Monocytes # (Manual) Eosinophils # (Manual) Basophils # (Manual) PT INR APTT D-Dimer Heparin Anti-Xa Level ABG pH 7.295 L POC ABG pCO2 POC ABG pO2 ABG pO2 151.9 H ABG HCO3 26.8 H ABG Hemoglobin 7.3 L ABG Oxyhemoglobin ABG Sodium ABG Potassium ABG Chloride ABG Glucose Carboxyhemoglobin Sodium Potassium Chloride Carbon Dioxide BUN Creatinine Glucose POC Glucose Lactic Acid Calcium Phosphorus Magnesium Ferritin Direct Bilirubin AST ALT Alkaline Phosphatase Lactate Dehydrogenase Total Creatine Kinase C-Reactive Protein Total Protein Albumin Triglycerides 258 H Arterial Blood Glucose Arterial Blood Ionized Calcium Urine Creatinine Urine Chloride Vancomycin Trough Coronavirus (PCR) Crossmatch 07/05/20 07/05/20 07/06/20 08:21 12:12 04:29 WBC RBC Hgb Hct MCHC RDW Plt Count Lymph % (Auto) [place] % (Auto) Lymph # (Auto) [place] # (Auto) Eos # (Auto) Seg Neutrophils % Seg Neuts % (Manual) Lymphocytes % (Manual) Monocytes % (Manual) Basophils % (Manual) Nucleated RBC % Seg Neutrophils # Seg Neutrophils # Man Lymphocytes # (Manual) Monocytes # (Manual) Eosinophils # (Manual) Basophils # (Manual) PT INR APTT D-Dimer Heparin Anti-Xa Level ABG pH 7.291 L POC ABG pCO2 51.3 H POC ABG pO2 ABG pO2 ABG HCO3 ABG Hemoglobin 8.5 L ABG Oxyhemoglobin ABG Sodium 129.6 L ABG Potassium 4.8 H ABG Chloride 96.0 L ABG Glucose Carboxyhemoglobin Sodium 133 L Potassium 5.6 H Chloride 94.4 L Carbon Dioxide BUN 80 H Creatinine 4.2 H Glucose 114 H POC Glucose 106 H Lactic Acid Calcium 7.6 L Phosphorus Magnesium Ferritin Direct Bilirubin 0.5 H AST 75 H ALT 86 H Alkaline Phosphatase Lactate Dehydrogenase Total Creatine Kinase C-Reactive Protein Total Protein 5.6 L D Albumin 1.9 L Triglycerides Arterial Blood Glucose Arterial Blood Ionized Calcium 4.2 L Urine Creatinine Urine Chloride Vancomycin Trough Coronavirus (PCR) Crossmatch 07/06/20 07/06/20 07/06/20 11:35 11:35 12:16 WBC RBC 2.54 L Hgb 7.5 L Hct 21.5 L MCHC 35 H RDW 15.7 H Plt Count Lymph % (Auto) [place] % (Auto) Lymph # (Auto) [place] # (Auto) Eos # (Auto) Seg Neutrophils % Seg Neuts % (Manual) Lymphocytes % (Manual) Monocytes % (Manual) Basophils % (Manual) Nucleated RBC % Seg Neutrophils # Seg Neutrophils # Man Lymphocytes # (Manual) Monocytes # (Manual) Eosinophils # (Manual) Basophils # (Manual) PT INR APTT D-Dimer Heparin Anti-Xa Level ABG pH POC ABG pCO2 POC ABG pO2 ABG pO2 ABG HCO3 ABG Hemoglobin ABG Oxyhemoglobin ABG Sodium ABG Potassium ABG Chloride ABG Glucose Carboxyhemoglobin Sodium 130 L Potassium Chloride 92.2 L Carbon Dioxide 19 L D BUN 107 H Creatinine 5.1 H Glucose 106 H POC Glucose 106 H Lactic Acid Calcium 7.5 L Phosphorus Magnesium Ferritin Direct Bilirubin AST ALT Alkaline Phosphatase Lactate Dehydrogenase Total Creatine Kinase C-Reactive Protein Total Protein Albumin Triglycerides Arterial Blood Glucose Arterial Blood Ionized Calcium Urine Creatinine Urine Chloride Vancomycin Trough Coronavirus (PCR) Crossmatch 07/06/20 07/06/20 07/06/20 17:01 21:56 23:41 WBC RBC Hgb Hct MCHC RDW Plt Count Lymph % (Auto) [place] % (Auto) Lymph # (Auto) [place] # (Auto) Eos # (Auto) Seg Neutrophils % Seg Neuts % (Manual) Lymphocytes % (Manual) Monocytes % (Manual) Basophils % (Manual) Nucleated RBC % Seg Neutrophils # Seg Neutrophils # Man Lymphocytes # (Manual) Monocytes # (Manual) Eosinophils # (Manual) Basophils # (Manual) PT INR APTT D-Dimer Heparin Anti-Xa Level ABG pH POC ABG pCO2 POC ABG pO2 ABG pO2 ABG HCO3 ABG Hemoglobin ABG Oxyhemoglobin ABG Sodium ABG Potassium ABG Chloride ABG Glucose Carboxyhemoglobin Sodium 135 L Potassium 5.1 H Chloride Carbon Dioxide BUN 73 H Creatinine 4.0 H Glucose 112 H POC Glucose 109 H 111 H Lactic Acid Calcium 7.8 L Phosphorus Magnesium Ferritin Direct Bilirubin AST ALT Alkaline Phosphatase Lactate Dehydrogenase Total Creatine Kinase C-Reactive Protein Total Protein Albumin Triglycerides Arterial Blood Glucose Arterial Blood Ionized Calcium Urine Creatinine Urine Chloride Vancomycin Trough Coronavirus (PCR) Crossmatch 07/07/20 07/07/20 07/07/20 04:18 05:04 05:29 WBC RBC 2.46 L Hgb 7.6 L Hct 21.5 L MCHC 35 H RDW 16.5 H Plt Count Lymph % (Auto) [place] % (Auto) Lymph # (Auto) [place] # (Auto) Eos # (Auto) Seg Neutrophils % Seg Neuts % (Manual) 82.0 H Lymphocytes % (Manual) Monocytes % (Manual) Basophils % (Manual) Nucleated RBC % 1.0 H Seg Neutrophils # Seg Neutrophils # Man Lymphocytes # (Manual) 1.1 L Monocytes # (Manual) Eosinophils # (Manual) Basophils # (Manual) PT INR APTT D-Dimer Heparin Anti-Xa Level ABG pH POC ABG pCO2 POC ABG pO2 79.6 L ABG pO2 ABG HCO3 ABG Hemoglobin 8.2 L ABG Oxyhemoglobin ABG Sodium 133.3 L ABG Potassium 4.7 H ABG Chloride ABG Glucose 135 H Carboxyhemoglobin Sodium Potassium Chloride Carbon Dioxide BUN Creatinine Glucose POC Glucose 112 H Lactic Acid Calcium Phosphorus Magnesium Ferritin Direct Bilirubin AST ALT Alkaline Phosphatase Lactate Dehydrogenase Total Creatine Kinase C-Reactive Protein Total Protein Albumin Triglycerides Arterial Blood Glucose 135 H Arterial Blood Ionized Calcium 4.5 L Urine Creatinine Urine Chloride Vancomycin Trough Coronavirus (PCR) Crossmatch 07/07/20 07/07/20 07/07/20 10:17 12:18 17:43 WBC RBC Hgb Hct MCHC RDW Plt Count Lymph % (Auto) [place] % (Auto) Lymph # (Auto) [place] # (Auto) Eos # (Auto) Seg Neutrophils % Seg Neuts % (Manual) Lymphocytes % (Manual) Monocytes % (Manual) Basophils % (Manual) Nucleated RBC % Seg Neutrophils # Seg Neutrophils # Man Lymphocytes # (Manual) Monocytes # (Manual) Eosinophils # (Manual) Basophils # (Manual) PT INR APTT D-Dimer Heparin Anti-Xa Level ABG pH POC ABG pCO2 POC ABG pO2 ABG pO2 ABG HCO3 ABG Hemoglobin ABG Oxyhemoglobin ABG Sodium ABG Potassium ABG Chloride ABG Glucose Carboxyhemoglobin Sodium 136 L Potassium Chloride 96.8 L Carbon Dioxide BUN 82 H Creatinine 4.3 H Glucose 129 H POC Glucose 108 H 116 H Lactic Acid Calcium 7.8 L Phosphorus Magnesium Ferritin Direct Bilirubin AST ALT Alkaline Phosphatase Lactate Dehydrogenase Total Creatine Kinase C-Reactive Protein Total Protein Albumin Triglycerides Arterial Blood Glucose Arterial Blood Ionized Calcium Urine Creatinine Urine Chloride Vancomycin Trough Coronavirus (PCR) Crossmatch 07/07/20 07/08/20 07/08/20 23:31 04:00 04:00 WBC RBC 2.52 L Hgb 7.3 L Hct 22.2 L MCHC RDW 16.6 H Plt Count Lymph % (Auto) 11.5 L [place] % (Auto) Lymph # (Auto) [place] # (Auto) Eos # (Auto) Seg Neutrophils % 78.2 H Seg Neuts % (Manual) Lymphocytes % (Manual) Monocytes % (Manual) Basophils % (Manual) Nucleated RBC % Seg Neutrophils # 8.0 H Seg Neutrophils # Man Lymphocytes # (Manual) Monocytes # (Manual) Eosinophils # (Manual) Basophils # (Manual) PT INR APTT D-Dimer Heparin Anti-Xa Level ABG pH POC ABG pCO2 POC ABG pO2 ABG pO2 ABG HCO3 ABG Hemoglobin ABG Oxyhemoglobin ABG Sodium ABG Potassium ABG Chloride ABG Glucose Carboxyhemoglobin Sodium 132 L Potassium 5.4 H Chloride 92.5 L Carbon Dioxide BUN 98 H Creatinine 4.9 H Glucose 105 H POC Glucose 117 H Lactic Acid Calcium 7.9 L Phosphorus Magnesium Ferritin Direct Bilirubin AST ALT Alkaline Phosphatase Lactate Dehydrogenase Total Creatine Kinase C-Reactive Protein Total Protein Albumin Triglycerides Arterial Blood Glucose Arterial Blood Ionized Calcium Urine Creatinine Urine Chloride Vancomycin Trough Coronavirus (PCR) Crossmatch 07/08/20 07/08/20 07/08/20 04:09 11:34 17:05 WBC RBC Hgb Hct MCHC RDW Plt Count Lymph % (Auto) [place] % (Auto) Lymph # (Auto) [place] # (Auto) Eos # (Auto) Seg Neutrophils % Seg Neuts % (Manual) Lymphocytes % (Manual) Monocytes % (Manual) Basophils % (Manual) Nucleated RBC % Seg Neutrophils # Seg Neutrophils # Man Lymphocytes # (Manual) Monocytes # (Manual) Eosinophils # (Manual) Basophils # (Manual) PT INR APTT D-Dimer Heparin Anti-Xa Level ABG pH 7.220 L POC ABG pCO2 60.5 H POC ABG pO2 ABG pO2 ABG HCO3 ABG Hemoglobin 8.2 L ABG Oxyhemoglobin ABG Sodium 131.3 L ABG Potassium 5.2 H ABG Chloride ABG Glucose 103 H Carboxyhemoglobin Sodium Potassium Chloride Carbon Dioxide BUN Creatinine Glucose POC Glucose 140 H 125 H Lactic Acid Calcium Phosphorus Magnesium Ferritin Direct Bilirubin AST ALT Alkaline Phosphatase Lactate Dehydrogenase Total Creatine Kinase C-Reactive Protein Total Protein Albumin Triglycerides Arterial Blood Glucose 103 H Arterial Blood Ionized Calcium 4.3 L Urine Creatinine Urine Chloride Vancomycin Trough Coronavirus (PCR) Crossmatch 07/08/20 07/08/20 07/09/20 20:21 23:43 05:10 WBC RBC Hgb Hct MCHC RDW Plt Count Lymph % (Auto) [place] % (Auto) Lymph # (Auto) [place] # (Auto) Eos # (Auto) Seg Neutrophils % Seg Neuts % (Manual) Lymphocytes % (Manual) Monocytes % (Manual) Basophils % (Manual) Nucleated RBC % Seg Neutrophils # Seg Neutrophils # Man Lymphocytes # (Manual) Monocytes # (Manual) Eosinophils # (Manual) Basophils # (Manual) PT INR APTT D-Dimer Heparin Anti-Xa Level ABG pH 7.20 L POC ABG pCO2 69.8 H POC ABG pO2 138.9 H 76.1 L ABG pO2 ABG HCO3 ABG Hemoglobin 11.9 L 8.4 L ABG Oxyhemoglobin ABG Sodium 133.1 L 131.2 L ABG Potassium 5.0 H 4.7 H ABG Chloride ABG Glucose 120 H 102 H Carboxyhemoglobin Sodium Potassium Chloride Carbon Dioxide BUN Creatinine Glucose POC Glucose 118 H Lactic Acid Calcium Phosphorus Magnesium Ferritin Direct Bilirubin AST ALT Alkaline Phosphatase Lactate Dehydrogenase Total Creatine Kinase C-Reactive Protein Total Protein Albumin Triglycerides Arterial Blood Glucose 120 H 102 H Arterial Blood Ionized Calcium 4.4 L 4.3 L Urine Creatinine Urine Chloride Vancomycin Trough Coronavirus (PCR) Crossmatch 07/09/20 07/09/20 07/09/20 11:51 17:04 21:00 WBC RBC Hgb Hct MCHC RDW Plt Count Lymph % (Auto) [place] % (Auto) Lymph # (Auto) [place] # (Auto) Eos # (Auto) Seg Neutrophils % Seg Neuts % (Manual) Lymphocytes % (Manual) Monocytes % (Manual) Basophils % (Manual) Nucleated RBC % Seg Neutrophils # Seg Neutrophils # Man Lymphocytes # (Manual) Monocytes # (Manual) Eosinophils # (Manual) Basophils # (Manual) PT INR APTT D-Dimer Heparin Anti-Xa Level ABG pH POC ABG pCO2 POC ABG pO2 114.2 H ABG pO2 ABG HCO3 ABG Hemoglobin 7.8 L ABG Oxyhemoglobin ABG Sodium 132.3 L ABG Potassium 4.6 H ABG Chloride ABG Glucose Carboxyhemoglobin Sodium Potassium Chloride Carbon Dioxide BUN Creatinine Glucose POC Glucose 113 H 111 H Lactic Acid Calcium Phosphorus Magnesium Ferritin Direct Bilirubin AST ALT Alkaline Phosphatase Lactate Dehydrogenase Total Creatine Kinase C-Reactive Protein Total Protein Albumin Triglycerides Arterial Blood Glucose Arterial Blood Ionized Calcium 4.4 L Urine Creatinine Urine Chloride Vancomycin Trough Coronavirus (PCR) Crossmatch 07/10/20 07/10/2021 03:49 03:55 03:55 WBC 18.1 H RBC 2.37 L Hgb 6.8 L Hct 20.7 L MCHC RDW 16.9 H Plt Count Lymph % (Auto) [place] % (Auto) Lymph # (Auto) [place] # (Auto) Eos # (Auto) Seg Neutrophils % Seg Neuts % (Manual) 79.0 H Lymphocytes % (Manual) 10.0 L Monocytes % (Manual) Basophils % (Manual) Nucleated RBC % 1.0 H Seg Neutrophils # Seg Neutrophils # Man 14.3 H Lymphocytes # (Manual) Monocytes # (Manual) Eosinophils # (Manual) 0.7 H Basophils # (Manual) PT INR APTT D-Dimer Heparin Anti-Xa Level ABG pH POC ABG pCO2 POC ABG pO2 ABG pO2 ABG HCO3 ABG Hemoglobin 7.7 L ABG Oxyhemoglobin ABG Sodium 130.3 L ABG Potassium 4.6 H ABG Chloride ABG Glucose Carboxyhemoglobin Sodium 136 L Potassium Chloride 96.0 L Carbon Dioxide BUN 76 H Creatinine 3.6 H Glucose POC Glucose Lactic Acid Calcium 7.4 L Phosphorus Magnesium Ferritin Direct Bilirubin AST ALT Alkaline Phosphatase Lactate Dehydrogenase Total Creatine Kinase C-Reactive Protein Total Protein Albumin Triglycerides Arterial Blood Glucose Arterial Blood Ionized Calcium 4.2 L Urine Creatinine Urine Chloride Vancomycin Trough Coronavirus (PCR) Crossmatch 07/10/20 07/11/20 07/11/20 13:24 04:08 06:52 WBC 26.0 H RBC 2.91 L Hgb 8.2 L Hct 24.8 L MCHC RDW 17.2 H Plt Count Lymph % (Auto) [place] % (Auto) Lymph # (Auto) [place] # (Auto) Eos # (Auto) Seg Neutrophils % Seg Neuts % (Manual) Lymphocytes % (Manual) 1.0 L Monocytes % (Manual) 11.0 H Basophils % (Manual) Nucleated RBC % Seg Neutrophils # Seg Neutrophils # Man 16.9 H Lymphocytes # (Manual) 0.3 L Monocytes # (Manual) 2.9 H Eosinophils # (Manual) 1.0 H Basophils # (Manual) PT INR APTT D-Dimer Heparin Anti-Xa Level ABG pH POC ABG pCO2 POC ABG pO2 ABG pO2 ABG HCO3 ABG Hemoglobin 8.5 L ABG Oxyhemoglobin ABG Sodium 130.6 L ABG Potassium 4.9 H ABG Chloride ABG Glucose 105 H Carboxyhemoglobin Sodium Potassium Chloride Carbon Dioxide BUN Creatinine Glucose POC Glucose Lactic Acid Calcium Phosphorus Magnesium Ferritin Direct Bilirubin AST ALT Alkaline Phosphatase Lactate Dehydrogenase Total Creatine Kinase C-Reactive Protein Total Protein Albumin Triglycerides Arterial Blood Glucose 105 H Arterial Blood Ionized Calcium 4.1 L Urine Creatinine Urine Chloride Vancomycin Trough Coronavirus (PCR) Crossmatch See Detail 07/11/20 07/11/20 07/11/20 06:52 08:48 11:39 WBC RBC Hgb Hct MCHC RDW Plt Count Lymph % (Auto) [place] % (Auto) Lymph # (Auto) [place] # (Auto) Eos # (Auto) Seg Neutrophils % Seg Neuts % (Manual) Lymphocytes % (Manual) Monocytes % (Manual) Basophils % (Manual) Nucleated RBC % Seg Neutrophils # Seg Neutrophils # Man Lymphocytes # (Manual) Monocytes # (Manual) Eosinophils # (Manual) Basophils # (Manual) PT INR APTT D-Dimer Heparin Anti-Xa Level ABG pH POC ABG pCO2 POC ABG pO2 ABG pO2 ABG HCO3 ABG Hemoglobin ABG Oxyhemoglobin ABG Sodium ABG Potassium ABG Chloride ABG Glucose Carboxyhemoglobin Sodium 133 L 134 L Potassium 5.3 H Chloride 93.5 L 94.8 L Carbon Dioxide BUN 101 H 99 H Creatinine 4.5 H 4.6 H Glucose 102 H POC Glucose 116 H Lactic Acid Calcium 7.8 L 7.6 L Phosphorus Magnesium Ferritin Direct Bilirubin AST ALT Alkaline Phosphatase Lactate Dehydrogenase Total Creatine Kinase C-Reactive Protein Total Protein Albumin Triglycerides Arterial Blood Glucose Arterial Blood Ionized Calcium Urine Creatinine Urine Chloride Vancomycin Trough Coronavirus (PCR) Crossmatch 07/11/20 07/12/20 07/12/20 17:23 00:04 03:20 WBC RBC Hgb Hct MCHC RDW Plt Count Lymph % (Auto) [place] % (Auto) Lymph # (Auto) [place] # (Auto) Eos # (Auto) Seg Neutrophils % Seg Neuts % (Manual) Lymphocytes % (Manual) Monocytes % (Manual) Basophils % (Manual) Nucleated RBC % Seg Neutrophils # Seg Neutrophils # Man Lymphocytes # (Manual) Monocytes # (Manual) Eosinophils # (Manual) Basophils # (Manual) PT INR APTT D-Dimer Heparin Anti-Xa Level ABG pH POC ABG pCO2 49.1 H POC ABG pO2 130.3 H ABG pO2 ABG HCO3 ABG Hemoglobin 8.7 L ABG Oxyhemoglobin ABG Sodium 135.2 L ABG Potassium 4.7 H ABG Chloride ABG Glucose 128 H Carboxyhemoglobin Sodium Potassium Chloride Carbon Dioxide BUN Creatinine Glucose POC Glucose 142 H 113 H Lactic Acid Calcium Phosphorus Magnesium Ferritin Direct Bilirubin AST ALT Alkaline Phosphatase Lactate Dehydrogenase Total Creatine Kinase C-Reactive Protein Total Protein Albumin Triglycerides Arterial Blood Glucose 128 H Arterial Blood Ionized Calcium 4.4 L Urine Creatinine Urine Chloride Vancomycin Trough Coronavirus (PCR) Crossmatch 07/12/20 07/12/20 07/12/20 03:40 03:40 04:00 WBC 24.3 H RBC 2.83 L Hgb 8.0 L Hct 24.9 L MCHC RDW 17.7 H Plt Count Lymph % (Auto) 5.6 L [place] % (Auto) 7.4 H Lymph # (Auto) [place] # (Auto) 1.8 H Eos # (Auto) 0.7 H Seg Neutrophils % 83.9 H Seg Neuts % (Manual) Lymphocytes % (Manual) Monocytes % (Manual) Basophils % (Manual) Nucleated RBC % Seg Neutrophils # 20.4 H Seg Neutrophils # Man Lymphocytes # (Manual) Monocytes # (Manual) Eosinophils # (Manual) Basophils # (Manual) PT INR APTT D-Dimer Heparin Anti-Xa Level ABG pH POC ABG pCO2 POC ABG pO2 ABG pO2 ABG HCO3 ABG Hemoglobin ABG Oxyhemoglobin ABG Sodium ABG Potassium ABG Chloride ABG Glucose Carboxyhemoglobin Sodium 134 L Potassium Chloride 95.5 L Carbon Dioxide BUN 79 H Creatinine 3.7 H Glucose 127 H POC Glucose Lactic Acid Calcium 7.8 L Phosphorus Magnesium Ferritin Direct Bilirubin AST ALT Alkaline Phosphatase Lactate Dehydrogenase Total Creatine Kinase C-Reactive Protein Total Protein Albumin Triglycerides 246 H Arterial Blood Glucose Arterial Blood Ionized Calcium Urine Creatinine Urine Chloride Vancomycin Trough Coronavirus (PCR) Crossmatch 07/12/20 07/12/20 07/12/20 05:48 11:50 17:29 WBC RBC Hgb Hct MCHC RDW Plt Count Lymph % (Auto) [place] % (Auto) Lymph # (Auto) [place] # (Auto) Eos # (Auto) Seg Neutrophils % Seg Neuts % (Manual) Lymphocytes % (Manual) Monocytes % (Manual) Basophils % (Manual) Nucleated RBC % Seg Neutrophils # Seg Neutrophils # Man Lymphocytes # (Manual) Monocytes # (Manual) Eosinophils # (Manual) Basophils # (Manual) PT INR APTT D-Dimer Heparin Anti-Xa Level ABG pH POC ABG pCO2 POC ABG pO2 ABG pO2 ABG HCO3 ABG Hemoglobin ABG Oxyhemoglobin ABG Sodium ABG Potassium ABG Chloride ABG Glucose Carboxyhemoglobin Sodium Potassium Chloride Carbon Dioxide BUN Creatinine Glucose POC Glucose 136 H 113 H 110 H Lactic Acid Calcium Phosphorus Magnesium Ferritin Direct Bilirubin AST ALT Alkaline Phosphatase Lactate Dehydrogenase Total Creatine Kinase C-Reactive Protein Total Protein Albumin Triglycerides Arterial Blood Glucose Arterial Blood Ionized Calcium Urine Creatinine Urine Chloride Vancomycin Trough Coronavirus (PCR) Crossmatch 07/12/20 07/13/20 07/13/20 23:43 03:11 06:59 WBC RBC Hgb Hct MCHC RDW Plt Count Lymph % (Auto) [place] % (Auto) Lymph # (Auto) [place] # (Auto) Eos # (Auto) Seg Neutrophils % Seg Neuts % (Manual) Lymphocytes % (Manual) Monocytes % (Manual) Basophils % (Manual) Nucleated RBC % Seg Neutrophils # Seg Neutrophils # Man Lymphocytes # (Manual) Monocytes # (Manual) Eosinophils # (Manual) Basophils # (Manual) PT INR APTT D-Dimer Heparin Anti-Xa Level ABG pH POC ABG pCO2 49.0 H POC ABG pO2 69.6 L ABG pO2 ABG HCO3 ABG Hemoglobin 8.5 L ABG Oxyhemoglobin 90.5 L ABG Sodium 133.6 L ABG Potassium 5.1 H ABG Chloride ABG Glucose 104 H Carboxyhemoglobin Sodium 133 L Potassium 5.7 H Chloride 96.3 L Carbon Dioxide 20 L D BUN 102 H Creatinine 4.4 H Glucose 101 H POC Glucose 120 H Lactic Acid Calcium 7.9 L Phosphorus Magnesium Ferritin Direct Bilirubin AST 61 H ALT 85 H Alkaline Phosphatase 144 H Lactate Dehydrogenase Total Creatine Kinase C-Reactive Protein Total Protein 5.4 L Albumin 2.0 L Triglycerides Arterial Blood Glucose 104 H Arterial Blood Ionized Calcium 4.3 L Urine Creatinine Urine Chloride Vancomycin Trough Coronavirus (PCR) Crossmatch 07/13/20 07/13/20 07/13/20 08:48 12:14 15:12 WBC 27.5 H RBC 3.03 L Hgb 8.7 L Hct 27.0 L MCHC RDW 18.0 H Plt Count Lymph % (Auto) [place] % (Auto) Lymph # (Auto) [place] # (Auto) Eos # (Auto) Seg Neutrophils % Seg Neuts % (Manual) Lymphocytes % (Manual) Monocytes % (Manual) Basophils % (Manual) Nucleated RBC % Seg Neutrophils # Seg Neutrophils # Man Lymphocytes # (Manual) Monocytes # (Manual) Eosinophils # (Manual) Basophils # (Manual) PT INR APTT D-Dimer Heparin Anti-Xa Level ABG pH POC ABG pCO2 POC ABG pO2 ABG pO2 ABG HCO3 ABG Hemoglobin ABG Oxyhemoglobin ABG Sodium ABG Potassium ABG Chloride ABG Glucose Carboxyhemoglobin Sodium Potassium 5.5 H Chloride Carbon Dioxide BUN 88 H Creatinine 3.8 H Glucose 133 H POC Glucose 134 H Lactic Acid Calcium 7.5 L Phosphorus Magnesium Ferritin Direct Bilirubin AST ALT Alkaline Phosphatase Lactate Dehydrogenase Total Creatine Kinase C-Reactive Protein Total Protein Albumin Triglycerides Arterial Blood Glucose Arterial Blood Ionized Calcium Urine Creatinine Urine Chloride Vancomycin Trough Coronavirus (PCR) Crossmatch 07/13/20 07/13/20 07/13/20 16:46 16:47 18:46 WBC RBC Hgb 7.4 L Hct 22.1 L MCHC RDW Plt Count Lymph % (Auto) [place] % (Auto) Lymph # (Auto) [place] # (Auto) Eos # (Auto) Seg Neutrophils % Seg Neuts % (Manual) Lymphocytes % (Manual) Monocytes % (Manual) Basophils % (Manual) Nucleated RBC % Seg Neutrophils # Seg Neutrophils # Man Lymphocytes # (Manual) Monocytes # (Manual) Eosinophils # (Manual) Basophils # (Manual) PT INR APTT D-Dimer Heparin Anti-Xa Level ABG pH POC ABG pCO2 POC ABG pO2 ABG pO2 ABG HCO3 ABG Hemoglobin ABG Oxyhemoglobin ABG Sodium ABG Potassium ABG Chloride ABG Glucose Carboxyhemoglobin Sodium Potassium Chloride Carbon Dioxide BUN Creatinine Glucose POC Glucose 118 H Lactic Acid Calcium Phosphorus Magnesium Ferritin Direct Bilirubin AST ALT Alkaline Phosphatase Lactate Dehydrogenase Total Creatine Kinase C-Reactive Protein Total Protein Albumin Triglycerides Arterial Blood Glucose Arterial Blood Ionized Calcium Urine Creatinine Urine Chloride Vancomycin Trough Coronavirus (PCR) Crossmatch See Detail 07/13/20 07/14/20 07/14/20 23:34 04:25 12:21 WBC RBC Hgb Hct MCHC RDW Plt Count Lymph % (Auto) [place] % (Auto) Lymph # (Auto) [place] # (Auto) Eos # (Auto) Seg Neutrophils % Seg Neuts % (Manual) Lymphocytes % (Manual) Monocytes % (Manual) Basophils % (Manual) Nucleated RBC % Seg Neutrophils # Seg Neutrophils # Man Lymphocytes # (Manual) Monocytes # (Manual) Eosinophils # (Manual) Basophils # (Manual) PT INR APTT D-Dimer Heparin Anti-Xa Level ABG pH POC ABG pCO2 POC ABG pO2 ABG pO2 ABG HCO3 ABG Hemoglobin 8.9 L ABG Oxyhemoglobin ABG Sodium 133.1 L ABG Potassium 4.7 H ABG Chloride ABG Glucose 113 H Carboxyhemoglobin Sodium Potassium Chloride Carbon Dioxide BUN Creatinine Glucose POC Glucose 109 H 109 H Lactic Acid Calcium Phosphorus Magnesium Ferritin Direct Bilirubin AST ALT Alkaline Phosphatase Lactate Dehydrogenase Total Creatine Kinase C-Reactive Protein Total Protein Albumin Triglycerides Arterial Blood Glucose 113 H Arterial Blood Ionized Calcium 4.4 L Urine Creatinine Urine Chloride Vancomycin Trough Coronavirus (PCR) Crossmatch 07/14/20 07/14/20 07/14/20 16:44 16:44 20:20 WBC 30.1 H RBC 2.60 L Hgb 7.4 L 5.6 L* Hct 23.0 L 18.1 L* MCHC RDW 18.0 H Plt Count Lymph % (Auto) [place] % (Auto) Lymph # (Auto) [place] # (Auto) Eos # (Auto) Seg Neutrophils % Seg Neuts % (Manual) 78.0 H Lymphocytes % (Manual) 5.0 L Monocytes % (Manual) Basophils % (Manual) Nucleated RBC % Seg Neutrophils # Seg Neutrophils # Man 23.5 H Lymphocytes # (Manual) Monocytes # (Manual) 0.9 H Eosinophils # (Manual) Basophils # (Manual) PT 15.6 H INR 1.26 H APTT D-Dimer Heparin Anti-Xa Level ABG pH POC ABG pCO2 POC ABG pO2 ABG pO2 ABG HCO3 ABG Hemoglobin ABG Oxyhemoglobin ABG Sodium ABG Potassium ABG Chloride ABG Glucose Carboxyhemoglobin Sodium Potassium Chloride Carbon Dioxide BUN Creatinine Glucose POC Glucose Lactic Acid Calcium Phosphorus Magnesium Ferritin Direct Bilirubin AST ALT Alkaline Phosphatase Lactate Dehydrogenase Total Creatine Kinase C-Reactive Protein Total Protein Albumin Triglycerides Arterial Blood Glucose Arterial Blood Ionized Calcium Urine Creatinine Urine Chloride Vancomycin Trough Coronavirus (PCR) Crossmatch 07/14/20 07/14/20 07/15/20 21:19 23:45 04:13 WBC RBC Hgb Hct MCHC RDW Plt Count Lymph % (Auto) [place] % (Auto) Lymph # (Auto) [place] # (Auto) Eos # (Auto) Seg Neutrophils % Seg Neuts % (Manual) Lymphocytes % (Manual) Monocytes % (Manual) Basophils % (Manual) Nucleated RBC % Seg Neutrophils # Seg Neutrophils # Man Lymphocytes # (Manual) Monocytes # (Manual) Eosinophils # (Manual) Basophils # (Manual) PT INR APTT D-Dimer Heparin Anti-Xa Level ABG pH POC ABG pCO2 POC ABG pO2 ABG pO2 ABG HCO3 ABG Hemoglobin 5.8 L 6.0 L ABG Oxyhemoglobin 93.8 L ABG Sodium 132.2 L 130.3 L ABG Potassium 5.5 H 5.8 H ABG Chloride ABG Glucose 118 H 122 H Carboxyhemoglobin Sodium Potassium Chloride Carbon Dioxide BUN Creatinine Glucose POC Glucose 126 H Lactic Acid Calcium Phosphorus Magnesium Ferritin Direct Bilirubin AST ALT Alkaline Phosphatase Lactate Dehydrogenase Total Creatine Kinase C-Reactive Protein Total Protein Albumin Triglycerides Arterial Blood Glucose 118 H 122 H Arterial Blood Ionized Calcium 4.3 L 4.2 L Urine Creatinine Urine Chloride Vancomycin Trough Coronavirus (PCR) Crossmatch 07/15/20 07/15/20 07/15/20 08:21 08:21 08:38 WBC 45.5 H* RBC 2.42 L Hgb 7.1 L Hct 21.5 L MCHC RDW 16.5 H Plt Count Lymph % (Auto) [place] % (Auto) Lymph # (Auto) [place] # (Auto) Eos # (Auto) Seg Neutrophils % Seg Neuts % (Manual) 89.0 H Lymphocytes % (Manual) 7.0 L Monocytes % (Manual) Basophils % (Manual) Nucleated RBC % Seg Neutrophils # Seg Neutrophils # Man 40.5 H Lymphocytes # (Manual) Monocytes # (Manual) 1.8 H Eosinophils # (Manual) Basophils # (Manual) PT 17.6 H INR 1.46 H APTT D-Dimer Heparin Anti-Xa Level ABG pH POC ABG pCO2 POC ABG pO2 ABG pO2 ABG HCO3 ABG Hemoglobin ABG Oxyhemoglobin ABG Sodium ABG Potassium ABG Chloride ABG Glucose Carboxyhemoglobin Sodium 131 L Potassium 6.0 H Chloride 94.6 L Carbon Dioxide 20 L BUN 116 H Creatinine 4.6 H Glucose 123 H POC Glucose Lactic Acid Calcium 7.6 L Phosphorus Magnesium Ferritin Direct Bilirubin AST ALT Alkaline Phosphatase Lactate Dehydrogenase Total Creatine Kinase C-Reactive Protein Total Protein Albumin Triglycerides Arterial Blood Glucose Arterial Blood Ionized Calcium Urine Creatinine Urine Chloride Vancomycin Trough Coronavirus (PCR) Crossmatch 07/15/20 07/15/20 07/15/20 11:29 17:23 18:52 WBC RBC Hgb Hct MCHC RDW Plt Count Lymph % (Auto) [place] % (Auto) Lymph # (Auto) [place] # (Auto) Eos # (Auto) Seg Neutrophils % Seg Neuts % (Manual) Lymphocytes % (Manual) Monocytes % (Manual) Basophils % (Manual) Nucleated RBC % Seg Neutrophils # Seg Neutrophils # Man Lymphocytes # (Manual) Monocytes # (Manual) Eosinophils # (Manual) Basophils # (Manual) PT INR APTT D-Dimer Heparin Anti-Xa Level ABG pH POC ABG pCO2 POC ABG pO2 ABG pO2 ABG HCO3 ABG Hemoglobin ABG Oxyhemoglobin ABG Sodium ABG Potassium ABG Chloride ABG Glucose Carboxyhemoglobin Sodium Potassium Chloride 97.9 L Carbon Dioxide BUN 78 H Creatinine 3.1 H Glucose 114 H POC Glucose 181 H 120 H Lactic Acid Calcium 7.3 L Phosphorus Magnesium Ferritin Direct Bilirubin AST ALT Alkaline Phosphatase Lactate Dehydrogenase Total Creatine Kinase C-Reactive Protein Total Protein Albumin Triglycerides Arterial Blood Glucose Arterial Blood Ionized Calcium Urine Creatinine Urine Chloride Vancomycin Trough Coronavirus (PCR) Crossmatch 07/15/20 07/16/20 07/16/20 18:52 01:10 03:38 WBC RBC Hgb 9.9 L 8.5 L Hct 29.8 L D 24.7 L MCHC RDW Plt Count Lymph % (Auto) [place] % (Auto) Lymph # (Auto) [place] # (Auto) Eos # (Auto) Seg Neutrophils % Seg Neuts % (Manual) Lymphocytes % (Manual) Monocytes % (Manual) Basophils % (Manual) Nucleated RBC % Seg Neutrophils # Seg Neutrophils # Man Lymphocytes # (Manual) Monocytes # (Manual) Eosinophils # (Manual) Basophils # (Manual) PT INR APTT D-Dimer Heparin Anti-Xa Level ABG pH 7.314 L POC ABG pCO2 48.5 H POC ABG pO2 58.9 L ABG pO2 ABG HCO3 ABG Hemoglobin 8.7 L ABG Oxyhemoglobin 86.7 L ABG Sodium 132.7 L ABG Potassium 5.2 H ABG Chloride ABG Glucose 99 H Carboxyhemoglobin Sodium Potassium Chloride Carbon Dioxide BUN Creatinine Glucose POC Glucose Lactic Acid Calcium Phosphorus Magnesium Ferritin Direct Bilirubin AST ALT Alkaline Phosphatase Lactate Dehydrogenase Total Creatine Kinase C-Reactive Protein Total Protein Albumin Triglycerides Arterial Blood Glucose 99 H Arterial Blood Ionized Calcium 3.9 L Urine Creatinine Urine Chloride Vancomycin Trough Coronavirus (PCR) Crossmatch 07/16/20 07/16/20 07/16/20 04:28 04:28 07:29 WBC 48.9 H* RBC 2.86 L Hgb 8.6 L 7.9 L Hct 25.4 L 24.4 L MCHC RDW 15.6 H Plt Count Lymph % (Auto) [place] % (Auto) Lymph # (Auto) [place] # (Auto) Eos # (Auto) Seg Neutrophils % Seg Neuts % (Manual) Lymphocytes % (Manual) Monocytes % (Manual) Basophils % (Manual) Nucleated RBC % Seg Neutrophils # Seg Neutrophils # Man Lymphocytes # (Manual) Monocytes # (Manual) Eosinophils # (Manual) Basophils # (Manual) PT INR APTT D-Dimer Heparin Anti-Xa Level ABG pH POC ABG pCO2 POC ABG pO2 ABG pO2 ABG HCO3 ABG Hemoglobin ABG Oxyhemoglobin ABG Sodium ABG Potassium ABG Chloride ABG Glucose Carboxyhemoglobin Sodium 136 L Potassium 5.4 H Chloride 95.0 L Carbon Dioxide BUN 85 H Creatinine 3.4 H Glucose 66 L POC Glucose Lactic Acid Calcium 6.8 L Phosphorus Magnesium Ferritin Direct Bilirubin AST ALT Alkaline Phosphatase Lactate Dehydrogenase Total Creatine Kinase C-Reactive Protein Total Protein Albumin Triglycerides Arterial Blood Glucose Arterial Blood Ionized Calcium Urine Creatinine Urine Chloride Vancomycin Trough Coronavirus (PCR) Crossmatch 07/16/20 07/16/20 07/16/20 11:52 18:06 18:08 WBC RBC Hgb 7.4 L Hct 22.5 L MCHC RDW Plt Count Lymph % (Auto) [place] % (Auto) Lymph # (Auto) [place] # (Auto) Eos # (Auto) Seg Neutrophils % Seg Neuts % (Manual) Lymphocytes % (Manual) Monocytes % (Manual) Basophils % (Manual) Nucleated RBC % Seg Neutrophils # Seg Neutrophils # Man Lymphocytes # (Manual) Monocytes # (Manual) Eosinophils # (Manual) Basophils # (Manual) PT INR APTT D-Dimer Heparin Anti-Xa Level ABG pH POC ABG pCO2 POC ABG pO2 ABG pO2 ABG HCO3 ABG Hemoglobin ABG Oxyhemoglobin ABG Sodium ABG Potassium ABG Chloride ABG Glucose Carboxyhemoglobin Sodium Potassium Chloride Carbon Dioxide BUN Creatinine Glucose POC Glucose 124 H 108 H Lactic Acid Calcium Phosphorus Magnesium Ferritin Direct Bilirubin AST ALT Alkaline Phosphatase Lactate Dehydrogenase Total Creatine Kinase C-Reactive Protein Total Protein Albumin Triglycerides Arterial Blood Glucose Arterial Blood Ionized Calcium Urine Creatinine Urine Chloride Vancomycin Trough Coronavirus (PCR) Crossmatch 07/17/20 07/17/20 07/17/20 03:27 15:25 15:25 WBC 46.2 H* RBC 2.05 L Hgb 6.1 L Hct 18.4 L* MCHC RDW 15.6 H Plt Count Lymph % (Auto) [place] % (Auto) Lymph # (Auto) [place] # (Auto) Eos # (Auto) Seg Neutrophils % Seg Neuts % (Manual) 87.0 H Lymphocytes % (Manual) 3.0 L Monocytes % (Manual) Basophils % (Manual) Nucleated RBC % Seg Neutrophils # Seg Neutrophils # Man 40.2 H Lymphocytes # (Manual) Monocytes # (Manual) 3.2 H Eosinophils # (Manual) Basophils # (Manual) PT 18.2 H INR 1.52 H APTT D-Dimer Heparin Anti-Xa Level ABG pH 7.313 L POC ABG pCO2 50.9 H POC ABG pO2 ABG pO2 ABG HCO3 ABG Hemoglobin 7.5 L ABG Oxyhemoglobin ABG Sodium 131.8 L ABG Potassium 4.6 H ABG Chloride ABG Glucose 105 H Carboxyhemoglobin Sodium Potassium Chloride Carbon Dioxide BUN Creatinine Glucose POC Glucose Lactic Acid Calcium Phosphorus Magnesium Ferritin Direct Bilirubin AST ALT Alkaline Phosphatase Lactate Dehydrogenase Total Creatine Kinase C-Reactive Protein Total Protein Albumin Triglycerides Arterial Blood Glucose 105 H Arterial Blood Ionized Calcium 3.9 L Urine Creatinine Urine Chloride Vancomycin Trough Coronavirus (PCR) Crossmatch 07/17/20 07/18/20 07/18/20 Unknown 03:10 05:06 WBC 37.9 H RBC 2.91 L Hgb 8.5 L Hct 25.6 L D MCHC RDW Plt Count Lymph % (Auto) [place] % (Auto) Lymph # (Auto) [place] # (Auto) Eos # (Auto) Seg Neutrophils % Seg Neuts % (Manual) Lymphocytes % (Manual) Monocytes % (Manual) Basophils % (Manual) Nucleated RBC % Seg Neutrophils # Seg Neutrophils # Man Lymphocytes # (Manual) Monocytes # (Manual) Eosinophils # (Manual) Basophils # (Manual) PT INR APTT D-Dimer Heparin Anti-Xa Level ABG pH POC ABG pCO2 POC ABG pO2 114.9 H ABG pO2 ABG HCO3 ABG Hemoglobin 8.6 L ABG Oxyhemoglobin ABG Sodium 130.6 L ABG Potassium 4.9 H ABG Chloride ABG Glucose Carboxyhemoglobin Sodium Potassium Chloride Carbon Dioxide BUN Creatinine Glucose POC Glucose Lactic Acid Calcium Phosphorus Magnesium Ferritin Direct Bilirubin AST ALT Alkaline Phosphatase Lactate Dehydrogenase Total Creatine Kinase C-Reactive Protein Total Protein Albumin Triglycerides Arterial Blood Glucose Arterial Blood Ionized Calcium 3.8 L Urine Creatinine Urine Chloride Vancomycin Trough Coronavirus (PCR) Crossmatch See Detail 07/18/20 07/19/20 07/19/20 05:06 00:06 03:57 WBC RBC Hgb Hct MCHC RDW Plt Count Lymph % (Auto) [place] % (Auto) Lymph # (Auto) [place] # (Auto) Eos # (Auto) Seg Neutrophils % Seg Neuts % (Manual) Lymphocytes % (Manual) Monocytes % (Manual) Basophils % (Manual) Nucleated RBC % Seg Neutrophils # Seg Neutrophils # Man Lymphocytes # (Manual) Monocytes # (Manual) Eosinophils # (Manual) Basophils # (Manual) PT INR APTT D-Dimer Heparin Anti-Xa Level ABG pH POC ABG pCO2 POC ABG pO2 ABG pO2 ABG HCO3 ABG Hemoglobin 8.6 L ABG Oxyhemoglobin ABG Sodium 130.4 L ABG Potassium ABG Chloride ABG Glucose Carboxyhemoglobin Sodium Potassium 5.4 H Chloride Carbon Dioxide BUN 79 H Creatinine 3.2 H Glucose POC Glucose 69 L Lactic Acid Calcium 6.9 L Phosphorus Magnesium Ferritin Direct Bilirubin AST ALT 58 H Alkaline Phosphatase Lactate Dehydrogenase Total Creatine Kinase C-Reactive Protein Total Protein 4.3 L D Albumin 1.7 L Triglycerides 306 H Arterial Blood Glucose Arterial Blood Ionized Calcium 3.9 L Urine Creatinine Urine Chloride Vancomycin Trough Coronavirus (PCR) Crossmatch 07/19/20 07/19/20 07/19/20 05:22 09:15 09:15 WBC 32.5 H RBC 2.57 L Hgb 7.8 L Hct 22.8 L MCHC RDW 15.3 H Plt Count Lymph % (Auto) [place] % (Auto) Lymph # (Auto) [place] # (Auto) Eos # (Auto) Seg Neutrophils % Seg Neuts % (Manual) Lymphocytes % (Manual) Monocytes % (Manual) Basophils % (Manual) Nucleated RBC % Seg Neutrophils # Seg Neutrophils # Man Lymphocytes # (Manual) Monocytes # (Manual) Eosinophils # (Manual) Basophils # (Manual) PT INR APTT D-Dimer Heparin Anti-Xa Level ABG pH POC ABG pCO2 POC ABG pO2 ABG pO2 ABG HCO3 ABG Hemoglobin ABG Oxyhemoglobin ABG Sodium ABG Potassium ABG Chloride ABG Glucose Carboxyhemoglobin Sodium 135 L Potassium Chloride 96.3 L Carbon Dioxide BUN 61 H Creatinine 2.8 H Glucose POC Glucose 64 L Lactic Acid Calcium 6.8 L Phosphorus Magnesium Ferritin Direct Bilirubin AST 54 H ALT 65 H Alkaline Phosphatase Lactate Dehydrogenase Total Creatine Kinase C-Reactive Protein Total Protein 4.3 L Albumin 1.8 L Triglycerides Arterial Blood Glucose Arterial Blood Ionized Calcium Urine Creatinine Urine Chloride Vancomycin Trough Coronavirus (PCR) Crossmatch 07/20/20 07/20/20 07/20/20 05:20 06:00 06:07 WBC 28.1 H RBC 2.53 L Hgb 7.7 L Hct 22.7 L MCHC RDW 15.5 H Plt Count Lymph % (Auto) [place] % (Auto) Lymph # (Auto) [place] # (Auto) Eos # (Auto) Seg Neutrophils % Seg Neuts % (Manual) Lymphocytes % (Manual) Monocytes % (Manual) Basophils % (Manual) Nucleated RBC % Seg Neutrophils # Seg Neutrophils # Man Lymphocytes # (Manual) Monocytes # (Manual) Eosinophils # (Manual) Basophils # (Manual) PT INR APTT D-Dimer Heparin Anti-Xa Level ABG pH POC ABG pCO2 POC ABG pO2 ABG pO2 ABG HCO3 ABG Hemoglobin 6.3 L ABG Oxyhemoglobin ABG Sodium 130.0 L ABG Potassium ABG Chloride ABG Glucose 114 H Carboxyhemoglobin Sodium Potassium Chloride Carbon Dioxide BUN Creatinine Glucose POC Glucose 110 H Lactic Acid Calcium Phosphorus Magnesium Ferritin Direct Bilirubin AST ALT Alkaline Phosphatase Lactate Dehydrogenase Total Creatine Kinase C-Reactive Protein Total Protein Albumin Triglycerides Arterial Blood Glucose 114 H Arterial Blood Ionized Calcium 3.9 L Urine Creatinine Urine Chloride Vancomycin Trough Coronavirus (PCR) Crossmatch 07/20/20 07/21/20 07/21/20 17:19 05:02 05:40 WBC 32.9 H RBC 2.78 L Hgb 8.5 L Hct 25.2 L MCHC RDW 15.7 H Plt Count 74 L Lymph % (Auto) [place] % (Auto) Lymph # (Auto) [place] # (Auto) Eos # (Auto) Seg Neutrophils % Seg Neuts % (Manual) Lymphocytes % (Manual) Monocytes % (Manual) Basophils % (Manual) Nucleated RBC % Seg Neutrophils # Seg Neutrophils # Man Lymphocytes # (Manual) Monocytes # (Manual) Eosinophils # (Manual) Basophils # (Manual) PT INR APTT D-Dimer Heparin Anti-Xa Level ABG pH POC ABG pCO2 POC ABG pO2 73.2 L ABG pO2 ABG HCO3 ABG Hemoglobin 9.1 L ABG Oxyhemoglobin 93.4 L ABG Sodium ABG Potassium 3.1 L ABG Chloride ABG Glucose 112 H Carboxyhemoglobin Sodium Potassium Chloride Carbon Dioxide BUN Creatinine Glucose POC Glucose 137 H Lactic Acid Calcium Phosphorus Magnesium Ferritin Direct Bilirubin AST ALT Alkaline Phosphatase Lactate Dehydrogenase Total Creatine Kinase C-Reactive Protein Total Protein Albumin Triglycerides Arterial Blood Glucose 112 H Arterial Blood Ionized Calcium Urine Creatinine Urine Chloride Vancomycin Trough Coronavirus (PCR) Crossmatch 07/22/20 07/22/20 07/22/20 04:11 16:00 16:00 WBC 38.7 H RBC 2.72 L Hgb 8.1 L Hct 24.5 L MCHC RDW 16.1 H Plt Count Lymph % (Auto) [place] % (Auto) Lymph # (Auto) [place] # (Auto) Eos # (Auto) Seg Neutrophils % Seg Neuts % (Manual) Lymphocytes % (Manual) Monocytes % (Manual) Basophils % (Manual) Nucleated RBC % Seg Neutrophils # Seg Neutrophils # Man Lymphocytes # (Manual) Monocytes # (Manual) Eosinophils # (Manual) Basophils # (Manual) PT INR APTT D-Dimer Heparin Anti-Xa Level ABG pH POC ABG pCO2 POC ABG pO2 67.7 L ABG pO2 ABG HCO3 ABG Hemoglobin 7.4 L ABG Oxyhemoglobin 91.7 L ABG Sodium ABG Potassium 2.9 L ABG Chloride ABG Glucose 105 H Carboxyhemoglobin Sodium Potassium Chloride Carbon Dioxide BUN Creatinine Glucose POC Glucose Lactic Acid Calcium Phosphorus Magnesium Ferritin Direct Bilirubin AST ALT Alkaline Phosphatase Lactate Dehydrogenase Total Creatine Kinase C-Reactive Protein Total Protein Albumin Triglycerides 197 H Arterial Blood Glucose 105 H Arterial Blood Ionized Calcium Urine Creatinine Urine Chloride Vancomycin Trough Coronavirus (PCR) Crossmatch 07/23/20 07/23/20 07/23/20 04:56 11:49 Unknown WBC RBC Hgb Hct MCHC RDW Plt Count Lymph % (Auto) [place] % (Auto) Lymph # (Auto) [place] # (Auto) Eos # (Auto) Seg Neutrophils % Seg Neuts % (Manual) Lymphocytes % (Manual) Monocytes % (Manual) Basophils % (Manual) Nucleated RBC % Seg Neutrophils # Seg Neutrophils # Man Lymphocytes # (Manual) Monocytes # (Manual) Eosinophils # (Manual) Basophils # (Manual) PT INR APTT D-Dimer Heparin Anti-Xa Level ABG pH POC ABG pCO2 POC ABG pO2 75.7 L ABG pO2 ABG HCO3 ABG Hemoglobin 9.3 L ABG Oxyhemoglobin ABG Sodium ABG Potassium 3.1 L ABG Chloride 108.0 H ABG Glucose 101 H Carboxyhemoglobin Sodium Potassium 3.1 L D Chloride Carbon Dioxide BUN 36 H Creatinine 2.1 H Glucose 103 H POC Glucose 107 H Lactic Acid Calcium Phosphorus Magnesium Ferritin Direct Bilirubin AST ALT Alkaline Phosphatase Lactate Dehydrogenase Total Creatine Kinase C-Reactive Protein Total Protein Albumin Triglycerides Arterial Blood Glucose 101 H Arterial Blood Ionized Calcium Urine Creatinine Urine Chloride Vancomycin Trough Coronavirus (PCR) Crossmatch 07/24/20 07/24/20 07/24/20 06:40 06:40 20:38 WBC 31.4 H RBC 2.37 L Hgb 7.2 L Hct 21.7 L MCHC RDW 17.0 H Plt Count Lymph % (Auto) [place] % (Auto) Lymph # (Auto) [place] # (Auto) Eos # (Auto) Seg Neutrophils % Seg Neuts % (Manual) 85.0 H Lymphocytes % (Manual) 6.0 L Monocytes % (Manual) Basophils % (Manual) Nucleated RBC % Seg Neutrophils # Seg Neutrophils # Man 26.7 H Lymphocytes # (Manual) Monocytes # (Manual) 0.9 H Eosinophils # (Manual) Basophils # (Manual) 0.3 H PT INR APTT D-Dimer Heparin Anti-Xa Level ABG pH POC ABG pCO2 POC ABG pO2 ABG pO2 ABG HCO3 ABG Hemoglobin ABG Oxyhemoglobin ABG Sodium ABG Potassium ABG Chloride ABG Glucose Carboxyhemoglobin Sodium Potassium 3.1 L Chloride Carbon Dioxide BUN 46 H Creatinine 2.5 H Glucose 109 H POC Glucose Lactic Acid Calcium Phosphorus Magnesium Ferritin Direct Bilirubin AST 46 H ALT 74 H Alkaline Phosphatase 180 H Lactate Dehydrogenase Total Creatine Kinase C-Reactive Protein Total Protein 4.6 L Albumin 2.0 L Triglycerides Arterial Blood Glucose Arterial Blood Ionized Calcium Urine Creatinine Urine Chloride Vancomycin Trough Coronavirus (PCR) Crossmatch See Detail 07/24/20 07/25/20 07/25/20 20:40 05:39 05:39 WBC 26.6 H RBC 2.79 L Hgb 8.5 L Hct 25.6 L MCHC RDW 16.1 H Plt Count Lymph % (Auto) [place] % (Auto) Lymph # (Auto) [place] # (Auto) Eos # (Auto) Seg Neutrophils % Seg Neuts % (Manual) 72.0 H Lymphocytes % (Manual) 2.0 L Monocytes % (Manual) Basophils % (Manual) 3.0 H Nucleated RBC % 1.0 H Seg Neutrophils # Seg Neutrophils # Man 19.2 H Lymphocytes # (Manual) 0.5 L Monocytes # (Manual) 1.6 H Eosinophils # (Manual) 0.5 H Basophils # (Manual) 0.8 H PT 15.3 H INR 1.21 H APTT D-Dimer Heparin Anti-Xa Level ABG pH POC ABG pCO2 POC ABG pO2 ABG pO2 ABG HCO3 ABG Hemoglobin ABG Oxyhemoglobin ABG Sodium ABG Potassium ABG Chloride ABG Glucose Carboxyhemoglobin Sodium Potassium Chloride Carbon Dioxide BUN 55 H Creatinine 2.9 H Glucose POC Glucose Lactic Acid Calcium Phosphorus Magnesium Ferritin Direct Bilirubin AST ALT Alkaline Phosphatase Lactate Dehydrogenase Total Creatine Kinase C-Reactive Protein Total Protein Albumin Triglycerides Arterial Blood Glucose Arterial Blood Ionized Calcium Urine Creatinine Urine Chloride Vancomycin Trough Coronavirus (PCR) Crossmatch 07/25/20 07/26/20 07/26/20 17:22 08:46 08:46 WBC RBC Hgb Hct MCHC RDW Plt Count Lymph % (Auto) [place] % (Auto) Lymph # (Auto) [place] # (Auto) Eos # (Auto) Seg Neutrophils % Seg Neuts % (Manual) Lymphocytes % (Manual) Monocytes % (Manual) Basophils % (Manual) Nucleated RBC % Seg Neutrophils # Seg Neutrophils # Man Lymphocytes # (Manual) Monocytes # (Manual) Eosinophils # (Manual) Basophils # (Manual) PT INR APTT D-Dimer Heparin Anti-Xa Level ABG pH POC ABG pCO2 POC ABG pO2 ABG pO2 ABG HCO3 ABG Hemoglobin ABG Oxyhemoglobin ABG Sodium ABG Potassium ABG Chloride ABG Glucose Carboxyhemoglobin Sodium Potassium Chloride Carbon Dioxide 31 H BUN 37 H Creatinine 2.2 H Glucose POC Glucose 65 L Lactic Acid Calcium 8.2 L Phosphorus Magnesium Ferritin Direct Bilirubin AST ALT Alkaline Phosphatase Lactate Dehydrogenase Total Creatine Kinase C-Reactive Protein Total Protein Albumin Triglycerides 166 H Arterial Blood Glucose Arterial Blood Ionized Calcium Urine Creatinine Urine Chloride Vancomycin Trough Coronavirus (PCR) Crossmatch 07/26/20 Unknown WBC 24.6 H RBC 2.68 L Hgb 8.3 L Hct 24.7 L MCHC RDW 16.3 H Plt Count Lymph % (Auto) [place] % (Auto) Lymph # (Auto) [place] # (Auto) Eos # (Auto) Seg Neutrophils % Seg Neuts % (Manual) 82.0 H Lymphocytes % (Manual) 5.0 L Monocytes % (Manual) 8.0 H Basophils % (Manual) Nucleated RBC % Seg Neutrophils # Seg Neutrophils # Man 20.2 H Lymphocytes # (Manual) Monocytes # (Manual) 2.0 H Eosinophils # (Manual) 0.7 H Basophils # (Manual) PT INR APTT D-Dimer Heparin Anti-Xa Level ABG pH POC ABG pCO2 POC ABG pO2 ABG pO2 ABG HCO3 ABG Hemoglobin ABG Oxyhemoglobin ABG Sodium ABG Potassium ABG Chloride ABG Glucose Carboxyhemoglobin Sodium Potassium Chloride Carbon Dioxide BUN Creatinine Glucose POC Glucose Lactic Acid Calcium Phosphorus Magnesium Ferritin Direct Bilirubin AST ALT Alkaline Phosphatase Lactate Dehydrogenase Total Creatine Kinase C-Reactive Protein Total Protein Albumin Triglycerides Arterial Blood Glucose Arterial Blood Ionized Calcium Urine Creatinine Urine Chloride Vancomycin Trough Coronavirus (PCR) Crossmatch Chest x-ray: other (none today) Allied health notes reviewed: nursing
--- NOTE | 2020-07-26 14:21 | Progress Note ---
Assessment and Plan Assessment and plan: -S/p dexamethasone and remdesivir therapy, contact/droplet isolation, vitamin C/vitamin D/zinc, anticoagulation per protocol, trend inflammatory markers -Wean mechanical ventilation as tolerated, VAP bundle -HD per nephrology -Transfuse for hemaglobin less than 7, s/p 9 units PRBC during stay -Nephrology, ID, heme-onc, GI , CCM, cardiology consulted,appreciate recommendations -BCR-ABL mutation testing pending -Per infectious disease: Continue ampicillin. Plan to exchange out lines if pressor requirement changes -Monitor leukocytosis and fevers -Hold systemic anticoagulation in setting of severe anemia -Amiodarone for rate control -s/p debridement by Dr. Kirk, WOCN consulted, WC per nursing -07/22 COVID-19 PCR negative, discontinued contact/droplet isolation DVT prophylaxis: GI prophylaxis, heparin subcu, SCDs to bilateral LE while in bed Disposition: ICU, ?placement ?trach/peg ?Ltach The high probability of a clinically significant, sudden or life threatening deterioration of the [multi] system(s) required my full and direct attention, intervention and personal management. The aggregate critical care time was [35] minutes. This time is in addition to time spent performing reported procedures but includes the following: [x] Data Review and interpretation [x] Patient assessment and monitoring of vital signs [x] Documentation [x] Medication orders and management History Interval history: 59-year-old white male who was admitted for pneumonia secondary to Covid with associated respiratory failure and sepsis. Severe septic shock COVID-19 pneumonia Sacral wound, stage 4 Acute metabolic encephalopathy Acute hypoxic respiratory failure Enterococcus bacteremia Pneumomediastinum Acute kidney injury likely secondary to acute tubular necrosis which progressed to hemodialysis SVT/proximal atrial fibrillation Elevated LFTs Anemia likely due to severe sepsis had declining renal function Morbid obesity Leukocytosis Hypoalbuminemia 06/18: Patient got intubated overnight. Patient was placed on BiPAP to maintain oxygenation with 100% FiO2 but apparently he found to take off his argueta which made his oxygen saturation go down at 60s/50s and patient was found altered mental status. Code met was called immediately. Patient was transferred to ICU and intubated, patient currently on 2 pressors, intubated with 100% FiO2, renal function noted to be decline, nephrology consulted. Discussed with [place] physician Dr. Thompson and requested call back on Saturday. Poor prognosis, continue to monitor with aggressive supportive care. Also called family/ to update clinical status. 06/19: Repeat COVID test was positive. cont cefepime, remdesivir per ID recommendation. follow inflammatory markers, cbc, bmp. placed on heparin drip for atrial fib 06/20: Remains on mechanical ventilation, on 2 pressors, on heparin drip. discussed with and daughter by phone. Renal function declining. cont supportive care for now. 06/21: Renal function cont to decline, urine outpt sig decreased. started on lasix 80mg BID, plan to follow urine output, if no improvement patient need to start on HD. called and daughter today. updated all clinical details 06/22: Renal function continues to decline with uremia and hyperkalemia. Will need to proceed with hemodialysis. Nephrology discussed with the family and they agrees for the hemodialysis. Patient remains on pressor support and mechanical ventilation. Vas-Cath placed today by vascular started on hemodialysis today. 06/23: 2nd round of HD today, remains on 2 pressors. per RN not tolerating TF, has no record of BM since 06/18. start on stool softner. follow cbc/bmp. updated family ( and daughter) by phone -all question answered to best of my knowledge and to their satisfaction. Patient remains critically ill with a very poor prognosis. 06/24: Continue supportive care, Very poor prognosis, Actuarial Consultant to discuss with family in am due to the futility of the condition. 06/25/2020 continue supportive care very poor prognosis 06/26/2020 continue supportive care very poor prognosis family updated 06/27/2020 continue supportive care and weaning if possible 06/28/2020 continue supportive care, talk with at length 06/29: Resumed care. K level persistently high. give one dose of bicarbonate, plan for HD today, recheck k after HD. updated family by phone 06/30: updated family by phone. Patient remains on amiodarone drip and vasopressin. Getting HD at the bedside. Tolerating tube feeding at low rate. 07/01: Hb dropped to 6.4 today, transfuse one unit PRBC. patient is off pressor today, remains on amioderone. cont to monitor 07/02: Called patient and updated clinical details. Patient remains critically ill, still intubated. Patient's oxygen requirement and PEEP pressure has went down. Continue weaning protocol per critical care recommendation. Patient remains off pressor. Continue to wean off from amiodarone and plan to rate control with p.o. medications. Tolerating tube feeding. H&H stable today. Order for stool for occult blood. Monitor H&H and BMP. Continue to follow clinically 07/03: discussed with [place] physician today. Patient back on 100percent Fio2 since last night. planned for emergent Hd today. spiked fever, start IV Cefepime + Vancomycin renally dosed. Restarted Levophed today, remains on amiodarone drip. Patient family was updated by critical care attending today. 07/04: Patient has hemodialysis yesterday and also plan for today for volume overload and pulmonary edema. Patient currently on 80% FiO2. Remains on Levophed and amiodarone. Hemoglobin dropped to 6.7 without any evidence of active bleeding. LFTs remain stable. Repeat Covid test on 06/30 and 07/03 remains positive. Will transfuse another unit of packed RBC today. Called family for update -explained family that patient is critically ill with very poor prognosis. 07/05: Patient on 70% FiO2 with PEEP of 14. h/h stable after transfusion. hyperkalemia improved, cont sodiumbicarbonate pill with TF. follow BMP. off levophed today, remains on amioderone. poor prognosis. 07/06: Patient remains on amiodarone drip, maintaining BP without any pressor. FiO2 requirement trended down to 60% with PEEP of 14. Continue to follow clinically. Plan to wean off amiodarone drip as tolerated. Wean off from sedation as tolerated. Updated family. Patient remains critically ill with poor prognosis. 07/07: Called family for update. Off amiodarone drip today, patient also off pressor. FiO2 requirement trended up again to 80-100%. Continue to provide supportive care, monitor clinically. Having difficulty to wean off from the vent support. Patient is persistently positive for COVID-19 and COVID-19 antibody is nonreactive. Patient remains critically ill with very poor prognosis. 07/08: Continue supportive care. Wood Finisher hand sewer and blood splatter analyst input noted. Prognosis remains guarded to poor. Management per team. Critical care time 35-minute 07/09/20 patient is tachycardic. Heart rate 121. Hemoglobin 7.3. Patient is having hemodialysis. Continue supportive care. Patient having difficulty to wean off from the vent support. Prognosis is poor. Nephrology and cardiology follow-up. Recheck CBC BMP in the morning. Continue current management. 07/10/20 patient seen and examined, remains on full ventilator patient is doing better. Patient is off pressor. heart rate 123. Hemoglobin 6.8 and hematocrit 20.7. WBC is 18.1. Continue supportive care. Patient having difficulty to wean off from the vent support. We will started on Zosyn 4.5 g IV every 8 hours. Will transfuse 1 unit of packed red blood cell. Prognosis is poor. Nephrology and cardiology follow up. Recheck CBC BMP in the morning 07/11: remains off vasopressor, h/h appropriately responded to 1 unit PRBC. HD today. Remain on MV with fiO2 at 70%. peep 10. No acute events reported overnight. 07/12: Patient remains in atrial fibrillation on the monitoring manager, vasopressor support with Levophed and vasopressin, sedated with fentanyl and propofol. Vent settings: CMV 500/25/14/0.60. Patient remains hypercarbic on ABG 07/13: Patient remains on vasopressin, fentanyl and propofol with rectal tube in place. This morning some examination patient was on assist control 25/500/14/0.60. Patient received hemodialysis today. No acute events reported overnight. 07/14: Remains on vasopressin, fentanyl and propofol with tube in place. Rectal tube in place with noted blood clots, GI consulted, on 07/13 H/H dropped from 8.7/27 to 7.4/22 and anticoagulation discontinued. This morning I spoke to his who still wishes for the patient to remain a full code despite update with continued use of vasopressor (vasopressin), current ventilatory support (CMV 500/25/14/0.60) and recent development of rectal bleeding. Patient's family requests an update from [facility] and GI. Cardio changed amio from PO to IV given elevated HR 07/15: Today the patient received a total of 5 units of PRBC and is still having bleeding through his rectal tube. CTA abdomen/pelvis is pending, patient remains on Levophed, fentanyl, propofol, vasopressin and received hemodialysis today. He was also hyperkalemic today to 6 and he received insulin and D50. Extensive conversation with family conducted by [facility] and hospitalist and his and 2 daughters did visit him today at the bedside. 07/16: Continues with full ventilatory support. FMS still inplace with some loose bloody stool. Still on multiple pressors, Bilateral swollen and generalized anascara. Monitor H/H and transfuse as needed. Monitor K level. Discussed with family at bedside yesterday. 07/17: Continue supportive care, transfusion blood possible in am with HD, continue abx, very poor prognosis, blood pressure still labile. Discussed with nurse at bedside 07/18: CTA abdomen/pelvis completed, antibiotics changed to Zosyn per infectious disease, remains on mechanical ventilation 450/25/12/0.55 continue amiodarone drip for 24 more hours, blood culture grew Enterococcus. Remains sedated on propofol and fentanyl. Not on vasopressor support today 07/19: No acute events reported overnight, remains sedated with fentanyl and propofol and off vasopressor therapy today. 07/20: s/p debridement with surgery today, remains on fentanyl, propofol, Levophed and current vent settings 450/25/10/0.45. Patient will be transferred to a bariatric bed once available. 07/21: Continue current management, wean ventilator as tolerated, IV antibiotics deescalated to ampicillin. Per infectious disease no need to exchange/remove lines unless repeat blood cultures turn positive. The time my examination patient was sedated on fentanyl and propofol and remains off vasopressor support. 07/22: At the time my examination patient is sedated on fentanyl and propofol and remains off vasopressor support, repeat COVID-19 PCR negative. Patient remains on ampicillin. H/H remained stable and GI has signed off. Mechanical ventilation weaning as tolerated. 07/23. He remains sedated on fentanyl and propofol. On mechanical ventilation. On levophed. repeat COVID-19 PCR negative. Patient remains on ampicillin. H/H remained stable and GI has signed off. 07/24. He remains sedated and on mechanical ventilation. On levophed. repeat COVID-19 PCR negative. On ampicillin. ID recs appreciated. Labs reviewed 07/25: Patient remains sedated on fentanyl and Diprivan and remains on mechanical ventilation. Repeat CXR and still has leukocytosis. Patient is n.p.o. for trach and PEG with surgery. 07/26: Remains sedated on fentanyl and propofol. Remains on vasopressor support with Levophed. Current vent settings CMV 450/20/8/0.40. Patient is scheduled for PEG/trach with surgery. No acute events reported overnight. Hospitalist Physical - Physical exam Narrative exam: General appearance: Present: mild distress, well-nourished - EENT ENT: ulcerations - Respiratory Respiratory effort: normal Respiratory: bilateral: diminished - Cardiovascular Rhythm: regular Heart Sounds: Present: S1 & S2. Absent: systolic murmur, diastolic murmur - Extremities Extremities: no ischemia, pulses intact, pulses symmetrical, normal color Peripheral Pulses: within normal limits - Abdominal General gastrointestinal: soft, non-tender, non-distended, normal bowel sounds - Integumentary Integumentary: Present: dry - Psychiatric Psychiatric: other (sedated) - Neurologic Neurologic: other (sedated) - Constitutional Vitals: Temp Pulse Resp BP Pulse Ox 98.9 F 106 H 19 112/49 97 07/26/20 13:15 07/26/20 14:15 07/26/20 14:00 07/26/20 14:15 07/26/20 14:00 General appearance: Present: mild distress, well-nourished HEART Score - HEART Score Troponin: Troponin T < 0.010 ng/mL (0.00-0.029) 06/17/20 12:33 Results - Labs CBC & Chem 7: 07/26/20 Unknown 07/26/20 08:46 Labs: Laboratory Last Values WBC 24.6 K/mm3 (4.5-11.0) H 07/26/20 Unknown RBC 2.68 M/mm3 (3.65-5.03) L 07/26/20 Unknown Hgb 8.3 gm/dl (11.8-15.2) L 07/26/20 Unknown Hct 24.7 % (35.5-45.6) L 07/26/20 Unknown MCV 92 fl (84-94) 07/26/20 Unknown MCH 31 pg (28-32) 07/26/20 Unknown MCHC 33 % (32-34) 07/26/20 Unknown RDW 16.3 % (13.2-15.2) H 07/26/20 Unknown Plt Count 178 K/mm3 (140-440) 07/26/20 Unknown Lymph % (Auto) 5.6 % (13.4-35.0) L 07/12/20 03:40 [place] % (Auto) 7.4 % (0.0-7.3) H 07/12/20 03:40 Eos % (Auto) 2.8 % (0.0-4.3) 07/12/20 03:40 Baso % (Auto) 0.3 % (0.0-1.8) 07/12/20 03:40 Lymph # (Auto) 1.4 K/mm3 (1.2-5.4) 07/12/20 03:40 [place] # (Auto) 1.8 K/mm3 (0.0-0.8) H 07/12/20 03:40 Eos # (Auto) 0.7 K/mm3 (0.0-0.4) H 07/12/20 03:40 Baso # (Auto) 0.1 K/mm3 (0.0-0.1) 07/12/20 03:40 Add Manual Diff Complete 07/26/20 Unknown Total Counted 100 07/26/20 Unknown Seg Neutrophils % Client Services Specialist 07/17/20 15:25 Seg Neuts % (Manual) 82.0 % (40.0-70.0) H 07/26/20 Unknown Band Neutrophils % 1.0 % 07/26/20 Unknown Lymphocytes % (Manual) 5.0 % (13.4-35.0) L 07/26/20 Unknown Reactive Lymphs % (Man) 1.0 % 06/23/20 04:00 Monocytes % (Manual) 8.0 % (0.0-7.3) H 07/26/20 Unknown Eosinophils % (Manual) 3.0 % (0.0-4.3) 07/26/20 Unknown Basophils % (Manual) 3.0 % (0.0-1.8) H 07/25/20 05:39 Metamyelocytes % 1.0 % 07/26/20 Unknown Myelocytes % 1.0 % 07/25/20 05:39 Promyelocytes % 0 % 07/17/20 15:25 Nucleated RBC % Not Reportable 07/26/20 Unknown Seg Neutrophils # 20.4 K/mm3 (1.8-7.7) H 07/12/20 03:40 Seg Neutrophils # Man 20.2 K/mm3 (1.8-7.7) H 07/26/20 Unknown Band Neutrophils # 0.2 K/mm3 07/26/20 Unknown Lymphocytes # (Manual) 1.2 K/mm3 (1.2-5.4) 07/26/20 Unknown Abs React Lymphs (Man) 0.0 K/mm3 07/26/20 Unknown Monocytes # (Manual) 2.0 K/mm3 (0.0-0.8) H 07/26/20 Unknown Eosinophils # (Manual) 0.7 K/mm3 (0.0-0.4) H 07/26/20 Unknown Basophils # (Manual) 0.0 K/mm3 (0.0-0.1) 07/26/20 Unknown Metamyelocytes # 0.2 K/mm3 07/26/20 Unknown Myelocytes # 0.0 K/mm3 07/26/20 Unknown Promyelocytes # 0.0 K/mm3 07/26/20 Unknown Blast Cells # 0.0 K/mm3 07/26/20 Unknown Pathologist Review 07/17/20 15:25 WBC Morphology Not Reportable 07/26/20 Unknown Hypersegmented Neuts Not Reportable 07/26/20 Unknown Hyposegmented Neuts Not Reportable 07/26/20 Unknown Hypogranular Neuts Not Reportable 07/26/20 Unknown Smudge Cells Not Reportable 07/26/20 Unknown Toxic Granulation Not Reportable 07/26/20 Unknown Toxic Vacuolation Not Reportable 07/26/20 Unknown Dohle Bodies Not Reportable 07/26/20 Unknown Pelger-Huet Anomaly Not Reportable 07/26/20 Unknown Carlito Rods Not Reportable 07/26/20 Unknown Platelet Estimate Consistent w auto 07/26/20 Unknown Clumped Platelets Not Reportable 07/26/20 Unknown Plt Clumps, EDTA Not Reportable 07/26/20 Unknown Large Platelets Not Reportable 07/26/20 Unknown Giant Platelets Not Reportable 07/26/20 Unknown Platelet Satelliting Not Reportable 07/26/20 Unknown Plt Morphology Comment Not Reportable 07/26/20 Unknown RBC Morphology Not Reportable 07/26/20 Unknown Dimorphic RBCs Not Reportable 07/26/20 Unknown Polychromasia Not Reportable 07/26/20 Unknown Hypochromasia 1+ 07/26/20 Unknown Poikilocytosis Not Reportable 07/26/20 Unknown Anisocytosis Few 07/26/20 Unknown Microcytosis Not Reportable 07/26/20 Unknown Macrocytosis Not Reportable 07/26/20 Unknown Spherocytes Not Reportable 07/26/20 Unknown Pappenheimer Bodies Not Reportable 07/26/20 Unknown Sickle Cells Not Reportable 07/26/20 Unknown Target Cells Not Reportable 07/26/20 Unknown Tear Drop Cells Not Reportable 07/26/20 Unknown Ovalocytes Not Reportable 07/26/20 Unknown Stomatocytes Rare 07/10/20 03:55 Helmet Cells Not Reportable 07/26/20 Unknown [place] Bodies Not Reportable 07/26/20 Unknown [place] Rings Not Reportable 07/26/20 Unknown Livier Cells Not Reportable 07/26/20 Unknown Bite Cells Not Reportable 07/26/20 Unknown Crenated Cell Not Reportable 07/26/20 Unknown Elliptocytes Not Reportable 07/26/20 Unknown Acanthocytes (Spur) Not Reportable 07/26/20 Unknown Rouleaux Not Reportable 07/26/20 Unknown Hemoglobin C Crystals Not Reportable 07/26/20 Unknown Schistocytes Not Reportable 07/26/20 Unknown Malaria parasites Not Reportable 07/26/20 Unknown Victoriano Bodies Not Reportable 07/26/20 Unknown Hem Pathologist Commnt No 07/26/20 Unknown PT 15.3 Sec. (12.2-14.9) H 07/24/20 20:40 INR 1.21 (0.87-1.13) H 07/24/20 20:40 APTT 36.1 Sec. (24.2-36.6) 07/24/20 20:40 Fibrinogen 419 mg/dl (211-480) 07/15/20 08:21 D-Dimer 6608.00 ng/mlDDU (0-234) H 07/03/20 14:50 Heparin Anti-Xa Level < 0.10 U.I./ml (0.3-0.7) L 06/26/20 01:30 ABG pH 7.355 (7.320-7.450) 07/23/20 04:56 POC ABG pCO2 46.9 mmHg (32.0-48.0) 07/23/20 04:56 ABG pCO2 56.4 mm Hg 07/05/20 04:30 POC ABG pO2 75.7 mmHg (83-108) L 07/23/20 04:56 ABG pO2 151.9 mm Hg (80.0-90.0) H 07/05/20 04:30 POC ABG HCO3 25.6 07/23/20 04:56 ABG HCO3 26.8 mmol/L (20.0-26.0) H 07/05/20 04:30 ABG O2 Saturation 94.8 (0-100) 07/23/20 04:56 ABG O2 Content 5.0 (0.0-44) 07/04/20 05:20 POC ABG Base Excess -0.1 07/23/20 04:56 ABG Base Excess 0.1 mmol/L (-2.0-3.0) 07/05/20 04:30 ABG Hemoglobin 9.3 (12.0-17.5) L 07/23/20 04:56 ABG Oxyhemoglobin 91.7 (94-98) L 07/22/20 04:11 ABG Carboxyhemoglobin 1.7 % (0.0-5.0) 07/05/20 04:30 ABG Methemoglobin 0.3 (0.0-1.5) 07/22/20 04:11 ABG Sodium 139.7 mmol/L (136.0-145.0) 07/23/20 04:56 ABG Potassium 3.1 mmol/L (3.40-4.50) L 07/23/20 04:56 ABG Chloride 108.0 mmol/L (98-107) H 07/23/20 04:56 ABG Glucose 101 mg/dL (65-95) H 07/23/20 04:56 Oxyhemoglobin 96.5 % (95.0-99.0) 07/05/20 04:30 Carboxyhemoglobin 1.3 (0.5-1.5) 07/22/20 04:11 FiO2 50 07/20/20 06:00 FiO2 % 40 07/23/20 04:56 Sodium 139 mmol/L (137-145) 07/26/20 08:46 Potassium 3.7 mmol/L (3.6-5.0) 07/26/20 08:46 Chloride 101.4 mmol/L (98-107) 07/26/20 08:46 Carbon Dioxide 31 mmol/L (22-30) H 07/26/20 08:46 Anion Gap 10 mmol/L 07/26/20 08:46 BUN 37 mg/dL (9-20) H 07/26/20 08:46 Creatinine 2.2 mg/dL (0.8-1.3) H 07/26/20 08:46 Estimated GFR 37 ml/min 07/26/20 08:46 BUN/Creatinine Ratio 17 % 07/26/20 08:46 Glucose 89 mg/dL (75-100) 07/26/20 08:46 POC Glucose 71 mg/dL (70-105) 07/26/20 11:30 Lactic Acid 0.90 mmol/L (0.7-2.0) 07/23/20 Unknown Calcium 8.2 mg/dL (8.4-10.2) L 07/26/20 08:46 Phosphorus 9.40 mg/dL (2.5-4.5) H 06/30/20 03:50 Magnesium 2.70 mg/dL (1.7-2.3) H 06/18/20 20:33 Ferritin 1171.0 ng/mL (30.0-300.0) H 07/03/20 14:50 Total Bilirubin 0.20 mg/dL (0.1-1.2) 07/24/20 06:40 Direct Bilirubin 0.5 mg/dL (0-0.2) H 07/05/20 08:21 Indirect Bilirubin 0.1 mg/dL 07/05/20 08:21 AST 46 units/L (5-40) H 07/24/20 06:40 ALT 74 units/L (7-56) H 07/24/20 06:40 Alkaline Phosphatase 180 units/L (35-129) H 07/24/20 06:40 Lactate Dehydrogenase 525 units/L (91-180) H 07/03/20 14:50 Total Creatine Kinase 618 units/L (55-170) H 06/29/20 Unknown Troponin T < 0.010 ng/mL (0.00-0.029) 06/17/20 12:33 C-Reactive Protein 31.50 mg/dL (0.00-1.30) H 07/03/20 14:50 Total Protein 4.6 g/dL (6.3-8.2) L 07/24/20 06:40 Albumin 2.0 g/dL (3.9-5) L 07/24/20 06:40 Albumin/Globulin Ratio 0.8 % 07/24/20 06:40 Triglycerides 166 mg/dL (2-149) H 07/26/20 08:46 Procalcitonin 6.05 ng/mL (<0.15) 07/13/20 06:59 Arterial Blood Glucose 101 mg/dL (65-95) H 07/23/20 04:56 Arterial Blood Ionized Calcium 5.3 mg/dL (4.6-5.3) 07/23/20 04:56 Urine Color Yellow (Yellow) 06/17/20 15:57 Urine Turbidity Clear (Clear) 06/17/20 15:57 Urine pH 6.0 (5.0-7.0) 06/17/20 15:57 Ur Specific [place] 1.019 (1.003-1.030) 06/17/20 15:57 Urine Protein 30 mg/dl mg/dL (Negative) 06/17/20 15:57 Urine Glucose (UA) Neg mg/dL (Negative) 06/17/20 15:57 Urine Ketones Neg mg/dL (Negative) 06/17/20 15:57 Urine Blood Sm (Negative) 06/17/20 15:57 Urine Nitrite Neg (Negative) 06/17/20 15:57 Ur Reducing Substances Not Reportable 06/17/20 15:57 Urine Bilirubin Neg (Negative) 06/17/20 15:57 Urine Ictotest Not Reportable 06/17/20 15:57 Urine Urobilinogen < 2.0 mg/dL (<2.0) 06/17/20 15:57 Ur Leukocyte Esterase Neg (Negative) 06/17/20 15:57 Urine WBC (Auto) 1.0 /HPF (0.0-6.0) 06/17/20 15:57 Urine RBC (Auto) 2.0 /HPF (0.0-6.0) 06/17/20 15:57 Urine Mucus Few /HPF 06/17/20 15:57 Urine Creatinine 192.4 mg/dL (0.1-20.0) H 06/18/20 15:00 Urine Sodium 28 mmol/L 06/18/20 15:00 Urine Chloride 31.1 mmolL (110-250) L 06/18/20 15:00 Nasal Screen MRSA (PCR) Negative (Negative) 06/19/20 10:38 Vancomycin Trough 22.7 ug/mL (5.0-20.0) H 06/20/20 08:25 Random Vancomycin 13.5 ug/mL (0-40.0) 07/16/20 07:17 Coronavirus (PCR) Negative (Negative) 07/22/20 Unknown Hepatitis A IgM Ab Non-reactive (NonReactive) 06/22/20 17:00 Hep Bs Antigen Non-reactive (Negative) 06/22/20 17:00 Hep B Core IgM Ab Non-reactive (NonReactive) 06/22/20 17:00 Hepatitis C Antibody Non-reactive (NonReactive) 06/22/20 17:00 SARS-CoV-2 IgG Ab Nonreactive (NonReactive) 07/04/20 05:20 Blood Type A POSITIVE 07/24/20 20:38 Antibody Screen Negative 07/24/20 20:38 Crossmatch See Detail 07/24/20 20:38 - Diagnostic Impressions Diagnostic Impressions: Echocardiogram 06/29/20 06:00 Transthoracic Echocardiogram Indication: A-fib BP: 105/47 HR: 99 Conclusions *The study is technically very difficult and limited due to poor acoustic windows. *Global left ventricular wall motion and contractility are within normal limits. *The estimated ejection fraction is 55-60%. *There is no pericardial effusion. Findings Procedure Info: The study quality is technically difficult. The study is technically limited due to poor acoustic windows. Left Ventricle: Global left ventricular wall motion and contractility are within normal limits. Global left ventricular systolic function is normal. The estimated ejection fraction is 55-60%. Left Atrium: The left atrium is not well visualized. Right Ventricle: The right ventricle is not well visualized. Right Atrium: The right atrium is not well visualized. Aortic Valve: The aortic valve is not well visualized. Mitral Valve: The mitral valve is not well visualized. Tricuspid Valve: The tricuspid valve is not well visualized. Pulmonic Valve: The pulmonic valve is not well visualized. Pericardium: There is no pericardial effusion. Venous: There is no change in the dimension of the inferior vena cava with respiration consistent with markedly increased right atrial pressure. [place]/IV: Voiding Method Incontinent Active Medications - Current Medications Current Medications: Generic Name Dose Route Start Last Admin Trade Name Freq PRN Reason Stop Dose Admin Acetaminophen 650 mg 06/17/20 14:17 07/03/20 09:16 Acetaminophen 325 Mg Tab PO 650 mg Q4H PRN Administration Pain MILD(1-3)/Fever >100.5/ROBERTS Albuterol 2.5 mg 07/19/20 12:15 Albuterol 2.5 Mg/3 Ml Nebu IH Q6HRT PRN Shortness Of Breath Amiodarone HCl 200 mg 07/19/20 14:00 07/26/20 13:51 Amiodarone 200 Mg Tab PO Not Given BID CONNOR Lipase/Protease/Amylase 1 each 06/19/20 12:15 Lipase 10,500/Protease 25,000/Amylase 43,750 (Units) Dr Cap FEEDTUBE PRN PRN For Clogged Feeding Tube Ascorbic Acid 250 mg 06/17/20 22:00 07/26/20 13:51 Ascorbic Acid 250 Mg Tab PO Not Given BID CONNOR Cholecalciferol 1,000 unit 06/18/20 10:00 07/26/20 13:51 Cholecalciferol (Vit D3) 1000 Unit (25 Mcg) Tab PO Not Given DAILY CONNOR Dextrose 50 gm 07/25/20 17:30 Dextrose 50% In Water (25gm) 50 Ml Vial IV Q30MIN PRN Hypoglycemia Protocol Docusate Sodium 100 mg 06/23/20 15:00 07/26/20 13:51 Docusate Sodium 100 Mg/10 Ml Oral Liqd FEEDTUBE Not Given BID CONNOR Fentanyl 50 mcg 06/18/20 01:02 07/09/20 00:20 Fentanyl 100 Mcg/2 Ml Inj IV 50 mcg Q10MIN PRN Administration ANALGESIA Heparin Sodium (Porcine) 5,000 unit 06/22/20 12:53 06/30/20 13:36 Heparin 10,000 Unit/1 Ml Vial IV 5,000 unit PAM PRN Administration hemodialysis Hydrophilic Ointment 1 applic 06/17/20 22:52 07/12/20 20:22 Lip Therapy Vaseline TP 1 applic Q2HR PRN Administration Dry Lips Propofol 1,000 mg in 100 mls @ 3.402 mls/hr 06/18/20 01:00 07/26/20 06:11 Diprivan 10 Mg/Ml IV 15 mcg/kg/min TITR CONNOR 10.206 mls/hr Administration Protocol 5 MCG/KG/MIN Fentanyl Citrate 2,000 mcg in 100 mls @ 8 mls/hr 06/18/20 02:00 07/26/20 13:45 Fentanyl Drip Premix IV 2 mcg/kg/hr TITR CONNOR 16 mls/hr Administration Protocol 1 MCG/KG/HR Norepinephrine 4 mg in 250 mls @ 7.5 mls/hr 07/08/20 02:06 07/26/20 07:56 Levophed Drip 4 Mg/Ns 250 Ml IV 4 mcg/min TITR CONNOR 15 mls/hr Titration Protocol 2 MCG/MIN Vasopressin 20 unit/ Sodium 101 mls @ 9.09 mls/hr 07/11/20 11:00 07/18/20 15:36 Chloride IV 0 units/min TITR CONNOR 0 mls/hr Titration Protocol 0.03 UNITS/MIN Ampicillin Sodium 2 gm in 100 mls @ 100 mls/hr 07/21/20 12:00 07/26/20 13:44 Ampicillin/Ns 2 Gm/100 Ml IV 08/02/20 12:59 100 mls/hr Q12H [facility] Administration Protocol Sodium Chloride 100 mls @ 999 mls/hr 07/26/20 10:00 Nacl 0.9% IV PAM PRN Hypotension Insulin Human Regular 0 units 06/18/20 12:00 07/26/20 14:04 Insulin Regular, Human 100 Units/1 Ml SUB-Q Not Given Q6HR [facility] Protocol Multi-Ingred Cream/Lotion/Oil/Oint 1 applic 06/17/20 22:52 07/12/20 20:22 Mineral Oil/Petrolatum, White Ophth Oint 3.5 Gm OU 1 applic Q4HR PRN Administration Dry Eye(s) Ondansetron HCl 4 mg 06/17/20 14:17 Ondansetron 4 Mg/2 Ml Inj IV Q8H PRN Nausea And Vomiting Pantoprazole Sodium 40 mg 07/16/20 22:00 07/26/20 13:46 Pantoprazole 40 Mg Inj IV 40 mg BID CONNRO Administration Polyethylene Glycol 17 gm 06/23/20 15:00 07/26/20 13:51 Polyethylene Glycol 3350 17 Gm Powder PO Not Given QDAY [facility] Quetiapine Fumarate 200 mg 06/28/20 13:00 07/26/20 13:51 Quetiapine 200 Mg Tab PO Not Given BID CONNOR Simple Syrup 15 ml 06/19/20 12:15 07/26/20 13:55 Simple Syrup 15 Ml FEEDTUBE 15 ml PRN PRN Administration Hypoglycemia Simple Syrup 30 ml 06/19/20 12:15 07/19/20 06:04 Simple Syrup 15 Ml FEEDTUBE 30 ml PRN PRN Administration Hypoglycemia Sodium Bicarbonate 325 mg 06/19/20 12:15 07/11/20 20:00 Sodium Bicarbonate 325 Mg Tab FEEDTUBE 325 mg PRN PRN Administration For Clogged Feeding Tube Sodium Chloride 10 ml 06/17/20 22:00 07/26/20 13:51 Sodium Chloride 0.9% 10 Ml Flush Syringe IV Not Given BID CONNOR Sodium Chloride 10 ml 06/17/20 14:17 Sodium Chloride 0.9% 10 Ml Flush Syringe IV PRN PRN LINE FLUSH Sodium Hypochlorite 1 applic 07/20/20 10:00 07/26/20 13:45 Sodium Hypochlorite, Dakin's 1/2 Strength (0.25%) 473 Ml Topical Soln TP 1 applicatio BID CONNOR Administration Zinc Sulfate 220 mg 06/17/20 22:00 07/26/20 13:51 Zinc Sulfate 220 Mg Cap PO Not Given BID CONNOR Nutrition/Malnutrition Assess - Dietary Evaluation Nutrition/Malnutrition Findings: Nutrition Notes Start: 06/18/20 10 :28 Freq: Status: Active Protocol: Document 07/26/20 12:56 AL (Rec: 07/26/20 13:06 AL [id number]) Co-Sign 07/26/20 12:56 LP Nutrition Notes Initial or Follow up Reassessment Current Diagnosis Acute Kidney Injury,Sepsis, Respiratory Failure Other Pertinent Diagnosis COVID-19 (+), pneu, on HD. Current Diet Nepro 1.8 at 50 ml/hr Labs/Tests BUN 37 Cr 2.2 Pertinent Medications Levophed Propofol 10.2 ml/hr (269 kcal) Height 6 ft Weight 169.5 kg [place] Body Weight (kg) 80.90 BMI 50.6 Weight change and time frame Wt change of 15.6 kg (9.2%) noted. Pt on HD Weight Status Morbidly Obese Subjective/Other Information F/U for TF tolerance, wounds, and vent status. Pt has NPO order and TF was not running at time of visit. Pt still on vent and is getting a trach and PEG placed soon. Percent of energy/protein needs met: 0%/0% Burn Absent Trauma Absent GI Symptoms Other Skin Integrity/Comment Unstageable Sacral Pressure Ulcer Current % PO Negligible Minimum of two criteria No physical signs of malnutrition #3 Nutrition Diagnosis Increased nutrient needs ( specify in comment below) Comments: Protein Diagnosis Progress(for reassessment Continues documentation) #1 Nutrition Diagnosis Inadequate oral intake Diagnosis Progress(for reassessment Continues documentation) Is patient on ventilator? Yes Is Patient Ambulatory and/or Out of Bed No REE-([facility]-confined to bed) 3043.524 Kcal/Kg value to use for calculation 13 Approximate Energy Requirements Using 2204 kcal/Kg Calculation Used for Recommendations Kcal/kg Additional Notes Protein needs up to >2 g/kg IBW: 162 g Fluid needs: 1,000 ml + output Nutrition Intervention Change Diet Order: TF Nutrition Support: Nepro 1.8 at 50 ml/hr Flush 215 ml q4h Kcal 2,160 Protein (gm) 97 Fluid (mL) 872 Goal #1 Tolerate TF at goal rate Goal #2 Meet energy and protein needs as best as possible Goal #3 Wound healing. Anticipated Discharge Needs: Unable to determine at the time. Follow-Up By: 07/28/20 Additional Comments F/U for trach and PEG placement, TF tolerance.
--- NOTE | 2020-07-26 14:32 | Progress Note ---
Assessment and Plan Cultures: SARS CoV2 PCR: Positive 06/17/2020 blood culture: No growth 06/17/2020 sputum culture: No growth 07/15/2020 blood culture: No growth 07/15/2020 fungal blood culture: Enterococcus faecalis 07/15/2020 tracheal aspirate culture: Usual respiratory otf 07/18/2020 blood culture: no growth A/P: 59-year-old male with obesity, obesity hypoventilation syndrome: #Severe sepsis with septic shock, ?also component of hemorrhagic shock. On and off pressors. #Enterococcus bacteremia: 07/15/2020 fungal blood culture: grew Enterococcus. ?gut translocation. Interestingly other blood cultures from that day were negative. CT abdomen showed some colitis. Since repeat blood cultures negative, will finish 14 days of abx. #Anemia, GI bleed: GI on board. #Critical COVID-19 pneumonia: s/p abx, steroids and remdesivir. #Acute hypoxic respiratory failure: on the vent. Also with pneumomediastinum, subcutaneous emphysema. #Leukemoid reaction: likely multifactorial. #GIRISH: remains on HD per nephrology. Renally dose abx. #Sacral decubitus: s/p debridement by Dr. Kirk on 07/20/2020. Recs: -pressor requirements dropping, continue IV Ampicillin, renally dosed, complete 14 days ending 08/01/2020 -repeat blood cultures have been negative, however, if pressor requirements persist or worsen, exchange out lines -monitor fever and WBC G. Kassy Finney MD [facility] ([facility]) O: [phone] F: [phone] Subjective Date of service: 07/26/20 Principal diagnosis: ARF; Septic Shock; COVID-19 PNA; Atrial fibrillation; Obesity Interval history: No acute changes Objective - Exam Narrative Exam: Constitutional: sedated, intubated, on the vent Head, Ears, Nose: Normocephalic, atraumatic. External ears, nose normal Eyes: Conjunctivae/corneas clear. No icterus. No ptosis. Neck: intubated Oral: intubated Cardiovascular: S1, S2 + Respiratory: AE fair bilaterally and equal GI: Soft, bowel sounds + Musculoskeletal: No pedal edema, no cyanosis. Skin: No rash or abscess Hem/Lymphatic: No palpable cervical or supraclavicular nodes. Psych: no agitation Neurological: sedated, intubated, on the vent, exam limited - Constitutional Vitals: Vital Signs Temp Pulse Resp BP Pulse Ox 98.9 F 111 H 18 124/53 100 07/26/20 13:15 07/26/20 13:45 07/26/20 13:15 07/26/20 13:45 07/26/20 12:24 Temperature -Last 24 Hours Temperature 98.9 F Temperature 97.9 F Temperature 97.6 F Temperature 98.8 F Temperature 98.4 F Temperature 98.7 F Temperature 98.4 F - Labs CBC & Chem 7: 07/27/20 04:00 07/26/20 08:46 Labs: Abnormal lab results 07/25/20 07/26/20 07/26/20 Range/Units 17:22 08:46 08:46 WBC (4.5-11.0) K/mm3 RBC (3.65-5.03) M/mm3 Hgb (11.8-15.2) gm/dl Hct (35.5-45.6) % RDW (13.2-15.2) % Seg Neuts % (Manual) (40.0-70.0) % Lymphocytes % (Manual) (13.4-35.0) % Monocytes % (Manual) (0.0-7.3) % Seg Neutrophils # Man (1.8-7.7) K/mm3 Monocytes # (Manual) (0.0-0.8) K/mm3 Eosinophils # (Manual) (0.0-0.4) K/mm3 Carbon Dioxide 31 H (22-30) mmol/L BUN 37 H (9-20) mg/dL Creatinine 2.2 H (0.8-1.3) mg/dL POC Glucose 65 L (70-105) mg/dL Calcium 8.2 L (8.4-10.2) mg/dL Triglycerides 166 H (2-149) mg/dL 07/26/20 Range/Units Unknown WBC 24.6 H (4.5-11.0) K/mm3 RBC 2.68 L (3.65-5.03) M/mm3 Hgb 8.3 L (11.8-15.2) gm/dl Hct 24.7 L (35.5-45.6) % RDW 16.3 H (13.2-15.2) % Seg Neuts % (Manual) 82.0 H (40.0-70.0) % Lymphocytes % (Manual) 5.0 L (13.4-35.0) % Monocytes % (Manual) 8.0 H (0.0-7.3) % Seg Neutrophils # Man 20.2 H (1.8-7.7) K/mm3 Monocytes # (Manual) 2.0 H (0.0-0.8) K/mm3 Eosinophils # (Manual) 0.7 H (0.0-0.4) K/mm3 Carbon Dioxide (22-30) mmol/L BUN (9-20) mg/dL Creatinine (0.8-1.3) mg/dL POC Glucose (70-105) mg/dL Calcium (8.4-10.2) mg/dL Triglycerides (2-149) mg/dL
[2020-07-26] MEDS: NORepinephrine/NS 4 MG-250 ML 4 MG/250 ML BAG IV SCH (18:38)
[2020-07-26] MEDS ORDERED: fentaNYL 100 MCG/2 ML INJ ONE (18:42)
[2020-07-26] MEDS ORDERED: ROCURONIUM 50 MG/5 ML INJ IV ONE ×2 (18:42→20:42)
[2020-07-26] MEDS ORDERED: SODIUM CHLORIDE 0.9% 1000 ML 1,000 ML ONE (19:21)
[2020-07-26] MEDS ORDERED: PHENYLEPHRINE/NS 1,000 MCG/10 ML SYRINGE (OR USE) IV ONE (19:21)
[2020-07-26] MEDS ORDERED: ceFAZolin 1 GM VIAL ONE (19:59)
--- NOTE | 2020-07-26 20:36 | Anesthesia Day of Surgery ---
Anesthesia Day of Surgery - Day of Surgery Patient Examined: Yes Patient H&P Reviewed: Yes Patient is NPO: Yes
--- NOTE | 2020-07-26 20:42 | Procedure Note ---
Date of procedure: 07/26/20 Pre-op diagnosis: Respiratory failure Post-op diagnosis: same Procedure: 1) Open tracheostomy 2) PEG Description of procedure: Pt was placed supine on the OR table. GETA was administered. NG tube was removed. Bite block was placed between pt's incisors . Endoscope was introduced into the oropharynx and the esophagus intubated under direct vision. The scope was advanced into the pt's stomach. The stomach was maximally inflated. An appropriate location for the PEG tube was selected. LUQ was then prepped and draped. Skin and SQ tissue at the proposed PEG site were infiltrated with 4 ml of 1% Lidocaine. A small skin incision was made. The sna re was passed down the scope. The introducer needle was passed through the LUQ wound and then into the stomach on the first pass. Guide wire was advanced into the stomach and the guide wire grasped with the snare. The scope and guide wire were removed via the pt's oropharynx. The guide wire was attached to the PEG tubing. External traction was applied to the guide wire via the LUQ until the i nternal bolster was snug up against the gastric and abdominal grijalva. The external bolster was advanced and positioned at 4 cm. The tubing was cut to an appropriate length and the tubing clamp and plug were positioned/placed. Repeat gastroscopy revealed the internal bolster to be in good position with no bleeding identified from the gastric puncture site. Betadine ointment and a slitted gauze were placed under the external bolster. The neck was then prepped and draped. The proposed collar incision was infiltrated with 10 ml of 0.5% Marcaine with epinephrine. Skin was incised with the scalpel. Hemostasis was obtained with the Bovie. Platysma was transected with the Bovie. Deep cervical fascia was then divided in the midline and the strap muscles retracted laterally. The superior thyroid isthmus was divided in the midline with the Bovie to better expose the proximal tracheal rings. The 2nd tracheal ring was identified. Anesthesia then lowered the pt's FIO2 as much as could be tolerated. An "H" type incision was made in the 2nd tracheal ring. A #8 cuffed, Shiley tracheostomy tube was inserted into the trachea after retracting the pt's ET tube. The tracheostomy cuff was inflated. Ventilation was continued with minimal interruption via the pt's tracheostomy tube. Strap muscles were approximated in the midline with interrupted sutures of 3-0 Vicryl. Platysma was approximated with a running 3-0 Vicryl. Skin was approximated with interrupted, vertical mattress sutures of 3-0 Nylon. A slitted gauze was placed under the tracheostomy cuff. The cuff was then secured around the pt's neck with a Velcro strap. Pt tolerated both procedures well. Pt was taken immediately back to the ICU in stable condition. Anesthesia: GETA Surgeon: MANE AKBAR Estimated blood loss: minimal Pathology: none Condition: stable Disposition: ICU
--- NOTE | 2020-07-26 21:17 | Post Anesthesia Evaluation ---
- Post Anesthesia Evaluation Patient Participated: No (sedated) Airway Patent: Yes Stable Respiratory Function: Yes Nausea/Vomiting: No (unable to assess) Temp > 96.8F: Yes Pain Manageable: Yes (unable to asses) Adequeate Hydration: Yes Anesthesia Complications: No Block Receding Appropriately: Not Applicable Patient on Ventilator: Yes (returned to preop vent settings by RT) Other Comments: RT placed patient on vent. VS stable on norepi gtt 6mcg/min, propofol and fentanyl gtt for sedation. Report given to [employer] CAT OPERATOR.
[2020-07-26] MEDS ORDERED: DEXTROSE 50% IN WATER (25GM) 50 ML SYRINGE IV ONE (21:46)
[2020-07-26] MEDS: DEXTROSE 50% IN WATER (25GM) 50 ML SYRINGE IV PRN (22:17)
[2020-07-27] MEDS: INSULIN REGULAR, HUMAN 100 UNITS/1 ML SUB-Q SCH ×4 (00:14→18:54)
[2020-07-27] MEDS: AMPICILLIN/NS 2 GM/100 ML 2 GM/100 ML BAG IV SCH ×2 (00:19→12:49)
[2020-07-27] MEDS: fentaNYL DRIP Premix 2,000 MCG/100 ML BAG IV SCH ×4 (04:32→21:49)
[2020-07-27 05:41] LABS: Hematocrit 25.3 % (35.5-45.6); Hemoglobin 8.3 gm/dl (11.8-15.2); Mean Corpuscular HGB Conc 33 % (32-34); Mean Corpuscular Volume 93 fl (84-94); Platelet Count 202 K/mm3 (140-440); Red Blood Count 2.74 M/mm3 (3.65-5.03); Red Cell Distribution Width 17.2 % (13.2-15.2)
[2020-07-27 06:41] LABS: Total Cells Counted 100
[2020-07-27 06:42] LABS: Hypochromasia 1+; Stomatocytes Few
[2020-07-27] MEDS: DEXTROSE 50% IN WATER (25GM) 50 ML SYRINGE IV PRN (06:42)
[2020-07-27 06:43] LABS: Platelet Estimate Consistent w Auto
[2020-07-27] MEDS ORDERED: LIPASE 10,500/PROTEASE 25,000/AMYLASE 43,750 (UNITS) DR CAP FEEDTUBE PRN (09:48)
[2020-07-27] MEDS ORDERED: SODIUM BICARBONATE 325 MG TAB FEEDTUBE PRN (09:48)
[2020-07-27] MEDS ORDERED: SIMPLE SYRUP 15 ML FEEDTUBE PRN ×2 (09:48)
--- NOTE | 2020-07-27 10:41 | Progress Note ---
Assessment and Plan Pt s/p trach and PEG yesterday. Cont present cardiac management. The patient has been seen in conjunction with Dr. Singh who agrees with the assessment and plan of care. - Patient Problems (1) Acute respiratory failure with hypoxia Current Visit: Yes Status: Acute (2) Pneumonia due to COVID-19 virus Current Visit: Yes Status: Acute (3) Sepsis Current Visit: Yes Status: Acute Qualifiers: Severe sepsis acute organ dysfunction type: acute respiratory failure Severe sepsis shock status: with septic shock (4) Paroxysmal atrial fibrillation with rapid ventricular response Current Visit: Yes Status: Acute (5) Acute renal failure Current Visit: Yes Status: Acute (6) Elevated LFTs Current Visit: Yes Status: Acute (7) Anemia Current Visit: Yes Status: Acute Subjective Date of service: 07/27/20 Principal diagnosis: ARF; Septic Shock; COVID-19 PNA; Atrial fibrillation; Obesity Interval history: pt remains intubated, sedated. intermittently requiring vasopressor support. tele reviewed - in AFib/AFlutter HR 90s. Objective Last Vital Signs Temp 98.7 F 07/27/20 08:00 Pulse 93 H 07/27/20 10:00 Resp 16 07/27/20 10:00 BP 102/55 07/27/20 10:00 Pulse Ox 99 07/27/20 10:00 - Physical Examination General: Other (trached, sedated) Neck: Positive: neck supple Cardiac: Positive: irregularly irregular, S1/S2 Lungs: Positive: Decreased Breath Sounds Neuro: Positive: Other (trached, sedated) Abdomen: Positive: Unremarkable Skin: Negative: Rash, Wound Extremities: Present: upper extr. pulses, lower extr. pulses, +1 Edema - Labs and Meds CBC 07/27/20 Range/Units 04:00 WBC 27.1 H (4.5-11.0) K/mm3 RBC 2.74 L (3.65-5.03) M/mm3 Hgb 8.3 L (11.8-15.2) gm/dl Hct 25.3 L (35.5-45.6) % Plt Count 202 (140-440) K/mm3 - Imaging and Cardiology EKG: report reviewed, image reviewed Echo: report reviewed (TDS, EF 55-60%. ) - Telemetry EKG Rhythm: Atrial Fibrillation - EKG Sinus rhythms and dysrhythmias: sinus tachycardia - Allied health notes Allied health notes reviewed: nursing
[2020-07-27] MEDS: POLYETHYLENE GLYCOL 3350 17 GM POWDER PO SCH (10:47)
[2020-07-27] MEDS: ASCORBIC ACID 250 MG TAB PO SCH ×2 (10:48→21:51)
[2020-07-27] MEDS: CHOLECALCIFEROL (VIT D3) 1000 UNIT (25 mcg) TAB PO SCH (10:48)
[2020-07-27] MEDS: AMIODARONE 200 MG TAB PO SCH ×2 (10:48→21:52)
--- NOTE | 2020-07-27 10:48 | Progress Note ---
Assessment and Plan Assessment and plan: -S/p dexamethasone and remdesivir therapy, contact/droplet isolation, vitamin C/vitamin D/zinc, anticoagulation per protocol, trend inflammatory markers -Wean mechanical ventilation as tolerated, VAP bundle -HD per nephrology -Transfuse for hemaglobin less than 7, s/p 9 units PRBC during stay -Nephrology, ID, heme-onc, GI , CCM, cardiology consulted,appreciate recommendations -BCR-ABL mutation testing pending -Per infectious disease: Continue ampicillin. Plan to exchange out lines if pressor requirement changes -Monitor leukocytosis and fevers -Hold systemic anticoagulation in setting of severe anemia -Amiodarone for rate control -s/p debridement by Dr. Kirk, WOCN consulted, WC per nursing, 07/27 debridement repeated -07/22 COVID-19 PCR negative, discontinued contact/droplet isolation DVT prophylaxis: GI prophylaxis, heparin subcu, SCDs to bilateral LE while in bed Disposition: ICU, ?placement ?trach/peg ?Ltach The high probability of a clinically significant, sudden or life threatening deterioration of the [multi] system(s) required my full and direct attention, intervention and personal management. The aggregate critical care time was [35] minutes. This time is in addition to time spent performing reported procedures but includes the following: [x] Data Review and interpretation [x] Patient assessment and monitoring of vital signs [x] Documentation [x] Medication orders and management History Interval history: 59-year-old white male who was admitted for pneumonia secondary to Covid with associated respiratory failure and sepsis. Severe septic shock COVID-19 pneumonia Sacral wound, stage 4 Leukocytosis Acute metabolic encephalopathy Acute hypoxic respiratory failure Enterococcus bacteremia Pneumomediastinum Acute kidney injury likely secondary to acute tubular necrosis which progressed to hemodialysis SVT/proximal atrial fibrillation Elevated LFTs Anemia likely due to severe sepsis had declining renal function Morbid obesity Leukocytosis Hypoalbuminemia 06/18: Patient got intubated overnight. Patient was placed on BiPAP to maintain oxygenation with 100% FiO2 but apparently he found to take off his argueta which made his oxygen saturation go down at 60s/50s and patient was found altered m ental status. Code met was called immediately. Patient was transferred to ICU and intubated, patient currently on 2 pressors, intubated with 100% FiO2, renal function noted to be decline, nephrology consulted. Discussed with [place] physician Dr. Thompson and requested call back on Saturday. Poor prognosis, continue to monitor with aggressive supportive care. Also called family/ to update clinical status. 06/19: Repeat COVID test was positive. cont cefepime, remdesivir per ID recommendation. follow inflammatory markers, cbc, bmp. placed on heparin drip for atrial fib 06/20: Remains on mechanical ventilation, on 2 pressors, on heparin drip. discussed with and daughter by phone. Renal function declining. cont supportive care for now. 06/21: Renal function cont to decline, urine outpt sig decreased. started on lasix 80mg BID, plan to follow urine output, if no improvement patient need to start on HD. called and daughter today. updated all clinical details 06/22: Renal function continues to decline with uremia and hyperkalemia. Will need to proceed with hemodialysis. Nephrology discussed with the family and they agrees for the hemodialysis. Patient remains on pressor support and mechanical ventilation. Vas-Cath placed today by vascular started on hemodialysis today. 06/23: 2nd round of HD today, remains on 2 pressors. per RN not tolerating TF, has no record of BM since 06/18. start on stool softner. follow cbc/bmp. updated family ( and daughter) by phone -all question answered to best of my knowledge and to their satisfaction. Patient remains critically ill with a very poor prognosis. 06/24: Continue supportive care, Very poor prognosis, Joiner Helper to discuss with family in am due to the futility of the condition. 06/25/2020 continue supportive care very poor prognosis 06/26/2020 continue supportive care very poor prognosis family updated 06/27/2020 continue supportive care and weaning if possible 06/28/2020 continue supportive care, talk with at length 06/29: Resumed care. K level persistently high. give one dose of bicarbonate, plan for HD today, recheck k after HD. updated family by phone 06/30: updated family by phone. Patient remains on amiodarone drip and vasopressin. Getting HD at the bedside. Tolerating tube feeding at low rate. 07/01: Hb dropped to 6.4 today, transfuse one unit PRBC. patient is off pressor today, remains on amioderone. cont to monitor 07/02: Called patient and updated clinical details. Patient remains critic ally ill, still intubated. Patient's oxygen requirement and PEEP pressure has went down. Continue weaning protocol per critical care recommendation. Patient remains off pressor. Continue to wean off from amiodarone and plan to rate control with p.o. medications. Tolerating tube feeding. H&H stable today. Order for stool for occult blood. Monitor H&H and BMP. Continue to follow clinically 07/03: discussed with [facility] physician today. Patient back on 100percent Fio2 since last night. planned for emergent Hd today. spiked fever, start IV Cefepime + Vancomycin renally dosed. Restarted Levophed today, remains on amiodarone drip. Patient family was updated by critical care attending today. 07/04: Patient has hemodialysis yesterday and also plan for today for volume overload and pulmonary edema. Patient currently on 80% FiO2. Remains on Levophed and amiodarone. Hemoglobin dropped to 6.7 without any evidence of active bleeding. LFTs remain stable. Repeat Covid test on 06/30 and 07/03 remains positive. Will transfuse another unit of packed RBC today. Called family for update -explained family that patient is critically ill with very poor prognosis. 07/05: Patient on 70% FiO2 with PEEP of 14. h/h stable after transfusion. hyperkalemia improved, cont sodiumbicarbonate pill with TF. follow BMP. off levophed today, remains on amioderone. poor prognosis. 07/06: Patient remains on amiodarone drip, maintaining BP without any pressor. FiO2 requirement trended down to 60% with PEEP of 14. Continue to follow clinically. Plan to wean off amiodarone drip as tolerated. Wean off from sedation as tolerated. Updated family. Patient remains critically ill with poor prognosis. 07/07: Called family for update. Off amiodarone drip today, patient also off pressor. FiO2 requirement trended up again to 80-100%. Continue to provide supportive care, monitor clinically. Having difficulty to wean off from the vent support. Patient is persistently positive for COVID-19 and COVID-19 antibody is nonreactive. Patient remains critically ill with very poor prognosis. 07/08: Continue supportive care. 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 Prognosis remains guarded to poor. Management per team. Critical care time 35-minute 07/09/20 patient is tachycardic. Heart rate 121. Hemoglobin 7.3. Patient is having hemodialysis. Continue supportive care. Patient having difficulty to wean off from the vent support. Prognosis is poor. Nephrology and cardiology follow-up. Recheck CBC BMP in the morning. Continue current management. 07/10/20 patient seen and examined, remains on full ventilator patient is doing better. Patient is off pressor. heart rate 123. Hemoglobin 6.8 and hematocrit 20.7. WBC is 18.1. Continue supportive care. Patient having difficulty to wean off from the vent support. We will started on Zosyn 4.5 g IV every 8 hours. Will transfuse 1 unit of packed red blood cell. Prognosis is poor. Nephrology and cardiology follow up. Recheck CBC BMP in the morning 07/11: remains off vasopressor, h/h appropriately responded to 1 unit PRBC. HD today. Remain on MV with fiO2 at 70%. peep 10. No acute events reported overnight. 07/12: Patient remains in atrial fibrillation on the professional tutor, vasopressor support with Levophed and vasopressin, sedated with fentanyl and propofol. Vent settings: CMV 500/25/14/0.60. Patient remains hypercarbic on ABG 07/13: Patient remains on vasopressin, fentanyl and propofol with rectal tube in place. This morning some examination patient was on assist control 25/500/14/ 0.60. Patient received hemodialysis today. No acute events reported overnight. 07/14: Remains on vasopressin, fentanyl and propofol with tube in place. Rectal tube in place with noted blood clots, GI consulted, on 07/13 H/H dropped from 8.7/ to 7.4/22 and anticoagulation discontinued. This morning I spoke to his who still wishes for the patient to remain a full code despite update with continued use of vasopressor (vasopressin), current ventilatory support (CMV 500/25/14/0.60) and recent development of rectal bleeding. Patient's family requests an update from [facility] and GI. Cardio changed amio from PO to IV given elevated HR 07/15: Today the patient received a total of 5 units of PRBC and is still having bleeding through his rectal tube. CTA abdomen/pelvis is pending, patient remains on Levophed, fentanyl, propofol, vasopressin and received hemodialysis today. He was also hyperkalemic today to 6 and he received insulin and D50. Extensive conversation with family conducted by CCM and hospitalist and his and 2 daughters did visit him today at the bedside. 07/16: Continues with full ventilatory support. FMS still inplace with some loose bloody stool. Still on multiple pressors, Bilateral swollen and generalized anascara. Monitor H/H and transfuse as needed. Monitor K level. Discussed with family at bedside yesterday. 07/17: Continue supportive care, transfusion blood possible in am with HD, continue abx, very poor prognosis, blood pressure still labile. Discussed with nurse at bedside 07/18: CTA abdomen/pelvis completed, antibiotics changed to Zosyn per infectious disease, remains on mechanical ventilation 450/25/12/0.55 continue amiodarone drip for 24 more hours, blood culture grew Enterococcus. Remains sedated on propofol and fentanyl. Not on vasopressor support today 07/19: No acute events reported overnight, remains sedated with fentanyl and propofol and off vasopressor therapy today. 07/20: s/p debridement with surgery today, remains on fentanyl, propofol, Le vophed and current vent settings 450/25/10/0.45. Patient will be transferred to a bariatric bed once available. 07/21: Continue current management, wean ventilator as tolerated, IV antibiotics deescalated to ampicillin. Per infectious disease no need to exchange/remove lines unless repeat blood cultures turn positive. The time my examination patient was sedated on fentanyl and propofol and remains off vasopressor support. 07/22: At the time my examination patient is sedated on fentanyl and propofol and remains off vasopressor support, repeat COVID-19 PCR negative. Patient remains on ampicillin. H/H remained stable and GI has signed off. Mechanical ventilation weaning as tolerated. 07/23. He remains sedated on fentanyl and propofol. On mechanical ventilation. On levophed. repeat COVID-19 PCR negative. Patient remains on ampicillin. H/H remained stable and GI has signed off. 07/24. He remains sedated and on mechanical ventilation. On levophed. repeat COVID-19 PCR negative. On ampicillin. ID recs appreciated. Labs reviewed 07/25: Patient remains sedated on fentanyl and Diprivan and remains on mechanical ventilation. Repeat CXR and still has leukocytosis. Patient is n.p.o. for trach and PEG with surgery. 07/26: Remains sedated on fentanyl and propofol. Remains on vasopressor support with Levophed. Current vent settings CMV 450/20/8/0.40. Patient is scheduled for PEG/trach with surgery. No acute events reported overnight. 07/27: Debridement with surgery to sacrum:, Activity restarted, remains sedated on propofol/fentanyl and Precedex support with Levophed. Current vent settings CMV 450/20/8/135. S/p trach/PEG with surgery 07/26. Patient remains afebrile however leukocytosis slightly worse today and he is still on his ampicillin. Patient was hypoglycemic overnight. Hospitalist Physical - Constitutional Vitals: Temp Pulse Resp BP Pulse Ox 98.7 F 93 H 16 102/55 99 07/27/20 08:00 07/27/20 10:00 07/27/20 10:00 07/27/20 10:00 07/27/20 10:00 General appearance: Present: no acute distress, well-nourished - EENT Eyes: Present: PERRL - Neck Neck: Present: normal ROM - Respiratory Respiratory effort: normal Respiratory: bilateral: diminished, rhonchi - Cardiovascular Rhythm: regular Heart Sounds: Present: S1 & S2. Absent: systolic murmur, diastolic murmur - Extremities Extremities: no ischemia, pulses intact, pulses symmetrical, normal color Extremity abnormal: edema Peripheral Pulses: within normal limits - Abdominal General gastrointestinal: soft, non-tender, non-distended, normal bowel sounds - Integumentary Integumentary: Present: warm, dry - Psychiatric Psychiatric: other (Sedated) - Neurologic Neurologic: other (Sedated) HEART Score - HEART Score Troponin: Troponin T < 0.010 ng/mL (0.00-0.029) 06/17/20 12:33 Results - Labs CBC & Chem 7: 07/27/20 04:00 07/26/20 08:46 Labs: Laboratory Last Values WBC 27.1 K/mm3 (4.5-11.0) H 07/27/20 04:00 RBC 2.74 M/mm3 (3.65-5.03) L 07/27/20 04:00 Hgb 8.3 gm/dl (11.8-15.2) L 07/27/20 04:00 Hct 25.3 % (35.5-45.6) L 07/27/20 04:00 MCV 93 fl (84-94) 07/27/20 04:00 MCH 31 pg (28-32) 07/27/20 04:00 MCHC 33 % (32-34) 07/27/20 04:00 RDW 17.2 % (13.2-15.2) H 07/27/20 04:00 Plt Count 202 K/mm3 (140-440) 07/27/20 04:00 Lymph % (Auto) 5.6 % (13.4-35.0) L 07/12/20 03:40 [place] % (Auto) 7.4 % (0.0-7.3) H 07/12/20 03:40 Eos % (Auto) 2.8 % (0.0-4.3) 07/12/20 03:40 Baso % (Auto) 0.3 % (0.0-1.8) 07/12/20 03:40 Lymph # (Auto) 1.4 K/mm3 (1.2-5.4) 07/12/20 03:40 [place] # (Auto) 1.8 K/mm3 (0.0-0.8) H 07/12/20 03:40 Eos # (Auto) 0.7 K/mm3 (0.0-0.4) H 07/12/20 03:40 Baso # (Auto) 0.1 K/mm3 (0.0-0.1) 07/12/20 03:40 Add Manual Diff Complete 07/27/20 04:00 Total Counted 100 07/27/20 04:00 Seg Neutrophils % Materials Engineer 07/17/20 15:25 Seg Neuts % (Manual) 85.0 % (40.0-70.0) H 07/27/20 04:00 Band Neutrophils % 1.0 % 07/26/20 Unknown Lymphocytes % (Manual) 4.0 % (13.4-35.0) L 07/27/20 04:00 Reactive Lymphs % (Man) 1.0 % 06/23/20 04:00 Monocytes % (Manual) 6.0 % (0.0-7.3) 07/27/20 04:00 Eosinophils % (Manual) 4.0 % (0.0-4.3) 07/27/20 04:00 Basophils % (Manual) 1.0 % (0.0-1.8) 07/27/20 04:00 Metamyelocytes % 1.0 % 07/26/20 Unknown Myelocytes % 1.0 % 07/25/20 05:39 Promyelocytes % 0 % 07/17/20 15:25 Nucleated RBC % Not Reportable 07/27/20 04:00 Seg Neutrophils # 20.4 K/mm3 (1.8-7.7) H 07/12/20 03:40 Seg Neutrophils # Man 23.0 K/mm3 (1.8-7.7) H 07/27/20 04:00 Band Neutrophils # 0.0 K/mm3 07/27/20 04:00 Lymphocytes # (Manual) 1.1 K/mm3 (1.2-5.4) L 07/27/20 04:00 Abs React Lymphs (Man) 0.0 K/mm3 07/27/20 04:00 Monocytes # (Manual) 1.6 K/mm3 (0.0-0.8) H 07/27/20 04:00 Eosinophils # (Manual) 1.1 K/mm3 (0.0-0.4) H 07/27/20 04:00 Basophils # (Manual) 0.3 K/mm3 (0.0-0.1) H 07/27/20 04:00 Metamyelocytes # 0.0 K/mm3 07/27/20 04:00 Myelocytes # 0.0 K/mm3 07/27/20 04:00 Promyelocytes # 0.0 K/mm3 07/27/20 04:00 Blast Cells # 0.0 K/mm3 07/27/20 04:00 Pathologist Review 07/17/20 15:25 WBC Morphology Not Reportable 07/27/20 04:00 Hypersegmented Neuts Not Reportable 07/27/20 04:00 Hyposegmented Neuts Not Reportable 07/27/20 04:00 Hypogranular Neuts Not Reportable 07/27/20 04:00 Smudge Cells Not Reportable 07/27/20 04:00 Toxic Granulation Not Reportable 07/27/20 04:00 Toxic Vacuolation Not Reportable 07/27/20 04:00 Dohle Bodies Not Reportable 07/27/20 04:00 Pelger-Huet Anomaly Not Reportable 07/27/20 04:00 Carlito Rods Not Reportable 07/27/20 04:00 Platelet Estimate Consistent w auto 07/27/20 04:00 Clumped Platelets Not Reportable 07/27/20 04:00 Plt Clumps, EDTA Not Reportable 07/27/20 04:00 Large Platelets Not Reportable 07/27/20 04:00 Giant Platelets Not Reportable 07/27/20 04:00 Platelet Satelliting Not Reportable 07/27/20 04:00 Plt Morphology Comment Not Reportable 07/27/20 04:00 RBC Morphology Not Reportable 07/27/20 04:00 Dimorphic RBCs Not Reportable 07/27/20 04:00 Polychromasia Not Reportable 07/27/20 04:00 Hypochromasia 1+ 07/27/20 04:00 Poikilocytosis Not Reportable 07/27/20 04:00 Anisocytosis Not Reportable 07/27/20 04:00 Microcytosis Not Reportable 07/27/20 04:00 Macrocytosis Not Reportable 07/27/20 04:00 Spherocytes Not Reportable 07/27/20 04:00 Pappenheimer Bodies Not Reportable 07/27/20 04:00 Sickle Cells Not Reportable 07/27/20 04:00 Target Cells Not Reportable 07/27/20 04:00 Tear Drop Cells Not Reportable 07/27/20 04:00 Ovalocytes Not Reportable 07/27/20 04:00 Stomatocytes Few 07/27/20 04:00 Helmet Cells Not Reportable 07/27/20 04:00 Brothers-Amberley Bodies Not Reportable 07/27/20 04:00 [place] Rings Not Reportable 07/27/20 04:00 Cedar Cells Not Reportable 07/27/20 04:00 Bite Cells Not Reportable 07/27/20 04:00 Crenated Cell Not Reportable 07/27/20 04:00 Elliptocytes Not Reportable 07/27/20 04:00 Acanthocytes (Spur) Not Reportable 07/27/20 04:00 Rouleaux Not Reportable 07/27/20 04:00 Hemoglobin C Crystals Not Reportable 07/27/20 04:00 Schistocytes Not Reportable 07/27/20 04:00 Malaria parasites Not Reportable 07/27/20 04:00 Victoriano Bodies Not Reportable 07/27/20 04:00 Hem Pathologist Commnt No 07/27/20 04:00 PT 15.3 Sec. (12.2-14.9) H 07/24/20 20:40 INR 1.21 (0.87-1.13) H 07/24/20 20:40 APTT 36.1 Sec. (24.2-36.6) 07/24/20 20:40 Fibrinogen 419 mg/dl (211-480) 07/15/20 08:21 D-Dimer 6608.00 ng/mlDDU (0-234) H 07/03/20 14:50 Heparin Anti-Xa Level < 0.10 U.I./ml (0.3-0.7) L 06/26/20 01:30 ABG pH 7.355 (7.320-7.450) 07/23/20 04:56 POC ABG pCO2 46.9 mmHg (32.0-48.0) 07/23/20 04:56 ABG pCO2 56.4 mm Hg 07/05/20 04:30 POC ABG pO2 75.7 mmHg (83-108) L 07/23/20 04:56 ABG pO2 151.9 mm Hg (80.0-90.0) H 07/05/20 04:30 POC ABG HCO3 25.6 07/23/20 04:56 ABG HCO3 26.8 mmol/L (20.0-26.0) H 07/05/20 04:30 ABG O2 Saturation 94.8 (0-100) 07/23/20 04:56 ABG O2 Content 5.0 (0.0-44) 07/04/20 05:20 POC ABG Base Excess -0.1 07/23/20 04:56 ABG Base Excess 0.1 mmol/L (-2.0-3.0) 07/05/20 04:30 ABG Hemoglobin 9.3 (12.0-17.5) L 07/23/20 04:56 ABG Oxyhemoglobin 91.7 (94-98) L 07/22/20 04:11 ABG Carboxyhemoglobin 1.7 % (0.0-5.0) 07/05/20 04:30 ABG Methemoglobin 0.3 (0.0-1.5) 07/22/20 04:11 ABG Sodium 139.7 mmol/L (136.0-145.0) 07/23/20 04:56 ABG Potassium 3.1 mmol/L (3.40-4.50) L 07/23/20 04:56 ABG Chloride 108.0 mmol/L (98-107) H 07/23/20 04:56 ABG Glucose 101 mg/dL (65-95) H 07/23/20 04:56 Oxyhemoglobin 96.5 % (95.0-99.0) 07/05/20 04:30 Carboxyhemoglobin 1.3 (0.5-1.5) 07/22/20 04:11 FiO2 50 07/20/20 06:00 FiO2 % 40 07/23/20 04:56 Sodium 139 mmol/L (137-145) 07/26/20 08:46 Potassium 3.7 mmol/L (3.6-5.0) 07/26/20 08:46 Chloride 101.4 mmol/L (98-107) 07/26/20 08:46 Carbon Dioxide 31 mmol/L (22-30) H 07/26/20 08:46 Anion Gap 10 mmol/L 07/26/20 08:46 BUN 37 mg/dL (9-20) H 07/26/20 08:46 Creatinine 2.2 mg/dL (0.8-1.3) H 07/26/20 08:46 Estimated GFR 37 ml/min 07/26/20 08:46 BUN/Creatinine Ratio 17 % 07/26/20 08:46 Glucose 89 mg/dL (75-100) 07/26/20 08:46 POC Glucose 115 mg/dL (70-105) H 07/27/20 07:09 Lactic Acid 0.90 mmol/L (0.7-2.0) 07/23/20 Unknown Calcium 8.2 mg/dL (8.4-10.2) L 07/26/20 08:46 Phosphorus 9.40 mg/dL (2.5-4.5) H 06/30/20 03:50 Magnesium 2.70 mg/dL (1.7-2.3) H 06/18/20 20:33 Ferritin 1171.0 ng/mL (30.0-300.0) H 07/03/20 14:50 Total Bilirubin 0.20 mg/dL (0.1-1.2) 07/24/20 06:40 Direct Bilirubin 0.5 mg/dL (0-0.2) H 07/05/20 08:21 Indirect Bilirubin 0.1 mg/dL 07/05/20 08:21 AST 46 units/L (5-40) H 07/24/20 06:40 ALT 74 units/L (7-56) H 07/24/20 06:40 Alkaline Phosphatase 180 units/L (35-129) H 07/24/20 06:40 Lactate Dehydrogenase 525 units/L (91-180) H 07/03/20 14:50 Total Creatine Kinase 618 units/L (55-170) H 06/29/20 Unknown Troponin T < 0.010 ng/mL (0.00-0.029) 06/17/20 12:33 C-Reactive Protein 31.50 mg/dL (0.00-1.30) H 07/03/20 14:50 Total Protein 4.6 g/dL (6.3-8.2) L 07/24/20 06:40 Albumin 2.0 g/dL (3.9-5) L 07/24/20 06:40 Albumin/Globulin Ratio 0.8 % 07/24/20 06:40 Triglycerides 166 mg/dL (2-149) H 07/26/20 08:46 Procalcitonin 6.05 ng/mL (<0.15) 07/13/20 06:59 Arterial Blood Glucose 101 mg/dL (65-95) H 07/23/20 04:56 Arterial Blood Ionized Calcium 5.3 mg/dL (4.6-5.3) 07/23/20 04:56 Urine Color Yellow (Yellow) 06/17/20 15:57 Urine Turbidity Clear (Clear) 06/17/20 15:57 Urine pH 6.0 (5.0-7.0) 06/17/20 15:57 Ur Specific [place] 1.019 (1.003-1.030) 06/17/20 15:57 Urine Protein 30 mg/dl mg/dL (Negative) 06/17/20 15:57 Urine Glucose (UA) Neg mg/dL (Negative) 06/17/20 15:57 Urine Ketones Neg mg/dL (Negative) 06/17/20 15:57 Urine Blood Sm (Negative) 06/17/20 15:57 Urine Nitrite Neg (Negative) 06/17/20 15:57 Ur Reducing Substances Not Reportable 06/17/20 15:57 Urine Bilirubin Neg (Negative) 06/17/20 15:57 Urine Ictotest Not Reportable 06/17/20 15:57 Urine Urobilinogen < 2.0 mg/dL (<2.0) 06/17/20 15:57 Ur Leukocyte Esterase Neg (Negative) 06/17/20 15:57 Urine WBC (Auto) 1.0 /HPF (0.0-6.0) 06/17/20 15:57 Urine RBC (Auto) 2.0 /HPF (0.0-6.0) 06/17/20 15:57 Urine Mucus Few /HPF 06/17/20 15:57 Urine Creatinine 192.4 mg/dL (0.1-20.0) H 06/18/20 15:00 Urine Sodium 28 mmol/L 06/18/20 15:00 Urine Chloride 31.1 mmolL (110-250) L 06/18/20 15:00 Nasal Screen MRSA (PCR) Negative (Negative) 06/19/20 10:38 Vancomycin Trough 22.7 ug/mL (5.0-20.0) H 06/20/20 08:25 Random Vancomycin 13.5 ug/mL (0-40.0) 07/16/20 07:17 Coronavirus (PCR) Negative (Negative) 07/22/20 Unknown Hepatitis A IgM Ab Non-reactive (NonReactive) 06/22/20 17:00 Hep Bs Antigen Non-reactive (Negative) 06/22/20 17:00 Hep B Core IgM Ab Non-reactive (NonReactive) 06/22/20 17:00 Hepatitis C Antibody Non-reactive (NonReactive) 06/22/20 17:00 SARS-CoV-2 IgG Ab Nonreactive (NonReactive) 07/04/20 05:20 Blood Type A POSITIVE 07/24/20 20:38 Antibody Screen Negative 07/24/20 20:38 Crossmatch See Detail 07/24/20 20:38 - Diagnostic Impressions Diagnostic Impressions: Echocardiogram 06/29/20 06:00 Transthoracic Echocardiogram Indication: A-fib BP: 105/47 HR: 99 Conclusions *The study is technically very difficult and limited due to poor acoustic windows. *Global left ventricular wall motion and contractility are within normal limits. *The estimated ejection fraction is 55-60%. *There is no pericardial effusion. Findings Procedure Info: The study quality is technically difficult. The study is technically limited due to poor acoustic windows. Left Ventricle: Global left ventricular wall motion and contractility are within normal limits. Global left ventricular systolic function is normal. The estimated ejection fraction is 55-60%. Left Atrium: The left atrium is not well visualized. Right Ventricle: The right ventricle is not well visualized. Right Atrium: The right atrium is not well visualized. Aortic Valve: The aortic valve is not well visualized. Mitral Valve: The mitral valve is not well visualized. Tricuspid Valve: The tricuspid valve is not well visualized. Pulmonic Valve: The pulmonic valve is not well visualized. Pericardium: There is no pericardial effusion. Venous: There is no change in the dimension of the inferior vena cava with respiration consistent with markedly increased right atrial pressure. [place]ell/IV: Voiding Method Incontinent Active Medications - Current Medications Current Medications: Generic Name Dose Route Start Last Admin Trade Name Freq PRN Reason Stop Dose Admin Acetaminophen 650 mg 06/17/20 14:17 07/03/20 09:16 Acetaminophen 325 Mg Tab PO 650 mg Q4H PRN Administration Pain MILD(1-3)/Fever >100.5/ROBERTS Albuterol 2.5 mg 07/19/20 12:15 Albuterol 2.5 Mg/3 Ml Nebu IH Q6HRT PRN Shortness Of Breath Amiodarone HCl 200 mg 07/19/20 14:00 07/26/20 22:31 Amiodarone 200 Mg Tab PO Not Given BID CONNOR Lipase/Protease/Amylase 1 each 06/19/20 12:15 Lipase 10,500/Protease 25,000/Amylase 43,750 (Units) Dr Kulkarni FEEDTUBE PRN PRN For Clogged Feeding Tube Ascorbic Acid 250 mg 06/17/20 22:00 07/26/20 22:31 Ascorbic Acid 250 Mg Tab PO Not Given BID CONNOR Cholecalciferol 1,000 unit 06/18/20 10:00 07/26/20 13:51 Cholecalciferol (Vit D3) 1000 Unit (25 Mcg) Tab PO Not Given DAILY [facility] Dextrose 50 ml 07/26/20 22:00 07/27/20 06:42 Dextrose 50% In Water (25gm) 50 Ml Syringe IV 50 ml Q30MIN PRN Administration Hypoglycemia Protocol Docusate Sodium 100 mg 06/23/20 15:00 07/26/20 22:31 Docusate Sodium 100 Mg/10 Ml Oral Liqd FEEDTUBE Not Given BID [facility] Fentanyl 50 mcg 06/18/20 01:02 07/09/20 00:20 Fentanyl 100 Mcg/2 Ml Inj IV 50 mcg Q10MIN PRN Administration ANALGESIA Heparin Sodium (Porcine) 5,000 unit 06/22/20 12:53 06/30/20 13:36 Heparin 10,000 Unit/1 Ml Vial IV 5,000 unit PAM PRN Administration hemodialysis Hydrophilic Ointment 1 applic 06/17/20 22:52 07/12/20 20:22 Lip Therapy Vaseline TP 1 applic Q2HR PRN Administration Dry Lips Propofol 1,000 mg in 100 mls @ 3.402 mls/hr 06/18/20 01:00 07/27/20 08:30 Diprivan 10 Mg/Ml IV 15 mcg/kg/min TITR [facility] 10.206 mls/hr Titration Protocol 5 MCG/KG/MIN Fentanyl Citrate 2,000 mcg in 100 mls @ 8 mls/hr 06/18/20 02:00 07/27/20 04 :32 Fentanyl Drip Premix IV 2 mcg/kg/hr TITR [facility] 16 mls/hr Administration Protocol 1 MCG/KG/HR Norepinephrine 4 mg in 250 mls @ 7.5 mls/hr 07/08/20 02:06 07/26/20 18:38 Levophed Drip 4 Mg/Ns 250 Ml IV 4 mcg/min TITR [facility] 15 mls/hr Administration Protocol 2 MCG/MIN Vasopressin 20 unit/ Sodium 101 mls @ 9.09 mls/hr 07/11/20 11:00 07/18/20 15:36 Chloride IV 0 units/min TITR [facility] 0 mls/hr Titration Protocol 0.03 UNITS/MIN Ampicillin Sodium 2 gm in 100 mls @ 100 mls/hr 07/21/20 12:00 07/27/20 01:19 Ampicillin/Ns 2 Gm/100 Ml IV 08/02/20 12:59 Infused Q12H [facility] Infusion Protocol Sodium Chloride 100 mls @ 999 mls/hr 07/26/20 15:30 Nacl 0.9% IV PAM PRN Hypotension Insulin Human Regular 0 units 06/18/20 12:00 07/27/20 07:01 Insulin Regular, Human 100 Units/1 Ml SUB-Q Not Given Q6HR [facility] Protocol Multi-Ingred Cream/Lotion/Oil/Oint 1 applic 06/17/20 22:52 07/12/20 20:22 Mineral Oil/Petrolatum, White Ophth Oint 3.5 Gm OU 1 applic Q4HR PRN Administration Dry Eye(s) Ondansetron HCl 4 mg 06/17/20 14:17 Ondansetron 4 Mg/2 Ml Inj IV Q8H PRN Nausea And Vomiting Pantoprazole Sodium 40 mg 07/16/20 22:00 07/26/20 22:17 Pantoprazole 40 Mg Inj IV 40 mg BID [facility] Administration Polyethylene Glycol 17 gm 06/23/20 15:00 07/26/20 13:51 Polyethylene Glycol 3350 17 Gm Powder PO Not Given QDAY [facility] Quetiapine Fumarate 200 mg 06/28/20 13:00 07/26/20 22:31 Quetiapine 200 Mg Tab PO Not Given BID [facility] Silver Nitrate 6 each 07/27/20 11:00 Silver Nitrate Applicator 1 Ea TP 07/27/20 11:01 ONCE ONE Simple Syrup 15 ml 06/19/20 12:15 07/26/20 13:55 Simple Syrup 15 Ml FEEDTUBE 15 ml PRN PRN Administration Hypoglycemia Simple Syrup 30 ml 06/19/20 12:15 07/19/20 06:04 Simple Syrup 15 Ml FEEDTUBE 30 ml PRN PRN Administration Hypoglycemia Sodium Bicarbonate 325 mg 06/19/20 12:15 07/11/20 20:00 Sodium Bicarbonate 325 Mg Tab FEEDTUBE 325 mg PRN PRN Administration For Clogged Feeding Tube Sodium Chloride 10 ml 06/17/20 22:00 07/26/20 22:38 Sodium Chloride 0.9% 10 Ml Flush Syringe IV 10 ml BID [facility] Administration Sodium Chloride 10 ml 06/17/20 14:17 Sodium Chloride 0.9% 10 Ml Flush Syringe IV PRN PRN LINE FLUSH Sodium Hypochlorite 1 applic 07/20/20 10:00 07/26/20 22:38 Sodium Hypochlorite, Dakin's 1/2 Strength (0.25%) 473 Ml Topical Soln TP 1 applicatio BID [facility] Administration Zinc Sulfate 220 mg 06/17/20 22:00 07/26/20 22:31 Zinc Sulfate 220 Mg Cap PO Not Given BID [facility] Nutrition/Malnutrition Assess - Dietary Evaluation Nutrition/Malnutrition Findings: Nutrition Notes Start: 06/18/20 10:28 Freq: Status: Active Protocol: Document 07/26/20 12:56 AL (Rec: 07/26/20 13:06 AL [id number]) Co-Sign 07/26/20 12:56 LP Nutrition Notes Initial or Follow up Reassessment Current Diagnosis Acute Kidney Injury,Sepsis, Respiratory Failure Other Pertinent Diagnosis COVID-19 (+), pneu, on HD. Current Diet NPO Labs/Tests BUN 37 Cr 2.2 Pertinent Medications Levophed Propofol 10.2 ml/hr (269 kcal) Height 6 ft Weight 169.5 kg [place] Body Weight (kg) 80.90 BMI 50.6 Weight change and time frame Wt change of 15.6 kg (9.2%) noted. Pt on HD Weight Status Morbidly Obese Subjective/Other Information F/U for TF tolerance, wounds, and vent status. Pt has NPO order and TF was not running at time of visit. Pt still on vent and is getting a trach and PEG placed soon. Percent of energy/protein needs met: 0%/0% Burn Absent Trauma Absent GI Symptoms Other Skin Integrity/Comment Unstageable Sacral Pressure Ulcer Current % PO Negligible Minimum of two criteria No physical signs of malnutrition #3 Nutrition Diagnosis Increased nutrient needs ( specify in comment below) Comments: Protein Diagnosis Progress(for reassessment Continues documentation) #1 Nutrition Diagnosis Inadequate oral intake Diagnosis Progress(for reassessment Continues documentation) Is patient on ventilator? Yes Is Patient Ambulatory and/or Out of Bed No REE-([facility]-confined to bed) 3043.524 Kcal/Kg value to use for calculation 13 Approximate Energy Requirements Using 2204 kcal/Kg Calculation Used for Recommendations Kcal/kg Additional Notes Protein needs up to >2 g/kg IBW: 162 g Fluid needs: 1,000 ml + output Nutrition Intervention Change Diet Order: Advance diet to TF when medically feasible. Nutrition Support: Nepro 1.8 at 50 ml/hr Flush 215 ml q4h Kcal 2,160 Protein (gm) 97 Fluid (mL) 872 Goal #1 Restart TF Goal #2 Meet energy and protein needs as best as possible Goal #3 Wound healing. Anticipated Discharge Needs: Nepro 1.8 at 50 ml/hr Flush 215 ml q4h Follow-Up By: 07/28/20 Additional Comments F/U for trach and PEG placement, TF tolerance.
[2020-07-27] MEDS: SODIUM HYPOCHLORITE, DAKIN'S 1/2 STRENGTH (0.25%) 473 ML TOPICAL SOLN TP SCH ×2 (10:49→21:50)
[2020-07-27] MEDS: DOCUSATE SODIUM 100 MG/10 ML ORAL LIQD FEEDTUBE SCH ×2 (10:52→21:50)
[2020-07-27] MEDS: QUEtiapine 200 MG TAB PO SCH ×2 (10:59→21:51)
[2020-07-27] MEDS: ZINC SULFATE 220 MG CAP PO SCH ×2 (10:59→21:51)
[2020-07-27] MEDS: PANTOPRAZOLE 40 MG INJ IV SCH ×2 (10:59→21:51)
[2020-07-27] MEDS ORDERED: SILVER NITRATE APPLICATOR 1 EA TP ONE (11:00)
--- NOTE | 2020-07-27 12:09 | Procedure Note ---
Date of procedure: 07/27/20 Pre-op diagnosis: Stage 4 sacral pressure ulcer Post-op diagnosis: same Procedure: Debridement of sacral pressure ulcer Description of procedure: Pt was placed left side down. The sacral area was prepped and draped. Necrotic SQ tissue, muscle and fascia were surgically, excisionally debrided with forceps, scissors and scalpel. Bleeding was minimal and was controlled with silver nitrate. Wound was then dressed by the Wound Care nurse. Pt tolerated the procedure well. Post-debridement measurements: 14 X 17 X 3.3 cm Anesthesia: none Surgeon: MANE AKBAR Estimated blood loss: 50-100ml Pathology: none Specimen disposition: discarded Condition: stable Disposition: no change
--- NOTE | 2020-07-27 13:33 | Progress Note ---
Assessment and Plan Acute hypoxemic respiratory failure due to COVID-19 Severe COVID infection Severe Sepsis with shock Bilateral pneumonia Acute kidney injury (GIRISH) with acute tubular necrosis (ATN) Elevated liver enzymes Obesity - get CXR and address - HD/UF per nephrology prescription (sounds volume overloaded today) - resume SBT's in am - keep peep at 8 cm H2O - continue care as below otherwise; - continue wound care per WCN / RN - continue on bariatric bed - continue to avoid supine position as much as possible - adjust ant-infective's per ID rec's (Ampicillin) - continue bid protonix - wean vasopressors for target MAP > 65 mmHg - continue daily SAT's & SBT's as tolerated - continue tube feeds at goal rate as tolerated - continue HD/UF per nephrology team for toxin and volume clearance - continue bowel regimen - Continue to wean supplemental oxygen for O2 sats >92% - Monitor blood pressure closely while optimizing sedation,wean vasopressor support for MAP > 65 mmHg - VAP bundle addressed, aspiration precautions HOB >40 - continue lung protective strategies, permissive hypercapnic acceptable. - continue bronchodilators with routine trach care and pulmonary hygiene per RT - wean per pulmonary driven protocols otherwise - accuchecks with glycemic control per SSI (While critically ill target blood glucose of 140-180 mg/dL; avoid hypoglycemia) - sedation prn for target RASS -1 to -2 - continue enteral nutritional support at goal rate as tolerated - on antibiotics per ID recommendations - follow clinically re: fevers / WBC - Monitor liver function test ,avoid hepatotoxic agents - azotemia per nephrology rec's - Avoid nephrotoxins, renally dose all medications, conservative fluid management - continue to avoid benzodiazepines, reduce the possibility of delirium, - prn analgesia per CPOT score - Maintenance of sleep-wake cycle, avoid delirium - Stress ulcer prophylaxis, Pantoprazole - PT/OT/ROM exercises - Mobility protocols for pressure ulcer prevention - CXR, ABG in am - CBC, CMP in am - Supportive transfusions to keep HgB >7g/dL - Monitor hemodynamics closely - continue other care per attending / other consultants COVID SPECIFIC INTERVENTIONS - s/p steroids: Dexamethasone - completed Remdesivir - monitor inflammatory markers prn - ferritin, D-dimer, CRP, LDH per facility protocol - continue anticoagulation per System Protocol based on d-dimer (on hold due to bleeding) - continue contact and airborne isolation CONDITION: CRITICAL PROGNOSIS: GUARDED CODE STATUS: FULL CODE The high probability of a clinically significant, sudden or life-threatening deterioration of the [respiratory, cardiovascular, hematologic & neurologic] system(s) required my full and direct attention, intervention and personal management. The aggregate critical care time was [32] minutes without overlap. Time includes spent on; [x] Data Review and interpretation [x] Patient assessment and monitoring of vital signs [x] Documentation [x] Medication orders and management He was evaluated in the context of the global COVID-19 pandemic, which necessitated consideration that the patient might be at risk for infection with the virus that causes COVID-19. Institutional protocols and algorithms that pertain to the evaluation of patients at risk for COVID-19 are in a state of ra pid change based on information released by regulatory bodies including the CDC and federal and state organizations. These policies and algorithms were followed during the patient's care in the ICU Please note that these policies, procedures and recommendations changed on a rapid basis. Subjective Date of service: 07/27/20 Principal diagnosis: ARF; Septic Shock; COVID-19 PNA; Atrial fibrillation; Obesity Interval history: Patient is seen today for: Ac hypoxemic respiratory failure; COVID-19; Severe Sepsis with shock; Zackery. pneumonia; GIRISH; Elevated liver enzymes; Obesity Seen and examined at bedside; 24hour events reviewed; nursing and respiratory care staff consulted; no adverse overnight events reported to me; resting in bed; remains on MVS; now s/p trach / PEG; remains on MVS; failed bedside SBT even with p-supp of 20 cmH2O; no emesis or overt aspiration Objective Vital Signs - 12hr 07/27/20 07/27/20 07/27/20 02:00 02:30 03:00 Temperature Pulse Rate 90 90 90 Pulse Rate [ From Monitor] Respiratory 21 21 19 Rate Blood Pressure 113/58 108/63 116/61 O2 Sat by Pulse 96 97 97 Oximetry 07/27/20 07/27/20 07/27/20 03:30 03:38 04:00 Temperature 97.9 F Pulse Rate 90 90 Pulse Rate [ 90 From Monitor] Respiratory 22 20 Rate Blood Pressure 114/56 119/67 O2 Sat by Pulse 98 97 Oximetry 07/27/20 07/27/20 07/27/20 04:30 04:44 05:00 Temperature Pulse Rate 90 90 90 Pulse Rate [ From Monitor] Respiratory 18 23 Rate Blood Pressure 116/59 123/61 115/66 O2 Sat by Pulse 99 99 98 Oximetry 07/27/20 07/27/20 07/27/20 05:31 06:00 06:30 Temperature Pulse Rate 94 H 104 H 109 H Pulse Rate [ From Monitor] Respiratory 20 20 18 Rate Blood Pressure 109/64 109/57 88/47 O2 Sat by Pulse 96 99 Oximetry 07/27/20 07/27/20 07/27/20 07:00 07:22 07:30 Temperature Pulse Rate 100 H 91 H 91 H Pulse Rate [ From Monitor] Respiratory 15 17 Rate Blood Pressure 99/49 110/59 101/58 O2 Sat by Pulse 99 99 99 Oximetry 07/27/20 07/27/20 07/27/20 08:00 08:30 09:00 Temperature 98.7 F Pulse Rate 96 H 92 H 92 H Pulse Rate [ 90 From Monitor] Respiratory 15 17 17 Rate Blood Pressure 98/52 103/60 92/50 O2 Sat by Pulse 99 99 99 Oximetry 07/27/20 07/27/20 07/27/20 09:30 10:00 10:30 Temperature Pulse Rate 92 H 93 H 105 H Pulse Rate [ From Monitor] Respiratory 11 L 16 14 Rate Blood Pressure 103/56 102/55 98/59 O2 Sat by Pulse 99 99 98 Oximetry 07/27/20 07/27/20 07/27/20 11:00 11:31 11:51 Temperature Pulse Rate 120 H 111 H 107 H Pulse Rate [ From Monitor] Respiratory 35 H 13 Rate Blood Pressure 108/67 127/80 127/77 O2 Sat by Pulse 93 96 96 Oximetry 07/27/20 07/27/20 12:00 12:30 Temperature 98.4 F Pulse Rate 93 H 141 H Pulse Rate [ From Monitor] Respiratory 27 H 22 Rate Blood Pressure 106/52 111/65 O2 Sat by Pulse 96 95 Oximetry Constitutional: appears uncomfortable, other (morbidly obese, atraumatic, normocephalic, mild resp distress, orally intubated) Eyes: non-icteric ENT: oropharynx moist, other (ETT 23 cm TROY) Neck: supple, no lymphadenopathy, other (Large , short neck) Effort: mildly labored Ascultation: Bilateral: diminished breath sounds, rales Percussion: Bilateral: not dull Cardiovascular: irregular rhythm, other (S1,S2) Gastrointestinal: normoactive bowel sounds, soft, non-tender, non-distended (protuberant) Integumentary: rash, other (Femoral CVC, Newell catheter) Extremities: pink and warm, pulses normal, no ischemia or petechiae, edema (trace to 1+) Neurologic: non-focal exam (grossly), pupils equal and round, CN II-XII normal, other (unable to assess, sedated) Psychiatric: other (unable to assess, sedated) CBC and BMP: 07/27/20 04:00 07/26/20 08:46 ABG, PT/INR, D-dimer: ABG ABG pH 7.355 (7.320-7.450) 07/23/20 04:56 POC ABG pCO2 46.9 mmHg (32.0-48.0) 07/23/20 04:56 ABG pCO2 56.4 mm Hg 07/05/20 04:30 POC ABG pO2 75.7 mmHg (83-108) L 07/23/20 04:56 ABG pO2 151.9 mm Hg (80.0-90.0) H 07/05/20 04:30 POC ABG HCO3 25.6 07/23/20 04:56 ABG O2 Saturation 94.8 (0-100) 07/23/20 04:56 PT/INR, D-dimer PT 15.3 Sec. (12.2-14.9) H 07/24/20 20:40 INR 1.21 (0.87-1.13) H 07/24/20 20:40 D-Dimer 6608.00 ng/mlDDU (0-234) H 07/03/20 14:50 Abnormal lab findings: Abnormal Labs 06/17/20 06/17/20 06/17/20 12:33 12:33 12:33 WBC 19.5 H RBC 5.18 H Hgb 15.5 H Hct MCHC RDW Plt Count Lymph % (Auto) 3.8 L [place] % (Auto) Lymph # (Auto) 0.7 L [place] # (Auto) Eos # (Auto) Seg Neutrophils % Seg Neuts % (Manual) 99.0 H Lymphocytes % (Manual) 1.0 L Monocytes % (Manual) Basophils % (Manual) Nucleated RBC % Seg Neutrophils # 18.2 H Seg Neutrophils # Man 19.3 H Lymphocytes # (Manual) 0.2 L Monocytes # (Manual) Eosinophils # (Manual) Basophils # (Manual) PT 16.5 H INR 1.33 H APTT D-Dimer 1025.04 H Heparin Anti-Xa Level ABG pH POC ABG pCO2 POC ABG pO2 ABG pO2 ABG HCO3 ABG Hemoglobin ABG Oxyhemoglobin ABG Sodium ABG Potassium ABG Chloride ABG Glucose Carboxyhemoglobin Sodium 130 L Potassium 3.4 L Chloride 95.0 L Carbon Dioxide BUN 21 H Creatinine Glucose 137 H POC Glucose Lactic Acid Calcium 7.9 L Phosphorus Magnesium Ferritin Direct Bilirubin AST 84 H ALT 67 H Alkaline Phosphatase Lactate Dehydrogenase 437 H Total Creatine Kinase 310 H C-Reactive Protein 27.90 H Total Protein Albumin 2.9 L Triglycerides Arterial Blood Glucose Arterial Blood Ionized Calcium Urine Creatinine Urine Chloride Vancomycin Trough Coronavirus (PCR) Crossmatch 06/17/20 06/17/20 06/17/20 12:33 12:33 14:48 WBC RBC Hgb Hct MCHC RDW Plt Count Lymph % (Auto) [place] % (Auto) Lymph # (Auto) [place] # (Auto) Eos # (Auto) Seg Neutrophils % Seg Neuts % (Manual) Lymphocytes % (Manual) Monocytes % (Manual) Basophils % (Manual) Nucleated RBC % Seg Neutrophils # Seg Neutrophils # Man Lymphocytes # (Manual) Monocytes # (Manual) Eosinophils # (Manual) Basophils # (Manual) PT INR APTT D-Dimer Heparin Anti-Xa Level ABG pH POC ABG pCO2 POC ABG pO2 ABG pO2 ABG HCO3 ABG Hemoglobin ABG Oxyhemoglobin ABG Sodium ABG Potassium ABG Chloride ABG Glucose Carboxyhemoglobin Sodium Potassium Chloride Carbon Dioxide BUN Creatinine Glucose POC Glucose Lactic Acid 2.50 H* 2.20 H* Calcium Phosphorus Magnesium Ferritin 2297.0 H Direct Bilirubin AST ALT Alkaline Phosphatase Lactate Dehydrogenase Total Creatine Kinase C-Reactive Protein Total Protein Albumin Triglycerides Arterial Blood Glucose Arterial Blood Ionized Calcium Urine Creatinine Urine Chloride Vancomycin Trough Coronavirus (PCR) Crossmatch 06/17/20 06/17/20 06/17/20 14:48 14:48 14:48 WBC RBC Hgb Hct MCHC RDW Plt Count Lymph % (Auto) [place] % (Auto) Lymph # (Auto) [place] # (Auto) Eos # (Auto) Seg Neutrophils % Seg Neuts % (Manual) Lymphocytes % (Manual) Monocytes % (Manual) Basophils % (Manual) Nucleated RBC % Seg Neutrophils # Seg Neutrophils # Man Lymphocytes # (Manual) Monocytes # (Manual) Eosinophils # (Manual) Basophils # (Manual) PT INR APTT D-Dimer 939.89 H Heparin Anti-Xa Level ABG pH POC ABG pCO2 POC ABG pO2 ABG pO2 ABG HCO3 ABG Hemoglobin ABG Oxyhemoglobin ABG Sodium ABG Potassium ABG Chloride ABG Glucose Carboxyhemoglobin Sodium Potassium Chloride Carbon Dioxide BUN Creatinine Glucose 141 H POC Glucose Lactic Acid Calcium Phosphorus Magnesium Ferritin > 2000.0 H Direct Bilirubin AST ALT Alkaline Phosphatase Lactate Dehydrogenase 503 H Total Creatine Kinase C-Reactive Protein 24.70 H Total Protein Albumin Triglycerides Arterial Blood Glucose Arterial Blood Ionized Calcium Urine Creatinine Urine Chloride Vancomycin Trough Coronavirus (PCR) Crossmatch 06/17/20 06/17/20 06/17/20 16:54 19:39 23:43 WBC RBC Hgb Hct MCHC RDW Plt Count Lymph % (Auto) [place] % (Auto) Lymph # (Auto) [place] # (Auto) Eos # (Auto) Seg Neutrophils % Seg Neuts % (Manual) Lymphocytes % (Manual) Monocytes % (Manual) Basophils % (Manual) Nucleated RBC % Seg Neutrophils # Seg Neutrophils # Man Lymphocytes # (Manual) Monocytes # (Manual) Eosinophils # (Manual) Basophils # (Manual) PT INR APTT D-Dimer Heparin Anti-Xa Level ABG pH 7.571 H POC ABG pCO2 24.3 L POC ABG pO2 41.6 L ABG pO2 ABG HCO3 ABG Hemoglobin ABG Oxyhemoglobin 84.0 L ABG Sodium 131.0 L ABG Potassium ABG Chloride ABG Glucose 163 H Carboxyhemoglobin Sodium Potassium Chloride Carbon Dioxide BUN Creatinine Glucose POC Glucose 185 H Lactic Acid 2.10 H* Calcium Phosphorus Magnesium Ferritin Direct Bilirubin AST ALT Alkaline Phosphatase Lactate Dehydrogenase Total Creatine Kinase C-Reactive Protein Total Protein Albumin Triglycerides Arterial Blood Glucose 163 H Arterial Blood Ionized Calcium 4.4 L Urine Creatinine Urine Chloride Vancomycin Trough Coronavirus (PCR) Crossmatch 06/18/20 06/18/20 06/18/20 00:17 00:23 03:55 WBC RBC Hgb Hct MCHC RDW Plt Count Lymph % (Auto) [place] % (Auto) Lymph # (Auto) [place] # (Auto) Eos # (Auto) Seg Neutrophils % Seg Neuts % (Manual) Lymphocytes % (Manual) Monocytes % (Manual) Basophils % (Manual) Nucleated RBC % Seg Neutrophils # Seg Neutrophils # Man Lymphocytes # (Manual) Monocytes # (Manual) Eosinophils # (Manual) Basophils # (Manual) PT INR APTT D-Dimer Heparin Anti-Xa Level ABG pH POC ABG pCO2 POC ABG pO2 56.5 L 48.3 L ABG pO2 ABG HCO3 ABG Hemoglobin ABG Oxyhemoglobin 86.3 L 81.7 L ABG Sodium 132.9 L 131.0 L ABG Potassium ABG Chloride ABG Glucose 189 H 161 H Carboxyhemoglobin 0.4 L Sodium Potassium Chloride Carbon Dioxide BUN Creatinine Glucose POC Glucose Lactic Acid 3.80 H* Calcium Phosphorus Magnesium Ferritin Direct Bilirubin AST ALT Alkaline Phosphatase Lactate Dehydrogenase Total Creatine Kinase C-Reactive Protein Total Protein Albumin Triglycerides Arterial Blood Glucose 189 H 161 H Arterial Blood Ionized Calcium 4.3 L 4.2 L Urine Creatinine Urine Chloride Vancomycin Trough Coronavirus (PCR) Crossmatch 06/18/20 06/18/20 06/18/20 05:39 05:39 05:39 WBC 26.2 H RBC Hgb Hct MCHC RDW Plt Count Lymph % (Auto) [place] % (Auto) Lymph # (Auto) [place] # (Auto) Eos # (Auto) Seg Neutrophils % Seg Neuts % (Manual) 90.0 H Lymphocytes % (Manual) 5.0 L Monocytes % (Manual) Basophils % (Manual) Nucleated RBC % Seg Neutrophils # Seg Neutrophils # Man 23.6 H Lymphocytes # (Manual) Monocytes # (Manual) 1.3 H Eosinophils # (Manual) Basophils # (Manual) PT INR APTT D-Dimer Heparin Anti-Xa Level ABG pH POC ABG pCO2 POC ABG pO2 ABG pO2 ABG HCO3 ABG Hemoglobin ABG Oxyhemoglobin ABG Sodium ABG Potassium ABG Chloride ABG Glucose Carboxyhemoglobin Sodium 135 L Potassium Chloride 97.5 L Carbon Dioxide 21 L BUN 39 H Creatinine 1.7 H D Glucose 168 H POC Glucose Lactic Acid 3.40 H* Calcium 7.2 L Phosphorus Magnesium Ferritin Direct Bilirubin AST ALT Alkaline Phosphatase Lactate Dehydrogenase Total Creatine Kinase C-Reactive Protein Total Protein Albumin Triglycerides Arterial Blood Glucose Arterial Blood Ionized Calcium Urine Creatinine Urine Chloride Vancomycin Trough Coronavirus (PCR) Crossmatch 06/18/20 06/18/20 06/18/20 07:24 09:00 10:10 WBC RBC Hgb Hct MCHC RDW Plt Count Lymph % (Auto) [place] % (Auto) Lymph # (Auto) [place] # (Auto) Eos # (Auto) Seg Neutrophils % Seg Neuts % (Manual) Lymphocytes % (Manual) Monocytes % (Manual) Basophils % (Manual) Nucleated RBC % Seg Neutrophils # Seg Neutrophils # Man Lymphocytes # (Manual) Monocytes # (Manual) Eosinophils # (Manual) Basophils # (Manual) PT INR APTT D-Dimer Heparin Anti-Xa Level ABG pH POC ABG pCO2 POC ABG pO2 ABG pO2 ABG HCO3 ABG Hemoglobin ABG Oxyhemoglobin ABG Sodium ABG Potassium ABG Chloride ABG Glucose Carboxyhemoglobin Sodium Potassium Chloride Carbon Dioxide BUN Creatinine Glucose POC Glucose Lactic Acid 2.90 H* 3.20 H* Calcium Phosphorus Magnesium Ferritin Direct Bilirubin AST ALT Alkaline Phosphatase Lactate Dehydrogenase Total Creatine Kinase C-Reactive Protein Total Protein Albumin Triglycerides Arterial Blood Glucose Arterial Blood Ionized Calcium Urine Creatinine Urine Chloride Vancomycin Trough Coronavirus (PCR) Positive A Crossmatch 06/18/20 06/18/20 06/18/20 11:58 14:43 15:00 WBC RBC Hgb Hct MCHC RDW Plt Count Lymph % (Auto) [place] % (Auto) Lymph # (Auto) [place] # (Auto) Eos # (Auto) Seg Neutrophils % Seg Neuts % (Manual) Lymphocytes % (Manual) Monocytes % (Manual) Basophils % (Manual) Nucleated RBC % Seg Neutrophils # Seg Neutrophils # Man Lymphocytes # (Manual) Monocytes # (Manual) Eosinophils # (Manual) Basophils # (Manual) PT INR APTT D-Dimer Heparin Anti-Xa Level ABG pH 7.303 L POC ABG pCO2 POC ABG pO2 82.3 L ABG pO2 ABG HCO3 ABG Hemoglobin ABG Oxyhemoglobin ABG Sodium 135.3 L ABG Potassium ABG Chloride ABG Glucose 215 H Carboxyhemoglobin 0.3 L Sodium Potassium Chloride Carbon Dioxide BUN Creatinine Glucose POC Glucose 209 H Lactic Acid Calcium Phosphorus Magnesium Ferritin Direct Bilirubin AST ALT Alkaline Phosphatase Lactate Dehydrogenase Total Creatine Kinase C-Reactive Protein Total Protein Albumin Triglycerides Arterial Blood Glucose 215 H Arterial Blood Ionized Calcium 4.2 L Urine Creatinine 192.4 H Urine Chloride 31.1 L Vancomycin Trough Coronavirus (PCR) Crossmatch 06/18/20 06/18/20 06/18/20 17:16 19:44 20:33 WBC RBC Hgb Hct MCHC RDW Plt Count Lymph % (Auto) [place] % (Auto) Lymph # (Auto) [place] # (Auto) Eos # (Auto) Seg Neutrophils % Seg Neuts % (Manual) Lymphocytes % (Manual) Monocytes % (Manual) Basophils % (Manual) Nucleated RBC % Seg Neutrophils # Seg Neutrophils # Man Lymphocytes # (Manual) Monocytes # (Manual) Eosinophils # (Manual) Basophils # (Manual) PT INR APTT D-Dimer Heparin Anti-Xa Level ABG pH POC ABG pCO2 POC ABG pO2 ABG pO2 ABG HCO3 ABG Hemoglobin ABG Oxyhemoglobin ABG Sodium ABG Potassium ABG Chloride ABG Glucose Carboxyhemoglobin Sodium Potassium Chloride Carbon Dioxide BUN Creatinine Glucose POC Glucose 182 H Lactic Acid 3.00 H* Calcium Phosphorus Magnesium 2.70 H Ferritin Direct Bilirubin AST ALT Alkaline Phosphatase Lactate Dehydrogenase Total Creatine Kinase C-Reactive Protein Total Protein Albumin Triglycerides Arterial Blood Glucose Arterial Blood Ionized Calcium Urine Creatinine Urine Chloride Vancomycin Trough Coronavirus (PCR) Crossmatch 06/18/20 06/19/20 06/19/20 23:43 04:00 04:00 WBC 31.6 H RBC Hgb Hct MCHC RDW Plt Count Lymph % (Auto) [place] % (Auto) Lymph # (Auto) [place] # (Auto) Eos # (Auto) Seg Neutrophils % Seg Neuts % (Manual) 98.0 H Lymphocytes % (Manual) 0.5 L Monocytes % (Manual) Basophils % (Manual) Nucleated RBC % Seg Neutrophils # Seg Neutrophils # Man 31.0 H Lymphocytes # (Manual) 0.2 L Monocytes # (Manual) Eosinophils # (Manual) Basophils # (Manual) PT INR APTT D-Dimer Heparin Anti-Xa Level ABG pH POC ABG pCO2 POC ABG pO2 ABG pO2 ABG HCO3 ABG Hemoglobin ABG Oxyhemoglobin ABG Sodium ABG Potassium ABG Chloride ABG Glucose Carboxyhemoglobin Sodium Potassium Chloride Carbon Dioxide BUN 56 H Creatinine 1.6 H Glucose 176 H POC Glucose 149 H Lactic Acid Calcium 7.0 L Phosphorus Magnesium Ferritin Direct Bilirubin AST 244 H ALT 159 H Alkaline Phosphatase Lactate Dehydrogenase Total Creatine Kinase C-Reactive Protein Total Protein 4.9 L D Albumin 2.5 L Triglycerides Arterial Blood Glucose Arterial Blood Ionized Calcium Urine Creatinine Urine Chloride Vancomycin Trough Coronavirus (PCR) Crossmatch 06/19/20 06/19/20 06/19/20 04:00 05:44 11:42 WBC RBC Hgb Hct MCHC RDW Plt Count Lymph % (Auto) [place] % (Auto) Lymph # (Auto) [place] # (Auto) Eos # (Auto) Seg Neutrophils % Seg Neuts % (Manual) Lymphocytes % (Manual) Monocytes % (Manual) Basophils % (Manual) Nucleated RBC % Seg Neutrophils # Seg Neutrophils # Man Lymphocytes # (Manual) Monocytes # (Manual) Eosinophils # (Manual) Basophils # (Manual) PT INR APTT D-Dimer Heparin Anti-Xa Level ABG pH 7.265 L POC ABG pCO2 51.8 H POC ABG pO2 65.1 L ABG pO2 ABG HCO3 ABG Hemoglobin ABG Oxyhemoglobin ABG Sodium ABG Potassium ABG Chloride ABG Glucose 184 H Carboxyhemoglobin Sodium Potassium Chloride Carbon Dioxide BUN Creatinine Glucose POC Glucose 156 H 191 H Lactic Acid Calcium Phosphorus Magnesium Ferritin Direct Bilirubin AST ALT Alkaline Phosphatase Lactate Dehydrogenase Total Creatine Kinase C-Reactive Protein Total Protein Albumin Triglycerides Arterial Blood Glucose 184 H Arterial Blood Ionized Calcium 4.3 L Urine Creatinine Urine Chloride Vancomycin Trough Coronavirus (PCR) Crossmatch 06/19/20 06/19/20 06/19/20 12:30 17:16 18:36 WBC RBC Hgb Hct MCHC RDW Plt Count Lymph % (Auto) [place] % (Auto) Lymph # (Auto) [place] # (Auto) Eos # (Auto) Seg Neutrophils % Seg Neuts % (Manual) Lymphocytes % (Manual) Monocytes % (Manual) Basophils % (Manual) Nucleated RBC % Seg Neutrophils # Seg Neutrophils # Man Lymphocytes # (Manual) Monocytes # (Manual) Eosinophils # (Manual) Basophils # (Manual) PT 16.4 H INR 1.32 H APTT D-Dimer Heparin Anti-Xa Level ABG pH 7.088 L POC ABG pCO2 78.1 H POC ABG pO2 208.3 H ABG pO2 ABG HCO3 ABG Hemoglobin ABG Oxyhemoglobin 98.3 H ABG Sodium ABG Potassium 5.0 H ABG Chloride ABG Glucose 182 H Carboxyhemoglobin 0.4 L Sodium Potassium Chloride Carbon Dioxide BUN Creatinine Glucose POC Glucose 154 H Lactic Acid Calcium Phosphorus Magnesium Ferritin Direct Bilirubin AST ALT Alkaline Phosphatase Lactate Dehydrogenase Total Creatine Kinase C-Reactive Protein Total Protein Albumin Triglycerides Arterial Blood Glucose 182 H Arterial Blood Ionized Calcium 4.3 L Urine Creatinine Urine Chloride Vancomycin Trough Coronavirus (PCR) Crossmatch 06/19/20 06/20/20 06/20/20 23:32 03:00 05:19 WBC RBC Hgb Hct MCHC RDW Plt Count Lymph % (Auto) [place] % (Auto) Lymph # (Auto) [place] # (Auto) Eos # (Auto) Seg Neutrophils % Seg Neuts % (Manual) Lymphocytes % (Manual) Monocytes % (Manual) Basophils % (Manual) Nucleated RBC % Seg Neutrophils # Seg Neutrophils # Man Lymphocytes # (Manual) Monocytes # (Manual) Eosinophils # (Manual) Basophils # (Manual) PT INR APTT D-Dimer Heparin Anti-Xa Level 0.77 H ABG pH POC ABG pCO2 POC ABG pO2 ABG pO2 ABG HCO3 ABG Hemoglobin ABG Oxyhemoglobin ABG Sodium ABG Potassium ABG Chloride ABG Glucose Carboxyhemoglobin Sodium Potassium Chloride Carbon Dioxide BUN Creatinine Glucose POC Glucose 201 H 190 H Lactic Acid Calcium Phosphorus Magnesium Ferritin Direct Bilirubin AST ALT Alkaline Phosphatase Lactate Dehydrogenase Total Creatine Kinase C-Reactive Protein Total Protein Albumin Triglycerides Arterial Blood Glucose Arterial Blood Ionized Calcium Urine Creatinine Urine Chloride Vancomycin Trough Coronavirus (PCR) Crossmatch 06/20/20 06/20/20 06/20/20 08:25 08:25 11:36 WBC RBC Hgb Hct MCHC RDW Plt Count Lymph % (Auto) [place] % (Auto) Lymph # (Auto) [place] # (Auto) Eos # (Auto) Seg Neutrophils % Seg Neuts % (Manual) Lymphocytes % (Manual) Monocytes % (Manual) Basophils % (Manual) Nucleated RBC % Seg Neutrophils # Seg Neutrophils # Man Lymphocytes # (Manual) Monocytes # (Manual) Eosinophils # (Manual) Basophils # (Manual) PT INR APTT D-Dimer Heparin Anti-Xa Level ABG pH POC ABG pCO2 POC ABG pO2 ABG pO2 ABG HCO3 ABG Hemoglobin ABG Oxyhemoglobin ABG Sodium ABG Potassium ABG Chloride ABG Glucose Carboxyhemoglobin Sodium 135 L Potassium 5.4 H Chloride 109.2 H Carbon Dioxide 19 L BUN 68 H Creatinine 2.5 H D Glucose 201 H POC Glucose 184 H Lactic Acid Calcium 5.5 L* D Phosphorus Magnesium Ferritin Direct Bilirubin AST 123 H ALT 86 H Alkaline Phosphatase Lactate Dehydrogenase Total Creatine Kinase C-Reactive Protein Total Protein 4.6 L Albumin 1.5 L Triglycerides Arterial Blood Glucose Arterial Blood Ionized Calcium Urine Creatinine Urine Chloride Vancomycin Trough 22.7 H Coronavirus (PCR) Crossmatch 06/20/20 06/20/20 06/20/20 11:40 17:28 20:00 WBC RBC Hgb Hct MCHC RDW Plt Count Lymph % (Auto) [place] % (Auto) Lymph # (Auto) [place] # (Auto) Eos # (Auto) Seg Neutrophils % Seg Neuts % (Manual) Lymphocytes % (Manual) Monocytes % (Manual) Basophils % (Manual) Nucleated RBC % Seg Neutrophils # Seg Neutrophils # Man Lymphocytes # (Manual) Monocytes # (Manual) Eosinophils # (Manual) Basophils # (Manual) PT INR APTT D-Dimer Heparin Anti-Xa Level 0.89 H ABG pH 7.099 L POC ABG pCO2 61.1 H POC ABG pO2 ABG pO2 ABG HCO3 ABG Hemoglobin ABG Oxyhemoglobin ABG Sodium ABG Potassium 5.0 H ABG Chloride 111.0 H ABG Glucose 200 H Carboxyhemoglobin 0.4 L Sodium Potassium Chloride Carbon Dioxide BUN Creatinine Glucose POC Glucose 165 H Lactic Acid Calcium Phosphorus Magnesium Ferritin Direct Bilirubin AST ALT Alkaline Phosphatase Lactate Dehydrogenase Total Creatine Kinase C-Reactive Protein Total Protein Albumin Triglycerides Arterial Blood Glucose 200 H Arterial Blood Ionized Calcium 4.2 L Urine Creatinine Urine Chloride Vancomycin Trough Coronavirus (PCR) Crossmatch 06/20/20 06/21/20 06/21/20 23:29 05:00 05:20 WBC RBC Hgb Hct MCHC RDW Plt Count Lymph % (Auto) [place] % (Auto) Lymph # (Auto) [place] # (Auto) Eos # (Auto) Seg Neutrophils % Seg Neuts % (Manual) Lymphocytes % (Manual) Monocytes % (Manual) Basophils % (Manual) Nucleated RBC % Seg Neutrophils # Seg Neutrophils # Man Lymphocytes # (Manual) Monocytes # (Manual) Eosinophils # (Manual) Basophils # (Manual) PT INR APTT D-Dimer Heparin Anti-Xa Level ABG pH POC ABG pCO2 POC ABG pO2 ABG pO2 ABG HCO3 ABG Hemoglobin ABG Oxyhemoglobin ABG Sodium ABG Potassium ABG Chloride ABG Glucose Carboxyhemoglobin Sodium Potassium Chloride 112.0 H Carbon Dioxide 20 L BUN 92 H Creatinine 3.9 H D Glucose 214 H POC Glucose 145 H 191 H Lactic Acid Calcium 6.5 L D Phosphorus Magnesium Ferritin Direct Bilirubin AST 98 H ALT 84 H Alkaline Phosphatase Lactate Dehydrogenase Total Creatine Kinase C-Reactive Protein Total Protein 4.6 L Albumin 2.1 L Triglycerides 180 H Arterial Blood Glucose Arterial Blood Ionized Calcium Urine Creatinine Urine Chloride Vancomycin Trough Coronavirus (PCR) Crossmatch 06/21/20 06/21/20 06/21/20 08:56 11:12 12:43 WBC RBC Hgb Hct MCHC RDW Plt Count Lymph % (Auto) [place] % (Auto) Lymph # (Auto) [place] # (Auto) Eos # (Auto) Seg Neutrophils % Seg Neuts % (Manual) Lymphocytes % (Manual) Monocytes % (Manual) Basophils % (Manual) Nucleated RBC % Seg Neutrophils # Seg Neutrophils # Man Lymphocytes # (Manual) Monocytes # (Manual) Eosinophils # (Manual) Basophils # (Manual) PT INR APTT D-Dimer Heparin Anti-Xa Level 0.28 L ABG pH 7.184 L POC ABG pCO2 48.3 H POC ABG pO2 172.1 H ABG pO2 ABG HCO3 ABG Hemoglobin ABG Oxyhemoglobin 98.7 H ABG Sodium ABG Potassium 4.9 H ABG Chloride 112.0 H ABG Glucose 196 H Carboxyhemoglobin 0.2 L Sodium Potassium Chloride Carbon Dioxide BUN Creatinine Glucose POC Glucose 177 H Lactic Acid Calcium Phosphorus Magnesium Ferritin Direct Bilirubin AST ALT Alkaline Phosphatase Lactate Dehydrogenase Total Creatine Kinase C-Reactive Protein Total Protein Albumin Triglycerides Arterial Blood Glucose 196 H Arterial Blood Ionized Calcium 4.1 L Urine Creatinine Urine Chloride Vancomycin Trough Coronavirus (PCR) Crossmatch 06/21/20 06/21/20 06/22/20 16:31 Unknown 00:12 WBC RBC Hgb Hct MCHC RDW Plt Count Lymph % (Auto) [place] % (Auto) Lymph # (Auto) [place] # (Auto) Eos # (Auto) Seg Neutrophils % Seg Neuts % (Manual) Lymphocytes % (Manual) Monocytes % (Manual) Basophils % (Manual) Nucleated RBC % Seg Neutrophils # Seg Neutrophils # Man Lymphocytes # (Manual) Monocytes # (Manual) Eosinophils # (Manual) Basophils # (Manual) PT INR APTT D-Dimer Heparin Anti-Xa Level 0.78 H ABG pH POC ABG pCO2 POC ABG pO2 ABG pO2 ABG HCO3 ABG Hemoglobin ABG Oxyhemoglobin ABG Sodium ABG Potassium ABG Chloride ABG Glucose Carboxyhemoglobin Sodium Potassium Chloride Carbon Dioxide BUN Creatinine Glucose POC Glucose 150 H 173 H Lactic Acid Calcium Phosphorus Magnesium Ferritin Direct Bilirubin AST ALT Alkaline Phosphatase Lactate Dehydrogenase Total Creatine Kinase C-Reactive Protein Total Protein Albumin Triglycerides Arterial Blood Glucose Arterial Blood Ionized Calcium Urine Creatinine Urine Chloride Vancomycin Trough Coronavirus (PCR) Crossmatch 06/22/20 06/22/20 06/22/20 04:00 05:04 05:30 WBC 33.9 H RBC Hgb 11.7 L Hct 35.2 L MCHC RDW 15.8 H Plt Count Lymph % (Auto) [place] % (Auto) Lymph # (Auto) [place] # (Auto) Eos # (Auto) Seg Neutrophils % Seg Neuts % (Manual) 93.0 H Lymphocytes % (Manual) 5.0 L Monocytes % (Manual) Basophils % (Manual) Nucleated RBC % Seg Neutrophils # Seg Neutrophils # Man 31.5 H Lymphocytes # (Manual) Monocytes # (Manual) Eosinophils # (Manual) Basophils # (Manual) PT INR APTT D-Dimer Heparin Anti-Xa Level ABG pH 7.169 L POC ABG pCO2 POC ABG pO2 ABG pO2 ABG HCO3 ABG Hemoglobin ABG Oxyhemoglobin ABG Sodium ABG Potassium 5.1 H ABG Chloride 112.0 H ABG Glucose 186 H Carboxyhemoglobin 0.3 L Sodium Potassium Chloride Carbon Dioxide BUN Creatinine Glucose POC Glucose 161 H Lactic Acid Calcium Phosphorus Magnesium Ferritin Direct Bilirubin AST ALT Alkaline Phosphatase Lactate Dehydrogenase Total Creatine Kinase C-Reactive Protein Total Protein Albumin Triglycerides Arterial Blood Glucose 186 H Arterial Blood Ionized Calcium 4.1 L Urine Creatinine Urine Chloride Vancomycin Trough Coronavirus (PCR) Crossmatch 06/22/20 06/22/20 06/22/20 05:30 11:39 13:27 WBC RBC Hgb Hct MCHC RDW Plt Count Lymph % (Auto) [place] % (Auto) Lymph # (Auto) [place] # (Auto) Eos # (Auto) Seg Neutrophils % Seg Neuts % (Manual) Lymphocytes % (Manual) Monocytes % (Manual) Basophils % (Manual) Nucleated RBC % Seg Neutrophils # Seg Neutrophils # Man Lymphocytes # (Manual) Monocytes # (Manual) Eosinophils # (Manual) Basophils # (Manual) PT INR APTT D-Dimer Heparin Anti-Xa Level ABG pH POC ABG pCO2 POC ABG pO2 ABG pO2 ABG HCO3 ABG Hemoglobin ABG Oxyhemoglobin ABG Sodium ABG Potassium ABG Chloride ABG Glucose Carboxyhemoglobin Sodium Potassium 5.7 H Chloride 111.3 H Carbon Dioxide 18 L BUN 112 H Creatinine 5.0 H Glucose 173 H POC Glucose 172 H 176 H Lactic Acid Calcium 6.7 L Phosphorus Magnesium Ferritin Direct Bilirubin AST ALT Alkaline Phosphatase Lactate Dehydrogenase Total Creatine Kinase C-Reactive Protein Total Protein Albumin Triglycerides Arterial Blood Glucose Arterial Blood Ionized Calcium Urine Creatinine Urine Chloride Vancomycin Trough Coronavirus (PCR) Crossmatch 06/22/20 06/22/20 06/22/20 14:37 17:00 17:40 WBC RBC Hgb Hct MCHC RDW Plt Count Lymph % (Auto) [place] % (Auto) Lymph # (Auto) [place] # (Auto) Eos # (Auto) Seg Neutrophils % Seg Neuts % (Manual) Lymphocytes % (Manual) Monocytes % (Manual) Basophils % (Manual) Nucleated RBC % Seg Neutrophils # Seg Neutrophils # Man Lymphocytes # (Manual) Monocytes # (Manual) Eosinophils # (Manual) Basophils # (Manual) PT INR APTT D-Dimer Heparin Anti-Xa Level 1.32 H ABG pH POC ABG pCO2 POC ABG pO2 ABG pO2 ABG HCO3 ABG Hemoglobin ABG Oxyhemoglobin ABG Sodium ABG Potassium ABG Chloride ABG Glucose Carboxyhemoglobin Sodium Potassium Chloride Carbon Dioxide BUN Creatinine Glucose POC Glucose 171 H Lactic Acid Calcium Phosphorus Magnesium Ferritin Direct Bilirubin AST ALT Alkaline Phosphatase Lactate Dehydrogenase Total Creatine Kinase C-Reactive Protein 5.30 H Total Protein Albumin Triglycerides Arterial Blood Glucose Arterial Blood Ionized Calcium Urine Creatinine Urine Chloride Vancomycin Trough Coronavirus (PCR) Crossmatch 06/22/20 06/23/20 06/23/20 23:36 02:13 02:41 WBC RBC Hgb Hct MCHC RDW Plt Count Lymph % (Auto) [place] % (Auto) Lymph # (Auto) [place] # (Auto) Eos # (Auto) Seg Neutrophils % Seg Neuts % (Manual) Lymphocytes % (Manual) Monocytes % (Manual) Basophils % (Manual) Nucleated RBC % Seg Neutrophils # Seg Neutrophils # Man Lymphocytes # (Manual) Monocytes # (Manual) Eosinophils # (Manual) Basophils # (Manual) PT INR APTT D-Dimer Heparin Anti-Xa Level 0.21 L ABG pH 7.318 L POC ABG pCO2 POC ABG pO2 157.5 H ABG pO2 ABG HCO3 ABG Hemoglobin ABG Oxyhemoglobin ABG Sodium 135.6 L ABG Potassium 4.6 H ABG Chloride 110.0 H ABG Glucose 169 H Carboxyhemoglobin Sodium Potassium Chloride Carbon Dioxide BUN Creatinine Glucose POC Glucose 155 H Lactic Acid Calcium Phosphorus Magnesium Ferritin Direct Bilirubin AST ALT Alkaline Phosphatase Lactate Dehydrogenase Total Creatine Kinase C-Reactive Protein Total Protein Albumin Triglycerides Arterial Blood Glucose 169 H Arterial Blood Ionized Calcium Urine Creatinine Urine Chloride Vancomycin Trough Coronavirus (PCR) Crossmatch 06/23/20 06/23/20 06/23/20 04:00 04:00 05:24 WBC 27.4 H RBC Hgb 11.3 L Hct 33.8 L MCHC RDW Plt Count Lymph % (Auto) [place] % (Auto) Lymph # (Auto) [place] # (Auto) Eos # (Auto) Seg Neutrophils % Seg Neuts % (Manual) 93.0 H Lymphocytes % (Manual) 1.0 L Monocytes % (Manual) Basophils % (Manual) Nucleated RBC % 1.0 H Seg Neutrophils # Seg Neutrophils # Man 25.5 H Lymphocytes # (Manual) 0.3 L Monocytes # (Manual) 1.1 H Eosinophils # (Manual) Basophils # (Manual) PT INR APTT D-Dimer Heparin Anti-Xa Level ABG pH POC ABG pCO2 POC ABG pO2 ABG pO2 ABG HCO3 ABG Hemoglobin ABG Oxyhemoglobin ABG Sodium ABG Potassium ABG Chloride ABG Glucose Carboxyhemoglobin Sodium Potassium Chloride 107.6 H Carbon Dioxide 20 L BUN 100 H Creatinine 4.7 H Glucose 168 H POC Glucose 151 H Lactic Acid Calcium Phosphorus Magnesium Ferritin Direct Bilirubin AST ALT Alkaline Phosphatase Lactate Dehydrogenase Total Creatine Kinase C-Reactive Protein Total Protein Albumin Triglycerides Arterial Blood Glucose Arterial Blood Ionized Calcium Urine Creatinine Urine Chloride Vancomycin Trough Coronavirus (PCR) Crossmatch 06/23/20 06/23/20 06/23/20 11:30 17:18 23:50 WBC RBC Hgb Hct MCHC RDW Plt Count Lymph % (Auto) [place] % (Auto) Lymph # (Auto) [place] # (Auto) Eos # (Auto) Seg Neutrophils % Seg Neuts % (Manual) Lymphocytes % (Manual) Monocytes % (Manual) Basophils % (Manual) Nucleated RBC % Seg Neutrophils # Seg Neutrophils # Man Lymphocytes # (Manual) Monocytes # (Manual) Eosinophils # (Manual) Basophils # (Manual) PT INR APTT D-Dimer Heparin Anti-Xa Level ABG pH POC ABG pCO2 POC ABG pO2 ABG pO2 ABG HCO3 ABG Hemoglobin ABG Oxyhemoglobin ABG Sodium ABG Potassium ABG Chloride ABG Glucose Carboxyhemoglobin Sodium Potassium Chloride Carbon Dioxide BUN Creatinine Glucose POC Glucose 157 H 156 H 162 H Lactic Acid Calcium Phosphorus Magnesium Ferritin Direct Bilirubin AST ALT Alkaline Phosphatase Lactate Dehydrogenase Total Creatine Kinase C-Reactive Protein Total Protein Albumin Triglycerides Arterial Blood Glucose Arterial Blood Ionized Calcium Urine Creatinine Urine Chloride Vancomycin Trough Coronavirus (PCR) Crossmatch 06/24/20 06/24/20 06/24/20 04:41 05:57 06:30 WBC 34.3 H RBC Hgb 10.9 L Hct 32.6 L MCHC RDW Plt Count Lymph % (Auto) 2.0 L [place] % (Auto) Lymph # (Auto) 0.7 L [place] # (Auto) 1.2 H Eos # (Auto) Seg Neutrophils % Seg Neuts % (Manual) 96.0 H Lymphocytes % (Manual) 3.0 L Monocytes % (Manual) Basophils % (Manual) Nucleated RBC % Seg Neutrophils # 32.3 H Seg Neutrophils # Man 32.9 H Lymphocytes # (Manual) 1.0 L Monocytes # (Manual) Eosinophils # (Manual) Basophils # (Manual) PT INR APTT D-Dimer Heparin Anti-Xa Level ABG pH POC ABG pCO2 POC ABG pO2 71.1 L ABG pO2 ABG HCO3 ABG Hemoglobin ABG Oxyhemoglobin 92.4 L ABG Sodium 115.6 L ABG Potassium ABG Chloride ABG Glucose 159 H Carboxyhemoglobin Sodium Potassium Chloride Carbon Dioxide BUN Creatinine Glucose POC Glucose 143 H Lactic Acid Calcium Phosphorus Magnesium Ferritin Direct Bilirubin AST ALT Alkaline Phosphatase Lactate Dehydrogenase Total Creatine Kinase C-Reactive Protein Total Protein Albumin Triglycerides Arterial Blood Glucose 159 H Arterial Blood Ionized Calcium 4.2 L Urine Creatinine Urine Chloride Vancomycin Trough Coronavirus (PCR) Crossmatch 06/24/20 06/24/20 06/24/20 07:03 09:37 11:56 WBC RBC Hgb Hct MCHC RDW Plt Count Lymph % (Auto) [place] % (Auto) Lymph # (Auto) [place] # (Auto) Eos # (Auto) Seg Neutrophils % Seg Neuts % (Manual) Lymphocytes % (Manual) Monocytes % (Manual) Basophils % (Manual) Nucleated RBC % Seg Neutrophils # Seg Neutrophils # Man Lymphocytes # (Manual) Monocytes # (Manual) Eosinophils # (Manual) Basophils # (Manual) PT INR APTT D-Dimer Heparin Anti-Xa Level 0.26 L ABG pH POC ABG pCO2 POC ABG pO2 ABG pO2 ABG HCO3 ABG Hemoglobin ABG Oxyhemoglobin ABG Sodium ABG Potassium ABG Chloride ABG Glucose Carboxyhemoglobin Sodium Potassium 5.1 H Chloride Carbon Dioxide BUN 103 H Creatinine 5.0 H Glucose 163 H POC Glucose 149 H Lactic Acid Calcium 7.6 L Phosphorus Magnesium Ferritin Direct Bilirubin AST ALT Alkaline Phosphatase Lactate Dehydrogenase Total Creatine Kinase C-Reactive Protein Total Protein Albumin Triglycerides Arterial Blood Glucose Arterial Blood Ionized Calcium Urine Creatinine Urine Chloride Vancomycin Trough Coronavirus (PCR) Crossmatch 06/24/20 06/25/20 06/25/20 18:09 01:05 03:00 WBC RBC Hgb 10.6 L Hct 32.1 L MCHC RDW Plt Count Lymph % (Auto) [place] % (Auto) Lymph # (Auto) [place] # (Auto) Eos # (Auto) Seg Neutrophils % Seg Neuts % (Manual) Lymphocytes % (Manual) Monocytes % (Manual) Basophils % (Manual) Nucleated RBC % Seg Neutrophils # Seg Neutrophils # Man Lymphocytes # (Manual) Monocytes # (Manual) Eosinophils # (Manual) Basophils # (Manual) PT INR APTT D-Dimer Heparin Anti-Xa Level ABG pH POC ABG pCO2 POC ABG pO2 ABG pO2 ABG HCO3 ABG Hemoglobin ABG Oxyhemoglobin ABG Sodium ABG Potassium ABG Chloride ABG Glucose Carboxyhemoglobin Sodium Potassium Chloride Carbon Dioxide BUN Creatinine Glucose POC Glucose 141 H 137 H Lactic Acid Calcium Phosphorus Magnesium Ferritin Direct Bilirubin AST ALT Alkaline Phosphatase Lactate Dehydrogenase Total Creatine Kinase C-Reactive Protein Total Protein Albumin Triglycerides Arterial Blood Glucose Arterial Blood Ionized Calcium Urine Creatinine Urine Chloride Vancomycin Trough Coronavirus (PCR) Crossmatch 06/25/20 06/25/20 06/25/20 03:48 05:17 12:08 WBC RBC Hgb Hct MCHC RDW Plt Count Lymph % (Auto) [place] % (Auto) Lymph # (Auto) [place] # (Auto) Eos # (Auto) Seg Neutrophils % Seg Neuts % (Manual) Lymphocytes % (Manual) Monocytes % (Manual) Basophils % (Manual) Nucleated RBC % Seg Neutrophils # Seg Neutrophils # Man Lymphocytes # (Manual) Monocytes # (Manual) Eosinophils # (Manual) Basophils # (Manual) PT INR APTT D-Dimer Heparin Anti-Xa Level ABG pH POC ABG pCO2 29.4 L POC ABG pO2 67.1 L ABG pO2 ABG HCO3 ABG Hemoglobin 11.5 L ABG Oxyhemoglobin ABG Sodium 124.1 L ABG Potassium 4.6 H ABG Chloride ABG Glucose 159 H Carboxyhemoglobin Sodium Potassium Chloride Carbon Dioxide BUN Creatinine Glucose POC Glucose 149 H 150 H Lactic Acid Calcium Phosphorus Magnesium Ferritin Direct Bilirubin AST ALT Alkaline Phosphatase Lactate Dehydrogenase Total Creatine Kinase C-Reactive Protein Total Protein Albumin Triglycerides Arterial Blood Glucose 159 H Arterial Blood Ionized Calcium 4.2 L Urine Creatinine Urine Chloride Vancomycin Trough Coronavirus (PCR) Crossmatch 06/25/20 06/25/20 06/25/20 16:27 16:35 17:27 WBC RBC Hgb Hct MCHC RDW Plt Count Lymph % (Auto) [place] % (Auto) Lymph # (Auto) [place] # (Auto) Eos # (Auto) Seg Neutrophils % Seg Neuts % (Manual) Lymphocytes % (Manual) Monocytes % (Manual) Basophils % (Manual) Nucleated RBC % Seg Neutrophils # Seg Neutrophils # Man Lymphocytes # (Manual) Monocytes # (Manual) Eosinophils # (Manual) Basophils # (Manual) PT INR APTT D-Dimer Heparin Anti-Xa Level < 0.10 L ABG pH POC ABG pCO2 POC ABG pO2 ABG pO2 ABG HCO3 ABG Hemoglobin ABG Oxyhemoglobin ABG Sodium ABG Potassium ABG Chloride ABG Glucose Carboxyhemoglobin Sodium Potassium Chloride Carbon Dioxide BUN Creatinine Glucose POC Glucose 143 H 156 H Lactic Acid Calcium Phosphorus Magnesium Ferritin Direct Bilirubin AST ALT Alkaline Phosphatase Lactate Dehydrogenase Total Creatine Kinase C-Reactive Protein Total Protein Albumin Triglycerides Arterial Blood Glucose Arterial Blood Ionized Calcium Urine Creatinine Urine Chloride Vancomycin Trough Coronavirus (PCR) Crossmatch 06/25/20 06/25/20 06/25/20 20:00 20:55 23:10 WBC 32.7 H RBC 3.06 L Hgb 9.0 L 9.5 L Hct 26.7 L 28.6 L MCHC RDW Plt Count Lymph % (Auto) [place] % (Auto) Lymph # (Auto) [place] # (Auto) Eos # (Auto) Seg Neutrophils % Seg Neuts % (Manual) Lymphocytes % (Manual) 2.0 L Monocytes % (Manual) Basophils % (Manual) Nucleated RBC % Seg Neutrophils # Seg Neutrophils # Man 30.7 H Lymphocytes # (Manual) 0.7 L Monocytes # (Manual) 1.3 H Eosinophils # (Manual) Basophils # (Manual) PT 17.7 H INR 1.47 H APTT 65.8 H* D-Dimer Heparin Anti-Xa Level ABG pH POC ABG pCO2 POC ABG pO2 ABG pO2 ABG HCO3 ABG Hemoglobin ABG Oxyhemoglobin ABG Sodium ABG Potassium ABG Chloride ABG Glucose Carboxyhemoglobin Sodium Potassium Chloride Carbon Dioxide BUN Creatinine Glucose POC Glucose Lactic Acid Calcium Phosphorus Magnesium Ferritin Direct Bilirubin AST ALT Alkaline Phosphatase Lactate Dehydrogenase Total Creatine Kinase C-Reactive Protein Total Protein Albumin Triglycerides Arterial Blood Glucose Arterial Blood Ionized Calcium Urine Creatinine Urine Chloride Vancomycin Trough Coronavirus (PCR) Crossmatch 06/25/20 06/26/20 06/26/20 23:14 01:30 03:25 WBC RBC Hgb Hct MCHC RDW Plt Count Lymph % (Auto) [place] % (Auto) Lymph # (Auto) [place] # (Auto) Eos # (Auto) Seg Neutrophils % Seg Neuts % (Manual) Lymphocytes % (Manual) Monocytes % (Manual) Basophils % (Manual) Nucleated RBC % Seg Neutrophils # Seg Neutrophils # Man Lymphocytes # (Manual) Monocytes # (Manual) Eosinophils # (Manual) Basophils # (Manual) PT INR APTT D-Dimer Heparin Anti-Xa Level < 0.10 L ABG pH POC ABG pCO2 POC ABG pO2 ABG pO2 ABG HCO3 ABG Hemoglobin 11.8 L ABG Oxyhemoglobin ABG Sodium 127.1 L ABG Potassium 5.4 H ABG Chloride ABG Glucose 155 H Carboxyhemoglobin 0.3 L Sodium Potassium Chloride Carbon Dioxide BUN Creatinine Glucose POC Glucose 148 H Lactic Acid Calcium Phosphorus Magnesium Ferritin Direct Bilirubin AST ALT Alkaline Phosphatase Lactate Dehydrogenase Total Creatine Kinase C-Reactive Protein Total Protein Albumin Triglycerides Arterial Blood Glucose 155 H Arterial Blood Ionized Calcium 4.2 L Urine Creatinine Urine Chloride Vancomycin Trough Coronavirus (PCR) Crossmatch 06/26/20 06/26/20 06/26/20 03:59 05:14 05:47 WBC 36.5 H RBC 3.26 L Hgb 9.7 L Hct 28.2 L MCHC RDW Plt Count Lymph % (Auto) [place] % (Auto) Lymph # (Auto) [place] # (Auto) Eos # (Auto) Seg Neutrophils % Seg Neuts % (Manual) 92.0 H Lymphocytes % (Manual) 4.0 L Monocytes % (Manual) Basophils % (Manual) Nucleated RBC % Seg Neutrophils # Seg Neutrophils # Man 33.6 H Lymphocytes # (Manual) Monocytes # (Manual) Eosinophils # (Manual) Basophils # (Manual) PT INR APTT D-Dimer Heparin Anti-Xa Level ABG pH POC ABG pCO2 POC ABG pO2 ABG pO2 ABG HCO3 ABG Hemoglobin ABG Oxyhemoglobin ABG Sodium ABG Potassium ABG Chloride ABG Glucose Carboxyhemoglobin Sodium Potassium 5.9 H Chloride Carbon Dioxide 20 L BUN 144 H Creatinine 6.4 H Glucose 149 H POC Glucose 128 H Lactic Acid Calcium 7.6 L Phosphorus Magnesium Ferritin Direct Bilirubin AST ALT Alkaline Phosphatase Lactate Dehydrogenase Total Creatine Kinase C-Reactive Protein Total Protein Albumin Triglycerides Arterial Blood Glucose Arterial Blood Ionized Calcium Urine Creatinine Urine Chloride Vancomycin Trough Coronavirus (PCR) Crossmatch 06/26/20 06/26/20 06/26/20 05:47 12:47 17:42 WBC RBC Hgb Hct MCHC RDW Plt Count Lymph % (Auto) [place] % (Auto) Lymph # (Auto) [place] # (Auto) Eos # (Auto) Seg Neutrophils % Seg Neuts % (Manual) Lymphocytes % (Manual) Monocytes % (Manual) Basophils % (Manual) Nucleated RBC % Seg Neutrophils # Seg Neutrophils # Man Lymphocytes # (Manual) Monocytes # (Manual) Eosinophils # (Manual) Basophils # (Manual) PT 17.4 H INR 1.44 H APTT D-Dimer Heparin Anti-Xa Level ABG pH POC ABG pCO2 POC ABG pO2 ABG pO2 ABG HCO3 ABG Hemoglobin ABG Oxyhemoglobin ABG Sodium ABG Potassium ABG Chloride ABG Glucose Carboxyhemoglobin Sodium Potassium Chloride Carbon Dioxide BUN Creatinine Glucose POC Glucose 124 H 127 H Lactic Acid Calcium Phosphorus Magnesium Ferritin Direct Bilirubin AST ALT Alkaline Phosphatase Lactate Dehydrogenase Total Creatine Kinase C-Reactive Protein Total Protein Albumin Triglycerides Arterial Blood Glucose Arterial Blood Ionized Calcium Urine Creatinine Urine Chloride Vancomycin Trough Coronavirus (PCR) Crossmatch 06/26/20 06/27/20 06/27/20 23:30 03:32 04:00 WBC RBC Hgb 8.7 L Hct 26.4 L MCHC RDW Plt Count Lymph % (Auto) [place] % (Auto) Lymph # (Auto) [place] # (Auto) Eos # (Auto) Seg Neutrophils % Seg Neuts % (Manual) Lymphocytes % (Manual) Monocytes % (Manual) Basophils % (Manual) Nucleated RBC % Seg Neutrophils # Seg Neutrophils # Man Lymphocytes # (Manual) Monocytes # (Manual) Eosinophils # (Manual) Basophils # (Manual) PT INR APTT D-Dimer Heparin Anti-Xa Level ABG pH 7.298 L POC ABG pCO2 POC ABG pO2 ABG pO2 ABG HCO3 ABG Hemoglobin 9.6 L ABG Oxyhemoglobin ABG Sodium 124.4 L ABG Potassium 6.6 H ABG Chloride ABG Glucose 136 H Carboxyhemoglobin Sodium Potassium Chloride Carbon Dioxide BUN Creatinine Glucose POC Glucose 123 H Lactic Acid Calcium Phosphorus Magnesium Ferritin Direct Bilirubin AST ALT Alkaline Phosphatase Lactate Dehydrogenase Total Creatine Kinase C-Reactive Protein Total Protein Albumin Triglycerides Arterial Blood Glucose 136 H Arterial Blood Ionized Calcium 4.1 L Urine Creatinine Urine Chloride Vancomycin Trough Coronavirus (PCR) Crossmatch 06/27/20 06/27/20 06/27/20 05:26 10:14 11:58 WBC RBC Hgb Hct MCHC RDW Plt Count Lymph % (Auto) [place] % (Auto) Lymph # (Auto) [place] # (Auto) Eos # (Auto) Seg Neutrophils % Seg Neuts % (Manual) Lymphocytes % (Manual) Monocytes % (Manual) Basophils % (Manual) Nucleated RBC % Seg Neutrophils # Seg Neutrophils # Man Lymphocytes # (Manual) Monocytes # (Manual) Eosinophils # (Manual) Basophils # (Manual) PT INR APTT D-Dimer Heparin Anti-Xa Level ABG pH POC ABG pCO2 POC ABG pO2 ABG pO2 ABG HCO3 ABG Hemoglobin ABG Oxyhemoglobin ABG Sodium ABG Potassium ABG Chloride ABG Glucose Carboxyhemoglobin Sodium 136 L Potassium 7.0 H* Chloride 97.8 L Carbon Dioxide BUN 172 H Creatinine 7.4 H Glucose 129 H POC Glucose 124 H 115 H Lactic Acid Calcium 7.6 L Phosphorus Magnesium Ferritin Direct Bilirubin AST ALT Alkaline Phosphatase Lactate Dehydrogenase Total Creatine Kinase C-Reactive Protein Total Protein Albumin Triglycerides Arterial Blood Glucose Arterial Blood Ionized Calcium Urine Creatinine Urine Chloride Vancomycin Trough Coronavirus (PCR) Crossmatch 06/27/20 06/27/20 06/27/20 17:32 18:30 23:24 WBC RBC Hgb Hct MCHC RDW Plt Count Lymph % (Auto) [place] % (Auto) Lymph # (Auto) [place] # (Auto) Eos # (Auto) Seg Neutrophils % Seg Neuts % (Manual) Lymphocytes % (Manual) Monocytes % (Manual) Basophils % (Manual) Nucleated RBC % Seg Neutrophils # Seg Neutrophils # Man Lymphocytes # (Manual) Monocytes # (Manual) Eosinophils # (Manual) Basophils # (Manual) PT INR APTT D-Dimer Heparin Anti-Xa Level ABG pH POC ABG pCO2 POC ABG pO2 ABG pO2 ABG HCO3 ABG Hemoglobin ABG Oxyhemoglobin ABG Sodium ABG Potassium ABG Chloride ABG Glucose Carboxyhemoglobin Sodium Potassium 7.3 H* Chloride Carbon Dioxide BUN Creatinine Glucose POC Glucose 122 H 116 H Lactic Acid Calcium Phosphorus Magnesium Ferritin Direct Bilirubin AST ALT Alkaline Phosphatase Lactate Dehydrogenase Total Creatine Kinase C-Reactive Protein Total Protein Albumin Triglycerides Arterial Blood Glucose Arterial Blood Ionized Calcium Urine Creatinine Urine Chloride Vancomycin Trough Coronavirus (PCR) Crossmatch 06/28/20 06/28/20 06/28/20 00:00 02:16 05:37 WBC RBC Hgb Hct MCHC RDW Plt Count Lymph % (Auto) [place] % (Auto) Lymph # (Auto) [place] # (Auto) Eos # (Auto) Seg Neutrophils % Seg Neuts % (Manual) Lymphocytes % (Manual) Monocytes % (Manual) Basophils % (Manual) Nucleated RBC % Seg Neutrophils # Seg Neutrophils # Man Lymphocytes # (Manual) Monocytes # (Manual) Eosinophils # (Manual) Basophils # (Manual) PT INR APTT D-Dimer Heparin Anti-Xa Level ABG pH POC ABG pCO2 POC ABG pO2 79.0 L ABG pO2 ABG HCO3 ABG Hemoglobin 11.7 L ABG Oxyhemoglobin ABG Sodium 128.1 L ABG Potassium 6.6 H ABG Chloride ABG Glucose 124 H Carboxyhemoglobin Sodium Potassium 7.3 H* Chloride Carbon Dioxide BUN Creatinine Glucose POC Glucose 115 H Lactic Acid Calcium Phosphorus Magnesium Ferritin Direct Bilirubin AST ALT Alkaline Phosphatase Lactate Dehydrogenase Total Creatine Kinase C-Reactive Protein Total Protein Albumin Triglycerides Arterial Blood Glucose 124 H Arterial Blood Ionized Calcium 4.2 L Urine Creatinine Urine Chloride Vancomycin Trough Coronavirus (PCR) Crossmatch 06/28/20 06/28/20 06/28/20 10:03 10:03 11:51 WBC 33.6 H RBC 3.03 L Hgb 8.9 L Hct 27.0 L MCHC RDW Plt Count Lymph % (Auto) [place] % (Auto) Lymph # (Auto) [place] # (Auto) Eos # (Auto) Seg Neutrophils % Seg Neuts % (Manual) Lymphocytes % (Manual) Monocytes % (Manual) Basophils % (Manual) Nucleated RBC % Seg Neutrophils # Seg Neutrophils # Man Lymphocytes # (Manual) Monocytes # (Manual) Eosinophils # (Manual) Basophils # (Manual) PT INR APTT D-Dimer Heparin Anti-Xa Level ABG pH POC ABG pCO2 POC ABG pO2 ABG pO2 ABG HCO3 ABG Hemoglobin ABG Oxyhemoglobin ABG Sodium ABG Potassium ABG Chloride ABG Glucose Carboxyhemoglobin Sodium 136 L Potassium 6.5 H* Chloride Carbon Dioxide 20 L BUN 129 H Creatinine 5.8 H Glucose 113 H POC Glucose 107 H Lactic Acid Calcium 7.6 L Phosphorus Magnesium Ferritin Direct Bilirubin AST ALT Alkaline Phosphatase Lactate Dehydrogenase Total Creatine Kinase C-Reactive Protein Total Protein Albumin Triglycerides Arterial Blood Glucose Arterial Blood Ionized Calcium Urine Creatinine Urine Chloride Vancomycin Trough Coronavirus (PCR) Crossmatch 06/28/20 06/28/20 06/29/20 17:45 Unknown 03:15 WBC RBC Hgb Hct MCHC RDW Plt Count Lymph % (Auto) [place] % (Auto) Lymph # (Auto) [place] # (Auto) Eos # (Auto) Seg Neutrophils % Seg Neuts % (Manual) Lymphocytes % (Manual) Monocytes % (Manual) Basophils % (Manual) Nucleated RBC % Seg Neutrophils # Seg Neutrophils # Man Lymphocytes # (Manual) Monocytes # (Manual) Eosinophils # (Manual) Basophils # (Manual) PT INR APTT D-Dimer Heparin Anti-Xa Level ABG pH POC ABG pCO2 POC ABG pO2 ABG pO2 ABG HCO3 ABG Hemoglobin 7.8 L ABG Oxyhemoglobin ABG Sodium 127.4 L ABG Potassium 5.5 H ABG Chloride 97.0 L ABG Glucose 96 H Carboxyhemoglobin Sodium Potassium 5.4 H Chloride Carbon Dioxide BUN Creatinine Glucose POC Glucose 117 H Lactic Acid Calcium Phosphorus Magnesium Ferritin Direct Bilirubin AST ALT Alkaline Phosphatase Lactate Dehydrogenase Total Creatine Kinase C-Reactive Protein Total Protein Albumin Triglycerides Arterial Blood Glucose 96 H Arterial Blood Ionized Calcium 4.0 L Urine Creatinine Urine Chloride Vancomycin Trough Coronavirus (PCR) Crossmatch 06/29/20 06/29/20 06/29/20 03:45 Unknown Unknown WBC RBC Hgb Hct MCHC RDW Plt Count Lymph % (Auto) [place] % (Auto) Lymph # (Auto) [place] # (Auto) Eos # (Auto) Seg Neutrophils % Seg Neuts % (Manual) Lymphocytes % (Manual) Monocytes % (Manual) Basophils % (Manual) Nucleated RBC % Seg Neutrophils # Seg Neutrophils # Man Lymphocytes # (Manual) Monocytes # (Manual) Eosinophils # (Manual) Basophils # (Manual) PT INR APTT D-Dimer Heparin Anti-Xa Level ABG pH POC ABG pCO2 POC ABG pO2 ABG pO2 ABG HCO3 ABG Hemoglobin ABG Oxyhemoglobin ABG Sodium ABG Potassium ABG Chloride ABG Glucose Carboxyhemoglobin Sodium 135 L Potassium 6.0 H 6.1 H* Chloride 94.8 L Carbon Dioxide BUN 109 H 114 H Creatinine 5.5 H Glucose POC Glucose Lactic Acid Calcium 7.4 L Phosphorus Magnesium Ferritin Direct Bilirubin AST 47 H ALT Alkaline Phosphatase Lactate Dehydrogenase Total Creatine Kinase C-Reactive Protein Total Protein 4.9 L Albumin 2.2 L Triglycerides Arterial Blood Glucose Arterial Blood Ionized Calcium Urine Creatinine Urine Chloride Vancomycin Trough Coronavirus (PCR) Crossmatch 06/29/20 06/29/20 06/30/20 Unknown Unknown 03:32 WBC 20.7 H RBC 2.57 L Hgb 7.6 L Hct 23.0 L MCHC RDW Plt Count Lymph % (Auto) [place] % (Auto) Lymph # (Auto) [place] # (Auto) Eos # (Auto) Seg Neutrophils % Seg Neuts % (Manual) Lymphocytes % (Manual) Monocytes % (Manual) Basophils % (Manual) Nucleated RBC % Seg Neutrophils # Seg Neutrophils # Man Lymphocytes # (Manual) Monocytes # (Manual) Eosinophils # (Manual) Basophils # (Manual) PT INR APTT D-Dimer Heparin Anti-Xa Level ABG pH POC ABG pCO2 POC ABG pO2 ABG pO2 ABG HCO3 ABG Hemoglobin 11.4 L ABG Oxyhemoglobin ABG Sodium 130.1 L ABG Potassium 5.0 H ABG Chloride ABG Glucose Carboxyhemoglobin Sodium Potassium Chloride Carbon Dioxide BUN Creatinine Glucose POC Glucose Lactic Acid Calcium Phosphorus Magnesium Ferritin Direct Bilirubin AST ALT Alkaline Phosphatase Lactate Dehydrogenase Total Creatine Kinase 618 H C-Reactive Protein Total Protein Albumin Triglycerides Arterial Blood Glucose Arterial Blood Ionized Calcium 3.9 L Urine Creatinine Urine Chloride Vancomycin Trough Coronavirus (PCR) Crossmatch 06/30/20 06/30/20 06/30/20 03:50 03:50 11:39 WBC 13.1 H RBC Hgb Hct MCHC RDW Plt Count Lymph % (Auto) [place] % (Auto) Lymph # (Auto) [place] # (Auto) Eos # (Auto) Seg Neutrophils % Seg Neuts % (Manual) 95.0 H Lymphocytes % (Manual) 3.0 L Monocytes % (Manual) Basophils % (Manual) Nucleated RBC % Seg Neutrophils # Seg Neutrophils # Man 12.4 H Lymphocytes # (Manual) 0.4 L Monocytes # (Manual) Eosinophils # (Manual) Basophils # (Manual) PT INR APTT D-Dimer Heparin Anti-Xa Level ABG pH POC ABG pCO2 POC ABG pO2 ABG pO2 ABG HCO3 ABG Hemoglobin ABG Oxyhemoglobin ABG Sodium ABG Potassium ABG Chloride ABG Glucose Carboxyhemoglobin Sodium 135 L Potassium 5.4 H D Chloride 93.6 L Carbon Dioxide BUN 85 H Creatinine 4.6 H Glucose POC Glucose 111 H Lactic Acid Calcium 7.1 L Phosphorus 9.40 H Magnesium Ferritin Direct Bilirubin AST ALT Alkaline Phosphatase Lactate Dehydrogenase Total Creatine Kinase C-Reactive Protein Total Protein Albumin Triglycerides Arterial Blood Glucose Arterial Blood Ionized Calcium Urine Creatinine Urine Chloride Vancomycin Trough Coronavirus (PCR) Crossmatch 06/30/20 06/30/20 07/01/20 13:12 Unknown 03:19 WBC RBC Hgb 7.8 L D Hct 23.2 L D MCHC RDW Plt Count Lymph % (Auto) [place] % (Auto) Lymph # (Auto) [place] # (Auto) Eos # (Auto) Seg Neutrophils % Seg Neuts % (Manual) Lymphocytes % (Manual) Monocytes % (Manual) Basophils % (Manual) Nucleated RBC % Seg Neutrophils # Seg Neutrophils # Man Lymphocytes # (Manual) Monocytes # (Manual) Eosinophils # (Manual) Basophils # (Manual) PT INR APTT D-Dimer Heparin Anti-Xa Level ABG pH 7.461 H POC ABG pCO2 POC ABG pO2 77.2 L ABG pO2 ABG HCO3 ABG Hemoglobin 6.9 L ABG Oxyhemoglobin ABG Sodium 128.5 L ABG Potassium ABG Chloride 97.0 L ABG Glucose Carboxyhemoglobin Sodium Potassium Chloride Carbon Dioxide BUN Creatinine Glucose POC Glucose Lactic Acid Calcium Phosphorus Magnesium Ferritin Direct Bilirubin AST ALT Alkaline Phosphatase Lactate Dehydrogenase Total Creatine Kinase C-Reactive Protein Total Protein Albumin Triglycerides Arterial Blood Glucose Arterial Blood Ionized Calcium 3.7 L Urine Creatinine Urine Chloride Vancomycin Trough Coronavirus (PCR) Positive A Crossmatch 07/01/20 07/01/20 07/01/20 06:00 06:00 11:04 WBC 16.7 H RBC 2.16 L Hgb 6.4 L Hct 19.2 L* MCHC RDW Plt Count Lymph % (Auto) [place] % (Auto) Lymph # (Auto) [place] # (Auto) Eos # (Auto) Seg Neutrophils % Seg Neuts % (Manual) Lymphocytes % (Manual) Monocytes % (Manual) Basophils % (Manual) Nucleated RBC % Seg Neutrophils # Seg Neutrophils # Man Lymphocytes # (Manual) Monocytes # (Manual) Eosinophils # (Manual) Basophils # (Manual) PT INR APTT D-Dimer Heparin Anti-Xa Level ABG pH POC ABG pCO2 POC ABG pO2 ABG pO2 ABG HCO3 ABG Hemoglobin ABG Oxyhemoglobin ABG Sodium ABG Potassium ABG Chloride ABG Glucose Carboxyhemoglobin Sodium 136 L Potassium Chloride 95.8 L Carbon Dioxide BUN 72 H Creatinine 4.3 H Glucose POC Glucose Lactic Acid Calcium 6.7 L Phosphorus Magnesium Ferritin Direct Bilirubin AST ALT Alkaline Phosphatase Lactate Dehydrogenase Total Creatine Kinase C-Reactive Protein Total Protein Albumin Triglycerides 250 H Arterial Blood Glucose Arterial Blood Ionized Calcium Urine Creatinine Urine Chloride Vancomycin Trough Coronavirus (PCR) Crossmatch See Detail 07/02/20 07/02/20 07/02/20 04:44 06:00 11:33 WBC 14.6 H RBC 2.47 L Hgb 7.4 L Hct 21.8 L MCHC RDW Plt Count Lymph % (Auto) [place] % (Auto) Lymph # (Auto) [place] # (Auto) Eos # (Auto) Seg Neutrophils % Seg Neuts % (Manual) Lymphocytes % (Manual) Monocytes % (Manual) Basophils % (Manual) Nucleated RBC % Seg Neutrophils # Seg Neutrophils # Man Lymphocytes # (Manual) Monocytes # (Manual) Eosinophils # (Manual) Basophils # (Manual) PT INR APTT D-Dimer Heparin Anti-Xa Level ABG pH 7.457 H POC ABG pCO2 POC ABG pO2 79.4 L ABG pO2 ABG HCO3 ABG Hemoglobin 8.5 L ABG Oxyhemoglobin ABG Sodium 128.4 L ABG Potassium ABG Chloride 97.0 L ABG Glucose 100 H Carboxyhemoglobin Sodium 133 L Potassium 5.2 H Chloride 93.3 L Carbon Dioxide BUN 66 H Creatinine 4.1 H Glucose 102 H POC Glucose Lactic Acid Calcium 7.2 L Phosphorus Magnesium Ferritin Direct Bilirubin AST ALT Alkaline Phosphatase Lactate Dehydrogenase Total Creatine Kinase C-Reactive Protein Total Protein Albumin Triglycerides Arterial Blood Glucose 100 H Arterial Blood Ionized Calcium 3.9 L Urine Creatinine Urine Chloride Vancomycin Trough Coronavirus (PCR) Crossmatch 07/02/20 07/03/20 07/03/20 11:33 03:54 09:15 WBC 16.6 H RBC 2.44 L Hgb 7.3 L Hct 21.4 L MCHC RDW Plt Count Lymph % (Auto) [place] % (Auto) Lymph # (Auto) [place] # (Auto) Eos # (Auto) Seg Neutrophils % Seg Neuts % (Manual) Lymphocytes % (Manual) Monocytes % (Manual) Basophils % (Manual) Nucleated RBC % Seg Neutrophils # Seg Neutrophils # Man Lymphocytes # (Manual) Monocytes # (Manual) Eosinophils # (Manual) Basophils # (Manual) PT INR APTT D-Dimer Heparin Anti-Xa Level ABG pH POC ABG pCO2 POC ABG pO2 66.1 L ABG pO2 ABG HCO3 ABG Hemoglobin 8.0 L ABG Oxyhemoglobin ABG Sodium 124.6 L ABG Potassium 5.5 H ABG Chloride 96.0 L ABG Glucose 111 H Carboxyhemoglobin Sodium Potassium Chloride Carbon Dioxide BUN Creatinine Glucose POC Glucose Lactic Acid Calcium Phosphorus Magnesium Ferritin Direct Bilirubin 0.7 H AST 94 H ALT 60 H Alkaline Phosphatase Lactate Dehydrogenase Total Creatine Kinase C-Reactive Protein Total Protein 4.4 L Albumin 1.9 L Triglycerides Arterial Blood Glucose 111 H Arterial Blood Ionized Calcium 3.8 L Urine Creatinine Urine Chloride Vancomycin Trough Coronavirus (PCR) Crossmatch 07/03/20 07/03/20 07/03/20 09:15 10:10 14:50 WBC RBC Hgb Hct MCHC RDW Plt Count Lymph % (Auto) [place] % (Auto) Lymph # (Auto) [place] # (Auto) Eos # (Auto) Seg Neutrophils % Seg Neuts % (Manual) Lymphocytes % (Manual) Monocytes % (Manual) Basophils % (Manual) Nucleated RBC % Seg Neutrophils # Seg Neutrophils # Man Lymphocytes # (Manual) Monocytes # (Manual) Eosinophils # (Manual) Basophils # (Manual) PT INR APTT D-Dimer 6608.00 H Heparin Anti-Xa Level ABG pH POC ABG pCO2 POC ABG pO2 ABG pO2 ABG HCO3 ABG Hemoglobin ABG Oxyhemoglobin ABG Sodium ABG Potassium ABG Chloride ABG Glucose Carboxyhemoglobin Sodium 133 L Potassium 6.2 H* Chloride 93.1 L Carbon Dioxide BUN 89 H Creatinine 5.1 H Glucose POC Glucose Lactic Acid Calcium 7.0 L Phosphorus Magnesium Ferritin Direct Bilirubin AST ALT Alkaline Phosphatase Lactate Dehydrogenase Total Creatine Kinase C-Reactive Protein Total Protein Albumin Triglycerides Arterial Blood Glucose Arterial Blood Ionized Calcium Urine Creatinine Urine Chloride Vancomycin Trough Coronavirus (PCR) Positive A Crossmatch 07/03/20 07/03/20 07/03/20 14:50 14:50 14:50 WBC RBC Hgb Hct MCHC RDW Plt Count Lymph % (Auto) [place] % (Auto) Lymph # (Auto) [place] # (Auto) Eos # (Auto) Seg Neutrophils % Seg Neuts % (Manual) Lymphocytes % (Manual) Monocytes % (Manual) Basophils % (Manual) Nucleated RBC % Seg Neutrophils # Seg Neutrophils # Man Lymphocytes # (Manual) Monocytes # (Manual) Eosinophils # (Manual) Basophils # (Manual) PT INR APTT D-Dimer Heparin Anti-Xa Level ABG pH POC ABG pCO2 POC ABG pO2 ABG pO2 ABG HCO3 ABG Hemoglobin ABG Oxyhemoglobin ABG Sodium ABG Potassium ABG Chloride ABG Glucose Carboxyhemoglobin Sodium Potassium Chloride Carbon Dioxide BUN Creatinine Glucose POC Glucose Lactic Acid < 0.20 L Calcium Phosphorus Magnesium Ferritin 1171.0 H Direct Bilirubin AST ALT Alkaline Phosphatase Lactate Dehydrogenase 525 H Total Creatine Kinase C-Reactive Protein 31.50 H Total Protein Albumin Triglycerides Arterial Blood Glucose Arterial Blood Ionized Calcium Urine Creatinine Urine Chloride Vancomycin Trough Coronavirus (PCR) Crossmatch 07/03/20 07/04/20 07/04/20 16:47 05:20 05:20 WBC 11.8 H RBC 2.32 L Hgb 6.7 L Hct 20.8 L MCHC RDW Plt Count Lymph % (Auto) 2.6 L [place] % (Auto) Lymph # (Auto) 0.3 L [place] # (Auto) Eos # (Auto) Seg Neutrophils % Seg Neuts % (Manual) Lymphocytes % (Manual) Monocytes % (Manual) Basophils % (Manual) Nucleated RBC % Seg Neutrophils # 11.0 H Seg Neutrophils # Man Lymphocytes # (Manual) Monocytes # (Manual) Eosinophils # (Manual) Basophils # (Manual) PT INR APTT D-Dimer Heparin Anti-Xa Level ABG pH POC ABG pCO2 POC ABG pO2 ABG pO2 ABG HCO3 ABG Hemoglobin ABG Oxyhemoglobin ABG Sodium ABG Potassium ABG Chloride ABG Glucose Carboxyhemoglobin Sodium Potassium 6.0 H Chloride 97.8 L Carbon Dioxide BUN 75 H Creatinine 4.5 H Glucose 121 H POC Glucose 107 H Lactic Acid Calcium 7.9 L Phosphorus Magnesium Ferritin Direct Bilirubin AST ALT Alkaline Phosphatase Lactate Dehydrogenase Total Creatine Kinase C-Reactive Protein Total Protein Albumin Triglycerides Arterial Blood Glucose Arterial Blood Ionized Calcium Urine Creatinine Urine Chloride Vancomycin Trough Coronavirus (PCR) Crossmatch 07/04/20 07/04/20 07/04/20 05:20 05:50 09:25 WBC RBC Hgb Hct MCHC RDW Plt Count Lymph % (Auto) [place] % (Auto) Lymph # (Auto) [place] # (Auto) Eos # (Auto) Seg Neutrophils % Seg Neuts % (Manual) Lymphocytes % (Manual) Monocytes % (Manual) Basophils % (Manual) Nucleated RBC % Seg Neutrophils # Seg Neutrophils # Man Lymphocytes # (Manual) Monocytes # (Manual) Eosinophils # (Manual) Basophils # (Manual) PT INR APTT D-Dimer Heparin Anti-Xa Level ABG pH 7.324 L POC ABG pCO2 POC ABG pO2 ABG pO2 98.9 H ABG HCO3 26.8 H ABG Hemoglobin < 5.1 L ABG Oxyhemoglobin ABG Sodium ABG Potassium ABG Chloride ABG Glucose Carboxyhemoglobin Sodium Potassium Chloride Carbon Dioxide BUN Creatinine Glucose POC Glucose 114 H Lactic Acid Calcium Phosphorus Magnesium Ferritin Direct Bilirubin AST ALT Alkaline Phosphatase Lactate Dehydrogenase Total Creatine Kinase C-Reactive Protein Total Protein Albumin Triglycerides Arterial Blood Glucose Arterial Blood Ionized Calcium Urine Creatinine Urine Chloride Vancomycin Trough Coronavirus (PCR) Crossmatch See Detail 07/04/20 07/04/20 07/04/20 12:33 17:41 23:04 WBC RBC Hgb Hct MCHC RDW Plt Count Lymph % (Auto) [place] % (Auto) Lymph # (Auto) [place] # (Auto) Eos # (Auto) Seg Neutrophils % Seg Neuts % (Manual) Lymphocytes % (Manual) Monocytes % (Manual) Basophils % (Manual) Nucleated RBC % Seg Neutrophils # Seg Neutrophils # Man Lymphocytes # (Manual) Monocytes # (Manual) Eosinophils # (Manual) Basophils # (Manual) PT INR APTT D-Dimer Heparin Anti-Xa Level ABG pH POC ABG pCO2 POC ABG pO2 ABG pO2 ABG HCO3 ABG Hemoglobin ABG Oxyhemoglobin ABG Sodium ABG Potassium ABG Chloride ABG Glucose Carboxyhemoglobin Sodium Potassium Chloride Carbon Dioxide BUN Creatinine Glucose POC Glucose 119 H 109 H 116 H Lactic Acid Calcium Phosphorus Magnesium Ferritin Direct Bilirubin AST ALT Alkaline Phosphatase Lactate Dehydrogenase Total Creatine Kinase C-Reactive Protein Total Protein Albumin Triglycerides Arterial Blood Glucose Arterial Blood Ionized Calcium Urine Creatinine Urine Chloride Vancomycin Trough Coronavirus (PCR) Crossmatch 07/05/20 07/05/20 07/05/20 04:30 08:21 08:21 WBC RBC 2.77 L Hgb 7.9 L Hct 23.9 L MCHC RDW 16.7 H Plt Count Lymph % (Auto) 7.5 L [place] % (Auto) Lymph # (Auto) 0.7 L [place] # (Auto) Eos # (Auto) Seg Neutrophils % 85.8 H Seg Neuts % (Manual) Lymphocytes % (Manual) Monocytes % (Manual) Basophils % (Manual) Nucleated RBC % Seg Neutrophils # 7.8 H Seg Neutrophils # Man Lymphocytes # (Manual) Monocytes # (Manual) Eosinophils # (Manual) Basophils # (Manual) PT INR APTT D-Dimer Heparin Anti-Xa Level ABG pH 7.295 L POC ABG pCO2 POC ABG pO2 ABG pO2 151.9 H ABG HCO3 26.8 H ABG Hemoglobin 7.3 L ABG Oxyhemoglobin ABG Sodium ABG Potassium ABG Chloride ABG Glucose Carboxyhemoglobin Sodium Potassium Chloride Carbon Dioxide BUN Creatinine Glucose POC Glucose Lactic Acid Calcium Phosphorus Magnesium Ferritin Direct Bilirubin AST ALT Alkaline Phosphatase Lactate Dehydrogenase Total Creatine Kinase C-Reactive Protein Total Protein Albumin Triglycerides 258 H Arterial Blood Glucose Arterial Blood Ionized Calcium Urine Creatinine Urine Chloride Vancomycin Trough Coronavirus (PCR) Crossmatch 07/05/20 07/05/20 07/06/20 08:21 12:12 04:29 WBC RBC Hgb Hct MCHC RDW Plt Count Lymph % (Auto) [place] % (Auto) Lymph # (Auto) [place] # (Auto) Eos # (Auto) Seg Neutrophils % Seg Neuts % (Manual) Lymphocytes % (Manual) Monocytes % (Manual) Basophils % (Manual) Nucleated RBC % Seg Neutrophils # Seg Neutrophils # Man Lymphocytes # (Manual) Monocytes # (Manual) Eosinophils # (Manual) Basophils # (Manual) PT INR APTT D-Dimer Heparin Anti-Xa Level ABG pH 7.291 L POC ABG pCO2 51.3 H POC ABG pO2 ABG pO2 ABG HCO3 ABG Hemoglobin 8.5 L ABG Oxyhemoglobin ABG Sodium 129.6 L ABG Potassium 4.8 H ABG Chloride 96.0 L ABG Glucose Carboxyhemoglobin Sodium 133 L Potassium 5.6 H Chloride 94.4 L Carbon Dioxide BUN 80 H Creatinine 4.2 H Glucose 114 H POC Glucose 106 H Lactic Acid Calcium 7.6 L Phosphorus Magnesium Ferritin Direct Bilirubin 0.5 H AST 75 H ALT 86 H Alkaline Phosphatase Lactate Dehydrogenase Total Creatine Kinase C-Reactive Protein Total Protein 5.6 L D Albumin 1.9 L Triglycerides Arterial Blood Glucose Arterial Blood Ionized Calcium 4.2 L Urine Creatinine Urine Chloride Vancomycin Trough Coronavirus (PCR) Crossmatch 07/06/20 07/06/20 07/06/20 11:35 11:35 12:16 WBC RBC 2.54 L Hgb 7.5 L Hct 21.5 L MCHC 35 H RDW 15.7 H Plt Count Lymph % (Auto) [place] % (Auto) Lymph # (Auto) [place] # (Auto) Eos # (Auto) Seg Neutrophils % Seg Neuts % (Manual) Lymphocytes % (Manual) Monocytes % (Manual) Basophils % (Manual) Nucleated RBC % Seg Neutrophils # Seg Neutrophils # Man Lymphocytes # (Manual) Monocytes # (Manual) Eosinophils # (Manual) Basophils # (Manual) PT INR APTT D-Dimer Heparin Anti-Xa Level ABG pH POC ABG pCO2 POC ABG pO2 ABG pO2 ABG HCO3 ABG Hemoglobin ABG Oxyhemoglobin ABG Sodium ABG Potassium ABG Chloride ABG Glucose Carboxyhemoglobin Sodium 130 L Potassium Chloride 92.2 L Carbon Dioxide 19 L D BUN 107 H Creatinine 5.1 H Glucose 106 H POC Glucose 106 H Lactic Acid Calcium 7.5 L Phosphorus Magnesium Ferritin Direct Bilirubin AST ALT Alkaline Phosphatase Lactate Dehydrogenase Total Creatine Kinase C-Reactive Protein Total Protein Albumin Triglycerides Arterial Blood Glucose Arterial Blood Ionized Calcium Urine Creatinine Urine Chloride Vancomycin Trough Coronavirus (PCR) Crossmatch 07/06/20 07/06/20 07/06/20 17:01 21:56 23:41 WBC RBC Hgb Hct MCHC RDW Plt Count Lymph % (Auto) [place] % (Auto) Lymph # (Auto) [place] # (Auto) Eos # (Auto) Seg Neutrophils % Seg Neuts % (Manual) Lymphocytes % (Manual) Monocytes % (Manual) Basophils % (Manual) Nucleated RBC % Seg Neutrophils # Seg Neutrophils # Man Lymphocytes # (Manual) Monocytes # (Manual) Eosinophils # (Manual) Basophils # (Manual) PT INR APTT D-Dimer Heparin Anti-Xa Level ABG pH POC ABG pCO2 POC ABG pO2 ABG pO2 ABG HCO3 ABG Hemoglobin ABG Oxyhemoglobin ABG Sodium ABG Potassium ABG Chloride ABG Glucose Carboxyhemoglobin Sodium 135 L Potassium 5.1 H Chloride Carbon Dioxide BUN 73 H Creatinine 4.0 H Glucose 112 H POC Glucose 109 H 111 H Lactic Acid Calcium 7.8 L Phosphorus Magnesium Ferritin Direct Bilirubin AST ALT Alkaline Phosphatase Lactate Dehydrogenase Total Creatine Kinase C-Reactive Protein Total Protein Albumin Triglycerides Arterial Blood Glucose Arterial Blood Ionized Calcium Urine Creatinine Urine Chloride Vancomycin Trough Coronavirus (PCR) Crossmatch 07/07/20 07/07/20 07/07/20 04:18 05:04 05:29 WBC RBC 2.46 L Hgb 7.6 L Hct 21.5 L MCHC 35 H RDW 16.5 H Plt Count Lymph % (Auto) [place] % (Auto) Lymph # (Auto) [place] # (Auto) Eos # (Auto) Seg Neutrophils % Seg Neuts % (Manual) 82.0 H Lymphocytes % (Manual) Monocytes % (Manual) Basophils % (Manual) Nucleated RBC % 1.0 H Seg Neutrophils # Seg Neutrophils # Man Lymphocytes # (Manual) 1.1 L Monocytes # (Manual) Eosinophils # (Manual) Basophils # (Manual) PT INR APTT D-Dimer Heparin Anti-Xa Level ABG pH POC ABG pCO2 POC ABG pO2 79.6 L ABG pO2 ABG HCO3 ABG Hemoglobin 8.2 L ABG Oxyhemoglobin ABG Sodium 133.3 L ABG Potassium 4.7 H ABG Chloride ABG Glucose 135 H Carboxyhemoglobin Sodium Potassium Chloride Carbon Dioxide BUN Creatinine Glucose POC Glucose 112 H Lactic Acid Calcium Phosphorus Magnesium Ferritin Direct Bilirubin AST ALT Alkaline Phosphatase Lactate Dehydrogenase Total Creatine Kinase C-Reactive Protein Total Protein Albumin Triglycerides Arterial Blood Glucose 135 H Arterial Blood Ionized Calcium 4.5 L Urine Creatinine Urine Chloride Vancomycin Trough Coronavirus (PCR) Crossmatch 07/07/20 07/07/20 07/07/20 10:17 12:18 17:43 WBC RBC Hgb Hct MCHC RDW Plt Count Lymph % (Auto) [place] % (Auto) Lymph # (Auto) [place] # (Auto) Eos # (Auto) Seg Neutrophils % Seg Neuts % (Manual) Lymphocytes % (Manual) Monocytes % (Manual) Basophils % (Manual) Nucleated RBC % Seg Neutrophils # Seg Neutrophils # Man Lymphocytes # (Manual) Monocytes # (Manual) Eosinophils # (Manual) Basophils # (Manual) PT INR APTT D-Dimer Heparin Anti-Xa Level ABG pH POC ABG pCO2 POC ABG pO2 ABG pO2 ABG HCO3 ABG Hemoglobin ABG Oxyhemoglobin ABG Sodium ABG Potassium ABG Chloride ABG Glucose Carboxyhemoglobin Sodium 136 L Potassium Chloride 96.8 L Carbon Dioxide BUN 82 H Creatinine 4.3 H Glucose 129 H POC Glucose 108 H 116 H Lactic Acid Calcium 7.8 L Phosphorus Magnesium Ferritin Direct Bilirubin AST ALT Alkaline Phosphatase Lactate Dehydrogenase Total Creatine Kinase C-Reactive Protein Total Protein Albumin Triglycerides Arterial Blood Glucose Arterial Blood Ionized Calcium Urine Creatinine Urine Chloride Vancomycin Trough Coronavirus (PCR) Crossmatch 07/07/20 07/08/20 07/08/20 23:31 04:00 04:00 WBC RBC 2.52 L Hgb 7.3 L Hct 22.2 L MCHC RDW 16.6 H Plt Count Lymph % (Auto) 11.5 L [place] % (Auto) Lymph # (Auto) [place] # (Auto) Eos # (Auto) Seg Neutrophils % 78.2 H Seg Neuts % (Manual) Lymphocytes % (Manual) Monocytes % (Manual) Basophils % (Manual) Nucleated RBC % Seg Neutrophils # 8.0 H Seg Neutrophils # Man Lymphocytes # (Manual) Monocytes # (Manual) Eosinophils # (Manual) Basophils # (Manual) PT INR APTT D-Dimer Heparin Anti-Xa Level ABG pH POC ABG pCO2 POC ABG pO2 ABG pO2 ABG HCO3 ABG Hemoglobin ABG Oxyhemoglobin ABG Sodium ABG Potassium ABG Chloride ABG Glucose Carboxyhemoglobin Sodium 132 L Potassium 5.4 H Chloride 92.5 L Carbon Dioxide BUN 98 H Creatinine 4.9 H Glucose 105 H POC Glucose 117 H Lactic Acid Calcium 7.9 L Phosphorus Magnesium Ferritin Direct Bilirubin AST ALT Alkaline Phosphatase Lactate Dehydrogenase Total Creatine Kinase C-Reactive Protein Total Protein Albumin Triglycerides Arterial Blood Glucose Arterial Blood Ionized Calcium Urine Creatinine Urine Chloride Vancomycin Trough Coronavirus (PCR) Crossmatch 07/08/20 07/08/20 07/08/20 04:09 11:34 17:05 WBC RBC Hgb Hct MCHC RDW Plt Count Lymph % (Auto) [place] % (Auto) Lymph # (Auto) [place] # (Auto) Eos # (Auto) Seg Neutrophils % Seg Neuts % (Manual) Lymphocytes % (Manual) Monocytes % (Manual) Basophils % (Manual) Nucleated RBC % Seg Neutrophils # Seg Neutrophils # Man Lymphocytes # (Manual) Monocytes # (Manual) Eosinophils # (Manual) Basophils # (Manual) PT INR APTT D-Dimer Heparin Anti-Xa Level ABG pH 7.220 L POC ABG pCO2 60.5 H POC ABG pO2 ABG pO2 ABG HCO3 ABG Hemoglobin 8.2 L ABG Oxyhemoglobin ABG Sodium 131.3 L ABG Potassium 5.2 H ABG Chloride ABG Glucose 103 H Carboxyhemoglobin Sodium Potassium Chloride Carbon Dioxide BUN Creatinine Glucose POC Glucose 140 H 125 H Lactic Acid Calcium Phosphorus Magnesium Ferritin Direct Bilirubin AST ALT Alkaline Phosphatase Lactate Dehydrogenase Total Creatine Kinase C-Reactive Protein Total Protein Albumin Triglycerides Arterial Blood Glucose 103 H Arterial Blood Ionized Calcium 4.3 L Urine Creatinine Urine Chloride Vancomycin Trough Coronavirus (PCR) Crossmatch 07/08/20 07/08/20 07/09/20 20:21 23:43 05:10 WBC RBC Hgb Hct MCHC RDW Plt Count Lymph % (Auto) [place] % (Auto) Lymph # (Auto) [place] # (Auto) Eos # (Auto) Seg Neutrophils % Seg Neuts % (Manual) Lymphocytes % (Manual) Monocytes % (Manual) Basophils % (Manual) Nucleated RBC % Seg Neutrophils # Seg Neutrophils # Man Lymphocytes # (Manual) Monocytes # (Manual) Eosinophils # (Manual) Basophils # (Manual) PT INR APTT D-Dimer Heparin Anti-Xa Level ABG pH 7.20 L POC ABG pCO2 69.8 H POC ABG pO2 138.9 H 76.1 L ABG pO2 ABG HCO3 ABG Hemoglobin 11.9 L 8.4 L ABG Oxyhemoglobin ABG Sodium 133.1 L 131.2 L ABG Potassium 5.0 H 4.7 H ABG Chloride ABG Glucose 120 H 102 H Carboxyhemoglobin Sodium Potassium Chloride Carbon Dioxide BUN Creatinine Glucose POC Glucose 118 H Lactic Acid Calcium Phosphorus Magnesium Ferritin Direct Bilirubin AST ALT Alkaline Phosphatase Lactate Dehydrogenase Total Creatine Kinase C-Reactive Protein Total Protein Albumin Triglycerides Arterial Blood Glucose 120 H 102 H Arterial Blood Ionized Calcium 4.4 L 4.3 L Urine Creatinine Urine Chloride Vancomycin Trough Coronavirus (PCR) Crossmatch 07/09/20 07/09/20 07/09/20 11:51 17:04 21:00 WBC RBC Hgb Hct MCHC RDW Plt Count Lymph % (Auto) [place] % (Auto) Lymph # (Auto) [place] # (Auto) Eos # (Auto) Seg Neutrophils % Seg Neuts % (Manual) Lymphocytes % (Manual) Monocytes % (Manual) Basophils % (Manual) Nucleated RBC % Seg Neutrophils # Seg Neutrophils # Man Lymphocytes # (Manual) Monocytes # (Manual) Eosinophils # (Manual) Basophils # (Manual) PT INR APTT D-Dimer Heparin Anti-Xa Level ABG pH POC ABG pCO2 POC ABG pO2 114.2 H ABG pO2 ABG HCO3 ABG Hemoglobin 7.8 L ABG Oxyhemoglobin ABG Sodium 132.3 L ABG Potassium 4.6 H ABG Chloride ABG Glucose Carboxyhemoglobin Sodium Potassium Chloride Carbon Dioxide BUN Creatinine Glucose POC Glucose 113 H 111 H Lactic Acid Calcium Phosphorus Magnesium Ferritin Direct Bilirubin AST ALT Alkaline Phosphatase Lactate Dehydrogenase Total Creatine Kinase C-Reactive Protein Total Protein Albumin Triglycerides Arterial Blood Glucose Arterial Blood Ionized Calcium 4.4 L Urine Creatinine Urine Chloride Vancomycin Trough Coronavirus (PCR) Crossmatch 07/10/20 07/10/20 07/10/20 03:49 03:55 03:55 WBC 18.1 H RBC 2.37 L Hgb 6.8 L Hct 20.7 L MCHC RDW 16.9 H Plt Count Lymph % (Auto) [place] % (Auto) Lymph # (Auto) [place] # (Auto) Eos # (Auto) Seg Neutrophils % Seg Neuts % (Manual) 79.0 H Lymphocytes % (Manual) 10.0 L Monocytes % (Manual) Basophils % (Manual) Nucleated RBC % 1.0 H Seg Neutrophils # Seg Neutrophils # Man 14.3 H Lymphocytes # (Manual) Monocytes # (Manual) Eosinophils # (Manual) 0.7 H Basophils # (Manual) PT INR APTT D-Dimer Heparin Anti-Xa Level ABG pH POC ABG pCO2 POC ABG pO2 ABG pO2 ABG HCO3 ABG Hemoglobin 7.7 L ABG Oxyhemoglobin ABG Sodium 130.3 L ABG Potassium 4.6 H ABG Chloride ABG Glucose Carboxyhemoglobin Sodium 136 L Potassium Chloride 96.0 L Carbon Dioxide BUN 76 H Creatinine 3.6 H Glucose POC Glucose Lactic Acid Calcium 7.4 L Phosphorus Magnesium Ferritin Direct Bilirubin AST ALT Alkaline Phosphatase Lactate Dehydrogenase Total Creatine Kinase C-Reactive Protein Total Protein Albumin Triglycerides Arterial Blood Glucose Arterial Blood Ionized Calcium 4.2 L Urine Creatinine Urine Chloride Vancomycin Trough Coronavirus (PCR) Crossmatch 07/10/20 07/11/20 07/11/20 13:24 04:08 06:52 WBC 26.0 H RBC 2.91 L Hgb 8.2 L Hct 24.8 L MCHC RDW 17.2 H Plt Count Lymph % (Auto) [place] % (Auto) Lymph # (Auto) [place] # (Auto) Eos # (Auto) Seg Neutrophils % Seg Neuts % (Manual) Lymphocytes % (Manual) 1.0 L Monocytes % (Manual) 11.0 H Basophils % (Manual) Nucleated RBC % Seg Neutrophils # Seg Neutrophils # Man 16.9 H Lymphocytes # (Manual) 0.3 L Monocytes # (Manual) 2.9 H Eosinophils # (Manual) 1.0 H Basophils # (Manual) PT INR APTT D-Dimer Heparin Anti-Xa Level ABG pH POC ABG pCO2 POC ABG pO2 ABG pO2 ABG HCO3 ABG Hemoglobin 8.5 L ABG Oxyhemoglobin ABG Sodium 130.6 L ABG Potassium 4.9 H ABG Chloride ABG Glucose 105 H Carboxyhemoglobin Sodium Potassium Chloride Carbon Dioxide BUN Creatinine Glucose POC Glucose Lactic Acid Calcium Phosphorus Magnesium Ferritin Direct Bilirubin AST ALT Alkaline Phosphatase Lactate Dehydrogenase Total Creatine Kinase C-Reactive Protein Total Protein Albumin Triglycerides Arterial Blood Glucose 105 H Arterial Blood Ionized Calcium 4.1 L Urine Creatinine Urine Chloride Vancomycin Trough Coronavirus (PCR) Crossmatch See Detail 07/11/20 07/11/20 07/11/20 06:52 08:48 11:39 WBC RBC Hgb Hct MCHC RDW Plt Count Lymph % (Auto) [place] % (Auto) Lymph # (Auto) [place] # (Auto) Eos # (Auto) Seg Neutrophils % Seg Neuts % (Manual) Lymphocytes % (Manual) Monocytes % (Manual) Basophils % (Manual) Nucleated RBC % Seg Neutrophils # Seg Neutrophils # Man Lymphocytes # (Manual) Monocytes # (Manual) Eosinophils # (Manual) Basophils # (Manual) PT INR APTT D-Dimer Heparin Anti-Xa Level ABG pH POC ABG pCO2 POC ABG pO2 ABG pO2 ABG HCO3 ABG Hemoglobin ABG Oxyhemoglobin ABG Sodium ABG Potassium ABG Chloride ABG Glucose Carboxyhemoglobin Sodium 133 L 134 L Potassium 5.3 H Chloride 93.5 L 94.8 L Carbon Dioxide BUN 101 H 99 H Creatinine 4.5 H 4.6 H Glucose 102 H POC Glucose 116 H Lactic Acid Calcium 7.8 L 7.6 L Phosphorus Magnesium Ferritin Direct Bilirubin AST ALT Alkaline Phosphatase Lactate Dehydrogenase Total Creatine Kinase C-Reactive Protein Total Protein Albumin Triglycerides Arterial Blood Glucose Arterial Blood Ionized Calcium Urine Creatinine Urine Chloride Vancomycin Trough Coronavirus (PCR) Crossmatch 07/11/20 07/12/20 07/12/20 17:23 00:04 03:20 WBC RBC Hgb Hct MCHC RDW Plt Count Lymph % (Auto) [place] % (Auto) Lymph # (Auto) [place] # (Auto) Eos # (Auto) Seg Neutrophils % Seg Neuts % (Manual) Lymphocytes % (Manual) Monocytes % (Manual) Basophils % (Manual) Nucleated RBC % Seg Neutrophils # Seg Neutrophils # Man Lymphocytes # (Manual) Monocytes # (Manual) Eosinophils # (Manual) Basophils # (Manual) PT INR APTT D-Dimer Heparin Anti-Xa Level ABG pH POC ABG pCO2 49.1 H POC ABG pO2 130.3 H ABG pO2 ABG HCO3 ABG Hemoglobin 8.7 L ABG Oxyhemoglobin ABG Sodium 135.2 L ABG Potassium 4.7 H ABG Chloride ABG Glucose 128 H Carboxyhemoglobin Sodium Potassium Chloride Carbon Dioxide BUN Creatinine Glucose POC Glucose 142 H 113 H Lactic Acid Calcium Phosphorus Magnesium Ferritin Direct Bilirubin AST ALT Alkaline Phosphatase Lactate Dehydrogenase Total Creatine Kinase C-Reactive Protein Total Protein Albumin Triglycerides Arterial Blood Glucose 128 H Arterial Blood Ionized Calcium 4.4 L Urine Creatinine Urine Chloride Vancomycin Trough Coronavirus (PCR) Crossmatch 07/12/20 07/12/20 07/12/20 03:40 03:40 04:00 WBC 24.3 H RBC 2.83 L Hgb 8.0 L Hct 24.9 L MCHC RDW 17.7 H Plt Count Lymph % (Auto) 5.6 L [place] % (Auto) 7.4 H Lymph # (Auto) [place] # (Auto) 1.8 H Eos # (Auto) 0.7 H Seg Neutrophils % 83.9 H Seg Neuts % (Manual) Lymphocytes % (Manual) Monocytes % (Manual) Basophils % (Manual) Nucleated RBC % Seg Neutrophils # 20.4 H Seg Neutrophils # Man Lymphocytes # (Manual) Monocytes # (Manual) Eosinophils # (Manual) Basophils # (Manual) PT INR APTT D-Dimer Heparin Anti-Xa Level ABG pH POC ABG pCO2 POC ABG pO2 ABG pO2 ABG HCO3 ABG Hemoglobin ABG Oxyhemoglobin ABG Sodium ABG Potassium ABG Chloride ABG Glucose Carboxyhemoglobin Sodium 134 L Potassium Chloride 95.5 L Carbon Dioxide BUN 79 H Creatinine 3.7 H Glucose 127 H POC Glucose Lactic Acid Calcium 7.8 L Phosphorus Magnesium Ferritin Direct Bilirubin AST ALT Alkaline Phosphatase Lactate Dehydrogenase Total Creatine Kinase C-Reactive Protein Total Protein Albumin Triglycerides 246 H Arterial Blood Glucose Arterial Blood Ionized Calcium Urine Creatinine Urine Chloride Vancomycin Trough Coronavirus (PCR) Crossmatch 07/12/20 07/12/20 07/12/20 05:48 11:50 17:29 WBC RBC Hgb Hct MCHC RDW Plt Count Lymph % (Auto) [place] % (Auto) Lymph # (Auto) [place] # (Auto) Eos # (Auto) Seg Neutrophils % Seg Neuts % (Manual) Lymphocytes % (Manual) Monocytes % (Manual) Basophils % (Manual) Nucleated RBC % Seg Neutrophils # Seg Neutrophils # Man Lymphocytes # (Manual) Monocytes # (Manual) Eosinophils # (Manual) Basophils # (Manual) PT INR APTT D-Dimer Heparin Anti-Xa Level ABG pH POC ABG pCO2 POC ABG pO2 ABG pO2 ABG HCO3 ABG Hemoglobin ABG Oxyhemoglobin ABG Sodium ABG Potassium ABG Chloride ABG Glucose Carboxyhemoglobin Sodium Potassium Chloride Carbon Dioxide BUN Creatinine Glucose POC Glucose 136 H 113 H 110 H Lactic Acid Calcium Phosphorus Magnesium Ferritin Direct Bilirubin AST ALT Alkaline Phosphatase Lactate Dehydrogenase Total Creatine Kinase C-Reactive Protein Total Protein Albumin Triglycerides Arterial Blood Glucose Arterial Blood Ionized Calcium Urine Creatinine Urine Chloride Vancomycin Trough Coronavirus (PCR) Crossmatch 07/12/20 07/13/20 07/13/20 23:43 03:11 06:59 WBC RBC Hgb Hct MCHC RDW Plt Count Lymph % (Auto) [place] % (Auto) Lymph # (Auto) [place] # (Auto) Eos # (Auto) Seg Neutrophils % Seg Neuts % (Manual) Lymphocytes % (Manual) Monocytes % (Manual) Basophils % (Manual) Nucleated RBC % Seg Neutrophils # Seg Neutrophils # Man Lymphocytes # (Manual) Monocytes # (Manual) Eosinophils # (Manual) Basophils # (Manual) PT INR APTT D-Dimer Heparin Anti-Xa Level ABG pH POC ABG pCO2 49.0 H POC ABG pO2 69.6 L ABG pO2 ABG HCO3 ABG Hemoglobin 8.5 L ABG Oxyhemoglobin 90.5 L ABG Sodium 133.6 L ABG Potassium 5.1 H ABG Chloride ABG Glucose 104 H Carboxyhemoglobin Sodium 133 L Potassium 5.7 H Chloride 96.3 L Carbon Dioxide 20 L D BUN 102 H Creatinine 4.4 H Glucose 101 H POC Glucose 120 H Lactic Acid Calcium 7.9 L Phosphorus Magnesium Ferritin Direct Bilirubin AST 61 H ALT 85 H Alkaline Phosphatase 144 H Lactate Dehydrogenase Total Creatine Kinase C-Reactive Protein Total Protein 5.4 L Albumin 2.0 L Triglycerides Arterial Blood Glucose 104 H Arterial Blood Ionized Calcium 4.3 L Urine Creatinine Urine Chloride Vancomycin Trough Coronavirus (PCR) Crossmatch 07/13/20 07/13/20 07/13/20 08:48 12:14 15:12 WBC 27.5 H RBC 3.03 L Hgb 8.7 L Hct 27.0 L MCHC RDW 18.0 H Plt Count Lymph % (Auto) [place] % (Auto) Lymph # (Auto) [place] # (Auto) Eos # (Auto) Seg Neutrophils % Seg Neuts % (Manual) Lymphocytes % (Manual) Monocytes % (Manual) Basophils % (Manual) Nucleated RBC % Seg Neutrophils # Seg Neutrophils # Man Lymphocytes # (Manual) Monocytes # (Manual) Eosinophils # (Manual) Basophils # (Manual) PT INR APTT D-Dimer Heparin Anti-Xa Level ABG pH POC ABG pCO2 POC ABG pO2 ABG pO2 ABG HCO3 ABG Hemoglobin ABG Oxyhemoglobin ABG Sodium ABG Potassium ABG Chloride ABG Glucose Carboxyhemoglobin Sodium Potassium 5.5 H Chloride Carbon Dioxide BUN 88 H Creatinine 3.8 H Glucose 133 H POC Glucose 134 H Lactic Acid Calcium 7.5 L Phosphorus Magnesium Ferritin Direct Bilirubin AST ALT Alkaline Phosphatase Lactate Dehydrogenase Total Creatine Kinase C-Reactive Protein Total Protein Albumin Triglycerides Arterial Blood Glucose Arterial Blood Ionized Calcium Urine Creatinine Urine Chloride Vancomycin Trough Coronavirus (PCR) Crossmatch 07/13/20 07/13/20 07/13/20 16:46 16:47 18:46 WBC RBC Hgb 7.4 L Hct 22.1 L MCHC RDW Plt Count Lymph % (Auto) [place] % (Auto) Lymph # (Auto) [place] # (Auto) Eos # (Auto) Seg Neutrophils % Seg Neuts % (Manual) Lymphocytes % (Manual) Monocytes % (Manual) Basophils % (Manual) Nucleated RBC % Seg Neutrophils # Seg Neutrophils # Man Lymphocytes # (Manual) Monocytes # (Manual) Eosinophils # (Manual) Basophils # (Manual) PT INR APTT D-Dimer Heparin Anti-Xa Level ABG pH POC ABG pCO2 POC ABG pO2 ABG pO2 ABG HCO3 ABG Hemoglobin ABG Oxyhemoglobin ABG Sodium ABG Potassium ABG Chloride ABG Glucose Carboxyhemoglobin Sodium Potassium Chloride Carbon Dioxide BUN Creatinine Glucose POC Glucose 118 H Lactic Acid Calcium Phosphorus Magnesium Ferritin Direct Bilirubin AST ALT Alkaline Phosphatase Lactate Dehydrogenase Total Creatine Kinase C-Reactive Protein Total Protein Albumin Triglycerides Arterial Blood Glucose Arterial Blood Ionized Calcium Urine Creatinine Urine Chloride Vancomycin Trough Coronavirus (PCR) Crossmatch See Detail 07/13/20 07/14/20 07/14/20 23:34 04:25 12:21 WBC RBC Hgb Hct MCHC RDW Plt Count Lymph % (Auto) [place] % (Auto) Lymph # (Auto) [place] # (Auto) Eos # (Auto) Seg Neutrophils % Seg Neuts % (Manual) Lymphocytes % (Manual) Monocytes % (Manual) Basophils % (Manual) Nucleated RBC % Seg Neutrophils # Seg Neutrophils # Man Lymphocytes # (Manual) Monocytes # (Manual) Eosinophils # (Manual) Basophils # (Manual) PT INR APTT D-Dimer Heparin Anti-Xa Level ABG pH POC ABG pCO2 POC ABG pO2 ABG pO2 ABG HCO3 ABG Hemoglobin 8.9 L ABG Oxyhemoglobin ABG Sodium 133.1 L ABG Potassium 4.7 H ABG Chloride ABG Glucose 113 H Carboxyhemoglobin Sodium Potassium Chloride Carbon Dioxide BUN Creatinine Glucose POC Glucose 109 H 109 H Lactic Acid Calcium Phosphorus Magnesium Ferritin Direct Bilirubin AST ALT Alkaline Phosphatase Lactate Dehydrogenase Total Creatine Kinase C-Reactive Protein Total Protein Albumin Triglycerides Arterial Blood Glucose 113 H Arterial Blood Ionized Calcium 4.4 L Urine Creatinine Urine Chloride Vancomycin Trough Coronavirus (PCR) Crossmatch 07/14/20 07/14/20 07/14/20 16:44 16:44 20:20 WBC 30.1 H RBC 2.60 L Hgb 7.4 L 5.6 L* Hct 23.0 L 18.1 L* MCHC RDW 18.0 H Plt Count Lymph % (Auto) [place] % (Auto) Lymph # (Auto) [place] # (Auto) Eos # (Auto) Seg Neutrophils % Seg Neuts % (Manual) 78.0 H Lymphocytes % (Manual) 5.0 L Monocytes % (Manual) Basophils % (Manual) Nucleated RBC % Seg Neutrophils # Seg Neutrophils # Man 23.5 H Lymphocytes # (Manual) Monocytes # (Manual) 0.9 H Eosinophils # (Manual) Basophils # (Manual) PT 15.6 H INR 1.26 H APTT D-Dimer Heparin Anti-Xa Level ABG pH POC ABG pCO2 POC ABG pO2 ABG pO2 ABG HCO3 ABG Hemoglobin ABG Oxyhemoglobin ABG Sodium ABG Potassium ABG Chloride ABG Glucose Carboxyhemoglobin Sodium Potassium Chloride Carbon Dioxide BUN Creatinine Glucose POC Glucose Lactic Acid Calcium Phosphorus Magnesium Ferritin Direct Bilirubin AST ALT Alkaline Phosphatase Lactate Dehydrogenase Total Creatine Kinase C-Reactive Protein Total Protein Albumin Triglycerides Arterial Blood Glucose Arterial Blood Ionized Calcium Urine Creatinine Urine Chloride Vancomycin Trough Coronavirus (PCR) Crossmatch 0307/[id number]/20 07/15/20 21:19 23:45 04:13 WBC RBC Hgb Hct MCHC RDW Plt Count Lymph % (Auto) [place] % (Auto) Lymph # (Auto) [place] # (Auto) Eos # (Auto) Seg Neutrophils % Seg Neuts % (Manual) Lymphocytes % (Manual) Monocytes % (Manual) Basophils % (Manual) Nucleated RBC % Seg Neutrophils # Seg Neutrophils # Man Lymphocytes # (Manual) Monocytes # (Manual) Eosinophils # (Manual) Basophils # (Manual) PT INR APTT D-Dimer Heparin Anti-Xa Level ABG pH POC ABG pCO2 POC ABG pO2 ABG pO2 ABG HCO3 ABG Hemoglobin 5.8 L 6.0 L ABG Oxyhemoglobin 93.8 L ABG Sodium 132.2 L 130.3 L ABG Potassium 5.5 H 5.8 H ABG Chloride ABG Glucose 118 H 122 H Carboxyhemoglobin Sodium Potassium Chloride Carbon Dioxide BUN Creatinine Glucose POC Glucose 126 H Lactic Acid Calcium Phosphorus Magnesium Ferritin Direct Bilirubin AST ALT Alkaline Phosphatase Lactate Dehydrogenase Total Creatine Kinase C-Reactive Protein Total Protein Albumin Triglycerides Arterial Blood Glucose 118 H 122 H Arterial Blood Ionized Calcium 4.3 L 4.2 L Urine Creatinine Urine Chloride Vancomycin Trough Coronavirus (PCR) Crossmatch 07/15/20 07/15/20 07/15/20 08:21 08:21 08:38 WBC 45.5 H* RBC 2.42 L Hgb 7.1 L Hct 21.5 L MCHC RDW 16.5 H Plt Count Lymph % (Auto) [place] % (Auto) Lymph # (Auto) [place] # (Auto) Eos # (Auto) Seg Neutrophils % Seg Neuts % (Manual) 89.0 H Lymphocytes % (Manual) 7.0 L Monocytes % (Manual) Basophils % (Manual) Nucleated RBC % Seg Neutrophils # Seg Neutrophils # Man 40.5 H Lymphocytes # (Manual) Monocytes # (Manual) 1.8 H Eosinophils # (Manual) Basophils # (Manual) PT 17.6 H INR 1.46 H APTT D-Dimer Heparin Anti-Xa Level ABG pH POC ABG pCO2 POC ABG pO2 ABG pO2 ABG HCO3 ABG Hemoglobin ABG Oxyhemoglobin ABG Sodium ABG Potassium ABG Chloride ABG Glucose Carboxyhemoglobin Sodium 131 L Potassium 6.0 H Chloride 94.6 L Carbon Dioxide 20 L BUN 116 H Creatinine 4.6 H Glucose 123 H POC Glucose Lactic Acid Calcium 7.6 L Phosphorus Magnesium Ferritin Direct Bilirubin AST ALT Alkaline Phosphatase Lactate Dehydrogenase Total Creatine Kinase C-Reactive Protein Total Protein Albumin Triglycerides Arterial Blood Glucose Arterial Blood Ionized Calcium Urine Creatinine Urine Chloride Vancomycin Trough Coronavirus (PCR) Crossmatch 07/15/20 07/15/20 07/15/20 11:29 17:23 18:52 WBC RBC Hgb Hct MCHC RDW Plt Count Lymph % (Auto) [place] % (Auto) Lymph # (Auto) [place] # (Auto) Eos # (Auto) Seg Neutrophils % Seg Neuts % (Manual) Lymphocytes % (Manual) Monocytes % (Manual) Basophils % (Manual) Nucleated RBC % Seg Neutrophils # Seg Neutrophils # Man Lymphocytes # (Manual) Monocytes # (Manual) Eosinophils # (Manual) Basophils # (Manual) PT INR APTT D-Dimer Heparin Anti-Xa Level ABG pH POC ABG pCO2 POC ABG pO2 ABG pO2 ABG HCO3 ABG Hemoglobin ABG Oxyhemoglobin ABG Sodium ABG Potassium ABG Chloride ABG Glucose Carboxyhemoglobin Sodium Potassium Chloride 97.9 L Carbon Dioxide BUN 78 H Creatinine 3.1 H Glucose 114 H POC Glucose 181 H 120 H Lactic Acid Calcium 7.3 L Phosphorus Magnesium Ferritin Direct Bilirubin AST ALT Alkaline Phosphatase Lactate Dehydrogenase Total Creatine Kinase C-Reactive Protein Total Protein Albumin Triglycerides Arterial Blood Glucose Arterial Blood Ionized Calcium Urine Creatinine Urine Chloride Vancomycin Trough Coronavirus (PCR) Crossmatch 07/15/20 07/16/20 07/16/20 18:52 01:10 03:38 WBC RBC Hgb 9.9 L 8.5 L Hct 29.8 L D 24.7 L MCHC RDW Plt Count Lymph % (Auto) [place] % (Auto) Lymph # (Auto) [place] # (Auto) Eos # (Auto) Seg Neutrophils % Seg Neuts % (Manual) Lymphocytes % (Manual) Monocytes % (Manual) Basophils % (Manual) Nucleated RBC % Seg Neutrophils # Seg Neutrophils # Man Lymphocytes # (Manual) Monocytes # (Manual) Eosinophils # (Manual) Basophils # (Manual) PT INR APTT D-Dimer Heparin Anti-Xa Level ABG pH 7.314 L POC ABG pCO2 48.5 H POC ABG pO2 58.9 L ABG pO2 ABG HCO3 ABG Hemoglobin 8.7 L ABG Oxyhemoglobin 86.7 L ABG Sodium 132.7 L ABG Potassium 5.2 H ABG Chloride ABG Glucose 99 H Carboxyhemoglobin Sodium Potassium Chloride Carbon Dioxide BUN Creatinine Glucose POC Glucose Lactic Acid Calcium Phosphorus Magnesium Ferritin Direct Bilirubin AST ALT Alkaline Phosphatase Lactate Dehydrogenase Total Creatine Kinase C-Reactive Protein Total Protein Albumin Triglycerides Arterial Blood Glucose 99 H Arterial Blood Ionized Calcium 3.9 L Urine Creatinine Urine Chloride Vancomycin Trough Coronavirus (PCR) Crossmatch 07/16/20 07/16/20 07/16/20 04:28 04:28 07:29 WBC 48.9 H* RBC 2.86 L Hgb 8.6 L 7.9 L Hct 25.4 L 24.4 L MCHC RDW 15.6 H Plt Count Lymph % (Auto) [place] % (Auto) Lymph # (Auto) [place] # (Auto) Eos # (Auto) Seg Neutrophils % Seg Neuts % (Manual) Lymphocytes % (Manual) Monocytes % (Manual) Basophils % (Manual) Nucleated RBC % Seg Neutrophils # Seg Neutrophils # Man Lymphocytes # (Manual) Monocytes # (Manual) Eosinophils # (Manual) Basophils # (Manual) PT INR APTT D-Dimer Heparin Anti-Xa Level ABG pH POC ABG pCO2 POC ABG pO2 ABG pO2 ABG HCO3 ABG Hemoglobin ABG Oxyhemoglobin ABG Sodium ABG Potassium ABG Chloride ABG Glucose Carboxyhemoglobin Sodium 136 L Potassium 5.4 H Chloride 95.0 L Carbon Dioxide BUN 85 H Creatinine 3.4 H Glucose 66 L POC Glucose Lactic Acid Calcium 6.8 L Phosphorus Magnesium Ferritin Direct Bilirubin AST ALT Alkaline Phosphatase Lactate Dehydrogenase Total Creatine Kinase C-Reactive Protein Total Protein Albumin Triglycerides Arterial Blood Glucose Arterial Blood Ionized Calcium Urine Creatinine Urine Chloride Vancomycin Trough Coronavirus (PCR) Crossmatch 07/16/20 07/16/20 07/16/20 11:52 18:06 18:08 WBC RBC Hgb 7.4 L Hct 22.5 L MCHC RDW Plt Count Lymph % (Auto) [place] % (Auto) Lymph # (Auto) [place] # (Auto) Eos # (Auto) Seg Neutrophils % Seg Neuts % (Manual) Lymphocytes % (Manual) Monocytes % (Manual) Basophils % (Manual) Nucleated RBC % Seg Neutrophils # Seg Neutrophils # Man Lymphocytes # (Manual) Monocytes # (Manual) Eosinophils # (Manual) Basophils # (Manual) PT INR APTT D-Dimer Heparin Anti-Xa Level ABG pH POC ABG pCO2 POC ABG pO2 ABG pO2 ABG HCO3 ABG Hemoglobin ABG Oxyhemoglobin ABG Sodium ABG Potassium ABG Chloride ABG Glucose Carboxyhemoglobin Sodium Potassium Chloride Carbon Dioxide BUN Creatinine Glucose POC Glucose 124 H 108 H Lactic Acid Calcium Phosphorus Magnesium Ferritin Direct Bilirubin AST ALT Alkaline Phosphatase Lactate Dehydrogenase Total Creatine Kinase C-Reactive Protein Total Protein Albumin Triglycerides Arterial Blood Glucose Arterial Blood Ionized Calcium Urine Creatinine Urine Chloride Vancomycin Trough Coronavirus (PCR) Crossmatch 07/17/20 07/17/20 07/17/20 03:27 15:25 15:25 WBC 46.2 H* RBC 2.05 L Hgb 6.1 L Hct 18.4 L* MCHC RDW 15.6 H Plt Count Lymph % (Auto) [place] % (Auto) Lymph # (Auto) [place] # (Auto) Eos # (Auto) Seg Neutrophils % Seg Neuts % (Manual) 87.0 H Lymphocytes % (Manual) 3.0 L Monocytes % (Manual) Basophils % (Manual) Nucleated RBC % Seg Neutrophils # Seg Neutrophils # Man 40.2 H Lymphocytes # (Manual) Monocytes # (Manual) 3.2 H Eosinophils # (Manual) Basophils # (Manual) PT 18.2 H INR 1.52 H APTT D-Dimer Heparin Anti-Xa Level ABG pH 7.313 L POC ABG pCO2 50.9 H POC ABG pO2 ABG pO2 ABG HCO3 ABG Hemoglobin 7.5 L ABG Oxyhemoglobin ABG Sodium 131.8 L ABG Potassium 4.6 H ABG Chloride ABG Glucose 105 H Carboxyhemoglobin Sodium Potassium Chloride Carbon Dioxide BUN Creatinine Glucose POC Glucose Lactic Acid Calcium Phosphorus Magnesium Ferritin Direct Bilirubin AST ALT Alkaline Phosphatase Lactate Dehydrogenase Total Creatine Kinase C-Reactive Protein Total Protein Albumin Triglycerides Arterial Blood Glucose 105 H Arterial Blood Ionized Calcium 3.9 L Urine Creatinine Urine Chloride Vancomycin Trough Coronavirus (PCR) Crossmatch 07/17/20 07/18/20 07/18/20 Unknown 03:10 05:06 WBC 37.9 H RBC 2.91 L Hgb 8.5 L Hct 25.6 L D MCHC RDW Plt Count Lymph % (Auto) [place] % (Auto) Lymph # (Auto) [place] # (Auto) Eos # (Auto) Seg Neutrophils % Seg Neuts % (Manual) Lymphocytes % (Manual) Monocytes % (Manual) Basophils % (Manual) Nucleated RBC % Seg Neutrophils # Seg Neutrophils # Man Lymphocytes # (Manual) Monocytes # (Manual) Eosinophils # (Manual) Basophils # (Manual) PT INR APTT D-Dimer Heparin Anti-Xa Level ABG pH POC ABG pCO2 POC ABG pO2 114.9 H ABG pO2 ABG HCO3 ABG Hemoglobin 8.6 L ABG Oxyhemoglobin ABG Sodium 130.6 L ABG Potassium 4.9 H ABG Chloride ABG Glucose Carboxyhemoglobin Sodium Potassium Chloride Carbon Dioxide BUN Creatinine Glucose POC Glucose Lactic Acid Calcium Phosphorus Magnesium Ferritin Direct Bilirubin AST ALT Alkaline Phosphatase Lactate Dehydrogenase Total Creatine Kinase C-Reactive Protein Total Protein Albumin Triglycerides Arterial Blood Glucose Arterial Blood Ionized Calcium 3.8 L Urine Creatinine Urine Chloride Vancomycin Trough Coronavirus (PCR) Crossmatch See Detail 07/18/20 07/19/20 07/19/20 05:06 00:06 03:57 WBC RBC Hgb Hct MCHC RDW Plt Count Lymph % (Auto) [place] % (Auto) Lymph # (Auto) [place] # (Auto) Eos # (Auto) Seg Neutrophils % Seg Neuts % (Manual) Lymphocytes % (Manual) Monocytes % (Manual) Basophils % (Manual) Nucleated RBC % Seg Neutrophils # Seg Neutrophils # Man Lymphocytes # (Manual) Monocytes # (Manual) Eosinophils # (Manual) Basophils # (Manual) PT INR APTT D-Dimer Heparin Anti-Xa Level ABG pH POC ABG pCO2 POC ABG pO2 ABG pO2 ABG HCO3 ABG Hemoglobin 8.6 L ABG Oxyhemoglobin ABG Sodium 130.4 L ABG Potassium ABG Chloride ABG Glucose Carboxyhemoglobin Sodium Potassium 5.4 H Chloride Carbon Dioxide BUN 79 H Creatinine 3.2 H Glucose POC Glucose 69 L Lactic Acid Calcium 6.9 L Phosphorus Magnesium Ferritin Direct Bilirubin AST ALT 58 H Alkaline Phosphatase Lactate Dehydrogenase Total Creatine Kinase C-Reactive Protein Total Protein 4.3 L D Albumin 1.7 L Triglycerides 306 H Arterial Blood Glucose Arterial Blood Ionized Calcium 3.9 L Urine Creatinine Urine Chloride Vancomycin Trough Coronavirus (PCR) Crossmatch 07/19/20 07/19/20 07/19/20 05:22 09:15 09:15 WBC 32.5 H RBC 2.57 L Hgb 7.8 L Hct 22.8 L MCHC RDW 15.3 H Plt Count Lymph % (Auto) [place] % (Auto) Lymph # (Auto) [place] # (Auto) Eos # (Auto) Seg Neutrophils % Seg Neuts % (Manual) Lymphocytes % (Manual) Monocytes % (Manual) Basophils % (Manual) Nucleated RBC % Seg Neutrophils # Seg Neutrophils # Man Lymphocytes # (Manual) Monocytes # (Manual) Eosinophils # (Manual) Basophils # (Manual) PT INR APTT D-Dimer Heparin Anti-Xa Level ABG pH POC ABG pCO2 POC ABG pO2 ABG pO2 ABG HCO3 ABG Hemoglobin ABG Oxyhemoglobin ABG Sodium ABG Potassium ABG Chloride ABG Glucose Carboxyhemoglobin Sodium 135 L Potassium Chloride 96.3 L Carbon Dioxide BUN 61 H Creatinine 2.8 H Glucose POC Glucose 64 L Lactic Acid Calcium 6.8 L Phosphorus Magnesium Ferritin Direct Bilirubin AST 54 H ALT 65 H Alkaline Phosphatase Lactate Dehydrogenase Total Creatine Kinase C-Reactive Protein Total Protein 4.3 L Albumin 1.8 L Triglycerides Arterial Blood Glucose Arterial Blood Ionized Calcium Urine Creatinine Urine Chloride Vancomycin Trough Coronavirus (PCR) Crossmatch 07/20/20 07/20/20 07/20/20 05:20 06:00 06:07 WBC 28.1 H RBC 2.53 L Hgb 7.7 L Hct 22.7 L MCHC RDW 15.5 H Plt Count Lymph % (Auto) [place] % (Auto) Lymph # (Auto) [place] # (Auto) Eos # (Auto) Seg Neutrophils % Seg Neuts % (Manual) Lymphocytes % (Manual) Monocytes % (Manual) Basophils % (Manual) Nucleated RBC % Seg Neutrophils # Seg Neutrophils # Man Lymphocytes # (Manual) Monocytes # (Manual) Eosinophils # (Manual) Basophils # (Manual) PT INR APTT D-Dimer Heparin Anti-Xa Level ABG pH POC ABG pCO2 POC ABG pO2 ABG pO2 ABG HCO3 ABG Hemoglobin 6.3 L ABG Oxyhemoglobin ABG Sodium 130.0 L ABG Potassium ABG Chloride ABG Glucose 114 H Carboxyhemoglobin Sodium Potassium Chloride Carbon Dioxide BUN Creatinine Glucose POC Glucose 110 H Lactic Acid Calcium Phosphorus Magnesium Ferritin Direct Bilirubin AST ALT Alkaline Phosphatase Lactate Dehydrogenase Total Creatine Kinase C-Reactive Protein Total Protein Albumin Triglycerides Arterial Blood Glucose 114 H Arterial Blood Ionized Calcium 3.9 L Urine Creatinine Urine Chloride Vancomycin Trough Coronavirus (PCR) Crossmatch 07/20/20 07/21/20 07/21/20 17:19 05:02 05:40 WBC 32.9 H RBC 2.78 L Hgb 8.5 L Hct 25.2 L MCHC RDW 15.7 H Plt Count 74 L Lymph % (Auto) [place] % (Auto) Lymph # (Auto) [place] # (Auto) Eos # (Auto) Seg Neutrophils % Seg Neuts % (Manual) Lymphocytes % (Manual) Monocytes % (Manual) Basophils % (Manual) Nucleated RBC % Seg Neutrophils # Seg Neutrophils # Man Lymphocytes # (Manual) Monocytes # (Manual) Eosinophils # (Manual) Basophils # (Manual) PT INR APTT D-Dimer Heparin Anti-Xa Level ABG pH POC ABG pCO2 POC ABG pO2 73.2 L ABG pO2 ABG HCO3 ABG Hemoglobin 9.1 L ABG Oxyhemoglobin 93.4 L ABG Sodium ABG Potassium 3.1 L ABG Chloride ABG Glucose 112 H Carboxyhemoglobin Sodium Potassium Chloride Carbon Dioxide BUN Creatinine Glucose POC Glucose 137 H Lactic Acid Calcium Phosphorus Magnesium Ferritin Direct Bilirubin AST ALT Alkaline Phosphatase Lactate Dehydrogenase Total Creatine Kinase C-Reactive Protein Total Protein Albumin Triglycerides Arterial Blood Glucose 112 H Arterial Blood Ionized Calcium Urine Creatinine Urine Chloride Vancomycin Trough Coronavirus (PCR) Crossmatch 07/22/20 07/22/20 07/22/20 04:11 16:00 16:00 WBC 38.7 H RBC 2.72 L Hgb 8.1 L Hct 24.5 L MCHC RDW 16.1 H Plt Count Lymph % (Auto) [place] % (Auto) Lymph # (Auto) [place] # (Auto) Eos # (Auto) Seg Neutrophils % Seg Neuts % (Manual) Lymphocytes % (Manual) Monocytes % (Manual) Basophils % (Manual) Nucleated RBC % Seg Neutrophils # Seg Neutrophils # Man Lymphocytes # (Manual) Monocytes # (Manual) Eosinophils # (Manual) Basophils # (Manual) PT INR APTT D-Dimer Heparin Anti-Xa Level ABG pH POC ABG pCO2 POC ABG pO2 67.7 L ABG pO2 ABG HCO3 ABG Hemoglobin 7.4 L ABG Oxyhemoglobin 91.7 L ABG Sodium ABG Potassium 2.9 L ABG Chloride ABG Glucose 105 H Carboxyhemoglobin Sodium Potassium Chloride Carbon Dioxide BUN Creatinine Glucose POC Glucose Lactic Acid Calcium Phosphorus Magnesium Ferritin Direct Bilirubin AST ALT Alkaline Phosphatase Lactate Dehydrogenase Total Creatine Kinase C-Reactive Protein Total Protein Albumin Triglycerides 197 H Arterial Blood Glucose 105 H Arterial Blood Ionized Calcium Urine Creatinine Urine Chloride Vancomycin Trough Coronavirus (PCR) Crossmatch 07/23/20 07/23/20 07/23/20 04:56 11:49 Unknown WBC RBC Hgb Hct MCHC RDW Plt Count Lymph % (Auto) [place] % (Auto) Lymph # (Auto) [place] # (Auto) Eos # (Auto) Seg Neutrophils % Seg Neuts % (Manual) Lymphocytes % (Manual) Monocytes % (Manual) Basophils % (Manual) Nucleated RBC % Seg Neutrophils # Seg Neutrophils # Man Lymphocytes # (Manual) Monocytes # (Manual) Eosinophils # (Manual) Basophils # (Manual) PT INR APTT D-Dimer Heparin Anti-Xa Level ABG pH POC ABG pCO2 POC ABG pO2 75.7 L ABG pO2 ABG HCO3 ABG Hemoglobin 9.3 L ABG Oxyhemoglobin ABG Sodium ABG Potassium 3.1 L ABG Chloride 108.0 H ABG Glucose 101 H Carboxyhemoglobin Sodium Potassium 3.1 L D Chloride Carbon Dioxide BUN 36 H Creatinine 2.1 H Glucose 103 H POC Glucose 107 H Lactic Acid Calcium Phosphorus Magnesium Ferritin Direct Bilirubin AST ALT Alkaline Phosphatase Lactate Dehydrogenase Total Creatine Kinase C-Reactive Protein Total Protein Albumin Triglycerides Arterial Blood Glucose 101 H Arterial Blood Ionized Calcium Urine Creatinine Urine Chloride Vancomycin Trough Coronavirus (PCR) Crossmatch 07/24/20 07/24/20 07/24/20 06:40 06:40 20:38 WBC 31.4 H RBC 2.37 L Hgb 7.2 L Hct 21.7 L MCHC RDW 17.0 H Plt Count Lymph % (Auto) [place] % (Auto) Lymph # (Auto) [place] # (Auto) Eos # (Auto) Seg Neutrophils % Seg Neuts % (Manual) 85.0 H Lymphocytes % (Manual) 6.0 L Monocytes % (Manual) Basophils % (Manual) Nucleated RBC % Seg Neutrophils # Seg Neutrophils # Man 26.7 H Lymphocytes # (Manual) Monocytes # (Manual) 0.9 H Eosinophils # (Manual) Basophils # (Manual) 0.3 H PT INR APTT D-Dimer Heparin Anti-Xa Level ABG pH POC ABG pCO2 POC ABG pO2 ABG pO2 ABG HCO3 ABG Hemoglobin ABG Oxyhemoglobin ABG Sodium ABG Potassium ABG Chloride ABG Glucose Carboxyhemoglobin Sodium Potassium 3.1 L Chloride Carbon Dioxide BUN 46 H Creatinine 2.5 H Glucose 109 H POC Glucose Lactic Acid Calcium Phosphorus Magnesium Ferritin Direct Bilirubin AST 46 H ALT 74 H Alkaline Phosphatase 180 H Lactate Dehydrogenase Total Creatine Kinase C-Reactive Protein Total Protein 4.6 L Albumin 2.0 L Triglycerides Arterial Blood Glucose Arterial Blood Ionized Calcium Urine Creatinine Urine Chloride Vancomycin Trough Coronavirus (PCR) Crossmatch See Detail 07/24/20 07/25/20 07/25/20 20:40 05:39 05:39 WBC 26.6 H RBC 2.79 L Hgb 8.5 L Hct 25.6 L MCHC RDW 16.1 H Plt Count Lymph % (Auto) [place] % (Auto) Lymph # (Auto) [place] # (Auto) Eos # (Auto) Seg Neutrophils % Seg Neuts % (Manual) 72.0 H Lymphocytes % (Manual) 2.0 L Monocytes % (Manual) Basophils % (Manual) 3.0 H Nucleated RBC % 1.0 H Seg Neutrophils # Seg Neutrophils # Man 19.2 H Lymphocytes # (Manual) 0.5 L Monocytes # (Manual) 1.6 H Eosinophils # (Manual) 0.5 H Basophils # (Manual) 0.8 H PT 15.3 H INR 1.21 H APTT D-Dimer Heparin Anti-Xa Level ABG pH POC ABG pCO2 POC ABG pO2 ABG pO2 ABG HCO3 ABG Hemoglobin ABG Oxyhemoglobin ABG Sodium ABG Potassium ABG Chloride ABG Glucose Carboxyhemoglobin Sodium Potassium Chloride Carbon Dioxide BUN 55 H Creatinine 2.9 H Glucose POC Glucose Lactic Acid Calcium Phosphorus Magnesium Ferritin Direct Bilirubin AST ALT Alkaline Phosphatase Lactate Dehydrogenase Total Creatine Kinase C-Reactive Protein Total Protein Albumin Triglycerides Arterial Blood Glucose Arterial Blood Ionized Calcium Urine Creatinine Urine Chloride Vancomycin Trough Coronavirus (PCR) Crossmatch 07/25/20 07/26/20 07/26/20 17:22 08:46 08:46 WBC RBC Hgb Hct MCHC RDW Plt Count Lymph % (Auto) [place] % (Auto) Lymph # (Auto) [place] # (Auto) Eos # (Auto) Seg Neutrophils % Seg Neuts % (Manual) Lymphocytes % (Manual) Monocytes % (Manual) Basophils % (Manual) Nucleated RBC % Seg Neutrophils # Seg Neutrophils # Man Lymphocytes # (Manual) Monocytes # (Manual) Eosinophils # (Manual) Basophils # (Manual) PT INR APTT D-Dimer Heparin Anti-Xa Level ABG pH POC ABG pCO2 POC ABG pO2 ABG pO2 ABG HCO3 ABG Hemoglobin ABG Oxyhemoglobin ABG Sodium ABG Potassium ABG Chloride ABG Glucose Carboxyhemoglobin Sodium Potassium Chloride Carbon Dioxide 31 H BUN 37 H Creatinine 2.2 H Glucose POC Glucose 65 L Lactic Acid Calcium 8.2 L Phosphorus Magnesium Ferritin Direct Bilirubin AST ALT Alkaline Phosphatase Lactate Dehydrogenase Total Creatine Kinase C-Reactive Protein Total Protein Albumin Triglycerides 166 H Arterial Blood Glucose Arterial Blood Ionized Calcium Urine Creatinine Urine Chloride Vancomycin Trough Coronavirus (PCR) Crossmatch 07/26/20 07/27/20 07/27/20 Unknown 04:00 07:09 WBC 24.6 H 27.1 H RBC 2.68 L 2.74 L Hgb 8.3 L 8.3 L Hct 24.7 L 25.3 L MCHC RDW 16.3 H 17.2 H Plt Count Lymph % (Auto) [place] % (Auto) Lymph # (Auto) [place] # (Auto) Eos # (Auto) Seg Neutrophils % Seg Neuts % (Manual) 82.0 H 85.0 H Lymphocytes % (Manual) 5.0 L 4.0 L Monocytes % (Manual) 8.0 H Basophils % (Manual) Nucleated RBC % Seg Neutrophils # Seg Neutrophils # Man 20.2 H 23.0 H Lymphocytes # (Manual) 1.1 L Monocytes # (Manual) 2.0 H 1.6 H Eosinophils # (Manual) 0.7 H 1.1 H Basophils # (Manual) 0.3 H PT INR APTT D-Dimer Heparin Anti-Xa Level ABG pH POC ABG pCO2 POC ABG pO2 ABG pO2 ABG HCO3 ABG Hemoglobin ABG Oxyhemoglobin ABG Sodium ABG Potassium ABG Chloride ABG Glucose Carboxyhemoglobin Sodium Potassium Chloride Carbon Dioxide BUN Creatinine Glucose POC Glucose 115 H Lactic Acid Calcium Phosphorus Magnesium Ferritin Direct Bilirubin AST ALT Alkaline Phosphatase Lactate Dehydrogenase Total Creatine Kinase C-Reactive Protein Total Protein Albumin Triglycerides Arterial Blood Glucose Arterial Blood Ionized Calcium Urine Creatinine Urine Chloride Vancomycin Trough Coronavirus (PCR) Crossmatch Chest x-ray: pending Allied health notes reviewed: nursing
[2020-07-27] MEDS: NORepinephrine/NS 4 MG-250 ML 4 MG/250 ML BAG IV SCH (14:15)
--- NOTE | 2020-07-27 14:20 | Progress Note ---
Assessment and Plan Cultures: SARS CoV2 PCR: Positive 06/17/2020 blood culture: No growth 06/17/2020 sputum culture: No growth 07/15/2020 blood culture: No growth 07/15/2020 fungal blood culture: Enterococcus faecalis 07/15/2020 tracheal aspirate culture: Usual respiratory otf 07/18/2020 blood culture: no growth A/P: 59-year-old male with obesity, obesity hypoventilation syndrome: #Severe sepsis with septic shock, ?also component of hemorrhagic shock. On and off pressors. #Enterococcus bacteremia: 07/15/2020 fungal blood culture: grew Enterococcus. ?gut translocation. Interestingly other blood cultures from that day were negative. CT abdomen showed some colitis. Since repeat blood cultures negative, will finish 14 days of abx. #Anemia, GI bleed: GI on board. #Critical COVID-19 pneumonia: s/p abx, steroids and remdesivir. #Acute hypoxic respiratory failure: on the vent. Also with pneumomediastinum, subcutaneous emphysema. #Leukemoid reaction: likely multifactorial. #GIRISH: remains on HD per nephrology. Renally dose abx. #Sacral decubitus: s/p debridement by Dr. Kirk on 07/20/2020. Recs: -pressor requirements dropping, continue IV Ampicillin, renally dosed, complete 14 days ending 08/01/2020 -repeat blood cultures have been negative, however, if pressor requirements persist or worsen, exchange out lines -monitor fever and WBC G. Kassy Finney MD [facility] ([facility]) O: [phone] F: [phone] Subjective Date of service: 07/27/20 Principal diagnosis: ARF; Septic Shock; COVID-19 PNA; Atrial fibrillation; Obesity Interval history: Afebrile, white count increased. Had sacral wound debrided. Objective - Exam Narrative Exam: Constitutional: sedated, intubated, on the vent Head, Ears, Nose: Normocephalic, atraumatic. External ears, nose normal Eyes: Conjunctivae/corneas clear. No icterus. No ptosis. Neck: intubated Oral: intubated Cardiovascular: S1, S2 + Respiratory: AE fair bilaterally and equal GI: Soft, bowel sounds + Musculoskeletal: No pedal edema, no cyanosis. Skin: No rash or abscess Hem/Lymphatic: No palpable cervical or supraclavicular nodes. Psych: no agitation Neurological: sedated, intubated, on the vent, exam limited - Constitutional Vitals: Vital Signs Temp Pulse Resp BP Pulse Ox 98.4 F 141 H 22 111/65 96 07/27/20 12:00 07/27/20 12:30 07/27/20 12:30 07/27/20 12:30 07/27/20 13:55 Temperature -Last 24 Hours Temperature 98.4 F Temperature 98.7 F Temperature 97.9 F Temperature 97.2 F Temperature 97.6 F Temperature 98.4 F Temperature 98.4 F Temperature 98.4 F - Labs CBC & Chem 7: 07/27/20 04:00 07/26/20 08:46 Labs: Abnormal lab results 07/27/20 07/27/20 Range/Units 04:00 07:09 WBC 27.1 H (4.5-11.0) K/mm3 RBC 2.74 L (3.65-5.03) M/mm3 Hgb 8.3 L (11.8-15.2) gm/dl Hct 25.3 L (35.5-45.6) % RDW 17.2 H (13.2-15.2) % Seg Neuts % (Manual) 85.0 H (40.0-70.0) % Lymphocytes % (Manual) 4.0 L (13.4-35.0) % Seg Neutrophils # Man 23.0 H (1.8-7.7) K/mm3 Lymphocytes # (Manual) 1.1 L (1.2-5.4) K/mm3 Monocytes # (Manual) 1.6 H (0.0-0.8) K/mm3 Eosinophils # (Manual) 1.1 H (0.0-0.4) K/mm3 Basophils # (Manual) 0.3 H (0.0-0.1) K/mm3 POC Glucose 115 H (70-105) mg/dL
[2020-07-27] MEDS ORDERED: ALTEPLASE 2 MG INJ ONE (16:07)
--- NOTE | 2020-07-27 16:25 | Post Anesthesia Evaluation ---
<GERONIMO MELARA - Last Filed: 07/27/20 16:24> - Post Anesthesia Evaluation Patient Participated: Yes Airway Patent: Yes Stable Respiratory Function: Yes (intubated) Nausea/Vomiting: No Temp > 96.8F: Yes Pain Manageable: Yes Adequeate Hydration: Yes Anesthesia Complications: No Block Receding Appropriately: Not Applicable Patient on Ventilator: Yes <YAKELIN POPE - Last Filed: 07/28/20 12:27> - Post Anesthesia Evaluation Patient Participated: No
[2020-07-27] MEDS: AMIODARONE 900 MG in DEXTROSE 5% IN WATER 482 ML IV SCH ×2 (16:40→21:50)
[2020-07-27] MEDS: fentaNYL 100 MCG/2 ML INJ IV PRN (16:59)
--- NOTE | 2020-07-27 18:35 | Progress Note ---
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 Kidney function worsened and patient developed hyperkalemia, refractory acidosis and worsening azotemia. Hemodialysis initiated on June 22. Hemodynamic s tatus had improved and patient has been weaned off of vasopressors. Patient is back on Levophed. Continue hemodialysis on Saturday, Saturday and Saturday and isolated ultrafiltration on Saturday, and Saturday. (2) Severe sepsis with septic shock Current Visit: Yes Status: Acute Plan to address problem: Continue antibiotics per infectious disease emergency management consultant appropriately adjusted to the degree of renal function. (3) Hyperkalemia Current Visit: Yes Status: Acute Plan to address problem: Potassium has improved with intensive dialysis. Follow-up (4) Metabolic acidosis Current Visit: Yes Status: Acute Plan to address problem: Acidosis improving with dialysis. (5) Acute respiratory failure with hypoxia Current Visit: Yes Status: Acute Plan to address problem: Continue respiratory management by pulmonary (6) Pneumonia due to COVID-19 virus Current Visit: Yes Status: Acute Plan to address problem: IV Dexamethasone Supplemental oxygen/Respiratory support as needed Remdesevir contra-indicated due to Kidney failure Prophylactic anticoagulation Continue management per infectious disease (7) Transaminitis Current Visit: Yes Status: Acute Plan to address problem: Hypoperfusion injury. Follow-up liver function test Subjective Date of service: 07/27/20 Principal diagnosis: ARF; Septic Shock; COVID-19 PNA; Atrial fibrillation; Obesity Interval history: Patient seen lying in bed. On the ventilator. Had trach and PEG yesterday. Had debridement of sacral decubitus ulcer today. On Levophed, fentanyl and Diprivan and amiodarone infusion. Objective - Exam Narrative Exam: Obese middle-aged male lying in bed on the ventilator HEENT: NCAT, trach intact on ventilator Neck: Supple, no venous distention CVS: S1S2 RRR with no murmur, rub or gallop Chest: Coarse breath sounds Abdomen: Protuberant, soft, nontender, no organomegaly, bowel sounds are present Extremities: 2+ pitting edema Neuro: Not interacting /noncommunicative -sedated - Vital Signs Vital signs: Vital Signs - 12hr 07/27/20 07/27/20 07/27/20 07:00 07:22 07:30 Temperature Pulse Rate 100 H 91 H 91 H Pulse Rate [ From Monitor] Respiratory 15 17 Rate Blood Pressure 99/49 110/59 101/58 O2 Sat by Pulse 99 99 99 Oximetry O2 Sat by Pulse Oximetry [ Assessment] 07/27/20 07/27/20 07/27/20 08:00 08:30 09:00 Temperature 98.7 F Pulse Rate 103 H 92 H 92 H Pulse Rate [ 90 From Monitor] Respiratory 15 17 17 Rate Blood Pressure 98/52 103/60 92/50 O2 Sat by Pulse 99 99 99 Oximetry O2 Sat by Pulse Oximetry [ Assessment] 07/27/20 07/27/20 07/27/20 09:30 10:00 10:30 Temperature Pulse Rate 92 H 93 H 105 H Pulse Rate [ From Monitor] Respiratory 11 L 16 14 Rate Blood Pressure 103/56 102/55 98/59 O2 Sat by Pulse 99 99 98 Oximetry O2 Sat by Pulse Oximetry [ Assessment] 07/27/20 07/27/20 07/27/20 11:00 11:31 11:51 Temperature Pulse Rate 120 H 111 H 107 H Pulse Rate [ From Monitor] Respiratory 35 H 13 Rate Blood Pressure 108/67 127/80 127/77 O2 Sat by Pulse 93 96 96 Oximetry O2 Sat by Pulse Oximetry [ Assessment] 07/27/20 07/27/20 07/27/20 12:00 12:30 13:00 Temperature 98.4 F Pulse Rate 113 H 141 H 119 H Pulse Rate [ 123 H From Monitor] Respiratory 27 H 22 26 H Rate Blood Pressure 106/52 111/65 94/56 O2 Sat by Pulse 95 95 95 Oximetry O2 Sat by Pulse Oximetry [ Assessment] 07/27/20 07/27/20 07/27/20 13:30 13:55 14:00 Temperature Pulse Rate 128 H 121 H Pulse Rate [ From Monitor] Respiratory 30 H 26 H Rate Blood Pressure 110/47 95/51 O2 Sat by Pulse 97 96 Oximetry O2 Sat by Pulse 96 Oximetry [ Assessment] 07/27/20 07/27/20 07/27/20 14:30 15:01 15:30 Temperature Pulse Rate 115 H 117 H 125 H Pulse Rate [ From Monitor] Respiratory 27 H 18 24 Rate Blood Pressure 83/53 103/55 106/56 O2 Sat by Pulse 98 98 99 Oximetry O2 Sat by Pulse Oximetry [ Assessment] 07/27/20 07/27/20 07/27/20 16:00 16:30 16:45 Temperature Pulse Rate 130 H 138 H 117 H Pulse Rate [ 132 H From Monitor] Respiratory 17 17 Rate Blood Pressure 105/57 118/55 113/64 O2 Sat by Pulse 85 95 95 Oximetry O2 Sat by Pulse Oximetry [ Assessment] 07/27/20 07/27/20 07/27/20 17:01 17:30 18:00 Temperature Pulse Rate 132 H 121 H 123 H Pulse Rate [ From Monitor] Respiratory 20 18 18 Rate Blood Pressure 102/62 96/56 101/53 O2 Sat by Pulse 98 99 99 Oximetry O2 Sat by Pulse Oximetry [ Assessment] - Lab 07/27/20 04:00 07/26/20 08:46 Most recent lab results ABG pH 7.355 (7.320-7.450) 07/23/20 04:56 ABG pCO2 56.4 mm Hg 07/05/20 04:30 ABG pO2 151.9 mm Hg (80.0-90.0) H 07/05/20 04:30 ABG HCO3 26.8 mmol/L (20.0-26.0) H 07/05/20 04:30 ABG O2 Saturation 94.8 (0-100) 07/23/20 04:56 Calcium 8.2 mg/dL (8.4-10.2) L 07/26/20 08:46 Phosphorus 9.40 mg/dL (2.5-4.5) H 06/30/20 03:50 Magnesium 2.70 mg/dL (1.7-2.3) H 06/18/20 20:33 Urine Creatinine 192.4 mg/dL (0.1-20.0) H 06/18/20 15:00 Urine Sodium 28 mmol/L 06/18/20 15:00 Medications & Allergies - Medications Allergies/Adverse Reactions: Allergies No Known Allergies Allergy (Unverified 06/17/20 14:24) Home Medications: Home Medications Medication Instructions Recorded Confirmed Last Taken Type Losartan/Hydrochlorothiazide 1 each PO QDAY 06/19/20 06/19/20 Unknown History [Losartan-Hctz 100-25 mg Tab] amLODIPine [Norvasc] 5 mg PO DAILY 06/19/20 06/19/20 Unknown History Active Medications: Generic Name Dose Route Start Last Admin Trade Name Freq PRN Reason Stop Dose Admin Acetaminophen 650 mg 06/17/20 14:17 07/03/20 09:16 Acetaminophen 325 Mg Tab PO 650 mg Q4H PRN Administration Pain MILD(1-3)/Fever >100.5/ROBERTS Albuterol 2.5 mg 07/19/20 12:15 Albuterol 2.5 Mg/3 Ml Nebu IH Q6HRT PRN Shortness Of Breath Amiodarone HCl 200 mg 07/19/20 14:00 07/27/20 10:48 Amiodarone 200 Mg Tab PO 200 mg BID CONNOR Administration Lipase/Protease/Amylase 1 each 06/19/20 12:15 Lipase 10,500/Protease 25,000/Amylase 43,750 (Units) Dr Shad FEEDTUBE PRN PRN For Clogged Feeding Tube Ascorbic Acid 250 mg 06/17/20 22:00 07/27/20 10:48 Ascorbic Acid 250 Mg Tab PO 250 mg BID CONNOR Administration Cholecalciferol 1,000 unit 06/18/20 10:00 07/27/20 10:48 Cholecalciferol (Vit D3) 1000 Unit (25 Mcg) Tab PO 1,000 unit DAILY CONNOR Administration Dextrose 50 ml 07/26/20 22:00 07/27/20 06:42 Dextrose 50% In Water (25gm) 50 Ml Syringe IV 50 ml Q30MIN PRN Administration Hypoglycemia Protocol Docusate Sodium 100 mg 06/23/20 15:00 07/27/20 10:52 Docusate Sodium 100 Mg/10 Ml Oral Liqd FEEDTUBE Not Given BID CONNOR Fentanyl 50 mcg 06/18/20 01:02 07/27/20 16:59 Fentanyl 100 Mcg/2 Ml Inj IV 50 mcg Q10MIN PRN Administration ANALGESIA Heparin Sodium (Porcine) 5,000 unit 06/22/20 12:53 06/30/20 13:36 Heparin 10,000 Unit/1 Ml Vial IV 5,000 unit PAM PRN Administration hemodialysis Hydrophilic Ointment 1 applic 06/17/20 22:52 07/12/20 20:22 Lip Therapy Vaseline TP 1 applic Q2HR PRN Administration Dry Lips Propofol 1,000 mg in 100 mls @ 3.402 mls/hr 06/18/20 01:00 07/27/20 11:53 Diprivan 10 Mg/Ml IV 15 mcg/kg/min TITR CONNOR 10.206 mls/hr Administration Protocol 5 MCG/KG/MIN Fentanyl Citrate 2,000 mcg in 100 mls @ 8 mls/hr 06/18/20 02:00 07/27/20 10:47 Fentanyl Drip Premix IV 2 mcg/kg/hr TITR CONNOR 16 mls/hr Administration Protocol 1 MCG/KG/HR Norepinephrine 4 mg in 250 mls @ 7.5 mls/hr 07/08/20 02:06 07/27/20 14:15 Levophed Drip 4 Mg/Ns 250 Ml IV 6 mcg/min TITR CONNOR 22.5 mls/hr Administration Protocol 2 MCG/MIN Vasopressin 20 unit/ Sodium 101 mls @ 9.09 mls/hr 07/11/20 11:00 07/18/20 15:36 Chloride IV 0 units/min TITR CONNOR 0 mls/hr Titration Protocol 0.03 UNITS/MIN Ampicillin Sodium 2 gm in 100 mls @ 100 mls/hr 07/21/20 12:00 07/27/20 12:49 Ampicillin/Ns 2 Gm/100 Ml IV 08/02/20 12:59 100 mls/hr Q12H CONNOR Administration Protocol Sodium Chloride 100 mls @ 999 mls/hr 07/26/20 15:30 Nacl 0.9% IV PAM PRN Hypotension Amiodarone HCl 900 mg/ 500 mls @ 33.333 mls/hr 07/27/20 17:00 07/27/20 16:40 Dextrose IV 1 mg/min DIRECT CONNOR 33.333 mls/hr Administration Protocol 1 MG/MIN Insulin Human Regular 0 units 06/18/20 12:00 07/27/20 12:34 Insulin Regular, Human 100 Units/1 Ml SUB-Q Not Given Q6HR CONNOR Protocol Multi-Ingred Cream/Lotion/Oil/Oint 1 applic 06/17/20 22:52 07/12/20 20:22 Mineral Oil/Petrolatum, White Ophth Oint 3.5 Gm OU 1 applic Q4HR PRN Administration Dry Eye(s) Ondansetron HCl 4 mg 06/17/20 14:17 Ondansetron 4 Mg/2 Ml Inj IV Q8H PRN Nausea And Vomiting Pantoprazole Sodium 40 mg 07/16/20 22:00 07/27/20 10:59 Pantoprazole 40 Mg Inj IV 40 mg BID CONNOR Administration Polyethylene Glycol 17 gm 06/23/20 15:00 07/27/20 10:47 Polyethylene Glycol 3350 17 Gm Powder PO Not Given QDAY CONNOR Quetiapine Fumarate 200 mg 06/28/20 13:00 07/27/20 10:59 Quetiapine 200 Mg Tab PO 200 mg BID CONNOR Administration Simple Syrup 15 ml 06/19/20 12:15 07/26/20 13:55 Simple Syrup 15 Ml FEEDTUBE 15 ml PRN PRN Administration Hypoglycemia Simple Syrup 30 ml 06/19/20 12:15 07/19/20 06:04 Simple Syrup 15 Ml FEEDTUBE 30 ml PRN PRN Administration Hypoglycemia Sodium Bicarbonate 325 mg 06/19/20 12:15 07/11/20 20:00 Sodium Bicarbonate 325 Mg Tab FEEDTUBE 325 mg PRN PRN Administration For Clogged Feeding Tube Sodium Chloride 10 ml 06/17/20 22:00 07/27/20 10:49 Sodium Chloride 0.9% 10 Ml Flush Syringe IV 10 ml BID CONNOR Administration Sodium Chloride 10 ml 06/17/20 14:17 Sodium Chloride 0.9% 10 Ml Flush Syringe IV PRN PRN LINE FLUSH Sodium Hypochlorite 1 applic 07/20/20 10:00 07/27/20 10:49 Sodium Hypochlorite, [place]'s 1/2 Strength (0.25%) 473 Ml Topical Soln TP 1 applicatio BID CONNOR Administration Zinc Sulfate 220 mg 06/17/20 22:00 07/27/20 10:59 Zinc Sulfate 220 Mg Cap PO 220 mg BID CONNOR Administration
[2020-07-27] MEDS ORDERED: ALTEPLASE 2 MG INJ IV PRN (18:40)
[2020-07-27] MEDS ORDERED: SODIUM CHLORIDE 0.9% 100 ML IV PRN (18:40)
[2020-07-27 21:54] LABS: Hemoglobin 6.4 gm/dl (11.8-15.2)
[2020-07-27 21:56] LABS: Hematocrit 19.8 % (35.5-45.6)
[2020-07-27] MEDS ORDERED: SODIUM CHLORIDE 0.9% 500 ML 500 ML IV ONE (22:02)
[2020-07-28] MEDS ORDERED: SODIUM CHLORIDE 0.9% 500 ML 500 ML ONE (00:51)
[2020-07-28] MEDS: NORepinephrine/NS 4 MG-250 ML 4 MG/250 ML BAG IV SCH ×3 (01:06→22:13)
[2020-07-28] MEDS: AMPICILLIN/NS 2 GM/100 ML 2 GM/100 ML BAG IV SCH ×2 (01:36→11:06)
[2020-07-28] MEDS: INSULIN REGULAR, HUMAN 100 UNITS/1 ML SUB-Q SCH ×4 (01:36→18:42)
[2020-07-28] MEDS: fentaNYL DRIP Premix 2,000 MCG/100 ML BAG IV SCH ×5 (02:49→22:30)
[2020-07-28 06:23] LABS: Hematocrit 21.2 % (35.5-45.6); Hemoglobin 7.2 gm/dl (11.8-15.2); Mean Corpuscular HGB Conc 34 % (32-34); Mean Corpuscular Volume 90 fl (84-94); Platelet Count 200 K/mm3 (140-440); Red Blood Count 2.35 M/mm3 (3.65-5.03); Red Cell Distribution Width 16.8 % (13.2-15.2)
[2020-07-28 06:33] LABS: Calcium 7.2 mg/dL (8.4-10.2)
[2020-07-28] MEDS: POLYETHYLENE GLYCOL 3350 17 GM POWDER PO SCH (09:54)
[2020-07-28] MEDS: ZINC SULFATE 220 MG CAP PO SCH ×2 (09:54→22:16)
[2020-07-28] MEDS: ASCORBIC ACID 250 MG TAB PO SCH ×2 (09:54→22:16)
[2020-07-28] MEDS: DOCUSATE SODIUM 100 MG/10 ML ORAL LIQD FEEDTUBE SCH ×2 (09:54→22:15)
[2020-07-28] MEDS: PANTOPRAZOLE 40 MG INJ IV SCH ×2 (09:55→22:16)
[2020-07-28] MEDS: AMIODARONE 200 MG TAB PO SCH ×2 (09:57→22:16)
[2020-07-28] MEDS: SODIUM HYPOCHLORITE, DAKIN'S 1/2 STRENGTH (0.25%) 473 ML TOPICAL SOLN TP SCH ×2 (09:57→22:16)
[2020-07-28] MEDS: QUEtiapine 200 MG TAB PO SCH ×2 (09:58→22:16)
[2020-07-28] MEDS: AMIODARONE 900 MG in DEXTROSE 5% IN WATER 482 ML IV SCH (09:59)
[2020-07-28] MEDS: CHOLECALCIFEROL (VIT D3) 1000 UNIT (25 mcg) TAB PO SCH (10:01)
--- NOTE | 2020-07-28 10:57 | Progress Note ---
Assessment and Plan Pt s/p trach and PEG. Cont present cardiac management. The patient has been seen in conjunction with Dr. Singh who agrees with the assessment and plan of care. - Patient Problems (1) Acute respiratory failure with hypoxia Current Visit: Yes Status: Acute (2) Pneumonia due to COVID-19 virus Current Visit: Yes Status: Acute (3) Sepsis Current Visit: Yes Status: Acute Qualifiers: Severe sepsis acute organ dysfunction type: acute respiratory failure Severe sepsis shock status: with septic shock (4) Paroxysmal atrial fibrillation with rapid ventricular response Current Visit: Yes Status: Acute (5) Acute renal failure Current Visit: Yes Status: Acute (6) Elevated LFTs Current Visit: Yes Status: Acute (7) Anemia Current Visit: Yes Status: Acute Subjective Date of service: 07/28/20 Principal diagnosis: ARF; Septic Shock; COVID-19 PNA; Atrial fibrillation; Obesity Interval history: pt s/p trach and PEG. tele reviewed - in AFib/AFlutter HR 100s. Objective Last Vital Signs Temp 99.2 F 07/28/20 07:16 Pulse 120 H 07/28/20 07:35 Resp 13 07/28/20 06:30 BP 99/60 07/28/20 07:35 Pulse Ox 98 07/28/20 07:35 - Physical Examination General: Other (trached, sedated) Neck: Positive: neck supple Cardiac: Positive: irregularly irregular, S1/S2 Lungs: Positive: Decreased Breath Sounds Neuro: Positive: Other (trached, sedated) Abdomen: Positive: Unremarkable Skin: Negative: Rash, Wound Extremities: Present: upper extr. pulses, lower extr. pulses, +1 Edema - Labs and Meds CBC 07/27/20 07/28/20 Range/Units 21:45 04:00 WBC 30.3 H (4.5-11.0) K/mm3 RBC 2.35 L (3.65-5.03) M/mm3 Hgb 6.4 L 7.2 L (11.8-15.2) gm/dl Hct 19.8 L* 21.2 L (35.5-45.6) % Plt Count 200 (140-440) K/mm3 Comprehensive Metabolic Panel 07/28/20 Range/Units Unknown Sodium 139 (137-145) mmol/L Potassium 3.2 L (3.6-5.0) mmol/L Chloride 103.2 (98-107) mmol/L Carbon Dioxide 25 (22-30) mmol/L BUN 35 H (9-20) mg/dL Creatinine 2.3 H (0.8-1.3) mg/dL Glucose 123 H (75-100) mg/dL Calcium 7.2 L (8.4-10.2) mg/dL - Imaging and Cardiology EKG: report reviewed, image reviewed Echo: report reviewed (TDS, EF 55-60%. ) - Telemetry EKG Rhythm: Atrial Fibrillation - EKG Sinus rhythms and dysrhythmias: sinus tachycardia - Allied health notes Allied health notes reviewed: nursing
--- NOTE | 2020-07-28 12:47 | Progress Note ---
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 Kidney function worsened and patient developed hyperkalemia, refractory acidosis and worsening azotemia. Hemodialysis initiated on June 22. requiring intermittent vasopressor support. Continue hemodialysis on Saturday, Saturday and Saturday and isolated ultrafiltration on Saturday, and Saturday for aggressive volume control. (2) Acute respiratory failure with hypoxia Current Visit: Yes Status: Acute Plan to address problem: Patient s/p tracheostomy, Vent management per pulmonology recommendations. (3) Pneumonia due to COVID-19 virus Current Visit: Yes Status: Acute Plan to address problem: Management per infectious disease recommendations. (4) Anemia Current Visit: Yes Status: Acute Qualifiers: Other causes of anemia: acute posthemorrhagic Plan to address problem: PRBC transfusion prn to target Hb > 7. cont EPO with HD (5) Hypokalemia Current Visit: Yes Status: Acute Plan to address problem: K supplementation with IV KCl to target K >4 (6) Severe sepsis with septic shock Current Visit: Yes Status: Acute Plan to address problem: Continue antibiotics per infectious disease [employer] consultant appropriately adjusted to the degree of renal function. Subjective Date of service: 07/28/20 Principal diagnosis: ARF; Septic Shock; COVID-19 PNA; Atrial fibrillation; Obesity Interval history: Patient remains on vent/trach, on intermittent levophed. remains significantly fluid overload, plan for isolated UF today Objective - Vital Signs Vital signs: Vital Signs - 12hr 07/28/20 07/28/20 07/28/20 01:00 01:30 01:40 Temperature 97.8 F Pulse Rate 126 H 133 H 131 H Pulse Rate [ From Monitor] Respiratory 19 24 20 Rate Blood Pressure 110/53 107/62 110/53 O2 Sat by Pulse 98 97 97 Oximetry O2 Sat by Pulse Oximetry [ Assessment] 07/28/20 07/28/20 07/28/20 01:47 01:50 02:00 Temperature 98.1 F Pulse Rate 139 H 138 H Pulse Rate [ From Monitor] Respiratory 19 22 Rate Blood Pressure 101/58 101/58 O2 Sat by Pulse 97 97 Oximetry O2 Sat by Pulse Oximetry [ Assessment] 07/28/20 07/28/20 07/28/20 02:10 02:17 02:20 Temperature 98.7 F Pulse Rate 136 H 135 H Pulse Rate [ From Monitor] Respiratory 18 28 H Rate Blood Pressure 109/54 101/59 O2 Sat by Pulse 97 97 Oximetry O2 Sat by Pulse Oximetry [ Assessment] 07/28/20 07/28/20 07/28/20 02:30 02:35 02:40 Temperature Pulse Rate 137 H 129 H Pulse Rate [ From Monitor] Respiratory 21 16 Rate Blood Pressure 114/66 108/67 O2 Sat by Pulse 97 96 Oximetry O2 Sat by Pulse 97 Oximetry [ Assessment] 07/28/20 07/28/20 07/28/20 02:50 03:00 03:08 Temperature 97.5 F L Pulse Rate 137 H 129 H Pulse Rate [ From Monitor] Respiratory 17 19 Rate Blood Pressure 112/66 114/62 O2 Sat by Pulse 97 97 Oximetry O2 Sat by Pulse Oximetry [ Assessment] 07/28/20 07/28/20 07/28/20 03:30 04:00 04:27 Temperature 98.4 F Pulse Rate 123 H 112 H 123 H Pulse Rate [ 111 H From Monitor] Respiratory 15 17 Rate Blood Pressure 115/60 106/60 115/59 O2 Sat by Pulse 96 96 97 Oximetry O2 Sat by Pulse Oximetry [ Assessment] 07/28/20 07/28/20 07/28/20 04:30 05:01 05:30 Temperature Pulse Rate 135 H 128 H 121 H Pulse Rate [ From Monitor] Respiratory 16 15 13 Rate Blood Pressure 118/61 108/63 122/53 O2 Sat by Pulse 96 97 98 Oximetry O2 Sat by Pulse Oximetry [ Assessment] 07/28/20 07/28/20 07/28/20 06:00 06:30 07:16 Temperature 99.2 F Pulse Rate 121 H 134 H Pulse Rate [ From Monitor] Respiratory 14 13 Rate Blood Pressure 109/63 113/56 O2 Sat by Pulse 98 99 Oximetry O2 Sat by Pulse Oximetry [ Assessment] 07/28/20 07/28/20 07/28/20 07:35 11:14 12:24 Temperature Pulse Rate 120 H 122 H Pulse Rate [ From Monitor] Respiratory Rate Blood Pressure 99/60 95/55 O2 Sat by Pulse 97 97 Oximetry O2 Sat by Pulse 98 100 Oximetry [ Assessment] 07/28/20 12:35 Temperature 98.9 F Pulse Rate Pulse Rate [ From Monitor] Respiratory Rate Blood Pressure O2 Sat by Pulse Oximetry O2 Sat by Pulse Oximetry [ Assessment] - General Appearance General appearance: well-developed, chronically ill, sedated on ventilator, intubated EENT: ATNC, PERRL, mucous membranes moist Neck: no JVD Respiratory: Present: Decreased Breath Sounds Cardiology: regular, S1S2 Gastrointestinal: normoactive bowel sounds Integumentary: no rash, other (+ 2 edema b/l LE ) Neurologic: other (intubated, sedated ) - Lab 07/28/20 04:00 07/28/20 Unknown Most recent lab results ABG pH 7.355 (7.320-7.450) 07/23/20 04:56 ABG pCO2 56.4 mm Hg 07/05/20 04:30 ABG pO2 151.9 mm Hg (80.0-90.0) H 07/05/20 04:30 ABG HCO3 26.8 mmol/L (20.0-26.0) H 07/05/20 04:30 ABG O2 Saturation 94.8 (0-100) 07/23/20 04:56 Calcium 7.2 mg/dL (8.4-10.2) L 07/28/20 Unknown Phosphorus 9.40 mg/dL (2.5-4.5) H 06/30/20 03:50 Magnesium 2.70 mg/dL (1.7-2.3) H 06/18/20 20:33 Urine Creatinine 192.4 mg/dL (0.1-20.0) H 06/18/20 15:00 Urine Sodium 28 mmol/L 06/18/20 15:00 Medications & Allergies - Medications Allergies/Adverse Reactions: Allergies No Known Allergies Allergy (Unverified 06/17/20 14:24) Home Medications: Home Medications Medication Instructions Recorded Confirmed Last Taken Type Losartan/Hydrochlorothiazide 1 each PO QDAY 06/19/20 06/19/20 Unknown History [Losartan-Hctz 100-25 mg Tab] amLODIPine [Norvasc] 5 mg PO DAILY 06/19/20 06/19/20 Unknown History Active Medications: Generic Name Dose Route Start Last Admin Trade Name Freq PRN Reason Stop Dose Admin Acetaminophen 650 mg 06/17/20 14:17 07/03/20 09:16 Acetaminophen 325 Mg Tab PO 650 mg Q4H PRN Administration Pain MILD(1-3)/Fever >100.5/ROBERTS Albuterol 2.5 mg 07/19/20 12:15 Albuterol 2.5 Mg/3 Ml Nebu IH Q6HRT PRN Shortness Of Breath Alteplase, Recombinant 2 mg 07/27/20 18:40 Alteplase 2 Mg Inj IV PAM PRN LINE FLUSH Amiodarone HCl 200 mg 07/19/20 14:00 07/28/20 09:57 Amiodarone 200 Mg Tab PO Not Given BID CONNOR Lipase/Protease/Amylase 1 each 06/19/20 12:15 Lipase 10,500/Protease 25,000/Amylase 43,750 (Units) Dr Kulkarni FEEDTUBE PRN PRN For Clogged Feeding Tube Ascorbic Acid 250 mg 06/17/20 22:00 07/28/20 09:54 Ascorbic Acid 250 Mg Tab PO 250 mg BID CONNOR Administration Cholecalciferol 1,000 unit 06/18/20 10:00 07/28/20 10:01 Cholecalciferol (Vit D3) 1000 Unit (25 Mcg) Tab PO 1,000 unit DAILY CONNOR Administration Dextrose 50 ml 07/26/20 22:00 07/27/20 06:42 Dextrose 50% In Water (25gm) 50 Ml Syringe IV 50 ml Q30MIN PRN Administration Hypoglycemia Protocol Docusate Sodium 100 mg 06/23/20 15:00 07/28/20 09:54 Docusate Sodium 100 Mg/10 Ml Oral Liqd FEEDTUBE 100 mg BID CONNOR Administration Fentanyl 50 mcg 06/18/20 01:02 07/27/20 16:59 Fentanyl 100 Mcg/2 Ml Inj IV 50 mcg Q10MIN PRN Administration ANALGESIA Heparin Sodium (Porcine) 5,000 unit 06/22/20 12:53 06/30/20 13:36 Heparin 10,000 Unit/1 Ml Vial IV 5,000 unit PAM PRN Administration hemodialysis Hydrophilic Ointment 1 applic 06/17/20 22:52 07/12/20 20:22 Lip Therapy Vaseline TP 1 applic Q2HR PRN Administration Dry Lips Propofol 1,000 mg in 100 mls @ 3.402 mls/hr 06/18/20 01:00 07/28/20 11:59 Diprivan 10 Mg/Ml IV 15 mcg/kg/min TITR CONNOR 10.206 mls/hr Administration Protocol 5 MCG/KG/MIN Fentanyl Citrate 2,000 mcg in 100 mls @ 8 mls/hr 06/18/20 02:00 07/28/20 12 :03 Fentanyl Drip Premix IV 3 mcg/kg/hr TITR CONNOR 24 mls/hr Administration Protocol 1 MCG/KG/HR Norepinephrine 4 mg in 250 mls @ 7.5 mls/hr 07/08/20 02:06 07/28/20 12:10 Levophed Drip 4 Mg/Ns 250 Ml IV 6 mcg/min TITR CONNOR 22.5 mls/hr Administration Protocol 2 MCG/MIN Vasopressin 20 unit/ Sodium 101 mls @ 9.09 mls/hr 07/11/20 11:00 07/18/20 15:36 Chloride IV 0 units/min TITR CONNOR 0 mls/hr Titration Protocol 0.03 UNITS/MIN Ampicillin Sodium 2 gm in 100 mls @ 100 mls/hr 07/21/20 12:00 07/28/20 11:06 Ampicillin/Ns 2 Gm/100 Ml IV 08/01/20 12:59 100 mls/hr Q12H CONNOR Administration Protocol Amiodarone HCl 900 mg/ 500 mls @ 33.333 mls/hr 07/27/20 17:00 07/28/20 09:59 Dextrose IV 0.5 mg/min DIRECT CONNOR 16.667 mls/hr Administration Protocol 1 MG/MIN Sodium Chloride 100 mls @ 999 mls/hr 07/27/20 18:40 Nacl 0.9% IV PAM PRN Hypotension Insulin Human Regular 0 units 06/18/20 12:00 07/28/20 09:58 Insulin Regular, Human 100 Units/1 Ml SUB-Q Not Given Q6HR [facility] Protocol Multi-Ingred Cream/Lotion/Oil/Oint 1 applic 06/17/20 22:52 07/12/20 20:22 Mineral Oil/Petrolatum, White Ophth Oint 3.5 Gm OU 1 applic Q4HR PRN Administration Dry Eye(s) Ondansetron HCl 4 mg 06/17/20 14:17 Ondansetron 4 Mg/2 Ml Inj IV Q8H PRN Nausea And Vomiting Pantoprazole Sodium 40 mg 07/16/20 22:00 07/28/20 09:55 Pantoprazole 40 Mg Inj IV 40 mg BID CONNOR Administration Polyethylene Glycol 17 gm 06/23/20 15:00 07/28/20 09:54 Polyethylene Glycol 3350 17 Gm Powder PO 17 gm QDAY CONNOR Administration Quetiapine Fumarate 200 mg 06/28/20 13:00 07/28/20 09:58 Quetiapine 200 Mg Tab PO 200 mg BID CONNOR Administration Simple Syrup 15 ml 06/19/20 12:15 07/26/20 13:55 Simple Syrup 15 Ml FEEDTUBE 15 ml PRN PRN Administration Hypoglycemia Simple Syrup 30 ml 06/19/20 12:15 07/19/20 06:04 Simple Syrup 15 Ml FEEDTUBE 30 ml PRN PRN Administration Hypoglycemia Sodium Bicarbonate 325 mg 06/19/20 12:15 07/11/20 20:00 Sodium Bicarbonate 325 Mg Tab FEEDTUBE 325 mg PRN PRN Administration For Clogged Feeding Tube Sodium Chloride 10 ml 06/17/20 22:00 07/28/20 09:58 Sodium Chloride 0.9% 10 Ml Flush Syringe IV 10 ml BID CONNOR Administration Sodium Chloride 10 ml 06/17/20 14:17 Sodium Chloride 0.9% 10 Ml Flush Syringe IV PRN PRN LINE FLUSH Sodium Hypochlorite 1 applic 07/20/20 10:00 07/28/20 09:57 Sodium Hypochlorite, Dakin's 1/2 Strength (0.25%) 473 Ml Topical Soln TP 1 applicatio BID CONNOR Administration Zinc Sulfate 220 mg 06/17/20 22:00 07/28/20 09:54 Zinc Sulfate 220 Mg Cap PO 220 mg BID CONNOR Administration
--- NOTE | 2020-07-28 13:04 | Progress Note ---
Assessment and Plan Assessment and plan: 59-year-old white male who was admitted for pneumonia secondary to Covid with associated respiratory failure and sepsis. Severe septic shock COVID-19 pneumonia Sacral wound, stage 4 Leukocytosis Acute metabolic encephalopathy Acute hypoxic respiratory failure Enterococcus bacteremia Pneumomediastinum Acute kidney injury likely secondary to acute tubular necrosis which progressed to hemodialysis SVT/proximal atrial fibrillation Elevated LFTs Anemia likely due to severe sepsis had declining renal function Morbid obesity Leukocytosis Hypoalbuminemia 06/18: Patient got intubated overnight. Patient was placed on BiPAP to maintain oxygenation with 100% FiO2 but apparently he found to take off his argueta which made his oxygen saturation go down at 60s/50s and patient was found altered mental status. Code met was called immediately. Patient was transferred to ICU and intubated, patient currently on 2 pressors, intubated with 100% FiO2, renal function noted to be decline, nephrology consulted. Discussed with [place] physician Dr. Thompson and requested call back on Saturday. Poor prognosis, continue to monitor with aggressive supportive care. Also called family/ to update clinical status. 06/19: Repeat COVID test was positive. cont cefepime, remdesivir per ID recom mendation. follow inflammatory markers, cbc, bmp. placed on heparin drip for atrial fib 06/20: Remains on mechanical ventilation, on 2 pressors, on heparin drip. discussed with and daughter by phone. Renal function declining. cont supportive care for now. 06/21: Renal function cont to decline, urine outpt sig decreased. started on lasix 80mg BID, plan to follow urine output, if no improvement patient need to start on HD. called and daughter today. updated all clinical details 06/22: Renal function continues to decline with uremia and hyperkalemia. Will need to proceed with hemodialysis. Nephrology discussed with the family and they agrees for the hemodialysis. Patient remains on pressor support and mechanical ventilation. Vas-Cath placed today by vascular started on hemodialysis today. 06/23: 2nd round of HD today, remains on 2 pressors. per RN not tolerating TF, has no record of BM since 06/18. start on stool softner. follow cbc/bmp. updated family ( and daughter) by phone -all question answered to best of my knowledge and to their satisfaction. Patient remains critically ill with a very poor prognosis. 06/24: Continue supportive care, Very poor prognosis, Firearms Sales Associate to discuss with family in am due to the futility of the condition. 06/25/2020 continue supportive care very poor prognosis 06/26/2020 continue supportive care very poor prognosis family updated 06/27/2020 continue supportive care and weaning if possible 06/28/2020 continue supportive care, talk with at length 06/29: Resumed care. K level persistently high. give one dose of bicarbonate, plan for HD today, recheck k after HD. updated family by phone 06/30: updated family by phone. Patient remains on amiodarone drip and vasopressin. Getting HD at the bedside. Tolerating tube feeding at low rate. 07/01: Hb dropped to 6.4 today, transfuse one unit PRBC. patient is off pressor today, remains on amioderone. cont to monitor 07/02: Called patient and updated clinical details. Patient remains critically ill, still intubated. Patient's oxygen requirement and PEEP pressure has went down. Continue weaning protocol per critical care recommendation. Patient remains off pressor. Continue to wean off from amiodarone and plan to rate control with p.o. medications. Tolerating tube feeding. H&H stable today. Order for stool for occult blood. Monitor H&H and BMP. Continue to follow clinically 07/03: discussed with Shilpa physician today. Patient back on 100percent Fio2 since last night. planned for emergent Hd today. spiked fever, start IV Cefepime + Vancomycin renally dosed. Restarted Levophed today, remains on amiodarone drip. Patient family was updated by critical care attending today. 07/04: Patient has hemodialysis yesterday and also plan for today for volume overload and pulmonary edema. Patient currently on 80% FiO2. Remains on Levophed and amiodarone. Hemoglobin dropped to 6.7 without any evidence of active bleeding. LFTs remain stable. Repeat Covid test on 06/30 and 07/03 remains positive. Will transfuse another unit of packed RBC today. Called family for update -explained family that patient is critically ill with very poor prognosis. 07/05: Patient on 70% FiO2 with PEEP of 14. h/h stable after transfusion. hyperkalemia improved, cont sodiumbicarbonate pill with TF. follow BMP. off levophed today, remains on amioderone. poor prognosis. 07/06: Patient remains on amiodarone drip, maintaining BP without any pressor. FiO2 requirement trended down to 60% with PEEP of 14. Continue to follow clinically. Plan to wean off amiodarone drip as tolerated. Wean off from sedation as tolerated. Updated family. Patient remains critically ill with poor prognosis. 07/07: Called family for update. Off amiodarone drip today, patient also off pressor. FiO2 requirement trended up again to 80-100%. Continue to provide supportive care, monitor clinically. Having difficulty to wean off from the vent support. Patient is persistently positive for COVID-19 and COVID-19 antibody is nonreactive. Patient remains critically ill with very poor prognosis. 07/08: Continue supportive care. Diathermy Equipment Repairer crocheter hand and associate quality engineer input noted. Prognosis remains guarded to poor. Management per team. Critical care time 35-minute 07/09/20 patient is tachycardic. Heart rate 121. Hemoglobin 7.3. Patient is having hemodialysis. Continue supportive care. Patient having difficulty to wean off from the vent support. Prognosis is poor. Nephrology and cardiology follow-up. Recheck CBC BMP in the morning. Continue current management. 07/10/20 patient seen and examined, remains on full ventilator patient is doing better. Patient is off pressor. heart rate 123. Hemoglobin 6.8 and hematocrit 20.7. WBC is 18.1. Continue supportive care. Patient having difficulty to wean off from the vent support. We will started on Zosyn 4.5 g IV every 8 hours. Will transfuse 1 unit of packed red blood cell. Prognosis is poor. Nephrology and cardiology follow up. Recheck CBC BMP in the morning 07/11: remains off vasopressor, h/h appropriately responded to 1 unit PRBC. HD today. Remain on MV with fiO2 at 70%. peep 10. No acute events reported overnight. 07/12: Patient remains in atrial fibrillation on the specialty therapist, vas opressor support with Levophed and vasopressin, sedated with fentanyl and propofol. Vent settings: CMV 500/25/14/0.60. Patient remains hypercarbic on ABG 07/13: Patient remains on vasopressin, fentanyl and propofol with rectal tube in place. This morning some examination patient was on assist control 25/500/14/0.60. Patient received hemodialysis today. No acute events reported overnight. 07/14: Remains on vasopressin, fentanyl and propofol with tube in place. Rectal tube in place with noted blood clots, GI consulted, on 07/13 H/H dropped from 8.7/27 to 7.4/22 and anticoagulation discontinued. This morning I spoke to his who still wishes for the patient to remain a full code despite update with continued use of vasopressor (vasopressin), current ventilatory support (CMV 500/25/14/0.60) and recent development of rectal bleeding. Patient's family requests an update from [facility] and GI. Cardio changed amio from PO to IV given elevated HR 07/15: Today the patient received a total of 5 units of PRBC and is still having bleeding through his rectal tube. CTA abdomen/pelvis is pending, patient remains on Levophed, fentanyl, propofol, vasopressin and received hemodialysis today. He was also hyperkalemic today to 6 and he received insulin and D50. Extensive conversation with family conducted by [facility] and hospitalist and his and 2 daughters did visit him today at the bedside. 07/16: Continues with full ventilatory support. FMS still inplace with some loose bloody stool. Still on multiple pressors, Bilateral swollen and generalized anascara. Monitor H/H and transfuse as needed. Monitor K level. Discussed with family at bedside yesterday. 07/17: Continue supportive care, transfusion blood possible in am with HD, continue abx, very poor prognosis, blood pressure still labile. Discussed with nurse at bedside 07/18: CTA abdomen/pelvis completed, antibiotics changed to Zosyn per infectious disease, remains on mechanical ventilation 450/25/12/0.55 continue amiodarone drip for 24 more hours, blood culture grew Enterococcus. Remains sedated on propofol and fentanyl. Not on vasopressor support today 07/19: No acute events reported overnight, remains sedated with fentanyl and propofol and off vasopressor therapy today. 07/20: s/p debridement with surgery today, remains on fentanyl, propofol, Levophed and current vent settings 450/25/10/0.45. Patient will be transferred to a bariatric bed once available. 07/21: Continue current management, wean ventilator as tolerated, IV antibiotics deescalated to ampicillin. Per infectious disease no need to exchange/remove lines unless repeat blood cultures turn positive. The time my examination patient was sedated on fentanyl and propofol and remains off vasopressor support. 07/22: At the time my examination patient is sedated on fentanyl and propofol and remains off vasopressor support, repeat COVID-19 PCR negative. Patient remains on ampicillin. H/H remained stable and GI has signed off. Mechanical ventilation weaning as tolerated. 07/23. He remains sedated on fentanyl and propofol. On mechanical ventilation. On levophed. repeat COVID-19 PCR negative. Patient remains on ampicillin. H/H remained stable and GI has signed off. 07/24. He remains sedated and on mechanical ventilation. On levophed. repeat COVID-19 PCR negative. On ampicillin. ID recs appreciated. Labs reviewed 07/25: Patient remains sedated on fentanyl and Diprivan and remains on mechanical ventilation. Repeat CXR and still has leukocytosis. Patient is n.p.o. for trach and PEG with surgery. 07/26: Remains sedated on fentanyl and propofol. Remains on vasopressor support with Levophed. Current vent settings CMV 450/20/8/0.40. Patient is scheduled for PEG/trach with surgery. No acute events reported overnight. 07/27: Debridement with surgery to sacrum:, Activity restarted, remains sedated on propofol/fentanyl and Precedex support with Levophed. Current vent settings CMV 450/20/8/135. S/p trach/PEG with surgery 07/26. Patient remains afebrile how ever leukocytosis slightly worse today and he is still on his ampicillin. Patient was hypoglycemic overnight. 07/28: Patient remains sedated on dipper Van and fentanyl. Continue amiodarone drip for rate control. Patient be started on pressors of Levophed last evening. Patient currently with PSV/CPAP FiO2 35% PEEP of 8 and pressure support of 20. Wean mechanical ventilation as tolerated, VAP bundle. Continue hemodialysis per nephrology recommendations. Continue antibiotics per ID recommendations. Hold systemic anticoagulation in the setting of severe anemia. Patient with status post debridement on 07/27. The high probability of a clinically significant, sudden or life threatening deterioration of the [cardiac, respiratory and neurological] system(s) required my full and direct attention, intervention and personal management. The aggregate critical care time was [33] minutes. This time is in addition to time spent performing reported procedures but includes the following: [x] Data Review and interpretation [x] Patient assessment and monitoring of vital signs [x] Documentation [x] Medication orders and management History Interval history: No new issues overnight. Hospitalist Physical - Constitutional Vitals: Temp Pulse Resp BP Pulse Ox 98.9 F 122 H 13 95/55 100 07/28/20 12:35 07/28/20 11:14 07/28/20 06:30 07/28/20 11:14 07/28/20 12:24 General appearance: Present: no acute distress, well-nourished, other (Patient remains on mechanical ventilation) - EENT Eyes: Present: PERRL, EOM intact ENT: hearing intact, clear oral mucosa, dentition normal - Neck Neck: Present: supple, normal ROM - Respiratory Respiratory effort: normal Respiratory: bilateral: CTA - Cardiovascular Rhythm: regular Heart Sounds: Present: S1 & S2. Absent: gallop, rub - Extremities Extremities: no ischemia, No edema, Full ROM - Abdominal General gastrointestinal: soft, non-tender, non-distended, normal bowel sounds - Integumentary Integumentary: Present: clear, warm, dry - Neurologic Neurologic: CNII-XII intact, moves all extremities HEART Score - HEART Score Troponin: Troponin T < 0.010 ng/mL (0.00-0.029) 06/17/20 12:33 Results - Labs CBC & Chem 7: 07/28/20 04:00 07/28/20 Unknown Labs: Laboratory Last Values WBC 30.3 K/mm3 (4.5-11.0) H 07/28/20 04:00 RBC 2.35 M/mm3 (3.65-5.03) L 07/28/20 04:00 Hgb 7.2 gm/dl (11.8-15.2) L 07/28/20 04:00 Hct 21.2 % (35.5-45.6) L 07/28/20 04:00 MCV 90 fl (84-94) 07/28/20 04:00 MCH 31 pg (28-32) 07/28/20 04:00 MCHC 34 % (32-34) 07/28/20 04:00 RDW 16.8 % (13.2-15.2) H 07/28/20 04:00 Plt Count 200 K/mm3 (140-440) 07/28/20 04:00 Lymph % (Auto) 5.6 % (13.4-35.0) L 07/12/20 03:40 [place] % (Auto) 7.4 % (0.0-7.3) H 07/12/20 03:40 Eos % (Auto) 2.8 % (0.0-4.3) 07/12/20 03:40 Baso % (Auto) 0.3 % (0.0-1.8) 07/12/20 03:40 Lymph # (Auto) 1.4 K/mm3 (1.2-5.4) 07/12/20 03:40 [place] # (Auto) 1.8 K/mm3 (0.0-0.8) H 07/12/20 03:40 Eos # (Auto) 0.7 K/mm3 (0.0-0.4) H 07/12/20 03:40 Baso # (Auto) 0.1 K/mm3 (0.0-0.1) 07/12/20 03:40 Add Manual Diff Complete 07/27/20 04:00 Total Counted 100 07/27/20 04:00 Seg Neutrophils % [employer] Supervisor 07/17/20 15:25 Seg Neuts % (Manual) 85.0 % (40.0-70.0) H 07/27/20 04:00 Band Neutrophils % 1.0 % 07/26/20 Unknown Lymphocytes % (Manual) 4.0 % (13.4-35.0) L 07/27/20 04:00 Reactive Lymphs % (Man) 1.0 % 06/23/20 04:00 Monocytes % (Manual) 6.0 % (0.0-7.3) 07/27/20 04:00 Eosinophils % (Manual) 4.0 % (0.0-4.3) 07/27/20 04:00 Basophils % (Manual) 1.0 % (0.0-1.8) 07/27/20 04:00 Metamyelocytes % 1.0 % 07/26/20 Unknown Myelocytes % 1.0 % 07/25/20 05:39 Promyelocytes % 0 % 07/17/20 15:25 Nucleated RBC % Not Reportable 07/27/20 04:00 Seg Neutrophils # 20.4 K/mm3 (1.8-7.7) H 07/12/20 03:40 Seg Neutrophils # Man 23.0 K/mm3 (1.8-7.7) H 07/27/20 04:00 Band Neutrophils # 0.0 K/mm3 07/27/20 04:00 Lymphocytes # (Manual) 1.1 K/mm3 (1.2-5.4) L 07/27/20 04:00 Abs React Lymphs (Man) 0.0 K/mm3 07/27/20 04:00 Monocytes # (Manual) 1.6 K/mm3 (0.0-0.8) H 07/27/20 04:00 Eosinophils # (Manual) 1.1 K/mm3 (0.0-0.4) H 07/27/20 04:00 Basophils # (Manual) 0.3 K/mm3 (0.0-0.1) H 07/27/20 04:00 Metamyelocytes # 0.0 K/mm3 07/27/20 04:00 Myelocytes # 0.0 K/mm3 07/27/20 04:00 Promyelocytes # 0.0 K/mm3 07/27/20 04:00 Blast Cells # 0.0 K/mm3 07/27/20 04:00 Pathologist Review 07/17/20 15:25 WBC Morphology Not Reportable 07/27/20 04:00 Hypersegmented Neuts Not Reportable 07/27/20 04:00 Hyposegmented Neuts Not Reportable 07/27/20 04:00 Hypogranular Neuts Not Reportable 07/27/20 04:00 Smudge Cells Not Reportable 07/27/20 04:00 Toxic Granulation Not Reportable 07/27/20 04:00 Toxic Vacuolation Not Reportable 07/27/20 04:00 Dohle Bodies Not Reportable 07/27/20 04:00 Pelger-Huet Anomaly Not Reportable 07/27/20 04:00 Carlito Rods Not Reportable 07/27/20 04:00 Platelet Estimate Consistent w auto 07/27/20 04:00 Clumped Platelets Not Reportable 07/27/20 04:00 Plt Clumps, EDTA Not Reportable 07/27/20 04:00 Large Platelets Not Reportable 07/27/20 04:00 Giant Platelets Not Reportable 07/27/20 04:00 Platelet Satelliting Not Reportable 07/27/20 04:00 Plt Morphology Comment Not Reportable 07/27/20 04:00 RBC Morphology Not Reportable 07/27/20 04:00 Dimorphic RBCs Not Reportable 07/27/20 04:00 Polychromasia Not Reportable 07/27/20 04:00 Hypochromasia 1+ 07/27/20 04:00 Poikilocytosis Not Reportable 07/27/20 04:00 Anisocytosis Not Reportable 07/27/20 04:00 Microcytosis Not Reportable 07/27/20 04:00 Macrocytosis Not Reportable 07/27/20 04:00 Spherocytes Not Reportable 07/27/20 04:00 Pappenheimer Bodies Not Reportable 07/27/20 04:00 Sickle Cells Not Reportable 07/27/20 04:00 Target Cells Not Reportable 07/27/20 04:00 Tear Drop Cells Not Reportable 07/27/20 04:00 Ovalocytes Not Reportable 07/27/20 04:00 Stomatocytes Few 07/27/20 04:00 Helmet Cells Not Reportable 07/27/20 04:00 [place] Bodies Not Reportable 07/27/20 04:00 [place] Rings Not Reportable 07/27/20 04:00 [place] Cells Not Reportable 07/27/20 04:00 Bite Cells Not Reportable 07/27/20 04:00 Crenated Cell Not Reportable 07/27/20 04:00 Elliptocytes Not Reportable 07/27/20 04:00 Acanthocytes (Spur) Not Reportable 07/27/20 04:00 Rouleaux Not Reportable 07/27/20 04:00 Hemoglobin C Crystals Not Reportable 07/27/20 04:00 Schistocytes Not Reportable 07/27/20 04:00 Malaria parasites Not Reportable 07/27/20 04:00 Victoriano Bodies Not Reportable 07/27/20 04:00 Hem Pathologist Commnt No 07/27/20 04:00 PT 15.3 Sec. (12.2-14.9) H 07/24/20 20:40 INR 1.21 (0.87-1.13) H 07/24/20 20:40 APTT 36.1 Sec. (24.2-36.6) 07/24/20 20:40 Fibrinogen 419 mg/dl (211-480) 07/15/20 08:21 D-Dimer 6608.00 ng/mlDDU (0-234) H 07/03/20 14:50 Heparin Anti-Xa Level < 0.10 U.I./ml (0.3-0.7) L 06/26/20 01:30 ABG pH 7.355 (7.320-7.450) 07/23/20 04:56 POC ABG pCO2 46.9 mmHg (32.0-48.0) 07/23/20 04:56 ABG pCO2 56.4 mm Hg 07/05/20 04:30 POC ABG pO2 75.7 mmHg (83-108) L 07/23/20 04:56 ABG pO2 151.9 mm Hg (80.0-90.0) H 07/05/20 04:30 POC ABG HCO3 25.6 07/23/20 04:56 ABG HCO3 26.8 mmol/L (20.0-26.0) H 07/05/20 04:30 ABG O2 Saturation 94.8 (0-100) 07/23/20 04:56 ABG O2 Content 5.0 (0.0-44) 07/04/20 05:20 POC ABG Base Excess -0.1 07/23/20 04:56 ABG Base Excess 0.1 mmol/L (-2.0-3.0) 07/05/20 04:30 ABG Hemoglobin 9.3 (12.0-17.5) L 07/23/20 04:56 ABG Oxyhemoglobin 91.7 (94-98) L 07/22/20 04:11 ABG Carboxyhemoglobin 1.7 % (0.0-5.0) 07/05/20 04:30 ABG Methemoglobin 0.3 (0.0-1.5) 07/22/20 04:11 ABG Sodium 139.7 mmol/L (136.0-145.0) 07/23/20 04:56 ABG Potassium 3.1 mmol/L (3.40-4.50) L 07/23/20 04:56 ABG Chloride 108.0 mmol/L (98-107) H 07/23/20 04:56 ABG Glucose 101 mg/dL (65-95) H 07/23/20 04:56 Oxyhemoglobin 96.5 % (95.0-99.0) 07/05/20 04:30 Carboxyhemoglobin 1.3 (0.5-1.5) 07/22/20 04:11 FiO2 50 07/20/20 06:00 FiO2 % 40 07/23/20 04:56 Sodium 139 mmol/L (137-145) 07/28/20 Unknown Potassium 3.2 mmol/L (3.6-5.0) L 07/28/20 Unknown Chloride 103.2 mmol/L (98-107) 07/28/20 Unknown Carbon Dioxide 25 mmol/L (22-30) 07/28/20 Unknown Anion Gap 14 mmol/L 07/28/20 Unknown BUN 35 mg/dL (9-20) H 07/28/20 Unknown Creatinine 2.3 mg/dL (0.8-1.3) H 07/28/20 Unknown Estimated GFR 35 ml/min 07/28/20 Unknown BUN/Creatinine Ratio 15 % 07/28/20 Unknown Glucose 123 mg/dL (75-100) H 07/28/20 Unknown POC Glucose 107 mg/dL (70-105) H 07/28/20 06:27 Lactic Acid 0.90 mmol/L (0.7-2.0) 07/23/20 Unknown Calcium 7.2 mg/dL (8.4-10.2) L 07/28/20 Unknown Phosphorus 9.40 mg/dL (2.5-4.5) H 06/30/20 03:50 Magnesium 2.70 mg/dL (1.7-2.3) H 06/18/20 20:33 Ferritin 1171.0 ng/mL (30.0-300.0) H 07/03/20 14:50 Total Bilirubin 0.20 mg/dL (0.1-1.2) 07/24/20 06:40 Direct Bilirubin 0.5 mg/dL (0-0.2) H 07/05/20 08:21 Indirect Bilirubin 0.1 mg/dL 07/05/20 08:21 AST 46 units/L (5-40) H 07/24/20 06:40 ALT 74 units/L (7-56) H 07/24/20 06:40 Alkaline Phosphatase 180 units/L (35-129) H 07/24/20 06:40 Lactate Dehydrogenase 525 units/L (91-180) H 07/03/20 14:50 Total Creatine Kinase 618 units/L (55-170) H 06/29/20 Unknown Troponin T < 0.010 ng/mL (0.00-0.029) 06/17/20 12:33 C-Reactive Protein 31.50 mg/dL (0.00-1.30) H 07/03/20 14:50 Total Protein 4.6 g/dL (6.3-8.2) L 07/24/20 06:40 Albumin 2.0 g/dL (3.9-5) L 07/24/20 06:40 Albumin/Globulin Ratio 0.8 % 07/24/20 06:40 Triglycerides 166 mg/dL (2-149) H 07/26/20 08:46 Procalcitonin 6.05 ng/mL (<0.15) 07/13/20 06:59 Arterial Blood Glucose 101 mg/dL (65-95) H 07/23/20 04:56 Arterial Blood Ionized Calcium 5.3 mg/dL (4.6-5.3) 07/23/20 04:56 Urine Color Yellow (Yellow) 06/17/20 15:57 Urine Turbidity Clear (Clear) 06/17/20 15:57 Urine pH 6.0 (5.0-7.0) 06/17/20 15:57 Ur Specific [place] 1.019 (1.003-1.030) 06/17/20 15:57 Urine Protein 30 mg/dl mg/dL (Negative) 06/17/20 15:57 Urine Glucose (UA) Neg mg/dL (Negative) 06/17/20 15:57 Urine Ketones Neg mg/dL (Negative) 06/17/20 15:57 Urine Blood Sm (Negative) 06/17/20 15:57 Urine Nitrite Neg (Negative) 06/17/20 15:57 Ur Reducing Substances Not Reportable 06/17/20 15:57 Urine Bilirubin Neg (Negative) 06/17/20 15:57 Urine Ictotest Not Reportable 06/17/20 15:57 Urine Urobilinogen < 2.0 mg/dL (<2.0) 06/17/20 15:57 Ur Leukocyte Esterase Neg (Negative) 06/17/20 15:57 Urine WBC (Auto) 1.0 /HPF (0.0-6.0) 06/17/20 15:57 Urine RBC (Auto) 2.0 /HPF (0.0-6.0) 06/17/20 15:57 Urine Mucus Few /HPF 06/17/20 15:57 Urine Creatinine 192.4 mg/dL (0.1-20.0) H 06/18/20 15:00 Urine Sodium 28 mmol/L 06/18/20 15:00 Urine Chloride 31.1 mmolL (110-250) L 06/18/20 15:00 Nasal Screen MRSA (PCR) Negative (Negative) 06/19/20 10:38 Vancomycin Trough 22.7 ug/mL (5.0-20.0) H 06/20/20 08:25 Random Vancomycin 13.5 ug/mL (0-40.0) 07/16/20 07:17 Coronavirus (PCR) Negative (Negative) 07/22/20 Unknown Hepatitis A IgM Ab Non-reactive (NonReactive) 06/22/20 17:00 Hep Bs Antigen Non-reactive (Negative) 06/22/20 17:00 Hep B Core IgM Ab Non-reactive (NonReactive) 06/22/20 17:00 Hepatitis C Antibody Non-reactive (NonReactive) 06/22/20 17:00 SARS-CoV-2 IgG Ab Nonreactive (NonReactive) 07/04/20 05:20 Blood Type A POSITIVE 07/27/20 22:36 Antibody Screen Negative 07/27/20 22:36 Crossmatch See Detail 07/27/20 22:36 - Diagnostic Impressions Diagnostic Impressions: Echocardiogram 06/29/20 06:00 Transthoracic Echocardiogram Indication: A-fib BP: 105/47 HR: 99 Conclusions *The study is technically very difficult and limited due to poor acoustic windows. *Global left ventricular wall motion and contractility are within normal limits. *The estimated ejection fraction is 55-60%. *There is no pericardial effusion. Findings Procedure Info: The study quality is technically difficult. The study is technically limited due to poor acoustic windows. Left Ventricle: Global left ventricular wall motion and contractility are within normal limits. Global left ventricular systolic function is normal. The estimated ejection fraction is 55-60%. Left Atrium: The left atrium is not well visualized. Right Ventricle: The right ventricle is not well visualized. Right Atrium: The right atrium is not well visualized. Aortic Valve: The aortic valve is not well visualized. Mitral Valve: The mitral valve is not well visualized. Tricuspid Valve: The tricuspid valve is not well visualized. Pulmonic Valve: The pulmonic valve is not well visualized. Pericardium: There is no pericardial effusion. Venous: There is no change in the dimension of the inferior vena cava with respiration consistent with markedly increased right atrial pressure. [place]ell/IV: Voiding Method Incontinent Active Medications - Current Medications Current Medications: Generic Name Dose Route Start Last Admin Trade Name Freq PRN Reason Stop Dose Admin Acetaminophen 650 mg 06/17/20 14:17 07/03/20 09:16 Acetaminophen 325 Mg Tab PO 650 mg Q4H PRN Administration Pain MILD(1-3)/Fever >100.5/ROBERTS Albuterol 2.5 mg 07/19/20 12:15 Albuterol 2.5 Mg/3 Ml Nebu IH Q6HRT PRN Shortness Of Breath Alteplase, Recombinant 2 mg 07/27/20 18:40 Alteplase 2 Mg Inj IV PAM PRN LINE FLUSH Amiodarone HCl 200 mg 07/19/20 14:00 07/28/20 09:57 Amiodarone 200 Mg Tab PO Not Given BID CONNOR Lipase/Protease/Amylase 1 each 06/19/20 12:15 Lipase 10,500/Protease 25,000/Amylase 43,750 (Units) Dr Kulkarni FEEDTUBE PRN PRN For Clogged Feeding Tube Ascorbic Acid 250 mg 06/17/20 22:00 07/28/20 09:54 Ascorbic Acid 250 Mg Tab PO 250 mg BID CONNOR Administration Cholecalciferol 1,000 unit 06/18/20 10:00 07/28/20 10:01 Cholecalciferol (Vit D3) 1000 Unit (25 Mcg) Tab PO 1,000 unit DAILY CONNOR Administration Dextrose 50 ml 07/26/20 22:00 07/27/20 06:42 Dextrose 50% In Water (25gm) 50 Ml Syringe IV 50 ml Q30MIN PRN Administration Hypoglycemia Protocol Docusate Sodium 100 mg 06/23/20 15:00 07/28/20 09:54 Docusate Sodium 100 Mg/10 Ml Oral Liqd FEEDTUBE 100 mg BID CONNOR Administration Fentanyl 50 mcg 06/18/20 01:02 07/27/20 16:59 Fentanyl 100 Mcg/2 Ml Inj IV 50 mcg Q10MIN PRN Administration ANALGESIA Heparin Sodium (Porcine) 5,000 unit 06/22/20 12:53 06/30/20 13:36 Heparin 10,000 Unit/1 Ml Vial IV 5,000 unit PAM PRN Administration hemodialysis Hydrophilic Ointment 1 applic 06/17/20 22:52 07/12/20 20:22 Lip Therapy Vaseline TP 1 applic Q2HR PRN Administration Dry Lips Propofol 1,000 mg in 100 mls @ 3.402 mls/hr 06/18/20 01:00 07/28/20 11:59 Diprivan 10 Mg/Ml IV 15 mcg/kg/min TITR CONNOR 10.206 mls/hr Administration Protocol 5 MCG/KG/MIN Fentanyl Citrate 2,000 mcg in 100 mls @ 8 mls/hr 06/18/20 02:00 07/28/20 12:03 Fentanyl Drip Premix IV 3 mcg/kg/hr TITR CONNOR 24 mls/hr Administration Protocol 1 MCG/KG/HR Norepinephrine 4 mg in 250 mls @ 7.5 mls/hr 07/08/20 02:06 07/28/20 12:10 Levophed Drip 4 Mg/Ns 250 Ml IV 6 mcg/min TITR CONNOR 22.5 mls/hr Administration Protocol 2 MCG/MIN Vasopressin 20 unit/ Sodium 101 mls @ 9.09 mls/hr 07/11/20 11:00 07/18/20 15:36 Chloride IV 0 units/min TITR CONNOR 0 mls/hr Titration Protocol 0.03 UNITS/MIN Ampicillin Sodium 2 gm in 100 mls @ 100 mls/hr 07/21/20 12:00 07/28/20 11:06 Ampicillin/Ns 2 Gm/100 Ml IV 08/01/20 12:59 100 mls/hr Q12H CONNOR Administration Protocol Amiodarone HCl 900 mg/ 500 mls @ 33.333 mls/hr 07/27/20 17:00 07/28/20 09:59 Dextrose IV 0.5 mg/min DIRECT CONNOR 16.667 mls/hr Administration Protocol 1 MG/MIN Sodium Chloride 100 mls @ 999 mls/hr 07/27/20 18:40 Nacl 0.9% IV PAM PRN Hypotension Insulin Human Regular 0 units 06/18/20 12:00 07/28/20 09:58 Insulin Regular, Human 100 Units/1 Ml SUB-Q Not Given Q6HR [facility] Protocol Multi-Ingred Cream/Lotion/Oil/Oint 1 applic 06/17/20 22:52 07/12/20 20:22 Mineral Oil/Petrolatum, White Ophth Oint 3.5 Gm OU 1 applic Q4HR PRN Administration Dry Eye(s) Ondansetron HCl 4 mg 06/17/20 14:17 Ondansetron 4 Mg/2 Ml Inj IV Q8H PRN Nausea And Vomiting Pantoprazole Sodium 40 mg 07/16/20 22:00 07/28/20 09:55 Pantoprazole 40 Mg Inj IV 40 mg BID CONNOR Administration Polyethylene Glycol 17 gm 06/23/20 15:00 07/28/20 09:54 Polyethylene Glycol 3350 17 Gm Powder PO 17 gm QDAY CONNOR Administration Quetiapine Fumarate 200 mg 06/28/20 13:00 07/28/20 09:58 Quetiapine 200 Mg Tab PO 200 mg BID CONNOR Administration Simple Syrup 15 ml 06/19/20 12:15 07/26/20 13:55 Simple Syrup 15 Ml FEEDTUBE 15 ml PRN PRN Administration Hypoglycemia Simple Syrup 30 ml 06/19/20 12:15 07/19/20 06:04 Simple Syrup 15 Ml FEEDTUBE 30 ml PRN PRN Administration Hypoglycemia Sodium Bicarbonate 325 mg 06/19/20 12:15 07/11/20 20:00 Sodium Bicarbonate 325 Mg Tab FEEDTUBE 325 mg PRN PRN Administration For Clogged Feeding Tube Sodium Chloride 10 ml 06/17/20 22:00 07/28/20 09:58 Sodium Chloride 0.9% 10 Ml Flush Syringe IV 10 ml BID CONNOR Administration Sodium Chloride 10 ml 06/17/20 14:17 Sodium Chloride 0.9% 10 Ml Flush Syringe IV PRN PRN LINE FLUSH Sodium Hypochlorite 1 applic 07/20/20 10:00 07/28/20 09:57 Sodium Hypochlorite, Dakin's 1/2 Strength (0.25%) 473 Ml Topical Soln TP 1 applicatio BID CNONOR Administration Zinc Sulfate 220 mg 06/17/20 22:00 07/28/20 09:54 Zinc Sulfate 220 Mg Cap PO 220 mg BID CONNOR Administration Nutrition/Malnutrition Assess - Dietary Evaluation Nutrition/Malnutrition Findings: Nutrition Notes Start: 06/18/20 10:28 Freq: Status: Active Protocol: Document 07/28/20 10:21 AL (Rec: 07/28/20 10:34 AL [id number]) Co-Sign 07/28/20 10:21 LP Nutrition Notes Initial or Follow up Reassessment Current Diagnosis Acute Kidney Injury,Sepsis, Respiratory Failure Other Pertinent Diagnosis Pneu, on HD. Current Diet Nepro 1.8 at 50 ml/hr Labs/Tests K 3.2 BUN 35 Cr 2.3 Pertinent Medications Levophed Propofol 10.2 ml/hr (269 kcal) Height 6 ft Weight 157.9 kg Lapel Body Weight (kg) 80.90 BMI 47.2 Weight change and time frame 6.3% wt loss (10.6 kg). Pt on HD. Weight Status Morbidly Obese Subjective/Other Information F/U for trach/PEG placement and TF tolerance. Trach/PEG placed on 07/26. Pt tolerating TF at 50 ml/hr (goal rate). Percent of energy/protein needs met: 98%/60% Burn Absent Trauma Absent GI Symptoms Other Skin Integrity/Comment Unstageable Sacral Pressure Ulcer Current % PO Negligible Minimum of two criteria No physical signs of malnutrition #3 Nutrition Diagnosis Increased nutrient needs ( specify in comment below) Comments: Protein Diagnosis Progress(for reassessment Continues documentation) #1 Nutrition Diagnosis Inadequate oral intake Diagnosis Progress(for reassessment Continues documentation) Is patient on ventilator? Yes Is Patient Ambulatory and/or Out of Bed No REE-([facility]-confined to bed) 2904.456 Kcal/Kg value to use for calculation 14 Approximate Energy Requirements Using 2211 kcal/Kg Calculation Used for Recommendations Kcal/kg Additional Notes Protein: Up to 162 g (up to 2. 5 g/kg IBW) Fluids: 1,000 ml + output Nutrition Intervention Change Diet Order: TF Nutrition Support: Nepro 1.8 at 50 ml/hr Flush 215 ml q4h Kcal 2,160 Protein (gm) 97 Fluid (mL) 872 Goal #1 TF tolerance at goal rate Goal #2 Meet energy and protein needs as best as possible via TF Goal #3 Wound healing. Anticipated Discharge Needs: Nepro 1.8 at 50 ml/hr Flush 215 ml q4h Follow-Up By: 08/01/20 Additional Comments F/U for TF tolerance
--- NOTE | 2020-07-28 13:47 | Progress Note ---
Assessment and Plan Cultures: SARS CoV2 PCR: Positive 06/17/2020 blood culture: No growth 06/17/2020 sputum culture: No growth 07/15/2020 blood culture: No growth 07/15/2020 fungal blood culture: Enterococcus faecalis 07/15/2020 tracheal aspirate culture: Usual respiratory otf 07/18/2020 blood culture: no growth A/P: 59-year-old male with obesity, obesity hypoventilation syndrome: #Severe sepsis with septic shock, ?also component of hemorrhagic shock. On and off pressors. #Enterococcus bacteremia: 07/15/2020 fungal blood culture: grew Enterococcus. ?gut translocation. Interestingly other blood cultures from that day were negative. CT abdomen showed some colitis. Since repeat blood cultures negative, will finish 14 days of abx. #Anemia, GI bleed: GI on board. #Critical COVID-19 pneumonia: s/p abx, steroids and remdesivir. #Acute hypoxic respiratory failure: on the vent. Also with pneumomediastinum, subcutaneous emphysema. #Leukemoid reaction: likely multifactorial. #GIRISH: remains on HD per nephrology. Renally dose abx. #Sacral decubitus: s/p debridement by Dr. Kirk on 07/20/2020. Recs: -pressor requirements dropping, continue IV Ampicillin, renally dosed, complete 14 days ending 08/01/2020 -repeat blood cultures have been negative, however, if pressor requirements persist or worsen, exchange out lines -monitor fever and WBC G. Kassy Finney MD [facility] ([facility]) O: [phone] F: [phone] Subjective Date of service: 07/28/20 Principal diagnosis: ARF; Septic Shock; COVID-19 PNA; Atrial fibrillation; Obesity Interval history: Afebrile, no acute changes. White count elevated at 30.3. Objective - Exam Narrative Exam: Constitutional: sedated, intubated, on the vent Head, Ears, Nose: Normocephalic, atraumatic. External ears, nose normal Eyes: Conjunctivae/corneas clear. No icterus. No ptosis. Neck: intubated Oral: intubated Cardiovascular: S1, S2 + Respiratory: AE fair bilaterally and equal GI: Soft, bowel sounds + Musculoskeletal: No pedal edema, no cyanosis. Skin: No rash or abscess Hem/Lymphatic: No palpable cervical or supraclavicular nodes. Psych: no agitation Neurological: sedated, intubated, on the vent, exam limited - Constitutional Vitals: Vital Signs Temp Pulse Resp BP Pulse Ox 98.9 F 122 H 13 95/55 100 07/28/20 12:35 07/28/20 11:14 07/28/20 06:30 07/28/20 11:14 07/28/20 12:24 Temperature -Last 24 Hours Temperature 98.9 F Temperature 99.2 F Temperature 98.4 F Temperature 97.5 F Temperature 98.7 F Temperature 98.1 F Temperature 97.8 F Temperature 97.8 F Temperature 97.6 F Temperature 97 F - Labs CBC & Chem 7: 07/28/20 04:00 07/28/20 Unknown Labs: Abnormal lab results 07/24/20 07/27/20 07/27/20 Range/Units 20:38 21:45 22:36 WBC (4.5-11.0) K/mm3 RBC (3.65-5.03) M/mm3 Hgb 6.4 L (11.8-15.2) gm/dl Hct 19.8 L* (35.5-45.6) % RDW (13.2-15.2) % Potassium (3.6-5.0) mmol/L BUN (9-20) mg/dL Creatinine (0.8-1.3) mg/dL Glucose (75-100) mg/dL POC Glucose (70-105) mg/dL Calcium (8.4-10.2) mg/dL Crossmatch See Detail See Detail 07/28/20 07/28/20 07/28/20 Range/Units 00:05 04:00 06:27 WBC 30.3 H (4.5-11.0) K/mm3 RBC 2.35 L (3.65-5.03) M/mm3 Hgb 7.2 L (11.8-15.2) gm/dl Hct 21.2 L (35.5-45.6) % RDW 16.8 H (13.2-15.2) % Potassium (3.6-5.0) mmol/L BUN (9-20) mg/dL Creatinine (0.8-1.3) mg/dL Glucose (75-100) mg/dL POC Glucose 124 H 107 H (70-105) mg/dL Calcium (8.4-10.2) mg/dL Crossmatch 07/28/20 Range/Units Unknown WBC (4.5-11.0) K/mm3 RBC (3.65-5.03) M/mm3 Hgb (11.8-15.2) gm/dl Hct (35.5-45.6) % RDW (13.2-15.2) % Potassium 3.2 L (3.6-5.0) mmol/L BUN 35 H (9-20) mg/dL Creatinine 2.3 H (0.8-1.3) mg/dL Glucose 123 H (75-100) mg/dL POC Glucose (70-105) mg/dL Calcium 7.2 L (8.4-10.2) mg/dL Crossmatch
--- NOTE | 2020-07-28 14:40 | Progress Note ---
Assessment and Plan Acute hypoxemic respiratory failure due to COVID-19 Severe COVID infection Severe Sepsis with shock Bilateral pneumonia Acute kidney injury (GIRISH) with acute tubular necrosis (ATN) Elevated liver enzymes Obesity - follow CXR and address - s/p PRBC transfusion - HD/UF per nephrology prescription (discussed with mix chemist and will get today) - continue SBT with p-supp at 20 cm H2O and get ABG after 2 hours - continue care as below otherwise; - continue wound care per WCN / RN - continue on bariatric bed - continue to avoid supine position as much as possible - adjust ant-infective's per ID rec's (Ampicillin) - continue bid protonix - wean vasopressors for target MAP > 65 mmHg - continue daily SAT's & SBT's as tolerated - continue tube feeds at goal rate as tolerated - continue HD/UF per nephrology team for toxin and volume clearance - continue bowel regimen - Continue to wean supplemental oxygen for O2 sats >92% - Monitor blood pressure closely while optimizing sedation,wean vasopressor support for MAP > 65 mmHg - VAP bundle addressed, aspiration precautions HOB >40 - continue lung protective strategies, permissive hypercapnic acceptable. - continue bronchodilators with routine trach care and pulmonary hygiene per RT - wean per pulmonary driven protocols otherwise - accuchecks with glycemic control per SSI (While critically ill target blood glucose of 140-180 mg/dL; avoid hypoglycemia) - sedation prn for target RASS -1 to -2 - continue enteral nutritional support at goal rate as tolerated - on antibiotics per ID recommendations - follow clinically re: fevers / WBC - Monitor liver function test ,avoid hepatotoxic agents - azotemia per nephrology rec's - Avoid nephrotoxins, renally dose all medications, conservative fluid management - continue to avoid benzodiazepines, reduce the possibility of delirium, - prn analgesia per CPOT score - Maintenance of sleep-wake cycle, avoid delirium - Stress ulcer prophylaxis, Pantoprazole - PT/OT/ROM exercises - Mobility protocols for pressure ulcer prevention - CXR, ABG in am - CBC, CMP in am - Supportive transfusions to keep HgB >7g/dL - Monitor hemodynamics closely - continue other care per attending / other consultants COVID SPECIFIC INTERVENTIONS - s/p steroids: Dexamethasone - completed Remdesivir - monitor inflammatory markers prn - ferritin, D-dimer, CRP, LDH per facility protocol - continue anticoagulation per System Protocol based on d-dimer (on hold due to bleeding) - continue contact and airborne isolation CONDITION: CRITICAL PROGNOSIS: GUARDED CODE STATUS: FULL CODE The high probability of a clinically significant, sudden or life-threatening deterioration of the [respiratory, cardiovascular, hematologic & neurologic] system(s) required my full and direct attention, intervention and personal management. The aggregate critical care time was [35] minutes without overlap. Time includes spent on; [x] Data Review and interpretation [x] Patient assessment and monitoring of vital signs [x] Documentation [x] Medication orders and management He was evaluated in the context of the global COVID-19 pandemic, which necessitated consideration that the patient might be at risk for infection with the virus that causes COVID-19. Institutional protocols and algorithms that pertain to the evaluation of patients at risk for COVID-19 are in a state of rapid change based on information released by regulatory bodies including the CDC and federal and state organizations. These policies and algorithms were followed during the patient's care in the ICU Please note that these policies, procedures and recommendations changed on a rapid basis. Subjective Date of service: 07/28/20 Principal diagnosis: ARF; Septic Shock; COVID-19 PNA; Atrial fibrillation; Obesity Interval history: Patient is seen today for: Ac hypoxemic respiratory failure; COVID-19; Severe Sepsis with shock; Zackery. pneumonia; GIRISH; Elevated liver enzymes; Obesity Seen and examined at bedside; 24hour events reviewed; nursing and respiratory care staff consulted; no adverse overnight events reported to me; resting in bed; remains on MVS; tolerated bedside SBT much better today; visited yesterday; remains on low dose Levophed Objective Vital Signs - 12hr 07/28/20 07/28/20 07/28/20 02:40 02:50 03:00 Temperature Pulse Rate 129 H 137 H 129 H Pulse Rate [ From Monitor] Respiratory 16 17 19 Rate Blood Pressure 108/67 112/66 114/62 O2 Sat by Pulse 96 97 97 Oximetry O2 Sat by Pulse Oximetry [ Assessment] 07/28/20 07/28/20 07/28/20 03:08 03:30 04:00 Temperature 97.5 F L 98.4 F Pulse Rate 123 H 112 H Pulse Rate [ 111 H From Monitor] Respiratory 15 17 Rate Blood Pressure 115/60 106/60 O2 Sat by Pulse 96 96 Oximetry O2 Sat by Pulse Oximetry [ Assessment] 03/07/28/20 07/28/20 04:27 04:30 05:01 Temperature Pulse Rate 123 H 135 H 128 H Pulse Rate [ From Monitor] Respiratory 16 15 Rate Blood Pressure 115/59 118/61 108/63 O2 Sat by Pulse 97 96 97 Oximetry O2 Sat by Pulse Oximetry [ Assessment] 07/28/20 07/28/20 07/28/20 05:30 06:00 06:30 Temperature Pulse Rate 121 H 121 H 134 H Pulse Rate [ From Monitor] Respiratory 13 14 13 Rate Blood Pressure 122/53 109/63 113/56 O2 Sat by Pulse 98 98 99 Oximetry O2 Sat by Pulse Oximetry [ Assessment] 07/28/20 07/28/20 07/28/20 07:16 07:35 11:14 Temperature 99.2 F Pulse Rate 120 H 122 H Pulse Rate [ From Monitor] Respiratory Rate Blood Pressure 99/60 95/55 O2 Sat by Pulse 97 97 Oximetry O2 Sat by Pulse 98 Oximetry [ Assessment] 07/28/20 07/28/20 12:24 12:35 Temperature 98.9 F Pulse Rate Pulse Rate [ From Monitor] Respiratory Rate Blood Pressure O2 Sat by Pulse Oximetry O2 Sat by Pulse 100 Oximetry [ Assessment] Constitutional: appears uncomfortable, other (morbidly obese, atraumatic, normocephalic, mild resp distress, orally intubated) Eyes: non-icteric ENT: oropharynx moist, other (s/p tracheostomy) Neck: supple, no lymphadenopathy, other (Large , short neck) Effort: mildly labored Ascultation: Bilateral: diminished breath sounds, rhonchi Percussion: Bilateral: not dull Cardiovascular: irregular rhythm, other (S1,S2) Gastrointestinal: normoactive bowel sounds, soft, non-tender, non-distended (protuberant) Integumentary: rash, other (Femoral CVC, Newell catheter) Extremities: pink and warm, pulses normal, no ischemia or petechiae, edema (trace to 1+) Neurologic: non-focal exam (grossly), pupils equal and round, CN II-XII normal, other (unable to assess, sedated) Psychiatric: other (unable to assess, sedated) CBC and BMP: 07/28/20 04:00 07/28/20 Unknown ABG, PT/INR, D-dimer: ABG ABG pH 7.355 (7.320-7.450) 07/23/20 04:56 POC ABG pCO2 46.9 mmHg (32.0-48.0) 07/23/20 04:56 ABG pCO2 56.4 mm Hg 07/05/20 04:30 POC ABG pO2 75.7 mmHg (83-108) L 07/23/20 04:56 ABG pO2 151.9 mm Hg (80.0-90.0) H 07/05/20 04:30 POC ABG HCO3 25.6 07/23/20 04:56 ABG O2 Saturation 94.8 (0-100) 07/23/20 04:56 PT/INR, D-dimer PT 15.3 Sec. (12.2-14.9) H 07/24/20 20:40 INR 1.21 (0.87-1.13) H 07/24/20 20:40 D-Dimer 6608.00 ng/mlDDU (0-234) H 07/03/20 14:50 Abnormal lab findings: Abnormal Labs 06/17/20 06/17/20 06/17/20 12:33 12:33 12:33 WBC 19.5 H RBC 5.18 H Hgb 15.5 H Hct MCHC RDW Plt Count Lymph % (Auto) 3.8 L [place] % (Auto) Lymph # (Auto) 0.7 L [place] # (Auto) Eos # (Auto) Seg Neutrophils % Seg Neuts % (Manual) 99.0 H Lymphocytes % (Manual) 1.0 L Monocytes % (Manual) Basophils % (Manual) Nucleated RBC % Seg Neutrophils # 18.2 H Seg Neutrophils # Man 19.3 H Lymphocytes # (Manual) 0.2 L Monocytes # (Manual) Eosinophils # (Manual) Basophils # (Manual) PT 16.5 H INR 1.33 H APTT D-Dimer 1025.04 H Heparin Anti-Xa Level ABG pH POC ABG pCO2 POC ABG pO2 ABG pO2 ABG HCO3 ABG Hemoglobin ABG Oxyhemoglobin ABG Sodium ABG Potassium ABG Chloride ABG Glucose Carboxyhemoglobin Sodium 130 L Potassium 3.4 L Chloride 95.0 L Carbon Dioxide BUN 21 H Creatinine Glucose 137 H POC Glucose Lactic Acid Calcium 7.9 L Phosphorus Magnesium Ferritin Direct Bilirubin AST 84 H ALT 67 H Alkaline Phosphatase Lactate Dehydrogenase 437 H Total Creatine Kinase 310 H C-Reactive Protein 27.90 H Total Protein Albumin 2.9 L Triglycerides Arterial Blood Glucose Arterial Blood Ionized Calcium Urine Creatinine Urine Chloride Vancomycin Trough Coronavirus (PCR) Crossmatch 06/17/20 06/17/20 06/17/20 12:33 12:33 14:48 WBC RBC Hgb Hct MCHC RDW Plt Count Lymph % (Auto) [place] % (Auto) Lymph # (Auto) [place] # (Auto) Eos # (Auto) Seg Neutrophils % Seg Neuts % (Manual) Lymphocytes % (Manual) Monocytes % (Manual) Basophils % (Manual) Nucleated RBC % Seg Neutrophils # Seg Neutrophils # Man Lymphocytes # (Manual) Monocytes # (Manual) Eosinophils # (Manual) Basophils # (Manual) PT INR APTT D-Dimer Heparin Anti-Xa Level ABG pH POC ABG pCO2 POC ABG pO2 ABG pO2 ABG HCO3 ABG Hemoglobin ABG Oxyhemoglobin ABG Sodium ABG Potassium ABG Chloride ABG Glucose Carboxyhemoglobin Sodium Potassium Chloride Carbon Dioxide BUN Creatinine Glucose POC Glucose Lactic Acid 2.50 H* 2.20 H* Calcium Phosphorus Magnesium Ferritin 2297.0 H Direct Bilirubin AST ALT Alkaline Phosphatase Lactate Dehydrogenase Total Creatine Kinase C-Reactive Protein Total Protein Albumin Triglycerides Arterial Blood Glucose Arterial Blood Ionized Calcium Urine Creatinine Urine Chloride Vancomycin Trough Coronavirus (PCR) Crossmatch 06/17/20 06/17/20 06/17/20 14:48 14:48 14:48 WBC RBC Hgb Hct MCHC RDW Plt Count Lymph % (Auto) [place] % (Auto) Lymph # (Auto) [place] # (Auto) Eos # (Auto) Seg Neutrophils % Seg Neuts % (Manual) Lymphocytes % (Manual) Monocytes % (Manual) Basophils % (Manual) Nucleated RBC % Seg Neutrophils # Seg Neutrophils # Man Lymphocytes # (Manual) Monocytes # (Manual) Eosinophils # (Manual) Basophils # (Manual) PT INR APTT D-Dimer 939.89 H Heparin Anti-Xa Level ABG pH POC ABG pCO2 POC ABG pO2 ABG pO2 ABG HCO3 ABG Hemoglobin ABG Oxyhemoglobin ABG Sodium ABG Potassium ABG Chloride ABG Glucose Carboxyhemoglobin Sodium Potassium Chloride Carbon Dioxide BUN Creatinine Glucose 141 H POC Glucose Lactic Acid Calcium Phosphorus Magnesium Ferritin > 2000.0 H Direct Bilirubin AST ALT Alkaline Phosphatase Lactate Dehydrogenase 503 H Total Creatine Kinase C-Reactive Protein 24.70 H Total Protein Albumin Triglycerides Arterial Blood Glucose Arterial Blood Ionized Calcium Urine Creatinine Urine Chloride Vancomycin Trough Coronavirus (PCR) Crossmatch 06/17/20 06/17/20 06/17/20 16:54 19:39 23:43 WBC RBC Hgb Hct MCHC RDW Plt Count Lymph % (Auto) [place] % (Auto) Lymph # (Auto) [place] # (Auto) Eos # (Auto) Seg Neutrophils % Seg Neuts % (Manual) Lymphocytes % (Manual) Monocytes % (Manual) Basophils % (Manual) Nucleated RBC % Seg Neutrophils # Seg Neutrophils # Man Lymphocytes # (Manual) Monocytes # (Manual) Eosinophils # (Manual) Basophils # (Manual) PT INR APTT D-Dimer Heparin Anti-Xa Level ABG pH 7.571 H POC ABG pCO2 24.3 L POC ABG pO2 41.6 L ABG pO2 ABG HCO3 ABG Hemoglobin ABG Oxyhemoglobin 84.0 L ABG Sodium 131.0 L ABG Potassium ABG Chloride ABG Glucose 163 H Carboxyhemoglobin Sodium Potassium Chloride Carbon Dioxide BUN Creatinine Glucose POC Glucose 185 H Lactic Acid 2.10 H* Calcium Phosphorus Magnesium Ferritin Direct Bilirubin AST ALT Alkaline Phosphatase Lactate Dehydrogenase Total Creatine Kinase C-Reactive Protein Total Protein Albumin Triglycerides Arterial Blood Glucose 163 H Arterial Blood Ionized Calcium 4.4 L Urine Creatinine Urine Chloride Vancomycin Trough Coronavirus (PCR) Crossmatch 06/18/20 06/18/20 06/18/20 00:17 00:23 03:55 WBC RBC Hgb Hct MCHC RDW Plt Count Lymph % (Auto) [place] % (Auto) Lymph # (Auto) [place] # (Auto) Eos # (Auto) Seg Neutrophils % Seg Neuts % (Manual) Lymphocytes % (Manual) Monocytes % (Manual) Basophils % (Manual) Nucleated RBC % Seg Neutrophils # Seg Neutrophils # Man Lymphocytes # (Manual) Monocytes # (Manual) Eosinophils # (Manual) Basophils # (Manual) PT INR APTT D-Dimer Heparin Anti-Xa Level ABG pH POC ABG pCO2 POC ABG pO2 56.5 L 48.3 L ABG pO2 ABG HCO3 ABG Hemoglobin ABG Oxyhemoglobin 86.3 L 81.7 L ABG Sodium 132.9 L 131.0 L ABG Potassium ABG Chloride ABG Glucose 189 H 161 H Carboxyhemoglobin 0.4 L Sodium Potassium Chloride Carbon Dioxide BUN Creatinine Glucose POC Glucose Lactic Acid 3.80 H* Calcium Phosphorus Magnesium Ferritin Direct Bilirubin AST ALT Alkaline Phosphatase Lactate Dehydrogenase Total Creatine Kinase C-Reactive Protein Total Protein Albumin Triglycerides Arterial Blood Glucose 189 H 161 H Arterial Blood Ionized Calcium 4.3 L 4.2 L Urine Creatinine Urine Chloride Vancomycin Trough Coronavirus (PCR) Crossmatch 06/18/20 06/18/20 06/18/20 05:39 05:39 05:39 WBC 26.2 H RBC Hgb Hct MCHC RDW Plt Count Lymph % (Auto) [place] % (Auto) Lymph # (Auto) [place] # (Auto) Eos # (Auto) Seg Neutrophils % Seg Neuts % (Manual) 90.0 H Lymphocytes % (Manual) 5.0 L Monocytes % (Manual) Basophils % (Manual) Nucleated RBC % Seg Neutrophils # Seg Neutrophils # Man 23.6 H Lymphocytes # (Manual) Monocytes # (Manual) 1.3 H Eosinophils # (Manual) Basophils # (Manual) PT INR APTT D-Dimer Heparin Anti-Xa Level ABG pH POC ABG pCO2 POC ABG pO2 ABG pO2 ABG HCO3 ABG Hemoglobin ABG Oxyhemoglobin ABG Sodium ABG Potassium ABG Chloride ABG Glucose Carboxyhemoglobin Sodium 135 L Potassium Chloride 97.5 L Carbon Dioxide 21 L BUN 39 H Creatinine 1.7 H D Glucose 168 H POC Glucose Lactic Acid 3.40 H* Calcium 7.2 L Phosphorus Magnesium Ferritin Direct Bilirubin AST ALT Alkaline Phosphatase Lactate Dehydrogenase Total Creatine Kinase C-Reactive Protein Total Protein Albumin Triglycerides Arterial Blood Glucose Arterial Blood Ionized Calcium Urine Creatinine Urine Chloride Vancomycin Trough Coronavirus (PCR) Crossmatch 06/18/20 06/18/20 06/18/20 07:24 09:00 10:10 WBC RBC Hgb Hct MCHC RDW Plt Count Lymph % (Auto) [place] % (Auto) Lymph # (Auto) [place] # (Auto) Eos # (Auto) Seg Neutrophils % Seg Neuts % (Manual) Lymphocytes % (Manual) Monocytes % (Manual) Basophils % (Manual) Nucleated RBC % Seg Neutrophils # Seg Neutrophils # Man Lymphocytes # (Manual) Monocytes # (Manual) Eosinophils # (Manual) Basophils # (Manual) PT INR APTT D-Dimer Heparin Anti-Xa Level ABG pH POC ABG pCO2 POC ABG pO2 ABG pO2 ABG HCO3 ABG Hemoglobin ABG Oxyhemoglobin ABG Sodium ABG Potassium ABG Chloride ABG Glucose Carboxyhemoglobin Sodium Potassium Chloride Carbon Dioxide BUN Creatinine Glucose POC Glucose Lactic Acid 2.90 H* 3.20 H* Calcium Phosphorus Magnesium Ferritin Direct Bilirubin AST ALT Alkaline Phosphatase Lactate Dehydrogenase Total Creatine Kinase C-Reactive Protein Total Protein Albumin Triglycerides Arterial Blood Glucose Arterial Blood Ionized Calcium Urine Creatinine Urine Chloride Vancomycin Trough Coronavirus (PCR) Positive A Crossmatch 06/18/20 06/18/20 06/18/20 11:58 14:43 15:00 WBC RBC Hgb Hct MCHC RDW Plt Count Lymph % (Auto) [place] % (Auto) Lymph # (Auto) [place] # (Auto) Eos # (Auto) Seg Neutrophils % Seg Neuts % (Manual) Lymphocytes % (Manual) Monocytes % (Manual) Basophils % (Manual) Nucleated RBC % Seg Neutrophils # Seg Neutrophils # Man Lymphocytes # (Manual) Monocytes # (Manual) Eosinophils # (Manual) Basophils # (Manual) PT INR APTT D-Dimer Heparin Anti-Xa Level ABG pH 7.303 L POC ABG pCO2 POC ABG pO2 82.3 L ABG pO2 ABG HCO3 ABG Hemoglobin ABG Oxyhemoglobin ABG Sodium 135.3 L ABG Potassium ABG Chloride ABG Glucose 215 H Carboxyhemoglobin 0.3 L Sodium Potassium Chloride Carbon Dioxide BUN Creatinine Glucose POC Glucose 209 H Lactic Acid Calcium Phosphorus Magnesium Ferritin Direct Bilirubin AST ALT Alkaline Phosphatase Lactate Dehydrogenase Total Creatine Kinase C-Reactive Protein Total Protein Albumin Triglycerides Arterial Blood Glucose 215 H Arterial Blood Ionized Calcium 4.2 L Urine Creatinine 192.4 H Urine Chloride 31.1 L Vancomycin Trough Coronavirus (PCR) Crossmatch 06/18/20 06/18/20 06/18/20 17:16 19:44 20:33 WBC RBC Hgb Hct MCHC RDW Plt Count Lymph % (Auto) [place] % (Auto) Lymph # (Auto) [place] # (Auto) Eos # (Auto) Seg Neutrophils % Seg Neuts % (Manual) Lymphocytes % (Manual) Monocytes % (Manual) Basophils % (Manual) Nucleated RBC % Seg Neutrophils # Seg Neutrophils # Man Lymphocytes # (Manual) Monocytes # (Manual) Eosinophils # (Manual) Basophils # (Manual) PT INR APTT D-Dimer Heparin Anti-Xa Level ABG pH POC ABG pCO2 POC ABG pO2 ABG pO2 ABG HCO3 ABG Hemoglobin ABG Oxyhemoglobin ABG Sodium ABG Potassium ABG Chloride ABG Glucose Carboxyhemoglobin Sodium Potassium Chloride Carbon Dioxide BUN Creatinine Glucose POC Glucose 182 H Lactic Acid 3.00 H* Calcium Phosphorus Magnesium 2.70 H Ferritin Direct Bilirubin AST ALT Alkaline Phosphatase Lactate Dehydrogenase Total Creatine Kinase C-Reactive Protein Total Protein Albumin Triglycerides Arterial Blood Glucose Arterial Blood Ionized Calcium Urine Creatinine Urine Chloride Vancomycin Trough Coronavirus (PCR) Crossmatch 06/18/20 06/19/20 06/19/20 23:43 04:00 04:00 WBC 31.6 H RBC Hgb Hct MCHC RDW Plt Count Lymph % (Auto) [place] % (Auto) Lymph # (Auto) [place] # (Auto) Eos # (Auto) Seg Neutrophils % Seg Neuts % (Manual) 98.0 H Lymphocytes % (Manual) 0.5 L Monocytes % (Manual) Basophils % (Manual) Nucleated RBC % Seg Neutrophils # Seg Neutrophils # Man 31.0 H Lymphocytes # (Manual) 0.2 L Monocytes # (Manual) Eosinophils # (Manual) Basophils # (Manual) PT INR APTT D-Dimer Heparin Anti-Xa Level ABG pH POC ABG pCO2 POC ABG pO2 ABG pO2 ABG HCO3 ABG Hemoglobin ABG Oxyhemoglobin ABG Sodium ABG Potassium ABG Chloride ABG Glucose Carboxyhemoglobin Sodium Potassium Chloride Carbon Dioxide BUN 56 H Creatinine 1.6 H Glucose 176 H POC Glucose 149 H Lactic Acid Calcium 7.0 L Phosphorus Magnesium Ferritin Direct Bilirubin AST 244 H ALT 159 H Alkaline Phosphatase Lactate Dehydrogenase Total Creatine Kinase C-Reactive Protein Total Protein 4.9 L D Albumin 2.5 L Triglycerides Arterial Blood Glucose Arterial Blood Ionized Calcium Urine Creatinine Urine Chloride Vancomycin Trough Coronavirus (PCR) Crossmatch 06/19/20 06/19/20 06/19/20 04:00 05:44 11:42 WBC RBC Hgb Hct MCHC RDW Plt Count Lymph % (Auto) [place] % (Auto) Lymph # (Auto) [place] # (Auto) Eos # (Auto) Seg Neutrophils % Seg Neuts % (Manual) Lymphocytes % (Manual) Monocytes % (Manual) Basophils % (Manual) Nucleated RBC % Seg Neutrophils # Seg Neutrophils # Man Lymphocytes # (Manual) Monocytes # (Manual) Eosinophils # (Manual) Basophils # (Manual) PT INR APTT D-Dimer Heparin Anti-Xa Level ABG pH 7.265 L POC ABG pCO2 51.8 H POC ABG pO2 65.1 L ABG pO2 ABG HCO3 ABG Hemoglobin ABG Oxyhemoglobin ABG Sodium ABG Potassium ABG Chloride ABG Glucose 184 H Carboxyhemoglobin Sodium Potassium Chloride Carbon Dioxide BUN Creatinine Glucose POC Glucose 156 H 191 H Lactic Acid Calcium Phosphorus Magnesium Ferritin Direct Bilirubin AST ALT Alkaline Phosphatase Lactate Dehydrogenase Total Creatine Kinase C-Reactive Protein Total Protein Albumin Triglycerides Arterial Blood Glucose 184 H Arterial Blood Ionized Calcium 4.3 L Urine Creatinine Urine Chloride Vancomycin Trough Coronavirus (PCR) Crossmatch 06/19/20 06/19/20 06/19/20 12:30 17:16 18:36 WBC RBC Hgb Hct MCHC RDW Plt Count Lymph % (Auto) [place] % (Auto) Lymph # (Auto) [place] # (Auto) Eos # (Auto) Seg Neutrophils % Seg Neuts % (Manual) Lymphocytes % (Manual) Monocytes % (Manual) Basophils % (Manual) Nucleated RBC % Seg Neutrophils # Seg Neutrophils # Man Lymphocytes # (Manual) Monocytes # (Manual) Eosinophils # (Manual) Basophils # (Manual) PT 16.4 H INR 1.32 H APTT D-Dimer Heparin Anti-Xa Level ABG pH 7.088 L POC ABG pCO2 78.1 H POC ABG pO2 208.3 H ABG pO2 ABG HCO3 ABG Hemoglobin ABG Oxyhemoglobin 98.3 H ABG Sodium ABG Potassium 5.0 H ABG Chloride ABG Glucose 182 H Carboxyhemoglobin 0.4 L Sodium Potassium Chloride Carbon Dioxide BUN Creatinine Glucose POC Glucose 154 H Lactic Acid Calcium Phosphorus Magnesium Ferritin Direct Bilirubin AST ALT Alkaline Phosphatase Lactate Dehydrogenase Total Creatine Kinase C-Reactive Protein Total Protein Albumin Triglycerides Arterial Blood Glucose 182 H Arterial Blood Ionized Calcium 4.3 L Urine Creatinine Urine Chloride Vancomycin Trough Coronavirus (PCR) Crossmatch 06/19/20 06/20/20 06/20/20 23:32 03:00 05:19 WBC RBC Hgb Hct MCHC RDW Plt Count Lymph % (Auto) [place] % (Auto) Lymph # (Auto) [place] # (Auto) Eos # (Auto) Seg Neutrophils % Seg Neuts % (Manual) Lymphocytes % (Manual) Monocytes % (Manual) Basophils % (Manual) Nucleated RBC % Seg Neutrophils # Seg Neutrophils # Man Lymphocytes # (Manual) Monocytes # (Manual) Eosinophils # (Manual) Basophils # (Manual) PT INR APTT D-Dimer Heparin Anti-Xa Level 0.77 H ABG pH POC ABG pCO2 POC ABG pO2 ABG pO2 ABG HCO3 ABG Hemoglobin ABG Oxyhemoglobin ABG Sodium ABG Potassium ABG Chloride ABG Glucose Carboxyhemoglobin Sodium Potassium Chloride Carbon Dioxide BUN Creatinine Glucose POC Glucose 201 H 190 H Lactic Acid Calcium Phosphorus Magnesium Ferritin Direct Bilirubin AST ALT Alkaline Phosphatase Lactate Dehydrogenase Total Creatine Kinase C-Reactive Protein Total Protein Albumin Triglycerides Arterial Blood Glucose Arterial Blood Ionized Calcium Urine Creatinine Urine Chloride Vancomycin Trough Coronavirus (PCR) Crossmatch 06/20/20 06/20/20 06/20/20 08:25 08:25 11:36 WBC RBC Hgb Hct MCHC RDW Plt Count Lymph % (Auto) [place] % (Auto) Lymph # (Auto) [place] # (Auto) Eos # (Auto) Seg Neutrophils % Seg Neuts % (Manual) Lymphocytes % (Manual) Monocytes % (Manual) Basophils % (Manual) Nucleated RBC % Seg Neutrophils # Seg Neutrophils # Man Lymphocytes # (Manual) Monocytes # (Manual) Eosinophils # (Manual) Basophils # (Manual) PT INR APTT D-Dimer Heparin Anti-Xa Level ABG pH POC ABG pCO2 POC ABG pO2 ABG pO2 ABG HCO3 ABG Hemoglobin ABG Oxyhemoglobin ABG Sodium ABG Potassium ABG Chloride ABG Glucose Carboxyhemoglobin Sodium 135 L Potassium 5.4 H Chloride 109.2 H Carbon Dioxide 19 L BUN 68 H Creatinine 2.5 H D Glucose 201 H POC Glucose 184 H Lactic Acid Calcium 5.5 L* D Phosphorus Magnesium Ferritin Direct Bilirubin AST 123 H ALT 86 H Alkaline Phosphatase Lactate Dehydrogenase Total Creatine Kinase C-Reactive Protein Total Protein 4.6 L Albumin 1.5 L Triglycerides Arterial Blood Glucose Arterial Blood Ionized Calcium Urine Creatinine Urine Chloride Vancomycin Trough 22.7 H Coronavirus (PCR) Crossmatch 06/20/20 06/20/20 06/20/20 11:40 17:28 20:00 WBC RBC Hgb Hct MCHC RDW Plt Count Lymph % (Auto) [place] % (Auto) Lymph # (Auto) [place] # (Auto) Eos # (Auto) Seg Neutrophils % Seg Neuts % (Manual) Lymphocytes % (Manual) Monocytes % (Manual) Basophils % (Manual) Nucleated RBC % Seg Neutrophils # Seg Neutrophils # Man Lymphocytes # (Manual) Monocytes # (Manual) Eosinophils # (Manual) Basophils # (Manual) PT INR APTT D-Dimer Heparin Anti-Xa Level 0.89 H ABG pH 7.099 L POC ABG pCO2 61.1 H POC ABG pO2 ABG pO2 ABG HCO3 ABG Hemoglobin ABG Oxyhemoglobin ABG Sodium ABG Potassium 5.0 H ABG Chloride 111.0 H ABG Glucose 200 H Carboxyhemoglobin 0.4 L Sodium Potassium Chloride Carbon Dioxide BUN Creatinine Glucose POC Glucose 165 H Lactic Acid Calcium Phosphorus Magnesium Ferritin Direct Bilirubin AST ALT Alkaline Phosphatase Lactate Dehydrogenase Total Creatine Kinase C-Reactive Protein Total Protein Albumin Triglycerides Arterial Blood Glucose 200 H Arterial Blood Ionized Calcium 4.2 L Urine Creatinine Urine Chloride Vancomycin Trough Coronavirus (PCR) Crossmatch 06/20/20 06/21/20 06/21/20 23:29 05:00 05:20 WBC RBC Hgb Hct MCHC RDW Plt Count Lymph % (Auto) [place] % (Auto) Lymph # (Auto) [place] # (Auto) Eos # (Auto) Seg Neutrophils % Seg Neuts % (Manual) Lymphocytes % (Manual) Monocytes % (Manual) Basophils % (Manual) Nucleated RBC % Seg Neutrophils # Seg Neutrophils # Man Lymphocytes # (Manual) Monocytes # (Manual) Eosinophils # (Manual) Basophils # (Manual) PT INR APTT D-Dimer Heparin Anti-Xa Level ABG pH POC ABG pCO2 POC ABG pO2 ABG pO2 ABG HCO3 ABG Hemoglobin ABG Oxyhemoglobin ABG Sodium ABG Potassium ABG Chloride ABG Glucose Carboxyhemoglobin Sodium Potassium Chloride 112.0 H Carbon Dioxide 20 L BUN 92 H Creatinine 3.9 H D Glucose 214 H POC Glucose 145 H 191 H Lactic Acid Calcium 6.5 L D Phosphorus Magnesium Ferritin Direct Bilirubin AST 98 H ALT 84 H Alkaline Phosphatase Lactate Dehydrogenase Total Creatine Kinase C-Reactive Protein Total Protein 4.6 L Albumin 2.1 L Triglycerides 180 H Arterial Blood Glucose Arterial Blood Ionized Calcium Urine Creatinine Urine Chloride Vancomycin Trough Coronavirus (PCR) Crossmatch 06/21/20 06/21/20 06/21/20 08:56 11:12 12:43 WBC RBC Hgb Hct MCHC RDW Plt Count Lymph % (Auto) [place] % (Auto) Lymph # (Auto) [place] # (Auto) Eos # (Auto) Seg Neutrophils % Seg Neuts % (Manual) Lymphocytes % (Manual) Monocytes % (Manual) Basophils % (Manual) Nucleated RBC % Seg Neutrophils # Seg Neutrophils # Man Lymphocytes # (Manual) Monocytes # (Manual) Eosinophils # (Manual) Basophils # (Manual) PT INR APTT D-Dimer Heparin Anti-Xa Level 0.28 L ABG pH 7.184 L POC ABG pCO2 48.3 H POC ABG pO2 172.1 H ABG pO2 ABG HCO3 ABG Hemoglobin ABG Oxyhemoglobin 98.7 H ABG Sodium ABG Potassium 4.9 H ABG Chloride 112.0 H ABG Glucose 196 H Carboxyhemoglobin 0.2 L Sodium Potassium Chloride Carbon Dioxide BUN Creatinine Glucose POC Glucose 177 H Lactic Acid Calcium Phosphorus Magnesium Ferritin Direct Bilirubin AST ALT Alkaline Phosphatase Lactate Dehydrogenase Total Creatine Kinase C-Reactive Protein Total Protein Albumin Triglycerides Arterial Blood Glucose 196 H Arterial Blood Ionized Calcium 4.1 L Urine Creatinine Urine Chloride Vancomycin Trough Coronavirus (PCR) Crossmatch 06/21/20 06/21/20 06/22/20 16:31 Unknown 00:12 WBC RBC Hgb Hct MCHC RDW Plt Count Lymph % (Auto) [place] % (Auto) Lymph # (Auto) [place] # (Auto) Eos # (Auto) Seg Neutrophils % Seg Neuts % (Manual) Lymphocytes % (Manual) Monocytes % (Manual) Basophils % (Manual) Nucleated RBC % Seg Neutrophils # Seg Neutrophils # Man Lymphocytes # (Manual) Monocytes # (Manual) Eosinophils # (Manual) Basophils # (Manual) PT INR APTT D-Dimer Heparin Anti-Xa Level 0.78 H ABG pH POC ABG pCO2 POC ABG pO2 ABG pO2 ABG HCO3 ABG Hemoglobin ABG Oxyhemoglobin ABG Sodium ABG Potassium ABG Chloride ABG Glucose Carboxyhemoglobin Sodium Potassium Chloride Carbon Dioxide BUN Creatinine Glucose POC Glucose 150 H 173 H Lactic Acid Calcium Phosphorus Magnesium Ferritin Direct Bilirubin AST ALT Alkaline Phosphatase Lactate Dehydrogenase Total Creatine Kinase C-Reactive Protein Total Protein Albumin Triglycerides Arterial Blood Glucose Arterial Blood Ionized Calcium Urine Creatinine Urine Chloride Vancomycin Trough Coronavirus (PCR) Crossmatch 06/22/20 06/22/20 06/22/20 04:00 05:04 05:30 WBC 33.9 H RBC Hgb 11.7 L Hct 35.2 L MCHC RDW 15.8 H Plt Count Lymph % (Auto) [place] % (Auto) Lymph # (Auto) [place] # (Auto) Eos # (Auto) Seg Neutrophils % Seg Neuts % (Manual) 93.0 H Lymphocytes % (Manual) 5.0 L Monocytes % (Manual) Basophils % (Manual) Nucleated RBC % Seg Neutrophils # Seg Neutrophils # Man 31.5 H Lymphocytes # (Manual) Monocytes # (Manual) Eosinophils # (Manual) Basophils # (Manual) PT INR APTT D-Dimer Heparin Anti-Xa Level ABG pH 7.169 L POC ABG pCO2 POC ABG pO2 ABG pO2 ABG HCO3 ABG Hemoglobin ABG Oxyhemoglobin ABG Sodium ABG Potassium 5.1 H ABG Chloride 112.0 H ABG Glucose 186 H Carboxyhemoglobin 0.3 L Sodium Potassium Chloride Carbon Dioxide BUN Creatinine Glucose POC Glucose 161 H Lactic Acid Calcium Phosphorus Magnesium Ferritin Direct Bilirubin AST ALT Alkaline Phosphatase Lactate Dehydrogenase Total Creatine Kinase C-Reactive Protein Total Protein Albumin Triglycerides Arterial Blood Glucose 186 H Arterial Blood Ionized Calcium 4.1 L Urine Creatinine Urine Chloride Vancomycin Trough Coronavirus (PCR) Crossmatch 06/22/20 06/22/20 06/22/20 05:30 11:39 13:27 WBC RBC Hgb Hct MCHC RDW Plt Count Lymph % (Auto) [place] % (Auto) Lymph # (Auto) [place] # (Auto) Eos # (Auto) Seg Neutrophils % Seg Neuts % (Manual) Lymphocytes % (Manual) Monocytes % (Manual) Basophils % (Manual) Nucleated RBC % Seg Neutrophils # Seg Neutrophils # Man Lymphocytes # (Manual) Monocytes # (Manual) Eosinophils # (Manual) Basophils # (Manual) PT INR APTT D-Dimer Heparin Anti-Xa Level ABG pH POC ABG pCO2 POC ABG pO2 ABG pO2 ABG HCO3 ABG Hemoglobin ABG Oxyhemoglobin ABG Sodium ABG Potassium ABG Chloride ABG Glucose Carboxyhemoglobin Sodium Potassium 5.7 H Chloride 111.3 H Carbon Dioxide 18 L BUN 112 H Creatinine 5.0 H Glucose 173 H POC Glucose 172 H 176 H Lactic Acid Calcium 6.7 L Phosphorus Magnesium Ferritin Direct Bilirubin AST ALT Alkaline Phosphatase Lactate Dehydrogenase Total Creatine Kinase C-Reactive Protein Total Protein Albumin Triglycerides Arterial Blood Glucose Arterial Blood Ionized Calcium Urine Creatinine Urine Chloride Vancomycin Trough Coronavirus (PCR) Crossmatch 06/22/20 06/22/20 06/22/20 14:37 17:00 17:40 WBC RBC Hgb Hct MCHC RDW Plt Count Lymph % (Auto) [place] % (Auto) Lymph # (Auto) [place] # (Auto) Eos # (Auto) Seg Neutrophils % Seg Neuts % (Manual) Lymphocytes % (Manual) Monocytes % (Manual) Basophils % (Manual) Nucleated RBC % Seg Neutrophils # Seg Neutrophils # Man Lymphocytes # (Manual) Monocytes # (Manual) Eosinophils # (Manual) Basophils # (Manual) PT INR APTT D-Dimer Heparin Anti-Xa Level 1.32 H ABG pH POC ABG pCO2 POC ABG pO2 ABG pO2 ABG HCO3 ABG Hemoglobin ABG Oxyhemoglobin ABG Sodium ABG Potassium ABG Chloride ABG Glucose Carboxyhemoglobin Sodium Potassium Chloride Carbon Dioxide BUN Creatinine Glucose POC Glucose 171 H Lactic Acid Calcium Phosphorus Magnesium Ferritin Direct Bilirubin AST ALT Alkaline Phosphatase Lactate Dehydrogenase Total Creatine Kinase C-Reactive Protein 5.30 H Total Protein Albumin Triglycerides Arterial Blood Glucose Arterial Blood Ionized Calcium Urine Creatinine Urine Chloride Vancomycin Trough Coronavirus (PCR) Crossmatch 06/22/20 06/23/20 06/23/20 23:36 02:13 02:41 WBC RBC Hgb Hct MCHC RDW Plt Count Lymph % (Auto) [place] % (Auto) Lymph # (Auto) [place] # (Auto) Eos # (Auto) Seg Neutrophils % Seg Neuts % (Manual) Lymphocytes % (Manual) Monocytes % (Manual) Basophils % (Manual) Nucleated RBC % Seg Neutrophils # Seg Neutrophils # Man Lymphocytes # (Manual) Monocytes # (Manual) Eosinophils # (Manual) Basophils # (Manual) PT INR APTT D-Dimer Heparin Anti-Xa Level 0.21 L ABG pH 7.318 L POC ABG pCO2 POC ABG pO2 157.5 H ABG pO2 ABG HCO3 ABG Hemoglobin ABG Oxyhemoglobin ABG Sodium 135.6 L ABG Potassium 4.6 H ABG Chloride 110.0 H ABG Glucose 169 H Carboxyhemoglobin Sodium Potassium Chloride Carbon Dioxide BUN Creatinine Glucose POC Glucose 155 H Lactic Acid Calcium Phosphorus Magnesium Ferritin Direct Bilirubin AST ALT Alkaline Phosphatase Lactate Dehydrogenase Total Creatine Kinase C-Reactive Protein Total Protein Albumin Triglycerides Arterial Blood Glucose 169 H Arterial Blood Ionized Calcium Urine Creatinine Urine Chloride Vancomycin Trough Coronavirus (PCR) Crossmatch 06/23/20 06/23/20 06/23/20 04:00 04:00 05:24 WBC 27.4 H RBC Hgb 11.3 L Hct 33.8 L MCHC RDW Plt Count Lymph % (Auto) [place] % (Auto) Lymph # (Auto) [place] # (Auto) Eos # (Auto) Seg Neutrophils % Seg Neuts % (Manual) 93.0 H Lymphocytes % (Manual) 1.0 L Monocytes % (Manual) Basophils % (Manual) Nucleated RBC % 1.0 H Seg Neutrophils # Seg Neutrophils # Man 25.5 H Lymphocytes # (Manual) 0.3 L Monocytes # (Manual) 1.1 H Eosinophils # (Manual) Basophils # (Manual) PT INR APTT D-Dimer Heparin Anti-Xa Level ABG pH POC ABG pCO2 POC ABG pO2 ABG pO2 ABG HCO3 ABG Hemoglobin ABG Oxyhemoglobin ABG Sodium ABG Potassium ABG Chloride ABG Glucose Carboxyhemoglobin Sodium Potassium Chloride 107.6 H Carbon Dioxide 20 L BUN 100 H Creatinine 4.7 H Glucose 168 H POC Glucose 151 H Lactic Acid Calcium Phosphorus Magnesium Ferritin Direct Bilirubin AST ALT Alkaline Phosphatase Lactate Dehydrogenase Total Creatine Kinase C-Reactive Protein Total Protein Albumin Triglycerides Arterial Blood Glucose Arterial Blood Ionized Calcium Urine Creatinine Urine Chloride Vancomycin Trough Coronavirus (PCR) Crossmatch 06/23/20 06/23/20 06/23/20 11:30 17:18 23:50 WBC RBC Hgb Hct MCHC RDW Plt Count Lymph % (Auto) [place] % (Auto) Lymph # (Auto) [place] # (Auto) Eos # (Auto) Seg Neutrophils % Seg Neuts % (Manual) Lymphocytes % (Manual) Monocytes % (Manual) Basophils % (Manual) Nucleated RBC % Seg Neutrophils # Seg Neutrophils # Man Lymphocytes # (Manual) Monocytes # (Manual) Eosinophils # (Manual) Basophils # (Manual) PT INR APTT D-Dimer Heparin Anti-Xa Level ABG pH POC ABG pCO2 POC ABG pO2 ABG pO2 ABG HCO3 ABG Hemoglobin ABG Oxyhemoglobin ABG Sodium ABG Potassium ABG Chloride ABG Glucose Carboxyhemoglobin Sodium Potassium Chloride Carbon Dioxide BUN Creatinine Glucose POC Glucose 157 H 156 H 162 H Lactic Acid Calcium Phosphorus Magnesium Ferritin Direct Bilirubin AST ALT Alkaline Phosphatase Lactate Dehydrogenase Total Creatine Kinase C-Reactive Protein Total Protein Albumin Triglycerides Arterial Blood Glucose Arterial Blood Ionized Calcium Urine Creatinine Urine Chloride Vancomycin Trough Coronavirus (PCR) Crossmatch 06/24/20 06/24/20 06/24/20 04:41 05:57 06:30 WBC 34.3 H RBC Hgb 10.9 L Hct 32.6 L MCHC RDW Plt Count Lymph % (Auto) 2.0 L [place] % (Auto) Lymph # (Auto) 0.7 L [place] # (Auto) 1.2 H Eos # (Auto) Seg Neutrophils % Seg Neuts % (Manual) 96.0 H Lymphocytes % (Manual) 3.0 L Monocytes % (Manual) Basophils % (Manual) Nucleated RBC % Seg Neutrophils # 32.3 H Seg Neutrophils # Man 32.9 H Lymphocytes # (Manual) 1.0 L Monocytes # (Manual) Eosinophils # (Manual) Basophils # (Manual) PT INR APTT D-Dimer Heparin Anti-Xa Level ABG pH POC ABG pCO2 POC ABG pO2 71.1 L ABG pO2 ABG HCO3 ABG Hemoglobin ABG Oxyhemoglobin 92.4 L ABG Sodium 115.6 L ABG Potassium ABG Chloride ABG Glucose 159 H Carboxyhemoglobin Sodium Potassium Chloride Carbon Dioxide BUN Creatinine Glucose POC Glucose 143 H Lactic Acid Calcium Phosphorus Magnesium Ferritin Direct Bilirubin AST ALT Alkaline Phosphatase Lactate Dehydrogenase Total Creatine Kinase C-Reactive Protein Total Protein Albumin Triglycerides Arterial Blood Glucose 159 H Arterial Blood Ionized Calcium 4.2 L Urine Creatinine Urine Chloride Vancomycin Trough Coronavirus (PCR) Crossmatch 06/24/20 06/24/20 06/24/20 07:03 09:37 11:56 WBC RBC Hgb Hct MCHC RDW Plt Count Lymph % (Auto) [place] % (Auto) Lymph # (Auto) [place] # (Auto) Eos # (Auto) Seg Neutrophils % Seg Neuts % (Manual) Lymphocytes % (Manual) Monocytes % (Manual) Basophils % (Manual) Nucleated RBC % Seg Neutrophils # Seg Neutrophils # Man Lymphocytes # (Manual) Monocytes # (Manual) Eosinophils # (Manual) Basophils # (Manual) PT INR APTT D-Dimer Heparin Anti-Xa Level 0.26 L ABG pH POC ABG pCO2 POC ABG pO2 ABG pO2 ABG HCO3 ABG Hemoglobin ABG Oxyhemoglobin ABG Sodium ABG Potassium ABG Chloride ABG Glucose Carboxyhemoglobin Sodium Potassium 5.1 H Chloride Carbon Dioxide BUN 103 H Creatinine 5.0 H Glucose 163 H POC Glucose 149 H Lactic Acid Calcium 7.6 L Phosphorus Magnesium Ferritin Direct Bilirubin AST ALT Alkaline Phosphatase Lactate Dehydrogenase Total Creatine Kinase C-Reactive Protein Total Protein Albumin Triglycerides Arterial Blood Glucose Arterial Blood Ionized Calcium Urine Creatinine Urine Chloride Vancomycin Trough Coronavirus (PCR) Crossmatch 06/24/20 06/25/20 06/25/20 18:09 01:05 03:00 WBC RBC Hgb 10.6 L Hct 32.1 L MCHC RDW Plt Count Lymph % (Auto) [place] % (Auto) Lymph # (Auto) [place] # (Auto) Eos # (Auto) Seg Neutrophils % Seg Neuts % (Manual) Lymphocytes % (Manual) Monocytes % (Manual) Basophils % (Manual) Nucleated RBC % Seg Neutrophils # Seg Neutrophils # Man Lymphocytes # (Manual) Monocytes # (Manual) Eosinophils # (Manual) Basophils # (Manual) PT INR APTT D-Dimer Heparin Anti-Xa Level ABG pH POC ABG pCO2 POC ABG pO2 ABG pO2 ABG HCO3 ABG Hemoglobin ABG Oxyhemoglobin ABG Sodium ABG Potassium ABG Chloride ABG Glucose Carboxyhemoglobin Sodium Potassium Chloride Carbon Dioxide BUN Creatinine Glucose POC Glucose 141 H 137 H Lactic Acid Calcium Phosphorus Magnesium Ferritin Direct Bilirubin AST ALT Alkaline Phosphatase Lactate Dehydrogenase Total Creatine Kinase C-Reactive Protein Total Protein Albumin Triglycerides Arterial Blood Glucose Arterial Blood Ionized Calcium Urine Creatinine Urine Chloride Vancomycin Trough Coronavirus (PCR) Crossmatch 06/25/20 06/25/20 06/25/20 03:48 05:17 12:08 WBC RBC Hgb Hct MCHC RDW Plt Count Lymph % (Auto) [place] % (Auto) Lymph # (Auto) [place] # (Auto) Eos # (Auto) Seg Neutrophils % Seg Neuts % (Manual) Lymphocytes % (Manual) Monocytes % (Manual) Basophils % (Manual) Nucleated RBC % Seg Neutrophils # Seg Neutrophils # Man Lymphocytes # (Manual) Monocytes # (Manual) Eosinophils # (Manual) Basophils # (Manual) PT INR APTT D-Dimer Heparin Anti-Xa Level ABG pH POC ABG pCO2 29.4 L POC ABG pO2 67.1 L ABG pO2 ABG HCO3 ABG Hemoglobin 11.5 L ABG Oxyhemoglobin ABG Sodium 124.1 L ABG Potassium 4.6 H ABG Chloride ABG Glucose 159 H Carboxyhemoglobin Sodium Potassium Chloride Carbon Dioxide BUN Creatinine Glucose POC Glucose 149 H 150 H Lactic Acid Calcium Phosphorus Magnesium Ferritin Direct Bilirubin AST ALT Alkaline Phosphatase Lactate Dehydrogenase Total Creatine Kinase C-Reactive Protein Total Protein Albumin Triglycerides Arterial Blood Glucose 159 H Arterial Blood Ionized Calcium 4.2 L Urine Creatinine Urine Chloride Vancomycin Trough Coronavirus (PCR) Crossmatch 06/25/20 06/25/20 06/25/20 16:27 16:35 17:27 WBC RBC Hgb Hct MCHC RDW Plt Count Lymph % (Auto) [place] % (Auto) Lymph # (Auto) [place] # (Auto) Eos # (Auto) Seg Neutrophils % Seg Neuts % (Manual) Lymphocytes % (Manual) Monocytes % (Manual) Basophils % (Manual) Nucleated RBC % Seg Neutrophils # Seg Neutrophils # Man Lymphocytes # (Manual) Monocytes # (Manual) Eosinophils # (Manual) Basophils # (Manual) PT INR APTT D-Dimer Heparin Anti-Xa Level < 0.10 L ABG pH POC ABG pCO2 POC ABG pO2 ABG pO2 ABG HCO3 ABG Hemoglobin ABG Oxyhemoglobin ABG Sodium ABG Potassium ABG Chloride ABG Glucose Carboxyhemoglobin Sodium Potassium Chloride Carbon Dioxide BUN Creatinine Glucose POC Glucose 143 H 156 H Lactic Acid Calcium Phosphorus Magnesium Ferritin Direct Bilirubin AST ALT Alkaline Phosphatase Lactate Dehydrogenase Total Creatine Kinase C-Reactive Protein Total Protein Albumin Triglycerides Arterial Blood Glucose Arterial Blood Ionized Calcium Urine Creatinine Urine Chloride Vancomycin Trough Coronavirus (PCR) Crossmatch 06/25/20 06/25/20 06/25/20 20:00 20:55 23:10 WBC 32.7 H RBC 3.06 L Hgb 9.0 L 9.5 L Hct 26.7 L 28.6 L MCHC RDW Plt Count Lymph % (Auto) [place] % (Auto) Lymph # (Auto) [place] # (Auto) Eos # (Auto) Seg Neutrophils % Seg Neuts % (Manual) Lymphocytes % (Manual) 2.0 L Monocytes % (Manual) Basophils % (Manual) Nucleated RBC % Seg Neutrophils # Seg Neutrophils # Man 30.7 H Lymphocytes # (Manual) 0.7 L Monocytes # (Manual) 1.3 H Eosinophils # (Manual) Basophils # (Manual) PT 17.7 H INR 1.47 H APTT 65.8 H* D-Dimer Heparin Anti-Xa Level ABG pH POC ABG pCO2 POC ABG pO2 ABG pO2 ABG HCO3 ABG Hemoglobin ABG Oxyhemoglobin ABG Sodium ABG Potassium ABG Chloride ABG Glucose Carboxyhemoglobin Sodium Potassium Chloride Carbon Dioxide BUN Creatinine Glucose POC Glucose Lactic Acid Calcium Phosphorus Magnesium Ferritin Direct Bilirubin AST ALT Alkaline Phosphatase Lactate Dehydrogenase Total Creatine Kinase C-Reactive Protein Total Protein Albumin Triglycerides Arterial Blood Glucose Arterial Blood Ionized Calcium Urine Creatinine Urine Chloride Vancomycin Trough Coronavirus (PCR) Crossmatch 06/25/20 06/26/20 06/26/20 23:14 01:30 03:25 WBC RBC Hgb Hct MCHC RDW Plt Count Lymph % (Auto) [place] % (Auto) Lymph # (Auto) [place] # (Auto) Eos # (Auto) Seg Neutrophils % Seg Neuts % (Manual) Lymphocytes % (Manual) Monocytes % (Manual) Basophils % (Manual) Nucleated RBC % Seg Neutrophils # Seg Neutrophils # Man Lymphocytes # (Manual) Monocytes # (Manual) Eosinophils # (Manual) Basophils # (Manual) PT INR APTT D-Dimer Heparin Anti-Xa Level < 0.10 L ABG pH POC ABG pCO2 POC ABG pO2 ABG pO2 ABG HCO3 ABG Hemoglobin 11.8 L ABG Oxyhemoglobin ABG Sodium 127.1 L ABG Potassium 5.4 H ABG Chloride ABG Glucose 155 H Carboxyhemoglobin 0.3 L Sodium Potassium Chloride Carbon Dioxide BUN Creatinine Glucose POC Glucose 148 H Lactic Acid Calcium Phosphorus Magnesium Ferritin Direct Bilirubin AST ALT Alkaline Phosphatase Lactate Dehydrogenase Total Creatine Kinase C-Reactive Protein Total Protein Albumin Triglycerides Arterial Blood Glucose 155 H Arterial Blood Ionized Calcium 4.2 L Urine Creatinine Urine Chloride Vancomycin Trough Coronavirus (PCR) Crossmatch 06/26/20 06/26/20 06/26/20 03:59 05:14 05:47 WBC 36.5 H RBC 3.26 L Hgb 9.7 L Hct 28.2 L MCHC RDW Plt Count Lymph % (Auto) [place] % (Auto) Lymph # (Auto) [place] # (Auto) Eos # (Auto) Seg Neutrophils % Seg Neuts % (Manual) 92.0 H Lymphocytes % (Manual) 4.0 L Monocytes % (Manual) Basophils % (Manual) Nucleated RBC % Seg Neutrophils # Seg Neutrophils # Man 33.6 H Lymphocytes # (Manual) Monocytes # (Manual) Eosinophils # (Manual) Basophils # (Manual) PT INR APTT D-Dimer Heparin Anti-Xa Level ABG pH POC ABG pCO2 POC ABG pO2 ABG pO2 ABG HCO3 ABG Hemoglobin ABG Oxyhemoglobin ABG Sodium ABG Potassium ABG Chloride ABG Glucose Carboxyhemoglobin Sodium Potassium 5.9 H Chloride Carbon Dioxide 20 L BUN 144 H Creatinine 6.4 H Glucose 149 H POC Glucose 128 H Lactic Acid Calcium 7.6 L Phosphorus Magnesium Ferritin Direct Bilirubin AST ALT Alkaline Phosphatase Lactate Dehydrogenase Total Creatine Kinase C-Reactive Protein Total Protein Albumin Triglycerides Arterial Blood Glucose Arterial Blood Ionized Calcium Urine Creatinine Urine Chloride Vancomycin Trough Coronavirus (PCR) Crossmatch 06/26/20 06/26/20 06/26/20 05:47 12:47 17:42 WBC RBC Hgb Hct MCHC RDW Plt Count Lymph % (Auto) [place] % (Auto) Lymph # (Auto) [place] # (Auto) Eos # (Auto) Seg Neutrophils % Seg Neuts % (Manual) Lymphocytes % (Manual) Monocytes % (Manual) Basophils % (Manual) Nucleated RBC % Seg Neutrophils # Seg Neutrophils # Man Lymphocytes # (Manual) Monocytes # (Manual) Eosinophils # (Manual) Basophils # (Manual) PT 17.4 H INR 1.44 H APTT D-Dimer Heparin Anti-Xa Level ABG pH POC ABG pCO2 POC ABG pO2 ABG pO2 ABG HCO3 ABG Hemoglobin ABG Oxyhemoglobin ABG Sodium ABG Potassium ABG Chloride ABG Glucose Carboxyhemoglobin Sodium Potassium Chloride Carbon Dioxide BUN Creatinine Glucose POC Glucose 124 H 127 H Lactic Acid Calcium Phosphorus Magnesium Ferritin Direct Bilirubin AST ALT Alkaline Phosphatase Lactate Dehydrogenase Total Creatine Kinase C-Reactive Protein Total Protein Albumin Triglycerides Arterial Blood Glucose Arterial Blood Ionized Calcium Urine Creatinine Urine Chloride Vancomycin Trough Coronavirus (PCR) Crossmatch 06/26/20 06/27/20 06/27/20 23:30 03:32 04:00 WBC RBC Hgb 8.7 L Hct 26.4 L MCHC RDW Plt Count Lymph % (Auto) [place] % (Auto) Lymph # (Auto) [place] # (Auto) Eos # (Auto) Seg Neutrophils % Seg Neuts % (Manual) Lymphocytes % (Manual) Monocytes % (Manual) Basophils % (Manual) Nucleated RBC % Seg Neutrophils # Seg Neutrophils # Man Lymphocytes # (Manual) Monocytes # (Manual) Eosinophils # (Manual) Basophils # (Manual) PT INR APTT D-Dimer Heparin Anti-Xa Level ABG pH 7.298 L POC ABG pCO2 POC ABG pO2 ABG pO2 ABG HCO3 ABG Hemoglobin 9.6 L ABG Oxyhemoglobin ABG Sodium 124.4 L ABG Potassium 6.6 H ABG Chloride ABG Glucose 136 H Carboxyhemoglobin Sodium Potassium Chloride Carbon Dioxide BUN Creatinine Glucose POC Glucose 123 H Lactic Acid Calcium Phosphorus Magnesium Ferritin Direct Bilirubin AST ALT Alkaline Phosphatase Lactate Dehydrogenase Total Creatine Kinase C-Reactive Protein Total Protein Albumin Triglycerides Arterial Blood Glucose 136 H Arterial Blood Ionized Calcium 4.1 L Urine Creatinine Urine Chloride Vancomycin Trough Coronavirus (PCR) Crossmatch 06/27/20 06/27/20 06/27/20 05:26 10:14 11:58 WBC RBC Hgb Hct MCHC RDW Plt Count Lymph % (Auto) [place] % (Auto) Lymph # (Auto) [place] # (Auto) Eos # (Auto) Seg Neutrophils % Seg Neuts % (Manual) Lymphocytes % (Manual) Monocytes % (Manual) Basophils % (Manual) Nucleated RBC % Seg Neutrophils # Seg Neutrophils # Man Lymphocytes # (Manual) Monocytes # (Manual) Eosinophils # (Manual) Basophils # (Manual) PT INR APTT D-Dimer Heparin Anti-Xa Level ABG pH POC ABG pCO2 POC ABG pO2 ABG pO2 ABG HCO3 ABG Hemoglobin ABG Oxyhemoglobin ABG Sodium ABG Potassium ABG Chloride ABG Glucose Carboxyhemoglobin Sodium 136 L Potassium 7.0 H* Chloride 97.8 L Carbon Dioxide BUN 172 H Creatinine 7.4 H Glucose 129 H POC Glucose 124 H 115 H Lactic Acid Calcium 7.6 L Phosphorus Magnesium Ferritin Direct Bilirubin AST ALT Alkaline Phosphatase Lactate Dehydrogenase Total Creatine Kinase C-Reactive Protein Total Protein Albumin Triglycerides Arterial Blood Glucose Arterial Blood Ionized Calcium Urine Creatinine Urine Chloride Vancomycin Trough Coronavirus (PCR) Crossmatch 06/27/20 06/27/20 06/27/20 17:32 18:30 23:24 WBC RBC Hgb Hct MCHC RDW Plt Count Lymph % (Auto) [place] % (Auto) Lymph # (Auto) [place] # (Auto) Eos # (Auto) Seg Neutrophils % Seg Neuts % (Manual) Lymphocytes % (Manual) Monocytes % (Manual) Basophils % (Manual) Nucleated RBC % Seg Neutrophils # Seg Neutrophils # Man Lymphocytes # (Manual) Monocytes # (Manual) Eosinophils # (Manual) Basophils # (Manual) PT INR APTT D-Dimer Heparin Anti-Xa Level ABG pH POC ABG pCO2 POC ABG pO2 ABG pO2 ABG HCO3 ABG Hemoglobin ABG Oxyhemoglobin ABG Sodium ABG Potassium ABG Chloride ABG Glucose Carboxyhemoglobin Sodium Potassium 7.3 H* Chloride Carbon Dioxide BUN Creatinine Glucose POC Glucose 122 H 116 H Lactic Acid Calcium Phosphorus Magnesium Ferritin Direct Bilirubin AST ALT Alkaline Phosphatase Lactate Dehydrogenase Total Creatine Kinase C-Reactive Protein Total Protein Albumin Triglycerides Arterial Blood Glucose Arterial Blood Ionized Calcium Urine Creatinine Urine Chloride Vancomycin Trough Coronavirus (PCR) Crossmatch 06/28/20 06/28/20 06/28/20 00:00 02:16 05:37 WBC RBC Hgb Hct MCHC RDW Plt Count Lymph % (Auto) [place] % (Auto) Lymph # (Auto) [place] # (Auto) Eos # (Auto) Seg Neutrophils % Seg Neuts % (Manual) Lymphocytes % (Manual) Monocytes % (Manual) Basophils % (Manual) Nucleated RBC % Seg Neutrophils # Seg Neutrophils # Man Lymphocytes # (Manual) Monocytes # (Manual) Eosinophils # (Manual) Basophils # (Manual) PT INR APTT D-Dimer Heparin Anti-Xa Level ABG pH POC ABG pCO2 POC ABG pO2 79.0 L ABG pO2 ABG HCO3 ABG Hemoglobin 11.7 L ABG Oxyhemoglobin ABG Sodium 128.1 L ABG Potassium 6.6 H ABG Chloride ABG Glucose 124 H Carboxyhemoglobin Sodium Potassium 7.3 H* Chloride Carbon Dioxide BUN Creatinine Glucose POC Glucose 115 H Lactic Acid Calcium Phosphorus Magnesium Ferritin Direct Bilirubin AST ALT Alkaline Phosphatase Lactate Dehydrogenase Total Creatine Kinase C-Reactive Protein Total Protein Albumin Triglycerides Arterial Blood Glucose 124 H Arterial Blood Ionized Calcium 4.2 L Urine Creatinine Urine Chloride Vancomycin Trough Coronavirus (PCR) Crossmatch 06/28/20 06/28/20 06/28/20 10:03 10:03 11:51 WBC 33.6 H RBC 3.03 L Hgb 8.9 L Hct 27.0 L MCHC RDW Plt Count Lymph % (Auto) [place] % (Auto) Lymph # (Auto) [place] # (Auto) Eos # (Auto) Seg Neutrophils % Seg Neuts % (Manual) Lymphocytes % (Manual) Monocytes % (Manual) Basophils % (Manual) Nucleated RBC % Seg Neutrophils # Seg Neutrophils # Man Lymphocytes # (Manual) Monocytes # (Manual) Eosinophils # (Manual) Basophils # (Manual) PT INR APTT D-Dimer Heparin Anti-Xa Level ABG pH POC ABG pCO2 POC ABG pO2 ABG pO2 ABG HCO3 ABG Hemoglobin ABG Oxyhemoglobin ABG Sodium ABG Potassium ABG Chloride ABG Glucose Carboxyhemoglobin Sodium 136 L Potassium 6.5 H* Chloride Carbon Dioxide 20 L BUN 129 H Creatinine 5.8 H Glucose 113 H POC Glucose 107 H Lactic Acid Calcium 7.6 L Phosphorus Magnesium Ferritin Direct Bilirubin AST ALT Alkaline Phosphatase Lactate Dehydrogenase Total Creatine Kinase C-Reactive Protein Total Protein Albumin Triglycerides Arterial Blood Glucose Arterial Blood Ionized Calcium Urine Creatinine Urine Chloride Vancomycin Trough Coronavirus (PCR) Crossmatch 06/28/20 06/28/20 06/29/20 17:45 Unknown 03:15 WBC RBC Hgb Hct MCHC RDW Plt Count Lymph % (Auto) [place] % (Auto) Lymph # (Auto) [place] # (Auto) Eos # (Auto) Seg Neutrophils % Seg Neuts % (Manual) Lymphocytes % (Manual) Monocytes % (Manual) Basophils % (Manual) Nucleated RBC % Seg Neutrophils # Seg Neutrophils # Man Lymphocytes # (Manual) Monocytes # (Manual) Eosinophils # (Manual) Basophils # (Manual) PT INR APTT D-Dimer Heparin Anti-Xa Level ABG pH POC ABG pCO2 POC ABG pO2 ABG pO2 ABG HCO3 ABG Hemoglobin 7.8 L ABG Oxyhemoglobin ABG Sodium 127.4 L ABG Potassium 5.5 H ABG Chloride 97.0 L ABG Glucose 96 H Carboxyhemoglobin Sodium Potassium 5.4 H Chloride Carbon Dioxide BUN Creatinine Glucose POC Glucose 117 H Lactic Acid Calcium Phosphorus Magnesium Ferritin Direct Bilirubin AST ALT Alkaline Phosphatase Lactate Dehydrogenase Total Creatine Kinase C-Reactive Protein Total Protein Albumin Triglycerides Arterial Blood Glucose 96 H Arterial Blood Ionized Calcium 4.0 L Urine Creatinine Urine Chloride Vancomycin Trough Coronavirus (PCR) Crossmatch 06/29/20 06/29/20 06/29/20 03:45 Unknown Unknown WBC RBC Hgb Hct MCHC RDW Plt Count Lymph % (Auto) [place] % (Auto) Lymph # (Auto) [place] # (Auto) Eos # (Auto) Seg Neutrophils % Seg Neuts % (Manual) Lymphocytes % (Manual) Monocytes % (Manual) Basophils % (Manual) Nucleated RBC % Seg Neutrophils # Seg Neutrophils # Man Lymphocytes # (Manual) Monocytes # (Manual) Eosinophils # (Manual) Basophils # (Manual) PT INR APTT D-Dimer Heparin Anti-Xa Level ABG pH POC ABG pCO2 POC ABG pO2 ABG pO2 ABG HCO3 ABG Hemoglobin ABG Oxyhemoglobin ABG Sodium ABG Potassium ABG Chloride ABG Glucose Carboxyhemoglobin Sodium 135 L Potassium 6.0 H 6.1 H* Chloride 94.8 L Carbon Dioxide BUN 109 H 114 H Creatinine 5.5 H Glucose POC Glucose Lactic Acid Calcium 7.4 L Phosphorus Magnesium Ferritin Direct Bilirubin AST 47 H ALT Alkaline Phosphatase Lactate Dehydrogenase Total Creatine Kinase C-Reactive Protein Total Protein 4.9 L Albumin 2.2 L Triglycerides Arterial Blood Glucose Arterial Blood Ionized Calcium Urine Creatinine Urine Chloride Vancomycin Trough Coronavirus (PCR) Crossmatch 06/29/20 06/29/20 06/30/20 Unknown Unknown 03:32 WBC 20.7 H RBC 2.57 L Hgb 7.6 L Hct 23.0 L MCHC RDW Plt Count Lymph % (Auto) [place] % (Auto) Lymph # (Auto) [place] # (Auto) Eos # (Auto) Seg Neutrophils % Seg Neuts % (Manual) Lymphocytes % (Manual) Monocytes % (Manual) Basophils % (Manual) Nucleated RBC % Seg Neutrophils # Seg Neutrophils # Man Lymphocytes # (Manual) Monocytes # (Manual) Eosinophils # (Manual) Basophils # (Manual) PT INR APTT D-Dimer Heparin Anti-Xa Level ABG pH POC ABG pCO2 POC ABG pO2 ABG pO2 ABG HCO3 ABG Hemoglobin 11.4 L ABG Oxyhemoglobin ABG Sodium 130.1 L ABG Potassium 5.0 H ABG Chloride ABG Glucose Carboxyhemoglobin Sodium Potassium Chloride Carbon Dioxide BUN Creatinine Glucose POC Glucose Lactic Acid Calcium Phosphorus Magnesium Ferritin Direct Bilirubin AST ALT Alkaline Phosphatase Lactate Dehydrogenase Total Creatine Kinase 618 H C-Reactive Protein Total Protein Albumin Triglycerides Arterial Blood Glucose Arterial Blood Ionized Calcium 3.9 L Urine Creatinine Urine Chloride Vancomycin Trough Coronavirus (PCR) Crossmatch 06/30/20 06/30/20 06/30/20 03:50 03:50 11:39 WBC 13.1 H RBC Hgb Hct MCHC RDW Plt Count Lymph % (Auto) [place] % (Auto) Lymph # (Auto) [place] # (Auto) Eos # (Auto) Seg Neutrophils % Seg Neuts % (Manual) 95.0 H Lymphocytes % (Manual) 3.0 L Monocytes % (Manual) Basophils % (Manual) Nucleated RBC % Seg Neutrophils # Seg Neutrophils # Man 12.4 H Lymphocytes # (Manual) 0.4 L Monocytes # (Manual) Eosinophils # (Manual) Basophils # (Manual) PT INR APTT D-Dimer Heparin Anti-Xa Level ABG pH POC ABG pCO2 POC ABG pO2 ABG pO2 ABG HCO3 ABG Hemoglobin ABG Oxyhemoglobin ABG Sodium ABG Potassium ABG Chloride ABG Glucose Carboxyhemoglobin Sodium 135 L Potassium 5.4 H D Chloride 93.6 L Carbon Dioxide BUN 85 H Creatinine 4.6 H Glucose POC Glucose 111 H Lactic Acid Calcium 7.1 L Phosphorus 9.40 H Magnesium Ferritin Direct Bilirubin AST ALT Alkaline Phosphatase Lactate Dehydrogenase Total Creatine Kinase C-Reactive Protein Total Protein Albumin Triglycerides Arterial Blood Glucose Arterial Blood Ionized Calcium Urine Creatinine Urine Chloride Vancomycin Trough Coronavirus (PCR) Crossmatch 06/30/20 06/30/20 07/01/20 13:12 Unknown 03:19 WBC RBC Hgb 7.8 L D Hct 23.2 L D MCHC RDW Plt Count Lymph % (Auto) [place] % (Auto) Lymph # (Auto) [place] # (Auto) Eos # (Auto) Seg Neutrophils % Seg Neuts % (Manual) Lymphocytes % (Manual) Monocytes % (Manual) Basophils % (Manual) Nucleated RBC % Seg Neutrophils # Seg Neutrophils # Man Lymphocytes # (Manual) Monocytes # (Manual) Eosinophils # (Manual) Basophils # (Manual) PT INR APTT D-Dimer Heparin Anti-Xa Level ABG pH 7.461 H POC ABG pCO2 POC ABG pO2 77.2 L ABG pO2 ABG HCO3 ABG Hemoglobin 6.9 L ABG Oxyhemoglobin ABG Sodium 128.5 L ABG Potassium ABG Chloride 97.0 L ABG Glucose Carboxyhemoglobin Sodium Potassium Chloride Carbon Dioxide BUN Creatinine Glucose POC Glucose Lactic Acid Calcium Phosphorus Magnesium Ferritin Direct Bilirubin AST ALT Alkaline Phosphatase Lactate Dehydrogenase Total Creatine Kinase C-Reactive Protein Total Protein Albumin Triglycerides Arterial Blood Glucose Arterial Blood Ionized Calcium 3.7 L Urine Creatinine Urine Chloride Vancomycin Trough Coronavirus (PCR) Positive A Crossmatch 07/01/20 07/01/20 07/01/20 06:00 06:00 11:04 WBC 16.7 H RBC 2.16 L Hgb 6.4 L Hct 19.2 L* MCHC RDW Plt Count Lymph % (Auto) [place] % (Auto) Lymph # (Auto) [place] # (Auto) Eos # (Auto) Seg Neutrophils % Seg Neuts % (Manual) Lymphocytes % (Manual) Monocytes % (Manual) Basophils % (Manual) Nucleated RBC % Seg Neutrophils # Seg Neutrophils # Man Lymphocytes # (Manual) Monocytes # (Manual) Eosinophils # (Manual) Basophils # (Manual) PT INR APTT D-Dimer Heparin Anti-Xa Level ABG pH POC ABG pCO2 POC ABG pO2 ABG pO2 ABG HCO3 ABG Hemoglobin ABG Oxyhemoglobin ABG Sodium ABG Potassium ABG Chloride ABG Glucose Carboxyhemoglobin Sodium 136 L Potassium Chloride 95.8 L Carbon Dioxide BUN 72 H Creatinine 4.3 H Glucose POC Glucose Lactic Acid Calcium 6.7 L Phosphorus Magnesium Ferritin Direct Bilirubin AST ALT Alkaline Phosphatase Lactate Dehydrogenase Total Creatine Kinase C-Reactive Protein Total Protein Albumin Triglycerides 250 H Arterial Blood Glucose Arterial Blood Ionized Calcium Urine Creatinine Urine Chloride Vancomycin Trough Coronavirus (PCR) Crossmatch See Detail 07/02/20 07/02/20 07/02/20 04:44 06:00 11:33 WBC 14.6 H RBC 2.47 L Hgb 7.4 L Hct 21.8 L MCHC RDW Plt Count Lymph % (Auto) [place] % (Auto) Lymph # (Auto) [place] # (Auto) Eos # (Auto) Seg Neutrophils % Seg Neuts % (Manual) Lymphocytes % (Manual) Monocytes % (Manual) Basophils % (Manual) Nucleated RBC % Seg Neutrophils # Seg Neutrophils # Man Lymphocytes # (Manual) Monocytes # (Manual) Eosinophils # (Manual) Basophils # (Manual) PT INR APTT D-Dimer Heparin Anti-Xa Level ABG pH 7.457 H POC ABG pCO2 POC ABG pO2 79.4 L ABG pO2 ABG HCO3 ABG Hemoglobin 8.5 L ABG Oxyhemoglobin ABG Sodium 128.4 L ABG Potassium ABG Chloride 97.0 L ABG Glucose 100 H Carboxyhemoglobin Sodium 133 L Potassium 5.2 H Chloride 93.3 L Carbon Dioxide BUN 66 H Creatinine 4.1 H Glucose 102 H POC Glucose Lactic Acid Calcium 7.2 L Phosphorus Magnesium Ferritin Direct Bilirubin AST ALT Alkaline Phosphatase Lactate Dehydrogenase Total Creatine Kinase C-Reactive Protein Total Protein Albumin Triglycerides Arterial Blood Glucose 100 H Arterial Blood Ionized Calcium 3.9 L Urine Creatinine Urine Chloride Vancomycin Trough Coronavirus (PCR) Crossmatch 07/02/20 07/03/20 07/03/20 11:33 03:54 09:15 WBC 16.6 H RBC 2.44 L Hgb 7.3 L Hct 21.4 L MCHC RDW Plt Count Lymph % (Auto) [place] % (Auto) Lymph # (Auto) [place] # (Auto) Eos # (Auto) Seg Neutrophils % Seg Neuts % (Manual) Lymphocytes % (Manual) Monocytes % (Manual) Basophils % (Manual) Nucleated RBC % Seg Neutrophils # Seg Neutrophils # Man Lymphocytes # (Manual) Monocytes # (Manual) Eosinophils # (Manual) Basophils # (Manual) PT INR APTT D-Dimer Heparin Anti-Xa Level ABG pH POC ABG pCO2 POC ABG pO2 66.1 L ABG pO2 ABG HCO3 ABG Hemoglobin 8.0 L ABG Oxyhemoglobin ABG Sodium 124.6 L ABG Potassium 5.5 H ABG Chloride 96.0 L ABG Glucose 111 H Carboxyhemoglobin Sodium Potassium Chloride Carbon Dioxide BUN Creatinine Glucose POC Glucose Lactic Acid Calcium Phosphorus Magnesium Ferritin Direct Bilirubin 0.7 H AST 94 H ALT 60 H Alkaline Phosphatase Lactate Dehydrogenase Total Creatine Kinase C-Reactive Protein Total Protein 4.4 L Albumin 1.9 L Triglycerides Arterial Blood Glucose 111 H Arterial Blood Ionized Calcium 3.8 L Urine Creatinine Urine Chloride Vancomycin Trough Coronavirus (PCR) Crossmatch 07/03/20 07/03/20 07/03/20 09:15 10:10 14:50 WBC RBC Hgb Hct MCHC RDW Plt Count Lymph % (Auto) [place] % (Auto) Lymph # (Auto) [place] # (Auto) Eos # (Auto) Seg Neutrophils % Seg Neuts % (Manual) Lymphocytes % (Manual) Monocytes % (Manual) Basophils % (Manual) Nucleated RBC % Seg Neutrophils # Seg Neutrophils # Man Lymphocytes # (Manual) Monocytes # (Manual) Eosinophils # (Manual) Basophils # (Manual) PT INR APTT D-Dimer 6608.00 H Heparin Anti-Xa Level ABG pH POC ABG pCO2 POC ABG pO2 ABG pO2 ABG HCO3 ABG Hemoglobin ABG Oxyhemoglobin ABG Sodium ABG Potassium ABG Chloride ABG Glucose Carboxyhemoglobin Sodium 133 L Potassium 6.2 H* Chloride 93.1 L Carbon Dioxide BUN 89 H Creatinine 5.1 H Glucose POC Glucose Lactic Acid Calcium 7.0 L Phosphorus Magnesium Ferritin Direct Bilirubin AST ALT Alkaline Phosphatase Lactate Dehydrogenase Total Creatine Kinase C-Reactive Protein Total Protein Albumin Triglycerides Arterial Blood Glucose Arterial Blood Ionized Calcium Urine Creatinine Urine Chloride Vancomycin Trough Coronavirus (PCR) Positive A Crossmatch 07/03/20 07/03/20 07/03/20 14:50 14:50 14:50 WBC RBC Hgb Hct MCHC RDW Plt Count Lymph % (Auto) [place] % (Auto) Lymph # (Auto) [place] # (Auto) Eos # (Auto) Seg Neutrophils % Seg Neuts % (Manual) Lymphocytes % (Manual) Monocytes % (Manual) Basophils % (Manual) Nucleated RBC % Seg Neutrophils # Seg Neutrophils # Man Lymphocytes # (Manual) Monocytes # (Manual) Eosinophils # (Manual) Basophils # (Manual) PT INR APTT D-Dimer Heparin Anti-Xa Level ABG pH POC ABG pCO2 POC ABG pO2 ABG pO2 ABG HCO3 ABG Hemoglobin ABG Oxyhemoglobin ABG Sodium ABG Potassium ABG Chloride ABG Glucose Carboxyhemoglobin Sodium Potassium Chloride Carbon Dioxide BUN Creatinine Glucose POC Glucose Lactic Acid < 0.20 L Calcium Phosphorus Magnesium Ferritin 1171.0 H Direct Bilirubin AST ALT Alkaline Phosphatase Lactate Dehydrogenase 525 H Total Creatine Kinase C-Reactive Protein 31.50 H Total Protein Albumin Triglycerides Arterial Blood Glucose Arterial Blood Ionized Calcium Urine Creatinine Urine Chloride Vancomycin Trough Coronavirus (PCR) Crossmatch 07/03/20 07/04/20 07/04/20 16:47 05:20 05:20 WBC 11.8 H RBC 2.32 L Hgb 6.7 L Hct 20.8 L MCHC RDW Plt Count Lymph % (Auto) 2.6 L [place] % (Auto) Lymph # (Auto) 0.3 L [place] # (Auto) Eos # (Auto) Seg Neutrophils % Seg Neuts % (Manual) Lymphocytes % (Manual) Monocytes % (Manual) Basophils % (Manual) Nucleated RBC % Seg Neutrophils # 11.0 H Seg Neutrophils # Man Lymphocytes # (Manual) Monocytes # (Manual) Eosinophils # (Manual) Basophils # (Manual) PT INR APTT D-Dimer Heparin Anti-Xa Level ABG pH POC ABG pCO2 POC ABG pO2 ABG pO2 ABG HCO3 ABG Hemoglobin ABG Oxyhemoglobin ABG Sodium ABG Potassium ABG Chloride ABG Glucose Carboxyhemoglobin Sodium Potassium 6.0 H Chloride 97.8 L Carbon Dioxide BUN 75 H Creatinine 4.5 H Glucose 121 H POC Glucose 107 H Lactic Acid Calcium 7.9 L Phosphorus Magnesium Ferritin Direct Bilirubin AST ALT Alkaline Phosphatase Lactate Dehydrogenase Total Creatine Kinase C-Reactive Protein Total Protein Albumin Triglycerides Arterial Blood Glucose Arterial Blood Ionized Calcium Urine Creatinine Urine Chloride Vancomycin Trough Coronavirus (PCR) Crossmatch 07/04/20 07/04/20 07/04/20 05:20 05:50 09:25 WBC RBC Hgb Hct MCHC RDW Plt Count Lymph % (Auto) [place] % (Auto) Lymph # (Auto) [place] # (Auto) Eos # (Auto) Seg Neutrophils % Seg Neuts % (Manual) Lymphocytes % (Manual) Monocytes % (Manual) Basophils % (Manual) Nucleated RBC % Seg Neutrophils # Seg Neutrophils # Man Lymphocytes # (Manual) Monocytes # (Manual) Eosinophils # (Manual) Basophils # (Manual) PT INR APTT D-Dimer Heparin Anti-Xa Level ABG pH 7.324 L POC ABG pCO2 POC ABG pO2 ABG pO2 98.9 H ABG HCO3 26.8 H ABG Hemoglobin < 5.1 L ABG Oxyhemoglobin ABG Sodium ABG Potassium ABG Chloride ABG Glucose Carboxyhemoglobin Sodium Potassium Chloride Carbon Dioxide BUN Creatinine Glucose POC Glucose 114 H Lactic Acid Calcium Phosphorus Magnesium Ferritin Direct Bilirubin AST ALT Alkaline Phosphatase Lactate Dehydrogenase Total Creatine Kinase C-Reactive Protein Total Protein Albumin Triglycerides Arterial Blood Glucose Arterial Blood Ionized Calcium Urine Creatinine Urine Chloride Vancomycin Trough Coronavirus (PCR) Crossmatch See Detail 07/04/20 07/04/20 07/04/20 12:33 17:41 23:04 WBC RBC Hgb Hct MCHC RDW Plt Count Lymph % (Auto) [place] % (Auto) Lymph # (Auto) [place] # (Auto) Eos # (Auto) Seg Neutrophils % Seg Neuts % (Manual) Lymphocytes % (Manual) Monocytes % (Manual) Basophils % (Manual) Nucleated RBC % Seg Neutrophils # Seg Neutrophils # Man Lymphocytes # (Manual) Monocytes # (Manual) Eosinophils # (Manual) Basophils # (Manual) PT INR APTT D-Dimer Heparin Anti-Xa Level ABG pH POC ABG pCO2 POC ABG pO2 ABG pO2 ABG HCO3 ABG Hemoglobin ABG Oxyhemoglobin ABG Sodium ABG Potassium ABG Chloride ABG Glucose Carboxyhemoglobin Sodium Potassium Chloride Carbon Dioxide BUN Creatinine Glucose POC Glucose 119 H 109 H 116 H Lactic Acid Calcium Phosphorus Magnesium Ferritin Direct Bilirubin AST ALT Alkaline Phosphatase Lactate Dehydrogenase Total Creatine Kinase C-Reactive Protein Total Protein Albumin Triglycerides Arterial Blood Glucose Arterial Blood Ionized Calcium Urine Creatinine Urine Chloride Vancomycin Trough Coronavirus (PCR) Crossmatch 07/05/20 07/05/20 07/05/20 04:30 08:21 08:21 WBC RBC 2.77 L Hgb 7.9 L Hct 23.9 L MCHC RDW 16.7 H Plt Count Lymph % (Auto) 7.5 L [place] % (Auto) Lymph # (Auto) 0.7 L [place] # (Auto) Eos # (Auto) Seg Neutrophils % 85.8 H Seg Neuts % (Manual) Lymphocytes % (Manual) Monocytes % (Manual) Basophils % (Manual) Nucleated RBC % Seg Neutrophils # 7.8 H Seg Neutrophils # Man Lymphocytes # (Manual) Monocytes # (Manual) Eosinophils # (Manual) Basophils # (Manual) PT INR APTT D-Dimer Heparin Anti-Xa Level ABG pH 7.295 L POC ABG pCO2 POC ABG pO2 ABG pO2 151.9 H ABG HCO3 26.8 H ABG Hemoglobin 7.3 L ABG Oxyhemoglobin ABG Sodium ABG Potassium ABG Chloride ABG Glucose Carboxyhemoglobin Sodium Potassium Chloride Carbon Dioxide BUN Creatinine Glucose POC Glucose Lactic Acid Calcium Phosphorus Magnesium Ferritin Direct Bilirubin AST ALT Alkaline Phosphatase Lactate Dehydrogenase Total Creatine Kinase C-Reactive Protein Total Protein Albumin Triglycerides 258 H Arterial Blood Glucose Arterial Blood Ionized Calcium Urine Creatinine Urine Chloride Vancomycin Trough Coronavirus (PCR) Crossmatch 07/05/20 07/05/20 07/06/20 08:21 12:12 04:29 WBC RBC Hgb Hct MCHC RDW Plt Count Lymph % (Auto) [place] % (Auto) Lymph # (Auto) [place] # (Auto) Eos # (Auto) Seg Neutrophils % Seg Neuts % (Manual) Lymphocytes % (Manual) Monocytes % (Manual) Basophils % (Manual) Nucleated RBC % Seg Neutrophils # Seg Neutrophils # Man Lymphocytes # (Manual) Monocytes # (Manual) Eosinophils # (Manual) Basophils # (Manual) PT INR APTT D-Dimer Heparin Anti-Xa Level ABG pH 7.291 L POC ABG pCO2 51.3 H POC ABG pO2 ABG pO2 ABG HCO3 ABG Hemoglobin 8.5 L ABG Oxyhemoglobin ABG Sodium 129.6 L ABG Potassium 4.8 H ABG Chloride 96.0 L ABG Glucose Carboxyhemoglobin Sodium 133 L Potassium 5.6 H Chloride 94.4 L Carbon Dioxide BUN 80 H Creatinine 4.2 H Glucose 114 H POC Glucose 106 H Lactic Acid Calcium 7.6 L Phosphorus Magnesium Ferritin Direct Bilirubin 0.5 H AST 75 H ALT 86 H Alkaline Phosphatase Lactate Dehydrogenase Total Creatine Kinase C-Reactive Protein Total Protein 5.6 L D Albumin 1.9 L Triglycerides Arterial Blood Glucose Arterial Blood Ionized Calcium 4.2 L Urine Creatinine Urine Chloride Vancomycin Trough Coronavirus (PCR) Crossmatch 07/06/20 07/06/20 07/06/20 11:35 11:35 12:16 WBC RBC 2.54 L Hgb 7.5 L Hct 21.5 L MCHC 35 H RDW 15.7 H Plt Count Lymph % (Auto) [place] % (Auto) Lymph # (Auto) [place] # (Auto) Eos # (Auto) Seg Neutrophils % Seg Neuts % (Manual) Lymphocytes % (Manual) Monocytes % (Manual) Basophils % (Manual) Nucleated RBC % Seg Neutrophils # Seg Neutrophils # Man Lymphocytes # (Manual) Monocytes # (Manual) Eosinophils # (Manual) Basophils # (Manual) PT INR APTT D-Dimer Heparin Anti-Xa Level ABG pH POC ABG pCO2 POC ABG pO2 ABG pO2 ABG HCO3 ABG Hemoglobin ABG Oxyhemoglobin ABG Sodium ABG Potassium ABG Chloride ABG Glucose Carboxyhemoglobin Sodium 130 L Potassium Chloride 92.2 L Carbon Dioxide 19 L D BUN 107 H Creatinine 5.1 H Glucose 106 H POC Glucose 106 H Lactic Acid Calcium 7.5 L Phosphorus Magnesium Ferritin Direct Bilirubin AST ALT Alkaline Phosphatase Lactate Dehydrogenase Total Creatine Kinase C-Reactive Protein Total Protein Albumin Triglycerides Arterial Blood Glucose Arterial Blood Ionized Calcium Urine Creatinine Urine Chloride Vancomycin Trough Coronavirus (PCR) Crossmatch 07/06/20 07/06/20 07/06/20 17:01 21:56 23:41 WBC RBC Hgb Hct MCHC RDW Plt Count Lymph % (Auto) [place] % (Auto) Lymph # (Auto) [place] # (Auto) Eos # (Auto) Seg Neutrophils % Seg Neuts % (Manual) Lymphocytes % (Manual) Monocytes % (Manual) Basophils % (Manual) Nucleated RBC % Seg Neutrophils # Seg Neutrophils # Man Lymphocytes # (Manual) Monocytes # (Manual) Eosinophils # (Manual) Basophils # (Manual) PT INR APTT D-Dimer Heparin Anti-Xa Level ABG pH POC ABG pCO2 POC ABG pO2 ABG pO2 ABG HCO3 ABG Hemoglobin ABG Oxyhemoglobin ABG Sodium ABG Potassium ABG Chloride ABG Glucose Carboxyhemoglobin Sodium 135 L Potassium 5.1 H Chloride Carbon Dioxide BUN 73 H Creatinine 4.0 H Glucose 112 H POC Glucose 109 H 111 H Lactic Acid Calcium 7.8 L Phosphorus Magnesium Ferritin Direct Bilirubin AST ALT Alkaline Phosphatase Lactate Dehydrogenase Total Creatine Kinase C-Reactive Protein Total Protein Albumin Triglycerides Arterial Blood Glucose Arterial Blood Ionized Calcium Urine Creatinine Urine Chloride Vancomycin Trough Coronavirus (PCR) Crossmatch 07/07/20 07/07/20 07/07/20 04:18 05:04 05:29 WBC RBC 2.46 L Hgb 7.6 L Hct 21.5 L MCHC 35 H RDW 16.5 H Plt Count Lymph % (Auto) [place] % (Auto) Lymph # (Auto) [place] # (Auto) Eos # (Auto) Seg Neutrophils % Seg Neuts % (Manual) 82.0 H Lymphocytes % (Manual) Monocytes % (Manual) Basophils % (Manual) Nucleated RBC % 1.0 H Seg Neutrophils # Seg Neutrophils # Man Lymphocytes # (Manual) 1.1 L Monocytes # (Manual) Eosinophils # (Manual) Basophils # (Manual) PT INR APTT D-Dimer Heparin Anti-Xa Level ABG pH POC ABG pCO2 POC ABG pO2 79.6 L ABG pO2 ABG HCO3 ABG Hemoglobin 8.2 L ABG Oxyhemoglobin ABG Sodium 133.3 L ABG Potassium 4.7 H ABG Chloride ABG Glucose 135 H Carboxyhemoglobin Sodium Potassium Chloride Carbon Dioxide BUN Creatinine Glucose POC Glucose 112 H Lactic Acid Calcium Phosphorus Magnesium Ferritin Direct Bilirubin AST ALT Alkaline Phosphatase Lactate Dehydrogenase Total Creatine Kinase C-Reactive Protein Total Protein Albumin Triglycerides Arterial Blood Glucose 135 H Arterial Blood Ionized Calcium 4.5 L Urine Creatinine Urine Chloride Vancomycin Trough Coronavirus (PCR) Crossmatch 07/07/20 07/07/20 07/07/20 10:17 12:18 17:43 WBC RBC Hgb Hct MCHC RDW Plt Count Lymph % (Auto) [place] % (Auto) Lymph # (Auto) [place] # (Auto) Eos # (Auto) Seg Neutrophils % Seg Neuts % (Manual) Lymphocytes % (Manual) Monocytes % (Manual) Basophils % (Manual) Nucleated RBC % Seg Neutrophils # Seg Neutrophils # Man Lymphocytes # (Manual) Monocytes # (Manual) Eosinophils # (Manual) Basophils # (Manual) PT INR APTT D-Dimer Heparin Anti-Xa Level ABG pH POC ABG pCO2 POC ABG pO2 ABG pO2 ABG HCO3 ABG Hemoglobin ABG Oxyhemoglobin ABG Sodium ABG Potassium ABG Chloride ABG Glucose Carboxyhemoglobin Sodium 136 L Potassium Chloride 96.8 L Carbon Dioxide BUN 82 H Creatinine 4.3 H Glucose 129 H POC Glucose 108 H 116 H Lactic Acid Calcium 7.8 L Phosphorus Magnesium Ferritin Direct Bilirubin AST ALT Alkaline Phosphatase Lactate Dehydrogenase Total Creatine Kinase C-Reactive Protein Total Protein Albumin Triglycerides Arterial Blood Glucose Arterial Blood Ionized Calcium Urine Creatinine Urine Chloride Vancomycin Trough Coronavirus (PCR) Crossmatch 07/07/20 07/08/20 07/08/20 23:31 04:00 04:00 WBC RBC 2.52 L Hgb 7.3 L Hct 22.2 L MCHC RDW 16.6 H Plt Count Lymph % (Auto) 11.5 L [place] % (Auto) Lymph # (Auto) [place] # (Auto) Eos # (Auto) Seg Neutrophils % 78.2 H Seg Neuts % (Manual) Lymphocytes % (Manual) Monocytes % (Manual) Basophils % (Manual) Nucleated RBC % Seg Neutrophils # 8.0 H Seg Neutrophils # Man Lymphocytes # (Manual) Monocytes # (Manual) Eosinophils # (Manual) Basophils # (Manual) PT INR APTT D-Dimer Heparin Anti-Xa Level ABG pH POC ABG pCO2 POC ABG pO2 ABG pO2 ABG HCO3 ABG Hemoglobin ABG Oxyhemoglobin ABG Sodium ABG Potassium ABG Chloride ABG Glucose Carboxyhemoglobin Sodium 132 L Potassium 5.4 H Chloride 92.5 L Carbon Dioxide BUN 98 H Creatinine 4.9 H Glucose 105 H POC Glucose 117 H Lactic Acid Calcium 7.9 L Phosphorus Magnesium Ferritin Direct Bilirubin AST ALT Alkaline Phosphatase Lactate Dehydrogenase Total Creatine Kinase C-Reactive Protein Total Protein Albumin Triglycerides Arterial Blood Glucose Arterial Blood Ionized Calcium Urine Creatinine Urine Chloride Vancomycin Trough Coronavirus (PCR) Crossmatch 07/08/20 07/08/20 07/08/20 04:09 11:34 17:05 WBC RBC Hgb Hct MCHC RDW Plt Count Lymph % (Auto) [place] % (Auto) Lymph # (Auto) [place] # (Auto) Eos # (Auto) Seg Neutrophils % Seg Neuts % (Manual) Lymphocytes % (Manual) Monocytes % (Manual) Basophils % (Manual) Nucleated RBC % Seg Neutrophils # Seg Neutrophils # Man Lymphocytes # (Manual) Monocytes # (Manual) Eosinophils # (Manual) Basophils # (Manual) PT INR APTT D-Dimer Heparin Anti-Xa Level ABG pH 7.220 L POC ABG pCO2 60.5 H POC ABG pO2 ABG pO2 ABG HCO3 ABG Hemoglobin 8.2 L ABG Oxyhemoglobin ABG Sodium 131.3 L ABG Potassium 5.2 H ABG Chloride ABG Glucose 103 H Carboxyhemoglobin Sodium Potassium Chloride Carbon Dioxide BUN Creatinine Glucose POC Glucose 140 H 125 H Lactic Acid Calcium Phosphorus Magnesium Ferritin Direct Bilirubin AST ALT Alkaline Phosphatase Lactate Dehydrogenase Total Creatine Kinase C-Reactive Protein Total Protein Albumin Triglycerides Arterial Blood Glucose 103 H Arterial Blood Ionized Calcium 4.3 L Urine Creatinine Urine Chloride Vancomycin Trough Coronavirus (PCR) Crossmatch 07/08/20 07/08/20 07/09/20 20:21 23:43 05:10 WBC RBC Hgb Hct MCHC RDW Plt Count Lymph % (Auto) [place] % (Auto) Lymph # (Auto) [place] # (Auto) Eos # (Auto) Seg Neutrophils % Seg Neuts % (Manual) Lymphocytes % (Manual) Monocytes % (Manual) Basophils % (Manual) Nucleated RBC % Seg Neutrophils # Seg Neutrophils # Man Lymphocytes # (Manual) Monocytes # (Manual) Eosinophils # (Manual) Basophils # (Manual) PT INR APTT D-Dimer Heparin Anti-Xa Level ABG pH 7.20 L POC ABG pCO2 69.8 H POC ABG pO2 138.9 H 76.1 L ABG pO2 ABG HCO3 ABG Hemoglobin 11.9 L 8.4 L ABG Oxyhemoglobin ABG Sodium 133.1 L 131.2 L ABG Potassium 5.0 H 4.7 H ABG Chloride ABG Glucose 120 H 102 H Carboxyhemoglobin Sodium Potassium Chloride Carbon Dioxide BUN Creatinine Glucose POC Glucose 118 H Lactic Acid Calcium Phosphorus Magnesium Ferritin Direct Bilirubin AST ALT Alkaline Phosphatase Lactate Dehydrogenase Total Creatine Kinase C-Reactive Protein Total Protein Albumin Triglycerides Arterial Blood Glucose 120 H 102 H Arterial Blood Ionized Calcium 4.4 L 4.3 L Urine Creatinine Urine Chloride Vancomycin Trough Coronavirus (PCR) Crossmatch 07/09/20 07/09/20 07/09/20 11:51 17:04 21:00 WBC RBC Hgb Hct MCHC RDW Plt Count Lymph % (Auto) [place] % (Auto) Lymph # (Auto) [place] # (Auto) Eos # (Auto) Seg Neutrophils % Seg Neuts % (Manual) Lymphocytes % (Manual) Monocytes % (Manual) Basophils % (Manual) Nucleated RBC % Seg Neutrophils # Seg Neutrophils # Man Lymphocytes # (Manual) Monocytes # (Manual) Eosinophils # (Manual) Basophils # (Manual) PT INR APTT D-Dimer Heparin Anti-Xa Level ABG pH POC ABG pCO2 POC ABG pO2 114.2 H ABG pO2 ABG HCO3 ABG Hemoglobin 7.8 L ABG Oxyhemoglobin ABG Sodium 132.3 L ABG Potassium 4.6 H ABG Chloride ABG Glucose Carboxyhemoglobin Sodium Potassium Chloride Carbon Dioxide BUN Creatinine Glucose POC Glucose 113 H 111 H Lactic Acid Calcium Phosphorus Magnesium Ferritin Direct Bilirubin AST ALT Alkaline Phosphatase Lactate Dehydrogenase Total Creatine Kinase C-Reactive Protein Total Protein Albumin Triglycerides Arterial Blood Glucose Arterial Blood Ionized Calcium 4.4 L Urine Creatinine Urine Chloride Vancomycin Trough Coronavirus (PCR) Crossmatch 07/10/20 07/10/20 07/10/20 03:49 03:55 03:55 WBC 18.1 H RBC 2.37 L Hgb 6.8 L Hct 20.7 L MCHC RDW 16.9 H Plt Count Lymph % (Auto) [place] % (Auto) Lymph # (Auto) [place] # (Auto) Eos # (Auto) Seg Neutrophils % Seg Neuts % (Manual) 79.0 H Lymphocytes % (Manual) 10.0 L Monocytes % (Manual) Basophils % (Manual) Nucleated RBC % 1.0 H Seg Neutrophils # Seg Neutrophils # Man 14.3 H Lymphocytes # (Manual) Monocytes # (Manual) Eosinophils # (Manual) 0.7 H Basophils # (Manual) PT INR APTT D-Dimer Heparin Anti-Xa Level ABG pH POC ABG pCO2 POC ABG pO2 ABG pO2 ABG HCO3 ABG Hemoglobin 7.7 L ABG Oxyhemoglobin ABG Sodium 130.3 L ABG Potassium 4.6 H ABG Chloride ABG Glucose Carboxyhemoglobin Sodium 136 L Potassium Chloride 96.0 L Carbon Dioxide BUN 76 H Creatinine 3.6 H Glucose POC Glucose Lactic Acid Calcium 7.4 L Phosphorus Magnesium Ferritin Direct Bilirubin AST ALT Alkaline Phosphatase Lactate Dehydrogenase Total Creatine Kinase C-Reactive Protein Total Protein Albumin Triglycerides Arterial Blood Glucose Arterial Blood Ionized Calcium 4.2 L Urine Creatinine Urine Chloride Vancomycin Trough Coronavirus (PCR) Crossmatch 07/10/20 07/11/20 07/11/20 13:24 04:08 06:52 WBC 26.0 H RBC 2.91 L Hgb 8.2 L Hct 24.8 L MCHC RDW 17.2 H Plt Count Lymph % (Auto) [place] % (Auto) Lymph # (Auto) [place] # (Auto) Eos # (Auto) Seg Neutrophils % Seg Neuts % (Manual) Lymphocytes % (Manual) 1.0 L Monocytes % (Manual) 11.0 H Basophils % (Manual) Nucleated RBC % Seg Neutrophils # Seg Neutrophils # Man 16.9 H Lymphocytes # (Manual) 0.3 L Monocytes # (Manual) 2.9 H Eosinophils # (Manual) 1.0 H Basophils # (Manual) PT INR APTT D-Dimer Heparin Anti-Xa Level ABG pH POC ABG pCO2 POC ABG pO2 ABG pO2 ABG HCO3 ABG Hemoglobin 8.5 L ABG Oxyhemoglobin ABG Sodium 130.6 L ABG Potassium 4.9 H ABG Chloride ABG Glucose 105 H Carboxyhemoglobin Sodium Potassium Chloride Carbon Dioxide BUN Creatinine Glucose POC Glucose Lactic Acid Calcium Phosphorus Magnesium Ferritin Direct Bilirubin AST ALT Alkaline Phosphatase Lactate Dehydrogenase Total Creatine Kinase C-Reactive Protein Total Protein Albumin Triglycerides Arterial Blood Glucose 105 H Arterial Blood Ionized Calcium 4.1 L Urine Creatinine Urine Chloride Vancomycin Trough Coronavirus (PCR) Crossmatch See Detail 07/11/20 07/11/20 07/11/20 06:52 08:48 11:39 WBC RBC Hgb Hct MCHC RDW Plt Count Lymph % (Auto) [place] % (Auto) Lymph # (Auto) [place] # (Auto) Eos # (Auto) Seg Neutrophils % Seg Neuts % (Manual) Lymphocytes % (Manual) Monocytes % (Manual) Basophils % (Manual) Nucleated RBC % Seg Neutrophils # Seg Neutrophils # Man Lymphocytes # (Manual) Monocytes # (Manual) Eosinophils # (Manual) Basophils # (Manual) PT INR APTT D-Dimer Heparin Anti-Xa Level ABG pH POC ABG pCO2 POC ABG pO2 ABG pO2 ABG HCO3 ABG Hemoglobin ABG Oxyhemoglobin ABG Sodium ABG Potassium ABG Chloride ABG Glucose Carboxyhemoglobin Sodium 133 L 134 L Potassium 5.3 H Chloride 93.5 L 94.8 L Carbon Dioxide BUN 101 H 99 H Creatinine 4.5 H 4.6 H Glucose 102 H POC Glucose 116 H Lactic Acid Calcium 7.8 L 7.6 L Phosphorus Magnesium Ferritin Direct Bilirubin AST ALT Alkaline Phosphatase Lactate Dehydrogenase Total Creatine Kinase C-Reactive Protein Total Protein Albumin Triglycerides Arterial Blood Glucose Arterial Blood Ionized Calcium Urine Creatinine Urine Chloride Vancomycin Trough Coronavirus (PCR) Crossmatch 07/11/20 07/12/20 07/12/20 17:23 00:04 03:20 WBC RBC Hgb Hct MCHC RDW Plt Count Lymph % (Auto) [place] % (Auto) Lymph # (Auto) [place] # (Auto) Eos # (Auto) Seg Neutrophils % Seg Neuts % (Manual) Lymphocytes % (Manual) Monocytes % (Manual) Basophils % (Manual) Nucleated RBC % Seg Neutrophils # Seg Neutrophils # Man Lymphocytes # (Manual) Monocytes # (Manual) Eosinophils # (Manual) Basophils # (Manual) PT INR APTT D-Dimer Heparin Anti-Xa Level ABG pH POC ABG pCO2 49.1 H POC ABG pO2 130.3 H ABG pO2 ABG HCO3 ABG Hemoglobin 8.7 L ABG Oxyhemoglobin ABG Sodium 135.2 L ABG Potassium 4.7 H ABG Chloride ABG Glucose 128 H Carboxyhemoglobin Sodium Potassium Chloride Carbon Dioxide BUN Creatinine Glucose POC Glucose 142 H 113 H Lactic Acid Calcium Phosphorus Magnesium Ferritin Direct Bilirubin AST ALT Alkaline Phosphatase Lactate Dehydrogenase Total Creatine Kinase C-Reactive Protein Total Protein Albumin Triglycerides Arterial Blood Glucose 128 H Arterial Blood Ionized Calcium 4.4 L Urine Creatinine Urine Chloride Vancomycin Trough Coronavirus (PCR) Crossmatch 07/12/20 07/12/20 07/12/20 03:40 03:40 04:00 WBC 24.3 H RBC 2.83 L Hgb 8.0 L Hct 24.9 L MCHC RDW 17.7 H Plt Count Lymph % (Auto) 5.6 L [place] % (Auto) 7.4 H Lymph # (Auto) [place] # (Auto) 1.8 H Eos # (Auto) 0.7 H Seg Neutrophils % 83.9 H Seg Neuts % (Manual) Lymphocytes % (Manual) Monocytes % (Manual) Basophils % (Manual) Nucleated RBC % Seg Neutrophils # 20.4 H Seg Neutrophils # Man Lymphocytes # (Manual) Monocytes # (Manual) Eosinophils # (Manual) Basophils # (Manual) PT INR APTT D-Dimer Heparin Anti-Xa Level ABG pH POC ABG pCO2 POC ABG pO2 ABG pO2 ABG HCO3 ABG Hemoglobin ABG Oxyhemoglobin ABG Sodium ABG Potassium ABG Chloride ABG Glucose Carboxyhemoglobin Sodium 134 L Potassium Chloride 95.5 L Carbon Dioxide BUN 79 H Creatinine 3.7 H Glucose 127 H POC Glucose Lactic Acid Calcium 7.8 L Phosphorus Magnesium Ferritin Direct Bilirubin AST ALT Alkaline Phosphatase Lactate Dehydrogenase Total Creatine Kinase C-Reactive Protein Total Protein Albumin Triglycerides 246 H Arterial Blood Glucose Arterial Blood Ionized Calcium Urine Creatinine Urine Chloride Vancomycin Trough Coronavirus (PCR) Crossmatch 07/12/20 07/12/20 07/12/20 05:48 11:50 17:29 WBC RBC Hgb Hct MCHC RDW Plt Count Lymph % (Auto) [place] % (Auto) Lymph # (Auto) [place] # (Auto) Eos # (Auto) Seg Neutrophils % Seg Neuts % (Manual) Lymphocytes % (Manual) Monocytes % (Manual) Basophils % (Manual) Nucleated RBC % Seg Neutrophils # Seg Neutrophils # Man Lymphocytes # (Manual) Monocytes # (Manual) Eosinophils # (Manual) Basophils # (Manual) PT INR APTT D-Dimer Heparin Anti-Xa Level ABG pH POC ABG pCO2 POC ABG pO2 ABG pO2 ABG HCO3 ABG Hemoglobin ABG Oxyhemoglobin ABG Sodium ABG Potassium ABG Chloride ABG Glucose Carboxyhemoglobin Sodium Potassium Chloride Carbon Dioxide BUN Creatinine Glucose POC Glucose 136 H 113 H 110 H Lactic Acid Calcium Phosphorus Magnesium Ferritin Direct Bilirubin AST ALT Alkaline Phosphatase Lactate Dehydrogenase Total Creatine Kinase C-Reactive Protein Total Protein Albumin Triglycerides Arterial Blood Glucose Arterial Blood Ionized Calcium Urine Creatinine Urine Chloride Vancomycin Trough Coronavirus (PCR) Crossmatch 07/12/20 07/13/20 07/13/20 23:43 03:11 06:59 WBC RBC Hgb Hct MCHC RDW Plt Count Lymph % (Auto) [place] % (Auto) Lymph # (Auto) [place] # (Auto) Eos # (Auto) Seg Neutrophils % Seg Neuts % (Manual) Lymphocytes % (Manual) Monocytes % (Manual) Basophils % (Manual) Nucleated RBC % Seg Neutrophils # Seg Neutrophils # Man Lymphocytes # (Manual) Monocytes # (Manual) Eosinophils # (Manual) Basophils # (Manual) PT INR APTT D-Dimer Heparin Anti-Xa Level ABG pH POC ABG pCO2 49.0 H POC ABG pO2 69.6 L ABG pO2 ABG HCO3 ABG Hemoglobin 8.5 L ABG Oxyhemoglobin 90.5 L ABG Sodium 133.6 L ABG Potassium 5.1 H ABG Chloride ABG Glucose 104 H Carboxyhemoglobin Sodium 133 L Potassium 5.7 H Chloride 96.3 L Carbon Dioxide 20 L D BUN 102 H Creatinine 4.4 H Glucose 101 H POC Glucose 120 H Lactic Acid Calcium 7.9 L Phosphorus Magnesium Ferritin Direct Bilirubin AST 61 H ALT 85 H Alkaline Phosphatase 144 H Lactate Dehydrogenase Total Creatine Kinase C-Reactive Protein Total Protein 5.4 L Albumin 2.0 L Triglycerides Arterial Blood Glucose 104 H Arterial Blood Ionized Calcium 4.3 L Urine Creatinine Urine Chloride Vancomycin Trough Coronavirus (PCR) Crossmatch 07/13/20 07/13/20 07/13/20 08:48 12:14 15:12 WBC 27.5 H RBC 3.03 L Hgb 8.7 L Hct 27.0 L MCHC RDW 18.0 H Plt Count Lymph % (Auto) [place] % (Auto) Lymph # (Auto) [place] # (Auto) Eos # (Auto) Seg Neutrophils % Seg Neuts % (Manual) Lymphocytes % (Manual) Monocytes % (Manual) Basophils % (Manual) Nucleated RBC % Seg Neutrophils # Seg Neutrophils # Man Lymphocytes # (Manual) Monocytes # (Manual) Eosinophils # (Manual) Basophils # (Manual) PT INR APTT D-Dimer Heparin Anti-Xa Level ABG pH POC ABG pCO2 POC ABG pO2 ABG pO2 ABG HCO3 ABG Hemoglobin ABG Oxyhemoglobin ABG Sodium ABG Potassium ABG Chloride ABG Glucose Carboxyhemoglobin Sodium Potassium 5.5 H Chloride Carbon Dioxide BUN 88 H Creatinine 3.8 H Glucose 133 H POC Glucose 134 H Lactic Acid Calcium 7.5 L Phosphorus Magnesium Ferritin Direct Bilirubin AST ALT Alkaline Phosphatase Lactate Dehydrogenase Total Creatine Kinase C-Reactive Protein Total Protein Albumin Triglycerides Arterial Blood Glucose Arterial Blood Ionized Calcium Urine Creatinine Urine Chloride Vancomycin Trough Coronavirus (PCR) Crossmatch 07/13/20 07/13/20 07/13/20 16:46 16:47 18:46 WBC RBC Hgb 7.4 L Hct 22.1 L MCHC RDW Plt Count Lymph % (Auto) [place] % (Auto) Lymph # (Auto) [place] # (Auto) Eos # (Auto) Seg Neutrophils % Seg Neuts % (Manual) Lymphocytes % (Manual) Monocytes % (Manual) Basophils % (Manual) Nucleated RBC % Seg Neutrophils # Seg Neutrophils # Man Lymphocytes # (Manual) Monocytes # (Manual) Eosinophils # (Manual) Basophils # (Manual) PT INR APTT D-Dimer Heparin Anti-Xa Level ABG pH POC ABG pCO2 POC ABG pO2 ABG pO2 ABG HCO3 ABG Hemoglobin ABG Oxyhemoglobin ABG Sodium ABG Potassium ABG Chloride ABG Glucose Carboxyhemoglobin Sodium Potassium Chloride Carbon Dioxide BUN Creatinine Glucose POC Glucose 118 H Lactic Acid Calcium Phosphorus Magnesium Ferritin Direct Bilirubin AST ALT Alkaline Phosphatase Lactate Dehydrogenase Total Creatine Kinase C-Reactive Protein Total Protein Albumin Triglycerides Arterial Blood Glucose Arterial Blood Ionized Calcium Urine Creatinine Urine Chloride Vancomycin Trough Coronavirus (PCR) Crossmatch See Detail 07/13/20 07/14/20 07/14/20 23:34 04:25 12:21 WBC RBC Hgb Hct MCHC RDW Plt Count Lymph % (Auto) [place] % (Auto) Lymph # (Auto) [place] # (Auto) Eos # (Auto) Seg Neutrophils % Seg Neuts % (Manual) Lymphocytes % (Manual) Monocytes % (Manual) Basophils % (Manual) Nucleated RBC % Seg Neutrophils # Seg Neutrophils # Man Lymphocytes # (Manual) Monocytes # (Manual) Eosinophils # (Manual) Basophils # (Manual) PT INR APTT D-Dimer Heparin Anti-Xa Level ABG pH POC ABG pCO2 POC ABG pO2 ABG pO2 ABG HCO3 ABG Hemoglobin 8.9 L ABG Oxyhemoglobin ABG Sodium 133.1 L ABG Potassium 4.7 H ABG Chloride ABG Glucose 113 H Carboxyhemoglobin Sodium Potassium Chloride Carbon Dioxide BUN Creatinine Glucose POC Glucose 109 H 109 H Lactic Acid Calcium Phosphorus Magnesium Ferritin Direct Bilirubin AST ALT Alkaline Phosphatase Lactate Dehydrogenase Total Creatine Kinase C-Reactive Protein Total Protein Albumin Triglycerides Arterial Blood Glucose 113 H Arterial Blood Ionized Calcium 4.4 L Urine Creatinine Urine Chloride Vancomycin Trough Coronavirus (PCR) Crossmatch 07/14/20 07/14/20 07/14/20 16:44 16:44 20:20 WBC 30.1 H RBC 2.60 L Hgb 7.4 L 5.6 L* Hct 23.0 L 18.1 L* MCHC RDW 18.0 H Plt Count Lymph % (Auto) [place] % (Auto) Lymph # (Auto) [place] # (Auto) Eos # (Auto) Seg Neutrophils % Seg Neuts % (Manual) 78.0 H Lymphocytes % (Manual) 5.0 L Monocytes % (Manual) Basophils % (Manual) Nucleated RBC % Seg Neutrophils # Seg Neutrophils # Man 23.5 H Lymphocytes # (Manual) Monocytes # (Manual) 0.9 H Eosinophils # (Manual) Basophils # (Manual) PT 15.6 H INR 1.26 H APTT D-Dimer Heparin Anti-Xa Level ABG pH POC ABG pCO2 POC ABG pO2 ABG pO2 ABG HCO3 ABG Hemoglobin ABG Oxyhemoglobin ABG Sodium ABG Potassium ABG Chloride ABG Glucose Carboxyhemoglobin Sodium Potassium Chloride Carbon Dioxide BUN Creatinine Glucose POC Glucose Lactic Acid Calcium Phosphorus Magnesium Ferritin Direct Bilirubin AST ALT Alkaline Phosphatase Lactate Dehydrogenase Total Creatine Kinase C-Reactive Protein Total Protein Albumin Triglycerides Arterial Blood Glucose Arterial Blood Ionized Calcium Urine Creatinine Urine Chloride Vancomycin Trough Coronavirus (PCR) Crossmatch 07/14/20 07/14/20 07/15/20 21:19 23:45 04:13 WBC RBC Hgb Hct MCHC RDW Plt Count Lymph % (Auto) [place] % (Auto) Lymph # (Auto) [place] # (Auto) Eos # (Auto) Seg Neutrophils % Seg Neuts % (Manual) Lymphocytes % (Manual) Monocytes % (Manual) Basophils % (Manual) Nucleated RBC % Seg Neutrophils # Seg Neutrophils # Man Lymphocytes # (Manual) Monocytes # (Manual) Eosinophils # (Manual) Basophils # (Manual) PT INR APTT D-Dimer Heparin Anti-Xa Level ABG pH POC ABG pCO2 POC ABG pO2 ABG pO2 ABG HCO3 ABG Hemoglobin 5.8 L 6.0 L ABG Oxyhemoglobin 93.8 L ABG Sodium 132.2 L 130.3 L ABG Potassium 5.5 H 5.8 H ABG Chloride ABG Glucose 118 H 122 H Carboxyhemoglobin Sodium Potassium Chloride Carbon Dioxide BUN Creatinine Glucose POC Glucose 126 H Lactic Acid Calcium Phosphorus Magnesium Ferritin Direct Bilirubin AST ALT Alkaline Phosphatase Lactate Dehydrogenase Total Creatine Kinase C-Reactive Protein Total Protein Albumin Triglycerides Arterial Blood Glucose 118 H 122 H Arterial Blood Ionized Calcium 4.3 L 4.2 L Urine Creatinine Urine Chloride Vancomycin Trough Coronavirus (PCR) Crossmatch 07/15/20 07/15/20 07/15/20 08:21 08:21 08:38 WBC 45.5 H* RBC 2.42 L Hgb 7.1 L Hct 21.5 L MCHC RDW 16.5 H Plt Count Lymph % (Auto) [place] % (Auto) Lymph # (Auto) [place] # (Auto) Eos # (Auto) Seg Neutrophils % Seg Neuts % (Manual) 89.0 H Lymphocytes % (Manual) 7.0 L Monocytes % (Manual) Basophils % (Manual) Nucleated RBC % Seg Neutrophils # Seg Neutrophils # Man 40.5 H Lymphocytes # (Manual) Monocytes # (Manual) 1.8 H Eosinophils # (Manual) Basophils # (Manual) PT 17.6 H INR 1.46 H APTT D-Dimer Heparin Anti-Xa Level ABG pH POC ABG pCO2 POC ABG pO2 ABG pO2 ABG HCO3 ABG Hemoglobin ABG Oxyhemoglobin ABG Sodium ABG Potassium ABG Chloride ABG Glucose Carboxyhemoglobin Sodium 131 L Potassium 6.0 H Chloride 94.6 L Carbon Dioxide 20 L BUN 116 H Creatinine 4.6 H Glucose 123 H POC Glucose Lactic Acid Calcium 7.6 L Phosphorus Magnesium Ferritin Direct Bilirubin AST ALT Alkaline Phosphatase Lactate Dehydrogenase Total Creatine Kinase C-Reactive Protein Total Protein Albumin Triglycerides Arterial Blood Glucose Arterial Blood Ionized Calcium Urine Creatinine Urine Chloride Vancomycin Trough Coronavirus (PCR) Crossmatch 07/15/20 07/15/20 07/15/20 11:29 17:23 18:52 WBC RBC Hgb Hct MCHC RDW Plt Count Lymph % (Auto) [place] % (Auto) Lymph # (Auto) [place] # (Auto) Eos # (Auto) Seg Neutrophils % Seg Neuts % (Manual) Lymphocytes % (Manual) Monocytes % (Manual) Basophils % (Manual) Nucleated RBC % Seg Neutrophils # Seg Neutrophils # Man Lymphocytes # (Manual) Monocytes # (Manual) Eosinophils # (Manual) Basophils # (Manual) PT INR APTT D-Dimer Heparin Anti-Xa Level ABG pH POC ABG pCO2 POC ABG pO2 ABG pO2 ABG HCO3 ABG Hemoglobin ABG Oxyhemoglobin ABG Sodium ABG Potassium ABG Chloride ABG Glucose Carboxyhemoglobin Sodium Potassium Chloride 97.9 L Carbon Dioxide BUN 78 H Creatinine 3.1 H Glucose 114 H POC Glucose 181 H 120 H Lactic Acid Calcium 7.3 L Phosphorus Magnesium Ferritin Direct Bilirubin AST ALT Alkaline Phosphatase Lactate Dehydrogenase Total Creatine Kinase C-Reactive Protein Total Protein Albumin Triglycerides Arterial Blood Glucose Arterial Blood Ionized Calcium Urine Creatinine Urine Chloride Vancomycin Trough Coronavirus (PCR) Crossmatch 07/15/20 07/16/20 07/16/20 18:52 01:10 03:38 WBC RBC Hgb 9.9 L 8.5 L Hct 29.8 L D 24.7 L MCHC RDW Plt Count Lymph % (Auto) [place] % (Auto) Lymph # (Auto) [place] # (Auto) Eos # (Auto) Seg Neutrophils % Seg Neuts % (Manual) Lymphocytes % (Manual) Monocytes % (Manual) Basophils % (Manual) Nucleated RBC % Seg Neutrophils # Seg Neutrophils # Man Lymphocytes # (Manual) Monocytes # (Manual) Eosinophils # (Manual) Basophils # (Manual) PT INR APTT D-Dimer Heparin Anti-Xa Level ABG pH 7.314 L POC ABG pCO2 48.5 H POC ABG pO2 58.9 L ABG pO2 ABG HCO3 ABG Hemoglobin 8.7 L ABG Oxyhemoglobin 86.7 L ABG Sodium 132.7 L ABG Potassium 5.2 H ABG Chloride ABG Glucose 99 H Carboxyhemoglobin Sodium Potassium Chloride Carbon Dioxide BUN Creatinine Glucose POC Glucose Lactic Acid Calcium Phosphorus Magnesium Ferritin Direct Bilirubin AST ALT Alkaline Phosphatase Lactate Dehydrogenase Total Creatine Kinase C-Reactive Protein Total Protein Albumin Triglycerides Arterial Blood Glucose 99 H Arterial Blood Ionized Calcium 3.9 L Urine Creatinine Urine Chloride Vancomycin Trough Coronavirus (PCR) Crossmatch 07/16/20 07/16/20 07/16/20 04:28 04:28 07:29 WBC 48.9 H* RBC 2.86 L Hgb 8.6 L 7.9 L Hct 25.4 L 24.4 L MCHC RDW 15.6 H Plt Count Lymph % (Auto) [place] % (Auto) Lymph # (Auto) [place] # (Auto) Eos # (Auto) Seg Neutrophils % Seg Neuts % (Manual) Lymphocytes % (Manual) Monocytes % (Manual) Basophils % (Manual) Nucleated RBC % Seg Neutrophils # Seg Neutrophils # Man Lymphocytes # (Manual) Monocytes # (Manual) Eosinophils # (Manual) Basophils # (Manual) PT INR APTT D-Dimer Heparin Anti-Xa Level ABG pH POC ABG pCO2 POC ABG pO2 ABG pO2 ABG HCO3 ABG Hemoglobin ABG Oxyhemoglobin ABG Sodium ABG Potassium ABG Chloride ABG Glucose Carboxyhemoglobin Sodium 136 L Potassium 5.4 H Chloride 95.0 L Carbon Dioxide BUN 85 H Creatinine 3.4 H Glucose 66 L POC Glucose Lactic Acid Calcium 6.8 L Phosphorus Magnesium Ferritin Direct Bilirubin AST ALT Alkaline Phosphatase Lactate Dehydrogenase Total Creatine Kinase C-Reactive Protein Total Protein Albumin Triglycerides Arterial Blood Glucose Arterial Blood Ionized Calcium Urine Creatinine Urine Chloride Vancomycin Trough Coronavirus (PCR) Crossmatch 07/16/20 07/16/20 07/16/20 11:52 18:06 18:08 WBC RBC Hgb 7.4 L Hct 22.5 L MCHC RDW Plt Count Lymph % (Auto) [place] % (Auto) Lymph # (Auto) [place] # (Auto) Eos # (Auto) Seg Neutrophils % Seg Neuts % (Manual) Lymphocytes % (Manual) Monocytes % (Manual) Basophils % (Manual) Nucleated RBC % Seg Neutrophils # Seg Neutrophils # Man Lymphocytes # (Manual) Monocytes # (Manual) Eosinophils # (Manual) Basophils # (Manual) PT INR APTT D-Dimer Heparin Anti-Xa Level ABG pH POC ABG pCO2 POC ABG pO2 ABG pO2 ABG HCO3 ABG Hemoglobin ABG Oxyhemoglobin ABG Sodium ABG Potassium ABG Chloride ABG Glucose Carboxyhemoglobin Sodium Potassium Chloride Carbon Dioxide BUN Creatinine Glucose POC Glucose 124 H 108 H Lactic Acid Calcium Phosphorus Magnesium Ferritin Direct Bilirubin AST ALT Alkaline Phosphatase Lactate Dehydrogenase Total Creatine Kinase C-Reactive Protein Total Protein Albumin Triglycerides Arterial Blood Glucose Arterial Blood Ionized Calcium Urine Creatinine Urine Chloride Vancomycin Trough Coronavirus (PCR) Crossmatch 07/17/20 07/17/20 07/17/20 03:27 15:25 15:25 WBC 46.2 H* RBC 2.05 L Hgb 6.1 L Hct 18.4 L* MCHC RDW 15.6 H Plt Count Lymph % (Auto) [place] % (Auto) Lymph # (Auto) [place] # (Auto) Eos # (Auto) Seg Neutrophils % Seg Neuts % (Manual) 87.0 H Lymphocytes % (Manual) 3.0 L Monocytes % (Manual) Basophils % (Manual) Nucleated RBC % Seg Neutrophils # Seg Neutrophils # Man 40.2 H Lymphocytes # (Manual) Monocytes # (Manual) 3.2 H Eosinophils # (Manual) Basophils # (Manual) PT 18.2 H INR 1.52 H APTT D-Dimer Heparin Anti-Xa Level ABG pH 7.313 L POC ABG pCO2 50.9 H POC ABG pO2 ABG pO2 ABG HCO3 ABG Hemoglobin 7.5 L ABG Oxyhemoglobin ABG Sodium 131.8 L ABG Potassium 4.6 H ABG Chloride ABG Glucose 105 H Carboxyhemoglobin Sodium Potassium Chloride Carbon Dioxide BUN Creatinine Glucose POC Glucose Lactic Acid Calcium Phosphorus Magnesium Ferritin Direct Bilirubin AST ALT Alkaline Phosphatase Lactate Dehydrogenase Total Creatine Kinase C-Reactive Protein Total Protein Albumin Triglycerides Arterial Blood Glucose 105 H Arterial Blood Ionized Calcium 3.9 L Urine Creatinine Urine Chloride Vancomycin Trough Coronavirus (PCR) Crossmatch 07/17/20 07/18/20 07/18/20 Unknown 03:10 05:06 WBC 37.9 H RBC 2.91 L Hgb 8.5 L Hct 25.6 L D MCHC RDW Plt Count Lymph % (Auto) [place] % (Auto) Lymph # (Auto) [place] # (Auto) Eos # (Auto) Seg Neutrophils % Seg Neuts % (Manual) Lymphocytes % (Manual) Monocytes % (Manual) Basophils % (Manual) Nucleated RBC % Seg Neutrophils # Seg Neutrophils # Man Lymphocytes # (Manual) Monocytes # (Manual) Eosinophils # (Manual) Basophils # (Manual) PT INR APTT D-Dimer Heparin Anti-Xa Level ABG pH POC ABG pCO2 POC ABG pO2 114.9 H ABG pO2 ABG HCO3 ABG Hemoglobin 8.6 L ABG Oxyhemoglobin ABG Sodium 130.6 L ABG Potassium 4.9 H ABG Chloride ABG Glucose Carboxyhemoglobin Sodium Potassium Chloride Carbon Dioxide BUN Creatinine Glucose POC Glucose Lactic Acid Calcium Phosphorus Magnesium Ferritin Direct Bilirubin AST ALT Alkaline Phosphatase Lactate Dehydrogenase Total Creatine Kinase C-Reactive Protein Total Protein Albumin Triglycerides Arterial Blood Glucose Arterial Blood Ionized Calcium 3.8 L Urine Creatinine Urine Chloride Vancomycin Trough Coronavirus (PCR) Crossmatch See Detail 07/18/20 07/19/20 07/19/20 05:06 00:06 03:57 WBC RBC Hgb Hct MCHC RDW Plt Count Lymph % (Auto) [place] % (Auto) Lymph # (Auto) [place] # (Auto) Eos # (Auto) Seg Neutrophils % Seg Neuts % (Manual) Lymphocytes % (Manual) Monocytes % (Manual) Basophils % (Manual) Nucleated RBC % Seg Neutrophils # Seg Neutrophils # Man Lymphocytes # (Manual) Monocytes # (Manual) Eosinophils # (Manual) Basophils # (Manual) PT INR APTT D-Dimer Heparin Anti-Xa Level ABG pH POC ABG pCO2 POC ABG pO2 ABG pO2 ABG HCO3 ABG Hemoglobin 8.6 L ABG Oxyhemoglobin ABG Sodium 130.4 L ABG Potassium ABG Chloride ABG Glucose Carboxyhemoglobin Sodium Potassium 5.4 H Chloride Carbon Dioxide BUN 79 H Creatinine 3.2 H Glucose POC Glucose 69 L Lactic Acid Calcium 6.9 L Phosphorus Magnesium Ferritin Direct Bilirubin AST ALT 58 H Alkaline Phosphatase Lactate Dehydrogenase Total Creatine Kinase C-Reactive Protein Total Protein 4.3 L D Albumin 1.7 L Triglycerides 306 H Arterial Blood Glucose Arterial Blood Ionized Calcium 3.9 L Urine Creatinine Urine Chloride Vancomycin Trough Coronavirus (PCR) Crossmatch 07/19/20 07/19/20 07/19/20 05:22 09:15 09:15 WBC 32.5 H RBC 2.57 L Hgb 7.8 L Hct 22.8 L MCHC RDW 15.3 H Plt Count Lymph % (Auto) [place] % (Auto) Lymph # (Auto) [place] # (Auto) Eos # (Auto) Seg Neutrophils % Seg Neuts % (Manual) Lymphocytes % (Manual) Monocytes % (Manual) Basophils % (Manual) Nucleated RBC % Seg Neutrophils # Seg Neutrophils # Man Lymphocytes # (Manual) Monocytes # (Manual) Eosinophils # (Manual) Basophils # (Manual) PT INR APTT D-Dimer Heparin Anti-Xa Level ABG pH POC ABG pCO2 POC ABG pO2 ABG pO2 ABG HCO3 ABG Hemoglobin ABG Oxyhemoglobin ABG Sodium ABG Potassium ABG Chloride ABG Glucose Carboxyhemoglobin Sodium 135 L Potassium Chloride 96.3 L Carbon Dioxide BUN 61 H Creatinine 2.8 H Glucose POC Glucose 64 L Lactic Acid Calcium 6.8 L Phosphorus Magnesium Ferritin Direct Bilirubin AST 54 H ALT 65 H Alkaline Phosphatase Lactate Dehydrogenase Total Creatine Kinase C-Reactive Protein Total Protein 4.3 L Albumin 1.8 L Triglycerides Arterial Blood Glucose Arterial Blood Ionized Calcium Urine Creatinine Urine Chloride Vancomycin Trough Coronavirus (PCR) Crossmatch 07/20/20 07/20/20 07/20/20 05:20 06:00 06:07 WBC 28.1 H RBC 2.53 L Hgb 7.7 L Hct 22.7 L MCHC RDW 15.5 H Plt Count Lymph % (Auto) [place] % (Auto) Lymph # (Auto) [place] # (Auto) Eos # (Auto) Seg Neutrophils % Seg Neuts % (Manual) Lymphocytes % (Manual) Monocytes % (Manual) Basophils % (Manual) Nucleated RBC % Seg Neutrophils # Seg Neutrophils # Man Lymphocytes # (Manual) Monocytes # (Manual) Eosinophils # (Manual) Basophils # (Manual) PT INR APTT D-Dimer Heparin Anti-Xa Level ABG pH POC ABG pCO2 POC ABG pO2 ABG pO2 ABG HCO3 ABG Hemoglobin 6.3 L ABG Oxyhemoglobin ABG Sodium 130.0 L ABG Potassium ABG Chloride ABG Glucose 114 H Carboxyhemoglobin Sodium Potassium Chloride Carbon Dioxide BUN Creatinine Glucose POC Glucose 110 H Lactic Acid Calcium Phosphorus Magnesium Ferritin Direct Bilirubin AST ALT Alkaline Phosphatase Lactate Dehydrogenase Total Creatine Kinase C-Reactive Protein Total Protein Albumin Triglycerides Arterial Blood Glucose 114 H Arterial Blood Ionized Calcium 3.9 L Urine Creatinine Urine Chloride Vancomycin Trough Coronavirus (PCR) Crossmatch 07/20/20 07/21/20 07/21/20 17:19 05:02 05:40 WBC 32.9 H RBC 2.78 L Hgb 8.5 L Hct 25.2 L MCHC RDW 15.7 H Plt Count 74 L Lymph % (Auto) [place] % (Auto) Lymph # (Auto) [place] # (Auto) Eos # (Auto) Seg Neutrophils % Seg Neuts % (Manual) Lymphocytes % (Manual) Monocytes % (Manual) Basophils % (Manual) Nucleated RBC % Seg Neutrophils # Seg Neutrophils # Man Lymphocytes # (Manual) Monocytes # (Manual) Eosinophils # (Manual) Basophils # (Manual) PT INR APTT D-Dimer Heparin Anti-Xa Level ABG pH POC ABG pCO2 POC ABG pO2 73.2 L ABG pO2 ABG HCO3 ABG Hemoglobin 9.1 L ABG Oxyhemoglobin 93.4 L ABG Sodium ABG Potassium 3.1 L ABG Chloride ABG Glucose 112 H Carboxyhemoglobin Sodium Potassium Chloride Carbon Dioxide BUN Creatinine Glucose POC Glucose 137 H Lactic Acid Calcium Phosphorus Magnesium Ferritin Direct Bilirubin AST ALT Alkaline Phosphatase Lactate Dehydrogenase Total Creatine Kinase C-Reactive Protein Total Protein Albumin Triglycerides Arterial Blood Glucose 112 H Arterial Blood Ionized Calcium Urine Creatinine Urine Chloride Vancomycin Trough Coronavirus (PCR) Crossmatch 07/22/20 07/22/20 07/22/20 04:11 16:00 16:00 WBC 38.7 H RBC 2.72 L Hgb 8.1 L Hct 24.5 L MCHC RDW 16.1 H Plt Count Lymph % (Auto) [place] % (Auto) Lymph # (Auto) [place] # (Auto) Eos # (Auto) Seg Neutrophils % Seg Neuts % (Manual) Lymphocytes % (Manual) Monocytes % (Manual) Basophils % (Manual) Nucleated RBC % Seg Neutrophils # Seg Neutrophils # Man Lymphocytes # (Manual) Monocytes # (Manual) Eosinophils # (Manual) Basophils # (Manual) PT INR APTT D-Dimer Heparin Anti-Xa Level ABG pH POC ABG pCO2 POC ABG pO2 67.7 L ABG pO2 ABG HCO3 ABG Hemoglobin 7.4 L ABG Oxyhemoglobin 91.7 L ABG Sodium ABG Potassium 2.9 L ABG Chloride ABG Glucose 105 H Carboxyhemoglobin Sodium Potassium Chloride Carbon Dioxide BUN Creatinine Glucose POC Glucose Lactic Acid Calcium Phosphorus Magnesium Ferritin Direct Bilirubin AST ALT Alkaline Phosphatase Lactate Dehydrogenase Total Creatine Kinase C-Reactive Protein Total Protein Albumin Triglycerides 197 H Arterial Blood Glucose 105 H Arterial Blood Ionized Calcium Urine Creatinine Urine Chloride Vancomycin Trough Coronavirus (PCR) Crossmatch 07/23/20 07/23/20 07/23/20 04:56 11:49 Unknown WBC RBC Hgb Hct MCHC RDW Plt Count Lymph % (Auto) [place] % (Auto) Lymph # (Auto) [place] # (Auto) Eos # (Auto) Seg Neutrophils % Seg Neuts % (Manual) Lymphocytes % (Manual) Monocytes % (Manual) Basophils % (Manual) Nucleated RBC % Seg Neutrophils # Seg Neutrophils # Man Lymphocytes # (Manual) Monocytes # (Manual) Eosinophils # (Manual) Basophils # (Manual) PT INR APTT D-Dimer Heparin Anti-Xa Level ABG pH POC ABG pCO2 POC ABG pO2 75.7 L ABG pO2 ABG HCO3 ABG Hemoglobin 9.3 L ABG Oxyhemoglobin ABG Sodium ABG Potassium 3.1 L ABG Chloride 108.0 H ABG Glucose 101 H Carboxyhemoglobin Sodium Potassium 3.1 L D Chloride Carbon Dioxide BUN 36 H Creatinine 2.1 H Glucose 103 H POC Glucose 107 H Lactic Acid Calcium Phosphorus Magnesium Ferritin Direct Bilirubin AST ALT Alkaline Phosphatase Lactate Dehydrogenase Total Creatine Kinase C-Reactive Protein Total Protein Albumin Triglycerides Arterial Blood Glucose 101 H Arterial Blood Ionized Calcium Urine Creatinine Urine Chloride Vancomycin Trough Coronavirus (PCR) Crossmatch 07/24/20 07/24/20 07/24/20 06:40 06:40 20:38 WBC 31.4 H RBC 2.37 L Hgb 7.2 L Hct 21.7 L MCHC RDW 17.0 H Plt Count Lymph % (Auto) [place] % (Auto) Lymph # (Auto) [place] # (Auto) Eos # (Auto) Seg Neutrophils % Seg Neuts % (Manual) 85.0 H Lymphocytes % (Manual) 6.0 L Monocytes % (Manual) Basophils % (Manual) Nucleated RBC % Seg Neutrophils # Seg Neutrophils # Man 26.7 H Lymphocytes # (Manual) Monocytes # (Manual) 0.9 H Eosinophils # (Manual) Basophils # (Manual) 0.3 H PT INR APTT D-Dimer Heparin Anti-Xa Level ABG pH POC ABG pCO2 POC ABG pO2 ABG pO2 ABG HCO3 ABG Hemoglobin ABG Oxyhemoglobin ABG Sodium ABG Potassium ABG Chloride ABG Glucose Carboxyhemoglobin Sodium Potassium 3.1 L Chloride Carbon Dioxide BUN 46 H Creatinine 2.5 H Glucose 109 H POC Glucose Lactic Acid Calcium Phosphorus Magnesium Ferritin Direct Bilirubin AST 46 H ALT 74 H Alkaline Phosphatase 180 H Lactate Dehydrogenase Total Creatine Kinase C-Reactive Protein Total Protein 4.6 L Albumin 2.0 L Triglycerides Arterial Blood Glucose Arterial Blood Ionized Calcium Urine Creatinine Urine Chloride Vancomycin Trough Coronavirus (PCR) Crossmatch See Detail 07/24/20 07/25/20 07/25/20 20:40 05:39 05:39 WBC 26.6 H RBC 2.79 L Hgb 8.5 L Hct 25.6 L MCHC RDW 16.1 H Plt Count Lymph % (Auto) [place] % (Auto) Lymph # (Auto) [place] # (Auto) Eos # (Auto) Seg Neutrophils % Seg Neuts % (Manual) 72.0 H Lymphocytes % (Manual) 2.0 L Monocytes % (Manual) Basophils % (Manual) 3.0 H Nucleated RBC % 1.0 H Seg Neutrophils # Seg Neutrophils # Man 19.2 H Lymphocytes # (Manual) 0.5 L Monocytes # (Manual) 1.6 H Eosinophils # (Manual) 0.5 H Basophils # (Manual) 0.8 H PT 15.3 H INR 1.21 H APTT D-Dimer Heparin Anti-Xa Level ABG pH POC ABG pCO2 POC ABG pO2 ABG pO2 ABG HCO3 ABG Hemoglobin ABG Oxyhemoglobin ABG Sodium ABG Potassium ABG Chloride ABG Glucose Carboxyhemoglobin Sodium Potassium Chloride Carbon Dioxide BUN 55 H Creatinine 2.9 H Glucose POC Glucose Lactic Acid Calcium Phosphorus Magnesium Ferritin Direct Bilirubin AST ALT Alkaline Phosphatase Lactate Dehydrogenase Total Creatine Kinase C-Reactive Protein Total Protein Albumin Triglycerides Arterial Blood Glucose Arterial Blood Ionized Calcium Urine Creatinine Urine Chloride Vancomycin Trough Coronavirus (PCR) Crossmatch 07/25/20 07/26/20 07/26/20 17:22 08:46 08:46 WBC RBC Hgb Hct MCHC RDW Plt Count Lymph % (Auto) [place] % (Auto) Lymph # (Auto) [place] # (Auto) Eos # (Auto) Seg Neutrophils % Seg Neuts % (Manual) Lymphocytes % (Manual) Monocytes % (Manual) Basophils % (Manual) Nucleated RBC % Seg Neutrophils # Seg Neutrophils # Man Lymphocytes # (Manual) Monocytes # (Manual) Eosinophils # (Manual) Basophils # (Manual) PT INR APTT D-Dimer Heparin Anti-Xa Level ABG pH POC ABG pCO2 POC ABG pO2 ABG pO2 ABG HCO3 ABG Hemoglobin ABG Oxyhemoglobin ABG Sodium ABG Potassium ABG Chloride ABG Glucose Carboxyhemoglobin Sodium Potassium Chloride Carbon Dioxide 31 H BUN 37 H Creatinine 2.2 H Glucose POC Glucose 65 L Lactic Acid Calcium 8.2 L Phosphorus Magnesium Ferritin Direct Bilirubin AST ALT Alkaline Phosphatase Lactate Dehydrogenase Total Creatine Kinase C-Reactive Protein Total Protein Albumin Triglycerides 166 H Arterial Blood Glucose Arterial Blood Ionized Calcium Urine Creatinine Urine Chloride Vancomycin Trough Coronavirus (PCR) Crossmatch 07/26/20 07/27/20 07/27/20 Unknown 04:00 07:09 WBC 24.6 H 27.1 H RBC 2.68 L 2.74 L Hgb 8.3 L 8.3 L Hct 24.7 L 25.3 L MCHC RDW 16.3 H 17.2 H Plt Count Lymph % (Auto) [place] % (Auto) Lymph # (Auto) [place] # (Auto) Eos # (Auto) Seg Neutrophils % Seg Neuts % (Manual) 82.0 H 85.0 H Lymphocytes % (Manual) 5.0 L 4.0 L Monocytes % (Manual) 8.0 H Basophils % (Manual) Nucleated RBC % Seg Neutrophils # Seg Neutrophils # Man 20.2 H 23.0 H Lymphocytes # (Manual) 1.1 L Monocytes # (Manual) 2.0 H 1.6 H Eosinophils # (Manual) 0.7 H 1.1 H Basophils # (Manual) 0.3 H PT INR APTT D-Dimer Heparin Anti-Xa Level ABG pH POC ABG pCO2 POC ABG pO2 ABG pO2 ABG HCO3 ABG Hemoglobin ABG Oxyhemoglobin ABG Sodium ABG Potassium ABG Chloride ABG Glucose Carboxyhemoglobin Sodium Potassium Chloride Carbon Dioxide BUN Creatinine Glucose POC Glucose 115 H Lactic Acid Calcium Phosphorus Magnesium Ferritin Direct Bilirubin AST ALT Alkaline Phosphatase Lactate Dehydrogenase Total Creatine Kinase C-Reactive Protein Total Protein Albumin Triglycerides Arterial Blood Glucose Arterial Blood Ionized Calcium Urine Creatinine Urine Chloride Vancomycin Trough Coronavirus (PCR) Crossmatch 07/27/20 07/27/20 07/28/20 21:45 22:36 00:05 WBC RBC Hgb 6.4 L Hct 19.8 L* MCHC RDW Plt Count Lymph % (Auto) [place] % (Auto) Lymph # (Auto) [place] # (Auto) Eos # (Auto) Seg Neutrophils % Seg Neuts % (Manual) Lymphocytes % (Manual) Monocytes % (Manual) Basophils % (Manual) Nucleated RBC % Seg Neutrophils # Seg Neutrophils # Man Lymphocytes # (Manual) Monocytes # (Manual) Eosinophils # (Manual) Basophils # (Manual) PT INR APTT D-Dimer Heparin Anti-Xa Level ABG pH POC ABG pCO2 POC ABG pO2 ABG pO2 ABG HCO3 ABG Hemoglobin ABG Oxyhemoglobin ABG Sodium ABG Potassium ABG Chloride ABG Glucose Carboxyhemoglobin Sodium Potassium Chloride Carbon Dioxide BUN Creatinine Glucose POC Glucose 124 H Lactic Acid Calcium Phosphorus Magnesium Ferritin Direct Bilirubin AST ALT Alkaline Phosphatase Lactate Dehydrogenase Total Creatine Kinase C-Reactive Protein Total Protein Albumin Triglycerides Arterial Blood Glucose Arterial Blood Ionized Calcium Urine Creatinine Urine Chloride Vancomycin Trough Coronavirus (PCR) Crossmatch See Detail 07/28/20 07/28/20 07/28/20 04:00 06:27 Unknown WBC 30.3 H RBC 2.35 L Hgb 7.2 L Hct 21.2 L MCHC RDW 16.8 H Plt Count Lymph % (Auto) [place] % (Auto) Lymph # (Auto) [place] # (Auto) Eos # (Auto) Seg Neutrophils % Seg Neuts % (Manual) Lymphocytes % (Manual) Monocytes % (Manual) Basophils % (Manual) Nucleated RBC % Seg Neutrophils # Seg Neutrophils # Man Lymphocytes # (Manual) Monocytes # (Manual) Eosinophils # (Manual) Basophils # (Manual) PT INR APTT D-Dimer Heparin Anti-Xa Level ABG pH POC ABG pCO2 POC ABG pO2 ABG pO2 ABG HCO3 ABG Hemoglobin ABG Oxyhemoglobin ABG Sodium ABG Potassium ABG Chloride ABG Glucose Carboxyhemoglobin Sodium Potassium 3.2 L Chloride Carbon Dioxide BUN 35 H Creatinine 2.3 H Glucose 123 H POC Glucose 107 H Lactic Acid Calcium 7.2 L Phosphorus Magnesium Ferritin Direct Bilirubin AST ALT Alkaline Phosphatase Lactate Dehydrogenase Total Creatine Kinase C-Reactive Protein Total Protein Albumin Triglycerides Arterial Blood Glucose Arterial Blood Ionized Calcium Urine Creatinine Urine Chloride Vancomycin Trough Coronavirus (PCR) Crossmatch Chest x-ray: pending Allied health notes reviewed: nursing
[2020-07-28 15:36] LABS: ABG Base Excess -2.7 mmol/L (-2.0-3.0); ABG HCO3 23.1 mmol/L (20.0-26.0); ABG Methemoglobin 0.6 % (0.0-1.5); ABG Oxygen Saturation 92.4 % (95.0-99.0); ABG PCO2 44.4 mm Hg; ABG PH 7.333 pH Units (7.350-7.450)
[2020-07-28] MEDS: HEPARIN 10,000 UNIT/1 ML VIAL IV PRN (20:45)
[2020-07-29] MEDS: INSULIN REGULAR, HUMAN 100 UNITS/1 ML SUB-Q SCH ×4 (00:10→18:18)
[2020-07-29] MEDS: AMPICILLIN/NS 2 GM/100 ML 2 GM/100 ML BAG IV SCH ×2 (00:29→12:24)
[2020-07-29] MEDS: fentaNYL DRIP Premix 2,000 MCG/100 ML BAG IV SCH ×7 (01:40→21:11)
[2020-07-29] MEDS: NORepinephrine/NS 4 MG-250 ML 4 MG/250 ML BAG IV SCH ×4 (02:30→21:13)
[2020-07-29 05:24] LABS: Hemoglobin 6.6 gm/dl (11.8-15.2); Mean Corpuscular HGB Conc 33 % (32-34); Mean Corpuscular Volume 93 fl (84-94); Platelet Count 187 K/mm3 (140-440); Red Blood Count 2.15 M/mm3 (3.65-5.03); Red Cell Distribution Width 17.5 % (13.2-15.2)
[2020-07-29 05:27] LABS: Hematocrit 19.9 % (35.5-45.6)
[2020-07-29 05:28] LABS: Eosinophils % (Auto) 2.1 % (0.0-4.3); Lymphocytes % (Auto) 3.2 % (13.4-35.0)
[2020-07-29 05:29] LABS: Basophils % (Auto) 1.2 % (0.0-1.8); Eosinophils # (Auto) 0.8 K/mm3 (0.0-0.4); Lymphocytes # (Auto) 1.2 K/mm3 (1.2-5.4); Monocytes # (Auto) 2.7 K/mm3 (0.0-0.8)
[2020-07-29 05:30] LABS: Basophils # (Auto) 0.4 K/mm3 (0.0-0.1)
[2020-07-29 05:33] LABS: Calcium 7.5 mg/dL (8.4-10.2)
[2020-07-29] MEDS: EPOETIN ALFA-EPBX 10,000 UNIT/1 ML VIAL IV PRN (09:36)
[2020-07-29] MEDS: POLYETHYLENE GLYCOL 3350 17 GM POWDER PO SCH (10:02)
[2020-07-29] MEDS: ZINC SULFATE 220 MG CAP PO SCH ×2 (10:02→21:16)
[2020-07-29] MEDS: QUEtiapine 200 MG TAB PO SCH ×2 (10:02→21:16)
[2020-07-29] MEDS: PANTOPRAZOLE 40 MG INJ IV SCH ×2 (10:02→21:16)
[2020-07-29] MEDS: CHOLECALCIFEROL (VIT D3) 1000 UNIT (25 mcg) TAB PO SCH (10:02)
[2020-07-29] MEDS: DOCUSATE SODIUM 100 MG/10 ML ORAL LIQD FEEDTUBE SCH ×2 (10:02→21:16)
[2020-07-29] MEDS: AMIODARONE 200 MG TAB PO SCH ×2 (10:03→21:16)
[2020-07-29] MEDS: ASCORBIC ACID 250 MG TAB PO SCH ×2 (10:03→21:15)
[2020-07-29] MEDS: SODIUM HYPOCHLORITE, DAKIN'S 1/2 STRENGTH (0.25%) 473 ML TOPICAL SOLN TP SCH ×2 (10:18→21:17)
--- NOTE | 2020-07-29 10:46 | Progress Note ---
Assessment and Plan Pt s/p trach and PEG. tele reviewed - in AFib/AFlutter HR 130s, IV amio resumed overnight. Cont present cardiac management. The patient has been seen in conjunction with Dr. Singh who agrees with the assessment and plan of care. - Patient Problems (1) Acute respiratory failure with hypoxia Current Visit: Yes Status: Acute (2) Pneumonia due to COVID-19 virus Current Visit: Yes Status: Acute (3) Sepsis Current Visit: Yes Status: Acute Qualifiers: Severe sepsis acute organ dysfunction type: acute respiratory failure Severe sepsis shock status: with septic shock (4) Paroxysmal atrial fibrillation with rapid ventricular response Current Visit: Yes Status: Acute (5) Acute renal failure Current Visit: Yes Status: Acute (6) Elevated LFTs Current Visit: Yes Status: Acute (7) Anemia Current Visit: Yes Status: Acute Subjective Date of service: 07/29/20 Principal diagnosis: ARF; Septic Shock; COVID-19 PNA; Atrial fibrillation; Obesity Interval history: pt s/p trach and PEG. tele reviewed - in AFib/AFlutter HR 130s, IV amio resumed overnight. Objective Last Vital Signs Temp 97.8 F 07/29/20 09:45 Pulse 134 H 07/29/20 10:30 Resp 21 07/29/20 10:30 BP 115/64 07/29/20 10:30 Pulse Ox 94 07/29/20 10:30 - Physical Examination General: Other (trached, sedated) Neck: Positive: neck supple Cardiac: Positive: irregularly irregular, S1/S2, Tachycardia Lungs: Positive: Oxygen, Ventilated Respirations Neuro: Positive: Other (trached, sedated) Abdomen: Positive: Unremarkable Skin: Negative: Rash, Wound Extremities: Present: upper extr. pulses, lower extr. pulses, +1 Edema - Labs and Meds CBC 07/29/20 Range/Units 04:39 WBC 38.6 H (4.5-11.0) K/mm3 RBC 2.15 L (3.65-5.03) M/mm3 Hgb 6.6 L (11.8-15.2) gm/dl Hct 19.9 L* (35.5-45.6) % Plt Count 187 (140-440) K/mm3 Lymph # (Auto) 1.2 (1.2-5.4) K/mm3 [place] # (Auto) 2.7 H (0.0-0.8) K/mm3 Eos # (Auto) 0.8 H (0.0-0.4) K/mm3 Baso # (Auto) 0.4 H (0.0-0.1) K/mm3 Comprehensive Metabolic Panel 07/29/20 Range/Units 04:39 Sodium 135 L (137-145) mmol/L Potassium 3.1 L (3.6-5.0) mmol/L Chloride 98.5 (98-107) mmol/L Carbon Dioxide 23 (22-30) mmol/L BUN 42 H (9-20) mg/dL Creatinine 2.5 H (0.8-1.3) mg/dL Glucose 109 H (75-100) mg/dL Calcium 7.5 L (8.4-10.2) mg/dL - Imaging and Cardiology EKG: report reviewed, image reviewed Echo: report reviewed (TDS, EF 55-60%. ) - Telemetry EKG Rhythm: Atrial Fibrillation - EKG Sinus rhythms and dysrhythmias: sinus tachycardia - Allied health notes Allied health notes reviewed: nursing
--- NOTE | 2020-07-29 10:54 | Progress Note ---
Assessment and Plan Assessment and plan: 59-year-old white male who was admitted for pneumonia secondary to Covid with associated respiratory failure and sepsis. Severe septic shock COVID-19 pneumonia Sacral wound, stage 4 Leukocytosis Acute metabolic encephalopathy Acute hypoxic respiratory failure Enterococcus bacteremia Pneumomediastinum Acute kidney injury likely secondary to acute tubular necrosis which progressed to hemodialysis SVT/proximal atrial fibrillation Elevated LFTs Anemia likely due to severe sepsis had declining renal function Morbid obesity Leukocytosis Hypoalbuminemia 06/18: Patient got intubated overnight. Patient was placed on BiPAP to maintain oxygenation with 100% FiO2 but apparently he found to take off his argueta which made his oxygen saturation go down at 60s/50s and patient was found altered mental status. Code met was called immediately. Patient was transferred to ICU and intubated, patient currently on 2 pressors, intubated with 100% FiO2, renal function noted to be decline, nephrology consulted. Discussed with [facility] physician Dr. Thompson and requested call back on Saturday. Poor prognosis, continue to monitor with aggressive supportive care. Also called family/ to update clinical status. 06/19: Repeat COVID test was positive. cont cefepime, remdesivir per ID recom mendation. follow inflammatory markers, cbc, bmp. placed on heparin drip for atrial fib 06/20: Remains on mechanical ventilation, on 2 pressors, on heparin drip. discussed with and daughter by phone. Renal function declining. cont supportive care for now. 06/21: Renal function cont to decline, urine outpt sig decreased. started on lasix 80mg BID, plan to follow urine output, if no improvement patient need to start on HD. called and daughter today. updated all clinical details 06/22: Renal function continues to decline with uremia and hyperkalemia. Will need to proceed with hemodialysis. Nephrology discussed with the family and they agrees for the hemodialysis. Patient remains on pressor support and mechanical ventilation. Vas-Cath placed today by vascular started on hemodialysis today. 06/23: 2nd round of HD today, remains on 2 pressors. per RN not tolerating TF, has no record of BM since 06/18. start on stool softner. follow cbc/bmp. updated family ( and daughter) by phone -all question answered to best of my knowledge and to their satisfaction. Patient remains critically ill with a very poor prognosis. 06/24: Continue supportive care, Very poor prognosis, [employer] Coordinator to discuss with family in am due to the futility of the condition. 06/25/2020 continue supportive care very poor prognosis 06/26/2020 continue supportive care very poor prognosis family updated 06/27/2020 continue supportive care and weaning if possible 06/28/2020 continue supportive care, talk with at length 06/29: Resumed care. K level persistently high. give one dose of bicarbonate, plan for HD today, recheck k after HD. updated family by phone 06/30: updated family by phone. Patient remains on amiodarone drip and vasopressin. Getting HD at the bedside. Tolerating tube feeding at low rate. 07/01: Hb dropped to 6.4 today, transfuse one unit PRBC. patient is off pressor today, remains on amioderone. cont to monitor 07/02: Called patient and updated clinical details. Patient remains critically ill, still intubated. Patient's oxygen requirement and PEEP pressure has went down. Continue weaning protocol per critical care recommendation. Patient remains off pressor. Continue to wean off from amiodarone and plan to rate control with p.o. medications. Tolerating tube feeding. H&H stable today. Order for stool for occult blood. Monitor H&H and BMP. Continue to follow clinically 07/03: discussed with [facility] physician today. Patient back on 100percent Fio2 since last night. planned for emergent Hd today. spiked fever, start IV Cefepime + Vancomycin renally dosed. Restarted Levophed today, remains on amiodarone drip. Patient family was updated by critical care attending today. 07/04: Patient has hemodialysis yesterday and also plan for today for volume overload and pulmonary edema. Patient currently on 80% FiO2. Remains on Levophed and amiodarone. Hemoglobin dropped to 6.7 without any evidence of active bleeding. LFTs remain stable. Repeat Covid test on 06/30 and 07/03 remains positive. Will transfuse another unit of packed RBC today. Called family for update -explained family that patient is critically ill with very poor prognosis. 07/05: Patient on 70% FiO2 with PEEP of 14. h/h stable after transfusion. hyperkalemia improved, cont sodiumbicarbonate pill with TF. follow BMP. off levophed today, remains on amioderone. poor prognosis. 07/06: Patient remains on amiodarone drip, maintaining BP without any pressor. FiO2 requirement trended down to 60% with PEEP of 14. Continue to follow clinically. Plan to wean off amiodarone drip as tolerated. Wean off from sedation as tolerated. Updated family. Patient remains critically ill with poor prognosis. 07/07: Called family for update. Off amiodarone drip today, patient also off pressor. FiO2 requirement trended up again to 80-100%. Continue to provide supportive care, monitor clinically. Having difficulty to wean off from the vent support. Patient is persistently positive for COVID-19 and COVID-19 antibody is nonreactive. Patient remains critically ill with very poor prognosis. 07/08: Continue supportive care. Facilities Maintenance Assistant ticket taker ferryboat and printing manager input noted. Prognosis remains guarded to poor. Management per team. Critical care time 35-minute 07/09/20 patient is tachycardic. Heart rate 121. Hemoglobin 7.3. Patient is having hemodialysis. Continue supportive care. Patient having difficulty to wean off from the vent support. Prognosis is poor. Nephrology and cardiology follow-up. Recheck CBC BMP in the morning. Continue current management. 07/10/20 patient seen and examined, remains on full ventilator patient is doing better. Patient is off pressor. heart rate 123. Hemoglobin 6.8 and hematocrit 20.7. WBC is 18.1. Continue supportive care. Patient having difficulty to wean off from the vent support. We will started on Zosyn 4.5 g IV every 8 hours. Will transfuse 1 unit of packed red blood cell. Prognosis is poor. Nephrology and cardiology follow up. Recheck CBC BMP in the morning 07/11: remains off vasopressor, h/h appropriately responded to 1 unit PRBC. HD today. Remain on MV with fiO2 at 70%. peep 10. No acute events reported overnight. 07/12: Patient remains in atrial fibrillation on the monitoring manager, vas opressor support with Levophed and vasopressin, sedated with fentanyl and propofol. Vent settings: CMV 500/25/14/0.60. Patient remains hypercarbic on ABG 07/13: Patient remains on vasopressin, fentanyl and propofol with rectal tube in place. This morning some examination patient was on assist control 25/500/14/0.60. Patient received hemodialysis today. No acute events reported overnight. 07/14: Remains on vasopressin, fentanyl and propofol with tube in place. Rectal tube in place with noted blood clots, GI consulted, on 07/13 H/H dropped from 8.7/27 to 7.4/22 and anticoagulation discontinued. This morning I spoke to his who still wishes for the patient to remain a full code despite update with continued use of vasopressor (vasopressin), current ventilatory support (CMV 500/25/14/0.60) and recent development of rectal bleeding. Patient's family requests an update from [facility] and GI. Cardio changed amio from PO to IV given elevated HR 07/15: Today the patient received a total of 5 units of PRBC and is still having bleeding through his rectal tube. CTA abdomen/pelvis is pending, patient remains on Levophed, fentanyl, propofol, vasopressin and received hemodialysis today. He was also hyperkalemic today to 6 and he received insulin and D50. Extensive conversation with family conducted by [facility] and hospitalist and his and 2 daughters did visit him today at the bedside. 07/16: Continues with full ventilatory support. FMS still inplace with some loose bloody stool. Still on multiple pressors, Bilateral swollen and generalized anascara. Monitor H/H and transfuse as needed. Monitor K level. Discussed with family at bedside yesterday. 07/17: Continue supportive care, transfusion blood possible in am with HD, continue abx, very poor prognosis, blood pressure still labile. Discussed with nurse at bedside 07/18: CTA abdomen/pelvis completed, antibiotics changed to Zosyn per infectious disease, remains on mechanical ventilation 450/25/12/0.55 continue amiodarone drip for 24 more hours, blood culture grew Enterococcus. Remains sedated on propofol and fentanyl. Not on vasopressor support today 07/19: No acute events reported overnight, remains sedated with fentanyl and propofol and off vasopressor therapy today. 07/20: s/p debridement with surgery today, remains on fentanyl, propofol, Levophed and current vent settings 450/25/10/0.45. Patient will be transferred to a bariatric bed once available. 07/21: Continue current management, wean ventilator as tolerated, IV antibiotics deescalated to ampicillin. Per infectious disease no need to exchange/remove lines unless repeat blood cultures turn positive. The time my examination patient was sedated on fentanyl and propofol and remains off vasopressor support. 07/22: At the time my examination patient is sedated on fentanyl and propofol and remains off vasopressor support, repeat COVID-19 PCR negative. Patient remains on ampicillin. H/H remained stable and GI has signed off. Mechanical ventilation weaning as tolerated. 07/23. He remains sedated on fentanyl and propofol. On mechanical ventilation. On levophed. repeat COVID-19 PCR negative. Patient remains on ampicillin. H/H remained stable and GI has signed off. 07/24. He remains sedated and on mechanical ventilation. On levophed. repeat COVID-19 PCR negative. On ampicillin. ID recs appreciated. Labs reviewed 07/25: Patient remains sedated on fentanyl and Diprivan and remains on mechanical ventilation. Repeat CXR and still has leukocytosis. Patient is n.p.o. for trach and PEG with surgery. 07/26: Remains sedated on fentanyl and propofol. Remains on vasopressor support with Levophed. Current vent settings CMV 450/20/8/0.40. Patient is scheduled for PEG/trach with surgery. No acute events reported overnight. 07/27: Debridement with surgery to sacrum:, Activity restarted, remains sedated on propofol/fentanyl and Precedex support with Levophed. Current vent settings CMV 450/20/8/135. S/p trach/PEG with surgery 07/26. Patient remains afebrile how ever leukocytosis slightly worse today and he is still on his ampicillin. Patient was hypoglycemic overnight. 07/28: Patient remains sedated on propofol and fentanyl. Continue amiodarone drip for rate control. Patient be started on pressors of Levophed last evening. Patient currently with PSV/CPAP FiO2 35% PEEP of 8 and pressure support of 20. Wean mechanical ventilation as tolerated, VAP bundle. Continue hemodialysis per nephrology recommendations. Continue antibiotics per ID recommendations. Hold systemic anticoagulation in the setting of severe anemia. Patient with status post debridement on 07/27. 07/29: Continue sedation per pulmonary. Amiodarone drip for rate control. Continue vasopressors to maintain MAP > 65. Mechanical ventilation currently AC mode rate of 20 tidal volume 450, FiO2 35% and PEEP of 8. Wean mechanical ventilation as tolerated, VAP bundle. Continue hemodialysis per nephrology recommendations. Continue antibiotics per ID recommendations. Hold systemic anticoagulation in the setting of severe anemia. The high probability of a clinically significant, sudden or life threatening deterioration of the [cardiac, respiratory and neurological] system(s) required my full and direct attention, intervention and personal management. The aggregate critical care time was [31] minutes. This time is in addition to time spent performing reported procedures but includes the following: [x] Data Review and interpretation [x] Patient assessment and monitoring of vital signs [x] Documentation [x] Medication orders and management History Interval history: No new issues overnight. Hospitalist Physical - Constitutional Vitals: Temp Pulse Resp BP Pulse Ox 97.8 F 134 H 21 115/64 94 07/29/20 09:45 07/29/20 10:30 07/29/20 10:30 07/29/20 10:30 07/29/20 10:30 General appearance: Present: no acute distress, well-nourished, other (Patient remains on mechanical ventilation) - EENT Eyes: Present: PERRL, EOM intact ENT: hearing intact, clear oral mucosa, dentition normal - Neck Neck: Present: supple, normal ROM - Respiratory Respiratory effort: normal Respiratory: bilateral: CTA - Cardiovascular Rhythm: regular Heart Sounds: Present: S1 & S2. Absent: gallop, rub - Extremities Extremities: no ischemia, No edema, Full ROM - Abdominal General gastrointestinal: soft, non-tender, non-distended, normal bowel sounds - Integumentary Integumentary: Present: clear, warm, dry - Neurologic Neurologic: CNII-XII intact, moves all extremities HEART Score - HEART Score Troponin: Troponin T < 0.010 ng/mL (0.00-0.029) 06/17/20 12:33 Results - Labs CBC & Chem 7: 07/29/20 04:39 07/29/20 04:39 Labs: Laboratory Last Values WBC 38.6 K/mm3 (4.5-11.0) H 07/29/20 04:39 RBC 2.15 M/mm3 (3.65-5.03) L 07/29/20 04:39 Hgb 6.6 gm/dl (11.8-15.2) L 07/29/20 04:39 Hct 19.9 % (35.5-45.6) L* 07/29/20 04:39 MCV 93 fl (84-94) 07/29/20 04:39 MCH 31 pg (28-32) 07/29/20 04:39 MCHC 33 % (32-34) 07/29/20 04:39 RDW 17.5 % (13.2-15.2) H 07/29/20 04:39 Plt Count 187 K/mm3 (140-440) 07/29/20 04:39 Lymph % (Auto) 3.2 % (13.4-35.0) L 07/29/20 04:39 [place] % (Auto) 7.0 % (0.0-7.3) 07/29/20 04:39 Eos % (Auto) 2.1 % (0.0-4.3) 07/29/20 04:39 Baso % (Auto) 1.2 % (0.0-1.8) 07/29/20 04:39 Lymph # (Auto) 1.2 K/mm3 (1.2-5.4) 07/29/20 04:39 [place] # (Auto) 2.7 K/mm3 (0.0-0.8) H 07/29/20 04:39 Eos # (Auto) 0.8 K/mm3 (0.0-0.4) H 07/29/20 04:39 Baso # (Auto) 0.4 K/mm3 (0.0-0.1) H 07/29/20 04:39 Add Manual Diff Complete 07/27/20 04:00 Total Counted 100 07/27/20 04:00 Seg Neutrophils % 86.5 % (40.0-70.0) H 07/29/20 04:39 Seg Neuts % (Manual) 85.0 % (40.0-70.0) H 07/27/20 04:00 Band Neutrophils % 1.0 % 07/26/20 Unknown Lymphocytes % (Manual) 4.0 % (13.4-35.0) L 07/27/20 04:00 Reactive Lymphs % (Man) 1.0 % 06/23/20 04:00 Monocytes % (Manual) 6.0 % (0.0-7.3) 07/27/20 04:00 Eosinophils % (Manual) 4.0 % (0.0-4.3) 07/27/20 04:00 Basophils % (Manual) 1.0 % (0.0-1.8) 07/27/20 04:00 Metamyelocytes % 1.0 % 07/26/20 Unknown Myelocytes % 1.0 % 07/25/20 05:39 Promyelocytes % 0 % 07/17/20 15:25 Nucleated RBC % Not Reportable 07/27/20 04:00 Seg Neutrophils # 33.4 K/mm3 (1.8-7.7) H 07/29/20 04:39 Seg Neutrophils # Man 23.0 K/mm3 (1.8-7.7) H 07/27/20 04:00 Band Neutrophils # 0.0 K/mm3 07/27/20 04:00 Lymphocytes # (Manual) 1.1 K/mm3 (1.2-5.4) L 07/27/20 04:00 Abs React Lymphs (Man) 0.0 K/mm3 07/27/20 04:00 Monocytes # (Manual) 1.6 K/mm3 (0.0-0.8) H 07/27/20 04:00 Eosinophils # (Manual) 1.1 K/mm3 (0.0-0.4) H 07/27/20 04:00 Basophils # (Manual) 0.3 K/mm3 (0.0-0.1) H 07/27/20 04:00 Metamyelocytes # 0.0 K/mm3 07/27/20 04:00 Myelocytes # 0.0 K/mm3 07/27/20 04:00 Promyelocytes # 0.0 K/mm3 07/27/20 04:00 Blast Cells # 0.0 K/mm3 07/27/20 04:00 Pathologist Review 07/17/20 15:25 WBC Morphology Not Reportable 07/27/20 04:00 Hypersegmented Neuts Not Reportable 07/27/20 04:00 Hyposegmented Neuts Not Reportable 07/27/20 04:00 Hypogranular Neuts Not Reportable 07/27/20 04:00 Smudge Cells Not Reportable 07/27/20 04:00 Toxic Granulation Not Reportable 07/27/20 04:00 Toxic Vacuolation Not Reportable 07/27/20 04:00 Dohle Bodies Not Reportable 07/27/20 04:00 Pelger-Huet Anomaly Not Reportable 07/27/20 04:00 Carlito Rods Not Reportable 07/27/20 04:00 Platelet Estimate Consistent w auto 07/27/20 04:00 Clumped Platelets Not Reportable 07/27/20 04:00 Plt Clumps, EDTA Not Reportable 07/27/20 04:00 Large Platelets Not Reportable 07/27/20 04:00 Giant Platelets Not Reportable 07/27/20 04:00 Platelet Satelliting Not Reportable 07/27/20 04:00 Plt Morphology Comment Not Reportable 07/27/20 04:00 RBC Morphology Not Reportable 07/27/20 04:00 Dimorphic RBCs Not Reportable 07/27/20 04:00 Polychromasia Not Reportable 07/27/20 04:00 Hypochromasia 1+ 07/27/20 04:00 Poikilocytosis Not Reportable 07/27/20 04:00 Anisocytosis Not Reportable 07/27/20 04:00 Microcytosis Not Reportable 07/27/20 04:00 Macrocytosis Not Reportable 07/27/20 04:00 Spherocytes Not Reportable 07/27/20 04:00 Pappenheimer Bodies Not Reportable 07/27/20 04:00 Sickle Cells Not Reportable 07/27/20 04:00 Target Cells Not Reportable 07/27/20 04:00 Tear Drop Cells Not Reportable 07/27/20 04:00 Ovalocytes Not Reportable 07/27/20 04:00 Stomatocytes Few 07/27/20 04:00 Helmet Cells Not Reportable 07/27/20 04:00 [place] Bodies Not Reportable 07/27/20 04:00 [place] Rings Not Reportable 07/27/20 04:00 Livier Cells Not Reportable 07/27/20 04:00 Bite Cells Not Reportable 07/27/20 04:00 Crenated Cell Not Reportable 07/27/20 04:00 Elliptocytes Not Reportable 07/27/20 04:00 Acanthocytes (Spur) Not Reportable 07/27/20 04:00 Rouleaux Not Reportable 07/27/20 04:00 Hemoglobin C Crystals Not Reportable 07/27/20 04:00 Schistocytes Not Reportable 07/27/20 04:00 Malaria parasites Not Reportable 07/27/20 04:00 Victoriano Bodies Not Reportable 07/27/20 04:00 Hem Pathologist Commnt No 07/27/20 04:00 PT 15.3 Sec. (12.2-14.9) H 07/24/20 20:40 INR 1.21 (0.87-1.13) H 07/24/20 20:40 APTT 36.1 Sec. (24.2-36.6) 07/24/20 20:40 Fibrinogen 419 mg/dl (211-480) 07/15/20 08:21 D-Dimer 6608.00 ng/mlDDU (0-234) H 07/03/20 14:50 Heparin Anti-Xa Level < 0.10 U.I./ml (0.3-0.7) L 06/26/20 01:30 ABG pH 7.333 pH Units (7.350-7.450) L 07/28/20 14:31 POC ABG pCO2 46.9 mmHg (32.0-48.0) 07/23/20 04:56 ABG pCO2 44.4 mm Hg 07/28/20 14:31 POC ABG pO2 75.7 mmHg (83-108) L 07/23/20 04:56 ABG pO2 68.0 mm Hg (80.0-90.0) L 07/28/20 14:31 POC ABG HCO3 25.6 07/23/20 04:56 ABG HCO3 23.1 mmol/L (20.0-26.0) 07/28/20 14:31 ABG O2 Saturation 92.4 % (95.0-99.0) L 07/28/20 14:31 ABG O2 Content 11.4 (0.0-44) 07/28/20 14:31 POC ABG Base Excess -0.1 07/23/20 04:56 ABG Base Excess -2.7 mmol/L (-2.0-3.0) L 07/28/20 14:31 ABG Hemoglobin 9.0 gm/dl (14.0-18.0) L 07/28/20 14:31 ABG Oxyhemoglobin 91.7 (94-98) L 07/22/20 04:11 ABG Carboxyhemoglobin 2.2 % (0.0-5.0) 07/28/20 14:31 ABG Methemoglobin 0.6 % (0.0-1.5) 07/28/20 14:31 ABG Sodium 139.7 mmol/L (136.0-145.0) 07/23/20 04:56 ABG Potassium 3.1 mmol/L (3.40-4.50) L 07/23/20 04:56 ABG Chloride 108.0 mmol/L (98-107) H 07/23/20 04:56 ABG Glucose 101 mg/dL (65-95) H 07/23/20 04:56 Oxyhemoglobin 89.9 % (95.0-99.0) L 07/28/20 14:31 Carboxyhemoglobin 1.3 (0.5-1.5) 07/22/20 04:11 FiO2 35 % 07/28/20 14:31 FiO2 % 40 07/23/20 04:56 Sodium 135 mmol/L (137-145) L 07/29/20 04:39 Potassium 3.1 mmol/L (3.6-5.0) L 07/29/20 04:39 Chloride 98.5 mmol/L (98-107) 07/29/20 04:39 Carbon Dioxide 23 mmol/L (22-30) 07/29/20 04:39 Anion Gap 17 mmol/L 07/29/20 04:39 BUN 42 mg/dL (9-20) H 07/29/20 04:39 Creatinine 2.5 mg/dL (0.8-1.3) H 07/29/20 04:39 Estimated GFR 32 ml/min 07/29/20 04:39 BUN/Creatinine Ratio 17 % 07/29/20 04:39 Glucose 109 mg/dL (75-100) H 07/29/20 04:39 POC Glucose 113 mg/dL (70-105) H 07/28/20 23:33 Lactic Acid 0.90 mmol/L (0.7-2.0) 07/23/20 Unknown Calcium 7.5 mg/dL (8.4-10.2) L 07/29/20 04:39 Phosphorus 9.40 mg/dL (2.5-4.5) H 06/30/20 03:50 Magnesium 2.70 mg/dL (1.7-2.3) H 06/18/20 20:33 Ferritin 1171.0 ng/mL (30.0-300.0) H 07/03/20 14:50 Total Bilirubin 0.20 mg/dL (0.1-1.2) 07/24/20 06:40 Direct Bilirubin 0.5 mg/dL (0-0.2) H 07/05/20 08:21 Indirect Bilirubin 0.1 mg/dL 07/05/20 08:21 AST 46 units/L (5-40) H 07/24/20 06:40 ALT 74 units/L (7-56) H 07/24/20 06:40 Alkaline Phosphatase 180 units/L (35-129) H 07/24/20 06:40 Lactate Dehydrogenase 525 units/L (91-180) H 07/03/20 14:50 Total Creatine Kinase 618 units/L (55-170) H 06/29/20 Unknown Troponin T < 0.010 ng/mL (0.00-0.029) 06/17/20 12:33 C-Reactive Protein 31.50 mg/dL (0.00-1.30) H 07/03/20 14:50 Total Protein 4.6 g/dL (6.3-8.2) L 07/24/20 06:40 Albumin 2.0 g/dL (3.9-5) L 07/24/20 06:40 Albumin/Globulin Ratio 0.8 % 07/24/20 06:40 Triglycerides 166 mg/dL (2-149) H 07/26/20 08:46 Procalcitonin 6.05 ng/mL (<0.15) 07/13/20 06:59 Arterial Blood Glucose 101 mg/dL (65-95) H 07/23/20 04:56 Arterial Blood Ionized Calcium 5.3 mg/dL (4.6-5.3) 07/23/20 04:56 Urine Color Yellow (Yellow) 06/17/20 15:57 Urine Turbidity Clear (Clear) 06/17/20 15:57 Urine pH 6.0 (5.0-7.0) 06/17/20 15:57 Ur Specific [place] 1.019 (1.003-1.030) 06/17/20 15:57 Urine Protein 30 mg/dl mg/dL (Negative) 06/17/20 15:57 Urine Glucose (UA) Neg mg/dL (Negative) 06/17/20 15:57 Urine Ketones Neg mg/dL (Negative) 06/17/20 15:57 Urine Blood Sm (Negative) 06/17/20 15:57 Urine Nitrite Neg (Negative) 06/17/20 15:57 Ur Reducing Substances Not Reportable 06/17/20 15:57 Urine Bilirubin Neg (Negative) 06/17/20 15:57 Urine Ictotest Not Reportable 06/17/20 15:57 Urine Urobilinogen < 2.0 mg/dL (<2.0) 06/17/20 15:57 Ur Leukocyte Esterase Neg (Negative) 06/17/20 15:57 Urine WBC (Auto) 1.0 /HPF (0.0-6.0) 06/17/20 15:57 Urine RBC (Auto) 2.0 /HPF (0.0-6.0) 06/17/20 15:57 Urine Mucus Few /HPF 06/17/20 15:57 Urine Creatinine 192.4 mg/dL (0.1-20.0) H 06/18/20 15:00 Urine Sodium 28 mmol/L 06/18/20 15:00 Urine Chloride 31.1 mmolL (110-250) L 06/18/20 15:00 Nasal Screen MRSA (PCR) Negative (Negative) 06/19/20 10:38 Vancomycin Trough 22.7 ug/mL (5.0-20.0) H 06/20/20 08:25 Random Vancomycin 13.5 ug/mL (0-40.0) 07/16/20 07:17 Coronavirus (PCR) Negative (Negative) 07/22/20 Unknown Hepatitis A IgM Ab Non-reactive (NonReactive) 06/22/20 17:00 Hep Bs Antigen Non-reactive (Negative) 06/22/20 17:00 Hep B Core IgM Ab Non-reactive (NonReactive) 06/22/20 17:00 Hepatitis C Antibody Non-reactive (NonReactive) 06/22/20 17:00 SARS-CoV-2 IgG Ab Nonreactive (NonReactive) 07/04/20 05:20 Blood Type A POSITIVE 07/27/20 22:36 Antibody Screen Negative 07/27/20 22:36 Crossmatch See Detail 07/27/20 22:36 - Diagnostic Impressions Diagnostic Impressions: Echocardiogram 06/29/20 06:00 Transthoracic Echocardiogram Indication: A-fib BP: 105/47 HR: 99 Conclusions *The study is technically very difficult and limited due to poor acoustic windows. *Global left ventricular wall motion and contractility are within normal limits. *The estimated ejection fraction is 55-60%. *There is no pericardial effusion. Findings Procedure Info: The study quality is technically difficult. The study is technically limited due to poor acoustic windows. Left Ventricle: Global left ventricular wall motion and contractility are within normal limits. Global left ventricular systolic function is normal. The estimated ejection fraction is 55-60%. Left Atrium: The left atrium is not well visualized. Right Ventricle: The right ventricle is not well visualized. Right Atrium: The right atrium is not well visualized. Aortic Valve: The aortic valve is not well visualized. Mitral Valve: The mitral valve is not well visualized. Tricuspid Valve: The tricuspid valve is not well visualized. Pulmonic Valve: The pulmonic valve is not well visualized. Pericardium: There is no pericardial effusion. Venous: There is no change in the dimension of the inferior vena cava with respiration consistent with markedly increased right atrial pressure. [place]ell/IV: Voiding Method Incontinent Active Medications - Current Medications Current Medications: Generic Name Dose Route Start Last Admin Trade Name Freq PRN Reason Stop Dose Admin Acetaminophen 650 mg 06/17/20 14:17 07/03/20 09:16 Acetaminophen 325 Mg Tab PO 650 mg Q4H PRN Administration Pain MILD(1-3)/Fever >100.5/ROBERTS Albuterol 2.5 mg 07/19/20 12:15 Albuterol 2.5 Mg/3 Ml Nebu IH Q6HRT PRN Shortness Of Breath Alteplase, Recombinant 2 mg 07/27/20 18:40 Alteplase 2 Mg Inj IV PAM PRN LINE FLUSH Amiodarone HCl 200 mg 07/19/20 14:00 07/29/20 10:03 Amiodarone 200 Mg Tab PO Not Given BID CONNOR Lipase/Protease/Amylase 1 each 06/19/20 12:15 Lipase 10,500/Protease 25,000/Amylase 43,750 (Units) Cap FEEDTUBE PRN PRN For Clogged Feeding Tube Ascorbic Acid 250 mg 06/17/20 22:00 07/29/20 10:03 Ascorbic Acid 250 Mg Tab PO 250 mg BID CONNOR Administration Cholecalciferol 1,000 unit 06/18/20 10:00 07/29/20 10:02 Cholecalciferol (Vit D3) 1000 Unit (25 Mcg) Tab PO 1,000 unit DAILY CONNOR Administration Dextrose 50 ml 07/26/20 22:00 07/27/20 06:42 Dextrose 50% In Water (25gm) 50 Ml Syringe IV 50 ml Q30MIN PRN Administration Hypoglycemia Protocol Docusate Sodium 100 mg 06/23/20 15:00 07/29/20 10:02 Docusate Sodium 100 Mg/10 Ml Oral Liqd FEEDTUBE 100 mg BID CONNOR Administration Fentanyl 50 mcg 06/18/20 01:02 07/27/20 16:59 Fentanyl 100 Mcg/2 Ml Inj IV 50 mcg Q10MIN PRN Administration ANALGESIA Heparin Sodium (Porcine) 5,000 unit 06/22/20 12:53 07/28/20 20:45 Heparin 10,000 Unit/1 Ml Vial IV 5,000 unit PAM PRN Administration hemodialysis Hydrophilic Ointment 1 applic 06/17/20 22:52 07/12/20 20:22 Lip Therapy Vaseline TP 1 applic Q2HR PRN Administration Dry Lips Propofol 1,000 mg in 100 mls @ 3.402 mls/hr 06/18/20 01:00 07/29/20 02:49 Diprivan 10 Mg/Ml IV 20 mcg/kg/min TITR CONNOR 13.608 mls/hr Titration Protocol 5 MCG/KG/MIN Fentanyl Citrate 2,000 mcg in 100 mls @ 8 mls/hr 06/18/20 02:00 07/29/20 08:07 Fentanyl Drip Premix IV 4 mcg/kg/hr TITR CONNOR 32 mls/hr Administration Protocol 1 MCG/KG/HR Norepinephrine 4 mg in 250 mls @ 7.5 mls/hr 07/08/20 02:06 07/29/20 06:47 Levophed Drip 4 Mg/Ns 250 Ml IV 14 mcg/min TITR CONNOR 52.5 mls/hr Administration Protocol 2 MCG/MIN Vasopressin 20 unit/ Sodium 101 mls @ 9.09 mls/hr 07/11/20 11:00 07/18/20 15:36 Chloride IV 0 units/min TITR CONNOR 0 mls/hr Titration Protocol 0.03 UNITS/MIN Ampicillin Sodium 2 gm in 100 mls @ 100 mls/hr 07/21/20 12:00 07/29/20 00:29 Ampicillin/Ns 2 Gm/100 Ml IV 08/01/20 12:59 100 mls/hr Q12H CONNOR Administration Protocol Amiodarone HCl 900 mg/ 500 mls @ 33.333 mls/hr 07/27/20 17:00 07/28/20 09:59 Dextrose IV 0.5 mg/min DIRECT CONNOR 16.667 mls/hr Administration Protocol 1 MG/MIN Sodium Chloride 100 mls @ 999 mls/hr 07/27/20 18:40 Nacl 0.9% IV PAM PRN Hypotension Insulin Human Regular 0 units 06/18/20 12:00 07/29/20 06:42 Insulin Regular, Human 100 Units/1 Ml SUB-Q Not Given Q6HR [facility] Protocol Multi-Ingred Cream/Lotion/Oil/Oint 1 applic 06/17/20 22:52 07/12/20 20:22 Mineral Oil/Petrolatum, White Ophth Oint 3.5 Gm OU 1 applic Q4HR PRN Administration Dry Eye(s) Ondansetron HCl 4 mg 06/17/20 14:17 Ondansetron 4 Mg/2 Ml Inj IV Q8H PRN Nausea And Vomiting Pantoprazole Sodium 40 mg 07/16/20 22:00 07/29/20 10:02 Pantoprazole 40 Mg Inj IV 40 mg BID CONNOR Administration Polyethylene Glycol 17 gm 06/23/20 15:00 07/29/20 10:02 Polyethylene Glycol 3350 17 Gm Powder PO 17 gm QDAY CONNOR Administration Quetiapine Fumarate 200 mg 06/28/20 13:00 07/29/20 10:02 Quetiapine 200 Mg Tab PO 200 mg BID CONNOR Administration Simple Syrup 15 ml 06/19/20 12:15 07/26/20 13:55 Simple Syrup 15 Ml FEEDTUBE 15 ml PRN PRN Administration Hypoglycemia Simple Syrup 30 ml 06/19/20 12:15 07/19/20 06:04 Simple Syrup 15 Ml FEEDTUBE 30 ml PRN PRN Administration Hypoglycemia Sodium Bicarbonate 325 mg 06/19/20 12:15 07/11/20 20:00 Sodium Bicarbonate 325 Mg Tab FEEDTUBE 325 mg PRN PRN Administration For Clogged Feeding Tube Sodium Chloride 10 ml 06/17/20 22:00 07/29/20 10:02 Sodium Chloride 0.9% 10 Ml Flush Syringe IV 10 ml BID CONNOR Administration Sodium Chloride 10 ml 06/17/20 14:17 Sodium Chloride 0.9% 10 Ml Flush Syringe IV PRN PRN LINE FLUSH Sodium Hypochlorite 1 applic 07/20/20 10:00 07/28/20 22:16 Sodium Hypochlorite, [place] 1/2 Strength (0.25%) 473 Ml Topical Soln TP 1 applicatio BID CONNOR Administration Zinc Sulfate 220 mg 06/17/20 22:00 07/29/20 10:02 Zinc Sulfate 220 Mg Cap PO 220 mg BID CONNOR Administration Nutrition/Malnutrition Assess - Dietary Evaluation Nutrition/Malnutrition Findings: Nutrition Notes Start: 06/18/20 10:28 Freq: Status: Active Protocol: Document 07/28/20 10:21 AL (Rec: 07/28/20 10:34 AL [id number]) Co-Sign 07/28/20 10:21 LP Nutrition Notes Initial or Follow up Reassessment Current Diagnosis Acute Kidney Injury,Sepsis, Respiratory Failure Other Pertinent Diagnosis Pneu, on HD. Current Diet Nepro 1.8 at 50 ml/hr Labs/Tests K 3.2 BUN 35 Cr 2.3 Pertinent Medications Levophed Propofol 10.2 ml/hr (269 kcal) Height 6 ft Weight 157.9 kg [place] Body Weight (kg) 80.90 BMI 47.2 Weight change and time frame 6.3% wt loss (10.6 kg). Pt on HD. Weight Status Morbidly Obese Subjective/Other Information F/U for trach/PEG placement and TF tolerance. Trach/PEG placed on 07/26. Pt tolerating TF at 50 ml/hr (goal rate). Percent of energy/protein needs met: 98%/60% Burn Absent Trauma Absent GI Symptoms Other Skin Integrity/Comment Unstageable Sacral Pressure Ulcer Current % PO Negligible Minimum of two criteria No physical signs of malnutrition #3 Nutrition Diagnosis Increased nutrient needs ( specify in comment below) Comments: Protein Diagnosis Progress(for reassessment Continues documentation) #1 Nutrition Diagnosis Inadequate oral intake Diagnosis Progress(for reassessment Continues documentation) Is patient on ventilator? Yes Is Patient Ambulatory and/or Out of Bed No REE-([place]-[facility] Jeor-confined to bed) 2904.456 Kcal/Kg value to use for calculation 14 Approximate Energy Requirements Using 2211 kcal/Kg Calculation Used for Recommendations Kcal/kg Additional Notes Protein: Up to 162 g (up to 2. 5 g/kg IBW) Fluids: 1,000 ml + output Nutrition Intervention Change Diet Order: TF Nutrition Support: Nepro 1.8 at 55 ml/hr Flush 250 ml q4h Kcal 2,376 Protein (gm) 107 Fluid (mL) 959 Add Supplement/Snack (indicate name/kcal Gee BID /protein ) Provides kCal: 190 Provides Protein (gm) 5 Goal #1 TF tolerance at new goal rate Goal #2 Meet energy and protein needs as best as possible via TF Goal #3 Wound healing. Anticipated Discharge Needs: Nepro 1.8 at 55 ml/hr Flush 250 ml q4h Follow-Up By: 08/01/20 Additional Comments F/U for TF tolerance & new TF goal rate
[2020-07-29] MEDS: AMIODARONE 900 MG in DEXTROSE 5% IN WATER 482 ML IV SCH (12:22)
--- NOTE | 2020-07-29 13:14 | Progress Note ---
Assessment and Plan Acute hypoxemic respiratory failure due to COVID-19 Severe COVID infection Severe Sepsis with shock Bilateral pneumonia Acute kidney injury (GIRISH) with acute tubular necrosis (ATN) Elevated liver enzymes Obesity - for 1 unit PRBC transfusion - continue daily SAT's & SBT's as tolerated - wean vasopressors for target MAP > 65 mmHg - continue HD/UF per nephrology prescription - continue care as below otherwise; - continue wound care per WCN / RN - continue on bariatric bed - continue to avoid supine position as much as possible - adjust ant-infective's per ID rec's (Ampicillin) - continue bid protonix - continue tube feeds at goal rate as tolerated - continue HD/UF per nephrology team for toxin and volume clearance - continue bowel regimen - Continue to wean supplemental oxygen for O2 sats >92% - Monitor blood pressure closely while optimizing sedation,wean vasopressor support for MAP > 65 mmHg - VAP bundle addressed, aspiration precautions HOB >40 - continue lung protective strategies, permissive hypercapnic acceptable. - continue bronchodilators with routine trach care and pulmonary hygiene per RT - wean per pulmonary driven protocols otherwise - accuchecks with glycemic control per SSI (While critically ill target blood glucose of 140-180 mg/dL; avoid hypoglycemia) - sedation prn for target RASS -1 to -2 - continue enteral nutritional support at goal rate as tolerated - on antibiotics per ID recommendations - follow clinically re: fevers / WBC - Monitor liver function test ,avoid hepatotoxic agents - azotemia per nephrology rec's - Avoid nephrotoxins, renally dose all medications, conservative fluid management - continue to avoid benzodiazepines, reduce the possibility of delirium, - prn analgesia per CPOT score - Maintenance of sleep-wake cycle, avoid delirium - Stress ulcer prophylaxis, Pantoprazole - PT/OT/ROM exercises - Mobility protocols for pressure ulcer prevention - CXR, ABG in am - CBC, CMP in am - Supportive transfusions to keep HgB >7g/dL - Monitor hemodynamics closely - continue other care per attending / other consultants COVID SPECIFIC INTERVENTIONS - s/p steroids: Dexamethasone - completed Remdesivir - monitor inflammatory markers prn - ferritin, D-dimer, CRP, LDH per facility protocol - continue anticoagulation per System Protocol based on d-dimer (on hold due to bleeding) - continue contact and airborne isolation CONDITION: CRITICAL PROGNOSIS: GUARDED CODE STATUS: FULL CODE The high probability of a clinically significant, sudden or life-threatening deterioration of the [respiratory, cardiovascular, hematologic & neurologic] system(s) required my full and direct attention, intervention and personal management. The aggregate critical care time was [32] minutes without overlap. Time includes spent on; [x] Data Review and interpretation [x] Patient assessment and monitoring of vital signs [x] Documentation [x] Medication orders and management He was evaluated in the context of the global COVID-19 pandemic, which necessitated consideration that the patient might be at risk for infection with the virus that causes COVID-19. Institutional protocols and algorithms that pertain to the evaluation of patients at risk for COVID-19 are in a state of rapid change based on information released by regulatory bodies including the CDC and federal and state organizations. These policies and algorithms were followed during the patient's care in the ICU Please note that these policies, procedures and recommendations changed on a rapid basis. Subjective Date of service: 07/29/20 Principal diagnosis: ARF; Septic Shock; COVID-19 PNA; Atrial fibrillation; Obesity Interval history: Patient is seen today for: Ac hypoxemic respiratory failure; COVID-19; Severe Sepsis with shock; Zackery. pneumonia; GIRISH; Elevated liver enzymes; Obesity Seen and examined at bedside; 24hour events reviewed; nursing and respiratory care staff consulted; no adverse overnight events reported to me; resting in bed; remains on MVS; on SBT and tolerating well; back on vasopressors; to receive 1 unit of PRBC for serum Hb of 6.6 Objective Vital Signs - 12hr 07/29/20 07/29/20 07/29/20 01:30 02:00 02:30 Temperature Pulse Rate 111 H 110 H 116 H Pulse Rate [ From Monitor] Respiratory 20 18 15 Rate Blood Pressure 145/77 134/73 140/75 O2 Sat by Pulse 96 96 97 Oximetry O2 Sat by Pulse Oximetry [ Anterior Bilateral Throughout] O2 Sat by Pulse 100 Oximetry [ Assessment] 07/29/20 07/29/20 07/29/20 03:01 03:30 04:00 Temperature 97.6 F Pulse Rate 125 H 124 H 120 H Pulse Rate [ 120 H From Monitor] Respiratory 14 11 L 21 Rate Blood Pressure 114/60 125/71 123/68 O2 Sat by Pulse 97 97 97 Oximetry O2 Sat by Pulse Oximetry [ Anterior Bilateral Throughout] O2 Sat by Pulse Oximetry [ Assessment] 07/29/20 07/29/20 07/29/20 04:30 05:00 05:29 Temperature Pulse Rate 123 H 129 H Pulse Rate [ From Monitor] Respiratory 19 Rate Blood Pressure 130/69 135/72 125/67 O2 Sat by Pulse 96 93 94 Oximetry O2 Sat by Pulse Oximetry [ Anterior Bilateral Throughout] O2 Sat by Pulse Oximetry [ Assessment] 07/29/20 07/29/20 07/29/20 05:30 06:00 06:30 Temperature Pulse Rate 124 H 130 H 126 H Pulse Rate [ From Monitor] Respiratory 22 18 21 Rate Blood Pressure 130/68 130/61 138/79 O2 Sat by Pulse 95 95 95 Oximetry O2 Sat by Pulse Oximetry [ Anterior Bilateral Throughout] O2 Sat by Pulse Oximetry [ Assessment] 07/29/20 07/29/20 07/29/20 07:00 07:30 07:45 Temperature 97.8 F Pulse Rate 123 H 124 H 127 H Pulse Rate [ From Monitor] Respiratory 20 25 H 16 Rate Blood Pressure 121/71 116/66 125/72 O2 Sat by Pulse 94 95 Oximetry O2 Sat by Pulse Oximetry [ Anterior Bilateral Throughout] O2 Sat by Pulse Oximetry [ Assessment] 07/29/20 07/29/20 07/29/20 08:00 08:15 08:30 Temperature 97.8 F Pulse Rate 129 H 125 H 129 H Pulse Rate [ 129 H From Monitor] Respiratory 21 20 Rate Blood Pressure 110/67 118/70 102/61 O2 Sat by Pulse 93 92 Oximetry O2 Sat by Pulse Oximetry [ Anterior Bilateral Throughout] O2 Sat by Pulse Oximetry [ Assessment] 07/29/20 07/29/20 07/29/20 08:45 09:00 09:10 Temperature 97.8 F Pulse Rate 130 H 137 H 133 H Pulse Rate [ From Monitor] Respiratory 18 23 Rate Blood Pressure 103/59 90/51 105/66 O2 Sat by Pulse 89 92 Oximetry O2 Sat by Pulse Oximetry [ Anterior Bilateral Throughout] O2 Sat by Pulse Oximetry [ Assessment] 07/29/20 07/29/20 07/29/20 09:14 09:15 09:21 Temperature 97.8 F Pulse Rate 133 H 137 H 137 H Pulse Rate [ From Monitor] Respiratory 21 Rate Blood Pressure 120/68 120/68 105/66 O2 Sat by Pulse 95 94 Oximetry O2 Sat by Pulse Oximetry [ Anterior Bilateral Throughout] O2 Sat by Pulse Oximetry [ Assessment] 07/29/20 07/29/20 07/29/20 09:29 09:30 09:45 Temperature 97.8 F 97.8 F Pulse Rate 133 H 129 H 136 H Pulse Rate [ From Monitor] Respiratory 20 23 24 Rate Blood Pressure 114/68 114/68 123/70 O2 Sat by Pulse 96 95 95 Oximetry O2 Sat by Pulse Oximetry [ Anterior Bilateral Throughout] O2 Sat by Pulse Oximetry [ Assessment] 07/29/20 07/29/20 07/29/20 10:00 10:15 10:30 Temperature Pulse Rate 139 H 122 H 134 H Pulse Rate [ From Monitor] Respiratory 19 21 Rate Blood Pressure 111/66 112/57 115/64 O2 Sat by Pulse 94 94 Oximetry O2 Sat by Pulse Oximetry [ Anterior Bilateral Throughout] O2 Sat by Pulse Oximetry [ Assessment] 07/29/20 07/29/20 07/29/20 10:45 11:00 11:15 Temperature Pulse Rate 125 H 126 H 135 H Pulse Rate [ From Monitor] Respiratory 15 Rate Blood Pressure 121/70 118/71 116/64 O2 Sat by Pulse 94 Oximetry O2 Sat by Pulse Oximetry [ Anterior Bilateral Throughout] O2 Sat by Pulse Oximetry [ Assessment] 07/29/20 07/29/20 07/29/20 11:30 11:46 11:50 Temperature 97.8 F Pulse Rate 138 H 120 H 119 H Pulse Rate [ From Monitor] Respiratory 30 H 33 H Rate Blood Pressure 130/74 126/61 126/61 O2 Sat by Pulse 92 93 Oximetry O2 Sat by Pulse 95 Oximetry [ Anterior Bilateral Throughout] O2 Sat by Pulse Oximetry [ Assessment] 07/29/20 07/29/20 07/29/20 12:00 12:01 12:30 Temperature 98.7 F Pulse Rate 140 H 131 H 133 H Pulse Rate [ 133 H From Monitor] Respiratory 21 20 Rate Blood Pressure 130/74 123/63 O2 Sat by Pulse 97 77 L 95 Oximetry O2 Sat by Pulse Oximetry [ Anterior Bilateral Throughout] O2 Sat by Pulse Oximetry [ Assessment] 07/29/20 07/29/20 12:56 13:00 Temperature Pulse Rate 133 H 133 H Pulse Rate [ From Monitor] Respiratory 20 Rate Blood Pressure 111/61 111/61 O2 Sat by Pulse 95 95 Oximetry O2 Sat by Pulse Oximetry [ Anterior Bilateral Throughout] O2 Sat by Pulse Oximetry [ Assessment] Constitutional: appears uncomfortable, other (morbidly obese, atraumatic, normocephalic, mild resp distress, orally intubated) Eyes: non-icteric ENT: oropharynx moist, other (s/p tracheostomy) Neck: supple, no lymphadenopathy, other (Large , short neck) Effort: mildly labored Ascultation: Bilateral: diminished breath sounds, rales Percussion: Bilateral: not dull Cardiovascular: irregular rhythm, other (S1,S2) Gastrointestinal: normoactive bowel sounds, soft, non-tender, non-distended (protuberant) Integumentary: rash, other (Femoral CVC, Newell catheter) Extremities: pink and warm, pulses normal, no ischemia or petechiae, edema (trace to 1+) Neurologic: non-focal exam (grossly), pupils equal and round, CN II-XII normal, other (unable to assess, sedated) Psychiatric: other (unable to assess, sedated) CBC and BMP: 07/29/20 04:39 07/29/20 04:39 ABG, PT/INR, D-dimer: ABG ABG pH 7.333 pH Units (7.350-7.450) L 07/28/20 14:31 POC ABG pCO2 46.9 mmHg (32.0-48.0) 07/23/20 04:56 ABG pCO2 44.4 mm Hg 07/28/20 14:31 POC ABG pO2 75.7 mmHg (83-108) L 07/23/20 04:56 ABG pO2 68.0 mm Hg (80.0-90.0) L 07/28/20 14:31 POC ABG HCO3 25.6 07/23/20 04:56 ABG O2 Saturation 92.4 % (95.0-99.0) L 07/28/20 14:31 PT/INR, D-dimer PT 15.3 Sec. (12.2-14.9) H 07/24/20 20:40 INR 1.21 (0.87-1.13) H 07/24/20 20:40 D-Dimer 6608.00 ng/mlDDU (0-234) H 07/03/20 14:50 Abnormal lab findings: Abnormal Labs 06/17/20 06/17/20 06/17/20 12:33 12:33 12:33 WBC 19.5 H RBC 5.18 H Hgb 15.5 H Hct MCHC RDW Plt Count Lymph % (Auto) 3.8 L [place] % (Auto) Lymph # (Auto) 0.7 L [place] # (Auto) Eos # (Auto) Baso # (Auto) Seg Neutrophils % Seg Neuts % (Manual) 99.0 H Lymphocytes % (Manual) 1.0 L Monocytes % (Manual) Basophils % (Manual) Nucleated RBC % Seg Neutrophils # 18.2 H Seg Neutrophils # Man 19.3 H Lymphocytes # (Manual) 0.2 L Monocytes # (Manual) Eosinophils # (Manual) Basophils # (Manual) PT 16.5 H INR 1.33 H APTT D-Dimer 1025.04 H Heparin Anti-Xa Level ABG pH POC ABG pCO2 POC ABG pO2 ABG pO2 ABG HCO3 ABG O2 Saturation ABG Base Excess ABG Hemoglobin ABG Oxyhemoglobin ABG Sodium ABG Potassium ABG Chloride ABG Glucose Oxyhemoglobin Carboxyhemoglobin Sodium 130 L Potassium 3.4 L Chloride 95.0 L Carbon Dioxide BUN 21 H Creatinine Glucose 137 H POC Glucose Lactic Acid Calcium 7.9 L Phosphorus Magnesium Ferritin Direct Bilirubin AST 84 H ALT 67 H Alkaline Phosphatase Lactate Dehydrogenase 437 H Total Creatine Kinase 310 H C-Reactive Protein 27.90 H Total Protein Albumin 2.9 L Triglycerides Arterial Blood Glucose Arterial Blood Ionized Calcium Urine Creatinine Urine Chloride Vancomycin Trough Coronavirus (PCR) Crossmatch 06/17/20 06/17/20 06/17/20 12:33 12:33 14:48 WBC RBC Hgb Hct MCHC RDW Plt Count Lymph % (Auto) [place] % (Auto) Lymph # (Auto) [place] # (Auto) Eos # (Auto) Baso # (Auto) Seg Neutrophils % Seg Neuts % (Manual) Lymphocytes % (Manual) Monocytes % (Manual) Basophils % (Manual) Nucleated RBC % Seg Neutrophils # Seg Neutrophils # Man Lymphocytes # (Manual) Monocytes # (Manual) Eosinophils # (Manual) Basophils # (Manual) PT INR APTT D-Dimer Heparin Anti-Xa Level ABG pH POC ABG pCO2 POC ABG pO2 ABG pO2 ABG HCO3 ABG O2 Saturation ABG Base Excess ABG Hemoglobin ABG Oxyhemoglobin ABG Sodium ABG Potassium ABG Chloride ABG Glucose Oxyhemoglobin Carboxyhemoglobin Sodium Potassium Chloride Carbon Dioxide BUN Creatinine Glucose POC Glucose Lactic Acid 2.50 H* 2.20 H* Calcium Phosphorus Magnesium Ferritin 2297.0 H Direct Bilirubin AST ALT Alkaline Phosphatase Lactate Dehydrogenase Total Creatine Kinase C-Reactive Protein Total Protein Albumin Triglycerides Arterial Blood Glucose Arterial Blood Ionized Calcium Urine Creatinine Urine Chloride Vancomycin Trough Coronavirus (PCR) Crossmatch 06/17/20 06/17/20 06/17/20 14:48 14:48 14:48 WBC RBC Hgb Hct MCHC RDW Plt Count Lymph % (Auto) [place] % (Auto) Lymph # (Auto) [place] # (Auto) Eos # (Auto) Baso # (Auto) Seg Neutrophils % Seg Neuts % (Manual) Lymphocytes % (Manual) Monocytes % (Manual) Basophils % (Manual) Nucleated RBC % Seg Neutrophils # Seg Neutrophils # Man Lymphocytes # (Manual) Monocytes # (Manual) Eosinophils # (Manual) Basophils # (Manual) PT INR APTT D-Dimer 939.89 H Heparin Anti-Xa Level ABG pH POC ABG pCO2 POC ABG pO2 ABG pO2 ABG HCO3 ABG O2 Saturation ABG Base Excess ABG Hemoglobin ABG Oxyhemoglobin ABG Sodium ABG Potassium ABG Chloride ABG Glucose Oxyhemoglobin Carboxyhemoglobin Sodium Potassium Chloride Carbon Dioxide BUN Creatinine Glucose 141 H POC Glucose Lactic Acid Calcium Phosphorus Magnesium Ferritin > 2000.0 H Direct Bilirubin AST ALT Alkaline Phosphatase Lactate Dehydrogenase 503 H Total Creatine Kinase C-Reactive Protein 24.70 H Total Protein Albumin Triglycerides Arterial Blood Glucose Arterial Blood Ionized Calcium Urine Creatinine Urine Chloride Vancomycin Trough Coronavirus (PCR) Crossmatch 06/17/20 06/17/20 06/17/20 16:54 19:39 23:43 WBC RBC Hgb Hct MCHC RDW Plt Count Lymph % (Auto) [place] % (Auto) Lymph # (Auto) [place] # (Auto) Eos # (Auto) Baso # (Auto) Seg Neutrophils % Seg Neuts % (Manual) Lymphocytes % (Manual) Monocytes % (Manual) Basophils % (Manual) Nucleated RBC % Seg Neutrophils # Seg Neutrophils # Man Lymphocytes # (Manual) Monocytes # (Manual) Eosinophils # (Manual) Basophils # (Manual) PT INR APTT D-Dimer Heparin Anti-Xa Level ABG pH 7.571 H POC ABG pCO2 24.3 L POC ABG pO2 41.6 L ABG pO2 ABG HCO3 ABG O2 Saturation ABG Base Excess ABG Hemoglobin ABG Oxyhemoglobin 84.0 L ABG Sodium 131.0 L ABG Potassium ABG Chloride ABG Glucose 163 H Oxyhemoglobin Carboxyhemoglobin Sodium Potassium Chloride Carbon Dioxide BUN Creatinine Glucose POC Glucose 185 H Lactic Acid 2.10 H* Calcium Phosphorus Magnesium Ferritin Direct Bilirubin AST ALT Alkaline Phosphatase Lactate Dehydrogenase Total Creatine Kinase C-Reactive Protein Total Protein Albumin Triglycerides Arterial Blood Glucose 163 H Arterial Blood Ionized Calcium 4.4 L Urine Creatinine Urine Chloride Vancomycin Trough Coronavirus (PCR) Crossmatch 06/18/20 06/18/20 06/18/20 00:17 00:23 03:55 WBC RBC Hgb Hct MCHC RDW Plt Count Lymph % (Auto) [place] % (Auto) Lymph # (Auto) [place] # (Auto) Eos # (Auto) Baso # (Auto) Seg Neutrophils % Seg Neuts % (Manual) Lymphocytes % (Manual) Monocytes % (Manual) Basophils % (Manual) Nucleated RBC % Seg Neutrophils # Seg Neutrophils # Man Lymphocytes # (Manual) Monocytes # (Manual) Eosinophils # (Manual) Basophils # (Manual) PT INR APTT D-Dimer Heparin Anti-Xa Level ABG pH POC ABG pCO2 POC ABG pO2 56.5 L 48.3 L ABG pO2 ABG HCO3 ABG O2 Saturation ABG Base Excess ABG Hemoglobin ABG Oxyhemoglobin 86.3 L 81.7 L ABG Sodium 132.9 L 131.0 L ABG Potassium ABG Chloride ABG Glucose 189 H 161 H Oxyhemoglobin Carboxyhemoglobin 0.4 L Sodium Potassium Chloride Carbon Dioxide BUN Creatinine Glucose POC Glucose Lactic Acid 3.80 H* Calcium Phosphorus Magnesium Ferritin Direct Bilirubin AST ALT Alkaline Phosphatase Lactate Dehydrogenase Total Creatine Kinase C-Reactive Protein Total Protein Albumin Triglycerides Arterial Blood Glucose 189 H 161 H Arterial Blood Ionized Calcium 4.3 L 4.2 L Urine Creatinine Urine Chloride Vancomycin Trough Coronavirus (PCR) Crossmatch 06/18/20 06/18/20 06/18/20 05:39 05:39 05:39 WBC 26.2 H RBC Hgb Hct MCHC RDW Plt Count Lymph % (Auto) [place] % (Auto) Lymph # (Auto) [place] # (Auto) Eos # (Auto) Baso # (Auto) Seg Neutrophils % Seg Neuts % (Manual) 90.0 H Lymphocytes % (Manual) 5.0 L Monocytes % (Manual) Basophils % (Manual) Nucleated RBC % Seg Neutrophils # Seg Neutrophils # Man 23.6 H Lymphocytes # (Manual) Monocytes # (Manual) 1.3 H Eosinophils # (Manual) Basophils # (Manual) PT INR APTT D-Dimer Heparin Anti-Xa Level ABG pH POC ABG pCO2 POC ABG pO2 ABG pO2 ABG HCO3 ABG O2 Saturation ABG Base Excess ABG Hemoglobin ABG Oxyhemoglobin ABG Sodium ABG Potassium ABG Chloride ABG Glucose Oxyhemoglobin Carboxyhemoglobin Sodium 135 L Potassium Chloride 97.5 L Carbon Dioxide 21 L BUN 39 H Creatinine 1.7 H D Glucose 168 H POC Glucose Lactic Acid 3.40 H* Calcium 7.2 L Phosphorus Magnesium Ferritin Direct Bilirubin AST ALT Alkaline Phosphatase Lactate Dehydrogenase Total Creatine Kinase C-Reactive Protein Total Protein Albumin Triglycerides Arterial Blood Glucose Arterial Blood Ionized Calcium Urine Creatinine Urine Chloride Vancomycin Trough Coronavirus (PCR) Crossmatch 06/18/20 06/18/20 06/18/20 07:24 09:00 10:10 WBC RBC Hgb Hct MCHC RDW Plt Count Lymph % (Auto) [place] % (Auto) Lymph # (Auto) [place] # (Auto) Eos # (Auto) Baso # (Auto) Seg Neutrophils % Seg Neuts % (Manual) Lymphocytes % (Manual) Monocytes % (Manual) Basophils % (Manual) Nucleated RBC % Seg Neutrophils # Seg Neutrophils # Man Lymphocytes # (Manual) Monocytes # (Manual) Eosinophils # (Manual) Basophils # (Manual) PT INR APTT D-Dimer Heparin Anti-Xa Level ABG pH POC ABG pCO2 POC ABG pO2 ABG pO2 ABG HCO3 ABG O2 Saturation ABG Base Excess ABG Hemoglobin ABG Oxyhemoglobin ABG Sodium ABG Potassium ABG Chloride ABG Glucose Oxyhemoglobin Carboxyhemoglobin Sodium Potassium Chloride Carbon Dioxide BUN Creatinine Glucose POC Glucose Lactic Acid 2.90 H* 3.20 H* Calcium Phosphorus Magnesium Ferritin Direct Bilirubin AST ALT Alkaline Phosphatase Lactate Dehydrogenase Total Creatine Kinase C-Reactive Protein Total Protein Albumin Triglycerides Arterial Blood Glucose Arterial Blood Ionized Calcium Urine Creatinine Urine Chloride Vancomycin Trough Coronavirus (PCR) Positive A Crossmatch 06/18/20 06/18/20 06/18/20 11:58 14:43 15:00 WBC RBC Hgb Hct MCHC RDW Plt Count Lymph % (Auto) [place] % (Auto) Lymph # (Auto) [place] # (Auto) Eos # (Auto) Baso # (Auto) Seg Neutrophils % Seg Neuts % (Manual) Lymphocytes % (Manual) Monocytes % (Manual) Basophils % (Manual) Nucleated RBC % Seg Neutrophils # Seg Neutrophils # Man Lymphocytes # (Manual) Monocytes # (Manual) Eosinophils # (Manual) Basophils # (Manual) PT INR APTT D-Dimer Heparin Anti-Xa Level ABG pH 7.303 L POC ABG pCO2 POC ABG pO2 82.3 L ABG pO2 ABG HCO3 ABG O2 Saturation ABG Base Excess ABG Hemoglobin ABG Oxyhemoglobin ABG Sodium 135.3 L ABG Potassium ABG Chloride ABG Glucose 215 H Oxyhemoglobin Carboxyhemoglobin 0.3 L Sodium Potassium Chloride Carbon Dioxide BUN Creatinine Glucose POC Glucose 209 H Lactic Acid Calcium Phosphorus Magnesium Ferritin Direct Bilirubin AST ALT Alkaline Phosphatase Lactate Dehydrogenase Total Creatine Kinase C-Reactive Protein Total Protein Albumin Triglycerides Arterial Blood Glucose 215 H Arterial Blood Ionized Calcium 4.2 L Urine Creatinine 192.4 H Urine Chloride 31.1 L Vancomycin Trough Coronavirus (PCR) Crossmatch 06/18/20 06/18/20 06/18/20 17:16 19:44 20:33 WBC RBC Hgb Hct MCHC RDW Plt Count Lymph % (Auto) [place] % (Auto) Lymph # (Auto) [place] # (Auto) Eos # (Auto) Baso # (Auto) Seg Neutrophils % Seg Neuts % (Manual) Lymphocytes % (Manual) Monocytes % (Manual) Basophils % (Manual) Nucleated RBC % Seg Neutrophils # Seg Neutrophils # Man Lymphocytes # (Manual) Monocytes # (Manual) Eosinophils # (Manual) Basophils # (Manual) PT INR APTT D-Dimer Heparin Anti-Xa Level ABG pH POC ABG pCO2 POC ABG pO2 ABG pO2 ABG HCO3 ABG O2 Saturation ABG Base Excess ABG Hemoglobin ABG Oxyhemoglobin ABG Sodium ABG Potassium ABG Chloride ABG Glucose Oxyhemoglobin Carboxyhemoglobin Sodium Potassium Chloride Carbon Dioxide BUN Creatinine Glucose POC Glucose 182 H Lactic Acid 3.00 H* Calcium Phosphorus Magnesium 2.70 H Ferritin Direct Bilirubin AST ALT Alkaline Phosphatase Lactate Dehydrogenase Total Creatine Kinase C-Reactive Protein Total Protein Albumin Triglycerides Arterial Blood Glucose Arterial Blood Ionized Calcium Urine Creatinine Urine Chloride Vancomycin Trough Coronavirus (PCR) Crossmatch 06/18/20 06/19/20 06/19/20 23:43 04:00 04:00 WBC 31.6 H RBC Hgb Hct MCHC RDW Plt Count Lymph % (Auto) [place] % (Auto) Lymph # (Auto) [place] # (Auto) Eos # (Auto) Baso # (Auto) Seg Neutrophils % Seg Neuts % (Manual) 98.0 H Lymphocytes % (Manual) 0.5 L Monocytes % (Manual) Basophils % (Manual) Nucleated RBC % Seg Neutrophils # Seg Neutrophils # Man 31.0 H Lymphocytes # (Manual) 0.2 L Monocytes # (Manual) Eosinophils # (Manual) Basophils # (Manual) PT INR APTT D-Dimer Heparin Anti-Xa Level ABG pH POC ABG pCO2 POC ABG pO2 ABG pO2 ABG HCO3 ABG O2 Saturation ABG Base Excess ABG Hemoglobin ABG Oxyhemoglobin ABG Sodium ABG Potassium ABG Chloride ABG Glucose Oxyhemoglobin Carboxyhemoglobin Sodium Potassium Chloride Carbon Dioxide BUN 56 H Creatinine 1.6 H Glucose 176 H POC Glucose 149 H Lactic Acid Calcium 7.0 L Phosphorus Magnesium Ferritin Direct Bilirubin AST 244 H ALT 159 H Alkaline Phosphatase Lactate Dehydrogenase Total Creatine Kinase C-Reactive Protein Total Protein 4.9 L D Albumin 2.5 L Triglycerides Arterial Blood Glucose Arterial Blood Ionized Calcium Urine Creatinine Urine Chloride Vancomycin Trough Coronavirus (PCR) Crossmatch 06/19/20 06/19/20 06/19/20 04:00 05:44 11:42 WBC RBC Hgb Hct MCHC RDW Plt Count Lymph % (Auto) [place] % (Auto) Lymph # (Auto) [place] # (Auto) Eos # (Auto) Baso # (Auto) Seg Neutrophils % Seg Neuts % (Manual) Lymphocytes % (Manual) Monocytes % (Manual) Basophils % (Manual) Nucleated RBC % Seg Neutrophils # Seg Neutrophils # Man Lymphocytes # (Manual) Monocytes # (Manual) Eosinophils # (Manual) Basophils # (Manual) PT INR APTT D-Dimer Heparin Anti-Xa Level ABG pH 7.265 L POC ABG pCO2 51.8 H POC ABG pO2 65.1 L ABG pO2 ABG HCO3 ABG O2 Saturation ABG Base Excess ABG Hemoglobin ABG Oxyhemoglobin ABG Sodium ABG Potassium ABG Chloride ABG Glucose 184 H Oxyhemoglobin Carboxyhemoglobin Sodium Potassium Chloride Carbon Dioxide BUN Creatinine Glucose POC Glucose 156 H 191 H Lactic Acid Calcium Phosphorus Magnesium Ferritin Direct Bilirubin AST ALT Alkaline Phosphatase Lactate Dehydrogenase Total Creatine Kinase C-Reactive Protein Total Protein Albumin Triglycerides Arterial Blood Glucose 184 H Arterial Blood Ionized Calcium 4.3 L Urine Creatinine Urine Chloride Vancomycin Trough Coronavirus (PCR) Crossmatch 06/19/20 06/19/20 06/19/20 12:30 17:16 18:36 WBC RBC Hgb Hct MCHC RDW Plt Count Lymph % (Auto) [place] % (Auto) Lymph # (Auto) [place] # (Auto) Eos # (Auto) Baso # (Auto) Seg Neutrophils % Seg Neuts % (Manual) Lymphocytes % (Manual) Monocytes % (Manual) Basophils % (Manual) Nucleated RBC % Seg Neutrophils # Seg Neutrophils # Man Lymphocytes # (Manual) Monocytes # (Manual) Eosinophils # (Manual) Basophils # (Manual) PT 16.4 H INR 1.32 H APTT D-Dimer Heparin Anti-Xa Level ABG pH 7.088 L POC ABG pCO2 78.1 H POC ABG pO2 208.3 H ABG pO2 ABG HCO3 ABG O2 Saturation ABG Base Excess ABG Hemoglobin ABG Oxyhemoglobin 98.3 H ABG Sodium ABG Potassium 5.0 H ABG Chloride ABG Glucose 182 H Oxyhemoglobin Carboxyhemoglobin 0.4 L Sodium Potassium Chloride Carbon Dioxide BUN Creatinine Glucose POC Glucose 154 H Lactic Acid Calcium Phosphorus Magnesium Ferritin Direct Bilirubin AST ALT Alkaline Phosphatase Lactate Dehydrogenase Total Creatine Kinase C-Reactive Protein Total Protein Albumin Triglycerides Arterial Blood Glucose 182 H Arterial Blood Ionized Calcium 4.3 L Urine Creatinine Urine Chloride Vancomycin Trough Coronavirus (PCR) Crossmatch 06/19/20 06/20/20 06/20/20 23:32 03:00 05:19 WBC RBC Hgb Hct MCHC RDW Plt Count Lymph % (Auto) [place] % (Auto) Lymph # (Auto) [place] # (Auto) Eos # (Auto) Baso # (Auto) Seg Neutrophils % Seg Neuts % (Manual) Lymphocytes % (Manual) Monocytes % (Manual) Basophils % (Manual) Nucleated RBC % Seg Neutrophils # Seg Neutrophils # Man Lymphocytes # (Manual) Monocytes # (Manual) Eosinophils # (Manual) Basophils # (Manual) PT INR APTT D-Dimer Heparin Anti-Xa Level 0.77 H ABG pH POC ABG pCO2 POC ABG pO2 ABG pO2 ABG HCO3 ABG O2 Saturation ABG Base Excess ABG Hemoglobin ABG Oxyhemoglobin ABG Sodium ABG Potassium ABG Chloride ABG Glucose Oxyhemoglobin Carboxyhemoglobin Sodium Potassium Chloride Carbon Dioxide BUN Creatinine Glucose POC Glucose 201 H 190 H Lactic Acid Calcium Phosphorus Magnesium Ferritin Direct Bilirubin AST ALT Alkaline Phosphatase Lactate Dehydrogenase Total Creatine Kinase C-Reactive Protein Total Protein Albumin Triglycerides Arterial Blood Glucose Arterial Blood Ionized Calcium Urine Creatinine Urine Chloride Vancomycin Trough Coronavirus (PCR) Crossmatch 06/20/20 06/20/20 06/20/20 08:25 08:25 11:36 WBC RBC Hgb Hct MCHC RDW Plt Count Lymph % (Auto) [place] % (Auto) Lymph # (Auto) [place] # (Auto) Eos # (Auto) Baso # (Auto) Seg Neutrophils % Seg Neuts % (Manual) Lymphocytes % (Manual) Monocytes % (Manual) Basophils % (Manual) Nucleated RBC % Seg Neutrophils # Seg Neutrophils # Man Lymphocytes # (Manual) Monocytes # (Manual) Eosinophils # (Manual) Basophils # (Manual) PT INR APTT D-Dimer Heparin Anti-Xa Level ABG pH POC ABG pCO2 POC ABG pO2 ABG pO2 ABG HCO3 ABG O2 Saturation ABG Base Excess ABG Hemoglobin ABG Oxyhemoglobin ABG Sodium ABG Potassium ABG Chloride ABG Glucose Oxyhemoglobin Carboxyhemoglobin Sodium 135 L Potassium 5.4 H Chloride 109.2 H Carbon Dioxide 19 L BUN 68 H Creatinine 2.5 H D Glucose 201 H POC Glucose 184 H Lactic Acid Calcium 5.5 L* D Phosphorus Magnesium Ferritin Direct Bilirubin AST 123 H ALT 86 H Alkaline Phosphatase Lactate Dehydrogenase Total Creatine Kinase C-Reactive Protein Total Protein 4.6 L Albumin 1.5 L Triglycerides Arterial Blood Glucose Arterial Blood Ionized Calcium Urine Creatinine Urine Chloride Vancomycin Trough 22.7 H Coronavirus (PCR) Crossmatch 06/20/20 06/20/20 06/20/20 11:40 17:28 20:00 WBC RBC Hgb Hct MCHC RDW Plt Count Lymph % (Auto) [place] % (Auto) Lymph # (Auto) [place] # (Auto) Eos # (Auto) Baso # (Auto) Seg Neutrophils % Seg Neuts % (Manual) Lymphocytes % (Manual) Monocytes % (Manual) Basophils % (Manual) Nucleated RBC % Seg Neutrophils # Seg Neutrophils # Man Lymphocytes # (Manual) Monocytes # (Manual) Eosinophils # (Manual) Basophils # (Manual) PT INR APTT D-Dimer Heparin Anti-Xa Level 0.89 H ABG pH 7.099 L POC ABG pCO2 61.1 H POC ABG pO2 ABG pO2 ABG HCO3 ABG O2 Saturation ABG Base Excess ABG Hemoglobin ABG Oxyhemoglobin ABG Sodium ABG Potassium 5.0 H ABG Chloride 111.0 H ABG Glucose 200 H Oxyhemoglobin Carboxyhemoglobin 0.4 L Sodium Potassium Chloride Carbon Dioxide BUN Creatinine Glucose POC Glucose 165 H Lactic Acid Calcium Phosphorus Magnesium Ferritin Direct Bilirubin AST ALT Alkaline Phosphatase Lactate Dehydrogenase Total Creatine Kinase C-Reactive Protein Total Protein Albumin Triglycerides Arterial Blood Glucose 200 H Arterial Blood Ionized Calcium 4.2 L Urine Creatinine Urine Chloride Vancomycin Trough Coronavirus (PCR) Crossmatch 06/20/20 06/21/20 06/21/20 23:29 05:00 05:20 WBC RBC Hgb Hct MCHC RDW Plt Count Lymph % (Auto) [place] % (Auto) Lymph # (Auto) [place] # (Auto) Eos # (Auto) Baso # (Auto) Seg Neutrophils % Seg Neuts % (Manual) Lymphocytes % (Manual) Monocytes % (Manual) Basophils % (Manual) Nucleated RBC % Seg Neutrophils # Seg Neutrophils # Man Lymphocytes # (Manual) Monocytes # (Manual) Eosinophils # (Manual) Basophils # (Manual) PT INR APTT D-Dimer Heparin Anti-Xa Level ABG pH POC ABG pCO2 POC ABG pO2 ABG pO2 ABG HCO3 ABG O2 Saturation ABG Base Excess ABG Hemoglobin ABG Oxyhemoglobin ABG Sodium ABG Potassium ABG Chloride ABG Glucose Oxyhemoglobin Carboxyhemoglobin Sodium Potassium Chloride 112.0 H Carbon Dioxide 20 L BUN 92 H Creatinine 3.9 H D Glucose 214 H POC Glucose 145 H 191 H Lactic Acid Calcium 6.5 L D Phosphorus Magnesium Ferritin Direct Bilirubin AST 98 H ALT 84 H Alkaline Phosphatase Lactate Dehydrogenase Total Creatine Kinase C-Reactive Protein Total Protein 4.6 L Albumin 2.1 L Triglycerides 180 H Arterial Blood Glucose Arterial Blood Ionized Calcium Urine Creatinine Urine Chloride Vancomycin Trough Coronavirus (PCR) Crossmatch 06/21/20 06/21/20 06/21/20 08:56 11:12 12:43 WBC RBC Hgb Hct MCHC RDW Plt Count Lymph % (Auto) [place] % (Auto) Lymph # (Auto) [place] # (Auto) Eos # (Auto) Baso # (Auto) Seg Neutrophils % Seg Neuts % (Manual) Lymphocytes % (Manual) Monocytes % (Manual) Basophils % (Manual) Nucleated RBC % Seg Neutrophils # Seg Neutrophils # Man Lymphocytes # (Manual) Monocytes # (Manual) Eosinophils # (Manual) Basophils # (Manual) PT INR APTT D-Dimer Heparin Anti-Xa Level 0.28 L ABG pH 7.184 L POC ABG pCO2 48.3 H POC ABG pO2 172.1 H ABG pO2 ABG HCO3 ABG O2 Saturation ABG Base Excess ABG Hemoglobin ABG Oxyhemoglobin 98.7 H ABG Sodium ABG Potassium 4.9 H ABG Chloride 112.0 H ABG Glucose 196 H Oxyhemoglobin Carboxyhemoglobin 0.2 L Sodium Potassium Chloride Carbon Dioxide BUN Creatinine Glucose POC Glucose 177 H Lactic Acid Calcium Phosphorus Magnesium Ferritin Direct Bilirubin AST ALT Alkaline Phosphatase Lactate Dehydrogenase Total Creatine Kinase C-Reactive Protein Total Protein Albumin Triglycerides Arterial Blood Glucose 196 H Arterial Blood Ionized Calcium 4.1 L Urine Creatinine Urine Chloride Vancomycin Trough Coronavirus (PCR) Crossmatch 06/21/20 06/21/20 06/22/20 16:31 Unknown 00:12 WBC RBC Hgb Hct MCHC RDW Plt Count Lymph % (Auto) [place] % (Auto) Lymph # (Auto) [place] # (Auto) Eos # (Auto) Baso # (Auto) Seg Neutrophils % Seg Neuts % (Manual) Lymphocytes % (Manual) Monocytes % (Manual) Basophils % (Manual) Nucleated RBC % Seg Neutrophils # Seg Neutrophils # Man Lymphocytes # (Manual) Monocytes # (Manual) Eosinophils # (Manual) Basophils # (Manual) PT INR APTT D-Dimer Heparin Anti-Xa Level 0.78 H ABG pH POC ABG pCO2 POC ABG pO2 ABG pO2 ABG HCO3 ABG O2 Saturation ABG Base Excess ABG Hemoglobin ABG Oxyhemoglobin ABG Sodium ABG Potassium ABG Chloride ABG Glucose Oxyhemoglobin Carboxyhemoglobin Sodium Potassium Chloride Carbon Dioxide BUN Creatinine Glucose POC Glucose 150 H 173 H Lactic Acid Calcium Phosphorus Magnesium Ferritin Direct Bilirubin AST ALT Alkaline Phosphatase Lactate Dehydrogenase Total Creatine Kinase C-Reactive Protein Total Protein Albumin Triglycerides Arterial Blood Glucose Arterial Blood Ionized Calcium Urine Creatinine Urine Chloride Vancomycin Trough Coronavirus (PCR) Crossmatch 06/22/20 06/22/20 06/22/20 04:00 05:04 05:30 WBC 33.9 H RBC Hgb 11.7 L Hct 35.2 L MCHC RDW 15.8 H Plt Count Lymph % (Auto) [place] % (Auto) Lymph # (Auto) [place] # (Auto) Eos # (Auto) Baso # (Auto) Seg Neutrophils % Seg Neuts % (Manual) 93.0 H Lymphocytes % (Manual) 5.0 L Monocytes % (Manual) Basophils % (Manual) Nucleated RBC % Seg Neutrophils # Seg Neutrophils # Man 31.5 H Lymphocytes # (Manual) Monocytes # (Manual) Eosinophils # (Manual) Basophils # (Manual) PT INR APTT D-Dimer Heparin Anti-Xa Level ABG pH 7.169 L POC ABG pCO2 POC ABG pO2 ABG pO2 ABG HCO3 ABG O2 Saturation ABG Base Excess ABG Hemoglobin ABG Oxyhemoglobin ABG Sodium ABG Potassium 5.1 H ABG Chloride 112.0 H ABG Glucose 186 H Oxyhemoglobin Carboxyhemoglobin 0.3 L Sodium Potassium Chloride Carbon Dioxide BUN Creatinine Glucose POC Glucose 161 H Lactic Acid Calcium Phosphorus Magnesium Ferritin Direct Bilirubin AST ALT Alkaline Phosphatase Lactate Dehydrogenase Total Creatine Kinase C-Reactive Protein Total Protein Albumin Triglycerides Arterial Blood Glucose 186 H Arterial Blood Ionized Calcium 4.1 L Urine Creatinine Urine Chloride Vancomycin Trough Coronavirus (PCR) Crossmatch 06/22/20 06/22/20 06/22/20 05:30 11:39 13:27 WBC RBC Hgb Hct MCHC RDW Plt Count Lymph % (Auto) [place] % (Auto) Lymph # (Auto) [place] # (Auto) Eos # (Auto) Baso # (Auto) Seg Neutrophils % Seg Neuts % (Manual) Lymphocytes % (Manual) Monocytes % (Manual) Basophils % (Manual) Nucleated RBC % Seg Neutrophils # Seg Neutrophils # Man Lymphocytes # (Manual) Monocytes # (Manual) Eosinophils # (Manual) Basophils # (Manual) PT INR APTT D-Dimer Heparin Anti-Xa Level ABG pH POC ABG pCO2 POC ABG pO2 ABG pO2 ABG HCO3 ABG O2 Saturation ABG Base Excess ABG Hemoglobin ABG Oxyhemoglobin ABG Sodium ABG Potassium ABG Chloride ABG Glucose Oxyhemoglobin Carboxyhemoglobin Sodium Potassium 5.7 H Chloride 111.3 H Carbon Dioxide 18 L BUN 112 H Creatinine 5.0 H Glucose 173 H POC Glucose 172 H 176 H Lactic Acid Calcium 6.7 L Phosphorus Magnesium Ferritin Direct Bilirubin AST ALT Alkaline Phosphatase Lactate Dehydrogenase Total Creatine Kinase C-Reactive Protein Total Protein Albumin Triglycerides Arterial Blood Glucose Arterial Blood Ionized Calcium Urine Creatinine Urine Chloride Vancomycin Trough Coronavirus (PCR) Crossmatch 06/22/20 06/22/20 06/22/20 14:37 17:00 17:40 WBC RBC Hgb Hct MCHC RDW Plt Count Lymph % (Auto) [place] % (Auto) Lymph # (Auto) [place] # (Auto) Eos # (Auto) Baso # (Auto) Seg Neutrophils % Seg Neuts % (Manual) Lymphocytes % (Manual) Monocytes % (Manual) Basophils % (Manual) Nucleated RBC % Seg Neutrophils # Seg Neutrophils # Man Lymphocytes # (Manual) Monocytes # (Manual) Eosinophils # (Manual) Basophils # (Manual) PT INR APTT D-Dimer Heparin Anti-Xa Level 1.32 H ABG pH POC ABG pCO2 POC ABG pO2 ABG pO2 ABG HCO3 ABG O2 Saturation ABG Base Excess ABG Hemoglobin ABG Oxyhemoglobin ABG Sodium ABG Potassium ABG Chloride ABG Glucose Oxyhemoglobin Carboxyhemoglobin Sodium Potassium Chloride Carbon Dioxide BUN Creatinine Glucose POC Glucose 171 H Lactic Acid Calcium Phosphorus Magnesium Ferritin Direct Bilirubin AST ALT Alkaline Phosphatase Lactate Dehydrogenase Total Creatine Kinase C-Reactive Protein 5.30 H Total Protein Albumin Triglycerides Arterial Blood Glucose Arterial Blood Ionized Calcium Urine Creatinine Urine Chloride Vancomycin Trough Coronavirus (PCR) Crossmatch 06/22/20 06/23/20 06/23/20 23:36 02:13 02:41 WBC RBC Hgb Hct MCHC RDW Plt Count Lymph % (Auto) [place] % (Auto) Lymph # (Auto) [place] # (Auto) Eos # (Auto) Baso # (Auto) Seg Neutrophils % Seg Neuts % (Manual) Lymphocytes % (Manual) Monocytes % (Manual) Basophils % (Manual) Nucleated RBC % Seg Neutrophils # Seg Neutrophils # Man Lymphocytes # (Manual) Monocytes # (Manual) Eosinophils # (Manual) Basophils # (Manual) PT INR APTT D-Dimer Heparin Anti-Xa Level 0.21 L ABG pH 7.318 L POC ABG pCO2 POC ABG pO2 157.5 H ABG pO2 ABG HCO3 ABG O2 Saturation ABG Base Excess ABG Hemoglobin ABG Oxyhemoglobin ABG Sodium 135.6 L ABG Potassium 4.6 H ABG Chloride 110.0 H ABG Glucose 169 H Oxyhemoglobin Carboxyhemoglobin Sodium Potassium Chloride Carbon Dioxide BUN Creatinine Glucose POC Glucose 155 H Lactic Acid Calcium Phosphorus Magnesium Ferritin Direct Bilirubin AST ALT Alkaline Phosphatase Lactate Dehydrogenase Total Creatine Kinase C-Reactive Protein Total Protein Albumin Triglycerides Arterial Blood Glucose 169 H Arterial Blood Ionized Calcium Urine Creatinine Urine Chloride Vancomycin Trough Coronavirus (PCR) Crossmatch 06/23/20 06/23/20 06/23/20 04:00 04:00 05:24 WBC 27.4 H RBC Hgb 11.3 L Hct 33.8 L MCHC RDW Plt Count Lymph % (Auto) [place] % (Auto) Lymph # (Auto) [place] # (Auto) Eos # (Auto) Baso # (Auto) Seg Neutrophils % Seg Neuts % (Manual) 93.0 H Lymphocytes % (Manual) 1.0 L Monocytes % (Manual) Basophils % (Manual) Nucleated RBC % 1.0 H Seg Neutrophils # Seg Neutrophils # Man 25.5 H Lymphocytes # (Manual) 0.3 L Monocytes # (Manual) 1.1 H Eosinophils # (Manual) Basophils # (Manual) PT INR APTT D-Dimer Heparin Anti-Xa Level ABG pH POC ABG pCO2 POC ABG pO2 ABG pO2 ABG HCO3 ABG O2 Saturation ABG Base Excess ABG Hemoglobin ABG Oxyhemoglobin ABG Sodium ABG Potassium ABG Chloride ABG Glucose Oxyhemoglobin Carboxyhemoglobin Sodium Potassium Chloride 107.6 H Carbon Dioxide 20 L BUN 100 H Creatinine 4.7 H Glucose 168 H POC Glucose 151 H Lactic Acid Calcium Phosphorus Magnesium Ferritin Direct Bilirubin AST ALT Alkaline Phosphatase Lactate Dehydrogenase Total Creatine Kinase C-Reactive Protein Total Protein Albumin Triglycerides Arterial Blood Glucose Arterial Blood Ionized Calcium Urine Creatinine Urine Chloride Vancomycin Trough Coronavirus (PCR) Crossmatch 06/23/20 06/23/20 06/23/20 11:30 17:18 23:50 WBC RBC Hgb Hct MCHC RDW Plt Count Lymph % (Auto) [place] % (Auto) Lymph # (Auto) [place] # (Auto) Eos # (Auto) Baso # (Auto) Seg Neutrophils % Seg Neuts % (Manual) Lymphocytes % (Manual) Monocytes % (Manual) Basophils % (Manual) Nucleated RBC % Seg Neutrophils # Seg Neutrophils # Man Lymphocytes # (Manual) Monocytes # (Manual) Eosinophils # (Manual) Basophils # (Manual) PT INR APTT D-Dimer Heparin Anti-Xa Level ABG pH POC ABG pCO2 POC ABG pO2 ABG pO2 ABG HCO3 ABG O2 Saturation ABG Base Excess ABG Hemoglobin ABG Oxyhemoglobin ABG Sodium ABG Potassium ABG Chloride ABG Glucose Oxyhemoglobin Carboxyhemoglobin Sodium Potassium Chloride Carbon Dioxide BUN Creatinine Glucose POC Glucose 157 H 156 H 162 H Lactic Acid Calcium Phosphorus Magnesium Ferritin Direct Bilirubin AST ALT Alkaline Phosphatase Lactate Dehydrogenase Total Creatine Kinase C-Reactive Protein Total Protein Albumin Triglycerides Arterial Blood Glucose Arterial Blood Ionized Calcium Urine Creatinine Urine Chloride Vancomycin Trough Coronavirus (PCR) Crossmatch 06/24/20 06/24/20 06/24/20 04:41 05:57 06:30 WBC 34.3 H RBC Hgb 10.9 L Hct 32.6 L MCHC RDW Plt Count Lymph % (Auto) 2.0 L [place] % (Auto) Lymph # (Auto) 0.7 L [place] # (Auto) 1.2 H Eos # (Auto) Baso # (Auto) Seg Neutrophils % Seg Neuts % (Manual) 96.0 H Lymphocytes % (Manual) 3.0 L Monocytes % (Manual) Basophils % (Manual) Nucleated RBC % Seg Neutrophils # 32.3 H Seg Neutrophils # Man 32.9 H Lymphocytes # (Manual) 1.0 L Monocytes # (Manual) Eosinophils # (Manual) Basophils # (Manual) PT INR APTT D-Dimer Heparin Anti-Xa Level ABG pH POC ABG pCO2 POC ABG pO2 71.1 L ABG pO2 ABG HCO3 ABG O2 Saturation ABG Base Excess ABG Hemoglobin ABG Oxyhemoglobin 92.4 L ABG Sodium 115.6 L ABG Potassium ABG Chloride ABG Glucose 159 H Oxyhemoglobin Carboxyhemoglobin Sodium Potassium Chloride Carbon Dioxide BUN Creatinine Glucose POC Glucose 143 H Lactic Acid Calcium Phosphorus Magnesium Ferritin Direct Bilirubin AST ALT Alkaline Phosphatase Lactate Dehydrogenase Total Creatine Kinase C-Reactive Protein Total Protein Albumin Triglycerides Arterial Blood Glucose 159 H Arterial Blood Ionized Calcium 4.2 L Urine Creatinine Urine Chloride Vancomycin Trough Coronavirus (PCR) Crossmatch 06/24/20 06/24/20 06/24/20 07:03 09:37 11:56 WBC RBC Hgb Hct MCHC RDW Plt Count Lymph % (Auto) [place] % (Auto) Lymph # (Auto) [place] # (Auto) Eos # (Auto) Baso # (Auto) Seg Neutrophils % Seg Neuts % (Manual) Lymphocytes % (Manual) Monocytes % (Manual) Basophils % (Manual) Nucleated RBC % Seg Neutrophils # Seg Neutrophils # Man Lymphocytes # (Manual) Monocytes # (Manual) Eosinophils # (Manual) Basophils # (Manual) PT INR APTT D-Dimer Heparin Anti-Xa Level 0.26 L ABG pH POC ABG pCO2 POC ABG pO2 ABG pO2 ABG HCO3 ABG O2 Saturation ABG Base Excess ABG Hemoglobin ABG Oxyhemoglobin ABG Sodium ABG Potassium ABG Chloride ABG Glucose Oxyhemoglobin Carboxyhemoglobin Sodium Potassium 5.1 H Chloride Carbon Dioxide BUN 103 H Creatinine 5.0 H Glucose 163 H POC Glucose 149 H Lactic Acid Calcium 7.6 L Phosphorus Magnesium Ferritin Direct Bilirubin AST ALT Alkaline Phosphatase Lactate Dehydrogenase Total Creatine Kinase C-Reactive Protein Total Protein Albumin Triglycerides Arterial Blood Glucose Arterial Blood Ionized Calcium Urine Creatinine Urine Chloride Vancomycin Trough Coronavirus (PCR) Crossmatch 06/24/20 06/25/20 06/25/20 18:09 01:05 03:00 WBC RBC Hgb 10.6 L Hct 32.1 L MCHC RDW Plt Count Lymph % (Auto) [place] % (Auto) Lymph # (Auto) [place] # (Auto) Eos # (Auto) Baso # (Auto) Seg Neutrophils % Seg Neuts % (Manual) Lymphocytes % (Manual) Monocytes % (Manual) Basophils % (Manual) Nucleated RBC % Seg Neutrophils # Seg Neutrophils # Man Lymphocytes # (Manual) Monocytes # (Manual) Eosinophils # (Manual) Basophils # (Manual) PT INR APTT D-Dimer Heparin Anti-Xa Level ABG pH POC ABG pCO2 POC ABG pO2 ABG pO2 ABG HCO3 ABG O2 Saturation ABG Base Excess ABG Hemoglobin ABG Oxyhemoglobin ABG Sodium ABG Potassium ABG Chloride ABG Glucose Oxyhemoglobin Carboxyhemoglobin Sodium Potassium Chloride Carbon Dioxide BUN Creatinine Glucose POC Glucose 141 H 137 H Lactic Acid Calcium Phosphorus Magnesium Ferritin Direct Bilirubin AST ALT Alkaline Phosphatase Lactate Dehydrogenase Total Creatine Kinase C-Reactive Protein Total Protein Albumin Triglycerides Arterial Blood Glucose Arterial Blood Ionized Calcium Urine Creatinine Urine Chloride Vancomycin Trough Coronavirus (PCR) Crossmatch 06/25/20 06/25/20 06/25/20 03:48 05:17 12:08 WBC RBC Hgb Hct MCHC RDW Plt Count Lymph % (Auto) [place] % (Auto) Lymph # (Auto) [place] # (Auto) Eos # (Auto) Baso # (Auto) Seg Neutrophils % Seg Neuts % (Manual) Lymphocytes % (Manual) Monocytes % (Manual) Basophils % (Manual) Nucleated RBC % Seg Neutrophils # Seg Neutrophils # Man Lymphocytes # (Manual) Monocytes # (Manual) Eosinophils # (Manual) Basophils # (Manual) PT INR APTT D-Dimer Heparin Anti-Xa Level ABG pH POC ABG pCO2 29.4 L POC ABG pO2 67.1 L ABG pO2 ABG HCO3 ABG O2 Saturation ABG Base Excess ABG Hemoglobin 11.5 L ABG Oxyhemoglobin ABG Sodium 124.1 L ABG Potassium 4.6 H ABG Chloride ABG Glucose 159 H Oxyhemoglobin Carboxyhemoglobin Sodium Potassium Chloride Carbon Dioxide BUN Creatinine Glucose POC Glucose 149 H 150 H Lactic Acid Calcium Phosphorus Magnesium Ferritin Direct Bilirubin AST ALT Alkaline Phosphatase Lactate Dehydrogenase Total Creatine Kinase C-Reactive Protein Total Protein Albumin Triglycerides Arterial Blood Glucose 159 H Arterial Blood Ionized Calcium 4.2 L Urine Creatinine Urine Chloride Vancomycin Trough Coronavirus (PCR) Crossmatch 06/25/20 06/25/20 06/25/20 16:27 16:35 17:27 WBC RBC Hgb Hct MCHC RDW Plt Count Lymph % (Auto) [place] % (Auto) Lymph # (Auto) [place] # (Auto) Eos # (Auto) Baso # (Auto) Seg Neutrophils % Seg Neuts % (Manual) Lymphocytes % (Manual) Monocytes % (Manual) Basophils % (Manual) Nucleated RBC % Seg Neutrophils # Seg Neutrophils # Man Lymphocytes # (Manual) Monocytes # (Manual) Eosinophils # (Manual) Basophils # (Manual) PT INR APTT D-Dimer Heparin Anti-Xa Level < 0.10 L ABG pH POC ABG pCO2 POC ABG pO2 ABG pO2 ABG HCO3 ABG O2 Saturation ABG Base Excess ABG Hemoglobin ABG Oxyhemoglobin ABG Sodium ABG Potassium ABG Chloride ABG Glucose Oxyhemoglobin Carboxyhemoglobin Sodium Potassium Chloride Carbon Dioxide BUN Creatinine Glucose POC Glucose 143 H 156 H Lactic Acid Calcium Phosphorus Magnesium Ferritin Direct Bilirubin AST ALT Alkaline Phosphatase Lactate Dehydrogenase Total Creatine Kinase C-Reactive Protein Total Protein Albumin Triglycerides Arterial Blood Glucose Arterial Blood Ionized Calcium Urine Creatinine Urine Chloride Vancomycin Trough Coronavirus (PCR) Crossmatch 06/25/20 06/25/20 06/25/20 20:00 20:55 23:10 WBC 32.7 H RBC 3.06 L Hgb 9.0 L 9.5 L Hct 26.7 L 28.6 L MCHC RDW Plt Count Lymph % (Auto) [place] % (Auto) Lymph # (Auto) [place] # (Auto) Eos # (Auto) Baso # (Auto) Seg Neutrophils % Seg Neuts % (Manual) Lymphocytes % (Manual) 2.0 L Monocytes % (Manual) Basophils % (Manual) Nucleated RBC % Seg Neutrophils # Seg Neutrophils # Man 30.7 H Lymphocytes # (Manual) 0.7 L Monocytes # (Manual) 1.3 H Eosinophils # (Manual) Basophils # (Manual) PT 17.7 H INR 1.47 H APTT 65.8 H* D-Dimer Heparin Anti-Xa Level ABG pH POC ABG pCO2 POC ABG pO2 ABG pO2 ABG HCO3 ABG O2 Saturation ABG Base Excess ABG Hemoglobin ABG Oxyhemoglobin ABG Sodium ABG Potassium ABG Chloride ABG Glucose Oxyhemoglobin Carboxyhemoglobin Sodium Potassium Chloride Carbon Dioxide BUN Creatinine Glucose POC Glucose Lactic Acid Calcium Phosphorus Magnesium Ferritin Direct Bilirubin AST ALT Alkaline Phosphatase Lactate Dehydrogenase Total Creatine Kinase C-Reactive Protein Total Protein Albumin Triglycerides Arterial Blood Glucose Arterial Blood Ionized Calcium Urine Creatinine Urine Chloride Vancomycin Trough Coronavirus (PCR) Crossmatch 06/25/20 06/26/20 06/26/20 23:14 01:30 03:25 WBC RBC Hgb Hct MCHC RDW Plt Count Lymph % (Auto) [place] % (Auto) Lymph # (Auto) [place] # (Auto) Eos # (Auto) Baso # (Auto) Seg Neutrophils % Seg Neuts % (Manual) Lymphocytes % (Manual) Monocytes % (Manual) Basophils % (Manual) Nucleated RBC % Seg Neutrophils # Seg Neutrophils # Man Lymphocytes # (Manual) Monocytes # (Manual) Eosinophils # (Manual) Basophils # (Manual) PT INR APTT D-Dimer Heparin Anti-Xa Level < 0.10 L ABG pH POC ABG pCO2 POC ABG pO2 ABG pO2 ABG HCO3 ABG O2 Saturation ABG Base Excess ABG Hemoglobin 11.8 L ABG Oxyhemoglobin ABG Sodium 127.1 L ABG Potassium 5.4 H ABG Chloride ABG Glucose 155 H Oxyhemoglobin Carboxyhemoglobin 0.3 L Sodium Potassium Chloride Carbon Dioxide BUN Creatinine Glucose POC Glucose 148 H Lactic Acid Calcium Phosphorus Magnesium Ferritin Direct Bilirubin AST ALT Alkaline Phosphatase Lactate Dehydrogenase Total Creatine Kinase C-Reactive Protein Total Protein Albumin Triglycerides Arterial Blood Glucose 155 H Arterial Blood Ionized Calcium 4.2 L Urine Creatinine Urine Chloride Vancomycin Trough Coronavirus (PCR) Crossmatch 06/26/20 06/26/20 06/26/20 03:59 05:14 05:47 WBC 36.5 H RBC 3.26 L Hgb 9.7 L Hct 28.2 L MCHC RDW Plt Count Lymph % (Auto) [place] % (Auto) Lymph # (Auto) [place] # (Auto) Eos # (Auto) Baso # (Auto) Seg Neutrophils % Seg Neuts % (Manual) 92.0 H Lymphocytes % (Manual) 4.0 L Monocytes % (Manual) Basophils % (Manual) Nucleated RBC % Seg Neutrophils # Seg Neutrophils # Man 33.6 H Lymphocytes # (Manual) Monocytes # (Manual) Eosinophils # (Manual) Basophils # (Manual) PT INR APTT D-Dimer Heparin Anti-Xa Level ABG pH POC ABG pCO2 POC ABG pO2 ABG pO2 ABG HCO3 ABG O2 Saturation ABG Base Excess ABG Hemoglobin ABG Oxyhemoglobin ABG Sodium ABG Potassium ABG Chloride ABG Glucose Oxyhemoglobin Carboxyhemoglobin Sodium Potassium 5.9 H Chloride Carbon Dioxide 20 L BUN 144 H Creatinine 6.4 H Glucose 149 H POC Glucose 128 H Lactic Acid Calcium 7.6 L Phosphorus Magnesium Ferritin Direct Bilirubin AST ALT Alkaline Phosphatase Lactate Dehydrogenase Total Creatine Kinase C-Reactive Protein Total Protein Albumin Triglycerides Arterial Blood Glucose Arterial Blood Ionized Calcium Urine Creatinine Urine Chloride Vancomycin Trough Coronavirus (PCR) Crossmatch 06/26/20 06/26/20 06/26/20 05:47 12:47 17:42 WBC RBC Hgb Hct MCHC RDW Plt Count Lymph % (Auto) [place] % (Auto) Lymph # (Auto) [place] # (Auto) Eos # (Auto) Baso # (Auto) Seg Neutrophils % Seg Neuts % (Manual) Lymphocytes % (Manual) Monocytes % (Manual) Basophils % (Manual) Nucleated RBC % Seg Neutrophils # Seg Neutrophils # Man Lymphocytes # (Manual) Monocytes # (Manual) Eosinophils # (Manual) Basophils # (Manual) PT 17.4 H INR 1.44 H APTT D-Dimer Heparin Anti-Xa Level ABG pH POC ABG pCO2 POC ABG pO2 ABG pO2 ABG HCO3 ABG O2 Saturation ABG Base Excess ABG Hemoglobin ABG Oxyhemoglobin ABG Sodium ABG Potassium ABG Chloride ABG Glucose Oxyhemoglobin Carboxyhemoglobin Sodium Potassium Chloride Carbon Dioxide BUN Creatinine Glucose POC Glucose 124 H 127 H Lactic Acid Calcium Phosphorus Magnesium Ferritin Direct Bilirubin AST ALT Alkaline Phosphatase Lactate Dehydrogenase Total Creatine Kinase C-Reactive Protein Total Protein Albumin Triglycerides Arterial Blood Glucose Arterial Blood Ionized Calcium Urine Creatinine Urine Chloride Vancomycin Trough Coronavirus (PCR) Crossmatch 06/26/20 06/27/20 06/27/20 23:30 03:32 04:00 WBC RBC Hgb 8.7 L Hct 26.4 L MCHC RDW Plt Count Lymph % (Auto) [place] % (Auto) Lymph # (Auto) [place] # (Auto) Eos # (Auto) Baso # (Auto) Seg Neutrophils % Seg Neuts % (Manual) Lymphocytes % (Manual) Monocytes % (Manual) Basophils % (Manual) Nucleated RBC % Seg Neutrophils # Seg Neutrophils # Man Lymphocytes # (Manual) Monocytes # (Manual) Eosinophils # (Manual) Basophils # (Manual) PT INR APTT D-Dimer Heparin Anti-Xa Level ABG pH 7.298 L POC ABG pCO2 POC ABG pO2 ABG pO2 ABG HCO3 ABG O2 Saturation ABG Base Excess ABG Hemoglobin 9.6 L ABG Oxyhemoglobin ABG Sodium 124.4 L ABG Potassium 6.6 H ABG Chloride ABG Glucose 136 H Oxyhemoglobin Carboxyhemoglobin Sodium Potassium Chloride Carbon Dioxide BUN Creatinine Glucose POC Glucose 123 H Lactic Acid Calcium Phosphorus Magnesium Ferritin Direct Bilirubin AST ALT Alkaline Phosphatase Lactate Dehydrogenase Total Creatine Kinase C-Reactive Protein Total Protein Albumin Triglycerides Arterial Blood Glucose 136 H Arterial Blood Ionized Calcium 4.1 L Urine Creatinine Urine Chloride Vancomycin Trough Coronavirus (PCR) Crossmatch 06/27/20 06/27/20 06/27/20 05:26 10:14 11:58 WBC RBC Hgb Hct MCHC RDW Plt Count Lymph % (Auto) [place] % (Auto) Lymph # (Auto) [place] # (Auto) Eos # (Auto) Baso # (Auto) Seg Neutrophils % Seg Neuts % (Manual) Lymphocytes % (Manual) Monocytes % (Manual) Basophils % (Manual) Nucleated RBC % Seg Neutrophils # Seg Neutrophils # Man Lymphocytes # (Manual) Monocytes # (Manual) Eosinophils # (Manual) Basophils # (Manual) PT INR APTT D-Dimer Heparin Anti-Xa Level ABG pH POC ABG pCO2 POC ABG pO2 ABG pO2 ABG HCO3 ABG O2 Saturation ABG Base Excess ABG Hemoglobin ABG Oxyhemoglobin ABG Sodium ABG Potassium ABG Chloride ABG Glucose Oxyhemoglobin Carboxyhemoglobin Sodium 136 L Potassium 7.0 H* Chloride 97.8 L Carbon Dioxide BUN 172 H Creatinine 7.4 H Glucose 129 H POC Glucose 124 H 115 H Lactic Acid Calcium 7.6 L Phosphorus Magnesium Ferritin Direct Bilirubin AST ALT Alkaline Phosphatase Lactate Dehydrogenase Total Creatine Kinase C-Reactive Protein Total Protein Albumin Triglycerides Arterial Blood Glucose Arterial Blood Ionized Calcium Urine Creatinine Urine Chloride Vancomycin Trough Coronavirus (PCR) Crossmatch 06/27/20 06/27/20 06/27/20 17:32 18:30 23:24 WBC RBC Hgb Hct MCHC RDW Plt Count Lymph % (Auto) [place] % (Auto) Lymph # (Auto) [place] # (Auto) Eos # (Auto) Baso # (Auto) Seg Neutrophils % Seg Neuts % (Manual) Lymphocytes % (Manual) Monocytes % (Manual) Basophils % (Manual) Nucleated RBC % Seg Neutrophils # Seg Neutrophils # Man Lymphocytes # (Manual) Monocytes # (Manual) Eosinophils # (Manual) Basophils # (Manual) PT INR APTT D-Dimer Heparin Anti-Xa Level ABG pH POC ABG pCO2 POC ABG pO2 ABG pO2 ABG HCO3 ABG O2 Saturation ABG Base Excess ABG Hemoglobin ABG Oxyhemoglobin ABG Sodium ABG Potassium ABG Chloride ABG Glucose Oxyhemoglobin Carboxyhemoglobin Sodium Potassium 7.3 H* Chloride Carbon Dioxide BUN Creatinine Glucose POC Glucose 122 H 116 H Lactic Acid Calcium Phosphorus Magnesium Ferritin Direct Bilirubin AST ALT Alkaline Phosphatase Lactate Dehydrogenase Total Creatine Kinase C-Reactive Protein Total Protein Albumin Triglycerides Arterial Blood Glucose Arterial Blood Ionized Calcium Urine Creatinine Urine Chloride Vancomycin Trough Coronavirus (PCR) Crossmatch 06/28/20 06/28/20 06/28/20 00:00 02:16 05:37 WBC RBC Hgb Hct MCHC RDW Plt Count Lymph % (Auto) [place] % (Auto) Lymph # (Auto) [place] # (Auto) Eos # (Auto) Baso # (Auto) Seg Neutrophils % Seg Neuts % (Manual) Lymphocytes % (Manual) Monocytes % (Manual) Basophils % (Manual) Nucleated RBC % Seg Neutrophils # Seg Neutrophils # Man Lymphocytes # (Manual) Monocytes # (Manual) Eosinophils # (Manual) Basophils # (Manual) PT INR APTT D-Dimer Heparin Anti-Xa Level ABG pH POC ABG pCO2 POC ABG pO2 79.0 L ABG pO2 ABG HCO3 ABG O2 Saturation ABG Base Excess ABG Hemoglobin 11.7 L ABG Oxyhemoglobin ABG Sodium 128.1 L ABG Potassium 6.6 H ABG Chloride ABG Glucose 124 H Oxyhemoglobin Carboxyhemoglobin Sodium Potassium 7.3 H* Chloride Carbon Dioxide BUN Creatinine Glucose POC Glucose 115 H Lactic Acid Calcium Phosphorus Magnesium Ferritin Direct Bilirubin AST ALT Alkaline Phosphatase Lactate Dehydrogenase Total Creatine Kinase C-Reactive Protein Total Protein Albumin Triglycerides Arterial Blood Glucose 124 H Arterial Blood Ionized Calcium 4.2 L Urine Creatinine Urine Chloride Vancomycin Trough Coronavirus (PCR) Crossmatch 06/28/20 06/28/20 06/28/20 10:03 10:03 11:51 WBC 33.6 H RBC 3.03 L Hgb 8.9 L Hct 27.0 L MCHC RDW Plt Count Lymph % (Auto) [place] % (Auto) Lymph # (Auto) [place] # (Auto) Eos # (Auto) Baso # (Auto) Seg Neutrophils % Seg Neuts % (Manual) Lymphocytes % (Manual) Monocytes % (Manual) Basophils % (Manual) Nucleated RBC % Seg Neutrophils # Seg Neutrophils # Man Lymphocytes # (Manual) Monocytes # (Manual) Eosinophils # (Manual) Basophils # (Manual) PT INR APTT D-Dimer Heparin Anti-Xa Level ABG pH POC ABG pCO2 POC ABG pO2 ABG pO2 ABG HCO3 ABG O2 Saturation ABG Base Excess ABG Hemoglobin ABG Oxyhemoglobin ABG Sodium ABG Potassium ABG Chloride ABG Glucose Oxyhemoglobin Carboxyhemoglobin Sodium 136 L Potassium 6.5 H* Chloride Carbon Dioxide 20 L BUN 129 H Creatinine 5.8 H Glucose 113 H POC Glucose 107 H Lactic Acid Calcium 7.6 L Phosphorus Magnesium Ferritin Direct Bilirubin AST ALT Alkaline Phosphatase Lactate Dehydrogenase Total Creatine Kinase C-Reactive Protein Total Protein Albumin Triglycerides Arterial Blood Glucose Arterial Blood Ionized Calcium Urine Creatinine Urine Chloride Vancomycin Trough Coronavirus (PCR) Crossmatch 06/28/20 06/28/20 06/29/20 17:45 Unknown 03:15 WBC RBC Hgb Hct MCHC RDW Plt Count Lymph % (Auto) [place] % (Auto) Lymph # (Auto) [place] # (Auto) Eos # (Auto) Baso # (Auto) Seg Neutrophils % Seg Neuts % (Manual) Lymphocytes % (Manual) Monocytes % (Manual) Basophils % (Manual) Nucleated RBC % Seg Neutrophils # Seg Neutrophils # Man Lymphocytes # (Manual) Monocytes # (Manual) Eosinophils # (Manual) Basophils # (Manual) PT INR APTT D-Dimer Heparin Anti-Xa Level ABG pH POC ABG pCO2 POC ABG pO2 ABG pO2 ABG HCO3 ABG O2 Saturation ABG Base Excess ABG Hemoglobin 7.8 L ABG Oxyhemoglobin ABG Sodium 127.4 L ABG Potassium 5.5 H ABG Chloride 97.0 L ABG Glucose 96 H Oxyhemoglobin Carboxyhemoglobin Sodium Potassium 5.4 H Chloride Carbon Dioxide BUN Creatinine Glucose POC Glucose 117 H Lactic Acid Calcium Phosphorus Magnesium Ferritin Direct Bilirubin AST ALT Alkaline Phosphatase Lactate Dehydrogenase Total Creatine Kinase C-Reactive Protein Total Protein Albumin Triglycerides Arterial Blood Glucose 96 H Arterial Blood Ionized Calcium 4.0 L Urine Creatinine Urine Chloride Vancomycin Trough Coronavirus (PCR) Crossmatch 06/29/20 06/29/20 06/29/20 03:45 Unknown Unknown WBC RBC Hgb Hct MCHC RDW Plt Count Lymph % (Auto) [place] % (Auto) Lymph # (Auto) [place] # (Auto) Eos # (Auto) Baso # (Auto) Seg Neutrophils % Seg Neuts % (Manual) Lymphocytes % (Manual) Monocytes % (Manual) Basophils % (Manual) Nucleated RBC % Seg Neutrophils # Seg Neutrophils # Man Lymphocytes # (Manual) Monocytes # (Manual) Eosinophils # (Manual) Basophils # (Manual) PT INR APTT D-Dimer Heparin Anti-Xa Level ABG pH POC ABG pCO2 POC ABG pO2 ABG pO2 ABG HCO3 ABG O2 Saturation ABG Base Excess ABG Hemoglobin ABG Oxyhemoglobin ABG Sodium ABG Potassium ABG Chloride ABG Glucose Oxyhemoglobin Carboxyhemoglobin Sodium 135 L Potassium 6.0 H 6.1 H* Chloride 94.8 L Carbon Dioxide BUN 109 H 114 H Creatinine 5.5 H Glucose POC Glucose Lactic Acid Calcium 7.4 L Phosphorus Magnesium Ferritin Direct Bilirubin AST 47 H ALT Alkaline Phosphatase Lactate Dehydrogenase Total Creatine Kinase C-Reactive Protein Total Protein 4.9 L Albumin 2.2 L Triglycerides Arterial Blood Glucose Arterial Blood Ionized Calcium Urine Creatinine Urine Chloride Vancomycin Trough Coronavirus (PCR) Crossmatch 06/29/20 06/29/20 06/30/20 Unknown Unknown 03:32 WBC 20.7 H RBC 2.57 L Hgb 7.6 L Hct 23.0 L MCHC RDW Plt Count Lymph % (Auto) [place] % (Auto) Lymph # (Auto) [place] # (Auto) Eos # (Auto) Baso # (Auto) Seg Neutrophils % Seg Neuts % (Manual) Lymphocytes % (Manual) Monocytes % (Manual) Basophils % (Manual) Nucleated RBC % Seg Neutrophils # Seg Neutrophils # Man Lymphocytes # (Manual) Monocytes # (Manual) Eosinophils # (Manual) Basophils # (Manual) PT INR APTT D-Dimer Heparin Anti-Xa Level ABG pH POC ABG pCO2 POC ABG pO2 ABG pO2 ABG HCO3 ABG O2 Saturation ABG Base Excess ABG Hemoglobin 11.4 L ABG Oxyhemoglobin ABG Sodium 130.1 L ABG Potassium 5.0 H ABG Chloride ABG Glucose Oxyhemoglobin Carboxyhemoglobin Sodium Potassium Chloride Carbon Dioxide BUN Creatinine Glucose POC Glucose Lactic Acid Calcium Phosphorus Magnesium Ferritin Direct Bilirubin AST ALT Alkaline Phosphatase Lactate Dehydrogenase Total Creatine Kinase 618 H C-Reactive Protein Total Protein Albumin Triglycerides Arterial Blood Glucose Arterial Blood Ionized Calcium 3.9 L Urine Creatinine Urine Chloride Vancomycin Trough Coronavirus (PCR) Crossmatch 06/30/20 06/30/20 06/30/20 03:50 03:50 11:39 WBC 13.1 H RBC Hgb Hct MCHC RDW Plt Count Lymph % (Auto) [place] % (Auto) Lymph # (Auto) [place] # (Auto) Eos # (Auto) Baso # (Auto) Seg Neutrophils % Seg Neuts % (Manual) 95.0 H Lymphocytes % (Manual) 3.0 L Monocytes % (Manual) Basophils % (Manual) Nucleated RBC % Seg Neutrophils # Seg Neutrophils # Man 12.4 H Lymphocytes # (Manual) 0.4 L Monocytes # (Manual) Eosinophils # (Manual) Basophils # (Manual) PT INR APTT D-Dimer Heparin Anti-Xa Level ABG pH POC ABG pCO2 POC ABG pO2 ABG pO2 ABG HCO3 ABG O2 Saturation ABG Base Excess ABG Hemoglobin ABG Oxyhemoglobin ABG Sodium ABG Potassium ABG Chloride ABG Glucose Oxyhemoglobin Carboxyhemoglobin Sodium 135 L Potassium 5.4 H D Chloride 93.6 L Carbon Dioxide BUN 85 H Creatinine 4.6 H Glucose POC Glucose 111 H Lactic Acid Calcium 7.1 L Phosphorus 9.40 H Magnesium Ferritin Direct Bilirubin AST ALT Alkaline Phosphatase Lactate Dehydrogenase Total Creatine Kinase C-Reactive Protein Total Protein Albumin Triglycerides Arterial Blood Glucose Arterial Blood Ionized Calcium Urine Creatinine Urine Chloride Vancomycin Trough Coronavirus (PCR) Crossmatch 06/30/20 06/30/20 07/01/20 13:12 Unknown 03:19 WBC RBC Hgb 7.8 L D Hct 23.2 L D MCHC RDW Plt Count Lymph % (Auto) [place] % (Auto) Lymph # (Auto) [place] # (Auto) Eos # (Auto) Baso # (Auto) Seg Neutrophils % Seg Neuts % (Manual) Lymphocytes % (Manual) Monocytes % (Manual) Basophils % (Manual) Nucleated RBC % Seg Neutrophils # Seg Neutrophils # Man Lymphocytes # (Manual) Monocytes # (Manual) Eosinophils # (Manual) Basophils # (Manual) PT INR APTT D-Dimer Heparin Anti-Xa Level ABG pH 7.461 H POC ABG pCO2 POC ABG pO2 77.2 L ABG pO2 ABG HCO3 ABG O2 Saturation ABG Base Excess ABG Hemoglobin 6.9 L ABG Oxyhemoglobin ABG Sodium 128.5 L ABG Potassium ABG Chloride 97.0 L ABG Glucose Oxyhemoglobin Carboxyhemoglobin Sodium Potassium Chloride Carbon Dioxide BUN Creatinine Glucose POC Glucose Lactic Acid Calcium Phosphorus Magnesium Ferritin Direct Bilirubin AST ALT Alkaline Phosphatase Lactate Dehydrogenase Total Creatine Kinase C-Reactive Protein Total Protein Albumin Triglycerides Arterial Blood Glucose Arterial Blood Ionized Calcium 3.7 L Urine Creatinine Urine Chloride Vancomycin Trough Coronavirus (PCR) Positive A Crossmatch 07/01/20 07/01/20 07/01/20 06:00 06:00 11:04 WBC 16.7 H RBC 2.16 L Hgb 6.4 L Hct 19.2 L* MCHC RDW Plt Count Lymph % (Auto) [place] % (Auto) Lymph # (Auto) [place] # (Auto) Eos # (Auto) Baso # (Auto) Seg Neutrophils % Seg Neuts % (Manual) Lymphocytes % (Manual) Monocytes % (Manual) Basophils % (Manual) Nucleated RBC % Seg Neutrophils # Seg Neutrophils # Man Lymphocytes # (Manual) Monocytes # (Manual) Eosinophils # (Manual) Basophils # (Manual) PT INR APTT D-Dimer Heparin Anti-Xa Level ABG pH POC ABG pCO2 POC ABG pO2 ABG pO2 ABG HCO3 ABG O2 Saturation ABG Base Excess ABG Hemoglobin ABG Oxyhemoglobin ABG Sodium ABG Potassium ABG Chloride ABG Glucose Oxyhemoglobin Carboxyhemoglobin Sodium 136 L Potassium Chloride 95.8 L Carbon Dioxide BUN 72 H Creatinine 4.3 H Glucose POC Glucose Lactic Acid Calcium 6.7 L Phosphorus Magnesium Ferritin Direct Bilirubin AST ALT Alkaline Phosphatase Lactate Dehydrogenase Total Creatine Kinase C-Reactive Protein Total Protein Albumin Triglycerides 250 H Arterial Blood Glucose Arterial Blood Ionized Calcium Urine Creatinine Urine Chloride Vancomycin Trough Coronavirus (PCR) Crossmatch See Detail 07/02/20 07/02/20 07/02/20 04:44 06:00 11:33 WBC 14.6 H RBC 2.47 L Hgb 7.4 L Hct 21.8 L MCHC RDW Plt Count Lymph % (Auto) [place] % (Auto) Lymph # (Auto) [place] # (Auto) Eos # (Auto) Baso # (Auto) Seg Neutrophils % Seg Neuts % (Manual) Lymphocytes % (Manual) Monocytes % (Manual) Basophils % (Manual) Nucleated RBC % Seg Neutrophils # Seg Neutrophils # Man Lymphocytes # (Manual) Monocytes # (Manual) Eosinophils # (Manual) Basophils # (Manual) PT INR APTT D-Dimer Heparin Anti-Xa Level ABG pH 7.457 H POC ABG pCO2 POC ABG pO2 79.4 L ABG pO2 ABG HCO3 ABG O2 Saturation ABG Base Excess ABG Hemoglobin 8.5 L ABG Oxyhemoglobin ABG Sodium 128.4 L ABG Potassium ABG Chloride 97.0 L ABG Glucose 100 H Oxyhemoglobin Carboxyhemoglobin Sodium 133 L Potassium 5.2 H Chloride 93.3 L Carbon Dioxide BUN 66 H Creatinine 4.1 H Glucose 102 H POC Glucose Lactic Acid Calcium 7.2 L Phosphorus Magnesium Ferritin Direct Bilirubin AST ALT Alkaline Phosphatase Lactate Dehydrogenase Total Creatine Kinase C-Reactive Protein Total Protein Albumin Triglycerides Arterial Blood Glucose 100 H Arterial Blood Ionized Calcium 3.9 L Urine Creatinine Urine Chloride Vancomycin Trough Coronavirus (PCR) Crossmatch 07/02/20 07/03/20 07/03/20 11:33 03:54 09:15 WBC 16.6 H RBC 2.44 L Hgb 7.3 L Hct 21.4 L MCHC RDW Plt Count Lymph % (Auto) [place] % (Auto) Lymph # (Auto) [place] # (Auto) Eos # (Auto) Baso # (Auto) Seg Neutrophils % Seg Neuts % (Manual) Lymphocytes % (Manual) Monocytes % (Manual) Basophils % (Manual) Nucleated RBC % Seg Neutrophils # Seg Neutrophils # Man Lymphocytes # (Manual) Monocytes # (Manual) Eosinophils # (Manual) Basophils # (Manual) PT INR APTT D-Dimer Heparin Anti-Xa Level ABG pH POC ABG pCO2 POC ABG pO2 66.1 L ABG pO2 ABG HCO3 ABG O2 Saturation ABG Base Excess ABG Hemoglobin 8.0 L ABG Oxyhemoglobin ABG Sodium 124.6 L ABG Potassium 5.5 H ABG Chloride 96.0 L ABG Glucose 111 H Oxyhemoglobin Carboxyhemoglobin Sodium Potassium Chloride Carbon Dioxide BUN Creatinine Glucose POC Glucose Lactic Acid Calcium Phosphorus Magnesium Ferritin Direct Bilirubin 0.7 H AST 94 H ALT 60 H Alkaline Phosphatase Lactate Dehydrogenase Total Creatine Kinase C-Reactive Protein Total Protein 4.4 L Albumin 1.9 L Triglycerides Arterial Blood Glucose 111 H Arterial Blood Ionized Calcium 3.8 L Urine Creatinine Urine Chloride Vancomycin Trough Coronavirus (PCR) Crossmatch 07/03/20 07/03/20 07/03/20 09:15 10:10 14:50 WBC RBC Hgb Hct MCHC RDW Plt Count Lymph % (Auto) [place] % (Auto) Lymph # (Auto) [place] # (Auto) Eos # (Auto) Baso # (Auto) Seg Neutrophils % Seg Neuts % (Manual) Lymphocytes % (Manual) Monocytes % (Manual) Basophils % (Manual) Nucleated RBC % Seg Neutrophils # Seg Neutrophils # Man Lymphocytes # (Manual) Monocytes # (Manual) Eosinophils # (Manual) Basophils # (Manual) PT INR APTT D-Dimer 6608.00 H Heparin Anti-Xa Level ABG pH POC ABG pCO2 POC ABG pO2 ABG pO2 ABG HCO3 ABG O2 Saturation ABG Base Excess ABG Hemoglobin ABG Oxyhemoglobin ABG Sodium ABG Potassium ABG Chloride ABG Glucose Oxyhemoglobin Carboxyhemoglobin Sodium 133 L Potassium 6.2 H* Chloride 93.1 L Carbon Dioxide BUN 89 H Creatinine 5.1 H Glucose POC Glucose Lactic Acid Calcium 7.0 L Phosphorus Magnesium Ferritin Direct Bilirubin AST ALT Alkaline Phosphatase Lactate Dehydrogenase Total Creatine Kinase C-Reactive Protein Total Protein Albumin Triglycerides Arterial Blood Glucose Arterial Blood Ionized Calcium Urine Creatinine Urine Chloride Vancomycin Trough Coronavirus (PCR) Positive A Crossmatch 07/03/20 07/03/20 07/03/20 14:50 14:50 14:50 WBC RBC Hgb Hct MCHC RDW Plt Count Lymph % (Auto) [place] % (Auto) Lymph # (Auto) [place] # (Auto) Eos # (Auto) Baso # (Auto) Seg Neutrophils % Seg Neuts % (Manual) Lymphocytes % (Manual) Monocytes % (Manual) Basophils % (Manual) Nucleated RBC % Seg Neutrophils # Seg Neutrophils # Man Lymphocytes # (Manual) Monocytes # (Manual) Eosinophils # (Manual) Basophils # (Manual) PT INR APTT D-Dimer Heparin Anti-Xa Level ABG pH POC ABG pCO2 POC ABG pO2 ABG pO2 ABG HCO3 ABG O2 Saturation ABG Base Excess ABG Hemoglobin ABG Oxyhemoglobin ABG Sodium ABG Potassium ABG Chloride ABG Glucose Oxyhemoglobin Carboxyhemoglobin Sodium Potassium Chloride Carbon Dioxide BUN Creatinine Glucose POC Glucose Lactic Acid < 0.20 L Calcium Phosphorus Magnesium Ferritin 1171.0 H Direct Bilirubin AST ALT Alkaline Phosphatase Lactate Dehydrogenase 525 H Total Creatine Kinase C-Reactive Protein 31.50 H Total Protein Albumin Triglycerides Arterial Blood Glucose Arterial Blood Ionized Calcium Urine Creatinine Urine Chloride Vancomycin Trough Coronavirus (PCR) Crossmatch 07/03/20 07/04/20 07/04/20 16:47 05:20 05:20 WBC 11.8 H RBC 2.32 L Hgb 6.7 L Hct 20.8 L MCHC RDW Plt Count Lymph % (Auto) 2.6 L [place] % (Auto) Lymph # (Auto) 0.3 L [place] # (Auto) Eos # (Auto) Baso # (Auto) Seg Neutrophils % Seg Neuts % (Manual) Lymphocytes % (Manual) Monocytes % (Manual) Basophils % (Manual) Nucleated RBC % Seg Neutrophils # 11.0 H Seg Neutrophils # Man Lymphocytes # (Manual) Monocytes # (Manual) Eosinophils # (Manual) Basophils # (Manual) PT INR APTT D-Dimer Heparin Anti-Xa Level ABG pH POC ABG pCO2 POC ABG pO2 ABG pO2 ABG HCO3 ABG O2 Saturation ABG Base Excess ABG Hemoglobin ABG Oxyhemoglobin ABG Sodium ABG Potassium ABG Chloride ABG Glucose Oxyhemoglobin Carboxyhemoglobin Sodium Potassium 6.0 H Chloride 97.8 L Carbon Dioxide BUN 75 H Creatinine 4.5 H Glucose 121 H POC Glucose 107 H Lactic Acid Calcium 7.9 L Phosphorus Magnesium Ferritin Direct Bilirubin AST ALT Alkaline Phosphatase Lactate Dehydrogenase Total Creatine Kinase C-Reactive Protein Total Protein Albumin Triglycerides Arterial Blood Glucose Arterial Blood Ionized Calcium Urine Creatinine Urine Chloride Vancomycin Trough Coronavirus (PCR) Crossmatch 07/04/20 07/04/20 07/04/20 05:20 05:50 09:25 WBC RBC Hgb Hct MCHC RDW Plt Count Lymph % (Auto) [place] % (Auto) Lymph # (Auto) [place] # (Auto) Eos # (Auto) Baso # (Auto) Seg Neutrophils % Seg Neuts % (Manual) Lymphocytes % (Manual) Monocytes % (Manual) Basophils % (Manual) Nucleated RBC % Seg Neutrophils # Seg Neutrophils # Man Lymphocytes # (Manual) Monocytes # (Manual) Eosinophils # (Manual) Basophils # (Manual) PT INR APTT D-Dimer Heparin Anti-Xa Level ABG pH 7.324 L POC ABG pCO2 POC ABG pO2 ABG pO2 98.9 H ABG HCO3 26.8 H ABG O2 Saturation ABG Base Excess ABG Hemoglobin < 5.1 L ABG Oxyhemoglobin ABG Sodium ABG Potassium ABG Chloride ABG Glucose Oxyhemoglobin Carboxyhemoglobin Sodium Potassium Chloride Carbon Dioxide BUN Creatinine Glucose POC Glucose 114 H Lactic Acid Calcium Phosphorus Magnesium Ferritin Direct Bilirubin AST ALT Alkaline Phosphatase Lactate Dehydrogenase Total Creatine Kinase C-Reactive Protein Total Protein Albumin Triglycerides Arterial Blood Glucose Arterial Blood Ionized Calcium Urine Creatinine Urine Chloride Vancomycin Trough Coronavirus (PCR) Crossmatch See Detail 07/04/20 07/04/20 07/04/20 12:33 17:41 23:04 WBC RBC Hgb Hct MCHC RDW Plt Count Lymph % (Auto) [place] % (Auto) Lymph # (Auto) [place] # (Auto) Eos # (Auto) Baso # (Auto) Seg Neutrophils % Seg Neuts % (Manual) Lymphocytes % (Manual) Monocytes % (Manual) Basophils % (Manual) Nucleated RBC % Seg Neutrophils # Seg Neutrophils # Man Lymphocytes # (Manual) Monocytes # (Manual) Eosinophils # (Manual) Basophils # (Manual) PT INR APTT D-Dimer Heparin Anti-Xa Level ABG pH POC ABG pCO2 POC ABG pO2 ABG pO2 ABG HCO3 ABG O2 Saturation ABG Base Excess ABG Hemoglobin ABG Oxyhemoglobin ABG Sodium ABG Potassium ABG Chloride ABG Glucose Oxyhemoglobin Carboxyhemoglobin Sodium Potassium Chloride Carbon Dioxide BUN Creatinine Glucose POC Glucose 119 H 109 H 116 H Lactic Acid Calcium Phosphorus Magnesium Ferritin Direct Bilirubin AST ALT Alkaline Phosphatase Lactate Dehydrogenase Total Creatine Kinase C-Reactive Protein Total Protein Albumin Triglycerides Arterial Blood Glucose Arterial Blood Ionized Calcium Urine Creatinine Urine Chloride Vancomycin Trough Coronavirus (PCR) Crossmatch 07/05/20 07/05/20 07/05/20 04:30 08:21 08:21 WBC RBC 2.77 L Hgb 7.9 L Hct 23.9 L MCHC RDW 16.7 H Plt Count Lymph % (Auto) 7.5 L [place] % (Auto) Lymph # (Auto) 0.7 L [place] # (Auto) Eos # (Auto) Baso # (Auto) Seg Neutrophils % 85.8 H Seg Neuts % (Manual) Lymphocytes % (Manual) Monocytes % (Manual) Basophils % (Manual) Nucleated RBC % Seg Neutrophils # 7.8 H Seg Neutrophils # Man Lymphocytes # (Manual) Monocytes # (Manual) Eosinophils # (Manual) Basophils # (Manual) PT INR APTT D-Dimer Heparin Anti-Xa Level ABG pH 7.295 L POC ABG pCO2 POC ABG pO2 ABG pO2 151.9 H ABG HCO3 26.8 H ABG O2 Saturation ABG Base Excess ABG Hemoglobin 7.3 L ABG Oxyhemoglobin ABG Sodium ABG Potassium ABG Chloride ABG Glucose Oxyhemoglobin Carboxyhemoglobin Sodium Potassium Chloride Carbon Dioxide BUN Creatinine Glucose POC Glucose Lactic Acid Calcium Phosphorus Magnesium Ferritin Direct Bilirubin AST ALT Alkaline Phosphatase Lactate Dehydrogenase Total Creatine Kinase C-Reactive Protein Total Protein Albumin Triglycerides 258 H Arterial Blood Glucose Arterial Blood Ionized Calcium Urine Creatinine Urine Chloride Vancomycin Trough Coronavirus (PCR) Crossmatch 07/05/20 07/05/20 07/06/20 08:21 12:12 04:29 WBC RBC Hgb Hct MCHC RDW Plt Count Lymph % (Auto) [place] % (Auto) Lymph # (Auto) [place] # (Auto) Eos # (Auto) Baso # (Auto) Seg Neutrophils % Seg Neuts % (Manual) Lymphocytes % (Manual) Monocytes % (Manual) Basophils % (Manual) Nucleated RBC % Seg Neutrophils # Seg Neutrophils # Man Lymphocytes # (Manual) Monocytes # (Manual) Eosinophils # (Manual) Basophils # (Manual) PT INR APTT D-Dimer Heparin Anti-Xa Level ABG pH 7.291 L POC ABG pCO2 51.3 H POC ABG pO2 ABG pO2 ABG HCO3 ABG O2 Saturation ABG Base Excess ABG Hemoglobin 8.5 L ABG Oxyhemoglobin ABG Sodium 129.6 L ABG Potassium 4.8 H ABG Chloride 96.0 L ABG Glucose Oxyhemoglobin Carboxyhemoglobin Sodium 133 L Potassium 5.6 H Chloride 94.4 L Carbon Dioxide BUN 80 H Creatinine 4.2 H Glucose 114 H POC Glucose 106 H Lactic Acid Calcium 7.6 L Phosphorus Magnesium Ferritin Direct Bilirubin 0.5 H AST 75 H ALT 86 H Alkaline Phosphatase Lactate Dehydrogenase Total Creatine Kinase C-Reactive Protein Total Protein 5.6 L D Albumin 1.9 L Triglycerides Arterial Blood Glucose Arterial Blood Ionized Calcium 4.2 L Urine Creatinine Urine Chloride Vancomycin Trough Coronavirus (PCR) Crossmatch 07/06/20 07/06/20 07/06/20 11:35 11:35 12:16 WBC RBC 2.54 L Hgb 7.5 L Hct 21.5 L MCHC 35 H RDW 15.7 H Plt Count Lymph % (Auto) [place] % (Auto) Lymph # (Auto) [place] # (Auto) Eos # (Auto) Baso # (Auto) Seg Neutrophils % Seg Neuts % (Manual) Lymphocytes % (Manual) Monocytes % (Manual) Basophils % (Manual) Nucleated RBC % Seg Neutrophils # Seg Neutrophils # Man Lymphocytes # (Manual) Monocytes # (Manual) Eosinophils # (Manual) Basophils # (Manual) PT INR APTT D-Dimer Heparin Anti-Xa Level ABG pH POC ABG pCO2 POC ABG pO2 ABG pO2 ABG HCO3 ABG O2 Saturation ABG Base Excess ABG Hemoglobin ABG Oxyhemoglobin ABG Sodium ABG Potassium ABG Chloride ABG Glucose Oxyhemoglobin Carboxyhemoglobin Sodium 130 L Potassium Chloride 92.2 L Carbon Dioxide 19 L D BUN 107 H Creatinine 5.1 H Glucose 106 H POC Glucose 106 H Lactic Acid Calcium 7.5 L Phosphorus Magnesium Ferritin Direct Bilirubin AST ALT Alkaline Phosphatase Lactate Dehydrogenase Total Creatine Kinase C-Reactive Protein Total Protein Albumin Triglycerides Arterial Blood Glucose Arterial Blood Ionized Calcium Urine Creatinine Urine Chloride Vancomycin Trough Coronavirus (PCR) Crossmatch 07/06/20 07/06/20 07/06/20 17:01 21:56 23:41 WBC RBC Hgb Hct MCHC RDW Plt Count Lymph % (Auto) [place] % (Auto) Lymph # (Auto) [place] # (Auto) Eos # (Auto) Baso # (Auto) Seg Neutrophils % Seg Neuts % (Manual) Lymphocytes % (Manual) Monocytes % (Manual) Basophils % (Manual) Nucleated RBC % Seg Neutrophils # Seg Neutrophils # Man Lymphocytes # (Manual) Monocytes # (Manual) Eosinophils # (Manual) Basophils # (Manual) PT INR APTT D-Dimer Heparin Anti-Xa Level ABG pH POC ABG pCO2 POC ABG pO2 ABG pO2 ABG HCO3 ABG O2 Saturation ABG Base Excess ABG Hemoglobin ABG Oxyhemoglobin ABG Sodium ABG Potassium ABG Chloride ABG Glucose Oxyhemoglobin Carboxyhemoglobin Sodium 135 L Potassium 5.1 H Chloride Carbon Dioxide BUN 73 H Creatinine 4.0 H Glucose 112 H POC Glucose 109 H 111 H Lactic Acid Calcium 7.8 L Phosphorus Magnesium Ferritin Direct Bilirubin AST ALT Alkaline Phosphatase Lactate Dehydrogenase Total Creatine Kinase C-Reactive Protein Total Protein Albumin Triglycerides Arterial Blood Glucose Arterial Blood Ionized Calcium Urine Creatinine Urine Chloride Vancomycin Trough Coronavirus (PCR) Crossmatch 07/07/20 07/07/20 07/07/20 04:18 05:04 05:29 WBC RBC 2.46 L Hgb 7.6 L Hct 21.5 L MCHC 35 H RDW 16.5 H Plt Count Lymph % (Auto) [place] % (Auto) Lymph # (Auto) [place] # (Auto) Eos # (Auto) Baso # (Auto) Seg Neutrophils % Seg Neuts % (Manual) 82.0 H Lymphocytes % (Manual) Monocytes % (Manual) Basophils % (Manual) Nucleated RBC % 1.0 H Seg Neutrophils # Seg Neutrophils # Man Lymphocytes # (Manual) 1.1 L Monocytes # (Manual) Eosinophils # (Manual) Basophils # (Manual) PT INR APTT D-Dimer Heparin Anti-Xa Level ABG pH POC ABG pCO2 POC ABG pO2 79.6 L ABG pO2 ABG HCO3 ABG O2 Saturation ABG Base Excess ABG Hemoglobin 8.2 L ABG Oxyhemoglobin ABG Sodium 133.3 L ABG Potassium 4.7 H ABG Chloride ABG Glucose 135 H Oxyhemoglobin Carboxyhemoglobin Sodium Potassium Chloride Carbon Dioxide BUN Creatinine Glucose POC Glucose 112 H Lactic Acid Calcium Phosphorus Magnesium Ferritin Direct Bilirubin AST ALT Alkaline Phosphatase Lactate Dehydrogenase Total Creatine Kinase C-Reactive Protein Total Protein Albumin Triglycerides Arterial Blood Glucose 135 H Arterial Blood Ionized Calcium 4.5 L Urine Creatinine Urine Chloride Vancomycin Trough Coronavirus (PCR) Crossmatch 07/07/20 07/07/20 07/07/20 10:17 12:18 17:43 WBC RBC Hgb Hct MCHC RDW Plt Count Lymph % (Auto) [place] % (Auto) Lymph # (Auto) [place] # (Auto) Eos # (Auto) Baso # (Auto) Seg Neutrophils % Seg Neuts % (Manual) Lymphocytes % (Manual) Monocytes % (Manual) Basophils % (Manual) Nucleated RBC % Seg Neutrophils # Seg Neutrophils # Man Lymphocytes # (Manual) Monocytes # (Manual) Eosinophils # (Manual) Basophils # (Manual) PT INR APTT D-Dimer Heparin Anti-Xa Level ABG pH POC ABG pCO2 POC ABG pO2 ABG pO2 ABG HCO3 ABG O2 Saturation ABG Base Excess ABG Hemoglobin ABG Oxyhemoglobin ABG Sodium ABG Potassium ABG Chloride ABG Glucose Oxyhemoglobin Carboxyhemoglobin Sodium 136 L Potassium Chloride 96.8 L Carbon Dioxide BUN 82 H Creatinine 4.3 H Glucose 129 H POC Glucose 108 H 116 H Lactic Acid Calcium 7.8 L Phosphorus Magnesium Ferritin Direct Bilirubin AST ALT Alkaline Phosphatase Lactate Dehydrogenase Total Creatine Kinase C-Reactive Protein Total Protein Albumin Triglycerides Arterial Blood Glucose Arterial Blood Ionized Calcium Urine Creatinine Urine Chloride Vancomycin Trough Coronavirus (PCR) Crossmatch 07/07/20 07/08/20 07/08/20 23:31 04:00 04:00 WBC RBC 2.52 L Hgb 7.3 L Hct 22.2 L MCHC RDW 16.6 H Plt Count Lymph % (Auto) 11.5 L [place] % (Auto) Lymph # (Auto) [place] # (Auto) Eos # (Auto) Baso # (Auto) Seg Neutrophils % 78.2 H Seg Neuts % (Manual) Lymphocytes % (Manual) Monocytes % (Manual) Basophils % (Manual) Nucleated RBC % Seg Neutrophils # 8.0 H Seg Neutrophils # Man Lymphocytes # (Manual) Monocytes # (Manual) Eosinophils # (Manual) Basophils # (Manual) PT INR APTT D-Dimer Heparin Anti-Xa Level ABG pH POC ABG pCO2 POC ABG pO2 ABG pO2 ABG HCO3 ABG O2 Saturation ABG Base Excess ABG Hemoglobin ABG Oxyhemoglobin ABG Sodium ABG Potassium ABG Chloride ABG Glucose Oxyhemoglobin Carboxyhemoglobin Sodium 132 L Potassium 5.4 H Chloride 92.5 L Carbon Dioxide BUN 98 H Creatinine 4.9 H Glucose 105 H POC Glucose 117 H Lactic Acid Calcium 7.9 L Phosphorus Magnesium Ferritin Direct Bilirubin AST ALT Alkaline Phosphatase Lactate Dehydrogenase Total Creatine Kinase C-Reactive Protein Total Protein Albumin Triglycerides Arterial Blood Glucose Arterial Blood Ionized Calcium Urine Creatinine Urine Chloride Vancomycin Trough Coronavirus (PCR) Crossmatch 07/08/20 07/08/20 07/08/20 04:09 11:34 17:05 WBC RBC Hgb Hct MCHC RDW Plt Count Lymph % (Auto) [place] % (Auto) Lymph # (Auto) [place] # (Auto) Eos # (Auto) Baso # (Auto) Seg Neutrophils % Seg Neuts % (Manual) Lymphocytes % (Manual) Monocytes % (Manual) Basophils % (Manual) Nucleated RBC % Seg Neutrophils # Seg Neutrophils # Man Lymphocytes # (Manual) Monocytes # (Manual) Eosinophils # (Manual) Basophils # (Manual) PT INR APTT D-Dimer Heparin Anti-Xa Level ABG pH 7.220 L POC ABG pCO2 60.5 H POC ABG pO2 ABG pO2 ABG HCO3 ABG O2 Saturation ABG Base Excess ABG Hemoglobin 8.2 L ABG Oxyhemoglobin ABG Sodium 131.3 L ABG Potassium 5.2 H ABG Chloride ABG Glucose 103 H Oxyhemoglobin Carboxyhemoglobin Sodium Potassium Chloride Carbon Dioxide BUN Creatinine Glucose POC Glucose 140 H 125 H Lactic Acid Calcium Phosphorus Magnesium Ferritin Direct Bilirubin AST ALT Alkaline Phosphatase Lactate Dehydrogenase Total Creatine Kinase C-Reactive Protein Total Protein Albumin Triglycerides Arterial Blood Glucose 103 H Arterial Blood Ionized Calcium 4.3 L Urine Creatinine Urine Chloride Vancomycin Trough Coronavirus (PCR) Crossmatch 07/08/20 07/08/20 07/09/20 20:21 23:43 05:10 WBC RBC Hgb Hct MCHC RDW Plt Count Lymph % (Auto) [place] % (Auto) Lymph # (Auto) [place] # (Auto) Eos # (Auto) Baso # (Auto) Seg Neutrophils % Seg Neuts % (Manual) Lymphocytes % (Manual) Monocytes % (Manual) Basophils % (Manual) Nucleated RBC % Seg Neutrophils # Seg Neutrophils # Man Lymphocytes # (Manual) Monocytes # (Manual) Eosinophils # (Manual) Basophils # (Manual) PT INR APTT D-Dimer Heparin Anti-Xa Level ABG pH 7.20 L POC ABG pCO2 69.8 H POC ABG pO2 138.9 H 76.1 L ABG pO2 ABG HCO3 ABG O2 Saturation ABG Base Excess ABG Hemoglobin 11.9 L 8.4 L ABG Oxyhemoglobin ABG Sodium 133.1 L 131.2 L ABG Potassium 5.0 H 4.7 H ABG Chloride ABG Glucose 120 H 102 H Oxyhemoglobin Carboxyhemoglobin Sodium Potassium Chloride Carbon Dioxide BUN Creatinine Glucose POC Glucose 118 H Lactic Acid Calcium Phosphorus Magnesium Ferritin Direct Bilirubin AST ALT Alkaline Phosphatase Lactate Dehydrogenase Total Creatine Kinase C-Reactive Protein Total Protein Albumin Triglycerides Arterial Blood Glucose 120 H 102 H Arterial Blood Ionized Calcium 4.4 L 4.3 L Urine Creatinine Urine Chloride Vancomycin Trough Coronavirus (PCR) Crossmatch 07/09/20 07/09/20 07/09/20 11:51 17:04 21:00 WBC RBC Hgb Hct MCHC RDW Plt Count Lymph % (Auto) [place] % (Auto) Lymph # (Auto) [place] # (Auto) Eos # (Auto) Baso # (Auto) Seg Neutrophils % Seg Neuts % (Manual) Lymphocytes % (Manual) Monocytes % (Manual) Basophils % (Manual) Nucleated RBC % Seg Neutrophils # Seg Neutrophils # Man Lymphocytes # (Manual) Monocytes # (Manual) Eosinophils # (Manual) Basophils # (Manual) PT INR APTT D-Dimer Heparin Anti-Xa Level ABG pH POC ABG pCO2 POC ABG pO2 114.2 H ABG pO2 ABG HCO3 ABG O2 Saturation ABG Base Excess ABG Hemoglobin 7.8 L ABG Oxyhemoglobin ABG Sodium 132.3 L ABG Potassium 4.6 H ABG Chloride ABG Glucose Oxyhemoglobin Carboxyhemoglobin Sodium Potassium Chloride Carbon Dioxide BUN Creatinine Glucose POC Glucose 113 H 111 H Lactic Acid Calcium Phosphorus Magnesium Ferritin Direct Bilirubin AST ALT Alkaline Phosphatase Lactate Dehydrogenase Total Creatine Kinase C-Reactive Protein Total Protein Albumin Triglycerides Arterial Blood Glucose Arterial Blood Ionized Calcium 4.4 L Urine Creatinine Urine Chloride Vancomycin Trough Coronavirus (PCR) Crossmatch 07/10/20 07/10/20 07/10/20 03:49 03:55 03:55 WBC 18.1 H RBC 2.37 L Hgb 6.8 L Hct 20.7 L MCHC RDW 16.9 H Plt Count Lymph % (Auto) [place] % (Auto) Lymph # (Auto) [place] # (Auto) Eos # (Auto) Baso # (Auto) Seg Neutrophils % Seg Neuts % (Manual) 79.0 H Lymphocytes % (Manual) 10.0 L Monocytes % (Manual) Basophils % (Manual) Nucleated RBC % 1.0 H Seg Neutrophils # Seg Neutrophils # Man 14.3 H Lymphocytes # (Manual) Monocytes # (Manual) Eosinophils # (Manual) 0.7 H Basophils # (Manual) PT INR APTT D-Dimer Heparin Anti-Xa Level ABG pH POC ABG pCO2 POC ABG pO2 ABG pO2 ABG HCO3 ABG O2 Saturation ABG Base Excess ABG Hemoglobin 7.7 L ABG Oxyhemoglobin ABG Sodium 130.3 L ABG Potassium 4.6 H ABG Chloride ABG Glucose Oxyhemoglobin Carboxyhemoglobin Sodium 136 L Potassium Chloride 96.0 L Carbon Dioxide BUN 76 H Creatinine 3.6 H Glucose POC Glucose Lactic Acid Calcium 7.4 L Phosphorus Magnesium Ferritin Direct Bilirubin AST ALT Alkaline Phosphatase Lactate Dehydrogenase Total Creatine Kinase C-Reactive Protein Total Protein Albumin Triglycerides Arterial Blood Glucose Arterial Blood Ionized Calcium 4.2 L Urine Creatinine Urine Chloride Vancomycin Trough Coronavirus (PCR) Crossmatch 07/10/20 07/11/20 07/11/20 13:24 04:08 06:52 WBC 26.0 H RBC 2.91 L Hgb 8.2 L Hct 24.8 L MCHC RDW 17.2 H Plt Count Lymph % (Auto) [place] % (Auto) Lymph # (Auto) [place] # (Auto) Eos # (Auto) Baso # (Auto) Seg Neutrophils % Seg Neuts % (Manual) Lymphocytes % (Manual) 1.0 L Monocytes % (Manual) 11.0 H Basophils % (Manual) Nucleated RBC % Seg Neutrophils # Seg Neutrophils # Man 16.9 H Lymphocytes # (Manual) 0.3 L Monocytes # (Manual) 2.9 H Eosinophils # (Manual) 1.0 H Basophils # (Manual) PT INR APTT D-Dimer Heparin Anti-Xa Level ABG pH POC ABG pCO2 POC ABG pO2 ABG pO2 ABG HCO3 ABG O2 Saturation ABG Base Excess ABG Hemoglobin 8.5 L ABG Oxyhemoglobin ABG Sodium 130.6 L ABG Potassium 4.9 H ABG Chloride ABG Glucose 105 H Oxyhemoglobin Carboxyhemoglobin Sodium Potassium Chloride Carbon Dioxide BUN Creatinine Glucose POC Glucose Lactic Acid Calcium Phosphorus Magnesium Ferritin Direct Bilirubin AST ALT Alkaline Phosphatase Lactate Dehydrogenase Total Creatine Kinase C-Reactive Protein Total Protein Albumin Triglycerides Arterial Blood Glucose 105 H Arterial Blood Ionized Calcium 4.1 L Urine Creatinine Urine Chloride Vancomycin Trough Coronavirus (PCR) Crossmatch See Detail 07/11/20 07/11/20 07/11/20 06:52 08:48 11:39 WBC RBC Hgb Hct MCHC RDW Plt Count Lymph % (Auto) [place] % (Auto) Lymph # (Auto) [place] # (Auto) Eos # (Auto) Baso # (Auto) Seg Neutrophils % Seg Neuts % (Manual) Lymphocytes % (Manual) Monocytes % (Manual) Basophils % (Manual) Nucleated RBC % Seg Neutrophils # Seg Neutrophils # Man Lymphocytes # (Manual) Monocytes # (Manual) Eosinophils # (Manual) Basophils # (Manual) PT INR APTT D-Dimer Heparin Anti-Xa Level ABG pH POC ABG pCO2 POC ABG pO2 ABG pO2 ABG HCO3 ABG O2 Saturation ABG Base Excess ABG Hemoglobin ABG Oxyhemoglobin ABG Sodium ABG Potassium ABG Chloride ABG Glucose Oxyhemoglobin Carboxyhemoglobin Sodium 133 L 134 L Potassium 5.3 H Chloride 93.5 L 94.8 L Carbon Dioxide BUN 101 H 99 H Creatinine 4.5 H 4.6 H Glucose 102 H POC Glucose 116 H Lactic Acid Calcium 7.8 L 7.6 L Phosphorus Magnesium Ferritin Direct Bilirubin AST ALT Alkaline Phosphatase Lactate Dehydrogenase Total Creatine Kinase C-Reactive Protein Total Protein Albumin Triglycerides Arterial Blood Glucose Arterial Blood Ionized Calcium Urine Creatinine Urine Chloride Vancomycin Trough Coronavirus (PCR) Crossmatch 07/11/20 07/12/20 07/12/20 17:23 00:04 03:20 WBC RBC Hgb Hct MCHC RDW Plt Count Lymph % (Auto) [place] % (Auto) Lymph # (Auto) [place] # (Auto) Eos # (Auto) Baso # (Auto) Seg Neutrophils % Seg Neuts % (Manual) Lymphocytes % (Manual) Monocytes % (Manual) Basophils % (Manual) Nucleated RBC % Seg Neutrophils # Seg Neutrophils # Man Lymphocytes # (Manual) Monocytes # (Manual) Eosinophils # (Manual) Basophils # (Manual) PT INR APTT D-Dimer Heparin Anti-Xa Level ABG pH POC ABG pCO2 49.1 H POC ABG pO2 130.3 H ABG pO2 ABG HCO3 ABG O2 Saturation ABG Base Excess ABG Hemoglobin 8.7 L ABG Oxyhemoglobin ABG Sodium 135.2 L ABG Potassium 4.7 H ABG Chloride ABG Glucose 128 H Oxyhemoglobin Carboxyhemoglobin Sodium Potassium Chloride Carbon Dioxide BUN Creatinine Glucose POC Glucose 142 H 113 H Lactic Acid Calcium Phosphorus Magnesium Ferritin Direct Bilirubin AST ALT Alkaline Phosphatase Lactate Dehydrogenase Total Creatine Kinase C-Reactive Protein Total Protein Albumin Triglycerides Arterial Blood Glucose 128 H Arterial Blood Ionized Calcium 4.4 L Urine Creatinine Urine Chloride Vancomycin Trough Coronavirus (PCR) Crossmatch 07/12/20 07/12/20 07/12/20 03:40 03:40 04:00 WBC 24.3 H RBC 2.83 L Hgb 8.0 L Hct 24.9 L MCHC RDW 17.7 H Plt Count Lymph % (Auto) 5.6 L [place] % (Auto) 7.4 H Lymph # (Auto) [place] # (Auto) 1.8 H Eos # (Auto) 0.7 H Baso # (Auto) Seg Neutrophils % 83.9 H Seg Neuts % (Manual) Lymphocytes % (Manual) Monocytes % (Manual) Basophils % (Manual) Nucleated RBC % Seg Neutrophils # 20.4 H Seg Neutrophils # Man Lymphocytes # (Manual) Monocytes # (Manual) Eosinophils # (Manual) Basophils # (Manual) PT INR APTT D-Dimer Heparin Anti-Xa Level ABG pH POC ABG pCO2 POC ABG pO2 ABG pO2 ABG HCO3 ABG O2 Saturation ABG Base Excess ABG Hemoglobin ABG Oxyhemoglobin ABG Sodium ABG Potassium ABG Chloride ABG Glucose Oxyhemoglobin Carboxyhemoglobin Sodium 134 L Potassium Chloride 95.5 L Carbon Dioxide BUN 79 H Creatinine 3.7 H Glucose 127 H POC Glucose Lactic Acid Calcium 7.8 L Phosphorus Magnesium Ferritin Direct Bilirubin AST ALT Alkaline Phosphatase Lactate Dehydrogenase Total Creatine Kinase C-Reactive Protein Total Protein Albumin Triglycerides 246 H Arterial Blood Glucose Arterial Blood Ionized Calcium Urine Creatinine Urine Chloride Vancomycin Trough Coronavirus (PCR) Crossmatch 07/12/20 07/12/20 07/12/20 05:48 11:50 17:29 WBC RBC Hgb Hct MCHC RDW Plt Count Lymph % (Auto) [place] % (Auto) Lymph # (Auto) [place] # (Auto) Eos # (Auto) Baso # (Auto) Seg Neutrophils % Seg Neuts % (Manual) Lymphocytes % (Manual) Monocytes % (Manual) Basophils % (Manual) Nucleated RBC % Seg Neutrophils # Seg Neutrophils # Man Lymphocytes # (Manual) Monocytes # (Manual) Eosinophils # (Manual) Basophils # (Manual) PT INR APTT D-Dimer Heparin Anti-Xa Level ABG pH POC ABG pCO2 POC ABG pO2 ABG pO2 ABG HCO3 ABG O2 Saturation ABG Base Excess ABG Hemoglobin ABG Oxyhemoglobin ABG Sodium ABG Potassium ABG Chloride ABG Glucose Oxyhemoglobin Carboxyhemoglobin Sodium Potassium Chloride Carbon Dioxide BUN Creatinine Glucose POC Glucose 136 H 113 H 110 H Lactic Acid Calcium Phosphorus Magnesium Ferritin Direct Bilirubin AST ALT Alkaline Phosphatase Lactate Dehydrogenase Total Creatine Kinase C-Reactive Protein Total Protein Albumin Triglycerides Arterial Blood Glucose Arterial Blood Ionized Calcium Urine Creatinine Urine Chloride Vancomycin Trough Coronavirus (PCR) Crossmatch 07/12/20 07/13/20 07/13/20 23:43 03:11 06:59 WBC RBC Hgb Hct MCHC RDW Plt Count Lymph % (Auto) [place] % (Auto) Lymph # (Auto) [place] # (Auto) Eos # (Auto) Baso # (Auto) Seg Neutrophils % Seg Neuts % (Manual) Lymphocytes % (Manual) Monocytes % (Manual) Basophils % (Manual) Nucleated RBC % Seg Neutrophils # Seg Neutrophils # Man Lymphocytes # (Manual) Monocytes # (Manual) Eosinophils # (Manual) Basophils # (Manual) PT INR APTT D-Dimer Heparin Anti-Xa Level ABG pH POC ABG pCO2 49.0 H POC ABG pO2 69.6 L ABG pO2 ABG HCO3 ABG O2 Saturation ABG Base Excess ABG Hemoglobin 8.5 L ABG Oxyhemoglobin 90.5 L ABG Sodium 133.6 L ABG Potassium 5.1 H ABG Chloride ABG Glucose 104 H Oxyhemoglobin Carboxyhemoglobin Sodium 133 L Potassium 5.7 H Chloride 96.3 L Carbon Dioxide 20 L D BUN 102 H Creatinine 4.4 H Glucose 101 H POC Glucose 120 H Lactic Acid Calcium 7.9 L Phosphorus Magnesium Ferritin Direct Bilirubin AST 61 H ALT 85 H Alkaline Phosphatase 144 H Lactate Dehydrogenase Total Creatine Kinase C-Reactive Protein Total Protein 5.4 L Albumin 2.0 L Triglycerides Arterial Blood Glucose 104 H Arterial Blood Ionized Calcium 4.3 L Urine Creatinine Urine Chloride Vancomycin Trough Coronavirus (PCR) Crossmatch 07/13/20 07/13/20 07/13/20 08:48 12:14 15:12 WBC 27.5 H RBC 3.03 L Hgb 8.7 L Hct 27.0 L MCHC RDW 18.0 H Plt Count Lymph % (Auto) [place] % (Auto) Lymph # (Auto) [place] # (Auto) Eos # (Auto) Baso # (Auto) Seg Neutrophils % Seg Neuts % (Manual) Lymphocytes % (Manual) Monocytes % (Manual) Basophils % (Manual) Nucleated RBC % Seg Neutrophils # Seg Neutrophils # Man Lymphocytes # (Manual) Monocytes # (Manual) Eosinophils # (Manual) Basophils # (Manual) PT INR APTT D-Dimer Heparin Anti-Xa Level ABG pH POC ABG pCO2 POC ABG pO2 ABG pO2 ABG HCO3 ABG O2 Saturation ABG Base Excess ABG Hemoglobin ABG Oxyhemoglobin ABG Sodium ABG Potassium ABG Chloride ABG Glucose Oxyhemoglobin Carboxyhemoglobin Sodium Potassium 5.5 H Chloride Carbon Dioxide BUN 88 H Creatinine 3.8 H Glucose 133 H POC Glucose 134 H Lactic Acid Calcium 7.5 L Phosphorus Magnesium Ferritin Direct Bilirubin AST ALT Alkaline Phosphatase Lactate Dehydrogenase Total Creatine Kinase C-Reactive Protein Total Protein Albumin Triglycerides Arterial Blood Glucose Arterial Blood Ionized Calcium Urine Creatinine Urine Chloride Vancomycin Trough Coronavirus (PCR) Crossmatch 07/13/20 07/13/20 07/13/20 16:46 16:47 18:46 WBC RBC Hgb 7.4 L Hct 22.1 L MCHC RDW Plt Count Lymph % (Auto) [place] % (Auto) Lymph # (Auto) [place] # (Auto) Eos # (Auto) Baso # (Auto) Seg Neutrophils % Seg Neuts % (Manual) Lymphocytes % (Manual) Monocytes % (Manual) Basophils % (Manual) Nucleated RBC % Seg Neutrophils # Seg Neutrophils # Man Lymphocytes # (Manual) Monocytes # (Manual) Eosinophils # (Manual) Basophils # (Manual) PT INR APTT D-Dimer Heparin Anti-Xa Level ABG pH POC ABG pCO2 POC ABG pO2 ABG pO2 ABG HCO3 ABG O2 Saturation ABG Base Excess ABG Hemoglobin ABG Oxyhemoglobin ABG Sodium ABG Potassium ABG Chloride ABG Glucose Oxyhemoglobin Carboxyhemoglobin Sodium Potassium Chloride Carbon Dioxide BUN Creatinine Glucose POC Glucose 118 H Lactic Acid Calcium Phosphorus Magnesium Ferritin Direct Bilirubin AST ALT Alkaline Phosphatase Lactate Dehydrogenase Total Creatine Kinase C-Reactive Protein Total Protein Albumin Triglycerides Arterial Blood Glucose Arterial Blood Ionized Calcium Urine Creatinine Urine Chloride Vancomycin Trough Coronavirus (PCR) Crossmatch See Detail 07/13/20 07/14/20 07/14/20 23:34 04:25 12:21 WBC RBC Hgb Hct MCHC RDW Plt Count Lymph % (Auto) [place] % (Auto) Lymph # (Auto) [place] # (Auto) Eos # (Auto) Baso # (Auto) Seg Neutrophils % Seg Neuts % (Manual) Lymphocytes % (Manual) Monocytes % (Manual) Basophils % (Manual) Nucleated RBC % Seg Neutrophils # Seg Neutrophils # Man Lymphocytes # (Manual) Monocytes # (Manual) Eosinophils # (Manual) Basophils # (Manual) PT INR APTT D-Dimer Heparin Anti-Xa Level ABG pH POC ABG pCO2 POC ABG pO2 ABG pO2 ABG HCO3 ABG O2 Saturation ABG Base Excess ABG Hemoglobin 8.9 L ABG Oxyhemoglobin ABG Sodium 133.1 L ABG Potassium 4.7 H ABG Chloride ABG Glucose 113 H Oxyhemoglobin Carboxyhemoglobin Sodium Potassium Chloride Carbon Dioxide BUN Creatinine Glucose POC Glucose 109 H 109 H Lactic Acid Calcium Phosphorus Magnesium Ferritin Direct Bilirubin AST ALT Alkaline Phosphatase Lactate Dehydrogenase Total Creatine Kinase C-Reactive Protein Total Protein Albumin Triglycerides Arterial Blood Glucose 113 H Arterial Blood Ionized Calcium 4.4 L Urine Creatinine Urine Chloride Vancomycin Trough Coronavirus (PCR) Crossmatch 07/14/20 07/14/20 07/14/20 16:44 16:44 20:20 WBC 30.1 H RBC 2.60 L Hgb 7.4 L 5.6 L* Hct 23.0 L 18.1 L* MCHC RDW 18.0 H Plt Count Lymph % (Auto) [place] % (Auto) Lymph # (Auto) [place] # (Auto) Eos # (Auto) Baso # (Auto) Seg Neutrophils % Seg Neuts % (Manual) 78.0 H Lymphocytes % (Manual) 5.0 L Monocytes % (Manual) Basophils % (Manual) Nucleated RBC % Seg Neutrophils # Seg Neutrophils # Man 23.5 H Lymphocytes # (Manual) Monocytes # (Manual) 0.9 H Eosinophils # (Manual) Basophils # (Manual) PT 15.6 H INR 1.26 H APTT D-Dimer Heparin Anti-Xa Level ABG pH POC ABG pCO2 POC ABG pO2 ABG pO2 ABG HCO3 ABG O2 Saturation ABG Base Excess ABG Hemoglobin ABG Oxyhemoglobin ABG Sodium ABG Potassium ABG Chloride ABG Glucose Oxyhemoglobin Carboxyhemoglobin Sodium Potassium Chloride Carbon Dioxide BUN Creatinine Glucose POC Glucose Lactic Acid Calcium Phosphorus Magnesium Ferritin Direct Bilirubin AST ALT Alkaline Phosphatase Lactate Dehydrogenase Total Creatine Kinase C-Reactive Protein Total Protein Albumin Triglycerides Arterial Blood Glucose Arterial Blood Ionized Calcium Urine Creatinine Urine Chloride Vancomycin Trough Coronavirus (PCR) Crossmatch 07/14/20 07/14/20 07/15/20 21:19 23:45 04:13 WBC RBC Hgb Hct MCHC RDW Plt Count Lymph % (Auto) [place] % (Auto) Lymph # (Auto) [place] # (Auto) Eos # (Auto) Baso # (Auto) Seg Neutrophils % Seg Neuts % (Manual) Lymphocytes % (Manual) Monocytes % (Manual) Basophils % (Manual) Nucleated RBC % Seg Neutrophils # Seg Neutrophils # Man Lymphocytes # (Manual) Monocytes # (Manual) Eosinophils # (Manual) Basophils # (Manual) PT INR APTT D-Dimer Heparin Anti-Xa Level ABG pH POC ABG pCO2 POC ABG pO2 ABG pO2 ABG HCO3 ABG O2 Saturation ABG Base Excess ABG Hemoglobin 5.8 L 6.0 L ABG Oxyhemoglobin 93.8 L ABG Sodium 132.2 L 130.3 L ABG Potassium 5.5 H 5.8 H ABG Chloride ABG Glucose 118 H 122 H Oxyhemoglobin Carboxyhemoglobin Sodium Potassium Chloride Carbon Dioxide BUN Creatinine Glucose POC Glucose 126 H Lactic Acid Calcium Phosphorus Magnesium Ferritin Direct Bilirubin AST ALT Alkaline Phosphatase Lactate Dehydrogenase Total Creatine Kinase C-Reactive Protein Total Protein Albumin Triglycerides Arterial Blood Glucose 118 H 122 H Arterial Blood Ionized Calcium 4.3 L 4.2 L Urine Creatinine Urine Chloride Vancomycin Trough Coronavirus (PCR) Crossmatch 07/15/20 07/15/20 07/15/20 08:21 08:21 08:38 WBC 45.5 H* RBC 2.42 L Hgb 7.1 L Hct 21.5 L MCHC RDW 16.5 H Plt Count Lymph % (Auto) [place] % (Auto) Lymph # (Auto) [place] # (Auto) Eos # (Auto) Baso # (Auto) Seg Neutrophils % Seg Neuts % (Manual) 89.0 H Lymphocytes % (Manual) 7.0 L Monocytes % (Manual) Basophils % (Manual) Nucleated RBC % Seg Neutrophils # Seg Neutrophils # Man 40.5 H Lymphocytes # (Manual) Monocytes # (Manual) 1.8 H Eosinophils # (Manual) Basophils # (Manual) PT 17.6 H INR 1.46 H APTT D-Dimer Heparin Anti-Xa Level ABG pH POC ABG pCO2 POC ABG pO2 ABG pO2 ABG HCO3 ABG O2 Saturation ABG Base Excess ABG Hemoglobin ABG Oxyhemoglobin ABG Sodium ABG Potassium ABG Chloride ABG Glucose Oxyhemoglobin Carboxyhemoglobin Sodium 131 L Potassium 6.0 H Chloride 94.6 L Carbon Dioxide 20 L BUN 116 H Creatinine 4.6 H Glucose 123 H POC Glucose Lactic Acid Calcium 7.6 L Phosphorus Magnesium Ferritin Direct Bilirubin AST ALT Alkaline Phosphatase Lactate Dehydrogenase Total Creatine Kinase C-Reactive Protein Total Protein Albumin Triglycerides Arterial Blood Glucose Arterial Blood Ionized Calcium Urine Creatinine Urine Chloride Vancomycin Trough Coronavirus (PCR) Crossmatch 07/15/20 07/15/20 07/15/20 11:29 17:23 18:52 WBC RBC Hgb Hct MCHC RDW Plt Count Lymph % (Auto) [place] % (Auto) Lymph # (Auto) [place] # (Auto) Eos # (Auto) Baso # (Auto) Seg Neutrophils % Seg Neuts % (Manual) Lymphocytes % (Manual) Monocytes % (Manual) Basophils % (Manual) Nucleated RBC % Seg Neutrophils # Seg Neutrophils # Man Lymphocytes # (Manual) Monocytes # (Manual) Eosinophils # (Manual) Basophils # (Manual) PT INR APTT D-Dimer Heparin Anti-Xa Level ABG pH POC ABG pCO2 POC ABG pO2 ABG pO2 ABG HCO3 ABG O2 Saturation ABG Base Excess ABG Hemoglobin ABG Oxyhemoglobin ABG Sodium ABG Potassium ABG Chloride ABG Glucose Oxyhemoglobin Carboxyhemoglobin Sodium Potassium Chloride 97.9 L Carbon Dioxide BUN 78 H Creatinine 3.1 H Glucose 114 H POC Glucose 181 H 120 H Lactic Acid Calcium 7.3 L Phosphorus Magnesium Ferritin Direct Bilirubin AST ALT Alkaline Phosphatase Lactate Dehydrogenase Total Creatine Kinase C-Reactive Protein Total Protein Albumin Triglycerides Arterial Blood Glucose Arterial Blood Ionized Calcium Urine Creatinine Urine Chloride Vancomycin Trough Coronavirus (PCR) Crossmatch 07/15/20 07/16/20 07/16/20 18:52 01:10 03:38 WBC RBC Hgb 9.9 L 8.5 L Hct 29.8 L D 24.7 L MCHC RDW Plt Count Lymph % (Auto) [place] % (Auto) Lymph # (Auto) [place] # (Auto) Eos # (Auto) Baso # (Auto) Seg Neutrophils % Seg Neuts % (Manual) Lymphocytes % (Manual) Monocytes % (Manual) Basophils % (Manual) Nucleated RBC % Seg Neutrophils # Seg Neutrophils # Man Lymphocytes # (Manual) Monocytes # (Manual) Eosinophils # (Manual) Basophils # (Manual) PT INR APTT D-Dimer Heparin Anti-Xa Level ABG pH 7.314 L POC ABG pCO2 48.5 H POC ABG pO2 58.9 L ABG pO2 ABG HCO3 ABG O2 Saturation ABG Base Excess ABG Hemoglobin 8.7 L ABG Oxyhemoglobin 86.7 L ABG Sodium 132.7 L ABG Potassium 5.2 H ABG Chloride ABG Glucose 99 H Oxyhemoglobin Carboxyhemoglobin Sodium Potassium Chloride Carbon Dioxide BUN Creatinine Glucose POC Glucose Lactic Acid Calcium Phosphorus Magnesium Ferritin Direct Bilirubin AST ALT Alkaline Phosphatase Lactate Dehydrogenase Total Creatine Kinase C-Reactive Protein Total Protein Albumin Triglycerides Arterial Blood Glucose 99 H Arterial Blood Ionized Calcium 3.9 L Urine Creatinine Urine Chloride Vancomycin Trough Coronavirus (PCR) Crossmatch 07/16/20 07/16/20 07/16/20 04:28 04:28 07:29 WBC 48.9 H* RBC 2.86 L Hgb 8.6 L 7.9 L Hct 25.4 L 24.4 L MCHC RDW 15.6 H Plt Count Lymph % (Auto) [place] % (Auto) Lymph # (Auto) [place] # (Auto) Eos # (Auto) Baso # (Auto) Seg Neutrophils % Seg Neuts % (Manual) Lymphocytes % (Manual) Monocytes % (Manual) Basophils % (Manual) Nucleated RBC % Seg Neutrophils # Seg Neutrophils # Man Lymphocytes # (Manual) Monocytes # (Manual) Eosinophils # (Manual) Basophils # (Manual) PT INR APTT D-Dimer Heparin Anti-Xa Level ABG pH POC ABG pCO2 POC ABG pO2 ABG pO2 ABG HCO3 ABG O2 Saturation ABG Base Excess ABG Hemoglobin ABG Oxyhemoglobin ABG Sodium ABG Potassium ABG Chloride ABG Glucose Oxyhemoglobin Carboxyhemoglobin Sodium 136 L Potassium 5.4 H Chloride 95.0 L Carbon Dioxide BUN 85 H Creatinine 3.4 H Glucose 66 L POC Glucose Lactic Acid Calcium 6.8 L Phosphorus Magnesium Ferritin Direct Bilirubin AST ALT Alkaline Phosphatase Lactate Dehydrogenase Total Creatine Kinase C-Reactive Protein Total Protein Albumin Triglycerides Arterial Blood Glucose Arterial Blood Ionized Calcium Urine Creatinine Urine Chloride Vancomycin Trough Coronavirus (PCR) Crossmatch 07/16/20 07/16/20 07/16/20 11:52 18:06 18:08 WBC RBC Hgb 7.4 L Hct 22.5 L MCHC RDW Plt Count Lymph % (Auto) [place] % (Auto) Lymph # (Auto) [place] # (Auto) Eos # (Auto) Baso # (Auto) Seg Neutrophils % Seg Neuts % (Manual) Lymphocytes % (Manual) Monocytes % (Manual) Basophils % (Manual) Nucleated RBC % Seg Neutrophils # Seg Neutrophils # Man Lymphocytes # (Manual) Monocytes # (Manual) Eosinophils # (Manual) Basophils # (Manual) PT INR APTT D-Dimer Heparin Anti-Xa Level ABG pH POC ABG pCO2 POC ABG pO2 ABG pO2 ABG HCO3 ABG O2 Saturation ABG Base Excess ABG Hemoglobin ABG Oxyhemoglobin ABG Sodium ABG Potassium ABG Chloride ABG Glucose Oxyhemoglobin Carboxyhemoglobin Sodium Potassium Chloride Carbon Dioxide BUN Creatinine Glucose POC Glucose 124 H 108 H Lactic Acid Calcium Phosphorus Magnesium Ferritin Direct Bilirubin AST ALT Alkaline Phosphatase Lactate Dehydrogenase Total Creatine Kinase C-Reactive Protein Total Protein Albumin Triglycerides Arterial Blood Glucose Arterial Blood Ionized Calcium Urine Creatinine Urine Chloride Vancomycin Trough Coronavirus (PCR) Crossmatch 07/17/20 07/17/20 07/17/20 03:27 15:25 15:25 WBC 46.2 H* RBC 2.05 L Hgb 6.1 L Hct 18.4 L* MCHC RDW 15.6 H Plt Count Lymph % (Auto) [place] % (Auto) Lymph # (Auto) [place] # (Auto) Eos # (Auto) Baso # (Auto) Seg Neutrophils % Seg Neuts % (Manual) 87.0 H Lymphocytes % (Manual) 3.0 L Monocytes % (Manual) Basophils % (Manual) Nucleated RBC % Seg Neutrophils # Seg Neutrophils # Man 40.2 H Lymphocytes # (Manual) Monocytes # (Manual) 3.2 H Eosinophils # (Manual) Basophils # (Manual) PT 18.2 H INR 1.52 H APTT D-Dimer Heparin Anti-Xa Level ABG pH 7.313 L POC ABG pCO2 50.9 H POC ABG pO2 ABG pO2 ABG HCO3 ABG O2 Saturation ABG Base Excess ABG Hemoglobin 7.5 L ABG Oxyhemoglobin ABG Sodium 131.8 L ABG Potassium 4.6 H ABG Chloride ABG Glucose 105 H Oxyhemoglobin Carboxyhemoglobin Sodium Potassium Chloride Carbon Dioxide BUN Creatinine Glucose POC Glucose Lactic Acid Calcium Phosphorus Magnesium Ferritin Direct Bilirubin AST ALT Alkaline Phosphatase Lactate Dehydrogenase Total Creatine Kinase C-Reactive Protein Total Protein Albumin Triglycerides Arterial Blood Glucose 105 H Arterial Blood Ionized Calcium 3.9 L Urine Creatinine Urine Chloride Vancomycin Trough Coronavirus (PCR) Crossmatch 07/17/20 07/18/20 07/18/20 Unknown 03:10 05:06 WBC 37.9 H RBC 2.91 L Hgb 8.5 L Hct 25.6 L D MCHC RDW Plt Count Lymph % (Auto) [place] % (Auto) Lymph # (Auto) [place] # (Auto) Eos # (Auto) Baso # (Auto) Seg Neutrophils % Seg Neuts % (Manual) Lymphocytes % (Manual) Monocytes % (Manual) Basophils % (Manual) Nucleated RBC % Seg Neutrophils # Seg Neutrophils # Man Lymphocytes # (Manual) Monocytes # (Manual) Eosinophils # (Manual) Basophils # (Manual) PT INR APTT D-Dimer Heparin Anti-Xa Level ABG pH POC ABG pCO2 POC ABG pO2 114.9 H ABG pO2 ABG HCO3 ABG O2 Saturation ABG Base Excess ABG Hemoglobin 8.6 L ABG Oxyhemoglobin ABG Sodium 130.6 L ABG Potassium 4.9 H ABG Chloride ABG Glucose Oxyhemoglobin Carboxyhemoglobin Sodium Potassium Chloride Carbon Dioxide BUN Creatinine Glucose POC Glucose Lactic Acid Calcium Phosphorus Magnesium Ferritin Direct Bilirubin AST ALT Alkaline Phosphatase Lactate Dehydrogenase Total Creatine Kinase C-Reactive Protein Total Protein Albumin Triglycerides Arterial Blood Glucose Arterial Blood Ionized Calcium 3.8 L Urine Creatinine Urine Chloride Vancomycin Trough Coronavirus (PCR) Crossmatch See Detail 07/18/20 07/19/20 07/19/20 05:06 00:06 03:57 WBC RBC Hgb Hct MCHC RDW Plt Count Lymph % (Auto) [place] % (Auto) Lymph # (Auto) [place] # (Auto) Eos # (Auto) Baso # (Auto) Seg Neutrophils % Seg Neuts % (Manual) Lymphocytes % (Manual) Monocytes % (Manual) Basophils % (Manual) Nucleated RBC % Seg Neutrophils # Seg Neutrophils # Man Lymphocytes # (Manual) Monocytes # (Manual) Eosinophils # (Manual) Basophils # (Manual) PT INR APTT D-Dimer Heparin Anti-Xa Level ABG pH POC ABG pCO2 POC ABG pO2 ABG pO2 ABG HCO3 ABG O2 Saturation ABG Base Excess ABG Hemoglobin 8.6 L ABG Oxyhemoglobin ABG Sodium 130.4 L ABG Potassium ABG Chloride ABG Glucose Oxyhemoglobin Carboxyhemoglobin Sodium Potassium 5.4 H Chloride Carbon Dioxide BUN 79 H Creatinine 3.2 H Glucose POC Glucose 69 L Lactic Acid Calcium 6.9 L Phosphorus Magnesium Ferritin Direct Bilirubin AST ALT 58 H Alkaline Phosphatase Lactate Dehydrogenase Total Creatine Kinase C-Reactive Protein Total Protein 4.3 L D Albumin 1.7 L Triglycerides 306 H Arterial Blood Glucose Arterial Blood Ionized Calcium 3.9 L Urine Creatinine Urine Chloride Vancomycin Trough Coronavirus (PCR) Crossmatch 07/19/20 07/19/20 07/19/20 05:22 09:15 09:15 WBC 32.5 H RBC 2.57 L Hgb 7.8 L Hct 22.8 L MCHC RDW 15.3 H Plt Count Lymph % (Auto) [place] % (Auto) Lymph # (Auto) [place] # (Auto) Eos # (Auto) Baso # (Auto) Seg Neutrophils % Seg Neuts % (Manual) Lymphocytes % (Manual) Monocytes % (Manual) Basophils % (Manual) Nucleated RBC % Seg Neutrophils # Seg Neutrophils # Man Lymphocytes # (Manual) Monocytes # (Manual) Eosinophils # (Manual) Basophils # (Manual) PT INR APTT D-Dimer Heparin Anti-Xa Level ABG pH POC ABG pCO2 POC ABG pO2 ABG pO2 ABG HCO3 ABG O2 Saturation ABG Base Excess ABG Hemoglobin ABG Oxyhemoglobin ABG Sodium ABG Potassium ABG Chloride ABG Glucose Oxyhemoglobin Carboxyhemoglobin Sodium 135 L Potassium Chloride 96.3 L Carbon Dioxide BUN 61 H Creatinine 2.8 H Glucose POC Glucose 64 L Lactic Acid Calcium 6.8 L Phosphorus Magnesium Ferritin Direct Bilirubin AST 54 H ALT 65 H Alkaline Phosphatase Lactate Dehydrogenase Total Creatine Kinase C-Reactive Protein Total Protein 4.3 L Albumin 1.8 L Triglycerides Arterial Blood Glucose Arterial Blood Ionized Calcium Urine Creatinine Urine Chloride Vancomycin Trough Coronavirus (PCR) Crossmatch 07/20/20 07/20/20 07/20/20 05:20 06:00 06:07 WBC 28.1 H RBC 2.53 L Hgb 7.7 L Hct 22.7 L MCHC RDW 15.5 H Plt Count Lymph % (Auto) [place] % (Auto) Lymph # (Auto) [place] # (Auto) Eos # (Auto) Baso # (Auto) Seg Neutrophils % Seg Neuts % (Manual) Lymphocytes % (Manual) Monocytes % (Manual) Basophils % (Manual) Nucleated RBC % Seg Neutrophils # Seg Neutrophils # Man Lymphocytes # (Manual) Monocytes # (Manual) Eosinophils # (Manual) Basophils # (Manual) PT INR APTT D-Dimer Heparin Anti-Xa Level ABG pH POC ABG pCO2 POC ABG pO2 ABG pO2 ABG HCO3 ABG O2 Saturation ABG Base Excess ABG Hemoglobin 6.3 L ABG Oxyhemoglobin ABG Sodium 130.0 L ABG Potassium ABG Chloride ABG Glucose 114 H Oxyhemoglobin Carboxyhemoglobin Sodium Potassium Chloride Carbon Dioxide BUN Creatinine Glucose POC Glucose 110 H Lactic Acid Calcium Phosphorus Magnesium Ferritin Direct Bilirubin AST ALT Alkaline Phosphatase Lactate Dehydrogenase Total Creatine Kinase C-Reactive Protein Total Protein Albumin Triglycerides Arterial Blood Glucose 114 H Arterial Blood Ionized Calcium 3.9 L Urine Creatinine Urine Chloride Vancomycin Trough Coronavirus (PCR) Crossmatch 07/20/20 07/21/20 07/21/20 17:19 05:02 05:40 WBC 32.9 H RBC 2.78 L Hgb 8.5 L Hct 25.2 L MCHC RDW 15.7 H Plt Count 74 L Lymph % (Auto) [place] % (Auto) Lymph # (Auto) [place] # (Auto) Eos # (Auto) Baso # (Auto) Seg Neutrophils % Seg Neuts % (Manual) Lymphocytes % (Manual) Monocytes % (Manual) Basophils % (Manual) Nucleated RBC % Seg Neutrophils # Seg Neutrophils # Man Lymphocytes # (Manual) Monocytes # (Manual) Eosinophils # (Manual) Basophils # (Manual) PT INR APTT D-Dimer Heparin Anti-Xa Level ABG pH POC ABG pCO2 POC ABG pO2 73.2 L ABG pO2 ABG HCO3 ABG O2 Saturation ABG Base Excess ABG Hemoglobin 9.1 L ABG Oxyhemoglobin 93.4 L ABG Sodium ABG Potassium 3.1 L ABG Chloride ABG Glucose 112 H Oxyhemoglobin Carboxyhemoglobin Sodium Potassium Chloride Carbon Dioxide BUN Creatinine Glucose POC Glucose 137 H Lactic Acid Calcium Phosphorus Magnesium Ferritin Direct Bilirubin AST ALT Alkaline Phosphatase Lactate Dehydrogenase Total Creatine Kinase C-Reactive Protein Total Protein Albumin Triglycerides Arterial Blood Glucose 112 H Arterial Blood Ionized Calcium Urine Creatinine Urine Chloride Vancomycin Trough Coronavirus (PCR) Crossmatch 07/22/20 07/22/20 07/22/20 04:11 16:00 16:00 WBC 38.7 H RBC 2.72 L Hgb 8.1 L Hct 24.5 L MCHC RDW 16.1 H Plt Count Lymph % (Auto) [place] % (Auto) Lymph # (Auto) [place] # (Auto) Eos # (Auto) Baso # (Auto) Seg Neutrophils % Seg Neuts % (Manual) Lymphocytes % (Manual) Monocytes % (Manual) Basophils % (Manual) Nucleated RBC % Seg Neutrophils # Seg Neutrophils # Man Lymphocytes # (Manual) Monocytes # (Manual) Eosinophils # (Manual) Basophils # (Manual) PT INR APTT D-Dimer Heparin Anti-Xa Level ABG pH POC ABG pCO2 POC ABG pO2 67.7 L ABG pO2 ABG HCO3 ABG O2 Saturation ABG Base Excess ABG Hemoglobin 7.4 L ABG Oxyhemoglobin 91.7 L ABG Sodium ABG Potassium 2.9 L ABG Chloride ABG Glucose 105 H Oxyhemoglobin Carboxyhemoglobin Sodium Potassium Chloride Carbon Dioxide BUN Creatinine Glucose POC Glucose Lactic Acid Calcium Phosphorus Magnesium Ferritin Direct Bilirubin AST ALT Alkaline Phosphatase Lactate Dehydrogenase Total Creatine Kinase C-Reactive Protein Total Protein Albumin Triglycerides 197 H Arterial Blood Glucose 105 H Arterial Blood Ionized Calcium Urine Creatinine Urine Chloride Vancomycin Trough Coronavirus (PCR) Crossmatch 07/23/20 07/23/20 07/23/20 04:56 11:49 Unknown WBC RBC Hgb Hct MCHC RDW Plt Count Lymph % (Auto) [place] % (Auto) Lymph # (Auto) [place] # (Auto) Eos # (Auto) Baso # (Auto) Seg Neutrophils % Seg Neuts % (Manual) Lymphocytes % (Manual) Monocytes % (Manual) Basophils % (Manual) Nucleated RBC % Seg Neutrophils # Seg Neutrophils # Man Lymphocytes # (Manual) Monocytes # (Manual) Eosinophils # (Manual) Basophils # (Manual) PT INR APTT D-Dimer Heparin Anti-Xa Level ABG pH POC ABG pCO2 POC ABG pO2 75.7 L ABG pO2 ABG HCO3 ABG O2 Saturation ABG Base Excess ABG Hemoglobin 9.3 L ABG Oxyhemoglobin ABG Sodium ABG Potassium 3.1 L ABG Chloride 108.0 H ABG Glucose 101 H Oxyhemoglobin Carboxyhemoglobin Sodium Potassium 3.1 L D Chloride Carbon Dioxide BUN 36 H Creatinine 2.1 H Glucose 103 H POC Glucose 107 H Lactic Acid Calcium Phosphorus Magnesium Ferritin Direct Bilirubin AST ALT Alkaline Phosphatase Lactate Dehydrogenase Total Creatine Kinase C-Reactive Protein Total Protein Albumin Triglycerides Arterial Blood Glucose 101 H Arterial Blood Ionized Calcium Urine Creatinine Urine Chloride Vancomycin Trough Coronavirus (PCR) Crossmatch 07/24/20 07/24/20 07/24/20 06:40 06:40 20:38 WBC 31.4 H RBC 2.37 L Hgb 7.2 L Hct 21.7 L MCHC RDW 17.0 H Plt Count Lymph % (Auto) [place] % (Auto) Lymph # (Auto) [place] # (Auto) Eos # (Auto) Baso # (Auto) Seg Neutrophils % Seg Neuts % (Manual) 85.0 H Lymphocytes % (Manual) 6.0 L Monocytes % (Manual) Basophils % (Manual) Nucleated RBC % Seg Neutrophils # Seg Neutrophils # Man 26.7 H Lymphocytes # (Manual) Monocytes # (Manual) 0.9 H Eosinophils # (Manual) Basophils # (Manual) 0.3 H PT INR APTT D-Dimer Heparin Anti-Xa Level ABG pH POC ABG pCO2 POC ABG pO2 ABG pO2 ABG HCO3 ABG O2 Saturation ABG Base Excess ABG Hemoglobin ABG Oxyhemoglobin ABG Sodium ABG Potassium ABG Chloride ABG Glucose Oxyhemoglobin Carboxyhemoglobin Sodium Potassium 3.1 L Chloride Carbon Dioxide BUN 46 H Creatinine 2.5 H Glucose 109 H POC Glucose Lactic Acid Calcium Phosphorus Magnesium Ferritin Direct Bilirubin AST 46 H ALT 74 H Alkaline Phosphatase 180 H Lactate Dehydrogenase Total Creatine Kinase C-Reactive Protein Total Protein 4.6 L Albumin 2.0 L Triglycerides Arterial Blood Glucose Arterial Blood Ionized Calcium Urine Creatinine Urine Chloride Vancomycin Trough Coronavirus (PCR) Crossmatch See Detail 07/24/20 07/25/20 07/25/20 20:40 05:39 05:39 WBC 26.6 H RBC 2.79 L Hgb 8.5 L Hct 25.6 L MCHC RDW 16.1 H Plt Count Lymph % (Auto) [place] % (Auto) Lymph # (Auto) [place] # (Auto) Eos # (Auto) Baso # (Auto) Seg Neutrophils % Seg Neuts % (Manual) 72.0 H Lymphocytes % (Manual) 2.0 L Monocytes % (Manual) Basophils % (Manual) 3.0 H Nucleated RBC % 1.0 H Seg Neutrophils # Seg Neutrophils # Man 19.2 H Lymphocytes # (Manual) 0.5 L Monocytes # (Manual) 1.6 H Eosinophils # (Manual) 0.5 H Basophils # (Manual) 0.8 H PT 15.3 H INR 1.21 H APTT D-Dimer Heparin Anti-Xa Level ABG pH POC ABG pCO2 POC ABG pO2 ABG pO2 ABG HCO3 ABG O2 Saturation ABG Base Excess ABG Hemoglobin ABG Oxyhemoglobin ABG Sodium ABG Potassium ABG Chloride ABG Glucose Oxyhemoglobin Carboxyhemoglobin Sodium Potassium Chloride Carbon Dioxide BUN 55 H Creatinine 2.9 H Glucose POC Glucose Lactic Acid Calcium Phosphorus Magnesium Ferritin Direct Bilirubin AST ALT Alkaline Phosphatase Lactate Dehydrogenase Total Creatine Kinase C-Reactive Protein Total Protein Albumin Triglycerides Arterial Blood Glucose Arterial Blood Ionized Calcium Urine Creatinine Urine Chloride Vancomycin Trough Coronavirus (PCR) Crossmatch 07/25/20 07/26/20 07/26/20 17:22 08:46 08:46 WBC RBC Hgb Hct MCHC RDW Plt Count Lymph % (Auto) [place] % (Auto) Lymph # (Auto) [place] # (Auto) Eos # (Auto) Baso # (Auto) Seg Neutrophils % Seg Neuts % (Manual) Lymphocytes % (Manual) Monocytes % (Manual) Basophils % (Manual) Nucleated RBC % Seg Neutrophils # Seg Neutrophils # Man Lymphocytes # (Manual) Monocytes # (Manual) Eosinophils # (Manual) Basophils # (Manual) PT INR APTT D-Dimer Heparin Anti-Xa Level ABG pH POC ABG pCO2 POC ABG pO2 ABG pO2 ABG HCO3 ABG O2 Saturation ABG Base Excess ABG Hemoglobin ABG Oxyhemoglobin ABG Sodium ABG Potassium ABG Chloride ABG Glucose Oxyhemoglobin Carboxyhemoglobin Sodium Potassium Chloride Carbon Dioxide 31 H BUN 37 H Creatinine 2.2 H Glucose POC Glucose 65 L Lactic Acid Calcium 8.2 L Phosphorus Magnesium Ferritin Direct Bilirubin AST ALT Alkaline Phosphatase Lactate Dehydrogenase Total Creatine Kinase C-Reactive Protein Total Protein Albumin Triglycerides 166 H Arterial Blood Glucose Arterial Blood Ionized Calcium Urine Creatinine Urine Chloride Vancomycin Trough Coronavirus (PCR) Crossmatch 07/26/20 07/27/20 07/27/20 Unknown 04:00 07:09 WBC 24.6 H 27.1 H RBC 2.68 L 2.74 L Hgb 8.3 L 8.3 L Hct 24.7 L 25.3 L MCHC RDW 16.3 H 17.2 H Plt Count Lymph % (Auto) [place] % (Auto) Lymph # (Auto) [place] # (Auto) Eos # (Auto) Baso # (Auto) Seg Neutrophils % Seg Neuts % (Manual) 82.0 H 85.0 H Lymphocytes % (Manual) 5.0 L 4.0 L Monocytes % (Manual) 8.0 H Basophils % (Manual) Nucleated RBC % Seg Neutrophils # Seg Neutrophils # Man 20.2 H 23.0 H Lymphocytes # (Manual) 1.1 L Monocytes # (Manual) 2.0 H 1.6 H Eosinophils # (Manual) 0.7 H 1.1 H Basophils # (Manual) 0.3 H PT INR APTT D-Dimer Heparin Anti-Xa Level ABG pH POC ABG pCO2 POC ABG pO2 ABG pO2 ABG HCO3 ABG O2 Saturation ABG Base Excess ABG Hemoglobin ABG Oxyhemoglobin ABG Sodium ABG Potassium ABG Chloride ABG Glucose Oxyhemoglobin Carboxyhemoglobin Sodium Potassium Chloride Carbon Dioxide BUN Creatinine Glucose POC Glucose 115 H Lactic Acid Calcium Phosphorus Magnesium Ferritin Direct Bilirubin AST ALT Alkaline Phosphatase Lactate Dehydrogenase Total Creatine Kinase C-Reactive Protein Total Protein Albumin Triglycerides Arterial Blood Glucose Arterial Blood Ionized Calcium Urine Creatinine Urine Chloride Vancomycin Trough Coronavirus (PCR) Crossmatch 07/27/20 07/27/20 07/28/20 21:45 22:36 00:05 WBC RBC Hgb 6.4 L Hct 19.8 L* MCHC RDW Plt Count Lymph % (Auto) [place] % (Auto) Lymph # (Auto) [place] # (Auto) Eos # (Auto) Baso # (Auto) Seg Neutrophils % Seg Neuts % (Manual) Lymphocytes % (Manual) Monocytes % (Manual) Basophils % (Manual) Nucleated RBC % Seg Neutrophils # Seg Neutrophils # Man Lymphocytes # (Manual) Monocytes # (Manual) Eosinophils # (Manual) Basophils # (Manual) PT INR APTT D-Dimer Heparin Anti-Xa Level ABG pH POC ABG pCO2 POC ABG pO2 ABG pO2 ABG HCO3 ABG O2 Saturation ABG Base Excess ABG Hemoglobin ABG Oxyhemoglobin ABG Sodium ABG Potassium ABG Chloride ABG Glucose Oxyhemoglobin Carboxyhemoglobin Sodium Potassium Chloride Carbon Dioxide BUN Creatinine Glucose POC Glucose 124 H Lactic Acid Calcium Phosphorus Magnesium Ferritin Direct Bilirubin AST ALT Alkaline Phosphatase Lactate Dehydrogenase Total Creatine Kinase C-Reactive Protein Total Protein Albumin Triglycerides Arterial Blood Glucose Arterial Blood Ionized Calcium Urine Creatinine Urine Chloride Vancomycin Trough Coronavirus (PCR) Crossmatch See Detail 07/28/20 07/28/20 07/28/20 04:00 06:27 12:24 WBC 30.3 H RBC 2.35 L Hgb 7.2 L Hct 21.2 L MCHC RDW 16.8 H Plt Count Lymph % (Auto) [place] % (Auto) Lymph # (Auto) [place] # (Auto) Eos # (Auto) Baso # (Auto) Seg Neutrophils % Seg Neuts % (Manual) Lymphocytes % (Manual) Monocytes % (Manual) Basophils % (Manual) Nucleated RBC % Seg Neutrophils # Seg Neutrophils # Man Lymphocytes # (Manual) Monocytes # (Manual) Eosinophils # (Manual) Basophils # (Manual) PT INR APTT D-Dimer Heparin Anti-Xa Level ABG pH POC ABG pCO2 POC ABG pO2 ABG pO2 ABG HCO3 ABG O2 Saturation ABG Base Excess ABG Hemoglobin ABG Oxyhemoglobin ABG Sodium ABG Potassium ABG Chloride ABG Glucose Oxyhemoglobin Carboxyhemoglobin Sodium Potassium Chloride Carbon Dioxide BUN Creatinine Glucose POC Glucose 107 H 110 H Lactic Acid Calcium Phosphorus Magnesium Ferritin Direct Bilirubin AST ALT Alkaline Phosphatase Lactate Dehydrogenase Total Creatine Kinase C-Reactive Protein Total Protein Albumin Triglycerides Arterial Blood Glucose Arterial Blood Ionized Calcium Urine Creatinine Urine Chloride Vancomycin Trough Coronavirus (PCR) Crossmatch 07/28/20 07/28/20 07/28/20 14:31 18:19 23:33 WBC RBC Hgb Hct MCHC RDW Plt Count Lymph % (Auto) [place] % (Auto) Lymph # (Auto) [place] # (Auto) Eos # (Auto) Baso # (Auto) Seg Neutrophils % Seg Neuts % (Manual) Lymphocytes % (Manual) Monocytes % (Manual) Basophils % (Manual) Nucleated RBC % Seg Neutrophils # Seg Neutrophils # Man Lymphocytes # (Manual) Monocytes # (Manual) Eosinophils # (Manual) Basophils # (Manual) PT INR APTT D-Dimer Heparin Anti-Xa Level ABG pH 7.333 L POC ABG pCO2 POC ABG pO2 ABG pO2 68.0 L ABG HCO3 ABG O2 Saturation 92.4 L ABG Base Excess -2.7 L ABG Hemoglobin 9.0 L ABG Oxyhemoglobin ABG Sodium ABG Potassium ABG Chloride ABG Glucose Oxyhemoglobin 89.9 L Carboxyhemoglobin Sodium Potassium Chloride Carbon Dioxide BUN Creatinine Glucose POC Glucose 117 H 113 H Lactic Acid Calcium Phosphorus Magnesium Ferritin Direct Bilirubin AST ALT Alkaline Phosphatase Lactate Dehydrogenase Total Creatine Kinase C-Reactive Protein Total Protein Albumin Triglycerides Arterial Blood Glucose Arterial Blood Ionized Calcium Urine Creatinine Urine Chloride Vancomycin Trough Coronavirus (PCR) Crossmatch 07/28/20 07/29/20 07/29/20 Unknown 04:39 04:39 WBC 38.6 H RBC 2.15 L Hgb 6.6 L Hct 19.9 L* MCHC RDW 17.5 H Plt Count Lymph % (Auto) 3.2 L [place] % (Auto) Lymph # (Auto) [place] # (Auto) 2.7 H Eos # (Auto) 0.8 H Baso # (Auto) 0.4 H Seg Neutrophils % 86.5 H Seg Neuts % (Manual) Lymphocytes % (Manual) Monocytes % (Manual) Basophils % (Manual) Nucleated RBC % Seg Neutrophils # 33.4 H Seg Neutrophils # Man Lymphocytes # (Manual) Monocytes # (Manual) Eosinophils # (Manual) Basophils # (Manual) PT INR APTT D-Dimer Heparin Anti-Xa Level ABG pH POC ABG pCO2 POC ABG pO2 ABG pO2 ABG HCO3 ABG O2 Saturation ABG Base Excess ABG Hemoglobin ABG Oxyhemoglobin ABG Sodium ABG Potassium ABG Chloride ABG Glucose Oxyhemoglobin Carboxyhemoglobin Sodium 135 L Potassium 3.2 L 3.1 L Chloride Carbon Dioxide BUN 35 H 42 H Creatinine 2.3 H 2.5 H Glucose 123 H 109 H POC Glucose Lactic Acid Calcium 7.2 L 7.5 L Phosphorus Magnesium Ferritin Direct Bilirubin AST ALT Alkaline Phosphatase Lactate Dehydrogenase Total Creatine Kinase C-Reactive Protein Total Protein Albumin Triglycerides Arterial Blood Glucose Arterial Blood Ionized Calcium Urine Creatinine Urine Chloride Vancomycin Trough Coronavirus (PCR) Crossmatch 07/29/20 07/29/20 05:36 11:51 WBC RBC Hgb Hct MCHC RDW Plt Count Lymph % (Auto) [place] % (Auto) Lymph # (Auto) [place] # (Auto) Eos # (Auto) Baso # (Auto) Seg Neutrophils % Seg Neuts % (Manual) Lymphocytes % (Manual) Monocytes % (Manual) Basophils % (Manual) Nucleated RBC % Seg Neutrophils # Seg Neutrophils # Man Lymphocytes # (Manual) Monocytes # (Manual) Eosinophils # (Manual) Basophils # (Manual) PT INR APTT D-Dimer Heparin Anti-Xa Level ABG pH POC ABG pCO2 POC ABG pO2 ABG pO2 ABG HCO3 ABG O2 Saturation ABG Base Excess ABG Hemoglobin ABG Oxyhemoglobin ABG Sodium ABG Potassium ABG Chloride ABG Glucose Oxyhemoglobin Carboxyhemoglobin Sodium Potassium Chloride Carbon Dioxide BUN Creatinine Glucose POC Glucose 111 H 127 H Lactic Acid Calcium Phosphorus Magnesium Ferritin Direct Bilirubin AST ALT Alkaline Phosphatase Lactate Dehydrogenase Total Creatine Kinase C-Reactive Protein Total Protein Albumin Triglycerides Arterial Blood Glucose Arterial Blood Ionized Calcium Urine Creatinine Urine Chloride Vancomycin Trough Coronavirus (PCR) Crossmatch Chest x-ray: other (none today) Allied health notes reviewed: nursing
[2020-07-29] MEDS: SCOPOLAMINE TRANSDERMAL PATCH 72 HR TD SCH (13:39)
[2020-07-29] MEDS ORDERED: SODIUM CHLORIDE 0.9% 500 ML 500 ML IV SCH (14:00)
--- NOTE | 2020-07-29 15:06 | Progress Note ---
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 Kidney function worsened and patient developed hyperkalemia, refractory acidosis and worsening azotemia. Hemodialysis initiated on June 22. requiring intermittent vasopressor support. Continue hemodialysis on Saturday, Saturday and Saturday and isolated ultrafiltration on Saturday, and Saturday for aggressive volume control, with vasopressor support prn to maintain MAP < 65mmHg (2) Acute respiratory failure with hypoxia Current Visit: Yes Status: Acute Plan to address problem: Patient s/p tracheostomy, Vent management per pulmonology recommendations. (3) Pneumonia due to COVID-19 virus Current Visit: Yes Status: Acute Plan to address problem: Management per infectious disease recommendations. (4) Anemia Current Visit: Yes Status: Acute Qualifiers: Other causes of anemia: acute posthemorrhagic Plan to address problem: PRBC transfusion prn to target Hb > 7. cont EPO with HD (5) Hypokalemia Current Visit: Yes Status: Acute Plan to address problem: K supplementation with IV KCl to target K >4 (6) Severe sepsis with septic shock Current Visit: Yes Status: Acute Plan to address problem: Continue antibiotics per infectious disease image consultant appropriately adjusted to the degree of renal function. Subjective Date of service: 07/29/20 Principal diagnosis: ARF; Septic Shock; COVID-19 PNA; Atrial fibrillation; Obe sity Interval history: Patient remains on vent/trach, on levophed 6mcg/min. remains significantly fluid overload, pt had additional isolated UF yesterday Objective - Vital Signs Vital signs: Vital Signs - 12hr 07/29/20 07/29/20 07/29/20 03:30 04:00 04:30 Temperature 97.6 F Pulse Rate 124 H 120 H 123 H Pulse Rate [ 120 H From Monitor] Respiratory 11 L 21 19 Rate Blood Pressure 125/71 123/68 130/69 O2 Sat by Pulse 97 97 96 Oximetry O2 Sat by Pulse Oximetry [ Anterior Bilateral Throughout] 07/29/20 07/29/20 07/29/20 05:00 05:29 05:30 Temperature Pulse Rate 129 H 124 H Pulse Rate [ From Monitor] Respiratory 22 Rate Blood Pressure 135/72 125/67 130/68 O2 Sat by Pulse 93 94 95 Oximetry O2 Sat by Pulse Oximetry [ Anterior Bilateral Throughout] 07/29/20 07/29/20 07/29/20 06:00 06:30 07:00 Temperature Pulse Rate 130 H 126 H 123 H Pulse Rate [ From Monitor] Respiratory 18 21 20 Rate Blood Pressure 130/61 138/79 121/71 O2 Sat by Pulse 95 95 94 Oximetry O2 Sat by Pulse Oximetry [ Anterior Bilateral Throughout] 07/29/20 07/29/20 07/29/20 07:30 07:45 08:00 Temperature 97.8 F 97.8 F Pulse Rate 124 H 127 H 129 H Pulse Rate [ 129 H From Monitor] Respiratory 25 H 16 21 Rate Blood Pressure 116/66 125/72 110/67 O2 Sat by Pulse 95 93 Oximetry O2 Sat by Pulse Oximetry [ Anterior Bilateral Throughout] 07/29/20 07/29/20 07/29/20 08:15 08:30 08:45 Temperature Pulse Rate 125 H 129 H 130 H Pulse Rate [ From Monitor] Respiratory 20 Rate Blood Pressure 118/70 102/61 103/59 O2 Sat by Pulse 92 Oximetry O2 Sat by Pulse Oximetry [ Anterior Bilateral Throughout] 07/29/20 07/29/20 07/29/20 09:00 09:10 09:14 Temperature 97.8 F 97.8 F Pulse Rate 137 H 133 H 133 H Pulse Rate [ From Monitor] Respiratory 18 23 21 Rate Blood Pressure 90/51 105/66 120/68 O2 Sat by Pulse 89 92 95 Oximetry O2 Sat by Pulse Oximetry [ Anterior Bilateral Throughout] 07/29/20 07/29/20 07/29/20 09:15 09:21 09:29 Temperature 97.8 F Pulse Rate 137 H 137 H 133 H Pulse Rate [ From Monitor] Respiratory 20 Rate Blood Pressure 120/68 105/66 114/68 O2 Sat by Pulse 94 96 Oximetry O2 Sat by Pulse Oximetry [ Anterior Bilateral Throughout] 07/29/20 07/29/20 07/29/20 09:30 09:45 10:00 Temperature 97.8 F Pulse Rate 129 H 136 H 139 H Pulse Rate [ From Monitor] Respiratory 23 24 19 Rate Blood Pressure 114/68 123/70 111/66 O2 Sat by Pulse 95 95 94 Oximetry O2 Sat by Pulse Oximetry [ Anterior Bilateral Throughout] 07/29/20 07/29/20 07/29/20 10:15 10:30 10:45 Temperature Pulse Rate 122 H 134 H 125 H Pulse Rate [ From Monitor] Respiratory 21 Rate Blood Pressure 112/57 115/64 121/70 O2 Sat by Pulse 94 Oximetry O2 Sat by Pulse Oximetry [ Anterior Bilateral Throughout] 07/29/20 07/29/20 07/29/20 11:00 11:15 11:30 Temperature Pulse Rate 126 H 135 H 138 H Pulse Rate [ From Monitor] Respiratory 15 30 H Rate Blood Pressure 118/71 116/64 130/74 O2 Sat by Pulse 94 92 Oximetry O2 Sat by Pulse Oximetry [ Anterior Bilateral Throughout] 07/29/20 07/29/20 07/29/20 11:46 11:50 12:00 Temperature 97.8 F 98.7 F Pulse Rate 120 H 119 H 140 H Pulse Rate [ 133 H From Monitor] Respiratory 33 H 21 Rate Blood Pressure 126/61 126/61 O2 Sat by Pulse 93 97 Oximetry O2 Sat by Pulse 95 Oximetry [ Anterior Bilateral Throughout] 07/29/20 07/29/20 07/29/20 12:01 12:30 12:56 Temperature Pulse Rate 131 H 133 H 133 H Pulse Rate [ From Monitor] Respiratory 20 20 Rate Blood Pressure 130/74 123/63 111/61 O2 Sat by Pulse 77 L 95 95 Oximetry O2 Sat by Pulse Oximetry [ Anterior Bilateral Throughout] 07/29/20 13:00 Temperature Pulse Rate 133 H Pulse Rate [ From Monitor] Respiratory Rate Blood Pressure 111/61 O2 Sat by Pulse 95 Oximetry O2 Sat by Pulse Oximetry [ Anterior Bilateral Throughout] - General Appearance General appearance: well-developed, appears stated age, sedated on ventilator, intubated EENT: ATNC, mucous membranes moist Neck: no JVD Respiratory: Present: Decreased Breath Sounds Cardiology: regular, S1S2 Gastrointestinal: normoactive bowel sounds Integumentary: no rash, other (++ edema b /l LE ) Neurologic: other (intubated, sedated ) - Lab 07/29/20 04:39 07/29/20 04:39 Most recent lab results ABG pH 7.333 pH Units (7.350-7.450) L 07/28/20 14:31 ABG pCO2 44.4 mm Hg 07/28/20 14:31 ABG pO2 68.0 mm Hg (80.0-90.0) L 07/28/20 14:31 ABG HCO3 23.1 mmol/L (20.0-26.0) 07/28/20 14:31 ABG O2 Saturation 92.4 % (95.0-99.0) L 07/28/20 14:31 Calcium 7.5 mg/dL (8.4-10.2) L 07/29/20 04:39 Phosphorus 9.40 mg/dL (2.5-4.5) H 06/30/20 03:50 Magnesium 2.70 mg/dL (1.7-2.3) H 06/18/20 20:33 Urine Creatinine 192.4 mg/dL (0.1-20.0) H 06/18/20 15:00 Urine Sodium 28 mmol/L 06/18/20 15:00 Medications & Allergies - Medications Allergies/Adverse Reactions: Allergies No Known Allergies Allergy (Unverified 06/17/20 14:24) Home Medications: Home Medications Medication Instructions Recorded Confirmed Last Taken Type Losartan/Hydrochlorothiazide 1 each PO QDAY 06/19/20 06/19/20 Unknown History [Losartan-Hctz 100-25 mg Tab] amLODIPine [Norvasc] 5 mg PO DAILY 06/19/20 06/19/20 Unknown History Active Medications: Generic Name Dose Route Start Last Admin Trade Name Freq PRN Reason Stop Dose Admin Acetaminophen 650 mg 06/17/20 14:17 07/03/20 09:16 Acetaminophen 325 Mg Tab PO 650 mg Q4H PRN Administration Pain MILD(1-3)/Fever >100.5/ROBERTS Albuterol 2.5 mg 07/19/20 12:15 Albuterol 2.5 Mg/3 Ml Nebu IH Q6HRT PRN Shortness Of Breath Alteplase, Recombinant 2 mg 07/27/20 18:40 Alteplase 2 Mg Inj IV PAM PRN LINE FLUSH Amiodarone HCl 200 mg 07/19/20 14:00 07/29/20 10:03 Amiodarone 200 Mg Tab PO Not Given BID CONNOR Lipase/Protease/Amylase 1 each 06/19/20 12:15 Lipase 10,500/Protease 25,000/Amylase 43,750 (Units) Dr Kulkarni FEEDTUBE PRN PRN For Clogged Feeding Tube Ascorbic Acid 250 mg 06/17/20 22:00 07/29/20 10:03 Ascorbic Acid 250 Mg Tab PO 250 mg BID CONNOR Administration Cholecalciferol 1,000 unit 06/18/20 10:00 07/29/20 10:02 Cholecalciferol (Vit D3) 1000 Unit (25 Mcg) Tab PO 1,000 unit DAILY CONNOR Administration Dextrose 50 ml 07/26/20 22:00 07/27/20 06:42 Dextrose 50% In Water (25gm) 50 Ml Syringe IV 50 ml Q30MIN PRN Administration Hypoglycemia Protocol Docusate Sodium 100 mg 06/23/20 15:00 07/29/20 10:02 Docusate Sodium 100 Mg/10 Ml Oral Liqd FEEDTUBE 100 mg BID CONNOR Administration Fentanyl 50 mcg 06/18/20 01:02 07/27/20 16:59 Fentanyl 100 Mcg/2 Ml Inj IV 50 mcg Q10MIN PRN Administration ANALGESIA Heparin Sodium (Porcine) 5,000 unit 06/22/20 12:53 07/28/20 20:45 Heparin 10,000 Unit/1 Ml Vial IV 5,000 unit PAM PRN Administration hemodialysis Hydrophilic Ointment 1 applic 06/17/20 22:52 07/12/20 20:22 Lip Therapy Vaseline TP 1 applic Q2HR PRN Administration Dry Lips Propofol 1,000 mg in 100 mls @ 3.402 mls/hr 06/18/20 01:00 07/29/20 10:15 Diprivan 10 Mg/Ml IV 15 mcg/kg/min TITR CONNOR 10.206 mls/hr Administration Protocol 5 MCG/KG/MIN Fentanyl Citrate 2,000 mcg in 100 mls @ 8 mls/hr 06/18/20 02:00 07/29/20 14:33 Fentanyl Drip Premix IV 4 mcg/kg/hr TITR CONNOR 32 mls/hr Administration Protocol 1 MCG/KG/HR Norepinephrine 4 mg in 250 mls @ 7.5 mls/hr 07/08/20 02:06 07/29/20 13:12 Levophed Drip 4 Mg/Ns 250 Ml IV 10 mcg/min TITR CONNOR 37.5 mls/hr Titration Protocol 2 MCG/MIN Vasopressin 20 unit/ Sodium 101 mls @ 9.09 mls/hr 07/11/20 11:00 07/18/20 15:36 Chloride IV 0 units/min TITR CONNOR 0 mls/hr Titration Protocol 0.03 UNITS/MIN Ampicillin Sodium 2 gm in 100 mls @ 100 mls/hr 07/21/20 12:00 07/29/20 12:24 Ampicillin/Ns 2 Gm/100 Ml IV 08/01/20 12:59 100 mls/hr Q12H CONNOR Administration Protocol Amiodarone HCl 900 mg/ 500 mls @ 33.333 mls/hr 07/27/20 17:00 07/29/20 12:22 Dextrose IV 0.5 mg/min DIRECT CONNOR 16.667 mls/hr Administration Protocol 1 MG/MIN Sodium Chloride 100 mls @ 999 mls/hr 07/27/20 18:40 Nacl 0.9% IV PAM PRN Hypotension Insulin Human Regular 0 units 06/18/20 12:00 07/29/20 12:25 Insulin Regular, Human 100 Units/1 Ml SUB-Q Not Given Q6HR [facility] Protocol Multi-Ingred Cream/Lotion/Oil/Oint 1 applic 06/17/20 22:52 07/12/20 20:22 Mineral Oil/Petrolatum, White Ophth Oint 3.5 Gm OU 1 applic Q4HR PRN Administration Dry Eye(s) Ondansetron HCl 4 mg 06/17/20 14:17 Ondansetron 4 Mg/2 Ml Inj IV Q8H PRN Nausea And Vomiting Pantoprazole Sodium 40 mg 07/16/20 22:00 07/29/20 10:02 Pantoprazole 40 Mg Inj IV 40 mg BID CONNOR Administration Polyethylene Glycol 17 gm 06/23/20 15:00 07/29/20 10:02 Polyethylene Glycol 3350 17 Gm Powder PO 17 gm QDAY CONNOR Administration Quetiapine Fumarate 200 mg 06/28/20 13:00 07/29/20 10:02 Quetiapine 200 Mg Tab PO 200 mg BID CONNOR Administration Scopolamine 1 each 07/29/20 14:00 07/29/20 13:39 Scopolamine Transdermal Patch 72 Hr TD 1 each Q3D CONNOR Administration Simple Syrup 15 ml 06/19/20 12:15 07/26/20 13:55 Simple Syrup 15 Ml FEEDTUBE 15 ml PRN PRN Administration Hypoglycemia Simple Syrup 30 ml 06/19/20 12:15 07/19/20 06:04 Simple Syrup 15 Ml FEEDTUBE 30 ml PRN PRN Administration Hypoglycemia Sodium Bicarbonate 325 mg 06/19/20 12:15 07/11/20 20:00 Sodium Bicarbonate 325 Mg Tab FEEDTUBE 325 mg PRN PRN Administration For Clogged Feeding Tube Sodium Chloride 10 ml 06/17/20 22:00 07/29/20 10:02 Sodium Chloride 0.9% 10 Ml Flush Syringe IV 10 ml BID CONNOR Administration Sodium Chloride 10 ml 06/17/20 14:17 Sodium Chloride 0.9% 10 Ml Flush Syringe IV PRN PRN LINE FLUSH Sodium Hypochlorite 1 applic 07/20/20 10:00 07/29/20 10:18 Sodium Hypochlorite, Dakin's 1/2 Strength (0.25%) 473 Ml Topical Soln TP 1 applicatio BID CONNOR Administration Zinc Sulfate 220 mg 06/17/20 22:00 07/29/20 10:02 Zinc Sulfate 220 Mg Cap PO 220 mg BID CONNOR Administration
--- NOTE | 2020-07-29 15:20 | Progress Note ---
Assessment and Plan Cultures: SARS CoV2 PCR: Positive 06/17/2020 blood culture: No growth 06/17/2020 sputum culture: No growth 07/15/2020 blood culture: No growth 07/15/2020 fungal blood culture: Enterococcus faecalis 07/15/2020 tracheal aspirate culture: Usual respiratory otf 07/18/2020 blood culture: no growth A/P: 59-year-old male with obesity, obesity hypoventilation syndrome: #Severe sepsis with septic shock, ?also component of hemorrhagic shock. On and off pressors. #Enterococcus bacteremia: 07/15/2020 fungal blood culture: grew Enterococcus. ?gut translocation. Interestingly other blood cultures from that day were negative. CT abdomen showed some colitis. Since repeat blood cultures negative, will finish 14 days of abx. #Anemia, GI bleed: GI on board. #Critical COVID-19 pneumonia: s/p abx, steroids and remdesivir. #Acute hypoxic respiratory failure: on the vent. Also with pneumomediastinum, subcutaneous emphysema. #Leukemoid reaction: likely multifactorial. #GIRISH: remains on HD per nephrology. Renally dose abx. #Sacral decubitus: s/p debridement by Dr. Kirk on 07/20/2020. Recs: -pressor requirements dropping, continue IV Ampicillin, renally dosed, complete 14 days ending 08/01/2020 -repeat blood cultures have been negative, however, if pressor requirements persist or worsen, exchange out lines -If develops new fevers greater than 100.4 degrees, repeat cultures and start vancomycin. -monitor fever and WBC Dr. Hampton taking over this weekend. Юлия Finney MD [facility] O: [phone] F: [phone] Subjective Date of service: 07/29/20 Principal diagnosis: ARF; Septic Shock; COVID-19 PNA; Atrial fibrillation; Obesity Interval history: Afebrile, white count remains elevated at 38.6. Objective - Exam Narrative Exam: Constitutional: sedated, intubated, on the vent Head, Ears, Nose: Normocephalic, atraumatic. External ears, nose normal Eyes: Conjunctivae/corneas clear. No icterus. No ptosis. Neck: intubated Oral: intubated Cardiovascular: S1, S2 + Respiratory: AE fair bilaterally and equal GI: Soft, bowel sounds + Musculoskeletal: No pedal edema, no cyanosis. Skin: No rash or abscess Hem/Lymphatic: No palpable cervical or supraclavicular nodes. Psych: no agitation Neurological: sedated, intubated, on the vent, exam limited - Constitutional Vitals: Vital Signs Temp Pulse Resp BP Pulse Ox 98.7 F 133 H 20 111/61 95 07/29/20 12:00 07/29/20 13:00 07/29/20 12:56 07/29/20 13:00 07/29/20 13:00 Temperature -Last 24 Hours Temperature 98.7 F Temperature 97.8 F Temperature 97.8 F Temperature 97.8 F Temperature 97.8 F Temperature 97.8 F Temperature 97.8 F Temperature 97.8 F Temperature 97.6 F Temperature 97.7 F Temperature 99.3 F Temperature 98.4 F Temperature 98.4 F Temperature 99.3 F Temperature 99.3 F - Labs CBC & Chem 7: 07/29/20 04:39 07/29/20 04:39 Labs: Abnormal lab results 07/27/20 07/28/20 07/28/20 Range/Units 22:36 12:24 14:31 WBC (4.5-11.0) K/mm3 RBC (3.65-5.03) M/mm3 Hgb (11.8-15.2) gm/dl Hct (35.5-45.6) % RDW (13.2-15.2) % Lymph % (Auto) (13.4-35.0) % Burke # (Auto) (0.0-0.8) K/mm3 Eos # (Auto) (0.0-0.4) K/mm3 Baso # (Auto) (0.0-0.1) K/mm3 Seg Neutrophils % (40.0-70.0) % Seg Neutrophils # (1.8-7.7) K/mm3 ABG pH 7.333 L (7.350-7.450) pH Units ABG pO2 68.0 L (80.0-90.0) mm Hg ABG O2 Saturation 92.4 L (95.0-99.0) % ABG Base Excess -2.7 L (-2.0-3.0) mmol/L ABG Hemoglobin 9.0 L (14.0-18.0) gm/dl Oxyhemoglobin 89.9 L (95.0-99.0) % Sodium (137-145) mmol/L Potassium (3.6-5.0) mmol/L BUN (9-20) mg/dL Creatinine (0.8-1.3) mg/dL Glucose (75-100) mg/dL POC Glucose 110 H (70-105) mg/dL Calcium (8.4-10.2) mg/dL Crossmatch See Detail 07/28/20 07/28/20 07/29/20 Range/Units 18:19 23:33 04:39 WBC 38.6 H (4.5-11.0) K/mm3 RBC 2.15 L (3.65-5.03) M/mm3 Hgb 6.6 L (11.8-15.2) gm/dl Hct 19.9 L* (35.5-45.6) % RDW 17.5 H (13.2-15.2) % Lymph % (Auto) 3.2 L (13.4-35.0) % Burke # (Auto) 2.7 H (0.0-0.8) K/mm3 Eos # (Auto) 0.8 H (0.0-0.4) K/mm3 Baso # (Auto) 0.4 H (0.0-0.1) K/mm3 Seg Neutrophils % 86.5 H (40.0-70.0) % Seg Neutrophils # 33.4 H (1.8-7.7) K/mm3 ABG pH (7.350-7.450) pH Units ABG pO2 (80.0-90.0) mm Hg ABG O2 Saturation (95.0-99.0) % ABG Base Excess (-2.0-3.0) mmol/L ABG Hemoglobin (14.0-18.0) gm/dl Oxyhemoglobin (95.0-99.0) % Sodium (137-145) mmol/L Potassium (3.6-5.0) mmol/L BUN (9-20) mg/dL Creatinine (0.8-1.3) mg/dL Glucose (75-100) mg/dL POC Glucose 117 H 113 H (70-105) mg/dL Calcium (8.4-10.2) mg/dL Crossmatch 07/29/20 07/29/20 07/29/20 Range/Units 04:39 05:36 11:51 WBC (4.5-11.0) K/mm3 RBC (3.65-5.03) M/mm3 Hgb (11.8-15.2) gm/dl Hct (35.5-45.6) % RDW (13.2-15.2) % Lymph % (Auto) (13.4-35.0) % Burke # (Auto) (0.0-0.8) K/mm3 Eos # (Auto) (0.0-0.4) K/mm3 Baso # (Auto) (0.0-0.1) K/mm3 Seg Neutrophils % (40.0-70.0) % Seg Neutrophils # (1.8-7.7) K/mm3 ABG pH (7.350-7.450) pH Units ABG pO2 (80.0-90.0) mm Hg ABG O2 Saturation (95.0-99.0) % ABG Base Excess (-2.0-3.0) mmol/L ABG Hemoglobin (14.0-18.0) gm/dl Oxyhemoglobin (95.0-99.0) % Sodium 135 L (137-145) mmol/L Potassium 3.1 L (3.6-5.0) mmol/L BUN 42 H (9-20) mg/dL Creatinine 2.5 H (0.8-1.3) mg/dL Glucose 109 H (75-100) mg/dL POC Glucose 111 H 127 H (70-105) mg/dL Calcium 7.5 L (8.4-10.2) mg/dL Crossmatch
[2020-07-30] MEDS: INSULIN REGULAR, HUMAN 100 UNITS/1 ML SUB-Q SCH ×4 (00:10→20:16)
[2020-07-30] MEDS: AMPICILLIN/NS 2 GM/100 ML 2 GM/100 ML BAG IV SCH ×3 (00:20→23:46)
[2020-07-30] MEDS: fentaNYL DRIP Premix 2,000 MCG/100 ML BAG IV SCH ×8 (00:25→23:37)
[2020-07-30] MEDS: NORepinephrine/NS 4 MG-250 ML 4 MG/250 ML BAG IV SCH ×2 (04:15→20:43)
[2020-07-30] MEDS: ASCORBIC ACID 250 MG TAB PO SCH ×2 (09:44→21:43)
[2020-07-30] MEDS: CHOLECALCIFEROL (VIT D3) 1000 UNIT (25 mcg) TAB PO SCH (09:44)
[2020-07-30] MEDS: AMIODARONE 200 MG TAB PO SCH ×2 (09:44→21:41)
[2020-07-30] MEDS: POLYETHYLENE GLYCOL 3350 17 GM POWDER PO SCH (09:44)
[2020-07-30] MEDS: DOCUSATE SODIUM 100 MG/10 ML ORAL LIQD FEEDTUBE SCH ×2 (09:45→21:41)
[2020-07-30] MEDS: SODIUM HYPOCHLORITE, DAKIN'S 1/2 STRENGTH (0.25%) 473 ML TOPICAL SOLN TP SCH ×2 (09:45→21:41)
[2020-07-30] MEDS: ZINC SULFATE 220 MG CAP PO SCH ×2 (09:45→21:43)
[2020-07-30] MEDS: PANTOPRAZOLE 40 MG INJ IV SCH ×2 (09:45→21:43)
[2020-07-30] MEDS: QUEtiapine 200 MG TAB PO SCH ×2 (09:45→21:43)
--- NOTE | 2020-07-30 11:12 | Progress Note ---
Assessment and Plan - Patient Problems (1) Acute renal failure Current Visit: Yes Status: Acute Qualifiers: Acute renal failure type: with acute tubular necrosis Qualified Code(s): N17.0 - Acute kidney failure with tubular necrosis Plan to address problem: Likely prerenal in nature secondary to new onset of COVID-19 pneumonia with worsening sepsis and hypotension. Concern for acute tubular necrosis. Has now been on HD with no significant findings of renal recovery at present time. He is also requiring extra isolated UF treatments to further optimize his volume status. Pending isolated UF treatment today. We will continue to monitor closely. (2) Pneumonia due to COVID-19 virus Current Visit: Yes Status: Acute Plan to address problem: Management per infectious disease recommendations. (3) Acute respiratory failure with hypoxia Current Visit: Yes Status: Acute Plan to address problem: Patient underwent tracheostomy. Further management per pulmonary. (4) Anemia Current Visit: Yes Status: Acute Qualifiers: Other causes of anemia: acute posthemorrhagic Plan to address problem: Transfuse to maintain Hgb >7.0. (5) Hyperkalemia Current Visit: Yes Status: Acute Plan to address problem: Manage with HD. Subjective Date of service: 07/30/20 Principal diagnosis: ARF; Septic Shock; COVID-19 PNA; Atrial fibrillation; Obesity Interval history: No acute changes overnight. Remains on low-dose Levophed at this time. Tolerated hemodialysis yesterday but had to be restarted on Levophed secondary to blood pressure drop. Plan for isolated UF treatment today. Still pending discharge to LT[facility]. Objective - Vital Signs Vital signs: Vital Signs - 12hr 07/29/20 07/30/20 07/30/20 23:30 00:00 00:01 Temperature 100.2 F H Pulse Rate 130 H 130 H 130 H Pulse Rate [ 130 H From Monitor] Respiratory 20 26 H Rate Blood Pressure 97/55 101/56 101/56 O2 Sat by Pulse 97 97 98 Oximetry 07/30/20 07/30/20 07/30/20 00:30 01:00 01:30 Temperature Pulse Rate 129 H 129 H 129 H Pulse Rate [ From Monitor] Respiratory 21 20 22 Rate Blood Pressure 101/54 96/55 98/55 O2 Sat by Pulse 97 97 97 Oximetry 07/30/20 07/30/20 07/30/20 02:00 02:30 03:00 Temperature Pulse Rate 130 H 130 H 129 H Pulse Rate [ From Monitor] Respiratory 20 21 20 Rate Blood Pressure 97/58 99/53 96/55 O2 Sat by Pulse 97 97 97 Oximetry 07/30/20 07/30/20 07/30/20 03:30 04:00 04:01 Temperature 100.2 F H Pulse Rate 129 H 128 H 130 H Pulse Rate [ 129 H From Monitor] Respiratory 17 22 Rate Blood Pressure 96/56 95/56 96/56 O2 Sat by Pulse 98 97 98 Oximetry 07/30/20 07/30/20 07/30/20 04:30 05:00 05:30 Temperature Pulse Rate 129 H 130 H 129 H Pulse Rate [ From Monitor] Respiratory 21 21 22 Rate Blood Pressure 88/55 100/58 90/50 O2 Sat by Pulse 97 98 97 Oximetry 07/30/20 07/30/20 07/30/20 06:00 06:30 07:00 Temperature Pulse Rate 131 H 126 H 129 H Pulse Rate [ From Monitor] Respiratory 24 21 22 Rate Blood Pressure 117/59 106/54 96/54 O2 Sat by Pulse 97 97 97 Oximetry 07/30/20 07/30/20 07/30/20 07:30 08:00 08:30 Temperature 99.2 F Pulse Rate 127 H 129 H 129 H Pulse Rate [ 129 H From Monitor] Respiratory 20 23 22 Rate Blood Pressure 107/54 100/53 102/54 O2 Sat by Pulse 96 96 97 Oximetry 07/30/20 07/30/20 07/30/20 08:36 08:50 09:00 Temperature Pulse Rate 128 H 133 H 132 H Pulse Rate [ From Monitor] Respiratory 18 31 H Rate Blood Pressure 102/54 137/64 121/68 O2 Sat by Pulse 100 94 94 Oximetry 07/30/20 07/30/20 09:30 10:00 Temperature Pulse Rate 129 H 129 H Pulse Rate [ From Monitor] Respiratory 21 17 Rate Blood Pressure 108/55 104/54 O2 Sat by Pulse 96 95 Oximetry - General Appearance General appearance: chronically ill, intubated, fatigue EENT: ATNC Neck: no JVD Respiratory: Present: Decreased Breath Sounds Cardiology: regular Gastrointestinal: normal Integumentary: no rash Neurologic: other (Does not follow simple commands this time. Remains sedated.) Musculoskeletal: deferred - Lab 07/29/20 04:39 07/29/20 04:39 Most recent lab results ABG pH 7.333 pH Units (7.350-7.450) L 07/28/20 14:31 ABG pCO2 44.4 mm Hg 07/28/20 14:31 ABG pO2 68.0 mm Hg (80.0-90.0) L 07/28/20 14:31 ABG HCO3 23.1 mmol/L (20.0-26.0) 07/28/20 14:31 ABG O2 Saturation 92.4 % (95.0-99.0) L 07/28/20 14:31 Calcium 7.5 mg/dL (8.4-10.2) L 07/29/20 04:39 Phosphorus 9.40 mg/dL (2.5-4.5) H 06/30/20 03:50 Magnesium 2.70 mg/dL (1.7-2.3) H 06/18/20 20:33 Urine Creatinine 192.4 mg/dL (0.1-20.0) H 06/18/20 15:00 Urine Sodium 28 mmol/L 06/18/20 15:00 - Allied health notes Allied health notes reviewed: nursing Medications & Allergies - Medications Allergies/Adverse Reactions: Allergies No Known Allergies Allergy (Unverified 06/17/20 14:24) Home Medications: Home Medications Medication Instructions Recorded Confirmed Last Taken Type Losartan/Hydrochlorothiazide 1 each PO QDAY 06/19/20 06/19/20 Unknown History [Losartan-Hctz 100-25 mg Tab] amLODIPine [Norvasc] 5 mg PO DAILY 06/19/20 06/19/20 Unknown History Active Medications: Generic Name Dose Route Start Last Admin Trade Name Freq PRN Reason Stop Dose Admin Acetaminophen 650 mg 06/17/20 14:17 07/03/20 09:16 Acetaminophen 325 Mg Tab PO 650 mg Q4H PRN Administration Pain MILD(1-3)/Fever >100.5/ROBERTS Albuterol 2.5 mg 07/19/20 12:15 Albuterol 2.5 Mg/3 Ml Nebu IH Q6HRT PRN Shortness Of Breath Alteplase, Recombinant 2 mg 07/27/20 18:40 Alteplase 2 Mg Inj IV PAM PRN LINE FLUSH Amiodarone HCl 200 mg 07/19/20 14:00 07/30/20 09:44 Amiodarone 200 Mg Tab PO 200 mg BID CONNOR Administration Lipase/Protease/Amylase 1 each 06/19/20 12:15 Lipase 10,500/Protease 25,000/Amylase 43,750 (Units) Dr Cap FEEDTUBE PRN PRN For Clogged Feeding Tube Ascorbic Acid 250 mg 06/17/20 22:00 07/30/20 09:44 Ascorbic Acid 250 Mg Tab PO 250 mg BID CONNOR Administration Cholecalciferol 1,000 unit 06/18/20 10:00 07/30/20 09:44 Cholecalciferol (Vit D3) 1000 Unit (25 Mcg) Tab PO 1,000 unit DAILY CONNOR Administration Dextrose 50 ml 07/26/20 22:00 07/27/20 06:42 Dextrose 50% In Water (25gm) 50 Ml Syringe IV 50 ml Q30MIN PRN Administration Hypoglycemia Protocol Docusate Sodium 100 mg 06/23/20 15:00 07/30/20 09:45 Docusate Sodium 100 Mg/10 Ml Oral Liqd FEEDTUBE 100 mg BID CONNOR Administration Fentanyl 50 mcg 06/18/20 01:02 07/27/20 16:59 Fentanyl 100 Mcg/2 Ml Inj IV 50 mcg Q10MIN PRN Administration ANALGESIA Heparin Sodium (Porcine) 5,000 unit 06/22/20 12:53 07/28/20 20:45 Heparin 10,000 Unit/1 Ml Vial IV 5,000 unit PAM PRN Administration hemodialysis Hydrophilic Ointment 1 applic 06/17/20 22:52 07/12/20 20:22 Lip Therapy Vaseline TP 1 applic Q2HR PRN Administration Dry Lips Propofol 1,000 mg in 100 mls @ 3.402 mls/hr 06/18/20 01:00 07/30/20 04:26 Diprivan 10 Mg/Ml IV 5 mcg/kg/min TITR CONNOR 3.402 mls/hr Administration Protocol 5 MCG/KG/MIN Fentanyl Citrate 2,000 mcg in 100 mls @ 8 mls/hr 06/18/20 02:00 07/30/20 10:27 Fentanyl Drip Premix IV 4 mcg/kg/hr TITR CONNOR 32 mls/hr Administration Protocol 1 MCG/KG/HR Norepinephrine 4 mg in 250 mls @ 7.5 mls/hr 07/08/20 02:06 07/30/20 04:15 Levophed Drip 4 Mg/Ns 250 Ml IV 10 mcg/min TITR CONNOR 37.5 mls/hr Administration Protocol 2 MCG/MIN Vasopressin 20 unit/ Sodium 101 mls @ 9.09 mls/hr 07/11/20 11:00 07/18/20 15:36 Chloride IV 0 units/min TITR CONNOR 0 mls/hr Titration Protocol 0.03 UNITS/MIN Ampicillin Sodium 2 gm in 100 mls @ 100 mls/hr 07/21/20 12:00 07/30/20 00:20 Ampicillin/Ns 2 Gm/100 Ml IV 08/01/20 12:59 100 mls/hr Q12H CONNOR Administration Protocol Amiodarone HCl 900 mg/ 500 mls @ 33.333 mls/hr 07/27/20 17:00 07/29/20 12:22 Dextrose IV 0.5 mg/min DIRECT CONNOR 16.667 mls/hr Administration Protocol 1 MG/MIN Sodium Chloride 100 mls @ 999 mls/hr 07/27/20 18:40 Nacl 0.9% IV PAM PRN Hypotension Insulin Human Regular 0 units 06/18/20 12:00 07/30/20 05:17 Insulin Regular, Human 100 Units/1 Ml SUB-Q Not Given Q6HR CONNOR Protocol Multi-Ingred Cream/Lotion/Oil/Oint 1 applic 06/17/20 22:52 07/12/20 20:22 Mineral Oil/Petrolatum, White Ophth Oint 3.5 Gm OU 1 applic Q4HR PRN Administration Dry Eye(s) Ondansetron HCl 4 mg 06/17/20 14:17 Ondansetron 4 Mg/2 Ml Inj IV Q8H PRN Nausea And Vomiting Pantoprazole Sodium 40 mg 07/16/20 22:00 07/30/20 09:45 Pantoprazole 40 Mg Inj IV 40 mg BID CONNOR Administration Polyethylene Glycol 17 gm 06/23/20 15:00 07/30/20 09:44 Polyethylene Glycol 3350 17 Gm Powder PO 17 gm QDAY CONNOR Administration Quetiapine Fumarate 200 mg 06/28/20 13:00 07/30/20 09:45 Quetiapine 200 Mg Tab PO 200 mg BID CONNOR Administration Scopolamine 1 each 07/29/20 14:00 07/29/20 13:39 Scopolamine Transdermal Patch 72 Hr TD 1 each Q3D CONNOR Administration Simple Syrup 15 ml 06/19/20 12:15 07/26/20 13:55 Simple Syrup 15 Ml FEEDTUBE 15 ml PRN PRN Administration Hypoglycemia Simple Syrup 30 ml 06/19/20 12:15 07/19/20 06:04 Simple Syrup 15 Ml FEEDTUBE 30 ml PRN PRN Administration Hypoglycemia Sodium Bicarbonate 325 mg 06/19/20 12:15 07/11/20 20:00 Sodium Bicarbonate 325 Mg Tab FEEDTUBE 325 mg PRN PRN Administration For Clogged Feeding Tube Sodium Chloride 10 ml 06/17/20 22:00 07/29/20 21:16 Sodium Chloride 0.9% 10 Ml Flush Syringe IV 10 ml BID CONNOR Administration Sodium Chloride 10 ml 06/17/20 14:17 07/30/20 09:46 Sodium Chloride 0.9% 10 Ml Flush Syringe IV 10 ml PRN PRN Administration LINE FLUSH Sodium Hypochlorite 1 applic 07/20/20 10:00 07/30/20 09:45 Sodium Hypochlorite, Dakin's 1/2 Strength (0.25%) 473 Ml Topical Soln TP 1 applicatio BID CONNOR Administration Zinc Sulfate 220 mg 06/17/20 22:00 07/30/20 09:45 Zinc Sulfate 220 Mg Cap PO 220 mg BID CONNOR Administration
--- NOTE | 2020-07-30 11:38 | Progress Note ---
Assessment and Plan Assessment and plan: 59-year-old white male who was admitted for pneumonia secondary to Covid with associated respiratory failure and sepsis. Severe septic shock COVID-19 pneumonia Sacral wound, stage 4 Leukocytosis Acute metabolic encephalopathy Acute hypoxic respiratory failure Enterococcus bacteremia Pneumomediastinum Acute kidney injury likely secondary to acute tubular necrosis which progressed to hemodialysis SVT/proximal atrial fibrillation Elevated LFTs Anemia likely due to severe sepsis had declining renal function Morbid obesity Leukocytosis Hypoalbuminemia 06/18: Patient got intubated overnight. Patient was placed on BiPAP to maintain oxygenation with 100% FiO2 but apparently he found to take off his argueta which made his oxygen saturation go down at 60s/50s and patient was found altered mental status. Code met was called immediately. Patient was transferred to ICU and intubated, patient currently on 2 pressors, intubated with 100% FiO2, renal function noted to be decline, nephrology consulted. Discussed with [place] physician Dr. Thompson and requested call back on Saturday. Poor prognosis, continue to monitor with aggressive supportive care. Also called family/ to update clinical status. 06/19: Repeat COVID test was positive. cont cefepime, remdesivir per ID recom mendation. follow inflammatory markers, cbc, bmp. placed on heparin drip for atrial fib 06/20: Remains on mechanical ventilation, on 2 pressors, on heparin drip. discussed with and daughter by phone. Renal function declining. cont supportive care for now. 06/21: Renal function cont to decline, urine outpt sig decreased. started on lasix 80mg BID, plan to follow urine output, if no improvement patient need to start on HD. called and daughter today. updated all clinical details 06/22: Renal function continues to decline with uremia and hyperkalemia. Will need to proceed with hemodialysis. Nephrology discussed with the family and they agrees for the hemodialysis. Patient remains on pressor support and mechanical ventilation. Vas-Cath placed today by vascular started on hemodialysis today. 06/23: 2nd round of HD today, remains on 2 pressors. per RN not tolerating TF, has no record of BM since 06/18. start on stool softner. follow cbc/bmp. updated family ( and daughter) by phone -all question answered to best of my knowledge and to their satisfaction. Patient remains critically ill with a very poor prognosis. 06/24: Continue supportive care, Very poor prognosis, Slots Manager to discuss with family in am due to the futility of the condition. 06/25/2020 continue supportive care very poor prognosis 06/26/2020 continue supportive care very poor prognosis family updated 06/27/2020 continue supportive care and weaning if possible 06/28/2020 continue supportive care, talk with at length 06/29: Resumed care. K level persistently high. give one dose of bicarbonate, plan for HD today, recheck k after HD. updated family by phone 06/30: updated family by phone. Patient remains on amiodarone drip and vasopressin. Getting HD at the bedside. Tolerating tube feeding at low rate. 07/01: Hb dropped to 6.4 today, transfuse one unit PRBC. patient is off pressor today, remains on amioderone. cont to monitor 07/02: Called patient and updated clinical details. Patient remains critically ill, still intubated. Patient's oxygen requirement and PEEP pressure has went down. Continue weaning protocol per critical care recommendation. Patient remains off pressor. Continue to wean off from amiodarone and plan to rate control with p.o. medications. Tolerating tube feeding. H&H stable today. Order for stool for occult blood. Monitor H&H and BMP. Continue to follow clinically 07/03: discussed with [facility] physician today. Patient back on 100percent Fio2 since last night. planned for emergent Hd today. spiked fever, start IV Cefepime + Vancomycin renally dosed. Restarted Levophed today, remains on amiodarone drip. Patient family was updated by critical care attending today. 07/04: Patient has hemodialysis yesterday and also plan for today for volume overload and pulmonary edema. Patient currently on 80% FiO2. Remains on Levophed and amiodarone. Hemoglobin dropped to 6.7 without any evidence of active bleeding. LFTs remain stable. Repeat Covid test on 06/30 and 07/03 remains positive. Will transfuse another unit of packed RBC today. Called family for update -explained family that patient is critically ill with very poor prognosis. 07/05: Patient on 70% FiO2 with PEEP of 14. h/h stable after transfusion. hyperkalemia improved, cont sodiumbicarbonate pill with TF. follow BMP. off levophed today, remains on amioderone. poor prognosis. 07/06: Patient remains on amiodarone drip, maintaining BP without any pressor. FiO2 requirement trended down to 60% with PEEP of 14. Continue to follow clinically. Plan to wean off amiodarone drip as tolerated. Wean off from sedation as tolerated. Updated family. Patient remains critically ill with poor prognosis. 07/07: Called family for update. Off amiodarone drip today, patient also off pressor. FiO2 requirement trended up again to 80-100%. Continue to provide supportive care, monitor clinically. Having difficulty to wean off from the vent support. Patient is persistently positive for COVID-19 and COVID-19 antibody is nonreactive. Patient remains critically ill with very poor prognosis. 07/08: Continue supportive care. Community Service Officer Coordinator procurement consultant and knitted cloth examiner input noted. Prognosis remains guarded to poor. Management per team. Critical care time 35-minute 07/09/20 patient is tachycardic. Heart rate 121. Hemoglobin 7.3. Patient is having hemodialysis. Continue supportive care. Patient having difficulty to wean off from the vent support. Prognosis is poor. Nephrology and cardiology follow-up. Recheck CBC BMP in the morning. Continue current management. 07/10/20 patient seen and examined, remains on full ventilator patient is doing better. Patient is off pressor. heart rate 123. Hemoglobin 6.8 and hematocrit 20.7. WBC is 18.1. Continue supportive care. Patient having difficulty to wean off from the vent support. We will started on Zosyn 4.5 g IV every 8 hours. Will transfuse 1 unit of packed red blood cell. Prognosis is poor. Nephrology and cardiology follow up. Recheck CBC BMP in the morning 07/11: remains off vasopressor, h/h appropriately responded to 1 unit PRBC. HD today. Remain on MV with fiO2 at 70%. peep 10. No acute events reported overnight. 07/12: Patient remains in atrial fibrillation on the monitoring tech, vas opressor support with Levophed and vasopressin, sedated with fentanyl and propofol. Vent settings: CMV 500/25/14/0.60. Patient remains hypercarbic on ABG 07/13: Patient remains on vasopressin, fentanyl and propofol with rectal tube in place. This morning some examination patient was on assist control 25/500/14/0.60. Patient received hemodialysis today. No acute events reported overnight. 07/14: Remains on vasopressin, fentanyl and propofol with tube in place. Rectal tube in place with noted blood clots, GI consulted, on 07/13 H/H dropped from 8.7/27 to 7.4/22 and anticoagulation discontinued. This morning I spoke to his who still wishes for the patient to remain a full code despite update with continued use of vasopressor (vasopressin), current ventilatory support (CMV 500/25/14/0.60) and recent development of rectal bleeding. Patient's family requests an update from [facility] and GI. Cardio changed amio from PO to IV given elevated HR 07/15: Today the patient received a total of 5 units of PRBC and is still having bleeding through his rectal tube. CTA abdomen/pelvis is pending, patient remains on Levophed, fentanyl, propofol, vasopressin and received hemodialysis today. He was also hyperkalemic today to 6 and he received insulin and D50. Extensive conversation with family conducted by [facility] and hospitalist and his and 2 daughters did visit him today at the bedside. 07/16: Continues with full ventilatory support. FMS still inplace with some loose bloody stool. Still on multiple pressors, Bilateral swollen and generalized anascara. Monitor H/H and transfuse as needed. Monitor K level. Discussed with family at bedside yesterday. 07/17: Continue supportive care, transfusion blood possible in am with HD, continue abx, very poor prognosis, blood pressure still labile. Discussed with nurse at bedside 07/18: CTA abdomen/pelvis completed, antibiotics changed to Zosyn per infectious disease, remains on mechanical ventilation 450/25/12/0.55 continue amiodarone drip for 24 more hours, blood culture grew Enterococcus. Remains sedated on propofol and fentanyl. Not on vasopressor support today 07/19: No acute events reported overnight, remains sedated with fentanyl and propofol and off vasopressor therapy today. 07/20: s/p debridement with surgery today, remains on fentanyl, propofol, Levophed and current vent settings 450/25/10/0.45. Patient will be transferred to a bariatric bed once available. 07/21: Continue current management, wean ventilator as tolerated, IV antibiotics deescalated to ampicillin. Per infectious disease no need to exchange/remove lines unless repeat blood cultures turn positive. The time my examination patient was sedated on fentanyl and propofol and remains off vasopressor support. 07/22: At the time my examination patient is sedated on fentanyl and propofol and remains off vasopressor support, repeat COVID-19 PCR negative. Patient remains on ampicillin. H/H remained stable and GI has signed off. Mechanical ventilation weaning as tolerated. 07/23. He remains sedated on fentanyl and propofol. On mechanical ventilation. On levophed. repeat COVID-19 PCR negative. Patient remains on ampicillin. H/H remained stable and GI has signed off. 07/24. He remains sedated and on mechanical ventilation. On levophed. repeat COVID-19 PCR negative. On ampicillin. ID recs appreciated. Labs reviewed 07/25: Patient remains sedated on fentanyl and Diprivan and remains on mechanical ventilation. Repeat CXR and still has leukocytosis. Patient is n.p.o. for trach and PEG with surgery. 07/26: Remains sedated on fentanyl and propofol. Remains on vasopressor support with Levophed. Current vent settings CMV 450/20/8/0.40. Patient is scheduled for PEG/trach with surgery. No acute events reported overnight. 07/27: Debridement with surgery to sacrum:, Activity restarted, remains sedated on propofol/fentanyl and Precedex support with Levophed. Current vent settings CMV 450/20/8/135. S/p trach/PEG with surgery 07/26. Patient remains afebrile how ever leukocytosis slightly worse today and he is still on his ampicillin. Patient was hypoglycemic overnight. 07/28: Patient remains sedated on propofol and fentanyl. Continue amiodarone drip for rate control. Patient be started on pressors of Levophed last evening. Patient currently with PSV/CPAP FiO2 35% PEEP of 8 and pressure support of 20. Wean mechanical ventilation as tolerated, VAP bundle. Continue hemodialysis per nephrology recommendations. Continue antibiotics per ID recommendations. Hold systemic anticoagulation in the setting of severe anemia. Patient with status post debridement on 07/27. 07/29: Continue sedation per pulmonary. Amiodarone drip for rate control. Continue vasopressors to maintain MAP > 65. Mechanical ventilation currently AC mode rate of 20 tidal volume 450, FiO2 35% and PEEP of 8. Wean mechanical ventilation as tolerated, VAP bundle. Continue hemodialysis per nephrology recommendations. Continue antibiotics per ID recommendations until 08/01/2020. Repeat blood cultures have been negative. Hold systemic anticoagulation in the setting of severe anemia. 07/30: Patient currently with AC mode rate of 14, tidal volume 450, FiO2 40% and PEEP of 8. Wean mechanical ventilation as tolerated, VAP bundle. Continue hemodialysis per nephrology recommendations. Continue antibiotics per ID recommendations. Hold systemic anticoagulation in the setting of severe anemia. The high probability of a clinically significant, sudden or life threatening de terioration of the [cardiac, respiratory and neurological] system(s) required my full and direct attention, intervention and personal management. The aggregate critical care time was [32] minutes. This time is in addition to time spent performing reported procedures but includes the following: [x] Data Review and interpretation [x] Patient assessment and monitoring of vital signs [x] Documentation [x] Medication orders and management History Interval history: No new issues overnight. Hospitalist Physical - Constitutional Vitals: Temp Pulse Resp BP Pulse Ox 99.2 F 129 H 17 104/54 95 07/30/20 08:00 07/30/20 10:00 07/30/20 10:00 07/30/20 10:00 07/30/20 10:00 General appearance: Present: no acute distress, well-nourished, other (Patient remains on mechanical ventilation) - EENT Eyes: Present: PERRL, EOM intact ENT: hearing intact, clear oral mucosa, dentition normal - Neck Neck: Present: supple, normal ROM - Respiratory Respiratory effort: normal Respiratory: bilateral: CTA - Cardiovascular Rhythm: regular Heart Sounds: Present: S1 & S2. Absent: gallop, rub - Extremities Extremities: no ischemia, No edema, Full ROM - Abdominal General gastrointestinal: soft, non-tender, non-distended, normal bowel sounds - Integumentary Integumentary: Present: clear, warm, dry - Neurologic Neurologic: CNII-XII intact, moves all extremities HEART Score - HEART Score Troponin: Troponin T < 0.010 ng/mL (0.00-0.029) 06/17/20 12:33 Results - Labs CBC & Chem 7: 07/29/20 04:39 07/29/20 04:39 Labs: Laboratory Last Values WBC 38.6 K/mm3 (4.5-11.0) H 07/29/20 04:39 RBC 2.15 M/mm3 (3.65-5.03) L 07/29/20 04:39 Hgb 6.6 gm/dl (11.8-15.2) L 07/29/20 04:39 Hct 19.9 % (35.5-45.6) L* 07/29/20 04:39 MCV 93 fl (84-94) 07/29/20 04:39 MCH 31 pg (28-32) 07/29/20 04:39 MCHC 33 % (32-34) 07/29/20 04:39 RDW 17.5 % (13.2-15.2) H 07/29/20 04:39 Plt Count 187 K/mm3 (140-440) 07/29/20 04:39 Lymph % (Auto) 3.2 % (13.4-35.0) L 07/29/20 04:39 [place] % (Auto) 7.0 % (0.0-7.3) 07/29/20 04:39 Eos % (Auto) 2.1 % (0.0-4.3) 07/29/20 04:39 Baso % (Auto) 1.2 % (0.0-1.8) 07/29/20 04:39 Lymph # (Auto) 1.2 K/mm3 (1.2-5.4) 07/29/20 04:39 [place] # (Auto) 2.7 K/mm3 (0.0-0.8) H 07/29/20 04:39 Eos # (Auto) 0.8 K/mm3 (0.0-0.4) H 07/29/20 04:39 Baso # (Auto) 0.4 K/mm3 (0.0-0.1) H 07/29/20 04:39 Add Manual Diff Complete 07/27/20 04:00 Total Counted 100 07/27/20 04:00 Seg Neutrophils % 86.5 % (40.0-70.0) H 07/29/20 04:39 Seg Neuts % (Manual) 85.0 % (40.0-70.0) H 07/27/20 04:00 Band Neutrophils % 1.0 % 07/26/20 Unknown Lymphocytes % (Manual) 4.0 % (13.4-35.0) L 07/27/20 04:00 Reactive Lymphs % (Man) 1.0 % 06/23/20 04:00 Monocytes % (Manual) 6.0 % (0.0-7.3) 07/27/20 04:00 Eosinophils % (Manual) 4.0 % (0.0-4.3) 07/27/20 04:00 Basophils % (Manual) 1.0 % (0.0-1.8) 07/27/20 04:00 Metamyelocytes % 1.0 % 07/26/20 Unknown Myelocytes % 1.0 % 07/25/20 05:39 Promyelocytes % 0 % 07/17/20 15:25 Nucleated RBC % Not Reportable 07/27/20 04:00 Seg Neutrophils # 33.4 K/mm3 (1.8-7.7) H 07/29/20 04:39 Seg Neutrophils # Man 23.0 K/mm3 (1.8-7.7) H 07/27/20 04:00 Band Neutrophils # 0.0 K/mm3 07/27/20 04:00 Lymphocytes # (Manual) 1.1 K/mm3 (1.2-5.4) L 07/27/20 04:00 Abs React Lymphs (Man) 0.0 K/mm3 07/27/20 04:00 Monocytes # (Manual) 1.6 K/mm3 (0.0-0.8) H 07/27/20 04:00 Eosinophils # (Manual) 1.1 K/mm3 (0.0-0.4) H 07/27/20 04:00 Basophils # (Manual) 0.3 K/mm3 (0.0-0.1) H 07/27/20 04:00 Metamyelocytes # 0.0 K/mm3 07/27/20 04:00 Myelocytes # 0.0 K/mm3 07/27/20 04:00 Promyelocytes # 0.0 K/mm3 07/27/20 04:00 Blast Cells # 0.0 K/mm3 07/27/20 04:00 Pathologist Review 07/17/20 15:25 WBC Morphology Not Reportable 07/27/20 04:00 Hypersegmented Neuts Not Reportable 07/27/20 04:00 Hyposegmented Neuts Not Reportable 07/27/20 04:00 Hypogranular Neuts Not Reportable 07/27/20 04:00 Smudge Cells Not Reportable 07/27/20 04:00 Toxic Granulation Not Reportable 07/27/20 04:00 Toxic Vacuolation Not Reportable 07/27/20 04:00 Dohle Bodies Not Reportable 07/27/20 04:00 Pelger-Huet Anomaly Not Reportable 07/27/20 04:00 Carlito Rods Not Reportable 07/27/20 04:00 Platelet Estimate Consistent w auto 07/27/20 04:00 Clumped Platelets Not Reportable 07/27/20 04:00 Plt Clumps, EDTA Not Reportable 07/27/20 04:00 Large Platelets Not Reportable 07/27/20 04:00 Giant Platelets Not Reportable 07/27/20 04:00 Platelet Satelliting Not Reportable 07/27/20 04:00 Plt Morphology Comment Not Reportable 07/27/20 04:00 RBC Morphology Not Reportable 07/27/20 04:00 Dimorphic RBCs Not Reportable 07/27/20 04:00 Polychromasia Not Reportable 07/27/20 04:00 Hypochromasia 1+ 07/27/20 04:00 Poikilocytosis Not Reportable 07/27/20 04:00 Anisocytosis Not Reportable 07/27/20 04:00 Microcytosis Not Reportable 07/27/20 04:00 Macrocytosis Not Reportable 07/27/20 04:00 Spherocytes Not Reportable 07/27/20 04:00 Pappenheimer Bodies Not Reportable 07/27/20 04:00 Sickle Cells Not Reportable 07/27/20 04:00 Target Cells Not Reportable 07/27/20 04:00 Tear Drop Cells Not Reportable 07/27/20 04:00 Ovalocytes Not Reportable 07/27/20 04:00 Stomatocytes Few 07/27/20 04:00 Helmet Cells Not Reportable 07/27/20 04:00 Brothers-Schwana Bodies Not Reportable 07/27/20 04:00 [place] Rings Not Reportable 07/27/20 04:00 Livier Cells Not Reportable 07/27/20 04:00 Bite Cells Not Reportable 07/27/20 04:00 Crenated Cell Not Reportable 07/27/20 04:00 Elliptocytes Not Reportable 07/27/20 04:00 Acanthocytes (Spur) Not Reportable 07/27/20 04:00 Rouleaux Not Reportable 07/27/20 04:00 Hemoglobin C Crystals Not Reportable 07/27/20 04:00 Schistocytes Not Reportable 07/27/20 04:00 Malaria parasites Not Reportable 07/27/20 04:00 Victoriano Bodies Not Reportable 07/27/20 04:00 Hem Pathologist Commnt No 07/27/20 04:00 PT 15.3 Sec. (12.2-14.9) H 07/24/20 20:40 INR 1.21 (0.87-1.13) H 07/24/20 20:40 APTT 36.1 Sec. (24.2-36.6) 07/24/20 20:40 Fibrinogen 419 mg/dl (211-480) 07/15/20 08:21 D-Dimer 6608.00 ng/mlDDU (0-234) H 07/03/20 14:50 Heparin Anti-Xa Level < 0.10 U.I./ml (0.3-0.7) L 06/26/20 01:30 ABG pH 7.333 pH Units (7.350-7.450) L 07/28/20 14:31 POC ABG pCO2 46.9 mmHg (32.0-48.0) 07/23/20 04:56 ABG pCO2 44.4 mm Hg 07/28/20 14:31 POC ABG pO2 75.7 mmHg (83-108) L 07/23/20 04:56 ABG pO2 68.0 mm Hg (80.0-90.0) L 07/28/20 14:31 POC ABG HCO3 25.6 07/23/20 04:56 ABG HCO3 23.1 mmol/L (20.0-26.0) 07/28/20 14:31 ABG O2 Saturation 92.4 % (95.0-99.0) L 07/28/20 14:31 ABG O2 Content 11.4 (0.0-44) 07/28/20 14:31 POC ABG Base Excess -0.1 07/23/20 04:56 ABG Base Excess -2.7 mmol/L (-2.0-3.0) L 07/28/20 14:31 ABG Hemoglobin 9.0 gm/dl (14.0-18.0) L 07/28/20 14:31 ABG Oxyhemoglobin 91.7 (94-98) L 07/22/20 04:11 ABG Carboxyhemoglobin 2.2 % (0.0-5.0) 07/28/20 14:31 ABG Methemoglobin 0.6 % (0.0-1.5) 07/28/20 14:31 ABG Sodium 139.7 mmol/L (136.0-145.0) 07/23/20 04:56 ABG Potassium 3.1 mmol/L (3.40-4.50) L 07/23/20 04:56 ABG Chloride 108.0 mmol/L (98-107) H 07/23/20 04:56 ABG Glucose 101 mg/dL (65-95) H 07/23/20 04:56 Oxyhemoglobin 89.9 % (95.0-99.0) L 07/28/20 14:31 Carboxyhemoglobin 1.3 (0.5-1.5) 07/22/20 04:11 FiO2 35 % 07/28/20 14:31 FiO2 % 40 07/23/20 04:56 Sodium 135 mmol/L (137-145) L 07/29/20 04:39 Potassium 3.1 mmol/L (3.6-5.0) L 07/29/20 04:39 Chloride 98.5 mmol/L (98-107) 07/29/20 04:39 Carbon Dioxide 23 mmol/L (22-30) 07/29/20 04:39 Anion Gap 17 mmol/L 07/29/20 04:39 BUN 42 mg/dL (9-20) H 07/29/20 04:39 Creatinine 2.5 mg/dL (0.8-1.3) H 07/29/20 04:39 Estimated GFR 32 ml/min 07/29/20 04:39 BUN/Creatinine Ratio 17 % 07/29/20 04:39 Glucose 109 mg/dL (75-100) H 07/29/20 04:39 POC Glucose 99 mg/dL (70-105) 07/30/20 05:08 Lactic Acid 0.90 mmol/L (0.7-2.0) 07/23/20 Unknown Calcium 7.5 mg/dL (8.4-10.2) L 07/29/20 04:39 Phosphorus 9.40 mg/dL (2.5-4.5) H 06/30/20 03:50 Magnesium 2.70 mg/dL (1.7-2.3) H 06/18/20 20:33 Ferritin 1171.0 ng/mL (30.0-300.0) H 07/03/20 14:50 Total Bilirubin 0.20 mg/dL (0.1-1.2) 07/24/20 06:40 Direct Bilirubin 0.5 mg/dL (0-0.2) H 07/05/20 08:21 Indirect Bilirubin 0.1 mg/dL 07/05/20 08:21 AST 46 units/L (5-40) H 07/24/20 06:40 ALT 74 units/L (7-56) H 07/24/20 06:40 Alkaline Phosphatase 180 units/L (35-129) H 07/24/20 06:40 Lactate Dehydrogenase 525 units/L (91-180) H 07/03/20 14:50 Total Creatine Kinase 618 units/L (55-170) H 06/29/20 Unknown Troponin T < 0.010 ng/mL (0.00-0.029) 06/17/20 12:33 C-Reactive Protein 31.50 mg/dL (0.00-1.30) H 07/03/20 14:50 Total Protein 4.6 g/dL (6.3-8.2) L 07/24/20 06:40 Albumin 2.0 g/dL (3.9-5) L 07/24/20 06:40 Albumin/Globulin Ratio 0.8 % 07/24/20 06:40 Triglycerides 184 mg/dL (2-149) H 07/30/20 Unknown Procalcitonin 6.05 ng/mL (<0.15) 07/13/20 06:59 Arterial Blood Glucose 101 mg/dL (65-95) H 07/23/20 04:56 Arterial Blood Ionized Calcium 5.3 mg/dL (4.6-5.3) 07/23/20 04:56 Urine Color Yellow (Yellow) 06/17/20 15:57 Urine Turbidity Clear (Clear) 06/17/20 15:57 Urine pH 6.0 (5.0-7.0) 06/17/20 15:57 Ur Specific Harmony 1.019 (1.003-1.030) 06/17/20 15:57 Urine Protein 30 mg/dl mg/dL (Negative) 06/17/20 15:57 Urine Glucose (UA) Neg mg/dL (Negative) 06/17/20 15:57 Urine Ketones Neg mg/dL (Negative) 06/17/20 15:57 Urine Blood Sm (Negative) 06/17/20 15:57 Urine Nitrite Neg (Negative) 06/17/20 15:57 Ur Reducing Substances Not Reportable 06/17/20 15:57 Urine Bilirubin Neg (Negative) 06/17/20 15:57 Urine Ictotest Not Reportable 06/17/20 15:57 Urine Urobilinogen < 2.0 mg/dL (<2.0) 06/17/20 15:57 Ur Leukocyte Esterase Neg (Negative) 06/17/20 15:57 Urine WBC (Auto) 1.0 /HPF (0.0-6.0) 06/17/20 15:57 Urine RBC (Auto) 2.0 /HPF (0.0-6.0) 06/17/20 15:57 Urine Mucus Few /HPF 06/17/20 15:57 Urine Creatinine 192.4 mg/dL (0.1-20.0) H 06/18/20 15:00 Urine Sodium 28 mmol/L 06/18/20 15:00 Urine Chloride 31.1 mmolL (110-250) L 06/18/20 15:00 Nasal Screen MRSA (PCR) Negative (Negative) 06/19/20 10:38 Vancomycin Trough 22.7 ug/mL (5.0-20.0) H 06/20/20 08:25 Random Vancomycin 13.5 ug/mL (0-40.0) 07/16/20 07:17 Coronavirus (PCR) Negative (Negative) 07/22/20 Unknown Hepatitis A IgM Ab Non-reactive (NonReactive) 06/22/20 17:00 Hep Bs Antigen Non-reactive (Negative) 06/22/20 17:00 Hep B Core IgM Ab Non-reactive (NonReactive) 06/22/20 17:00 Hepatitis C Antibody Non-reactive (NonReactive) 06/22/20 17:00 SARS-CoV-2 IgG Ab Nonreactive (NonReactive) 07/04/20 05:20 Blood Type A POSITIVE 07/27/20 22:36 Antibody Screen Negative 07/27/20 22:36 Crossmatch See Detail 07/27/20 22:36 - Diagnostic Impressions Diagnostic Impressions: Echocardiogram 06/29/20 06:00 Transthoracic Echocardiogram Indication: A-fib BP: 105/47 HR: 99 Conclusions *The study is technically very difficult and limited due to poor acoustic windows. *Global left ventricular wall motion and contractility are within normal limits. *The estimated ejection fraction is 55-60%. *There is no pericardial effusion. Findings Procedure Info: The study quality is technically difficult. The study is technically limited due to poor acoustic windows. Left Ventricle: Global left ventricular wall motion and contractility are within normal limits. Global left ventricular systolic function is normal. The estimated ejection fraction is 55-60%. Left Atrium: The left atrium is not well visualized. Right Ventricle: The right ventricle is not well visualized. Right Atrium: The right atrium is not well visualized. Aortic Valve: The aortic valve is not well visualized. Mitral Valve: The mitral valve is not well visualized. Tricuspid Valve: The tricuspid valve is not well visualized. Pulmonic Valve: The pulmonic valve is not well visualized. Pericardium: There is no pericardial effusion. Venous: There is no change in the dimension of the inferior vena cava with respiration consistent with markedly increased right atrial pressure. Newell/IV: Voiding Method Incontinent Active Medications - Current Medications Current Medications: Generic Name Dose Route Start Last Admin Trade Name Freq PRN Reason Stop Dose Admin Acetaminophen 650 mg 06/17/20 14:17 07/03/20 09:16 Acetaminophen 325 Mg Tab PO 650 mg Q4H PRN Administration Pain MILD(1-3)/Fever >100.5/ROBERTS Albuterol 2.5 mg 07/19/20 12:15 Albuterol 2.5 Mg/3 Ml Nebu IH Q6HRT PRN Shortness Of Breath Alteplase, Recombinant 2 mg 07/27/20 18:40 Alteplase 2 Mg Inj IV PAM PRN LINE FLUSH Amiodarone HCl 200 mg 07/19/20 14:00 07/30/20 09:44 Amiodarone 200 Mg Tab PO 200 mg BID CONNOR Administration Lipase/Protease/Amylase 1 each 06/19/20 12:15 Lipase 10,500/Protease 25,000/Amylase 43,750 (Units) Dr Cap FEEDTUBE PRN PRN For Clogged Feeding Tube Ascorbic Acid 250 mg 06/17/20 22:00 07/30/20 09:44 Ascorbic Acid 250 Mg Tab PO 250 mg BID CONNOR Administration Cholecalciferol 1,000 unit 06/18/20 10:00 07/30/20 09:44 Cholecalciferol (Vit D3) 1000 Unit (25 Mcg) Tab PO 1,000 unit DAILY CONNOR Administration Dextrose 50 ml 07/26/20 22:00 07/27/20 06:42 Dextrose 50% In Water (25gm) 50 Ml Syringe IV 50 ml Q30MIN PRN Administration Hypoglycemia Protocol Docusate Sodium 100 mg 06/23/20 15:00 07/30/20 09:45 Docusate Sodium 100 Mg/10 Ml Oral Liqd FEEDTUBE 100 mg BID CONNOR Administration Fentanyl 50 mcg 06/18/20 01:02 07/27/20 16:59 Fentanyl 100 Mcg/2 Ml Inj IV 50 mcg Q10MIN PRN Administration ANALGESIA Heparin Sodium (Porcine) 5,000 unit 06/22/20 12:53 07/28/20 20:45 Heparin 10,000 Unit/1 Ml Vial IV 5,000 unit PAM PRN Administration hemodialysis Hydrophilic Ointment 1 applic 06/17/20 22:52 07/12/20 20:22 Lip Therapy Vaseline TP 1 applic Q2HR PRN Administration Dry Lips Propofol 1,000 mg in 100 mls @ 3.402 mls/hr 06/18/20 01:00 07/30/20 04:26 Diprivan 10 Mg/Ml IV 5 mcg/kg/min TITR CONNOR 3.402 mls/hr Administration Protocol 5 MCG/KG/MIN Fentanyl Citrate 2,000 mcg in 100 mls @ 8 mls/hr 06/18/20 02:00 07/30/20 10:27 Fentanyl Drip Premix IV 4 mcg/kg/hr TITR CONNOR 32 mls/hr Administration Protocol 1 MCG/KG/HR Norepinephrine 4 mg in 250 mls @ 7.5 mls/hr 07/08/20 02:06 07/30/20 04:15 Levophed Drip 4 Mg/Ns 250 Ml IV 10 mcg/min TITR CONNOR 37.5 mls/hr Administration Protocol 2 MCG/MIN Vasopressin 20 unit/ Sodium 101 mls @ 9.09 mls/hr 07/11/20 11:00 07/18/20 15:36 Chloride IV 0 units/min TITR CONNOR 0 mls/hr Titration Protocol 0.03 UNITS/MIN Ampicillin Sodium 2 gm in 100 mls @ 100 mls/hr 07/21/20 12:00 07/30/20 00:20 Ampicillin/Ns 2 Gm/100 Ml IV 08/01/20 12:59 100 mls/hr Q12H CONNOR Administration Protocol Amiodarone HCl 900 mg/ 500 mls @ 33.333 mls/hr 07/27/20 17:00 07/29/20 12:22 Dextrose IV 0.5 mg/min DIRECT CONNOR 16.667 mls/hr Administration Protocol 1 MG/MIN Sodium Chloride 100 mls @ 999 mls/hr 07/27/20 18:40 Nacl 0.9% IV PAM PRN Hypotension Insulin Human Regular 0 units 06/18/20 12:00 07/30/20 05:17 Insulin Regular, Human 100 Units/1 Ml SUB-Q Not Given Q6HR CONNOR Protocol Multi-Ingred Cream/Lotion/Oil/Oint 1 applic 06/17/20 22:52 07/12/20 20:22 Mineral Oil/Petrolatum, White Ophth Oint 3.5 Gm OU 1 applic Q4HR PRN Administration Dry Eye(s) Ondansetron HCl 4 mg 06/17/20 14:17 Ondansetron 4 Mg/2 Ml Inj IV Q8H PRN Nausea And Vomiting Pantoprazole Sodium 40 mg 07/16/20 22:00 07/30/20 09:45 Pantoprazole 40 Mg Inj IV 40 mg BID CONNOR Administration Polyethylene Glycol 17 gm 06/23/20 15:00 07/30/20 09:44 Polyethylene Glycol 3350 17 Gm Powder PO 17 gm QDAY CONNOR Administration Quetiapine Fumarate 200 mg 06/28/20 13:00 07/30/20 09:45 Quetiapine 200 Mg Tab PO 200 mg BID CONNOR Administration Scopolamine 1 each 07/29/20 14:00 07/29/20 13:39 Scopolamine Transdermal Patch 72 Hr TD 1 each Q3D CONNOR Administration Simple Syrup 15 ml 06/19/20 12:15 07/26/20 13:55 Simple Syrup 15 Ml FEEDTUBE 15 ml PRN PRN Administration Hypoglycemia Simple Syrup 30 ml 06/19/20 12:15 07/19/20 06:04 Simple Syrup 15 Ml FEEDTUBE 30 ml PRN PRN Administration Hypoglycemia Sodium Bicarbonate 325 mg 06/19/20 12:15 07/11/20 20:00 Sodium Bicarbonate 325 Mg Tab FEEDTUBE 325 mg PRN PRN Administration For Clogged Feeding Tube Sodium Chloride 10 ml 06/17/20 22:00 07/30/20 10:20 Sodium Chloride 0.9% 10 Ml Flush Syringe IV 10 ml BID CONNOR Administration Sodium Chloride 10 ml 06/17/20 14:17 07/30/20 09:46 Sodium Chloride 0.9% 10 Ml Flush Syringe IV 10 ml PRN PRN Administration LINE FLUSH Sodium Hypochlorite 1 applic 07/20/20 10:00 07/30/20 09:45 Sodium Hypochlorite, Dakin's 1/2 Strength (0.25%) 473 Ml Topical Soln TP 1 applicatio BID CONNOR Administration Zinc Sulfate 220 mg 06/17/20 22:00 07/30/20 09:45 Zinc Sulfate 220 Mg Cap PO 220 mg BID CONNOR Administration Nutrition/Malnutrition Assess - Dietary Evaluation Nutrition/Malnutrition Findings: Nutrition Notes Start: 06/18/20 10:28 Freq: Status: Active Protocol: Document 07/28/20 10:21 AL (Rec: 07/28/20 10:34 AL [id number]) Co-Sign 07/28/20 10:21 LP Nutrition Notes Initial or Follow up Reassessment Current Diagnosis Acute Kidney Injury,Sepsis, Respiratory Failure Other Pertinent Diagnosis Pneu, on HD. Current Diet Nepro 1.8 at 50 ml/hr Labs/Tests K 3.2 BUN 35 Cr 2.3 Pertinent Medications Levophed Propofol 10.2 ml/hr (269 kcal) Height 6 ft Weight 157.9 kg Diamond Body Weight (kg) 80.90 BMI 47.2 Weight change and time frame 6.3% wt loss (10.6 kg). Pt on HD. Weight Status Morbidly Obese Subjective/Other Information F/U for trach/PEG placement and TF tolerance. Trach/PEG placed on 07/26. Pt tolerating TF at 50 ml/hr (goal rate). Percent of energy/protein needs met: 98%/60% Burn Absent Trauma Absent GI Symptoms Other Skin Integrity/Comment Unstageable Sacral Pressure Ulcer Current % PO Negligible Minimum of two criteria No physical signs of malnutrition #3 Nutrition Diagnosis Increased nutrient needs ( specify in comment below) Comments: Protein Diagnosis Progress(for reassessment Continues documentation) #1 Nutrition Diagnosis Inadequate oral intake Diagnosis Progress(for reassessment Continues documentation) Is patient on ventilator? Yes Is Patient Ambulatory and/or Out of Bed No REE-([facility]-confined to bed) 2904.456 Kcal/Kg value to use for calculation 14 Approximate Energy Requirements Using 2211 kcal/Kg Calculation Used for Recommendations Kcal/kg Additional Notes Protein: Up to 162 g (up to 2. 5 g/kg IBW) Fluids: 1,000 ml + output Nutrition Intervention Change Diet Order: TF Nutrition Support: Nepro 1.8 at 55 ml/hr Flush 250 ml q4h Kcal 2,376 Protein (gm) 107 Fluid (mL) 959 Add Supplement/Snack (indicate name/kcal Gee BID /protein ) Provides kCal: 190 Provides Protein (gm) 5 Goal #1 TF tolerance at new goal rate Goal #2 Meet energy and protein needs as best as possible via TF Goal #3 Wound healing. Anticipated Discharge Needs: Nepro 1.8 at 55 ml/hr Flush 250 ml q4h Follow-Up By: 08/01/20 Additional Comments F/U for TF tolerance & new TF goal rate
[2020-07-30] MEDS: AMIODARONE 900 MG in DEXTROSE 5% IN WATER 482 ML IV SCH (16:51)
--- NOTE | 2020-07-30 17:02 | Progress Note ---
Assessment and Plan Acute hypoxemic respiratory failure due to COVID-19 Severe COVID infection Severe Sepsis with shock Bilateral pneumonia Acute kidney injury (GIRISH) with acute tubular necrosis (ATN) Elevated liver enzymes Obesity - continue daily SAT's & SBT's as tolerated - wean vasopressors for target MAP > 65 mmHg - continue HD/UF per nephrology prescription - continue care as below otherwise; - continue wound care per WCN / RN - continue on bariatric bed - continue to avoid supine position as much as possible - adjust ant-infective's per ID rec's (Ampicillin) - continue bid protonix - continue tube feeds at goal rate as tolerated - continue HD/UF per nephrology team for toxin and volume clearance - continue bowel regimen - Continue to wean supplemental oxygen for O2 sats >92% - Monitor blood pressure closely while optimizing sedation,wean vasopressor support for MAP > 65 mmHg - VAP bundle addressed, aspiration precautions HOB >40 - continue lung protective strategies, permissive hypercapnic acceptable. - continue bronchodilators with routine trach care and pulmonary hygiene per RT - wean per pulmonary driven protocols otherwise - accuchecks with glycemic control per SSI (While critically ill target blood glucose of 140-180 mg/dL; avoid hypoglycemia) - sedation prn for target RASS -1 to -2 - continue enteral nutritional support at goal rate as tolerated - on antibiotics per ID recommendations - follow clinically re: fevers / WBC - Monitor liver function test ,avoid hepatotoxic agents - azotemia per nephrology rec's - Avoid nephrotoxins, renally dose all medications, conservative fluid management - continue to avoid benzodiazepines, reduce the possibility of delirium, - prn analgesia per CPOT score - Maintenance of sleep-wake cycle, avoid delirium - Stress ulcer prophylaxis, Pantoprazole - PT/OT/ROM exercises - Mobility protocols for pressure ulcer prevention - CXR, ABG in am - CBC, CMP in am - Supportive transfusions to keep HgB >7g/dL - Monitor hemodynamics closely - continue other care per attending / other consultants COVID SPECIFIC INTERVENTIONS - s/p steroids: Dexamethasone - completed Remdesivir - monitor inflammatory markers prn - ferritin, D-dimer, CRP, LDH per facility protocol - continue anticoagulation per System Protocol based on d-dimer (on hold due to bleeding) - continue contact and airborne isolation CONDITION: CRITICAL PROGNOSIS: GUARDED CODE STATUS: FULL CODE The high probability of a clinically significant, sudden or life-threatening deterioration of the [respiratory, cardiovascular, hematologic & neurologic] system(s) required my full and direct attention, intervention and personal management. The aggregate critical care time was [36] minutes without overlap. Time includes spent on; [x] Data Review and interpretation [x] Patient assessment and monitoring of vital signs [x] Documentation [x] Medication orders and management He was evaluated in the context of the global COVID-19 pandemic, which necessitated consideration that the patient might be at risk for infection with the virus that causes COVID-19. Institutional protocols and algorithms that pertain to the evaluation of patients at risk for COVID-19 are in a state of rapid change based on information released by regulatory bodies including the CDC and federal and state organizations. These policies and algorithms were followed during the patient's care in the ICU Please note that these policies, procedures and recommendations changed on a rapid basis. Subjective Date of service: 07/30/20 Principal diagnosis: ARF; Septic Shock; COVID-19 PNA; Atrial fibrillation; Obesity Interval history: Patient is seen today for: Ac hypoxemic respiratory failure; COVID-19; Severe Sepsis with shock; Zackery. pneumonia; GIRISH; Elevated liver enzymes; Obesity Seen and examined at bedside; 24hour events reviewed; nursing and respiratory ca re staff consulted; no adverse overnight events reported to me; resting in bed; remains on MVS; work of breathing a little labored today; no emesis or overt aspiration and no gross bleeding; afebrile Objective Vital Signs - 12hr 07/30/20 07/30/20 07/30/20 05:30 06:00 06:30 Temperature Pulse Rate 129 H 131 H 126 H Pulse Rate [ From Monitor] Respiratory 22 24 21 Rate Blood Pressure 90/50 117/59 106/54 O2 Sat by Pulse 97 97 97 Oximetry O2 Sat by Pulse Oximetry [ Assessment] 07/30/20 07/30/20 07/30/20 07:00 07:30 08:00 Temperature 99.2 F Pulse Rate 129 H 127 H 129 H Pulse Rate [ 129 H From Monitor] Respiratory 22 20 23 Rate Blood Pressure 96/54 107/54 100/53 O2 Sat by Pulse 97 96 96 Oximetry O2 Sat by Pulse Oximetry [ Assessment] 07/30/20 07/30/20 07/30/20 08:30 08:36 08:50 Temperature Pulse Rate 129 H 128 H 133 H Pulse Rate [ From Monitor] Respiratory 22 18 Rate Blood Pressure 102/54 102/54 137/64 O2 Sat by Pulse 97 100 94 Oximetry O2 Sat by Pulse Oximetry [ Assessment] 07/30/20 07/30/20 07/30/20 09:00 09:30 10:00 Temperature Pulse Rate 132 H 129 H 129 H Pulse Rate [ From Monitor] Respiratory 31 H 21 17 Rate Blood Pressure 121/68 108/55 104/54 O2 Sat by Pulse 94 96 95 Oximetry O2 Sat by Pulse Oximetry [ Assessment] 07/30/20 07/30/20 07/30/20 10:30 11:00 11:30 Temperature Pulse Rate 129 H 117 H 131 H Pulse Rate [ From Monitor] Respiratory 15 21 31 H Rate Blood Pressure 100/53 105/55 117/59 O2 Sat by Pulse 95 94 93 Oximetry O2 Sat by Pulse Oximetry [ Assessment] 07/30/20 07/30/20 07/30/20 12:00 12:10 12:30 Temperature 99.8 F H Pulse Rate 127 H 114 H 130 H Pulse Rate [ 129 H From Monitor] Respiratory 25 H 29 H Rate Blood Pressure 111/55 111/55 108/60 O2 Sat by Pulse 94 94 96 Oximetry O2 Sat by Pulse Oximetry [ Assessment] 07/30/20 07/30/20 07/30/20 13:00 13:30 14:00 Temperature Pulse Rate 130 H 129 H 129 H Pulse Rate [ From Monitor] Respiratory 21 25 H 25 H Rate Blood Pressure 120/58 99/49 112/58 O2 Sat by Pulse 96 95 96 Oximetry O2 Sat by Pulse Oximetry [ Assessment] 07/30/20 07/30/20 07/30/20 14:30 14:46 15:00 Temperature Pulse Rate 128 H 117 H Pulse Rate [ From Monitor] Respiratory 24 26 H Rate Blood Pressure 108/52 99/49 O2 Sat by Pulse 94 94 Oximetry O2 Sat by Pulse 91 Oximetry [ Assessment] 07/30/20 07/30/20 07/30/20 15:30 16:00 16:49 Temperature 100.5 F H Pulse Rate 129 H 129 H Pulse Rate [ From Monitor] Respiratory 22 Rate Blood Pressure 104/55 107/58 O2 Sat by Pulse 94 93 Oximetry O2 Sat by Pulse Oximetry [ Assessment] Constitutional: appears uncomfortable, other (morbidly obese, atraumatic, normocephalic, mild resp distress, orally intubated) Eyes: non-icteric ENT: oropharynx moist, other (s/p tracheostomy) Neck: supple, no lymphadenopathy, other (Large , short neck) Effort: mildly labored Ascultation: Bilateral: diminished breath sounds, rhonchi Percussion: Bilateral: not dull Cardiovascular: irregular rhythm, other (S1,S2) Gastrointestinal: normoactive bowel sounds, soft, non-tender, non-distended (protuberant) Integumentary: rash, other (Femoral CVC, Newell catheter) Extremities: pink and warm, pulses normal, no ischemia or petechiae, edema (trace to 1+) Neurologic: non-focal exam (grossly), pupils equal and round, CN II-XII normal, other (unable to assess, sedated) Psychiatric: other (unable to assess, sedated) CBC and BMP: 07/31/20 09:00 07/31/20 09:00 ABG, PT/INR, D-dimer: ABG ABG pH 7.333 pH Units (7.350-7.450) L 07/28/20 14:31 POC ABG pCO2 46.9 mmHg (32.0-48.0) 07/23/20 04:56 ABG pCO2 44.4 mm Hg 07/28/20 14:31 POC ABG pO2 75.7 mmHg (83-108) L 07/23/20 04:56 ABG pO2 68.0 mm Hg (80.0-90.0) L 07/28/20 14:31 POC ABG HCO3 25.6 07/23/20 04:56 ABG O2 Saturation 92.4 % (95.0-99.0) L 07/28/20 14:31 PT/INR, D-dimer PT 15.3 Sec. (12.2-14.9) H 07/24/20 20:40 INR 1.21 (0.87-1.13) H 07/24/20 20:40 D-Dimer 6608.00 ng/mlDDU (0-234) H 07/03/20 14:50 Abnormal lab findings: Abnormal Labs 06/17/20 06/17/20 06/17/20 12:33 12:33 12:33 WBC 19.5 H RBC 5.18 H Hgb 15.5 H Hct MCHC RDW Plt Count Lymph % (Auto) 3.8 L [place] % (Auto) Lymph # (Auto) 0.7 L [place] # (Auto) Eos # (Auto) Baso # (Auto) Seg Neutrophils % Seg Neuts % (Manual) 99.0 H Lymphocytes % (Manual) 1.0 L Monocytes % (Manual) Basophils % (Manual) Nucleated RBC % Seg Neutrophils # 18.2 H Seg Neutrophils # Man 19.3 H Lymphocytes # (Manual) 0.2 L Monocytes # (Manual) Eosinophils # (Manual) Basophils # (Manual) PT 16.5 H INR 1.33 H APTT D-Dimer 1025.04 H Heparin Anti-Xa Level ABG pH POC ABG pCO2 POC ABG pO2 ABG pO2 ABG HCO3 ABG O2 Saturation ABG Base Excess ABG Hemoglobin ABG Oxyhemoglobin ABG Sodium ABG Potassium ABG Chloride ABG Glucose Oxyhemoglobin Carboxyhemoglobin Sodium 130 L Potassium 3.4 L Chloride 95.0 L Carbon Dioxide BUN 21 H Creatinine Glucose 137 H POC Glucose Lactic Acid Calcium 7.9 L Phosphorus Magnesium Ferritin Direct Bilirubin AST 84 H ALT 67 H Alkaline Phosphatase Lactate Dehydrogenase 437 H Total Creatine Kinase 310 H C-Reactive Protein 27.90 H Total Protein Albumin 2.9 L Triglycerides Arterial Blood Glucose Arterial Blood Ionized Calcium Urine Creatinine Urine Chloride Vancomycin Trough Coronavirus (PCR) Crossmatch 06/17/20 06/17/20 06/17/20 12:33 12:33 14:48 WBC RBC Hgb Hct MCHC RDW Plt Count Lymph % (Auto) [place] % (Auto) Lymph # (Auto) [place] # (Auto) Eos # (Auto) Baso # (Auto) Seg Neutrophils % Seg Neuts % (Manual) Lymphocytes % (Manual) Monocytes % (Manual) Basophils % (Manual) Nucleated RBC % Seg Neutrophils # Seg Neutrophils # Man Lymphocytes # (Manual) Monocytes # (Manual) Eosinophils # (Manual) Basophils # (Manual) PT INR APTT D-Dimer Heparin Anti-Xa Level ABG pH POC ABG pCO2 POC ABG pO2 ABG pO2 ABG HCO3 ABG O2 Saturation ABG Base Excess ABG Hemoglobin ABG Oxyhemoglobin ABG Sodium ABG Potassium ABG Chloride ABG Glucose Oxyhemoglobin Carboxyhemoglobin Sodium Potassium Chloride Carbon Dioxide BUN Creatinine Glucose POC Glucose Lactic Acid 2.50 H* 2.20 H* Calcium Phosphorus Magnesium Ferritin 2297.0 H Direct Bilirubin AST ALT Alkaline Phosphatase Lactate Dehydrogenase Total Creatine Kinase C-Reactive Protein Total Protein Albumin Triglycerides Arterial Blood Glucose Arterial Blood Ionized Calcium Urine Creatinine Urine Chloride Vancomycin Trough Coronavirus (PCR) Crossmatch 06/17/20 06/17/20 06/17/20 14:48 14:48 14:48 WBC RBC Hgb Hct MCHC RDW Plt Count Lymph % (Auto) [place] % (Auto) Lymph # (Auto) [place] # (Auto) Eos # (Auto) Baso # (Auto) Seg Neutrophils % Seg Neuts % (Manual) Lymphocytes % (Manual) Monocytes % (Manual) Basophils % (Manual) Nucleated RBC % Seg Neutrophils # Seg Neutrophils # Man Lymphocytes # (Manual) Monocytes # (Manual) Eosinophils # (Manual) Basophils # (Manual) PT INR APTT D-Dimer 939.89 H Heparin Anti-Xa Level ABG pH POC ABG pCO2 POC ABG pO2 ABG pO2 ABG HCO3 ABG O2 Saturation ABG Base Excess ABG Hemoglobin ABG Oxyhemoglobin ABG Sodium ABG Potassium ABG Chloride ABG Glucose Oxyhemoglobin Carboxyhemoglobin Sodium Potassium Chloride Carbon Dioxide BUN Creatinine Glucose 141 H POC Glucose Lactic Acid Calcium Phosphorus Magnesium Ferritin > 2000.0 H Direct Bilirubin AST ALT Alkaline Phosphatase Lactate Dehydrogenase 503 H Total Creatine Kinase C-Reactive Protein 24.70 H Total Protein Albumin Triglycerides Arterial Blood Glucose Arterial Blood Ionized Calcium Urine Creatinine Urine Chloride Vancomycin Trough Coronavirus (PCR) Crossmatch 06/17/20 06/17/20 06/17/20 16:54 19:39 23:43 WBC RBC Hgb Hct MCHC RDW Plt Count Lymph % (Auto) [place] % (Auto) Lymph # (Auto) [place] # (Auto) Eos # (Auto) Baso # (Auto) Seg Neutrophils % Seg Neuts % (Manual) Lymphocytes % (Manual) Monocytes % (Manual) Basophils % (Manual) Nucleated RBC % Seg Neutrophils # Seg Neutrophils # Man Lymphocytes # (Manual) Monocytes # (Manual) Eosinophils # (Manual) Basophils # (Manual) PT INR APTT D-Dimer Heparin Anti-Xa Level ABG pH 7.571 H POC ABG pCO2 24.3 L POC ABG pO2 41.6 L ABG pO2 ABG HCO3 ABG O2 Saturation ABG Base Excess ABG Hemoglobin ABG Oxyhemoglobin 84.0 L ABG Sodium 131.0 L ABG Potassium ABG Chloride ABG Glucose 163 H Oxyhemoglobin Carboxyhemoglobin Sodium Potassium Chloride Carbon Dioxide BUN Creatinine Glucose POC Glucose 185 H Lactic Acid 2.10 H* Calcium Phosphorus Magnesium Ferritin Direct Bilirubin AST ALT Alkaline Phosphatase Lactate Dehydrogenase Total Creatine Kinase C-Reactive Protein Total Protein Albumin Triglycerides Arterial Blood Glucose 163 H Arterial Blood Ionized Calcium 4.4 L Urine Creatinine Urine Chloride Vancomycin Trough Coronavirus (PCR) Crossmatch 06/18/20 06/18/20 06/18/20 00:17 00:23 03:55 WBC RBC Hgb Hct MCHC RDW Plt Count Lymph % (Auto) [place] % (Auto) Lymph # (Auto) [place] # (Auto) Eos # (Auto) Baso # (Auto) Seg Neutrophils % Seg Neuts % (Manual) Lymphocytes % (Manual) Monocytes % (Manual) Basophils % (Manual) Nucleated RBC % Seg Neutrophils # Seg Neutrophils # Man Lymphocytes # (Manual) Monocytes # (Manual) Eosinophils # (Manual) Basophils # (Manual) PT INR APTT D-Dimer Heparin Anti-Xa Level ABG pH POC ABG pCO2 POC ABG pO2 56.5 L 48.3 L ABG pO2 ABG HCO3 ABG O2 Saturation ABG Base Excess ABG Hemoglobin ABG Oxyhemoglobin 86.3 L 81.7 L ABG Sodium 132.9 L 131.0 L ABG Potassium ABG Chloride ABG Glucose 189 H 161 H Oxyhemoglobin Carboxyhemoglobin 0.4 L Sodium Potassium Chloride Carbon Dioxide BUN Creatinine Glucose POC Glucose Lactic Acid 3.80 H* Calcium Phosphorus Magnesium Ferritin Direct Bilirubin AST ALT Alkaline Phosphatase Lactate Dehydrogenase Total Creatine Kinase C-Reactive Protein Total Protein Albumin Triglycerides Arterial Blood Glucose 189 H 161 H Arterial Blood Ionized Calcium 4.3 L 4.2 L Urine Creatinine Urine Chloride Vancomycin Trough Coronavirus (PCR) Crossmatch 06/18/20 06/18/20 06/18/20 05:39 05:39 05:39 WBC 26.2 H RBC Hgb Hct MCHC RDW Plt Count Lymph % (Auto) [place] % (Auto) Lymph # (Auto) [place] # (Auto) Eos # (Auto) Baso # (Auto) Seg Neutrophils % Seg Neuts % (Manual) 90.0 H Lymphocytes % (Manual) 5.0 L Monocytes % (Manual) Basophils % (Manual) Nucleated RBC % Seg Neutrophils # Seg Neutrophils # Man 23.6 H Lymphocytes # (Manual) Monocytes # (Manual) 1.3 H Eosinophils # (Manual) Basophils # (Manual) PT INR APTT D-Dimer Heparin Anti-Xa Level ABG pH POC ABG pCO2 POC ABG pO2 ABG pO2 ABG HCO3 ABG O2 Saturation ABG Base Excess ABG Hemoglobin ABG Oxyhemoglobin ABG Sodium ABG Potassium ABG Chloride ABG Glucose Oxyhemoglobin Carboxyhemoglobin Sodium 135 L Potassium Chloride 97.5 L Carbon Dioxide 21 L BUN 39 H Creatinine 1.7 H D Glucose 168 H POC Glucose Lactic Acid 3.40 H* Calcium 7.2 L Phosphorus Magnesium Ferritin Direct Bilirubin AST ALT Alkaline Phosphatase Lactate Dehydrogenase Total Creatine Kinase C-Reactive Protein Total Protein Albumin Triglycerides Arterial Blood Glucose Arterial Blood Ionized Calcium Urine Creatinine Urine Chloride Vancomycin Trough Coronavirus (PCR) Crossmatch 06/18/20 06/18/20 06/18/20 07:24 09:00 10:10 WBC RBC Hgb Hct MCHC RDW Plt Count Lymph % (Auto) [place] % (Auto) Lymph # (Auto) [place] # (Auto) Eos # (Auto) Baso # (Auto) Seg Neutrophils % Seg Neuts % (Manual) Lymphocytes % (Manual) Monocytes % (Manual) Basophils % (Manual) Nucleated RBC % Seg Neutrophils # Seg Neutrophils # Man Lymphocytes # (Manual) Monocytes # (Manual) Eosinophils # (Manual) Basophils # (Manual) PT INR APTT D-Dimer Heparin Anti-Xa Level ABG pH POC ABG pCO2 POC ABG pO2 ABG pO2 ABG HCO3 ABG O2 Saturation ABG Base Excess ABG Hemoglobin ABG Oxyhemoglobin ABG Sodium ABG Potassium ABG Chloride ABG Glucose Oxyhemoglobin Carboxyhemoglobin Sodium Potassium Chloride Carbon Dioxide BUN Creatinine Glucose POC Glucose Lactic Acid 2.90 H* 3.20 H* Calcium Phosphorus Magnesium Ferritin Direct Bilirubin AST ALT Alkaline Phosphatase Lactate Dehydrogenase Total Creatine Kinase C-Reactive Protein Total Protein Albumin Triglycerides Arterial Blood Glucose Arterial Blood Ionized Calcium Urine Creatinine Urine Chloride Vancomycin Trough Coronavirus (PCR) Positive A Crossmatch 06/18/20 06/18/20 06/18/20 11:58 14:43 15:00 WBC RBC Hgb Hct MCHC RDW Plt Count Lymph % (Auto) [place] % (Auto) Lymph # (Auto) [place] # (Auto) Eos # (Auto) Baso # (Auto) Seg Neutrophils % Seg Neuts % (Manual) Lymphocytes % (Manual) Monocytes % (Manual) Basophils % (Manual) Nucleated RBC % Seg Neutrophils # Seg Neutrophils # Man Lymphocytes # (Manual) Monocytes # (Manual) Eosinophils # (Manual) Basophils # (Manual) PT INR APTT D-Dimer Heparin Anti-Xa Level ABG pH 7.303 L POC ABG pCO2 POC ABG pO2 82.3 L ABG pO2 ABG HCO3 ABG O2 Saturation ABG Base Excess ABG Hemoglobin ABG Oxyhemoglobin ABG Sodium 135.3 L ABG Potassium ABG Chloride ABG Glucose 215 H Oxyhemoglobin Carboxyhemoglobin 0.3 L Sodium Potassium Chloride Carbon Dioxide BUN Creatinine Glucose POC Glucose 209 H Lactic Acid Calcium Phosphorus Magnesium Ferritin Direct Bilirubin AST ALT Alkaline Phosphatase Lactate Dehydrogenase Total Creatine Kinase C-Reactive Protein Total Protein Albumin Triglycerides Arterial Blood Glucose 215 H Arterial Blood Ionized Calcium 4.2 L Urine Creatinine 192.4 H Urine Chloride 31.1 L Vancomycin Trough Coronavirus (PCR) Crossmatch 06/18/20 06/18/20 06/18/20 17:16 19:44 20:33 WBC RBC Hgb Hct MCHC RDW Plt Count Lymph % (Auto) [place] % (Auto) Lymph # (Auto) [place] # (Auto) Eos # (Auto) Baso # (Auto) Seg Neutrophils % Seg Neuts % (Manual) Lymphocytes % (Manual) Monocytes % (Manual) Basophils % (Manual) Nucleated RBC % Seg Neutrophils # Seg Neutrophils # Man Lymphocytes # (Manual) Monocytes # (Manual) Eosinophils # (Manual) Basophils # (Manual) PT INR APTT D-Dimer Heparin Anti-Xa Level ABG pH POC ABG pCO2 POC ABG pO2 ABG pO2 ABG HCO3 ABG O2 Saturation ABG Base Excess ABG Hemoglobin ABG Oxyhemoglobin ABG Sodium ABG Potassium ABG Chloride ABG Glucose Oxyhemoglobin Carboxyhemoglobin Sodium Potassium Chloride Carbon Dioxide BUN Creatinine Glucose POC Glucose 182 H Lactic Acid 3.00 H* Calcium Phosphorus Magnesium 2.70 H Ferritin Direct Bilirubin AST ALT Alkaline Phosphatase Lactate Dehydrogenase Total Creatine Kinase C-Reactive Protein Total Protein Albumin Triglycerides Arterial Blood Glucose Arterial Blood Ionized Calcium Urine Creatinine Urine Chloride Vancomycin Trough Coronavirus (PCR) Crossmatch 06/18/20 06/19/20 06/19/20 23:43 04:00 04:00 WBC 31.6 H RBC Hgb Hct MCHC RDW Plt Count Lymph % (Auto) [place] % (Auto) Lymph # (Auto) [place] # (Auto) Eos # (Auto) Baso # (Auto) Seg Neutrophils % Seg Neuts % (Manual) 98.0 H Lymphocytes % (Manual) 0.5 L Monocytes % (Manual) Basophils % (Manual) Nucleated RBC % Seg Neutrophils # Seg Neutrophils # Man 31.0 H Lymphocytes # (Manual) 0.2 L Monocytes # (Manual) Eosinophils # (Manual) Basophils # (Manual) PT INR APTT D-Dimer Heparin Anti-Xa Level ABG pH POC ABG pCO2 POC ABG pO2 ABG pO2 ABG HCO3 ABG O2 Saturation ABG Base Excess ABG Hemoglobin ABG Oxyhemoglobin ABG Sodium ABG Potassium ABG Chloride ABG Glucose Oxyhemoglobin Carboxyhemoglobin Sodium Potassium Chloride Carbon Dioxide BUN 56 H Creatinine 1.6 H Glucose 176 H POC Glucose 149 H Lactic Acid Calcium 7.0 L Phosphorus Magnesium Ferritin Direct Bilirubin AST 244 H ALT 159 H Alkaline Phosphatase Lactate Dehydrogenase Total Creatine Kinase C-Reactive Protein Total Protein 4.9 L D Albumin 2.5 L Triglycerides Arterial Blood Glucose Arterial Blood Ionized Calcium Urine Creatinine Urine Chloride Vancomycin Trough Coronavirus (PCR) Crossmatch 06/19/20 06/19/20 06/19/20 04:00 05:44 11:42 WBC RBC Hgb Hct MCHC RDW Plt Count Lymph % (Auto) [place] % (Auto) Lymph # (Auto) [place] # (Auto) Eos # (Auto) Baso # (Auto) Seg Neutrophils % Seg Neuts % (Manual) Lymphocytes % (Manual) Monocytes % (Manual) Basophils % (Manual) Nucleated RBC % Seg Neutrophils # Seg Neutrophils # Man Lymphocytes # (Manual) Monocytes # (Manual) Eosinophils # (Manual) Basophils # (Manual) PT INR APTT D-Dimer Heparin Anti-Xa Level ABG pH 7.265 L POC ABG pCO2 51.8 H POC ABG pO2 65.1 L ABG pO2 ABG HCO3 ABG O2 Saturation ABG Base Excess ABG Hemoglobin ABG Oxyhemoglobin ABG Sodium ABG Potassium ABG Chloride ABG Glucose 184 H Oxyhemoglobin Carboxyhemoglobin Sodium Potassium Chloride Carbon Dioxide BUN Creatinine Glucose POC Glucose 156 H 191 H Lactic Acid Calcium Phosphorus Magnesium Ferritin Direct Bilirubin AST ALT Alkaline Phosphatase Lactate Dehydrogenase Total Creatine Kinase C-Reactive Protein Total Protein Albumin Triglycerides Arterial Blood Glucose 184 H Arterial Blood Ionized Calcium 4.3 L Urine Creatinine Urine Chloride Vancomycin Trough Coronavirus (PCR) Crossmatch 06/19/20 06/19/20 06/19/20 12:30 17:16 18:36 WBC RBC Hgb Hct MCHC RDW Plt Count Lymph % (Auto) [place] % (Auto) Lymph # (Auto) [place] # (Auto) Eos # (Auto) Baso # (Auto) Seg Neutrophils % Seg Neuts % (Manual) Lymphocytes % (Manual) Monocytes % (Manual) Basophils % (Manual) Nucleated RBC % Seg Neutrophils # Seg Neutrophils # Man Lymphocytes # (Manual) Monocytes # (Manual) Eosinophils # (Manual) Basophils # (Manual) PT 16.4 H INR 1.32 H APTT D-Dimer Heparin Anti-Xa Level ABG pH 7.088 L POC ABG pCO2 78.1 H POC ABG pO2 208.3 H ABG pO2 ABG HCO3 ABG O2 Saturation ABG Base Excess ABG Hemoglobin ABG Oxyhemoglobin 98.3 H ABG Sodium ABG Potassium 5.0 H ABG Chloride ABG Glucose 182 H Oxyhemoglobin Carboxyhemoglobin 0.4 L Sodium Potassium Chloride Carbon Dioxide BUN Creatinine Glucose POC Glucose 154 H Lactic Acid Calcium Phosphorus Magnesium Ferritin Direct Bilirubin AST ALT Alkaline Phosphatase Lactate Dehydrogenase Total Creatine Kinase C-Reactive Protein Total Protein Albumin Triglycerides Arterial Blood Glucose 182 H Arterial Blood Ionized Calcium 4.3 L Urine Creatinine Urine Chloride Vancomycin Trough Coronavirus (PCR) Crossmatch 06/19/20 06/20/20 06/20/20 23:32 03:00 05:19 WBC RBC Hgb Hct MCHC RDW Plt Count Lymph % (Auto) [place] % (Auto) Lymph # (Auto) [place] # (Auto) Eos # (Auto) Baso # (Auto) Seg Neutrophils % Seg Neuts % (Manual) Lymphocytes % (Manual) Monocytes % (Manual) Basophils % (Manual) Nucleated RBC % Seg Neutrophils # Seg Neutrophils # Man Lymphocytes # (Manual) Monocytes # (Manual) Eosinophils # (Manual) Basophils # (Manual) PT INR APTT D-Dimer Heparin Anti-Xa Level 0.77 H ABG pH POC ABG pCO2 POC ABG pO2 ABG pO2 ABG HCO3 ABG O2 Saturation ABG Base Excess ABG Hemoglobin ABG Oxyhemoglobin ABG Sodium ABG Potassium ABG Chloride ABG Glucose Oxyhemoglobin Carboxyhemoglobin Sodium Potassium Chloride Carbon Dioxide BUN Creatinine Glucose POC Glucose 201 H 190 H Lactic Acid Calcium Phosphorus Magnesium Ferritin Direct Bilirubin AST ALT Alkaline Phosphatase Lactate Dehydrogenase Total Creatine Kinase C-Reactive Protein Total Protein Albumin Triglycerides Arterial Blood Glucose Arterial Blood Ionized Calcium Urine Creatinine Urine Chloride Vancomycin Trough Coronavirus (PCR) Crossmatch 06/20/20 06/20/20 06/20/20 08:25 08:25 11:36 WBC RBC Hgb Hct MCHC RDW Plt Count Lymph % (Auto) [place] % (Auto) Lymph # (Auto) [place] # (Auto) Eos # (Auto) Baso # (Auto) Seg Neutrophils % Seg Neuts % (Manual) Lymphocytes % (Manual) Monocytes % (Manual) Basophils % (Manual) Nucleated RBC % Seg Neutrophils # Seg Neutrophils # Man Lymphocytes # (Manual) Monocytes # (Manual) Eosinophils # (Manual) Basophils # (Manual) PT INR APTT D-Dimer Heparin Anti-Xa Level ABG pH POC ABG pCO2 POC ABG pO2 ABG pO2 ABG HCO3 ABG O2 Saturation ABG Base Excess ABG Hemoglobin ABG Oxyhemoglobin ABG Sodium ABG Potassium ABG Chloride ABG Glucose Oxyhemoglobin Carboxyhemoglobin Sodium 135 L Potassium 5.4 H Chloride 109.2 H Carbon Dioxide 19 L BUN 68 H Creatinine 2.5 H D Glucose 201 H POC Glucose 184 H Lactic Acid Calcium 5.5 L* D Phosphorus Magnesium Ferritin Direct Bilirubin AST 123 H ALT 86 H Alkaline Phosphatase Lactate Dehydrogenase Total Creatine Kinase C-Reactive Protein Total Protein 4.6 L Albumin 1.5 L Triglycerides Arterial Blood Glucose Arterial Blood Ionized Calcium Urine Creatinine Urine Chloride Vancomycin Trough 22.7 H Coronavirus (PCR) Crossmatch 06/20/20 06/20/20 06/20/20 11:40 17:28 20:00 WBC RBC Hgb Hct MCHC RDW Plt Count Lymph % (Auto) [place] % (Auto) Lymph # (Auto) [place] # (Auto) Eos # (Auto) Baso # (Auto) Seg Neutrophils % Seg Neuts % (Manual) Lymphocytes % (Manual) Monocytes % (Manual) Basophils % (Manual) Nucleated RBC % Seg Neutrophils # Seg Neutrophils # Man Lymphocytes # (Manual) Monocytes # (Manual) Eosinophils # (Manual) Basophils # (Manual) PT INR APTT D-Dimer Heparin Anti-Xa Level 0.89 H ABG pH 7.099 L POC ABG pCO2 61.1 H POC ABG pO2 ABG pO2 ABG HCO3 ABG O2 Saturation ABG Base Excess ABG Hemoglobin ABG Oxyhemoglobin ABG Sodium ABG Potassium 5.0 H ABG Chloride 111.0 H ABG Glucose 200 H Oxyhemoglobin Carboxyhemoglobin 0.4 L Sodium Potassium Chloride Carbon Dioxide BUN Creatinine Glucose POC Glucose 165 H Lactic Acid Calcium Phosphorus Magnesium Ferritin Direct Bilirubin AST ALT Alkaline Phosphatase Lactate Dehydrogenase Total Creatine Kinase C-Reactive Protein Total Protein Albumin Triglycerides Arterial Blood Glucose 200 H Arterial Blood Ionized Calcium 4.2 L Urine Creatinine Urine Chloride Vancomycin Trough Coronavirus (PCR) Crossmatch 06/20/20 06/21/20 06/21/20 23:29 05:00 05:20 WBC RBC Hgb Hct MCHC RDW Plt Count Lymph % (Auto) [place] % (Auto) Lymph # (Auto) [place] # (Auto) Eos # (Auto) Baso # (Auto) Seg Neutrophils % Seg Neuts % (Manual) Lymphocytes % (Manual) Monocytes % (Manual) Basophils % (Manual) Nucleated RBC % Seg Neutrophils # Seg Neutrophils # Man Lymphocytes # (Manual) Monocytes # (Manual) Eosinophils # (Manual) Basophils # (Manual) PT INR APTT D-Dimer Heparin Anti-Xa Level ABG pH POC ABG pCO2 POC ABG pO2 ABG pO2 ABG HCO3 ABG O2 Saturation ABG Base Excess ABG Hemoglobin ABG Oxyhemoglobin ABG Sodium ABG Potassium ABG Chloride ABG Glucose Oxyhemoglobin Carboxyhemoglobin Sodium Potassium Chloride 112.0 H Carbon Dioxide 20 L BUN 92 H Creatinine 3.9 H D Glucose 214 H POC Glucose 145 H 191 H Lactic Acid Calcium 6.5 L D Phosphorus Magnesium Ferritin Direct Bilirubin AST 98 H ALT 84 H Alkaline Phosphatase Lactate Dehydrogenase Total Creatine Kinase C-Reactive Protein Total Protein 4.6 L Albumin 2.1 L Triglycerides 180 H Arterial Blood Glucose Arterial Blood Ionized Calcium Urine Creatinine Urine Chloride Vancomycin Trough Coronavirus (PCR) Crossmatch 06/21/20 06/21/20 06/21/20 08:56 11:12 12:43 WBC RBC Hgb Hct MCHC RDW Plt Count Lymph % (Auto) [place] % (Auto) Lymph # (Auto) [place] # (Auto) Eos # (Auto) Baso # (Auto) Seg Neutrophils % Seg Neuts % (Manual) Lymphocytes % (Manual) Monocytes % (Manual) Basophils % (Manual) Nucleated RBC % Seg Neutrophils # Seg Neutrophils # Man Lymphocytes # (Manual) Monocytes # (Manual) Eosinophils # (Manual) Basophils # (Manual) PT INR APTT D-Dimer Heparin Anti-Xa Level 0.28 L ABG pH 7.184 L POC ABG pCO2 48.3 H POC ABG pO2 172.1 H ABG pO2 ABG HCO3 ABG O2 Saturation ABG Base Excess ABG Hemoglobin ABG Oxyhemoglobin 98.7 H ABG Sodium ABG Potassium 4.9 H ABG Chloride 112.0 H ABG Glucose 196 H Oxyhemoglobin Carboxyhemoglobin 0.2 L Sodium Potassium Chloride Carbon Dioxide BUN Creatinine Glucose POC Glucose 177 H Lactic Acid Calcium Phosphorus Magnesium Ferritin Direct Bilirubin AST ALT Alkaline Phosphatase Lactate Dehydrogenase Total Creatine Kinase C-Reactive Protein Total Protein Albumin Triglycerides Arterial Blood Glucose 196 H Arterial Blood Ionized Calcium 4.1 L Urine Creatinine Urine Chloride Vancomycin Trough Coronavirus (PCR) Crossmatch 06/21/20 06/21/20 06/22/20 16:31 Unknown 00:12 WBC RBC Hgb Hct MCHC RDW Plt Count Lymph % (Auto) [place] % (Auto) Lymph # (Auto) [place] # (Auto) Eos # (Auto) Baso # (Auto) Seg Neutrophils % Seg Neuts % (Manual) Lymphocytes % (Manual) Monocytes % (Manual) Basophils % (Manual) Nucleated RBC % Seg Neutrophils # Seg Neutrophils # Man Lymphocytes # (Manual) Monocytes # (Manual) Eosinophils # (Manual) Basophils # (Manual) PT INR APTT D-Dimer Heparin Anti-Xa Level 0.78 H ABG pH POC ABG pCO2 POC ABG pO2 ABG pO2 ABG HCO3 ABG O2 Saturation ABG Base Excess ABG Hemoglobin ABG Oxyhemoglobin ABG Sodium ABG Potassium ABG Chloride ABG Glucose Oxyhemoglobin Carboxyhemoglobin Sodium Potassium Chloride Carbon Dioxide BUN Creatinine Glucose POC Glucose 150 H 173 H Lactic Acid Calcium Phosphorus Magnesium Ferritin Direct Bilirubin AST ALT Alkaline Phosphatase Lactate Dehydrogenase Total Creatine Kinase C-Reactive Protein Total Protein Albumin Triglycerides Arterial Blood Glucose Arterial Blood Ionized Calcium Urine Creatinine Urine Chloride Vancomycin Trough Coronavirus (PCR) Crossmatch 06/22/20 06/22/20 06/22/20 04:00 05:04 05:30 WBC 33.9 H RBC Hgb 11.7 L Hct 35.2 L MCHC RDW 15.8 H Plt Count Lymph % (Auto) [place] % (Auto) Lymph # (Auto) [place] # (Auto) Eos # (Auto) Baso # (Auto) Seg Neutrophils % Seg Neuts % (Manual) 93.0 H Lymphocytes % (Manual) 5.0 L Monocytes % (Manual) Basophils % (Manual) Nucleated RBC % Seg Neutrophils # Seg Neutrophils # Man 31.5 H Lymphocytes # (Manual) Monocytes # (Manual) Eosinophils # (Manual) Basophils # (Manual) PT INR APTT D-Dimer Heparin Anti-Xa Level ABG pH 7.169 L POC ABG pCO2 POC ABG pO2 ABG pO2 ABG HCO3 ABG O2 Saturation ABG Base Excess ABG Hemoglobin ABG Oxyhemoglobin ABG Sodium ABG Potassium 5.1 H ABG Chloride 112.0 H ABG Glucose 186 H Oxyhemoglobin Carboxyhemoglobin 0.3 L Sodium Potassium Chloride Carbon Dioxide BUN Creatinine Glucose POC Glucose 161 H Lactic Acid Calcium Phosphorus Magnesium Ferritin Direct Bilirubin AST ALT Alkaline Phosphatase Lactate Dehydrogenase Total Creatine Kinase C-Reactive Protein Total Protein Albumin Triglycerides Arterial Blood Glucose 186 H Arterial Blood Ionized Calcium 4.1 L Urine Creatinine Urine Chloride Vancomycin Trough Coronavirus (PCR) Crossmatch 06/22/20 06/22/20 06/22/20 05:30 11:39 13:27 WBC RBC Hgb Hct MCHC RDW Plt Count Lymph % (Auto) [place] % (Auto) Lymph # (Auto) [place] # (Auto) Eos # (Auto) Baso # (Auto) Seg Neutrophils % Seg Neuts % (Manual) Lymphocytes % (Manual) Monocytes % (Manual) Basophils % (Manual) Nucleated RBC % Seg Neutrophils # Seg Neutrophils # Man Lymphocytes # (Manual) Monocytes # (Manual) Eosinophils # (Manual) Basophils # (Manual) PT INR APTT D-Dimer Heparin Anti-Xa Level ABG pH POC ABG pCO2 POC ABG pO2 ABG pO2 ABG HCO3 ABG O2 Saturation ABG Base Excess ABG Hemoglobin ABG Oxyhemoglobin ABG Sodium ABG Potassium ABG Chloride ABG Glucose Oxyhemoglobin Carboxyhemoglobin Sodium Potassium 5.7 H Chloride 111.3 H Carbon Dioxide 18 L BUN 112 H Creatinine 5.0 H Glucose 173 H POC Glucose 172 H 176 H Lactic Acid Calcium 6.7 L Phosphorus Magnesium Ferritin Direct Bilirubin AST ALT Alkaline Phosphatase Lactate Dehydrogenase Total Creatine Kinase C-Reactive Protein Total Protein Albumin Triglycerides Arterial Blood Glucose Arterial Blood Ionized Calcium Urine Creatinine Urine Chloride Vancomycin Trough Coronavirus (PCR) Crossmatch 06/22/20 06/22/20 06/22/20 14:37 17:00 17:40 WBC RBC Hgb Hct MCHC RDW Plt Count Lymph % (Auto) [place] % (Auto) Lymph # (Auto) [place] # (Auto) Eos # (Auto) Baso # (Auto) Seg Neutrophils % Seg Neuts % (Manual) Lymphocytes % (Manual) Monocytes % (Manual) Basophils % (Manual) Nucleated RBC % Seg Neutrophils # Seg Neutrophils # Man Lymphocytes # (Manual) Monocytes # (Manual) Eosinophils # (Manual) Basophils # (Manual) PT INR APTT D-Dimer Heparin Anti-Xa Level 1.32 H ABG pH POC ABG pCO2 POC ABG pO2 ABG pO2 ABG HCO3 ABG O2 Saturation ABG Base Excess ABG Hemoglobin ABG Oxyhemoglobin ABG Sodium ABG Potassium ABG Chloride ABG Glucose Oxyhemoglobin Carboxyhemoglobin Sodium Potassium Chloride Carbon Dioxide BUN Creatinine Glucose POC Glucose 171 H Lactic Acid Calcium Phosphorus Magnesium Ferritin Direct Bilirubin AST ALT Alkaline Phosphatase Lactate Dehydrogenase Total Creatine Kinase C-Reactive Protein 5.30 H Total Protein Albumin Triglycerides Arterial Blood Glucose Arterial Blood Ionized Calcium Urine Creatinine Urine Chloride Vancomycin Trough Coronavirus (PCR) Crossmatch 06/22/20 06/23/20 06/23/20 23:36 02:13 02:41 WBC RBC Hgb Hct MCHC RDW Plt Count Lymph % (Auto) [place] % (Auto) Lymph # (Auto) [place] # (Auto) Eos # (Auto) Baso # (Auto) Seg Neutrophils % Seg Neuts % (Manual) Lymphocytes % (Manual) Monocytes % (Manual) Basophils % (Manual) Nucleated RBC % Seg Neutrophils # Seg Neutrophils # Man Lymphocytes # (Manual) Monocytes # (Manual) Eosinophils # (Manual) Basophils # (Manual) PT INR APTT D-Dimer Heparin Anti-Xa Level 0.21 L ABG pH 7.318 L POC ABG pCO2 POC ABG pO2 157.5 H ABG pO2 ABG HCO3 ABG O2 Saturation ABG Base Excess ABG Hemoglobin ABG Oxyhemoglobin ABG Sodium 135.6 L ABG Potassium 4.6 H ABG Chloride 110.0 H ABG Glucose 169 H Oxyhemoglobin Carboxyhemoglobin Sodium Potassium Chloride Carbon Dioxide BUN Creatinine Glucose POC Glucose 155 H Lactic Acid Calcium Phosphorus Magnesium Ferritin Direct Bilirubin AST ALT Alkaline Phosphatase Lactate Dehydrogenase Total Creatine Kinase C-Reactive Protein Total Protein Albumin Triglycerides Arterial Blood Glucose 169 H Arterial Blood Ionized Calcium Urine Creatinine Urine Chloride Vancomycin Trough Coronavirus (PCR) Crossmatch 06/23/20 06/23/20 06/23/20 04:00 04:00 05:24 WBC 27.4 H RBC Hgb 11.3 L Hct 33.8 L MCHC RDW Plt Count Lymph % (Auto) [place] % (Auto) Lymph # (Auto) [place] # (Auto) Eos # (Auto) Baso # (Auto) Seg Neutrophils % Seg Neuts % (Manual) 93.0 H Lymphocytes % (Manual) 1.0 L Monocytes % (Manual) Basophils % (Manual) Nucleated RBC % 1.0 H Seg Neutrophils # Seg Neutrophils # Man 25.5 H Lymphocytes # (Manual) 0.3 L Monocytes # (Manual) 1.1 H Eosinophils # (Manual) Basophils # (Manual) PT INR APTT D-Dimer Heparin Anti-Xa Level ABG pH POC ABG pCO2 POC ABG pO2 ABG pO2 ABG HCO3 ABG O2 Saturation ABG Base Excess ABG Hemoglobin ABG Oxyhemoglobin ABG Sodium ABG Potassium ABG Chloride ABG Glucose Oxyhemoglobin Carboxyhemoglobin Sodium Potassium Chloride 107.6 H Carbon Dioxide 20 L BUN 100 H Creatinine 4.7 H Glucose 168 H POC Glucose 151 H Lactic Acid Calcium Phosphorus Magnesium Ferritin Direct Bilirubin AST ALT Alkaline Phosphatase Lactate Dehydrogenase Total Creatine Kinase C-Reactive Protein Total Protein Albumin Triglycerides Arterial Blood Glucose Arterial Blood Ionized Calcium Urine Creatinine Urine Chloride Vancomycin Trough Coronavirus (PCR) Crossmatch 06/23/20 06/23/20 06/23/20 11:30 17:18 23:50 WBC RBC Hgb Hct MCHC RDW Plt Count Lymph % (Auto) [place] % (Auto) Lymph # (Auto) [place] # (Auto) Eos # (Auto) Baso # (Auto) Seg Neutrophils % Seg Neuts % (Manual) Lymphocytes % (Manual) Monocytes % (Manual) Basophils % (Manual) Nucleated RBC % Seg Neutrophils # Seg Neutrophils # Man Lymphocytes # (Manual) Monocytes # (Manual) Eosinophils # (Manual) Basophils # (Manual) PT INR APTT D-Dimer Heparin Anti-Xa Level ABG pH POC ABG pCO2 POC ABG pO2 ABG pO2 ABG HCO3 ABG O2 Saturation ABG Base Excess ABG Hemoglobin ABG Oxyhemoglobin ABG Sodium ABG Potassium ABG Chloride ABG Glucose Oxyhemoglobin Carboxyhemoglobin Sodium Potassium Chloride Carbon Dioxide BUN Creatinine Glucose POC Glucose 157 H 156 H 162 H Lactic Acid Calcium Phosphorus Magnesium Ferritin Direct Bilirubin AST ALT Alkaline Phosphatase Lactate Dehydrogenase Total Creatine Kinase C-Reactive Protein Total Protein Albumin Triglycerides Arterial Blood Glucose Arterial Blood Ionized Calcium Urine Creatinine Urine Chloride Vancomycin Trough Coronavirus (PCR) Crossmatch 06/24/20 06/24/20 06/24/20 04:41 05:57 06:30 WBC 34.3 H RBC Hgb 10.9 L Hct 32.6 L MCHC RDW Plt Count Lymph % (Auto) 2.0 L [place] % (Auto) Lymph # (Auto) 0.7 L [place] # (Auto) 1.2 H Eos # (Auto) Baso # (Auto) Seg Neutrophils % Seg Neuts % (Manual) 96.0 H Lymphocytes % (Manual) 3.0 L Monocytes % (Manual) Basophils % (Manual) Nucleated RBC % Seg Neutrophils # 32.3 H Seg Neutrophils # Man 32.9 H Lymphocytes # (Manual) 1.0 L Monocytes # (Manual) Eosinophils # (Manual) Basophils # (Manual) PT INR APTT D-Dimer Heparin Anti-Xa Level ABG pH POC ABG pCO2 POC ABG pO2 71.1 L ABG pO2 ABG HCO3 ABG O2 Saturation ABG Base Excess ABG Hemoglobin ABG Oxyhemoglobin 92.4 L ABG Sodium 115.6 L ABG Potassium ABG Chloride ABG Glucose 159 H Oxyhemoglobin Carboxyhemoglobin Sodium Potassium Chloride Carbon Dioxide BUN Creatinine Glucose POC Glucose 143 H Lactic Acid Calcium Phosphorus Magnesium Ferritin Direct Bilirubin AST ALT Alkaline Phosphatase Lactate Dehydrogenase Total Creatine Kinase C-Reactive Protein Total Protein Albumin Triglycerides Arterial Blood Glucose 159 H Arterial Blood Ionized Calcium 4.2 L Urine Creatinine Urine Chloride Vancomycin Trough Coronavirus (PCR) Crossmatch 06/24/20 06/24/20 06/24/20 07:03 09:37 11:56 WBC RBC Hgb Hct MCHC RDW Plt Count Lymph % (Auto) [place] % (Auto) Lymph # (Auto) [place] # (Auto) Eos # (Auto) Baso # (Auto) Seg Neutrophils % Seg Neuts % (Manual) Lymphocytes % (Manual) Monocytes % (Manual) Basophils % (Manual) Nucleated RBC % Seg Neutrophils # Seg Neutrophils # Man Lymphocytes # (Manual) Monocytes # (Manual) Eosinophils # (Manual) Basophils # (Manual) PT INR APTT D-Dimer Heparin Anti-Xa Level 0.26 L ABG pH POC ABG pCO2 POC ABG pO2 ABG pO2 ABG HCO3 ABG O2 Saturation ABG Base Excess ABG Hemoglobin ABG Oxyhemoglobin ABG Sodium ABG Potassium ABG Chloride ABG Glucose Oxyhemoglobin Carboxyhemoglobin Sodium Potassium 5.1 H Chloride Carbon Dioxide BUN 103 H Creatinine 5.0 H Glucose 163 H POC Glucose 149 H Lactic Acid Calcium 7.6 L Phosphorus Magnesium Ferritin Direct Bilirubin AST ALT Alkaline Phosphatase Lactate Dehydrogenase Total Creatine Kinase C-Reactive Protein Total Protein Albumin Triglycerides Arterial Blood Glucose Arterial Blood Ionized Calcium Urine Creatinine Urine Chloride Vancomycin Trough Coronavirus (PCR) Crossmatch 06/24/20 06/25/20 06/25/20 18:09 01:05 03:00 WBC RBC Hgb 10.6 L Hct 32.1 L MCHC RDW Plt Count Lymph % (Auto) [place] % (Auto) Lymph # (Auto) [place] # (Auto) Eos # (Auto) Baso # (Auto) Seg Neutrophils % Seg Neuts % (Manual) Lymphocytes % (Manual) Monocytes % (Manual) Basophils % (Manual) Nucleated RBC % Seg Neutrophils # Seg Neutrophils # Man Lymphocytes # (Manual) Monocytes # (Manual) Eosinophils # (Manual) Basophils # (Manual) PT INR APTT D-Dimer Heparin Anti-Xa Level ABG pH POC ABG pCO2 POC ABG pO2 ABG pO2 ABG HCO3 ABG O2 Saturation ABG Base Excess ABG Hemoglobin ABG Oxyhemoglobin ABG Sodium ABG Potassium ABG Chloride ABG Glucose Oxyhemoglobin Carboxyhemoglobin Sodium Potassium Chloride Carbon Dioxide BUN Creatinine Glucose POC Glucose 141 H 137 H Lactic Acid Calcium Phosphorus Magnesium Ferritin Direct Bilirubin AST ALT Alkaline Phosphatase Lactate Dehydrogenase Total Creatine Kinase C-Reactive Protein Total Protein Albumin Triglycerides Arterial Blood Glucose Arterial Blood Ionized Calcium Urine Creatinine Urine Chloride Vancomycin Trough Coronavirus (PCR) Crossmatch 06/25/20 06/25/20 06/25/20 03:48 05:17 12:08 WBC RBC Hgb Hct MCHC RDW Plt Count Lymph % (Auto) [place] % (Auto) Lymph # (Auto) [place] # (Auto) Eos # (Auto) Baso # (Auto) Seg Neutrophils % Seg Neuts % (Manual) Lymphocytes % (Manual) Monocytes % (Manual) Basophils % (Manual) Nucleated RBC % Seg Neutrophils # Seg Neutrophils # Man Lymphocytes # (Manual) Monocytes # (Manual) Eosinophils # (Manual) Basophils # (Manual) PT INR APTT D-Dimer Heparin Anti-Xa Level ABG pH POC ABG pCO2 29.4 L POC ABG pO2 67.1 L ABG pO2 ABG HCO3 ABG O2 Saturation ABG Base Excess ABG Hemoglobin 11.5 L ABG Oxyhemoglobin ABG Sodium 124.1 L ABG Potassium 4.6 H ABG Chloride ABG Glucose 159 H Oxyhemoglobin Carboxyhemoglobin Sodium Potassium Chloride Carbon Dioxide BUN Creatinine Glucose POC Glucose 149 H 150 H Lactic Acid Calcium Phosphorus Magnesium Ferritin Direct Bilirubin AST ALT Alkaline Phosphatase Lactate Dehydrogenase Total Creatine Kinase C-Reactive Protein Total Protein Albumin Triglycerides Arterial Blood Glucose 159 H Arterial Blood Ionized Calcium 4.2 L Urine Creatinine Urine Chloride Vancomycin Trough Coronavirus (PCR) Crossmatch 06/25/20 06/25/20 06/25/20 16:27 16:35 17:27 WBC RBC Hgb Hct MCHC RDW Plt Count Lymph % (Auto) [place] % (Auto) Lymph # (Auto) [place] # (Auto) Eos # (Auto) Baso # (Auto) Seg Neutrophils % Seg Neuts % (Manual) Lymphocytes % (Manual) Monocytes % (Manual) Basophils % (Manual) Nucleated RBC % Seg Neutrophils # Seg Neutrophils # Man Lymphocytes # (Manual) Monocytes # (Manual) Eosinophils # (Manual) Basophils # (Manual) PT INR APTT D-Dimer Heparin Anti-Xa Level < 0.10 L ABG pH POC ABG pCO2 POC ABG pO2 ABG pO2 ABG HCO3 ABG O2 Saturation ABG Base Excess ABG Hemoglobin ABG Oxyhemoglobin ABG Sodium ABG Potassium ABG Chloride ABG Glucose Oxyhemoglobin Carboxyhemoglobin Sodium Potassium Chloride Carbon Dioxide BUN Creatinine Glucose POC Glucose 143 H 156 H Lactic Acid Calcium Phosphorus Magnesium Ferritin Direct Bilirubin AST ALT Alkaline Phosphatase Lactate Dehydrogenase Total Creatine Kinase C-Reactive Protein Total Protein Albumin Triglycerides Arterial Blood Glucose Arterial Blood Ionized Calcium Urine Creatinine Urine Chloride Vancomycin Trough Coronavirus (PCR) Crossmatch 06/25/20 06/25/20 06/25/20 20:00 20:55 23:10 WBC 32.7 H RBC 3.06 L Hgb 9.0 L 9.5 L Hct 26.7 L 28.6 L MCHC RDW Plt Count Lymph % (Auto) [place] % (Auto) Lymph # (Auto) [place] # (Auto) Eos # (Auto) Baso # (Auto) Seg Neutrophils % Seg Neuts % (Manual) Lymphocytes % (Manual) 2.0 L Monocytes % (Manual) Basophils % (Manual) Nucleated RBC % Seg Neutrophils # Seg Neutrophils # Man 30.7 H Lymphocytes # (Manual) 0.7 L Monocytes # (Manual) 1.3 H Eosinophils # (Manual) Basophils # (Manual) PT 17.7 H INR 1.47 H APTT 65.8 H* D-Dimer Heparin Anti-Xa Level ABG pH POC ABG pCO2 POC ABG pO2 ABG pO2 ABG HCO3 ABG O2 Saturation ABG Base Excess ABG Hemoglobin ABG Oxyhemoglobin ABG Sodium ABG Potassium ABG Chloride ABG Glucose Oxyhemoglobin Carboxyhemoglobin Sodium Potassium Chloride Carbon Dioxide BUN Creatinine Glucose POC Glucose Lactic Acid Calcium Phosphorus Magnesium Ferritin Direct Bilirubin AST ALT Alkaline Phosphatase Lactate Dehydrogenase Total Creatine Kinase C-Reactive Protein Total Protein Albumin Triglycerides Arterial Blood Glucose Arterial Blood Ionized Calcium Urine Creatinine Urine Chloride Vancomycin Trough Coronavirus (PCR) Crossmatch 06/25/20 06/26/20 06/26/20 23:14 01:30 03:25 WBC RBC Hgb Hct MCHC RDW Plt Count Lymph % (Auto) [place] % (Auto) Lymph # (Auto) [place] # (Auto) Eos # (Auto) Baso # (Auto) Seg Neutrophils % Seg Neuts % (Manual) Lymphocytes % (Manual) Monocytes % (Manual) Basophils % (Manual) Nucleated RBC % Seg Neutrophils # Seg Neutrophils # Man Lymphocytes # (Manual) Monocytes # (Manual) Eosinophils # (Manual) Basophils # (Manual) PT INR APTT D-Dimer Heparin Anti-Xa Level < 0.10 L ABG pH POC ABG pCO2 POC ABG pO2 ABG pO2 ABG HCO3 ABG O2 Saturation ABG Base Excess ABG Hemoglobin 11.8 L ABG Oxyhemoglobin ABG Sodium 127.1 L ABG Potassium 5.4 H ABG Chloride ABG Glucose 155 H Oxyhemoglobin Carboxyhemoglobin 0.3 L Sodium Potassium Chloride Carbon Dioxide BUN Creatinine Glucose POC Glucose 148 H Lactic Acid Calcium Phosphorus Magnesium Ferritin Direct Bilirubin AST ALT Alkaline Phosphatase Lactate Dehydrogenase Total Creatine Kinase C-Reactive Protein Total Protein Albumin Triglycerides Arterial Blood Glucose 155 H Arterial Blood Ionized Calcium 4.2 L Urine Creatinine Urine Chloride Vancomycin Trough Coronavirus (PCR) Crossmatch 06/26/20 06/26/20 06/26/20 03:59 05:14 05:47 WBC 36.5 H RBC 3.26 L Hgb 9.7 L Hct 28.2 L MCHC RDW Plt Count Lymph % (Auto) [place] % (Auto) Lymph # (Auto) [place] # (Auto) Eos # (Auto) Baso # (Auto) Seg Neutrophils % Seg Neuts % (Manual) 92.0 H Lymphocytes % (Manual) 4.0 L Monocytes % (Manual) Basophils % (Manual) Nucleated RBC % Seg Neutrophils # Seg Neutrophils # Man 33.6 H Lymphocytes # (Manual) Monocytes # (Manual) Eosinophils # (Manual) Basophils # (Manual) PT INR APTT D-Dimer Heparin Anti-Xa Level ABG pH POC ABG pCO2 POC ABG pO2 ABG pO2 ABG HCO3 ABG O2 Saturation ABG Base Excess ABG Hemoglobin ABG Oxyhemoglobin ABG Sodium ABG Potassium ABG Chloride ABG Glucose Oxyhemoglobin Carboxyhemoglobin Sodium Potassium 5.9 H Chloride Carbon Dioxide 20 L BUN 144 H Creatinine 6.4 H Glucose 149 H POC Glucose 128 H Lactic Acid Calcium 7.6 L Phosphorus Magnesium Ferritin Direct Bilirubin AST ALT Alkaline Phosphatase Lactate Dehydrogenase Total Creatine Kinase C-Reactive Protein Total Protein Albumin Triglycerides Arterial Blood Glucose Arterial Blood Ionized Calcium Urine Creatinine Urine Chloride Vancomycin Trough Coronavirus (PCR) Crossmatch 06/26/20 06/26/20 06/26/20 05:47 12:47 17:42 WBC RBC Hgb Hct MCHC RDW Plt Count Lymph % (Auto) [place] % (Auto) Lymph # (Auto) [place] # (Auto) Eos # (Auto) Baso # (Auto) Seg Neutrophils % Seg Neuts % (Manual) Lymphocytes % (Manual) Monocytes % (Manual) Basophils % (Manual) Nucleated RBC % Seg Neutrophils # Seg Neutrophils # Man Lymphocytes # (Manual) Monocytes # (Manual) Eosinophils # (Manual) Basophils # (Manual) PT 17.4 H INR 1.44 H APTT D-Dimer Heparin Anti-Xa Level ABG pH POC ABG pCO2 POC ABG pO2 ABG pO2 ABG HCO3 ABG O2 Saturation ABG Base Excess ABG Hemoglobin ABG Oxyhemoglobin ABG Sodium ABG Potassium ABG Chloride ABG Glucose Oxyhemoglobin Carboxyhemoglobin Sodium Potassium Chloride Carbon Dioxide BUN Creatinine Glucose POC Glucose 124 H 127 H Lactic Acid Calcium Phosphorus Magnesium Ferritin Direct Bilirubin AST ALT Alkaline Phosphatase Lactate Dehydrogenase Total Creatine Kinase C-Reactive Protein Total Protein Albumin Triglycerides Arterial Blood Glucose Arterial Blood Ionized Calcium Urine Creatinine Urine Chloride Vancomycin Trough Coronavirus (PCR) Crossmatch 06/26/20 06/27/20 06/27/20 23:30 03:32 04:00 WBC RBC Hgb 8.7 L Hct 26.4 L MCHC RDW Plt Count Lymph % (Auto) [place] % (Auto) Lymph # (Auto) [place] # (Auto) Eos # (Auto) Baso # (Auto) Seg Neutrophils % Seg Neuts % (Manual) Lymphocytes % (Manual) Monocytes % (Manual) Basophils % (Manual) Nucleated RBC % Seg Neutrophils # Seg Neutrophils # Man Lymphocytes # (Manual) Monocytes # (Manual) Eosinophils # (Manual) Basophils # (Manual) PT INR APTT D-Dimer Heparin Anti-Xa Level ABG pH 7.298 L POC ABG pCO2 POC ABG pO2 ABG pO2 ABG HCO3 ABG O2 Saturation ABG Base Excess ABG Hemoglobin 9.6 L ABG Oxyhemoglobin ABG Sodium 124.4 L ABG Potassium 6.6 H ABG Chloride ABG Glucose 136 H Oxyhemoglobin Carboxyhemoglobin Sodium Potassium Chloride Carbon Dioxide BUN Creatinine Glucose POC Glucose 123 H Lactic Acid Calcium Phosphorus Magnesium Ferritin Direct Bilirubin AST ALT Alkaline Phosphatase Lactate Dehydrogenase Total Creatine Kinase C-Reactive Protein Total Protein Albumin Triglycerides Arterial Blood Glucose 136 H Arterial Blood Ionized Calcium 4.1 L Urine Creatinine Urine Chloride Vancomycin Trough Coronavirus (PCR) Crossmatch 06/27/20 06/27/20 06/27/20 05:26 10:14 11:58 WBC RBC Hgb Hct MCHC RDW Plt Count Lymph % (Auto) [place] % (Auto) Lymph # (Auto) [place] # (Auto) Eos # (Auto) Baso # (Auto) Seg Neutrophils % Seg Neuts % (Manual) Lymphocytes % (Manual) Monocytes % (Manual) Basophils % (Manual) Nucleated RBC % Seg Neutrophils # Seg Neutrophils # Man Lymphocytes # (Manual) Monocytes # (Manual) Eosinophils # (Manual) Basophils # (Manual) PT INR APTT D-Dimer Heparin Anti-Xa Level ABG pH POC ABG pCO2 POC ABG pO2 ABG pO2 ABG HCO3 ABG O2 Saturation ABG Base Excess ABG Hemoglobin ABG Oxyhemoglobin ABG Sodium ABG Potassium ABG Chloride ABG Glucose Oxyhemoglobin Carboxyhemoglobin Sodium 136 L Potassium 7.0 H* Chloride 97.8 L Carbon Dioxide BUN 172 H Creatinine 7.4 H Glucose 129 H POC Glucose 124 H 115 H Lactic Acid Calcium 7.6 L Phosphorus Magnesium Ferritin Direct Bilirubin AST ALT Alkaline Phosphatase Lactate Dehydrogenase Total Creatine Kinase C-Reactive Protein Total Protein Albumin Triglycerides Arterial Blood Glucose Arterial Blood Ionized Calcium Urine Creatinine Urine Chloride Vancomycin Trough Coronavirus (PCR) Crossmatch 06/27/20 06/27/20 06/27/20 17:32 18:30 23:24 WBC RBC Hgb Hct MCHC RDW Plt Count Lymph % (Auto) [place] % (Auto) Lymph # (Auto) [place] # (Auto) Eos # (Auto) Baso # (Auto) Seg Neutrophils % Seg Neuts % (Manual) Lymphocytes % (Manual) Monocytes % (Manual) Basophils % (Manual) Nucleated RBC % Seg Neutrophils # Seg Neutrophils # Man Lymphocytes # (Manual) Monocytes # (Manual) Eosinophils # (Manual) Basophils # (Manual) PT INR APTT D-Dimer Heparin Anti-Xa Level ABG pH POC ABG pCO2 POC ABG pO2 ABG pO2 ABG HCO3 ABG O2 Saturation ABG Base Excess ABG Hemoglobin ABG Oxyhemoglobin ABG Sodium ABG Potassium ABG Chloride ABG Glucose Oxyhemoglobin Carboxyhemoglobin Sodium Potassium 7.3 H* Chloride Carbon Dioxide BUN Creatinine Glucose POC Glucose 122 H 116 H Lactic Acid Calcium Phosphorus Magnesium Ferritin Direct Bilirubin AST ALT Alkaline Phosphatase Lactate Dehydrogenase Total Creatine Kinase C-Reactive Protein Total Protein Albumin Triglycerides Arterial Blood Glucose Arterial Blood Ionized Calcium Urine Creatinine Urine Chloride Vancomycin Trough Coronavirus (PCR) Crossmatch 06/28/20 06/28/20 06/28/20 00:00 02:16 05:37 WBC RBC Hgb Hct MCHC RDW Plt Count Lymph % (Auto) [place] % (Auto) Lymph # (Auto) [place] # (Auto) Eos # (Auto) Baso # (Auto) Seg Neutrophils % Seg Neuts % (Manual) Lymphocytes % (Manual) Monocytes % (Manual) Basophils % (Manual) Nucleated RBC % Seg Neutrophils # Seg Neutrophils # Man Lymphocytes # (Manual) Monocytes # (Manual) Eosinophils # (Manual) Basophils # (Manual) PT INR APTT D-Dimer Heparin Anti-Xa Level ABG pH POC ABG pCO2 POC ABG pO2 79.0 L ABG pO2 ABG HCO3 ABG O2 Saturation ABG Base Excess ABG Hemoglobin 11.7 L ABG Oxyhemoglobin ABG Sodium 128.1 L ABG Potassium 6.6 H ABG Chloride ABG Glucose 124 H Oxyhemoglobin Carboxyhemoglobin Sodium Potassium 7.3 H* Chloride Carbon Dioxide BUN Creatinine Glucose POC Glucose 115 H Lactic Acid Calcium Phosphorus Magnesium Ferritin Direct Bilirubin AST ALT Alkaline Phosphatase Lactate Dehydrogenase Total Creatine Kinase C-Reactive Protein Total Protein Albumin Triglycerides Arterial Blood Glucose 124 H Arterial Blood Ionized Calcium 4.2 L Urine Creatinine Urine Chloride Vancomycin Trough Coronavirus (PCR) Crossmatch 06/28/20 06/28/20 06/28/20 10:03 10:03 11:51 WBC 33.6 H RBC 3.03 L Hgb 8.9 L Hct 27.0 L MCHC RDW Plt Count Lymph % (Auto) [place] % (Auto) Lymph # (Auto) [place] # (Auto) Eos # (Auto) Baso # (Auto) Seg Neutrophils % Seg Neuts % (Manual) Lymphocytes % (Manual) Monocytes % (Manual) Basophils % (Manual) Nucleated RBC % Seg Neutrophils # Seg Neutrophils # Man Lymphocytes # (Manual) Monocytes # (Manual) Eosinophils # (Manual) Basophils # (Manual) PT INR APTT D-Dimer Heparin Anti-Xa Level ABG pH POC ABG pCO2 POC ABG pO2 ABG pO2 ABG HCO3 ABG O2 Saturation ABG Base Excess ABG Hemoglobin ABG Oxyhemoglobin ABG Sodium ABG Potassium ABG Chloride ABG Glucose Oxyhemoglobin Carboxyhemoglobin Sodium 136 L Potassium 6.5 H* Chloride Carbon Dioxide 20 L BUN 129 H Creatinine 5.8 H Glucose 113 H POC Glucose 107 H Lactic Acid Calcium 7.6 L Phosphorus Magnesium Ferritin Direct Bilirubin AST ALT Alkaline Phosphatase Lactate Dehydrogenase Total Creatine Kinase C-Reactive Protein Total Protein Albumin Triglycerides Arterial Blood Glucose Arterial Blood Ionized Calcium Urine Creatinine Urine Chloride Vancomycin Trough Coronavirus (PCR) Crossmatch 06/28/20 06/28/20 06/29/20 17:45 Unknown 03:15 WBC RBC Hgb Hct MCHC RDW Plt Count Lymph % (Auto) [place] % (Auto) Lymph # (Auto) [place] # (Auto) Eos # (Auto) Baso # (Auto) Seg Neutrophils % Seg Neuts % (Manual) Lymphocytes % (Manual) Monocytes % (Manual) Basophils % (Manual) Nucleated RBC % Seg Neutrophils # Seg Neutrophils # Man Lymphocytes # (Manual) Monocytes # (Manual) Eosinophils # (Manual) Basophils # (Manual) PT INR APTT D-Dimer Heparin Anti-Xa Level ABG pH POC ABG pCO2 POC ABG pO2 ABG pO2 ABG HCO3 ABG O2 Saturation ABG Base Excess ABG Hemoglobin 7.8 L ABG Oxyhemoglobin ABG Sodium 127.4 L ABG Potassium 5.5 H ABG Chloride 97.0 L ABG Glucose 96 H Oxyhemoglobin Carboxyhemoglobin Sodium Potassium 5.4 H Chloride Carbon Dioxide BUN Creatinine Glucose POC Glucose 117 H Lactic Acid Calcium Phosphorus Magnesium Ferritin Direct Bilirubin AST ALT Alkaline Phosphatase Lactate Dehydrogenase Total Creatine Kinase C-Reactive Protein Total Protein Albumin Triglycerides Arterial Blood Glucose 96 H Arterial Blood Ionized Calcium 4.0 L Urine Creatinine Urine Chloride Vancomycin Trough Coronavirus (PCR) Crossmatch 06/29/20 06/29/20 06/29/20 03:45 Unknown Unknown WBC RBC Hgb Hct MCHC RDW Plt Count Lymph % (Auto) [place] % (Auto) Lymph # (Auto) [place] # (Auto) Eos # (Auto) Baso # (Auto) Seg Neutrophils % Seg Neuts % (Manual) Lymphocytes % (Manual) Monocytes % (Manual) Basophils % (Manual) Nucleated RBC % Seg Neutrophils # Seg Neutrophils # Man Lymphocytes # (Manual) Monocytes # (Manual) Eosinophils # (Manual) Basophils # (Manual) PT INR APTT D-Dimer Heparin Anti-Xa Level ABG pH POC ABG pCO2 POC ABG pO2 ABG pO2 ABG HCO3 ABG O2 Saturation ABG Base Excess ABG Hemoglobin ABG Oxyhemoglobin ABG Sodium ABG Potassium ABG Chloride ABG Glucose Oxyhemoglobin Carboxyhemoglobin Sodium 135 L Potassium 6.0 H 6.1 H* Chloride 94.8 L Carbon Dioxide BUN 109 H 114 H Creatinine 5.5 H Glucose POC Glucose Lactic Acid Calcium 7.4 L Phosphorus Magnesium Ferritin Direct Bilirubin AST 47 H ALT Alkaline Phosphatase Lactate Dehydrogenase Total Creatine Kinase C-Reactive Protein Total Protein 4.9 L Albumin 2.2 L Triglycerides Arterial Blood Glucose Arterial Blood Ionized Calcium Urine Creatinine Urine Chloride Vancomycin Trough Coronavirus (PCR) Crossmatch 06/29/20 06/29/20 06/30/20 Unknown Unknown 03:32 WBC 20.7 H RBC 2.57 L Hgb 7.6 L Hct 23.0 L MCHC RDW Plt Count Lymph % (Auto) [place] % (Auto) Lymph # (Auto) [place] # (Auto) Eos # (Auto) Baso # (Auto) Seg Neutrophils % Seg Neuts % (Manual) Lymphocytes % (Manual) Monocytes % (Manual) Basophils % (Manual) Nucleated RBC % Seg Neutrophils # Seg Neutrophils # Man Lymphocytes # (Manual) Monocytes # (Manual) Eosinophils # (Manual) Basophils # (Manual) PT INR APTT D-Dimer Heparin Anti-Xa Level ABG pH POC ABG pCO2 POC ABG pO2 ABG pO2 ABG HCO3 ABG O2 Saturation ABG Base Excess ABG Hemoglobin 11.4 L ABG Oxyhemoglobin ABG Sodium 130.1 L ABG Potassium 5.0 H ABG Chloride ABG Glucose Oxyhemoglobin Carboxyhemoglobin Sodium Potassium Chloride Carbon Dioxide BUN Creatinine Glucose POC Glucose Lactic Acid Calcium Phosphorus Magnesium Ferritin Direct Bilirubin AST ALT Alkaline Phosphatase Lactate Dehydrogenase Total Creatine Kinase 618 H C-Reactive Protein Total Protein Albumin Triglycerides Arterial Blood Glucose Arterial Blood Ionized Calcium 3.9 L Urine Creatinine Urine Chloride Vancomycin Trough Coronavirus (PCR) Crossmatch 06/30/20 06/30/20 06/30/20 03:50 03:50 11:39 WBC 13.1 H RBC Hgb Hct MCHC RDW Plt Count Lymph % (Auto) [place] % (Auto) Lymph # (Auto) [place] # (Auto) Eos # (Auto) Baso # (Auto) Seg Neutrophils % Seg Neuts % (Manual) 95.0 H Lymphocytes % (Manual) 3.0 L Monocytes % (Manual) Basophils % (Manual) Nucleated RBC % Seg Neutrophils # Seg Neutrophils # Man 12.4 H Lymphocytes # (Manual) 0.4 L Monocytes # (Manual) Eosinophils # (Manual) Basophils # (Manual) PT INR APTT D-Dimer Heparin Anti-Xa Level ABG pH POC ABG pCO2 POC ABG pO2 ABG pO2 ABG HCO3 ABG O2 Saturation ABG Base Excess ABG Hemoglobin ABG Oxyhemoglobin ABG Sodium ABG Potassium ABG Chloride ABG Glucose Oxyhemoglobin Carboxyhemoglobin Sodium 135 L Potassium 5.4 H D Chloride 93.6 L Carbon Dioxide BUN 85 H Creatinine 4.6 H Glucose POC Glucose 111 H Lactic Acid Calcium 7.1 L Phosphorus 9.40 H Magnesium Ferritin Direct Bilirubin AST ALT Alkaline Phosphatase Lactate Dehydrogenase Total Creatine Kinase C-Reactive Protein Total Protein Albumin Triglycerides Arterial Blood Glucose Arterial Blood Ionized Calcium Urine Creatinine Urine Chloride Vancomycin Trough Coronavirus (PCR) Crossmatch 06/30/20 06/30/20 07/01/20 13:12 Unknown 03:19 WBC RBC Hgb 7.8 L D Hct 23.2 L D MCHC RDW Plt Count Lymph % (Auto) [place] % (Auto) Lymph # (Auto) [place] # (Auto) Eos # (Auto) Baso # (Auto) Seg Neutrophils % Seg Neuts % (Manual) Lymphocytes % (Manual) Monocytes % (Manual) Basophils % (Manual) Nucleated RBC % Seg Neutrophils # Seg Neutrophils # Man Lymphocytes # (Manual) Monocytes # (Manual) Eosinophils # (Manual) Basophils # (Manual) PT INR APTT D-Dimer Heparin Anti-Xa Level ABG pH 7.461 H POC ABG pCO2 POC ABG pO2 77.2 L ABG pO2 ABG HCO3 ABG O2 Saturation ABG Base Excess ABG Hemoglobin 6.9 L ABG Oxyhemoglobin ABG Sodium 128.5 L ABG Potassium ABG Chloride 97.0 L ABG Glucose Oxyhemoglobin Carboxyhemoglobin Sodium Potassium Chloride Carbon Dioxide BUN Creatinine Glucose POC Glucose Lactic Acid Calcium Phosphorus Magnesium Ferritin Direct Bilirubin AST ALT Alkaline Phosphatase Lactate Dehydrogenase Total Creatine Kinase C-Reactive Protein Total Protein Albumin Triglycerides Arterial Blood Glucose Arterial Blood Ionized Calcium 3.7 L Urine Creatinine Urine Chloride Vancomycin Trough Coronavirus (PCR) Positive A Crossmatch 07/01/20 07/01/20 07/01/20 06:00 06:00 11:04 WBC 16.7 H RBC 2.16 L Hgb 6.4 L Hct 19.2 L* MCHC RDW Plt Count Lymph % (Auto) [place] % (Auto) Lymph # (Auto) [place] # (Auto) Eos # (Auto) Baso # (Auto) Seg Neutrophils % Seg Neuts % (Manual) Lymphocytes % (Manual) Monocytes % (Manual) Basophils % (Manual) Nucleated RBC % Seg Neutrophils # Seg Neutrophils # Man Lymphocytes # (Manual) Monocytes # (Manual) Eosinophils # (Manual) Basophils # (Manual) PT INR APTT D-Dimer Heparin Anti-Xa Level ABG pH POC ABG pCO2 POC ABG pO2 ABG pO2 ABG HCO3 ABG O2 Saturation ABG Base Excess ABG Hemoglobin ABG Oxyhemoglobin ABG Sodium ABG Potassium ABG Chloride ABG Glucose Oxyhemoglobin Carboxyhemoglobin Sodium 136 L Potassium Chloride 95.8 L Carbon Dioxide BUN 72 H Creatinine 4.3 H Glucose POC Glucose Lactic Acid Calcium 6.7 L Phosphorus Magnesium Ferritin Direct Bilirubin AST ALT Alkaline Phosphatase Lactate Dehydrogenase Total Creatine Kinase C-Reactive Protein Total Protein Albumin Triglycerides 250 H Arterial Blood Glucose Arterial Blood Ionized Calcium Urine Creatinine Urine Chloride Vancomycin Trough Coronavirus (PCR) Crossmatch See Detail 07/02/20 07/02/20 07/02/20 04:44 06:00 11:33 WBC 14.6 H RBC 2.47 L Hgb 7.4 L Hct 21.8 L MCHC RDW Plt Count Lymph % (Auto) [place] % (Auto) Lymph # (Auto) [place] # (Auto) Eos # (Auto) Baso # (Auto) Seg Neutrophils % Seg Neuts % (Manual) Lymphocytes % (Manual) Monocytes % (Manual) Basophils % (Manual) Nucleated RBC % Seg Neutrophils # Seg Neutrophils # Man Lymphocytes # (Manual) Monocytes # (Manual) Eosinophils # (Manual) Basophils # (Manual) PT INR APTT D-Dimer Heparin Anti-Xa Level ABG pH 7.457 H POC ABG pCO2 POC ABG pO2 79.4 L ABG pO2 ABG HCO3 ABG O2 Saturation ABG Base Excess ABG Hemoglobin 8.5 L ABG Oxyhemoglobin ABG Sodium 128.4 L ABG Potassium ABG Chloride 97.0 L ABG Glucose 100 H Oxyhemoglobin Carboxyhemoglobin Sodium 133 L Potassium 5.2 H Chloride 93.3 L Carbon Dioxide BUN 66 H Creatinine 4.1 H Glucose 102 H POC Glucose Lactic Acid Calcium 7.2 L Phosphorus Magnesium Ferritin Direct Bilirubin AST ALT Alkaline Phosphatase Lactate Dehydrogenase Total Creatine Kinase C-Reactive Protein Total Protein Albumin Triglycerides Arterial Blood Glucose 100 H Arterial Blood Ionized Calcium 3.9 L Urine Creatinine Urine Chloride Vancomycin Trough Coronavirus (PCR) Crossmatch 07/02/20 07/03/20 07/03/20 11:33 03:54 09:15 WBC 16.6 H RBC 2.44 L Hgb 7.3 L Hct 21.4 L MCHC RDW Plt Count Lymph % (Auto) [place] % (Auto) Lymph # (Auto) [place] # (Auto) Eos # (Auto) Baso # (Auto) Seg Neutrophils % Seg Neuts % (Manual) Lymphocytes % (Manual) Monocytes % (Manual) Basophils % (Manual) Nucleated RBC % Seg Neutrophils # Seg Neutrophils # Man Lymphocytes # (Manual) Monocytes # (Manual) Eosinophils # (Manual) Basophils # (Manual) PT INR APTT D-Dimer Heparin Anti-Xa Level ABG pH POC ABG pCO2 POC ABG pO2 66.1 L ABG pO2 ABG HCO3 ABG O2 Saturation ABG Base Excess ABG Hemoglobin 8.0 L ABG Oxyhemoglobin ABG Sodium 124.6 L ABG Potassium 5.5 H ABG Chloride 96.0 L ABG Glucose 111 H Oxyhemoglobin Carboxyhemoglobin Sodium Potassium Chloride Carbon Dioxide BUN Creatinine Glucose POC Glucose Lactic Acid Calcium Phosphorus Magnesium Ferritin Direct Bilirubin 0.7 H AST 94 H ALT 60 H Alkaline Phosphatase Lactate Dehydrogenase Total Creatine Kinase C-Reactive Protein Total Protein 4.4 L Albumin 1.9 L Triglycerides Arterial Blood Glucose 111 H Arterial Blood Ionized Calcium 3.8 L Urine Creatinine Urine Chloride Vancomycin Trough Coronavirus (PCR) Crossmatch 07/03/20 07/03/20 07/03/20 09:15 10:10 14:50 WBC RBC Hgb Hct MCHC RDW Plt Count Lymph % (Auto) [place] % (Auto) Lymph # (Auto) [place] # (Auto) Eos # (Auto) Baso # (Auto) Seg Neutrophils % Seg Neuts % (Manual) Lymphocytes % (Manual) Monocytes % (Manual) Basophils % (Manual) Nucleated RBC % Seg Neutrophils # Seg Neutrophils # Man Lymphocytes # (Manual) Monocytes # (Manual) Eosinophils # (Manual) Basophils # (Manual) PT INR APTT D-Dimer 6608.00 H Heparin Anti-Xa Level ABG pH POC ABG pCO2 POC ABG pO2 ABG pO2 ABG HCO3 ABG O2 Saturation ABG Base Excess ABG Hemoglobin ABG Oxyhemoglobin ABG Sodium ABG Potassium ABG Chloride ABG Glucose Oxyhemoglobin Carboxyhemoglobin Sodium 133 L Potassium 6.2 H* Chloride 93.1 L Carbon Dioxide BUN 89 H Creatinine 5.1 H Glucose POC Glucose Lactic Acid Calcium 7.0 L Phosphorus Magnesium Ferritin Direct Bilirubin AST ALT Alkaline Phosphatase Lactate Dehydrogenase Total Creatine Kinase C-Reactive Protein Total Protein Albumin Triglycerides Arterial Blood Glucose Arterial Blood Ionized Calcium Urine Creatinine Urine Chloride Vancomycin Trough Coronavirus (PCR) Positive A Crossmatch 07/03/20 07/03/20 07/03/20 14:50 14:50 14:50 WBC RBC Hgb Hct MCHC RDW Plt Count Lymph % (Auto) [place] % (Auto) Lymph # (Auto) [place] # (Auto) Eos # (Auto) Baso # (Auto) Seg Neutrophils % Seg Neuts % (Manual) Lymphocytes % (Manual) Monocytes % (Manual) Basophils % (Manual) Nucleated RBC % Seg Neutrophils # Seg Neutrophils # Man Lymphocytes # (Manual) Monocytes # (Manual) Eosinophils # (Manual) Basophils # (Manual) PT INR APTT D-Dimer Heparin Anti-Xa Level ABG pH POC ABG pCO2 POC ABG pO2 ABG pO2 ABG HCO3 ABG O2 Saturation ABG Base Excess ABG Hemoglobin ABG Oxyhemoglobin ABG Sodium ABG Potassium ABG Chloride ABG Glucose Oxyhemoglobin Carboxyhemoglobin Sodium Potassium Chloride Carbon Dioxide BUN Creatinine Glucose POC Glucose Lactic Acid < 0.20 L Calcium Phosphorus Magnesium Ferritin 1171.0 H Direct Bilirubin AST ALT Alkaline Phosphatase Lactate Dehydrogenase 525 H Total Creatine Kinase C-Reactive Protein 31.50 H Total Protein Albumin Triglycerides Arterial Blood Glucose Arterial Blood Ionized Calcium Urine Creatinine Urine Chloride Vancomycin Trough Coronavirus (PCR) Crossmatch 07/03/20 07/04/20 07/04/20 16:47 05:20 05:20 WBC 11.8 H RBC 2.32 L Hgb 6.7 L Hct 20.8 L MCHC RDW Plt Count Lymph % (Auto) 2.6 L [place] % (Auto) Lymph # (Auto) 0.3 L [place] # (Auto) Eos # (Auto) Baso # (Auto) Seg Neutrophils % Seg Neuts % (Manual) Lymphocytes % (Manual) Monocytes % (Manual) Basophils % (Manual) Nucleated RBC % Seg Neutrophils # 11.0 H Seg Neutrophils # Man Lymphocytes # (Manual) Monocytes # (Manual) Eosinophils # (Manual) Basophils # (Manual) PT INR APTT D-Dimer Heparin Anti-Xa Level ABG pH POC ABG pCO2 POC ABG pO2 ABG pO2 ABG HCO3 ABG O2 Saturation ABG Base Excess ABG Hemoglobin ABG Oxyhemoglobin ABG Sodium ABG Potassium ABG Chloride ABG Glucose Oxyhemoglobin Carboxyhemoglobin Sodium Potassium 6.0 H Chloride 97.8 L Carbon Dioxide BUN 75 H Creatinine 4.5 H Glucose 121 H POC Glucose 107 H Lactic Acid Calcium 7.9 L Phosphorus Magnesium Ferritin Direct Bilirubin AST ALT Alkaline Phosphatase Lactate Dehydrogenase Total Creatine Kinase C-Reactive Protein Total Protein Albumin Triglycerides Arterial Blood Glucose Arterial Blood Ionized Calcium Urine Creatinine Urine Chloride Vancomycin Trough Coronavirus (PCR) Crossmatch 07/04/20 07/04/20 07/04/20 05:20 05:50 09:25 WBC RBC Hgb Hct MCHC RDW Plt Count Lymph % (Auto) [place] % (Auto) Lymph # (Auto) [place] # (Auto) Eos # (Auto) Baso # (Auto) Seg Neutrophils % Seg Neuts % (Manual) Lymphocytes % (Manual) Monocytes % (Manual) Basophils % (Manual) Nucleated RBC % Seg Neutrophils # Seg Neutrophils # Man Lymphocytes # (Manual) Monocytes # (Manual) Eosinophils # (Manual) Basophils # (Manual) PT INR APTT D-Dimer Heparin Anti-Xa Level ABG pH 7.324 L POC ABG pCO2 POC ABG pO2 ABG pO2 98.9 H ABG HCO3 26.8 H ABG O2 Saturation ABG Base Excess ABG Hemoglobin < 5.1 L ABG Oxyhemoglobin ABG Sodium ABG Potassium ABG Chloride ABG Glucose Oxyhemoglobin Carboxyhemoglobin Sodium Potassium Chloride Carbon Dioxide BUN Creatinine Glucose POC Glucose 114 H Lactic Acid Calcium Phosphorus Magnesium Ferritin Direct Bilirubin AST ALT Alkaline Phosphatase Lactate Dehydrogenase Total Creatine Kinase C-Reactive Protein Total Protein Albumin Triglycerides Arterial Blood Glucose Arterial Blood Ionized Calcium Urine Creatinine Urine Chloride Vancomycin Trough Coronavirus (PCR) Crossmatch See Detail 07/04/20 07/04/20 07/04/20 12:33 17:41 23:04 WBC RBC Hgb Hct MCHC RDW Plt Count Lymph % (Auto) [place] % (Auto) Lymph # (Auto) [place] # (Auto) Eos # (Auto) Baso # (Auto) Seg Neutrophils % Seg Neuts % (Manual) Lymphocytes % (Manual) Monocytes % (Manual) Basophils % (Manual) Nucleated RBC % Seg Neutrophils # Seg Neutrophils # Man Lymphocytes # (Manual) Monocytes # (Manual) Eosinophils # (Manual) Basophils # (Manual) PT INR APTT D-Dimer Heparin Anti-Xa Level ABG pH POC ABG pCO2 POC ABG pO2 ABG pO2 ABG HCO3 ABG O2 Saturation ABG Base Excess ABG Hemoglobin ABG Oxyhemoglobin ABG Sodium ABG Potassium ABG Chloride ABG Glucose Oxyhemoglobin Carboxyhemoglobin Sodium Potassium Chloride Carbon Dioxide BUN Creatinine Glucose POC Glucose 119 H 109 H 116 H Lactic Acid Calcium Phosphorus Magnesium Ferritin Direct Bilirubin AST ALT Alkaline Phosphatase Lactate Dehydrogenase Total Creatine Kinase C-Reactive Protein Total Protein Albumin Triglycerides Arterial Blood Glucose Arterial Blood Ionized Calcium Urine Creatinine Urine Chloride Vancomycin Trough Coronavirus (PCR) Crossmatch 07/05/20 07/05/20 07/05/20 04:30 08:21 08:21 WBC RBC 2.77 L Hgb 7.9 L Hct 23.9 L MCHC RDW 16.7 H Plt Count Lymph % (Auto) 7.5 L [place] % (Auto) Lymph # (Auto) 0.7 L [place] # (Auto) Eos # (Auto) Baso # (Auto) Seg Neutrophils % 85.8 H Seg Neuts % (Manual) Lymphocytes % (Manual) Monocytes % (Manual) Basophils % (Manual) Nucleated RBC % Seg Neutrophils # 7.8 H Seg Neutrophils # Man Lymphocytes # (Manual) Monocytes # (Manual) Eosinophils # (Manual) Basophils # (Manual) PT INR APTT D-Dimer Heparin Anti-Xa Level ABG pH 7.295 L POC ABG pCO2 POC ABG pO2 ABG pO2 151.9 H ABG HCO3 26.8 H ABG O2 Saturation ABG Base Excess ABG Hemoglobin 7.3 L ABG Oxyhemoglobin ABG Sodium ABG Potassium ABG Chloride ABG Glucose Oxyhemoglobin Carboxyhemoglobin Sodium Potassium Chloride Carbon Dioxide BUN Creatinine Glucose POC Glucose Lactic Acid Calcium Phosphorus Magnesium Ferritin Direct Bilirubin AST ALT Alkaline Phosphatase Lactate Dehydrogenase Total Creatine Kinase C-Reactive Protein Total Protein Albumin Triglycerides 258 H Arterial Blood Glucose Arterial Blood Ionized Calcium Urine Creatinine Urine Chloride Vancomycin Trough Coronavirus (PCR) Crossmatch 07/05/20 07/05/20 07/06/20 08:21 12:12 04:29 WBC RBC Hgb Hct MCHC RDW Plt Count Lymph % (Auto) [place] % (Auto) Lymph # (Auto) [place] # (Auto) Eos # (Auto) Baso # (Auto) Seg Neutrophils % Seg Neuts % (Manual) Lymphocytes % (Manual) Monocytes % (Manual) Basophils % (Manual) Nucleated RBC % Seg Neutrophils # Seg Neutrophils # Man Lymphocytes # (Manual) Monocytes # (Manual) Eosinophils # (Manual) Basophils # (Manual) PT INR APTT D-Dimer Heparin Anti-Xa Level ABG pH 7.291 L POC ABG pCO2 51.3 H POC ABG pO2 ABG pO2 ABG HCO3 ABG O2 Saturation ABG Base Excess ABG Hemoglobin 8.5 L ABG Oxyhemoglobin ABG Sodium 129.6 L ABG Potassium 4.8 H ABG Chloride 96.0 L ABG Glucose Oxyhemoglobin Carboxyhemoglobin Sodium 133 L Potassium 5.6 H Chloride 94.4 L Carbon Dioxide BUN 80 H Creatinine 4.2 H Glucose 114 H POC Glucose 106 H Lactic Acid Calcium 7.6 L Phosphorus Magnesium Ferritin Direct Bilirubin 0.5 H AST 75 H ALT 86 H Alkaline Phosphatase Lactate Dehydrogenase Total Creatine Kinase C-Reactive Protein Total Protein 5.6 L D Albumin 1.9 L Triglycerides Arterial Blood Glucose Arterial Blood Ionized Calcium 4.2 L Urine Creatinine Urine Chloride Vancomycin Trough Coronavirus (PCR) Crossmatch 07/06/20 07/06/20 07/06/20 11:35 11:35 12:16 WBC RBC 2.54 L Hgb 7.5 L Hct 21.5 L MCHC 35 H RDW 15.7 H Plt Count Lymph % (Auto) [place] % (Auto) Lymph # (Auto) [place] # (Auto) Eos # (Auto) Baso # (Auto) Seg Neutrophils % Seg Neuts % (Manual) Lymphocytes % (Manual) Monocytes % (Manual) Basophils % (Manual) Nucleated RBC % Seg Neutrophils # Seg Neutrophils # Man Lymphocytes # (Manual) Monocytes # (Manual) Eosinophils # (Manual) Basophils # (Manual) PT INR APTT D-Dimer Heparin Anti-Xa Level ABG pH POC ABG pCO2 POC ABG pO2 ABG pO2 ABG HCO3 ABG O2 Saturation ABG Base Excess ABG Hemoglobin ABG Oxyhemoglobin ABG Sodium ABG Potassium ABG Chloride ABG Glucose Oxyhemoglobin Carboxyhemoglobin Sodium 130 L Potassium Chloride 92.2 L Carbon Dioxide 19 L D BUN 107 H Creatinine 5.1 H Glucose 106 H POC Glucose 106 H Lactic Acid Calcium 7.5 L Phosphorus Magnesium Ferritin Direct Bilirubin AST ALT Alkaline Phosphatase Lactate Dehydrogenase Total Creatine Kinase C-Reactive Protein Total Protein Albumin Triglycerides Arterial Blood Glucose Arterial Blood Ionized Calcium Urine Creatinine Urine Chloride Vancomycin Trough Coronavirus (PCR) Crossmatch 07/06/20 07/06/20 07/06/20 17:01 21:56 23:41 WBC RBC Hgb Hct MCHC RDW Plt Count Lymph % (Auto) [place] % (Auto) Lymph # (Auto) [place] # (Auto) Eos # (Auto) Baso # (Auto) Seg Neutrophils % Seg Neuts % (Manual) Lymphocytes % (Manual) Monocytes % (Manual) Basophils % (Manual) Nucleated RBC % Seg Neutrophils # Seg Neutrophils # Man Lymphocytes # (Manual) Monocytes # (Manual) Eosinophils # (Manual) Basophils # (Manual) PT INR APTT D-Dimer Heparin Anti-Xa Level ABG pH POC ABG pCO2 POC ABG pO2 ABG pO2 ABG HCO3 ABG O2 Saturation ABG Base Excess ABG Hemoglobin ABG Oxyhemoglobin ABG Sodium ABG Potassium ABG Chloride ABG Glucose Oxyhemoglobin Carboxyhemoglobin Sodium 135 L Potassium 5.1 H Chloride Carbon Dioxide BUN 73 H Creatinine 4.0 H Glucose 112 H POC Glucose 109 H 111 H Lactic Acid Calcium 7.8 L Phosphorus Magnesium Ferritin Direct Bilirubin AST ALT Alkaline Phosphatase Lactate Dehydrogenase Total Creatine Kinase C-Reactive Protein Total Protein Albumin Triglycerides Arterial Blood Glucose Arterial Blood Ionized Calcium Urine Creatinine Urine Chloride Vancomycin Trough Coronavirus (PCR) Crossmatch 0207/07/20 07/07/20 04:18 05:04 05:29 WBC RBC 2.46 L Hgb 7.6 L Hct 21.5 L MCHC 35 H RDW 16.5 H Plt Count Lymph % (Auto) [place] % (Auto) Lymph # (Auto) [place] # (Auto) Eos # (Auto) Baso # (Auto) Seg Neutrophils % Seg Neuts % (Manual) 82.0 H Lymphocytes % (Manual) Monocytes % (Manual) Basophils % (Manual) Nucleated RBC % 1.0 H Seg Neutrophils # Seg Neutrophils # Man Lymphocytes # (Manual) 1.1 L Monocytes # (Manual) Eosinophils # (Manual) Basophils # (Manual) PT INR APTT D-Dimer Heparin Anti-Xa Level ABG pH POC ABG pCO2 POC ABG pO2 79.6 L ABG pO2 ABG HCO3 ABG O2 Saturation ABG Base Excess ABG Hemoglobin 8.2 L ABG Oxyhemoglobin ABG Sodium 133.3 L ABG Potassium 4.7 H ABG Chloride ABG Glucose 135 H Oxyhemoglobin Carboxyhemoglobin Sodium Potassium Chloride Carbon Dioxide BUN Creatinine Glucose POC Glucose 112 H Lactic Acid Calcium Phosphorus Magnesium Ferritin Direct Bilirubin AST ALT Alkaline Phosphatase Lactate Dehydrogenase Total Creatine Kinase C-Reactive Protein Total Protein Albumin Triglycerides Arterial Blood Glucose 135 H Arterial Blood Ionized Calcium 4.5 L Urine Creatinine Urine Chloride Vancomycin Trough Coronavirus (PCR) Crossmatch 07/07/20 07/07/20 07/07/20 10:17 12:18 17:43 WBC RBC Hgb Hct MCHC RDW Plt Count Lymph % (Auto) [place] % (Auto) Lymph # (Auto) [place] # (Auto) Eos # (Auto) Baso # (Auto) Seg Neutrophils % Seg Neuts % (Manual) Lymphocytes % (Manual) Monocytes % (Manual) Basophils % (Manual) Nucleated RBC % Seg Neutrophils # Seg Neutrophils # Man Lymphocytes # (Manual) Monocytes # (Manual) Eosinophils # (Manual) Basophils # (Manual) PT INR APTT D-Dimer Heparin Anti-Xa Level ABG pH POC ABG pCO2 POC ABG pO2 ABG pO2 ABG HCO3 ABG O2 Saturation ABG Base Excess ABG Hemoglobin ABG Oxyhemoglobin ABG Sodium ABG Potassium ABG Chloride ABG Glucose Oxyhemoglobin Carboxyhemoglobin Sodium 136 L Potassium Chloride 96.8 L Carbon Dioxide BUN 82 H Creatinine 4.3 H Glucose 129 H POC Glucose 108 H 116 H Lactic Acid Calcium 7.8 L Phosphorus Magnesium Ferritin Direct Bilirubin AST ALT Alkaline Phosphatase Lactate Dehydrogenase Total Creatine Kinase C-Reactive Protein Total Protein Albumin Triglycerides Arterial Blood Glucose Arterial Blood Ionized Calcium Urine Creatinine Urine Chloride Vancomycin Trough Coronavirus (PCR) Crossmatch 07/07/20 07/08/20 07/08/20 23:31 04:00 04:00 WBC RBC 2.52 L Hgb 7.3 L Hct 22.2 L MCHC RDW 16.6 H Plt Count Lymph % (Auto) 11.5 L [place] % (Auto) Lymph # (Auto) [place] # (Auto) Eos # (Auto) Baso # (Auto) Seg Neutrophils % 78.2 H Seg Neuts % (Manual) Lymphocytes % (Manual) Monocytes % (Manual) Basophils % (Manual) Nucleated RBC % Seg Neutrophils # 8.0 H Seg Neutrophils # Man Lymphocytes # (Manual) Monocytes # (Manual) Eosinophils # (Manual) Basophils # (Manual) PT INR APTT D-Dimer Heparin Anti-Xa Level ABG pH POC ABG pCO2 POC ABG pO2 ABG pO2 ABG HCO3 ABG O2 Saturation ABG Base Excess ABG Hemoglobin ABG Oxyhemoglobin ABG Sodium ABG Potassium ABG Chloride ABG Glucose Oxyhemoglobin Carboxyhemoglobin Sodium 132 L Potassium 5.4 H Chloride 92.5 L Carbon Dioxide BUN 98 H Creatinine 4.9 H Glucose 105 H POC Glucose 117 H Lactic Acid Calcium 7.9 L Phosphorus Magnesium Ferritin Direct Bilirubin AST ALT Alkaline Phosphatase Lactate Dehydrogenase Total Creatine Kinase C-Reactive Protein Total Protein Albumin Triglycerides Arterial Blood Glucose Arterial Blood Ionized Calcium Urine Creatinine Urine Chloride Vancomycin Trough Coronavirus (PCR) Crossmatch 07/08/20 07/08/20 07/08/20 04:09 11:34 17:05 WBC RBC Hgb Hct MCHC RDW Plt Count Lymph % (Auto) [place] % (Auto) Lymph # (Auto) [place] # (Auto) Eos # (Auto) Baso # (Auto) Seg Neutrophils % Seg Neuts % (Manual) Lymphocytes % (Manual) Monocytes % (Manual) Basophils % (Manual) Nucleated RBC % Seg Neutrophils # Seg Neutrophils # Man Lymphocytes # (Manual) Monocytes # (Manual) Eosinophils # (Manual) Basophils # (Manual) PT INR APTT D-Dimer Heparin Anti-Xa Level ABG pH 7.220 L POC ABG pCO2 60.5 H POC ABG pO2 ABG pO2 ABG HCO3 ABG O2 Saturation ABG Base Excess ABG Hemoglobin 8.2 L ABG Oxyhemoglobin ABG Sodium 131.3 L ABG Potassium 5.2 H ABG Chloride ABG Glucose 103 H Oxyhemoglobin Carboxyhemoglobin Sodium Potassium Chloride Carbon Dioxide BUN Creatinine Glucose POC Glucose 140 H 125 H Lactic Acid Calcium Phosphorus Magnesium Ferritin Direct Bilirubin AST ALT Alkaline Phosphatase Lactate Dehydrogenase Total Creatine Kinase C-Reactive Protein Total Protein Albumin Triglycerides Arterial Blood Glucose 103 H Arterial Blood Ionized Calcium 4.3 L Urine Creatinine Urine Chloride Vancomycin Trough Coronavirus (PCR) Crossmatch 07/08/20 07/08/20 07/09/20 20:21 23:43 05:10 WBC RBC Hgb Hct MCHC RDW Plt Count Lymph % (Auto) [place] % (Auto) Lymph # (Auto) [place] # (Auto) Eos # (Auto) Baso # (Auto) Seg Neutrophils % Seg Neuts % (Manual) Lymphocytes % (Manual) Monocytes % (Manual) Basophils % (Manual) Nucleated RBC % Seg Neutrophils # Seg Neutrophils # Man Lymphocytes # (Manual) Monocytes # (Manual) Eosinophils # (Manual) Basophils # (Manual) PT INR APTT D-Dimer Heparin Anti-Xa Level ABG pH 7.20 L POC ABG pCO2 69.8 H POC ABG pO2 138.9 H 76.1 L ABG pO2 ABG HCO3 ABG O2 Saturation ABG Base Excess ABG Hemoglobin 11.9 L 8.4 L ABG Oxyhemoglobin ABG Sodium 133.1 L 131.2 L ABG Potassium 5.0 H 4.7 H ABG Chloride ABG Glucose 120 H 102 H Oxyhemoglobin Carboxyhemoglobin Sodium Potassium Chloride Carbon Dioxide BUN Creatinine Glucose POC Glucose 118 H Lactic Acid Calcium Phosphorus Magnesium Ferritin Direct Bilirubin AST ALT Alkaline Phosphatase Lactate Dehydrogenase Total Creatine Kinase C-Reactive Protein Total Protein Albumin Triglycerides Arterial Blood Glucose 120 H 102 H Arterial Blood Ionized Calcium 4.4 L 4.3 L Urine Creatinine Urine Chloride Vancomycin Trough Coronavirus (PCR) Crossmatch 07/09/20 07/09/20 07/09/20 11:51 17:04 21:00 WBC RBC Hgb Hct MCHC RDW Plt Count Lymph % (Auto) [place] % (Auto) Lymph # (Auto) [place] # (Auto) Eos # (Auto) Baso # (Auto) Seg Neutrophils % Seg Neuts % (Manual) Lymphocytes % (Manual) Monocytes % (Manual) Basophils % (Manual) Nucleated RBC % Seg Neutrophils # Seg Neutrophils # Man Lymphocytes # (Manual) Monocytes # (Manual) Eosinophils # (Manual) Basophils # (Manual) PT INR APTT D-Dimer Heparin Anti-Xa Level ABG pH POC ABG pCO2 POC ABG pO2 114.2 H ABG pO2 ABG HCO3 ABG O2 Saturation ABG Base Excess ABG Hemoglobin 7.8 L ABG Oxyhemoglobin ABG Sodium 132.3 L ABG Potassium 4.6 H ABG Chloride ABG Glucose Oxyhemoglobin Carboxyhemoglobin Sodium Potassium Chloride Carbon Dioxide BUN Creatinine Glucose POC Glucose 113 H 111 H Lactic Acid Calcium Phosphorus Magnesium Ferritin Direct Bilirubin AST ALT Alkaline Phosphatase Lactate Dehydrogenase Total Creatine Kinase C-Reactive Protein Total Protein Albumin Triglycerides Arterial Blood Glucose Arterial Blood Ionized Calcium 4.4 L Urine Creatinine Urine Chloride Vancomycin Trough Coronavirus (PCR) Crossmatch 07/10/20 07/10/20 07/10/20 03:49 03:55 03:55 WBC 18.1 H RBC 2.37 L Hgb 6.8 L Hct 20.7 L MCHC RDW 16.9 H Plt Count Lymph % (Auto) [place] % (Auto) Lymph # (Auto) [place] # (Auto) Eos # (Auto) Baso # (Auto) Seg Neutrophils % Seg Neuts % (Manual) 79.0 H Lymphocytes % (Manual) 10.0 L Monocytes % (Manual) Basophils % (Manual) Nucleated RBC % 1.0 H Seg Neutrophils # Seg Neutrophils # Man 14.3 H Lymphocytes # (Manual) Monocytes # (Manual) Eosinophils # (Manual) 0.7 H Basophils # (Manual) PT INR APTT D-Dimer Heparin Anti-Xa Level ABG pH POC ABG pCO2 POC ABG pO2 ABG pO2 ABG HCO3 ABG O2 Saturation ABG Base Excess ABG Hemoglobin 7.7 L ABG Oxyhemoglobin ABG Sodium 130.3 L ABG Potassium 4.6 H ABG Chloride ABG Glucose Oxyhemoglobin Carboxyhemoglobin Sodium 136 L Potassium Chloride 96.0 L Carbon Dioxide BUN 76 H Creatinine 3.6 H Glucose POC Glucose Lactic Acid Calcium 7.4 L Phosphorus Magnesium Ferritin Direct Bilirubin AST ALT Alkaline Phosphatase Lactate Dehydrogenase Total Creatine Kinase C-Reactive Protein Total Protein Albumin Triglycerides Arterial Blood Glucose Arterial Blood Ionized Calcium 4.2 L Urine Creatinine Urine Chloride Vancomycin Trough Coronavirus (PCR) Crossmatch 07/10/20 07/11/20 07/11/20 13:24 04:08 06:52 WBC 26.0 H RBC 2.91 L Hgb 8.2 L Hct 24.8 L MCHC RDW 17.2 H Plt Count Lymph % (Auto) [place] % (Auto) Lymph # (Auto) [place] # (Auto) Eos # (Auto) Baso # (Auto) Seg Neutrophils % Seg Neuts % (Manual) Lymphocytes % (Manual) 1.0 L Monocytes % (Manual) 11.0 H Basophils % (Manual) Nucleated RBC % Seg Neutrophils # Seg Neutrophils # Man 16.9 H Lymphocytes # (Manual) 0.3 L Monocytes # (Manual) 2.9 H Eosinophils # (Manual) 1.0 H Basophils # (Manual) PT INR APTT D-Dimer Heparin Anti-Xa Level ABG pH POC ABG pCO2 POC ABG pO2 ABG pO2 ABG HCO3 ABG O2 Saturation ABG Base Excess ABG Hemoglobin 8.5 L ABG Oxyhemoglobin ABG Sodium 130.6 L ABG Potassium 4.9 H ABG Chloride ABG Glucose 105 H Oxyhemoglobin Carboxyhemoglobin Sodium Potassium Chloride Carbon Dioxide BUN Creatinine Glucose POC Glucose Lactic Acid Calcium Phosphorus Magnesium Ferritin Direct Bilirubin AST ALT Alkaline Phosphatase Lactate Dehydrogenase Total Creatine Kinase C-Reactive Protein Total Protein Albumin Triglycerides Arterial Blood Glucose 105 H Arterial Blood Ionized Calcium 4.1 L Urine Creatinine Urine Chloride Vancomycin Trough Coronavirus (PCR) Crossmatch See Detail 07/11/20 07/11/20 07/11/20 06:52 08:48 11:39 WBC RBC Hgb Hct MCHC RDW Plt Count Lymph % (Auto) [place] % (Auto) Lymph # (Auto) [place] # (Auto) Eos # (Auto) Baso # (Auto) Seg Neutrophils % Seg Neuts % (Manual) Lymphocytes % (Manual) Monocytes % (Manual) Basophils % (Manual) Nucleated RBC % Seg Neutrophils # Seg Neutrophils # Man Lymphocytes # (Manual) Monocytes # (Manual) Eosinophils # (Manual) Basophils # (Manual) PT INR APTT D-Dimer Heparin Anti-Xa Level ABG pH POC ABG pCO2 POC ABG pO2 ABG pO2 ABG HCO3 ABG O2 Saturation ABG Base Excess ABG Hemoglobin ABG Oxyhemoglobin ABG Sodium ABG Potassium ABG Chloride ABG Glucose Oxyhemoglobin Carboxyhemoglobin Sodium 133 L 134 L Potassium 5.3 H Chloride 93.5 L 94.8 L Carbon Dioxide BUN 101 H 99 H Creatinine 4.5 H 4.6 H Glucose 102 H POC Glucose 116 H Lactic Acid Calcium 7.8 L 7.6 L Phosphorus Magnesium Ferritin Direct Bilirubin AST ALT Alkaline Phosphatase Lactate Dehydrogenase Total Creatine Kinase C-Reactive Protein Total Protein Albumin Triglycerides Arterial Blood Glucose Arterial Blood Ionized Calcium Urine Creatinine Urine Chloride Vancomycin Trough Coronavirus (PCR) Crossmatch 07/11/20 07/12/20 07/12/20 17:23 00:04 03:20 WBC RBC Hgb Hct MCHC RDW Plt Count Lymph % (Auto) [place] % (Auto) Lymph # (Auto) [place] # (Auto) Eos # (Auto) Baso # (Auto) Seg Neutrophils % Seg Neuts % (Manual) Lymphocytes % (Manual) Monocytes % (Manual) Basophils % (Manual) Nucleated RBC % Seg Neutrophils # Seg Neutrophils # Man Lymphocytes # (Manual) Monocytes # (Manual) Eosinophils # (Manual) Basophils # (Manual) PT INR APTT D-Dimer Heparin Anti-Xa Level ABG pH POC ABG pCO2 49.1 H POC ABG pO2 130.3 H ABG pO2 ABG HCO3 ABG O2 Saturation ABG Base Excess ABG Hemoglobin 8.7 L ABG Oxyhemoglobin ABG Sodium 135.2 L ABG Potassium 4.7 H ABG Chloride ABG Glucose 128 H Oxyhemoglobin Carboxyhemoglobin Sodium Potassium Chloride Carbon Dioxide BUN Creatinine Glucose POC Glucose 142 H 113 H Lactic Acid Calcium Phosphorus Magnesium Ferritin Direct Bilirubin AST ALT Alkaline Phosphatase Lactate Dehydrogenase Total Creatine Kinase C-Reactive Protein Total Protein Albumin Triglycerides Arterial Blood Glucose 128 H Arterial Blood Ionized Calcium 4.4 L Urine Creatinine Urine Chloride Vancomycin Trough Coronavirus (PCR) Crossmatch 07/12/20 07/12/20 07/12/20 03:40 03:40 04:00 WBC 24.3 H RBC 2.83 L Hgb 8.0 L Hct 24.9 L MCHC RDW 17.7 H Plt Count Lymph % (Auto) 5.6 L [place] % (Auto) 7.4 H Lymph # (Auto) [place] # (Auto) 1.8 H Eos # (Auto) 0.7 H Baso # (Auto) Seg Neutrophils % 83.9 H Seg Neuts % (Manual) Lymphocytes % (Manual) Monocytes % (Manual) Basophils % (Manual) Nucleated RBC % Seg Neutrophils # 20.4 H Seg Neutrophils # Man Lymphocytes # (Manual) Monocytes # (Manual) Eosinophils # (Manual) Basophils # (Manual) PT INR APTT D-Dimer Heparin Anti-Xa Level ABG pH POC ABG pCO2 POC ABG pO2 ABG pO2 ABG HCO3 ABG O2 Saturation ABG Base Excess ABG Hemoglobin ABG Oxyhemoglobin ABG Sodium ABG Potassium ABG Chloride ABG Glucose Oxyhemoglobin Carboxyhemoglobin Sodium 134 L Potassium Chloride 95.5 L Carbon Dioxide BUN 79 H Creatinine 3.7 H Glucose 127 H POC Glucose Lactic Acid Calcium 7.8 L Phosphorus Magnesium Ferritin Direct Bilirubin AST ALT Alkaline Phosphatase Lactate Dehydrogenase Total Creatine Kinase C-Reactive Protein Total Protein Albumin Triglycerides 246 H Arterial Blood Glucose Arterial Blood Ionized Calcium Urine Creatinine Urine Chloride Vancomycin Trough Coronavirus (PCR) Crossmatch 07/12/20 07/12/20 07/12/20 05:48 11:50 17:29 WBC RBC Hgb Hct MCHC RDW Plt Count Lymph % (Auto) [place] % (Auto) Lymph # (Auto) [place] # (Auto) Eos # (Auto) Baso # (Auto) Seg Neutrophils % Seg Neuts % (Manual) Lymphocytes % (Manual) Monocytes % (Manual) Basophils % (Manual) Nucleated RBC % Seg Neutrophils # Seg Neutrophils # Man Lymphocytes # (Manual) Monocytes # (Manual) Eosinophils # (Manual) Basophils # (Manual) PT INR APTT D-Dimer Heparin Anti-Xa Level ABG pH POC ABG pCO2 POC ABG pO2 ABG pO2 ABG HCO3 ABG O2 Saturation ABG Base Excess ABG Hemoglobin ABG Oxyhemoglobin ABG Sodium ABG Potassium ABG Chloride ABG Glucose Oxyhemoglobin Carboxyhemoglobin Sodium Potassium Chloride Carbon Dioxide BUN Creatinine Glucose POC Glucose 136 H 113 H 110 H Lactic Acid Calcium Phosphorus Magnesium Ferritin Direct Bilirubin AST ALT Alkaline Phosphatase Lactate Dehydrogenase Total Creatine Kinase C-Reactive Protein Total Protein Albumin Triglycerides Arterial Blood Glucose Arterial Blood Ionized Calcium Urine Creatinine Urine Chloride Vancomycin Trough Coronavirus (PCR) Crossmatch 07/12/20 07/13/20 07/13/20 23:43 03:11 06:59 WBC RBC Hgb Hct MCHC RDW Plt Count Lymph % (Auto) [place] % (Auto) Lymph # (Auto) [place] # (Auto) Eos # (Auto) Baso # (Auto) Seg Neutrophils % Seg Neuts % (Manual) Lymphocytes % (Manual) Monocytes % (Manual) Basophils % (Manual) Nucleated RBC % Seg Neutrophils # Seg Neutrophils # Man Lymphocytes # (Manual) Monocytes # (Manual) Eosinophils # (Manual) Basophils # (Manual) PT INR APTT D-Dimer Heparin Anti-Xa Level ABG pH POC ABG pCO2 49.0 H POC ABG pO2 69.6 L ABG pO2 ABG HCO3 ABG O2 Saturation ABG Base Excess ABG Hemoglobin 8.5 L ABG Oxyhemoglobin 90.5 L ABG Sodium 133.6 L ABG Potassium 5.1 H ABG Chloride ABG Glucose 104 H Oxyhemoglobin Carboxyhemoglobin Sodium 133 L Potassium 5.7 H Chloride 96.3 L Carbon Dioxide 20 L D BUN 102 H Creatinine 4.4 H Glucose 101 H POC Glucose 120 H Lactic Acid Calcium 7.9 L Phosphorus Magnesium Ferritin Direct Bilirubin AST 61 H ALT 85 H Alkaline Phosphatase 144 H Lactate Dehydrogenase Total Creatine Kinase C-Reactive Protein Total Protein 5.4 L Albumin 2.0 L Triglycerides Arterial Blood Glucose 104 H Arterial Blood Ionized Calcium 4.3 L Urine Creatinine Urine Chloride Vancomycin Trough Coronavirus (PCR) Crossmatch 07/13/20 07/13/20 07/13/20 08:48 12:14 15:12 WBC 27.5 H RBC 3.03 L Hgb 8.7 L Hct 27.0 L MCHC RDW 18.0 H Plt Count Lymph % (Auto) [place] % (Auto) Lymph # (Auto) [place] # (Auto) Eos # (Auto) Baso # (Auto) Seg Neutrophils % Seg Neuts % (Manual) Lymphocytes % (Manual) Monocytes % (Manual) Basophils % (Manual) Nucleated RBC % Seg Neutrophils # Seg Neutrophils # Man Lymphocytes # (Manual) Monocytes # (Manual) Eosinophils # (Manual) Basophils # (Manual) PT INR APTT D-Dimer Heparin Anti-Xa Level ABG pH POC ABG pCO2 POC ABG pO2 ABG pO2 ABG HCO3 ABG O2 Saturation ABG Base Excess ABG Hemoglobin ABG Oxyhemoglobin ABG Sodium ABG Potassium ABG Chloride ABG Glucose Oxyhemoglobin Carboxyhemoglobin Sodium Potassium 5.5 H Chloride Carbon Dioxide BUN 88 H Creatinine 3.8 H Glucose 133 H POC Glucose 134 H Lactic Acid Calcium 7.5 L Phosphorus Magnesium Ferritin Direct Bilirubin AST ALT Alkaline Phosphatase Lactate Dehydrogenase Total Creatine Kinase C-Reactive Protein Total Protein Albumin Triglycerides Arterial Blood Glucose Arterial Blood Ionized Calcium Urine Creatinine Urine Chloride Vancomycin Trough Coronavirus (PCR) Crossmatch 07/13/20 07/13/20 07/13/20 16:46 16:47 18:46 WBC RBC Hgb 7.4 L Hct 22.1 L MCHC RDW Plt Count Lymph % (Auto) [place] % (Auto) Lymph # (Auto) [place] # (Auto) Eos # (Auto) Baso # (Auto) Seg Neutrophils % Seg Neuts % (Manual) Lymphocytes % (Manual) Monocytes % (Manual) Basophils % (Manual) Nucleated RBC % Seg Neutrophils # Seg Neutrophils # Man Lymphocytes # (Manual) Monocytes # (Manual) Eosinophils # (Manual) Basophils # (Manual) PT INR APTT D-Dimer Heparin Anti-Xa Level ABG pH POC ABG pCO2 POC ABG pO2 ABG pO2 ABG HCO3 ABG O2 Saturation ABG Base Excess ABG Hemoglobin ABG Oxyhemoglobin ABG Sodium ABG Potassium ABG Chloride ABG Glucose Oxyhemoglobin Carboxyhemoglobin Sodium Potassium Chloride Carbon Dioxide BUN Creatinine Glucose POC Glucose 118 H Lactic Acid Calcium Phosphorus Magnesium Ferritin Direct Bilirubin AST ALT Alkaline Phosphatase Lactate Dehydrogenase Total Creatine Kinase C-Reactive Protein Total Protein Albumin Triglycerides Arterial Blood Glucose Arterial Blood Ionized Calcium Urine Creatinine Urine Chloride Vancomycin Trough Coronavirus (PCR) Crossmatch See Detail 07/13/20 07/14/20 07/14/20 23:34 04:25 12:21 WBC RBC Hgb Hct MCHC RDW Plt Count Lymph % (Auto) [place] % (Auto) Lymph # (Auto) [place] # (Auto) Eos # (Auto) Baso # (Auto) Seg Neutrophils % Seg Neuts % (Manual) Lymphocytes % (Manual) Monocytes % (Manual) Basophils % (Manual) Nucleated RBC % Seg Neutrophils # Seg Neutrophils # Man Lymphocytes # (Manual) Monocytes # (Manual) Eosinophils # (Manual) Basophils # (Manual) PT INR APTT D-Dimer Heparin Anti-Xa Level ABG pH POC ABG pCO2 POC ABG pO2 ABG pO2 ABG HCO3 ABG O2 Saturation ABG Base Excess ABG Hemoglobin 8.9 L ABG Oxyhemoglobin ABG Sodium 133.1 L ABG Potassium 4.7 H ABG Chloride ABG Glucose 113 H Oxyhemoglobin Carboxyhemoglobin Sodium Potassium Chloride Carbon Dioxide BUN Creatinine Glucose POC Glucose 109 H 109 H Lactic Acid Calcium Phosphorus Magnesium Ferritin Direct Bilirubin AST ALT Alkaline Phosphatase Lactate Dehydrogenase Total Creatine Kinase C-Reactive Protein Total Protein Albumin Triglycerides Arterial Blood Glucose 113 H Arterial Blood Ionized Calcium 4.4 L Urine Creatinine Urine Chloride Vancomycin Trough Coronavirus (PCR) Crossmatch 07/14/20 07/14/20 07/14/20 16:44 16:44 20:20 WBC 30.1 H RBC 2.60 L Hgb 7.4 L 5.6 L* Hct 23.0 L 18.1 L* MCHC RDW 18.0 H Plt Count Lymph % (Auto) [place] % (Auto) Lymph # (Auto) [place] # (Auto) Eos # (Auto) Baso # (Auto) Seg Neutrophils % Seg Neuts % (Manual) 78.0 H Lymphocytes % (Manual) 5.0 L Monocytes % (Manual) Basophils % (Manual) Nucleated RBC % Seg Neutrophils # Seg Neutrophils # Man 23.5 H Lymphocytes # (Manual) Monocytes # (Manual) 0.9 H Eosinophils # (Manual) Basophils # (Manual) PT 15.6 H INR 1.26 H APTT D-Dimer Heparin Anti-Xa Level ABG pH POC ABG pCO2 POC ABG pO2 ABG pO2 ABG HCO3 ABG O2 Saturation ABG Base Excess ABG Hemoglobin ABG Oxyhemoglobin ABG Sodium ABG Potassium ABG Chloride ABG Glucose Oxyhemoglobin Carboxyhemoglobin Sodium Potassium Chloride Carbon Dioxide BUN Creatinine Glucose POC Glucose Lactic Acid Calcium Phosphorus Magnesium Ferritin Direct Bilirubin AST ALT Alkaline Phosphatase Lactate Dehydrogenase Total Creatine Kinase C-Reactive Protein Total Protein Albumin Triglycerides Arterial Blood Glucose Arterial Blood Ionized Calcium Urine Creatinine Urine Chloride Vancomycin Trough Coronavirus (PCR) Crossmatch 07/14/20 07/14/20 07/15/20 21:19 23:45 04:13 WBC RBC Hgb Hct MCHC RDW Plt Count Lymph % (Auto) [place] % (Auto) Lymph # (Auto) [place] # (Auto) Eos # (Auto) Baso # (Auto) Seg Neutrophils % Seg Neuts % (Manual) Lymphocytes % (Manual) Monocytes % (Manual) Basophils % (Manual) Nucleated RBC % Seg Neutrophils # Seg Neutrophils # Man Lymphocytes # (Manual) Monocytes # (Manual) Eosinophils # (Manual) Basophils # (Manual) PT INR APTT D-Dimer Heparin Anti-Xa Level ABG pH POC ABG pCO2 POC ABG pO2 ABG pO2 ABG HCO3 ABG O2 Saturation ABG Base Excess ABG Hemoglobin 5.8 L 6.0 L ABG Oxyhemoglobin 93.8 L ABG Sodium 132.2 L 130.3 L ABG Potassium 5.5 H 5.8 H ABG Chloride ABG Glucose 118 H 122 H Oxyhemoglobin Carboxyhemoglobin Sodium Potassium Chloride Carbon Dioxide BUN Creatinine Glucose POC Glucose 126 H Lactic Acid Calcium Phosphorus Magnesium Ferritin Direct Bilirubin AST ALT Alkaline Phosphatase Lactate Dehydrogenase Total Creatine Kinase C-Reactive Protein Total Protein Albumin Triglycerides Arterial Blood Glucose 118 H 122 H Arterial Blood Ionized Calcium 4.3 L 4.2 L Urine Creatinine Urine Chloride Vancomycin Trough Coronavirus (PCR) Crossmatch 07/15/20 07/15/20 07/15/20 08:21 08:21 08:38 WBC 45.5 H* RBC 2.42 L Hgb 7.1 L Hct 21.5 L MCHC RDW 16.5 H Plt Count Lymph % (Auto) [place] % (Auto) Lymph # (Auto) [place] # (Auto) Eos # (Auto) Baso # (Auto) Seg Neutrophils % Seg Neuts % (Manual) 89.0 H Lymphocytes % (Manual) 7.0 L Monocytes % (Manual) Basophils % (Manual) Nucleated RBC % Seg Neutrophils # Seg Neutrophils # Man 40.5 H Lymphocytes # (Manual) Monocytes # (Manual) 1.8 H Eosinophils # (Manual) Basophils # (Manual) PT 17.6 H INR 1.46 H APTT D-Dimer Heparin Anti-Xa Level ABG pH POC ABG pCO2 POC ABG pO2 ABG pO2 ABG HCO3 ABG O2 Saturation ABG Base Excess ABG Hemoglobin ABG Oxyhemoglobin ABG Sodium ABG Potassium ABG Chloride ABG Glucose Oxyhemoglobin Carboxyhemoglobin Sodium 131 L Potassium 6.0 H Chloride 94.6 L Carbon Dioxide 20 L BUN 116 H Creatinine 4.6 H Glucose 123 H POC Glucose Lactic Acid Calcium 7.6 L Phosphorus Magnesium Ferritin Direct Bilirubin AST ALT Alkaline Phosphatase Lactate Dehydrogenase Total Creatine Kinase C-Reactive Protein Total Protein Albumin Triglycerides Arterial Blood Glucose Arterial Blood Ionized Calcium Urine Creatinine Urine Chloride Vancomycin Trough Coronavirus (PCR) Crossmatch 07/15/20 07/15/20 07/15/20 11:29 17:23 18:52 WBC RBC Hgb Hct MCHC RDW Plt Count Lymph % (Auto) [place] % (Auto) Lymph # (Auto) [place] # (Auto) Eos # (Auto) Baso # (Auto) Seg Neutrophils % Seg Neuts % (Manual) Lymphocytes % (Manual) Monocytes % (Manual) Basophils % (Manual) Nucleated RBC % Seg Neutrophils # Seg Neutrophils # Man Lymphocytes # (Manual) Monocytes # (Manual) Eosinophils # (Manual) Basophils # (Manual) PT INR APTT D-Dimer Heparin Anti-Xa Level ABG pH POC ABG pCO2 POC ABG pO2 ABG pO2 ABG HCO3 ABG O2 Saturation ABG Base Excess ABG Hemoglobin ABG Oxyhemoglobin ABG Sodium ABG Potassium ABG Chloride ABG Glucose Oxyhemoglobin Carboxyhemoglobin Sodium Potassium Chloride 97.9 L Carbon Dioxide BUN 78 H Creatinine 3.1 H Glucose 114 H POC Glucose 181 H 120 H Lactic Acid Calcium 7.3 L Phosphorus Magnesium Ferritin Direct Bilirubin AST ALT Alkaline Phosphatase Lactate Dehydrogenase Total Creatine Kinase C-Reactive Protein Total Protein Albumin Triglycerides Arterial Blood Glucose Arterial Blood Ionized Calcium Urine Creatinine Urine Chloride Vancomycin Trough Coronavirus (PCR) Crossmatch 07/15/20 07/16/20 07/16/20 18:52 01:10 03:38 WBC RBC Hgb 9.9 L 8.5 L Hct 29.8 L D 24.7 L MCHC RDW Plt Count Lymph % (Auto) [place] % (Auto) Lymph # (Auto) [place] # (Auto) Eos # (Auto) Baso # (Auto) Seg Neutrophils % Seg Neuts % (Manual) Lymphocytes % (Manual) Monocytes % (Manual) Basophils % (Manual) Nucleated RBC % Seg Neutrophils # Seg Neutrophils # Man Lymphocytes # (Manual) Monocytes # (Manual) Eosinophils # (Manual) Basophils # (Manual) PT INR APTT D-Dimer Heparin Anti-Xa Level ABG pH 7.314 L POC ABG pCO2 48.5 H POC ABG pO2 58.9 L ABG pO2 ABG HCO3 ABG O2 Saturation ABG Base Excess ABG Hemoglobin 8.7 L ABG Oxyhemoglobin 86.7 L ABG Sodium 132.7 L ABG Potassium 5.2 H ABG Chloride ABG Glucose 99 H Oxyhemoglobin Carboxyhemoglobin Sodium Potassium Chloride Carbon Dioxide BUN Creatinine Glucose POC Glucose Lactic Acid Calcium Phosphorus Magnesium Ferritin Direct Bilirubin AST ALT Alkaline Phosphatase Lactate Dehydrogenase Total Creatine Kinase C-Reactive Protein Total Protein Albumin Triglycerides Arterial Blood Glucose 99 H Arterial Blood Ionized Calcium 3.9 L Urine Creatinine Urine Chloride Vancomycin Trough Coronavirus (PCR) Crossmatch 07/16/20 07/16/20 07/16/20 04:28 04:28 07:29 WBC 48.9 H* RBC 2.86 L Hgb 8.6 L 7.9 L Hct 25.4 L 24.4 L MCHC RDW 15.6 H Plt Count Lymph % (Auto) [place] % (Auto) Lymph # (Auto) [place] # (Auto) Eos # (Auto) Baso # (Auto) Seg Neutrophils % Seg Neuts % (Manual) Lymphocytes % (Manual) Monocytes % (Manual) Basophils % (Manual) Nucleated RBC % Seg Neutrophils # Seg Neutrophils # Man Lymphocytes # (Manual) Monocytes # (Manual) Eosinophils # (Manual) Basophils # (Manual) PT INR APTT D-Dimer Heparin Anti-Xa Level ABG pH POC ABG pCO2 POC ABG pO2 ABG pO2 ABG HCO3 ABG O2 Saturation ABG Base Excess ABG Hemoglobin ABG Oxyhemoglobin ABG Sodium ABG Potassium ABG Chloride ABG Glucose Oxyhemoglobin Carboxyhemoglobin Sodium 136 L Potassium 5.4 H Chloride 95.0 L Carbon Dioxide BUN 85 H Creatinine 3.4 H Glucose 66 L POC Glucose Lactic Acid Calcium 6.8 L Phosphorus Magnesium Ferritin Direct Bilirubin AST ALT Alkaline Phosphatase Lactate Dehydrogenase Total Creatine Kinase C-Reactive Protein Total Protein Albumin Triglycerides Arterial Blood Glucose Arterial Blood Ionized Calcium Urine Creatinine Urine Chloride Vancomycin Trough Coronavirus (PCR) Crossmatch 07/16/20 07/16/20 07/16/20 11:52 18:06 18:08 WBC RBC Hgb 7.4 L Hct 22.5 L MCHC RDW Plt Count Lymph % (Auto) [place] % (Auto) Lymph # (Auto) [place] # (Auto) Eos # (Auto) Baso # (Auto) Seg Neutrophils % Seg Neuts % (Manual) Lymphocytes % (Manual) Monocytes % (Manual) Basophils % (Manual) Nucleated RBC % Seg Neutrophils # Seg Neutrophils # Man Lymphocytes # (Manual) Monocytes # (Manual) Eosinophils # (Manual) Basophils # (Manual) PT INR APTT D-Dimer Heparin Anti-Xa Level ABG pH POC ABG pCO2 POC ABG pO2 ABG pO2 ABG HCO3 ABG O2 Saturation ABG Base Excess ABG Hemoglobin ABG Oxyhemoglobin ABG Sodium ABG Potassium ABG Chloride ABG Glucose Oxyhemoglobin Carboxyhemoglobin Sodium Potassium Chloride Carbon Dioxide BUN Creatinine Glucose POC Glucose 124 H 108 H Lactic Acid Calcium Phosphorus Magnesium Ferritin Direct Bilirubin AST ALT Alkaline Phosphatase Lactate Dehydrogenase Total Creatine Kinase C-Reactive Protein Total Protein Albumin Triglycerides Arterial Blood Glucose Arterial Blood Ionized Calcium Urine Creatinine Urine Chloride Vancomycin Trough Coronavirus (PCR) Crossmatch 07/17/20 07/17/20 07/17/20 03:27 15:25 15:25 WBC 46.2 H* RBC 2.05 L Hgb 6.1 L Hct 18.4 L* MCHC RDW 15.6 H Plt Count Lymph % (Auto) [place] % (Auto) Lymph # (Auto) [place] # (Auto) Eos # (Auto) Baso # (Auto) Seg Neutrophils % Seg Neuts % (Manual) 87.0 H Lymphocytes % (Manual) 3.0 L Monocytes % (Manual) Basophils % (Manual) Nucleated RBC % Seg Neutrophils # Seg Neutrophils # Man 40.2 H Lymphocytes # (Manual) Monocytes # (Manual) 3.2 H Eosinophils # (Manual) Basophils # (Manual) PT 18.2 H INR 1.52 H APTT D-Dimer Heparin Anti-Xa Level ABG pH 7.313 L POC ABG pCO2 50.9 H POC ABG pO2 ABG pO2 ABG HCO3 ABG O2 Saturation ABG Base Excess ABG Hemoglobin 7.5 L ABG Oxyhemoglobin ABG Sodium 131.8 L ABG Potassium 4.6 H ABG Chloride ABG Glucose 105 H Oxyhemoglobin Carboxyhemoglobin Sodium Potassium Chloride Carbon Dioxide BUN Creatinine Glucose POC Glucose Lactic Acid Calcium Phosphorus Magnesium Ferritin Direct Bilirubin AST ALT Alkaline Phosphatase Lactate Dehydrogenase Total Creatine Kinase C-Reactive Protein Total Protein Albumin Triglycerides Arterial Blood Glucose 105 H Arterial Blood Ionized Calcium 3.9 L Urine Creatinine Urine Chloride Vancomycin Trough Coronavirus (PCR) Crossmatch 07/17/20 07/18/20 07/18/20 Unknown 03:10 05:06 WBC 37.9 H RBC 2.91 L Hgb 8.5 L Hct 25.6 L D MCHC RDW Plt Count Lymph % (Auto) [place] % (Auto) Lymph # (Auto) [place] # (Auto) Eos # (Auto) Baso # (Auto) Seg Neutrophils % Seg Neuts % (Manual) Lymphocytes % (Manual) Monocytes % (Manual) Basophils % (Manual) Nucleated RBC % Seg Neutrophils # Seg Neutrophils # Man Lymphocytes # (Manual) Monocytes # (Manual) Eosinophils # (Manual) Basophils # (Manual) PT INR APTT D-Dimer Heparin Anti-Xa Level ABG pH POC ABG pCO2 POC ABG pO2 114.9 H ABG pO2 ABG HCO3 ABG O2 Saturation ABG Base Excess ABG Hemoglobin 8.6 L ABG Oxyhemoglobin ABG Sodium 130.6 L ABG Potassium 4.9 H ABG Chloride ABG Glucose Oxyhemoglobin Carboxyhemoglobin Sodium Potassium Chloride Carbon Dioxide BUN Creatinine Glucose POC Glucose Lactic Acid Calcium Phosphorus Magnesium Ferritin Direct Bilirubin AST ALT Alkaline Phosphatase Lactate Dehydrogenase Total Creatine Kinase C-Reactive Protein Total Protein Albumin Triglycerides Arterial Blood Glucose Arterial Blood Ionized Calcium 3.8 L Urine Creatinine Urine Chloride Vancomycin Trough Coronavirus (PCR) Crossmatch See Detail 07/18/20 07/19/20 07/19/20 05:06 00:06 03:57 WBC RBC Hgb Hct MCHC RDW Plt Count Lymph % (Auto) [place] % (Auto) Lymph # (Auto) [place] # (Auto) Eos # (Auto) Baso # (Auto) Seg Neutrophils % Seg Neuts % (Manual) Lymphocytes % (Manual) Monocytes % (Manual) Basophils % (Manual) Nucleated RBC % Seg Neutrophils # Seg Neutrophils # Man Lymphocytes # (Manual) Monocytes # (Manual) Eosinophils # (Manual) Basophils # (Manual) PT INR APTT D-Dimer Heparin Anti-Xa Level ABG pH POC ABG pCO2 POC ABG pO2 ABG pO2 ABG HCO3 ABG O2 Saturation ABG Base Excess ABG Hemoglobin 8.6 L ABG Oxyhemoglobin ABG Sodium 130.4 L ABG Potassium ABG Chloride ABG Glucose Oxyhemoglobin Carboxyhemoglobin Sodium Potassium 5.4 H Chloride Carbon Dioxide BUN 79 H Creatinine 3.2 H Glucose POC Glucose 69 L Lactic Acid Calcium 6.9 L Phosphorus Magnesium Ferritin Direct Bilirubin AST ALT 58 H Alkaline Phosphatase Lactate Dehydrogenase Total Creatine Kinase C-Reactive Protein Total Protein 4.3 L D Albumin 1.7 L Triglycerides 306 H Arterial Blood Glucose Arterial Blood Ionized Calcium 3.9 L Urine Creatinine Urine Chloride Vancomycin Trough Coronavirus (PCR) Crossmatch 07/19/20 07/19/20 07/19/20 05:22 09:15 09:15 WBC 32.5 H RBC 2.57 L Hgb 7.8 L Hct 22.8 L MCHC RDW 15.3 H Plt Count Lymph % (Auto) [place] % (Auto) Lymph # (Auto) [place] # (Auto) Eos # (Auto) Baso # (Auto) Seg Neutrophils % Seg Neuts % (Manual) Lymphocytes % (Manual) Monocytes % (Manual) Basophils % (Manual) Nucleated RBC % Seg Neutrophils # Seg Neutrophils # Man Lymphocytes # (Manual) Monocytes # (Manual) Eosinophils # (Manual) Basophils # (Manual) PT INR APTT D-Dimer Heparin Anti-Xa Level ABG pH POC ABG pCO2 POC ABG pO2 ABG pO2 ABG HCO3 ABG O2 Saturation ABG Base Excess ABG Hemoglobin ABG Oxyhemoglobin ABG Sodium ABG Potassium ABG Chloride ABG Glucose Oxyhemoglobin Carboxyhemoglobin Sodium 135 L Potassium Chloride 96.3 L Carbon Dioxide BUN 61 H Creatinine 2.8 H Glucose POC Glucose 64 L Lactic Acid Calcium 6.8 L Phosphorus Magnesium Ferritin Direct Bilirubin AST 54 H ALT 65 H Alkaline Phosphatase Lactate Dehydrogenase Total Creatine Kinase C-Reactive Protein Total Protein 4.3 L Albumin 1.8 L Triglycerides Arterial Blood Glucose Arterial Blood Ionized Calcium Urine Creatinine Urine Chloride Vancomycin Trough Coronavirus (PCR) Crossmatch 07/20/20 07/20/20 07/20/20 05:20 06:00 06:07 WBC 28.1 H RBC 2.53 L Hgb 7.7 L Hct 22.7 L MCHC RDW 15.5 H Plt Count Lymph % (Auto) [place] % (Auto) Lymph # (Auto) [place] # (Auto) Eos # (Auto) Baso # (Auto) Seg Neutrophils % Seg Neuts % (Manual) Lymphocytes % (Manual) Monocytes % (Manual) Basophils % (Manual) Nucleated RBC % Seg Neutrophils # Seg Neutrophils # Man Lymphocytes # (Manual) Monocytes # (Manual) Eosinophils # (Manual) Basophils # (Manual) PT INR APTT D-Dimer Heparin Anti-Xa Level ABG pH POC ABG pCO2 POC ABG pO2 ABG pO2 ABG HCO3 ABG O2 Saturation ABG Base Excess ABG Hemoglobin 6.3 L ABG Oxyhemoglobin ABG Sodium 130.0 L ABG Potassium ABG Chloride ABG Glucose 114 H Oxyhemoglobin Carboxyhemoglobin Sodium Potassium Chloride Carbon Dioxide BUN Creatinine Glucose POC Glucose 110 H Lactic Acid Calcium Phosphorus Magnesium Ferritin Direct Bilirubin AST ALT Alkaline Phosphatase Lactate Dehydrogenase Total Creatine Kinase C-Reactive Protein Total Protein Albumin Triglycerides Arterial Blood Glucose 114 H Arterial Blood Ionized Calcium 3.9 L Urine Creatinine Urine Chloride Vancomycin Trough Coronavirus (PCR) Crossmatch 07/20/20 07/21/20 07/21/20 17:19 05:02 05:40 WBC 32.9 H RBC 2.78 L Hgb 8.5 L Hct 25.2 L MCHC RDW 15.7 H Plt Count 74 L Lymph % (Auto) [place] % (Auto) Lymph # (Auto) [place] # (Auto) Eos # (Auto) Baso # (Auto) Seg Neutrophils % Seg Neuts % (Manual) Lymphocytes % (Manual) Monocytes % (Manual) Basophils % (Manual) Nucleated RBC % Seg Neutrophils # Seg Neutrophils # Man Lymphocytes # (Manual) Monocytes # (Manual) Eosinophils # (Manual) Basophils # (Manual) PT INR APTT D-Dimer Heparin Anti-Xa Level ABG pH POC ABG pCO2 POC ABG pO2 73.2 L ABG pO2 ABG HCO3 ABG O2 Saturation ABG Base Excess ABG Hemoglobin 9.1 L ABG Oxyhemoglobin 93.4 L ABG Sodium ABG Potassium 3.1 L ABG Chloride ABG Glucose 112 H Oxyhemoglobin Carboxyhemoglobin Sodium Potassium Chloride Carbon Dioxide BUN Creatinine Glucose POC Glucose 137 H Lactic Acid Calcium Phosphorus Magnesium Ferritin Direct Bilirubin AST ALT Alkaline Phosphatase Lactate Dehydrogenase Total Creatine Kinase C-Reactive Protein Total Protein Albumin Triglycerides Arterial Blood Glucose 112 H Arterial Blood Ionized Calcium Urine Creatinine Urine Chloride Vancomycin Trough Coronavirus (PCR) Crossmatch 07/22/20 07/22/20 07/22/20 04:11 16:00 16:00 WBC 38.7 H RBC 2.72 L Hgb 8.1 L Hct 24.5 L MCHC RDW 16.1 H Plt Count Lymph % (Auto) [place] % (Auto) Lymph # (Auto) [place] # (Auto) Eos # (Auto) Baso # (Auto) Seg Neutrophils % Seg Neuts % (Manual) Lymphocytes % (Manual) Monocytes % (Manual) Basophils % (Manual) Nucleated RBC % Seg Neutrophils # Seg Neutrophils # Man Lymphocytes # (Manual) Monocytes # (Manual) Eosinophils # (Manual) Basophils # (Manual) PT INR APTT D-Dimer Heparin Anti-Xa Level ABG pH POC ABG pCO2 POC ABG pO2 67.7 L ABG pO2 ABG HCO3 ABG O2 Saturation ABG Base Excess ABG Hemoglobin 7.4 L ABG Oxyhemoglobin 91.7 L ABG Sodium ABG Potassium 2.9 L ABG Chloride ABG Glucose 105 H Oxyhemoglobin Carboxyhemoglobin Sodium Potassium Chloride Carbon Dioxide BUN Creatinine Glucose POC Glucose Lactic Acid Calcium Phosphorus Magnesium Ferritin Direct Bilirubin AST ALT Alkaline Phosphatase Lactate Dehydrogenase Total Creatine Kinase C-Reactive Protein Total Protein Albumin Triglycerides 197 H Arterial Blood Glucose 105 H Arterial Blood Ionized Calcium Urine Creatinine Urine Chloride Vancomycin Trough Coronavirus (PCR) Crossmatch 07/23/20 07/23/20 07/23/20 04:56 11:49 Unknown WBC RBC Hgb Hct MCHC RDW Plt Count Lymph % (Auto) [place] % (Auto) Lymph # (Auto) [place] # (Auto) Eos # (Auto) Baso # (Auto) Seg Neutrophils % Seg Neuts % (Manual) Lymphocytes % (Manual) Monocytes % (Manual) Basophils % (Manual) Nucleated RBC % Seg Neutrophils # Seg Neutrophils # Man Lymphocytes # (Manual) Monocytes # (Manual) Eosinophils # (Manual) Basophils # (Manual) PT INR APTT D-Dimer Heparin Anti-Xa Level ABG pH POC ABG pCO2 POC ABG pO2 75.7 L ABG pO2 ABG HCO3 ABG O2 Saturation ABG Base Excess ABG Hemoglobin 9.3 L ABG Oxyhemoglobin ABG Sodium ABG Potassium 3.1 L ABG Chloride 108.0 H ABG Glucose 101 H Oxyhemoglobin Carboxyhemoglobin Sodium Potassium 3.1 L D Chloride Carbon Dioxide BUN 36 H Creatinine 2.1 H Glucose 103 H POC Glucose 107 H Lactic Acid Calcium Phosphorus Magnesium Ferritin Direct Bilirubin AST ALT Alkaline Phosphatase Lactate Dehydrogenase Total Creatine Kinase C-Reactive Protein Total Protein Albumin Triglycerides Arterial Blood Glucose 101 H Arterial Blood Ionized Calcium Urine Creatinine Urine Chloride Vancomycin Trough Coronavirus (PCR) Crossmatch 07/24/20 07/24/20 07/24/20 06:40 06:40 20:38 WBC 31.4 H RBC 2.37 L Hgb 7.2 L Hct 21.7 L MCHC RDW 17.0 H Plt Count Lymph % (Auto) [place] % (Auto) Lymph # (Auto) [place] # (Auto) Eos # (Auto) Baso # (Auto) Seg Neutrophils % Seg Neuts % (Manual) 85.0 H Lymphocytes % (Manual) 6.0 L Monocytes % (Manual) Basophils % (Manual) Nucleated RBC % Seg Neutrophils # Seg Neutrophils # Man 26.7 H Lymphocytes # (Manual) Monocytes # (Manual) 0.9 H Eosinophils # (Manual) Basophils # (Manual) 0.3 H PT INR APTT D-Dimer Heparin Anti-Xa Level ABG pH POC ABG pCO2 POC ABG pO2 ABG pO2 ABG HCO3 ABG O2 Saturation ABG Base Excess ABG Hemoglobin ABG Oxyhemoglobin ABG Sodium ABG Potassium ABG Chloride ABG Glucose Oxyhemoglobin Carboxyhemoglobin Sodium Potassium 3.1 L Chloride Carbon Dioxide BUN 46 H Creatinine 2.5 H Glucose 109 H POC Glucose Lactic Acid Calcium Phosphorus Magnesium Ferritin Direct Bilirubin AST 46 H ALT 74 H Alkaline Phosphatase 180 H Lactate Dehydrogenase Total Creatine Kinase C-Reactive Protein Total Protein 4.6 L Albumin 2.0 L Triglycerides Arterial Blood Glucose Arterial Blood Ionized Calcium Urine Creatinine Urine Chloride Vancomycin Trough Coronavirus (PCR) Crossmatch See Detail 07/24/20 07/25/20 07/25/20 20:40 05:39 05:39 WBC 26.6 H RBC 2.79 L Hgb 8.5 L Hct 25.6 L MCHC RDW 16.1 H Plt Count Lymph % (Auto) [place] % (Auto) Lymph # (Auto) [place] # (Auto) Eos # (Auto) Baso # (Auto) Seg Neutrophils % Seg Neuts % (Manual) 72.0 H Lymphocytes % (Manual) 2.0 L Monocytes % (Manual) Basophils % (Manual) 3.0 H Nucleated RBC % 1.0 H Seg Neutrophils # Seg Neutrophils # Man 19.2 H Lymphocytes # (Manual) 0.5 L Monocytes # (Manual) 1.6 H Eosinophils # (Manual) 0.5 H Basophils # (Manual) 0.8 H PT 15.3 H INR 1.21 H APTT D-Dimer Heparin Anti-Xa Level ABG pH POC ABG pCO2 POC ABG pO2 ABG pO2 ABG HCO3 ABG O2 Saturation ABG Base Excess ABG Hemoglobin ABG Oxyhemoglobin ABG Sodium ABG Potassium ABG Chloride ABG Glucose Oxyhemoglobin Carboxyhemoglobin Sodium Potassium Chloride Carbon Dioxide BUN 55 H Creatinine 2.9 H Glucose POC Glucose Lactic Acid Calcium Phosphorus Magnesium Ferritin Direct Bilirubin AST ALT Alkaline Phosphatase Lactate Dehydrogenase Total Creatine Kinase C-Reactive Protein Total Protein Albumin Triglycerides Arterial Blood Glucose Arterial Blood Ionized Calcium Urine Creatinine Urine Chloride Vancomycin Trough Coronavirus (PCR) Crossmatch 07/25/20 07/26/20 07/26/20 17:22 08:46 08:46 WBC RBC Hgb Hct MCHC RDW Plt Count Lymph % (Auto) [place] % (Auto) Lymph # (Auto) [place] # (Auto) Eos # (Auto) Baso # (Auto) Seg Neutrophils % Seg Neuts % (Manual) Lymphocytes % (Manual) Monocytes % (Manual) Basophils % (Manual) Nucleated RBC % Seg Neutrophils # Seg Neutrophils # Man Lymphocytes # (Manual) Monocytes # (Manual) Eosinophils # (Manual) Basophils # (Manual) PT INR APTT D-Dimer Heparin Anti-Xa Level ABG pH POC ABG pCO2 POC ABG pO2 ABG pO2 ABG HCO3 ABG O2 Saturation ABG Base Excess ABG Hemoglobin ABG Oxyhemoglobin ABG Sodium ABG Potassium ABG Chloride ABG Glucose Oxyhemoglobin Carboxyhemoglobin Sodium Potassium Chloride Carbon Dioxide 31 H BUN 37 H Creatinine 2.2 H Glucose POC Glucose 65 L Lactic Acid Calcium 8.2 L Phosphorus Magnesium Ferritin Direct Bilirubin AST ALT Alkaline Phosphatase Lactate Dehydrogenase Total Creatine Kinase C-Reactive Protein Total Protein Albumin Triglycerides 166 H Arterial Blood Glucose Arterial Blood Ionized Calcium Urine Creatinine Urine Chloride Vancomycin Trough Coronavirus (PCR) Crossmatch 07/26/20 07/27/20 07/27/20 Unknown 04:00 07:09 WBC 24.6 H 27.1 H RBC 2.68 L 2.74 L Hgb 8.3 L 8.3 L Hct 24.7 L 25.3 L MCHC RDW 16.3 H 17.2 H Plt Count Lymph % (Auto) [place] % (Auto) Lymph # (Auto) [place] # (Auto) Eos # (Auto) Baso # (Auto) Seg Neutrophils % Seg Neuts % (Manual) 82.0 H 85.0 H Lymphocytes % (Manual) 5.0 L 4.0 L Monocytes % (Manual) 8.0 H Basophils % (Manual) Nucleated RBC % Seg Neutrophils # Seg Neutrophils # Man 20.2 H 23.0 H Lymphocytes # (Manual) 1.1 L Monocytes # (Manual) 2.0 H 1.6 H Eosinophils # (Manual) 0.7 H 1.1 H Basophils # (Manual) 0.3 H PT INR APTT D-Dimer Heparin Anti-Xa Level ABG pH POC ABG pCO2 POC ABG pO2 ABG pO2 ABG HCO3 ABG O2 Saturation ABG Base Excess ABG Hemoglobin ABG Oxyhemoglobin ABG Sodium ABG Potassium ABG Chloride ABG Glucose Oxyhemoglobin Carboxyhemoglobin Sodium Potassium Chloride Carbon Dioxide BUN Creatinine Glucose POC Glucose 115 H Lactic Acid Calcium Phosphorus Magnesium Ferritin Direct Bilirubin AST ALT Alkaline Phosphatase Lactate Dehydrogenase Total Creatine Kinase C-Reactive Protein Total Protein Albumin Triglycerides Arterial Blood Glucose Arterial Blood Ionized Calcium Urine Creatinine Urine Chloride Vancomycin Trough Coronavirus (PCR) Crossmatch 07/27/20 07/27/20 07/28/20 21:45 22:36 00:05 WBC RBC Hgb 6.4 L Hct 19.8 L* MCHC RDW Plt Count Lymph % (Auto) [place] % (Auto) Lymph # (Auto) [place] # (Auto) Eos # (Auto) Baso # (Auto) Seg Neutrophils % Seg Neuts % (Manual) Lymphocytes % (Manual) Monocytes % (Manual) Basophils % (Manual) Nucleated RBC % Seg Neutrophils # Seg Neutrophils # Man Lymphocytes # (Manual) Monocytes # (Manual) Eosinophils # (Manual) Basophils # (Manual) PT INR APTT D-Dimer Heparin Anti-Xa Level ABG pH POC ABG pCO2 POC ABG pO2 ABG pO2 ABG HCO3 ABG O2 Saturation ABG Base Excess ABG Hemoglobin ABG Oxyhemoglobin ABG Sodium ABG Potassium ABG Chloride ABG Glucose Oxyhemoglobin Carboxyhemoglobin Sodium Potassium Chloride Carbon Dioxide BUN Creatinine Glucose POC Glucose 124 H Lactic Acid Calcium Phosphorus Magnesium Ferritin Direct Bilirubin AST ALT Alkaline Phosphatase Lactate Dehydrogenase Total Creatine Kinase C-Reactive Protein Total Protein Albumin Triglycerides Arterial Blood Glucose Arterial Blood Ionized Calcium Urine Creatinine Urine Chloride Vancomycin Trough Coronavirus (PCR) Crossmatch See Detail 07/28/20 07/28/20 07/28/20 04:00 06:27 12:24 WBC 30.3 H RBC 2.35 L Hgb 7.2 L Hct 21.2 L MCHC RDW 16.8 H Plt Count Lymph % (Auto) [place] % (Auto) Lymph # (Auto) [place] # (Auto) Eos # (Auto) Baso # (Auto) Seg Neutrophils % Seg Neuts % (Manual) Lymphocytes % (Manual) Monocytes % (Manual) Basophils % (Manual) Nucleated RBC % Seg Neutrophils # Seg Neutrophils # Man Lymphocytes # (Manual) Monocytes # (Manual) Eosinophils # (Manual) Basophils # (Manual) PT INR APTT D-Dimer Heparin Anti-Xa Level ABG pH POC ABG pCO2 POC ABG pO2 ABG pO2 ABG HCO3 ABG O2 Saturation ABG Base Excess ABG Hemoglobin ABG Oxyhemoglobin ABG Sodium ABG Potassium ABG Chloride ABG Glucose Oxyhemoglobin Carboxyhemoglobin Sodium Potassium Chloride Carbon Dioxide BUN Creatinine Glucose POC Glucose 107 H 110 H Lactic Acid Calcium Phosphorus Magnesium Ferritin Direct Bilirubin AST ALT Alkaline Phosphatase Lactate Dehydrogenase Total Creatine Kinase C-Reactive Protein Total Protein Albumin Triglycerides Arterial Blood Glucose Arterial Blood Ionized Calcium Urine Creatinine Urine Chloride Vancomycin Trough Coronavirus (PCR) Crossmatch 07/28/20 07/28/2007/28/21 14:31 18:19 23:33 WBC RBC Hgb Hct MCHC RDW Plt Count Lymph % (Auto) [place] % (Auto) Lymph # (Auto) [place] # (Auto) Eos # (Auto) Baso # (Auto) Seg Neutrophils % Seg Neuts % (Manual) Lymphocytes % (Manual) Monocytes % (Manual) Basophils % (Manual) Nucleated RBC % Seg Neutrophils # Seg Neutrophils # Man Lymphocytes # (Manual) Monocytes # (Manual) Eosinophils # (Manual) Basophils # (Manual) PT INR APTT D-Dimer Heparin Anti-Xa Level ABG pH 7.333 L POC ABG pCO2 POC ABG pO2 ABG pO2 68.0 L ABG HCO3 ABG O2 Saturation 92.4 L ABG Base Excess -2.7 L ABG Hemoglobin 9.0 L ABG Oxyhemoglobin ABG Sodium ABG Potassium ABG Chloride ABG Glucose Oxyhemoglobin 89.9 L Carboxyhemoglobin Sodium Potassium Chloride Carbon Dioxide BUN Creatinine Glucose POC Glucose 117 H 113 H Lactic Acid Calcium Phosphorus Magnesium Ferritin Direct Bilirubin AST ALT Alkaline Phosphatase Lactate Dehydrogenase Total Creatine Kinase C-Reactive Protein Total Protein Albumin Triglycerides Arterial Blood Glucose Arterial Blood Ionized Calcium Urine Creatinine Urine Chloride Vancomycin Trough Coronavirus (PCR) Crossmatch 07/28/20 07/29/20 07/29/20 Unknown 04:39 04:39 WBC 38.6 H RBC 2.15 L Hgb 6.6 L Hct 19.9 L* MCHC RDW 17.5 H Plt Count Lymph % (Auto) 3.2 L [place] % (Auto) Lymph # (Auto) [place] # (Auto) 2.7 H Eos # (Auto) 0.8 H Baso # (Auto) 0.4 H Seg Neutrophils % 86.5 H Seg Neuts % (Manual) Lymphocytes % (Manual) Monocytes % (Manual) Basophils % (Manual) Nucleated RBC % Seg Neutrophils # 33.4 H Seg Neutrophils # Man Lymphocytes # (Manual) Monocytes # (Manual) Eosinophils # (Manual) Basophils # (Manual) PT INR APTT D-Dimer Heparin Anti-Xa Level ABG pH POC ABG pCO2 POC ABG pO2 ABG pO2 ABG HCO3 ABG O2 Saturation ABG Base Excess ABG Hemoglobin ABG Oxyhemoglobin ABG Sodium ABG Potassium ABG Chloride ABG Glucose Oxyhemoglobin Carboxyhemoglobin Sodium 135 L Potassium 3.2 L 3.1 L Chloride Carbon Dioxide BUN 35 H 42 H Creatinine 2.3 H 2.5 H Glucose 123 H 109 H POC Glucose Lactic Acid Calcium 7.2 L 7.5 L Phosphorus Magnesium Ferritin Direct Bilirubin AST ALT Alkaline Phosphatase Lactate Dehydrogenase Total Creatine Kinase C-Reactive Protein Total Protein Albumin Triglycerides Arterial Blood Glucose Arterial Blood Ionized Calcium Urine Creatinine Urine Chloride Vancomycin Trough Coronavirus (PCR) Crossmatch 07/29/20 07/29/20 07/29/20 05:36 11:51 17:42 WBC RBC Hgb Hct MCHC RDW Plt Count Lymph % (Auto) [place] % (Auto) Lymph # (Auto) [place] # (Auto) Eos # (Auto) Baso # (Auto) Seg Neutrophils % Seg Neuts % (Manual) Lymphocytes % (Manual) Monocytes % (Manual) Basophils % (Manual) Nucleated RBC % Seg Neutrophils # Seg Neutrophils # Man Lymphocytes # (Manual) Monocytes # (Manual) Eosinophils # (Manual) Basophils # (Manual) PT INR APTT D-Dimer Heparin Anti-Xa Level ABG pH POC ABG pCO2 POC ABG pO2 ABG pO2 ABG HCO3 ABG O2 Saturation ABG Base Excess ABG Hemoglobin ABG Oxyhemoglobin ABG Sodium ABG Potassium ABG Chloride ABG Glucose Oxyhemoglobin Carboxyhemoglobin Sodium Potassium Chloride Carbon Dioxide BUN Creatinine Glucose POC Glucose 111 H 127 H 117 H Lactic Acid Calcium Phosphorus Magnesium Ferritin Direct Bilirubin AST ALT Alkaline Phosphatase Lactate Dehydrogenase Total Creatine Kinase C-Reactive Protein Total Protein Albumin Triglycerides Arterial Blood Glucose Arterial Blood Ionized Calcium Urine Creatinine Urine Chloride Vancomycin Trough Coronavirus (PCR) Crossmatch 07/29/20 07/30/20 23:07 Unknown WBC RBC Hgb Hct MCHC RDW Plt Count Lymph % (Auto) [place] % (Auto) Lymph # (Auto) [place] # (Auto) Eos # (Auto) Baso # (Auto) Seg Neutrophils % Seg Neuts % (Manual) Lymphocytes % (Manual) Monocytes % (Manual) Basophils % (Manual) Nucleated RBC % Seg Neutrophils # Seg Neutrophils # Man Lymphocytes # (Manual) Monocytes # (Manual) Eosinophils # (Manual) Basophils # (Manual) PT INR APTT D-Dimer Heparin Anti-Xa Level ABG pH POC ABG pCO2 POC ABG pO2 ABG pO2 ABG HCO3 ABG O2 Saturation ABG Base Excess ABG Hemoglobin ABG Oxyhemoglobin ABG Sodium ABG Potassium ABG Chloride ABG Glucose Oxyhemoglobin Carboxyhemoglobin Sodium Potassium Chloride Carbon Dioxide BUN Creatinine Glucose POC Glucose 116 H Lactic Acid Calcium Phosphorus Magnesium Ferritin Direct Bilirubin AST ALT Alkaline Phosphatase Lactate Dehydrogenase Total Creatine Kinase C-Reactive Protein Total Protein Albumin Triglycerides 184 H Arterial Blood Glucose Arterial Blood Ionized Calcium Urine Creatinine Urine Chloride Vancomycin Trough Coronavirus (PCR) Crossmatch Allied health notes reviewed: nursing
[2020-07-30] MEDS ORDERED: SODIUM CHLORIDE 0.9% 500 ML 500 ML IV ONE (23:33)
[2020-07-31] MEDS: INSULIN REGULAR, HUMAN 100 UNITS/1 ML SUB-Q SCH ×4 (00:47→17:32)
[2020-07-31] MEDS: ACETAMINOPHEN 325 MG TAB PO PRN (02:45)
[2020-07-31] MEDS: fentaNYL DRIP Premix 2,000 MCG/100 ML BAG IV SCH ×6 (03:47→23:40)
[2020-07-31] MEDS ORDERED: SODIUM CHLORIDE 0.9% 1000 ML 1,000 ML ONE (04:00)
[2020-07-31] MEDS: NORepinephrine/NS 4 MG-250 ML 4 MG/250 ML BAG IV SCH ×3 (05:30→22:20)
[2020-07-31] MEDS: ZINC SULFATE 220 MG CAP PO SCH ×2 (09:56→21:50)
[2020-07-31] MEDS: POLYETHYLENE GLYCOL 3350 17 GM POWDER PO SCH (09:56)
[2020-07-31] MEDS: DOCUSATE SODIUM 100 MG/10 ML ORAL LIQD FEEDTUBE SCH ×2 (09:56→21:47)
[2020-07-31] MEDS: PANTOPRAZOLE 40 MG INJ IV SCH ×2 (09:56→21:52)
[2020-07-31] MEDS: ASCORBIC ACID 250 MG TAB PO SCH ×2 (09:56→21:47)
[2020-07-31] MEDS: CHOLECALCIFEROL (VIT D3) 1000 UNIT (25 mcg) TAB PO SCH (09:56)
[2020-07-31] MEDS: QUEtiapine 200 MG TAB PO SCH ×2 (09:56→21:48)
[2020-07-31] MEDS: AMIODARONE 200 MG TAB PO SCH ×2 (09:59→21:48)
[2020-07-31] MEDS: SODIUM HYPOCHLORITE, DAKIN'S 1/2 STRENGTH (0.25%) 473 ML TOPICAL SOLN TP SCH (10:09)
[2020-07-31 10:18] LABS: Hematocrit 21.9 % (35.5-45.6); Hemoglobin 7.3 gm/dl (11.8-15.2); Mean Corpuscular HGB Conc 33 % (32-34); Mean Corpuscular Volume 92 fl (84-94); Platelet Count 220 K/mm3 (140-440); Red Blood Count 2.39 M/mm3 (3.65-5.03); Red Cell Distribution Width 16.7 % (13.2-15.2)
[2020-07-31 10:35] LABS: Calcium 7.7 mg/dL (8.4-10.2)
--- NOTE | 2020-07-31 11:06 | Progress Note ---
Assessment and Plan Assessment and plan: 59-year-old white male who was admitted for pneumonia secondary to Covid with associated respiratory failure and sepsis. Severe septic shock COVID-19 pneumonia Sacral wound, stage 4 Leukocytosis Acute metabolic encephalopathy Acute hypoxic respiratory failure Enterococcus bacteremia Pneumomediastinum Acute kidney injury likely secondary to acute tubular necrosis which progressed to hemodialysis SVT/proximal atrial fibrillation Elevated LFTs Anemia likely due to severe sepsis had declining renal function Morbid obesity Leukocytosis Hypoalbuminemia 06/18: Patient got intubated overnight. Patient was placed on BiPAP to maintain oxygenation with 100% FiO2 but apparently he found to take off his argueta which made his oxygen saturation go down at 60s/50s and patient was found altered mental status. Code met was called immediately. Patient was transferred to ICU and intubated, patient currently on 2 pressors, intubated with 100% FiO2, renal function noted to be decline, nephrology consulted. Discussed with [facility] physician Dr. Thompson and requested call back on Saturday. Poor prognosis, continue to monitor with aggressive supportive care. Also called family/ to update clinical status. 06/19: Repeat COVID test was positive. cont cefepime, remdesivir per ID recom mendation. follow inflammatory markers, cbc, bmp. placed on heparin drip for atrial fib 06/20: Remains on mechanical ventilation, on 2 pressors, on heparin drip. discussed with and daughter by phone. Renal function declining. cont supportive care for now. 06/21: Renal function cont to decline, urine outpt sig decreased. started on lasix 80mg BID, plan to follow urine output, if no improvement patient need to start on HD. called and daughter today. updated all clinical details 06/22: Renal function continues to decline with uremia and hyperkalemia. Will need to proceed with hemodialysis. Nephrology discussed with the family and they agrees for the hemodialysis. Patient remains on pressor support and mechanical ventilation. Vas-Cath placed today by vascular started on hemodialysis today. 06/23: 2nd round of HD today, remains on 2 pressors. per RN not tolerating TF, has no record of BM since 06/18. start on stool softner. follow cbc/bmp. updated family ( and daughter) by phone -all question answered to best of my knowledge and to their satisfaction. Patient remains critically ill with a very poor prognosis. 06/24: Continue supportive care, Very poor prognosis, Firestopper Installer to discuss with family in am due to the futility of the condition. 06/25/2020 continue supportive care very poor prognosis 06/26/2020 continue supportive care very poor prognosis family updated 06/27/2020 continue supportive care and weaning if possible 06/28/2020 continue supportive care, talk with at length 06/29: Resumed care. K level persistently high. give one dose of bicarbonate, plan for HD today, recheck k after HD. updated family by phone 06/30: updated family by phone. Patient remains on amiodarone drip and vasopressin. Getting HD at the bedside. Tolerating tube feeding at low rate. 07/01: Hb dropped to 6.4 today, transfuse one unit PRBC. patient is off pressor today, remains on amioderone. cont to monitor 07/02: Called patient and updated clinical details. Patient remains critically ill, still intubated. Patient's oxygen requirement and PEEP pressure has went down. Continue weaning protocol per critical care recommendation. Patient remains off pressor. Continue to wean off from amiodarone and plan to rate control with p.o. medications. Tolerating tube feeding. H&H stable today. Order for stool for occult blood. Monitor H&H and BMP. Continue to follow clinically 07/03: discussed with [facility] physician today. Patient back on 100percent Fio2 since last night. planned for emergent Hd today. spiked fever, start IV Cefepime + Vancomycin renally dosed. Restarted Levophed today, remains on amiodarone drip. Patient family was updated by critical care attending today. 07/04: Patient has hemodialysis yesterday and also plan for today for volume overload and pulmonary edema. Patient currently on 80% FiO2. Remains on Levophed and amiodarone. Hemoglobin dropped to 6.7 without any evidence of active bleeding. LFTs remain stable. Repeat Covid test on 06/30 and 07/03 remains positive. Will transfuse another unit of packed RBC today. Called family for update -explained family that patient is critically ill with very poor prognosis. 07/05: Patient on 70% FiO2 with PEEP of 14. h/h stable after transfusion. hyperkalemia improved, cont sodiumbicarbonate pill with TF. follow BMP. off levophed today, remains on amioderone. poor prognosis. 07/06: Patient remains on amiodarone drip, maintaining BP without any pressor. FiO2 requirement trended down to 60% with PEEP of 14. Continue to follow clinically. Plan to wean off amiodarone drip as tolerated. Wean off from sedation as tolerated. Updated family. Patient remains critically ill with poor prognosis. 07/07: Called family for update. Off amiodarone drip today, patient also off pressor. FiO2 requirement trended up again to 80-100%. Continue to provide supportive care, monitor clinically. Having difficulty to wean off from the vent support. Patient is persistently positive for COVID-19 and COVID-19 antibody is nonreactive. Patient remains critically ill with very poor prognosis. 07/08: Continue supportive care. 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 Prognosis remains guarded to poor. Management per team. Critical care time 35-minute 07/09/20 patient is tachycardic. Heart rate 121. Hemoglobin 7.3. Patient is having hemodialysis. Continue supportive care. Patient having difficulty to wean off from the vent support. Prognosis is poor. Nephrology and cardiology follow-up. Recheck CBC BMP in the morning. Continue current management. 07/10/20 patient seen and examined, remains on full ventilator patient is doing better. Patient is off pressor. heart rate 123. Hemoglobin 6.8 and hematocrit 20.7. WBC is 18.1. Continue supportive care. Patient having difficulty to wean off from the vent support. We will started on Zosyn 4.5 g IV every 8 hours. Will transfuse 1 unit of packed red blood cell. Prognosis is poor. Nephrology and cardiology follow up. Recheck CBC BMP in the morning 07/11: remains off vasopressor, h/h appropriately responded to 1 unit PRBC. HD today. Remain on MV with fiO2 at 70%. peep 10. No acute events reported overnight. 07/12: Patient remains in atrial fibrillation on the environmental monitoring specialist, vas opressor support with Levophed and vasopressin, sedated with fentanyl and propofol. Vent settings: CMV 500/25/14/0.60. Patient remains hypercarbic on ABG 07/13: Patient remains on vasopressin, fentanyl and propofol with rectal tube in place. This morning some examination patient was on assist control 25/500/14/0.60. Patient received hemodialysis today. No acute events reported overnight. 07/14: Remains on vasopressin, fentanyl and propofol with tube in place. Rectal tube in place with noted blood clots, GI consulted, on 07/13 H/H dropped from 8.7/27 to 7.4/22 and anticoagulation discontinued. This morning I spoke to his who still wishes for the patient to remain a full code despite update with continued use of vasopressor (vasopressin), current ventilatory support (CMV 500/25/14/0.60) and recent development of rectal bleeding. Patient's family requests an update from [facility] and GI. Cardio changed amio from PO to IV given elevated HR 07/15: Today the patient received a total of 5 units of PRBC and is still having bleeding through his rectal tube. CTA abdomen/pelvis is pending, patient remains on Levophed, fentanyl, propofol, vasopressin and received hemodialysis today. He was also hyperkalemic today to 6 and he received insulin and D50. Extensive conversation with family conducted by [facility] and hospitalist and his and 2 daughters did visit him today at the bedside. 07/16: Continues with full ventilatory support. FMS still inplace with some loose bloody stool. Still on multiple pressors, Bilateral swollen and generalized anascara. Monitor H/H and transfuse as needed. Monitor K level. Discussed with family at bedside yesterday. 07/17: Continue supportive care, transfusion blood possible in am with HD, continue abx, very poor prognosis, blood pressure still labile. Discussed with nurse at bedside 07/18: CTA abdomen/pelvis completed, antibiotics changed to Zosyn per infectious disease, remains on mechanical ventilation 450/25/12/0.55 continue amiodarone drip for 24 more hours, blood culture grew Enterococcus. Remains sedated on propofol and fentanyl. Not on vasopressor support today 07/19: No acute events reported overnight, remains sedated with fentanyl and propofol and off vasopressor therapy today. 07/20: s/p debridement with surgery today, remains on fentanyl, propofol, Levophed and current vent settings 450/25/10/0.45. Patient will be transferred to a bariatric bed once available. 07/21: Continue current management, wean ventilator as tolerated, IV antibiotics deescalated to ampicillin. Per infectious disease no need to exchange/remove lines unless repeat blood cultures turn positive. The time my examination patient was sedated on fentanyl and propofol and remains off vasopressor support. 07/22: At the time my examination patient is sedated on fentanyl and propofol and remains off vasopressor support, repeat COVID-19 PCR negative. Patient remains on ampicillin. H/H remained stable and GI has signed off. Mechanical ventilation weaning as tolerated. 07/23. He remains sedated on fentanyl and propofol. On mechanical ventilation. On levophed. repeat COVID-19 PCR negative. Patient remains on ampicillin. H/H remained stable and GI has signed off. 07/24. He remains sedated and on mechanical ventilation. On levophed. repeat COVID-19 PCR negative. On ampicillin. ID recs appreciated. Labs reviewed 07/25: Patient remains sedated on fentanyl and Diprivan and remains on mechanical ventilation. Repeat CXR and still has leukocytosis. Patient is n.p.o. for trach and PEG with surgery. 07/26: Remains sedated on fentanyl and propofol. Remains on vasopressor support with Levophed. Current vent settings CMV 450/20/8/0.40. Patient is scheduled for PEG/trach with surgery. No acute events reported overnight. 07/27: Debridement with surgery to sacrum:, Activity restarted, remains sedated on propofol/fentanyl and Precedex support with Levophed. Current vent settings CMV 450/20/8/135. S/p trach/PEG with surgery 07/26. Patient remains afebrile how ever leukocytosis slightly worse today and he is still on his ampicillin. Patient was hypoglycemic overnight. 07/28: Patient remains sedated on propofol and fentanyl. Continue amiodarone drip for rate control. Patient be started on pressors of Levophed last evening. Patient currently with PSV/CPAP FiO2 35% PEEP of 8 and pressure support of 20. Wean mechanical ventilation as tolerated, VAP bundle. Continue hemodialysis per nephrology recommendations. Continue antibiotics per ID recommendations. Hold systemic anticoagulation in the setting of severe anemia. Patient with status post debridement on 07/27. 07/29: Continue sedation per pulmonary. Amiodarone drip for rate control. Continue vasopressors to maintain MAP > 65. Mechanical ventilation currently AC mode rate of 20 tidal volume 450, FiO2 35% and PEEP of 8. Wean mechanical ventilation as tolerated, VAP bundle. Continue hemodialysis per nephrology recommendations. Continue antibiotics per ID recommendations until 08/01/2020. Repeat blood cultures have been negative. Hold systemic anticoagulation in the setting of severe anemia. 07/30: Patient currently with AC mode rate of 14, tidal volume 450, FiO2 40% and PEEP of 8. Wean mechanical ventilation as tolerated, VAP bundle. Continue hemodialysis per nephrology recommendations. Continue antibiotics per ID recommendations. Hold systemic anticoagulation in the setting of severe anemia. 07/31: Patient currently with AC mode ventilation rate 30, tidal volume 450 FiO2 100%, pressure support 16 and PEEP of 8. Wean mechanical ventilation as pari erated, VAP bundle. Continue hemodialysis per nephrology recommendations. Continue antibiotics per ID recommendations. Patient currently on ampicillin. Hold systemic anticoagulation in the setting of severe anemia. Continue restraints for safety. Continue pressors to maintain MAP > 65. Awaiting family decision to discharge to LTAC. The high probability of a clinically significant, sudden or life threatening deterioration of the [cardiac, respiratory and neurological] system(s) required my full and direct attention, intervention and personal management. The aggregate critical care time was [34] minutes. This time is in addition to time spent performing reported procedures but includes the following: [x] Data Review and interpretation [x] Patient assessment and monitoring of vital signs [x] Documentation [x] Medication orders and management History Interval history: No new issues overnight. Hospitalist Physical - Constitutional Vitals: Temp Pulse Resp BP Pulse Ox 99.6 F 123 H 20 130/60 100 07/31/20 08:00 07/31/20 08:00 07/31/20 08:00 07/31/20 08:00 07/31/20 08:00 General appearance: Present: no acute distress, well-nourished, other (Patient remains on mechanical ventilation) - EENT Eyes: Present: PERRL, EOM intact ENT: hearing intact, clear oral mucosa, dentition normal - Neck Neck: Present: supple, normal ROM - Respiratory Respiratory effort: normal Respiratory: bilateral: CTA - Cardiovascular Rhythm: regular Heart Sounds: Present: S1 & S2. Absent: gallop, rub - Extremities Extremities: no ischemia, No edema, Full ROM - Abdominal General gastrointestinal: soft, non-tender, non-distended, normal bowel sounds - Integumentary Integumentary: Present: clear, warm, dry - Neurologic Neurologic: CNII-XII intact, moves all extremities HEART Score - HEART Score Troponin: Troponin T < 0.010 ng/mL (0.00-0.029) 06/17/20 12:33 Results - Labs CBC & Chem 7: 07/31/20 09:00 07/31/20 09:00 Labs: Laboratory Last Values WBC 30.8 K/mm3 (4.5-11.0) H 07/31/20 09:00 RBC 2.39 M/mm3 (3.65-5.03) L 07/31/20 09:00 Hgb 7.3 gm/dl (11.8-15.2) L 07/31/20 09:00 Hct 21.9 % (35.5-45.6) L 07/31/20 09:00 MCV 92 fl (84-94) 07/31/20 09:00 MCH 31 pg (28-32) 07/31/20 09:00 MCHC 33 % (32-34) 07/31/20 09:00 RDW 16.7 % (13.2-15.2) H 07/31/20 09:00 Plt Count 220 K/mm3 (140-440) 07/31/20 09:00 Lymph % (Auto) 3.2 % (13.4-35.0) L 07/29/20 04:39 [place] % (Auto) 7.0 % (0.0-7.3) 07/29/20 04:39 Eos % (Auto) 2.1 % (0.0-4.3) 07/29/20 04:39 Baso % (Auto) 1.2 % (0.0-1.8) 07/29/20 04:39 Lymph # (Auto) 1.2 K/mm3 (1.2-5.4) 07/29/20 04:39 [place] # (Auto) 2.7 K/mm3 (0.0-0.8) H 07/29/20 04:39 Eos # (Auto) 0.8 K/mm3 (0.0-0.4) H 07/29/20 04:39 Baso # (Auto) 0.4 K/mm3 (0.0-0.1) H 07/29/20 04:39 Add Manual Diff Complete 07/27/20 04:00 Total Counted 100 07/27/20 04:00 Seg Neutrophils % 86.5 % (40.0-70.0) H 07/29/20 04:39 Seg Neuts % (Manual) 85.0 % (40.0-70.0) H 07/27/20 04:00 Band Neutrophils % 1.0 % 07/26/20 Unknown Lymphocytes % (Manual) 4.0 % (13.4-35.0) L 07/27/20 04:00 Reactive Lymphs % (Man) 1.0 % 06/23/20 04:00 Monocytes % (Manual) 6.0 % (0.0-7.3) 07/27/20 04:00 Eosinophils % (Manual) 4.0 % (0.0-4.3) 07/27/20 04:00 Basophils % (Manual) 1.0 % (0.0-1.8) 07/27/20 04:00 Metamyelocytes % 1.0 % 07/26/20 Unknown Myelocytes % 1.0 % 07/25/20 05:39 Promyelocytes % 0 % 07/17/20 15:25 Nucleated RBC % Not Reportable 07/27/20 04:00 Seg Neutrophils # 33.4 K/mm3 (1.8-7.7) H 07/29/20 04:39 Seg Neutrophils # Man 23.0 K/mm3 (1.8-7.7) H 07/27/20 04:00 Band Neutrophils # 0.0 K/mm3 07/27/20 04:00 Lymphocytes # (Manual) 1.1 K/mm3 (1.2-5.4) L 07/27/20 04:00 Abs React Lymphs (Man) 0.0 K/mm3 07/27/20 04:00 Monocytes # (Manual) 1.6 K/mm3 (0.0-0.8) H 07/27/20 04:00 Eosinophils # (Manual) 1.1 K/mm3 (0.0-0.4) H 07/27/20 04:00 Basophils # (Manual) 0.3 K/mm3 (0.0-0.1) H 07/27/20 04:00 Metamyelocytes # 0.0 K/mm3 07/27/20 04:00 Myelocytes # 0.0 K/mm3 07/27/20 04:00 Promyelocytes # 0.0 K/mm3 07/27/20 04:00 Blast Cells # 0.0 K/mm3 07/27/20 04:00 Pathologist Review 07/17/20 15:25 WBC Morphology Not Reportable 07/27/20 04:00 Hypersegmented Neuts Not Reportable 07/27/20 04:00 Hyposegmented Neuts Not Reportable 07/27/20 04:00 Hypogranular Neuts Not Reportable 07/27/20 04:00 Smudge Cells Not Reportable 07/27/20 04:00 Toxic Granulation Not Reportable 07/27/20 04:00 Toxic Vacuolation Not Reportable 07/27/20 04:00 Dohle Bodies Not Reportable 07/27/20 04:00 Pelger-Huet Anomaly Not Reportable 07/27/20 04:00 Carlito Rods Not Reportable 07/27/20 04:00 Platelet Estimate Consistent w auto 07/27/20 04:00 Clumped Platelets Not Reportable 07/27/20 04:00 Plt Clumps, EDTA Not Reportable 07/27/20 04:00 Large Platelets Not Reportable 07/27/20 04:00 Giant Platelets Not Reportable 07/27/20 04:00 Platelet Satelliting Not Reportable 07/27/20 04:00 Plt Morphology Comment Not Reportable 07/27/20 04:00 RBC Morphology Not Reportable 07/27/20 04:00 Dimorphic RBCs Not Reportable 07/27/20 04:00 Polychromasia Not Reportable 07/27/20 04:00 Hypochromasia 1+ 07/27/20 04:00 Poikilocytosis Not Reportable 07/27/20 04:00 Anisocytosis Not Reportable 07/27/20 04:00 Microcytosis Not Reportable 07/27/20 04:00 Macrocytosis Not Reportable 07/27/20 04:00 Spherocytes Not Reportable 07/27/20 04:00 Pappenheimer Bodies Not Reportable 07/27/20 04:00 Sickle Cells Not Reportable 07/27/20 04:00 Target Cells Not Reportable 07/27/20 04:00 Tear Drop Cells Not Reportable 07/27/20 04:00 Ovalocytes Not Reportable 07/27/20 04:00 Stomatocytes Few 07/27/20 04:00 Helmet Cells Not Reportable 07/27/20 04:00 Brothers-Sena Bodies Not Reportable 07/27/20 04:00 [place] Rings Not Reportable 07/27/20 04:00 Livier Cells Not Reportable 07/27/20 04:00 Bite Cells Not Reportable 07/27/20 04:00 Crenated Cell Not Reportable 07/27/20 04:00 Elliptocytes Not Reportable 07/27/20 04:00 Acanthocytes (Spur) Not Reportable 07/27/20 04:00 Rouleaux Not Reportable 07/27/20 04:00 Hemoglobin C Crystals Not Reportable 07/27/20 04:00 Schistocytes Not Reportable 07/27/20 04:00 Malaria parasites Not Reportable 07/27/20 04:00 Victoriano Bodies Not Reportable 07/27/20 04:00 Hem Pathologist Commnt No 07/27/20 04:00 PT 15.3 Sec. (12.2-14.9) H 07/24/20 20:40 INR 1.21 (0.87-1.13) H 07/24/20 20:40 APTT 36.1 Sec. (24.2-36.6) 07/24/20 20:40 Fibrinogen 419 mg/dl (211-480) 07/15/20 08:21 D-Dimer 6608.00 ng/mlDDU (0-234) H 07/03/20 14:50 Heparin Anti-Xa Level < 0.10 U.I./ml (0.3-0.7) L 06/26/20 01:30 ABG pH 7.241 (7.320-7.450) L 07/31/20 05:28 POC ABG pCO2 52.8 mmHg (32.0-48.0) H 07/31/20 05:28 ABG pCO2 44.4 mm Hg 07/28/20 14:31 POC ABG pO2 63.3 mmHg (83-108) L 07/31/20 05:28 ABG pO2 68.0 mm Hg (80.0-90.0) L 07/28/20 14:31 POC ABG HCO3 22.2 07/31/20 05:28 ABG HCO3 23.1 mmol/L (20.0-26.0) 07/28/20 14:31 ABG O2 Saturation 89.5 (0-100) 07/31/20 05:28 ABG O2 Content 11.4 (0.0-44) 07/28/20 14:31 POC ABG Base Excess -5 07/31/20 05:28 ABG Base Excess -2.7 mmol/L (-2.0-3.0) L 07/28/20 14:31 ABG Hemoglobin 7.6 (12.0-17.5) L 07/31/20 05:28 ABG Oxyhemoglobin 91.7 (94-98) L 07/22/20 04:11 ABG Carboxyhemoglobin 2.2 % (0.0-5.0) 07/28/20 14:31 ABG Methemoglobin 0.6 % (0.0-1.5) 07/28/20 14:31 ABG Sodium 133.6 mmol/L (136.0-145.0) L 07/31/20 05:28 ABG Potassium 3.9 mmol/L (3.40-4.50) 07/31/20 05:28 ABG Chloride 102.0 mmol/L (98-107) 07/31/20 05:28 ABG Glucose 114 mg/dL (65-95) H 07/31/20 05:28 Oxyhemoglobin 89.9 % (95.0-99.0) L 07/28/20 14:31 Carboxyhemoglobin 1.3 (0.5-1.5) 07/22/20 04:11 FiO2 35 % 07/28/20 14:31 FiO2 % 50 07/31/20 05:28 Sodium 136 mmol/L (137-145) L 07/31/20 09:00 Potassium 3.8 mmol/L (3.6-5.0) D 07/31/20 09:00 Chloride 99.2 mmol/L (98-107) 07/31/20 09:00 Carbon Dioxide 23 mmol/L (22-30) 07/31/20 09:00 Anion Gap 18 mmol/L 07/31/20 09:00 BUN 46 mg/dL (9-20) H 07/31/20 09:00 Creatinine 2.4 mg/dL (0.8-1.3) H 07/31/20 09:00 Estimated GFR 33 ml/min 07/31/20 09:00 BUN/Creatinine Ratio 19 % 07/31/20 09:00 Glucose 98 mg/dL (75-100) 07/31/20 09:00 POC Glucose 105 mg/dL (70-105) 07/31/20 05:32 Lactic Acid 0.90 mmol/L (0.7-2.0) 07/23/20 Unknown Calcium 7.7 mg/dL (8.4-10.2) L 07/31/20 09:00 Phosphorus 9.40 mg/dL (2.5-4.5) H 06/30/20 03:50 Magnesium 2.70 mg/dL (1.7-2.3) H 06/18/20 20:33 Ferritin 1171.0 ng/mL (30.0-300.0) H 07/03/20 14:50 Total Bilirubin 0.20 mg/dL (0.1-1.2) 07/24/20 06:40 Direct Bilirubin 0.5 mg/dL (0-0.2) H 07/05/20 08:21 Indirect Bilirubin 0.1 mg/dL 07/05/20 08:21 AST 46 units/L (5-40) H 07/24/20 06:40 ALT 74 units/L (7-56) H 07/24/20 06:40 Alkaline Phosphatase 180 units/L (35-129) H 07/24/20 06:40 Lactate Dehydrogenase 525 units/L (91-180) H 07/03/20 14:50 Total Creatine Kinase 618 units/L (55-170) H 06/29/20 Unknown Troponin T < 0.010 ng/mL (0.00-0.029) 06/17/20 12:33 C-Reactive Protein 31.50 mg/dL (0.00-1.30) H 07/03/20 14:50 Total Protein 4.6 g/dL (6.3-8.2) L 07/24/20 06:40 Albumin 2.0 g/dL (3.9-5) L 07/24/20 06:40 Albumin/Globulin Ratio 0.8 % 07/24/20 06:40 Triglycerides 184 mg/dL (2-149) H 07/30/20 Unknown Procalcitonin 6.05 ng/mL (<0.15) 07/13/20 06:59 Arterial Blood Glucose 114 mg/dL (65-95) H 07/31/20 05:28 Arterial Blood Ionized Calcium 4.4 mg/dL (4.6-5.3) L 07/31/20 05:28 Urine Color Yellow (Yellow) 06/17/20 15:57 Urine Turbidity Clear (Clear) 06/17/20 15:57 Urine pH 6.0 (5.0-7.0) 06/17/20 15:57 Ur Specific [place] 1.019 (1.003-1.030) 06/17/20 15:57 Urine Protein 30 mg/dl mg/dL (Negative) 06/17/20 15:57 Urine Glucose (UA) Neg mg/dL (Negative) 06/17/20 15:57 Urine Ketones Neg mg/dL (Negative) 06/17/20 15:57 Urine Blood Sm (Negative) 06/17/20 15:57 Urine Nitrite Neg (Negative) 06/17/20 15:57 Ur Reducing Substances Not Reportable 06/17/20 15:57 Urine Bilirubin Neg (Negative) 06/17/20 15:57 Urine Ictotest Not Reportable 06/17/20 15:57 Urine Urobilinogen < 2.0 mg/dL (<2.0) 06/17/20 15:57 Ur Leukocyte Esterase Neg (Negative) 06/17/20 15:57 Urine WBC (Auto) 1.0 /HPF (0.0-6.0) 06/17/20 15:57 Urine RBC (Auto) 2.0 /HPF (0.0-6.0) 06/17/20 15:57 Urine Mucus Few /HPF 06/17/20 15:57 Urine Creatinine 192.4 mg/dL (0.1-20.0) H 06/18/20 15:00 Urine Sodium 28 mmol/L 06/18/20 15:00 Urine Chloride 31.1 mmolL (110-250) L 06/18/20 15:00 Nasal Screen MRSA (PCR) Negative (Negative) 06/19/20 10:38 Vancomycin Trough 22.7 ug/mL (5.0-20.0) H 06/20/20 08:25 Random Vancomycin 13.5 ug/mL (0-40.0) 07/16/20 07:17 Coronavirus (PCR) Negative (Negative) 07/22/20 Unknown Hepatitis A IgM Ab Non-reactive (NonReactive) 06/22/20 17:00 Hep Bs Antigen Non-reactive (Negative) 06/22/20 17:00 Hep B Core IgM Ab Non-reactive (NonReactive) 06/22/20 17:00 Hepatitis C Antibody Non-reactive (NonReactive) 06/22/20 17:00 SARS-CoV-2 IgG Ab Nonreactive (NonReactive) 07/04/20 05:20 Blood Type A POSITIVE 07/30/20 23:13 Antibody Screen Negative 07/30/20 23:13 Crossmatch See Detail 07/30/20 23:13 - Diagnostic Impressions Diagnostic Impressions: Echocardiogram 06/29/20 06:00 Transthoracic Echocardiogram Indication: A-fib BP: 105/47 HR: 99 Conclusions *The study is technically very difficult and limited due to poor acoustic windows. *Global left ventricular wall motion and contractility are within normal limits. *The estimated ejection fraction is 55-60%. *There is no pericardial effusion. Findings Procedure Info: The study quality is technically difficult. The study is technically limited due to poor acoustic windows. Left Ventricle: Global left ventricular wall motion and contractility are within normal limits. Global left ventricular systolic function is normal. The estimated ejection fraction is 55-60%. Left Atrium: The left atrium is not well visualized. Right Ventricle: The right ventricle is not well visualized. Right Atrium: The right atrium is not well visualized. Aortic Valve: The aortic valve is not well visualized. Mitral Valve: The mitral valve is not well visualized. Tricuspid Valve: The tricuspid valve is not well visualized. Pulmonic Valve: The pulmonic valve is not well visualized. Pericardium: There is no pericardial effusion. Venous: There is no change in the dimension of the inferior vena cava with respiration consistent with markedly increased right atrial pressure. Newell/IV: Voiding Method Incontinent Active Medications - Current Medications Current Medications: Generic Name Dose Route Start Last Admin Trade Name Freq PRN Reason Stop Dose Admin Acetaminophen 650 mg 06/17/20 14:17 07/31/20 02:45 Acetaminophen 325 Mg Tab PO 650 mg Q4H PRN Administration Pain MILD(1-3)/Fever >100.5/ROBERTS Albuterol 2.5 mg 07/19/20 12:15 Albuterol 2.5 Mg/3 Ml Nebu IH Q6HRT PRN Shortness Of Breath Alteplase, Recombinant 2 mg 07/27/20 18:40 Alteplase 2 Mg Inj IV PAM PRN LINE FLUSH Amiodarone HCl 200 mg 07/19/20 14:00 07/31/20 09:59 Amiodarone 200 Mg Tab PO Not Given BID CONNOR Lipase/Protease/Amylase 1 each 06/19/20 12:15 Lipase 10,500/Protease 25,000/Amylase 43,750 (Units) Dr Cap FEEDTUBE PRN PRN For Clogged Feeding Tube Ascorbic Acid 250 mg 06/17/20 22:00 07/31/20 09:56 Ascorbic Acid 250 Mg Tab PO 250 mg BID CONNOR Administration Cholecalciferol 1,000 unit 06/18/20 10:00 07/31/20 09:56 Cholecalciferol (Vit D3) 1000 Unit (25 Mcg) Tab PO 1,000 unit DAILY CONNOR Administration Dextrose 50 ml 07/26/20 22:00 07/27/20 06:42 Dextrose 50% In Water (25gm) 50 Ml Syringe IV 50 ml Q30MIN PRN Administration Hypoglycemia Protocol Docusate Sodium 100 mg 06/23/20 15:00 07/31/20 09:56 Docusate Sodium 100 Mg/10 Ml Oral Liqd FEEDTUBE 100 mg BID CONNOR Administration Fentanyl 50 mcg 06/18/20 01:02 07/27/20 16:59 Fentanyl 100 Mcg/2 Ml Inj IV 50 mcg Q10MIN PRN Administration ANALGESIA Heparin Sodium (Porcine) 5,000 unit 06/22/20 12:53 07/28/20 20:45 Heparin 10,000 Unit/1 Ml Vial IV 5,000 unit PAM PRN Administration hemodialysis Hydrophilic Ointment 1 applic 06/17/20 22:52 07/12/20 20:22 Lip Therapy Vaseline TP 1 applic Q2HR PRN Administration Dry Lips Propofol 1,000 mg in 100 mls @ 3.402 mls/hr 06/18/20 01:00 07/31/20 05:28 Diprivan 10 Mg/Ml IV 5 mcg/kg/min TITR CONNOR 3.402 mls/hr Titration Protocol 5 MCG/KG/MIN Fentanyl Citrate 2,000 mcg in 100 mls @ 8 mls/hr 06/18/20 02:00 07/31/20 05:28 Fentanyl Drip Premix IV 4 mcg/kg/hr TITR CONNOR 32 mls/hr Titration Protocol 1 MCG/KG/HR Norepinephrine 4 mg in 250 mls @ 7.5 mls/hr 07/08/20 02:06 07/31/20 05:30 Levophed Drip 4 Mg/Ns 250 Ml IV 8 mcg/min TITR CONNOR 30 mls/hr Administration Protocol 2 MCG/MIN Vasopressin 20 unit/ Sodium 101 mls @ 9.09 mls/hr 07/11/20 11:00 07/18/20 15:36 Chloride IV 0 units/min TITR CONNOR 0 mls/hr Titration Protocol 0.03 UNITS/MIN Ampicillin Sodium 2 gm in 100 mls @ 100 mls/hr 07/21/20 12:00 07/30/20 23:46 Ampicillin/Ns 2 Gm/100 Ml IV 08/01/20 12:59 100 mls/hr Q12H CONNOR Administration Protocol Amiodarone HCl 900 mg/ 500 mls @ 33.333 mls/hr 07/27/20 17:00 07/30/20 16:51 Dextrose IV 0.5 mg/min DIRECT CONNOR 16.667 mls/hr Administration Protocol 1 MG/MIN Sodium Chloride 100 mls @ 999 mls/hr 07/27/20 18:40 Nacl 0.9% IV PAM PRN Hypotension Insulin Human Regular 0 units 06/18/20 12:00 07/31/20 06:12 Insulin Regular, Human 100 Units/1 Ml SUB-Q Not Given Q6HR [facility] Protocol Multi-Ingred Cream/Lotion/Oil/Oint 1 applic 06/17/20 22:52 07/12/20 20:22 Mineral Oil/Petrolatum, White Ophth Oint 3.5 Gm OU 1 applic Q4HR PRN Administration Dry Eye(s) Ondansetron HCl 4 mg 06/17/20 14:17 Ondansetron 4 Mg/2 Ml Inj IV Q8H PRN Nausea And Vomiting Pantoprazole Sodium 40 mg 07/16/20 22:00 07/31/20 09:56 Pantoprazole 40 Mg Inj IV 40 mg BID CONNOR Administration Polyethylene Glycol 17 gm 06/23/20 15:00 07/31/20 09:56 Polyethylene Glycol 3350 17 Gm Powder PO 17 gm QDAY CONNOR Administration Quetiapine Fumarate 200 mg 06/28/20 13:00 07/31/20 09:56 Quetiapine 200 Mg Tab PO 200 mg BID CONNOR Administration Scopolamine 1 each 07/29/20 14:00 07/29/20 13:39 Scopolamine Transdermal Patch 72 Hr TD 1 each Q3D CONNOR Administration Simple Syrup 15 ml 06/19/20 12:15 07/26/20 13:55 Simple Syrup 15 Ml FEEDTUBE 15 ml PRN PRN Administration Hypoglycemia Simple Syrup 30 ml 06/19/20 12:15 07/19/20 06:04 Simple Syrup 15 Ml FEEDTUBE 30 ml PRN PRN Administration Hypoglycemia Sodium Bicarbonate 325 mg 06/19/20 12:15 07/11/20 20:00 Sodium Bicarbonate 325 Mg Tab FEEDTUBE 325 mg PRN PRN Administration For Clogged Feeding Tube Sodium Chloride 10 ml 06/17/20 22:00 07/31/20 09:57 Sodium Chloride 0.9% 10 Ml Flush Syringe IV 10 ml BID CONNOR Administration Sodium Chloride 10 ml 06/17/20 14:17 07/30/20 09:46 Sodium Chloride 0.9% 10 Ml Flush Syringe IV 10 ml PRN PRN Administration LINE FLUSH Sodium Hypochlorite 1 applic 07/20/20 10:00 07/31/20 10:09 Sodium Hypochlorite, Dakin's 1/2 Strength (0.25%) 473 Ml Topical Soln TP 1 applicatio BID CONNOR Administration Zinc Sulfate 220 mg 06/17/20 22:00 07/31/20 09:56 Zinc Sulfate 220 Mg Cap PO 220 mg BID CONNOR Administration Nutrition/Malnutrition Assess - Dietary Evaluation Nutrition/Malnutrition Findings: Nutrition Notes Start: 06/18/20 10:28 Freq: Status: Active Protocol: Document 07/28/20 10:21 AL (Rec: 07/28/20 10:34 AL [id number]) Co-Sign 07/28/20 10:21 LP Nutrition Notes Initial or Follow up Reassessment Current Diagnosis Acute Kidney Injury,Sepsis, Respiratory Failure Other Pertinent Diagnosis Pneu, on HD. Current Diet Nepro 1.8 at 50 ml/hr Labs/Tests K 3.2 BUN 35 Cr 2.3 Pertinent Medications Levophed Propofol 10.2 ml/hr (269 kcal) Height 6 ft Weight 157.9 kg [place] Body Weight (kg) 80.90 BMI 47.2 Weight change and time frame 6.3% wt loss (10.6 kg). Pt on HD. Weight Status Morbidly Obese Subjective/Other Information F/U for trach/PEG placement and TF tolerance. Trach/PEG placed on 07/26. Pt tolerating TF at 50 ml/hr (goal rate). Percent of energy/protein needs met: 98%/60% Burn Absent Trauma Absent GI Symptoms Other Skin Integrity/Comment Unstageable Sacral Pressure Ulcer Current % PO Negligible Minimum of two criteria No physical signs of malnutrition #3 Nutrition Diagnosis Increased nutrient needs ( specify in comment below) Comments: Protein Diagnosis Progress(for reassessment Continues documentation) #1 Nutrition Diagnosis Inadequate oral intake Diagnosis Progress(for reassessment Continues documentation) Is patient on ventilator? Yes Is Patient Ambulatory and/or Out of Bed No REE-([facility]-confined to bed) 2904.456 Kcal/Kg value to use for calculation 14 Approximate Energy Requirements Using 2211 kcal/Kg Calculation Used for Recommendations Kcal/kg Additional Notes Protein: Up to 162 g (up to 2. 5 g/kg IBW) Fluids: 1,000 ml + output Nutrition Intervention Change Diet Order: TF Nutrition Support: Nepro 1.8 at 55 ml/hr Flush 250 ml q4h Kcal 2,376 Protein (gm) 107 Fluid (mL) 959 Add Supplement/Snack (indicate name/kcal Gee BID /protein ) Provides kCal: 190 Provides Protein (gm) 5 Goal #1 TF tolerance at new goal rate Goal #2 Meet energy and protein needs as best as possible via TF Goal #3 Wound healing. Anticipated Discharge Needs: Nepro 1.8 at 55 ml/hr Flush 250 ml q4h Follow-Up By: 08/01/20 Additional Comments F/U for TF tolerance & new TF goal rate
--- NOTE | 2020-07-31 11:30 | Progress Note ---
Assessment and Plan Cultures: SARS CoV2 PCR: Positive 06/17/2020 blood culture: No growth 06/17/2020 sputum culture: No growth 07/15/2020 blood culture: No growth 07/15/2020 fungal blood culture: Enterococcus faecalis 07/15/2020 tracheal aspirate culture: Usual respiratory otf 07/18/2020 blood culture: no growth A/P: 59-year-old male with obesity, obesity hypoventilation syndrome: #Severe sepsis with septic shock, ?also component of hemorrhagic shock. Remains on pressors, with fever and #Enterococcus bacteremia: 07/15/2020 fungal blood culture: grew Enterococcus. ?gut translocation. Interestingly other blood cultures from that day were negative. CT abdomen showed some colitis. Since repeat blood cultures negative, will finish 14 days of abx. #Anemia, GI bleed: GI on board. #Critical COVID-19 pneumonia: s/p abx, steroids and remdesivir. #Acute hypoxic respiratory failure: on the vent. Also with pneumomediastinum, subcutaneous emphysema. #Leukemoid reaction: likely multifactorial. #GIRISH: remains on HD per nephrology. Renally dose abx. #Sacral decubitus: s/p debridement by Dr. Kirk on 07/20/2020. Recs: -Given persistent requirement of pressors/worsening sepsis please remove left femoral Vas-Cath/right IJ -Repeat blood cultures, sputum cultures, urine culture -Continue IV Ampicillin, renally dosed, complete 14 days ending 08/01/2020 -monitor fever and WBC Guarded prognosis Bere Hampton MD [facility] ([facility]) Office [phone] Subjective Date of service: 07/31/20 Principal diagnosis: ARF; Septic Shock; COVID-19 PNA; Atrial fibrillation; Obesity Interval history: Patient remains on the ventilator via trach, desaturated overnight, FiO2 was up to 100%. Remains on Levophed at 8. Noted low-grade fever 100.5. Objective - Exam Narrative Exam: General appearance: Unresponsive Eyes: anicteric sclerae, moist conjunctivae; no lid-lag; PERRLA HENT: Normocephalic, Atraumatic; normal external ears, nares open, oropharynx limited Neck: Trach in place Lungs: Bilateral rhonchi CV: Tachycardic Abdomen: Soft, non-tender; no masses or hepatosplenomegaly Extremities: Bilateral arms and leg edema Skin: Left inner thigh with shows total Psych: no agitated Neuro: Nonresponsive - Constitutional Vitals: Vital Signs Temp Pulse Resp BP Pulse Ox 99.6 F 124 H 30 H 98/56 100 07/31/20 08:00 07/31/20 11:00 07/31/20 11:00 07/31/20 11:00 07/31/20 11:00 Temperature -Last 24 Hours Temperature 99.6 F Temperature 99.2 F Temperature 99 F Temperature 99.8 F Temperature 99.8 F Temperature 99.2 F Temperature 100.5 F Temperature 99.8 F - Labs CBC & Chem 7: 07/31/20 09:00 07/31/20 09:00 Labs: Abnormal lab results 07/27/20 07/30/20 07/30/20 Range/Units 22:36 17:32 23:13 WBC (4.5-11.0) K/mm3 RBC (3.65-5.03) M/mm3 Hgb (11.8-15.2) gm/dl Hct (35.5-45.6) % RDW (13.2-15.2) % ABG pH (7.320-7.450) POC ABG pCO2 (32.0-48.0) mmHg POC ABG pO2 (83-108) mmHg ABG Hemoglobin (12.0-17.5) ABG Sodium (136.0-145.0) mmol/L ABG Glucose (65-95) mg/dL Sodium (137-145) mmol/L BUN (9-20) mg/dL Creatinine (0.8-1.3) mg/dL POC Glucose 107 H (70-105) mg/dL Calcium (8.4-10.2) mg/dL Arterial Blood Glucose (65-95) mg/dL Arterial Blood Ionized Calcium (4.6-5.3) mg/dL Crossmatch See Detail See Detail 07/31/20 07/31/20 07/31/20 Range/Units 05:28 09:00 09:00 WBC 30.8 H (4.5-11.0) K/mm3 RBC 2.39 L (3.65-5.03) M/mm3 Hgb 7.3 L (11.8-15.2) gm/dl Hct 21.9 L (35.5-45.6) % RDW 16.7 H (13.2-15.2) % ABG pH 7.241 L (7.320-7.450) POC ABG pCO2 52.8 H (32.0-48.0) mmHg POC ABG pO2 63.3 L (83-108) mmHg ABG Hemoglobin 7.6 L (12.0-17.5) ABG Sodium 133.6 L (136.0-145.0) mmol/L ABG Glucose 114 H (65-95) mg/dL Sodium 136 L (137-145) mmol/L BUN 46 H (9-20) mg/dL Creatinine 2.4 H (0.8-1.3) mg/dL POC Glucose (70-105) mg/dL Calcium 7.7 L (8.4-10.2) mg/dL Arterial Blood Glucose 114 H (65-95) mg/dL Arterial Blood Ionized Calcium 4.4 L (4.6-5.3) mg/dL Crossmatch
--- NOTE | 2020-07-31 12:21 | Progress Note ---
Assessment and Plan - Patient Problems (1) Acute renal failure Current Visit: Yes Status: Acute Qualifiers: Acute renal failure type: with acute tubular necrosis Qualified Code(s): N17.0 - Acute kidney failure with tubular necrosis Plan to address problem: Likely prerenal in nature secondary to new onset of COVID-19 pneumonia with worsening sepsis and hypotension. Concern for acute tubular necrosis. Has now been on HD with no significant findings of renal recovery at present time. He is also requiring extra isolated UF treatments to further optimize his volume status. No signs of renal recovery at this point. Concern for possible worsening sepsis and recommendations per ID for removal of vas catheter as well as right IJ. Unfortunately he will then not have any access for dialysis this patient still remains severely anasarcic and hemodialysis dependent with essentially no urine output. Will discuss with primary team but his overall prognosis is poor at this time. Repeat blood cultures have been ordered at this time. (2) Pneumonia due to COVID-19 virus Current Visit: Yes Status: Acute Plan to address problem: Management per infectious disease recommendations. (3) Acute respiratory failure with hypoxia Current Visit: Yes Status: Acute Plan to address problem: Patient underwent tracheostomy. Further management per pulmonary. (4) Anemia Current Visit: Yes Status: Acute Qualifiers: Other causes of anemia: acute posthemorrhagic Plan to address problem: Transfuse to maintain Hgb >7.0. (5) Hyperkalemia Current Visit: Yes Status: Acute Plan to address problem: Manage with HD. Subjective Date of service: 07/31/20 Principal diagnosis: ARF; Septic Shock; COVID-19 PNA; Atrial fibrillation; Obesity Interval history: Patient remains intubated at this time on pressor support with Levophed at 8 mcg/kg/min. Worsening respiratory status and increased FiO2 with changes made to vent settings. Infectious disease note reviewed with recommendations for removal of femoral Vas-Cath and right IJ in the setting of continued sepsis and pressor support. Patient is also pending transfer to LTAC. No signs of renal recovery at this time and his overall prognosis remains very poor. Objective - Vital Signs Vital signs: Vital Signs - 12hr 07/31/20 07/31/20 07/31/20 00:30 01:00 01:30 Temperature Pulse Rate 124 H 124 H 123 H Pulse Rate [ From Monitor] Respiratory 25 H 22 18 Rate Blood Pressure 106/54 101/52 99/51 O2 Sat by Pulse 90 90 91 Oximetry O2 Sat by Pulse Oximetry [ Assessment] 07/31/20 07/31/20 07/31/20 01:35 02:00 02:30 Temperature 99.8 F H Pulse Rate 123 H 124 H Pulse Rate [ From Monitor] Respiratory 18 25 H Rate Blood Pressure 98/52 111/57 O2 Sat by Pulse 91 90 Oximetry O2 Sat by Pulse 91 Oximetry [ Assessment] 07/31/20 07/31/20 07/31/20 03:00 03:30 03:55 Temperature Pulse Rate 124 H 124 H 124 H Pulse Rate [ From Monitor] Respiratory 23 25 H Rate Blood Pressure 117/59 112/57 116/51 O2 Sat by Pulse 89 91 91 Oximetry O2 Sat by Pulse Oximetry [ Assessment] 07/31/20 07/31/20 07/31/20 04:00 04:30 05:00 Temperature 99 F Pulse Rate 123 H 123 H 123 H Pulse Rate [ From Monitor] Respiratory 18 20 19 Rate Blood Pressure 108/59 110/62 121/63 O2 Sat by Pulse 94 93 90 Oximetry O2 Sat by Pulse Oximetry [ Assessment] 07/31/20 07/31/20 07/31/20 05:30 06:00 06:13 Temperature 99.2 F Pulse Rate 123 H 123 H Pulse Rate [ From Monitor] Respiratory 21 20 Rate Blood Pressure 105/57 113/61 O2 Sat by Pulse 96 97 Oximetry O2 Sat by Pulse Oximetry [ Assessment] 07/31/20 07/31/20 07/31/20 06:30 07:00 07:30 Temperature Pulse Rate 123 H 123 H 124 H Pulse Rate [ From Monitor] Respiratory 21 22 27 H Rate Blood Pressure 118/62 113/59 122/63 O2 Sat by Pulse 95 93 100 Oximetry O2 Sat by Pulse Oximetry [ Assessment] 07/31/20 07/31/20 07/31/20 08:00 08:30 09:00 Temperature 99.6 F Pulse Rate 122 H 123 H 123 H Pulse Rate [ 123 H From Monitor] Respiratory 29 H 31 H 30 H Rate Blood Pressure 130/60 97/54 100/56 O2 Sat by Pulse 100 100 100 Oximetry O2 Sat by Pulse 100 Oximetry [ Assessment] 07/31/20 07/31/20 07/31/20 09:30 10:00 10:30 Temperature Pulse Rate 123 H 122 H 123 H Pulse Rate [ From Monitor] Respiratory 30 H 30 H 30 H Rate Blood Pressure 101/57 103/60 101/57 O2 Sat by Pulse 100 99 100 Oximetry O2 Sat by Pulse Oximetry [ Assessment] 07/31/20 11:00 Temperature Pulse Rate 124 H Pulse Rate [ From Monitor] Respiratory 30 H Rate Blood Pressure 98/56 O2 Sat by Pulse 100 Oximetry O2 Sat by Pulse Oximetry [ Assessment] - General Appearance General appearance: chronically ill, intubated EENT: ATNC Neck: no JVD Respiratory: Present: Decreased Breath Sounds Cardiology: regular Gastrointestinal: normal Integumentary: rash Neurologic: other (Intubated and sedated.) Musculoskeletal: other (3+ pitting edema/anasarca.) - Lab 07/31/20 09:00 07/31/20 09:00 Most recent lab results ABG pH 7.241 (7.320-7.450) L 07/31/20 05:28 ABG pCO2 44.4 mm Hg 07/28/20 14:31 ABG pO2 68.0 mm Hg (80.0-90.0) L 07/28/20 14:31 ABG HCO3 23.1 mmol/L (20.0-26.0) 07/28/20 14:31 ABG O2 Saturation 89.5 (0-100) 07/31/20 05:28 Calcium 7.7 mg/dL (8.4-10.2) L 07/31/20 09:00 Phosphorus 9.40 mg/dL (2.5-4.5) H 06/30/20 03:50 Magnesium 2.70 mg/dL (1.7-2.3) H 06/18/20 20:33 Urine Creatinine 192.4 mg/dL (0.1-20.0) H 06/18/20 15:00 Urine Sodium 28 mmol/L 06/18/20 15:00 - Allied health notes Allied health notes reviewed: nursing Medications & Allergies - Medications Allergies/Adverse Reactions: Allergies No Known Allergies Allergy (Unverified 06/17/20 14:24) Home Medications: Home Medications Medication Instructions Recorded Confirmed Last Taken Type Losartan/Hydrochlorothiazide 1 each PO QDAY 06/19/20 06/19/20 Unknown History [Losartan-Hctz 100-25 mg Tab] amLODIPine [Norvasc] 5 mg PO DAILY 06/19/20 06/19/20 Unknown History Active Medications: Generic Name Dose Route Start Last Admin Trade Name Freq PRN Reason Stop Dose Admin Acetaminophen 650 mg 06/17/20 14:17 07/31/20 02:45 Acetaminophen 325 Mg Tab PO 650 mg Q4H PRN Administration Pain MILD(1-3)/Fever >100.5/ROBERTS Albuterol 2.5 mg 07/19/20 12:15 Albuterol 2.5 Mg/3 Ml Nebu IH Q6HRT PRN Shortness Of Breath Alteplase, Recombinant 2 mg 07/27/20 18:40 Alteplase 2 Mg Inj IV PAM PRN LINE FLUSH Amiodarone HCl 200 mg 07/19/20 14:00 07/31/20 09:59 Amiodarone 200 Mg Tab PO Not Given BID CONNOR Lipase/Protease/Amylase 1 each 06/19/20 12:15 Lipase 10,500/Protease 25,000/Amylase 43,750 (Units) Dr Kulkarni FEEDTUBE PRN PRN For Clogged Feeding Tube Ascorbic Acid 250 mg 06/17/20 22:00 07/31/20 09:56 Ascorbic Acid 250 Mg Tab PO 250 mg BID CONNOR Administration Cholecalciferol 1,000 unit 06/18/20 10:00 07/31/20 09:56 Cholecalciferol (Vit D3) 1000 Unit (25 Mcg) Tab PO 1,000 unit DAILY CONNOR Administration Dextrose 50 ml 07/26/20 22:00 07/27/20 06:42 Dextrose 50% In Water (25gm) 50 Ml Syringe IV 50 ml Q30MIN PRN Administration Hypoglycemia Protocol Docusate Sodium 100 mg 06/23/20 15:00 07/31/20 09:56 Docusate Sodium 100 Mg/10 Ml Oral Liqd FEEDTUBE 100 mg BID CONNOR Administration Fentanyl 50 mcg 06/18/20 01:02 07/27/20 16:59 Fentanyl 100 Mcg/2 Ml Inj IV 50 mcg Q10MIN PRN Administration ANALGESIA Heparin Sodium (Porcine) 5,000 unit 06/22/20 12:53 07/28/20 20:45 Heparin 10,000 Unit/1 Ml Vial IV 5,000 unit PAM PRN Administration hemodialysis Hydrophilic Ointment 1 applic 06/17/20 22:52 07/12/20 20:22 Lip Therapy Vaseline TP 1 applic Q2HR PRN Administration Dry Lips Propofol 1,000 mg in 100 mls @ 3.402 mls/hr 06/18/20 01:00 07/31/20 05:28 Diprivan 10 Mg/Ml IV 5 mcg/kg/min TITR CONNOR 3.402 mls/hr Titration Protocol 5 MCG/KG/MIN Fentanyl Citrate 2,000 mcg in 100 mls @ 8 mls/hr 06/18/20 02:00 07/31/20 11:38 Fentanyl Drip Premix IV 4 mcg/kg/hr TITR CONNOR 32 mls/hr Administration Protocol 1 MCG/KG/HR Norepinephrine 4 mg in 250 mls @ 7.5 mls/hr 07/08/20 02:06 07/31/20 05:30 Levophed Drip 4 Mg/Ns 250 Ml IV 8 mcg/min TITR CONNOR 30 mls/hr Administration Protocol 2 MCG/MIN Vasopressin 20 unit/ Sodium 101 mls @ 9.09 mls/hr 07/11/20 11:00 07/18/20 15:36 Chloride IV 0 units/min TITR CONNOR 0 mls/hr Titration Protocol 0.03 UNITS/MIN Ampicillin Sodium 2 gm in 100 mls @ 100 mls/hr 07/21/20 12:00 07/30/20 23:46 Ampicillin/Ns 2 Gm/100 Ml IV 08/01/20 12:59 100 mls/hr Q12H CONNOR Administration Protocol Amiodarone HCl 900 mg/ 500 mls @ 33.333 mls/hr 07/27/20 17:00 07/30/20 16:51 Dextrose IV 0.5 mg/min DIRECT CONNOR 16.667 mls/hr Administration Protocol 1 MG/MIN Sodium Chloride 100 mls @ 999 mls/hr 07/27/20 18:40 Nacl 0.9% IV PAM PRN Hypotension Insulin Human Regular 0 units 06/18/20 12:00 07/31/20 06:12 Insulin Regular, Human 100 Units/1 Ml SUB-Q Not Given Q6HR CONNOR Protocol Multi-Ingred Cream/Lotion/Oil/Oint 1 applic 06/17/20 22:52 07/12/20 20:22 Mineral Oil/Petrolatum, White Ophth Oint 3.5 Gm OU 1 applic Q4HR PRN Administration Dry Eye(s) Ondansetron HCl 4 mg 06/17/20 14:17 Ondansetron 4 Mg/2 Ml Inj IV Q8H PRN Nausea And Vomiting Pantoprazole Sodium 40 mg 07/16/20 22:00 07/31/20 09:56 Pantoprazole 40 Mg Inj IV 40 mg BID CONNOR Administration Polyethylene Glycol 17 gm 06/23/20 15:00 07/31/20 09:56 Polyethylene Glycol 3350 17 Gm Powder PO 17 gm QDAY CONNOR Administration Quetiapine Fumarate 200 mg 06/28/20 13:00 07/31/20 09:56 Quetiapine 200 Mg Tab PO 200 mg BID CONNOR Administration Scopolamine 1 each 07/29/20 14:00 07/29/20 13:39 Scopolamine Transdermal Patch 72 Hr TD 1 each Q3D CONNOR Administration Simple Syrup 15 ml 06/19/20 12:15 07/26/20 13:55 Simple Syrup 15 Ml FEEDTUBE 15 ml PRN PRN Administration Hypoglycemia Simple Syrup 30 ml 06/19/20 12:15 07/19/20 06:04 Simple Syrup 15 Ml FEEDTUBE 30 ml PRN PRN Administration Hypoglycemia Sodium Bicarbonate 325 mg 06/19/20 12:15 07/11/20 20:00 Sodium Bicarbonate 325 Mg Tab FEEDTUBE 325 mg PRN PRN Administration For Clogged Feeding Tube Sodium Chloride 10 ml 06/17/20 22:00 07/31/20 09:57 Sodium Chloride 0.9% 10 Ml Flush Syringe IV 10 ml BID CONNOR Administration Sodium Chloride 10 ml 06/17/20 14:17 07/30/20 09:46 Sodium Chloride 0.9% 10 Ml Flush Syringe IV 10 ml PRN PRN Administration LINE FLUSH Sodium Hypochlorite 1 applic 07/20/20 10:00 07/31/20 10:09 Sodium Hypochlorite, Dakin's 1/2 Strength (0.25%) 473 Ml Topical Soln TP 1 applicatio BID CONNOR Administration Zinc Sulfate 220 mg 06/17/20 22:00 07/31/20 09:56 Zinc Sulfate 220 Mg Cap PO 220 mg BID CONNOR Administration
[2020-07-31 12:29] LABS: Anisocytosis 1+; Band Neutrophils # (Manual) 2.5 K/mm3; Platelet Estimate Consistent w Auto; Total Cells Counted 100
[2020-07-31] MEDS: AMPICILLIN/NS 2 GM/100 ML 2 GM/100 ML BAG IV SCH (12:37)
--- NOTE | 2020-07-31 14:13 | Progress Note ---
Assessment and Plan Acute hypoxemic respiratory failure due to COVID-19 Severe COVID infection Severe Sepsis with shock Bilateral pneumonia Acute kidney injury (GIRISH) with acute tubular necrosis (ATN) Elevated liver enzymes Obesity - repeat ABG tonight - will change out Vascath then pull RIJ - hold SBT's for now - wean vasopressors for target MAP > 65 mmHg - continue HD/UF per nephrology prescription - continue care as below otherwise; - daily SAT's as tolerated - continue wound care per WCN / RN - continue on bariatric bed - continue to avoid supine position as much as possible - adjust ant-infective's per ID rec's (Ampicillin) - continue bid protonix - continue tube feeds at goal rate as tolerated - continue HD/UF per nephrology team for toxin and volume clearance - continue bowel regimen - Continue to wean supplemental oxygen for O2 sats >92% - Monitor blood pressure closely while optimizing sedation,wean vasopressor support for MAP > 65 mmHg - VAP bundle addressed, aspiration precautions HOB >40 - continue lung protective strategies, permissive hypercapnic acceptable. - continue bronchodilators with routine trach care and pulmonary hygiene per RT - wean per pulmonary driven protocols otherwise - accuchecks with glycemic control per SSI (While critically ill target blood glucose of 140-180 mg/dL; avoid hypoglycemia) - sedation prn for target RASS -1 to -2 - continue enteral nutritional support at goal rate as tolerated - on antibiotics per ID recommendations - follow clinically re: fevers / WBC - Monitor liver function test ,avoid hepatotoxic agents - azotemia per nephrology rec's - Avoid nephrotoxins, renally dose all medications, conservative fluid management - continue to avoid benzodiazepines, reduce the possibility of delirium, - prn analgesia per CPOT score - Maintenance of sleep-wake cycle, avoid delirium - Stress ulcer prophylaxis, Pantoprazole - PT/OT/ROM exercises - Mobility protocols for pressure ulcer prevention - CXR, ABG in am - CBC, CMP in am - Supportive transfusions to keep HgB >7g/dL - Monitor hemodynamics closely - continue other care per attending / other consultants COVID SPECIFIC INTERVENTIONS - s/p steroids: Dexamethasone - completed Remdesivir - monitor inflammatory markers prn - ferritin, D-dimer, CRP, LDH per facility protocol - continue anticoagulation per System Protocol based on d-dimer (on hold due to bleeding) - continue contact and airborne isolation CONDITION: CRITICAL PROGNOSIS: GUARDED CODE STATUS: FULL CODE The high probability of a clinically significant, sudden or life-threatening deterioration of the [respiratory, cardiovascular, hematologic & neurologic] system(s) required my full and direct attention, intervention and personal management. The aggregate critical care time was [37] minutes without overlap. Time includes spent on; [x] Data Review and interpretation [x] Patient assessment and monitoring of vital signs [x] Documentation [x] Medication orders and management He was evaluated in the context of the global COVID-19 pandemic, which necessitated consideration that the patient might be at risk for infection with the virus that causes COVID-19. Institutional protocols and algorithms that pertain to the evaluation of patients at risk for COVID-19 are in a state of rapid change based on information released by regulatory bodies including the CDC and federal and state organizations. These policies and algorithms were followed during the patient's care in the ICU Please note that these policies, procedures and recommendations changed on a rapid basis. Subjective Date of service: 07/31/20 Principal diagnosis: ARF; Septic Shock; COVID-19 PNA; Atrial fibrillation; Obesity Interval history: Patient is seen today for: Ac hypoxemic respiratory failure; COVID-19; Severe Sepsis with shock; Zackery. pneumonia; GIRISH; Elevated liver enzymes; Obesity Seen and examined at bedside; 24hour events reviewed; nursing and respiratory care staff consulted; no adverse overnight events reported to me; resting in bed; remains on MVS; work of breathing very labored overnight and set rate increased; also desaturating and FiO2 increased; no emesis or overt aspiration; on Levophed drip @ 8 marcelino's/min Objective Vital Signs - 12hr 07/31/20 07/31/20 07/31/20 02:30 03:00 03:30 Temperature Pulse Rate 124 H 124 H 124 H Pulse Rate [ From Monitor] Respiratory 25 H 23 25 H Rate Blood Pressure 111/57 117/59 112/57 O2 Sat by Pulse 90 89 91 Oximetry O2 Sat by Pulse Oximetry [ Assessment] 07/31/20 07/31/20 07/31/20 03:55 04:00 04:30 Temperature 99 F Pulse Rate 124 H 123 H 123 H Pulse Rate [ From Monitor] Respiratory 18 20 Rate Blood Pressure 116/51 108/59 110/62 O2 Sat by Pulse 91 94 93 Oximetry O2 Sat by Pulse Oximetry [ Assessment] 07/31/20 07/31/20 07/31/20 05:00 05:30 06:00 Temperature Pulse Rate 123 H 123 H 123 H Pulse Rate [ From Monitor] Respiratory 19 21 20 Rate Blood Pressure 121/63 105/57 113/61 O2 Sat by Pulse 90 96 97 Oximetry O2 Sat by Pulse Oximetry [ Assessment] 07/31/20 07/31/20 07/31/20 06:13 06:30 07:00 Temperature 99.2 F Pulse Rate 123 H 123 H Pulse Rate [ From Monitor] Respiratory 21 22 Rate Blood Pressure 118/62 113/59 O2 Sat by Pulse 95 93 Oximetry O2 Sat by Pulse Oximetry [ Assessment] 07/31/20 07/31/20 07/31/20 07:30 08:00 08:30 Temperature 99.6 F Pulse Rate 124 H 122 H 123 H Pulse Rate [ 123 H From Monitor] Respiratory 27 H 29 H 31 H Rate Blood Pressure 122/63 130/60 97/54 O2 Sat by Pulse 100 100 100 Oximetry O2 Sat by Pulse 100 Oximetry [ Assessment] 07/31/20 07/31/20 07/31/20 09:00 09:30 10:00 Temperature Pulse Rate 123 H 123 H 122 H Pulse Rate [ From Monitor] Respiratory 30 H 30 H 30 H Rate Blood Pressure 100/56 101/57 103/60 O2 Sat by Pulse 100 100 99 Oximetry O2 Sat by Pulse Oximetry [ Assessment] 07/31/20 07/31/20 07/31/20 10:30 11:00 11:30 Temperature Pulse Rate 123 H 124 H 123 H Pulse Rate [ From Monitor] Respiratory 30 H 30 H 26 H Rate Blood Pressure 101/57 98/56 101/56 O2 Sat by Pulse 100 100 96 Oximetry O2 Sat by Pulse Oximetry [ Assessment] 07/31/20 07/31/20 07/31/20 12:00 12:30 12:53 Temperature 98.3 F Pulse Rate 124 H 124 H 124 H Pulse Rate [ 123 H From Monitor] Respiratory 27 H 30 H Rate Blood Pressure 97/53 101/53 101/53 O2 Sat by Pulse 97 97 97 Oximetry O2 Sat by Pulse Oximetry [ Assessment] 07/31/20 07/31/20 07/31/20 13:00 13:30 14:00 Temperature Pulse Rate 124 H 123 H 123 H Pulse Rate [ From Monitor] Respiratory 30 H 30 H 26 H Rate Blood Pressure 99/55 98/51 98/52 O2 Sat by Pulse 98 97 98 Oximetry O2 Sat by Pulse Oximetry [ Assessment] Constitutional: appears uncomfortable, other (morbidly obese, atraumatic, normocephalic, mild resp distress, orally intubated) Eyes: non-icteric ENT: oropharynx moist, other (s/p tracheostomy) Neck: supple, no lymphadenopathy, other (Large , short neck) Effort: mildly labored Ascultation: Bilateral: diminished breath sounds, rhonchi Percussion: Bilateral: not dull Cardiovascular: irregular rhythm, other (S1,S2) Gastrointestinal: normoactive bowel sounds, soft, non-tender, non-distended (protuberant) Integumentary: rash, other (Femoral CVC, Newell catheter) Extremities: pink and warm, pulses normal, no ischemia or petechiae, edema (trace to 1+) Neurologic: non-focal exam (grossly), pupils equal and round, CN II-XII normal, other (unable to assess, sedated) Psychiatric: other (unable to assess, sedated) CBC and BMP: 08/01/20 05:00 08/01/20 05:00 ABG, PT/INR, D-dimer: ABG ABG pH 7.241 (7.320-7.450) L 07/31/20 05:28 POC ABG pCO2 52.8 mmHg (32.0-48.0) H 07/31/20 05:28 ABG pCO2 44.4 mm Hg 07/28/20 14:31 POC ABG pO2 63.3 mmHg (83-108) L 07/31/20 05:28 ABG pO2 68.0 mm Hg (80.0-90.0) L 07/28/20 14:31 POC ABG HCO3 22.2 07/31/20 05:28 ABG O2 Saturation 89.5 (0-100) 07/31/20 05:28 PT/INR, D-dimer PT 15.3 Sec. (12.2-14.9) H 07/24/20 20:40 INR 1.21 (0.87-1.13) H 07/24/20 20:40 D-Dimer 6608.00 ng/mlDDU (0-234) H 07/03/20 14:50 Abnormal lab findings: Abnormal Labs 06/17/20 06/17/20 06/17/20 12:33 12:33 12:33 WBC 19.5 H RBC 5.18 H Hgb 15.5 H Hct MCHC RDW Plt Count Lymph % (Auto) 3.8 L Forrest % (Auto) Lymph # (Auto) 0.7 L Forrest # (Auto) Eos # (Auto) Baso # (Auto) Seg Neutrophils % Seg Neuts % (Manual) 99.0 H Lymphocytes % (Manual) 1.0 L Monocytes % (Manual) Basophils % (Manual) Nucleated RBC % Seg Neutrophils # 18.2 H Seg Neutrophils # Man 19.3 H Lymphocytes # (Manual) 0.2 L Monocytes # (Manual) Eosinophils # (Manual) Basophils # (Manual) PT 16.5 H INR 1.33 H APTT D-Dimer 1025.04 H Heparin Anti-Xa Level ABG pH POC ABG pCO2 POC ABG pO2 ABG pO2 ABG HCO3 ABG O2 Saturation ABG Base Excess ABG Hemoglobin ABG Oxyhemoglobin ABG Sodium ABG Potassium ABG Chloride ABG Glucose Oxyhemoglobin Carboxyhemoglobin Sodium 130 L Potassium 3.4 L Chloride 95.0 L Carbon Dioxide BUN 21 H Creatinine Glucose 137 H POC Glucose Lactic Acid Calcium 7.9 L Phosphorus Magnesium Ferritin Direct Bilirubin AST 84 H ALT 67 H Alkaline Phosphatase Lactate Dehydrogenase 437 H Total Creatine Kinase 310 H C-Reactive Protein 27.90 H Total Protein Albumin 2.9 L Triglycerides Arterial Blood Glucose Arterial Blood Ionized Calcium Urine Creatinine Urine Chloride Vancomycin Trough Coronavirus (PCR) Crossmatch 06/17/20 06/17/20 06/17/20 12:33 12:33 14:48 WBC RBC Hgb Hct MCHC RDW Plt Count Lymph % (Auto) Forrest % (Auto) Lymph # (Auto) Forrest # (Auto) Eos # (Auto) Baso # (Auto) Seg Neutrophils % Seg Neuts % (Manual) Lymphocytes % (Manual) Monocytes % (Manual) Basophils % (Manual) Nucleated RBC % Seg Neutrophils # Seg Neutrophils # Man Lymphocytes # (Manual) Monocytes # (Manual) Eosinophils # (Manual) Basophils # (Manual) PT INR APTT D-Dimer Heparin Anti-Xa Level ABG pH POC ABG pCO2 POC ABG pO2 ABG pO2 ABG HCO3 ABG O2 Saturation ABG Base Excess ABG Hemoglobin ABG Oxyhemoglobin ABG Sodium ABG Potassium ABG Chloride ABG Glucose Oxyhemoglobin Carboxyhemoglobin Sodium Potassium Chloride Carbon Dioxide BUN Creatinine Glucose POC Glucose Lactic Acid 2.50 H* 2.20 H* Calcium Phosphorus Magnesium Ferritin 2297.0 H Direct Bilirubin AST ALT Alkaline Phosphatase Lactate Dehydrogenase Total Creatine Kinase C-Reactive Protein Total Protein Albumin Triglycerides Arterial Blood Glucose Arterial Blood Ionized Calcium Urine Creatinine Urine Chloride Vancomycin Trough Coronavirus (PCR) Crossmatch 06/17/20 06/17/20 06/17/20 14:48 14:48 14:48 WBC RBC Hgb Hct MCHC RDW Plt Count Lymph % (Auto) Forrest % (Auto) Lymph # (Auto) Forrest # (Auto) Eos # (Auto) Baso # (Auto) Seg Neutrophils % Seg Neuts % (Manual) Lymphocytes % (Manual) Monocytes % (Manual) Basophils % (Manual) Nucleated RBC % Seg Neutrophils # Seg Neutrophils # Man Lymphocytes # (Manual) Monocytes # (Manual) Eosinophils # (Manual) Basophils # (Manual) PT INR APTT D-Dimer 939.89 H Heparin Anti-Xa Level ABG pH POC ABG pCO2 POC ABG pO2 ABG pO2 ABG HCO3 ABG O2 Saturation ABG Base Excess ABG Hemoglobin ABG Oxyhemoglobin ABG Sodium ABG Potassium ABG Chloride ABG Glucose Oxyhemoglobin Carboxyhemoglobin Sodium Potassium Chloride Carbon Dioxide BUN Creatinine Glucose 141 H POC Glucose Lactic Acid Calcium Phosphorus Magnesium Ferritin > 2000.0 H Direct Bilirubin AST ALT Alkaline Phosphatase Lactate Dehydrogenase 503 H Total Creatine Kinase C-Reactive Protein 24.70 H Total Protein Albumin Triglycerides Arterial Blood Glucose Arterial Blood Ionized Calcium Urine Creatinine Urine Chloride Vancomycin Trough Coronavirus (PCR) Crossmatch 06/17/20 06/17/20 06/17/20 16:54 19:39 23:43 WBC RBC Hgb Hct MCHC RDW Plt Count Lymph % (Auto) Forrest % (Auto) Lymph # (Auto) Forrest # (Auto) Eos # (Auto) Baso # (Auto) Seg Neutrophils % Seg Neuts % (Manual) Lymphocytes % (Manual) Monocytes % (Manual) Basophils % (Manual) Nucleated RBC % Seg Neutrophils # Seg Neutrophils # Man Lymphocytes # (Manual) Monocytes # (Manual) Eosinophils # (Manual) Basophils # (Manual) PT INR APTT D-Dimer Heparin Anti-Xa Level ABG pH 7.571 H POC ABG pCO2 24.3 L POC ABG pO2 41.6 L ABG pO2 ABG HCO3 ABG O2 Saturation ABG Base Excess ABG Hemoglobin ABG Oxyhemoglobin 84.0 L ABG Sodium 131.0 L ABG Potassium ABG Chloride ABG Glucose 163 H Oxyhemoglobin Carboxyhemoglobin Sodium Potassium Chloride Carbon Dioxide BUN Creatinine Glucose POC Glucose 185 H Lactic Acid 2.10 H* Calcium Phosphorus Magnesium Ferritin Direct Bilirubin AST ALT Alkaline Phosphatase Lactate Dehydrogenase Total Creatine Kinase C-Reactive Protein Total Protein Albumin Triglycerides Arterial Blood Glucose 163 H Arterial Blood Ionized Calcium 4.4 L Urine Creatinine Urine Chloride Vancomycin Trough Coronavirus (PCR) Crossmatch 06/18/20 06/18/20 06/18/20 00:17 00:23 03:55 WBC RBC Hgb Hct MCHC RDW Plt Count Lymph % (Auto) Forrest % (Auto) Lymph # (Auto) Forrest # (Auto) Eos # (Auto) Baso # (Auto) Seg Neutrophils % Seg Neuts % (Manual) Lymphocytes % (Manual) Monocytes % (Manual) Basophils % (Manual) Nucleated RBC % Seg Neutrophils # Seg Neutrophils # Man Lymphocytes # (Manual) Monocytes # (Manual) Eosinophils # (Manual) Basophils # (Manual) PT INR APTT D-Dimer Heparin Anti-Xa Level ABG pH POC ABG pCO2 POC ABG pO2 56.5 L 48.3 L ABG pO2 ABG HCO3 ABG O2 Saturation ABG Base Excess ABG Hemoglobin ABG Oxyhemoglobin 86.3 L 81.7 L ABG Sodium 132.9 L 131.0 L ABG Potassium ABG Chloride ABG Glucose 189 H 161 H Oxyhemoglobin Carboxyhemoglobin 0.4 L Sodium Potassium Chloride Carbon Dioxide BUN Creatinine Glucose POC Glucose Lactic Acid 3.80 H* Calcium Phosphorus Magnesium Ferritin Direct Bilirubin AST ALT Alkaline Phosphatase Lactate Dehydrogenase Total Creatine Kinase C-Reactive Protein Total Protein Albumin Triglycerides Arterial Blood Glucose 189 H 161 H Arterial Blood Ionized Calcium 4.3 L 4.2 L Urine Creatinine Urine Chloride Vancomycin Trough Coronavirus (PCR) Crossmatch 06/18/20 06/18/20 06/18/20 05:39 05:39 05:39 WBC 26.2 H RBC Hgb Hct MCHC RDW Plt Count Lymph % (Auto) Forrest % (Auto) Lymph # (Auto) Forrest # (Auto) Eos # (Auto) Baso # (Auto) Seg Neutrophils % Seg Neuts % (Manual) 90.0 H Lymphocytes % (Manual) 5.0 L Monocytes % (Manual) Basophils % (Manual) Nucleated RBC % Seg Neutrophils # Seg Neutrophils # Man 23.6 H Lymphocytes # (Manual) Monocytes # (Manual) 1.3 H Eosinophils # (Manual) Basophils # (Manual) PT INR APTT D-Dimer Heparin Anti-Xa Level ABG pH POC ABG pCO2 POC ABG pO2 ABG pO2 ABG HCO3 ABG O2 Saturation ABG Base Excess ABG Hemoglobin ABG Oxyhemoglobin ABG Sodium ABG Potassium ABG Chloride ABG Glucose Oxyhemoglobin Carboxyhemoglobin Sodium 135 L Potassium Chloride 97.5 L Carbon Dioxide 21 L BUN 39 H Creatinine 1.7 H D Glucose 168 H POC Glucose Lactic Acid 3.40 H* Calcium 7.2 L Phosphorus Magnesium Ferritin Direct Bilirubin AST ALT Alkaline Phosphatase Lactate Dehydrogenase Total Creatine Kinase C-Reactive Protein Total Protein Albumin Triglycerides Arterial Blood Glucose Arterial Blood Ionized Calcium Urine Creatinine Urine Chloride Vancomycin Trough Coronavirus (PCR) Crossmatch 06/18/20 06/18/20 06/18/20 07:24 09:00 10:10 WBC RBC Hgb Hct MCHC RDW Plt Count Lymph % (Auto) Forrest % (Auto) Lymph # (Auto) Forrest # (Auto) Eos # (Auto) Baso # (Auto) Seg Neutrophils % Seg Neuts % (Manual) Lymphocytes % (Manual) Monocytes % (Manual) Basophils % (Manual) Nucleated RBC % Seg Neutrophils # Seg Neutrophils # Man Lymphocytes # (Manual) Monocytes # (Manual) Eosinophils # (Manual) Basophils # (Manual) PT INR APTT D-Dimer Heparin Anti-Xa Level ABG pH POC ABG pCO2 POC ABG pO2 ABG pO2 ABG HCO3 ABG O2 Saturation ABG Base Excess ABG Hemoglobin ABG Oxyhemoglobin ABG Sodium ABG Potassium ABG Chloride ABG Glucose Oxyhemoglobin Carboxyhemoglobin Sodium Potassium Chloride Carbon Dioxide BUN Creatinine Glucose POC Glucose Lactic Acid 2.90 H* 3.20 H* Calcium Phosphorus Magnesium Ferritin Direct Bilirubin AST ALT Alkaline Phosphatase Lactate Dehydrogenase Total Creatine Kinase C-Reactive Protein Total Protein Albumin Triglycerides Arterial Blood Glucose Arterial Blood Ionized Calcium Urine Creatinine Urine Chloride Vancomycin Trough Coronavirus (PCR) Positive A Crossmatch 06/18/20 06/18/20 06/18/20 11:58 14:43 15:00 WBC RBC Hgb Hct MCHC RDW Plt Count Lymph % (Auto) Forrest % (Auto) Lymph # (Auto) Forrest # (Auto) Eos # (Auto) Baso # (Auto) Seg Neutrophils % Seg Neuts % (Manual) Lymphocytes % (Manual) Monocytes % (Manual) Basophils % (Manual) Nucleated RBC % Seg Neutrophils # Seg Neutrophils # Man Lymphocytes # (Manual) Monocytes # (Manual) Eosinophils # (Manual) Basophils # (Manual) PT INR APTT D-Dimer Heparin Anti-Xa Level ABG pH 7.303 L POC ABG pCO2 POC ABG pO2 82.3 L ABG pO2 ABG HCO3 ABG O2 Saturation ABG Base Excess ABG Hemoglobin ABG Oxyhemoglobin ABG Sodium 135.3 L ABG Potassium ABG Chloride ABG Glucose 215 H Oxyhemoglobin Carboxyhemoglobin 0.3 L Sodium Potassium Chloride Carbon Dioxide BUN Creatinine Glucose POC Glucose 209 H Lactic Acid Calcium Phosphorus Magnesium Ferritin Direct Bilirubin AST ALT Alkaline Phosphatase Lactate Dehydrogenase Total Creatine Kinase C-Reactive Protein Total Protein Albumin Triglycerides Arterial Blood Glucose 215 H Arterial Blood Ionized Calcium 4.2 L Urine Creatinine 192.4 H Urine Chloride 31.1 L Vancomycin Trough Coronavirus (PCR) Crossmatch 06/18/20 06/18/20 06/18/20 17:16 19:44 20:33 WBC RBC Hgb Hct MCHC RDW Plt Count Lymph % (Auto) Forrest % (Auto) Lymph # (Auto) Forrest # (Auto) Eos # (Auto) Baso # (Auto) Seg Neutrophils % Seg Neuts % (Manual) Lymphocytes % (Manual) Monocytes % (Manual) Basophils % (Manual) Nucleated RBC % Seg Neutrophils # Seg Neutrophils # Man Lymphocytes # (Manual) Monocytes # (Manual) Eosinophils # (Manual) Basophils # (Manual) PT INR APTT D-Dimer Heparin Anti-Xa Level ABG pH POC ABG pCO2 POC ABG pO2 ABG pO2 ABG HCO3 ABG O2 Saturation ABG Base Excess ABG Hemoglobin ABG Oxyhemoglobin ABG Sodium ABG Potassium ABG Chloride ABG Glucose Oxyhemoglobin Carboxyhemoglobin Sodium Potassium Chloride Carbon Dioxide BUN Creatinine Glucose POC Glucose 182 H Lactic Acid 3.00 H* Calcium Phosphorus Magnesium 2.70 H Ferritin Direct Bilirubin AST ALT Alkaline Phosphatase Lactate Dehydrogenase Total Creatine Kinase C-Reactive Protein Total Protein Albumin Triglycerides Arterial Blood Glucose Arterial Blood Ionized Calcium Urine Creatinine Urine Chloride Vancomycin Trough Coronavirus (PCR) Crossmatch 06/18/20 06/19/20 06/19/20 23:43 04:00 04:00 WBC 31.6 H RBC Hgb Hct MCHC RDW Plt Count Lymph % (Auto) Forrest % (Auto) Lymph # (Auto) Forrest # (Auto) Eos # (Auto) Baso # (Auto) Seg Neutrophils % Seg Neuts % (Manual) 98.0 H Lymphocytes % (Manual) 0.5 L Monocytes % (Manual) Basophils % (Manual) Nucleated RBC % Seg Neutrophils # Seg Neutrophils # Man 31.0 H Lymphocytes # (Manual) 0.2 L Monocytes # (Manual) Eosinophils # (Manual) Basophils # (Manual) PT INR APTT D-Dimer Heparin Anti-Xa Level ABG pH POC ABG pCO2 POC ABG pO2 ABG pO2 ABG HCO3 ABG O2 Saturation ABG Base Excess ABG Hemoglobin ABG Oxyhemoglobin ABG Sodium ABG Potassium ABG Chloride ABG Glucose Oxyhemoglobin Carboxyhemoglobin Sodium Potassium Chloride Carbon Dioxide BUN 56 H Creatinine 1.6 H Glucose 176 H POC Glucose 149 H Lactic Acid Calcium 7.0 L Phosphorus Magnesium Ferritin Direct Bilirubin AST 244 H ALT 159 H Alkaline Phosphatase Lactate Dehydrogenase Total Creatine Kinase C-Reactive Protein Total Protein 4.9 L D Albumin 2.5 L Triglycerides Arterial Blood Glucose Arterial Blood Ionized Calcium Urine Creatinine Urine Chloride Vancomycin Trough Coronavirus (PCR) Crossmatch 06/19/20 06/19/20 06/19/20 04:00 05:44 11:42 WBC RBC Hgb Hct MCHC RDW Plt Count Lymph % (Auto) Forrest % (Auto) Lymph # (Auto) Forrest # (Auto) Eos # (Auto) Baso # (Auto) Seg Neutrophils % Seg Neuts % (Manual) Lymphocytes % (Manual) Monocytes % (Manual) Basophils % (Manual) Nucleated RBC % Seg Neutrophils # Seg Neutrophils # Man Lymphocytes # (Manual) Monocytes # (Manual) Eosinophils # (Manual) Basophils # (Manual) PT INR APTT D-Dimer Heparin Anti-Xa Level ABG pH 7.265 L POC ABG pCO2 51.8 H POC ABG pO2 65.1 L ABG pO2 ABG HCO3 ABG O2 Saturation ABG Base Excess ABG Hemoglobin ABG Oxyhemoglobin ABG Sodium ABG Potassium ABG Chloride ABG Glucose 184 H Oxyhemoglobin Carboxyhemoglobin Sodium Potassium Chloride Carbon Dioxide BUN Creatinine Glucose POC Glucose 156 H 191 H Lactic Acid Calcium Phosphorus Magnesium Ferritin Direct Bilirubin AST ALT Alkaline Phosphatase Lactate Dehydrogenase Total Creatine Kinase C-Reactive Protein Total Protein Albumin Triglycerides Arterial Blood Glucose 184 H Arterial Blood Ionized Calcium 4.3 L Urine Creatinine Urine Chloride Vancomycin Trough Coronavirus (PCR) Crossmatch 06/19/20 06/19/20 06/19/20 12:30 17:16 18:36 WBC RBC Hgb Hct MCHC RDW Plt Count Lymph % (Auto) Forrest % (Auto) Lymph # (Auto) Forrest # (Auto) Eos # (Auto) Baso # (Auto) Seg Neutrophils % Seg Neuts % (Manual) Lymphocytes % (Manual) Monocytes % (Manual) Basophils % (Manual) Nucleated RBC % Seg Neutrophils # Seg Neutrophils # Man Lymphocytes # (Manual) Monocytes # (Manual) Eosinophils # (Manual) Basophils # (Manual) PT 16.4 H INR 1.32 H APTT D-Dimer Heparin Anti-Xa Level ABG pH 7.088 L POC ABG pCO2 78.1 H POC ABG pO2 208.3 H ABG pO2 ABG HCO3 ABG O2 Saturation ABG Base Excess ABG Hemoglobin ABG Oxyhemoglobin 98.3 H ABG Sodium ABG Potassium 5.0 H ABG Chloride ABG Glucose 182 H Oxyhemoglobin Carboxyhemoglobin 0.4 L Sodium Potassium Chloride Carbon Dioxide BUN Creatinine Glucose POC Glucose 154 H Lactic Acid Calcium Phosphorus Magnesium Ferritin Direct Bilirubin AST ALT Alkaline Phosphatase Lactate Dehydrogenase Total Creatine Kinase C-Reactive Protein Total Protein Albumin Triglycerides Arterial Blood Glucose 182 H Arterial Blood Ionized Calcium 4.3 L Urine Creatinine Urine Chloride Vancomycin Trough Coronavirus (PCR) Crossmatch 06/19/20 06/20/20 06/20/20 23:32 03:00 05:19 WBC RBC Hgb Hct MCHC RDW Plt Count Lymph % (Auto) Forrest % (Auto) Lymph # (Auto) Forrest # (Auto) Eos # (Auto) Baso # (Auto) Seg Neutrophils % Seg Neuts % (Manual) Lymphocytes % (Manual) Monocytes % (Manual) Basophils % (Manual) Nucleated RBC % Seg Neutrophils # Seg Neutrophils # Man Lymphocytes # (Manual) Monocytes # (Manual) Eosinophils # (Manual) Basophils # (Manual) PT INR APTT D-Dimer Heparin Anti-Xa Level 0.77 H ABG pH POC ABG pCO2 POC ABG pO2 ABG pO2 ABG HCO3 ABG O2 Saturation ABG Base Excess ABG Hemoglobin ABG Oxyhemoglobin ABG Sodium ABG Potassium ABG Chloride ABG Glucose Oxyhemoglobin Carboxyhemoglobin Sodium Potassium Chloride Carbon Dioxide BUN Creatinine Glucose POC Glucose 201 H 190 H Lactic Acid Calcium Phosphorus Magnesium Ferritin Direct Bilirubin AST ALT Alkaline Phosphatase Lactate Dehydrogenase Total Creatine Kinase C-Reactive Protein Total Protein Albumin Triglycerides Arterial Blood Glucose Arterial Blood Ionized Calcium Urine Creatinine Urine Chloride Vancomycin Trough Coronavirus (PCR) Crossmatch 06/20/20 06/20/20 06/20/20 08:25 08:25 11:36 WBC RBC Hgb Hct MCHC RDW Plt Count Lymph % (Auto) Forrest % (Auto) Lymph # (Auto) Forrest # (Auto) Eos # (Auto) Baso # (Auto) Seg Neutrophils % Seg Neuts % (Manual) Lymphocytes % (Manual) Monocytes % (Manual) Basophils % (Manual) Nucleated RBC % Seg Neutrophils # Seg Neutrophils # Man Lymphocytes # (Manual) Monocytes # (Manual) Eosinophils # (Manual) Basophils # (Manual) PT INR APTT D-Dimer Heparin Anti-Xa Level ABG pH POC ABG pCO2 POC ABG pO2 ABG pO2 ABG HCO3 ABG O2 Saturation ABG Base Excess ABG Hemoglobin ABG Oxyhemoglobin ABG Sodium ABG Potassium ABG Chloride ABG Glucose Oxyhemoglobin Carboxyhemoglobin Sodium 135 L Potassium 5.4 H Chloride 109.2 H Carbon Dioxide 19 L BUN 68 H Creatinine 2.5 H D Glucose 201 H POC Glucose 184 H Lactic Acid Calcium 5.5 L* D Phosphorus Magnesium Ferritin Direct Bilirubin AST 123 H ALT 86 H Alkaline Phosphatase Lactate Dehydrogenase Total Creatine Kinase C-Reactive Protein Total Protein 4.6 L Albumin 1.5 L Triglycerides Arterial Blood Glucose Arterial Blood Ionized Calcium Urine Creatinine Urine Chloride Vancomycin Trough 22.7 H Coronavirus (PCR) Crossmatch 06/20/20 06/20/20 06/20/20 11:40 17:28 20:00 WBC RBC Hgb Hct MCHC RDW Plt Count Lymph % (Auto) Forrest % (Auto) Lymph # (Auto) Forrest # (Auto) Eos # (Auto) Baso # (Auto) Seg Neutrophils % Seg Neuts % (Manual) Lymphocytes % (Manual) Monocytes % (Manual) Basophils % (Manual) Nucleated RBC % Seg Neutrophils # Seg Neutrophils # Man Lymphocytes # (Manual) Monocytes # (Manual) Eosinophils # (Manual) Basophils # (Manual) PT INR APTT D-Dimer Heparin Anti-Xa Level 0.89 H ABG pH 7.099 L POC ABG pCO2 61.1 H POC ABG pO2 ABG pO2 ABG HCO3 ABG O2 Saturation ABG Base Excess ABG Hemoglobin ABG Oxyhemoglobin ABG Sodium ABG Potassium 5.0 H ABG Chloride 111.0 H ABG Glucose 200 H Oxyhemoglobin Carboxyhemoglobin 0.4 L Sodium Potassium Chloride Carbon Dioxide BUN Creatinine Glucose POC Glucose 165 H Lactic Acid Calcium Phosphorus Magnesium Ferritin Direct Bilirubin AST ALT Alkaline Phosphatase Lactate Dehydrogenase Total Creatine Kinase C-Reactive Protein Total Protein Albumin Triglycerides Arterial Blood Glucose 200 H Arterial Blood Ionized Calcium 4.2 L Urine Creatinine Urine Chloride Vancomycin Trough Coronavirus (PCR) Crossmatch 06/20/20 06/21/20 06/21/20 23:29 05:00 05:20 WBC RBC Hgb Hct MCHC RDW Plt Count Lymph % (Auto) [place] % (Auto) Lymph # (Auto) [place] # (Auto) Eos # (Auto) Baso # (Auto) Seg Neutrophils % Seg Neuts % (Manual) Lymphocytes % (Manual) Monocytes % (Manual) Basophils % (Manual) Nucleated RBC % Seg Neutrophils # Seg Neutrophils # Man Lymphocytes # (Manual) Monocytes # (Manual) Eosinophils # (Manual) Basophils # (Manual) PT INR APTT D-Dimer Heparin Anti-Xa Level ABG pH POC ABG pCO2 POC ABG pO2 ABG pO2 ABG HCO3 ABG O2 Saturation ABG Base Excess ABG Hemoglobin ABG Oxyhemoglobin ABG Sodium ABG Potassium ABG Chloride ABG Glucose Oxyhemoglobin Carboxyhemoglobin Sodium Potassium Chloride 112.0 H Carbon Dioxide 20 L BUN 92 H Creatinine 3.9 H D Glucose 214 H POC Glucose 145 H 191 H Lactic Acid Calcium 6.5 L D Phosphorus Magnesium Ferritin Direct Bilirubin AST 98 H ALT 84 H Alkaline Phosphatase Lactate Dehydrogenase Total Creatine Kinase C-Reactive Protein Total Protein 4.6 L Albumin 2.1 L Triglycerides 180 H Arterial Blood Glucose Arterial Blood Ionized Calcium Urine Creatinine Urine Chloride Vancomycin Trough Coronavirus (PCR) Crossmatch 06/21/20 06/21/20 06/21/20 08:56 11:12 12:43 WBC RBC Hgb Hct MCHC RDW Plt Count Lymph % (Auto) [place] % (Auto) Lymph # (Auto) [place] # (Auto) Eos # (Auto) Baso # (Auto) Seg Neutrophils % Seg Neuts % (Manual) Lymphocytes % (Manual) Monocytes % (Manual) Basophils % (Manual) Nucleated RBC % Seg Neutrophils # Seg Neutrophils # Man Lymphocytes # (Manual) Monocytes # (Manual) Eosinophils # (Manual) Basophils # (Manual) PT INR APTT D-Dimer Heparin Anti-Xa Level 0.28 L ABG pH 7.184 L POC ABG pCO2 48.3 H POC ABG pO2 172.1 H ABG pO2 ABG HCO3 ABG O2 Saturation ABG Base Excess ABG Hemoglobin ABG Oxyhemoglobin 98.7 H ABG Sodium ABG Potassium 4.9 H ABG Chloride 112.0 H ABG Glucose 196 H Oxyhemoglobin Carboxyhemoglobin 0.2 L Sodium Potassium Chloride Carbon Dioxide BUN Creatinine Glucose POC Glucose 177 H Lactic Acid Calcium Phosphorus Magnesium Ferritin Direct Bilirubin AST ALT Alkaline Phosphatase Lactate Dehydrogenase Total Creatine Kinase C-Reactive Protein Total Protein Albumin Triglycerides Arterial Blood Glucose 196 H Arterial Blood Ionized Calcium 4.1 L Urine Creatinine Urine Chloride Vancomycin Trough Coronavirus (PCR) Crossmatch 06/21/20 06/21/20 06/22/20 16:31 Unknown 00:12 WBC RBC Hgb Hct MCHC RDW Plt Count Lymph % (Auto) [place] % (Auto) Lymph # (Auto) [place] # (Auto) Eos # (Auto) Baso # (Auto) Seg Neutrophils % Seg Neuts % (Manual) Lymphocytes % (Manual) Monocytes % (Manual) Basophils % (Manual) Nucleated RBC % Seg Neutrophils # Seg Neutrophils # Man Lymphocytes # (Manual) Monocytes # (Manual) Eosinophils # (Manual) Basophils # (Manual) PT INR APTT D-Dimer Heparin Anti-Xa Level 0.78 H ABG pH POC ABG pCO2 POC ABG pO2 ABG pO2 ABG HCO3 ABG O2 Saturation ABG Base Excess ABG Hemoglobin ABG Oxyhemoglobin ABG Sodium ABG Potassium ABG Chloride ABG Glucose Oxyhemoglobin Carboxyhemoglobin Sodium Potassium Chloride Carbon Dioxide BUN Creatinine Glucose POC Glucose 150 H 173 H Lactic Acid Calcium Phosphorus Magnesium Ferritin Direct Bilirubin AST ALT Alkaline Phosphatase Lactate Dehydrogenase Total Creatine Kinase C-Reactive Protein Total Protein Albumin Triglycerides Arterial Blood Glucose Arterial Blood Ionized Calcium Urine Creatinine Urine Chloride Vancomycin Trough Coronavirus (PCR) Crossmatch 06/22/20 06/22/20 06/22/20 04:00 05:04 05:30 WBC 33.9 H RBC Hgb 11.7 L Hct 35.2 L MCHC RDW 15.8 H Plt Count Lymph % (Auto) [place] % (Auto) Lymph # (Auto) [place] # (Auto) Eos # (Auto) Baso # (Auto) Seg Neutrophils % Seg Neuts % (Manual) 93.0 H Lymphocytes % (Manual) 5.0 L Monocytes % (Manual) Basophils % (Manual) Nucleated RBC % Seg Neutrophils # Seg Neutrophils # Man 31.5 H Lymphocytes # (Manual) Monocytes # (Manual) Eosinophils # (Manual) Basophils # (Manual) PT INR APTT D-Dimer Heparin Anti-Xa Level ABG pH 7.169 L POC ABG pCO2 POC ABG pO2 ABG pO2 ABG HCO3 ABG O2 Saturation ABG Base Excess ABG Hemoglobin ABG Oxyhemoglobin ABG Sodium ABG Potassium 5.1 H ABG Chloride 112.0 H ABG Glucose 186 H Oxyhemoglobin Carboxyhemoglobin 0.3 L Sodium Potassium Chloride Carbon Dioxide BUN Creatinine Glucose POC Glucose 161 H Lactic Acid Calcium Phosphorus Magnesium Ferritin Direct Bilirubin AST ALT Alkaline Phosphatase Lactate Dehydrogenase Total Creatine Kinase C-Reactive Protein Total Protein Albumin Triglycerides Arterial Blood Glucose 186 H Arterial Blood Ionized Calcium 4.1 L Urine Creatinine Urine Chloride Vancomycin Trough Coronavirus (PCR) Crossmatch 06/22/20 06/22/20 06/22/20 05:30 11:39 13:27 WBC RBC Hgb Hct MCHC RDW Plt Count Lymph % (Auto) [place] % (Auto) Lymph # (Auto) [place] # (Auto) Eos # (Auto) Baso # (Auto) Seg Neutrophils % Seg Neuts % (Manual) Lymphocytes % (Manual) Monocytes % (Manual) Basophils % (Manual) Nucleated RBC % Seg Neutrophils # Seg Neutrophils # Man Lymphocytes # (Manual) Monocytes # (Manual) Eosinophils # (Manual) Basophils # (Manual) PT INR APTT D-Dimer Heparin Anti-Xa Level ABG pH POC ABG pCO2 POC ABG pO2 ABG pO2 ABG HCO3 ABG O2 Saturation ABG Base Excess ABG Hemoglobin ABG Oxyhemoglobin ABG Sodium ABG Potassium ABG Chloride ABG Glucose Oxyhemoglobin Carboxyhemoglobin Sodium Potassium 5.7 H Chloride 111.3 H Carbon Dioxide 18 L BUN 112 H Creatinine 5.0 H Glucose 173 H POC Glucose 172 H 176 H Lactic Acid Calcium 6.7 L Phosphorus Magnesium Ferritin Direct Bilirubin AST ALT Alkaline Phosphatase Lactate Dehydrogenase Total Creatine Kinase C-Reactive Protein Total Protein Albumin Triglycerides Arterial Blood Glucose Arterial Blood Ionized Calcium Urine Creatinine Urine Chloride Vancomycin Trough Coronavirus (PCR) Crossmatch 06/22/20 06/22/20 06/22/20 14:37 17:00 17:40 WBC RBC Hgb Hct MCHC RDW Plt Count Lymph % (Auto) [place] % (Auto) Lymph # (Auto) [place] # (Auto) Eos # (Auto) Baso # (Auto) Seg Neutrophils % Seg Neuts % (Manual) Lymphocytes % (Manual) Monocytes % (Manual) Basophils % (Manual) Nucleated RBC % Seg Neutrophils # Seg Neutrophils # Man Lymphocytes # (Manual) Monocytes # (Manual) Eosinophils # (Manual) Basophils # (Manual) PT INR APTT D-Dimer Heparin Anti-Xa Level 1.32 H ABG pH POC ABG pCO2 POC ABG pO2 ABG pO2 ABG HCO3 ABG O2 Saturation ABG Base Excess ABG Hemoglobin ABG Oxyhemoglobin ABG Sodium ABG Potassium ABG Chloride ABG Glucose Oxyhemoglobin Carboxyhemoglobin Sodium Potassium Chloride Carbon Dioxide BUN Creatinine Glucose POC Glucose 171 H Lactic Acid Calcium Phosphorus Magnesium Ferritin Direct Bilirubin AST ALT Alkaline Phosphatase Lactate Dehydrogenase Total Creatine Kinase C-Reactive Protein 5.30 H Total Protein Albumin Triglycerides Arterial Blood Glucose Arterial Blood Ionized Calcium Urine Creatinine Urine Chloride Vancomycin Trough Coronavirus (PCR) Crossmatch 06/22/20 06/23/20 06/23/20 23:36 02:13 02:41 WBC RBC Hgb Hct MCHC RDW Plt Count Lymph % (Auto) [place] % (Auto) Lymph # (Auto) [place] # (Auto) Eos # (Auto) Baso # (Auto) Seg Neutrophils % Seg Neuts % (Manual) Lymphocytes % (Manual) Monocytes % (Manual) Basophils % (Manual) Nucleated RBC % Seg Neutrophils # Seg Neutrophils # Man Lymphocytes # (Manual) Monocytes # (Manual) Eosinophils # (Manual) Basophils # (Manual) PT INR APTT D-Dimer Heparin Anti-Xa Level 0.21 L ABG pH 7.318 L POC ABG pCO2 POC ABG pO2 157.5 H ABG pO2 ABG HCO3 ABG O2 Saturation ABG Base Excess ABG Hemoglobin ABG Oxyhemoglobin ABG Sodium 135.6 L ABG Potassium 4.6 H ABG Chloride 110.0 H ABG Glucose 169 H Oxyhemoglobin Carboxyhemoglobin Sodium Potassium Chloride Carbon Dioxide BUN Creatinine Glucose POC Glucose 155 H Lactic Acid Calcium Phosphorus Magnesium Ferritin Direct Bilirubin AST ALT Alkaline Phosphatase Lactate Dehydrogenase Total Creatine Kinase C-Reactive Protein Total Protein Albumin Triglycerides Arterial Blood Glucose 169 H Arterial Blood Ionized Calcium Urine Creatinine Urine Chloride Vancomycin Trough Coronavirus (PCR) Crossmatch 0206/23/20 06/23/20 04:00 04:00 05:24 WBC 27.4 H RBC Hgb 11.3 L Hct 33.8 L MCHC RDW Plt Count Lymph % (Auto) [place] % (Auto) Lymph # (Auto) [place] # (Auto) Eos # (Auto) Baso # (Auto) Seg Neutrophils % Seg Neuts % (Manual) 93.0 H Lymphocytes % (Manual) 1.0 L Monocytes % (Manual) Basophils % (Manual) Nucleated RBC % 1.0 H Seg Neutrophils # Seg Neutrophils # Man 25.5 H Lymphocytes # (Manual) 0.3 L Monocytes # (Manual) 1.1 H Eosinophils # (Manual) Basophils # (Manual) PT INR APTT D-Dimer Heparin Anti-Xa Level ABG pH POC ABG pCO2 POC ABG pO2 ABG pO2 ABG HCO3 ABG O2 Saturation ABG Base Excess ABG Hemoglobin ABG Oxyhemoglobin ABG Sodium ABG Potassium ABG Chloride ABG Glucose Oxyhemoglobin Carboxyhemoglobin Sodium Potassium Chloride 107.6 H Carbon Dioxide 20 L BUN 100 H Creatinine 4.7 H Glucose 168 H POC Glucose 151 H Lactic Acid Calcium Phosphorus Magnesium Ferritin Direct Bilirubin AST ALT Alkaline Phosphatase Lactate Dehydrogenase Total Creatine Kinase C-Reactive Protein Total Protein Albumin Triglycerides Arterial Blood Glucose Arterial Blood Ionized Calcium Urine Creatinine Urine Chloride Vancomycin Trough Coronavirus (PCR) Crossmatch 06/23/20 06/23/20 06/23/20 11:30 17:18 23:50 WBC RBC Hgb Hct MCHC RDW Plt Count Lymph % (Auto) [place] % (Auto) Lymph # (Auto) [place] # (Auto) Eos # (Auto) Baso # (Auto) Seg Neutrophils % Seg Neuts % (Manual) Lymphocytes % (Manual) Monocytes % (Manual) Basophils % (Manual) Nucleated RBC % Seg Neutrophils # Seg Neutrophils # Man Lymphocytes # (Manual) Monocytes # (Manual) Eosinophils # (Manual) Basophils # (Manual) PT INR APTT D-Dimer Heparin Anti-Xa Level ABG pH POC ABG pCO2 POC ABG pO2 ABG pO2 ABG HCO3 ABG O2 Saturation ABG Base Excess ABG Hemoglobin ABG Oxyhemoglobin ABG Sodium ABG Potassium ABG Chloride ABG Glucose Oxyhemoglobin Carboxyhemoglobin Sodium Potassium Chloride Carbon Dioxide BUN Creatinine Glucose POC Glucose 157 H 156 H 162 H Lactic Acid Calcium Phosphorus Magnesium Ferritin Direct Bilirubin AST ALT Alkaline Phosphatase Lactate Dehydrogenase Total Creatine Kinase C-Reactive Protein Total Protein Albumin Triglycerides Arterial Blood Glucose Arterial Blood Ionized Calcium Urine Creatinine Urine Chloride Vancomycin Trough Coronavirus (PCR) Crossmatch 06/24/20 06/24/20 06/24/20 04:41 05:57 06:30 WBC 34.3 H RBC Hgb 10.9 L Hct 32.6 L MCHC RDW Plt Count Lymph % (Auto) 2.0 L [place] % (Auto) Lymph # (Auto) 0.7 L [place] # (Auto) 1.2 H Eos # (Auto) Baso # (Auto) Seg Neutrophils % Seg Neuts % (Manual) 96.0 H Lymphocytes % (Manual) 3.0 L Monocytes % (Manual) Basophils % (Manual) Nucleated RBC % Seg Neutrophils # 32.3 H Seg Neutrophils # Man 32.9 H Lymphocytes # (Manual) 1.0 L Monocytes # (Manual) Eosinophils # (Manual) Basophils # (Manual) PT INR APTT D-Dimer Heparin Anti-Xa Level ABG pH POC ABG pCO2 POC ABG pO2 71.1 L ABG pO2 ABG HCO3 ABG O2 Saturation ABG Base Excess ABG Hemoglobin ABG Oxyhemoglobin 92.4 L ABG Sodium 115.6 L ABG Potassium ABG Chloride ABG Glucose 159 H Oxyhemoglobin Carboxyhemoglobin Sodium Potassium Chloride Carbon Dioxide BUN Creatinine Glucose POC Glucose 143 H Lactic Acid Calcium Phosphorus Magnesium Ferritin Direct Bilirubin AST ALT Alkaline Phosphatase Lactate Dehydrogenase Total Creatine Kinase C-Reactive Protein Total Protein Albumin Triglycerides Arterial Blood Glucose 159 H Arterial Blood Ionized Calcium 4.2 L Urine Creatinine Urine Chloride Vancomycin Trough Coronavirus (PCR) Crossmatch 06/24/20 06/24/20 06/24/20 07:03 09:37 11:56 WBC RBC Hgb Hct MCHC RDW Plt Count Lymph % (Auto) [place] % (Auto) Lymph # (Auto) [place] # (Auto) Eos # (Auto) Baso # (Auto) Seg Neutrophils % Seg Neuts % (Manual) Lymphocytes % (Manual) Monocytes % (Manual) Basophils % (Manual) Nucleated RBC % Seg Neutrophils # Seg Neutrophils # Man Lymphocytes # (Manual) Monocytes # (Manual) Eosinophils # (Manual) Basophils # (Manual) PT INR APTT D-Dimer Heparin Anti-Xa Level 0.26 L ABG pH POC ABG pCO2 POC ABG pO2 ABG pO2 ABG HCO3 ABG O2 Saturation ABG Base Excess ABG Hemoglobin ABG Oxyhemoglobin ABG Sodium ABG Potassium ABG Chloride ABG Glucose Oxyhemoglobin Carboxyhemoglobin Sodium Potassium 5.1 H Chloride Carbon Dioxide BUN 103 H Creatinine 5.0 H Glucose 163 H POC Glucose 149 H Lactic Acid Calcium 7.6 L Phosphorus Magnesium Ferritin Direct Bilirubin AST ALT Alkaline Phosphatase Lactate Dehydrogenase Total Creatine Kinase C-Reactive Protein Total Protein Albumin Triglycerides Arterial Blood Glucose Arterial Blood Ionized Calcium Urine Creatinine Urine Chloride Vancomycin Trough Coronavirus (PCR) Crossmatch 06/24/20 06/25/20 06/25/20 18:09 01:05 03:00 WBC RBC Hgb 10.6 L Hct 32.1 L MCHC RDW Plt Count Lymph % (Auto) [place] % (Auto) Lymph # (Auto) [place] # (Auto) Eos # (Auto) Baso # (Auto) Seg Neutrophils % Seg Neuts % (Manual) Lymphocytes % (Manual) Monocytes % (Manual) Basophils % (Manual) Nucleated RBC % Seg Neutrophils # Seg Neutrophils # Man Lymphocytes # (Manual) Monocytes # (Manual) Eosinophils # (Manual) Basophils # (Manual) PT INR APTT D-Dimer Heparin Anti-Xa Level ABG pH POC ABG pCO2 POC ABG pO2 ABG pO2 ABG HCO3 ABG O2 Saturation ABG Base Excess ABG Hemoglobin ABG Oxyhemoglobin ABG Sodium ABG Potassium ABG Chloride ABG Glucose Oxyhemoglobin Carboxyhemoglobin Sodium Potassium Chloride Carbon Dioxide BUN Creatinine Glucose POC Glucose 141 H 137 H Lactic Acid Calcium Phosphorus Magnesium Ferritin Direct Bilirubin AST ALT Alkaline Phosphatase Lactate Dehydrogenase Total Creatine Kinase C-Reactive Protein Total Protein Albumin Triglycerides Arterial Blood Glucose Arterial Blood Ionized Calcium Urine Creatinine Urine Chloride Vancomycin Trough Coronavirus (PCR) Crossmatch 06/25/20 06/25/20 06/25/20 03:48 05:17 12:08 WBC RBC Hgb Hct MCHC RDW Plt Count Lymph % (Auto) [place] % (Auto) Lymph # (Auto) [place] # (Auto) Eos # (Auto) Baso # (Auto) Seg Neutrophils % Seg Neuts % (Manual) Lymphocytes % (Manual) Monocytes % (Manual) Basophils % (Manual) Nucleated RBC % Seg Neutrophils # Seg Neutrophils # Man Lymphocytes # (Manual) Monocytes # (Manual) Eosinophils # (Manual) Basophils # (Manual) PT INR APTT D-Dimer Heparin Anti-Xa Level ABG pH POC ABG pCO2 29.4 L POC ABG pO2 67.1 L ABG pO2 ABG HCO3 ABG O2 Saturation ABG Base Excess ABG Hemoglobin 11.5 L ABG Oxyhemoglobin ABG Sodium 124.1 L ABG Potassium 4.6 H ABG Chloride ABG Glucose 159 H Oxyhemoglobin Carboxyhemoglobin Sodium Potassium Chloride Carbon Dioxide BUN Creatinine Glucose POC Glucose 149 H 150 H Lactic Acid Calcium Phosphorus Magnesium Ferritin Direct Bilirubin AST ALT Alkaline Phosphatase Lactate Dehydrogenase Total Creatine Kinase C-Reactive Protein Total Protein Albumin Triglycerides Arterial Blood Glucose 159 H Arterial Blood Ionized Calcium 4.2 L Urine Creatinine Urine Chloride Vancomycin Trough Coronavirus (PCR) Crossmatch 06/25/20 06/25/20 06/25/20 16:27 16:35 17:27 WBC RBC Hgb Hct MCHC RDW Plt Count Lymph % (Auto) [place] % (Auto) Lymph # (Auto) [place] # (Auto) Eos # (Auto) Baso # (Auto) Seg Neutrophils % Seg Neuts % (Manual) Lymphocytes % (Manual) Monocytes % (Manual) Basophils % (Manual) Nucleated RBC % Seg Neutrophils # Seg Neutrophils # Man Lymphocytes # (Manual) Monocytes # (Manual) Eosinophils # (Manual) Basophils # (Manual) PT INR APTT D-Dimer Heparin Anti-Xa Level < 0.10 L ABG pH POC ABG pCO2 POC ABG pO2 ABG pO2 ABG HCO3 ABG O2 Saturation ABG Base Excess ABG Hemoglobin ABG Oxyhemoglobin ABG Sodium ABG Potassium ABG Chloride ABG Glucose Oxyhemoglobin Carboxyhemoglobin Sodium Potassium Chloride Carbon Dioxide BUN Creatinine Glucose POC Glucose 143 H 156 H Lactic Acid Calcium Phosphorus Magnesium Ferritin Direct Bilirubin AST ALT Alkaline Phosphatase Lactate Dehydrogenase Total Creatine Kinase C-Reactive Protein Total Protein Albumin Triglycerides Arterial Blood Glucose Arterial Blood Ionized Calcium Urine Creatinine Urine Chloride Vancomycin Trough Coronavirus (PCR) Crossmatch 06/25/20 06/25/20 06/25/20 20:00 20:55 23:10 WBC 32.7 H RBC 3.06 L Hgb 9.0 L 9.5 L Hct 26.7 L 28.6 L MCHC RDW Plt Count Lymph % (Auto) [place] % (Auto) Lymph # (Auto) [place] # (Auto) Eos # (Auto) Baso # (Auto) Seg Neutrophils % Seg Neuts % (Manual) Lymphocytes % (Manual) 2.0 L Monocytes % (Manual) Basophils % (Manual) Nucleated RBC % Seg Neutrophils # Seg Neutrophils # Man 30.7 H Lymphocytes # (Manual) 0.7 L Monocytes # (Manual) 1.3 H Eosinophils # (Manual) Basophils # (Manual) PT 17.7 H INR 1.47 H APTT 65.8 H* D-Dimer Heparin Anti-Xa Level ABG pH POC ABG pCO2 POC ABG pO2 ABG pO2 ABG HCO3 ABG O2 Saturation ABG Base Excess ABG Hemoglobin ABG Oxyhemoglobin ABG Sodium ABG Potassium ABG Chloride ABG Glucose Oxyhemoglobin Carboxyhemoglobin Sodium Potassium Chloride Carbon Dioxide BUN Creatinine Glucose POC Glucose Lactic Acid Calcium Phosphorus Magnesium Ferritin Direct Bilirubin AST ALT Alkaline Phosphatase Lactate Dehydrogenase Total Creatine Kinase C-Reactive Protein Total Protein Albumin Triglycerides Arterial Blood Glucose Arterial Blood Ionized Calcium Urine Creatinine Urine Chloride Vancomycin Trough Coronavirus (PCR) Crossmatch 06/25/20 06/26/20 06/26/20 23:14 01:30 03:25 WBC RBC Hgb Hct MCHC RDW Plt Count Lymph % (Auto) [place] % (Auto) Lymph # (Auto) [place] # (Auto) Eos # (Auto) Baso # (Auto) Seg Neutrophils % Seg Neuts % (Manual) Lymphocytes % (Manual) Monocytes % (Manual) Basophils % (Manual) Nucleated RBC % Seg Neutrophils # Seg Neutrophils # Man Lymphocytes # (Manual) Monocytes # (Manual) Eosinophils # (Manual) Basophils # (Manual) PT INR APTT D-Dimer Heparin Anti-Xa Level < 0.10 L ABG pH POC ABG pCO2 POC ABG pO2 ABG pO2 ABG HCO3 ABG O2 Saturation ABG Base Excess ABG Hemoglobin 11.8 L ABG Oxyhemoglobin ABG Sodium 127.1 L ABG Potassium 5.4 H ABG Chloride ABG Glucose 155 H Oxyhemoglobin Carboxyhemoglobin 0.3 L Sodium Potassium Chloride Carbon Dioxide BUN Creatinine Glucose POC Glucose 148 H Lactic Acid Calcium Phosphorus Magnesium Ferritin Direct Bilirubin AST ALT Alkaline Phosphatase Lactate Dehydrogenase Total Creatine Kinase C-Reactive Protein Total Protein Albumin Triglycerides Arterial Blood Glucose 155 H Arterial Blood Ionized Calcium 4.2 L Urine Creatinine Urine Chloride Vancomycin Trough Coronavirus (PCR) Crossmatch 06/26/20 06/26/20 06/26/20 03:59 05:14 05:47 WBC 36.5 H RBC 3.26 L Hgb 9.7 L Hct 28.2 L MCHC RDW Plt Count Lymph % (Auto) [place] % (Auto) Lymph # (Auto) [place] # (Auto) Eos # (Auto) Baso # (Auto) Seg Neutrophils % Seg Neuts % (Manual) 92.0 H Lymphocytes % (Manual) 4.0 L Monocytes % (Manual) Basophils % (Manual) Nucleated RBC % Seg Neutrophils # Seg Neutrophils # Man 33.6 H Lymphocytes # (Manual) Monocytes # (Manual) Eosinophils # (Manual) Basophils # (Manual) PT INR APTT D-Dimer Heparin Anti-Xa Level ABG pH POC ABG pCO2 POC ABG pO2 ABG pO2 ABG HCO3 ABG O2 Saturation ABG Base Excess ABG Hemoglobin ABG Oxyhemoglobin ABG Sodium ABG Potassium ABG Chloride ABG Glucose Oxyhemoglobin Carboxyhemoglobin Sodium Potassium 5.9 H Chloride Carbon Dioxide 20 L BUN 144 H Creatinine 6.4 H Glucose 149 H POC Glucose 128 H Lactic Acid Calcium 7.6 L Phosphorus Magnesium Ferritin Direct Bilirubin AST ALT Alkaline Phosphatase Lactate Dehydrogenase Total Creatine Kinase C-Reactive Protein Total Protein Albumin Triglycerides Arterial Blood Glucose Arterial Blood Ionized Calcium Urine Creatinine Urine Chloride Vancomycin Trough Coronavirus (PCR) Crossmatch 06/26/20 06/26/20 06/26/20 05:47 12:47 17:42 WBC RBC Hgb Hct MCHC RDW Plt Count Lymph % (Auto) [place] % (Auto) Lymph # (Auto) [place] # (Auto) Eos # (Auto) Baso # (Auto) Seg Neutrophils % Seg Neuts % (Manual) Lymphocytes % (Manual) Monocytes % (Manual) Basophils % (Manual) Nucleated RBC % Seg Neutrophils # Seg Neutrophils # Man Lymphocytes # (Manual) Monocytes # (Manual) Eosinophils # (Manual) Basophils # (Manual) PT 17.4 H INR 1.44 H APTT D-Dimer Heparin Anti-Xa Level ABG pH POC ABG pCO2 POC ABG pO2 ABG pO2 ABG HCO3 ABG O2 Saturation ABG Base Excess ABG Hemoglobin ABG Oxyhemoglobin ABG Sodium ABG Potassium ABG Chloride ABG Glucose Oxyhemoglobin Carboxyhemoglobin Sodium Potassium Chloride Carbon Dioxide BUN Creatinine Glucose POC Glucose 124 H 127 H Lactic Acid Calcium Phosphorus Magnesium Ferritin Direct Bilirubin AST ALT Alkaline Phosphatase Lactate Dehydrogenase Total Creatine Kinase C-Reactive Protein Total Protein Albumin Triglycerides Arterial Blood Glucose Arterial Blood Ionized Calcium Urine Creatinine Urine Chloride Vancomycin Trough Coronavirus (PCR) Crossmatch 06/26/20 06/27/20 06/27/20 23:30 03:32 04:00 WBC RBC Hgb 8.7 L Hct 26.4 L MCHC RDW Plt Count Lymph % (Auto) [place] % (Auto) Lymph # (Auto) [place] # (Auto) Eos # (Auto) Baso # (Auto) Seg Neutrophils % Seg Neuts % (Manual) Lymphocytes % (Manual) Monocytes % (Manual) Basophils % (Manual) Nucleated RBC % Seg Neutrophils # Seg Neutrophils # Man Lymphocytes # (Manual) Monocytes # (Manual) Eosinophils # (Manual) Basophils # (Manual) PT INR APTT D-Dimer Heparin Anti-Xa Level ABG pH 7.298 L POC ABG pCO2 POC ABG pO2 ABG pO2 ABG HCO3 ABG O2 Saturation ABG Base Excess ABG Hemoglobin 9.6 L ABG Oxyhemoglobin ABG Sodium 124.4 L ABG Potassium 6.6 H ABG Chloride ABG Glucose 136 H Oxyhemoglobin Carboxyhemoglobin Sodium Potassium Chloride Carbon Dioxide BUN Creatinine Glucose POC Glucose 123 H Lactic Acid Calcium Phosphorus Magnesium Ferritin Direct Bilirubin AST ALT Alkaline Phosphatase Lactate Dehydrogenase Total Creatine Kinase C-Reactive Protein Total Protein Albumin Triglycerides Arterial Blood Glucose 136 H Arterial Blood Ionized Calcium 4.1 L Urine Creatinine Urine Chloride Vancomycin Trough Coronavirus (PCR) Crossmatch 06/27/20 06/27/20 06/27/20 05:26 10:14 11:58 WBC RBC Hgb Hct MCHC RDW Plt Count Lymph % (Auto) [place] % (Auto) Lymph # (Auto) [place] # (Auto) Eos # (Auto) Baso # (Auto) Seg Neutrophils % Seg Neuts % (Manual) Lymphocytes % (Manual) Monocytes % (Manual) Basophils % (Manual) Nucleated RBC % Seg Neutrophils # Seg Neutrophils # Man Lymphocytes # (Manual) Monocytes # (Manual) Eosinophils # (Manual) Basophils # (Manual) PT INR APTT D-Dimer Heparin Anti-Xa Level ABG pH POC ABG pCO2 POC ABG pO2 ABG pO2 ABG HCO3 ABG O2 Saturation ABG Base Excess ABG Hemoglobin ABG Oxyhemoglobin ABG Sodium ABG Potassium ABG Chloride ABG Glucose Oxyhemoglobin Carboxyhemoglobin Sodium 136 L Potassium 7.0 H* Chloride 97.8 L Carbon Dioxide BUN 172 H Creatinine 7.4 H Glucose 129 H POC Glucose 124 H 115 H Lactic Acid Calcium 7.6 L Phosphorus Magnesium Ferritin Direct Bilirubin AST ALT Alkaline Phosphatase Lactate Dehydrogenase Total Creatine Kinase C-Reactive Protein Total Protein Albumin Triglycerides Arterial Blood Glucose Arterial Blood Ionized Calcium Urine Creatinine Urine Chloride Vancomycin Trough Coronavirus (PCR) Crossmatch 06/27/20 06/27/20 06/27/20 17:32 18:30 23:24 WBC RBC Hgb Hct MCHC RDW Plt Count Lymph % (Auto) [place] % (Auto) Lymph # (Auto) [place] # (Auto) Eos # (Auto) Baso # (Auto) Seg Neutrophils % Seg Neuts % (Manual) Lymphocytes % (Manual) Monocytes % (Manual) Basophils % (Manual) Nucleated RBC % Seg Neutrophils # Seg Neutrophils # Man Lymphocytes # (Manual) Monocytes # (Manual) Eosinophils # (Manual) Basophils # (Manual) PT INR APTT D-Dimer Heparin Anti-Xa Level ABG pH POC ABG pCO2 POC ABG pO2 ABG pO2 ABG HCO3 ABG O2 Saturation ABG Base Excess ABG Hemoglobin ABG Oxyhemoglobin ABG Sodium ABG Potassium ABG Chloride ABG Glucose Oxyhemoglobin Carboxyhemoglobin Sodium Potassium 7.3 H* Chloride Carbon Dioxide BUN Creatinine Glucose POC Glucose 122 H 116 H Lactic Acid Calcium Phosphorus Magnesium Ferritin Direct Bilirubin AST ALT Alkaline Phosphatase Lactate Dehydrogenase Total Creatine Kinase C-Reactive Protein Total Protein Albumin Triglycerides Arterial Blood Glucose Arterial Blood Ionized Calcium Urine Creatinine Urine Chloride Vancomycin Trough Coronavirus (PCR) Crossmatch 06/28/20 06/28/20 06/28/20 00:00 02:16 05:37 WBC RBC Hgb Hct MCHC RDW Plt Count Lymph % (Auto) [place] % (Auto) Lymph # (Auto) [place] # (Auto) Eos # (Auto) Baso # (Auto) Seg Neutrophils % Seg Neuts % (Manual) Lymphocytes % (Manual) Monocytes % (Manual) Basophils % (Manual) Nucleated RBC % Seg Neutrophils # Seg Neutrophils # Man Lymphocytes # (Manual) Monocytes # (Manual) Eosinophils # (Manual) Basophils # (Manual) PT INR APTT D-Dimer Heparin Anti-Xa Level ABG pH POC ABG pCO2 POC ABG pO2 79.0 L ABG pO2 ABG HCO3 ABG O2 Saturation ABG Base Excess ABG Hemoglobin 11.7 L ABG Oxyhemoglobin ABG Sodium 128.1 L ABG Potassium 6.6 H ABG Chloride ABG Glucose 124 H Oxyhemoglobin Carboxyhemoglobin Sodium Potassium 7.3 H* Chloride Carbon Dioxide BUN Creatinine Glucose POC Glucose 115 H Lactic Acid Calcium Phosphorus Magnesium Ferritin Direct Bilirubin AST ALT Alkaline Phosphatase Lactate Dehydrogenase Total Creatine Kinase C-Reactive Protein Total Protein Albumin Triglycerides Arterial Blood Glucose 124 H Arterial Blood Ionized Calcium 4.2 L Urine Creatinine Urine Chloride Vancomycin Trough Coronavirus (PCR) Crossmatch 06/28/20 06/28/20 06/28/20 10:03 10:03 11:51 WBC 33.6 H RBC 3.03 L Hgb 8.9 L Hct 27.0 L MCHC RDW Plt Count Lymph % (Auto) [place] % (Auto) Lymph # (Auto) [place] # (Auto) Eos # (Auto) Baso # (Auto) Seg Neutrophils % Seg Neuts % (Manual) Lymphocytes % (Manual) Monocytes % (Manual) Basophils % (Manual) Nucleated RBC % Seg Neutrophils # Seg Neutrophils # Man Lymphocytes # (Manual) Monocytes # (Manual) Eosinophils # (Manual) Basophils # (Manual) PT INR APTT D-Dimer Heparin Anti-Xa Level ABG pH POC ABG pCO2 POC ABG pO2 ABG pO2 ABG HCO3 ABG O2 Saturation ABG Base Excess ABG Hemoglobin ABG Oxyhemoglobin ABG Sodium ABG Potassium ABG Chloride ABG Glucose Oxyhemoglobin Carboxyhemoglobin Sodium 136 L Potassium 6.5 H* Chloride Carbon Dioxide 20 L BUN 129 H Creatinine 5.8 H Glucose 113 H POC Glucose 107 H Lactic Acid Calcium 7.6 L Phosphorus Magnesium Ferritin Direct Bilirubin AST ALT Alkaline Phosphatase Lactate Dehydrogenase Total Creatine Kinase C-Reactive Protein Total Protein Albumin Triglycerides Arterial Blood Glucose Arterial Blood Ionized Calcium Urine Creatinine Urine Chloride Vancomycin Trough Coronavirus (PCR) Crossmatch 06/28/20 06/28/20 06/29/20 17:45 Unknown 03:15 WBC RBC Hgb Hct MCHC RDW Plt Count Lymph % (Auto) [place] % (Auto) Lymph # (Auto) [place] # (Auto) Eos # (Auto) Baso # (Auto) Seg Neutrophils % Seg Neuts % (Manual) Lymphocytes % (Manual) Monocytes % (Manual) Basophils % (Manual) Nucleated RBC % Seg Neutrophils # Seg Neutrophils # Man Lymphocytes # (Manual) Monocytes # (Manual) Eosinophils # (Manual) Basophils # (Manual) PT INR APTT D-Dimer Heparin Anti-Xa Level ABG pH POC ABG pCO2 POC ABG pO2 ABG pO2 ABG HCO3 ABG O2 Saturation ABG Base Excess ABG Hemoglobin 7.8 L ABG Oxyhemoglobin ABG Sodium 127.4 L ABG Potassium 5.5 H ABG Chloride 97.0 L ABG Glucose 96 H Oxyhemoglobin Carboxyhemoglobin Sodium Potassium 5.4 H Chloride Carbon Dioxide BUN Creatinine Glucose POC Glucose 117 H Lactic Acid Calcium Phosphorus Magnesium Ferritin Direct Bilirubin AST ALT Alkaline Phosphatase Lactate Dehydrogenase Total Creatine Kinase C-Reactive Protein Total Protein Albumin Triglycerides Arterial Blood Glucose 96 H Arterial Blood Ionized Calcium 4.0 L Urine Creatinine Urine Chloride Vancomycin Trough Coronavirus (PCR) Crossmatch 06/29/20 06/29/20 06/29/20 03:45 Unknown Unknown WBC RBC Hgb Hct MCHC RDW Plt Count Lymph % (Auto) [place] % (Auto) Lymph # (Auto) [place] # (Auto) Eos # (Auto) Baso # (Auto) Seg Neutrophils % Seg Neuts % (Manual) Lymphocytes % (Manual) Monocytes % (Manual) Basophils % (Manual) Nucleated RBC % Seg Neutrophils # Seg Neutrophils # Man Lymphocytes # (Manual) Monocytes # (Manual) Eosinophils # (Manual) Basophils # (Manual) PT INR APTT D-Dimer Heparin Anti-Xa Level ABG pH POC ABG pCO2 POC ABG pO2 ABG pO2 ABG HCO3 ABG O2 Saturation ABG Base Excess ABG Hemoglobin ABG Oxyhemoglobin ABG Sodium ABG Potassium ABG Chloride ABG Glucose Oxyhemoglobin Carboxyhemoglobin Sodium 135 L Potassium 6.0 H 6.1 H* Chloride 94.8 L Carbon Dioxide BUN 109 H 114 H Creatinine 5.5 H Glucose POC Glucose Lactic Acid Calcium 7.4 L Phosphorus Magnesium Ferritin Direct Bilirubin AST 47 H ALT Alkaline Phosphatase Lactate Dehydrogenase Total Creatine Kinase C-Reactive Protein Total Protein 4.9 L Albumin 2.2 L Triglycerides Arterial Blood Glucose Arterial Blood Ionized Calcium Urine Creatinine Urine Chloride Vancomycin Trough Coronavirus (PCR) Crossmatch 06/29/20 06/29/20 06/30/20 Unknown Unknown 03:32 WBC 20.7 H RBC 2.57 L Hgb 7.6 L Hct 23.0 L MCHC RDW Plt Count Lymph % (Auto) [place] % (Auto) Lymph # (Auto) [place] # (Auto) Eos # (Auto) Baso # (Auto) Seg Neutrophils % Seg Neuts % (Manual) Lymphocytes % (Manual) Monocytes % (Manual) Basophils % (Manual) Nucleated RBC % Seg Neutrophils # Seg Neutrophils # Man Lymphocytes # (Manual) Monocytes # (Manual) Eosinophils # (Manual) Basophils # (Manual) PT INR APTT D-Dimer Heparin Anti-Xa Level ABG pH POC ABG pCO2 POC ABG pO2 ABG pO2 ABG HCO3 ABG O2 Saturation ABG Base Excess ABG Hemoglobin 11.4 L ABG Oxyhemoglobin ABG Sodium 130.1 L ABG Potassium 5.0 H ABG Chloride ABG Glucose Oxyhemoglobin Carboxyhemoglobin Sodium Potassium Chloride Carbon Dioxide BUN Creatinine Glucose POC Glucose Lactic Acid Calcium Phosphorus Magnesium Ferritin Direct Bilirubin AST ALT Alkaline Phosphatase Lactate Dehydrogenase Total Creatine Kinase 618 H C-Reactive Protein Total Protein Albumin Triglycerides Arterial Blood Glucose Arterial Blood Ionized Calcium 3.9 L Urine Creatinine Urine Chloride Vancomycin Trough Coronavirus (PCR) Crossmatch 06/30/20 06/30/20 06/30/20 03:50 03:50 11:39 WBC 13.1 H RBC Hgb Hct MCHC RDW Plt Count Lymph % (Auto) [place] % (Auto) Lymph # (Auto) [place] # (Auto) Eos # (Auto) Baso # (Auto) Seg Neutrophils % Seg Neuts % (Manual) 95.0 H Lymphocytes % (Manual) 3.0 L Monocytes % (Manual) Basophils % (Manual) Nucleated RBC % Seg Neutrophils # Seg Neutrophils # Man 12.4 H Lymphocytes # (Manual) 0.4 L Monocytes # (Manual) Eosinophils # (Manual) Basophils # (Manual) PT INR APTT D-Dimer Heparin Anti-Xa Level ABG pH POC ABG pCO2 POC ABG pO2 ABG pO2 ABG HCO3 ABG O2 Saturation ABG Base Excess ABG Hemoglobin ABG Oxyhemoglobin ABG Sodium ABG Potassium ABG Chloride ABG Glucose Oxyhemoglobin Carboxyhemoglobin Sodium 135 L Potassium 5.4 H D Chloride 93.6 L Carbon Dioxide BUN 85 H Creatinine 4.6 H Glucose POC Glucose 111 H Lactic Acid Calcium 7.1 L Phosphorus 9.40 H Magnesium Ferritin Direct Bilirubin AST ALT Alkaline Phosphatase Lactate Dehydrogenase Total Creatine Kinase C-Reactive Protein Total Protein Albumin Triglycerides Arterial Blood Glucose Arterial Blood Ionized Calcium Urine Creatinine Urine Chloride Vancomycin Trough Coronavirus (PCR) Crossmatch 06/30/20 06/30/20 07/01/20 13:12 Unknown 03:19 WBC RBC Hgb 7.8 L D Hct 23.2 L D MCHC RDW Plt Count Lymph % (Auto) [place] % (Auto) Lymph # (Auto) [place] # (Auto) Eos # (Auto) Baso # (Auto) Seg Neutrophils % Seg Neuts % (Manual) Lymphocytes % (Manual) Monocytes % (Manual) Basophils % (Manual) Nucleated RBC % Seg Neutrophils # Seg Neutrophils # Man Lymphocytes # (Manual) Monocytes # (Manual) Eosinophils # (Manual) Basophils # (Manual) PT INR APTT D-Dimer Heparin Anti-Xa Level ABG pH 7.461 H POC ABG pCO2 POC ABG pO2 77.2 L ABG pO2 ABG HCO3 ABG O2 Saturation ABG Base Excess ABG Hemoglobin 6.9 L ABG Oxyhemoglobin ABG Sodium 128.5 L ABG Potassium ABG Chloride 97.0 L ABG Glucose Oxyhemoglobin Carboxyhemoglobin Sodium Potassium Chloride Carbon Dioxide BUN Creatinine Glucose POC Glucose Lactic Acid Calcium Phosphorus Magnesium Ferritin Direct Bilirubin AST ALT Alkaline Phosphatase Lactate Dehydrogenase Total Creatine Kinase C-Reactive Protein Total Protein Albumin Triglycerides Arterial Blood Glucose Arterial Blood Ionized Calcium 3.7 L Urine Creatinine Urine Chloride Vancomycin Trough Coronavirus (PCR) Positive A Crossmatch 07/01/20 07/01/20 07/01/20 06:00 06:00 11:04 WBC 16.7 H RBC 2.16 L Hgb 6.4 L Hct 19.2 L* MCHC RDW Plt Count Lymph % (Auto) [place] % (Auto) Lymph # (Auto) [place] # (Auto) Eos # (Auto) Baso # (Auto) Seg Neutrophils % Seg Neuts % (Manual) Lymphocytes % (Manual) Monocytes % (Manual) Basophils % (Manual) Nucleated RBC % Seg Neutrophils # Seg Neutrophils # Man Lymphocytes # (Manual) Monocytes # (Manual) Eosinophils # (Manual) Basophils # (Manual) PT INR APTT D-Dimer Heparin Anti-Xa Level ABG pH POC ABG pCO2 POC ABG pO2 ABG pO2 ABG HCO3 ABG O2 Saturation ABG Base Excess ABG Hemoglobin ABG Oxyhemoglobin ABG Sodium ABG Potassium ABG Chloride ABG Glucose Oxyhemoglobin Carboxyhemoglobin Sodium 136 L Potassium Chloride 95.8 L Carbon Dioxide BUN 72 H Creatinine 4.3 H Glucose POC Glucose Lactic Acid Calcium 6.7 L Phosphorus Magnesium Ferritin Direct Bilirubin AST ALT Alkaline Phosphatase Lactate Dehydrogenase Total Creatine Kinase C-Reactive Protein Total Protein Albumin Triglycerides 250 H Arterial Blood Glucose Arterial Blood Ionized Calcium Urine Creatinine Urine Chloride Vancomycin Trough Coronavirus (PCR) Crossmatch See Detail 07/02/20 07/02/20 07/02/20 04:44 06:00 11:33 WBC 14.6 H RBC 2.47 L Hgb 7.4 L Hct 21.8 L MCHC RDW Plt Count Lymph % (Auto) [place] % (Auto) Lymph # (Auto) [place] # (Auto) Eos # (Auto) Baso # (Auto) Seg Neutrophils % Seg Neuts % (Manual) Lymphocytes % (Manual) Monocytes % (Manual) Basophils % (Manual) Nucleated RBC % Seg Neutrophils # Seg Neutrophils # Man Lymphocytes # (Manual) Monocytes # (Manual) Eosinophils # (Manual) Basophils # (Manual) PT INR APTT D-Dimer Heparin Anti-Xa Level ABG pH 7.457 H POC ABG pCO2 POC ABG pO2 79.4 L ABG pO2 ABG HCO3 ABG O2 Saturation ABG Base Excess ABG Hemoglobin 8.5 L ABG Oxyhemoglobin ABG Sodium 128.4 L ABG Potassium ABG Chloride 97.0 L ABG Glucose 100 H Oxyhemoglobin Carboxyhemoglobin Sodium 133 L Potassium 5.2 H Chloride 93.3 L Carbon Dioxide BUN 66 H Creatinine 4.1 H Glucose 102 H POC Glucose Lactic Acid Calcium 7.2 L Phosphorus Magnesium Ferritin Direct Bilirubin AST ALT Alkaline Phosphatase Lactate Dehydrogenase Total Creatine Kinase C-Reactive Protein Total Protein Albumin Triglycerides Arterial Blood Glucose 100 H Arterial Blood Ionized Calcium 3.9 L Urine Creatinine Urine Chloride Vancomycin Trough Coronavirus (PCR) Crossmatch 07/02/20 07/03/20 07/03/20 11:33 03:54 09:15 WBC 16.6 H RBC 2.44 L Hgb 7.3 L Hct 21.4 L MCHC RDW Plt Count Lymph % (Auto) [place] % (Auto) Lymph # (Auto) [place] # (Auto) Eos # (Auto) Baso # (Auto) Seg Neutrophils % Seg Neuts % (Manual) Lymphocytes % (Manual) Monocytes % (Manual) Basophils % (Manual) Nucleated RBC % Seg Neutrophils # Seg Neutrophils # Man Lymphocytes # (Manual) Monocytes # (Manual) Eosinophils # (Manual) Basophils # (Manual) PT INR APTT D-Dimer Heparin Anti-Xa Level ABG pH POC ABG pCO2 POC ABG pO2 66.1 L ABG pO2 ABG HCO3 ABG O2 Saturation ABG Base Excess ABG Hemoglobin 8.0 L ABG Oxyhemoglobin ABG Sodium 124.6 L ABG Potassium 5.5 H ABG Chloride 96.0 L ABG Glucose 111 H Oxyhemoglobin Carboxyhemoglobin Sodium Potassium Chloride Carbon Dioxide BUN Creatinine Glucose POC Glucose Lactic Acid Calcium Phosphorus Magnesium Ferritin Direct Bilirubin 0.7 H AST 94 H ALT 60 H Alkaline Phosphatase Lactate Dehydrogenase Total Creatine Kinase C-Reactive Protein Total Protein 4.4 L Albumin 1.9 L Triglycerides Arterial Blood Glucose 111 H Arterial Blood Ionized Calcium 3.8 L Urine Creatinine Urine Chloride Vancomycin Trough Coronavirus (PCR) Crossmatch 07/03/20 07/03/20 07/03/20 09:15 10:10 14:50 WBC RBC Hgb Hct MCHC RDW Plt Count Lymph % (Auto) [place] % (Auto) Lymph # (Auto) [place] # (Auto) Eos # (Auto) Baso # (Auto) Seg Neutrophils % Seg Neuts % (Manual) Lymphocytes % (Manual) Monocytes % (Manual) Basophils % (Manual) Nucleated RBC % Seg Neutrophils # Seg Neutrophils # Man Lymphocytes # (Manual) Monocytes # (Manual) Eosinophils # (Manual) Basophils # (Manual) PT INR APTT D-Dimer 6608.00 H Heparin Anti-Xa Level ABG pH POC ABG pCO2 POC ABG pO2 ABG pO2 ABG HCO3 ABG O2 Saturation ABG Base Excess ABG Hemoglobin ABG Oxyhemoglobin ABG Sodium ABG Potassium ABG Chloride ABG Glucose Oxyhemoglobin Carboxyhemoglobin Sodium 133 L Potassium 6.2 H* Chloride 93.1 L Carbon Dioxide BUN 89 H Creatinine 5.1 H Glucose POC Glucose Lactic Acid Calcium 7.0 L Phosphorus Magnesium Ferritin Direct Bilirubin AST ALT Alkaline Phosphatase Lactate Dehydrogenase Total Creatine Kinase C-Reactive Protein Total Protein Albumin Triglycerides Arterial Blood Glucose Arterial Blood Ionized Calcium Urine Creatinine Urine Chloride Vancomycin Trough Coronavirus (PCR) Positive A Crossmatch 07/03/20 07/03/20 07/03/20 14:50 14:50 14:50 WBC RBC Hgb Hct MCHC RDW Plt Count Lymph % (Auto) [place] % (Auto) Lymph # (Auto) [place] # (Auto) Eos # (Auto) Baso # (Auto) Seg Neutrophils % Seg Neuts % (Manual) Lymphocytes % (Manual) Monocytes % (Manual) Basophils % (Manual) Nucleated RBC % Seg Neutrophils # Seg Neutrophils # Man Lymphocytes # (Manual) Monocytes # (Manual) Eosinophils # (Manual) Basophils # (Manual) PT INR APTT D-Dimer Heparin Anti-Xa Level ABG pH POC ABG pCO2 POC ABG pO2 ABG pO2 ABG HCO3 ABG O2 Saturation ABG Base Excess ABG Hemoglobin ABG Oxyhemoglobin ABG Sodium ABG Potassium ABG Chloride ABG Glucose Oxyhemoglobin Carboxyhemoglobin Sodium Potassium Chloride Carbon Dioxide BUN Creatinine Glucose POC Glucose Lactic Acid < 0.20 L Calcium Phosphorus Magnesium Ferritin 1171.0 H Direct Bilirubin AST ALT Alkaline Phosphatase Lactate Dehydrogenase 525 H Total Creatine Kinase C-Reactive Protein 31.50 H Total Protein Albumin Triglycerides Arterial Blood Glucose Arterial Blood Ionized Calcium Urine Creatinine Urine Chloride Vancomycin Trough Coronavirus (PCR) Crossmatch 07/03/20 07/04/20 07/04/20 16:47 05:20 05:20 WBC 11.8 H RBC 2.32 L Hgb 6.7 L Hct 20.8 L MCHC RDW Plt Count Lymph % (Auto) 2.6 L [place] % (Auto) Lymph # (Auto) 0.3 L [place] # (Auto) Eos # (Auto) Baso # (Auto) Seg Neutrophils % Seg Neuts % (Manual) Lymphocytes % (Manual) Monocytes % (Manual) Basophils % (Manual) Nucleated RBC % Seg Neutrophils # 11.0 H Seg Neutrophils # Man Lymphocytes # (Manual) Monocytes # (Manual) Eosinophils # (Manual) Basophils # (Manual) PT INR APTT D-Dimer Heparin Anti-Xa Level ABG pH POC ABG pCO2 POC ABG pO2 ABG pO2 ABG HCO3 ABG O2 Saturation ABG Base Excess ABG Hemoglobin ABG Oxyhemoglobin ABG Sodium ABG Potassium ABG Chloride ABG Glucose Oxyhemoglobin Carboxyhemoglobin Sodium Potassium 6.0 H Chloride 97.8 L Carbon Dioxide BUN 75 H Creatinine 4.5 H Glucose 121 H POC Glucose 107 H Lactic Acid Calcium 7.9 L Phosphorus Magnesium Ferritin Direct Bilirubin AST ALT Alkaline Phosphatase Lactate Dehydrogenase Total Creatine Kinase C-Reactive Protein Total Protein Albumin Triglycerides Arterial Blood Glucose Arterial Blood Ionized Calcium Urine Creatinine Urine Chloride Vancomycin Trough Coronavirus (PCR) Crossmatch 07/04/20 07/04/20 07/04/20 05:20 05:50 09:25 WBC RBC Hgb Hct MCHC RDW Plt Count Lymph % (Auto) [place] % (Auto) Lymph # (Auto) [place] # (Auto) Eos # (Auto) Baso # (Auto) Seg Neutrophils % Seg Neuts % (Manual) Lymphocytes % (Manual) Monocytes % (Manual) Basophils % (Manual) Nucleated RBC % Seg Neutrophils # Seg Neutrophils # Man Lymphocytes # (Manual) Monocytes # (Manual) Eosinophils # (Manual) Basophils # (Manual) PT INR APTT D-Dimer Heparin Anti-Xa Level ABG pH 7.324 L POC ABG pCO2 POC ABG pO2 ABG pO2 98.9 H ABG HCO3 26.8 H ABG O2 Saturation ABG Base Excess ABG Hemoglobin < 5.1 L ABG Oxyhemoglobin ABG Sodium ABG Potassium ABG Chloride ABG Glucose Oxyhemoglobin Carboxyhemoglobin Sodium Potassium Chloride Carbon Dioxide BUN Creatinine Glucose POC Glucose 114 H Lactic Acid Calcium Phosphorus Magnesium Ferritin Direct Bilirubin AST ALT Alkaline Phosphatase Lactate Dehydrogenase Total Creatine Kinase C-Reactive Protein Total Protein Albumin Triglycerides Arterial Blood Glucose Arterial Blood Ionized Calcium Urine Creatinine Urine Chloride Vancomycin Trough Coronavirus (PCR) Crossmatch See Detail 07/04/20 07/04/20 07/04/20 12:33 17:41 23:04 WBC RBC Hgb Hct MCHC RDW Plt Count Lymph % (Auto) [place] % (Auto) Lymph # (Auto) [place] # (Auto) Eos # (Auto) Baso # (Auto) Seg Neutrophils % Seg Neuts % (Manual) Lymphocytes % (Manual) Monocytes % (Manual) Basophils % (Manual) Nucleated RBC % Seg Neutrophils # Seg Neutrophils # Man Lymphocytes # (Manual) Monocytes # (Manual) Eosinophils # (Manual) Basophils # (Manual) PT INR APTT D-Dimer Heparin Anti-Xa Level ABG pH POC ABG pCO2 POC ABG pO2 ABG pO2 ABG HCO3 ABG O2 Saturation ABG Base Excess ABG Hemoglobin ABG Oxyhemoglobin ABG Sodium ABG Potassium ABG Chloride ABG Glucose Oxyhemoglobin Carboxyhemoglobin Sodium Potassium Chloride Carbon Dioxide BUN Creatinine Glucose POC Glucose 119 H 109 H 116 H Lactic Acid Calcium Phosphorus Magnesium Ferritin Direct Bilirubin AST ALT Alkaline Phosphatase Lactate Dehydrogenase Total Creatine Kinase C-Reactive Protein Total Protein Albumin Triglycerides Arterial Blood Glucose Arterial Blood Ionized Calcium Urine Creatinine Urine Chloride Vancomycin Trough Coronavirus (PCR) Crossmatch 07/05/20 07/05/20 07/05/20 04:30 08:21 08:21 WBC RBC 2.77 L Hgb 7.9 L Hct 23.9 L MCHC RDW 16.7 H Plt Count Lymph % (Auto) 7.5 L [place] % (Auto) Lymph # (Auto) 0.7 L [place] # (Auto) Eos # (Auto) Baso # (Auto) Seg Neutrophils % 85.8 H Seg Neuts % (Manual) Lymphocytes % (Manual) Monocytes % (Manual) Basophils % (Manual) Nucleated RBC % Seg Neutrophils # 7.8 H Seg Neutrophils # Man Lymphocytes # (Manual) Monocytes # (Manual) Eosinophils # (Manual) Basophils # (Manual) PT INR APTT D-Dimer Heparin Anti-Xa Level ABG pH 7.295 L POC ABG pCO2 POC ABG pO2 ABG pO2 151.9 H ABG HCO3 26.8 H ABG O2 Saturation ABG Base Excess ABG Hemoglobin 7.3 L ABG Oxyhemoglobin ABG Sodium ABG Potassium ABG Chloride ABG Glucose Oxyhemoglobin Carboxyhemoglobin Sodium Potassium Chloride Carbon Dioxide BUN Creatinine Glucose POC Glucose Lactic Acid Calcium Phosphorus Magnesium Ferritin Direct Bilirubin AST ALT Alkaline Phosphatase Lactate Dehydrogenase Total Creatine Kinase C-Reactive Protein Total Protein Albumin Triglycerides 258 H Arterial Blood Glucose Arterial Blood Ionized Calcium Urine Creatinine Urine Chloride Vancomycin Trough Coronavirus (PCR) Crossmatch 07/05/20 07/05/20 07/06/20 08:21 12:12 04:29 WBC RBC Hgb Hct MCHC RDW Plt Count Lymph % (Auto) [place] % (Auto) Lymph # (Auto) [place] # (Auto) Eos # (Auto) Baso # (Auto) Seg Neutrophils % Seg Neuts % (Manual) Lymphocytes % (Manual) Monocytes % (Manual) Basophils % (Manual) Nucleated RBC % Seg Neutrophils # Seg Neutrophils # Man Lymphocytes # (Manual) Monocytes # (Manual) Eosinophils # (Manual) Basophils # (Manual) PT INR APTT D-Dimer Heparin Anti-Xa Level ABG pH 7.291 L POC ABG pCO2 51.3 H POC ABG pO2 ABG pO2 ABG HCO3 ABG O2 Saturation ABG Base Excess ABG Hemoglobin 8.5 L ABG Oxyhemoglobin ABG Sodium 129.6 L ABG Potassium 4.8 H ABG Chloride 96.0 L ABG Glucose Oxyhemoglobin Carboxyhemoglobin Sodium 133 L Potassium 5.6 H Chloride 94.4 L Carbon Dioxide BUN 80 H Creatinine 4.2 H Glucose 114 H POC Glucose 106 H Lactic Acid Calcium 7.6 L Phosphorus Magnesium Ferritin Direct Bilirubin 0.5 H AST 75 H ALT 86 H Alkaline Phosphatase Lactate Dehydrogenase Total Creatine Kinase C-Reactive Protein Total Protein 5.6 L D Albumin 1.9 L Triglycerides Arterial Blood Glucose Arterial Blood Ionized Calcium 4.2 L Urine Creatinine Urine Chloride Vancomycin Trough Coronavirus (PCR) Crossmatch 0207/06/20 07/06/20 11:35 11:35 12:16 WBC RBC 2.54 L Hgb 7.5 L Hct 21.5 L MCHC 35 H RDW 15.7 H Plt Count Lymph % (Auto) [place] % (Auto) Lymph # (Auto) [place] # (Auto) Eos # (Auto) Baso # (Auto) Seg Neutrophils % Seg Neuts % (Manual) Lymphocytes % (Manual) Monocytes % (Manual) Basophils % (Manual) Nucleated RBC % Seg Neutrophils # Seg Neutrophils # Man Lymphocytes # (Manual) Monocytes # (Manual) Eosinophils # (Manual) Basophils # (Manual) PT INR APTT D-Dimer Heparin Anti-Xa Level ABG pH POC ABG pCO2 POC ABG pO2 ABG pO2 ABG HCO3 ABG O2 Saturation ABG Base Excess ABG Hemoglobin ABG Oxyhemoglobin ABG Sodium ABG Potassium ABG Chloride ABG Glucose Oxyhemoglobin Carboxyhemoglobin Sodium 130 L Potassium Chloride 92.2 L Carbon Dioxide 19 L D BUN 107 H Creatinine 5.1 H Glucose 106 H POC Glucose 106 H Lactic Acid Calcium 7.5 L Phosphorus Magnesium Ferritin Direct Bilirubin AST ALT Alkaline Phosphatase Lactate Dehydrogenase Total Creatine Kinase C-Reactive Protein Total Protein Albumin Triglycerides Arterial Blood Glucose Arterial Blood Ionized Calcium Urine Creatinine Urine Chloride Vancomycin Trough Coronavirus (PCR) Crossmatch 07/06/20 07/06/20 07/06/20 17:01 21:56 23:41 WBC RBC Hgb Hct MCHC RDW Plt Count Lymph % (Auto) [place] % (Auto) Lymph # (Auto) [place] # (Auto) Eos # (Auto) Baso # (Auto) Seg Neutrophils % Seg Neuts % (Manual) Lymphocytes % (Manual) Monocytes % (Manual) Basophils % (Manual) Nucleated RBC % Seg Neutrophils # Seg Neutrophils # Man Lymphocytes # (Manual) Monocytes # (Manual) Eosinophils # (Manual) Basophils # (Manual) PT INR APTT D-Dimer Heparin Anti-Xa Level ABG pH POC ABG pCO2 POC ABG pO2 ABG pO2 ABG HCO3 ABG O2 Saturation ABG Base Excess ABG Hemoglobin ABG Oxyhemoglobin ABG Sodium ABG Potassium ABG Chloride ABG Glucose Oxyhemoglobin Carboxyhemoglobin Sodium 135 L Potassium 5.1 H Chloride Carbon Dioxide BUN 73 H Creatinine 4.0 H Glucose 112 H POC Glucose 109 H 111 H Lactic Acid Calcium 7.8 L Phosphorus Magnesium Ferritin Direct Bilirubin AST ALT Alkaline Phosphatase Lactate Dehydrogenase Total Creatine Kinase C-Reactive Protein Total Protein Albumin Triglycerides Arterial Blood Glucose Arterial Blood Ionized Calcium Urine Creatinine Urine Chloride Vancomycin Trough Coronavirus (PCR) Crossmatch 07/07/20 07/07/20 07/07/20 04:18 05:04 05:29 WBC RBC 2.46 L Hgb 7.6 L Hct 21.5 L MCHC 35 H RDW 16.5 H Plt Count Lymph % (Auto) [place] % (Auto) Lymph # (Auto) [place] # (Auto) Eos # (Auto) Baso # (Auto) Seg Neutrophils % Seg Neuts % (Manual) 82.0 H Lymphocytes % (Manual) Monocytes % (Manual) Basophils % (Manual) Nucleated RBC % 1.0 H Seg Neutrophils # Seg Neutrophils # Man Lymphocytes # (Manual) 1.1 L Monocytes # (Manual) Eosinophils # (Manual) Basophils # (Manual) PT INR APTT D-Dimer Heparin Anti-Xa Level ABG pH POC ABG pCO2 POC ABG pO2 79.6 L ABG pO2 ABG HCO3 ABG O2 Saturation ABG Base Excess ABG Hemoglobin 8.2 L ABG Oxyhemoglobin ABG Sodium 133.3 L ABG Potassium 4.7 H ABG Chloride ABG Glucose 135 H Oxyhemoglobin Carboxyhemoglobin Sodium Potassium Chloride Carbon Dioxide BUN Creatinine Glucose POC Glucose 112 H Lactic Acid Calcium Phosphorus Magnesium Ferritin Direct Bilirubin AST ALT Alkaline Phosphatase Lactate Dehydrogenase Total Creatine Kinase C-Reactive Protein Total Protein Albumin Triglycerides Arterial Blood Glucose 135 H Arterial Blood Ionized Calcium 4.5 L Urine Creatinine Urine Chloride Vancomycin Trough Coronavirus (PCR) Crossmatch 07/07/20 07/07/20 07/07/20 10:17 12:18 17:43 WBC RBC Hgb Hct MCHC RDW Plt Count Lymph % (Auto) [place] % (Auto) Lymph # (Auto) [place] # (Auto) Eos # (Auto) Baso # (Auto) Seg Neutrophils % Seg Neuts % (Manual) Lymphocytes % (Manual) Monocytes % (Manual) Basophils % (Manual) Nucleated RBC % Seg Neutrophils # Seg Neutrophils # Man Lymphocytes # (Manual) Monocytes # (Manual) Eosinophils # (Manual) Basophils # (Manual) PT INR APTT D-Dimer Heparin Anti-Xa Level ABG pH POC ABG pCO2 POC ABG pO2 ABG pO2 ABG HCO3 ABG O2 Saturation ABG Base Excess ABG Hemoglobin ABG Oxyhemoglobin ABG Sodium ABG Potassium ABG Chloride ABG Glucose Oxyhemoglobin Carboxyhemoglobin Sodium 136 L Potassium Chloride 96.8 L Carbon Dioxide BUN 82 H Creatinine 4.3 H Glucose 129 H POC Glucose 108 H 116 H Lactic Acid Calcium 7.8 L Phosphorus Magnesium Ferritin Direct Bilirubin AST ALT Alkaline Phosphatase Lactate Dehydrogenase Total Creatine Kinase C-Reactive Protein Total Protein Albumin Triglycerides Arterial Blood Glucose Arterial Blood Ionized Calcium Urine Creatinine Urine Chloride Vancomycin Trough Coronavirus (PCR) Crossmatch 07/07/20 07/08/20 07/08/20 23:31 04:00 04:00 WBC RBC 2.52 L Hgb 7.3 L Hct 22.2 L MCHC RDW 16.6 H Plt Count Lymph % (Auto) 11.5 L Forrest % (Auto) Lymph # (Auto) Forrest # (Auto) Eos # (Auto) Baso # (Auto) Seg Neutrophils % 78.2 H Seg Neuts % (Manual) Lymphocytes % (Manual) Monocytes % (Manual) Basophils % (Manual) Nucleated RBC % Seg Neutrophils # 8.0 H Seg Neutrophils # Man Lymphocytes # (Manual) Monocytes # (Manual) Eosinophils # (Manual) Basophils # (Manual) PT INR APTT D-Dimer Heparin Anti-Xa Level ABG pH POC ABG pCO2 POC ABG pO2 ABG pO2 ABG HCO3 ABG O2 Saturation ABG Base Excess ABG Hemoglobin ABG Oxyhemoglobin ABG Sodium ABG Potassium ABG Chloride ABG Glucose Oxyhemoglobin Carboxyhemoglobin Sodium 132 L Potassium 5.4 H Chloride 92.5 L Carbon Dioxide BUN 98 H Creatinine 4.9 H Glucose 105 H POC Glucose 117 H Lactic Acid Calcium 7.9 L Phosphorus Magnesium Ferritin Direct Bilirubin AST ALT Alkaline Phosphatase Lactate Dehydrogenase Total Creatine Kinase C-Reactive Protein Total Protein Albumin Triglycerides Arterial Blood Glucose Arterial Blood Ionized Calcium Urine Creatinine Urine Chloride Vancomycin Trough Coronavirus (PCR) Crossmatch 07/08/20 07/08/20 07/08/20 04:09 11:34 17:05 WBC RBC Hgb Hct MCHC RDW Plt Count Lymph % (Auto) Forrest % (Auto) Lymph # (Auto) Forrest # (Auto) Eos # (Auto) Baso # (Auto) Seg Neutrophils % Seg Neuts % (Manual) Lymphocytes % (Manual) Monocytes % (Manual) Basophils % (Manual) Nucleated RBC % Seg Neutrophils # Seg Neutrophils # Man Lymphocytes # (Manual) Monocytes # (Manual) Eosinophils # (Manual) Basophils # (Manual) PT INR APTT D-Dimer Heparin Anti-Xa Level ABG pH 7.220 L POC ABG pCO2 60.5 H POC ABG pO2 ABG pO2 ABG HCO3 ABG O2 Saturation ABG Base Excess ABG Hemoglobin 8.2 L ABG Oxyhemoglobin ABG Sodium 131.3 L ABG Potassium 5.2 H ABG Chloride ABG Glucose 103 H Oxyhemoglobin Carboxyhemoglobin Sodium Potassium Chloride Carbon Dioxide BUN Creatinine Glucose POC Glucose 140 H 125 H Lactic Acid Calcium Phosphorus Magnesium Ferritin Direct Bilirubin AST ALT Alkaline Phosphatase Lactate Dehydrogenase Total Creatine Kinase C-Reactive Protein Total Protein Albumin Triglycerides Arterial Blood Glucose 103 H Arterial Blood Ionized Calcium 4.3 L Urine Creatinine Urine Chloride Vancomycin Trough Coronavirus (PCR) Crossmatch 07/08/20 07/08/20 07/09/20 20:21 23:43 05:10 WBC RBC Hgb Hct MCHC RDW Plt Count Lymph % (Auto) Forrest % (Auto) Lymph # (Auto) [place] # (Auto) Eos # (Auto) Baso # (Auto) Seg Neutrophils % Seg Neuts % (Manual) Lymphocytes % (Manual) Monocytes % (Manual) Basophils % (Manual) Nucleated RBC % Seg Neutrophils # Seg Neutrophils # Man Lymphocytes # (Manual) Monocytes # (Manual) Eosinophils # (Manual) Basophils # (Manual) PT INR APTT D-Dimer Heparin Anti-Xa Level ABG pH 7.20 L POC ABG pCO2 69.8 H POC ABG pO2 138.9 H 76.1 L ABG pO2 ABG HCO3 ABG O2 Saturation ABG Base Excess ABG Hemoglobin 11.9 L 8.4 L ABG Oxyhemoglobin ABG Sodium 133.1 L 131.2 L ABG Potassium 5.0 H 4.7 H ABG Chloride ABG Glucose 120 H 102 H Oxyhemoglobin Carboxyhemoglobin Sodium Potassium Chloride Carbon Dioxide BUN Creatinine Glucose POC Glucose 118 H Lactic Acid Calcium Phosphorus Magnesium Ferritin Direct Bilirubin AST ALT Alkaline Phosphatase Lactate Dehydrogenase Total Creatine Kinase C-Reactive Protein Total Protein Albumin Triglycerides Arterial Blood Glucose 120 H 102 H Arterial Blood Ionized Calcium 4.4 L 4.3 L Urine Creatinine Urine Chloride Vancomycin Trough Coronavirus (PCR) Crossmatch 07/09/20 07/09/20 07/09/20 11:51 17:04 21:00 WBC RBC Hgb Hct MCHC RDW Plt Count Lymph % (Auto) Forrest % (Auto) Lymph # (Auto) [place] # (Auto) Eos # (Auto) Baso # (Auto) Seg Neutrophils % Seg Neuts % (Manual) Lymphocytes % (Manual) Monocytes % (Manual) Basophils % (Manual) Nucleated RBC % Seg Neutrophils # Seg Neutrophils # Man Lymphocytes # (Manual) Monocytes # (Manual) Eosinophils # (Manual) Basophils # (Manual) PT INR APTT D-Dimer Heparin Anti-Xa Level ABG pH POC ABG pCO2 POC ABG pO2 114.2 H ABG pO2 ABG HCO3 ABG O2 Saturation ABG Base Excess ABG Hemoglobin 7.8 L ABG Oxyhemoglobin ABG Sodium 132.3 L ABG Potassium 4.6 H ABG Chloride ABG Glucose Oxyhemoglobin Carboxyhemoglobin Sodium Potassium Chloride Carbon Dioxide BUN Creatinine Glucose POC Glucose 113 H 111 H Lactic Acid Calcium Phosphorus Magnesium Ferritin Direct Bilirubin AST ALT Alkaline Phosphatase Lactate Dehydrogenase Total Creatine Kinase C-Reactive Protein Total Protein Albumin Triglycerides Arterial Blood Glucose Arterial Blood Ionized Calcium 4.4 L Urine Creatinine Urine Chloride Vancomycin Trough Coronavirus (PCR) Crossmatch 07/10/20 07/10/20 07/10/20 03:49 03:55 03:55 WBC 18.1 H RBC 2.37 L Hgb 6.8 L Hct 20.7 L MCHC RDW 16.9 H Plt Count Lymph % (Auto) Forrest % (Auto) Lymph # (Auto) Forrest # (Auto) Eos # (Auto) Baso # (Auto) Seg Neutrophils % Seg Neuts % (Manual) 79.0 H Lymphocytes % (Manual) 10.0 L Monocytes % (Manual) Basophils % (Manual) Nucleated RBC % 1.0 H Seg Neutrophils # Seg Neutrophils # Man 14.3 H Lymphocytes # (Manual) Monocytes # (Manual) Eosinophils # (Manual) 0.7 H Basophils # (Manual) PT INR APTT D-Dimer Heparin Anti-Xa Level ABG pH POC ABG pCO2 POC ABG pO2 ABG pO2 ABG HCO3 ABG O2 Saturation ABG Base Excess ABG Hemoglobin 7.7 L ABG Oxyhemoglobin ABG Sodium 130.3 L ABG Potassium 4.6 H ABG Chloride ABG Glucose Oxyhemoglobin Carboxyhemoglobin Sodium 136 L Potassium Chloride 96.0 L Carbon Dioxide BUN 76 H Creatinine 3.6 H Glucose POC Glucose Lactic Acid Calcium 7.4 L Phosphorus Magnesium Ferritin Direct Bilirubin AST ALT Alkaline Phosphatase Lactate Dehydrogenase Total Creatine Kinase C-Reactive Protein Total Protein Albumin Triglycerides Arterial Blood Glucose Arterial Blood Ionized Calcium 4.2 L Urine Creatinine Urine Chloride Vancomycin Trough Coronavirus (PCR) Crossmatch 07/10/20 07/11/20 07/11/20 13:24 04:08 06:52 WBC 26.0 H RBC 2.91 L Hgb 8.2 L Hct 24.8 L MCHC RDW 17.2 H Plt Count Lymph % (Auto) Forrest % (Auto) Lymph # (Auto) [place] # (Auto) Eos # (Auto) Baso # (Auto) Seg Neutrophils % Seg Neuts % (Manual) Lymphocytes % (Manual) 1.0 L Monocytes % (Manual) 11.0 H Basophils % (Manual) Nucleated RBC % Seg Neutrophils # Seg Neutrophils # Man 16.9 H Lymphocytes # (Manual) 0.3 L Monocytes # (Manual) 2.9 H Eosinophils # (Manual) 1.0 H Basophils # (Manual) PT INR APTT D-Dimer Heparin Anti-Xa Level ABG pH POC ABG pCO2 POC ABG pO2 ABG pO2 ABG HCO3 ABG O2 Saturation ABG Base Excess ABG Hemoglobin 8.5 L ABG Oxyhemoglobin ABG Sodium 130.6 L ABG Potassium 4.9 H ABG Chloride ABG Glucose 105 H Oxyhemoglobin Carboxyhemoglobin Sodium Potassium Chloride Carbon Dioxide BUN Creatinine Glucose POC Glucose Lactic Acid Calcium Phosphorus Magnesium Ferritin Direct Bilirubin AST ALT Alkaline Phosphatase Lactate Dehydrogenase Total Creatine Kinase C-Reactive Protein Total Protein Albumin Triglycerides Arterial Blood Glucose 105 H Arterial Blood Ionized Calcium 4.1 L Urine Creatinine Urine Chloride Vancomycin Trough Coronavirus (PCR) Crossmatch See Detail 07/11/20 07/11/20 07/11/20 06:52 08:48 11:39 WBC RBC Hgb Hct MCHC RDW Plt Count Lymph % (Auto) [place] % (Auto) Lymph # (Auto) [place] # (Auto) Eos # (Auto) Baso # (Auto) Seg Neutrophils % Seg Neuts % (Manual) Lymphocytes % (Manual) Monocytes % (Manual) Basophils % (Manual) Nucleated RBC % Seg Neutrophils # Seg Neutrophils # Man Lymphocytes # (Manual) Monocytes # (Manual) Eosinophils # (Manual) Basophils # (Manual) PT INR APTT D-Dimer Heparin Anti-Xa Level ABG pH POC ABG pCO2 POC ABG pO2 ABG pO2 ABG HCO3 ABG O2 Saturation ABG Base Excess ABG Hemoglobin ABG Oxyhemoglobin ABG Sodium ABG Potassium ABG Chloride ABG Glucose Oxyhemoglobin Carboxyhemoglobin Sodium 133 L 134 L Potassium 5.3 H Chloride 93.5 L 94.8 L Carbon Dioxide BUN 101 H 99 H Creatinine 4.5 H 4.6 H Glucose 102 H POC Glucose 116 H Lactic Acid Calcium 7.8 L 7.6 L Phosphorus Magnesium Ferritin Direct Bilirubin AST ALT Alkaline Phosphatase Lactate Dehydrogenase Total Creatine Kinase C-Reactive Protein Total Protein Albumin Triglycerides Arterial Blood Glucose Arterial Blood Ionized Calcium Urine Creatinine Urine Chloride Vancomycin Trough Coronavirus (PCR) Crossmatch 07/11/20 07/12/20 07/12/20 17:23 00:04 03:20 WBC RBC Hgb Hct MCHC RDW Plt Count Lymph % (Auto) [place] % (Auto) Lymph # (Auto) [place] # (Auto) Eos # (Auto) Baso # (Auto) Seg Neutrophils % Seg Neuts % (Manual) Lymphocytes % (Manual) Monocytes % (Manual) Basophils % (Manual) Nucleated RBC % Seg Neutrophils # Seg Neutrophils # Man Lymphocytes # (Manual) Monocytes # (Manual) Eosinophils # (Manual) Basophils # (Manual) PT INR APTT D-Dimer Heparin Anti-Xa Level ABG pH POC ABG pCO2 49.1 H POC ABG pO2 130.3 H ABG pO2 ABG HCO3 ABG O2 Saturation ABG Base Excess ABG Hemoglobin 8.7 L ABG Oxyhemoglobin ABG Sodium 135.2 L ABG Potassium 4.7 H ABG Chloride ABG Glucose 128 H Oxyhemoglobin Carboxyhemoglobin Sodium Potassium Chloride Carbon Dioxide BUN Creatinine Glucose POC Glucose 142 H 113 H Lactic Acid Calcium Phosphorus Magnesium Ferritin Direct Bilirubin AST ALT Alkaline Phosphatase Lactate Dehydrogenase Total Creatine Kinase C-Reactive Protein Total Protein Albumin Triglycerides Arterial Blood Glucose 128 H Arterial Blood Ionized Calcium 4.4 L Urine Creatinine Urine Chloride Vancomycin Trough Coronavirus (PCR) Crossmatch 07/12/20 07/12/20 07/12/20 03:40 03:40 04:00 WBC 24.3 H RBC 2.83 L Hgb 8.0 L Hct 24.9 L MCHC RDW 17.7 H Plt Count Lymph % (Auto) 5.6 L Forrest % (Auto) 7.4 H Lymph # (Auto) [place] # (Auto) 1.8 H Eos # (Auto) 0.7 H Baso # (Auto) Seg Neutrophils % 83.9 H Seg Neuts % (Manual) Lymphocytes % (Manual) Monocytes % (Manual) Basophils % (Manual) Nucleated RBC % Seg Neutrophils # 20.4 H Seg Neutrophils # Man Lymphocytes # (Manual) Monocytes # (Manual) Eosinophils # (Manual) Basophils # (Manual) PT INR APTT D-Dimer Heparin Anti-Xa Level ABG pH POC ABG pCO2 POC ABG pO2 ABG pO2 ABG HCO3 ABG O2 Saturation ABG Base Excess ABG Hemoglobin ABG Oxyhemoglobin ABG Sodium ABG Potassium ABG Chloride ABG Glucose Oxyhemoglobin Carboxyhemoglobin Sodium 134 L Potassium Chloride 95.5 L Carbon Dioxide BUN 79 H Creatinine 3.7 H Glucose 127 H POC Glucose Lactic Acid Calcium 7.8 L Phosphorus Magnesium Ferritin Direct Bilirubin AST ALT Alkaline Phosphatase Lactate Dehydrogenase Total Creatine Kinase C-Reactive Protein Total Protein Albumin Triglycerides 246 H Arterial Blood Glucose Arterial Blood Ionized Calcium Urine Creatinine Urine Chloride Vancomycin Trough Coronavirus (PCR) Crossmatch 07/12/20 07/12/20 07/12/20 05:48 11:50 17:29 WBC RBC Hgb Hct MCHC RDW Plt Count Lymph % (Auto) [place] % (Auto) Lymph # (Auto) [place] # (Auto) Eos # (Auto) Baso # (Auto) Seg Neutrophils % Seg Neuts % (Manual) Lymphocytes % (Manual) Monocytes % (Manual) Basophils % (Manual) Nucleated RBC % Seg Neutrophils # Seg Neutrophils # Man Lymphocytes # (Manual) Monocytes # (Manual) Eosinophils # (Manual) Basophils # (Manual) PT INR APTT D-Dimer Heparin Anti-Xa Level ABG pH POC ABG pCO2 POC ABG pO2 ABG pO2 ABG HCO3 ABG O2 Saturation ABG Base Excess ABG Hemoglobin ABG Oxyhemoglobin ABG Sodium ABG Potassium ABG Chloride ABG Glucose Oxyhemoglobin Carboxyhemoglobin Sodium Potassium Chloride Carbon Dioxide BUN Creatinine Glucose POC Glucose 136 H 113 H 110 H Lactic Acid Calcium Phosphorus Magnesium Ferritin Direct Bilirubin AST ALT Alkaline Phosphatase Lactate Dehydrogenase Total Creatine Kinase C-Reactive Protein Total Protein Albumin Triglycerides Arterial Blood Glucose Arterial Blood Ionized Calcium Urine Creatinine Urine Chloride Vancomycin Trough Coronavirus (PCR) Crossmatch 07/12/20 07/13/20 07/13/20 23:43 03:11 06:59 WBC RBC Hgb Hct MCHC RDW Plt Count Lymph % (Auto) [place] % (Auto) Lymph # (Auto) [place] # (Auto) Eos # (Auto) Baso # (Auto) Seg Neutrophils % Seg Neuts % (Manual) Lymphocytes % (Manual) Monocytes % (Manual) Basophils % (Manual) Nucleated RBC % Seg Neutrophils # Seg Neutrophils # Man Lymphocytes # (Manual) Monocytes # (Manual) Eosinophils # (Manual) Basophils # (Manual) PT INR APTT D-Dimer Heparin Anti-Xa Level ABG pH POC ABG pCO2 49.0 H POC ABG pO2 69.6 L ABG pO2 ABG HCO3 ABG O2 Saturation ABG Base Excess ABG Hemoglobin 8.5 L ABG Oxyhemoglobin 90.5 L ABG Sodium 133.6 L ABG Potassium 5.1 H ABG Chloride ABG Glucose 104 H Oxyhemoglobin Carboxyhemoglobin Sodium 133 L Potassium 5.7 H Chloride 96.3 L Carbon Dioxide 20 L D BUN 102 H Creatinine 4.4 H Glucose 101 H POC Glucose 120 H Lactic Acid Calcium 7.9 L Phosphorus Magnesium Ferritin Direct Bilirubin AST 61 H ALT 85 H Alkaline Phosphatase 144 H Lactate Dehydrogenase Total Creatine Kinase C-Reactive Protein Total Protein 5.4 L Albumin 2.0 L Triglycerides Arterial Blood Glucose 104 H Arterial Blood Ionized Calcium 4.3 L Urine Creatinine Urine Chloride Vancomycin Trough Coronavirus (PCR) Crossmatch 07/13/20 07/13/20 07/13/20 08:48 12:14 15:12 WBC 27.5 H RBC 3.03 L Hgb 8.7 L Hct 27.0 L MCHC RDW 18.0 H Plt Count Lymph % (Auto) [place] % (Auto) Lymph # (Auto) [place] # (Auto) Eos # (Auto) Baso # (Auto) Seg Neutrophils % Seg Neuts % (Manual) Lymphocytes % (Manual) Monocytes % (Manual) Basophils % (Manual) Nucleated RBC % Seg Neutrophils # Seg Neutrophils # Man Lymphocytes # (Manual) Monocytes # (Manual) Eosinophils # (Manual) Basophils # (Manual) PT INR APTT D-Dimer Heparin Anti-Xa Level ABG pH POC ABG pCO2 POC ABG pO2 ABG pO2 ABG HCO3 ABG O2 Saturation ABG Base Excess ABG Hemoglobin ABG Oxyhemoglobin ABG Sodium ABG Potassium ABG Chloride ABG Glucose Oxyhemoglobin Carboxyhemoglobin Sodium Potassium 5.5 H Chloride Carbon Dioxide BUN 88 H Creatinine 3.8 H Glucose 133 H POC Glucose 134 H Lactic Acid Calcium 7.5 L Phosphorus Magnesium Ferritin Direct Bilirubin AST ALT Alkaline Phosphatase Lactate Dehydrogenase Total Creatine Kinase C-Reactive Protein Total Protein Albumin Triglycerides Arterial Blood Glucose Arterial Blood Ionized Calcium Urine Creatinine Urine Chloride Vancomycin Trough Coronavirus (PCR) Crossmatch 07/13/20 07/13/20 07/13/20 16:46 16:47 18:46 WBC RBC Hgb 7.4 L Hct 22.1 L MCHC RDW Plt Count Lymph % (Auto) [place] % (Auto) Lymph # (Auto) [place] # (Auto) Eos # (Auto) Baso # (Auto) Seg Neutrophils % Seg Neuts % (Manual) Lymphocytes % (Manual) Monocytes % (Manual) Basophils % (Manual) Nucleated RBC % Seg Neutrophils # Seg Neutrophils # Man Lymphocytes # (Manual) Monocytes # (Manual) Eosinophils # (Manual) Basophils # (Manual) PT INR APTT D-Dimer Heparin Anti-Xa Level ABG pH POC ABG pCO2 POC ABG pO2 ABG pO2 ABG HCO3 ABG O2 Saturation ABG Base Excess ABG Hemoglobin ABG Oxyhemoglobin ABG Sodium ABG Potassium ABG Chloride ABG Glucose Oxyhemoglobin Carboxyhemoglobin Sodium Potassium Chloride Carbon Dioxide BUN Creatinine Glucose POC Glucose 118 H Lactic Acid Calcium Phosphorus Magnesium Ferritin Direct Bilirubin AST ALT Alkaline Phosphatase Lactate Dehydrogenase Total Creatine Kinase C-Reactive Protein Total Protein Albumin Triglycerides Arterial Blood Glucose Arterial Blood Ionized Calcium Urine Creatinine Urine Chloride Vancomycin Trough Coronavirus (PCR) Crossmatch See Detail 07/13/20 07/14/20 07/14/20 23:34 04:25 12:21 WBC RBC Hgb Hct MCHC RDW Plt Count Lymph % (Auto) [place] % (Auto) Lymph # (Auto) [place] # (Auto) Eos # (Auto) Baso # (Auto) Seg Neutrophils % Seg Neuts % (Manual) Lymphocytes % (Manual) Monocytes % (Manual) Basophils % (Manual) Nucleated RBC % Seg Neutrophils # Seg Neutrophils # Man Lymphocytes # (Manual) Monocytes # (Manual) Eosinophils # (Manual) Basophils # (Manual) PT INR APTT D-Dimer Heparin Anti-Xa Level ABG pH POC ABG pCO2 POC ABG pO2 ABG pO2 ABG HCO3 ABG O2 Saturation ABG Base Excess ABG Hemoglobin 8.9 L ABG Oxyhemoglobin ABG Sodium 133.1 L ABG Potassium 4.7 H ABG Chloride ABG Glucose 113 H Oxyhemoglobin Carboxyhemoglobin Sodium Potassium Chloride Carbon Dioxide BUN Creatinine Glucose POC Glucose 109 H 109 H Lactic Acid Calcium Phosphorus Magnesium Ferritin Direct Bilirubin AST ALT Alkaline Phosphatase Lactate Dehydrogenase Total Creatine Kinase C-Reactive Protein Total Protein Albumin Triglycerides Arterial Blood Glucose 113 H Arterial Blood Ionized Calcium 4.4 L Urine Creatinine Urine Chloride Vancomycin Trough Coronavirus (PCR) Crossmatch 07/14/20 07/14/20 07/14/20 16:44 16:44 20:20 WBC 30.1 H RBC 2.60 L Hgb 7.4 L 5.6 L* Hct 23.0 L 18.1 L* MCHC RDW 18.0 H Plt Count Lymph % (Auto) [place] % (Auto) Lymph # (Auto) [place] # (Auto) Eos # (Auto) Baso # (Auto) Seg Neutrophils % Seg Neuts % (Manual) 78.0 H Lymphocytes % (Manual) 5.0 L Monocytes % (Manual) Basophils % (Manual) Nucleated RBC % Seg Neutrophils # Seg Neutrophils # Man 23.5 H Lymphocytes # (Manual) Monocytes # (Manual) 0.9 H Eosinophils # (Manual) Basophils # (Manual) PT 15.6 H INR 1.26 H APTT D-Dimer Heparin Anti-Xa Level ABG pH POC ABG pCO2 POC ABG pO2 ABG pO2 ABG HCO3 ABG O2 Saturation ABG Base Excess ABG Hemoglobin ABG Oxyhemoglobin ABG Sodium ABG Potassium ABG Chloride ABG Glucose Oxyhemoglobin Carboxyhemoglobin Sodium Potassium Chloride Carbon Dioxide BUN Creatinine Glucose POC Glucose Lactic Acid Calcium Phosphorus Magnesium Ferritin Direct Bilirubin AST ALT Alkaline Phosphatase Lactate Dehydrogenase Total Creatine Kinase C-Reactive Protein Total Protein Albumin Triglycerides Arterial Blood Glucose Arterial Blood Ionized Calcium Urine Creatinine Urine Chloride Vancomycin Trough Coronavirus (PCR) Crossmatch 07/14/20 07/14/20 07/15/20 21:19 23:45 04:13 WBC RBC Hgb Hct MCHC RDW Plt Count Lymph % (Auto) [place] % (Auto) Lymph # (Auto) [place] # (Auto) Eos # (Auto) Baso # (Auto) Seg Neutrophils % Seg Neuts % (Manual) Lymphocytes % (Manual) Monocytes % (Manual) Basophils % (Manual) Nucleated RBC % Seg Neutrophils # Seg Neutrophils # Man Lymphocytes # (Manual) Monocytes # (Manual) Eosinophils # (Manual) Basophils # (Manual) PT INR APTT D-Dimer Heparin Anti-Xa Level ABG pH POC ABG pCO2 POC ABG pO2 ABG pO2 ABG HCO3 ABG O2 Saturation ABG Base Excess ABG Hemoglobin 5.8 L 6.0 L ABG Oxyhemoglobin 93.8 L ABG Sodium 132.2 L 130.3 L ABG Potassium 5.5 H 5.8 H ABG Chloride ABG Glucose 118 H 122 H Oxyhemoglobin Carboxyhemoglobin Sodium Potassium Chloride Carbon Dioxide BUN Creatinine Glucose POC Glucose 126 H Lactic Acid Calcium Phosphorus Magnesium Ferritin Direct Bilirubin AST ALT Alkaline Phosphatase Lactate Dehydrogenase Total Creatine Kinase C-Reactive Protein Total Protein Albumin Triglycerides Arterial Blood Glucose 118 H 122 H Arterial Blood Ionized Calcium 4.3 L 4.2 L Urine Creatinine Urine Chloride Vancomycin Trough Coronavirus (PCR) Crossmatch 07/15/20 07/15/20 07/15/20 08:21 08:21 08:38 WBC 45.5 H* RBC 2.42 L Hgb 7.1 L Hct 21.5 L MCHC RDW 16.5 H Plt Count Lymph % (Auto) [place] % (Auto) Lymph # (Auto) [place] # (Auto) Eos # (Auto) Baso # (Auto) Seg Neutrophils % Seg Neuts % (Manual) 89.0 H Lymphocytes % (Manual) 7.0 L Monocytes % (Manual) Basophils % (Manual) Nucleated RBC % Seg Neutrophils # Seg Neutrophils # Man 40.5 H Lymphocytes # (Manual) Monocytes # (Manual) 1.8 H Eosinophils # (Manual) Basophils # (Manual) PT 17.6 H INR 1.46 H APTT D-Dimer Heparin Anti-Xa Level ABG pH POC ABG pCO2 POC ABG pO2 ABG pO2 ABG HCO3 ABG O2 Saturation ABG Base Excess ABG Hemoglobin ABG Oxyhemoglobin ABG Sodium ABG Potassium ABG Chloride ABG Glucose Oxyhemoglobin Carboxyhemoglobin Sodium 131 L Potassium 6.0 H Chloride 94.6 L Carbon Dioxide 20 L BUN 116 H Creatinine 4.6 H Glucose 123 H POC Glucose Lactic Acid Calcium 7.6 L Phosphorus Magnesium Ferritin Direct Bilirubin AST ALT Alkaline Phosphatase Lactate Dehydrogenase Total Creatine Kinase C-Reactive Protein Total Protein Albumin Triglycerides Arterial Blood Glucose Arterial Blood Ionized Calcium Urine Creatinine Urine Chloride Vancomycin Trough Coronavirus (PCR) Crossmatch 07/15/20 07/15/20 07/15/20 11:29 17:23 18:52 WBC RBC Hgb Hct MCHC RDW Plt Count Lymph % (Auto) [place] % (Auto) Lymph # (Auto) [place] # (Auto) Eos # (Auto) Baso # (Auto) Seg Neutrophils % Seg Neuts % (Manual) Lymphocytes % (Manual) Monocytes % (Manual) Basophils % (Manual) Nucleated RBC % Seg Neutrophils # Seg Neutrophils # Man Lymphocytes # (Manual) Monocytes # (Manual) Eosinophils # (Manual) Basophils # (Manual) PT INR APTT D-Dimer Heparin Anti-Xa Level ABG pH POC ABG pCO2 POC ABG pO2 ABG pO2 ABG HCO3 ABG O2 Saturation ABG Base Excess ABG Hemoglobin ABG Oxyhemoglobin ABG Sodium ABG Potassium ABG Chloride ABG Glucose Oxyhemoglobin Carboxyhemoglobin Sodium Potassium Chloride 97.9 L Carbon Dioxide BUN 78 H Creatinine 3.1 H Glucose 114 H POC Glucose 181 H 120 H Lactic Acid Calcium 7.3 L Phosphorus Magnesium Ferritin Direct Bilirubin AST ALT Alkaline Phosphatase Lactate Dehydrogenase Total Creatine Kinase C-Reactive Protein Total Protein Albumin Triglycerides Arterial Blood Glucose Arterial Blood Ionized Calcium Urine Creatinine Urine Chloride Vancomycin Trough Coronavirus (PCR) Crossmatch 07/15/20 07/16/20 07/16/20 18:52 01:10 03:38 WBC RBC Hgb 9.9 L 8.5 L Hct 29.8 L D 24.7 L MCHC RDW Plt Count Lymph % (Auto) [place] % (Auto) Lymph # (Auto) [place] # (Auto) Eos # (Auto) Baso # (Auto) Seg Neutrophils % Seg Neuts % (Manual) Lymphocytes % (Manual) Monocytes % (Manual) Basophils % (Manual) Nucleated RBC % Seg Neutrophils # Seg Neutrophils # Man Lymphocytes # (Manual) Monocytes # (Manual) Eosinophils # (Manual) Basophils # (Manual) PT INR APTT D-Dimer Heparin Anti-Xa Level ABG pH 7.314 L POC ABG pCO2 48.5 H POC ABG pO2 58.9 L ABG pO2 ABG HCO3 ABG O2 Saturation ABG Base Excess ABG Hemoglobin 8.7 L ABG Oxyhemoglobin 86.7 L ABG Sodium 132.7 L ABG Potassium 5.2 H ABG Chloride ABG Glucose 99 H Oxyhemoglobin Carboxyhemoglobin Sodium Potassium Chloride Carbon Dioxide BUN Creatinine Glucose POC Glucose Lactic Acid Calcium Phosphorus Magnesium Ferritin Direct Bilirubin AST ALT Alkaline Phosphatase Lactate Dehydrogenase Total Creatine Kinase C-Reactive Protein Total Protein Albumin Triglycerides Arterial Blood Glucose 99 H Arterial Blood Ionized Calcium 3.9 L Urine Creatinine Urine Chloride Vancomycin Trough Coronavirus (PCR) Crossmatch 07/16/20 07/16/20 07/16/20 04:28 04:28 07:29 WBC 48.9 H* RBC 2.86 L Hgb 8.6 L 7.9 L Hct 25.4 L 24.4 L MCHC RDW 15.6 H Plt Count Lymph % (Auto) [place] % (Auto) Lymph # (Auto) [place] # (Auto) Eos # (Auto) Baso # (Auto) Seg Neutrophils % Seg Neuts % (Manual) Lymphocytes % (Manual) Monocytes % (Manual) Basophils % (Manual) Nucleated RBC % Seg Neutrophils # Seg Neutrophils # Man Lymphocytes # (Manual) Monocytes # (Manual) Eosinophils # (Manual) Basophils # (Manual) PT INR APTT D-Dimer Heparin Anti-Xa Level ABG pH POC ABG pCO2 POC ABG pO2 ABG pO2 ABG HCO3 ABG O2 Saturation ABG Base Excess ABG Hemoglobin ABG Oxyhemoglobin ABG Sodium ABG Potassium ABG Chloride ABG Glucose Oxyhemoglobin Carboxyhemoglobin Sodium 136 L Potassium 5.4 H Chloride 95.0 L Carbon Dioxide BUN 85 H Creatinine 3.4 H Glucose 66 L POC Glucose Lactic Acid Calcium 6.8 L Phosphorus Magnesium Ferritin Direct Bilirubin AST ALT Alkaline Phosphatase Lactate Dehydrogenase Total Creatine Kinase C-Reactive Protein Total Protein Albumin Triglycerides Arterial Blood Glucose Arterial Blood Ionized Calcium Urine Creatinine Urine Chloride Vancomycin Trough Coronavirus (PCR) Crossmatch 07/16/20 07/16/20 07/16/20 11:52 18:06 18:08 WBC RBC Hgb 7.4 L Hct 22.5 L MCHC RDW Plt Count Lymph % (Auto) [place] % (Auto) Lymph # (Auto) [place] # (Auto) Eos # (Auto) Baso # (Auto) Seg Neutrophils % Seg Neuts % (Manual) Lymphocytes % (Manual) Monocytes % (Manual) Basophils % (Manual) Nucleated RBC % Seg Neutrophils # Seg Neutrophils # Man Lymphocytes # (Manual) Monocytes # (Manual) Eosinophils # (Manual) Basophils # (Manual) PT INR APTT D-Dimer Heparin Anti-Xa Level ABG pH POC ABG pCO2 POC ABG pO2 ABG pO2 ABG HCO3 ABG O2 Saturation ABG Base Excess ABG Hemoglobin ABG Oxyhemoglobin ABG Sodium ABG Potassium ABG Chloride ABG Glucose Oxyhemoglobin Carboxyhemoglobin Sodium Potassium Chloride Carbon Dioxide BUN Creatinine Glucose POC Glucose 124 H 108 H Lactic Acid Calcium Phosphorus Magnesium Ferritin Direct Bilirubin AST ALT Alkaline Phosphatase Lactate Dehydrogenase Total Creatine Kinase C-Reactive Protein Total Protein Albumin Triglycerides Arterial Blood Glucose Arterial Blood Ionized Calcium Urine Creatinine Urine Chloride Vancomycin Trough Coronavirus (PCR) Crossmatch 07/17/20 07/17/20 07/17/20 03:27 15:25 15:25 WBC 46.2 H* RBC 2.05 L Hgb 6.1 L Hct 18.4 L* MCHC RDW 15.6 H Plt Count Lymph % (Auto) Forrest % (Auto) Lymph # (Auto) Forrest # (Auto) Eos # (Auto) Baso # (Auto) Seg Neutrophils % Seg Neuts % (Manual) 87.0 H Lymphocytes % (Manual) 3.0 L Monocytes % (Manual) Basophils % (Manual) Nucleated RBC % Seg Neutrophils # Seg Neutrophils # Man 40.2 H Lymphocytes # (Manual) Monocytes # (Manual) 3.2 H Eosinophils # (Manual) Basophils # (Manual) PT 18.2 H INR 1.52 H APTT D-Dimer Heparin Anti-Xa Level ABG pH 7.313 L POC ABG pCO2 50.9 H POC ABG pO2 ABG pO2 ABG HCO3 ABG O2 Saturation ABG Base Excess ABG Hemoglobin 7.5 L ABG Oxyhemoglobin ABG Sodium 131.8 L ABG Potassium 4.6 H ABG Chloride ABG Glucose 105 H Oxyhemoglobin Carboxyhemoglobin Sodium Potassium Chloride Carbon Dioxide BUN Creatinine Glucose POC Glucose Lactic Acid Calcium Phosphorus Magnesium Ferritin Direct Bilirubin AST ALT Alkaline Phosphatase Lactate Dehydrogenase Total Creatine Kinase C-Reactive Protein Total Protein Albumin Triglycerides Arterial Blood Glucose 105 H Arterial Blood Ionized Calcium 3.9 L Urine Creatinine Urine Chloride Vancomycin Trough Coronavirus (PCR) Crossmatch 07/17/20 07/18/20 07/18/20 Unknown 03:10 05:06 WBC 37.9 H RBC 2.91 L Hgb 8.5 L Hct 25.6 L D MCHC RDW Plt Count Lymph % (Auto) Forrest % (Auto) Lymph # (Auto) Forrest # (Auto) Eos # (Auto) Baso # (Auto) Seg Neutrophils % Seg Neuts % (Manual) Lymphocytes % (Manual) Monocytes % (Manual) Basophils % (Manual) Nucleated RBC % Seg Neutrophils # Seg Neutrophils # Man Lymphocytes # (Manual) Monocytes # (Manual) Eosinophils # (Manual) Basophils # (Manual) PT INR APTT D-Dimer Heparin Anti-Xa Level ABG pH POC ABG pCO2 POC ABG pO2 114.9 H ABG pO2 ABG HCO3 ABG O2 Saturation ABG Base Excess ABG Hemoglobin 8.6 L ABG Oxyhemoglobin ABG Sodium 130.6 L ABG Potassium 4.9 H ABG Chloride ABG Glucose Oxyhemoglobin Carboxyhemoglobin Sodium Potassium Chloride Carbon Dioxide BUN Creatinine Glucose POC Glucose Lactic Acid Calcium Phosphorus Magnesium Ferritin Direct Bilirubin AST ALT Alkaline Phosphatase Lactate Dehydrogenase Total Creatine Kinase C-Reactive Protein Total Protein Albumin Triglycerides Arterial Blood Glucose Arterial Blood Ionized Calcium 3.8 L Urine Creatinine Urine Chloride Vancomycin Trough Coronavirus (PCR) Crossmatch See Detail 07/18/20 07/19/20 07/19/20 05:06 00:06 03:57 WBC RBC Hgb Hct MCHC RDW Plt Count Lymph % (Auto) Forrest % (Auto) Lymph # (Auto) Forrest # (Auto) Eos # (Auto) Baso # (Auto) Seg Neutrophils % Seg Neuts % (Manual) Lymphocytes % (Manual) Monocytes % (Manual) Basophils % (Manual) Nucleated RBC % Seg Neutrophils # Seg Neutrophils # Man Lymphocytes # (Manual) Monocytes # (Manual) Eosinophils # (Manual) Basophils # (Manual) PT INR APTT D-Dimer Heparin Anti-Xa Level ABG pH POC ABG pCO2 POC ABG pO2 ABG pO2 ABG HCO3 ABG O2 Saturation ABG Base Excess ABG Hemoglobin 8.6 L ABG Oxyhemoglobin ABG Sodium 130.4 L ABG Potassium ABG Chloride ABG Glucose Oxyhemoglobin Carboxyhemoglobin Sodium Potassium 5.4 H Chloride Carbon Dioxide BUN 79 H Creatinine 3.2 H Glucose POC Glucose 69 L Lactic Acid Calcium 6.9 L Phosphorus Magnesium Ferritin Direct Bilirubin AST ALT 58 H Alkaline Phosphatase Lactate Dehydrogenase Total Creatine Kinase C-Reactive Protein Total Protein 4.3 L D Albumin 1.7 L Triglycerides 306 H Arterial Blood Glucose Arterial Blood Ionized Calcium 3.9 L Urine Creatinine Urine Chloride Vancomycin Trough Coronavirus (PCR) Crossmatch 07/19/20 07/19/20 07/19/20 05:22 09:15 09:15 WBC 32.5 H RBC 2.57 L Hgb 7.8 L Hct 22.8 L MCHC RDW 15.3 H Plt Count Lymph % (Auto) Forrest % (Auto) Lymph # (Auto) Forrest # (Auto) Eos # (Auto) Baso # (Auto) Seg Neutrophils % Seg Neuts % (Manual) Lymphocytes % (Manual) Monocytes % (Manual) Basophils % (Manual) Nucleated RBC % Seg Neutrophils # Seg Neutrophils # Man Lymphocytes # (Manual) Monocytes # (Manual) Eosinophils # (Manual) Basophils # (Manual) PT INR APTT D-Dimer Heparin Anti-Xa Level ABG pH POC ABG pCO2 POC ABG pO2 ABG pO2 ABG HCO3 ABG O2 Saturation ABG Base Excess ABG Hemoglobin ABG Oxyhemoglobin ABG Sodium ABG Potassium ABG Chloride ABG Glucose Oxyhemoglobin Carboxyhemoglobin Sodium 135 L Potassium Chloride 96.3 L Carbon Dioxide BUN 61 H Creatinine 2.8 H Glucose POC Glucose 64 L Lactic Acid Calcium 6.8 L Phosphorus Magnesium Ferritin Direct Bilirubin AST 54 H ALT 65 H Alkaline Phosphatase Lactate Dehydrogenase Total Creatine Kinase C-Reactive Protein Total Protein 4.3 L Albumin 1.8 L Triglycerides Arterial Blood Glucose Arterial Blood Ionized Calcium Urine Creatinine Urine Chloride Vancomycin Trough Coronavirus (PCR) Crossmatch 07/20/20 07/20/20 07/20/20 05:20 06:00 06:07 WBC 28.1 H RBC 2.53 L Hgb 7.7 L Hct 22.7 L MCHC RDW 15.5 H Plt Count Lymph % (Auto) Forrest % (Auto) Lymph # (Auto) Forrest # (Auto) Eos # (Auto) Baso # (Auto) Seg Neutrophils % Seg Neuts % (Manual) Lymphocytes % (Manual) Monocytes % (Manual) Basophils % (Manual) Nucleated RBC % Seg Neutrophils # Seg Neutrophils # Man Lymphocytes # (Manual) Monocytes # (Manual) Eosinophils # (Manual) Basophils # (Manual) PT INR APTT D-Dimer Heparin Anti-Xa Level ABG pH POC ABG pCO2 POC ABG pO2 ABG pO2 ABG HCO3 ABG O2 Saturation ABG Base Excess ABG Hemoglobin 6.3 L ABG Oxyhemoglobin ABG Sodium 130.0 L ABG Potassium ABG Chloride ABG Glucose 114 H Oxyhemoglobin Carboxyhemoglobin Sodium Potassium Chloride Carbon Dioxide BUN Creatinine Glucose POC Glucose 110 H Lactic Acid Calcium Phosphorus Magnesium Ferritin Direct Bilirubin AST ALT Alkaline Phosphatase Lactate Dehydrogenase Total Creatine Kinase C-Reactive Protein Total Protein Albumin Triglycerides Arterial Blood Glucose 114 H Arterial Blood Ionized Calcium 3.9 L Urine Creatinine Urine Chloride Vancomycin Trough Coronavirus (PCR) Crossmatch 07/20/20 07/21/20 07/21/20 17:19 05:02 05:40 WBC 32.9 H RBC 2.78 L Hgb 8.5 L Hct 25.2 L MCHC RDW 15.7 H Plt Count 74 L Lymph % (Auto) Forrest % (Auto) Lymph # (Auto) Forrest # (Auto) Eos # (Auto) Baso # (Auto) Seg Neutrophils % Seg Neuts % (Manual) Lymphocytes % (Manual) Monocytes % (Manual) Basophils % (Manual) Nucleated RBC % Seg Neutrophils # Seg Neutrophils # Man Lymphocytes # (Manual) Monocytes # (Manual) Eosinophils # (Manual) Basophils # (Manual) PT INR APTT D-Dimer Heparin Anti-Xa Level ABG pH POC ABG pCO2 POC ABG pO2 73.2 L ABG pO2 ABG HCO3 ABG O2 Saturation ABG Base Excess ABG Hemoglobin 9.1 L ABG Oxyhemoglobin 93.4 L ABG Sodium ABG Potassium 3.1 L ABG Chloride ABG Glucose 112 H Oxyhemoglobin Carboxyhemoglobin Sodium Potassium Chloride Carbon Dioxide BUN Creatinine Glucose POC Glucose 137 H Lactic Acid Calcium Phosphorus Magnesium Ferritin Direct Bilirubin AST ALT Alkaline Phosphatase Lactate Dehydrogenase Total Creatine Kinase C-Reactive Protein Total Protein Albumin Triglycerides Arterial Blood Glucose 112 H Arterial Blood Ionized Calcium Urine Creatinine Urine Chloride Vancomycin Trough Coronavirus (PCR) Crossmatch 07/22/20 07/22/20 07/22/20 04:11 16:00 16:00 WBC 38.7 H RBC 2.72 L Hgb 8.1 L Hct 24.5 L MCHC RDW 16.1 H Plt Count Lymph % (Auto) Forrest % (Auto) Lymph # (Auto) Forrest # (Auto) Eos # (Auto) Baso # (Auto) Seg Neutrophils % Seg Neuts % (Manual) Lymphocytes % (Manual) Monocytes % (Manual) Basophils % (Manual) Nucleated RBC % Seg Neutrophils # Seg Neutrophils # Man Lymphocytes # (Manual) Monocytes # (Manual) Eosinophils # (Manual) Basophils # (Manual) PT INR APTT D-Dimer Heparin Anti-Xa Level ABG pH POC ABG pCO2 POC ABG pO2 67.7 L ABG pO2 ABG HCO3 ABG O2 Saturation ABG Base Excess ABG Hemoglobin 7.4 L ABG Oxyhemoglobin 91.7 L ABG Sodium ABG Potassium 2.9 L ABG Chloride ABG Glucose 105 H Oxyhemoglobin Carboxyhemoglobin Sodium Potassium Chloride Carbon Dioxide BUN Creatinine Glucose POC Glucose Lactic Acid Calcium Phosphorus Magnesium Ferritin Direct Bilirubin AST ALT Alkaline Phosphatase Lactate Dehydrogenase Total Creatine Kinase C-Reactive Protein Total Protein Albumin Triglycerides 197 H Arterial Blood Glucose 105 H Arterial Blood Ionized Calcium Urine Creatinine Urine Chloride Vancomycin Trough Coronavirus (PCR) Crossmatch 07/23/20 07/23/20 07/23/20 04:56 11:49 Unknown WBC RBC Hgb Hct MCHC RDW Plt Count Lymph % (Auto) Forrest % (Auto) Lymph # (Auto) Forrest # (Auto) Eos # (Auto) Baso # (Auto) Seg Neutrophils % Seg Neuts % (Manual) Lymphocytes % (Manual) Monocytes % (Manual) Basophils % (Manual) Nucleated RBC % Seg Neutrophils # Seg Neutrophils # Man Lymphocytes # (Manual) Monocytes # (Manual) Eosinophils # (Manual) Basophils # (Manual) PT INR APTT D-Dimer Heparin Anti-Xa Level ABG pH POC ABG pCO2 POC ABG pO2 75.7 L ABG pO2 ABG HCO3 ABG O2 Saturation ABG Base Excess ABG Hemoglobin 9.3 L ABG Oxyhemoglobin ABG Sodium ABG Potassium 3.1 L ABG Chloride 108.0 H ABG Glucose 101 H Oxyhemoglobin Carboxyhemoglobin Sodium Potassium 3.1 L D Chloride Carbon Dioxide BUN 36 H Creatinine 2.1 H Glucose 103 H POC Glucose 107 H Lactic Acid Calcium Phosphorus Magnesium Ferritin Direct Bilirubin AST ALT Alkaline Phosphatase Lactate Dehydrogenase Total Creatine Kinase C-Reactive Protein Total Protein Albumin Triglycerides Arterial Blood Glucose 101 H Arterial Blood Ionized Calcium Urine Creatinine Urine Chloride Vancomycin Trough Coronavirus (PCR) Crossmatch 07/24/20 07/24/20 07/24/20 06:40 06:40 20:38 WBC 31.4 H RBC 2.37 L Hgb 7.2 L Hct 21.7 L MCHC RDW 17.0 H Plt Count Lymph % (Auto) Forrest % (Auto) Lymph # (Auto) Forrest # (Auto) Eos # (Auto) Baso # (Auto) Seg Neutrophils % Seg Neuts % (Manual) 85.0 H Lymphocytes % (Manual) 6.0 L Monocytes % (Manual) Basophils % (Manual) Nucleated RBC % Seg Neutrophils # Seg Neutrophils # Man 26.7 H Lymphocytes # (Manual) Monocytes # (Manual) 0.9 H Eosinophils # (Manual) Basophils # (Manual) 0.3 H PT INR APTT D-Dimer Heparin Anti-Xa Level ABG pH POC ABG pCO2 POC ABG pO2 ABG pO2 ABG HCO3 ABG O2 Saturation ABG Base Excess ABG Hemoglobin ABG Oxyhemoglobin ABG Sodium ABG Potassium ABG Chloride ABG Glucose Oxyhemoglobin Carboxyhemoglobin Sodium Potassium 3.1 L Chloride Carbon Dioxide BUN 46 H Creatinine 2.5 H Glucose 109 H POC Glucose Lactic Acid Calcium Phosphorus Magnesium Ferritin Direct Bilirubin AST 46 H ALT 74 H Alkaline Phosphatase 180 H Lactate Dehydrogenase Total Creatine Kinase C-Reactive Protein Total Protein 4.6 L Albumin 2.0 L Triglycerides Arterial Blood Glucose Arterial Blood Ionized Calcium Urine Creatinine Urine Chloride Vancomycin Trough Coronavirus (PCR) Crossmatch See Detail 07/24/20 07/25/20 07/25/20 20:40 05:39 05:39 WBC 26.6 H RBC 2.79 L Hgb 8.5 L Hct 25.6 L MCHC RDW 16.1 H Plt Count Lymph % (Auto) Forrest % (Auto) Lymph # (Auto) Forrest # (Auto) Eos # (Auto) Baso # (Auto) Seg Neutrophils % Seg Neuts % (Manual) 72.0 H Lymphocytes % (Manual) 2.0 L Monocytes % (Manual) Basophils % (Manual) 3.0 H Nucleated RBC % 1.0 H Seg Neutrophils # Seg Neutrophils # Man 19.2 H Lymphocytes # (Manual) 0.5 L Monocytes # (Manual) 1.6 H Eosinophils # (Manual) 0.5 H Basophils # (Manual) 0.8 H PT 15.3 H INR 1.21 H APTT D-Dimer Heparin Anti-Xa Level ABG pH POC ABG pCO2 POC ABG pO2 ABG pO2 ABG HCO3 ABG O2 Saturation ABG Base Excess ABG Hemoglobin ABG Oxyhemoglobin ABG Sodium ABG Potassium ABG Chloride ABG Glucose Oxyhemoglobin Carboxyhemoglobin Sodium Potassium Chloride Carbon Dioxide BUN 55 H Creatinine 2.9 H Glucose POC Glucose Lactic Acid Calcium Phosphorus Magnesium Ferritin Direct Bilirubin AST ALT Alkaline Phosphatase Lactate Dehydrogenase Total Creatine Kinase C-Reactive Protein Total Protein Albumin Triglycerides Arterial Blood Glucose Arterial Blood Ionized Calcium Urine Creatinine Urine Chloride Vancomycin Trough Coronavirus (PCR) Crossmatch 07/25/20 07/26/20 07/26/20 17:22 08:46 08:46 WBC RBC Hgb Hct MCHC RDW Plt Count Lymph % (Auto) Forrest % (Auto) Lymph # (Auto) Forrest # (Auto) Eos # (Auto) Baso # (Auto) Seg Neutrophils % Seg Neuts % (Manual) Lymphocytes % (Manual) Monocytes % (Manual) Basophils % (Manual) Nucleated RBC % Seg Neutrophils # Seg Neutrophils # Man Lymphocytes # (Manual) Monocytes # (Manual) Eosinophils # (Manual) Basophils # (Manual) PT INR APTT D-Dimer Heparin Anti-Xa Level ABG pH POC ABG pCO2 POC ABG pO2 ABG pO2 ABG HCO3 ABG O2 Saturation ABG Base Excess ABG Hemoglobin ABG Oxyhemoglobin ABG Sodium ABG Potassium ABG Chloride ABG Glucose Oxyhemoglobin Carboxyhemoglobin Sodium Potassium Chloride Carbon Dioxide 31 H BUN 37 H Creatinine 2.2 H Glucose POC Glucose 65 L Lactic Acid Calcium 8.2 L Phosphorus Magnesium Ferritin Direct Bilirubin AST ALT Alkaline Phosphatase Lactate Dehydrogenase Total Creatine Kinase C-Reactive Protein Total Protein Albumin Triglycerides 166 H Arterial Blood Glucose Arterial Blood Ionized Calcium Urine Creatinine Urine Chloride Vancomycin Trough Coronavirus (PCR) Crossmatch 07/26/20 07/27/20 07/27/20 Unknown 04:00 07:09 WBC 24.6 H 27.1 H RBC 2.68 L 2.74 L Hgb 8.3 L 8.3 L Hct 24.7 L 25.3 L MCHC RDW 16.3 H 17.2 H Plt Count Lymph % (Auto) Forrest % (Auto) Lymph # (Auto) Forrest # (Auto) Eos # (Auto) Baso # (Auto) Seg Neutrophils % Seg Neuts % (Manual) 82.0 H 85.0 H Lymphocytes % (Manual) 5.0 L 4.0 L Monocytes % (Manual) 8.0 H Basophils % (Manual) Nucleated RBC % Seg Neutrophils # Seg Neutrophils # Man 20.2 H 23.0 H Lymphocytes # (Manual) 1.1 L Monocytes # (Manual) 2.0 H 1.6 H Eosinophils # (Manual) 0.7 H 1.1 H Basophils # (Manual) 0.3 H PT INR APTT D-Dimer Heparin Anti-Xa Level ABG pH POC ABG pCO2 POC ABG pO2 ABG pO2 ABG HCO3 ABG O2 Saturation ABG Base Excess ABG Hemoglobin ABG Oxyhemoglobin ABG Sodium ABG Potassium ABG Chloride ABG Glucose Oxyhemoglobin Carboxyhemoglobin Sodium Potassium Chloride Carbon Dioxide BUN Creatinine Glucose POC Glucose 115 H Lactic Acid Calcium Phosphorus Magnesium Ferritin Direct Bilirubin AST ALT Alkaline Phosphatase Lactate Dehydrogenase Total Creatine Kinase C-Reactive Protein Total Protein Albumin Triglycerides Arterial Blood Glucose Arterial Blood Ionized Calcium Urine Creatinine Urine Chloride Vancomycin Trough Coronavirus (PCR) Crossmatch 07/27/20 07/27/20 07/28/20 21:45 22:36 00:05 WBC RBC Hgb 6.4 L Hct 19.8 L* MCHC RDW Plt Count Lymph % (Auto) [place] % (Auto) Lymph # (Auto) [place] # (Auto) Eos # (Auto) Baso # (Auto) Seg Neutrophils % Seg Neuts % (Manual) Lymphocytes % (Manual) Monocytes % (Manual) Basophils % (Manual) Nucleated RBC % Seg Neutrophils # Seg Neutrophils # Man Lymphocytes # (Manual) Monocytes # (Manual) Eosinophils # (Manual) Basophils # (Manual) PT INR APTT D-Dimer Heparin Anti-Xa Level ABG pH POC ABG pCO2 POC ABG pO2 ABG pO2 ABG HCO3 ABG O2 Saturation ABG Base Excess ABG Hemoglobin ABG Oxyhemoglobin ABG Sodium ABG Potassium ABG Chloride ABG Glucose Oxyhemoglobin Carboxyhemoglobin Sodium Potassium Chloride Carbon Dioxide BUN Creatinine Glucose POC Glucose 124 H Lactic Acid Calcium Phosphorus Magnesium Ferritin Direct Bilirubin AST ALT Alkaline Phosphatase Lactate Dehydrogenase Total Creatine Kinase C-Reactive Protein Total Protein Albumin Triglycerides Arterial Blood Glucose Arterial Blood Ionized Calcium Urine Creatinine Urine Chloride Vancomycin Trough Coronavirus (PCR) Crossmatch See Detail 07/28/20 07/28/20 07/28/20 04:00 06:27 12:24 WBC 30.3 H RBC 2.35 L Hgb 7.2 L Hct 21.2 L MCHC RDW 16.8 H Plt Count Lymph % (Auto) [place] % (Auto) Lymph # (Auto) [place] # (Auto) Eos # (Auto) Baso # (Auto) Seg Neutrophils % Seg Neuts % (Manual) Lymphocytes % (Manual) Monocytes % (Manual) Basophils % (Manual) Nucleated RBC % Seg Neutrophils # Seg Neutrophils # Man Lymphocytes # (Manual) Monocytes # (Manual) Eosinophils # (Manual) Basophils # (Manual) PT INR APTT D-Dimer Heparin Anti-Xa Level ABG pH POC ABG pCO2 POC ABG pO2 ABG pO2 ABG HCO3 ABG O2 Saturation ABG Base Excess ABG Hemoglobin ABG Oxyhemoglobin ABG Sodium ABG Potassium ABG Chloride ABG Glucose Oxyhemoglobin Carboxyhemoglobin Sodium Potassium Chloride Carbon Dioxide BUN Creatinine Glucose POC Glucose 107 H 110 H Lactic Acid Calcium Phosphorus Magnesium Ferritin Direct Bilirubin AST ALT Alkaline Phosphatase Lactate Dehydrogenase Total Creatine Kinase C-Reactive Protein Total Protein Albumin Triglycerides Arterial Blood Glucose Arterial Blood Ionized Calcium Urine Creatinine Urine Chloride Vancomycin Trough Coronavirus (PCR) Crossmatch 07/28/20 07/28/20 07/28/20 14:31 18:19 23:33 WBC RBC Hgb Hct MCHC RDW Plt Count Lymph % (Auto) [place] % (Auto) Lymph # (Auto) [place] # (Auto) Eos # (Auto) Baso # (Auto) Seg Neutrophils % Seg Neuts % (Manual) Lymphocytes % (Manual) Monocytes % (Manual) Basophils % (Manual) Nucleated RBC % Seg Neutrophils # Seg Neutrophils # Man Lymphocytes # (Manual) Monocytes # (Manual) Eosinophils # (Manual) Basophils # (Manual) PT INR APTT D-Dimer Heparin Anti-Xa Level ABG pH 7.333 L POC ABG pCO2 POC ABG pO2 ABG pO2 68.0 L ABG HCO3 ABG O2 Saturation 92.4 L ABG Base Excess -2.7 L ABG Hemoglobin 9.0 L ABG Oxyhemoglobin ABG Sodium ABG Potassium ABG Chloride ABG Glucose Oxyhemoglobin 89.9 L Carboxyhemoglobin Sodium Potassium Chloride Carbon Dioxide BUN Creatinine Glucose POC Glucose 117 H 113 H Lactic Acid Calcium Phosphorus Magnesium Ferritin Direct Bilirubin AST ALT Alkaline Phosphatase Lactate Dehydrogenase Total Creatine Kinase C-Reactive Protein Total Protein Albumin Triglycerides Arterial Blood Glucose Arterial Blood Ionized Calcium Urine Creatinine Urine Chloride Vancomycin Trough Coronavirus (PCR) Crossmatch 07/28/20 07/29/20 07/29/20 Unknown 04:39 04:39 WBC 38.6 H RBC 2.15 L Hgb 6.6 L Hct 19.9 L* MCHC RDW 17.5 H Plt Count Lymph % (Auto) 3.2 L Forrest % (Auto) Lymph # (Auto) Forrest # (Auto) 2.7 H Eos # (Auto) 0.8 H Baso # (Auto) 0.4 H Seg Neutrophils % 86.5 H Seg Neuts % (Manual) Lymphocytes % (Manual) Monocytes % (Manual) Basophils % (Manual) Nucleated RBC % Seg Neutrophils # 33.4 H Seg Neutrophils # Man Lymphocytes # (Manual) Monocytes # (Manual) Eosinophils # (Manual) Basophils # (Manual) PT INR APTT D-Dimer Heparin Anti-Xa Level ABG pH POC ABG pCO2 POC ABG pO2 ABG pO2 ABG HCO3 ABG O2 Saturation ABG Base Excess ABG Hemoglobin ABG Oxyhemoglobin ABG Sodium ABG Potassium ABG Chloride ABG Glucose Oxyhemoglobin Carboxyhemoglobin Sodium 135 L Potassium 3.2 L 3.1 L Chloride Carbon Dioxide BUN 35 H 42 H Creatinine 2.3 H 2.5 H Glucose 123 H 109 H POC Glucose Lactic Acid Calcium 7.2 L 7.5 L Phosphorus Magnesium Ferritin Direct Bilirubin AST ALT Alkaline Phosphatase Lactate Dehydrogenase Total Creatine Kinase C-Reactive Protein Total Protein Albumin Triglycerides Arterial Blood Glucose Arterial Blood Ionized Calcium Urine Creatinine Urine Chloride Vancomycin Trough Coronavirus (PCR) Crossmatch 07/29/20 07/29/20 07/29/20 05:36 11:51 17:42 WBC RBC Hgb Hct MCHC RDW Plt Count Lymph % (Auto) [place] % (Auto) Lymph # (Auto) [place] # (Auto) Eos # (Auto) Baso # (Auto) Seg Neutrophils % Seg Neuts % (Manual) Lymphocytes % (Manual) Monocytes % (Manual) Basophils % (Manual) Nucleated RBC % Seg Neutrophils # Seg Neutrophils # Man Lymphocytes # (Manual) Monocytes # (Manual) Eosinophils # (Manual) Basophils # (Manual) PT INR APTT D-Dimer Heparin Anti-Xa Level ABG pH POC ABG pCO2 POC ABG pO2 ABG pO2 ABG HCO3 ABG O2 Saturation ABG Base Excess ABG Hemoglobin ABG Oxyhemoglobin ABG Sodium ABG Potassium ABG Chloride ABG Glucose Oxyhemoglobin Carboxyhemoglobin Sodium Potassium Chloride Carbon Dioxide BUN Creatinine Glucose POC Glucose 111 H 127 H 117 H Lactic Acid Calcium Phosphorus Magnesium Ferritin Direct Bilirubin AST ALT Alkaline Phosphatase Lactate Dehydrogenase Total Creatine Kinase C-Reactive Protein Total Protein Albumin Triglycerides Arterial Blood Glucose Arterial Blood Ionized Calcium Urine Creatinine Urine Chloride Vancomycin Trough Coronavirus (PCR) Crossmatch 07/29/20 07/30/20 07/30/20 23:07 17:32 23:13 WBC RBC Hgb Hct MCHC RDW Plt Count Lymph % (Auto) [place] % (Auto) Lymph # (Auto) [place] # (Auto) Eos # (Auto) Baso # (Auto) Seg Neutrophils % Seg Neuts % (Manual) Lymphocytes % (Manual) Monocytes % (Manual) Basophils % (Manual) Nucleated RBC % Seg Neutrophils # Seg Neutrophils # Man Lymphocytes # (Manual) Monocytes # (Manual) Eosinophils # (Manual) Basophils # (Manual) PT INR APTT D-Dimer Heparin Anti-Xa Level ABG pH POC ABG pCO2 POC ABG pO2 ABG pO2 ABG HCO3 ABG O2 Saturation ABG Base Excess ABG Hemoglobin ABG Oxyhemoglobin ABG Sodium ABG Potassium ABG Chloride ABG Glucose Oxyhemoglobin Carboxyhemoglobin Sodium Potassium Chloride Carbon Dioxide BUN Creatinine Glucose POC Glucose 116 H 107 H Lactic Acid Calcium Phosphorus Magnesium Ferritin Direct Bilirubin AST ALT Alkaline Phosphatase Lactate Dehydrogenase Total Creatine Kinase C-Reactive Protein Total Protein Albumin Triglycerides Arterial Blood Glucose Arterial Blood Ionized Calcium Urine Creatinine Urine Chloride Vancomycin Trough Coronavirus (PCR) Crossmatch See Detail 07/30/20 07/31/20 07/31/20 Unknown 05:28 09:00 WBC 30.8 H RBC 2.39 L Hgb 7.3 L Hct 21.9 L MCHC RDW 16.7 H Plt Count Lymph % (Auto) [place] % (Auto) Lymph # (Auto) [place] # (Auto) Eos # (Auto) Baso # (Auto) Seg Neutrophils % Seg Neuts % (Manual) 85.0 H Lymphocytes % (Manual) 1.0 L Monocytes % (Manual) Basophils % (Manual) Nucleated RBC % 1.0 H Seg Neutrophils # Seg Neutrophils # Man 26.2 H Lymphocytes # (Manual) 0.3 L Monocytes # (Manual) 1.8 H Eosinophils # (Manual) Basophils # (Manual) PT INR APTT D-Dimer Heparin Anti-Xa Level ABG pH 7.241 L POC ABG pCO2 52.8 H POC ABG pO2 63.3 L ABG pO2 ABG HCO3 ABG O2 Saturation ABG Base Excess ABG Hemoglobin 7.6 L ABG Oxyhemoglobin ABG Sodium 133.6 L ABG Potassium ABG Chloride ABG Glucose 114 H Oxyhemoglobin Carboxyhemoglobin Sodium Potassium Chloride Carbon Dioxide BUN Creatinine Glucose POC Glucose Lactic Acid Calcium Phosphorus Magnesium Ferritin Direct Bilirubin AST ALT Alkaline Phosphatase Lactate Dehydrogenase Total Creatine Kinase C-Reactive Protein Total Protein Albumin Triglycerides 184 H Arterial Blood Glucose 114 H Arterial Blood Ionized Calcium 4.4 L Urine Creatinine Urine Chloride Vancomycin Trough Coronavirus (PCR) Crossmatch 07/31/20 07/31/20 09:00 12:00 WBC RBC Hgb Hct MCHC RDW Plt Count Lymph % (Auto) [place] % (Auto) Lymph # (Auto) [place] # (Auto) Eos # (Auto) Baso # (Auto) Seg Neutrophils % Seg Neuts % (Manual) Lymphocytes % (Manual) Monocytes % (Manual) Basophils % (Manual) Nucleated RBC % Seg Neutrophils # Seg Neutrophils # Man Lymphocytes # (Manual) Monocytes # (Manual) Eosinophils # (Manual) Basophils # (Manual) PT INR APTT D-Dimer Heparin Anti-Xa Level ABG pH POC ABG pCO2 POC ABG pO2 ABG pO2 ABG HCO3 ABG O2 Saturation ABG Base Excess ABG Hemoglobin ABG Oxyhemoglobin ABG Sodium ABG Potassium ABG Chloride ABG Glucose Oxyhemoglobin Carboxyhemoglobin Sodium 136 L Potassium Chloride Carbon Dioxide BUN 46 H Creatinine 2.4 H Glucose POC Glucose 106 H Lactic Acid Calcium 7.7 L Phosphorus Magnesium Ferritin Direct Bilirubin AST ALT Alkaline Phosphatase Lactate Dehydrogenase Total Creatine Kinase C-Reactive Protein Total Protein Albumin Triglycerides Arterial Blood Glucose Arterial Blood Ionized Calcium Urine Creatinine Urine Chloride Vancomycin Trough Coronavirus (PCR) Crossmatch Chest x-ray: pending Allied health notes reviewed: nursing
[2020-07-31] MEDS: AMIODARONE 900 MG in DEXTROSE 5% IN WATER 482 ML IV SCH (17:58)
--- NOTE | 2020-07-31 19:12 | Event Note ---
Date: 07/31/20 Would not recommend removing Vascath without positive blood cultures as the patient as anasarca and is difficult to gain access especially given the fact that he has an existing line in his right internal jugular vein. Would consider removing the right IJ line after having a PICC line placed. May consider changing the Vascath over wire to decrease the risk of complications.
[2020-08-01] MEDS: AMPICILLIN/NS 2 GM/100 ML 2 GM/100 ML BAG IV SCH (00:24)
[2020-08-01] MEDS: SODIUM HYPOCHLORITE, DAKIN'S 1/2 STRENGTH (0.25%) 473 ML TOPICAL SOLN TP SCH ×2 (00:27→09:30)
[2020-08-01] MEDS: fentaNYL DRIP Premix 2,000 MCG/100 ML BAG IV SCH ×5 (03:09→23:12)
[2020-08-01] MEDS: NORepinephrine/NS 4 MG-250 ML 4 MG/250 ML BAG IV SCH ×2 (04:59→16:27)
[2020-08-01 05:31] LABS: Hematocrit 20.5 % (35.5-45.6); Hemoglobin 6.8 gm/dl (11.8-15.2); Mean Corpuscular HGB Conc 33 % (32-34); Mean Corpuscular Volume 91 fl (84-94); Platelet Count 222 K/mm3 (140-440); Red Blood Count 2.26 M/mm3 (3.65-5.03); Red Cell Distribution Width 16.6 % (13.2-15.2)
[2020-08-01 05:39] LABS: Calcium 7.8 mg/dL (8.4-10.2)
[2020-08-01] MEDS: INSULIN REGULAR, HUMAN 100 UNITS/1 ML SUB-Q SCH ×3 (05:52→18:47)
[2020-08-01] MEDS: QUEtiapine 200 MG TAB PO SCH ×2 (09:25→21:39)
[2020-08-01] MEDS: SCOPOLAMINE TRANSDERMAL PATCH 72 HR TD SCH (09:25)
[2020-08-01] MEDS: ASCORBIC ACID 250 MG TAB PO SCH ×2 (09:25→21:39)
[2020-08-01] MEDS: AMIODARONE 200 MG TAB PO SCH ×2 (09:26→21:39)
[2020-08-01] MEDS: PANTOPRAZOLE 40 MG INJ IV SCH ×2 (09:26→21:39)
[2020-08-01] MEDS: ZINC SULFATE 220 MG CAP PO SCH ×2 (09:26→21:39)
[2020-08-01] MEDS: CHOLECALCIFEROL (VIT D3) 1000 UNIT (25 mcg) TAB PO SCH (09:26)
[2020-08-01] MEDS: DOCUSATE SODIUM 100 MG/10 ML ORAL LIQD FEEDTUBE SCH ×2 (09:27→21:13)
[2020-08-01] MEDS: POLYETHYLENE GLYCOL 3350 17 GM POWDER PO SCH (09:27)
[2020-08-01] MEDS ORDERED: SODIUM CHLORIDE 0.9% 500 ML 500 ML IV NR ×2 (09:37→13:08)
--- NOTE | 2020-08-01 09:45 | Progress Note ---
Assessment and Plan - Patient Problems (1) Acute renal failure Current Visit: Yes Status: Acute Qualifiers: Acute renal failure type: with acute tubular necrosis Qualified Code(s): N17.0 - Acute kidney failure with tubular necrosis Plan to address problem: Likely prerenal in nature secondary to new onset of COVID-19 pneumonia with worsening sepsis and hypotension. Concern for acute tubular necrosis. Has now been on HD with no significant findings of renal recovery at present time. He is also requiring extra isolated UF treatments to further optimize his volume status. No signs of renal recovery at this point. Concern for possible worsening sepsis and recommendations per ID for removal of vas catheter as well as right IJ. Unfortunately he will then not have any access for dialysis this patient still remains severely anasarcic and hemodialysis dependent with essentially no urine output. Will discuss with primary team but his overall prognosis is poor at this time. Repeat blood cultures have been ordered at this time. Per vascular recommendations, would hold off on removing vascath without evidence of bacteremia but did recommend the possibility of exchanging over guide wire. Will discuss with primary attending. (2) Pneumonia due to COVID-19 virus Current Visit: Yes Status: Acute Plan to address problem: Management per infectious disease recommendations. (3) Acute respiratory failure with hypoxia Current Visit: Yes Status: Acute Plan to address problem: Patient underwent tracheostomy. Further management per pulmonary. (4) Anemia Current Visit: Yes Status: Acute Qualifiers: Other causes of anemia: acute posthemorrhagic Plan to address problem: Transfuse to maintain Hgb >7.0. (5) Hyperkalemia Current Visit: Yes Status: Acute Plan to address problem: Manage with HD. Subjective Date of service: 08/01/20 Principal diagnosis: ARF; Septic Shock; COVID-19 PNA; Atrial fibrillation; Obesity Interval history: Patient remains intubated at this time on pressor support with Levophed at 8 mcg/kg/min. Worsening respiratory status and increased FiO2 with changes made to vent settings. Infectious disease note reviewed with recommendations for removal of femoral Vas-Cath and right IJ in the setting of continued sepsis and pressor support. Patient is also pending transfer to LTAC. No signs of renal recovery at this time and his overall prognosis remains very poor. Discussed case with vascular surgery and ICU attending. Per vascular surgery evaluation, they do not recommend removal of vascath without positive blood cultures, given the level of patients edema and difficulty with obtaining an access. Per note did suggest exchanging the vascath over guidewire. Objective - Vital Signs Vital signs: Vital Signs - 12hr 07/31/20 07/31/20 07/31/20 22:00 22:30 23:00 Temperature Pulse Rate 85 84 86 Pulse Rate [ From Monitor] Respiratory 30 H 30 H 30 H Rate Blood Pressure 114/55 110/52 114/53 O2 Sat by Pulse 99 99 99 Oximetry O2 Sat by Pulse Oximetry [ Assessment] 07/31/20 08/01/20 08/01/20 23:30 00:00 00:30 Temperature 98.4 F Pulse Rate 83 80 80 Pulse Rate [ 80 From Monitor] Respiratory 30 H 30 H 30 H Rate Blood Pressure 110/52 112/53 113/55 O2 Sat by Pulse 99 99 99 Oximetry O2 Sat by Pulse Oximetry [ Assessment] 08/01/20 08/01/20 08/01/20 00:56 01:00 01:30 Temperature Pulse Rate 83 85 81 Pulse Rate [ From Monitor] Respiratory 30 H 30 H Rate Blood Pressure 107/54 111/47 112/54 O2 Sat by Pulse 99 99 99 Oximetry O2 Sat by Pulse Oximetry [ Assessment] 08/01/20 08/01/20 08/01/20 02:00 02:30 03:00 Temperature Pulse Rate 81 82 82 Pulse Rate [ From Monitor] Respiratory 30 H 30 H 30 H Rate Blood Pressure 114/56 115/55 114/57 O2 Sat by Pulse 99 99 99 Oximetry O2 Sat by Pulse Oximetry [ Assessment] 08/01/20 08/01/20 08/01/20 03:05 03:30 04:00 Temperature 98.9 F Pulse Rate 84 83 Pulse Rate [ 80 From Monitor] Respiratory 30 H 20 Rate Blood Pressure 113/55 120/60 O2 Sat by Pulse 98 99 Oximetry O2 Sat by Pulse 98 Oximetry [ Assessment] 08/01/20 08/01/20 08/01/20 04:30 05:00 05:30 Temperature Pulse Rate 80 83 81 Pulse Rate [ From Monitor] Respiratory 30 H 30 H 30 H Rate Blood Pressure 113/57 103/48 114/55 O2 Sat by Pulse 99 98 99 Oximetry O2 Sat by Pulse Oximetry [ Assessment] 08/01/20 08/01/20 08/01/20 06:00 06:09 06:30 Temperature Pulse Rate 81 80 85 Pulse Rate [ From Monitor] Respiratory 30 H 30 H Rate Blood Pressure 114/54 114/54 107/47 O2 Sat by Pulse 99 99 98 Oximetry O2 Sat by Pulse Oximetry [ Assessment] 08/01/20 08/01/20 08:00 08:08 Temperature 98.5 F Pulse Rate 82 Pulse Rate [ From Monitor] Respiratory Rate Blood Pressure 107/51 O2 Sat by Pulse 98 Oximetry O2 Sat by Pulse 98 Oximetry [ Assessment] - General Appearance General appearance: chronically ill, sedated on ventilator, intubated EENT: ATNC Neck: no JVD Respiratory: Present: Decreased Breath Sounds Cardiology: regular Gastrointestinal: normal Integumentary: no rash Musculoskeletal: other (marked ansarca, 2-3+ pitting edema ) - Lab 08/01/20 05:00 08/01/20 05:00 Most recent lab results ABG pH 7.330 (7.320-7.450) 08/01/20 04:48 ABG pCO2 44.4 mm Hg 07/28/20 14:31 ABG pO2 68.0 mm Hg (80.0-90.0) L 07/28/20 14:31 ABG HCO3 23.1 mmol/L (20.0-26.0) 07/28/20 14:31 ABG O2 Saturation 98.4 (0-100) 08/01/20 04:48 Calcium 7.8 mg/dL (8.4-10.2) L 08/01/20 05:00 Phosphorus 9.40 mg/dL (2.5-4.5) H 06/30/20 03:50 Magnesium 2.70 mg/dL (1.7-2.3) H 06/18/20 20:33 Urine Creatinine 192.4 mg/dL (0.1-20.0) H 06/18/20 15:00 Urine Sodium 28 mmol/L 06/18/20 15:00 - Allied health notes Allied health notes reviewed: nursing Medications & Allergies - Medications Allergies/Adverse Reactions: Allergies No Known Allergies Allergy (Unverified 06/17/20 14:24) Home Medications: Home Medications Medication Instructions Recorded Confirmed Last Taken Type Losartan/Hydrochlorothiazide 1 each PO QDAY 06/19/20 06/19/20 Unknown History [Losartan-Hctz 100-25 mg Tab] amLODIPine [Norvasc] 5 mg PO DAILY 06/19/20 06/19/20 Unknown History Active Medications: Generic Name Dose Route Start Last Admin Trade Name Freq PRN Reason Stop Dose Admin Acetaminophen 650 mg 06/17/20 14:17 07/31/20 02:45 Acetaminophen 325 Mg Tab PO 650 mg Q4H PRN Administration Pain MILD(1-3)/Fever >100.5/ROBERTS Albuterol 2.5 mg 07/19/20 12:15 Albuterol 2.5 Mg/3 Ml Nebu IH Q6HRT PRN Shortness Of Breath Alteplase, Recombinant 2 mg 07/27/20 18:40 Alteplase 2 Mg Inj IV PAM PRN LINE FLUSH Amiodarone HCl 200 mg 07/19/20 14:00 08/01/20 09:26 Amiodarone 200 Mg Tab PO 200 mg BID CONNOR Administration Lipase/Protease/Amylase 1 each 06/19/20 12:15 Lipase 10,500/Protease 25,000/Amylase 43,750 (Units) Dr Shad FEEDTUBE PRN PRN For Clogged Feeding Tube Ascorbic Acid 250 mg 06/17/20 22:00 08/01/20 09:25 Ascorbic Acid 250 Mg Tab PO 250 mg BID CONNOR Administration Cholecalciferol 1,000 unit 06/18/20 10:00 08/01/20 09:26 Cholecalciferol (Vit D3) 1000 Unit (25 Mcg) Tab PO 1,000 unit DAILY CONNOR Administration Dextrose 50 ml 07/26/20 22:00 07/27/20 06:42 Dextrose 50% In Water (25gm) 50 Ml Syringe IV 50 ml Q30MIN PRN Administration Hypoglycemia Protocol Docusate Sodium 100 mg 06/23/20 15:00 08/01/20 09:27 Docusate Sodium 100 Mg/10 Ml Oral Liqd FEEDTUBE Not Given BID CONNOR Fentanyl 50 mcg 06/18/20 01:02 07/27/20 16:59 Fentanyl 100 Mcg/2 Ml Inj IV 50 mcg Q10MIN PRN Administration ANALGESIA Heparin Sodium (Porcine) 5,000 unit 06/22/20 12:53 07/28/20 20:45 Heparin 10,000 Unit/1 Ml Vial IV 5,000 unit PAM PRN Administration hemodialysis Hydrophilic Ointment 1 applic 06/17/20 22:52 07/12/20 20:22 Lip Therapy Vaseline TP 1 applic Q2HR PRN Administration Dry Lips Propofol 1,000 mg in 100 mls @ 3.402 mls/hr 06/18/20 01:00 08/01/20 00:00 Diprivan 10 Mg/Ml IV 5 mcg/kg/min TITR CONNOR 3.402 mls/hr Titration Protocol 5 MCG/KG/MIN Fentanyl Citrate 2,000 mcg in 100 mls @ 8 mls/hr 06/18/20 02:00 08/01/20 06:25 Fentanyl Drip Premix IV 4 mcg/kg/hr TITR CONNOR 32 mls/hr Administration Protocol 1 MCG/KG/HR Norepinephrine 4 mg in 250 mls @ 7.5 mls/hr 07/08/20 02:06 08/01/20 04:59 Levophed Drip 4 Mg/Ns 250 Ml IV 10 mcg/min TITR CONNOR 37.5 mls/hr Administration Protocol 2 MCG/MIN Vasopressin 20 unit/ Sodium 101 mls @ 9.09 mls/hr 07/11/20 11:00 07/18/20 15:36 Chloride IV 0 units/min TITR CONNOR 0 mls/hr Titration Protocol 0.03 UNITS/MIN Ampicillin Sodium 2 gm in 100 mls @ 100 mls/hr 07/21/20 12:00 08/01/20 01:25 Ampicillin/Ns 2 Gm/100 Ml IV 08/01/20 12:59 Infused Q12H [facility] Infusion Protocol Amiodarone HCl 900 mg/ 500 mls @ 33.333 mls/hr 07/27/20 17:00 07/31/20 17:58 Dextrose IV 0.5 mg/min DIRECT CONNOR 16.667 mls/hr Administration Protocol 1 MG/MIN Sodium Chloride 100 mls @ 999 mls/hr 07/27/20 18:40 Nacl 0.9% IV PAM PRN Hypotension Sodium Chloride 500 mls @ 0 mls/hr 08/01/20 09:37 Nacl 0.9% 500 Ml IV 08/01/20 09:38 ONCE ONE As Directed Insulin Human Regular 0 units 06/18/20 12:00 08/01/20 05:52 Insulin Regular, Human 100 Units/1 Ml SUB-Q Not Given Q6HR [facility] Protocol Multi-Ingred Cream/Lotion/Oil/Oint 1 applic 06/17/20 22:52 07/12/20 20:22 Mineral Oil/Petrolatum, White Ophth Oint 3.5 Gm OU 1 applic Q4HR PRN Administration Dry Eye(s) Ondansetron HCl 4 mg 06/17/20 14:17 Ondansetron 4 Mg/2 Ml Inj IV Q8H PRN Nausea And Vomiting Pantoprazole Sodium 40 mg 07/16/20 22:00 08/01/20 09:26 Pantoprazole 40 Mg Inj IV 40 mg BID CONNOR Administration Polyethylene Glycol 17 gm 06/23/20 15:00 08/01/20 09:27 Polyethylene Glycol 3350 17 Gm Powder PO Not Given QDAY CONNOR Quetiapine Fumarate 200 mg 06/28/20 13:00 08/01/20 09:25 Quetiapine 200 Mg Tab PO 200 mg BID CONNOR Administration Scopolamine 1 each 07/29/20 14:00 08/01/20 09:25 Scopolamine Transdermal Patch 72 Hr TD 1 each Q3D CONNOR Administration Simple Syrup 15 ml 06/19/20 12:15 07/26/20 13:55 Simple Syrup 15 Ml FEEDTUBE 15 ml PRN PRN Administration Hypoglycemia Simple Syrup 30 ml 06/19/20 12:15 07/19/20 06:04 Simple Syrup 15 Ml FEEDTUBE 30 ml PRN PRN Administration Hypoglycemia Sodium Bicarbonate 325 mg 06/19/20 12:15 07/11/20 20:00 Sodium Bicarbonate 325 Mg Tab FEEDTUBE 325 mg PRN PRN Administration For Clogged Feeding Tube Sodium Chloride 10 ml 06/17/20 22:00 08/01/20 09:28 Sodium Chloride 0.9% 10 Ml Flush Syringe IV 10 ml BID CONNOR Administration Sodium Chloride 10 ml 06/17/20 14:17 07/30/20 09:46 Sodium Chloride 0.9% 10 Ml Flush Syringe IV 10 ml PRN PRN Administration LINE FLUSH Sodium Hypochlorite 1 applic 07/20/20 10:00 08/01/20 09:30 Sodium Hypochlorite, Dakin's 1/2 Strength (0.25%) 473 Ml Topical Soln TP 1 applicatio BID CONNOR Administration Zinc Sulfate 220 mg 06/17/20 22:00 08/01/20 09:26 Zinc Sulfate 220 Mg Cap PO 220 mg BID CONNOR Administration
--- NOTE | 2020-08-01 11:47 | Event Note ---
Date: 08/01/20 Reviewed chart. Blood cultures are not positive. This is a 60 year old intubated severely morbidly obese patient with COVID 19 in the ICU with renal failure requiring hemodialysis who is on pressors. Removing the Vas-Cath will place the patient at high risk of morbidity when placing a new Vas-Cath. In addition, blood cultures are not positive. If blood cultures are positive, consider Vas-Cath exchange and clean the wire with ChloraPrep during the exchange to attempt to decrease bioburden.
--- NOTE | 2020-08-01 12:31 | Progress Note ---
Assessment and Plan Cultures: SARS CoV2 PCR: Positive 06/17/2020 blood culture: No growth 06/17/2020 sputum culture: No growth 07/15/2020 blood culture: No growth 07/15/2020 fungal blood culture: Enterococcus faecalis 07/15/2020 tracheal aspirate culture: Usual respiratory otf 07/18/2020 blood culture: no growth A/P: 59-year-old male with obesity, obesity hypoventilation syndrome: #Severe sepsis with septic shock, ?also component of hemorrhagic shock. Remains on pressors, leukocytosis, no fever for 36 hours #Enterococcus bacteremia: 07/15/2020 fungal blood culture: grew Enterococcus. ?gut translocation. Interestingly other blood cultures from that day were negative. CT abdomen showed some colitis. Since repeat blood cultures negative, will finish 14 days of abx. #Anemia, GI bleed: GI on board. #Critical COVID-19 pneumonia: s/p abx, steroids and remdesivir. #Acute hypoxic respiratory failure: on the vent. Also with pneumomediastinum, subcutaneous emphysema. #Leukemoid reaction: likely multifactorial. #GIRISH: remains on HD per nephrology. Renally dose abx. #Sacral decubitus: s/p debridement by Dr. Kirk on 07/20/2020. Recs: -Left femoral Vas-Cath cannot be removed per IR -F/u Repeat blood cultures, sputum cultures, urine culture -Continue IV Ampicillin, renally dosed, complete 14 days ending 08/01/2020 -monitor fever and WBC -If worsening sepsis vancomycin and cefepime Guarded prognosis Bere Hampton MD [facility] ([facility]) Office [phone] Subjective Date of service: 08/01/20 Principal diagnosis: ARF; Septic Shock; COVID-19 PNA; Atrial fibrillation; Obesity Interval history: Patient remains on the ventilator via trach, FiO2 50%, no fever for 36 hours, on Levophed at 5 Objective - Exam Narrative Exam: General appearance: Sedated on the ventilator Eyes: anicteric sclerae, moist conjunctivae; no lid-lag; PERRLA HENT: Normocephalic, Atraumatic; normal external ears, nares open, oropharynx limited Neck: Trach in place Lungs: Bilateral rhonchi CV: RRR no murmur Abdomen: Soft nontender abdominal wall edema Extremities: Bilateral leg edema Skin: No rash. Psych: Sedated Neuro: Sedated - Constitutional Vitals: Vital Signs Temp Pulse Resp BP Pulse Ox 98.5 F 100 H 30 H 101/46 94 08/01/20 08:00 08/01/20 11:08 08/01/20 06:30 08/01/20 11:08 08/01/20 11:08 Temperature -Last 24 Hours Temperature 98.5 F Temperature 98.9 F Temperature 98.4 F Temperature 97.8 F Temperature 98.2 F - Labs CBC & Chem 7: 08/01/20 05:00 08/01/20 05:00 Labs: Abnormal lab results 07/30/20 07/31/20 07/31/20 Range/Units 23:13 09:00 16:17 WBC (4.5-11.0) K/mm3 RBC (3.65-5.03) M/mm3 Hgb (11.8-15.2) gm/dl Hct (35.5-45.6) % RDW (13.2-15.2) % Seg Neuts % (Manual) 85.0 H (40.0-70.0) % Lymphocytes % (Manual) 1.0 L (13.4-35.0) % Nucleated RBC % 1.0 H (0.0-0.9) % Seg Neutrophils # Man 26.2 H (1.8-7.7) K/mm3 Lymphocytes # (Manual) 0.3 L (1.2-5.4) K/mm3 Monocytes # (Manual) 1.8 H (0.0-0.8) K/mm3 POC ABG pO2 148.6 H (83-108) mmHg ABG Hemoglobin 6.7 L (12.0-17.5) ABG Sodium 132.3 L (136.0-145.0) mmol/L ABG Glucose 115 H (65-95) mg/dL Sodium (137-145) mmol/L BUN (9-20) mg/dL Creatinine (0.8-1.3) mg/dL Glucose (75-100) mg/dL POC Glucose (70-105) mg/dL Calcium (8.4-10.2) mg/dL Arterial Blood Glucose 115 H (65-95) mg/dL Arterial Blood Ionized Calcium 4.2 L (4.6-5.3) mg/dL Crossmatch See Detail 07/31/20 08/01/20 08/01/20 Range/Units 17:05 04:48 05:00 WBC (4.5-11.0) K/mm3 RBC (3.65-5.03) M/mm3 Hgb (11.8-15.2) gm/dl Hct (35.5-45.6) % RDW (13.2-15.2) % Seg Neuts % (Manual) (40.0-70.0) % Lymphocytes % (Manual) (13.4-35.0) % Nucleated RBC % (0.0-0.9) % Seg Neutrophils # Man (1.8-7.7) K/mm3 Lymphocytes # (Manual) (1.2-5.4) K/mm3 Monocytes # (Manual) (0.0-0.8) K/mm3 POC ABG pO2 111.5 H (83-108) mmHg ABG Hemoglobin 7.1 L (12.0-17.5) ABG Sodium 131.4 L (136.0-145.0) mmol/L ABG Glucose 107 H (65-95) mg/dL Sodium 135 L (137-145) mmol/L BUN 56 H (9-20) mg/dL Creatinine 2.6 H (0.8-1.3) mg/dL Glucose 117 H (75-100) mg/dL POC Glucose 119 H (70-105) mg/dL Calcium 7.8 L (8.4-10.2) mg/dL Arterial Blood Glucose 107 H (65-95) mg/dL Arterial Blood Ionized Calcium 4.3 L (4.6-5.3) mg/dL Crossmatch 08/01/20 08/01/20 Range/Units 05:00 11:53 WBC 22.0 H (4.5-11.0) K/mm3 RBC 2.26 L (3.65-5.03) M/mm3 Hgb 6.8 L (11.8-15.2) gm/dl Hct 20.5 L (35.5-45.6) % RDW 16.6 H (13.2-15.2) % Seg Neuts % (Manual) (40.0-70.0) % Lymphocytes % (Manual) (13.4-35.0) % Nucleated RBC % (0.0-0.9) % Seg Neutrophils # Man (1.8-7.7) K/mm3 Lymphocytes # (Manual) (1.2-5.4) K/mm3 Monocytes # (Manual) (0.0-0.8) K/mm3 POC ABG pO2 (83-108) mmHg ABG Hemoglobin (12.0-17.5) ABG Sodium (136.0-145.0) mmol/L ABG Glucose (65-95) mg/dL Sodium (137-145) mmol/L BUN (9-20) mg/dL Creatinine (0.8-1.3) mg/dL Glucose (75-100) mg/dL POC Glucose 107 H (70-105) mg/dL Calcium (8.4-10.2) mg/dL Arterial Blood Glucose (65-95) mg/dL Arterial Blood Ionized Calcium (4.6-5.3) mg/dL Crossmatch
--- NOTE | 2020-08-01 13:27 | Progress Note ---
Assessment and Plan Pt s/p trach and PEG. tele reviewed - currently in NSR. Cont present cardiac management. The patient has been seen in conjunction with Dr. Chavis who agrees with the assessment and plan of care. - Patient Problems (1) Acute respiratory failure with hypoxia Current Visit: Yes Status: Acute (2) Pneumonia due to COVID-19 virus Current Visit: Yes Status: Acute (3) Sepsis Current Visit: Yes Status: Acute Qualifiers: Severe sepsis acute organ dysfunction type: acute respiratory failure Severe sepsis shock status: with septic shock (4) Paroxysmal atrial fibrillation with rapid ventricular response Current Visit: Yes Status: Acute (5) Acute renal failure Current Visit: Yes Status: Acute (6) Elevated LFTs Current Visit: Yes Status: Acute (7) Anemia Current Visit: Yes Status: Acute Subjective Date of service: 08/01/20 Principal diagnosis: ARF; Septic Shock; COVID-19 PNA; Atrial fibrillation; Obesity Interval history: pt s/p trach and PEG. tele reviewed - in SR HR 80s, levophed gtt infusing. Objective Last Vital Signs Temp 98.5 F 08/01/20 12:00 Pulse 87 08/01/20 13:15 Resp 30 H 08/01/20 06:30 BP 102/50 08/01/20 13:15 Pulse Ox 94 08/01/20 11:08 - Physical Examination General: Other (trached, sedated) Neck: Positive: neck supple Cardiac: Positive: Reg Rate and Rhythm, S1/S2 Lungs: Positive: Decreased Breath Sounds, Oxygen, Ventilated Respirations, Other (trached) Neuro: Positive: Other (trached, sedated) Abdomen: Positive: Unremarkable Skin: Negative: Rash, Wound Extremities: Present: upper extr. pulses, lower extr. pulses, +1 Edema - Labs and Meds CBC 08/01/20 Range/Units 05:00 WBC 22.0 H (4.5-11.0) K/mm3 RBC 2.26 L (3.65-5.03) M/mm3 Hgb 6.8 L (11.8-15.2) gm/dl Hct 20.5 L (35.5-45.6) % Plt Count 222 (140-440) K/mm3 Comprehensive Metabolic Panel 08/01/20 Range/Units 05:00 Sodium 135 L (137-145) mmol/L Potassium 4.0 (3.6-5.0) mmol/L Chloride 99.0 (98-107) mmol/L Carbon Dioxide 23 (22-30) mmol/L BUN 56 H (9-20) mg/dL Creatinine 2.6 H (0.8-1.3) mg/dL Glucose 117 H (75-100) mg/dL Calcium 7.8 L (8.4-10.2) mg/dL - Imaging and Cardiology EKG: report reviewed, image reviewed Echo: report reviewed (TDS, EF 55-60%. ) - Telemetry EKG Rhythm: Sinus Rhythm - EKG Sinus rhythms and dysrhythmias: sinus tachycardia - Allied health notes Allied health notes reviewed: nursing
--- NOTE | 2020-08-01 13:59 | Progress Note ---
Assessment and Plan Acute hypoxemic respiratory failure due to COVID-19 Severe COVID infection Severe Sepsis with shock Bilateral pneumonia Acute kidney injury (GIRISH) with acute tubular necrosis (ATN) Elevated liver enzymes Obesity - add Vasopressin - vascath change if cultures positive - continue to hold SBT's for now - continue to wean vasopressors for target MAP > 65 mmHg - continue wound care per RN / WCN (discussed possible sheela of pressure ulcer with and the interventions re: frequent turning, bariatric bed, wound debridement) - continue HD/UF per nephrology prescription - continue care as below otherwise; - daily SAT's as tolerated - continue wound care per WCN / RN - continue on bariatric bed - continue to avoid supine position as much as possible - adjust ant-infective's per ID rec's (Ampicillin) - continue bid protonix - continue tube feeds at goal rate as tolerated - continue HD/UF per nephrology team for toxin and volume clearance - continue bowel regimen - Continue to wean supplemental oxygen for O2 sats >92% - Monitor blood pressure closely while optimizing sedation,wean vasopressor support for MAP > 65 mmHg - VAP bundle addressed, aspiration precautions HOB >40 - continue lung protective strategies, permissive hypercapnic acceptable. - continue bronchodilators with routine trach care and pulmonary hygiene per RT - wean per pulmonary driven protocols otherwise - accuchecks with glycemic control per SSI (While critically ill target blood glucose of 140-180 mg/dL; avoid hypoglycemia) - sedation prn for target RASS -1 to -2 - continue enteral nutritional support at goal rate as tolerated - on antibiotics per ID recommendations - follow clinically re: fevers / WBC - Monitor liver function test ,avoid hepatotoxic agents - azotemia per nephrology rec's - Avoid nephrotoxins, renally dose all medications, conservative fluid management - continue to avoid benzodiazepines, reduce the possibility of delirium, - prn analgesia per CPOT score - Maintenance of sleep-wake cycle, avoid delirium - Stress ulcer prophylaxis, Pantoprazole - PT/OT/ROM exercises - Mobility protocols for pressure ulcer prevention - CXR, ABG in am - CBC, CMP in am - Supportive transfusions to keep HgB >7g/dL - Monitor hemodynamics closely - continue other care per attending / other consultants COVID SPECIFIC INTERVENTIONS - s/p steroids: Dexamethasone - completed Remdesivir - monitor inflammatory markers prn - ferritin, D-dimer, CRP, LDH per facility protocol - continue anticoagulation per System Protocol based on d-dimer (on hold due to bleeding) - continue contact and airborne isolation CONDITION: CRITICAL PROGNOSIS: GUARDED CODE STATUS: FULL CODE The high probability of a clinically significant, sudden or life-threatening deterioration of the [respiratory, cardiovascular, hematologic & neurologic] system(s) required my full and direct attention, intervention and personal management. The aggregate critical care time was [55] minutes without overlap. Time includes spent on; [x] Data Review and interpretation [x] Patient assessment and monitoring of vital signs [x] Documentation [x] Medication orders and management He was evaluated in the context of the global COVID-19 pandemic, which necessitated consideration that the patient might be at risk for infection with the virus that causes COVID-19. Institutional protocols and algorithms that pertain to the evaluation of patients at risk for COVID-19 are in a state of rapid change based on information released by regulatory bodies including the CDC and federal and state organizations. These policies and algorithms were followed during the patient's care in the ICU Please note that these policies, procedures and recommendations changed on a rapid basis. Subjective Date of service: 08/01/20 Principal diagnosis: ARF; Septic Shock; COVID-19 PNA; Atrial fibrillation; Obesity Interval history: Patient is seen today for: Ac hypoxemic respiratory failure; COVID-19; Severe Sepsis with shock; Zackery. pneumonia; GIRISH; Elevated liver enzymes; Obesity Seen and examined at bedside; 24hour events reviewed; nursing and respiratory care staff consulted; no adverse overnight events reported to me; resting in bed; remains on MVS; work of breathing improved; FD/UF ongoing; on Vasopressor support and will add vasopressin to ensure he tolerates adequate UF. I discussed care plan at length with his Sherri and daughter Madina today Objective Vital Signs - 12hr 08/01/20 08/01/20 08/01/20 02:00 02:30 03:00 Temperature Pulse Rate 81 82 82 Pulse Rate [ From Monitor] Respiratory 30 H 30 H 30 H Rate Blood Pressure 114/56 115/55 114/57 O2 Sat by Pulse 99 99 99 Oximetry O2 Sat by Pulse Oximetry [ Anterior Bilateral Throughout] O2 Sat by Pulse Oximetry [ Assessment] 08/01/20 08/01/20 08/01/20 03:05 03:30 04:00 Temperature 98.9 F Pulse Rate 84 83 Pulse Rate [ 80 From Monitor] Respiratory 30 H 20 Rate Blood Pressure 113/55 120/60 O2 Sat by Pulse 98 99 Oximetry O2 Sat by Pulse Oximetry [ Anterior Bilateral Throughout] O2 Sat by Pulse 98 Oximetry [ Assessment] 08/01/20 08/01/20 08/01/20 04:30 05:00 05:30 Temperature Pulse Rate 80 83 81 Pulse Rate [ From Monitor] Respiratory 30 H 30 H 30 H Rate Blood Pressure 113/57 103/48 114/55 O2 Sat by Pulse 99 98 99 Oximetry O2 Sat by Pulse Oximetry [ Anterior Bilateral Throughout] O2 Sat by Pulse Oximetry [ Assessment] 08/01/20 08/01/20 08/01/20 06:00 06:09 06:30 Temperature Pulse Rate 81 80 85 Pulse Rate [ From Monitor] Respiratory 30 H 30 H Rate Blood Pressure 114/54 114/54 107/47 O2 Sat by Pulse 99 99 98 Oximetry O2 Sat by Pulse Oximetry [ Anterior Bilateral Throughout] O2 Sat by Pulse Oximetry [ Assessment] 08/01/20 08/01/20 08/01/20 08:00 08:08 11:08 Temperature 98.5 F Pulse Rate 82 100 H Pulse Rate [ From Monitor] Respiratory Rate Blood Pressure 107/51 101/46 O2 Sat by Pulse 98 94 Oximetry O2 Sat by Pulse Oximetry [ Anterior Bilateral Throughout] O2 Sat by Pulse 98 Oximetry [ Assessment] 08/01/20 08/01/20 08/01/20 12:00 12:55 13:01 Temperature 98.5 F 98.9 F Pulse Rate 88 87 Pulse Rate [ From Monitor] Respiratory 30 H Rate Blood Pressure 97/48 98/45 O2 Sat by Pulse Oximetry O2 Sat by Pulse 97 Oximetry [ Anterior Bilateral Throughout] O2 Sat by Pulse Oximetry [ Assessment] 08/01/20 08/01/20 08/01/20 13:15 13:30 13:45 Temperature Pulse Rate 87 90 96 H Pulse Rate [ From Monitor] Respiratory Rate Blood Pressure 102/50 112/52 117/53 O2 Sat by Pulse Oximetry O2 Sat by Pulse Oximetry [ Anterior Bilateral Throughout] O2 Sat by Pulse Oximetry [ Assessment] Constitutional: no acute distress, other (morbidly obese, atraumatic, normocephalic, mild resp distress, orally intubated) Eyes: non-icteric ENT: oropharynx moist, other (s/p tracheostomy) Neck: supple, no lymphadenopathy, other (Large , short neck) Effort: mildly labored Ascultation: Bilateral: diminished breath sounds, rhonchi Percussion: Bilateral: not dull Cardiovascular: irregular rhythm, other (S1,S2) Gastrointestinal: normoactive bowel sounds, soft, non-tender, non-distended (protuberant) Integumentary: rash, other (Femoral CVC, Newell catheter) Extremities: pink and warm, pulses normal, no ischemia or petechiae, edema (trace to 1+) Neurologic: non-focal exam (grossly), pupils equal and round, CN II-XII normal, other (unable to assess, sedated) Psychiatric: other (unable to assess, sedated) CBC and BMP: 08/01/20 05:00 08/01/20 05:00 ABG, PT/INR, D-dimer: ABG ABG pH 7.330 (7.320-7.450) 08/01/20 04:48 POC ABG pCO2 42.1 mmHg (32.0-48.0) 08/01/20 04:48 ABG pCO2 44.4 mm Hg 07/28/20 14:31 POC ABG pO2 111.5 mmHg (83-108) H 08/01/20 04:48 ABG pO2 68.0 mm Hg (80.0-90.0) L 07/28/20 14:31 POC ABG HCO3 21.7 08/01/20 04:48 ABG O2 Saturation 98.4 (0-100) 08/01/20 04:48 PT/INR, D-dimer PT 15.3 Sec. (12.2-14.9) H 07/24/20 20:40 INR 1.21 (0.87-1.13) H 07/24/20 20:40 D-Dimer 6608.00 ng/mlDDU (0-234) H 07/03/20 14:50 Abnormal lab findings: Abnormal Labs 06/17/20 06/17/20 06/17/20 12:33 12:33 12:33 WBC 19.5 H RBC 5.18 H Hgb 15.5 H Hct MCHC RDW Plt Count Lymph % (Auto) 3.8 L [place] % (Auto) Lymph # (Auto) 0.7 L [place] # (Auto) Eos # (Auto) Baso # (Auto) Seg Neutrophils % Seg Neuts % (Manual) 99.0 H Lymphocytes % (Manual) 1.0 L Monocytes % (Manual) Basophils % (Manual) Nucleated RBC % Seg Neutrophils # 18.2 H Seg Neutrophils # Man 19.3 H Lymphocytes # (Manual) 0.2 L Monocytes # (Manual) Eosinophils # (Manual) Basophils # (Manual) PT 16.5 H INR 1.33 H APTT D-Dimer 1025.04 H Heparin Anti-Xa Level ABG pH POC ABG pCO2 POC ABG pO2 ABG pO2 ABG HCO3 ABG O2 Saturation ABG Base Excess ABG Hemoglobin ABG Oxyhemoglobin ABG Sodium ABG Potassium ABG Chloride ABG Glucose Oxyhemoglobin Carboxyhemoglobin Sodium 130 L Potassium 3.4 L Chloride 95.0 L Carbon Dioxide BUN 21 H Creatinine Glucose 137 H POC Glucose Lactic Acid Calcium 7.9 L Phosphorus Magnesium Ferritin Direct Bilirubin AST 84 H ALT 67 H Alkaline Phosphatase Lactate Dehydrogenase 437 H Total Creatine Kinase 310 H C-Reactive Protein 27.90 H Total Protein Albumin 2.9 L Triglycerides Arterial Blood Glucose Arterial Blood Ionized Calcium Urine Creatinine Urine Chloride Vancomycin Trough Coronavirus (PCR) Crossmatch 06/17/20 06/17/20 06/17/20 12:33 12:33 14:48 WBC RBC Hgb Hct MCHC RDW Plt Count Lymph % (Auto) [place] % (Auto) Lymph # (Auto) [place] # (Auto) Eos # (Auto) Baso # (Auto) Seg Neutrophils % Seg Neuts % (Manual) Lymphocytes % (Manual) Monocytes % (Manual) Basophils % (Manual) Nucleated RBC % Seg Neutrophils # Seg Neutrophils # Man Lymphocytes # (Manual) Monocytes # (Manual) Eosinophils # (Manual) Basophils # (Manual) PT INR APTT D-Dimer Heparin Anti-Xa Level ABG pH POC ABG pCO2 POC ABG pO2 ABG pO2 ABG HCO3 ABG O2 Saturation ABG Base Excess ABG Hemoglobin ABG Oxyhemoglobin ABG Sodium ABG Potassium ABG Chloride ABG Glucose Oxyhemoglobin Carboxyhemoglobin Sodium Potassium Chloride Carbon Dioxide BUN Creatinine Glucose POC Glucose Lactic Acid 2.50 H* 2.20 H* Calcium Phosphorus Magnesium Ferritin 2297.0 H Direct Bilirubin AST ALT Alkaline Phosphatase Lactate Dehydrogenase Total Creatine Kinase C-Reactive Protein Total Protein Albumin Triglycerides Arterial Blood Glucose Arterial Blood Ionized Calcium Urine Creatinine Urine Chloride Vancomycin Trough Coronavirus (PCR) Crossmatch 06/17/20 06/17/20 06/17/20 14:48 14:48 14:48 WBC RBC Hgb Hct MCHC RDW Plt Count Lymph % (Auto) [place] % (Auto) Lymph # (Auto) [place] # (Auto) Eos # (Auto) Baso # (Auto) Seg Neutrophils % Seg Neuts % (Manual) Lymphocytes % (Manual) Monocytes % (Manual) Basophils % (Manual) Nucleated RBC % Seg Neutrophils # Seg Neutrophils # Man Lymphocytes # (Manual) Monocytes # (Manual) Eosinophils # (Manual) Basophils # (Manual) PT INR APTT D-Dimer 939.89 H Heparin Anti-Xa Level ABG pH POC ABG pCO2 POC ABG pO2 ABG pO2 ABG HCO3 ABG O2 Saturation ABG Base Excess ABG Hemoglobin ABG Oxyhemoglobin ABG Sodium ABG Potassium ABG Chloride ABG Glucose Oxyhemoglobin Carboxyhemoglobin Sodium Potassium Chloride Carbon Dioxide BUN Creatinine Glucose 141 H POC Glucose Lactic Acid Calcium Phosphorus Magnesium Ferritin > 2000.0 H Direct Bilirubin AST ALT Alkaline Phosphatase Lactate Dehydrogenase 503 H Total Creatine Kinase C-Reactive Protein 24.70 H Total Protein Albumin Triglycerides Arterial Blood Glucose Arterial Blood Ionized Calcium Urine Creatinine Urine Chloride Vancomycin Trough Coronavirus (PCR) Crossmatch 06/17/20 06/17/20 06/17/20 16:54 19:39 23:43 WBC RBC Hgb Hct MCHC RDW Plt Count Lymph % (Auto) [place] % (Auto) Lymph # (Auto) [place] # (Auto) Eos # (Auto) Baso # (Auto) Seg Neutrophils % Seg Neuts % (Manual) Lymphocytes % (Manual) Monocytes % (Manual) Basophils % (Manual) Nucleated RBC % Seg Neutrophils # Seg Neutrophils # Man Lymphocytes # (Manual) Monocytes # (Manual) Eosinophils # (Manual) Basophils # (Manual) PT INR APTT D-Dimer Heparin Anti-Xa Level ABG pH 7.571 H POC ABG pCO2 24.3 L POC ABG pO2 41.6 L ABG pO2 ABG HCO3 ABG O2 Saturation ABG Base Excess ABG Hemoglobin ABG Oxyhemoglobin 84.0 L ABG Sodium 131.0 L ABG Potassium ABG Chloride ABG Glucose 163 H Oxyhemoglobin Carboxyhemoglobin Sodium Potassium Chloride Carbon Dioxide BUN Creatinine Glucose POC Glucose 185 H Lactic Acid 2.10 H* Calcium Phosphorus Magnesium Ferritin Direct Bilirubin AST ALT Alkaline Phosphatase Lactate Dehydrogenase Total Creatine Kinase C-Reactive Protein Total Protein Albumin Triglycerides Arterial Blood Glucose 163 H Arterial Blood Ionized Calcium 4.4 L Urine Creatinine Urine Chloride Vancomycin Trough Coronavirus (PCR) Crossmatch 06/18/20 06/18/20 06/18/20 00:17 00:23 03:55 WBC RBC Hgb Hct MCHC RDW Plt Count Lymph % (Auto) [place] % (Auto) Lymph # (Auto) [place] # (Auto) Eos # (Auto) Baso # (Auto) Seg Neutrophils % Seg Neuts % (Manual) Lymphocytes % (Manual) Monocytes % (Manual) Basophils % (Manual) Nucleated RBC % Seg Neutrophils # Seg Neutrophils # Man Lymphocytes # (Manual) Monocytes # (Manual) Eosinophils # (Manual) Basophils # (Manual) PT INR APTT D-Dimer Heparin Anti-Xa Level ABG pH POC ABG pCO2 POC ABG pO2 56.5 L 48.3 L ABG pO2 ABG HCO3 ABG O2 Saturation ABG Base Excess ABG Hemoglobin ABG Oxyhemoglobin 86.3 L 81.7 L ABG Sodium 132.9 L 131.0 L ABG Potassium ABG Chloride ABG Glucose 189 H 161 H Oxyhemoglobin Carboxyhemoglobin 0.4 L Sodium Potassium Chloride Carbon Dioxide BUN Creatinine Glucose POC Glucose Lactic Acid 3.80 H* Calcium Phosphorus Magnesium Ferritin Direct Bilirubin AST ALT Alkaline Phosphatase Lactate Dehydrogenase Total Creatine Kinase C-Reactive Protein Total Protein Albumin Triglycerides Arterial Blood Glucose 189 H 161 H Arterial Blood Ionized Calcium 4.3 L 4.2 L Urine Creatinine Urine Chloride Vancomycin Trough Coronavirus (PCR) Crossmatch 06/18/20 06/18/20 06/18/20 05:39 05:39 05:39 WBC 26.2 H RBC Hgb Hct MCHC RDW Plt Count Lymph % (Auto) [place] % (Auto) Lymph # (Auto) [place] # (Auto) Eos # (Auto) Baso # (Auto) Seg Neutrophils % Seg Neuts % (Manual) 90.0 H Lymphocytes % (Manual) 5.0 L Monocytes % (Manual) Basophils % (Manual) Nucleated RBC % Seg Neutrophils # Seg Neutrophils # Man 23.6 H Lymphocytes # (Manual) Monocytes # (Manual) 1.3 H Eosinophils # (Manual) Basophils # (Manual) PT INR APTT D-Dimer Heparin Anti-Xa Level ABG pH POC ABG pCO2 POC ABG pO2 ABG pO2 ABG HCO3 ABG O2 Saturation ABG Base Excess ABG Hemoglobin ABG Oxyhemoglobin ABG Sodium ABG Potassium ABG Chloride ABG Glucose Oxyhemoglobin Carboxyhemoglobin Sodium 135 L Potassium Chloride 97.5 L Carbon Dioxide 21 L BUN 39 H Creatinine 1.7 H D Glucose 168 H POC Glucose Lactic Acid 3.40 H* Calcium 7.2 L Phosphorus Magnesium Ferritin Direct Bilirubin AST ALT Alkaline Phosphatase Lactate Dehydrogenase Total Creatine Kinase C-Reactive Protein Total Protein Albumin Triglycerides Arterial Blood Glucose Arterial Blood Ionized Calcium Urine Creatinine Urine Chloride Vancomycin Trough Coronavirus (PCR) Crossmatch 06/18/20 06/18/20 06/18/20 07:24 09:00 10:10 WBC RBC Hgb Hct MCHC RDW Plt Count Lymph % (Auto) [place] % (Auto) Lymph # (Auto) [place] # (Auto) Eos # (Auto) Baso # (Auto) Seg Neutrophils % Seg Neuts % (Manual) Lymphocytes % (Manual) Monocytes % (Manual) Basophils % (Manual) Nucleated RBC % Seg Neutrophils # Seg Neutrophils # Man Lymphocytes # (Manual) Monocytes # (Manual) Eosinophils # (Manual) Basophils # (Manual) PT INR APTT D-Dimer Heparin Anti-Xa Level ABG pH POC ABG pCO2 POC ABG pO2 ABG pO2 ABG HCO3 ABG O2 Saturation ABG Base Excess ABG Hemoglobin ABG Oxyhemoglobin ABG Sodium ABG Potassium ABG Chloride ABG Glucose Oxyhemoglobin Carboxyhemoglobin Sodium Potassium Chloride Carbon Dioxide BUN Creatinine Glucose POC Glucose Lactic Acid 2.90 H* 3.20 H* Calcium Phosphorus Magnesium Ferritin Direct Bilirubin AST ALT Alkaline Phosphatase Lactate Dehydrogenase Total Creatine Kinase C-Reactive Protein Total Protein Albumin Triglycerides Arterial Blood Glucose Arterial Blood Ionized Calcium Urine Creatinine Urine Chloride Vancomycin Trough Coronavirus (PCR) Positive A Crossmatch 06/18/20 06/18/20 06/18/20 11:58 14:43 15:00 WBC RBC Hgb Hct MCHC RDW Plt Count Lymph % (Auto) [place] % (Auto) Lymph # (Auto) [place] # (Auto) Eos # (Auto) Baso # (Auto) Seg Neutrophils % Seg Neuts % (Manual) Lymphocytes % (Manual) Monocytes % (Manual) Basophils % (Manual) Nucleated RBC % Seg Neutrophils # Seg Neutrophils # Man Lymphocytes # (Manual) Monocytes # (Manual) Eosinophils # (Manual) Basophils # (Manual) PT INR APTT D-Dimer Heparin Anti-Xa Level ABG pH 7.303 L POC ABG pCO2 POC ABG pO2 82.3 L ABG pO2 ABG HCO3 ABG O2 Saturation ABG Base Excess ABG Hemoglobin ABG Oxyhemoglobin ABG Sodium 135.3 L ABG Potassium ABG Chloride ABG Glucose 215 H Oxyhemoglobin Carboxyhemoglobin 0.3 L Sodium Potassium Chloride Carbon Dioxide BUN Creatinine Glucose POC Glucose 209 H Lactic Acid Calcium Phosphorus Magnesium Ferritin Direct Bilirubin AST ALT Alkaline Phosphatase Lactate Dehydrogenase Total Creatine Kinase C-Reactive Protein Total Protein Albumin Triglycerides Arterial Blood Glucose 215 H Arterial Blood Ionized Calcium 4.2 L Urine Creatinine 192.4 H Urine Chloride 31.1 L Vancomycin Trough Coronavirus (PCR) Crossmatch 06/18/20 06/18/20 06/18/20 17:16 19:44 20:33 WBC RBC Hgb Hct MCHC RDW Plt Count Lymph % (Auto) [place] % (Auto) Lymph # (Auto) [place] # (Auto) Eos # (Auto) Baso # (Auto) Seg Neutrophils % Seg Neuts % (Manual) Lymphocytes % (Manual) Monocytes % (Manual) Basophils % (Manual) Nucleated RBC % Seg Neutrophils # Seg Neutrophils # Man Lymphocytes # (Manual) Monocytes # (Manual) Eosinophils # (Manual) Basophils # (Manual) PT INR APTT D-Dimer Heparin Anti-Xa Level ABG pH POC ABG pCO2 POC ABG pO2 ABG pO2 ABG HCO3 ABG O2 Saturation ABG Base Excess ABG Hemoglobin ABG Oxyhemoglobin ABG Sodium ABG Potassium ABG Chloride ABG Glucose Oxyhemoglobin Carboxyhemoglobin Sodium Potassium Chloride Carbon Dioxide BUN Creatinine Glucose POC Glucose 182 H Lactic Acid 3.00 H* Calcium Phosphorus Magnesium 2.70 H Ferritin Direct Bilirubin AST ALT Alkaline Phosphatase Lactate Dehydrogenase Total Creatine Kinase C-Reactive Protein Total Protein Albumin Triglycerides Arterial Blood Glucose Arterial Blood Ionized Calcium Urine Creatinine Urine Chloride Vancomycin Trough Coronavirus (PCR) Crossmatch 06/18/20 06/19/20 06/19/20 23:43 04:00 04:00 WBC 31.6 H RBC Hgb Hct MCHC RDW Plt Count Lymph % (Auto) [place] % (Auto) Lymph # (Auto) [place] # (Auto) Eos # (Auto) Baso # (Auto) Seg Neutrophils % Seg Neuts % (Manual) 98.0 H Lymphocytes % (Manual) 0.5 L Monocytes % (Manual) Basophils % (Manual) Nucleated RBC % Seg Neutrophils # Seg Neutrophils # Man 31.0 H Lymphocytes # (Manual) 0.2 L Monocytes # (Manual) Eosinophils # (Manual) Basophils # (Manual) PT INR APTT D-Dimer Heparin Anti-Xa Level ABG pH POC ABG pCO2 POC ABG pO2 ABG pO2 ABG HCO3 ABG O2 Saturation ABG Base Excess ABG Hemoglobin ABG Oxyhemoglobin ABG Sodium ABG Potassium ABG Chloride ABG Glucose Oxyhemoglobin Carboxyhemoglobin Sodium Potassium Chloride Carbon Dioxide BUN 56 H Creatinine 1.6 H Glucose 176 H POC Glucose 149 H Lactic Acid Calcium 7.0 L Phosphorus Magnesium Ferritin Direct Bilirubin AST 244 H ALT 159 H Alkaline Phosphatase Lactate Dehydrogenase Total Creatine Kinase C-Reactive Protein Total Protein 4.9 L D Albumin 2.5 L Triglycerides Arterial Blood Glucose Arterial Blood Ionized Calcium Urine Creatinine Urine Chloride Vancomycin Trough Coronavirus (PCR) Crossmatch 06/19/20 06/19/20 06/19/20 04:00 05:44 11:42 WBC RBC Hgb Hct MCHC RDW Plt Count Lymph % (Auto) [place] % (Auto) Lymph # (Auto) [place] # (Auto) Eos # (Auto) Baso # (Auto) Seg Neutrophils % Seg Neuts % (Manual) Lymphocytes % (Manual) Monocytes % (Manual) Basophils % (Manual) Nucleated RBC % Seg Neutrophils # Seg Neutrophils # Man Lymphocytes # (Manual) Monocytes # (Manual) Eosinophils # (Manual) Basophils # (Manual) PT INR APTT D-Dimer Heparin Anti-Xa Level ABG pH 7.265 L POC ABG pCO2 51.8 H POC ABG pO2 65.1 L ABG pO2 ABG HCO3 ABG O2 Saturation ABG Base Excess ABG Hemoglobin ABG Oxyhemoglobin ABG Sodium ABG Potassium ABG Chloride ABG Glucose 184 H Oxyhemoglobin Carboxyhemoglobin Sodium Potassium Chloride Carbon Dioxide BUN Creatinine Glucose POC Glucose 156 H 191 H Lactic Acid Calcium Phosphorus Magnesium Ferritin Direct Bilirubin AST ALT Alkaline Phosphatase Lactate Dehydrogenase Total Creatine Kinase C-Reactive Protein Total Protein Albumin Triglycerides Arterial Blood Glucose 184 H Arterial Blood Ionized Calcium 4.3 L Urine Creatinine Urine Chloride Vancomycin Trough Coronavirus (PCR) Crossmatch 06/19/20 06/19/20 06/19/20 12:30 17:16 18:36 WBC RBC Hgb Hct MCHC RDW Plt Count Lymph % (Auto) [place] % (Auto) Lymph # (Auto) [place] # (Auto) Eos # (Auto) Baso # (Auto) Seg Neutrophils % Seg Neuts % (Manual) Lymphocytes % (Manual) Monocytes % (Manual) Basophils % (Manual) Nucleated RBC % Seg Neutrophils # Seg Neutrophils # Man Lymphocytes # (Manual) Monocytes # (Manual) Eosinophils # (Manual) Basophils # (Manual) PT 16.4 H INR 1.32 H APTT D-Dimer Heparin Anti-Xa Level ABG pH 7.088 L POC ABG pCO2 78.1 H POC ABG pO2 208.3 H ABG pO2 ABG HCO3 ABG O2 Saturation ABG Base Excess ABG Hemoglobin ABG Oxyhemoglobin 98.3 H ABG Sodium ABG Potassium 5.0 H ABG Chloride ABG Glucose 182 H Oxyhemoglobin Carboxyhemoglobin 0.4 L Sodium Potassium Chloride Carbon Dioxide BUN Creatinine Glucose POC Glucose 154 H Lactic Acid Calcium Phosphorus Magnesium Ferritin Direct Bilirubin AST ALT Alkaline Phosphatase Lactate Dehydrogenase Total Creatine Kinase C-Reactive Protein Total Protein Albumin Triglycerides Arterial Blood Glucose 182 H Arterial Blood Ionized Calcium 4.3 L Urine Creatinine Urine Chloride Vancomycin Trough Coronavirus (PCR) Crossmatch 06/19/20 06/20/20 06/20/20 23:32 03:00 05:19 WBC RBC Hgb Hct MCHC RDW Plt Count Lymph % (Auto) [place] % (Auto) Lymph # (Auto) [place] # (Auto) Eos # (Auto) Baso # (Auto) Seg Neutrophils % Seg Neuts % (Manual) Lymphocytes % (Manual) Monocytes % (Manual) Basophils % (Manual) Nucleated RBC % Seg Neutrophils # Seg Neutrophils # Man Lymphocytes # (Manual) Monocytes # (Manual) Eosinophils # (Manual) Basophils # (Manual) PT INR APTT D-Dimer Heparin Anti-Xa Level 0.77 H ABG pH POC ABG pCO2 POC ABG pO2 ABG pO2 ABG HCO3 ABG O2 Saturation ABG Base Excess ABG Hemoglobin ABG Oxyhemoglobin ABG Sodium ABG Potassium ABG Chloride ABG Glucose Oxyhemoglobin Carboxyhemoglobin Sodium Potassium Chloride Carbon Dioxide BUN Creatinine Glucose POC Glucose 201 H 190 H Lactic Acid Calcium Phosphorus Magnesium Ferritin Direct Bilirubin AST ALT Alkaline Phosphatase Lactate Dehydrogenase Total Creatine Kinase C-Reactive Protein Total Protein Albumin Triglycerides Arterial Blood Glucose Arterial Blood Ionized Calcium Urine Creatinine Urine Chloride Vancomycin Trough Coronavirus (PCR) Crossmatch 06/20/20 06/20/20 06/20/20 08:25 08:25 11:36 WBC RBC Hgb Hct MCHC RDW Plt Count Lymph % (Auto) [place] % (Auto) Lymph # (Auto) [place] # (Auto) Eos # (Auto) Baso # (Auto) Seg Neutrophils % Seg Neuts % (Manual) Lymphocytes % (Manual) Monocytes % (Manual) Basophils % (Manual) Nucleated RBC % Seg Neutrophils # Seg Neutrophils # Man Lymphocytes # (Manual) Monocytes # (Manual) Eosinophils # (Manual) Basophils # (Manual) PT INR APTT D-Dimer Heparin Anti-Xa Level ABG pH POC ABG pCO2 POC ABG pO2 ABG pO2 ABG HCO3 ABG O2 Saturation ABG Base Excess ABG Hemoglobin ABG Oxyhemoglobin ABG Sodium ABG Potassium ABG Chloride ABG Glucose Oxyhemoglobin Carboxyhemoglobin Sodium 135 L Potassium 5.4 H Chloride 109.2 H Carbon Dioxide 19 L BUN 68 H Creatinine 2.5 H D Glucose 201 H POC Glucose 184 H Lactic Acid Calcium 5.5 L* D Phosphorus Magnesium Ferritin Direct Bilirubin AST 123 H ALT 86 H Alkaline Phosphatase Lactate Dehydrogenase Total Creatine Kinase C-Reactive Protein Total Protein 4.6 L Albumin 1.5 L Triglycerides Arterial Blood Glucose Arterial Blood Ionized Calcium Urine Creatinine Urine Chloride Vancomycin Trough 22.7 H Coronavirus (PCR) Crossmatch 06/20/20 06/20/20 06/20/20 11:40 17:28 20:00 WBC RBC Hgb Hct MCHC RDW Plt Count Lymph % (Auto) [place] % (Auto) Lymph # (Auto) [place] # (Auto) Eos # (Auto) Baso # (Auto) Seg Neutrophils % Seg Neuts % (Manual) Lymphocytes % (Manual) Monocytes % (Manual) Basophils % (Manual) Nucleated RBC % Seg Neutrophils # Seg Neutrophils # Man Lymphocytes # (Manual) Monocytes # (Manual) Eosinophils # (Manual) Basophils # (Manual) PT INR APTT D-Dimer Heparin Anti-Xa Level 0.89 H ABG pH 7.099 L POC ABG pCO2 61.1 H POC ABG pO2 ABG pO2 ABG HCO3 ABG O2 Saturation ABG Base Excess ABG Hemoglobin ABG Oxyhemoglobin ABG Sodium ABG Potassium 5.0 H ABG Chloride 111.0 H ABG Glucose 200 H Oxyhemoglobin Carboxyhemoglobin 0.4 L Sodium Potassium Chloride Carbon Dioxide BUN Creatinine Glucose POC Glucose 165 H Lactic Acid Calcium Phosphorus Magnesium Ferritin Direct Bilirubin AST ALT Alkaline Phosphatase Lactate Dehydrogenase Total Creatine Kinase C-Reactive Protein Total Protein Albumin Triglycerides Arterial Blood Glucose 200 H Arterial Blood Ionized Calcium 4.2 L Urine Creatinine Urine Chloride Vancomycin Trough Coronavirus (PCR) Crossmatch 06/20/20 06/21/20 06/21/20 23:29 05:00 05:20 WBC RBC Hgb Hct MCHC RDW Plt Count Lymph % (Auto) [place] % (Auto) Lymph # (Auto) [place] # (Auto) Eos # (Auto) Baso # (Auto) Seg Neutrophils % Seg Neuts % (Manual) Lymphocytes % (Manual) Monocytes % (Manual) Basophils % (Manual) Nucleated RBC % Seg Neutrophils # Seg Neutrophils # Man Lymphocytes # (Manual) Monocytes # (Manual) Eosinophils # (Manual) Basophils # (Manual) PT INR APTT D-Dimer Heparin Anti-Xa Level ABG pH POC ABG pCO2 POC ABG pO2 ABG pO2 ABG HCO3 ABG O2 Saturation ABG Base Excess ABG Hemoglobin ABG Oxyhemoglobin ABG Sodium ABG Potassium ABG Chloride ABG Glucose Oxyhemoglobin Carboxyhemoglobin Sodium Potassium Chloride 112.0 H Carbon Dioxide 20 L BUN 92 H Creatinine 3.9 H D Glucose 214 H POC Glucose 145 H 191 H Lactic Acid Calcium 6.5 L D Phosphorus Magnesium Ferritin Direct Bilirubin AST 98 H ALT 84 H Alkaline Phosphatase Lactate Dehydrogenase Total Creatine Kinase C-Reactive Protein Total Protein 4.6 L Albumin 2.1 L Triglycerides 180 H Arterial Blood Glucose Arterial Blood Ionized Calcium Urine Creatinine Urine Chloride Vancomycin Trough Coronavirus (PCR) Crossmatch 06/21/20 06/21/20 06/21/20 08:56 11:12 12:43 WBC RBC Hgb Hct MCHC RDW Plt Count Lymph % (Auto) [place] % (Auto) Lymph # (Auto) [place] # (Auto) Eos # (Auto) Baso # (Auto) Seg Neutrophils % Seg Neuts % (Manual) Lymphocytes % (Manual) Monocytes % (Manual) Basophils % (Manual) Nucleated RBC % Seg Neutrophils # Seg Neutrophils # Man Lymphocytes # (Manual) Monocytes # (Manual) Eosinophils # (Manual) Basophils # (Manual) PT INR APTT D-Dimer Heparin Anti-Xa Level 0.28 L ABG pH 7.184 L POC ABG pCO2 48.3 H POC ABG pO2 172.1 H ABG pO2 ABG HCO3 ABG O2 Saturation ABG Base Excess ABG Hemoglobin ABG Oxyhemoglobin 98.7 H ABG Sodium ABG Potassium 4.9 H ABG Chloride 112.0 H ABG Glucose 196 H Oxyhemoglobin Carboxyhemoglobin 0.2 L Sodium Potassium Chloride Carbon Dioxide BUN Creatinine Glucose POC Glucose 177 H Lactic Acid Calcium Phosphorus Magnesium Ferritin Direct Bilirubin AST ALT Alkaline Phosphatase Lactate Dehydrogenase Total Creatine Kinase C-Reactive Protein Total Protein Albumin Triglycerides Arterial Blood Glucose 196 H Arterial Blood Ionized Calcium 4.1 L Urine Creatinine Urine Chloride Vancomycin Trough Coronavirus (PCR) Crossmatch 06/21/20 06/21/20 06/22/20 16:31 Unknown 00:12 WBC RBC Hgb Hct MCHC RDW Plt Count Lymph % (Auto) [place] % (Auto) Lymph # (Auto) [place] # (Auto) Eos # (Auto) Baso # (Auto) Seg Neutrophils % Seg Neuts % (Manual) Lymphocytes % (Manual) Monocytes % (Manual) Basophils % (Manual) Nucleated RBC % Seg Neutrophils # Seg Neutrophils # Man Lymphocytes # (Manual) Monocytes # (Manual) Eosinophils # (Manual) Basophils # (Manual) PT INR APTT D-Dimer Heparin Anti-Xa Level 0.78 H ABG pH POC ABG pCO2 POC ABG pO2 ABG pO2 ABG HCO3 ABG O2 Saturation ABG Base Excess ABG Hemoglobin ABG Oxyhemoglobin ABG Sodium ABG Potassium ABG Chloride ABG Glucose Oxyhemoglobin Carboxyhemoglobin Sodium Potassium Chloride Carbon Dioxide BUN Creatinine Glucose POC Glucose 150 H 173 H Lactic Acid Calcium Phosphorus Magnesium Ferritin Direct Bilirubin AST ALT Alkaline Phosphatase Lactate Dehydrogenase Total Creatine Kinase C-Reactive Protein Total Protein Albumin Triglycerides Arterial Blood Glucose Arterial Blood Ionized Calcium Urine Creatinine Urine Chloride Vancomycin Trough Coronavirus (PCR) Crossmatch 06/22/20 06/22/20 06/22/20 04:00 05:04 05:30 WBC 33.9 H RBC Hgb 11.7 L Hct 35.2 L MCHC RDW 15.8 H Plt Count Lymph % (Auto) [place] % (Auto) Lymph # (Auto) [place] # (Auto) Eos # (Auto) Baso # (Auto) Seg Neutrophils % Seg Neuts % (Manual) 93.0 H Lymphocytes % (Manual) 5.0 L Monocytes % (Manual) Basophils % (Manual) Nucleated RBC % Seg Neutrophils # Seg Neutrophils # Man 31.5 H Lymphocytes # (Manual) Monocytes # (Manual) Eosinophils # (Manual) Basophils # (Manual) PT INR APTT D-Dimer Heparin Anti-Xa Level ABG pH 7.169 L POC ABG pCO2 POC ABG pO2 ABG pO2 ABG HCO3 ABG O2 Saturation ABG Base Excess ABG Hemoglobin ABG Oxyhemoglobin ABG Sodium ABG Potassium 5.1 H ABG Chloride 112.0 H ABG Glucose 186 H Oxyhemoglobin Carboxyhemoglobin 0.3 L Sodium Potassium Chloride Carbon Dioxide BUN Creatinine Glucose POC Glucose 161 H Lactic Acid Calcium Phosphorus Magnesium Ferritin Direct Bilirubin AST ALT Alkaline Phosphatase Lactate Dehydrogenase Total Creatine Kinase C-Reactive Protein Total Protein Albumin Triglycerides Arterial Blood Glucose 186 H Arterial Blood Ionized Calcium 4.1 L Urine Creatinine Urine Chloride Vancomycin Trough Coronavirus (PCR) Crossmatch 06/22/20 06/22/20 06/22/20 05:30 11:39 13:27 WBC RBC Hgb Hct MCHC RDW Plt Count Lymph % (Auto) [place] % (Auto) Lymph # (Auto) [place] # (Auto) Eos # (Auto) Baso # (Auto) Seg Neutrophils % Seg Neuts % (Manual) Lymphocytes % (Manual) Monocytes % (Manual) Basophils % (Manual) Nucleated RBC % Seg Neutrophils # Seg Neutrophils # Man Lymphocytes # (Manual) Monocytes # (Manual) Eosinophils # (Manual) Basophils # (Manual) PT INR APTT D-Dimer Heparin Anti-Xa Level ABG pH POC ABG pCO2 POC ABG pO2 ABG pO2 ABG HCO3 ABG O2 Saturation ABG Base Excess ABG Hemoglobin ABG Oxyhemoglobin ABG Sodium ABG Potassium ABG Chloride ABG Glucose Oxyhemoglobin Carboxyhemoglobin Sodium Potassium 5.7 H Chloride 111.3 H Carbon Dioxide 18 L BUN 112 H Creatinine 5.0 H Glucose 173 H POC Glucose 172 H 176 H Lactic Acid Calcium 6.7 L Phosphorus Magnesium Ferritin Direct Bilirubin AST ALT Alkaline Phosphatase Lactate Dehydrogenase Total Creatine Kinase C-Reactive Protein Total Protein Albumin Triglycerides Arterial Blood Glucose Arterial Blood Ionized Calcium Urine Creatinine Urine Chloride Vancomycin Trough Coronavirus (PCR) Crossmatch 06/22/20 06/22/20 06/22/20 14:37 17:00 17:40 WBC RBC Hgb Hct MCHC RDW Plt Count Lymph % (Auto) [place] % (Auto) Lymph # (Auto) [place] # (Auto) Eos # (Auto) Baso # (Auto) Seg Neutrophils % Seg Neuts % (Manual) Lymphocytes % (Manual) Monocytes % (Manual) Basophils % (Manual) Nucleated RBC % Seg Neutrophils # Seg Neutrophils # Man Lymphocytes # (Manual) Monocytes # (Manual) Eosinophils # (Manual) Basophils # (Manual) PT INR APTT D-Dimer Heparin Anti-Xa Level 1.32 H ABG pH POC ABG pCO2 POC ABG pO2 ABG pO2 ABG HCO3 ABG O2 Saturation ABG Base Excess ABG Hemoglobin ABG Oxyhemoglobin ABG Sodium ABG Potassium ABG Chloride ABG Glucose Oxyhemoglobin Carboxyhemoglobin Sodium Potassium Chloride Carbon Dioxide BUN Creatinine Glucose POC Glucose 171 H Lactic Acid Calcium Phosphorus Magnesium Ferritin Direct Bilirubin AST ALT Alkaline Phosphatase Lactate Dehydrogenase Total Creatine Kinase C-Reactive Protein 5.30 H Total Protein Albumin Triglycerides Arterial Blood Glucose Arterial Blood Ionized Calcium Urine Creatinine Urine Chloride Vancomycin Trough Coronavirus (PCR) Crossmatch 06/22/20 06/23/20 06/23/20 23:36 02:13 02:41 WBC RBC Hgb Hct MCHC RDW Plt Count Lymph % (Auto) [place] % (Auto) Lymph # (Auto) [place] # (Auto) Eos # (Auto) Baso # (Auto) Seg Neutrophils % Seg Neuts % (Manual) Lymphocytes % (Manual) Monocytes % (Manual) Basophils % (Manual) Nucleated RBC % Seg Neutrophils # Seg Neutrophils # Man Lymphocytes # (Manual) Monocytes # (Manual) Eosinophils # (Manual) Basophils # (Manual) PT INR APTT D-Dimer Heparin Anti-Xa Level 0.21 L ABG pH 7.318 L POC ABG pCO2 POC ABG pO2 157.5 H ABG pO2 ABG HCO3 ABG O2 Saturation ABG Base Excess ABG Hemoglobin ABG Oxyhemoglobin ABG Sodium 135.6 L ABG Potassium 4.6 H ABG Chloride 110.0 H ABG Glucose 169 H Oxyhemoglobin Carboxyhemoglobin Sodium Potassium Chloride Carbon Dioxide BUN Creatinine Glucose POC Glucose 155 H Lactic Acid Calcium Phosphorus Magnesium Ferritin Direct Bilirubin AST ALT Alkaline Phosphatase Lactate Dehydrogenase Total Creatine Kinase C-Reactive Protein Total Protein Albumin Triglycerides Arterial Blood Glucose 169 H Arterial Blood Ionized Calcium Urine Creatinine Urine Chloride Vancomycin Trough Coronavirus (PCR) Crossmatch 06/23/20 06/23/20 06/23/20 04:00 04:00 05:24 WBC 27.4 H RBC Hgb 11.3 L Hct 33.8 L MCHC RDW Plt Count Lymph % (Auto) [place] % (Auto) Lymph # (Auto) [place] # (Auto) Eos # (Auto) Baso # (Auto) Seg Neutrophils % Seg Neuts % (Manual) 93.0 H Lymphocytes % (Manual) 1.0 L Monocytes % (Manual) Basophils % (Manual) Nucleated RBC % 1.0 H Seg Neutrophils # Seg Neutrophils # Man 25.5 H Lymphocytes # (Manual) 0.3 L Monocytes # (Manual) 1.1 H Eosinophils # (Manual) Basophils # (Manual) PT INR APTT D-Dimer Heparin Anti-Xa Level ABG pH POC ABG pCO2 POC ABG pO2 ABG pO2 ABG HCO3 ABG O2 Saturation ABG Base Excess ABG Hemoglobin ABG Oxyhemoglobin ABG Sodium ABG Potassium ABG Chloride ABG Glucose Oxyhemoglobin Carboxyhemoglobin Sodium Potassium Chloride 107.6 H Carbon Dioxide 20 L BUN 100 H Creatinine 4.7 H Glucose 168 H POC Glucose 151 H Lactic Acid Calcium Phosphorus Magnesium Ferritin Direct Bilirubin AST ALT Alkaline Phosphatase Lactate Dehydrogenase Total Creatine Kinase C-Reactive Protein Total Protein Albumin Triglycerides Arterial Blood Glucose Arterial Blood Ionized Calcium Urine Creatinine Urine Chloride Vancomycin Trough Coronavirus (PCR) Crossmatch 06/23/20 06/23/20 06/23/20 11:30 17:18 23:50 WBC RBC Hgb Hct MCHC RDW Plt Count Lymph % (Auto) [place] % (Auto) Lymph # (Auto) [place] # (Auto) Eos # (Auto) Baso # (Auto) Seg Neutrophils % Seg Neuts % (Manual) Lymphocytes % (Manual) Monocytes % (Manual) Basophils % (Manual) Nucleated RBC % Seg Neutrophils # Seg Neutrophils # Man Lymphocytes # (Manual) Monocytes # (Manual) Eosinophils # (Manual) Basophils # (Manual) PT INR APTT D-Dimer Heparin Anti-Xa Level ABG pH POC ABG pCO2 POC ABG pO2 ABG pO2 ABG HCO3 ABG O2 Saturation ABG Base Excess ABG Hemoglobin ABG Oxyhemoglobin ABG Sodium ABG Potassium ABG Chloride ABG Glucose Oxyhemoglobin Carboxyhemoglobin Sodium Potassium Chloride Carbon Dioxide BUN Creatinine Glucose POC Glucose 157 H 156 H 162 H Lactic Acid Calcium Phosphorus Magnesium Ferritin Direct Bilirubin AST ALT Alkaline Phosphatase Lactate Dehydrogenase Total Creatine Kinase C-Reactive Protein Total Protein Albumin Triglycerides Arterial Blood Glucose Arterial Blood Ionized Calcium Urine Creatinine Urine Chloride Vancomycin Trough Coronavirus (PCR) Crossmatch 06/24/20 06/24/20 06/24/20 04:41 05:57 06:30 WBC 34.3 H RBC Hgb 10.9 L Hct 32.6 L MCHC RDW Plt Count Lymph % (Auto) 2.0 L [place] % (Auto) Lymph # (Auto) 0.7 L [place] # (Auto) 1.2 H Eos # (Auto) Baso # (Auto) Seg Neutrophils % Seg Neuts % (Manual) 96.0 H Lymphocytes % (Manual) 3.0 L Monocytes % (Manual) Basophils % (Manual) Nucleated RBC % Seg Neutrophils # 32.3 H Seg Neutrophils # Man 32.9 H Lymphocytes # (Manual) 1.0 L Monocytes # (Manual) Eosinophils # (Manual) Basophils # (Manual) PT INR APTT D-Dimer Heparin Anti-Xa Level ABG pH POC ABG pCO2 POC ABG pO2 71.1 L ABG pO2 ABG HCO3 ABG O2 Saturation ABG Base Excess ABG Hemoglobin ABG Oxyhemoglobin 92.4 L ABG Sodium 115.6 L ABG Potassium ABG Chloride ABG Glucose 159 H Oxyhemoglobin Carboxyhemoglobin Sodium Potassium Chloride Carbon Dioxide BUN Creatinine Glucose POC Glucose 143 H Lactic Acid Calcium Phosphorus Magnesium Ferritin Direct Bilirubin AST ALT Alkaline Phosphatase Lactate Dehydrogenase Total Creatine Kinase C-Reactive Protein Total Protein Albumin Triglycerides Arterial Blood Glucose 159 H Arterial Blood Ionized Calcium 4.2 L Urine Creatinine Urine Chloride Vancomycin Trough Coronavirus (PCR) Crossmatch 06/24/20 06/24/20 06/24/20 07:03 09:37 11:56 WBC RBC Hgb Hct MCHC RDW Plt Count Lymph % (Auto) [place] % (Auto) Lymph # (Auto) [place] # (Auto) Eos # (Auto) Baso # (Auto) Seg Neutrophils % Seg Neuts % (Manual) Lymphocytes % (Manual) Monocytes % (Manual) Basophils % (Manual) Nucleated RBC % Seg Neutrophils # Seg Neutrophils # Man Lymphocytes # (Manual) Monocytes # (Manual) Eosinophils # (Manual) Basophils # (Manual) PT INR APTT D-Dimer Heparin Anti-Xa Level 0.26 L ABG pH POC ABG pCO2 POC ABG pO2 ABG pO2 ABG HCO3 ABG O2 Saturation ABG Base Excess ABG Hemoglobin ABG Oxyhemoglobin ABG Sodium ABG Potassium ABG Chloride ABG Glucose Oxyhemoglobin Carboxyhemoglobin Sodium Potassium 5.1 H Chloride Carbon Dioxide BUN 103 H Creatinine 5.0 H Glucose 163 H POC Glucose 149 H Lactic Acid Calcium 7.6 L Phosphorus Magnesium Ferritin Direct Bilirubin AST ALT Alkaline Phosphatase Lactate Dehydrogenase Total Creatine Kinase C-Reactive Protein Total Protein Albumin Triglycerides Arterial Blood Glucose Arterial Blood Ionized Calcium Urine Creatinine Urine Chloride Vancomycin Trough Coronavirus (PCR) Crossmatch 06/24/20 06/25/20 06/25/20 18:09 01:05 03:00 WBC RBC Hgb 10.6 L Hct 32.1 L MCHC RDW Plt Count Lymph % (Auto) [place] % (Auto) Lymph # (Auto) [place] # (Auto) Eos # (Auto) Baso # (Auto) Seg Neutrophils % Seg Neuts % (Manual) Lymphocytes % (Manual) Monocytes % (Manual) Basophils % (Manual) Nucleated RBC % Seg Neutrophils # Seg Neutrophils # Man Lymphocytes # (Manual) Monocytes # (Manual) Eosinophils # (Manual) Basophils # (Manual) PT INR APTT D-Dimer Heparin Anti-Xa Level ABG pH POC ABG pCO2 POC ABG pO2 ABG pO2 ABG HCO3 ABG O2 Saturation ABG Base Excess ABG Hemoglobin ABG Oxyhemoglobin ABG Sodium ABG Potassium ABG Chloride ABG Glucose Oxyhemoglobin Carboxyhemoglobin Sodium Potassium Chloride Carbon Dioxide BUN Creatinine Glucose POC Glucose 141 H 137 H Lactic Acid Calcium Phosphorus Magnesium Ferritin Direct Bilirubin AST ALT Alkaline Phosphatase Lactate Dehydrogenase Total Creatine Kinase C-Reactive Protein Total Protein Albumin Triglycerides Arterial Blood Glucose Arterial Blood Ionized Calcium Urine Creatinine Urine Chloride Vancomycin Trough Coronavirus (PCR) Crossmatch 06/25/20 06/25/20 06/25/20 03:48 05:17 12:08 WBC RBC Hgb Hct MCHC RDW Plt Count Lymph % (Auto) [place] % (Auto) Lymph # (Auto) [place] # (Auto) Eos # (Auto) Baso # (Auto) Seg Neutrophils % Seg Neuts % (Manual) Lymphocytes % (Manual) Monocytes % (Manual) Basophils % (Manual) Nucleated RBC % Seg Neutrophils # Seg Neutrophils # Man Lymphocytes # (Manual) Monocytes # (Manual) Eosinophils # (Manual) Basophils # (Manual) PT INR APTT D-Dimer Heparin Anti-Xa Level ABG pH POC ABG pCO2 29.4 L POC ABG pO2 67.1 L ABG pO2 ABG HCO3 ABG O2 Saturation ABG Base Excess ABG Hemoglobin 11.5 L ABG Oxyhemoglobin ABG Sodium 124.1 L ABG Potassium 4.6 H ABG Chloride ABG Glucose 159 H Oxyhemoglobin Carboxyhemoglobin Sodium Potassium Chloride Carbon Dioxide BUN Creatinine Glucose POC Glucose 149 H 150 H Lactic Acid Calcium Phosphorus Magnesium Ferritin Direct Bilirubin AST ALT Alkaline Phosphatase Lactate Dehydrogenase Total Creatine Kinase C-Reactive Protein Total Protein Albumin Triglycerides Arterial Blood Glucose 159 H Arterial Blood Ionized Calcium 4.2 L Urine Creatinine Urine Chloride Vancomycin Trough Coronavirus (PCR) Crossmatch 06/25/20 06/25/20 06/25/20 16:27 16:35 17:27 WBC RBC Hgb Hct MCHC RDW Plt Count Lymph % (Auto) [place] % (Auto) Lymph # (Auto) [place] # (Auto) Eos # (Auto) Baso # (Auto) Seg Neutrophils % Seg Neuts % (Manual) Lymphocytes % (Manual) Monocytes % (Manual) Basophils % (Manual) Nucleated RBC % Seg Neutrophils # Seg Neutrophils # Man Lymphocytes # (Manual) Monocytes # (Manual) Eosinophils # (Manual) Basophils # (Manual) PT INR APTT D-Dimer Heparin Anti-Xa Level < 0.10 L ABG pH POC ABG pCO2 POC ABG pO2 ABG pO2 ABG HCO3 ABG O2 Saturation ABG Base Excess ABG Hemoglobin ABG Oxyhemoglobin ABG Sodium ABG Potassium ABG Chloride ABG Glucose Oxyhemoglobin Carboxyhemoglobin Sodium Potassium Chloride Carbon Dioxide BUN Creatinine Glucose POC Glucose 143 H 156 H Lactic Acid Calcium Phosphorus Magnesium Ferritin Direct Bilirubin AST ALT Alkaline Phosphatase Lactate Dehydrogenase Total Creatine Kinase C-Reactive Protein Total Protein Albumin Triglycerides Arterial Blood Glucose Arterial Blood Ionized Calcium Urine Creatinine Urine Chloride Vancomycin Trough Coronavirus (PCR) Crossmatch 06/25/20 06/25/20 06/25/20 20:00 20:55 23:10 WBC 32.7 H RBC 3.06 L Hgb 9.0 L 9.5 L Hct 26.7 L 28.6 L MCHC RDW Plt Count Lymph % (Auto) [place] % (Auto) Lymph # (Auto) [place] # (Auto) Eos # (Auto) Baso # (Auto) Seg Neutrophils % Seg Neuts % (Manual) Lymphocytes % (Manual) 2.0 L Monocytes % (Manual) Basophils % (Manual) Nucleated RBC % Seg Neutrophils # Seg Neutrophils # Man 30.7 H Lymphocytes # (Manual) 0.7 L Monocytes # (Manual) 1.3 H Eosinophils # (Manual) Basophils # (Manual) PT 17.7 H INR 1.47 H APTT 65.8 H* D-Dimer Heparin Anti-Xa Level ABG pH POC ABG pCO2 POC ABG pO2 ABG pO2 ABG HCO3 ABG O2 Saturation ABG Base Excess ABG Hemoglobin ABG Oxyhemoglobin ABG Sodium ABG Potassium ABG Chloride ABG Glucose Oxyhemoglobin Carboxyhemoglobin Sodium Potassium Chloride Carbon Dioxide BUN Creatinine Glucose POC Glucose Lactic Acid Calcium Phosphorus Magnesium Ferritin Direct Bilirubin AST ALT Alkaline Phosphatase Lactate Dehydrogenase Total Creatine Kinase C-Reactive Protein Total Protein Albumin Triglycerides Arterial Blood Glucose Arterial Blood Ionized Calcium Urine Creatinine Urine Chloride Vancomycin Trough Coronavirus (PCR) Crossmatch 06/25/20 06/26/20 06/26/20 23:14 01:30 03:25 WBC RBC Hgb Hct MCHC RDW Plt Count Lymph % (Auto) [place] % (Auto) Lymph # (Auto) [place] # (Auto) Eos # (Auto) Baso # (Auto) Seg Neutrophils % Seg Neuts % (Manual) Lymphocytes % (Manual) Monocytes % (Manual) Basophils % (Manual) Nucleated RBC % Seg Neutrophils # Seg Neutrophils # Man Lymphocytes # (Manual) Monocytes # (Manual) Eosinophils # (Manual) Basophils # (Manual) PT INR APTT D-Dimer Heparin Anti-Xa Level < 0.10 L ABG pH POC ABG pCO2 POC ABG pO2 ABG pO2 ABG HCO3 ABG O2 Saturation ABG Base Excess ABG Hemoglobin 11.8 L ABG Oxyhemoglobin ABG Sodium 127.1 L ABG Potassium 5.4 H ABG Chloride ABG Glucose 155 H Oxyhemoglobin Carboxyhemoglobin 0.3 L Sodium Potassium Chloride Carbon Dioxide BUN Creatinine Glucose POC Glucose 148 H Lactic Acid Calcium Phosphorus Magnesium Ferritin Direct Bilirubin AST ALT Alkaline Phosphatase Lactate Dehydrogenase Total Creatine Kinase C-Reactive Protein Total Protein Albumin Triglycerides Arterial Blood Glucose 155 H Arterial Blood Ionized Calcium 4.2 L Urine Creatinine Urine Chloride Vancomycin Trough Coronavirus (PCR) Crossmatch 06/26/20 06/26/20 06/26/20 03:59 05:14 05:47 WBC 36.5 H RBC 3.26 L Hgb 9.7 L Hct 28.2 L MCHC RDW Plt Count Lymph % (Auto) [place] % (Auto) Lymph # (Auto) [place] # (Auto) Eos # (Auto) Baso # (Auto) Seg Neutrophils % Seg Neuts % (Manual) 92.0 H Lymphocytes % (Manual) 4.0 L Monocytes % (Manual) Basophils % (Manual) Nucleated RBC % Seg Neutrophils # Seg Neutrophils # Man 33.6 H Lymphocytes # (Manual) Monocytes # (Manual) Eosinophils # (Manual) Basophils # (Manual) PT INR APTT D-Dimer Heparin Anti-Xa Level ABG pH POC ABG pCO2 POC ABG pO2 ABG pO2 ABG HCO3 ABG O2 Saturation ABG Base Excess ABG Hemoglobin ABG Oxyhemoglobin ABG Sodium ABG Potassium ABG Chloride ABG Glucose Oxyhemoglobin Carboxyhemoglobin Sodium Potassium 5.9 H Chloride Carbon Dioxide 20 L BUN 144 H Creatinine 6.4 H Glucose 149 H POC Glucose 128 H Lactic Acid Calcium 7.6 L Phosphorus Magnesium Ferritin Direct Bilirubin AST ALT Alkaline Phosphatase Lactate Dehydrogenase Total Creatine Kinase C-Reactive Protein Total Protein Albumin Triglycerides Arterial Blood Glucose Arterial Blood Ionized Calcium Urine Creatinine Urine Chloride Vancomycin Trough Coronavirus (PCR) Crossmatch 06/26/20 06/26/20 06/26/20 05:47 12:47 17:42 WBC RBC Hgb Hct MCHC RDW Plt Count Lymph % (Auto) [place] % (Auto) Lymph # (Auto) [place] # (Auto) Eos # (Auto) Baso # (Auto) Seg Neutrophils % Seg Neuts % (Manual) Lymphocytes % (Manual) Monocytes % (Manual) Basophils % (Manual) Nucleated RBC % Seg Neutrophils # Seg Neutrophils # Man Lymphocytes # (Manual) Monocytes # (Manual) Eosinophils # (Manual) Basophils # (Manual) PT 17.4 H INR 1.44 H APTT D-Dimer Heparin Anti-Xa Level ABG pH POC ABG pCO2 POC ABG pO2 ABG pO2 ABG HCO3 ABG O2 Saturation ABG Base Excess ABG Hemoglobin ABG Oxyhemoglobin ABG Sodium ABG Potassium ABG Chloride ABG Glucose Oxyhemoglobin Carboxyhemoglobin Sodium Potassium Chloride Carbon Dioxide BUN Creatinine Glucose POC Glucose 124 H 127 H Lactic Acid Calcium Phosphorus Magnesium Ferritin Direct Bilirubin AST ALT Alkaline Phosphatase Lactate Dehydrogenase Total Creatine Kinase C-Reactive Protein Total Protein Albumin Triglycerides Arterial Blood Glucose Arterial Blood Ionized Calcium Urine Creatinine Urine Chloride Vancomycin Trough Coronavirus (PCR) Crossmatch 06/26/20 06/27/20 06/27/20 23:30 03:32 04:00 WBC RBC Hgb 8.7 L Hct 26.4 L MCHC RDW Plt Count Lymph % (Auto) [place] % (Auto) Lymph # (Auto) [place] # (Auto) Eos # (Auto) Baso # (Auto) Seg Neutrophils % Seg Neuts % (Manual) Lymphocytes % (Manual) Monocytes % (Manual) Basophils % (Manual) Nucleated RBC % Seg Neutrophils # Seg Neutrophils # Man Lymphocytes # (Manual) Monocytes # (Manual) Eosinophils # (Manual) Basophils # (Manual) PT INR APTT D-Dimer Heparin Anti-Xa Level ABG pH 7.298 L POC ABG pCO2 POC ABG pO2 ABG pO2 ABG HCO3 ABG O2 Saturation ABG Base Excess ABG Hemoglobin 9.6 L ABG Oxyhemoglobin ABG Sodium 124.4 L ABG Potassium 6.6 H ABG Chloride ABG Glucose 136 H Oxyhemoglobin Carboxyhemoglobin Sodium Potassium Chloride Carbon Dioxide BUN Creatinine Glucose POC Glucose 123 H Lactic Acid Calcium Phosphorus Magnesium Ferritin Direct Bilirubin AST ALT Alkaline Phosphatase Lactate Dehydrogenase Total Creatine Kinase C-Reactive Protein Total Protein Albumin Triglycerides Arterial Blood Glucose 136 H Arterial Blood Ionized Calcium 4.1 L Urine Creatinine Urine Chloride Vancomycin Trough Coronavirus (PCR) Crossmatch 06/27/20 06/27/20 06/27/20 05:26 10:14 11:58 WBC RBC Hgb Hct MCHC RDW Plt Count Lymph % (Auto) [place] % (Auto) Lymph # (Auto) [place] # (Auto) Eos # (Auto) Baso # (Auto) Seg Neutrophils % Seg Neuts % (Manual) Lymphocytes % (Manual) Monocytes % (Manual) Basophils % (Manual) Nucleated RBC % Seg Neutrophils # Seg Neutrophils # Man Lymphocytes # (Manual) Monocytes # (Manual) Eosinophils # (Manual) Basophils # (Manual) PT INR APTT D-Dimer Heparin Anti-Xa Level ABG pH POC ABG pCO2 POC ABG pO2 ABG pO2 ABG HCO3 ABG O2 Saturation ABG Base Excess ABG Hemoglobin ABG Oxyhemoglobin ABG Sodium ABG Potassium ABG Chloride ABG Glucose Oxyhemoglobin Carboxyhemoglobin Sodium 136 L Potassium 7.0 H* Chloride 97.8 L Carbon Dioxide BUN 172 H Creatinine 7.4 H Glucose 129 H POC Glucose 124 H 115 H Lactic Acid Calcium 7.6 L Phosphorus Magnesium Ferritin Direct Bilirubin AST ALT Alkaline Phosphatase Lactate Dehydrogenase Total Creatine Kinase C-Reactive Protein Total Protein Albumin Triglycerides Arterial Blood Glucose Arterial Blood Ionized Calcium Urine Creatinine Urine Chloride Vancomycin Trough Coronavirus (PCR) Crossmatch 06/27/20 06/27/20 06/27/20 17:32 18:30 23:24 WBC RBC Hgb Hct MCHC RDW Plt Count Lymph % (Auto) [place] % (Auto) Lymph # (Auto) [place] # (Auto) Eos # (Auto) Baso # (Auto) Seg Neutrophils % Seg Neuts % (Manual) Lymphocytes % (Manual) Monocytes % (Manual) Basophils % (Manual) Nucleated RBC % Seg Neutrophils # Seg Neutrophils # Man Lymphocytes # (Manual) Monocytes # (Manual) Eosinophils # (Manual) Basophils # (Manual) PT INR APTT D-Dimer Heparin Anti-Xa Level ABG pH POC ABG pCO2 POC ABG pO2 ABG pO2 ABG HCO3 ABG O2 Saturation ABG Base Excess ABG Hemoglobin ABG Oxyhemoglobin ABG Sodium ABG Potassium ABG Chloride ABG Glucose Oxyhemoglobin Carboxyhemoglobin Sodium Potassium 7.3 H* Chloride Carbon Dioxide BUN Creatinine Glucose POC Glucose 122 H 116 H Lactic Acid Calcium Phosphorus Magnesium Ferritin Direct Bilirubin AST ALT Alkaline Phosphatase Lactate Dehydrogenase Total Creatine Kinase C-Reactive Protein Total Protein Albumin Triglycerides Arterial Blood Glucose Arterial Blood Ionized Calcium Urine Creatinine Urine Chloride Vancomycin Trough Coronavirus (PCR) Crossmatch 06/28/20 06/28/20 06/28/20 00:00 02:16 05:37 WBC RBC Hgb Hct MCHC RDW Plt Count Lymph % (Auto) [place] % (Auto) Lymph # (Auto) [place] # (Auto) Eos # (Auto) Baso # (Auto) Seg Neutrophils % Seg Neuts % (Manual) Lymphocytes % (Manual) Monocytes % (Manual) Basophils % (Manual) Nucleated RBC % Seg Neutrophils # Seg Neutrophils # Man Lymphocytes # (Manual) Monocytes # (Manual) Eosinophils # (Manual) Basophils # (Manual) PT INR APTT D-Dimer Heparin Anti-Xa Level ABG pH POC ABG pCO2 POC ABG pO2 79.0 L ABG pO2 ABG HCO3 ABG O2 Saturation ABG Base Excess ABG Hemoglobin 11.7 L ABG Oxyhemoglobin ABG Sodium 128.1 L ABG Potassium 6.6 H ABG Chloride ABG Glucose 124 H Oxyhemoglobin Carboxyhemoglobin Sodium Potassium 7.3 H* Chloride Carbon Dioxide BUN Creatinine Glucose POC Glucose 115 H Lactic Acid Calcium Phosphorus Magnesium Ferritin Direct Bilirubin AST ALT Alkaline Phosphatase Lactate Dehydrogenase Total Creatine Kinase C-Reactive Protein Total Protein Albumin Triglycerides Arterial Blood Glucose 124 H Arterial Blood Ionized Calcium 4.2 L Urine Creatinine Urine Chloride Vancomycin Trough Coronavirus (PCR) Crossmatch 06/28/20 06/28/20 06/28/20 10:03 10:03 11:51 WBC 33.6 H RBC 3.03 L Hgb 8.9 L Hct 27.0 L MCHC RDW Plt Count Lymph % (Auto) [place] % (Auto) Lymph # (Auto) [place] # (Auto) Eos # (Auto) Baso # (Auto) Seg Neutrophils % Seg Neuts % (Manual) Lymphocytes % (Manual) Monocytes % (Manual) Basophils % (Manual) Nucleated RBC % Seg Neutrophils # Seg Neutrophils # Man Lymphocytes # (Manual) Monocytes # (Manual) Eosinophils # (Manual) Basophils # (Manual) PT INR APTT D-Dimer Heparin Anti-Xa Level ABG pH POC ABG pCO2 POC ABG pO2 ABG pO2 ABG HCO3 ABG O2 Saturation ABG Base Excess ABG Hemoglobin ABG Oxyhemoglobin ABG Sodium ABG Potassium ABG Chloride ABG Glucose Oxyhemoglobin Carboxyhemoglobin Sodium 136 L Potassium 6.5 H* Chloride Carbon Dioxide 20 L BUN 129 H Creatinine 5.8 H Glucose 113 H POC Glucose 107 H Lactic Acid Calcium 7.6 L Phosphorus Magnesium Ferritin Direct Bilirubin AST ALT Alkaline Phosphatase Lactate Dehydrogenase Total Creatine Kinase C-Reactive Protein Total Protein Albumin Triglycerides Arterial Blood Glucose Arterial Blood Ionized Calcium Urine Creatinine Urine Chloride Vancomycin Trough Coronavirus (PCR) Crossmatch 06/28/20 06/28/20 06/29/20 17:45 Unknown 03:15 WBC RBC Hgb Hct MCHC RDW Plt Count Lymph % (Auto) [place] % (Auto) Lymph # (Auto) [place] # (Auto) Eos # (Auto) Baso # (Auto) Seg Neutrophils % Seg Neuts % (Manual) Lymphocytes % (Manual) Monocytes % (Manual) Basophils % (Manual) Nucleated RBC % Seg Neutrophils # Seg Neutrophils # Man Lymphocytes # (Manual) Monocytes # (Manual) Eosinophils # (Manual) Basophils # (Manual) PT INR APTT D-Dimer Heparin Anti-Xa Level ABG pH POC ABG pCO2 POC ABG pO2 ABG pO2 ABG HCO3 ABG O2 Saturation ABG Base Excess ABG Hemoglobin 7.8 L ABG Oxyhemoglobin ABG Sodium 127.4 L ABG Potassium 5.5 H ABG Chloride 97.0 L ABG Glucose 96 H Oxyhemoglobin Carboxyhemoglobin Sodium Potassium 5.4 H Chloride Carbon Dioxide BUN Creatinine Glucose POC Glucose 117 H Lactic Acid Calcium Phosphorus Magnesium Ferritin Direct Bilirubin AST ALT Alkaline Phosphatase Lactate Dehydrogenase Total Creatine Kinase C-Reactive Protein Total Protein Albumin Triglycerides Arterial Blood Glucose 96 H Arterial Blood Ionized Calcium 4.0 L Urine Creatinine Urine Chloride Vancomycin Trough Coronavirus (PCR) Crossmatch 06/29/20 06/29/20 06/29/20 03:45 Unknown Unknown WBC RBC Hgb Hct MCHC RDW Plt Count Lymph % (Auto) [place] % (Auto) Lymph # (Auto) [place] # (Auto) Eos # (Auto) Baso # (Auto) Seg Neutrophils % Seg Neuts % (Manual) Lymphocytes % (Manual) Monocytes % (Manual) Basophils % (Manual) Nucleated RBC % Seg Neutrophils # Seg Neutrophils # Man Lymphocytes # (Manual) Monocytes # (Manual) Eosinophils # (Manual) Basophils # (Manual) PT INR APTT D-Dimer Heparin Anti-Xa Level ABG pH POC ABG pCO2 POC ABG pO2 ABG pO2 ABG HCO3 ABG O2 Saturation ABG Base Excess ABG Hemoglobin ABG Oxyhemoglobin ABG Sodium ABG Potassium ABG Chloride ABG Glucose Oxyhemoglobin Carboxyhemoglobin Sodium 135 L Potassium 6.0 H 6.1 H* Chloride 94.8 L Carbon Dioxide BUN 109 H 114 H Creatinine 5.5 H Glucose POC Glucose Lactic Acid Calcium 7.4 L Phosphorus Magnesium Ferritin Direct Bilirubin AST 47 H ALT Alkaline Phosphatase Lactate Dehydrogenase Total Creatine Kinase C-Reactive Protein Total Protein 4.9 L Albumin 2.2 L Triglycerides Arterial Blood Glucose Arterial Blood Ionized Calcium Urine Creatinine Urine Chloride Vancomycin Trough Coronavirus (PCR) Crossmatch 06/29/20 06/29/20 06/30/20 Unknown Unknown 03:32 WBC 20.7 H RBC 2.57 L Hgb 7.6 L Hct 23.0 L MCHC RDW Plt Count Lymph % (Auto) [place] % (Auto) Lymph # (Auto) [place] # (Auto) Eos # (Auto) Baso # (Auto) Seg Neutrophils % Seg Neuts % (Manual) Lymphocytes % (Manual) Monocytes % (Manual) Basophils % (Manual) Nucleated RBC % Seg Neutrophils # Seg Neutrophils # Man Lymphocytes # (Manual) Monocytes # (Manual) Eosinophils # (Manual) Basophils # (Manual) PT INR APTT D-Dimer Heparin Anti-Xa Level ABG pH POC ABG pCO2 POC ABG pO2 ABG pO2 ABG HCO3 ABG O2 Saturation ABG Base Excess ABG Hemoglobin 11.4 L ABG Oxyhemoglobin ABG Sodium 130.1 L ABG Potassium 5.0 H ABG Chloride ABG Glucose Oxyhemoglobin Carboxyhemoglobin Sodium Potassium Chloride Carbon Dioxide BUN Creatinine Glucose POC Glucose Lactic Acid Calcium Phosphorus Magnesium Ferritin Direct Bilirubin AST ALT Alkaline Phosphatase Lactate Dehydrogenase Total Creatine Kinase 618 H C-Reactive Protein Total Protein Albumin Triglycerides Arterial Blood Glucose Arterial Blood Ionized Calcium 3.9 L Urine Creatinine Urine Chloride Vancomycin Trough Coronavirus (PCR) Crossmatch 06/30/20 06/30/20 06/30/20 03:50 03:50 11:39 WBC 13.1 H RBC Hgb Hct MCHC RDW Plt Count Lymph % (Auto) [place] % (Auto) Lymph # (Auto) [place] # (Auto) Eos # (Auto) Baso # (Auto) Seg Neutrophils % Seg Neuts % (Manual) 95.0 H Lymphocytes % (Manual) 3.0 L Monocytes % (Manual) Basophils % (Manual) Nucleated RBC % Seg Neutrophils # Seg Neutrophils # Man 12.4 H Lymphocytes # (Manual) 0.4 L Monocytes # (Manual) Eosinophils # (Manual) Basophils # (Manual) PT INR APTT D-Dimer Heparin Anti-Xa Level ABG pH POC ABG pCO2 POC ABG pO2 ABG pO2 ABG HCO3 ABG O2 Saturation ABG Base Excess ABG Hemoglobin ABG Oxyhemoglobin ABG Sodium ABG Potassium ABG Chloride ABG Glucose Oxyhemoglobin Carboxyhemoglobin Sodium 135 L Potassium 5.4 H D Chloride 93.6 L Carbon Dioxide BUN 85 H Creatinine 4.6 H Glucose POC Glucose 111 H Lactic Acid Calcium 7.1 L Phosphorus 9.40 H Magnesium Ferritin Direct Bilirubin AST ALT Alkaline Phosphatase Lactate Dehydrogenase Total Creatine Kinase C-Reactive Protein Total Protein Albumin Triglycerides Arterial Blood Glucose Arterial Blood Ionized Calcium Urine Creatinine Urine Chloride Vancomycin Trough Coronavirus (PCR) Crossmatch 06/30/20 06/30/20 07/01/20 13:12 Unknown 03:19 WBC RBC Hgb 7.8 L D Hct 23.2 L D MCHC RDW Plt Count Lymph % (Auto) [place] % (Auto) Lymph # (Auto) [place] # (Auto) Eos # (Auto) Baso # (Auto) Seg Neutrophils % Seg Neuts % (Manual) Lymphocytes % (Manual) Monocytes % (Manual) Basophils % (Manual) Nucleated RBC % Seg Neutrophils # Seg Neutrophils # Man Lymphocytes # (Manual) Monocytes # (Manual) Eosinophils # (Manual) Basophils # (Manual) PT INR APTT D-Dimer Heparin Anti-Xa Level ABG pH 7.461 H POC ABG pCO2 POC ABG pO2 77.2 L ABG pO2 ABG HCO3 ABG O2 Saturation ABG Base Excess ABG Hemoglobin 6.9 L ABG Oxyhemoglobin ABG Sodium 128.5 L ABG Potassium ABG Chloride 97.0 L ABG Glucose Oxyhemoglobin Carboxyhemoglobin Sodium Potassium Chloride Carbon Dioxide BUN Creatinine Glucose POC Glucose Lactic Acid Calcium Phosphorus Magnesium Ferritin Direct Bilirubin AST ALT Alkaline Phosphatase Lactate Dehydrogenase Total Creatine Kinase C-Reactive Protein Total Protein Albumin Triglycerides Arterial Blood Glucose Arterial Blood Ionized Calcium 3.7 L Urine Creatinine Urine Chloride Vancomycin Trough Coronavirus (PCR) Positive A Crossmatch 07/01/20 07/01/20 07/01/20 06:00 06:00 11:04 WBC 16.7 H RBC 2.16 L Hgb 6.4 L Hct 19.2 L* MCHC RDW Plt Count Lymph % (Auto) [place] % (Auto) Lymph # (Auto) [place] # (Auto) Eos # (Auto) Baso # (Auto) Seg Neutrophils % Seg Neuts % (Manual) Lymphocytes % (Manual) Monocytes % (Manual) Basophils % (Manual) Nucleated RBC % Seg Neutrophils # Seg Neutrophils # Man Lymphocytes # (Manual) Monocytes # (Manual) Eosinophils # (Manual) Basophils # (Manual) PT INR APTT D-Dimer Heparin Anti-Xa Level ABG pH POC ABG pCO2 POC ABG pO2 ABG pO2 ABG HCO3 ABG O2 Saturation ABG Base Excess ABG Hemoglobin ABG Oxyhemoglobin ABG Sodium ABG Potassium ABG Chloride ABG Glucose Oxyhemoglobin Carboxyhemoglobin Sodium 136 L Potassium Chloride 95.8 L Carbon Dioxide BUN 72 H Creatinine 4.3 H Glucose POC Glucose Lactic Acid Calcium 6.7 L Phosphorus Magnesium Ferritin Direct Bilirubin AST ALT Alkaline Phosphatase Lactate Dehydrogenase Total Creatine Kinase C-Reactive Protein Total Protein Albumin Triglycerides 250 H Arterial Blood Glucose Arterial Blood Ionized Calcium Urine Creatinine Urine Chloride Vancomycin Trough Coronavirus (PCR) Crossmatch See Detail 07/02/20 07/02/20 07/02/20 04:44 06:00 11:33 WBC 14.6 H RBC 2.47 L Hgb 7.4 L Hct 21.8 L MCHC RDW Plt Count Lymph % (Auto) [place] % (Auto) Lymph # (Auto) [place] # (Auto) Eos # (Auto) Baso # (Auto) Seg Neutrophils % Seg Neuts % (Manual) Lymphocytes % (Manual) Monocytes % (Manual) Basophils % (Manual) Nucleated RBC % Seg Neutrophils # Seg Neutrophils # Man Lymphocytes # (Manual) Monocytes # (Manual) Eosinophils # (Manual) Basophils # (Manual) PT INR APTT D-Dimer Heparin Anti-Xa Level ABG pH 7.457 H POC ABG pCO2 POC ABG pO2 79.4 L ABG pO2 ABG HCO3 ABG O2 Saturation ABG Base Excess ABG Hemoglobin 8.5 L ABG Oxyhemoglobin ABG Sodium 128.4 L ABG Potassium ABG Chloride 97.0 L ABG Glucose 100 H Oxyhemoglobin Carboxyhemoglobin Sodium 133 L Potassium 5.2 H Chloride 93.3 L Carbon Dioxide BUN 66 H Creatinine 4.1 H Glucose 102 H POC Glucose Lactic Acid Calcium 7.2 L Phosphorus Magnesium Ferritin Direct Bilirubin AST ALT Alkaline Phosphatase Lactate Dehydrogenase Total Creatine Kinase C-Reactive Protein Total Protein Albumin Triglycerides Arterial Blood Glucose 100 H Arterial Blood Ionized Calcium 3.9 L Urine Creatinine Urine Chloride Vancomycin Trough Coronavirus (PCR) Crossmatch 07/02/20 07/03/20 07/03/20 11:33 03:54 09:15 WBC 16.6 H RBC 2.44 L Hgb 7.3 L Hct 21.4 L MCHC RDW Plt Count Lymph % (Auto) [place] % (Auto) Lymph # (Auto) [place] # (Auto) Eos # (Auto) Baso # (Auto) Seg Neutrophils % Seg Neuts % (Manual) Lymphocytes % (Manual) Monocytes % (Manual) Basophils % (Manual) Nucleated RBC % Seg Neutrophils # Seg Neutrophils # Man Lymphocytes # (Manual) Monocytes # (Manual) Eosinophils # (Manual) Basophils # (Manual) PT INR APTT D-Dimer Heparin Anti-Xa Level ABG pH POC ABG pCO2 POC ABG pO2 66.1 L ABG pO2 ABG HCO3 ABG O2 Saturation ABG Base Excess ABG Hemoglobin 8.0 L ABG Oxyhemoglobin ABG Sodium 124.6 L ABG Potassium 5.5 H ABG Chloride 96.0 L ABG Glucose 111 H Oxyhemoglobin Carboxyhemoglobin Sodium Potassium Chloride Carbon Dioxide BUN Creatinine Glucose POC Glucose Lactic Acid Calcium Phosphorus Magnesium Ferritin Direct Bilirubin 0.7 H AST 94 H ALT 60 H Alkaline Phosphatase Lactate Dehydrogenase Total Creatine Kinase C-Reactive Protein Total Protein 4.4 L Albumin 1.9 L Triglycerides Arterial Blood Glucose 111 H Arterial Blood Ionized Calcium 3.8 L Urine Creatinine Urine Chloride Vancomycin Trough Coronavirus (PCR) Crossmatch 07/03/20 07/03/20 07/03/20 09:15 10:10 14:50 WBC RBC Hgb Hct MCHC RDW Plt Count Lymph % (Auto) [place] % (Auto) Lymph # (Auto) [place] # (Auto) Eos # (Auto) Baso # (Auto) Seg Neutrophils % Seg Neuts % (Manual) Lymphocytes % (Manual) Monocytes % (Manual) Basophils % (Manual) Nucleated RBC % Seg Neutrophils # Seg Neutrophils # Man Lymphocytes # (Manual) Monocytes # (Manual) Eosinophils # (Manual) Basophils # (Manual) PT INR APTT D-Dimer 6608.00 H Heparin Anti-Xa Level ABG pH POC ABG pCO2 POC ABG pO2 ABG pO2 ABG HCO3 ABG O2 Saturation ABG Base Excess ABG Hemoglobin ABG Oxyhemoglobin ABG Sodium ABG Potassium ABG Chloride ABG Glucose Oxyhemoglobin Carboxyhemoglobin Sodium 133 L Potassium 6.2 H* Chloride 93.1 L Carbon Dioxide BUN 89 H Creatinine 5.1 H Glucose POC Glucose Lactic Acid Calcium 7.0 L Phosphorus Magnesium Ferritin Direct Bilirubin AST ALT Alkaline Phosphatase Lactate Dehydrogenase Total Creatine Kinase C-Reactive Protein Total Protein Albumin Triglycerides Arterial Blood Glucose Arterial Blood Ionized Calcium Urine Creatinine Urine Chloride Vancomycin Trough Coronavirus (PCR) Positive A Crossmatch 07/03/20 07/03/20 07/03/20 14:50 14:50 14:50 WBC RBC Hgb Hct MCHC RDW Plt Count Lymph % (Auto) [place] % (Auto) Lymph # (Auto) [place] # (Auto) Eos # (Auto) Baso # (Auto) Seg Neutrophils % Seg Neuts % (Manual) Lymphocytes % (Manual) Monocytes % (Manual) Basophils % (Manual) Nucleated RBC % Seg Neutrophils # Seg Neutrophils # Man Lymphocytes # (Manual) Monocytes # (Manual) Eosinophils # (Manual) Basophils # (Manual) PT INR APTT D-Dimer Heparin Anti-Xa Level ABG pH POC ABG pCO2 POC ABG pO2 ABG pO2 ABG HCO3 ABG O2 Saturation ABG Base Excess ABG Hemoglobin ABG Oxyhemoglobin ABG Sodium ABG Potassium ABG Chloride ABG Glucose Oxyhemoglobin Carboxyhemoglobin Sodium Potassium Chloride Carbon Dioxide BUN Creatinine Glucose POC Glucose Lactic Acid < 0.20 L Calcium Phosphorus Magnesium Ferritin 1171.0 H Direct Bilirubin AST ALT Alkaline Phosphatase Lactate Dehydrogenase 525 H Total Creatine Kinase C-Reactive Protein 31.50 H Total Protein Albumin Triglycerides Arterial Blood Glucose Arterial Blood Ionized Calcium Urine Creatinine Urine Chloride Vancomycin Trough Coronavirus (PCR) Crossmatch 07/03/20 07/04/20 07/04/20 16:47 05:20 05:20 WBC 11.8 H RBC 2.32 L Hgb 6.7 L Hct 20.8 L MCHC RDW Plt Count Lymph % (Auto) 2.6 L [place] % (Auto) Lymph # (Auto) 0.3 L [place] # (Auto) Eos # (Auto) Baso # (Auto) Seg Neutrophils % Seg Neuts % (Manual) Lymphocytes % (Manual) Monocytes % (Manual) Basophils % (Manual) Nucleated RBC % Seg Neutrophils # 11.0 H Seg Neutrophils # Man Lymphocytes # (Manual) Monocytes # (Manual) Eosinophils # (Manual) Basophils # (Manual) PT INR APTT D-Dimer Heparin Anti-Xa Level ABG pH POC ABG pCO2 POC ABG pO2 ABG pO2 ABG HCO3 ABG O2 Saturation ABG Base Excess ABG Hemoglobin ABG Oxyhemoglobin ABG Sodium ABG Potassium ABG Chloride ABG Glucose Oxyhemoglobin Carboxyhemoglobin Sodium Potassium 6.0 H Chloride 97.8 L Carbon Dioxide BUN 75 H Creatinine 4.5 H Glucose 121 H POC Glucose 107 H Lactic Acid Calcium 7.9 L Phosphorus Magnesium Ferritin Direct Bilirubin AST ALT Alkaline Phosphatase Lactate Dehydrogenase Total Creatine Kinase C-Reactive Protein Total Protein Albumin Triglycerides Arterial Blood Glucose Arterial Blood Ionized Calcium Urine Creatinine Urine Chloride Vancomycin Trough Coronavirus (PCR) Crossmatch 07/04/20 07/04/20 07/04/20 05:20 05:50 09:25 WBC RBC Hgb Hct MCHC RDW Plt Count Lymph % (Auto) [place] % (Auto) Lymph # (Auto) [place] # (Auto) Eos # (Auto) Baso # (Auto) Seg Neutrophils % Seg Neuts % (Manual) Lymphocytes % (Manual) Monocytes % (Manual) Basophils % (Manual) Nucleated RBC % Seg Neutrophils # Seg Neutrophils # Man Lymphocytes # (Manual) Monocytes # (Manual) Eosinophils # (Manual) Basophils # (Manual) PT INR APTT D-Dimer Heparin Anti-Xa Level ABG pH 7.324 L POC ABG pCO2 POC ABG pO2 ABG pO2 98.9 H ABG HCO3 26.8 H ABG O2 Saturation ABG Base Excess ABG Hemoglobin < 5.1 L ABG Oxyhemoglobin ABG Sodium ABG Potassium ABG Chloride ABG Glucose Oxyhemoglobin Carboxyhemoglobin Sodium Potassium Chloride Carbon Dioxide BUN Creatinine Glucose POC Glucose 114 H Lactic Acid Calcium Phosphorus Magnesium Ferritin Direct Bilirubin AST ALT Alkaline Phosphatase Lactate Dehydrogenase Total Creatine Kinase C-Reactive Protein Total Protein Albumin Triglycerides Arterial Blood Glucose Arterial Blood Ionized Calcium Urine Creatinine Urine Chloride Vancomycin Trough Coronavirus (PCR) Crossmatch See Detail 07/04/20 07/04/20 07/04/20 12:33 17:41 23:04 WBC RBC Hgb Hct MCHC RDW Plt Count Lymph % (Auto) [place] % (Auto) Lymph # (Auto) [place] # (Auto) Eos # (Auto) Baso # (Auto) Seg Neutrophils % Seg Neuts % (Manual) Lymphocytes % (Manual) Monocytes % (Manual) Basophils % (Manual) Nucleated RBC % Seg Neutrophils # Seg Neutrophils # Man Lymphocytes # (Manual) Monocytes # (Manual) Eosinophils # (Manual) Basophils # (Manual) PT INR APTT D-Dimer Heparin Anti-Xa Level ABG pH POC ABG pCO2 POC ABG pO2 ABG pO2 ABG HCO3 ABG O2 Saturation ABG Base Excess ABG Hemoglobin ABG Oxyhemoglobin ABG Sodium ABG Potassium ABG Chloride ABG Glucose Oxyhemoglobin Carboxyhemoglobin Sodium Potassium Chloride Carbon Dioxide BUN Creatinine Glucose POC Glucose 119 H 109 H 116 H Lactic Acid Calcium Phosphorus Magnesium Ferritin Direct Bilirubin AST ALT Alkaline Phosphatase Lactate Dehydrogenase Total Creatine Kinase C-Reactive Protein Total Protein Albumin Triglycerides Arterial Blood Glucose Arterial Blood Ionized Calcium Urine Creatinine Urine Chloride Vancomycin Trough Coronavirus (PCR) Crossmatch 07/05/20 07/05/20 07/05/20 04:30 08:21 08:21 WBC RBC 2.77 L Hgb 7.9 L Hct 23.9 L MCHC RDW 16.7 H Plt Count Lymph % (Auto) 7.5 L [place] % (Auto) Lymph # (Auto) 0.7 L [place] # (Auto) Eos # (Auto) Baso # (Auto) Seg Neutrophils % 85.8 H Seg Neuts % (Manual) Lymphocytes % (Manual) Monocytes % (Manual) Basophils % (Manual) Nucleated RBC % Seg Neutrophils # 7.8 H Seg Neutrophils # Man Lymphocytes # (Manual) Monocytes # (Manual) Eosinophils # (Manual) Basophils # (Manual) PT INR APTT D-Dimer Heparin Anti-Xa Level ABG pH 7.295 L POC ABG pCO2 POC ABG pO2 ABG pO2 151.9 H ABG HCO3 26.8 H ABG O2 Saturation ABG Base Excess ABG Hemoglobin 7.3 L ABG Oxyhemoglobin ABG Sodium ABG Potassium ABG Chloride ABG Glucose Oxyhemoglobin Carboxyhemoglobin Sodium Potassium Chloride Carbon Dioxide BUN Creatinine Glucose POC Glucose Lactic Acid Calcium Phosphorus Magnesium Ferritin Direct Bilirubin AST ALT Alkaline Phosphatase Lactate Dehydrogenase Total Creatine Kinase C-Reactive Protein Total Protein Albumin Triglycerides 258 H Arterial Blood Glucose Arterial Blood Ionized Calcium Urine Creatinine Urine Chloride Vancomycin Trough Coronavirus (PCR) Crossmatch 07/05/20 07/05/20 07/06/20 08:21 12:12 04:29 WBC RBC Hgb Hct MCHC RDW Plt Count Lymph % (Auto) [place] % (Auto) Lymph # (Auto) [place] # (Auto) Eos # (Auto) Baso # (Auto) Seg Neutrophils % Seg Neuts % (Manual) Lymphocytes % (Manual) Monocytes % (Manual) Basophils % (Manual) Nucleated RBC % Seg Neutrophils # Seg Neutrophils # Man Lymphocytes # (Manual) Monocytes # (Manual) Eosinophils # (Manual) Basophils # (Manual) PT INR APTT D-Dimer Heparin Anti-Xa Level ABG pH 7.291 L POC ABG pCO2 51.3 H POC ABG pO2 ABG pO2 ABG HCO3 ABG O2 Saturation ABG Base Excess ABG Hemoglobin 8.5 L ABG Oxyhemoglobin ABG Sodium 129.6 L ABG Potassium 4.8 H ABG Chloride 96.0 L ABG Glucose Oxyhemoglobin Carboxyhemoglobin Sodium 133 L Potassium 5.6 H Chloride 94.4 L Carbon Dioxide BUN 80 H Creatinine 4.2 H Glucose 114 H POC Glucose 106 H Lactic Acid Calcium 7.6 L Phosphorus Magnesium Ferritin Direct Bilirubin 0.5 H AST 75 H ALT 86 H Alkaline Phosphatase Lactate Dehydrogenase Total Creatine Kinase C-Reactive Protein Total Protein 5.6 L D Albumin 1.9 L Triglycerides Arterial Blood Glucose Arterial Blood Ionized Calcium 4.2 L Urine Creatinine Urine Chloride Vancomycin Trough Coronavirus (PCR) Crossmatch 07/06/20 07/06/20 07/06/20 11:35 11:35 12:16 WBC RBC 2.54 L Hgb 7.5 L Hct 21.5 L MCHC 35 H RDW 15.7 H Plt Count Lymph % (Auto) [place] % (Auto) Lymph # (Auto) [place] # (Auto) Eos # (Auto) Baso # (Auto) Seg Neutrophils % Seg Neuts % (Manual) Lymphocytes % (Manual) Monocytes % (Manual) Basophils % (Manual) Nucleated RBC % Seg Neutrophils # Seg Neutrophils # Man Lymphocytes # (Manual) Monocytes # (Manual) Eosinophils # (Manual) Basophils # (Manual) PT INR APTT D-Dimer Heparin Anti-Xa Level ABG pH POC ABG pCO2 POC ABG pO2 ABG pO2 ABG HCO3 ABG O2 Saturation ABG Base Excess ABG Hemoglobin ABG Oxyhemoglobin ABG Sodium ABG Potassium ABG Chloride ABG Glucose Oxyhemoglobin Carboxyhemoglobin Sodium 130 L Potassium Chloride 92.2 L Carbon Dioxide 19 L D BUN 107 H Creatinine 5.1 H Glucose 106 H POC Glucose 106 H Lactic Acid Calcium 7.5 L Phosphorus Magnesium Ferritin Direct Bilirubin AST ALT Alkaline Phosphatase Lactate Dehydrogenase Total Creatine Kinase C-Reactive Protein Total Protein Albumin Triglycerides Arterial Blood Glucose Arterial Blood Ionized Calcium Urine Creatinine Urine Chloride Vancomycin Trough Coronavirus (PCR) Crossmatch 07/06/20 07/06/20 07/06/20 17:01 21:56 23:41 WBC RBC Hgb Hct MCHC RDW Plt Count Lymph % (Auto) [place] % (Auto) Lymph # (Auto) [place] # (Auto) Eos # (Auto) Baso # (Auto) Seg Neutrophils % Seg Neuts % (Manual) Lymphocytes % (Manual) Monocytes % (Manual) Basophils % (Manual) Nucleated RBC % Seg Neutrophils # Seg Neutrophils # Man Lymphocytes # (Manual) Monocytes # (Manual) Eosinophils # (Manual) Basophils # (Manual) PT INR APTT D-Dimer Heparin Anti-Xa Level ABG pH POC ABG pCO2 POC ABG pO2 ABG pO2 ABG HCO3 ABG O2 Saturation ABG Base Excess ABG Hemoglobin ABG Oxyhemoglobin ABG Sodium ABG Potassium ABG Chloride ABG Glucose Oxyhemoglobin Carboxyhemoglobin Sodium 135 L Potassium 5.1 H Chloride Carbon Dioxide BUN 73 H Creatinine 4.0 H Glucose 112 H POC Glucose 109 H 111 H Lactic Acid Calcium 7.8 L Phosphorus Magnesium Ferritin Direct Bilirubin AST ALT Alkaline Phosphatase Lactate Dehydrogenase Total Creatine Kinase C-Reactive Protein Total Protein Albumin Triglycerides Arterial Blood Glucose Arterial Blood Ionized Calcium Urine Creatinine Urine Chloride Vancomycin Trough Coronavirus (PCR) Crossmatch 07/07/20 07/07/20 07/07/20 04:18 05:04 05:29 WBC RBC 2.46 L Hgb 7.6 L Hct 21.5 L MCHC 35 H RDW 16.5 H Plt Count Lymph % (Auto) [place] % (Auto) Lymph # (Auto) [place] # (Auto) Eos # (Auto) Baso # (Auto) Seg Neutrophils % Seg Neuts % (Manual) 82.0 H Lymphocytes % (Manual) Monocytes % (Manual) Basophils % (Manual) Nucleated RBC % 1.0 H Seg Neutrophils # Seg Neutrophils # Man Lymphocytes # (Manual) 1.1 L Monocytes # (Manual) Eosinophils # (Manual) Basophils # (Manual) PT INR APTT D-Dimer Heparin Anti-Xa Level ABG pH POC ABG pCO2 POC ABG pO2 79.6 L ABG pO2 ABG HCO3 ABG O2 Saturation ABG Base Excess ABG Hemoglobin 8.2 L ABG Oxyhemoglobin ABG Sodium 133.3 L ABG Potassium 4.7 H ABG Chloride ABG Glucose 135 H Oxyhemoglobin Carboxyhemoglobin Sodium Potassium Chloride Carbon Dioxide BUN Creatinine Glucose POC Glucose 112 H Lactic Acid Calcium Phosphorus Magnesium Ferritin Direct Bilirubin AST ALT Alkaline Phosphatase Lactate Dehydrogenase Total Creatine Kinase C-Reactive Protein Total Protein Albumin Triglycerides Arterial Blood Glucose 135 H Arterial Blood Ionized Calcium 4.5 L Urine Creatinine Urine Chloride Vancomycin Trough Coronavirus (PCR) Crossmatch 07/07/20 07/07/20 07/07/20 10:17 12:18 17:43 WBC RBC Hgb Hct MCHC RDW Plt Count Lymph % (Auto) [place] % (Auto) Lymph # (Auto) [place] # (Auto) Eos # (Auto) Baso # (Auto) Seg Neutrophils % Seg Neuts % (Manual) Lymphocytes % (Manual) Monocytes % (Manual) Basophils % (Manual) Nucleated RBC % Seg Neutrophils # Seg Neutrophils # Man Lymphocytes # (Manual) Monocytes # (Manual) Eosinophils # (Manual) Basophils # (Manual) PT INR APTT D-Dimer Heparin Anti-Xa Level ABG pH POC ABG pCO2 POC ABG pO2 ABG pO2 ABG HCO3 ABG O2 Saturation ABG Base Excess ABG Hemoglobin ABG Oxyhemoglobin ABG Sodium ABG Potassium ABG Chloride ABG Glucose Oxyhemoglobin Carboxyhemoglobin Sodium 136 L Potassium Chloride 96.8 L Carbon Dioxide BUN 82 H Creatinine 4.3 H Glucose 129 H POC Glucose 108 H 116 H Lactic Acid Calcium 7.8 L Phosphorus Magnesium Ferritin Direct Bilirubin AST ALT Alkaline Phosphatase Lactate Dehydrogenase Total Creatine Kinase C-Reactive Protein Total Protein Albumin Triglycerides Arterial Blood Glucose Arterial Blood Ionized Calcium Urine Creatinine Urine Chloride Vancomycin Trough Coronavirus (PCR) Crossmatch 07/07/20 07/08/20 07/08/20 23:31 04:00 04:00 WBC RBC 2.52 L Hgb 7.3 L Hct 22.2 L MCHC RDW 16.6 H Plt Count Lymph % (Auto) 11.5 L [place] % (Auto) Lymph # (Auto) [place] # (Auto) Eos # (Auto) Baso # (Auto) Seg Neutrophils % 78.2 H Seg Neuts % (Manual) Lymphocytes % (Manual) Monocytes % (Manual) Basophils % (Manual) Nucleated RBC % Seg Neutrophils # 8.0 H Seg Neutrophils # Man Lymphocytes # (Manual) Monocytes # (Manual) Eosinophils # (Manual) Basophils # (Manual) PT INR APTT D-Dimer Heparin Anti-Xa Level ABG pH POC ABG pCO2 POC ABG pO2 ABG pO2 ABG HCO3 ABG O2 Saturation ABG Base Excess ABG Hemoglobin ABG Oxyhemoglobin ABG Sodium ABG Potassium ABG Chloride ABG Glucose Oxyhemoglobin Carboxyhemoglobin Sodium 132 L Potassium 5.4 H Chloride 92.5 L Carbon Dioxide BUN 98 H Creatinine 4.9 H Glucose 105 H POC Glucose 117 H Lactic Acid Calcium 7.9 L Phosphorus Magnesium Ferritin Direct Bilirubin AST ALT Alkaline Phosphatase Lactate Dehydrogenase Total Creatine Kinase C-Reactive Protein Total Protein Albumin Triglycerides Arterial Blood Glucose Arterial Blood Ionized Calcium Urine Creatinine Urine Chloride Vancomycin Trough Coronavirus (PCR) Crossmatch 07/08/20 07/08/20 07/08/20 04:09 11:34 17:05 WBC RBC Hgb Hct MCHC RDW Plt Count Lymph % (Auto) [place] % (Auto) Lymph # (Auto) [place] # (Auto) Eos # (Auto) Baso # (Auto) Seg Neutrophils % Seg Neuts % (Manual) Lymphocytes % (Manual) Monocytes % (Manual) Basophils % (Manual) Nucleated RBC % Seg Neutrophils # Seg Neutrophils # Man Lymphocytes # (Manual) Monocytes # (Manual) Eosinophils # (Manual) Basophils # (Manual) PT INR APTT D-Dimer Heparin Anti-Xa Level ABG pH 7.220 L POC ABG pCO2 60.5 H POC ABG pO2 ABG pO2 ABG HCO3 ABG O2 Saturation ABG Base Excess ABG Hemoglobin 8.2 L ABG Oxyhemoglobin ABG Sodium 131.3 L ABG Potassium 5.2 H ABG Chloride ABG Glucose 103 H Oxyhemoglobin Carboxyhemoglobin Sodium Potassium Chloride Carbon Dioxide BUN Creatinine Glucose POC Glucose 140 H 125 H Lactic Acid Calcium Phosphorus Magnesium Ferritin Direct Bilirubin AST ALT Alkaline Phosphatase Lactate Dehydrogenase Total Creatine Kinase C-Reactive Protein Total Protein Albumin Triglycerides Arterial Blood Glucose 103 H Arterial Blood Ionized Calcium 4.3 L Urine Creatinine Urine Chloride Vancomycin Trough Coronavirus (PCR) Crossmatch 07/08/20 07/08/20 07/09/20 20:21 23:43 05:10 WBC RBC Hgb Hct MCHC RDW Plt Count Lymph % (Auto) [place] % (Auto) Lymph # (Auto) [place] # (Auto) Eos # (Auto) Baso # (Auto) Seg Neutrophils % Seg Neuts % (Manual) Lymphocytes % (Manual) Monocytes % (Manual) Basophils % (Manual) Nucleated RBC % Seg Neutrophils # Seg Neutrophils # Man Lymphocytes # (Manual) Monocytes # (Manual) Eosinophils # (Manual) Basophils # (Manual) PT INR APTT D-Dimer Heparin Anti-Xa Level ABG pH 7.20 L POC ABG pCO2 69.8 H POC ABG pO2 138.9 H 76.1 L ABG pO2 ABG HCO3 ABG O2 Saturation ABG Base Excess ABG Hemoglobin 11.9 L 8.4 L ABG Oxyhemoglobin ABG Sodium 133.1 L 131.2 L ABG Potassium 5.0 H 4.7 H ABG Chloride ABG Glucose 120 H 102 H Oxyhemoglobin Carboxyhemoglobin Sodium Potassium Chloride Carbon Dioxide BUN Creatinine Glucose POC Glucose 118 H Lactic Acid Calcium Phosphorus Magnesium Ferritin Direct Bilirubin AST ALT Alkaline Phosphatase Lactate Dehydrogenase Total Creatine Kinase C-Reactive Protein Total Protein Albumin Triglycerides Arterial Blood Glucose 120 H 102 H Arterial Blood Ionized Calcium 4.4 L 4.3 L Urine Creatinine Urine Chloride Vancomycin Trough Coronavirus (PCR) Crossmatch 07/09/20 07/09/20 07/09/20 11:51 17:04 21:00 WBC RBC Hgb Hct MCHC RDW Plt Count Lymph % (Auto) [place] % (Auto) Lymph # (Auto) [place] # (Auto) Eos # (Auto) Baso # (Auto) Seg Neutrophils % Seg Neuts % (Manual) Lymphocytes % (Manual) Monocytes % (Manual) Basophils % (Manual) Nucleated RBC % Seg Neutrophils # Seg Neutrophils # Man Lymphocytes # (Manual) Monocytes # (Manual) Eosinophils # (Manual) Basophils # (Manual) PT INR APTT D-Dimer Heparin Anti-Xa Level ABG pH POC ABG pCO2 POC ABG pO2 114.2 H ABG pO2 ABG HCO3 ABG O2 Saturation ABG Base Excess ABG Hemoglobin 7.8 L ABG Oxyhemoglobin ABG Sodium 132.3 L ABG Potassium 4.6 H ABG Chloride ABG Glucose Oxyhemoglobin Carboxyhemoglobin Sodium Potassium Chloride Carbon Dioxide BUN Creatinine Glucose POC Glucose 113 H 111 H Lactic Acid Calcium Phosphorus Magnesium Ferritin Direct Bilirubin AST ALT Alkaline Phosphatase Lactate Dehydrogenase Total Creatine Kinase C-Reactive Protein Total Protein Albumin Triglycerides Arterial Blood Glucose Arterial Blood Ionized Calcium 4.4 L Urine Creatinine Urine Chloride Vancomycin Trough Coronavirus (PCR) Crossmatch 07/10/20 07/10/20 07/10/20 03:49 03:55 03:55 WBC 18.1 H RBC 2.37 L Hgb 6.8 L Hct 20.7 L MCHC RDW 16.9 H Plt Count Lymph % (Auto) [place] % (Auto) Lymph # (Auto) [place] # (Auto) Eos # (Auto) Baso # (Auto) Seg Neutrophils % Seg Neuts % (Manual) 79.0 H Lymphocytes % (Manual) 10.0 L Monocytes % (Manual) Basophils % (Manual) Nucleated RBC % 1.0 H Seg Neutrophils # Seg Neutrophils # Man 14.3 H Lymphocytes # (Manual) Monocytes # (Manual) Eosinophils # (Manual) 0.7 H Basophils # (Manual) PT INR APTT D-Dimer Heparin Anti-Xa Level ABG pH POC ABG pCO2 POC ABG pO2 ABG pO2 ABG HCO3 ABG O2 Saturation ABG Base Excess ABG Hemoglobin 7.7 L ABG Oxyhemoglobin ABG Sodium 130.3 L ABG Potassium 4.6 H ABG Chloride ABG Glucose Oxyhemoglobin Carboxyhemoglobin Sodium 136 L Potassium Chloride 96.0 L Carbon Dioxide BUN 76 H Creatinine 3.6 H Glucose POC Glucose Lactic Acid Calcium 7.4 L Phosphorus Magnesium Ferritin Direct Bilirubin AST ALT Alkaline Phosphatase Lactate Dehydrogenase Total Creatine Kinase C-Reactive Protein Total Protein Albumin Triglycerides Arterial Blood Glucose Arterial Blood Ionized Calcium 4.2 L Urine Creatinine Urine Chloride Vancomycin Trough Coronavirus (PCR) Crossmatch 07/10/20 07/11/20 07/11/20 13:24 04:08 06:52 WBC 26.0 H RBC 2.91 L Hgb 8.2 L Hct 24.8 L MCHC RDW 17.2 H Plt Count Lymph % (Auto) [place] % (Auto) Lymph # (Auto) [place] # (Auto) Eos # (Auto) Baso # (Auto) Seg Neutrophils % Seg Neuts % (Manual) Lymphocytes % (Manual) 1.0 L Monocytes % (Manual) 11.0 H Basophils % (Manual) Nucleated RBC % Seg Neutrophils # Seg Neutrophils # Man 16.9 H Lymphocytes # (Manual) 0.3 L Monocytes # (Manual) 2.9 H Eosinophils # (Manual) 1.0 H Basophils # (Manual) PT INR APTT D-Dimer Heparin Anti-Xa Level ABG pH POC ABG pCO2 POC ABG pO2 ABG pO2 ABG HCO3 ABG O2 Saturation ABG Base Excess ABG Hemoglobin 8.5 L ABG Oxyhemoglobin ABG Sodium 130.6 L ABG Potassium 4.9 H ABG Chloride ABG Glucose 105 H Oxyhemoglobin Carboxyhemoglobin Sodium Potassium Chloride Carbon Dioxide BUN Creatinine Glucose POC Glucose Lactic Acid Calcium Phosphorus Magnesium Ferritin Direct Bilirubin AST ALT Alkaline Phosphatase Lactate Dehydrogenase Total Creatine Kinase C-Reactive Protein Total Protein Albumin Triglycerides Arterial Blood Glucose 105 H Arterial Blood Ionized Calcium 4.1 L Urine Creatinine Urine Chloride Vancomycin Trough Coronavirus (PCR) Crossmatch See Detail 07/11/20 07/11/20 07/11/20 06:52 08:48 11:39 WBC RBC Hgb Hct MCHC RDW Plt Count Lymph % (Auto) [place] % (Auto) Lymph # (Auto) [place] # (Auto) Eos # (Auto) Baso # (Auto) Seg Neutrophils % Seg Neuts % (Manual) Lymphocytes % (Manual) Monocytes % (Manual) Basophils % (Manual) Nucleated RBC % Seg Neutrophils # Seg Neutrophils # Man Lymphocytes # (Manual) Monocytes # (Manual) Eosinophils # (Manual) Basophils # (Manual) PT INR APTT D-Dimer Heparin Anti-Xa Level ABG pH POC ABG pCO2 POC ABG pO2 ABG pO2 ABG HCO3 ABG O2 Saturation ABG Base Excess ABG Hemoglobin ABG Oxyhemoglobin ABG Sodium ABG Potassium ABG Chloride ABG Glucose Oxyhemoglobin Carboxyhemoglobin Sodium 133 L 134 L Potassium 5.3 H Chloride 93.5 L 94.8 L Carbon Dioxide BUN 101 H 99 H Creatinine 4.5 H 4.6 H Glucose 102 H POC Glucose 116 H Lactic Acid Calcium 7.8 L 7.6 L Phosphorus Magnesium Ferritin Direct Bilirubin AST ALT Alkaline Phosphatase Lactate Dehydrogenase Total Creatine Kinase C-Reactive Protein Total Protein Albumin Triglycerides Arterial Blood Glucose Arterial Blood Ionized Calcium Urine Creatinine Urine Chloride Vancomycin Trough Coronavirus (PCR) Crossmatch 07/11/20 07/12/20 07/12/20 17:23 00:04 03:20 WBC RBC Hgb Hct MCHC RDW Plt Count Lymph % (Auto) [place] % (Auto) Lymph # (Auto) [place] # (Auto) Eos # (Auto) Baso # (Auto) Seg Neutrophils % Seg Neuts % (Manual) Lymphocytes % (Manual) Monocytes % (Manual) Basophils % (Manual) Nucleated RBC % Seg Neutrophils # Seg Neutrophils # Man Lymphocytes # (Manual) Monocytes # (Manual) Eosinophils # (Manual) Basophils # (Manual) PT INR APTT D-Dimer Heparin Anti-Xa Level ABG pH POC ABG pCO2 49.1 H POC ABG pO2 130.3 H ABG pO2 ABG HCO3 ABG O2 Saturation ABG Base Excess ABG Hemoglobin 8.7 L ABG Oxyhemoglobin ABG Sodium 135.2 L ABG Potassium 4.7 H ABG Chloride ABG Glucose 128 H Oxyhemoglobin Carboxyhemoglobin Sodium Potassium Chloride Carbon Dioxide BUN Creatinine Glucose POC Glucose 142 H 113 H Lactic Acid Calcium Phosphorus Magnesium Ferritin Direct Bilirubin AST ALT Alkaline Phosphatase Lactate Dehydrogenase Total Creatine Kinase C-Reactive Protein Total Protein Albumin Triglycerides Arterial Blood Glucose 128 H Arterial Blood Ionized Calcium 4.4 L Urine Creatinine Urine Chloride Vancomycin Trough Coronavirus (PCR) Crossmatch 07/12/20 07/12/20 07/12/20 03:40 03:40 04:00 WBC 24.3 H RBC 2.83 L Hgb 8.0 L Hct 24.9 L MCHC RDW 17.7 H Plt Count Lymph % (Auto) 5.6 L [place] % (Auto) 7.4 H Lymph # (Auto) [place] # (Auto) 1.8 H Eos # (Auto) 0.7 H Baso # (Auto) Seg Neutrophils % 83.9 H Seg Neuts % (Manual) Lymphocytes % (Manual) Monocytes % (Manual) Basophils % (Manual) Nucleated RBC % Seg Neutrophils # 20.4 H Seg Neutrophils # Man Lymphocytes # (Manual) Monocytes # (Manual) Eosinophils # (Manual) Basophils # (Manual) PT INR APTT D-Dimer Heparin Anti-Xa Level ABG pH POC ABG pCO2 POC ABG pO2 ABG pO2 ABG HCO3 ABG O2 Saturation ABG Base Excess ABG Hemoglobin ABG Oxyhemoglobin ABG Sodium ABG Potassium ABG Chloride ABG Glucose Oxyhemoglobin Carboxyhemoglobin Sodium 134 L Potassium Chloride 95.5 L Carbon Dioxide BUN 79 H Creatinine 3.7 H Glucose 127 H POC Glucose Lactic Acid Calcium 7.8 L Phosphorus Magnesium Ferritin Direct Bilirubin AST ALT Alkaline Phosphatase Lactate Dehydrogenase Total Creatine Kinase C-Reactive Protein Total Protein Albumin Triglycerides 246 H Arterial Blood Glucose Arterial Blood Ionized Calcium Urine Creatinine Urine Chloride Vancomycin Trough Coronavirus (PCR) Crossmatch 07/12/20 07/12/20 07/12/20 05:48 11:50 17:29 WBC RBC Hgb Hct MCHC RDW Plt Count Lymph % (Auto) [place] % (Auto) Lymph # (Auto) [place] # (Auto) Eos # (Auto) Baso # (Auto) Seg Neutrophils % Seg Neuts % (Manual) Lymphocytes % (Manual) Monocytes % (Manual) Basophils % (Manual) Nucleated RBC % Seg Neutrophils # Seg Neutrophils # Man Lymphocytes # (Manual) Monocytes # (Manual) Eosinophils # (Manual) Basophils # (Manual) PT INR APTT D-Dimer Heparin Anti-Xa Level ABG pH POC ABG pCO2 POC ABG pO2 ABG pO2 ABG HCO3 ABG O2 Saturation ABG Base Excess ABG Hemoglobin ABG Oxyhemoglobin ABG Sodium ABG Potassium ABG Chloride ABG Glucose Oxyhemoglobin Carboxyhemoglobin Sodium Potassium Chloride Carbon Dioxide BUN Creatinine Glucose POC Glucose 136 H 113 H 110 H Lactic Acid Calcium Phosphorus Magnesium Ferritin Direct Bilirubin AST ALT Alkaline Phosphatase Lactate Dehydrogenase Total Creatine Kinase C-Reactive Protein Total Protein Albumin Triglycerides Arterial Blood Glucose Arterial Blood Ionized Calcium Urine Creatinine Urine Chloride Vancomycin Trough Coronavirus (PCR) Crossmatch 07/12/20 07/13/20 07/13/20 23:43 03:11 06:59 WBC RBC Hgb Hct MCHC RDW Plt Count Lymph % (Auto) [place] % (Auto) Lymph # (Auto) [place] # (Auto) Eos # (Auto) Baso # (Auto) Seg Neutrophils % Seg Neuts % (Manual) Lymphocytes % (Manual) Monocytes % (Manual) Basophils % (Manual) Nucleated RBC % Seg Neutrophils # Seg Neutrophils # Man Lymphocytes # (Manual) Monocytes # (Manual) Eosinophils # (Manual) Basophils # (Manual) PT INR APTT D-Dimer Heparin Anti-Xa Level ABG pH POC ABG pCO2 49.0 H POC ABG pO2 69.6 L ABG pO2 ABG HCO3 ABG O2 Saturation ABG Base Excess ABG Hemoglobin 8.5 L ABG Oxyhemoglobin 90.5 L ABG Sodium 133.6 L ABG Potassium 5.1 H ABG Chloride ABG Glucose 104 H Oxyhemoglobin Carboxyhemoglobin Sodium 133 L Potassium 5.7 H Chloride 96.3 L Carbon Dioxide 20 L D BUN 102 H Creatinine 4.4 H Glucose 101 H POC Glucose 120 H Lactic Acid Calcium 7.9 L Phosphorus Magnesium Ferritin Direct Bilirubin AST 61 H ALT 85 H Alkaline Phosphatase 144 H Lactate Dehydrogenase Total Creatine Kinase C-Reactive Protein Total Protein 5.4 L Albumin 2.0 L Triglycerides Arterial Blood Glucose 104 H Arterial Blood Ionized Calcium 4.3 L Urine Creatinine Urine Chloride Vancomycin Trough Coronavirus (PCR) Crossmatch 07/13/20 07/13/20 07/13/20 08:48 12:14 15:12 WBC 27.5 H RBC 3.03 L Hgb 8.7 L Hct 27.0 L MCHC RDW 18.0 H Plt Count Lymph % (Auto) [place] % (Auto) Lymph # (Auto) [place] # (Auto) Eos # (Auto) Baso # (Auto) Seg Neutrophils % Seg Neuts % (Manual) Lymphocytes % (Manual) Monocytes % (Manual) Basophils % (Manual) Nucleated RBC % Seg Neutrophils # Seg Neutrophils # Man Lymphocytes # (Manual) Monocytes # (Manual) Eosinophils # (Manual) Basophils # (Manual) PT INR APTT D-Dimer Heparin Anti-Xa Level ABG pH POC ABG pCO2 POC ABG pO2 ABG pO2 ABG HCO3 ABG O2 Saturation ABG Base Excess ABG Hemoglobin ABG Oxyhemoglobin ABG Sodium ABG Potassium ABG Chloride ABG Glucose Oxyhemoglobin Carboxyhemoglobin Sodium Potassium 5.5 H Chloride Carbon Dioxide BUN 88 H Creatinine 3.8 H Glucose 133 H POC Glucose 134 H Lactic Acid Calcium 7.5 L Phosphorus Magnesium Ferritin Direct Bilirubin AST ALT Alkaline Phosphatase Lactate Dehydrogenase Total Creatine Kinase C-Reactive Protein Total Protein Albumin Triglycerides Arterial Blood Glucose Arterial Blood Ionized Calcium Urine Creatinine Urine Chloride Vancomycin Trough Coronavirus (PCR) Crossmatch 07/13/20 07/13/20 07/13/20 16:46 16:47 18:46 WBC RBC Hgb 7.4 L Hct 22.1 L MCHC RDW Plt Count Lymph % (Auto) [place] % (Auto) Lymph # (Auto) [place] # (Auto) Eos # (Auto) Baso # (Auto) Seg Neutrophils % Seg Neuts % (Manual) Lymphocytes % (Manual) Monocytes % (Manual) Basophils % (Manual) Nucleated RBC % Seg Neutrophils # Seg Neutrophils # Man Lymphocytes # (Manual) Monocytes # (Manual) Eosinophils # (Manual) Basophils # (Manual) PT INR APTT D-Dimer Heparin Anti-Xa Level ABG pH POC ABG pCO2 POC ABG pO2 ABG pO2 ABG HCO3 ABG O2 Saturation ABG Base Excess ABG Hemoglobin ABG Oxyhemoglobin ABG Sodium ABG Potassium ABG Chloride ABG Glucose Oxyhemoglobin Carboxyhemoglobin Sodium Potassium Chloride Carbon Dioxide BUN Creatinine Glucose POC Glucose 118 H Lactic Acid Calcium Phosphorus Magnesium Ferritin Direct Bilirubin AST ALT Alkaline Phosphatase Lactate Dehydrogenase Total Creatine Kinase C-Reactive Protein Total Protein Albumin Triglycerides Arterial Blood Glucose Arterial Blood Ionized Calcium Urine Creatinine Urine Chloride Vancomycin Trough Coronavirus (PCR) Crossmatch See Detail 07/13/20 07/14/20 07/14/20 23:34 04:25 12:21 WBC RBC Hgb Hct MCHC RDW Plt Count Lymph % (Auto) [place] % (Auto) Lymph # (Auto) [place] # (Auto) Eos # (Auto) Baso # (Auto) Seg Neutrophils % Seg Neuts % (Manual) Lymphocytes % (Manual) Monocytes % (Manual) Basophils % (Manual) Nucleated RBC % Seg Neutrophils # Seg Neutrophils # Man Lymphocytes # (Manual) Monocytes # (Manual) Eosinophils # (Manual) Basophils # (Manual) PT INR APTT D-Dimer Heparin Anti-Xa Level ABG pH POC ABG pCO2 POC ABG pO2 ABG pO2 ABG HCO3 ABG O2 Saturation ABG Base Excess ABG Hemoglobin 8.9 L ABG Oxyhemoglobin ABG Sodium 133.1 L ABG Potassium 4.7 H ABG Chloride ABG Glucose 113 H Oxyhemoglobin Carboxyhemoglobin Sodium Potassium Chloride Carbon Dioxide BUN Creatinine Glucose POC Glucose 109 H 109 H Lactic Acid Calcium Phosphorus Magnesium Ferritin Direct Bilirubin AST ALT Alkaline Phosphatase Lactate Dehydrogenase Total Creatine Kinase C-Reactive Protein Total Protein Albumin Triglycerides Arterial Blood Glucose 113 H Arterial Blood Ionized Calcium 4.4 L Urine Creatinine Urine Chloride Vancomycin Trough Coronavirus (PCR) Crossmatch 07/14/20 07/14/20 07/14/20 16:44 16:44 20:20 WBC 30.1 H RBC 2.60 L Hgb 7.4 L 5.6 L* Hct 23.0 L 18.1 L* MCHC RDW 18.0 H Plt Count Lymph % (Auto) [place] % (Auto) Lymph # (Auto) [place] # (Auto) Eos # (Auto) Baso # (Auto) Seg Neutrophils % Seg Neuts % (Manual) 78.0 H Lymphocytes % (Manual) 5.0 L Monocytes % (Manual) Basophils % (Manual) Nucleated RBC % Seg Neutrophils # Seg Neutrophils # Man 23.5 H Lymphocytes # (Manual) Monocytes # (Manual) 0.9 H Eosinophils # (Manual) Basophils # (Manual) PT 15.6 H INR 1.26 H APTT D-Dimer Heparin Anti-Xa Level ABG pH POC ABG pCO2 POC ABG pO2 ABG pO2 ABG HCO3 ABG O2 Saturation ABG Base Excess ABG Hemoglobin ABG Oxyhemoglobin ABG Sodium ABG Potassium ABG Chloride ABG Glucose Oxyhemoglobin Carboxyhemoglobin Sodium Potassium Chloride Carbon Dioxide BUN Creatinine Glucose POC Glucose Lactic Acid Calcium Phosphorus Magnesium Ferritin Direct Bilirubin AST ALT Alkaline Phosphatase Lactate Dehydrogenase Total Creatine Kinase C-Reactive Protein Total Protein Albumin Triglycerides Arterial Blood Glucose Arterial Blood Ionized Calcium Urine Creatinine Urine Chloride Vancomycin Trough Coronavirus (PCR) Crossmatch 07/14/20 07/14/20 07/15/20 21:19 23:45 04:13 WBC RBC Hgb Hct MCHC RDW Plt Count Lymph % (Auto) [place] % (Auto) Lymph # (Auto) [place] # (Auto) Eos # (Auto) Baso # (Auto) Seg Neutrophils % Seg Neuts % (Manual) Lymphocytes % (Manual) Monocytes % (Manual) Basophils % (Manual) Nucleated RBC % Seg Neutrophils # Seg Neutrophils # Man Lymphocytes # (Manual) Monocytes # (Manual) Eosinophils # (Manual) Basophils # (Manual) PT INR APTT D-Dimer Heparin Anti-Xa Level ABG pH POC ABG pCO2 POC ABG pO2 ABG pO2 ABG HCO3 ABG O2 Saturation ABG Base Excess ABG Hemoglobin 5.8 L 6.0 L ABG Oxyhemoglobin 93.8 L ABG Sodium 132.2 L 130.3 L ABG Potassium 5.5 H 5.8 H ABG Chloride ABG Glucose 118 H 122 H Oxyhemoglobin Carboxyhemoglobin Sodium Potassium Chloride Carbon Dioxide BUN Creatinine Glucose POC Glucose 126 H Lactic Acid Calcium Phosphorus Magnesium Ferritin Direct Bilirubin AST ALT Alkaline Phosphatase Lactate Dehydrogenase Total Creatine Kinase C-Reactive Protein Total Protein Albumin Triglycerides Arterial Blood Glucose 118 H 122 H Arterial Blood Ionized Calcium 4.3 L 4.2 L Urine Creatinine Urine Chloride Vancomycin Trough Coronavirus (PCR) Crossmatch 07/15/20 07/15/20 07/15/20 08:21 08:21 08:38 WBC 45.5 H* RBC 2.42 L Hgb 7.1 L Hct 21.5 L MCHC RDW 16.5 H Plt Count Lymph % (Auto) [place] % (Auto) Lymph # (Auto) [place] # (Auto) Eos # (Auto) Baso # (Auto) Seg Neutrophils % Seg Neuts % (Manual) 89.0 H Lymphocytes % (Manual) 7.0 L Monocytes % (Manual) Basophils % (Manual) Nucleated RBC % Seg Neutrophils # Seg Neutrophils # Man 40.5 H Lymphocytes # (Manual) Monocytes # (Manual) 1.8 H Eosinophils # (Manual) Basophils # (Manual) PT 17.6 H INR 1.46 H APTT D-Dimer Heparin Anti-Xa Level ABG pH POC ABG pCO2 POC ABG pO2 ABG pO2 ABG HCO3 ABG O2 Saturation ABG Base Excess ABG Hemoglobin ABG Oxyhemoglobin ABG Sodium ABG Potassium ABG Chloride ABG Glucose Oxyhemoglobin Carboxyhemoglobin Sodium 131 L Potassium 6.0 H Chloride 94.6 L Carbon Dioxide 20 L BUN 116 H Creatinine 4.6 H Glucose 123 H POC Glucose Lactic Acid Calcium 7.6 L Phosphorus Magnesium Ferritin Direct Bilirubin AST ALT Alkaline Phosphatase Lactate Dehydrogenase Total Creatine Kinase C-Reactive Protein Total Protein Albumin Triglycerides Arterial Blood Glucose Arterial Blood Ionized Calcium Urine Creatinine Urine Chloride Vancomycin Trough Coronavirus (PCR) Crossmatch 07/15/20 07/15/20 07/15/20 11:29 17:23 18:52 WBC RBC Hgb Hct MCHC RDW Plt Count Lymph % (Auto) [place] % (Auto) Lymph # (Auto) [place] # (Auto) Eos # (Auto) Baso # (Auto) Seg Neutrophils % Seg Neuts % (Manual) Lymphocytes % (Manual) Monocytes % (Manual) Basophils % (Manual) Nucleated RBC % Seg Neutrophils # Seg Neutrophils # Man Lymphocytes # (Manual) Monocytes # (Manual) Eosinophils # (Manual) Basophils # (Manual) PT INR APTT D-Dimer Heparin Anti-Xa Level ABG pH POC ABG pCO2 POC ABG pO2 ABG pO2 ABG HCO3 ABG O2 Saturation ABG Base Excess ABG Hemoglobin ABG Oxyhemoglobin ABG Sodium ABG Potassium ABG Chloride ABG Glucose Oxyhemoglobin Carboxyhemoglobin Sodium Potassium Chloride 97.9 L Carbon Dioxide BUN 78 H Creatinine 3.1 H Glucose 114 H POC Glucose 181 H 120 H Lactic Acid Calcium 7.3 L Phosphorus Magnesium Ferritin Direct Bilirubin AST ALT Alkaline Phosphatase Lactate Dehydrogenase Total Creatine Kinase C-Reactive Protein Total Protein Albumin Triglycerides Arterial Blood Glucose Arterial Blood Ionized Calcium Urine Creatinine Urine Chloride Vancomycin Trough Coronavirus (PCR) Crossmatch 07/15/20 07/16/20 07/16/20 18:52 01:10 03:38 WBC RBC Hgb 9.9 L 8.5 L Hct 29.8 L D 24.7 L MCHC RDW Plt Count Lymph % (Auto) [place] % (Auto) Lymph # (Auto) [place] # (Auto) Eos # (Auto) Baso # (Auto) Seg Neutrophils % Seg Neuts % (Manual) Lymphocytes % (Manual) Monocytes % (Manual) Basophils % (Manual) Nucleated RBC % Seg Neutrophils # Seg Neutrophils # Man Lymphocytes # (Manual) Monocytes # (Manual) Eosinophils # (Manual) Basophils # (Manual) PT INR APTT D-Dimer Heparin Anti-Xa Level ABG pH 7.314 L POC ABG pCO2 48.5 H POC ABG pO2 58.9 L ABG pO2 ABG HCO3 ABG O2 Saturation ABG Base Excess ABG Hemoglobin 8.7 L ABG Oxyhemoglobin 86.7 L ABG Sodium 132.7 L ABG Potassium 5.2 H ABG Chloride ABG Glucose 99 H Oxyhemoglobin Carboxyhemoglobin Sodium Potassium Chloride Carbon Dioxide BUN Creatinine Glucose POC Glucose Lactic Acid Calcium Phosphorus Magnesium Ferritin Direct Bilirubin AST ALT Alkaline Phosphatase Lactate Dehydrogenase Total Creatine Kinase C-Reactive Protein Total Protein Albumin Triglycerides Arterial Blood Glucose 99 H Arterial Blood Ionized Calcium 3.9 L Urine Creatinine Urine Chloride Vancomycin Trough Coronavirus (PCR) Crossmatch 07/16/20 07/16/20 07/16/20 04:28 04:28 07:29 WBC 48.9 H* RBC 2.86 L Hgb 8.6 L 7.9 L Hct 25.4 L 24.4 L MCHC RDW 15.6 H Plt Count Lymph % (Auto) [place] % (Auto) Lymph # (Auto) [place] # (Auto) Eos # (Auto) Baso # (Auto) Seg Neutrophils % Seg Neuts % (Manual) Lymphocytes % (Manual) Monocytes % (Manual) Basophils % (Manual) Nucleated RBC % Seg Neutrophils # Seg Neutrophils # Man Lymphocytes # (Manual) Monocytes # (Manual) Eosinophils # (Manual) Basophils # (Manual) PT INR APTT D-Dimer Heparin Anti-Xa Level ABG pH POC ABG pCO2 POC ABG pO2 ABG pO2 ABG HCO3 ABG O2 Saturation ABG Base Excess ABG Hemoglobin ABG Oxyhemoglobin ABG Sodium ABG Potassium ABG Chloride ABG Glucose Oxyhemoglobin Carboxyhemoglobin Sodium 136 L Potassium 5.4 H Chloride 95.0 L Carbon Dioxide BUN 85 H Creatinine 3.4 H Glucose 66 L POC Glucose Lactic Acid Calcium 6.8 L Phosphorus Magnesium Ferritin Direct Bilirubin AST ALT Alkaline Phosphatase Lactate Dehydrogenase Total Creatine Kinase C-Reactive Protein Total Protein Albumin Triglycerides Arterial Blood Glucose Arterial Blood Ionized Calcium Urine Creatinine Urine Chloride Vancomycin Trough Coronavirus (PCR) Crossmatch 07/16/20 07/16/20 07/16/20 11:52 18:06 18:08 WBC RBC Hgb 7.4 L Hct 22.5 L MCHC RDW Plt Count Lymph % (Auto) [place] % (Auto) Lymph # (Auto) [place] # (Auto) Eos # (Auto) Baso # (Auto) Seg Neutrophils % Seg Neuts % (Manual) Lymphocytes % (Manual) Monocytes % (Manual) Basophils % (Manual) Nucleated RBC % Seg Neutrophils # Seg Neutrophils # Man Lymphocytes # (Manual) Monocytes # (Manual) Eosinophils # (Manual) Basophils # (Manual) PT INR APTT D-Dimer Heparin Anti-Xa Level ABG pH POC ABG pCO2 POC ABG pO2 ABG pO2 ABG HCO3 ABG O2 Saturation ABG Base Excess ABG Hemoglobin ABG Oxyhemoglobin ABG Sodium ABG Potassium ABG Chloride ABG Glucose Oxyhemoglobin Carboxyhemoglobin Sodium Potassium Chloride Carbon Dioxide BUN Creatinine Glucose POC Glucose 124 H 108 H Lactic Acid Calcium Phosphorus Magnesium Ferritin Direct Bilirubin AST ALT Alkaline Phosphatase Lactate Dehydrogenase Total Creatine Kinase C-Reactive Protein Total Protein Albumin Triglycerides Arterial Blood Glucose Arterial Blood Ionized Calcium Urine Creatinine Urine Chloride Vancomycin Trough Coronavirus (PCR) Crossmatch 07/17/20 07/17/20 07/17/20 03:27 15:25 15:25 WBC 46.2 H* RBC 2.05 L Hgb 6.1 L Hct 18.4 L* MCHC RDW 15.6 H Plt Count Lymph % (Auto) [place] % (Auto) Lymph # (Auto) [place] # (Auto) Eos # (Auto) Baso # (Auto) Seg Neutrophils % Seg Neuts % (Manual) 87.0 H Lymphocytes % (Manual) 3.0 L Monocytes % (Manual) Basophils % (Manual) Nucleated RBC % Seg Neutrophils # Seg Neutrophils # Man 40.2 H Lymphocytes # (Manual) Monocytes # (Manual) 3.2 H Eosinophils # (Manual) Basophils # (Manual) PT 18.2 H INR 1.52 H APTT D-Dimer Heparin Anti-Xa Level ABG pH 7.313 L POC ABG pCO2 50.9 H POC ABG pO2 ABG pO2 ABG HCO3 ABG O2 Saturation ABG Base Excess ABG Hemoglobin 7.5 L ABG Oxyhemoglobin ABG Sodium 131.8 L ABG Potassium 4.6 H ABG Chloride ABG Glucose 105 H Oxyhemoglobin Carboxyhemoglobin Sodium Potassium Chloride Carbon Dioxide BUN Creatinine Glucose POC Glucose Lactic Acid Calcium Phosphorus Magnesium Ferritin Direct Bilirubin AST ALT Alkaline Phosphatase Lactate Dehydrogenase Total Creatine Kinase C-Reactive Protein Total Protein Albumin Triglycerides Arterial Blood Glucose 105 H Arterial Blood Ionized Calcium 3.9 L Urine Creatinine Urine Chloride Vancomycin Trough Coronavirus (PCR) Crossmatch 07/17/20 07/18/20 07/18/20 Unknown 03:10 05:06 WBC 37.9 H RBC 2.91 L Hgb 8.5 L Hct 25.6 L D MCHC RDW Plt Count Lymph % (Auto) [place] % (Auto) Lymph # (Auto) [place] # (Auto) Eos # (Auto) Baso # (Auto) Seg Neutrophils % Seg Neuts % (Manual) Lymphocytes % (Manual) Monocytes % (Manual) Basophils % (Manual) Nucleated RBC % Seg Neutrophils # Seg Neutrophils # Man Lymphocytes # (Manual) Monocytes # (Manual) Eosinophils # (Manual) Basophils # (Manual) PT INR APTT D-Dimer Heparin Anti-Xa Level ABG pH POC ABG pCO2 POC ABG pO2 114.9 H ABG pO2 ABG HCO3 ABG O2 Saturation ABG Base Excess ABG Hemoglobin 8.6 L ABG Oxyhemoglobin ABG Sodium 130.6 L ABG Potassium 4.9 H ABG Chloride ABG Glucose Oxyhemoglobin Carboxyhemoglobin Sodium Potassium Chloride Carbon Dioxide BUN Creatinine Glucose POC Glucose Lactic Acid Calcium Phosphorus Magnesium Ferritin Direct Bilirubin AST ALT Alkaline Phosphatase Lactate Dehydrogenase Total Creatine Kinase C-Reactive Protein Total Protein Albumin Triglycerides Arterial Blood Glucose Arterial Blood Ionized Calcium 3.8 L Urine Creatinine Urine Chloride Vancomycin Trough Coronavirus (PCR) Crossmatch See Detail 07/18/20 07/19/20 07/19/20 05:06 00:06 03:57 WBC RBC Hgb Hct MCHC RDW Plt Count Lymph % (Auto) [place] % (Auto) Lymph # (Auto) [place] # (Auto) Eos # (Auto) Baso # (Auto) Seg Neutrophils % Seg Neuts % (Manual) Lymphocytes % (Manual) Monocytes % (Manual) Basophils % (Manual) Nucleated RBC % Seg Neutrophils # Seg Neutrophils # Man Lymphocytes # (Manual) Monocytes # (Manual) Eosinophils # (Manual) Basophils # (Manual) PT INR APTT D-Dimer Heparin Anti-Xa Level ABG pH POC ABG pCO2 POC ABG pO2 ABG pO2 ABG HCO3 ABG O2 Saturation ABG Base Excess ABG Hemoglobin 8.6 L ABG Oxyhemoglobin ABG Sodium 130.4 L ABG Potassium ABG Chloride ABG Glucose Oxyhemoglobin Carboxyhemoglobin Sodium Potassium 5.4 H Chloride Carbon Dioxide BUN 79 H Creatinine 3.2 H Glucose POC Glucose 69 L Lactic Acid Calcium 6.9 L Phosphorus Magnesium Ferritin Direct Bilirubin AST ALT 58 H Alkaline Phosphatase Lactate Dehydrogenase Total Creatine Kinase C-Reactive Protein Total Protein 4.3 L D Albumin 1.7 L Triglycerides 306 H Arterial Blood Glucose Arterial Blood Ionized Calcium 3.9 L Urine Creatinine Urine Chloride Vancomycin Trough Coronavirus (PCR) Crossmatch 07/19/20 07/19/20 07/19/20 05:22 09:15 09:15 WBC 32.5 H RBC 2.57 L Hgb 7.8 L Hct 22.8 L MCHC RDW 15.3 H Plt Count Lymph % (Auto) [place] % (Auto) Lymph # (Auto) [place] # (Auto) Eos # (Auto) Baso # (Auto) Seg Neutrophils % Seg Neuts % (Manual) Lymphocytes % (Manual) Monocytes % (Manual) Basophils % (Manual) Nucleated RBC % Seg Neutrophils # Seg Neutrophils # Man Lymphocytes # (Manual) Monocytes # (Manual) Eosinophils # (Manual) Basophils # (Manual) PT INR APTT D-Dimer Heparin Anti-Xa Level ABG pH POC ABG pCO2 POC ABG pO2 ABG pO2 ABG HCO3 ABG O2 Saturation ABG Base Excess ABG Hemoglobin ABG Oxyhemoglobin ABG Sodium ABG Potassium ABG Chloride ABG Glucose Oxyhemoglobin Carboxyhemoglobin Sodium 135 L Potassium Chloride 96.3 L Carbon Dioxide BUN 61 H Creatinine 2.8 H Glucose POC Glucose 64 L Lactic Acid Calcium 6.8 L Phosphorus Magnesium Ferritin Direct Bilirubin AST 54 H ALT 65 H Alkaline Phosphatase Lactate Dehydrogenase Total Creatine Kinase C-Reactive Protein Total Protein 4.3 L Albumin 1.8 L Triglycerides Arterial Blood Glucose Arterial Blood Ionized Calcium Urine Creatinine Urine Chloride Vancomycin Trough Coronavirus (PCR) Crossmatch 07/20/20 07/20/20 07/20/20 05:20 06:00 06:07 WBC 28.1 H RBC 2.53 L Hgb 7.7 L Hct 22.7 L MCHC RDW 15.5 H Plt Count Lymph % (Auto) [place] % (Auto) Lymph # (Auto) [place] # (Auto) Eos # (Auto) Baso # (Auto) Seg Neutrophils % Seg Neuts % (Manual) Lymphocytes % (Manual) Monocytes % (Manual) Basophils % (Manual) Nucleated RBC % Seg Neutrophils # Seg Neutrophils # Man Lymphocytes # (Manual) Monocytes # (Manual) Eosinophils # (Manual) Basophils # (Manual) PT INR APTT D-Dimer Heparin Anti-Xa Level ABG pH POC ABG pCO2 POC ABG pO2 ABG pO2 ABG HCO3 ABG O2 Saturation ABG Base Excess ABG Hemoglobin 6.3 L ABG Oxyhemoglobin ABG Sodium 130.0 L ABG Potassium ABG Chloride ABG Glucose 114 H Oxyhemoglobin Carboxyhemoglobin Sodium Potassium Chloride Carbon Dioxide BUN Creatinine Glucose POC Glucose 110 H Lactic Acid Calcium Phosphorus Magnesium Ferritin Direct Bilirubin AST ALT Alkaline Phosphatase Lactate Dehydrogenase Total Creatine Kinase C-Reactive Protein Total Protein Albumin Triglycerides Arterial Blood Glucose 114 H Arterial Blood Ionized Calcium 3.9 L Urine Creatinine Urine Chloride Vancomycin Trough Coronavirus (PCR) Crossmatch 07/20/20 07/21/20 07/21/20 17:19 05:02 05:40 WBC 32.9 H RBC 2.78 L Hgb 8.5 L Hct 25.2 L MCHC RDW 15.7 H Plt Count 74 L Lymph % (Auto) [place] % (Auto) Lymph # (Auto) [place] # (Auto) Eos # (Auto) Baso # (Auto) Seg Neutrophils % Seg Neuts % (Manual) Lymphocytes % (Manual) Monocytes % (Manual) Basophils % (Manual) Nucleated RBC % Seg Neutrophils # Seg Neutrophils # Man Lymphocytes # (Manual) Monocytes # (Manual) Eosinophils # (Manual) Basophils # (Manual) PT INR APTT D-Dimer Heparin Anti-Xa Level ABG pH POC ABG pCO2 POC ABG pO2 73.2 L ABG pO2 ABG HCO3 ABG O2 Saturation ABG Base Excess ABG Hemoglobin 9.1 L ABG Oxyhemoglobin 93.4 L ABG Sodium ABG Potassium 3.1 L ABG Chloride ABG Glucose 112 H Oxyhemoglobin Carboxyhemoglobin Sodium Potassium Chloride Carbon Dioxide BUN Creatinine Glucose POC Glucose 137 H Lactic Acid Calcium Phosphorus Magnesium Ferritin Direct Bilirubin AST ALT Alkaline Phosphatase Lactate Dehydrogenase Total Creatine Kinase C-Reactive Protein Total Protein Albumin Triglycerides Arterial Blood Glucose 112 H Arterial Blood Ionized Calcium Urine Creatinine Urine Chloride Vancomycin Trough Coronavirus (PCR) Crossmatch 07/22/20 07/22/20 07/22/20 04:11 16:00 16:00 WBC 38.7 H RBC 2.72 L Hgb 8.1 L Hct 24.5 L MCHC RDW 16.1 H Plt Count Lymph % (Auto) [place] % (Auto) Lymph # (Auto) [place] # (Auto) Eos # (Auto) Baso # (Auto) Seg Neutrophils % Seg Neuts % (Manual) Lymphocytes % (Manual) Monocytes % (Manual) Basophils % (Manual) Nucleated RBC % Seg Neutrophils # Seg Neutrophils # Man Lymphocytes # (Manual) Monocytes # (Manual) Eosinophils # (Manual) Basophils # (Manual) PT INR APTT D-Dimer Heparin Anti-Xa Level ABG pH POC ABG pCO2 POC ABG pO2 67.7 L ABG pO2 ABG HCO3 ABG O2 Saturation ABG Base Excess ABG Hemoglobin 7.4 L ABG Oxyhemoglobin 91.7 L ABG Sodium ABG Potassium 2.9 L ABG Chloride ABG Glucose 105 H Oxyhemoglobin Carboxyhemoglobin Sodium Potassium Chloride Carbon Dioxide BUN Creatinine Glucose POC Glucose Lactic Acid Calcium Phosphorus Magnesium Ferritin Direct Bilirubin AST ALT Alkaline Phosphatase Lactate Dehydrogenase Total Creatine Kinase C-Reactive Protein Total Protein Albumin Triglycerides 197 H Arterial Blood Glucose 105 H Arterial Blood Ionized Calcium Urine Creatinine Urine Chloride Vancomycin Trough Coronavirus (PCR) Crossmatch 07/23/20 07/23/20 07/23/20 04:56 11:49 Unknown WBC RBC Hgb Hct MCHC RDW Plt Count Lymph % (Auto) [place] % (Auto) Lymph # (Auto) [place] # (Auto) Eos # (Auto) Baso # (Auto) Seg Neutrophils % Seg Neuts % (Manual) Lymphocytes % (Manual) Monocytes % (Manual) Basophils % (Manual) Nucleated RBC % Seg Neutrophils # Seg Neutrophils # Man Lymphocytes # (Manual) Monocytes # (Manual) Eosinophils # (Manual) Basophils # (Manual) PT INR APTT D-Dimer Heparin Anti-Xa Level ABG pH POC ABG pCO2 POC ABG pO2 75.7 L ABG pO2 ABG HCO3 ABG O2 Saturation ABG Base Excess ABG Hemoglobin 9.3 L ABG Oxyhemoglobin ABG Sodium ABG Potassium 3.1 L ABG Chloride 108.0 H ABG Glucose 101 H Oxyhemoglobin Carboxyhemoglobin Sodium Potassium 3.1 L D Chloride Carbon Dioxide BUN 36 H Creatinine 2.1 H Glucose 103 H POC Glucose 107 H Lactic Acid Calcium Phosphorus Magnesium Ferritin Direct Bilirubin AST ALT Alkaline Phosphatase Lactate Dehydrogenase Total Creatine Kinase C-Reactive Protein Total Protein Albumin Triglycerides Arterial Blood Glucose 101 H Arterial Blood Ionized Calcium Urine Creatinine Urine Chloride Vancomycin Trough Coronavirus (PCR) Crossmatch 07/24/20 07/24/20 07/24/20 06:40 06:40 20:38 WBC 31.4 H RBC 2.37 L Hgb 7.2 L Hct 21.7 L MCHC RDW 17.0 H Plt Count Lymph % (Auto) [place] % (Auto) Lymph # (Auto) [place] # (Auto) Eos # (Auto) Baso # (Auto) Seg Neutrophils % Seg Neuts % (Manual) 85.0 H Lymphocytes % (Manual) 6.0 L Monocytes % (Manual) Basophils % (Manual) Nucleated RBC % Seg Neutrophils # Seg Neutrophils # Man 26.7 H Lymphocytes # (Manual) Monocytes # (Manual) 0.9 H Eosinophils # (Manual) Basophils # (Manual) 0.3 H PT INR APTT D-Dimer Heparin Anti-Xa Level ABG pH POC ABG pCO2 POC ABG pO2 ABG pO2 ABG HCO3 ABG O2 Saturation ABG Base Excess ABG Hemoglobin ABG Oxyhemoglobin ABG Sodium ABG Potassium ABG Chloride ABG Glucose Oxyhemoglobin Carboxyhemoglobin Sodium Potassium 3.1 L Chloride Carbon Dioxide BUN 46 H Creatinine 2.5 H Glucose 109 H POC Glucose Lactic Acid Calcium Phosphorus Magnesium Ferritin Direct Bilirubin AST 46 H ALT 74 H Alkaline Phosphatase 180 H Lactate Dehydrogenase Total Creatine Kinase C-Reactive Protein Total Protein 4.6 L Albumin 2.0 L Triglycerides Arterial Blood Glucose Arterial Blood Ionized Calcium Urine Creatinine Urine Chloride Vancomycin Trough Coronavirus (PCR) Crossmatch See Detail 07/24/20 07/25/20 07/25/20 20:40 05:39 05:39 WBC 26.6 H RBC 2.79 L Hgb 8.5 L Hct 25.6 L MCHC RDW 16.1 H Plt Count Lymph % (Auto) [place] % (Auto) Lymph # (Auto) [place] # (Auto) Eos # (Auto) Baso # (Auto) Seg Neutrophils % Seg Neuts % (Manual) 72.0 H Lymphocytes % (Manual) 2.0 L Monocytes % (Manual) Basophils % (Manual) 3.0 H Nucleated RBC % 1.0 H Seg Neutrophils # Seg Neutrophils # Man 19.2 H Lymphocytes # (Manual) 0.5 L Monocytes # (Manual) 1.6 H Eosinophils # (Manual) 0.5 H Basophils # (Manual) 0.8 H PT 15.3 H INR 1.21 H APTT D-Dimer Heparin Anti-Xa Level ABG pH POC ABG pCO2 POC ABG pO2 ABG pO2 ABG HCO3 ABG O2 Saturation ABG Base Excess ABG Hemoglobin ABG Oxyhemoglobin ABG Sodium ABG Potassium ABG Chloride ABG Glucose Oxyhemoglobin Carboxyhemoglobin Sodium Potassium Chloride Carbon Dioxide BUN 55 H Creatinine 2.9 H Glucose POC Glucose Lactic Acid Calcium Phosphorus Magnesium Ferritin Direct Bilirubin AST ALT Alkaline Phosphatase Lactate Dehydrogenase Total Creatine Kinase C-Reactive Protein Total Protein Albumin Triglycerides Arterial Blood Glucose Arterial Blood Ionized Calcium Urine Creatinine Urine Chloride Vancomycin Trough Coronavirus (PCR) Crossmatch 07/25/20 07/26/20 07/26/20 17:22 08:46 08:46 WBC RBC Hgb Hct MCHC RDW Plt Count Lymph % (Auto) [place] % (Auto) Lymph # (Auto) [place] # (Auto) Eos # (Auto) Baso # (Auto) Seg Neutrophils % Seg Neuts % (Manual) Lymphocytes % (Manual) Monocytes % (Manual) Basophils % (Manual) Nucleated RBC % Seg Neutrophils # Seg Neutrophils # Man Lymphocytes # (Manual) Monocytes # (Manual) Eosinophils # (Manual) Basophils # (Manual) PT INR APTT D-Dimer Heparin Anti-Xa Level ABG pH POC ABG pCO2 POC ABG pO2 ABG pO2 ABG HCO3 ABG O2 Saturation ABG Base Excess ABG Hemoglobin ABG Oxyhemoglobin ABG Sodium ABG Potassium ABG Chloride ABG Glucose Oxyhemoglobin Carboxyhemoglobin Sodium Potassium Chloride Carbon Dioxide 31 H BUN 37 H Creatinine 2.2 H Glucose POC Glucose 65 L Lactic Acid Calcium 8.2 L Phosphorus Magnesium Ferritin Direct Bilirubin AST ALT Alkaline Phosphatase Lactate Dehydrogenase Total Creatine Kinase C-Reactive Protein Total Protein Albumin Triglycerides 166 H Arterial Blood Glucose Arterial Blood Ionized Calcium Urine Creatinine Urine Chloride Vancomycin Trough Coronavirus (PCR) Crossmatch 07/26/20 07/27/20 07/27/20 Unknown 04:00 07:09 WBC 24.6 H 27.1 H RBC 2.68 L 2.74 L Hgb 8.3 L 8.3 L Hct 24.7 L 25.3 L MCHC RDW 16.3 H 17.2 H Plt Count Lymph % (Auto) [place] % (Auto) Lymph # (Auto) [place] # (Auto) Eos # (Auto) Baso # (Auto) Seg Neutrophils % Seg Neuts % (Manual) 82.0 H 85.0 H Lymphocytes % (Manual) 5.0 L 4.0 L Monocytes % (Manual) 8.0 H Basophils % (Manual) Nucleated RBC % Seg Neutrophils # Seg Neutrophils # Man 20.2 H 23.0 H Lymphocytes # (Manual) 1.1 L Monocytes # (Manual) 2.0 H 1.6 H Eosinophils # (Manual) 0.7 H 1.1 H Basophils # (Manual) 0.3 H PT INR APTT D-Dimer Heparin Anti-Xa Level ABG pH POC ABG pCO2 POC ABG pO2 ABG pO2 ABG HCO3 ABG O2 Saturation ABG Base Excess ABG Hemoglobin ABG Oxyhemoglobin ABG Sodium ABG Potassium ABG Chloride ABG Glucose Oxyhemoglobin Carboxyhemoglobin Sodium Potassium Chloride Carbon Dioxide BUN Creatinine Glucose POC Glucose 115 H Lactic Acid Calcium Phosphorus Magnesium Ferritin Direct Bilirubin AST ALT Alkaline Phosphatase Lactate Dehydrogenase Total Creatine Kinase C-Reactive Protein Total Protein Albumin Triglycerides Arterial Blood Glucose Arterial Blood Ionized Calcium Urine Creatinine Urine Chloride Vancomycin Trough Coronavirus (PCR) Crossmatch 07/27/20 07/27/20 07/28/20 21:45 22:36 00:05 WBC RBC Hgb 6.4 L Hct 19.8 L* MCHC RDW Plt Count Lymph % (Auto) [place] % (Auto) Lymph # (Auto) [place] # (Auto) Eos # (Auto) Baso # (Auto) Seg Neutrophils % Seg Neuts % (Manual) Lymphocytes % (Manual) Monocytes % (Manual) Basophils % (Manual) Nucleated RBC % Seg Neutrophils # Seg Neutrophils # Man Lymphocytes # (Manual) Monocytes # (Manual) Eosinophils # (Manual) Basophils # (Manual) PT INR APTT D-Dimer Heparin Anti-Xa Level ABG pH POC ABG pCO2 POC ABG pO2 ABG pO2 ABG HCO3 ABG O2 Saturation ABG Base Excess ABG Hemoglobin ABG Oxyhemoglobin ABG Sodium ABG Potassium ABG Chloride ABG Glucose Oxyhemoglobin Carboxyhemoglobin Sodium Potassium Chloride Carbon Dioxide BUN Creatinine Glucose POC Glucose 124 H Lactic Acid Calcium Phosphorus Magnesium Ferritin Direct Bilirubin AST ALT Alkaline Phosphatase Lactate Dehydrogenase Total Creatine Kinase C-Reactive Protein Total Protein Albumin Triglycerides Arterial Blood Glucose Arterial Blood Ionized Calcium Urine Creatinine Urine Chloride Vancomycin Trough Coronavirus (PCR) Crossmatch See Detail 07/28/20 07/28/20 07/28/20 04:00 06:27 12:24 WBC 30.3 H RBC 2.35 L Hgb 7.2 L Hct 21.2 L MCHC RDW 16.8 H Plt Count Lymph % (Auto) [place] % (Auto) Lymph # (Auto) [place] # (Auto) Eos # (Auto) Baso # (Auto) Seg Neutrophils % Seg Neuts % (Manual) Lymphocytes % (Manual) Monocytes % (Manual) Basophils % (Manual) Nucleated RBC % Seg Neutrophils # Seg Neutrophils # Man Lymphocytes # (Manual) Monocytes # (Manual) Eosinophils # (Manual) Basophils # (Manual) PT INR APTT D-Dimer Heparin Anti-Xa Level ABG pH POC ABG pCO2 POC ABG pO2 ABG pO2 ABG HCO3 ABG O2 Saturation ABG Base Excess ABG Hemoglobin ABG Oxyhemoglobin ABG Sodium ABG Potassium ABG Chloride ABG Glucose Oxyhemoglobin Carboxyhemoglobin Sodium Potassium Chloride Carbon Dioxide BUN Creatinine Glucose POC Glucose 107 H 110 H Lactic Acid Calcium Phosphorus Magnesium Ferritin Direct Bilirubin AST ALT Alkaline Phosphatase Lactate Dehydrogenase Total Creatine Kinase C-Reactive Protein Total Protein Albumin Triglycerides Arterial Blood Glucose Arterial Blood Ionized Calcium Urine Creatinine Urine Chloride Vancomycin Trough Coronavirus (PCR) Crossmatch 07/28/20 07/28/20 07/28/20 14:31 18:19 23:33 WBC RBC Hgb Hct MCHC RDW Plt Count Lymph % (Auto) [place] % (Auto) Lymph # (Auto) [place] # (Auto) Eos # (Auto) Baso # (Auto) Seg Neutrophils % Seg Neuts % (Manual) Lymphocytes % (Manual) Monocytes % (Manual) Basophils % (Manual) Nucleated RBC % Seg Neutrophils # Seg Neutrophils # Man Lymphocytes # (Manual) Monocytes # (Manual) Eosinophils # (Manual) Basophils # (Manual) PT INR APTT D-Dimer Heparin Anti-Xa Level ABG pH 7.333 L POC ABG pCO2 POC ABG pO2 ABG pO2 68.0 L ABG HCO3 ABG O2 Saturation 92.4 L ABG Base Excess -2.7 L ABG Hemoglobin 9.0 L ABG Oxyhemoglobin ABG Sodium ABG Potassium ABG Chloride ABG Glucose Oxyhemoglobin 89.9 L Carboxyhemoglobin Sodium Potassium Chloride Carbon Dioxide BUN Creatinine Glucose POC Glucose 117 H 113 H Lactic Acid Calcium Phosphorus Magnesium Ferritin Direct Bilirubin AST ALT Alkaline Phosphatase Lactate Dehydrogenase Total Creatine Kinase C-Reactive Protein Total Protein Albumin Triglycerides Arterial Blood Glucose Arterial Blood Ionized Calcium Urine Creatinine Urine Chloride Vancomycin Trough Coronavirus (PCR) Crossmatch 07/28/20 07/29/20 07/29/20 Unknown 04:39 04:39 WBC 38.6 H RBC 2.15 L Hgb 6.6 L Hct 19.9 L* MCHC RDW 17.5 H Plt Count Lymph % (Auto) 3.2 L [place] % (Auto) Lymph # (Auto) [place] # (Auto) 2.7 H Eos # (Auto) 0.8 H Baso # (Auto) 0.4 H Seg Neutrophils % 86.5 H Seg Neuts % (Manual) Lymphocytes % (Manual) Monocytes % (Manual) Basophils % (Manual) Nucleated RBC % Seg Neutrophils # 33.4 H Seg Neutrophils # Man Lymphocytes # (Manual) Monocytes # (Manual) Eosinophils # (Manual) Basophils # (Manual) PT INR APTT D-Dimer Heparin Anti-Xa Level ABG pH POC ABG pCO2 POC ABG pO2 ABG pO2 ABG HCO3 ABG O2 Saturation ABG Base Excess ABG Hemoglobin ABG Oxyhemoglobin ABG Sodium ABG Potassium ABG Chloride ABG Glucose Oxyhemoglobin Carboxyhemoglobin Sodium 135 L Potassium 3.2 L 3.1 L Chloride Carbon Dioxide BUN 35 H 42 H Creatinine 2.3 H 2.5 H Glucose 123 H 109 H POC Glucose Lactic Acid Calcium 7.2 L 7.5 L Phosphorus Magnesium Ferritin Direct Bilirubin AST ALT Alkaline Phosphatase Lactate Dehydrogenase Total Creatine Kinase C-Reactive Protein Total Protein Albumin Triglycerides Arterial Blood Glucose Arterial Blood Ionized Calcium Urine Creatinine Urine Chloride Vancomycin Trough Coronavirus (PCR) Crossmatch 07/29/20 07/29/20 07/29/20 05:36 11:51 17:42 WBC RBC Hgb Hct MCHC RDW Plt Count Lymph % (Auto) [place] % (Auto) Lymph # (Auto) [place] # (Auto) Eos # (Auto) Baso # (Auto) Seg Neutrophils % Seg Neuts % (Manual) Lymphocytes % (Manual) Monocytes % (Manual) Basophils % (Manual) Nucleated RBC % Seg Neutrophils # Seg Neutrophils # Man Lymphocytes # (Manual) Monocytes # (Manual) Eosinophils # (Manual) Basophils # (Manual) PT INR APTT D-Dimer Heparin Anti-Xa Level ABG pH POC ABG pCO2 POC ABG pO2 ABG pO2 ABG HCO3 ABG O2 Saturation ABG Base Excess ABG Hemoglobin ABG Oxyhemoglobin ABG Sodium ABG Potassium ABG Chloride ABG Glucose Oxyhemoglobin Carboxyhemoglobin Sodium Potassium Chloride Carbon Dioxide BUN Creatinine Glucose POC Glucose 111 H 127 H 117 H Lactic Acid Calcium Phosphorus Magnesium Ferritin Direct Bilirubin AST ALT Alkaline Phosphatase Lactate Dehydrogenase Total Creatine Kinase C-Reactive Protein Total Protein Albumin Triglycerides Arterial Blood Glucose Arterial Blood Ionized Calcium Urine Creatinine Urine Chloride Vancomycin Trough Coronavirus (PCR) Crossmatch 07/29/20 07/30/20 07/30/20 23:07 17:32 23:13 WBC RBC Hgb Hct MCHC RDW Plt Count Lymph % (Auto) [place] % (Auto) Lymph # (Auto) [place] # (Auto) Eos # (Auto) Baso # (Auto) Seg Neutrophils % Seg Neuts % (Manual) Lymphocytes % (Manual) Monocytes % (Manual) Basophils % (Manual) Nucleated RBC % Seg Neutrophils # Seg Neutrophils # Man Lymphocytes # (Manual) Monocytes # (Manual) Eosinophils # (Manual) Basophils # (Manual) PT INR APTT D-Dimer Heparin Anti-Xa Level ABG pH POC ABG pCO2 POC ABG pO2 ABG pO2 ABG HCO3 ABG O2 Saturation ABG Base Excess ABG Hemoglobin ABG Oxyhemoglobin ABG Sodium ABG Potassium ABG Chloride ABG Glucose Oxyhemoglobin Carboxyhemoglobin Sodium Potassium Chloride Carbon Dioxide BUN Creatinine Glucose POC Glucose 116 H 107 H Lactic Acid Calcium Phosphorus Magnesium Ferritin Direct Bilirubin AST ALT Alkaline Phosphatase Lactate Dehydrogenase Total Creatine Kinase C-Reactive Protein Total Protein Albumin Triglycerides Arterial Blood Glucose Arterial Blood Ionized Calcium Urine Creatinine Urine Chloride Vancomycin Trough Coronavirus (PCR) Crossmatch See Detail 07/30/20 07/31/20 07/31/20 Unknown 05:28 09:00 WBC 30.8 H RBC 2.39 L Hgb 7.3 L Hct 21.9 L MCHC RDW 16.7 H Plt Count Lymph % (Auto) [place] % (Auto) Lymph # (Auto) [place] # (Auto) Eos # (Auto) Baso # (Auto) Seg Neutrophils % Seg Neuts % (Manual) 85.0 H Lymphocytes % (Manual) 1.0 L Monocytes % (Manual) Basophils % (Manual) Nucleated RBC % 1.0 H Seg Neutrophils # Seg Neutrophils # Man 26.2 H Lymphocytes # (Manual) 0.3 L Monocytes # (Manual) 1.8 H Eosinophils # (Manual) Basophils # (Manual) PT INR APTT D-Dimer Heparin Anti-Xa Level ABG pH 7.241 L POC ABG pCO2 52.8 H POC ABG pO2 63.3 L ABG pO2 ABG HCO3 ABG O2 Saturation ABG Base Excess ABG Hemoglobin 7.6 L ABG Oxyhemoglobin ABG Sodium 133.6 L ABG Potassium ABG Chloride ABG Glucose 114 H Oxyhemoglobin Carboxyhemoglobin Sodium Potassium Chloride Carbon Dioxide BUN Creatinine Glucose POC Glucose Lactic Acid Calcium Phosphorus Magnesium Ferritin Direct Bilirubin AST ALT Alkaline Phosphatase Lactate Dehydrogenase Total Creatine Kinase C-Reactive Protein Total Protein Albumin Triglycerides 184 H Arterial Blood Glucose 114 H Arterial Blood Ionized Calcium 4.4 L Urine Creatinine Urine Chloride Vancomycin Trough Coronavirus (PCR) Crossmatch 07/31/20 07/31/20 07/31/20 09:00 12:00 16:17 WBC RBC Hgb Hct MCHC RDW Plt Count Lymph % (Auto) [place] % (Auto) Lymph # (Auto) [place] # (Auto) Eos # (Auto) Baso # (Auto) Seg Neutrophils % Seg Neuts % (Manual) Lymphocytes % (Manual) Monocytes % (Manual) Basophils % (Manual) Nucleated RBC % Seg Neutrophils # Seg Neutrophils # Man Lymphocytes # (Manual) Monocytes # (Manual) Eosinophils # (Manual) Basophils # (Manual) PT INR APTT D-Dimer Heparin Anti-Xa Level ABG pH POC ABG pCO2 POC ABG pO2 148.6 H ABG pO2 ABG HCO3 ABG O2 Saturation ABG Base Excess ABG Hemoglobin 6.7 L ABG Oxyhemoglobin ABG Sodium 132.3 L ABG Potassium ABG Chloride ABG Glucose 115 H Oxyhemoglobin Carboxyhemoglobin Sodium 136 L Potassium Chloride Carbon Dioxide BUN 46 H Creatinine 2.4 H Glucose POC Glucose 106 H Lactic Acid Calcium 7.7 L Phosphorus Magnesium Ferritin Direct Bilirubin AST ALT Alkaline Phosphatase Lactate Dehydrogenase Total Creatine Kinase C-Reactive Protein Total Protein Albumin Triglycerides Arterial Blood Glucose 115 H Arterial Blood Ionized Calcium 4.2 L Urine Creatinine Urine Chloride Vancomycin Trough Coronavirus (PCR) Crossmatch 07/31/20 08/01/20 08/01/20 17:05 04:48 05:00 WBC RBC Hgb Hct MCHC RDW Plt Count Lymph % (Auto) [place] % (Auto) Lymph # (Auto) [place] # (Auto) Eos # (Auto) Baso # (Auto) Seg Neutrophils % Seg Neuts % (Manual) Lymphocytes % (Manual) Monocytes % (Manual) Basophils % (Manual) Nucleated RBC % Seg Neutrophils # Seg Neutrophils # Man Lymphocytes # (Manual) Monocytes # (Manual) Eosinophils # (Manual) Basophils # (Manual) PT INR APTT D-Dimer Heparin Anti-Xa Level ABG pH POC ABG pCO2 POC ABG pO2 111.5 H ABG pO2 ABG HCO3 ABG O2 Saturation ABG Base Excess ABG Hemoglobin 7.1 L ABG Oxyhemoglobin ABG Sodium 131.4 L ABG Potassium ABG Chloride ABG Glucose 107 H Oxyhemoglobin Carboxyhemoglobin Sodium 135 L Potassium Chloride Carbon Dioxide BUN 56 H Creatinine 2.6 H Glucose 117 H POC Glucose 119 H Lactic Acid Calcium 7.8 L Phosphorus Magnesium Ferritin Direct Bilirubin AST ALT Alkaline Phosphatase Lactate Dehydrogenase Total Creatine Kinase C-Reactive Protein Total Protein Albumin Triglycerides Arterial Blood Glucose 107 H Arterial Blood Ionized Calcium 4.3 L Urine Creatinine Urine Chloride Vancomycin Trough Coronavirus (PCR) Crossmatch 08/01/20 08/01/20 05:00 11:53 WBC 22.0 H RBC 2.26 L Hgb 6.8 L Hct 20.5 L MCHC RDW 16.6 H Plt Count Lymph % (Auto) [place] % (Auto) Lymph # (Auto) [place] # (Auto) Eos # (Auto) Baso # (Auto) Seg Neutrophils % Seg Neuts % (Manual) Lymphocytes % (Manual) Monocytes % (Manual) Basophils % (Manual) Nucleated RBC % Seg Neutrophils # Seg Neutrophils # Man Lymphocytes # (Manual) Monocytes # (Manual) Eosinophils # (Manual) Basophils # (Manual) PT INR APTT D-Dimer Heparin Anti-Xa Level ABG pH POC ABG pCO2 POC ABG pO2 ABG pO2 ABG HCO3 ABG O2 Saturation ABG Base Excess ABG Hemoglobin ABG Oxyhemoglobin ABG Sodium ABG Potassium ABG Chloride ABG Glucose Oxyhemoglobin Carboxyhemoglobin Sodium Potassium Chloride Carbon Dioxide BUN Creatinine Glucose POC Glucose 107 H Lactic Acid Calcium Phosphorus Magnesium Ferritin Direct Bilirubin AST ALT Alkaline Phosphatase Lactate Dehydrogenase Total Creatine Kinase C-Reactive Protein Total Protein Albumin Triglycerides Arterial Blood Glucose Arterial Blood Ionized Calcium Urine Creatinine Urine Chloride Vancomycin Trough Coronavirus (PCR) Crossmatch Chest x-ray: pending Allied health notes reviewed: nursing
--- NOTE | 2020-08-01 16:04 | Progress Note ---
Assessment and Plan Assessment and plan: -S/p dexamethasone and remdesivir therapy, contact/droplet isolation, vitamin C/vitamin D/zinc, anticoagulation per protocol, trend inflammatory markers -Wean mechanical ventilation as tolerated, VAP bundle -HD per nephrology -Transfuse for hemaglobin less than 7, s/p 10 units PRBC during stay -Nephrology, ID, heme-onc, GI , CCM, cardiology consulted,appreciate recommendations -BCR-ABL mutation testing pending -Per infectious disease: s/pampicillin. Plan to exchange out lines if pressor requirement changes -Monitor leukocytosis and fevers -If patient blood cultures were to turn positive he will need an exchange over line for his vascular access per vascular surgery. -Hold systemic anticoagulation in setting of severe anemia -Amiodarone for rate control -s/p debridement by Dr. Kirk, GUILLE consulted, WC per nursing, 07/27 debridement repeated -07/22 COVID-19 PCR negative, discontinued contact/droplet isolation DVT prophylaxis: GI prophylaxis, heparin subcu, SCDs to bilateral LE while in bed Disposition: ICU, ?placement ?trach/peg ?Ltach The high probability of a clinically significant, sudden or life threatening deterioration of the [multi] system(s) required my full and direct attention, intervention and personal management. The aggregate critical care time was [35] minutes. This time is in addition to time spent performing reported procedures but includes the following: [x] Data Review and interpretation [x] Patient assessment and monitoring of vital signs [x] Documentation [x] Medication orders and management History Interval history: 59-year-old white male who was admitted for pneumonia secondary to Covid with associated respiratory failure and sepsis. Severe septic shock COVID-19 pneumonia Sacral wound, stage 4 Leukemoid reaction Acute metabolic encephalopathy Acute hypoxic respiratory failure Enterococcus bacteremia Pneumomediastinum Acute kidney injury likely secondary to acute tubular necrosis which progressed to hemodialysis SVT/proximal atrial fibrillation Elevated LFTs Anemia likely due to severe sepsis had declining renal function Morbid obesity Leukocytosis Hypoalbuminemia Sacral decubitus: s/p debridements 06/18: Patient got intubated overnight. Patient was placed on BiPAP to maintain oxygenation with 100% FiO2 but apparently he found to take off his argueta which made his oxygen saturation go down at 60s/50s and patient was found altered mental status. Code met was called immediately. Patient was transferred to ICU and intubated, patient currently on 2 pressors, intubated with 100% FiO2, renal function noted to be decline, nephrology consulted. Discussed with [place] physician Dr. Thompson and requested call back on Saturday. Poor prognosis, continue to monitor with aggressive supportive care. Also called family/ to update clinical status. 06/19: Repeat COVID test was positive. cont cefepime, remdesivir per ID recommendation. follow inflammatory markers, cbc, bmp. placed on heparin drip for atrial fib 06/20: Remains on mechanical ventilation, on 2 pressors, on heparin drip. discussed with and daughter by phone. Renal function declining. cont supportive care for now. 06/21: Renal function cont to decline, urine outpt sig decreased. started on lasix 80mg BID, plan to follow urine output, if no improvement patient need to start on HD. called and daughter today. updated all clinical details 06/22: Renal function continues to decline with uremia and hyperkalemia. Will need to proceed with hemodialysis. Nephrology discussed with the family and they agrees for the hemodialysis. Patient remains on pressor support and mechan ical ventilation. Vas-Cath placed today by vascular started on hemodialysis today. 06/23: 2nd round of HD today, remains on 2 pressors. per RN not tolerating TF, has no record of BM since 06/18. start on stool softner. follow cbc/bmp. updated family ( and daughter) by phone -all question answered to best of my knowledge and to their satisfaction. Patient remains critically ill with a very poor prognosis. 06/24: Continue supportive care, Very poor prognosis, [employer] to discuss with family in am due to the futility of the condition. 06/25/2020 continue supportive care very poor prognosis 06/26/2020 continue supportive care very poor prognosis family updated 06/27/2020 continue supportive care and weaning if possible 06/28/2020 continue supportive care, talk with at length 06/29: Resumed care. K level persistently high. give one dose of bicarbonate, plan for HD today, recheck k after HD. updated family by phone 06/30: updated family by phone. Patient remains on amiodarone drip and vasopressin. Getting HD at the bedside. Tolerating tube feeding at low rate. 07/01: Hb dropped to 6.4 today, transfuse one unit PRBC. patient is off pressor today, remains on amioderone. cont to monitor 07/02: Called patient and updated clinical details. Patient remains critically ill, still intubated. Patient's oxygen requirement and PEEP pressure has went down. Continue weaning protocol per critical care recommendation. Patient remains off pressor. Continue to wean off from amiodarone and plan to rate control with p.o. medications. Tolerating tube feeding. H&H stable today. Order for stool for occult blood. Monitor H&H and BMP. Continue to follow clinically 07/03: discussed with [facility] physician today. Patient back on 100percent Fio2 since last night. planned for emergent Hd today. spiked fever, start IV Cefepime + Vancomycin renally dosed. Restarted Levophed today, remains on amiodarone drip. Patient family was updated by critical care attending today. 07/04: Patient has hemodialysis yesterday and also plan for today for volume overload and pulmonary edema. Patient currently on 80% FiO2. Remains on Levophed and amiodarone. Hemoglobin dropped to 6.7 without any evidence of active bleeding. LFTs remain stable. Repeat Covid test on 06/30 and 07/03 remains positive. Will transfuse another unit of packed RBC today. Called family for update -explained family that patient is critically ill with very poor prognosis. 07/05: Patient on 70% FiO2 with PEEP of 14. h/h stable after transfusion. hyperkalemia improved, cont sodiumbicarbonate pill with TF. follow BMP. off levophed today, remains on amioderone. poor prognosis. 07/06: Patient remains on amiodarone drip, maintaining BP without any pressor. FiO2 requirement trended down to 60% with PEEP of 14. Continue to follow clinically. Plan to wean off amiodarone drip as tolerated. Wean off from sedation as tolerated. Updated family. Patient remains critically ill with poor prognosis. 07/07: Called family for update. Off amiodarone drip today, patient also off pressor. FiO2 requirement trended up again to 80-100%. Continue to provide supportive care, monitor clinically. Having difficulty to wean off from the vent support. Patient is persistently positive for COVID-19 and COVID-19 antibody is nonreactive. Patient remains critically ill with very poor prognosis. 07/08: Continue supportive care. [employer] branch or department chief librarian and art consultant input noted. Prognosis remains guarded to poor. Management per team. Critical care time 35-minute 07/09/20 patient is tachycardic. Heart rate 121. Hemoglobin 7.3. Patient is having hemodialysis. Continue supportive care. Patient having difficulty to wean off from the vent support. Prognosis is poor. Nephrology and cardiology follow-up. Recheck CBC BMP in the morning. Continue current management. 07/10/20 patient seen and examined, remains on full ventilator patient is doing better. Patient is off pressor. heart rate 123. Hemoglobin 6.8 and hematocrit 20.7. WBC is 18.1. Continue supportive care. Patient having difficulty to wean off from the vent support. We will started on Zosyn 4.5 g IV every 8 hours. Will transfuse 1 unit of packed red blood cell. Prognosis is poor. Nephrology and cardiology follow up. Recheck CBC BMP in the morning 07/11: remains off vasopressor, h/h appropriately responded to 1 unit PRBC. HD today. Remain on MV with fiO2 at 70%. peep 10. No acute events reported overnight. 32: Patient remains in atrial fibrillation on the hospital monitor, vasopressor support with Levophed and vasopressin, sedated with fentanyl and propofol. Vent settings: CMV 500/25/14/0.60. Patient remains hypercarbic on ABG 07/13: Patient remains on vasopressin, fentanyl and propofol with rectal tube in place. This morning some examination patient was on assist control 25/500/14/0.60. Patient received hemodialysis today. No acute events reported overnight. 07/14: Remains on vasopressin, fentanyl and propofol with tube in place. Rectal tube in place with noted blood clots, GI consulted, on 07/13 H/H dropped from 8.7/27 to 7.4/22 and anticoagulation discontinued. This morning I spoke to his who still wishes for the patient to remain a full code despite update with continued use of vasopressor (vasopressin), current ventilatory support (CMV 500/25/14/0.60) and recent development of rectal bleeding. Patient's family requests an update from [facility] and GI. Cardio changed amio from PO to IV given elevated HR 07/15: Today the patient received a total of 5 units of PRBC and is still having bleeding through his rectal tube. CTA abdomen/pelvis is pending, patient remains on Levophed, fentanyl, propofol, vasopressin and received hemodialysis today. He was also hyperkalemic today to 6 and he received insulin and D50. Extensive conversation with family conducted by CCM and hospitalist and his and 2 daughters did visit him today at the bedside. 07/16: Continues with full ventilatory support. FMS still inplace with some loose bloody stool. Still on multiple pressors, Bilateral swollen and generalized anascara. Monitor H/H and transfuse as needed. Monitor K level. Discussed with family at bedside yesterday. 07/17: Continue supportive care, transfusion blood possible in am with HD, continue abx, very poor prognosis, blood pressure still labile. Discussed with nurse at bedside 07/18: CTA abdomen/pelvis completed, antibiotics changed to Zosyn per infectious disease, remains on mechanical ventilation 450/25/12/0.55 continue amiodarone drip for 24 more hours, blood culture grew Enterococcus. Remains sedated on propofol and fentanyl. Not on vasopressor support today 07/19: No acute events reported overnight, remains sedated with fentanyl and propofol and off vasopressor therapy today. 07/20: s/p debridement with surgery today, remains on fentanyl, propofol, Levophed and current vent settings 450/25/10/0.45. Patient will be transferred to a bariatric bed once available. 07/21: Continue current management, wean ventilator as tolerated, IV antibiotics deescalated to ampicillin. Per infectious disease no need to exchange/remove lines unless repeat blood cultures turn positive. The time my examination patient was sedated on fentanyl and propofol and remains off vasopressor support. 07/22: At the time my examination patient is sedated on fentanyl and propofol and remains off vasopressor support, repeat COVID-19 PCR negative. Patient remains on ampicillin. H/H remained stable and GI has signed off. Mechanical ventilation weaning as tolerated. 07/23. He remains sedated on fentanyl and propofol. On mechanical ventilation. On levophed. repeat COVID-19 PCR negative. Patient remains on ampicillin. H/H remained stable and GI has signed off. 07/24. He remains sedated and on mechanical ventilation. On levophed. repeat COVID-19 PCR negative. On ampicillin. ID recs appreciated. Labs reviewed 07/25: Patient remains sedated on fentanyl and Diprivan and remains on mechanical ventilation. Repeat CXR and still has leukocytosis. Patient is n.p.o. for trach and PEG with surgery. 07/26: Remains sedated on fentanyl and propofol. Remains on vasopressor support with Levophed. Current vent settings CMV 450/20/8/0.40. Patient is scheduled for PEG/trach with surgery. No acute events reported overnight. 07/27: Debridement with surgery to sacrum:, Activity restarted, remains sedated on propofol/fentanyl and Precedex support with Levophed. Current vent settings CMV 450/20/8/135. S/p trach/PEG with surgery 07/26. Patient remains afebrile however leukocytosis slightly worse today and he is still on his ampicillin. Patient was hypoglycemic overnight. 07/28: Patient remains sedated on propofol and fentanyl. Continue amiodarone drip for rate control. Patient be started on pressors of Levophed last evening. Patient currently with PSV/CPAP FiO2 35% PEEP of 8 and pressure support of 20. Wean mechanical ventilation as tolerated, VAP bundle. Continue hemodialysis per nephrology recommendations. Continue antibiotics per ID recommendations. Hold systemic anticoagulation in the setting of severe anemia. Patient with status post debridement on 07/27. 07/29: Continue sedation per pulmonary. Amiodarone drip for rate control. Continue vasopressors to maintain MAP > 65. Mechanical ventilation currently AC mode rate of 20 tidal volume 450, FiO2 35% and PEEP of 8. Wean mechanical ventilation as tolerated, VAP bundle. Continue hemodialysis per nephrology recommendations. Continue antibiotics per ID recommendations until 08/01/2020. Repeat blood cultures have been negative. Hold systemic anticoagulation in the setting of severe anemia. 07/30: Patient currently with AC mode rate of 14, tidal volume 450, FiO2 40% and PEEP of 8. Wean mechanical ventilation as tolerated, VAP bundle. Continue hemodialysis per nephrology recommendations. Continue antibiotics per ID recommendations. Hold systemic anticoagulation in the setting of severe anemia. 07/31: Patient currently with AC mode ventilation rate 30, tidal volume 450 FiO2 100%, pressure support 16 and PEEP of 8. Wean mechanical ventilation as tolerated, VAP bundle. Continue hemodialysis per nephrology recommendations. Continue antibiotics per ID recommendations. Patient currently on ampicillin. Hold systemic anticoagulation in the setting of severe anemia. Continue restraints for safety. Continue pressors to maintain MAP > 65. Awaiting family decision to discharge to LTAC. 08/01: If patient develops worsening sepsis ID would like to initiate vancomycin and cefepime, and [facility] would like to add vasopressin. The time my examination patient is on assist control 450/30/8/.60 with an ABG of 7.3/42//21 with a base excess of -4. Patient remains sedated on propofol and fentanyl with vasopressor support with Levophed. No acute events reported overnight. Per vascular surgery if patient's blood cultures are positive will consider a Vas- Cath exchange on a clean wire with ChloraPrep during the exchange and attempt to decrease bioburden. No acute events reported overnight. Patient's H/H today was 6.8/20.5 and he will receive 1 unit PRBC and we will recheck CBC in the a.m. and transfuse as needed. Hospitalist Physical - Physical exam Narrative exam: General appearance: Present: mild distress, well-nourished - EENT ENT: ulcerations - Respiratory Respiratory effort: normal Respiratory: bilateral: diminished - Cardiovascular Rhythm: regular Heart Sounds: Present: S1 & S2. Absent: systolic murmur, diastolic murmur - Extremities Extremities: no ischemia, pulses intact, pulses symmetrical, normal color Peripheral Pulses: within normal limits - Abdominal General gastrointestinal: soft, non-tender, non-distended, normal bowel sounds - Integumentary Integumentary: Present: dry - Psychiatric Psychiatric: other (sedated) - Neurologic Neurologic: other (sedated) - Constitutional Vitals: Temp Pulse Resp BP Pulse Ox 98.9 F 111 H 20 108/56 95 08/01/20 12:55 08/01/20 16:00 08/01/20 14:30 08/01/20 16:00 08/01/20 15:02 General appearance: Present: no acute distress, well-nourished, other (Patient remains on mechanical ventilation) HEART Score - HEART Score Troponin: Troponin T < 0.010 ng/mL (0.00-0.029) 06/17/20 12:33 Results - Labs CBC & Chem 7: 08/01/20 05:00 08/01/20 05:00 Labs: Laboratory Last Values WBC 22.0 K/mm3 (4.5-11.0) H 08/01/20 05:00 RBC 2.26 M/mm3 (3.65-5.03) L 08/01/20 05:00 Hgb 6.8 gm/dl (11.8-15.2) L 08/01/20 05:00 Hct 20.5 % (35.5-45.6) L 08/01/20 05:00 MCV 91 fl (84-94) 08/01/20 05:00 MCH 30 pg (28-32) 08/01/20 05:00 MCHC 33 % (32-34) 08/01/20 05:00 RDW 16.6 % (13.2-15.2) H 08/01/20 05:00 Plt Count 222 K/mm3 (140-440) 08/01/20 05:00 Lymph % (Auto) 3.2 % (13.4-35.0) L 07/29/20 04:39 [place] % (Auto) 7.0 % (0.0-7.3) 07/29/20 04:39 Eos % (Auto) 2.1 % (0.0-4.3) 07/29/20 04:39 Baso % (Auto) 1.2 % (0.0-1.8) 07/29/20 04:39 Lymph # (Auto) 1.2 K/mm3 (1.2-5.4) 07/29/20 04:39 [place] # (Auto) 2.7 K/mm3 (0.0-0.8) H 07/29/20 04:39 Eos # (Auto) 0.8 K/mm3 (0.0-0.4) H 07/29/20 04:39 Baso # (Auto) 0.4 K/mm3 (0.0-0.1) H 07/29/20 04:39 Add Manual Diff Complete 07/31/20 09:00 Total Counted 100 07/31/20 09:00 Seg Neutrophils % 86.5 % (40.0-70.0) H 07/29/20 04:39 Seg Neuts % (Manual) 85.0 % (40.0-70.0) H 07/31/20 09:00 Band Neutrophils % 8.0 % 07/31/20 09:00 Lymphocytes % (Manual) 1.0 % (13.4-35.0) L 07/31/20 09:00 Reactive Lymphs % (Man) 1.0 % 06/23/20 04:00 Monocytes % (Manual) 6.0 % (0.0-7.3) 07/31/20 09:00 Eosinophils % (Manual) 4.0 % (0.0-4.3) 07/27/20 04:00 Basophils % (Manual) 1.0 % (0.0-1.8) 07/27/20 04:00 Metamyelocytes % 1.0 % 07/26/20 Unknown Myelocytes % 1.0 % 07/25/20 05:39 Promyelocytes % 0 % 07/17/20 15:25 Nucleated RBC % 1.0 % (0.0-0.9) H 07/31/20 09:00 Seg Neutrophils # 33.4 K/mm3 (1.8-7.7) H 07/29/20 04:39 Seg Neutrophils # Man 26.2 K/mm3 (1.8-7.7) H 07/31/20 09:00 Band Neutrophils # 2.5 K/mm3 07/31/20 09:00 Lymphocytes # (Manual) 0.3 K/mm3 (1.2-5.4) L 07/31/20 09:00 Abs React Lymphs (Man) 0.0 K/mm3 07/31/20 09:00 Monocytes # (Manual) 1.8 K/mm3 (0.0-0.8) H 07/31/20 09:00 Eosinophils # (Manual) 0.0 K/mm3 (0.0-0.4) 07/31/20 09:00 Basophils # (Manual) 0.0 K/mm3 (0.0-0.1) 07/31/20 09:00 Metamyelocytes # 0.0 K/mm3 07/31/20 09:00 Myelocytes # 0.0 K/mm3 07/31/20 09:00 Promyelocytes # 0.0 K/mm3 07/31/20 09:00 Blast Cells # 0.0 K/mm3 07/31/20 09:00 Pathologist Review 07/17/20 15:25 WBC Morphology Not Reportable 07/31/20 09:00 Hypersegmented Neuts Not Reportable 07/31/20 09:00 Hyposegmented Neuts Not Reportable 07/31/20 09:00 Hypogranular Neuts Not Reportable 07/31/20 09:00 Smudge Cells Not Reportable 07/31/20 09:00 Toxic Granulation Not Reportable 07/31/20 09:00 Toxic Vacuolation Not Reportable 07/31/20 09:00 Dohle Bodies Not Reportable 07/31/20 09:00 Pelger-Huet Anomaly Not Reportable 07/31/20 09:00 Carlito Rods Not Reportable 07/31/20 09:00 Platelet Estimate Consistent w auto 07/31/20 09:00 Clumped Platelets Not Reportable 07/31/20 09:00 Plt Clumps, EDTA Not Reportable 07/31/20 09:00 Large Platelets Not Reportable 07/31/20 09:00 Giant Platelets Not Reportable 07/31/20 09:00 Platelet Satelliting Not Reportable 07/31/20 09:00 Plt Morphology Comment Not Reportable 07/31/20 09:00 RBC Morphology Not Reportable 07/31/20 09:00 Dimorphic RBCs Not Reportable 07/31/20 09:00 Polychromasia Not Reportable 07/31/20 09:00 Hypochromasia Not Reportable 07/31/20 09:00 Poikilocytosis Not Reportable 07/31/20 09:00 Anisocytosis 1+ 07/31/20 09:00 Microcytosis Not Reportable 07/31/20 09:00 Macrocytosis Not Reportable 07/31/20 09:00 Spherocytes Not Reportable 07/31/20 09:00 Pappenheimer Bodies Not Reportable 07/31/20 09:00 Sickle Cells Not Reportable 07/31/20 09:00 Target Cells Not Reportable 07/31/20 09:00 Tear Drop Cells Not Reportable 07/31/20 09:00 Ovalocytes Not Reportable 07/31/20 09:00 Stomatocytes Few 07/27/20 04:00 Helmet Cells Not Reportable 07/31/20 09:00 Brothers-Weippe Bodies Not Reportable 07/31/20 09:00 [place] Rings Not Reportable 07/31/20 09:00 Livier Cells Not Reportable 07/31/20 09:00 Bite Cells Not Reportable 07/31/20 09:00 Crenated Cell Not Reportable 07/31/20 09:00 Elliptocytes Not Reportable 07/31/20 09:00 Acanthocytes (Spur) Not Reportable 07/31/20 09:00 Rouleaux Not Reportable 07/31/20 09:00 Hemoglobin C Crystals Not Reportable 07/31/20 09:00 Schistocytes Not Reportable 07/31/20 09:00 Malaria parasites Not Reportable 07/31/20 09:00 Victoriano Bodies Not Reportable 07/31/20 09:00 Hem Pathologist Commnt No 07/31/20 09:00 PT 15.3 Sec. (12.2-14.9) H 07/24/20 20:40 INR 1.21 (0.87-1.13) H 07/24/20 20:40 APTT 36.1 Sec. (24.2-36.6) 07/24/20 20:40 Fibrinogen 419 mg/dl (211-480) 07/15/20 08:21 D-Dimer 6608.00 ng/mlDDU (0-234) H 07/03/20 14:50 Heparin Anti-Xa Level < 0.10 U.I./ml (0.3-0.7) L 06/26/20 01:30 ABG pH 7.330 (7.320-7.450) 08/01/20 04:48 POC ABG pCO2 42.1 mmHg (32.0-48.0) 08/01/20 04:48 ABG pCO2 44.4 mm Hg 07/28/20 14:31 POC ABG pO2 111.5 mmHg (83-108) H 08/01/20 04:48 ABG pO2 68.0 mm Hg (80.0-90.0) L 07/28/20 14:31 POC ABG HCO3 21.7 08/01/20 04:48 ABG HCO3 23.1 mmol/L (20.0-26.0) 07/28/20 14:31 ABG O2 Saturation 98.4 (0-100) 08/01/20 04:48 ABG O2 Content 11.4 (0.0-44) 07/28/20 14:31 POC ABG Base Excess -3.9 08/01/20 04:48 ABG Base Excess -2.7 mmol/L (-2.0-3.0) L 07/28/20 14:31 ABG Hemoglobin 7.1 (12.0-17.5) L 08/01/20 04:48 ABG Oxyhemoglobin 97.6 (94-98) 07/31/20 16:17 ABG Carboxyhemoglobin 2.2 % (0.0-5.0) 07/28/20 14:31 ABG Methemoglobin 0.3 (0.0-1.5) 07/31/20 16:17 ABG Sodium 131.4 mmol/L (136.0-145.0) L 08/01/20 04:48 ABG Potassium 3.7 mmol/L (3.40-4.50) 08/01/20 04:48 ABG Chloride 101.0 mmol/L (98-107) 08/01/20 04:48 ABG Glucose 107 mg/dL (65-95) H 08/01/20 04:48 Oxyhemoglobin 89.9 % (95.0-99.0) L 07/28/20 14:31 Carboxyhemoglobin 1.4 (0.5-1.5) 07/31/20 16:17 FiO2 35 % 07/28/20 14:31 FiO2 % 60 08/01/20 04:48 Sodium 135 mmol/L (137-145) L 08/01/20 05:00 Potassium 4.0 mmol/L (3.6-5.0) 08/01/20 05:00 Chloride 99.0 mmol/L (98-107) 08/01/20 05:00 Carbon Dioxide 23 mmol/L (22-30) 08/01/20 05:00 Anion Gap 17 mmol/L 08/01/20 05:00 BUN 56 mg/dL (9-20) H 08/01/20 05:00 Creatinine 2.6 mg/dL (0.8-1.3) H 08/01/20 05:00 Estimated GFR 30 ml/min 08/01/20 05:00 BUN/Creatinine Ratio 22 % 08/01/20 05:00 Glucose 117 mg/dL (75-100) H 08/01/20 05:00 POC Glucose 107 mg/dL (70-105) H 08/01/20 11:53 Lactic Acid 0.90 mmol/L (0.7-2.0) 07/23/20 Unknown Calcium 7.8 mg/dL (8.4-10.2) L 08/01/20 05:00 Phosphorus 9.40 mg/dL (2.5-4.5) H 06/30/20 03:50 Magnesium 2.70 mg/dL (1.7-2.3) H 06/18/20 20:33 Ferritin 1171.0 ng/mL (30.0-300.0) H 07/03/20 14:50 Total Bilirubin 0.20 mg/dL (0.1-1.2) 07/24/20 06:40 Direct Bilirubin 0.5 mg/dL (0-0.2) H 07/05/20 08:21 Indirect Bilirubin 0.1 mg/dL 07/05/20 08:21 AST 46 units/L (5-40) H 07/24/20 06:40 ALT 74 units/L (7-56) H 07/24/20 06:40 Alkaline Phosphatase 180 units/L (35-129) H 07/24/20 06:40 Lactate Dehydrogenase 525 units/L (91-180) H 07/03/20 14:50 Total Creatine Kinase 618 units/L (55-170) H 06/29/20 Unknown Troponin T < 0.010 ng/mL (0.00-0.029) 06/17/20 12:33 C-Reactive Protein 31.50 mg/dL (0.00-1.30) H 07/03/20 14:50 Total Protein 4.6 g/dL (6.3-8.2) L 07/24/20 06:40 Albumin 2.0 g/dL (3.9-5) L 07/24/20 06:40 Albumin/Globulin Ratio 0.8 % 07/24/20 06:40 Triglycerides 184 mg/dL (2-149) H 07/30/20 Unknown Procalcitonin 6.05 ng/mL (<0.15) 07/13/20 06:59 Arterial Blood Glucose 107 mg/dL (65-95) H 08/01/20 04:48 Arterial Blood Ionized Calcium 4.3 mg/dL (4.6-5.3) L 08/01/20 04:48 Urine Color Yellow (Yellow) 06/17/20 15:57 Urine Turbidity Clear (Clear) 06/17/20 15:57 Urine pH 6.0 (5.0-7.0) 06/17/20 15:57 Ur Specific [place] 1.019 (1.003-1.030) 06/17/20 15:57 Urine Protein 30 mg/dl mg/dL (Negative) 06/17/20 15:57 Urine Glucose (UA) Neg mg/dL (Negative) 06/17/20 15:57 Urine Ketones Neg mg/dL (Negative) 06/17/20 15:57 Urine Blood Sm (Negative) 06/17/20 15:57 Urine Nitrite Neg (Negative) 06/17/20 15:57 Ur Reducing Substances Not Reportable 06/17/20 15:57 Urine Bilirubin Neg (Negative) 06/17/20 15:57 Urine Ictotest Not Reportable 06/17/20 15:57 Urine Urobilinogen < 2.0 mg/dL (<2.0) 06/17/20 15:57 Ur Leukocyte Esterase Neg (Negative) 06/17/20 15:57 Urine WBC (Auto) 1.0 /HPF (0.0-6.0) 06/17/20 15:57 Urine RBC (Auto) 2.0 /HPF (0.0-6.0) 06/17/20 15:57 Urine Mucus Few /HPF 06/17/20 15:57 Urine Creatinine 192.4 mg/dL (0.1-20.0) H 06/18/20 15:00 Urine Sodium 28 mmol/L 06/18/20 15:00 Urine Chloride 31.1 mmolL (110-250) L 06/18/20 15:00 Nasal Screen MRSA (PCR) Negative (Negative) 06/19/20 10:38 Vancomycin Trough 22.7 ug/mL (5.0-20.0) H 06/20/20 08:25 Random Vancomycin 13.5 ug/mL (0-40.0) 07/16/20 07:17 Coronavirus (PCR) Negative (Negative) 07/22/20 Unknown Hepatitis A IgM Ab Non-reactive (NonReactive) 06/22/20 17:00 Hep Bs Antigen Non-reactive (Negative) 06/22/20 17:00 Hep B Core IgM Ab Non-reactive (NonReactive) 06/22/20 17:00 Hepatitis C Antibody Non-reactive (NonReactive) 06/22/20 17:00 SARS-CoV-2 IgG Ab Nonreactive (NonReactive) 07/04/20 05:20 Blood Type A POSITIVE 07/30/20 23:13 Antibody Screen Negative 07/30/20 23:13 Crossmatch See Detail 07/30/20 23:13 Microbiology: Microbiology 08/01/20 08:15 Tracheal Aspirate Sputum Culture - Preliminary 07/31/20 16:16 Peripheral/Venous Blood Culture - Preliminary Culture in Progress 07/31/20 16:15 Peripheral/Venous Blood Culture - Preliminary Culture in Progress - Diagnostic Impressions Diagnostic Impressions: Echocardiogram 06/29/20 06:00 Transthoracic Echocardiogram Indication: A-fib BP: 105/47 HR: 99 Conclusions *The study is technically very difficult and limited due to poor acoustic windows. *Global left ventricular wall motion and contractility are within normal limits. *The estimated ejection fraction is 55-60%. *There is no pericardial effusion. Findings Procedure Info: The study quality is technically difficult. The study is technically limited due to poor acoustic windows. Left Ventricle: Global left ventricular wall motion and contractility are within normal limits. Global left ventricular systolic function is normal. The estimated ejection fraction is 55-60%. Left Atrium: The left atrium is not well visualized. Right Ventricle: The right ventricle is not well visualized. Right Atrium: The right atrium is not well visualized. Aortic Valve: The aortic valve is not well visualized. Mitral Valve: The mitral valve is not well visualized. Tricuspid Valve: The tricuspid valve is not well visualized. Pulmonic Valve: The pulmonic valve is not well visualized. Pericardium: There is no pericardial effusion. Venous: There is no change in the dimension of the inferior vena cava with respiration consistent with markedly increased right atrial pressure. Newell/IV: Voiding Method Incontinent Active Medications - Current Medications Current Medications: Generic Name Dose Route Start Last Admin Trade Name Freq PRN Reason Stop Dose Admin Acetaminophen 650 mg 06/17/20 14:17 07/31/20 02:45 Acetaminophen 325 Mg Tab PO 650 mg Q4H PRN Administration Pain MILD(1-3)/Fever >100.5/ROBERTS Albuterol 2.5 mg 07/19/20 12:15 Albuterol 2.5 Mg/3 Ml Nebu IH Q6HRT PRN Shortness Of Breath Alteplase, Recombinant 2 mg 07/27/20 18:40 Alteplase 2 Mg Inj IV PAM PRN LINE FLUSH Amiodarone HCl 200 mg 07/19/20 14:00 08/01/20 09:26 Amiodarone 200 Mg Tab PO 200 mg BID CONNOR Administration Lipase/Protease/Amylase 1 each 06/19/20 12:15 Lipase 10,500/Protease 25,000/Amylase 43,750 (Units) Dr Cap FEEDTUBE PRN PRN For Clogged Feeding Tube Ascorbic Acid 250 mg 06/17/20 22:00 08/01/20 09:25 Ascorbic Acid 250 Mg Tab PO 250 mg BID CONNOR Administration Cholecalciferol 1,000 unit 06/18/20 10:00 08/01/20 09:26 Cholecalciferol (Vit D3) 1000 Unit (25 Mcg) Tab PO 1,000 unit DAILY CONNOR Administration Dextrose 50 ml 07/26/20 22:00 07/27/20 06:42 Dextrose 50% In Water (25gm) 50 Ml Syringe IV 50 ml Q30MIN PRN Administration Hypoglycemia Protocol Docusate Sodium 100 mg 06/23/20 15:00 08/01/20 09:27 Docusate Sodium 100 Mg/10 Ml Oral Liqd FEEDTUBE Not Given BID CONNOR Fentanyl 50 mcg 06/18/20 01:02 07/27/20 16:59 Fentanyl 100 Mcg/2 Ml Inj IV 50 mcg Q10MIN PRN Administration ANALGESIA Heparin Sodium (Porcine) 5,000 unit 06/22/20 12:53 07/28/20 20:45 Heparin 10,000 Unit/1 Ml Vial IV 5,000 unit PAM PRN Administration hemodialysis Hydrophilic Ointment 1 applic 06/17/20 22:52 07/12/20 20:22 Lip Therapy Vaseline TP 1 applic Q2HR PRN Administration Dry Lips Propofol 1,000 mg in 100 mls @ 3.402 mls/hr 06/18/20 01:00 08/01/20 00:00 Diprivan 10 Mg/Ml IV 5 mcg/kg/min TITR CONNOR 3.402 mls/hr Titration Protocol 5 MCG/KG/MIN Fentanyl Citrate 2,000 mcg in 100 mls @ 8 mls/hr 06/18/20 02:00 08/01/20 06:25 Fentanyl Drip Premix IV 4 mcg/kg/hr TITR CONNOR 32 mls/hr Administration Protocol 1 MCG/KG/HR Norepinephrine 4 mg in 250 mls @ 7.5 mls/hr 07/08/20 02:06 08/01/20 04:59 Levophed Drip 4 Mg/Ns 250 Ml IV 10 mcg/min TITR CONNOR 37.5 mls/hr Administration Protocol 2 MCG/MIN Vasopressin 20 unit/ Sodium 101 mls @ 9.09 mls/hr 07/11/20 11:00 07/18/20 15:36 Chloride IV 0 units/min TITR CONNOR 0 mls/hr Titration Protocol 0.03 UNITS/MIN Amiodarone HCl 900 mg/ 500 mls @ 33.333 mls/hr 07/27/20 17:00 07/31/20 17:58 Dextrose IV 0.5 mg/min DIRECT CONNOR 16.667 mls/hr Administration Protocol 1 MG/MIN Sodium Chloride 100 mls @ 999 mls/hr 07/27/20 18:40 Nacl 0.9% IV PMA PRN Hypotension Sodium Chloride 500 mls @ 0 mls/hr 08/01/20 09:37 Nacl 0.9% 500 Ml IV 08/01/20 23:59 ONCE NR As Directed Sodium Chloride 500 mls @ 0 mls/hr 08/01/20 13:08 Nacl 0.9% 500 Ml IV 08/01/20 23:59 ONCE NR As Directed Insulin Human Regular 0 units 06/18/20 12:00 08/01/20 05:52 Insulin Regular, Human 100 Units/1 Ml SUB-Q Not Given Q6HR [facility] Protocol Multi-Ingred Cream/Lotion/Oil/Oint 1 applic 06/17/20 22:52 07/12/20 20:22 Mineral Oil/Petrolatum, White Ophth Oint 3.5 Gm OU 1 applic Q4HR PRN Administration Dry Eye(s) Ondansetron HCl 4 mg 06/17/20 14:17 Ondansetron 4 Mg/2 Ml Inj IV Q8H PRN Nausea And Vomiting Pantoprazole Sodium 40 mg 07/16/20 22:00 08/01/20 09:26 Pantoprazole 40 Mg Inj IV 40 mg BID CONNOR Administration Polyethylene Glycol 17 gm 06/23/20 15:00 08/01/20 09:27 Polyethylene Glycol 3350 17 Gm Powder PO Not Given QDAY [facility] Quetiapine Fumarate 200 mg 06/28/20 13:00 08/01/20 09:25 Quetiapine 200 Mg Tab PO 200 mg BID CONNOR Administration Scopolamine 1 each 07/29/20 14:00 08/01/20 09:25 Scopolamine Transdermal Patch 72 Hr TD 1 each Q3D CONNOR Administration Simple Syrup 15 ml 06/19/20 12:15 07/26/20 13:55 Simple Syrup 15 Ml FEEDTUBE 15 ml PRN PRN Administration Hypoglycemia Simple Syrup 30 ml 06/19/20 12:15 07/19/20 06:04 Simple Syrup 15 Ml FEEDTUBE 30 ml PRN PRN Administration Hypoglycemia Sodium Bicarbonate 325 mg 06/19/20 12:15 07/11/20 20:00 Sodium Bicarbonate 325 Mg Tab FEEDTUBE 325 mg PRN PRN Administration For Clogged Feeding Tube Sodium Chloride 10 ml 06/17/20 22:00 08/01/20 09:28 Sodium Chloride 0.9% 10 Ml Flush Syringe IV 10 ml BID CONNOR Administration Sodium Chloride 10 ml 06/17/20 14:17 07/30/20 09:46 Sodium Chloride 0.9% 10 Ml Flush Syringe IV 10 ml PRN PRN Administration LINE FLUSH Sodium Hypochlorite 1 applic 07/20/20 10:00 08/01/20 09:30 Sodium Hypochlorite, Dakin's 1/2 Strength (0.25%) 473 Ml Topical Soln TP 1 applicatio BID CONNOR Administration Zinc Sulfate 220 mg 06/17/20 22:00 08/01/20 09:26 Zinc Sulfate 220 Mg Cap PO 220 mg BID CONNOR Administration Nutrition/Malnutrition Assess - Dietary Evaluation Nutrition/Malnutrition Findings: Nutrition Notes Start: 06/18/20 10:28 Freq: Status: Active Protocol: Document 08/01/20 11:47 CW (Rec: 08/01/20 11:57 CW [id number]) Nutrition Notes Initial or Follow up Reassessment Current Diagnosis Acute Kidney Injury,Sepsis, Respiratory Failure Other Pertinent Diagnosis Pneu, on HD. Current Diet Nepro 1.8 at 55 ml/hr Labs/Tests BUN 56 Cr 2.6 Pertinent Medications Zinc Vit C Norepipherine Propofol 3.2 ml/hr (84 kcal) Height 6 ft Weight 157.2 kg [place] Body Weight (kg) 80.90 BMI 47.0 Weight change and time frame weight stable at this time Weight Status Morbidly Obese Subjective/Other Information F/U TF running at new goal. TF of Nepro is running at 55 ml/ hr and being well tolerated. RN to follow up on administration of Gee. Pt remains on vent Percent of energy/protein needs met: 108%/66% Burn Absent Trauma Absent GI Symptoms Other Skin Integrity/Comment Unstageable Sacral Pressure Ulcer Current % PO Negligible Minimum of two criteria No physical signs of malnutrition #3 Nutrition Diagnosis Increased nutrient needs ( specify in comment below) Diagnosis Progress(for reassessment Continues documentation) #1 Nutrition Diagnosis Inadequate oral intake Diagnosis Progress(for reassessment Continues documentation) Is patient on ventilator? Yes Is Patient Ambulatory and/or Out of Bed No REE-(Harmans-St. Jeor-confined to bed) 2896.068 Kcal/Kg value to use for calculation 14 Approximate Energy Requirements Using 2201 kcal/Kg Calculation Used for Recommendations Kcal/kg Additional Notes Protein: Up to 162 g (up to 2. 5 g/kg IBW) Fluids: 1,000 ml + output Nutrition Intervention Change Diet Order: TF Nutrition Support: Nepro 1.8 at 55 ml/hr Flush 250 ml q4h Kcal 2,376 Protein (gm) 107 Fluid (mL) 959 Add Supplement/Snack (indicate name/kcal Gee BID /protein ) Provides kCal: 190 Provides Protein (gm) 5 Goal #1 TF tolerance Goal #2 Meet energy and protein needs as best as possible via TF Goal #3 Wound healing. Anticipated Discharge Needs: Nepro 1.8 at 55 ml/hr Flush 250 ml q4h with Richard BID until wound healed Follow-Up By: 08/04/20 Additional Comments F/U for TF tolerance and Gee tolerance
[2020-08-01] MEDS: VASOPRESSIN 20 UNIT in SODIUM CHLORIDE 0.9% 100 ML IV SCH (18:50)
[2020-08-01] MEDS: ACETAMINOPHEN 325 MG TAB PO PRN (21:48)
[2020-08-02] MEDS: INSULIN REGULAR, HUMAN 100 UNITS/1 ML SUB-Q SCH ×5 (00:09→23:30)
[2020-08-02] MEDS: AMPICILLIN/NS 2 GM/100 ML 2 GM/100 ML BAG IV SCH (00:14)
[2020-08-02] MEDS: SODIUM HYPOCHLORITE, DAKIN'S 1/2 STRENGTH (0.25%) 473 ML TOPICAL SOLN TP SCH ×3 (00:15→21:12)
[2020-08-02] MEDS: NORepinephrine/NS 4 MG-250 ML 4 MG/250 ML BAG IV SCH ×2 (00:21→19:42)
[2020-08-02] MEDS: fentaNYL DRIP Premix 2,000 MCG/100 ML BAG IV SCH ×7 (01:56→21:25)
[2020-08-02] MEDS: ACETAMINOPHEN 325 MG TAB PO PRN ×2 (01:59→06:00)
[2020-08-02] MEDS: VASOPRESSIN 20 UNIT in SODIUM CHLORIDE 0.9% 100 ML IV SCH (03:02)
--- NOTE | 2020-08-02 03:48 | XRay Report ---
CHEST 1 VIEW 08/02/2020 2:18 AM INDICATION / CLINICAL INFORMATION: Pulmonary edema. COMPARISON: 07/25/2020 FINDINGS: SUPPORT DEVICES: New tracheostomy tube projects in expected position. Endotracheal nasogastric tubes have been removed. Right IJ CVL again projects over SVC HEART / MEDIASTINUM: No significant abnormality. LUNGS / PLEURA: Moderate bilateral parenchymal disease and small bilateral pleural effusions, unchang ed accounting for differences in technique No pneumothorax. ADDITIONAL FINDINGS: No significant additional findings. IMPRESSION: 1. Stable bilateral pleural-parenchymal disease Signer Name: Chaitanya Beaver MD Signed: 08/02/2020 3:44 AM Workstation Name: [id number]
[2020-08-02 05:50] LABS: Hematocrit 24.6 % (35.5-45.6); Hemoglobin 8.3 gm/dl (11.8-15.2); Mean Corpuscular HGB Conc 34 % (32-34); Mean Corpuscular Volume 90 fl (84-94); Platelet Count 227 K/mm3 (140-440); Red Blood Count 2.73 M/mm3 (3.65-5.03)
--- NOTE | 2020-08-02 08:27 | Progress Note ---
Assessment and Plan - Patient Problems (1) Acute renal failure Current Visit: Yes Status: Acute Qualifiers: Acute renal failure type: with acute tubular necrosis Qualified Code(s): N17.0 - Acute kidney failure with tubular necrosis Plan to address problem: Likely prerenal in nature secondary to new onset of COVID-19 pneumonia with worsening sepsis and hypotension. Concern for acute tubular necrosis. Has now been on HD with no significant findings of renal recovery at present time. He is also requiring extra isolated UF treatments to further optimize his volume status. No signs of renal recovery at this point. Concern for possible worsening sepsis and recommendations per ID for removal of vas catheter as well as right IJ. Unfortunately he will then not have any access for dialysis this patient still remains severely anasarcic and hemodialysis dependent with essentially no urine output. Per vascular recommendations, would hold off on removing vascath without evide nce of bacteremia but did recommend the possibility of exchanging over guide wire if cultures do become positive, but at this time there has been no growth for the last 24 hours. We will continue to monitor closely. Otherwise we will continue on hemodialysis regimen. He is remaining on a Saturday/Saturday/Saturday hemodialysis schedule with Saturday and for sequential ultrafiltration treatment to further optimize volume status. (2) Pneumonia due to COVID-19 virus Current Visit: Yes Status: Acute Plan to address problem: Management per infectious disease recommendations. (3) Acute respiratory failure with hypoxia Current Visit: Yes Status: Acute Plan to address problem: Patient underwent tracheostomy. Further management per pulmonary. (4) Anemia Current Visit: Yes Status: Acute Qualifiers: Other causes of anemia: acute posthemorrhagic Plan to address problem: Transfuse to maintain Hgb >7.0. (5) Hyperkalemia Current Visit: Yes Status: Acute Plan to address problem: Manage with HD. Subjective Date of service: 08/02/20 Principal diagnosis: ARF; Septic Shock; COVID-19 PNA; Atrial fibrillation; Obesity Interval history: Patient tolerated hemodialysis well without any issues and were able to remove 2 L of ultrafiltration. Remains on pressor support with vasopressin at this time. No other acute events overnight. Orders for transfusion of 1 unit packed red blood cells yesterday. Objective - Vital Signs Vital signs: Vital Signs - 12hr 08/01/20 08/01/20 08/01/20 20:30 21:00 21:31 Temperature Pulse Rate 100 H 108 H 131 H Respiratory 30 H 30 H 29 H Rate Blood Pressure 114/64 119/64 126/87 O2 Sat by Pulse 98 98 95 Oximetry O2 Sat by Pulse Oximetry [ Assessment] 08/01/20 08/01/20 08/01/20 22:00 22:30 23:00 Temperature Pulse Rate 112 H 109 H 113 H Respiratory 30 H 30 H 30 H Rate Blood Pressure 108/53 100/53 106/52 O2 Sat by Pulse 95 96 97 Oximetry O2 Sat by Pulse Oximetry [ Assessment] 08/01/20 08/01/20 08/01/20 23:30 23:36 23:45 Temperature Pulse Rate 108 H 114 H 103 H Respiratory 30 H 30 H Rate Blood Pressure 100/55 100/55 107/58 O2 Sat by Pulse 98 97 97 Oximetry O2 Sat by Pulse Oximetry [ Assessment] 08/01/20 08/01/20 08/02/20 23:55 23:56 00:00 Temperature 100 F H Pulse Rate 103 H Respiratory 20 30 H Rate Blood Pressure 105/53 O2 Sat by Pulse 97 Oximetry O2 Sat by Pulse 94 Oximetry [ Assessment] 08/02/20 08/02/20 08/02/20 00:30 01:01 01:30 Temperature Pulse Rate 91 H 99 H 122 H Respiratory 30 H 28 H 30 H Rate Blood Pressure 111/49 104/58 112/59 O2 Sat by Pulse 96 91 97 Oximetry O2 Sat by Pulse Oximetry [ Assessment] 08/02/20 08/02/20 08/02/20 02:00 02:31 03:00 Temperature Pulse Rate 113 H 92 H 91 H Respiratory 30 H 32 H 30 H Rate Blood Pressure 100/55 133/62 129/58 O2 Sat by Pulse 96 96 97 Oximetry O2 Sat by Pulse Oximetry [ Assessment] 08/02/20 08/02/20 08/02/20 03:30 04:00 04:01 Temperature 100.7 F H Pulse Rate 93 H 110 H 112 H Respiratory 31 H 20 32 H Rate Blood Pressure 123/64 129/62 153/60 O2 Sat by Pulse 96 93 93 Oximetry O2 Sat by Pulse Oximetry [ Assessment] 08/02/20 08/02/20 08/02/20 04:31 05:00 05:30 Temperature Pulse Rate 103 H 96 H 89 Respiratory 36 H 25 H 30 H Rate Blood Pressure 116/55 97/45 105/45 O2 Sat by Pulse 94 96 96 Oximetry O2 Sat by Pulse Oximetry [ Assessment] 08/02/20 08/02/20 08/02/20 06:00 06:30 07:00 Temperature Pulse Rate 88 86 84 Respiratory 30 H 30 H 31 H Rate Blood Pressure 108/46 107/45 104/44 O2 Sat by Pulse 97 97 98 Oximetry O2 Sat by Pulse Oximetry [ Assessment] 08/02/20 08/02/20 08/02/20 07:24 07:30 07:45 Temperature 98.7 F Pulse Rate 79 82 Respiratory 30 H Rate Blood Pressure 100/44 O2 Sat by Pulse 98 Oximetry O2 Sat by Pulse Oximetry [ Assessment] 08/02/20 08/02/20 07:55 08:00 Temperature Pulse Rate 80 Respiratory 20 30 H Rate Blood Pressure 102/45 O2 Sat by Pulse 98 Oximetry O2 Sat by Pulse Oximetry [ Assessment] - General Appearance General appearance: chronically ill, intubated EENT: ATNC Neck: no JVD Respiratory: Present: Decreased Breath Sounds Cardiology: regular Gastrointestinal: normal Integumentary: skin tear Neurologic: other (Intubated and sedated) Musculoskeletal: other (Anasarca and 3+ pitting edema) - Lab 08/02/20 05:20 08/01/20 05:00 Most recent lab results ABG pH 7.330 (7.320-7.450) 08/01/20 04:48 ABG pCO2 44.4 mm Hg 07/28/20 14:31 ABG pO2 68.0 mm Hg (80.0-90.0) L 07/28/20 14:31 ABG HCO3 23.1 mmol/L (20.0-26.0) 07/28/20 14:31 ABG O2 Saturation 98.4 (0-100) 08/01/20 04:48 Calcium 7.8 mg/dL (8.4-10.2) L 08/01/20 05:00 Phosphorus 9.40 mg/dL (2.5-4.5) H 06/30/20 03:50 Magnesium 2.70 mg/dL (1.7-2.3) H 06/18/20 20:33 Urine Creatinine 192.4 mg/dL (0.1-20.0) H 06/18/20 15:00 Urine Sodium 28 mmol/L 06/18/20 15:00 - Allied health notes Allied health notes reviewed: nursing Medications & Allergies - Medications Allergies/Adverse Reactions: Allergies No Known Allergies Allergy (Unverified 06/17/20 14:24) Home Medications: Home Medications Medication Instructions Recorded Confirmed Last Taken Type Losartan/Hydrochlorothiazide 1 each PO QDAY 06/19/20 06/19/20 Unknown History [Losartan-Hctz 100-25 mg Tab] amLODIPine [Norvasc] 5 mg PO DAILY 06/19/20 06/19/20 Unknown History Active Medications: Generic Name Dose Route Start Last Admin Trade Name Freq PRN Reason Stop Dose Admin Acetaminophen 650 mg 06/17/20 14:17 08/02/20 06:00 Acetaminophen 325 Mg Tab PO 650 mg Q4H PRN Administration Pain MILD(1-3)/Fever >100.5/ROBERTS Albuterol 2.5 mg 07/19/20 12:15 Albuterol 2.5 Mg/3 Ml Nebu IH Q6HRT PRN Shortness Of Breath Alteplase, Recombinant 2 mg 07/27/20 18:40 Alteplase 2 Mg Inj IV PAM PRN LINE FLUSH Amiodarone HCl 200 mg 07/19/20 14:00 08/01/20 21:39 Amiodarone 200 Mg Tab PO 200 mg BID CONNOR Administration Lipase/Protease/Amylase 1 each 06/19/20 12:15 Lipase 10,500/Protease 25,000/Amylase 43,750 (Units) Dr Kulkarni FEEDTUBE PRN PRN For Clogged Feeding Tube Ascorbic Acid 250 mg 06/17/20 22:00 08/01/20 21:39 Ascorbic Acid 250 Mg Tab PO 250 mg BID CONNOR Administration Cholecalciferol 1,000 unit 06/18/20 10:00 08/01/20 09:26 Cholecalciferol (Vit D3) 1000 Unit (25 Mcg) Tab PO 1,000 unit DAILY CONNOR Administration Dextrose 50 ml 07/26/20 22:00 07/27/20 06:42 Dextrose 50% In Water (25gm) 50 Ml Syringe IV 50 ml Q30MIN PRN Administration Hypoglycemia Protocol Docusate Sodium 100 mg 06/23/20 15:00 08/01/20 21:13 Docusate Sodium 100 Mg/10 Ml Oral Liqd FEEDTUBE Not Given BID CONNOR Fentanyl 50 mcg 06/18/20 01:02 07/27/20 16:59 Fentanyl 100 Mcg/2 Ml Inj IV 50 mcg Q10MIN PRN Administration ANALGESIA Heparin Sodium (Porcine) 5,000 unit 06/22/20 12:53 07/28/20 20:45 Heparin 10,000 Unit/1 Ml Vial IV 5,000 unit PAM PRN Administration hemodialysis Hydrophilic Ointment 1 applic 06/17/20 22:52 07/12/20 20:22 Lip Therapy Vaseline TP 1 applic Q2HR PRN Administration Dry Lips Propofol 1,000 mg in 100 mls @ 3.402 mls/hr 06/18/20 01:00 08/02/20 05:30 Diprivan 10 Mg/Ml IV 5 mcg/kg/min TITR CONNOR 3.402 mls/hr Titration Protocol 5 MCG/KG/MIN Fentanyl Citrate 2,000 mcg in 100 mls @ 8 mls/hr 06/18/20 02:00 08/02/20 05:36 Fentanyl Drip Premix IV 4 mcg/kg/hr TITR CONNOR 32 mls/hr Administration Protocol 1 MCG/KG/HR Norepinephrine 4 mg in 250 mls @ 7.5 mls/hr 07/08/20 02:06 08/02/20 04:04 Levophed Drip 4 Mg/Ns 250 Ml IV 0 mcg/min TITR CONNOR 0 mls/hr Titration Protocol 2 MCG/MIN Vasopressin 20 unit/ Sodium 101 mls @ 9.09 mls/hr 07/11/20 11:00 08/02/20 04:48 Chloride IV 0.03 units/min TITR CONNOR 9.09 mls/hr Titration Protocol 0.03 UNITS/MIN Amiodarone HCl 900 mg/ 500 mls @ 33.333 mls/hr 07/27/20 17:00 07/31/20 17:58 Dextrose IV 0.5 mg/min DIRECT CONNOR 16.667 mls/hr Administration Protocol 1 MG/MIN Sodium Chloride 100 mls @ 999 mls/hr 07/27/20 18:40 Nacl 0.9% IV PAM PRN Hypotension Insulin Human Regular 0 units 06/18/20 12:00 08/02/20 06:58 Insulin Regular, Human 100 Units/1 Ml SUB-Q Not Given Q6HR [facility] Protocol Multi-Ingred Cream/Lotion/Oil/Oint 1 applic 06/17/20 22:52 07/12/20 20:22 Mineral Oil/Petrolatum, White Ophth Oint 3.5 Gm OU 1 applic Q4HR PRN Administration Dry Eye(s) Ondansetron HCl 4 mg 06/17/20 14:17 Ondansetron 4 Mg/2 Ml Inj IV Q8H PRN Nausea And Vomiting Pantoprazole Sodium 40 mg 07/16/20 22:00 08/01/20 21:39 Pantoprazole 40 Mg Inj IV 40 mg BID CONNOR Administration Polyethylene Glycol 17 gm 06/23/20 15:00 08/01/20 09:27 Polyethylene Glycol 3350 17 Gm Powder PO Not Given QDAY [facility] Quetiapine Fumarate 200 mg 06/28/20 13:00 08/01/20 21:39 Quetiapine 200 Mg Tab PO 200 mg BID CONNOR Administration Scopolamine 1 each 07/29/20 14:00 08/01/20 09:25 Scopolamine Transdermal Patch 72 Hr TD 1 each Q3D CONNOR Administration Simple Syrup 15 ml 06/19/20 12:15 07/26/20 13:55 Simple Syrup 15 Ml FEEDTUBE 15 ml PRN PRN Administration Hypoglycemia Simple Syrup 30 ml 06/19/20 12:15 07/19/20 06:04 Simple Syrup 15 Ml FEEDTUBE 30 ml PRN PRN Administration Hypoglycemia Sodium Bicarbonate 325 mg 06/19/20 12:15 07/11/20 20:00 Sodium Bicarbonate 325 Mg Tab FEEDTUBE 325 mg PRN PRN Administration For Clogged Feeding Tube Sodium Chloride 10 ml 06/17/20 22:00 08/01/20 21:38 Sodium Chloride 0.9% 10 Ml Flush Syringe IV 10 ml BID CONNOR Administration Sodium Chloride 10 ml 06/17/20 14:17 07/30/20 09:46 Sodium Chloride 0.9% 10 Ml Flush Syringe IV 10 ml PRN PRN Administration LINE FLUSH Sodium Hypochlorite 1 applic 07/20/20 10:00 08/02/20 00:15 Sodium Hypochlorite, Dakin's 1/2 Strength (0.25%) 473 Ml Topical Soln TP 1 applicatio BID CONNOR Administration Zinc Sulfate 220 mg 06/17/20 22:00 08/01/20 21:39 Zinc Sulfate 220 Mg Cap PO 220 mg BID CONNOR Administration
--- NOTE | 2020-08-02 08:36 | Progress Note ---
Assessment and Plan Cultures: SARS CoV2 PCR: Positive 06/17/2020 blood culture: No growth 06/17/2020 sputum culture: No growth 07/15/2020 blood culture: No growth 07/15/2020 fungal blood culture: Enterococcus faecalis 07/15/2020 tracheal aspirate culture: Usual respiratory otf 07/18/2020 blood culture: no growth 07/31/2020 blood culture no growth 08/01/2020 tracheal aspirate pending A/P: 59-year-old male with obesity, obesity hypoventilation syndrome: #Severe sepsis with septic shock, ?also component of hemorrhagic shock. Remains on pressors, leukocytosis, no fever for 36 hours #Enterococcus bacteremia: 07/15/2020 fungal blood culture: grew Enterococcus. ?gut translocation. Interestingly other blood cultures from that day were negative. CT abdomen showed some colitis. Since repeat blood cultures negative, will fi patricia 14 days of abx. #Anemia, GI bleed: GI on board. #Critical COVID-19 pneumonia: s/p abx, steroids and remdesivir. #Acute hypoxic respiratory failure: on the vent. Also with pneumomediastinum, s ubcutaneous emphysema. #Leukemoid reaction: likely multifactorial. #GIRISH: remains on HD per nephrology. Renally dose abx. #Extensive sacral decubitus: s/p debridement by Dr. Kirk on 07/20/2020. Recs: -Start cefepime 1 g IV once a day empirically given septic shock with persistent fever, unknown source -Check MRSA PCR -Left femoral Vas-Cath cannot be removed per IR. Placed on 06/22/2020 -F/u Repeat blood cultures, sputum cultures -UA pending -Completed ampicillin 14 days on 08/01/2020 -monitor fever and WBC Guarded prognosis Bere Hampton MD [facility] ([facility]) Office [phone] Subjective Date of service: 08/02/20 Principal diagnosis: ARF; Septic Shock; COVID-19 PNA; Atrial fibrillation; Obesity Interval history: Remains on pressors, vasopressin, low-grade fever 100.7, remains on the ventilator via trach FiO2 70% PEEP 8 Objective - Exam Narrative Exam: General appearance: Sedated on the ventilator Eyes: anicteric sclerae, moist conjunctivae; no lid-lag; PERRLA HENT: Normocephalic, Atraumatic; normal external ears, nares open, oropharynx limited Neck: Trach in place Lungs: Bilateral rhonchi CV: RRR Abdomen: Soft nontender abdominal wall edema Extremities: Bilateral leg edema Skin: Sacral decubitus extensive not examined Psych: Sedated Neuro: Sedated - Constitutional Vitals: Vital Signs Temp Pulse Resp BP Pulse Ox 98.7 F 80 30 H 102/45 98 08/02/20 07:24 08/02/20 08:00 08/02/20 08:00 08/02/20 08:00 08/02/20 08:00 Temperature -Last 24 Hours Temperature 98.7 F Temperature 100.7 F Temperature 100 F Temperature 100.1 F Temperature 98.1 F Temperature 98.1 F Temperature 98.9 F Temperature 98.5 F - Labs CBC & Chem 7: 08/02/20 05:20 08/01/20 05:00 Labs: Abnormal lab results 07/30/20 08/01/20 08/01/20 Range/Units 23:13 11:53 17:38 WBC (4.5-11.0) K/mm3 RBC (3.65-5.03) M/mm3 Hgb (11.8-15.2) gm/dl Hct (35.5-45.6) % RDW (13.2-15.2) % POC Glucose 107 H 111 H (70-105) mg/dL Crossmatch See Detail 08/01/20 08/02/20 08/02/20 Range/Units 23:49 05:11 05:20 WBC 17.2 H (4.5-11.0) K/mm3 RBC 2.73 L (3.65-5.03) M/mm3 Hgb 8.3 L (11.8-15.2) gm/dl Hct 24.6 L (35.5-45.6) % RDW 16.0 H (13.2-15.2) % POC Glucose 107 H 119 H (70-105) mg/dL Crossmatch
[2020-08-02] MEDS ORDERED: CEFEPIME/NS 1 GM/100 ML 1 GM/100 ML BAG IV SCH (09:00)
[2020-08-02] MEDS: POLYETHYLENE GLYCOL 3350 17 GM POWDER PO SCH (09:38)
[2020-08-02] MEDS: CHOLECALCIFEROL (VIT D3) 1000 UNIT (25 mcg) TAB PO SCH (09:38)
[2020-08-02] MEDS: PANTOPRAZOLE 40 MG INJ IV SCH ×2 (09:38→21:11)
[2020-08-02] MEDS: ZINC SULFATE 220 MG CAP PO SCH ×2 (09:38→21:11)
[2020-08-02] MEDS: QUEtiapine 200 MG TAB PO SCH ×2 (09:38→21:11)
[2020-08-02] MEDS: ASCORBIC ACID 250 MG TAB PO SCH ×2 (09:38→21:11)
[2020-08-02] MEDS: AMIODARONE 200 MG TAB PO SCH ×2 (09:38→21:11)
[2020-08-02] MEDS: DOCUSATE SODIUM 100 MG/10 ML ORAL LIQD FEEDTUBE SCH ×2 (09:38→21:13)
--- NOTE | 2020-08-02 12:05 | Discharge Summary ---
Providers - Providers Date of Admission: 06/17/20 14:17 Date of discharge: 08/02/20 Attending physician: MATIAS PERALTA MD 06/17/20 12:05 Consult to Physician [CONS] Urgent Comment: Consulting Provider: CATHERINE SAMS Physician Instructions: Reason For Exam: hypoxia covid 06/17/20 22:53 Consult to Dietitian/Nutrition [CONS] Routine Physician Instructions: Reason For Exam: Reason for Consult: Evaluate nutritional intake 06/17/20 23:29 Consult to Physician [CONS] Urgent Comment: Consulting Provider: ELKIN MANRIQUEZ Physician Instructions: Reason For Exam: Acute hypoxic respiratory failure, Pneumonia 06/18/20 09:27 Consult to Dietitian/Nutrition [CONS] Routine Physician Instructions: Reason For Exam: tf management while proned Reason for Consult: Write/Manage Tube Feeding 06/18/20 12:14 Consult to Physician [CONS] Routine Comment: Consulting Provider: JACINTO LATHAM Physician Instructions: Reason For Exam: covid, acute renal failure 06/22/20 13:03 Consult to Physician [CONS] Urgent Comment: called office/ [facility] Consulting Provider: DEBRA BONE Physician Instructions: Reason For Exam: Renal failure needs Trialysiscath for dialysis 07/01/20 15:37 Consult to Dietitian/Nutrition [CONS] Routine Physician Instructions: Reason For Exam: Reason for Consult: Write/Manage Tube Feeding 07/01/20 19:13 Consult to Wound/ET Nurse [CONS] Routine Reason For Exam: sacral wound 07/13/20 16:40 Consult to Physician [CONS] Routine Comment: called office/ bria Consulting Provider: LETY HINDS Physician Instructions: Reason For Exam: Rectal bleeding 07/16/20 10:27 Consult to Physician [CONS] Routine Comment: Consulting Provider: NELLY FOSTER Physician Instructions: Reason For Exam: LEUKOCYTOSIS 07/17/20 11:55 Consult to Physician [CONS] Routine Comment: Consulting Provider: CATHERINE SAMS Physician Instructions: Reason For Exam: Bacteremia; Septic Shock 07/19/20 17:22 Consult to Wound/ET Nurse [CONS] Routine Reason For Exam: sacrum wound worsen 07/20/20 09:09 Consult to Physician [CONS] Routine Comment: Consulting Provider: MANE KIRK Physician Instructions: Debridement of sacral decubitus Reason For Exam: sacral decubitus 07/23/20 14:25 Consult to Physician [CONS] Routine Comment: Consulting Provider: MANE KIRK Physician Instructions: Reason For Exam: Tracheostomy & PEG placement 07/31/20 18:54 Consult to Physician [CONS] Routine Comment: Consulting Provider: SARINA POOL Physician Instructions: Reason For Exam: trialysis access transfer Hospitalization Condition: Fair Hospital course: History Interval history: 59-year-old white male who was admitted for pneumonia secondary to Covid with associated respiratory failure and sepsis. On 06/18 patient was intubated overnight after persistent hypoxia with BiPAP therapy and was started on 2 vasopressors and nephrology was consulted due to declining renal function. Patient was placed on a heparin drip on 06/19 for atrial fibrillation. Patient renal function continued to decline despite a diuretic challenge and she was eventually initiated on hemodialysis on 06/22. Patient was persistently hyperkalemic and eventually developed atrial fibrillation with RVR and he was on amiodarone drip for rate control. During his stay patient has been transfused several times and has been on and off amiodarone drip for A. fib with RVR. Patient was continued his dialysis and remained on ventilatory support throughout his stay. Throughout his stay he required vasopressor support. Patient developed GI bleed but a CT abdomen/pelvis showed no definite sign of bleeding. Patient was deemed to be unstable for a breathing study. Patient has a sacral ulcer which was debrided multiple times during his stay. Throughout his stay patient remained sedated with fentanyl and propofol. Patient was treated with IV antibiotics for Enterococcus bacteremia. Per vascular surgery if patient's blood cultures become positive consider a Vas-Cath exchange over wire in attempt to decrease bioburden. Patient received additional unit of PRBC yesterday for hemoglobin of 6.8. Patient was started on cefepime today per infectious disease for close persistent low-grade fevers and leukocytosis. Throughout his stay patient received 17 units of PRBC and 1 unit of FFP. Patient care will be transferred to [facility]. [facility] physicians have been kept updated throughout his stay. Patient will need to continue his hemodialysis and follow-up with his primary care physician, infectious disease, nephrology, pulmonology, WOCN and cardiology. Severe septic shock COVID-19 pneumonia Sacral wound, stage 4 Leukemoid reaction Acute metabolic encephalopathy Acute hypoxic respiratory failure Enterococcus bacteremia Pneumomediastinum Acute kidney injury likely secondary to acute tubular necrosis which progressed to hemodialysis SVT/proximal atrial fibrillation Elevated LFTs Anemia likely due to severe sepsis had declining renal function Morbid obesity Leukocytosis Hypoalbuminemia Sacral decubitus: s/p debridements Assessment and Plan -S/p dexamethasone and remdesivir therapy, contact/droplet isolation, vitamin C/vitamin D/zinc, anticoagulation per protocol, trend inflammatory markers -Wean mechanical ventilation as tolerated, VAP bundle -HD per nephrology -Transfuse for hemaglobin less than 7, s/p 10 units PRBC during stay -Nephrology, ID, heme-onc, GI , CCM, cardiology consulted,appreciate recommendations -BCR-ABL mutation testing pending -Per infectious disease: s/pampicillin. Plan to exchange out lines if pressor requirement changes -Monitor leukocytosis and fevers -If patient blood cultures were to turn positive he will need an exchange over line for his vascular access per vascular surgery. -Hold systemic anticoagulation in setting of severe anemia -Amiodarone for rate control -s/p debridement by Dr. Kirk, WOCN consulted, WC per nursing, 07/27 debridement repeated -07/22 COVID-19 PCR negative, discontinued contact/droplet isolation -08/02 antibiotic therapy restarted prior ID and MRSA PCR pending DVT prophylaxis: GI prophylaxis, heparin subcu, SCDs to bilateral LE while in bed Disposition: LTACH Disposition: [id number] MEDICARE CERT LT Final Discharge Diagnosis (Prints w/discharge instructions): Sepsis Time spent for discharge: 35 Core Measure Documentation - Palliative Care Palliative Care/ Comfort Measures: Not Applicable - Core Measures Any of the following diagnoses?: none Exam - Physical Exam Narrative exam: General appearance: Present: mild distress, well-nourished - EENT ENT: ulcerations - Respiratory Respiratory effort: normal Respiratory: bilateral: diminished - Cardiovascular Rhythm: regular Heart Sounds: Present: S1 & S2. Absent: systolic murmur, diastolic murmur - Extremities Extremities: no ischemia, pulses intact, pulses symmetrical, normal color Peripheral Pulses: within normal limits - Abdominal General gastrointestinal: soft, non-tender, non-distended, normal bowel sounds - Integumentary Integumentary: Present: dry, edema - Psychiatric Psychiatric: other (sedated) - Neurologic Neurologic: other (sedated) - Constitutional Vitals: Temp Pulse Resp BP Pulse Ox 98.9 F 74 25 H 110/52 98 08/02/20 11:58 08/02/20 12:00 08/02/20 11:00 08/02/20 12:00 08/02/20 11:52 Plan Activity: advance as tolerated, fall precautions Diet: per dietitian instruction Wound: per your surgeon's advice, per wound nurse instructions Special Instructions: record daily weights, record daily BP diary, record blood sugar diary Follow up with: JAJA AYALA,ARIES Magallon [Other] - 3-5 Days JERE DESAI MD [Staff Physician] - 7 Days ELKIN MANRIQUEZ MD [Staff Physician] - 7 Days MANE KIRK MD [Staff Physician] - 7 Days RENETTA NICOLE MD [Staff Physician] - 7 Days JACINTO LATHAM MD [Staff Physician] - 7 Days
--- NOTE | 2020-08-02 12:36 | Progress Note ---
Assessment and Plan Pt s/p trach and PEG. tele reviewed - currently in NSR. Cont present cardiac management. Pt for discharge to LTAC. The patient has been seen in conjunction with Dr. Chavis who agrees with the assessment and plan of care. - Patient Problems (1) Acute respiratory failure with hypoxia Current Visit: Yes Status: Acute (2) Pneumonia due to COVID-19 virus Current Visit: Yes Status: Acute (3) Sepsis Current Visit: Yes Status: Acute Qualifiers: Severe sepsis acute organ dysfunction type: acute respiratory failure Severe sepsis shock status: with septic shock (4) Paroxysmal atrial fibrillation with rapid ventricular response Current Visit: Yes Status: Acute (5) Acute renal failure Current Visit: Yes Status: Acute (6) Elevated LFTs Current Visit: Yes Status: Acute (7) Anemia Current Visit: Yes Status: Acute Subjective Date of service: 08/02/20 Principal diagnosis: ARF; Septic Shock; COVID-19 PNA; Atrial fibrillation; Obesity Interval history: pt s/p trach and PEG. tele reviewed - in SR HR 80s. Objective Last Vital Signs Temp 98.9 F 08/02/20 11:58 Pulse 75 08/02/20 12:30 Resp 30 H 08/02/20 12:00 BP 110/49 08/02/20 12:30 Pulse Ox 96 08/02/20 12:00 - Physical Examination General: Other (trached, sedated) Neck: Positive: neck supple Cardiac: Positive: Reg Rate and Rhythm, S1/S2 Lungs: Positive: Decreased Breath Sounds Neuro: Positive: Other (trached, sedated) Abdomen: Positive: Unremarkable Skin: Negative: Rash, Wound Extremities: Present: upper extr. pulses, lower extr. pulses, +1 Edema - Labs and Meds CBC 08/02/20 Range/Units 05:20 WBC 17.2 H (4.5-11.0) K/mm3 RBC 2.73 L (3.65-5.03) M/mm3 Hgb 8.3 L (11.8-15.2) gm/dl Hct 24.6 L (35.5-45.6) % Plt Count 227 (140-440) K/mm3 - Imaging and Cardiology EKG: report reviewed, image reviewed Echo: report reviewed (TDS, EF 55-60%. ) - Telemetry EKG Rhythm: Sinus Rhythm - EKG Sinus rhythms and dysrhythmias: sinus tachycardia - Allied health notes Allied health notes reviewed: nursing
[2020-08-02] MEDS: CEFEPIME/NS 2 GM/100 ML 2 GM/100 ML BAG IV SCH (13:33)
--- NOTE | 2020-08-02 13:36 | Progress Note ---
Assessment and Plan Acute hypoxemic respiratory failure due to COVID-19 Severe COVID infection Severe Sepsis with shock Bilateral pneumonia Acute kidney injury (GIRISH) with acute tubular necrosis (ATN) Elevated liver enzymes Obesity - RIJ to trialysis catheter changed over wire - pull right femoral vascath - OK to transfer to LTAC after next dialysis session to confirm functioning catheter - continue to wean vasopressors for target MAP > 65 mmHg (On Levophed) - continue wound care per RN / WCN - continue HD/UF per nephrology prescription - continue care as below otherwise; - daily SAT's as tolerated - continue wound care per WCN / RN - continue on bariatric bed - continue to avoid supine position as much as possible - adjust ant-infective's per ID rec's (Ampicillin) - continue bid protonix - continue tube feeds at goal rate as tolerated - continue HD/UF per nephrology team for toxin and volume clearance - continue bowel regimen - Continue to wean supplemental oxygen for O2 sats >92% - Monitor blood pressure closely while optimizing sedation,wean vasopressor support for MAP > 65 mmHg - VAP bundle addressed, aspiration precautions HOB >40 - continue lung protective strategies, permissive hypercapnic acceptable. - continue bronchodilators with routine trach care and pulmonary hygiene per RT - wean per pulmonary driven protocols otherwise - accuchecks with glycemic control per SSI (While critically ill target blood glucose of 140-180 mg/dL; avoid hypoglycemia) - sedation prn for target RASS -1 to -2 - continue enteral nutritional support at goal rate as tolerated - on antibiotics per ID recommendations - follow clinically re: fevers / WBC - Monitor liver function test ,avoid hepatotoxic agents - azotemia per nephrology rec's - Avoid nephrotoxins, renally dose all medications, conservative fluid management - continue to avoid benzodiazepines, reduce the possibility of delirium, - prn analgesia per CPOT score - Maintenance of sleep-wake cycle, avoid delirium - Stress ulcer prophylaxis, Pantoprazole - PT/OT/ROM exercises - Mobility protocols for pressure ulcer prevention - CXR, ABG in am - CBC, CMP in am - Supportive transfusions to keep HgB >7g/dL - Monitor hemodynamics closely - continue other care per attending / other consultants COVID SPECIFIC INTERVENTIONS - s/p steroids: Dexamethasone - completed Remdesivir - monitor inflammatory markers prn - ferritin, D-dimer, CRP, LDH per facility protocol - continue anticoagulation per System Protocol based on d-dimer (on hold due to bleeding) - continue contact and airborne isolation CONDITION: CRITICAL PROGNOSIS: GUARDED CODE STATUS: FULL CODE The high probability of a clinically significant, sudden or life-threatening deterioration of the [respiratory, cardiovascular, hematologic & neurologic] system(s) required my full and direct attention, intervention and personal management. The aggregate critical care time was [35] minutes without overlap. Time includes spent on; [x] Data Review and interpretation [x] Patient assessment and monitoring of vital signs [x] Documentation [x] Medication orders and management He was evaluated in the context of the global COVID-19 pandemic, which necessitated consideration that the patient might be at risk for infection with the virus that causes COVID-19. Institutional protocols and algorithms that pertain to the evaluation of patients at risk for COVID-19 are in a state of rapid change based on information released by regulatory bodies including the CDC and federal and state organizations. These policies and algorithms were followed during the patient's care in the ICU Please note that these policies, procedures and recommendations changed on a rapid basis. Subjective Date of service: 08/02/20 Principal diagnosis: ARF; Septic Shock; COVID-19 PNA; Atrial fibrillation; Obesity Interval history: Patient is seen today for: Ac hypoxemic respiratory failure; COVID-19; Severe Sepsis with shock; Zackery. pneumonia; GIRISH; Elevated liver enzymes; Obesity Seen and examined at bedside; 24hour events reviewed; nursing and respiratory care staff consulted; no adverse overnight events reported to me; resting in bed; remains on MVS; HD/UF again today; tentatively for transfer to LTAC but devin l need replacement of vas-cath and trial of new catheter prior; no new issues otherwise Objective Vital Signs - 12hr 08/02/20 08/02/20 08/02/20 02:00 02:31 03:00 Temperature Pulse Rate 113 H 92 H 91 H Respiratory 30 H 32 H 30 H Rate Blood Pressure 100/55 133/62 129/58 O2 Sat by Pulse 96 96 97 Oximetry O2 Sat by Pulse Oximetry [ Anterior Bilateral Throughout] O2 Sat by Pulse Oximetry [ Assessment] 08/02/20 08/02/20 08/02/20 03:30 04:00 04:01 Temperature 100.7 F H Pulse Rate 93 H 110 H 112 H Respiratory 31 H 20 32 H Rate Blood Pressure 123/64 129/62 153/60 O2 Sat by Pulse 96 93 93 Oximetry O2 Sat by Pulse Oximetry [ Anterior Bilateral Throughout] O2 Sat by Pulse Oximetry [ Assessment] 08/02/20 08/02/20 08/02/20 04:31 05:00 05:30 Temperature Pulse Rate 103 H 96 H 89 Respiratory 36 H 25 H 30 H Rate Blood Pressure 116/55 97/45 105/45 O2 Sat by Pulse 94 96 96 Oximetry O2 Sat by Pulse Oximetry [ Anterior Bilateral Throughout] O2 Sat by Pulse Oximetry [ Assessment] 08/02/20 08/02/20 08/02/20 06:00 06:30 07:00 Temperature Pulse Rate 88 86 84 Respiratory 30 H 30 H 31 H Rate Blood Pressure 108/46 107/45 104/44 O2 Sat by Pulse 97 97 98 Oximetry O2 Sat by Pulse Oximetry [ Anterior Bilateral Throughout] O2 Sat by Pulse Oximetry [ Assessment] 08/02/20 08/02/20 08/02/20 07:24 07:30 07:45 Temperature 98.7 F Pulse Rate 79 82 Respiratory 30 H Rate Blood Pressure 100/44 O2 Sat by Pulse 98 Oximetry O2 Sat by Pulse Oximetry [ Anterior Bilateral Throughout] O2 Sat by Pulse Oximetry [ Assessment] 08/02/20 08/02/20 08/02/20 07:55 08:00 08:30 Temperature Pulse Rate 80 79 Respiratory 20 30 H 30 H Rate Blood Pressure 102/45 102/49 O2 Sat by Pulse 98 98 Oximetry O2 Sat by Pulse Oximetry [ Anterior Bilateral Throughout] O2 Sat by Pulse Oximetry [ Assessment] 08/02/20 08/02/20 08/02/20 08:38 08:49 09:00 Temperature Pulse Rate 79 80 Respiratory 30 H Rate Blood Pressure 108/47 101/45 O2 Sat by Pulse 97 97 Oximetry O2 Sat by Pulse Oximetry [ Anterior Bilateral Throughout] O2 Sat by Pulse 97 Oximetry [ Assessment] 08/02/20 08/02/20 08/02/20 09:15 09:30 09:45 Temperature 98.3 F Pulse Rate 83 83 83 Respiratory 30 H 30 H Rate Blood Pressure 107/49 107/49 104/46 O2 Sat by Pulse 99 Oximetry O2 Sat by Pulse Oximetry [ Anterior Bilateral Throughout] O2 Sat by Pulse Oximetry [ Assessment] 08/02/20 08/02/20 08/02/20 10:00 10:15 10:30 Temperature Pulse Rate 81 79 77 Respiratory 30 H 30 H Rate Blood Pressure 107/47 103/46 110/50 O2 Sat by Pulse 100 100 Oximetry O2 Sat by Pulse Oximetry [ Anterior Bilateral Throughout] O2 Sat by Pulse Oximetry [ Assessment] 08/02/20 08/02/20 08/02/20 10:45 11:00 11:15 Temperature Pulse Rate 76 74 75 Respiratory 25 H Rate Blood Pressure 111/50 109/49 112/48 O2 Sat by Pulse 99 Oximetry O2 Sat by Pulse Oximetry [ Anterior Bilateral Throughout] O2 Sat by Pulse Oximetry [ Assessment] 08/02/20 08/02/20 08/02/20 11:30 11:45 11:52 Temperature Pulse Rate 75 74 74 Respiratory 23 Rate Blood Pressure 111/49 113/50 113/50 O2 Sat by Pulse 99 98 Oximetry O2 Sat by Pulse Oximetry [ Anterior Bilateral Throughout] O2 Sat by Pulse Oximetry [ Assessment] 08/02/20 08/02/20 08/02/20 11:58 12:00 12:15 Temperature 98.9 F Pulse Rate 73 74 Respiratory 30 H Rate Blood Pressure 110/52 113/50 O2 Sat by Pulse 96 Oximetry O2 Sat by Pulse Oximetry [ Anterior Bilateral Throughout] O2 Sat by Pulse Oximetry [ Assessment] 08/02/20 08/02/20 08/02/20 12:30 12:34 13:01 Temperature 98.9 F Pulse Rate 75 75 100 H Respiratory 30 H 27 H 37 H Rate Blood Pressure 110/49 110/49 130/58 O2 Sat by Pulse 97 94 Oximetry O2 Sat by Pulse 96 Oximetry [ Anterior Bilateral Throughout] O2 Sat by Pulse Oximetry [ Assessment] 08/02/20 13:30 Temperature Pulse Rate 95 H Respiratory 34 H Rate Blood Pressure 133/57 O2 Sat by Pulse 94 Oximetry O2 Sat by Pulse Oximetry [ Anterior Bilateral Throughout] O2 Sat by Pulse Oximetry [ Assessment] Constitutional: no acute distress, other (obese, atraumatic, normocephalic, mild resp distress, orally intubated) Eyes: non-icteric ENT: oropharynx moist, other (s/p tracheostomy) Neck: supple, no lymphadenopathy, other (Large , short neck) Effort: mildly labored Ascultation: Bilateral: diminished breath sounds, rhonchi Percussion: Bilateral: not dull Cardiovascular: irregular rhythm, other (S1,S2) Gastrointestinal: normoactive bowel sounds, soft, non-tender, non-distended (protuberant) Integumentary: rash, other (Femoral CVC, Newell catheter) Extremities: pink and warm, pulses normal, no ischemia or petechiae, edema (trace to 1+) Neurologic: non-focal exam (grossly), pupils equal and round, CN II-XII normal, other (unable to assess, sedated) Psychiatric: other (unable to assess, sedated) CBC and BMP: 08/02/20 05:20 08/01/20 05:00 ABG, PT/INR, D-dimer: ABG ABG pH 7.330 (7.320-7.450) 08/01/20 04:48 POC ABG pCO2 42.1 mmHg (32.0-48.0) 08/01/20 04:48 ABG pCO2 44.4 mm Hg 07/28/20 14:31 POC ABG pO2 111.5 mmHg (83-108) H 08/01/20 04:48 ABG pO2 68.0 mm Hg (80.0-90.0) L 07/28/20 14:31 POC ABG HCO3 21.7 08/01/20 04:48 ABG O2 Saturation 98.4 (0-100) 08/01/20 04:48 PT/INR, D-dimer PT 15.3 Sec. (12.2-14.9) H 07/24/20 20:40 INR 1.21 (0.87-1.13) H 07/24/20 20:40 D-Dimer 6608.00 ng/mlDDU (0-234) H 07/03/20 14:50 Abnormal lab findings: Abnormal Labs 06/17/20 06/17/20 06/17/20 12:33 12:33 12:33 WBC 19.5 H RBC 5.18 H Hgb 15.5 H Hct MCHC RDW Plt Count Lymph % (Auto) 3.8 L [place] % (Auto) Lymph # (Auto) 0.7 L [place] # (Auto) Eos # (Auto) Baso # (Auto) Seg Neutrophils % Seg Neuts % (Manual) 99.0 H Lymphocytes % (Manual) 1.0 L Monocytes % (Manual) Basophils % (Manual) Nucleated RBC % Seg Neutrophils # 18.2 H Seg Neutrophils # Man 19.3 H Lymphocytes # (Manual) 0.2 L Monocytes # (Manual) Eosinophils # (Manual) Basophils # (Manual) PT 16.5 H INR 1.33 H APTT D-Dimer 1025.04 H Heparin Anti-Xa Level ABG pH POC ABG pCO2 POC ABG pO2 ABG pO2 ABG HCO3 ABG O2 Saturation ABG Base Excess ABG Hemoglobin ABG Oxyhemoglobin ABG Sodium ABG Potassium ABG Chloride ABG Glucose Oxyhemoglobin Carboxyhemoglobin Sodium 130 L Potassium 3.4 L Chloride 95.0 L Carbon Dioxide BUN 21 H Creatinine Glucose 137 H POC Glucose Lactic Acid Calcium 7.9 L Phosphorus Magnesium Ferritin Direct Bilirubin AST 84 H ALT 67 H Alkaline Phosphatase Lactate Dehydrogenase 437 H Total Creatine Kinase 310 H C-Reactive Protein 27.90 H Total Protein Albumin 2.9 L Triglycerides Arterial Blood Glucose Arterial Blood Ionized Calcium Urine Creatinine Urine Chloride Vancomycin Trough Coronavirus (PCR) Crossmatch 06/17/20 06/17/20 06/17/20 12:33 12:33 14:48 WBC RBC Hgb Hct MCHC RDW Plt Count Lymph % (Auto) [place] % (Auto) Lymph # (Auto) [place] # (Auto) Eos # (Auto) Baso # (Auto) Seg Neutrophils % Seg Neuts % (Manual) Lymphocytes % (Manual) Monocytes % (Manual) Basophils % (Manual) Nucleated RBC % Seg Neutrophils # Seg Neutrophils # Man Lymphocytes # (Manual) Monocytes # (Manual) Eosinophils # (Manual) Basophils # (Manual) PT INR APTT D-Dimer Heparin Anti-Xa Level ABG pH POC ABG pCO2 POC ABG pO2 ABG pO2 ABG HCO3 ABG O2 Saturation ABG Base Excess ABG Hemoglobin ABG Oxyhemoglobin ABG Sodium ABG Potassium ABG Chloride ABG Glucose Oxyhemoglobin Carboxyhemoglobin Sodium Potassium Chloride Carbon Dioxide BUN Creatinine Glucose POC Glucose Lactic Acid 2.50 H* 2.20 H* Calcium Phosphorus Magnesium Ferritin 2297.0 H Direct Bilirubin AST ALT Alkaline Phosphatase Lactate Dehydrogenase Total Creatine Kinase C-Reactive Protein Total Protein Albumin Triglycerides Arterial Blood Glucose Arterial Blood Ionized Calcium Urine Creatinine Urine Chloride Vancomycin Trough Coronavirus (PCR) Crossmatch 06/17/20 06/17/20 06/17/20 14:48 14:48 14:48 WBC RBC Hgb Hct MCHC RDW Plt Count Lymph % (Auto) [place] % (Auto) Lymph # (Auto) [place] # (Auto) Eos # (Auto) Baso # (Auto) Seg Neutrophils % Seg Neuts % (Manual) Lymphocytes % (Manual) Monocytes % (Manual) Basophils % (Manual) Nucleated RBC % Seg Neutrophils # Seg Neutrophils # Man Lymphocytes # (Manual) Monocytes # (Manual) Eosinophils # (Manual) Basophils # (Manual) PT INR APTT D-Dimer 939.89 H Heparin Anti-Xa Level ABG pH POC ABG pCO2 POC ABG pO2 ABG pO2 ABG HCO3 ABG O2 Saturation ABG Base Excess ABG Hemoglobin ABG Oxyhemoglobin ABG Sodium ABG Potassium ABG Chloride ABG Glucose Oxyhemoglobin Carboxyhemoglobin Sodium Potassium Chloride Carbon Dioxide BUN Creatinine Glucose 141 H POC Glucose Lactic Acid Calcium Phosphorus Magnesium Ferritin > 2000.0 H Direct Bilirubin AST ALT Alkaline Phosphatase Lactate Dehydrogenase 503 H Total Creatine Kinase C-Reactive Protein 24.70 H Total Protein Albumin Triglycerides Arterial Blood Glucose Arterial Blood Ionized Calcium Urine Creatinine Urine Chloride Vancomycin Trough Coronavirus (PCR) Crossmatch 06/17/20 06/17/20 06/17/20 16:54 19:39 23:43 WBC RBC Hgb Hct MCHC RDW Plt Count Lymph % (Auto) [place] % (Auto) Lymph # (Auto) [place] # (Auto) Eos # (Auto) Baso # (Auto) Seg Neutrophils % Seg Neuts % (Manual) Lymphocytes % (Manual) Monocytes % (Manual) Basophils % (Manual) Nucleated RBC % Seg Neutrophils # Seg Neutrophils # Man Lymphocytes # (Manual) Monocytes # (Manual) Eosinophils # (Manual) Basophils # (Manual) PT INR APTT D-Dimer Heparin Anti-Xa Level ABG pH 7.571 H POC ABG pCO2 24.3 L POC ABG pO2 41.6 L ABG pO2 ABG HCO3 ABG O2 Saturation ABG Base Excess ABG Hemoglobin ABG Oxyhemoglobin 84.0 L ABG Sodium 131.0 L ABG Potassium ABG Chloride ABG Glucose 163 H Oxyhemoglobin Carboxyhemoglobin Sodium Potassium Chloride Carbon Dioxide BUN Creatinine Glucose POC Glucose 185 H Lactic Acid 2.10 H* Calcium Phosphorus Magnesium Ferritin Direct Bilirubin AST ALT Alkaline Phosphatase Lactate Dehydrogenase Total Creatine Kinase C-Reactive Protein Total Protein Albumin Triglycerides Arterial Blood Glucose 163 H Arterial Blood Ionized Calcium 4.4 L Urine Creatinine Urine Chloride Vancomycin Trough Coronavirus (PCR) Crossmatch 06/18/20 06/18/20 06/18/20 00:17 00:23 03:55 WBC RBC Hgb Hct MCHC RDW Plt Count Lymph % (Auto) [place] % (Auto) Lymph # (Auto) [place] # (Auto) Eos # (Auto) Baso # (Auto) Seg Neutrophils % Seg Neuts % (Manual) Lymphocytes % (Manual) Monocytes % (Manual) Basophils % (Manual) Nucleated RBC % Seg Neutrophils # Seg Neutrophils # Man Lymphocytes # (Manual) Monocytes # (Manual) Eosinophils # (Manual) Basophils # (Manual) PT INR APTT D-Dimer Heparin Anti-Xa Level ABG pH POC ABG pCO2 POC ABG pO2 56.5 L 48.3 L ABG pO2 ABG HCO3 ABG O2 Saturation ABG Base Excess ABG Hemoglobin ABG Oxyhemoglobin 86.3 L 81.7 L ABG Sodium 132.9 L 131.0 L ABG Potassium ABG Chloride ABG Glucose 189 H 161 H Oxyhemoglobin Carboxyhemoglobin 0.4 L Sodium Potassium Chloride Carbon Dioxide BUN Creatinine Glucose POC Glucose Lactic Acid 3.80 H* Calcium Phosphorus Magnesium Ferritin Direct Bilirubin AST ALT Alkaline Phosphatase Lactate Dehydrogenase Total Creatine Kinase C-Reactive Protein Total Protein Albumin Triglycerides Arterial Blood Glucose 189 H 161 H Arterial Blood Ionized Calcium 4.3 L 4.2 L Urine Creatinine Urine Chloride Vancomycin Trough Coronavirus (PCR) Crossmatch 06/18/20 06/18/20 06/18/20 05:39 05:39 05:39 WBC 26.2 H RBC Hgb Hct MCHC RDW Plt Count Lymph % (Auto) [place] % (Auto) Lymph # (Auto) [place] # (Auto) Eos # (Auto) Baso # (Auto) Seg Neutrophils % Seg Neuts % (Manual) 90.0 H Lymphocytes % (Manual) 5.0 L Monocytes % (Manual) Basophils % (Manual) Nucleated RBC % Seg Neutrophils # Seg Neutrophils # Man 23.6 H Lymphocytes # (Manual) Monocytes # (Manual) 1.3 H Eosinophils # (Manual) Basophils # (Manual) PT INR APTT D-Dimer Heparin Anti-Xa Level ABG pH POC ABG pCO2 POC ABG pO2 ABG pO2 ABG HCO3 ABG O2 Saturation ABG Base Excess ABG Hemoglobin ABG Oxyhemoglobin ABG Sodium ABG Potassium ABG Chloride ABG Glucose Oxyhemoglobin Carboxyhemoglobin Sodium 135 L Potassium Chloride 97.5 L Carbon Dioxide 21 L BUN 39 H Creatinine 1.7 H D Glucose 168 H POC Glucose Lactic Acid 3.40 H* Calcium 7.2 L Phosphorus Magnesium Ferritin Direct Bilirubin AST ALT Alkaline Phosphatase Lactate Dehydrogenase Total Creatine Kinase C-Reactive Protein Total Protein Albumin Triglycerides Arterial Blood Glucose Arterial Blood Ionized Calcium Urine Creatinine Urine Chloride Vancomycin Trough Coronavirus (PCR) Crossmatch 06/18/20 06/18/20 06/18/20 07:24 09:00 10:10 WBC RBC Hgb Hct MCHC RDW Plt Count Lymph % (Auto) [place] % (Auto) Lymph # (Auto) [place] # (Auto) Eos # (Auto) Baso # (Auto) Seg Neutrophils % Seg Neuts % (Manual) Lymphocytes % (Manual) Monocytes % (Manual) Basophils % (Manual) Nucleated RBC % Seg Neutrophils # Seg Neutrophils # Man Lymphocytes # (Manual) Monocytes # (Manual) Eosinophils # (Manual) Basophils # (Manual) PT INR APTT D-Dimer Heparin Anti-Xa Level ABG pH POC ABG pCO2 POC ABG pO2 ABG pO2 ABG HCO3 ABG O2 Saturation ABG Base Excess ABG Hemoglobin ABG Oxyhemoglobin ABG Sodium ABG Potassium ABG Chloride ABG Glucose Oxyhemoglobin Carboxyhemoglobin Sodium Potassium Chloride Carbon Dioxide BUN Creatinine Glucose POC Glucose Lactic Acid 2.90 H* 3.20 H* Calcium Phosphorus Magnesium Ferritin Direct Bilirubin AST ALT Alkaline Phosphatase Lactate Dehydrogenase Total Creatine Kinase C-Reactive Protein Total Protein Albumin Triglycerides Arterial Blood Glucose Arterial Blood Ionized Calcium Urine Creatinine Urine Chloride Vancomycin Trough Coronavirus (PCR) Positive A Crossmatch 06/18/20 06/18/20 06/18/20 11:58 14:43 15:00 WBC RBC Hgb Hct MCHC RDW Plt Count Lymph % (Auto) [place] % (Auto) Lymph # (Auto) [place] # (Auto) Eos # (Auto) Baso # (Auto) Seg Neutrophils % Seg Neuts % (Manual) Lymphocytes % (Manual) Monocytes % (Manual) Basophils % (Manual) Nucleated RBC % Seg Neutrophils # Seg Neutrophils # Man Lymphocytes # (Manual) Monocytes # (Manual) Eosinophils # (Manual) Basophils # (Manual) PT INR APTT D-Dimer Heparin Anti-Xa Level ABG pH 7.303 L POC ABG pCO2 POC ABG pO2 82.3 L ABG pO2 ABG HCO3 ABG O2 Saturation ABG Base Excess ABG Hemoglobin ABG Oxyhemoglobin ABG Sodium 135.3 L ABG Potassium ABG Chloride ABG Glucose 215 H Oxyhemoglobin Carboxyhemoglobin 0.3 L Sodium Potassium Chloride Carbon Dioxide BUN Creatinine Glucose POC Glucose 209 H Lactic Acid Calcium Phosphorus Magnesium Ferritin Direct Bilirubin AST ALT Alkaline Phosphatase Lactate Dehydrogenase Total Creatine Kinase C-Reactive Protein Total Protein Albumin Triglycerides Arterial Blood Glucose 215 H Arterial Blood Ionized Calcium 4.2 L Urine Creatinine 192.4 H Urine Chloride 31.1 L Vancomycin Trough Coronavirus (PCR) Crossmatch 06/18/20 06/18/20 06/18/20 17:16 19:44 20:33 WBC RBC Hgb Hct MCHC RDW Plt Count Lymph % (Auto) [place] % (Auto) Lymph # (Auto) [place] # (Auto) Eos # (Auto) Baso # (Auto) Seg Neutrophils % Seg Neuts % (Manual) Lymphocytes % (Manual) Monocytes % (Manual) Basophils % (Manual) Nucleated RBC % Seg Neutrophils # Seg Neutrophils # Man Lymphocytes # (Manual) Monocytes # (Manual) Eosinophils # (Manual) Basophils # (Manual) PT INR APTT D-Dimer Heparin Anti-Xa Level ABG pH POC ABG pCO2 POC ABG pO2 ABG pO2 ABG HCO3 ABG O2 Saturation ABG Base Excess ABG Hemoglobin ABG Oxyhemoglobin ABG Sodium ABG Potassium ABG Chloride ABG Glucose Oxyhemoglobin Carboxyhemoglobin Sodium Potassium Chloride Carbon Dioxide BUN Creatinine Glucose POC Glucose 182 H Lactic Acid 3.00 H* Calcium Phosphorus Magnesium 2.70 H Ferritin Direct Bilirubin AST ALT Alkaline Phosphatase Lactate Dehydrogenase Total Creatine Kinase C-Reactive Protein Total Protein Albumin Triglycerides Arterial Blood Glucose Arterial Blood Ionized Calcium Urine Creatinine Urine Chloride Vancomycin Trough Coronavirus (PCR) Crossmatch 06/18/20 06/19/20 06/19/20 23:43 04:00 04:00 WBC 31.6 H RBC Hgb Hct MCHC RDW Plt Count Lymph % (Auto) [place] % (Auto) Lymph # (Auto) [place] # (Auto) Eos # (Auto) Baso # (Auto) Seg Neutrophils % Seg Neuts % (Manual) 98.0 H Lymphocytes % (Manual) 0.5 L Monocytes % (Manual) Basophils % (Manual) Nucleated RBC % Seg Neutrophils # Seg Neutrophils # Man 31.0 H Lymphocytes # (Manual) 0.2 L Monocytes # (Manual) Eosinophils # (Manual) Basophils # (Manual) PT INR APTT D-Dimer Heparin Anti-Xa Level ABG pH POC ABG pCO2 POC ABG pO2 ABG pO2 ABG HCO3 ABG O2 Saturation ABG Base Excess ABG Hemoglobin ABG Oxyhemoglobin ABG Sodium ABG Potassium ABG Chloride ABG Glucose Oxyhemoglobin Carboxyhemoglobin Sodium Potassium Chloride Carbon Dioxide BUN 56 H Creatinine 1.6 H Glucose 176 H POC Glucose 149 H Lactic Acid Calcium 7.0 L Phosphorus Magnesium Ferritin Direct Bilirubin AST 244 H ALT 159 H Alkaline Phosphatase Lactate Dehydrogenase Total Creatine Kinase C-Reactive Protein Total Protein 4.9 L D Albumin 2.5 L Triglycerides Arterial Blood Glucose Arterial Blood Ionized Calcium Urine Creatinine Urine Chloride Vancomycin Trough Coronavirus (PCR) Crossmatch 06/19/20 06/19/20 06/19/20 04:00 05:44 11:42 WBC RBC Hgb Hct MCHC RDW Plt Count Lymph % (Auto) [place] % (Auto) Lymph # (Auto) [place] # (Auto) Eos # (Auto) Baso # (Auto) Seg Neutrophils % Seg Neuts % (Manual) Lymphocytes % (Manual) Monocytes % (Manual) Basophils % (Manual) Nucleated RBC % Seg Neutrophils # Seg Neutrophils # Man Lymphocytes # (Manual) Monocytes # (Manual) Eosinophils # (Manual) Basophils # (Manual) PT INR APTT D-Dimer Heparin Anti-Xa Level ABG pH 7.265 L POC ABG pCO2 51.8 H POC ABG pO2 65.1 L ABG pO2 ABG HCO3 ABG O2 Saturation ABG Base Excess ABG Hemoglobin ABG Oxyhemoglobin ABG Sodium ABG Potassium ABG Chloride ABG Glucose 184 H Oxyhemoglobin Carboxyhemoglobin Sodium Potassium Chloride Carbon Dioxide BUN Creatinine Glucose POC Glucose 156 H 191 H Lactic Acid Calcium Phosphorus Magnesium Ferritin Direct Bilirubin AST ALT Alkaline Phosphatase Lactate Dehydrogenase Total Creatine Kinase C-Reactive Protein Total Protein Albumin Triglycerides Arterial Blood Glucose 184 H Arterial Blood Ionized Calcium 4.3 L Urine Creatinine Urine Chloride Vancomycin Trough Coronavirus (PCR) Crossmatch 06/19/20 06/19/20 06/19/20 12:30 17:16 18:36 WBC RBC Hgb Hct MCHC RDW Plt Count Lymph % (Auto) [place] % (Auto) Lymph # (Auto) [place] # (Auto) Eos # (Auto) Baso # (Auto) Seg Neutrophils % Seg Neuts % (Manual) Lymphocytes % (Manual) Monocytes % (Manual) Basophils % (Manual) Nucleated RBC % Seg Neutrophils # Seg Neutrophils # Man Lymphocytes # (Manual) Monocytes # (Manual) Eosinophils # (Manual) Basophils # (Manual) PT 16.4 H INR 1.32 H APTT D-Dimer Heparin Anti-Xa Level ABG pH 7.088 L POC ABG pCO2 78.1 H POC ABG pO2 208.3 H ABG pO2 ABG HCO3 ABG O2 Saturation ABG Base Excess ABG Hemoglobin ABG Oxyhemoglobin 98.3 H ABG Sodium ABG Potassium 5.0 H ABG Chloride ABG Glucose 182 H Oxyhemoglobin Carboxyhemoglobin 0.4 L Sodium Potassium Chloride Carbon Dioxide BUN Creatinine Glucose POC Glucose 154 H Lactic Acid Calcium Phosphorus Magnesium Ferritin Direct Bilirubin AST ALT Alkaline Phosphatase Lactate Dehydrogenase Total Creatine Kinase C-Reactive Protein Total Protein Albumin Triglycerides Arterial Blood Glucose 182 H Arterial Blood Ionized Calcium 4.3 L Urine Creatinine Urine Chloride Vancomycin Trough Coronavirus (PCR) Crossmatch 06/19/20 06/20/20 06/20/20 23:32 03:00 05:19 WBC RBC Hgb Hct MCHC RDW Plt Count Lymph % (Auto) [place] % (Auto) Lymph # (Auto) [place] # (Auto) Eos # (Auto) Baso # (Auto) Seg Neutrophils % Seg Neuts % (Manual) Lymphocytes % (Manual) Monocytes % (Manual) Basophils % (Manual) Nucleated RBC % Seg Neutrophils # Seg Neutrophils # Man Lymphocytes # (Manual) Monocytes # (Manual) Eosinophils # (Manual) Basophils # (Manual) PT INR APTT D-Dimer Heparin Anti-Xa Level 0.77 H ABG pH POC ABG pCO2 POC ABG pO2 ABG pO2 ABG HCO3 ABG O2 Saturation ABG Base Excess ABG Hemoglobin ABG Oxyhemoglobin ABG Sodium ABG Potassium ABG Chloride ABG Glucose Oxyhemoglobin Carboxyhemoglobin Sodium Potassium Chloride Carbon Dioxide BUN Creatinine Glucose POC Glucose 201 H 190 H Lactic Acid Calcium Phosphorus Magnesium Ferritin Direct Bilirubin AST ALT Alkaline Phosphatase Lactate Dehydrogenase Total Creatine Kinase C-Reactive Protein Total Protein Albumin Triglycerides Arterial Blood Glucose Arterial Blood Ionized Calcium Urine Creatinine Urine Chloride Vancomycin Trough Coronavirus (PCR) Crossmatch 06/20/20 06/20/20 06/20/20 08:25 08:25 11:36 WBC RBC Hgb Hct MCHC RDW Plt Count Lymph % (Auto) [place] % (Auto) Lymph # (Auto) [place] # (Auto) Eos # (Auto) Baso # (Auto) Seg Neutrophils % Seg Neuts % (Manual) Lymphocytes % (Manual) Monocytes % (Manual) Basophils % (Manual) Nucleated RBC % Seg Neutrophils # Seg Neutrophils # Man Lymphocytes # (Manual) Monocytes # (Manual) Eosinophils # (Manual) Basophils # (Manual) PT INR APTT D-Dimer Heparin Anti-Xa Level ABG pH POC ABG pCO2 POC ABG pO2 ABG pO2 ABG HCO3 ABG O2 Saturation ABG Base Excess ABG Hemoglobin ABG Oxyhemoglobin ABG Sodium ABG Potassium ABG Chloride ABG Glucose Oxyhemoglobin Carboxyhemoglobin Sodium 135 L Potassium 5.4 H Chloride 109.2 H Carbon Dioxide 19 L BUN 68 H Creatinine 2.5 H D Glucose 201 H POC Glucose 184 H Lactic Acid Calcium 5.5 L* D Phosphorus Magnesium Ferritin Direct Bilirubin AST 123 H ALT 86 H Alkaline Phosphatase Lactate Dehydrogenase Total Creatine Kinase C-Reactive Protein Total Protein 4.6 L Albumin 1.5 L Triglycerides Arterial Blood Glucose Arterial Blood Ionized Calcium Urine Creatinine Urine Chloride Vancomycin Trough 22.7 H Coronavirus (PCR) Crossmatch 06/20/20 06/20/20 06/20/20 11:40 17:28 20:00 WBC RBC Hgb Hct MCHC RDW Plt Count Lymph % (Auto) [place] % (Auto) Lymph # (Auto) [place] # (Auto) Eos # (Auto) Baso # (Auto) Seg Neutrophils % Seg Neuts % (Manual) Lymphocytes % (Manual) Monocytes % (Manual) Basophils % (Manual) Nucleated RBC % Seg Neutrophils # Seg Neutrophils # Man Lymphocytes # (Manual) Monocytes # (Manual) Eosinophils # (Manual) Basophils # (Manual) PT INR APTT D-Dimer Heparin Anti-Xa Level 0.89 H ABG pH 7.099 L POC ABG pCO2 61.1 H POC ABG pO2 ABG pO2 ABG HCO3 ABG O2 Saturation ABG Base Excess ABG Hemoglobin ABG Oxyhemoglobin ABG Sodium ABG Potassium 5.0 H ABG Chloride 111.0 H ABG Glucose 200 H Oxyhemoglobin Carboxyhemoglobin 0.4 L Sodium Potassium Chloride Carbon Dioxide BUN Creatinine Glucose POC Glucose 165 H Lactic Acid Calcium Phosphorus Magnesium Ferritin Direct Bilirubin AST ALT Alkaline Phosphatase Lactate Dehydrogenase Total Creatine Kinase C-Reactive Protein Total Protein Albumin Triglycerides Arterial Blood Glucose 200 H Arterial Blood Ionized Calcium 4.2 L Urine Creatinine Urine Chloride Vancomycin Trough Coronavirus (PCR) Crossmatch 06/20/20 06/21/20 06/21/20 23:29 05:00 05:20 WBC RBC Hgb Hct MCHC RDW Plt Count Lymph % (Auto) [place] % (Auto) Lymph # (Auto) [place] # (Auto) Eos # (Auto) Baso # (Auto) Seg Neutrophils % Seg Neuts % (Manual) Lymphocytes % (Manual) Monocytes % (Manual) Basophils % (Manual) Nucleated RBC % Seg Neutrophils # Seg Neutrophils # Man Lymphocytes # (Manual) Monocytes # (Manual) Eosinophils # (Manual) Basophils # (Manual) PT INR APTT D-Dimer Heparin Anti-Xa Level ABG pH POC ABG pCO2 POC ABG pO2 ABG pO2 ABG HCO3 ABG O2 Saturation ABG Base Excess ABG Hemoglobin ABG Oxyhemoglobin ABG Sodium ABG Potassium ABG Chloride ABG Glucose Oxyhemoglobin Carboxyhemoglobin Sodium Potassium Chloride 112.0 H Carbon Dioxide 20 L BUN 92 H Creatinine 3.9 H D Glucose 214 H POC Glucose 145 H 191 H Lactic Acid Calcium 6.5 L D Phosphorus Magnesium Ferritin Direct Bilirubin AST 98 H ALT 84 H Alkaline Phosphatase Lactate Dehydrogenase Total Creatine Kinase C-Reactive Protein Total Protein 4.6 L Albumin 2.1 L Triglycerides 180 H Arterial Blood Glucose Arterial Blood Ionized Calcium Urine Creatinine Urine Chloride Vancomycin Trough Coronavirus (PCR) Crossmatch 06/21/20 06/21/20 06/21/20 08:56 11:12 12:43 WBC RBC Hgb Hct MCHC RDW Plt Count Lymph % (Auto) [place] % (Auto) Lymph # (Auto) [place] # (Auto) Eos # (Auto) Baso # (Auto) Seg Neutrophils % Seg Neuts % (Manual) Lymphocytes % (Manual) Monocytes % (Manual) Basophils % (Manual) Nucleated RBC % Seg Neutrophils # Seg Neutrophils # Man Lymphocytes # (Manual) Monocytes # (Manual) Eosinophils # (Manual) Basophils # (Manual) PT INR APTT D-Dimer Heparin Anti-Xa Level 0.28 L ABG pH 7.184 L POC ABG pCO2 48.3 H POC ABG pO2 172.1 H ABG pO2 ABG HCO3 ABG O2 Saturation ABG Base Excess ABG Hemoglobin ABG Oxyhemoglobin 98.7 H ABG Sodium ABG Potassium 4.9 H ABG Chloride 112.0 H ABG Glucose 196 H Oxyhemoglobin Carboxyhemoglobin 0.2 L Sodium Potassium Chloride Carbon Dioxide BUN Creatinine Glucose POC Glucose 177 H Lactic Acid Calcium Phosphorus Magnesium Ferritin Direct Bilirubin AST ALT Alkaline Phosphatase Lactate Dehydrogenase Total Creatine Kinase C-Reactive Protein Total Protein Albumin Triglycerides Arterial Blood Glucose 196 H Arterial Blood Ionized Calcium 4.1 L Urine Creatinine Urine Chloride Vancomycin Trough Coronavirus (PCR) Crossmatch 06/21/20 06/21/20 06/22/20 16:31 Unknown 00:12 WBC RBC Hgb Hct MCHC RDW Plt Count Lymph % (Auto) [place] % (Auto) Lymph # (Auto) [place] # (Auto) Eos # (Auto) Baso # (Auto) Seg Neutrophils % Seg Neuts % (Manual) Lymphocytes % (Manual) Monocytes % (Manual) Basophils % (Manual) Nucleated RBC % Seg Neutrophils # Seg Neutrophils # Man Lymphocytes # (Manual) Monocytes # (Manual) Eosinophils # (Manual) Basophils # (Manual) PT INR APTT D-Dimer Heparin Anti-Xa Level 0.78 H ABG pH POC ABG pCO2 POC ABG pO2 ABG pO2 ABG HCO3 ABG O2 Saturation ABG Base Excess ABG Hemoglobin ABG Oxyhemoglobin ABG Sodium ABG Potassium ABG Chloride ABG Glucose Oxyhemoglobin Carboxyhemoglobin Sodium Potassium Chloride Carbon Dioxide BUN Creatinine Glucose POC Glucose 150 H 173 H Lactic Acid Calcium Phosphorus Magnesium Ferritin Direct Bilirubin AST ALT Alkaline Phosphatase Lactate Dehydrogenase Total Creatine Kinase C-Reactive Protein Total Protein Albumin Triglycerides Arterial Blood Glucose Arterial Blood Ionized Calcium Urine Creatinine Urine Chloride Vancomycin Trough Coronavirus (PCR) Crossmatch 06/22/20 06/22/20 06/22/20 04:00 05:04 05:30 WBC 33.9 H RBC Hgb 11.7 L Hct 35.2 L MCHC RDW 15.8 H Plt Count Lymph % (Auto) [place] % (Auto) Lymph # (Auto) [place] # (Auto) Eos # (Auto) Baso # (Auto) Seg Neutrophils % Seg Neuts % (Manual) 93.0 H Lymphocytes % (Manual) 5.0 L Monocytes % (Manual) Basophils % (Manual) Nucleated RBC % Seg Neutrophils # Seg Neutrophils # Man 31.5 H Lymphocytes # (Manual) Monocytes # (Manual) Eosinophils # (Manual) Basophils # (Manual) PT INR APTT D-Dimer Heparin Anti-Xa Level ABG pH 7.169 L POC ABG pCO2 POC ABG pO2 ABG pO2 ABG HCO3 ABG O2 Saturation ABG Base Excess ABG Hemoglobin ABG Oxyhemoglobin ABG Sodium ABG Potassium 5.1 H ABG Chloride 112.0 H ABG Glucose 186 H Oxyhemoglobin Carboxyhemoglobin 0.3 L Sodium Potassium Chloride Carbon Dioxide BUN Creatinine Glucose POC Glucose 161 H Lactic Acid Calcium Phosphorus Magnesium Ferritin Direct Bilirubin AST ALT Alkaline Phosphatase Lactate Dehydrogenase Total Creatine Kinase C-Reactive Protein Total Protein Albumin Triglycerides Arterial Blood Glucose 186 H Arterial Blood Ionized Calcium 4.1 L Urine Creatinine Urine Chloride Vancomycin Trough Coronavirus (PCR) Crossmatch 06/22/20 06/22/20 06/22/20 05:30 11:39 13:27 WBC RBC Hgb Hct MCHC RDW Plt Count Lymph % (Auto) [place] % (Auto) Lymph # (Auto) [place] # (Auto) Eos # (Auto) Baso # (Auto) Seg Neutrophils % Seg Neuts % (Manual) Lymphocytes % (Manual) Monocytes % (Manual) Basophils % (Manual) Nucleated RBC % Seg Neutrophils # Seg Neutrophils # Man Lymphocytes # (Manual) Monocytes # (Manual) Eosinophils # (Manual) Basophils # (Manual) PT INR APTT D-Dimer Heparin Anti-Xa Level ABG pH POC ABG pCO2 POC ABG pO2 ABG pO2 ABG HCO3 ABG O2 Saturation ABG Base Excess ABG Hemoglobin ABG Oxyhemoglobin ABG Sodium ABG Potassium ABG Chloride ABG Glucose Oxyhemoglobin Carboxyhemoglobin Sodium Potassium 5.7 H Chloride 111.3 H Carbon Dioxide 18 L BUN 112 H Creatinine 5.0 H Glucose 173 H POC Glucose 172 H 176 H Lactic Acid Calcium 6.7 L Phosphorus Magnesium Ferritin Direct Bilirubin AST ALT Alkaline Phosphatase Lactate Dehydrogenase Total Creatine Kinase C-Reactive Protein Total Protein Albumin Triglycerides Arterial Blood Glucose Arterial Blood Ionized Calcium Urine Creatinine Urine Chloride Vancomycin Trough Coronavirus (PCR) Crossmatch 06/22/20 06/22/20 06/22/20 14:37 17:00 17:40 WBC RBC Hgb Hct MCHC RDW Plt Count Lymph % (Auto) [place] % (Auto) Lymph # (Auto) [place] # (Auto) Eos # (Auto) Baso # (Auto) Seg Neutrophils % Seg Neuts % (Manual) Lymphocytes % (Manual) Monocytes % (Manual) Basophils % (Manual) Nucleated RBC % Seg Neutrophils # Seg Neutrophils # Man Lymphocytes # (Manual) Monocytes # (Manual) Eosinophils # (Manual) Basophils # (Manual) PT INR APTT D-Dimer Heparin Anti-Xa Level 1.32 H ABG pH POC ABG pCO2 POC ABG pO2 ABG pO2 ABG HCO3 ABG O2 Saturation ABG Base Excess ABG Hemoglobin ABG Oxyhemoglobin ABG Sodium ABG Potassium ABG Chloride ABG Glucose Oxyhemoglobin Carboxyhemoglobin Sodium Potassium Chloride Carbon Dioxide BUN Creatinine Glucose POC Glucose 171 H Lactic Acid Calcium Phosphorus Magnesium Ferritin Direct Bilirubin AST ALT Alkaline Phosphatase Lactate Dehydrogenase Total Creatine Kinase C-Reactive Protein 5.30 H Total Protein Albumin Triglycerides Arterial Blood Glucose Arterial Blood Ionized Calcium Urine Creatinine Urine Chloride Vancomycin Trough Coronavirus (PCR) Crossmatch 06/22/20 06/23/20 06/23/20 23:36 02:13 02:41 WBC RBC Hgb Hct MCHC RDW Plt Count Lymph % (Auto) [place] % (Auto) Lymph # (Auto) [place] # (Auto) Eos # (Auto) Baso # (Auto) Seg Neutrophils % Seg Neuts % (Manual) Lymphocytes % (Manual) Monocytes % (Manual) Basophils % (Manual) Nucleated RBC % Seg Neutrophils # Seg Neutrophils # Man Lymphocytes # (Manual) Monocytes # (Manual) Eosinophils # (Manual) Basophils # (Manual) PT INR APTT D-Dimer Heparin Anti-Xa Level 0.21 L ABG pH 7.318 L POC ABG pCO2 POC ABG pO2 157.5 H ABG pO2 ABG HCO3 ABG O2 Saturation ABG Base Excess ABG Hemoglobin ABG Oxyhemoglobin ABG Sodium 135.6 L ABG Potassium 4.6 H ABG Chloride 110.0 H ABG Glucose 169 H Oxyhemoglobin Carboxyhemoglobin Sodium Potassium Chloride Carbon Dioxide BUN Creatinine Glucose POC Glucose 155 H Lactic Acid Calcium Phosphorus Magnesium Ferritin Direct Bilirubin AST ALT Alkaline Phosphatase Lactate Dehydrogenase Total Creatine Kinase C-Reactive Protein Total Protein Albumin Triglycerides Arterial Blood Glucose 169 H Arterial Blood Ionized Calcium Urine Creatinine Urine Chloride Vancomycin Trough Coronavirus (PCR) Crossmatch 06/23/20 06/23/20 06/23/20 04:00 04:00 05:24 WBC 27.4 H RBC Hgb 11.3 L Hct 33.8 L MCHC RDW Plt Count Lymph % (Auto) [place] % (Auto) Lymph # (Auto) [place] # (Auto) Eos # (Auto) Baso # (Auto) Seg Neutrophils % Seg Neuts % (Manual) 93.0 H Lymphocytes % (Manual) 1.0 L Monocytes % (Manual) Basophils % (Manual) Nucleated RBC % 1.0 H Seg Neutrophils # Seg Neutrophils # Man 25.5 H Lymphocytes # (Manual) 0.3 L Monocytes # (Manual) 1.1 H Eosinophils # (Manual) Basophils # (Manual) PT INR APTT D-Dimer Heparin Anti-Xa Level ABG pH POC ABG pCO2 POC ABG pO2 ABG pO2 ABG HCO3 ABG O2 Saturation ABG Base Excess ABG Hemoglobin ABG Oxyhemoglobin ABG Sodium ABG Potassium ABG Chloride ABG Glucose Oxyhemoglobin Carboxyhemoglobin Sodium Potassium Chloride 107.6 H Carbon Dioxide 20 L BUN 100 H Creatinine 4.7 H Glucose 168 H POC Glucose 151 H Lactic Acid Calcium Phosphorus Magnesium Ferritin Direct Bilirubin AST ALT Alkaline Phosphatase Lactate Dehydrogenase Total Creatine Kinase C-Reactive Protein Total Protein Albumin Triglycerides Arterial Blood Glucose Arterial Blood Ionized Calcium Urine Creatinine Urine Chloride Vancomycin Trough Coronavirus (PCR) Crossmatch 06/23/20 06/23/20 06/23/20 11:30 17:18 23:50 WBC RBC Hgb Hct MCHC RDW Plt Count Lymph % (Auto) [place] % (Auto) Lymph # (Auto) [place] # (Auto) Eos # (Auto) Baso # (Auto) Seg Neutrophils % Seg Neuts % (Manual) Lymphocytes % (Manual) Monocytes % (Manual) Basophils % (Manual) Nucleated RBC % Seg Neutrophils # Seg Neutrophils # Man Lymphocytes # (Manual) Monocytes # (Manual) Eosinophils # (Manual) Basophils # (Manual) PT INR APTT D-Dimer Heparin Anti-Xa Level ABG pH POC ABG pCO2 POC ABG pO2 ABG pO2 ABG HCO3 ABG O2 Saturation ABG Base Excess ABG Hemoglobin ABG Oxyhemoglobin ABG Sodium ABG Potassium ABG Chloride ABG Glucose Oxyhemoglobin Carboxyhemoglobin Sodium Potassium Chloride Carbon Dioxide BUN Creatinine Glucose POC Glucose 157 H 156 H 162 H Lactic Acid Calcium Phosphorus Magnesium Ferritin Direct Bilirubin AST ALT Alkaline Phosphatase Lactate Dehydrogenase Total Creatine Kinase C-Reactive Protein Total Protein Albumin Triglycerides Arterial Blood Glucose Arterial Blood Ionized Calcium Urine Creatinine Urine Chloride Vancomycin Trough Coronavirus (PCR) Crossmatch 06/24/20 06/24/20 06/24/20 04:41 05:57 06:30 WBC 34.3 H RBC Hgb 10.9 L Hct 32.6 L MCHC RDW Plt Count Lymph % (Auto) 2.0 L [place] % (Auto) Lymph # (Auto) 0.7 L [place] # (Auto) 1.2 H Eos # (Auto) Baso # (Auto) Seg Neutrophils % Seg Neuts % (Manual) 96.0 H Lymphocytes % (Manual) 3.0 L Monocytes % (Manual) Basophils % (Manual) Nucleated RBC % Seg Neutrophils # 32.3 H Seg Neutrophils # Man 32.9 H Lymphocytes # (Manual) 1.0 L Monocytes # (Manual) Eosinophils # (Manual) Basophils # (Manual) PT INR APTT D-Dimer Heparin Anti-Xa Level ABG pH POC ABG pCO2 POC ABG pO2 71.1 L ABG pO2 ABG HCO3 ABG O2 Saturation ABG Base Excess ABG Hemoglobin ABG Oxyhemoglobin 92.4 L ABG Sodium 115.6 L ABG Potassium ABG Chloride ABG Glucose 159 H Oxyhemoglobin Carboxyhemoglobin Sodium Potassium Chloride Carbon Dioxide BUN Creatinine Glucose POC Glucose 143 H Lactic Acid Calcium Phosphorus Magnesium Ferritin Direct Bilirubin AST ALT Alkaline Phosphatase Lactate Dehydrogenase Total Creatine Kinase C-Reactive Protein Total Protein Albumin Triglycerides Arterial Blood Glucose 159 H Arterial Blood Ionized Calcium 4.2 L Urine Creatinine Urine Chloride Vancomycin Trough Coronavirus (PCR) Crossmatch 06/24/20 06/24/20 06/24/20 07:03 09:37 11:56 WBC RBC Hgb Hct MCHC RDW Plt Count Lymph % (Auto) [place] % (Auto) Lymph # (Auto) [place] # (Auto) Eos # (Auto) Baso # (Auto) Seg Neutrophils % Seg Neuts % (Manual) Lymphocytes % (Manual) Monocytes % (Manual) Basophils % (Manual) Nucleated RBC % Seg Neutrophils # Seg Neutrophils # Man Lymphocytes # (Manual) Monocytes # (Manual) Eosinophils # (Manual) Basophils # (Manual) PT INR APTT D-Dimer Heparin Anti-Xa Level 0.26 L ABG pH POC ABG pCO2 POC ABG pO2 ABG pO2 ABG HCO3 ABG O2 Saturation ABG Base Excess ABG Hemoglobin ABG Oxyhemoglobin ABG Sodium ABG Potassium ABG Chloride ABG Glucose Oxyhemoglobin Carboxyhemoglobin Sodium Potassium 5.1 H Chloride Carbon Dioxide BUN 103 H Creatinine 5.0 H Glucose 163 H POC Glucose 149 H Lactic Acid Calcium 7.6 L Phosphorus Magnesium Ferritin Direct Bilirubin AST ALT Alkaline Phosphatase Lactate Dehydrogenase Total Creatine Kinase C-Reactive Protein Total Protein Albumin Triglycerides Arterial Blood Glucose Arterial Blood Ionized Calcium Urine Creatinine Urine Chloride Vancomycin Trough Coronavirus (PCR) Crossmatch 06/24/20 06/25/20 06/25/20 18:09 01:05 03:00 WBC RBC Hgb 10.6 L Hct 32.1 L MCHC RDW Plt Count Lymph % (Auto) [place] % (Auto) Lymph # (Auto) [place] # (Auto) Eos # (Auto) Baso # (Auto) Seg Neutrophils % Seg Neuts % (Manual) Lymphocytes % (Manual) Monocytes % (Manual) Basophils % (Manual) Nucleated RBC % Seg Neutrophils # Seg Neutrophils # Man Lymphocytes # (Manual) Monocytes # (Manual) Eosinophils # (Manual) Basophils # (Manual) PT INR APTT D-Dimer Heparin Anti-Xa Level ABG pH POC ABG pCO2 POC ABG pO2 ABG pO2 ABG HCO3 ABG O2 Saturation ABG Base Excess ABG Hemoglobin ABG Oxyhemoglobin ABG Sodium ABG Potassium ABG Chloride ABG Glucose Oxyhemoglobin Carboxyhemoglobin Sodium Potassium Chloride Carbon Dioxide BUN Creatinine Glucose POC Glucose 141 H 137 H Lactic Acid Calcium Phosphorus Magnesium Ferritin Direct Bilirubin AST ALT Alkaline Phosphatase Lactate Dehydrogenase Total Creatine Kinase C-Reactive Protein Total Protein Albumin Triglycerides Arterial Blood Glucose Arterial Blood Ionized Calcium Urine Creatinine Urine Chloride Vancomycin Trough Coronavirus (PCR) Crossmatch 06/25/20 06/25/20 06/25/20 03:48 05:17 12:08 WBC RBC Hgb Hct MCHC RDW Plt Count Lymph % (Auto) [place] % (Auto) Lymph # (Auto) [place] # (Auto) Eos # (Auto) Baso # (Auto) Seg Neutrophils % Seg Neuts % (Manual) Lymphocytes % (Manual) Monocytes % (Manual) Basophils % (Manual) Nucleated RBC % Seg Neutrophils # Seg Neutrophils # Man Lymphocytes # (Manual) Monocytes # (Manual) Eosinophils # (Manual) Basophils # (Manual) PT INR APTT D-Dimer Heparin Anti-Xa Level ABG pH POC ABG pCO2 29.4 L POC ABG pO2 67.1 L ABG pO2 ABG HCO3 ABG O2 Saturation ABG Base Excess ABG Hemoglobin 11.5 L ABG Oxyhemoglobin ABG Sodium 124.1 L ABG Potassium 4.6 H ABG Chloride ABG Glucose 159 H Oxyhemoglobin Carboxyhemoglobin Sodium Potassium Chloride Carbon Dioxide BUN Creatinine Glucose POC Glucose 149 H 150 H Lactic Acid Calcium Phosphorus Magnesium Ferritin Direct Bilirubin AST ALT Alkaline Phosphatase Lactate Dehydrogenase Total Creatine Kinase C-Reactive Protein Total Protein Albumin Triglycerides Arterial Blood Glucose 159 H Arterial Blood Ionized Calcium 4.2 L Urine Creatinine Urine Chloride Vancomycin Trough Coronavirus (PCR) Crossmatch 06/25/20 06/25/20 06/25/20 16:27 16:35 17:27 WBC RBC Hgb Hct MCHC RDW Plt Count Lymph % (Auto) [place] % (Auto) Lymph # (Auto) [place] # (Auto) Eos # (Auto) Baso # (Auto) Seg Neutrophils % Seg Neuts % (Manual) Lymphocytes % (Manual) Monocytes % (Manual) Basophils % (Manual) Nucleated RBC % Seg Neutrophils # Seg Neutrophils # Man Lymphocytes # (Manual) Monocytes # (Manual) Eosinophils # (Manual) Basophils # (Manual) PT INR APTT D-Dimer Heparin Anti-Xa Level < 0.10 L ABG pH POC ABG pCO2 POC ABG pO2 ABG pO2 ABG HCO3 ABG O2 Saturation ABG Base Excess ABG Hemoglobin ABG Oxyhemoglobin ABG Sodium ABG Potassium ABG Chloride ABG Glucose Oxyhemoglobin Carboxyhemoglobin Sodium Potassium Chloride Carbon Dioxide BUN Creatinine Glucose POC Glucose 143 H 156 H Lactic Acid Calcium Phosphorus Magnesium Ferritin Direct Bilirubin AST ALT Alkaline Phosphatase Lactate Dehydrogenase Total Creatine Kinase C-Reactive Protein Total Protein Albumin Triglycerides Arterial Blood Glucose Arterial Blood Ionized Calcium Urine Creatinine Urine Chloride Vancomycin Trough Coronavirus (PCR) Crossmatch 06/25/20 06/25/20 06/25/20 20:00 20:55 23:10 WBC 32.7 H RBC 3.06 L Hgb 9.0 L 9.5 L Hct 26.7 L 28.6 L MCHC RDW Plt Count Lymph % (Auto) [place] % (Auto) Lymph # (Auto) [place] # (Auto) Eos # (Auto) Baso # (Auto) Seg Neutrophils % Seg Neuts % (Manual) Lymphocytes % (Manual) 2.0 L Monocytes % (Manual) Basophils % (Manual) Nucleated RBC % Seg Neutrophils # Seg Neutrophils # Man 30.7 H Lymphocytes # (Manual) 0.7 L Monocytes # (Manual) 1.3 H Eosinophils # (Manual) Basophils # (Manual) PT 17.7 H INR 1.47 H APTT 65.8 H* D-Dimer Heparin Anti-Xa Level ABG pH POC ABG pCO2 POC ABG pO2 ABG pO2 ABG HCO3 ABG O2 Saturation ABG Base Excess ABG Hemoglobin ABG Oxyhemoglobin ABG Sodium ABG Potassium ABG Chloride ABG Glucose Oxyhemoglobin Carboxyhemoglobin Sodium Potassium Chloride Carbon Dioxide BUN Creatinine Glucose POC Glucose Lactic Acid Calcium Phosphorus Magnesium Ferritin Direct Bilirubin AST ALT Alkaline Phosphatase Lactate Dehydrogenase Total Creatine Kinase C-Reactive Protein Total Protein Albumin Triglycerides Arterial Blood Glucose Arterial Blood Ionized Calcium Urine Creatinine Urine Chloride Vancomycin Trough Coronavirus (PCR) Crossmatch 06/25/20 06/26/20 06/26/20 23:14 01:30 03:25 WBC RBC Hgb Hct MCHC RDW Plt Count Lymph % (Auto) [place] % (Auto) Lymph # (Auto) [place] # (Auto) Eos # (Auto) Baso # (Auto) Seg Neutrophils % Seg Neuts % (Manual) Lymphocytes % (Manual) Monocytes % (Manual) Basophils % (Manual) Nucleated RBC % Seg Neutrophils # Seg Neutrophils # Man Lymphocytes # (Manual) Monocytes # (Manual) Eosinophils # (Manual) Basophils # (Manual) PT INR APTT D-Dimer Heparin Anti-Xa Level < 0.10 L ABG pH POC ABG pCO2 POC ABG pO2 ABG pO2 ABG HCO3 ABG O2 Saturation ABG Base Excess ABG Hemoglobin 11.8 L ABG Oxyhemoglobin ABG Sodium 127.1 L ABG Potassium 5.4 H ABG Chloride ABG Glucose 155 H Oxyhemoglobin Carboxyhemoglobin 0.3 L Sodium Potassium Chloride Carbon Dioxide BUN Creatinine Glucose POC Glucose 148 H Lactic Acid Calcium Phosphorus Magnesium Ferritin Direct Bilirubin AST ALT Alkaline Phosphatase Lactate Dehydrogenase Total Creatine Kinase C-Reactive Protein Total Protein Albumin Triglycerides Arterial Blood Glucose 155 H Arterial Blood Ionized Calcium 4.2 L Urine Creatinine Urine Chloride Vancomycin Trough Coronavirus (PCR) Crossmatch 06/26/20 06/26/20 06/26/20 03:59 05:14 05:47 WBC 36.5 H RBC 3.26 L Hgb 9.7 L Hct 28.2 L MCHC RDW Plt Count Lymph % (Auto) [place] % (Auto) Lymph # (Auto) [place] # (Auto) Eos # (Auto) Baso # (Auto) Seg Neutrophils % Seg Neuts % (Manual) 92.0 H Lymphocytes % (Manual) 4.0 L Monocytes % (Manual) Basophils % (Manual) Nucleated RBC % Seg Neutrophils # Seg Neutrophils # Man 33.6 H Lymphocytes # (Manual) Monocytes # (Manual) Eosinophils # (Manual) Basophils # (Manual) PT INR APTT D-Dimer Heparin Anti-Xa Level ABG pH POC ABG pCO2 POC ABG pO2 ABG pO2 ABG HCO3 ABG O2 Saturation ABG Base Excess ABG Hemoglobin ABG Oxyhemoglobin ABG Sodium ABG Potassium ABG Chloride ABG Glucose Oxyhemoglobin Carboxyhemoglobin Sodium Potassium 5.9 H Chloride Carbon Dioxide 20 L BUN 144 H Creatinine 6.4 H Glucose 149 H POC Glucose 128 H Lactic Acid Calcium 7.6 L Phosphorus Magnesium Ferritin Direct Bilirubin AST ALT Alkaline Phosphatase Lactate Dehydrogenase Total Creatine Kinase C-Reactive Protein Total Protein Albumin Triglycerides Arterial Blood Glucose Arterial Blood Ionized Calcium Urine Creatinine Urine Chloride Vancomycin Trough Coronavirus (PCR) Crossmatch 06/26/20 06/26/20 06/26/20 05:47 12:47 17:42 WBC RBC Hgb Hct MCHC RDW Plt Count Lymph % (Auto) [place] % (Auto) Lymph # (Auto) [place] # (Auto) Eos # (Auto) Baso # (Auto) Seg Neutrophils % Seg Neuts % (Manual) Lymphocytes % (Manual) Monocytes % (Manual) Basophils % (Manual) Nucleated RBC % Seg Neutrophils # Seg Neutrophils # Man Lymphocytes # (Manual) Monocytes # (Manual) Eosinophils # (Manual) Basophils # (Manual) PT 17.4 H INR 1.44 H APTT D-Dimer Heparin Anti-Xa Level ABG pH POC ABG pCO2 POC ABG pO2 ABG pO2 ABG HCO3 ABG O2 Saturation ABG Base Excess ABG Hemoglobin ABG Oxyhemoglobin ABG Sodium ABG Potassium ABG Chloride ABG Glucose Oxyhemoglobin Carboxyhemoglobin Sodium Potassium Chloride Carbon Dioxide BUN Creatinine Glucose POC Glucose 124 H 127 H Lactic Acid Calcium Phosphorus Magnesium Ferritin Direct Bilirubin AST ALT Alkaline Phosphatase Lactate Dehydrogenase Total Creatine Kinase C-Reactive Protein Total Protein Albumin Triglycerides Arterial Blood Glucose Arterial Blood Ionized Calcium Urine Creatinine Urine Chloride Vancomycin Trough Coronavirus (PCR) Crossmatch 06/26/20 06/27/20 06/27/20 23:30 03:32 04:00 WBC RBC Hgb 8.7 L Hct 26.4 L MCHC RDW Plt Count Lymph % (Auto) [place] % (Auto) Lymph # (Auto) [place] # (Auto) Eos # (Auto) Baso # (Auto) Seg Neutrophils % Seg Neuts % (Manual) Lymphocytes % (Manual) Monocytes % (Manual) Basophils % (Manual) Nucleated RBC % Seg Neutrophils # Seg Neutrophils # Man Lymphocytes # (Manual) Monocytes # (Manual) Eosinophils # (Manual) Basophils # (Manual) PT INR APTT D-Dimer Heparin Anti-Xa Level ABG pH 7.298 L POC ABG pCO2 POC ABG pO2 ABG pO2 ABG HCO3 ABG O2 Saturation ABG Base Excess ABG Hemoglobin 9.6 L ABG Oxyhemoglobin ABG Sodium 124.4 L ABG Potassium 6.6 H ABG Chloride ABG Glucose 136 H Oxyhemoglobin Carboxyhemoglobin Sodium Potassium Chloride Carbon Dioxide BUN Creatinine Glucose POC Glucose 123 H Lactic Acid Calcium Phosphorus Magnesium Ferritin Direct Bilirubin AST ALT Alkaline Phosphatase Lactate Dehydrogenase Total Creatine Kinase C-Reactive Protein Total Protein Albumin Triglycerides Arterial Blood Glucose 136 H Arterial Blood Ionized Calcium 4.1 L Urine Creatinine Urine Chloride Vancomycin Trough Coronavirus (PCR) Crossmatch 06/27/20 06/27/20 06/27/20 05:26 10:14 11:58 WBC RBC Hgb Hct MCHC RDW Plt Count Lymph % (Auto) [place] % (Auto) Lymph # (Auto) [place] # (Auto) Eos # (Auto) Baso # (Auto) Seg Neutrophils % Seg Neuts % (Manual) Lymphocytes % (Manual) Monocytes % (Manual) Basophils % (Manual) Nucleated RBC % Seg Neutrophils # Seg Neutrophils # Man Lymphocytes # (Manual) Monocytes # (Manual) Eosinophils # (Manual) Basophils # (Manual) PT INR APTT D-Dimer Heparin Anti-Xa Level ABG pH POC ABG pCO2 POC ABG pO2 ABG pO2 ABG HCO3 ABG O2 Saturation ABG Base Excess ABG Hemoglobin ABG Oxyhemoglobin ABG Sodium ABG Potassium ABG Chloride ABG Glucose Oxyhemoglobin Carboxyhemoglobin Sodium 136 L Potassium 7.0 H* Chloride 97.8 L Carbon Dioxide BUN 172 H Creatinine 7.4 H Glucose 129 H POC Glucose 124 H 115 H Lactic Acid Calcium 7.6 L Phosphorus Magnesium Ferritin Direct Bilirubin AST ALT Alkaline Phosphatase Lactate Dehydrogenase Total Creatine Kinase C-Reactive Protein Total Protein Albumin Triglycerides Arterial Blood Glucose Arterial Blood Ionized Calcium Urine Creatinine Urine Chloride Vancomycin Trough Coronavirus (PCR) Crossmatch 06/27/20 06/27/20 06/27/20 17:32 18:30 23:24 WBC RBC Hgb Hct MCHC RDW Plt Count Lymph % (Auto) [place] % (Auto) Lymph # (Auto) [place] # (Auto) Eos # (Auto) Baso # (Auto) Seg Neutrophils % Seg Neuts % (Manual) Lymphocytes % (Manual) Monocytes % (Manual) Basophils % (Manual) Nucleated RBC % Seg Neutrophils # Seg Neutrophils # Man Lymphocytes # (Manual) Monocytes # (Manual) Eosinophils # (Manual) Basophils # (Manual) PT INR APTT D-Dimer Heparin Anti-Xa Level ABG pH POC ABG pCO2 POC ABG pO2 ABG pO2 ABG HCO3 ABG O2 Saturation ABG Base Excess ABG Hemoglobin ABG Oxyhemoglobin ABG Sodium ABG Potassium ABG Chloride ABG Glucose Oxyhemoglobin Carboxyhemoglobin Sodium Potassium 7.3 H* Chloride Carbon Dioxide BUN Creatinine Glucose POC Glucose 122 H 116 H Lactic Acid Calcium Phosphorus Magnesium Ferritin Direct Bilirubin AST ALT Alkaline Phosphatase Lactate Dehydrogenase Total Creatine Kinase C-Reactive Protein Total Protein Albumin Triglycerides Arterial Blood Glucose Arterial Blood Ionized Calcium Urine Creatinine Urine Chloride Vancomycin Trough Coronavirus (PCR) Crossmatch 06/28/20 06/28/20 06/28/20 00:00 02:16 05:37 WBC RBC Hgb Hct MCHC RDW Plt Count Lymph % (Auto) [place] % (Auto) Lymph # (Auto) [place] # (Auto) Eos # (Auto) Baso # (Auto) Seg Neutrophils % Seg Neuts % (Manual) Lymphocytes % (Manual) Monocytes % (Manual) Basophils % (Manual) Nucleated RBC % Seg Neutrophils # Seg Neutrophils # Man Lymphocytes # (Manual) Monocytes # (Manual) Eosinophils # (Manual) Basophils # (Manual) PT INR APTT D-Dimer Heparin Anti-Xa Level ABG pH POC ABG pCO2 POC ABG pO2 79.0 L ABG pO2 ABG HCO3 ABG O2 Saturation ABG Base Excess ABG Hemoglobin 11.7 L ABG Oxyhemoglobin ABG Sodium 128.1 L ABG Potassium 6.6 H ABG Chloride ABG Glucose 124 H Oxyhemoglobin Carboxyhemoglobin Sodium Potassium 7.3 H* Chloride Carbon Dioxide BUN Creatinine Glucose POC Glucose 115 H Lactic Acid Calcium Phosphorus Magnesium Ferritin Direct Bilirubin AST ALT Alkaline Phosphatase Lactate Dehydrogenase Total Creatine Kinase C-Reactive Protein Total Protein Albumin Triglycerides Arterial Blood Glucose 124 H Arterial Blood Ionized Calcium 4.2 L Urine Creatinine Urine Chloride Vancomycin Trough Coronavirus (PCR) Crossmatch 06/28/20 06/28/20 06/28/20 10:03 10:03 11:51 WBC 33.6 H RBC 3.03 L Hgb 8.9 L Hct 27.0 L MCHC RDW Plt Count Lymph % (Auto) [place] % (Auto) Lymph # (Auto) [place] # (Auto) Eos # (Auto) Baso # (Auto) Seg Neutrophils % Seg Neuts % (Manual) Lymphocytes % (Manual) Monocytes % (Manual) Basophils % (Manual) Nucleated RBC % Seg Neutrophils # Seg Neutrophils # Man Lymphocytes # (Manual) Monocytes # (Manual) Eosinophils # (Manual) Basophils # (Manual) PT INR APTT D-Dimer Heparin Anti-Xa Level ABG pH POC ABG pCO2 POC ABG pO2 ABG pO2 ABG HCO3 ABG O2 Saturation ABG Base Excess ABG Hemoglobin ABG Oxyhemoglobin ABG Sodium ABG Potassium ABG Chloride ABG Glucose Oxyhemoglobin Carboxyhemoglobin Sodium 136 L Potassium 6.5 H* Chloride Carbon Dioxide 20 L BUN 129 H Creatinine 5.8 H Glucose 113 H POC Glucose 107 H Lactic Acid Calcium 7.6 L Phosphorus Magnesium Ferritin Direct Bilirubin AST ALT Alkaline Phosphatase Lactate Dehydrogenase Total Creatine Kinase C-Reactive Protein Total Protein Albumin Triglycerides Arterial Blood Glucose Arterial Blood Ionized Calcium Urine Creatinine Urine Chloride Vancomycin Trough Coronavirus (PCR) Crossmatch 06/28/20 06/28/20 06/29/20 17:45 Unknown 03:15 WBC RBC Hgb Hct MCHC RDW Plt Count Lymph % (Auto) [place] % (Auto) Lymph # (Auto) [place] # (Auto) Eos # (Auto) Baso # (Auto) Seg Neutrophils % Seg Neuts % (Manual) Lymphocytes % (Manual) Monocytes % (Manual) Basophils % (Manual) Nucleated RBC % Seg Neutrophils # Seg Neutrophils # Man Lymphocytes # (Manual) Monocytes # (Manual) Eosinophils # (Manual) Basophils # (Manual) PT INR APTT D-Dimer Heparin Anti-Xa Level ABG pH POC ABG pCO2 POC ABG pO2 ABG pO2 ABG HCO3 ABG O2 Saturation ABG Base Excess ABG Hemoglobin 7.8 L ABG Oxyhemoglobin ABG Sodium 127.4 L ABG Potassium 5.5 H ABG Chloride 97.0 L ABG Glucose 96 H Oxyhemoglobin Carboxyhemoglobin Sodium Potassium 5.4 H Chloride Carbon Dioxide BUN Creatinine Glucose POC Glucose 117 H Lactic Acid Calcium Phosphorus Magnesium Ferritin Direct Bilirubin AST ALT Alkaline Phosphatase Lactate Dehydrogenase Total Creatine Kinase C-Reactive Protein Total Protein Albumin Triglycerides Arterial Blood Glucose 96 H Arterial Blood Ionized Calcium 4.0 L Urine Creatinine Urine Chloride Vancomycin Trough Coronavirus (PCR) Crossmatch 06/29/20 06/29/20 06/29/20 03:45 Unknown Unknown WBC RBC Hgb Hct MCHC RDW Plt Count Lymph % (Auto) [place] % (Auto) Lymph # (Auto) [place] # (Auto) Eos # (Auto) Baso # (Auto) Seg Neutrophils % Seg Neuts % (Manual) Lymphocytes % (Manual) Monocytes % (Manual) Basophils % (Manual) Nucleated RBC % Seg Neutrophils # Seg Neutrophils # Man Lymphocytes # (Manual) Monocytes # (Manual) Eosinophils # (Manual) Basophils # (Manual) PT INR APTT D-Dimer Heparin Anti-Xa Level ABG pH POC ABG pCO2 POC ABG pO2 ABG pO2 ABG HCO3 ABG O2 Saturation ABG Base Excess ABG Hemoglobin ABG Oxyhemoglobin ABG Sodium ABG Potassium ABG Chloride ABG Glucose Oxyhemoglobin Carboxyhemoglobin Sodium 135 L Potassium 6.0 H 6.1 H* Chloride 94.8 L Carbon Dioxide BUN 109 H 114 H Creatinine 5.5 H Glucose POC Glucose Lactic Acid Calcium 7.4 L Phosphorus Magnesium Ferritin Direct Bilirubin AST 47 H ALT Alkaline Phosphatase Lactate Dehydrogenase Total Creatine Kinase C-Reactive Protein Total Protein 4.9 L Albumin 2.2 L Triglycerides Arterial Blood Glucose Arterial Blood Ionized Calcium Urine Creatinine Urine Chloride Vancomycin Trough Coronavirus (PCR) Crossmatch 06/29/20 06/29/20 06/30/20 Unknown Unknown 03:32 WBC 20.7 H RBC 2.57 L Hgb 7.6 L Hct 23.0 L MCHC RDW Plt Count Lymph % (Auto) [place] % (Auto) Lymph # (Auto) [place] # (Auto) Eos # (Auto) Baso # (Auto) Seg Neutrophils % Seg Neuts % (Manual) Lymphocytes % (Manual) Monocytes % (Manual) Basophils % (Manual) Nucleated RBC % Seg Neutrophils # Seg Neutrophils # Man Lymphocytes # (Manual) Monocytes # (Manual) Eosinophils # (Manual) Basophils # (Manual) PT INR APTT D-Dimer Heparin Anti-Xa Level ABG pH POC ABG pCO2 POC ABG pO2 ABG pO2 ABG HCO3 ABG O2 Saturation ABG Base Excess ABG Hemoglobin 11.4 L ABG Oxyhemoglobin ABG Sodium 130.1 L ABG Potassium 5.0 H ABG Chloride ABG Glucose Oxyhemoglobin Carboxyhemoglobin Sodium Potassium Chloride Carbon Dioxide BUN Creatinine Glucose POC Glucose Lactic Acid Calcium Phosphorus Magnesium Ferritin Direct Bilirubin AST ALT Alkaline Phosphatase Lactate Dehydrogenase Total Creatine Kinase 618 H C-Reactive Protein Total Protein Albumin Triglycerides Arterial Blood Glucose Arterial Blood Ionized Calcium 3.9 L Urine Creatinine Urine Chloride Vancomycin Trough Coronavirus (PCR) Crossmatch 06/30/20 06/30/20 06/30/20 03:50 03:50 11:39 WBC 13.1 H RBC Hgb Hct MCHC RDW Plt Count Lymph % (Auto) [place] % (Auto) Lymph # (Auto) [place] # (Auto) Eos # (Auto) Baso # (Auto) Seg Neutrophils % Seg Neuts % (Manual) 95.0 H Lymphocytes % (Manual) 3.0 L Monocytes % (Manual) Basophils % (Manual) Nucleated RBC % Seg Neutrophils # Seg Neutrophils # Man 12.4 H Lymphocytes # (Manual) 0.4 L Monocytes # (Manual) Eosinophils # (Manual) Basophils # (Manual) PT INR APTT D-Dimer Heparin Anti-Xa Level ABG pH POC ABG pCO2 POC ABG pO2 ABG pO2 ABG HCO3 ABG O2 Saturation ABG Base Excess ABG Hemoglobin ABG Oxyhemoglobin ABG Sodium ABG Potassium ABG Chloride ABG Glucose Oxyhemoglobin Carboxyhemoglobin Sodium 135 L Potassium 5.4 H D Chloride 93.6 L Carbon Dioxide BUN 85 H Creatinine 4.6 H Glucose POC Glucose 111 H Lactic Acid Calcium 7.1 L Phosphorus 9.40 H Magnesium Ferritin Direct Bilirubin AST ALT Alkaline Phosphatase Lactate Dehydrogenase Total Creatine Kinase C-Reactive Protein Total Protein Albumin Triglycerides Arterial Blood Glucose Arterial Blood Ionized Calcium Urine Creatinine Urine Chloride Vancomycin Trough Coronavirus (PCR) Crossmatch 06/30/20 06/30/20 07/01/20 13:12 Unknown 03:19 WBC RBC Hgb 7.8 L D Hct 23.2 L D MCHC RDW Plt Count Lymph % (Auto) [place] % (Auto) Lymph # (Auto) [place] # (Auto) Eos # (Auto) Baso # (Auto) Seg Neutrophils % Seg Neuts % (Manual) Lymphocytes % (Manual) Monocytes % (Manual) Basophils % (Manual) Nucleated RBC % Seg Neutrophils # Seg Neutrophils # Man Lymphocytes # (Manual) Monocytes # (Manual) Eosinophils # (Manual) Basophils # (Manual) PT INR APTT D-Dimer Heparin Anti-Xa Level ABG pH 7.461 H POC ABG pCO2 POC ABG pO2 77.2 L ABG pO2 ABG HCO3 ABG O2 Saturation ABG Base Excess ABG Hemoglobin 6.9 L ABG Oxyhemoglobin ABG Sodium 128.5 L ABG Potassium ABG Chloride 97.0 L ABG Glucose Oxyhemoglobin Carboxyhemoglobin Sodium Potassium Chloride Carbon Dioxide BUN Creatinine Glucose POC Glucose Lactic Acid Calcium Phosphorus Magnesium Ferritin Direct Bilirubin AST ALT Alkaline Phosphatase Lactate Dehydrogenase Total Creatine Kinase C-Reactive Protein Total Protein Albumin Triglycerides Arterial Blood Glucose Arterial Blood Ionized Calcium 3.7 L Urine Creatinine Urine Chloride Vancomycin Trough Coronavirus (PCR) Positive A Crossmatch 07/01/20 07/01/20 07/01/20 06:00 06:00 11:04 WBC 16.7 H RBC 2.16 L Hgb 6.4 L Hct 19.2 L* MCHC RDW Plt Count Lymph % (Auto) [place] % (Auto) Lymph # (Auto) [place] # (Auto) Eos # (Auto) Baso # (Auto) Seg Neutrophils % Seg Neuts % (Manual) Lymphocytes % (Manual) Monocytes % (Manual) Basophils % (Manual) Nucleated RBC % Seg Neutrophils # Seg Neutrophils # Man Lymphocytes # (Manual) Monocytes # (Manual) Eosinophils # (Manual) Basophils # (Manual) PT INR APTT D-Dimer Heparin Anti-Xa Level ABG pH POC ABG pCO2 POC ABG pO2 ABG pO2 ABG HCO3 ABG O2 Saturation ABG Base Excess ABG Hemoglobin ABG Oxyhemoglobin ABG Sodium ABG Potassium ABG Chloride ABG Glucose Oxyhemoglobin Carboxyhemoglobin Sodium 136 L Potassium Chloride 95.8 L Carbon Dioxide BUN 72 H Creatinine 4.3 H Glucose POC Glucose Lactic Acid Calcium 6.7 L Phosphorus Magnesium Ferritin Direct Bilirubin AST ALT Alkaline Phosphatase Lactate Dehydrogenase Total Creatine Kinase C-Reactive Protein Total Protein Albumin Triglycerides 250 H Arterial Blood Glucose Arterial Blood Ionized Calcium Urine Creatinine Urine Chloride Vancomycin Trough Coronavirus (PCR) Crossmatch See Detail 07/02/20 07/02/20 07/02/20 04:44 06:00 11:33 WBC 14.6 H RBC 2.47 L Hgb 7.4 L Hct 21.8 L MCHC RDW Plt Count Lymph % (Auto) [place] % (Auto) Lymph # (Auto) [place] # (Auto) Eos # (Auto) Baso # (Auto) Seg Neutrophils % Seg Neuts % (Manual) Lymphocytes % (Manual) Monocytes % (Manual) Basophils % (Manual) Nucleated RBC % Seg Neutrophils # Seg Neutrophils # Man Lymphocytes # (Manual) Monocytes # (Manual) Eosinophils # (Manual) Basophils # (Manual) PT INR APTT D-Dimer Heparin Anti-Xa Level ABG pH 7.457 H POC ABG pCO2 POC ABG pO2 79.4 L ABG pO2 ABG HCO3 ABG O2 Saturation ABG Base Excess ABG Hemoglobin 8.5 L ABG Oxyhemoglobin ABG Sodium 128.4 L ABG Potassium ABG Chloride 97.0 L ABG Glucose 100 H Oxyhemoglobin Carboxyhemoglobin Sodium 133 L Potassium 5.2 H Chloride 93.3 L Carbon Dioxide BUN 66 H Creatinine 4.1 H Glucose 102 H POC Glucose Lactic Acid Calcium 7.2 L Phosphorus Magnesium Ferritin Direct Bilirubin AST ALT Alkaline Phosphatase Lactate Dehydrogenase Total Creatine Kinase C-Reactive Protein Total Protein Albumin Triglycerides Arterial Blood Glucose 100 H Arterial Blood Ionized Calcium 3.9 L Urine Creatinine Urine Chloride Vancomycin Trough Coronavirus (PCR) Crossmatch 07/02/20 07/03/20 07/03/20 11:33 03:54 09:15 WBC 16.6 H RBC 2.44 L Hgb 7.3 L Hct 21.4 L MCHC RDW Plt Count Lymph % (Auto) [place] % (Auto) Lymph # (Auto) [place] # (Auto) Eos # (Auto) Baso # (Auto) Seg Neutrophils % Seg Neuts % (Manual) Lymphocytes % (Manual) Monocytes % (Manual) Basophils % (Manual) Nucleated RBC % Seg Neutrophils # Seg Neutrophils # Man Lymphocytes # (Manual) Monocytes # (Manual) Eosinophils # (Manual) Basophils # (Manual) PT INR APTT D-Dimer Heparin Anti-Xa Level ABG pH POC ABG pCO2 POC ABG pO2 66.1 L ABG pO2 ABG HCO3 ABG O2 Saturation ABG Base Excess ABG Hemoglobin 8.0 L ABG Oxyhemoglobin ABG Sodium 124.6 L ABG Potassium 5.5 H ABG Chloride 96.0 L ABG Glucose 111 H Oxyhemoglobin Carboxyhemoglobin Sodium Potassium Chloride Carbon Dioxide BUN Creatinine Glucose POC Glucose Lactic Acid Calcium Phosphorus Magnesium Ferritin Direct Bilirubin 0.7 H AST 94 H ALT 60 H Alkaline Phosphatase Lactate Dehydrogenase Total Creatine Kinase C-Reactive Protein Total Protein 4.4 L Albumin 1.9 L Triglycerides Arterial Blood Glucose 111 H Arterial Blood Ionized Calcium 3.8 L Urine Creatinine Urine Chloride Vancomycin Trough Coronavirus (PCR) Crossmatch 07/03/20 07/03/20 07/03/20 09:15 10:10 14:50 WBC RBC Hgb Hct MCHC RDW Plt Count Lymph % (Auto) [place] % (Auto) Lymph # (Auto) [place] # (Auto) Eos # (Auto) Baso # (Auto) Seg Neutrophils % Seg Neuts % (Manual) Lymphocytes % (Manual) Monocytes % (Manual) Basophils % (Manual) Nucleated RBC % Seg Neutrophils # Seg Neutrophils # Man Lymphocytes # (Manual) Monocytes # (Manual) Eosinophils # (Manual) Basophils # (Manual) PT INR APTT D-Dimer 6608.00 H Heparin Anti-Xa Level ABG pH POC ABG pCO2 POC ABG pO2 ABG pO2 ABG HCO3 ABG O2 Saturation ABG Base Excess ABG Hemoglobin ABG Oxyhemoglobin ABG Sodium ABG Potassium ABG Chloride ABG Glucose Oxyhemoglobin Carboxyhemoglobin Sodium 133 L Potassium 6.2 H* Chloride 93.1 L Carbon Dioxide BUN 89 H Creatinine 5.1 H Glucose POC Glucose Lactic Acid Calcium 7.0 L Phosphorus Magnesium Ferritin Direct Bilirubin AST ALT Alkaline Phosphatase Lactate Dehydrogenase Total Creatine Kinase C-Reactive Protein Total Protein Albumin Triglycerides Arterial Blood Glucose Arterial Blood Ionized Calcium Urine Creatinine Urine Chloride Vancomycin Trough Coronavirus (PCR) Positive A Crossmatch 07/03/20 07/03/20 07/03/20 14:50 14:50 14:50 WBC RBC Hgb Hct MCHC RDW Plt Count Lymph % (Auto) [place] % (Auto) Lymph # (Auto) [place] # (Auto) Eos # (Auto) Baso # (Auto) Seg Neutrophils % Seg Neuts % (Manual) Lymphocytes % (Manual) Monocytes % (Manual) Basophils % (Manual) Nucleated RBC % Seg Neutrophils # Seg Neutrophils # Man Lymphocytes # (Manual) Monocytes # (Manual) Eosinophils # (Manual) Basophils # (Manual) PT INR APTT D-Dimer Heparin Anti-Xa Level ABG pH POC ABG pCO2 POC ABG pO2 ABG pO2 ABG HCO3 ABG O2 Saturation ABG Base Excess ABG Hemoglobin ABG Oxyhemoglobin ABG Sodium ABG Potassium ABG Chloride ABG Glucose Oxyhemoglobin Carboxyhemoglobin Sodium Potassium Chloride Carbon Dioxide BUN Creatinine Glucose POC Glucose Lactic Acid < 0.20 L Calcium Phosphorus Magnesium Ferritin 1171.0 H Direct Bilirubin AST ALT Alkaline Phosphatase Lactate Dehydrogenase 525 H Total Creatine Kinase C-Reactive Protein 31.50 H Total Protein Albumin Triglycerides Arterial Blood Glucose Arterial Blood Ionized Calcium Urine Creatinine Urine Chloride Vancomycin Trough Coronavirus (PCR) Crossmatch 07/03/20 07/04/20 07/04/20 16:47 05:20 05:20 WBC 11.8 H RBC 2.32 L Hgb 6.7 L Hct 20.8 L MCHC RDW Plt Count Lymph % (Auto) 2.6 L [place] % (Auto) Lymph # (Auto) 0.3 L [place] # (Auto) Eos # (Auto) Baso # (Auto) Seg Neutrophils % Seg Neuts % (Manual) Lymphocytes % (Manual) Monocytes % (Manual) Basophils % (Manual) Nucleated RBC % Seg Neutrophils # 11.0 H Seg Neutrophils # Man Lymphocytes # (Manual) Monocytes # (Manual) Eosinophils # (Manual) Basophils # (Manual) PT INR APTT D-Dimer Heparin Anti-Xa Level ABG pH POC ABG pCO2 POC ABG pO2 ABG pO2 ABG HCO3 ABG O2 Saturation ABG Base Excess ABG Hemoglobin ABG Oxyhemoglobin ABG Sodium ABG Potassium ABG Chloride ABG Glucose Oxyhemoglobin Carboxyhemoglobin Sodium Potassium 6.0 H Chloride 97.8 L Carbon Dioxide BUN 75 H Creatinine 4.5 H Glucose 121 H POC Glucose 107 H Lactic Acid Calcium 7.9 L Phosphorus Magnesium Ferritin Direct Bilirubin AST ALT Alkaline Phosphatase Lactate Dehydrogenase Total Creatine Kinase C-Reactive Protein Total Protein Albumin Triglycerides Arterial Blood Glucose Arterial Blood Ionized Calcium Urine Creatinine Urine Chloride Vancomycin Trough Coronavirus (PCR) Crossmatch 07/04/20 07/04/20 07/04/20 05:20 05:50 09:25 WBC RBC Hgb Hct MCHC RDW Plt Count Lymph % (Auto) [place] % (Auto) Lymph # (Auto) [place] # (Auto) Eos # (Auto) Baso # (Auto) Seg Neutrophils % Seg Neuts % (Manual) Lymphocytes % (Manual) Monocytes % (Manual) Basophils % (Manual) Nucleated RBC % Seg Neutrophils # Seg Neutrophils # Man Lymphocytes # (Manual) Monocytes # (Manual) Eosinophils # (Manual) Basophils # (Manual) PT INR APTT D-Dimer Heparin Anti-Xa Level ABG pH 7.324 L POC ABG pCO2 POC ABG pO2 ABG pO2 98.9 H ABG HCO3 26.8 H ABG O2 Saturation ABG Base Excess ABG Hemoglobin < 5.1 L ABG Oxyhemoglobin ABG Sodium ABG Potassium ABG Chloride ABG Glucose Oxyhemoglobin Carboxyhemoglobin Sodium Potassium Chloride Carbon Dioxide BUN Creatinine Glucose POC Glucose 114 H Lactic Acid Calcium Phosphorus Magnesium Ferritin Direct Bilirubin AST ALT Alkaline Phosphatase Lactate Dehydrogenase Total Creatine Kinase C-Reactive Protein Total Protein Albumin Triglycerides Arterial Blood Glucose Arterial Blood Ionized Calcium Urine Creatinine Urine Chloride Vancomycin Trough Coronavirus (PCR) Crossmatch See Detail 07/04/20 07/04/20 07/04/20 12:33 17:41 23:04 WBC RBC Hgb Hct MCHC RDW Plt Count Lymph % (Auto) [place] % (Auto) Lymph # (Auto) [place] # (Auto) Eos # (Auto) Baso # (Auto) Seg Neutrophils % Seg Neuts % (Manual) Lymphocytes % (Manual) Monocytes % (Manual) Basophils % (Manual) Nucleated RBC % Seg Neutrophils # Seg Neutrophils # Man Lymphocytes # (Manual) Monocytes # (Manual) Eosinophils # (Manual) Basophils # (Manual) PT INR APTT D-Dimer Heparin Anti-Xa Level ABG pH POC ABG pCO2 POC ABG pO2 ABG pO2 ABG HCO3 ABG O2 Saturation ABG Base Excess ABG Hemoglobin ABG Oxyhemoglobin ABG Sodium ABG Potassium ABG Chloride ABG Glucose Oxyhemoglobin Carboxyhemoglobin Sodium Potassium Chloride Carbon Dioxide BUN Creatinine Glucose POC Glucose 119 H 109 H 116 H Lactic Acid Calcium Phosphorus Magnesium Ferritin Direct Bilirubin AST ALT Alkaline Phosphatase Lactate Dehydrogenase Total Creatine Kinase C-Reactive Protein Total Protein Albumin Triglycerides Arterial Blood Glucose Arterial Blood Ionized Calcium Urine Creatinine Urine Chloride Vancomycin Trough Coronavirus (PCR) Crossmatch 07/05/20 07/05/20 07/05/20 04:30 08:21 08:21 WBC RBC 2.77 L Hgb 7.9 L Hct 23.9 L MCHC RDW 16.7 H Plt Count Lymph % (Auto) 7.5 L [place] % (Auto) Lymph # (Auto) 0.7 L [place] # (Auto) Eos # (Auto) Baso # (Auto) Seg Neutrophils % 85.8 H Seg Neuts % (Manual) Lymphocytes % (Manual) Monocytes % (Manual) Basophils % (Manual) Nucleated RBC % Seg Neutrophils # 7.8 H Seg Neutrophils # Man Lymphocytes # (Manual) Monocytes # (Manual) Eosinophils # (Manual) Basophils # (Manual) PT INR APTT D-Dimer Heparin Anti-Xa Level ABG pH 7.295 L POC ABG pCO2 POC ABG pO2 ABG pO2 151.9 H ABG HCO3 26.8 H ABG O2 Saturation ABG Base Excess ABG Hemoglobin 7.3 L ABG Oxyhemoglobin ABG Sodium ABG Potassium ABG Chloride ABG Glucose Oxyhemoglobin Carboxyhemoglobin Sodium Potassium Chloride Carbon Dioxide BUN Creatinine Glucose POC Glucose Lactic Acid Calcium Phosphorus Magnesium Ferritin Direct Bilirubin AST ALT Alkaline Phosphatase Lactate Dehydrogenase Total Creatine Kinase C-Reactive Protein Total Protein Albumin Triglycerides 258 H Arterial Blood Glucose Arterial Blood Ionized Calcium Urine Creatinine Urine Chloride Vancomycin Trough Coronavirus (PCR) Crossmatch 07/05/20 07/05/20 07/06/20 08:21 12:12 04:29 WBC RBC Hgb Hct MCHC RDW Plt Count Lymph % (Auto) [place] % (Auto) Lymph # (Auto) [place] # (Auto) Eos # (Auto) Baso # (Auto) Seg Neutrophils % Seg Neuts % (Manual) Lymphocytes % (Manual) Monocytes % (Manual) Basophils % (Manual) Nucleated RBC % Seg Neutrophils # Seg Neutrophils # Man Lymphocytes # (Manual) Monocytes # (Manual) Eosinophils # (Manual) Basophils # (Manual) PT INR APTT D-Dimer Heparin Anti-Xa Level ABG pH 7.291 L POC ABG pCO2 51.3 H POC ABG pO2 ABG pO2 ABG HCO3 ABG O2 Saturation ABG Base Excess ABG Hemoglobin 8.5 L ABG Oxyhemoglobin ABG Sodium 129.6 L ABG Potassium 4.8 H ABG Chloride 96.0 L ABG Glucose Oxyhemoglobin Carboxyhemoglobin Sodium 133 L Potassium 5.6 H Chloride 94.4 L Carbon Dioxide BUN 80 H Creatinine 4.2 H Glucose 114 H POC Glucose 106 H Lactic Acid Calcium 7.6 L Phosphorus Magnesium Ferritin Direct Bilirubin 0.5 H AST 75 H ALT 86 H Alkaline Phosphatase Lactate Dehydrogenase Total Creatine Kinase C-Reactive Protein Total Protein 5.6 L D Albumin 1.9 L Triglycerides Arterial Blood Glucose Arterial Blood Ionized Calcium 4.2 L Urine Creatinine Urine Chloride Vancomycin Trough Coronavirus (PCR) Crossmatch 07/06/20 07/06/20 07/06/20 11:35 11:35 12:16 WBC RBC 2.54 L Hgb 7.5 L Hct 21.5 L MCHC 35 H RDW 15.7 H Plt Count Lymph % (Auto) [place] % (Auto) Lymph # (Auto) [place] # (Auto) Eos # (Auto) Baso # (Auto) Seg Neutrophils % Seg Neuts % (Manual) Lymphocytes % (Manual) Monocytes % (Manual) Basophils % (Manual) Nucleated RBC % Seg Neutrophils # Seg Neutrophils # Man Lymphocytes # (Manual) Monocytes # (Manual) Eosinophils # (Manual) Basophils # (Manual) PT INR APTT D-Dimer Heparin Anti-Xa Level ABG pH POC ABG pCO2 POC ABG pO2 ABG pO2 ABG HCO3 ABG O2 Saturation ABG Base Excess ABG Hemoglobin ABG Oxyhemoglobin ABG Sodium ABG Potassium ABG Chloride ABG Glucose Oxyhemoglobin Carboxyhemoglobin Sodium 130 L Potassium Chloride 92.2 L Carbon Dioxide 19 L D BUN 107 H Creatinine 5.1 H Glucose 106 H POC Glucose 106 H Lactic Acid Calcium 7.5 L Phosphorus Magnesium Ferritin Direct Bilirubin AST ALT Alkaline Phosphatase Lactate Dehydrogenase Total Creatine Kinase C-Reactive Protein Total Protein Albumin Triglycerides Arterial Blood Glucose Arterial Blood Ionized Calcium Urine Creatinine Urine Chloride Vancomycin Trough Coronavirus (PCR) Crossmatch 07/06/20 07/06/20 07/06/20 17:01 21:56 23:41 WBC RBC Hgb Hct MCHC RDW Plt Count Lymph % (Auto) [place] % (Auto) Lymph # (Auto) [place] # (Auto) Eos # (Auto) Baso # (Auto) Seg Neutrophils % Seg Neuts % (Manual) Lymphocytes % (Manual) Monocytes % (Manual) Basophils % (Manual) Nucleated RBC % Seg Neutrophils # Seg Neutrophils # Man Lymphocytes # (Manual) Monocytes # (Manual) Eosinophils # (Manual) Basophils # (Manual) PT INR APTT D-Dimer Heparin Anti-Xa Level ABG pH POC ABG pCO2 POC ABG pO2 ABG pO2 ABG HCO3 ABG O2 Saturation ABG Base Excess ABG Hemoglobin ABG Oxyhemoglobin ABG Sodium ABG Potassium ABG Chloride ABG Glucose Oxyhemoglobin Carboxyhemoglobin Sodium 135 L Potassium 5.1 H Chloride Carbon Dioxide BUN 73 H Creatinine 4.0 H Glucose 112 H POC Glucose 109 H 111 H Lactic Acid Calcium 7.8 L Phosphorus Magnesium Ferritin Direct Bilirubin AST ALT Alkaline Phosphatase Lactate Dehydrogenase Total Creatine Kinase C-Reactive Protein Total Protein Albumin Triglycerides Arterial Blood Glucose Arterial Blood Ionized Calcium Urine Creatinine Urine Chloride Vancomycin Trough Coronavirus (PCR) Crossmatch 07/07/20 07/07/20 07/07/20 04:18 05:04 05:29 WBC RBC 2.46 L Hgb 7.6 L Hct 21.5 L MCHC 35 H RDW 16.5 H Plt Count Lymph % (Auto) [place] % (Auto) Lymph # (Auto) [place] # (Auto) Eos # (Auto) Baso # (Auto) Seg Neutrophils % Seg Neuts % (Manual) 82.0 H Lymphocytes % (Manual) Monocytes % (Manual) Basophils % (Manual) Nucleated RBC % 1.0 H Seg Neutrophils # Seg Neutrophils # Man Lymphocytes # (Manual) 1.1 L Monocytes # (Manual) Eosinophils # (Manual) Basophils # (Manual) PT INR APTT D-Dimer Heparin Anti-Xa Level ABG pH POC ABG pCO2 POC ABG pO2 79.6 L ABG pO2 ABG HCO3 ABG O2 Saturation ABG Base Excess ABG Hemoglobin 8.2 L ABG Oxyhemoglobin ABG Sodium 133.3 L ABG Potassium 4.7 H ABG Chloride ABG Glucose 135 H Oxyhemoglobin Carboxyhemoglobin Sodium Potassium Chloride Carbon Dioxide BUN Creatinine Glucose POC Glucose 112 H Lactic Acid Calcium Phosphorus Magnesium Ferritin Direct Bilirubin AST ALT Alkaline Phosphatase Lactate Dehydrogenase Total Creatine Kinase C-Reactive Protein Total Protein Albumin Triglycerides Arterial Blood Glucose 135 H Arterial Blood Ionized Calcium 4.5 L Urine Creatinine Urine Chloride Vancomycin Trough Coronavirus (PCR) Crossmatch 07/07/20 07/07/20 07/07/20 10:17 12:18 17:43 WBC RBC Hgb Hct MCHC RDW Plt Count Lymph % (Auto) [place] % (Auto) Lymph # (Auto) [place] # (Auto) Eos # (Auto) Baso # (Auto) Seg Neutrophils % Seg Neuts % (Manual) Lymphocytes % (Manual) Monocytes % (Manual) Basophils % (Manual) Nucleated RBC % Seg Neutrophils # Seg Neutrophils # Man Lymphocytes # (Manual) Monocytes # (Manual) Eosinophils # (Manual) Basophils # (Manual) PT INR APTT D-Dimer Heparin Anti-Xa Level ABG pH POC ABG pCO2 POC ABG pO2 ABG pO2 ABG HCO3 ABG O2 Saturation ABG Base Excess ABG Hemoglobin ABG Oxyhemoglobin ABG Sodium ABG Potassium ABG Chloride ABG Glucose Oxyhemoglobin Carboxyhemoglobin Sodium 136 L Potassium Chloride 96.8 L Carbon Dioxide BUN 82 H Creatinine 4.3 H Glucose 129 H POC Glucose 108 H 116 H Lactic Acid Calcium 7.8 L Phosphorus Magnesium Ferritin Direct Bilirubin AST ALT Alkaline Phosphatase Lactate Dehydrogenase Total Creatine Kinase C-Reactive Protein Total Protein Albumin Triglycerides Arterial Blood Glucose Arterial Blood Ionized Calcium Urine Creatinine Urine Chloride Vancomycin Trough Coronavirus (PCR) Crossmatch 07/07/20 07/08/20 07/08/20 23:31 04:00 04:00 WBC RBC 2.52 L Hgb 7.3 L Hct 22.2 L MCHC RDW 16.6 H Plt Count Lymph % (Auto) 11.5 L [place] % (Auto) Lymph # (Auto) [place] # (Auto) Eos # (Auto) Baso # (Auto) Seg Neutrophils % 78.2 H Seg Neuts % (Manual) Lymphocytes % (Manual) Monocytes % (Manual) Basophils % (Manual) Nucleated RBC % Seg Neutrophils # 8.0 H Seg Neutrophils # Man Lymphocytes # (Manual) Monocytes # (Manual) Eosinophils # (Manual) Basophils # (Manual) PT INR APTT D-Dimer Heparin Anti-Xa Level ABG pH POC ABG pCO2 POC ABG pO2 ABG pO2 ABG HCO3 ABG O2 Saturation ABG Base Excess ABG Hemoglobin ABG Oxyhemoglobin ABG Sodium ABG Potassium ABG Chloride ABG Glucose Oxyhemoglobin Carboxyhemoglobin Sodium 132 L Potassium 5.4 H Chloride 92.5 L Carbon Dioxide BUN 98 H Creatinine 4.9 H Glucose 105 H POC Glucose 117 H Lactic Acid Calcium 7.9 L Phosphorus Magnesium Ferritin Direct Bilirubin AST ALT Alkaline Phosphatase Lactate Dehydrogenase Total Creatine Kinase C-Reactive Protein Total Protein Albumin Triglycerides Arterial Blood Glucose Arterial Blood Ionized Calcium Urine Creatinine Urine Chloride Vancomycin Trough Coronavirus (PCR) Crossmatch 07/08/20 07/08/20 07/08/20 04:09 11:34 17:05 WBC RBC Hgb Hct MCHC RDW Plt Count Lymph % (Auto) [place] % (Auto) Lymph # (Auto) [place] # (Auto) Eos # (Auto) Baso # (Auto) Seg Neutrophils % Seg Neuts % (Manual) Lymphocytes % (Manual) Monocytes % (Manual) Basophils % (Manual) Nucleated RBC % Seg Neutrophils # Seg Neutrophils # Man Lymphocytes # (Manual) Monocytes # (Manual) Eosinophils # (Manual) Basophils # (Manual) PT INR APTT D-Dimer Heparin Anti-Xa Level ABG pH 7.220 L POC ABG pCO2 60.5 H POC ABG pO2 ABG pO2 ABG HCO3 ABG O2 Saturation ABG Base Excess ABG Hemoglobin 8.2 L ABG Oxyhemoglobin ABG Sodium 131.3 L ABG Potassium 5.2 H ABG Chloride ABG Glucose 103 H Oxyhemoglobin Carboxyhemoglobin Sodium Potassium Chloride Carbon Dioxide BUN Creatinine Glucose POC Glucose 140 H 125 H Lactic Acid Calcium Phosphorus Magnesium Ferritin Direct Bilirubin AST ALT Alkaline Phosphatase Lactate Dehydrogenase Total Creatine Kinase C-Reactive Protein Total Protein Albumin Triglycerides Arterial Blood Glucose 103 H Arterial Blood Ionized Calcium 4.3 L Urine Creatinine Urine Chloride Vancomycin Trough Coronavirus (PCR) Crossmatch 07/08/20 07/08/20 07/09/20 20:21 23:43 05:10 WBC RBC Hgb Hct MCHC RDW Plt Count Lymph % (Auto) [place] % (Auto) Lymph # (Auto) [place] # (Auto) Eos # (Auto) Baso # (Auto) Seg Neutrophils % Seg Neuts % (Manual) Lymphocytes % (Manual) Monocytes % (Manual) Basophils % (Manual) Nucleated RBC % Seg Neutrophils # Seg Neutrophils # Man Lymphocytes # (Manual) Monocytes # (Manual) Eosinophils # (Manual) Basophils # (Manual) PT INR APTT D-Dimer Heparin Anti-Xa Level ABG pH 7.20 L POC ABG pCO2 69.8 H POC ABG pO2 138.9 H 76.1 L ABG pO2 ABG HCO3 ABG O2 Saturation ABG Base Excess ABG Hemoglobin 11.9 L 8.4 L ABG Oxyhemoglobin ABG Sodium 133.1 L 131.2 L ABG Potassium 5.0 H 4.7 H ABG Chloride ABG Glucose 120 H 102 H Oxyhemoglobin Carboxyhemoglobin Sodium Potassium Chloride Carbon Dioxide BUN Creatinine Glucose POC Glucose 118 H Lactic Acid Calcium Phosphorus Magnesium Ferritin Direct Bilirubin AST ALT Alkaline Phosphatase Lactate Dehydrogenase Total Creatine Kinase C-Reactive Protein Total Protein Albumin Triglycerides Arterial Blood Glucose 120 H 102 H Arterial Blood Ionized Calcium 4.4 L 4.3 L Urine Creatinine Urine Chloride Vancomycin Trough Coronavirus (PCR) Crossmatch 07/09/20 07/09/20 07/09/20 11:51 17:04 21:00 WBC RBC Hgb Hct MCHC RDW Plt Count Lymph % (Auto) [place] % (Auto) Lymph # (Auto) [place] # (Auto) Eos # (Auto) Baso # (Auto) Seg Neutrophils % Seg Neuts % (Manual) Lymphocytes % (Manual) Monocytes % (Manual) Basophils % (Manual) Nucleated RBC % Seg Neutrophils # Seg Neutrophils # Man Lymphocytes # (Manual) Monocytes # (Manual) Eosinophils # (Manual) Basophils # (Manual) PT INR APTT D-Dimer Heparin Anti-Xa Level ABG pH POC ABG pCO2 POC ABG pO2 114.2 H ABG pO2 ABG HCO3 ABG O2 Saturation ABG Base Excess ABG Hemoglobin 7.8 L ABG Oxyhemoglobin ABG Sodium 132.3 L ABG Potassium 4.6 H ABG Chloride ABG Glucose Oxyhemoglobin Carboxyhemoglobin Sodium Potassium Chloride Carbon Dioxide BUN Creatinine Glucose POC Glucose 113 H 111 H Lactic Acid Calcium Phosphorus Magnesium Ferritin Direct Bilirubin AST ALT Alkaline Phosphatase Lactate Dehydrogenase Total Creatine Kinase C-Reactive Protein Total Protein Albumin Triglycerides Arterial Blood Glucose Arterial Blood Ionized Calcium 4.4 L Urine Creatinine Urine Chloride Vancomycin Trough Coronavirus (PCR) Crossmatch 07/10/20 07/10/20 07/10/20 03:49 03:55 03:55 WBC 18.1 H RBC 2.37 L Hgb 6.8 L Hct 20.7 L MCHC RDW 16.9 H Plt Count Lymph % (Auto) [place] % (Auto) Lymph # (Auto) [place] # (Auto) Eos # (Auto) Baso # (Auto) Seg Neutrophils % Seg Neuts % (Manual) 79.0 H Lymphocytes % (Manual) 10.0 L Monocytes % (Manual) Basophils % (Manual) Nucleated RBC % 1.0 H Seg Neutrophils # Seg Neutrophils # Man 14.3 H Lymphocytes # (Manual) Monocytes # (Manual) Eosinophils # (Manual) 0.7 H Basophils # (Manual) PT INR APTT D-Dimer Heparin Anti-Xa Level ABG pH POC ABG pCO2 POC ABG pO2 ABG pO2 ABG HCO3 ABG O2 Saturation ABG Base Excess ABG Hemoglobin 7.7 L ABG Oxyhemoglobin ABG Sodium 130.3 L ABG Potassium 4.6 H ABG Chloride ABG Glucose Oxyhemoglobin Carboxyhemoglobin Sodium 136 L Potassium Chloride 96.0 L Carbon Dioxide BUN 76 H Creatinine 3.6 H Glucose POC Glucose Lactic Acid Calcium 7.4 L Phosphorus Magnesium Ferritin Direct Bilirubin AST ALT Alkaline Phosphatase Lactate Dehydrogenase Total Creatine Kinase C-Reactive Protein Total Protein Albumin Triglycerides Arterial Blood Glucose Arterial Blood Ionized Calcium 4.2 L Urine Creatinine Urine Chloride Vancomycin Trough Coronavirus (PCR) Crossmatch 07/10/20 07/11/20 07/11/20 13:24 04:08 06:52 WBC 26.0 H RBC 2.91 L Hgb 8.2 L Hct 24.8 L MCHC RDW 17.2 H Plt Count Lymph % (Auto) [place] % (Auto) Lymph # (Auto) [place] # (Auto) Eos # (Auto) Baso # (Auto) Seg Neutrophils % Seg Neuts % (Manual) Lymphocytes % (Manual) 1.0 L Monocytes % (Manual) 11.0 H Basophils % (Manual) Nucleated RBC % Seg Neutrophils # Seg Neutrophils # Man 16.9 H Lymphocytes # (Manual) 0.3 L Monocytes # (Manual) 2.9 H Eosinophils # (Manual) 1.0 H Basophils # (Manual) PT INR APTT D-Dimer Heparin Anti-Xa Level ABG pH POC ABG pCO2 POC ABG pO2 ABG pO2 ABG HCO3 ABG O2 Saturation ABG Base Excess ABG Hemoglobin 8.5 L ABG Oxyhemoglobin ABG Sodium 130.6 L ABG Potassium 4.9 H ABG Chloride ABG Glucose 105 H Oxyhemoglobin Carboxyhemoglobin Sodium Potassium Chloride Carbon Dioxide BUN Creatinine Glucose POC Glucose Lactic Acid Calcium Phosphorus Magnesium Ferritin Direct Bilirubin AST ALT Alkaline Phosphatase Lactate Dehydrogenase Total Creatine Kinase C-Reactive Protein Total Protein Albumin Triglycerides Arterial Blood Glucose 105 H Arterial Blood Ionized Calcium 4.1 L Urine Creatinine Urine Chloride Vancomycin Trough Coronavirus (PCR) Crossmatch See Detail 07/11/20 07/11/20 07/11/20 06:52 08:48 11:39 WBC RBC Hgb Hct MCHC RDW Plt Count Lymph % (Auto) [place] % (Auto) Lymph # (Auto) [place] # (Auto) Eos # (Auto) Baso # (Auto) Seg Neutrophils % Seg Neuts % (Manual) Lymphocytes % (Manual) Monocytes % (Manual) Basophils % (Manual) Nucleated RBC % Seg Neutrophils # Seg Neutrophils # Man Lymphocytes # (Manual) Monocytes # (Manual) Eosinophils # (Manual) Basophils # (Manual) PT INR APTT D-Dimer Heparin Anti-Xa Level ABG pH POC ABG pCO2 POC ABG pO2 ABG pO2 ABG HCO3 ABG O2 Saturation ABG Base Excess ABG Hemoglobin ABG Oxyhemoglobin ABG Sodium ABG Potassium ABG Chloride ABG Glucose Oxyhemoglobin Carboxyhemoglobin Sodium 133 L 134 L Potassium 5.3 H Chloride 93.5 L 94.8 L Carbon Dioxide BUN 101 H 99 H Creatinine 4.5 H 4.6 H Glucose 102 H POC Glucose 116 H Lactic Acid Calcium 7.8 L 7.6 L Phosphorus Magnesium Ferritin Direct Bilirubin AST ALT Alkaline Phosphatase Lactate Dehydrogenase Total Creatine Kinase C-Reactive Protein Total Protein Albumin Triglycerides Arterial Blood Glucose Arterial Blood Ionized Calcium Urine Creatinine Urine Chloride Vancomycin Trough Coronavirus (PCR) Crossmatch 07/11/20 07/12/20 07/12/20 17:23 00:04 03:20 WBC RBC Hgb Hct MCHC RDW Plt Count Lymph % (Auto) [place] % (Auto) Lymph # (Auto) [place] # (Auto) Eos # (Auto) Baso # (Auto) Seg Neutrophils % Seg Neuts % (Manual) Lymphocytes % (Manual) Monocytes % (Manual) Basophils % (Manual) Nucleated RBC % Seg Neutrophils # Seg Neutrophils # Man Lymphocytes # (Manual) Monocytes # (Manual) Eosinophils # (Manual) Basophils # (Manual) PT INR APTT D-Dimer Heparin Anti-Xa Level ABG pH POC ABG pCO2 49.1 H POC ABG pO2 130.3 H ABG pO2 ABG HCO3 ABG O2 Saturation ABG Base Excess ABG Hemoglobin 8.7 L ABG Oxyhemoglobin ABG Sodium 135.2 L ABG Potassium 4.7 H ABG Chloride ABG Glucose 128 H Oxyhemoglobin Carboxyhemoglobin Sodium Potassium Chloride Carbon Dioxide BUN Creatinine Glucose POC Glucose 142 H 113 H Lactic Acid Calcium Phosphorus Magnesium Ferritin Direct Bilirubin AST ALT Alkaline Phosphatase Lactate Dehydrogenase Total Creatine Kinase C-Reactive Protein Total Protein Albumin Triglycerides Arterial Blood Glucose 128 H Arterial Blood Ionized Calcium 4.4 L Urine Creatinine Urine Chloride Vancomycin Trough Coronavirus (PCR) Crossmatch 07/12/20 07/12/20 07/12/20 03:40 03:40 04:00 WBC 24.3 H RBC 2.83 L Hgb 8.0 L Hct 24.9 L MCHC RDW 17.7 H Plt Count Lymph % (Auto) 5.6 L [place] % (Auto) 7.4 H Lymph # (Auto) [place] # (Auto) 1.8 H Eos # (Auto) 0.7 H Baso # (Auto) Seg Neutrophils % 83.9 H Seg Neuts % (Manual) Lymphocytes % (Manual) Monocytes % (Manual) Basophils % (Manual) Nucleated RBC % Seg Neutrophils # 20.4 H Seg Neutrophils # Man Lymphocytes # (Manual) Monocytes # (Manual) Eosinophils # (Manual) Basophils # (Manual) PT INR APTT D-Dimer Heparin Anti-Xa Level ABG pH POC ABG pCO2 POC ABG pO2 ABG pO2 ABG HCO3 ABG O2 Saturation ABG Base Excess ABG Hemoglobin ABG Oxyhemoglobin ABG Sodium ABG Potassium ABG Chloride ABG Glucose Oxyhemoglobin Carboxyhemoglobin Sodium 134 L Potassium Chloride 95.5 L Carbon Dioxide BUN 79 H Creatinine 3.7 H Glucose 127 H POC Glucose Lactic Acid Calcium 7.8 L Phosphorus Magnesium Ferritin Direct Bilirubin AST ALT Alkaline Phosphatase Lactate Dehydrogenase Total Creatine Kinase C-Reactive Protein Total Protein Albumin Triglycerides 246 H Arterial Blood Glucose Arterial Blood Ionized Calcium Urine Creatinine Urine Chloride Vancomycin Trough Coronavirus (PCR) Crossmatch 07/12/20 07/12/20 07/12/20 05:48 11:50 17:29 WBC RBC Hgb Hct MCHC RDW Plt Count Lymph % (Auto) [place] % (Auto) Lymph # (Auto) [place] # (Auto) Eos # (Auto) Baso # (Auto) Seg Neutrophils % Seg Neuts % (Manual) Lymphocytes % (Manual) Monocytes % (Manual) Basophils % (Manual) Nucleated RBC % Seg Neutrophils # Seg Neutrophils # Man Lymphocytes # (Manual) Monocytes # (Manual) Eosinophils # (Manual) Basophils # (Manual) PT INR APTT D-Dimer Heparin Anti-Xa Level ABG pH POC ABG pCO2 POC ABG pO2 ABG pO2 ABG HCO3 ABG O2 Saturation ABG Base Excess ABG Hemoglobin ABG Oxyhemoglobin ABG Sodium ABG Potassium ABG Chloride ABG Glucose Oxyhemoglobin Carboxyhemoglobin Sodium Potassium Chloride Carbon Dioxide BUN Creatinine Glucose POC Glucose 136 H 113 H 110 H Lactic Acid Calcium Phosphorus Magnesium Ferritin Direct Bilirubin AST ALT Alkaline Phosphatase Lactate Dehydrogenase Total Creatine Kinase C-Reactive Protein Total Protein Albumin Triglycerides Arterial Blood Glucose Arterial Blood Ionized Calcium Urine Creatinine Urine Chloride Vancomycin Trough Coronavirus (PCR) Crossmatch 07/12/20 07/13/20 07/13/20 23:43 03:11 06:59 WBC RBC Hgb Hct MCHC RDW Plt Count Lymph % (Auto) [place] % (Auto) Lymph # (Auto) [place] # (Auto) Eos # (Auto) Baso # (Auto) Seg Neutrophils % Seg Neuts % (Manual) Lymphocytes % (Manual) Monocytes % (Manual) Basophils % (Manual) Nucleated RBC % Seg Neutrophils # Seg Neutrophils # Man Lymphocytes # (Manual) Monocytes # (Manual) Eosinophils # (Manual) Basophils # (Manual) PT INR APTT D-Dimer Heparin Anti-Xa Level ABG pH POC ABG pCO2 49.0 H POC ABG pO2 69.6 L ABG pO2 ABG HCO3 ABG O2 Saturation ABG Base Excess ABG Hemoglobin 8.5 L ABG Oxyhemoglobin 90.5 L ABG Sodium 133.6 L ABG Potassium 5.1 H ABG Chloride ABG Glucose 104 H Oxyhemoglobin Carboxyhemoglobin Sodium 133 L Potassium 5.7 H Chloride 96.3 L Carbon Dioxide 20 L D BUN 102 H Creatinine 4.4 H Glucose 101 H POC Glucose 120 H Lactic Acid Calcium 7.9 L Phosphorus Magnesium Ferritin Direct Bilirubin AST 61 H ALT 85 H Alkaline Phosphatase 144 H Lactate Dehydrogenase Total Creatine Kinase C-Reactive Protein Total Protein 5.4 L Albumin 2.0 L Triglycerides Arterial Blood Glucose 104 H Arterial Blood Ionized Calcium 4.3 L Urine Creatinine Urine Chloride Vancomycin Trough Coronavirus (PCR) Crossmatch 07/13/20 07/13/20 07/13/20 08:48 12:14 15:12 WBC 27.5 H RBC 3.03 L Hgb 8.7 L Hct 27.0 L MCHC RDW 18.0 H Plt Count Lymph % (Auto) [place] % (Auto) Lymph # (Auto) [place] # (Auto) Eos # (Auto) Baso # (Auto) Seg Neutrophils % Seg Neuts % (Manual) Lymphocytes % (Manual) Monocytes % (Manual) Basophils % (Manual) Nucleated RBC % Seg Neutrophils # Seg Neutrophils # Man Lymphocytes # (Manual) Monocytes # (Manual) Eosinophils # (Manual) Basophils # (Manual) PT INR APTT D-Dimer Heparin Anti-Xa Level ABG pH POC ABG pCO2 POC ABG pO2 ABG pO2 ABG HCO3 ABG O2 Saturation ABG Base Excess ABG Hemoglobin ABG Oxyhemoglobin ABG Sodium ABG Potassium ABG Chloride ABG Glucose Oxyhemoglobin Carboxyhemoglobin Sodium Potassium 5.5 H Chloride Carbon Dioxide BUN 88 H Creatinine 3.8 H Glucose 133 H POC Glucose 134 H Lactic Acid Calcium 7.5 L Phosphorus Magnesium Ferritin Direct Bilirubin AST ALT Alkaline Phosphatase Lactate Dehydrogenase Total Creatine Kinase C-Reactive Protein Total Protein Albumin Triglycerides Arterial Blood Glucose Arterial Blood Ionized Calcium Urine Creatinine Urine Chloride Vancomycin Trough Coronavirus (PCR) Crossmatch 07/13/20 07/13/20 07/13/20 16:46 16:47 18:46 WBC RBC Hgb 7.4 L Hct 22.1 L MCHC RDW Plt Count Lymph % (Auto) [place] % (Auto) Lymph # (Auto) [place] # (Auto) Eos # (Auto) Baso # (Auto) Seg Neutrophils % Seg Neuts % (Manual) Lymphocytes % (Manual) Monocytes % (Manual) Basophils % (Manual) Nucleated RBC % Seg Neutrophils # Seg Neutrophils # Man Lymphocytes # (Manual) Monocytes # (Manual) Eosinophils # (Manual) Basophils # (Manual) PT INR APTT D-Dimer Heparin Anti-Xa Level ABG pH POC ABG pCO2 POC ABG pO2 ABG pO2 ABG HCO3 ABG O2 Saturation ABG Base Excess ABG Hemoglobin ABG Oxyhemoglobin ABG Sodium ABG Potassium ABG Chloride ABG Glucose Oxyhemoglobin Carboxyhemoglobin Sodium Potassium Chloride Carbon Dioxide BUN Creatinine Glucose POC Glucose 118 H Lactic Acid Calcium Phosphorus Magnesium Ferritin Direct Bilirubin AST ALT Alkaline Phosphatase Lactate Dehydrogenase Total Creatine Kinase C-Reactive Protein Total Protein Albumin Triglycerides Arterial Blood Glucose Arterial Blood Ionized Calcium Urine Creatinine Urine Chloride Vancomycin Trough Coronavirus (PCR) Crossmatch See Detail 07/13/20 07/14/20 07/14/20 23:34 04:25 12:21 WBC RBC Hgb Hct MCHC RDW Plt Count Lymph % (Auto) [place] % (Auto) Lymph # (Auto) [place] # (Auto) Eos # (Auto) Baso # (Auto) Seg Neutrophils % Seg Neuts % (Manual) Lymphocytes % (Manual) Monocytes % (Manual) Basophils % (Manual) Nucleated RBC % Seg Neutrophils # Seg Neutrophils # Man Lymphocytes # (Manual) Monocytes # (Manual) Eosinophils # (Manual) Basophils # (Manual) PT INR APTT D-Dimer Heparin Anti-Xa Level ABG pH POC ABG pCO2 POC ABG pO2 ABG pO2 ABG HCO3 ABG O2 Saturation ABG Base Excess ABG Hemoglobin 8.9 L ABG Oxyhemoglobin ABG Sodium 133.1 L ABG Potassium 4.7 H ABG Chloride ABG Glucose 113 H Oxyhemoglobin Carboxyhemoglobin Sodium Potassium Chloride Carbon Dioxide BUN Creatinine Glucose POC Glucose 109 H 109 H Lactic Acid Calcium Phosphorus Magnesium Ferritin Direct Bilirubin AST ALT Alkaline Phosphatase Lactate Dehydrogenase Total Creatine Kinase C-Reactive Protein Total Protein Albumin Triglycerides Arterial Blood Glucose 113 H Arterial Blood Ionized Calcium 4.4 L Urine Creatinine Urine Chloride Vancomycin Trough Coronavirus (PCR) Crossmatch 07/14/20 07/14/20 07/14/20 16:44 16:44 20:20 WBC 30.1 H RBC 2.60 L Hgb 7.4 L 5.6 L* Hct 23.0 L 18.1 L* MCHC RDW 18.0 H Plt Count Lymph % (Auto) [place] % (Auto) Lymph # (Auto) [place] # (Auto) Eos # (Auto) Baso # (Auto) Seg Neutrophils % Seg Neuts % (Manual) 78.0 H Lymphocytes % (Manual) 5.0 L Monocytes % (Manual) Basophils % (Manual) Nucleated RBC % Seg Neutrophils # Seg Neutrophils # Man 23.5 H Lymphocytes # (Manual) Monocytes # (Manual) 0.9 H Eosinophils # (Manual) Basophils # (Manual) PT 15.6 H INR 1.26 H APTT D-Dimer Heparin Anti-Xa Level ABG pH POC ABG pCO2 POC ABG pO2 ABG pO2 ABG HCO3 ABG O2 Saturation ABG Base Excess ABG Hemoglobin ABG Oxyhemoglobin ABG Sodium ABG Potassium ABG Chloride ABG Glucose Oxyhemoglobin Carboxyhemoglobin Sodium Potassium Chloride Carbon Dioxide BUN Creatinine Glucose POC Glucose Lactic Acid Calcium Phosphorus Magnesium Ferritin Direct Bilirubin AST ALT Alkaline Phosphatase Lactate Dehydrogenase Total Creatine Kinase C-Reactive Protein Total Protein Albumin Triglycerides Arterial Blood Glucose Arterial Blood Ionized Calcium Urine Creatinine Urine Chloride Vancomycin Trough Coronavirus (PCR) Crossmatch 07/14/20 07/14/20 07/15/20 21:19 23:45 04:13 WBC RBC Hgb Hct MCHC RDW Plt Count Lymph % (Auto) [place] % (Auto) Lymph # (Auto) [place] # (Auto) Eos # (Auto) Baso # (Auto) Seg Neutrophils % Seg Neuts % (Manual) Lymphocytes % (Manual) Monocytes % (Manual) Basophils % (Manual) Nucleated RBC % Seg Neutrophils # Seg Neutrophils # Man Lymphocytes # (Manual) Monocytes # (Manual) Eosinophils # (Manual) Basophils # (Manual) PT INR APTT D-Dimer Heparin Anti-Xa Level ABG pH POC ABG pCO2 POC ABG pO2 ABG pO2 ABG HCO3 ABG O2 Saturation ABG Base Excess ABG Hemoglobin 5.8 L 6.0 L ABG Oxyhemoglobin 93.8 L ABG Sodium 132.2 L 130.3 L ABG Potassium 5.5 H 5.8 H ABG Chloride ABG Glucose 118 H 122 H Oxyhemoglobin Carboxyhemoglobin Sodium Potassium Chloride Carbon Dioxide BUN Creatinine Glucose POC Glucose 126 H Lactic Acid Calcium Phosphorus Magnesium Ferritin Direct Bilirubin AST ALT Alkaline Phosphatase Lactate Dehydrogenase Total Creatine Kinase C-Reactive Protein Total Protein Albumin Triglycerides Arterial Blood Glucose 118 H 122 H Arterial Blood Ionized Calcium 4.3 L 4.2 L Urine Creatinine Urine Chloride Vancomycin Trough Coronavirus (PCR) Crossmatch [id number] 07/15/20 08:21 08:21 08:38 WBC 45.5 H* RBC 2.42 L Hgb 7.1 L Hct 21.5 L MCHC RDW 16.5 H Plt Count Lymph % (Auto) [place] % (Auto) Lymph # (Auto) [place] # (Auto) Eos # (Auto) Baso # (Auto) Seg Neutrophils % Seg Neuts % (Manual) 89.0 H Lymphocytes % (Manual) 7.0 L Monocytes % (Manual) Basophils % (Manual) Nucleated RBC % Seg Neutrophils # Seg Neutrophils # Man 40.5 H Lymphocytes # (Manual) Monocytes # (Manual) 1.8 H Eosinophils # (Manual) Basophils # (Manual) PT 17.6 H INR 1.46 H APTT D-Dimer Heparin Anti-Xa Level ABG pH POC ABG pCO2 POC ABG pO2 ABG pO2 ABG HCO3 ABG O2 Saturation ABG Base Excess ABG Hemoglobin ABG Oxyhemoglobin ABG Sodium ABG Potassium ABG Chloride ABG Glucose Oxyhemoglobin Carboxyhemoglobin Sodium 131 L Potassium 6.0 H Chloride 94.6 L Carbon Dioxide 20 L BUN 116 H Creatinine 4.6 H Glucose 123 H POC Glucose Lactic Acid Calcium 7.6 L Phosphorus Magnesium Ferritin Direct Bilirubin AST ALT Alkaline Phosphatase Lactate Dehydrogenase Total Creatine Kinase C-Reactive Protein Total Protein Albumin Triglycerides Arterial Blood Glucose Arterial Blood Ionized Calcium Urine Creatinine Urine Chloride Vancomycin Trough Coronavirus (PCR) Crossmatch 07/15/20 07/15/20 07/15/20 11:29 17:23 18:52 WBC RBC Hgb Hct MCHC RDW Plt Count Lymph % (Auto) [place] % (Auto) Lymph # (Auto) [place] # (Auto) Eos # (Auto) Baso # (Auto) Seg Neutrophils % Seg Neuts % (Manual) Lymphocytes % (Manual) Monocytes % (Manual) Basophils % (Manual) Nucleated RBC % Seg Neutrophils # Seg Neutrophils # Man Lymphocytes # (Manual) Monocytes # (Manual) Eosinophils # (Manual) Basophils # (Manual) PT INR APTT D-Dimer Heparin Anti-Xa Level ABG pH POC ABG pCO2 POC ABG pO2 ABG pO2 ABG HCO3 ABG O2 Saturation ABG Base Excess ABG Hemoglobin ABG Oxyhemoglobin ABG Sodium ABG Potassium ABG Chloride ABG Glucose Oxyhemoglobin Carboxyhemoglobin Sodium Potassium Chloride 97.9 L Carbon Dioxide BUN 78 H Creatinine 3.1 H Glucose 114 H POC Glucose 181 H 120 H Lactic Acid Calcium 7.3 L Phosphorus Magnesium Ferritin Direct Bilirubin AST ALT Alkaline Phosphatase Lactate Dehydrogenase Total Creatine Kinase C-Reactive Protein Total Protein Albumin Triglycerides Arterial Blood Glucose Arterial Blood Ionized Calcium Urine Creatinine Urine Chloride Vancomycin Trough Coronavirus (PCR) Crossmatch 07/15/20 07/16/20 07/16/20 18:52 01:10 03:38 WBC RBC Hgb 9.9 L 8.5 L Hct 29.8 L D 24.7 L MCHC RDW Plt Count Lymph % (Auto) [place] % (Auto) Lymph # (Auto) [place] # (Auto) Eos # (Auto) Baso # (Auto) Seg Neutrophils % Seg Neuts % (Manual) Lymphocytes % (Manual) Monocytes % (Manual) Basophils % (Manual) Nucleated RBC % Seg Neutrophils # Seg Neutrophils # Man Lymphocytes # (Manual) Monocytes # (Manual) Eosinophils # (Manual) Basophils # (Manual) PT INR APTT D-Dimer Heparin Anti-Xa Level ABG pH 7.314 L POC ABG pCO2 48.5 H POC ABG pO2 58.9 L ABG pO2 ABG HCO3 ABG O2 Saturation ABG Base Excess ABG Hemoglobin 8.7 L ABG Oxyhemoglobin 86.7 L ABG Sodium 132.7 L ABG Potassium 5.2 H ABG Chloride ABG Glucose 99 H Oxyhemoglobin Carboxyhemoglobin Sodium Potassium Chloride Carbon Dioxide BUN Creatinine Glucose POC Glucose Lactic Acid Calcium Phosphorus Magnesium Ferritin Direct Bilirubin AST ALT Alkaline Phosphatase Lactate Dehydrogenase Total Creatine Kinase C-Reactive Protein Total Protein Albumin Triglycerides Arterial Blood Glucose 99 H Arterial Blood Ionized Calcium 3.9 L Urine Creatinine Urine Chloride Vancomycin Trough Coronavirus (PCR) Crossmatch 07/16/20 07/16/20 07/16/20 04:28 04:28 07:29 WBC 48.9 H* RBC 2.86 L Hgb 8.6 L 7.9 L Hct 25.4 L 24.4 L MCHC RDW 15.6 H Plt Count Lymph % (Auto) [place] % (Auto) Lymph # (Auto) [place] # (Auto) Eos # (Auto) Baso # (Auto) Seg Neutrophils % Seg Neuts % (Manual) Lymphocytes % (Manual) Monocytes % (Manual) Basophils % (Manual) Nucleated RBC % Seg Neutrophils # Seg Neutrophils # Man Lymphocytes # (Manual) Monocytes # (Manual) Eosinophils # (Manual) Basophils # (Manual) PT INR APTT D-Dimer Heparin Anti-Xa Level ABG pH POC ABG pCO2 POC ABG pO2 ABG pO2 ABG HCO3 ABG O2 Saturation ABG Base Excess ABG Hemoglobin ABG Oxyhemoglobin ABG Sodium ABG Potassium ABG Chloride ABG Glucose Oxyhemoglobin Carboxyhemoglobin Sodium 136 L Potassium 5.4 H Chloride 95.0 L Carbon Dioxide BUN 85 H Creatinine 3.4 H Glucose 66 L POC Glucose Lactic Acid Calcium 6.8 L Phosphorus Magnesium Ferritin Direct Bilirubin AST ALT Alkaline Phosphatase Lactate Dehydrogenase Total Creatine Kinase C-Reactive Protein Total Protein Albumin Triglycerides Arterial Blood Glucose Arterial Blood Ionized Calcium Urine Creatinine Urine Chloride Vancomycin Trough Coronavirus (PCR) Crossmatch 07/16/20 07/16/20 07/16/20 11:52 18:06 18:08 WBC RBC Hgb 7.4 L Hct 22.5 L MCHC RDW Plt Count Lymph % (Auto) [place] % (Auto) Lymph # (Auto) [place] # (Auto) Eos # (Auto) Baso # (Auto) Seg Neutrophils % Seg Neuts % (Manual) Lymphocytes % (Manual) Monocytes % (Manual) Basophils % (Manual) Nucleated RBC % Seg Neutrophils # Seg Neutrophils # Man Lymphocytes # (Manual) Monocytes # (Manual) Eosinophils # (Manual) Basophils # (Manual) PT INR APTT D-Dimer Heparin Anti-Xa Level ABG pH POC ABG pCO2 POC ABG pO2 ABG pO2 ABG HCO3 ABG O2 Saturation ABG Base Excess ABG Hemoglobin ABG Oxyhemoglobin ABG Sodium ABG Potassium ABG Chloride ABG Glucose Oxyhemoglobin Carboxyhemoglobin Sodium Potassium Chloride Carbon Dioxide BUN Creatinine Glucose POC Glucose 124 H 108 H Lactic Acid Calcium Phosphorus Magnesium Ferritin Direct Bilirubin AST ALT Alkaline Phosphatase Lactate Dehydrogenase Total Creatine Kinase C-Reactive Protein Total Protein Albumin Triglycerides Arterial Blood Glucose Arterial Blood Ionized Calcium Urine Creatinine Urine Chloride Vancomycin Trough Coronavirus (PCR) Crossmatch 07/17/20 07/17/20 07/17/20 03:27 15:25 15:25 WBC 46.2 H* RBC 2.05 L Hgb 6.1 L Hct 18.4 L* MCHC RDW 15.6 H Plt Count Lymph % (Auto) [place] % (Auto) Lymph # (Auto) [place] # (Auto) Eos # (Auto) Baso # (Auto) Seg Neutrophils % Seg Neuts % (Manual) 87.0 H Lymphocytes % (Manual) 3.0 L Monocytes % (Manual) Basophils % (Manual) Nucleated RBC % Seg Neutrophils # Seg Neutrophils # Man 40.2 H Lymphocytes # (Manual) Monocytes # (Manual) 3.2 H Eosinophils # (Manual) Basophils # (Manual) PT 18.2 H INR 1.52 H APTT D-Dimer Heparin Anti-Xa Level ABG pH 7.313 L POC ABG pCO2 50.9 H POC ABG pO2 ABG pO2 ABG HCO3 ABG O2 Saturation ABG Base Excess ABG Hemoglobin 7.5 L ABG Oxyhemoglobin ABG Sodium 131.8 L ABG Potassium 4.6 H ABG Chloride ABG Glucose 105 H Oxyhemoglobin Carboxyhemoglobin Sodium Potassium Chloride Carbon Dioxide BUN Creatinine Glucose POC Glucose Lactic Acid Calcium Phosphorus Magnesium Ferritin Direct Bilirubin AST ALT Alkaline Phosphatase Lactate Dehydrogenase Total Creatine Kinase C-Reactive Protein Total Protein Albumin Triglycerides Arterial Blood Glucose 105 H Arterial Blood Ionized Calcium 3.9 L Urine Creatinine Urine Chloride Vancomycin Trough Coronavirus (PCR) Crossmatch 07/17/20 07/18/20 07/18/20 Unknown 03:10 05:06 WBC 37.9 H RBC 2.91 L Hgb 8.5 L Hct 25.6 L D MCHC RDW Plt Count Lymph % (Auto) [place] % (Auto) Lymph # (Auto) [place] # (Auto) Eos # (Auto) Baso # (Auto) Seg Neutrophils % Seg Neuts % (Manual) Lymphocytes % (Manual) Monocytes % (Manual) Basophils % (Manual) Nucleated RBC % Seg Neutrophils # Seg Neutrophils # Man Lymphocytes # (Manual) Monocytes # (Manual) Eosinophils # (Manual) Basophils # (Manual) PT INR APTT D-Dimer Heparin Anti-Xa Level ABG pH POC ABG pCO2 POC ABG pO2 114.9 H ABG pO2 ABG HCO3 ABG O2 Saturation ABG Base Excess ABG Hemoglobin 8.6 L ABG Oxyhemoglobin ABG Sodium 130.6 L ABG Potassium 4.9 H ABG Chloride ABG Glucose Oxyhemoglobin Carboxyhemoglobin Sodium Potassium Chloride Carbon Dioxide BUN Creatinine Glucose POC Glucose Lactic Acid Calcium Phosphorus Magnesium Ferritin Direct Bilirubin AST ALT Alkaline Phosphatase Lactate Dehydrogenase Total Creatine Kinase C-Reactive Protein Total Protein Albumin Triglycerides Arterial Blood Glucose Arterial Blood Ionized Calcium 3.8 L Urine Creatinine Urine Chloride Vancomycin Trough Coronavirus (PCR) Crossmatch See Detail 07/18/20 07/19/20 07/19/20 05:06 00:06 03:57 WBC RBC Hgb Hct MCHC RDW Plt Count Lymph % (Auto) [place] % (Auto) Lymph # (Auto) [place] # (Auto) Eos # (Auto) Baso # (Auto) Seg Neutrophils % Seg Neuts % (Manual) Lymphocytes % (Manual) Monocytes % (Manual) Basophils % (Manual) Nucleated RBC % Seg Neutrophils # Seg Neutrophils # Man Lymphocytes # (Manual) Monocytes # (Manual) Eosinophils # (Manual) Basophils # (Manual) PT INR APTT D-Dimer Heparin Anti-Xa Level ABG pH POC ABG pCO2 POC ABG pO2 ABG pO2 ABG HCO3 ABG O2 Saturation ABG Base Excess ABG Hemoglobin 8.6 L ABG Oxyhemoglobin ABG Sodium 130.4 L ABG Potassium ABG Chloride ABG Glucose Oxyhemoglobin Carboxyhemoglobin Sodium Potassium 5.4 H Chloride Carbon Dioxide BUN 79 H Creatinine 3.2 H Glucose POC Glucose 69 L Lactic Acid Calcium 6.9 L Phosphorus Magnesium Ferritin Direct Bilirubin AST ALT 58 H Alkaline Phosphatase Lactate Dehydrogenase Total Creatine Kinase C-Reactive Protein Total Protein 4.3 L D Albumin 1.7 L Triglycerides 306 H Arterial Blood Glucose Arterial Blood Ionized Calcium 3.9 L Urine Creatinine Urine Chloride Vancomycin Trough Coronavirus (PCR) Crossmatch 07/19/20 07/19/20 07/19/20 05:22 09:15 09:15 WBC 32.5 H RBC 2.57 L Hgb 7.8 L Hct 22.8 L MCHC RDW 15.3 H Plt Count Lymph % (Auto) [place] % (Auto) Lymph # (Auto) [place] # (Auto) Eos # (Auto) Baso # (Auto) Seg Neutrophils % Seg Neuts % (Manual) Lymphocytes % (Manual) Monocytes % (Manual) Basophils % (Manual) Nucleated RBC % Seg Neutrophils # Seg Neutrophils # Man Lymphocytes # (Manual) Monocytes # (Manual) Eosinophils # (Manual) Basophils # (Manual) PT INR APTT D-Dimer Heparin Anti-Xa Level ABG pH POC ABG pCO2 POC ABG pO2 ABG pO2 ABG HCO3 ABG O2 Saturation ABG Base Excess ABG Hemoglobin ABG Oxyhemoglobin ABG Sodium ABG Potassium ABG Chloride ABG Glucose Oxyhemoglobin Carboxyhemoglobin Sodium 135 L Potassium Chloride 96.3 L Carbon Dioxide BUN 61 H Creatinine 2.8 H Glucose POC Glucose 64 L Lactic Acid Calcium 6.8 L Phosphorus Magnesium Ferritin Direct Bilirubin AST 54 H ALT 65 H Alkaline Phosphatase Lactate Dehydrogenase Total Creatine Kinase C-Reactive Protein Total Protein 4.3 L Albumin 1.8 L Triglycerides Arterial Blood Glucose Arterial Blood Ionized Calcium Urine Creatinine Urine Chloride Vancomycin Trough Coronavirus (PCR) Crossmatch 07/20/20 07/20/20 07/20/20 05:20 06:00 06:07 WBC 28.1 H RBC 2.53 L Hgb 7.7 L Hct 22.7 L MCHC RDW 15.5 H Plt Count Lymph % (Auto) [place] % (Auto) Lymph # (Auto) [place] # (Auto) Eos # (Auto) Baso # (Auto) Seg Neutrophils % Seg Neuts % (Manual) Lymphocytes % (Manual) Monocytes % (Manual) Basophils % (Manual) Nucleated RBC % Seg Neutrophils # Seg Neutrophils # Man Lymphocytes # (Manual) Monocytes # (Manual) Eosinophils # (Manual) Basophils # (Manual) PT INR APTT D-Dimer Heparin Anti-Xa Level ABG pH POC ABG pCO2 POC ABG pO2 ABG pO2 ABG HCO3 ABG O2 Saturation ABG Base Excess ABG Hemoglobin 6.3 L ABG Oxyhemoglobin ABG Sodium 130.0 L ABG Potassium ABG Chloride ABG Glucose 114 H Oxyhemoglobin Carboxyhemoglobin Sodium Potassium Chloride Carbon Dioxide BUN Creatinine Glucose POC Glucose 110 H Lactic Acid Calcium Phosphorus Magnesium Ferritin Direct Bilirubin AST ALT Alkaline Phosphatase Lactate Dehydrogenase Total Creatine Kinase C-Reactive Protein Total Protein Albumin Triglycerides Arterial Blood Glucose 114 H Arterial Blood Ionized Calcium 3.9 L Urine Creatinine Urine Chloride Vancomycin Trough Coronavirus (PCR) Crossmatch 07/20/20 07/21/20 07/21/20 17:19 05:02 05:40 WBC 32.9 H RBC 2.78 L Hgb 8.5 L Hct 25.2 L MCHC RDW 15.7 H Plt Count 74 L Lymph % (Auto) [place] % (Auto) Lymph # (Auto) [place] # (Auto) Eos # (Auto) Baso # (Auto) Seg Neutrophils % Seg Neuts % (Manual) Lymphocytes % (Manual) Monocytes % (Manual) Basophils % (Manual) Nucleated RBC % Seg Neutrophils # Seg Neutrophils # Man Lymphocytes # (Manual) Monocytes # (Manual) Eosinophils # (Manual) Basophils # (Manual) PT INR APTT D-Dimer Heparin Anti-Xa Level ABG pH POC ABG pCO2 POC ABG pO2 73.2 L ABG pO2 ABG HCO3 ABG O2 Saturation ABG Base Excess ABG Hemoglobin 9.1 L ABG Oxyhemoglobin 93.4 L ABG Sodium ABG Potassium 3.1 L ABG Chloride ABG Glucose 112 H Oxyhemoglobin Carboxyhemoglobin Sodium Potassium Chloride Carbon Dioxide BUN Creatinine Glucose POC Glucose 137 H Lactic Acid Calcium Phosphorus Magnesium Ferritin Direct Bilirubin AST ALT Alkaline Phosphatase Lactate Dehydrogenase Total Creatine Kinase C-Reactive Protein Total Protein Albumin Triglycerides Arterial Blood Glucose 112 H Arterial Blood Ionized Calcium Urine Creatinine Urine Chloride Vancomycin Trough Coronavirus (PCR) Crossmatch 07/22/20 07/22/20 07/22/20 04:11 16:00 16:00 WBC 38.7 H RBC 2.72 L Hgb 8.1 L Hct 24.5 L MCHC RDW 16.1 H Plt Count Lymph % (Auto) [place] % (Auto) Lymph # (Auto) [place] # (Auto) Eos # (Auto) Baso # (Auto) Seg Neutrophils % Seg Neuts % (Manual) Lymphocytes % (Manual) Monocytes % (Manual) Basophils % (Manual) Nucleated RBC % Seg Neutrophils # Seg Neutrophils # Man Lymphocytes # (Manual) Monocytes # (Manual) Eosinophils # (Manual) Basophils # (Manual) PT INR APTT D-Dimer Heparin Anti-Xa Level ABG pH POC ABG pCO2 POC ABG pO2 67.7 L ABG pO2 ABG HCO3 ABG O2 Saturation ABG Base Excess ABG Hemoglobin 7.4 L ABG Oxyhemoglobin 91.7 L ABG Sodium ABG Potassium 2.9 L ABG Chloride ABG Glucose 105 H Oxyhemoglobin Carboxyhemoglobin Sodium Potassium Chloride Carbon Dioxide BUN Creatinine Glucose POC Glucose Lactic Acid Calcium Phosphorus Magnesium Ferritin Direct Bilirubin AST ALT Alkaline Phosphatase Lactate Dehydrogenase Total Creatine Kinase C-Reactive Protein Total Protein Albumin Triglycerides 197 H Arterial Blood Glucose 105 H Arterial Blood Ionized Calcium Urine Creatinine Urine Chloride Vancomycin Trough Coronavirus (PCR) Crossmatch 07/23/20 07/23/20 07/23/20 04:56 11:49 Unknown WBC RBC Hgb Hct MCHC RDW Plt Count Lymph % (Auto) [place] % (Auto) Lymph # (Auto) [place] # (Auto) Eos # (Auto) Baso # (Auto) Seg Neutrophils % Seg Neuts % (Manual) Lymphocytes % (Manual) Monocytes % (Manual) Basophils % (Manual) Nucleated RBC % Seg Neutrophils # Seg Neutrophils # Man Lymphocytes # (Manual) Monocytes # (Manual) Eosinophils # (Manual) Basophils # (Manual) PT INR APTT D-Dimer Heparin Anti-Xa Level ABG pH POC ABG pCO2 POC ABG pO2 75.7 L ABG pO2 ABG HCO3 ABG O2 Saturation ABG Base Excess ABG Hemoglobin 9.3 L ABG Oxyhemoglobin ABG Sodium ABG Potassium 3.1 L ABG Chloride 108.0 H ABG Glucose 101 H Oxyhemoglobin Carboxyhemoglobin Sodium Potassium 3.1 L D Chloride Carbon Dioxide BUN 36 H Creatinine 2.1 H Glucose 103 H POC Glucose 107 H Lactic Acid Calcium Phosphorus Magnesium Ferritin Direct Bilirubin AST ALT Alkaline Phosphatase Lactate Dehydrogenase Total Creatine Kinase C-Reactive Protein Total Protein Albumin Triglycerides Arterial Blood Glucose 101 H Arterial Blood Ionized Calcium Urine Creatinine Urine Chloride Vancomycin Trough Coronavirus (PCR) Crossmatch 07/24/20 07/24/20 07/24/20 06:40 06:40 20:38 WBC 31.4 H RBC 2.37 L Hgb 7.2 L Hct 21.7 L MCHC RDW 17.0 H Plt Count Lymph % (Auto) [place] % (Auto) Lymph # (Auto) [place] # (Auto) Eos # (Auto) Baso # (Auto) Seg Neutrophils % Seg Neuts % (Manual) 85.0 H Lymphocytes % (Manual) 6.0 L Monocytes % (Manual) Basophils % (Manual) Nucleated RBC % Seg Neutrophils # Seg Neutrophils # Man 26.7 H Lymphocytes # (Manual) Monocytes # (Manual) 0.9 H Eosinophils # (Manual) Basophils # (Manual) 0.3 H PT INR APTT D-Dimer Heparin Anti-Xa Level ABG pH POC ABG pCO2 POC ABG pO2 ABG pO2 ABG HCO3 ABG O2 Saturation ABG Base Excess ABG Hemoglobin ABG Oxyhemoglobin ABG Sodium ABG Potassium ABG Chloride ABG Glucose Oxyhemoglobin Carboxyhemoglobin Sodium Potassium 3.1 L Chloride Carbon Dioxide BUN 46 H Creatinine 2.5 H Glucose 109 H POC Glucose Lactic Acid Calcium Phosphorus Magnesium Ferritin Direct Bilirubin AST 46 H ALT 74 H Alkaline Phosphatase 180 H Lactate Dehydrogenase Total Creatine Kinase C-Reactive Protein Total Protein 4.6 L Albumin 2.0 L Triglycerides Arterial Blood Glucose Arterial Blood Ionized Calcium Urine Creatinine Urine Chloride Vancomycin Trough Coronavirus (PCR) Crossmatch See Detail 07/24/20 07/25/20 07/25/20 20:40 05:39 05:39 WBC 26.6 H RBC 2.79 L Hgb 8.5 L Hct 25.6 L MCHC RDW 16.1 H Plt Count Lymph % (Auto) [place] % (Auto) Lymph # (Auto) [place] # (Auto) Eos # (Auto) Baso # (Auto) Seg Neutrophils % Seg Neuts % (Manual) 72.0 H Lymphocytes % (Manual) 2.0 L Monocytes % (Manual) Basophils % (Manual) 3.0 H Nucleated RBC % 1.0 H Seg Neutrophils # Seg Neutrophils # Man 19.2 H Lymphocytes # (Manual) 0.5 L Monocytes # (Manual) 1.6 H Eosinophils # (Manual) 0.5 H Basophils # (Manual) 0.8 H PT 15.3 H INR 1.21 H APTT D-Dimer Heparin Anti-Xa Level ABG pH POC ABG pCO2 POC ABG pO2 ABG pO2 ABG HCO3 ABG O2 Saturation ABG Base Excess ABG Hemoglobin ABG Oxyhemoglobin ABG Sodium ABG Potassium ABG Chloride ABG Glucose Oxyhemoglobin Carboxyhemoglobin Sodium Potassium Chloride Carbon Dioxide BUN 55 H Creatinine 2.9 H Glucose POC Glucose Lactic Acid Calcium Phosphorus Magnesium Ferritin Direct Bilirubin AST ALT Alkaline Phosphatase Lactate Dehydrogenase Total Creatine Kinase C-Reactive Protein Total Protein Albumin Triglycerides Arterial Blood Glucose Arterial Blood Ionized Calcium Urine Creatinine Urine Chloride Vancomycin Trough Coronavirus (PCR) Crossmatch 07/25/20 07/26/20 07/26/20 17:22 08:46 08:46 WBC RBC Hgb Hct MCHC RDW Plt Count Lymph % (Auto) [place] % (Auto) Lymph # (Auto) [place] # (Auto) Eos # (Auto) Baso # (Auto) Seg Neutrophils % Seg Neuts % (Manual) Lymphocytes % (Manual) Monocytes % (Manual) Basophils % (Manual) Nucleated RBC % Seg Neutrophils # Seg Neutrophils # Man Lymphocytes # (Manual) Monocytes # (Manual) Eosinophils # (Manual) Basophils # (Manual) PT INR APTT D-Dimer Heparin Anti-Xa Level ABG pH POC ABG pCO2 POC ABG pO2 ABG pO2 ABG HCO3 ABG O2 Saturation ABG Base Excess ABG Hemoglobin ABG Oxyhemoglobin ABG Sodium ABG Potassium ABG Chloride ABG Glucose Oxyhemoglobin Carboxyhemoglobin Sodium Potassium Chloride Carbon Dioxide 31 H BUN 37 H Creatinine 2.2 H Glucose POC Glucose 65 L Lactic Acid Calcium 8.2 L Phosphorus Magnesium Ferritin Direct Bilirubin AST ALT Alkaline Phosphatase Lactate Dehydrogenase Total Creatine Kinase C-Reactive Protein Total Protein Albumin Triglycerides 166 H Arterial Blood Glucose Arterial Blood Ionized Calcium Urine Creatinine Urine Chloride Vancomycin Trough Coronavirus (PCR) Crossmatch 07/26/20 07/27/20 07/27/20 Unknown 04:00 07:09 WBC 24.6 H 27.1 H RBC 2.68 L 2.74 L Hgb 8.3 L 8.3 L Hct 24.7 L 25.3 L MCHC RDW 16.3 H 17.2 H Plt Count Lymph % (Auto) [place] % (Auto) Lymph # (Auto) [place] # (Auto) Eos # (Auto) Baso # (Auto) Seg Neutrophils % Seg Neuts % (Manual) 82.0 H 85.0 H Lymphocytes % (Manual) 5.0 L 4.0 L Monocytes % (Manual) 8.0 H Basophils % (Manual) Nucleated RBC % Seg Neutrophils # Seg Neutrophils # Man 20.2 H 23.0 H Lymphocytes # (Manual) 1.1 L Monocytes # (Manual) 2.0 H 1.6 H Eosinophils # (Manual) 0.7 H 1.1 H Basophils # (Manual) 0.3 H PT INR APTT D-Dimer Heparin Anti-Xa Level ABG pH POC ABG pCO2 POC ABG pO2 ABG pO2 ABG HCO3 ABG O2 Saturation ABG Base Excess ABG Hemoglobin ABG Oxyhemoglobin ABG Sodium ABG Potassium ABG Chloride ABG Glucose Oxyhemoglobin Carboxyhemoglobin Sodium Potassium Chloride Carbon Dioxide BUN Creatinine Glucose POC Glucose 115 H Lactic Acid Calcium Phosphorus Magnesium Ferritin Direct Bilirubin AST ALT Alkaline Phosphatase Lactate Dehydrogenase Total Creatine Kinase C-Reactive Protein Total Protein Albumin Triglycerides Arterial Blood Glucose Arterial Blood Ionized Calcium Urine Creatinine Urine Chloride Vancomycin Trough Coronavirus (PCR) Crossmatch 07/27/20 07/27/20 07/28/20 21:45 22:36 00:05 WBC RBC Hgb 6.4 L Hct 19.8 L* MCHC RDW Plt Count Lymph % (Auto) [place] % (Auto) Lymph # (Auto) [place] # (Auto) Eos # (Auto) Baso # (Auto) Seg Neutrophils % Seg Neuts % (Manual) Lymphocytes % (Manual) Monocytes % (Manual) Basophils % (Manual) Nucleated RBC % Seg Neutrophils # Seg Neutrophils # Man Lymphocytes # (Manual) Monocytes # (Manual) Eosinophils # (Manual) Basophils # (Manual) PT INR APTT D-Dimer Heparin Anti-Xa Level ABG pH POC ABG pCO2 POC ABG pO2 ABG pO2 ABG HCO3 ABG O2 Saturation ABG Base Excess ABG Hemoglobin ABG Oxyhemoglobin ABG Sodium ABG Potassium ABG Chloride ABG Glucose Oxyhemoglobin Carboxyhemoglobin Sodium Potassium Chloride Carbon Dioxide BUN Creatinine Glucose POC Glucose 124 H Lactic Acid Calcium Phosphorus Magnesium Ferritin Direct Bilirubin AST ALT Alkaline Phosphatase Lactate Dehydrogenase Total Creatine Kinase C-Reactive Protein Total Protein Albumin Triglycerides Arterial Blood Glucose Arterial Blood Ionized Calcium Urine Creatinine Urine Chloride Vancomycin Trough Coronavirus (PCR) Crossmatch See Detail 07/28/20 07/28/20 07/28/20 04:00 06:27 12:24 WBC 30.3 H RBC 2.35 L Hgb 7.2 L Hct 21.2 L MCHC RDW 16.8 H Plt Count Lymph % (Auto) [place] % (Auto) Lymph # (Auto) [place] # (Auto) Eos # (Auto) Baso # (Auto) Seg Neutrophils % Seg Neuts % (Manual) Lymphocytes % (Manual) Monocytes % (Manual) Basophils % (Manual) Nucleated RBC % Seg Neutrophils # Seg Neutrophils # Man Lymphocytes # (Manual) Monocytes # (Manual) Eosinophils # (Manual) Basophils # (Manual) PT INR APTT D-Dimer Heparin Anti-Xa Level ABG pH POC ABG pCO2 POC ABG pO2 ABG pO2 ABG HCO3 ABG O2 Saturation ABG Base Excess ABG Hemoglobin ABG Oxyhemoglobin ABG Sodium ABG Potassium ABG Chloride ABG Glucose Oxyhemoglobin Carboxyhemoglobin Sodium Potassium Chloride Carbon Dioxide BUN Creatinine Glucose POC Glucose 107 H 110 H Lactic Acid Calcium Phosphorus Magnesium Ferritin Direct Bilirubin AST ALT Alkaline Phosphatase Lactate Dehydrogenase Total Creatine Kinase C-Reactive Protein Total Protein Albumin Triglycerides Arterial Blood Glucose Arterial Blood Ionized Calcium Urine Creatinine Urine Chloride Vancomycin Trough Coronavirus (PCR) Crossmatch 07/28/20 07/28/20 07/28/20 14:31 18:19 23:33 WBC RBC Hgb Hct MCHC RDW Plt Count Lymph % (Auto) [place] % (Auto) Lymph # (Auto) [place] # (Auto) Eos # (Auto) Baso # (Auto) Seg Neutrophils % Seg Neuts % (Manual) Lymphocytes % (Manual) Monocytes % (Manual) Basophils % (Manual) Nucleated RBC % Seg Neutrophils # Seg Neutrophils # Man Lymphocytes # (Manual) Monocytes # (Manual) Eosinophils # (Manual) Basophils # (Manual) PT INR APTT D-Dimer Heparin Anti-Xa Level ABG pH 7.333 L POC ABG pCO2 POC ABG pO2 ABG pO2 68.0 L ABG HCO3 ABG O2 Saturation 92.4 L ABG Base Excess -2.7 L ABG Hemoglobin 9.0 L ABG Oxyhemoglobin ABG Sodium ABG Potassium ABG Chloride ABG Glucose Oxyhemoglobin 89.9 L Carboxyhemoglobin Sodium Potassium Chloride Carbon Dioxide BUN Creatinine Glucose POC Glucose 117 H 113 H Lactic Acid Calcium Phosphorus Magnesium Ferritin Direct Bilirubin AST ALT Alkaline Phosphatase Lactate Dehydrogenase Total Creatine Kinase C-Reactive Protein Total Protein Albumin Triglycerides Arterial Blood Glucose Arterial Blood Ionized Calcium Urine Creatinine Urine Chloride Vancomycin Trough Coronavirus (PCR) Crossmatch 07/28/20 07/29/20 07/29/20 Unknown 04:39 04:39 WBC 38.6 H RBC 2.15 L Hgb 6.6 L Hct 19.9 L* MCHC RDW 17.5 H Plt Count Lymph % (Auto) 3.2 L [place] % (Auto) Lymph # (Auto) [place] # (Auto) 2.7 H Eos # (Auto) 0.8 H Baso # (Auto) 0.4 H Seg Neutrophils % 86.5 H Seg Neuts % (Manual) Lymphocytes % (Manual) Monocytes % (Manual) Basophils % (Manual) Nucleated RBC % Seg Neutrophils # 33.4 H Seg Neutrophils # Man Lymphocytes # (Manual) Monocytes # (Manual) Eosinophils # (Manual) Basophils # (Manual) PT INR APTT D-Dimer Heparin Anti-Xa Level ABG pH POC ABG pCO2 POC ABG pO2 ABG pO2 ABG HCO3 ABG O2 Saturation ABG Base Excess ABG Hemoglobin ABG Oxyhemoglobin ABG Sodium ABG Potassium ABG Chloride ABG Glucose Oxyhemoglobin Carboxyhemoglobin Sodium 135 L Potassium 3.2 L 3.1 L Chloride Carbon Dioxide BUN 35 H 42 H Creatinine 2.3 H 2.5 H Glucose 123 H 109 H POC Glucose Lactic Acid Calcium 7.2 L 7.5 L Phosphorus Magnesium Ferritin Direct Bilirubin AST ALT Alkaline Phosphatase Lactate Dehydrogenase Total Creatine Kinase C-Reactive Protein Total Protein Albumin Triglycerides Arterial Blood Glucose Arterial Blood Ionized Calcium Urine Creatinine Urine Chloride Vancomycin Trough Coronavirus (PCR) Crossmatch 07/29/20 07/29/20 07/29/20 05:36 11:51 17:42 WBC RBC Hgb Hct MCHC RDW Plt Count Lymph % (Auto) [place] % (Auto) Lymph # (Auto) [place] # (Auto) Eos # (Auto) Baso # (Auto) Seg Neutrophils % Seg Neuts % (Manual) Lymphocytes % (Manual) Monocytes % (Manual) Basophils % (Manual) Nucleated RBC % Seg Neutrophils # Seg Neutrophils # Man Lymphocytes # (Manual) Monocytes # (Manual) Eosinophils # (Manual) Basophils # (Manual) PT INR APTT D-Dimer Heparin Anti-Xa Level ABG pH POC ABG pCO2 POC ABG pO2 ABG pO2 ABG HCO3 ABG O2 Saturation ABG Base Excess ABG Hemoglobin ABG Oxyhemoglobin ABG Sodium ABG Potassium ABG Chloride ABG Glucose Oxyhemoglobin Carboxyhemoglobin Sodium Potassium Chloride Carbon Dioxide BUN Creatinine Glucose POC Glucose 111 H 127 H 117 H Lactic Acid Calcium Phosphorus Magnesium Ferritin Direct Bilirubin AST ALT Alkaline Phosphatase Lactate Dehydrogenase Total Creatine Kinase C-Reactive Protein Total Protein Albumin Triglycerides Arterial Blood Glucose Arterial Blood Ionized Calcium Urine Creatinine Urine Chloride Vancomycin Trough Coronavirus (PCR) Crossmatch 07/29/20 07/30/20 07/30/20 23:07 17:32 23:13 WBC RBC Hgb Hct MCHC RDW Plt Count Lymph % (Auto) [place] % (Auto) Lymph # (Auto) [place] # (Auto) Eos # (Auto) Baso # (Auto) Seg Neutrophils % Seg Neuts % (Manual) Lymphocytes % (Manual) Monocytes % (Manual) Basophils % (Manual) Nucleated RBC % Seg Neutrophils # Seg Neutrophils # Man Lymphocytes # (Manual) Monocytes # (Manual) Eosinophils # (Manual) Basophils # (Manual) PT INR APTT D-Dimer Heparin Anti-Xa Level ABG pH POC ABG pCO2 POC ABG pO2 ABG pO2 ABG HCO3 ABG O2 Saturation ABG Base Excess ABG Hemoglobin ABG Oxyhemoglobin ABG Sodium ABG Potassium ABG Chloride ABG Glucose Oxyhemoglobin Carboxyhemoglobin Sodium Potassium Chloride Carbon Dioxide BUN Creatinine Glucose POC Glucose 116 H 107 H Lactic Acid Calcium Phosphorus Magnesium Ferritin Direct Bilirubin AST ALT Alkaline Phosphatase Lactate Dehydrogenase Total Creatine Kinase C-Reactive Protein Total Protein Albumin Triglycerides Arterial Blood Glucose Arterial Blood Ionized Calcium Urine Creatinine Urine Chloride Vancomycin Trough Coronavirus (PCR) Crossmatch See Detail 07/30/20 07/31/20 07/31/20 Unknown 05:28 09:00 WBC 30.8 H RBC 2.39 L Hgb 7.3 L Hct 21.9 L MCHC RDW 16.7 H Plt Count Lymph % (Auto) [place] % (Auto) Lymph # (Auto) [place] # (Auto) Eos # (Auto) Baso # (Auto) Seg Neutrophils % Seg Neuts % (Manual) 85.0 H Lymphocytes % (Manual) 1.0 L Monocytes % (Manual) Basophils % (Manual) Nucleated RBC % 1.0 H Seg Neutrophils # Seg Neutrophils # Man 26.2 H Lymphocytes # (Manual) 0.3 L Monocytes # (Manual) 1.8 H Eosinophils # (Manual) Basophils # (Manual) PT INR APTT D-Dimer Heparin Anti-Xa Level ABG pH 7.241 L POC ABG pCO2 52.8 H POC ABG pO2 63.3 L ABG pO2 ABG HCO3 ABG O2 Saturation ABG Base Excess ABG Hemoglobin 7.6 L ABG Oxyhemoglobin ABG Sodium 133.6 L ABG Potassium ABG Chloride ABG Glucose 114 H Oxyhemoglobin Carboxyhemoglobin Sodium Potassium Chloride Carbon Dioxide BUN Creatinine Glucose POC Glucose Lactic Acid Calcium Phosphorus Magnesium Ferritin Direct Bilirubin AST ALT Alkaline Phosphatase Lactate Dehydrogenase Total Creatine Kinase C-Reactive Protein Total Protein Albumin Triglycerides 184 H Arterial Blood Glucose 114 H Arterial Blood Ionized Calcium 4.4 L Urine Creatinine Urine Chloride Vancomycin Trough Coronavirus (PCR) Crossmatch 07/31/20 07/31/20 07/31/20 09:00 12:00 16:17 WBC RBC Hgb Hct MCHC RDW Plt Count Lymph % (Auto) [place] % (Auto) Lymph # (Auto) [place] # (Auto) Eos # (Auto) Baso # (Auto) Seg Neutrophils % Seg Neuts % (Manual) Lymphocytes % (Manual) Monocytes % (Manual) Basophils % (Manual) Nucleated RBC % Seg Neutrophils # Seg Neutrophils # Man Lymphocytes # (Manual) Monocytes # (Manual) Eosinophils # (Manual) Basophils # (Manual) PT INR APTT D-Dimer Heparin Anti-Xa Level ABG pH POC ABG pCO2 POC ABG pO2 148.6 H ABG pO2 ABG HCO3 ABG O2 Saturation ABG Base Excess ABG Hemoglobin 6.7 L ABG Oxyhemoglobin ABG Sodium 132.3 L ABG Potassium ABG Chloride ABG Glucose 115 H Oxyhemoglobin Carboxyhemoglobin Sodium 136 L Potassium Chloride Carbon Dioxide BUN 46 H Creatinine 2.4 H Glucose POC Glucose 106 H Lactic Acid Calcium 7.7 L Phosphorus Magnesium Ferritin Direct Bilirubin AST ALT Alkaline Phosphatase Lactate Dehydrogenase Total Creatine Kinase C-Reactive Protein Total Protein Albumin Triglycerides Arterial Blood Glucose 115 H Arterial Blood Ionized Calcium 4.2 L Urine Creatinine Urine Chloride Vancomycin Trough Coronavirus (PCR) Crossmatch 07/31/20 08/01/20 08/01/20 17:05 04:48 05:00 WBC RBC Hgb Hct MCHC RDW Plt Count Lymph % (Auto) [place] % (Auto) Lymph # (Auto) [place] # (Auto) Eos # (Auto) Baso # (Auto) Seg Neutrophils % Seg Neuts % (Manual) Lymphocytes % (Manual) Monocytes % (Manual) Basophils % (Manual) Nucleated RBC % Seg Neutrophils # Seg Neutrophils # Man Lymphocytes # (Manual) Monocytes # (Manual) Eosinophils # (Manual) Basophils # (Manual) PT INR APTT D-Dimer Heparin Anti-Xa Level ABG pH POC ABG pCO2 POC ABG pO2 111.5 H ABG pO2 ABG HCO3 ABG O2 Saturation ABG Base Excess ABG Hemoglobin 7.1 L ABG Oxyhemoglobin ABG Sodium 131.4 L ABG Potassium ABG Chloride ABG Glucose 107 H Oxyhemoglobin Carboxyhemoglobin Sodium 135 L Potassium Chloride Carbon Dioxide BUN 56 H Creatinine 2.6 H Glucose 117 H POC Glucose 119 H Lactic Acid Calcium 7.8 L Phosphorus Magnesium Ferritin Direct Bilirubin AST ALT Alkaline Phosphatase Lactate Dehydrogenase Total Creatine Kinase C-Reactive Protein Total Protein Albumin Triglycerides Arterial Blood Glucose 107 H Arterial Blood Ionized Calcium 4.3 L Urine Creatinine Urine Chloride Vancomycin Trough Coronavirus (PCR) Crossmatch 08/01/20 08/01/20 08/01/20 05:00 11:53 17:38 WBC 22.0 H RBC 2.26 L Hgb 6.8 L Hct 20.5 L MCHC RDW 16.6 H Plt Count Lymph % (Auto) [place] % (Auto) Lymph # (Auto) [place] # (Auto) Eos # (Auto) Baso # (Auto) Seg Neutrophils % Seg Neuts % (Manual) Lymphocytes % (Manual) Monocytes % (Manual) Basophils % (Manual) Nucleated RBC % Seg Neutrophils # Seg Neutrophils # Man Lymphocytes # (Manual) Monocytes # (Manual) Eosinophils # (Manual) Basophils # (Manual) PT INR APTT D-Dimer Heparin Anti-Xa Level ABG pH POC ABG pCO2 POC ABG pO2 ABG pO2 ABG HCO3 ABG O2 Saturation ABG Base Excess ABG Hemoglobin ABG Oxyhemoglobin ABG Sodium ABG Potassium ABG Chloride ABG Glucose Oxyhemoglobin Carboxyhemoglobin Sodium Potassium Chloride Carbon Dioxide BUN Creatinine Glucose POC Glucose 107 H 111 H Lactic Acid Calcium Phosphorus Magnesium Ferritin Direct Bilirubin AST ALT Alkaline Phosphatase Lactate Dehydrogenase Total Creatine Kinase C-Reactive Protein Total Protein Albumin Triglycerides Arterial Blood Glucose Arterial Blood Ionized Calcium Urine Creatinine Urine Chloride Vancomycin Trough Coronavirus (PCR) Crossmatch 08/01/20 08/02/20 08/02/20 23:49 05:11 05:20 WBC 17.2 H RBC 2.73 L Hgb 8.3 L Hct 24.6 L MCHC RDW 16.0 H Plt Count Lymph % (Auto) [place] % (Auto) Lymph # (Auto) [place] # (Auto) Eos # (Auto) Baso # (Auto) Seg Neutrophils % Seg Neuts % (Manual) Lymphocytes % (Manual) Monocytes % (Manual) Basophils % (Manual) Nucleated RBC % Seg Neutrophils # Seg Neutrophils # Man Lymphocytes # (Manual) Monocytes # (Manual) Eosinophils # (Manual) Basophils # (Manual) PT INR APTT D-Dimer Heparin Anti-Xa Level ABG pH POC ABG pCO2 POC ABG pO2 ABG pO2 ABG HCO3 ABG O2 Saturation ABG Base Excess ABG Hemoglobin ABG Oxyhemoglobin ABG Sodium ABG Potassium ABG Chloride ABG Glucose Oxyhemoglobin Carboxyhemoglobin Sodium Potassium Chloride Carbon Dioxide BUN Creatinine Glucose POC Glucose 107 H 119 H Lactic Acid Calcium Phosphorus Magnesium Ferritin Direct Bilirubin AST ALT Alkaline Phosphatase Lactate Dehydrogenase Total Creatine Kinase C-Reactive Protein Total Protein Albumin Triglycerides Arterial Blood Glucose Arterial Blood Ionized Calcium Urine Creatinine Urine Chloride Vancomycin Trough Coronavirus (PCR) Crossmatch 08/02/20 11:24 WBC RBC Hgb Hct MCHC RDW Plt Count Lymph % (Auto) [place] % (Auto) Lymph # (Auto) [place] # (Auto) Eos # (Auto) Baso # (Auto) Seg Neutrophils % Seg Neuts % (Manual) Lymphocytes % (Manual) Monocytes % (Manual) Basophils % (Manual) Nucleated RBC % Seg Neutrophils # Seg Neutrophils # Man Lymphocytes # (Manual) Monocytes # (Manual) Eosinophils # (Manual) Basophils # (Manual) PT INR APTT D-Dimer Heparin Anti-Xa Level ABG pH POC ABG pCO2 POC ABG pO2 ABG pO2 ABG HCO3 ABG O2 Saturation ABG Base Excess ABG Hemoglobin ABG Oxyhemoglobin ABG Sodium ABG Potassium ABG Chloride ABG Glucose Oxyhemoglobin Carboxyhemoglobin Sodium Potassium Chloride Carbon Dioxide BUN Creatinine Glucose POC Glucose 129 H Lactic Acid Calcium Phosphorus Magnesium Ferritin Direct Bilirubin AST ALT Alkaline Phosphatase Lactate Dehydrogenase Total Creatine Kinase C-Reactive Protein Total Protein Albumin Triglycerides Arterial Blood Glucose Arterial Blood Ionized Calcium Urine Creatinine Urine Chloride Vancomycin Trough Coronavirus (PCR) Crossmatch Chest x-ray: pending Allied health notes reviewed: nursing
--- NOTE | 2020-08-02 14:44 | Procedure Note ---
Date of procedure: 08/02/20 Pre-op diagnosis: GIRISH on Dialysis Post-op diagnosis: same Procedure: RIJ TRIALYSIS CATHETER PLACEMENT OVER WIRE (Full dictation # [id number]) Please see dictated notes for full details
--- NOTE | 2020-08-02 14:55 | Operative Report ---
PROCEDURE: Right IJ Trialysis catheter placement over wire. CONSENT: Informed and witnessed. The consent was given by the patient's . INDICATIONS: Need for continued hemodialysis in a patient with a prior left femoral Vas-Cath that is now malfunctioning, but also needs to be changed in light of the risk of infection. COMPLICATIONS: No immediate procedural complications. DESCRIPTION OF PROCEDURE: After informed and witnessed consent as well as premedication, the patient had been on a fentanyl drip and a propofol drip during the procedure, the area of the right upper anterior triangle of the neck was sterilely prepped and draped. Full barrier protection was used including sterile gown, gloves, hat, mask and full barrier drape. The right IJ catheter that was already in place was sterilely prepped also with multiple rounds of chlorhexidine swabs used to clean the hob and the lumens. Prior to changing out my gloves and prior to placing the overall barrier protection. The wire was threaded through the distal port line of the right IJ central line and advanced into the superior vena cava. The right IJ central venous line catheter was then slowly teased out over the wire, making sure to ensure that pressure was placed over the stoma at the final time of retraction, but also making sure that there was minimal blood loss. The stoma was then dilated with a Trialysis catheter dilator provided in the kit. The Trialysis catheter was then advanced over the wire and sutured in place using 0 silk sutures. The patient tolerated the procedure well. Blood loss was minimal. A post-procedure chest x-ray is pending, but good venous looking blood return was obtained when the Trialysis catheter was flushed. [facility]# [id number] DREA/MADONNA
--- NOTE | 2020-08-02 15:37 | XRay Report ---
CHEST 1 VIEW 08/02/2020 2:31 PM INDICATION / CLINICAL INFORMATION: line placement. COMPARISON: Exam done earlier on 08/02/2020 FINDINGS: SUPPORT DEVICES: Right IJ central venous catheter has been placed with tip projecting over the superi or cavoatrial junction. HEART / MEDIASTINUM: Stable. LUNGS / PLEURA: Stable patchy bilateral pulmonary opacities. No pneumothorax. ADDITIONAL FINDINGS: No significant additional findings. IMPRESSION: 1. Right IJ central venous catheter tip projects over superior cavoatrial junction. Signer Name: Vishal Harrison MD Signed: 08/02/2020 3:32 PM Workstation Name: [id number]
--- NOTE | 2020-08-02 16:14 | Progress Note ---
Assessment and Plan Assessment and plan: -S/p dexamethasone and remdesivir therapy, contact/droplet isolation, vitamin C/vitamin D/zinc, anticoagulation per protocol, trend inflammatory markers -Wean mechanical ventilation as tolerated, VAP bundle -HD per nephrology -Transfuse for hemaglobin less than 7, s/p 10 units PRBC during stay -Nephrology, ID, heme-onc, GI , CCM, cardiology consulted,appreciate recommendations -BCR-ABL mutation testing pending -Per infectious disease: s/p ampicillin. Plan to exchange out lines if pressor requirement changes -Monitor leukocytosis and fevers -s/p RJ to trialysis line exchange over wire 08/02 -If patient blood cultures were to turn positive he will need an exchange over line for his vascular access per vascular surgery. -Hold systemic anticoagulation in setting of severe anemia -Amiodarone for rate control -s/p debridement by Dr. Kirk, WOCN consulted, WC per nursing, 07/27 debridement repeated -07/22 COVID-19 PCR negative, discontinued contact/droplet isolation DVT prophylaxis: GI prophylaxis, heparin subcu, SCDs to bilateral LE while in bed Disposition: ICU, ?placement ?trach/peg ?Ltach The high probability of a clinically significant, sudden or life threatening deterioration of the [multi] system(s) required my full and direct attention, intervention and personal management. The aggregate critical care time was [35] minutes. This time is in addition to time spent performing reported procedures but includes the following: [x] Data Review and interpretation [x] Patient assessment and monitoring of vital signs [x] Documentation [x] Medication orders and management History Interval history: 59-year-old white male who was admitted for pneumonia secondary to Covid with associated respiratory failure and sepsis. Severe septic shock COVID-19 pneumonia Sacral wound, stage 4 Leukemoid reaction Acute metabolic encephalopathy Acute hypoxic respiratory failure Enterococcus bacteremia Pneumomediastinum Acute kidney injury likely secondary to acute tubular necrosis which progressed to hemodialysis SVT/proximal atrial fibrillation Elevated LFTs Anemia likely due to severe sepsis had declining renal function Morbid obesity Leukocytosis Hypoalbuminemia Sacral decubitus: s/p debridements 06/18: Patient got intubated overnight. Patient was placed on BiPAP to maintain oxygenation with 100% FiO2 but apparently he found to take off his argueta which made his oxygen saturation go down at 60s/50s and patient was found altered mental status. Code met was called immediately. Patient was transferred to ICU and intubated, patient currently on 2 pressors, intubated with 100% FiO2, renal function noted to be decline, nephrology consulted. Discussed with [place] physician Dr. Thompson and requested call back on Saturday. Poor prognosis, continue to monitor with aggressive supportive care. Also called family/ to update clinical status. 06/19: Repeat COVID test was positive. cont cefepime, remdesivir per ID recommendation. follow inflammatory markers, cbc, bmp. placed on heparin drip for atrial fib 06/20: Remains on mechanical ventilation, on 2 pressors, on heparin drip. discussed with and daughter by phone. Renal function declining. cont supportive care for now. 06/21: Renal function cont to decline, urine outpt sig decreased. started on lasix 80mg BID, plan to follow urine output, if no improvement patient need to start on HD. called and daughter today. updated all clinical details 06/22: Renal function continues to decline with uremia and hyperkalemia. Will need to proceed with hemodialysis. Nephrology discussed with the family and they agrees for the hemodialysis. Patient remains on pressor support and mechanical ventilation. Vas-Cath placed today by vascular started on hemodialysis today. 06/23: 2nd round of HD today, remains on 2 pressors. per RN not tolerating TF, has no record of BM since 06/18. start on stool softner. follow cbc/bmp. updated family ( and daughter) by phone -all question answered to best of my knowledge and to their satisfaction. Patient remains critically ill with a very poor prognosis. 06/24: Continue supportive care, Very poor prognosis, Former Hand to discuss with family in am due to the futility of the condition. 06/25/2020 continue supportive care very poor prognosis 06/26/2020 continue supportive care very poor prognosis family updated 06/27/2020 continue supportive care and weaning if possible 06/28/2020 continue supportive care, talk with at length 06/29: Resumed care. K level persistently high. give one dose of bicarbonate, plan for HD today, recheck k after HD. updated family by phone 06/30: updated family by phone. Patient remains on amiodarone drip and vasopressin. Getting HD at the bedside. Tolerating tube feeding at low rate. 07/01: Hb dropped to 6.4 today, transfuse one unit PRBC. patient is off pressor today, remains on amioderone. cont to monitor 07/02: Called patient and updated clinical details. Patient remains critically ill, still intubated. Patient's oxygen requirement and PEEP pressure has went down. Continue weaning protocol per critical care recommendation. Patient remains off pressor. Continue to wean off from amiodarone and plan to rate control with p.o. medications. Tolerating tube feeding. H&H stable today. Order for stool for occult blood. Monitor H&H and BMP. Continue to follow clinically 07/03: discussed with [place] physician today. Patient back on 100percent Fio2 since last night. planned for emergent Hd today. spiked fever, start IV Cefepime + Vancomycin renally dosed. Restarted Levophed today, remains on amiodarone drip. Patient family was updated by critical care attending today. 07/04: Patient has hemodialysis yesterday and also plan for today for volume overload and pulmonary edema. Patient currently on 80% FiO2. Remains on Levophed and amiodarone. Hemoglobin dropped to 6.7 without any evidence of active bleeding. LFTs remain stable. Repeat Covid test on 06/30 and 07/03 remains positive. Will transfuse another unit of packed RBC today. Called family for update -explained family that patient is critically ill with very poor prognosis. 07/05: Patient on 70% FiO2 with PEEP of 14. h/h stable after transfusion. hyperkalemia improved, cont sodiumbicarbonate pill with TF. follow BMP. off levophed today, remains on amioderone. poor prognosis. 07/06: Patient remains on amiodarone drip, maintaining BP without any pressor. FiO2 requirement trended down to 60% with PEEP of 14. Continue to follow clinic ally. Plan to wean off amiodarone drip as tolerated. Wean off from sedation as tolerated. Updated family. Patient remains critically ill with poor prognosis. 07/07: Called family for update. Off amiodarone drip today, patient also off pressor. FiO2 requirement trended up again to 80-100%. Continue to provide supportive care, monitor clinically. Having difficulty to wean off from the vent support. Patient is persistently positive for COVID-19 and COVID-19 antibody is nonreactive. Patient remains critically ill with very poor prognosis. 07/08: Continue supportive care. 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 Prognosis remains guarded to poor. Management per team. Critical care time 35-minute 07/09/20 patient is tachycardic. Heart rate 121. Hemoglobin 7.3. Patient is having hemodialysis. Continue supportive care. Patient having difficulty to wean off from the vent support. Prognosis is poor. Nephrology and cardiology follow-up. Recheck CBC BMP in the morning. Continue current management. 07/10/20 patient seen and examined, remains on full ventilator patient is doing better. Patient is off pressor. heart rate 123. Hemoglobin 6.8 and hematocrit 20.7. WBC is 18.1. Continue supportive care. Patient having difficulty to wean off from the vent support. We will started on Zosyn 4.5 g IV every 8 hours. Will transfuse 1 unit of packed red blood cell. Prognosis is poor. Nephrology and cardiology follow up. Recheck CBC BMP in the morning 07/11: remains off vasopressor, h/h appropriately responded to 1 unit PRBC. HD today. Remain on MV with fiO2 at 70%. peep 10. No acute events reported overnight. 07/12: Patient remains in atrial fibrillation on the campus monitor, vasopressor support with Levophed and vasopressin, sedated with fentanyl and propofol. Vent settings: CMV 500/25/14/0.60. Patient remains hypercarbic on ABG 07/13: Patient remains on vasopressin, fentanyl and propofol with rectal tube in place. This morning some examination patient was on assist control 25/500/14/0.60. Patient received hemodialysis today. No acute events reported overnight. 07/14: Remains on vasopressin, fentanyl and propofol with tube in place. Rectal tu be in place with noted blood clots, GI consulted, on 07/13 H/H dropped from 8.7/27 to 7.4/22 and anticoagulation discontinued. This morning I spoke to his who still wishes for the patient to remain a full code despite update with continued use of vasopressor (vasopressin), current ventilatory support (CMV 500/25/14/0.60) and recent development of rectal bleeding. Patient's family requests an update from [facility] and GI. Cardio changed amio from PO to IV given elevated HR 07/15: Today the patient received a total of 5 units of PRBC and is still having bleeding through his rectal tube. CTA abdomen/pelvis is pending, patient remains on Levophed, fentanyl, propofol, vasopressin and received hemodialysis today. He was also hyperkalemic today to 6 and he received insulin and D50. Extensive conversation with family conducted by CCM and hospitalist and his and 2 daughters did visit him today at the bedside. 07/16: Continues with full ventilatory support. FMS still inplace with some loose bloody stool. Still on multiple pressors, Bilateral swollen and generalized anascara. Monitor H/H and transfuse as needed. Monitor K level. Discussed with family at bedside yesterday. 07/17: Continue supportive care, transfusion blood possible in am with HD, continue abx, very poor prognosis, blood pressure still labile. Discussed with nurse at bedside 07/18: CTA abdomen/pelvis completed, antibiotics changed to Zosyn per infectious disease, remains on mechanical ventilation 450/25/12/0.55 continue amiodarone drip for 24 more hours, blood culture grew Enterococcus. Remains sedated on propofol and fentanyl. Not on vasopressor support today 07/19: No acute events reported overnight, remains sedated with fentanyl and propofol and off vasopressor therapy today. 07/20: s/p debridement with surgery today, remains on fentanyl, propofol, Levophed and current vent settings 450/25/10/0.45. Patient will be transferred to a bariatric bed once available. 07/21: Continue current management, wean ventilator as tolerated, IV antibiotics deescalated to ampicillin. Per infectious disease no need to exchange/remove lines unless repeat blood cultures turn positive. The time my examination patient was sedated on fentanyl and propofol and remains off vasopressor support. 07/22: At the time my examination patient is sedated on fentanyl and propofol and remains off vasopressor support, repeat COVID-19 PCR negative. Patient remains on ampicillin. H/H remained stable and GI has signed off. Mechanical v entilation weaning as tolerated. 07/23. He remains sedated on fentanyl and propofol. On mechanical ventilation. On levophed. repeat COVID-19 PCR negative. Patient remains on ampicillin. H/H remained stable and GI has signed off. 07/24. He remains sedated and on mechanical ventilation. On levophed. repeat COVID-19 PCR negative. On ampicillin. ID recs appreciated. Labs reviewed 07/25: Patient remains sedated on fentanyl and Diprivan and remains on mechanical ventilation. Repeat CXR and still has leukocytosis. Patient is n.p.o. for trach and PEG with surgery. 07/26: Remains sedated on fentanyl and propofol. Remains on vasopressor support with Levophed. Current vent settings CMV 450/20/8/0.40. Patient is scheduled for PEG/trach with surgery. No acute events reported overnight. 07/27: Debridement with surgery to sacrum:, Activity restarted, remains sedated on propofol/fentanyl and Precedex support with Levophed. Current vent settings CMV 450/20/8/135. S/p trach/PEG with surgery 07/26. Patient remains afebrile however leukocytosis slightly worse today and he is still on his ampicillin. Patient was hypoglycemic overnight. 07/28: Patient remains sedated on propofol and fentanyl. Continue amiodarone drip for rate control. Patient be started on pressors of Levophed last evening. Patient currently with PSV/CPAP FiO2 35% PEEP of 8 and pressure support of 20. Wean mechanical ventilation as tolerated, VAP bundle. Continue hemodialysis per nephrology recommendations. Continue antibiotics per ID recommendations. Hold systemic anticoagulation in the setting of severe anemia. Patient with status post debridement on 07/27. 07/29: Continue sedation per pulmonary. Amiodarone drip for rate control. Continue vasopressors to maintain MAP > 65. Mechanical ventilation currently AC mode rate of 20 tidal volume 450, FiO2 35% and PEEP of 8. Wean mechanical ventilation as tolerated, VAP bundle. Continue hemodialysis per nephrology recommendations. Continue antibiotics per ID recommendations until 08/01/2020. Repeat blood cultures have been negative. Hold systemic anticoagulation in the setting of severe anemia. 07/30: Patient currently with AC mode rate of 14, tidal volume 450, FiO2 40% and PEEP of 8. Wean mechanical ventilation as tolerated, VAP bundle. Continue hemodialysis per nephrology recommendations. Continue antibiotics per ID recommendations. Hold systemic anticoagulation in the setting of severe anemia. 07/31: Patient currently with AC mode ventilation rate 30, tidal volume 450 FiO2 100%, pressure support 16 and PEEP of 8. Wean mechanical ventilation as tolerated, VAP bundle. Continue hemodialysis per nephrology recommendations. Continue antibiotics per ID recommendations. Patient currently on ampicillin. Hold systemic anticoagulation in the setting of severe anemia. Continue restraints for safety. Continue pressors to maintain MAP > 65. Awaiting family decision to discharge to LTAC. 08/01: If patient develops worsening sepsis ID would like to initiate vancomycin and cefepime, and [facility] would like to add vasopressin. The time my examination patient is on assist control 450/30/8/.60 with an ABG of 7.3/42/111/21 with a base excess of -4. Patient remains sedated on propofol and fentanyl with vasopressor support with Levophed. No acute events reported overnight. Per vascular surgery if patient's blood cultures are positive will consider a Vas- Cath exchange on a clean wire with ChloraPrep during the exchange and attempt to decrease bioburden. No acute events reported overnight. Patient's H/H today was 6.8/20.5 and he will receive 1 unit PRBC and we will recheck CBC in the a.m. and transfuse as needed. 08/02: Right IJ dialysis catheter changed over wire, per [facility] ok to transfer to LTAC after next HD session and ID started cefepime. The time my examination patient remains on vasopressin and Levophed. Remains on assist control 450/30/H/0.60 with a T-max of 100.7 overnight. His sputum is growing GNR. Hospitalist Physical - Physical exam Narrative exam: General appearance: Present: mild distress, well-nourished - EENT ENT: ulcerations - Respiratory Respiratory effort: normal Respiratory: bilateral: diminished - Cardiovascular Rhythm: regular Heart Sounds: Present: S1 & S2. Absent: systolic murmur, diastolic murmur - Extremities Extremities: no ischemia, pulses intact, pulses symmetrical, normal color Peripheral Pulses: within normal limits - Abdominal General gastrointestinal: soft, non-tender, non-distended, normal bowel sounds - Integumentary Integumentary: Present: dry, edema - Psychiatric Psychiatric: other (sedated) - Neurologic Neurologic: other (sedated) - Constitutional Vitals: Temp Pulse Resp BP Pulse Ox 98.9 F 73 30 H 106/53 97 08/02/20 12:34 08/02/20 16:00 08/02/20 16:00 08/02/20 16:00 08/02/20 16:00 General appearance: Present: no acute distress, well-nourished, other (Patient remains on mechanical ventilation) HEART Score - HEART Score Troponin: Troponin T < 0.010 ng/mL (0.00-0.029) 06/17/20 12:33 Results - Labs CBC & Chem 7: 08/02/20 05:20 08/01/20 05:00 Labs: Laboratory Last Values WBC 17.2 K/mm3 (4.5-11.0) H 08/02/20 05:20 RBC 2.73 M/mm3 (3.65-5.03) L 08/02/20 05:20 Hgb 8.3 gm/dl (11.8-15.2) L 08/02/20 05:20 Hct 24.6 % (35.5-45.6) L 08/02/20 05:20 MCV 90 fl (84-94) 08/02/20 05:20 MCH 30 pg (28-32) 08/02/20 05:20 MCHC 34 % (32-34) 08/02/20 05:20 RDW 16.0 % (13.2-15.2) H 08/02/20 05:20 Plt Count 227 K/mm3 (140-440) 08/02/20 05:20 Lymph % (Auto) 3.2 % (13.4-35.0) L 07/29/20 04:39 [place] % (Auto) 7.0 % (0.0-7.3) 07/29/20 04:39 Eos % (Auto) 2.1 % (0.0-4.3) 07/29/20 04:39 Baso % (Auto) 1.2 % (0.0-1.8) 07/29/20 04:39 Lymph # (Auto) 1.2 K/mm3 (1.2-5.4) 07/29/20 04:39 [place] # (Auto) 2.7 K/mm3 (0.0-0.8) H 07/29/20 04:39 Eos # (Auto) 0.8 K/mm3 (0.0-0.4) H 07/29/20 04:39 Baso # (Auto) 0.4 K/mm3 (0.0-0.1) H 07/29/20 04:39 Add Manual Diff Complete 07/31/20 09:00 Total Counted 100 07/31/20 09:00 Seg Neutrophils % 86.5 % (40.0-70.0) H 07/29/20 04:39 Seg Neuts % (Manual) 85.0 % (40.0-70.0) H 07/31/20 09:00 Band Neutrophils % 8.0 % 07/31/20 09:00 Lymphocytes % (Manual) 1.0 % (13.4-35.0) L 07/31/20 09:00 Reactive Lymphs % (Man) 1.0 % 06/23/20 04:00 Monocytes % (Manual) 6.0 % (0.0-7.3) 07/31/20 09:00 Eosinophils % (Manual) 4.0 % (0.0-4.3) 07/27/20 04:00 Basophils % (Manual) 1.0 % (0.0-1.8) 07/27/20 04:00 Metamyelocytes % 1.0 % 07/26/20 Unknown Myelocytes % 1.0 % 07/25/20 05:39 Promyelocytes % 0 % 07/17/20 15:25 Nucleated RBC % 1.0 % (0.0-0.9) H 07/31/20 09:00 Seg Neutrophils # 33.4 K/mm3 (1.8-7.7) H 07/29/20 04:39 Seg Neutrophils # Man 26.2 K/mm3 (1.8-7.7) H 07/31/20 09:00 Band Neutrophils # 2.5 K/mm3 07/31/20 09:00 Lymphocytes # (Manual) 0.3 K/mm3 (1.2-5.4) L 07/31/20 09:00 Abs React Lymphs (Man) 0.0 K/mm3 07/31/20 09:00 Monocytes # (Manual) 1.8 K/mm3 (0.0-0.8) H 07/31/20 09:00 Eosinophils # (Manual) 0.0 K/mm3 (0.0-0.4) 07/31/20 09:00 Basophils # (Manual) 0.0 K/mm3 (0.0-0.1) 07/31/20 09:00 Metamyelocytes # 0.0 K/mm3 07/31/20 09:00 Myelocytes # 0.0 K/mm3 07/31/20 09:00 Promyelocytes # 0.0 K/mm3 07/31/20 09:00 Blast Cells # 0.0 K/mm3 07/31/20 09:00 Pathologist Review 07/17/20 15:25 WBC Morphology Not Reportable 07/31/20 09:00 Hypersegmented Neuts Not Reportable 07/31/20 09:00 Hyposegmented Neuts Not Reportable 07/31/20 09:00 Hypogranular Neuts Not Reportable 07/31/20 09:00 Smudge Cells Not Reportable 07/31/20 09:00 Toxic Granulation Not Reportable 07/31/20 09:00 Toxic Vacuolation Not Reportable 07/31/20 09:00 Dohle Bodies Not Reportable 07/31/20 09:00 Pelger-Huet Anomaly Not Reportable 07/31/20 09:00 Carlito Rods Not Reportable 07/31/20 09:00 Platelet Estimate Consistent w auto 07/31/20 09:00 Clumped Platelets Not Reportable 07/31/20 09:00 Plt Clumps, EDTA Not Reportable 07/31/20 09:00 Large Platelets Not Reportable 07/31/20 09:00 Giant Platelets Not Reportable 07/31/20 09:00 Platelet Satelliting Not Reportable 07/31/20 09:00 Plt Morphology Comment Not Reportable 07/31/20 09:00 RBC Morphology Not Reportable 07/31/20 09:00 Dimorphic RBCs Not Reportable 07/31/20 09:00 Polychromasia Not Reportable 07/31/20 09:00 Hypochromasia Not Reportable 07/31/20 09:00 Poikilocytosis Not Reportable 07/31/20 09:00 Anisocytosis 1+ 07/31/20 09:00 Microcytosis Not Reportable 07/31/20 09:00 Macrocytosis Not Reportable 07/31/20 09:00 Spherocytes Not Reportable 07/31/20 09:00 Pappenheimer Bodies Not Reportable 07/31/20 09:00 Sickle Cells Not Reportable 07/31/20 09:00 Target Cells Not Reportable 07/31/20 09:00 Tear Drop Cells Not Reportable 07/31/20 09:00 Ovalocytes Not Reportable 07/31/20 09:00 Stomatocytes Few 07/27/20 04:00 Helmet Cells Not Reportable 07/31/20 09:00 [place] Bodies Not Reportable 07/31/20 09:00 [place] Rings Not Reportable 07/31/20 09:00 [place] Cells Not Reportable 07/31/20 09:00 Bite Cells Not Reportable 07/31/20 09:00 Crenated Cell Not Reportable 07/31/20 09:00 Elliptocytes Not Reportable 07/31/20 09:00 Acanthocytes (Spur) Not Reportable 07/31/20 09:00 Rouleaux Not Reportable 07/31/20 09:00 Hemoglobin C Crystals Not Reportable 07/31/20 09:00 Schistocytes Not Reportable 07/31/20 09:00 Malaria parasites Not Reportable 07/31/20 09:00 [place] Bodies Not Reportable 07/31/20 09:00 Hem Pathologist Commnt No 07/31/20 09:00 PT 15.3 Sec. (12.2-14.9) H 07/24/20 20:40 INR 1.21 (0.87-1.13) H 07/24/20 20:40 APTT 36.1 Sec. (24.2-36.6) 07/24/20 20:40 Fibrinogen 419 mg/dl (211-480) 07/15/20 08:21 D-Dimer 6608.00 ng/mlDDU (0-234) H 07/03/20 14:50 Heparin Anti-Xa Level < 0.10 U.I./ml (0.3-0.7) L 06/26/20 01:30 ABG pH 7.330 (7.320-7.450) 08/01/20 04:48 POC ABG pCO2 42.1 mmHg (32.0-48.0) 08/01/20 04:48 ABG pCO2 44.4 mm Hg 07/28/20 14:31 POC ABG pO2 111.5 mmHg (83-108) H 08/01/20 04:48 ABG pO2 68.0 mm Hg (80.0-90.0) L 07/28/20 14:31 POC ABG HCO3 21.7 08/01/20 04:48 ABG HCO3 23.1 mmol/L (20.0-26.0) 07/28/20 14:31 ABG O2 Saturation 98.4 (0-100) 08/01/20 04:48 ABG O2 Content 11.4 (0.0-44) 07/28/20 14:31 POC ABG Base Excess -3.9 08/01/20 04:48 ABG Base Excess -2.7 mmol/L (-2.0-3.0) L 07/28/20 14:31 ABG Hemoglobin 7.1 (12.0-17.5) L 08/01/20 04:48 ABG Oxyhemoglobin 97.6 (94-98) 07/31/20 16:17 ABG Carboxyhemoglobin 2.2 % (0.0-5.0) 07/28/20 14:31 ABG Methemoglobin 0.3 (0.0-1.5) 07/31/20 16:17 ABG Sodium 131.4 mmol/L (136.0-145.0) L 08/01/20 04:48 ABG Potassium 3.7 mmol/L (3.40-4.50) 08/01/20 04:48 ABG Chloride 101.0 mmol/L (98-107) 08/01/20 04:48 ABG Glucose 107 mg/dL (65-95) H 08/01/20 04:48 Oxyhemoglobin 89.9 % (95.0-99.0) L 07/28/20 14:31 Carboxyhemoglobin 1.4 (0.5-1.5) 07/31/20 16:17 FiO2 35 % 07/28/20 14:31 FiO2 % 60 08/01/20 04:48 Sodium 135 mmol/L (137-145) L 08/01/20 05:00 Potassium 4.0 mmol/L (3.6-5.0) 08/01/20 05:00 Chloride 99.0 mmol/L (98-107) 08/01/20 05:00 Carbon Dioxide 23 mmol/L (22-30) 08/01/20 05:00 Anion Gap 17 mmol/L 08/01/20 05:00 BUN 56 mg/dL (9-20) H 08/01/20 05:00 Creatinine 2.6 mg/dL (0.8-1.3) H 08/01/20 05:00 Estimated GFR 30 ml/min 08/01/20 05:00 BUN/Creatinine Ratio 22 % 08/01/20 05:00 Glucose 117 mg/dL (75-100) H 08/01/20 05:00 POC Glucose 129 mg/dL (70-105) H 08/02/20 11:24 Lactic Acid 0.90 mmol/L (0.7-2.0) 07/23/20 Unknown Calcium 7.8 mg/dL (8.4-10.2) L 08/01/20 05:00 Phosphorus 9.40 mg/dL (2.5-4.5) H 06/30/20 03:50 Magnesium 2.70 mg/dL (1.7-2.3) H 06/18/20 20:33 Ferritin 1171.0 ng/mL (30.0-300.0) H 07/03/20 14:50 Total Bilirubin 0.20 mg/dL (0.1-1.2) 07/24/20 06:40 Direct Bilirubin 0.5 mg/dL (0-0.2) H 07/05/20 08:21 Indirect Bilirubin 0.1 mg/dL 07/05/20 08:21 AST 46 units/L (5-40) H 07/24/20 06:40 ALT 74 units/L (7-56) H 07/24/20 06:40 Alkaline Phosphatase 180 units/L (35-129) H 07/24/20 06:40 Lactate Dehydrogenase 525 units/L (91-180) H 07/03/20 14:50 Total Creatine Kinase 618 units/L (55-170) H 06/29/20 Unknown Troponin T < 0.010 ng/mL (0.00-0.029) 06/17/20 12:33 C-Reactive Protein 31.50 mg/dL (0.00-1.30) H 07/03/20 14:50 Total Protein 4.6 g/dL (6.3-8.2) L 07/24/20 06:40 Albumin 2.0 g/dL (3.9-5) L 07/24/20 06:40 Albumin/Globulin Ratio 0.8 % 07/24/20 06:40 Triglycerides 184 mg/dL (2-149) H 07/30/20 Unknown Procalcitonin 6.05 ng/mL (<0.15) 07/13/20 06:59 Arterial Blood Glucose 107 mg/dL (65-95) H 08/01/20 04:48 Arterial Blood Ionized Calcium 4.3 mg/dL (4.6-5.3) L 08/01/20 04:48 Urine Color Yellow (Yellow) 06/17/20 15:57 Urine Turbidity Clear (Clear) 06/17/20 15:57 Urine pH 6.0 (5.0-7.0) 06/17/20 15:57 Ur Specific [place] 1.019 (1.003-1.030) 06/17/20 15:57 Urine Protein 30 mg/dl mg/dL (Negative) 06/17/20 15:57 Urine Glucose (UA) Neg mg/dL (Negative) 06/17/20 15:57 Urine Ketones Neg mg/dL (Negative) 06/17/20 15:57 Urine Blood Sm (Negative) 06/17/20 15:57 Urine Nitrite Neg (Negative) 06/17/20 15:57 Ur Reducing Substances Not Reportable 06/17/20 15:57 Urine Bilirubin Neg (Negative) 06/17/20 15:57 Urine Ictotest Not Reportable 06/17/20 15:57 Urine Urobilinogen < 2.0 mg/dL (<2.0) 06/17/20 15:57 Ur Leukocyte Esterase Neg (Negative) 06/17/20 15:57 Urine WBC (Auto) 1.0 /HPF (0.0-6.0) 06/17/20 15:57 Urine RBC (Auto) 2.0 /HPF (0.0-6.0) 06/17/20 15:57 Urine Mucus Few /HPF 06/17/20 15:57 Urine Creatinine 192.4 mg/dL (0.1-20.0) H 06/18/20 15:00 Urine Sodium 28 mmol/L 06/18/20 15:00 Urine Chloride 31.1 mmolL (110-250) L 06/18/20 15:00 Nasal Screen MRSA (PCR) Negative (Negative) 06/19/20 10:38 Vancomycin Trough 22.7 ug/mL (5.0-20.0) H 06/20/20 08:25 Random Vancomycin 13.5 ug/mL (0-40.0) 07/16/20 07:17 Coronavirus (PCR) Negative (Negative) 07/22/20 Unknown Hepatitis A IgM Ab Non-reactive (NonReactive) 06/22/20 17:00 Hep Bs Antigen Non-reactive (Negative) 06/22/20 17:00 Hep B Core IgM Ab Non-reactive (NonReactive) 06/22/20 17:00 Hepatitis C Antibody Non-reactive (NonReactive) 06/22/20 17:00 SARS-CoV-2 IgG Ab Nonreactive (NonReactive) 07/04/20 05:20 Blood Type A POSITIVE 07/30/20 23:13 Antibody Screen Negative 07/30/20 23:13 Crossmatch See Detail 07/30/20 23:13 Microbiology: Microbiology 07/31/20 16:16 Peripheral/Venous Blood Culture - Preliminary NO GROWTH AFTER 24 HOURS 07/31/20 16:15 Peripheral/Venous Blood Culture - Preliminary NO GROWTH AFTER 24 HOURS - Diagnostic Impressions Diagnostic Impressions: Echocardiogram 06/29/20 06:00 Transthoracic Echocardiogram Indication: A-fib BP: 105/47 HR: 99 Conclusions *The study is technically very difficult and limited due to poor acoustic windows. *Global left ventricular wall motion and contractility are within normal limits. *The estimated ejection fraction is 55-60%. *There is no pericardial effusion. Findings Procedure Info: The study quality is technically difficult. The study is technically limited due to poor acoustic windows. Left Ventricle: Global left ventricular wall motion and contractility are within normal limits. Global left ventricular systolic function is normal. The estimated ejection fraction is 55-60%. Left Atrium: The left atrium is not well visualized. Right Ventricle: The right ventricle is not well visualized. Right Atrium: The right atrium is not well visualized. Aortic Valve: The aortic valve is not well visualized. Mitral Valve: The mitral valve is not well visualized. Tricuspid Valve: The tricuspid valve is not well visualized. Pulmonic Valve: The pulmonic valve is not well visualized. Pericardium: There is no pericardial effusion. Venous: There is no change in the dimension of the inferior vena cava with respiration consistent with markedly increased right atrial pressure. Newell/IV: Voiding Method Incontinent Active Medications - Current Medications Current Medications: Generic Name Dose Route Start Last Admin Trade Name Freq PRN Reason Stop Dose Admin Acetaminophen 650 mg 06/17/20 14:17 08/02/20 06:00 Acetaminophen 325 Mg Tab PO 650 mg Q4H PRN Administration Pain MILD(1-3)/Fever >100.5/ROBERTS Albuterol 2.5 mg 07/19/20 12:15 Albuterol 2.5 Mg/3 Ml Nebu IH Q6HRT PRN Shortness Of Breath Alteplase, Recombinant 2 mg 07/27/20 18:40 Alteplase 2 Mg Inj IV PAM PRN LINE FLUSH Amiodarone HCl 200 mg 07/19/20 14:00 08/02/20 09:38 Amiodarone 200 Mg Tab PO 200 mg BID CONNOR Administration Lipase/Protease/Amylase 1 each 06/19/20 12:15 Lipase 10,500/Protease 25,000/Amylase 43,750 (Units) Dr Cap FEEDTUBE PRN PRN For Clogged Feeding Tube Ascorbic Acid 250 mg 06/17/20 22:00 08/02/20 09:38 Ascorbic Acid 250 Mg Tab PO 250 mg BID CONNOR Administration Cholecalciferol 1,000 unit 06/18/20 10:00 08/02/20 09:38 Cholecalciferol (Vit D3) 1000 Unit (25 Mcg) Tab PO 1,000 unit DAILY CONNOR Administration Dextrose 50 ml 07/26/20 22:00 07/27/20 06:42 Dextrose 50% In Water (25gm) 50 Ml Syringe IV 50 ml Q30MIN PRN Administration Hypoglycemia Protocol Docusate Sodium 100 mg 06/23/20 15:00 08/02/20 09:38 Docusate Sodium 100 Mg/10 Ml Oral Liqd FEEDTUBE 100 mg BID CONNOR Administration Fentanyl 50 mcg 06/18/20 01:02 07/27/20 16:59 Fentanyl 100 Mcg/2 Ml Inj IV 50 mcg Q10MIN PRN Administration ANALGESIA Heparin Sodium (Porcine) 5,000 unit 06/22/20 12:53 07/28/20 20:45 Heparin 10,000 Unit/1 Ml Vial IV 5,000 unit PAM PRN Administration hemodialysis Hydrophilic Ointment 1 applic 06/17/20 22:52 07/12/20 20:22 Lip Therapy Vaseline TP 1 applic Q2HR PRN Administration Dry Lips Propofol 1,000 mg in 100 mls @ 3.402 mls/hr 06/18/20 01:00 08/02/20 15:45 Diprivan 10 Mg/Ml IV 10 mcg/kg/min TITR CONNOR 6.804 mls/hr Titration Protocol 5 MCG/KG/MIN Fentanyl Citrate 2,000 mcg in 100 mls @ 8 mls/hr 06/18/20 02:00 08/02/20 15:51 Fentanyl Drip Premix IV 4 mcg/kg/hr TITR CONNOR 32 mls/hr Administration Protocol 1 MCG/KG/HR Norepinephrine 4 mg in 250 mls @ 7.5 mls/hr 07/08/20 02:06 08/02/20 15:30 Levophed Drip 4 Mg/Ns 250 Ml IV 6 mcg/min TITR CONNOR 22.5 mls/hr Titration Protocol 2 MCG/MIN Vasopressin 20 unit/ Sodium 101 mls @ 9.09 mls/hr 07/11/20 11:00 08/02/20 15:10 Chloride IV 0.03 units/min TITR CONNOR 9.09 mls/hr Titration Protocol 0.03 UNITS/MIN Amiodarone HCl 900 mg/ 500 mls @ 33.333 mls/hr 07/27/20 17:00 07/31/20 17:58 Dextrose IV 0.5 mg/min DIRECT CONNOR 16.667 mls/hr Administration Protocol 1 MG/MIN Sodium Chloride 100 mls @ 999 mls/hr 07/27/20 18:40 Nacl 0.9% IV PAM PRN Hypotension Cefepime HCl 2 gm in 100 mls @ 200 mls/hr 08/02/20 10:00 08/02/20 13:33 Cefepime/Ns 2 Gm/100 Ml IV 200 mls/hr Q24H CONNOR Administration Protocol Insulin Human Regular 0 units 06/18/20 12:00 08/02/20 13:34 Insulin Regular, Human 100 Units/1 Ml SUB-Q Not Given Q6HR [facility] Protocol Multi-Ingred Cream/Lotion/Oil/Oint 1 applic 06/17/20 22:52 07/12/20 20:22 Mineral Oil/Petrolatum, White Ophth Oint 3.5 Gm OU 1 applic Q4HR PRN Administration Dry Eye(s) Ondansetron HCl 4 mg 06/17/20 14:17 Ondansetron 4 Mg/2 Ml Inj IV Q8H PRN Nausea And Vomiting Pantoprazole Sodium 40 mg 07/16/20 22:00 08/02/20 09:38 Pantoprazole 40 Mg Inj IV 40 mg BID CONNOR Administration Polyethylene Glycol 17 gm 06/23/20 15:00 08/02/20 09:38 Polyethylene Glycol 3350 17 Gm Powder PO 17 gm QDAY CONNOR Administration Quetiapine Fumarate 200 mg 06/28/20 13:00 08/02/20 09:38 Quetiapine 200 Mg Tab PO 200 mg BID CONNOR Administration Scopolamine 1 each 07/29/20 14:00 08/01/20 09:25 Scopolamine Transdermal Patch 72 Hr TD 1 each Q3D CONNOR Administration Simple Syrup 15 ml 06/19/20 12:15 07/26/20 13:55 Simple Syrup 15 Ml FEEDTUBE 15 ml PRN PRN Administration Hypoglycemia Simple Syrup 30 ml 06/19/20 12:15 07/19/20 06:04 Simple Syrup 15 Ml FEEDTUBE 30 ml PRN PRN Administration Hypoglycemia Sodium Bicarbonate 325 mg 06/19/20 12:15 07/11/20 20:00 Sodium Bicarbonate 325 Mg Tab FEEDTUBE 325 mg PRN PRN Administration For Clogged Feeding Tube Sodium Chloride 10 ml 06/17/20 22:00 08/02/20 13:33 Sodium Chloride 0.9% 10 Ml Flush Syringe IV 10 ml BID CONNOR Administration Sodium Chloride 10 ml 06/17/20 14:17 07/30/20 09:46 Sodium Chloride 0.9% 10 Ml Flush Syringe IV 10 ml PRN PRN Administration LINE FLUSH Sodium Hypochlorite 1 applic 07/20/20 10:00 08/02/20 16:03 Sodium Hypochlorite, Dakin's 1/2 Strength (0.25%) 473 Ml Topical Soln TP Not Given BID CONNOR Zinc Sulfate 220 mg 06/17/20 22:00 08/02/20 09:38 Zinc Sulfate 220 Mg Cap PO 220 mg BID CONNOR Administration Nutrition/Malnutrition Assess - Dietary Evaluation Nutrition/Malnutrition Findings: Nutrition Notes Start: 06/18/20 10:28 Freq: Status: Active Protocol: Document 08/01/20 11:47 CW (Rec: 08/01/20 11:57 CW [id number]) Nutrition Notes Initial or Follow up Reassessment Current Diagnosis Acute Kidney Injury,Sepsis, Respiratory Failure Other Pertinent Diagnosis Pneu, on HD. Current Diet Nepro 1.8 at 55 ml/hr Labs/Tests BUN 56 Cr 2.6 Pertinent Medications Zinc Vit C Norepipherine Propofol 3.2 ml/hr (84 kcal) Height 6 ft Weight 157.2 kg Tyro Body Weight (kg) 80.90 BMI 47.0 Weight change and time frame weight stable at this time Weight Status Morbidly Obese Subjective/Other Information F/U TF running at new goal. TF of Nepro is running at 55 ml/ hr and being well tolerated. RN to follow up on administration of Gee. Pt remains on vent Percent of energy/protein needs met: 108%/66% Burn Absent Trauma Absent GI Symptoms Other Skin Integrity/Comment Unstageable Sacral Pressure Ulcer Current % PO Negligible Minimum of two criteria No physical signs of malnutrition #3 Nutrition Diagnosis Increased nutrient needs ( specify in comment below) Diagnosis Progress(for reassessment Continues documentation) #1 Nutrition Diagnosis Inadequate oral intake Diagnosis Progress(for reassessment Continues documentation) Is patient on ventilator? Yes Is Patient Ambulatory and/or Out of Bed No REE-([facility]-confined to bed) 2896.068 Kcal/Kg value to use for calculation 14 Approximate Energy Requirements Using 2201 kcal/Kg Calculation Used for Recommendations Kcal/kg Additional Notes Protein: Up to 162 g (up to 2. 5 g/kg IBW) Fluids: 1,000 ml + output Nutrition Intervention Change Diet Order: TF Nutrition Support: Nepro 1.8 at 55 ml/hr Flush 250 ml q4h Kcal 2,376 Protein (gm) 107 Fluid (mL) 959 Add Supplement/Snack (indicate name/kcal Gee BID /protein ) Provides kCal: 190 Provides Protein (gm) 5 Goal #1 TF tolerance Goal #2 Meet energy and protein needs as best as possible via TF Goal #3 Wound healing. Anticipated Discharge Needs: Nepro 1.8 at 55 ml/hr Flush 250 ml q4h with Richard BID until wound healed Follow-Up By: 08/04/20 Additional Comments F/U for TF tolerance and Gee tolerance
--- NOTE | 2020-08-02 20:54 | Ultrasound Report ---
ULTRASOUND RENAL INDICATION: gracia COMPARISON: CTA abdomen and pelvis 07/18/2020. FINDINGS: RIGHT KIDNEY: Size: 11.7 cm. Echogenicity: Mildly increased. Cortical thickness: Normal. Stones: None. Hydronephrosis: None. Cyst or mass: None. LEFT KIDNEY: Size: 11.6 cm. Echogenicity: Normal. Cortical thickness: Normal. Stones: None. Hydronephrosis: None. Cyst or mass: 14 mm probable cyst is seen in the upper to midportion. Urinary Bladder: No significant abnormality. Free Fluid: None. Additional Findings: Gallbladder is mildly distended and appears to have sludge but no definite calcu li. Gallbladder wall is just under 4 mm in thickness, borderline thickening, but no fluid is seen wit hin or surrounding the wall. No biliary dilatation is seen. Common bile duct measures 3 mm in diamete r.. IMPRESSION: 1. Probable small left renal cyst. Recommend follow-up 2. Mild gallbladder abnormalities as above. Clinical correlation is suggested. Signer Name: Pieter Rachel MD Signed: 08/02/2020 8:49 PM Workstation Name: [id number]
[2020-08-03] MEDS: fentaNYL DRIP Premix 2,000 MCG/100 ML BAG IV SCH ×7 (00:49→20:50)
[2020-08-03] MEDS: INSULIN REGULAR, HUMAN 100 UNITS/1 ML SUB-Q SCH ×2 (05:20→17:07)
[2020-08-03 05:30] LABS: Calcium 8.1 mg/dL (8.4-10.2)
[2020-08-03] MEDS: NORepinephrine/NS 4 MG-250 ML 4 MG/250 ML BAG IV SCH ×2 (06:34→15:37)
[2020-08-03] MEDS ORDERED: SILVER NITRATE APPLICATOR 1 EA TP ONE (09:00)
[2020-08-03 09:39] LABS: Hematocrit 26.3 % (35.5-45.6); Hemoglobin 8.6 gm/dl (11.8-15.2); Mean Corpuscular HGB Conc 33 % (32-34); Mean Corpuscular Volume 90 fl (84-94); Platelet Count 243 K/mm3 (140-440); Red Blood Count 2.91 M/mm3 (3.65-5.03)
--- NOTE | 2020-08-03 10:07 | Progress Note ---
Assessment and Plan - Patient Problems (1) Acute renal failure Current Visit: Yes Status: Acute Qualifiers: Acute renal failure type: with acute tubular necrosis Qualified Code(s): N17.0 - Acute kidney failure with tubular necrosis Plan to address problem: Likely prerenal in nature secondary to new onset of COVID-19 pneumonia with worsening sepsis and hypotension. Concern for acute tubular necrosis. Has now been on HD with no significant findings of renal recovery at present time. He is also requiring extra isolated UF treatments to further optimize his volume status. No signs of renal recovery at this point. Concern for possible worsening sepsis and recommendations per ID for removal of vas catheter as well as right IJ. His femoral Vas-Cath has been removed and his right IJ has been converted to dialysis catheter over guidewire. We will assess patency of new catheter line in anticipation hopefully for discharge to LTAC. (2) Pneumonia due to COVID-19 virus Current Visit: Yes Status: Acute Plan to address problem: Management per infectious disease recommendations. (3) Acute respiratory failure with hypoxia Current Visit: Yes Status: Acute Plan to address problem: Patient underwent tracheostomy. Further management per pulmonary. (4) Anemia Current Visit: Yes Status: Acute Qualifiers: Other causes of anemia: acute posthemorrhagic Plan to address problem: Transfuse to maintain Hgb >7.0. (5) Hyperkalemia Current Visit: Yes Status: Acute Plan to address problem: Manage with HD. Subjective Date of service: 08/03/20 Principal diagnosis: ARF; Septic Shock; COVID-19 PNA; Atrial fibrillation; Obesity Interval history: Patient tolerated isolated ultrafiltration for removal of 3 L of fluid. Tolerated well without any acute issues. Having dialysis today again at bedside. Patient had his femoral Vas-Cath removed and his R IJ converted to d ialysis catheter over guidewire. Pending possible discharge to LTAC. Objective - Vital Signs Vital signs: Vital Signs - 12hr 08/02/20 08/02/20 08/02/20 22:30 23:00 23:15 Temperature Pulse Rate 84 82 97 H Respiratory 31 H 30 H 32 H Rate Blood Pressure 110/50 109/48 109/48 O2 Sat by Pulse 95 95 90 Oximetry O2 Sat by Pulse Oximetry [ Anterior Bilateral Throughout] O2 Sat by Pulse Oximetry [ Assessment] 08/02/20 08/02/20 08/03/20 23:31 23:56 00:00 Temperature 99.0 F Pulse Rate 120 H 116 H Respiratory 25 H 20 Rate Blood Pressure 100/51 89/43 O2 Sat by Pulse 98 98 Oximetry O2 Sat by Pulse Oximetry [ Anterior Bilateral Throughout] O2 Sat by Pulse Oximetry [ Assessment] 08/03/20 08/03/20 08/03/20 00:30 00:40 01:00 Temperature Pulse Rate 89 108 H 112 H Respiratory 31 H 15 Rate Blood Pressure 97/49 89/43 104/48 O2 Sat by Pulse 99 97 98 Oximetry O2 Sat by Pulse Oximetry [ Anterior Bilateral Throughout] O2 Sat by Pulse Oximetry [ Assessment] 08/03/20 08/03/20 08/03/20 01:30 02:00 02:30 Temperature Pulse Rate 112 H 101 H 116 H Respiratory 32 H 29 H 30 H Rate Blood Pressure 101/53 109/54 112/51 O2 Sat by Pulse 99 99 99 Oximetry O2 Sat by Pulse Oximetry [ Anterior Bilateral Throughout] O2 Sat by Pulse Oximetry [ Assessment] 08/03/20 08/03/20 08/03/20 03:00 03:30 04:00 Temperature 99.3 F Pulse Rate 113 H 122 H 113 H Respiratory 30 H 30 H 30 H Rate Blood Pressure 99/53 104/55 105/54 O2 Sat by Pulse 99 99 99 Oximetry O2 Sat by Pulse Oximetry [ Anterior Bilateral Throughout] O2 Sat by Pulse Oximetry [ Assessment] 08/03/20 08/03/20 08/03/20 04:30 04:58 05:01 Temperature Pulse Rate 127 H 124 H 122 H Respiratory 30 H 27 H Rate Blood Pressure 93/49 104/56 89/62 O2 Sat by Pulse 95 95 95 Oximetry O2 Sat by Pulse Oximetry [ Anterior Bilateral Throughout] O2 Sat by Pulse 98 Oximetry [ Assessment] 08/03/20 08/03/20 08/03/20 05:30 06:00 06:30 Temperature Pulse Rate 108 H 122 H 118 H Respiratory 30 H 20 30 H Rate Blood Pressure 119/58 115/56 99/53 O2 Sat by Pulse 94 95 96 Oximetry O2 Sat by Pulse Oximetry [ Anterior Bilateral Throughout] O2 Sat by Pulse Oximetry [ Assessment] 08/03/20 08/03/20 08/03/20 07:00 07:30 07:41 Temperature Pulse Rate 119 H 113 H 113 H Respiratory 27 H 30 H Rate Blood Pressure 99/51 94/55 O2 Sat by Pulse 96 96 Oximetry O2 Sat by Pulse Oximetry [ Anterior Bilateral Throughout] O2 Sat by Pulse Oximetry [ Assessment] 08/03/20 08/03/20 08/03/20 08:00 08:01 08:10 Temperature 99.3 F Pulse Rate 113 H 112 H Respiratory 30 H 24 30 H Rate Blood Pressure 134/65 117/57 O2 Sat by Pulse 98 93 Oximetry O2 Sat by Pulse 94 Oximetry [ Anterior Bilateral Throughout] O2 Sat by Pulse Oximetry [ Assessment] 08/03/20 08/03/20 08/03/20 08:15 08:30 08:45 Temperature Pulse Rate 112 H 115 H 107 H Respiratory Rate Blood Pressure 117/57 101/52 97/45 O2 Sat by Pulse Oximetry O2 Sat by Pulse Oximetry [ Anterior Bilateral Throughout] O2 Sat by Pulse Oximetry [ Assessment] 08/03/20 08/03/20 08/03/20 09:00 09:15 09:16 Temperature Pulse Rate 115 H 110 H 111 H Respiratory Rate Blood Pressure 103/50 113/49 113/49 O2 Sat by Pulse 95 Oximetry O2 Sat by Pulse Oximetry [ Anterior Bilateral Throughout] O2 Sat by Pulse Oximetry [ Assessment] 08/03/20 08/03/20 09:30 09:45 Temperature Pulse Rate 112 H 121 H Respiratory Rate Blood Pressure 119/45 105/49 O2 Sat by Pulse Oximetry O2 Sat by Pulse Oximetry [ Anterior Bilateral Throughout] O2 Sat by Pulse Oximetry [ Assessment] - General Appearance General appearance: chronically ill, intubated, frail EENT: ATNC Neck: no JVD Respiratory: Present: Decreased Breath Sounds Cardiology: regular Gastrointestinal: normal Integumentary: no rash Musculoskeletal: other (3+ pitting edema and anasarca) - Lab 08/03/20 09:14 08/03/20 04:00 Most recent lab results ABG pH 7.321 (7.320-7.450) 08/03/20 04:10 ABG pCO2 44.4 mm Hg 07/28/20 14:31 ABG pO2 68.0 mm Hg (80.0-90.0) L 07/28/20 14:31 ABG HCO3 23.1 mmol/L (20.0-26.0) 07/28/20 14:31 ABG O2 Saturation 98.9 (0-100) 08/03/20 04:10 Calcium 8.1 mg/dL (8.4-10.2) L 08/03/20 04:00 Phosphorus 9.40 mg/dL (2.5-4.5) H 06/30/20 03:50 Magnesium 2.70 mg/dL (1.7-2.3) H 06/18/20 20:33 Urine Creatinine 192.4 mg/dL (0.1-20.0) H 06/18/20 15:00 Urine Sodium 28 mmol/L 06/18/20 15:00 - Allied health notes Allied health notes reviewed: nursing Medications & Allergies - Medications Allergies/Adverse Reactions: Allergies No Known Allergies Allergy (Unverified 06/17/20 14:24) Home Medications: Home Medications Medication Instructions Recorded Confirmed Last Taken Type ALBUTEROL NEB's [Proventil 0.083% 2.5 mg IH Q6HRT PRN nebu 08/02/20 Unknown Rx NEBS] Acetaminophen [Acetaminophen TAB] 650 mg PO Q4H PRN tablet 08/02/20 Unknown Rx Amiodarone [Cordarone 200 MG TAB] 200 mg PO BID tablet 08/02/20 Unknown Rx Ascorbic Acid [Vitamin C] 250 mg PO BID tablet 08/02/20 Unknown Rx Cholecalciferol Vit D3 [Vitamin D3 1,000 unit PO DAILY tablet 08/02/20 Unknown Rx 1,000 UNIT TAB] Dextrose 50% in Water [D50W (25GM) 50 ml IV Q30MIN PRN syringe 08/02/20 Unknown Rx Syringe] Docusate Sodium [Colace ORAL LIQ] 100 mg FEEDTUBE BID oral.liqd 08/02/20 Unknown Rx Epoetin Solitario-Epbx 10,000 Unit 10,000 unit IV PAM PRN vial 08/02/20 Unknown Rx [Retacrit] Heparin 5,000 unit IV PAM PRN vial 08/02/20 Unknown Rx Insulin Regular, Human [HumuLIN R] 0 units SUB-Q Q6HR units 08/02/20 Unknown Rx Lipase/Protease/Amylase [Pancreaze 1 each FEEDTUBE PRN PRN capsule 08/02/[address] 10,500 Unit] Min Oil/Petrolatum [Artificial 1 applic OU Q4HR PRN tube 08/02/20 Unknown Rx Tears Ophth Oint] Pantoprazole [Protonix INJ] 40 mg IV BID vial 08/02/20 Unknown Rx Petrolatum,White [Vaseline Lip 1 applic TP Q2HR PRN tube 08/02/20 Unknown Rx Therapy] QUEtiapine [SEROquel] 200 mg PO BID tablet 08/02/20 Unknown Rx Scopolamine [Transderm-Scop] 1 each TD Q3D patch 08/02/20 Unknown Rx Simple Syrup 15 ml FEEDTUBE PRN PRN oral.liqd 08/02/20 Unknown Rx Simple Syrup 30 ml FEEDTUBE PRN PRN oral.liqd 08/02/20 Unknown Rx Sodium Bicarbonate 325 mg FEEDTUBE PRN PRN tablet 08/02/20 Unknown Rx Sodium Chloride 0.9% Int [Sodium 10 ml IV BID syringe 08/02/20 Unknown Rx Chloride Flush Syringe 10 ml] Sodium Chloride 0.9% Int [Sodium 10 ml IV PRN PRN syringe 08/02/20 Unknown Rx Chloride Flush Syringe 10 ml] Sodium Hypochlorite [Dakin's Half 1 applic TP BID bottle 08/02/20 Unknown Rx Strength] Vasopressin [Vasostrict] 20 unit IV TITR vial 08/02/20 Unknown Rx Zinc Sulfate 220 mg PO BID capsule 08/02/20 Unknown Rx polyethylene glycoL 3350 [Miralax 17 gm PO QDAY powd.pack 08/02/20 Unknown Rx 3350] Active Medications: Generic Name Dose Route Start Last Admin Trade Name Freq PRN Reason Stop Dose Admin Acetaminophen 650 mg 06/17/20 14:17 08/02/20 06:00 Acetaminophen 325 Mg Tab PO 650 mg Q4H PRN Administration Pain MILD(1-3)/Fever >100.5/ROBERTS Albuterol 2.5 mg 07/19/20 12:15 Albuterol 2.5 Mg/3 Ml Nebu IH Q6HRT PRN Shortness Of Breath Alteplase, Recombinant 2 mg 07/27/20 18:40 Alteplase 2 Mg Inj IV PAM PRN LINE FLUSH Amiodarone HCl 200 mg 07/19/20 14:00 08/02/20 21:11 Amiodarone 200 Mg Tab PO 200 mg BID CONNOR Administration Lipase/Protease/Amylase 1 each 06/19/20 12:15 Lipase 10,500/Protease 25,000/Amylase 43,750 (Units) Dr Cap FEEDTUBE PRN PRN For Clogged Feeding Tube Ascorbic Acid 250 mg 06/17/20 22:00 08/02/20 21:11 Ascorbic Acid 250 Mg Tab PO 250 mg BID CONNOR Administration Cholecalciferol 1,000 unit 06/18/20 10:00 08/02/20 09:38 Cholecalciferol (Vit D3) 1000 Unit (25 Mcg) Tab PO 1,000 unit DAILY CONNOR Administration Dextrose 50 ml 07/26/20 22:00 07/27/20 06:42 Dextrose 50% In Water (25gm) 50 Ml Syringe IV 50 ml Q30MIN PRN Administration Hypoglycemia Protocol Docusate Sodium 100 mg 06/23/20 15:00 08/02/20 21:13 Docusate Sodium 100 Mg/10 Ml Oral Liqd FEEDTUBE Not Given BID CONNOR Fentanyl 50 mcg 06/18/20 01:02 07/27/20 16:59 Fentanyl 100 Mcg/2 Ml Inj IV 50 mcg Q10MIN PRN Administration ANALGESIA Heparin Sodium (Porcine) 5,000 unit 06/22/20 12:53 07/28/20 20:45 Heparin 10,000 Unit/1 Ml Vial IV 5,000 unit PAM PRN Administration hemodialysis Hydrophilic Ointment 1 applic 06/17/20 22:52 07/12/20 20:22 Lip Therapy Vaseline TP 1 applic Q2HR PRN Administration Dry Lips Propofol 1,000 mg in 100 mls @ 3.402 mls/hr 06/18/20 01:00 08/03/20 08:20 Diprivan 10 Mg/Ml IV 10 mcg/kg/min TITR CONNOR 6.804 mls/hr Titration Protocol 5 MCG/KG/MIN Fentanyl Citrate 2,000 mcg in 100 mls @ 8 mls/hr 06/18/20 02:00 08/03/20 07:17 Fentanyl Drip Premix IV 4 mcg/kg/hr TITR CONNOR 32 mls/hr Administration Protocol 1 MCG/KG/HR Norepinephrine 4 mg in 250 mls @ 7.5 mls/hr 07/08/20 02:06 08/03/20 08:19 Levophed Drip 4 Mg/Ns 250 Ml IV 6 mcg/min TITR CONNOR 22.5 mls/hr Titration Protocol 2 MCG/MIN Vasopressin 20 unit/ Sodium 101 mls @ 9.09 mls/hr 07/11/20 11:00 08/02/20 16:38 Chloride IV Infused TITR CONNOR Titration Protocol 0.03 UNITS/MIN Amiodarone HCl 900 mg/ 500 mls @ 33.333 mls/hr 07/27/20 17:00 07/31/20 17:58 Dextrose IV 0.5 mg/min DIRECT CONNOR 16.667 mls/hr Administration Protocol 1 MG/MIN Sodium Chloride 100 mls @ 999 mls/hr 07/27/20 18:40 Nacl 0.9% IV PAM PRN Hypotension Cefepime HCl 2 gm in 100 mls @ 200 mls/hr 08/02/20 10:00 08/02/20 13:33 Cefepime/Ns 2 Gm/100 Ml IV 200 mls/hr Q24H CONNOR Administration Protocol Insulin Human Regular 0 units 06/18/20 12:00 08/03/20 05:20 Insulin Regular, Human 100 Units/1 Ml SUB-Q Not Given Q6HR [facility] Protocol Multi-Ingred Cream/Lotion/Oil/Oint 1 applic 06/17/20 22:52 07/12/20 20:22 Mineral Oil/Petrolatum, White Ophth Oint 3.5 Gm OU 1 applic Q4HR PRN Administration Dry Eye(s) Ondansetron HCl 4 mg 06/17/20 14:17 Ondansetron 4 Mg/2 Ml Inj IV Q8H PRN Nausea And Vomiting Pantoprazole Sodium 40 mg 07/16/20 22:00 08/02/20 21:11 Pantoprazole 40 Mg Inj IV 40 mg BID CONNOR Administration Polyethylene Glycol 17 gm 06/23/20 15:00 08/02/20 09:38 Polyethylene Glycol 3350 17 Gm Powder PO 17 gm QDAY CONNOR Administration Quetiapine Fumarate 200 mg 06/28/20 13:00 08/02/20 21:11 Quetiapine 200 Mg Tab PO 200 mg BID CONNOR Administration Scopolamine 1 each 07/29/20 14:00 08/01/20 09:25 Scopolamine Transdermal Patch 72 Hr TD 1 each Q3D CONNOR Administration Simple Syrup 15 ml 06/19/20 12:15 07/26/20 13:55 Simple Syrup 15 Ml FEEDTUBE 15 ml PRN PRN Administration Hypoglycemia Simple Syrup 30 ml 06/19/20 12:15 07/19/20 06:04 Simple Syrup 15 Ml FEEDTUBE 30 ml PRN PRN Administration Hypoglycemia Sodium Bicarbonate 325 mg 06/19/20 12:15 07/11/20 20:00 Sodium Bicarbonate 325 Mg Tab FEEDTUBE 325 mg PRN PRN Administration For Clogged Feeding Tube Sodium Chloride 10 ml 06/17/20 22:00 08/02/20 21:13 Sodium Chloride 0.9% 10 Ml Flush Syringe IV 10 ml BID CONNOR Administration Sodium Chloride 10 ml 06/17/20 14:17 07/30/20 09:46 Sodium Chloride 0.9% 10 Ml Flush Syringe IV 10 ml PRN PRN Administration LINE FLUSH Sodium Hypochlorite 1 applic 07/20/20 10:00 08/02/20 21:12 Sodium Hypochlorite, Dakin's 1/2 Strength (0.25%) 473 Ml Topical Soln TP 1 applicatio BID CONNOR Administration Zinc Sulfate 220 mg 06/17/20 22:00 08/02/20 21:11 Zinc Sulfate 220 Mg Cap PO 220 mg BID CONNOR Administration
[2020-08-03] MEDS: AMIODARONE 200 MG TAB PO SCH ×2 (10:38→21:32)
[2020-08-03] MEDS: QUEtiapine 200 MG TAB PO SCH ×2 (10:38→21:32)
--- NOTE | 2020-08-03 11:12 | Progress Note ---
Assessment and Plan Pt s/p trach and PEG. tele reviewed - in AFib HR 110s. Requiring vasopressors, wean as tolerated. Cont present cardiac management. Pt for discharge to LTAC once medically stabilized. The patient has been seen in conjunction with Dr. Chavis who agrees with the assessment and plan of care. - Patient Problems (1) Acute respiratory failure with hypoxia Current Visit: Yes Status: Acute (2) Pneumonia due to COVID-19 virus Current Visit: Yes Status: Acute (3) Sepsis Current Visit: Yes Status: Acute Qualifiers: Severe sepsis acute organ dysfunction type: acute respiratory failure Severe sepsis shock status: with septic shock (4) Paroxysmal atrial fibrillation with rapid ventricular response Current Visit: Yes Status: Acute (5) Acute renal failure Current Visit: Yes Status: Acute (6) Elevated LFTs Current Visit: Yes Status: Acute (7) Anemia Current Visit: Yes Status: Acute Subjective Date of service: 08/03/20 Principal diagnosis: ARF; Septic Shock; COVID-19 PNA; Atrial fibrillation; Obesity Interval history: pt s/p trach and PEG. tele reviewed - in AFib HR 110s. Objective Last Vital Signs Temp 99.3 F 08/03/20 08:10 Pulse 113 H 08/03/20 11:00 Resp 24 08/03/20 10:00 BP 101/52 08/03/20 11:00 Pulse Ox 93 08/03/20 10:00 - Physical Examination General: Other (trached, sedated) Neck: Positive: neck supple Cardiac: Positive: irregularly irregular, S1/S2 Lungs: Positive: Decreased Breath Sounds Neuro: Positive: Other (trached, sedated) Abdomen: Positive: Unremarkable Skin: Negative: Rash, Wound Extremities: Present: upper extr. pulses, lower extr. pulses, +1 Edema - Labs and Meds CBC 08/03/20 Range/Units 09:14 WBC 17.8 H (4.5-11.0) K/mm3 RBC 2.91 L (3.65-5.03) M/mm3 Hgb 8.6 L (11.8-15.2) gm/dl Hct 26.3 L (35.5-45.6) % Plt Count 243 (140-440) K/mm3 Comprehensive Metabolic Panel 08/03/20 Range/Units 04:00 Sodium 134 L (137-145) mmol/L Potassium 3.7 (3.6-5.0) mmol/L Chloride 97.3 L (98-107) mmol/L Carbon Dioxide 23 (22-30) mmol/L BUN 70 H (9-20) mg/dL Creatinine 2.6 H (0.8-1.3) mg/dL Glucose 102 H (75-100) mg/dL Calcium 8.1 L (8.4-10.2) mg/dL - Imaging and Cardiology EKG: report reviewed, image reviewed Echo: report reviewed (TDS, EF 55-60%. ) - EKG Sinus rhythms and dysrhythmias: sinus tachycardia - Allied health notes Allied health notes reviewed: nursing
--- NOTE | 2020-08-03 11:17 | Progress Note ---
Assessment and Plan Cultures: SARS CoV2 PCR: Positive 06/17/2020 blood culture: No growth 06/17/2020 sputum culture: No growth 07/15/2020 blood culture: No growth 07/15/2020 fungal blood culture: Enterococcus faecalis 07/15/2020 tracheal aspirate culture: Usual respiratory otf 07/18/2020 blood culture: no growth 07/31/2020 blood culture no growth 08/01/2020 tracheal aspirate no growth today MRSA PCR negative A/P: 59-year-old male with obesity, obesity hypoventilation syndrome: #Severe sepsis with septic shock, ?also component of hemorrhagic shock. Remains on pressors, leukocytosis, no fever for 36 hours #Enterococcus bacteremia: 07/15/2020 fungal blood culture: grew Enterococcus. ?gut translocation. Interestingly other blood cultures from that day were negative. CT abdomen showed some colitis. Since repeat blood cultures negative, will finish 14 days of abx. #Anemia, GI bleed: GI on board. #Critical COVID-19 pneumonia: s/p abx, steroids and remdesivir. #Acute hypoxic respiratory failure: on the vent. Also with pneumomediastinum, subcutaneous emphysema. #Leukemoid reaction: likely multifactorial. #GIRISH: remains on HD per nephrology. Renally dose abx. #Extensive sacral decubitus: s/p debridement by Dr. Kirk on 07/20/2020. Recs: -Continue cefepime 2 g IV once a day D2 of 7, empirically given septic shock with persistent fever, unknown source -Left femoral Vas-Cath cannot be removed per IR. Placed on 06/22/2020 -F/u Repeat blood cultures, sputum cultures -UA pending, not collected -Completed ampicillin 14 days on 08/01/2020 -monitor fever and WBC Guarded prognosis Bere Hampton MD [facility] ([facility]) Office [phone] Subjective Date of service: 08/03/20 Principal diagnosis: ARF; Septic Shock; COVID-19 PNA; Atrial fibrillation; Obesity Interval history: Remains on pressors levophed at 6, no fever x 24h, remains on the ventilator via trach FiO2 40% Objective - Exam Narrative Exam: General appearance: Sedated on the ventilator Eyes: anicteric sclerae, moist conjunctivae; no lid-lag; PERRLA HENT: Normocephalic, Atraumatic; normal external ears, nares open, oropharynx limited Neck: Trach in place Lungs: Bilateral rhonchi CV: RRR Abdomen: Soft nontender abdominal wall edema Extremities: Bilateral leg edema Skin: Sacral decubitus extensive not examined Psych: Sedated Neuro: Sedated - Constitutional Vitals: Vital Signs Temp Pulse Resp BP Pulse Ox 99.3 F 125 H 24 115/53 93 08/03/20 08:10 08/03/20 11:15 08/03/20 10:00 08/03/20 11:15 08/03/20 10:00 Temperature -Last 24 Hours Temperature 99.3 F Temperature 99.3 F Temperature 99.3 F Temperature 99.0 F Temperature 98.9 F Temperature 98.1 F Temperature 98.9 F Temperature 98.9 F - Labs CBC & Chem 7: 08/03/20 09:14 08/03/20 04:00 Labs: Abnormal lab results 08/02/20 08/03/20 08/03/20 Range/Units 11:24 04:00 04:10 WBC (4.5-11.0) K/mm3 RBC (3.65-5.03) M/mm3 Hgb (11.8-15.2) gm/dl Hct (35.5-45.6) % RDW (13.2-15.2) % POC ABG pO2 133.7 H (83-108) mmHg ABG Hemoglobin 8.1 L (12.0-17.5) ABG Sodium 130.0 L (136.0-145.0) mmol/L ABG Glucose 97 H (65-95) mg/dL Sodium 134 L (137-145) mmol/L Chloride 97.3 L (98-107) mmol/L BUN 70 H (9-20) mg/dL Creatinine 2.6 H (0.8-1.3) mg/dL Glucose 102 H (75-100) mg/dL POC Glucose 129 H (70-105) mg/dL Calcium 8.1 L (8.4-10.2) mg/dL Arterial Blood Glucose 97 H (65-95) mg/dL 08/03/20 Range/Units 09:14 WBC 17.8 H (4.5-11.0) K/mm3 RBC 2.91 L (3.65-5.03) M/mm3 Hgb 8.6 L (11.8-15.2) gm/dl Hct 26.3 L (35.5-45.6) % RDW 16.0 H (13.2-15.2) % POC ABG pO2 (83-108) mmHg ABG Hemoglobin (12.0-17.5) ABG Sodium (136.0-145.0) mmol/L ABG Glucose (65-95) mg/dL Sodium (137-145) mmol/L Chloride (98-107) mmol/L BUN (9-20) mg/dL Creatinine (0.8-1.3) mg/dL Glucose (75-100) mg/dL POC Glucose (70-105) mg/dL Calcium (8.4-10.2) mg/dL Arterial Blood Glucose (65-95) mg/dL
[2020-08-03] MEDS: EPOETIN ALFA-EPBX 10,000 UNIT/1 ML VIAL IV PRN (11:28)
[2020-08-03] MEDS: POLYETHYLENE GLYCOL 3350 17 GM POWDER PO SCH (12:32)
[2020-08-03] MEDS: ZINC SULFATE 220 MG CAP PO SCH ×2 (12:32→21:33)
[2020-08-03] MEDS: PANTOPRAZOLE 40 MG INJ IV SCH ×2 (12:32→21:32)
[2020-08-03] MEDS: ASCORBIC ACID 250 MG TAB PO SCH ×2 (12:33→21:33)
[2020-08-03] MEDS: CEFEPIME/NS 2 GM/100 ML 2 GM/100 ML BAG IV SCH (12:33)
[2020-08-03] MEDS: DOCUSATE SODIUM 100 MG/10 ML ORAL LIQD FEEDTUBE SCH ×2 (12:33→21:32)
[2020-08-03] MEDS: CHOLECALCIFEROL (VIT D3) 1000 UNIT (25 mcg) TAB PO SCH (12:33)
[2020-08-03] MEDS: VASOPRESSIN 20 UNIT in SODIUM CHLORIDE 0.9% 100 ML IV SCH (12:41)
--- NOTE | 2020-08-03 12:46 | Progress Note ---
Assessment and Plan Assessment and plan: -S/p dexamethasone and remdesivir therapy, contact/droplet isolation, vitamin C/vitamin D/zinc, anticoagulation per protocol, trend inflammatory markers -Wean mechanical ventilation as tolerated, VAP bundle -HD per nephrology -Transfuse for hemaglobin less than 7, s/p 10 units PRBC during stay -Nephrology, ID, heme-onc, GI , CCM, cardiology consulted,appreciate recommendations -BCR-ABL mutation testing pending -Per infectious disease: s/p ampicillin. on cefepime -Monitor leukocytosis and fevers -s/p RJ to trialysis line exchange over wire 08/02 -Hold systemic anticoagulation in setting of severe anemia -Amiodarone for rate control -s/p debridement by Dr. Kirk, WOCN consulted, WC per nursing, 07/27 debridement repeated -07/22 COVID-19 PCR negative, discontinued contact/droplet isolation DVT prophylaxis: GI prophylaxis, heparin subcu, SCDs to bilateral LE while in bed Disposition: ICU, ?placement ?trach/peg ?Ltach (Possible transfer to LTACH tomorrow) The high probability of a clinically significant, sudden or life threatening deterioration of the [multi] system(s) required my full and direct attention, intervention and personal management. The aggregate critical care time was [35] minutes. This time is in addition to time spent performing reported procedures but includes the following: [x] Data Review and interpretation [x] Patient assessment and monitoring of vital signs [x] Documentation [x] Medication orders and management History Interval history: 59-year-old white male who was admitted for pneumonia secondary to Covid with associated respiratory failure and sepsis. Severe septic shock COVID-19 pneumonia Sacral wound, stage 4 Leukemoid reaction Acute metabolic encephalopathy Acute hypoxic respiratory failure Enterococcus bacteremia Pneumomediastinum Acute kidney injury likely secondary to acute tubular necrosis which progressed to hemodialysis SVT/proximal atrial fibrillation Elevated LFTs Anemia likely due to severe sepsis had declining renal function Morbid obesity Leukocytosis Hypoalbuminemia Sacral decubitus: s/p debridements 06/18: Patient got intubated overnight. Patient was placed on BiPAP to maintain oxygenation with 100% FiO2 but apparently he found to take off his argueta which made his oxygen saturation go down at 60s/50s and patient was found altered mental status. Code met was called immediately. Patient was transferred to ICU and intubated, patient currently on 2 pressors, intubated with 100% FiO2, renal function noted to be decline, nephrology consulted. Discussed with [place] physician Dr. Thompson and requested call back on Saturday. Poor prognosis, continue to monitor with aggressive supportive care. Also called family/ to update clinical status. 06/19: Repeat COVID test was positive. cont cefepime, remdesivir per ID recommendation. follow inflammatory markers, cbc, bmp. placed on heparin drip for atrial fib 06/20: Remains on mechanical ventilation, on 2 pressors, on heparin drip. discussed with and daughter by phone. Renal function declining. cont supportive care for now. 06/21: Renal function cont to decline, urine outpt sig decreased. started on lasix 80mg BID, plan to follow urine output, if no improvement patient need to start on HD. called and daughter today. updated all clinical details 06/22: Renal function continues to decline with uremia and hyperkalemia. Will need to proceed with hemodialysis. Nephrology discussed with the family and they agrees for the hemodialysis. Patient remains on pressor support and mechanical ventilation. Vas-Cath placed today by vascular started on hemodialysis today. 06/23: 2nd round of HD today, remains on 2 pressors. per RN not tolerating TF, has no record of BM since 06/18. start on stool softner. follow cbc/bmp. updated family ( and daughter) by phone -all question answered to best of my knowledge and to their satisfaction. Patient remains critically ill with a very poor prognosis. 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 06/25/2020 continue supportive care very poor prognosis 06/26/2020 continue supportive care very poor prognosis family updated 06/27/2020 continue supportive care and weaning if possible 06/28/2020 continue supportive care, talk with at length 06/29: Resumed care. K level persistently high. give one dose of bicarbonate, plan for HD today, recheck k after HD. updated family by phone 06/30: updated family by phone. Patient remains on amiodarone drip and vasopressin. Getting HD at the bedside. Tolerating tube feeding at low rate. 07/01: Hb dropped to 6.4 today, transfuse one unit PRBC. patient is off pressor today, remains on amioderone. cont to monitor 07/02: Called patient and updated clinical details. Patient remains criti edilson ill, still intubated. Patient's oxygen requirement and PEEP pressure has went down. Continue weaning protocol per critical care recommendation. Patient remains off pressor. Continue to wean off from amiodarone and plan to rate control with p.o. medications. Tolerating tube feeding. H&H stable today. Order for stool for occult blood. Monitor H&H and BMP. Continue to follow clinically 07/03: discussed with [place] physician today. Patient back on 100percent Fio2 since last night. planned for emergent Hd today. spiked fever, start IV Cefepime + Vancomycin renally dosed. Restarted Levophed today, remains on amiodarone drip. Patient family was updated by critical care attending today. 07/04: Patient has hemodialysis yesterday and also plan for today for volume overload and pulmonary edema. Patient currently on 80% FiO2. Remains on Levophed and amiodarone. Hemoglobin dropped to 6.7 without any evidence of active bleeding. LFTs remain stable. Repeat Covid test on 06/30 and 07/03 remains positive. Will transfuse another unit of packed RBC today. Called family for update -explained family that patient is critically ill with very poor prognosis. 07/05: Patient on 70% FiO2 with PEEP of 14. h/h stable after transfusion. hyperkalemia improved, cont sodiumbicarbonate pill with TF. follow BMP. off levophed today, remains on amioderone. poor prognosis. 07/06: Patient remains on amiodarone drip, maintaining BP without any pressor. FiO2 requirement trended down to 60% with PEEP of 14. Continue to follow clinically. Plan to wean off amiodarone drip as tolerated. Wean off from sedation as tolerated. Updated family. Patient remains critically ill with poor prognosis. 07/07: Called family for update. Off amiodarone drip today, patient also off pressor. FiO2 requirement trended up again to 80-100%. Continue to provide supportive care, monitor clinically. Having difficulty to wean off from the vent support. Patient is persistently positive for COVID-19 and COVID-19 antibody is nonreactive. Patient remains critically ill with very poor prognosis. 07/08: Continue supportive care. 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 Prognosis remains guarded to poor. Management per team. Critical care time 35-minute 07/09/20 patient is tachycardic. Heart rate 121. Hemoglobin 7.3. Patient is having hemodialysis. Continue supportive care. Patient having difficulty to wean off from the vent support. Prognosis is poor. Nephrology and cardiology follow-up. Recheck CBC BMP in the morning. Continue current management. 07/10/20 patient seen and examined, remains on full ventilator patient is doing better. Patient is off pressor. heart rate 123. Hemoglobin 6.8 and hematocrit 20.7. WBC is 18.1. Continue supportive care. Patient having difficulty to wean off from the vent support. We will started on Zosyn 4.5 g IV every 8 hours. Will transfuse 1 unit of packed red blood cell. Prognosis is poor. Nephrology and cardiology follow up. Recheck CBC BMP in the morning 07/11: remains off vasopressor, h/h appropriately responded to 1 unit PRBC. HD today. Remain on MV with fiO2 at 70%. peep 10. No acute events reported overnight. 3: Patient remains in atrial fibrillation on the quality assurance monitor, vasopressor support with Levophed and vasopressin, sedated with fentanyl and propofol. Vent settings: CMV 500/25/14/0.60. Patient remains hypercarbic on ABG 07/13: Patient remains on vasopressin, fentanyl and propofol with rectal tube in place. This morning some examination patient was on assist control 25/500/14 /0.60. Patient received hemodialysis today. No acute events reported overnight. 07/14: Remains on vasopressin, fentanyl and propofol with tube in place. Rectal tube in place with noted blood clots, GI consulted, on 07/13 H/H dropped from 8.7/27 to 7.4/22 and anticoagulation discontinued. This morning I spoke to his who still wishes for the patient to remain a full code despite update with continued use of vasopressor (vasopressin), current ventilatory support (CMV 500/25/14/0.60) and recent development of rectal bleeding. Patient's family requests an update from [facility] and GI. Cardio changed amio from PO to IV given elevated HR 07/15: Today the patient received a total of 5 units of PRBC and is still having bleeding through his rectal tube. CTA abdomen/pelvis is pending, patient remains on Levophed, fentanyl, propofol, vasopressin and received hemodialysis today. He was also hyperkalemic today to 6 and he received insulin and D50. Extensive conversation with family conducted by CCM and hospitalist and his and 2 daughters did visit him today at the bedside. 07/16: Continues with full ventilatory support. FMS still inplace with some loose bloody stool. Still on multiple pressors, Bilateral swollen and generalized anascara. Monitor H/H and transfuse as needed. Monitor K level. Discussed with family at bedside yesterday. 07/17: Continue supportive care, transfusion blood possible in am with HD, continue abx, very poor prognosis, blood pressure still labile. Discussed with nurse at bedside 07/18: CTA abdomen/pelvis completed, antibiotics changed to Zosyn per infectious disease, remains on mechanical ventilation 450/25/12/0.55 continue amiodarone drip for 24 more hours, blood culture grew Enterococcus. Remains sedated on propofol and fentanyl. Not on vasopressor support today 07/19: No acute events reported overnight, remains sedated with fentanyl and propofol and off vasopressor therapy today. 07/20: s/p debridement with surgery today, remains on fentanyl, propofol, L evophed and current vent settings 450/25/10/0.45. Patient will be transferred to a bariatric bed once available. 07/21: Continue current management, wean ventilator as tolerated, IV antibiotics deescalated to ampicillin. Per infectious disease no need to exchange/remove lines unless repeat blood cultures turn positive. The time my examination patient was sedated on fentanyl and propofol and remains off vasopressor support. 07/22: At the time my examination patient is sedated on fentanyl and propofol and remains off vasopressor support, repeat COVID-19 PCR negative. Patient remains on ampicillin. H/H remained stable and GI has signed off. Mechanical ventilation weaning as tolerated. 07/23. He remains sedated on fentanyl and propofol. On mechanical ventilation. On levophed. repeat COVID-19 PCR negative. Patient remains on ampicillin. H/H remained stable and GI has signed off. 07/24. He remains sedated and on mechanical ventilation. On levophed. repeat COVID-19 PCR negative. On ampicillin. ID recs appreciated. Labs reviewed 07/25: Patient remains sedated on fentanyl and Diprivan and remains on mechanical ventilation. Repeat CXR and still has leukocytosis. Patient is n.p.o. for trach and PEG with surgery. 07/26: Remains sedated on fentanyl and propofol. Remains on vasopressor support with Levophed. Current vent settings CMV 450/20/8/0.40. Patient is scheduled for PEG/trach with surgery. No acute events reported overnight. 07/27: Debridement with surgery to sacrum:, Activity restarted, remains sedated on propofol/fentanyl and Precedex support with Levophed. Current vent settings CMV 450/20/8/135. S/p trach/PEG with surgery 07/26. Patient remains afebrile however leukocytosis slightly worse today and he is still on his ampicillin. Patient was hypoglycemic overnight. 07/28: Patient remains sedated on propofol and fentanyl. Continue amiodarone drip for rate control. Patient be started on pressors of Levophed last evening. Patient currently with PSV/CPAP FiO2 35% PEEP of 8 and pressure support of 20. Wean mechanical ventilation as tolerated, VAP bundle. Continue hemodialysis per nephrology recommendations. Continue antibiotics per ID recommendations. Hold systemic anticoagulation in the setting of severe anemia. Patient with status post debridement on 07/27. 07/29: Continue sedation per pulmonary. Amiodarone drip for rate control. Continue vasopressors to maintain MAP > 65. Mechanical ventilation currently AC mode rate of 20 tidal volume 450, FiO2 35% and PEEP of 8. Wean mechanical ventilation as tolerated, VAP bundle. Continue hemodialysis per nephrology recommendations. Continue antibiotics per ID recommendations until 08/01/2020. Repeat blood cultures have been negative. Hold systemic anticoagulation in the setting of severe anemia. 07/30: Patient currently with AC mode rate of 14, tidal volume 450, FiO2 40% and PEEP of 8. Wean mechanical ventilation as tolerated, VAP bundle. Continue hemodialysis per nephrology recommendations. Continue antibiotics per ID recommendations. Hold systemic anticoagulation in the setting of severe anemia. 07/31: Patient currently with AC mode ventilation rate 30, tidal volume 450 FiO2 100%, pressure support 16 and PEEP of 8. Wean mechanical ventilation as tolerated, VAP bundle. Continue hemodialysis per nephrology recommendations. Continue antibiotics per ID recommendations. Patient currently on ampicillin. Hold systemic anticoagulation in the setting of severe anemia. Continue restraints for safety. Continue pressors to maintain MAP > 65. Awaiting family decision to discharge to LTAC. 08/01: If patient develops worsening sepsis ID would like to initiate vancomycin and cefepime, and [facility] would like to add vasopressin. The time my examination patient is on assist control 450/30/8/.60 with an ABG of 7.3/42/111/21 with a base excess of -4. Patient remains sedated on propofol and fentanyl with vasopressor support with Levophed. No acute events reported overnight. Per vascular surgery if patient's blood cultures are positive will consider a Vas-Ca th exchange on a clean wire with ChloraPrep during the exchange and attempt to decrease bioburden. No acute events reported overnight. Patient's H/H today was 6.8/20.5 and he will receive 1 unit PRBC and we will recheck CBC in the a.m. and transfuse as needed. 08/02: Right IJ dialysis catheter changed over wire, per CCM ok to transfer to LTAC after next HD session and ID started cefepime. The time my examination patient remains on vasopressin and Levophed. Remains on assist control 450/30/H/0.60 with a T-max of 100.7 overnight. His sputum is growing GNR. 08/03: Tracheal aspirate from 08/03 shows heavy growth of gram-negative rods and patient is on cefepime. His IJ IVC was changed over wire to IJ dialysis yesterday. Patient remains on assist control 450/30/8/0.40 and sedated on propofol and fentanyl and the vasopressor support with Levophed. Patient received hemodialysis today. Patient atrial remains intrafibrillation however his heart rate 110s and cardiology is aware. Hospitalist Physical - Physical exam Narrative exam: General appearance: Present: mild distress, well-nourished - EENT ENT: ulcerations - Respiratory Respiratory effort: normal Respiratory: bilateral: diminished - Cardiovascular Rhythm: regular Heart Sounds: Present: S1 & S2. Absent: systolic murmur, diastolic murmur - Extremities Extremities: no ischemia, pulses intact, pulses symmetrical, normal color Peripheral Pulses: within normal limits - Abdominal General gastrointestinal: soft, non-tender, non-distended, normal bowel sounds - Integumentary Integumentary: Present: dry, edema - Psychiatric Psychiatric: other (sedated) - Neurologic Neurologic: other (sedated) - Constitutional Vitals: Temp Pulse Resp BP Pulse Ox 97.8 F 129 H 31 H 106/42 96 08/03/20 12:07 08/03/20 12:07 08/03/20 12:07 08/03/20 12:07 08/03/20 12:07 General appearance: Present: no acute distress, well-nourished, other (Patient remains on mechanical ventilation) HEART Score - HEART Score Troponin: Troponin T < 0.010 ng/mL (0.00-0.029) 06/17/20 12:33 Results - Labs CBC & Chem 7: 08/03/20 09:14 08/03/20 04:00 Labs: Laboratory Last Values WBC 17.8 K/mm3 (4.5-11.0) H 08/03/20 09:14 RBC 2.91 M/mm3 (3.65-5.03) L 08/03/20 09:14 Hgb 8.6 gm/dl (11.8-15.2) L 08/03/20 09:14 Hct 26.3 % (35.5-45.6) L 08/03/20 09:14 MCV 90 fl (84-94) 08/03/20 09:14 MCH 30 pg (28-32) 08/03/20 09:14 MCHC 33 % (32-34) 08/03/20 09:14 RDW 16.0 % (13.2-15.2) H 08/03/20 09:14 Plt Count 243 K/mm3 (140-440) 08/03/20 09:14 Lymph % (Auto) 3.2 % (13.4-35.0) L 07/29/20 04:39 [place] % (Auto) 7.0 % (0.0-7.3) 07/29/20 04:39 Eos % (Auto) 2.1 % (0.0-4.3) 07/29/20 04:39 Baso % (Auto) 1.2 % (0.0-1.8) 07/29/20 04:39 Lymph # (Auto) 1.2 K/mm3 (1.2-5.4) 07/29/20 04:39 [place] # (Auto) 2.7 K/mm3 (0.0-0.8) H 07/29/20 04:39 Eos # (Auto) 0.8 K/mm3 (0.0-0.4) H 07/29/20 04:39 Baso # (Auto) 0.4 K/mm3 (0.0-0.1) H 07/29/20 04:39 Add Manual Diff Complete 07/31/20 09:00 Total Counted 100 07/31/20 09:00 Seg Neutrophils % 86.5 % (40.0-70.0) H 07/29/20 04:39 Seg Neuts % (Manual) 85.0 % (40.0-70.0) H 07/31/20 09:00 Band Neutrophils % 8.0 % 07/31/20 09:00 Lymphocytes % (Manual) 1.0 % (13.4-35.0) L 07/31/20 09:00 Reactive Lymphs % (Man) 1.0 % 06/23/20 04:00 Monocytes % (Manual) 6.0 % (0.0-7.3) 07/31/20 09:00 Eosinophils % (Manual) 4.0 % (0.0-4.3) 07/27/20 04:00 Basophils % (Manual) 1.0 % (0.0-1.8) 07/27/20 04:00 Metamyelocytes % 1.0 % 07/26/20 Unknown Myelocytes % 1.0 % 07/25/20 05:39 Promyelocytes % 0 % 07/17/20 15:25 Nucleated RBC % 1.0 % (0.0-0.9) H 07/31/20 09:00 Seg Neutrophils # 33.4 K/mm3 (1.8-7.7) H 07/29/20 04:39 Seg Neutrophils # Man 26.2 K/mm3 (1.8-7.7) H 07/31/20 09:00 Band Neutrophils # 2.5 K/mm3 07/31/20 09:00 Lymphocytes # (Manual) 0.3 K/mm3 (1.2-5.4) L 07/31/20 09:00 Abs React Lymphs (Man) 0.0 K/mm3 07/31/20 09:00 Monocytes # (Manual) 1.8 K/mm3 (0.0-0.8) H 07/31/20 09:00 Eosinophils # (Manual) 0.0 K/mm3 (0.0-0.4) 07/31/20 09:00 Basophils # (Manual) 0.0 K/mm3 (0.0-0.1) 07/31/20 09:00 Metamyelocytes # 0.0 K/mm3 07/31/20 09:00 Myelocytes # 0.0 K/mm3 07/31/20 09:00 Promyelocytes # 0.0 K/mm3 07/31/20 09:00 Blast Cells # 0.0 K/mm3 07/31/20 09:00 Pathologist Review 07/17/20 15:25 WBC Morphology Not Reportable 07/31/20 09:00 Hypersegmented Neuts Not Reportable 07/31/20 09:00 Hyposegmented Neuts Not Reportable 07/31/20 09:00 Hypogranular Neuts Not Reportable 07/31/20 09:00 Smudge Cells Not Reportable 07/31/20 09:00 Toxic Granulation Not Reportable 07/31/20 09:00 Toxic Vacuolation Not Reportable 07/31/20 09:00 Dohle Bodies Not Reportable 07/31/20 09:00 Pelger-Huet Anomaly Not Reportable 07/31/20 09:00 Carlito Rods Not Reportable 07/31/20 09:00 Platelet Estimate Consistent w auto 07/31/20 09:00 Clumped Platelets Not Reportable 07/31/20 09:00 Plt Clumps, EDTA Not Reportable 07/31/20 09:00 Large Platelets Not Reportable 07/31/20 09:00 Giant Platelets Not Reportable 07/31/20 09:00 Platelet Satelliting Not Reportable 07/31/20 09:00 Plt Morphology Comment Not Reportable 07/31/20 09:00 RBC Morphology Not Reportable 07/31/20 09:00 Dimorphic RBCs Not Reportable 07/31/20 09:00 Polychromasia Not Reportable 07/31/20 09:00 Hypochromasia Not Reportable 07/31/20 09:00 Poikilocytosis Not Reportable 07/31/20 09:00 Anisocytosis 1+ 07/31/20 09:00 Microcytosis Not Reportable 07/31/20 09:00 Macrocytosis Not Reportable 07/31/20 09:00 Spherocytes Not Reportable 07/31/20 09:00 Pappenheimer Bodies Not Reportable 07/31/20 09:00 Sickle Cells Not Reportable 07/31/20 09:00 Target Cells Not Reportable 07/31/20 09:00 Tear Drop Cells Not Reportable 07/31/20 09:00 Ovalocytes Not Reportable 07/31/20 09:00 Stomatocytes Few 07/27/20 04:00 Helmet Cells Not Reportable 07/31/20 09:00 [place] Bodies Not Reportable 07/31/20 09:00 [place] Rings Not Reportable 07/31/20 09:00 [place] Cells Not Reportable 07/31/20 09:00 Bite Cells Not Reportable 07/31/20 09:00 Crenated Cell Not Reportable 07/31/20 09:00 Elliptocytes Not Reportable 07/31/20 09:00 Acanthocytes (Spur) Not Reportable 07/31/20 09:00 Rouleaux Not Reportable 07/31/20 09:00 Hemoglobin C Crystals Not Reportable 07/31/20 09:00 Schistocytes Not Reportable 07/31/20 09:00 Malaria parasites Not Reportable 07/31/20 09:00 [place] Bodies Not Reportable 07/31/20 09:00 Hem Pathologist Commnt No 07/31/20 09:00 PT 15.3 Sec. (12.2-14.9) H 07/24/20 20:40 INR 1.21 (0.87-1.13) H 07/24/20 20:40 APTT 36.1 Sec. (24.2-36.6) 07/24/20 20:40 Fibrinogen 419 mg/dl (211-480) 07/15/20 08:21 D-Dimer 6608.00 ng/mlDDU (0-234) H 07/03/20 14:50 Heparin Anti-Xa Level < 0.10 U.I./ml (0.3-0.7) L 06/26/20 01:30 ABG pH 7.321 (7.320-7.450) 08/03/20 04:10 POC ABG pCO2 40.7 mmHg (32.0-48.0) 08/03/20 04:10 ABG pCO2 44.4 mm Hg 07/28/20 14:31 POC ABG pO2 133.7 mmHg (83-108) H 08/03/20 04:10 ABG pO2 68.0 mm Hg (80.0-90.0) L 07/28/20 14:31 POC ABG HCO3 20.5 08/03/20 04:10 ABG HCO3 23.1 mmol/L (20.0-26.0) 07/28/20 14:31 ABG O2 Saturation 98.9 (0-100) 08/03/20 04:10 ABG O2 Content 11.4 (0.0-44) 07/28/20 14:31 POC ABG Base Excess -5.1 08/03/20 04:10 ABG Base Excess -2.7 mmol/L (-2.0-3.0) L 07/28/20 14:31 ABG Hemoglobin 8.1 (12.0-17.5) L 08/03/20 04:10 ABG Oxyhemoglobin 97.4 (94-98) 08/03/20 04:10 ABG Carboxyhemoglobin 2.2 % (0.0-5.0) 07/28/20 14:31 ABG Methemoglobin 0.3 (0.0-1.5) 08/03/20 04:10 ABG Sodium 130.0 mmol/L (136.0-145.0) L 08/03/20 04:10 ABG Potassium 3.7 mmol/L (3.40-4.50) 08/03/20 04:10 ABG Chloride 100.0 mmol/L (98-107) 08/03/20 04:10 ABG Glucose 97 mg/dL (65-95) H 08/03/20 04:10 Oxyhemoglobin 89.9 % (95.0-99.0) L 07/28/20 14:31 Carboxyhemoglobin 1.2 (0.5-1.5) 08/03/20 04:10 FiO2 35 % 07/28/20 14:31 FiO2 % 60 08/03/20 04:10 Sodium 134 mmol/L (137-145) L 08/03/20 04:00 Potassium 3.7 mmol/L (3.6-5.0) 08/03/20 04:00 Chloride 97.3 mmol/L (98-107) L 08/03/20 04:00 Carbon Dioxide 23 mmol/L (22-30) 08/03/20 04:00 Anion Gap 17 mmol/L 08/03/20 04:00 BUN 70 mg/dL (9-20) H 08/03/20 04:00 Creatinine 2.6 mg/dL (0.8-1.3) H 08/03/20 04:00 Estimated GFR 30 ml/min 08/03/20 04:00 BUN/Creatinine Ratio 27 % 08/03/20 04:00 Glucose 102 mg/dL (75-100) H 08/03/20 04:00 POC Glucose 95 mg/dL (70-105) 08/03/20 05:20 Lactic Acid 0.90 mmol/L (0.7-2.0) 07/23/20 Unknown Calcium 8.1 mg/dL (8.4-10.2) L 08/03/20 04:00 Phosphorus 9.40 mg/dL (2.5-4.5) H 06/30/20 03:50 Magnesium 2.70 mg/dL (1.7-2.3) H 06/18/20 20:33 Ferritin 1171.0 ng/mL (30.0-300.0) H 07/03/20 14:50 Total Bilirubin 0.20 mg/dL (0.1-1.2) 07/24/20 06:40 Direct Bilirubin 0.5 mg/dL (0-0.2) H 07/05/20 08:21 Indirect Bilirubin 0.1 mg/dL 07/05/20 08:21 AST 46 units/L (5-40) H 07/24/20 06:40 ALT 74 units/L (7-56) H 07/24/20 06:40 Alkaline Phosphatase 180 units/L (35-129) H 07/24/20 06:40 Lactate Dehydrogenase 525 units/L (91-180) H 07/03/20 14:50 Total Creatine Kinase 618 units/L (55-170) H 06/29/20 Unknown Troponin T < 0.010 ng/mL (0.00-0.029) 06/17/20 12:33 C-Reactive Protein 31.50 mg/dL (0.00-1.30) H 07/03/20 14:50 Total Protein 4.6 g/dL (6.3-8.2) L 07/24/20 06:40 Albumin 2.0 g/dL (3.9-5) L 07/24/20 06:40 Albumin/Globulin Ratio 0.8 % 07/24/20 06:40 Triglycerides 184 mg/dL (2-149) H 07/30/20 Unknown Procalcitonin 6.05 ng/mL (<0.15) 07/13/20 06:59 Arterial Blood Glucose 97 mg/dL (65-95) H 08/03/20 04:10 Arterial Blood Ionized Calcium 4.6 mg/dL (4.6-5.3) 08/03/20 04:10 Urine Color Yellow (Yellow) 06/17/20 15:57 Urine Turbidity Clear (Clear) 06/17/20 15:57 Urine pH 6.0 (5.0-7.0) 06/17/20 15:57 Ur Specific [place] 1.019 (1.003-1.030) 06/17/20 15:57 Urine Protein 30 mg/dl mg/dL (Negative) 06/17/20 15:57 Urine Glucose (UA) Neg mg/dL (Negative) 06/17/20 15:57 Urine Ketones Neg mg/dL (Negative) 06/17/20 15:57 Urine Blood Sm (Negative) 06/17/20 15:57 Urine Nitrite Neg (Negative) 06/17/20 15:57 Ur Reducing Substances Not Reportable 06/17/20 15:57 Urine Bilirubin Neg (Negative) 06/17/20 15:57 Urine Ictotest Not Reportable 06/17/20 15:57 Urine Urobilinogen < 2.0 mg/dL (<2.0) 06/17/20 15:57 Ur Leukocyte Esterase Neg (Negative) 06/17/20 15:57 Urine WBC (Auto) 1.0 /HPF (0.0-6.0) 06/17/20 15:57 Urine RBC (Auto) 2.0 /HPF (0.0-6.0) 06/17/20 15:57 Urine Mucus Few /HPF 06/17/20 15:57 Urine Creatinine 192.4 mg/dL (0.1-20.0) H 06/18/20 15:00 Urine Sodium 28 mmol/L 06/18/20 15:00 Urine Chloride 31.1 mmolL (110-250) L 06/18/20 15:00 Nasal Screen MRSA (PCR) Negative (Negative) 06/19/20 10:38 Vancomycin Trough 22.7 ug/mL (5.0-20.0) H 06/20/20 08:25 Random Vancomycin 13.5 ug/mL (0-40.0) 07/16/20 07:17 Coronavirus (PCR) Negative (Negative) 07/22/20 Unknown Hepatitis A IgM Ab Non-reactive (NonReactive) 06/22/20 17:00 Hep Bs Antigen Non-reactive (Negative) 06/22/20 17:00 Hep B Core IgM Ab Non-reactive (NonReactive) 06/22/20 17:00 Hepatitis C Antibody Non-reactive (NonReactive) 06/22/20 17:00 SARS-CoV-2 IgG Ab Nonreactive (NonReactive) 07/04/20 05:20 Blood Type A POSITIVE 07/30/20 23:13 Antibody Screen Negative 07/30/20 23:13 Crossmatch See Detail 07/30/20 23:13 Microbiology: Microbiology 08/01/20 08:15 Tracheal Aspirate Sputum Culture - Preliminary Gram Negative Aldo 07/31/20 16:16 Peripheral/Venous Blood Culture - Preliminary NO GROWTH AFTER 48 HOURS 07/31/20 16:15 Peripheral/Venous Blood Culture - Preliminary NO GROWTH AFTER 48 HOURS - Diagnostic Impressions Diagnostic Impressions: Echocardiogram 06/29/20 06:00 Transthoracic Echocardiogram Indication: A-fib BP: 105/47 HR: 99 Conclusions *The study is technically very difficult and limited due to poor acoustic windows. *Global left ventricular wall motion and contractility are within normal limits. *The estimated ejection fraction is 55-60%. *There is no pericardial effusion. Findings Procedure Info: The study quality is technically difficult. The study is technically limited due to poor acoustic windows. Left Ventricle: Global left ventricular wall motion and contractility are within normal limits. Global left ventricular systolic function is normal. The estimated ejection fraction is 55-60%. Left Atrium: The left atrium is not well visualized. Right Ventricle: The right ventricle is not well visualized. Right Atrium: The right atrium is not well visualized. Aortic Valve: The aortic valve is not well visualized. Mitral Valve: The mitral valve is not well visualized. Tricuspid Valve: The tricuspid valve is not well visualized. Pulmonic Valve: The pulmonic valve is not well visualized. Pericardium: There is no pericardial effusion. Venous: There is no change in the dimension of the inferior vena cava with respiration consistent with markedly increased right atrial pressure. Newell/IV: Voiding Method Incontinent Active Medications - Current Medications Current Medications: Generic Name Dose Route Start Last Admin Trade Name Freq PRN Reason Stop Dose Admin Acetaminophen 650 mg 06/17/20 14:17 08/02/20 06:00 Acetaminophen 325 Mg Tab PO 650 mg Q4H PRN Administration Pain MILD(1-3)/Fever >100.5/ROBERTS Albuterol 2.5 mg 07/19/20 12:15 Albuterol 2.5 Mg/3 Ml Nebu IH Q6HRT PRN Shortness Of Breath Alteplase, Recombinant 2 mg 07/27/20 18:40 Alteplase 2 Mg Inj IV PAM PRN LINE FLUSH Amiodarone HCl 200 mg 07/19/20 14:00 08/03/20 10:38 Amiodarone 200 Mg Tab PO 200 mg BID CONNOR Administration Lipase/Protease/Amylase 1 each 06/19/20 12:15 Lipase 10,500/Protease 25,000/Amylase 43,750 (Units) Dr Shad FEEDTUBE PRN PRN For Clogged Feeding Tube Ascorbic Acid 250 mg 06/17/20 22:00 08/03/20 12:33 Ascorbic Acid 250 Mg Tab PO 250 mg BID CONNOR Administration Cholecalciferol 1,000 unit 06/18/20 10:00 08/03/20 12:33 Cholecalciferol (Vit D3) 1000 Unit (25 Mcg) Tab PO 1,000 unit DAILY CONNOR Administration Dextrose 50 ml 07/26/20 22:00 07/27/20 06:42 Dextrose 50% In Water (25gm) 50 Ml Syringe IV 50 ml Q30MIN PRN Administration Hypoglycemia Protocol Docusate Sodium 100 mg 06/23/20 15:00 08/03/20 12:33 Docusate Sodium 100 Mg/10 Ml Oral Liqd FEEDTUBE 100 mg BID CONNOR Administration Fentanyl 50 mcg 06/18/20 01:02 07/27/20 16:59 Fentanyl 100 Mcg/2 Ml Inj IV 50 mcg Q10MIN PRN Administration ANALGESIA Heparin Sodium (Porcine) 5,000 unit 06/22/20 12:53 07/28/20 20:45 Heparin 10,000 Unit/1 Ml Vial IV 5,000 unit PAM PRN Administration hemodialysis Hydrophilic Ointment 1 applic 06/17/20 22:52 07/12/20 20:22 Lip Therapy Vaseline TP 1 applic Q2HR PRN Administration Dry Lips Propofol 1,000 mg in 100 mls @ 3.402 mls/hr 06/18/20 01:00 08/03/20 12:41 Diprivan 10 Mg/Ml IV 10 mcg/kg/min TITR CONNOR 6.804 mls/hr Administration Protocol 5 MCG/KG/MIN Fentanyl Citrate 2,000 mcg in 100 mls @ 8 mls/hr 06/18/20 02:00 08/03/20 11:31 Fentanyl Drip Premix IV 4 mcg/kg/hr TITR CONNOR 32 mls/hr Administration Protocol 1 MCG/KG/HR Norepinephrine 4 mg in 250 mls @ 7.5 mls/hr 07/08/20 02:06 08/03/20 12:15 Levophed Drip 4 Mg/Ns 250 Ml IV 8 mcg/min TITR CONNOR 30 mls/hr Titration Protocol 2 MCG/MIN Vasopressin 20 unit/ Sodium 101 mls @ 9.09 mls/hr 07/11/20 11:00 08/03/20 12:41 Chloride IV 0.03 units/min TITR CONNOR 9.09 mls/hr Administration Protocol 0.03 UNITS/MIN Amiodarone HCl 900 mg/ 500 mls @ 33.333 mls/hr 07/27/20 17:00 07/31/20 17:58 Dextrose IV 0.5 mg/min DIRECT CONNOR 16.667 mls/hr Administration Protocol 1 MG/MIN Sodium Chloride 100 mls @ 999 mls/hr 07/27/20 18:40 Nacl 0.9% IV PAM PRN Hypotension Cefepime HCl 2 gm in 100 mls @ 200 mls/hr 08/02/20 10:00 08/03/20 12:33 Cefepime/Ns 2 Gm/100 Ml IV 200 mls/hr Q24H CONNOR Administration Protocol Insulin Human Regular 0 units 06/18/20 12:00 08/03/20 05:20 Insulin Regular, Human 100 Units/1 Ml SUB-Q Not Given Q6HR [facility] Protocol Multi-Ingred Cream/Lotion/Oil/Oint 1 applic 06/17/20 22:52 07/12/20 20:22 Mineral Oil/Petrolatum, White Ophth Oint 3.5 Gm OU 1 applic Q4HR PRN Administration Dry Eye(s) Ondansetron HCl 4 mg 06/17/20 14:17 Ondansetron 4 Mg/2 Ml Inj IV Q8H PRN Nausea And Vomiting Pantoprazole Sodium 40 mg 07/16/20 22:00 08/03/20 12:32 Pantoprazole 40 Mg Inj IV 40 mg BID CONNOR Administration Polyethylene Glycol 17 gm 06/23/20 15:00 08/03/20 12:32 Polyethylene Glycol 3350 17 Gm Powder PO 17 gm QDAY CONNOR Administration Quetiapine Fumarate 200 mg 06/28/20 13:00 08/03/20 10:38 Quetiapine 200 Mg Tab PO 200 mg BID CONNOR Administration Scopolamine 1 each 07/29/20 14:00 08/01/20 09:25 Scopolamine Transdermal Patch 72 Hr TD 1 each Q3D CONNOR Administration Simple Syrup 15 ml 06/19/20 12:15 07/26/20 13:55 Simple Syrup 15 Ml FEEDTUBE 15 ml PRN PRN Administration Hypoglycemia Simple Syrup 30 ml 06/19/20 12:15 07/19/20 06:04 Simple Syrup 15 Ml FEEDTUBE 30 ml PRN PRN Administration Hypoglycemia Sodium Bicarbonate 325 mg 06/19/20 12:15 07/11/20 20:00 Sodium Bicarbonate 325 Mg Tab FEEDTUBE 325 mg PRN PRN Administration For Clogged Feeding Tube Sodium Chloride 10 ml 06/17/20 22:00 08/03/20 10:39 Sodium Chloride 0.9% 10 Ml Flush Syringe IV 10 ml BID CONNOR Administration Sodium Chloride 10 ml 06/17/20 14:17 07/30/20 09:46 Sodium Chloride 0.9% 10 Ml Flush Syringe IV 10 ml PRN PRN Administration LINE FLUSH Sodium Hypochlorite 1 applic 07/20/20 10:00 08/02/20 21:12 Sodium Hypochlorite, Dakin's 1/2 Strength (0.25%) 473 Ml Topical Soln TP 1 applicatio BID CONNOR Administration Zinc Sulfate 220 mg 06/17/20 22:00 08/03/20 12:32 Zinc Sulfate 220 Mg Cap PO 220 mg BID CONNOR Administration Nutrition/Malnutrition Assess - Dietary Evaluation Nutrition/Malnutrition Findings: Nutrition Notes Start: 06/18/20 10:28 Freq: Status: Active Protocol: Document 08/01/20 11:47 CW (Rec: 08/01/20 11:57 CW [id number]) Nutrition Notes Initial or Follow up Reassessment Current Diagnosis Acute Kidney Injury,Sepsis, Respiratory Failure Other Pertinent Diagnosis Pneu, on HD. Current Diet Nepro 1.8 at 55 ml/hr Labs/Tests BUN 56 Cr 2.6 Pertinent Medications Zinc Vit C Norepipherine Propofol 3.2 ml/hr (84 kcal) Height 6 ft Weight 157.2 kg Winston Body Weight (kg) 80.90 BMI 47.0 Weight change and time frame weight stable at this time Weight Status Morbidly Obese Subjective/Other Information F/U TF running at new goal. TF of Nepro is running at 55 ml/ hr and being well tolerated. RN to follow up on administration of Gee. Pt remains on vent Percent of energy/protein needs met: 108%/66% Burn Absent Trauma Absent GI Symptoms Other Skin Integrity/Comment Unstageable Sacral Pressure Ulcer Current % PO Negligible Minimum of two criteria No physical signs of malnutrition #3 Nutrition Diagnosis Increased nutrient needs ( specify in comment below) Diagnosis Progress(for reassessment Continues documentation) #1 Nutrition Diagnosis Inadequate oral intake Diagnosis Progress(for reassessment Continues documentation) Is patient on ventilator? Yes Is Patient Ambulatory and/or Out of Bed No REE-([facility]-confined to bed) 2896.068 Kcal/Kg value to use for calculation 14 Approximate Energy Requirements Using 2201 kcal/Kg Calculation Used for Recommendations Kcal/kg Additional Notes Protein: Up to 162 g (up to 2. 5 g/kg IBW) Fluids: 1,000 ml + output Nutrition Intervention Change Diet Order: TF Nutrition Support: Nepro 1.8 at 55 ml/hr Flush 250 ml q4h Kcal 2,376 Protein (gm) 107 Fluid (mL) 959 Add Supplement/Snack (indicate name/kcal Gee BID /protein ) Provides kCal: 190 Provides Protein (gm) 5 Goal #1 TF tolerance Goal #2 Meet energy and protein needs as best as possible via TF Goal #3 Wound healing. Anticipated Discharge Needs: Nepro 1.8 at 55 ml/hr Flush 250 ml q4h with Richard BID until wound healed Follow-Up By: 08/04/20 Additional Comments F/U for TF tolerance and Gee tolerance
--- NOTE | 2020-08-03 12:47 | Progress Note ---
Assessment and Plan Acute hypoxemic respiratory failure due to COVID-19 Severe COVID infection Severe Sepsis with shock Bilateral pneumonia Acute kidney injury (GIRISH) with acute tubular necrosis (ATN) Elevated liver enzymes Obesity - add vasopressin - reduce set rate to 25/min - repeat ABG tonight - tentative transfer to LTAC in am - continue to wean vasopressors for target MAP > 65 mmHg (On Levophed & vasopressin) - continue wound care per RN / WCN - continue HD/UF per nephrology prescription - continue care as below otherwise; - daily SAT's as tolerated - continue wound care per WCN / RN - continue on bariatric bed - continue to avoid supine position as much as possible - adjust ant-infective's per ID rec's (Ampicillin) - continue bid protonix - continue tube feeds at goal rate as tolerated - continue HD/UF per nephrology team for toxin and volume clearance - continue bowel regimen - Continue to wean supplemental oxygen for O2 sats >92% - Monitor blood pressure closely while optimizing sedation,wean vasopressor support for MAP > 65 mmHg - VAP bundle addressed, aspiration precautions HOB >40 - continue lung protective strategies, permissive hypercapnic acceptable. - continue bronchodilators with routine trach care and pulmonary hygiene per RT - wean per pulmonary driven protocols otherwise - accuchecks with glycemic control per SSI (While critically ill target blood glucose of 140-180 mg/dL; avoid hypoglycemia) - sedation prn for target RASS -1 to -2 - continue enteral nutritional support at goal rate as tolerated - on antibiotics per ID recommendations - follow clinically re: fevers / WBC - Monitor liver function test ,avoid hepatotoxic agents - azotemia per nephrology rec's - Avoid nephrotoxins, renally dose all medications, conservative fluid management - continue to avoid benzodiazepines, reduce the possibility of delirium, - prn analgesia per CPOT score - Maintenance of sleep-wake cycle, avoid delirium - Stress ulcer prophylaxis, Pantoprazole - PT/OT/ROM exercises - Mobility protocols for pressure ulcer prevention - CXR, ABG in am - CBC, CMP in am - Supportive transfusions to keep HgB >7g/dL - Monitor hemodynamics closely - continue other care per attending / other consultants COVID SPECIFIC INTERVENTIONS - s/p steroids: Dexamethasone - completed Remdesivir - monitor inflammatory markers prn - ferritin, D-dimer, CRP, LDH per facility protocol - continue anticoagulation per System Protocol based on d-dimer (on hold due to bleeding) - continue contact and airborne isolation CONDITION: CRITICAL PROGNOSIS: GUARDED CODE STATUS: FULL CODE The high probability of a clinically significant, sudden or life-threatening deterioration of the [respiratory, cardiovascular, hematologic & neurologic] system(s) required my full and direct attention, intervention and personal management. The aggregate critical care time was [33] minutes without overlap. Time includes spent on; [x] Data Review and interpretation [x] Patient assessment and monitoring of vital signs [x] Documentation [x] Medication orders and management He was evaluated in the context of the global COVID-19 pandemic, which necessitated consideration that the patient might be at risk for infection with the virus that causes COVID-19. Institutional protocols and algorithms that pertain to the evaluation of patients at risk for COVID-19 are in a state of rapid change based on information released by regulatory bodies including the CDC and federal and state organizations. These policies and algorithms were followed during the patient's care in the ICU Please note that these policies, procedures and recommendations changed on a rapid basis. Subjective Date of service: 08/03/20 Principal diagnosis: ARF; Septic Shock; COVID-19 PNA; Atrial fibrillation; Obesity Interval history: Patient is seen today for: Ac hypoxemic respiratory failure; COVID-19; Severe Sepsis with shock; Zackery. pneumonia; GIRISH; Elevated liver enzymes; Obesity Seen and examined at bedside; 24hour events reviewed; nursing and respiratory care staff consulted; no adverse overnight events reported to me; resting in bed; remains on MVS; HD/UF again today; BP's soft now; tracheal secretions large today; no emesis or overt aspiration; afebrile Objective Vital Signs - 12hr 08/03/20 08/03/20 08/03/20 01:00 01:30 02:00 Temperature Pulse Rate 112 H 112 H 101 H Respiratory 15 32 H 29 H Rate Blood Pressure 104/48 101/53 109/54 O2 Sat by Pulse 98 99 99 Oximetry O2 Sat by Pulse Oximetry [ Anterior Bilateral Throughout] O2 Sat by Pulse Oximetry [ Assessment] 08/03/20 08/03/20 08/03/20 02:30 03:00 03:30 Temperature Pulse Rate 116 H 113 H 122 H Respiratory 30 H 30 H 30 H Rate Blood Pressure 112/51 99/53 104/55 O2 Sat by Pulse 99 99 99 Oximetry O2 Sat by Pulse Oximetry [ Anterior Bilateral Throughout] O2 Sat by Pulse Oximetry [ Assessment] 08/03/20 08/03/20 08/03/20 04:00 04:30 04:58 Temperature 99.3 F Pulse Rate 113 H 127 H 124 H Respiratory 30 H 30 H Rate Blood Pressure 105/54 93/49 104/56 O2 Sat by Pulse 99 95 95 Oximetry O2 Sat by Pulse Oximetry [ Anterior Bilateral Throughout] O2 Sat by Pulse 98 Oximetry [ Assessment] 08/03/20 08/03/20 08/03/20 05:01 05:30 06:00 Temperature Pulse Rate 122 H 108 H 122 H Respiratory 27 H 30 H 20 Rate Blood Pressure 89/62 119/58 115/56 O2 Sat by Pulse 95 94 95 Oximetry O2 Sat by Pulse Oximetry [ Anterior Bilateral Throughout] O2 Sat by Pulse Oximetry [ Assessment] 08/03/20 08/03/20 08/03/20 06:30 07:00 07:30 Temperature Pulse Rate 118 H 119 H 113 H Respiratory 30 H 27 H 30 H Rate Blood Pressure 99/53 99/51 94/55 O2 Sat by Pulse 96 96 96 Oximetry O2 Sat by Pulse Oximetry [ Anterior Bilateral Throughout] O2 Sat by Pulse Oximetry [ Assessment] 08/03/20 08/03/20 08/03/20 07:41 08:00 08:01 Temperature 97.6 F Pulse Rate 113 H 113 H Respiratory 30 H 24 Rate Blood Pressure 134/65 O2 Sat by Pulse 98 93 Oximetry O2 Sat by Pulse Oximetry [ Anterior Bilateral Throughout] O2 Sat by Pulse Oximetry [ Assessment] 08/03/20 08/03/20 08/03/20 08:10 08:15 08:30 Temperature 99.3 F Pulse Rate 112 H 112 H 138 H Respiratory 30 H 36 H Rate Blood Pressure 117/57 117/57 117/57 O2 Sat by Pulse 93 Oximetry O2 Sat by Pulse 94 Oximetry [ Anterior Bilateral Throughout] O2 Sat by Pulse Oximetry [ Assessment] 08/03/20 08/03/20 08/03/20 08:45 09:00 09:15 Temperature Pulse Rate 107 H 113 H 110 H Respiratory 32 H Rate Blood Pressure 97/45 103/50 113/49 O2 Sat by Pulse 94 Oximetry O2 Sat by Pulse Oximetry [ Anterior Bilateral Throughout] O2 Sat by Pulse Oximetry [ Assessment] 08/03/20 08/03/20 08/03/20 09:16 09:30 09:45 Temperature Pulse Rate 111 H 107 H 121 H Respiratory 32 H Rate Blood Pressure 113/49 109/45 105/49 O2 Sat by Pulse 95 94 Oximetry O2 Sat by Pulse Oximetry [ Anterior Bilateral Throughout] O2 Sat by Pulse Oximetry [ Assessment] 08/03/20 08/03/20 08/03/20 10:00 10:15 10:30 Temperature Pulse Rate 119 H 120 H 119 H Respiratory 24 29 H Rate Blood Pressure 97/43 102/47 83/48 O2 Sat by Pulse 93 95 Oximetry O2 Sat by Pulse Oximetry [ Anterior Bilateral Throughout] O2 Sat by Pulse Oximetry [ Assessment] 08/03/20 08/03/20 08/03/20 10:45 11:00 11:15 Temperature Pulse Rate 128 H 105 H 125 H Respiratory 23 Rate Blood Pressure 101/52 101/52 115/53 O2 Sat by Pulse 95 Oximetry O2 Sat by Pulse Oximetry [ Anterior Bilateral Throughout] O2 Sat by Pulse Oximetry [ Assessment] 08/03/20 08/03/20 08/03/20 11:30 11:31 11:45 Temperature Pulse Rate 117 H 112 H 129 H Respiratory 41 H Rate Blood Pressure 127/72 127/72 106/72 O2 Sat by Pulse 96 Oximetry O2 Sat by Pulse Oximetry [ Anterior Bilateral Throughout] O2 Sat by Pulse Oximetry [ Assessment] 08/03/20 08/03/20 08/03/20 12:00 12:01 12:07 Temperature 97.5 F L 97.8 F Pulse Rate 115 H 111 H 129 H Respiratory 30 H 30 H 31 H Rate Blood Pressure 93/45 106/42 O2 Sat by Pulse 98 95 Oximetry O2 Sat by Pulse 96 Oximetry [ Anterior Bilateral Throughout] O2 Sat by Pulse Oximetry [ Assessment] Constitutional: no acute distress, other (obese, atraumatic, normocephalic, mild resp distress, orally intubated) Eyes: non-icteric ENT: oropharynx moist, other (s/p tracheostomy) Neck: supple, no lymphadenopathy, other (Large , short neck) Effort: mildly labored Ascultation: Bilateral: diminished breath sounds, rales Percussion: Bilateral: not dull Cardiovascular: irregular rhythm, other (S1,S2) Gastrointestinal: normoactive bowel sounds, soft, non-tender, non-distended (protuberant) Integumentary: rash, other (Femoral CVC, Newell catheter) Extremities: pink and warm, pulses normal, no ischemia or petechiae, edema (trace to 1+) Neurologic: non-focal exam (grossly), pupils equal and round, CN II-XII normal, other (unable to assess, sedated) Psychiatric: other (unable to assess, sedated) CBC and BMP: 08/03/20 09:14 08/03/20 04:00 ABG, PT/INR, D-dimer: ABG ABG pH 7.321 (7.320-7.450) 08/03/20 04:10 POC ABG pCO2 40.7 mmHg (32.0-48.0) 08/03/20 04:10 ABG pCO2 44.4 mm Hg 07/28/20 14:31 POC ABG pO2 133.7 mmHg (83-108) H 08/03/20 04:10 ABG pO2 68.0 mm Hg (80.0-90.0) L 07/28/20 14:31 POC ABG HCO3 20.5 08/03/20 04:10 ABG O2 Saturation 98.9 (0-100) 08/03/20 04:10 PT/INR, D-dimer PT 15.3 Sec. (12.2-14.9) H 07/24/20 20:40 INR 1.21 (0.87-1.13) H 07/24/20 20:40 D-Dimer 6608.00 ng/mlDDU (0-234) H 07/03/20 14:50 Abnormal lab findings: Abnormal Labs 06/17/20 06/17/20 06/17/20 12:33 12:33 12:33 WBC 19.5 H RBC 5.18 H Hgb 15.5 H Hct MCHC RDW Plt Count Lymph % (Auto) 3.8 L [place] % (Auto) Lymph # (Auto) 0.7 L [place] # (Auto) Eos # (Auto) Baso # (Auto) Seg Neutrophils % Seg Neuts % (Manual) 99.0 H Lymphocytes % (Manual) 1.0 L Monocytes % (Manual) Basophils % (Manual) Nucleated RBC % Seg Neutrophils # 18.2 H Seg Neutrophils # Man 19.3 H Lymphocytes # (Manual) 0.2 L Monocytes # (Manual) Eosinophils # (Manual) Basophils # (Manual) PT 16.5 H INR 1.33 H APTT D-Dimer 1025.04 H Heparin Anti-Xa Level ABG pH POC ABG pCO2 POC ABG pO2 ABG pO2 ABG HCO3 ABG O2 Saturation ABG Base Excess ABG Hemoglobin ABG Oxyhemoglobin ABG Sodium ABG Potassium ABG Chloride ABG Glucose Oxyhemoglobin Carboxyhemoglobin Sodium 130 L Potassium 3.4 L Chloride 95.0 L Carbon Dioxide BUN 21 H Creatinine Glucose 137 H POC Glucose Lactic Acid Calcium 7.9 L Phosphorus Magnesium Ferritin Direct Bilirubin AST 84 H ALT 67 H Alkaline Phosphatase Lactate Dehydrogenase 437 H Total Creatine Kinase 310 H C-Reactive Protein 27.90 H Total Protein Albumin 2.9 L Triglycerides Arterial Blood Glucose Arterial Blood Ionized Calcium Urine Creatinine Urine Chloride Vancomycin Trough Coronavirus (PCR) Crossmatch 06/17/20 06/17/20 06/17/20 12:33 12:33 14:48 WBC RBC Hgb Hct MCHC RDW Plt Count Lymph % (Auto) [place] % (Auto) Lymph # (Auto) [place] # (Auto) Eos # (Auto) Baso # (Auto) Seg Neutrophils % Seg Neuts % (Manual) Lymphocytes % (Manual) Monocytes % (Manual) Basophils % (Manual) Nucleated RBC % Seg Neutrophils # Seg Neutrophils # Man Lymphocytes # (Manual) Monocytes # (Manual) Eosinophils # (Manual) Basophils # (Manual) PT INR APTT D-Dimer Heparin Anti-Xa Level ABG pH POC ABG pCO2 POC ABG pO2 ABG pO2 ABG HCO3 ABG O2 Saturation ABG Base Excess ABG Hemoglobin ABG Oxyhemoglobin ABG Sodium ABG Potassium ABG Chloride ABG Glucose Oxyhemoglobin Carboxyhemoglobin Sodium Potassium Chloride Carbon Dioxide BUN Creatinine Glucose POC Glucose Lactic Acid 2.50 H* 2.20 H* Calcium Phosphorus Magnesium Ferritin 2297.0 H Direct Bilirubin AST ALT Alkaline Phosphatase Lactate Dehydrogenase Total Creatine Kinase C-Reactive Protein Total Protein Albumin Triglycerides Arterial Blood Glucose Arterial Blood Ionized Calcium Urine Creatinine Urine Chloride Vancomycin Trough Coronavirus (PCR) Crossmatch 06/17/20 06/17/20 06/17/20 14:48 14:48 14:48 WBC RBC Hgb Hct MCHC RDW Plt Count Lymph % (Auto) [place] % (Auto) Lymph # (Auto) [place] # (Auto) Eos # (Auto) Baso # (Auto) Seg Neutrophils % Seg Neuts % (Manual) Lymphocytes % (Manual) Monocytes % (Manual) Basophils % (Manual) Nucleated RBC % Seg Neutrophils # Seg Neutrophils # Man Lymphocytes # (Manual) Monocytes # (Manual) Eosinophils # (Manual) Basophils # (Manual) PT INR APTT D-Dimer 939.89 H Heparin Anti-Xa Level ABG pH POC ABG pCO2 POC ABG pO2 ABG pO2 ABG HCO3 ABG O2 Saturation ABG Base Excess ABG Hemoglobin ABG Oxyhemoglobin ABG Sodium ABG Potassium ABG Chloride ABG Glucose Oxyhemoglobin Carboxyhemoglobin Sodium Potassium Chloride Carbon Dioxide BUN Creatinine Glucose 141 H POC Glucose Lactic Acid Calcium Phosphorus Magnesium Ferritin > 2000.0 H Direct Bilirubin AST ALT Alkaline Phosphatase Lactate Dehydrogenase 503 H Total Creatine Kinase C-Reactive Protein 24.70 H Total Protein Albumin Triglycerides Arterial Blood Glucose Arterial Blood Ionized Calcium Urine Creatinine Urine Chloride Vancomycin Trough Coronavirus (PCR) Crossmatch 06/17/20 06/17/20 06/17/20 16:54 19:39 23:43 WBC RBC Hgb Hct MCHC RDW Plt Count Lymph % (Auto) [place] % (Auto) Lymph # (Auto) [place] # (Auto) Eos # (Auto) Baso # (Auto) Seg Neutrophils % Seg Neuts % (Manual) Lymphocytes % (Manual) Monocytes % (Manual) Basophils % (Manual) Nucleated RBC % Seg Neutrophils # Seg Neutrophils # Man Lymphocytes # (Manual) Monocytes # (Manual) Eosinophils # (Manual) Basophils # (Manual) PT INR APTT D-Dimer Heparin Anti-Xa Level ABG pH 7.571 H POC ABG pCO2 24.3 L POC ABG pO2 41.6 L ABG pO2 ABG HCO3 ABG O2 Saturation ABG Base Excess ABG Hemoglobin ABG Oxyhemoglobin 84.0 L ABG Sodium 131.0 L ABG Potassium ABG Chloride ABG Glucose 163 H Oxyhemoglobin Carboxyhemoglobin Sodium Potassium Chloride Carbon Dioxide BUN Creatinine Glucose POC Glucose 185 H Lactic Acid 2.10 H* Calcium Phosphorus Magnesium Ferritin Direct Bilirubin AST ALT Alkaline Phosphatase Lactate Dehydrogenase Total Creatine Kinase C-Reactive Protein Total Protein Albumin Triglycerides Arterial Blood Glucose 163 H Arterial Blood Ionized Calcium 4.4 L Urine Creatinine Urine Chloride Vancomycin Trough Coronavirus (PCR) Crossmatch 06/18/20 06/18/20 06/18/20 00:17 00:23 03:55 WBC RBC Hgb Hct MCHC RDW Plt Count Lymph % (Auto) [place] % (Auto) Lymph # (Auto) [place] # (Auto) Eos # (Auto) Baso # (Auto) Seg Neutrophils % Seg Neuts % (Manual) Lymphocytes % (Manual) Monocytes % (Manual) Basophils % (Manual) Nucleated RBC % Seg Neutrophils # Seg Neutrophils # Man Lymphocytes # (Manual) Monocytes # (Manual) Eosinophils # (Manual) Basophils # (Manual) PT INR APTT D-Dimer Heparin Anti-Xa Level ABG pH POC ABG pCO2 POC ABG pO2 56.5 L 48.3 L ABG pO2 ABG HCO3 ABG O2 Saturation ABG Base Excess ABG Hemoglobin ABG Oxyhemoglobin 86.3 L 81.7 L ABG Sodium 132.9 L 131.0 L ABG Potassium ABG Chloride ABG Glucose 189 H 161 H Oxyhemoglobin Carboxyhemoglobin 0.4 L Sodium Potassium Chloride Carbon Dioxide BUN Creatinine Glucose POC Glucose Lactic Acid 3.80 H* Calcium Phosphorus Magnesium Ferritin Direct Bilirubin AST ALT Alkaline Phosphatase Lactate Dehydrogenase Total Creatine Kinase C-Reactive Protein Total Protein Albumin Triglycerides Arterial Blood Glucose 189 H 161 H Arterial Blood Ionized Calcium 4.3 L 4.2 L Urine Creatinine Urine Chloride Vancomycin Trough Coronavirus (PCR) Crossmatch 06/18/20 06/18/20 06/18/20 05:39 05:39 05:39 WBC 26.2 H RBC Hgb Hct MCHC RDW Plt Count Lymph % (Auto) [place] % (Auto) Lymph # (Auto) [place] # (Auto) Eos # (Auto) Baso # (Auto) Seg Neutrophils % Seg Neuts % (Manual) 90.0 H Lymphocytes % (Manual) 5.0 L Monocytes % (Manual) Basophils % (Manual) Nucleated RBC % Seg Neutrophils # Seg Neutrophils # Man 23.6 H Lymphocytes # (Manual) Monocytes # (Manual) 1.3 H Eosinophils # (Manual) Basophils # (Manual) PT INR APTT D-Dimer Heparin Anti-Xa Level ABG pH POC ABG pCO2 POC ABG pO2 ABG pO2 ABG HCO3 ABG O2 Saturation ABG Base Excess ABG Hemoglobin ABG Oxyhemoglobin ABG Sodium ABG Potassium ABG Chloride ABG Glucose Oxyhemoglobin Carboxyhemoglobin Sodium 135 L Potassium Chloride 97.5 L Carbon Dioxide 21 L BUN 39 H Creatinine 1.7 H D Glucose 168 H POC Glucose Lactic Acid 3.40 H* Calcium 7.2 L Phosphorus Magnesium Ferritin Direct Bilirubin AST ALT Alkaline Phosphatase Lactate Dehydrogenase Total Creatine Kinase C-Reactive Protein Total Protein Albumin Triglycerides Arterial Blood Glucose Arterial Blood Ionized Calcium Urine Creatinine Urine Chloride Vancomycin Trough Coronavirus (PCR) Crossmatch 06/18/20 06/18/20 06/18/20 07:24 09:00 10:10 WBC RBC Hgb Hct MCHC RDW Plt Count Lymph % (Auto) [place] % (Auto) Lymph # (Auto) [place] # (Auto) Eos # (Auto) Baso # (Auto) Seg Neutrophils % Seg Neuts % (Manual) Lymphocytes % (Manual) Monocytes % (Manual) Basophils % (Manual) Nucleated RBC % Seg Neutrophils # Seg Neutrophils # Man Lymphocytes # (Manual) Monocytes # (Manual) Eosinophils # (Manual) Basophils # (Manual) PT INR APTT D-Dimer Heparin Anti-Xa Level ABG pH POC ABG pCO2 POC ABG pO2 ABG pO2 ABG HCO3 ABG O2 Saturation ABG Base Excess ABG Hemoglobin ABG Oxyhemoglobin ABG Sodium ABG Potassium ABG Chloride ABG Glucose Oxyhemoglobin Carboxyhemoglobin Sodium Potassium Chloride Carbon Dioxide BUN Creatinine Glucose POC Glucose Lactic Acid 2.90 H* 3.20 H* Calcium Phosphorus Magnesium Ferritin Direct Bilirubin AST ALT Alkaline Phosphatase Lactate Dehydrogenase Total Creatine Kinase C-Reactive Protein Total Protein Albumin Triglycerides Arterial Blood Glucose Arterial Blood Ionized Calcium Urine Creatinine Urine Chloride Vancomycin Trough Coronavirus (PCR) Positive A Crossmatch 06/18/20 06/18/20 06/18/20 11:58 14:43 15:00 WBC RBC Hgb Hct MCHC RDW Plt Count Lymph % (Auto) [place] % (Auto) Lymph # (Auto) [place] # (Auto) Eos # (Auto) Baso # (Auto) Seg Neutrophils % Seg Neuts % (Manual) Lymphocytes % (Manual) Monocytes % (Manual) Basophils % (Manual) Nucleated RBC % Seg Neutrophils # Seg Neutrophils # Man Lymphocytes # (Manual) Monocytes # (Manual) Eosinophils # (Manual) Basophils # (Manual) PT INR APTT D-Dimer Heparin Anti-Xa Level ABG pH 7.303 L POC ABG pCO2 POC ABG pO2 82.3 L ABG pO2 ABG HCO3 ABG O2 Saturation ABG Base Excess ABG Hemoglobin ABG Oxyhemoglobin ABG Sodium 135.3 L ABG Potassium ABG Chloride ABG Glucose 215 H Oxyhemoglobin Carboxyhemoglobin 0.3 L Sodium Potassium Chloride Carbon Dioxide BUN Creatinine Glucose POC Glucose 209 H Lactic Acid Calcium Phosphorus Magnesium Ferritin Direct Bilirubin AST ALT Alkaline Phosphatase Lactate Dehydrogenase Total Creatine Kinase C-Reactive Protein Total Protein Albumin Triglycerides Arterial Blood Glucose 215 H Arterial Blood Ionized Calcium 4.2 L Urine Creatinine 192.4 H Urine Chloride 31.1 L Vancomycin Trough Coronavirus (PCR) Crossmatch 06/18/20 06/18/20 06/18/20 17:16 19:44 20:33 WBC RBC Hgb Hct MCHC RDW Plt Count Lymph % (Auto) [place] % (Auto) Lymph # (Auto) [place] # (Auto) Eos # (Auto) Baso # (Auto) Seg Neutrophils % Seg Neuts % (Manual) Lymphocytes % (Manual) Monocytes % (Manual) Basophils % (Manual) Nucleated RBC % Seg Neutrophils # Seg Neutrophils # Man Lymphocytes # (Manual) Monocytes # (Manual) Eosinophils # (Manual) Basophils # (Manual) PT INR APTT D-Dimer Heparin Anti-Xa Level ABG pH POC ABG pCO2 POC ABG pO2 ABG pO2 ABG HCO3 ABG O2 Saturation ABG Base Excess ABG Hemoglobin ABG Oxyhemoglobin ABG Sodium ABG Potassium ABG Chloride ABG Glucose Oxyhemoglobin Carboxyhemoglobin Sodium Potassium Chloride Carbon Dioxide BUN Creatinine Glucose POC Glucose 182 H Lactic Acid 3.00 H* Calcium Phosphorus Magnesium 2.70 H Ferritin Direct Bilirubin AST ALT Alkaline Phosphatase Lactate Dehydrogenase Total Creatine Kinase C-Reactive Protein Total Protein Albumin Triglycerides Arterial Blood Glucose Arterial Blood Ionized Calcium Urine Creatinine Urine Chloride Vancomycin Trough Coronavirus (PCR) Crossmatch 06/18/20 06/19/20 06/19/20 23:43 04:00 04:00 WBC 31.6 H RBC Hgb Hct MCHC RDW Plt Count Lymph % (Auto) [place] % (Auto) Lymph # (Auto) [place] # (Auto) Eos # (Auto) Baso # (Auto) Seg Neutrophils % Seg Neuts % (Manual) 98.0 H Lymphocytes % (Manual) 0.5 L Monocytes % (Manual) Basophils % (Manual) Nucleated RBC % Seg Neutrophils # Seg Neutrophils # Man 31.0 H Lymphocytes # (Manual) 0.2 L Monocytes # (Manual) Eosinophils # (Manual) Basophils # (Manual) PT INR APTT D-Dimer Heparin Anti-Xa Level ABG pH POC ABG pCO2 POC ABG pO2 ABG pO2 ABG HCO3 ABG O2 Saturation ABG Base Excess ABG Hemoglobin ABG Oxyhemoglobin ABG Sodium ABG Potassium ABG Chloride ABG Glucose Oxyhemoglobin Carboxyhemoglobin Sodium Potassium Chloride Carbon Dioxide BUN 56 H Creatinine 1.6 H Glucose 176 H POC Glucose 149 H Lactic Acid Calcium 7.0 L Phosphorus Magnesium Ferritin Direct Bilirubin AST 244 H ALT 159 H Alkaline Phosphatase Lactate Dehydrogenase Total Creatine Kinase C-Reactive Protein Total Protein 4.9 L D Albumin 2.5 L Triglycerides Arterial Blood Glucose Arterial Blood Ionized Calcium Urine Creatinine Urine Chloride Vancomycin Trough Coronavirus (PCR) Crossmatch 06/19/20 06/19/20 06/19/20 04:00 05:44 11:42 WBC RBC Hgb Hct MCHC RDW Plt Count Lymph % (Auto) [place] % (Auto) Lymph # (Auto) [place] # (Auto) Eos # (Auto) Baso # (Auto) Seg Neutrophils % Seg Neuts % (Manual) Lymphocytes % (Manual) Monocytes % (Manual) Basophils % (Manual) Nucleated RBC % Seg Neutrophils # Seg Neutrophils # Man Lymphocytes # (Manual) Monocytes # (Manual) Eosinophils # (Manual) Basophils # (Manual) PT INR APTT D-Dimer Heparin Anti-Xa Level ABG pH 7.265 L POC ABG pCO2 51.8 H POC ABG pO2 65.1 L ABG pO2 ABG HCO3 ABG O2 Saturation ABG Base Excess ABG Hemoglobin ABG Oxyhemoglobin ABG Sodium ABG Potassium ABG Chloride ABG Glucose 184 H Oxyhemoglobin Carboxyhemoglobin Sodium Potassium Chloride Carbon Dioxide BUN Creatinine Glucose POC Glucose 156 H 191 H Lactic Acid Calcium Phosphorus Magnesium Ferritin Direct Bilirubin AST ALT Alkaline Phosphatase Lactate Dehydrogenase Total Creatine Kinase C-Reactive Protein Total Protein Albumin Triglycerides Arterial Blood Glucose 184 H Arterial Blood Ionized Calcium 4.3 L Urine Creatinine Urine Chloride Vancomycin Trough Coronavirus (PCR) Crossmatch 06/19/20 06/19/20 06/19/20 12:30 17:16 18:36 WBC RBC Hgb Hct MCHC RDW Plt Count Lymph % (Auto) [place] % (Auto) Lymph # (Auto) [place] # (Auto) Eos # (Auto) Baso # (Auto) Seg Neutrophils % Seg Neuts % (Manual) Lymphocytes % (Manual) Monocytes % (Manual) Basophils % (Manual) Nucleated RBC % Seg Neutrophils # Seg Neutrophils # Man Lymphocytes # (Manual) Monocytes # (Manual) Eosinophils # (Manual) Basophils # (Manual) PT 16.4 H INR 1.32 H APTT D-Dimer Heparin Anti-Xa Level ABG pH 7.088 L POC ABG pCO2 78.1 H POC ABG pO2 208.3 H ABG pO2 ABG HCO3 ABG O2 Saturation ABG Base Excess ABG Hemoglobin ABG Oxyhemoglobin 98.3 H ABG Sodium ABG Potassium 5.0 H ABG Chloride ABG Glucose 182 H Oxyhemoglobin Carboxyhemoglobin 0.4 L Sodium Potassium Chloride Carbon Dioxide BUN Creatinine Glucose POC Glucose 154 H Lactic Acid Calcium Phosphorus Magnesium Ferritin Direct Bilirubin AST ALT Alkaline Phosphatase Lactate Dehydrogenase Total Creatine Kinase C-Reactive Protein Total Protein Albumin Triglycerides Arterial Blood Glucose 182 H Arterial Blood Ionized Calcium 4.3 L Urine Creatinine Urine Chloride Vancomycin Trough Coronavirus (PCR) Crossmatch 06/19/20 06/20/20 06/20/20 23:32 03:00 05:19 WBC RBC Hgb Hct MCHC RDW Plt Count Lymph % (Auto) [place] % (Auto) Lymph # (Auto) [place] # (Auto) Eos # (Auto) Baso # (Auto) Seg Neutrophils % Seg Neuts % (Manual) Lymphocytes % (Manual) Monocytes % (Manual) Basophils % (Manual) Nucleated RBC % Seg Neutrophils # Seg Neutrophils # Man Lymphocytes # (Manual) Monocytes # (Manual) Eosinophils # (Manual) Basophils # (Manual) PT INR APTT D-Dimer Heparin Anti-Xa Level 0.77 H ABG pH POC ABG pCO2 POC ABG pO2 ABG pO2 ABG HCO3 ABG O2 Saturation ABG Base Excess ABG Hemoglobin ABG Oxyhemoglobin ABG Sodium ABG Potassium ABG Chloride ABG Glucose Oxyhemoglobin Carboxyhemoglobin Sodium Potassium Chloride Carbon Dioxide BUN Creatinine Glucose POC Glucose 201 H 190 H Lactic Acid Calcium Phosphorus Magnesium Ferritin Direct Bilirubin AST ALT Alkaline Phosphatase Lactate Dehydrogenase Total Creatine Kinase C-Reactive Protein Total Protein Albumin Triglycerides Arterial Blood Glucose Arterial Blood Ionized Calcium Urine Creatinine Urine Chloride Vancomycin Trough Coronavirus (PCR) Crossmatch 06/20/20 06/20/20 06/20/20 08:25 08:25 11:36 WBC RBC Hgb Hct MCHC RDW Plt Count Lymph % (Auto) [place] % (Auto) Lymph # (Auto) [place] # (Auto) Eos # (Auto) Baso # (Auto) Seg Neutrophils % Seg Neuts % (Manual) Lymphocytes % (Manual) Monocytes % (Manual) Basophils % (Manual) Nucleated RBC % Seg Neutrophils # Seg Neutrophils # Man Lymphocytes # (Manual) Monocytes # (Manual) Eosinophils # (Manual) Basophils # (Manual) PT INR APTT D-Dimer Heparin Anti-Xa Level ABG pH POC ABG pCO2 POC ABG pO2 ABG pO2 ABG HCO3 ABG O2 Saturation ABG Base Excess ABG Hemoglobin ABG Oxyhemoglobin ABG Sodium ABG Potassium ABG Chloride ABG Glucose Oxyhemoglobin Carboxyhemoglobin Sodium 135 L Potassium 5.4 H Chloride 109.2 H Carbon Dioxide 19 L BUN 68 H Creatinine 2.5 H D Glucose 201 H POC Glucose 184 H Lactic Acid Calcium 5.5 L* D Phosphorus Magnesium Ferritin Direct Bilirubin AST 123 H ALT 86 H Alkaline Phosphatase Lactate Dehydrogenase Total Creatine Kinase C-Reactive Protein Total Protein 4.6 L Albumin 1.5 L Triglycerides Arterial Blood Glucose Arterial Blood Ionized Calcium Urine Creatinine Urine Chloride Vancomycin Trough 22.7 H Coronavirus (PCR) Crossmatch 06/20/20 06/20/20 06/20/20 11:40 17:28 20:00 WBC RBC Hgb Hct MCHC RDW Plt Count Lymph % (Auto) [place] % (Auto) Lymph # (Auto) [place] # (Auto) Eos # (Auto) Baso # (Auto) Seg Neutrophils % Seg Neuts % (Manual) Lymphocytes % (Manual) Monocytes % (Manual) Basophils % (Manual) Nucleated RBC % Seg Neutrophils # Seg Neutrophils # Man Lymphocytes # (Manual) Monocytes # (Manual) Eosinophils # (Manual) Basophils # (Manual) PT INR APTT D-Dimer Heparin Anti-Xa Level 0.89 H ABG pH 7.099 L POC ABG pCO2 61.1 H POC ABG pO2 ABG pO2 ABG HCO3 ABG O2 Saturation ABG Base Excess ABG Hemoglobin ABG Oxyhemoglobin ABG Sodium ABG Potassium 5.0 H ABG Chloride 111.0 H ABG Glucose 200 H Oxyhemoglobin Carboxyhemoglobin 0.4 L Sodium Potassium Chloride Carbon Dioxide BUN Creatinine Glucose POC Glucose 165 H Lactic Acid Calcium Phosphorus Magnesium Ferritin Direct Bilirubin AST ALT Alkaline Phosphatase Lactate Dehydrogenase Total Creatine Kinase C-Reactive Protein Total Protein Albumin Triglycerides Arterial Blood Glucose 200 H Arterial Blood Ionized Calcium 4.2 L Urine Creatinine Urine Chloride Vancomycin Trough Coronavirus (PCR) Crossmatch 06/20/20 06/21/20 06/21/20 23:29 05:00 05:20 WBC RBC Hgb Hct MCHC RDW Plt Count Lymph % (Auto) [place] % (Auto) Lymph # (Auto) [place] # (Auto) Eos # (Auto) Baso # (Auto) Seg Neutrophils % Seg Neuts % (Manual) Lymphocytes % (Manual) Monocytes % (Manual) Basophils % (Manual) Nucleated RBC % Seg Neutrophils # Seg Neutrophils # Man Lymphocytes # (Manual) Monocytes # (Manual) Eosinophils # (Manual) Basophils # (Manual) PT INR APTT D-Dimer Heparin Anti-Xa Level ABG pH POC ABG pCO2 POC ABG pO2 ABG pO2 ABG HCO3 ABG O2 Saturation ABG Base Excess ABG Hemoglobin ABG Oxyhemoglobin ABG Sodium ABG Potassium ABG Chloride ABG Glucose Oxyhemoglobin Carboxyhemoglobin Sodium Potassium Chloride 112.0 H Carbon Dioxide 20 L BUN 92 H Creatinine 3.9 H D Glucose 214 H POC Glucose 145 H 191 H Lactic Acid Calcium 6.5 L D Phosphorus Magnesium Ferritin Direct Bilirubin AST 98 H ALT 84 H Alkaline Phosphatase Lactate Dehydrogenase Total Creatine Kinase C-Reactive Protein Total Protein 4.6 L Albumin 2.1 L Triglycerides 180 H Arterial Blood Glucose Arterial Blood Ionized Calcium Urine Creatinine Urine Chloride Vancomycin Trough Coronavirus (PCR) Crossmatch 06/21/20 06/21/20 06/21/20 08:56 11:12 12:43 WBC RBC Hgb Hct MCHC RDW Plt Count Lymph % (Auto) [place] % (Auto) Lymph # (Auto) [place] # (Auto) Eos # (Auto) Baso # (Auto) Seg Neutrophils % Seg Neuts % (Manual) Lymphocytes % (Manual) Monocytes % (Manual) Basophils % (Manual) Nucleated RBC % Seg Neutrophils # Seg Neutrophils # Man Lymphocytes # (Manual) Monocytes # (Manual) Eosinophils # (Manual) Basophils # (Manual) PT INR APTT D-Dimer Heparin Anti-Xa Level 0.28 L ABG pH 7.184 L POC ABG pCO2 48.3 H POC ABG pO2 172.1 H ABG pO2 ABG HCO3 ABG O2 Saturation ABG Base Excess ABG Hemoglobin ABG Oxyhemoglobin 98.7 H ABG Sodium ABG Potassium 4.9 H ABG Chloride 112.0 H ABG Glucose 196 H Oxyhemoglobin Carboxyhemoglobin 0.2 L Sodium Potassium Chloride Carbon Dioxide BUN Creatinine Glucose POC Glucose 177 H Lactic Acid Calcium Phosphorus Magnesium Ferritin Direct Bilirubin AST ALT Alkaline Phosphatase Lactate Dehydrogenase Total Creatine Kinase C-Reactive Protein Total Protein Albumin Triglycerides Arterial Blood Glucose 196 H Arterial Blood Ionized Calcium 4.1 L Urine Creatinine Urine Chloride Vancomycin Trough Coronavirus (PCR) Crossmatch 06/21/20 06/21/20 06/22/20 16:31 Unknown 00:12 WBC RBC Hgb Hct MCHC RDW Plt Count Lymph % (Auto) [place] % (Auto) Lymph # (Auto) [place] # (Auto) Eos # (Auto) Baso # (Auto) Seg Neutrophils % Seg Neuts % (Manual) Lymphocytes % (Manual) Monocytes % (Manual) Basophils % (Manual) Nucleated RBC % Seg Neutrophils # Seg Neutrophils # Man Lymphocytes # (Manual) Monocytes # (Manual) Eosinophils # (Manual) Basophils # (Manual) PT INR APTT D-Dimer Heparin Anti-Xa Level 0.78 H ABG pH POC ABG pCO2 POC ABG pO2 ABG pO2 ABG HCO3 ABG O2 Saturation ABG Base Excess ABG Hemoglobin ABG Oxyhemoglobin ABG Sodium ABG Potassium ABG Chloride ABG Glucose Oxyhemoglobin Carboxyhemoglobin Sodium Potassium Chloride Carbon Dioxide BUN Creatinine Glucose POC Glucose 150 H 173 H Lactic Acid Calcium Phosphorus Magnesium Ferritin Direct Bilirubin AST ALT Alkaline Phosphatase Lactate Dehydrogenase Total Creatine Kinase C-Reactive Protein Total Protein Albumin Triglycerides Arterial Blood Glucose Arterial Blood Ionized Calcium Urine Creatinine Urine Chloride Vancomycin Trough Coronavirus (PCR) Crossmatch 06/22/20 06/22/20 06/22/20 04:00 05:04 05:30 WBC 33.9 H RBC Hgb 11.7 L Hct 35.2 L MCHC RDW 15.8 H Plt Count Lymph % (Auto) [place] % (Auto) Lymph # (Auto) [place] # (Auto) Eos # (Auto) Baso # (Auto) Seg Neutrophils % Seg Neuts % (Manual) 93.0 H Lymphocytes % (Manual) 5.0 L Monocytes % (Manual) Basophils % (Manual) Nucleated RBC % Seg Neutrophils # Seg Neutrophils # Man 31.5 H Lymphocytes # (Manual) Monocytes # (Manual) Eosinophils # (Manual) Basophils # (Manual) PT INR APTT D-Dimer Heparin Anti-Xa Level ABG pH 7.169 L POC ABG pCO2 POC ABG pO2 ABG pO2 ABG HCO3 ABG O2 Saturation ABG Base Excess ABG Hemoglobin ABG Oxyhemoglobin ABG Sodium ABG Potassium 5.1 H ABG Chloride 112.0 H ABG Glucose 186 H Oxyhemoglobin Carboxyhemoglobin 0.3 L Sodium Potassium Chloride Carbon Dioxide BUN Creatinine Glucose POC Glucose 161 H Lactic Acid Calcium Phosphorus Magnesium Ferritin Direct Bilirubin AST ALT Alkaline Phosphatase Lactate Dehydrogenase Total Creatine Kinase C-Reactive Protein Total Protein Albumin Triglycerides Arterial Blood Glucose 186 H Arterial Blood Ionized Calcium 4.1 L Urine Creatinine Urine Chloride Vancomycin Trough Coronavirus (PCR) Crossmatch 06/22/20 06/22/20 06/22/20 05:30 11:39 13:27 WBC RBC Hgb Hct MCHC RDW Plt Count Lymph % (Auto) [place] % (Auto) Lymph # (Auto) [place] # (Auto) Eos # (Auto) Baso # (Auto) Seg Neutrophils % Seg Neuts % (Manual) Lymphocytes % (Manual) Monocytes % (Manual) Basophils % (Manual) Nucleated RBC % Seg Neutrophils # Seg Neutrophils # Man Lymphocytes # (Manual) Monocytes # (Manual) Eosinophils # (Manual) Basophils # (Manual) PT INR APTT D-Dimer Heparin Anti-Xa Level ABG pH POC ABG pCO2 POC ABG pO2 ABG pO2 ABG HCO3 ABG O2 Saturation ABG Base Excess ABG Hemoglobin ABG Oxyhemoglobin ABG Sodium ABG Potassium ABG Chloride ABG Glucose Oxyhemoglobin Carboxyhemoglobin Sodium Potassium 5.7 H Chloride 111.3 H Carbon Dioxide 18 L BUN 112 H Creatinine 5.0 H Glucose 173 H POC Glucose 172 H 176 H Lactic Acid Calcium 6.7 L Phosphorus Magnesium Ferritin Direct Bilirubin AST ALT Alkaline Phosphatase Lactate Dehydrogenase Total Creatine Kinase C-Reactive Protein Total Protein Albumin Triglycerides Arterial Blood Glucose Arterial Blood Ionized Calcium Urine Creatinine Urine Chloride Vancomycin Trough Coronavirus (PCR) Crossmatch 06/22/20 06/22/20 06/22/20 14:37 17:00 17:40 WBC RBC Hgb Hct MCHC RDW Plt Count Lymph % (Auto) [place] % (Auto) Lymph # (Auto) [place] # (Auto) Eos # (Auto) Baso # (Auto) Seg Neutrophils % Seg Neuts % (Manual) Lymphocytes % (Manual) Monocytes % (Manual) Basophils % (Manual) Nucleated RBC % Seg Neutrophils # Seg Neutrophils # Man Lymphocytes # (Manual) Monocytes # (Manual) Eosinophils # (Manual) Basophils # (Manual) PT INR APTT D-Dimer Heparin Anti-Xa Level 1.32 H ABG pH POC ABG pCO2 POC ABG pO2 ABG pO2 ABG HCO3 ABG O2 Saturation ABG Base Excess ABG Hemoglobin ABG Oxyhemoglobin ABG Sodium ABG Potassium ABG Chloride ABG Glucose Oxyhemoglobin Carboxyhemoglobin Sodium Potassium Chloride Carbon Dioxide BUN Creatinine Glucose POC Glucose 171 H Lactic Acid Calcium Phosphorus Magnesium Ferritin Direct Bilirubin AST ALT Alkaline Phosphatase Lactate Dehydrogenase Total Creatine Kinase C-Reactive Protein 5.30 H Total Protein Albumin Triglycerides Arterial Blood Glucose Arterial Blood Ionized Calcium Urine Creatinine Urine Chloride Vancomycin Trough Coronavirus (PCR) Crossmatch 06/22/20 06/23/20 06/23/20 23:36 02:13 02:41 WBC RBC Hgb Hct MCHC RDW Plt Count Lymph % (Auto) [place] % (Auto) Lymph # (Auto) [place] # (Auto) Eos # (Auto) Baso # (Auto) Seg Neutrophils % Seg Neuts % (Manual) Lymphocytes % (Manual) Monocytes % (Manual) Basophils % (Manual) Nucleated RBC % Seg Neutrophils # Seg Neutrophils # Man Lymphocytes # (Manual) Monocytes # (Manual) Eosinophils # (Manual) Basophils # (Manual) PT INR APTT D-Dimer Heparin Anti-Xa Level 0.21 L ABG pH 7.318 L POC ABG pCO2 POC ABG pO2 157.5 H ABG pO2 ABG HCO3 ABG O2 Saturation ABG Base Excess ABG Hemoglobin ABG Oxyhemoglobin ABG Sodium 135.6 L ABG Potassium 4.6 H ABG Chloride 110.0 H ABG Glucose 169 H Oxyhemoglobin Carboxyhemoglobin Sodium Potassium Chloride Carbon Dioxide BUN Creatinine Glucose POC Glucose 155 H Lactic Acid Calcium Phosphorus Magnesium Ferritin Direct Bilirubin AST ALT Alkaline Phosphatase Lactate Dehydrogenase Total Creatine Kinase C-Reactive Protein Total Protein Albumin Triglycerides Arterial Blood Glucose 169 H Arterial Blood Ionized Calcium Urine Creatinine Urine Chloride Vancomycin Trough Coronavirus (PCR) Crossmatch 06/23/20 06/23/20 06/23/20 04:00 04:00 05:24 WBC 27.4 H RBC Hgb 11.3 L Hct 33.8 L MCHC RDW Plt Count Lymph % (Auto) [place] % (Auto) Lymph # (Auto) [place] # (Auto) Eos # (Auto) Baso # (Auto) Seg Neutrophils % Seg Neuts % (Manual) 93.0 H Lymphocytes % (Manual) 1.0 L Monocytes % (Manual) Basophils % (Manual) Nucleated RBC % 1.0 H Seg Neutrophils # Seg Neutrophils # Man 25.5 H Lymphocytes # (Manual) 0.3 L Monocytes # (Manual) 1.1 H Eosinophils # (Manual) Basophils # (Manual) PT INR APTT D-Dimer Heparin Anti-Xa Level ABG pH POC ABG pCO2 POC ABG pO2 ABG pO2 ABG HCO3 ABG O2 Saturation ABG Base Excess ABG Hemoglobin ABG Oxyhemoglobin ABG Sodium ABG Potassium ABG Chloride ABG Glucose Oxyhemoglobin Carboxyhemoglobin Sodium Potassium Chloride 107.6 H Carbon Dioxide 20 L BUN 100 H Creatinine 4.7 H Glucose 168 H POC Glucose 151 H Lactic Acid Calcium Phosphorus Magnesium Ferritin Direct Bilirubin AST ALT Alkaline Phosphatase Lactate Dehydrogenase Total Creatine Kinase C-Reactive Protein Total Protein Albumin Triglycerides Arterial Blood Glucose Arterial Blood Ionized Calcium Urine Creatinine Urine Chloride Vancomycin Trough Coronavirus (PCR) Crossmatch 06/23/20 06/23/20 06/23/20 11:30 17:18 23:50 WBC RBC Hgb Hct MCHC RDW Plt Count Lymph % (Auto) [place] % (Auto) Lymph # (Auto) [place] # (Auto) Eos # (Auto) Baso # (Auto) Seg Neutrophils % Seg Neuts % (Manual) Lymphocytes % (Manual) Monocytes % (Manual) Basophils % (Manual) Nucleated RBC % Seg Neutrophils # Seg Neutrophils # Man Lymphocytes # (Manual) Monocytes # (Manual) Eosinophils # (Manual) Basophils # (Manual) PT INR APTT D-Dimer Heparin Anti-Xa Level ABG pH POC ABG pCO2 POC ABG pO2 ABG pO2 ABG HCO3 ABG O2 Saturation ABG Base Excess ABG Hemoglobin ABG Oxyhemoglobin ABG Sodium ABG Potassium ABG Chloride ABG Glucose Oxyhemoglobin Carboxyhemoglobin Sodium Potassium Chloride Carbon Dioxide BUN Creatinine Glucose POC Glucose 157 H 156 H 162 H Lactic Acid Calcium Phosphorus Magnesium Ferritin Direct Bilirubin AST ALT Alkaline Phosphatase Lactate Dehydrogenase Total Creatine Kinase C-Reactive Protein Total Protein Albumin Triglycerides Arterial Blood Glucose Arterial Blood Ionized Calcium Urine Creatinine Urine Chloride Vancomycin Trough Coronavirus (PCR) Crossmatch 06/24/20 06/24/20 06/24/20 04:41 05:57 06:30 WBC 34.3 H RBC Hgb 10.9 L Hct 32.6 L MCHC RDW Plt Count Lymph % (Auto) 2.0 L [place] % (Auto) Lymph # (Auto) 0.7 L [place] # (Auto) 1.2 H Eos # (Auto) Baso # (Auto) Seg Neutrophils % Seg Neuts % (Manual) 96.0 H Lymphocytes % (Manual) 3.0 L Monocytes % (Manual) Basophils % (Manual) Nucleated RBC % Seg Neutrophils # 32.3 H Seg Neutrophils # Man 32.9 H Lymphocytes # (Manual) 1.0 L Monocytes # (Manual) Eosinophils # (Manual) Basophils # (Manual) PT INR APTT D-Dimer Heparin Anti-Xa Level ABG pH POC ABG pCO2 POC ABG pO2 71.1 L ABG pO2 ABG HCO3 ABG O2 Saturation ABG Base Excess ABG Hemoglobin ABG Oxyhemoglobin 92.4 L ABG Sodium 115.6 L ABG Potassium ABG Chloride ABG Glucose 159 H Oxyhemoglobin Carboxyhemoglobin Sodium Potassium Chloride Carbon Dioxide BUN Creatinine Glucose POC Glucose 143 H Lactic Acid Calcium Phosphorus Magnesium Ferritin Direct Bilirubin AST ALT Alkaline Phosphatase Lactate Dehydrogenase Total Creatine Kinase C-Reactive Protein Total Protein Albumin Triglycerides Arterial Blood Glucose 159 H Arterial Blood Ionized Calcium 4.2 L Urine Creatinine Urine Chloride Vancomycin Trough Coronavirus (PCR) Crossmatch 06/24/20 06/24/20 06/24/20 07:03 09:37 11:56 WBC RBC Hgb Hct MCHC RDW Plt Count Lymph % (Auto) [place] % (Auto) Lymph # (Auto) [place] # (Auto) Eos # (Auto) Baso # (Auto) Seg Neutrophils % Seg Neuts % (Manual) Lymphocytes % (Manual) Monocytes % (Manual) Basophils % (Manual) Nucleated RBC % Seg Neutrophils # Seg Neutrophils # Man Lymphocytes # (Manual) Monocytes # (Manual) Eosinophils # (Manual) Basophils # (Manual) PT INR APTT D-Dimer Heparin Anti-Xa Level 0.26 L ABG pH POC ABG pCO2 POC ABG pO2 ABG pO2 ABG HCO3 ABG O2 Saturation ABG Base Excess ABG Hemoglobin ABG Oxyhemoglobin ABG Sodium ABG Potassium ABG Chloride ABG Glucose Oxyhemoglobin Carboxyhemoglobin Sodium Potassium 5.1 H Chloride Carbon Dioxide BUN 103 H Creatinine 5.0 H Glucose 163 H POC Glucose 149 H Lactic Acid Calcium 7.6 L Phosphorus Magnesium Ferritin Direct Bilirubin AST ALT Alkaline Phosphatase Lactate Dehydrogenase Total Creatine Kinase C-Reactive Protein Total Protein Albumin Triglycerides Arterial Blood Glucose Arterial Blood Ionized Calcium Urine Creatinine Urine Chloride Vancomycin Trough Coronavirus (PCR) Crossmatch 06/24/20 06/25/20 06/25/20 18:09 01:05 03:00 WBC RBC Hgb 10.6 L Hct 32.1 L MCHC RDW Plt Count Lymph % (Auto) [place] % (Auto) Lymph # (Auto) [place] # (Auto) Eos # (Auto) Baso # (Auto) Seg Neutrophils % Seg Neuts % (Manual) Lymphocytes % (Manual) Monocytes % (Manual) Basophils % (Manual) Nucleated RBC % Seg Neutrophils # Seg Neutrophils # Man Lymphocytes # (Manual) Monocytes # (Manual) Eosinophils # (Manual) Basophils # (Manual) PT INR APTT D-Dimer Heparin Anti-Xa Level ABG pH POC ABG pCO2 POC ABG pO2 ABG pO2 ABG HCO3 ABG O2 Saturation ABG Base Excess ABG Hemoglobin ABG Oxyhemoglobin ABG Sodium ABG Potassium ABG Chloride ABG Glucose Oxyhemoglobin Carboxyhemoglobin Sodium Potassium Chloride Carbon Dioxide BUN Creatinine Glucose POC Glucose 141 H 137 H Lactic Acid Calcium Phosphorus Magnesium Ferritin Direct Bilirubin AST ALT Alkaline Phosphatase Lactate Dehydrogenase Total Creatine Kinase C-Reactive Protein Total Protein Albumin Triglycerides Arterial Blood Glucose Arterial Blood Ionized Calcium Urine Creatinine Urine Chloride Vancomycin Trough Coronavirus (PCR) Crossmatch 06/25/20 06/25/20 06/25/20 03:48 05:17 12:08 WBC RBC Hgb Hct MCHC RDW Plt Count Lymph % (Auto) [place] % (Auto) Lymph # (Auto) [place] # (Auto) Eos # (Auto) Baso # (Auto) Seg Neutrophils % Seg Neuts % (Manual) Lymphocytes % (Manual) Monocytes % (Manual) Basophils % (Manual) Nucleated RBC % Seg Neutrophils # Seg Neutrophils # Man Lymphocytes # (Manual) Monocytes # (Manual) Eosinophils # (Manual) Basophils # (Manual) PT INR APTT D-Dimer Heparin Anti-Xa Level ABG pH POC ABG pCO2 29.4 L POC ABG pO2 67.1 L ABG pO2 ABG HCO3 ABG O2 Saturation ABG Base Excess ABG Hemoglobin 11.5 L ABG Oxyhemoglobin ABG Sodium 124.1 L ABG Potassium 4.6 H ABG Chloride ABG Glucose 159 H Oxyhemoglobin Carboxyhemoglobin Sodium Potassium Chloride Carbon Dioxide BUN Creatinine Glucose POC Glucose 149 H 150 H Lactic Acid Calcium Phosphorus Magnesium Ferritin Direct Bilirubin AST ALT Alkaline Phosphatase Lactate Dehydrogenase Total Creatine Kinase C-Reactive Protein Total Protein Albumin Triglycerides Arterial Blood Glucose 159 H Arterial Blood Ionized Calcium 4.2 L Urine Creatinine Urine Chloride Vancomycin Trough Coronavirus (PCR) Crossmatch 06/25/20 06/25/20 06/25/20 16:27 16:35 17:27 WBC RBC Hgb Hct MCHC RDW Plt Count Lymph % (Auto) [place] % (Auto) Lymph # (Auto) [place] # (Auto) Eos # (Auto) Baso # (Auto) Seg Neutrophils % Seg Neuts % (Manual) Lymphocytes % (Manual) Monocytes % (Manual) Basophils % (Manual) Nucleated RBC % Seg Neutrophils # Seg Neutrophils # Man Lymphocytes # (Manual) Monocytes # (Manual) Eosinophils # (Manual) Basophils # (Manual) PT INR APTT D-Dimer Heparin Anti-Xa Level < 0.10 L ABG pH POC ABG pCO2 POC ABG pO2 ABG pO2 ABG HCO3 ABG O2 Saturation ABG Base Excess ABG Hemoglobin ABG Oxyhemoglobin ABG Sodium ABG Potassium ABG Chloride ABG Glucose Oxyhemoglobin Carboxyhemoglobin Sodium Potassium Chloride Carbon Dioxide BUN Creatinine Glucose POC Glucose 143 H 156 H Lactic Acid Calcium Phosphorus Magnesium Ferritin Direct Bilirubin AST ALT Alkaline Phosphatase Lactate Dehydrogenase Total Creatine Kinase C-Reactive Protein Total Protein Albumin Triglycerides Arterial Blood Glucose Arterial Blood Ionized Calcium Urine Creatinine Urine Chloride Vancomycin Trough Coronavirus (PCR) Crossmatch 06/25/20 06/25/20 06/25/20 20:00 20:55 23:10 WBC 32.7 H RBC 3.06 L Hgb 9.0 L 9.5 L Hct 26.7 L 28.6 L MCHC RDW Plt Count Lymph % (Auto) [place] % (Auto) Lymph # (Auto) [place] # (Auto) Eos # (Auto) Baso # (Auto) Seg Neutrophils % Seg Neuts % (Manual) Lymphocytes % (Manual) 2.0 L Monocytes % (Manual) Basophils % (Manual) Nucleated RBC % Seg Neutrophils # Seg Neutrophils # Man 30.7 H Lymphocytes # (Manual) 0.7 L Monocytes # (Manual) 1.3 H Eosinophils # (Manual) Basophils # (Manual) PT 17.7 H INR 1.47 H APTT 65.8 H* D-Dimer Heparin Anti-Xa Level ABG pH POC ABG pCO2 POC ABG pO2 ABG pO2 ABG HCO3 ABG O2 Saturation ABG Base Excess ABG Hemoglobin ABG Oxyhemoglobin ABG Sodium ABG Potassium ABG Chloride ABG Glucose Oxyhemoglobin Carboxyhemoglobin Sodium Potassium Chloride Carbon Dioxide BUN Creatinine Glucose POC Glucose Lactic Acid Calcium Phosphorus Magnesium Ferritin Direct Bilirubin AST ALT Alkaline Phosphatase Lactate Dehydrogenase Total Creatine Kinase C-Reactive Protein Total Protein Albumin Triglycerides Arterial Blood Glucose Arterial Blood Ionized Calcium Urine Creatinine Urine Chloride Vancomycin Trough Coronavirus (PCR) Crossmatch 06/25/20 06/26/20 06/26/20 23:14 01:30 03:25 WBC RBC Hgb Hct MCHC RDW Plt Count Lymph % (Auto) [place] % (Auto) Lymph # (Auto) [place] # (Auto) Eos # (Auto) Baso # (Auto) Seg Neutrophils % Seg Neuts % (Manual) Lymphocytes % (Manual) Monocytes % (Manual) Basophils % (Manual) Nucleated RBC % Seg Neutrophils # Seg Neutrophils # Man Lymphocytes # (Manual) Monocytes # (Manual) Eosinophils # (Manual) Basophils # (Manual) PT INR APTT D-Dimer Heparin Anti-Xa Level < 0.10 L ABG pH POC ABG pCO2 POC ABG pO2 ABG pO2 ABG HCO3 ABG O2 Saturation ABG Base Excess ABG Hemoglobin 11.8 L ABG Oxyhemoglobin ABG Sodium 127.1 L ABG Potassium 5.4 H ABG Chloride ABG Glucose 155 H Oxyhemoglobin Carboxyhemoglobin 0.3 L Sodium Potassium Chloride Carbon Dioxide BUN Creatinine Glucose POC Glucose 148 H Lactic Acid Calcium Phosphorus Magnesium Ferritin Direct Bilirubin AST ALT Alkaline Phosphatase Lactate Dehydrogenase Total Creatine Kinase C-Reactive Protein Total Protein Albumin Triglycerides Arterial Blood Glucose 155 H Arterial Blood Ionized Calcium 4.2 L Urine Creatinine Urine Chloride Vancomycin Trough Coronavirus (PCR) Crossmatch 06/26/20 06/26/20 06/26/20 03:59 05:14 05:47 WBC 36.5 H RBC 3.26 L Hgb 9.7 L Hct 28.2 L MCHC RDW Plt Count Lymph % (Auto) [place] % (Auto) Lymph # (Auto) [place] # (Auto) Eos # (Auto) Baso # (Auto) Seg Neutrophils % Seg Neuts % (Manual) 92.0 H Lymphocytes % (Manual) 4.0 L Monocytes % (Manual) Basophils % (Manual) Nucleated RBC % Seg Neutrophils # Seg Neutrophils # Man 33.6 H Lymphocytes # (Manual) Monocytes # (Manual) Eosinophils # (Manual) Basophils # (Manual) PT INR APTT D-Dimer Heparin Anti-Xa Level ABG pH POC ABG pCO2 POC ABG pO2 ABG pO2 ABG HCO3 ABG O2 Saturation ABG Base Excess ABG Hemoglobin ABG Oxyhemoglobin ABG Sodium ABG Potassium ABG Chloride ABG Glucose Oxyhemoglobin Carboxyhemoglobin Sodium Potassium 5.9 H Chloride Carbon Dioxide 20 L BUN 144 H Creatinine 6.4 H Glucose 149 H POC Glucose 128 H Lactic Acid Calcium 7.6 L Phosphorus Magnesium Ferritin Direct Bilirubin AST ALT Alkaline Phosphatase Lactate Dehydrogenase Total Creatine Kinase C-Reactive Protein Total Protein Albumin Triglycerides Arterial Blood Glucose Arterial Blood Ionized Calcium Urine Creatinine Urine Chloride Vancomycin Trough Coronavirus (PCR) Crossmatch 06/26/20 06/26/20 06/26/20 05:47 12:47 17:42 WBC RBC Hgb Hct MCHC RDW Plt Count Lymph % (Auto) [place] % (Auto) Lymph # (Auto) [place] # (Auto) Eos # (Auto) Baso # (Auto) Seg Neutrophils % Seg Neuts % (Manual) Lymphocytes % (Manual) Monocytes % (Manual) Basophils % (Manual) Nucleated RBC % Seg Neutrophils # Seg Neutrophils # Man Lymphocytes # (Manual) Monocytes # (Manual) Eosinophils # (Manual) Basophils # (Manual) PT 17.4 H INR 1.44 H APTT D-Dimer Heparin Anti-Xa Level ABG pH POC ABG pCO2 POC ABG pO2 ABG pO2 ABG HCO3 ABG O2 Saturation ABG Base Excess ABG Hemoglobin ABG Oxyhemoglobin ABG Sodium ABG Potassium ABG Chloride ABG Glucose Oxyhemoglobin Carboxyhemoglobin Sodium Potassium Chloride Carbon Dioxide BUN Creatinine Glucose POC Glucose 124 H 127 H Lactic Acid Calcium Phosphorus Magnesium Ferritin Direct Bilirubin AST ALT Alkaline Phosphatase Lactate Dehydrogenase Total Creatine Kinase C-Reactive Protein Total Protein Albumin Triglycerides Arterial Blood Glucose Arterial Blood Ionized Calcium Urine Creatinine Urine Chloride Vancomycin Trough Coronavirus (PCR) Crossmatch 06/26/20 06/27/20 06/27/20 23:30 03:32 04:00 WBC RBC Hgb 8.7 L Hct 26.4 L MCHC RDW Plt Count Lymph % (Auto) [place] % (Auto) Lymph # (Auto) [place] # (Auto) Eos # (Auto) Baso # (Auto) Seg Neutrophils % Seg Neuts % (Manual) Lymphocytes % (Manual) Monocytes % (Manual) Basophils % (Manual) Nucleated RBC % Seg Neutrophils # Seg Neutrophils # Man Lymphocytes # (Manual) Monocytes # (Manual) Eosinophils # (Manual) Basophils # (Manual) PT INR APTT D-Dimer Heparin Anti-Xa Level ABG pH 7.298 L POC ABG pCO2 POC ABG pO2 ABG pO2 ABG HCO3 ABG O2 Saturation ABG Base Excess ABG Hemoglobin 9.6 L ABG Oxyhemoglobin ABG Sodium 124.4 L ABG Potassium 6.6 H ABG Chloride ABG Glucose 136 H Oxyhemoglobin Carboxyhemoglobin Sodium Potassium Chloride Carbon Dioxide BUN Creatinine Glucose POC Glucose 123 H Lactic Acid Calcium Phosphorus Magnesium Ferritin Direct Bilirubin AST ALT Alkaline Phosphatase Lactate Dehydrogenase Total Creatine Kinase C-Reactive Protein Total Protein Albumin Triglycerides Arterial Blood Glucose 136 H Arterial Blood Ionized Calcium 4.1 L Urine Creatinine Urine Chloride Vancomycin Trough Coronavirus (PCR) Crossmatch 06/27/20 06/27/20 06/27/20 05:26 10:14 11:58 WBC RBC Hgb Hct MCHC RDW Plt Count Lymph % (Auto) [place] % (Auto) Lymph # (Auto) [place] # (Auto) Eos # (Auto) Baso # (Auto) Seg Neutrophils % Seg Neuts % (Manual) Lymphocytes % (Manual) Monocytes % (Manual) Basophils % (Manual) Nucleated RBC % Seg Neutrophils # Seg Neutrophils # Man Lymphocytes # (Manual) Monocytes # (Manual) Eosinophils # (Manual) Basophils # (Manual) PT INR APTT D-Dimer Heparin Anti-Xa Level ABG pH POC ABG pCO2 POC ABG pO2 ABG pO2 ABG HCO3 ABG O2 Saturation ABG Base Excess ABG Hemoglobin ABG Oxyhemoglobin ABG Sodium ABG Potassium ABG Chloride ABG Glucose Oxyhemoglobin Carboxyhemoglobin Sodium 136 L Potassium 7.0 H* Chloride 97.8 L Carbon Dioxide BUN 172 H Creatinine 7.4 H Glucose 129 H POC Glucose 124 H 115 H Lactic Acid Calcium 7.6 L Phosphorus Magnesium Ferritin Direct Bilirubin AST ALT Alkaline Phosphatase Lactate Dehydrogenase Total Creatine Kinase C-Reactive Protein Total Protein Albumin Triglycerides Arterial Blood Glucose Arterial Blood Ionized Calcium Urine Creatinine Urine Chloride Vancomycin Trough Coronavirus (PCR) Crossmatch 06/27/20 06/27/20 06/27/20 17:32 18:30 23:24 WBC RBC Hgb Hct MCHC RDW Plt Count Lymph % (Auto) [place] % (Auto) Lymph # (Auto) [place] # (Auto) Eos # (Auto) Baso # (Auto) Seg Neutrophils % Seg Neuts % (Manual) Lymphocytes % (Manual) Monocytes % (Manual) Basophils % (Manual) Nucleated RBC % Seg Neutrophils # Seg Neutrophils # Man Lymphocytes # (Manual) Monocytes # (Manual) Eosinophils # (Manual) Basophils # (Manual) PT INR APTT D-Dimer Heparin Anti-Xa Level ABG pH POC ABG pCO2 POC ABG pO2 ABG pO2 ABG HCO3 ABG O2 Saturation ABG Base Excess ABG Hemoglobin ABG Oxyhemoglobin ABG Sodium ABG Potassium ABG Chloride ABG Glucose Oxyhemoglobin Carboxyhemoglobin Sodium Potassium 7.3 H* Chloride Carbon Dioxide BUN Creatinine Glucose POC Glucose 122 H 116 H Lactic Acid Calcium Phosphorus Magnesium Ferritin Direct Bilirubin AST ALT Alkaline Phosphatase Lactate Dehydrogenase Total Creatine Kinase C-Reactive Protein Total Protein Albumin Triglycerides Arterial Blood Glucose Arterial Blood Ionized Calcium Urine Creatinine Urine Chloride Vancomycin Trough Coronavirus (PCR) Crossmatch 06/28/20 06/28/20 06/28/20 00:00 02:16 05:37 WBC RBC Hgb Hct MCHC RDW Plt Count Lymph % (Auto) [place] % (Auto) Lymph # (Auto) [place] # (Auto) Eos # (Auto) Baso # (Auto) Seg Neutrophils % Seg Neuts % (Manual) Lymphocytes % (Manual) Monocytes % (Manual) Basophils % (Manual) Nucleated RBC % Seg Neutrophils # Seg Neutrophils # Man Lymphocytes # (Manual) Monocytes # (Manual) Eosinophils # (Manual) Basophils # (Manual) PT INR APTT D-Dimer Heparin Anti-Xa Level ABG pH POC ABG pCO2 POC ABG pO2 79.0 L ABG pO2 ABG HCO3 ABG O2 Saturation ABG Base Excess ABG Hemoglobin 11.7 L ABG Oxyhemoglobin ABG Sodium 128.1 L ABG Potassium 6.6 H ABG Chloride ABG Glucose 124 H Oxyhemoglobin Carboxyhemoglobin Sodium Potassium 7.3 H* Chloride Carbon Dioxide BUN Creatinine Glucose POC Glucose 115 H Lactic Acid Calcium Phosphorus Magnesium Ferritin Direct Bilirubin AST ALT Alkaline Phosphatase Lactate Dehydrogenase Total Creatine Kinase C-Reactive Protein Total Protein Albumin Triglycerides Arterial Blood Glucose 124 H Arterial Blood Ionized Calcium 4.2 L Urine Creatinine Urine Chloride Vancomycin Trough Coronavirus (PCR) Crossmatch 06/28/20 06/28/20 06/28/20 10:03 10:03 11:51 WBC 33.6 H RBC 3.03 L Hgb 8.9 L Hct 27.0 L MCHC RDW Plt Count Lymph % (Auto) [place] % (Auto) Lymph # (Auto) [place] # (Auto) Eos # (Auto) Baso # (Auto) Seg Neutrophils % Seg Neuts % (Manual) Lymphocytes % (Manual) Monocytes % (Manual) Basophils % (Manual) Nucleated RBC % Seg Neutrophils # Seg Neutrophils # Man Lymphocytes # (Manual) Monocytes # (Manual) Eosinophils # (Manual) Basophils # (Manual) PT INR APTT D-Dimer Heparin Anti-Xa Level ABG pH POC ABG pCO2 POC ABG pO2 ABG pO2 ABG HCO3 ABG O2 Saturation ABG Base Excess ABG Hemoglobin ABG Oxyhemoglobin ABG Sodium ABG Potassium ABG Chloride ABG Glucose Oxyhemoglobin Carboxyhemoglobin Sodium 136 L Potassium 6.5 H* Chloride Carbon Dioxide 20 L BUN 129 H Creatinine 5.8 H Glucose 113 H POC Glucose 107 H Lactic Acid Calcium 7.6 L Phosphorus Magnesium Ferritin Direct Bilirubin AST ALT Alkaline Phosphatase Lactate Dehydrogenase Total Creatine Kinase C-Reactive Protein Total Protein Albumin Triglycerides Arterial Blood Glucose Arterial Blood Ionized Calcium Urine Creatinine Urine Chloride Vancomycin Trough Coronavirus (PCR) Crossmatch 06/28/20 06/28/20 06/29/20 17:45 Unknown 03:15 WBC RBC Hgb Hct MCHC RDW Plt Count Lymph % (Auto) [place] % (Auto) Lymph # (Auto) [place] # (Auto) Eos # (Auto) Baso # (Auto) Seg Neutrophils % Seg Neuts % (Manual) Lymphocytes % (Manual) Monocytes % (Manual) Basophils % (Manual) Nucleated RBC % Seg Neutrophils # Seg Neutrophils # Man Lymphocytes # (Manual) Monocytes # (Manual) Eosinophils # (Manual) Basophils # (Manual) PT INR APTT D-Dimer Heparin Anti-Xa Level ABG pH POC ABG pCO2 POC ABG pO2 ABG pO2 ABG HCO3 ABG O2 Saturation ABG Base Excess ABG Hemoglobin 7.8 L ABG Oxyhemoglobin ABG Sodium 127.4 L ABG Potassium 5.5 H ABG Chloride 97.0 L ABG Glucose 96 H Oxyhemoglobin Carboxyhemoglobin Sodium Potassium 5.4 H Chloride Carbon Dioxide BUN Creatinine Glucose POC Glucose 117 H Lactic Acid Calcium Phosphorus Magnesium Ferritin Direct Bilirubin AST ALT Alkaline Phosphatase Lactate Dehydrogenase Total Creatine Kinase C-Reactive Protein Total Protein Albumin Triglycerides Arterial Blood Glucose 96 H Arterial Blood Ionized Calcium 4.0 L Urine Creatinine Urine Chloride Vancomycin Trough Coronavirus (PCR) Crossmatch 06/29/20 06/29/20 06/29/20 03:45 Unknown Unknown WBC RBC Hgb Hct MCHC RDW Plt Count Lymph % (Auto) [place] % (Auto) Lymph # (Auto) [place] # (Auto) Eos # (Auto) Baso # (Auto) Seg Neutrophils % Seg Neuts % (Manual) Lymphocytes % (Manual) Monocytes % (Manual) Basophils % (Manual) Nucleated RBC % Seg Neutrophils # Seg Neutrophils # Man Lymphocytes # (Manual) Monocytes # (Manual) Eosinophils # (Manual) Basophils # (Manual) PT INR APTT D-Dimer Heparin Anti-Xa Level ABG pH POC ABG pCO2 POC ABG pO2 ABG pO2 ABG HCO3 ABG O2 Saturation ABG Base Excess ABG Hemoglobin ABG Oxyhemoglobin ABG Sodium ABG Potassium ABG Chloride ABG Glucose Oxyhemoglobin Carboxyhemoglobin Sodium 135 L Potassium 6.0 H 6.1 H* Chloride 94.8 L Carbon Dioxide BUN 109 H 114 H Creatinine 5.5 H Glucose POC Glucose Lactic Acid Calcium 7.4 L Phosphorus Magnesium Ferritin Direct Bilirubin AST 47 H ALT Alkaline Phosphatase Lactate Dehydrogenase Total Creatine Kinase C-Reactive Protein Total Protein 4.9 L Albumin 2.2 L Triglycerides Arterial Blood Glucose Arterial Blood Ionized Calcium Urine Creatinine Urine Chloride Vancomycin Trough Coronavirus (PCR) Crossmatch 06/29/20 06/29/20 06/30/20 Unknown Unknown 03:32 WBC 20.7 H RBC 2.57 L Hgb 7.6 L Hct 23.0 L MCHC RDW Plt Count Lymph % (Auto) [place] % (Auto) Lymph # (Auto) [place] # (Auto) Eos # (Auto) Baso # (Auto) Seg Neutrophils % Seg Neuts % (Manual) Lymphocytes % (Manual) Monocytes % (Manual) Basophils % (Manual) Nucleated RBC % Seg Neutrophils # Seg Neutrophils # Man Lymphocytes # (Manual) Monocytes # (Manual) Eosinophils # (Manual) Basophils # (Manual) PT INR APTT D-Dimer Heparin Anti-Xa Level ABG pH POC ABG pCO2 POC ABG pO2 ABG pO2 ABG HCO3 ABG O2 Saturation ABG Base Excess ABG Hemoglobin 11.4 L ABG Oxyhemoglobin ABG Sodium 130.1 L ABG Potassium 5.0 H ABG Chloride ABG Glucose Oxyhemoglobin Carboxyhemoglobin Sodium Potassium Chloride Carbon Dioxide BUN Creatinine Glucose POC Glucose Lactic Acid Calcium Phosphorus Magnesium Ferritin Direct Bilirubin AST ALT Alkaline Phosphatase Lactate Dehydrogenase Total Creatine Kinase 618 H C-Reactive Protein Total Protein Albumin Triglycerides Arterial Blood Glucose Arterial Blood Ionized Calcium 3.9 L Urine Creatinine Urine Chloride Vancomycin Trough Coronavirus (PCR) Crossmatch 06/30/20 06/30/20 06/30/20 03:50 03:50 11:39 WBC 13.1 H RBC Hgb Hct MCHC RDW Plt Count Lymph % (Auto) [place] % (Auto) Lymph # (Auto) [place] # (Auto) Eos # (Auto) Baso # (Auto) Seg Neutrophils % Seg Neuts % (Manual) 95.0 H Lymphocytes % (Manual) 3.0 L Monocytes % (Manual) Basophils % (Manual) Nucleated RBC % Seg Neutrophils # Seg Neutrophils # Man 12.4 H Lymphocytes # (Manual) 0.4 L Monocytes # (Manual) Eosinophils # (Manual) Basophils # (Manual) PT INR APTT D-Dimer Heparin Anti-Xa Level ABG pH POC ABG pCO2 POC ABG pO2 ABG pO2 ABG HCO3 ABG O2 Saturation ABG Base Excess ABG Hemoglobin ABG Oxyhemoglobin ABG Sodium ABG Potassium ABG Chloride ABG Glucose Oxyhemoglobin Carboxyhemoglobin Sodium 135 L Potassium 5.4 H D Chloride 93.6 L Carbon Dioxide BUN 85 H Creatinine 4.6 H Glucose POC Glucose 111 H Lactic Acid Calcium 7.1 L Phosphorus 9.40 H Magnesium Ferritin Direct Bilirubin AST ALT Alkaline Phosphatase Lactate Dehydrogenase Total Creatine Kinase C-Reactive Protein Total Protein Albumin Triglycerides Arterial Blood Glucose Arterial Blood Ionized Calcium Urine Creatinine Urine Chloride Vancomycin Trough Coronavirus (PCR) Crossmatch 06/30/20 06/30/20 07/01/20 13:12 Unknown 03:19 WBC RBC Hgb 7.8 L D Hct 23.2 L D MCHC RDW Plt Count Lymph % (Auto) [place] % (Auto) Lymph # (Auto) [place] # (Auto) Eos # (Auto) Baso # (Auto) Seg Neutrophils % Seg Neuts % (Manual) Lymphocytes % (Manual) Monocytes % (Manual) Basophils % (Manual) Nucleated RBC % Seg Neutrophils # Seg Neutrophils # Man Lymphocytes # (Manual) Monocytes # (Manual) Eosinophils # (Manual) Basophils # (Manual) PT INR APTT D-Dimer Heparin Anti-Xa Level ABG pH 7.461 H POC ABG pCO2 POC ABG pO2 77.2 L ABG pO2 ABG HCO3 ABG O2 Saturation ABG Base Excess ABG Hemoglobin 6.9 L ABG Oxyhemoglobin ABG Sodium 128.5 L ABG Potassium ABG Chloride 97.0 L ABG Glucose Oxyhemoglobin Carboxyhemoglobin Sodium Potassium Chloride Carbon Dioxide BUN Creatinine Glucose POC Glucose Lactic Acid Calcium Phosphorus Magnesium Ferritin Direct Bilirubin AST ALT Alkaline Phosphatase Lactate Dehydrogenase Total Creatine Kinase C-Reactive Protein Total Protein Albumin Triglycerides Arterial Blood Glucose Arterial Blood Ionized Calcium 3.7 L Urine Creatinine Urine Chloride Vancomycin Trough Coronavirus (PCR) Positive A Crossmatch 07/01/20 07/01/20 07/01/20 06:00 06:00 11:04 WBC 16.7 H RBC 2.16 L Hgb 6.4 L Hct 19.2 L* MCHC RDW Plt Count Lymph % (Auto) [place] % (Auto) Lymph # (Auto) [place] # (Auto) Eos # (Auto) Baso # (Auto) Seg Neutrophils % Seg Neuts % (Manual) Lymphocytes % (Manual) Monocytes % (Manual) Basophils % (Manual) Nucleated RBC % Seg Neutrophils # Seg Neutrophils # Man Lymphocytes # (Manual) Monocytes # (Manual) Eosinophils # (Manual) Basophils # (Manual) PT INR APTT D-Dimer Heparin Anti-Xa Level ABG pH POC ABG pCO2 POC ABG pO2 ABG pO2 ABG HCO3 ABG O2 Saturation ABG Base Excess ABG Hemoglobin ABG Oxyhemoglobin ABG Sodium ABG Potassium ABG Chloride ABG Glucose Oxyhemoglobin Carboxyhemoglobin Sodium 136 L Potassium Chloride 95.8 L Carbon Dioxide BUN 72 H Creatinine 4.3 H Glucose POC Glucose Lactic Acid Calcium 6.7 L Phosphorus Magnesium Ferritin Direct Bilirubin AST ALT Alkaline Phosphatase Lactate Dehydrogenase Total Creatine Kinase C-Reactive Protein Total Protein Albumin Triglycerides 250 H Arterial Blood Glucose Arterial Blood Ionized Calcium Urine Creatinine Urine Chloride Vancomycin Trough Coronavirus (PCR) Crossmatch See Detail 07/02/20 07/02/20 07/02/20 04:44 06:00 11:33 WBC 14.6 H RBC 2.47 L Hgb 7.4 L Hct 21.8 L MCHC RDW Plt Count Lymph % (Auto) [place] % (Auto) Lymph # (Auto) [place] # (Auto) Eos # (Auto) Baso # (Auto) Seg Neutrophils % Seg Neuts % (Manual) Lymphocytes % (Manual) Monocytes % (Manual) Basophils % (Manual) Nucleated RBC % Seg Neutrophils # Seg Neutrophils # Man Lymphocytes # (Manual) Monocytes # (Manual) Eosinophils # (Manual) Basophils # (Manual) PT INR APTT D-Dimer Heparin Anti-Xa Level ABG pH 7.457 H POC ABG pCO2 POC ABG pO2 79.4 L ABG pO2 ABG HCO3 ABG O2 Saturation ABG Base Excess ABG Hemoglobin 8.5 L ABG Oxyhemoglobin ABG Sodium 128.4 L ABG Potassium ABG Chloride 97.0 L ABG Glucose 100 H Oxyhemoglobin Carboxyhemoglobin Sodium 133 L Potassium 5.2 H Chloride 93.3 L Carbon Dioxide BUN 66 H Creatinine 4.1 H Glucose 102 H POC Glucose Lactic Acid Calcium 7.2 L Phosphorus Magnesium Ferritin Direct Bilirubin AST ALT Alkaline Phosphatase Lactate Dehydrogenase Total Creatine Kinase C-Reactive Protein Total Protein Albumin Triglycerides Arterial Blood Glucose 100 H Arterial Blood Ionized Calcium 3.9 L Urine Creatinine Urine Chloride Vancomycin Trough Coronavirus (PCR) Crossmatch 07/02/20 07/03/20 07/03/20 11:33 03:54 09:15 WBC 16.6 H RBC 2.44 L Hgb 7.3 L Hct 21.4 L MCHC RDW Plt Count Lymph % (Auto) [place] % (Auto) Lymph # (Auto) [place] # (Auto) Eos # (Auto) Baso # (Auto) Seg Neutrophils % Seg Neuts % (Manual) Lymphocytes % (Manual) Monocytes % (Manual) Basophils % (Manual) Nucleated RBC % Seg Neutrophils # Seg Neutrophils # Man Lymphocytes # (Manual) Monocytes # (Manual) Eosinophils # (Manual) Basophils # (Manual) PT INR APTT D-Dimer Heparin Anti-Xa Level ABG pH POC ABG pCO2 POC ABG pO2 66.1 L ABG pO2 ABG HCO3 ABG O2 Saturation ABG Base Excess ABG Hemoglobin 8.0 L ABG Oxyhemoglobin ABG Sodium 124.6 L ABG Potassium 5.5 H ABG Chloride 96.0 L ABG Glucose 111 H Oxyhemoglobin Carboxyhemoglobin Sodium Potassium Chloride Carbon Dioxide BUN Creatinine Glucose POC Glucose Lactic Acid Calcium Phosphorus Magnesium Ferritin Direct Bilirubin 0.7 H AST 94 H ALT 60 H Alkaline Phosphatase Lactate Dehydrogenase Total Creatine Kinase C-Reactive Protein Total Protein 4.4 L Albumin 1.9 L Triglycerides Arterial Blood Glucose 111 H Arterial Blood Ionized Calcium 3.8 L Urine Creatinine Urine Chloride Vancomycin Trough Coronavirus (PCR) Crossmatch 07/03/20 07/03/20 07/03/20 09:15 10:10 14:50 WBC RBC Hgb Hct MCHC RDW Plt Count Lymph % (Auto) [place] % (Auto) Lymph # (Auto) [place] # (Auto) Eos # (Auto) Baso # (Auto) Seg Neutrophils % Seg Neuts % (Manual) Lymphocytes % (Manual) Monocytes % (Manual) Basophils % (Manual) Nucleated RBC % Seg Neutrophils # Seg Neutrophils # Man Lymphocytes # (Manual) Monocytes # (Manual) Eosinophils # (Manual) Basophils # (Manual) PT INR APTT D-Dimer 6608.00 H Heparin Anti-Xa Level ABG pH POC ABG pCO2 POC ABG pO2 ABG pO2 ABG HCO3 ABG O2 Saturation ABG Base Excess ABG Hemoglobin ABG Oxyhemoglobin ABG Sodium ABG Potassium ABG Chloride ABG Glucose Oxyhemoglobin Carboxyhemoglobin Sodium 133 L Potassium 6.2 H* Chloride 93.1 L Carbon Dioxide BUN 89 H Creatinine 5.1 H Glucose POC Glucose Lactic Acid Calcium 7.0 L Phosphorus Magnesium Ferritin Direct Bilirubin AST ALT Alkaline Phosphatase Lactate Dehydrogenase Total Creatine Kinase C-Reactive Protein Total Protein Albumin Triglycerides Arterial Blood Glucose Arterial Blood Ionized Calcium Urine Creatinine Urine Chloride Vancomycin Trough Coronavirus (PCR) Positive A Crossmatch 07/03/20 07/03/20 07/03/20 14:50 14:50 14:50 WBC RBC Hgb Hct MCHC RDW Plt Count Lymph % (Auto) [place] % (Auto) Lymph # (Auto) [place] # (Auto) Eos # (Auto) Baso # (Auto) Seg Neutrophils % Seg Neuts % (Manual) Lymphocytes % (Manual) Monocytes % (Manual) Basophils % (Manual) Nucleated RBC % Seg Neutrophils # Seg Neutrophils # Man Lymphocytes # (Manual) Monocytes # (Manual) Eosinophils # (Manual) Basophils # (Manual) PT INR APTT D-Dimer Heparin Anti-Xa Level ABG pH POC ABG pCO2 POC ABG pO2 ABG pO2 ABG HCO3 ABG O2 Saturation ABG Base Excess ABG Hemoglobin ABG Oxyhemoglobin ABG Sodium ABG Potassium ABG Chloride ABG Glucose Oxyhemoglobin Carboxyhemoglobin Sodium Potassium Chloride Carbon Dioxide BUN Creatinine Glucose POC Glucose Lactic Acid < 0.20 L Calcium Phosphorus Magnesium Ferritin 1171.0 H Direct Bilirubin AST ALT Alkaline Phosphatase Lactate Dehydrogenase 525 H Total Creatine Kinase C-Reactive Protein 31.50 H Total Protein Albumin Triglycerides Arterial Blood Glucose Arterial Blood Ionized Calcium Urine Creatinine Urine Chloride Vancomycin Trough Coronavirus (PCR) Crossmatch 07/03/20 07/04/20 07/04/20 16:47 05:20 05:20 WBC 11.8 H RBC 2.32 L Hgb 6.7 L Hct 20.8 L MCHC RDW Plt Count Lymph % (Auto) 2.6 L [place] % (Auto) Lymph # (Auto) 0.3 L [place] # (Auto) Eos # (Auto) Baso # (Auto) Seg Neutrophils % Seg Neuts % (Manual) Lymphocytes % (Manual) Monocytes % (Manual) Basophils % (Manual) Nucleated RBC % Seg Neutrophils # 11.0 H Seg Neutrophils # Man Lymphocytes # (Manual) Monocytes # (Manual) Eosinophils # (Manual) Basophils # (Manual) PT INR APTT D-Dimer Heparin Anti-Xa Level ABG pH POC ABG pCO2 POC ABG pO2 ABG pO2 ABG HCO3 ABG O2 Saturation ABG Base Excess ABG Hemoglobin ABG Oxyhemoglobin ABG Sodium ABG Potassium ABG Chloride ABG Glucose Oxyhemoglobin Carboxyhemoglobin Sodium Potassium 6.0 H Chloride 97.8 L Carbon Dioxide BUN 75 H Creatinine 4.5 H Glucose 121 H POC Glucose 107 H Lactic Acid Calcium 7.9 L Phosphorus Magnesium Ferritin Direct Bilirubin AST ALT Alkaline Phosphatase Lactate Dehydrogenase Total Creatine Kinase C-Reactive Protein Total Protein Albumin Triglycerides Arterial Blood Glucose Arterial Blood Ionized Calcium Urine Creatinine Urine Chloride Vancomycin Trough Coronavirus (PCR) Crossmatch 07/04/20 07/04/20 07/04/20 05:20 05:50 09:25 WBC RBC Hgb Hct MCHC RDW Plt Count Lymph % (Auto) [place] % (Auto) Lymph # (Auto) [place] # (Auto) Eos # (Auto) Baso # (Auto) Seg Neutrophils % Seg Neuts % (Manual) Lymphocytes % (Manual) Monocytes % (Manual) Basophils % (Manual) Nucleated RBC % Seg Neutrophils # Seg Neutrophils # Man Lymphocytes # (Manual) Monocytes # (Manual) Eosinophils # (Manual) Basophils # (Manual) PT INR APTT D-Dimer Heparin Anti-Xa Level ABG pH 7.324 L POC ABG pCO2 POC ABG pO2 ABG pO2 98.9 H ABG HCO3 26.8 H ABG O2 Saturation ABG Base Excess ABG Hemoglobin < 5.1 L ABG Oxyhemoglobin ABG Sodium ABG Potassium ABG Chloride ABG Glucose Oxyhemoglobin Carboxyhemoglobin Sodium Potassium Chloride Carbon Dioxide BUN Creatinine Glucose POC Glucose 114 H Lactic Acid Calcium Phosphorus Magnesium Ferritin Direct Bilirubin AST ALT Alkaline Phosphatase Lactate Dehydrogenase Total Creatine Kinase C-Reactive Protein Total Protein Albumin Triglycerides Arterial Blood Glucose Arterial Blood Ionized Calcium Urine Creatinine Urine Chloride Vancomycin Trough Coronavirus (PCR) Crossmatch See Detail 0207/04/20 07/04/20 12:33 17:41 23:04 WBC RBC Hgb Hct MCHC RDW Plt Count Lymph % (Auto) [place] % (Auto) Lymph # (Auto) [place] # (Auto) Eos # (Auto) Baso # (Auto) Seg Neutrophils % Seg Neuts % (Manual) Lymphocytes % (Manual) Monocytes % (Manual) Basophils % (Manual) Nucleated RBC % Seg Neutrophils # Seg Neutrophils # Man Lymphocytes # (Manual) Monocytes # (Manual) Eosinophils # (Manual) Basophils # (Manual) PT INR APTT D-Dimer Heparin Anti-Xa Level ABG pH POC ABG pCO2 POC ABG pO2 ABG pO2 ABG HCO3 ABG O2 Saturation ABG Base Excess ABG Hemoglobin ABG Oxyhemoglobin ABG Sodium ABG Potassium ABG Chloride ABG Glucose Oxyhemoglobin Carboxyhemoglobin Sodium Potassium Chloride Carbon Dioxide BUN Creatinine Glucose POC Glucose 119 H 109 H 116 H Lactic Acid Calcium Phosphorus Magnesium Ferritin Direct Bilirubin AST ALT Alkaline Phosphatase Lactate Dehydrogenase Total Creatine Kinase C-Reactive Protein Total Protein Albumin Triglycerides Arterial Blood Glucose Arterial Blood Ionized Calcium Urine Creatinine Urine Chloride Vancomycin Trough Coronavirus (PCR) Crossmatch 07/05/20 07/05/20 07/05/20 04:30 08:21 08:21 WBC RBC 2.77 L Hgb 7.9 L Hct 23.9 L MCHC RDW 16.7 H Plt Count Lymph % (Auto) 7.5 L [place] % (Auto) Lymph # (Auto) 0.7 L [place] # (Auto) Eos # (Auto) Baso # (Auto) Seg Neutrophils % 85.8 H Seg Neuts % (Manual) Lymphocytes % (Manual) Monocytes % (Manual) Basophils % (Manual) Nucleated RBC % Seg Neutrophils # 7.8 H Seg Neutrophils # Man Lymphocytes # (Manual) Monocytes # (Manual) Eosinophils # (Manual) Basophils # (Manual) PT INR APTT D-Dimer Heparin Anti-Xa Level ABG pH 7.295 L POC ABG pCO2 POC ABG pO2 ABG pO2 151.9 H ABG HCO3 26.8 H ABG O2 Saturation ABG Base Excess ABG Hemoglobin 7.3 L ABG Oxyhemoglobin ABG Sodium ABG Potassium ABG Chloride ABG Glucose Oxyhemoglobin Carboxyhemoglobin Sodium Potassium Chloride Carbon Dioxide BUN Creatinine Glucose POC Glucose Lactic Acid Calcium Phosphorus Magnesium Ferritin Direct Bilirubin AST ALT Alkaline Phosphatase Lactate Dehydrogenase Total Creatine Kinase C-Reactive Protein Total Protein Albumin Triglycerides 258 H Arterial Blood Glucose Arterial Blood Ionized Calcium Urine Creatinine Urine Chloride Vancomycin Trough Coronavirus (PCR) Crossmatch 07/05/20 07/05/20 07/06/20 08:21 12:12 04:29 WBC RBC Hgb Hct MCHC RDW Plt Count Lymph % (Auto) [place] % (Auto) Lymph # (Auto) [place] # (Auto) Eos # (Auto) Baso # (Auto) Seg Neutrophils % Seg Neuts % (Manual) Lymphocytes % (Manual) Monocytes % (Manual) Basophils % (Manual) Nucleated RBC % Seg Neutrophils # Seg Neutrophils # Man Lymphocytes # (Manual) Monocytes # (Manual) Eosinophils # (Manual) Basophils # (Manual) PT INR APTT D-Dimer Heparin Anti-Xa Level ABG pH 7.291 L POC ABG pCO2 51.3 H POC ABG pO2 ABG pO2 ABG HCO3 ABG O2 Saturation ABG Base Excess ABG Hemoglobin 8.5 L ABG Oxyhemoglobin ABG Sodium 129.6 L ABG Potassium 4.8 H ABG Chloride 96.0 L ABG Glucose Oxyhemoglobin Carboxyhemoglobin Sodium 133 L Potassium 5.6 H Chloride 94.4 L Carbon Dioxide BUN 80 H Creatinine 4.2 H Glucose 114 H POC Glucose 106 H Lactic Acid Calcium 7.6 L Phosphorus Magnesium Ferritin Direct Bilirubin 0.5 H AST 75 H ALT 86 H Alkaline Phosphatase Lactate Dehydrogenase Total Creatine Kinase C-Reactive Protein Total Protein 5.6 L D Albumin 1.9 L Triglycerides Arterial Blood Glucose Arterial Blood Ionized Calcium 4.2 L Urine Creatinine Urine Chloride Vancomycin Trough Coronavirus (PCR) Crossmatch 07/06/20 07/06/20 07/06/20 11:35 11:35 12:16 WBC RBC 2.54 L Hgb 7.5 L Hct 21.5 L MCHC 35 H RDW 15.7 H Plt Count Lymph % (Auto) [place] % (Auto) Lymph # (Auto) [place] # (Auto) Eos # (Auto) Baso # (Auto) Seg Neutrophils % Seg Neuts % (Manual) Lymphocytes % (Manual) Monocytes % (Manual) Basophils % (Manual) Nucleated RBC % Seg Neutrophils # Seg Neutrophils # Man Lymphocytes # (Manual) Monocytes # (Manual) Eosinophils # (Manual) Basophils # (Manual) PT INR APTT D-Dimer Heparin Anti-Xa Level ABG pH POC ABG pCO2 POC ABG pO2 ABG pO2 ABG HCO3 ABG O2 Saturation ABG Base Excess ABG Hemoglobin ABG Oxyhemoglobin ABG Sodium ABG Potassium ABG Chloride ABG Glucose Oxyhemoglobin Carboxyhemoglobin Sodium 130 L Potassium Chloride 92.2 L Carbon Dioxide 19 L D BUN 107 H Creatinine 5.1 H Glucose 106 H POC Glucose 106 H Lactic Acid Calcium 7.5 L Phosphorus Magnesium Ferritin Direct Bilirubin AST ALT Alkaline Phosphatase Lactate Dehydrogenase Total Creatine Kinase C-Reactive Protein Total Protein Albumin Triglycerides Arterial Blood Glucose Arterial Blood Ionized Calcium Urine Creatinine Urine Chloride Vancomycin Trough Coronavirus (PCR) Crossmatch 07/06/20 07/06/20 07/06/20 17:01 21:56 23:41 WBC RBC Hgb Hct MCHC RDW Plt Count Lymph % (Auto) [place] % (Auto) Lymph # (Auto) [place] # (Auto) Eos # (Auto) Baso # (Auto) Seg Neutrophils % Seg Neuts % (Manual) Lymphocytes % (Manual) Monocytes % (Manual) Basophils % (Manual) Nucleated RBC % Seg Neutrophils # Seg Neutrophils # Man Lymphocytes # (Manual) Monocytes # (Manual) Eosinophils # (Manual) Basophils # (Manual) PT INR APTT D-Dimer Heparin Anti-Xa Level ABG pH POC ABG pCO2 POC ABG pO2 ABG pO2 ABG HCO3 ABG O2 Saturation ABG Base Excess ABG Hemoglobin ABG Oxyhemoglobin ABG Sodium ABG Potassium ABG Chloride ABG Glucose Oxyhemoglobin Carboxyhemoglobin Sodium 135 L Potassium 5.1 H Chloride Carbon Dioxide BUN 73 H Creatinine 4.0 H Glucose 112 H POC Glucose 109 H 111 H Lactic Acid Calcium 7.8 L Phosphorus Magnesium Ferritin Direct Bilirubin AST ALT Alkaline Phosphatase Lactate Dehydrogenase Total Creatine Kinase C-Reactive Protein Total Protein Albumin Triglycerides Arterial Blood Glucose Arterial Blood Ionized Calcium Urine Creatinine Urine Chloride Vancomycin Trough Coronavirus (PCR) Crossmatch 07/07/20 07/07/20 07/07/20 04:18 05:04 05:29 WBC RBC 2.46 L Hgb 7.6 L Hct 21.5 L MCHC 35 H RDW 16.5 H Plt Count Lymph % (Auto) [place] % (Auto) Lymph # (Auto) [place] # (Auto) Eos # (Auto) Baso # (Auto) Seg Neutrophils % Seg Neuts % (Manual) 82.0 H Lymphocytes % (Manual) Monocytes % (Manual) Basophils % (Manual) Nucleated RBC % 1.0 H Seg Neutrophils # Seg Neutrophils # Man Lymphocytes # (Manual) 1.1 L Monocytes # (Manual) Eosinophils # (Manual) Basophils # (Manual) PT INR APTT D-Dimer Heparin Anti-Xa Level ABG pH POC ABG pCO2 POC ABG pO2 79.6 L ABG pO2 ABG HCO3 ABG O2 Saturation ABG Base Excess ABG Hemoglobin 8.2 L ABG Oxyhemoglobin ABG Sodium 133.3 L ABG Potassium 4.7 H ABG Chloride ABG Glucose 135 H Oxyhemoglobin Carboxyhemoglobin Sodium Potassium Chloride Carbon Dioxide BUN Creatinine Glucose POC Glucose 112 H Lactic Acid Calcium Phosphorus Magnesium Ferritin Direct Bilirubin AST ALT Alkaline Phosphatase Lactate Dehydrogenase Total Creatine Kinase C-Reactive Protein Total Protein Albumin Triglycerides Arterial Blood Glucose 135 H Arterial Blood Ionized Calcium 4.5 L Urine Creatinine Urine Chloride Vancomycin Trough Coronavirus (PCR) Crossmatch 07/07/20 07/07/20 07/07/20 10:17 12:18 17:43 WBC RBC Hgb Hct MCHC RDW Plt Count Lymph % (Auto) [place] % (Auto) Lymph # (Auto) [place] # (Auto) Eos # (Auto) Baso # (Auto) Seg Neutrophils % Seg Neuts % (Manual) Lymphocytes % (Manual) Monocytes % (Manual) Basophils % (Manual) Nucleated RBC % Seg Neutrophils # Seg Neutrophils # Man Lymphocytes # (Manual) Monocytes # (Manual) Eosinophils # (Manual) Basophils # (Manual) PT INR APTT D-Dimer Heparin Anti-Xa Level ABG pH POC ABG pCO2 POC ABG pO2 ABG pO2 ABG HCO3 ABG O2 Saturation ABG Base Excess ABG Hemoglobin ABG Oxyhemoglobin ABG Sodium ABG Potassium ABG Chloride ABG Glucose Oxyhemoglobin Carboxyhemoglobin Sodium 136 L Potassium Chloride 96.8 L Carbon Dioxide BUN 82 H Creatinine 4.3 H Glucose 129 H POC Glucose 108 H 116 H Lactic Acid Calcium 7.8 L Phosphorus Magnesium Ferritin Direct Bilirubin AST ALT Alkaline Phosphatase Lactate Dehydrogenase Total Creatine Kinase C-Reactive Protein Total Protein Albumin Triglycerides Arterial Blood Glucose Arterial Blood Ionized Calcium Urine Creatinine Urine Chloride Vancomycin Trough Coronavirus (PCR) Crossmatch 07/07/20 07/08/20 07/08/20 23:31 04:00 04:00 WBC RBC 2.52 L Hgb 7.3 L Hct 22.2 L MCHC RDW 16.6 H Plt Count Lymph % (Auto) 11.5 L [place] % (Auto) Lymph # (Auto) [place] # (Auto) Eos # (Auto) Baso # (Auto) Seg Neutrophils % 78.2 H Seg Neuts % (Manual) Lymphocytes % (Manual) Monocytes % (Manual) Basophils % (Manual) Nucleated RBC % Seg Neutrophils # 8.0 H Seg Neutrophils # Man Lymphocytes # (Manual) Monocytes # (Manual) Eosinophils # (Manual) Basophils # (Manual) PT INR APTT D-Dimer Heparin Anti-Xa Level ABG pH POC ABG pCO2 POC ABG pO2 ABG pO2 ABG HCO3 ABG O2 Saturation ABG Base Excess ABG Hemoglobin ABG Oxyhemoglobin ABG Sodium ABG Potassium ABG Chloride ABG Glucose Oxyhemoglobin Carboxyhemoglobin Sodium 132 L Potassium 5.4 H Chloride 92.5 L Carbon Dioxide BUN 98 H Creatinine 4.9 H Glucose 105 H POC Glucose 117 H Lactic Acid Calcium 7.9 L Phosphorus Magnesium Ferritin Direct Bilirubin AST ALT Alkaline Phosphatase Lactate Dehydrogenase Total Creatine Kinase C-Reactive Protein Total Protein Albumin Triglycerides Arterial Blood Glucose Arterial Blood Ionized Calcium Urine Creatinine Urine Chloride Vancomycin Trough Coronavirus (PCR) Crossmatch 07/08/20 07/08/20 07/08/20 04:09 11:34 17:05 WBC RBC Hgb Hct MCHC RDW Plt Count Lymph % (Auto) [place] % (Auto) Lymph # (Auto) [place] # (Auto) Eos # (Auto) Baso # (Auto) Seg Neutrophils % Seg Neuts % (Manual) Lymphocytes % (Manual) Monocytes % (Manual) Basophils % (Manual) Nucleated RBC % Seg Neutrophils # Seg Neutrophils # Man Lymphocytes # (Manual) Monocytes # (Manual) Eosinophils # (Manual) Basophils # (Manual) PT INR APTT D-Dimer Heparin Anti-Xa Level ABG pH 7.220 L POC ABG pCO2 60.5 H POC ABG pO2 ABG pO2 ABG HCO3 ABG O2 Saturation ABG Base Excess ABG Hemoglobin 8.2 L ABG Oxyhemoglobin ABG Sodium 131.3 L ABG Potassium 5.2 H ABG Chloride ABG Glucose 103 H Oxyhemoglobin Carboxyhemoglobin Sodium Potassium Chloride Carbon Dioxide BUN Creatinine Glucose POC Glucose 140 H 125 H Lactic Acid Calcium Phosphorus Magnesium Ferritin Direct Bilirubin AST ALT Alkaline Phosphatase Lactate Dehydrogenase Total Creatine Kinase C-Reactive Protein Total Protein Albumin Triglycerides Arterial Blood Glucose 103 H Arterial Blood Ionized Calcium 4.3 L Urine Creatinine Urine Chloride Vancomycin Trough Coronavirus (PCR) Crossmatch 07/08/20 07/08/20 07/09/20 20:21 23:43 05:10 WBC RBC Hgb Hct MCHC RDW Plt Count Lymph % (Auto) [place] % (Auto) Lymph # (Auto) [place] # (Auto) Eos # (Auto) Baso # (Auto) Seg Neutrophils % Seg Neuts % (Manual) Lymphocytes % (Manual) Monocytes % (Manual) Basophils % (Manual) Nucleated RBC % Seg Neutrophils # Seg Neutrophils # Man Lymphocytes # (Manual) Monocytes # (Manual) Eosinophils # (Manual) Basophils # (Manual) PT INR APTT D-Dimer Heparin Anti-Xa Level ABG pH 7.20 L POC ABG pCO2 69.8 H POC ABG pO2 138.9 H 76.1 L ABG pO2 ABG HCO3 ABG O2 Saturation ABG Base Excess ABG Hemoglobin 11.9 L 8.4 L ABG Oxyhemoglobin ABG Sodium 133.1 L 131.2 L ABG Potassium 5.0 H 4.7 H ABG Chloride ABG Glucose 120 H 102 H Oxyhemoglobin Carboxyhemoglobin Sodium Potassium Chloride Carbon Dioxide BUN Creatinine Glucose POC Glucose 118 H Lactic Acid Calcium Phosphorus Magnesium Ferritin Direct Bilirubin AST ALT Alkaline Phosphatase Lactate Dehydrogenase Total Creatine Kinase C-Reactive Protein Total Protein Albumin Triglycerides Arterial Blood Glucose 120 H 102 H Arterial Blood Ionized Calcium 4.4 L 4.3 L Urine Creatinine Urine Chloride Vancomycin Trough Coronavirus (PCR) Crossmatch 07/09/20 07/09/20 07/09/20 11:51 17:04 21:00 WBC RBC Hgb Hct MCHC RDW Plt Count Lymph % (Auto) [place] % (Auto) Lymph # (Auto) [place] # (Auto) Eos # (Auto) Baso # (Auto) Seg Neutrophils % Seg Neuts % (Manual) Lymphocytes % (Manual) Monocytes % (Manual) Basophils % (Manual) Nucleated RBC % Seg Neutrophils # Seg Neutrophils # Man Lymphocytes # (Manual) Monocytes # (Manual) Eosinophils # (Manual) Basophils # (Manual) PT INR APTT D-Dimer Heparin Anti-Xa Level ABG pH POC ABG pCO2 POC ABG pO2 114.2 H ABG pO2 ABG HCO3 ABG O2 Saturation ABG Base Excess ABG Hemoglobin 7.8 L ABG Oxyhemoglobin ABG Sodium 132.3 L ABG Potassium 4.6 H ABG Chloride ABG Glucose Oxyhemoglobin Carboxyhemoglobin Sodium Potassium Chloride Carbon Dioxide BUN Creatinine Glucose POC Glucose 113 H 111 H Lactic Acid Calcium Phosphorus Magnesium Ferritin Direct Bilirubin AST ALT Alkaline Phosphatase Lactate Dehydrogenase Total Creatine Kinase C-Reactive Protein Total Protein Albumin Triglycerides Arterial Blood Glucose Arterial Blood Ionized Calcium 4.4 L Urine Creatinine Urine Chloride Vancomycin Trough Coronavirus (PCR) Crossmatch 07/10/20 07/10/20 07/10/20 03:49 03:55 03:55 WBC 18.1 H RBC 2.37 L Hgb 6.8 L Hct 20.7 L MCHC RDW 16.9 H Plt Count Lymph % (Auto) [place] % (Auto) Lymph # (Auto) [place] # (Auto) Eos # (Auto) Baso # (Auto) Seg Neutrophils % Seg Neuts % (Manual) 79.0 H Lymphocytes % (Manual) 10.0 L Monocytes % (Manual) Basophils % (Manual) Nucleated RBC % 1.0 H Seg Neutrophils # Seg Neutrophils # Man 14.3 H Lymphocytes # (Manual) Monocytes # (Manual) Eosinophils # (Manual) 0.7 H Basophils # (Manual) PT INR APTT D-Dimer Heparin Anti-Xa Level ABG pH POC ABG pCO2 POC ABG pO2 ABG pO2 ABG HCO3 ABG O2 Saturation ABG Base Excess ABG Hemoglobin 7.7 L ABG Oxyhemoglobin ABG Sodium 130.3 L ABG Potassium 4.6 H ABG Chloride ABG Glucose Oxyhemoglobin Carboxyhemoglobin Sodium 136 L Potassium Chloride 96.0 L Carbon Dioxide BUN 76 H Creatinine 3.6 H Glucose POC Glucose Lactic Acid Calcium 7.4 L Phosphorus Magnesium Ferritin Direct Bilirubin AST ALT Alkaline Phosphatase Lactate Dehydrogenase Total Creatine Kinase C-Reactive Protein Total Protein Albumin Triglycerides Arterial Blood Glucose Arterial Blood Ionized Calcium 4.2 L Urine Creatinine Urine Chloride Vancomycin Trough Coronavirus (PCR) Crossmatch 07/10/20 07/11/20 07/11/20 13:24 04:08 06:52 WBC 26.0 H RBC 2.91 L Hgb 8.2 L Hct 24.8 L MCHC RDW 17.2 H Plt Count Lymph % (Auto) [place] % (Auto) Lymph # (Auto) [place] # (Auto) Eos # (Auto) Baso # (Auto) Seg Neutrophils % Seg Neuts % (Manual) Lymphocytes % (Manual) 1.0 L Monocytes % (Manual) 11.0 H Basophils % (Manual) Nucleated RBC % Seg Neutrophils # Seg Neutrophils # Man 16.9 H Lymphocytes # (Manual) 0.3 L Monocytes # (Manual) 2.9 H Eosinophils # (Manual) 1.0 H Basophils # (Manual) PT INR APTT D-Dimer Heparin Anti-Xa Level ABG pH POC ABG pCO2 POC ABG pO2 ABG pO2 ABG HCO3 ABG O2 Saturation ABG Base Excess ABG Hemoglobin 8.5 L ABG Oxyhemoglobin ABG Sodium 130.6 L ABG Potassium 4.9 H ABG Chloride ABG Glucose 105 H Oxyhemoglobin Carboxyhemoglobin Sodium Potassium Chloride Carbon Dioxide BUN Creatinine Glucose POC Glucose Lactic Acid Calcium Phosphorus Magnesium Ferritin Direct Bilirubin AST ALT Alkaline Phosphatase Lactate Dehydrogenase Total Creatine Kinase C-Reactive Protein Total Protein Albumin Triglycerides Arterial Blood Glucose 105 H Arterial Blood Ionized Calcium 4.1 L Urine Creatinine Urine Chloride Vancomycin Trough Coronavirus (PCR) Crossmatch See Detail 07/11/20 07/11/20 07/11/20 06:52 08:48 11:39 WBC RBC Hgb Hct MCHC RDW Plt Count Lymph % (Auto) [place] % (Auto) Lymph # (Auto) [place] # (Auto) Eos # (Auto) Baso # (Auto) Seg Neutrophils % Seg Neuts % (Manual) Lymphocytes % (Manual) Monocytes % (Manual) Basophils % (Manual) Nucleated RBC % Seg Neutrophils # Seg Neutrophils # Man Lymphocytes # (Manual) Monocytes # (Manual) Eosinophils # (Manual) Basophils # (Manual) PT INR APTT D-Dimer Heparin Anti-Xa Level ABG pH POC ABG pCO2 POC ABG pO2 ABG pO2 ABG HCO3 ABG O2 Saturation ABG Base Excess ABG Hemoglobin ABG Oxyhemoglobin ABG Sodium ABG Potassium ABG Chloride ABG Glucose Oxyhemoglobin Carboxyhemoglobin Sodium 133 L 134 L Potassium 5.3 H Chloride 93.5 L 94.8 L Carbon Dioxide BUN 101 H 99 H Creatinine 4.5 H 4.6 H Glucose 102 H POC Glucose 116 H Lactic Acid Calcium 7.8 L 7.6 L Phosphorus Magnesium Ferritin Direct Bilirubin AST ALT Alkaline Phosphatase Lactate Dehydrogenase Total Creatine Kinase C-Reactive Protein Total Protein Albumin Triglycerides Arterial Blood Glucose Arterial Blood Ionized Calcium Urine Creatinine Urine Chloride Vancomycin Trough Coronavirus (PCR) Crossmatch 07/11/20 07/12/20 07/12/20 17:23 00:04 03:20 WBC RBC Hgb Hct MCHC RDW Plt Count Lymph % (Auto) [place] % (Auto) Lymph # (Auto) [place] # (Auto) Eos # (Auto) Baso # (Auto) Seg Neutrophils % Seg Neuts % (Manual) Lymphocytes % (Manual) Monocytes % (Manual) Basophils % (Manual) Nucleated RBC % Seg Neutrophils # Seg Neutrophils # Man Lymphocytes # (Manual) Monocytes # (Manual) Eosinophils # (Manual) Basophils # (Manual) PT INR APTT D-Dimer Heparin Anti-Xa Level ABG pH POC ABG pCO2 49.1 H POC ABG pO2 130.3 H ABG pO2 ABG HCO3 ABG O2 Saturation ABG Base Excess ABG Hemoglobin 8.7 L ABG Oxyhemoglobin ABG Sodium 135.2 L ABG Potassium 4.7 H ABG Chloride ABG Glucose 128 H Oxyhemoglobin Carboxyhemoglobin Sodium Potassium Chloride Carbon Dioxide BUN Creatinine Glucose POC Glucose 142 H 113 H Lactic Acid Calcium Phosphorus Magnesium Ferritin Direct Bilirubin AST ALT Alkaline Phosphatase Lactate Dehydrogenase Total Creatine Kinase C-Reactive Protein Total Protein Albumin Triglycerides Arterial Blood Glucose 128 H Arterial Blood Ionized Calcium 4.4 L Urine Creatinine Urine Chloride Vancomycin Trough Coronavirus (PCR) Crossmatch 07/12/20 07/12/20 07/12/20 03:40 03:40 04:00 WBC 24.3 H RBC 2.83 L Hgb 8.0 L Hct 24.9 L MCHC RDW 17.7 H Plt Count Lymph % (Auto) 5.6 L [place] % (Auto) 7.4 H Lymph # (Auto) [place] # (Auto) 1.8 H Eos # (Auto) 0.7 H Baso # (Auto) Seg Neutrophils % 83.9 H Seg Neuts % (Manual) Lymphocytes % (Manual) Monocytes % (Manual) Basophils % (Manual) Nucleated RBC % Seg Neutrophils # 20.4 H Seg Neutrophils # Man Lymphocytes # (Manual) Monocytes # (Manual) Eosinophils # (Manual) Basophils # (Manual) PT INR APTT D-Dimer Heparin Anti-Xa Level ABG pH POC ABG pCO2 POC ABG pO2 ABG pO2 ABG HCO3 ABG O2 Saturation ABG Base Excess ABG Hemoglobin ABG Oxyhemoglobin ABG Sodium ABG Potassium ABG Chloride ABG Glucose Oxyhemoglobin Carboxyhemoglobin Sodium 134 L Potassium Chloride 95.5 L Carbon Dioxide BUN 79 H Creatinine 3.7 H Glucose 127 H POC Glucose Lactic Acid Calcium 7.8 L Phosphorus Magnesium Ferritin Direct Bilirubin AST ALT Alkaline Phosphatase Lactate Dehydrogenase Total Creatine Kinase C-Reactive Protein Total Protein Albumin Triglycerides 246 H Arterial Blood Glucose Arterial Blood Ionized Calcium Urine Creatinine Urine Chloride Vancomycin Trough Coronavirus (PCR) Crossmatch 07/12/20 07/12/20 07/12/20 05:48 11:50 17:29 WBC RBC Hgb Hct MCHC RDW Plt Count Lymph % (Auto) [place] % (Auto) Lymph # (Auto) [place] # (Auto) Eos # (Auto) Baso # (Auto) Seg Neutrophils % Seg Neuts % (Manual) Lymphocytes % (Manual) Monocytes % (Manual) Basophils % (Manual) Nucleated RBC % Seg Neutrophils # Seg Neutrophils # Man Lymphocytes # (Manual) Monocytes # (Manual) Eosinophils # (Manual) Basophils # (Manual) PT INR APTT D-Dimer Heparin Anti-Xa Level ABG pH POC ABG pCO2 POC ABG pO2 ABG pO2 ABG HCO3 ABG O2 Saturation ABG Base Excess ABG Hemoglobin ABG Oxyhemoglobin ABG Sodium ABG Potassium ABG Chloride ABG Glucose Oxyhemoglobin Carboxyhemoglobin Sodium Potassium Chloride Carbon Dioxide BUN Creatinine Glucose POC Glucose 136 H 113 H 110 H Lactic Acid Calcium Phosphorus Magnesium Ferritin Direct Bilirubin AST ALT Alkaline Phosphatase Lactate Dehydrogenase Total Creatine Kinase C-Reactive Protein Total Protein Albumin Triglycerides Arterial Blood Glucose Arterial Blood Ionized Calcium Urine Creatinine Urine Chloride Vancomycin Trough Coronavirus (PCR) Crossmatch 07/12/20 07/13/20 07/13/20 23:43 03:11 06:59 WBC RBC Hgb Hct MCHC RDW Plt Count Lymph % (Auto) [place] % (Auto) Lymph # (Auto) [place] # (Auto) Eos # (Auto) Baso # (Auto) Seg Neutrophils % Seg Neuts % (Manual) Lymphocytes % (Manual) Monocytes % (Manual) Basophils % (Manual) Nucleated RBC % Seg Neutrophils # Seg Neutrophils # Man Lymphocytes # (Manual) Monocytes # (Manual) Eosinophils # (Manual) Basophils # (Manual) PT INR APTT D-Dimer Heparin Anti-Xa Level ABG pH POC ABG pCO2 49.0 H POC ABG pO2 69.6 L ABG pO2 ABG HCO3 ABG O2 Saturation ABG Base Excess ABG Hemoglobin 8.5 L ABG Oxyhemoglobin 90.5 L ABG Sodium 133.6 L ABG Potassium 5.1 H ABG Chloride ABG Glucose 104 H Oxyhemoglobin Carboxyhemoglobin Sodium 133 L Potassium 5.7 H Chloride 96.3 L Carbon Dioxide 20 L D BUN 102 H Creatinine 4.4 H Glucose 101 H POC Glucose 120 H Lactic Acid Calcium 7.9 L Phosphorus Magnesium Ferritin Direct Bilirubin AST 61 H ALT 85 H Alkaline Phosphatase 144 H Lactate Dehydrogenase Total Creatine Kinase C-Reactive Protein Total Protein 5.4 L Albumin 2.0 L Triglycerides Arterial Blood Glucose 104 H Arterial Blood Ionized Calcium 4.3 L Urine Creatinine Urine Chloride Vancomycin Trough Coronavirus (PCR) Crossmatch 07/13/20 07/13/20 07/13/20 08:48 12:14 15:12 WBC 27.5 H RBC 3.03 L Hgb 8.7 L Hct 27.0 L MCHC RDW 18.0 H Plt Count Lymph % (Auto) [place] % (Auto) Lymph # (Auto) [place] # (Auto) Eos # (Auto) Baso # (Auto) Seg Neutrophils % Seg Neuts % (Manual) Lymphocytes % (Manual) Monocytes % (Manual) Basophils % (Manual) Nucleated RBC % Seg Neutrophils # Seg Neutrophils # Man Lymphocytes # (Manual) Monocytes # (Manual) Eosinophils # (Manual) Basophils # (Manual) PT INR APTT D-Dimer Heparin Anti-Xa Level ABG pH POC ABG pCO2 POC ABG pO2 ABG pO2 ABG HCO3 ABG O2 Saturation ABG Base Excess ABG Hemoglobin ABG Oxyhemoglobin ABG Sodium ABG Potassium ABG Chloride ABG Glucose Oxyhemoglobin Carboxyhemoglobin Sodium Potassium 5.5 H Chloride Carbon Dioxide BUN 88 H Creatinine 3.8 H Glucose 133 H POC Glucose 134 H Lactic Acid Calcium 7.5 L Phosphorus Magnesium Ferritin Direct Bilirubin AST ALT Alkaline Phosphatase Lactate Dehydrogenase Total Creatine Kinase C-Reactive Protein Total Protein Albumin Triglycerides Arterial Blood Glucose Arterial Blood Ionized Calcium Urine Creatinine Urine Chloride Vancomycin Trough Coronavirus (PCR) Crossmatch 07/13/20 07/13/20 07/13/20 16:46 16:47 18:46 WBC RBC Hgb 7.4 L Hct 22.1 L MCHC RDW Plt Count Lymph % (Auto) [place] % (Auto) Lymph # (Auto) [place] # (Auto) Eos # (Auto) Baso # (Auto) Seg Neutrophils % Seg Neuts % (Manual) Lymphocytes % (Manual) Monocytes % (Manual) Basophils % (Manual) Nucleated RBC % Seg Neutrophils # Seg Neutrophils # Man Lymphocytes # (Manual) Monocytes # (Manual) Eosinophils # (Manual) Basophils # (Manual) PT INR APTT D-Dimer Heparin Anti-Xa Level ABG pH POC ABG pCO2 POC ABG pO2 ABG pO2 ABG HCO3 ABG O2 Saturation ABG Base Excess ABG Hemoglobin ABG Oxyhemoglobin ABG Sodium ABG Potassium ABG Chloride ABG Glucose Oxyhemoglobin Carboxyhemoglobin Sodium Potassium Chloride Carbon Dioxide BUN Creatinine Glucose POC Glucose 118 H Lactic Acid Calcium Phosphorus Magnesium Ferritin Direct Bilirubin AST ALT Alkaline Phosphatase Lactate Dehydrogenase Total Creatine Kinase C-Reactive Protein Total Protein Albumin Triglycerides Arterial Blood Glucose Arterial Blood Ionized Calcium Urine Creatinine Urine Chloride Vancomycin Trough Coronavirus (PCR) Crossmatch See Detail 07/13/20 07/14/20 07/14/20 23:34 04:25 12:21 WBC RBC Hgb Hct MCHC RDW Plt Count Lymph % (Auto) [place] % (Auto) Lymph # (Auto) [place] # (Auto) Eos # (Auto) Baso # (Auto) Seg Neutrophils % Seg Neuts % (Manual) Lymphocytes % (Manual) Monocytes % (Manual) Basophils % (Manual) Nucleated RBC % Seg Neutrophils # Seg Neutrophils # Man Lymphocytes # (Manual) Monocytes # (Manual) Eosinophils # (Manual) Basophils # (Manual) PT INR APTT D-Dimer Heparin Anti-Xa Level ABG pH POC ABG pCO2 POC ABG pO2 ABG pO2 ABG HCO3 ABG O2 Saturation ABG Base Excess ABG Hemoglobin 8.9 L ABG Oxyhemoglobin ABG Sodium 133.1 L ABG Potassium 4.7 H ABG Chloride ABG Glucose 113 H Oxyhemoglobin Carboxyhemoglobin Sodium Potassium Chloride Carbon Dioxide BUN Creatinine Glucose POC Glucose 109 H 109 H Lactic Acid Calcium Phosphorus Magnesium Ferritin Direct Bilirubin AST ALT Alkaline Phosphatase Lactate Dehydrogenase Total Creatine Kinase C-Reactive Protein Total Protein Albumin Triglycerides Arterial Blood Glucose 113 H Arterial Blood Ionized Calcium 4.4 L Urine Creatinine Urine Chloride Vancomycin Trough Coronavirus (PCR) Crossmatch 07/14/20 07/14/20 07/14/20 16:44 16:44 20:20 WBC 30.1 H RBC 2.60 L Hgb 7.4 L 5.6 L* Hct 23.0 L 18.1 L* MCHC RDW 18.0 H Plt Count Lymph % (Auto) [place] % (Auto) Lymph # (Auto) [place] # (Auto) Eos # (Auto) Baso # (Auto) Seg Neutrophils % Seg Neuts % (Manual) 78.0 H Lymphocytes % (Manual) 5.0 L Monocytes % (Manual) Basophils % (Manual) Nucleated RBC % Seg Neutrophils # Seg Neutrophils # Man 23.5 H Lymphocytes # (Manual) Monocytes # (Manual) 0.9 H Eosinophils # (Manual) Basophils # (Manual) PT 15.6 H INR 1.26 H APTT D-Dimer Heparin Anti-Xa Level ABG pH POC ABG pCO2 POC ABG pO2 ABG pO2 ABG HCO3 ABG O2 Saturation ABG Base Excess ABG Hemoglobin ABG Oxyhemoglobin ABG Sodium ABG Potassium ABG Chloride ABG Glucose Oxyhemoglobin Carboxyhemoglobin Sodium Potassium Chloride Carbon Dioxide BUN Creatinine Glucose POC Glucose Lactic Acid Calcium Phosphorus Magnesium Ferritin Direct Bilirubin AST ALT Alkaline Phosphatase Lactate Dehydrogenase Total Creatine Kinase C-Reactive Protein Total Protein Albumin Triglycerides Arterial Blood Glucose Arterial Blood Ionized Calcium Urine Creatinine Urine Chloride Vancomycin Trough Coronavirus (PCR) Crossmatch 07/14/20 07/14/20 07/15/20 21:19 23:45 04:13 WBC RBC Hgb Hct MCHC RDW Plt Count Lymph % (Auto) [place] % (Auto) Lymph # (Auto) [place] # (Auto) Eos # (Auto) Baso # (Auto) Seg Neutrophils % Seg Neuts % (Manual) Lymphocytes % (Manual) Monocytes % (Manual) Basophils % (Manual) Nucleated RBC % Seg Neutrophils # Seg Neutrophils # Man Lymphocytes # (Manual) Monocytes # (Manual) Eosinophils # (Manual) Basophils # (Manual) PT INR APTT D-Dimer Heparin Anti-Xa Level ABG pH POC ABG pCO2 POC ABG pO2 ABG pO2 ABG HCO3 ABG O2 Saturation ABG Base Excess ABG Hemoglobin 5.8 L 6.0 L ABG Oxyhemoglobin 93.8 L ABG Sodium 132.2 L 130.3 L ABG Potassium 5.5 H 5.8 H ABG Chloride ABG Glucose 118 H 122 H Oxyhemoglobin Carboxyhemoglobin Sodium Potassium Chloride Carbon Dioxide BUN Creatinine Glucose POC Glucose 126 H Lactic Acid Calcium Phosphorus Magnesium Ferritin Direct Bilirubin AST ALT Alkaline Phosphatase Lactate Dehydrogenase Total Creatine Kinase C-Reactive Protein Total Protein Albumin Triglycerides Arterial Blood Glucose 118 H 122 H Arterial Blood Ionized Calcium 4.3 L 4.2 L Urine Creatinine Urine Chloride Vancomycin Trough Coronavirus (PCR) Crossmatch 07/15/20 07/15/20 07/15/20 08:21 08:21 08:38 WBC 45.5 H* RBC 2.42 L Hgb 7.1 L Hct 21.5 L MCHC RDW 16.5 H Plt Count Lymph % (Auto) [place] % (Auto) Lymph # (Auto) [place] # (Auto) Eos # (Auto) Baso # (Auto) Seg Neutrophils % Seg Neuts % (Manual) 89.0 H Lymphocytes % (Manual) 7.0 L Monocytes % (Manual) Basophils % (Manual) Nucleated RBC % Seg Neutrophils # Seg Neutrophils # Man 40.5 H Lymphocytes # (Manual) Monocytes # (Manual) 1.8 H Eosinophils # (Manual) Basophils # (Manual) PT 17.6 H INR 1.46 H APTT D-Dimer Heparin Anti-Xa Level ABG pH POC ABG pCO2 POC ABG pO2 ABG pO2 ABG HCO3 ABG O2 Saturation ABG Base Excess ABG Hemoglobin ABG Oxyhemoglobin ABG Sodium ABG Potassium ABG Chloride ABG Glucose Oxyhemoglobin Carboxyhemoglobin Sodium 131 L Potassium 6.0 H Chloride 94.6 L Carbon Dioxide 20 L BUN 116 H Creatinine 4.6 H Glucose 123 H POC Glucose Lactic Acid Calcium 7.6 L Phosphorus Magnesium Ferritin Direct Bilirubin AST ALT Alkaline Phosphatase Lactate Dehydrogenase Total Creatine Kinase C-Reactive Protein Total Protein Albumin Triglycerides Arterial Blood Glucose Arterial Blood Ionized Calcium Urine Creatinine Urine Chloride Vancomycin Trough Coronavirus (PCR) Crossmatch 07/15/20 07/15/20 07/15/20 11:29 17:23 18:52 WBC RBC Hgb Hct MCHC RDW Plt Count Lymph % (Auto) [place] % (Auto) Lymph # (Auto) [place] # (Auto) Eos # (Auto) Baso # (Auto) Seg Neutrophils % Seg Neuts % (Manual) Lymphocytes % (Manual) Monocytes % (Manual) Basophils % (Manual) Nucleated RBC % Seg Neutrophils # Seg Neutrophils # Man Lymphocytes # (Manual) Monocytes # (Manual) Eosinophils # (Manual) Basophils # (Manual) PT INR APTT D-Dimer Heparin Anti-Xa Level ABG pH POC ABG pCO2 POC ABG pO2 ABG pO2 ABG HCO3 ABG O2 Saturation ABG Base Excess ABG Hemoglobin ABG Oxyhemoglobin ABG Sodium ABG Potassium ABG Chloride ABG Glucose Oxyhemoglobin Carboxyhemoglobin Sodium Potassium Chloride 97.9 L Carbon Dioxide BUN 78 H Creatinine 3.1 H Glucose 114 H POC Glucose 181 H 120 H Lactic Acid Calcium 7.3 L Phosphorus Magnesium Ferritin Direct Bilirubin AST ALT Alkaline Phosphatase Lactate Dehydrogenase Total Creatine Kinase C-Reactive Protein Total Protein Albumin Triglycerides Arterial Blood Glucose Arterial Blood Ionized Calcium Urine Creatinine Urine Chloride Vancomycin Trough Coronavirus (PCR) Crossmatch 07/15/20 07/16/20 07/16/20 18:52 01:10 03:38 WBC RBC Hgb 9.9 L 8.5 L Hct 29.8 L D 24.7 L MCHC RDW Plt Count Lymph % (Auto) [place] % (Auto) Lymph # (Auto) [place] # (Auto) Eos # (Auto) Baso # (Auto) Seg Neutrophils % Seg Neuts % (Manual) Lymphocytes % (Manual) Monocytes % (Manual) Basophils % (Manual) Nucleated RBC % Seg Neutrophils # Seg Neutrophils # Man Lymphocytes # (Manual) Monocytes # (Manual) Eosinophils # (Manual) Basophils # (Manual) PT INR APTT D-Dimer Heparin Anti-Xa Level ABG pH 7.314 L POC ABG pCO2 48.5 H POC ABG pO2 58.9 L ABG pO2 ABG HCO3 ABG O2 Saturation ABG Base Excess ABG Hemoglobin 8.7 L ABG Oxyhemoglobin 86.7 L ABG Sodium 132.7 L ABG Potassium 5.2 H ABG Chloride ABG Glucose 99 H Oxyhemoglobin Carboxyhemoglobin Sodium Potassium Chloride Carbon Dioxide BUN Creatinine Glucose POC Glucose Lactic Acid Calcium Phosphorus Magnesium Ferritin Direct Bilirubin AST ALT Alkaline Phosphatase Lactate Dehydrogenase Total Creatine Kinase C-Reactive Protein Total Protein Albumin Triglycerides Arterial Blood Glucose 99 H Arterial Blood Ionized Calcium 3.9 L Urine Creatinine Urine Chloride Vancomycin Trough Coronavirus (PCR) Crossmatch 07/16/20 07/16/20 07/16/20 04:28 04:28 07:29 WBC 48.9 H* RBC 2.86 L Hgb 8.6 L 7.9 L Hct 25.4 L 24.4 L MCHC RDW 15.6 H Plt Count Lymph % (Auto) [place] % (Auto) Lymph # (Auto) [place] # (Auto) Eos # (Auto) Baso # (Auto) Seg Neutrophils % Seg Neuts % (Manual) Lymphocytes % (Manual) Monocytes % (Manual) Basophils % (Manual) Nucleated RBC % Seg Neutrophils # Seg Neutrophils # Man Lymphocytes # (Manual) Monocytes # (Manual) Eosinophils # (Manual) Basophils # (Manual) PT INR APTT D-Dimer Heparin Anti-Xa Level ABG pH POC ABG pCO2 POC ABG pO2 ABG pO2 ABG HCO3 ABG O2 Saturation ABG Base Excess ABG Hemoglobin ABG Oxyhemoglobin ABG Sodium ABG Potassium ABG Chloride ABG Glucose Oxyhemoglobin Carboxyhemoglobin Sodium 136 L Potassium 5.4 H Chloride 95.0 L Carbon Dioxide BUN 85 H Creatinine 3.4 H Glucose 66 L POC Glucose Lactic Acid Calcium 6.8 L Phosphorus Magnesium Ferritin Direct Bilirubin AST ALT Alkaline Phosphatase Lactate Dehydrogenase Total Creatine Kinase C-Reactive Protein Total Protein Albumin Triglycerides Arterial Blood Glucose Arterial Blood Ionized Calcium Urine Creatinine Urine Chloride Vancomycin Trough Coronavirus (PCR) Crossmatch 07/16/20 07/16/20 07/16/20 11:52 18:06 18:08 WBC RBC Hgb 7.4 L Hct 22.5 L MCHC RDW Plt Count Lymph % (Auto) [place] % (Auto) Lymph # (Auto) [place] # (Auto) Eos # (Auto) Baso # (Auto) Seg Neutrophils % Seg Neuts % (Manual) Lymphocytes % (Manual) Monocytes % (Manual) Basophils % (Manual) Nucleated RBC % Seg Neutrophils # Seg Neutrophils # Man Lymphocytes # (Manual) Monocytes # (Manual) Eosinophils # (Manual) Basophils # (Manual) PT INR APTT D-Dimer Heparin Anti-Xa Level ABG pH POC ABG pCO2 POC ABG pO2 ABG pO2 ABG HCO3 ABG O2 Saturation ABG Base Excess ABG Hemoglobin ABG Oxyhemoglobin ABG Sodium ABG Potassium ABG Chloride ABG Glucose Oxyhemoglobin Carboxyhemoglobin Sodium Potassium Chloride Carbon Dioxide BUN Creatinine Glucose POC Glucose 124 H 108 H Lactic Acid Calcium Phosphorus Magnesium Ferritin Direct Bilirubin AST ALT Alkaline Phosphatase Lactate Dehydrogenase Total Creatine Kinase C-Reactive Protein Total Protein Albumin Triglycerides Arterial Blood Glucose Arterial Blood Ionized Calcium Urine Creatinine Urine Chloride Vancomycin Trough Coronavirus (PCR) Crossmatch 07/17/20 07/17/20 07/17/20 03:27 15:25 15:25 WBC 46.2 H* RBC 2.05 L Hgb 6.1 L Hct 18.4 L* MCHC RDW 15.6 H Plt Count Lymph % (Auto) [place] % (Auto) Lymph # (Auto) [place] # (Auto) Eos # (Auto) Baso # (Auto) Seg Neutrophils % Seg Neuts % (Manual) 87.0 H Lymphocytes % (Manual) 3.0 L Monocytes % (Manual) Basophils % (Manual) Nucleated RBC % Seg Neutrophils # Seg Neutrophils # Man 40.2 H Lymphocytes # (Manual) Monocytes # (Manual) 3.2 H Eosinophils # (Manual) Basophils # (Manual) PT 18.2 H INR 1.52 H APTT D-Dimer Heparin Anti-Xa Level ABG pH 7.313 L POC ABG pCO2 50.9 H POC ABG pO2 ABG pO2 ABG HCO3 ABG O2 Saturation ABG Base Excess ABG Hemoglobin 7.5 L ABG Oxyhemoglobin ABG Sodium 131.8 L ABG Potassium 4.6 H ABG Chloride ABG Glucose 105 H Oxyhemoglobin Carboxyhemoglobin Sodium Potassium Chloride Carbon Dioxide BUN Creatinine Glucose POC Glucose Lactic Acid Calcium Phosphorus Magnesium Ferritin Direct Bilirubin AST ALT Alkaline Phosphatase Lactate Dehydrogenase Total Creatine Kinase C-Reactive Protein Total Protein Albumin Triglycerides Arterial Blood Glucose 105 H Arterial Blood Ionized Calcium 3.9 L Urine Creatinine Urine Chloride Vancomycin Trough Coronavirus (PCR) Crossmatch 07/17/20 07/18/20 07/18/20 Unknown 03:10 05:06 WBC 37.9 H RBC 2.91 L Hgb 8.5 L Hct 25.6 L D MCHC RDW Plt Count Lymph % (Auto) [place] % (Auto) Lymph # (Auto) [place] # (Auto) Eos # (Auto) Baso # (Auto) Seg Neutrophils % Seg Neuts % (Manual) Lymphocytes % (Manual) Monocytes % (Manual) Basophils % (Manual) Nucleated RBC % Seg Neutrophils # Seg Neutrophils # Man Lymphocytes # (Manual) Monocytes # (Manual) Eosinophils # (Manual) Basophils # (Manual) PT INR APTT D-Dimer Heparin Anti-Xa Level ABG pH POC ABG pCO2 POC ABG pO2 114.9 H ABG pO2 ABG HCO3 ABG O2 Saturation ABG Base Excess ABG Hemoglobin 8.6 L ABG Oxyhemoglobin ABG Sodium 130.6 L ABG Potassium 4.9 H ABG Chloride ABG Glucose Oxyhemoglobin Carboxyhemoglobin Sodium Potassium Chloride Carbon Dioxide BUN Creatinine Glucose POC Glucose Lactic Acid Calcium Phosphorus Magnesium Ferritin Direct Bilirubin AST ALT Alkaline Phosphatase Lactate Dehydrogenase Total Creatine Kinase C-Reactive Protein Total Protein Albumin Triglycerides Arterial Blood Glucose Arterial Blood Ionized Calcium 3.8 L Urine Creatinine Urine Chloride Vancomycin Trough Coronavirus (PCR) Crossmatch See Detail 07/18/20 07/19/20 07/19/20 05:06 00:06 03:57 WBC RBC Hgb Hct MCHC RDW Plt Count Lymph % (Auto) [place] % (Auto) Lymph # (Auto) [place] # (Auto) Eos # (Auto) Baso # (Auto) Seg Neutrophils % Seg Neuts % (Manual) Lymphocytes % (Manual) Monocytes % (Manual) Basophils % (Manual) Nucleated RBC % Seg Neutrophils # Seg Neutrophils # Man Lymphocytes # (Manual) Monocytes # (Manual) Eosinophils # (Manual) Basophils # (Manual) PT INR APTT D-Dimer Heparin Anti-Xa Level ABG pH POC ABG pCO2 POC ABG pO2 ABG pO2 ABG HCO3 ABG O2 Saturation ABG Base Excess ABG Hemoglobin 8.6 L ABG Oxyhemoglobin ABG Sodium 130.4 L ABG Potassium ABG Chloride ABG Glucose Oxyhemoglobin Carboxyhemoglobin Sodium Potassium 5.4 H Chloride Carbon Dioxide BUN 79 H Creatinine 3.2 H Glucose POC Glucose 69 L Lactic Acid Calcium 6.9 L Phosphorus Magnesium Ferritin Direct Bilirubin AST ALT 58 H Alkaline Phosphatase Lactate Dehydrogenase Total Creatine Kinase C-Reactive Protein Total Protein 4.3 L D Albumin 1.7 L Triglycerides 306 H Arterial Blood Glucose Arterial Blood Ionized Calcium 3.9 L Urine Creatinine Urine Chloride Vancomycin Trough Coronavirus (PCR) Crossmatch 07/19/20 07/19/20 07/19/20 05:22 09:15 09:15 WBC 32.5 H RBC 2.57 L Hgb 7.8 L Hct 22.8 L MCHC RDW 15.3 H Plt Count Lymph % (Auto) [place] % (Auto) Lymph # (Auto) [place] # (Auto) Eos # (Auto) Baso # (Auto) Seg Neutrophils % Seg Neuts % (Manual) Lymphocytes % (Manual) Monocytes % (Manual) Basophils % (Manual) Nucleated RBC % Seg Neutrophils # Seg Neutrophils # Man Lymphocytes # (Manual) Monocytes # (Manual) Eosinophils # (Manual) Basophils # (Manual) PT INR APTT D-Dimer Heparin Anti-Xa Level ABG pH POC ABG pCO2 POC ABG pO2 ABG pO2 ABG HCO3 ABG O2 Saturation ABG Base Excess ABG Hemoglobin ABG Oxyhemoglobin ABG Sodium ABG Potassium ABG Chloride ABG Glucose Oxyhemoglobin Carboxyhemoglobin Sodium 135 L Potassium Chloride 96.3 L Carbon Dioxide BUN 61 H Creatinine 2.8 H Glucose POC Glucose 64 L Lactic Acid Calcium 6.8 L Phosphorus Magnesium Ferritin Direct Bilirubin AST 54 H ALT 65 H Alkaline Phosphatase Lactate Dehydrogenase Total Creatine Kinase C-Reactive Protein Total Protein 4.3 L Albumin 1.8 L Triglycerides Arterial Blood Glucose Arterial Blood Ionized Calcium Urine Creatinine Urine Chloride Vancomycin Trough Coronavirus (PCR) Crossmatch 07/20/20 07/20/20 07/20/20 05:20 06:00 06:07 WBC 28.1 H RBC 2.53 L Hgb 7.7 L Hct 22.7 L MCHC RDW 15.5 H Plt Count Lymph % (Auto) [place] % (Auto) Lymph # (Auto) [place] # (Auto) Eos # (Auto) Baso # (Auto) Seg Neutrophils % Seg Neuts % (Manual) Lymphocytes % (Manual) Monocytes % (Manual) Basophils % (Manual) Nucleated RBC % Seg Neutrophils # Seg Neutrophils # Man Lymphocytes # (Manual) Monocytes # (Manual) Eosinophils # (Manual) Basophils # (Manual) PT INR APTT D-Dimer Heparin Anti-Xa Level ABG pH POC ABG pCO2 POC ABG pO2 ABG pO2 ABG HCO3 ABG O2 Saturation ABG Base Excess ABG Hemoglobin 6.3 L ABG Oxyhemoglobin ABG Sodium 130.0 L ABG Potassium ABG Chloride ABG Glucose 114 H Oxyhemoglobin Carboxyhemoglobin Sodium Potassium Chloride Carbon Dioxide BUN Creatinine Glucose POC Glucose 110 H Lactic Acid Calcium Phosphorus Magnesium Ferritin Direct Bilirubin AST ALT Alkaline Phosphatase Lactate Dehydrogenase Total Creatine Kinase C-Reactive Protein Total Protein Albumin Triglycerides Arterial Blood Glucose 114 H Arterial Blood Ionized Calcium 3.9 L Urine Creatinine Urine Chloride Vancomycin Trough Coronavirus (PCR) Crossmatch 07/20/20 07/21/20 07/21/20 17:19 05:02 05:40 WBC 32.9 H RBC 2.78 L Hgb 8.5 L Hct 25.2 L MCHC RDW 15.7 H Plt Count 74 L Lymph % (Auto) [place] % (Auto) Lymph # (Auto) [place] # (Auto) Eos # (Auto) Baso # (Auto) Seg Neutrophils % Seg Neuts % (Manual) Lymphocytes % (Manual) Monocytes % (Manual) Basophils % (Manual) Nucleated RBC % Seg Neutrophils # Seg Neutrophils # Man Lymphocytes # (Manual) Monocytes # (Manual) Eosinophils # (Manual) Basophils # (Manual) PT INR APTT D-Dimer Heparin Anti-Xa Level ABG pH POC ABG pCO2 POC ABG pO2 73.2 L ABG pO2 ABG HCO3 ABG O2 Saturation ABG Base Excess ABG Hemoglobin 9.1 L ABG Oxyhemoglobin 93.4 L ABG Sodium ABG Potassium 3.1 L ABG Chloride ABG Glucose 112 H Oxyhemoglobin Carboxyhemoglobin Sodium Potassium Chloride Carbon Dioxide BUN Creatinine Glucose POC Glucose 137 H Lactic Acid Calcium Phosphorus Magnesium Ferritin Direct Bilirubin AST ALT Alkaline Phosphatase Lactate Dehydrogenase Total Creatine Kinase C-Reactive Protein Total Protein Albumin Triglycerides Arterial Blood Glucose 112 H Arterial Blood Ionized Calcium Urine Creatinine Urine Chloride Vancomycin Trough Coronavirus (PCR) Crossmatch 07/22/20 07/22/20 07/22/20 04:11 16:00 16:00 WBC 38.7 H RBC 2.72 L Hgb 8.1 L Hct 24.5 L MCHC RDW 16.1 H Plt Count Lymph % (Auto) [place] % (Auto) Lymph # (Auto) [place] # (Auto) Eos # (Auto) Baso # (Auto) Seg Neutrophils % Seg Neuts % (Manual) Lymphocytes % (Manual) Monocytes % (Manual) Basophils % (Manual) Nucleated RBC % Seg Neutrophils # Seg Neutrophils # Man Lymphocytes # (Manual) Monocytes # (Manual) Eosinophils # (Manual) Basophils # (Manual) PT INR APTT D-Dimer Heparin Anti-Xa Level ABG pH POC ABG pCO2 POC ABG pO2 67.7 L ABG pO2 ABG HCO3 ABG O2 Saturation ABG Base Excess ABG Hemoglobin 7.4 L ABG Oxyhemoglobin 91.7 L ABG Sodium ABG Potassium 2.9 L ABG Chloride ABG Glucose 105 H Oxyhemoglobin Carboxyhemoglobin Sodium Potassium Chloride Carbon Dioxide BUN Creatinine Glucose POC Glucose Lactic Acid Calcium Phosphorus Magnesium Ferritin Direct Bilirubin AST ALT Alkaline Phosphatase Lactate Dehydrogenase Total Creatine Kinase C-Reactive Protein Total Protein Albumin Triglycerides 197 H Arterial Blood Glucose 105 H Arterial Blood Ionized Calcium Urine Creatinine Urine Chloride Vancomycin Trough Coronavirus (PCR) Crossmatch 07/23/20 07/23/20 07/23/20 04:56 11:49 Unknown WBC RBC Hgb Hct MCHC RDW Plt Count Lymph % (Auto) [place] % (Auto) Lymph # (Auto) [place] # (Auto) Eos # (Auto) Baso # (Auto) Seg Neutrophils % Seg Neuts % (Manual) Lymphocytes % (Manual) Monocytes % (Manual) Basophils % (Manual) Nucleated RBC % Seg Neutrophils # Seg Neutrophils # Man Lymphocytes # (Manual) Monocytes # (Manual) Eosinophils # (Manual) Basophils # (Manual) PT INR APTT D-Dimer Heparin Anti-Xa Level ABG pH POC ABG pCO2 POC ABG pO2 75.7 L ABG pO2 ABG HCO3 ABG O2 Saturation ABG Base Excess ABG Hemoglobin 9.3 L ABG Oxyhemoglobin ABG Sodium ABG Potassium 3.1 L ABG Chloride 108.0 H ABG Glucose 101 H Oxyhemoglobin Carboxyhemoglobin Sodium Potassium 3.1 L D Chloride Carbon Dioxide BUN 36 H Creatinine 2.1 H Glucose 103 H POC Glucose 107 H Lactic Acid Calcium Phosphorus Magnesium Ferritin Direct Bilirubin AST ALT Alkaline Phosphatase Lactate Dehydrogenase Total Creatine Kinase C-Reactive Protein Total Protein Albumin Triglycerides Arterial Blood Glucose 101 H Arterial Blood Ionized Calcium Urine Creatinine Urine Chloride Vancomycin Trough Coronavirus (PCR) Crossmatch 07/24/20 07/24/20 07/24/20 06:40 06:40 20:38 WBC 31.4 H RBC 2.37 L Hgb 7.2 L Hct 21.7 L MCHC RDW 17.0 H Plt Count Lymph % (Auto) [place] % (Auto) Lymph # (Auto) [place] # (Auto) Eos # (Auto) Baso # (Auto) Seg Neutrophils % Seg Neuts % (Manual) 85.0 H Lymphocytes % (Manual) 6.0 L Monocytes % (Manual) Basophils % (Manual) Nucleated RBC % Seg Neutrophils # Seg Neutrophils # Man 26.7 H Lymphocytes # (Manual) Monocytes # (Manual) 0.9 H Eosinophils # (Manual) Basophils # (Manual) 0.3 H PT INR APTT D-Dimer Heparin Anti-Xa Level ABG pH POC ABG pCO2 POC ABG pO2 ABG pO2 ABG HCO3 ABG O2 Saturation ABG Base Excess ABG Hemoglobin ABG Oxyhemoglobin ABG Sodium ABG Potassium ABG Chloride ABG Glucose Oxyhemoglobin Carboxyhemoglobin Sodium Potassium 3.1 L Chloride Carbon Dioxide BUN 46 H Creatinine 2.5 H Glucose 109 H POC Glucose Lactic Acid Calcium Phosphorus Magnesium Ferritin Direct Bilirubin AST 46 H ALT 74 H Alkaline Phosphatase 180 H Lactate Dehydrogenase Total Creatine Kinase C-Reactive Protein Total Protein 4.6 L Albumin 2.0 L Triglycerides Arterial Blood Glucose Arterial Blood Ionized Calcium Urine Creatinine Urine Chloride Vancomycin Trough Coronavirus (PCR) Crossmatch See Detail 07/24/20 07/25/20 07/25/20 20:40 05:39 05:39 WBC 26.6 H RBC 2.79 L Hgb 8.5 L Hct 25.6 L MCHC RDW 16.1 H Plt Count Lymph % (Auto) [place] % (Auto) Lymph # (Auto) [place] # (Auto) Eos # (Auto) Baso # (Auto) Seg Neutrophils % Seg Neuts % (Manual) 72.0 H Lymphocytes % (Manual) 2.0 L Monocytes % (Manual) Basophils % (Manual) 3.0 H Nucleated RBC % 1.0 H Seg Neutrophils # Seg Neutrophils # Man 19.2 H Lymphocytes # (Manual) 0.5 L Monocytes # (Manual) 1.6 H Eosinophils # (Manual) 0.5 H Basophils # (Manual) 0.8 H PT 15.3 H INR 1.21 H APTT D-Dimer Heparin Anti-Xa Level ABG pH POC ABG pCO2 POC ABG pO2 ABG pO2 ABG HCO3 ABG O2 Saturation ABG Base Excess ABG Hemoglobin ABG Oxyhemoglobin ABG Sodium ABG Potassium ABG Chloride ABG Glucose Oxyhemoglobin Carboxyhemoglobin Sodium Potassium Chloride Carbon Dioxide BUN 55 H Creatinine 2.9 H Glucose POC Glucose Lactic Acid Calcium Phosphorus Magnesium Ferritin Direct Bilirubin AST ALT Alkaline Phosphatase Lactate Dehydrogenase Total Creatine Kinase C-Reactive Protein Total Protein Albumin Triglycerides Arterial Blood Glucose Arterial Blood Ionized Calcium Urine Creatinine Urine Chloride Vancomycin Trough Coronavirus (PCR) Crossmatch 07/25/20 07/26/20 07/26/20 17:22 08:46 08:46 WBC RBC Hgb Hct MCHC RDW Plt Count Lymph % (Auto) [place] % (Auto) Lymph # (Auto) [place] # (Auto) Eos # (Auto) Baso # (Auto) Seg Neutrophils % Seg Neuts % (Manual) Lymphocytes % (Manual) Monocytes % (Manual) Basophils % (Manual) Nucleated RBC % Seg Neutrophils # Seg Neutrophils # Man Lymphocytes # (Manual) Monocytes # (Manual) Eosinophils # (Manual) Basophils # (Manual) PT INR APTT D-Dimer Heparin Anti-Xa Level ABG pH POC ABG pCO2 POC ABG pO2 ABG pO2 ABG HCO3 ABG O2 Saturation ABG Base Excess ABG Hemoglobin ABG Oxyhemoglobin ABG Sodium ABG Potassium ABG Chloride ABG Glucose Oxyhemoglobin Carboxyhemoglobin Sodium Potassium Chloride Carbon Dioxide 31 H BUN 37 H Creatinine 2.2 H Glucose POC Glucose 65 L Lactic Acid Calcium 8.2 L Phosphorus Magnesium Ferritin Direct Bilirubin AST ALT Alkaline Phosphatase Lactate Dehydrogenase Total Creatine Kinase C-Reactive Protein Total Protein Albumin Triglycerides 166 H Arterial Blood Glucose Arterial Blood Ionized Calcium Urine Creatinine Urine Chloride Vancomycin Trough Coronavirus (PCR) Crossmatch 07/26/20 07/27/20 07/27/20 Unknown 04:00 07:09 WBC 24.6 H 27.1 H RBC 2.68 L 2.74 L Hgb 8.3 L 8.3 L Hct 24.7 L 25.3 L MCHC RDW 16.3 H 17.2 H Plt Count Lymph % (Auto) [place] % (Auto) Lymph # (Auto) [place] # (Auto) Eos # (Auto) Baso # (Auto) Seg Neutrophils % Seg Neuts % (Manual) 82.0 H 85.0 H Lymphocytes % (Manual) 5.0 L 4.0 L Monocytes % (Manual) 8.0 H Basophils % (Manual) Nucleated RBC % Seg Neutrophils # Seg Neutrophils # Man 20.2 H 23.0 H Lymphocytes # (Manual) 1.1 L Monocytes # (Manual) 2.0 H 1.6 H Eosinophils # (Manual) 0.7 H 1.1 H Basophils # (Manual) 0.3 H PT INR APTT D-Dimer Heparin Anti-Xa Level ABG pH POC ABG pCO2 POC ABG pO2 ABG pO2 ABG HCO3 ABG O2 Saturation ABG Base Excess ABG Hemoglobin ABG Oxyhemoglobin ABG Sodium ABG Potassium ABG Chloride ABG Glucose Oxyhemoglobin Carboxyhemoglobin Sodium Potassium Chloride Carbon Dioxide BUN Creatinine Glucose POC Glucose 115 H Lactic Acid Calcium Phosphorus Magnesium Ferritin Direct Bilirubin AST ALT Alkaline Phosphatase Lactate Dehydrogenase Total Creatine Kinase C-Reactive Protein Total Protein Albumin Triglycerides Arterial Blood Glucose Arterial Blood Ionized Calcium Urine Creatinine Urine Chloride Vancomycin Trough Coronavirus (PCR) Crossmatch 07/27/20 07/27/20 07/28/20 21:45 22:36 00:05 WBC RBC Hgb 6.4 L Hct 19.8 L* MCHC RDW Plt Count Lymph % (Auto) [place] % (Auto) Lymph # (Auto) [place] # (Auto) Eos # (Auto) Baso # (Auto) Seg Neutrophils % Seg Neuts % (Manual) Lymphocytes % (Manual) Monocytes % (Manual) Basophils % (Manual) Nucleated RBC % Seg Neutrophils # Seg Neutrophils # Man Lymphocytes # (Manual) Monocytes # (Manual) Eosinophils # (Manual) Basophils # (Manual) PT INR APTT D-Dimer Heparin Anti-Xa Level ABG pH POC ABG pCO2 POC ABG pO2 ABG pO2 ABG HCO3 ABG O2 Saturation ABG Base Excess ABG Hemoglobin ABG Oxyhemoglobin ABG Sodium ABG Potassium ABG Chloride ABG Glucose Oxyhemoglobin Carboxyhemoglobin Sodium Potassium Chloride Carbon Dioxide BUN Creatinine Glucose POC Glucose 124 H Lactic Acid Calcium Phosphorus Magnesium Ferritin Direct Bilirubin AST ALT Alkaline Phosphatase Lactate Dehydrogenase Total Creatine Kinase C-Reactive Protein Total Protein Albumin Triglycerides Arterial Blood Glucose Arterial Blood Ionized Calcium Urine Creatinine Urine Chloride Vancomycin Trough Coronavirus (PCR) Crossmatch See Detail 07/28/20 07/28/20 07/28/20 04:00 06:27 12:24 WBC 30.3 H RBC 2.35 L Hgb 7.2 L Hct 21.2 L MCHC RDW 16.8 H Plt Count Lymph % (Auto) [place] % (Auto) Lymph # (Auto) [place] # (Auto) Eos # (Auto) Baso # (Auto) Seg Neutrophils % Seg Neuts % (Manual) Lymphocytes % (Manual) Monocytes % (Manual) Basophils % (Manual) Nucleated RBC % Seg Neutrophils # Seg Neutrophils # Man Lymphocytes # (Manual) Monocytes # (Manual) Eosinophils # (Manual) Basophils # (Manual) PT INR APTT D-Dimer Heparin Anti-Xa Level ABG pH POC ABG pCO2 POC ABG pO2 ABG pO2 ABG HCO3 ABG O2 Saturation ABG Base Excess ABG Hemoglobin ABG Oxyhemoglobin ABG Sodium ABG Potassium ABG Chloride ABG Glucose Oxyhemoglobin Carboxyhemoglobin Sodium Potassium Chloride Carbon Dioxide BUN Creatinine Glucose POC Glucose 107 H 110 H Lactic Acid Calcium Phosphorus Magnesium Ferritin Direct Bilirubin AST ALT Alkaline Phosphatase Lactate Dehydrogenase Total Creatine Kinase C-Reactive Protein Total Protein Albumin Triglycerides Arterial Blood Glucose Arterial Blood Ionized Calcium Urine Creatinine Urine Chloride Vancomycin Trough Coronavirus (PCR) Crossmatch 07/28/20 07/28/20 07/28/20 14:31 18:19 23:33 WBC RBC Hgb Hct MCHC RDW Plt Count Lymph % (Auto) [place] % (Auto) Lymph # (Auto) [place] # (Auto) Eos # (Auto) Baso # (Auto) Seg Neutrophils % Seg Neuts % (Manual) Lymphocytes % (Manual) Monocytes % (Manual) Basophils % (Manual) Nucleated RBC % Seg Neutrophils # Seg Neutrophils # Man Lymphocytes # (Manual) Monocytes # (Manual) Eosinophils # (Manual) Basophils # (Manual) PT INR APTT D-Dimer Heparin Anti-Xa Level ABG pH 7.333 L POC ABG pCO2 POC ABG pO2 ABG pO2 68.0 L ABG HCO3 ABG O2 Saturation 92.4 L ABG Base Excess -2.7 L ABG Hemoglobin 9.0 L ABG Oxyhemoglobin ABG Sodium ABG Potassium ABG Chloride ABG Glucose Oxyhemoglobin 89.9 L Carboxyhemoglobin Sodium Potassium Chloride Carbon Dioxide BUN Creatinine Glucose POC Glucose 117 H 113 H Lactic Acid Calcium Phosphorus Magnesium Ferritin Direct Bilirubin AST ALT Alkaline Phosphatase Lactate Dehydrogenase Total Creatine Kinase C-Reactive Protein Total Protein Albumin Triglycerides Arterial Blood Glucose Arterial Blood Ionized Calcium Urine Creatinine Urine Chloride Vancomycin Trough Coronavirus (PCR) Crossmatch 07/28/20 07/29/20 07/29/20 Unknown 04:39 04:39 WBC 38.6 H RBC 2.15 L Hgb 6.6 L Hct 19.9 L* MCHC RDW 17.5 H Plt Count Lymph % (Auto) 3.2 L [place] % (Auto) Lymph # (Auto) [place] # (Auto) 2.7 H Eos # (Auto) 0.8 H Baso # (Auto) 0.4 H Seg Neutrophils % 86.5 H Seg Neuts % (Manual) Lymphocytes % (Manual) Monocytes % (Manual) Basophils % (Manual) Nucleated RBC % Seg Neutrophils # 33.4 H Seg Neutrophils # Man Lymphocytes # (Manual) Monocytes # (Manual) Eosinophils # (Manual) Basophils # (Manual) PT INR APTT D-Dimer Heparin Anti-Xa Level ABG pH POC ABG pCO2 POC ABG pO2 ABG pO2 ABG HCO3 ABG O2 Saturation ABG Base Excess ABG Hemoglobin ABG Oxyhemoglobin ABG Sodium ABG Potassium ABG Chloride ABG Glucose Oxyhemoglobin Carboxyhemoglobin Sodium 135 L Potassium 3.2 L 3.1 L Chloride Carbon Dioxide BUN 35 H 42 H Creatinine 2.3 H 2.5 H Glucose 123 H 109 H POC Glucose Lactic Acid Calcium 7.2 L 7.5 L Phosphorus Magnesium Ferritin Direct Bilirubin AST ALT Alkaline Phosphatase Lactate Dehydrogenase Total Creatine Kinase C-Reactive Protein Total Protein Albumin Triglycerides Arterial Blood Glucose Arterial Blood Ionized Calcium Urine Creatinine Urine Chloride Vancomycin Trough Coronavirus (PCR) Crossmatch 07/29/20 07/29/20 07/29/20 05:36 11:51 17:42 WBC RBC Hgb Hct MCHC RDW Plt Count Lymph % (Auto) [place] % (Auto) Lymph # (Auto) [place] # (Auto) Eos # (Auto) Baso # (Auto) Seg Neutrophils % Seg Neuts % (Manual) Lymphocytes % (Manual) Monocytes % (Manual) Basophils % (Manual) Nucleated RBC % Seg Neutrophils # Seg Neutrophils # Man Lymphocytes # (Manual) Monocytes # (Manual) Eosinophils # (Manual) Basophils # (Manual) PT INR APTT D-Dimer Heparin Anti-Xa Level ABG pH POC ABG pCO2 POC ABG pO2 ABG pO2 ABG HCO3 ABG O2 Saturation ABG Base Excess ABG Hemoglobin ABG Oxyhemoglobin ABG Sodium ABG Potassium ABG Chloride ABG Glucose Oxyhemoglobin Carboxyhemoglobin Sodium Potassium Chloride Carbon Dioxide BUN Creatinine Glucose POC Glucose 111 H 127 H 117 H Lactic Acid Calcium Phosphorus Magnesium Ferritin Direct Bilirubin AST ALT Alkaline Phosphatase Lactate Dehydrogenase Total Creatine Kinase C-Reactive Protein Total Protein Albumin Triglycerides Arterial Blood Glucose Arterial Blood Ionized Calcium Urine Creatinine Urine Chloride Vancomycin Trough Coronavirus (PCR) Crossmatch 07/29/20 07/30/20 07/30/20 23:07 17:32 23:13 WBC RBC Hgb Hct MCHC RDW Plt Count Lymph % (Auto) [place] % (Auto) Lymph # (Auto) [place] # (Auto) Eos # (Auto) Baso # (Auto) Seg Neutrophils % Seg Neuts % (Manual) Lymphocytes % (Manual) Monocytes % (Manual) Basophils % (Manual) Nucleated RBC % Seg Neutrophils # Seg Neutrophils # Man Lymphocytes # (Manual) Monocytes # (Manual) Eosinophils # (Manual) Basophils # (Manual) PT INR APTT D-Dimer Heparin Anti-Xa Level ABG pH POC ABG pCO2 POC ABG pO2 ABG pO2 ABG HCO3 ABG O2 Saturation ABG Base Excess ABG Hemoglobin ABG Oxyhemoglobin ABG Sodium ABG Potassium ABG Chloride ABG Glucose Oxyhemoglobin Carboxyhemoglobin Sodium Potassium Chloride Carbon Dioxide BUN Creatinine Glucose POC Glucose 116 H 107 H Lactic Acid Calcium Phosphorus Magnesium Ferritin Direct Bilirubin AST ALT Alkaline Phosphatase Lactate Dehydrogenase Total Creatine Kinase C-Reactive Protein Total Protein Albumin Triglycerides Arterial Blood Glucose Arterial Blood Ionized Calcium Urine Creatinine Urine Chloride Vancomycin Trough Coronavirus (PCR) Crossmatch See Detail 07/30/20 07/31/20 07/31/20 Unknown 05:28 09:00 WBC 30.8 H RBC 2.39 L Hgb 7.3 L Hct 21.9 L MCHC RDW 16.7 H Plt Count Lymph % (Auto) [place] % (Auto) Lymph # (Auto) [place] # (Auto) Eos # (Auto) Baso # (Auto) Seg Neutrophils % Seg Neuts % (Manual) 85.0 H Lymphocytes % (Manual) 1.0 L Monocytes % (Manual) Basophils % (Manual) Nucleated RBC % 1.0 H Seg Neutrophils # Seg Neutrophils # Man 26.2 H Lymphocytes # (Manual) 0.3 L Monocytes # (Manual) 1.8 H Eosinophils # (Manual) Basophils # (Manual) PT INR APTT D-Dimer Heparin Anti-Xa Level ABG pH 7.241 L POC ABG pCO2 52.8 H POC ABG pO2 63.3 L ABG pO2 ABG HCO3 ABG O2 Saturation ABG Base Excess ABG Hemoglobin 7.6 L ABG Oxyhemoglobin ABG Sodium 133.6 L ABG Potassium ABG Chloride ABG Glucose 114 H Oxyhemoglobin Carboxyhemoglobin Sodium Potassium Chloride Carbon Dioxide BUN Creatinine Glucose POC Glucose Lactic Acid Calcium Phosphorus Magnesium Ferritin Direct Bilirubin AST ALT Alkaline Phosphatase Lactate Dehydrogenase Total Creatine Kinase C-Reactive Protein Total Protein Albumin Triglycerides 184 H Arterial Blood Glucose 114 H Arterial Blood Ionized Calcium 4.4 L Urine Creatinine Urine Chloride Vancomycin Trough Coronavirus (PCR) Crossmatch 07/31/20 07/31/20 07/31/20 09:00 12:00 16:17 WBC RBC Hgb Hct MCHC RDW Plt Count Lymph % (Auto) [place] % (Auto) Lymph # (Auto) [place] # (Auto) Eos # (Auto) Baso # (Auto) Seg Neutrophils % Seg Neuts % (Manual) Lymphocytes % (Manual) Monocytes % (Manual) Basophils % (Manual) Nucleated RBC % Seg Neutrophils # Seg Neutrophils # Man Lymphocytes # (Manual) Monocytes # (Manual) Eosinophils # (Manual) Basophils # (Manual) PT INR APTT D-Dimer Heparin Anti-Xa Level ABG pH POC ABG pCO2 POC ABG pO2 148.6 H ABG pO2 ABG HCO3 ABG O2 Saturation ABG Base Excess ABG Hemoglobin 6.7 L ABG Oxyhemoglobin ABG Sodium 132.3 L ABG Potassium ABG Chloride ABG Glucose 115 H Oxyhemoglobin Carboxyhemoglobin Sodium 136 L Potassium Chloride Carbon Dioxide BUN 46 H Creatinine 2.4 H Glucose POC Glucose 106 H Lactic Acid Calcium 7.7 L Phosphorus Magnesium Ferritin Direct Bilirubin AST ALT Alkaline Phosphatase Lactate Dehydrogenase Total Creatine Kinase C-Reactive Protein Total Protein Albumin Triglycerides Arterial Blood Glucose 115 H Arterial Blood Ionized Calcium 4.2 L Urine Creatinine Urine Chloride Vancomycin Trough Coronavirus (PCR) Crossmatch 07/31/20 08/01/20 08/01/20 17:05 04:48 05:00 WBC RBC Hgb Hct MCHC RDW Plt Count Lymph % (Auto) [place] % (Auto) Lymph # (Auto) [place] # (Auto) Eos # (Auto) Baso # (Auto) Seg Neutrophils % Seg Neuts % (Manual) Lymphocytes % (Manual) Monocytes % (Manual) Basophils % (Manual) Nucleated RBC % Seg Neutrophils # Seg Neutrophils # Man Lymphocytes # (Manual) Monocytes # (Manual) Eosinophils # (Manual) Basophils # (Manual) PT INR APTT D-Dimer Heparin Anti-Xa Level ABG pH POC ABG pCO2 POC ABG pO2 111.5 H ABG pO2 ABG HCO3 ABG O2 Saturation ABG Base Excess ABG Hemoglobin 7.1 L ABG Oxyhemoglobin ABG Sodium 131.4 L ABG Potassium ABG Chloride ABG Glucose 107 H Oxyhemoglobin Carboxyhemoglobin Sodium 135 L Potassium Chloride Carbon Dioxide BUN 56 H Creatinine 2.6 H Glucose 117 H POC Glucose 119 H Lactic Acid Calcium 7.8 L Phosphorus Magnesium Ferritin Direct Bilirubin AST ALT Alkaline Phosphatase Lactate Dehydrogenase Total Creatine Kinase C-Reactive Protein Total Protein Albumin Triglycerides Arterial Blood Glucose 107 H Arterial Blood Ionized Calcium 4.3 L Urine Creatinine Urine Chloride Vancomycin Trough Coronavirus (PCR) Crossmatch 08/01/20 08/01/20 08/01/20 05:00 11:53 17:38 WBC 22.0 H RBC 2.26 L Hgb 6.8 L Hct 20.5 L MCHC RDW 16.6 H Plt Count Lymph % (Auto) [place] % (Auto) Lymph # (Auto) [place] # (Auto) Eos # (Auto) Baso # (Auto) Seg Neutrophils % Seg Neuts % (Manual) Lymphocytes % (Manual) Monocytes % (Manual) Basophils % (Manual) Nucleated RBC % Seg Neutrophils # Seg Neutrophils # Man Lymphocytes # (Manual) Monocytes # (Manual) Eosinophils # (Manual) Basophils # (Manual) PT INR APTT D-Dimer Heparin Anti-Xa Level ABG pH POC ABG pCO2 POC ABG pO2 ABG pO2 ABG HCO3 ABG O2 Saturation ABG Base Excess ABG Hemoglobin ABG Oxyhemoglobin ABG Sodium ABG Potassium ABG Chloride ABG Glucose Oxyhemoglobin Carboxyhemoglobin Sodium Potassium Chloride Carbon Dioxide BUN Creatinine Glucose POC Glucose 107 H 111 H Lactic Acid Calcium Phosphorus Magnesium Ferritin Direct Bilirubin AST ALT Alkaline Phosphatase Lactate Dehydrogenase Total Creatine Kinase C-Reactive Protein Total Protein Albumin Triglycerides Arterial Blood Glucose Arterial Blood Ionized Calcium Urine Creatinine Urine Chloride Vancomycin Trough Coronavirus (PCR) Crossmatch 08/01/20 08/02/20 08/02/20 23:49 05:11 05:20 WBC 17.2 H RBC 2.73 L Hgb 8.3 L Hct 24.6 L MCHC RDW 16.0 H Plt Count Lymph % (Auto) [place] % (Auto) Lymph # (Auto) [place] # (Auto) Eos # (Auto) Baso # (Auto) Seg Neutrophils % Seg Neuts % (Manual) Lymphocytes % (Manual) Monocytes % (Manual) Basophils % (Manual) Nucleated RBC % Seg Neutrophils # Seg Neutrophils # Man Lymphocytes # (Manual) Monocytes # (Manual) Eosinophils # (Manual) Basophils # (Manual) PT INR APTT D-Dimer Heparin Anti-Xa Level ABG pH POC ABG pCO2 POC ABG pO2 ABG pO2 ABG HCO3 ABG O2 Saturation ABG Base Excess ABG Hemoglobin ABG Oxyhemoglobin ABG Sodium ABG Potassium ABG Chloride ABG Glucose Oxyhemoglobin Carboxyhemoglobin Sodium Potassium Chloride Carbon Dioxide BUN Creatinine Glucose POC Glucose 107 H 119 H Lactic Acid Calcium Phosphorus Magnesium Ferritin Direct Bilirubin AST ALT Alkaline Phosphatase Lactate Dehydrogenase Total Creatine Kinase C-Reactive Protein Total Protein Albumin Triglycerides Arterial Blood Glucose Arterial Blood Ionized Calcium Urine Creatinine Urine Chloride Vancomycin Trough Coronavirus (PCR) Crossmatch 08/02/20 08/03/20 08/03/20 11:24 04:00 04:10 WBC RBC Hgb Hct MCHC RDW Plt Count Lymph % (Auto) [place] % (Auto) Lymph # (Auto) [place] # (Auto) Eos # (Auto) Baso # (Auto) Seg Neutrophils % Seg Neuts % (Manual) Lymphocytes % (Manual) Monocytes % (Manual) Basophils % (Manual) Nucleated RBC % Seg Neutrophils # Seg Neutrophils # Man Lymphocytes # (Manual) Monocytes # (Manual) Eosinophils # (Manual) Basophils # (Manual) PT INR APTT D-Dimer Heparin Anti-Xa Level ABG pH POC ABG pCO2 POC ABG pO2 133.7 H ABG pO2 ABG HCO3 ABG O2 Saturation ABG Base Excess ABG Hemoglobin 8.1 L ABG Oxyhemoglobin ABG Sodium 130.0 L ABG Potassium ABG Chloride ABG Glucose 97 H Oxyhemoglobin Carboxyhemoglobin Sodium 134 L Potassium Chloride 97.3 L Carbon Dioxide BUN 70 H Creatinine 2.6 H Glucose 102 H POC Glucose 129 H Lactic Acid Calcium 8.1 L Phosphorus Magnesium Ferritin Direct Bilirubin AST ALT Alkaline Phosphatase Lactate Dehydrogenase Total Creatine Kinase C-Reactive Protein Total Protein Albumin Triglycerides Arterial Blood Glucose 97 H Arterial Blood Ionized Calcium Urine Creatinine Urine Chloride Vancomycin Trough Coronavirus (PCR) Crossmatch 08/03/20 09:14 WBC 17.8 H RBC 2.91 L Hgb 8.6 L Hct 26.3 L MCHC RDW 16.0 H Plt Count Lymph % (Auto) [place] % (Auto) Lymph # (Auto) [place] # (Auto) Eos # (Auto) Baso # (Auto) Seg Neutrophils % Seg Neuts % (Manual) Lymphocytes % (Manual) Monocytes % (Manual) Basophils % (Manual) Nucleated RBC % Seg Neutrophils # Seg Neutrophils # Man Lymphocytes # (Manual) Monocytes # (Manual) Eosinophils # (Manual) Basophils # (Manual) PT INR APTT D-Dimer Heparin Anti-Xa Level ABG pH POC ABG pCO2 POC ABG pO2 ABG pO2 ABG HCO3 ABG O2 Saturation ABG Base Excess ABG Hemoglobin ABG Oxyhemoglobin ABG Sodium ABG Potassium ABG Chloride ABG Glucose Oxyhemoglobin Carboxyhemoglobin Sodium Potassium Chloride Carbon Dioxide BUN Creatinine Glucose POC Glucose Lactic Acid Calcium Phosphorus Magnesium Ferritin Direct Bilirubin AST ALT Alkaline Phosphatase Lactate Dehydrogenase Total Creatine Kinase C-Reactive Protein Total Protein Albumin Triglycerides Arterial Blood Glucose Arterial Blood Ionized Calcium Urine Creatinine Urine Chloride Vancomycin Trough Coronavirus (PCR) Crossmatch Chest x-ray: other (bilateral R>L and basilar predominant infiltrates) Allied health notes reviewed: nursing
--- NOTE | 2020-08-03 14:04 | Event Note ---
I called his Sherri Graham at [phone] and updated her on current events including initiation of midodrine and wound care. All questions answered.
--- NOTE | 2020-08-03 15:08 | Procedure Note ---
Date of procedure: 08/03/20 Pre-op diagnosis: Stage 4 sacral pressure ulcer Post-op diagnosis: same Procedure: Debridement of stage 4 sacral pressure ulcer Description of procedure: Pt was positioned left side down. Sacral area was prepped and draped. Necrotic skin, SQ tissue, muscle and fascia were surgically, excisionally debrided with forceps and a #15 scalpel. Bleeding was minimal and was controlled with silver nitrate. Pt tolerated the procedure well. His wound was packed with 2 dry Kerlix rolls which were secured with Medipore tape. Post debridement measurements: 14 X 17 X 3.8 cm Anesthesia: none Surgeon: MANE AKBAR Estimated blood loss: minimal Pathology: none Specimen disposition: discarded Condition: stable Disposition: no change
[2020-08-03] MEDS: MIDODRINE 5 MG TAB PO SCH ×2 (16:48→20:50)
[2020-08-03] MEDS: SODIUM HYPOCHLORITE, DAKIN'S 1/2 STRENGTH (0.25%) 473 ML TOPICAL SOLN TP SCH ×2 (17:07→21:32)
[2020-08-04] MEDS: INSULIN REGULAR, HUMAN 100 UNITS/1 ML SUB-Q SCH ×5 (00:06→18:20)
[2020-08-04] MEDS: NORepinephrine/NS 4 MG-250 ML 4 MG/250 ML BAG IV SCH ×2 (00:13→17:35)
[2020-08-04] MEDS: fentaNYL DRIP Premix 2,000 MCG/100 ML BAG IV SCH ×7 (00:45→21:10)
[2020-08-04] MEDS: VASOPRESSIN 20 UNIT in SODIUM CHLORIDE 0.9% 100 ML IV SCH (01:20)
[2020-08-04 07:05] LABS: Hematocrit 24.3 % (35.5-45.6); Hemoglobin 7.8 gm/dl (11.8-15.2); Mean Corpuscular HGB Conc 32 % (32-34); Mean Corpuscular Volume 91 fl (84-94); Platelet Count 237 K/mm3 (140-440); Red Blood Count 2.69 M/mm3 (3.65-5.03); Red Cell Distribution Width 16.1 % (13.2-15.2)
[2020-08-04] MEDS: MIDODRINE 5 MG TAB PO SCH ×3 (08:50→21:12)
[2020-08-04] MEDS: CEFEPIME/NS 2 GM/100 ML 2 GM/100 ML BAG IV SCH (09:26)
[2020-08-04] MEDS: SCOPOLAMINE TRANSDERMAL PATCH 72 HR TD SCH (09:27)
[2020-08-04] MEDS: PANTOPRAZOLE 40 MG INJ IV SCH ×2 (09:27→21:14)
[2020-08-04] MEDS: DOCUSATE SODIUM 100 MG/10 ML ORAL LIQD FEEDTUBE SCH ×2 (09:27→21:12)
[2020-08-04] MEDS: AMIODARONE 200 MG TAB PO SCH ×2 (09:27→21:13)
[2020-08-04] MEDS: POLYETHYLENE GLYCOL 3350 17 GM POWDER PO SCH (09:27)
[2020-08-04] MEDS: ZINC SULFATE 220 MG CAP PO SCH ×2 (09:27→21:15)
[2020-08-04] MEDS: CHOLECALCIFEROL (VIT D3) 1000 UNIT (25 mcg) TAB PO SCH (09:27)
[2020-08-04] MEDS: ASCORBIC ACID 250 MG TAB PO SCH ×2 (09:27→21:15)
[2020-08-04] MEDS: QUEtiapine 200 MG TAB PO SCH ×2 (09:27→21:15)
[2020-08-04] MEDS: SODIUM HYPOCHLORITE, DAKIN'S 1/2 STRENGTH (0.25%) 473 ML TOPICAL SOLN TP SCH ×2 (10:52→21:13)
--- NOTE | 2020-08-04 11:12 | Progress Note ---
Assessment and Plan Cultures: SARS CoV2 PCR: Positive 06/17/2020 blood culture: No growth 06/17/2020 sputum culture: No growth 07/15/2020 blood culture: No growth 07/15/2020 fungal blood culture: Enterococcus faecalis 07/15/2020 tracheal aspirate culture: Usual respiratory otf 07/18/2020 blood culture: no growth 07/31/2020 blood culture no growth 08/01/2020 tracheal aspirate Pseudomonas intermediate to cefepime MRSA PCR negative A/P: 59-year-old male with obesity, obesity hypoventilation syndrome: #Severe sepsis with septic shock, Remains on pressors x2, leukocytosis, and fever likely secondary to pseudomonal VAP/extensive stage IV sacral decubitus #Pseudomonal VAP: Sputum on 08/01/2020 grew Pseudomonas intermediate to cefepime #Extensive stage IV sacral decubitus: s/p debridement by Dr. Kirk on 07/20/2020. S/p another debridement on 08/03/2020 Debridement of stage 4 sacral pressure ulcer -necrotic skin, SQ tissue, muscle and fascia were surgically, excisionally debrided Post debridement measurements: 14 X 17 X 3.8 cm #Recent Enterococcus bacteremia: 07/15/2020 fungal blood culture: grew Enterococcus. ?gut translocation. Interestingly other blood cultures from that day were negative. CT abdomen showed some colitis. Since repeat blood cultures negative. Completed ampicillin 14 days on 08/01/2020 #Anemia, GI bleed: GI on board. #Critical COVID-19 pneumonia: s/p abx, steroids and remdesivir. #Acute hypoxic respiratory failure: on the vent. Also with pneumomediastinum, subcutaneous emphysema. #Leukemoid reaction: likely multifactorial. #GIRISH: remains on HD per nephrology. Renally dose abx. Recs: -Stop cefepime D3 -Start meropenem renally adjusted due to MDR Pseudomonas and persistent septic shock -Left femoral Vas-Cath was removed -UA pending, not collected -monitor fever and WBC -Appreciate surgical input and recent debridement Guarded prognosis MD [facility] ([facility]) Office [phone] Subjective Date of service: 08/04/20 Principal diagnosis: ARF; Septic Shock; COVID-19 PNA; Atrial fibrillation; Obesity Interval history: Remains on vasopressin and Levophed, sedated on propofol, undergoing hemodialysis, tachycardic, on the ventilator via trach, FiO2 40% Objective - Exam Narrative Exam: General appearance: Sedated on the ventilator Eyes: anicteric sclerae, moist conjunctivae; no lid-lag; PERRLA HENT: Normocephalic, Atraumatic; normal external ears, nares open, oropharynx limited Neck: Trach in place Lungs: Bilateral rhonchi CV: RRR Abdomen: Soft nontender abdominal wall edema Extremities: Bilateral leg edema Skin: Sacral decubitus extensive not examined Psych: Sedated Neuro: Sedated - Constitutional Vitals: Vital Signs Temp Pulse Resp BP Pulse Ox 99.1 F 105 H 20 99/54 97 08/04/20 08:05 08/04/20 10:45 08/04/20 10:30 08/04/20 10:45 08/04/20 10:30 Temperature -Last 24 Hours Temperature 99.1 F Temperature 99.1 F Temperature 99.9 F Temperature 100.5 F Temperature 101.5 F Temperature 100.7 F Temperature 99.4 F Temperature 97.8 F Temperature 97.5 F - Labs CBC & Chem 7: 08/04/20 04:00 08/03/20 04:00 Labs: Abnormal lab results 08/03/20 08/03/20 08/03/20 Range/Units 11:41 17:46 21:00 WBC (4.5-11.0) K/mm3 RBC (3.65-5.03) M/mm3 Hgb (11.8-15.2) gm/dl Hct (35.5-45.6) % RDW (13.2-15.2) % POC ABG pCO2 48.3 H (32.0-48.0) mmHg POC ABG pO2 67.6 L (83-108) mmHg ABG Hemoglobin 9.8 L (12.0-17.5) ABG Oxyhemoglobin 92.2 L (94-98) ABG Sodium 133.5 L (136.0-145.0) mmol/L ABG Glucose 115 H (65-95) mg/dL POC Glucose 117 H 109 H (70-105) mg/dL Triglycerides (2-149) mg/dL Arterial Blood Glucose 115 H (65-95) mg/dL Arterial Blood Ionized Calcium 4.5 L (4.6-5.3) mg/dL 08/03/20 08/04/20 08/04/20 Range/Units 23:23 04:00 05:00 WBC 16.6 H (4.5-11.0) K/mm3 RBC 2.69 L (3.65-5.03) M/mm3 Hgb 7.8 L (11.8-15.2) gm/dl Hct 24.3 L (35.5-45.6) % RDW 16.1 H (13.2-15.2) % POC ABG pCO2 (32.0-48.0) mmHg POC ABG pO2 (83-108) mmHg ABG Hemoglobin (12.0-17.5) ABG Oxyhemoglobin (94-98) ABG Sodium (136.0-145.0) mmol/L ABG Glucose (65-95) mg/dL POC Glucose 116 H (70-105) mg/dL Triglycerides 262 H (2-149) mg/dL Arterial Blood Glucose (65-95) mg/dL Arterial Blood Ionized Calcium (4.6-5.3) mg/dL
[2020-08-04] MEDS: MEROPENEM 1,000 MG in SODIUM CHLORIDE 0.9% 100 ML IV SCH (12:32)
--- NOTE | 2020-08-04 13:32 | Progress Note ---
Assessment and Plan Acute hypoxemic respiratory failure due to COVID-19 Severe COVID infection Severe Sepsis with shock Bilateral pneumonia Acute kidney injury (GIRISH) with acute tubular necrosis (ATN) Elevated liver enzymes Obesity - add vasopressin - reduce set rate to 25/min - repeat ABG tonight - tentative transfer to LTAC in am - continue to wean vasopressors for target MAP > 65 mmHg (On Levophed & vasopressin) - continue wound care per RN / WCN - continue HD/UF per nephrology prescription - continue care as below otherwise; - daily SAT's as tolerated - continue wound care per WCN / RN - continue on bariatric bed - continue to avoid supine position as much as possible - adjust ant-infective's per ID rec's (Ampicillin) - continue bid protonix - continue tube feeds at goal rate as tolerated - continue HD/UF per nephrology team for toxin and volume clearance - continue bowel regimen - Continue to wean supplemental oxygen for O2 sats >92% - Monitor blood pressure closely while optimizing sedation,wean vasopressor support for MAP > 65 mmHg - VAP bundle addressed, aspiration precautions HOB >40 - continue lung protective strategies, permissive hypercapnic acceptable. - continue bronchodilators with routine trach care and pulmonary hygiene per RT - wean per pulmonary driven protocols otherwise - accuchecks with glycemic control per SSI (While critically ill target blood glucose of 140-180 mg/dL; avoid hypoglycemia) - sedation prn for target RASS -1 to -2 - continue enteral nutritional support at goal rate as tolerated - on antibiotics per ID recommendations - follow clinically re: fevers / WBC - Monitor liver function test ,avoid hepatotoxic agents - azotemia per nephrology rec's - Avoid nephrotoxins, renally dose all medications, conservative fluid management - continue to avoid benzodiazepines, reduce the possibility of delirium, - prn analgesia per CPOT score - Maintenance of sleep-wake cycle, avoid delirium - Stress ulcer prophylaxis, Pantoprazole - PT/OT/ROM exercises - Mobility protocols for pressure ulcer prevention - CXR, ABG in am - CBC, CMP in am - Supportive transfusions to keep HgB >7g/dL - Monitor hemodynamics closely - continue other care per attending / other consultants COVID SPECIFIC INTERVENTIONS - s/p steroids: Dexamethasone - completed Remdesivir - monitor inflammatory markers prn - ferritin, D-dimer, CRP, LDH per facility protocol - continue anticoagulation per System Protocol based on d-dimer (on hold due to bleeding) - continue contact and airborne isolation CONDITION: CRITICAL PROGNOSIS: GUARDED CODE STATUS: FULL CODE The high probability of a clinically significant, sudden or life-threatening deterioration of the [respiratory, cardiovascular, hematologic & neurologic] system(s) required my full and direct attention, intervention and personal management. The aggregate critical care time was [33] minutes without overlap. Time includes spent on; [x] Data Review and interpretation [x] Patient assessment and monitoring of vital signs [x] Documentation [x] Medication orders and management He was evaluated in the context of the global COVID-19 pandemic, which necessitated consideration that the patient might be at risk for infection with the virus that causes COVID-19. Institutional protocols and algorithms that pertain to the evaluation of patients at risk for COVID-19 are in a state of rapid change based on information released by regulatory bodies including the CDC and federal and state organizations. These policies and algorithms were followed during the patient's care in the ICU Please note that these policies, procedures and recommendations changed on a rapid basis. Subjective Date of service: 08/04/20 Principal diagnosis: ARF; Septic Shock; COVID-19 PNA; Atrial fibrillation; Obesity Interval history: Patient is seen today for: Ac hypoxemic respiratory failure; COVID-19; Severe Sepsis with shock; Zackery. pneumonia; GIRISH; Elevated liver enzymes; Obesity Seen and examined at bedside; 24hour events reviewed; nursing and respiratory care staff consulted; no adverse overnight events reported to me; resting in bed; remains on MVS; Objective Vital Signs - 12hr 08/04/20 08/04/20 08/04/20 02:00 02:30 03:00 Temperature Pulse Rate 135 H 122 H 130 H Pulse Rate [ From Monitor] Respiratory 27 H 26 H 26 H Rate Blood Pressure 145/59 160/64 154/68 O2 Sat by Pulse 93 94 93 Oximetry O2 Sat by Pulse Oximetry [ Anterior Bilateral Throughout] O2 Sat by Pulse Oximetry [ Assessment] 08/04/20 08/04/20 08/04/20 03:30 03:39 03:41 Temperature Pulse Rate 123 H 113 H Pulse Rate [ From Monitor] Respiratory 27 H Rate Blood Pressure 140/56 140/56 O2 Sat by Pulse 93 93 Oximetry O2 Sat by Pulse Oximetry [ Anterior Bilateral Throughout] O2 Sat by Pulse 93 Oximetry [ Assessment] 08/04/20 08/04/20 08/04/20 04:00 04:30 05:00 Temperature 100.5 F H Pulse Rate 118 H 124 H 127 H Pulse Rate [ 114 H From Monitor] Respiratory 26 H 26 H 19 Rate Blood Pressure 124/54 114/56 119/58 O2 Sat by Pulse 93 93 92 Oximetry O2 Sat by Pulse Oximetry [ Anterior Bilateral Throughout] O2 Sat by Pulse Oximetry [ Assessment] 08/04/20 08/04/20 08/04/20 05:30 06:00 06:30 Temperature 99.9 F H Pulse Rate 120 H 115 H 110 H Pulse Rate [ From Monitor] Respiratory 27 H 25 H 22 Rate Blood Pressure 107/50 109/53 101/46 O2 Sat by Pulse 93 94 94 Oximetry O2 Sat by Pulse Oximetry [ Anterior Bilateral Throughout] O2 Sat by Pulse Oximetry [ Assessment] 08/04/20 08/04/20 08/04/20 07:00 07:29 07:30 Temperature Pulse Rate 103 H 106 H 104 H Pulse Rate [ From Monitor] Respiratory 25 H 25 H Rate Blood Pressure 97/52 103/48 O2 Sat by Pulse 95 96 Oximetry O2 Sat by Pulse Oximetry [ Anterior Bilateral Throughout] O2 Sat by Pulse Oximetry [ Assessment] 08/04/20 08/04/20 08/04/20 08:00 08:05 08:20 Temperature 99.1 F 99.1 F Pulse Rate 97 H 100 H 100 H Pulse Rate [ From Monitor] Respiratory 25 H 24 Rate Blood Pressure 103/51 110/57 110/57 O2 Sat by Pulse 96 Oximetry O2 Sat by Pulse 96 Oximetry [ Anterior Bilateral Throughout] O2 Sat by Pulse Oximetry [ Assessment] 08/04/20 08/04/20 08/04/20 08:23 08:30 08:39 Temperature Pulse Rate 89 98 H Pulse Rate [ 88 From Monitor] Respiratory 12 24 Rate Blood Pressure 110/51 118/59 O2 Sat by Pulse 97 98 95 Oximetry O2 Sat by Pulse Oximetry [ Anterior Bilateral Throughout] O2 Sat by Pulse 97 Oximetry [ Assessment] 08/04/20 08/04/20 08/04/20 08:45 09:00 09:15 Temperature Pulse Rate 103 H 105 H 100 H Pulse Rate [ From Monitor] Respiratory 19 Rate Blood Pressure 126/59 126/59 113/52 O2 Sat by Pulse 95 Oximetry O2 Sat by Pulse Oximetry [ Anterior Bilateral Throughout] O2 Sat by Pulse Oximetry [ Assessment] 08/04/20 08/04/20 08/04/20 09:30 09:45 10:00 Temperature Pulse Rate 104 H 113 H 108 H Pulse Rate [ From Monitor] Respiratory 16 20 Rate Blood Pressure 116/53 106/51 121/56 O2 Sat by Pulse 95 100 Oximetry O2 Sat by Pulse Oximetry [ Anterior Bilateral Throughout] O2 Sat by Pulse Oximetry [ Assessment] 08/04/20 08/04/20 08/04/20 10:15 10:30 10:45 Temperature Pulse Rate 101 H 112 H 105 H Pulse Rate [ From Monitor] Respiratory 20 Rate Blood Pressure 117/51 98/60 99/54 O2 Sat by Pulse 97 Oximetry O2 Sat by Pulse Oximetry [ Anterior Bilateral Throughout] O2 Sat by Pulse Oximetry [ Assessment] 08/04/20 08/04/20 08/04/20 11:00 11:15 11:25 Temperature Pulse Rate 106 H 106 H 107 H Pulse Rate [ From Monitor] Respiratory 19 Rate Blood Pressure 90/60 98/53 98/53 O2 Sat by Pulse 97 97 Oximetry O2 Sat by Pulse Oximetry [ Anterior Bilateral Throughout] O2 Sat by Pulse Oximetry [ Assessment] 08/04/20 08/04/20 08/04/20 11:27 11:30 11:41 Temperature 99.1 F Pulse Rate 108 H 103 H 102 H Pulse Rate [ From Monitor] Respiratory 21 18 Rate Blood Pressure 92/55 99/60 99/60 O2 Sat by Pulse 97 Oximetry O2 Sat by Pulse 96 Oximetry [ Anterior Bilateral Throughout] O2 Sat by Pulse Oximetry [ Assessment] 08/04/20 08/04/20 12:00 12:03 Temperature 99 F Pulse Rate 102 H 102 H Pulse Rate [ 102 H From Monitor] Respiratory 20 19 Rate Blood Pressure 101/45 O2 Sat by Pulse 95 95 Oximetry O2 Sat by Pulse Oximetry [ Anterior Bilateral Throughout] O2 Sat by Pulse Oximetry [ Assessment] Constitutional: no acute distress, other (obese, atraumatic, normocephalic, mild resp distress, orally intubated) Eyes: non-icteric ENT: oropharynx moist, other (s/p tracheostomy) Neck: supple, no lymphadenopathy, other (Large , short neck) Effort: mildly labored Ascultation: Bilateral: clear, diminished breath sounds, rales, rhonchi Percussion: Bilateral: not dull Cardiovascular: irregular rhythm, other (S1,S2) Gastrointestinal: normoactive bowel sounds, soft, non-tender, non-distended (protuberant) Integumentary: rash, other (Femoral CVC, Newell catheter) Extremities: pink and warm, pulses normal, no ischemia or petechiae, edema (trace to 1+) Neurologic: non-focal exam (grossly), pupils equal and round, CN II-XII normal, other (unable to assess, sedated) Psychiatric: other (unable to assess, sedated) CBC and BMP: 08/04/20 04:00 08/03/20 04:00 ABG, PT/INR, D-dimer: ABG ABG pH 7.342 (7.320-7.450) 08/03/20 21:00 POC ABG pCO2 48.3 mmHg (32.0-48.0) H 08/03/20 21:00 ABG pCO2 44.4 mm Hg 07/28/20 14:31 POC ABG pO2 67.6 mmHg (83-108) L 08/03/20 21:00 ABG pO2 68.0 mm Hg (80.0-90.0) L 07/28/20 14:31 POC ABG HCO3 25.6 08/03/20 21:00 ABG O2 Saturation 93.5 (0-100) 08/03/20 21:00 PT/INR, D-dimer PT 15.3 Sec. (12.2-14.9) H 07/24/20 20:40 INR 1.21 (0.87-1.13) H 07/24/20 20:40 D-Dimer 6608.00 ng/mlDDU (0-234) H 07/03/20 14:50 Abnormal lab findings: Abnormal Labs 06/17/20 06/17/20 06/17/20 12:33 12:33 12:33 WBC 19.5 H RBC 5.18 H Hgb 15.5 H Hct MCHC RDW Plt Count Lymph % (Auto) 3.8 L [place] % (Auto) Lymph # (Auto) 0.7 L [place] # (Auto) Eos # (Auto) Baso # (Auto) Seg Neutrophils % Seg Neuts % (Manual) 99.0 H Lymphocytes % (Manual) 1.0 L Monocytes % (Manual) Basophils % (Manual) Nucleated RBC % Seg Neutrophils # 18.2 H Seg Neutrophils # Man 19.3 H Lymphocytes # (Manual) 0.2 L Monocytes # (Manual) Eosinophils # (Manual) Basophils # (Manual) PT 16.5 H INR 1.33 H APTT D-Dimer 1025.04 H Heparin Anti-Xa Level ABG pH POC ABG pCO2 POC ABG pO2 ABG pO2 ABG HCO3 ABG O2 Saturation ABG Base Excess ABG Hemoglobin ABG Oxyhemoglobin ABG Sodium ABG Potassium ABG Chloride ABG Glucose Oxyhemoglobin Carboxyhemoglobin Sodium 130 L Potassium 3.4 L Chloride 95.0 L Carbon Dioxide BUN 21 H Creatinine Glucose 137 H POC Glucose Lactic Acid Calcium 7.9 L Phosphorus Magnesium Ferritin Direct Bilirubin AST 84 H ALT 67 H Alkaline Phosphatase Lactate Dehydrogenase 437 H Total Creatine Kinase 310 H C-Reactive Protein 27.90 H Total Protein Albumin 2.9 L Triglycerides Arterial Blood Glucose Arterial Blood Ionized Calcium Urine Creatinine Urine Chloride Vancomycin Trough Coronavirus (PCR) Crossmatch 06/17/20 06/17/20 06/17/20 12:33 12:33 14:48 WBC RBC Hgb Hct MCHC RDW Plt Count Lymph % (Auto) [place] % (Auto) Lymph # (Auto) [place] # (Auto) Eos # (Auto) Baso # (Auto) Seg Neutrophils % Seg Neuts % (Manual) Lymphocytes % (Manual) Monocytes % (Manual) Basophils % (Manual) Nucleated RBC % Seg Neutrophils # Seg Neutrophils # Man Lymphocytes # (Manual) Monocytes # (Manual) Eosinophils # (Manual) Basophils # (Manual) PT INR APTT D-Dimer Heparin Anti-Xa Level ABG pH POC ABG pCO2 POC ABG pO2 ABG pO2 ABG HCO3 ABG O2 Saturation ABG Base Excess ABG Hemoglobin ABG Oxyhemoglobin ABG Sodium ABG Potassium ABG Chloride ABG Glucose Oxyhemoglobin Carboxyhemoglobin Sodium Potassium Chloride Carbon Dioxide BUN Creatinine Glucose POC Glucose Lactic Acid 2.50 H* 2.20 H* Calcium Phosphorus Magnesium Ferritin 2297.0 H Direct Bilirubin AST ALT Alkaline Phosphatase Lactate Dehydrogenase Total Creatine Kinase C-Reactive Protein Total Protein Albumin Triglycerides Arterial Blood Glucose Arterial Blood Ionized Calcium Urine Creatinine Urine Chloride Vancomycin Trough Coronavirus (PCR) Crossmatch 06/17/20 06/17/20 06/17/20 14:48 14:48 14:48 WBC RBC Hgb Hct MCHC RDW Plt Count Lymph % (Auto) [place] % (Auto) Lymph # (Auto) [place] # (Auto) Eos # (Auto) Baso # (Auto) Seg Neutrophils % Seg Neuts % (Manual) Lymphocytes % (Manual) Monocytes % (Manual) Basophils % (Manual) Nucleated RBC % Seg Neutrophils # Seg Neutrophils # Man Lymphocytes # (Manual) Monocytes # (Manual) Eosinophils # (Manual) Basophils # (Manual) PT INR APTT D-Dimer 939.89 H Heparin Anti-Xa Level ABG pH POC ABG pCO2 POC ABG pO2 ABG pO2 ABG HCO3 ABG O2 Saturation ABG Base Excess ABG Hemoglobin ABG Oxyhemoglobin ABG Sodium ABG Potassium ABG Chloride ABG Glucose Oxyhemoglobin Carboxyhemoglobin Sodium Potassium Chloride Carbon Dioxide BUN Creatinine Glucose 141 H POC Glucose Lactic Acid Calcium Phosphorus Magnesium Ferritin > 2000.0 H Direct Bilirubin AST ALT Alkaline Phosphatase Lactate Dehydrogenase 503 H Total Creatine Kinase C-Reactive Protein 24.70 H Total Protein Albumin Triglycerides Arterial Blood Glucose Arterial Blood Ionized Calcium Urine Creatinine Urine Chloride Vancomycin Trough Coronavirus (PCR) Crossmatch 06/17/20 06/17/20 06/17/20 16:54 19:39 23:43 WBC RBC Hgb Hct MCHC RDW Plt Count Lymph % (Auto) [place] % (Auto) Lymph # (Auto) [place] # (Auto) Eos # (Auto) Baso # (Auto) Seg Neutrophils % Seg Neuts % (Manual) Lymphocytes % (Manual) Monocytes % (Manual) Basophils % (Manual) Nucleated RBC % Seg Neutrophils # Seg Neutrophils # Man Lymphocytes # (Manual) Monocytes # (Manual) Eosinophils # (Manual) Basophils # (Manual) PT INR APTT D-Dimer Heparin Anti-Xa Level ABG pH 7.571 H POC ABG pCO2 24.3 L POC ABG pO2 41.6 L ABG pO2 ABG HCO3 ABG O2 Saturation ABG Base Excess ABG Hemoglobin ABG Oxyhemoglobin 84.0 L ABG Sodium 131.0 L ABG Potassium ABG Chloride ABG Glucose 163 H Oxyhemoglobin Carboxyhemoglobin Sodium Potassium Chloride Carbon Dioxide BUN Creatinine Glucose POC Glucose 185 H Lactic Acid 2.10 H* Calcium Phosphorus Magnesium Ferritin Direct Bilirubin AST ALT Alkaline Phosphatase Lactate Dehydrogenase Total Creatine Kinase C-Reactive Protein Total Protein Albumin Triglycerides Arterial Blood Glucose 163 H Arterial Blood Ionized Calcium 4.4 L Urine Creatinine Urine Chloride Vancomycin Trough Coronavirus (PCR) Crossmatch 06/18/20 06/18/2006/18/21 00:17 00:23 03:55 WBC RBC Hgb Hct MCHC RDW Plt Count Lymph % (Auto) [place] % (Auto) Lymph # (Auto) [place] # (Auto) Eos # (Auto) Baso # (Auto) Seg Neutrophils % Seg Neuts % (Manual) Lymphocytes % (Manual) Monocytes % (Manual) Basophils % (Manual) Nucleated RBC % Seg Neutrophils # Seg Neutrophils # Man Lymphocytes # (Manual) Monocytes # (Manual) Eosinophils # (Manual) Basophils # (Manual) PT INR APTT D-Dimer Heparin Anti-Xa Level ABG pH POC ABG pCO2 POC ABG pO2 56.5 L 48.3 L ABG pO2 ABG HCO3 ABG O2 Saturation ABG Base Excess ABG Hemoglobin ABG Oxyhemoglobin 86.3 L 81.7 L ABG Sodium 132.9 L 131.0 L ABG Potassium ABG Chloride ABG Glucose 189 H 161 H Oxyhemoglobin Carboxyhemoglobin 0.4 L Sodium Potassium Chloride Carbon Dioxide BUN Creatinine Glucose POC Glucose Lactic Acid 3.80 H* Calcium Phosphorus Magnesium Ferritin Direct Bilirubin AST ALT Alkaline Phosphatase Lactate Dehydrogenase Total Creatine Kinase C-Reactive Protein Total Protein Albumin Triglycerides Arterial Blood Glucose 189 H 161 H Arterial Blood Ionized Calcium 4.3 L 4.2 L Urine Creatinine Urine Chloride Vancomycin Trough Coronavirus (PCR) Crossmatch 06/18/20 06/18/20 06/18/20 05:39 05:39 05:39 WBC 26.2 H RBC Hgb Hct MCHC RDW Plt Count Lymph % (Auto) [place] % (Auto) Lymph # (Auto) [place] # (Auto) Eos # (Auto) Baso # (Auto) Seg Neutrophils % Seg Neuts % (Manual) 90.0 H Lymphocytes % (Manual) 5.0 L Monocytes % (Manual) Basophils % (Manual) Nucleated RBC % Seg Neutrophils # Seg Neutrophils # Man 23.6 H Lymphocytes # (Manual) Monocytes # (Manual) 1.3 H Eosinophils # (Manual) Basophils # (Manual) PT INR APTT D-Dimer Heparin Anti-Xa Level ABG pH POC ABG pCO2 POC ABG pO2 ABG pO2 ABG HCO3 ABG O2 Saturation ABG Base Excess ABG Hemoglobin ABG Oxyhemoglobin ABG Sodium ABG Potassium ABG Chloride ABG Glucose Oxyhemoglobin Carboxyhemoglobin Sodium 135 L Potassium Chloride 97.5 L Carbon Dioxide 21 L BUN 39 H Creatinine 1.7 H D Glucose 168 H POC Glucose Lactic Acid 3.40 H* Calcium 7.2 L Phosphorus Magnesium Ferritin Direct Bilirubin AST ALT Alkaline Phosphatase Lactate Dehydrogenase Total Creatine Kinase C-Reactive Protein Total Protein Albumin Triglycerides Arterial Blood Glucose Arterial Blood Ionized Calcium Urine Creatinine Urine Chloride Vancomycin Trough Coronavirus (PCR) Crossmatch 06/18/20 06/18/20 06/18/20 07:24 09:00 10:10 WBC RBC Hgb Hct MCHC RDW Plt Count Lymph % (Auto) [place] % (Auto) Lymph # (Auto) [place] # (Auto) Eos # (Auto) Baso # (Auto) Seg Neutrophils % Seg Neuts % (Manual) Lymphocytes % (Manual) Monocytes % (Manual) Basophils % (Manual) Nucleated RBC % Seg Neutrophils # Seg Neutrophils # Man Lymphocytes # (Manual) Monocytes # (Manual) Eosinophils # (Manual) Basophils # (Manual) PT INR APTT D-Dimer Heparin Anti-Xa Level ABG pH POC ABG pCO2 POC ABG pO2 ABG pO2 ABG HCO3 ABG O2 Saturation ABG Base Excess ABG Hemoglobin ABG Oxyhemoglobin ABG Sodium ABG Potassium ABG Chloride ABG Glucose Oxyhemoglobin Carboxyhemoglobin Sodium Potassium Chloride Carbon Dioxide BUN Creatinine Glucose POC Glucose Lactic Acid 2.90 H* 3.20 H* Calcium Phosphorus Magnesium Ferritin Direct Bilirubin AST ALT Alkaline Phosphatase Lactate Dehydrogenase Total Creatine Kinase C-Reactive Protein Total Protein Albumin Triglycerides Arterial Blood Glucose Arterial Blood Ionized Calcium Urine Creatinine Urine Chloride Vancomycin Trough Coronavirus (PCR) Positive A Crossmatch 06/18/20 06/18/20 06/18/20 11:58 14:43 15:00 WBC RBC Hgb Hct MCHC RDW Plt Count Lymph % (Auto) [place] % (Auto) Lymph # (Auto) [place] # (Auto) Eos # (Auto) Baso # (Auto) Seg Neutrophils % Seg Neuts % (Manual) Lymphocytes % (Manual) Monocytes % (Manual) Basophils % (Manual) Nucleated RBC % Seg Neutrophils # Seg Neutrophils # Man Lymphocytes # (Manual) Monocytes # (Manual) Eosinophils # (Manual) Basophils # (Manual) PT INR APTT D-Dimer Heparin Anti-Xa Level ABG pH 7.303 L POC ABG pCO2 POC ABG pO2 82.3 L ABG pO2 ABG HCO3 ABG O2 Saturation ABG Base Excess ABG Hemoglobin ABG Oxyhemoglobin ABG Sodium 135.3 L ABG Potassium ABG Chloride ABG Glucose 215 H Oxyhemoglobin Carboxyhemoglobin 0.3 L Sodium Potassium Chloride Carbon Dioxide BUN Creatinine Glucose POC Glucose 209 H Lactic Acid Calcium Phosphorus Magnesium Ferritin Direct Bilirubin AST ALT Alkaline Phosphatase Lactate Dehydrogenase Total Creatine Kinase C-Reactive Protein Total Protein Albumin Triglycerides Arterial Blood Glucose 215 H Arterial Blood Ionized Calcium 4.2 L Urine Creatinine 192.4 H Urine Chloride 31.1 L Vancomycin Trough Coronavirus (PCR) Crossmatch 06/18/20 06/18/20 06/18/20 17:16 19:44 20:33 WBC RBC Hgb Hct MCHC RDW Plt Count Lymph % (Auto) [place] % (Auto) Lymph # (Auto) [place] # (Auto) Eos # (Auto) Baso # (Auto) Seg Neutrophils % Seg Neuts % (Manual) Lymphocytes % (Manual) Monocytes % (Manual) Basophils % (Manual) Nucleated RBC % Seg Neutrophils # Seg Neutrophils # Man Lymphocytes # (Manual) Monocytes # (Manual) Eosinophils # (Manual) Basophils # (Manual) PT INR APTT D-Dimer Heparin Anti-Xa Level ABG pH POC ABG pCO2 POC ABG pO2 ABG pO2 ABG HCO3 ABG O2 Saturation ABG Base Excess ABG Hemoglobin ABG Oxyhemoglobin ABG Sodium ABG Potassium ABG Chloride ABG Glucose Oxyhemoglobin Carboxyhemoglobin Sodium Potassium Chloride Carbon Dioxide BUN Creatinine Glucose POC Glucose 182 H Lactic Acid 3.00 H* Calcium Phosphorus Magnesium 2.70 H Ferritin Direct Bilirubin AST ALT Alkaline Phosphatase Lactate Dehydrogenase Total Creatine Kinase C-Reactive Protein Total Protein Albumin Triglycerides Arterial Blood Glucose Arterial Blood Ionized Calcium Urine Creatinine Urine Chloride Vancomycin Trough Coronavirus (PCR) Crossmatch 06/18/20 06/19/20 06/19/20 23:43 04:00 04:00 WBC 31.6 H RBC Hgb Hct MCHC RDW Plt Count Lymph % (Auto) [place] % (Auto) Lymph # (Auto) [place] # (Auto) Eos # (Auto) Baso # (Auto) Seg Neutrophils % Seg Neuts % (Manual) 98.0 H Lymphocytes % (Manual) 0.5 L Monocytes % (Manual) Basophils % (Manual) Nucleated RBC % Seg Neutrophils # Seg Neutrophils # Man 31.0 H Lymphocytes # (Manual) 0.2 L Monocytes # (Manual) Eosinophils # (Manual) Basophils # (Manual) PT INR APTT D-Dimer Heparin Anti-Xa Level ABG pH POC ABG pCO2 POC ABG pO2 ABG pO2 ABG HCO3 ABG O2 Saturation ABG Base Excess ABG Hemoglobin ABG Oxyhemoglobin ABG Sodium ABG Potassium ABG Chloride ABG Glucose Oxyhemoglobin Carboxyhemoglobin Sodium Potassium Chloride Carbon Dioxide BUN 56 H Creatinine 1.6 H Glucose 176 H POC Glucose 149 H Lactic Acid Calcium 7.0 L Phosphorus Magnesium Ferritin Direct Bilirubin AST 244 H ALT 159 H Alkaline Phosphatase Lactate Dehydrogenase Total Creatine Kinase C-Reactive Protein Total Protein 4.9 L D Albumin 2.5 L Triglycerides Arterial Blood Glucose Arterial Blood Ionized Calcium Urine Creatinine Urine Chloride Vancomycin Trough Coronavirus (PCR) Crossmatch 06/19/20 06/19/20 06/19/20 04:00 05:44 11:42 WBC RBC Hgb Hct MCHC RDW Plt Count Lymph % (Auto) [place] % (Auto) Lymph # (Auto) [place] # (Auto) Eos # (Auto) Baso # (Auto) Seg Neutrophils % Seg Neuts % (Manual) Lymphocytes % (Manual) Monocytes % (Manual) Basophils % (Manual) Nucleated RBC % Seg Neutrophils # Seg Neutrophils # Man Lymphocytes # (Manual) Monocytes # (Manual) Eosinophils # (Manual) Basophils # (Manual) PT INR APTT D-Dimer Heparin Anti-Xa Level ABG pH 7.265 L POC ABG pCO2 51.8 H POC ABG pO2 65.1 L ABG pO2 ABG HCO3 ABG O2 Saturation ABG Base Excess ABG Hemoglobin ABG Oxyhemoglobin ABG Sodium ABG Potassium ABG Chloride ABG Glucose 184 H Oxyhemoglobin Carboxyhemoglobin Sodium Potassium Chloride Carbon Dioxide BUN Creatinine Glucose POC Glucose 156 H 191 H Lactic Acid Calcium Phosphorus Magnesium Ferritin Direct Bilirubin AST ALT Alkaline Phosphatase Lactate Dehydrogenase Total Creatine Kinase C-Reactive Protein Total Protein Albumin Triglycerides Arterial Blood Glucose 184 H Arterial Blood Ionized Calcium 4.3 L Urine Creatinine Urine Chloride Vancomycin Trough Coronavirus (PCR) Crossmatch 06/19/20 06/19/20 06/19/20 12:30 17:16 18:36 WBC RBC Hgb Hct MCHC RDW Plt Count Lymph % (Auto) [place] % (Auto) Lymph # (Auto) [place] # (Auto) Eos # (Auto) Baso # (Auto) Seg Neutrophils % Seg Neuts % (Manual) Lymphocytes % (Manual) Monocytes % (Manual) Basophils % (Manual) Nucleated RBC % Seg Neutrophils # Seg Neutrophils # Man Lymphocytes # (Manual) Monocytes # (Manual) Eosinophils # (Manual) Basophils # (Manual) PT 16.4 H INR 1.32 H APTT D-Dimer Heparin Anti-Xa Level ABG pH 7.088 L POC ABG pCO2 78.1 H POC ABG pO2 208.3 H ABG pO2 ABG HCO3 ABG O2 Saturation ABG Base Excess ABG Hemoglobin ABG Oxyhemoglobin 98.3 H ABG Sodium ABG Potassium 5.0 H ABG Chloride ABG Glucose 182 H Oxyhemoglobin Carboxyhemoglobin 0.4 L Sodium Potassium Chloride Carbon Dioxide BUN Creatinine Glucose POC Glucose 154 H Lactic Acid Calcium Phosphorus Magnesium Ferritin Direct Bilirubin AST ALT Alkaline Phosphatase Lactate Dehydrogenase Total Creatine Kinase C-Reactive Protein Total Protein Albumin Triglycerides Arterial Blood Glucose 182 H Arterial Blood Ionized Calcium 4.3 L Urine Creatinine Urine Chloride Vancomycin Trough Coronavirus (PCR) Crossmatch 06/19/20 06/20/20 06/20/20 23:32 03:00 05:19 WBC RBC Hgb Hct MCHC RDW Plt Count Lymph % (Auto) [place] % (Auto) Lymph # (Auto) [place] # (Auto) Eos # (Auto) Baso # (Auto) Seg Neutrophils % Seg Neuts % (Manual) Lymphocytes % (Manual) Monocytes % (Manual) Basophils % (Manual) Nucleated RBC % Seg Neutrophils # Seg Neutrophils # Man Lymphocytes # (Manual) Monocytes # (Manual) Eosinophils # (Manual) Basophils # (Manual) PT INR APTT D-Dimer Heparin Anti-Xa Level 0.77 H ABG pH POC ABG pCO2 POC ABG pO2 ABG pO2 ABG HCO3 ABG O2 Saturation ABG Base Excess ABG Hemoglobin ABG Oxyhemoglobin ABG Sodium ABG Potassium ABG Chloride ABG Glucose Oxyhemoglobin Carboxyhemoglobin Sodium Potassium Chloride Carbon Dioxide BUN Creatinine Glucose POC Glucose 201 H 190 H Lactic Acid Calcium Phosphorus Magnesium Ferritin Direct Bilirubin AST ALT Alkaline Phosphatase Lactate Dehydrogenase Total Creatine Kinase C-Reactive Protein Total Protein Albumin Triglycerides Arterial Blood Glucose Arterial Blood Ionized Calcium Urine Creatinine Urine Chloride Vancomycin Trough Coronavirus (PCR) Crossmatch 06/20/20 06/20/20 06/20/20 08:25 08:25 11:36 WBC RBC Hgb Hct MCHC RDW Plt Count Lymph % (Auto) [place] % (Auto) Lymph # (Auto) [place] # (Auto) Eos # (Auto) Baso # (Auto) Seg Neutrophils % Seg Neuts % (Manual) Lymphocytes % (Manual) Monocytes % (Manual) Basophils % (Manual) Nucleated RBC % Seg Neutrophils # Seg Neutrophils # Man Lymphocytes # (Manual) Monocytes # (Manual) Eosinophils # (Manual) Basophils # (Manual) PT INR APTT D-Dimer Heparin Anti-Xa Level ABG pH POC ABG pCO2 POC ABG pO2 ABG pO2 ABG HCO3 ABG O2 Saturation ABG Base Excess ABG Hemoglobin ABG Oxyhemoglobin ABG Sodium ABG Potassium ABG Chloride ABG Glucose Oxyhemoglobin Carboxyhemoglobin Sodium 135 L Potassium 5.4 H Chloride 109.2 H Carbon Dioxide 19 L BUN 68 H Creatinine 2.5 H D Glucose 201 H POC Glucose 184 H Lactic Acid Calcium 5.5 L* D Phosphorus Magnesium Ferritin Direct Bilirubin AST 123 H ALT 86 H Alkaline Phosphatase Lactate Dehydrogenase Total Creatine Kinase C-Reactive Protein Total Protein 4.6 L Albumin 1.5 L Triglycerides Arterial Blood Glucose Arterial Blood Ionized Calcium Urine Creatinine Urine Chloride Vancomycin Trough 22.7 H Coronavirus (PCR) Crossmatch 06/20/20 06/20/20 06/20/20 11:40 17:28 20:00 WBC RBC Hgb Hct MCHC RDW Plt Count Lymph % (Auto) [place] % (Auto) Lymph # (Auto) [place] # (Auto) Eos # (Auto) Baso # (Auto) Seg Neutrophils % Seg Neuts % (Manual) Lymphocytes % (Manual) Monocytes % (Manual) Basophils % (Manual) Nucleated RBC % Seg Neutrophils # Seg Neutrophils # Man Lymphocytes # (Manual) Monocytes # (Manual) Eosinophils # (Manual) Basophils # (Manual) PT INR APTT D-Dimer Heparin Anti-Xa Level 0.89 H ABG pH 7.099 L POC ABG pCO2 61.1 H POC ABG pO2 ABG pO2 ABG HCO3 ABG O2 Saturation ABG Base Excess ABG Hemoglobin ABG Oxyhemoglobin ABG Sodium ABG Potassium 5.0 H ABG Chloride 111.0 H ABG Glucose 200 H Oxyhemoglobin Carboxyhemoglobin 0.4 L Sodium Potassium Chloride Carbon Dioxide BUN Creatinine Glucose POC Glucose 165 H Lactic Acid Calcium Phosphorus Magnesium Ferritin Direct Bilirubin AST ALT Alkaline Phosphatase Lactate Dehydrogenase Total Creatine Kinase C-Reactive Protein Total Protein Albumin Triglycerides Arterial Blood Glucose 200 H Arterial Blood Ionized Calcium 4.2 L Urine Creatinine Urine Chloride Vancomycin Trough Coronavirus (PCR) Crossmatch 06/20/20 06/21/20 06/21/20 23:29 05:00 05:20 WBC RBC Hgb Hct MCHC RDW Plt Count Lymph % (Auto) [place] % (Auto) Lymph # (Auto) [place] # (Auto) Eos # (Auto) Baso # (Auto) Seg Neutrophils % Seg Neuts % (Manual) Lymphocytes % (Manual) Monocytes % (Manual) Basophils % (Manual) Nucleated RBC % Seg Neutrophils # Seg Neutrophils # Man Lymphocytes # (Manual) Monocytes # (Manual) Eosinophils # (Manual) Basophils # (Manual) PT INR APTT D-Dimer Heparin Anti-Xa Level ABG pH POC ABG pCO2 POC ABG pO2 ABG pO2 ABG HCO3 ABG O2 Saturation ABG Base Excess ABG Hemoglobin ABG Oxyhemoglobin ABG Sodium ABG Potassium ABG Chloride ABG Glucose Oxyhemoglobin Carboxyhemoglobin Sodium Potassium Chloride 112.0 H Carbon Dioxide 20 L BUN 92 H Creatinine 3.9 H D Glucose 214 H POC Glucose 145 H 191 H Lactic Acid Calcium 6.5 L D Phosphorus Magnesium Ferritin Direct Bilirubin AST 98 H ALT 84 H Alkaline Phosphatase Lactate Dehydrogenase Total Creatine Kinase C-Reactive Protein Total Protein 4.6 L Albumin 2.1 L Triglycerides 180 H Arterial Blood Glucose Arterial Blood Ionized Calcium Urine Creatinine Urine Chloride Vancomycin Trough Coronavirus (PCR) Crossmatch 06/21/20 06/21/20 06/21/20 08:56 11:12 12:43 WBC RBC Hgb Hct MCHC RDW Plt Count Lymph % (Auto) [place] % (Auto) Lymph # (Auto) [place] # (Auto) Eos # (Auto) Baso # (Auto) Seg Neutrophils % Seg Neuts % (Manual) Lymphocytes % (Manual) Monocytes % (Manual) Basophils % (Manual) Nucleated RBC % Seg Neutrophils # Seg Neutrophils # Man Lymphocytes # (Manual) Monocytes # (Manual) Eosinophils # (Manual) Basophils # (Manual) PT INR APTT D-Dimer Heparin Anti-Xa Level 0.28 L ABG pH 7.184 L POC ABG pCO2 48.3 H POC ABG pO2 172.1 H ABG pO2 ABG HCO3 ABG O2 Saturation ABG Base Excess ABG Hemoglobin ABG Oxyhemoglobin 98.7 H ABG Sodium ABG Potassium 4.9 H ABG Chloride 112.0 H ABG Glucose 196 H Oxyhemoglobin Carboxyhemoglobin 0.2 L Sodium Potassium Chloride Carbon Dioxide BUN Creatinine Glucose POC Glucose 177 H Lactic Acid Calcium Phosphorus Magnesium Ferritin Direct Bilirubin AST ALT Alkaline Phosphatase Lactate Dehydrogenase Total Creatine Kinase C-Reactive Protein Total Protein Albumin Triglycerides Arterial Blood Glucose 196 H Arterial Blood Ionized Calcium 4.1 L Urine Creatinine Urine Chloride Vancomycin Trough Coronavirus (PCR) Crossmatch 06/21/20 06/21/20 06/22/20 16:31 Unknown 00:12 WBC RBC Hgb Hct MCHC RDW Plt Count Lymph % (Auto) [place] % (Auto) Lymph # (Auto) [place] # (Auto) Eos # (Auto) Baso # (Auto) Seg Neutrophils % Seg Neuts % (Manual) Lymphocytes % (Manual) Monocytes % (Manual) Basophils % (Manual) Nucleated RBC % Seg Neutrophils # Seg Neutrophils # Man Lymphocytes # (Manual) Monocytes # (Manual) Eosinophils # (Manual) Basophils # (Manual) PT INR APTT D-Dimer Heparin Anti-Xa Level 0.78 H ABG pH POC ABG pCO2 POC ABG pO2 ABG pO2 ABG HCO3 ABG O2 Saturation ABG Base Excess ABG Hemoglobin ABG Oxyhemoglobin ABG Sodium ABG Potassium ABG Chloride ABG Glucose Oxyhemoglobin Carboxyhemoglobin Sodium Potassium Chloride Carbon Dioxide BUN Creatinine Glucose POC Glucose 150 H 173 H Lactic Acid Calcium Phosphorus Magnesium Ferritin Direct Bilirubin AST ALT Alkaline Phosphatase Lactate Dehydrogenase Total Creatine Kinase C-Reactive Protein Total Protein Albumin Triglycerides Arterial Blood Glucose Arterial Blood Ionized Calcium Urine Creatinine Urine Chloride Vancomycin Trough Coronavirus (PCR) Crossmatch 06/22/20 06/22/20 06/22/20 04:00 05:04 05:30 WBC 33.9 H RBC Hgb 11.7 L Hct 35.2 L MCHC RDW 15.8 H Plt Count Lymph % (Auto) [place] % (Auto) Lymph # (Auto) [place] # (Auto) Eos # (Auto) Baso # (Auto) Seg Neutrophils % Seg Neuts % (Manual) 93.0 H Lymphocytes % (Manual) 5.0 L Monocytes % (Manual) Basophils % (Manual) Nucleated RBC % Seg Neutrophils # Seg Neutrophils # Man 31.5 H Lymphocytes # (Manual) Monocytes # (Manual) Eosinophils # (Manual) Basophils # (Manual) PT INR APTT D-Dimer Heparin Anti-Xa Level ABG pH 7.169 L POC ABG pCO2 POC ABG pO2 ABG pO2 ABG HCO3 ABG O2 Saturation ABG Base Excess ABG Hemoglobin ABG Oxyhemoglobin ABG Sodium ABG Potassium 5.1 H ABG Chloride 112.0 H ABG Glucose 186 H Oxyhemoglobin Carboxyhemoglobin 0.3 L Sodium Potassium Chloride Carbon Dioxide BUN Creatinine Glucose POC Glucose 161 H Lactic Acid Calcium Phosphorus Magnesium Ferritin Direct Bilirubin AST ALT Alkaline Phosphatase Lactate Dehydrogenase Total Creatine Kinase C-Reactive Protein Total Protein Albumin Triglycerides Arterial Blood Glucose 186 H Arterial Blood Ionized Calcium 4.1 L Urine Creatinine Urine Chloride Vancomycin Trough Coronavirus (PCR) Crossmatch 06/22/20 06/22/20 06/22/20 05:30 11:39 13:27 WBC RBC Hgb Hct MCHC RDW Plt Count Lymph % (Auto) [place] % (Auto) Lymph # (Auto) [place] # (Auto) Eos # (Auto) Baso # (Auto) Seg Neutrophils % Seg Neuts % (Manual) Lymphocytes % (Manual) Monocytes % (Manual) Basophils % (Manual) Nucleated RBC % Seg Neutrophils # Seg Neutrophils # Man Lymphocytes # (Manual) Monocytes # (Manual) Eosinophils # (Manual) Basophils # (Manual) PT INR APTT D-Dimer Heparin Anti-Xa Level ABG pH POC ABG pCO2 POC ABG pO2 ABG pO2 ABG HCO3 ABG O2 Saturation ABG Base Excess ABG Hemoglobin ABG Oxyhemoglobin ABG Sodium ABG Potassium ABG Chloride ABG Glucose Oxyhemoglobin Carboxyhemoglobin Sodium Potassium 5.7 H Chloride 111.3 H Carbon Dioxide 18 L BUN 112 H Creatinine 5.0 H Glucose 173 H POC Glucose 172 H 176 H Lactic Acid Calcium 6.7 L Phosphorus Magnesium Ferritin Direct Bilirubin AST ALT Alkaline Phosphatase Lactate Dehydrogenase Total Creatine Kinase C-Reactive Protein Total Protein Albumin Triglycerides Arterial Blood Glucose Arterial Blood Ionized Calcium Urine Creatinine Urine Chloride Vancomycin Trough Coronavirus (PCR) Crossmatch 06/22/20 06/22/20 06/22/20 14:37 17:00 17:40 WBC RBC Hgb Hct MCHC RDW Plt Count Lymph % (Auto) [place] % (Auto) Lymph # (Auto) [place] # (Auto) Eos # (Auto) Baso # (Auto) Seg Neutrophils % Seg Neuts % (Manual) Lymphocytes % (Manual) Monocytes % (Manual) Basophils % (Manual) Nucleated RBC % Seg Neutrophils # Seg Neutrophils # Man Lymphocytes # (Manual) Monocytes # (Manual) Eosinophils # (Manual) Basophils # (Manual) PT INR APTT D-Dimer Heparin Anti-Xa Level 1.32 H ABG pH POC ABG pCO2 POC ABG pO2 ABG pO2 ABG HCO3 ABG O2 Saturation ABG Base Excess ABG Hemoglobin ABG Oxyhemoglobin ABG Sodium ABG Potassium ABG Chloride ABG Glucose Oxyhemoglobin Carboxyhemoglobin Sodium Potassium Chloride Carbon Dioxide BUN Creatinine Glucose POC Glucose 171 H Lactic Acid Calcium Phosphorus Magnesium Ferritin Direct Bilirubin AST ALT Alkaline Phosphatase Lactate Dehydrogenase Total Creatine Kinase C-Reactive Protein 5.30 H Total Protein Albumin Triglycerides Arterial Blood Glucose Arterial Blood Ionized Calcium Urine Creatinine Urine Chloride Vancomycin Trough Coronavirus (PCR) Crossmatch 06/22/20 06/23/20 06/23/20 23:36 02:13 02:41 WBC RBC Hgb Hct MCHC RDW Plt Count Lymph % (Auto) [place] % (Auto) Lymph # (Auto) [place] # (Auto) Eos # (Auto) Baso # (Auto) Seg Neutrophils % Seg Neuts % (Manual) Lymphocytes % (Manual) Monocytes % (Manual) Basophils % (Manual) Nucleated RBC % Seg Neutrophils # Seg Neutrophils # Man Lymphocytes # (Manual) Monocytes # (Manual) Eosinophils # (Manual) Basophils # (Manual) PT INR APTT D-Dimer Heparin Anti-Xa Level 0.21 L ABG pH 7.318 L POC ABG pCO2 POC ABG pO2 157.5 H ABG pO2 ABG HCO3 ABG O2 Saturation ABG Base Excess ABG Hemoglobin ABG Oxyhemoglobin ABG Sodium 135.6 L ABG Potassium 4.6 H ABG Chloride 110.0 H ABG Glucose 169 H Oxyhemoglobin Carboxyhemoglobin Sodium Potassium Chloride Carbon Dioxide BUN Creatinine Glucose POC Glucose 155 H Lactic Acid Calcium Phosphorus Magnesium Ferritin Direct Bilirubin AST ALT Alkaline Phosphatase Lactate Dehydrogenase Total Creatine Kinase C-Reactive Protein Total Protein Albumin Triglycerides Arterial Blood Glucose 169 H Arterial Blood Ionized Calcium Urine Creatinine Urine Chloride Vancomycin Trough Coronavirus (PCR) Crossmatch 06/23/20 06/23/20 06/23/20 04:00 04:00 05:24 WBC 27.4 H RBC Hgb 11.3 L Hct 33.8 L MCHC RDW Plt Count Lymph % (Auto) [place] % (Auto) Lymph # (Auto) [place] # (Auto) Eos # (Auto) Baso # (Auto) Seg Neutrophils % Seg Neuts % (Manual) 93.0 H Lymphocytes % (Manual) 1.0 L Monocytes % (Manual) Basophils % (Manual) Nucleated RBC % 1.0 H Seg Neutrophils # Seg Neutrophils # Man 25.5 H Lymphocytes # (Manual) 0.3 L Monocytes # (Manual) 1.1 H Eosinophils # (Manual) Basophils # (Manual) PT INR APTT D-Dimer Heparin Anti-Xa Level ABG pH POC ABG pCO2 POC ABG pO2 ABG pO2 ABG HCO3 ABG O2 Saturation ABG Base Excess ABG Hemoglobin ABG Oxyhemoglobin ABG Sodium ABG Potassium ABG Chloride ABG Glucose Oxyhemoglobin Carboxyhemoglobin Sodium Potassium Chloride 107.6 H Carbon Dioxide 20 L BUN 100 H Creatinine 4.7 H Glucose 168 H POC Glucose 151 H Lactic Acid Calcium Phosphorus Magnesium Ferritin Direct Bilirubin AST ALT Alkaline Phosphatase Lactate Dehydrogenase Total Creatine Kinase C-Reactive Protein Total Protein Albumin Triglycerides Arterial Blood Glucose Arterial Blood Ionized Calcium Urine Creatinine Urine Chloride Vancomycin Trough Coronavirus (PCR) Crossmatch 06/23/20 06/23/20 06/23/20 11:30 17:18 23:50 WBC RBC Hgb Hct MCHC RDW Plt Count Lymph % (Auto) [place] % (Auto) Lymph # (Auto) [place] # (Auto) Eos # (Auto) Baso # (Auto) Seg Neutrophils % Seg Neuts % (Manual) Lymphocytes % (Manual) Monocytes % (Manual) Basophils % (Manual) Nucleated RBC % Seg Neutrophils # Seg Neutrophils # Man Lymphocytes # (Manual) Monocytes # (Manual) Eosinophils # (Manual) Basophils # (Manual) PT INR APTT D-Dimer Heparin Anti-Xa Level ABG pH POC ABG pCO2 POC ABG pO2 ABG pO2 ABG HCO3 ABG O2 Saturation ABG Base Excess ABG Hemoglobin ABG Oxyhemoglobin ABG Sodium ABG Potassium ABG Chloride ABG Glucose Oxyhemoglobin Carboxyhemoglobin Sodium Potassium Chloride Carbon Dioxide BUN Creatinine Glucose POC Glucose 157 H 156 H 162 H Lactic Acid Calcium Phosphorus Magnesium Ferritin Direct Bilirubin AST ALT Alkaline Phosphatase Lactate Dehydrogenase Total Creatine Kinase C-Reactive Protein Total Protein Albumin Triglycerides Arterial Blood Glucose Arterial Blood Ionized Calcium Urine Creatinine Urine Chloride Vancomycin Trough Coronavirus (PCR) Crossmatch 06/24/20 06/24/20 06/24/20 04:41 05:57 06:30 WBC 34.3 H RBC Hgb 10.9 L Hct 32.6 L MCHC RDW Plt Count Lymph % (Auto) 2.0 L [place] % (Auto) Lymph # (Auto) 0.7 L [place] # (Auto) 1.2 H Eos # (Auto) Baso # (Auto) Seg Neutrophils % Seg Neuts % (Manual) 96.0 H Lymphocytes % (Manual) 3.0 L Monocytes % (Manual) Basophils % (Manual) Nucleated RBC % Seg Neutrophils # 32.3 H Seg Neutrophils # Man 32.9 H Lymphocytes # (Manual) 1.0 L Monocytes # (Manual) Eosinophils # (Manual) Basophils # (Manual) PT INR APTT D-Dimer Heparin Anti-Xa Level ABG pH POC ABG pCO2 POC ABG pO2 71.1 L ABG pO2 ABG HCO3 ABG O2 Saturation ABG Base Excess ABG Hemoglobin ABG Oxyhemoglobin 92.4 L ABG Sodium 115.6 L ABG Potassium ABG Chloride ABG Glucose 159 H Oxyhemoglobin Carboxyhemoglobin Sodium Potassium Chloride Carbon Dioxide BUN Creatinine Glucose POC Glucose 143 H Lactic Acid Calcium Phosphorus Magnesium Ferritin Direct Bilirubin AST ALT Alkaline Phosphatase Lactate Dehydrogenase Total Creatine Kinase C-Reactive Protein Total Protein Albumin Triglycerides Arterial Blood Glucose 159 H Arterial Blood Ionized Calcium 4.2 L Urine Creatinine Urine Chloride Vancomycin Trough Coronavirus (PCR) Crossmatch 06/24/20 06/24/20 06/24/20 07:03 09:37 11:56 WBC RBC Hgb Hct MCHC RDW Plt Count Lymph % (Auto) [place] % (Auto) Lymph # (Auto) [place] # (Auto) Eos # (Auto) Baso # (Auto) Seg Neutrophils % Seg Neuts % (Manual) Lymphocytes % (Manual) Monocytes % (Manual) Basophils % (Manual) Nucleated RBC % Seg Neutrophils # Seg Neutrophils # Man Lymphocytes # (Manual) Monocytes # (Manual) Eosinophils # (Manual) Basophils # (Manual) PT INR APTT D-Dimer Heparin Anti-Xa Level 0.26 L ABG pH POC ABG pCO2 POC ABG pO2 ABG pO2 ABG HCO3 ABG O2 Saturation ABG Base Excess ABG Hemoglobin ABG Oxyhemoglobin ABG Sodium ABG Potassium ABG Chloride ABG Glucose Oxyhemoglobin Carboxyhemoglobin Sodium Potassium 5.1 H Chloride Carbon Dioxide BUN 103 H Creatinine 5.0 H Glucose 163 H POC Glucose 149 H Lactic Acid Calcium 7.6 L Phosphorus Magnesium Ferritin Direct Bilirubin AST ALT Alkaline Phosphatase Lactate Dehydrogenase Total Creatine Kinase C-Reactive Protein Total Protein Albumin Triglycerides Arterial Blood Glucose Arterial Blood Ionized Calcium Urine Creatinine Urine Chloride Vancomycin Trough Coronavirus (PCR) Crossmatch 06/24/20 06/25/20 06/25/20 18:09 01:05 03:00 WBC RBC Hgb 10.6 L Hct 32.1 L MCHC RDW Plt Count Lymph % (Auto) [place] % (Auto) Lymph # (Auto) [place] # (Auto) Eos # (Auto) Baso # (Auto) Seg Neutrophils % Seg Neuts % (Manual) Lymphocytes % (Manual) Monocytes % (Manual) Basophils % (Manual) Nucleated RBC % Seg Neutrophils # Seg Neutrophils # Man Lymphocytes # (Manual) Monocytes # (Manual) Eosinophils # (Manual) Basophils # (Manual) PT INR APTT D-Dimer Heparin Anti-Xa Level ABG pH POC ABG pCO2 POC ABG pO2 ABG pO2 ABG HCO3 ABG O2 Saturation ABG Base Excess ABG Hemoglobin ABG Oxyhemoglobin ABG Sodium ABG Potassium ABG Chloride ABG Glucose Oxyhemoglobin Carboxyhemoglobin Sodium Potassium Chloride Carbon Dioxide BUN Creatinine Glucose POC Glucose 141 H 137 H Lactic Acid Calcium Phosphorus Magnesium Ferritin Direct Bilirubin AST ALT Alkaline Phosphatase Lactate Dehydrogenase Total Creatine Kinase C-Reactive Protein Total Protein Albumin Triglycerides Arterial Blood Glucose Arterial Blood Ionized Calcium Urine Creatinine Urine Chloride Vancomycin Trough Coronavirus (PCR) Crossmatch 06/25/20 06/25/20 06/25/20 03:48 05:17 12:08 WBC RBC Hgb Hct MCHC RDW Plt Count Lymph % (Auto) [place] % (Auto) Lymph # (Auto) [place] # (Auto) Eos # (Auto) Baso # (Auto) Seg Neutrophils % Seg Neuts % (Manual) Lymphocytes % (Manual) Monocytes % (Manual) Basophils % (Manual) Nucleated RBC % Seg Neutrophils # Seg Neutrophils # Man Lymphocytes # (Manual) Monocytes # (Manual) Eosinophils # (Manual) Basophils # (Manual) PT INR APTT D-Dimer Heparin Anti-Xa Level ABG pH POC ABG pCO2 29.4 L POC ABG pO2 67.1 L ABG pO2 ABG HCO3 ABG O2 Saturation ABG Base Excess ABG Hemoglobin 11.5 L ABG Oxyhemoglobin ABG Sodium 124.1 L ABG Potassium 4.6 H ABG Chloride ABG Glucose 159 H Oxyhemoglobin Carboxyhemoglobin Sodium Potassium Chloride Carbon Dioxide BUN Creatinine Glucose POC Glucose 149 H 150 H Lactic Acid Calcium Phosphorus Magnesium Ferritin Direct Bilirubin AST ALT Alkaline Phosphatase Lactate Dehydrogenase Total Creatine Kinase C-Reactive Protein Total Protein Albumin Triglycerides Arterial Blood Glucose 159 H Arterial Blood Ionized Calcium 4.2 L Urine Creatinine Urine Chloride Vancomycin Trough Coronavirus (PCR) Crossmatch 06/25/20 06/25/20 06/25/20 16:27 16:35 17:27 WBC RBC Hgb Hct MCHC RDW Plt Count Lymph % (Auto) [place] % (Auto) Lymph # (Auto) [place] # (Auto) Eos # (Auto) Baso # (Auto) Seg Neutrophils % Seg Neuts % (Manual) Lymphocytes % (Manual) Monocytes % (Manual) Basophils % (Manual) Nucleated RBC % Seg Neutrophils # Seg Neutrophils # Man Lymphocytes # (Manual) Monocytes # (Manual) Eosinophils # (Manual) Basophils # (Manual) PT INR APTT D-Dimer Heparin Anti-Xa Level < 0.10 L ABG pH POC ABG pCO2 POC ABG pO2 ABG pO2 ABG HCO3 ABG O2 Saturation ABG Base Excess ABG Hemoglobin ABG Oxyhemoglobin ABG Sodium ABG Potassium ABG Chloride ABG Glucose Oxyhemoglobin Carboxyhemoglobin Sodium Potassium Chloride Carbon Dioxide BUN Creatinine Glucose POC Glucose 143 H 156 H Lactic Acid Calcium Phosphorus Magnesium Ferritin Direct Bilirubin AST ALT Alkaline Phosphatase Lactate Dehydrogenase Total Creatine Kinase C-Reactive Protein Total Protein Albumin Triglycerides Arterial Blood Glucose Arterial Blood Ionized Calcium Urine Creatinine Urine Chloride Vancomycin Trough Coronavirus (PCR) Crossmatch 06/25/20 06/25/20 06/25/20 20:00 20:55 23:10 WBC 32.7 H RBC 3.06 L Hgb 9.0 L 9.5 L Hct 26.7 L 28.6 L MCHC RDW Plt Count Lymph % (Auto) [place] % (Auto) Lymph # (Auto) [place] # (Auto) Eos # (Auto) Baso # (Auto) Seg Neutrophils % Seg Neuts % (Manual) Lymphocytes % (Manual) 2.0 L Monocytes % (Manual) Basophils % (Manual) Nucleated RBC % Seg Neutrophils # Seg Neutrophils # Man 30.7 H Lymphocytes # (Manual) 0.7 L Monocytes # (Manual) 1.3 H Eosinophils # (Manual) Basophils # (Manual) PT 17.7 H INR 1.47 H APTT 65.8 H* D-Dimer Heparin Anti-Xa Level ABG pH POC ABG pCO2 POC ABG pO2 ABG pO2 ABG HCO3 ABG O2 Saturation ABG Base Excess ABG Hemoglobin ABG Oxyhemoglobin ABG Sodium ABG Potassium ABG Chloride ABG Glucose Oxyhemoglobin Carboxyhemoglobin Sodium Potassium Chloride Carbon Dioxide BUN Creatinine Glucose POC Glucose Lactic Acid Calcium Phosphorus Magnesium Ferritin Direct Bilirubin AST ALT Alkaline Phosphatase Lactate Dehydrogenase Total Creatine Kinase C-Reactive Protein Total Protein Albumin Triglycerides Arterial Blood Glucose Arterial Blood Ionized Calcium Urine Creatinine Urine Chloride Vancomycin Trough Coronavirus (PCR) Crossmatch 06/25/20 06/26/20 06/26/20 23:14 01:30 03:25 WBC RBC Hgb Hct MCHC RDW Plt Count Lymph % (Auto) [place] % (Auto) Lymph # (Auto) [place] # (Auto) Eos # (Auto) Baso # (Auto) Seg Neutrophils % Seg Neuts % (Manual) Lymphocytes % (Manual) Monocytes % (Manual) Basophils % (Manual) Nucleated RBC % Seg Neutrophils # Seg Neutrophils # Man Lymphocytes # (Manual) Monocytes # (Manual) Eosinophils # (Manual) Basophils # (Manual) PT INR APTT D-Dimer Heparin Anti-Xa Level < 0.10 L ABG pH POC ABG pCO2 POC ABG pO2 ABG pO2 ABG HCO3 ABG O2 Saturation ABG Base Excess ABG Hemoglobin 11.8 L ABG Oxyhemoglobin ABG Sodium 127.1 L ABG Potassium 5.4 H ABG Chloride ABG Glucose 155 H Oxyhemoglobin Carboxyhemoglobin 0.3 L Sodium Potassium Chloride Carbon Dioxide BUN Creatinine Glucose POC Glucose 148 H Lactic Acid Calcium Phosphorus Magnesium Ferritin Direct Bilirubin AST ALT Alkaline Phosphatase Lactate Dehydrogenase Total Creatine Kinase C-Reactive Protein Total Protein Albumin Triglycerides Arterial Blood Glucose 155 H Arterial Blood Ionized Calcium 4.2 L Urine Creatinine Urine Chloride Vancomycin Trough Coronavirus (PCR) Crossmatch 06/26/20 06/26/20 06/26/20 03:59 05:14 05:47 WBC 36.5 H RBC 3.26 L Hgb 9.7 L Hct 28.2 L MCHC RDW Plt Count Lymph % (Auto) [place] % (Auto) Lymph # (Auto) [place] # (Auto) Eos # (Auto) Baso # (Auto) Seg Neutrophils % Seg Neuts % (Manual) 92.0 H Lymphocytes % (Manual) 4.0 L Monocytes % (Manual) Basophils % (Manual) Nucleated RBC % Seg Neutrophils # Seg Neutrophils # Man 33.6 H Lymphocytes # (Manual) Monocytes # (Manual) Eosinophils # (Manual) Basophils # (Manual) PT INR APTT D-Dimer Heparin Anti-Xa Level ABG pH POC ABG pCO2 POC ABG pO2 ABG pO2 ABG HCO3 ABG O2 Saturation ABG Base Excess ABG Hemoglobin ABG Oxyhemoglobin ABG Sodium ABG Potassium ABG Chloride ABG Glucose Oxyhemoglobin Carboxyhemoglobin Sodium Potassium 5.9 H Chloride Carbon Dioxide 20 L BUN 144 H Creatinine 6.4 H Glucose 149 H POC Glucose 128 H Lactic Acid Calcium 7.6 L Phosphorus Magnesium Ferritin Direct Bilirubin AST ALT Alkaline Phosphatase Lactate Dehydrogenase Total Creatine Kinase C-Reactive Protein Total Protein Albumin Triglycerides Arterial Blood Glucose Arterial Blood Ionized Calcium Urine Creatinine Urine Chloride Vancomycin Trough Coronavirus (PCR) Crossmatch 06/26/20 06/26/20 06/26/20 05:47 12:47 17:42 WBC RBC Hgb Hct MCHC RDW Plt Count Lymph % (Auto) [place] % (Auto) Lymph # (Auto) [place] # (Auto) Eos # (Auto) Baso # (Auto) Seg Neutrophils % Seg Neuts % (Manual) Lymphocytes % (Manual) Monocytes % (Manual) Basophils % (Manual) Nucleated RBC % Seg Neutrophils # Seg Neutrophils # Man Lymphocytes # (Manual) Monocytes # (Manual) Eosinophils # (Manual) Basophils # (Manual) PT 17.4 H INR 1.44 H APTT D-Dimer Heparin Anti-Xa Level ABG pH POC ABG pCO2 POC ABG pO2 ABG pO2 ABG HCO3 ABG O2 Saturation ABG Base Excess ABG Hemoglobin ABG Oxyhemoglobin ABG Sodium ABG Potassium ABG Chloride ABG Glucose Oxyhemoglobin Carboxyhemoglobin Sodium Potassium Chloride Carbon Dioxide BUN Creatinine Glucose POC Glucose 124 H 127 H Lactic Acid Calcium Phosphorus Magnesium Ferritin Direct Bilirubin AST ALT Alkaline Phosphatase Lactate Dehydrogenase Total Creatine Kinase C-Reactive Protein Total Protein Albumin Triglycerides Arterial Blood Glucose Arterial Blood Ionized Calcium Urine Creatinine Urine Chloride Vancomycin Trough Coronavirus (PCR) Crossmatch 06/26/20 06/27/20 06/27/20 23:30 03:32 04:00 WBC RBC Hgb 8.7 L Hct 26.4 L MCHC RDW Plt Count Lymph % (Auto) [place] % (Auto) Lymph # (Auto) [place] # (Auto) Eos # (Auto) Baso # (Auto) Seg Neutrophils % Seg Neuts % (Manual) Lymphocytes % (Manual) Monocytes % (Manual) Basophils % (Manual) Nucleated RBC % Seg Neutrophils # Seg Neutrophils # Man Lymphocytes # (Manual) Monocytes # (Manual) Eosinophils # (Manual) Basophils # (Manual) PT INR APTT D-Dimer Heparin Anti-Xa Level ABG pH 7.298 L POC ABG pCO2 POC ABG pO2 ABG pO2 ABG HCO3 ABG O2 Saturation ABG Base Excess ABG Hemoglobin 9.6 L ABG Oxyhemoglobin ABG Sodium 124.4 L ABG Potassium 6.6 H ABG Chloride ABG Glucose 136 H Oxyhemoglobin Carboxyhemoglobin Sodium Potassium Chloride Carbon Dioxide BUN Creatinine Glucose POC Glucose 123 H Lactic Acid Calcium Phosphorus Magnesium Ferritin Direct Bilirubin AST ALT Alkaline Phosphatase Lactate Dehydrogenase Total Creatine Kinase C-Reactive Protein Total Protein Albumin Triglycerides Arterial Blood Glucose 136 H Arterial Blood Ionized Calcium 4.1 L Urine Creatinine Urine Chloride Vancomycin Trough Coronavirus (PCR) Crossmatch 06/27/20 06/27/20 06/27/20 05:26 10:14 11:58 WBC RBC Hgb Hct MCHC RDW Plt Count Lymph % (Auto) [place] % (Auto) Lymph # (Auto) [place] # (Auto) Eos # (Auto) Baso # (Auto) Seg Neutrophils % Seg Neuts % (Manual) Lymphocytes % (Manual) Monocytes % (Manual) Basophils % (Manual) Nucleated RBC % Seg Neutrophils # Seg Neutrophils # Man Lymphocytes # (Manual) Monocytes # (Manual) Eosinophils # (Manual) Basophils # (Manual) PT INR APTT D-Dimer Heparin Anti-Xa Level ABG pH POC ABG pCO2 POC ABG pO2 ABG pO2 ABG HCO3 ABG O2 Saturation ABG Base Excess ABG Hemoglobin ABG Oxyhemoglobin ABG Sodium ABG Potassium ABG Chloride ABG Glucose Oxyhemoglobin Carboxyhemoglobin Sodium 136 L Potassium 7.0 H* Chloride 97.8 L Carbon Dioxide BUN 172 H Creatinine 7.4 H Glucose 129 H POC Glucose 124 H 115 H Lactic Acid Calcium 7.6 L Phosphorus Magnesium Ferritin Direct Bilirubin AST ALT Alkaline Phosphatase Lactate Dehydrogenase Total Creatine Kinase C-Reactive Protein Total Protein Albumin Triglycerides Arterial Blood Glucose Arterial Blood Ionized Calcium Urine Creatinine Urine Chloride Vancomycin Trough Coronavirus (PCR) Crossmatch 06/27/20 06/27/20 06/27/20 17:32 18:30 23:24 WBC RBC Hgb Hct MCHC RDW Plt Count Lymph % (Auto) [place] % (Auto) Lymph # (Auto) [place] # (Auto) Eos # (Auto) Baso # (Auto) Seg Neutrophils % Seg Neuts % (Manual) Lymphocytes % (Manual) Monocytes % (Manual) Basophils % (Manual) Nucleated RBC % Seg Neutrophils # Seg Neutrophils # Man Lymphocytes # (Manual) Monocytes # (Manual) Eosinophils # (Manual) Basophils # (Manual) PT INR APTT D-Dimer Heparin Anti-Xa Level ABG pH POC ABG pCO2 POC ABG pO2 ABG pO2 ABG HCO3 ABG O2 Saturation ABG Base Excess ABG Hemoglobin ABG Oxyhemoglobin ABG Sodium ABG Potassium ABG Chloride ABG Glucose Oxyhemoglobin Carboxyhemoglobin Sodium Potassium 7.3 H* Chloride Carbon Dioxide BUN Creatinine Glucose POC Glucose 122 H 116 H Lactic Acid Calcium Phosphorus Magnesium Ferritin Direct Bilirubin AST ALT Alkaline Phosphatase Lactate Dehydrogenase Total Creatine Kinase C-Reactive Protein Total Protein Albumin Triglycerides Arterial Blood Glucose Arterial Blood Ionized Calcium Urine Creatinine Urine Chloride Vancomycin Trough Coronavirus (PCR) Crossmatch 06/28/20 06/28/20 06/28/20 00:00 02:16 05:37 WBC RBC Hgb Hct MCHC RDW Plt Count Lymph % (Auto) [place] % (Auto) Lymph # (Auto) [place] # (Auto) Eos # (Auto) Baso # (Auto) Seg Neutrophils % Seg Neuts % (Manual) Lymphocytes % (Manual) Monocytes % (Manual) Basophils % (Manual) Nucleated RBC % Seg Neutrophils # Seg Neutrophils # Man Lymphocytes # (Manual) Monocytes # (Manual) Eosinophils # (Manual) Basophils # (Manual) PT INR APTT D-Dimer Heparin Anti-Xa Level ABG pH POC ABG pCO2 POC ABG pO2 79.0 L ABG pO2 ABG HCO3 ABG O2 Saturation ABG Base Excess ABG Hemoglobin 11.7 L ABG Oxyhemoglobin ABG Sodium 128.1 L ABG Potassium 6.6 H ABG Chloride ABG Glucose 124 H Oxyhemoglobin Carboxyhemoglobin Sodium Potassium 7.3 H* Chloride Carbon Dioxide BUN Creatinine Glucose POC Glucose 115 H Lactic Acid Calcium Phosphorus Magnesium Ferritin Direct Bilirubin AST ALT Alkaline Phosphatase Lactate Dehydrogenase Total Creatine Kinase C-Reactive Protein Total Protein Albumin Triglycerides Arterial Blood Glucose 124 H Arterial Blood Ionized Calcium 4.2 L Urine Creatinine Urine Chloride Vancomycin Trough Coronavirus (PCR) Crossmatch 06/28/20 06/28/20 06/28/20 10:03 10:03 11:51 WBC 33.6 H RBC 3.03 L Hgb 8.9 L Hct 27.0 L MCHC RDW Plt Count Lymph % (Auto) [place] % (Auto) Lymph # (Auto) [place] # (Auto) Eos # (Auto) Baso # (Auto) Seg Neutrophils % Seg Neuts % (Manual) Lymphocytes % (Manual) Monocytes % (Manual) Basophils % (Manual) Nucleated RBC % Seg Neutrophils # Seg Neutrophils # Man Lymphocytes # (Manual) Monocytes # (Manual) Eosinophils # (Manual) Basophils # (Manual) PT INR APTT D-Dimer Heparin Anti-Xa Level ABG pH POC ABG pCO2 POC ABG pO2 ABG pO2 ABG HCO3 ABG O2 Saturation ABG Base Excess ABG Hemoglobin ABG Oxyhemoglobin ABG Sodium ABG Potassium ABG Chloride ABG Glucose Oxyhemoglobin Carboxyhemoglobin Sodium 136 L Potassium 6.5 H* Chloride Carbon Dioxide 20 L BUN 129 H Creatinine 5.8 H Glucose 113 H POC Glucose 107 H Lactic Acid Calcium 7.6 L Phosphorus Magnesium Ferritin Direct Bilirubin AST ALT Alkaline Phosphatase Lactate Dehydrogenase Total Creatine Kinase C-Reactive Protein Total Protein Albumin Triglycerides Arterial Blood Glucose Arterial Blood Ionized Calcium Urine Creatinine Urine Chloride Vancomycin Trough Coronavirus (PCR) Crossmatch 06/28/20 06/28/20 06/29/20 17:45 Unknown 03:15 WBC RBC Hgb Hct MCHC RDW Plt Count Lymph % (Auto) [place] % (Auto) Lymph # (Auto) [place] # (Auto) Eos # (Auto) Baso # (Auto) Seg Neutrophils % Seg Neuts % (Manual) Lymphocytes % (Manual) Monocytes % (Manual) Basophils % (Manual) Nucleated RBC % Seg Neutrophils # Seg Neutrophils # Man Lymphocytes # (Manual) Monocytes # (Manual) Eosinophils # (Manual) Basophils # (Manual) PT INR APTT D-Dimer Heparin Anti-Xa Level ABG pH POC ABG pCO2 POC ABG pO2 ABG pO2 ABG HCO3 ABG O2 Saturation ABG Base Excess ABG Hemoglobin 7.8 L ABG Oxyhemoglobin ABG Sodium 127.4 L ABG Potassium 5.5 H ABG Chloride 97.0 L ABG Glucose 96 H Oxyhemoglobin Carboxyhemoglobin Sodium Potassium 5.4 H Chloride Carbon Dioxide BUN Creatinine Glucose POC Glucose 117 H Lactic Acid Calcium Phosphorus Magnesium Ferritin Direct Bilirubin AST ALT Alkaline Phosphatase Lactate Dehydrogenase Total Creatine Kinase C-Reactive Protein Total Protein Albumin Triglycerides Arterial Blood Glucose 96 H Arterial Blood Ionized Calcium 4.0 L Urine Creatinine Urine Chloride Vancomycin Trough Coronavirus (PCR) Crossmatch 06/29/20 06/29/20 06/29/20 03:45 Unknown Unknown WBC RBC Hgb Hct MCHC RDW Plt Count Lymph % (Auto) [place] % (Auto) Lymph # (Auto) [place] # (Auto) Eos # (Auto) Baso # (Auto) Seg Neutrophils % Seg Neuts % (Manual) Lymphocytes % (Manual) Monocytes % (Manual) Basophils % (Manual) Nucleated RBC % Seg Neutrophils # Seg Neutrophils # Man Lymphocytes # (Manual) Monocytes # (Manual) Eosinophils # (Manual) Basophils # (Manual) PT INR APTT D-Dimer Heparin Anti-Xa Level ABG pH POC ABG pCO2 POC ABG pO2 ABG pO2 ABG HCO3 ABG O2 Saturation ABG Base Excess ABG Hemoglobin ABG Oxyhemoglobin ABG Sodium ABG Potassium ABG Chloride ABG Glucose Oxyhemoglobin Carboxyhemoglobin Sodium 135 L Potassium 6.0 H 6.1 H* Chloride 94.8 L Carbon Dioxide BUN 109 H 114 H Creatinine 5.5 H Glucose POC Glucose Lactic Acid Calcium 7.4 L Phosphorus Magnesium Ferritin Direct Bilirubin AST 47 H ALT Alkaline Phosphatase Lactate Dehydrogenase Total Creatine Kinase C-Reactive Protein Total Protein 4.9 L Albumin 2.2 L Triglycerides Arterial Blood Glucose Arterial Blood Ionized Calcium Urine Creatinine Urine Chloride Vancomycin Trough Coronavirus (PCR) Crossmatch 06/29/20 06/29/20 06/30/20 Unknown Unknown 03:32 WBC 20.7 H RBC 2.57 L Hgb 7.6 L Hct 23.0 L MCHC RDW Plt Count Lymph % (Auto) [place] % (Auto) Lymph # (Auto) [place] # (Auto) Eos # (Auto) Baso # (Auto) Seg Neutrophils % Seg Neuts % (Manual) Lymphocytes % (Manual) Monocytes % (Manual) Basophils % (Manual) Nucleated RBC % Seg Neutrophils # Seg Neutrophils # Man Lymphocytes # (Manual) Monocytes # (Manual) Eosinophils # (Manual) Basophils # (Manual) PT INR APTT D-Dimer Heparin Anti-Xa Level ABG pH POC ABG pCO2 POC ABG pO2 ABG pO2 ABG HCO3 ABG O2 Saturation ABG Base Excess ABG Hemoglobin 11.4 L ABG Oxyhemoglobin ABG Sodium 130.1 L ABG Potassium 5.0 H ABG Chloride ABG Glucose Oxyhemoglobin Carboxyhemoglobin Sodium Potassium Chloride Carbon Dioxide BUN Creatinine Glucose POC Glucose Lactic Acid Calcium Phosphorus Magnesium Ferritin Direct Bilirubin AST ALT Alkaline Phosphatase Lactate Dehydrogenase Total Creatine Kinase 618 H C-Reactive Protein Total Protein Albumin Triglycerides Arterial Blood Glucose Arterial Blood Ionized Calcium 3.9 L Urine Creatinine Urine Chloride Vancomycin Trough Coronavirus (PCR) Crossmatch 06/30/20 06/30/20 06/30/20 03:50 03:50 11:39 WBC 13.1 H RBC Hgb Hct MCHC RDW Plt Count Lymph % (Auto) [place] % (Auto) Lymph # (Auto) [place] # (Auto) Eos # (Auto) Baso # (Auto) Seg Neutrophils % Seg Neuts % (Manual) 95.0 H Lymphocytes % (Manual) 3.0 L Monocytes % (Manual) Basophils % (Manual) Nucleated RBC % Seg Neutrophils # Seg Neutrophils # Man 12.4 H Lymphocytes # (Manual) 0.4 L Monocytes # (Manual) Eosinophils # (Manual) Basophils # (Manual) PT INR APTT D-Dimer Heparin Anti-Xa Level ABG pH POC ABG pCO2 POC ABG pO2 ABG pO2 ABG HCO3 ABG O2 Saturation ABG Base Excess ABG Hemoglobin ABG Oxyhemoglobin ABG Sodium ABG Potassium ABG Chloride ABG Glucose Oxyhemoglobin Carboxyhemoglobin Sodium 135 L Potassium 5.4 H D Chloride 93.6 L Carbon Dioxide BUN 85 H Creatinine 4.6 H Glucose POC Glucose 111 H Lactic Acid Calcium 7.1 L Phosphorus 9.40 H Magnesium Ferritin Direct Bilirubin AST ALT Alkaline Phosphatase Lactate Dehydrogenase Total Creatine Kinase C-Reactive Protein Total Protein Albumin Triglycerides Arterial Blood Glucose Arterial Blood Ionized Calcium Urine Creatinine Urine Chloride Vancomycin Trough Coronavirus (PCR) Crossmatch 06/30/20 06/30/20 07/01/20 13:12 Unknown 03:19 WBC RBC Hgb 7.8 L D Hct 23.2 L D MCHC RDW Plt Count Lymph % (Auto) [place] % (Auto) Lymph # (Auto) [place] # (Auto) Eos # (Auto) Baso # (Auto) Seg Neutrophils % Seg Neuts % (Manual) Lymphocytes % (Manual) Monocytes % (Manual) Basophils % (Manual) Nucleated RBC % Seg Neutrophils # Seg Neutrophils # Man Lymphocytes # (Manual) Monocytes # (Manual) Eosinophils # (Manual) Basophils # (Manual) PT INR APTT D-Dimer Heparin Anti-Xa Level ABG pH 7.461 H POC ABG pCO2 POC ABG pO2 77.2 L ABG pO2 ABG HCO3 ABG O2 Saturation ABG Base Excess ABG Hemoglobin 6.9 L ABG Oxyhemoglobin ABG Sodium 128.5 L ABG Potassium ABG Chloride 97.0 L ABG Glucose Oxyhemoglobin Carboxyhemoglobin Sodium Potassium Chloride Carbon Dioxide BUN Creatinine Glucose POC Glucose Lactic Acid Calcium Phosphorus Magnesium Ferritin Direct Bilirubin AST ALT Alkaline Phosphatase Lactate Dehydrogenase Total Creatine Kinase C-Reactive Protein Total Protein Albumin Triglycerides Arterial Blood Glucose Arterial Blood Ionized Calcium 3.7 L Urine Creatinine Urine Chloride Vancomycin Trough Coronavirus (PCR) Positive A Crossmatch 07/01/20 07/01/20 07/01/20 06:00 06:00 11:04 WBC 16.7 H RBC 2.16 L Hgb 6.4 L Hct 19.2 L* MCHC RDW Plt Count Lymph % (Auto) [place] % (Auto) Lymph # (Auto) [place] # (Auto) Eos # (Auto) Baso # (Auto) Seg Neutrophils % Seg Neuts % (Manual) Lymphocytes % (Manual) Monocytes % (Manual) Basophils % (Manual) Nucleated RBC % Seg Neutrophils # Seg Neutrophils # Man Lymphocytes # (Manual) Monocytes # (Manual) Eosinophils # (Manual) Basophils # (Manual) PT INR APTT D-Dimer Heparin Anti-Xa Level ABG pH POC ABG pCO2 POC ABG pO2 ABG pO2 ABG HCO3 ABG O2 Saturation ABG Base Excess ABG Hemoglobin ABG Oxyhemoglobin ABG Sodium ABG Potassium ABG Chloride ABG Glucose Oxyhemoglobin Carboxyhemoglobin Sodium 136 L Potassium Chloride 95.8 L Carbon Dioxide BUN 72 H Creatinine 4.3 H Glucose POC Glucose Lactic Acid Calcium 6.7 L Phosphorus Magnesium Ferritin Direct Bilirubin AST ALT Alkaline Phosphatase Lactate Dehydrogenase Total Creatine Kinase C-Reactive Protein Total Protein Albumin Triglycerides 250 H Arterial Blood Glucose Arterial Blood Ionized Calcium Urine Creatinine Urine Chloride Vancomycin Trough Coronavirus (PCR) Crossmatch See Detail 07/02/20 07/02/20 07/02/20 04:44 06:00 11:33 WBC 14.6 H RBC 2.47 L Hgb 7.4 L Hct 21.8 L MCHC RDW Plt Count Lymph % (Auto) [place] % (Auto) Lymph # (Auto) [place] # (Auto) Eos # (Auto) Baso # (Auto) Seg Neutrophils % Seg Neuts % (Manual) Lymphocytes % (Manual) Monocytes % (Manual) Basophils % (Manual) Nucleated RBC % Seg Neutrophils # Seg Neutrophils # Man Lymphocytes # (Manual) Monocytes # (Manual) Eosinophils # (Manual) Basophils # (Manual) PT INR APTT D-Dimer Heparin Anti-Xa Level ABG pH 7.457 H POC ABG pCO2 POC ABG pO2 79.4 L ABG pO2 ABG HCO3 ABG O2 Saturation ABG Base Excess ABG Hemoglobin 8.5 L ABG Oxyhemoglobin ABG Sodium 128.4 L ABG Potassium ABG Chloride 97.0 L ABG Glucose 100 H Oxyhemoglobin Carboxyhemoglobin Sodium 133 L Potassium 5.2 H Chloride 93.3 L Carbon Dioxide BUN 66 H Creatinine 4.1 H Glucose 102 H POC Glucose Lactic Acid Calcium 7.2 L Phosphorus Magnesium Ferritin Direct Bilirubin AST ALT Alkaline Phosphatase Lactate Dehydrogenase Total Creatine Kinase C-Reactive Protein Total Protein Albumin Triglycerides Arterial Blood Glucose 100 H Arterial Blood Ionized Calcium 3.9 L Urine Creatinine Urine Chloride Vancomycin Trough Coronavirus (PCR) Crossmatch 07/02/20 07/03/20 07/03/20 11:33 03:54 09:15 WBC 16.6 H RBC 2.44 L Hgb 7.3 L Hct 21.4 L MCHC RDW Plt Count Lymph % (Auto) [place] % (Auto) Lymph # (Auto) [place] # (Auto) Eos # (Auto) Baso # (Auto) Seg Neutrophils % Seg Neuts % (Manual) Lymphocytes % (Manual) Monocytes % (Manual) Basophils % (Manual) Nucleated RBC % Seg Neutrophils # Seg Neutrophils # Man Lymphocytes # (Manual) Monocytes # (Manual) Eosinophils # (Manual) Basophils # (Manual) PT INR APTT D-Dimer Heparin Anti-Xa Level ABG pH POC ABG pCO2 POC ABG pO2 66.1 L ABG pO2 ABG HCO3 ABG O2 Saturation ABG Base Excess ABG Hemoglobin 8.0 L ABG Oxyhemoglobin ABG Sodium 124.6 L ABG Potassium 5.5 H ABG Chloride 96.0 L ABG Glucose 111 H Oxyhemoglobin Carboxyhemoglobin Sodium Potassium Chloride Carbon Dioxide BUN Creatinine Glucose POC Glucose Lactic Acid Calcium Phosphorus Magnesium Ferritin Direct Bilirubin 0.7 H AST 94 H ALT 60 H Alkaline Phosphatase Lactate Dehydrogenase Total Creatine Kinase C-Reactive Protein Total Protein 4.4 L Albumin 1.9 L Triglycerides Arterial Blood Glucose 111 H Arterial Blood Ionized Calcium 3.8 L Urine Creatinine Urine Chloride Vancomycin Trough Coronavirus (PCR) Crossmatch 07/03/20 07/03/20 07/03/20 09:15 10:10 14:50 WBC RBC Hgb Hct MCHC RDW Plt Count Lymph % (Auto) [place] % (Auto) Lymph # (Auto) [place] # (Auto) Eos # (Auto) Baso # (Auto) Seg Neutrophils % Seg Neuts % (Manual) Lymphocytes % (Manual) Monocytes % (Manual) Basophils % (Manual) Nucleated RBC % Seg Neutrophils # Seg Neutrophils # Man Lymphocytes # (Manual) Monocytes # (Manual) Eosinophils # (Manual) Basophils # (Manual) PT INR APTT D-Dimer 6608.00 H Heparin Anti-Xa Level ABG pH POC ABG pCO2 POC ABG pO2 ABG pO2 ABG HCO3 ABG O2 Saturation ABG Base Excess ABG Hemoglobin ABG Oxyhemoglobin ABG Sodium ABG Potassium ABG Chloride ABG Glucose Oxyhemoglobin Carboxyhemoglobin Sodium 133 L Potassium 6.2 H* Chloride 93.1 L Carbon Dioxide BUN 89 H Creatinine 5.1 H Glucose POC Glucose Lactic Acid Calcium 7.0 L Phosphorus Magnesium Ferritin Direct Bilirubin AST ALT Alkaline Phosphatase Lactate Dehydrogenase Total Creatine Kinase C-Reactive Protein Total Protein Albumin Triglycerides Arterial Blood Glucose Arterial Blood Ionized Calcium Urine Creatinine Urine Chloride Vancomycin Trough Coronavirus (PCR) Positive A Crossmatch 07/03/20 07/03/20 07/03/20 14:50 14:50 14:50 WBC RBC Hgb Hct MCHC RDW Plt Count Lymph % (Auto) [place] % (Auto) Lymph # (Auto) [place] # (Auto) Eos # (Auto) Baso # (Auto) Seg Neutrophils % Seg Neuts % (Manual) Lymphocytes % (Manual) Monocytes % (Manual) Basophils % (Manual) Nucleated RBC % Seg Neutrophils # Seg Neutrophils # Man Lymphocytes # (Manual) Monocytes # (Manual) Eosinophils # (Manual) Basophils # (Manual) PT INR APTT D-Dimer Heparin Anti-Xa Level ABG pH POC ABG pCO2 POC ABG pO2 ABG pO2 ABG HCO3 ABG O2 Saturation ABG Base Excess ABG Hemoglobin ABG Oxyhemoglobin ABG Sodium ABG Potassium ABG Chloride ABG Glucose Oxyhemoglobin Carboxyhemoglobin Sodium Potassium Chloride Carbon Dioxide BUN Creatinine Glucose POC Glucose Lactic Acid < 0.20 L Calcium Phosphorus Magnesium Ferritin 1171.0 H Direct Bilirubin AST ALT Alkaline Phosphatase Lactate Dehydrogenase 525 H Total Creatine Kinase C-Reactive Protein 31.50 H Total Protein Albumin Triglycerides Arterial Blood Glucose Arterial Blood Ionized Calcium Urine Creatinine Urine Chloride Vancomycin Trough Coronavirus (PCR) Crossmatch 07/03/20 07/04/20 07/04/20 16:47 05:20 05:20 WBC 11.8 H RBC 2.32 L Hgb 6.7 L Hct 20.8 L MCHC RDW Plt Count Lymph % (Auto) 2.6 L [place] % (Auto) Lymph # (Auto) 0.3 L [place] # (Auto) Eos # (Auto) Baso # (Auto) Seg Neutrophils % Seg Neuts % (Manual) Lymphocytes % (Manual) Monocytes % (Manual) Basophils % (Manual) Nucleated RBC % Seg Neutrophils # 11.0 H Seg Neutrophils # Man Lymphocytes # (Manual) Monocytes # (Manual) Eosinophils # (Manual) Basophils # (Manual) PT INR APTT D-Dimer Heparin Anti-Xa Level ABG pH POC ABG pCO2 POC ABG pO2 ABG pO2 ABG HCO3 ABG O2 Saturation ABG Base Excess ABG Hemoglobin ABG Oxyhemoglobin ABG Sodium ABG Potassium ABG Chloride ABG Glucose Oxyhemoglobin Carboxyhemoglobin Sodium Potassium 6.0 H Chloride 97.8 L Carbon Dioxide BUN 75 H Creatinine 4.5 H Glucose 121 H POC Glucose 107 H Lactic Acid Calcium 7.9 L Phosphorus Magnesium Ferritin Direct Bilirubin AST ALT Alkaline Phosphatase Lactate Dehydrogenase Total Creatine Kinase C-Reactive Protein Total Protein Albumin Triglycerides Arterial Blood Glucose Arterial Blood Ionized Calcium Urine Creatinine Urine Chloride Vancomycin Trough Coronavirus (PCR) Crossmatch 07/04/20 07/04/20 07/04/20 05:20 05:50 09:25 WBC RBC Hgb Hct MCHC RDW Plt Count Lymph % (Auto) [place] % (Auto) Lymph # (Auto) [place] # (Auto) Eos # (Auto) Baso # (Auto) Seg Neutrophils % Seg Neuts % (Manual) Lymphocytes % (Manual) Monocytes % (Manual) Basophils % (Manual) Nucleated RBC % Seg Neutrophils # Seg Neutrophils # Man Lymphocytes # (Manual) Monocytes # (Manual) Eosinophils # (Manual) Basophils # (Manual) PT INR APTT D-Dimer Heparin Anti-Xa Level ABG pH 7.324 L POC ABG pCO2 POC ABG pO2 ABG pO2 98.9 H ABG HCO3 26.8 H ABG O2 Saturation ABG Base Excess ABG Hemoglobin < 5.1 L ABG Oxyhemoglobin ABG Sodium ABG Potassium ABG Chloride ABG Glucose Oxyhemoglobin Carboxyhemoglobin Sodium Potassium Chloride Carbon Dioxide BUN Creatinine Glucose POC Glucose 114 H Lactic Acid Calcium Phosphorus Magnesium Ferritin Direct Bilirubin AST ALT Alkaline Phosphatase Lactate Dehydrogenase Total Creatine Kinase C-Reactive Protein Total Protein Albumin Triglycerides Arterial Blood Glucose Arterial Blood Ionized Calcium Urine Creatinine Urine Chloride Vancomycin Trough Coronavirus (PCR) Crossmatch See Detail 07/04/20 07/04/20 07/04/20 12:33 17:41 23:04 WBC RBC Hgb Hct MCHC RDW Plt Count Lymph % (Auto) [place] % (Auto) Lymph # (Auto) [place] # (Auto) Eos # (Auto) Baso # (Auto) Seg Neutrophils % Seg Neuts % (Manual) Lymphocytes % (Manual) Monocytes % (Manual) Basophils % (Manual) Nucleated RBC % Seg Neutrophils # Seg Neutrophils # Man Lymphocytes # (Manual) Monocytes # (Manual) Eosinophils # (Manual) Basophils # (Manual) PT INR APTT D-Dimer Heparin Anti-Xa Level ABG pH POC ABG pCO2 POC ABG pO2 ABG pO2 ABG HCO3 ABG O2 Saturation ABG Base Excess ABG Hemoglobin ABG Oxyhemoglobin ABG Sodium ABG Potassium ABG Chloride ABG Glucose Oxyhemoglobin Carboxyhemoglobin Sodium Potassium Chloride Carbon Dioxide BUN Creatinine Glucose POC Glucose 119 H 109 H 116 H Lactic Acid Calcium Phosphorus Magnesium Ferritin Direct Bilirubin AST ALT Alkaline Phosphatase Lactate Dehydrogenase Total Creatine Kinase C-Reactive Protein Total Protein Albumin Triglycerides Arterial Blood Glucose Arterial Blood Ionized Calcium Urine Creatinine Urine Chloride Vancomycin Trough Coronavirus (PCR) Crossmatch 07/05/20 07/05/20 07/05/20 04:30 08:21 08:21 WBC RBC 2.77 L Hgb 7.9 L Hct 23.9 L MCHC RDW 16.7 H Plt Count Lymph % (Auto) 7.5 L [place] % (Auto) Lymph # (Auto) 0.7 L [place] # (Auto) Eos # (Auto) Baso # (Auto) Seg Neutrophils % 85.8 H Seg Neuts % (Manual) Lymphocytes % (Manual) Monocytes % (Manual) Basophils % (Manual) Nucleated RBC % Seg Neutrophils # 7.8 H Seg Neutrophils # Man Lymphocytes # (Manual) Monocytes # (Manual) Eosinophils # (Manual) Basophils # (Manual) PT INR APTT D-Dimer Heparin Anti-Xa Level ABG pH 7.295 L POC ABG pCO2 POC ABG pO2 ABG pO2 151.9 H ABG HCO3 26.8 H ABG O2 Saturation ABG Base Excess ABG Hemoglobin 7.3 L ABG Oxyhemoglobin ABG Sodium ABG Potassium ABG Chloride ABG Glucose Oxyhemoglobin Carboxyhemoglobin Sodium Potassium Chloride Carbon Dioxide BUN Creatinine Glucose POC Glucose Lactic Acid Calcium Phosphorus Magnesium Ferritin Direct Bilirubin AST ALT Alkaline Phosphatase Lactate Dehydrogenase Total Creatine Kinase C-Reactive Protein Total Protein Albumin Triglycerides 258 H Arterial Blood Glucose Arterial Blood Ionized Calcium Urine Creatinine Urine Chloride Vancomycin Trough Coronavirus (PCR) Crossmatch 07/05/20 07/05/20 07/06/20 08:21 12:12 04:29 WBC RBC Hgb Hct MCHC RDW Plt Count Lymph % (Auto) [place] % (Auto) Lymph # (Auto) [place] # (Auto) Eos # (Auto) Baso # (Auto) Seg Neutrophils % Seg Neuts % (Manual) Lymphocytes % (Manual) Monocytes % (Manual) Basophils % (Manual) Nucleated RBC % Seg Neutrophils # Seg Neutrophils # Man Lymphocytes # (Manual) Monocytes # (Manual) Eosinophils # (Manual) Basophils # (Manual) PT INR APTT D-Dimer Heparin Anti-Xa Level ABG pH 7.291 L POC ABG pCO2 51.3 H POC ABG pO2 ABG pO2 ABG HCO3 ABG O2 Saturation ABG Base Excess ABG Hemoglobin 8.5 L ABG Oxyhemoglobin ABG Sodium 129.6 L ABG Potassium 4.8 H ABG Chloride 96.0 L ABG Glucose Oxyhemoglobin Carboxyhemoglobin Sodium 133 L Potassium 5.6 H Chloride 94.4 L Carbon Dioxide BUN 80 H Creatinine 4.2 H Glucose 114 H POC Glucose 106 H Lactic Acid Calcium 7.6 L Phosphorus Magnesium Ferritin Direct Bilirubin 0.5 H AST 75 H ALT 86 H Alkaline Phosphatase Lactate Dehydrogenase Total Creatine Kinase C-Reactive Protein Total Protein 5.6 L D Albumin 1.9 L Triglycerides Arterial Blood Glucose Arterial Blood Ionized Calcium 4.2 L Urine Creatinine Urine Chloride Vancomycin Trough Coronavirus (PCR) Crossmatch 07/06/20 07/06/20 07/06/20 11:35 11:35 12:16 WBC RBC 2.54 L Hgb 7.5 L Hct 21.5 L MCHC 35 H RDW 15.7 H Plt Count Lymph % (Auto) [place] % (Auto) Lymph # (Auto) [place] # (Auto) Eos # (Auto) Baso # (Auto) Seg Neutrophils % Seg Neuts % (Manual) Lymphocytes % (Manual) Monocytes % (Manual) Basophils % (Manual) Nucleated RBC % Seg Neutrophils # Seg Neutrophils # Man Lymphocytes # (Manual) Monocytes # (Manual) Eosinophils # (Manual) Basophils # (Manual) PT INR APTT D-Dimer Heparin Anti-Xa Level ABG pH POC ABG pCO2 POC ABG pO2 ABG pO2 ABG HCO3 ABG O2 Saturation ABG Base Excess ABG Hemoglobin ABG Oxyhemoglobin ABG Sodium ABG Potassium ABG Chloride ABG Glucose Oxyhemoglobin Carboxyhemoglobin Sodium 130 L Potassium Chloride 92.2 L Carbon Dioxide 19 L D BUN 107 H Creatinine 5.1 H Glucose 106 H POC Glucose 106 H Lactic Acid Calcium 7.5 L Phosphorus Magnesium Ferritin Direct Bilirubin AST ALT Alkaline Phosphatase Lactate Dehydrogenase Total Creatine Kinase C-Reactive Protein Total Protein Albumin Triglycerides Arterial Blood Glucose Arterial Blood Ionized Calcium Urine Creatinine Urine Chloride Vancomycin Trough Coronavirus (PCR) Crossmatch 07/06/20 07/06/20 07/06/20 17:01 21:56 23:41 WBC RBC Hgb Hct MCHC RDW Plt Count Lymph % (Auto) [place] % (Auto) Lymph # (Auto) [place] # (Auto) Eos # (Auto) Baso # (Auto) Seg Neutrophils % Seg Neuts % (Manual) Lymphocytes % (Manual) Monocytes % (Manual) Basophils % (Manual) Nucleated RBC % Seg Neutrophils # Seg Neutrophils # Man Lymphocytes # (Manual) Monocytes # (Manual) Eosinophils # (Manual) Basophils # (Manual) PT INR APTT D-Dimer Heparin Anti-Xa Level ABG pH POC ABG pCO2 POC ABG pO2 ABG pO2 ABG HCO3 ABG O2 Saturation ABG Base Excess ABG Hemoglobin ABG Oxyhemoglobin ABG Sodium ABG Potassium ABG Chloride ABG Glucose Oxyhemoglobin Carboxyhemoglobin Sodium 135 L Potassium 5.1 H Chloride Carbon Dioxide BUN 73 H Creatinine 4.0 H Glucose 112 H POC Glucose 109 H 111 H Lactic Acid Calcium 7.8 L Phosphorus Magnesium Ferritin Direct Bilirubin AST ALT Alkaline Phosphatase Lactate Dehydrogenase Total Creatine Kinase C-Reactive Protein Total Protein Albumin Triglycerides Arterial Blood Glucose Arterial Blood Ionized Calcium Urine Creatinine Urine Chloride Vancomycin Trough Coronavirus (PCR) Crossmatch 07/07/20 07/07/20 07/07/20 04:18 05:04 05:29 WBC RBC 2.46 L Hgb 7.6 L Hct 21.5 L MCHC 35 H RDW 16.5 H Plt Count Lymph % (Auto) [place] % (Auto) Lymph # (Auto) [place] # (Auto) Eos # (Auto) Baso # (Auto) Seg Neutrophils % Seg Neuts % (Manual) 82.0 H Lymphocytes % (Manual) Monocytes % (Manual) Basophils % (Manual) Nucleated RBC % 1.0 H Seg Neutrophils # Seg Neutrophils # Man Lymphocytes # (Manual) 1.1 L Monocytes # (Manual) Eosinophils # (Manual) Basophils # (Manual) PT INR APTT D-Dimer Heparin Anti-Xa Level ABG pH POC ABG pCO2 POC ABG pO2 79.6 L ABG pO2 ABG HCO3 ABG O2 Saturation ABG Base Excess ABG Hemoglobin 8.2 L ABG Oxyhemoglobin ABG Sodium 133.3 L ABG Potassium 4.7 H ABG Chloride ABG Glucose 135 H Oxyhemoglobin Carboxyhemoglobin Sodium Potassium Chloride Carbon Dioxide BUN Creatinine Glucose POC Glucose 112 H Lactic Acid Calcium Phosphorus Magnesium Ferritin Direct Bilirubin AST ALT Alkaline Phosphatase Lactate Dehydrogenase Total Creatine Kinase C-Reactive Protein Total Protein Albumin Triglycerides Arterial Blood Glucose 135 H Arterial Blood Ionized Calcium 4.5 L Urine Creatinine Urine Chloride Vancomycin Trough Coronavirus (PCR) Crossmatch 07/07/20 07/07/20 07/07/20 10:17 12:18 17:43 WBC RBC Hgb Hct MCHC RDW Plt Count Lymph % (Auto) [place] % (Auto) Lymph # (Auto) [place] # (Auto) Eos # (Auto) Baso # (Auto) Seg Neutrophils % Seg Neuts % (Manual) Lymphocytes % (Manual) Monocytes % (Manual) Basophils % (Manual) Nucleated RBC % Seg Neutrophils # Seg Neutrophils # Man Lymphocytes # (Manual) Monocytes # (Manual) Eosinophils # (Manual) Basophils # (Manual) PT INR APTT D-Dimer Heparin Anti-Xa Level ABG pH POC ABG pCO2 POC ABG pO2 ABG pO2 ABG HCO3 ABG O2 Saturation ABG Base Excess ABG Hemoglobin ABG Oxyhemoglobin ABG Sodium ABG Potassium ABG Chloride ABG Glucose Oxyhemoglobin Carboxyhemoglobin Sodium 136 L Potassium Chloride 96.8 L Carbon Dioxide BUN 82 H Creatinine 4.3 H Glucose 129 H POC Glucose 108 H 116 H Lactic Acid Calcium 7.8 L Phosphorus Magnesium Ferritin Direct Bilirubin AST ALT Alkaline Phosphatase Lactate Dehydrogenase Total Creatine Kinase C-Reactive Protein Total Protein Albumin Triglycerides Arterial Blood Glucose Arterial Blood Ionized Calcium Urine Creatinine Urine Chloride Vancomycin Trough Coronavirus (PCR) Crossmatch 07/07/20 07/08/20 07/08/20 23:31 04:00 04:00 WBC RBC 2.52 L Hgb 7.3 L Hct 22.2 L MCHC RDW 16.6 H Plt Count Lymph % (Auto) 11.5 L [place] % (Auto) Lymph # (Auto) [place] # (Auto) Eos # (Auto) Baso # (Auto) Seg Neutrophils % 78.2 H Seg Neuts % (Manual) Lymphocytes % (Manual) Monocytes % (Manual) Basophils % (Manual) Nucleated RBC % Seg Neutrophils # 8.0 H Seg Neutrophils # Man Lymphocytes # (Manual) Monocytes # (Manual) Eosinophils # (Manual) Basophils # (Manual) PT INR APTT D-Dimer Heparin Anti-Xa Level ABG pH POC ABG pCO2 POC ABG pO2 ABG pO2 ABG HCO3 ABG O2 Saturation ABG Base Excess ABG Hemoglobin ABG Oxyhemoglobin ABG Sodium ABG Potassium ABG Chloride ABG Glucose Oxyhemoglobin Carboxyhemoglobin Sodium 132 L Potassium 5.4 H Chloride 92.5 L Carbon Dioxide BUN 98 H Creatinine 4.9 H Glucose 105 H POC Glucose 117 H Lactic Acid Calcium 7.9 L Phosphorus Magnesium Ferritin Direct Bilirubin AST ALT Alkaline Phosphatase Lactate Dehydrogenase Total Creatine Kinase C-Reactive Protein Total Protein Albumin Triglycerides Arterial Blood Glucose Arterial Blood Ionized Calcium Urine Creatinine Urine Chloride Vancomycin Trough Coronavirus (PCR) Crossmatch 07/08/20 07/08/20 07/08/20 04:09 11:34 17:05 WBC RBC Hgb Hct MCHC RDW Plt Count Lymph % (Auto) [place] % (Auto) Lymph # (Auto) [place] # (Auto) Eos # (Auto) Baso # (Auto) Seg Neutrophils % Seg Neuts % (Manual) Lymphocytes % (Manual) Monocytes % (Manual) Basophils % (Manual) Nucleated RBC % Seg Neutrophils # Seg Neutrophils # Man Lymphocytes # (Manual) Monocytes # (Manual) Eosinophils # (Manual) Basophils # (Manual) PT INR APTT D-Dimer Heparin Anti-Xa Level ABG pH 7.220 L POC ABG pCO2 60.5 H POC ABG pO2 ABG pO2 ABG HCO3 ABG O2 Saturation ABG Base Excess ABG Hemoglobin 8.2 L ABG Oxyhemoglobin ABG Sodium 131.3 L ABG Potassium 5.2 H ABG Chloride ABG Glucose 103 H Oxyhemoglobin Carboxyhemoglobin Sodium Potassium Chloride Carbon Dioxide BUN Creatinine Glucose POC Glucose 140 H 125 H Lactic Acid Calcium Phosphorus Magnesium Ferritin Direct Bilirubin AST ALT Alkaline Phosphatase Lactate Dehydrogenase Total Creatine Kinase C-Reactive Protein Total Protein Albumin Triglycerides Arterial Blood Glucose 103 H Arterial Blood Ionized Calcium 4.3 L Urine Creatinine Urine Chloride Vancomycin Trough Coronavirus (PCR) Crossmatch 07/08/20 07/08/20 07/09/20 20:21 23:43 05:10 WBC RBC Hgb Hct MCHC RDW Plt Count Lymph % (Auto) [place] % (Auto) Lymph # (Auto) [place] # (Auto) Eos # (Auto) Baso # (Auto) Seg Neutrophils % Seg Neuts % (Manual) Lymphocytes % (Manual) Monocytes % (Manual) Basophils % (Manual) Nucleated RBC % Seg Neutrophils # Seg Neutrophils # Man Lymphocytes # (Manual) Monocytes # (Manual) Eosinophils # (Manual) Basophils # (Manual) PT INR APTT D-Dimer Heparin Anti-Xa Level ABG pH 7.20 L POC ABG pCO2 69.8 H POC ABG pO2 138.9 H 76.1 L ABG pO2 ABG HCO3 ABG O2 Saturation ABG Base Excess ABG Hemoglobin 11.9 L 8.4 L ABG Oxyhemoglobin ABG Sodium 133.1 L 131.2 L ABG Potassium 5.0 H 4.7 H ABG Chloride ABG Glucose 120 H 102 H Oxyhemoglobin Carboxyhemoglobin Sodium Potassium Chloride Carbon Dioxide BUN Creatinine Glucose POC Glucose 118 H Lactic Acid Calcium Phosphorus Magnesium Ferritin Direct Bilirubin AST ALT Alkaline Phosphatase Lactate Dehydrogenase Total Creatine Kinase C-Reactive Protein Total Protein Albumin Triglycerides Arterial Blood Glucose 120 H 102 H Arterial Blood Ionized Calcium 4.4 L 4.3 L Urine Creatinine Urine Chloride Vancomycin Trough Coronavirus (PCR) Crossmatch 07/09/20 07/09/20 07/09/20 11:51 17:04 21:00 WBC RBC Hgb Hct MCHC RDW Plt Count Lymph % (Auto) [place] % (Auto) Lymph # (Auto) [place] # (Auto) Eos # (Auto) Baso # (Auto) Seg Neutrophils % Seg Neuts % (Manual) Lymphocytes % (Manual) Monocytes % (Manual) Basophils % (Manual) Nucleated RBC % Seg Neutrophils # Seg Neutrophils # Man Lymphocytes # (Manual) Monocytes # (Manual) Eosinophils # (Manual) Basophils # (Manual) PT INR APTT D-Dimer Heparin Anti-Xa Level ABG pH POC ABG pCO2 POC ABG pO2 114.2 H ABG pO2 ABG HCO3 ABG O2 Saturation ABG Base Excess ABG Hemoglobin 7.8 L ABG Oxyhemoglobin ABG Sodium 132.3 L ABG Potassium 4.6 H ABG Chloride ABG Glucose Oxyhemoglobin Carboxyhemoglobin Sodium Potassium Chloride Carbon Dioxide BUN Creatinine Glucose POC Glucose 113 H 111 H Lactic Acid Calcium Phosphorus Magnesium Ferritin Direct Bilirubin AST ALT Alkaline Phosphatase Lactate Dehydrogenase Total Creatine Kinase C-Reactive Protein Total Protein Albumin Triglycerides Arterial Blood Glucose Arterial Blood Ionized Calcium 4.4 L Urine Creatinine Urine Chloride Vancomycin Trough Coronavirus (PCR) Crossmatch 07/10/20 07/10/20 07/10/20 03:49 03:55 03:55 WBC 18.1 H RBC 2.37 L Hgb 6.8 L Hct 20.7 L MCHC RDW 16.9 H Plt Count Lymph % (Auto) [place] % (Auto) Lymph # (Auto) [place] # (Auto) Eos # (Auto) Baso # (Auto) Seg Neutrophils % Seg Neuts % (Manual) 79.0 H Lymphocytes % (Manual) 10.0 L Monocytes % (Manual) Basophils % (Manual) Nucleated RBC % 1.0 H Seg Neutrophils # Seg Neutrophils # Man 14.3 H Lymphocytes # (Manual) Monocytes # (Manual) Eosinophils # (Manual) 0.7 H Basophils # (Manual) PT INR APTT D-Dimer Heparin Anti-Xa Level ABG pH POC ABG pCO2 POC ABG pO2 ABG pO2 ABG HCO3 ABG O2 Saturation ABG Base Excess ABG Hemoglobin 7.7 L ABG Oxyhemoglobin ABG Sodium 130.3 L ABG Potassium 4.6 H ABG Chloride ABG Glucose Oxyhemoglobin Carboxyhemoglobin Sodium 136 L Potassium Chloride 96.0 L Carbon Dioxide BUN 76 H Creatinine 3.6 H Glucose POC Glucose Lactic Acid Calcium 7.4 L Phosphorus Magnesium Ferritin Direct Bilirubin AST ALT Alkaline Phosphatase Lactate Dehydrogenase Total Creatine Kinase C-Reactive Protein Total Protein Albumin Triglycerides Arterial Blood Glucose Arterial Blood Ionized Calcium 4.2 L Urine Creatinine Urine Chloride Vancomycin Trough Coronavirus (PCR) Crossmatch 07/10/20 07/11/20 07/11/20 13:24 04:08 06:52 WBC 26.0 H RBC 2.91 L Hgb 8.2 L Hct 24.8 L MCHC RDW 17.2 H Plt Count Lymph % (Auto) [place] % (Auto) Lymph # (Auto) [place] # (Auto) Eos # (Auto) Baso # (Auto) Seg Neutrophils % Seg Neuts % (Manual) Lymphocytes % (Manual) 1.0 L Monocytes % (Manual) 11.0 H Basophils % (Manual) Nucleated RBC % Seg Neutrophils # Seg Neutrophils # Man 16.9 H Lymphocytes # (Manual) 0.3 L Monocytes # (Manual) 2.9 H Eosinophils # (Manual) 1.0 H Basophils # (Manual) PT INR APTT D-Dimer Heparin Anti-Xa Level ABG pH POC ABG pCO2 POC ABG pO2 ABG pO2 ABG HCO3 ABG O2 Saturation ABG Base Excess ABG Hemoglobin 8.5 L ABG Oxyhemoglobin ABG Sodium 130.6 L ABG Potassium 4.9 H ABG Chloride ABG Glucose 105 H Oxyhemoglobin Carboxyhemoglobin Sodium Potassium Chloride Carbon Dioxide BUN Creatinine Glucose POC Glucose Lactic Acid Calcium Phosphorus Magnesium Ferritin Direct Bilirubin AST ALT Alkaline Phosphatase Lactate Dehydrogenase Total Creatine Kinase C-Reactive Protein Total Protein Albumin Triglycerides Arterial Blood Glucose 105 H Arterial Blood Ionized Calcium 4.1 L Urine Creatinine Urine Chloride Vancomycin Trough Coronavirus (PCR) Crossmatch See Detail 07/11/20 07/11/20 07/11/20 06:52 08:48 11:39 WBC RBC Hgb Hct MCHC RDW Plt Count Lymph % (Auto) [place] % (Auto) Lymph # (Auto) [place] # (Auto) Eos # (Auto) Baso # (Auto) Seg Neutrophils % Seg Neuts % (Manual) Lymphocytes % (Manual) Monocytes % (Manual) Basophils % (Manual) Nucleated RBC % Seg Neutrophils # Seg Neutrophils # Man Lymphocytes # (Manual) Monocytes # (Manual) Eosinophils # (Manual) Basophils # (Manual) PT INR APTT D-Dimer Heparin Anti-Xa Level ABG pH POC ABG pCO2 POC ABG pO2 ABG pO2 ABG HCO3 ABG O2 Saturation ABG Base Excess ABG Hemoglobin ABG Oxyhemoglobin ABG Sodium ABG Potassium ABG Chloride ABG Glucose Oxyhemoglobin Carboxyhemoglobin Sodium 133 L 134 L Potassium 5.3 H Chloride 93.5 L 94.8 L Carbon Dioxide BUN 101 H 99 H Creatinine 4.5 H 4.6 H Glucose 102 H POC Glucose 116 H Lactic Acid Calcium 7.8 L 7.6 L Phosphorus Magnesium Ferritin Direct Bilirubin AST ALT Alkaline Phosphatase Lactate Dehydrogenase Total Creatine Kinase C-Reactive Protein Total Protein Albumin Triglycerides Arterial Blood Glucose Arterial Blood Ionized Calcium Urine Creatinine Urine Chloride Vancomycin Trough Coronavirus (PCR) Crossmatch 07/11/20 07/12/20 07/12/20 17:23 00:04 03:20 WBC RBC Hgb Hct MCHC RDW Plt Count Lymph % (Auto) [place] % (Auto) Lymph # (Auto) [place] # (Auto) Eos # (Auto) Baso # (Auto) Seg Neutrophils % Seg Neuts % (Manual) Lymphocytes % (Manual) Monocytes % (Manual) Basophils % (Manual) Nucleated RBC % Seg Neutrophils # Seg Neutrophils # Man Lymphocytes # (Manual) Monocytes # (Manual) Eosinophils # (Manual) Basophils # (Manual) PT INR APTT D-Dimer Heparin Anti-Xa Level ABG pH POC ABG pCO2 49.1 H POC ABG pO2 130.3 H ABG pO2 ABG HCO3 ABG O2 Saturation ABG Base Excess ABG Hemoglobin 8.7 L ABG Oxyhemoglobin ABG Sodium 135.2 L ABG Potassium 4.7 H ABG Chloride ABG Glucose 128 H Oxyhemoglobin Carboxyhemoglobin Sodium Potassium Chloride Carbon Dioxide BUN Creatinine Glucose POC Glucose 142 H 113 H Lactic Acid Calcium Phosphorus Magnesium Ferritin Direct Bilirubin AST ALT Alkaline Phosphatase Lactate Dehydrogenase Total Creatine Kinase C-Reactive Protein Total Protein Albumin Triglycerides Arterial Blood Glucose 128 H Arterial Blood Ionized Calcium 4.4 L Urine Creatinine Urine Chloride Vancomycin Trough Coronavirus (PCR) Crossmatch 07/12/20 07/12/20 07/12/20 03:40 03:40 04:00 WBC 24.3 H RBC 2.83 L Hgb 8.0 L Hct 24.9 L MCHC RDW 17.7 H Plt Count Lymph % (Auto) 5.6 L [place] % (Auto) 7.4 H Lymph # (Auto) [place] # (Auto) 1.8 H Eos # (Auto) 0.7 H Baso # (Auto) Seg Neutrophils % 83.9 H Seg Neuts % (Manual) Lymphocytes % (Manual) Monocytes % (Manual) Basophils % (Manual) Nucleated RBC % Seg Neutrophils # 20.4 H Seg Neutrophils # Man Lymphocytes # (Manual) Monocytes # (Manual) Eosinophils # (Manual) Basophils # (Manual) PT INR APTT D-Dimer Heparin Anti-Xa Level ABG pH POC ABG pCO2 POC ABG pO2 ABG pO2 ABG HCO3 ABG O2 Saturation ABG Base Excess ABG Hemoglobin ABG Oxyhemoglobin ABG Sodium ABG Potassium ABG Chloride ABG Glucose Oxyhemoglobin Carboxyhemoglobin Sodium 134 L Potassium Chloride 95.5 L Carbon Dioxide BUN 79 H Creatinine 3.7 H Glucose 127 H POC Glucose Lactic Acid Calcium 7.8 L Phosphorus Magnesium Ferritin Direct Bilirubin AST ALT Alkaline Phosphatase Lactate Dehydrogenase Total Creatine Kinase C-Reactive Protein Total Protein Albumin Triglycerides 246 H Arterial Blood Glucose Arterial Blood Ionized Calcium Urine Creatinine Urine Chloride Vancomycin Trough Coronavirus (PCR) Crossmatch 07/12/20 07/12/20 07/12/20 05:48 11:50 17:29 WBC RBC Hgb Hct MCHC RDW Plt Count Lymph % (Auto) [place] % (Auto) Lymph # (Auto) [place] # (Auto) Eos # (Auto) Baso # (Auto) Seg Neutrophils % Seg Neuts % (Manual) Lymphocytes % (Manual) Monocytes % (Manual) Basophils % (Manual) Nucleated RBC % Seg Neutrophils # Seg Neutrophils # Man Lymphocytes # (Manual) Monocytes # (Manual) Eosinophils # (Manual) Basophils # (Manual) PT INR APTT D-Dimer Heparin Anti-Xa Level ABG pH POC ABG pCO2 POC ABG pO2 ABG pO2 ABG HCO3 ABG O2 Saturation ABG Base Excess ABG Hemoglobin ABG Oxyhemoglobin ABG Sodium ABG Potassium ABG Chloride ABG Glucose Oxyhemoglobin Carboxyhemoglobin Sodium Potassium Chloride Carbon Dioxide BUN Creatinine Glucose POC Glucose 136 H 113 H 110 H Lactic Acid Calcium Phosphorus Magnesium Ferritin Direct Bilirubin AST ALT Alkaline Phosphatase Lactate Dehydrogenase Total Creatine Kinase C-Reactive Protein Total Protein Albumin Triglycerides Arterial Blood Glucose Arterial Blood Ionized Calcium Urine Creatinine Urine Chloride Vancomycin Trough Coronavirus (PCR) Crossmatch 07/12/20 07/13/20 07/13/20 23:43 03:11 06:59 WBC RBC Hgb Hct MCHC RDW Plt Count Lymph % (Auto) [place] % (Auto) Lymph # (Auto) [place] # (Auto) Eos # (Auto) Baso # (Auto) Seg Neutrophils % Seg Neuts % (Manual) Lymphocytes % (Manual) Monocytes % (Manual) Basophils % (Manual) Nucleated RBC % Seg Neutrophils # Seg Neutrophils # Man Lymphocytes # (Manual) Monocytes # (Manual) Eosinophils # (Manual) Basophils # (Manual) PT INR APTT D-Dimer Heparin Anti-Xa Level ABG pH POC ABG pCO2 49.0 H POC ABG pO2 69.6 L ABG pO2 ABG HCO3 ABG O2 Saturation ABG Base Excess ABG Hemoglobin 8.5 L ABG Oxyhemoglobin 90.5 L ABG Sodium 133.6 L ABG Potassium 5.1 H ABG Chloride ABG Glucose 104 H Oxyhemoglobin Carboxyhemoglobin Sodium 133 L Potassium 5.7 H Chloride 96.3 L Carbon Dioxide 20 L D BUN 102 H Creatinine 4.4 H Glucose 101 H POC Glucose 120 H Lactic Acid Calcium 7.9 L Phosphorus Magnesium Ferritin Direct Bilirubin AST 61 H ALT 85 H Alkaline Phosphatase 144 H Lactate Dehydrogenase Total Creatine Kinase C-Reactive Protein Total Protein 5.4 L Albumin 2.0 L Triglycerides Arterial Blood Glucose 104 H Arterial Blood Ionized Calcium 4.3 L Urine Creatinine Urine Chloride Vancomycin Trough Coronavirus (PCR) Crossmatch 07/13/20 07/13/20 07/13/20 08:48 12:14 15:12 WBC 27.5 H RBC 3.03 L Hgb 8.7 L Hct 27.0 L MCHC RDW 18.0 H Plt Count Lymph % (Auto) [place] % (Auto) Lymph # (Auto) [place] # (Auto) Eos # (Auto) Baso # (Auto) Seg Neutrophils % Seg Neuts % (Manual) Lymphocytes % (Manual) Monocytes % (Manual) Basophils % (Manual) Nucleated RBC % Seg Neutrophils # Seg Neutrophils # Man Lymphocytes # (Manual) Monocytes # (Manual) Eosinophils # (Manual) Basophils # (Manual) PT INR APTT D-Dimer Heparin Anti-Xa Level ABG pH POC ABG pCO2 POC ABG pO2 ABG pO2 ABG HCO3 ABG O2 Saturation ABG Base Excess ABG Hemoglobin ABG Oxyhemoglobin ABG Sodium ABG Potassium ABG Chloride ABG Glucose Oxyhemoglobin Carboxyhemoglobin Sodium Potassium 5.5 H Chloride Carbon Dioxide BUN 88 H Creatinine 3.8 H Glucose 133 H POC Glucose 134 H Lactic Acid Calcium 7.5 L Phosphorus Magnesium Ferritin Direct Bilirubin AST ALT Alkaline Phosphatase Lactate Dehydrogenase Total Creatine Kinase C-Reactive Protein Total Protein Albumin Triglycerides Arterial Blood Glucose Arterial Blood Ionized Calcium Urine Creatinine Urine Chloride Vancomycin Trough Coronavirus (PCR) Crossmatch 07/13/20 07/13/20 07/13/20 16:46 16:47 18:46 WBC RBC Hgb 7.4 L Hct 22.1 L MCHC RDW Plt Count Lymph % (Auto) [place] % (Auto) Lymph # (Auto) [place] # (Auto) Eos # (Auto) Baso # (Auto) Seg Neutrophils % Seg Neuts % (Manual) Lymphocytes % (Manual) Monocytes % (Manual) Basophils % (Manual) Nucleated RBC % Seg Neutrophils # Seg Neutrophils # Man Lymphocytes # (Manual) Monocytes # (Manual) Eosinophils # (Manual) Basophils # (Manual) PT INR APTT D-Dimer Heparin Anti-Xa Level ABG pH POC ABG pCO2 POC ABG pO2 ABG pO2 ABG HCO3 ABG O2 Saturation ABG Base Excess ABG Hemoglobin ABG Oxyhemoglobin ABG Sodium ABG Potassium ABG Chloride ABG Glucose Oxyhemoglobin Carboxyhemoglobin Sodium Potassium Chloride Carbon Dioxide BUN Creatinine Glucose POC Glucose 118 H Lactic Acid Calcium Phosphorus Magnesium Ferritin Direct Bilirubin AST ALT Alkaline Phosphatase Lactate Dehydrogenase Total Creatine Kinase C-Reactive Protein Total Protein Albumin Triglycerides Arterial Blood Glucose Arterial Blood Ionized Calcium Urine Creatinine Urine Chloride Vancomycin Trough Coronavirus (PCR) Crossmatch See Detail 07/13/20 07/14/20 07/14/20 23:34 04:25 12:21 WBC RBC Hgb Hct MCHC RDW Plt Count Lymph % (Auto) [place] % (Auto) Lymph # (Auto) [place] # (Auto) Eos # (Auto) Baso # (Auto) Seg Neutrophils % Seg Neuts % (Manual) Lymphocytes % (Manual) Monocytes % (Manual) Basophils % (Manual) Nucleated RBC % Seg Neutrophils # Seg Neutrophils # Man Lymphocytes # (Manual) Monocytes # (Manual) Eosinophils # (Manual) Basophils # (Manual) PT INR APTT D-Dimer Heparin Anti-Xa Level ABG pH POC ABG pCO2 POC ABG pO2 ABG pO2 ABG HCO3 ABG O2 Saturation ABG Base Excess ABG Hemoglobin 8.9 L ABG Oxyhemoglobin ABG Sodium 133.1 L ABG Potassium 4.7 H ABG Chloride ABG Glucose 113 H Oxyhemoglobin Carboxyhemoglobin Sodium Potassium Chloride Carbon Dioxide BUN Creatinine Glucose POC Glucose 109 H 109 H Lactic Acid Calcium Phosphorus Magnesium Ferritin Direct Bilirubin AST ALT Alkaline Phosphatase Lactate Dehydrogenase Total Creatine Kinase C-Reactive Protein Total Protein Albumin Triglycerides Arterial Blood Glucose 113 H Arterial Blood Ionized Calcium 4.4 L Urine Creatinine Urine Chloride Vancomycin Trough Coronavirus (PCR) Crossmatch 07/14/20 07/14/20 07/14/20 16:44 16:44 20:20 WBC 30.1 H RBC 2.60 L Hgb 7.4 L 5.6 L* Hct 23.0 L 18.1 L* MCHC RDW 18.0 H Plt Count Lymph % (Auto) [place] % (Auto) Lymph # (Auto) [place] # (Auto) Eos # (Auto) Baso # (Auto) Seg Neutrophils % Seg Neuts % (Manual) 78.0 H Lymphocytes % (Manual) 5.0 L Monocytes % (Manual) Basophils % (Manual) Nucleated RBC % Seg Neutrophils # Seg Neutrophils # Man 23.5 H Lymphocytes # (Manual) Monocytes # (Manual) 0.9 H Eosinophils # (Manual) Basophils # (Manual) PT 15.6 H INR 1.26 H APTT D-Dimer Heparin Anti-Xa Level ABG pH POC ABG pCO2 POC ABG pO2 ABG pO2 ABG HCO3 ABG O2 Saturation ABG Base Excess ABG Hemoglobin ABG Oxyhemoglobin ABG Sodium ABG Potassium ABG Chloride ABG Glucose Oxyhemoglobin Carboxyhemoglobin Sodium Potassium Chloride Carbon Dioxide BUN Creatinine Glucose POC Glucose Lactic Acid Calcium Phosphorus Magnesium Ferritin Direct Bilirubin AST ALT Alkaline Phosphatase Lactate Dehydrogenase Total Creatine Kinase C-Reactive Protein Total Protein Albumin Triglycerides Arterial Blood Glucose Arterial Blood Ionized Calcium Urine Creatinine Urine Chloride Vancomycin Trough Coronavirus (PCR) Crossmatch 07/14/20 07/14/20 07/15/20 21:19 23:45 04:13 WBC RBC Hgb Hct MCHC RDW Plt Count Lymph % (Auto) [place] % (Auto) Lymph # (Auto) [place] # (Auto) Eos # (Auto) Baso # (Auto) Seg Neutrophils % Seg Neuts % (Manual) Lymphocytes % (Manual) Monocytes % (Manual) Basophils % (Manual) Nucleated RBC % Seg Neutrophils # Seg Neutrophils # Man Lymphocytes # (Manual) Monocytes # (Manual) Eosinophils # (Manual) Basophils # (Manual) PT INR APTT D-Dimer Heparin Anti-Xa Level ABG pH POC ABG pCO2 POC ABG pO2 ABG pO2 ABG HCO3 ABG O2 Saturation ABG Base Excess ABG Hemoglobin 5.8 L 6.0 L ABG Oxyhemoglobin 93.8 L ABG Sodium 132.2 L 130.3 L ABG Potassium 5.5 H 5.8 H ABG Chloride ABG Glucose 118 H 122 H Oxyhemoglobin Carboxyhemoglobin Sodium Potassium Chloride Carbon Dioxide BUN Creatinine Glucose POC Glucose 126 H Lactic Acid Calcium Phosphorus Magnesium Ferritin Direct Bilirubin AST ALT Alkaline Phosphatase Lactate Dehydrogenase Total Creatine Kinase C-Reactive Protein Total Protein Albumin Triglycerides Arterial Blood Glucose 118 H 122 H Arterial Blood Ionized Calcium 4.3 L 4.2 L Urine Creatinine Urine Chloride Vancomycin Trough Coronavirus (PCR) Crossmatch 07/15/20 07/15/20 07/15/20 08:21 08:21 08:38 WBC 45.5 H* RBC 2.42 L Hgb 7.1 L Hct 21.5 L MCHC RDW 16.5 H Plt Count Lymph % (Auto) [place] % (Auto) Lymph # (Auto) [place] # (Auto) Eos # (Auto) Baso # (Auto) Seg Neutrophils % Seg Neuts % (Manual) 89.0 H Lymphocytes % (Manual) 7.0 L Monocytes % (Manual) Basophils % (Manual) Nucleated RBC % Seg Neutrophils # Seg Neutrophils # Man 40.5 H Lymphocytes # (Manual) Monocytes # (Manual) 1.8 H Eosinophils # (Manual) Basophils # (Manual) PT 17.6 H INR 1.46 H APTT D-Dimer Heparin Anti-Xa Level ABG pH POC ABG pCO2 POC ABG pO2 ABG pO2 ABG HCO3 ABG O2 Saturation ABG Base Excess ABG Hemoglobin ABG Oxyhemoglobin ABG Sodium ABG Potassium ABG Chloride ABG Glucose Oxyhemoglobin Carboxyhemoglobin Sodium 131 L Potassium 6.0 H Chloride 94.6 L Carbon Dioxide 20 L BUN 116 H Creatinine 4.6 H Glucose 123 H POC Glucose Lactic Acid Calcium 7.6 L Phosphorus Magnesium Ferritin Direct Bilirubin AST ALT Alkaline Phosphatase Lactate Dehydrogenase Total Creatine Kinase C-Reactive Protein Total Protein Albumin Triglycerides Arterial Blood Glucose Arterial Blood Ionized Calcium Urine Creatinine Urine Chloride Vancomycin Trough Coronavirus (PCR) Crossmatch 07/15/20 07/15/20 07/15/20 11:29 17:23 18:52 WBC RBC Hgb Hct MCHC RDW Plt Count Lymph % (Auto) [place] % (Auto) Lymph # (Auto) [place] # (Auto) Eos # (Auto) Baso # (Auto) Seg Neutrophils % Seg Neuts % (Manual) Lymphocytes % (Manual) Monocytes % (Manual) Basophils % (Manual) Nucleated RBC % Seg Neutrophils # Seg Neutrophils # Man Lymphocytes # (Manual) Monocytes # (Manual) Eosinophils # (Manual) Basophils # (Manual) PT INR APTT D-Dimer Heparin Anti-Xa Level ABG pH POC ABG pCO2 POC ABG pO2 ABG pO2 ABG HCO3 ABG O2 Saturation ABG Base Excess ABG Hemoglobin ABG Oxyhemoglobin ABG Sodium ABG Potassium ABG Chloride ABG Glucose Oxyhemoglobin Carboxyhemoglobin Sodium Potassium Chloride 97.9 L Carbon Dioxide BUN 78 H Creatinine 3.1 H Glucose 114 H POC Glucose 181 H 120 H Lactic Acid Calcium 7.3 L Phosphorus Magnesium Ferritin Direct Bilirubin AST ALT Alkaline Phosphatase Lactate Dehydrogenase Total Creatine Kinase C-Reactive Protein Total Protein Albumin Triglycerides Arterial Blood Glucose Arterial Blood Ionized Calcium Urine Creatinine Urine Chloride Vancomycin Trough Coronavirus (PCR) Crossmatch 07/15/20 07/16/20 07/16/20 18:52 01:10 03:38 WBC RBC Hgb 9.9 L 8.5 L Hct 29.8 L D 24.7 L MCHC RDW Plt Count Lymph % (Auto) [place] % (Auto) Lymph # (Auto) [place] # (Auto) Eos # (Auto) Baso # (Auto) Seg Neutrophils % Seg Neuts % (Manual) Lymphocytes % (Manual) Monocytes % (Manual) Basophils % (Manual) Nucleated RBC % Seg Neutrophils # Seg Neutrophils # Man Lymphocytes # (Manual) Monocytes # (Manual) Eosinophils # (Manual) Basophils # (Manual) PT INR APTT D-Dimer Heparin Anti-Xa Level ABG pH 7.314 L POC ABG pCO2 48.5 H POC ABG pO2 58.9 L ABG pO2 ABG HCO3 ABG O2 Saturation ABG Base Excess ABG Hemoglobin 8.7 L ABG Oxyhemoglobin 86.7 L ABG Sodium 132.7 L ABG Potassium 5.2 H ABG Chloride ABG Glucose 99 H Oxyhemoglobin Carboxyhemoglobin Sodium Potassium Chloride Carbon Dioxide BUN Creatinine Glucose POC Glucose Lactic Acid Calcium Phosphorus Magnesium Ferritin Direct Bilirubin AST ALT Alkaline Phosphatase Lactate Dehydrogenase Total Creatine Kinase C-Reactive Protein Total Protein Albumin Triglycerides Arterial Blood Glucose 99 H Arterial Blood Ionized Calcium 3.9 L Urine Creatinine Urine Chloride Vancomycin Trough Coronavirus (PCR) Crossmatch 07/16/20 07/16/20 07/16/20 04:28 04:28 07:29 WBC 48.9 H* RBC 2.86 L Hgb 8.6 L 7.9 L Hct 25.4 L 24.4 L MCHC RDW 15.6 H Plt Count Lymph % (Auto) [place] % (Auto) Lymph # (Auto) [place] # (Auto) Eos # (Auto) Baso # (Auto) Seg Neutrophils % Seg Neuts % (Manual) Lymphocytes % (Manual) Monocytes % (Manual) Basophils % (Manual) Nucleated RBC % Seg Neutrophils # Seg Neutrophils # Man Lymphocytes # (Manual) Monocytes # (Manual) Eosinophils # (Manual) Basophils # (Manual) PT INR APTT D-Dimer Heparin Anti-Xa Level ABG pH POC ABG pCO2 POC ABG pO2 ABG pO2 ABG HCO3 ABG O2 Saturation ABG Base Excess ABG Hemoglobin ABG Oxyhemoglobin ABG Sodium ABG Potassium ABG Chloride ABG Glucose Oxyhemoglobin Carboxyhemoglobin Sodium 136 L Potassium 5.4 H Chloride 95.0 L Carbon Dioxide BUN 85 H Creatinine 3.4 H Glucose 66 L POC Glucose Lactic Acid Calcium 6.8 L Phosphorus Magnesium Ferritin Direct Bilirubin AST ALT Alkaline Phosphatase Lactate Dehydrogenase Total Creatine Kinase C-Reactive Protein Total Protein Albumin Triglycerides Arterial Blood Glucose Arterial Blood Ionized Calcium Urine Creatinine Urine Chloride Vancomycin Trough Coronavirus (PCR) Crossmatch 07/16/20 07/16/20 07/16/20 11:52 18:06 18:08 WBC RBC Hgb 7.4 L Hct 22.5 L MCHC RDW Plt Count Lymph % (Auto) [place] % (Auto) Lymph # (Auto) [place] # (Auto) Eos # (Auto) Baso # (Auto) Seg Neutrophils % Seg Neuts % (Manual) Lymphocytes % (Manual) Monocytes % (Manual) Basophils % (Manual) Nucleated RBC % Seg Neutrophils # Seg Neutrophils # Man Lymphocytes # (Manual) Monocytes # (Manual) Eosinophils # (Manual) Basophils # (Manual) PT INR APTT D-Dimer Heparin Anti-Xa Level ABG pH POC ABG pCO2 POC ABG pO2 ABG pO2 ABG HCO3 ABG O2 Saturation ABG Base Excess ABG Hemoglobin ABG Oxyhemoglobin ABG Sodium ABG Potassium ABG Chloride ABG Glucose Oxyhemoglobin Carboxyhemoglobin Sodium Potassium Chloride Carbon Dioxide BUN Creatinine Glucose POC Glucose 124 H 108 H Lactic Acid Calcium Phosphorus Magnesium Ferritin Direct Bilirubin AST ALT Alkaline Phosphatase Lactate Dehydrogenase Total Creatine Kinase C-Reactive Protein Total Protein Albumin Triglycerides Arterial Blood Glucose Arterial Blood Ionized Calcium Urine Creatinine Urine Chloride Vancomycin Trough Coronavirus (PCR) Crossmatch 07/17/20 07/17/20 07/17/20 03:27 15:25 15:25 WBC 46.2 H* RBC 2.05 L Hgb 6.1 L Hct 18.4 L* MCHC RDW 15.6 H Plt Count Lymph % (Auto) [place] % (Auto) Lymph # (Auto) [place] # (Auto) Eos # (Auto) Baso # (Auto) Seg Neutrophils % Seg Neuts % (Manual) 87.0 H Lymphocytes % (Manual) 3.0 L Monocytes % (Manual) Basophils % (Manual) Nucleated RBC % Seg Neutrophils # Seg Neutrophils # Man 40.2 H Lymphocytes # (Manual) Monocytes # (Manual) 3.2 H Eosinophils # (Manual) Basophils # (Manual) PT 18.2 H INR 1.52 H APTT D-Dimer Heparin Anti-Xa Level ABG pH 7.313 L POC ABG pCO2 50.9 H POC ABG pO2 ABG pO2 ABG HCO3 ABG O2 Saturation ABG Base Excess ABG Hemoglobin 7.5 L ABG Oxyhemoglobin ABG Sodium 131.8 L ABG Potassium 4.6 H ABG Chloride ABG Glucose 105 H Oxyhemoglobin Carboxyhemoglobin Sodium Potassium Chloride Carbon Dioxide BUN Creatinine Glucose POC Glucose Lactic Acid Calcium Phosphorus Magnesium Ferritin Direct Bilirubin AST ALT Alkaline Phosphatase Lactate Dehydrogenase Total Creatine Kinase C-Reactive Protein Total Protein Albumin Triglycerides Arterial Blood Glucose 105 H Arterial Blood Ionized Calcium 3.9 L Urine Creatinine Urine Chloride Vancomycin Trough Coronavirus (PCR) Crossmatch 07/17/20 07/18/20 07/18/20 Unknown 03:10 05:06 WBC 37.9 H RBC 2.91 L Hgb 8.5 L Hct 25.6 L D MCHC RDW Plt Count Lymph % (Auto) [place] % (Auto) Lymph # (Auto) [place] # (Auto) Eos # (Auto) Baso # (Auto) Seg Neutrophils % Seg Neuts % (Manual) Lymphocytes % (Manual) Monocytes % (Manual) Basophils % (Manual) Nucleated RBC % Seg Neutrophils # Seg Neutrophils # Man Lymphocytes # (Manual) Monocytes # (Manual) Eosinophils # (Manual) Basophils # (Manual) PT INR APTT D-Dimer Heparin Anti-Xa Level ABG pH POC ABG pCO2 POC ABG pO2 114.9 H ABG pO2 ABG HCO3 ABG O2 Saturation ABG Base Excess ABG Hemoglobin 8.6 L ABG Oxyhemoglobin ABG Sodium 130.6 L ABG Potassium 4.9 H ABG Chloride ABG Glucose Oxyhemoglobin Carboxyhemoglobin Sodium Potassium Chloride Carbon Dioxide BUN Creatinine Glucose POC Glucose Lactic Acid Calcium Phosphorus Magnesium Ferritin Direct Bilirubin AST ALT Alkaline Phosphatase Lactate Dehydrogenase Total Creatine Kinase C-Reactive Protein Total Protein Albumin Triglycerides Arterial Blood Glucose Arterial Blood Ionized Calcium 3.8 L Urine Creatinine Urine Chloride Vancomycin Trough Coronavirus (PCR) Crossmatch See Detail 07/18/20 07/19/20 07/19/20 05:06 00:06 03:57 WBC RBC Hgb Hct MCHC RDW Plt Count Lymph % (Auto) [place] % (Auto) Lymph # (Auto) [place] # (Auto) Eos # (Auto) Baso # (Auto) Seg Neutrophils % Seg Neuts % (Manual) Lymphocytes % (Manual) Monocytes % (Manual) Basophils % (Manual) Nucleated RBC % Seg Neutrophils # Seg Neutrophils # Man Lymphocytes # (Manual) Monocytes # (Manual) Eosinophils # (Manual) Basophils # (Manual) PT INR APTT D-Dimer Heparin Anti-Xa Level ABG pH POC ABG pCO2 POC ABG pO2 ABG pO2 ABG HCO3 ABG O2 Saturation ABG Base Excess ABG Hemoglobin 8.6 L ABG Oxyhemoglobin ABG Sodium 130.4 L ABG Potassium ABG Chloride ABG Glucose Oxyhemoglobin Carboxyhemoglobin Sodium Potassium 5.4 H Chloride Carbon Dioxide BUN 79 H Creatinine 3.2 H Glucose POC Glucose 69 L Lactic Acid Calcium 6.9 L Phosphorus Magnesium Ferritin Direct Bilirubin AST ALT 58 H Alkaline Phosphatase Lactate Dehydrogenase Total Creatine Kinase C-Reactive Protein Total Protein 4.3 L D Albumin 1.7 L Triglycerides 306 H Arterial Blood Glucose Arterial Blood Ionized Calcium 3.9 L Urine Creatinine Urine Chloride Vancomycin Trough Coronavirus (PCR) Crossmatch 07/19/20 07/19/20 07/19/20 05:22 09:15 09:15 WBC 32.5 H RBC 2.57 L Hgb 7.8 L Hct 22.8 L MCHC RDW 15.3 H Plt Count Lymph % (Auto) [place] % (Auto) Lymph # (Auto) [place] # (Auto) Eos # (Auto) Baso # (Auto) Seg Neutrophils % Seg Neuts % (Manual) Lymphocytes % (Manual) Monocytes % (Manual) Basophils % (Manual) Nucleated RBC % Seg Neutrophils # Seg Neutrophils # Man Lymphocytes # (Manual) Monocytes # (Manual) Eosinophils # (Manual) Basophils # (Manual) PT INR APTT D-Dimer Heparin Anti-Xa Level ABG pH POC ABG pCO2 POC ABG pO2 ABG pO2 ABG HCO3 ABG O2 Saturation ABG Base Excess ABG Hemoglobin ABG Oxyhemoglobin ABG Sodium ABG Potassium ABG Chloride ABG Glucose Oxyhemoglobin Carboxyhemoglobin Sodium 135 L Potassium Chloride 96.3 L Carbon Dioxide BUN 61 H Creatinine 2.8 H Glucose POC Glucose 64 L Lactic Acid Calcium 6.8 L Phosphorus Magnesium Ferritin Direct Bilirubin AST 54 H ALT 65 H Alkaline Phosphatase Lactate Dehydrogenase Total Creatine Kinase C-Reactive Protein Total Protein 4.3 L Albumin 1.8 L Triglycerides Arterial Blood Glucose Arterial Blood Ionized Calcium Urine Creatinine Urine Chloride Vancomycin Trough Coronavirus (PCR) Crossmatch 07/20/20 07/20/20 07/20/20 05:20 06:00 06:07 WBC 28.1 H RBC 2.53 L Hgb 7.7 L Hct 22.7 L MCHC RDW 15.5 H Plt Count Lymph % (Auto) [place] % (Auto) Lymph # (Auto) [place] # (Auto) Eos # (Auto) Baso # (Auto) Seg Neutrophils % Seg Neuts % (Manual) Lymphocytes % (Manual) Monocytes % (Manual) Basophils % (Manual) Nucleated RBC % Seg Neutrophils # Seg Neutrophils # Man Lymphocytes # (Manual) Monocytes # (Manual) Eosinophils # (Manual) Basophils # (Manual) PT INR APTT D-Dimer Heparin Anti-Xa Level ABG pH POC ABG pCO2 POC ABG pO2 ABG pO2 ABG HCO3 ABG O2 Saturation ABG Base Excess ABG Hemoglobin 6.3 L ABG Oxyhemoglobin ABG Sodium 130.0 L ABG Potassium ABG Chloride ABG Glucose 114 H Oxyhemoglobin Carboxyhemoglobin Sodium Potassium Chloride Carbon Dioxide BUN Creatinine Glucose POC Glucose 110 H Lactic Acid Calcium Phosphorus Magnesium Ferritin Direct Bilirubin AST ALT Alkaline Phosphatase Lactate Dehydrogenase Total Creatine Kinase C-Reactive Protein Total Protein Albumin Triglycerides Arterial Blood Glucose 114 H Arterial Blood Ionized Calcium 3.9 L Urine Creatinine Urine Chloride Vancomycin Trough Coronavirus (PCR) Crossmatch 07/20/20 07/21/20 07/21/20 17:19 05:02 05:40 WBC 32.9 H RBC 2.78 L Hgb 8.5 L Hct 25.2 L MCHC RDW 15.7 H Plt Count 74 L Lymph % (Auto) [place] % (Auto) Lymph # (Auto) [place] # (Auto) Eos # (Auto) Baso # (Auto) Seg Neutrophils % Seg Neuts % (Manual) Lymphocytes % (Manual) Monocytes % (Manual) Basophils % (Manual) Nucleated RBC % Seg Neutrophils # Seg Neutrophils # Man Lymphocytes # (Manual) Monocytes # (Manual) Eosinophils # (Manual) Basophils # (Manual) PT INR APTT D-Dimer Heparin Anti-Xa Level ABG pH POC ABG pCO2 POC ABG pO2 73.2 L ABG pO2 ABG HCO3 ABG O2 Saturation ABG Base Excess ABG Hemoglobin 9.1 L ABG Oxyhemoglobin 93.4 L ABG Sodium ABG Potassium 3.1 L ABG Chloride ABG Glucose 112 H Oxyhemoglobin Carboxyhemoglobin Sodium Potassium Chloride Carbon Dioxide BUN Creatinine Glucose POC Glucose 137 H Lactic Acid Calcium Phosphorus Magnesium Ferritin Direct Bilirubin AST ALT Alkaline Phosphatase Lactate Dehydrogenase Total Creatine Kinase C-Reactive Protein Total Protein Albumin Triglycerides Arterial Blood Glucose 112 H Arterial Blood Ionized Calcium Urine Creatinine Urine Chloride Vancomycin Trough Coronavirus (PCR) Crossmatch 07/22/20 07/22/20 07/22/20 04:11 16:00 16:00 WBC 38.7 H RBC 2.72 L Hgb 8.1 L Hct 24.5 L MCHC RDW 16.1 H Plt Count Lymph % (Auto) [place] % (Auto) Lymph # (Auto) [place] # (Auto) Eos # (Auto) Baso # (Auto) Seg Neutrophils % Seg Neuts % (Manual) Lymphocytes % (Manual) Monocytes % (Manual) Basophils % (Manual) Nucleated RBC % Seg Neutrophils # Seg Neutrophils # Man Lymphocytes # (Manual) Monocytes # (Manual) Eosinophils # (Manual) Basophils # (Manual) PT INR APTT D-Dimer Heparin Anti-Xa Level ABG pH POC ABG pCO2 POC ABG pO2 67.7 L ABG pO2 ABG HCO3 ABG O2 Saturation ABG Base Excess ABG Hemoglobin 7.4 L ABG Oxyhemoglobin 91.7 L ABG Sodium ABG Potassium 2.9 L ABG Chloride ABG Glucose 105 H Oxyhemoglobin Carboxyhemoglobin Sodium Potassium Chloride Carbon Dioxide BUN Creatinine Glucose POC Glucose Lactic Acid Calcium Phosphorus Magnesium Ferritin Direct Bilirubin AST ALT Alkaline Phosphatase Lactate Dehydrogenase Total Creatine Kinase C-Reactive Protein Total Protein Albumin Triglycerides 197 H Arterial Blood Glucose 105 H Arterial Blood Ionized Calcium Urine Creatinine Urine Chloride Vancomycin Trough Coronavirus (PCR) Crossmatch 07/23/20 07/23/20 07/23/20 04:56 11:49 Unknown WBC RBC Hgb Hct MCHC RDW Plt Count Lymph % (Auto) [place] % (Auto) Lymph # (Auto) [place] # (Auto) Eos # (Auto) Baso # (Auto) Seg Neutrophils % Seg Neuts % (Manual) Lymphocytes % (Manual) Monocytes % (Manual) Basophils % (Manual) Nucleated RBC % Seg Neutrophils # Seg Neutrophils # Man Lymphocytes # (Manual) Monocytes # (Manual) Eosinophils # (Manual) Basophils # (Manual) PT INR APTT D-Dimer Heparin Anti-Xa Level ABG pH POC ABG pCO2 POC ABG pO2 75.7 L ABG pO2 ABG HCO3 ABG O2 Saturation ABG Base Excess ABG Hemoglobin 9.3 L ABG Oxyhemoglobin ABG Sodium ABG Potassium 3.1 L ABG Chloride 108.0 H ABG Glucose 101 H Oxyhemoglobin Carboxyhemoglobin Sodium Potassium 3.1 L D Chloride Carbon Dioxide BUN 36 H Creatinine 2.1 H Glucose 103 H POC Glucose 107 H Lactic Acid Calcium Phosphorus Magnesium Ferritin Direct Bilirubin AST ALT Alkaline Phosphatase Lactate Dehydrogenase Total Creatine Kinase C-Reactive Protein Total Protein Albumin Triglycerides Arterial Blood Glucose 101 H Arterial Blood Ionized Calcium Urine Creatinine Urine Chloride Vancomycin Trough Coronavirus (PCR) Crossmatch 07/24/20 07/24/20 07/24/20 06:40 06:40 20:38 WBC 31.4 H RBC 2.37 L Hgb 7.2 L Hct 21.7 L MCHC RDW 17.0 H Plt Count Lymph % (Auto) [place] % (Auto) Lymph # (Auto) [place] # (Auto) Eos # (Auto) Baso # (Auto) Seg Neutrophils % Seg Neuts % (Manual) 85.0 H Lymphocytes % (Manual) 6.0 L Monocytes % (Manual) Basophils % (Manual) Nucleated RBC % Seg Neutrophils # Seg Neutrophils # Man 26.7 H Lymphocytes # (Manual) Monocytes # (Manual) 0.9 H Eosinophils # (Manual) Basophils # (Manual) 0.3 H PT INR APTT D-Dimer Heparin Anti-Xa Level ABG pH POC ABG pCO2 POC ABG pO2 ABG pO2 ABG HCO3 ABG O2 Saturation ABG Base Excess ABG Hemoglobin ABG Oxyhemoglobin ABG Sodium ABG Potassium ABG Chloride ABG Glucose Oxyhemoglobin Carboxyhemoglobin Sodium Potassium 3.1 L Chloride Carbon Dioxide BUN 46 H Creatinine 2.5 H Glucose 109 H POC Glucose Lactic Acid Calcium Phosphorus Magnesium Ferritin Direct Bilirubin AST 46 H ALT 74 H Alkaline Phosphatase 180 H Lactate Dehydrogenase Total Creatine Kinase C-Reactive Protein Total Protein 4.6 L Albumin 2.0 L Triglycerides Arterial Blood Glucose Arterial Blood Ionized Calcium Urine Creatinine Urine Chloride Vancomycin Trough Coronavirus (PCR) Crossmatch See Detail 07/24/20 07/25/20 07/25/20 20:40 05:39 05:39 WBC 26.6 H RBC 2.79 L Hgb 8.5 L Hct 25.6 L MCHC RDW 16.1 H Plt Count Lymph % (Auto) [place] % (Auto) Lymph # (Auto) [place] # (Auto) Eos # (Auto) Baso # (Auto) Seg Neutrophils % Seg Neuts % (Manual) 72.0 H Lymphocytes % (Manual) 2.0 L Monocytes % (Manual) Basophils % (Manual) 3.0 H Nucleated RBC % 1.0 H Seg Neutrophils # Seg Neutrophils # Man 19.2 H Lymphocytes # (Manual) 0.5 L Monocytes # (Manual) 1.6 H Eosinophils # (Manual) 0.5 H Basophils # (Manual) 0.8 H PT 15.3 H INR 1.21 H APTT D-Dimer Heparin Anti-Xa Level ABG pH POC ABG pCO2 POC ABG pO2 ABG pO2 ABG HCO3 ABG O2 Saturation ABG Base Excess ABG Hemoglobin ABG Oxyhemoglobin ABG Sodium ABG Potassium ABG Chloride ABG Glucose Oxyhemoglobin Carboxyhemoglobin Sodium Potassium Chloride Carbon Dioxide BUN 55 H Creatinine 2.9 H Glucose POC Glucose Lactic Acid Calcium Phosphorus Magnesium Ferritin Direct Bilirubin AST ALT Alkaline Phosphatase Lactate Dehydrogenase Total Creatine Kinase C-Reactive Protein Total Protein Albumin Triglycerides Arterial Blood Glucose Arterial Blood Ionized Calcium Urine Creatinine Urine Chloride Vancomycin Trough Coronavirus (PCR) Crossmatch 07/25/20 07/26/20 07/26/20 17:22 08:46 08:46 WBC RBC Hgb Hct MCHC RDW Plt Count Lymph % (Auto) [place] % (Auto) Lymph # (Auto) [place] # (Auto) Eos # (Auto) Baso # (Auto) Seg Neutrophils % Seg Neuts % (Manual) Lymphocytes % (Manual) Monocytes % (Manual) Basophils % (Manual) Nucleated RBC % Seg Neutrophils # Seg Neutrophils # Man Lymphocytes # (Manual) Monocytes # (Manual) Eosinophils # (Manual) Basophils # (Manual) PT INR APTT D-Dimer Heparin Anti-Xa Level ABG pH POC ABG pCO2 POC ABG pO2 ABG pO2 ABG HCO3 ABG O2 Saturation ABG Base Excess ABG Hemoglobin ABG Oxyhemoglobin ABG Sodium ABG Potassium ABG Chloride ABG Glucose Oxyhemoglobin Carboxyhemoglobin Sodium Potassium Chloride Carbon Dioxide 31 H BUN 37 H Creatinine 2.2 H Glucose POC Glucose 65 L Lactic Acid Calcium 8.2 L Phosphorus Magnesium Ferritin Direct Bilirubin AST ALT Alkaline Phosphatase Lactate Dehydrogenase Total Creatine Kinase C-Reactive Protein Total Protein Albumin Triglycerides 166 H Arterial Blood Glucose Arterial Blood Ionized Calcium Urine Creatinine Urine Chloride Vancomycin Trough Coronavirus (PCR) Crossmatch 07/26/20 07/27/20 07/27/20 Unknown 04:00 07:09 WBC 24.6 H 27.1 H RBC 2.68 L 2.74 L Hgb 8.3 L 8.3 L Hct 24.7 L 25.3 L MCHC RDW 16.3 H 17.2 H Plt Count Lymph % (Auto) [place] % (Auto) Lymph # (Auto) [place] # (Auto) Eos # (Auto) Baso # (Auto) Seg Neutrophils % Seg Neuts % (Manual) 82.0 H 85.0 H Lymphocytes % (Manual) 5.0 L 4.0 L Monocytes % (Manual) 8.0 H Basophils % (Manual) Nucleated RBC % Seg Neutrophils # Seg Neutrophils # Man 20.2 H 23.0 H Lymphocytes # (Manual) 1.1 L Monocytes # (Manual) 2.0 H 1.6 H Eosinophils # (Manual) 0.7 H 1.1 H Basophils # (Manual) 0.3 H PT INR APTT D-Dimer Heparin Anti-Xa Level ABG pH POC ABG pCO2 POC ABG pO2 ABG pO2 ABG HCO3 ABG O2 Saturation ABG Base Excess ABG Hemoglobin ABG Oxyhemoglobin ABG Sodium ABG Potassium ABG Chloride ABG Glucose Oxyhemoglobin Carboxyhemoglobin Sodium Potassium Chloride Carbon Dioxide BUN Creatinine Glucose POC Glucose 115 H Lactic Acid Calcium Phosphorus Magnesium Ferritin Direct Bilirubin AST ALT Alkaline Phosphatase Lactate Dehydrogenase Total Creatine Kinase C-Reactive Protein Total Protein Albumin Triglycerides Arterial Blood Glucose Arterial Blood Ionized Calcium Urine Creatinine Urine Chloride Vancomycin Trough Coronavirus (PCR) Crossmatch 07/27/20 07/27/20 07/28/20 21:45 22:36 00:05 WBC RBC Hgb 6.4 L Hct 19.8 L* MCHC RDW Plt Count Lymph % (Auto) [place] % (Auto) Lymph # (Auto) [place] # (Auto) Eos # (Auto) Baso # (Auto) Seg Neutrophils % Seg Neuts % (Manual) Lymphocytes % (Manual) Monocytes % (Manual) Basophils % (Manual) Nucleated RBC % Seg Neutrophils # Seg Neutrophils # Man Lymphocytes # (Manual) Monocytes # (Manual) Eosinophils # (Manual) Basophils # (Manual) PT INR APTT D-Dimer Heparin Anti-Xa Level ABG pH POC ABG pCO2 POC ABG pO2 ABG pO2 ABG HCO3 ABG O2 Saturation ABG Base Excess ABG Hemoglobin ABG Oxyhemoglobin ABG Sodium ABG Potassium ABG Chloride ABG Glucose Oxyhemoglobin Carboxyhemoglobin Sodium Potassium Chloride Carbon Dioxide BUN Creatinine Glucose POC Glucose 124 H Lactic Acid Calcium Phosphorus Magnesium Ferritin Direct Bilirubin AST ALT Alkaline Phosphatase Lactate Dehydrogenase Total Creatine Kinase C-Reactive Protein Total Protein Albumin Triglycerides Arterial Blood Glucose Arterial Blood Ionized Calcium Urine Creatinine Urine Chloride Vancomycin Trough Coronavirus (PCR) Crossmatch See Detail 07/28/20 07/28/20 07/28/20 04:00 06:27 12:24 WBC 30.3 H RBC 2.35 L Hgb 7.2 L Hct 21.2 L MCHC RDW 16.8 H Plt Count Lymph % (Auto) [place] % (Auto) Lymph # (Auto) [place] # (Auto) Eos # (Auto) Baso # (Auto) Seg Neutrophils % Seg Neuts % (Manual) Lymphocytes % (Manual) Monocytes % (Manual) Basophils % (Manual) Nucleated RBC % Seg Neutrophils # Seg Neutrophils # Man Lymphocytes # (Manual) Monocytes # (Manual) Eosinophils # (Manual) Basophils # (Manual) PT INR APTT D-Dimer Heparin Anti-Xa Level ABG pH POC ABG pCO2 POC ABG pO2 ABG pO2 ABG HCO3 ABG O2 Saturation ABG Base Excess ABG Hemoglobin ABG Oxyhemoglobin ABG Sodium ABG Potassium ABG Chloride ABG Glucose Oxyhemoglobin Carboxyhemoglobin Sodium Potassium Chloride Carbon Dioxide BUN Creatinine Glucose POC Glucose 107 H 110 H Lactic Acid Calcium Phosphorus Magnesium Ferritin Direct Bilirubin AST ALT Alkaline Phosphatase Lactate Dehydrogenase Total Creatine Kinase C-Reactive Protein Total Protein Albumin Triglycerides Arterial Blood Glucose Arterial Blood Ionized Calcium Urine Creatinine Urine Chloride Vancomycin Trough Coronavirus (PCR) Crossmatch 07/28/20 07/28/20 07/28/20 14:31 18:19 23:33 WBC RBC Hgb Hct MCHC RDW Plt Count Lymph % (Auto) [place] % (Auto) Lymph # (Auto) [place] # (Auto) Eos # (Auto) Baso # (Auto) Seg Neutrophils % Seg Neuts % (Manual) Lymphocytes % (Manual) Monocytes % (Manual) Basophils % (Manual) Nucleated RBC % Seg Neutrophils # Seg Neutrophils # Man Lymphocytes # (Manual) Monocytes # (Manual) Eosinophils # (Manual) Basophils # (Manual) PT INR APTT D-Dimer Heparin Anti-Xa Level ABG pH 7.333 L POC ABG pCO2 POC ABG pO2 ABG pO2 68.0 L ABG HCO3 ABG O2 Saturation 92.4 L ABG Base Excess -2.7 L ABG Hemoglobin 9.0 L ABG Oxyhemoglobin ABG Sodium ABG Potassium ABG Chloride ABG Glucose Oxyhemoglobin 89.9 L Carboxyhemoglobin Sodium Potassium Chloride Carbon Dioxide BUN Creatinine Glucose POC Glucose 117 H 113 H Lactic Acid Calcium Phosphorus Magnesium Ferritin Direct Bilirubin AST ALT Alkaline Phosphatase Lactate Dehydrogenase Total Creatine Kinase C-Reactive Protein Total Protein Albumin Triglycerides Arterial Blood Glucose Arterial Blood Ionized Calcium Urine Creatinine Urine Chloride Vancomycin Trough Coronavirus (PCR) Crossmatch 07/28/20 07/29/20 07/29/20 Unknown 04:39 04:39 WBC 38.6 H RBC 2.15 L Hgb 6.6 L Hct 19.9 L* MCHC RDW 17.5 H Plt Count Lymph % (Auto) 3.2 L [place] % (Auto) Lymph # (Auto) [place] # (Auto) 2.7 H Eos # (Auto) 0.8 H Baso # (Auto) 0.4 H Seg Neutrophils % 86.5 H Seg Neuts % (Manual) Lymphocytes % (Manual) Monocytes % (Manual) Basophils % (Manual) Nucleated RBC % Seg Neutrophils # 33.4 H Seg Neutrophils # Man Lymphocytes # (Manual) Monocytes # (Manual) Eosinophils # (Manual) Basophils # (Manual) PT INR APTT D-Dimer Heparin Anti-Xa Level ABG pH POC ABG pCO2 POC ABG pO2 ABG pO2 ABG HCO3 ABG O2 Saturation ABG Base Excess ABG Hemoglobin ABG Oxyhemoglobin ABG Sodium ABG Potassium ABG Chloride ABG Glucose Oxyhemoglobin Carboxyhemoglobin Sodium 135 L Potassium 3.2 L 3.1 L Chloride Carbon Dioxide BUN 35 H 42 H Creatinine 2.3 H 2.5 H Glucose 123 H 109 H POC Glucose Lactic Acid Calcium 7.2 L 7.5 L Phosphorus Magnesium Ferritin Direct Bilirubin AST ALT Alkaline Phosphatase Lactate Dehydrogenase Total Creatine Kinase C-Reactive Protein Total Protein Albumin Triglycerides Arterial Blood Glucose Arterial Blood Ionized Calcium Urine Creatinine Urine Chloride Vancomycin Trough Coronavirus (PCR) Crossmatch 07/29/20 07/29/20 07/29/20 05:36 11:51 17:42 WBC RBC Hgb Hct MCHC RDW Plt Count Lymph % (Auto) [place] % (Auto) Lymph # (Auto) [place] # (Auto) Eos # (Auto) Baso # (Auto) Seg Neutrophils % Seg Neuts % (Manual) Lymphocytes % (Manual) Monocytes % (Manual) Basophils % (Manual) Nucleated RBC % Seg Neutrophils # Seg Neutrophils # Man Lymphocytes # (Manual) Monocytes # (Manual) Eosinophils # (Manual) Basophils # (Manual) PT INR APTT D-Dimer Heparin Anti-Xa Level ABG pH POC ABG pCO2 POC ABG pO2 ABG pO2 ABG HCO3 ABG O2 Saturation ABG Base Excess ABG Hemoglobin ABG Oxyhemoglobin ABG Sodium ABG Potassium ABG Chloride ABG Glucose Oxyhemoglobin Carboxyhemoglobin Sodium Potassium Chloride Carbon Dioxide BUN Creatinine Glucose POC Glucose 111 H 127 H 117 H Lactic Acid Calcium Phosphorus Magnesium Ferritin Direct Bilirubin AST ALT Alkaline Phosphatase Lactate Dehydrogenase Total Creatine Kinase C-Reactive Protein Total Protein Albumin Triglycerides Arterial Blood Glucose Arterial Blood Ionized Calcium Urine Creatinine Urine Chloride Vancomycin Trough Coronavirus (PCR) Crossmatch 07/29/20 07/30/20 07/30/20 23:07 17:32 23:13 WBC RBC Hgb Hct MCHC RDW Plt Count Lymph % (Auto) [place] % (Auto) Lymph # (Auto) [place] # (Auto) Eos # (Auto) Baso # (Auto) Seg Neutrophils % Seg Neuts % (Manual) Lymphocytes % (Manual) Monocytes % (Manual) Basophils % (Manual) Nucleated RBC % Seg Neutrophils # Seg Neutrophils # Man Lymphocytes # (Manual) Monocytes # (Manual) Eosinophils # (Manual) Basophils # (Manual) PT INR APTT D-Dimer Heparin Anti-Xa Level ABG pH POC ABG pCO2 POC ABG pO2 ABG pO2 ABG HCO3 ABG O2 Saturation ABG Base Excess ABG Hemoglobin ABG Oxyhemoglobin ABG Sodium ABG Potassium ABG Chloride ABG Glucose Oxyhemoglobin Carboxyhemoglobin Sodium Potassium Chloride Carbon Dioxide BUN Creatinine Glucose POC Glucose 116 H 107 H Lactic Acid Calcium Phosphorus Magnesium Ferritin Direct Bilirubin AST ALT Alkaline Phosphatase Lactate Dehydrogenase Total Creatine Kinase C-Reactive Protein Total Protein Albumin Triglycerides Arterial Blood Glucose Arterial Blood Ionized Calcium Urine Creatinine Urine Chloride Vancomycin Trough Coronavirus (PCR) Crossmatch See Detail 07/30/20 07/31/2021 Unknown 05:28 09:00 WBC 30.8 H RBC 2.39 L Hgb 7.3 L Hct 21.9 L MCHC RDW 16.7 H Plt Count Lymph % (Auto) [place] % (Auto) Lymph # (Auto) [place] # (Auto) Eos # (Auto) Baso # (Auto) Seg Neutrophils % Seg Neuts % (Manual) 85.0 H Lymphocytes % (Manual) 1.0 L Monocytes % (Manual) Basophils % (Manual) Nucleated RBC % 1.0 H Seg Neutrophils # Seg Neutrophils # Man 26.2 H Lymphocytes # (Manual) 0.3 L Monocytes # (Manual) 1.8 H Eosinophils # (Manual) Basophils # (Manual) PT INR APTT D-Dimer Heparin Anti-Xa Level ABG pH 7.241 L POC ABG pCO2 52.8 H POC ABG pO2 63.3 L ABG pO2 ABG HCO3 ABG O2 Saturation ABG Base Excess ABG Hemoglobin 7.6 L ABG Oxyhemoglobin ABG Sodium 133.6 L ABG Potassium ABG Chloride ABG Glucose 114 H Oxyhemoglobin Carboxyhemoglobin Sodium Potassium Chloride Carbon Dioxide BUN Creatinine Glucose POC Glucose Lactic Acid Calcium Phosphorus Magnesium Ferritin Direct Bilirubin AST ALT Alkaline Phosphatase Lactate Dehydrogenase Total Creatine Kinase C-Reactive Protein Total Protein Albumin Triglycerides 184 H Arterial Blood Glucose 114 H Arterial Blood Ionized Calcium 4.4 L Urine Creatinine Urine Chloride Vancomycin Trough Coronavirus (PCR) Crossmatch 07/31/20 07/31/20 07/31/20 09:00 12:00 16:17 WBC RBC Hgb Hct MCHC RDW Plt Count Lymph % (Auto) [place] % (Auto) Lymph # (Auto) [place] # (Auto) Eos # (Auto) Baso # (Auto) Seg Neutrophils % Seg Neuts % (Manual) Lymphocytes % (Manual) Monocytes % (Manual) Basophils % (Manual) Nucleated RBC % Seg Neutrophils # Seg Neutrophils # Man Lymphocytes # (Manual) Monocytes # (Manual) Eosinophils # (Manual) Basophils # (Manual) PT INR APTT D-Dimer Heparin Anti-Xa Level ABG pH POC ABG pCO2 POC ABG pO2 148.6 H ABG pO2 ABG HCO3 ABG O2 Saturation ABG Base Excess ABG Hemoglobin 6.7 L ABG Oxyhemoglobin ABG Sodium 132.3 L ABG Potassium ABG Chloride ABG Glucose 115 H Oxyhemoglobin Carboxyhemoglobin Sodium 136 L Potassium Chloride Carbon Dioxide BUN 46 H Creatinine 2.4 H Glucose POC Glucose 106 H Lactic Acid Calcium 7.7 L Phosphorus Magnesium Ferritin Direct Bilirubin AST ALT Alkaline Phosphatase Lactate Dehydrogenase Total Creatine Kinase C-Reactive Protein Total Protein Albumin Triglycerides Arterial Blood Glucose 115 H Arterial Blood Ionized Calcium 4.2 L Urine Creatinine Urine Chloride Vancomycin Trough Coronavirus (PCR) Crossmatch 07/31/20 08/01/20 08/01/20 17:05 04:48 05:00 WBC RBC Hgb Hct MCHC RDW Plt Count Lymph % (Auto) [place] % (Auto) Lymph # (Auto) [place] # (Auto) Eos # (Auto) Baso # (Auto) Seg Neutrophils % Seg Neuts % (Manual) Lymphocytes % (Manual) Monocytes % (Manual) Basophils % (Manual) Nucleated RBC % Seg Neutrophils # Seg Neutrophils # Man Lymphocytes # (Manual) Monocytes # (Manual) Eosinophils # (Manual) Basophils # (Manual) PT INR APTT D-Dimer Heparin Anti-Xa Level ABG pH POC ABG pCO2 POC ABG pO2 111.5 H ABG pO2 ABG HCO3 ABG O2 Saturation ABG Base Excess ABG Hemoglobin 7.1 L ABG Oxyhemoglobin ABG Sodium 131.4 L ABG Potassium ABG Chloride ABG Glucose 107 H Oxyhemoglobin Carboxyhemoglobin Sodium 135 L Potassium Chloride Carbon Dioxide BUN 56 H Creatinine 2.6 H Glucose 117 H POC Glucose 119 H Lactic Acid Calcium 7.8 L Phosphorus Magnesium Ferritin Direct Bilirubin AST ALT Alkaline Phosphatase Lactate Dehydrogenase Total Creatine Kinase C-Reactive Protein Total Protein Albumin Triglycerides Arterial Blood Glucose 107 H Arterial Blood Ionized Calcium 4.3 L Urine Creatinine Urine Chloride Vancomycin Trough Coronavirus (PCR) Crossmatch 08/01/20 08/01/20 08/01/20 05:00 11:53 17:38 WBC 22.0 H RBC 2.26 L Hgb 6.8 L Hct 20.5 L MCHC RDW 16.6 H Plt Count Lymph % (Auto) [place] % (Auto) Lymph # (Auto) [place] # (Auto) Eos # (Auto) Baso # (Auto) Seg Neutrophils % Seg Neuts % (Manual) Lymphocytes % (Manual) Monocytes % (Manual) Basophils % (Manual) Nucleated RBC % Seg Neutrophils # Seg Neutrophils # Man Lymphocytes # (Manual) Monocytes # (Manual) Eosinophils # (Manual) Basophils # (Manual) PT INR APTT D-Dimer Heparin Anti-Xa Level ABG pH POC ABG pCO2 POC ABG pO2 ABG pO2 ABG HCO3 ABG O2 Saturation ABG Base Excess ABG Hemoglobin ABG Oxyhemoglobin ABG Sodium ABG Potassium ABG Chloride ABG Glucose Oxyhemoglobin Carboxyhemoglobin Sodium Potassium Chloride Carbon Dioxide BUN Creatinine Glucose POC Glucose 107 H 111 H Lactic Acid Calcium Phosphorus Magnesium Ferritin Direct Bilirubin AST ALT Alkaline Phosphatase Lactate Dehydrogenase Total Creatine Kinase C-Reactive Protein Total Protein Albumin Triglycerides Arterial Blood Glucose Arterial Blood Ionized Calcium Urine Creatinine Urine Chloride Vancomycin Trough Coronavirus (PCR) Crossmatch 08/01/20 08/02/20 08/02/20 23:49 05:11 05:20 WBC 17.2 H RBC 2.73 L Hgb 8.3 L Hct 24.6 L MCHC RDW 16.0 H Plt Count Lymph % (Auto) [place] % (Auto) Lymph # (Auto) [place] # (Auto) Eos # (Auto) Baso # (Auto) Seg Neutrophils % Seg Neuts % (Manual) Lymphocytes % (Manual) Monocytes % (Manual) Basophils % (Manual) Nucleated RBC % Seg Neutrophils # Seg Neutrophils # Man Lymphocytes # (Manual) Monocytes # (Manual) Eosinophils # (Manual) Basophils # (Manual) PT INR APTT D-Dimer Heparin Anti-Xa Level ABG pH POC ABG pCO2 POC ABG pO2 ABG pO2 ABG HCO3 ABG O2 Saturation ABG Base Excess ABG Hemoglobin ABG Oxyhemoglobin ABG Sodium ABG Potassium ABG Chloride ABG Glucose Oxyhemoglobin Carboxyhemoglobin Sodium Potassium Chloride Carbon Dioxide BUN Creatinine Glucose POC Glucose 107 H 119 H Lactic Acid Calcium Phosphorus Magnesium Ferritin Direct Bilirubin AST ALT Alkaline Phosphatase Lactate Dehydrogenase Total Creatine Kinase C-Reactive Protein Total Protein Albumin Triglycerides Arterial Blood Glucose Arterial Blood Ionized Calcium Urine Creatinine Urine Chloride Vancomycin Trough Coronavirus (PCR) Crossmatch 08/02/20 08/03/20 08/03/20 11:24 04:00 04:10 WBC RBC Hgb Hct MCHC RDW Plt Count Lymph % (Auto) [place] % (Auto) Lymph # (Auto) [place] # (Auto) Eos # (Auto) Baso # (Auto) Seg Neutrophils % Seg Neuts % (Manual) Lymphocytes % (Manual) Monocytes % (Manual) Basophils % (Manual) Nucleated RBC % Seg Neutrophils # Seg Neutrophils # Man Lymphocytes # (Manual) Monocytes # (Manual) Eosinophils # (Manual) Basophils # (Manual) PT INR APTT D-Dimer Heparin Anti-Xa Level ABG pH POC ABG pCO2 POC ABG pO2 133.7 H ABG pO2 ABG HCO3 ABG O2 Saturation ABG Base Excess ABG Hemoglobin 8.1 L ABG Oxyhemoglobin ABG Sodium 130.0 L ABG Potassium ABG Chloride ABG Glucose 97 H Oxyhemoglobin Carboxyhemoglobin Sodium 134 L Potassium Chloride 97.3 L Carbon Dioxide BUN 70 H Creatinine 2.6 H Glucose 102 H POC Glucose 129 H Lactic Acid Calcium 8.1 L Phosphorus Magnesium Ferritin Direct Bilirubin AST ALT Alkaline Phosphatase Lactate Dehydrogenase Total Creatine Kinase C-Reactive Protein Total Protein Albumin Triglycerides Arterial Blood Glucose 97 H Arterial Blood Ionized Calcium Urine Creatinine Urine Chloride Vancomycin Trough Coronavirus (PCR) Crossmatch 08/03/20 08/03/20 08/03/20 09:14 11:41 17:46 WBC 17.8 H RBC 2.91 L Hgb 8.6 L Hct 26.3 L MCHC RDW 16.0 H Plt Count Lymph % (Auto) [place] % (Auto) Lymph # (Auto) [place] # (Auto) Eos # (Auto) Baso # (Auto) Seg Neutrophils % Seg Neuts % (Manual) Lymphocytes % (Manual) Monocytes % (Manual) Basophils % (Manual) Nucleated RBC % Seg Neutrophils # Seg Neutrophils # Man Lymphocytes # (Manual) Monocytes # (Manual) Eosinophils # (Manual) Basophils # (Manual) PT INR APTT D-Dimer Heparin Anti-Xa Level ABG pH POC ABG pCO2 POC ABG pO2 ABG pO2 ABG HCO3 ABG O2 Saturation ABG Base Excess ABG Hemoglobin ABG Oxyhemoglobin ABG Sodium ABG Potassium ABG Chloride ABG Glucose Oxyhemoglobin Carboxyhemoglobin Sodium Potassium Chloride Carbon Dioxide BUN Creatinine Glucose POC Glucose 117 H 109 H Lactic Acid Calcium Phosphorus Magnesium Ferritin Direct Bilirubin AST ALT Alkaline Phosphatase Lactate Dehydrogenase Total Creatine Kinase C-Reactive Protein Total Protein Albumin Triglycerides Arterial Blood Glucose Arterial Blood Ionized Calcium Urine Creatinine Urine Chloride Vancomycin Trough Coronavirus (PCR) Crossmatch 08/03/20 08/03/20 08/04/20 21:00 23:23 04:00 WBC 16.6 H RBC 2.69 L Hgb 7.8 L Hct 24.3 L MCHC RDW 16.1 H Plt Count Lymph % (Auto) [place] % (Auto) Lymph # (Auto) [place] # (Auto) Eos # (Auto) Baso # (Auto) Seg Neutrophils % Seg Neuts % (Manual) Lymphocytes % (Manual) Monocytes % (Manual) Basophils % (Manual) Nucleated RBC % Seg Neutrophils # Seg Neutrophils # Man Lymphocytes # (Manual) Monocytes # (Manual) Eosinophils # (Manual) Basophils # (Manual) PT INR APTT D-Dimer Heparin Anti-Xa Level ABG pH POC ABG pCO2 48.3 H POC ABG pO2 67.6 L ABG pO2 ABG HCO3 ABG O2 Saturation ABG Base Excess ABG Hemoglobin 9.8 L ABG Oxyhemoglobin 92.2 L ABG Sodium 133.5 L ABG Potassium ABG Chloride ABG Glucose 115 H Oxyhemoglobin Carboxyhemoglobin Sodium Potassium Chloride Carbon Dioxide BUN Creatinine Glucose POC Glucose 116 H Lactic Acid Calcium Phosphorus Magnesium Ferritin Direct Bilirubin AST ALT Alkaline Phosphatase Lactate Dehydrogenase Total Creatine Kinase C-Reactive Protein Total Protein Albumin Triglycerides Arterial Blood Glucose 115 H Arterial Blood Ionized Calcium 4.5 L Urine Creatinine Urine Chloride Vancomycin Trough Coronavirus (PCR) Crossmatch 08/04/20 08/04/20 08/04/20 05:00 05:26 11:52 WBC RBC Hgb Hct MCHC RDW Plt Count Lymph % (Auto) [place] % (Auto) Lymph # (Auto) [place] # (Auto) Eos # (Auto) Baso # (Auto) Seg Neutrophils % Seg Neuts % (Manual) Lymphocytes % (Manual) Monocytes % (Manual) Basophils % (Manual) Nucleated RBC % Seg Neutrophils # Seg Neutrophils # Man Lymphocytes # (Manual) Monocytes # (Manual) Eosinophils # (Manual) Basophils # (Manual) PT INR APTT D-Dimer Heparin Anti-Xa Level ABG pH POC ABG pCO2 POC ABG pO2 ABG pO2 ABG HCO3 ABG O2 Saturation ABG Base Excess ABG Hemoglobin ABG Oxyhemoglobin ABG Sodium ABG Potassium ABG Chloride ABG Glucose Oxyhemoglobin Carboxyhemoglobin Sodium Potassium Chloride Carbon Dioxide BUN Creatinine Glucose POC Glucose 110 H 124 H Lactic Acid Calcium Phosphorus Magnesium Ferritin Direct Bilirubin AST ALT Alkaline Phosphatase Lactate Dehydrogenase Total Creatine Kinase C-Reactive Protein Total Protein Albumin Triglycerides 262 H Arterial Blood Glucose Arterial Blood Ionized Calcium Urine Creatinine Urine Chloride Vancomycin Trough Coronavirus (PCR) Crossmatch Allied health notes reviewed: nursing
--- NOTE | 2020-08-04 13:38 | Progress Note ---
Assessment and Plan Pt remains ventilated and sedated, s/p trach and PEG. Telemetry reviewed: Aflutter HR 110-120s. Requiring vasopressors, wean as tolerated. Continue to hold AC in setting of severe anemia. Electrolyte management per nephrology. Pt for discharge to LTAC once medically stabilized. Cont supportive management. Overall poor prognosis. The patient has been seen in conjunction with Dr. Chavis who agrees with the assessment and plan of care. - Patient Problems (1) Acute respiratory failure with hypoxia Current Visit: Yes Status: Acute (2) Sepsis Current Visit: Yes Status: Acute Qualifiers: Severe sepsis acute organ dysfunction type: acute respiratory failure Severe sepsis shock status: with septic shock (3) Atrial fibrillation with rapid ventricular response Current Visit: Yes Status: Acute (4) Acute renal failure Current Visit: Yes Status: Acute (5) Pneumonia due to COVID-19 virus Current Visit: Yes Status: Acute (6) Elevated LFTs Current Visit: Yes Status: Acute (7) Hyperkalemia Current Visit: Yes Status: Acute (8) Anemia Current Visit: Yes Status: Acute Subjective Date of service: 08/04/20 Principal diagnosis: ARF; Septic Shock; COVID-19 PNA; Atrial fibrillation; Obesity Interval history: Pt remains ventilated and sedated, s/p trach and PEG Telemetry reviewed: Aflutter, HR 110-120s. Objective Last Vital Signs Temp 99 F 08/04/20 12:00 Pulse 102 H 08/04/20 12:03 Resp 19 08/04/20 12:03 BP 101/45 08/04/20 12:00 Pulse Ox 95 08/04/20 12:03 - Physical Examination General: Other (trached, sedated) Neck: Positive: neck supple Cardiac: Positive: irregularly irregular, S1/S2 Lungs: Positive: Ventilated Respirations Neuro: Positive: Other (trached, sedated) Abdomen: Positive: Unremarkable Skin: Negative: Rash, Wound Extremities: Present: upper extr. pulses, lower extr. pulses, +1 Edema - Labs and Meds Lipids 08/04/20 Range/Units 05:00 Triglycerides 262 H (2-149) mg/dL CBC 08/04/20 Range/Units 04:00 WBC 16.6 H (4.5-11.0) K/mm3 RBC 2.69 L (3.65-5.03) M/mm3 Hgb 7.8 L (11.8-15.2) gm/dl Hct 24.3 L (35.5-45.6) % Plt Count 237 (140-440) K/mm3 - Imaging and Cardiology EKG: report reviewed, image reviewed Echo: report reviewed (TDS, EF 55-60%. ) - Telemetry EKG Rhythm: Atrial Flutter - EKG Sinus rhythms and dysrhythmias: sinus tachycardia - Allied health notes Allied health notes reviewed: nursing
--- NOTE | 2020-08-04 14:35 | Progress Note ---
Assessment and Plan Assessment and plan: -S/p dexamethasone and remdesivir therapy, contact/droplet isolation, vitamin C/vitamin D/zinc, anticoagulation per protocol, trend inflammatory markers -Wean mechanical ventilation as tolerated, VAP bundle -HD per nephrology -Transfuse for hemaglobin less than 7, s/p 10 units PRBC during stay -Nephrology, ID, heme-onc, GI , CCM, cardiology consulted,appreciate recommendations -BCR-ABL mutation testing pending -Per infectious disease: s/p ampicillin. On cefepime, discontinued now on meropenem -Monitor leukocytosis and fevers -s/p RJ to trialysis line exchange over wire 08/02 -Resume systemic anticoagulation and monitor for anemia -Amiodarone for rate control -s/p debridement by Dr. Kirk, WOESPERANZA consulted, WC per nursing, 07/27 debridement repeated -07/22 COVID-19 PCR negative, discontinued contact/droplet isolation DVT prophylaxis: GI prophylaxis, heparin subcu, SCDs to bilateral LE while in b ed Disposition: ICU, ?placement ?trach/peg ?Ltach (Possible transfer to LTACH tomorrow) The high probability of a clinically significant, sudden or life threatening deterioration of the [multi] system(s) required my full and direct attention, intervention and personal management. The aggregate critical care time was [35] minutes. This time is in addition to time spent performing reported procedures but includes the following: [x] Data Review and interpretation [x] Patient assessment and monitoring of vital signs [x] Documentation [x] Medication orders and management History Interval history: 59-year-old white male who was admitted for pneumonia secondary to Covid with associated respiratory failure and sepsis. Severe septic shock COVID-19 pneumonia Sacral wound, stage 4 Leukemoid reaction Acute metabolic encephalopathy Acute hypoxic respiratory failure Enterococcus bacteremia MDR Pseudomonas in tracheal aspirate Pneumomediastinum Acute kidney injury likely secondary to acute tubular necrosis which progressed to hemodialysis SVT/proximal atrial fibrillation Elevated LFTs Anemia likely due to severe sepsis had declining renal function Morbid obesity Leukocytosis Hypoalbuminemia Sacral decubitus: s/p debridements 06/18: Patient got intubated overnight. Patient was placed on BiPAP to maintain oxygenation with 100% FiO2 but apparently he found to take off his argueta which made his oxygen saturation go down at 60s/50s and patient was found altered mental status. Code met was called immediately. Patient was transferred to ICU and intubated, patient currently on 2 pressors, intubated with 100% FiO2, renal function noted to be decline, nephrology consulted. Discussed with [place] physician Dr. Thompson and requested call back on Saturday. Poor prognosis, continue to monitor with aggressive supportive care. Also called family/ to update clinical status. 06/19: Repeat COVID test was positive. cont cefepime, remdesivir per ID recommendation. follow inflammatory markers, cbc, bmp. placed on heparin drip for atrial fib 06/20: Remains on mechanical ventilation, on 2 pressors, on heparin drip. discussed with and daughter by phone. Renal function declining. cont supportive care for now. 06/21: Renal function cont to decline, urine outpt sig decreased. started on lasix 80mg BID, plan to follow urine output, if no improvement patient need to start on HD. called and daughter today. updated all clinical details 06/22: Renal function continues to decline with uremia and hyperkalemia. Will need to proceed with hemodialysis. Nephrology discussed with the family and cortney agrees for the hemodialysis. Patient remains on pressor support and mechanical ventilation. Vas-Cath placed today by vascular started on hemodialysis today. 06/23: 2nd round of HD today, remains on 2 pressors. per RN not tolerating TF, has no record of BM since 06/18. start on stool softner. follow cbc/bmp. updated family ( and daughter) by phone -all question answered to best of my knowled ge and to their satisfaction. Patient remains critically ill with a very poor prognosis. 06/24: Continue supportive care, Very poor prognosis, Private Inquiry Agent to discuss with family in am due to the futility of the condition. 06/25/2020 continue supportive care very poor prognosis 06/26/2020 continue supportive care very poor prognosis family updated 06/27/2020 continue supportive care and weaning if possible 06/28/2020 continue supportive care, talk with at length 06/29: Resumed care. K level persistently high. give one dose of bicarbonate, plan for HD today, recheck k after HD. updated family by phone 06/30: updated family by phone. Patient remains on amiodarone drip and vasopressin. Getting HD at the bedside. Tolerating tube feeding at low rate. 07/01: Hb dropped to 6.4 today, transfuse one unit PRBC. patient is off pressor today, remains on amioderone. cont to monitor 07/02: Called patient and updated clinical details. Patient remains critically ill, still intubated. Patient's oxygen requirement and PEEP pressure has went down. Continue weaning protocol per critical care recommendation. Patient remains off pressor. Continue to wean off from amiodarone and plan to rate control with p.o. medications. Tolerating tube feeding. H&H stable today. Order for stool for occult blood. Monitor H&H and BMP. Continue to follow clinically 07/03: discussed with [place] physician today. Patient back on 100percent Fio2 since last night. planned for emergent Hd today. spiked fever, start IV Cefepime + Vancomycin renally dosed. Restarted Levophed today, remains on amiodarone drip. Patient family was updated by critical care attending today. 07/04: Patient has hemodialysis yesterday and also plan for today for volume overload and pulmonary edema. Patient currently on 80% FiO2. Remains on Levophed and amiodarone. Hemoglobin dropped to 6.7 without any evidence of active bleeding. LFTs remain stable. Repeat Covid test on 06/30 and 07/03 remains positive. Will transfuse another unit of packed RBC today. Called family for update -explained family that patient is critically ill with very poor prognosis. 07/05: Patient on 70% FiO2 with PEEP of 14. h/h stable after transfusion. hyperkalemia improved, cont sodiumbicarbonate pill with TF. follow BMP. off levophed today, remains on amioderone. poor prognosis. 07/06: Patient remains on amiodarone drip, maintaining BP without any pressor. FiO2 requirement trended down to 60% with PEEP of 14. Continue to follow clinically. Plan to wean off amiodarone drip as tolerated. Wean off from grant tion as tolerated. Updated family. Patient remains critically ill with poor prognosis. 07/07: Called family for update. Off amiodarone drip today, patient also off pressor. FiO2 requirement trended up again to 80-100%. Continue to provide supportive care, monitor clinically. Having difficulty to wean off from the vent support. Patient is persistently positive for COVID-19 and COVID-19 antibo dy is nonreactive. Patient remains critically ill with very poor prognosis. 07/08: Continue supportive care. 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 Prognosis remains guarded to poor. Management per team. Critical care time 35-minute 07/09/20 patient is tachycardic. Heart rate 121. Hemoglobin 7.3. Patient is having hemodialysis. Continue supportive care. Patient having difficulty to wean off from the vent support. Prognosis is poor. Nephrology and cardiology follow-up. Recheck CBC BMP in the morning. Continue current management. 07/10/20 patient seen and examined, remains on full ventilator patient is doing better. Patient is off pressor. heart rate 123. Hemoglobin 6.8 and hematocrit 20.7. WBC is 18.1. Continue supportive care. Patient having difficulty to wean off from the vent support. We will started on Zosyn 4.5 g IV every 8 hours. Will transfuse 1 unit of packed red blood cell. Prognosis is poor. Nephrology and cardiology follow up. Recheck CBC BMP in the morning 07/11: remains off vasopressor, h/h appropriately responded to 1 unit PRBC. HD tod ay. Remain on MV with fiO2 at 70%. peep 10. No acute events reported overnight. 07/12: Patient remains in atrial fibrillation on the ekg monitor tech, vasopressor support with Levophed and vasopressin, sedated with fentanyl and propofol. Vent settings: CMV 500/25/14/0.60. Patient remains hypercarbic on ABG 07/13: Patient remains on vasopressin, fentanyl and propofol with rectal tube in place. This morning some examination patient was on assist control 25/500/14/0.60. Patient received hemodialysis today. No acute events reported overnight. 07/14: Remains on vasopressin, fentanyl and propofol with tube in place. Rectal tube in place with noted blood clots, GI consulted, on 07/13 H/H dropped from 8.7/27 to 7.4/22 and anticoagulation discontinued. This morning I spoke to his who still wishes for the patient to remain a full code despite update with continued use of vasopressor (vasopressin), current ventilatory support (CMV 500/25/14/0.60) and recent development of rectal bleeding. Patient's family requests an update from [facility] and GI. Cardio changed amio from PO to IV given elevated HR 07/15: Today the patient received a total of 5 units of PRBC and is still having bleeding through his rectal tube. CTA abdomen/pelvis is pending, patient remains on Levophed, fentanyl, propofol, vasopressin and received hemodialysis today. He was also hyperkalemic today to 6 and he received insulin and D50. Extensive conversation with family conducted by CCM and hospitalist and his and 2 daughters did visit him today at the bedside. 07/16: Continues with full ventilatory support. FMS still inplace with some loose bloody stool. Still on multiple pressors, Bilateral swollen and generalized anascara. Monitor H/H and transfuse as needed. Monitor K level. Discussed with family at bedside yesterday. 07/17: Continue supportive care, transfusion blood possible in am with HD, continue abx, very poor prognosis, blood pressure still labile. Discussed with nurse at bedside 07/18: CTA abdomen/pelvis completed, antibiotics changed to Zosyn per infectious disease, remains on mechanical ventilation 450/25/12/0.55 continue amiodarone drip for 24 more hours, blood culture grew Enterococcus. Remains sedated on propofol and fentanyl. Not on vasopressor support today 07/19: No acute events reported overnight, remains sedated with fentanyl and propofol and off vasopressor therapy today. 07/20: s/p debridement with surgery today, remains on fentanyl, propofol, Levophed and current vent settings 450/25/10/0.45. Patient will be transferred to a bariatric bed once available. 07/21: Continue current management, wean ventilator as tolerated, IV antibiotics deescalated to ampicillin. Per infectious disease no need to exchange/remove lines unless repeat blood cultures turn positive. The time my examination patient was sedated on fentanyl and propofol and remains off vasopressor support. 07/22: At the time my examination patient is sedated on fentanyl and propofol and remains off vasopressor support, repeat COVID-19 PCR negative. Patient remains on ampicillin. H/H remained stable and GI has signed off. Mechanical ventilation weaning as tolerated. 07/23. He remains sedated on fentanyl and propofol. On mechanical ventilation. On levophed. repeat COVID-19 PCR negative. Patient remains on ampicillin. H/H remained stable and GI has signed off. 07/24. He remains sedated and on mechanical ventilation. On levophed. repeat COVID-19 PCR negative. On ampicillin. ID recs appreciated. Labs reviewed 07/25: Patient remains sedated on fentanyl and Diprivan and remains on mechanical ventilation. Repeat CXR and still has leukocytosis. Patient is n.p.o. for trach and PEG with surgery. 07/26: Remains sedated on fentanyl and propofol. Remains on vasopressor support with Levophed. Current vent settings CMV 450/20/8/0.40. Patient is scheduled for PEG/trach with surgery. No acute events reported overnight. 07/27: Debridement with surgery to sacrum:, Activity restarted, remains sedated o n propofol/fentanyl and Precedex support with Levophed. Current vent settings CMV 450/20/8/135. S/p trach/PEG with surgery 07/26. Patient remains afebrile however leukocytosis slightly worse today and he is still on his ampicillin. Patient was hypoglycemic overnight. 07/28: Patient remains sedated on propofol and fentanyl. Continue amiodarone drip for rate control. Patient be started on pressors of Levophed last evening. Patient currently with PSV/CPAP FiO2 35% PEEP of 8 and pressure support of 20. Wean mechanical ventilation as tolerated, VAP bundle. Continue hemodialysis per nephrology recommendations. Continue antibiotics per ID recommendations. Hold systemic anticoagulation in the setting of severe anemia. Patient with status post debridement on 07/27. 07/29: Continue sedation per pulmonary. Amiodarone drip for rate control. Continue vasopressors to maintain MAP > 65. Mechanical ventilation currently AC mode rate of 20 tidal volume 450, FiO2 35% and PEEP of 8. Wean mechanical ventilation as tolerated, VAP bundle. Continue hemodialysis per nephrology recommendations. Continue antibiotics per ID recommendations until 08/01/2020. Repeat blood cultures have been negative. Hold systemic anticoagulation in the setting of severe anemia. 07/30: Patient currently with AC mode rate of 14, tidal volume 450, FiO2 40% and PEEP of 8. Wean mechanical ventilation as tolerated, VAP bundle. Continue hemodialysis per nephrology recommendations. Continue antibiotics per ID recom mendations. Hold systemic anticoagulation in the setting of severe anemia. 07/31: Patient currently with AC mode ventilation rate 30, tidal volume 450 FiO2 100%, pressure support 16 and PEEP of 8. Wean mechanical ventilation as tolerated, VAP bundle. Continue hemodialysis per nephrology recommendations. Continue antibiotics per ID recommendations. Patient currently on ampicillin. Hold systemic anticoagulation in the setting of severe anemia. Continue restraints for safety. Continue pressors to maintain MAP > 65. Awaiting family decision to discharge to LTAC. 08/01: If patient develops worsening sepsis ID would like to initiate vancomycin and cefepime, and [facility] would like to add vasopressin. The time my examination patient is on assist control 450/30/8/.60 with an ABG of 7.3/42/111/21 with a base excess of -4. Patient remains sedated on propofol and fentanyl with vasopressor support with Levophed. No acute events reported overnight. Per vascular surgery if patient's blood cultures are positive will consider a Vas- Cath exchange on a clean wire with ChloraPrep during the exchange and attempt to decrease bioburden. No acute events reported overnight. Patient's H/H today was 6.8/20.5 and he will receive 1 unit PRBC and we will recheck CBC in the a.m. and transfuse as needed. 08/02: Right IJ dialysis catheter changed over wire, per [facility] ok to transfer to LTAC after next HD session and ID started cefepime. The time my examination patient remains on vasopressin and Levophed. Remains on assist control 450/30/H/0.60 with a T-max of 100.7 overnight. His sputum is growing GNR. 08/03: Tracheal aspirate from 08/03 shows heavy growth of gram-negative rods and patient is on cefepime. His IJ IVC was changed over wire to IJ dialysis yesterday. Patient remains on assist control 450/30/8/0.40 and sedated on propofol and fentanyl and the vasopressor support with Levophed. Patient received hemodialysis today. Patient remains in atrial flutter however his heart rate 110s and cardiology is aware. 08/04: At the time my examination patient was on vasopressin at 0.03 units and sedated with fentanyl and propofol. Current vent settings 450/25/8/0.40 and his rate was decreased per [facility]. RT to obtain ABG tonight. [facility] has restarted the patient on heparin subcu and we will monitor for bleeding. Patient is awaiting LTAC transfer. Infectious disease has started the patient on meropenem renally adjusted due to MDR Pseudomonas. Patient is status post debridement with surgery yesterday Hospitalist Physical - Physical exam Narrative exam: General appearance: Present: mild distress, well-nourished - EENT ENT: ulcerations - Respiratory Respiratory effort: normal Respiratory: bilateral: diminished - Cardiovascular Rhythm: regular Heart Sounds: Present: S1 & S2. Absent: systolic murmur, diastolic murmur - Extremities Extremities: no ischemia, pulses intact, pulses symmetrical, normal color Peripheral Pulses: within normal limits - Abdominal General gastrointestinal: soft, non-tender, non-distended, normal bowel sounds - Integumentary Integumentary: Present: dry, edema - Psychiatric Psychiatric: other (sedated) - Neurologic Neurologic: other (sedated) - Constitutional Vitals: Temp Pulse Resp BP Pulse Ox 99 F 112 H 22 130/58 93 08/04/20 12:00 08/04/20 14:00 08/04/20 14:00 08/04/20 14:00 08/04/20 14:00 General appearance: Present: no acute distress, well-nourished, other (Patient remains on mechanical ventilation) HEART Score - HEART Score Troponin: Troponin T < 0.010 ng/mL (0.00-0.029) 06/17/20 12:33 Results - Labs CBC & Chem 7: 08/04/20 04:00 08/03/20 04:00 Labs: Laboratory Last Values WBC 16.6 K/mm3 (4.5-11.0) H 08/04/20 04:00 RBC 2.69 M/mm3 (3.65-5.03) L 08/04/20 04:00 Hgb 7.8 gm/dl (11.8-15.2) L 08/04/20 04:00 Hct 24.3 % (35.5-45.6) L 08/04/20 04:00 MCV 91 fl (84-94) 08/04/20 04:00 MCH 29 pg (28-32) 08/04/20 04:00 MCHC 32 % (32-34) 08/04/20 04:00 RDW 16.1 % (13.2-15.2) H 08/04/20 04:00 Plt Count 237 K/mm3 (140-440) 08/04/20 04:00 Lymph % (Auto) 3.2 % (13.4-35.0) L 07/29/20 04:39 Page % (Auto) 7.0 % (0.0-7.3) 07/29/20 04:39 Eos % (Auto) 2.1 % (0.0-4.3) 07/29/20 04:39 Baso % (Auto) 1.2 % (0.0-1.8) 07/29/20 04:39 Lymph # (Auto) 1.2 K/mm3 (1.2-5.4) 07/29/20 04:39 Page # (Auto) 2.7 K/mm3 (0.0-0.8) H 07/29/20 04:39 Eos # (Auto) 0.8 K/mm3 (0.0-0.4) H 07/29/20 04:39 Baso # (Auto) 0.4 K/mm3 (0.0-0.1) H 07/29/20 04:39 Add Manual Diff Complete 07/31/20 09:00 Total Counted 100 07/31/20 09:00 Seg Neutrophils % 86.5 % (40.0-70.0) H 07/29/20 04:39 Seg Neuts % (Manual) 85.0 % (40.0-70.0) H 07/31/20 09:00 Band Neutrophils % 8.0 % 07/31/20 09:00 Lymphocytes % (Manual) 1.0 % (13.4-35.0) L 07/31/20 09:00 Reactive Lymphs % (Man) 1.0 % 06/23/20 04:00 Monocytes % (Manual) 6.0 % (0.0-7.3) 07/31/20 09:00 Eosinophils % (Manual) 4.0 % (0.0-4.3) 07/27/20 04:00 Basophils % (Manual) 1.0 % (0.0-1.8) 07/27/20 04:00 Metamyelocytes % 1.0 % 07/26/20 Unknown Myelocytes % 1.0 % 07/25/20 05:39 Promyelocytes % 0 % 07/17/20 15:25 Nucleated RBC % 1.0 % (0.0-0.9) H 07/31/20 09:00 Seg Neutrophils # 33.4 K/mm3 (1.8-7.7) H 07/29/20 04:39 Seg Neutrophils # Man 26.2 K/mm3 (1.8-7.7) H 07/31/20 09:00 Band Neutrophils # 2.5 K/mm3 07/31/20 09:00 Lymphocytes # (Manual) 0.3 K/mm3 (1.2-5.4) L 07/31/20 09:00 Abs React Lymphs (Man) 0.0 K/mm3 07/31/20 09:00 Monocytes # (Manual) 1.8 K/mm3 (0.0-0.8) H 07/31/20 09:00 Eosinophils # (Manual) 0.0 K/mm3 (0.0-0.4) 07/31/20 09:00 Basophils # (Manual) 0.0 K/mm3 (0.0-0.1) 07/31/20 09:00 Metamyelocytes # 0.0 K/mm3 07/31/20 09:00 Myelocytes # 0.0 K/mm3 07/31/20 09:00 Promyelocytes # 0.0 K/mm3 07/31/20 09:00 Blast Cells # 0.0 K/mm3 07/31/20 09:00 Pathologist Review 07/17/20 15:25 WBC Morphology Not Reportable 07/31/20 09:00 Hypersegmented Neuts Not Reportable 07/31/20 09:00 Hyposegmented Neuts Not Reportable 07/31/20 09:00 Hypogranular Neuts Not Reportable 07/31/20 09:00 Smudge Cells Not Reportable 07/31/20 09:00 Toxic Granulation Not Reportable 07/31/20 09:00 Toxic Vacuolation Not Reportable 07/31/20 09:00 Dohle Bodies Not Reportable 07/31/20 09:00 Pelger-Huet Anomaly Not Reportable 07/31/20 09:00 Carlito Rods Not Reportable 07/31/20 09:00 Platelet Estimate Consistent w auto 07/31/20 09:00 Clumped Platelets Not Reportable 07/31/20 09:00 Plt Clumps, EDTA Not Reportable 07/31/20 09:00 Large Platelets Not Reportable 07/31/20 09:00 Giant Platelets Not Reportable 07/31/20 09:00 Platelet Satelliting Not Reportable 07/31/20 09:00 Plt Morphology Comment Not Reportable 07/31/20 09:00 RBC Morphology Not Reportable 07/31/20 09:00 Dimorphic RBCs Not Reportable 07/31/20 09:00 Polychromasia Not Reportable 07/31/20 09:00 Hypochromasia Not Reportable 07/31/20 09:00 Poikilocytosis Not Reportable 07/31/20 09:00 Anisocytosis 1+ 07/31/20 09:00 Microcytosis Not Reportable 07/31/20 09:00 Macrocytosis Not Reportable 07/31/20 09:00 Spherocytes Not Reportable 07/31/20 09:00 Pappenheimer Bodies Not Reportable 07/31/20 09:00 Sickle Cells Not Reportable 07/31/20 09:00 Target Cells Not Reportable 07/31/20 09:00 Tear Drop Cells Not Reportable 07/31/20 09:00 Ovalocytes Not Reportable 07/31/20 09:00 Stomatocytes Few 07/27/20 04:00 Helmet Cells Not Reportable 07/31/20 09:00 Brothers-Fitzpatrick Bodies Not Reportable 07/31/20 09:00 [place] Rings Not Reportable 07/31/20 09:00 [place] Cells Not Reportable 07/31/20 09:00 Bite Cells Not Reportable 07/31/20 09:00 Crenated Cell Not Reportable 07/31/20 09:00 Elliptocytes Not Reportable 07/31/20 09:00 Acanthocytes (Spur) Not Reportable 07/31/20 09:00 Rouleaux Not Reportable 07/31/20 09:00 Hemoglobin C Crystals Not Reportable 07/31/20 09:00 Schistocytes Not Reportable 07/31/20 09:00 Malaria parasites Not Reportable 07/31/20 09:00 Victoriano Bodies Not Reportable 07/31/20 09:00 Hem Pathologist Commnt No 07/31/20 09:00 PT 15.3 Sec. (12.2-14.9) H 07/24/20 20:40 INR 1.21 (0.87-1.13) H 07/24/20 20:40 APTT 36.1 Sec. (24.2-36.6) 07/24/20 20:40 Fibrinogen 419 mg/dl (211-480) 07/15/20 08:21 D-Dimer 6608.00 ng/mlDDU (0-234) H 07/03/20 14:50 Heparin Anti-Xa Level < 0.10 U.I./ml (0.3-0.7) L 06/26/20 01:30 ABG pH 7.342 (7.320-7.450) 08/03/20 21:00 POC ABG pCO2 48.3 mmHg (32.0-48.0) H 08/03/20 21:00 ABG pCO2 44.4 mm Hg 07/28/20 14:31 POC ABG pO2 67.6 mmHg (83-108) L 08/03/20 21:00 ABG pO2 68.0 mm Hg (80.0-90.0) L 07/28/20 14:31 POC ABG HCO3 25.6 08/03/20 21:00 ABG HCO3 23.1 mmol/L (20.0-26.0) 07/28/20 14:31 ABG O2 Saturation 93.5 (0-100) 08/03/20 21:00 ABG O2 Content 11.4 (0.0-44) 07/28/20 14:31 POC ABG Base Excess -0.4 08/03/20 21:00 ABG Base Excess -2.7 mmol/L (-2.0-3.0) L 07/28/20 14:31 ABG Hemoglobin 9.8 (12.0-17.5) L 08/03/20 21:00 ABG Oxyhemoglobin 92.2 (94-98) L 08/03/20 21:00 ABG Carboxyhemoglobin 2.2 % (0.0-5.0) 07/28/20 14:31 ABG Methemoglobin 0.3 (0.0-1.5) 08/03/20 21:00 ABG Sodium 133.5 mmol/L (136.0-145.0) L 08/03/20 21:00 ABG Potassium 3.5 mmol/L (3.40-4.50) 08/03/20 21:00 ABG Chloride 101.0 mmol/L (98-107) 08/03/20 21:00 ABG Glucose 115 mg/dL (65-95) H 08/03/20 21:00 Oxyhemoglobin 89.9 % (95.0-99.0) L 07/28/20 14:31 Carboxyhemoglobin 1.1 (0.5-1.5) 08/03/20 21:00 FiO2 35 % 07/28/20 14:31 FiO2 % 40.0 08/03/20 21:00 Sodium 134 mmol/L (137-145) L 08/03/20 04:00 Potassium 3.7 mmol/L (3.6-5.0) 08/03/20 04:00 Chloride 97.3 mmol/L (98-107) L 08/03/20 04:00 Carbon Dioxide 23 mmol/L (22-30) 08/03/20 04:00 Anion Gap 17 mmol/L 08/03/20 04:00 BUN 70 mg/dL (9-20) H 08/03/20 04:00 Creatinine 2.6 mg/dL (0.8-1.3) H 08/03/20 04:00 Estimated GFR 30 ml/min 08/03/20 04:00 BUN/Creatinine Ratio 27 % 08/03/20 04:00 Glucose 102 mg/dL (75-100) H 08/03/20 04:00 POC Glucose 124 mg/dL (70-105) H 08/04/20 11:52 Lactic Acid 0.90 mmol/L (0.7-2.0) 07/23/20 Unknown Calcium 8.1 mg/dL (8.4-10.2) L 08/03/20 04:00 Phosphorus 9.40 mg/dL (2.5-4.5) H 06/30/20 03:50 Magnesium 2.70 mg/dL (1.7-2.3) H 06/18/20 20:33 Ferritin 1171.0 ng/mL (30.0-300.0) H 07/03/20 14:50 Total Bilirubin 0.20 mg/dL (0.1-1.2) 07/24/20 06:40 Direct Bilirubin 0.5 mg/dL (0-0.2) H 07/05/20 08:21 Indirect Bilirubin 0.1 mg/dL 07/05/20 08:21 AST 46 units/L (5-40) H 07/24/20 06:40 ALT 74 units/L (7-56) H 07/24/20 06:40 Alkaline Phosphatase 180 units/L (35-129) H 07/24/20 06:40 Lactate Dehydrogenase 525 units/L (91-180) H 07/03/20 14:50 Total Creatine Kinase 618 units/L (55-170) H 06/29/20 Unknown Troponin T < 0.010 ng/mL (0.00-0.029) 06/17/20 12:33 C-Reactive Protein 31.50 mg/dL (0.00-1.30) H 07/03/20 14:50 Total Protein 4.6 g/dL (6.3-8.2) L 07/24/20 06:40 Albumin 2.0 g/dL (3.9-5) L 07/24/20 06:40 Albumin/Globulin Ratio 0.8 % 07/24/20 06:40 Triglycerides 262 mg/dL (2-149) H 08/04/20 05:00 Procalcitonin 6.05 ng/mL (<0.15) 07/13/20 06:59 Arterial Blood Glucose 115 mg/dL (65-95) H 08/03/20 21:00 Arterial Blood Ionized Calcium 4.5 mg/dL (4.6-5.3) L 08/03/20 21:00 Urine Color Yellow (Yellow) 06/17/20 15:57 Urine Turbidity Clear (Clear) 06/17/20 15:57 Urine pH 6.0 (5.0-7.0) 06/17/20 15:57 Ur Specific Boswell 1.019 (1.003-1.030) 06/17/20 15:57 Urine Protein 30 mg/dl mg/dL (Negative) 06/17/20 15:57 Urine Glucose (UA) Neg mg/dL (Negative) 06/17/20 15:57 Urine Ketones Neg mg/dL (Negative) 06/17/20 15:57 Urine Blood Sm (Negative) 06/17/20 15:57 Urine Nitrite Neg (Negative) 06/17/20 15:57 Ur Reducing Substances Not Reportable 06/17/20 15:57 Urine Bilirubin Neg (Negative) 06/17/20 15:57 Urine Ictotest Not Reportable 06/17/20 15:57 Urine Urobilinogen < 2.0 mg/dL (<2.0) 06/17/20 15:57 Ur Leukocyte Esterase Neg (Negative) 06/17/20 15:57 Urine WBC (Auto) 1.0 /HPF (0.0-6.0) 06/17/20 15:57 Urine RBC (Auto) 2.0 /HPF (0.0-6.0) 06/17/20 15:57 Urine Mucus Few /HPF 06/17/20 15:57 Urine Creatinine 192.4 mg/dL (0.1-20.0) H 06/18/20 15:00 Urine Sodium 28 mmol/L 06/18/20 15:00 Urine Chloride 31.1 mmolL (110-250) L 06/18/20 15:00 Nasal Screen MRSA (PCR) Negative (Negative) 06/19/20 10:38 Vancomycin Trough 22.7 ug/mL (5.0-20.0) H 06/20/20 08:25 Random Vancomycin 13.5 ug/mL (0-40.0) 07/16/20 07:17 Coronavirus (PCR) Negative (Negative) 07/22/20 Unknown Hepatitis A IgM Ab Non-reactive (NonReactive) 06/22/20 17:00 Hep Bs Antigen Non-reactive (Negative) 06/22/20 17:00 Hep B Core IgM Ab Non-reactive (NonReactive) 06/22/20 17:00 Hepatitis C Antibody Non-reactive (NonReactive) 06/22/20 17:00 SARS-CoV-2 IgG Ab Nonreactive (NonReactive) 07/04/20 05:20 Blood Type A POSITIVE 07/30/20 23:13 Antibody Screen Negative 07/30/20 23:13 Crossmatch See Detail 07/30/20 23:13 Microbiology: Microbiology 08/01/20 08:15 Tracheal Aspirate Sputum Culture - Preliminary Pseudomonas Aeruginosa 07/31/20 16:16 Peripheral/Venous Blood Culture - Preliminary NO GROWTH AFTER 72 HOURS 07/31/20 16:15 Peripheral/Venous Blood Culture - Preliminary NO GROWTH AFTER 72 HOURS - Diagnostic Impressions Diagnostic Impressions: Echocardiogram 06/29/20 06:00 Transthoracic Echocardiogram Indication: A-fib BP: 105/47 HR: 99 Conclusions *The study is technically very difficult and limited due to poor acoustic windows. *Global left ventricular wall motion and contractility are within normal limits. *The estimated ejection fraction is 55-60%. *There is no pericardial effusion. Findings Procedure Info: The study quality is technically difficult. The study is technically limited due to poor acoustic windows. Left Ventricle: Global left ventricular wall motion and contractility are within normal limits. Global left ventricular systolic function is normal. The estimated ejection fraction is 55-60%. Left Atrium: The left atrium is not well visualized. Right Ventricle: The right ventricle is not well visualized. Right Atrium: The right atrium is not well visualized. Aortic Valve: The aortic valve is not well visualized. Mitral Valve: The mitral valve is not well visualized. Tricuspid Valve: The tricuspid valve is not well visualized. Pulmonic Valve: The pulmonic valve is not well visualized. Pericardium: There is no pericardial effusion. Venous: There is no change in the dimension of the inferior vena cava with respiration consistent with markedly increased right atrial pressure. Newell/IV: Voiding Method Incontinent Active Medications - Current Medications Current Medications: Generic Name Dose Route Start Last Admin Trade Name Freq PRN Reason Stop Dose Admin Acetaminophen 650 mg 06/17/20 14:17 08/02/20 06:00 Acetaminophen 325 Mg Tab PO 650 mg Q4H PRN Administration Pain MILD(1-3)/Fever >100.5/ROBERTS Albuterol 2.5 mg 07/19/20 12:15 Albuterol 2.5 Mg/3 Ml Nebu IH Q6HRT PRN Shortness Of Breath Alteplase, Recombinant 2 mg 07/27/20 18:40 Alteplase 2 Mg Inj IV PAM PRN LINE FLUSH Amiodarone HCl 200 mg 07/19/20 14:00 08/04/20 09:27 Amiodarone 200 Mg Tab PO 200 mg BID CONNOR Administration Lipase/Protease/Amylase 1 each 06/19/20 12:15 Lipase 10,500/Protease 25,000/Amylase 43,750 (Units) Dr Kulkarni FEEDTUBE PRN PRN For Clogged Feeding Tube Ascorbic Acid 250 mg 06/17/20 22:00 08/04/20 09:27 Ascorbic Acid 250 Mg Tab PO 250 mg BID CONNOR Administration Cholecalciferol 1,000 unit 06/18/20 10:00 08/04/20 09:27 Cholecalciferol (Vit D3) 1000 Unit (25 Mcg) Tab PO 1,000 unit DAILY CONNOR Administration Dextrose 50 ml 07/26/20 22:00 07/27/20 06:42 Dextrose 50% In Water (25gm) 50 Ml Syringe IV 50 ml Q30MIN PRN Administration Hypoglycemia Protocol Docusate Sodium 100 mg 06/23/20 15:00 08/04/20 09:27 Docusate Sodium 100 Mg/10 Ml Oral Liqd FEEDTUBE 100 mg BID CONNOR Administration Fentanyl 50 mcg 06/18/20 01:02 07/27/20 16:59 Fentanyl 100 Mcg/2 Ml Inj IV 50 mcg Q10MIN PRN Administration ANALGESIA Heparin Sodium (Porcine) 5,000 unit 06/22/20 12:53 07/28/20 20:45 Heparin 10,000 Unit/1 Ml Vial IV 5,000 unit PAM PRN Administration hemodialysis Hydrophilic Ointment 1 applic 06/17/20 22:52 07/12/20 20:22 Lip Therapy Vaseline TP 1 applic Q2HR PRN Administration Dry Lips Propofol 1,000 mg in 100 mls @ 3.402 mls/hr 06/18/20 01:00 08/04/20 13:39 Diprivan 10 Mg/Ml IV 20 mcg/kg/min TITR CONNOR 13.608 mls/hr Administration Protocol 5 MCG/KG/MIN Fentanyl Citrate 2,000 mcg in 100 mls @ 8 mls/hr 06/18/20 02:00 08/04/20 13:40 Fentanyl Drip Premix IV 4 mcg/kg/hr TITR CONNOR 32 mls/hr Administration Protocol 1 MCG/KG/HR Norepinephrine 4 mg in 250 mls @ 7.5 mls/hr 07/08/20 02:06 08/04/20 12:40 Levophed Drip 4 Mg/Ns 250 Ml IV 4 mcg/min TITR CONNOR 15 mls/hr Titration Protocol 2 MCG/MIN Vasopressin 20 unit/ Sodium 101 mls @ 9.09 mls/hr 07/11/20 11:00 08/04/20 11:43 Chloride IV 0 units/min TITR CONNOR 0 mls/hr Titration Protocol 0.03 UNITS/MIN Amiodarone HCl 900 mg/ 500 mls @ 33.333 mls/hr 07/27/20 17:00 07/31/20 17:58 Dextrose IV 0.5 mg/min DIRECT CONNOR 16.667 mls/hr Administration Protocol 1 MG/MIN Sodium Chloride 100 mls @ 999 mls/hr 07/27/20 18:40 Nacl 0.9% IV PAM PRN Hypotension Meropenem 1,000 mg/ Sodium 100 mls @ 100 mls/hr 08/04/20 12:00 08/04/20 12:32 Chloride IV 100 mls/hr Q24HR CONNOR Administration Protocol Insulin Human Regular 0 units 06/18/20 12:00 08/04/20 12:15 Insulin Regular, Human 100 Units/1 Ml SUB-Q Not Given Q6HR [facility] Protocol Midodrine 10 mg 08/03/20 14:00 08/04/20 13:39 Midodrine 5 Mg Tab PO 10 mg TID CONNOR Administration Multi-Ingred Cream/Lotion/Oil/Oint 1 applic 06/17/20 22:52 07/12/20 20:22 Mineral Oil/Petrolatum, White Ophth Oint 3.5 Gm OU 1 applic Q4HR PRN Administration Dry Eye(s) Ondansetron HCl 4 mg 06/17/20 14:17 Ondansetron 4 Mg/2 Ml Inj IV Q8H PRN Nausea And Vomiting Pantoprazole Sodium 40 mg 07/16/20 22:00 08/04/20 09:27 Pantoprazole 40 Mg Inj IV 40 mg BID CONNOR Administration Polyethylene Glycol 17 gm 06/23/20 15:00 08/04/20 09:27 Polyethylene Glycol 3350 17 Gm Powder PO 17 gm QDAY CONNOR Administration Quetiapine Fumarate 200 mg 06/28/20 13:00 08/04/20 09:27 Quetiapine 200 Mg Tab PO 200 mg BID CONNOR Administration Scopolamine 1 each 07/29/20 14:00 08/04/20 09:27 Scopolamine Transdermal Patch 72 Hr TD 1 each Q3D CONONR Administration Simple Syrup 15 ml 06/19/20 12:15 07/26/20 13:55 Simple Syrup 15 Ml FEEDTUBE 15 ml PRN PRN Administration Hypoglycemia Simple Syrup 30 ml 06/19/20 12:15 07/19/20 06:04 Simple Syrup 15 Ml FEEDTUBE 30 ml PRN PRN Administration Hypoglycemia Sodium Bicarbonate 325 mg 06/19/20 12:15 07/11/20 20:00 Sodium Bicarbonate 325 Mg Tab FEEDTUBE 325 mg PRN PRN Administration For Clogged Feeding Tube Sodium Chloride 10 ml 06/17/20 22:00 08/04/20 09:26 Sodium Chloride 0.9% 10 Ml Flush Syringe IV 10 ml BID CONNOR Administration Sodium Chloride 10 ml 06/17/20 14:17 07/30/20 09:46 Sodium Chloride 0.9% 10 Ml Flush Syringe IV 10 ml PRN PRN Administration LINE FLUSH Sodium Hypochlorite 1 applic 07/20/20 10:00 08/04/20 10:52 Sodium Hypochlorite, Dakin's 1/2 Strength (0.25%) 473 Ml Topical Soln TP 1 applicatio BID CONNOR Administration Zinc Sulfate 220 mg 06/17/20 22:00 08/04/20 09:27 Zinc Sulfate 220 Mg Cap PO 220 mg BID CONNOR Administration Nutrition/Malnutrition Assess - Dietary Evaluation Nutrition/Malnutrition Findings: Nutrition Notes Start: 06/18/20 10:28 Freq: Status: Active Protocol: Document 08/04/20 10:43 [facility] (Rec: 08/04/20 10:52 [facility] [id number]) Nutrition Notes Initial or Follow up Brief Note Current Diet Nepro at 55ml/hr Labs/Tests TG 262 Height 6 ft Weight 152.6 kg [place] Body Weight (kg) 80.90 BMI 45.6 Subjective/Other Information Pt is s/p debridement of stage 4 pressure ulcer on yesterday . Pt accepted to LTAC facility; transfer pending pt' s medical stability. He remains on vent support. Is patient on ventilator? Yes Is Patient Ambulatory and/or Out of Bed No REE-([facility]-confined to bed) 2840.916 Kcal/Kg value to use for calculation 14 Approximate Energy Requirements Using 2136 kcal/Kg Calculation Used for Recommendations Kcal/kg Additional Notes Pro needs: up to 2.5g/kg IBW: up to 202g/day Fluid needs: 1-1.5L/day Nutrition Intervention Follow-Up By: 08/09/20 Additional Comments F/U: stable TF, vent status, pressor support, Gee administration
--- NOTE | 2020-08-04 16:44 | Progress Note ---
Assessment and Plan - Patient Problems (1) Acute renal failure Current Visit: Yes Status: Acute Qualifiers: Acute renal failure type: with acute tubular necrosis Qualified Code(s): N17.0 - Acute kidney failure with tubular necrosis Plan to address problem: Likely prerenal in nature secondary to new onset of COVID-19 pneumonia with worsening sepsis and hypotension. Concern for acute tubular necrosis. Has now been on HD with no significant findings of renal recovery at present time. He is also requiring extra isolated UF treatments to further optimize his volume status. No signs of renal recovery at this point. Concern for possible worsening sepsis and recommendations per ID for removal of vas catheter as well as right IJ. His femoral Vas-Cath has been removed and his right IJ has been converted to dialysis catheter over guidewire. new catheter is working without any acute issues. We will continue to monitor. Pending possible discharge to LTAC. (2) Pneumonia due to COVID-19 virus Current Visit: Yes Status: Acute Plan to address problem: Management per infectious disease recommendations. (3) Acute respiratory failure with hypoxia Current Visit: Yes Status: Acute Plan to address problem: Patient underwent tracheostomy. Further management per pulmonary. (4) Anemia Current Visit: Yes Status: Acute Qualifiers: Other causes of anemia: acute posthemorrhagic Plan to address problem: Transfuse to maintain Hgb >7.0. (5) Hyperkalemia Current Visit: Yes Status: Acute Plan to address problem: Manage with HD. Subjective Date of service: 08/04/20 Principal diagnosis: ARF; Septic Shock; COVID-19 PNA; Atrial fibrillation; Obesity Interval history: no acute changes. Pending discharge to LTAC. Remains on pressor treatment this morning. Receiving hemodialysis with goal ultrafiltration of 3 L. Objective - Vital Signs Vital signs: Vital Signs - 12hr 08/04/20 08/04/20 08/04/20 05:00 05:30 06:00 Temperature 99.9 F H Pulse Rate 127 H 120 H 115 H Pulse Rate [ From Monitor] Respiratory 19 27 H 25 H Rate Blood Pressure 119/58 107/50 109/53 O2 Sat by Pulse 92 93 94 Oximetry O2 Sat by Pulse Oximetry [ Anterior Bilateral Throughout] O2 Sat by Pulse Oximetry [ Assessment] 08/04/20 08/04/20 08/04/20 06:30 07:00 07:29 Temperature Pulse Rate 110 H 103 H 106 H Pulse Rate [ From Monitor] Respiratory 22 25 H Rate Blood Pressure 101/46 97/52 O2 Sat by Pulse 94 95 Oximetry O2 Sat by Pulse Oximetry [ Anterior Bilateral Throughout] O2 Sat by Pulse Oximetry [ Assessment] 08/04/20 08/04/20 08/04/20 07:30 08:00 08:05 Temperature 99.1 F 99.1 F Pulse Rate 104 H 97 H 100 H Pulse Rate [ From Monitor] Respiratory 25 H 25 H 24 Rate Blood Pressure 103/48 103/51 110/57 O2 Sat by Pulse 96 96 Oximetry O2 Sat by Pulse 96 Oximetry [ Anterior Bilateral Throughout] O2 Sat by Pulse Oximetry [ Assessment] 08/04/20 08/04/20 08/04/20 08:20 08:23 08:30 Temperature Pulse Rate 100 H 89 98 H Pulse Rate [ From Monitor] Respiratory 12 Rate Blood Pressure 110/57 110/51 118/59 O2 Sat by Pulse 97 98 Oximetry O2 Sat by Pulse Oximetry [ Anterior Bilateral Throughout] O2 Sat by Pulse 97 Oximetry [ Assessment] 08/04/20 08/04/20 08/04/20 08:39 08:45 09:00 Temperature Pulse Rate 103 H 105 H Pulse Rate [ 88 From Monitor] Respiratory 24 19 Rate Blood Pressure 126/59 126/59 O2 Sat by Pulse 95 95 Oximetry O2 Sat by Pulse Oximetry [ Anterior Bilateral Throughout] O2 Sat by Pulse Oximetry [ Assessment] 08/04/20 08/04/20 08/04/20 09:15 09:30 09:45 Temperature Pulse Rate 100 H 104 H 113 H Pulse Rate [ From Monitor] Respiratory 16 Rate Blood Pressure 113/52 116/53 106/51 O2 Sat by Pulse 95 Oximetry O2 Sat by Pulse Oximetry [ Anterior Bilateral Throughout] O2 Sat by Pulse Oximetry [ Assessment] 08/04/20 08/04/20 08/04/20 10:00 10:15 10:30 Temperature Pulse Rate 108 H 101 H 112 H Pulse Rate [ From Monitor] Respiratory 20 20 Rate Blood Pressure 121/56 117/51 98/60 O2 Sat by Pulse 100 97 Oximetry O2 Sat by Pulse Oximetry [ Anterior Bilateral Throughout] O2 Sat by Pulse Oximetry [ Assessment] 08/04/20 08/04/20 08/04/20 10:45 11:00 11:15 Temperature Pulse Rate 105 H 106 H 106 H Pulse Rate [ From Monitor] Respiratory 19 Rate Blood Pressure 99/54 90/60 98/53 O2 Sat by Pulse 97 Oximetry O2 Sat by Pulse Oximetry [ Anterior Bilateral Throughout] O2 Sat by Pulse Oximetry [ Assessment] 08/04/20 08/04/20 08/04/20 11:25 11:27 11:30 Temperature Pulse Rate 107 H 108 H 103 H Pulse Rate [ From Monitor] Respiratory 21 Rate Blood Pressure 98/53 92/55 99/60 O2 Sat by Pulse 97 97 Oximetry O2 Sat by Pulse Oximetry [ Anterior Bilateral Throughout] O2 Sat by Pulse Oximetry [ Assessment] 08/04/20 08/04/20 08/04/20 11:41 12:00 12:03 Temperature 99.1 F 99 F Pulse Rate 102 H 102 H 102 H Pulse Rate [ 102 H From Monitor] Respiratory 18 20 19 Rate Blood Pressure 99/60 101/45 O2 Sat by Pulse 95 95 Oximetry O2 Sat by Pulse 96 Oximetry [ Anterior Bilateral Throughout] O2 Sat by Pulse Oximetry [ Assessment] 08/04/20 08/04/20 08/04/20 12:30 13:00 13:30 Temperature Pulse Rate 113 H 112 H 114 H Pulse Rate [ From Monitor] Respiratory 21 19 37 H Rate Blood Pressure 112/45 115/37 150/69 O2 Sat by Pulse 97 98 94 Oximetry O2 Sat by Pulse Oximetry [ Anterior Bilateral Throughout] O2 Sat by Pulse Oximetry [ Assessment] 08/04/20 08/04/20 08/04/20 14:00 15:15 15:17 Temperature Pulse Rate 112 H 121 H Pulse Rate [ From Monitor] Respiratory 22 Rate Blood Pressure 130/58 117/50 O2 Sat by Pulse 93 94 Oximetry O2 Sat by Pulse Oximetry [ Anterior Bilateral Throughout] O2 Sat by Pulse 94 Oximetry [ Assessment] - General Appearance General appearance: chronically ill, intubated EENT: ATNC Neck: no JVD Cardiology: irregularly irregular Gastrointestinal: normal Musculoskeletal: deferred - Lab 08/04/20 04:00 08/03/20 04:00 Most recent lab results ABG pH 7.342 (7.320-7.450) 08/03/20 21:00 ABG pCO2 44.4 mm Hg 07/28/20 14:31 ABG pO2 68.0 mm Hg (80.0-90.0) L 07/28/20 14:31 ABG HCO3 23.1 mmol/L (20.0-26.0) 07/28/20 14:31 ABG O2 Saturation 93.5 (0-100) 08/03/20 21:00 Calcium 8.1 mg/dL (8.4-10.2) L 08/03/20 04:00 Phosphorus 9.40 mg/dL (2.5-4.5) H 06/30/20 03:50 Magnesium 2.70 mg/dL (1.7-2.3) H 06/18/20 20:33 Urine Creatinine 192.4 mg/dL (0.1-20.0) H 06/18/20 15:00 Urine Sodium 28 mmol/L 06/18/20 15:00 - Allied health notes Allied health notes reviewed: nursing Medications & Allergies - Medications Allergies/Adverse Reactions: Allergies No Known Allergies Allergy (Unverified 06/17/20 14:24) Home Medications: Home Medications Medication Instructions Recorded Confirmed Last Taken Type ALBUTEROL NEB's [Proventil 0.083% 2.5 mg IH Q6HRT PRN nebu 08/02/20 Unknown Rx NEBS] Acetaminophen [Acetaminophen TAB] 650 mg PO Q4H PRN tablet 08/02/20 Unknown Rx Amiodarone [Cordarone 200 MG TAB] 200 mg PO BID tablet 08/02/20 Unknown Rx Ascorbic Acid [Vitamin C] 250 mg PO BID tablet 08/02/20 Unknown Rx Cholecalciferol Vit D3 [Vitamin D3 1,000 unit PO DAILY tablet 08/02/20 Unknown Rx 1,000 UNIT TAB] Dextrose 50% in Water [D50W (25GM) 50 ml IV Q30MIN PRN syringe 08/02/20 Un known Rx Syringe] Docusate Sodium [Colace ORAL LIQ] 100 mg FEEDTUBE BID oral.liqd 08/02/20 Unknown Rx Epoetin Solitario-Epbx 10,000 Unit 10,000 unit IV PAM PRN vial 08/02/20 Unknown Rx [Retacrit] Heparin 5,000 unit IV PAM PRN vial 08/02/20 Unknown Rx Insulin Regular, Human [HumuLIN R] 0 units SUB-Q Q6HR units 08/02/20 Unknown Rx Lipase/Protease/Amylase [Pancreaze 1 each FEEDTUBE PRN PRN capsule 08/02/[address] 10,500 Unit] Min Oil/Petrolatum [Artificial 1 applic OU Q4HR PRN tube 08/02/20 Unknown Rx Tears Ophth Oint] Pantoprazole [Protonix INJ] 40 mg IV BID vial 08/02/20 Unknown Rx Petrolatum,White [Vaseline Lip 1 applic TP Q2HR PRN tube 08/02/20 Unknown Rx Therapy] QUEtiapine [SEROquel] 200 mg PO BID tablet 08/02/20 Unknown Rx Scopolamine [Transderm-Scop] 1 each TD Q3D patch 08/02/20 Unknown Rx Simple Syrup 15 ml FEEDTUBE PRN PRN oral.liqd 08/02/20 Unknown Rx Simple Syrup 30 ml FEEDTUBE PRN PRN oral.liqd 08/02/20 Unknown Rx Sodium Bicarbonate 325 mg FEEDTUBE PRN PRN tablet 08/02/20 Unknown Rx Sodium Chloride 0.9% Int [Sodium 10 ml IV BID syringe 08/02/20 Unknown Rx Chloride Flush Syringe 10 ml] Sodium Chloride 0.9% Int [Sodium 10 ml IV PRN PRN syringe 08/02/20 Unknown Rx Chloride Flush Syringe 10 ml] Sodium Hypochlorite [Dakin's Half 1 applic TP BID bottle 08/02/20 Unknown Rx Strength] Vasopressin [Vasostrict] 20 unit IV TITR vial 08/02/20 Unknown Rx Zinc Sulfate 220 mg PO BID capsule 08/02/20 Unknown Rx polyethylene glycoL 3350 [Miralax 17 gm PO QDAY powd.pack 08/02/20 Unknown Rx 3350] Active Medications: Generic Name Dose Route Start Last Admin Trade Name Jacobyq PRN Reason Stop Dose Admin Acetaminophen 650 mg 06/17/20 14:17 08/02/20 06:00 Acetaminophen 325 Mg Tab PO 650 mg Q4H PRN Administration Pain MILD(1-3)/Fever >100.5/ROBERTS Albuterol 2.5 mg 07/19/20 12:15 Albuterol 2.5 Mg/3 Ml Nebu IH Q6HRT PRN Shortness Of Breath Alteplase, Recombinant 2 mg 07/27/20 18:40 Alteplase 2 Mg Inj IV PAM PRN LINE FLUSH Amiodarone HCl 200 mg 07/19/20 14:00 08/04/20 09:27 Amiodarone 200 Mg Tab PO 200 mg BID CONNOR Administration Lipase/Protease/Amylase 1 each 06/19/20 12:15 Lipase 10,500/Protease 25,000/Amylase 43,750 (Units) Dr Cap FEEDTUBE PRN PRN For Clogged Feeding Tube Ascorbic Acid 250 mg 06/17/20 22:00 08/04/20 09:27 Ascorbic Acid 250 Mg Tab PO 250 mg BID CONNOR Administration Cholecalciferol 1,000 unit 06/18/20 10:00 08/04/20 09:27 Cholecalciferol (Vit D3) 1000 Unit (25 Mcg) Tab PO 1,000 unit DAILY CONNOR Administration Dextrose 50 ml 07/26/20 22:00 07/27/20 06:42 Dextrose 50% In Water (25gm) 50 Ml Syringe IV 50 ml Q30MIN PRN Administration Hypoglycemia Protocol Docusate Sodium 100 mg 06/23/20 15:00 08/04/20 09:27 Docusate Sodium 100 Mg/10 Ml Oral Liqd FEEDTUBE 100 mg BID CONNOR Administration Fentanyl 50 mcg 06/18/20 01:02 07/27/20 16:59 Fentanyl 100 Mcg/2 Ml Inj IV 50 mcg Q10MIN PRN Administration ANALGESIA Heparin Sodium (Porcine) 5,000 unit 06/22/20 12:53 07/28/20 20:45 Heparin 10,000 Unit/1 Ml Vial IV 5,000 unit PAM PRN Administration hemodialysis Hydrophilic Ointment 1 applic 06/17/20 22:52 07/12/20 20:22 Lip Therapy Vaseline TP 1 applic Q2HR PRN Administration Dry Lips Propofol 1,000 mg in 100 mls @ 3.402 mls/hr 06/18/20 01:00 08/04/20 13:39 Diprivan 10 Mg/Ml IV 20 mcg/kg/min TITR CONNOR 13.608 mls/hr Administration Protocol 5 MCG/KG/MIN Fentanyl Citrate 2,000 mcg in 100 mls @ 8 mls/hr 06/18/20 02:00 08/04/20 13:40 Fentanyl Drip Premix IV 4 mcg/kg/hr TITR CONNOR 32 mls/hr Administration Protocol 1 MCG/KG/HR Norepinephrine 4 mg in 250 mls @ 7.5 mls/hr 07/08/20 02:06 08/04/20 12:40 Levophed Drip 4 Mg/Ns 250 Ml IV 4 mcg/min TITR CONNOR 15 mls/hr Titration Protocol 2 MCG/MIN Vasopressin 20 unit/ Sodium 101 mls @ 9.09 mls/hr 07/11/20 11:00 08/04/20 11:43 Chloride IV 0 units/min TITR CONNOR 0 mls/hr Titration Protocol 0.03 UNITS/MIN Amiodarone HCl 900 mg/ 500 mls @ 33.333 mls/hr 07/27/20 17:00 07/31/20 17:58 Dextrose IV 0.5 mg/min DIRECT CONNOR 16.667 mls/hr Administration Protocol 1 MG/MIN Sodium Chloride 100 mls @ 999 mls/hr 07/27/20 18:40 Nacl 0.9% IV PAM PRN Hypotension Meropenem 1,000 mg/ Sodium 100 mls @ 100 mls/hr 08/04/20 12:00 08/04/20 12:32 Chloride IV 100 mls/hr Q24HR CONNOR Administration Protocol Insulin Human Regular 0 units 06/18/20 12:00 08/04/20 12:15 Insulin Regular, Human 100 Units/1 Ml SUB-Q Not Given Q6HR [facility] Protocol Midodrine 10 mg 08/03/20 14:00 08/04/20 13:39 Midodrine 5 Mg Tab PO 10 mg TID CONNOR Administration Multi-Ingred Cream/Lotion/Oil/Oint 1 applic 06/17/20 22:52 07/12/20 20:22 Mineral Oil/Petrolatum, White Ophth Oint 3.5 Gm OU 1 applic Q4HR PRN Administration Dry Eye(s) Ondansetron HCl 4 mg 06/17/20 14:17 Ondansetron 4 Mg/2 Ml Inj IV Q8H PRN Nausea And Vomiting Pantoprazole Sodium 40 mg 07/16/20 22:00 08/04/20 09:27 Pantoprazole 40 Mg Inj IV 40 mg BID CONNOR Administration Polyethylene Glycol 17 gm 06/23/20 15:00 08/04/20 09:27 Polyethylene Glycol 3350 17 Gm Powder PO 17 gm QDAY CONNOR Administration Quetiapine Fumarate 200 mg 06/28/20 13:00 08/04/20 09:27 Quetiapine 200 Mg Tab PO 200 mg BID CONNOR Administration Scopolamine 1 each 07/29/20 14:00 08/04/20 09:27 Scopolamine Transdermal Patch 72 Hr TD 1 each Q3D CONNOR Administration Simple Syrup 15 ml 06/19/20 12:15 07/26/20 13:55 Simple Syrup 15 Ml FEEDTUBE 15 ml PRN PRN Administration Hypoglycemia Simple Syrup 30 ml 06/19/20 12:15 07/19/20 06:04 Simple Syrup 15 Ml FEEDTUBE 30 ml PRN PRN Administration Hypoglycemia Sodium Bicarbonate 325 mg 06/19/20 12:15 07/11/20 20:00 Sodium Bicarbonate 325 Mg Tab FEEDTUBE 325 mg PRN PRN Administration For Clogged Feeding Tube Sodium Chloride 10 ml 06/17/20 22:00 08/04/20 09:26 Sodium Chloride 0.9% 10 Ml Flush Syringe IV 10 ml BID CONNOR Administration Sodium Chloride 10 ml 06/17/20 14:17 07/30/20 09:46 Sodium Chloride 0.9% 10 Ml Flush Syringe IV 10 ml PRN PRN Administration LINE FLUSH Sodium Hypochlorite 1 applic 07/20/20 10:00 08/04/20 10:52 Sodium Hypochlorite, Dakin's 1/2 Strength (0.25%) 473 Ml Topical Soln TP 1 applicatio BID CONNOR Administration Zinc Sulfate 220 mg 06/17/20 22:00 08/04/20 09:27 Zinc Sulfate 220 Mg Cap PO 220 mg BID CONNOR Administration
[2020-08-05] MEDS: fentaNYL DRIP Premix 2,000 MCG/100 ML BAG IV SCH ×6 (00:25→19:55)
[2020-08-05] MEDS: INSULIN REGULAR, HUMAN 100 UNITS/1 ML SUB-Q SCH ×4 (00:43→17:58)
--- NOTE | 2020-08-05 06:19 | Progress Note ---
Assessment and Plan - Patient Problems (1) Acute renal failure Current Visit: Yes Status: Acute Qualifiers: Acute renal failure type: with acute tubular necrosis Qualified Code(s): N17.0 - Acute kidney failure with tubular necrosis Plan to address problem: Likely prerenal in nature secondary to new onset of COVID-19 pneumonia with worsening sepsis and hypotension. Concern for acute tubular necrosis. Has now been on HD with no significant findings of renal recovery at present time. He is also requiring extra isolated UF treatments to further optimize his volume status. No signs of renal recovery at this point. Concern for possible worsening sepsis and recommendations per ID for removal of vas catheter as well as right IJ. His femoral Vas-Cath has been removed and his right IJ has been converted to dialysis catheter over guidewire. new catheter is working without any acute issues. We will continue to monitor. Pending possible discharge to LTAC. (2) Pneumonia due to COVID-19 virus Current Visit: Yes Status: Acute Plan to address problem: Management per infectious disease recommendations. (3) Acute respiratory failure with hypoxia Current Visit: Yes Status: Acute Plan to address problem: Patient underwent tracheostomy. Further management per pulmonary. (4) Anemia Current Visit: Yes Status: Acute Qualifiers: Other causes of anemia: acute posthemorrhagic Plan to address problem: Transfuse to maintain Hgb >7.0. (5) Hyperkalemia Current Visit: Yes Status: Acute Plan to address problem: Manage with HD. Subjective Date of service: 08/05/20 Principal diagnosis: ARF; Septic Shock; COVID-19 PNA; Atrial fibrillation; Obesity Interval history: no acute changes. Pending discharge to LTAC. Remains on pressor treatment this morning. Plan for HD today. Objective - Vital Signs Vital signs: Vital Signs - 12hr 08/04/20 08/04/20 08/04/20 18:30 19:01 19:30 Temperature Pulse Rate 108 H 120 H 104 H Pulse Rate [ From Monitor] Respiratory 25 H 35 H 21 Rate Blood Pressure 111/62 105/65 104/49 O2 Sat by Pulse 96 95 96 Oximetry O2 Sat by Pulse Oximetry [ Assessment] 08/04/20 08/04/20 08/04/20 20:00 20:30 21:00 Temperature Pulse Rate 111 H 119 H 116 H Pulse Rate [ 118 H From Monitor] Respiratory 19 20 21 Rate Blood Pressure 107/54 104/47 104/50 O2 Sat by Pulse 96 96 96 Oximetry O2 Sat by Pulse Oximetry [ Assessment] 08/04/20 08/04/20 08/04/20 21:09 21:30 22:00 Temperature Pulse Rate 120 H 102 H 124 H Pulse Rate [ From Monitor] Respiratory 21 20 Rate Blood Pressure 104/50 106/54 99/53 O2 Sat by Pulse 96 96 96 Oximetry O2 Sat by Pulse Oximetry [ Assessment] 08/04/20 08/04/20 08/04/20 22:30 23:00 23:15 Temperature Pulse Rate 132 H 115 H 104 H Pulse Rate [ From Monitor] Respiratory 19 20 18 Rate Blood Pressure 99/54 101/50 107/54 O2 Sat by Pulse 97 97 96 Oximetry O2 Sat by Pulse Oximetry [ Assessment] 08/04/20 08/04/20 08/04/20 23:30 23:31 23:38 Temperature 97.9 F Pulse Rate 118 H 122 H Pulse Rate [ From Monitor] Respiratory 17 Rate Blood Pressure 101/56 108/51 O2 Sat by Pulse 97 98 Oximetry O2 Sat by Pulse Oximetry [ Assessment] 08/05/20 08/05/20 08/05/20 00:00 00:30 01:00 Temperature Pulse Rate 126 H 114 H 121 H Pulse Rate [ 126 H From Monitor] Respiratory 19 17 19 Rate Blood Pressure 107/56 100/53 93/60 O2 Sat by Pulse 97 97 97 Oximetry O2 Sat by Pulse Oximetry [ Assessment] 08/05/20 08/05/20 08/05/20 01:30 02:00 02:30 Temperature Pulse Rate 127 H 111 H 103 H Pulse Rate [ From Monitor] Respiratory 19 21 19 Rate Blood Pressure 107/62 121/52 104/51 O2 Sat by Pulse 96 96 97 Oximetry O2 Sat by Pulse 97 Oximetry [ Assessment] 08/05/20 08/05/20 08/05/20 03:00 03:17 03:30 Temperature 99.7 F H Pulse Rate 112 H 102 H Pulse Rate [ From Monitor] Respiratory 19 16 Rate Blood Pressure 106/54 108/56 O2 Sat by Pulse 97 96 Oximetry O2 Sat by Pulse Oximetry [ Assessment] 08/05/20 08/05/20 08/05/20 04:00 04:30 05:00 Temperature Pulse Rate 131 H 126 H 115 H Pulse Rate [ 131 H From Monitor] Respiratory 18 18 15 Rate Blood Pressure 113/57 101/58 107/54 O2 Sat by Pulse 97 96 97 Oximetry O2 Sat by Pulse Oximetry [ Assessment] 08/05/20 08/05/20 05:30 06:00 Temperature Pulse Rate 118 H 112 H Pulse Rate [ From Monitor] Respiratory 22 20 Rate Blood Pressure 115/59 106/49 O2 Sat by Pulse 97 96 Oximetry O2 Sat by Pulse Oximetry [ Assessment] - General Appearance General appearance: sedated on ventilator EENT: ATNC Neck: no JVD Respiratory: Present: Decreased Breath Sounds Cardiology: irregularly irregular Gastrointestinal: normal Integumentary: ulcer Musculoskeletal: other (2-3+ pitting edema, anasarca ) - Lab 08/04/20 04:00 08/03/20 04:00 Most recent lab results ABG pH 7.342 (7.320-7.450) 08/03/20 21:00 ABG pCO2 44.4 mm Hg 07/28/20 14:31 ABG pO2 68.0 mm Hg (80.0-90.0) L 07/28/20 14:31 ABG HCO3 23.1 mmol/L (20.0-26.0) 07/28/20 14:31 ABG O2 Saturation 93.5 (0-100) 08/03/20 21:00 Calcium 8.1 mg/dL (8.4-10.2) L 08/03/20 04:00 Phosphorus 9.40 mg/dL (2.5-4.5) H 06/30/20 03:50 Magnesium 2.70 mg/dL (1.7-2.3) H 06/18/20 20:33 Urine Creatinine 192.4 mg/dL (0.1-20.0) H 06/18/20 15:00 Urine Sodium 28 mmol/L 06/18/20 15:00 - Imaging Chest x-ray: pending - Allied health notes Allied health notes reviewed: nursing Medications & Allergies - Medications Allergies/Adverse Reactions: Allergies No Known Allergies Allergy (Unverified 06/17/20 14:24) Home Medications: Home Medications Medication Instructions Recorded Confirmed Last Taken Type ALBUTEROL NEB's [Proventil 0.083% 2.5 mg IH Q6HRT PRN nebu 08/02/20 Unknown Rx NEBS] Acetaminophen [Acetaminophen TAB] 650 mg PO Q4H PRN tablet 08/02/20 Unknown Rx Amiodarone [Cordarone 200 MG TAB] 200 mg PO BID tablet 08/02/20 Unknown Rx Ascorbic Acid [Vitamin C] 250 mg PO BID tablet 08/02/20 Unknown Rx Cholecalciferol Vit D3 [Vitamin D3 1,000 unit PO DAILY tablet 08/02/20 Unknown Rx 1,000 UNIT TAB] Dextrose 50% in Water [D50W (25GM) 50 ml IV Q30MIN PRN syringe 08/02/20 Unknown Rx Syringe] Docusate Sodium [Colace ORAL LIQ] 100 mg FEEDTUBE BID oral.liqd 08/02/20 Unknown Rx Epoetin Solitario-Epbx 10,000 Unit 10,000 unit IV PAM PRN vial 08/02/20 Unknown Rx [Retacrit] Heparin 5,000 unit IV PAM PRN vial 08/02/20 Unknown Rx Insulin Regular, Human [HumuLIN R] 0 units SUB-Q Q6HR units 08/02/20 Unknown Rx Lipase/Protease/Amylase [Pancreaze 1 each FEEDTUBE PRN PRN capsule 08/02/[address] 10,500 Unit] Min Oil/Petrolatum [Artificial 1 applic OU Q4HR PRN tube 08/02/20 Unknown Rx Tears Ophth Oint] Pantoprazole [Protonix INJ] 40 mg IV BID vial 08/02/20 Unknown Rx Petrolatum,White [Vaseline Lip 1 applic TP Q2HR PRN tube 08/02/20 Unknown Rx Therapy] QUEtiapine [SEROquel] 200 mg PO BID tablet 08/02/20 Unknown Rx Scopolamine [Transderm-Scop] 1 each TD Q3D patch 08/02/20 Unknown Rx Simple Syrup 15 ml FEEDTUBE PRN PRN oral.liqd 08/02/20 Unknown Rx Simple Syrup 30 ml FEEDTUBE PRN PRN oral.liqd 08/02/20 Unknown Rx Sodium Bicarbonate 325 mg FEEDTUBE PRN PRN tablet 08/02/20 Unknown Rx Sodium Chloride 0.9% Int [Sodium 10 ml IV BID syringe 08/02/20 Unknown Rx Chloride Flush Syringe 10 ml] Sodium Chloride 0.9% Int [Sodium 10 ml IV PRN PRN syringe 08/02/20 Unknown Rx Chloride Flush Syringe 10 ml] Sodium Hypochlorite [Dakin's Half 1 applic TP BID bottle 08/02/20 Unknown Rx Strength] Vasopressin [Vasostrict] 20 unit IV TITR vial 08/02/20 Unknown Rx Zinc Sulfate 220 mg PO BID capsule 08/02/20 Unknown Rx polyethylene glycoL 3350 [Miralax 17 gm PO QDAY powd.pack 08/02/20 Unknown Rx 3350] Active Medications: Generic Name Dose Route Start Last Admin Trade Name Freq PRN Reason Stop Dose Admin Acetaminophen 650 mg 06/17/20 14:17 08/02/20 06:00 Acetaminophen 325 Mg Tab PO 650 mg Q4H PRN Administration Pain MILD(1-3)/Fever >100.5/ROBERTS Albuterol 2.5 mg 07/19/20 12:15 Albuterol 2.5 Mg/3 Ml Nebu IH Q6HRT PRN Shortness Of Breath Alteplase, Recombinant 2 mg 07/27/20 18:40 Alteplase 2 Mg Inj IV PAM PRN LINE FLUSH Amiodarone HCl 200 mg 07/19/20 14:00 08/04/20 21:13 Amiodarone 200 Mg Tab PO 200 mg BID CONNOR Administration Lipase/Protease/Amylase 1 each 06/19/20 12:15 Lipase 10,500/Protease 25,000/Amylase 43,750 (Units) Dr Kulkarni FEEDTUBE PRN PRN For Clogged Feeding Tube Ascorbic Acid 250 mg 06/17/20 22:00 08/04/20 21:15 Ascorbic Acid 250 Mg Tab PO 250 mg BID CONNOR Administration Cholecalciferol 1,000 unit 06/18/20 10:00 08/04/20 09:27 Cholecalciferol (Vit D3) 1000 Unit (25 Mcg) Tab PO 1,000 unit DAILY CONNOR Administration Dextrose 50 ml 07/26/20 22:00 07/27/20 06:42 Dextrose 50% In Water (25gm) 50 Ml Syringe IV 50 ml Q30MIN PRN Administration Hypoglycemia Protocol Docusate Sodium 100 mg 06/23/20 15:00 08/04/20 21:12 Docusate Sodium 100 Mg/10 Ml Oral Liqd FEEDTUBE 100 mg BID CONNOR Administration Fentanyl 50 mcg 06/18/20 01:02 07/27/20 16:59 Fentanyl 100 Mcg/2 Ml Inj IV 50 mcg Q10MIN PRN Administration ANALGESIA Heparin Sodium (Porcine) 5,000 unit 06/22/20 12:53 07/28/20 20:45 Heparin 10,000 Unit/1 Ml Vial IV 5,000 unit PAM PRN Administration hemodialysis Hydrophilic Ointment 1 applic 06/17/20 22:52 07/12/20 20:22 Lip Therapy Vaseline TP 1 applic Q2HR PRN Administration Dry Lips Propofol 1,000 mg in 100 mls @ 3.402 mls/hr 06/18/20 01:00 08/05/20 01:10 Diprivan 10 Mg/Ml IV 20 mcg/kg/min TITR CONNOR 13.608 mls/hr Administration Protocol 5 MCG/KG/MIN Fentanyl Citrate 2,000 mcg in 100 mls @ 8 mls/hr 06/18/20 02:00 08/05/20 03:30 Fentanyl Drip Premix IV 4 mcg/kg/hr TITR CONNOR 32 mls/hr Administration Protocol 1 MCG/KG/HR Norepinephrine 4 mg in 250 mls @ 7.5 mls/hr 07/08/20 02:06 08/04/20 17:35 Levophed Drip 4 Mg/Ns 250 Ml IV 2 mcg/min TITR CONNOR 7.5 mls/hr Administration Protocol 2 MCG/MIN Vasopressin 20 unit/ Sodium 101 mls @ 9.09 mls/hr 07/11/20 11:00 08/04/20 11:43 Chloride IV 0 units/min TITR CONNOR 0 mls/hr Titration Protocol 0.03 UNITS/MIN Amiodarone HCl 900 mg/ 500 mls @ 33.333 mls/hr 07/27/20 17:00 07/31/20 17:58 Dextrose IV 0.5 mg/min DIRECT CONNOR 16.667 mls/hr Administration Protocol 1 MG/MIN Sodium Chloride 100 mls @ 999 mls/hr 07/27/20 18:40 Nacl 0.9% IV PAM PRN Hypotension Meropenem 1,000 mg/ Sodium 100 mls @ 100 mls/hr 08/04/20 12:00 08/04/20 12:32 Chloride IV 100 mls/hr Q24HR CONNOR Administration Protocol Insulin Human Regular 0 units 06/18/20 12:00 08/05/20 06:07 Insulin Regular, Human 100 Units/1 Ml SUB-Q Not Given Q6HR CONNOR Protocol Midodrine 10 mg 08/03/20 14:00 08/04/20 21:12 Midodrine 5 Mg Tab PO 10 mg TID CONNOR Administration Multi-Ingred Cream/Lotion/Oil/Oint 1 applic 06/17/20 22:52 07/12/20 20:22 Mineral Oil/Petrolatum, White Ophth Oint 3.5 Gm OU 1 applic Q4HR PRN Administration Dry Eye(s) Ondansetron HCl 4 mg 06/17/20 14:17 Ondansetron 4 Mg/2 Ml Inj IV Q8H PRN Nausea And Vomiting Pantoprazole Sodium 40 mg 07/16/20 22:00 08/04/20 21:14 Pantoprazole 40 Mg Inj IV 40 mg BID CONNOR Administration Polyethylene Glycol 17 gm 06/23/20 15:00 08/04/20 09:27 Polyethylene Glycol 3350 17 Gm Powder PO 17 gm QDAY CONNOR Administration Quetiapine Fumarate 200 mg 06/28/20 13:00 08/04/20 21:15 Quetiapine 200 Mg Tab PO 200 mg BID CONNOR Administration Scopolamine 1 each 07/29/20 14:00 08/04/20 09:27 Scopolamine Transdermal Patch 72 Hr TD 1 each Q3D CONNOR Administration Simple Syrup 15 ml 06/19/20 12:15 07/26/20 13:55 Simple Syrup 15 Ml FEEDTUBE 15 ml PRN PRN Administration Hypoglycemia Simple Syrup 30 ml 06/19/20 12:15 07/19/20 06:04 Simple Syrup 15 Ml FEEDTUBE 30 ml PRN PRN Administration Hypoglycemia Sodium Bicarbonate 325 mg 06/19/20 12:15 07/11/20 20:00 Sodium Bicarbonate 325 Mg Tab FEEDTUBE 325 mg PRN PRN Administration For Clogged Feeding Tube Sodium Chloride 10 ml 06/17/20 22:00 08/04/20 21:14 Sodium Chloride 0.9% 10 Ml Flush Syringe IV 10 ml BID CONNOR Administration Sodium Chloride 10 ml 06/17/20 14:17 07/30/20 09:46 Sodium Chloride 0.9% 10 Ml Flush Syringe IV 10 ml PRN PRN Administration LINE FLUSH Sodium Hypochlorite 1 applic 07/20/20 10:00 08/04/20 21:13 Sodium Hypochlorite, Dakin's 1/2 Strength (0.25%) 473 Ml Topical Soln TP 1 applicatio BID CONNOR Administration Zinc Sulfate 220 mg 06/17/20 22:00 08/04/20 21:15 Zinc Sulfate 220 Mg Cap PO 220 mg BID CONNOR Administration
[2020-08-05 08:14] LABS: Hemoglobin 8.5 gm/dl (11.8-15.2); Red Blood Count 2.85 M/mm3 (3.65-5.03)
[2020-08-05 08:15] LABS: Hematocrit 25.7 % (35.5-45.6); Mean Corpuscular HGB Conc 33 % (32-34); Mean Corpuscular Volume 90 fl (84-94); Platelet Count 276 K/mm3 (140-440)
[2020-08-05] MEDS: NORepinephrine/NS 4 MG-250 ML 4 MG/250 ML BAG IV SCH (08:46)
[2020-08-05] MEDS: MIDODRINE 5 MG TAB PO SCH ×3 (08:56→21:49)
--- NOTE | 2020-08-05 09:13 | Progress Note ---
Assessment and Plan Pt remains ventilated and sedated, s/p trach and PEG. Telemetry reviewed: Aflutter 110-120s. Requiring vasopressors, wean as tolerated. Continue to hold AC in setting of severe anemia. Electrolyte management per nephrology. Pt for discharge to LTAC once medically stabilized. Cont supportive management. Overall poor prognosis. Will follow on as needed basis over the weekend. The patient has been seen in conjunction with Dr. Chavis who agrees with the assessment and plan of care. - Patient Problems (1) Acute respiratory failure with hypoxia Current Visit: Yes Status: Acute (2) Sepsis Current Visit: Yes Status: Acute Qualifiers: Severe sepsis acute organ dysfunction type: acute respiratory failure Severe sepsis shock status: with septic shock (3) Atrial fibrillation with rapid ventricular response Current Visit: Yes Status: Acute (4) Acute renal failure Current Visit: Yes Status: Acute (5) Pneumonia due to COVID-19 virus Current Visit: Yes Status: Acute (6) Elevated LFTs Current Visit: Yes Status: Acute (7) Hyperkalemia Current Visit: Yes Status: Acute (8) Anemia Current Visit: Yes Status: Acute Subjective Date of service: 08/05/20 Principal diagnosis: ARF; Septic Shock; COVID-19 PNA; Atrial fibrillation; Obesity Interval history: Pt remains ventilated and sedated, s/p trach and PEG Telemetry reviewed: Aflutter 110-120s. No events overnight Objective Last Vital Signs Temp 98.6 F 08/05/20 07:45 Pulse 112 H 08/05/20 08:00 Resp 20 08/05/20 06:00 BP 106/49 08/05/20 08:00 Pulse Ox 96 08/05/20 08:00 - Physical Examination General: Other (trached, sedated) Neck: Positive: neck supple Cardiac: Positive: irregularly irregular, S1/S2 Lungs: Positive: Ventilated Respirations Neuro: Positive: Other (trached, sedated) Abdomen: Positive: Unremarkable Skin: Negative: Rash, Wound Extremities: Present: upper extr. pulses, lower extr. pulses, +1 Edema - Labs and Meds CBC 08/05/20 Range/Units Unknown WBC 22.3 H (4.5-11.0) K/mm3 RBC 2.85 L (3.65-5.03) M/mm3 Hgb 8.5 L (11.8-15.2) gm/dl Hct 25.7 L (35.5-45.6) % Plt Count 276 (140-440) K/mm3 - Imaging and Cardiology EKG: report reviewed, image reviewed Echo: report reviewed (TDS, EF 55-60%. ) - Telemetry EKG Rhythm: Atrial Flutter - EKG Sinus rhythms and dysrhythmias: sinus tachycardia - Allied health notes Allied health notes reviewed: nursing
[2020-08-05] MEDS: AMIODARONE 200 MG TAB PO SCH ×2 (09:48→21:49)
--- NOTE | 2020-08-05 11:22 | Progress Note ---
Assessment and Plan Acute hypoxemic respiratory failure due to COVID-19 Severe COVID infection Severe Sepsis with shock Bilateral pneumonia Acute kidney injury (GIRISH) with acute tubular necrosis (ATN) on HD Elevated liver enzymes Obesity Saxral decubitus ulcer Wean vasopressor support for MAP>65 Supportive HD On Meropenem for MDRO Pseudomonas, ID following No chemical VTE prophylaxis secondary recurrent episodes of rectal bleeding , has required supportive transfusions. SCDs for now Hold off on LTACH transfer as he is requiring increasing doses of Norepinephrine at this time Mobility, off loading and frequent turning per facility protocol to prevent further deterioration of sacral decubitus. Wound care CXR, ABG in the morning -VAP bundle addressed, aspiration precautions HOB >40 - continue lung protective strategies - continue bronchodilators with pulmonary hygiene per RT - titrate supplemental oxygen to keep O2 sats>90% - continue tube feeds as tolerated - continue HD/UF per nephrology team for toxin and volume clearance - accuchecks with glycemic control per SSI (While critically ill target blood glucose of 140-180 mg/dL; avoid hypoglycemia) - sedation for target RASS -1 to -2 - continue enteral nutritional support at goal rate as tolerated - Avoid nephrotoxins, renally dose all medications, conservative fluid managemen t - continue to avoid benzodiazepines, reduce the possibility of delirium, - prn analgesia per CPOT score - Maintenance of sleep-wake cycle, avoid delirium - Stress ulcer prophylaxis, Famotidine - PT/OT/ROM exercises - Mobility protocols for pressure ulcer prevention - Supportive transfusions to keep HgB >7g/dL - Monitor hemodynamics closely - continue other care per attending / other consultants COVID SPECIFIC INTERVENTIONS - s/p Dexamethasone - s/p Remdesivir -s/p Critical care proning CONDITION: CRITICAL PROGNOSIS: GUARDED CODE STATUS: FULL CODE The high probability of a clinically significant, sudden or life-threatening deterioration of the [respiratory, cardiovascular, hematologic & neurologic] system(s) required my full and direct attention, intervention and personal management. The aggregate critical care time was [35] minutes without overlap. Time includes spent on; [x] Data Review and interpretation [x] Patient assessment and monitoring of vital signs [x] Documentation [x] Medication orders and management Subjective Date of service: 08/05/20 Principal diagnosis: ARF; Septic Shock; COVID-19 PNA; Atrial fibrillation; Obesity Interval history: Follow up for severe sepsis with septic shock; COVID-ARDS; acute hypoxemic resp failure on MVS: GIRISH/ATN Seen and examined. Vitals, labs, medications, chart reviewed. Discussed with nursing and respiratory staff. 07/31: Patient currently with AC mode ventilation rate 30, tidal volume 450 FiO2 100%, pressure support 16 and PEEP of 8. Wean mechanical ventilation as jung ated, VAP bundle. Continue hemodialysis per nephrology recommendations. Continue antibiotics per ID recommendations. Patient currently on ampicillin. Hold systemic anticoagulation in the setting of severe anemia. Continue restraints for safety. Continue pressors to maintain MAP > 65. Awaiting family decision to discharge to LTAC. 08/01: If patient develops worsening sepsis ID would like to initiate vancomycin and cefepime, and [facility] would like to add vasopressin. The time my examination patient is on assist control 450/30/8/.60 with an ABG of 7.3/42/111/21 with a base excess of -4. Patient remains sedated on propofol and fentanyl with vasopressor support with Levophed. No acute events reported overnight. Per vascular surgery if patient's blood cultures are positive will consider a Vas- Cath exchange on a clean wire with ChloraPrep during the exchange and attempt to decrease bioburden. No acute events reported overnight. Patient's H/H today was 6.8/20.5 and he will receive 1 unit PRBC and we will recheck CBC in the a.m. and transfuse as needed. 08/02: Right IJ dialysis catheter changed over wire, per [facility] ok to transfer to LTAC after next HD session and ID started cefepime. The time my examination patient remains on vasopressin and Levophed. Remains on assist control 450/3 0/H/0.60 with a T-max of 100.7 overnight. His sputum is growing GNR. 08/03: Tracheal aspirate from 08/03 shows heavy growth of gram-negative rods and patient is on cefepime. His IJ IVC was changed over wire to IJ dialysis yesterday. Patient remains on assist control 450/30/8/0.40 and sedated on pro pofol and fentanyl and the vasopressor support with Levophed. Patient received hemodialysis today. Patient remains in atrial flutter however his heart rate 110s and cardiology is aware. 08/04: At the time my examination patient was on vasopressin at 0.03 units and sedated with fentanyl and propofol. Current vent settings 450/25/8/0.40 and his rate was decreased per CCM. RT to obtain ABG tonight. [facility] has restarted the patient on heparin subcu and we will monitor for bleeding. Patient is awaiting LTAC transfer. Infectious disease has started the patient on meropenem renally adjusted due to MDR Pseudomonas. Patient is status post debridement with surgery yesterday 08/05/2020 Remains critically ill on MVS, currently on Norepinephrine at 2mcg, but on HD with labile BP with episodes of on going hypotension on HD via a RIJ trialysis s/p trach to full MVS,PEEP +8, FIO2 40% Objective Vital Signs - 12hr 08/04/20 08/04/20 08/04/20 23:30 23:31 23:38 Temperature 97.9 F Pulse Rate 118 H 122 H Pulse Rate [ From Monitor] Respiratory 17 Rate Blood Pressure 101/56 108/51 O2 Sat by Pulse 97 98 Oximetry O2 Sat by Pulse Oximetry [ Anterior Bilateral Throughout] O2 Sat by Pulse Oximetry [ Assessment] 08/05/20 08/05/20 08/05/20 00:00 00:30 01:00 Temperature Pulse Rate 107 H 114 H 121 H Pulse Rate [ 126 H From Monitor] Respiratory 19 17 19 Rate Blood Pressure 107/56 100/53 93/60 O2 Sat by Pulse 97 97 97 Oximetry O2 Sat by Pulse Oximetry [ Anterior Bilateral Throughout] O2 Sat by Pulse Oximetry [ Assessment] 08/05/20 08/05/20 08/05/20 01:30 02:00 02:30 Temperature Pulse Rate 127 H 111 H 103 H Pulse Rate [ From Monitor] Respiratory 19 21 19 Rate Blood Pressure 107/62 121/52 104/51 O2 Sat by Pulse 96 96 97 Oximetry O2 Sat by Pulse Oximetry [ Anterior Bilateral Throughout] O2 Sat by Pulse 97 Oximetry [ Assessment] 08/05/20 08/05/20 08/05/20 03:00 03:17 03:30 Temperature 99.7 F H Pulse Rate 112 H 102 H Pulse Rate [ From Monitor] Respiratory 19 16 Rate Blood Pressure 106/54 108/56 O2 Sat by Pulse 97 96 Oximetry O2 Sat by Pulse Oximetry [ Anterior Bilateral Throughout] O2 Sat by Pulse Oximetry [ Assessment] 08/05/20 08/05/20 08/05/20 04:00 04:30 04:33 Temperature Pulse Rate 115 H 126 H 118 H Pulse Rate [ 131 H From Monitor] Respiratory 18 18 Rate Blood Pressure 113/57 101/58 110/59 O2 Sat by Pulse 97 96 97 Oximetry O2 Sat by Pulse Oximetry [ Anterior Bilateral Throughout] O2 Sat by Pulse Oximetry [ Assessment] 08/05/20 08/05/20 08/05/20 05:00 05:30 06:00 Temperature Pulse Rate 115 H 118 H 112 H Pulse Rate [ From Monitor] Respiratory 15 22 20 Rate Blood Pressure 107/54 115/59 106/49 O2 Sat by Pulse 97 97 96 Oximetry O2 Sat by Pulse Oximetry [ Anterior Bilateral Throughout] O2 Sat by Pulse Oximetry [ Assessment] 08/05/20 08/05/20 08/05/20 06:30 07:00 07:30 Temperature Pulse Rate 109 H 109 H 102 H Pulse Rate [ From Monitor] Respiratory 32 H 25 H 25 H Rate Blood Pressure 123/78 105/62 107/58 O2 Sat by Pulse 97 95 97 Oximetry O2 Sat by Pulse Oximetry [ Anterior Bilateral Throughout] O2 Sat by Pulse Oximetry [ Assessment] 08/05/20 08/05/20 08/05/20 07:45 08:00 08:15 Temperature 98.6 F 98.8 F Pulse Rate 113 H 114 H Pulse Rate [ From Monitor] Respiratory 27 H 30 H Rate Blood Pressure 110/56 105/66 O2 Sat by Pulse 97 Oximetry O2 Sat by Pulse 94 Oximetry [ Anterior Bilateral Throughout] O2 Sat by Pulse Oximetry [ Assessment] 08/05/20 08/05/20 08/05/20 08:30 08:45 09:00 Temperature Pulse Rate 122 H 111 H 139 H Pulse Rate [ From Monitor] Respiratory 25 H 36 H Rate Blood Pressure 106/66 110/53 110/33 O2 Sat by Pulse 97 92 Oximetry O2 Sat by Pulse Oximetry [ Anterior Bilateral Throughout] O2 Sat by Pulse Oximetry [ Assessment] 08/05/20 08/05/20 08/05/20 09:15 09:30 09:45 Temperature Pulse Rate 112 H 117 H 118 H Pulse Rate [ From Monitor] Respiratory 24 Rate Blood Pressure 132/65 102/60 94/51 O2 Sat by Pulse 97 Oximetry O2 Sat by Pulse Oximetry [ Anterior Bilateral Throughout] O2 Sat by Pulse Oximetry [ Assessment] 08/05/20 08/05/20 08/05/20 10:00 10:15 10:30 Temperature Pulse Rate 101 H 119 H 120 H Pulse Rate [ From Monitor] Respiratory Rate Blood Pressure 96/50 95/50 94/51 O2 Sat by Pulse Oximetry O2 Sat by Pulse Oximetry [ Anterior Bilateral Throughout] O2 Sat by Pulse Oximetry [ Assessment] 08/05/20 08/05/20 10:45 11:00 Temperature Pulse Rate 110 H 110 H Pulse Rate [ From Monitor] Respiratory Rate Blood Pressure 95/44 93/51 O2 Sat by Pulse Oximetry O2 Sat by Pulse Oximetry [ Anterior Bilateral Throughout] O2 Sat by Pulse Oximetry [ Assessment] Constitutional: other (obese, atraumatic, normocephalic, mild resp distress, trach to vent) Eyes: non-icteric ENT: oropharynx moist, other (s/p tracheostomy) Neck: supple, no lymphadenopathy, other (Large , short neck) Effort: mildly labored Ascultation: Bilateral: diminished breath sounds, rhonchi Cardiovascular: irregular rhythm, other (S1,S2) Gastrointestinal: normoactive bowel sounds, soft, non-tender, non-distended (protuberant) Integumentary: rash, other (Femoral CVC, Newell catheter) Extremities: pink and warm, pulses normal, no ischemia or petechiae, edema (trace to 1+) Neurologic: pupils equal and round, other (unable to assess, sedated) Psychiatric: other (unable to assess, sedated) CBC and BMP: 08/05/20 Unknown 08/03/20 04:00 ABG, PT/INR, D-dimer: ABG ABG pH 7.342 (7.320-7.450) 08/03/20 21:00 POC ABG pCO2 48.3 mmHg (32.0-48.0) H 08/03/20 21:00 ABG pCO2 44.4 mm Hg 07/28/20 14:31 POC ABG pO2 67.6 mmHg (83-108) L 08/03/20 21:00 ABG pO2 68.0 mm Hg (80.0-90.0) L 07/28/20 14:31 POC ABG HCO3 25.6 08/03/20 21:00 ABG O2 Saturation 93.5 (0-100) 08/03/20 21:00 PT/INR, D-dimer PT 15.3 Sec. (12.2-14.9) H 07/24/20 20:40 INR 1.21 (0.87-1.13) H 07/24/20 20:40 D-Dimer 6608.00 ng/mlDDU (0-234) H 07/03/20 14:50 Abnormal lab findings: Abnormal Labs 06/17/20 06/17/20 06/17/20 12:33 12:33 12:33 WBC 19.5 H RBC 5.18 H Hgb 15.5 H Hct MCHC RDW Plt Count Lymph % (Auto) 3.8 L [place] % (Auto) Lymph # (Auto) 0.7 L [place] # (Auto) Eos # (Auto) Baso # (Auto) Seg Neutrophils % Seg Neuts % (Manual) 99.0 H Lymphocytes % (Manual) 1.0 L Monocytes % (Manual) Basophils % (Manual) Nucleated RBC % Seg Neutrophils # 18.2 H Seg Neutrophils # Man 19.3 H Lymphocytes # (Manual) 0.2 L Monocytes # (Manual) Eosinophils # (Manual) Basophils # (Manual) PT 16.5 H INR 1.33 H APTT D-Dimer 1025.04 H Heparin Anti-Xa Level ABG pH POC ABG pCO2 POC ABG pO2 ABG pO2 ABG HCO3 ABG O2 Saturation ABG Base Excess ABG Hemoglobin ABG Oxyhemoglobin ABG Sodium ABG Potassium ABG Chloride ABG Glucose Oxyhemoglobin Carboxyhemoglobin Sodium 130 L Potassium 3.4 L Chloride 95.0 L Carbon Dioxide BUN 21 H Creatinine Glucose 137 H POC Glucose Lactic Acid Calcium 7.9 L Phosphorus Magnesium Ferritin Direct Bilirubin AST 84 H ALT 67 H Alkaline Phosphatase Lactate Dehydrogenase 437 H Total Creatine Kinase 310 H C-Reactive Protein 27.90 H Total Protein Albumin 2.9 L Triglycerides Arterial Blood Glucose Arterial Blood Ionized Calcium Urine Creatinine Urine Chloride Vancomycin Trough Coronavirus (PCR) Crossmatch 06/17/20 06/17/20 06/17/20 12:33 12:33 14:48 WBC RBC Hgb Hct MCHC RDW Plt Count Lymph % (Auto) [place] % (Auto) Lymph # (Auto) [place] # (Auto) Eos # (Auto) Baso # (Auto) Seg Neutrophils % Seg Neuts % (Manual) Lymphocytes % (Manual) Monocytes % (Manual) Basophils % (Manual) Nucleated RBC % Seg Neutrophils # Seg Neutrophils # Man Lymphocytes # (Manual) Monocytes # (Manual) Eosinophils # (Manual) Basophils # (Manual) PT INR APTT D-Dimer Heparin Anti-Xa Level ABG pH POC ABG pCO2 POC ABG pO2 ABG pO2 ABG HCO3 ABG O2 Saturation ABG Base Excess ABG Hemoglobin ABG Oxyhemoglobin ABG Sodium ABG Potassium ABG Chloride ABG Glucose Oxyhemoglobin Carboxyhemoglobin Sodium Potassium Chloride Carbon Dioxide BUN Creatinine Glucose POC Glucose Lactic Acid 2.50 H* 2.20 H* Calcium Phosphorus Magnesium Ferritin 2297.0 H Direct Bilirubin AST ALT Alkaline Phosphatase Lactate Dehydrogenase Total Creatine Kinase C-Reactive Protein Total Protein Albumin Triglycerides Arterial Blood Glucose Arterial Blood Ionized Calcium Urine Creatinine Urine Chloride Vancomycin Trough Coronavirus (PCR) Crossmatch 06/17/20 06/17/20 06/17/20 14:48 14:48 14:48 WBC RBC Hgb Hct MCHC RDW Plt Count Lymph % (Auto) [place] % (Auto) Lymph # (Auto) [place] # (Auto) Eos # (Auto) Baso # (Auto) Seg Neutrophils % Seg Neuts % (Manual) Lymphocytes % (Manual) Monocytes % (Manual) Basophils % (Manual) Nucleated RBC % Seg Neutrophils # Seg Neutrophils # Man Lymphocytes # (Manual) Monocytes # (Manual) Eosinophils # (Manual) Basophils # (Manual) PT INR APTT D-Dimer 939.89 H Heparin Anti-Xa Level ABG pH POC ABG pCO2 POC ABG pO2 ABG pO2 ABG HCO3 ABG O2 Saturation ABG Base Excess ABG Hemoglobin ABG Oxyhemoglobin ABG Sodium ABG Potassium ABG Chloride ABG Glucose Oxyhemoglobin Carboxyhemoglobin Sodium Potassium Chloride Carbon Dioxide BUN Creatinine Glucose 141 H POC Glucose Lactic Acid Calcium Phosphorus Magnesium Ferritin > 2000.0 H Direct Bilirubin AST ALT Alkaline Phosphatase Lactate Dehydrogenase 503 H Total Creatine Kinase C-Reactive Protein 24.70 H Total Protein Albumin Triglycerides Arterial Blood Glucose Arterial Blood Ionized Calcium Urine Creatinine Urine Chloride Vancomycin Trough Coronavirus (PCR) Crossmatch 06/17/20 06/17/20 06/17/20 16:54 19:39 23:43 WBC RBC Hgb Hct MCHC RDW Plt Count Lymph % (Auto) [place] % (Auto) Lymph # (Auto) [place] # (Auto) Eos # (Auto) Baso # (Auto) Seg Neutrophils % Seg Neuts % (Manual) Lymphocytes % (Manual) Monocytes % (Manual) Basophils % (Manual) Nucleated RBC % Seg Neutrophils # Seg Neutrophils # Man Lymphocytes # (Manual) Monocytes # (Manual) Eosinophils # (Manual) Basophils # (Manual) PT INR APTT D-Dimer Heparin Anti-Xa Level ABG pH 7.571 H POC ABG pCO2 24.3 L POC ABG pO2 41.6 L ABG pO2 ABG HCO3 ABG O2 Saturation ABG Base Excess ABG Hemoglobin ABG Oxyhemoglobin 84.0 L ABG Sodium 131.0 L ABG Potassium ABG Chloride ABG Glucose 163 H Oxyhemoglobin Carboxyhemoglobin Sodium Potassium Chloride Carbon Dioxide BUN Creatinine Glucose POC Glucose 185 H Lactic Acid 2.10 H* Calcium Phosphorus Magnesium Ferritin Direct Bilirubin AST ALT Alkaline Phosphatase Lactate Dehydrogenase Total Creatine Kinase C-Reactive Protein Total Protein Albumin Triglycerides Arterial Blood Glucose 163 H Arterial Blood Ionized Calcium 4.4 L Urine Creatinine Urine Chloride Vancomycin Trough Coronavirus (PCR) Crossmatch 06/18/20 06/18/20 06/18/20 00:17 00:23 03:55 WBC RBC Hgb Hct MCHC RDW Plt Count Lymph % (Auto) [place] % (Auto) Lymph # (Auto) [place] # (Auto) Eos # (Auto) Baso # (Auto) Seg Neutrophils % Seg Neuts % (Manual) Lymphocytes % (Manual) Monocytes % (Manual) Basophils % (Manual) Nucleated RBC % Seg Neutrophils # Seg Neutrophils # Man Lymphocytes # (Manual) Monocytes # (Manual) Eosinophils # (Manual) Basophils # (Manual) PT INR APTT D-Dimer Heparin Anti-Xa Level ABG pH POC ABG pCO2 POC ABG pO2 56.5 L 48.3 L ABG pO2 ABG HCO3 ABG O2 Saturation ABG Base Excess ABG Hemoglobin ABG Oxyhemoglobin 86.3 L 81.7 L ABG Sodium 132.9 L 131.0 L ABG Potassium ABG Chloride ABG Glucose 189 H 161 H Oxyhemoglobin Carboxyhemoglobin 0.4 L Sodium Potassium Chloride Carbon Dioxide BUN Creatinine Glucose POC Glucose Lactic Acid 3.80 H* Calcium Phosphorus Magnesium Ferritin Direct Bilirubin AST ALT Alkaline Phosphatase Lactate Dehydrogenase Total Creatine Kinase C-Reactive Protein Total Protein Albumin Triglycerides Arterial Blood Glucose 189 H 161 H Arterial Blood Ionized Calcium 4.3 L 4.2 L Urine Creatinine Urine Chloride Vancomycin Trough Coronavirus (PCR) Crossmatch 06/18/20 06/18/20 06/18/20 05:39 05:39 05:39 WBC 26.2 H RBC Hgb Hct MCHC RDW Plt Count Lymph % (Auto) [place] % (Auto) Lymph # (Auto) [place] # (Auto) Eos # (Auto) Baso # (Auto) Seg Neutrophils % Seg Neuts % (Manual) 90.0 H Lymphocytes % (Manual) 5.0 L Monocytes % (Manual) Basophils % (Manual) Nucleated RBC % Seg Neutrophils # Seg Neutrophils # Man 23.6 H Lymphocytes # (Manual) Monocytes # (Manual) 1.3 H Eosinophils # (Manual) Basophils # (Manual) PT INR APTT D-Dimer Heparin Anti-Xa Level ABG pH POC ABG pCO2 POC ABG pO2 ABG pO2 ABG HCO3 ABG O2 Saturation ABG Base Excess ABG Hemoglobin ABG Oxyhemoglobin ABG Sodium ABG Potassium ABG Chloride ABG Glucose Oxyhemoglobin Carboxyhemoglobin Sodium 135 L Potassium Chloride 97.5 L Carbon Dioxide 21 L BUN 39 H Creatinine 1.7 H D Glucose 168 H POC Glucose Lactic Acid 3.40 H* Calcium 7.2 L Phosphorus Magnesium Ferritin Direct Bilirubin AST ALT Alkaline Phosphatase Lactate Dehydrogenase Total Creatine Kinase C-Reactive Protein Total Protein Albumin Triglycerides Arterial Blood Glucose Arterial Blood Ionized Calcium Urine Creatinine Urine Chloride Vancomycin Trough Coronavirus (PCR) Crossmatch 06/18/20 06/18/20 06/18/20 07:24 09:00 10:10 WBC RBC Hgb Hct MCHC RDW Plt Count Lymph % (Auto) [place] % (Auto) Lymph # (Auto) [place] # (Auto) Eos # (Auto) Baso # (Auto) Seg Neutrophils % Seg Neuts % (Manual) Lymphocytes % (Manual) Monocytes % (Manual) Basophils % (Manual) Nucleated RBC % Seg Neutrophils # Seg Neutrophils # Man Lymphocytes # (Manual) Monocytes # (Manual) Eosinophils # (Manual) Basophils # (Manual) PT INR APTT D-Dimer Heparin Anti-Xa Level ABG pH POC ABG pCO2 POC ABG pO2 ABG pO2 ABG HCO3 ABG O2 Saturation ABG Base Excess ABG Hemoglobin ABG Oxyhemoglobin ABG Sodium ABG Potassium ABG Chloride ABG Glucose Oxyhemoglobin Carboxyhemoglobin Sodium Potassium Chloride Carbon Dioxide BUN Creatinine Glucose POC Glucose Lactic Acid 2.90 H* 3.20 H* Calcium Phosphorus Magnesium Ferritin Direct Bilirubin AST ALT Alkaline Phosphatase Lactate Dehydrogenase Total Creatine Kinase C-Reactive Protein Total Protein Albumin Triglycerides Arterial Blood Glucose Arterial Blood Ionized Calcium Urine Creatinine Urine Chloride Vancomycin Trough Coronavirus (PCR) Positive A Crossmatch 06/18/20 06/18/20 06/18/20 11:58 14:43 15:00 WBC RBC Hgb Hct MCHC RDW Plt Count Lymph % (Auto) [place] % (Auto) Lymph # (Auto) [place] # (Auto) Eos # (Auto) Baso # (Auto) Seg Neutrophils % Seg Neuts % (Manual) Lymphocytes % (Manual) Monocytes % (Manual) Basophils % (Manual) Nucleated RBC % Seg Neutrophils # Seg Neutrophils # Man Lymphocytes # (Manual) Monocytes # (Manual) Eosinophils # (Manual) Basophils # (Manual) PT INR APTT D-Dimer Heparin Anti-Xa Level ABG pH 7.303 L POC ABG pCO2 POC ABG pO2 82.3 L ABG pO2 ABG HCO3 ABG O2 Saturation ABG Base Excess ABG Hemoglobin ABG Oxyhemoglobin ABG Sodium 135.3 L ABG Potassium ABG Chloride ABG Glucose 215 H Oxyhemoglobin Carboxyhemoglobin 0.3 L Sodium Potassium Chloride Carbon Dioxide BUN Creatinine Glucose POC Glucose 209 H Lactic Acid Calcium Phosphorus Magnesium Ferritin Direct Bilirubin AST ALT Alkaline Phosphatase Lactate Dehydrogenase Total Creatine Kinase C-Reactive Protein Total Protein Albumin Triglycerides Arterial Blood Glucose 215 H Arterial Blood Ionized Calcium 4.2 L Urine Creatinine 192.4 H Urine Chloride 31.1 L Vancomycin Trough Coronavirus (PCR) Crossmatch 06/18/20 06/18/20 06/18/20 17:16 19:44 20:33 WBC RBC Hgb Hct MCHC RDW Plt Count Lymph % (Auto) [place] % (Auto) Lymph # (Auto) [place] # (Auto) Eos # (Auto) Baso # (Auto) Seg Neutrophils % Seg Neuts % (Manual) Lymphocytes % (Manual) Monocytes % (Manual) Basophils % (Manual) Nucleated RBC % Seg Neutrophils # Seg Neutrophils # Man Lymphocytes # (Manual) Monocytes # (Manual) Eosinophils # (Manual) Basophils # (Manual) PT INR APTT D-Dimer Heparin Anti-Xa Level ABG pH POC ABG pCO2 POC ABG pO2 ABG pO2 ABG HCO3 ABG O2 Saturation ABG Base Excess ABG Hemoglobin ABG Oxyhemoglobin ABG Sodium ABG Potassium ABG Chloride ABG Glucose Oxyhemoglobin Carboxyhemoglobin Sodium Potassium Chloride Carbon Dioxide BUN Creatinine Glucose POC Glucose 182 H Lactic Acid 3.00 H* Calcium Phosphorus Magnesium 2.70 H Ferritin Direct Bilirubin AST ALT Alkaline Phosphatase Lactate Dehydrogenase Total Creatine Kinase C-Reactive Protein Total Protein Albumin Triglycerides Arterial Blood Glucose Arterial Blood Ionized Calcium Urine Creatinine Urine Chloride Vancomycin Trough Coronavirus (PCR) Crossmatch 06/18/20 06/19/20 06/19/20 23:43 04:00 04:00 WBC 31.6 H RBC Hgb Hct MCHC RDW Plt Count Lymph % (Auto) [place] % (Auto) Lymph # (Auto) [place] # (Auto) Eos # (Auto) Baso # (Auto) Seg Neutrophils % Seg Neuts % (Manual) 98.0 H Lymphocytes % (Manual) 0.5 L Monocytes % (Manual) Basophils % (Manual) Nucleated RBC % Seg Neutrophils # Seg Neutrophils # Man 31.0 H Lymphocytes # (Manual) 0.2 L Monocytes # (Manual) Eosinophils # (Manual) Basophils # (Manual) PT INR APTT D-Dimer Heparin Anti-Xa Level ABG pH POC ABG pCO2 POC ABG pO2 ABG pO2 ABG HCO3 ABG O2 Saturation ABG Base Excess ABG Hemoglobin ABG Oxyhemoglobin ABG Sodium ABG Potassium ABG Chloride ABG Glucose Oxyhemoglobin Carboxyhemoglobin Sodium Potassium Chloride Carbon Dioxide BUN 56 H Creatinine 1.6 H Glucose 176 H POC Glucose 149 H Lactic Acid Calcium 7.0 L Phosphorus Magnesium Ferritin Direct Bilirubin AST 244 H ALT 159 H Alkaline Phosphatase Lactate Dehydrogenase Total Creatine Kinase C-Reactive Protein Total Protein 4.9 L D Albumin 2.5 L Triglycerides Arterial Blood Glucose Arterial Blood Ionized Calcium Urine Creatinine Urine Chloride Vancomycin Trough Coronavirus (PCR) Crossmatch 06/19/20 06/19/20 06/19/20 04:00 05:44 11:42 WBC RBC Hgb Hct MCHC RDW Plt Count Lymph % (Auto) [place] % (Auto) Lymph # (Auto) [place] # (Auto) Eos # (Auto) Baso # (Auto) Seg Neutrophils % Seg Neuts % (Manual) Lymphocytes % (Manual) Monocytes % (Manual) Basophils % (Manual) Nucleated RBC % Seg Neutrophils # Seg Neutrophils # Man Lymphocytes # (Manual) Monocytes # (Manual) Eosinophils # (Manual) Basophils # (Manual) PT INR APTT D-Dimer Heparin Anti-Xa Level ABG pH 7.265 L POC ABG pCO2 51.8 H POC ABG pO2 65.1 L ABG pO2 ABG HCO3 ABG O2 Saturation ABG Base Excess ABG Hemoglobin ABG Oxyhemoglobin ABG Sodium ABG Potassium ABG Chloride ABG Glucose 184 H Oxyhemoglobin Carboxyhemoglobin Sodium Potassium Chloride Carbon Dioxide BUN Creatinine Glucose POC Glucose 156 H 191 H Lactic Acid Calcium Phosphorus Magnesium Ferritin Direct Bilirubin AST ALT Alkaline Phosphatase Lactate Dehydrogenase Total Creatine Kinase C-Reactive Protein Total Protein Albumin Triglycerides Arterial Blood Glucose 184 H Arterial Blood Ionized Calcium 4.3 L Urine Creatinine Urine Chloride Vancomycin Trough Coronavirus (PCR) Crossmatch 06/19/20 06/19/20 06/19/20 12:30 17:16 18:36 WBC RBC Hgb Hct MCHC RDW Plt Count Lymph % (Auto) [place] % (Auto) Lymph # (Auto) [place] # (Auto) Eos # (Auto) Baso # (Auto) Seg Neutrophils % Seg Neuts % (Manual) Lymphocytes % (Manual) Monocytes % (Manual) Basophils % (Manual) Nucleated RBC % Seg Neutrophils # Seg Neutrophils # Man Lymphocytes # (Manual) Monocytes # (Manual) Eosinophils # (Manual) Basophils # (Manual) PT 16.4 H INR 1.32 H APTT D-Dimer Heparin Anti-Xa Level ABG pH 7.088 L POC ABG pCO2 78.1 H POC ABG pO2 208.3 H ABG pO2 ABG HCO3 ABG O2 Saturation ABG Base Excess ABG Hemoglobin ABG Oxyhemoglobin 98.3 H ABG Sodium ABG Potassium 5.0 H ABG Chloride ABG Glucose 182 H Oxyhemoglobin Carboxyhemoglobin 0.4 L Sodium Potassium Chloride Carbon Dioxide BUN Creatinine Glucose POC Glucose 154 H Lactic Acid Calcium Phosphorus Magnesium Ferritin Direct Bilirubin AST ALT Alkaline Phosphatase Lactate Dehydrogenase Total Creatine Kinase C-Reactive Protein Total Protein Albumin Triglycerides Arterial Blood Glucose 182 H Arterial Blood Ionized Calcium 4.3 L Urine Creatinine Urine Chloride Vancomycin Trough Coronavirus (PCR) Crossmatch 06/19/20 06/20/20 06/20/20 23:32 03:00 05:19 WBC RBC Hgb Hct MCHC RDW Plt Count Lymph % (Auto) [place] % (Auto) Lymph # (Auto) [place] # (Auto) Eos # (Auto) Baso # (Auto) Seg Neutrophils % Seg Neuts % (Manual) Lymphocytes % (Manual) Monocytes % (Manual) Basophils % (Manual) Nucleated RBC % Seg Neutrophils # Seg Neutrophils # Man Lymphocytes # (Manual) Monocytes # (Manual) Eosinophils # (Manual) Basophils # (Manual) PT INR APTT D-Dimer Heparin Anti-Xa Level 0.77 H ABG pH POC ABG pCO2 POC ABG pO2 ABG pO2 ABG HCO3 ABG O2 Saturation ABG Base Excess ABG Hemoglobin ABG Oxyhemoglobin ABG Sodium ABG Potassium ABG Chloride ABG Glucose Oxyhemoglobin Carboxyhemoglobin Sodium Potassium Chloride Carbon Dioxide BUN Creatinine Glucose POC Glucose 201 H 190 H Lactic Acid Calcium Phosphorus Magnesium Ferritin Direct Bilirubin AST ALT Alkaline Phosphatase Lactate Dehydrogenase Total Creatine Kinase C-Reactive Protein Total Protein Albumin Triglycerides Arterial Blood Glucose Arterial Blood Ionized Calcium Urine Creatinine Urine Chloride Vancomycin Trough Coronavirus (PCR) Crossmatch 06/20/20 06/20/20 06/20/20 08:25 08:25 11:36 WBC RBC Hgb Hct MCHC RDW Plt Count Lymph % (Auto) [place] % (Auto) Lymph # (Auto) [place] # (Auto) Eos # (Auto) Baso # (Auto) Seg Neutrophils % Seg Neuts % (Manual) Lymphocytes % (Manual) Monocytes % (Manual) Basophils % (Manual) Nucleated RBC % Seg Neutrophils # Seg Neutrophils # Man Lymphocytes # (Manual) Monocytes # (Manual) Eosinophils # (Manual) Basophils # (Manual) PT INR APTT D-Dimer Heparin Anti-Xa Level ABG pH POC ABG pCO2 POC ABG pO2 ABG pO2 ABG HCO3 ABG O2 Saturation ABG Base Excess ABG Hemoglobin ABG Oxyhemoglobin ABG Sodium ABG Potassium ABG Chloride ABG Glucose Oxyhemoglobin Carboxyhemoglobin Sodium 135 L Potassium 5.4 H Chloride 109.2 H Carbon Dioxide 19 L BUN 68 H Creatinine 2.5 H D Glucose 201 H POC Glucose 184 H Lactic Acid Calcium 5.5 L* D Phosphorus Magnesium Ferritin Direct Bilirubin AST 123 H ALT 86 H Alkaline Phosphatase Lactate Dehydrogenase Total Creatine Kinase C-Reactive Protein Total Protein 4.6 L Albumin 1.5 L Triglycerides Arterial Blood Glucose Arterial Blood Ionized Calcium Urine Creatinine Urine Chloride Vancomycin Trough 22.7 H Coronavirus (PCR) Crossmatch 06/20/20 06/20/20 06/20/20 11:40 17:28 20:00 WBC RBC Hgb Hct MCHC RDW Plt Count Lymph % (Auto) [place] % (Auto) Lymph # (Auto) [place] # (Auto) Eos # (Auto) Baso # (Auto) Seg Neutrophils % Seg Neuts % (Manual) Lymphocytes % (Manual) Monocytes % (Manual) Basophils % (Manual) Nucleated RBC % Seg Neutrophils # Seg Neutrophils # Man Lymphocytes # (Manual) Monocytes # (Manual) Eosinophils # (Manual) Basophils # (Manual) PT INR APTT D-Dimer Heparin Anti-Xa Level 0.89 H ABG pH 7.099 L POC ABG pCO2 61.1 H POC ABG pO2 ABG pO2 ABG HCO3 ABG O2 Saturation ABG Base Excess ABG Hemoglobin ABG Oxyhemoglobin ABG Sodium ABG Potassium 5.0 H ABG Chloride 111.0 H ABG Glucose 200 H Oxyhemoglobin Carboxyhemoglobin 0.4 L Sodium Potassium Chloride Carbon Dioxide BUN Creatinine Glucose POC Glucose 165 H Lactic Acid Calcium Phosphorus Magnesium Ferritin Direct Bilirubin AST ALT Alkaline Phosphatase Lactate Dehydrogenase Total Creatine Kinase C-Reactive Protein Total Protein Albumin Triglycerides Arterial Blood Glucose 200 H Arterial Blood Ionized Calcium 4.2 L Urine Creatinine Urine Chloride Vancomycin Trough Coronavirus (PCR) Crossmatch 06/20/20 06/21/20 06/21/20 23:29 05:00 05:20 WBC RBC Hgb Hct MCHC RDW Plt Count Lymph % (Auto) [place] % (Auto) Lymph # (Auto) [place] # (Auto) Eos # (Auto) Baso # (Auto) Seg Neutrophils % Seg Neuts % (Manual) Lymphocytes % (Manual) Monocytes % (Manual) Basophils % (Manual) Nucleated RBC % Seg Neutrophils # Seg Neutrophils # Man Lymphocytes # (Manual) Monocytes # (Manual) Eosinophils # (Manual) Basophils # (Manual) PT INR APTT D-Dimer Heparin Anti-Xa Level ABG pH POC ABG pCO2 POC ABG pO2 ABG pO2 ABG HCO3 ABG O2 Saturation ABG Base Excess ABG Hemoglobin ABG Oxyhemoglobin ABG Sodium ABG Potassium ABG Chloride ABG Glucose Oxyhemoglobin Carboxyhemoglobin Sodium Potassium Chloride 112.0 H Carbon Dioxide 20 L BUN 92 H Creatinine 3.9 H D Glucose 214 H POC Glucose 145 H 191 H Lactic Acid Calcium 6.5 L D Phosphorus Magnesium Ferritin Direct Bilirubin AST 98 H ALT 84 H Alkaline Phosphatase Lactate Dehydrogenase Total Creatine Kinase C-Reactive Protein Total Protein 4.6 L Albumin 2.1 L Triglycerides 180 H Arterial Blood Glucose Arterial Blood Ionized Calcium Urine Creatinine Urine Chloride Vancomycin Trough Coronavirus (PCR) Crossmatch 06/21/20 06/21/20 06/21/20 08:56 11:12 12:43 WBC RBC Hgb Hct MCHC RDW Plt Count Lymph % (Auto) [place] % (Auto) Lymph # (Auto) [place] # (Auto) Eos # (Auto) Baso # (Auto) Seg Neutrophils % Seg Neuts % (Manual) Lymphocytes % (Manual) Monocytes % (Manual) Basophils % (Manual) Nucleated RBC % Seg Neutrophils # Seg Neutrophils # Man Lymphocytes # (Manual) Monocytes # (Manual) Eosinophils # (Manual) Basophils # (Manual) PT INR APTT D-Dimer Heparin Anti-Xa Level 0.28 L ABG pH 7.184 L POC ABG pCO2 48.3 H POC ABG pO2 172.1 H ABG pO2 ABG HCO3 ABG O2 Saturation ABG Base Excess ABG Hemoglobin ABG Oxyhemoglobin 98.7 H ABG Sodium ABG Potassium 4.9 H ABG Chloride 112.0 H ABG Glucose 196 H Oxyhemoglobin Carboxyhemoglobin 0.2 L Sodium Potassium Chloride Carbon Dioxide BUN Creatinine Glucose POC Glucose 177 H Lactic Acid Calcium Phosphorus Magnesium Ferritin Direct Bilirubin AST ALT Alkaline Phosphatase Lactate Dehydrogenase Total Creatine Kinase C-Reactive Protein Total Protein Albumin Triglycerides Arterial Blood Glucose 196 H Arterial Blood Ionized Calcium 4.1 L Urine Creatinine Urine Chloride Vancomycin Trough Coronavirus (PCR) Crossmatch 06/21/20 06/21/20 06/22/20 16:31 Unknown 00:12 WBC RBC Hgb Hct MCHC RDW Plt Count Lymph % (Auto) [place] % (Auto) Lymph # (Auto) [place] # (Auto) Eos # (Auto) Baso # (Auto) Seg Neutrophils % Seg Neuts % (Manual) Lymphocytes % (Manual) Monocytes % (Manual) Basophils % (Manual) Nucleated RBC % Seg Neutrophils # Seg Neutrophils # Man Lymphocytes # (Manual) Monocytes # (Manual) Eosinophils # (Manual) Basophils # (Manual) PT INR APTT D-Dimer Heparin Anti-Xa Level 0.78 H ABG pH POC ABG pCO2 POC ABG pO2 ABG pO2 ABG HCO3 ABG O2 Saturation ABG Base Excess ABG Hemoglobin ABG Oxyhemoglobin ABG Sodium ABG Potassium ABG Chloride ABG Glucose Oxyhemoglobin Carboxyhemoglobin Sodium Potassium Chloride Carbon Dioxide BUN Creatinine Glucose POC Glucose 150 H 173 H Lactic Acid Calcium Phosphorus Magnesium Ferritin Direct Bilirubin AST ALT Alkaline Phosphatase Lactate Dehydrogenase Total Creatine Kinase C-Reactive Protein Total Protein Albumin Triglycerides Arterial Blood Glucose Arterial Blood Ionized Calcium Urine Creatinine Urine Chloride Vancomycin Trough Coronavirus (PCR) Crossmatch 02/10/21 02/10/21 02/10/21 04:00 05:04 05:30 WBC 33.9 H RBC Hgb 11.7 L Hct 35.2 L MCHC RDW 15.8 H Plt Count Lymph % (Auto) [place] % (Auto) Lymph # (Auto) [place] # (Auto) Eos # (Auto) Baso # (Auto) Seg Neutrophils % Seg Neuts % (Manual) 93.0 H Lymphocytes % (Manual) 5.0 L Monocytes % (Manual) Basophils % (Manual) Nucleated RBC % Seg Neutrophils # Seg Neutrophils # Man 31.5 H Lymphocytes # (Manual) Monocytes # (Manual) Eosinophils # (Manual) Basophils # (Manual) PT INR APTT D-Dimer Heparin Anti-Xa Level ABG pH 7.169 L POC ABG pCO2 POC ABG pO2 ABG pO2 ABG HCO3 ABG O2 Saturation ABG Base Excess ABG Hemoglobin ABG Oxyhemoglobin ABG Sodium ABG Potassium 5.1 H ABG Chloride 112.0 H ABG Glucose 186 H Oxyhemoglobin Carboxyhemoglobin 0.3 L Sodium Potassium Chloride Carbon Dioxide BUN Creatinine Glucose POC Glucose 161 H Lactic Acid Calcium Phosphorus Magnesium Ferritin Direct Bilirubin AST ALT Alkaline Phosphatase Lactate Dehydrogenase Total Creatine Kinase C-Reactive Protein Total Protein Albumin Triglycerides Arterial Blood Glucose 186 H Arterial Blood Ionized Calcium 4.1 L Urine Creatinine Urine Chloride Vancomycin Trough Coronavirus (PCR) Crossmatch 06/22/20 06/22/20 06/22/20 05:30 11:39 13:27 WBC RBC Hgb Hct MCHC RDW Plt Count Lymph % (Auto) [place] % (Auto) Lymph # (Auto) [place] # (Auto) Eos # (Auto) Baso # (Auto) Seg Neutrophils % Seg Neuts % (Manual) Lymphocytes % (Manual) Monocytes % (Manual) Basophils % (Manual) Nucleated RBC % Seg Neutrophils # Seg Neutrophils # Man Lymphocytes # (Manual) Monocytes # (Manual) Eosinophils # (Manual) Basophils # (Manual) PT INR APTT D-Dimer Heparin Anti-Xa Level ABG pH POC ABG pCO2 POC ABG pO2 ABG pO2 ABG HCO3 ABG O2 Saturation ABG Base Excess ABG Hemoglobin ABG Oxyhemoglobin ABG Sodium ABG Potassium ABG Chloride ABG Glucose Oxyhemoglobin Carboxyhemoglobin Sodium Potassium 5.7 H Chloride 111.3 H Carbon Dioxide 18 L BUN 112 H Creatinine 5.0 H Glucose 173 H POC Glucose 172 H 176 H Lactic Acid Calcium 6.7 L Phosphorus Magnesium Ferritin Direct Bilirubin AST ALT Alkaline Phosphatase Lactate Dehydrogenase Total Creatine Kinase C-Reactive Protein Total Protein Albumin Triglycerides Arterial Blood Glucose Arterial Blood Ionized Calcium Urine Creatinine Urine Chloride Vancomycin Trough Coronavirus (PCR) Crossmatch 06/22/20 06/22/20 06/22/20 14:37 17:00 17:40 WBC RBC Hgb Hct MCHC RDW Plt Count Lymph % (Auto) [place] % (Auto) Lymph # (Auto) [place] # (Auto) Eos # (Auto) Baso # (Auto) Seg Neutrophils % Seg Neuts % (Manual) Lymphocytes % (Manual) Monocytes % (Manual) Basophils % (Manual) Nucleated RBC % Seg Neutrophils # Seg Neutrophils # Man Lymphocytes # (Manual) Monocytes # (Manual) Eosinophils # (Manual) Basophils # (Manual) PT INR APTT D-Dimer Heparin Anti-Xa Level 1.32 H ABG pH POC ABG pCO2 POC ABG pO2 ABG pO2 ABG HCO3 ABG O2 Saturation ABG Base Excess ABG Hemoglobin ABG Oxyhemoglobin ABG Sodium ABG Potassium ABG Chloride ABG Glucose Oxyhemoglobin Carboxyhemoglobin Sodium Potassium Chloride Carbon Dioxide BUN Creatinine Glucose POC Glucose 171 H Lactic Acid Calcium Phosphorus Magnesium Ferritin Direct Bilirubin AST ALT Alkaline Phosphatase Lactate Dehydrogenase Total Creatine Kinase C-Reactive Protein 5.30 H Total Protein Albumin Triglycerides Arterial Blood Glucose Arterial Blood Ionized Calcium Urine Creatinine Urine Chloride Vancomycin Trough Coronavirus (PCR) Crossmatch 06/22/20 06/23/20 06/23/20 23:36 02:13 02:41 WBC RBC Hgb Hct MCHC RDW Plt Count Lymph % (Auto) [place] % (Auto) Lymph # (Auto) [place] # (Auto) Eos # (Auto) Baso # (Auto) Seg Neutrophils % Seg Neuts % (Manual) Lymphocytes % (Manual) Monocytes % (Manual) Basophils % (Manual) Nucleated RBC % Seg Neutrophils # Seg Neutrophils # Man Lymphocytes # (Manual) Monocytes # (Manual) Eosinophils # (Manual) Basophils # (Manual) PT INR APTT D-Dimer Heparin Anti-Xa Level 0.21 L ABG pH 7.318 L POC ABG pCO2 POC ABG pO2 157.5 H ABG pO2 ABG HCO3 ABG O2 Saturation ABG Base Excess ABG Hemoglobin ABG Oxyhemoglobin ABG Sodium 135.6 L ABG Potassium 4.6 H ABG Chloride 110.0 H ABG Glucose 169 H Oxyhemoglobin Carboxyhemoglobin Sodium Potassium Chloride Carbon Dioxide BUN Creatinine Glucose POC Glucose 155 H Lactic Acid Calcium Phosphorus Magnesium Ferritin Direct Bilirubin AST ALT Alkaline Phosphatase Lactate Dehydrogenase Total Creatine Kinase C-Reactive Protein Total Protein Albumin Triglycerides Arterial Blood Glucose 169 H Arterial Blood Ionized Calcium Urine Creatinine Urine Chloride Vancomycin Trough Coronavirus (PCR) Crossmatch 06/23/20 06/23/20 06/23/20 04:00 04:00 05:24 WBC 27.4 H RBC Hgb 11.3 L Hct 33.8 L MCHC RDW Plt Count Lymph % (Auto) [place] % (Auto) Lymph # (Auto) [place] # (Auto) Eos # (Auto) Baso # (Auto) Seg Neutrophils % Seg Neuts % (Manual) 93.0 H Lymphocytes % (Manual) 1.0 L Monocytes % (Manual) Basophils % (Manual) Nucleated RBC % 1.0 H Seg Neutrophils # Seg Neutrophils # Man 25.5 H Lymphocytes # (Manual) 0.3 L Monocytes # (Manual) 1.1 H Eosinophils # (Manual) Basophils # (Manual) PT INR APTT D-Dimer Heparin Anti-Xa Level ABG pH POC ABG pCO2 POC ABG pO2 ABG pO2 ABG HCO3 ABG O2 Saturation ABG Base Excess ABG Hemoglobin ABG Oxyhemoglobin ABG Sodium ABG Potassium ABG Chloride ABG Glucose Oxyhemoglobin Carboxyhemoglobin Sodium Potassium Chloride 107.6 H Carbon Dioxide 20 L BUN 100 H Creatinine 4.7 H Glucose 168 H POC Glucose 151 H Lactic Acid Calcium Phosphorus Magnesium Ferritin Direct Bilirubin AST ALT Alkaline Phosphatase Lactate Dehydrogenase Total Creatine Kinase C-Reactive Protein Total Protein Albumin Triglycerides Arterial Blood Glucose Arterial Blood Ionized Calcium Urine Creatinine Urine Chloride Vancomycin Trough Coronavirus (PCR) Crossmatch 06/23/20 06/23/20 06/23/20 11:30 17:18 23:50 WBC RBC Hgb Hct MCHC RDW Plt Count Lymph % (Auto) [place] % (Auto) Lymph # (Auto) [place] # (Auto) Eos # (Auto) Baso # (Auto) Seg Neutrophils % Seg Neuts % (Manual) Lymphocytes % (Manual) Monocytes % (Manual) Basophils % (Manual) Nucleated RBC % Seg Neutrophils # Seg Neutrophils # Man Lymphocytes # (Manual) Monocytes # (Manual) Eosinophils # (Manual) Basophils # (Manual) PT INR APTT D-Dimer Heparin Anti-Xa Level ABG pH POC ABG pCO2 POC ABG pO2 ABG pO2 ABG HCO3 ABG O2 Saturation ABG Base Excess ABG Hemoglobin ABG Oxyhemoglobin ABG Sodium ABG Potassium ABG Chloride ABG Glucose Oxyhemoglobin Carboxyhemoglobin Sodium Potassium Chloride Carbon Dioxide BUN Creatinine Glucose POC Glucose 157 H 156 H 162 H Lactic Acid Calcium Phosphorus Magnesium Ferritin Direct Bilirubin AST ALT Alkaline Phosphatase Lactate Dehydrogenase Total Creatine Kinase C-Reactive Protein Total Protein Albumin Triglycerides Arterial Blood Glucose Arterial Blood Ionized Calcium Urine Creatinine Urine Chloride Vancomycin Trough Coronavirus (PCR) Crossmatch 06/24/20 06/24/20 06/24/20 04:41 05:57 06:30 WBC 34.3 H RBC Hgb 10.9 L Hct 32.6 L MCHC RDW Plt Count Lymph % (Auto) 2.0 L [place] % (Auto) Lymph # (Auto) 0.7 L [place] # (Auto) 1.2 H Eos # (Auto) Baso # (Auto) Seg Neutrophils % Seg Neuts % (Manual) 96.0 H Lymphocytes % (Manual) 3.0 L Monocytes % (Manual) Basophils % (Manual) Nucleated RBC % Seg Neutrophils # 32.3 H Seg Neutrophils # Man 32.9 H Lymphocytes # (Manual) 1.0 L Monocytes # (Manual) Eosinophils # (Manual) Basophils # (Manual) PT INR APTT D-Dimer Heparin Anti-Xa Level ABG pH POC ABG pCO2 POC ABG pO2 71.1 L ABG pO2 ABG HCO3 ABG O2 Saturation ABG Base Excess ABG Hemoglobin ABG Oxyhemoglobin 92.4 L ABG Sodium 115.6 L ABG Potassium ABG Chloride ABG Glucose 159 H Oxyhemoglobin Carboxyhemoglobin Sodium Potassium Chloride Carbon Dioxide BUN Creatinine Glucose POC Glucose 143 H Lactic Acid Calcium Phosphorus Magnesium Ferritin Direct Bilirubin AST ALT Alkaline Phosphatase Lactate Dehydrogenase Total Creatine Kinase C-Reactive Protein Total Protein Albumin Triglycerides Arterial Blood Glucose 159 H Arterial Blood Ionized Calcium 4.2 L Urine Creatinine Urine Chloride Vancomycin Trough Coronavirus (PCR) Crossmatch 06/24/20 06/24/20 06/24/20 07:03 09:37 11:56 WBC RBC Hgb Hct MCHC RDW Plt Count Lymph % (Auto) [place] % (Auto) Lymph # (Auto) [place] # (Auto) Eos # (Auto) Baso # (Auto) Seg Neutrophils % Seg Neuts % (Manual) Lymphocytes % (Manual) Monocytes % (Manual) Basophils % (Manual) Nucleated RBC % Seg Neutrophils # Seg Neutrophils # Man Lymphocytes # (Manual) Monocytes # (Manual) Eosinophils # (Manual) Basophils # (Manual) PT INR APTT D-Dimer Heparin Anti-Xa Level 0.26 L ABG pH POC ABG pCO2 POC ABG pO2 ABG pO2 ABG HCO3 ABG O2 Saturation ABG Base Excess ABG Hemoglobin ABG Oxyhemoglobin ABG Sodium ABG Potassium ABG Chloride ABG Glucose Oxyhemoglobin Carboxyhemoglobin Sodium Potassium 5.1 H Chloride Carbon Dioxide BUN 103 H Creatinine 5.0 H Glucose 163 H POC Glucose 149 H Lactic Acid Calcium 7.6 L Phosphorus Magnesium Ferritin Direct Bilirubin AST ALT Alkaline Phosphatase Lactate Dehydrogenase Total Creatine Kinase C-Reactive Protein Total Protein Albumin Triglycerides Arterial Blood Glucose Arterial Blood Ionized Calcium Urine Creatinine Urine Chloride Vancomycin Trough Coronavirus (PCR) Crossmatch 06/24/20 06/25/20 06/25/20 18:09 01:05 03:00 WBC RBC Hgb 10.6 L Hct 32.1 L MCHC RDW Plt Count Lymph % (Auto) [place] % (Auto) Lymph # (Auto) [place] # (Auto) Eos # (Auto) Baso # (Auto) Seg Neutrophils % Seg Neuts % (Manual) Lymphocytes % (Manual) Monocytes % (Manual) Basophils % (Manual) Nucleated RBC % Seg Neutrophils # Seg Neutrophils # Man Lymphocytes # (Manual) Monocytes # (Manual) Eosinophils # (Manual) Basophils # (Manual) PT INR APTT D-Dimer Heparin Anti-Xa Level ABG pH POC ABG pCO2 POC ABG pO2 ABG pO2 ABG HCO3 ABG O2 Saturation ABG Base Excess ABG Hemoglobin ABG Oxyhemoglobin ABG Sodium ABG Potassium ABG Chloride ABG Glucose Oxyhemoglobin Carboxyhemoglobin Sodium Potassium Chloride Carbon Dioxide BUN Creatinine Glucose POC Glucose 141 H 137 H Lactic Acid Calcium Phosphorus Magnesium Ferritin Direct Bilirubin AST ALT Alkaline Phosphatase Lactate Dehydrogenase Total Creatine Kinase C-Reactive Protein Total Protein Albumin Triglycerides Arterial Blood Glucose Arterial Blood Ionized Calcium Urine Creatinine Urine Chloride Vancomycin Trough Coronavirus (PCR) Crossmatch 06/25/20 06/25/20 06/25/20 03:48 05:17 12:08 WBC RBC Hgb Hct MCHC RDW Plt Count Lymph % (Auto) [place] % (Auto) Lymph # (Auto) [place] # (Auto) Eos # (Auto) Baso # (Auto) Seg Neutrophils % Seg Neuts % (Manual) Lymphocytes % (Manual) Monocytes % (Manual) Basophils % (Manual) Nucleated RBC % Seg Neutrophils # Seg Neutrophils # Man Lymphocytes # (Manual) Monocytes # (Manual) Eosinophils # (Manual) Basophils # (Manual) PT INR APTT D-Dimer Heparin Anti-Xa Level ABG pH POC ABG pCO2 29.4 L POC ABG pO2 67.1 L ABG pO2 ABG HCO3 ABG O2 Saturation ABG Base Excess ABG Hemoglobin 11.5 L ABG Oxyhemoglobin ABG Sodium 124.1 L ABG Potassium 4.6 H ABG Chloride ABG Glucose 159 H Oxyhemoglobin Carboxyhemoglobin Sodium Potassium Chloride Carbon Dioxide BUN Creatinine Glucose POC Glucose 149 H 150 H Lactic Acid Calcium Phosphorus Magnesium Ferritin Direct Bilirubin AST ALT Alkaline Phosphatase Lactate Dehydrogenase Total Creatine Kinase C-Reactive Protein Total Protein Albumin Triglycerides Arterial Blood Glucose 159 H Arterial Blood Ionized Calcium 4.2 L Urine Creatinine Urine Chloride Vancomycin Trough Coronavirus (PCR) Crossmatch 06/25/20 06/25/20 06/25/20 16:27 16:35 17:27 WBC RBC Hgb Hct MCHC RDW Plt Count Lymph % (Auto) [place] % (Auto) Lymph # (Auto) [place] # (Auto) Eos # (Auto) Baso # (Auto) Seg Neutrophils % Seg Neuts % (Manual) Lymphocytes % (Manual) Monocytes % (Manual) Basophils % (Manual) Nucleated RBC % Seg Neutrophils # Seg Neutrophils # Man Lymphocytes # (Manual) Monocytes # (Manual) Eosinophils # (Manual) Basophils # (Manual) PT INR APTT D-Dimer Heparin Anti-Xa Level < 0.10 L ABG pH POC ABG pCO2 POC ABG pO2 ABG pO2 ABG HCO3 ABG O2 Saturation ABG Base Excess ABG Hemoglobin ABG Oxyhemoglobin ABG Sodium ABG Potassium ABG Chloride ABG Glucose Oxyhemoglobin Carboxyhemoglobin Sodium Potassium Chloride Carbon Dioxide BUN Creatinine Glucose POC Glucose 143 H 156 H Lactic Acid Calcium Phosphorus Magnesium Ferritin Direct Bilirubin AST ALT Alkaline Phosphatase Lactate Dehydrogenase Total Creatine Kinase C-Reactive Protein Total Protein Albumin Triglycerides Arterial Blood Glucose Arterial Blood Ionized Calcium Urine Creatinine Urine Chloride Vancomycin Trough Coronavirus (PCR) Crossmatch 06/25/20 06/25/20 06/25/20 20:00 20:55 23:10 WBC 32.7 H RBC 3.06 L Hgb 9.0 L 9.5 L Hct 26.7 L 28.6 L MCHC RDW Plt Count Lymph % (Auto) [place] % (Auto) Lymph # (Auto) [place] # (Auto) Eos # (Auto) Baso # (Auto) Seg Neutrophils % Seg Neuts % (Manual) Lymphocytes % (Manual) 2.0 L Monocytes % (Manual) Basophils % (Manual) Nucleated RBC % Seg Neutrophils # Seg Neutrophils # Man 30.7 H Lymphocytes # (Manual) 0.7 L Monocytes # (Manual) 1.3 H Eosinophils # (Manual) Basophils # (Manual) PT 17.7 H INR 1.47 H APTT 65.8 H* D-Dimer Heparin Anti-Xa Level ABG pH POC ABG pCO2 POC ABG pO2 ABG pO2 ABG HCO3 ABG O2 Saturation ABG Base Excess ABG Hemoglobin ABG Oxyhemoglobin ABG Sodium ABG Potassium ABG Chloride ABG Glucose Oxyhemoglobin Carboxyhemoglobin Sodium Potassium Chloride Carbon Dioxide BUN Creatinine Glucose POC Glucose Lactic Acid Calcium Phosphorus Magnesium Ferritin Direct Bilirubin AST ALT Alkaline Phosphatase Lactate Dehydrogenase Total Creatine Kinase C-Reactive Protein Total Protein Albumin Triglycerides Arterial Blood Glucose Arterial Blood Ionized Calcium Urine Creatinine Urine Chloride Vancomycin Trough Coronavirus (PCR) Crossmatch 06/25/20 06/26/20 06/26/20 23:14 01:30 03:25 WBC RBC Hgb Hct MCHC RDW Plt Count Lymph % (Auto) [place] % (Auto) Lymph # (Auto) [place] # (Auto) Eos # (Auto) Baso # (Auto) Seg Neutrophils % Seg Neuts % (Manual) Lymphocytes % (Manual) Monocytes % (Manual) Basophils % (Manual) Nucleated RBC % Seg Neutrophils # Seg Neutrophils # Man Lymphocytes # (Manual) Monocytes # (Manual) Eosinophils # (Manual) Basophils # (Manual) PT INR APTT D-Dimer Heparin Anti-Xa Level < 0.10 L ABG pH POC ABG pCO2 POC ABG pO2 ABG pO2 ABG HCO3 ABG O2 Saturation ABG Base Excess ABG Hemoglobin 11.8 L ABG Oxyhemoglobin ABG Sodium 127.1 L ABG Potassium 5.4 H ABG Chloride ABG Glucose 155 H Oxyhemoglobin Carboxyhemoglobin 0.3 L Sodium Potassium Chloride Carbon Dioxide BUN Creatinine Glucose POC Glucose 148 H Lactic Acid Calcium Phosphorus Magnesium Ferritin Direct Bilirubin AST ALT Alkaline Phosphatase Lactate Dehydrogenase Total Creatine Kinase C-Reactive Protein Total Protein Albumin Triglycerides Arterial Blood Glucose 155 H Arterial Blood Ionized Calcium 4.2 L Urine Creatinine Urine Chloride Vancomycin Trough Coronavirus (PCR) Crossmatch 06/26/20 06/26/20 06/26/20 03:59 05:14 05:47 WBC 36.5 H RBC 3.26 L Hgb 9.7 L Hct 28.2 L MCHC RDW Plt Count Lymph % (Auto) [place] % (Auto) Lymph # (Auto) [place] # (Auto) Eos # (Auto) Baso # (Auto) Seg Neutrophils % Seg Neuts % (Manual) 92.0 H Lymphocytes % (Manual) 4.0 L Monocytes % (Manual) Basophils % (Manual) Nucleated RBC % Seg Neutrophils # Seg Neutrophils # Man 33.6 H Lymphocytes # (Manual) Monocytes # (Manual) Eosinophils # (Manual) Basophils # (Manual) PT INR APTT D-Dimer Heparin Anti-Xa Level ABG pH POC ABG pCO2 POC ABG pO2 ABG pO2 ABG HCO3 ABG O2 Saturation ABG Base Excess ABG Hemoglobin ABG Oxyhemoglobin ABG Sodium ABG Potassium ABG Chloride ABG Glucose Oxyhemoglobin Carboxyhemoglobin Sodium Potassium 5.9 H Chloride Carbon Dioxide 20 L BUN 144 H Creatinine 6.4 H Glucose 149 H POC Glucose 128 H Lactic Acid Calcium 7.6 L Phosphorus Magnesium Ferritin Direct Bilirubin AST ALT Alkaline Phosphatase Lactate Dehydrogenase Total Creatine Kinase C-Reactive Protein Total Protein Albumin Triglycerides Arterial Blood Glucose Arterial Blood Ionized Calcium Urine Creatinine Urine Chloride Vancomycin Trough Coronavirus (PCR) Crossmatch 06/26/20 06/26/20 06/26/20 05:47 12:47 17:42 WBC RBC Hgb Hct MCHC RDW Plt Count Lymph % (Auto) [place] % (Auto) Lymph # (Auto) [place] # (Auto) Eos # (Auto) Baso # (Auto) Seg Neutrophils % Seg Neuts % (Manual) Lymphocytes % (Manual) Monocytes % (Manual) Basophils % (Manual) Nucleated RBC % Seg Neutrophils # Seg Neutrophils # Man Lymphocytes # (Manual) Monocytes # (Manual) Eosinophils # (Manual) Basophils # (Manual) PT 17.4 H INR 1.44 H APTT D-Dimer Heparin Anti-Xa Level ABG pH POC ABG pCO2 POC ABG pO2 ABG pO2 ABG HCO3 ABG O2 Saturation ABG Base Excess ABG Hemoglobin ABG Oxyhemoglobin ABG Sodium ABG Potassium ABG Chloride ABG Glucose Oxyhemoglobin Carboxyhemoglobin Sodium Potassium Chloride Carbon Dioxide BUN Creatinine Glucose POC Glucose 124 H 127 H Lactic Acid Calcium Phosphorus Magnesium Ferritin Direct Bilirubin AST ALT Alkaline Phosphatase Lactate Dehydrogenase Total Creatine Kinase C-Reactive Protein Total Protein Albumin Triglycerides Arterial Blood Glucose Arterial Blood Ionized Calcium Urine Creatinine Urine Chloride Vancomycin Trough Coronavirus (PCR) Crossmatch 06/26/20 06/27/20 06/27/20 23:30 03:32 04:00 WBC RBC Hgb 8.7 L Hct 26.4 L MCHC RDW Plt Count Lymph % (Auto) [place] % (Auto) Lymph # (Auto) [place] # (Auto) Eos # (Auto) Baso # (Auto) Seg Neutrophils % Seg Neuts % (Manual) Lymphocytes % (Manual) Monocytes % (Manual) Basophils % (Manual) Nucleated RBC % Seg Neutrophils # Seg Neutrophils # Man Lymphocytes # (Manual) Monocytes # (Manual) Eosinophils # (Manual) Basophils # (Manual) PT INR APTT D-Dimer Heparin Anti-Xa Level ABG pH 7.298 L POC ABG pCO2 POC ABG pO2 ABG pO2 ABG HCO3 ABG O2 Saturation ABG Base Excess ABG Hemoglobin 9.6 L ABG Oxyhemoglobin ABG Sodium 124.4 L ABG Potassium 6.6 H ABG Chloride ABG Glucose 136 H Oxyhemoglobin Carboxyhemoglobin Sodium Potassium Chloride Carbon Dioxide BUN Creatinine Glucose POC Glucose 123 H Lactic Acid Calcium Phosphorus Magnesium Ferritin Direct Bilirubin AST ALT Alkaline Phosphatase Lactate Dehydrogenase Total Creatine Kinase C-Reactive Protein Total Protein Albumin Triglycerides Arterial Blood Glucose 136 H Arterial Blood Ionized Calcium 4.1 L Urine Creatinine Urine Chloride Vancomycin Trough Coronavirus (PCR) Crossmatch 06/27/20 06/27/20 06/27/20 05:26 10:14 11:58 WBC RBC Hgb Hct MCHC RDW Plt Count Lymph % (Auto) [place] % (Auto) Lymph # (Auto) [place] # (Auto) Eos # (Auto) Baso # (Auto) Seg Neutrophils % Seg Neuts % (Manual) Lymphocytes % (Manual) Monocytes % (Manual) Basophils % (Manual) Nucleated RBC % Seg Neutrophils # Seg Neutrophils # Man Lymphocytes # (Manual) Monocytes # (Manual) Eosinophils # (Manual) Basophils # (Manual) PT INR APTT D-Dimer Heparin Anti-Xa Level ABG pH POC ABG pCO2 POC ABG pO2 ABG pO2 ABG HCO3 ABG O2 Saturation ABG Base Excess ABG Hemoglobin ABG Oxyhemoglobin ABG Sodium ABG Potassium ABG Chloride ABG Glucose Oxyhemoglobin Carboxyhemoglobin Sodium 136 L Potassium 7.0 H* Chloride 97.8 L Carbon Dioxide BUN 172 H Creatinine 7.4 H Glucose 129 H POC Glucose 124 H 115 H Lactic Acid Calcium 7.6 L Phosphorus Magnesium Ferritin Direct Bilirubin AST ALT Alkaline Phosphatase Lactate Dehydrogenase Total Creatine Kinase C-Reactive Protein Total Protein Albumin Triglycerides Arterial Blood Glucose Arterial Blood Ionized Calcium Urine Creatinine Urine Chloride Vancomycin Trough Coronavirus (PCR) Crossmatch 06/27/20 06/27/20 06/27/20 17:32 18:30 23:24 WBC RBC Hgb Hct MCHC RDW Plt Count Lymph % (Auto) [place] % (Auto) Lymph # (Auto) [place] # (Auto) Eos # (Auto) Baso # (Auto) Seg Neutrophils % Seg Neuts % (Manual) Lymphocytes % (Manual) Monocytes % (Manual) Basophils % (Manual) Nucleated RBC % Seg Neutrophils # Seg Neutrophils # Man Lymphocytes # (Manual) Monocytes # (Manual) Eosinophils # (Manual) Basophils # (Manual) PT INR APTT D-Dimer Heparin Anti-Xa Level ABG pH POC ABG pCO2 POC ABG pO2 ABG pO2 ABG HCO3 ABG O2 Saturation ABG Base Excess ABG Hemoglobin ABG Oxyhemoglobin ABG Sodium ABG Potassium ABG Chloride ABG Glucose Oxyhemoglobin Carboxyhemoglobin Sodium Potassium 7.3 H* Chloride Carbon Dioxide BUN Creatinine Glucose POC Glucose 122 H 116 H Lactic Acid Calcium Phosphorus Magnesium Ferritin Direct Bilirubin AST ALT Alkaline Phosphatase Lactate Dehydrogenase Total Creatine Kinase C-Reactive Protein Total Protein Albumin Triglycerides Arterial Blood Glucose Arterial Blood Ionized Calcium Urine Creatinine Urine Chloride Vancomycin Trough Coronavirus (PCR) Crossmatch 06/28/20 06/28/20 06/28/20 00:00 02:16 05:37 WBC RBC Hgb Hct MCHC RDW Plt Count Lymph % (Auto) [place] % (Auto) Lymph # (Auto) [place] # (Auto) Eos # (Auto) Baso # (Auto) Seg Neutrophils % Seg Neuts % (Manual) Lymphocytes % (Manual) Monocytes % (Manual) Basophils % (Manual) Nucleated RBC % Seg Neutrophils # Seg Neutrophils # Man Lymphocytes # (Manual) Monocytes # (Manual) Eosinophils # (Manual) Basophils # (Manual) PT INR APTT D-Dimer Heparin Anti-Xa Level ABG pH POC ABG pCO2 POC ABG pO2 79.0 L ABG pO2 ABG HCO3 ABG O2 Saturation ABG Base Excess ABG Hemoglobin 11.7 L ABG Oxyhemoglobin ABG Sodium 128.1 L ABG Potassium 6.6 H ABG Chloride ABG Glucose 124 H Oxyhemoglobin Carboxyhemoglobin Sodium Potassium 7.3 H* Chloride Carbon Dioxide BUN Creatinine Glucose POC Glucose 115 H Lactic Acid Calcium Phosphorus Magnesium Ferritin Direct Bilirubin AST ALT Alkaline Phosphatase Lactate Dehydrogenase Total Creatine Kinase C-Reactive Protein Total Protein Albumin Triglycerides Arterial Blood Glucose 124 H Arterial Blood Ionized Calcium 4.2 L Urine Creatinine Urine Chloride Vancomycin Trough Coronavirus (PCR) Crossmatch 06/28/20 06/28/20 06/28/20 10:03 10:03 11:51 WBC 33.6 H RBC 3.03 L Hgb 8.9 L Hct 27.0 L MCHC RDW Plt Count Lymph % (Auto) [place] % (Auto) Lymph # (Auto) [place] # (Auto) Eos # (Auto) Baso # (Auto) Seg Neutrophils % Seg Neuts % (Manual) Lymphocytes % (Manual) Monocytes % (Manual) Basophils % (Manual) Nucleated RBC % Seg Neutrophils # Seg Neutrophils # Man Lymphocytes # (Manual) Monocytes # (Manual) Eosinophils # (Manual) Basophils # (Manual) PT INR APTT D-Dimer Heparin Anti-Xa Level ABG pH POC ABG pCO2 POC ABG pO2 ABG pO2 ABG HCO3 ABG O2 Saturation ABG Base Excess ABG Hemoglobin ABG Oxyhemoglobin ABG Sodium ABG Potassium ABG Chloride ABG Glucose Oxyhemoglobin Carboxyhemoglobin Sodium 136 L Potassium 6.5 H* Chloride Carbon Dioxide 20 L BUN 129 H Creatinine 5.8 H Glucose 113 H POC Glucose 107 H Lactic Acid Calcium 7.6 L Phosphorus Magnesium Ferritin Direct Bilirubin AST ALT Alkaline Phosphatase Lactate Dehydrogenase Total Creatine Kinase C-Reactive Protein Total Protein Albumin Triglycerides Arterial Blood Glucose Arterial Blood Ionized Calcium Urine Creatinine Urine Chloride Vancomycin Trough Coronavirus (PCR) Crossmatch 06/28/20 06/28/20 06/29/20 17:45 Unknown 03:15 WBC RBC Hgb Hct MCHC RDW Plt Count Lymph % (Auto) [place] % (Auto) Lymph # (Auto) [place] # (Auto) Eos # (Auto) Baso # (Auto) Seg Neutrophils % Seg Neuts % (Manual) Lymphocytes % (Manual) Monocytes % (Manual) Basophils % (Manual) Nucleated RBC % Seg Neutrophils # Seg Neutrophils # Man Lymphocytes # (Manual) Monocytes # (Manual) Eosinophils # (Manual) Basophils # (Manual) PT INR APTT D-Dimer Heparin Anti-Xa Level ABG pH POC ABG pCO2 POC ABG pO2 ABG pO2 ABG HCO3 ABG O2 Saturation ABG Base Excess ABG Hemoglobin 7.8 L ABG Oxyhemoglobin ABG Sodium 127.4 L ABG Potassium 5.5 H ABG Chloride 97.0 L ABG Glucose 96 H Oxyhemoglobin Carboxyhemoglobin Sodium Potassium 5.4 H Chloride Carbon Dioxide BUN Creatinine Glucose POC Glucose 117 H Lactic Acid Calcium Phosphorus Magnesium Ferritin Direct Bilirubin AST ALT Alkaline Phosphatase Lactate Dehydrogenase Total Creatine Kinase C-Reactive Protein Total Protein Albumin Triglycerides Arterial Blood Glucose 96 H Arterial Blood Ionized Calcium 4.0 L Urine Creatinine Urine Chloride Vancomycin Trough Coronavirus (PCR) Crossmatch 06/29/20 06/29/20 06/29/20 03:45 Unknown Unknown WBC RBC Hgb Hct MCHC RDW Plt Count Lymph % (Auto) [place] % (Auto) Lymph # (Auto) [place] # (Auto) Eos # (Auto) Baso # (Auto) Seg Neutrophils % Seg Neuts % (Manual) Lymphocytes % (Manual) Monocytes % (Manual) Basophils % (Manual) Nucleated RBC % Seg Neutrophils # Seg Neutrophils # Man Lymphocytes # (Manual) Monocytes # (Manual) Eosinophils # (Manual) Basophils # (Manual) PT INR APTT D-Dimer Heparin Anti-Xa Level ABG pH POC ABG pCO2 POC ABG pO2 ABG pO2 ABG HCO3 ABG O2 Saturation ABG Base Excess ABG Hemoglobin ABG Oxyhemoglobin ABG Sodium ABG Potassium ABG Chloride ABG Glucose Oxyhemoglobin Carboxyhemoglobin Sodium 135 L Potassium 6.0 H 6.1 H* Chloride 94.8 L Carbon Dioxide BUN 109 H 114 H Creatinine 5.5 H Glucose POC Glucose Lactic Acid Calcium 7.4 L Phosphorus Magnesium Ferritin Direct Bilirubin AST 47 H ALT Alkaline Phosphatase Lactate Dehydrogenase Total Creatine Kinase C-Reactive Protein Total Protein 4.9 L Albumin 2.2 L Triglycerides Arterial Blood Glucose Arterial Blood Ionized Calcium Urine Creatinine Urine Chloride Vancomycin Trough Coronavirus (PCR) Crossmatch 06/29/20 06/29/20 06/30/20 Unknown Unknown 03:32 WBC 20.7 H RBC 2.57 L Hgb 7.6 L Hct 23.0 L MCHC RDW Plt Count Lymph % (Auto) [place] % (Auto) Lymph # (Auto) [place] # (Auto) Eos # (Auto) Baso # (Auto) Seg Neutrophils % Seg Neuts % (Manual) Lymphocytes % (Manual) Monocytes % (Manual) Basophils % (Manual) Nucleated RBC % Seg Neutrophils # Seg Neutrophils # Man Lymphocytes # (Manual) Monocytes # (Manual) Eosinophils # (Manual) Basophils # (Manual) PT INR APTT D-Dimer Heparin Anti-Xa Level ABG pH POC ABG pCO2 POC ABG pO2 ABG pO2 ABG HCO3 ABG O2 Saturation ABG Base Excess ABG Hemoglobin 11.4 L ABG Oxyhemoglobin ABG Sodium 130.1 L ABG Potassium 5.0 H ABG Chloride ABG Glucose Oxyhemoglobin Carboxyhemoglobin Sodium Potassium Chloride Carbon Dioxide BUN Creatinine Glucose POC Glucose Lactic Acid Calcium Phosphorus Magnesium Ferritin Direct Bilirubin AST ALT Alkaline Phosphatase Lactate Dehydrogenase Total Creatine Kinase 618 H C-Reactive Protein Total Protein Albumin Triglycerides Arterial Blood Glucose Arterial Blood Ionized Calcium 3.9 L Urine Creatinine Urine Chloride Vancomycin Trough Coronavirus (PCR) Crossmatch 06/30/20 06/30/20 06/30/20 03:50 03:50 11:39 WBC 13.1 H RBC Hgb Hct MCHC RDW Plt Count Lymph % (Auto) [place] % (Auto) Lymph # (Auto) [place] # (Auto) Eos # (Auto) Baso # (Auto) Seg Neutrophils % Seg Neuts % (Manual) 95.0 H Lymphocytes % (Manual) 3.0 L Monocytes % (Manual) Basophils % (Manual) Nucleated RBC % Seg Neutrophils # Seg Neutrophils # Man 12.4 H Lymphocytes # (Manual) 0.4 L Monocytes # (Manual) Eosinophils # (Manual) Basophils # (Manual) PT INR APTT D-Dimer Heparin Anti-Xa Level ABG pH POC ABG pCO2 POC ABG pO2 ABG pO2 ABG HCO3 ABG O2 Saturation ABG Base Excess ABG Hemoglobin ABG Oxyhemoglobin ABG Sodium ABG Potassium ABG Chloride ABG Glucose Oxyhemoglobin Carboxyhemoglobin Sodium 135 L Potassium 5.4 H D Chloride 93.6 L Carbon Dioxide BUN 85 H Creatinine 4.6 H Glucose POC Glucose 111 H Lactic Acid Calcium 7.1 L Phosphorus 9.40 H Magnesium Ferritin Direct Bilirubin AST ALT Alkaline Phosphatase Lactate Dehydrogenase Total Creatine Kinase C-Reactive Protein Total Protein Albumin Triglycerides Arterial Blood Glucose Arterial Blood Ionized Calcium Urine Creatinine Urine Chloride Vancomycin Trough Coronavirus (PCR) Crossmatch 06/30/20 06/30/20 07/01/20 13:12 Unknown 03:19 WBC RBC Hgb 7.8 L D Hct 23.2 L D MCHC RDW Plt Count Lymph % (Auto) [place] % (Auto) Lymph # (Auto) [place] # (Auto) Eos # (Auto) Baso # (Auto) Seg Neutrophils % Seg Neuts % (Manual) Lymphocytes % (Manual) Monocytes % (Manual) Basophils % (Manual) Nucleated RBC % Seg Neutrophils # Seg Neutrophils # Man Lymphocytes # (Manual) Monocytes # (Manual) Eosinophils # (Manual) Basophils # (Manual) PT INR APTT D-Dimer Heparin Anti-Xa Level ABG pH 7.461 H POC ABG pCO2 POC ABG pO2 77.2 L ABG pO2 ABG HCO3 ABG O2 Saturation ABG Base Excess ABG Hemoglobin 6.9 L ABG Oxyhemoglobin ABG Sodium 128.5 L ABG Potassium ABG Chloride 97.0 L ABG Glucose Oxyhemoglobin Carboxyhemoglobin Sodium Potassium Chloride Carbon Dioxide BUN Creatinine Glucose POC Glucose Lactic Acid Calcium Phosphorus Magnesium Ferritin Direct Bilirubin AST ALT Alkaline Phosphatase Lactate Dehydrogenase Total Creatine Kinase C-Reactive Protein Total Protein Albumin Triglycerides Arterial Blood Glucose Arterial Blood Ionized Calcium 3.7 L Urine Creatinine Urine Chloride Vancomycin Trough Coronavirus (PCR) Positive A Crossmatch 07/01/20 07/01/20 07/01/20 06:00 06:00 11:04 WBC 16.7 H RBC 2.16 L Hgb 6.4 L Hct 19.2 L* MCHC RDW Plt Count Lymph % (Auto) [place] % (Auto) Lymph # (Auto) [place] # (Auto) Eos # (Auto) Baso # (Auto) Seg Neutrophils % Seg Neuts % (Manual) Lymphocytes % (Manual) Monocytes % (Manual) Basophils % (Manual) Nucleated RBC % Seg Neutrophils # Seg Neutrophils # Man Lymphocytes # (Manual) Monocytes # (Manual) Eosinophils # (Manual) Basophils # (Manual) PT INR APTT D-Dimer Heparin Anti-Xa Level ABG pH POC ABG pCO2 POC ABG pO2 ABG pO2 ABG HCO3 ABG O2 Saturation ABG Base Excess ABG Hemoglobin ABG Oxyhemoglobin ABG Sodium ABG Potassium ABG Chloride ABG Glucose Oxyhemoglobin Carboxyhemoglobin Sodium 136 L Potassium Chloride 95.8 L Carbon Dioxide BUN 72 H Creatinine 4.3 H Glucose POC Glucose Lactic Acid Calcium 6.7 L Phosphorus Magnesium Ferritin Direct Bilirubin AST ALT Alkaline Phosphatase Lactate Dehydrogenase Total Creatine Kinase C-Reactive Protein Total Protein Albumin Triglycerides 250 H Arterial Blood Glucose Arterial Blood Ionized Calcium Urine Creatinine Urine Chloride Vancomycin Trough Coronavirus (PCR) Crossmatch See Detail 07/02/20 07/02/20 07/02/20 04:44 06:00 11:33 WBC 14.6 H RBC 2.47 L Hgb 7.4 L Hct 21.8 L MCHC RDW Plt Count Lymph % (Auto) [place] % (Auto) Lymph # (Auto) [place] # (Auto) Eos # (Auto) Baso # (Auto) Seg Neutrophils % Seg Neuts % (Manual) Lymphocytes % (Manual) Monocytes % (Manual) Basophils % (Manual) Nucleated RBC % Seg Neutrophils # Seg Neutrophils # Man Lymphocytes # (Manual) Monocytes # (Manual) Eosinophils # (Manual) Basophils # (Manual) PT INR APTT D-Dimer Heparin Anti-Xa Level ABG pH 7.457 H POC ABG pCO2 POC ABG pO2 79.4 L ABG pO2 ABG HCO3 ABG O2 Saturation ABG Base Excess ABG Hemoglobin 8.5 L ABG Oxyhemoglobin ABG Sodium 128.4 L ABG Potassium ABG Chloride 97.0 L ABG Glucose 100 H Oxyhemoglobin Carboxyhemoglobin Sodium 133 L Potassium 5.2 H Chloride 93.3 L Carbon Dioxide BUN 66 H Creatinine 4.1 H Glucose 102 H POC Glucose Lactic Acid Calcium 7.2 L Phosphorus Magnesium Ferritin Direct Bilirubin AST ALT Alkaline Phosphatase Lactate Dehydrogenase Total Creatine Kinase C-Reactive Protein Total Protein Albumin Triglycerides Arterial Blood Glucose 100 H Arterial Blood Ionized Calcium 3.9 L Urine Creatinine Urine Chloride Vancomycin Trough Coronavirus (PCR) Crossmatch 07/02/20 07/03/20 07/03/20 11:33 03:54 09:15 WBC 16.6 H RBC 2.44 L Hgb 7.3 L Hct 21.4 L MCHC RDW Plt Count Lymph % (Auto) [place] % (Auto) Lymph # (Auto) [place] # (Auto) Eos # (Auto) Baso # (Auto) Seg Neutrophils % Seg Neuts % (Manual) Lymphocytes % (Manual) Monocytes % (Manual) Basophils % (Manual) Nucleated RBC % Seg Neutrophils # Seg Neutrophils # Man Lymphocytes # (Manual) Monocytes # (Manual) Eosinophils # (Manual) Basophils # (Manual) PT INR APTT D-Dimer Heparin Anti-Xa Level ABG pH POC ABG pCO2 POC ABG pO2 66.1 L ABG pO2 ABG HCO3 ABG O2 Saturation ABG Base Excess ABG Hemoglobin 8.0 L ABG Oxyhemoglobin ABG Sodium 124.6 L ABG Potassium 5.5 H ABG Chloride 96.0 L ABG Glucose 111 H Oxyhemoglobin Carboxyhemoglobin Sodium Potassium Chloride Carbon Dioxide BUN Creatinine Glucose POC Glucose Lactic Acid Calcium Phosphorus Magnesium Ferritin Direct Bilirubin 0.7 H AST 94 H ALT 60 H Alkaline Phosphatase Lactate Dehydrogenase Total Creatine Kinase C-Reactive Protein Total Protein 4.4 L Albumin 1.9 L Triglycerides Arterial Blood Glucose 111 H Arterial Blood Ionized Calcium 3.8 L Urine Creatinine Urine Chloride Vancomycin Trough Coronavirus (PCR) Crossmatch 07/03/20 07/03/20 07/03/20 09:15 10:10 14:50 WBC RBC Hgb Hct MCHC RDW Plt Count Lymph % (Auto) [place] % (Auto) Lymph # (Auto) [place] # (Auto) Eos # (Auto) Baso # (Auto) Seg Neutrophils % Seg Neuts % (Manual) Lymphocytes % (Manual) Monocytes % (Manual) Basophils % (Manual) Nucleated RBC % Seg Neutrophils # Seg Neutrophils # Man Lymphocytes # (Manual) Monocytes # (Manual) Eosinophils # (Manual) Basophils # (Manual) PT INR APTT D-Dimer 6608.00 H Heparin Anti-Xa Level ABG pH POC ABG pCO2 POC ABG pO2 ABG pO2 ABG HCO3 ABG O2 Saturation ABG Base Excess ABG Hemoglobin ABG Oxyhemoglobin ABG Sodium ABG Potassium ABG Chloride ABG Glucose Oxyhemoglobin Carboxyhemoglobin Sodium 133 L Potassium 6.2 H* Chloride 93.1 L Carbon Dioxide BUN 89 H Creatinine 5.1 H Glucose POC Glucose Lactic Acid Calcium 7.0 L Phosphorus Magnesium Ferritin Direct Bilirubin AST ALT Alkaline Phosphatase Lactate Dehydrogenase Total Creatine Kinase C-Reactive Protein Total Protein Albumin Triglycerides Arterial Blood Glucose Arterial Blood Ionized Calcium Urine Creatinine Urine Chloride Vancomycin Trough Coronavirus (PCR) Positive A Crossmatch 07/03/20 07/03/20 07/03/20 14:50 14:50 14:50 WBC RBC Hgb Hct MCHC RDW Plt Count Lymph % (Auto) [place] % (Auto) Lymph # (Auto) [place] # (Auto) Eos # (Auto) Baso # (Auto) Seg Neutrophils % Seg Neuts % (Manual) Lymphocytes % (Manual) Monocytes % (Manual) Basophils % (Manual) Nucleated RBC % Seg Neutrophils # Seg Neutrophils # Man Lymphocytes # (Manual) Monocytes # (Manual) Eosinophils # (Manual) Basophils # (Manual) PT INR APTT D-Dimer Heparin Anti-Xa Level ABG pH POC ABG pCO2 POC ABG pO2 ABG pO2 ABG HCO3 ABG O2 Saturation ABG Base Excess ABG Hemoglobin ABG Oxyhemoglobin ABG Sodium ABG Potassium ABG Chloride ABG Glucose Oxyhemoglobin Carboxyhemoglobin Sodium Potassium Chloride Carbon Dioxide BUN Creatinine Glucose POC Glucose Lactic Acid < 0.20 L Calcium Phosphorus Magnesium Ferritin 1171.0 H Direct Bilirubin AST ALT Alkaline Phosphatase Lactate Dehydrogenase 525 H Total Creatine Kinase C-Reactive Protein 31.50 H Total Protein Albumin Triglycerides Arterial Blood Glucose Arterial Blood Ionized Calcium Urine Creatinine Urine Chloride Vancomycin Trough Coronavirus (PCR) Crossmatch 07/03/20 07/04/20 07/04/20 16:47 05:20 05:20 WBC 11.8 H RBC 2.32 L Hgb 6.7 L Hct 20.8 L MCHC RDW Plt Count Lymph % (Auto) 2.6 L [place] % (Auto) Lymph # (Auto) 0.3 L [place] # (Auto) Eos # (Auto) Baso # (Auto) Seg Neutrophils % Seg Neuts % (Manual) Lymphocytes % (Manual) Monocytes % (Manual) Basophils % (Manual) Nucleated RBC % Seg Neutrophils # 11.0 H Seg Neutrophils # Man Lymphocytes # (Manual) Monocytes # (Manual) Eosinophils # (Manual) Basophils # (Manual) PT INR APTT D-Dimer Heparin Anti-Xa Level ABG pH POC ABG pCO2 POC ABG pO2 ABG pO2 ABG HCO3 ABG O2 Saturation ABG Base Excess ABG Hemoglobin ABG Oxyhemoglobin ABG Sodium ABG Potassium ABG Chloride ABG Glucose Oxyhemoglobin Carboxyhemoglobin Sodium Potassium 6.0 H Chloride 97.8 L Carbon Dioxide BUN 75 H Creatinine 4.5 H Glucose 121 H POC Glucose 107 H Lactic Acid Calcium 7.9 L Phosphorus Magnesium Ferritin Direct Bilirubin AST ALT Alkaline Phosphatase Lactate Dehydrogenase Total Creatine Kinase C-Reactive Protein Total Protein Albumin Triglycerides Arterial Blood Glucose Arterial Blood Ionized Calcium Urine Creatinine Urine Chloride Vancomycin Trough Coronavirus (PCR) Crossmatch 07/04/20 07/04/20 07/04/20 05:20 05:50 09:25 WBC RBC Hgb Hct MCHC RDW Plt Count Lymph % (Auto) [place] % (Auto) Lymph # (Auto) [place] # (Auto) Eos # (Auto) Baso # (Auto) Seg Neutrophils % Seg Neuts % (Manual) Lymphocytes % (Manual) Monocytes % (Manual) Basophils % (Manual) Nucleated RBC % Seg Neutrophils # Seg Neutrophils # Man Lymphocytes # (Manual) Monocytes # (Manual) Eosinophils # (Manual) Basophils # (Manual) PT INR APTT D-Dimer Heparin Anti-Xa Level ABG pH 7.324 L POC ABG pCO2 POC ABG pO2 ABG pO2 98.9 H ABG HCO3 26.8 H ABG O2 Saturation ABG Base Excess ABG Hemoglobin < 5.1 L ABG Oxyhemoglobin ABG Sodium ABG Potassium ABG Chloride ABG Glucose Oxyhemoglobin Carboxyhemoglobin Sodium Potassium Chloride Carbon Dioxide BUN Creatinine Glucose POC Glucose 114 H Lactic Acid Calcium Phosphorus Magnesium Ferritin Direct Bilirubin AST ALT Alkaline Phosphatase Lactate Dehydrogenase Total Creatine Kinase C-Reactive Protein Total Protein Albumin Triglycerides Arterial Blood Glucose Arterial Blood Ionized Calcium Urine Creatinine Urine Chloride Vancomycin Trough Coronavirus (PCR) Crossmatch See Detail 07/04/20 07/04/20 07/04/20 12:33 17:41 23:04 WBC RBC Hgb Hct MCHC RDW Plt Count Lymph % (Auto) [place] % (Auto) Lymph # (Auto) [place] # (Auto) Eos # (Auto) Baso # (Auto) Seg Neutrophils % Seg Neuts % (Manual) Lymphocytes % (Manual) Monocytes % (Manual) Basophils % (Manual) Nucleated RBC % Seg Neutrophils # Seg Neutrophils # Man Lymphocytes # (Manual) Monocytes # (Manual) Eosinophils # (Manual) Basophils # (Manual) PT INR APTT D-Dimer Heparin Anti-Xa Level ABG pH POC ABG pCO2 POC ABG pO2 ABG pO2 ABG HCO3 ABG O2 Saturation ABG Base Excess ABG Hemoglobin ABG Oxyhemoglobin ABG Sodium ABG Potassium ABG Chloride ABG Glucose Oxyhemoglobin Carboxyhemoglobin Sodium Potassium Chloride Carbon Dioxide BUN Creatinine Glucose POC Glucose 119 H 109 H 116 H Lactic Acid Calcium Phosphorus Magnesium Ferritin Direct Bilirubin AST ALT Alkaline Phosphatase Lactate Dehydrogenase Total Creatine Kinase C-Reactive Protein Total Protein Albumin Triglycerides Arterial Blood Glucose Arterial Blood Ionized Calcium Urine Creatinine Urine Chloride Vancomycin Trough Coronavirus (PCR) Crossmatch 07/05/20 07/05/20 07/05/20 04:30 08:21 08:21 WBC RBC 2.77 L Hgb 7.9 L Hct 23.9 L MCHC RDW 16.7 H Plt Count Lymph % (Auto) 7.5 L [place] % (Auto) Lymph # (Auto) 0.7 L [place] # (Auto) Eos # (Auto) Baso # (Auto) Seg Neutrophils % 85.8 H Seg Neuts % (Manual) Lymphocytes % (Manual) Monocytes % (Manual) Basophils % (Manual) Nucleated RBC % Seg Neutrophils # 7.8 H Seg Neutrophils # Man Lymphocytes # (Manual) Monocytes # (Manual) Eosinophils # (Manual) Basophils # (Manual) PT INR APTT D-Dimer Heparin Anti-Xa Level ABG pH 7.295 L POC ABG pCO2 POC ABG pO2 ABG pO2 151.9 H ABG HCO3 26.8 H ABG O2 Saturation ABG Base Excess ABG Hemoglobin 7.3 L ABG Oxyhemoglobin ABG Sodium ABG Potassium ABG Chloride ABG Glucose Oxyhemoglobin Carboxyhemoglobin Sodium Potassium Chloride Carbon Dioxide BUN Creatinine Glucose POC Glucose Lactic Acid Calcium Phosphorus Magnesium Ferritin Direct Bilirubin AST ALT Alkaline Phosphatase Lactate Dehydrogenase Total Creatine Kinase C-Reactive Protein Total Protein Albumin Triglycerides 258 H Arterial Blood Glucose Arterial Blood Ionized Calcium Urine Creatinine Urine Chloride Vancomycin Trough Coronavirus (PCR) Crossmatch 07/05/20 07/05/20 07/06/20 08:21 12:12 04:29 WBC RBC Hgb Hct MCHC RDW Plt Count Lymph % (Auto) [place] % (Auto) Lymph # (Auto) [place] # (Auto) Eos # (Auto) Baso # (Auto) Seg Neutrophils % Seg Neuts % (Manual) Lymphocytes % (Manual) Monocytes % (Manual) Basophils % (Manual) Nucleated RBC % Seg Neutrophils # Seg Neutrophils # Man Lymphocytes # (Manual) Monocytes # (Manual) Eosinophils # (Manual) Basophils # (Manual) PT INR APTT D-Dimer Heparin Anti-Xa Level ABG pH 7.291 L POC ABG pCO2 51.3 H POC ABG pO2 ABG pO2 ABG HCO3 ABG O2 Saturation ABG Base Excess ABG Hemoglobin 8.5 L ABG Oxyhemoglobin ABG Sodium 129.6 L ABG Potassium 4.8 H ABG Chloride 96.0 L ABG Glucose Oxyhemoglobin Carboxyhemoglobin Sodium 133 L Potassium 5.6 H Chloride 94.4 L Carbon Dioxide BUN 80 H Creatinine 4.2 H Glucose 114 H POC Glucose 106 H Lactic Acid Calcium 7.6 L Phosphorus Magnesium Ferritin Direct Bilirubin 0.5 H AST 75 H ALT 86 H Alkaline Phosphatase Lactate Dehydrogenase Total Creatine Kinase C-Reactive Protein Total Protein 5.6 L D Albumin 1.9 L Triglycerides Arterial Blood Glucose Arterial Blood Ionized Calcium 4.2 L Urine Creatinine Urine Chloride Vancomycin Trough Coronavirus (PCR) Crossmatch 07/06/20 07/06/20 07/06/20 11:35 11:35 12:16 WBC RBC 2.54 L Hgb 7.5 L Hct 21.5 L MCHC 35 H RDW 15.7 H Plt Count Lymph % (Auto) [place] % (Auto) Lymph # (Auto) [place] # (Auto) Eos # (Auto) Baso # (Auto) Seg Neutrophils % Seg Neuts % (Manual) Lymphocytes % (Manual) Monocytes % (Manual) Basophils % (Manual) Nucleated RBC % Seg Neutrophils # Seg Neutrophils # Man Lymphocytes # (Manual) Monocytes # (Manual) Eosinophils # (Manual) Basophils # (Manual) PT INR APTT D-Dimer Heparin Anti-Xa Level ABG pH POC ABG pCO2 POC ABG pO2 ABG pO2 ABG HCO3 ABG O2 Saturation ABG Base Excess ABG Hemoglobin ABG Oxyhemoglobin ABG Sodium ABG Potassium ABG Chloride ABG Glucose Oxyhemoglobin Carboxyhemoglobin Sodium 130 L Potassium Chloride 92.2 L Carbon Dioxide 19 L D BUN 107 H Creatinine 5.1 H Glucose 106 H POC Glucose 106 H Lactic Acid Calcium 7.5 L Phosphorus Magnesium Ferritin Direct Bilirubin AST ALT Alkaline Phosphatase Lactate Dehydrogenase Total Creatine Kinase C-Reactive Protein Total Protein Albumin Triglycerides Arterial Blood Glucose Arterial Blood Ionized Calcium Urine Creatinine Urine Chloride Vancomycin Trough Coronavirus (PCR) Crossmatch 07/06/20 07/06/20 07/06/20 17:01 21:56 23:41 WBC RBC Hgb Hct MCHC RDW Plt Count Lymph % (Auto) [place] % (Auto) Lymph # (Auto) [place] # (Auto) Eos # (Auto) Baso # (Auto) Seg Neutrophils % Seg Neuts % (Manual) Lymphocytes % (Manual) Monocytes % (Manual) Basophils % (Manual) Nucleated RBC % Seg Neutrophils # Seg Neutrophils # Man Lymphocytes # (Manual) Monocytes # (Manual) Eosinophils # (Manual) Basophils # (Manual) PT INR APTT D-Dimer Heparin Anti-Xa Level ABG pH POC ABG pCO2 POC ABG pO2 ABG pO2 ABG HCO3 ABG O2 Saturation ABG Base Excess ABG Hemoglobin ABG Oxyhemoglobin ABG Sodium ABG Potassium ABG Chloride ABG Glucose Oxyhemoglobin Carboxyhemoglobin Sodium 135 L Potassium 5.1 H Chloride Carbon Dioxide BUN 73 H Creatinine 4.0 H Glucose 112 H POC Glucose 109 H 111 H Lactic Acid Calcium 7.8 L Phosphorus Magnesium Ferritin Direct Bilirubin AST ALT Alkaline Phosphatase Lactate Dehydrogenase Total Creatine Kinase C-Reactive Protein Total Protein Albumin Triglycerides Arterial Blood Glucose Arterial Blood Ionized Calcium Urine Creatinine Urine Chloride Vancomycin Trough Coronavirus (PCR) Crossmatch 07/07/20 07/07/20 07/07/20 04:18 05:04 05:29 WBC RBC 2.46 L Hgb 7.6 L Hct 21.5 L MCHC 35 H RDW 16.5 H Plt Count Lymph % (Auto) [place] % (Auto) Lymph # (Auto) [place] # (Auto) Eos # (Auto) Baso # (Auto) Seg Neutrophils % Seg Neuts % (Manual) 82.0 H Lymphocytes % (Manual) Monocytes % (Manual) Basophils % (Manual) Nucleated RBC % 1.0 H Seg Neutrophils # Seg Neutrophils # Man Lymphocytes # (Manual) 1.1 L Monocytes # (Manual) Eosinophils # (Manual) Basophils # (Manual) PT INR APTT D-Dimer Heparin Anti-Xa Level ABG pH POC ABG pCO2 POC ABG pO2 79.6 L ABG pO2 ABG HCO3 ABG O2 Saturation ABG Base Excess ABG Hemoglobin 8.2 L ABG Oxyhemoglobin ABG Sodium 133.3 L ABG Potassium 4.7 H ABG Chloride ABG Glucose 135 H Oxyhemoglobin Carboxyhemoglobin Sodium Potassium Chloride Carbon Dioxide BUN Creatinine Glucose POC Glucose 112 H Lactic Acid Calcium Phosphorus Magnesium Ferritin Direct Bilirubin AST ALT Alkaline Phosphatase Lactate Dehydrogenase Total Creatine Kinase C-Reactive Protein Total Protein Albumin Triglycerides Arterial Blood Glucose 135 H Arterial Blood Ionized Calcium 4.5 L Urine Creatinine Urine Chloride Vancomycin Trough Coronavirus (PCR) Crossmatch 07/07/20 07/07/20 07/07/20 10:17 12:18 17:43 WBC RBC Hgb Hct MCHC RDW Plt Count Lymph % (Auto) [place] % (Auto) Lymph # (Auto) [place] # (Auto) Eos # (Auto) Baso # (Auto) Seg Neutrophils % Seg Neuts % (Manual) Lymphocytes % (Manual) Monocytes % (Manual) Basophils % (Manual) Nucleated RBC % Seg Neutrophils # Seg Neutrophils # Man Lymphocytes # (Manual) Monocytes # (Manual) Eosinophils # (Manual) Basophils # (Manual) PT INR APTT D-Dimer Heparin Anti-Xa Level ABG pH POC ABG pCO2 POC ABG pO2 ABG pO2 ABG HCO3 ABG O2 Saturation ABG Base Excess ABG Hemoglobin ABG Oxyhemoglobin ABG Sodium ABG Potassium ABG Chloride ABG Glucose Oxyhemoglobin Carboxyhemoglobin Sodium 136 L Potassium Chloride 96.8 L Carbon Dioxide BUN 82 H Creatinine 4.3 H Glucose 129 H POC Glucose 108 H 116 H Lactic Acid Calcium 7.8 L Phosphorus Magnesium Ferritin Direct Bilirubin AST ALT Alkaline Phosphatase Lactate Dehydrogenase Total Creatine Kinase C-Reactive Protein Total Protein Albumin Triglycerides Arterial Blood Glucose Arterial Blood Ionized Calcium Urine Creatinine Urine Chloride Vancomycin Trough Coronavirus (PCR) Crossmatch 07/07/20 07/08/20 07/08/20 23:31 04:00 04:00 WBC RBC 2.52 L Hgb 7.3 L Hct 22.2 L MCHC RDW 16.6 H Plt Count Lymph % (Auto) 11.5 L [place] % (Auto) Lymph # (Auto) [place] # (Auto) Eos # (Auto) Baso # (Auto) Seg Neutrophils % 78.2 H Seg Neuts % (Manual) Lymphocytes % (Manual) Monocytes % (Manual) Basophils % (Manual) Nucleated RBC % Seg Neutrophils # 8.0 H Seg Neutrophils # Man Lymphocytes # (Manual) Monocytes # (Manual) Eosinophils # (Manual) Basophils # (Manual) PT INR APTT D-Dimer Heparin Anti-Xa Level ABG pH POC ABG pCO2 POC ABG pO2 ABG pO2 ABG HCO3 ABG O2 Saturation ABG Base Excess ABG Hemoglobin ABG Oxyhemoglobin ABG Sodium ABG Potassium ABG Chloride ABG Glucose Oxyhemoglobin Carboxyhemoglobin Sodium 132 L Potassium 5.4 H Chloride 92.5 L Carbon Dioxide BUN 98 H Creatinine 4.9 H Glucose 105 H POC Glucose 117 H Lactic Acid Calcium 7.9 L Phosphorus Magnesium Ferritin Direct Bilirubin AST ALT Alkaline Phosphatase Lactate Dehydrogenase Total Creatine Kinase C-Reactive Protein Total Protein Albumin Triglycerides Arterial Blood Glucose Arterial Blood Ionized Calcium Urine Creatinine Urine Chloride Vancomycin Trough Coronavirus (PCR) Crossmatch 07/08/20 07/08/20 07/08/20 04:09 11:34 17:05 WBC RBC Hgb Hct MCHC RDW Plt Count Lymph % (Auto) [place] % (Auto) Lymph # (Auto) [place] # (Auto) Eos # (Auto) Baso # (Auto) Seg Neutrophils % Seg Neuts % (Manual) Lymphocytes % (Manual) Monocytes % (Manual) Basophils % (Manual) Nucleated RBC % Seg Neutrophils # Seg Neutrophils # Man Lymphocytes # (Manual) Monocytes # (Manual) Eosinophils # (Manual) Basophils # (Manual) PT INR APTT D-Dimer Heparin Anti-Xa Level ABG pH 7.220 L POC ABG pCO2 60.5 H POC ABG pO2 ABG pO2 ABG HCO3 ABG O2 Saturation ABG Base Excess ABG Hemoglobin 8.2 L ABG Oxyhemoglobin ABG Sodium 131.3 L ABG Potassium 5.2 H ABG Chloride ABG Glucose 103 H Oxyhemoglobin Carboxyhemoglobin Sodium Potassium Chloride Carbon Dioxide BUN Creatinine Glucose POC Glucose 140 H 125 H Lactic Acid Calcium Phosphorus Magnesium Ferritin Direct Bilirubin AST ALT Alkaline Phosphatase Lactate Dehydrogenase Total Creatine Kinase C-Reactive Protein Total Protein Albumin Triglycerides Arterial Blood Glucose 103 H Arterial Blood Ionized Calcium 4.3 L Urine Creatinine Urine Chloride Vancomycin Trough Coronavirus (PCR) Crossmatch 07/08/20 07/08/20 07/09/20 20:21 23:43 05:10 WBC RBC Hgb Hct MCHC RDW Plt Count Lymph % (Auto) [place] % (Auto) Lymph # (Auto) [place] # (Auto) Eos # (Auto) Baso # (Auto) Seg Neutrophils % Seg Neuts % (Manual) Lymphocytes % (Manual) Monocytes % (Manual) Basophils % (Manual) Nucleated RBC % Seg Neutrophils # Seg Neutrophils # Man Lymphocytes # (Manual) Monocytes # (Manual) Eosinophils # (Manual) Basophils # (Manual) PT INR APTT D-Dimer Heparin Anti-Xa Level ABG pH 7.20 L POC ABG pCO2 69.8 H POC ABG pO2 138.9 H 76.1 L ABG pO2 ABG HCO3 ABG O2 Saturation ABG Base Excess ABG Hemoglobin 11.9 L 8.4 L ABG Oxyhemoglobin ABG Sodium 133.1 L 131.2 L ABG Potassium 5.0 H 4.7 H ABG Chloride ABG Glucose 120 H 102 H Oxyhemoglobin Carboxyhemoglobin Sodium Potassium Chloride Carbon Dioxide BUN Creatinine Glucose POC Glucose 118 H Lactic Acid Calcium Phosphorus Magnesium Ferritin Direct Bilirubin AST ALT Alkaline Phosphatase Lactate Dehydrogenase Total Creatine Kinase C-Reactive Protein Total Protein Albumin Triglycerides Arterial Blood Glucose 120 H 102 H Arterial Blood Ionized Calcium 4.4 L 4.3 L Urine Creatinine Urine Chloride Vancomycin Trough Coronavirus (PCR) Crossmatch 07/09/20 07/09/20 07/09/20 11:51 17:04 21:00 WBC RBC Hgb Hct MCHC RDW Plt Count Lymph % (Auto) [place] % (Auto) Lymph # (Auto) [place] # (Auto) Eos # (Auto) Baso # (Auto) Seg Neutrophils % Seg Neuts % (Manual) Lymphocytes % (Manual) Monocytes % (Manual) Basophils % (Manual) Nucleated RBC % Seg Neutrophils # Seg Neutrophils # Man Lymphocytes # (Manual) Monocytes # (Manual) Eosinophils # (Manual) Basophils # (Manual) PT INR APTT D-Dimer Heparin Anti-Xa Level ABG pH POC ABG pCO2 POC ABG pO2 114.2 H ABG pO2 ABG HCO3 ABG O2 Saturation ABG Base Excess ABG Hemoglobin 7.8 L ABG Oxyhemoglobin ABG Sodium 132.3 L ABG Potassium 4.6 H ABG Chloride ABG Glucose Oxyhemoglobin Carboxyhemoglobin Sodium Potassium Chloride Carbon Dioxide BUN Creatinine Glucose POC Glucose 113 H 111 H Lactic Acid Calcium Phosphorus Magnesium Ferritin Direct Bilirubin AST ALT Alkaline Phosphatase Lactate Dehydrogenase Total Creatine Kinase C-Reactive Protein Total Protein Albumin Triglycerides Arterial Blood Glucose Arterial Blood Ionized Calcium 4.4 L Urine Creatinine Urine Chloride Vancomycin Trough Coronavirus (PCR) Crossmatch 07/10/20 07/10/20 07/10/20 03:49 03:55 03:55 WBC 18.1 H RBC 2.37 L Hgb 6.8 L Hct 20.7 L MCHC RDW 16.9 H Plt Count Lymph % (Auto) [place] % (Auto) Lymph # (Auto) [place] # (Auto) Eos # (Auto) Baso # (Auto) Seg Neutrophils % Seg Neuts % (Manual) 79.0 H Lymphocytes % (Manual) 10.0 L Monocytes % (Manual) Basophils % (Manual) Nucleated RBC % 1.0 H Seg Neutrophils # Seg Neutrophils # Man 14.3 H Lymphocytes # (Manual) Monocytes # (Manual) Eosinophils # (Manual) 0.7 H Basophils # (Manual) PT INR APTT D-Dimer Heparin Anti-Xa Level ABG pH POC ABG pCO2 POC ABG pO2 ABG pO2 ABG HCO3 ABG O2 Saturation ABG Base Excess ABG Hemoglobin 7.7 L ABG Oxyhemoglobin ABG Sodium 130.3 L ABG Potassium 4.6 H ABG Chloride ABG Glucose Oxyhemoglobin Carboxyhemoglobin Sodium 136 L Potassium Chloride 96.0 L Carbon Dioxide BUN 76 H Creatinine 3.6 H Glucose POC Glucose Lactic Acid Calcium 7.4 L Phosphorus Magnesium Ferritin Direct Bilirubin AST ALT Alkaline Phosphatase Lactate Dehydrogenase Total Creatine Kinase C-Reactive Protein Total Protein Albumin Triglycerides Arterial Blood Glucose Arterial Blood Ionized Calcium 4.2 L Urine Creatinine Urine Chloride Vancomycin Trough Coronavirus (PCR) Crossmatch 07/10/20 07/11/20 07/11/20 13:24 04:08 06:52 WBC 26.0 H RBC 2.91 L Hgb 8.2 L Hct 24.8 L MCHC RDW 17.2 H Plt Count Lymph % (Auto) [place] % (Auto) Lymph # (Auto) [place] # (Auto) Eos # (Auto) Baso # (Auto) Seg Neutrophils % Seg Neuts % (Manual) Lymphocytes % (Manual) 1.0 L Monocytes % (Manual) 11.0 H Basophils % (Manual) Nucleated RBC % Seg Neutrophils # Seg Neutrophils # Man 16.9 H Lymphocytes # (Manual) 0.3 L Monocytes # (Manual) 2.9 H Eosinophils # (Manual) 1.0 H Basophils # (Manual) PT INR APTT D-Dimer Heparin Anti-Xa Level ABG pH POC ABG pCO2 POC ABG pO2 ABG pO2 ABG HCO3 ABG O2 Saturation ABG Base Excess ABG Hemoglobin 8.5 L ABG Oxyhemoglobin ABG Sodium 130.6 L ABG Potassium 4.9 H ABG Chloride ABG Glucose 105 H Oxyhemoglobin Carboxyhemoglobin Sodium Potassium Chloride Carbon Dioxide BUN Creatinine Glucose POC Glucose Lactic Acid Calcium Phosphorus Magnesium Ferritin Direct Bilirubin AST ALT Alkaline Phosphatase Lactate Dehydrogenase Total Creatine Kinase C-Reactive Protein Total Protein Albumin Triglycerides Arterial Blood Glucose 105 H Arterial Blood Ionized Calcium 4.1 L Urine Creatinine Urine Chloride Vancomycin Trough Coronavirus (PCR) Crossmatch See Detail 07/11/20 07/11/20 07/11/20 06:52 08:48 11:39 WBC RBC Hgb Hct MCHC RDW Plt Count Lymph % (Auto) [place] % (Auto) Lymph # (Auto) [place] # (Auto) Eos # (Auto) Baso # (Auto) Seg Neutrophils % Seg Neuts % (Manual) Lymphocytes % (Manual) Monocytes % (Manual) Basophils % (Manual) Nucleated RBC % Seg Neutrophils # Seg Neutrophils # Man Lymphocytes # (Manual) Monocytes # (Manual) Eosinophils # (Manual) Basophils # (Manual) PT INR APTT D-Dimer Heparin Anti-Xa Level ABG pH POC ABG pCO2 POC ABG pO2 ABG pO2 ABG HCO3 ABG O2 Saturation ABG Base Excess ABG Hemoglobin ABG Oxyhemoglobin ABG Sodium ABG Potassium ABG Chloride ABG Glucose Oxyhemoglobin Carboxyhemoglobin Sodium 133 L 134 L Potassium 5.3 H Chloride 93.5 L 94.8 L Carbon Dioxide BUN 101 H 99 H Creatinine 4.5 H 4.6 H Glucose 102 H POC Glucose 116 H Lactic Acid Calcium 7.8 L 7.6 L Phosphorus Magnesium Ferritin Direct Bilirubin AST ALT Alkaline Phosphatase Lactate Dehydrogenase Total Creatine Kinase C-Reactive Protein Total Protein Albumin Triglycerides Arterial Blood Glucose Arterial Blood Ionized Calcium Urine Creatinine Urine Chloride Vancomycin Trough Coronavirus (PCR) Crossmatch 07/11/20 07/12/20 07/12/20 17:23 00:04 03:20 WBC RBC Hgb Hct MCHC RDW Plt Count Lymph % (Auto) [place] % (Auto) Lymph # (Auto) [place] # (Auto) Eos # (Auto) Baso # (Auto) Seg Neutrophils % Seg Neuts % (Manual) Lymphocytes % (Manual) Monocytes % (Manual) Basophils % (Manual) Nucleated RBC % Seg Neutrophils # Seg Neutrophils # Man Lymphocytes # (Manual) Monocytes # (Manual) Eosinophils # (Manual) Basophils # (Manual) PT INR APTT D-Dimer Heparin Anti-Xa Level ABG pH POC ABG pCO2 49.1 H POC ABG pO2 130.3 H ABG pO2 ABG HCO3 ABG O2 Saturation ABG Base Excess ABG Hemoglobin 8.7 L ABG Oxyhemoglobin ABG Sodium 135.2 L ABG Potassium 4.7 H ABG Chloride ABG Glucose 128 H Oxyhemoglobin Carboxyhemoglobin Sodium Potassium Chloride Carbon Dioxide BUN Creatinine Glucose POC Glucose 142 H 113 H Lactic Acid Calcium Phosphorus Magnesium Ferritin Direct Bilirubin AST ALT Alkaline Phosphatase Lactate Dehydrogenase Total Creatine Kinase C-Reactive Protein Total Protein Albumin Triglycerides Arterial Blood Glucose 128 H Arterial Blood Ionized Calcium 4.4 L Urine Creatinine Urine Chloride Vancomycin Trough Coronavirus (PCR) Crossmatch 07/12/20 07/12/20 07/12/20 03:40 03:40 04:00 WBC 24.3 H RBC 2.83 L Hgb 8.0 L Hct 24.9 L MCHC RDW 17.7 H Plt Count Lymph % (Auto) 5.6 L [place] % (Auto) 7.4 H Lymph # (Auto) [place] # (Auto) 1.8 H Eos # (Auto) 0.7 H Baso # (Auto) Seg Neutrophils % 83.9 H Seg Neuts % (Manual) Lymphocytes % (Manual) Monocytes % (Manual) Basophils % (Manual) Nucleated RBC % Seg Neutrophils # 20.4 H Seg Neutrophils # Man Lymphocytes # (Manual) Monocytes # (Manual) Eosinophils # (Manual) Basophils # (Manual) PT INR APTT D-Dimer Heparin Anti-Xa Level ABG pH POC ABG pCO2 POC ABG pO2 ABG pO2 ABG HCO3 ABG O2 Saturation ABG Base Excess ABG Hemoglobin ABG Oxyhemoglobin ABG Sodium ABG Potassium ABG Chloride ABG Glucose Oxyhemoglobin Carboxyhemoglobin Sodium 134 L Potassium Chloride 95.5 L Carbon Dioxide BUN 79 H Creatinine 3.7 H Glucose 127 H POC Glucose Lactic Acid Calcium 7.8 L Phosphorus Magnesium Ferritin Direct Bilirubin AST ALT Alkaline Phosphatase Lactate Dehydrogenase Total Creatine Kinase C-Reactive Protein Total Protein Albumin Triglycerides 246 H Arterial Blood Glucose Arterial Blood Ionized Calcium Urine Creatinine Urine Chloride Vancomycin Trough Coronavirus (PCR) Crossmatch 07/12/20 07/12/20 07/12/20 05:48 11:50 17:29 WBC RBC Hgb Hct MCHC RDW Plt Count Lymph % (Auto) [place] % (Auto) Lymph # (Auto) [place] # (Auto) Eos # (Auto) Baso # (Auto) Seg Neutrophils % Seg Neuts % (Manual) Lymphocytes % (Manual) Monocytes % (Manual) Basophils % (Manual) Nucleated RBC % Seg Neutrophils # Seg Neutrophils # Man Lymphocytes # (Manual) Monocytes # (Manual) Eosinophils # (Manual) Basophils # (Manual) PT INR APTT D-Dimer Heparin Anti-Xa Level ABG pH POC ABG pCO2 POC ABG pO2 ABG pO2 ABG HCO3 ABG O2 Saturation ABG Base Excess ABG Hemoglobin ABG Oxyhemoglobin ABG Sodium ABG Potassium ABG Chloride ABG Glucose Oxyhemoglobin Carboxyhemoglobin Sodium Potassium Chloride Carbon Dioxide BUN Creatinine Glucose POC Glucose 136 H 113 H 110 H Lactic Acid Calcium Phosphorus Magnesium Ferritin Direct Bilirubin AST ALT Alkaline Phosphatase Lactate Dehydrogenase Total Creatine Kinase C-Reactive Protein Total Protein Albumin Triglycerides Arterial Blood Glucose Arterial Blood Ionized Calcium Urine Creatinine Urine Chloride Vancomycin Trough Coronavirus (PCR) Crossmatch 07/12/20 07/13/20 07/13/20 23:43 03:11 06:59 WBC RBC Hgb Hct MCHC RDW Plt Count Lymph % (Auto) [place] % (Auto) Lymph # (Auto) [place] # (Auto) Eos # (Auto) Baso # (Auto) Seg Neutrophils % Seg Neuts % (Manual) Lymphocytes % (Manual) Monocytes % (Manual) Basophils % (Manual) Nucleated RBC % Seg Neutrophils # Seg Neutrophils # Man Lymphocytes # (Manual) Monocytes # (Manual) Eosinophils # (Manual) Basophils # (Manual) PT INR APTT D-Dimer Heparin Anti-Xa Level ABG pH POC ABG pCO2 49.0 H POC ABG pO2 69.6 L ABG pO2 ABG HCO3 ABG O2 Saturation ABG Base Excess ABG Hemoglobin 8.5 L ABG Oxyhemoglobin 90.5 L ABG Sodium 133.6 L ABG Potassium 5.1 H ABG Chloride ABG Glucose 104 H Oxyhemoglobin Carboxyhemoglobin Sodium 133 L Potassium 5.7 H Chloride 96.3 L Carbon Dioxide 20 L D BUN 102 H Creatinine 4.4 H Glucose 101 H POC Glucose 120 H Lactic Acid Calcium 7.9 L Phosphorus Magnesium Ferritin Direct Bilirubin AST 61 H ALT 85 H Alkaline Phosphatase 144 H Lactate Dehydrogenase Total Creatine Kinase C-Reactive Protein Total Protein 5.4 L Albumin 2.0 L Triglycerides Arterial Blood Glucose 104 H Arterial Blood Ionized Calcium 4.3 L Urine Creatinine Urine Chloride Vancomycin Trough Coronavirus (PCR) Crossmatch 07/13/20 07/13/20 07/13/20 08:48 12:14 15:12 WBC 27.5 H RBC 3.03 L Hgb 8.7 L Hct 27.0 L MCHC RDW 18.0 H Plt Count Lymph % (Auto) [place] % (Auto) Lymph # (Auto) [place] # (Auto) Eos # (Auto) Baso # (Auto) Seg Neutrophils % Seg Neuts % (Manual) Lymphocytes % (Manual) Monocytes % (Manual) Basophils % (Manual) Nucleated RBC % Seg Neutrophils # Seg Neutrophils # Man Lymphocytes # (Manual) Monocytes # (Manual) Eosinophils # (Manual) Basophils # (Manual) PT INR APTT D-Dimer Heparin Anti-Xa Level ABG pH POC ABG pCO2 POC ABG pO2 ABG pO2 ABG HCO3 ABG O2 Saturation ABG Base Excess ABG Hemoglobin ABG Oxyhemoglobin ABG Sodium ABG Potassium ABG Chloride ABG Glucose Oxyhemoglobin Carboxyhemoglobin Sodium Potassium 5.5 H Chloride Carbon Dioxide BUN 88 H Creatinine 3.8 H Glucose 133 H POC Glucose 134 H Lactic Acid Calcium 7.5 L Phosphorus Magnesium Ferritin Direct Bilirubin AST ALT Alkaline Phosphatase Lactate Dehydrogenase Total Creatine Kinase C-Reactive Protein Total Protein Albumin Triglycerides Arterial Blood Glucose Arterial Blood Ionized Calcium Urine Creatinine Urine Chloride Vancomycin Trough Coronavirus (PCR) Crossmatch 07/13/20 07/13/20 07/13/20 16:46 16:47 18:46 WBC RBC Hgb 7.4 L Hct 22.1 L MCHC RDW Plt Count Lymph % (Auto) [place] % (Auto) Lymph # (Auto) [place] # (Auto) Eos # (Auto) Baso # (Auto) Seg Neutrophils % Seg Neuts % (Manual) Lymphocytes % (Manual) Monocytes % (Manual) Basophils % (Manual) Nucleated RBC % Seg Neutrophils # Seg Neutrophils # Man Lymphocytes # (Manual) Monocytes # (Manual) Eosinophils # (Manual) Basophils # (Manual) PT INR APTT D-Dimer Heparin Anti-Xa Level ABG pH POC ABG pCO2 POC ABG pO2 ABG pO2 ABG HCO3 ABG O2 Saturation ABG Base Excess ABG Hemoglobin ABG Oxyhemoglobin ABG Sodium ABG Potassium ABG Chloride ABG Glucose Oxyhemoglobin Carboxyhemoglobin Sodium Potassium Chloride Carbon Dioxide BUN Creatinine Glucose POC Glucose 118 H Lactic Acid Calcium Phosphorus Magnesium Ferritin Direct Bilirubin AST ALT Alkaline Phosphatase Lactate Dehydrogenase Total Creatine Kinase C-Reactive Protein Total Protein Albumin Triglycerides Arterial Blood Glucose Arterial Blood Ionized Calcium Urine Creatinine Urine Chloride Vancomycin Trough Coronavirus (PCR) Crossmatch See Detail 07/13/20 07/14/20 07/14/20 23:34 04:25 12:21 WBC RBC Hgb Hct MCHC RDW Plt Count Lymph % (Auto) [place] % (Auto) Lymph # (Auto) [place] # (Auto) Eos # (Auto) Baso # (Auto) Seg Neutrophils % Seg Neuts % (Manual) Lymphocytes % (Manual) Monocytes % (Manual) Basophils % (Manual) Nucleated RBC % Seg Neutrophils # Seg Neutrophils # Man Lymphocytes # (Manual) Monocytes # (Manual) Eosinophils # (Manual) Basophils # (Manual) PT INR APTT D-Dimer Heparin Anti-Xa Level ABG pH POC ABG pCO2 POC ABG pO2 ABG pO2 ABG HCO3 ABG O2 Saturation ABG Base Excess ABG Hemoglobin 8.9 L ABG Oxyhemoglobin ABG Sodium 133.1 L ABG Potassium 4.7 H ABG Chloride ABG Glucose 113 H Oxyhemoglobin Carboxyhemoglobin Sodium Potassium Chloride Carbon Dioxide BUN Creatinine Glucose POC Glucose 109 H 109 H Lactic Acid Calcium Phosphorus Magnesium Ferritin Direct Bilirubin AST ALT Alkaline Phosphatase Lactate Dehydrogenase Total Creatine Kinase C-Reactive Protein Total Protein Albumin Triglycerides Arterial Blood Glucose 113 H Arterial Blood Ionized Calcium 4.4 L Urine Creatinine Urine Chloride Vancomycin Trough Coronavirus (PCR) Crossmatch 07/14/20 07/14/20 07/14/20 16:44 16:44 20:20 WBC 30.1 H RBC 2.60 L Hgb 7.4 L 5.6 L* Hct 23.0 L 18.1 L* MCHC RDW 18.0 H Plt Count Lymph % (Auto) [place] % (Auto) Lymph # (Auto) [place] # (Auto) Eos # (Auto) Baso # (Auto) Seg Neutrophils % Seg Neuts % (Manual) 78.0 H Lymphocytes % (Manual) 5.0 L Monocytes % (Manual) Basophils % (Manual) Nucleated RBC % Seg Neutrophils # Seg Neutrophils # Man 23.5 H Lymphocytes # (Manual) Monocytes # (Manual) 0.9 H Eosinophils # (Manual) Basophils # (Manual) PT 15.6 H INR 1.26 H APTT D-Dimer Heparin Anti-Xa Level ABG pH POC ABG pCO2 POC ABG pO2 ABG pO2 ABG HCO3 ABG O2 Saturation ABG Base Excess ABG Hemoglobin ABG Oxyhemoglobin ABG Sodium ABG Potassium ABG Chloride ABG Glucose Oxyhemoglobin Carboxyhemoglobin Sodium Potassium Chloride Carbon Dioxide BUN Creatinine Glucose POC Glucose Lactic Acid Calcium Phosphorus Magnesium Ferritin Direct Bilirubin AST ALT Alkaline Phosphatase Lactate Dehydrogenase Total Creatine Kinase C-Reactive Protein Total Protein Albumin Triglycerides Arterial Blood Glucose Arterial Blood Ionized Calcium Urine Creatinine Urine Chloride Vancomycin Trough Coronavirus (PCR) Crossmatch 07/14/20 07/14/20 07/15/20 21:19 23:45 04:13 WBC RBC Hgb Hct MCHC RDW Plt Count Lymph % (Auto) [place] % (Auto) Lymph # (Auto) [place] # (Auto) Eos # (Auto) Baso # (Auto) Seg Neutrophils % Seg Neuts % (Manual) Lymphocytes % (Manual) Monocytes % (Manual) Basophils % (Manual) Nucleated RBC % Seg Neutrophils # Seg Neutrophils # Man Lymphocytes # (Manual) Monocytes # (Manual) Eosinophils # (Manual) Basophils # (Manual) PT INR APTT D-Dimer Heparin Anti-Xa Level ABG pH POC ABG pCO2 POC ABG pO2 ABG pO2 ABG HCO3 ABG O2 Saturation ABG Base Excess ABG Hemoglobin 5.8 L 6.0 L ABG Oxyhemoglobin 93.8 L ABG Sodium 132.2 L 130.3 L ABG Potassium 5.5 H 5.8 H ABG Chloride ABG Glucose 118 H 122 H Oxyhemoglobin Carboxyhemoglobin Sodium Potassium Chloride Carbon Dioxide BUN Creatinine Glucose POC Glucose 126 H Lactic Acid Calcium Phosphorus Magnesium Ferritin Direct Bilirubin AST ALT Alkaline Phosphatase Lactate Dehydrogenase Total Creatine Kinase C-Reactive Protein Total Protein Albumin Triglycerides Arterial Blood Glucose 118 H 122 H Arterial Blood Ionized Calcium 4.3 L 4.2 L Urine Creatinine Urine Chloride Vancomycin Trough Coronavirus (PCR) Crossmatch 07/15/20 07/15/20 07/15/20 08:21 08:21 08:38 WBC 45.5 H* RBC 2.42 L Hgb 7.1 L Hct 21.5 L MCHC RDW 16.5 H Plt Count Lymph % (Auto) [place] % (Auto) Lymph # (Auto) [place] # (Auto) Eos # (Auto) Baso # (Auto) Seg Neutrophils % Seg Neuts % (Manual) 89.0 H Lymphocytes % (Manual) 7.0 L Monocytes % (Manual) Basophils % (Manual) Nucleated RBC % Seg Neutrophils # Seg Neutrophils # Man 40.5 H Lymphocytes # (Manual) Monocytes # (Manual) 1.8 H Eosinophils # (Manual) Basophils # (Manual) PT 17.6 H INR 1.46 H APTT D-Dimer Heparin Anti-Xa Level ABG pH POC ABG pCO2 POC ABG pO2 ABG pO2 ABG HCO3 ABG O2 Saturation ABG Base Excess ABG Hemoglobin ABG Oxyhemoglobin ABG Sodium ABG Potassium ABG Chloride ABG Glucose Oxyhemoglobin Carboxyhemoglobin Sodium 131 L Potassium 6.0 H Chloride 94.6 L Carbon Dioxide 20 L BUN 116 H Creatinine 4.6 H Glucose 123 H POC Glucose Lactic Acid Calcium 7.6 L Phosphorus Magnesium Ferritin Direct Bilirubin AST ALT Alkaline Phosphatase Lactate Dehydrogenase Total Creatine Kinase C-Reactive Protein Total Protein Albumin Triglycerides Arterial Blood Glucose Arterial Blood Ionized Calcium Urine Creatinine Urine Chloride Vancomycin Trough Coronavirus (PCR) Crossmatch 07/15/20 07/15/20 07/15/20 11:29 17:23 18:52 WBC RBC Hgb Hct MCHC RDW Plt Count Lymph % (Auto) [place] % (Auto) Lymph # (Auto) [place] # (Auto) Eos # (Auto) Baso # (Auto) Seg Neutrophils % Seg Neuts % (Manual) Lymphocytes % (Manual) Monocytes % (Manual) Basophils % (Manual) Nucleated RBC % Seg Neutrophils # Seg Neutrophils # Man Lymphocytes # (Manual) Monocytes # (Manual) Eosinophils # (Manual) Basophils # (Manual) PT INR APTT D-Dimer Heparin Anti-Xa Level ABG pH POC ABG pCO2 POC ABG pO2 ABG pO2 ABG HCO3 ABG O2 Saturation ABG Base Excess ABG Hemoglobin ABG Oxyhemoglobin ABG Sodium ABG Potassium ABG Chloride ABG Glucose Oxyhemoglobin Carboxyhemoglobin Sodium Potassium Chloride 97.9 L Carbon Dioxide BUN 78 H Creatinine 3.1 H Glucose 114 H POC Glucose 181 H 120 H Lactic Acid Calcium 7.3 L Phosphorus Magnesium Ferritin Direct Bilirubin AST ALT Alkaline Phosphatase Lactate Dehydrogenase Total Creatine Kinase C-Reactive Protein Total Protein Albumin Triglycerides Arterial Blood Glucose Arterial Blood Ionized Calcium Urine Creatinine Urine Chloride Vancomycin Trough Coronavirus (PCR) Crossmatch 07/15/20 07/16/20 07/16/20 18:52 01:10 03:38 WBC RBC Hgb 9.9 L 8.5 L Hct 29.8 L D 24.7 L MCHC RDW Plt Count Lymph % (Auto) [place] % (Auto) Lymph # (Auto) [place] # (Auto) Eos # (Auto) Baso # (Auto) Seg Neutrophils % Seg Neuts % (Manual) Lymphocytes % (Manual) Monocytes % (Manual) Basophils % (Manual) Nucleated RBC % Seg Neutrophils # Seg Neutrophils # Man Lymphocytes # (Manual) Monocytes # (Manual) Eosinophils # (Manual) Basophils # (Manual) PT INR APTT D-Dimer Heparin Anti-Xa Level ABG pH 7.314 L POC ABG pCO2 48.5 H POC ABG pO2 58.9 L ABG pO2 ABG HCO3 ABG O2 Saturation ABG Base Excess ABG Hemoglobin 8.7 L ABG Oxyhemoglobin 86.7 L ABG Sodium 132.7 L ABG Potassium 5.2 H ABG Chloride ABG Glucose 99 H Oxyhemoglobin Carboxyhemoglobin Sodium Potassium Chloride Carbon Dioxide BUN Creatinine Glucose POC Glucose Lactic Acid Calcium Phosphorus Magnesium Ferritin Direct Bilirubin AST ALT Alkaline Phosphatase Lactate Dehydrogenase Total Creatine Kinase C-Reactive Protein Total Protein Albumin Triglycerides Arterial Blood Glucose 99 H Arterial Blood Ionized Calcium 3.9 L Urine Creatinine Urine Chloride Vancomycin Trough Coronavirus (PCR) Crossmatch 07/16/20 07/16/20 07/16/20 04:28 04:28 07:29 WBC 48.9 H* RBC 2.86 L Hgb 8.6 L 7.9 L Hct 25.4 L 24.4 L MCHC RDW 15.6 H Plt Count Lymph % (Auto) [place] % (Auto) Lymph # (Auto) [place] # (Auto) Eos # (Auto) Baso # (Auto) Seg Neutrophils % Seg Neuts % (Manual) Lymphocytes % (Manual) Monocytes % (Manual) Basophils % (Manual) Nucleated RBC % Seg Neutrophils # Seg Neutrophils # Man Lymphocytes # (Manual) Monocytes # (Manual) Eosinophils # (Manual) Basophils # (Manual) PT INR APTT D-Dimer Heparin Anti-Xa Level ABG pH POC ABG pCO2 POC ABG pO2 ABG pO2 ABG HCO3 ABG O2 Saturation ABG Base Excess ABG Hemoglobin ABG Oxyhemoglobin ABG Sodium ABG Potassium ABG Chloride ABG Glucose Oxyhemoglobin Carboxyhemoglobin Sodium 136 L Potassium 5.4 H Chloride 95.0 L Carbon Dioxide BUN 85 H Creatinine 3.4 H Glucose 66 L POC Glucose Lactic Acid Calcium 6.8 L Phosphorus Magnesium Ferritin Direct Bilirubin AST ALT Alkaline Phosphatase Lactate Dehydrogenase Total Creatine Kinase C-Reactive Protein Total Protein Albumin Triglycerides Arterial Blood Glucose Arterial Blood Ionized Calcium Urine Creatinine Urine Chloride Vancomycin Trough Coronavirus (PCR) Crossmatch 07/16/20 07/16/20 07/16/20 11:52 18:06 18:08 WBC RBC Hgb 7.4 L Hct 22.5 L MCHC RDW Plt Count Lymph % (Auto) [place] % (Auto) Lymph # (Auto) [place] # (Auto) Eos # (Auto) Baso # (Auto) Seg Neutrophils % Seg Neuts % (Manual) Lymphocytes % (Manual) Monocytes % (Manual) Basophils % (Manual) Nucleated RBC % Seg Neutrophils # Seg Neutrophils # Man Lymphocytes # (Manual) Monocytes # (Manual) Eosinophils # (Manual) Basophils # (Manual) PT INR APTT D-Dimer Heparin Anti-Xa Level ABG pH POC ABG pCO2 POC ABG pO2 ABG pO2 ABG HCO3 ABG O2 Saturation ABG Base Excess ABG Hemoglobin ABG Oxyhemoglobin ABG Sodium ABG Potassium ABG Chloride ABG Glucose Oxyhemoglobin Carboxyhemoglobin Sodium Potassium Chloride Carbon Dioxide BUN Creatinine Glucose POC Glucose 124 H 108 H Lactic Acid Calcium Phosphorus Magnesium Ferritin Direct Bilirubin AST ALT Alkaline Phosphatase Lactate Dehydrogenase Total Creatine Kinase C-Reactive Protein Total Protein Albumin Triglycerides Arterial Blood Glucose Arterial Blood Ionized Calcium Urine Creatinine Urine Chloride Vancomycin Trough Coronavirus (PCR) Crossmatch 07/17/20 07/17/20 07/17/20 03:27 15:25 15:25 WBC 46.2 H* RBC 2.05 L Hgb 6.1 L Hct 18.4 L* MCHC RDW 15.6 H Plt Count Lymph % (Auto) [place] % (Auto) Lymph # (Auto) [place] # (Auto) Eos # (Auto) Baso # (Auto) Seg Neutrophils % Seg Neuts % (Manual) 87.0 H Lymphocytes % (Manual) 3.0 L Monocytes % (Manual) Basophils % (Manual) Nucleated RBC % Seg Neutrophils # Seg Neutrophils # Man 40.2 H Lymphocytes # (Manual) Monocytes # (Manual) 3.2 H Eosinophils # (Manual) Basophils # (Manual) PT 18.2 H INR 1.52 H APTT D-Dimer Heparin Anti-Xa Level ABG pH 7.313 L POC ABG pCO2 50.9 H POC ABG pO2 ABG pO2 ABG HCO3 ABG O2 Saturation ABG Base Excess ABG Hemoglobin 7.5 L ABG Oxyhemoglobin ABG Sodium 131.8 L ABG Potassium 4.6 H ABG Chloride ABG Glucose 105 H Oxyhemoglobin Carboxyhemoglobin Sodium Potassium Chloride Carbon Dioxide BUN Creatinine Glucose POC Glucose Lactic Acid Calcium Phosphorus Magnesium Ferritin Direct Bilirubin AST ALT Alkaline Phosphatase Lactate Dehydrogenase Total Creatine Kinase C-Reactive Protein Total Protein Albumin Triglycerides Arterial Blood Glucose 105 H Arterial Blood Ionized Calcium 3.9 L Urine Creatinine Urine Chloride Vancomycin Trough Coronavirus (PCR) Crossmatch 07/17/20 07/18/20 07/18/20 Unknown 03:10 05:06 WBC 37.9 H RBC 2.91 L Hgb 8.5 L Hct 25.6 L D MCHC RDW Plt Count Lymph % (Auto) [place] % (Auto) Lymph # (Auto) [place] # (Auto) Eos # (Auto) Baso # (Auto) Seg Neutrophils % Seg Neuts % (Manual) Lymphocytes % (Manual) Monocytes % (Manual) Basophils % (Manual) Nucleated RBC % Seg Neutrophils # Seg Neutrophils # Man Lymphocytes # (Manual) Monocytes # (Manual) Eosinophils # (Manual) Basophils # (Manual) PT INR APTT D-Dimer Heparin Anti-Xa Level ABG pH POC ABG pCO2 POC ABG pO2 114.9 H ABG pO2 ABG HCO3 ABG O2 Saturation ABG Base Excess ABG Hemoglobin 8.6 L ABG Oxyhemoglobin ABG Sodium 130.6 L ABG Potassium 4.9 H ABG Chloride ABG Glucose Oxyhemoglobin Carboxyhemoglobin Sodium Potassium Chloride Carbon Dioxide BUN Creatinine Glucose POC Glucose Lactic Acid Calcium Phosphorus Magnesium Ferritin Direct Bilirubin AST ALT Alkaline Phosphatase Lactate Dehydrogenase Total Creatine Kinase C-Reactive Protein Total Protein Albumin Triglycerides Arterial Blood Glucose Arterial Blood Ionized Calcium 3.8 L Urine Creatinine Urine Chloride Vancomycin Trough Coronavirus (PCR) Crossmatch See Detail 07/18/20 07/19/20 07/19/20 05:06 00:06 03:57 WBC RBC Hgb Hct MCHC RDW Plt Count Lymph % (Auto) [place] % (Auto) Lymph # (Auto) [place] # (Auto) Eos # (Auto) Baso # (Auto) Seg Neutrophils % Seg Neuts % (Manual) Lymphocytes % (Manual) Monocytes % (Manual) Basophils % (Manual) Nucleated RBC % Seg Neutrophils # Seg Neutrophils # Man Lymphocytes # (Manual) Monocytes # (Manual) Eosinophils # (Manual) Basophils # (Manual) PT INR APTT D-Dimer Heparin Anti-Xa Level ABG pH POC ABG pCO2 POC ABG pO2 ABG pO2 ABG HCO3 ABG O2 Saturation ABG Base Excess ABG Hemoglobin 8.6 L ABG Oxyhemoglobin ABG Sodium 130.4 L ABG Potassium ABG Chloride ABG Glucose Oxyhemoglobin Carboxyhemoglobin Sodium Potassium 5.4 H Chloride Carbon Dioxide BUN 79 H Creatinine 3.2 H Glucose POC Glucose 69 L Lactic Acid Calcium 6.9 L Phosphorus Magnesium Ferritin Direct Bilirubin AST ALT 58 H Alkaline Phosphatase Lactate Dehydrogenase Total Creatine Kinase C-Reactive Protein Total Protein 4.3 L D Albumin 1.7 L Triglycerides 306 H Arterial Blood Glucose Arterial Blood Ionized Calcium 3.9 L Urine Creatinine Urine Chloride Vancomycin Trough Coronavirus (PCR) Crossmatch 07/19/20 07/19/20 07/19/20 05:22 09:15 09:15 WBC 32.5 H RBC 2.57 L Hgb 7.8 L Hct 22.8 L MCHC RDW 15.3 H Plt Count Lymph % (Auto) [place] % (Auto) Lymph # (Auto) [place] # (Auto) Eos # (Auto) Baso # (Auto) Seg Neutrophils % Seg Neuts % (Manual) Lymphocytes % (Manual) Monocytes % (Manual) Basophils % (Manual) Nucleated RBC % Seg Neutrophils # Seg Neutrophils # Man Lymphocytes # (Manual) Monocytes # (Manual) Eosinophils # (Manual) Basophils # (Manual) PT INR APTT D-Dimer Heparin Anti-Xa Level ABG pH POC ABG pCO2 POC ABG pO2 ABG pO2 ABG HCO3 ABG O2 Saturation ABG Base Excess ABG Hemoglobin ABG Oxyhemoglobin ABG Sodium ABG Potassium ABG Chloride ABG Glucose Oxyhemoglobin Carboxyhemoglobin Sodium 135 L Potassium Chloride 96.3 L Carbon Dioxide BUN 61 H Creatinine 2.8 H Glucose POC Glucose 64 L Lactic Acid Calcium 6.8 L Phosphorus Magnesium Ferritin Direct Bilirubin AST 54 H ALT 65 H Alkaline Phosphatase Lactate Dehydrogenase Total Creatine Kinase C-Reactive Protein Total Protein 4.3 L Albumin 1.8 L Triglycerides Arterial Blood Glucose Arterial Blood Ionized Calcium Urine Creatinine Urine Chloride Vancomycin Trough Coronavirus (PCR) Crossmatch 07/20/20 07/20/20 07/20/20 05:20 06:00 06:07 WBC 28.1 H RBC 2.53 L Hgb 7.7 L Hct 22.7 L MCHC RDW 15.5 H Plt Count Lymph % (Auto) [place] % (Auto) Lymph # (Auto) [place] # (Auto) Eos # (Auto) Baso # (Auto) Seg Neutrophils % Seg Neuts % (Manual) Lymphocytes % (Manual) Monocytes % (Manual) Basophils % (Manual) Nucleated RBC % Seg Neutrophils # Seg Neutrophils # Man Lymphocytes # (Manual) Monocytes # (Manual) Eosinophils # (Manual) Basophils # (Manual) PT INR APTT D-Dimer Heparin Anti-Xa Level ABG pH POC ABG pCO2 POC ABG pO2 ABG pO2 ABG HCO3 ABG O2 Saturation ABG Base Excess ABG Hemoglobin 6.3 L ABG Oxyhemoglobin ABG Sodium 130.0 L ABG Potassium ABG Chloride ABG Glucose 114 H Oxyhemoglobin Carboxyhemoglobin Sodium Potassium Chloride Carbon Dioxide BUN Creatinine Glucose POC Glucose 110 H Lactic Acid Calcium Phosphorus Magnesium Ferritin Direct Bilirubin AST ALT Alkaline Phosphatase Lactate Dehydrogenase Total Creatine Kinase C-Reactive Protein Total Protein Albumin Triglycerides Arterial Blood Glucose 114 H Arterial Blood Ionized Calcium 3.9 L Urine Creatinine Urine Chloride Vancomycin Trough Coronavirus (PCR) Crossmatch 07/20/20 07/21/20 07/21/20 17:19 05:02 05:40 WBC 32.9 H RBC 2.78 L Hgb 8.5 L Hct 25.2 L MCHC RDW 15.7 H Plt Count 74 L Lymph % (Auto) [place] % (Auto) Lymph # (Auto) [place] # (Auto) Eos # (Auto) Baso # (Auto) Seg Neutrophils % Seg Neuts % (Manual) Lymphocytes % (Manual) Monocytes % (Manual) Basophils % (Manual) Nucleated RBC % Seg Neutrophils # Seg Neutrophils # Man Lymphocytes # (Manual) Monocytes # (Manual) Eosinophils # (Manual) Basophils # (Manual) PT INR APTT D-Dimer Heparin Anti-Xa Level ABG pH POC ABG pCO2 POC ABG pO2 73.2 L ABG pO2 ABG HCO3 ABG O2 Saturation ABG Base Excess ABG Hemoglobin 9.1 L ABG Oxyhemoglobin 93.4 L ABG Sodium ABG Potassium 3.1 L ABG Chloride ABG Glucose 112 H Oxyhemoglobin Carboxyhemoglobin Sodium Potassium Chloride Carbon Dioxide BUN Creatinine Glucose POC Glucose 137 H Lactic Acid Calcium Phosphorus Magnesium Ferritin Direct Bilirubin AST ALT Alkaline Phosphatase Lactate Dehydrogenase Total Creatine Kinase C-Reactive Protein Total Protein Albumin Triglycerides Arterial Blood Glucose 112 H Arterial Blood Ionized Calcium Urine Creatinine Urine Chloride Vancomycin Trough Coronavirus (PCR) Crossmatch 07/22/20 07/22/20 07/22/20 04:11 16:00 16:00 WBC 38.7 H RBC 2.72 L Hgb 8.1 L Hct 24.5 L MCHC RDW 16.1 H Plt Count Lymph % (Auto) [place] % (Auto) Lymph # (Auto) [place] # (Auto) Eos # (Auto) Baso # (Auto) Seg Neutrophils % Seg Neuts % (Manual) Lymphocytes % (Manual) Monocytes % (Manual) Basophils % (Manual) Nucleated RBC % Seg Neutrophils # Seg Neutrophils # Man Lymphocytes # (Manual) Monocytes # (Manual) Eosinophils # (Manual) Basophils # (Manual) PT INR APTT D-Dimer Heparin Anti-Xa Level ABG pH POC ABG pCO2 POC ABG pO2 67.7 L ABG pO2 ABG HCO3 ABG O2 Saturation ABG Base Excess ABG Hemoglobin 7.4 L ABG Oxyhemoglobin 91.7 L ABG Sodium ABG Potassium 2.9 L ABG Chloride ABG Glucose 105 H Oxyhemoglobin Carboxyhemoglobin Sodium Potassium Chloride Carbon Dioxide BUN Creatinine Glucose POC Glucose Lactic Acid Calcium Phosphorus Magnesium Ferritin Direct Bilirubin AST ALT Alkaline Phosphatase Lactate Dehydrogenase Total Creatine Kinase C-Reactive Protein Total Protein Albumin Triglycerides 197 H Arterial Blood Glucose 105 H Arterial Blood Ionized Calcium Urine Creatinine Urine Chloride Vancomycin Trough Coronavirus (PCR) Crossmatch 07/23/20 07/23/20 07/23/20 04:56 11:49 Unknown WBC RBC Hgb Hct MCHC RDW Plt Count Lymph % (Auto) [place] % (Auto) Lymph # (Auto) [place] # (Auto) Eos # (Auto) Baso # (Auto) Seg Neutrophils % Seg Neuts % (Manual) Lymphocytes % (Manual) Monocytes % (Manual) Basophils % (Manual) Nucleated RBC % Seg Neutrophils # Seg Neutrophils # Man Lymphocytes # (Manual) Monocytes # (Manual) Eosinophils # (Manual) Basophils # (Manual) PT INR APTT D-Dimer Heparin Anti-Xa Level ABG pH POC ABG pCO2 POC ABG pO2 75.7 L ABG pO2 ABG HCO3 ABG O2 Saturation ABG Base Excess ABG Hemoglobin 9.3 L ABG Oxyhemoglobin ABG Sodium ABG Potassium 3.1 L ABG Chloride 108.0 H ABG Glucose 101 H Oxyhemoglobin Carboxyhemoglobin Sodium Potassium 3.1 L D Chloride Carbon Dioxide BUN 36 H Creatinine 2.1 H Glucose 103 H POC Glucose 107 H Lactic Acid Calcium Phosphorus Magnesium Ferritin Direct Bilirubin AST ALT Alkaline Phosphatase Lactate Dehydrogenase Total Creatine Kinase C-Reactive Protein Total Protein Albumin Triglycerides Arterial Blood Glucose 101 H Arterial Blood Ionized Calcium Urine Creatinine Urine Chloride Vancomycin Trough Coronavirus (PCR) Crossmatch 07/24/20 07/24/20 07/24/20 06:40 06:40 20:38 WBC 31.4 H RBC 2.37 L Hgb 7.2 L Hct 21.7 L MCHC RDW 17.0 H Plt Count Lymph % (Auto) [place] % (Auto) Lymph # (Auto) [place] # (Auto) Eos # (Auto) Baso # (Auto) Seg Neutrophils % Seg Neuts % (Manual) 85.0 H Lymphocytes % (Manual) 6.0 L Monocytes % (Manual) Basophils % (Manual) Nucleated RBC % Seg Neutrophils # Seg Neutrophils # Man 26.7 H Lymphocytes # (Manual) Monocytes # (Manual) 0.9 H Eosinophils # (Manual) Basophils # (Manual) 0.3 H PT INR APTT D-Dimer Heparin Anti-Xa Level ABG pH POC ABG pCO2 POC ABG pO2 ABG pO2 ABG HCO3 ABG O2 Saturation ABG Base Excess ABG Hemoglobin ABG Oxyhemoglobin ABG Sodium ABG Potassium ABG Chloride ABG Glucose Oxyhemoglobin Carboxyhemoglobin Sodium Potassium 3.1 L Chloride Carbon Dioxide BUN 46 H Creatinine 2.5 H Glucose 109 H POC Glucose Lactic Acid Calcium Phosphorus Magnesium Ferritin Direct Bilirubin AST 46 H ALT 74 H Alkaline Phosphatase 180 H Lactate Dehydrogenase Total Creatine Kinase C-Reactive Protein Total Protein 4.6 L Albumin 2.0 L Triglycerides Arterial Blood Glucose Arterial Blood Ionized Calcium Urine Creatinine Urine Chloride Vancomycin Trough Coronavirus (PCR) Crossmatch See Detail 07/24/20 07/25/20 07/25/20 20:40 05:39 05:39 WBC 26.6 H RBC 2.79 L Hgb 8.5 L Hct 25.6 L MCHC RDW 16.1 H Plt Count Lymph % (Auto) [place] % (Auto) Lymph # (Auto) [place] # (Auto) Eos # (Auto) Baso # (Auto) Seg Neutrophils % Seg Neuts % (Manual) 72.0 H Lymphocytes % (Manual) 2.0 L Monocytes % (Manual) Basophils % (Manual) 3.0 H Nucleated RBC % 1.0 H Seg Neutrophils # Seg Neutrophils # Man 19.2 H Lymphocytes # (Manual) 0.5 L Monocytes # (Manual) 1.6 H Eosinophils # (Manual) 0.5 H Basophils # (Manual) 0.8 H PT 15.3 H INR 1.21 H APTT D-Dimer Heparin Anti-Xa Level ABG pH POC ABG pCO2 POC ABG pO2 ABG pO2 ABG HCO3 ABG O2 Saturation ABG Base Excess ABG Hemoglobin ABG Oxyhemoglobin ABG Sodium ABG Potassium ABG Chloride ABG Glucose Oxyhemoglobin Carboxyhemoglobin Sodium Potassium Chloride Carbon Dioxide BUN 55 H Creatinine 2.9 H Glucose POC Glucose Lactic Acid Calcium Phosphorus Magnesium Ferritin Direct Bilirubin AST ALT Alkaline Phosphatase Lactate Dehydrogenase Total Creatine Kinase C-Reactive Protein Total Protein Albumin Triglycerides Arterial Blood Glucose Arterial Blood Ionized Calcium Urine Creatinine Urine Chloride Vancomycin Trough Coronavirus (PCR) Crossmatch 07/25/20 07/26/20 07/26/20 17:22 08:46 08:46 WBC RBC Hgb Hct MCHC RDW Plt Count Lymph % (Auto) [place] % (Auto) Lymph # (Auto) [place] # (Auto) Eos # (Auto) Baso # (Auto) Seg Neutrophils % Seg Neuts % (Manual) Lymphocytes % (Manual) Monocytes % (Manual) Basophils % (Manual) Nucleated RBC % Seg Neutrophils # Seg Neutrophils # Man Lymphocytes # (Manual) Monocytes # (Manual) Eosinophils # (Manual) Basophils # (Manual) PT INR APTT D-Dimer Heparin Anti-Xa Level ABG pH POC ABG pCO2 POC ABG pO2 ABG pO2 ABG HCO3 ABG O2 Saturation ABG Base Excess ABG Hemoglobin ABG Oxyhemoglobin ABG Sodium ABG Potassium ABG Chloride ABG Glucose Oxyhemoglobin Carboxyhemoglobin Sodium Potassium Chloride Carbon Dioxide 31 H BUN 37 H Creatinine 2.2 H Glucose POC Glucose 65 L Lactic Acid Calcium 8.2 L Phosphorus Magnesium Ferritin Direct Bilirubin AST ALT Alkaline Phosphatase Lactate Dehydrogenase Total Creatine Kinase C-Reactive Protein Total Protein Albumin Triglycerides 166 H Arterial Blood Glucose Arterial Blood Ionized Calcium Urine Creatinine Urine Chloride Vancomycin Trough Coronavirus (PCR) Crossmatch 07/26/20 07/27/20 07/27/20 Unknown 04:00 07:09 WBC 24.6 H 27.1 H RBC 2.68 L 2.74 L Hgb 8.3 L 8.3 L Hct 24.7 L 25.3 L MCHC RDW 16.3 H 17.2 H Plt Count Lymph % (Auto) [place] % (Auto) Lymph # (Auto) [place] # (Auto) Eos # (Auto) Baso # (Auto) Seg Neutrophils % Seg Neuts % (Manual) 82.0 H 85.0 H Lymphocytes % (Manual) 5.0 L 4.0 L Monocytes % (Manual) 8.0 H Basophils % (Manual) Nucleated RBC % Seg Neutrophils # Seg Neutrophils # Man 20.2 H 23.0 H Lymphocytes # (Manual) 1.1 L Monocytes # (Manual) 2.0 H 1.6 H Eosinophils # (Manual) 0.7 H 1.1 H Basophils # (Manual) 0.3 H PT INR APTT D-Dimer Heparin Anti-Xa Level ABG pH POC ABG pCO2 POC ABG pO2 ABG pO2 ABG HCO3 ABG O2 Saturation ABG Base Excess ABG Hemoglobin ABG Oxyhemoglobin ABG Sodium ABG Potassium ABG Chloride ABG Glucose Oxyhemoglobin Carboxyhemoglobin Sodium Potassium Chloride Carbon Dioxide BUN Creatinine Glucose POC Glucose 115 H Lactic Acid Calcium Phosphorus Magnesium Ferritin Direct Bilirubin AST ALT Alkaline Phosphatase Lactate Dehydrogenase Total Creatine Kinase C-Reactive Protein Total Protein Albumin Triglycerides Arterial Blood Glucose Arterial Blood Ionized Calcium Urine Creatinine Urine Chloride Vancomycin Trough Coronavirus (PCR) Crossmatch 07/27/20 07/27/20 07/28/20 21:45 22:36 00:05 WBC RBC Hgb 6.4 L Hct 19.8 L* MCHC RDW Plt Count Lymph % (Auto) [place] % (Auto) Lymph # (Auto) [place] # (Auto) Eos # (Auto) Baso # (Auto) Seg Neutrophils % Seg Neuts % (Manual) Lymphocytes % (Manual) Monocytes % (Manual) Basophils % (Manual) Nucleated RBC % Seg Neutrophils # Seg Neutrophils # Man Lymphocytes # (Manual) Monocytes # (Manual) Eosinophils # (Manual) Basophils # (Manual) PT INR APTT D-Dimer Heparin Anti-Xa Level ABG pH POC ABG pCO2 POC ABG pO2 ABG pO2 ABG HCO3 ABG O2 Saturation ABG Base Excess ABG Hemoglobin ABG Oxyhemoglobin ABG Sodium ABG Potassium ABG Chloride ABG Glucose Oxyhemoglobin Carboxyhemoglobin Sodium Potassium Chloride Carbon Dioxide BUN Creatinine Glucose POC Glucose 124 H Lactic Acid Calcium Phosphorus Magnesium Ferritin Direct Bilirubin AST ALT Alkaline Phosphatase Lactate Dehydrogenase Total Creatine Kinase C-Reactive Protein Total Protein Albumin Triglycerides Arterial Blood Glucose Arterial Blood Ionized Calcium Urine Creatinine Urine Chloride Vancomycin Trough Coronavirus (PCR) Crossmatch See Detail 07/28/20 07/28/20 07/28/20 04:00 06:27 12:24 WBC 30.3 H RBC 2.35 L Hgb 7.2 L Hct 21.2 L MCHC RDW 16.8 H Plt Count Lymph % (Auto) [place] % (Auto) Lymph # (Auto) [place] # (Auto) Eos # (Auto) Baso # (Auto) Seg Neutrophils % Seg Neuts % (Manual) Lymphocytes % (Manual) Monocytes % (Manual) Basophils % (Manual) Nucleated RBC % Seg Neutrophils # Seg Neutrophils # Man Lymphocytes # (Manual) Monocytes # (Manual) Eosinophils # (Manual) Basophils # (Manual) PT INR APTT D-Dimer Heparin Anti-Xa Level ABG pH POC ABG pCO2 POC ABG pO2 ABG pO2 ABG HCO3 ABG O2 Saturation ABG Base Excess ABG Hemoglobin ABG Oxyhemoglobin ABG Sodium ABG Potassium ABG Chloride ABG Glucose Oxyhemoglobin Carboxyhemoglobin Sodium Potassium Chloride Carbon Dioxide BUN Creatinine Glucose POC Glucose 107 H 110 H Lactic Acid Calcium Phosphorus Magnesium Ferritin Direct Bilirubin AST ALT Alkaline Phosphatase Lactate Dehydrogenase Total Creatine Kinase C-Reactive Protein Total Protein Albumin Triglycerides Arterial Blood Glucose Arterial Blood Ionized Calcium Urine Creatinine Urine Chloride Vancomycin Trough Coronavirus (PCR) Crossmatch 07/28/20 07/28/20 07/28/20 14:31 18:19 23:33 WBC RBC Hgb Hct MCHC RDW Plt Count Lymph % (Auto) [place] % (Auto) Lymph # (Auto) [place] # (Auto) Eos # (Auto) Baso # (Auto) Seg Neutrophils % Seg Neuts % (Manual) Lymphocytes % (Manual) Monocytes % (Manual) Basophils % (Manual) Nucleated RBC % Seg Neutrophils # Seg Neutrophils # Man Lymphocytes # (Manual) Monocytes # (Manual) Eosinophils # (Manual) Basophils # (Manual) PT INR APTT D-Dimer Heparin Anti-Xa Level ABG pH 7.333 L POC ABG pCO2 POC ABG pO2 ABG pO2 68.0 L ABG HCO3 ABG O2 Saturation 92.4 L ABG Base Excess -2.7 L ABG Hemoglobin 9.0 L ABG Oxyhemoglobin ABG Sodium ABG Potassium ABG Chloride ABG Glucose Oxyhemoglobin 89.9 L Carboxyhemoglobin Sodium Potassium Chloride Carbon Dioxide BUN Creatinine Glucose POC Glucose 117 H 113 H Lactic Acid Calcium Phosphorus Magnesium Ferritin Direct Bilirubin AST ALT Alkaline Phosphatase Lactate Dehydrogenase Total Creatine Kinase C-Reactive Protein Total Protein Albumin Triglycerides Arterial Blood Glucose Arterial Blood Ionized Calcium Urine Creatinine Urine Chloride Vancomycin Trough Coronavirus (PCR) Crossmatch 07/28/20 07/29/20 07/29/20 Unknown 04:39 04:39 WBC 38.6 H RBC 2.15 L Hgb 6.6 L Hct 19.9 L* MCHC RDW 17.5 H Plt Count Lymph % (Auto) 3.2 L [place] % (Auto) Lymph # (Auto) [place] # (Auto) 2.7 H Eos # (Auto) 0.8 H Baso # (Auto) 0.4 H Seg Neutrophils % 86.5 H Seg Neuts % (Manual) Lymphocytes % (Manual) Monocytes % (Manual) Basophils % (Manual) Nucleated RBC % Seg Neutrophils # 33.4 H Seg Neutrophils # Man Lymphocytes # (Manual) Monocytes # (Manual) Eosinophils # (Manual) Basophils # (Manual) PT INR APTT D-Dimer Heparin Anti-Xa Level ABG pH POC ABG pCO2 POC ABG pO2 ABG pO2 ABG HCO3 ABG O2 Saturation ABG Base Excess ABG Hemoglobin ABG Oxyhemoglobin ABG Sodium ABG Potassium ABG Chloride ABG Glucose Oxyhemoglobin Carboxyhemoglobin Sodium 135 L Potassium 3.2 L 3.1 L Chloride Carbon Dioxide BUN 35 H 42 H Creatinine 2.3 H 2.5 H Glucose 123 H 109 H POC Glucose Lactic Acid Calcium 7.2 L 7.5 L Phosphorus Magnesium Ferritin Direct Bilirubin AST ALT Alkaline Phosphatase Lactate Dehydrogenase Total Creatine Kinase C-Reactive Protein Total Protein Albumin Triglycerides Arterial Blood Glucose Arterial Blood Ionized Calcium Urine Creatinine Urine Chloride Vancomycin Trough Coronavirus (PCR) Crossmatch 07/29/20 07/29/20 07/29/20 05:36 11:51 17:42 WBC RBC Hgb Hct MCHC RDW Plt Count Lymph % (Auto) [place] % (Auto) Lymph # (Auto) [place] # (Auto) Eos # (Auto) Baso # (Auto) Seg Neutrophils % Seg Neuts % (Manual) Lymphocytes % (Manual) Monocytes % (Manual) Basophils % (Manual) Nucleated RBC % Seg Neutrophils # Seg Neutrophils # Man Lymphocytes # (Manual) Monocytes # (Manual) Eosinophils # (Manual) Basophils # (Manual) PT INR APTT D-Dimer Heparin Anti-Xa Level ABG pH POC ABG pCO2 POC ABG pO2 ABG pO2 ABG HCO3 ABG O2 Saturation ABG Base Excess ABG Hemoglobin ABG Oxyhemoglobin ABG Sodium ABG Potassium ABG Chloride ABG Glucose Oxyhemoglobin Carboxyhemoglobin Sodium Potassium Chloride Carbon Dioxide BUN Creatinine Glucose POC Glucose 111 H 127 H 117 H Lactic Acid Calcium Phosphorus Magnesium Ferritin Direct Bilirubin AST ALT Alkaline Phosphatase Lactate Dehydrogenase Total Creatine Kinase C-Reactive Protein Total Protein Albumin Triglycerides Arterial Blood Glucose Arterial Blood Ionized Calcium Urine Creatinine Urine Chloride Vancomycin Trough Coronavirus (PCR) Crossmatch 07/29/20 07/30/20 07/30/20 23:07 17:32 23:13 WBC RBC Hgb Hct MCHC RDW Plt Count Lymph % (Auto) [place] % (Auto) Lymph # (Auto) [place] # (Auto) Eos # (Auto) Baso # (Auto) Seg Neutrophils % Seg Neuts % (Manual) Lymphocytes % (Manual) Monocytes % (Manual) Basophils % (Manual) Nucleated RBC % Seg Neutrophils # Seg Neutrophils # Man Lymphocytes # (Manual) Monocytes # (Manual) Eosinophils # (Manual) Basophils # (Manual) PT INR APTT D-Dimer Heparin Anti-Xa Level ABG pH POC ABG pCO2 POC ABG pO2 ABG pO2 ABG HCO3 ABG O2 Saturation ABG Base Excess ABG Hemoglobin ABG Oxyhemoglobin ABG Sodium ABG Potassium ABG Chloride ABG Glucose Oxyhemoglobin Carboxyhemoglobin Sodium Potassium Chloride Carbon Dioxide BUN Creatinine Glucose POC Glucose 116 H 107 H Lactic Acid Calcium Phosphorus Magnesium Ferritin Direct Bilirubin AST ALT Alkaline Phosphatase Lactate Dehydrogenase Total Creatine Kinase C-Reactive Protein Total Protein Albumin Triglycerides Arterial Blood Glucose Arterial Blood Ionized Calcium Urine Creatinine Urine Chloride Vancomycin Trough Coronavirus (PCR) Crossmatch See Detail 07/30/20 07/31/20 07/31/20 Unknown 05:28 09:00 WBC 30.8 H RBC 2.39 L Hgb 7.3 L Hct 21.9 L MCHC RDW 16.7 H Plt Count Lymph % (Auto) [place] % (Auto) Lymph # (Auto) [place] # (Auto) Eos # (Auto) Baso # (Auto) Seg Neutrophils % Seg Neuts % (Manual) 85.0 H Lymphocytes % (Manual) 1.0 L Monocytes % (Manual) Basophils % (Manual) Nucleated RBC % 1.0 H Seg Neutrophils # Seg Neutrophils # Man 26.2 H Lymphocytes # (Manual) 0.3 L Monocytes # (Manual) 1.8 H Eosinophils # (Manual) Basophils # (Manual) PT INR APTT D-Dimer Heparin Anti-Xa Level ABG pH 7.241 L POC ABG pCO2 52.8 H POC ABG pO2 63.3 L ABG pO2 ABG HCO3 ABG O2 Saturation ABG Base Excess ABG Hemoglobin 7.6 L ABG Oxyhemoglobin ABG Sodium 133.6 L ABG Potassium ABG Chloride ABG Glucose 114 H Oxyhemoglobin Carboxyhemoglobin Sodium Potassium Chloride Carbon Dioxide BUN Creatinine Glucose POC Glucose Lactic Acid Calcium Phosphorus Magnesium Ferritin Direct Bilirubin AST ALT Alkaline Phosphatase Lactate Dehydrogenase Total Creatine Kinase C-Reactive Protein Total Protein Albumin Triglycerides 184 H Arterial Blood Glucose 114 H Arterial Blood Ionized Calcium 4.4 L Urine Creatinine Urine Chloride Vancomycin Trough Coronavirus (PCR) Crossmatch 07/31/20 07/31/2007/31/21 09:00 12:00 16:17 WBC RBC Hgb Hct MCHC RDW Plt Count Lymph % (Auto) [place] % (Auto) Lymph # (Auto) [place] # (Auto) Eos # (Auto) Baso # (Auto) Seg Neutrophils % Seg Neuts % (Manual) Lymphocytes % (Manual) Monocytes % (Manual) Basophils % (Manual) Nucleated RBC % Seg Neutrophils # Seg Neutrophils # Man Lymphocytes # (Manual) Monocytes # (Manual) Eosinophils # (Manual) Basophils # (Manual) PT INR APTT D-Dimer Heparin Anti-Xa Level ABG pH POC ABG pCO2 POC ABG pO2 148.6 H ABG pO2 ABG HCO3 ABG O2 Saturation ABG Base Excess ABG Hemoglobin 6.7 L ABG Oxyhemoglobin ABG Sodium 132.3 L ABG Potassium ABG Chloride ABG Glucose 115 H Oxyhemoglobin Carboxyhemoglobin Sodium 136 L Potassium Chloride Carbon Dioxide BUN 46 H Creatinine 2.4 H Glucose POC Glucose 106 H Lactic Acid Calcium 7.7 L Phosphorus Magnesium Ferritin Direct Bilirubin AST ALT Alkaline Phosphatase Lactate Dehydrogenase Total Creatine Kinase C-Reactive Protein Total Protein Albumin Triglycerides Arterial Blood Glucose 115 H Arterial Blood Ionized Calcium 4.2 L Urine Creatinine Urine Chloride Vancomycin Trough Coronavirus (PCR) Crossmatch 07/31/20 08/01/20 08/01/20 17:05 04:48 05:00 WBC RBC Hgb Hct MCHC RDW Plt Count Lymph % (Auto) [place] % (Auto) Lymph # (Auto) [place] # (Auto) Eos # (Auto) Baso # (Auto) Seg Neutrophils % Seg Neuts % (Manual) Lymphocytes % (Manual) Monocytes % (Manual) Basophils % (Manual) Nucleated RBC % Seg Neutrophils # Seg Neutrophils # Man Lymphocytes # (Manual) Monocytes # (Manual) Eosinophils # (Manual) Basophils # (Manual) PT INR APTT D-Dimer Heparin Anti-Xa Level ABG pH POC ABG pCO2 POC ABG pO2 111.5 H ABG pO2 ABG HCO3 ABG O2 Saturation ABG Base Excess ABG Hemoglobin 7.1 L ABG Oxyhemoglobin ABG Sodium 131.4 L ABG Potassium ABG Chloride ABG Glucose 107 H Oxyhemoglobin Carboxyhemoglobin Sodium 135 L Potassium Chloride Carbon Dioxide BUN 56 H Creatinine 2.6 H Glucose 117 H POC Glucose 119 H Lactic Acid Calcium 7.8 L Phosphorus Magnesium Ferritin Direct Bilirubin AST ALT Alkaline Phosphatase Lactate Dehydrogenase Total Creatine Kinase C-Reactive Protein Total Protein Albumin Triglycerides Arterial Blood Glucose 107 H Arterial Blood Ionized Calcium 4.3 L Urine Creatinine Urine Chloride Vancomycin Trough Coronavirus (PCR) Crossmatch 08/01/20 08/01/20 08/01/20 05:00 11:53 17:38 WBC 22.0 H RBC 2.26 L Hgb 6.8 L Hct 20.5 L MCHC RDW 16.6 H Plt Count Lymph % (Auto) [place] % (Auto) Lymph # (Auto) [place] # (Auto) Eos # (Auto) Baso # (Auto) Seg Neutrophils % Seg Neuts % (Manual) Lymphocytes % (Manual) Monocytes % (Manual) Basophils % (Manual) Nucleated RBC % Seg Neutrophils # Seg Neutrophils # Man Lymphocytes # (Manual) Monocytes # (Manual) Eosinophils # (Manual) Basophils # (Manual) PT INR APTT D-Dimer Heparin Anti-Xa Level ABG pH POC ABG pCO2 POC ABG pO2 ABG pO2 ABG HCO3 ABG O2 Saturation ABG Base Excess ABG Hemoglobin ABG Oxyhemoglobin ABG Sodium ABG Potassium ABG Chloride ABG Glucose Oxyhemoglobin Carboxyhemoglobin Sodium Potassium Chloride Carbon Dioxide BUN Creatinine Glucose POC Glucose 107 H 111 H Lactic Acid Calcium Phosphorus Magnesium Ferritin Direct Bilirubin AST ALT Alkaline Phosphatase Lactate Dehydrogenase Total Creatine Kinase C-Reactive Protein Total Protein Albumin Triglycerides Arterial Blood Glucose Arterial Blood Ionized Calcium Urine Creatinine Urine Chloride Vancomycin Trough Coronavirus (PCR) Crossmatch 08/01/20 08/02/20 08/02/20 23:49 05:11 05:20 WBC 17.2 H RBC 2.73 L Hgb 8.3 L Hct 24.6 L MCHC RDW 16.0 H Plt Count Lymph % (Auto) [place] % (Auto) Lymph # (Auto) [place] # (Auto) Eos # (Auto) Baso # (Auto) Seg Neutrophils % Seg Neuts % (Manual) Lymphocytes % (Manual) Monocytes % (Manual) Basophils % (Manual) Nucleated RBC % Seg Neutrophils # Seg Neutrophils # Man Lymphocytes # (Manual) Monocytes # (Manual) Eosinophils # (Manual) Basophils # (Manual) PT INR APTT D-Dimer Heparin Anti-Xa Level ABG pH POC ABG pCO2 POC ABG pO2 ABG pO2 ABG HCO3 ABG O2 Saturation ABG Base Excess ABG Hemoglobin ABG Oxyhemoglobin ABG Sodium ABG Potassium ABG Chloride ABG Glucose Oxyhemoglobin Carboxyhemoglobin Sodium Potassium Chloride Carbon Dioxide BUN Creatinine Glucose POC Glucose 107 H 119 H Lactic Acid Calcium Phosphorus Magnesium Ferritin Direct Bilirubin AST ALT Alkaline Phosphatase Lactate Dehydrogenase Total Creatine Kinase C-Reactive Protein Total Protein Albumin Triglycerides Arterial Blood Glucose Arterial Blood Ionized Calcium Urine Creatinine Urine Chloride Vancomycin Trough Coronavirus (PCR) Crossmatch 08/02/20 08/03/20 08/03/20 11:24 04:00 04:10 WBC RBC Hgb Hct MCHC RDW Plt Count Lymph % (Auto) [place] % (Auto) Lymph # (Auto) [place] # (Auto) Eos # (Auto) Baso # (Auto) Seg Neutrophils % Seg Neuts % (Manual) Lymphocytes % (Manual) Monocytes % (Manual) Basophils % (Manual) Nucleated RBC % Seg Neutrophils # Seg Neutrophils # Man Lymphocytes # (Manual) Monocytes # (Manual) Eosinophils # (Manual) Basophils # (Manual) PT INR APTT D-Dimer Heparin Anti-Xa Level ABG pH POC ABG pCO2 POC ABG pO2 133.7 H ABG pO2 ABG HCO3 ABG O2 Saturation ABG Base Excess ABG Hemoglobin 8.1 L ABG Oxyhemoglobin ABG Sodium 130.0 L ABG Potassium ABG Chloride ABG Glucose 97 H Oxyhemoglobin Carboxyhemoglobin Sodium 134 L Potassium Chloride 97.3 L Carbon Dioxide BUN 70 H Creatinine 2.6 H Glucose 102 H POC Glucose 129 H Lactic Acid Calcium 8.1 L Phosphorus Magnesium Ferritin Direct Bilirubin AST ALT Alkaline Phosphatase Lactate Dehydrogenase Total Creatine Kinase C-Reactive Protein Total Protein Albumin Triglycerides Arterial Blood Glucose 97 H Arterial Blood Ionized Calcium Urine Creatinine Urine Chloride Vancomycin Trough Coronavirus (PCR) Crossmatch 08/03/20 08/03/20 08/03/20 09:14 11:41 17:46 WBC 17.8 H RBC 2.91 L Hgb 8.6 L Hct 26.3 L MCHC RDW 16.0 H Plt Count Lymph % (Auto) [place] % (Auto) Lymph # (Auto) [place] # (Auto) Eos # (Auto) Baso # (Auto) Seg Neutrophils % Seg Neuts % (Manual) Lymphocytes % (Manual) Monocytes % (Manual) Basophils % (Manual) Nucleated RBC % Seg Neutrophils # Seg Neutrophils # Man Lymphocytes # (Manual) Monocytes # (Manual) Eosinophils # (Manual) Basophils # (Manual) PT INR APTT D-Dimer Heparin Anti-Xa Level ABG pH POC ABG pCO2 POC ABG pO2 ABG pO2 ABG HCO3 ABG O2 Saturation ABG Base Excess ABG Hemoglobin ABG Oxyhemoglobin ABG Sodium ABG Potassium ABG Chloride ABG Glucose Oxyhemoglobin Carboxyhemoglobin Sodium Potassium Chloride Carbon Dioxide BUN Creatinine Glucose POC Glucose 117 H 109 H Lactic Acid Calcium Phosphorus Magnesium Ferritin Direct Bilirubin AST ALT Alkaline Phosphatase Lactate Dehydrogenase Total Creatine Kinase C-Reactive Protein Total Protein Albumin Triglycerides Arterial Blood Glucose Arterial Blood Ionized Calcium Urine Creatinine Urine Chloride Vancomycin Trough Coronavirus (PCR) Crossmatch 08/03/20 08/03/20 08/04/20 21:00 23:23 04:00 WBC 16.6 H RBC 2.69 L Hgb 7.8 L Hct 24.3 L MCHC RDW 16.1 H Plt Count Lymph % (Auto) [place] % (Auto) Lymph # (Auto) [place] # (Auto) Eos # (Auto) Baso # (Auto) Seg Neutrophils % Seg Neuts % (Manual) Lymphocytes % (Manual) Monocytes % (Manual) Basophils % (Manual) Nucleated RBC % Seg Neutrophils # Seg Neutrophils # Man Lymphocytes # (Manual) Monocytes # (Manual) Eosinophils # (Manual) Basophils # (Manual) PT INR APTT D-Dimer Heparin Anti-Xa Level ABG pH POC ABG pCO2 48.3 H POC ABG pO2 67.6 L ABG pO2 ABG HCO3 ABG O2 Saturation ABG Base Excess ABG Hemoglobin 9.8 L ABG Oxyhemoglobin 92.2 L ABG Sodium 133.5 L ABG Potassium ABG Chloride ABG Glucose 115 H Oxyhemoglobin Carboxyhemoglobin Sodium Potassium Chloride Carbon Dioxide BUN Creatinine Glucose POC Glucose 116 H Lactic Acid Calcium Phosphorus Magnesium Ferritin Direct Bilirubin AST ALT Alkaline Phosphatase Lactate Dehydrogenase Total Creatine Kinase C-Reactive Protein Total Protein Albumin Triglycerides Arterial Blood Glucose 115 H Arterial Blood Ionized Calcium 4.5 L Urine Creatinine Urine Chloride Vancomycin Trough Coronavirus (PCR) Crossmatch 08/04/20 08/04/20 08/04/20 05:00 05:26 11:52 WBC RBC Hgb Hct MCHC RDW Plt Count Lymph % (Auto) [place] % (Auto) Lymph # (Auto) [place] # (Auto) Eos # (Auto) Baso # (Auto) Seg Neutrophils % Seg Neuts % (Manual) Lymphocytes % (Manual) Monocytes % (Manual) Basophils % (Manual) Nucleated RBC % Seg Neutrophils # Seg Neutrophils # Man Lymphocytes # (Manual) Monocytes # (Manual) Eosinophils # (Manual) Basophils # (Manual) PT INR APTT D-Dimer Heparin Anti-Xa Level ABG pH POC ABG pCO2 POC ABG pO2 ABG pO2 ABG HCO3 ABG O2 Saturation ABG Base Excess ABG Hemoglobin ABG Oxyhemoglobin ABG Sodium ABG Potassium ABG Chloride ABG Glucose Oxyhemoglobin Carboxyhemoglobin Sodium Potassium Chloride Carbon Dioxide BUN Creatinine Glucose POC Glucose 110 H 124 H Lactic Acid Calcium Phosphorus Magnesium Ferritin Direct Bilirubin AST ALT Alkaline Phosphatase Lactate Dehydrogenase Total Creatine Kinase C-Reactive Protein Total Protein Albumin Triglycerides 262 H Arterial Blood Glucose Arterial Blood Ionized Calcium Urine Creatinine Urine Chloride Vancomycin Trough Coronavirus (PCR) Crossmatch 08/04/20 08/04/20 08/05/20 18:11 23:23 Unknown WBC 22.3 H RBC 2.85 L Hgb 8.5 L Hct 25.7 L MCHC RDW 16.0 H Plt Count Lymph % (Auto) [place] % (Auto) Lymph # (Auto) [place] # (Auto) Eos # (Auto) Baso # (Auto) Seg Neutrophils % Seg Neuts % (Manual) Lymphocytes % (Manual) Monocytes % (Manual) Basophils % (Manual) Nucleated RBC % Seg Neutrophils # Seg Neutrophils # Man Lymphocytes # (Manual) Monocytes # (Manual) Eosinophils # (Manual) Basophils # (Manual) PT INR APTT D-Dimer Heparin Anti-Xa Level ABG pH POC ABG pCO2 POC ABG pO2 ABG pO2 ABG HCO3 ABG O2 Saturation ABG Base Excess ABG Hemoglobin ABG Oxyhemoglobin ABG Sodium ABG Potassium ABG Chloride ABG Glucose Oxyhemoglobin Carboxyhemoglobin Sodium Potassium Chloride Carbon Dioxide BUN Creatinine Glucose POC Glucose 117 H 112 H Lactic Acid Calcium Phosphorus Magnesium Ferritin Direct Bilirubin AST ALT Alkaline Phosphatase Lactate Dehydrogenase Total Creatine Kinase C-Reactive Protein Total Protein Albumin Triglycerides Arterial Blood Glucose Arterial Blood Ionized Calcium Urine Creatinine Urine Chloride Vancomycin Trough Coronavirus (PCR) Crossmatch Chest x-ray: image reviewed (CXR 08/02- persitent bilateral alveolar infiltrates, RIJ trialysis catheter, Trach in place) Allied health notes reviewed: RT
[2020-08-05] MEDS: EPOETIN ALFA-EPBX 10,000 UNIT/1 ML VIAL IV PRN (11:32)
--- NOTE | 2020-08-05 12:26 | Progress Note ---
Assessment and Plan Cultures: SARS CoV2 PCR: Positive 06/17/2020 blood culture: No growth 06/17/2020 sputum culture: No growth 07/15/2020 blood culture: No growth 07/15/2020 fungal blood culture: Enterococcus faecalis 07/15/2020 tracheal aspirate culture: Usual respiratory otf 07/18/2020 blood culture: no growth 07/31/2020 blood culture no growth 08/01/2020 tracheal aspirate Pseudomonas intermediate to cefepime MRSA PCR negative A/P: 59-year-old male with obesity, obesity hypoventilation syndrome: #Severe sepsis with septic shock: Decrease pressors at 2, vasopressin stopped, remains with high leukocytosis; secondary to pseudomonal VAP/extensive stage IV sacral decubitus #Pseudomonal VAP: Sputum on 08/01/2020 grew Pseudomonas intermediate to cefepime #Extensive stage IV sacral decubitus: s/p debridement by Dr. Kirk on 07/20/2020. S/p another debridement on 08/03/2020 Debridement of stage 4 sacral pressure ulcer -necrotic skin, SQ tissue, muscle and fascia were surgically, excisionally debrided Post debridement measurements: 14 X 17 X 3.8 cm #Recent Enterococcus bacteremia: 07/15/2020 fungal blood culture: grew Enterococcus. ?gut translocation. Interestingly other blood cultures from that day were negative. CT abdomen showed some colitis. Since repeat blood cultures negative. Completed ampicillin 14 days on 08/01/2020 #Anemia, GI bleed: GI on board. #Critical COVID-19 pneumonia: s/p abx, steroids and remdesivir. #Acute hypoxic respiratory failure: on the vent. Also with pneumomediastinum, subcutaneous emphysema. #Leukemoid reaction: likely multifactorial. #GIRISH: remains on HD per nephrology. Renally dose abx. Recs: -Continue meropenem renally adjusted due to MDR Pseudomonas and persistent septic shock D2 of 10 extended due to severe shock -Left femoral Vas-Cath was removed -UA pending, not collected -monitor fever and WBC -Appreciate surgical input and recent debridement -Monitor WBC Dr. Fajardo rounding this weekend Guarded prognosis Bere Hampton MD [facility] ([facility]) Office [phone] Subjective Date of service: 08/05/20 Principal diagnosis: ARF; Septic Shock; COVID-19 PNA; Atrial fibrillation; Obesity Interval history: Remains on Levophed, decreased requirement. Vasopressin tachycardia. No fever. Remains intubated FiO2 50%. Objective - Exam Narrative Exam: General appearance: Sedated on the ventilator Eyes: anicteric sclerae, moist conjunctivae; no lid-lag; PERRLA HENT: Normocephalic, Atraumatic; normal external ears, nares open, oropharynx limited Neck: Trach in place Lungs: Bilateral rhonchi CV: RRR Abdomen: Soft nontender abdominal wall edema Extremities: Bilateral leg edema Skin: Sacral decubitus extensive not examined Psych: Sedated Neuro: Sedated - Constitutional Vitals: Vital Signs Temp Pulse Resp BP Pulse Ox 99.1 F 103 H 17 84/48 94 08/05/20 12:12 08/05/20 12:12 08/05/20 12:12 08/05/20 12:12 08/05/20 12:12 Temperature -Last 24 Hours Temperature 99.1 F Temperature 98.8 F Temperature 98.6 F Temperature 99.7 F Temperature 97.9 F Temperature 98.9 F - Labs CBC & Chem 7: 08/05/20 Unknown 08/03/20 04:00 Labs: Abnormal lab results 08/04/20 08/04/20 08/05/20 Range/Units 18:11 23:23 11:59 WBC (4.5-11.0) K/mm3 RBC (3.65-5.03) M/mm3 Hgb (11.8-15.2) gm/dl Hct (35.5-45.6) % RDW (13.2-15.2) % POC Glucose 117 H 112 H 122 H (70-105) mg/dL 08/05/20 Range/Units Unknown WBC 22.3 H (4.5-11.0) K/mm3 RBC 2.85 L (3.65-5.03) M/mm3 Hgb 8.5 L (11.8-15.2) gm/dl Hct 25.7 L (35.5-45.6) % RDW 16.0 H (13.2-15.2) % POC Glucose (70-105) mg/dL
[2020-08-05] MEDS: ZINC SULFATE 220 MG CAP PO SCH ×2 (13:13→21:49)
[2020-08-05] MEDS: LANSOPRAZOLE 30 MG SOLUTAB FEEDTUBE SCH ×2 (13:13→21:49)
[2020-08-05] MEDS: POLYETHYLENE GLYCOL 3350 17 GM POWDER PO SCH (13:13)
[2020-08-05] MEDS: QUEtiapine 200 MG TAB PO SCH ×2 (13:14→21:50)
[2020-08-05] MEDS: CHOLECALCIFEROL (VIT D3) 1000 UNIT (25 mcg) TAB PO SCH (13:14)
[2020-08-05] MEDS: ASCORBIC ACID 250 MG TAB PO SCH ×2 (13:15→21:49)
[2020-08-05] MEDS: SODIUM HYPOCHLORITE, DAKIN'S 1/2 STRENGTH (0.25%) 473 ML TOPICAL SOLN TP SCH (13:17)
[2020-08-05] MEDS: DOCUSATE SODIUM 100 MG/10 ML ORAL LIQD FEEDTUBE SCH ×2 (13:17→21:49)
[2020-08-05] MEDS: MEROPENEM 1,000 MG in SODIUM CHLORIDE 0.9% 100 ML IV SCH (13:19)
--- NOTE | 2020-08-05 14:53 | Progress Note ---
Assessment and Plan Assessment and plan: -S/p dexamethasone and remdesivir therapy, contact/droplet isolation, vitamin C/vitamin D/zinc, anticoagulation per protocol, trend inflammatory markers -Wean mechanical ventilation as tolerated, VAP bundle -HD per nephrology -Transfuse for hemaglobin less than 7, s/p 10 units PRBC during stay -Nephrology, ID, heme-onc, GI , CCM, cardiology consulted,appreciate recommendations -BCR-ABL mutation testing pending -Per infectious disease: s/p ampicillin. On cefepime, discontinued now on meropenem -Monitor leukocytosis and fevers -s/p RJ to trialysis line exchange over wire 08/02 -Resume systemic anticoagulation and monitor for anemia -Amiodarone for rate control -s/p debridement by Dr. Kirk, WOESPERANZA consulted, WC per nursing, 07/27 debridement repeated -07/22 COVID-19 PCR negative, discontinued contact/droplet isolation DVT prophylaxis: GI prophylaxis, heparin subcu, SCDs to bilateral LE while in b ed Disposition: ICU, ?placement ?trach/peg ?Ltach (awaiting LTAC transfer) The high probability of a clinically significant, sudden or life threatening deterioration of the [multi] system(s) required my full and direct attention, intervention and personal management. The aggregate critical care time was [35] minutes. This time is in addition to time spent performing reported procedures but includes the following: [x] Data Review and interpretation [x] Patient assessment and monitoring of vital signs [x] Documentation [x] Medication orders and management History Interval history: 59-year-old white male who was admitted for pneumonia secondary to Covid with associated respiratory failure and sepsis. Severe septic shock COVID-19 pneumonia Sacral wound, stage 4 Leukemoid reaction Acute metabolic encephalopathy Acute hypoxic respiratory failure Enterococcus bacteremia MDR Pseudomonas in tracheal aspirate Pneumomediastinum Acute kidney injury likely secondary to acute tubular necrosis which progressed to hemodialysis SVT/proximal atrial fibrillation Elevated LFTs Anemia likely due to severe sepsis had declining renal function Morbid obesity Leukocytosis Hypoalbuminemia Sacral decubitus: s/p debridements 06/18: Patient got intubated overnight. Patient was placed on BiPAP to maintain oxygenation with 100% FiO2 but apparently he found to take off his argueta which made his oxygen saturation go down at 60s/50s and patient was found altered mental status. Code met was called immediately. Patient was transferred to ICU and intubated, patient currently on 2 pressors, intubated with 100% FiO2, renal function noted to be decline, nephrology consulted. Discussed with [place] physician Dr. Thompson and requested call back on Saturday. Poor prognosis, continue to monitor with aggressive supportive care. Also called family/ to update clinical status. 06/19: Repeat COVID test was positive. cont cefepime, remdesivir per ID recommendation. follow inflammatory markers, cbc, bmp. placed on heparin drip for atrial fib 06/20: Remains on mechanical ventilation, on 2 pressors, on heparin drip. discussed with and daughter by phone. Renal function declining. cont supportive care for now. 06/21: Renal function cont to decline, urine outpt sig decreased. started on lasix 80mg BID, plan to follow urine output, if no improvement patient need to start on HD. called and daughter today. updated all clinical details 06/22: Renal function continues to decline with uremia and hyperkalemia. Will need to proceed with hemodialysis. Nephrology discussed with the family and they agrees for the hemodialysis. Patient remains on pressor support and mechanical ventilation. Vas-Cath placed today by vascular started on hemodialysis today. 06/23: 2nd round of HD today, remains on 2 pressors. per RN not tolerating TF, has no record of BM since 06/18. start on stool softner. follow cbc/bmp. updated family ( and daughter) by phone -all question answered to best of my knowledge and to their satisfaction. Patient remains critically ill with a very poor prognosis. 06/24: Continue supportive care, Very poor prognosis, Hand Tufter to discuss with family in am due to the futility of the condition. 06/25/2020 continue supportive care very poor prognosis 06/26/2020 continue supportive care very poor prognosis family updated 06/27/2020 continue supportive care and weaning if possible 06/28/2020 continue supportive care, talk with at length 06/29: Resumed care. K level persistently high. give one dose of bicarbonate, plan for HD today, recheck k after HD. updated family by phone 06/30: updated family by phone. Patient remains on amiodarone drip and vasopressin. Getting HD at the bedside. Tolerating tube feeding at low rate. 07/01: Hb dropped to 6.4 today, transfuse one unit PRBC. patient is off pressor today, remains on amioderone. cont to monitor 07/02: Called patient and updated clinical details. Patient remains critically ill, still intubated. Patient's oxygen requirement and PEEP pressure has went down. Continue weaning protocol per critical care recommendation. Patient remains off pressor. Continue to wean off from amiodarone and plan to rate control with p.o. medications. Tolerating tube feeding. H&H stable today. Order for stool for occult blood. Monitor H&H and BMP. Continue to follow clinically 07/03: discussed with [place] physician today. Patient back on 100percent Fio2 since last night. planned for emergent Hd today. spiked fever, start IV Cefepime + Vancomycin renally dosed. Restarted Levophed today, remains on amiodarone drip. Patient family was updated by critical care attending today. 07/04: Patient has hemodialysis yesterday and also plan for today for volume overload and pulmonary edema. Patient currently on 80% FiO2. Remains on Levophed and amiodarone. Hemoglobin dropped to 6.7 without any evidence of active bleeding. LFTs remain stable. Repeat Covid test on 06/30 and 07/03 remains positive. Will transfuse another unit of packed RBC today. Called family for update -explained family that patient is critically ill with very poor prognosis. 07/05: Patient on 70% FiO2 with PEEP of 14. h/h stable after transfusion. hyperkalemia improved, cont sodiumbicarbonate pill with TF. follow BMP. off l evophed today, remains on amioderone. poor prognosis. 07/06: Patient remains on amiodarone drip, maintaining BP without any pressor. FiO2 requirement trended down to 60% with PEEP of 14. Continue to follow clinically. Plan to wean off amiodarone drip as tolerated. Wean off from sedation as tolerated. Updated family. Patient remains critically ill with poor prognosis. 07/07: Called family for update. Off amiodarone drip today, patient also off pressor. FiO2 requirement trended up again to 80-100%. Continue to provide supportive care, monitor clinically. Having difficulty to wean off from the vent support. Patient is persistently positive for COVID-19 and COVID-19 antibody is nonreactive. Patient remains critically ill with very poor prognosis. 07/08: Continue supportive care. Programs Manager radio mechanic apprentice and conference services director input noted. Prognosis remains guarded to poor. Management per team. Critical care time 35-minute 07/09/20 patient is tachycardic. Heart rate 121. Hemoglobin 7.3. Patient is having hemodialysis. Continue supportive care. Patient having difficulty to wean off from the vent support. Prognosis is poor. Nephrology and cardiology follow-up. Recheck CBC BMP in the morning. Continue current management. 07/10/20 patient seen and examined, remains on full ventilator patient is doing better. Patient is off pressor. heart rate 123. Hemoglobin 6.8 and hematocrit 20.7. WBC is 18.1. Continue supportive care. Patient having difficulty to wean off from the vent support. We will started on Zosyn 4.5 g IV every 8 hours. Will transfuse 1 unit of packed red blood cell. Prognosis is poor. Nephrology and cardiology follow up. Recheck CBC BMP in the morning 07/11: remains off vasopressor, h/h appropriately responded to 1 unit PRBC. HD today. Remain on MV with fiO2 at 70%. peep 10. No acute events reported overnight. 3: Patient remains in atrial fibrillation on the manager monitoring, vasopressor support with Levophed and vasopressin, sedated with fentanyl and propofol. Vent settings: CMV 500/25/14/0.60. Patient remains hypercarbic on ABG 07/13: Patient remains on vasopressin, fentanyl and propofol with rectal tube in place. This morning some examination patient was on assist control 25/500/14/0.60. Patient received hemodialysis today. No acute events reported overnight. 07/14: Remains on vasopressin, fentanyl and propofol with tube in place. Rectal tube in place with noted blood clots, GI consulted, on 07/13 H/H dropped from 8.7/27 to 7.4/22 and anticoagulation discontinued. This morning I spoke to his who still wishes for the patient to remain a full code despite update with continued use of vasopressor (vasopressin), current ventilatory support (CMV 500/25/14/0.60) and recent development of rectal bleeding. Patient's family requests an update from [facility] and GI. Cardio changed amio from PO to IV given elevated HR 07/15: Today the patient received a total of 5 units of PRBC and is still having bleeding through his rectal tube. CTA abdomen/pelvis is pending, patient remains on Levophed, fentanyl, propofol, vasopressin and received hemodialysis today. He was also hyperkalemic today to 6 and he received insulin and D50. E xtensive conversation with family conducted by CCM and hospitalist and his and 2 daughters did visit him today at the bedside. 07/16: Continues with full ventilatory support. FMS still inplace with some loose bloody stool. Still on multiple pressors, Bilateral swollen and generalized anascara. Monitor H/H and transfuse as needed. Monitor K level. Discussed with family at bedside yesterday. 07/17: Continue supportive care, transfusion blood possible in am with HD, continue abx, very poor prognosis, blood pressure still labile. Discussed with nurse at bedside 07/18: CTA abdomen/pelvis completed, antibiotics changed to Zosyn per infectious disease, remains on mechanical ventilation 450/25/12/0.55 continue amiodarone drip for 24 more hours, blood culture grew Enterococcus. Remains sedated on propofol and fentanyl. Not on vasopressor support today 07/19: No acute events reported overnight, remains sedated with fentanyl and propofol and off vasopressor therapy today. 07/20: s/p debridement with surgery today, remains on fentanyl, propofol, Levophed and current vent settings 450/25/10/0.45. Patient will be transferred to a bariatric bed once available. 07/21: Continue current management, wean ventilator as tolerated, IV antibiotics deescalated to ampicillin. Per infectious disease no need to exchange/remove lines unless repeat blood cultures turn positive. The time my examination p atient was sedated on fentanyl and propofol and remains off vasopressor support. 07/22: At the time my examination patient is sedated on fentanyl and propofol and remains off vasopressor support, repeat COVID-19 PCR negative. Patient remains on ampicillin. H/H remained stable and GI has signed off. Mechanical ventilation weaning as tolerated. 07/23. He remains sedated on fentanyl and propofol. On mechanical ventilation. On levophed. repeat COVID-19 PCR negative. Patient remains on ampicillin. H/H remained stable and GI has signed off. 07/24. He remains sedated and on mechanical ventilation. On levophed. repeat COVID-19 PCR negative. On ampicillin. ID recs appreciated. Labs reviewed 07/25: Patient remains sedated on fentanyl and Diprivan and remains on mechanical ventilation. Repeat CXR and still has leukocytosis. Patient is n.p.o. for trach and PEG with surgery. 07/26: Remains sedated on fentanyl and propofol. Remains on vasopressor support with Levophed. Current vent settings CMV 450/20/8/0.40. Patient is scheduled for PEG/trach with surgery. No acute events reported overnight. 07/27: Debridement with surgery to sacrum:, Activity restarted, remains sedated on propofol/fentanyl and Precedex support with Levophed. Current vent settings CMV 450/20/8/135. S/p trach/PEG with surgery 07/26. Patient remains afebrile however leukocytosis slightly worse today and he is still on his ampicillin. Patient was hypoglycemic overnight. 07/28: Patient remains sedated on propofol and fentanyl. Continue amiodarone drip for rate control. Patient be started on pressors of Levophed last evening. Patient currently with PSV/CPAP FiO2 35% PEEP of 8 and pressure support of 20. Wean mechanical ventilation as tolerated, VAP bundle. Continue hemodialysis per nephrology recommendations. Continue antibiotics per ID recommendations. Hold systemic anticoagulation in the setting of severe anemia. Patient with status post debridement on 07/27. 07/29: Continue sedation per pulmonary. Amiodarone drip for rate control. Continue vasopressors to maintain MAP > 65. Mechanical ventilation currently AC mode rate of 20 tidal volume 450, FiO2 35% and PEEP of 8. Wean mechanical ventilation as tolerated, VAP bundle. Continue hemodialysis per nephrology recommendations. Continue antibiotics per ID recommendations until 08/01/2020. Repeat blood cultures have been negative. Hold systemic anticoagulation in the setting of severe anemia. 07/30: Patient currently with AC mode rate of 14, tidal volume 450, FiO2 40% and PEEP of 8. Wean mechanical ventilation as tolerated, VAP bundle. Continue hemodialysis per nephrology recommendations. Continue antibiotics per ID recommendations. Hold systemic anticoagulation in the setting of severe anemia. 07/31: Patient currently with AC mode ventilation rate 30, tidal volume 450 FiO2 100%, pressure support 16 and PEEP of 8. Wean mechanical ventilation as tolerated, VAP bundle. Continue hemodialysis per nephrology recommendations. Continue antibiotics per ID recommendations. Patient currently on ampicillin. Hold systemic anticoagulation in the setting of severe anemia. Continue restraints for safety. Continue pressors to maintain MAP > 65. Awaiting family decision to discharge to LTAC. 08/01: If patient develops worsening sepsis ID would like to initiate vancomycin and cefepime, and [facility] would like to add vasopressin. The time my examination patient is on assist control 450/30/8/.60 with an ABG of 7.3/42/111/21 with a base excess of -4. Patient remains sedated on propofol and fentanyl with vaso pressor support with Levophed. No acute events reported overnight. Per vascular surgery if patient's blood cultures are positive will consider a Vas-Cath exchange on a clean wire with ChloraPrep during the exchange and attempt to decrease bioburden. No acute events reported overnight. Patient's H/H today was 6.8/20.5 and he will receive 1 unit PRBC and we will recheck CBC in the a.m. and transfuse as needed. 08/02: Right IJ dialysis catheter changed over wire, per [facility] ok to transfer to LTAC after next HD session and ID started cefepime. The time my examination patient remains on vasopressin and Levophed. Remains on assist control 450/30/H/0.60 with a T-max of 100.7 overnight. His sputum is growing GNR. 08/03: Tracheal aspirate from 08/03 shows heavy growth of gram-negative rods and patient is on cefepime. His IJ IVC was changed over wire to IJ dialysis yesterday. Patient remains on assist control 450/30/8/0.40 and sedated on propofol and fentanyl and the vasopressor support with Levophed. Patient received hemodialysis today. Patient remains in atrial flutter however his heart rate 110s and cardiology is aware. 08/04: At the time my examination patient was on vasopressin at 0.03 units and sedated with fentanyl and propofol. Current vent settings 450/25/8/0.40 and his rate was decreased per [facility]. RT to obtain ABG tonight. [facility] has restarted the patient on heparin subcu and we will monitor for bleeding. Patient is awaiting LTAC transfer. Infectious disease has started the patient on meropenem renally adjusted due to MDR Pseudomonas. Patient is status post debridement with surgery yesterday 08/05: The time of examination patient was on Levophed at 4 MCG, sedated on p ropofol and fentanyl and on assist control 450/20/8/0.40. Patient will be dialyzed today as he is on Saturday HD patient. We are still awaiting LTAC placement. No acute events reported overnight. Patient still remains on renally dosed antibiotic therapy. Hospitalist Physical - Physical exam Narrative exam: General appearance: Present: mild distress, well-nourished - EENT ENT: ulcerations - Respiratory Respiratory effort: normal Respiratory: bilateral: diminished - Cardiovascular Rhythm: regular Heart Sounds: Present: S1 & S2. Absent: systolic murmur, diastolic murmur - Extremities Extremities: no ischemia, pulses intact, pulses symmetrical, normal color Peripheral Pulses: within normal limits - Abdominal General gastrointestinal: soft, non-tender, non-distended, normal bowel sounds - Integumentary Integumentary: Present: dry, edema - Psychiatric Psychiatric: other (sedated) - Neurologic Neurologic: other (sedated) - Constitutional Vitals: Temp Pulse Resp BP Pulse Ox 99.1 F 111 H 22 121/70 99 08/05/20 12:12 08/05/20 14:30 08/05/20 14:30 08/05/20 14:30 08/05/20 14:30 General appearance: Present: no acute distress, well-nourished, other (Patient remains on mechanical ventilation) HEART Score - HEART Score Troponin: Troponin T < 0.010 ng/mL (0.00-0.029) 06/17/20 12:33 Results - Labs CBC & Chem 7: 08/05/20 Unknown 08/03/20 04:00 Labs: Laboratory Last Values WBC 22.3 K/mm3 (4.5-11.0) H 08/05/20 Unknown RBC 2.85 M/mm3 (3.65-5.03) L 08/05/20 Unknown Hgb 8.5 gm/dl (11.8-15.2) L 08/05/20 Unknown Hct 25.7 % (35.5-45.6) L 08/05/20 Unknown MCV 90 fl (84-94) 08/05/20 Unknown MCH 30 pg (28-32) 08/05/20 Unknown MCHC 33 % (32-34) 08/05/20 Unknown RDW 16.0 % (13.2-15.2) H 08/05/20 Unknown Plt Count 276 K/mm3 (140-440) 08/05/20 Unknown Lymph % (Auto) 3.2 % (13.4-35.0) L 07/29/20 04:39 Craven % (Auto) 7.0 % (0.0-7.3) 07/29/20 04:39 Eos % (Auto) 2.1 % (0.0-4.3) 07/29/20 04:39 Baso % (Auto) 1.2 % (0.0-1.8) 07/29/20 04:39 Lymph # (Auto) 1.2 K/mm3 (1.2-5.4) 07/29/20 04:39 Craven # (Auto) 2.7 K/mm3 (0.0-0.8) H 07/29/20 04:39 Eos # (Auto) 0.8 K/mm3 (0.0-0.4) H 07/29/20 04:39 Baso # (Auto) 0.4 K/mm3 (0.0-0.1) H 07/29/20 04:39 Add Manual Diff Complete 07/31/20 09:00 Total Counted 100 07/31/20 09:00 Seg Neutrophils % 86.5 % (40.0-70.0) H 07/29/20 04:39 Seg Neuts % (Manual) 85.0 % (40.0-70.0) H 07/31/20 09:00 Band Neutrophils % 8.0 % 07/31/20 09:00 Lymphocytes % (Manual) 1.0 % (13.4-35.0) L 07/31/20 09:00 Reactive Lymphs % (Man) 1.0 % 06/23/20 04:00 Monocytes % (Manual) 6.0 % (0.0-7.3) 07/31/20 09:00 Eosinophils % (Manual) 4.0 % (0.0-4.3) 07/27/20 04:00 Basophils % (Manual) 1.0 % (0.0-1.8) 07/27/20 04:00 Metamyelocytes % 1.0 % 07/26/20 Unknown Myelocytes % 1.0 % 07/25/20 05:39 Promyelocytes % 0 % 07/17/20 15:25 Nucleated RBC % 1.0 % (0.0-0.9) H 07/31/20 09:00 Seg Neutrophils # 33.4 K/mm3 (1.8-7.7) H 07/29/20 04:39 Seg Neutrophils # Man 26.2 K/mm3 (1.8-7.7) H 07/31/20 09:00 Band Neutrophils # 2.5 K/mm3 07/31/20 09:00 Lymphocytes # (Manual) 0.3 K/mm3 (1.2-5.4) L 07/31/20 09:00 Abs React Lymphs (Man) 0.0 K/mm3 07/31/20 09:00 Monocytes # (Manual) 1.8 K/mm3 (0.0-0.8) H 07/31/20 09:00 Eosinophils # (Manual) 0.0 K/mm3 (0.0-0.4) 07/31/20 09:00 Basophils # (Manual) 0.0 K/mm3 (0.0-0.1) 07/31/20 09:00 Metamyelocytes # 0.0 K/mm3 07/31/20 09:00 Myelocytes # 0.0 K/mm3 07/31/20 09:00 Promyelocytes # 0.0 K/mm3 07/31/20 09:00 Blast Cells # 0.0 K/mm3 07/31/20 09:00 Pathologist Review 07/17/20 15:25 WBC Morphology Not Reportable 07/31/20 09:00 Hypersegmented Neuts Not Reportable 07/31/20 09:00 Hyposegmented Neuts Not Reportable 07/31/20 09:00 Hypogranular Neuts Not Reportable 07/31/20 09:00 Smudge Cells Not Reportable 07/31/20 09:00 Toxic Granulation Not Reportable 07/31/20 09:00 Toxic Vacuolation Not Reportable 07/31/20 09:00 Dohle Bodies Not Reportable 07/31/20 09:00 Pelger-Huet Anomaly Not Reportable 07/31/20 09:00 Carlito Rods Not Reportable 07/31/20 09:00 Platelet Estimate Consistent w auto 07/31/20 09:00 Clumped Platelets Not Reportable 07/31/20 09:00 Plt Clumps, EDTA Not Reportable 07/31/20 09:00 Large Platelets Not Reportable 07/31/20 09:00 Giant Platelets Not Reportable 07/31/20 09:00 Platelet Satelliting Not Reportable 07/31/20 09:00 Plt Morphology Comment Not Reportable 07/31/20 09:00 RBC Morphology Not Reportable 07/31/20 09:00 Dimorphic RBCs Not Reportable 07/31/20 09:00 Polychromasia Not Reportable 07/31/20 09:00 Hypochromasia Not Reportable 07/31/20 09:00 Poikilocytosis Not Reportable 07/31/20 09:00 Anisocytosis 1+ 07/31/20 09:00 Microcytosis Not Reportable 07/31/20 09:00 Macrocytosis Not Reportable 07/31/20 09:00 Spherocytes Not Reportable 07/31/20 09:00 Pappenheimer Bodies Not Reportable 07/31/20 09:00 Sickle Cells Not Reportable 07/31/20 09:00 Target Cells Not Reportable 07/31/20 09:00 Tear Drop Cells Not Reportable 07/31/20 09:00 Ovalocytes Not Reportable 07/31/20 09:00 Stomatocytes Few 07/27/20 04:00 Helmet Cells Not Reportable 07/31/20 09:00 Brothers-Quinwood Bodies Not Reportable 07/31/20 09:00 Vermillion Rings Not Reportable 07/31/20 09:00 Canones Cells Not Reportable 07/31/20 09:00 Bite Cells Not Reportable 07/31/20 09:00 Crenated Cell Not Reportable 07/31/20 09:00 Elliptocytes Not Reportable 07/31/20 09:00 Acanthocytes (Spur) Not Reportable 07/31/20 09:00 Rouleaux Not Reportable 07/31/20 09:00 Hemoglobin C Crystals Not Reportable 07/31/20 09:00 Schistocytes Not Reportable 07/31/20 09:00 Malaria parasites Not Reportable 07/31/20 09:00 Victoriano Bodies Not Reportable 07/31/20 09:00 Hem Pathologist Commnt No 07/31/20 09:00 PT 15.3 Sec. (12.2-14.9) H 07/24/20 20:40 INR 1.21 (0.87-1.13) H 07/24/20 20:40 APTT 36.1 Sec. (24.2-36.6) 07/24/20 20:40 Fibrinogen 419 mg/dl (211-480) 07/15/20 08:21 D-Dimer 6608.00 ng/mlDDU (0-234) H 07/03/20 14:50 Heparin Anti-Xa Level < 0.10 U.I./ml (0.3-0.7) L 06/26/20 01:30 ABG pH 7.342 (7.320-7.450) 08/03/20 21:00 POC ABG pCO2 48.3 mmHg (32.0-48.0) H 08/03/20 21:00 ABG pCO2 44.4 mm Hg 07/28/20 14:31 POC ABG pO2 67.6 mmHg (83-108) L 08/03/20 21:00 ABG pO2 68.0 mm Hg (80.0-90.0) L 07/28/20 14:31 POC ABG HCO3 25.6 08/03/20 21:00 ABG HCO3 23.1 mmol/L (20.0-26.0) 07/28/20 14:31 ABG O2 Saturation 93.5 (0-100) 08/03/20 21:00 ABG O2 Content 11.4 (0.0-44) 07/28/20 14:31 POC ABG Base Excess -0.4 08/03/20 21:00 ABG Base Excess -2.7 mmol/L (-2.0-3.0) L 07/28/20 14:31 ABG Hemoglobin 9.8 (12.0-17.5) L 08/03/20 21:00 ABG Oxyhemoglobin 92.2 (94-98) L 08/03/20 21:00 ABG Carboxyhemoglobin 2.2 % (0.0-5.0) 07/28/20 14:31 ABG Methemoglobin 0.3 (0.0-1.5) 08/03/20 21:00 ABG Sodium 133.5 mmol/L (136.0-145.0) L 08/03/20 21:00 ABG Potassium 3.5 mmol/L (3.40-4.50) 08/03/20 21:00 ABG Chloride 101.0 mmol/L (98-107) 08/03/20 21:00 ABG Glucose 115 mg/dL (65-95) H 08/03/20 21:00 Oxyhemoglobin 89.9 % (95.0-99.0) L 07/28/20 14:31 Carboxyhemoglobin 1.1 (0.5-1.5) 08/03/20 21:00 FiO2 35 % 07/28/20 14:31 FiO2 % 40.0 08/03/20 21:00 Sodium 134 mmol/L (137-145) L 08/03/20 04:00 Potassium 3.7 mmol/L (3.6-5.0) 08/03/20 04:00 Chloride 97.3 mmol/L (98-107) L 08/03/20 04:00 Carbon Dioxide 23 mmol/L (22-30) 08/03/20 04:00 Anion Gap 17 mmol/L 08/03/20 04:00 BUN 70 mg/dL (9-20) H 08/03/20 04:00 Creatinine 2.6 mg/dL (0.8-1.3) H 08/03/20 04:00 Estimated GFR 30 ml/min 08/03/20 04:00 BUN/Creatinine Ratio 27 % 08/03/20 04:00 Glucose 102 mg/dL (75-100) H 08/03/20 04:00 POC Glucose 122 mg/dL (70-105) H 08/05/20 11:59 Lactic Acid 0.90 mmol/L (0.7-2.0) 07/23/20 Unknown Calcium 8.1 mg/dL (8.4-10.2) L 08/03/20 04:00 Phosphorus 9.40 mg/dL (2.5-4.5) H 06/30/20 03:50 Magnesium 2.70 mg/dL (1.7-2.3) H 06/18/20 20:33 Ferritin 1171.0 ng/mL (30.0-300.0) H 07/03/20 14:50 Total Bilirubin 0.20 mg/dL (0.1-1.2) 07/24/20 06:40 Direct Bilirubin 0.5 mg/dL (0-0.2) H 07/05/20 08:21 Indirect Bilirubin 0.1 mg/dL 07/05/20 08:21 AST 46 units/L (5-40) H 07/24/20 06:40 ALT 74 units/L (7-56) H 07/24/20 06:40 Alkaline Phosphatase 180 units/L (35-129) H 07/24/20 06:40 Lactate Dehydrogenase 525 units/L (91-180) H 07/03/20 14:50 Total Creatine Kinase 618 units/L (55-170) H 06/29/20 Unknown Troponin T < 0.010 ng/mL (0.00-0.029) 06/17/20 12:33 C-Reactive Protein 31.50 mg/dL (0.00-1.30) H 07/03/20 14:50 Total Protein 4.6 g/dL (6.3-8.2) L 07/24/20 06:40 Albumin 2.0 g/dL (3.9-5) L 07/24/20 06:40 Albumin/Globulin Ratio 0.8 % 07/24/20 06:40 Triglycerides 262 mg/dL (2-149) H 08/04/20 05:00 Procalcitonin 6.05 ng/mL (<0.15) 07/13/20 06:59 Arterial Blood Glucose 115 mg/dL (65-95) H 08/03/20 21:00 Arterial Blood Ionized Calcium 4.5 mg/dL (4.6-5.3) L 08/03/20 21:00 Urine Color Yellow (Yellow) 06/17/20 15:57 Urine Turbidity Clear (Clear) 06/17/20 15:57 Urine pH 6.0 (5.0-7.0) 06/17/20 15:57 Ur Specific [place] 1.019 (1.003-1.030) 06/17/20 15:57 Urine Protein 30 mg/dl mg/dL (Negative) 06/17/20 15:57 Urine Glucose (UA) Neg mg/dL (Negative) 06/17/20 15:57 Urine Ketones Neg mg/dL (Negative) 06/17/20 15:57 Urine Blood Sm (Negative) 06/17/20 15:57 Urine Nitrite Neg (Negative) 06/17/20 15:57 Ur Reducing Substances Not Reportable 06/17/20 15:57 Urine Bilirubin Neg (Negative) 06/17/20 15:57 Urine Ictotest Not Reportable 06/17/20 15:57 Urine Urobilinogen < 2.0 mg/dL (<2.0) 06/17/20 15:57 Ur Leukocyte Esterase Neg (Negative) 06/17/20 15:57 Urine WBC (Auto) 1.0 /HPF (0.0-6.0) 06/17/20 15:57 Urine RBC (Auto) 2.0 /HPF (0.0-6.0) 06/17/20 15:57 Urine Mucus Few /HPF 06/17/20 15:57 Urine Creatinine 192.4 mg/dL (0.1-20.0) H 06/18/20 15:00 Urine Sodium 28 mmol/L 06/18/20 15:00 Urine Chloride 31.1 mmolL (110-250) L 06/18/20 15:00 Nasal Screen MRSA (PCR) Negative (Negative) 06/19/20 10:38 Vancomycin Trough 22.7 ug/mL (5.0-20.0) H 06/20/20 08:25 Random Vancomycin 13.5 ug/mL (0-40.0) 07/16/20 07:17 Coronavirus (PCR) Negative (Negative) 07/22/20 Unknown Hepatitis A IgM Ab Non-reactive (NonReactive) 06/22/20 17:00 Hep Bs Antigen Non-reactive (Negative) 06/22/20 17:00 Hep B Core IgM Ab Non-reactive (NonReactive) 06/22/20 17:00 Hepatitis C Antibody Non-reactive (NonReactive) 06/22/20 17:00 SARS-CoV-2 IgG Ab Nonreactive (NonReactive) 07/04/20 05:20 Blood Type A POSITIVE 07/30/20 23:13 Antibody Screen Negative 07/30/20 23:13 Crossmatch See Detail 07/30/20 23:13 Microbiology: Microbiology 07/31/20 16:16 Peripheral/Venous Blood Culture - Preliminary NO GROWTH AFTER 4 DAYS 07/31/20 16:15 Peripheral/Venous Blood Culture - Preliminary NO GROWTH AFTER 4 DAYS 08/01/20 08:15 Tracheal Aspirate Sputum Culture - Final Pseudomonas Aeruginosa - Diagnostic Impressions Diagnostic Impressions: Echocardiogram 06/29/20 06:00 Transthoracic Echocardiogram Indication: A-fib BP: 105/47 HR: 99 Conclusions *The study is technically very difficult and limited due to poor acoustic windows. *Global left ventricular wall motion and contractility are within normal limits. *The estimated ejection fraction is 55-60%. *There is no pericardial effusion. Findings Procedure Info: The study quality is technically difficult. The study is technically limited due to poor acoustic windows. Left Ventricle: Global left ventricular wall motion and contractility are within normal limits. Global left ventricular systolic function is normal. The estimated ejection fraction is 55-60%. Left Atrium: The left atrium is not well visualized. Right Ventricle: The right ventricle is not well visualized. Right Atrium: The right atrium is not well visualized. Aortic Valve: The aortic valve is not well visualized. Mitral Valve: The mitral valve is not well visualized. Tricuspid Valve: The tricuspid valve is not well visualized. Pulmonic Valve: The pulmonic valve is not well visualized. Pericardium: There is no pericardial effusion. Venous: There is no change in the dimension of the inferior vena cava with respiration consistent with markedly increased right atrial pressure. Newell/IV: Voiding Method Incontinent Active Medications - Current Medications Current Medications: Generic Name Dose Route Start Last Admin Trade Name Freq PRN Reason Stop Dose Admin Acetaminophen 650 mg 06/17/20 14:17 08/02/20 06:00 Acetaminophen 325 Mg Tab PO 650 mg Q4H PRN Administration Pain MILD(1-3)/Fever >100.5/ROBERTS Albuterol 2.5 mg 07/19/20 12:15 Albuterol 2.5 Mg/3 Ml Nebu IH Q6HRT PRN Shortness Of Breath Alteplase, Recombinant 2 mg 07/27/20 18:40 Alteplase 2 Mg Inj IV PAM PRN LINE FLUSH Amiodarone HCl 200 mg 07/19/20 14:00 08/05/20 09:48 Amiodarone 200 Mg Tab PO 200 mg BID CONNOR Administration Lipase/Protease/Amylase 1 each 06/19/20 12:15 Lipase 10,500/Protease 25,000/Amylase 43,750 (Units) Dr Kulkarni FEEDTUBE PRN PRN For Clogged Feeding Tube Ascorbic Acid 250 mg 06/17/20 22:00 08/05/20 13:15 Ascorbic Acid 250 Mg Tab PO 250 mg BID CONNOR Administration Cholecalciferol 1,000 unit 06/18/20 10:00 08/05/20 13:14 Cholecalciferol (Vit D3) 1000 Unit (25 Mcg) Tab PO 1,000 unit DAILY CONNOR Administration Dextrose 50 ml 07/26/20 22:00 07/27/20 06:42 Dextrose 50% In Water (25gm) 50 Ml Syringe IV 50 ml Q30MIN PRN Administration Hypoglycemia Protocol Docusate Sodium 100 mg 06/23/20 15:00 08/05/20 13:17 Docusate Sodium 100 Mg/10 Ml Oral Liqd FEEDTUBE 100 mg BID CONNOR Administration Fentanyl 50 mcg 06/18/20 01:02 07/27/20 16:59 Fentanyl 100 Mcg/2 Ml Inj IV 50 mcg Q10MIN PRN Administration ANALGESIA Heparin Sodium (Porcine) 5,000 unit 06/22/20 12:53 07/28/20 20:45 Heparin 10,000 Unit/1 Ml Vial IV 5,000 unit PAM PRN Administration hemodialysis Hydrophilic Ointment 1 applic 06/17/20 22:52 07/12/20 20:22 Lip Therapy Vaseline TP 1 applic Q2HR PRN Administration Dry Lips Propofol 1,000 mg in 100 mls @ 3.402 mls/hr 06/18/20 01:00 08/05/20 12:10 Diprivan 10 Mg/Ml IV 20 mcg/kg/min TITR CONNOR 13.608 mls/hr Administration Protocol 5 MCG/KG/MIN Fentanyl Citrate 2,000 mcg in 100 mls @ 8 mls/hr 06/18/20 02:00 08/05/20 09:45 Fentanyl Drip Premix IV 4 mcg/kg/hr TITR CONNOR 32 mls/hr Administration Protocol 1 MCG/KG/HR Norepinephrine 4 mg in 250 mls @ 7.5 mls/hr 07/08/20 02:06 08/05/20 08:46 Levophed Drip 4 Mg/Ns 250 Ml IV 2 mcg/min TITR CONNOR 7.5 mls/hr Administration Protocol 2 MCG/MIN Vasopressin 20 unit/ Sodium 101 mls @ 9.09 mls/hr 07/11/20 11:00 08/04/20 11:43 Chloride IV 0 units/min TITR CONNOR 0 mls/hr Titration Protocol 0.03 UNITS/MIN Amiodarone HCl 900 mg/ 500 mls @ 33.333 mls/hr 07/27/20 17:00 07/31/20 17:58 Dextrose IV 0.5 mg/min DIRECT CONNOR 16.667 mls/hr Administration Protocol 1 MG/MIN Sodium Chloride 100 mls @ 999 mls/hr 07/27/20 18:40 Nacl 0.9% IV PAM PRN Hypotension Meropenem 1,000 mg/ Sodium 100 mls @ 100 mls/hr 08/04/20 12:00 08/05/20 13:19 Chloride IV 08/13/20 10:59 100 mls/hr Q24HR CONNOR Administration Protocol Insulin Human Regular 0 units 06/18/20 12:00 08/05/20 14:35 Insulin Regular, Human 100 Units/1 Ml SUB-Q Not Given Q6HR CONNOR Protocol Lansoprazole 30 mg 08/05/20 11:00 08/05/20 13:13 Lansoprazole 30 Mg Solutab FEEDTUBE 30 mg BID CONNOR Administration Midodrine 10 mg 08/03/20 14:00 08/05/20 13:13 Midodrine 5 Mg Tab PO 10 mg TID CONNOR Administration Multi-Ingred Cream/Lotion/Oil/Oint 1 applic 06/17/20 22:52 07/12/20 20:22 Mineral Oil/Petrolatum, White Ophth Oint 3.5 Gm OU 1 applic Q4HR PRN Administration Dry Eye(s) Ondansetron HCl 4 mg 06/17/20 14:17 Ondansetron 4 Mg/2 Ml Inj IV Q8H PRN Nausea And Vomiting Polyethylene Glycol 17 gm 06/23/20 15:00 08/05/20 13:13 Polyethylene Glycol 3350 17 Gm Powder PO 17 gm QDAY CONNOR Administration Quetiapine Fumarate 200 mg 06/28/20 13:00 08/05/20 13:14 Quetiapine 200 Mg Tab PO 200 mg BID CONNOR Administration Scopolamine 1 each 07/29/20 14:00 08/04/20 09:27 Scopolamine Transdermal Patch 72 Hr TD 1 each Q3D CONNOR Administration Simple Syrup 15 ml 06/19/20 12:15 07/26/20 13:55 Simple Syrup 15 Ml FEEDTUBE 15 ml PRN PRN Administration Hypoglycemia Simple Syrup 30 ml 06/19/20 12:15 07/19/20 06:04 Simple Syrup 15 Ml FEEDTUBE 30 ml PRN PRN Administration Hypoglycemia Sodium Bicarbonate 325 mg 06/19/20 12:15 07/11/20 20:00 Sodium Bicarbonate 325 Mg Tab FEEDTUBE 325 mg PRN PRN Administration For Clogged Feeding Tube Sodium Chloride 10 ml 06/17/20 22:00 08/05/20 13:19 Sodium Chloride 0.9% 10 Ml Flush Syringe IV 10 ml BID CONNOR Administration Sodium Chloride 10 ml 06/17/20 14:17 07/30/20 09:46 Sodium Chloride 0.9% 10 Ml Flush Syringe IV 10 ml PRN PRN Administration LINE FLUSH Sodium Hypochlorite 1 applic 07/20/20 10:00 08/05/20 13:17 Sodium Hypochlorite, Dakin's 1/2 Strength (0.25%) 473 Ml Topical Soln TP 1 applicatio BID CONNOR Administration Zinc Sulfate 220 mg 06/17/20 22:00 08/05/20 13:13 Zinc Sulfate 220 Mg Cap PO 220 mg BID CONNOR Administration Nutrition/Malnutrition Assess - Dietary Evaluation Nutrition/Malnutrition Findings: Nutrition Notes Start: 06/18/20 10:28 Freq: Status: Active Protocol: Document 08/04/20 10:43 REBECCA (Rec: 08/04/20 10:52 [facility] [id number]) Nutrition Notes Initial or Follow up Brief Note Current Diet Nepro at 55ml/hr Labs/Tests TG 262 Height 6 ft Weight 152.6 kg [place] Body Weight (kg) 80.90 BMI 45.6 Subjective/Other Information Pt is s/p debridement of stage 4 pressure ulcer on yesterday . Pt accepted to LT[facility] facility; transfer pending pt' s medical stability. He remains on vent support. Is patient on ventilator? Yes Is Patient Ambulatory and/or Out of Bed No REE-([facility]-confined to bed) 2840.916 Kcal/Kg value to use for calculation 14 Approximate Energy Requirements Using 2136 kcal/Kg Calculation Used for Recommendations Kcal/kg Additional Notes Pro needs: up to 2.5g/kg IBW: up to 202g/day Fluid needs: 1-1.5L/day Nutrition Intervention Follow-Up By: 08/09/20 Additional Comments F/U: stable TF, vent status, pressor support, Gee administration
--- NOTE | 2020-08-05 16:48 | Event Note ---
I updated Alex HALL Anyi at [phone] who collected information to determine unpredictability to transfer to [facility]. She states that she will present this examination to the weight reducing technician and return a call with an updated response.
[2020-08-06] MEDS: ACETAMINOPHEN 325 MG TAB PO PRN (00:07)
[2020-08-06] MEDS: fentaNYL DRIP Premix 2,000 MCG/100 ML BAG IV SCH ×3 (01:25→17:41)
[2020-08-06] MEDS: SODIUM HYPOCHLORITE, DAKIN'S 1/2 STRENGTH (0.25%) 473 ML TOPICAL SOLN TP SCH ×2 (05:24→10:27)
--- NOTE | 2020-08-06 06:56 | XRay Report ---
CHEST 1 VIEW INDICATION: resp failure on MVS COMPARISON: One day prior. FINDINGS: Support devices: Unchanged. Heart: Stable. Lungs/Pleura: Diffuse bilateral lung disease, unchanged. IMPRESSION: 1. No significant change. Signer Name: Enrico Banegas MD Signed: 08/06/2020 6:51 AM Workstation Name: [id number]
[2020-08-06] MEDS: QUEtiapine 200 MG TAB PO SCH (09:33)
[2020-08-06] MEDS: MIDODRINE 5 MG TAB PO SCH ×2 (09:33→13:54)
[2020-08-06] MEDS: DOCUSATE SODIUM 100 MG/10 ML ORAL LIQD FEEDTUBE SCH (09:33)
[2020-08-06] MEDS: LANSOPRAZOLE 30 MG SOLUTAB FEEDTUBE SCH (09:34)
[2020-08-06] MEDS: ZINC SULFATE 220 MG CAP PO SCH (09:34)
[2020-08-06] MEDS: ASCORBIC ACID 250 MG TAB PO SCH (09:34)
[2020-08-06] MEDS: AMIODARONE 200 MG TAB PO SCH (09:34)
[2020-08-06] MEDS: POLYETHYLENE GLYCOL 3350 17 GM POWDER PO SCH (09:34)
[2020-08-06] MEDS: INSULIN REGULAR, HUMAN 100 UNITS/1 ML SUB-Q SCH ×3 (09:34→13:54)
[2020-08-06] MEDS: CHOLECALCIFEROL (VIT D3) 1000 UNIT (25 mcg) TAB PO SCH (09:34)
[2020-08-06] MEDS: MEROPENEM 1,000 MG in SODIUM CHLORIDE 0.9% 100 ML IV SCH (09:38)
--- NOTE | 2020-08-06 10:55 | Progress Note ---
Assessment and Plan Acute hypoxemic respiratory failure due to COVID-19 Severe COVID infection Severe Sepsis with shock Bilateral pneumonia Acute kidney injury (GIRISH) with acute tubular necrosis (ATN) on HD Elevated liver enzymes Obesity Sacral decubitus ulcer Continue to titrate supplemental oxygen to keep O2 sats>90% Continue to monitor hemodynamics closely. Vasopressor support as needed to keep MAP>65 Continue Meropenem for MDRO Pseudomonas to complete course, ID following No chemical VTE prophylaxis secondary recurrent episodes of rectal bleeding , has required supportive transfusions. SCDs for now OK to transfer LTACH transfer once a bed is available Mobility, off loading and frequent turning per facility protocol to prevent further deterioration of sacral decubitus. Wound care -VAP bundle addressed, aspiration precautions HOB >40 - continue lung protective strategies - continue bronchodilators with pulmonary hygiene per RT - continue tube feeds as tolerated - continue HD/UF per nephrology team for toxin and volume clearance - accuchecks with glycemic control per SSI (While critically ill target blood glucose of 140-180 mg/dL; avoid hypoglycemia) - sedation for target RASS -1 to -2 - continue enteral nutritional support at goal rate as tolerated - Avoid nephrotoxins, renally dose all medications, conservative fluid management - continue to avoid benzodiazepines, reduce the possibility of delirium, - prn analgesia per CPOT score - Maintenance of sleep-wake cycle, avoid delirium - Stress ulcer prophylaxis, Famotidine - PT/OT/ROM exercises - Mobility protocols for pressure ulcer prevention - Supportive transfusions to keep HgB >7g/dL - Monitor hemodynamics closely - continue other care per attending / other consultants COVID SPECIFIC INTERVENTIONS - s/p Dexamethasone - s/p Remdesivir -s/p Critical care proning CONDITION: CRITICAL PROGNOSIS: GUARDED CODE STATUS: FULL CODE The high probability of a clinically significant, sudden or life-threatening deterioration of the [respiratory, cardiovascular, hematologic & neurologic] system(s) required my full and direct attention, intervention and personal management. The aggregate critical care time was [32] minutes without overlap. Time includes spent on; [x] Data Review and interpretation [x] Patient assessment and monitoring of vital signs [x] Documentation [x] Medication orders and management Subjective Date of service: 08/06/20 Principal diagnosis: ARF; Septic Shock; COVID-19 PNA; Atrial fibrillation; Obesity Interval history: Follow up for severe sepsis with septic shock; COVID-ARDS; acute hypoxemic resp failure on MVS: GIRISH/ATN 3/21: Patient currently with AC mode ventilation rate 30, tidal volume 450 FiO2 100%, pressure support 16 and PEEP of 8. Wean mechanical ventilation as tole rated, VAP bundle. Continue hemodialysis per nephrology recommendations. Continue antibiotics per ID recommendations. Patient currently on ampicillin. Hold systemic anticoagulation in the setting of severe anemia. Continue restraints for safety. Continue pressors to maintain MAP > 65. Awaiting family decision to discharge to LTAC. 08/01: If patient develops worsening sepsis ID would like to initiate vancomycin and cefepime, and CCM would like to add vasopressin. The time my examination senthil de la cruz is on assist control 450/30/8/.60 with an ABG of 7.3/42/111/21 with a base excess of -4. Patient remains sedated on propofol and fentanyl with vasopressor support with Levophed. No acute events reported overnight. Per vascular surgery if patient's blood cultures are positive will consider a Vas- Cath exchange on a clean wire with ChloraPrep during the exchange and attempt to decrease bioburden. No acute events reported overnight. Patient's H/H today was 6.8/20.5 and he will receive 1 unit PRBC and we will recheck CBC in the a.m. and transfuse as needed. 08/02: Right IJ dialysis catheter changed over wire, per [facility] ok to transfer to LTAC after next HD session and ID started cefepime. The time my examination patient remains on vasopressin and Levophed. Remains on assist control 450/ 30/H/0.60 with a T-max of 100.7 overnight. His sputum is growing GNR. 08/03: Tracheal aspirate from 08/03 shows heavy growth of gram-negative rods and patient is on cefepime. His IJ IVC was changed over wire to IJ dialysis yesterday. Patient remains on assist control 450/30/8/0.40 and sedated on pr opofol and fentanyl and the vasopressor support with Levophed. Patient received hemodialysis today. Patient remains in atrial flutter however his heart rate 110s and cardiology is aware. 08/04: At the time my examination patient was on vasopressin at 0.03 units and sedated with fentanyl and propofol. Current vent settings 450/25/8/0.40 and his rate was decreased per [facility]. RT to obtain ABG tonight. [facility] has restarted the patient on heparin subcu and we will monitor for bleeding. Patient is awaiting LTAC transfer. Infectious disease has started the patient on meropenem renally adjusted due to MDR Pseudomonas. Patient is status post debridement with surgery yesterday 08/05/2020 Remains critically ill on MVS, currently on Norepinephrine at 2mcg, but on HD with labile BP with episodes of on going hypotension on HD via a RIJ trialysis s/p trach to full MVS,PEEP +8, FIO2 40% 08/06/2020 Remains critically ill on MVS, off Norepinephrine with soft blood pressures s/p trach to full MVS,PEEP +8, FIO2 40%. Diarrhea this morning. No reported fevers. Seen and examined. Vitals, labs, medications, chart reviewed. Discussed with nursing and respiratory staff. Objective Vital Signs - 12hr 08/05/20 08/05/20 08/05/20 23:00 23:15 23:31 Temperature Pulse Rate 131 H 133 H 114 H Respiratory 36 H 38 H 35 H Rate Blood Pressure 154/68 128/55 O2 Sat by Pulse 95 95 96 Oximetry O2 Sat by Pulse Oximetry [ Assessment] 08/05/20 08/05/20 08/05/20 23:34 23:37 23:45 Temperature 102.1 F H Pulse Rate 117 H 109 H Respiratory 33 H Rate Blood Pressure 154/68 117/58 O2 Sat by Pulse 94 98 Oximetry O2 Sat by Pulse Oximetry [ Assessment] 08/06/20 08/06/20 08/06/20 00:00 00:15 00:30 Temperature Pulse Rate 123 H 120 H 118 H Respiratory 31 H 24 26 H Rate Blood Pressure 117/54 121/54 124/57 O2 Sat by Pulse 98 98 98 Oximetry O2 Sat by Pulse Oximetry [ Assessment] 08/06/20 08/06/20 08/06/20 00:45 01:00 01:15 Temperature Pulse Rate 121 H 127 H 110 H Respiratory 26 H 26 H 26 H Rate Blood Pressure 122/57 128/62 127/55 O2 Sat by Pulse 99 99 99 Oximetry O2 Sat by Pulse Oximetry [ Assessment] 08/06/20 08/06/20 08/06/20 01:30 01:45 02:00 Temperature Pulse Rate 116 H 115 H 118 H Respiratory 27 H 27 H 36 H Rate Blood Pressure 114/59 125/61 142/94 O2 Sat by Pulse 99 99 99 Oximetry O2 Sat by Pulse Oximetry [ Assessment] 08/06/20 08/06/20 08/06/20 02:15 02:21 02:30 Temperature Pulse Rate 125 H 126 H 131 H Respiratory 40 H 39 H 37 H Rate Blood Pressure 144/67 145/72 O2 Sat by Pulse 98 97 95 Oximetry O2 Sat by Pulse Oximetry [ Assessment] 08/06/20 08/06/20 08/06/20 02:41 02:51 03:00 Temperature Pulse Rate 117 H 131 H 119 H Respiratory 41 H 41 H 34 H Rate Blood Pressure 148/77 146/45 O2 Sat by Pulse 93 97 95 Oximetry O2 Sat by Pulse Oximetry [ Assessment] 08/06/20 08/06/20 08/06/20 03:03 03:11 03:21 Temperature 101.9 F H Pulse Rate 118 H 125 H Respiratory 39 H 39 H Rate Blood Pressure 142/56 O2 Sat by Pulse 97 97 Oximetry O2 Sat by Pulse Oximetry [ Assessment] 08/06/20 08/06/20 08/06/20 03:31 03:41 03:51 Temperature Pulse Rate 116 H 107 H 125 H Respiratory 37 H 43 H 36 H Rate Blood Pressure 136/58 134/61 O2 Sat by Pulse 96 96 97 Oximetry O2 Sat by Pulse Oximetry [ Assessment] 08/06/20 08/06/20 08/06/20 04:00 04:01 04:11 Temperature Pulse Rate 116 H 114 H 113 H Respiratory 35 H 37 H Rate Blood Pressure 116/55 139/59 O2 Sat by Pulse 91 96 93 Oximetry O2 Sat by Pulse Oximetry [ Assessment] 08/06/20 08/06/20 08/06/20 04:21 04:30 04:45 Temperature Pulse Rate 111 H 130 H 113 H Respiratory 38 H 39 H 28 H Rate Blood Pressure 124/59 121/63 128/56 O2 Sat by Pulse 97 94 93 Oximetry O2 Sat by Pulse Oximetry [ Assessment] 08/06/20 08/06/20 08/06/20 05:00 05:15 05:30 Temperature Pulse Rate 131 H 122 H Respiratory 25 H 20 35 H Rate Blood Pressure 121/63 122/55 116/55 O2 Sat by Pulse 95 100 100 Oximetry O2 Sat by Pulse Oximetry [ Assessment] 08/06/20 08/06/20 08/06/20 05:46 06:00 06:15 Temperature Pulse Rate 105 H 116 H 113 H Respiratory 39 H 33 H 30 H Rate Blood Pressure 114/42 114/50 117/45 O2 Sat by Pulse 86 94 91 Oximetry O2 Sat by Pulse Oximetry [ Assessment] 08/06/20 08/06/20 08/06/20 06:30 06:46 07:00 Temperature Pulse Rate 114 H 117 H 114 H Respiratory 39 H 34 H 21 Rate Blood Pressure 118/53 102/45 95/55 O2 Sat by Pulse 96 87 91 Oximetry O2 Sat by Pulse Oximetry [ Assessment] 08/06/20 08/06/20 08/06/20 07:15 07:30 07:45 Temperature Pulse Rate 126 H 126 H 139 H Respiratory 25 H 24 32 H Rate Blood Pressure 98/59 112/52 111/53 O2 Sat by Pulse 92 90 92 Oximetry O2 Sat by Pulse Oximetry [ Assessment] 08/06/20 08/06/20 08/06/20 08:00 08:15 08:30 Temperature 99.4 F Pulse Rate 133 H 120 H 127 H Respiratory 24 26 H 22 Rate Blood Pressure 116/61 108/47 115/52 O2 Sat by Pulse 91 89 91 Oximetry O2 Sat by Pulse Oximetry [ Assessment] 08/06/20 08/06/20 08/06/20 08:35 08:45 09:00 Temperature Pulse Rate 118 H 133 H 114 H Respiratory 25 H 16 Rate Blood Pressure 115/52 125/45 109/49 O2 Sat by Pulse 93 100 91 Oximetry O2 Sat by Pulse 95 Oximetry [ Assessment] 08/06/20 08/06/20 08/06/20 09:15 09:30 09:45 Temperature Pulse Rate 111 H 110 H 120 H Respiratory 26 H 21 29 H Rate Blood Pressure 103/52 102/51 107/49 O2 Sat by Pulse 93 92 91 Oximetry O2 Sat by Pulse Oximetry [ Assessment] 08/06/20 10:00 Temperature Pulse Rate 117 H Respiratory 22 Rate Blood Pressure 110/53 O2 Sat by Pulse 94 Oximetry O2 Sat by Pulse Oximetry [ Assessment] Constitutional: other (obese, atraumatic, normocephalic, mild resp distress, trach to vent) Eyes: non-icteric ENT: oropharynx moist, other (s/p tracheostomy) Neck: supple, no lymphadenopathy, other (Large , short neck) Effort: mildly labored Ascultation: Bilateral: clear, diminished breath sounds, rales, rhonchi Percussion: Bilateral: not dull Cardiovascular: irregular rhythm, other (S1,S2) Gastrointestinal: normoactive bowel sounds, soft, non-tender, non-distended (protuberant) Integumentary: rash, other (Femoral CVC, Newell catheter) Extremities: pink and warm, pulses normal, no ischemia or petechiae, edema (trace to 1+) Neurologic: pupils equal and round, other (unable to assess, sedated) Psychiatric: other (unable to assess, sedated) CBC and BMP: 08/05/20 Unknown 08/03/20 04:00 ABG, PT/INR, D-dimer: ABG ABG pH 7.342 (7.320-7.450) 08/03/20 21:00 POC ABG pCO2 48.3 mmHg (32.0-48.0) H 08/03/20 21:00 ABG pCO2 44.4 mm Hg 07/28/20 14:31 POC ABG pO2 67.6 mmHg (83-108) L 08/03/20 21:00 ABG pO2 68.0 mm Hg (80.0-90.0) L 07/28/20 14:31 POC ABG HCO3 25.6 08/03/20 21:00 ABG O2 Saturation 93.5 (0-100) 08/03/20 21:00 PT/INR, D-dimer PT 15.3 Sec. (12.2-14.9) H 07/24/20 20:40 INR 1.21 (0.87-1.13) H 07/24/20 20:40 D-Dimer 6608.00 ng/mlDDU (0-234) H 07/03/20 14:50 Abnormal lab findings: Abnormal Labs 06/17/20 06/17/20 06/17/20 12:33 12:33 12:33 WBC 19.5 H RBC 5.18 H Hgb 15.5 H Hct MCHC RDW Plt Count Lymph % (Auto) 3.8 L [place] % (Auto) Lymph # (Auto) 0.7 L [place] # (Auto) Eos # (Auto) Baso # (Auto) Seg Neutrophils % Seg Neuts % (Manual) 99.0 H Lymphocytes % (Manual) 1.0 L Monocytes % (Manual) Basophils % (Manual) Nucleated RBC % Seg Neutrophils # 18.2 H Seg Neutrophils # Man 19.3 H Lymphocytes # (Manual) 0.2 L Monocytes # (Manual) Eosinophils # (Manual) Basophils # (Manual) PT 16.5 H INR 1.33 H APTT D-Dimer 1025.04 H Heparin Anti-Xa Level ABG pH POC ABG pCO2 POC ABG pO2 ABG pO2 ABG HCO3 ABG O2 Saturation ABG Base Excess ABG Hemoglobin ABG Oxyhemoglobin ABG Sodium ABG Potassium ABG Chloride ABG Glucose Oxyhemoglobin Carboxyhemoglobin Sodium 130 L Potassium 3.4 L Chloride 95.0 L Carbon Dioxide BUN 21 H Creatinine Glucose 137 H POC Glucose Lactic Acid Calcium 7.9 L Phosphorus Magnesium Ferritin Direct Bilirubin AST 84 H ALT 67 H Alkaline Phosphatase Lactate Dehydrogenase 437 H Total Creatine Kinase 310 H C-Reactive Protein 27.90 H Total Protein Albumin 2.9 L Triglycerides Arterial Blood Glucose Arterial Blood Ionized Calcium Urine Creatinine Urine Chloride Vancomycin Trough Coronavirus (PCR) Crossmatch 06/17/20 06/17/20 06/17/20 12:33 12:33 14:48 WBC RBC Hgb Hct MCHC RDW Plt Count Lymph % (Auto) [place] % (Auto) Lymph # (Auto) [place] # (Auto) Eos # (Auto) Baso # (Auto) Seg Neutrophils % Seg Neuts % (Manual) Lymphocytes % (Manual) Monocytes % (Manual) Basophils % (Manual) Nucleated RBC % Seg Neutrophils # Seg Neutrophils # Man Lymphocytes # (Manual) Monocytes # (Manual) Eosinophils # (Manual) Basophils # (Manual) PT INR APTT D-Dimer Heparin Anti-Xa Level ABG pH POC ABG pCO2 POC ABG pO2 ABG pO2 ABG HCO3 ABG O2 Saturation ABG Base Excess ABG Hemoglobin ABG Oxyhemoglobin ABG Sodium ABG Potassium ABG Chloride ABG Glucose Oxyhemoglobin Carboxyhemoglobin Sodium Potassium Chloride Carbon Dioxide BUN Creatinine Glucose POC Glucose Lactic Acid 2.50 H* 2.20 H* Calcium Phosphorus Magnesium Ferritin 2297.0 H Direct Bilirubin AST ALT Alkaline Phosphatase Lactate Dehydrogenase Total Creatine Kinase C-Reactive Protein Total Protein Albumin Triglycerides Arterial Blood Glucose Arterial Blood Ionized Calcium Urine Creatinine Urine Chloride Vancomycin Trough Coronavirus (PCR) Crossmatch 06/17/20 06/17/20 06/17/20 14:48 14:48 14:48 WBC RBC Hgb Hct MCHC RDW Plt Count Lymph % (Auto) [place] % (Auto) Lymph # (Auto) [place] # (Auto) Eos # (Auto) Baso # (Auto) Seg Neutrophils % Seg Neuts % (Manual) Lymphocytes % (Manual) Monocytes % (Manual) Basophils % (Manual) Nucleated RBC % Seg Neutrophils # Seg Neutrophils # Man Lymphocytes # (Manual) Monocytes # (Manual) Eosinophils # (Manual) Basophils # (Manual) PT INR APTT D-Dimer 939.89 H Heparin Anti-Xa Level ABG pH POC ABG pCO2 POC ABG pO2 ABG pO2 ABG HCO3 ABG O2 Saturation ABG Base Excess ABG Hemoglobin ABG Oxyhemoglobin ABG Sodium ABG Potassium ABG Chloride ABG Glucose Oxyhemoglobin Carboxyhemoglobin Sodium Potassium Chloride Carbon Dioxide BUN Creatinine Glucose 141 H POC Glucose Lactic Acid Calcium Phosphorus Magnesium Ferritin > 2000.0 H Direct Bilirubin AST ALT Alkaline Phosphatase Lactate Dehydrogenase 503 H Total Creatine Kinase C-Reactive Protein 24.70 H Total Protein Albumin Triglycerides Arterial Blood Glucose Arterial Blood Ionized Calcium Urine Creatinine Urine Chloride Vancomycin Trough Coronavirus (PCR) Crossmatch 06/17/20 06/17/20 06/17/20 16:54 19:39 23:43 WBC RBC Hgb Hct MCHC RDW Plt Count Lymph % (Auto) [place] % (Auto) Lymph # (Auto) [place] # (Auto) Eos # (Auto) Baso # (Auto) Seg Neutrophils % Seg Neuts % (Manual) Lymphocytes % (Manual) Monocytes % (Manual) Basophils % (Manual) Nucleated RBC % Seg Neutrophils # Seg Neutrophils # Man Lymphocytes # (Manual) Monocytes # (Manual) Eosinophils # (Manual) Basophils # (Manual) PT INR APTT D-Dimer Heparin Anti-Xa Level ABG pH 7.571 H POC ABG pCO2 24.3 L POC ABG pO2 41.6 L ABG pO2 ABG HCO3 ABG O2 Saturation ABG Base Excess ABG Hemoglobin ABG Oxyhemoglobin 84.0 L ABG Sodium 131.0 L ABG Potassium ABG Chloride ABG Glucose 163 H Oxyhemoglobin Carboxyhemoglobin Sodium Potassium Chloride Carbon Dioxide BUN Creatinine Glucose POC Glucose 185 H Lactic Acid 2.10 H* Calcium Phosphorus Magnesium Ferritin Direct Bilirubin AST ALT Alkaline Phosphatase Lactate Dehydrogenase Total Creatine Kinase C-Reactive Protein Total Protein Albumin Triglycerides Arterial Blood Glucose 163 H Arterial Blood Ionized Calcium 4.4 L Urine Creatinine Urine Chloride Vancomycin Trough Coronavirus (PCR) Crossmatch 06/18/20 06/18/20 06/18/20 00:17 00:23 03:55 WBC RBC Hgb Hct MCHC RDW Plt Count Lymph % (Auto) [place] % (Auto) Lymph # (Auto) [place] # (Auto) Eos # (Auto) Baso # (Auto) Seg Neutrophils % Seg Neuts % (Manual) Lymphocytes % (Manual) Monocytes % (Manual) Basophils % (Manual) Nucleated RBC % Seg Neutrophils # Seg Neutrophils # Man Lymphocytes # (Manual) Monocytes # (Manual) Eosinophils # (Manual) Basophils # (Manual) PT INR APTT D-Dimer Heparin Anti-Xa Level ABG pH POC ABG pCO2 POC ABG pO2 56.5 L 48.3 L ABG pO2 ABG HCO3 ABG O2 Saturation ABG Base Excess ABG Hemoglobin ABG Oxyhemoglobin 86.3 L 81.7 L ABG Sodium 132.9 L 131.0 L ABG Potassium ABG Chloride ABG Glucose 189 H 161 H Oxyhemoglobin Carboxyhemoglobin 0.4 L Sodium Potassium Chloride Carbon Dioxide BUN Creatinine Glucose POC Glucose Lactic Acid 3.80 H* Calcium Phosphorus Magnesium Ferritin Direct Bilirubin AST ALT Alkaline Phosphatase Lactate Dehydrogenase Total Creatine Kinase C-Reactive Protein Total Protein Albumin Triglycerides Arterial Blood Glucose 189 H 161 H Arterial Blood Ionized Calcium 4.3 L 4.2 L Urine Creatinine Urine Chloride Vancomycin Trough Coronavirus (PCR) Crossmatch 06/18/20 06/18/20 06/18/20 05:39 05:39 05:39 WBC 26.2 H RBC Hgb Hct MCHC RDW Plt Count Lymph % (Auto) [place] % (Auto) Lymph # (Auto) [place] # (Auto) Eos # (Auto) Baso # (Auto) Seg Neutrophils % Seg Neuts % (Manual) 90.0 H Lymphocytes % (Manual) 5.0 L Monocytes % (Manual) Basophils % (Manual) Nucleated RBC % Seg Neutrophils # Seg Neutrophils # Man 23.6 H Lymphocytes # (Manual) Monocytes # (Manual) 1.3 H Eosinophils # (Manual) Basophils # (Manual) PT INR APTT D-Dimer Heparin Anti-Xa Level ABG pH POC ABG pCO2 POC ABG pO2 ABG pO2 ABG HCO3 ABG O2 Saturation ABG Base Excess ABG Hemoglobin ABG Oxyhemoglobin ABG Sodium ABG Potassium ABG Chloride ABG Glucose Oxyhemoglobin Carboxyhemoglobin Sodium 135 L Potassium Chloride 97.5 L Carbon Dioxide 21 L BUN 39 H Creatinine 1.7 H D Glucose 168 H POC Glucose Lactic Acid 3.40 H* Calcium 7.2 L Phosphorus Magnesium Ferritin Direct Bilirubin AST ALT Alkaline Phosphatase Lactate Dehydrogenase Total Creatine Kinase C-Reactive Protein Total Protein Albumin Triglycerides Arterial Blood Glucose Arterial Blood Ionized Calcium Urine Creatinine Urine Chloride Vancomycin Trough Coronavirus (PCR) Crossmatch 06/18/20 06/18/20 06/18/20 07:24 09:00 10:10 WBC RBC Hgb Hct MCHC RDW Plt Count Lymph % (Auto) [place] % (Auto) Lymph # (Auto) [place] # (Auto) Eos # (Auto) Baso # (Auto) Seg Neutrophils % Seg Neuts % (Manual) Lymphocytes % (Manual) Monocytes % (Manual) Basophils % (Manual) Nucleated RBC % Seg Neutrophils # Seg Neutrophils # Man Lymphocytes # (Manual) Monocytes # (Manual) Eosinophils # (Manual) Basophils # (Manual) PT INR APTT D-Dimer Heparin Anti-Xa Level ABG pH POC ABG pCO2 POC ABG pO2 ABG pO2 ABG HCO3 ABG O2 Saturation ABG Base Excess ABG Hemoglobin ABG Oxyhemoglobin ABG Sodium ABG Potassium ABG Chloride ABG Glucose Oxyhemoglobin Carboxyhemoglobin Sodium Potassium Chloride Carbon Dioxide BUN Creatinine Glucose POC Glucose Lactic Acid 2.90 H* 3.20 H* Calcium Phosphorus Magnesium Ferritin Direct Bilirubin AST ALT Alkaline Phosphatase Lactate Dehydrogenase Total Creatine Kinase C-Reactive Protein Total Protein Albumin Triglycerides Arterial Blood Glucose Arterial Blood Ionized Calcium Urine Creatinine Urine Chloride Vancomycin Trough Coronavirus (PCR) Positive A Crossmatch 06/18/20 06/18/20 06/18/20 11:58 14:43 15:00 WBC RBC Hgb Hct MCHC RDW Plt Count Lymph % (Auto) [place] % (Auto) Lymph # (Auto) [place] # (Auto) Eos # (Auto) Baso # (Auto) Seg Neutrophils % Seg Neuts % (Manual) Lymphocytes % (Manual) Monocytes % (Manual) Basophils % (Manual) Nucleated RBC % Seg Neutrophils # Seg Neutrophils # Man Lymphocytes # (Manual) Monocytes # (Manual) Eosinophils # (Manual) Basophils # (Manual) PT INR APTT D-Dimer Heparin Anti-Xa Level ABG pH 7.303 L POC ABG pCO2 POC ABG pO2 82.3 L ABG pO2 ABG HCO3 ABG O2 Saturation ABG Base Excess ABG Hemoglobin ABG Oxyhemoglobin ABG Sodium 135.3 L ABG Potassium ABG Chloride ABG Glucose 215 H Oxyhemoglobin Carboxyhemoglobin 0.3 L Sodium Potassium Chloride Carbon Dioxide BUN Creatinine Glucose POC Glucose 209 H Lactic Acid Calcium Phosphorus Magnesium Ferritin Direct Bilirubin AST ALT Alkaline Phosphatase Lactate Dehydrogenase Total Creatine Kinase C-Reactive Protein Total Protein Albumin Triglycerides Arterial Blood Glucose 215 H Arterial Blood Ionized Calcium 4.2 L Urine Creatinine 192.4 H Urine Chloride 31.1 L Vancomycin Trough Coronavirus (PCR) Crossmatch 06/18/20 06/18/20 06/18/20 17:16 19:44 20:33 WBC RBC Hgb Hct MCHC RDW Plt Count Lymph % (Auto) [place] % (Auto) Lymph # (Auto) [place] # (Auto) Eos # (Auto) Baso # (Auto) Seg Neutrophils % Seg Neuts % (Manual) Lymphocytes % (Manual) Monocytes % (Manual) Basophils % (Manual) Nucleated RBC % Seg Neutrophils # Seg Neutrophils # Man Lymphocytes # (Manual) Monocytes # (Manual) Eosinophils # (Manual) Basophils # (Manual) PT INR APTT D-Dimer Heparin Anti-Xa Level ABG pH POC ABG pCO2 POC ABG pO2 ABG pO2 ABG HCO3 ABG O2 Saturation ABG Base Excess ABG Hemoglobin ABG Oxyhemoglobin ABG Sodium ABG Potassium ABG Chloride ABG Glucose Oxyhemoglobin Carboxyhemoglobin Sodium Potassium Chloride Carbon Dioxide BUN Creatinine Glucose POC Glucose 182 H Lactic Acid 3.00 H* Calcium Phosphorus Magnesium 2.70 H Ferritin Direct Bilirubin AST ALT Alkaline Phosphatase Lactate Dehydrogenase Total Creatine Kinase C-Reactive Protein Total Protein Albumin Triglycerides Arterial Blood Glucose Arterial Blood Ionized Calcium Urine Creatinine Urine Chloride Vancomycin Trough Coronavirus (PCR) Crossmatch 06/18/20 06/19/20 06/19/20 23:43 04:00 04:00 WBC 31.6 H RBC Hgb Hct MCHC RDW Plt Count Lymph % (Auto) [place] % (Auto) Lymph # (Auto) [place] # (Auto) Eos # (Auto) Baso # (Auto) Seg Neutrophils % Seg Neuts % (Manual) 98.0 H Lymphocytes % (Manual) 0.5 L Monocytes % (Manual) Basophils % (Manual) Nucleated RBC % Seg Neutrophils # Seg Neutrophils # Man 31.0 H Lymphocytes # (Manual) 0.2 L Monocytes # (Manual) Eosinophils # (Manual) Basophils # (Manual) PT INR APTT D-Dimer Heparin Anti-Xa Level ABG pH POC ABG pCO2 POC ABG pO2 ABG pO2 ABG HCO3 ABG O2 Saturation ABG Base Excess ABG Hemoglobin ABG Oxyhemoglobin ABG Sodium ABG Potassium ABG Chloride ABG Glucose Oxyhemoglobin Carboxyhemoglobin Sodium Potassium Chloride Carbon Dioxide BUN 56 H Creatinine 1.6 H Glucose 176 H POC Glucose 149 H Lactic Acid Calcium 7.0 L Phosphorus Magnesium Ferritin Direct Bilirubin AST 244 H ALT 159 H Alkaline Phosphatase Lactate Dehydrogenase Total Creatine Kinase C-Reactive Protein Total Protein 4.9 L D Albumin 2.5 L Triglycerides Arterial Blood Glucose Arterial Blood Ionized Calcium Urine Creatinine Urine Chloride Vancomycin Trough Coronavirus (PCR) Crossmatch 06/19/20 06/19/20 06/19/20 04:00 05:44 11:42 WBC RBC Hgb Hct MCHC RDW Plt Count Lymph % (Auto) [place] % (Auto) Lymph # (Auto) [place] # (Auto) Eos # (Auto) Baso # (Auto) Seg Neutrophils % Seg Neuts % (Manual) Lymphocytes % (Manual) Monocytes % (Manual) Basophils % (Manual) Nucleated RBC % Seg Neutrophils # Seg Neutrophils # Man Lymphocytes # (Manual) Monocytes # (Manual) Eosinophils # (Manual) Basophils # (Manual) PT INR APTT D-Dimer Heparin Anti-Xa Level ABG pH 7.265 L POC ABG pCO2 51.8 H POC ABG pO2 65.1 L ABG pO2 ABG HCO3 ABG O2 Saturation ABG Base Excess ABG Hemoglobin ABG Oxyhemoglobin ABG Sodium ABG Potassium ABG Chloride ABG Glucose 184 H Oxyhemoglobin Carboxyhemoglobin Sodium Potassium Chloride Carbon Dioxide BUN Creatinine Glucose POC Glucose 156 H 191 H Lactic Acid Calcium Phosphorus Magnesium Ferritin Direct Bilirubin AST ALT Alkaline Phosphatase Lactate Dehydrogenase Total Creatine Kinase C-Reactive Protein Total Protein Albumin Triglycerides Arterial Blood Glucose 184 H Arterial Blood Ionized Calcium 4.3 L Urine Creatinine Urine Chloride Vancomycin Trough Coronavirus (PCR) Crossmatch 06/19/20 06/19/20 06/19/20 12:30 17:16 18:36 WBC RBC Hgb Hct MCHC RDW Plt Count Lymph % (Auto) [place] % (Auto) Lymph # (Auto) [place] # (Auto) Eos # (Auto) Baso # (Auto) Seg Neutrophils % Seg Neuts % (Manual) Lymphocytes % (Manual) Monocytes % (Manual) Basophils % (Manual) Nucleated RBC % Seg Neutrophils # Seg Neutrophils # Man Lymphocytes # (Manual) Monocytes # (Manual) Eosinophils # (Manual) Basophils # (Manual) PT 16.4 H INR 1.32 H APTT D-Dimer Heparin Anti-Xa Level ABG pH 7.088 L POC ABG pCO2 78.1 H POC ABG pO2 208.3 H ABG pO2 ABG HCO3 ABG O2 Saturation ABG Base Excess ABG Hemoglobin ABG Oxyhemoglobin 98.3 H ABG Sodium ABG Potassium 5.0 H ABG Chloride ABG Glucose 182 H Oxyhemoglobin Carboxyhemoglobin 0.4 L Sodium Potassium Chloride Carbon Dioxide BUN Creatinine Glucose POC Glucose 154 H Lactic Acid Calcium Phosphorus Magnesium Ferritin Direct Bilirubin AST ALT Alkaline Phosphatase Lactate Dehydrogenase Total Creatine Kinase C-Reactive Protein Total Protein Albumin Triglycerides Arterial Blood Glucose 182 H Arterial Blood Ionized Calcium 4.3 L Urine Creatinine Urine Chloride Vancomycin Trough Coronavirus (PCR) Crossmatch 06/19/20 06/20/20 06/20/20 23:32 03:00 05:19 WBC RBC Hgb Hct MCHC RDW Plt Count Lymph % (Auto) [place] % (Auto) Lymph # (Auto) [place] # (Auto) Eos # (Auto) Baso # (Auto) Seg Neutrophils % Seg Neuts % (Manual) Lymphocytes % (Manual) Monocytes % (Manual) Basophils % (Manual) Nucleated RBC % Seg Neutrophils # Seg Neutrophils # Man Lymphocytes # (Manual) Monocytes # (Manual) Eosinophils # (Manual) Basophils # (Manual) PT INR APTT D-Dimer Heparin Anti-Xa Level 0.77 H ABG pH POC ABG pCO2 POC ABG pO2 ABG pO2 ABG HCO3 ABG O2 Saturation ABG Base Excess ABG Hemoglobin ABG Oxyhemoglobin ABG Sodium ABG Potassium ABG Chloride ABG Glucose Oxyhemoglobin Carboxyhemoglobin Sodium Potassium Chloride Carbon Dioxide BUN Creatinine Glucose POC Glucose 201 H 190 H Lactic Acid Calcium Phosphorus Magnesium Ferritin Direct Bilirubin AST ALT Alkaline Phosphatase Lactate Dehydrogenase Total Creatine Kinase C-Reactive Protein Total Protein Albumin Triglycerides Arterial Blood Glucose Arterial Blood Ionized Calcium Urine Creatinine Urine Chloride Vancomycin Trough Coronavirus (PCR) Crossmatch 06/20/20 06/20/20 06/20/20 08:25 08:25 11:36 WBC RBC Hgb Hct MCHC RDW Plt Count Lymph % (Auto) [place] % (Auto) Lymph # (Auto) [place] # (Auto) Eos # (Auto) Baso # (Auto) Seg Neutrophils % Seg Neuts % (Manual) Lymphocytes % (Manual) Monocytes % (Manual) Basophils % (Manual) Nucleated RBC % Seg Neutrophils # Seg Neutrophils # Man Lymphocytes # (Manual) Monocytes # (Manual) Eosinophils # (Manual) Basophils # (Manual) PT INR APTT D-Dimer Heparin Anti-Xa Level ABG pH POC ABG pCO2 POC ABG pO2 ABG pO2 ABG HCO3 ABG O2 Saturation ABG Base Excess ABG Hemoglobin ABG Oxyhemoglobin ABG Sodium ABG Potassium ABG Chloride ABG Glucose Oxyhemoglobin Carboxyhemoglobin Sodium 135 L Potassium 5.4 H Chloride 109.2 H Carbon Dioxide 19 L BUN 68 H Creatinine 2.5 H D Glucose 201 H POC Glucose 184 H Lactic Acid Calcium 5.5 L* D Phosphorus Magnesium Ferritin Direct Bilirubin AST 123 H ALT 86 H Alkaline Phosphatase Lactate Dehydrogenase Total Creatine Kinase C-Reactive Protein Total Protein 4.6 L Albumin 1.5 L Triglycerides Arterial Blood Glucose Arterial Blood Ionized Calcium Urine Creatinine Urine Chloride Vancomycin Trough 22.7 H Coronavirus (PCR) Crossmatch 06/20/20 06/20/20 06/20/20 11:40 17:28 20:00 WBC RBC Hgb Hct MCHC RDW Plt Count Lymph % (Auto) [place] % (Auto) Lymph # (Auto) [place] # (Auto) Eos # (Auto) Baso # (Auto) Seg Neutrophils % Seg Neuts % (Manual) Lymphocytes % (Manual) Monocytes % (Manual) Basophils % (Manual) Nucleated RBC % Seg Neutrophils # Seg Neutrophils # Man Lymphocytes # (Manual) Monocytes # (Manual) Eosinophils # (Manual) Basophils # (Manual) PT INR APTT D-Dimer Heparin Anti-Xa Level 0.89 H ABG pH 7.099 L POC ABG pCO2 61.1 H POC ABG pO2 ABG pO2 ABG HCO3 ABG O2 Saturation ABG Base Excess ABG Hemoglobin ABG Oxyhemoglobin ABG Sodium ABG Potassium 5.0 H ABG Chloride 111.0 H ABG Glucose 200 H Oxyhemoglobin Carboxyhemoglobin 0.4 L Sodium Potassium Chloride Carbon Dioxide BUN Creatinine Glucose POC Glucose 165 H Lactic Acid Calcium Phosphorus Magnesium Ferritin Direct Bilirubin AST ALT Alkaline Phosphatase Lactate Dehydrogenase Total Creatine Kinase C-Reactive Protein Total Protein Albumin Triglycerides Arterial Blood Glucose 200 H Arterial Blood Ionized Calcium 4.2 L Urine Creatinine Urine Chloride Vancomycin Trough Coronavirus (PCR) Crossmatch 06/20/20 06/21/20 06/21/20 23:29 05:00 05:20 WBC RBC Hgb Hct MCHC RDW Plt Count Lymph % (Auto) [place] % (Auto) Lymph # (Auto) [place] # (Auto) Eos # (Auto) Baso # (Auto) Seg Neutrophils % Seg Neuts % (Manual) Lymphocytes % (Manual) Monocytes % (Manual) Basophils % (Manual) Nucleated RBC % Seg Neutrophils # Seg Neutrophils # Man Lymphocytes # (Manual) Monocytes # (Manual) Eosinophils # (Manual) Basophils # (Manual) PT INR APTT D-Dimer Heparin Anti-Xa Level ABG pH POC ABG pCO2 POC ABG pO2 ABG pO2 ABG HCO3 ABG O2 Saturation ABG Base Excess ABG Hemoglobin ABG Oxyhemoglobin ABG Sodium ABG Potassium ABG Chloride ABG Glucose Oxyhemoglobin Carboxyhemoglobin Sodium Potassium Chloride 112.0 H Carbon Dioxide 20 L BUN 92 H Creatinine 3.9 H D Glucose 214 H POC Glucose 145 H 191 H Lactic Acid Calcium 6.5 L D Phosphorus Magnesium Ferritin Direct Bilirubin AST 98 H ALT 84 H Alkaline Phosphatase Lactate Dehydrogenase Total Creatine Kinase C-Reactive Protein Total Protein 4.6 L Albumin 2.1 L Triglycerides 180 H Arterial Blood Glucose Arterial Blood Ionized Calcium Urine Creatinine Urine Chloride Vancomycin Trough Coronavirus (PCR) Crossmatch 06/21/20 06/21/20 06/21/20 08:56 11:12 12:43 WBC RBC Hgb Hct MCHC RDW Plt Count Lymph % (Auto) [place] % (Auto) Lymph # (Auto) [place] # (Auto) Eos # (Auto) Baso # (Auto) Seg Neutrophils % Seg Neuts % (Manual) Lymphocytes % (Manual) Monocytes % (Manual) Basophils % (Manual) Nucleated RBC % Seg Neutrophils # Seg Neutrophils # Man Lymphocytes # (Manual) Monocytes # (Manual) Eosinophils # (Manual) Basophils # (Manual) PT INR APTT D-Dimer Heparin Anti-Xa Level 0.28 L ABG pH 7.184 L POC ABG pCO2 48.3 H POC ABG pO2 172.1 H ABG pO2 ABG HCO3 ABG O2 Saturation ABG Base Excess ABG Hemoglobin ABG Oxyhemoglobin 98.7 H ABG Sodium ABG Potassium 4.9 H ABG Chloride 112.0 H ABG Glucose 196 H Oxyhemoglobin Carboxyhemoglobin 0.2 L Sodium Potassium Chloride Carbon Dioxide BUN Creatinine Glucose POC Glucose 177 H Lactic Acid Calcium Phosphorus Magnesium Ferritin Direct Bilirubin AST ALT Alkaline Phosphatase Lactate Dehydrogenase Total Creatine Kinase C-Reactive Protein Total Protein Albumin Triglycerides Arterial Blood Glucose 196 H Arterial Blood Ionized Calcium 4.1 L Urine Creatinine Urine Chloride Vancomycin Trough Coronavirus (PCR) Crossmatch 06/21/20 06/21/20 06/22/20 16:31 Unknown 00:12 WBC RBC Hgb Hct MCHC RDW Plt Count Lymph % (Auto) [place] % (Auto) Lymph # (Auto) [place] # (Auto) Eos # (Auto) Baso # (Auto) Seg Neutrophils % Seg Neuts % (Manual) Lymphocytes % (Manual) Monocytes % (Manual) Basophils % (Manual) Nucleated RBC % Seg Neutrophils # Seg Neutrophils # Man Lymphocytes # (Manual) Monocytes # (Manual) Eosinophils # (Manual) Basophils # (Manual) PT INR APTT D-Dimer Heparin Anti-Xa Level 0.78 H ABG pH POC ABG pCO2 POC ABG pO2 ABG pO2 ABG HCO3 ABG O2 Saturation ABG Base Excess ABG Hemoglobin ABG Oxyhemoglobin ABG Sodium ABG Potassium ABG Chloride ABG Glucose Oxyhemoglobin Carboxyhemoglobin Sodium Potassium Chloride Carbon Dioxide BUN Creatinine Glucose POC Glucose 150 H 173 H Lactic Acid Calcium Phosphorus Magnesium Ferritin Direct Bilirubin AST ALT Alkaline Phosphatase Lactate Dehydrogenase Total Creatine Kinase C-Reactive Protein Total Protein Albumin Triglycerides Arterial Blood Glucose Arterial Blood Ionized Calcium Urine Creatinine Urine Chloride Vancomycin Trough Coronavirus (PCR) Crossmatch 06/22/20 06/22/20 06/22/20 04:00 05:04 05:30 WBC 33.9 H RBC Hgb 11.7 L Hct 35.2 L MCHC RDW 15.8 H Plt Count Lymph % (Auto) [place] % (Auto) Lymph # (Auto) [place] # (Auto) Eos # (Auto) Baso # (Auto) Seg Neutrophils % Seg Neuts % (Manual) 93.0 H Lymphocytes % (Manual) 5.0 L Monocytes % (Manual) Basophils % (Manual) Nucleated RBC % Seg Neutrophils # Seg Neutrophils # Man 31.5 H Lymphocytes # (Manual) Monocytes # (Manual) Eosinophils # (Manual) Basophils # (Manual) PT INR APTT D-Dimer Heparin Anti-Xa Level ABG pH 7.169 L POC ABG pCO2 POC ABG pO2 ABG pO2 ABG HCO3 ABG O2 Saturation ABG Base Excess ABG Hemoglobin ABG Oxyhemoglobin ABG Sodium ABG Potassium 5.1 H ABG Chloride 112.0 H ABG Glucose 186 H Oxyhemoglobin Carboxyhemoglobin 0.3 L Sodium Potassium Chloride Carbon Dioxide BUN Creatinine Glucose POC Glucose 161 H Lactic Acid Calcium Phosphorus Magnesium Ferritin Direct Bilirubin AST ALT Alkaline Phosphatase Lactate Dehydrogenase Total Creatine Kinase C-Reactive Protein Total Protein Albumin Triglycerides Arterial Blood Glucose 186 H Arterial Blood Ionized Calcium 4.1 L Urine Creatinine Urine Chloride Vancomycin Trough Coronavirus (PCR) Crossmatch 06/22/20 06/22/20 06/22/20 05:30 11:39 13:27 WBC RBC Hgb Hct MCHC RDW Plt Count Lymph % (Auto) [place] % (Auto) Lymph # (Auto) [place] # (Auto) Eos # (Auto) Baso # (Auto) Seg Neutrophils % Seg Neuts % (Manual) Lymphocytes % (Manual) Monocytes % (Manual) Basophils % (Manual) Nucleated RBC % Seg Neutrophils # Seg Neutrophils # Man Lymphocytes # (Manual) Monocytes # (Manual) Eosinophils # (Manual) Basophils # (Manual) PT INR APTT D-Dimer Heparin Anti-Xa Level ABG pH POC ABG pCO2 POC ABG pO2 ABG pO2 ABG HCO3 ABG O2 Saturation ABG Base Excess ABG Hemoglobin ABG Oxyhemoglobin ABG Sodium ABG Potassium ABG Chloride ABG Glucose Oxyhemoglobin Carboxyhemoglobin Sodium Potassium 5.7 H Chloride 111.3 H Carbon Dioxide 18 L BUN 112 H Creatinine 5.0 H Glucose 173 H POC Glucose 172 H 176 H Lactic Acid Calcium 6.7 L Phosphorus Magnesium Ferritin Direct Bilirubin AST ALT Alkaline Phosphatase Lactate Dehydrogenase Total Creatine Kinase C-Reactive Protein Total Protein Albumin Triglycerides Arterial Blood Glucose Arterial Blood Ionized Calcium Urine Creatinine Urine Chloride Vancomycin Trough Coronavirus (PCR) Crossmatch 06/22/20 06/22/20 06/22/20 14:37 17:00 17:40 WBC RBC Hgb Hct MCHC RDW Plt Count Lymph % (Auto) [place] % (Auto) Lymph # (Auto) [place] # (Auto) Eos # (Auto) Baso # (Auto) Seg Neutrophils % Seg Neuts % (Manual) Lymphocytes % (Manual) Monocytes % (Manual) Basophils % (Manual) Nucleated RBC % Seg Neutrophils # Seg Neutrophils # Man Lymphocytes # (Manual) Monocytes # (Manual) Eosinophils # (Manual) Basophils # (Manual) PT INR APTT D-Dimer Heparin Anti-Xa Level 1.32 H ABG pH POC ABG pCO2 POC ABG pO2 ABG pO2 ABG HCO3 ABG O2 Saturation ABG Base Excess ABG Hemoglobin ABG Oxyhemoglobin ABG Sodium ABG Potassium ABG Chloride ABG Glucose Oxyhemoglobin Carboxyhemoglobin Sodium Potassium Chloride Carbon Dioxide BUN Creatinine Glucose POC Glucose 171 H Lactic Acid Calcium Phosphorus Magnesium Ferritin Direct Bilirubin AST ALT Alkaline Phosphatase Lactate Dehydrogenase Total Creatine Kinase C-Reactive Protein 5.30 H Total Protein Albumin Triglycerides Arterial Blood Glucose Arterial Blood Ionized Calcium Urine Creatinine Urine Chloride Vancomycin Trough Coronavirus (PCR) Crossmatch 06/22/20 06/23/20 06/23/20 23:36 02:13 02:41 WBC RBC Hgb Hct MCHC RDW Plt Count Lymph % (Auto) [place] % (Auto) Lymph # (Auto) [place] # (Auto) Eos # (Auto) Baso # (Auto) Seg Neutrophils % Seg Neuts % (Manual) Lymphocytes % (Manual) Monocytes % (Manual) Basophils % (Manual) Nucleated RBC % Seg Neutrophils # Seg Neutrophils # Man Lymphocytes # (Manual) Monocytes # (Manual) Eosinophils # (Manual) Basophils # (Manual) PT INR APTT D-Dimer Heparin Anti-Xa Level 0.21 L ABG pH 7.318 L POC ABG pCO2 POC ABG pO2 157.5 H ABG pO2 ABG HCO3 ABG O2 Saturation ABG Base Excess ABG Hemoglobin ABG Oxyhemoglobin ABG Sodium 135.6 L ABG Potassium 4.6 H ABG Chloride 110.0 H ABG Glucose 169 H Oxyhemoglobin Carboxyhemoglobin Sodium Potassium Chloride Carbon Dioxide BUN Creatinine Glucose POC Glucose 155 H Lactic Acid Calcium Phosphorus Magnesium Ferritin Direct Bilirubin AST ALT Alkaline Phosphatase Lactate Dehydrogenase Total Creatine Kinase C-Reactive Protein Total Protein Albumin Triglycerides Arterial Blood Glucose 169 H Arterial Blood Ionized Calcium Urine Creatinine Urine Chloride Vancomycin Trough Coronavirus (PCR) Crossmatch 06/23/20 06/23/20 06/23/20 04:00 04:00 05:24 WBC 27.4 H RBC Hgb 11.3 L Hct 33.8 L MCHC RDW Plt Count Lymph % (Auto) [place] % (Auto) Lymph # (Auto) [place] # (Auto) Eos # (Auto) Baso # (Auto) Seg Neutrophils % Seg Neuts % (Manual) 93.0 H Lymphocytes % (Manual) 1.0 L Monocytes % (Manual) Basophils % (Manual) Nucleated RBC % 1.0 H Seg Neutrophils # Seg Neutrophils # Man 25.5 H Lymphocytes # (Manual) 0.3 L Monocytes # (Manual) 1.1 H Eosinophils # (Manual) Basophils # (Manual) PT INR APTT D-Dimer Heparin Anti-Xa Level ABG pH POC ABG pCO2 POC ABG pO2 ABG pO2 ABG HCO3 ABG O2 Saturation ABG Base Excess ABG Hemoglobin ABG Oxyhemoglobin ABG Sodium ABG Potassium ABG Chloride ABG Glucose Oxyhemoglobin Carboxyhemoglobin Sodium Potassium Chloride 107.6 H Carbon Dioxide 20 L BUN 100 H Creatinine 4.7 H Glucose 168 H POC Glucose 151 H Lactic Acid Calcium Phosphorus Magnesium Ferritin Direct Bilirubin AST ALT Alkaline Phosphatase Lactate Dehydrogenase Total Creatine Kinase C-Reactive Protein Total Protein Albumin Triglycerides Arterial Blood Glucose Arterial Blood Ionized Calcium Urine Creatinine Urine Chloride Vancomycin Trough Coronavirus (PCR) Crossmatch 06/23/20 06/23/20 06/23/20 11:30 17:18 23:50 WBC RBC Hgb Hct MCHC RDW Plt Count Lymph % (Auto) [place] % (Auto) Lymph # (Auto) [place] # (Auto) Eos # (Auto) Baso # (Auto) Seg Neutrophils % Seg Neuts % (Manual) Lymphocytes % (Manual) Monocytes % (Manual) Basophils % (Manual) Nucleated RBC % Seg Neutrophils # Seg Neutrophils # Man Lymphocytes # (Manual) Monocytes # (Manual) Eosinophils # (Manual) Basophils # (Manual) PT INR APTT D-Dimer Heparin Anti-Xa Level ABG pH POC ABG pCO2 POC ABG pO2 ABG pO2 ABG HCO3 ABG O2 Saturation ABG Base Excess ABG Hemoglobin ABG Oxyhemoglobin ABG Sodium ABG Potassium ABG Chloride ABG Glucose Oxyhemoglobin Carboxyhemoglobin Sodium Potassium Chloride Carbon Dioxide BUN Creatinine Glucose POC Glucose 157 H 156 H 162 H Lactic Acid Calcium Phosphorus Magnesium Ferritin Direct Bilirubin AST ALT Alkaline Phosphatase Lactate Dehydrogenase Total Creatine Kinase C-Reactive Protein Total Protein Albumin Triglycerides Arterial Blood Glucose Arterial Blood Ionized Calcium Urine Creatinine Urine Chloride Vancomycin Trough Coronavirus (PCR) Crossmatch 06/24/20 06/24/20 06/24/20 04:41 05:57 06:30 WBC 34.3 H RBC Hgb 10.9 L Hct 32.6 L MCHC RDW Plt Count Lymph % (Auto) 2.0 L [place] % (Auto) Lymph # (Auto) 0.7 L [place] # (Auto) 1.2 H Eos # (Auto) Baso # (Auto) Seg Neutrophils % Seg Neuts % (Manual) 96.0 H Lymphocytes % (Manual) 3.0 L Monocytes % (Manual) Basophils % (Manual) Nucleated RBC % Seg Neutrophils # 32.3 H Seg Neutrophils # Man 32.9 H Lymphocytes # (Manual) 1.0 L Monocytes # (Manual) Eosinophils # (Manual) Basophils # (Manual) PT INR APTT D-Dimer Heparin Anti-Xa Level ABG pH POC ABG pCO2 POC ABG pO2 71.1 L ABG pO2 ABG HCO3 ABG O2 Saturation ABG Base Excess ABG Hemoglobin ABG Oxyhemoglobin 92.4 L ABG Sodium 115.6 L ABG Potassium ABG Chloride ABG Glucose 159 H Oxyhemoglobin Carboxyhemoglobin Sodium Potassium Chloride Carbon Dioxide BUN Creatinine Glucose POC Glucose 143 H Lactic Acid Calcium Phosphorus Magnesium Ferritin Direct Bilirubin AST ALT Alkaline Phosphatase Lactate Dehydrogenase Total Creatine Kinase C-Reactive Protein Total Protein Albumin Triglycerides Arterial Blood Glucose 159 H Arterial Blood Ionized Calcium 4.2 L Urine Creatinine Urine Chloride Vancomycin Trough Coronavirus (PCR) Crossmatch 06/24/20 06/24/20 06/24/20 07:03 09:37 11:56 WBC RBC Hgb Hct MCHC RDW Plt Count Lymph % (Auto) [place] % (Auto) Lymph # (Auto) [place] # (Auto) Eos # (Auto) Baso # (Auto) Seg Neutrophils % Seg Neuts % (Manual) Lymphocytes % (Manual) Monocytes % (Manual) Basophils % (Manual) Nucleated RBC % Seg Neutrophils # Seg Neutrophils # Man Lymphocytes # (Manual) Monocytes # (Manual) Eosinophils # (Manual) Basophils # (Manual) PT INR APTT D-Dimer Heparin Anti-Xa Level 0.26 L ABG pH POC ABG pCO2 POC ABG pO2 ABG pO2 ABG HCO3 ABG O2 Saturation ABG Base Excess ABG Hemoglobin ABG Oxyhemoglobin ABG Sodium ABG Potassium ABG Chloride ABG Glucose Oxyhemoglobin Carboxyhemoglobin Sodium Potassium 5.1 H Chloride Carbon Dioxide BUN 103 H Creatinine 5.0 H Glucose 163 H POC Glucose 149 H Lactic Acid Calcium 7.6 L Phosphorus Magnesium Ferritin Direct Bilirubin AST ALT Alkaline Phosphatase Lactate Dehydrogenase Total Creatine Kinase C-Reactive Protein Total Protein Albumin Triglycerides Arterial Blood Glucose Arterial Blood Ionized Calcium Urine Creatinine Urine Chloride Vancomycin Trough Coronavirus (PCR) Crossmatch 06/24/20 06/25/20 06/25/20 18:09 01:05 03:00 WBC RBC Hgb 10.6 L Hct 32.1 L MCHC RDW Plt Count Lymph % (Auto) [place] % (Auto) Lymph # (Auto) [place] # (Auto) Eos # (Auto) Baso # (Auto) Seg Neutrophils % Seg Neuts % (Manual) Lymphocytes % (Manual) Monocytes % (Manual) Basophils % (Manual) Nucleated RBC % Seg Neutrophils # Seg Neutrophils # Man Lymphocytes # (Manual) Monocytes # (Manual) Eosinophils # (Manual) Basophils # (Manual) PT INR APTT D-Dimer Heparin Anti-Xa Level ABG pH POC ABG pCO2 POC ABG pO2 ABG pO2 ABG HCO3 ABG O2 Saturation ABG Base Excess ABG Hemoglobin ABG Oxyhemoglobin ABG Sodium ABG Potassium ABG Chloride ABG Glucose Oxyhemoglobin Carboxyhemoglobin Sodium Potassium Chloride Carbon Dioxide BUN Creatinine Glucose POC Glucose 141 H 137 H Lactic Acid Calcium Phosphorus Magnesium Ferritin Direct Bilirubin AST ALT Alkaline Phosphatase Lactate Dehydrogenase Total Creatine Kinase C-Reactive Protein Total Protein Albumin Triglycerides Arterial Blood Glucose Arterial Blood Ionized Calcium Urine Creatinine Urine Chloride Vancomycin Trough Coronavirus (PCR) Crossmatch 06/25/20 06/25/20 06/25/20 03:48 05:17 12:08 WBC RBC Hgb Hct MCHC RDW Plt Count Lymph % (Auto) [place] % (Auto) Lymph # (Auto) [place] # (Auto) Eos # (Auto) Baso # (Auto) Seg Neutrophils % Seg Neuts % (Manual) Lymphocytes % (Manual) Monocytes % (Manual) Basophils % (Manual) Nucleated RBC % Seg Neutrophils # Seg Neutrophils # Man Lymphocytes # (Manual) Monocytes # (Manual) Eosinophils # (Manual) Basophils # (Manual) PT INR APTT D-Dimer Heparin Anti-Xa Level ABG pH POC ABG pCO2 29.4 L POC ABG pO2 67.1 L ABG pO2 ABG HCO3 ABG O2 Saturation ABG Base Excess ABG Hemoglobin 11.5 L ABG Oxyhemoglobin ABG Sodium 124.1 L ABG Potassium 4.6 H ABG Chloride ABG Glucose 159 H Oxyhemoglobin Carboxyhemoglobin Sodium Potassium Chloride Carbon Dioxide BUN Creatinine Glucose POC Glucose 149 H 150 H Lactic Acid Calcium Phosphorus Magnesium Ferritin Direct Bilirubin AST ALT Alkaline Phosphatase Lactate Dehydrogenase Total Creatine Kinase C-Reactive Protein Total Protein Albumin Triglycerides Arterial Blood Glucose 159 H Arterial Blood Ionized Calcium 4.2 L Urine Creatinine Urine Chloride Vancomycin Trough Coronavirus (PCR) Crossmatch 06/25/20 06/25/20 06/25/20 16:27 16:35 17:27 WBC RBC Hgb Hct MCHC RDW Plt Count Lymph % (Auto) [place] % (Auto) Lymph # (Auto) [place] # (Auto) Eos # (Auto) Baso # (Auto) Seg Neutrophils % Seg Neuts % (Manual) Lymphocytes % (Manual) Monocytes % (Manual) Basophils % (Manual) Nucleated RBC % Seg Neutrophils # Seg Neutrophils # Man Lymphocytes # (Manual) Monocytes # (Manual) Eosinophils # (Manual) Basophils # (Manual) PT INR APTT D-Dimer Heparin Anti-Xa Level < 0.10 L ABG pH POC ABG pCO2 POC ABG pO2 ABG pO2 ABG HCO3 ABG O2 Saturation ABG Base Excess ABG Hemoglobin ABG Oxyhemoglobin ABG Sodium ABG Potassium ABG Chloride ABG Glucose Oxyhemoglobin Carboxyhemoglobin Sodium Potassium Chloride Carbon Dioxide BUN Creatinine Glucose POC Glucose 143 H 156 H Lactic Acid Calcium Phosphorus Magnesium Ferritin Direct Bilirubin AST ALT Alkaline Phosphatase Lactate Dehydrogenase Total Creatine Kinase C-Reactive Protein Total Protein Albumin Triglycerides Arterial Blood Glucose Arterial Blood Ionized Calcium Urine Creatinine Urine Chloride Vancomycin Trough Coronavirus (PCR) Crossmatch 06/25/20 06/25/20 06/25/20 20:00 20:55 23:10 WBC 32.7 H RBC 3.06 L Hgb 9.0 L 9.5 L Hct 26.7 L 28.6 L MCHC RDW Plt Count Lymph % (Auto) [place] % (Auto) Lymph # (Auto) [place] # (Auto) Eos # (Auto) Baso # (Auto) Seg Neutrophils % Seg Neuts % (Manual) Lymphocytes % (Manual) 2.0 L Monocytes % (Manual) Basophils % (Manual) Nucleated RBC % Seg Neutrophils # Seg Neutrophils # Man 30.7 H Lymphocytes # (Manual) 0.7 L Monocytes # (Manual) 1.3 H Eosinophils # (Manual) Basophils # (Manual) PT 17.7 H INR 1.47 H APTT 65.8 H* D-Dimer Heparin Anti-Xa Level ABG pH POC ABG pCO2 POC ABG pO2 ABG pO2 ABG HCO3 ABG O2 Saturation ABG Base Excess ABG Hemoglobin ABG Oxyhemoglobin ABG Sodium ABG Potassium ABG Chloride ABG Glucose Oxyhemoglobin Carboxyhemoglobin Sodium Potassium Chloride Carbon Dioxide BUN Creatinine Glucose POC Glucose Lactic Acid Calcium Phosphorus Magnesium Ferritin Direct Bilirubin AST ALT Alkaline Phosphatase Lactate Dehydrogenase Total Creatine Kinase C-Reactive Protein Total Protein Albumin Triglycerides Arterial Blood Glucose Arterial Blood Ionized Calcium Urine Creatinine Urine Chloride Vancomycin Trough Coronavirus (PCR) Crossmatch 06/25/20 06/26/20 06/26/20 23:14 01:30 03:25 WBC RBC Hgb Hct MCHC RDW Plt Count Lymph % (Auto) [place] % (Auto) Lymph # (Auto) [place] # (Auto) Eos # (Auto) Baso # (Auto) Seg Neutrophils % Seg Neuts % (Manual) Lymphocytes % (Manual) Monocytes % (Manual) Basophils % (Manual) Nucleated RBC % Seg Neutrophils # Seg Neutrophils # Man Lymphocytes # (Manual) Monocytes # (Manual) Eosinophils # (Manual) Basophils # (Manual) PT INR APTT D-Dimer Heparin Anti-Xa Level < 0.10 L ABG pH POC ABG pCO2 POC ABG pO2 ABG pO2 ABG HCO3 ABG O2 Saturation ABG Base Excess ABG Hemoglobin 11.8 L ABG Oxyhemoglobin ABG Sodium 127.1 L ABG Potassium 5.4 H ABG Chloride ABG Glucose 155 H Oxyhemoglobin Carboxyhemoglobin 0.3 L Sodium Potassium Chloride Carbon Dioxide BUN Creatinine Glucose POC Glucose 148 H Lactic Acid Calcium Phosphorus Magnesium Ferritin Direct Bilirubin AST ALT Alkaline Phosphatase Lactate Dehydrogenase Total Creatine Kinase C-Reactive Protein Total Protein Albumin Triglycerides Arterial Blood Glucose 155 H Arterial Blood Ionized Calcium 4.2 L Urine Creatinine Urine Chloride Vancomycin Trough Coronavirus (PCR) Crossmatch 06/26/20 06/26/20 06/26/20 03:59 05:14 05:47 WBC 36.5 H RBC 3.26 L Hgb 9.7 L Hct 28.2 L MCHC RDW Plt Count Lymph % (Auto) [place] % (Auto) Lymph # (Auto) [place] # (Auto) Eos # (Auto) Baso # (Auto) Seg Neutrophils % Seg Neuts % (Manual) 92.0 H Lymphocytes % (Manual) 4.0 L Monocytes % (Manual) Basophils % (Manual) Nucleated RBC % Seg Neutrophils # Seg Neutrophils # Man 33.6 H Lymphocytes # (Manual) Monocytes # (Manual) Eosinophils # (Manual) Basophils # (Manual) PT INR APTT D-Dimer Heparin Anti-Xa Level ABG pH POC ABG pCO2 POC ABG pO2 ABG pO2 ABG HCO3 ABG O2 Saturation ABG Base Excess ABG Hemoglobin ABG Oxyhemoglobin ABG Sodium ABG Potassium ABG Chloride ABG Glucose Oxyhemoglobin Carboxyhemoglobin Sodium Potassium 5.9 H Chloride Carbon Dioxide 20 L BUN 144 H Creatinine 6.4 H Glucose 149 H POC Glucose 128 H Lactic Acid Calcium 7.6 L Phosphorus Magnesium Ferritin Direct Bilirubin AST ALT Alkaline Phosphatase Lactate Dehydrogenase Total Creatine Kinase C-Reactive Protein Total Protein Albumin Triglycerides Arterial Blood Glucose Arterial Blood Ionized Calcium Urine Creatinine Urine Chloride Vancomycin Trough Coronavirus (PCR) Crossmatch 06/26/20 06/26/20 06/26/20 05:47 12:47 17:42 WBC RBC Hgb Hct MCHC RDW Plt Count Lymph % (Auto) [place] % (Auto) Lymph # (Auto) [place] # (Auto) Eos # (Auto) Baso # (Auto) Seg Neutrophils % Seg Neuts % (Manual) Lymphocytes % (Manual) Monocytes % (Manual) Basophils % (Manual) Nucleated RBC % Seg Neutrophils # Seg Neutrophils # Man Lymphocytes # (Manual) Monocytes # (Manual) Eosinophils # (Manual) Basophils # (Manual) PT 17.4 H INR 1.44 H APTT D-Dimer Heparin Anti-Xa Level ABG pH POC ABG pCO2 POC ABG pO2 ABG pO2 ABG HCO3 ABG O2 Saturation ABG Base Excess ABG Hemoglobin ABG Oxyhemoglobin ABG Sodium ABG Potassium ABG Chloride ABG Glucose Oxyhemoglobin Carboxyhemoglobin Sodium Potassium Chloride Carbon Dioxide BUN Creatinine Glucose POC Glucose 124 H 127 H Lactic Acid Calcium Phosphorus Magnesium Ferritin Direct Bilirubin AST ALT Alkaline Phosphatase Lactate Dehydrogenase Total Creatine Kinase C-Reactive Protein Total Protein Albumin Triglycerides Arterial Blood Glucose Arterial Blood Ionized Calcium Urine Creatinine Urine Chloride Vancomycin Trough Coronavirus (PCR) Crossmatch 06/26/20 06/27/20 06/27/20 23:30 03:32 04:00 WBC RBC Hgb 8.7 L Hct 26.4 L MCHC RDW Plt Count Lymph % (Auto) [place] % (Auto) Lymph # (Auto) [place] # (Auto) Eos # (Auto) Baso # (Auto) Seg Neutrophils % Seg Neuts % (Manual) Lymphocytes % (Manual) Monocytes % (Manual) Basophils % (Manual) Nucleated RBC % Seg Neutrophils # Seg Neutrophils # Man Lymphocytes # (Manual) Monocytes # (Manual) Eosinophils # (Manual) Basophils # (Manual) PT INR APTT D-Dimer Heparin Anti-Xa Level ABG pH 7.298 L POC ABG pCO2 POC ABG pO2 ABG pO2 ABG HCO3 ABG O2 Saturation ABG Base Excess ABG Hemoglobin 9.6 L ABG Oxyhemoglobin ABG Sodium 124.4 L ABG Potassium 6.6 H ABG Chloride ABG Glucose 136 H Oxyhemoglobin Carboxyhemoglobin Sodium Potassium Chloride Carbon Dioxide BUN Creatinine Glucose POC Glucose 123 H Lactic Acid Calcium Phosphorus Magnesium Ferritin Direct Bilirubin AST ALT Alkaline Phosphatase Lactate Dehydrogenase Total Creatine Kinase C-Reactive Protein Total Protein Albumin Triglycerides Arterial Blood Glucose 136 H Arterial Blood Ionized Calcium 4.1 L Urine Creatinine Urine Chloride Vancomycin Trough Coronavirus (PCR) Crossmatch 06/27/20 06/27/20 06/27/20 05:26 10:14 11:58 WBC RBC Hgb Hct MCHC RDW Plt Count Lymph % (Auto) [place] % (Auto) Lymph # (Auto) [place] # (Auto) Eos # (Auto) Baso # (Auto) Seg Neutrophils % Seg Neuts % (Manual) Lymphocytes % (Manual) Monocytes % (Manual) Basophils % (Manual) Nucleated RBC % Seg Neutrophils # Seg Neutrophils # Man Lymphocytes # (Manual) Monocytes # (Manual) Eosinophils # (Manual) Basophils # (Manual) PT INR APTT D-Dimer Heparin Anti-Xa Level ABG pH POC ABG pCO2 POC ABG pO2 ABG pO2 ABG HCO3 ABG O2 Saturation ABG Base Excess ABG Hemoglobin ABG Oxyhemoglobin ABG Sodium ABG Potassium ABG Chloride ABG Glucose Oxyhemoglobin Carboxyhemoglobin Sodium 136 L Potassium 7.0 H* Chloride 97.8 L Carbon Dioxide BUN 172 H Creatinine 7.4 H Glucose 129 H POC Glucose 124 H 115 H Lactic Acid Calcium 7.6 L Phosphorus Magnesium Ferritin Direct Bilirubin AST ALT Alkaline Phosphatase Lactate Dehydrogenase Total Creatine Kinase C-Reactive Protein Total Protein Albumin Triglycerides Arterial Blood Glucose Arterial Blood Ionized Calcium Urine Creatinine Urine Chloride Vancomycin Trough Coronavirus (PCR) Crossmatch 06/27/20 06/27/20 06/27/20 17:32 18:30 23:24 WBC RBC Hgb Hct MCHC RDW Plt Count Lymph % (Auto) [place] % (Auto) Lymph # (Auto) [place] # (Auto) Eos # (Auto) Baso # (Auto) Seg Neutrophils % Seg Neuts % (Manual) Lymphocytes % (Manual) Monocytes % (Manual) Basophils % (Manual) Nucleated RBC % Seg Neutrophils # Seg Neutrophils # Man Lymphocytes # (Manual) Monocytes # (Manual) Eosinophils # (Manual) Basophils # (Manual) PT INR APTT D-Dimer Heparin Anti-Xa Level ABG pH POC ABG pCO2 POC ABG pO2 ABG pO2 ABG HCO3 ABG O2 Saturation ABG Base Excess ABG Hemoglobin ABG Oxyhemoglobin ABG Sodium ABG Potassium ABG Chloride ABG Glucose Oxyhemoglobin Carboxyhemoglobin Sodium Potassium 7.3 H* Chloride Carbon Dioxide BUN Creatinine Glucose POC Glucose 122 H 116 H Lactic Acid Calcium Phosphorus Magnesium Ferritin Direct Bilirubin AST ALT Alkaline Phosphatase Lactate Dehydrogenase Total Creatine Kinase C-Reactive Protein Total Protein Albumin Triglycerides Arterial Blood Glucose Arterial Blood Ionized Calcium Urine Creatinine Urine Chloride Vancomycin Trough Coronavirus (PCR) Crossmatch 06/28/20 06/28/20 06/28/20 00:00 02:16 05:37 WBC RBC Hgb Hct MCHC RDW Plt Count Lymph % (Auto) [place] % (Auto) Lymph # (Auto) [place] # (Auto) Eos # (Auto) Baso # (Auto) Seg Neutrophils % Seg Neuts % (Manual) Lymphocytes % (Manual) Monocytes % (Manual) Basophils % (Manual) Nucleated RBC % Seg Neutrophils # Seg Neutrophils # Man Lymphocytes # (Manual) Monocytes # (Manual) Eosinophils # (Manual) Basophils # (Manual) PT INR APTT D-Dimer Heparin Anti-Xa Level ABG pH POC ABG pCO2 POC ABG pO2 79.0 L ABG pO2 ABG HCO3 ABG O2 Saturation ABG Base Excess ABG Hemoglobin 11.7 L ABG Oxyhemoglobin ABG Sodium 128.1 L ABG Potassium 6.6 H ABG Chloride ABG Glucose 124 H Oxyhemoglobin Carboxyhemoglobin Sodium Potassium 7.3 H* Chloride Carbon Dioxide BUN Creatinine Glucose POC Glucose 115 H Lactic Acid Calcium Phosphorus Magnesium Ferritin Direct Bilirubin AST ALT Alkaline Phosphatase Lactate Dehydrogenase Total Creatine Kinase C-Reactive Protein Total Protein Albumin Triglycerides Arterial Blood Glucose 124 H Arterial Blood Ionized Calcium 4.2 L Urine Creatinine Urine Chloride Vancomycin Trough Coronavirus (PCR) Crossmatch 06/28/20 06/28/20 06/28/20 10:03 10:03 11:51 WBC 33.6 H RBC 3.03 L Hgb 8.9 L Hct 27.0 L MCHC RDW Plt Count Lymph % (Auto) [place] % (Auto) Lymph # (Auto) [place] # (Auto) Eos # (Auto) Baso # (Auto) Seg Neutrophils % Seg Neuts % (Manual) Lymphocytes % (Manual) Monocytes % (Manual) Basophils % (Manual) Nucleated RBC % Seg Neutrophils # Seg Neutrophils # Man Lymphocytes # (Manual) Monocytes # (Manual) Eosinophils # (Manual) Basophils # (Manual) PT INR APTT D-Dimer Heparin Anti-Xa Level ABG pH POC ABG pCO2 POC ABG pO2 ABG pO2 ABG HCO3 ABG O2 Saturation ABG Base Excess ABG Hemoglobin ABG Oxyhemoglobin ABG Sodium ABG Potassium ABG Chloride ABG Glucose Oxyhemoglobin Carboxyhemoglobin Sodium 136 L Potassium 6.5 H* Chloride Carbon Dioxide 20 L BUN 129 H Creatinine 5.8 H Glucose 113 H POC Glucose 107 H Lactic Acid Calcium 7.6 L Phosphorus Magnesium Ferritin Direct Bilirubin AST ALT Alkaline Phosphatase Lactate Dehydrogenase Total Creatine Kinase C-Reactive Protein Total Protein Albumin Triglycerides Arterial Blood Glucose Arterial Blood Ionized Calcium Urine Creatinine Urine Chloride Vancomycin Trough Coronavirus (PCR) Crossmatch 06/28/20 06/28/20 06/29/20 17:45 Unknown 03:15 WBC RBC Hgb Hct MCHC RDW Plt Count Lymph % (Auto) [place] % (Auto) Lymph # (Auto) [place] # (Auto) Eos # (Auto) Baso # (Auto) Seg Neutrophils % Seg Neuts % (Manual) Lymphocytes % (Manual) Monocytes % (Manual) Basophils % (Manual) Nucleated RBC % Seg Neutrophils # Seg Neutrophils # Man Lymphocytes # (Manual) Monocytes # (Manual) Eosinophils # (Manual) Basophils # (Manual) PT INR APTT D-Dimer Heparin Anti-Xa Level ABG pH POC ABG pCO2 POC ABG pO2 ABG pO2 ABG HCO3 ABG O2 Saturation ABG Base Excess ABG Hemoglobin 7.8 L ABG Oxyhemoglobin ABG Sodium 127.4 L ABG Potassium 5.5 H ABG Chloride 97.0 L ABG Glucose 96 H Oxyhemoglobin Carboxyhemoglobin Sodium Potassium 5.4 H Chloride Carbon Dioxide BUN Creatinine Glucose POC Glucose 117 H Lactic Acid Calcium Phosphorus Magnesium Ferritin Direct Bilirubin AST ALT Alkaline Phosphatase Lactate Dehydrogenase Total Creatine Kinase C-Reactive Protein Total Protein Albumin Triglycerides Arterial Blood Glucose 96 H Arterial Blood Ionized Calcium 4.0 L Urine Creatinine Urine Chloride Vancomycin Trough Coronavirus (PCR) Crossmatch 06/29/20 06/29/20 06/29/20 03:45 Unknown Unknown WBC RBC Hgb Hct MCHC RDW Plt Count Lymph % (Auto) [place] % (Auto) Lymph # (Auto) [place] # (Auto) Eos # (Auto) Baso # (Auto) Seg Neutrophils % Seg Neuts % (Manual) Lymphocytes % (Manual) Monocytes % (Manual) Basophils % (Manual) Nucleated RBC % Seg Neutrophils # Seg Neutrophils # Man Lymphocytes # (Manual) Monocytes # (Manual) Eosinophils # (Manual) Basophils # (Manual) PT INR APTT D-Dimer Heparin Anti-Xa Level ABG pH POC ABG pCO2 POC ABG pO2 ABG pO2 ABG HCO3 ABG O2 Saturation ABG Base Excess ABG Hemoglobin ABG Oxyhemoglobin ABG Sodium ABG Potassium ABG Chloride ABG Glucose Oxyhemoglobin Carboxyhemoglobin Sodium 135 L Potassium 6.0 H 6.1 H* Chloride 94.8 L Carbon Dioxide BUN 109 H 114 H Creatinine 5.5 H Glucose POC Glucose Lactic Acid Calcium 7.4 L Phosphorus Magnesium Ferritin Direct Bilirubin AST 47 H ALT Alkaline Phosphatase Lactate Dehydrogenase Total Creatine Kinase C-Reactive Protein Total Protein 4.9 L Albumin 2.2 L Triglycerides Arterial Blood Glucose Arterial Blood Ionized Calcium Urine Creatinine Urine Chloride Vancomycin Trough Coronavirus (PCR) Crossmatch 06/29/20 06/29/20 06/30/20 Unknown Unknown 03:32 WBC 20.7 H RBC 2.57 L Hgb 7.6 L Hct 23.0 L MCHC RDW Plt Count Lymph % (Auto) [place] % (Auto) Lymph # (Auto) [place] # (Auto) Eos # (Auto) Baso # (Auto) Seg Neutrophils % Seg Neuts % (Manual) Lymphocytes % (Manual) Monocytes % (Manual) Basophils % (Manual) Nucleated RBC % Seg Neutrophils # Seg Neutrophils # Man Lymphocytes # (Manual) Monocytes # (Manual) Eosinophils # (Manual) Basophils # (Manual) PT INR APTT D-Dimer Heparin Anti-Xa Level ABG pH POC ABG pCO2 POC ABG pO2 ABG pO2 ABG HCO3 ABG O2 Saturation ABG Base Excess ABG Hemoglobin 11.4 L ABG Oxyhemoglobin ABG Sodium 130.1 L ABG Potassium 5.0 H ABG Chloride ABG Glucose Oxyhemoglobin Carboxyhemoglobin Sodium Potassium Chloride Carbon Dioxide BUN Creatinine Glucose POC Glucose Lactic Acid Calcium Phosphorus Magnesium Ferritin Direct Bilirubin AST ALT Alkaline Phosphatase Lactate Dehydrogenase Total Creatine Kinase 618 H C-Reactive Protein Total Protein Albumin Triglycerides Arterial Blood Glucose Arterial Blood Ionized Calcium 3.9 L Urine Creatinine Urine Chloride Vancomycin Trough Coronavirus (PCR) Crossmatch 06/30/20 06/30/20 06/30/20 03:50 03:50 11:39 WBC 13.1 H RBC Hgb Hct MCHC RDW Plt Count Lymph % (Auto) [place] % (Auto) Lymph # (Auto) [place] # (Auto) Eos # (Auto) Baso # (Auto) Seg Neutrophils % Seg Neuts % (Manual) 95.0 H Lymphocytes % (Manual) 3.0 L Monocytes % (Manual) Basophils % (Manual) Nucleated RBC % Seg Neutrophils # Seg Neutrophils # Man 12.4 H Lymphocytes # (Manual) 0.4 L Monocytes # (Manual) Eosinophils # (Manual) Basophils # (Manual) PT INR APTT D-Dimer Heparin Anti-Xa Level ABG pH POC ABG pCO2 POC ABG pO2 ABG pO2 ABG HCO3 ABG O2 Saturation ABG Base Excess ABG Hemoglobin ABG Oxyhemoglobin ABG Sodium ABG Potassium ABG Chloride ABG Glucose Oxyhemoglobin Carboxyhemoglobin Sodium 135 L Potassium 5.4 H D Chloride 93.6 L Carbon Dioxide BUN 85 H Creatinine 4.6 H Glucose POC Glucose 111 H Lactic Acid Calcium 7.1 L Phosphorus 9.40 H Magnesium Ferritin Direct Bilirubin AST ALT Alkaline Phosphatase Lactate Dehydrogenase Total Creatine Kinase C-Reactive Protein Total Protein Albumin Triglycerides Arterial Blood Glucose Arterial Blood Ionized Calcium Urine Creatinine Urine Chloride Vancomycin Trough Coronavirus (PCR) Crossmatch 06/30/20 06/30/20 07/01/20 13:12 Unknown 03:19 WBC RBC Hgb 7.8 L D Hct 23.2 L D MCHC RDW Plt Count Lymph % (Auto) [place] % (Auto) Lymph # (Auto) [place] # (Auto) Eos # (Auto) Baso # (Auto) Seg Neutrophils % Seg Neuts % (Manual) Lymphocytes % (Manual) Monocytes % (Manual) Basophils % (Manual) Nucleated RBC % Seg Neutrophils # Seg Neutrophils # Man Lymphocytes # (Manual) Monocytes # (Manual) Eosinophils # (Manual) Basophils # (Manual) PT INR APTT D-Dimer Heparin Anti-Xa Level ABG pH 7.461 H POC ABG pCO2 POC ABG pO2 77.2 L ABG pO2 ABG HCO3 ABG O2 Saturation ABG Base Excess ABG Hemoglobin 6.9 L ABG Oxyhemoglobin ABG Sodium 128.5 L ABG Potassium ABG Chloride 97.0 L ABG Glucose Oxyhemoglobin Carboxyhemoglobin Sodium Potassium Chloride Carbon Dioxide BUN Creatinine Glucose POC Glucose Lactic Acid Calcium Phosphorus Magnesium Ferritin Direct Bilirubin AST ALT Alkaline Phosphatase Lactate Dehydrogenase Total Creatine Kinase C-Reactive Protein Total Protein Albumin Triglycerides Arterial Blood Glucose Arterial Blood Ionized Calcium 3.7 L Urine Creatinine Urine Chloride Vancomycin Trough Coronavirus (PCR) Positive A Crossmatch 07/01/20 07/01/20 07/01/20 06:00 06:00 11:04 WBC 16.7 H RBC 2.16 L Hgb 6.4 L Hct 19.2 L* MCHC RDW Plt Count Lymph % (Auto) [place] % (Auto) Lymph # (Auto) [place] # (Auto) Eos # (Auto) Baso # (Auto) Seg Neutrophils % Seg Neuts % (Manual) Lymphocytes % (Manual) Monocytes % (Manual) Basophils % (Manual) Nucleated RBC % Seg Neutrophils # Seg Neutrophils # Man Lymphocytes # (Manual) Monocytes # (Manual) Eosinophils # (Manual) Basophils # (Manual) PT INR APTT D-Dimer Heparin Anti-Xa Level ABG pH POC ABG pCO2 POC ABG pO2 ABG pO2 ABG HCO3 ABG O2 Saturation ABG Base Excess ABG Hemoglobin ABG Oxyhemoglobin ABG Sodium ABG Potassium ABG Chloride ABG Glucose Oxyhemoglobin Carboxyhemoglobin Sodium 136 L Potassium Chloride 95.8 L Carbon Dioxide BUN 72 H Creatinine 4.3 H Glucose POC Glucose Lactic Acid Calcium 6.7 L Phosphorus Magnesium Ferritin Direct Bilirubin AST ALT Alkaline Phosphatase Lactate Dehydrogenase Total Creatine Kinase C-Reactive Protein Total Protein Albumin Triglycerides 250 H Arterial Blood Glucose Arterial Blood Ionized Calcium Urine Creatinine Urine Chloride Vancomycin Trough Coronavirus (PCR) Crossmatch See Detail 07/02/20 07/02/20 07/02/20 04:44 06:00 11:33 WBC 14.6 H RBC 2.47 L Hgb 7.4 L Hct 21.8 L MCHC RDW Plt Count Lymph % (Auto) [place] % (Auto) Lymph # (Auto) [place] # (Auto) Eos # (Auto) Baso # (Auto) Seg Neutrophils % Seg Neuts % (Manual) Lymphocytes % (Manual) Monocytes % (Manual) Basophils % (Manual) Nucleated RBC % Seg Neutrophils # Seg Neutrophils # Man Lymphocytes # (Manual) Monocytes # (Manual) Eosinophils # (Manual) Basophils # (Manual) PT INR APTT D-Dimer Heparin Anti-Xa Level ABG pH 7.457 H POC ABG pCO2 POC ABG pO2 79.4 L ABG pO2 ABG HCO3 ABG O2 Saturation ABG Base Excess ABG Hemoglobin 8.5 L ABG Oxyhemoglobin ABG Sodium 128.4 L ABG Potassium ABG Chloride 97.0 L ABG Glucose 100 H Oxyhemoglobin Carboxyhemoglobin Sodium 133 L Potassium 5.2 H Chloride 93.3 L Carbon Dioxide BUN 66 H Creatinine 4.1 H Glucose 102 H POC Glucose Lactic Acid Calcium 7.2 L Phosphorus Magnesium Ferritin Direct Bilirubin AST ALT Alkaline Phosphatase Lactate Dehydrogenase Total Creatine Kinase C-Reactive Protein Total Protein Albumin Triglycerides Arterial Blood Glucose 100 H Arterial Blood Ionized Calcium 3.9 L Urine Creatinine Urine Chloride Vancomycin Trough Coronavirus (PCR) Crossmatch 07/02/20 07/03/20 07/03/20 11:33 03:54 09:15 WBC 16.6 H RBC 2.44 L Hgb 7.3 L Hct 21.4 L MCHC RDW Plt Count Lymph % (Auto) [place] % (Auto) Lymph # (Auto) [place] # (Auto) Eos # (Auto) Baso # (Auto) Seg Neutrophils % Seg Neuts % (Manual) Lymphocytes % (Manual) Monocytes % (Manual) Basophils % (Manual) Nucleated RBC % Seg Neutrophils # Seg Neutrophils # Man Lymphocytes # (Manual) Monocytes # (Manual) Eosinophils # (Manual) Basophils # (Manual) PT INR APTT D-Dimer Heparin Anti-Xa Level ABG pH POC ABG pCO2 POC ABG pO2 66.1 L ABG pO2 ABG HCO3 ABG O2 Saturation ABG Base Excess ABG Hemoglobin 8.0 L ABG Oxyhemoglobin ABG Sodium 124.6 L ABG Potassium 5.5 H ABG Chloride 96.0 L ABG Glucose 111 H Oxyhemoglobin Carboxyhemoglobin Sodium Potassium Chloride Carbon Dioxide BUN Creatinine Glucose POC Glucose Lactic Acid Calcium Phosphorus Magnesium Ferritin Direct Bilirubin 0.7 H AST 94 H ALT 60 H Alkaline Phosphatase Lactate Dehydrogenase Total Creatine Kinase C-Reactive Protein Total Protein 4.4 L Albumin 1.9 L Triglycerides Arterial Blood Glucose 111 H Arterial Blood Ionized Calcium 3.8 L Urine Creatinine Urine Chloride Vancomycin Trough Coronavirus (PCR) Crossmatch 07/03/20 07/03/20 07/03/20 09:15 10:10 14:50 WBC RBC Hgb Hct MCHC RDW Plt Count Lymph % (Auto) [place] % (Auto) Lymph # (Auto) [place] # (Auto) Eos # (Auto) Baso # (Auto) Seg Neutrophils % Seg Neuts % (Manual) Lymphocytes % (Manual) Monocytes % (Manual) Basophils % (Manual) Nucleated RBC % Seg Neutrophils # Seg Neutrophils # Man Lymphocytes # (Manual) Monocytes # (Manual) Eosinophils # (Manual) Basophils # (Manual) PT INR APTT D-Dimer 6608.00 H Heparin Anti-Xa Level ABG pH POC ABG pCO2 POC ABG pO2 ABG pO2 ABG HCO3 ABG O2 Saturation ABG Base Excess ABG Hemoglobin ABG Oxyhemoglobin ABG Sodium ABG Potassium ABG Chloride ABG Glucose Oxyhemoglobin Carboxyhemoglobin Sodium 133 L Potassium 6.2 H* Chloride 93.1 L Carbon Dioxide BUN 89 H Creatinine 5.1 H Glucose POC Glucose Lactic Acid Calcium 7.0 L Phosphorus Magnesium Ferritin Direct Bilirubin AST ALT Alkaline Phosphatase Lactate Dehydrogenase Total Creatine Kinase C-Reactive Protein Total Protein Albumin Triglycerides Arterial Blood Glucose Arterial Blood Ionized Calcium Urine Creatinine Urine Chloride Vancomycin Trough Coronavirus (PCR) Positive A Crossmatch 07/03/20 07/03/20 07/03/20 14:50 14:50 14:50 WBC RBC Hgb Hct MCHC RDW Plt Count Lymph % (Auto) [place] % (Auto) Lymph # (Auto) [place] # (Auto) Eos # (Auto) Baso # (Auto) Seg Neutrophils % Seg Neuts % (Manual) Lymphocytes % (Manual) Monocytes % (Manual) Basophils % (Manual) Nucleated RBC % Seg Neutrophils # Seg Neutrophils # Man Lymphocytes # (Manual) Monocytes # (Manual) Eosinophils # (Manual) Basophils # (Manual) PT INR APTT D-Dimer Heparin Anti-Xa Level ABG pH POC ABG pCO2 POC ABG pO2 ABG pO2 ABG HCO3 ABG O2 Saturation ABG Base Excess ABG Hemoglobin ABG Oxyhemoglobin ABG Sodium ABG Potassium ABG Chloride ABG Glucose Oxyhemoglobin Carboxyhemoglobin Sodium Potassium Chloride Carbon Dioxide BUN Creatinine Glucose POC Glucose Lactic Acid < 0.20 L Calcium Phosphorus Magnesium Ferritin 1171.0 H Direct Bilirubin AST ALT Alkaline Phosphatase Lactate Dehydrogenase 525 H Total Creatine Kinase C-Reactive Protein 31.50 H Total Protein Albumin Triglycerides Arterial Blood Glucose Arterial Blood Ionized Calcium Urine Creatinine Urine Chloride Vancomycin Trough Coronavirus (PCR) Crossmatch 0207/04/20 07/04/20 16:47 05:20 05:20 WBC 11.8 H RBC 2.32 L Hgb 6.7 L Hct 20.8 L MCHC RDW Plt Count Lymph % (Auto) 2.6 L [place] % (Auto) Lymph # (Auto) 0.3 L [place] # (Auto) Eos # (Auto) Baso # (Auto) Seg Neutrophils % Seg Neuts % (Manual) Lymphocytes % (Manual) Monocytes % (Manual) Basophils % (Manual) Nucleated RBC % Seg Neutrophils # 11.0 H Seg Neutrophils # Man Lymphocytes # (Manual) Monocytes # (Manual) Eosinophils # (Manual) Basophils # (Manual) PT INR APTT D-Dimer Heparin Anti-Xa Level ABG pH POC ABG pCO2 POC ABG pO2 ABG pO2 ABG HCO3 ABG O2 Saturation ABG Base Excess ABG Hemoglobin ABG Oxyhemoglobin ABG Sodium ABG Potassium ABG Chloride ABG Glucose Oxyhemoglobin Carboxyhemoglobin Sodium Potassium 6.0 H Chloride 97.8 L Carbon Dioxide BUN 75 H Creatinine 4.5 H Glucose 121 H POC Glucose 107 H Lactic Acid Calcium 7.9 L Phosphorus Magnesium Ferritin Direct Bilirubin AST ALT Alkaline Phosphatase Lactate Dehydrogenase Total Creatine Kinase C-Reactive Protein Total Protein Albumin Triglycerides Arterial Blood Glucose Arterial Blood Ionized Calcium Urine Creatinine Urine Chloride Vancomycin Trough Coronavirus (PCR) Crossmatch 07/04/20 07/04/20 07/04/20 05:20 05:50 09:25 WBC RBC Hgb Hct MCHC RDW Plt Count Lymph % (Auto) [place] % (Auto) Lymph # (Auto) [place] # (Auto) Eos # (Auto) Baso # (Auto) Seg Neutrophils % Seg Neuts % (Manual) Lymphocytes % (Manual) Monocytes % (Manual) Basophils % (Manual) Nucleated RBC % Seg Neutrophils # Seg Neutrophils # Man Lymphocytes # (Manual) Monocytes # (Manual) Eosinophils # (Manual) Basophils # (Manual) PT INR APTT D-Dimer Heparin Anti-Xa Level ABG pH 7.324 L POC ABG pCO2 POC ABG pO2 ABG pO2 98.9 H ABG HCO3 26.8 H ABG O2 Saturation ABG Base Excess ABG Hemoglobin < 5.1 L ABG Oxyhemoglobin ABG Sodium ABG Potassium ABG Chloride ABG Glucose Oxyhemoglobin Carboxyhemoglobin Sodium Potassium Chloride Carbon Dioxide BUN Creatinine Glucose POC Glucose 114 H Lactic Acid Calcium Phosphorus Magnesium Ferritin Direct Bilirubin AST ALT Alkaline Phosphatase Lactate Dehydrogenase Total Creatine Kinase C-Reactive Protein Total Protein Albumin Triglycerides Arterial Blood Glucose Arterial Blood Ionized Calcium Urine Creatinine Urine Chloride Vancomycin Trough Coronavirus (PCR) Crossmatch See Detail 07/04/20 07/04/20 07/04/20 12:33 17:41 23:04 WBC RBC Hgb Hct MCHC RDW Plt Count Lymph % (Auto) [place] % (Auto) Lymph # (Auto) [place] # (Auto) Eos # (Auto) Baso # (Auto) Seg Neutrophils % Seg Neuts % (Manual) Lymphocytes % (Manual) Monocytes % (Manual) Basophils % (Manual) Nucleated RBC % Seg Neutrophils # Seg Neutrophils # Man Lymphocytes # (Manual) Monocytes # (Manual) Eosinophils # (Manual) Basophils # (Manual) PT INR APTT D-Dimer Heparin Anti-Xa Level ABG pH POC ABG pCO2 POC ABG pO2 ABG pO2 ABG HCO3 ABG O2 Saturation ABG Base Excess ABG Hemoglobin ABG Oxyhemoglobin ABG Sodium ABG Potassium ABG Chloride ABG Glucose Oxyhemoglobin Carboxyhemoglobin Sodium Potassium Chloride Carbon Dioxide BUN Creatinine Glucose POC Glucose 119 H 109 H 116 H Lactic Acid Calcium Phosphorus Magnesium Ferritin Direct Bilirubin AST ALT Alkaline Phosphatase Lactate Dehydrogenase Total Creatine Kinase C-Reactive Protein Total Protein Albumin Triglycerides Arterial Blood Glucose Arterial Blood Ionized Calcium Urine Creatinine Urine Chloride Vancomycin Trough Coronavirus (PCR) Crossmatch 07/05/20 07/05/20 07/05/20 04:30 08:21 08:21 WBC RBC 2.77 L Hgb 7.9 L Hct 23.9 L MCHC RDW 16.7 H Plt Count Lymph % (Auto) 7.5 L [place] % (Auto) Lymph # (Auto) 0.7 L [place] # (Auto) Eos # (Auto) Baso # (Auto) Seg Neutrophils % 85.8 H Seg Neuts % (Manual) Lymphocytes % (Manual) Monocytes % (Manual) Basophils % (Manual) Nucleated RBC % Seg Neutrophils # 7.8 H Seg Neutrophils # Man Lymphocytes # (Manual) Monocytes # (Manual) Eosinophils # (Manual) Basophils # (Manual) PT INR APTT D-Dimer Heparin Anti-Xa Level ABG pH 7.295 L POC ABG pCO2 POC ABG pO2 ABG pO2 151.9 H ABG HCO3 26.8 H ABG O2 Saturation ABG Base Excess ABG Hemoglobin 7.3 L ABG Oxyhemoglobin ABG Sodium ABG Potassium ABG Chloride ABG Glucose Oxyhemoglobin Carboxyhemoglobin Sodium Potassium Chloride Carbon Dioxide BUN Creatinine Glucose POC Glucose Lactic Acid Calcium Phosphorus Magnesium Ferritin Direct Bilirubin AST ALT Alkaline Phosphatase Lactate Dehydrogenase Total Creatine Kinase C-Reactive Protein Total Protein Albumin Triglycerides 258 H Arterial Blood Glucose Arterial Blood Ionized Calcium Urine Creatinine Urine Chloride Vancomycin Trough Coronavirus (PCR) Crossmatch 07/05/20 07/05/20 07/06/20 08:21 12:12 04:29 WBC RBC Hgb Hct MCHC RDW Plt Count Lymph % (Auto) [place] % (Auto) Lymph # (Auto) [place] # (Auto) Eos # (Auto) Baso # (Auto) Seg Neutrophils % Seg Neuts % (Manual) Lymphocytes % (Manual) Monocytes % (Manual) Basophils % (Manual) Nucleated RBC % Seg Neutrophils # Seg Neutrophils # Man Lymphocytes # (Manual) Monocytes # (Manual) Eosinophils # (Manual) Basophils # (Manual) PT INR APTT D-Dimer Heparin Anti-Xa Level ABG pH 7.291 L POC ABG pCO2 51.3 H POC ABG pO2 ABG pO2 ABG HCO3 ABG O2 Saturation ABG Base Excess ABG Hemoglobin 8.5 L ABG Oxyhemoglobin ABG Sodium 129.6 L ABG Potassium 4.8 H ABG Chloride 96.0 L ABG Glucose Oxyhemoglobin Carboxyhemoglobin Sodium 133 L Potassium 5.6 H Chloride 94.4 L Carbon Dioxide BUN 80 H Creatinine 4.2 H Glucose 114 H POC Glucose 106 H Lactic Acid Calcium 7.6 L Phosphorus Magnesium Ferritin Direct Bilirubin 0.5 H AST 75 H ALT 86 H Alkaline Phosphatase Lactate Dehydrogenase Total Creatine Kinase C-Reactive Protein Total Protein 5.6 L D Albumin 1.9 L Triglycerides Arterial Blood Glucose Arterial Blood Ionized Calcium 4.2 L Urine Creatinine Urine Chloride Vancomycin Trough Coronavirus (PCR) Crossmatch 07/06/20 07/06/20 07/06/20 11:35 11:35 12:16 WBC RBC 2.54 L Hgb 7.5 L Hct 21.5 L MCHC 35 H RDW 15.7 H Plt Count Lymph % (Auto) [place] % (Auto) Lymph # (Auto) [place] # (Auto) Eos # (Auto) Baso # (Auto) Seg Neutrophils % Seg Neuts % (Manual) Lymphocytes % (Manual) Monocytes % (Manual) Basophils % (Manual) Nucleated RBC % Seg Neutrophils # Seg Neutrophils # Man Lymphocytes # (Manual) Monocytes # (Manual) Eosinophils # (Manual) Basophils # (Manual) PT INR APTT D-Dimer Heparin Anti-Xa Level ABG pH POC ABG pCO2 POC ABG pO2 ABG pO2 ABG HCO3 ABG O2 Saturation ABG Base Excess ABG Hemoglobin ABG Oxyhemoglobin ABG Sodium ABG Potassium ABG Chloride ABG Glucose Oxyhemoglobin Carboxyhemoglobin Sodium 130 L Potassium Chloride 92.2 L Carbon Dioxide 19 L D BUN 107 H Creatinine 5.1 H Glucose 106 H POC Glucose 106 H Lactic Acid Calcium 7.5 L Phosphorus Magnesium Ferritin Direct Bilirubin AST ALT Alkaline Phosphatase Lactate Dehydrogenase Total Creatine Kinase C-Reactive Protein Total Protein Albumin Triglycerides Arterial Blood Glucose Arterial Blood Ionized Calcium Urine Creatinine Urine Chloride Vancomycin Trough Coronavirus (PCR) Crossmatch 07/06/20 07/06/20 07/06/20 17:01 21:56 23:41 WBC RBC Hgb Hct MCHC RDW Plt Count Lymph % (Auto) [place] % (Auto) Lymph # (Auto) [place] # (Auto) Eos # (Auto) Baso # (Auto) Seg Neutrophils % Seg Neuts % (Manual) Lymphocytes % (Manual) Monocytes % (Manual) Basophils % (Manual) Nucleated RBC % Seg Neutrophils # Seg Neutrophils # Man Lymphocytes # (Manual) Monocytes # (Manual) Eosinophils # (Manual) Basophils # (Manual) PT INR APTT D-Dimer Heparin Anti-Xa Level ABG pH POC ABG pCO2 POC ABG pO2 ABG pO2 ABG HCO3 ABG O2 Saturation ABG Base Excess ABG Hemoglobin ABG Oxyhemoglobin ABG Sodium ABG Potassium ABG Chloride ABG Glucose Oxyhemoglobin Carboxyhemoglobin Sodium 135 L Potassium 5.1 H Chloride Carbon Dioxide BUN 73 H Creatinine 4.0 H Glucose 112 H POC Glucose 109 H 111 H Lactic Acid Calcium 7.8 L Phosphorus Magnesium Ferritin Direct Bilirubin AST ALT Alkaline Phosphatase Lactate Dehydrogenase Total Creatine Kinase C-Reactive Protein Total Protein Albumin Triglycerides Arterial Blood Glucose Arterial Blood Ionized Calcium Urine Creatinine Urine Chloride Vancomycin Trough Coronavirus (PCR) Crossmatch 07/07/20 07/07/20 07/07/20 04:18 05:04 05:29 WBC RBC 2.46 L Hgb 7.6 L Hct 21.5 L MCHC 35 H RDW 16.5 H Plt Count Lymph % (Auto) [place] % (Auto) Lymph # (Auto) [place] # (Auto) Eos # (Auto) Baso # (Auto) Seg Neutrophils % Seg Neuts % (Manual) 82.0 H Lymphocytes % (Manual) Monocytes % (Manual) Basophils % (Manual) Nucleated RBC % 1.0 H Seg Neutrophils # Seg Neutrophils # Man Lymphocytes # (Manual) 1.1 L Monocytes # (Manual) Eosinophils # (Manual) Basophils # (Manual) PT INR APTT D-Dimer Heparin Anti-Xa Level ABG pH POC ABG pCO2 POC ABG pO2 79.6 L ABG pO2 ABG HCO3 ABG O2 Saturation ABG Base Excess ABG Hemoglobin 8.2 L ABG Oxyhemoglobin ABG Sodium 133.3 L ABG Potassium 4.7 H ABG Chloride ABG Glucose 135 H Oxyhemoglobin Carboxyhemoglobin Sodium Potassium Chloride Carbon Dioxide BUN Creatinine Glucose POC Glucose 112 H Lactic Acid Calcium Phosphorus Magnesium Ferritin Direct Bilirubin AST ALT Alkaline Phosphatase Lactate Dehydrogenase Total Creatine Kinase C-Reactive Protein Total Protein Albumin Triglycerides Arterial Blood Glucose 135 H Arterial Blood Ionized Calcium 4.5 L Urine Creatinine Urine Chloride Vancomycin Trough Coronavirus (PCR) Crossmatch 07/07/20 07/07/20 07/07/20 10:17 12:18 17:43 WBC RBC Hgb Hct MCHC RDW Plt Count Lymph % (Auto) [place] % (Auto) Lymph # (Auto) [place] # (Auto) Eos # (Auto) Baso # (Auto) Seg Neutrophils % Seg Neuts % (Manual) Lymphocytes % (Manual) Monocytes % (Manual) Basophils % (Manual) Nucleated RBC % Seg Neutrophils # Seg Neutrophils # Man Lymphocytes # (Manual) Monocytes # (Manual) Eosinophils # (Manual) Basophils # (Manual) PT INR APTT D-Dimer Heparin Anti-Xa Level ABG pH POC ABG pCO2 POC ABG pO2 ABG pO2 ABG HCO3 ABG O2 Saturation ABG Base Excess ABG Hemoglobin ABG Oxyhemoglobin ABG Sodium ABG Potassium ABG Chloride ABG Glucose Oxyhemoglobin Carboxyhemoglobin Sodium 136 L Potassium Chloride 96.8 L Carbon Dioxide BUN 82 H Creatinine 4.3 H Glucose 129 H POC Glucose 108 H 116 H Lactic Acid Calcium 7.8 L Phosphorus Magnesium Ferritin Direct Bilirubin AST ALT Alkaline Phosphatase Lactate Dehydrogenase Total Creatine Kinase C-Reactive Protein Total Protein Albumin Triglycerides Arterial Blood Glucose Arterial Blood Ionized Calcium Urine Creatinine Urine Chloride Vancomycin Trough Coronavirus (PCR) Crossmatch 07/07/20 07/08/2021 23:31 04:00 04:00 WBC RBC 2.52 L Hgb 7.3 L Hct 22.2 L MCHC RDW 16.6 H Plt Count Lymph % (Auto) 11.5 L [place] % (Auto) Lymph # (Auto) [place] # (Auto) Eos # (Auto) Baso # (Auto) Seg Neutrophils % 78.2 H Seg Neuts % (Manual) Lymphocytes % (Manual) Monocytes % (Manual) Basophils % (Manual) Nucleated RBC % Seg Neutrophils # 8.0 H Seg Neutrophils # Man Lymphocytes # (Manual) Monocytes # (Manual) Eosinophils # (Manual) Basophils # (Manual) PT INR APTT D-Dimer Heparin Anti-Xa Level ABG pH POC ABG pCO2 POC ABG pO2 ABG pO2 ABG HCO3 ABG O2 Saturation ABG Base Excess ABG Hemoglobin ABG Oxyhemoglobin ABG Sodium ABG Potassium ABG Chloride ABG Glucose Oxyhemoglobin Carboxyhemoglobin Sodium 132 L Potassium 5.4 H Chloride 92.5 L Carbon Dioxide BUN 98 H Creatinine 4.9 H Glucose 105 H POC Glucose 117 H Lactic Acid Calcium 7.9 L Phosphorus Magnesium Ferritin Direct Bilirubin AST ALT Alkaline Phosphatase Lactate Dehydrogenase Total Creatine Kinase C-Reactive Protein Total Protein Albumin Triglycerides Arterial Blood Glucose Arterial Blood Ionized Calcium Urine Creatinine Urine Chloride Vancomycin Trough Coronavirus (PCR) Crossmatch 07/08/20 07/08/20 07/08/20 04:09 11:34 17:05 WBC RBC Hgb Hct MCHC RDW Plt Count Lymph % (Auto) [place] % (Auto) Lymph # (Auto) [place] # (Auto) Eos # (Auto) Baso # (Auto) Seg Neutrophils % Seg Neuts % (Manual) Lymphocytes % (Manual) Monocytes % (Manual) Basophils % (Manual) Nucleated RBC % Seg Neutrophils # Seg Neutrophils # Man Lymphocytes # (Manual) Monocytes # (Manual) Eosinophils # (Manual) Basophils # (Manual) PT INR APTT D-Dimer Heparin Anti-Xa Level ABG pH 7.220 L POC ABG pCO2 60.5 H POC ABG pO2 ABG pO2 ABG HCO3 ABG O2 Saturation ABG Base Excess ABG Hemoglobin 8.2 L ABG Oxyhemoglobin ABG Sodium 131.3 L ABG Potassium 5.2 H ABG Chloride ABG Glucose 103 H Oxyhemoglobin Carboxyhemoglobin Sodium Potassium Chloride Carbon Dioxide BUN Creatinine Glucose POC Glucose 140 H 125 H Lactic Acid Calcium Phosphorus Magnesium Ferritin Direct Bilirubin AST ALT Alkaline Phosphatase Lactate Dehydrogenase Total Creatine Kinase C-Reactive Protein Total Protein Albumin Triglycerides Arterial Blood Glucose 103 H Arterial Blood Ionized Calcium 4.3 L Urine Creatinine Urine Chloride Vancomycin Trough Coronavirus (PCR) Crossmatch 07/08/20 07/08/20 07/09/20 20:21 23:43 05:10 WBC RBC Hgb Hct MCHC RDW Plt Count Lymph % (Auto) [place] % (Auto) Lymph # (Auto) [place] # (Auto) Eos # (Auto) Baso # (Auto) Seg Neutrophils % Seg Neuts % (Manual) Lymphocytes % (Manual) Monocytes % (Manual) Basophils % (Manual) Nucleated RBC % Seg Neutrophils # Seg Neutrophils # Man Lymphocytes # (Manual) Monocytes # (Manual) Eosinophils # (Manual) Basophils # (Manual) PT INR APTT D-Dimer Heparin Anti-Xa Level ABG pH 7.20 L POC ABG pCO2 69.8 H POC ABG pO2 138.9 H 76.1 L ABG pO2 ABG HCO3 ABG O2 Saturation ABG Base Excess ABG Hemoglobin 11.9 L 8.4 L ABG Oxyhemoglobin ABG Sodium 133.1 L 131.2 L ABG Potassium 5.0 H 4.7 H ABG Chloride ABG Glucose 120 H 102 H Oxyhemoglobin Carboxyhemoglobin Sodium Potassium Chloride Carbon Dioxide BUN Creatinine Glucose POC Glucose 118 H Lactic Acid Calcium Phosphorus Magnesium Ferritin Direct Bilirubin AST ALT Alkaline Phosphatase Lactate Dehydrogenase Total Creatine Kinase C-Reactive Protein Total Protein Albumin Triglycerides Arterial Blood Glucose 120 H 102 H Arterial Blood Ionized Calcium 4.4 L 4.3 L Urine Creatinine Urine Chloride Vancomycin Trough Coronavirus (PCR) Crossmatch 07/09/20 07/09/20 07/09/20 11:51 17:04 21:00 WBC RBC Hgb Hct MCHC RDW Plt Count Lymph % (Auto) [place] % (Auto) Lymph # (Auto) [place] # (Auto) Eos # (Auto) Baso # (Auto) Seg Neutrophils % Seg Neuts % (Manual) Lymphocytes % (Manual) Monocytes % (Manual) Basophils % (Manual) Nucleated RBC % Seg Neutrophils # Seg Neutrophils # Man Lymphocytes # (Manual) Monocytes # (Manual) Eosinophils # (Manual) Basophils # (Manual) PT INR APTT D-Dimer Heparin Anti-Xa Level ABG pH POC ABG pCO2 POC ABG pO2 114.2 H ABG pO2 ABG HCO3 ABG O2 Saturation ABG Base Excess ABG Hemoglobin 7.8 L ABG Oxyhemoglobin ABG Sodium 132.3 L ABG Potassium 4.6 H ABG Chloride ABG Glucose Oxyhemoglobin Carboxyhemoglobin Sodium Potassium Chloride Carbon Dioxide BUN Creatinine Glucose POC Glucose 113 H 111 H Lactic Acid Calcium Phosphorus Magnesium Ferritin Direct Bilirubin AST ALT Alkaline Phosphatase Lactate Dehydrogenase Total Creatine Kinase C-Reactive Protein Total Protein Albumin Triglycerides Arterial Blood Glucose Arterial Blood Ionized Calcium 4.4 L Urine Creatinine Urine Chloride Vancomycin Trough Coronavirus (PCR) Crossmatch 07/10/20 07/10/20 07/10/20 03:49 03:55 03:55 WBC 18.1 H RBC 2.37 L Hgb 6.8 L Hct 20.7 L MCHC RDW 16.9 H Plt Count Lymph % (Auto) [place] % (Auto) Lymph # (Auto) [place] # (Auto) Eos # (Auto) Baso # (Auto) Seg Neutrophils % Seg Neuts % (Manual) 79.0 H Lymphocytes % (Manual) 10.0 L Monocytes % (Manual) Basophils % (Manual) Nucleated RBC % 1.0 H Seg Neutrophils # Seg Neutrophils # Man 14.3 H Lymphocytes # (Manual) Monocytes # (Manual) Eosinophils # (Manual) 0.7 H Basophils # (Manual) PT INR APTT D-Dimer Heparin Anti-Xa Level ABG pH POC ABG pCO2 POC ABG pO2 ABG pO2 ABG HCO3 ABG O2 Saturation ABG Base Excess ABG Hemoglobin 7.7 L ABG Oxyhemoglobin ABG Sodium 130.3 L ABG Potassium 4.6 H ABG Chloride ABG Glucose Oxyhemoglobin Carboxyhemoglobin Sodium 136 L Potassium Chloride 96.0 L Carbon Dioxide BUN 76 H Creatinine 3.6 H Glucose POC Glucose Lactic Acid Calcium 7.4 L Phosphorus Magnesium Ferritin Direct Bilirubin AST ALT Alkaline Phosphatase Lactate Dehydrogenase Total Creatine Kinase C-Reactive Protein Total Protein Albumin Triglycerides Arterial Blood Glucose Arterial Blood Ionized Calcium 4.2 L Urine Creatinine Urine Chloride Vancomycin Trough Coronavirus (PCR) Crossmatch 07/10/20 07/11/20 07/11/20 13:24 04:08 06:52 WBC 26.0 H RBC 2.91 L Hgb 8.2 L Hct 24.8 L MCHC RDW 17.2 H Plt Count Lymph % (Auto) [place] % (Auto) Lymph # (Auto) [place] # (Auto) Eos # (Auto) Baso # (Auto) Seg Neutrophils % Seg Neuts % (Manual) Lymphocytes % (Manual) 1.0 L Monocytes % (Manual) 11.0 H Basophils % (Manual) Nucleated RBC % Seg Neutrophils # Seg Neutrophils # Man 16.9 H Lymphocytes # (Manual) 0.3 L Monocytes # (Manual) 2.9 H Eosinophils # (Manual) 1.0 H Basophils # (Manual) PT INR APTT D-Dimer Heparin Anti-Xa Level ABG pH POC ABG pCO2 POC ABG pO2 ABG pO2 ABG HCO3 ABG O2 Saturation ABG Base Excess ABG Hemoglobin 8.5 L ABG Oxyhemoglobin ABG Sodium 130.6 L ABG Potassium 4.9 H ABG Chloride ABG Glucose 105 H Oxyhemoglobin Carboxyhemoglobin Sodium Potassium Chloride Carbon Dioxide BUN Creatinine Glucose POC Glucose Lactic Acid Calcium Phosphorus Magnesium Ferritin Direct Bilirubin AST ALT Alkaline Phosphatase Lactate Dehydrogenase Total Creatine Kinase C-Reactive Protein Total Protein Albumin Triglycerides Arterial Blood Glucose 105 H Arterial Blood Ionized Calcium 4.1 L Urine Creatinine Urine Chloride Vancomycin Trough Coronavirus (PCR) Crossmatch See Detail 07/11/20 07/11/20 07/11/20 06:52 08:48 11:39 WBC RBC Hgb Hct MCHC RDW Plt Count Lymph % (Auto) [place] % (Auto) Lymph # (Auto) [place] # (Auto) Eos # (Auto) Baso # (Auto) Seg Neutrophils % Seg Neuts % (Manual) Lymphocytes % (Manual) Monocytes % (Manual) Basophils % (Manual) Nucleated RBC % Seg Neutrophils # Seg Neutrophils # Man Lymphocytes # (Manual) Monocytes # (Manual) Eosinophils # (Manual) Basophils # (Manual) PT INR APTT D-Dimer Heparin Anti-Xa Level ABG pH POC ABG pCO2 POC ABG pO2 ABG pO2 ABG HCO3 ABG O2 Saturation ABG Base Excess ABG Hemoglobin ABG Oxyhemoglobin ABG Sodium ABG Potassium ABG Chloride ABG Glucose Oxyhemoglobin Carboxyhemoglobin Sodium 133 L 134 L Potassium 5.3 H Chloride 93.5 L 94.8 L Carbon Dioxide BUN 101 H 99 H Creatinine 4.5 H 4.6 H Glucose 102 H POC Glucose 116 H Lactic Acid Calcium 7.8 L 7.6 L Phosphorus Magnesium Ferritin Direct Bilirubin AST ALT Alkaline Phosphatase Lactate Dehydrogenase Total Creatine Kinase C-Reactive Protein Total Protein Albumin Triglycerides Arterial Blood Glucose Arterial Blood Ionized Calcium Urine Creatinine Urine Chloride Vancomycin Trough Coronavirus (PCR) Crossmatch 07/11/20 07/12/20 07/12/20 17:23 00:04 03:20 WBC RBC Hgb Hct MCHC RDW Plt Count Lymph % (Auto) [place] % (Auto) Lymph # (Auto) [place] # (Auto) Eos # (Auto) Baso # (Auto) Seg Neutrophils % Seg Neuts % (Manual) Lymphocytes % (Manual) Monocytes % (Manual) Basophils % (Manual) Nucleated RBC % Seg Neutrophils # Seg Neutrophils # Man Lymphocytes # (Manual) Monocytes # (Manual) Eosinophils # (Manual) Basophils # (Manual) PT INR APTT D-Dimer Heparin Anti-Xa Level ABG pH POC ABG pCO2 49.1 H POC ABG pO2 130.3 H ABG pO2 ABG HCO3 ABG O2 Saturation ABG Base Excess ABG Hemoglobin 8.7 L ABG Oxyhemoglobin ABG Sodium 135.2 L ABG Potassium 4.7 H ABG Chloride ABG Glucose 128 H Oxyhemoglobin Carboxyhemoglobin Sodium Potassium Chloride Carbon Dioxide BUN Creatinine Glucose POC Glucose 142 H 113 H Lactic Acid Calcium Phosphorus Magnesium Ferritin Direct Bilirubin AST ALT Alkaline Phosphatase Lactate Dehydrogenase Total Creatine Kinase C-Reactive Protein Total Protein Albumin Triglycerides Arterial Blood Glucose 128 H Arterial Blood Ionized Calcium 4.4 L Urine Creatinine Urine Chloride Vancomycin Trough Coronavirus (PCR) Crossmatch 07/12/20 07/12/20 07/12/20 03:40 03:40 04:00 WBC 24.3 H RBC 2.83 L Hgb 8.0 L Hct 24.9 L MCHC RDW 17.7 H Plt Count Lymph % (Auto) 5.6 L [place] % (Auto) 7.4 H Lymph # (Auto) [place] # (Auto) 1.8 H Eos # (Auto) 0.7 H Baso # (Auto) Seg Neutrophils % 83.9 H Seg Neuts % (Manual) Lymphocytes % (Manual) Monocytes % (Manual) Basophils % (Manual) Nucleated RBC % Seg Neutrophils # 20.4 H Seg Neutrophils # Man Lymphocytes # (Manual) Monocytes # (Manual) Eosinophils # (Manual) Basophils # (Manual) PT INR APTT D-Dimer Heparin Anti-Xa Level ABG pH POC ABG pCO2 POC ABG pO2 ABG pO2 ABG HCO3 ABG O2 Saturation ABG Base Excess ABG Hemoglobin ABG Oxyhemoglobin ABG Sodium ABG Potassium ABG Chloride ABG Glucose Oxyhemoglobin Carboxyhemoglobin Sodium 134 L Potassium Chloride 95.5 L Carbon Dioxide BUN 79 H Creatinine 3.7 H Glucose 127 H POC Glucose Lactic Acid Calcium 7.8 L Phosphorus Magnesium Ferritin Direct Bilirubin AST ALT Alkaline Phosphatase Lactate Dehydrogenase Total Creatine Kinase C-Reactive Protein Total Protein Albumin Triglycerides 246 H Arterial Blood Glucose Arterial Blood Ionized Calcium Urine Creatinine Urine Chloride Vancomycin Trough Coronavirus (PCR) Crossmatch 07/12/20 07/12/20 07/12/20 05:48 11:50 17:29 WBC RBC Hgb Hct MCHC RDW Plt Count Lymph % (Auto) [place] % (Auto) Lymph # (Auto) [place] # (Auto) Eos # (Auto) Baso # (Auto) Seg Neutrophils % Seg Neuts % (Manual) Lymphocytes % (Manual) Monocytes % (Manual) Basophils % (Manual) Nucleated RBC % Seg Neutrophils # Seg Neutrophils # Man Lymphocytes # (Manual) Monocytes # (Manual) Eosinophils # (Manual) Basophils # (Manual) PT INR APTT D-Dimer Heparin Anti-Xa Level ABG pH POC ABG pCO2 POC ABG pO2 ABG pO2 ABG HCO3 ABG O2 Saturation ABG Base Excess ABG Hemoglobin ABG Oxyhemoglobin ABG Sodium ABG Potassium ABG Chloride ABG Glucose Oxyhemoglobin Carboxyhemoglobin Sodium Potassium Chloride Carbon Dioxide BUN Creatinine Glucose POC Glucose 136 H 113 H 110 H Lactic Acid Calcium Phosphorus Magnesium Ferritin Direct Bilirubin AST ALT Alkaline Phosphatase Lactate Dehydrogenase Total Creatine Kinase C-Reactive Protein Total Protein Albumin Triglycerides Arterial Blood Glucose Arterial Blood Ionized Calcium Urine Creatinine Urine Chloride Vancomycin Trough Coronavirus (PCR) Crossmatch 07/12/20 07/13/20 07/13/20 23:43 03:11 06:59 WBC RBC Hgb Hct MCHC RDW Plt Count Lymph % (Auto) [place] % (Auto) Lymph # (Auto) [place] # (Auto) Eos # (Auto) Baso # (Auto) Seg Neutrophils % Seg Neuts % (Manual) Lymphocytes % (Manual) Monocytes % (Manual) Basophils % (Manual) Nucleated RBC % Seg Neutrophils # Seg Neutrophils # Man Lymphocytes # (Manual) Monocytes # (Manual) Eosinophils # (Manual) Basophils # (Manual) PT INR APTT D-Dimer Heparin Anti-Xa Level ABG pH POC ABG pCO2 49.0 H POC ABG pO2 69.6 L ABG pO2 ABG HCO3 ABG O2 Saturation ABG Base Excess ABG Hemoglobin 8.5 L ABG Oxyhemoglobin 90.5 L ABG Sodium 133.6 L ABG Potassium 5.1 H ABG Chloride ABG Glucose 104 H Oxyhemoglobin Carboxyhemoglobin Sodium 133 L Potassium 5.7 H Chloride 96.3 L Carbon Dioxide 20 L D BUN 102 H Creatinine 4.4 H Glucose 101 H POC Glucose 120 H Lactic Acid Calcium 7.9 L Phosphorus Magnesium Ferritin Direct Bilirubin AST 61 H ALT 85 H Alkaline Phosphatase 144 H Lactate Dehydrogenase Total Creatine Kinase C-Reactive Protein Total Protein 5.4 L Albumin 2.0 L Triglycerides Arterial Blood Glucose 104 H Arterial Blood Ionized Calcium 4.3 L Urine Creatinine Urine Chloride Vancomycin Trough Coronavirus (PCR) Crossmatch 07/13/20 07/13/20 07/13/20 08:48 12:14 15:12 WBC 27.5 H RBC 3.03 L Hgb 8.7 L Hct 27.0 L MCHC RDW 18.0 H Plt Count Lymph % (Auto) [place] % (Auto) Lymph # (Auto) [place] # (Auto) Eos # (Auto) Baso # (Auto) Seg Neutrophils % Seg Neuts % (Manual) Lymphocytes % (Manual) Monocytes % (Manual) Basophils % (Manual) Nucleated RBC % Seg Neutrophils # Seg Neutrophils # Man Lymphocytes # (Manual) Monocytes # (Manual) Eosinophils # (Manual) Basophils # (Manual) PT INR APTT D-Dimer Heparin Anti-Xa Level ABG pH POC ABG pCO2 POC ABG pO2 ABG pO2 ABG HCO3 ABG O2 Saturation ABG Base Excess ABG Hemoglobin ABG Oxyhemoglobin ABG Sodium ABG Potassium ABG Chloride ABG Glucose Oxyhemoglobin Carboxyhemoglobin Sodium Potassium 5.5 H Chloride Carbon Dioxide BUN 88 H Creatinine 3.8 H Glucose 133 H POC Glucose 134 H Lactic Acid Calcium 7.5 L Phosphorus Magnesium Ferritin Direct Bilirubin AST ALT Alkaline Phosphatase Lactate Dehydrogenase Total Creatine Kinase C-Reactive Protein Total Protein Albumin Triglycerides Arterial Blood Glucose Arterial Blood Ionized Calcium Urine Creatinine Urine Chloride Vancomycin Trough Coronavirus (PCR) Crossmatch 07/13/20 07/13/20 07/13/20 16:46 16:47 18:46 WBC RBC Hgb 7.4 L Hct 22.1 L MCHC RDW Plt Count Lymph % (Auto) [place] % (Auto) Lymph # (Auto) [place] # (Auto) Eos # (Auto) Baso # (Auto) Seg Neutrophils % Seg Neuts % (Manual) Lymphocytes % (Manual) Monocytes % (Manual) Basophils % (Manual) Nucleated RBC % Seg Neutrophils # Seg Neutrophils # Man Lymphocytes # (Manual) Monocytes # (Manual) Eosinophils # (Manual) Basophils # (Manual) PT INR APTT D-Dimer Heparin Anti-Xa Level ABG pH POC ABG pCO2 POC ABG pO2 ABG pO2 ABG HCO3 ABG O2 Saturation ABG Base Excess ABG Hemoglobin ABG Oxyhemoglobin ABG Sodium ABG Potassium ABG Chloride ABG Glucose Oxyhemoglobin Carboxyhemoglobin Sodium Potassium Chloride Carbon Dioxide BUN Creatinine Glucose POC Glucose 118 H Lactic Acid Calcium Phosphorus Magnesium Ferritin Direct Bilirubin AST ALT Alkaline Phosphatase Lactate Dehydrogenase Total Creatine Kinase C-Reactive Protein Total Protein Albumin Triglycerides Arterial Blood Glucose Arterial Blood Ionized Calcium Urine Creatinine Urine Chloride Vancomycin Trough Coronavirus (PCR) Crossmatch See Detail 07/13/20 07/14/20 07/14/20 23:34 04:25 12:21 WBC RBC Hgb Hct MCHC RDW Plt Count Lymph % (Auto) [place] % (Auto) Lymph # (Auto) [place] # (Auto) Eos # (Auto) Baso # (Auto) Seg Neutrophils % Seg Neuts % (Manual) Lymphocytes % (Manual) Monocytes % (Manual) Basophils % (Manual) Nucleated RBC % Seg Neutrophils # Seg Neutrophils # Man Lymphocytes # (Manual) Monocytes # (Manual) Eosinophils # (Manual) Basophils # (Manual) PT INR APTT D-Dimer Heparin Anti-Xa Level ABG pH POC ABG pCO2 POC ABG pO2 ABG pO2 ABG HCO3 ABG O2 Saturation ABG Base Excess ABG Hemoglobin 8.9 L ABG Oxyhemoglobin ABG Sodium 133.1 L ABG Potassium 4.7 H ABG Chloride ABG Glucose 113 H Oxyhemoglobin Carboxyhemoglobin Sodium Potassium Chloride Carbon Dioxide BUN Creatinine Glucose POC Glucose 109 H 109 H Lactic Acid Calcium Phosphorus Magnesium Ferritin Direct Bilirubin AST ALT Alkaline Phosphatase Lactate Dehydrogenase Total Creatine Kinase C-Reactive Protein Total Protein Albumin Triglycerides Arterial Blood Glucose 113 H Arterial Blood Ionized Calcium 4.4 L Urine Creatinine Urine Chloride Vancomycin Trough Coronavirus (PCR) Crossmatch 07/14/20 07/14/20 07/14/20 16:44 16:44 20:20 WBC 30.1 H RBC 2.60 L Hgb 7.4 L 5.6 L* Hct 23.0 L 18.1 L* MCHC RDW 18.0 H Plt Count Lymph % (Auto) [place] % (Auto) Lymph # (Auto) [place] # (Auto) Eos # (Auto) Baso # (Auto) Seg Neutrophils % Seg Neuts % (Manual) 78.0 H Lymphocytes % (Manual) 5.0 L Monocytes % (Manual) Basophils % (Manual) Nucleated RBC % Seg Neutrophils # Seg Neutrophils # Man 23.5 H Lymphocytes # (Manual) Monocytes # (Manual) 0.9 H Eosinophils # (Manual) Basophils # (Manual) PT 15.6 H INR 1.26 H APTT D-Dimer Heparin Anti-Xa Level ABG pH POC ABG pCO2 POC ABG pO2 ABG pO2 ABG HCO3 ABG O2 Saturation ABG Base Excess ABG Hemoglobin ABG Oxyhemoglobin ABG Sodium ABG Potassium ABG Chloride ABG Glucose Oxyhemoglobin Carboxyhemoglobin Sodium Potassium Chloride Carbon Dioxide BUN Creatinine Glucose POC Glucose Lactic Acid Calcium Phosphorus Magnesium Ferritin Direct Bilirubin AST ALT Alkaline Phosphatase Lactate Dehydrogenase Total Creatine Kinase C-Reactive Protein Total Protein Albumin Triglycerides Arterial Blood Glucose Arterial Blood Ionized Calcium Urine Creatinine Urine Chloride Vancomycin Trough Coronavirus (PCR) Crossmatch 07/14/20 07/14/20 07/15/20 21:19 23:45 04:13 WBC RBC Hgb Hct MCHC RDW Plt Count Lymph % (Auto) [place] % (Auto) Lymph # (Auto) [place] # (Auto) Eos # (Auto) Baso # (Auto) Seg Neutrophils % Seg Neuts % (Manual) Lymphocytes % (Manual) Monocytes % (Manual) Basophils % (Manual) Nucleated RBC % Seg Neutrophils # Seg Neutrophils # Man Lymphocytes # (Manual) Monocytes # (Manual) Eosinophils # (Manual) Basophils # (Manual) PT INR APTT D-Dimer Heparin Anti-Xa Level ABG pH POC ABG pCO2 POC ABG pO2 ABG pO2 ABG HCO3 ABG O2 Saturation ABG Base Excess ABG Hemoglobin 5.8 L 6.0 L ABG Oxyhemoglobin 93.8 L ABG Sodium 132.2 L 130.3 L ABG Potassium 5.5 H 5.8 H ABG Chloride ABG Glucose 118 H 122 H Oxyhemoglobin Carboxyhemoglobin Sodium Potassium Chloride Carbon Dioxide BUN Creatinine Glucose POC Glucose 126 H Lactic Acid Calcium Phosphorus Magnesium Ferritin Direct Bilirubin AST ALT Alkaline Phosphatase Lactate Dehydrogenase Total Creatine Kinase C-Reactive Protein Total Protein Albumin Triglycerides Arterial Blood Glucose 118 H 122 H Arterial Blood Ionized Calcium 4.3 L 4.2 L Urine Creatinine Urine Chloride Vancomycin Trough Coronavirus (PCR) Crossmatch 07/15/20 07/15/20 07/15/20 08:21 08:21 08:38 WBC 45.5 H* RBC 2.42 L Hgb 7.1 L Hct 21.5 L MCHC RDW 16.5 H Plt Count Lymph % (Auto) [place] % (Auto) Lymph # (Auto) [place] # (Auto) Eos # (Auto) Baso # (Auto) Seg Neutrophils % Seg Neuts % (Manual) 89.0 H Lymphocytes % (Manual) 7.0 L Monocytes % (Manual) Basophils % (Manual) Nucleated RBC % Seg Neutrophils # Seg Neutrophils # Man 40.5 H Lymphocytes # (Manual) Monocytes # (Manual) 1.8 H Eosinophils # (Manual) Basophils # (Manual) PT 17.6 H INR 1.46 H APTT D-Dimer Heparin Anti-Xa Level ABG pH POC ABG pCO2 POC ABG pO2 ABG pO2 ABG HCO3 ABG O2 Saturation ABG Base Excess ABG Hemoglobin ABG Oxyhemoglobin ABG Sodium ABG Potassium ABG Chloride ABG Glucose Oxyhemoglobin Carboxyhemoglobin Sodium 131 L Potassium 6.0 H Chloride 94.6 L Carbon Dioxide 20 L BUN 116 H Creatinine 4.6 H Glucose 123 H POC Glucose Lactic Acid Calcium 7.6 L Phosphorus Magnesium Ferritin Direct Bilirubin AST ALT Alkaline Phosphatase Lactate Dehydrogenase Total Creatine Kinase C-Reactive Protein Total Protein Albumin Triglycerides Arterial Blood Glucose Arterial Blood Ionized Calcium Urine Creatinine Urine Chloride Vancomycin Trough Coronavirus (PCR) Crossmatch 07/15/20 07/15/20 07/15/20 11:29 17:23 18:52 WBC RBC Hgb Hct MCHC RDW Plt Count Lymph % (Auto) [place] % (Auto) Lymph # (Auto) [place] # (Auto) Eos # (Auto) Baso # (Auto) Seg Neutrophils % Seg Neuts % (Manual) Lymphocytes % (Manual) Monocytes % (Manual) Basophils % (Manual) Nucleated RBC % Seg Neutrophils # Seg Neutrophils # Man Lymphocytes # (Manual) Monocytes # (Manual) Eosinophils # (Manual) Basophils # (Manual) PT INR APTT D-Dimer Heparin Anti-Xa Level ABG pH POC ABG pCO2 POC ABG pO2 ABG pO2 ABG HCO3 ABG O2 Saturation ABG Base Excess ABG Hemoglobin ABG Oxyhemoglobin ABG Sodium ABG Potassium ABG Chloride ABG Glucose Oxyhemoglobin Carboxyhemoglobin Sodium Potassium Chloride 97.9 L Carbon Dioxide BUN 78 H Creatinine 3.1 H Glucose 114 H POC Glucose 181 H 120 H Lactic Acid Calcium 7.3 L Phosphorus Magnesium Ferritin Direct Bilirubin AST ALT Alkaline Phosphatase Lactate Dehydrogenase Total Creatine Kinase C-Reactive Protein Total Protein Albumin Triglycerides Arterial Blood Glucose Arterial Blood Ionized Calcium Urine Creatinine Urine Chloride Vancomycin Trough Coronavirus (PCR) Crossmatch 07/15/20 07/16/20 07/16/20 18:52 01:10 03:38 WBC RBC Hgb 9.9 L 8.5 L Hct 29.8 L D 24.7 L MCHC RDW Plt Count Lymph % (Auto) [place] % (Auto) Lymph # (Auto) [place] # (Auto) Eos # (Auto) Baso # (Auto) Seg Neutrophils % Seg Neuts % (Manual) Lymphocytes % (Manual) Monocytes % (Manual) Basophils % (Manual) Nucleated RBC % Seg Neutrophils # Seg Neutrophils # Man Lymphocytes # (Manual) Monocytes # (Manual) Eosinophils # (Manual) Basophils # (Manual) PT INR APTT D-Dimer Heparin Anti-Xa Level ABG pH 7.314 L POC ABG pCO2 48.5 H POC ABG pO2 58.9 L ABG pO2 ABG HCO3 ABG O2 Saturation ABG Base Excess ABG Hemoglobin 8.7 L ABG Oxyhemoglobin 86.7 L ABG Sodium 132.7 L ABG Potassium 5.2 H ABG Chloride ABG Glucose 99 H Oxyhemoglobin Carboxyhemoglobin Sodium Potassium Chloride Carbon Dioxide BUN Creatinine Glucose POC Glucose Lactic Acid Calcium Phosphorus Magnesium Ferritin Direct Bilirubin AST ALT Alkaline Phosphatase Lactate Dehydrogenase Total Creatine Kinase C-Reactive Protein Total Protein Albumin Triglycerides Arterial Blood Glucose 99 H Arterial Blood Ionized Calcium 3.9 L Urine Creatinine Urine Chloride Vancomycin Trough Coronavirus (PCR) Crossmatch 07/16/20 07/16/20 07/16/20 04:28 04:28 07:29 WBC 48.9 H* RBC 2.86 L Hgb 8.6 L 7.9 L Hct 25.4 L 24.4 L MCHC RDW 15.6 H Plt Count Lymph % (Auto) [place] % (Auto) Lymph # (Auto) [place] # (Auto) Eos # (Auto) Baso # (Auto) Seg Neutrophils % Seg Neuts % (Manual) Lymphocytes % (Manual) Monocytes % (Manual) Basophils % (Manual) Nucleated RBC % Seg Neutrophils # Seg Neutrophils # Man Lymphocytes # (Manual) Monocytes # (Manual) Eosinophils # (Manual) Basophils # (Manual) PT INR APTT D-Dimer Heparin Anti-Xa Level ABG pH POC ABG pCO2 POC ABG pO2 ABG pO2 ABG HCO3 ABG O2 Saturation ABG Base Excess ABG Hemoglobin ABG Oxyhemoglobin ABG Sodium ABG Potassium ABG Chloride ABG Glucose Oxyhemoglobin Carboxyhemoglobin Sodium 136 L Potassium 5.4 H Chloride 95.0 L Carbon Dioxide BUN 85 H Creatinine 3.4 H Glucose 66 L POC Glucose Lactic Acid Calcium 6.8 L Phosphorus Magnesium Ferritin Direct Bilirubin AST ALT Alkaline Phosphatase Lactate Dehydrogenase Total Creatine Kinase C-Reactive Protein Total Protein Albumin Triglycerides Arterial Blood Glucose Arterial Blood Ionized Calcium Urine Creatinine Urine Chloride Vancomycin Trough Coronavirus (PCR) Crossmatch 07/16/20 07/16/20 07/16/20 11:52 18:06 18:08 WBC RBC Hgb 7.4 L Hct 22.5 L MCHC RDW Plt Count Lymph % (Auto) [place] % (Auto) Lymph # (Auto) [place] # (Auto) Eos # (Auto) Baso # (Auto) Seg Neutrophils % Seg Neuts % (Manual) Lymphocytes % (Manual) Monocytes % (Manual) Basophils % (Manual) Nucleated RBC % Seg Neutrophils # Seg Neutrophils # Man Lymphocytes # (Manual) Monocytes # (Manual) Eosinophils # (Manual) Basophils # (Manual) PT INR APTT D-Dimer Heparin Anti-Xa Level ABG pH POC ABG pCO2 POC ABG pO2 ABG pO2 ABG HCO3 ABG O2 Saturation ABG Base Excess ABG Hemoglobin ABG Oxyhemoglobin ABG Sodium ABG Potassium ABG Chloride ABG Glucose Oxyhemoglobin Carboxyhemoglobin Sodium Potassium Chloride Carbon Dioxide BUN Creatinine Glucose POC Glucose 124 H 108 H Lactic Acid Calcium Phosphorus Magnesium Ferritin Direct Bilirubin AST ALT Alkaline Phosphatase Lactate Dehydrogenase Total Creatine Kinase C-Reactive Protein Total Protein Albumin Triglycerides Arterial Blood Glucose Arterial Blood Ionized Calcium Urine Creatinine Urine Chloride Vancomycin Trough Coronavirus (PCR) Crossmatch 07/17/20 07/17/20 07/17/20 03:27 15:25 15:25 WBC 46.2 H* RBC 2.05 L Hgb 6.1 L Hct 18.4 L* MCHC RDW 15.6 H Plt Count Lymph % (Auto) [place] % (Auto) Lymph # (Auto) [place] # (Auto) Eos # (Auto) Baso # (Auto) Seg Neutrophils % Seg Neuts % (Manual) 87.0 H Lymphocytes % (Manual) 3.0 L Monocytes % (Manual) Basophils % (Manual) Nucleated RBC % Seg Neutrophils # Seg Neutrophils # Man 40.2 H Lymphocytes # (Manual) Monocytes # (Manual) 3.2 H Eosinophils # (Manual) Basophils # (Manual) PT 18.2 H INR 1.52 H APTT D-Dimer Heparin Anti-Xa Level ABG pH 7.313 L POC ABG pCO2 50.9 H POC ABG pO2 ABG pO2 ABG HCO3 ABG O2 Saturation ABG Base Excess ABG Hemoglobin 7.5 L ABG Oxyhemoglobin ABG Sodium 131.8 L ABG Potassium 4.6 H ABG Chloride ABG Glucose 105 H Oxyhemoglobin Carboxyhemoglobin Sodium Potassium Chloride Carbon Dioxide BUN Creatinine Glucose POC Glucose Lactic Acid Calcium Phosphorus Magnesium Ferritin Direct Bilirubin AST ALT Alkaline Phosphatase Lactate Dehydrogenase Total Creatine Kinase C-Reactive Protein Total Protein Albumin Triglycerides Arterial Blood Glucose 105 H Arterial Blood Ionized Calcium 3.9 L Urine Creatinine Urine Chloride Vancomycin Trough Coronavirus (PCR) Crossmatch 07/17/20 07/18/20 07/18/20 Unknown 03:10 05:06 WBC 37.9 H RBC 2.91 L Hgb 8.5 L Hct 25.6 L D MCHC RDW Plt Count Lymph % (Auto) [place] % (Auto) Lymph # (Auto) [place] # (Auto) Eos # (Auto) Baso # (Auto) Seg Neutrophils % Seg Neuts % (Manual) Lymphocytes % (Manual) Monocytes % (Manual) Basophils % (Manual) Nucleated RBC % Seg Neutrophils # Seg Neutrophils # Man Lymphocytes # (Manual) Monocytes # (Manual) Eosinophils # (Manual) Basophils # (Manual) PT INR APTT D-Dimer Heparin Anti-Xa Level ABG pH POC ABG pCO2 POC ABG pO2 114.9 H ABG pO2 ABG HCO3 ABG O2 Saturation ABG Base Excess ABG Hemoglobin 8.6 L ABG Oxyhemoglobin ABG Sodium 130.6 L ABG Potassium 4.9 H ABG Chloride ABG Glucose Oxyhemoglobin Carboxyhemoglobin Sodium Potassium Chloride Carbon Dioxide BUN Creatinine Glucose POC Glucose Lactic Acid Calcium Phosphorus Magnesium Ferritin Direct Bilirubin AST ALT Alkaline Phosphatase Lactate Dehydrogenase Total Creatine Kinase C-Reactive Protein Total Protein Albumin Triglycerides Arterial Blood Glucose Arterial Blood Ionized Calcium 3.8 L Urine Creatinine Urine Chloride Vancomycin Trough Coronavirus (PCR) Crossmatch See Detail 07/18/20 07/19/20 07/19/20 05:06 00:06 03:57 WBC RBC Hgb Hct MCHC RDW Plt Count Lymph % (Auto) [place] % (Auto) Lymph # (Auto) [place] # (Auto) Eos # (Auto) Baso # (Auto) Seg Neutrophils % Seg Neuts % (Manual) Lymphocytes % (Manual) Monocytes % (Manual) Basophils % (Manual) Nucleated RBC % Seg Neutrophils # Seg Neutrophils # Man Lymphocytes # (Manual) Monocytes # (Manual) Eosinophils # (Manual) Basophils # (Manual) PT INR APTT D-Dimer Heparin Anti-Xa Level ABG pH POC ABG pCO2 POC ABG pO2 ABG pO2 ABG HCO3 ABG O2 Saturation ABG Base Excess ABG Hemoglobin 8.6 L ABG Oxyhemoglobin ABG Sodium 130.4 L ABG Potassium ABG Chloride ABG Glucose Oxyhemoglobin Carboxyhemoglobin Sodium Potassium 5.4 H Chloride Carbon Dioxide BUN 79 H Creatinine 3.2 H Glucose POC Glucose 69 L Lactic Acid Calcium 6.9 L Phosphorus Magnesium Ferritin Direct Bilirubin AST ALT 58 H Alkaline Phosphatase Lactate Dehydrogenase Total Creatine Kinase C-Reactive Protein Total Protein 4.3 L D Albumin 1.7 L Triglycerides 306 H Arterial Blood Glucose Arterial Blood Ionized Calcium 3.9 L Urine Creatinine Urine Chloride Vancomycin Trough Coronavirus (PCR) Crossmatch 07/19/20 07/19/20 07/19/20 05:22 09:15 09:15 WBC 32.5 H RBC 2.57 L Hgb 7.8 L Hct 22.8 L MCHC RDW 15.3 H Plt Count Lymph % (Auto) [place] % (Auto) Lymph # (Auto) [place] # (Auto) Eos # (Auto) Baso # (Auto) Seg Neutrophils % Seg Neuts % (Manual) Lymphocytes % (Manual) Monocytes % (Manual) Basophils % (Manual) Nucleated RBC % Seg Neutrophils # Seg Neutrophils # Man Lymphocytes # (Manual) Monocytes # (Manual) Eosinophils # (Manual) Basophils # (Manual) PT INR APTT D-Dimer Heparin Anti-Xa Level ABG pH POC ABG pCO2 POC ABG pO2 ABG pO2 ABG HCO3 ABG O2 Saturation ABG Base Excess ABG Hemoglobin ABG Oxyhemoglobin ABG Sodium ABG Potassium ABG Chloride ABG Glucose Oxyhemoglobin Carboxyhemoglobin Sodium 135 L Potassium Chloride 96.3 L Carbon Dioxide BUN 61 H Creatinine 2.8 H Glucose POC Glucose 64 L Lactic Acid Calcium 6.8 L Phosphorus Magnesium Ferritin Direct Bilirubin AST 54 H ALT 65 H Alkaline Phosphatase Lactate Dehydrogenase Total Creatine Kinase C-Reactive Protein Total Protein 4.3 L Albumin 1.8 L Triglycerides Arterial Blood Glucose Arterial Blood Ionized Calcium Urine Creatinine Urine Chloride Vancomycin Trough Coronavirus (PCR) Crossmatch 07/20/20 07/20/20 07/20/20 05:20 06:00 06:07 WBC 28.1 H RBC 2.53 L Hgb 7.7 L Hct 22.7 L MCHC RDW 15.5 H Plt Count Lymph % (Auto) [place] % (Auto) Lymph # (Auto) [place] # (Auto) Eos # (Auto) Baso # (Auto) Seg Neutrophils % Seg Neuts % (Manual) Lymphocytes % (Manual) Monocytes % (Manual) Basophils % (Manual) Nucleated RBC % Seg Neutrophils # Seg Neutrophils # Man Lymphocytes # (Manual) Monocytes # (Manual) Eosinophils # (Manual) Basophils # (Manual) PT INR APTT D-Dimer Heparin Anti-Xa Level ABG pH POC ABG pCO2 POC ABG pO2 ABG pO2 ABG HCO3 ABG O2 Saturation ABG Base Excess ABG Hemoglobin 6.3 L ABG Oxyhemoglobin ABG Sodium 130.0 L ABG Potassium ABG Chloride ABG Glucose 114 H Oxyhemoglobin Carboxyhemoglobin Sodium Potassium Chloride Carbon Dioxide BUN Creatinine Glucose POC Glucose 110 H Lactic Acid Calcium Phosphorus Magnesium Ferritin Direct Bilirubin AST ALT Alkaline Phosphatase Lactate Dehydrogenase Total Creatine Kinase C-Reactive Protein Total Protein Albumin Triglycerides Arterial Blood Glucose 114 H Arterial Blood Ionized Calcium 3.9 L Urine Creatinine Urine Chloride Vancomycin Trough Coronavirus (PCR) Crossmatch 07/20/20 07/21/20 07/21/20 17:19 05:02 05:40 WBC 32.9 H RBC 2.78 L Hgb 8.5 L Hct 25.2 L MCHC RDW 15.7 H Plt Count 74 L Lymph % (Auto) [place] % (Auto) Lymph # (Auto) [place] # (Auto) Eos # (Auto) Baso # (Auto) Seg Neutrophils % Seg Neuts % (Manual) Lymphocytes % (Manual) Monocytes % (Manual) Basophils % (Manual) Nucleated RBC % Seg Neutrophils # Seg Neutrophils # Man Lymphocytes # (Manual) Monocytes # (Manual) Eosinophils # (Manual) Basophils # (Manual) PT INR APTT D-Dimer Heparin Anti-Xa Level ABG pH POC ABG pCO2 POC ABG pO2 73.2 L ABG pO2 ABG HCO3 ABG O2 Saturation ABG Base Excess ABG Hemoglobin 9.1 L ABG Oxyhemoglobin 93.4 L ABG Sodium ABG Potassium 3.1 L ABG Chloride ABG Glucose 112 H Oxyhemoglobin Carboxyhemoglobin Sodium Potassium Chloride Carbon Dioxide BUN Creatinine Glucose POC Glucose 137 H Lactic Acid Calcium Phosphorus Magnesium Ferritin Direct Bilirubin AST ALT Alkaline Phosphatase Lactate Dehydrogenase Total Creatine Kinase C-Reactive Protein Total Protein Albumin Triglycerides Arterial Blood Glucose 112 H Arterial Blood Ionized Calcium Urine Creatinine Urine Chloride Vancomycin Trough Coronavirus (PCR) Crossmatch 07/22/20 07/22/20 07/22/20 04:11 16:00 16:00 WBC 38.7 H RBC 2.72 L Hgb 8.1 L Hct 24.5 L MCHC RDW 16.1 H Plt Count Lymph % (Auto) [place] % (Auto) Lymph # (Auto) [place] # (Auto) Eos # (Auto) Baso # (Auto) Seg Neutrophils % Seg Neuts % (Manual) Lymphocytes % (Manual) Monocytes % (Manual) Basophils % (Manual) Nucleated RBC % Seg Neutrophils # Seg Neutrophils # Man Lymphocytes # (Manual) Monocytes # (Manual) Eosinophils # (Manual) Basophils # (Manual) PT INR APTT D-Dimer Heparin Anti-Xa Level ABG pH POC ABG pCO2 POC ABG pO2 67.7 L ABG pO2 ABG HCO3 ABG O2 Saturation ABG Base Excess ABG Hemoglobin 7.4 L ABG Oxyhemoglobin 91.7 L ABG Sodium ABG Potassium 2.9 L ABG Chloride ABG Glucose 105 H Oxyhemoglobin Carboxyhemoglobin Sodium Potassium Chloride Carbon Dioxide BUN Creatinine Glucose POC Glucose Lactic Acid Calcium Phosphorus Magnesium Ferritin Direct Bilirubin AST ALT Alkaline Phosphatase Lactate Dehydrogenase Total Creatine Kinase C-Reactive Protein Total Protein Albumin Triglycerides 197 H Arterial Blood Glucose 105 H Arterial Blood Ionized Calcium Urine Creatinine Urine Chloride Vancomycin Trough Coronavirus (PCR) Crossmatch 07/23/20 07/23/20 07/23/20 04:56 11:49 Unknown WBC RBC Hgb Hct MCHC RDW Plt Count Lymph % (Auto) [place] % (Auto) Lymph # (Auto) [place] # (Auto) Eos # (Auto) Baso # (Auto) Seg Neutrophils % Seg Neuts % (Manual) Lymphocytes % (Manual) Monocytes % (Manual) Basophils % (Manual) Nucleated RBC % Seg Neutrophils # Seg Neutrophils # Man Lymphocytes # (Manual) Monocytes # (Manual) Eosinophils # (Manual) Basophils # (Manual) PT INR APTT D-Dimer Heparin Anti-Xa Level ABG pH POC ABG pCO2 POC ABG pO2 75.7 L ABG pO2 ABG HCO3 ABG O2 Saturation ABG Base Excess ABG Hemoglobin 9.3 L ABG Oxyhemoglobin ABG Sodium ABG Potassium 3.1 L ABG Chloride 108.0 H ABG Glucose 101 H Oxyhemoglobin Carboxyhemoglobin Sodium Potassium 3.1 L D Chloride Carbon Dioxide BUN 36 H Creatinine 2.1 H Glucose 103 H POC Glucose 107 H Lactic Acid Calcium Phosphorus Magnesium Ferritin Direct Bilirubin AST ALT Alkaline Phosphatase Lactate Dehydrogenase Total Creatine Kinase C-Reactive Protein Total Protein Albumin Triglycerides Arterial Blood Glucose 101 H Arterial Blood Ionized Calcium Urine Creatinine Urine Chloride Vancomycin Trough Coronavirus (PCR) Crossmatch 07/24/20 07/24/20 07/24/20 06:40 06:40 20:38 WBC 31.4 H RBC 2.37 L Hgb 7.2 L Hct 21.7 L MCHC RDW 17.0 H Plt Count Lymph % (Auto) [place] % (Auto) Lymph # (Auto) [place] # (Auto) Eos # (Auto) Baso # (Auto) Seg Neutrophils % Seg Neuts % (Manual) 85.0 H Lymphocytes % (Manual) 6.0 L Monocytes % (Manual) Basophils % (Manual) Nucleated RBC % Seg Neutrophils # Seg Neutrophils # Man 26.7 H Lymphocytes # (Manual) Monocytes # (Manual) 0.9 H Eosinophils # (Manual) Basophils # (Manual) 0.3 H PT INR APTT D-Dimer Heparin Anti-Xa Level ABG pH POC ABG pCO2 POC ABG pO2 ABG pO2 ABG HCO3 ABG O2 Saturation ABG Base Excess ABG Hemoglobin ABG Oxyhemoglobin ABG Sodium ABG Potassium ABG Chloride ABG Glucose Oxyhemoglobin Carboxyhemoglobin Sodium Potassium 3.1 L Chloride Carbon Dioxide BUN 46 H Creatinine 2.5 H Glucose 109 H POC Glucose Lactic Acid Calcium Phosphorus Magnesium Ferritin Direct Bilirubin AST 46 H ALT 74 H Alkaline Phosphatase 180 H Lactate Dehydrogenase Total Creatine Kinase C-Reactive Protein Total Protein 4.6 L Albumin 2.0 L Triglycerides Arterial Blood Glucose Arterial Blood Ionized Calcium Urine Creatinine Urine Chloride Vancomycin Trough Coronavirus (PCR) Crossmatch See Detail 07/24/20 07/25/20 07/25/20 20:40 05:39 05:39 WBC 26.6 H RBC 2.79 L Hgb 8.5 L Hct 25.6 L MCHC RDW 16.1 H Plt Count Lymph % (Auto) [place] % (Auto) Lymph # (Auto) [place] # (Auto) Eos # (Auto) Baso # (Auto) Seg Neutrophils % Seg Neuts % (Manual) 72.0 H Lymphocytes % (Manual) 2.0 L Monocytes % (Manual) Basophils % (Manual) 3.0 H Nucleated RBC % 1.0 H Seg Neutrophils # Seg Neutrophils # Man 19.2 H Lymphocytes # (Manual) 0.5 L Monocytes # (Manual) 1.6 H Eosinophils # (Manual) 0.5 H Basophils # (Manual) 0.8 H PT 15.3 H INR 1.21 H APTT D-Dimer Heparin Anti-Xa Level ABG pH POC ABG pCO2 POC ABG pO2 ABG pO2 ABG HCO3 ABG O2 Saturation ABG Base Excess ABG Hemoglobin ABG Oxyhemoglobin ABG Sodium ABG Potassium ABG Chloride ABG Glucose Oxyhemoglobin Carboxyhemoglobin Sodium Potassium Chloride Carbon Dioxide BUN 55 H Creatinine 2.9 H Glucose POC Glucose Lactic Acid Calcium Phosphorus Magnesium Ferritin Direct Bilirubin AST ALT Alkaline Phosphatase Lactate Dehydrogenase Total Creatine Kinase C-Reactive Protein Total Protein Albumin Triglycerides Arterial Blood Glucose Arterial Blood Ionized Calcium Urine Creatinine Urine Chloride Vancomycin Trough Coronavirus (PCR) Crossmatch 07/25/20 07/26/20 07/26/20 17:22 08:46 08:46 WBC RBC Hgb Hct MCHC RDW Plt Count Lymph % (Auto) [place] % (Auto) Lymph # (Auto) [place] # (Auto) Eos # (Auto) Baso # (Auto) Seg Neutrophils % Seg Neuts % (Manual) Lymphocytes % (Manual) Monocytes % (Manual) Basophils % (Manual) Nucleated RBC % Seg Neutrophils # Seg Neutrophils # Man Lymphocytes # (Manual) Monocytes # (Manual) Eosinophils # (Manual) Basophils # (Manual) PT INR APTT D-Dimer Heparin Anti-Xa Level ABG pH POC ABG pCO2 POC ABG pO2 ABG pO2 ABG HCO3 ABG O2 Saturation ABG Base Excess ABG Hemoglobin ABG Oxyhemoglobin ABG Sodium ABG Potassium ABG Chloride ABG Glucose Oxyhemoglobin Carboxyhemoglobin Sodium Potassium Chloride Carbon Dioxide 31 H BUN 37 H Creatinine 2.2 H Glucose POC Glucose 65 L Lactic Acid Calcium 8.2 L Phosphorus Magnesium Ferritin Direct Bilirubin AST ALT Alkaline Phosphatase Lactate Dehydrogenase Total Creatine Kinase C-Reactive Protein Total Protein Albumin Triglycerides 166 H Arterial Blood Glucose Arterial Blood Ionized Calcium Urine Creatinine Urine Chloride Vancomycin Trough Coronavirus (PCR) Crossmatch 07/26/20 07/27/20 07/27/20 Unknown 04:00 07:09 WBC 24.6 H 27.1 H RBC 2.68 L 2.74 L Hgb 8.3 L 8.3 L Hct 24.7 L 25.3 L MCHC RDW 16.3 H 17.2 H Plt Count Lymph % (Auto) [place] % (Auto) Lymph # (Auto) [place] # (Auto) Eos # (Auto) Baso # (Auto) Seg Neutrophils % Seg Neuts % (Manual) 82.0 H 85.0 H Lymphocytes % (Manual) 5.0 L 4.0 L Monocytes % (Manual) 8.0 H Basophils % (Manual) Nucleated RBC % Seg Neutrophils # Seg Neutrophils # Man 20.2 H 23.0 H Lymphocytes # (Manual) 1.1 L Monocytes # (Manual) 2.0 H 1.6 H Eosinophils # (Manual) 0.7 H 1.1 H Basophils # (Manual) 0.3 H PT INR APTT D-Dimer Heparin Anti-Xa Level ABG pH POC ABG pCO2 POC ABG pO2 ABG pO2 ABG HCO3 ABG O2 Saturation ABG Base Excess ABG Hemoglobin ABG Oxyhemoglobin ABG Sodium ABG Potassium ABG Chloride ABG Glucose Oxyhemoglobin Carboxyhemoglobin Sodium Potassium Chloride Carbon Dioxide BUN Creatinine Glucose POC Glucose 115 H Lactic Acid Calcium Phosphorus Magnesium Ferritin Direct Bilirubin AST ALT Alkaline Phosphatase Lactate Dehydrogenase Total Creatine Kinase C-Reactive Protein Total Protein Albumin Triglycerides Arterial Blood Glucose Arterial Blood Ionized Calcium Urine Creatinine Urine Chloride Vancomycin Trough Coronavirus (PCR) Crossmatch 07/27/20 07/27/20 07/28/20 21:45 22:36 00:05 WBC RBC Hgb 6.4 L Hct 19.8 L* MCHC RDW Plt Count Lymph % (Auto) [place] % (Auto) Lymph # (Auto) [place] # (Auto) Eos # (Auto) Baso # (Auto) Seg Neutrophils % Seg Neuts % (Manual) Lymphocytes % (Manual) Monocytes % (Manual) Basophils % (Manual) Nucleated RBC % Seg Neutrophils # Seg Neutrophils # Man Lymphocytes # (Manual) Monocytes # (Manual) Eosinophils # (Manual) Basophils # (Manual) PT INR APTT D-Dimer Heparin Anti-Xa Level ABG pH POC ABG pCO2 POC ABG pO2 ABG pO2 ABG HCO3 ABG O2 Saturation ABG Base Excess ABG Hemoglobin ABG Oxyhemoglobin ABG Sodium ABG Potassium ABG Chloride ABG Glucose Oxyhemoglobin Carboxyhemoglobin Sodium Potassium Chloride Carbon Dioxide BUN Creatinine Glucose POC Glucose 124 H Lactic Acid Calcium Phosphorus Magnesium Ferritin Direct Bilirubin AST ALT Alkaline Phosphatase Lactate Dehydrogenase Total Creatine Kinase C-Reactive Protein Total Protein Albumin Triglycerides Arterial Blood Glucose Arterial Blood Ionized Calcium Urine Creatinine Urine Chloride Vancomycin Trough Coronavirus (PCR) Crossmatch See Detail 07/28/20 07/28/20 07/28/20 04:00 06:27 12:24 WBC 30.3 H RBC 2.35 L Hgb 7.2 L Hct 21.2 L MCHC RDW 16.8 H Plt Count Lymph % (Auto) [place] % (Auto) Lymph # (Auto) [place] # (Auto) Eos # (Auto) Baso # (Auto) Seg Neutrophils % Seg Neuts % (Manual) Lymphocytes % (Manual) Monocytes % (Manual) Basophils % (Manual) Nucleated RBC % Seg Neutrophils # Seg Neutrophils # Man Lymphocytes # (Manual) Monocytes # (Manual) Eosinophils # (Manual) Basophils # (Manual) PT INR APTT D-Dimer Heparin Anti-Xa Level ABG pH POC ABG pCO2 POC ABG pO2 ABG pO2 ABG HCO3 ABG O2 Saturation ABG Base Excess ABG Hemoglobin ABG Oxyhemoglobin ABG Sodium ABG Potassium ABG Chloride ABG Glucose Oxyhemoglobin Carboxyhemoglobin Sodium Potassium Chloride Carbon Dioxide BUN Creatinine Glucose POC Glucose 107 H 110 H Lactic Acid Calcium Phosphorus Magnesium Ferritin Direct Bilirubin AST ALT Alkaline Phosphatase Lactate Dehydrogenase Total Creatine Kinase C-Reactive Protein Total Protein Albumin Triglycerides Arterial Blood Glucose Arterial Blood Ionized Calcium Urine Creatinine Urine Chloride Vancomycin Trough Coronavirus (PCR) Crossmatch 07/28/20 07/28/20 07/28/20 14:31 18:19 23:33 WBC RBC Hgb Hct MCHC RDW Plt Count Lymph % (Auto) [place] % (Auto) Lymph # (Auto) [place] # (Auto) Eos # (Auto) Baso # (Auto) Seg Neutrophils % Seg Neuts % (Manual) Lymphocytes % (Manual) Monocytes % (Manual) Basophils % (Manual) Nucleated RBC % Seg Neutrophils # Seg Neutrophils # Man Lymphocytes # (Manual) Monocytes # (Manual) Eosinophils # (Manual) Basophils # (Manual) PT INR APTT D-Dimer Heparin Anti-Xa Level ABG pH 7.333 L POC ABG pCO2 POC ABG pO2 ABG pO2 68.0 L ABG HCO3 ABG O2 Saturation 92.4 L ABG Base Excess -2.7 L ABG Hemoglobin 9.0 L ABG Oxyhemoglobin ABG Sodium ABG Potassium ABG Chloride ABG Glucose Oxyhemoglobin 89.9 L Carboxyhemoglobin Sodium Potassium Chloride Carbon Dioxide BUN Creatinine Glucose POC Glucose 117 H 113 H Lactic Acid Calcium Phosphorus Magnesium Ferritin Direct Bilirubin AST ALT Alkaline Phosphatase Lactate Dehydrogenase Total Creatine Kinase C-Reactive Protein Total Protein Albumin Triglycerides Arterial Blood Glucose Arterial Blood Ionized Calcium Urine Creatinine Urine Chloride Vancomycin Trough Coronavirus (PCR) Crossmatch 07/28/20 07/29/20 07/29/20 Unknown 04:39 04:39 WBC 38.6 H RBC 2.15 L Hgb 6.6 L Hct 19.9 L* MCHC RDW 17.5 H Plt Count Lymph % (Auto) 3.2 L [place] % (Auto) Lymph # (Auto) [place] # (Auto) 2.7 H Eos # (Auto) 0.8 H Baso # (Auto) 0.4 H Seg Neutrophils % 86.5 H Seg Neuts % (Manual) Lymphocytes % (Manual) Monocytes % (Manual) Basophils % (Manual) Nucleated RBC % Seg Neutrophils # 33.4 H Seg Neutrophils # Man Lymphocytes # (Manual) Monocytes # (Manual) Eosinophils # (Manual) Basophils # (Manual) PT INR APTT D-Dimer Heparin Anti-Xa Level ABG pH POC ABG pCO2 POC ABG pO2 ABG pO2 ABG HCO3 ABG O2 Saturation ABG Base Excess ABG Hemoglobin ABG Oxyhemoglobin ABG Sodium ABG Potassium ABG Chloride ABG Glucose Oxyhemoglobin Carboxyhemoglobin Sodium 135 L Potassium 3.2 L 3.1 L Chloride Carbon Dioxide BUN 35 H 42 H Creatinine 2.3 H 2.5 H Glucose 123 H 109 H POC Glucose Lactic Acid Calcium 7.2 L 7.5 L Phosphorus Magnesium Ferritin Direct Bilirubin AST ALT Alkaline Phosphatase Lactate Dehydrogenase Total Creatine Kinase C-Reactive Protein Total Protein Albumin Triglycerides Arterial Blood Glucose Arterial Blood Ionized Calcium Urine Creatinine Urine Chloride Vancomycin Trough Coronavirus (PCR) Crossmatch 07/29/20 07/29/20 07/29/20 05:36 11:51 17:42 WBC RBC Hgb Hct MCHC RDW Plt Count Lymph % (Auto) [place] % (Auto) Lymph # (Auto) [place] # (Auto) Eos # (Auto) Baso # (Auto) Seg Neutrophils % Seg Neuts % (Manual) Lymphocytes % (Manual) Monocytes % (Manual) Basophils % (Manual) Nucleated RBC % Seg Neutrophils # Seg Neutrophils # Man Lymphocytes # (Manual) Monocytes # (Manual) Eosinophils # (Manual) Basophils # (Manual) PT INR APTT D-Dimer Heparin Anti-Xa Level ABG pH POC ABG pCO2 POC ABG pO2 ABG pO2 ABG HCO3 ABG O2 Saturation ABG Base Excess ABG Hemoglobin ABG Oxyhemoglobin ABG Sodium ABG Potassium ABG Chloride ABG Glucose Oxyhemoglobin Carboxyhemoglobin Sodium Potassium Chloride Carbon Dioxide BUN Creatinine Glucose POC Glucose 111 H 127 H 117 H Lactic Acid Calcium Phosphorus Magnesium Ferritin Direct Bilirubin AST ALT Alkaline Phosphatase Lactate Dehydrogenase Total Creatine Kinase C-Reactive Protein Total Protein Albumin Triglycerides Arterial Blood Glucose Arterial Blood Ionized Calcium Urine Creatinine Urine Chloride Vancomycin Trough Coronavirus (PCR) Crossmatch 07/29/20 07/30/20 07/30/20 23:07 17:32 23:13 WBC RBC Hgb Hct MCHC RDW Plt Count Lymph % (Auto) [place] % (Auto) Lymph # (Auto) [place] # (Auto) Eos # (Auto) Baso # (Auto) Seg Neutrophils % Seg Neuts % (Manual) Lymphocytes % (Manual) Monocytes % (Manual) Basophils % (Manual) Nucleated RBC % Seg Neutrophils # Seg Neutrophils # Man Lymphocytes # (Manual) Monocytes # (Manual) Eosinophils # (Manual) Basophils # (Manual) PT INR APTT D-Dimer Heparin Anti-Xa Level ABG pH POC ABG pCO2 POC ABG pO2 ABG pO2 ABG HCO3 ABG O2 Saturation ABG Base Excess ABG Hemoglobin ABG Oxyhemoglobin ABG Sodium ABG Potassium ABG Chloride ABG Glucose Oxyhemoglobin Carboxyhemoglobin Sodium Potassium Chloride Carbon Dioxide BUN Creatinine Glucose POC Glucose 116 H 107 H Lactic Acid Calcium Phosphorus Magnesium Ferritin Direct Bilirubin AST ALT Alkaline Phosphatase Lactate Dehydrogenase Total Creatine Kinase C-Reactive Protein Total Protein Albumin Triglycerides Arterial Blood Glucose Arterial Blood Ionized Calcium Urine Creatinine Urine Chloride Vancomycin Trough Coronavirus (PCR) Crossmatch See Detail 07/30/20 07/31/20 07/31/20 Unknown 05:28 09:00 WBC 30.8 H RBC 2.39 L Hgb 7.3 L Hct 21.9 L MCHC RDW 16.7 H Plt Count Lymph % (Auto) [place] % (Auto) Lymph # (Auto) [place] # (Auto) Eos # (Auto) Baso # (Auto) Seg Neutrophils % Seg Neuts % (Manual) 85.0 H Lymphocytes % (Manual) 1.0 L Monocytes % (Manual) Basophils % (Manual) Nucleated RBC % 1.0 H Seg Neutrophils # Seg Neutrophils # Man 26.2 H Lymphocytes # (Manual) 0.3 L Monocytes # (Manual) 1.8 H Eosinophils # (Manual) Basophils # (Manual) PT INR APTT D-Dimer Heparin Anti-Xa Level ABG pH 7.241 L POC ABG pCO2 52.8 H POC ABG pO2 63.3 L ABG pO2 ABG HCO3 ABG O2 Saturation ABG Base Excess ABG Hemoglobin 7.6 L ABG Oxyhemoglobin ABG Sodium 133.6 L ABG Potassium ABG Chloride ABG Glucose 114 H Oxyhemoglobin Carboxyhemoglobin Sodium Potassium Chloride Carbon Dioxide BUN Creatinine Glucose POC Glucose Lactic Acid Calcium Phosphorus Magnesium Ferritin Direct Bilirubin AST ALT Alkaline Phosphatase Lactate Dehydrogenase Total Creatine Kinase C-Reactive Protein Total Protein Albumin Triglycerides 184 H Arterial Blood Glucose 114 H Arterial Blood Ionized Calcium 4.4 L Urine Creatinine Urine Chloride Vancomycin Trough Coronavirus (PCR) Crossmatch 07/31/20 07/31/20 07/31/20 09:00 12:00 16:17 WBC RBC Hgb Hct MCHC RDW Plt Count Lymph % (Auto) [place] % (Auto) Lymph # (Auto) [place] # (Auto) Eos # (Auto) Baso # (Auto) Seg Neutrophils % Seg Neuts % (Manual) Lymphocytes % (Manual) Monocytes % (Manual) Basophils % (Manual) Nucleated RBC % Seg Neutrophils # Seg Neutrophils # Man Lymphocytes # (Manual) Monocytes # (Manual) Eosinophils # (Manual) Basophils # (Manual) PT INR APTT D-Dimer Heparin Anti-Xa Level ABG pH POC ABG pCO2 POC ABG pO2 148.6 H ABG pO2 ABG HCO3 ABG O2 Saturation ABG Base Excess ABG Hemoglobin 6.7 L ABG Oxyhemoglobin ABG Sodium 132.3 L ABG Potassium ABG Chloride ABG Glucose 115 H Oxyhemoglobin Carboxyhemoglobin Sodium 136 L Potassium Chloride Carbon Dioxide BUN 46 H Creatinine 2.4 H Glucose POC Glucose 106 H Lactic Acid Calcium 7.7 L Phosphorus Magnesium Ferritin Direct Bilirubin AST ALT Alkaline Phosphatase Lactate Dehydrogenase Total Creatine Kinase C-Reactive Protein Total Protein Albumin Triglycerides Arterial Blood Glucose 115 H Arterial Blood Ionized Calcium 4.2 L Urine Creatinine Urine Chloride Vancomycin Trough Coronavirus (PCR) Crossmatch 07/31/20 08/01/20 08/01/20 17:05 04:48 05:00 WBC RBC Hgb Hct MCHC RDW Plt Count Lymph % (Auto) [place] % (Auto) Lymph # (Auto) [place] # (Auto) Eos # (Auto) Baso # (Auto) Seg Neutrophils % Seg Neuts % (Manual) Lymphocytes % (Manual) Monocytes % (Manual) Basophils % (Manual) Nucleated RBC % Seg Neutrophils # Seg Neutrophils # Man Lymphocytes # (Manual) Monocytes # (Manual) Eosinophils # (Manual) Basophils # (Manual) PT INR APTT D-Dimer Heparin Anti-Xa Level ABG pH POC ABG pCO2 POC ABG pO2 111.5 H ABG pO2 ABG HCO3 ABG O2 Saturation ABG Base Excess ABG Hemoglobin 7.1 L ABG Oxyhemoglobin ABG Sodium 131.4 L ABG Potassium ABG Chloride ABG Glucose 107 H Oxyhemoglobin Carboxyhemoglobin Sodium 135 L Potassium Chloride Carbon Dioxide BUN 56 H Creatinine 2.6 H Glucose 117 H POC Glucose 119 H Lactic Acid Calcium 7.8 L Phosphorus Magnesium Ferritin Direct Bilirubin AST ALT Alkaline Phosphatase Lactate Dehydrogenase Total Creatine Kinase C-Reactive Protein Total Protein Albumin Triglycerides Arterial Blood Glucose 107 H Arterial Blood Ionized Calcium 4.3 L Urine Creatinine Urine Chloride Vancomycin Trough Coronavirus (PCR) Crossmatch 08/01/20 08/01/20 08/01/20 05:00 11:53 17:38 WBC 22.0 H RBC 2.26 L Hgb 6.8 L Hct 20.5 L MCHC RDW 16.6 H Plt Count Lymph % (Auto) [place] % (Auto) Lymph # (Auto) [place] # (Auto) Eos # (Auto) Baso # (Auto) Seg Neutrophils % Seg Neuts % (Manual) Lymphocytes % (Manual) Monocytes % (Manual) Basophils % (Manual) Nucleated RBC % Seg Neutrophils # Seg Neutrophils # Man Lymphocytes # (Manual) Monocytes # (Manual) Eosinophils # (Manual) Basophils # (Manual) PT INR APTT D-Dimer Heparin Anti-Xa Level ABG pH POC ABG pCO2 POC ABG pO2 ABG pO2 ABG HCO3 ABG O2 Saturation ABG Base Excess ABG Hemoglobin ABG Oxyhemoglobin ABG Sodium ABG Potassium ABG Chloride ABG Glucose Oxyhemoglobin Carboxyhemoglobin Sodium Potassium Chloride Carbon Dioxide BUN Creatinine Glucose POC Glucose 107 H 111 H Lactic Acid Calcium Phosphorus Magnesium Ferritin Direct Bilirubin AST ALT Alkaline Phosphatase Lactate Dehydrogenase Total Creatine Kinase C-Reactive Protein Total Protein Albumin Triglycerides Arterial Blood Glucose Arterial Blood Ionized Calcium Urine Creatinine Urine Chloride Vancomycin Trough Coronavirus (PCR) Crossmatch 08/01/20 08/02/20 08/02/20 23:49 05:11 05:20 WBC 17.2 H RBC 2.73 L Hgb 8.3 L Hct 24.6 L MCHC RDW 16.0 H Plt Count Lymph % (Auto) [place] % (Auto) Lymph # (Auto) [place] # (Auto) Eos # (Auto) Baso # (Auto) Seg Neutrophils % Seg Neuts % (Manual) Lymphocytes % (Manual) Monocytes % (Manual) Basophils % (Manual) Nucleated RBC % Seg Neutrophils # Seg Neutrophils # Man Lymphocytes # (Manual) Monocytes # (Manual) Eosinophils # (Manual) Basophils # (Manual) PT INR APTT D-Dimer Heparin Anti-Xa Level ABG pH POC ABG pCO2 POC ABG pO2 ABG pO2 ABG HCO3 ABG O2 Saturation ABG Base Excess ABG Hemoglobin ABG Oxyhemoglobin ABG Sodium ABG Potassium ABG Chloride ABG Glucose Oxyhemoglobin Carboxyhemoglobin Sodium Potassium Chloride Carbon Dioxide BUN Creatinine Glucose POC Glucose 107 H 119 H Lactic Acid Calcium Phosphorus Magnesium Ferritin Direct Bilirubin AST ALT Alkaline Phosphatase Lactate Dehydrogenase Total Creatine Kinase C-Reactive Protein Total Protein Albumin Triglycerides Arterial Blood Glucose Arterial Blood Ionized Calcium Urine Creatinine Urine Chloride Vancomycin Trough Coronavirus (PCR) Crossmatch 08/02/20 08/03/20 08/03/20 11:24 04:00 04:10 WBC RBC Hgb Hct MCHC RDW Plt Count Lymph % (Auto) [place] % (Auto) Lymph # (Auto) [place] # (Auto) Eos # (Auto) Baso # (Auto) Seg Neutrophils % Seg Neuts % (Manual) Lymphocytes % (Manual) Monocytes % (Manual) Basophils % (Manual) Nucleated RBC % Seg Neutrophils # Seg Neutrophils # Man Lymphocytes # (Manual) Monocytes # (Manual) Eosinophils # (Manual) Basophils # (Manual) PT INR APTT D-Dimer Heparin Anti-Xa Level ABG pH POC ABG pCO2 POC ABG pO2 133.7 H ABG pO2 ABG HCO3 ABG O2 Saturation ABG Base Excess ABG Hemoglobin 8.1 L ABG Oxyhemoglobin ABG Sodium 130.0 L ABG Potassium ABG Chloride ABG Glucose 97 H Oxyhemoglobin Carboxyhemoglobin Sodium 134 L Potassium Chloride 97.3 L Carbon Dioxide BUN 70 H Creatinine 2.6 H Glucose 102 H POC Glucose 129 H Lactic Acid Calcium 8.1 L Phosphorus Magnesium Ferritin Direct Bilirubin AST ALT Alkaline Phosphatase Lactate Dehydrogenase Total Creatine Kinase C-Reactive Protein Total Protein Albumin Triglycerides Arterial Blood Glucose 97 H Arterial Blood Ionized Calcium Urine Creatinine Urine Chloride Vancomycin Trough Coronavirus (PCR) Crossmatch 08/03/20 08/03/20 08/03/20 09:14 11:41 17:46 WBC 17.8 H RBC 2.91 L Hgb 8.6 L Hct 26.3 L MCHC RDW 16.0 H Plt Count Lymph % (Auto) [place] % (Auto) Lymph # (Auto) [place] # (Auto) Eos # (Auto) Baso # (Auto) Seg Neutrophils % Seg Neuts % (Manual) Lymphocytes % (Manual) Monocytes % (Manual) Basophils % (Manual) Nucleated RBC % Seg Neutrophils # Seg Neutrophils # Man Lymphocytes # (Manual) Monocytes # (Manual) Eosinophils # (Manual) Basophils # (Manual) PT INR APTT D-Dimer Heparin Anti-Xa Level ABG pH POC ABG pCO2 POC ABG pO2 ABG pO2 ABG HCO3 ABG O2 Saturation ABG Base Excess ABG Hemoglobin ABG Oxyhemoglobin ABG Sodium ABG Potassium ABG Chloride ABG Glucose Oxyhemoglobin Carboxyhemoglobin Sodium Potassium Chloride Carbon Dioxide BUN Creatinine Glucose POC Glucose 117 H 109 H Lactic Acid Calcium Phosphorus Magnesium Ferritin Direct Bilirubin AST ALT Alkaline Phosphatase Lactate Dehydrogenase Total Creatine Kinase C-Reactive Protein Total Protein Albumin Triglycerides Arterial Blood Glucose Arterial Blood Ionized Calcium Urine Creatinine Urine Chloride Vancomycin Trough Coronavirus (PCR) Crossmatch 08/03/20 08/03/20 08/04/20 21:00 23:23 04:00 WBC 16.6 H RBC 2.69 L Hgb 7.8 L Hct 24.3 L MCHC RDW 16.1 H Plt Count Lymph % (Auto) [place] % (Auto) Lymph # (Auto) [place] # (Auto) Eos # (Auto) Baso # (Auto) Seg Neutrophils % Seg Neuts % (Manual) Lymphocytes % (Manual) Monocytes % (Manual) Basophils % (Manual) Nucleated RBC % Seg Neutrophils # Seg Neutrophils # Man Lymphocytes # (Manual) Monocytes # (Manual) Eosinophils # (Manual) Basophils # (Manual) PT INR APTT D-Dimer Heparin Anti-Xa Level ABG pH POC ABG pCO2 48.3 H POC ABG pO2 67.6 L ABG pO2 ABG HCO3 ABG O2 Saturation ABG Base Excess ABG Hemoglobin 9.8 L ABG Oxyhemoglobin 92.2 L ABG Sodium 133.5 L ABG Potassium ABG Chloride ABG Glucose 115 H Oxyhemoglobin Carboxyhemoglobin Sodium Potassium Chloride Carbon Dioxide BUN Creatinine Glucose POC Glucose 116 H Lactic Acid Calcium Phosphorus Magnesium Ferritin Direct Bilirubin AST ALT Alkaline Phosphatase Lactate Dehydrogenase Total Creatine Kinase C-Reactive Protein Total Protein Albumin Triglycerides Arterial Blood Glucose 115 H Arterial Blood Ionized Calcium 4.5 L Urine Creatinine Urine Chloride Vancomycin Trough Coronavirus (PCR) Crossmatch 08/04/20 08/04/20 08/04/20 05:00 05:26 11:52 WBC RBC Hgb Hct MCHC RDW Plt Count Lymph % (Auto) [place] % (Auto) Lymph # (Auto) [place] # (Auto) Eos # (Auto) Baso # (Auto) Seg Neutrophils % Seg Neuts % (Manual) Lymphocytes % (Manual) Monocytes % (Manual) Basophils % (Manual) Nucleated RBC % Seg Neutrophils # Seg Neutrophils # Man Lymphocytes # (Manual) Monocytes # (Manual) Eosinophils # (Manual) Basophils # (Manual) PT INR APTT D-Dimer Heparin Anti-Xa Level ABG pH POC ABG pCO2 POC ABG pO2 ABG pO2 ABG HCO3 ABG O2 Saturation ABG Base Excess ABG Hemoglobin ABG Oxyhemoglobin ABG Sodium ABG Potassium ABG Chloride ABG Glucose Oxyhemoglobin Carboxyhemoglobin Sodium Potassium Chloride Carbon Dioxide BUN Creatinine Glucose POC Glucose 110 H 124 H Lactic Acid Calcium Phosphorus Magnesium Ferritin Direct Bilirubin AST ALT Alkaline Phosphatase Lactate Dehydrogenase Total Creatine Kinase C-Reactive Protein Total Protein Albumin Triglycerides 262 H Arterial Blood Glucose Arterial Blood Ionized Calcium Urine Creatinine Urine Chloride Vancomycin Trough Coronavirus (PCR) Crossmatch 08/04/20 08/04/20 08/05/20 18:11 23:23 11:59 WBC RBC Hgb Hct MCHC RDW Plt Count Lymph % (Auto) [place] % (Auto) Lymph # (Auto) [place] # (Auto) Eos # (Auto) Baso # (Auto) Seg Neutrophils % Seg Neuts % (Manual) Lymphocytes % (Manual) Monocytes % (Manual) Basophils % (Manual) Nucleated RBC % Seg Neutrophils # Seg Neutrophils # Man Lymphocytes # (Manual) Monocytes # (Manual) Eosinophils # (Manual) Basophils # (Manual) PT INR APTT D-Dimer Heparin Anti-Xa Level ABG pH POC ABG pCO2 POC ABG pO2 ABG pO2 ABG HCO3 ABG O2 Saturation ABG Base Excess ABG Hemoglobin ABG Oxyhemoglobin ABG Sodium ABG Potassium ABG Chloride ABG Glucose Oxyhemoglobin Carboxyhemoglobin Sodium Potassium Chloride Carbon Dioxide BUN Creatinine Glucose POC Glucose 117 H 112 H 122 H Lactic Acid Calcium Phosphorus Magnesium Ferritin Direct Bilirubin AST ALT Alkaline Phosphatase Lactate Dehydrogenase Total Creatine Kinase C-Reactive Protein Total Protein Albumin Triglycerides Arterial Blood Glucose Arterial Blood Ionized Calcium Urine Creatinine Urine Chloride Vancomycin Trough Coronavirus (PCR) Crossmatch 08/05/20 08/05/20 08/06/20 23:22 Unknown 05:35 WBC 22.3 H RBC 2.85 L Hgb 8.5 L Hct 25.7 L MCHC RDW 16.0 H Plt Count Lymph % (Auto) [place] % (Auto) Lymph # (Auto) [place] # (Auto) Eos # (Auto) Baso # (Auto) Seg Neutrophils % Seg Neuts % (Manual) Lymphocytes % (Manual) Monocytes % (Manual) Basophils % (Manual) Nucleated RBC % Seg Neutrophils # Seg Neutrophils # Man Lymphocytes # (Manual) Monocytes # (Manual) Eosinophils # (Manual) Basophils # (Manual) PT INR APTT D-Dimer Heparin Anti-Xa Level ABG pH POC ABG pCO2 POC ABG pO2 ABG pO2 ABG HCO3 ABG O2 Saturation ABG Base Excess ABG Hemoglobin ABG Oxyhemoglobin ABG Sodium ABG Potassium ABG Chloride ABG Glucose Oxyhemoglobin Carboxyhemoglobin Sodium Potassium Chloride Carbon Dioxide BUN Creatinine Glucose POC Glucose 119 H 110 H Lactic Acid Calcium Phosphorus Magnesium Ferritin Direct Bilirubin AST ALT Alkaline Phosphatase Lactate Dehydrogenase Total Creatine Kinase C-Reactive Protein Total Protein Albumin Triglycerides Arterial Blood Glucose Arterial Blood Ionized Calcium Urine Creatinine Urine Chloride Vancomycin Trough Coronavirus (PCR) Crossmatch Allied health notes reviewed: RT
--- NOTE | 2020-08-06 12:03 | Progress Note ---
Assessment and Plan Assessment and plan: -S/p dexamethasone and remdesivir therapy, contact/droplet isolation, vitamin C/vitamin D/zinc, anticoagulation per protocol, trend inflammatory markers -Wean mechanical ventilation as tolerated, VAP bundle -HD per nephrology -Transfuse for hemaglobin less than 7, s/p 10 units PRBC during stay -Nephrology, ID, heme-onc, GI , CCM, cardiology consulted,appreciate recommendations -BCR-ABL mutation testing pending -Per infectious disease: s/p ampicillin. On cefepime, discontinued now on meropenem -Monitor leukocytosis and fevers -s/p RJ to trialysis line exchange over wire 08/02 -Resume systemic anticoagulation and monitor for anemia -Amiodarone for rate control -s/p debridement by Dr. Kirk, WOESPERANZA consulted, WC per nursing, 07/27 debridement repeated -07/22 COVID-19 PCR negative, discontinued contact/droplet isolation DVT prophylaxis: GI prophylaxis, heparin subcu, SCDs to bilateral LE while in bed Disposition: ICU, ?placement ?trach/peg ?Ltach (awaiting LTAC transfer) The high probability of a clinically significant, sudden or life threatening deterioration of the [multi] system(s) required my full and direct attention, intervention and personal management. The aggregate critical care time was [35] minutes. This time is in addition to time spent performing reported procedures but includes the following: [x] Data Review and interpretation [x] Patient assessment and monitoring of vital signs [x] Documentation [x] Medication orders and management History Interval history: 59-year-old white male who was admitted for pneumonia secondary to Covid with associated respiratory failure and sepsis. Severe septic shock COVID-19 pneumonia Sacral wound, stage 4 Leukemoid reaction Acute metabolic encephalopathy Acute hypoxic respiratory failure Enterococcus bacteremia MDR Pseudomonas in tracheal aspirate Pneumomediastinum Acute kidney injury likely secondary to acute tubular necrosis which progressed to hemodialysis SVT/proximal atrial fibrillation Elevated LFTs Anemia likely due to severe sepsis had declining renal function Morbid obesity Leukocytosis Hypoalbuminemia Sacral decubitus: s/p debridements 06/18: Patient got intubated overnight. Patient was placed on BiPAP to maintain oxygenation with 100% FiO2 but apparently he found to take off his argueta which made his oxygen saturation go down at 60s/50s and patient was found altered mental status. Code met was called immediately. Patient was transferred to ICU and intubated, patient currently on 2 pressors, intubated with 100% FiO2, renal function noted to be decline, nephrology consulted. Discussed with [facility] physician Dr. Thompson and requested call back on Saturday. Poor prognosis, continue to monitor with aggressive supportive care. Also called family/ to update clinical status. 06/19: Repeat COVID test was positive. cont cefepime, remdesivir per ID recommendation. follow inflammatory markers, cbc, bmp. placed on heparin drip for atrial fib 06/20: Remains on mechanical ventilation, on 2 pressors, on heparin drip. discussed with and daughter by phone. Renal function declining. cont supportive care for now. 06/21: Renal function cont to decline, urine outpt sig decreased. started on lasix 80mg BID, plan to follow urine output, if no improvement patient need to start on HD. called and daughter today. updated all clinical details 06/22: Renal function continues to decline with uremia and hyperkalemia. Will need to proceed with hemodialysis. Nephrology discussed with the family and they agrees for the hemodialysis. Patient remains on pressor support and mechanical ventilation. Vas-Cath placed today by vascular started on hemodialysis today. 06/23: 2nd round of HD today, remains on 2 pressors. per RN not tolerating TF, has no record of BM since 06/18. start on stool softner. follow cbc/bmp. updated family ( and daughter) by phone -all question answered to best of my knowledge and to their satisfaction. Patient remains critically ill with a very poor prognosis. 06/24: Continue supportive care, Very poor prognosis, Fingerprint Expert to discuss with family in am due to the futility of the condition. 06/25/2020 continue supportive care very poor prognosis 06/26/2020 continue supportive care very poor prognosis family updated 06/27/2020 continue supportive care and weaning if possible 06/28/2020 continue supportive care, talk with at length 06/29: Resumed care. K level persistently high. give one dose of bicarbonate, plan for HD today, recheck k after HD. updated family by phone 06/30: updated family by phone. Patient remains on amiodarone drip and vasopressin. Getting HD at the bedside. Tolerating tube feeding at low rate. 07/01: Hb dropped to 6.4 today, transfuse one unit PRBC. patient is off pressor today, remains on amioderone. cont to monitor 07/02: Called patient and updated clinical details. Patient remains critically ill, still intubated. Patient's oxygen requirement and PEEP pressure has went down. Continue weaning protocol per critical care recommendation. Patient remains off pressor. Continue to wean off from amiodarone and plan to rate control with p.o. medications. Tolerating tube feeding. H&H stable today. Order for stool for occult blood. Monitor H&H and BMP. Continue to follow clinically 07/03: discussed with [facility] physician today. Patient back on 100percent Fio2 since last night. planned for emergent Hd today. spiked fever, start IV Cefepime + Vancomycin renally dosed. Restarted Levophed today, remains on amiodarone drip. Patient family was updated by critical care attending today. 07/04: Patient has hemodialysis yesterday and also plan for today for volume overload and pulmonary edema. Patient currently on 80% FiO2. Remains on Levophed and amiodarone. Hemoglobin dropped to 6.7 without any evidence of active bleeding. LFTs remain stable. Repeat Covid test on 06/30 and 07/03 remains positive. Will transfuse another unit of packed RBC today. Called family for update -explained family that patient is critically ill with very poor prognosis. 07/05: Patient on 70% FiO2 with PEEP of 14. h/h stable after transfusion. hyperkalemia improved, cont sodiumbicarbonate pill with TF. follow BMP. off levophed today, remains on amioderone. poor prognosis. 07/06: Patient remains on amiodarone drip, maintaining BP without any pressor. FiO2 requirement trended down to 60% with PEEP of 14. Continue to follow clinically. Plan to wean off amiodarone drip as tolerated. Wean off from sedation as tolerated. Updated family. Patient remains critically ill with poor prognosis. 07/07: Called family for update. Off amiodarone drip today, patient also off pressor. FiO2 requirement trended up again to 80-100%. Continue to provide supportive care, monitor clinically. Having difficulty to wean off from the vent support. Patient is persistently positive for COVID-19 and COVID-19 antibody is nonreactive. Patient remains critically ill with very poor prognosis. 07/08: Continue supportive care. 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 Prognosis remains guarded to poor. Management per team. Critical care time 35-minute 07/09/20 patient is tachycardic. Heart rate 121. Hemoglobin 7.3. Patient is having hemodialysis. Continue supportive care. Patient having difficulty to we an off from the vent support. Prognosis is poor. Nephrology and cardiology follow-up. Recheck CBC BMP in the morning. Continue current management. 07/10/20 patient seen and examined, remains on full ventilator patient is doing better. Patient is off pressor. heart rate 123. Hemoglobin 6.8 and hematocrit 20.7. WBC is 18.1. Continue supportive care. Patient having difficulty to wean off from the vent support. We will started on Zosyn 4.5 g IV every 8 hours. Will transfuse 1 unit of packed red blood cell. Prognosis is poor. Nephrology and cardiology follow up. Recheck CBC BMP in the morning 07/11: remains off vasopressor, h/h appropriately responded to 1 unit PRBC. HD today. Remain on MV with fiO2 at 70%. peep 10. No acute events reported overnight. 32: Patient remains in atrial fibrillation on the engine monitor, vasopressor support with Levophed and vasopressin, sedated with fentanyl and propofol. Vent settings: CMV 500/25/14/0.60. Patient remains hypercarbic on ABG 07/13: Patient remains on vasopressin, fentanyl and propofol with rectal tube in place. This morning some examination patient was on assist control 25/500/14/0.60. Patient received hemodialysis today. No acute events reported overnight. 07/14: Remains on vasopressin, fentanyl and propofol with tube in place. Rectal tube in place with noted blood clots, GI consulted, on 07/13 H/H dropped from 8.7/27 to 7.4/22 and anticoagulation discontinued. This morning I spoke to his who still wishes for the patient to remain a full code despite update with continued use of vasopressor (vasopressin), current ventilatory support (CMV 500/25/14/0.60) and recent development of rectal bleeding. Patient's family requests an update from [facility] and GI. Cardio changed amio from PO to IV given elevated HR 07/15: Today the patient received a total of 5 units of PRBC and is still having bleeding through his rectal tube. CTA abdomen/pelvis is pending, patient remains on Levophed, fentanyl, propofol, vasopressin and received hemodialysis today. He was also hyperkalemic today to 6 and he received insulin and D50. Extensive conversation with family conducted by CCM and hospitalist and his and 2 daughters did visit him today at the bedside. 07/16: Continues with full ventilatory support. FMS still inplace with some loose bloody stool. Still on multiple pressors, Bilateral swollen and generalized anascara. Monitor H/H and transfuse as needed. Monitor K level. Discussed with family at bedside yesterday. 07/17: Continue supportive care, transfusion blood possible in am with HD, continue abx, very poor prognosis, blood pressure still labile. Discussed with nurse at bedside 07/18: CTA abdomen/pelvis completed, antibiotics changed to Zosyn per infectious disease, remains on mechanical ventilation 450/25/12/0.55 continue amiodarone drip for 24 more hours, blood culture grew Enterococcus. Remains sedated on propofol and fentanyl. Not on vasopressor support today 07/19: No acute events reported overnight, remains sedated with fentanyl and propofol and off vasopressor therapy today. 07/20: s/p debridement with surgery today, remains on fentanyl, propofol, Levophed and current vent settings 450/25/10/0.45. Patient will be transferred to a bariatric bed once available. 07/21: Continue current management, wean ventilator as tolerated, IV antibiotics deescalated to ampicillin. Per infectious disease no need to exchange/remove lines unless repeat blood cultures turn positive. The time my examination patient was sedated on fentanyl and propofol and remains off vasopressor support. 07/22: At the time my examination patient is sedated on fentanyl and propofol and remains off vasopressor support, repeat COVID-19 PCR negative. Patient remains on ampicillin. H/H remained stable and GI has signed off. Mechanical ventilation weaning as tolerated. 07/23. He remains sedated on fentanyl and propofol. On mechanical ventilation. On levophed. repeat COVID-19 PCR negative. Patient remains on ampicillin. H/H remained stable and GI has signed off. 07/24. He remains sedated and on mechanical ventilation. On levophed. repeat COVID-19 PCR negative. On ampicillin. ID recs appreciated. Labs reviewed 07/25: Patient remains sedated on fentanyl and Diprivan and remains on mechanical ventilation. Repeat CXR and still has leukocytosis. Patient is n.p.o. for trach and PEG with surgery. 07/26: Remains sedated on fentanyl and propofol. Remains on vasopressor support with Levophed. Current vent settings CMV 450/20/8/0.40. Patient is scheduled for PEG/trach with surgery. No acute events reported overnight. 07/27: Debridement with surgery to sacrum:, Activity restarted, remains sedated on propofol/fentanyl and Precedex support with Levophed. Current vent settings CMV 450/20/8/135. S/p trach/PEG with surgery 07/26. Patient remains afebrile however leukocytosis slightly worse today and he is still on his ampicillin. Patient was hypoglycemic overnight. 07/28: Patient remains sedated on propofol and fentanyl. Continue amiodarone drip for rate control. Patient be started on pressors of Levophed last evening. Patient currently with PSV/CPAP FiO2 35% PEEP of 8 and pressure support of 20. Wean mechanical ventilation as tolerated, VAP bundle. Continue hemodialysis per nephrology recommendations. Continue antibiotics per ID recommendations. Hold systemic anticoagulation in the setting of severe anemia. Patient with status post debridement on 07/27. 07/29: Continue sedation per pulmonary. Amiodarone drip for rate control. Continue vasopressors to maintain MAP > 65. Mechanical ventilation currently AC mode rate of 20 tidal volume 450, FiO2 35% and PEEP of 8. Wean mechanical ventilation as tolerated, VAP bundle. Continue hemodialysis per nephrology recommendations. Continue antibiotics per ID recommendations until 08/01/2020. Repeat blood cultures have been negative. Hold systemic anticoagulation in the setting of severe anemia. 07/30: Patient currently with AC mode rate of 14, tidal volume 450, FiO2 40% and PEEP of 8. Wean mechanical ventilation as tolerated, VAP bundle. Continue hemodialysis per nephrology recommendations. Continue antibiotics per ID recommendations. Hold systemic anticoagulation in the setting of severe anemia. 07/31: Patient currently with AC mode ventilation rate 30, tidal volume 450 FiO2 100%, pressure support 16 and PEEP of 8. Wean mechanical ventilation as tolerated, VAP bundle. Continue hemodialysis per nephrology recommendations. Continue antibiotics per ID recommendations. Patient currently on ampicillin. Hold systemic anticoagulation in the setting of severe anemia. Continue restraints for safety. Continue pressors to maintain MAP > 65. Awaiting family decision to discharge to LTAC. 08/01: If patient develops worsening sepsis ID would like to initiate vancomycin and cefepime, and [facility] would like to add vasopressin. The time my examination patient is on assist control 450/30/8/.60 with an ABG of 7.3/42/111/21 with a base excess of -4. Patient remains sedated on propofol and fentanyl with vas opressor support with Levophed. No acute events reported overnight. Per vascular surgery if patient's blood cultures are positive will consider a Vas- Cath exchange on a clean wire with ChloraPrep during the exchange and attempt to decrease bioburden. No acute events reported overnight. Patient's H/H today was 6.8/20.5 and he will receive 1 unit PRBC and we will recheck CBC in the a.m. and transfuse as needed. 08/02: Right IJ dialysis catheter changed over wire, per [facility] ok to transfer to LTAC after next HD session and ID started cefepime. The time my examination patient remains on vasopressin and Levophed. Remains on assist control 450/30/H/0.60 with a T-max of 100.7 overnight. His sputum is growing GNR. 08/03: Tracheal aspirate from 08/03 shows heavy growth of gram-negative rods and patient is on cefepime. His IJ IVC was changed over wire to IJ dialysis yesterday. Patient remains on assist control 450/30/8/0.40 and sedated on propofol and fentanyl and the vasopressor support with Levophed. Patient received hemodialysis today. Patient remains in atrial flutter however his heart rate 110s and cardiology is aware. 08/04: At the time my examination patient was on vasopressin at 0.03 units and sedated with fentanyl and propofol. Current vent settings 450/25/8/0.40 and his rate was decreased per [facility]. RT to obtain ABG tonight. [facility] has restarted the patient on heparin subcu and we will monitor for bleeding. Patient is awaiting LTAC transfer. Infectious disease has started the patient on meropenem renally adjusted due to MDR Pseudomonas. Patient is status post debridement with surgery yesterday 08/05: The time of examination patient was on Levophed at 4 MCG, sedated on propofol and fentanyl and on assist control 450/20/8/0.40. Patient will be dialyzed today as he is on Saturday HD patient. We are still awaiting LTAC placement. No acute events reported overnight. Patient still remains on renally dosed antibiotic therapy. 08/06/20; patient agree multidrug-resistant Pseudomonas from sputum, blood culture was positive for Enterococcus. ID was consulted and patient is on meropenem since 08/04/2020. Patient is still spiking fever. Patient is off pressors since yesterday. Blood pressure is stable. Patient is a bit tachycardic 118. I have discussed with [facility] physician and they are planning to take him to [place]. Patient is stable for transfer. History Interval history: Patient was seen and evaluated this morning Patient is nonresponsive On PEG and trach, on mechanical ventilator Hospitalist Physical - Physical exam Narrative exam: Patient is on PEG and trach, on mechanical ventilation. FiO2 50%, PEEP 8 The patient appeared well nourished and normally developed. Vital signs as documented. Head exam is unremarkable. No scleral icterus . Neck is without jugular venous distension, thyromegaly, or carotid bruits. Lungs are clear to auscultation. Cardiac exam reveals regular rate and Rhythm. Abdominal exam reveals normal bowel sounds, nontender, no organomegaly. Extremities are nonedematous and both femoral and pedal pulses are normal. MOTOR VEHICLE REPRESENTATIVE: Patient is nonresponsive. - Constitutional Vitals: Temp Pulse Resp BP Pulse Ox 99.4 F 117 H 22 110/53 94 08/06/20 08:00 08/06/20 10:00 08/06/20 10:00 08/06/20 10:00 08/06/20 10:00 General appearance: Present: no acute distress, well-nourished, other (Patient remains on mechanical ventilation) HEART Score - HEART Score Troponin: Troponin T < 0.010 ng/mL (0.00-0.029) 06/17/20 12:33 Results - Labs CBC & Chem 7: 08/05/20 Unknown 08/03/20 04:00 Labs: Laboratory Last Values WBC 22.3 K/mm3 (4.5-11.0) H 08/05/20 Unknown RBC 2.85 M/mm3 (3.65-5.03) L 08/05/20 Unknown Hgb 8.5 gm/dl (11.8-15.2) L 08/05/20 Unknown Hct 25.7 % (35.5-45.6) L 08/05/20 Unknown MCV 90 fl (84-94) 08/05/20 Unknown MCH 30 pg (28-32) 08/05/20 Unknown MCHC 33 % (32-34) 08/05/20 Unknown RDW 16.0 % (13.2-15.2) H 08/05/20 Unknown Plt Count 276 K/mm3 (140-440) 08/05/20 Unknown Lymph % (Auto) 3.2 % (13.4-35.0) L 07/29/20 04:39 Nelson % (Auto) 7.0 % (0.0-7.3) 07/29/20 04:39 Eos % (Auto) 2.1 % (0.0-4.3) 07/29/20 04:39 Baso % (Auto) 1.2 % (0.0-1.8) 07/29/20 04:39 Lymph # (Auto) 1.2 K/mm3 (1.2-5.4) 07/29/20 04:39 Nelson # (Auto) 2.7 K/mm3 (0.0-0.8) H 07/29/20 04:39 Eos # (Auto) 0.8 K/mm3 (0.0-0.4) H 07/29/20 04:39 Baso # (Auto) 0.4 K/mm3 (0.0-0.1) H 07/29/20 04:39 Add Manual Diff Complete 07/31/20 09:00 Total Counted 100 07/31/20 09:00 Seg Neutrophils % 86.5 % (40.0-70.0) H 07/29/20 04:39 Seg Neuts % (Manual) 85.0 % (40.0-70.0) H 07/31/20 09:00 Band Neutrophils % 8.0 % 07/31/20 09:00 Lymphocytes % (Manual) 1.0 % (13.4-35.0) L 07/31/20 09:00 Reactive Lymphs % (Man) 1.0 % 06/23/20 04:00 Monocytes % (Manual) 6.0 % (0.0-7.3) 07/31/20 09:00 Eosinophils % (Manual) 4.0 % (0.0-4.3) 07/27/20 04:00 Basophils % (Manual) 1.0 % (0.0-1.8) 07/27/20 04:00 Metamyelocytes % 1.0 % 07/26/20 Unknown Myelocytes % 1.0 % 07/25/20 05:39 Promyelocytes % 0 % 07/17/20 15:25 Nucleated RBC % 1.0 % (0.0-0.9) H 07/31/20 09:00 Seg Neutrophils # 33.4 K/mm3 (1.8-7.7) H 07/29/20 04:39 Seg Neutrophils # Man 26.2 K/mm3 (1.8-7.7) H 07/31/20 09:00 Band Neutrophils # 2.5 K/mm3 07/31/20 09:00 Lymphocytes # (Manual) 0.3 K/mm3 (1.2-5.4) L 07/31/20 09:00 Abs React Lymphs (Man) 0.0 K/mm3 07/31/20 09:00 Monocytes # (Manual) 1.8 K/mm3 (0.0-0.8) H 07/31/20 09:00 Eosinophils # (Manual) 0.0 K/mm3 (0.0-0.4) 07/31/20 09:00 Basophils # (Manual) 0.0 K/mm3 (0.0-0.1) 07/31/20 09:00 Metamyelocytes # 0.0 K/mm3 07/31/20 09:00 Myelocytes # 0.0 K/mm3 07/31/20 09:00 Promyelocytes # 0.0 K/mm3 07/31/20 09:00 Blast Cells # 0.0 K/mm3 07/31/20 09:00 Pathologist Review 07/17/20 15:25 WBC Morphology Not Reportable 07/31/20 09:00 Hypersegmented Neuts Not Reportable 07/31/20 09:00 Hyposegmented Neuts Not Reportable 07/31/20 09:00 Hypogranular Neuts Not Reportable 07/31/20 09:00 Smudge Cells Not Reportable 07/31/20 09:00 Toxic Granulation Not Reportable 07/31/20 09:00 Toxic Vacuolation Not Reportable 07/31/20 09:00 Dohle Bodies Not Reportable 07/31/20 09:00 Pelger-Huet Anomaly Not Reportable 07/31/20 09:00 Carlito Rods Not Reportable 07/31/20 09:00 Platelet Estimate Consistent w auto 07/31/20 09:00 Clumped Platelets Not Reportable 07/31/20 09:00 Plt Clumps, EDTA Not Reportable 07/31/20 09:00 Large Platelets Not Reportable 07/31/20 09:00 Giant Platelets Not Reportable 07/31/20 09:00 Platelet Satelliting Not Reportable 07/31/20 09:00 Plt Morphology Comment Not Reportable 07/31/20 09:00 RBC Morphology Not Reportable 07/31/20 09:00 Dimorphic RBCs Not Reportable 07/31/20 09:00 Polychromasia Not Reportable 07/31/20 09:00 Hypochromasia Not Reportable 07/31/20 09:00 Poikilocytosis Not Reportable 07/31/20 09:00 Anisocytosis 1+ 07/31/20 09:00 Microcytosis Not Reportable 07/31/20 09:00 Macrocytosis Not Reportable 07/31/20 09:00 Spherocytes Not Reportable 07/31/20 09:00 Pappenheimer Bodies Not Reportable 07/31/20 09:00 Sickle Cells Not Reportable 07/31/20 09:00 Target Cells Not Reportable 07/31/20 09:00 Tear Drop Cells Not Reportable 07/31/20 09:00 Ovalocytes Not Reportable 07/31/20 09:00 Stomatocytes Few 07/27/20 04:00 Helmet Cells Not Reportable 07/31/20 09:00 [place] Bodies Not Reportable 07/31/20 09:00 [place] Rings Not Reportable 07/31/20 09:00 Livier Cells Not Reportable 07/31/20 09:00 Bite Cells Not Reportable 07/31/20 09:00 Crenated Cell Not Reportable 07/31/20 09:00 Elliptocytes Not Reportable 07/31/20 09:00 Acanthocytes (Spur) Not Reportable 07/31/20 09:00 Rouleaux Not Reportable 07/31/20 09:00 Hemoglobin C Crystals Not Reportable 07/31/20 09:00 Schistocytes Not Reportable 07/31/20 09:00 Malaria parasites Not Reportable 07/31/20 09:00 Victoriano Bodies Not Reportable 07/31/20 09:00 Hem Pathologist Commnt No 07/31/20 09:00 PT 15.3 Sec. (12.2-14.9) H 07/24/20 20:40 INR 1.21 (0.87-1.13) H 07/24/20 20:40 APTT 36.1 Sec. (24.2-36.6) 07/24/20 20:40 Fibrinogen 419 mg/dl (211-480) 07/15/20 08:21 D-Dimer 6608.00 ng/mlDDU (0-234) H 07/03/20 14:50 Heparin Anti-Xa Level < 0.10 U.I./ml (0.3-0.7) L 06/26/20 01:30 ABG pH 7.342 (7.320-7.450) 08/03/20 21:00 POC ABG pCO2 48.3 mmHg (32.0-48.0) H 08/03/20 21:00 ABG pCO2 44.4 mm Hg 07/28/20 14:31 POC ABG pO2 67.6 mmHg (83-108) L 08/03/20 21:00 ABG pO2 68.0 mm Hg (80.0-90.0) L 07/28/20 14:31 POC ABG HCO3 25.6 08/03/20 21:00 ABG HCO3 23.1 mmol/L (20.0-26.0) 07/28/20 14:31 ABG O2 Saturation 93.5 (0-100) 08/03/20 21:00 ABG O2 Content 11.4 (0.0-44) 07/28/20 14:31 POC ABG Base Excess -0.4 08/03/20 21:00 ABG Base Excess -2.7 mmol/L (-2.0-3.0) L 07/28/20 14:31 ABG Hemoglobin 9.8 (12.0-17.5) L 08/03/20 21:00 ABG Oxyhemoglobin 92.2 (94-98) L 08/03/20 21:00 ABG Carboxyhemoglobin 2.2 % (0.0-5.0) 07/28/20 14:31 ABG Methemoglobin 0.3 (0.0-1.5) 08/03/20 21:00 ABG Sodium 133.5 mmol/L (136.0-145.0) L 08/03/20 21:00 ABG Potassium 3.5 mmol/L (3.40-4.50) 08/03/20 21:00 ABG Chloride 101.0 mmol/L (98-107) 08/03/20 21:00 ABG Glucose 115 mg/dL (65-95) H 08/03/20 21:00 Oxyhemoglobin 89.9 % (95.0-99.0) L 07/28/20 14:31 Carboxyhemoglobin 1.1 (0.5-1.5) 08/03/20 21:00 FiO2 35 % 07/28/20 14:31 FiO2 % 40.0 08/03/20 21:00 Sodium 134 mmol/L (137-145) L 08/03/20 04:00 Potassium 3.7 mmol/L (3.6-5.0) 08/03/20 04:00 Chloride 97.3 mmol/L (98-107) L 08/03/20 04:00 Carbon Dioxide 23 mmol/L (22-30) 08/03/20 04:00 Anion Gap 17 mmol/L 08/03/20 04:00 BUN 70 mg/dL (9-20) H 08/03/20 04:00 Creatinine 2.6 mg/dL (0.8-1.3) H 08/03/20 04:00 Estimated GFR 30 ml/min 08/03/20 04:00 BUN/Creatinine Ratio 27 % 08/03/20 04:00 Glucose 102 mg/dL (75-100) H 08/03/20 04:00 POC Glucose 110 mg/dL (70-105) H 08/06/20 05:35 Lactic Acid 0.90 mmol/L (0.7-2.0) 07/23/20 Unknown Calcium 8.1 mg/dL (8.4-10.2) L 08/03/20 04:00 Phosphorus 9.40 mg/dL (2.5-4.5) H 06/30/20 03:50 Magnesium 2.70 mg/dL (1.7-2.3) H 06/18/20 20:33 Ferritin 1171.0 ng/mL (30.0-300.0) H 07/03/20 14:50 Total Bilirubin 0.20 mg/dL (0.1-1.2) 07/24/20 06:40 Direct Bilirubin 0.5 mg/dL (0-0.2) H 07/05/20 08:21 Indirect Bilirubin 0.1 mg/dL 07/05/20 08:21 AST 46 units/L (5-40) H 07/24/20 06:40 ALT 74 units/L (7-56) H 07/24/20 06:40 Alkaline Phosphatase 180 units/L (35-129) H 07/24/20 06:40 Lactate Dehydrogenase 525 units/L (91-180) H 07/03/20 14:50 Total Creatine Kinase 618 units/L (55-170) H 06/29/20 Unknown Troponin T < 0.010 ng/mL (0.00-0.029) 06/17/20 12:33 C-Reactive Protein 31.50 mg/dL (0.00-1.30) H 07/03/20 14:50 Total Protein 4.6 g/dL (6.3-8.2) L 07/24/20 06:40 Albumin 2.0 g/dL (3.9-5) L 07/24/20 06:40 Albumin/Globulin Ratio 0.8 % 07/24/20 06:40 Triglycerides 262 mg/dL (2-149) H 08/04/20 05:00 Procalcitonin 6.05 ng/mL (<0.15) 07/13/20 06:59 Arterial Blood Glucose 115 mg/dL (65-95) H 08/03/20 21:00 Arterial Blood Ionized Calcium 4.5 mg/dL (4.6-5.3) L 08/03/20 21:00 Urine Color Yellow (Yellow) 06/17/20 15:57 Urine Turbidity Clear (Clear) 06/17/20 15:57 Urine pH 6.0 (5.0-7.0) 06/17/20 15:57 Ur Specific [place] 1.019 (1.003-1.030) 06/17/20 15:57 Urine Protein 30 mg/dl mg/dL (Negative) 06/17/20 15:57 Urine Glucose (UA) Neg mg/dL (Negative) 06/17/20 15:57 Urine Ketones Neg mg/dL (Negative) 06/17/20 15:57 Urine Blood Sm (Negative) 06/17/20 15:57 Urine Nitrite Neg (Negative) 06/17/20 15:57 Ur Reducing Substances Not Reportable 06/17/20 15:57 Urine Bilirubin Neg (Negative) 06/17/20 15:57 Urine Ictotest Not Reportable 06/17/20 15:57 Urine Urobilinogen < 2.0 mg/dL (<2.0) 06/17/20 15:57 Ur Leukocyte Esterase Neg (Negative) 06/17/20 15:57 Urine WBC (Auto) 1.0 /HPF (0.0-6.0) 06/17/20 15:57 Urine RBC (Auto) 2.0 /HPF (0.0-6.0) 06/17/20 15:57 Urine Mucus Few /HPF 06/17/20 15:57 Urine Creatinine 192.4 mg/dL (0.1-20.0) H 06/18/20 15:00 Urine Sodium 28 mmol/L 06/18/20 15:00 Urine Chloride 31.1 mmolL (110-250) L 06/18/20 15:00 Nasal Screen MRSA (PCR) Negative (Negative) 06/19/20 10:38 Vancomycin Trough 22.7 ug/mL (5.0-20.0) H 06/20/20 08:25 Random Vancomycin 13.5 ug/mL (0-40.0) 07/16/20 07:17 Coronavirus (PCR) Negative (Negative) 07/22/20 Unknown Hepatitis A IgM Ab Non-reactive (NonReactive) 06/22/20 17:00 Hep Bs Antigen Non-reactive (Negative) 06/22/20 17:00 Hep B Core IgM Ab Non-reactive (NonReactive) 06/22/20 17:00 Hepatitis C Antibody Non-reactive (NonReactive) 06/22/20 17:00 SARS-CoV-2 IgG Ab Nonreactive (NonReactive) 07/04/20 05:20 Blood Type A POSITIVE 07/30/20 23:13 Antibody Screen Negative 07/30/20 23:13 Crossmatch See Detail 07/30/20 23:13 Microbiology: Microbiology 07/31/20 16:16 Peripheral/Venous Blood Culture - Final NO GROWTH AFTER 5 DAYS 07/31/20 16:15 Peripheral/Venous Blood Culture - Final NO GROWTH AFTER 5 DAYS - Diagnostic Impressions Diagnostic Impressions: Echocardiogram 06/29/20 06:00 Transthoracic Echocardiogram Indication: A-fib BP: 105/47 HR: 99 Conclusions *The study is technically very difficult and limited due to poor acoustic windows. *Global left ventricular wall motion and contractility are within normal limits. *The estimated ejection fraction is 55-60%. *There is no pericardial effusion. Findings Procedure Info: The study quality is technically difficult. The study is technically limited due to poor acoustic windows. Left Ventricle: Global left ventricular wall motion and contractility are within normal limits. Global left ventricular systolic function is normal. The estimated ejection fraction is 55-60%. Left Atrium: The left atrium is not well visualized. Right Ventricle: The right ventricle is not well visualized. Right Atrium: The right atrium is not well visualized. Aortic Valve: The aortic valve is not well visualized. Mitral Valve: The mitral valve is not well visualized. Tricuspid Valve: The tricuspid valve is not well visualized. Pulmonic Valve: The pulmonic valve is not well visualized. Pericardium: There is no pericardial effusion. Venous: There is no change in the dimension of the inferior vena cava with respiration consistent with markedly increased right atrial pressure. Newell/IV: Voiding Method Incontinent Active Medications - Current Medications Current Medications: Generic Name Dose Route Start Last Admin Trade Name Freq PRN Reason Stop Dose Admin Acetaminophen 650 mg 06/17/20 14:17 08/06/20 00:07 Acetaminophen 325 Mg Tab PO 650 mg Q4H PRN Administration Pain MILD(1-3)/Fever >100.5/ROBERTS Albuterol 2.5 mg 07/19/20 12:15 Albuterol 2.5 Mg/3 Ml Nebu IH Q6HRT PRN Shortness Of Breath Alteplase, Recombinant 2 mg 07/27/20 18:40 Alteplase 2 Mg Inj IV PAM PRN LINE FLUSH Amiodarone HCl 200 mg 07/19/20 14:00 08/06/20 09:34 Amiodarone 200 Mg Tab PO 200 mg BID CONNOR Administration Lipase/Protease/Amylase 1 each 06/19/20 12:15 Lipase 10,500/Protease 25,000/Amylase 43,750 (Units) Dr Cap FEEDTUBE PRN PRN For Clogged Feeding Tube Ascorbic Acid 250 mg 06/17/20 22:00 08/06/20 09:34 Ascorbic Acid 250 Mg Tab PO 250 mg BID CONNOR Administration Cholecalciferol 1,000 unit 06/18/20 10:00 08/06/20 09:34 Cholecalciferol (Vit D3) 1000 Unit (25 Mcg) Tab PO 1,000 unit DAILY CONNOR Administration Dextrose 50 ml 07/26/20 22:00 07/27/20 06:42 Dextrose 50% In Water (25gm) 50 Ml Syringe IV 50 ml Q30MIN PRN Administration Hypoglycemia Protocol Docusate Sodium 100 mg 06/23/20 15:00 08/06/20 09:33 Docusate Sodium 100 Mg/10 Ml Oral Liqd FEEDTUBE 100 mg BID CONNOR Administration Fentanyl 50 mcg 06/18/20 01:02 07/27/20 16:59 Fentanyl 100 Mcg/2 Ml Inj IV 50 mcg Q10MIN PRN Administration ANALGESIA Heparin Sodium (Porcine) 5,000 unit 06/22/20 12:53 07/28/20 20:45 Heparin 10,000 Unit/1 Ml Vial IV 5,000 unit PAM PRN Administration hemodialysis Hydrophilic Ointment 1 applic 06/17/20 22:52 07/12/20 20:22 Lip Therapy Vaseline TP 1 applic Q2HR PRN Administration Dry Lips Propofol 1,000 mg in 100 mls @ 3.402 mls/hr 06/18/20 01:00 08/06/20 10:26 Diprivan 10 Mg/Ml IV 20 mcg/kg/min TITR CONNOR 13.608 mls/hr Administration Protocol 5 MCG/KG/MIN Fentanyl Citrate 2,000 mcg in 100 mls @ 8 mls/hr 06/18/20 02:00 08/06/20 08:31 Fentanyl Drip Premix IV 2 mcg/kg/hr TITR CONNOR 16 mls/hr Administration Protocol 1 MCG/KG/HR Norepinephrine 4 mg in 250 mls @ 7.5 mls/hr 07/08/20 02:06 08/05/20 08:46 Levophed Drip 4 Mg/Ns 250 Ml IV 2 mcg/min TITR CONNOR 7.5 mls/hr Administration Protocol 2 MCG/MIN Vasopressin 20 unit/ Sodium 101 mls @ 9.09 mls/hr 07/11/20 11:00 08/04/20 11:43 Chloride IV 0 units/min TITR CONNOR 0 mls/hr Titration Protocol 0.03 UNITS/MIN Amiodarone HCl 900 mg/ 500 mls @ 33.333 mls/hr 07/27/20 17:00 07/31/20 17:58 Dextrose IV 0.5 mg/min DIRECT CONNOR 16.667 mls/hr Administration Protocol 1 MG/MIN Sodium Chloride 100 mls @ 999 mls/hr 07/27/20 18:40 Nacl 0.9% IV PAM PRN Hypotension Meropenem 1,000 mg/ Sodium 100 mls @ 100 mls/hr 08/04/20 12:00 08/06/20 09:38 Chloride IV 08/13/20 10:59 100 mls/hr Q24HR CONNOR Administration Protocol Insulin Human Regular 0 units 06/18/20 12:00 08/06/20 09:34 Insulin Regular, Human 100 Units/1 Ml SUB-Q Not Given Q6HR CONNOR Protocol Lansoprazole 30 mg 08/05/20 11:00 08/06/20 09:34 Lansoprazole 30 Mg Solutab FEEDTUBE 30 mg BID CONNOR Administration Midodrine 10 mg 08/03/20 14:00 08/06/20 09:33 Midodrine 5 Mg Tab PO 10 mg TID CONNOR Administration Multi-Ingred Cream/Lotion/Oil/Oint 1 applic 06/17/20 22:52 07/12/20 20:22 Mineral Oil/Petrolatum, White Ophth Oint 3.5 Gm OU 1 applic Q4HR PRN Administration Dry Eye(s) Ondansetron HCl 4 mg 06/17/20 14:17 Ondansetron 4 Mg/2 Ml Inj IV Q8H PRN Nausea And Vomiting Polyethylene Glycol 17 gm 06/23/20 15:00 08/06/20 09:34 Polyethylene Glycol 3350 17 Gm Powder PO 17 gm QDAY CONNOR Administration Quetiapine Fumarate 200 mg 06/28/20 13:00 08/06/20 09:33 Quetiapine 200 Mg Tab PO 200 mg BID CONNOR Administration Scopolamine 1 each 07/29/20 14:00 08/04/20 09:27 Scopolamine Transdermal Patch 72 Hr TD 1 each Q3D CONNOR Administration Simple Syrup 15 ml 06/19/20 12:15 07/26/20 13:55 Simple Syrup 15 Ml FEEDTUBE 15 ml PRN PRN Administration Hypoglycemia Simple Syrup 30 ml 06/19/20 12:15 07/19/20 06:04 Simple Syrup 15 Ml FEEDTUBE 30 ml PRN PRN Administration Hypoglycemia Sodium Bicarbonate 325 mg 06/19/20 12:15 07/11/20 20:00 Sodium Bicarbonate 325 Mg Tab FEEDTUBE 325 mg PRN PRN Administration For Clogged Feeding Tube Sodium Chloride 10 ml 06/17/20 22:00 08/06/20 09:35 Sodium Chloride 0.9% 10 Ml Flush Syringe IV 10 ml BID CONNOR Administration Sodium Chloride 10 ml 06/17/20 14:17 07/30/20 09:46 Sodium Chloride 0.9% 10 Ml Flush Syringe IV 10 ml PRN PRN Administration LINE FLUSH Sodium Hypochlorite 1 applic 07/20/20 10:00 08/06/20 10:27 Sodium Hypochlorite, Dakin's 1/2 Strength (0.25%) 473 Ml Topical Soln TP 1 applicatio BID CONNOR Administration Zinc Sulfate 220 mg 06/17/20 22:00 08/06/20 09:34 Zinc Sulfate 220 Mg Cap PO 220 mg BID CONNOR Administration Nutrition/Malnutrition Assess - Dietary Evaluation Nutrition/Malnutrition Findings: Nutrition Notes Start: 06/18/20 10:28 Freq: Status: Active Protocol: Document 08/04/20 10:43 [facility] (Rec: 08/04/20 10:52 [facility] [id number]) Nutrition Notes Initial or Follow up Brief Note Current Diet Nepro at 55ml/hr Labs/Tests TG 262 Height 6 ft Weight 152.6 kg [place] Body Weight (kg) 80.90 BMI 45.6 Subjective/Other Information Pt is s/p debridement of stage 4 pressure ulcer on yesterday . Pt accepted to LTAC facility; transfer pending pt' s medical stability. He remains on vent support. Is patient on ventilator? Yes Is Patient Ambulatory and/or Out of Bed No REE-([place]-confined to bed) 2840.916 Kcal/Kg value to use for calculation 14 Approximate Energy Requirements Using 2136 kcal/Kg Calculation Used for Recommendations Kcal/kg Additional Notes Pro needs: up to 2.5g/kg IBW: up to 202g/day Fluid needs: 1-1.5L/day Nutrition Intervention Follow-Up By: 08/09/20 Additional Comments F/U: stable TF, vent status, pressor support, Gee administration
--- NOTE | 2020-08-06 15:40 | Progress Note ---
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 Kidney function worsened and patient developed hyperkalemia, refractory acidosis and worsening azotemia. Hemodialysis initiated on June 22. Hemodynamic s tatus had improved and patient has been weaned off of vasopressors. Volume status is improved. Continue hemodialysis on Saturday, Saturday and Saturday and isolated ultrafiltration only as needed (2) Severe sepsis with septic shock Current Visit: Yes Status: Acute Plan to address problem: Continue antibiotics per infectious disease business process consultant appropriately adjusted to the degree of renal function. (3) Hyperkalemia Current Visit: Yes Status: Acute Plan to address problem: Potassium has improved with intensive dialysis. Follow-up (4) Metabolic acidosis Current Visit: Yes Status: Acute Plan to address problem: Acidosis improving with dialysis. (5) Acute respiratory failure with hypoxia Current Visit: Yes Status: Acute Plan to address problem: Continue respiratory management by pulmonary (6) Pneumonia due to COVID-19 virus Current Visit: Yes Status: Acute Plan to address problem: IV Dexamethasone Supplemental oxygen/Respiratory support as needed Remdesevir contra-indicated due to Kidney failure Prophylactic anticoagulation Continue management per infectious disease (7) Transaminitis Current Visit: Yes Status: Acute Plan to address problem: Hypoperfusion injury. Follow-up liver function test Subjective Date of service: 08/06/20 Principal diagnosis: ARF; Septic Shock; COVID-19 PNA; Atrial fibrillation; Obesity Interval history: Patient seen lying in bed. On the ventilator. On fentanyl and Diprivan infusions. Unresponsive Objective - Exam Narrative Exam: Obese middle-aged male lying in bed on the ventilator HEENT: NCAT, trach intact on ventilator Neck: Supple, no venous distention CVS: S1S2 RRR with no murmur, rub or gallop Chest: Coarse breath sounds Abdomen: Protuberant, soft, nontender, no organomegaly, bowel sounds are present Extremities: mild edema thighs Neuro: Not interacting /noncommunicative -sedated - Vital Signs Vital signs: Vital Signs - 12hr 08/06/20 08/06/20 08/06/20 03:41 03:51 04:00 Temperature Pulse Rate 107 H 125 H 116 H Respiratory 43 H 36 H Rate Blood Pressure 134/61 116/55 O2 Sat by Pulse 96 97 91 Oximetry O2 Sat by Pulse Oximetry [ Assessment] 08/06/20 08/06/20 08/06/20 04:01 04:11 04:21 Temperature Pulse Rate 114 H 113 H 111 H Respiratory 35 H 37 H 38 H Rate Blood Pressure 139/59 124/59 O2 Sat by Pulse 96 93 97 Oximetry O2 Sat by Pulse Oximetry [ Assessment] 08/06/20 08/06/20 08/06/20 04:30 04:45 05:00 Temperature Pulse Rate 130 H 113 H Respiratory 39 H 28 H 25 H Rate Blood Pressure 121/63 128/56 121/63 O2 Sat by Pulse 94 93 95 Oximetry O2 Sat by Pulse Oximetry [ Assessment] 08/06/20 08/06/20 08/06/20 05:15 05:30 05:46 Temperature Pulse Rate 131 H 122 H 105 H Respiratory 20 35 H 39 H Rate Blood Pressure 122/55 116/55 114/42 O2 Sat by Pulse 100 100 86 Oximetry O2 Sat by Pulse Oximetry [ Assessment] 08/06/20 08/06/20 08/06/20 06:00 06:15 06:30 Temperature Pulse Rate 116 H 113 H 114 H Respiratory 33 H 30 H 39 H Rate Blood Pressure 114/50 117/45 118/53 O2 Sat by Pulse 94 91 96 Oximetry O2 Sat by Pulse Oximetry [ Assessment] 08/06/20 08/06/20 08/06/20 06:46 07:00 07:15 Temperature Pulse Rate 117 H 114 H 126 H Respiratory 34 H 21 25 H Rate Blood Pressure 102/45 95/55 98/59 O2 Sat by Pulse 87 91 92 Oximetry O2 Sat by Pulse Oximetry [ Assessment] 08/06/20 08/06/20 08/06/20 07:30 07:45 08:00 Temperature 99.4 F Pulse Rate 126 H 139 H 133 H Respiratory 24 32 H 24 Rate Blood Pressure 112/52 111/53 116/61 O2 Sat by Pulse 90 92 91 Oximetry O2 Sat by Pulse Oximetry [ Assessment] 08/06/20 08/06/20 08/06/20 08:15 08:30 08:35 Temperature Pulse Rate 120 H 127 H 118 H Respiratory 26 H 22 Rate Blood Pressure 108/47 115/52 115/52 O2 Sat by Pulse 89 91 93 Oximetry O2 Sat by Pulse 95 Oximetry [ Assessment] 08/06/20 08/06/20 08/06/20 08:45 09:00 09:15 Temperature Pulse Rate 133 H 114 H 111 H Respiratory 25 H 16 26 H Rate Blood Pressure 125/45 109/49 103/52 O2 Sat by Pulse 100 91 93 Oximetry O2 Sat by Pulse Oximetry [ Assessment] 08/06/20 08/06/20 08/06/20 09:30 09:45 10:00 Temperature Pulse Rate 110 H 120 H 117 H Respiratory 21 29 H 22 Rate Blood Pressure 102/51 107/49 110/53 O2 Sat by Pulse 92 91 94 Oximetry O2 Sat by Pulse Oximetry [ Assessment] 08/06/20 08/06/20 08/06/20 11:00 12:00 12:35 Temperature Pulse Rate 107 H 119 H 113 H Respiratory 38 H 30 H Rate Blood Pressure 114/54 136/56 129/67 O2 Sat by Pulse 92 88 92 Oximetry O2 Sat by Pulse Oximetry [ Assessment] 08/06/20 08/06/20 13:00 15:13 Temperature Pulse Rate 113 H 116 H Respiratory 25 H Rate Blood Pressure 128/67 120/59 O2 Sat by Pulse 94 95 Oximetry O2 Sat by Pulse 95 Oximetry [ Assessment] - Lab 08/05/20 Unknown 08/03/20 04:00 Most recent lab results ABG pH 7.342 (7.320-7.450) 08/03/20 21:00 ABG pCO2 44.4 mm Hg 07/28/20 14:31 ABG pO2 68.0 mm Hg (80.0-90.0) L 07/28/20 14:31 ABG HCO3 23.1 mmol/L (20.0-26.0) 07/28/20 14:31 ABG O2 Saturation 93.5 (0-100) 08/03/20 21:00 Calcium 8.1 mg/dL (8.4-10.2) L 08/03/20 04:00 Phosphorus 9.40 mg/dL (2.5-4.5) H 06/30/20 03:50 Magnesium 2.70 mg/dL (1.7-2.3) H 06/18/20 20:33 Urine Creatinine 192.4 mg/dL (0.1-20.0) H 06/18/20 15:00 Urine Sodium 28 mmol/L 06/18/20 15:00 Medications & Allergies - Medications Allergies/Adverse Reactions: Allergies No Known Allergies Allergy (Unverified 06/17/20 14:24) Home Medications: Home Medications Medication Instructions Recorded Confirmed Last Taken Type ALBUTEROL NEB's [Proventil 0.083% 2.5 mg IH Q6HRT PRN nebu 08/02/20 Unknown Rx NEBS] Acetaminophen [Acetaminophen TAB] 650 mg PO Q4H PRN tablet 08/02/20 Unknown Rx Amiodarone [Cordarone 200 MG TAB] 200 mg PO BID tablet 08/02/20 Unknown Rx Ascorbic Acid [Vitamin C] 250 mg PO BID tablet 08/02/20 Unknown Rx Cholecalciferol Vit D3 [Vitamin D3 1,000 unit PO DAILY tablet 08/02/20 Unknown Rx 1,000 UNIT TAB] Dextrose 50% in Water [D50W (25GM) 50 ml IV Q30MIN PRN syringe 08/02/20 Unknown Rx Syringe] Docusate Sodium [Colace ORAL LIQ] 100 mg FEEDTUBE BID oral.liqd 08/02/20 Unknown Rx Epoetin Solitario-Epbx 10,000 Unit 10,000 unit IV PAM PRN vial 08/02/20 Unknown Rx [Retacrit] Heparin 5,000 unit IV PAM PRN vial 08/02/20 Unknown Rx Insulin Regular, Human [HumuLIN R] 0 units SUB-Q Q6HR units 08/02/20 Unknown Rx Lipase/Protease/Amylase [Pancreaze 1 each FEEDTUBE PRN PRN capsule 08/02/[address] 10,500 Unit] Min Oil/Petrolatum [Artificial 1 applic OU Q4HR PRN tube 08/02/20 Unknown Rx Tears Ophth Oint] Pantoprazole [Protonix INJ] 40 mg IV BID vial 08/02/20 Unknown Rx Petrolatum,White [Vaseline Lip 1 applic TP Q2HR PRN tube 08/02/20 Unknown Rx Therapy] QUEtiapine [SEROquel] 200 mg PO BID tablet 08/02/20 Unknown Rx Scopolamine [Transderm-Scop] 1 each TD Q3D patch 08/02/20 Unknown Rx Simple Syrup 15 ml FEEDTUBE PRN PRN oral.liqd 08/02/20 Unknown Rx Simple Syrup 30 ml FEEDTUBE PRN PRN oral.liqd 08/02/20 Unknown Rx Sodium Bicarbonate 325 mg FEEDTUBE PRN PRN tablet 08/02/20 Unknown Rx Sodium Chloride 0.9% Int [Sodium 10 ml IV BID syringe 08/02/20 Unknown Rx Chloride Flush Syringe 10 ml] Sodium Chloride 0.9% Int [Sodium 10 ml IV PRN PRN syringe 08/02/20 Unknown Rx Chloride Flush Syringe 10 ml] Sodium Hypochlorite [Dakin's Half 1 applic TP BID bottle 08/02/20 Unknown Rx Strength] Vasopressin [Vasostrict] 20 unit IV TITR vial 08/02/20 Unknown Rx Zinc Sulfate 220 mg PO BID capsule 08/02/20 Unknown Rx polyethylene glycoL 3350 [Miralax 17 gm PO QDAY powd.pack 08/02/20 Unknown Rx 3350] Active Medications: Generic Name Dose Route Start Last Admin Trade Name Freq PRN Reason Stop Dose Admin Acetaminophen 650 mg 06/17/20 14:17 08/06/20 00:07 Acetaminophen 325 Mg Tab PO 650 mg Q4H PRN Administration Pain MILD(1-3)/Fever >100.5/ROBERTS Albuterol 2.5 mg 07/19/20 12:15 Albuterol 2.5 Mg/3 Ml Nebu IH Q6HRT PRN Shortness Of Breath Alteplase, Recombinant 2 mg 07/27/20 18:40 Alteplase 2 Mg Inj IV PAM PRN LINE FLUSH Amiodarone HCl 200 mg 07/19/20 14:00 08/06/20 09:34 Amiodarone 200 Mg Tab PO 200 mg BID CONNOR Administration Lipase/Protease/Amylase 1 each 06/19/20 12:15 Lipase 10,500/Protease 25,000/Amylase 43,750 (Units) Dr Kulkarni FEEDTUBE PRN PRN For Clogged Feeding Tube Ascorbic Acid 250 mg 06/17/20 22:00 08/06/20 09:34 Ascorbic Acid 250 Mg Tab PO 250 mg BID CONNOR Administration Cholecalciferol 1,000 unit 06/18/20 10:00 08/06/20 09:34 Cholecalciferol (Vit D3) 1000 Unit (25 Mcg) Tab PO 1,000 unit DAILY CONNOR Administration Dextrose 50 ml 07/26/20 22:00 07/27/20 06:42 Dextrose 50% In Water (25gm) 50 Ml Syringe IV 50 ml Q30MIN PRN Administration Hypoglycemia Protocol Docusate Sodium 100 mg 06/23/20 15:00 08/06/20 09:33 Docusate Sodium 100 Mg/10 Ml Oral Liqd FEEDTUBE 100 mg BID CONNOR Administration Fentanyl 50 mcg 06/18/20 01:02 07/27/20 16:59 Fentanyl 100 Mcg/2 Ml Inj IV 50 mcg Q10MIN PRN Administration ANALGESIA Heparin Sodium (Porcine) 5,000 unit 06/22/20 12:53 07/28/20 20:45 Heparin 10,000 Unit/1 Ml Vial IV 5,000 unit PAM PRN Administration hemodialysis Hydrophilic Ointment 1 applic 06/17/20 22:52 07/12/20 20:22 Lip Therapy Vaseline TP 1 applic Q2HR PRN Administration Dry Lips Propofol 1,000 mg in 100 mls @ 3.402 mls/hr 06/18/20 01:00 08/06/20 10:26 Diprivan 10 Mg/Ml IV 20 mcg/kg/min TITR CONNOR 13.608 mls/hr Administration Protocol 5 MCG/KG/MIN Fentanyl Citrate 2,000 mcg in 100 mls @ 8 mls/hr 06/18/20 02:00 08/06/20 08:31 Fentanyl Drip Premix IV 2 mcg/kg/hr TITR CONNOR 16 mls/hr Administration Protocol 1 MCG/KG/HR Norepinephrine 4 mg in 250 mls @ 7.5 mls/hr 07/08/20 02:06 08/05/20 08:46 Levophed Drip 4 Mg/Ns 250 Ml IV 2 mcg/min TITR CONNOR 7.5 mls/hr Administration Protocol 2 MCG/MIN Vasopressin 20 unit/ Sodium 101 mls @ 9.09 mls/hr 07/11/20 11:00 08/04/20 11:43 Chloride IV 0 units/min TITR CONNOR 0 mls/hr Titration Protocol 0.03 UNITS/MIN Amiodarone HCl 900 mg/ 500 mls @ 33.333 mls/hr 07/27/20 17:00 07/31/20 17:58 Dextrose IV 0.5 mg/min DIRECT CONNOR 16.667 mls/hr Administration Protocol 1 MG/MIN Sodium Chloride 100 mls @ 999 mls/hr 07/27/20 18:40 Nacl 0.9% IV PAM PRN Hypotension Meropenem 1,000 mg/ Sodium 100 mls @ 100 mls/hr 08/04/20 12:00 08/06/20 09:38 Chloride IV 08/13/20 10:59 100 mls/hr Q24HR CONNOR Administration Protocol Insulin Human Regular 0 units 06/18/20 12:00 08/06/20 13:54 Insulin Regular, Human 100 Units/1 Ml SUB-Q Not Given Q6HR [facility] Protocol Lansoprazole 30 mg 08/05/20 11:00 08/06/20 09:34 Lansoprazole 30 Mg Solutab FEEDTUBE 30 mg BID CONNOR Administration Midodrine 10 mg 08/03/20 14:00 08/06/20 13:54 Midodrine 5 Mg Tab PO 10 mg TID CONNOR Administration Multi-Ingred Cream/Lotion/Oil/Oint 1 applic 06/17/20 22:52 07/12/20 20:22 Mineral Oil/Petrolatum, White Ophth Oint 3.5 Gm OU 1 applic Q4HR PRN Administration Dry Eye(s) Ondansetron HCl 4 mg 06/17/20 14:17 Ondansetron 4 Mg/2 Ml Inj IV Q8H PRN Nausea And Vomiting Polyethylene Glycol 17 gm 06/23/20 15:00 08/06/20 09:34 Polyethylene Glycol 3350 17 Gm Powder PO 17 gm QDAY CONNOR Administration Quetiapine Fumarate 200 mg 06/28/20 13:00 08/06/20 09:33 Quetiapine 200 Mg Tab PO 200 mg BID CONNOR Administration Scopolamine 1 each 07/29/20 14:00 08/04/20 09:27 Scopolamine Transdermal Patch 72 Hr TD 1 each Q3D CONNOR Administration Simple Syrup 15 ml 06/19/20 12:15 07/26/20 13:55 Simple Syrup 15 Ml FEEDTUBE 15 ml PRN PRN Administration Hypoglycemia Simple Syrup 30 ml 06/19/20 12:15 07/19/20 06:04 Simple Syrup 15 Ml FEEDTUBE 30 ml PRN PRN Administration Hypoglycemia Sodium Bicarbonate 325 mg 06/19/20 12:15 07/11/20 20:00 Sodium Bicarbonate 325 Mg Tab FEEDTUBE 325 mg PRN PRN Administration For Clogged Feeding Tube Sodium Chloride 10 ml 06/17/20 22:00 08/06/20 09:35 Sodium Chloride 0.9% 10 Ml Flush Syringe IV 10 ml BID CONNOR Administration Sodium Chloride 10 ml 06/17/20 14:17 07/30/20 09:46 Sodium Chloride 0.9% 10 Ml Flush Syringe IV 10 ml PRN PRN Administration LINE FLUSH Sodium Hypochlorite 1 applic 07/20/20 10:00 08/06/20 10:27 Sodium Hypochlorite, Dakin's 1/2 Strength (0.25%) 473 Ml Topical Soln TP 1 applicatio BID CONNOR Administration Zinc Sulfate 220 mg 06/17/20 22:00 08/06/20 09:34 Zinc Sulfate 220 Mg Cap PO 220 mg BID CONNOR Administration
[2020-08-06 18:46] VITALS: BP 135/62
--- NOTE | 2020-08-07 07:46 | Discharge Summary ---
Providers - Providers Date of Admission: 06/17/20 14:17 Date of discharge: 08/07/20 Attending physician: MATIAS PERALTA MD 06/17/20 12:05 Consult to Physician [CONS] Urgent Comment: Consulting Provider: CATHERINE SAMS Physician Instructions: Reason For Exam: hypoxia covid 06/17/20 22:53 Consult to Dietitian/Nutrition [CONS] Routine Physician Instructions: Reason For Exam: Reason for Consult: Evaluate nutritional intake 06/17/20 23:29 Consult to Physician [CONS] Urgent Comment: Consulting Provider: ELKIN MANRIQUEZ Physician Instructions: Reason For Exam: Acute hypoxic respiratory failure, Pneumonia 06/18/20 09:27 Consult to Dietitian/Nutrition [CONS] Routine Physician Instructions: Reason For Exam: tf management while proned Reason for Consult: Write/Manage Tube Feeding 06/18/20 12:14 Consult to Physician [CONS] Routine Comment: Consulting Provider: JACINTO LATHAM Physician Instructions: Reason For Exam: covid, acute renal failure 06/22/20 13:03 Consult to Physician [CONS] Urgent Comment: called office/ [facility]ria Consulting Provider: DEBRA BONE Physician Instructions: Reason For Exam: Renal failure needs Trialysiscath for dialysis 07/01/20 15:37 Consult to Dietitian/Nutrition [CONS] Routine Physician Instructions: Reason For Exam: Reason for Consult: Write/Manage Tube Feeding 07/01/20 19:13 Consult to Wound/ET Nurse [CONS] Routine Reason For Exam: sacral wound 07/13/20 16:40 Consult to Physician [CONS] Routine Comment: called office/ bria Consulting Provider: LETY HINDS Physician Instructions: Reason For Exam: Rectal bleeding 07/16/20 10:27 Consult to Physician [CONS] Routine Comment: Consulting Provider: NELLY FOSTER Physician Instructions: Reason For Exam: LEUKOCYTOSIS 07/17/20 11:55 Consult to Physician [CONS] Routine Comment: Consulting Provider: CATHERINE SAMS Physician Instructions: Reason For Exam: Bacteremia; Septic Shock 07/19/20 17:22 Consult to Wound/ET Nurse [CONS] Routine Reason For Exam: sacrum wound worsen 07/20/20 09:09 Consult to Physician [CONS] Routine Comment: Consulting Provider: MANE KIRK Physician Instructions: Debridement of sacral decubitus Reason For Exam: sacral decubitus 07/23/20 14:25 Consult to Physician [CONS] Routine Comment: Consulting Provider: MANE KIRK Physician Instructions: Reason For Exam: Tracheostomy & PEG placement 07/31/20 18:54 Consult to Physician [CONS] Routine Comment: Consulting Provider: SARINA POOL Physician Instructions: Reason For Exam: trialysis access transfer 08/03/20 13:09 Consult to PICC Line RN [CONS] Routine Reason For Exam: Sepsis Type Line:: Midline Hospitalization Reason for admission: Septic shock, acute hypoxic respiratory, COVID-19 infection, paroxysmal A. Condition: Critical Procedures: PEG and trach Hospital course: History of Present Illness 59 YO Male with Obesity Hypoventilation Syndrome presents to ED for evaluation. Patient reports I feel weak and tired". Patient states that he has experienced generalized weakness, malaise, fatigue, decreased exercise tolerance, and shortness of breath over the past 1 week with persistently worsening symptoms with over the same timeframe. Patient states that he underwent a car coronavirus test over the weekend and was found to be coronavirus positive. EMS was notified and upon arrival the patient was found to be in distress with a pulse oximetry in the 60s. The patient was placed on supplemental oxygen and transported to [facility] for further care and evaluation of the aforementioned symptoms. Patient seen and evaluated in the emergency department. All lab imaging studies reviewed. Patient found to have a pulse oximetry of 76% on room air which is consistent with acute hypoxemic respiratory failure. Patient initiated on supplemental oxygen with mild improvement in symptoms. Patient also underwent chest x-ray and was found to have bilateral pneumonia complicated by sepsis, as well as acidosis. Patient admitted to medical floor and initiated on coronavirus protocol as well as pneumonia protocol. Patient denies fever, chills, chest pain, palpitations, productive cough, skin rash, recent ill contacts. No prior admission for review. No medication listed at time of admission for reconciliation. Advanced care planning conducted in ED. Severe septic shock COVID-19 pneumonia Sacral wound, stage 4 Leukemoid reaction Acute metabolic encephalopathy Acute hypoxic respiratory failure Enterococcus bacteremia MDR Pseudomonas in tracheal aspirate Pneumomediastinum Acute kidney injury likely secondary to acute tubular necrosis which progressed to hemodialysis SVT/proximal atrial fibrillation Elevated LFTs Anemia likely due to severe sepsis had declining renal function Morbid obesity Leukocytosis Hypoalbuminemia Sacral decubitus: s/p debridements -S/p dexamethasone and remdesivir therapy, contact/droplet isolation, vitamin C/vitamin D/zinc, anticoagulation per protocol, trend inflammatory markers -Wean mechanical ventilation as tolerated, VAP bundle -HD per nephrology -Transfuse for hemaglobin less than 7, s/p 10 units PRBC during stay -Nephrology, ID, heme-onc, GI , CCM, cardiology consulted,appreciate recommendations -BCR-ABL mutation testing pending -Per infectious disease: s/p ampicillin. On cefepime, discontinued now on meropenem -Monitor leukocytosis and fevers -s/p RJ to trialysis line exchange over wire 08/02 -Resume systemic anticoagulation and monitor for anemia -Amiodarone for rate control -s/p debridement by Dr. Kirk, WOCN consulted, WC per nursing, 07/27 debridement repeated -07/22 COVID-19 PCR negative, discontinued contact/droplet isolation DVT prophylaxis: GI prophylaxis, heparin subcu, SCDs to bilateral LE while in bed Disposition: ICU, ?placement ?trach/peg ?Ltach (awaiting LTAC transfer) 06/18: Patient got intubated overnight. Patient was placed on BiPAP to maintain oxygenation with 100% FiO2 but apparently he found to take off his argueta which made his oxygen saturation go down at 60s/50s and patient was found altered mental status. Code met was called immediately. Patient was transferred to ICU and intubated, patient currently on 2 pressors, intubated with 100% FiO2, renal function noted to be decline, nephrology consulted. Discussed with [place] physician Dr. Thompson and requested call back on Saturday. Poor prognosis, continue to monitor with aggressive supportive care. Also called family/ to update clinical status. 06/19: Repeat COVID test was positive. cont cefepime, remdesivir per ID recommendation. follow inflammatory markers, cbc, bmp. placed on heparin drip for atrial fib 06/20: Remains on mechanical ventilation, on 2 pressors, on heparin drip. discussed with and daughter by phone. Renal function declining. cont supportive care for now. 06/21: Renal function cont to decline, urine outpt sig decreased. started on lasix 80mg BID, plan to follow urine output, if no improvement patient need to start on HD. called and daughter today. updated all clinical details 06/22: Renal function continues to decline with uremia and hyperkalemia. Will need to proceed with hemodialysis. Nephrology discussed with the family and they agrees for the hemodialysis. Patient remains on pressor support and mechanical ventilation. Vas-Cath placed today by vascular started on hemodialysis today. 06/23: 2nd round of HD today, remains on 2 pressors. per RN not tolerating TF, has no record of BM since 06/18. start on stool softner. follow cbc/bmp. updated family ( and daughter) by phone -all question answered to best of my knowledge and to their satisfaction. Patient remains critically ill with a very poor prognosis. 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 06/25/2020 continue supportive care very poor prognosis 06/26/2020 continue supportive care very poor prognosis family updated 06/27/2020 continue supportive care and weaning if possible 06/28/2020 continue supportive care, talk with at length 06/29: Resumed care. K level persistently high. give one dose of bicarbonate, plan for HD today, recheck k after HD. updated family by phone 06/30: updated family by phone. Patient remains on amiodarone drip and vasopressin. Getting HD at the bedside. Tolerating tube feeding at low rate. 07/01: Hb dropped to 6.4 today, transfuse one unit PRBC. patient is off pressor today, remains on amioderone. cont to monitor 07/02: Called patient and updated clinical details. Patient remains critically ill, still intubated. Patient's oxygen requirement and PEEP pressure has went down. Continue weaning protocol per critical care recommendation. Patient remains off pressor. Continue to wean off from amiodarone and plan to rate control with p.o. medications. Tolerating tube feeding. H&H stable today. Order for stool for occult blood. Monitor H&H and BMP. Continue to follow clinically 07/03: discussed with [facility] physician today. Patient back on 100percent Fio2 since last night. planned for emergent Hd today. spiked fever, start IV Cefepime + Vancomycin renally dosed. Restarted Levophed today, remains on amiodarone drip. Patient family was updated by critical care attending today. 07/04: Patient has hemodialysis yesterday and also plan for today for volume overload and pulmonary edema. Patient currently on 80% FiO2. Remains on Levophed and amiodarone. Hemoglobin dropped to 6.7 without any evidence of active bleeding. LFTs remain stable. Repeat Covid test on 06/30 and 07/03 remains positive. Will transfuse another unit of packed RBC today. Called family for update -explained family that patient is critically ill with very poor prognosis. 07/05: Patient on 70% FiO2 with PEEP of 14. h/h stable after transfusion. hy perkalemia improved, cont sodiumbicarbonate pill with TF. follow BMP. off levophed today, remains on amioderone. poor prognosis. 07/06: Patient remains on amiodarone drip, maintaining BP without any pressor. FiO2 requirement trended down to 60% with PEEP of 14. Continue to follow clinically. Plan to wean off amiodarone drip as tolerated. Wean off from sedation as tolerated. Updated family. Patient remains critically ill with poor prognosis. 07/07: Called family for update. Off amiodarone drip today, patient also off pressor. FiO2 requirement trended up again to 80-100%. Continue to provide supportive care, monitor clinically. Having difficulty to wean off from the vent support. Patient is persistently positive for COVID-19 and COVID-19 antibody is nonreactive. Patient remains critically ill with very poor prognosis. 07/08: Continue supportive care. Residential Counselor manager content and behavioral health tech input noted. Prognosis remains guarded to poor. Management per team. Critical care time 35-minute 07/09/20 patient is tachycardic. Heart rate 121. Hemoglobin 7.3. Patient is having hemodialysis. Continue supportive care. Patient having difficulty to wean off from the vent support. Prognosis is poor. Nephrology and cardiology follow-up. Recheck CBC BMP in the morning. Continue current management. 07/10/20 patient seen and examined, remains on full ventilator patient is doing better. Patient is off pressor. heart rate 123. Hemoglobin 6.8 and hematocrit 20.7. WBC is 18.1. Continue supportive care. Patient having difficulty to wean off from the vent support. We will started on Zosyn 4.5 g IV every 8 hours. Will transfuse 1 unit of packed red blood cell. Prognosis is poor. Nephrology and cardiology follow up. Recheck CBC BMP in the morning 07/11: remains off vasopressor, h/h appropriately responded to 1 unit PRBC. HD today. Remain on MV with fiO2 at 70%. peep 10. No acute events reported overnight. 07/12: Patient remains in atrial fibrillation on the drip pumper, vasopressor support with Levophed and vasopressin, sedated with fentanyl and propofol. Vent settings: CMV 500/25/14/0.60. Patient remains hypercarbic on ABG 07/13: Patient remains on vasopressin, fentanyl and propofol with rectal tube in place. This morning some examination patient was on assist control 25/500/14/0.60. Patient received hemodialysis today. No acute events reported overnight. 07/14: Remains on vasopressin, fentanyl and propofol with tube in place. Rectal tube in place with noted blood clots, GI consulted, on 07/13 H/H dropped from 8.7/27 to 7.4/22 and anticoagulation discontinued. This morning I spoke to his who still wishes for the patient to remain a full code despite update with continued use of vasopressor (vasopressin), current ventilatory support (CMV 5 00/25/14/0.60) and recent development of rectal bleeding. Patient's family requests an update from [facility] and GI. Cardio changed amio from PO to IV given elevated HR 07/15: Today the patient received a total of 5 units of PRBC and is still having bleeding through his rectal tube. CTA abdomen/pelvis is pending, patient remains on Levophed, fentanyl, propofol, vasopressin and received hemodialysis today. He was also hyperkalemic today to 6 and he received insulin and D50. Extensive conversation with family conducted by [facility] and hospitalist and his and 2 daughters did visit him today at the bedside. 07/16: Continues with full ventilatory support. FMS still inplace with some loose bloody stool. Still on multiple pressors, Bilateral swollen and generalized anascara. Monitor H/H and transfuse as needed. Monitor K level. Discussed with family at bedside yesterday. 07/17: Continue supportive care, transfusion blood possible in am with HD, continue abx, very poor prognosis, blood pressure still labile. Discussed with nurse at bedside 07/18: CTA abdomen/pelvis completed, antibiotics changed to Zosyn per infectious disease, remains on mechanical ventilation 450/25/12/0.55 continue amiodarone drip for 24 more hours, blood culture grew Enterococcus. Remains sedated on propofol and fentanyl. Not on vasopressor support today 07/19: No acute events reported overnight, remains sedated with fentanyl and propofol and off vasopressor therapy today. 07/20: s/p debridement with surgery today, remains on fentanyl, propofol, Levophed and current vent settings 450/25/10/0.45. Patient will be transferred to a bariatric bed once available. 07/21: Continue current management, wean ventilator as tolerated, IV antibiotics deescalated to ampicillin. Per infectious disease no need to exchange/remove l pan unless repeat blood cultures turn positive. The time my examination patient was sedated on fentanyl and propofol and remains off vasopressor support. 07/22: At the time my examination patient is sedated on fentanyl and propofol and remains off vasopressor support, repeat COVID-19 PCR negative. Patient remains on ampicillin. H/H remained stable and GI has signed off. Mechanical ventilation weaning as tolerated. 07/23. He remains sedated on fentanyl and propofol. On mechanical ventilation. On levophed. repeat COVID-19 PCR negative. Patient remains on ampicillin. H/H remained stable and GI has signed off. 07/24. He remains sedated and on mechanical ventilation. On levophed. repeat COVID-19 PCR negative. On ampicillin. ID recs appreciated. Labs reviewed 07/25: Patient remains sedated on fentanyl and Diprivan and remains on mechanical ventilation. Repeat CXR and still has leukocytosis. Patient is n.p.o. for trach and PEG with surgery. 07/26: Remains sedated on fentanyl and propofol. Remains on vasopressor support with Levophed. Current vent settings CMV 450/20/8/0.40. Patient is scheduled for PEG/trach with surgery. No acute events reported overnight. 07/27: Debridement with surgery to sacrum:, Activity restarted, remains sedated on propofol/fentanyl and Precedex support with Levophed. Current vent settings CMV 450/20/8/135. S/p trach/PEG with surgery 07/26. Patient remains afebrile however leukocytosis slightly worse today and he is still on his ampicillin. Patient was hypoglycemic overnight. 07/28: Patient remains sedated on propofol and fentanyl. Continue amiodarone drip for rate control. Patient be started on pressors of Levophed last evening. Patient currently with PSV/CPAP FiO2 35% PEEP of 8 and pressure support of 20. Wean mechanical ventilation as tolerated, VAP bundle. Continue hemodialysis per nephrology recommendations. Continue antibiotics per ID recommendations. Hold systemic anticoagulation in the setting of severe anemia. Patient with status post debridement on 07/27. 07/29: Continue sedation per pulmonary. Amiodarone drip for rate control. Continue vasopressors to maintain MAP > 65. Mechanical ventilation currently AC mode rate of 20 tidal volume 450, FiO2 35% and PEEP of 8. Wean mechanical ventilation as tolerated, VAP bundle. Continue hemodialysis per nephrology recommendations. Continue antibiotics per ID recommendations until 08/01/2020. Repeat blood cultures have been negative. Hold systemic anticoagulation in the setting of severe anemia. 07/30: Patient currently with AC mode rate of 14, tidal volume 450, FiO2 40% and PEEP of 8. Wean mechanical ventilation as tolerated, VAP bundle. Continue hemodialysis per nephrology recommendations. Continue antibiotics per ID recommendations. Hold systemic anticoagulation in the setting of severe anemia. 07/31: Patient currently with AC mode ventilation rate 30, tidal volume 450 FiO2 100%, pressure support 16 and PEEP of 8. Wean mechanical ventilation as tolerated, VAP bundle. Continue hemodialysis per nephrology recommendations. Continue antibiotics per ID recommendations. Patient currently on ampicillin. Hold systemic anticoagulation in the setting of severe anemia. Continue restraints for safety. Continue pressors to maintain MAP > 65. Awaiting family decision to discharge to LTAC. 08/01: If patient develops worsening sepsis ID would like to initiate vancomycin and cefepime, and [facility] would like to add vasopressin. The time my examination patient is on assist control 450/30/8/.60 with an ABG of 7.3/42/111/21 with a base excess of -4. Patient remains sedated on propofol and fentanyl with vasopressor support with Levophed. No acute events reported overnight. Per vascular surgery if patient's blood cultures are positive will consider a Vas- Cath exchange on a clean wire with ChloraPrep during the exchange and attempt to decrease bioburden. No acute events reported overnight. Patient's H/H today was 6.8/20.5 and he will receive 1 unit PRBC and we will recheck CBC in the a.m. and transfuse as needed. 08/02: Right IJ dialysis catheter changed over wire, per [facility] ok to transfer to LTAC after next HD session and ID started cefepime. The time my examination patient remains on vasopressin and Levophed. Remains on assist control 450/30/H/0.60 with a T-max of 100.7 overnight. His sputum is growing GNR. 08/03: Tracheal aspirate from 08/03 shows heavy growth of gram-negative rods and patient is on cefepime. His IJ IVC was changed over wire to IJ dialysis yesterday. Patient remains on assist control 450/30/8/0.40 and sedated on propofol and fentanyl and the vasopressor support with Levophed. Patient received hemodialysis today. Patient remains in atrial flutter however his heart rate 110s and cardiology is aware. 08/04: At the time my examination patient was on vasopressin at 0.03 units and sedated with fentanyl and propofol. Current vent settings 450/25/8/0.40 and his rate was decreased per [facility]. RT to obtain ABG tonight. [facility] has restarted the patient on heparin subcu and we will monitor for bleeding. Patient is awaiting LTAC transfer. Infectious disease has started the patient on meropenem renally adjusted due to MDR Pseudomonas. Patient is status post debridement with surgery yesterday 08/05: The time of examination patient was on Levophed at 4 MCG, sedated on propofol and fentanyl and on assist control 450/20/8/0.40. Patient will be dialyzed today as he is on Saturday HD patient. We are still awaiting LTAC placement. No acute events reported overnight. Patient still remains on renally dosed antibiotic therapy. 08/06/20; patient agree multidrug-resistant Pseudomonas from sputum, blood culture was positive for Enterococcus. ID was consulted and patient is on m eropenem since 08/04/2020. Patient is still spiking fever. Patient is off pressors since yesterday. Blood pressure is stable. Patient is a bit tachycardic 118. I have discussed with [place] physician and they are planning to take him to [place]. Patient is stable for transfer. Disposition: DC/[place]-[facility] Final Discharge Diagnosis (Prints w/discharge instructions): Septic shock, Enterococcus bacteremia. Multidrug-resistant Pseudomonas aeruginosa in the sputum. Acute hypoxic respiratory failure, status post trach, on mechanical ventilation. COVID-19 infection. Paroxysmal A. fib. On PEG tube feeds. Metabolic encephalopathy, unresponsive. Stage IV sacral decubitus ulcer. Acute renal failure on hemodialysis. Anemia requiring transfusion. . . - Discharge Diagnoses (1) Acidosis Status: Acute (2) Acute renal failure Status: Acute Qualifiers: Acute renal failure type: with acute tubular necrosis Qualified Code(s): N17.0 - Acute kidney failure with tubular necrosis (3) Acute respiratory failure with hypoxia Status: Acute (4) Anemia Status: Acute Qualifiers: Other causes of anemia: acute posthemorrhagic (5) Atrial fibrillation with rapid ventricular response Status: Acute (6) COVID-19 Status: Acute (7) Elevated LFTs Status: Acute (8) Hyperkalemia Status: Acute (9) Pneumonia due to COVID-19 virus Status: Acute (10) Pressure ulcer of sacral region, stage 4 Status: Acute (11) Respiratory failure Status: Acute (12) Severe sepsis with septic shock Status: Acute (13) Transaminitis Status: Acute Core Measure Documentation - Palliative Care Palliative Care/ Comfort Measures: Not Applicable - Core Measures Any of the following diagnoses?: none Exam - Physical Exam Narrative exam: Patient is on PEG and trach, on mechanical ventilation. FiO2 50%, PEEP 8 The patient appeared well nourished and normally developed. Vital signs as documented. Head exam is unremarkable. No scleral icterus . Neck is without jugular venous distension, thyromegaly, or carotid bruits. Lungs are clear to auscultation. Cardiac exam reveals regular rate and Rhythm. Abdominal exam reveals normal bowel sounds, nontender, no organomegaly. Extremities are nonedematous and both femoral and pedal pulses are normal. BEAM DEPARTMENT SUPERVISOR: Patient is nonresponsive. - Constitutional Vitals: Temp Pulse Resp BP Pulse Ox 100.0 F H 113 H 29 H 135/62 94 08/06/20 16:00 08/06/20 18:00 08/06/20 18:00 08/06/20 18:00 08/06/20 18:00 Plan Activity: advance as tolerated Weight Bearing Status: Weight Bear as Tolerated Diet: advance as tolerated Wound: per your surgeon's advice, per wound nurse instructions Additional Instructions: Patient transferred to [facility] service Follow up with: ARIES WILKINSON MD [Other] - 3-5 Days ELKIN MANRIQUEZ MD [Staff Physician] - 7 Days JACINTO LATHAM MD [Staff Physician] - 7 Days RENETTA NICOLE MD [Staff Physician] - 7 Days MANE KIRK MD [Staff Physician] - 7 Days JERE DESAI MD [Staff Physician] - 7 Days
== END 2020-08-06 18:20 | disposition short-term general hospital (02) | DRG 3 ==
LOC: ED 11:32 → 4A 14:17 → 3A 15:57 → IMCU 18:17 → CC1 23:39
PROVIDERS: ADMIT Internal Medicine; ATTEND Internal Medicine
PROC: 5A1955Z Respiratory Ventilation, Greater than 96 Consecutive Hours (ICD-10-PCS; principal; 2020-06-17)
PROC: 0BH17EZ Insertion of Endotracheal Airway into Trachea, Via Natural or Artificial Opening (ICD-10-PCS; 2020-06-17)
PROC: XW033E5 Introduction of Remdesivir Anti-infective into Peripheral Vein, Percutaneous Approach, New Technology Group 5 (ICD-10-PCS; 2020-06-17)
PROC: XW13325 Transfusion of Convalescent Plasma (Nonautologous) into Peripheral Vein, Percutaneous Approach, New Technology Group 5 (ICD-10-PCS; 2020-06-17)
PROC: 30233N1 Transfusion of Nonautologous Red Blood Cells into Peripheral Vein, Percutaneous Approach (ICD-10-PCS; 2020-06-17)
PROC: 4A033R1 Measurement of Arterial Saturation, Peripheral, Percutaneous Approach (ICD-10-PCS; 2020-06-17)
PROC: 5A09357 Assistance with Respiratory Ventilation, Less than 24 Consecutive Hours, Continuous Positive Airway Pressure (ICD-10-PCS; 2020-06-17)
PROC: 5A1D70Z Performance of Urinary Filtration, Intermittent, Less than 6 Hours Per Day (ICD-10-PCS; 2020-06-22)
PROC: 5A1D70Z Performance of Urinary Filtration, Intermittent, Less than 6 Hours Per Day (ICD-10-PCS; 2020-06-23)
PROC: 5A1D70Z Performance of Urinary Filtration, Intermittent, Less than 6 Hours Per Day (ICD-10-PCS; 2020-06-24)
PROC: 5A1D70Z Performance of Urinary Filtration, Intermittent, Less than 6 Hours Per Day (ICD-10-PCS; 2020-06-27)
PROC: 5A1D70Z Performance of Urinary Filtration, Intermittent, Less than 6 Hours Per Day (ICD-10-PCS; 2020-06-28)
PROC: 5A1D70Z Performance of Urinary Filtration, Intermittent, Less than 6 Hours Per Day (ICD-10-PCS; 2020-06-29)
PROC: 5A1D70Z Performance of Urinary Filtration, Intermittent, Less than 6 Hours Per Day (ICD-10-PCS; 2020-06-30)
PROC: 5A1D70Z Performance of Urinary Filtration, Intermittent, Less than 6 Hours Per Day (ICD-10-PCS; 2020-07-01)
PROC: 5A1D70Z Performance of Urinary Filtration, Intermittent, Less than 6 Hours Per Day (ICD-10-PCS; 2020-07-03)
PROC: 5A1D70Z Performance of Urinary Filtration, Intermittent, Less than 6 Hours Per Day (ICD-10-PCS; 2020-07-04)
PROC: 5A1D70Z Performance of Urinary Filtration, Intermittent, Less than 6 Hours Per Day (ICD-10-PCS; 2020-07-06)
PROC: 5A1D70Z Performance of Urinary Filtration, Intermittent, Less than 6 Hours Per Day (ICD-10-PCS; 2020-07-08)
PROC: 5A1D70Z Performance of Urinary Filtration, Intermittent, Less than 6 Hours Per Day (ICD-10-PCS; 2020-07-09)
PROC: 5A1D70Z Performance of Urinary Filtration, Intermittent, Less than 6 Hours Per Day (ICD-10-PCS; 2020-07-11)
PROC: 5A1D70Z Performance of Urinary Filtration, Intermittent, Less than 6 Hours Per Day (ICD-10-PCS; 2020-07-13)
PROC: 0DJD8ZZ Inspection of Lower Intestinal Tract, Via Natural or Artificial Opening Endoscopic (ICD-10-PCS; 2020-07-15)
PROC: 0DJ08ZZ Inspection of Upper Intestinal Tract, Via Natural or Artificial Opening Endoscopic (ICD-10-PCS; 2020-07-15)
PROC: 5A1D70Z Performance of Urinary Filtration, Intermittent, Less than 6 Hours Per Day (ICD-10-PCS; 2020-07-15)
PROC: 5A1D70Z Performance of Urinary Filtration, Intermittent, Less than 6 Hours Per Day (ICD-10-PCS; 2020-07-16)
PROC: 02HV33Z Insertion of Infusion Device into Superior Vena Cava, Percutaneous Approach (ICD-10-PCS; 2020-07-17)
PROC: B548ZZA Ultrasonography of Superior Vena Cava, Guidance (ICD-10-PCS; 2020-07-17)
PROC: 5A1D70Z Performance of Urinary Filtration, Intermittent, Less than 6 Hours Per Day (ICD-10-PCS; 2020-07-18)
PROC: 5A1D70Z Performance of Urinary Filtration, Intermittent, Less than 6 Hours Per Day (ICD-10-PCS; 2020-07-19)
PROC: 5A1D70Z Performance of Urinary Filtration, Intermittent, Less than 6 Hours Per Day (ICD-10-PCS; 2020-07-20)
PROC: 5A1D70Z Performance of Urinary Filtration, Intermittent, Less than 6 Hours Per Day (ICD-10-PCS; 2020-07-22)
PROC: 5A1D70Z Performance of Urinary Filtration, Intermittent, Less than 6 Hours Per Day (ICD-10-PCS; 2020-07-25)
PROC: 0B113F4 Bypass Trachea to Cutaneous with Tracheostomy Device, Percutaneous Approach (ICD-10-PCS; 2020-07-26)
PROC: 5A1D70Z Performance of Urinary Filtration, Intermittent, Less than 6 Hours Per Day (ICD-10-PCS; 2020-07-26)
PROC: 0JB70ZZ Excision of Back Subcutaneous Tissue and Fascia, Open Approach (ICD-10-PCS; 2020-07-27)
PROC: 0DH63UZ Insertion of Feeding Device into Stomach, Percutaneous Approach (ICD-10-PCS; 2020-07-27)
PROC: 5A1D70Z Performance of Urinary Filtration, Intermittent, Less than 6 Hours Per Day (ICD-10-PCS; 2020-07-28)
PROC: 5A1D70Z Performance of Urinary Filtration, Intermittent, Less than 6 Hours Per Day (ICD-10-PCS; 2020-07-29)
PROC: 5A1D70Z Performance of Urinary Filtration, Intermittent, Less than 6 Hours Per Day (ICD-10-PCS; 2020-08-01)
PROC: 05HM33Z Insertion of Infusion Device into Right Internal Jugular Vein, Percutaneous Approach (ICD-10-PCS; 2020-08-02)
PROC: 5A1D70Z Performance of Urinary Filtration, Intermittent, Less than 6 Hours Per Day (ICD-10-PCS; 2020-08-02)
PROC: 5A1D70Z Performance of Urinary Filtration, Intermittent, Less than 6 Hours Per Day (ICD-10-PCS; 2020-08-03)
PROC: 5A1D70Z Performance of Urinary Filtration, Intermittent, Less than 6 Hours Per Day (ICD-10-PCS; 2020-08-04)
PROC: 5A1D70Z Performance of Urinary Filtration, Intermittent, Less than 6 Hours Per Day (ICD-10-PCS; 2020-08-05)
DX: A41.9 Sepsis, unspecified organism (principal); U07.1 COVID-19; J96.01 Acute respiratory failure with hypoxia; N17.0 Acute kidney failure with tubular necrosis; G93.41 Metabolic encephalopathy; R65.21 Severe sepsis with septic shock; J12.82 Pneumonia due to coronavirus disease 2019; E66.2 Morbid (severe) obesity with alveolar hypoventilation; E87.5 Hyperkalemia; D64.9 Anemia, unspecified; I48.91 Unspecified atrial fibrillation; E87.6 Hypokalemia; R74.01 Elevation of levels of liver transaminase levels; Z79.899 Other long term (current) drug therapy
CPT/HCPCS: 36415; 36430; 36600; 70450; 71045; 74018; 74174; 76770; 80048; 80053; 80074; 80076; 80202; 81001; 82140; 82436; 82550; 82570; 82728; 82803; 82805; 82947; 82962; 83615; 83735; 84100; 84132; 84145; 84300; 84478; 84484; 84520; 85007; 85014; 85018; 85025; 85027; 85049; 85379; 85384; 85520; 85610; 85730; 86140; 86850; 86900; 86901; 86920; 87040; 87070; 87076; 87103; 87186; 87205; 87641; 93005; 93306; 93970; 94002; 94003; 94640; 94660; 94760; 96374; 96375; G0378; A6260; C9113; J0282; J0290; J0456; J0610; J0690; J0692; J0696; J0885; J1100; J1644; J1815; J1940; J2060; J2185; J2370; J2543; J2704; J2765; J2920; J2997; J3010; J3370; J3480; J7030; J7040; J7042; J7050; J7060; P9016; P9017; Q9967; U0003